=== PATIENT | female | born 1970 | race Caucasian/White ===

== ENCOUNTER 2023-03-06 11:05 | Outpatient (OUT) | payer MEDICAID, SELFPAY ==
--- NOTE | 2023-03-06 11:07 | MM_ITS ---
Patient Name: IKE JONES MR#: [id number] : 1970 Exam Date: 03/06/2023 Ordering Doctor: DR KAYE JARQUIN RADIOLOGY REPORT PROCEDURE: MM TOMOSYNTHESIS SCREENING BI COMPARISON: MG MAMM SCREEN 3D VONNIE CAD, 12/13/2021. MG MAMM SCREEN 3D VONNIE CAD, 11/23/2020. INDICATIONS: Screening Calculator Name NCI Breast Cancer Risk Assessment Tool 5 Year Breast Cancer Risk 1.40% Lifetime Breast Cancer Risk 11.50% Personal Breast Cancer No Personal Ovarian Cancer No Treatments None Family Cancers None LOCATION: [facility] BREAST COMPOSITION: Heterogeneously dense,which may obscure small masses. FINDINGS: DIAGNOSTIC CATEGORY 0--INCOMPLETE: NEED ADDITIONAL IMAGING EVALUATION. Scattered benign-appearing nodules are present. Scattered benign-appearing calcifications are present. Scattered benign-appearing left axillary lymph nodes are present. RIGHT BREAST: New partially circumscribed 2.6 x 2 cm mass lower inner quadrant, mid to posterior breast with associated microcalcifications. Spot imaging and ultrasound follow-up is required. New right axillary lymphadenopathy with an enlarged lymph node measuring 2.7 x 1.8 cm. LEFT BREAST: No significant suspicious finding. RECOMMENDATIONS: ADDITIONAL MAMMOGRAPHIC VIEWS REQUIRED: RIGHT BREAST - spot compression ULTRASOUND: RIGHT BREAST mass and enlarged axillary lymph node PLEASE NOTE: A NORMAL MAMMOGRAM DOES NOT EXCLUDE THE POSSIBILITY OF BREAST CANCER. A CLINICALLY SUSPICIOUS PALPABLE LUMP SHOULD BE BIOPSIED. Dictated by: Vaibhav Lopez MD on 03/06/2023 at 13:25 Approved by: Vaibhav Lopez MD on 03/06/2023 at 13:28
== END 2023-03-06 11:06 | disposition home or self-care (01) ==
LOC: MAMMO 11:05
PROVIDERS: PCP Nurse Practitioner Family; Visit Provider Nurse Practitioner Family
DX: Z12.31 Encounter for screening mammogram for malignant neoplasm of breast (principal); N63.14 Unspecified lump in the right breast, lower inner quadrant
CPT/HCPCS: 77063; 77067

== ENCOUNTER 2023-03-20 09:55 | Outpatient (OUT) | payer MEDICAID, SELFPAY ==
--- NOTE | 2023-03-20 | MM_ITS ---
Patient Name: IKE JONES MR#: [id number] : 1970 Exam Date: 03/20/2023 Ordering Doctor: EMELIA HANNA RADIOLOGY REPORT PROCEDURE: MM DIAGNOSTIC MAMMO UNILAT RT, 03/20/2023, 09:59 US BREAST RT LIMITED, 03/20/2023, 10:16 COMPARISON: MM TOMOSYNTHESIS SCREENING BI, 03/06/2023. INDICATIONS: Abnormal mammogram Calculator Name NCI Breast Cancer Risk Assessment Tool 5 Year Breast Cancer Risk 1.40% Lifetime Breast Cancer Risk 11.50% Personal Breast Cancer No Personal Ovarian Cancer No Treatments None Family Cancers None LOCATION: [facility] BREAST COMPOSITION: Heterogeneously dense,which may obscure small masses. FINDINGS: DIAGNOSTIC CATEGORY 5--HIGHLY SUGGESTIVE OF MALIGNANCY. HIGH PROBABILITY OF MALIGNANCY BASED ON THE FOLLOWING: Identified in the lower inner quadrant of the right breast is a persistent partially circumscribed 2.9 x 2.3 cm mass with pleomorphic calcifications. Identified by ultrasound is a corresponding 2.7 x 2.5 x 2.5 cm angular mass, round in shape with multiple calcifications. Malignancy is suspected. Ultrasound-guided core biopsy is recommended. Identified in the right axilla is enlarged 2.2 x 3.1 cm mass . Ultrasound demonstrates an atypical enlarged lymph node with a thickened cortex measuring 2.0 x 1.4 x 2.9 cm. RECOMMENDATIONS: ULTRASOUND-GUIDED CORE BIOPSY: RIGHT BREAST PLEASE NOTE: A NORMAL MAMMOGRAM DOES NOT EXCLUDE THE POSSIBILITY OF BREAST CANCER. A CLINICALLY SUSPICIOUS PALPABLE LUMP SHOULD BE BIOPSIED. Dictated by: Vaibhav Lopez MD on 03/23/2023 at 07:37 Approved by: Vaibhav Lopez MD on 03/23/2023 at 07:44
--- OUTSIDE RECORDS SUMMARY | 2023-03-20 10:00 | XMS_ITS | CCD ---
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 Name Role Phone SunshineUlisses Attending Unavailable Randy Calle Primary Care Unavailable Jesusita Gee Unavailable RANDY CALLE Primary Care Unavailable Reny, Hua Kraus Admitting Unavail able RenyHua martinez Attending Unavail able Reny, Hua Kraus Admitting Unavail able RANDY CALLE Primary Care Unavailable Reny, Hua Kraus Attending Unavail able RANDY CALLE Primary Care Unavailable Paco Giraldo Attending Unavailable RANDY CALLE Primary Care Unavailable Reny, Hua Kraus Admitting Unavail able RANDY CALLE Consulting Unavailable Reny, Hua Kraus Attending Unavail able Reny, Hua Kraus Admitting Unavail able RANDY CALLE Primary Care Unavailable Hiral Small Consulting Unavailable RenyHua Attending Unavail able RANDY CALLE Primary Care Unavailable Reny, Hua Kraus Admitting Unavail able Reny, Hua Kraus Attending Unavail able Reny, Hua Kraus Admitting Unavail able RANDY CALLE Primary Care Unavailable Reny, Hua Kraus Attending Unavail able KRYSTEN, DR ANNE Admitting Unavailable KRYSTEN, DR ANNE Attending Unavailable ALVA, DR RANDY Jaramillo Primary Care Unavailable KRYSTEN, DR ANNE Consulting Unavailable MILKA, DR KAYE Reynoso Admitting Unavailable MILKA, DR KAYE Reynoso Attending Unavailable ALVA, DR RANDY Jaramillo Primary Care Unavailable KRYSTEN, DR ANNE Consulting Unavailable HARTFORD, DR HIRAL Meza Consulting Unavailable MILKA, DR KAYE Reynoso Consulting Unavailable Jackson WILLETT Primary Care Physician [phone] RANDY CALLE Primary Care Physician [phone] Christopher Harrison Attending Unavailable Christopher Harrison Admitting Unavailable Reid Bauer Attending Unavailable Randy Calle Unavailable Unavailable Unavailable hCristy WRIGHT, Dr. Christopher Gtz Attending Unavailable Christy WRIGHT, Dr. Christopher Gtz Referring Unavailable Alva, Dr. Randy Meier [facility] Unava ilable Christy WRIGHT, Dr. Christopher Gtz Attending Unavailable Christy II, Dr. Christopher Gtz Referring [facility]available [facility] Randy [facility] Unava ilable Christy WRIGHT, Dr. Christopher Gtz Attending Unavailable Christy WRIGHT, Dr. Christopher Gtz Referring Unavailable Alva, Dr. Randy Meier [facility] Unava ilambar Michael, Ms. Brittani Rushing Attending Kristan Michael, Ms. Brittani Rushing Referring Kristan Calle, Dr. Randy Meier [facility] Unava ilBRITTANI Varela Attending Unavailable BRITTANI AVALOS Referring Unavailable Alva, Dr. Randy Meier Primary [facility] Unava ilable Allergies Allergy Classification Reported Allergen(s) Allergy Type Date of Onset Reaction(s) Facility (1 source) Meperidine Drug Allergy 9 [facility] Repository (9 sources) Meperidine; Translations: [meperidine] Drug Allergy anaphylaxis, Eruption of skin (disorder) [facility] [place] (1 source) Adhesive bandage; Translations: [Adhesive Bandage] Propensity to adverse reactions (disorder) [facility] Repository (3 sources) Meperidine; Translations: [Demerol] Drug Allergy 3 [facility] Repository (1 source) Adhesive agent Drug allergy (disorder) 5 [facility] Repository Medications Current Medications Medication Drug Class(es) Dates Sig (Normalized) Sig (Original) [id number] 200 actuat albuterol 0.09 mg/actuat metered dose inhaler (1 source) beta2-Adrenergic Agonist Start: 11-11-2021 take 2 puff(s) by inhalation every four hours as needed Albuterol Sulfate HFA 108 (90 Base) MCG/ACT 2 puffs as needed Inhalation every 4 hrs Oct, Active amoxicillin 875 mg / clavulanate 125 mg oral tablet (1 source) Penicillin-class Antibacterial Start: 11-11-2021 take 1 tablet by mouth every twelve hours Amoxicillin-Pot Clavulanate 875-125 MG 1 tablet Orally every 12 hrs for 7 days Oct, Active benzonatate 100 mg oral capsule (1 source) Non-narcotic Antitussive Start: 07-14-2022 End: 07-21-2022 take 1 capsule by mouth three times daily Tessalon 100 mg Cap 100 mg = 1 cap(s), Oral, TID, X 7 day(s), # 21 cap(s), Refills(s) 0, Pharmacy: [facility]/pharmacy #[id number], 180, cm, 07/14/22 14:05:00 EDT, Height/Length Dosing, 99.7, kg, 07/14/22 14:05:00 EDT, Weight Dosing Start Date: 07/14/22 Stop Date: 07/21/22 Status: Ordered carvedilol 25 mg oral tablet (3 sources) alpha-Adrenergic Bridgette, beta-Adrenergic Bridgette Start: 07-14-2022 carvedilol 25 mg Tab Refills(s) 0 Start Date: 07/14/22 Status: Ordered Coreg Active FeroSul 325 mg oral tablet (2 sources) Start: 07-14-2022 FeroSul 325 mg oral tablet Refills(s) 0 Start Date: 07/14/22 Status: Ordered hydroCHLOROthiazide 12.5 mg / lisinopril 20 mg oral tablet (2 sources) Thiazide Diuretic, Angiotensin Converting Enzyme Inhibitor Start: 07-14-2022 hydrochlorothiazide-l isinopril 12.5 mg-20 mg Tab Refill(s) 0 Start Date: 07/14/22 Status: Ordered Losartan (1 source) Angiotensin 2 Receptor Bridgette Cozaar Active methylPREDNISolone 4 mg oral tablet (1 source) Corticosteroid Start: 11-11-2021 methylPREDNISolone 4 MG as directed Orally Once a day for 6 days Oct, Active traZODone hydrochloride 50 mg oral tablet (9 sources) Serotonin Reuptake Inhibitor Start: 03-30-2020 take 1 mg by mouth twice daily traZODONE 50 mg Tab mg tab(s), Oral, BID Start Date: 03/30/20 Status: Ordered traZODone HCl Ac tive Completed/Discontinued Medications Medication Drug Class(es) Dates Sig (Normalized) Sig (Original) chlorthalidone 50 mg oral tablet (6 sources) Thiazide-like Diuretic Start: 07-21-2022 take 1 tablet by mouth once daily Chlorthalidone 50 MG Oral Tablet TAKE ONE TABLET BY MOUTH DAILY Quantity: 90 Refills: 3 Ordered: 22-Aug-2022 Christopher Harrison MD Start : 21-Jul-2022 Active dose increased Start: 07-21-2022 take 1 tablet by shane th once daily Chlorthalidone 25 MG Oral Tablet TAKE 1 TABLET Daily Quantity: 90 Refills: 3 Ordered: 21-Jul-2022 Christopher Harrison MD Start : 21-Jul-2022 Active cyclobenzaprine hydrochloride 10 mg oral tablet (2 sources) Muscle Relaxant take 1 tablet by mouth at bedtime as needed Cyclobenzaprine HCl - 10 MG Oral Tablet TAKE 1 TABLET AT BEDTIME NEEDED. Quantity: 0 Refills: 0 Ordered: 29-Sep-2022 DO Active lisinopril 20 mg oral tablet (6 sources) Angiotensin Converting Enzyme Inhibitor Start: 023 take 1 tablet by mouth once daily Lisinopril 20 MG Oral Tablet TAKE 1 TABLET DAILY. Quantity: 90 Refills: 3 Ordered: 21-Jul-2022 Christopher Harrison MD Start : 21-Jul-2022 Active 24 hr metoprolol succinate 100 mg extended release oral tablet (6 sources) beta-Adrenergic Bridgette Start: 023 take 1 tablet by mouth once daily Metoprolol Succinate ER 100 MG Oral Tablet Extended Release 24 Hour Take 1 tablet daily Quantity: 90 Refills: 3 Ordered: 21-Jul-2022 Christopher Harrison MD Start : 21-Jul-2022 Active microencapsulated potassium chloride 20 meq extended release oral tablet (6 sources) Start: 023 take 1 tablet by mouth once daily Klor-Con M20 20 MEQ Oral Tablet Extended Release Take 1 tablet daily Quantity: 90 Refills: 3 Ordered: 18-Aug-2022 Christopher Harrison MD Start : 18-Aug-2022 Active Problems Active Problems Problem Classification Problem Date Documented Date Episodic/Chronic Cardiac dysrhythmias (4 sources) Cardiac arrhythmia 03-30-2020 Chronic Essential hypertension (7 sources) Hypertensive disorder; Translations: [Unspecified essential hypertension] Onset: 10-14-2022 Chronic Fluid and electrolyte disorders (6 sources) Hypokalemia; Translations: [Hypopotassemia] Episodic Immunizations and screening for infectious disease (1 source) Encounter for screening for human papillomavirus (HPV); Translations: [ENC SCREENING HUMAN PAPILLOMAVIRUS] Onset: 12-29-2021 Episodic Other nutritional; endocrine; and metabolic disorders (1 source) Obese class I; Translations: [Body mass index (BMI) 30.0-30.9, adult] Onset: 07-14-2022 Chronic Other nutritional; endocrine; and metabolic disorders (9 sources) Obesity; Translations: [Obesity, unspecified] Onset: 07-14-2022 Chronic Other screening for suspected conditions (not mental disorders or infectious disease) (8 sources) Encounter for screening for malignant neoplasm of cervix; Translations: [Encounter for screening mammogram for malignant neoplasm of breast] Onset: 12-13-2021 Episodic Other skin disorders (2 sources) Epidermoid cyst of skin 03-30-2020 Episodic Other upper respiratory infections (1 source) Acute upper respiratory infection; Translations: [Acute upper respiratory infection, unspecified] Onset: 07-14-2022 Episodic Residual codes; unclassified (6 sources) Edema; Translations: [Edema] Episodic Residual codes; unclassified (1 source) Edema, unspecified; Translations: [Edema, unspecified] Onset: 10-14-2022 Episodic Unclassified (1 source) Contact with and (suspected) exposure to covid-19; Translations: [Contact with and (suspected) exposure to covid-19] Past or Other Problems Problem Classification Problem Date Documented Da te Episodic/Chronic Chronic obstructive pulmonary disease and bronchiectasis (1 source) Bronchitis, not specified as acute or chronic Onset: 11-11-2021 Resolved: 11-11-2021 Episodic Otitis media and related conditions (1 source) Otitis media, unspecified, bilateral Onset: 11-11-2021 Resolved: 11-11-2021 Episodic Unclassified (1 source) Contact with and (suspected) exposure to covid-19 Z20.822 Onset: 11-11-2021 Resolved: 11-11-2021 Unclassified (2 sources) Excision of lipoma 03-30-2020 Unclassified (6 sources) Never smoked tobacco; Translations: [Never a smoker] Results Test Name Value Interpretation Reference Range Facility CT Cardiac Scoringon 023 CT Cardiac Scoring Normal -[facility] DO Work Phone: Office Visit (Cardiology)on 09-29-2022 Follow-up visit Diagnoses/Problems Assessed Hypertension (401.9) (I10) Edema (782.3) (R60.9) Class 1 obesity with body mass index (BMI) of 31.0 to 31.9 in adult (278.00,V85.31) (E66.9,Z68.31) Orders Class 1 obesity with body mass index (BMI) of 31.0 to 31.9 in adult Healthy Weight Tips; Status:Complete; Done: [id number] Edema, Hypertension Basic Metabolic Panel; Status:Active; Requested for:[id number]; CT Cardiac Scoring; Status:Active; Requested for:[id number]; Patient taking Metformin or Derivatives? : No Radiologist to Determine Optimal Study : Y What are the patient's signs and symptoms? : JOSE Patient Instructions Please bring all medicines, vitamins, and herbal supplements with you when you come to the office. Prescriptions will not be filled unless you are compliant with your follow up appointments or have a follow up appointment scheduled as per instruction of your physician. Refills should be requested at the time of your visit. PLAN: Through informed decision making process incorporating patients unique circumstances, the following treatment plan will be initiated: 1. Prescription drug management of cardiovascular medication for efficacy, adherence to treatment, side effect assessment and polypharmacy. Current treatment clinically warranted and to continue without modifications. 2. Calcium Score 3. Chem6 4. Return for follow-up; in the interim, contact the office if new symptoms arise. Dr. Harrison 6 months Chief Complaint Blood pressure f/u : 'doing fine' IKE JONES is being seen for a 3 month follow-up of hypertension. Patient presents the office ambulatory with steady gait. Last evaluated in clinic Dr. Harrison June 2022. At that time she was initiated on chlorthalidone and Toprol (prior carvedilol and hydrochlorothiazide discontinued); repeat potassium 2.9 and K-Dur 20 milliequivalents added. At blood pressure follow-up remain with suboptimal control and chlorthalidone was increased to 50 mg daily. Patient presents to the office today overall she reports doing just fine . She does not follow her blood pressure at home. She denies any dizziness or lightheadedness. She remains aerobically active working out 30 minutes cardio and 30 minutes weight lifting, denies any type of exertional complaints. She feels she is becoming more conditioned with improvement in exercise capacity and functional tolerance. She has noted that her lower extremity edema is improving. She denies prior ischemic work-up. Low risk factor profile with treated hypertension, otherwise no hyperlipidemia, diabetes, non-smoker. She is adopted. Discussed availability of calcium score as an additional CAD risk factor predictor and she is in agreement to proceed. She is having difficult time swallowing Kater tablets. We will repeat Chem-6 to follow-up on hypokalemia. Consider adding low-dose Aldactone if warranted. History of Present Illness The patient presents for follow-up of essential hypertension. The patient states she has been doing well with her blood pressure control since the last visit. She has no comorbid illnesses. Symptoms: denies impaired vision, denies dyspnea, denies chest pain, denies intermittent leg claudication and denies lower extremity edema. Associated symptoms include no headache. Home monitoring: The patient is not checking blood pressure at home. Medications: the patient is adherent with her medication regimen. She denies medication side effects. Surgical History Problems History of Breast biopsy excisional Denied: History of Complete colonoscopy History of Hysterectomy Current Meds Medication NameInstruction Chlorthalidone 50 MG Oral TabletTAKE ONE TABLET BY MOUTH DAILY Cyclobenzaprine HCl - 10 MG Oral TabletTAKE 1 TABLET AT BEDTIME NEEDED. Klor-Con M20 20 MEQ Oral Tablet Extended ReleaseTake 1 tablet daily Lisinopril 20 MG Oral TabletTAKE 1 TABLET DAILY. Metoprolol Succinate ER 100 MG Oral Tablet Extended Release 24 HourTake 1 tablet daily traZODone HCl - 50 MG Oral TabletTAKE 1 TABLET AT BEDTIME. Patient did not bring medication list or bottles. Updated verbally with patient Allergies Medication Demerol TABS Swelling; Recorded By: Radha Norwood; 07/21/2022 8:10:36 AM Social History Problems Never a smoker No caffeine use No illicit drug use Social alcohol use (V49.89) (Z78.9) Review of Systems Constitutional: not feeling tired. Cardiovascular: no chest pain, no palpitations and no lower extremity edema. Respiratory: no shortness of breath during exertion, no orthopnea and no PND. Vitals Vital Signs Recorded: [id number] 02:29PM Heart Rate76, L Radial [id number], LUE, Sitting Okjkguwkp73, LUE, Sitting Height5 ft 11 in Jvgbhn289 lb BMI Hbdddjaudb48.52 kg/m2 BSA Calculated2.22 Tobacco Useb) No PHQ-2 #1. Over the last 2 weeks have you felt down, depressed or hopeless? (If yes, answer PHQ-9 below)No PHQ-2 #2. Over the last 2 weeks have you felt little inter (more content not included)... Normal [employer] Tobacco Screening.on 023 Adult depression screening assessment No -[facility] 250 DO Work Phone: Fall risk assessment c) Not medically indicated [facility] 250 DO Work Phone: Tobacco use status CP b) No -[facility] 250 DO Work Phone: Tobacco Screening.on 023 Tobacco use status CPHS b) No [facility] 250 DO Work Phone: BMPon 08-15-2022 Anion gap [Moles/Vol] 10 mmol/L Normal -16 [facility] Comment on above: Performed By: #### 2 [id number], [id number], [id number] #### [facility] [address] [place] [address] Calcium [Mass/Vol] 9.7 mg/dL Normal 8.9-11.1 [facility] Comment on above: Performed By: #### 2 [id number], [id number], [id number] #### [facility] [address] [place] [address] Chloride [Moles/Vol] 102 mmol/L Normal 101-111 [facility] Comment on above: Performed By: #### 2 [id number], [id number], [id number] #### [facility] [address] [place] [address] CO2 [Moles/Vol] 29 mmol/L Normal 21-31 [facility] Comment on above: Performed By: #### 2 [id number], [id number], [id number] #### [facility] [address] [place] [address] Creatinine [Mass/Vol] 0.7 mg/dL Normal 0.5-1.3 [facility] Comment on above: Performed By: #### 2 [id number], [id number], [id number] #### [facility] [address] [place] [address] Glucose [Mass/Vol] 92 mg/dL Normal 55-199 [facility] Comment on above: Result Comment: If t his glucose result represents a fasting glucose, interpretation should refer to the following reference range: 55-99 mg/dL Performed By: #### 2 [id number], [id number], [id number] #### [facility] [address] [place] [address] Potassium [Moles/Vol] 2.9 mmol/L Low 3.5-5.3 [facility] Comment on above: Performed By: #### 2 [id number], [id number], [id number] #### [facility] [address] [place] [address] Sodium [Moles/Vol] 138 mmol/L Normal 135-145 [facility] Comment on above: Performed By: #### 2 [id number], [id number], [id number] #### [facility] [address] [place] [address] Urea nitrogen [Mass/Vol] 15 mg/dL Normal 5-21 [facility] Comment on above: Performed By: #### 2 [id number], [id number], [id number] #### [facility] [address] [place] [address] Urea nitrogen/Creatinine [Mass ratio] 21 No Units High 10-20 [facility] Comment on above: Performed By: #### 2 [id number], [id number], [id number] #### [facility] [address] [place] [address] BNPon 08-15-2022 Int Ctr BNP Pass Normal [facility] Comment on above: Performed By: #### 2 [id number], [id number], [id number] #### [facility] [address] [place] [address] Natriuretic peptide B (Bld) [Mass/Vol] 23 pg/mL Normal 5-80 [facility] Comment on above: Performed By: #### 2 [id number], [id number], [id number] #### [facility] [address] [place] [address] CHEMISTRYOrdered By: SYSTEM SYSTEM on 08-15-2022 Anion gap [Moles/Vol] 10 mmol/L Normal 6 - 16 mEq/L [facility] Remisol Calcium [Mass/Vol] 9.7 mg/dL Normal 8.9 - 11. 1 mg/dL FT Remisol Chloride [Moles/Vol] 102 mmol/L Normal 101 - 111 mmol/L [facility] Remisol Creatinine [Mass/Vol] 0.7 mg/dL Normal 0.5 - 1.3 mg/dL [facility] Remisol GFR/1.73 sq M.predicted among non-blacks MDRD (S/P/Bld) [Vol rate/Area] 105 mL/min/1.73 m2 Normal >=59mL/min/1 .73 m2 [facility] Chem S Glucose [Mass/Vol] 92 mg/dL Normal 55 - 199 mg/dL [facility] Remisol Potassium [Moles/Vol] 2.9 mmol/L Low 3.5 - 5.3 mmol/L [facility] Remisol Sodium [Moles/Vol] 138 mmol/L Normal 135 - 145 mmol/L [facility] Remisol Urea nitrogen [Mass/Vol] 15 mg/dL Normal 5 - 21 mg/dL [facility] Remisol Urea nitrogen/Creatinine [Mass ratio] 21 mg/mg High 10 - 20 FT Remisol Consent for Treatmenton 07-31 Consent for Treatment [id number] 0CD:127 Normal [facility] Laboratory - Chemistry and C hemistry - challengeOrdered By: SYSTEM SYSTEM on 08-15-2022 CO2 [Moles/Vol] 29 mmol/L Normal 21-31 [facility] Niko yuliet Laboratory - Chemistry and C hemistry - challengeOrdered By: Jackson Bettencourt on 08-15-2022 Natriuretic peptide B (Bld) [Mass/Vol] 23 pg/mL Normal 5-80 [facility] HemeJamarS S No Panel Informationon 08-15 105 {mL/min/1.73_m2} Normal >=59 [facility] 250 DO Work Phone: Comment on above: Chronic kidney disea se could be indicated at eGFR's of less than 60 mL/min/1.73m2. Kidney failure is indicated at less than 15 mL/min/1.73m2. 10 {mEq/L} Normal 6-16 [facility] 250 DO Work Phone: 102 mmol/L Normal 101-111 [facility] 250 DO Work Phone: 2.9 mmol/L below low threshold 3.5-5.3 [facility] 250 DO Work Phone: 138 mmol/L Normal 135-145 [facility] 250 DO Work Phone: 9.7 mg/dL Normal 8.9-11.1 [facility] 250 DO Work Phone: 21 {No_Units} above high threshold 10-20 [facility] 250 DO Work Phone: 0.7 mg/dL Normal 0.5-1.3 [facility] 250 DO Work Phone: 15 mg/dL Normal 5-21 [facility] 250 DO Work Phone: 92 mg/dL Normal 55-199 [facility] 250 DO Work Phone: Comment on above: If this glucose resu lt represents a fasting glucose, interpretation should refer to the following reference range: 55-99 mg/dL Pass Normal [facility] 250 DO Work Phone: Physician Orderon 08-15-2022 Physician Order [id number] 0CD:127 Normal [facility] eGFRon 08-15-2022 GFR/1.73 sq M.predicted among non-blacks MDRD (S/P/Bld) [Vol rate/Area] 105 mL/min/1.73 m2 Normal >=59 [facility] Comment on above: Order Comment: Order added by Discern Expert. Result Comment: Treasury Director medina kidney disease could be indicated at eGFR's of less than 60 mL/min/1.73m2. Kidney failure is indicated at less than 15 mL/min/1.73m2. Performed By: #### 2 [id number], [id number], [id number] #### [facility] [address] [place] [address] Office Visit (Cardiology)on 07-21-2022 Follow-up visit Diagnoses/Problems Assessed Hypertension (401.9) (I10) Edema (782.3) (R60.9) Class 1 obesity with body mass index (BMI) of 30.0 to 30.9 in adult (278.00,V85.30) (E66.9,Z68.30) Never a smoker Orders Class 1 obesity with body mass index (BMI) of 30.0 to 30.9 in adult Healthy Weight Tips; Status:Complete - Retrospective Authorization; Done: 21Jul2022 Some eating tips that can help you lose weight.; Status:Complete - Retrospective Authorization; Done: 21Jul2022 Class 1 obesity with body mass index (BMI) of 30.0 to 30.9 in adult, Edema, Hypertension Basic Metabolic Panel; Status:Active - Retrospective Authorization; Requested for:04Aug2022; Brain Natriuretic Peptide BNP; Status:Active - Retrospective Authorization; Requested for:04Aug2022; Health Maintenance IO EKG Electrocardiogram- 12 Lead; Status:Complete; Done: 21Jul2022 Hypertension Start: Chlorthalidone 25 MG Oral Tablet; TAKE 1 TABLET Daily Start: Lisinopril 20 MG Oral Tablet; TAKE 1 TABLET DAILY Start: Metoprolol Succinate ER 100 MG Oral Tablet Extended Release 24 Hour; Take 1 tablet daily SocHx: Never a smoker Tobacco Use Screening; Status:Complete; Done: [id number] Tobacco Use Screening; Status:Complete; Done: [id number] Unlinked Stop: Coreg 25 MG Oral Tablet (Carvedilol) Stop: Lisinopril-hydroCHLORO thiazide 20-12.5 MG Oral Tablet Patient Instructions Please bring all medicines, vitamins, and herbal supplements with you when you come to the office. Prescriptions will not be filled unless you are compliant with your follow up appointments or have a follow up appointment scheduled as per instruction of your physician. Refills should be requested at the time of your visit. Blood Pressure Follow Up In 1 month Follow up in 3 months Chief Complaint IKE JONES is being seen for an initial evaluation of hypertension. History of Present Illness Patient is self-referred for management of essential hypertension. She is on polypharmacy and today has good control but she states that there is significant fluctuation in blood pressures and that more often than not she has high readings. She previously been on Toprol-XL was changed to carvedilol for unknown reasons. I offered to her that this agent is probably superior for blood pressure control and recommend going back to it. I also know she is on lisinopril which is an effective agent but the hydrochlorothiazide could be changed to a more effective thiazide diuretic such as chlorthalidone and I recommended this change as well. Because of the aforementioned changes made we will perform follow-up chemistries including a B natruretic peptide mainly because of her complaints of leg edema. I proposed a blood pressure check in about a month and office visit with me in about 3 months. We discussed in detail other cardiac signs and symptoms and she has no angina heart failure or arrhythmia symptomatology and because of all the above we believe she is otherwise well. I did advocate the merits of diet and weight loss and its favorable impact on hypertension. Surgical History Problems History of Breast biopsy excisional Denied: History of Complete colonoscopy History of Hysterectomy Current Meds Medication NameInstruction Coreg 25 MG Oral TabletTAKE 1 TABLET Twice daily Lisinopril-hydroCHLORO thiazide 20-12.5 MG Oral TabletTAKE 1 TABLET DAILY. traZODone HCl - 50 MG Oral TabletTAKE 1 TABLET AT BEDTIME. Allergies Medication Demerol TABS Swelling; Recorded By: Radha Norwood; 07/21/2022 8:10:36 AM Social History Problems Never a smoker No caffeine use No illicit drug use Social alcohol use (V49.89) (Z78.9) Review of Systems Constitutional: not feeling tired. Eyes: no eyesight problems. ENT: no hearing loss and no nosebleeds. Cardiovascular: no intermittent leg claudication and as noted in HPI. Respiratory: no chronic cough and no shortness of breath. Gastrointestinal: no change in bowel habits and no blood in stools. Genitourinary: no urinary frequency. Skin: no skin rashes. Neurological: no seizures and no frequent falls. Psychiatric: no depression and not suicidal. All other systems have been reviewed and are negative for complaint. Vitals Vital Signs Recorded: [id number] 08:15AMRecorded: [id number] 08:14AM Kubugltn950, RUE, Ojfnhhg221, LUE, Sitting Mjmvjfjxi00, RUE, Kznxniy50, LUE, Sitting Heart Rate59, Apical Height5 ft 11 in Thfrgr966 lb BMI Pazyygxwgu19.82 kg/m2 BSA Calculated2.2 Tobacco Useb) No PHQ-2 #1. Over the last 2 weeks have you felt down, depressed or hopeless? (If yes, answer PHQ-9 below)No PHQ-2 #2. Over the last 2 weeks have you felt little interest or pleasure in doing things? (If yes, answer PHQ-9 below)No Falls Screening (Age 18+)a) No falls within the last year EKG done in office today Physical Exam Constitutional: alert and in no acute distress. Eyes: no erythema, swelling or discharge from the eye . Neck: ne (more content not included)... Normal [employer] Tobacco Screening.on 023 Adult depression screening assessment No [facility] [facility] Work Phone: Fall risk assessment a) No falls within the last year [facility] 250 DO Work Phone: Tobacco use status CP b) No -[facility] 250 DO Work Phone: Family Medicine Office/Clini c Noteon 07-14-2022 Family Medicine Office/Clinic Note Chief Complaint EST migraine ,congestion cough, chest HPI Staff 51 year old female presents with migraine and body aches started with migraine nirav afternoon and then it was both head and chest History of Present Illness I have reviewed and verified the staff HPI to be accurate for this encounter. 51-year-old female presents here today with chief complaint of migraine and body aches. Patient states she had a migraine that started Thursday afternoon she has a history of chronic migraines that is not the worst headache of her life this is not a thunderclap headache. States it feels like her typical migraines. States some light sensitivity intermittent nausea no vomiting episodes. Denies any head injuries or trauma. She states then she developed some cold-like symptoms with cough and congestion. States the nasal congestion and cough is not helping with her headache. Denies a loss of taste or smell. Cough is dry nonproductive. She denies any recent sick contacts or recent travel denies any high fevers chills. Denies any COVID-19 exposure that she is aware of. States only medication allergies to Demerol. Review of Systems PHQ Score Initial Depression Screen Score: 0 Physical Exam Vitals & Measurements T: 37.4 ?C(Oral) HR: 76(Peripheral) BP: 120/86 SpO2: 98% HT: 71 in HT: 180 cm WT: 99.7 kg WT: 219.34 lb BMI: 30.77 General: Well developed, well nourished, in no acute distress Eyes: not assessed Ears: Bilateral tympanic membranes are within normal limits slight fluid behind bilateral TMs no erythema no bulging. External auditory canals within normal limits. Nose: mild nasal mucosa inflammation and edema Mouth: No tonsillar erythema or exudate. No signs of peritonsillar abscess. No trismus or drooling. Moist mucous membrane. Neck: no adenopathy Lungs: clear to auscultation throughout, no wheezing, no rales. No respiratory distress Cardio: regular rate and rhythm, no murmur Abdomen: not assessed Musculoskeletal: not assessed Extremity: not assessed Neurologic: not assessed Skin: No rashes, ulcerations, or suspicious lesions Mental Status: Alert and oriented x3. Normal mood and affect Assessment/Plan Offered patient COVID-19 testing which she declines. 1. Viral URI (J06.9: Acute upper respiratory infection, unspecified) Discussed exam and hx are consistent with viral illness. Advised of typical duration. Discussed antibiotics unfortunately do not treat viral illnesses, it will take time to run course- usually 7-14 days. Fluids/rest encouraged, PRN tylenol/ibuprofen for any pain. May use tessalon one eveyr 8 hours as needed for cough for symptomatic tx. this was sent to the pharmacy for you. Follow up with PCP if not improving over next 7-10 days or significantly worsening symptoms. Patient and/or parent verbalized understanding of tx plan. Ordered: benzonatate, 100 mg = 1 cap(s), Oral, TID, X 7 day(s), # 21 cap(s), Refills(s) 0, Pharmacy: [facility]/pharmacy #[id number], 180, cm, 07/14/22 14:05:00 EDT, Height/Length Dosing, 99.7, kg, 07/14/22 14:05:00 EDT, Weight Dosing 2. BMI 30.0-30.9,adult (Z68.30: Body mass index [BMI] 30.0-30.9, adult) The standard range for ages 18 and older is >=18.5 and < 25 kg/m2. Your BMI today was above this range, this falls in the overweight to obese category and there are medical benefits to weight loss. We can offer counselling, referral, and/or medical support in addressing this problem. Your BMI and weight management will be followed at subsequent visits. Ordered: Body Mass Index (BMI) documented 3008F 3. Obese (E66.9: Obesity, unspecified) discussed healthy diet and exercise with the pt. Follow-up With When Contact Information BRENNON JAMESON, BOBBY Sifuentes Additional Instructions: Patient Education BMI for Adults Upper Respiratory Infection, Adult Problem List/Past Medical History Ongoing Dysrhythmia, cardiac Epidermal cyst Historical Cardiac dysrhythmia Excision of lipoma Procedure/Surgical History Hysterectomy (03/02/2005), Lipoma of back. Medications carvedilol 25 mg Tab FeroSul 325 mg oral tablet hydrochlorothiazide-li sinopril 12.5 mg-20 mg Tab Tessalon 100 mg Cap, 100 mg= 1 cap(s), Oral, TID traZODONE 50 mg Tab, Oral, BID Allergies Demerol (Rash) Social History Alcohol - Denies Alcohol Use, 03/30/2020 Substance Abuse - Denies Substance Abuse, 03/30/2020 Tobacco Never (less than 100 in lifetime) Tobacco Use:. Never Smokeless Tobacco Use:., 07/14/2022 Family History Patient was adopted Immunizations Vaccine Date Status Comments SARS-CoV-2 (COVID-19) mRNA BNT-162b2 vax 12/06/2020 Recorded 2022-07-14: TPV50 SARS-CoV-2 (COVID-19) mRNA BNT-162b2 vax 11/15/2020 Recorded 2022-07-14: TPV50 influenza virus vaccine, inactivated 11/20/2019 Recorded influenza virus vaccine, inactivated 11/14/2019 Recorded influenza virus vaccine, inactivated 12/13/2018 Recorded influenza virus vaccine, inactivated 12/10/2017 Recorded diphtheria/pertussis, riri (more content not included)... Normal [facility] Comment on above: Result Comment: Elec tronically Signed By: Juancarlos CONTE, Reid Mcgregor\.br\Date and Time Signed: 07/14/22 14:20 EDT Patient Educationon 07-15-19 Patient Education Infectious Disease Upper Respiratory Infection, Adult An upper respiratory infection (URI) is a common viral infection of the nose, throat, and upper air passages that lead to the lungs. The most common type of URI is the common cold. URIs usually get better on their own, without medical treatment. What are the causes? A URI is caused by a virus. You may catch a virus by: ? Breathing in droplets from an infected person's cough or sneeze. ? Touching something that has been exposed to the virus (is contaminated) and then touching your mouth, nose, or eyes. What increases the risk? You are more likely to get a URI if: ? You are very young or very old. ? You have close contact with others, such as at work, school, or a health care facility. ? You smoke. ? You have long-term (chronic) heart or lung disease. ? You have a weakened disease-fighting system (immune system). ? You have nasal allergies or asthma. ? You are experiencing a lot of stress. ? You have poor nutrition. What are the signs or symptoms? A URI usually involves some of the following symptoms: ? Runny or stuffy (congested) nose. ? Cough. ? Sneezing. ? Sore throat. ? Headache. ? Fatigue. ? Fever. ? Loss of appetite. ? Pain in your forehead, behind your eyes, and over your cheekbones (sinus pain). ? Muscle aches. ? Redness or irritation of the eyes. ? Pressure in the ears or face. How is this diagnosed? This condition may be diagnosed based on your medical history and symptoms, and a physical exam. Your health care provider may use a swab to take a mucus sample from your nose (nasal swab). This sample can be tested to determine what virus is causing the illness. How is this treated? URIs usually get better on their own within 7?10 days. Medicines cannot cure URIs, but your health care provider may recommend certain medicines to help relieve symptoms, such as: ? Mpcv-buf-xvmrpxb cold medicines. ? Cough suppressants. Coughing is a type of defense against infection that helps to clear the respiratory system, so take these medicines only as recommended by your health care provider. ? Fever-reducing medicines. Follow these instructions at home: Activity ? Rest as needed. ? If you have a fever, stay home from work or school until your fever is gone or until your health care provider says your URI cannot spread to other people (is no longer contagious). Your health care provider may have you wear a face mask to prevent your infection from spreading. Relieving symptoms ? Gargle with a mixture of salt and water 3?4 times a day or as needed. To make salt water, completely dissolve ??1 tsp (3?6 g) of salt in 1 cup (237 mL) of warm water. ? Use a cool-mist humidifier to add moisture to the air. This can help you breathe more easily. Eating and drinking ? Drink enough fluid to keep your urine pale yellow. ? Eat soups and other clear broths. General instructions ? Take csym-kxh-wbhagoc and prescription medicines only as told by your health care provider. These include cold medicines, fever reducers, and cough suppressants. ? Do not use any products that contain nicotine or tobacco. These products include cigarettes, chewing tobacco, and vaping devices, such as e-cigarettes. If you need help quitting, ask your health care provider. ? Stay away from secondhand smoke. ? Stay up to date on all immunizations, including the yearly (annual) flu vaccine. ? Keep all follow-up visits. This is important. How to prevent the spread of infection to others URIs can be contagious. To prevent the infection from spreading: ? Wash your hands with soap and water for at least 20 seconds. If soap and water are not available, use hand manager erp. ? Avoid touching your mouth, face, eyes, or nose. ? Cough or sneeze into a tissue or your sleeve or elbow instead of into your hand or into the air. Contact a health care provider if: ? You are getting worse instead of better. ? You have a fever or chills. ? Your mucus is brown or red. ? You have yellow or brown discharge coming from your nose. ? You have pain in your face, especially when you bend forward. ? You have swollen neck glands. ? You have pain while swallowing. ? You have white areas in the back of your throat. Get help right away if: ? You have shortness of breath that gets worse. ? You have severe or persistent: ? Headache. ? Ear pain. ? Sinus pain. ? Chest pain. ? You have chronic lung disease along with any of the following: ? Making high-pitched whistling sounds when you breathe, most often when you breathe out (wheezing). ? Prolonged cough (more than 14 days). ? Coughing up blood. ? A change in your usual mucus. ? You have a stiff neck. ? You have changes in your: ? Vision. ? Hearing. ? Thinking. ? Mood. These symptoms may be an emergency. Get help (more content not included)... Normal [facility] PAP ACOG PANEL 2: 30 to 65on 01-03-2022 . . Normal [facility] Comment on above: Result Comment: Perf ormed at: WB Performed By: #### 4 [id number] #### [facility] [address] [address] [address] Daniel Mcgregor Age Gdln ACOG Testing 30-65 Normal [facility] Comment on above: Performed By: #### 4 [id number] #### [facility] [address] [place], [place] [address] Dr. Daniel Mcgregor DIAGNOSIS: Comment Normal [facility] Comment on above: Result Comment: NEGA TIVE FOR INTRAEPITHELIAL LESION OR MALIGNANCY. Performed at: WB Performed By: #### 4 [id number] #### [facility] [address] [address] [address] Daniel Mcgregor HPV Aptima Negative Normal Negative [facility] Comment on above: Result Comment: This nucleic acid amplification test detects fourteen high-risk HPV types (16,18,31,33,35,39,45,51,52,56,58,59,66,68) without differentiation. Performed at: =G Performed By: #### 4 [id number] #### [facility] [address] [address] [address] Daniel Mcgregor HPV Genotype Reflex Comment Normal [facility] Comment on above: Result Comment: Crit eria not met, HPV Genotype not performed. Performed at: WB Performed By: #### 4 [id number] #### [facility] [address] [place] [address] Dr. Daniel Mcgregor Methodology: Comment Normal [facility] Comment on above: Result Comment: This liquid based ThinPrep(R) pap test was screened with the use of an image guided system. Performed at: WB Performed By: #### 4 [id number] #### [facility] [address] [place] [address] Dr. Daniel Mcgregor Note: Comment Normal [facility] Comment on above: Result Comment: The Pap smear is a screening test designed to aid in the detection of premalignant and malignant conditions of the uterine cervix. It is not a diagnostic procedure and should not be used as the sole means of detecting cervical cancer. Both false-positive and false-negative reports do occur. . Performed at: WB Performed By: #### 4 [id number] #### [facility] [address] [address] [address] Daniel Mcgregor Performed by: Comment Normal [facility] Comment on above: Result Comment: Roxann Ambriz [employer] Sales Consultant (ASCP) Performed at: WB Performed By: #### 4 [id number] #### [facility] [address] [place] [address] Dr. Daniel Mcgregor Specimen adequacy: Comment Normal [facility] Comment on above: Result Comment: Sati sfactory for evaluation. No endocervical component is identified. Performed at: WB Performed By: #### 4 [id number] #### [facility] [address] [address] [address] Daniel Mcgregor MG MAMM SCREEN 3D VONNIE CADon 12-13-2021 MG MAMM SCREEN 3D VONNIE CAD Patient: IKE JONES Exam Date: 12/13/2021 : 1970 Gender:F Ordering : DR KAYE JARQUIN Admission #: [id number] Family : DR DAYANA BASHIR . Order #: [id number] CLICK HERE TO VIEW EXAM RADIOLOGY REPORT PROCEDURE: MAMMOGRAM SCREENING 3D BILATERAL CAD COMPARISON: MG MAMM SCREEN 3D VONNIE CAD, 11/23/2020. MG MAMM SCREEN VONNIE W CAD, 11/11/2019. INDICATIONS: Screening mammography Calculator Name NCI Breast Cancer Risk Assessment Tool 5 Year Breast Cancer Risk 1.40% Lifetime Breast Cancer Risk 11.70% Personal Breast Cancer No Personal Ovarian Cancer No Treatments None Family Cancers None LOCATION: [facility] BREAST COMPOSITION: Heterogeneously dense,which may obscure small masses. FINDINGS: DIAGNOSTIC CATEGORY 1--NEGATIVE. NO CHANGE FROM COMPARISON ASSESSMENT. Scattered benign-appearing calcifications are present. Scattered benign-appearing lymph nodes are present. RIGHT BREAST: No significant suspicious finding. Linear scar marker upper outer quadrant. Micro clip marker upper outer quadrant, mid breast. LEFT BREAST: No significant suspicious finding. RECOMMENDATIONS: ROUTINE MAMMOGRAM AND CLINICAL EVALUATION IN 12 MONTHS. PLEASE NOTE: A NORMAL MAMMOGRAM DOES NOT EXCLUDE THE POSSIBILITY OF BREAST CANCER. A CLINICALLY SUSPICIOUS PALPABLE LUMP SHOULD BE BIOPSIED. Dictated by: Hiral Lopez MD on 12/13/2021 at 08:37 Approved by: Hiral Lopez MD on 12/13/2021 at 08:39 Normal [facility] COVID Quick Testingon 2021 Result Negative [employer] Other BASIC METABOLIC PANELon 08-31 BUN/CREATININE RATIO NOT APPLICABLE Normal 6- [facility] Comment on above: Performed By: #### 5 530, 52737, 09144 #### [facility] [address], [address] [place] [id number] [address]Rd Mate: Hercalio Miller MD Calcium [Mass/Vol] 9.7 mg/dL Normal 8.6-10.4 [facility] Comment on above: Performed By: #### 5 616, , 39235 #### [facility] [place] [address] [address] Mate: Heraclio Miller MD Chloride [Moles/Vol] 103 mmol/L Normal 98-110 [facility] Comment on above: Performed By: #### 5 616, , #### [facility] [place] [address] [address] Mate: Heraclio Miller MD CO2 [Moles/Vol] 30 mmol/L Normal 20-32 [facility] Comment on above: Performed By: #### 5 616, , #### [facility] [place] [address] [address] Mate: Heraclio Miller MD Creatinine [Mass/Vol] 0.77 mg/dL Normal 0.50-1.03 [facility] Comment on above: Performed By: #### 5 616, , #### [facility] [place] [address] [address] Mate: Heraclio Miller MD GFR/1.73 sq M.predicted among non-blacks MDRD (S/P/Bld) [Vol rate/Area] 94 mL/min/{1.73_m2} Normal > OR = 60 [facility] Comment on above: Result Comment: The eGFR is based on the CKD-EPI 202 equation. To calculate the new eGFR from a previous Creatinine or Cystatin C result, go to https://www.kidney.org/professionals/ kdoqi/gfr%5Fcalculator Performed By: #### 5 616, 62497, 70922 #### [facility] [place] [address] [address] Mate: Heraclio Miller MD Glucose [Mass/Vol] 91 mg/dL Normal 65-99 [facility] Comment on above: Result Comment: Fasting reference interval Performed By: #### 5 106, 84387, 94247 #### [facility] of [address], [address] [place] [address] 3Rd Mate: Heraclio Miller MD Potassium [Moles/Vol] 3.4 mmol/L Low 3.5-5.3 [facility] Comment on above: Performed By: #### 5 616, , #### [facility] of [address], [address] [place] [address] [address]Rd Mate: Heraclio Miller MD Sodium [Moles/Vol] 140 mmol/L Normal 135-146 [facility] Comment on above: Performed By: #### 5 616, , #### [facility] of [place] [address] [address] Mate: Heraclio Miller MD Urea nitrogen [Mass/Vol] 11 mg/dL Normal 7-25 [facility] Comment on above: Performed By: #### 5 616, , #### [facility] [address], [address] [place] [address] [address]Rd Mate: Heraclio Miller MD IRON, TIBC AND FERRITIN [facility] 09-21-2021 % SATURATION 10 % (calc) Low 16-45 [facility] Comment on above: Order Comment: FASTI NG:YES FASTING: YES Performed By: #### 5 616, 70614, 13760 #### [facility] of [place] [address] [address] Mate: Heraclio Miller MD Ferritin [Mass/Vol] 11 ng/mL Low 16-232 [facility] Comment on above: Order Comment: FASTI NG:YES FASTING: YES Performed By: #### 5 616, 15544, 47097 #### [facility] of [place] [address] [address] Mate: Heraclio Miller MD IRON BINDING CAPACITY 542 mcg/dL (calc) High 250-450 [facility] Comment on above: Order Comment: FASTI NG:YES FASTING: YES Performed By: #### 5 616, 59899, 50330 #### [facility] [address], [address] [place] [address] [address]Rd Mate: Heraclio Miller MD IRON, TOTAL 54 mcg/dL Normal 45-160 [facility] Comment on above: Order Comment: FASTI NG:YES FASTING: YES Performed By: #### 5 616, 30488, 13791 #### [facility] [address], [address] [place] [address] [address]Rd Mate: Heraclio Miller MD TSH W/REFLEX TO FT4on 2021 TSH W/REFLEX TO FT4 3.86 mIU/L Normal [facility] Comment on above: Result Comment: Refe rence Range > or = 20 Years 0.40-4.50 Ranges First trimester 0.26-2.66 Second trimester 0.55-2.73 Third trimester 0.43-2.91 Performed By: #### 5 616, 28005, 26043 #### [facility] [address], [address] [place] [address] [address]Rd Mate: Heraclio Miller MD Consent Formson 09-09-2021 Consent Forms [id number]#[address] [place] [address] Coding Summaryon 09-03-2021 Coding Summary HTMLBase 64 BhdinpxqQQm7tKz+PGhlYW Q+NB8CKSBbS70etGVogA4M A6tBQN7TRPKJMPCAMT3JCJ 8muWA0EMjdQ4TnsiFp DehkfTQzKU22MXr0DFJ3pQ loCOykxW8rhPEdP6y2SmNb GS57pS40EJrgHMGyLaA8Pi ZpbjsgbWFy E9vvDoUwvUGjZpw+PHRhYm xlIHdpZHRoPScxMDAlJyBz xCcvZL0kOr3iTPUcDPIjmN xhcHNlOiBj g8lzPWGxSYinVY3dfKdcN0 UkkBF2MHEgf6l1Sg01aLW+ WSSrUVC0uOjwWSyre373Rl Ili7kwPGH6 mHHhXQmxUQV3B48uy3H1OJ YgOTFrYCL6eZY9tH7doPsk iqgrY3UrhDDmRcS7YNL9yI PduD2zqWod flkjqP9oGwf+J33UVY6YCK CKDC8IOuo5T7OaQzgcmRK+ XW34LEKmBD57uIDmcTHgv0 dicPz9FxSd EAAfVIU9oBtsNMgch0AeWN RjO56xnDQfy1H3XSGmwNck nDZgWeAjqTQ7rO0jKXmruv kss2dfhegq Nhaij3omnc14oP25C27aXG seYHKvUGT6VBNdSFFmzUfl gw6dhP8vCp4+PWflq0zyw5 mlzIf1UyQy MWEklrCajZtaWCL8h4IhLv 06J0KrcLkvb6CtZta6qx89 iOItg7Z3uLL0KUhiXZSmfY 7lDDjnZfJ9 ZWJyAtRhvL25oZZuMXtxFw 9snRvciHihBY3xGRLprjzv RMQidU1hTIOelHWqqJmvQZ 4wNTBpbjtm u414PeMnEID6BGRqtPBhJ8 SbmI3cDvJdRJLfKPNxC6Zl pVRhUHtcI661IVppPnG7YW VwcoIvQ9Mx SMImnQhzDjV2i0L4Eo2Em4 XsesusKED4GJnvXNA1AjB7 MlNrBlP0L2FuDpy3HRSkfE ysKW5aQ0Pp VHXxyqarzlnolXK8AMEoRY IddC69zKYiDLomOy5rs4I5 v407MBAvQHZbaT11Vx8hwR ogMTBwdCBU kK7tmfwko9knsndsCkOoCR TbKCp2WZe6BEEcrCnrVuWx VEA5JmF4ANG1uHMooN4ogI mrqgqemX1t Oyc+A65rpN6gTJO3MHR6oe djJHOxndLuJE60VJ88Y3Xr PjwvdGFibGU+PGRpdiBzdH slPV2tJpTo f9qyl7JqWKgxD6CiWEZsSO ldAmm3AWXsACN2wRO7aB2o MJXzGLvdy9S4vOJ3Y8Kohs Cvmk0pq8pb SUSuNRpjB01mdQZba6Q3GJ TyhAF0MWAvzKxdReTwuW79 Oyc+TNNdeSvmj6HdTwpyy4 crz0tehQf8 RoGfONFegxUkgFgiSFF8d7 WrUb51R94qJFyrCLAyONLt XSClCUIikMwtph2vhK2tFt 8+PGNvbCB3 bPS0vL1yTKZmSaQ6CObhS7 80HbMybPInJyzyz0sgq0he vAl6LyVwGQAxcbGusXyyQU X8d8AlBy12 U61pKMepXWYjZGOaBWEjUV RigBenze9zwP0xFj5+PC9j l5wsfe68dQ21lDW+PHRkIH K4qEuoDOio MHGcrN8iUMjjIdT5LFPcEp ZdzB79nXMdZQazYk7dtCqk kFvlBA5jDSMogdnxw298Gs Qsd0hsLRSj kVDgASetHBF2Q45xp5M1BG XaJNHcFBE8iOP1xM5etGoy bjogbGVmdDsgdmVydGljYW qeLNdtC572 IHRvcDsnPlBhdGllbnQgTm XyNAa7N5CrCxi1HBLrpApl LJ2lmEAfELozHi8agQlqdX wjNZ0kCGEy cxxub258PwSxs7tmOZQmuV KtQCboQSS0Z34cl7P0ZBRw GVXtBIC7fTP8iP2ulDqlft ogbGVmdDsg tnBnrCvgKBsdTMqlR908LI RvcDsnPkJpcnRoIERhdGU6 AM88TD20sFHim8V3cOV7H0 BhZGRpbmct uwhgjKL5AHShEKMtfN36Tr 4beKxoAw3dWQWrTIO9JTHw aUKfC6WnkD7bDxAoYLWkOD XwH4BohJJx POreL877PDzeOcD0XPQdxb LeK4MrRJGmuTpmItL8r2P4 Pl0XM3V0LK50VB40fDJlo9 R7sPD1W2Ob GPEocvurpayvyBY2CORtJQ JytC41Hm5aaXnwPn9iISAm CFT4GXPkbGZfM4FjvF3lNm AjMDAwMDAw G8HlvZKlJUgqH764CXwxXl S0NOZjadWvL4ZqJBEnmRbc WuY9i9T7Za8PUEx0HQ87HN 60eOMpr1N3 nJW0I1WwOQPjipofwgpsiA M2RPCbBSOqgP32Hn3kbLeb Bg2nYQAjDCN9SXVnjYFfN9 SayO5hStIz CFHbXVUwO1VpbTSbILglI2 58SGxdLbK7UTQwfdZmK3Be OFPkdFuzFhS7a1E7Oo2ITM NtVC86YNW8 dMJ8GK06HV81D2UrSjhpeB FibGU+PHRhYmxlIHdpZHRo STipKYJkYpDnzWlnCN7bVt 9yZGVyLWNv vTojuBAyGkMyy7wkXGLwLE heGV6jfMhtU4GokNS9NFHw g2s4Fe03A26bP6AwrVY+PG QckTS4eXP5 pY2oCnRyBeY0LXewA069Ko BtxXFkFkemq1kyx4jfoNn7 QjH7JEGkarIqtYzmKLW4a8 HtMd87U25x IHdpZHRoPSIxNSUiIHZhbG czdu5llM9dOh5+PGNvbCB3 yPJ9sW6vIbAaRsC4AVdiR8 49InRvcCIv Tjuxg7fjp3araPf0UfCqZZ AfjnPnnTfvOVF6d3LjOb54 I5QwuXhee2TzLkn0nf35iR Ewe7X3jXJ8 H2HzRSAtqbqugMJnzUdbAZ 6iFXJljmdmIXWkmY7wCMMw M1z3HaJtWlM5HExfX6Lkpm E3LTKztJOh KAwtYLX0T38sf3C2JHXpDY XdUEE4dIG9tG9rdDidqjeh bGVmdDsgdmVydGljYWwtYW vuO212NVYz zOnnVBAtxS2jRTZgsJVyoO edDJ0jQRWhhdlmBhlLUN1B TiwgRUxJWkFCRVRIIEFOTj wvdGQ+PHRk KAZ4bKwtEWmyQRXzkJ5rOZ YoV0s3GzCaKwK2RQluI0Rp EYJidhiiOe29qH0mMpUdTu V1LTxxU8Ta bkO6WZPhrUSoLXebKQX3V6 7wk3R0VRWzBEWzVJO9jKI6 sH8whItmmdngaYNafVvqbw VydGljYWwt YTuaR377WWKllTkvPuF9Kq AxEzR3PcW9Q5EpHvs1OPFr vVugWT3szTItDJnkYs2anT mkkTulNG8i ERXmmrekCMWokE6gCWHqcE UnfMtsSS7dVARxcrvao122 TeEyGVM3IHPcoVFyA4WfnA 9yOiAjMDAw KJUgL7JpiZSgWOpjY887BA qjMwD5IPNxjtThN2VhYTBl vNjyCtY1k4V6Qm60JLXLLG FyczwvdGQ+ GNAhOYT2vLpzREmjSLZanK 3zWCMsE2l2KsGrRnO6XUxo R6OrIGPfqhjbDo88fE3nPy AhDiO1YOyo O2SljoP5VTJcdPWmLTmoEJ J5R00ra5P9AXZbZYQzHYY6 xYM3xT4skXhgeoomhINvnW sgdmVydGlj GMmxHUjuO953FTHsdItyBh ZFTUFMRTwvdGQ+PHRkIHN0 rPbdDEqgBCPspO0sNOWrN2 h2FiKjAuK9 IOnlA6EwUCTqvenpEi44tR 9cAdCxElT8DVabO9RnbgO8 BZQkrGFuBOvdZSE5N89ie0 W9DNIyKXLh MKW0fAR8oX1zwMpoiyslzM VmdDsgdmVydGljYWwtYWxp Q135JRBvtVkrDhIgmSWLbG RhWTI4WL54 AK43L3HrOukvxELxlPH+PH RhYmxlIHdpZHRoPScxMDAl AsVogVrhDW3tXj6qMAOdAP NvbGxhcHNl SvNvf0onQJLyNPriBO8wnY ybE2QdpZO3RZSsx7b9Or78 Q09yC1JdnWA+JPAloVJ4jV F8sE8kAdVe PpB8YWhiJ846GyGohIAqLz unr2lro4gegLk1JwKpQPYx xxMcjDoxBIF5t6YmTj94I5 9sIHdpZHRo RIRsIXZaCEUrzLroxu9elN 9wIi8+QKYwdOB0hCR2fE1v GyBqLiI4NWrdX079YbPwcZ LsNgumR31r A4IxuEW+DLMzJjq7IRDdhJ fnMI6uxHHeQDvsMl9yOFE4 OqAwUyKkVJraI3WfQBGscg ctcmlnaHQ6 RTMcVIFasQ21Gm3qdGdyCz 6gXNBfQHQ0XIXqwROcZ1Hz cL4kEkFsIANmWIIuP7EhiS IrOQtzF001 DGasTeT3FSDenlAjZ7CdRH MqhShfCjH0d6W9Ya1KyViu tHIvWY8yXvTvVCc4O4XqPe n8IXQwbSfb KB7jzOLlQWxbLi7rgVtneZ ttIZ1gPABfxxrdr434PiTb j4cmZCCojWYrTNgcDYB6J3 7yc3R1XRSa WBKdPWE1bHZ7rO3nkDqdsm ogbGVmdDsgdmVydGljYWwt OImhU659HAOvvSorShENYw z3K0WjNos1 ZHLncNyxEU8buUWuCSogBa 1vrRawjKhdXH2fBXAlbowl h449XeTzu8wjFOUioHBjGL ufFUV8F37v h3Z0XPBvXWNqFHO0uZA9nK 1hbGlnbjogbGVmdDsgdmVy mSkuOXlhTYotJ343TPJrkG yoZd0FZom4 D9JcDlo9XHOseXvvOF5oyT JpMCegDn4ghPehoEozMD5g XHKolfqev075RxPyx3xtYU EwcHQgVGlt XPI5P40ry0G3BYSsYYYpKV D1hFL5dE0mqZahuscsgIJj dDsgdmVydGljYWwtYWxpZ2 46IHRvcDsn PlBheWVyOjwvdGQ+PC90cj 44E9PyGvcgRuq6UJZyXRT2 hKZ4hN4yLSYmGSnwi3R7oM L3L9SmzgWp ci1 (more content not included)... [facility] Coding Queryon 08-27-2021 Coding Query Documentation Requir ed Dr Oglesby, Please review your OP Note for this patient. It appears as though you didn't dictate the meniscectomy for the lateral compartment. You DID dictate for the medial area but in the 2nd paragraph, last sentence, it states: In the lateral compartment there was a small undersurface ear of the. Please complete the Op Note by addendum. Thanks! Maddi Serrano [Electronically Signed on: 08/30/2021 13:41 EDT] Hua Oglesby DO [Verified on: 08/30/2021 13:41 EDT] Hua Oglesby DO [Transcribed on: 08/27/2021 07:54 EDT] [facility] Consent Formson 08-27-2021 Consent Forms [id number]#[id number] [facility] Telemetry Stripson Telemetry Strips [id number]#[id number] [facility] Anesthesia Noteon 08-26-2021 Anesthesia Note Patient: IKE JONES Age: 50 years Sex: FEMALE : 1970 Associated Diagnoses: None Author: Christopher Cadet MD Postoperative Information Anesthetic utilized: General. Assessment Anesthetic outcome No anesthetic complications noted. Plan Transfer/ Discharge: Patient can be discharged from PACU when criteria met. Condition good. [Electronically Signed on: 08/26/2021 14:58 EDT] Christopher Cadet MD [Verified on: 08/26/2021 14:58 EDT] Christopher Cadet MD [facility] Anesthesia Note Patient: IKE JONES MIGUEL Age: 50 years Sex: FEMALE : 1970 Associated Diagnoses: None Author: Christopher Cadet MD Preoperative Information Anesthesia history: Family history. Patient history: No prior anesthesia problems. Review of Systems Constitutional: Negative. Cardiovascular: No Chest Pain. No SOB. Health Status Allergies: Allergic Reactions (All) Moderate Demerol- Facial swelling. Mild Adhesive Bandage- Rash. Current medications: Home Medications (5) Active carvedilol 12.5 mg oral tablet 12.5 mg = 1 tab(s), PO, BID cyclobenzaprine 10 mg oral tablet 10 mg = 1 tab(s), PRN, PO, HS hydroCHLOROthiazide 25 mg oral tablet 25 mg = 1 tab(s), PO, Daily Potassium Chloride (Pbj-Mkwl-Zxx 10) 10 mEq oral tablet, extended release 10 mEq = 1 tab(s), PO, Daily traZODone 50 mg oral tablet 50 mg = 1 tab(s), PO, Once a day (at bedtime) Problem list (past medical history): All Problems Cardiac dysrhythmia / SNOMED CT 7123853873 / Confirmed HTN (hypertension) / SNOMED CT 3648760088 / Confirmed Histories Family History: No family history items have been selected or recorded. Procedure history: Arthroscopy of knee ([id number]) on 01/21/2021 at 50 Years. Comments: 01/21/2021 8:41 Carolina Pickering RN right Abdominal hysterectomy ([id number]). Arthroscopy of knee ([id number]). Lipoma ([id number]). Comments: 01/04/2021 11:19 Milana Melton RN excision History of tonsillectomy (4979489665). ACL - Anterior cruciate ligament rupture ([id number]). Comments: 08/12/2021 13:15 Carolina Heller RN repair with spring Social History Electronic Cigarette/Vaping Assessment Electronic Cigarette Use: Never. Electronic Cigarette Use: Never. Alcohol Assessment Use: Current. Beer, 1-2 times per week Use: Current. Beer, 1-2 times per week Tobacco Assessment Never tobacco user Tobacco Use:. Never (less than 100 in lifetime) Tobacco Use:. Substance Abuse Assessment Substance use: Past. Substance use: Past. . Social & Psychosocial Habits Alcohol 01/04/2021 Alcohol Use: Current Type: Beer Frequency: 1-2 times per week 08/12/2021 Alcohol Use: Current Type: Beer Frequency: 1-2 times per week Substance Abuse 01/04/2021 Substance use: Past 08/12/2021 Substance use: Past Tobacco 01/04/2021 Smoking tobacco use: Never (less than 100 in l 08/12/2021 Smoking tobacco use: Never tobacco user Electronic Cigarette/Vaping 01/04/2021 Electronic Cigarette Use: Never 08/12/2021 Electronic Cigarette Use: Never . Physical Examination Pain assessment: Self-reports no pain. General: Alert and oriented. Airway: Mallampati classification: II (soft palate, fauces, uvula visible). Temporomandibular joint mobility: Good. Mouth: Teeth ( Within normal limits ). HENT: Normocephalic. Respiratory: Lungs are clear to auscultation. Cardiovascular: Regular rhythm. Neurologic: Alert, Oriented. Review / Management Laboratory Results Plan [place] [employer]#(ASA ) physical status classification: Class II. Anesthetic Preoperative Plan Anesthesia: General. . Anesthetic plan, risks, benefits, and alternatives discussed with the patient and/or family. Patient verbalized understanding. Informed consent was given. Anesthetic technique: General anesthesia, Patient presented with diastolic HTN; this was also noted on her PST chart. Had a lengthy discussion with her regarding this. 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 Patient has reported no changes and has noted her diastolics have been above 100 for months . We discussed treating her with some labetolol here with the hope of moving forward today with her surgery. We also discussed putting a better residential plan in place regarding her hypertension. Her and her both seemed to express understanding. . [Electronically Signed on: 08/26/2021 13:29 EDT] Christopher Cadet MD [Verified on: 08/26/2021 13:29 EDT] Christopher Cadet MD [facility] Coding Summaryon 08-26-2021 Coding Summary HTMLBase 64 LecexgbaFUr9zFp+PGhlYW Q+LR0LZTUkG32kvBDpfD9W F7pQGE1KFAFULXMYWI0TGV 4obHE2YNrnY4CukdOk FljkrEEmSB53YXr3JKT6nN pjIDqhmF0vkONaB3e7OfTy QF49gS05VXoiDSCpZgE4Zw ZpbjsgbWFy E2bwZfXrpSNxXul+PHRhYm xlIHdpZHRoPScxMDAlJyBz oUchEI9yTd7dSKFrMWCobI xhcHNlOiBj d8hlVKMgBAhbPI3rdNuoB5 LcrTN3JPBzd2o4Lh02iQS+ HPDeEQW3ePwrPFohx834Ne Zdm9sqHWN5 pCYdIGxaDDK3B62ud2A1DN ByUBZtKSR9cPU8lG6mcSqu hmeyT2MjzDAcMxF8GWJ0mZ RccY3hnVtf cmaddS2rFra+T63SHN7BMK XJTL5KUry0H2LbNsmxqGA+ LT21SSBpNS61oOBvxNEnl5 susYl9ShSa MTMnHGA0iNhlESwrm3HoTG UqG13jcPLvv8P7MZPnfQjl qRGgCxCpvHA9aG3bGPuuic nkm8eggghe Fyvae4uiqw73zA01F95aND jdOKBgEDR7RDJbRPTczVnu wm7loR6zEx9+NUcfk5ikv5 atcMq5MnCo RFXyrrCafCksWDA2j9RnMf 97O2DayCbvr3StRfj6bj50 dMOpy4M1vIL3ETzwYJFkfQ 5fVRjtFpP0 OWImWaJbkF94xRMwUDmjQe 0bvQhqpCfmSP4wFADdixhy DUGgkY3jHDOeqLDlqPtfBQ 4wNTBpbjtm s296ZeOaUZI1CPBvcKWfH9 VcwF8eFjTsXLFkHFUwA1Ew gVMlLTegZ780WJneLfB8AS MylrHiK9Tb OXWnkKjbDbK5z0M7Fo7Tj0 VcpxdmOZA9KUvoRPM8AkX2 EkLbMuL2H7XhQzz4JLAeuU nbFM4cZ8Cv ZZSksauphmvxnOK9LJTmGL YabV15qXIvGZqfZh5bg4I7 p723IZVvNGWcwA02Sd2tzH ogMTBwdCBU rE6dhcdju3ckwqosWoLeUT LgWHa2YTj7OFZbuGtdYaUp MWG8OsX6VCZ5qKOqsT6ixV toqhmjcM6t Oyc+F00wpB7jWBS6VPI5jq mkVACdeyAeJL04AA16P6Ng PjwvdGFibGU+PGRpdiBzdH chSY3zAjBl f9tup1QnWHytZ5FyZRAlMA lvUiv6JFTuPRD0yLP7oF4y NYPdGSmbw2Y6xWQ6R4Xbun Oekw3ro3lm AEPwDMzxX75unPStk4U5SK UlcYZ8IMOkkLgdXxPriJ77 Oyc+WIGluYisv1CbNayqo8 gzo0nicDp0 AeBkYOYehdRqfZtpXFH1f0 FhXd46P50wAJfaCHMxKYHu XLLaTZEyoHhxra0zwT8iQm 8+PGNvbCB3 aPM2mG2dFYOoEsJ1INbzG0 76VjSowKIuMgzwe5fap8dq bXe5IsDdMVOaisVpeAkhHS L4j0CvXp98 G94pPBwzDVUpPGSbUWWqRL YmlEnwtk4ziI9nGr3+PC9j b8wbqk57kO40eRM+PHRkIH I3iXwdUOce WNDjyG3bNSguVhJ2IWXkJi YpzE81lJWvANafKn0pbDrp qYqjTN6rEIMrtafvv669On Qvb3giQHCv cKVrADubVZJ1C47es6F2TS PzWKKjMQG9mVP4lE3nwUhg bjogbGVmdDsgdmVydGljYW dsTSpfJ575 IHRvcDsnPlBhdGllbnQgTm KnXWl7U6CuWsi3IQJqiLfz EY0jnWIfCNxwEr2gkHapnR fcVW0aOFLt bbwxy637TtOsy4znUFPxkY XlZBffXBK5M90ii9N5RCYe TTYvOKN8kFG5jP3lcZfjls ogbGVmdDsg gdPvwKrvGUooBIxgC568BA RvcDsnPkJpcnRoIERhdGU6 JH92ER46zUTlu3R1jUS5I5 BhZGRpbmct osvuxLH4WCVtJPDsgB62Na 8ivMsjDr3hZHTtBYJ9IMGg kLDsF8GvgJ9oEjSwUYHyKL KjW2ZtaUSa FUtaL901SRwpLqR3HLUvce QoJ6LbUQQssTiqEiO3b3O1 Nd7ZE4G3ZJ36LS84yIMnj5 R0qZF9U3Px LDKitwtvjpaxnPR7YVPnYV YwgJ31Fi9atElpIk3mHBTp GVO2HHTglJCyM6KjrM1jJi AjMDAwMDAw Z8VkdBYlPWcvA715APomYh A5XRDocaTkJ3CkLQMinGos EbK7x8E7Wz7FHXn3JQ20PH 42jBSra5I5 fLW4Q7XeKQVtzmyyimwruS V8JQDxUGWxcT60Wd0trSbf Nq9zRHZcKZE5CEDdyHMpH5 DojD9pNfAb RCKzPMHhY9GtwCFxLBtsR0 59BFxtDxF4GPAnxcMcY3Ib YZLnxBazVgJ4f5B0Sb1CLZ ZcNS57SGX0 aUA7HI68SQ79O9IhCsrzfQ FibGU+PHRhYmxlIHdpZHRo WUfrMMOqAoTgnPblGJ7pHi 9yZGVyLWNv bEqaaFBbXqWzi3vqBCGiAL vbUE4ggFuxV9RbnQF3XVCs y3q4Yt66E49hI9RxeOM+PG XsnFB6yZT0 gJ5eQnRgCeA2XLnrM081Ob OokYBqTgglo3meh1yqfTz6 TyB9LTBhmrGfhNptWFL7y4 ZfRp63K52k IHdpZHRoPSIxNSUiIHZhbG gqss8yqG5qBu0+PGNvbCB3 sNW3eN6uFlYnTlI5XYayA5 49InRvcCIv Igdhu7eqg4zmjWn2VyAkWJ NcdhUkrLkvJGF8x8EqNr08 F8BkvSlgw3EwMgn5zp46xJ Hgs3O1qMG3 J1MmMVThaphztLSkkIsxDY 5sHIXjeiacMUMgtR4yDCXy M1e0NsLjXvO9QWuvT1Gyxe T5GWVevMYt FYlgYSJ8U00ws7H3ULHgLQ PhVGH0iFG7cU2wnQfcndsh bGVmdDsgdmVydGljYWwtYW oqA782BFEe mVizVRIdxL8nJBKrdIYrkV eaYC6iEWLnggabIlyKAS8X TiwgRUxJWkFCRVRIIEFOTj wvdGQ+PHRk CQA0xBvmHJldYHJbgZ6eQE MbW7d6YtImCtW1RMjtY5Ds MXLtoqpaLq10oM6kUzAdMq I7UMcdW1Ca xcN5CBLylFNpJVnxXGM7A8 6no0L5DLIdAMVnRAZ1mZO3 hF0mvLandleluFQoyTiqxw VydGljYWwt YHljY388MJVteHmeJsW4Dq BiKeD1PyO8H1UoYcc6TSYa fDgrKT2ssPNqTTikSl5jhC jolLefWM5s IBAhzssbOKTnrG0gLXDtcZ HxwRswEK2oJLSzewgsr215 AfYhHCN3PDTtnVDqY8IsqU 9yOiAjMDAw TUZhJ6WtmGKsVHaiS420GX thXjJ0NKMiycLjZ7RtYLWt sZvfPzB7i9S1Mr97WYEBPY FyczwvdGQ+ JURmIEL5qAfaXGuzUWDdsT 3aPXSqH1l4VoFsNyF2YEva M3FeXFFbivhdNc09gR0lZc SnEuF4BHgb T1VxegN9VXUxiZYtPVrvHY U5Q11af0X4GJIiSTWuHTL8 nKW5yZ6otTechwmpcTWstI sgdmVydGlj PLlpISqjT225CTGugAldKy ZFTUFMRTwvdGQ+PHRkIHN0 nEnhLTmvWFIxjD2bLKDyW1 k3CuWbMxG9 GLdpK7UtGVRnhhmgHz21sB 8tLhZbZfN7COlzN7EvfcK5 NKKpjNPmGEshRVC1F86cl6 E9HEVkTAFk SJI2xVW5rV9idUrjfqxluC VmdDsgdmVydGljYWwtYWxp L451KLKqlGxnAh5HAR31FT 57F1ZoZtpu dGFibGU+PHRhYmxlIHdpZH BsXUapHJAjStThjDiwYH5y Tp1sAKAhHPFsaTwvcUIwQh Iee5woSQLz VFpqTY1teJjcW3GpbCB6WI Hwj0o8Wr39M96eD4GzyMH+ YFSsjWX8rRG1tO2xJbCbKq I2CTsmR540 CfLgdUTsRqrkg8hhm1xmtL c6RdLvVTSonnLunOgxBDL8 r2XaBo96B16gRGhfQMFcHA IyMCUiIHZh fQfbcg5nwF3nEz0+PGNvbC W3lCF5lM2hEeHlIkF0SDvg M473SbCvqTXtObpdQ05tI5 JvdXA+PHRy Uht7FPPeeYaoVY1alSImPB iyIg1pFWW2KuDlOrNhYJar U8IoQSPsnesoqtegoHL6HO BcNHXvlV46 Pb1bxOxoDv6yFIGbFHI1XH CkjCMbX6QzpX1zTeOkWDXu GQNxS4XvlUEbYFgsA262RF jaHzM2VDLu kkUeC8CbFQLpmEhmThK6j9 F3Gi5DfHjuoDNtCB3xKkFq JPi4Z0EoUod4QGRjnQxdQL 0ncGFkZGlu Pu7gnWhjhMcuMX1wFUEgwp zqm732VgKmp8cnRKBirMWb SHwmNSA8W34rd9U8PIByIO KyNOD5yMV6 mA9ciNsjnvnjhQQleAcpra PglQrjBNuaAAtzJ206ZBJb cHudEiYEOof0F4EzYng0QB NftUquNS1d nLZiIAysHs4ibUfwwJnlQU 9lBODzzeste236CuOez9ge AHRuvUBtOUngNDS1O52mf1 Q3PDSxZOAs QAH1pOX3dE8fjLqydafuuY VmdDsgdmVydGljYWwtYWxp Z601BIDdaSkpQl9YLcn8U9 UlOrj4XQJi xFpeCJ2dfLAlDOjsVa3oiP buzAblGF8vXXTdtldmt871 NcAeo8zlJYRrlCZsPWuaVZ N9H09my9Y8 PDCwSOOkXZH9nUR1oZ7nsK lnbjogbGVmdDsgdmVydGlj ACllCHjzO783VZXrcJdpBq BheWVyOjwv dGQ+SM96vo21O1MhPdnxTu s0ZYIdVME9tIM4gY1vFZYv OPejg4C7zZO3O5CpedZbtl 3mt6goJPHn ZTo (more content not included)... Normal [facility] Inpatient Patient Summaryon 08-26-2021 Inpatient Patient Summary [place] [id number] Patient Discharge Instructions Name: IKE JONES : 1970 Patient Address: [address] [place] [address] Primary Care Provider: Name: RANDY CALLE After you are discharged if you find you have any questions, please, call [phone] ext [phone] to speak to a nurse. Discharge Diagnosis: Internal derangement of left knee Prescription Information: If you have been given a prescription for narcotics, seek immediate medical attention if you have any difficulty breathing or any sudden status changes such as confusion and sleepiness. If you or anyone you know is experiencing suicidal thoughts, mental health, alcohol and/or drug addiction problems; contact the [facility] 22/09 Crisis Hotline -Text 4HQTL mb [phone]. If you received any narcotics, sedation, or any other medication that causes drowsiness for the next 24 hours, unless otherwise directed: ? Do not drive a car. ? Do not operate machinery such as power tools, lawn mowers, drills, sewing machines, or stoves ? Avoid alcoholic beverages and drugs for allergies, nerves, or sleep ? Do not make important personal or business decisions or sign any legal documents [facility] would like to thank you for allowing us to assist you with your healthcare needs. The following includes patient education materials and information regarding your injury/illness. IKE JONES has been given the following list of follow-up instructions, prescriptions, and patient education materials: Follow-up Instructions Medications During the course of your visit, your medication list was updated with the most current information. The details of those changes are reflected below: Medications to Continue That Have Not Changed Other Medications acetaminophen-hydrocod one (!-Vassar 5 mg-325 mg oral tablet) 1 tab(s) Oral Every 6 hours as needed as needed for pain. carvedilol (carvedilol 12.5 mg oral tablet) 1 tab(s) Oral 2 times a day. cyclobenzaprine (cyclobenzaprine 10 mg oral tablet) 1 tab(s) Oral At bedtime as needed for spasm. hydroCHLOROthiazide (hydroCHLOROthiazide 25 mg oral tablet) 1 tab(s) Oral every day. potassium chloride (Potassium Chloride (Agb-Cnmx-Ycp 10) 10 mEq oral tablet, extended release) 1 tab(s) Oral every day. traZODone (traZODone 50 mg oral tablet) 1 tab(s) Oral once a day (at bedtime). It is important to always keep an active list of medications available so that you can share with other providers and manage your medications appropriately. As an additional courtesy, we are also providing you with your final active medications list that you can keep with you. acetaminophen-hydrocod one (!-Vassar 5 mg-325 mg oral tablet) 1 tab(s) Oral Every 6 hours as needed as needed for pain., Home script Dr Oglesby 08-26-2021 carvedilol (carvedilol 12.5 mg oral tablet) 1 tab(s) Oral 2 times a day. cyclobenzaprine (cyclobenzaprine 10 mg oral tablet) 1 tab(s) Oral At bedtime as needed for spasm. hydroCHLOROthiazide (hydroCHLOROthiazide 25 mg oral tablet) 1 tab(s) Oral every day. potassium chloride (Potassium Chloride (Sbp-Erdx-Bld 10) 10 mEq oral tablet, extended release) 1 tab(s) Oral every day. traZODone (traZODone 50 mg oral tablet) 1 tab(s) Oral once a day (at bedtime). Take only the medications listed above. Contact your doctor prior to taking any medications not on this list. Diet & Activity Patient Activity Level: Patient Diet: Regular Patient Activity Restrictions: Comment: Patient education materials, if any, will display below POST OPERATIVE KNEE ARTHROSCOPY DISCHARGE INSTUCTIONS SURGEONS WRITTEN INSTRUCTIONS: Ice and elevate operative knee as needed to reduce pain and swelling for the next 48 hours Range of motion to the operative knee/ankle pumps 10 times/hour Bear weight to tolerance on operative leg Change your dressing in 24 hours, you may then shower. Rewrap the knee with riri wrap Take Aspirin 325mg 2x/day to prevent blood clots (DVT) Take pain medication as prescribed Follow up as scheduled WHAT YOU SHOULD KNOW AFTER YOUR OPERARTION: If you need pain pills, start before pain becomes intense. Pain pills are frequently less upsetting to your stomach if you take them with food such as crackers or bread. If you have excessive or persistent pain, swelling, bleeding, nausea, vomiting or any other problems, you should first call your surgeon for advice. If you are unable to contact your surgeon, seek help from the emergency room. FOR THE PREVENTION OF DVT AFTER LOWER EXTREMITY SURGERY What is a DVT? There is always the risk of DVT after lower extremity surgery. DVT, or deep vein thrombosis, is a blood clot in a major vein that may partially or completely block the flow of blood. The clot occurs in the legs or pelvis, in areas where blood flow is (more content not included)... Normal [facility] MAGR Intraoperative Recordon 08-26-2021 MAGR Intraoperative Record MAGR Intra-Op Record Summary Primary Physician: Hua Oglesby DO Finalized Date/Time: 08/26/21 15:08:30 Pt. Name: IKE JONES MIGUEL RosenO.B./Sex: 1970 FEMALE Med Rec #: [id number] Physician: Hua Oglesby DO Financial #: [id number] Pt. Type: D Room/Bed: / Admit/Disch: 08/26/21 11:01:00 - Institution: Case Times MAGR Entry 1 Patient In Room Time 08/26/21 14:02:00 Out Room Time 08/26/21 14:56:00 Anesthesia Start Time 08/26/21 14:02:00 Stop Time 08/26/21 14:56:00 Surgery Start Time 08/26/21 14:27:00 Stop Time 08/26/21 14:47:00 Last Modified By: Jeannine Eid RN 08/26/21 14:53:59 Case Attendance MAGR Entry 1 Entry 2 Entry 3 Case Attendee Hua Oglesby William MD Baumer, Jeannine Kraus DO Role Performed Surgeon - Primary Anesthesiologist of Otc Clerk Record Time In 08/26/21 14:02:00 08/26/21 14:02:00 08/26/21 14:02:00 Time Out 08/26/21 14:56:00 08/26/21 14:56:00 08/26/21 14:56:00 Procedure Arthroscopy Knee(Left) Arthroscopy Knee(Left) Arthroscopy Knee(Left) Last Modified By: Jeannine Eid RN, Erica RN Baumer, Erica RN 08/26/21 14:54:01 08/26/21 14:54:01 08/26/21 14:54:01 Entry 4 Entry 5 Entry 6 Case Attendee Dorothy Archer RN WORKDAY MANAGER, Laxmi Navarrete WORKDAY MANAGER, Shanique CSFA Role Performed Otc Clerk Branch Assistant Scrub Personnel Time In 08/26/21 14:02:00 08/26/21 14:02:00 08/26/21 14:02:00 Time Out 08/26/21 14:56:00 08/26/21 14:56:00 08/26/21 14:56:00 Procedure Arthroscopy Knee(Left) Arthroscopy Knee(Left) Arthroscopy Knee(Left) Last Modified By: Jeannine Eid RN, Erica RN Baumer, Erica RN 08/26/21 14:54:01 08/26/21 14:54:01 08/26/21 14:54:01 Surgical Procedures MAGR Pre-Care Text: A.20 Verifies operative procedure, surgical site, and laterality Im.150 Develops individualized plan of care Entry 1 Procedure Arthroscopy Knee Primary Procedure Yes Primary Surgeon Hua Oglesby Left Efra GALLEGOS Surgeon Comment LEFT KNEE ARTHROSCOPY, Start 08/26/21 14:27:00 MEDIAL AND LATERAL MENISCECTOMY Stop 08/26/21 14:47:00 Anesthesia Type General Surgical Service Orthopedics Wound Class Clean Technique Details Closure Technique Primary Entire procedure No was performed via laparoscope or robotic assistance Last Modified By: Jeannine Eid RN 08/26/21 14:51:16 Post-Care Text: O.730 The patient's care is consistent with the individualized perioperative plan of care General Case Data MAGR Pre-Care Text: A.350.1 Classifies surgical wound Entry 1 Case Information OR MAGR OR 01 Case Level Level 4 Wound Class Clean Specialty Orthopedics ASA Class 2 Diagnosis Preop Diagnosis INTERNAL DERRANGEMENT, Postop Same As Preop Yes LEFT KNEE Postop Diagnosis INTERNAL DERRANGEMENT, LEFT KNEE Blunt or No Is the procedure No penetrating injury considered occured prior to Emergent/Urgent? the start of the procedure: Last Modified By: Jeannine Eid RN 08/26/21 14:31:09 Post-Care Text: O.760 Patient receives consistent and comparable care regardless of the setting Time Out MAGR Entry 1 Time out date/time 08/26/21 14:26:00 All team members Yes have introduced themselves by name and role Surgeon, Yes Surgeon reviews Yes anesthesia, nurse critical or confirm patient, unexpected steps, site, procedure operative duration, anticipated blood loss Anesthesia team Yes Nursing team Yes reviews any reviews sterility patient-specific (including concerns indicator results) and equipment issues/concerns Antibiotic Antibiotic Yes Administration Time 14:00 prophylaxis given within the last 60 minutes Is essential N/A imaging displayed? Last Modified By: Jeannine Eid RN 08/26/21 14:32:27 Patient Positioning MAGR Pre-Care Text: A.280 Identifies baseline musculoskeletal status Im.40 Positions the patient Im.80 Applies safety devices Entry 1 Procedure Arthroscopy Knee(Left) Body Position Supine Left Arm Position Extended on padded arm Right Arm Position Extended on padded arm board board Left Leg Position Other/see comments Right Leg Position Other/see comments Feet Uncrossed? Yes Press Points Checked Yes Additional Operative leg in Positioning Device Safety Strap, Arm Information arthroscopic knee Boards, Leg King king with padded insert, non operative leg supported with a thick pad dangling at the end of the bed. Outcome Met (O.80) Yes Last Modified By: Jeannine Eid RN 08/26/21 14:32:41 Post-Care Text: E.290 Evaluates musculoskeletal status O.80 Patient is free from signs and symptoms of injury related to positioning Skin Prep MAGR Pre-Care Text: A.30 Verifies allergies Im.270 Performs skin preparation Im.270.1 Implements protective measures to prevent skin and tissue injury due to chemical sources Entry 1 Skin Prep Syntegrity Prep Agents (Im.270) Chlorhexidine Gluconate Prep By Jeannine Eid (more content not included)... [facility] MAGR PACU Recordon MAGR PACU Record MAGR PACU Record Summary Primary Physician: Hua Oglesby DO Finalized Date/Time: 08/26/21 15:37:09 Pt. Name: IKE JONES/Sex: 1970 FEMALE Med Rec #: [id number] Physician: Hua Oglesby DO Financial #: [id number] Pt. Type: D Room/Bed: / Admit/Disch: 08/26/21 11:01:00 - Institution: PACU Case Times MAGR Entry 1 In PACU I 08/26/21 14:56:00 Discharge from PACU 08/26/21 15:30:00 I Last Modified By: Elvira Navarro RN 08/26/21 15:37:04 Finalized By: Elvira Navarro RN Document Signatures Signed By: Elvira Navarro RN 08/26/21 15:37 [facility] MAGR Postoperative Recordon 08-26-2021 MAGR Postoperative Record MAGR Phase II Record Summary Primary Physician: Hua Oglesby DO Finalized Date/Time: 08/26/21 16:25:07 Pt. Name: IKE JONES/Sex: 1970 FEMALE Med Rec #: [id number] Physician: Hua Oglesby DO Financial #: [id number] Pt. Type: D Room/Bed: / Admit/Disch: 08/26/21 11:01:00 - Institution: Phase II Case Times MAGR Pre-Care Text: Patient is free from s/s of injury. Patient remains free from compromised physical state related to surgery or anesthesia. Patient comfort maintained. Patient/family verbalize understanding of discharge instructions. Entry 1 In PACU II 08/26/21 15:32:00 Discharge from PACU 08/26/21 16:20:00 II Last Modified By: Elvira Navarro RN 08/26/21 16:24:59 Post-Care Text: The patient remains free from s/s of injury. Patient's vital signs stable, circulation maintained, return to preop mental and physical status, opsite/dressing intact, minimal or absent nausea and vomiting, tolerates po intake. Patient verbalizes adequate pain control. Patient/family express understanding of discharge instructions. Finalized By: Elvira Navarro RN Document Signatures Signed By: Elvira Navarro RN 08/26/21 16:25 [facility] 08-26-[facility]21 [facility] Preoperative Record [facility] Pre-Op Record Summary Primary Physician: Hua Oglesby DO Finalized Date/Time: 08/26/21 15:18:23 Pt. Name: IKE JONES MIGUEL /Sex: 1970 FEMALE Med Rec #: [id number] Physician: Hua Oglesby DO Financial #: [id number] Pt. Type: D Room/Bed: / Admit/Disch: 08/26/21 11:01:00 - Institution: Pre-Op Case Times MAGR Pre-Care Text: Patient will be optimally prepared for surgery. Patient is free from s/s of injury. Provide information to patient/family related to plan of care. Verify patient allergies. Confirm identity and verify consent before the operative or invasive procedure. Entry 1 Patient Arrival Time 08/26/21 11:31:00 Preop Departure 08/26/21 14:00:00 Last Modified By: Elvira Navarro RN 08/26/21 15:18:20 Post-Care Text: Patient is prepared mentally and physically and is ready for surgery. The patient remains free from s/s of injury. Patient/family express understanding of plan of care and participate in decisions affecting his or her perioperrative plan of care. Allergies documented appropriately. Patient identifiers and consent correct. General Comments: Pt arrives per amb. Pt denies any CP, SOB, Hx of S./S of flu, or sleep apnea. Disch instructions reviewed with pt and incl anesth restrictions-verbalize d understanding. Finalized By: Elvira Navarro RN Document Signatures Signed By: Elvira Navarro RN 08/26/21 15:18 [facility] Operative Report - Surgeon/P aster 08-26-2021 Operative Report - Surgeon/Physician Preoperative diagnosis: Internal derangement left knee Postoperative diagnosis: Tear medial meniscus left knee, tear lateral meniscus left knee Procedure: Arthroscopic partial medial lateral meniscectomies left knee Surgeon: Max Oglesby D.O. Anesthesia: General Indications for surgery: Ongoing pain findings consistent with meniscus pathology and MRI findings consistent with the same Estimated blood loss: Scant Complications: No complications Findings: Complex tear of the posterior horn the medial meniscus. Small undersurface tear of the anterior horn of the lateral meniscus. 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 An inferior lateral portal was established to a pre-existing scar and then under direct visualization a medial portal was established. In the patellofemoral joint there was exposed bone on the undersurface the patella with arthritic changes the femoral trochlea had thinning of the articular cartilage. The medial compartment there was a complex tear of the posterior horn the medial meniscus there were erosive changes and areas of exposed bone on the medial femoral condyle utilizing meniscal biter and a resector a partial medial meniscectomy was performed taking unstable pieces of cartilage back to a stable base. In the notch the cruciate was intact there was a small osteophyte on the spine of the tibia which was fixed in place. In the lateral compartment there was a small undersurface tear of the. The articular cartilage was intact. I revisited each compartment the joint was irrigated and evacuated and the portals were closed with nylon suture. Sterile dressings were applied. [Electronically Signed on: 08/26/2021 14:45 EDT] Hua Oglesby DO [Verified on: 08/26/2021 14:45 EDT] Reny, Hua Efra DO Please note the addendum to the second Under procedure. Following the sentence in the lateral compartment there was a small undersurface tear of the this should continue as: lateral meniscus. Utilizing a meniscal biter and a resector the undersurface tear was resected and a partial lateral meniscectomy was performed. I interrogated the remaining portion of the lateral meniscus and there was no additional tears. [Electronically Signed on: 08/30/2021 13:39 EDT] Hua Oglesby DO [facility] Patient Handouton 08-26-2021 Patient Handout POST OPERATIVE KNEE ARTHROSCOPY DISCHARGE INSTUCTIONS SURGEONS WRITTEN INSTRUCTIONS: Ice and elevate operative knee as needed to reduce pain and swelling for the next 48 hours Range of motion to the operative knee/ankle pumps 10 times/hour Bear weight to tolerance on operative leg Change your dressing in 24 hours, you may then shower. Rewrap the knee with riri wrap Take Aspirin 325mg 2x/day to prevent blood clots (DVT) Take pain medication as prescribed Follow up as scheduled WHAT YOU SHOULD KNOW AFTER YOUR OPERARTION: If you need pain pills, start before pain becomes intense. Pain pills are frequently less upsetting to your stomach if you take them with food such as crackers or bread. If you have excessive or persistent pain, swelling, bleeding, nausea, vomiting or any other problems, you should first call your surgeon for advice. If you are unable to contact your surgeon, seek help from the emergency room. FOR THE PREVENTION OF DVT AFTER LOWER EXTREMITY SURGERY What is a DVT? There is always the risk of DVT after lower extremity surgery. DVT, or deep vein thrombosis, is a blood clot in a major vein that may partially or completely block the flow of blood. The clot occurs in the legs or pelvis, in areas where blood flow is slow, or in an injured blood vessel. DVT can be life-threatening should pieces of the clot break away and travel to the lungs. This is called pulmonary embolism What are the symptoms of DVT? The area affected by the blood clot may become swollen and painful, and possibly turn red as the normal flow of blood is blocked. You may also develop edema, which is the build up of fluid in the skin tissues surrounding the clot. If the clot is somewhere other than your leg, there may be no physical signs of DVT. If the clot breaks away and travels to your lungs, you may experience shortness of breath and chest pain. If this occurs you should call your doctor immediately or go to the emergency room. How can I prevent DVT? You should keep active. Moving the ankle and foot and bending the knee as tolerated when you are in bed and walking as tolerated. Take medication, especially the Aspirin, as prescribed by your doctor. What should I do if I think I have a DVT? You should call your doctor or go to the emergency room any time you have a sudden and unusual shortness of breath that is not related to exercise, exertion or anxiety. If you have swelling with redness and pain in your leg, you should call your doctor immediately. If there is concern then a test called ?Venous Doppler? can be done to rule of a DVT. [facility] Progress Note - Nurseon 08-01 Progress Note - Nurse Pre-op call done, instructed to arrive @ 1100 on 08-26-21, NPO after midnight, and need for ride to and from hospital-verbalized understanding. [Electronically Signed on: 08/23/2021 13:36 EDT] Carolina Painter RN [Verified on: 08/23/2021 13:36 EDT] Carolina Painter RN [facility] 2019 Novel Coronavirus (CoVI D-19), KYLE LCon 08-22-2021 SARS-CoV-2 (COVID-19) RNA KYLE+probe Ql (Unsp spec) Not detected Invalid Interpretation Code Not Detected [facility] Comment on above: Order Comment: [id number] [facility]# [phone] Result Comment: This nucleic acid amplification test was developed and its performance characteristics determined by [employer]. Nucleic acid amplification tests include RT- PCR and TMA. This test has not been FDA cleared or approved. This test has been authorized by FDA under an Emergency Use Authorization (EUA). This test is only authorized for the duration of time the declaration that circumstances exist justifying the authorization of the emergency use of in vitro diagnostic tests for detection of SARS-CoV-2 virus and/or diagnosis of COVID-19 infection under section 564(b)(1) of the Act, 21 U.S.C. 360bbb-3(b) (1), unless the authorization is terminated or revoked sooner. When diagnostic testing is negative, the possibility of a false negative result should be considered in the context of a patient's recent exposures and the presence of clinical signs and symptoms consistent with COVID-19. An individual without symptoms of COVID-19 and who is not shedding SARS-CoV-2 virus would expect to have a negative (not detected) result in this assay. Performed At: [address] [id number] José Manuel Chery PhD Ph:[phone] Performed By: #### 6 [id number] ####[facility] [place] [facility] (DEFAULT)[address] [place] [address] Coding Summary 08-15-2021 [facility] HzoifbfuKNs9zYo+PGhlYW Q+BH7AZAEwU80wtSVyoE8H M1tSUC6KZOAGHCPPJF5VQI 3lzVH9KZufW6ZgmcVd CduulQDgYN05WEc1YVJ6gM usHOelmC5iaDRdG5q0PpHi II75fA92JWmwKMAeBkH1Wk ZpbjsgbWFy T7kbIxAevPMcWtw+PHRhYm xlIHdpZHRoPScxMDAlJyBz uBgdNE6yKb3rGHFnVTTveC xhcHNlOiBj f9kmUUWvAKqzEK3mzNkbM1 QsoNM3KBLbf4w7Mm36oCS+ QWClXOJ1wJcdWWzlw705Qg Aqv6onVVT0 sEAuYOhpSMC4M96qj6P6WY TsTMUeRKI5kYM4gZ5utBpg vgxeU5NdrSEaAwP7JSK2qE AloT7xbRas nrqooN7oEmm+O49ADZ2CCK KZNY3OKln0P6WeBsahwKH+ DU66PSXyJH82fGXwnBGox9 ywqRv0AnPc XIDyRMD1tKuvEAatu8WlHA NwC43ouOMpr5Z0LQFijNiv qYScRnUgsGH7tD0bAHricy onl3fjheuf Ndsrd1gucp22rS68R23fAF smSZOgHCY3HUOdAWCwgSoy pp0dfV1zWm5+XBcoy2oze6 hynHh2EcJq SAEctcIizQstWJR2r0VmFq 91E3VmyLarh4AgYye3am34 bKAnu4Z9rNF2DZlyZUUveR 0sCJbcWrN8 FBSyJvOxpA17zXVeRCecDe 2puSeunLjgNJ9lEAUzuexb FCNnkQ9wYYInrIOgkLqhAD 4wNTBpbjtm z015DpQjXAF8WZTqaETrW7 GwnJ7lYyBwHGJoSQYoD7Ym dLLkOKvkV542OCoaZeT0ND QwcrBcQ0Em HXNckJvoZmX0w8Y2Zt8Nz0 JeouipLDK9NIeoJIC4BlH3 FbSlXuN3H1WhLeh1QKAwnZ olJO3kB6Sg CTCcqsbqhvoudHZ6KWQqPX ZdpZ35kEAuFHorDs5ij7Y8 i189QTCtOIBqsT39Jx9pvE ogMTBwdCBU iQ6zbthwu0rscxdzKpVhXI YhXWb2KKg7HUPjdNchTlYj NNL7ZhH1QMQ2uIGjgY3lqG yvadchgL8h Oyc+D76tbV1pZVC7VJN2ma fhXOXhbwGoNI66IY19O4Di PjwvdGFibGU+PGRpdiBzdH pjXD9dEuBg v2xuv8VzOIwgV7UgLTHkAJ qbIwz2XLSfEVB0kLP1uK5z VKIcXKptm5R4qKH2X8Gifw Oqsh5kw6gv VNVeHHvoN10tfOIge4Q5UA KiuTW1BSLjbPsbDvDuuF60 Oyc+JOEnyWfoq1XyOyxbp1 ccd7xgyIh4 RwMoUAWnacVheJkrMBD4m7 RkUb73E91mPWgqGPFmFUIl WOZwSFLseErcow2pnN7rNl 8+PGNvbCB3 uWX0eM6hGHMhFwN4KSzlG6 36JuSepDVmCliyn1xvv7ht zZy6OjNnONPzpbUprPlcKP O2g2TdMv41 S47zCXaeYFBeMTJjDKRsTK IsvAepgm4byO9bIu8+PC9j b2reva07rW74gKS+PHRkIH K8aQnzELqv TNVisN4uTRseEaX9RQPxYe QcbC48jCRxDEknMp5wnCgs aFscEM3oPGNgjhisp626Yp Tef6ktGKWh cBVmVWdmAXR0G83rz7P9IG UcOAKwRZW4sXQ3aQ1yzRut bjogbGVmdDsgdmVydGljYW kbYPnyI208 IHRvcDsnPlBhdGllbnQgTm CeGGz6O1VdEce4CTTyuCiw KS2bhQWxWFptNm5zpCzweX vbYX7oFLYu vjjcp103ItTyc5ahLCNvaD YdCSwqTWS9C79va0W1ZNDr YFCdVWN9aXG3pN7ieKilqy ogbGVmdDsg eyWovPfyEKwkOIjvE078FI RvcDsnPkJpcnRoIERhdGU6 BC36WN56pCAeo4K8xTV1U2 BhZGRpbmct nukiuLR7PPJxPIEcbM97Bj 2gdHxmCe1bDHEfUYX3JEXr bFNpP1QqkT5vCmGbQPHrKZ KeZ3TwdCNm YOljG323KNovBpO1IETvif QfN4SzELMtnQsvAeH8r3K7 Bu1WJ3O2IP68FR82tFOen8 T5xVZ3Y7Xv ENEglcyonvpeeVK9TMPyCU WfhL84Qk8smFotBt1wQYOv LSH6VPJtpWZuS3IlmY7iKw AjMDAwMDAw W1MuiCMyYItjF429ICnxYm K4WRTmkgKjT7BhGLQugWgp OlD8f8S6Qs0MNYw4AK31XD 10hYHld0B5 tVT0H6ZoKKNdfzyejqevfF D2YDVqSAAlgC80Wk4dzUmx Py2lZCJyGDF7JXTcqACsG0 YkwU2jTuFt NPRpIKChJ9JeuOLvXWxvK6 55JUptMoS1BVXwdhIoI8Hf YNOeqOsaZgX8h7A2Fc3FEO YbTB89RPM6 hVH6EV43ZC31E9QrMbwlwM FibGU+PHRhYmxlIHdpZHRo WRckPNYkCrSfpOvaBM9mOc 9yZGVyLWNv rHxlsCRkCkEfs9jcUXRvKO zsOJ8okHbqK4NuwII1BXYh s3v6Lj73U90nL3LttNU+PG JkaXN6wDS3 vN3jHnYeHcH9RGnrR892Zs GqkLGcJoxsu7ztz1ukpRd9 CnO1HZCepuLitYuxNFE9f2 FxJx86B55w IHdpZHRoPSIxNSUiIHZhbG hawp3deQ5cHa8+PGNvbCB3 tWT6sR8uBfGaTqA6NGrjJ3 49InRvcCIv Lnkji0gti1lylUt6XoWwAK CcdiHioAlcPHX3g2NbHf42 D8XgyLhsu5HyHey7fd23pX Rmb0E6eEL5 P2RhVFFpitziiKBxaLcqTU 7jLAMtstohYJMzvE7hGZSl O2n7VqUnPaF6AMzrG0Votf A7MXSidWHw HWnqPYR1J67xl5H4IHKeCX NkTTD2iMG0yH4ryBkklsop bGVmdDsgdmVydGljYWwtYW rnI564IIHz yNaqMTDukR7qVJSjjSHvsK khVB1fVBKaxumaHubLDQ3Y TiwgRUxJWkFCRVRIIEFOTj wvdGQ+PHRk STF6hIfbRWtbWGEroG0lYN TrV3m2WtNnCaZ2ISkaJ6Jd QSDnzaydMk69sG7rEfAoEl H7VZerB5Jj zfM4SUMmoPSiNDkoNHJ7Y2 3yq0H7UOQlLHTrNEM6qBV5 vJ8yiFbcwkpxcROpcYqnfv VydGljYWwt TYadW775TMGfwOlcFjX5Ph WrQiF3UvX0F0IyIup6SRDp wKggEF4mrNDbJAuqWh0abM anxGzhTA5d QTTjxvkaHGIxdM0vTHOigK LsmAerYN1rMNSfzootg347 LhLzMUK8EFIxkGGhQ0UrbQ 9yOiAjMDAw TACqL1ZhjMTaROtgE047JD pfOeP0EYYcaeWhH7JsCSPh xDvrErR2y0Q7Bl50NZRFWP FyczwvdGQ+ XIMiIOB3zNfyIZwfYRLqrK 9rIBRoW7k6UwHqOuR6WFcv G7ExNFHejurhFz30sT2hWd UdWjF9ZHad V6DpfgN9IIUgwDDcERtaZS B2U14tl7O5FXAfJBNzVMB2 oEK3rI7ueYzwcmjryJFlzH sgdmVydGlj MOtzMYuvJ480KMVeoWrbQh ZFTUFMRTwvdGQ+PHRkIHN0 oGytFJofOAOscM6lWCAjU5 x3TmRjCxE8 CYjcY2YhVDWbiylmNw11nH 6oXeZoVjV6FCecA5OczaA1 PXGovUVuWNrxSOG9K96ek3 V2KCTkDGUs JLU5cWR0jJ2gcSbcijwdcC VmdDsgdmVydGljYWwtYWxp E893NOLuiYgqMe6FLN51DO 83V2YgZxhc dGFibGU+PHRhYmxlIHdpZH NaXXefTWKyPuUaiSxkYG4w Od3hZJOeFQSxeIqvcJRfFc Obu1ljUEDm ILtsGF3maEfxN8ClpXX2SF Lln3e7Jg59C15iP1RvmAX+ ARBudOO2bUY9rS0uJlBmSf O4RYqmF219 HcQemAXeHjizq2koe4cpsA g9CqDlTLGmyqNmyZbyUUX0 x1UdEe55P33iDKkzIAQoEU IyMCUiIHZh fAweyx0ieB9cAh4+PGNvbC Y0kME5pM8iRuVpFgU3THmn P663YlQekGMiQdpeF09pX8 JvdXA+PHRy Xla9KQWasMwfQD3knHEnAO raSq9mSDW1EfJzUfEfBWup Q2VvBLYzptxigmgnkBC2UR NtKGEpbQ27 Uq2vvRblJa0oLCHyDJA9DQ PsfBTbV6KfgU2eIxSpIIVh XJHuF9SajGDpWHjyH290JM ekReE6NFIt mnHrG5SkWETtsChnApA2s0 E0Hn5SlPaobKTcEH9sFrGu NJp5V3DnTbc7QLVegOhbPA 0ncGFkZGlu Da0srBhfaPnvQE6sNOYqqs mtw757PvPkg5avZNMkgVEh GEexCZT0H37ks9O1RFDhYM BcTON0aMA7 gY6clYvtsorgtKRztFrmvm StjLeuIHqmIZoyQ338MERo bLahLxPMTkm2C0CaMoj5FQ WlwOanKX5l yWBzMEsuJz4qxJdvdHhfZH 4mAZGexqmeu338UqSgy2zr MCWfwXKmBXgtVAA3O33gp1 Z4PVDeFWMp EWJ7uZG1vQ0brPdmmvengX VmdDsgdmVydGljYWwtYWxp L166YSImyClvHs4KVog7R5 AsKxw2MGMb lLptSF1hzNTvUGziZa9dqV epuMmxLC3oWALbfqeeb624 LyFzv1raLKKeiTRgQXibAT D4G50lp0N2 AUJcUFHcOND7sNF0nA2ilJ lnbjogbGVmdDsgdmVydGlj RZqfNWcuB305FDVzoMzsXh BheWVyOjwv dGQ+RA93uo22O6LiXlhxWp n9ABHzIRU0sXD0oW7hDVUb WEfsp3R2hHG4T6ZcinBjrk 6pq5ghTHPm ZTo (more content not included)... Normal [facility] Inpatient Patient Summaryon 08-15-2021 Inpatient Patient Summary [place] [id number] Patient Discharge Instructions Name: IKE JONES : 1970 Patient Address: [address] [place] [address] Primary Care Provider: Name: RANDY CALLE After you are discharged if you find you have any questions, please, call [phone] ext [phone] to speak to a nurse. Discharge Diagnosis: Prescription Information: If you have been given a prescription for narcotics, seek immediate medical attention if you have any difficulty breathing or any sudden status changes such as confusion and sleepiness. If you or anyone you know is experiencing suicidal thoughts, mental health, alcohol and/or drug addiction problems; contact the [facility] 22/09 Crisis Hotline -Text 4HYMQ wt 916081. If you received any narcotics, sedation, or any other medication that causes drowsiness for the next 24 hours, unless otherwise directed: ? Do not drive a car. ? Do not operate machinery such as power tools, lawn mowers, drills, sewing machines, or stoves ? Avoid alcoholic beverages and drugs for allergies, nerves, or sleep ? Do not make important personal or business decisions or sign any legal documents [facility] would like to thank you for allowing us to assist you with your healthcare needs. The following includes patient education materials and information regarding your injury/illness. IKE JONES has been given the following list of follow-up instructions, prescriptions, and patient education materials: Follow-up Instructions With: Address: When: MYESHA VINSON [address] [place] [address], [place] [id number] Business (1) 09/03/2021 9:15 AM With: Address: When: RANDY CALLE [address] [place], [place] [address] [address] Business (1) Medications During the course of your visit, your medication list was updated with the most current information. The details of those changes are reflected below: Medications That Were Updated - Follow Below Instructions Other Medications Updated: potassium chloride (Potassium Chloride (Dwi-Ageh-Pmm 10) 10 mEq oral tablet, extended release) 1 tab(s) Oral every day. Medications to Continue That Have Not Changed Other Medications cyclobenzaprine (cyclobenzaprine 10 mg oral tablet) 1 tab(s) Oral At bedtime as needed for spasm. hydroCHLOROthiazide (hydroCHLOROthiazide 12.5 mg oral tablet) 1 tab(s) Oral every day. metoprolol (Metoprolol Succinate ER 100 mg oral tablet, extended release) 1 tab(s) Oral every day. traZODone (traZODone 50 mg oral tablet) 1 tab(s) Oral once a day (at bedtime). It is important to always keep an active list of medications available so that you can share with other providers and manage your medications appropriately. As an additional courtesy, we are also providing you with your final active medications list that you can keep with you. cyclobenzaprine (cyclobenzaprine 10 mg oral tablet) 1 tab(s) Oral At bedtime as needed for spasm. hydroCHLOROthiazide (hydroCHLOROthiazide 12.5 mg oral tablet) 1 tab(s) Oral every day. metoprolol (Metoprolol Succinate ER 100 mg oral tablet, extended release) 1 tab(s) Oral every day. potassium chloride (Potassium Chloride (Vsb-Bdwl-Vfu 10) 10 mEq oral tablet, extended release) 1 tab(s) Oral every day. traZODone (traZODone 50 mg oral tablet) 1 tab(s) Oral once a day (at bedtime). Take only the medications listed above. Contact your doctor prior to taking any medications not on this list. Diet & Activity Patient Activity Level: Patient Diet: Patient Activity Restrictions: Comment: Patient education materials, if any, will display below Viruses or Bacteria What?s got you sick? Antibiotics only treat bacterial infections. Viral illnesses cannot be treated with antibiotics. When an antibiotic is not prescribed, ask your healthcare professional for tips on how to relieve symptoms and feel better. Usual Cause Illness Viruses Bacteria Antibiotic Needed Cold/Runny Nose NO Bronchitis/Chest Cold (in otherwise healthy children and adults) NO Whooping Cough Yes Flu NO Strep Throat Yes Sore Throat (except strep) NO Fluid in the middle ear (otitis media with effusion) NO Urinary Tract Infection Yes Antibiotics Aren?t Always the Answer www.cdc.gov/getsmart GET SMART Know When Antibiotics Work U.S. Department of Health and Human Services Centers for Disease Control and Prevention October 2013 [facility] Patient Handouton 08-15-2021 Patient Handout [facility] Progress Note - Nurseon 07-31 Progress Note - Nurse Dr. Small reviews PAT information and testing results. Ok to proceed, no orders given. [Electronically Signed on: 08/14/2021 12:02 EDT] Dary Gallegos RN [Verified on: 08/14/2021 12:02 EDT] Dary Gallegos RN Normal [facility] .Auto Diff 1on 08-12-2021 Auto [place] % 8 % Normal 12 [facility] Comment on above: Performed By: #### 1 [id number], [id number] ####[facility] [place] [facility] (DEFAULT)[address] [place] [address] Baso Abs# 0.1 x10 Normal 0.0-0.2 [facility] Comment on above: Performed By: #### 1 [id number] ####[facility] [place] [facility] (DEFAULT)[address] [place] [address] Basophils/100 WBC (Bld) 0.9 % Normal 0.2-2.0 [facility] Comment on above: Performed By: #### 1 [id number] ####[facility] [place] [facility] (DEFAULT)[address] [place] [address] Eos Abs# 0.3 x10 Normal 0.0-0.4 [facility] Comment on above: Performed By: #### 1 [id number], [id number], [id number] ####[facility] [place] [facility] (DEFAULT)[address] [place] [address] Eosinophils/100 WBC (Bld) 3.9 % Normal 0.9-4.0 [facility] Comment on above: Performed By: #### 1 [id number], [id number] ####[facility] [place] [facility] (DEFAULT)[address] [place] [address] Lymph Abs# 2.6 x10 Normal 1.3-2.9 [facility] Comment on above: Performed By: #### 1 [id number], [id number], [id number] ####[facility] [place] [facility] (DEFAULT)[address] [place] [address] Lymphocytes/100 WBC (Bld) 30 % Normal 14-48 [facility] Comment on above: Performed By: #### 1 [id number], [id number], [id number] ####[facility] [place] [facility] (DEFAULT)[address] [place] [address] [place] Abs# 0.7 x10 Normal 0.0-0.8 [facility] Comment on above: Performed By: #### 1 [id number], [id number], [id number] ####[facility] [place] [facility] (DEFAULT)[address] [place] [address] Neut Abs# 5.0 x10 Normal 1.5-9.2 [facility] Comment on above: Performed By: #### 1 [id number], [id number], [id number] ####[facility] (DEFAULT)[address] [place] [address] Neutrophils/100 WBC (Bld) 58 % Normal 44-88 [facility] Comment on above: Performed By: #### 1 [id number], [id number], [id number] ####[facility] (DEFAULT)[address] [place] [address] Standardon 08-12-2021 eGFR Non AA >60 Invalid Interpretation Code [facility] Comment on above: Performed By: #### 1 [id number], [id number] ####[facility] (DEFAULT)[address] [place] [address] eGFR AA >60 Invalid Interpretation Code [facility] Comment on above: Result Comment: Treasury Director medina Kidney disease could be indicated at eGFRs of less than 60 ml/min/1.73m2. Kidney Failure is indicated at less than 15 ml/min/1.73m2 Performed By: #### 1 [id number], [id number], [id number] ####[facility] [place] [facility] (DEFAULT)[address] [place] [address] Anion gap [Moles/Vol] 14.0 mmol/L Normal 5.0-19.0 [facility] Comment on above: Performed By: #### 1 [id number], [id number], [id number] ####[facility] [place] [facility] (DEFAULT)[address] [place] [address] Calcium [Mass/Vol] 9.6 mg/dL Normal 8.9-10.3 [facility] Comment on above: Performed By: #### 1 [id number], [id number], [id number] ####[facility] [place] [facility] (DEFAULT)[address] [place] [address] Chloride [Moles/Vol] 102 mmol/L Normal 101-111 [facility] Comment on above: Performed By: #### 1 [id number], [id number], [id number] ####[facility] [place] [facility] (DEFAULT)[address] [place] [address] 49931 CO2 [Moles/Vol] 25 mmol/L Normal 21-32 [facility] Comment on above: Performed By: #### 1 [id number] ####[facility] [place] [facility] (DEFAULT)[address] [place] [address] 76250 Creatinine [Mass/Vol] 0.72 mg/dL Normal 0.60-1.30 [facility] Comment on above: Performed By: #### 1 [id number] ####[facility] [place] [facility] (DEFAULT)[address] [place] [address] 45519 Glucose [Mass/Vol] 100.0 mg/dL Normal 74.0-118.0 [facility] Comment on above: Performed By: #### 1 [id number], [id number] ####[facility] [place] [facility] (DEFAULT)[address] [place] [address] 04174 Osmolality 275 mOsm/L Invalid Interpretation Code [facility] Comment on above: Performed By: #### 1 [id number], [id number], [id number] ####[facility] [place] [facility] (DEFAULT)[address] [place] [address] 46183 Potassium [Moles/Vol] 3.4 mmol/L Low 3.6-5.1 [facility] Comment on above: Performed By: #### 1 [id number], [id number], [id number] ####[facility] [place] [facility] (DEFAULT)[address] [place] [address] 98773 Sodium [Moles/Vol] 138.0 mmol/L Normal 136.0-144.0 [facility] Comment on above: Performed By: #### 1 [id number], [id number], [id number] ####[facility] [place] [facility] (DEFAULT)62 [place] [address] Urea nitrogen [Mass/Vol] 10 mg/dL Normal 8-26 [facility] Comment on above: Performed By: #### 1 [id number], [id number] ####[facility] [place] [facility] (DEFAULT)[address] [place] [address] Urea nitrogen/Creatinine [Mass ratio] 14.0 mg/mg Normal 4.6-16.2 [facility] Comment on above: Performed By: #### 1 [id number], [id number], [id number] ####[facility] [place] [facility] (DEFAULT)[address] [place] [address] CBC w/ Auto Diffon 2 Erythrocyte distribution width (RBC) [Ratio] 14.6 % Normal 11.5-15.0 [facility] Comment on above: Order Comment: CBC C LOTTED. PATIENT CALLED BACK FOR RECOLLECT. Performed By: #### 1 [id number], [id number], [id number] ####[facility] [place] [facility] (DEFAULT)[address] [place] [address] Hematocrit (Bld) [Volume fraction] 35.0 % Normal 33.7-40.4 [facility] Comment on above: Order Comment: CBC C LOTTED. PATIENT CALLED BACK FOR RECOLLECT. Performed By: #### 1 [id number], [id number], [id number] ####[facility] [place] [facility] (DEFAULT)[address] [place] [address] Hemoglobin (Bld) [Mass/Vol] 11.0 g/dL Low 11.3-15.9 [facility] Comment on above: Order Comment: CBC C LOTTED. PATIENT CALLED BACK FOR RECOLLECT. Performed By: #### 1 [id number], [id number], [id number] ####[facility] [place] [facility] (DEFAULT)[address] [place] [address] Instr WBC 8.6 x10 Invalid Interpretation Code [facility] Comment on above: Order Comment: CBC C LOTTED. PATIENT CALLED BACK FOR RECOLLECT. Result Comment: CBC RECOLLECTED @ 08/12/2021 15:15:27 EDT BY MHDMITCHELL. GILMORE. Performed By: #### 1 [id number], [id number], [id number] ####[facility] [place] [facility] (DEFAULT)[address] [place] [address] Man Diff? Auto Normal [facility] Comment on above: Order Comment: CBC C LOTTED. PATIENT CALLED BACK FOR RECOLLECT. Performed By: #### 1 [id number], [id number], [id number] ####[facility] [place] (DEFAULT)[address] [place] [address] MCH (RBC) [Entitic mass] 25 pg Normal 24-34 [facility] Comment on above: Order Comment: CBC C LOTTED. PATIENT CALLED BACK FOR RECOLLECT. Performed By: #### 1 [id number], [id number], [id number] ####[facility] (DEFAULT)[address] [place] [address] MCHC (RBC) [Mass/Vol] 31 g/dL Normal 26-37 [facility] Comment on above: Order Comment: CBC C LOTTED. PATIENT CALLED BACK FOR RECOLLECT. Performed By: #### 1 [id number], [id number], [id number] ####[facility] [place] [facility] (DEFAULT)[address] [place] [address] MCV (RBC) [Entitic vol] 79 fL Low 81-100 [facility] Comment on above: Order Comment: CBC C LOTTED. PATIENT CALLED BACK FOR RECOLLECT. Performed By: #### 1 [id number], [id number], [id number] ####[facility] (DEFAULT)[address] [place] [address] Platelet 491 x10 High 138-427 [facility] Comment on above: Order Comment: CBC C LOTTED. PATIENT CALLED BACK FOR RECOLLECT. Performed By: #### 1 [id number], [id number], [id number] ####[facility] [place] [facility] (DEFAULT)[address] [place] [address] Platelet mean volume (Bld) [Entitic vol] 9.4 fL Normal 6.3-10.2 [facility] Comment on above: Order Comment: CBC C LOTTED. PATIENT CALLED BACK FOR RECOLLECT. Performed By: #### 1 [id number], [id number], [id number] ####[facility] [place] [facility] (DEFAULT)[address] [place] [address] RBC 4.41 x10 Normal 3.70-5.30 [facility] Comment on above: Order Comment: CBC C LOTTED. PATIENT CALLED BACK FOR RECOLLECT. Performed By: #### 1 [id number], [id number], [id number] ####[facility] [place] [facility] (DEFAULT)[address] [place] [address] WBC 8.6 x10 Normal 3.5-10.5 [facility] Comment on above: Order Comment: CBC C LOTTED. PATIENT CALLED BACK FOR RECOLLECT. Performed By: #### 1 [id number], [id number], [id number] ####[facility] [place] [facility] (DEFAULT)[address] [place] [address] MRI Knee w/o Lefton 07-27-19 MRI Knee w/o Left HISTORY: Posterior a nd lateral left knee pain for 2 to 3 months. Occasional medial pain. TECHNIQUE: Routine non-contrast MRI of the knee LEFT COMPARISON: None RESULT: MENISCI: Medial Meniscus: Complex tearing with radial tear involving the posterior horn and apparent other areas of horizontal tearing involving the posterior horn and body with a portion of the meniscus protruding into the medial inferior gutter. Lateral Meniscus: Horizontal tearing especially involving the body, without significant meniscal displacement. LIGAMENTS: ACL, PCL, MCL, LCL complex: Intact. CARTILAGE: Small to moderate areas of high-grade partial thickness to full-thickness chondral loss within the medial compartment. Large areas of full-thickness chondral loss involving the patellofemoral compartment. Small areas of mostly low-grade partial-thickness chondral loss/fissuring within the lateral compartment. Tricompartmental osteophytes. TENDONS: Distal quadriceps, patellar tendon, and popliteus tendon intact. BONES AND MARROW: No evidence of fracture or bone marrow replacing process. Subchondral edema about the medial compartment, either reactive to the meniscal tear or degenerative in etiology. MUSCLES: Muscle bulk and signal intensity are normal. JOINT FLUID AND SYNOVIUM: Moderate joint effusion. No synovitis. No Lopez's cyst. OTHER: Subcutaneous edema. IMPRESSION: Medial meniscal tear. Lateral meniscal tear. 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 Report reported and signed by Michael Pappas on 07/28/2021 1331 Normal [facility] [employer] BASIC METABOLIC PANELon 05-01 BUN/CREATININE RATIO NOT APPLICABLE Normal - [facility] Comment on above: Order Comment: FASTI NG:YES FASTING: YES Performed By: #### 1 [id number] #### [facility] [address], [address] [place] [address] 3Rd Mate: Heraclio Miller MD Calcium [Mass/Vol] 9.0 mg/dL Normal 8.6-10.4 [facility] Comment on above: Order Comment: FASTI NG:YES FASTING: YES Performed By: #### 1 0165 #### [facility] [address], [address] [place] [address] 3Rd Mate: Heraclio Miller MD Chloride [Moles/Vol] 106 mmol/L Normal 98-110 [facility] Comment on above: Order Comment: FASTI NG:YES FASTING: YES Performed By: #### 1 0165 #### [facility] [place] [address] [address] Mate: Heraclio Miller MD CO2 [Moles/Vol] 27 mmol/L Normal 20-32 [facility] Comment on above: Order Comment: FASTI NG:YES FASTING: YES Performed By: #### 1 0165 #### [facility] [place] [address] [address] Mate: Heraclio Miller MD Creatinine [Mass/Vol] 0.73 mg/dL Normal 0.50-1.05 [facility] Comment on above: Order Comment: FASTI NG:YES FASTING: YES Result Comment: For patients >49 years of age, the reference limit for Creatinine is approximately 13% higher for people identified as -German. Performed By: #### 1 0165 #### [facility] [place] [address] [address] Mate: Heraclio Miller MD eGFR NON-AFR. CROATIAN 96 mL/min/1.73m2 Normal > OR = 60 [facility] Comment on above: Order Comment: FASTI NG:YES FASTING: YES Performed By: #### 1 0165 #### [facility] [place] [address] [address] Mate: Heraclio Miller MD GFR/1.73 sq M.predicted among blacks MDRD (S/P/Bld) [Vol rate/Area] 111 mL/min/{1.73_m2} Normal > OR = 60 [facility] Comment on above: Order Comment: FASTI NG:YES FASTING: YES Performed By: #### 1 0165 #### [facility] [place] [address] [address] Mate: Heraclio Miller MD Glucose [Mass/Vol] 85 mg/dL Normal 65-99 [facility] Comment on above: Order Comment: FASTI NG:YES FASTING: YES Result Comment: Fasting reference interval Performed By: #### 1 0165 #### [facility] [place] [address] [address] Mate: Heraclio Miller MD Potassium [Moles/Vol] 3.7 mmol/L Normal 3.5-5.3 [facility] Comment on above: Order Comment: FASTI NG:YES FASTING: YES Performed By: #### 1 0165 #### [facility] [place] [address] [address] Mate: Heraclio Miller MD Sodium [Moles/Vol] 140 mmol/L Normal 135-146 [facility] Comment on above: Order Comment: FASTI NG:YES FASTING: YES Performed By: #### 1 0165 #### [facility] [place] [address] [address] Mate: Heraclio Miller MD Urea nitrogen [Mass/Vol] 12 mg/dL Normal 7-25 [facility] Comment on above: Order Comment: FASTI NG:YES FASTING: YES Performed By: #### 1 0165 #### [facility] [address], [address] [place] [id number] [address]Rd Mate: Heraclio Miller MD Coding Summaryon 01-28-2021 Coding Summary HTMLBase 64 MrvlvuvdTOz4nTd+PGhlYW Q+GK9ZQOYfG89svKWgvL3T M2bPTM6CJIUFIRXICH0ZSU 9ncJM8EYzcO1XndoOl LcffwRKaLU78JPu3RCA6eC cgJGpwxO1poGFdT0q0OvTx CB95kT82TZpmJXThCyU3Vg ZpbjsgbWFy S5agSfJyxOHgAjv+PHRhYm xlIHdpZHRoPScxMDAlJyBz mTnyOV6eUl3vUBNgONVwmJ xhcHNlOiBj x2xpLZOmVPyiQV9xbCkdU6 QxcBX1WJTyx6l8Xy21bLL+ BWVuBOH8xLplEUpmo953Az Eax4lbCMN4 lVYoZGfgMVW9O89wz7H2WF EcGQWeNTG0eLH8iJ4pcOsx pzabP2BviTOrJjT8SAO4qA LqnF3yzTji nikeaB9iCvn+Z22KUG1HJF IAZV0JCmu6K1EhNhuyaBW+ NJ18ANAxVD23gDDslXPwe5 ypvNf3OqLl NTQhHGQ1cIoyIIpsf8GcTO OkZ17xwGRex2M2AGMntPlp rLMlCnSwcOM9rU3kZGunbw kcw8uwgsve Hepgs3pjer65dE64Q59tJZ ylBLVkMUR2VUYtKVQseCjh vc7bbH6iCg7+TJdjv7rdp8 zevUr6OrGm VTThfoLolOiqIGF5r4VlCh 57H8UfvYdyr5SnIkx1to16 iEKoq2Q4wZO2CMmlCXIhrG 1zENfzAdT6 ZKQfIzPemK04oUZeBEngIf 2egGtefKvgPN1jEIVskhxj HSGjlQ9gTAHvtTLbmRrrTN 4wNTBpbjtm i978NkZuSTA8VVWyqKUgL4 PqpE6jGaPcVTBgMZPfL6Cr bVSvNPkmK258LDdhEcZ5JA JbmfLbS0Ns EYTisPmnHxC7q0V8Ql1Wq6 SvqywnGWX5LNaoCTWmCrZ8 MvIaJzI4J9QoDjz3GYXtdS nxCS3gH7Wo GJDxnnmitzaxjGU9GVYzFD LpiQ67sFSgLKaqRf6ow3Q5 u134QIFmDZFpxD32Xt9pfE ogMTBwdCBU dB0djfqkr5dqkxwhBrJoXK FhOMf7CAv3OXHvwItoUdMl CAD6NnM6GCK0pMCpwX3awO qcciftoE8q Oyc+T13wzQ8wXMH9ZGU9ij adHFEanyZmPZ76ZC15M6Qj PjwvdGFibGU+PGRpdiBzdH fzYP1gFxMj r3gfu1ErLCggK1LlNLJqIM daNpi3RMYnSPR8sBT3oQ3t VLBuXNngg0Q6tKU1O7Oqyt Tzjc7lq0oo JLGkRUdqE84ssBMbt4Y6GP ZfbPJ3DVWftLddXfKisQ28 Oyc+QPWmlFsbb0EbQfwrl7 mtp6vjfIn0 LtPpIKGtfbJonTolDUB2h2 DuZh60D33nVJtuFQOtKWXf DFYlHBWkrYdbzp8ufF7zSj 8+PGNvbCB3 eJD1eP3sSWBbBuK9LQulF5 01SlSeeFWxQksar1woc1xm pIk9OqAqIUFzvuZwtQsxUB J7f8ZxYy88 L73rOBzjRRLmCFJpXQGyFL FhoBzmnr2kvP0nIl3+PC9j v9otdf40pX82pCP+PHRkIH M8mEhfZEtl BMRfjO7aFYlrUtC6QJQlRn RqfN04sJGaWKvsMy7amZct iTcrLA6iRHOjeasfn901Pu Zgh5ccYFTm kZItMSgaJUX7X01wg9J2HS FeIORwFXH0tTJ2sE8juMxh bjogbGVmdDsgdmVydGljYW tfHFkxW457 IHRvcDsnPlBhdGllbnQgTm NnOJa1L7XiFxr6SDSnwSjk EZ6lhSPkNLtnGm2vhByhbW qvPY8vBIXu zlqoc366ZgHdh9ruZYCjzF QpISdqMGH2F75sr9E1CWDh EZTkAER2pKV7bL2gzEvkub ogbGVmdDsg gmXpiSclUVchSKybK205LL RvcDsnPkJpcnRoIERhdGU6 BW66NB64mQAkh1W8bLI1I4 BhZGRpbmct iovaxVH1HGWcLNXszW88Cj 4jxMokHj3qXGQwEKX1SJCo vHIuA4XhpO2wMrMzNEIcUX NzK6WycXAm UUxwZ566EUqzLfZ5PQRxxe LbJ7LrCYWioYgfVyH6s9X2 Th9NB6U5WY99QG98zUJvy8 G1ySM2L6Gw UPEgqacljzeumVS7UMOyPX FunD29Gs1ubStyYh3gHULs AMB9QSArwBZoD7KhtP3iLo AjMDAwMDAw Z9WqeCHrZBthD508EYdoLp T5ZUOixgGjW3XuUEPjgBuy UnX5c0W8Gk3BLPs0WT47BJ 67kBQrg4Z8 cBB4W7BeREDiwqbprplrqI W6TTKrXVTrzD48Ty6mkMyw Mf0iDPYjADK2WWOklMTsC2 YpwB0aYvJs EJWpEPXzV9LwcLIzADmgJ9 35PNzxSdP7MFRjbiVrT4Lv XNKjrOfwMaA4z8L0Fm5ASF UyQM45QCE3 hRX1CH80NA55M4FgAqmsvX FibGU+PHRhYmxlIHdpZHRo HJupFOGoSlGcwRjxRP3xAr 9yZGVyLWNv wMxzoRLoGeZaj7vnFANcGZ nuZY5snTvkS2EmyCX4XYUn a6f9Ne04E11zT0BjhBY+PG WmsZD1qXC5 yO7nZfUwBbQ4LJlqP600Qx XzmZUcUodia8kcs6rdkZg4 KnS7FVBesqFlsKggTOR4c1 ZePj35Y09g IHdpZHRoPSIxNSUiIHZhbG mfew6kgK1fFj4+PGNvbCB3 vKJ7dT7qLsHpVkV7TGwnE1 49InRvcCIv Iuxbz0vdj9zhlPe9AsEjLA CepmYriLroUAZ2r0ImMr74 N8PhsDjtm3UeBts3fj65vZ Uek0D4vNI4 S1LnRTEqfabovLCznUgiDW 4jIPZispfkKBUqzG9kYVEt O3v9DbSsLvY3BNutM7Cwow P8UJTomGUc KNoeQWX2R37yz4H8NPQdUO ZiFHP2zKZ9lH6vrFjkybgz bGVmdDsgdmVydGljYWwtYW hkG828KOAl mOsuFSNkiP1eRBPaxLZxmA fiPU9hPRAftfrtMxkNFU3S TiwgRUxJWkFCRVRIIEFOTj wvdGQ+PHRk AJZ7fAjzVFwaVGYaoW2lJU CkD9y3SjIuIaG7NOsiM9Wz QBQuqhrnHh27oR2rXuGcKp G3SNnxB0Al wdX5XIZwdCAbEFkhSDM1Q4 6ek9J8WTLjAIYaPHZ7vYT2 rN2doUrwmcykoRPlkBlrrx VydGljYWwt PQktS747CMUnjHmgNbT1Xz LpElJ0QzU8U6YmZlx1CMNl pPcnAE9dbNDkZBpqJd7veY pciDdkOF5p XNObkhgkXTEvdX6iBIApjM TqkXhvQJ2uWVNhptegd361 RfByCRG6EPFgmNGlG6YnxK 9yOiAjMDAw HPXoG0FgvGCnTRohB391XC unSqS5ISXfufOcK6RnOHMe iAsfWlN6t4G5Bp50ODHJVQ FyczwvdGQ+ XKZkVJQ8gTnsRUqbKMLmfR 2oDUMpG6y1RpOmDsF1RXbo W5RxLCGmfdefEd99eS2fBw EjSdZ4LCqz H9TfuzQ4ECIsvVOhQMtsIS D3U25js2Z5OWCqFQQbPII1 yZG2oA1vyZuqiezrmRZbvS sgdmVydGlj JTrxZPqpK852LMSztLtpXv ZFTUFMRTwvdGQ+PHRkIHN0 fAqrCQnmBDSapV5wNTUfS2 j2RdXnKfR7 EFkbV8CpVDQlmtukXw34vP 5eGjJyEdV7QYlrP8WjxcJ6 HGOoiYXfPLhpPUU4F12kb7 J2RFKyBQGv JST6jLE9jA1mtGwrddugzA VmdDsgdmVydGljYWwtYWxp B271QFDonZhkXxAxnALSvN CuCZT1YS54 FK62R2QgBqtnrQXccCZ+PH RhYmxlIHdpZHRoPScxMDAl CpOrdHhiMX4lNr7nNPTxHL NvbGxhcHNl MmWcu0phKXToTMorBR7loB baI1QhdTC5PSUoc7d5Sz03 W41xN1TtmUY+YKXweFT4eY P8pK3tCaWc TlW4SMxeG095FgFagMBpIw etk1jhm4lowFv6AkIpYUHo tdUwuJudCLC6k4PnWr10X4 9sIHdpZHRo GFZdSWEgIXDfpWhhdt0utF 9wIi8+DTFecOW4yAY9mH9l MjVdVrT5JUqmH848VeYbgZ NdQlbmO37e A5ZszDY+PIDnSjo4WXQtsC qmTD6qdYVkDGqdUo4lMTI3 QtTaShHkAQahS8JjWXNroh ctcmlnaHQ6 NAWqUXTthJ29Do6nkCgrRj 6nGWQmRQI9LFGodYPwA4Mj vA9mUxHfTDZzNLKkV0MwrB RdPSnyX763 RDppOqJ0TZZlavUzZ5ZhHF VvqEkzSbT8m6O4Gn2UpNwp wOYhZD5bPnEmHRb4R6XmOb c8SWFikQlh GP2zfHFhJQhxOw1zzVtgfU ehZL6oGAOblwhxd427RoAy x2qnLREdpSXdMVrgPRD1W6 8ko8N4ULTv SVFcAMV0aSG9tJ7xqNmfqn ogbGVmdDsgdmVydGljYWwt PTfhF030WFGxuTxdShWBSc e9I7TqEqc1 WEXwbJkhAR5drSFbNAabMf 8epBieoUuaUK1kIGMdogxc v822UaRxa7njJKFgjCRjCM vxJHK6I81l s6N6HGZpWRPvYMP2jOX7oB 1hbGlnbjogbGVmdDsgdmVy mMjjQUgtJMuxK272FPDljA lgVv4BFic3 P4XoAwy9IIKgaYheKR9nsG DsOMivPq2btFfcoQyaOY5i QWIeiwgdf160ZfFlo1hmTR EwcHQgVGlt FEH8I56zs5G0VZZrDQUwCL U1oWL1yK7wiZasjcghjIFf dDsgdmVydGljYWwtYWxpZ2 46IHRvcDsn PlBheWVyOjwvdGQ+PC90cj 83S9IaNawhVcs2VDZjBHD3 dSQ1pE6bTOMgHLltq0N2iR P4M6HpnvEk ci1 (more content not included)... [facility] Consent Formson 01-23-2021 Consent Forms [id number]#1.0 [facility] Recordon MAGR PACU Record MAGR PACU Record Summary Primary Physician: Hua Oglesby DO Finalized Date/Time: 01/23/21 13:00:07 Pt. Name: IKE JONES MIGUEL Garduno/Sex: 1970 FEMALE Med Rec #: [id number] Physician: Hua Oglesby DO Financial #: [id number] Pt. Type: D Room/Bed: / Admit/Disch: 01/21/21 06:05:01 - 01/21/21 10:08:00 Institution: PACU Case Times MAGR Entry 1 In PACU I 01/21/21 08:20:00 Discharge from PACU 01/21/21 09:04:00 I Last Modified By: Lisa Connell RN 01/23/21 13:00:04 Finalized By: Lisa Connell RN Document Signatures Signed By: Lisa Connell RN 01/23/21 13:00 [facility] Consent Formson 01-22-2021 Consent Forms [id number]#[id number] [facility] Dis[facility] Instructionson Discharge Instructions [id number]#1.[address] [place] [address] Telemetry Stripson Telemetry Strips [id number]#1.0 [facility]est[facility] 01-21-2021 Anesthesia Note Patient: IKE JONES Age: 50 years Sex: FEMALE : 1970 Associated Diagnoses: None Author: Gen Jean MD Postoperative Information Post Operative Note: Post Anesthesia Care Unit. Health Status Allergies: Allergic Reactions (All) Moderate Demerol- Facial swelling. Mild Adhesive Bandage- Rash. Physical Examination General: No acute distress. Respiratory: Respirations are non-labored. Review / Management Condition: Stable. Assessment Anesthetic outcome No anesthetic complications noted. Adequate pain relief. No Complaint of nausea and vomiting. Plan Transfer/ Discharge: Patient can be discharged from PACU when criteria met. Condition stable. [Electronically Signed on: 01/21/2021 08:25 EST] Gen Jean MD [Verified on: 01/21/2021 08:25 EST] Gen Jean MD [facility] Anesthesia Note Patient: IKE JONES Age: 50 years Sex: FEMALE : 1970 Associated Diagnoses: None Author: Gen Jean MD Preoperative Information Anesthesia history: Patient history: Nausea and vomiting with anesthesia, No difficult intubation, No malignant hyperthermia. Family history: No malignant hyperthermia. Review of Systems Respiratory: No shortness of breath, No apnea. Cardiovascular: No known FL, No chest pain. Gastrointestinal: No heartburn. Health Status Allergies: Allergic Reactions (All) Moderate Demerol- Facial swelling. Mild Adhesive Bandage- Rash. Current medications: Home Medications (4) Active cyclobenzaprine 10 mg oral tablet 10 mg = 1 tab(s), PRN, PO, HS hydroCHLOROthiazide 12.5 mg oral tablet 12.5 mg = 1 tab(s), PO, Daily Metoprolol Succinate ER 100 mg oral tablet, extended release 100 mg = 1 tab(s), PO, Daily traZODone 50 mg oral tablet 50 mg = 1 tab(s), PO, Once a day (at bedtime) Problem list (past medical history): All Problems HTN (hypertension) / SNOMED CT 2968345485 / Confirmed Histories Family History: No family history items have been selected or recorded. Procedure history: Abdominal hysterectomy (903843863). Arthroscopy of knee (654194214). Lipoma (771650223). Comments: 01/04/2021 11:19 OSKAR Becker RN, Milana dominguez Social History Electronic Cigarette/Vaping Assessment Electronic Cigarette Use: Never. Alcohol Assessment Use: Current. Beer, 1-2 times per week Tobacco Assessment Never (less than 100 in lifetime) Tobacco Use:. Substance Abuse Assessment Substance use: Past. . Physical Examination VS/Measurements Vital Signs (last 24 hrs) Last Charted Heart Rate Peripheral 74 bpm (JAN 21:) Resp Rate 16 br/min (JAN 21) SBP H 169 mmHg (JAN 21 06:46) DBP H 103 mmHg (JAN 21:46) General: Alert and oriented, No acute distress. Airway: Mallampati classification: II (soft palate, fauces, uvula visible). Respiratory: Respirations are non-labored. Cardiovascular: Normal rate. Review / Management Laboratory Results ECG interpretation: Within normal limits. Plan [place] [employer]#(ASA ) physical status classification: Class II. Anesthetic Preoperative Plan Anesthesia: General. . Anesthetic plan, risks, benefits, and alternatives discussed with the patient and/or family. Patient verbalized understanding. Family/Guardian present. Informed consent was given. Consent was signed by the patient. [Electronically Signed on: 01/21/2021 07:10 EST] Gen Jean MD [Verified on: 01/21/2021 07:10 EST] Gen Jean MD Normal [facility] Inpatient Patient Summaryon 01-21-2021 Inpatient Patient Summary [address] [address] Patient Discharge Instructions Name: NICJAMARLAKIAIKE ANN : 1970 Patient Address: [address] [place] [address] Primary Care Provider: Name: RANDY CALLE After you are discharged if you find you have any questions, please, call [phone] ext [phone] to speak to a nurse. Discharge Diagnosis: Internal derangement of right knee; Tear of meniscus of right knee Prescription Information: If you have been given a prescription for narcotics, seek immediate medical attention if you have any difficulty breathing or any sudden status changes such as confusion and sleepiness. If you or anyone you know is experiencing suicidal thoughts, mental health, alcohol and/or drug addiction problems; contact the [facility] 22/09 Crisis Hotline -Text 4HVRV rh 461614. If you received any narcotics, sedation, or any other medication that causes drowsiness for the next 24 hours, unless otherwise directed: ? Do not drive a car. ? Do not operate machinery such as power tools, lawn mowers, drills, sewing machines, or stoves ? Avoid alcoholic beverages and drugs for allergies, nerves, or sleep ? Do not make important personal or business decisions or sign any legal documents [facility] would like to thank you for allowing us to assist you with your healthcare needs. The following includes patient education materials and information regarding your injury/illness. IKE JONES has been given the following list of follow-up instructions, prescriptions, and patient education materials: Follow-up Instructions With: Address: When: MYESHA VINSON [address] [place] [address], [address] [place] [address] [employer] (1) 01/30/2021 11:00 AM With: Address: When: [place] [address] Business (1) Medications During the course of your visit, your medication list was updated with the most current information. The details of those changes are reflected below: Medications to Continue That Have Not Changed Other Medications cyclobenzaprine (cyclobenzaprine 10 mg oral tablet) 1 tab(s) Oral At bedtime as needed for spasm. hydroCHLOROthiazide (hydroCHLOROthiazide 12.5 mg oral tablet) 1 tab(s) Oral every day. metoprolol (Metoprolol Succinate ER 100 mg oral tablet, extended release) 1 tab(s) Oral every day. traZODone (traZODone 50 mg oral tablet) 1 tab(s) Oral once a day (at bedtime). It is important to always keep an active list of medications available so that you can share with other providers and manage your medications appropriately. As an additional courtesy, we are also providing you with your final active medications list that you can keep with you. cyclobenzaprine (cyclobenzaprine 10 mg oral tablet) 1 tab(s) Oral At bedtime as needed for spasm. hydroCHLOROthiazide (hydroCHLOROthiazide 12.5 mg oral tablet) 1 tab(s) Oral every day. metoprolol (Metoprolol Succinate ER 100 mg oral tablet, extended release) 1 tab(s) Oral every day. traZODone (traZODone 50 mg oral tablet) 1 tab(s) Oral once a day (at bedtime). Take only the medications listed above. Contact your doctor prior to taking any medications not on this list. Diet & Activity Patient Activity Level: Patient Diet: Regular Patient Activity Restrictions: Comment: Patient education materials, if any, will display below DR. FINK POST OPERATIVE KNEE ARTHROSCOPY INSTRUCTIONS SURGEONS WRITTEN INSTRUTCTIONS: -If you have been given a cryo cuff after surgery you should use it about 20 min/hour for the first 24 hours. After that it is optional. TIP: Many patients prefer to use it a little longer because it helps to reduce the pain. -You should take it easy for the first 3 days following surgery. You should be a ?couch potato? and get up to eat and go to the bathroom. After the first 3 days, you may gradually increase your activities as tolerated. -Change your dressing in 1 day. If the wounds are clean and dry you can cover them with a band-aid. -You may shower in 1 day. DO NOT submerge the wound under water as in a bathtub, swimming pool, or hot tub. -You may bear weight as tolerated. Using crutches or assisted devices are not required. -You should elevate your extremity -If you have any questions or concerns, please call the office at [phone] Viruses or Bacteria What?s got you sick? Antibiotics only treat bacterial infections. Viral illnesses cannot be treated with antibiotics. When an antibiotic is not prescribed, ask your healthcare professional for tips on how to relieve symptoms and feel better. Usual Cause Illness Viruses Bacteria Antibiotic Needed Cold/Runny Nose NO Bronchitis/Chest Cold (in otherwise healthy children and adults) NO Whooping Cough Yes Flu NO Strep Throat Yes Sore Throat (except strep) (more content not included)... Normal [facility]R Intraoperative [facility]ordon 01-21-2021 [facility] [place] Intraoperative Record MAGR Intra-Op Record Summary Primary Physician: Hua Oglesby DO Finalized Date/Time: 01/21/21 11:10:34 Pt. Name: ROBERT IKESD Garduno/Sex: 1970 FEMALE Med Rec #: [id number] Physician: Hua Oglesby DO Financial #: [id number] Pt. Type: D Room/Bed: / Admit/Disch: 01/21/21 06:05:01 - 01/21/21 10:08:00 Institution: Case Times MAGR Entry 1 Patient In Room Time 01/21/21 07:22:00 Out Room Time 01/21/21 08:17:00 Anesthesia Start Time 01/21/21 07:23:00 Stop Time 01/21/21 08:18:00 Surgery Start Time 01/21/21 07:50:00 Stop Time 01/21/21 08:12:00 Last Modified By: Dorothy Archer RN 01/21/21 08:21:08 Case Attendance MAGR Entry 1 Entry 2 Entry 3 Case Attendee RenyHua martinez Satya S MD Long, Barbara RN Andrew DO Role Performed Surgeon - Primary Anesthesiologist of Otc Clerk Record Time In 01/21/21 07:22:00 01/21/21 07:22:00 01/21/21 07:22:00 Time Out 01/21/21 08:17:00 01/21/21 08:17:00 01/21/21 08:17:00 Procedure Arthroscopy Knee(Right) Arthroscopy Knee(Right) Arthroscopy Knee(Right) Last Modified By: Dorothy Archer RN, Barbara RN Long, Barbara RN 01/21/21 08:21:11 01/21/21 08:21:11 01/21/21 08:21:11 Entry 4 Entry 5 Case Attendee Nemo Mendez CST, Regina CST Role Performed Scrub Personnel Branch Assistant Time In 01/21/21 07:22:00 01/21/21 07:22:00 Time Out 01/21/21 08:17:00 01/21/21 08:17:00 Procedure Arthroscopy Knee(Right) Arthroscopy Knee(Right) Last Modified By: Dorothy Archer RN, Barbara RN 01/21/21 08:21:11 01/21/21 08:21:11 Surgical Procedures MAGR Pre-Care Text: A.20 Verifies operative procedure, surgical site, and laterality Im.150 Develops individualized plan of care Entry 1 Procedure Arthroscopy Knee Primary Procedure Yes Primary Surgeon Hua Oglesby DO Surgeon Comment RIGHT KNEE ARTHROSCOPY Start 01/21/21 07:50:00 - LATERAL MENISECTOMY Stop 01/21/21 08:12:00 Anesthesia Type General Surgical Service Orthopedics Wound Class Clean Technique Details Closure Technique Primary Entire procedure No was performed via laparoscope or robotic assistance Last Modified By: Dorothy Archer RN 01/21/21 08:21:36 Post-Care Text: O.730 The patient's care is consistent with the individualized perioperative plan of care General Case Data MAGR Pre-Care Text: A.350.1 Classifies surgical wound Entry 1 Case Information OR MAGR OR 05 Case Level Level 4 Wound Class Clean Specialty Orthopedics ASA Class 2 Diagnosis Preop Diagnosis INTERNAL DERANGEMENT Postop Same As Preop Yes RIGHT KNEE Postop Diagnosis INTERNAL DERANGEMENT RIGHT KNEE Blunt or No Is the procedure No penetrating injury considered occured prior to Emergent/Urgent? the start of the procedure: Last Modified By: Dorothy Archer RN 01/21/21 07:54:11 Post-Care Text: O.760 Patient receives consistent and comparable care regardless of the setting Time Out MAGR Entry 1 Time out date/time 01/21/21 07:49:00 All team members Yes have introduced themselves by name and role Surgeon, Yes Surgeon reviews Yes anesthesia, nurse critical or confirm patient, unexpected steps, site, procedure operative duration, anticipated blood loss Anesthesia team Yes Nursing team Yes reviews any reviews sterility patient-specific (including concerns indicator results) and equipment issues/concerns Antibiotic Antibiotic Yes Administration Time 07:54 prophylaxis given within the last 60 minutes Is essential N/A imaging displayed? Last Modified By: Dorothy Archer RN 01/21/21 07:54:47 Patient Positioning MAGR Pre-Care Text: A.280 Identifies baseline musculoskeletal status Im.40 Positions the patient Im.80 Applies safety devices Entry 1 Procedure Arthroscopy Knee(Right) Body Position Supine Left Arm Position Extended on padded arm Right Arm Position Extended on padded arm board board Left Leg Position Dangling Right Leg Position Other/see comments Feet Uncrossed? Yes Press Points Checked Yes Positioning Device Pillow Outcome Met (O.80) Yes Last Modified By: Dorothy Archer RN 01/21/21 08:03:33 Post-Care Text: E.290 Evaluates musculoskeletal status O.80 Patient is free from signs and symptoms of injury related to positioning General Comments: RIGHT KNEE KING Skin Prep MAGR Pre-Care Text: A.30 Verifies allergies Im.270 Performs skin preparation Im.270.1 Implements protective measures to prevent skin and tissue injury due to chemical sources Entry 1 Skin Prep Syntegrity Prep Agents (Im.270) Chlorhexidine Gluconate Prep By Dorothy Archer RN and Alcohol Prep Area (Im.270) Knee and lower leg, Foot Prep Area Details Right Skin Prep Agent Dry Yes Without Pooling Hair Removal Syntegrity Hair Removal Methods No hair removal performed Outcome Met (O.100) Yes Last Modified By: Dorothy Archer RN 01/21/21 07:55:36 Post-Care T (more content not included)... [facility] Postoperative Record MAGR Phase II Record Summary Primary Physician: Hua Oglesby DO Finalized Date/Time: 01/21/21 10:17:55 Pt. Name: HARRIS JONESFOREST Garduno/Sex: 1970 FEMALE Med Rec #: [id number] Physician: Hua Oglesby DO Financial #: [id number] Pt. Type: D Room/Bed: / Admit/Disch: 01/21/21 06:05:01 - Institution: Phase II Case Times MAGR Pre-Care Text: Patient is free from s/s of injury. Patient remains free from compromised physical state related to surgery or anesthesia. Patient comfort maintained. Patient/family verbalize understanding of discharge instructions. Entry 1 In PACU II 01/21/21 09:05:00 Discharge from PACU 01/21/21 10:08:00 II Last Modified By: Marianna Gerber RN 01/21/21 10:17:49 Post-Care Text: The patient remains free from s/s of injury. Patient's vital signs stable, circulation maintained, return to preop mental and physical status, opsite/dressing intact, minimal or absent nausea and vomiting, tolerates po intake. Patient verbalizes adequate pain control. Patient/family express understanding of discharge instructions. Finalized By: Marianna Gerber RN Document Signatures Signed By: Marianna Gerber RN 01/21/21 10:17 [facility] Preoperative Record MAGR Pre-Op Record Summary Primary Physician: Hua Oglesby DO Finalized Date/Time: 01/21/21 08:40:07 Pt. Name: REZA JONESSD Garduno/Sex: 1970 FEMALE Med Rec #: [id number] Physician: Hua Oglesby DO Financial #: [id number] Pt. Type: D Room/Bed: / Admit/Disch: 01/21/21 06:05:01 - Institution: Pre-Op Case Times MAGR Pre-Care Text: Patient will be optimally prepared for surgery. Patient is free from s/s of injury. Provide information to patient/family related to plan of care. Verify patient allergies. Confirm identity and verify consent before the operative or invasive procedure. Entry 1 Patient Arrival Time 01/21/21 06:14:00 Preop Departure 01/21/21 07:20:00 Last Modified By: Carolina Painter RN 01/21/21 08:40:05 Post-Care Text: Patient is prepared mentally and physically and is ready for surgery. The patient remains free from s/s of injury. Patient/family express understanding of plan of care and participate in decisions affecting his or her perioperrative plan of care. Allergies documented appropriately. Patient identifiers and consent correct. General Comments: Denies chest pain, shortness of breath or illnessess. Denies pacemaker/defib. Denies sleep apnea. Reviewed with patient not to do anything for the next 24 hours that requires concentration Finalized By: Carolina Painter RN Document Signatures Signed By: Carolina Painter RN 01/21/21 08:40 Normal [facility] Operative Report - Surgeon/P aster 01-21-2021 Operative Report - Surgeon/Physician Preoperative diagnosis: Internal derangement right knee Postoperative diagnosis: Tear lateral meniscus right knee Procedure: Arthroscopic partial lateral meniscectomy right knee Surgeon: Max Oglesby D.O. Anesthesia: General Indications for surgery: Ongoing pain and discomfort right knee Estimated blood loss: Scant Complications: No complications Findings: Complex tear of the lateral meniscus. 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 In the medial compartment there was an area of chondromalacia articular irregularity which look like it had sealed over with some fibrocartilaginous scar. There was irregularities in the articular surface both medially and laterally. There was a previous anterior cruciate ligament reconstruction which was intact and grossly normal. Procedure summary: Patient was brought to the operative suite she was given general anesthetic. The knee was examined under anesthesia there was negative [place] negative drawer negative pivot shift the knee was stable. It was then placed in leg king sterilely prepped and draped in usual fashion a timeout was taken. An inferior lateral portal was established then an inferior medial. The patellofemoral joint there was slight irregularity of the articular surface some chondromalacia and some thinning there was some areas of exposed bone along the medial patella facet of the femoral trochlea. In the medial compartment there was areas of articular loss which appeared old has it appeared as though at one time there may been exposed bone that scarred over with fibrocartilaginous scar. The medial meniscus was grossly normal. In the notch the anterior cruciate ligament was intact and the posterior cruciate ligament was intact In the lateral compartment there was a complex tear of the lateral meniscus and there was erosive changes along the lateral femoral condyle utilizing a meniscal biter and a resector a partial lateral meniscectomy was performed. Each compartment was revisited the joint was irrigated and evacuated and the portals were closed with nylon suture. Sterile dressings were applied. [Electronically Signed on: 01/21/2021 10:16 EST] Hua Oglesby DO [Verified on: 01/21/2021 10:16 EST] Hua Oglesby DO [facility] Patient Handouton 01-21-[address] FINK POST OPERATIVE KNEE ARTHROSCOPY INSTRUCTIONS SURGEONS WRITTEN INSTRUTCTIONS: -If you have been given a cryo cuff after surgery you should use it about 20 min/hour for the first 24 hours. After that it is optional. TIP: Many patients prefer to use it a little longer because it helps to reduce the pain. -You should take it easy for the first 3 days following surgery. You should be a ?couch potato? and get up to eat and go to the bathroom. After the first 3 days, you may gradually increase your activities as tolerated. -Change your dressing in 1 day. If the wounds are clean and dry you can cover them with a band-aid. -You may shower in 1 day. DO NOT submerge the wound under water as in a bathtub, swimming pool, or hot tub. -You may bear weight as tolerated. Using crutches or assisted devices are not required. -You should elevate your extremity -If you have any questions or concerns, please call the office at [phone] [facility] COMPREHENSIVE METABOLIC PANE [place] 01-12-2021 Albumin [Mass/Vol] 4.3 g/dL Normal 3.6-5.1 [facility] Comment on above: Performed By: #### 7 600, [id number] #### [facility] of [address], [address] [place] [address] 3Rd Mate: Heraclio Miller MD Albumin/Globulin [Mass ratio] 1.8 {ratio} Normal 1.0-2.5 [facility] Comment on above: Performed By: #### 7 600, 78346 #### [facility] of [address], [address] [place] [address] 3Rd Mate: Heraclio Miller MD ALP [Catalytic activity/Vol] 60 U/L Normal 37-153 [facility] Comment on above: Performed By: #### 7 600, 98791 #### [facility] of [place] [address] [address] Mate: Heraclio Miller MD ALT [Catalytic activity/Vol] 17 U/L Normal 6-29 [facility] Comment on above: Performed By: #### 7 600, 96580 #### [facility] of [address], [address] [place] [address] 3Rd Mate: Heraclio Millre MD AST [Catalytic activity/Vol] 18 U/L Normal 10-35 [facility] Comment on above: Performed By: #### 7 600, 81959 #### [facility] of [place] [address] [address] Mate: Heraclio Miller MD Bilirubin [Mass/Vol] 1.1 mg/dL Normal 0.2-1.2 [facility] Comment on above: Performed By: #### 7 600, 02260 #### [facility] of [place] [address] [address] Mate: Heraclio Miller MD BUN/CREATININE RATIO NOT APPLICABLE Normal 6-22 [facility] Comment on above: Performed By: #### 7 600, 70302 #### [facility] of [address], [address] [place] [address] [address]Rd Mate: Heraclio Miller MD Calcium [Mass/Vol] 9.3 mg/dL Normal 8.6-10.4 [facility] Comment on above: Performed By: #### 7 600, 85012 #### [facility] [address], [address] [place] [address] 3Rd Mate: Heraclio Miller MD Chloride [Moles/Vol] 105 mmol/L Normal 98-110 [facility] Comment on above: Performed By: #### 7 600, 78019 #### [facility] of [address], [address] [place] [address] 3Rd Mate: Heraclio Miller MD CO2 [Moles/Vol] 28 mmol/L Normal 20-32 [facility] Comment on above: Performed By: #### 7 600, 09021 #### [facility] [place] [address] [address] Mate: Heraclio Miller MD Creatinine [Mass/Vol] 0.86 mg/dL Normal 0.50-1.05 [facility] Comment on above: Result Comment: For patients >49 years of age, the reference limit for Creatinine is approximately 13% higher for people identified as -German. Performed By: #### 7 600, 93277 #### [facility] [address], [address] [place] [address] [address]Rd Mate: Heraclio Miller MD eGFR NON-AFR. CROATIAN 79 mL/min/1.73m2 Normal > OR = 60 [facility] Comment on above: Performed By: #### 7 600, 40862 #### [facility] [address], [address] [place] [address] [address]Rd Mate: Heraclio Miller MD GFR/1.73 sq M.predicted among blacks MDRD (S/P/Bld) [Vol rate/Area] 91 mL/min/{1.73_m2} Normal > OR = 60 [facility] Comment on above: Performed By: #### 7 600, 81328 #### [facility] [address], [address] [place] [address] [address]Rd Mate: Heraclio Miller MD Globulin (S) [Mass/Vol] 2.4 g/dL Normal 1.9-3.7 [facility] Comment on above: Performed By: #### 7 600, 95092 #### [facility] [place] [address] [address] Mate: Heraclio Miller MD Glucose [Mass/Vol] 86 mg/dL Normal 65-139 [facility] Comment on above: Result Comment: Non-fasting reference interval Performed By: #### 7 600, 19903 #### [facility] [place] [address] [address] Mate: Heraclio Miller MD Potassium [Moles/Vol] 3.9 mmol/L Normal 3.5-5.3 [facility] Comment on above: Performed By: #### 7 600, 44450 #### [facility] [place] [address] [address] Mate: Heraclio Miller MD Protein [Mass/Vol] 6.7 g/dL Normal 6.1-8.1 [facility] Comment on above: Performed By: #### 7 600, 00572 #### [facility] [place] [address] [address] Mate: Heraclio Miller MD Sodium [Moles/Vol] 140 mmol/L Normal 135-146 [facility] Comment on above: Performed By: #### 7 600, 23000 #### [facility] [place] [address] [address] Mate: Heraclio Miller MD Urea nitrogen [Mass/Vol] 15 mg/dL Normal 7-25 [facility] Comment on above: Performed By: #### 7 600, 83134 #### [facility] [place] [address] [address] Mate: Heraclio Miller MD LIPID PANEL, [facility] 11 Cholesterol [Mass/Vol] 173 mg/dL Normal <200 [facility] Comment on above: Order Comment: FASTI NG:NO FASTING: NO Performed By: #### 7 600, 55285 #### [facility] [address], [address] [place] [address] [address]Rd Mate: Heraclio Miller MD Cholesterol in HDL [Mass/Vol] 69 mg/dL Normal > OR = 50 [facility] Comment on above: Order Comment: FASTI NG:NO FASTING: NO Performed By: #### 7 600, 00838 #### [facility] [address], [address] [place] [address] 3Rd Mate: Heraclio Miller MD Cholesterol in LDL [Mass/Vol] 89 mg/dL Normal [facility] Comment on above: Order Comment: FASTI NG:NO FASTING: NO Result Comment: Refe rence range: <100 Desirable range <100 mg/dL for primary prevention; <70 mg/dL for patients with CHD or diabetic patients with > or = 2 CHD risk factors. LDL-C is now calculated using the Estela calculation, which is a validated novel method providing better accuracy than the Friedewald equation in the estimation of LDL-C. Campos CAMARENA et al. MARQUISE. 2013;310(19): 1997-5884 (http://education.[employer].Cognia/faq/HRX157) Performed By: #### 7 600, 68524 #### [facility] [address], [address] [place] [address] 3Rd Mate: Heraclio Miller MD Cholesterol.total/C holesterol in HDL [Mass ratio] 2.5 {ratio} Normal <5.0 [facility] Comment on above: Order Comment: FASTI NG:NO FASTING: NO Performed By: #### 7 600, 82689 #### [facility] [address], [address] [place] [address] [address]Rd Mate: Heraclio Miller MD NON HDL CHOLESTEROL 104 mg/dL (calc) Normal <130 [facility] Comment on above: Order Comment: FASTI NG:NO FASTING: NO Result Comment: For patients with diabetes plus 1 major ASCVD risk factor, treating to a non-HDL-C goal of <100 mg/dL (LDL-C of <70 mg/dL) is considered a therapeutic option. Performed By: #### 7 600, 35978 #### [facility] [address], [address] [place] [address] [address]Rd Mate: Heraclio Miller MD Triglyceride [Mass/Vol] 68 mg/dL Normal <150 [facility] Comment on above: Order Comment: FASTI NG:NO FASTING: NO Performed By: #### 7 600, 06960 #### [facility] [address], [address] [place] [address] 3Rd Mate: Heraclio Miller MD Coding Summaryon 01-09-2021 Coding Summary HTMLBase 64 NzgrqrcsHUo1nZu+PGhlYW Q+UQ5BKFHcT58phAOlxM2V W7mEHS1AYIIZJOQEMC2QVI 3edTJ6JTgkT1BswhZe NsshkPUfIO15AHd6YVO4jZ juYEvigT0seNYkI1z8IrUt HN07bM62KXlyJKDnWnO0Do ZpbjsgbWFy O3ycIgIhlBRhLze+PHRhYm xlIHdpZHRoPScxMDAlJyBz vWkvXD2uSa6aCUJfURXsyP xhcHNlOiBj k9tsEYPsDQufJD1xzFokT9 RvmEQ4VZQdp9z1Va47yKW+ QPTnDLR2xFxiUBjba774Jl Deh3geLHW1 eLAtNEbzIRI8C63pv5C6HG TvYUSpCMM8eCG9qC8ydQjj hwecT5KxoUSkTcS7BDR3sF QnpP7ibBml wbtknB8sZxj+B14THU5DBZ IXFG9OBuz1E4OlYlahuYT+ SC77SGVkPC09iCWhoTOyz2 urnEu5WtTn TVBbPWU0tRpaXYnaf1XwPT TkW89nnWOxu5G2RPIlnJer vZKkRxFpxBB4nH1lPRjwfp bag7huhvda Zmbkm3niqz39cE22A83iST zcUCNiAMT5NPXcFXNklUpb zu7dwA1pIr5+LCfsw9uzu6 bunWu0TgIn COXcrmHtiMlhYCT9v8QnTw 53D6NasNkqz7CaFhz3sh91 nCBzw7T5vPG4ZXaxHNJgbG 4gCGesOpP0 WTToNdIdjY76aXEzMHwuHa 2wzVdkdZbdRP6tWBWwclrr XUCauP8lSRWllMNntTcuOK 4wNTBpbjtm g130ShZnZXK5QFPedTMsZ0 IvpS3aIeNbIMSjULDaP4Oq tHSqCDjsO956CVdvBhO3AG KrnlJkD6Wd JGOnyIheKeR6f8V0Hn6Iu9 EdvcltBBJ3WIxvNVAnMeKa NjFkCzN1V2YyErh9GXIhsA acLT6qQ7Ys DLDswukvobefdKJ0RISpKJ IbtB99wZNgJYjeNi6ma3J3 c359RCOzZPWzxB77Ui7tgD ogMTBwdCBU fK8izljug4czugzeDlBdQL SfJMh8CSv7CPDusQyhXtPl ULO4UyF7PJR7uJQsmU7ztW jdrqnqfQ2h Oyc+V16hxA2dRUK8XPS2ac wcBZJuflBvMD01WG09K4Fq PjwvdGFibGU+PGRpdiBzdH vuSK9fInDd w4ovj0XjGDcaP4AeADHtOY abXzv6WPPmWBJ5qNV6uM5r PZWjYOqem6L1jTQ9C1Kgoc Ighl9dj4lb RACeXGfzK38qhAUfl2S5XR LwjNA4YNXfoHpvBrCzhY95 Oyc+YSGdsIpsz9MpKccpr9 amv7bjmMc0 RgDmFRAapdTsqAfxURN7n3 WmGh43B97kUKpiFLMeULBm ZRZoHVZslJqufc2mxY7tDq 8+PGNvbCB3 dFN2hU6wXIZtYvZ6ACijP6 28WlRurKYtRnjwi0lma7vk fUf6SlHuYKUzvcKhbYttDW N6y0YyLc87 O27kESxfXYPrLAHzOKLqTL UmcFewwc7tlJ3rHh6+PC9j m7dkci10sV63fTG+PHRkIH N0nZwcORdf WXHkmM4mKWbqXaN0CZLzGy PewP23wKZwIObuNt1ixVkl jNhqWJ0hRLXyvcdlq066Vm Wyg3rgYXYl zBUtGKvjFLX1N38ql9L3SN LqNXPyKBA2aZT1uA5eqFrv bjogbGVmdDsgdmVydGljYW dvTZxzV019 IHRvcDsnPlBhdGllbnQgTm YlFTa3X1VkBsh9BPMviFam AX9liFUfVQphWt5xnExciQ sbTA3rJGZk mrati916XyMzg0kvITKjvN QhCGgsXAM2C13mh7U6LJUd AWHnZZH2mNC7oB5bsKzcwx ogbGVmdDsg imIbjQmwSZhhOHfuY244TD RvcDsnPkJpcnRoIERhdGU6 ZS06VT81sQHhg1J7jTS6R4 BhZGRpbmct zqeocQE7KXVaGZWbuH89Kz 9ksVvrIw6gABMnYUC2GGXp oHGxP7FagR7oZzBhWGZqVI QxV1FbkXTp EAlnX384PMmqWsN1EMBgxr AsY7BvVEQpyHkqJmS4h0S4 Gj4XF9N5YP09MQ32vVYwe6 H0rVA1U3Zp VHEuauhsjmtymUF6YVMgBX KjuW45Xw3qzUcfKn3aSLKk HGL9RRKmcGHgW9YiyF1wQu AjMDAwMDAw D0GmqXGhQEcdX844CUkgEs J7PZAabqNuE9WwXJMybFne BsU4w8M3Ci9NTMq8UY31UC 60xOHko1Q9 lNJ7Q6PuQJGxuvstefwkbR S4KGDhSHPfjH40Kn2roXil Gc5aIONzIQT7YNJreSMzW5 KwwL4tQeYm ITQlFLIwF9ZnsUKqUFzyG4 34PVetQiF5KOOmtpIxJ3Qk EDAxhHwuXzL0o0A4Up2JJG VfJZ69HXP3 jKC5HJ75TL65E9VlHqcgrM FibGU+PHRhYmxlIHdpZHRo YZazIVAxUdDgwEynTQ6kOh 9yZGVyLWNv iLncaZKwDhOxb9srSJUaYE sbJW5jdHprD0BjlOX8YHXw x3f7Fm76M27iI3ChgVH+PG NdrVJ0bAR9 xA3gFgXvJqS8JHsrY583Bk WdlTRcZklaz0qbb3beuCd0 DcN1UABgfmVuqQtrWON8h4 QePq34J04n IHdpZHRoPSIxNSUiIHZhbG ekzj5qrH3rAe8+PGNvbCB3 hDC3jI5qNpQxAkO3DSzvN7 49InRvcCIv Fmjkv3ztw5rmeJe8KxVaTI NrdwLroRztMUE8a7RdWe49 R9FndUowl6HcBdk1hy99sY Avb8F3sEO6 O0TrUHMaqtfydHVekArkBW 4iUODmyaxpSNCnfG7cMYRd W6k7CsTaRgJ9VWjnN6Dzub J5UBSfpONk DQhqMAW7Q13yp5E8SJDlMC PuHGU7aRR7jM3ryYiiigtg bGVmdDsgdmVydGljYWwtYW mjA741UDMz hOxbTOYtnE0rJFXglTZuhY ybVQ1lWUKwpbkpLdkQWG7E TiwgRUxJWkFCRVRIIEFOTj wvdGQ+PHRk KDI2mDiaOSxxTMAtjM8iQA VvT8e5DePtRaM0TSlaU3Nx VAVevooqWc51oU0mPlXoEr P9LGvwZ5Dv woU5RQHglSTqVXwvBJW8A5 8og4W7BNOzYEUsZVS7oYT9 aV9iaJzkkzpobRLhpDuhee VydGljYWwt NZyzN983UTNmmCjkQcB6Ae BfIzS5FwP3F5ZwNhb5CVQi uWcxSZ1yjLKmGEqtMt8lrY cylAcpYX0d CTEyrsteMQVeyH3hNRBhmG NcaRwtCH7eYYKiledas372 ChUiZKS7BUTvzBIqR3QhhJ 9yOiAjMDAw EKUjA3QggKOyUVwmO145TR yiAaX4FWDgyiGeM5KdHWPl lFqnMpF0u8C6Ku74NFOMGV FyczwvdGQ+ EDJsTGC5hZdeAJjnHWPsxL 8zNTRmR2v0BdAlSfS4EDil T6KyINXgbvtjRd57gI9bCl RgOuY4MTyg L3JeldL8OARmxSZuWLhjMB C2B78er5L9KKUoTNGaOUX6 hNF3dR3vrLsienjphEOvuV sgdmVydGlj GOrvZVaqB833ZJMkfVueTr ZFTUFMRTwvdGQ+PHRkIHN0 uLfvIVcfDRFfgW4kJXGdL9 v1QyWgHvE2 EHfsC9KbCFEmqdtwZw93lR 3sBqWgRbM4OUwkH7JoszQ9 FDPgxQOwFMkdUQD3Q41qy5 V7ZHNbMKPm UTE0gXY6qY8fmFnuqridxF VmdDsgdmVydGljYWwtYWxp B129FLYhaCvlOr1JVW45UO 78R3LxBakd dGFibGU+PHRhYmxlIHdpZH JmGJxeCDUaEzPtsThtBO2m Qv3sQFIoFXXkqKfmkBOkWp Gjv3pkUIRx SEpnSL2ukWnzS4EkpLP3XC Clu3c0Vg05H41eK2GpnRC+ POCpvCA8dLK9uL0eHtQgYf C1AIbnR008 IlWryLYpXrxbj6riv5ehmG e0TiDzFDFvisVvyRxmEOQ4 j6CeQd43G68oATjcOJPcPH IyMCUiIHZh rUsuha3flB3yVw1+PGNvbC J2hFK3zK7lUiWnTcM3DBqu D827IbWjjVDhMaekG30tT6 JvdXA+PHRy Hip0CPAhfKnkSS1woLNfRX lmPd1eVIY3EnScXiJkDZzr M5RbEROotciyxuvzqJH7VN MpWBNfyH89 Mq0fwFmeKi4dPJEgQIA6YF NysKMaW6YwjW2bEtIsZMYu ONVlW1XkwONsIKchF923PG chVnB6PHFt qcNlT8HiEFWgyYnhRgY7g9 Y1Hx2YfHlblYAcJY3tHcTq ZYo3L6KwQuf4SKTyhFgmTB 0ncGFkZGlu Nu4osVxgbAkfTR2dETRxhb uqh755ErYmk5opNTNliIVl AJeiRKW9X69ys4C7TJDlBC BiPYM8zCG5 eA5lrWgfdxrzrKNhwHqdmg EfqChgINwsMFdmR967LLKh gOpaGyAQIsk0C8ObEjr0CX EkbUvyTJ2f eEBoABgjGv9prMzwbLxsAH 7vURThfkiox760ZkNjg7pb BMDwoSTeEYlkTWM0Z37dt6 W3BLOoDQLt KUP1qLF1yU1ntFfhvblrkS VmdDsgdmVydGljYWwtYWxp O074XOBxiXatEo9YPqy1B4 GgZtz2RMQe yOfkKD0qlQGzQEeeMy8gdA vdaHtjSE5fWITnpeauk001 YnLjk0siTJRzyPEnXIlqVA B7U74rx2J8 ULRcKMFtPRO6kDV6bP9taU lnbjogbGVmdDsgdmVydGlj SNfaUYaiP621KSWvnWzuVt BheWVyOjwv dGQ+OU97wo91B7LhMdctLw f4PCIvHEW3vXZ7gS0mLETt VQaxh8Z1qMS2Y7BwggQztr 5ov7ptUILv ZTo (more content not included)... [facility] Consent Formson 01-08-2021 Consent Forms [id number] [facility] Progress Note - Nurseon Progress Note - Nurse PAT review for 01-21-2021 surgery reviewed per anesthesiologist, Dr. Gutierrez- no additional orders received. [Electronically Signed on: 01/07/2021 14:24 EST] Elvira Navarro RN [Verified on: 01/07/2021 14:24 EST] Elvira Navarro RN [facility] .Auto Diff 1on 01-04-2021 [place] % 8 % Normal 03-13 [facility] Comment on above: Performed By: #### 1 [id number], [id number] ####[facility] [place] [facility] (DEFAULT)[address] [place] [address] 64409 Baso Abs# 0.1 x10 Normal 0.0-0.2 [facility] Comment on above: Performed By: #### 1 [id number] ####[facility] [place] [facility] (DEFAULT)[address] [place] [address] 19405 Basophils/100 WBC (Bld) 1.2 % Normal 0.2-2.0 [facility] Comment on above: Performed By: #### 1 [id number], [id number] ####[facility] [place] [facility] (DEFAULT)[address] [place] [address] 68279 Eos Abs# 0.3 x10 Normal 0.0-0.4 [facility] Comment on above: Performed By: #### 1 [id number] ####[facility] [place] [facility] (DEFAULT)[address] [place] [address] 64644 Eosinophils/100 WBC (Bld) 3.6 % Normal 0.9-4.0 [facility] Comment on above: Performed By: #### 1 [id number] ####[facility] [place] [facility] (DEFAULT)[address] [place] [address] 85303 Lymph Abs# 2.6 x10 Normal 1.3-2.9 [facility] Comment on above: Performed By: #### 1 [id number] ####[facility] [place] [facility] (DEFAULT)[address] [place] [address] 27139 Lymphocytes/100 WBC (Bld) 34 % Normal 14-48 [facility] Comment on above: Performed By: #### 1 [id number], [id number], [id number] ####[facility] [place] [facility] (DEFAULT)[address] [place] [address]154 [place] Abs# 0.6 x10 Normal 0.0-0.8 [facility] Comment on above: Performed By: #### 1 [id number], [id number] ####[facility] [place] [facility] (DEFAULT)[address] [place] [address] 30985 Neut Abs# 3.9 x10 Normal 1.5-9.2 [facility] Comment on above: Performed By: #### 1 [id number], [id number], [id number] ####[facility] [place] [facility] (DEFAULT)[address] [place] [address] Neutrophils/100 WBC (Bld) 53 % Normal 44-88 [facility] Comment on above: Performed By: #### 1 [id number], [id number], [id number] ####[facility] [place] [facility] (DEFAULT)[address] [place] [address] Standardon 01-04-2021 eGFR Non AA >60 Invalid Interpretation Code [facility] Comment on above: Performed By: #### 1 [id number], [id number], [id number] ####[facility] [place] [facility] (DEFAULT)[address] [place] [address] eGFR AA >60 Invalid Interpretation Code [facility] Comment on above: Result Comment: Treasury Director medina Kidney disease could be indicated at eGFRs of less than 60 ml/min/1.73m2. Kidney Failure is indicated at less than 15 ml/min/1.73m2 Performed By: #### 1 [id number], [id number], [id number] ####[facility] [place] [facility] (DEFAULT)[address] [place] [address] 89508 Anion gap [Moles/Vol] 12.0 mmol/L Normal 5.0-19.0 [facility] Comment on above: Performed By: #### 1 [id number], [id number], [id number] ####[facility] [place] [facility] (DEFAULT)[address] [place] [address] 50263 Calcium [Mass/Vol] 9.5 mg/dL Normal 8.9-10.3 [facility] Comment on above: Performed By: #### 1 [id number], [id number], [id number] ####[facility] [place] [facility] (DEFAULT)[address] [place] [address] 29386 Chloride [Moles/Vol] 102 mmol/L Normal 101-111 [facility] Comment on above: Performed By: #### 1 [id number], [id number], [id number] ####[facility] [place] [facility] (DEFAULT)[address] [place] [address] 93351 CO2 [Moles/Vol] 27 mmol/L Normal 21-32 [facility] Comment on above: Performed By: #### 1 [id number], [id number], [id number] ####[facility] [place] [facility] (DEFAULT)[address] [place] [address] 50682 Creatinine [Mass/Vol] 0.77 mg/dL Normal 0.60-1.30 [facility] Comment on above: Performed By: #### 1 [id number], [id number], [id number] ####[facility] [place] [facility] (DEFAULT)[address] [place] [address] 99917 Glucose [Mass/Vol] 88.0 mg/dL Normal 74.0-118.0 [facility] Comment on above: Performed By: #### 1 [id number], [id number], [id number] ####[facility] [place] [facility] (DEFAULT)[address] [place] [address] 79579 Osmolality 275 mOsm/L Invalid Interpretation Code [facility] Comment on above: Performed By: #### 1 [id number], [id number], [id number] ####[facility] [place] [facility] (DEFAULT)[address] [place] [address] 53692 Potassium [Moles/Vol] 3.4 mmol/L Low 3.6-5.1 [facility] Comment on above: Performed By: #### 1 [id number], [id number], [id number] ####[facility] [place] [facility] (DEFAULT)[address] [place] [address] 87287 Sodium [Moles/Vol] 138.0 mmol/L Normal 136.0-144.0 [facility] Comment on above: Performed By: #### 1 [id number], [id number], [id number] ####[facility] [place] [facility] (DEFAULT)[address] [place] [address] 85070 Urea nitrogen [Mass/Vol] 13 mg/dL Normal 8-26 [facility] Comment on above: Performed By: #### 1 [id number], [id number], [id number] ####[facility] [place] [facility] (DEFAULT)[address] [place] [address] 53309 Urea nitrogen/Creatinine [Mass ratio] 17.0 mg/mg High 4.6-16.2 [facility] Comment on above: Performed By: #### 1 [id number], [id number], [id number] ####[facility] [place] [facility] (DEFAULT)[address] [place] [address] CBC w/ Auto Diffon 1 Erythrocyte distribution width (RBC) [Ratio] 13.7 % Normal 11.5-15.0 [facility] Comment on above: Performed By: #### 1 [id number], [id number], [id number] ####[facility] [place] [facility] (DEFAULT)[address] [place] [address] Hematocrit (Bld) [Volume fraction] 37.5 % Normal 33.7-40.4 [facility] Comment on above: Performed By: #### 1 [id number], [id number], [id number] ####[facility] [place] [facility] (DEFAULT)[address] [place] [address] Hemoglobin (Bld) [Mass/Vol] 11.7 g/dL Normal 11.3-15.9 [facility] Comment on above: Performed By: #### 1 [id number], [id number], [id number] ####[facility] [place] [facility] (DEFAULT)[address] [place] [address] Instr WBC 7.4 x10 Invalid Interpretation Code [facility] Comment on above: Performed By: #### 1 [id number], [id number], [id number] ####[facility] [place] [facility] (DEFAULT)[address] [place] [address] Man Diff? Auto Normal [facility] Comment on above: Performed By: #### 1 [id number], [id number], [id number] ####[facility] [place] [facility] (DEFAULT)[address] [place] [address] 20261 MCH (RBC) [Entitic mass] 26 pg Normal 24-34 [facility] Comment on above: Performed By: #### 1 [id number], [id number], [id number] ####[facility] [place] [facility] (DEFAULT)[address] [place] [address] 54036 MCHC (RBC) [Mass/Vol] 31 g/dL Normal 26-37 [facility] Comment on above: Performed By: #### 1 [id number], [id number], [id number] ####[facility] [place] [facility] (DEFAULT)[address] [place] [address] MCV (RBC) [Entitic vol] 84 fL Normal 81-100 [facility] Comment on above: Performed By: #### 1 [id number], [id number], [id number] ####[facility] [place] [facility] (DEFAULT)[address] [place] [address] 99655 Platelet 393 x10 Normal 138-427 [facility] Comment on above: Performed By: #### 1 [id number], [id number], [id number] ####[facility] [place] [facility] (DEFAULT)[address] [place] [address] Platelet mean volume (Bld) [Entitic vol] 9.7 fL Normal 6.3-10.2 [facility] Comment on above: Performed By: #### 1 [id number], [id number], [id number] ####[facility] [place] [facility] (DEFAULT)[address] [place] [address] RBC 4.48 x10 Normal 3.70-5.30 [facility] Comment on above: Performed By: #### 1 [id number], [id number], [id number] ####[facility] [place] [facility] (DEFAULT)[address] [place] [address] 86526 WBC 7.4 x10 Normal 3.5-10.5 [facility] Comment on above: Performed By: #### 1 [id number], [id number], [id number] ####[facility] [place] [facility] (DEFAULT)[address] [place] [address] CULTURE, URINE, ROUTINEon CULTURE, URINE, ROUTINE SEE NOTE Abnormal [facility] Comment on above: Result Comment: CULTURE, URINE, ROUTINE Micro Number: [id number] Test Status: Final Specimen Source: Not given Specimen Quality: Adequate Result: Greater than 100,000 CFU/mL of Escherichia coli E.coli INT JOSÉ MIGUEL AMOX/CLAVULANATE S 8 AMPICILLIN R >=32 AMP/SULBACTAM S 8 CEFAZOLIN NR <=4 2 CEFEPIME S <=1 CEFTRIAXONE S <=1 CIPROFLOXACIN S <=0.25 ERTAPENEM S <=0.5 GENTAMICIN S <=1 IMIPENEM S <=0.25 LEVOFLOXACIN S <=0.12 NITROFURANTOIN S <=16 PIP/TAZOBACTAM S <=4 TOBRAMYCIN S <=1 TRIMETHOPRIM/SULFA R >=320 S=Susceptible I=Intermediate R=Resistant * = Not Tested NR = Not Reported NN = See Therapy Comments THERAPY COMMENTS Note 1: For infections other than uncomplicated UTI caused by E. coli, K. pneumoniae or P. mirabilis: Cefazolin is resistant if JOSÉ MIGUEL > or = 8 mcg/mL. (Distinguishing susceptible versus intermediate for isolates with JOSÉ MIGUEL < or = 4 mcg/mL requires additional testing.) Note 2: For uncomplicated UTI caused by E. coli, K. pneumoniae or P. mirabilis: Cefazolin is susceptible if JOSÉ MIGUEL <32 mcg/mL and predicts susceptible to the oral agents cefaclor, cefdinir, cefpodoxime, cefprozil, cefuroxime, cephalexin and loracarbef. Performed By: #### 3 95 #### [address], [address] [place] [id number] [address] Mate: Heraclio Miller MD Vital Signs Date Time Vital Sign Value Performing Clinician Facility 09-29-2022 14:29-0400 Body height 180.34 cm Randy Jaramillo [employer] Phone: [facility] Work Phone: 09-29-2022 14:29-0400 Body mass index (BMI) [Ratio] 31.52 kg/m2 Randy Jaramillo [employer] Work Phone: [facility] Work Phone: 09-29-2022 14:29-0400 Body surface area Derived from formula 2.22 m2 Randy Jaramillo [employer] Work Phone: [facility] DO Work Phone: 09-29-2022 14:29-0400 Body weight 102.51 kg Randy G Furlong Work Phone: [facility] DO Work Phone: 09-29-2022 14:29-0400 Diastolic blood pressure 88 mm[Hg] Randy G Furlong Work Phone: [facility] DO Work Phone: 09-29-2022 14:29-0400 Heart rate 76 /min Randy G Furlong Work Phone: [facility] DO Work Phone: 09-29-2022 14:29-0400 Systolic blood pressure 138 mm[Hg] Randy G Furlong Work Phone: [facility] DO Work Phone: 09-12-2022 14:56-0400 Body height 180.34 cm Randy G Furlong Work Phone: [facility] DO Work Phone: 09-12-2022 14:56-0400 Body mass index (BMI) [Ratio] 30.96 kg/m2 Randy G Furlong Work Phone: [facility] DO Work Phone: 09-12-2022 14:56-0400 Body surface area Derived from formula 2.2 m2 Randy G Furlong Work Phone: [facility] DO Work Phone: 09-12-2022 14:56-0400 Body weight 100.7 kg Randy G Furlong Work Phone: [facility] DO Work Phone: 09-12-2022 14:56-0400 Diastolic blood pressure 88 mm[Hg] Randy G Furlong Work Phone: [facility] DO Work Phone: 09-12-2022 14:56-0400 Heart rate 78 /min Randy G Furlong Work Phone: [facility] DO Work Phone: 09-12-2022 14:56-0400 Systolic blood pressure 132 mm[Hg] Randy G Furlong Work Phone: [facility] DO Work Phone: 08-22-2022 09:47-0400 Diastolic blood pressure 100 mm[Hg] Randy G Furlong Work Phone: [facility] [employer] [facility] DO Work Phone: 08-22-2022 09:47-0400 Systolic blood pressure 142 mm[Hg] Randy G Furlong Work Phone: [facility] [facility] DO Work Phone: 08-22-2022 09:46-0400 Body height 180.34 cm Randy G Furlong Work Phone: [facility] [facility] DO Work Phone: 08-22-2022 09:46-0400 Body mass index (BMI) [Ratio] 30.68 kg/m2 Randy G Furlong Work Phone: [facility] [employer] [facility] 250 DO Work Phone: 08-22-2022 09:46-0400 Body surface area Derived from formula 2.2 m2 Randy G Furlong Work Phone: [facility] [employer] [facility] DO Work Phone: 08-22-2022 09:46-0400 Body weight 99.79 kg Randy G Furlong Work Phone: [facility] [facility] DO Work Phone: 08-22-2022 09:46-0400 Diastolic blood pressure 102 mm[Hg] Randy Jaramillo Furlong Work Phone: [facility] [employer] [facility] DO Work Phone: 08-22-2022 09:46-0400 Heart rate 74 /min Randy G Furlong Work Phone: [facility] [employer] [facility] DO Work Phone: 08-22-2022 09:46-0400 Systolic blood pressure 148 mm[Hg] Randy G Furlong Work Phone: [facility] [employer] [facility] DO Work Phone: 07-21-2022 08:15-0400 Diastolic blood pressure 88 mm[Hg] Randy G Furlong Work Phone: [facility] [employer] 250 DO Work Phone: 07-21-2022 08:15-0400 Systolic blood pressure 122 mm[Hg] Randy G Furlong Work Phone: [facility] [employer] 250 DO Work Phone: 07-21-2022 08:14-0400 Body height 180.34 cm Randy G Furlong Work Phone: [facility] [employer] 250 DO Work Phone: 07-21-2022 08:14-0400 Body mass index (BMI) [Ratio] 30.82 kg/m2 Randy G Furlong Work Phone: [facility] [employer] [facility] DO Work Phone: 07-21-2022 08:14-0400 Body surface area Derived from formula 2.2 m2 Randy G Furlong Work Phone: [facility] [employer] 250 DO Work Phone: 07-21-2022 08:14-0400 Body weight 100.25 kg Randy Jaramillo Furlong Work Phone: [facility] DO Work Phone: 07-21-2022 08:14-0400 Diastolic blood pressure 86 mm[Hg] Randy Jaramillo Furlong Work Phone: [facility] DO Work Phone: 07-21-2022 08:14-0400 Heart rate 59 /min Randy Jaramillo Furlong Work Phone: [facility] DO Work Phone: 07-21-2022 08:14-0400 Systolic blood pressure 132 mm[Hg] Randy Jaramillo Furlong Work Phone: [facility] DO Work Phone: 07-14-2022 14:02-0400 Body temperature 99.32 [degF] Reid Coatspsey [facility] 07-14-2022 14:02-0400 Diastolic blood pressure 86 mm[Hg] Reid Juancarlos [facility] 07-14-2022 14:02-0400 Heart rate 76 /min Reid Bauer [facility] 07-14-2022 14:02-0400 SaO2% (BldA) [Mass fraction] 98 % Reid Bauer [facility] 07-14-2022 14:02-0400 Systolic blood pressure 120 mm[Hg] Reid Bauer [facility] 11-11-2021 19:25-0400 Body height 180.34 cm Jesusita Gee Other [employer] Other 11-11-2021 19:25-0400 Body mass index (BMI) [Ratio] 28.59 kg/m2 Jesusita Gee Other [employer] Other 11-11-2021 19:25-0400 Body temperature 98.1 [degF] Jesusita Gee Other [employer] Other 11-11-2021 19:25-0400 Body weight 92.99 kg Jesusita Gee Other [employer] Other 11-11-2021 19:25-0400 Respiratory rate 18 /min Jesusita Gee Other [employer] Other 11-11-2021 19:25-0400 SaO2% (BldA) [Mass fraction] 96 % Jesusita Gee Other [employer] Other Encounters Encounter Date Encounter Type Care Provider Facility Start: 10-15-2022 Chart Update Randy Normanalanna ng Work Phone: [facility] DO Work Phone: Start: 10-14-2022 ambulatory BRITTANI RUSHING TOM [facility] ty:[id number] Start: 09-29-2022 Patient encounter procedure Randy Normanalannaterry Work Phone: [facility] DO Work Phone: Start: 09-29-2022 ambulatory Starr Brittani Matthewsdiandra Michael Facility: Start: 09-12-[address] [facility] Facility: Start: 09-12-2022 Office outpatient visit 5 minutes Randy Rafi Esteralannaterry Work Phone: [facility] [employer] [facility] DO Work Phone: Start: 08-22-[address] Christopher Harrison II Facility: Start: 08-22-2022 Office outpatient visit 5 minutes Randy Normanalannaterry Work Phone: [facility] DO Work Phone: Start: 08-18-2022 Chart Update Randy Normanalanna terry Work Phone: [facility] DO Work Phone: Start: 08-15-2022 End: 08-16-2022 ambulatory Christopher Harrison Facility:[facility] Start: 08-15-2022 End: 08-15-2022 Patient encounter procedure Christopher Harrison [facility] Start: 07-21-[address] Christopher Harrison II Facility: Start: 07-14-2022 End: 07-15-2022 ambulatory Reid Bauer Facility:[facility] Start: 07-14-2022 End: 07-14-2022 Patient encounter procedure Reid Bauer [facility] Start: 12-27-2021 End: 12-27-[address] DAYANA BASHIR Facility:[facility] Start: 12-13-2021 End: 12-14-[address] KAYE JARQUIN Facility: Start: 11-22-2021 End: 11-22-2021 ambulatory Hua Kraus Reny Facility:[facility] Start: 11-11-2021 End: 11-11-2021 ambulatory Jesusita Gee Other [employer] Other Start: 11-11-2021 Office outpatient visit 15 minutes Jesusita Gee [facility] Start: 08-26-2021 End: 08-28-2021 ambulatory Hua Oglesby Facility:[facility] Start: 08-22-2021 End: 08-22-2021 ambulatory RANDY CALLE Facility:[facility] Start: 08-13-2021 End: 08-13-2021 ambulatory RANDY CALLE Facility:[facility] Start: 01-21-2021 End: 01-21-2021 ambulatory RANDY CALLE Facility:[facility] Start: 01-04-2021 End: 01-05-2021 ambulatory RANDY CALLE Facility: [facility] Start: 03-26-2018 End: 03-26-2018 Patient encounter procedure Ulisses Gonsalez Facility:[facility] Procedures Date Procedure Procedure Detail Performing Clinician Start: 03-02-2005 Hysterectomy Reid mcfarland Excisional biopsy of breast Randy Calle Work Phone: Hysterectomy Randy jaramillo Work Phone: Lipoma of back (disorder) Reid Bauer NEGATED: Highlighted row has not occurred! Total colonoscopy Randy Calle Work Phone: Plan of Treatment Date Care Activity Detail Author Start: 04-08-2023 FUV, Provider: Christopher Harrison, Status: Pen, Time: 2:50 PM FUV, Provider: Christopher Harrison, Status: Pen, Time: 2:50 PM [facility] DO Work Phone: Start: 09-29-2022 FUV, Provider: Brittani Avalos, Status: Pen, Time: 2:30 PM FUV, Provider: Brittani Avalos, Status: Pen, Time: 2:30 PM [facility] DO Work Phone: Start: 09-18-2022 FUV, Provider: Christopher Harrison, Status: Pen, Time: 9:10 AM FUV, Provider: Christopher Harrison, Status: Pen, Time: 9:10 AM [facility] DO Work Phone: Start: 09-12-2022 BPCHECK, Provider: Bertha MURGUIA [employer]SULTANT 1,[id number], Status: Pen, Time: 9:00 AM WILMAN, Provider: ASHLEIGH MURGUIA [employer] SALES CONSULTANT 1,[id number], Status: Pen, Time: 9:00 AM [facility] 250 DO Work Phone: Start: 08-22-2022 WILMAN, Provider: Bertha MURGUIA [employer] SALES CONSULTANT 1,[id number], Status: Pen, Time: 9:00 AM WILMAN, Provider: ASHLEIGH MURGUIA [employer] SALES CONSULTANT 1,[id number], Status: Pen, Time: 9:00 AM [facility] 250 DO Work Phone: Immunizations Immunization Date Immunization Notes Care Provider Fa [facility] 12-06-2020 SARS-CoV-2 (COVID-19 ) mRNA BNT-162b2 vax Reid Bauer [facility] Comment on above: Result Comment: 2022: TPV50 11-15-2020 SARS-CoV-2 (COVID-19 ) mRNA BNT-162b2 vax Reid Bauer [facility] Comment on above: Result Comment: 2022: TPV50 11-20-2019 influenza virus vaccine, unspecified formulation Reid Bauer [facility] Suzanne 11-14-2019 influenza virus vaccine, unspecified formulation Reid Bauer [facility] 11-14-2019 influenza, seasonal, injectable Randy G Furlong Work Phone: [facility] 250 DO Work Phone: 12-13-2018 influenza virus vaccine, unspecified formulation Reid Bauer [facility] 12-13-2018 influenza, seasonal, injectable Randy G Furlong Work Phone: [place] [address] DO Work Phone: 12-10-2017 influenza virus vaccine, unspecified formulation Reid Bauer [facility] 12-10-2017 influenza, injectabl e, quadrivalent, contains preservative Randy G Furlong Work Phone: [place] [address] DO Work Phone: 07-07-2017 tetanus toxoid, redu popeye diphtheria toxoid, and acellular pertussis vaccine, adsorbed Reid Bauer [facility] 01-19-2017 influenza virus vaccine, unspecified formulation Reid Bauer [facility] 01-19-2017 influenza, injectabl e, quadrivalent, contains preservative Randy G Furlong Work Phone: [place] [address] DO Work Phone: 01-07-2016 influenza virus vaccine, unspecified formulation Reid Bauer [facility] 01-07-2016 influenza, injectabl e, quadrivalent, contains preservative Randy G Furlong Work Phone: [place] [address] DO Work Phone: 12-01-2015 influenza virus vaccine, unspecified formulation Randy G Furlong Work Phone: [place] [address] DO Work Phone: 12-01-2015 influenza, unspecifi ed formulation Reid Bauer [facility] 12-27-2014 influenza virus vaccine, unspecified formulation Reid Coatspsey [facility] 12-27-2014 influenza, injectabl e, quadrivalent, contains preservative Randy G Furlong Work Phone: [facility] DO Work Phone: 01-05-2014 influenza virus vaccine, unspecified formulation Reid Bauer [facility] 01-05-2014 influenza, injectabl e, quadrivalent, contains preservative Randy G Furlong [facility] Work Phone: 12-29-2012 influenza virus vaccine, unspecified formulation Reid Juancarlos [facility] 12-29-2012 influenza, seasonal, injectable Randy Normanlong [facility] Work Phone: 01-17-2009 novel [id number], preservative-free, injectable Randy Normanlong Work Phone: [facility] Work Phone: Payers Date Payer Category Payer Self-pay 2018 Unknown [id number] 1970 Unknown [id number] 2.16.84 0.1.576690.3.579.2. 1970 Unknown [id number] 2.16.84 0.1.523779.3.579.2. 1970 Unknown [id number] 2.16.84 0.1.096786.3.579.2. 1970 Unknown [id number] 2.16.84 0.1.240806.3.579.2. 1970 Unknown [id number] 2.16.84 0.1.163097.3.579.2. 1970 Unknown [id number] 2.16.84 0.1.013688.3.579.2. 1970 Unknown [id number] 2.16.84 0.1.252693.3.579.2.718 1970 Unknown [id number] 2.16.84 0.1.434266.3.579.2.593 1970 Unknown [id number] 2.16.84 0.1.270769.3.579.2.593 1970 Unknown [id number] 2.16.8 40.1.048352.3.579.2.727 1970 Unknown [id number] 2.16.8 40.1.388141.3.579.2.727 1970 Unknown [id number] 2.16. 840.1.202063.3.579.2.356 1970 Unknown [id number] 2.16. 840.1.633804.3.579.2.356 1970 Unknown [id number] 2.16. 840.1.302305.3.579.2.356 1970 Unknown [id number] 2.16. 840.1.326638.3.579.2.356 1970 Unknown [id number] 2.16.8 40.1.982939.3.579.2.1068 1959 Private Health Insurance [id number] 2.16.840.1.185211.19 Unknown [id number] 2.16.840. 1.193242.3.579.2.531 Unknown Unknown [id number] Social History Date Type Detail Facility Unknown if ever smoked [employer] [facility] [employer] Other Sex Assigned At [facility] Start: 07-14-2022 Tobacco smoking status Never s moked tobacco (finding) [facility] Tobacco smoking status Never [facility] Social alcohol use Social alcohol use - [facility] 250 DO Work Phone: Functional Status Date Assessment Result Facility 07-14-2022 Functional Status N/A [facility] Clinical Notes 11-19-2021 to 07-14-2022 Note Date & Type Note Facility 07-14-2022 Hospital Discharg e instructions Patient Education 07/14/2022 14:20:40 BMI for Adults BMI for Adults What is BMI? Body mass index (BMI) is a number that is calculated from a person's weight and height. BMI can help estimate how much of a person's weight is composed of fat. BMI does not measure body fat directly. Rather, it is an alternative to procedures that directly measure body fat, which can be difficult and expensive. BMI can help identify people who may be at higher risk for certain medical problems. What are BMI measurements used for? BMI is used as a screening tool to identify possible weight problems. It helps determine whether a person is obese, overweight, a healthy weight, or underweight. BMI is useful for: Identifying a weight problem that may be related to a medical condition or may increase the risk for medical problems. Promoting changes, such as changes in diet and exercise, to help reach a healthy weight. BMI screening can be repeated to see if these changes are working. How is BMI calculated? BMI involves measuring your weight in relation to your height. Both height and weight are measured, and the BMI is calculated from those numbers. This can be done either in [place] or metric measurements. Note that charts and online BMI calculators are available to help you find your BMI quickly and easily without having to do these calculations yourself. To calculate your BMI in [place] measurements: 1.Measure your weight in pounds (lb). 2.Multiply the number of pounds by 703. For example, for a person who weighs 180 lb, multiply that number by 703, which equals 126,540. 3.Measure your height in inches. Then multiply that number by itself to get a measurement called inches squared. For example, for a person who is 70 inches tall, the inches squared measurement is 70 inches x 70 inches, which equals 4,900 inches squared. 4.Divide the total from step 2 (number of lb x 703) by the total from step 3 (inches squared): 126,540 4,900 = 25.8. This is your BMI. To calculate your BMI in metric measurements: 1.Measure your weight in kilograms (kg). 2.Measure your height in meters (m). Then multiply that number by itself to get a measurement called meters squared. For example, for a person who is 1.75 m tall, the meters squared measurement is 1.75 m x 1.75 m, which is equal to 3.1 meters squared. 3.Divide the number of kilograms (your weight) by the meters squared number. In this example: 70 3.1 = 22.6. This is your BMI. What do the results mean? BMI charts are used to identify whether you are underweight, normal weight, overweight, or obese. The following guidelines will be used: Underweight: BMI less than 18.5. Normal weight: BMI between 18.5 and 24.9. Overweight: BMI between 25 and 29.9. Obese: BMI of 30 or above. Keep these notes in mind: Weight includes both fat and muscle, so someone with a muscular build, such as an athlete, may have a BMI that is higher than 24.9. In cases like these, BMI is not an accurate measure of body fat. To determine if excess body fat is the cause of a BMI of 25 or higher, further assessments may need to be done by a health care provider. BMI is usually interpreted in the same way for men and women. Where to find more information For more information about BMI, including tools to quickly calculate your BMI, go to these websites: Centers for Disease Control and Prevention: www.cdc.gov [employer]: www.heart.org National Heart, Lung, and Blood Tensed: www.nhlbi.nih.gov Summary Body mass index (BMI) is a number that is calculated from a person's weight and height. BMI may help estimate how much of a person's weight is composed of fat. BMI can help identify those who may be at higher risk for certain medical problems. BMI can be measured using Iraqi measurements or metric measurements. BMI charts are used to identify whether you are underweight, normal weight, overweight, or obese. This information is not intended to replace advice given to you by your health care provider. Make sure you discuss any questions you have with your health care provider. Document Revised: 11/09/2019 Document Reviewed: 09/16/2019 [employer] Patient Education 2022 [employer]. 07/14/2022 14:20:38 Upper Respiratory Infection, Adult Upper Respiratory Infection, Adult An upper respiratory infection (URI) is a common viral infection of the nose, throat, and upper air passages that lead to the lungs. The most common type of URI is the common cold. URIs usually get better on their own, without medical treatment. What are the causes? A URI is caused by a virus. You may catch a virus by: Breathing in droplets from an infected person's cough or sneeze. Touching something that has been exposed to the virus (is contaminated) and then touching your mouth, nose, or eyes. What increases the risk? You are more likely to get a URI if: You are very young or very old. You have close contact with others, such as at work, school, or a health care facility. You smoke. You have long-term (chronic) heart or lung disease. You have a weakened disease-fighting system (immune system). You have nasal allergies or asthma. You are experiencing a lot of stress. You have poor nutrition. What are the signs or symptoms? A URI usually involves some of the following symptoms: Runny or stuffy (congested) nose. Cough. Sneezing. Sore throat. Headache. Fatigue. Fever. Loss of appetite. Pain in your forehead, behind your eyes, and over your cheekbones (sinus pain). Muscle aches. Redness or irritation of the eyes. Pressure in the ears or face. How is this diagnosed? This condition may be diagnosed based on your medical history and symptoms, and a physical exam. Your health care provider may use a swab to take a mucus sample from your nose (nasal swab). This sample can be tested to determine what virus is causing the illness. How is this treated? URIs usually get better on their own within 7 10 days. Medicines cannot cure URIs, but your health care provider may recommend certain medicines to help relieve symptoms, such as: Gwaq-kzw-atcqkzc cold medicines. Cough suppressants. Coughing is a type of defense against infection that helps to clear the respiratory system, so take these medicines only as recommended by your health care provider. Fever-reducing medicines. Follow these instructions at home: Activity Rest as needed. If you have a fever, stay home from work or school until your fever is gone or until your health care provider says your URI cannot spread to other people (is no longer contagious). Your health care provider may have you wear a face mask to prevent your infection from spreading. Relieving symptoms Gargle with a mixture of salt and water 3 4 times a day or as needed. To make salt water, completely dissolve 1 tsp (3 6 g) of salt in 1 cup (237 mL) of warm water. Use a cool-mist humidifier to add moisture to the air. This can help you breathe more easily. Eating and drinking Drink enough fluid to keep your urine pale yellow. Eat soups and other clear broths. General instructions Take khke-fvv-nontngc and prescription medicines only as told by your health care provider. These include cold medicines, fever reducers, and cough suppressants. Do not use any products that contain nicotine or tobacco. These products include cigarettes, chewing tobacco, and vaping devices, such as e-cigarettes. If you need help quitting, ask your health care provider. Stay away from secondhand smoke. Stay up to date on all immunizations, including the yearly (annual) flu vaccine. Keep all follow-up visits. This is important. How to prevent the spread of infection to others URIs can be contagious. To prevent the infection from spreading: Wash your hands with soap and water for at least 20 seconds. If soap and water are not available, use hand manager erp. Avoid touching your mouth, face, eyes, or nose. Cough or sneeze into a tissue or your sleeve or elbow instead of into your hand or into the air. Contact a health care provider if: You are getting worse instead of better. You have a fever or chills. Your mucus is brown or red. You have yellow or brown discharge coming from your nose. You have pain in your face, especially when you bend forward. You have swollen neck glands. You have pain while swallowing. You have white areas in the back of your throat. Get help right away if: You have shortness of breath that gets worse. You have severe or persistent: ?Headache. ?Ear pain. ?Sinus pain. ?Chest pain. You have chronic lung disease along with any of the following: ?Making high-pitched whistling sounds when you breathe, most often when you breathe out (wheezing). ?Prolonged cough (more than 14 days). ?Coughing up blood. ?A change in your usual mucus. You have a stiff neck. You have changes in your: ?Vision. ?Hearing. ?Thinking. ?Mood. These symptoms may be an emergency. Get help right away. Call 911. Do not wait to see if the symptoms will go away. Do not drive yourself to the hospital. Summary An upper respiratory infection (URI) is a common infection of the nose, throat, and upper air passages that lead to the lungs. A URI is caused by a virus. URIs usually get better on their own within 7 10 days. Medicines cannot cure URIs, but your health care provider may recommend certain medicines to help relieve symptoms. This information is not intended to replace advice given to you by your health care provider. Make sure you discuss any questions you have with your health care provider. Document Revised: 09/18/2021 Document Reviewed: 09/18/2021 [employer] Patient Education 2022 [employer]. Follow Up Care 07/14/2022 13:35:56 With:BRENNON JAMESON, BOBBY Sifuentes Address:Unknown When: Unknown [facility] 11-12-2021 History general N arrative - Reported Type Medical History heart dysrythmia Medical History Night sweats Medical History Insomnia, unspecified type Medical History hypertension Surgical History hysterectomy dec 2003 Surgical History acl reconstruction right knee n ov 2004 Surgical History leg dec 2014 Hospitalization History see above [facility] Other [id number] Evaluation note* Encounter Date Diagnosis Assessment Notes Treatment Notes Treatment Clinical Notes Oct, Contact with and (suspected) exposure to covid-19 (ICD-10 - Z20.822) Today test was performed in office. Results are currently negative. That does not mean that you will not develop COVID or do not currently have a low viral count of COVID. The rapid test works best if symptoms have been over 72 hours and the results can vary if you are asymptomatic There is a higher chance of false negative results to occur if testing is performed too soon. It is recommended that even if results are negative and you have been exposed to someone that has COVID that you follow current CDC recommendations. These can be found at CDC.GOV. Follow up with primary care provider if symptoms persist or do not improve *VIRAL URI HANOUT GIVEN ON OTC TREATMENTS, FOLLOW UP AND WHEN TO SEEK EMERGENCY TREATMENT Oct, Bilateral acute otitis media (ICD-10 - H66.93) Ear infections are often a secondary infection caused from an URI, the flu or allergies. Take medication as directed. Complete all doses, even if you feel better. Tylenol or ibuprofen can help with pain. Warm pack to area for comfort helps as well. Follow up with primary care provider if no improvement of symptoms. 12 Oct, 2021 Bronchitis (ICD-10 - J40) Take medications as directed. Rest and increase fluid intake. Take meds with food to prevent stomach upset. Use inhaler as needed for coughing spells and SOB. It is better to use inhaler a few times a day over the next 2-3 days. Follow up with primary care provider if symptoms do not improve with treatment plan, although it may take a few weeks for the cough to go away [facility] Other 06-28-2022 Note [id number]06-28-2022 [id number] 08-26-[address] [facility] SURGERY Clinical Discharge Summary PERSON INFORMATION Name IKE JONES Age 50 Years 1970 Sex FEMALE Language Iraqi PCP RANDY CALLE Marital Status [facility] Service Ambulatory Surgery Acct# Arrival 08/26/2021 11:01:00 Visit Reason SURGERY- LEFT KNEE SCOPE Acuity LOS 003 04:51 Address: [address] [place] [address] Comment: PROVIDER INFORMATION VITALS INFORMATION Vital Sign Triage Latest Temp Oral Temp Temporal Temp Intravascular Temp Axillary Temp Rectal 02 Sat 100 % 97 % Respiratory Rate Peripheral Pulse Rate Apical Heart Rate Blood Pressure / 90 mmHg / 103 mmHg Comment: MEDICAL INFORMATION Allergy Info: Adhesive Bandage; Demerol Prescriptions Given: acetaminophen-hydrocodone (!-Vassar 5 mg-325 mg oral tablet) 1 tab(s) Oral Every 6 hours as needed as needed for pain., Home script Dr Oglesby 08-26-2021 carvedilol (carvedilol 12.5 mg oral tablet) 1 tab(s) Oral 2 times a day. cyclobenzaprine (cyclobenzaprine 10 mg oral tablet) 1 tab(s) Oral At bedtime as needed for spasm. hydroCHLOROthiazide (hydroCHLOROthiazide 25 mg oral tablet) 1 tab(s) Oral every day. potassium chloride (Potassium Chloride (Nuv-Eiko-Dzu 10) 10 mEq oral tablet, extended release) 1 tab(s) Oral every day. traZODone (traZODone 50 mg oral tablet) 1 tab(s) Oral once a day (at bedtime). Medication List: Medications to Continue That Have Not Changed Other Medications acetaminophen-hydrocodone (!-Vassar 5 mg-325 mg oral tablet) 1 tab(s) Oral Every 6 hours as needed as needed for pain. carvedilol (carvedilol 12.5 mg oral tablet) 1 tab(s) Oral 2 times a day. cyclobenzaprine (cyclobenzaprine 10 mg oral tablet) 1 tab(s) Oral At bedtime as needed for spasm. hydroCHLOROthiazide (hydroCHLOROthiazide 25 mg oral tablet) 1 tab(s) Oral every day. potassium chloride (Potassium Chloride (Nfp-Coul-Obl 10) 10 mEq oral tablet, extended release) 1 tab(s) Oral every day. traZODone (traZODone 50 mg oral tablet) 1 tab(s) Oral once a day (at bedtime). Medications to Continue That Have Not Changed Other Medications acetaminophen-hydrocodone (!-Vassar 5 mg-325 mg oral tablet) 1 tab(s) Oral Every 6 hours as needed as needed for pain. carvedilol (carvedilol 12.5 mg oral tablet) 1 tab(s) Oral 2 times a day. cyclobenzaprine (cyclobenzaprine 10 mg oral tablet) 1 tab(s) Oral At bedtime as needed for spasm. hydroCHLOROthiazide (hydroCHLOROthiazide 25 mg oral tablet) 1 tab(s) Oral every day. potassium chloride (Potassium Chloride (Yns-Qibb-Wiw 10) 10 mEq oral tablet, extended release) 1 tab(s) Oral every day. traZODone (traZODone 50 mg oral tablet) 1 tab(s) Oral once a day (at bedtime). Medications to Continue That Have Not Changed Other Medications acetaminophen-hydrocodone (!-Vassar 5 mg-325 mg oral tablet) 1 tab(s) Oral Every 6 hours as needed as needed for pain. carvedilol (carvedilol 12.5 mg oral tablet) 1 tab(s) Oral 2 times a day. cyclobenzaprine (cyclobenzaprine 10 mg oral tablet) 1 tab(s) Oral At bedtime as needed for spasm. hydroCHLOROthiazide (hydroCHLOROthiazide 25 mg oral tablet) 1 tab(s) Oral every day. potassium chloride (Potassium Chloride (Juy-Bnfw-Hfp 10) 10 mEq oral tablet, extended release) 1 tab(s) Oral every day. traZODone (traZODone 50 mg oral tablet) 1 tab(s) Oral once a day (at bedtime). Comment: Lab and Radiology Results Laboratory or Other Results This Visit (last charted value for your 08/26/2021 visit) No Laboratory or Other Results This Visit DIET & ACTIVITY Patient Activity Level: Patient Diet: Patient Activity Restrictions: DISCHARGE INFORMATION Discharge Disposition: Discharge Location: DEPART REASON INCOMPLETE INFORMATION PATIENT EDUCATION INFORMATION Instructions: [facility] Follow up: DIAGNOSIS Internal derangement of left knee Comment: PHYS DOC [facility]06-16-[address] [facility] SURGERY Clinical Discharge Summary PERSON INFORMATION Name IKE JONES Age 50 Years 1970 Sex FEMALE Language Iraqi PCP RANDY CALLE Marital Status [facility] Service Ambulatory Surgery Acct# Arrival Visit Reason SURGERY - LEFT KNEE SCOPE Acuity LOS 010 03:19 Address: [address] [place] [address] Comment: PROVIDER INFORMATION VITALS INFORMATION Vital Sign Triage Latest Temp Oral Temp Temporal Temp Intravascular Temp Axillary Temp Rectal 02 Sat 99 % 99 % Respiratory Rate Peripheral Pulse Rate Apical Heart Rate Blood Pressure / 111 mmHg / 107 mmHg Comment: MEDICAL INFORMATION Allergy Info: Adhesive Bandage; Demerol Prescriptions Given: cyclobenzaprine (cyclobenzaprine 10 mg oral tablet) 1 tab(s) Oral At bedtime as needed for spasm. hydroCHLOROthiazide (hydroCHLOROthiazide 12.5 mg oral tablet) 1 tab(s) Oral every day. metoprolol (Metoprolol Succinate ER 100 mg oral tablet, extended release) 1 tab(s) Oral every day. potassium chloride (Potassium Chloride (Dyy-Pbvj-Rrb 10) 10 mEq oral tablet, extended release) 1 tab(s) Oral every day. traZODone (traZODone 50 mg oral tablet) 1 tab(s) Oral once a day (at bedtime). Medication List: Medications That Were Updated - Follow Below Instructions Other Medications Updated: potassium chloride (Potassium Chloride (Equ-Qaem-Kbd 10) 10 mEq oral tablet, extended release) 1 tab(s) Oral every day. Medications to Continue That Have Not Changed Other Medications cyclobenzaprine (cyclobenzaprine 10 mg oral tablet) 1 tab(s) Oral At bedtime as needed for spasm. hydroCHLOROthiazide (hydroCHLOROthiazide 12.5 mg oral tablet) 1 tab(s) Oral every day. metoprolol (Metoprolol Succinate ER 100 mg oral tablet, extended release) 1 tab(s) Oral every day. traZODone (traZODone 50 mg oral tablet) 1 tab(s) Oral once a day (at bedtime). Medications That Were Updated - Follow Below Instructions Other Medications Updated: potassium chloride (Potassium Chloride (Lgx-Oauu-Yne 10) 10 mEq oral tablet, extended release) 1 tab(s) Oral every day. Medications to Continue That Have Not Changed Other Medications cyclobenzaprine (cyclobenzaprine 10 mg oral tablet) 1 tab(s) Oral At bedtime as needed for spasm. hydroCHLOROthiazide (hydroCHLOROthiazide 12.5 mg oral tablet) 1 tab(s) Oral every day. metoprolol (Metoprolol Succinate ER 100 mg oral tablet, extended release) 1 tab(s) Oral every day. traZODone (traZODone 50 mg oral tablet) 1 tab(s) Oral once a day (at bedtime). Medications That Were Updated - Follow Below Instructions Other Medications Updated: potassium chloride (Potassium Chloride (Nfo-Mqjh-Bop 10) 10 mEq oral tablet, extended release) 1 tab(s) Oral every day. Medications to Continue That Have Not Changed Other Medications cyclobenzaprine (cyclobenzaprine 10 mg oral tablet) 1 tab(s) Oral At bedtime as needed for spasm. hydroCHLOROthiazide (hydroCHLOROthiazide 12.5 mg oral tablet) 1 tab(s) Oral every day. metoprolol (Metoprolol Succinate ER 100 mg oral tablet, extended release) 1 tab(s) Oral every day. traZODone (traZODone 50 mg oral tablet) 1 tab(s) Oral once a day (at bedtime). Comment: Lab and Radiology Results Laboratory or Other Results This Visit (last charted value for your visit) No Laboratory or Other Results This Visit DIET & ACTIVITY Patient Activity Level: Patient Diet: Patient Activity Restrictions: DISCHARGE INFORMATION Discharge Disposition: Discharge Location: DEPART REASON INCOMPLETE INFORMATION PATIENT EDUCATION INFORMATION Instructions: Follow up: With: Address: When: MYESHA VINSON [address] [place] [address], [place] [address] Business (1) 09/03/2021 9:15 AM With: Address: When: RANDY CALLE [facility] [place] [address] Business (1) Type Location Start [facility] Lab Collection ([facility]) LAB 08/21/2021 4:00 PM 08/21/2021 4:10 PM Confirmed Surgery ([facility]) [facility] Main OR 08/26/2021 1:00 PM 08/26/2021 1:30 PM Confirmed DIAGNOSIS Comment: PHYS DOC [facility]11-24-2021 Note [id number]11-23-2021 [id number] 01-21-[address] [facility] SURGERY Clinical Discharge Summary PERSON INFORMATION Name IKE JONES Age 50 Years 1970 Sex FEMALE Language Iraqi PCP RANDY CALLE Marital Status Med Service Ambulatory Surgery Acct# Arrival 01/21/2021 06:05:01 Visit Reason SURGERY - RIGHT KNEE ARTHROSCOPY Acuity LOS 032 23:00 Address: [place] [address] Comment: PROVIDER INFORMATION VITALS INFORMATION Vital Sign Triage Latest Temp Oral Temp Temporal Temp Intravascular Temp Axillary Temp Rectal 02 Sat 98 % 99 % Respiratory Rate Peripheral Pulse Rate Apical Heart Rate Blood Pressure / 98 mmHg / 74 mmHg Comment: MEDICAL INFORMATION Allergy Info: Adhesive Bandage; Demerol Prescriptions Given: cyclobenzaprine (cyclobenzaprine 10 mg oral tablet) 1 tab(s) Oral At bedtime as needed for spasm. hydroCHLOROthiazide (hydroCHLOROthiazide 12.5 mg oral tablet) 1 tab(s) Oral every day. metoprolol (Metoprolol Succinate ER 100 mg oral tablet, extended release) 1 tab(s) Oral every day. traZODone (traZODone 50 mg oral tablet) 1 tab(s) Oral once a day (at bedtime). Medication List: Medications to Continue That Have Not Changed Other Medications cyclobenzaprine (cyclobenzaprine 10 mg oral tablet) 1 tab(s) Oral At bedtime as needed for spasm. hydroCHLOROthiazide (hydroCHLOROthiazide 12.5 mg oral tablet) 1 tab(s) Oral every day. metoprolol (Metoprolol Succinate ER 100 mg oral tablet, extended release) 1 tab(s) Oral every day. traZODone (traZODone 50 mg oral tablet) 1 tab(s) Oral once a day (at bedtime). Medications to Continue That Have Not Changed Other Medications cyclobenzaprine (cyclobenzaprine 10 mg oral tablet) 1 tab(s) Oral At bedtime as needed for spasm. hydroCHLOROthiazide (hydroCHLOROthiazide 12.5 mg oral tablet) 1 tab(s) Oral every day. metoprolol (Metoprolol Succinate ER 100 mg oral tablet, extended release) 1 tab(s) Oral every day. traZODone (traZODone 50 mg oral tablet) 1 tab(s) Oral once a day (at bedtime). Medications to Continue That Have Not Changed Other Medications cyclobenzaprine (cyclobenzaprine 10 mg oral tablet) 1 tab(s) Oral At bedtime as needed for spasm. hydroCHLOROthiazide (hydroCHLOROthiazide 12.5 mg oral tablet) 1 tab(s) Oral every day. metoprolol (Metoprolol Succinate ER 100 mg oral tablet, extended release) 1 tab(s) Oral every day. traZODone (traZODone 50 mg oral tablet) 1 tab(s) Oral once a day (at bedtime). Comment: Lab and Radiology Results Laboratory or Other Results This Visit (last charted value for your 01/21/2021 visit) No Laboratory or Other Results This Visit DIET & ACTIVITY Patient Activity Level: Patient Diet: Patient Activity Restrictions: DISCHARGE INFORMATION Discharge Disposition: Discharge Location: DEPART REASON INCOMPLETE INFORMATION PATIENT EDUCATION INFORMATION Instructions: Reny- Post Op Knee Arthroscopy ([facility]) Follow up: With: Address: When: MYESHA VINSON [address], [address] [place] [address] Business (1) 01/30/2021 11:00 AM With: Address: When: [place] [address] Business (1) DIAGNOSIS Internal derangement of right knee; Tear of meniscus of right knee Comment: AGUSTIN ROQUE [facility]11-19-2021 NoteSpoke to pt on phone regarding upcoming procedure. pt aware to be here at 6am, NPO after midnight, and need for ride after procedure. pt verbalizes understanding. [Electronically Signed on: 01/18/2021 11:03 EST] Jen Khoury RN [Verified on: 01/18/2021 11:03 EST] Jen [facility]houry [facility] No data available for this section [facility] History of Present illness Narrative* The patient presents for follow-up of essential hypertension. The patient states she has been doingwell with her blood pressure control since the last visit. She has no comorbid illnesses. * Symptoms: denies impaired vision, denies dyspnea, denies chest pain, denies intermittent leg claudication and denies lower extremity edema. Associated symptoms include no headache. * Home monitoring: The patient is not checking blood pressure at home. * Medications: the patient is adherent with her medication regimen. She denies medication side effects. [facility] [address] DO Work Phone: Hospital Discharge instructions No data available for this section [facility] No data available for this section [facility] Summary Purpose Family History No Family History Records FoundUnknown Family Member Name Dates Details No pertinent family history: Mother, Father(V49.89, Z78.9) Status:Active Unknown Family Member Name Dates Details No pertinent family history: Mother, Father(V49.89, Z78.9) Status:Active Unknown Family Member Name Dates Details No pertinent family history: Mother, Father(V49.89, Z78.9) Status:Active Unknown Family Member Name Dates Details No pertinent family history: Mother, Father(V49.89, Z78.9) Status:Active Unknown Family Member Name Dates Details No pertinent family history: Mother, Father(V49.89, Z78.9) Status:Active Unknown Family Member Name Dates Details No pertinent family history: Mother, Father(V49.89, Z78.9) Status:Active Advance Directives No Advanced Directives Records FoundNo Advanced Directives Records FoundNo Advanced Directives Records FoundNo Advanced Directives Records FoundNo Advanced Directives Records FoundNo Advanced Directives Records FoundNo Advanced Directives Records FoundNo Advanced Directives Records FoundNo Advanced Directives Records Found Chief Complaint * Patient in office for bp check due to hypertension/edema. Patient states edema has resolved. Tolerating the med changes well. Patient bp reviewed per r singler rn. * V.O per Dr. Christopher Harrison MD / R Amir RN increase chlorthalidone to 50mg daily and do BP check in 2 weeks. * Patient advised verbalized understanding rx sent * To Dr. Christopher Harrison MD * To Dr. Christopher Dominguez DO in suite * Patient in office for bp check due to hypertension/edema. Patient states edema has resolved. Tolerating the med changes well. Patient bp reviewed per r singler rn. * V.O per Dr. Christopher Harrison MD / R Amir RN increase chlorthalidone to 50mg daily and do BP check in 2 weeks. * Patient advised verbalized understanding rx sent * To Dr. Christopher Harrison MD * To Dr. Christopher Dominguez DO in suite Patient is here today for a blood pressure check ordered by Dr. Christopher Harrison MD due to hypertension. Dr. Chantal Bear MD in suite. Patient is here after 2 week follow up, patient was here for a blood pressure check on 08/22/[address] Christopher Harrison MD increased Chlorthalidone to 50mg once daily. Patient did take all medications this morning. Medication list was updated verbally with patient. She is overall feeling well, denies any cardiac complaints, but does complain of bilateral leg edema. Discussed with Grey Steele RN prior to discharge.* Blood pressure f/u : 'doing fine' * IKE JONES is being seen for a 3 month follow-up of hypertension. Additional Source Comments INFORMATION SOURCE (unrecogn ized section and content) DATE CREATED AUTHOR 04/06/2018 [facility] DATE CREATED AUTHOR AUTHOR'S ORGANIZ ATION 07/28/[address] [facility] Special[facility] DATE CREATED AUTHOR AUTHOR'S ORGANIZ ATION 09/22/2021 [facility] DATE CREATED AUTHOR AUTHOR'S ORGANIZ ATION 12/01/2021 [facility] DATE CREATED AUTHOR AUTHOR'S ORGANIZ ATION 01/04/2022 [facility] DATE CREATED AUTHOR AUTHOR'S ORGANIZ ATION 08/16/2022 [facility] DATE CREATED AUTHOR AUTHOR'S ORGANIZ ATION 09/30/2022 [facility] DATE CREATED AUTHOR AUTHOR'S ORGANIZ ATION 10/01/2022 [employer] DATE CREATED AUTHOR AUTHOR'S ORGANIZ ATION 10/17/2022 [facility] REASON FOR VISIT (unrecogniz ed section and content) OTTO CORAL, SORE THROAT, CO UGH, CONGESTION Patient Care team informatio n (unrecognized section and content) Personnel Name: Jackson WILLETT MD Address: Address: [facility] [place], [facility] [address] [address] Personnel Name: RANDY CALLE DO Address: Address: [address] [place] [address] FOR RECORDS PERTAINING TO PATIENTS WHO ARE OR HAVE BEEN ENROLLED IN A CHEMICAL DEPENDENCY/SUBSTANCEABUSE PROGRAM, SOME INFORMATION MAY BE OMITTED. This clinical summary was aggregated from multiple sources. Caution should be exercised in using it in the provision of clinical care. This summary normalizes information from multiple sources, and as a consequence, information in this document may materially change the coding, format and clinical context of patient data. In addition, data may be omitted in some cases. CLINICAL DECISIONS SHOULD BE BASED ON THE PRIMARY CLINICAL RECORDS. [facility] [employer] [facility]. provides no warranty or guarantee of the accuracy or completeness of information in this document.
== END 2023-03-20 09:56 | disposition home or self-care (01) ==
LOC: MAMMO 09:55
PROVIDERS: PCP Nurse Practitioner Family; Visit Provider Nurse Practitioner Family
DX: R92.8 Other abnormal and inconclusive findings on diagnostic imaging of breast (principal); N63.14 Unspecified lump in the right breast, lower inner quadrant
CPT/HCPCS: 76642; 77065

== ENCOUNTER 2023-03-26 07:28 | Day surgery (SDC) | payer MEDICAID, SELFPAY ==
--- OUTSIDE RECORDS SUMMARY | 2023-03-26 07:30 | XMS_ITS | CCD ---
Author Name Unknown Address [address] [place] [address] Organization [facility] Care Team Providers Care Wood Patternmaker Name Role Phone SunshineUlisses Attending Unavailable Randy Calle Primary Care Unavailable Jesusita Gee Unavailable RANDY CALLE Primary Care Unavailable Reny, Hua Kraus Admitting Unavail able Reny, Hua Kraus Attending Unavail able Reny, Hua Kraus Admitting Unavail able RANDY CALLE Primary Care Unavailable Reny, Hua Kraus Attending Unavail able RANDY CALLE Primary Care Unavailable Paco Giraldo Attending Unavailable RANDY CALLE Primary Care Unavailable [place], Hua Kraus Admitting Unavail able RANDY CALLE Consulting Unavailable Reny, Hua Kraus Attending Unavail able Reny, Hua Kraus Admitting Unavail able RANDY CALLE Primary Care Unavailable Hiral Small Consulting Unavailable Reny, Hua Kraus Attending Unavail able RANDY CALLE Primary Care Unavailable [place], Hua Kraus Admitting Unavail able Reny, Hua Kraus Attending Unavail able Reny, Hua Kraus Admitting Unavail able RANDY CALLE Primary Care Unavailable [place], Hua Kraus Attending Unavail able KRYSTEN, DR ANNE Admitting Unavailable KRYSTEN, DR ANNE Attending Unavailable ALVA, DR RANDY Jaramillo Primary Care Unavailable KRYSTEN, DR ANNE Consulting Unavailable MILKA, DR KAYE Reynoso Admitting Unavailable MILKA, DR KAYE Reynoso Attending Unavailable ALVA, DR RANDY Jaramillo Primary Care Unavailable KRYSTEN, DR ANNE Consulting Unavailable LONGBRANCH, DR HIRAL Meza Consulting Unavailable MILKA, DR KAYE Reynoso Consulting Unavailable Jackson WILLETT Primary Care Physician RANDY CALLE Primary Care Physician Christopher Harrison Attending Unavailable Christopher Harrison Admitting Unavailable Reid Bauer Attending Unavailable Randy Calle Unavailable Unavailable Unavailable Christy WRIGHT, Dr. Christopher Gtz Attending Unavailable Christy WRIGHT, Dr. Christopher Gtz Referring Unavailable Alva, Dr. Randy Meier Primary [facility] Unava ilable Christy II, Dr. Christopher Gtz Attending Unavailable Christy II, Dr. Christopher Gtz Referring Unavailable [facility], Dr. Randy Meier [facility] Unava ilable Christy WRIGHT, Dr. Christopher tGz Attending Unavailable Christy WIRGHT, Dr. Christopher Gtz Referring Unavailable Alva, Dr. Randy Meier [facility] Unava ilambar Michael, Ms. Brittani Cortes Attending Kristan Michael, Ms. Brittani Cortes Referring Yudelkavai darcy Calle, Dr. Randy Meier [facility] Unava ilable BRITTANI AVALOS Attending Unavailable BRITTANI AVALOS Referring Unavailable Alva, Dr. Randy Meier [facility] Unava ilable Allergies Allergy Classification Reported Allergen(s) Allergy Type Date of Onset Reaction(s) Facility (1 source) Meperidine Drug Allergy 9 [facility] Repository (10 sources) Meperidine; Translations: [meperidine] Drug Allergy anaphylaxis, Eruption of skin (disorder) [facility] (1 source) Adhesive bandage; Translations: [Adhesive Bandage] Propensity to adverse reactions (disorder) [facility] Repository (3 sources) Meperidine; Translations: [Demerol] Drug Allergy 3 [facility] Repository (1 source) Adhesive agent Drug allergy (disorder) 5 [facility] Repository Medications Current Medications Medication Drug Class(es) Dates Sig (Normalized) Sig (Original) [id number] 200 actuat albuterol 0.09 mg/actuat metered dose [...] day(s), # 21 cap(s), Refills(s) 0, Pharmacy: [facility]/pharmacy #[id number], 180, cm, 07/14/22 14:05:00 EDT, Height/Length Dosing, 99.7, kg, 07/14/22 14:05:00 EDT, Weight Dosing Start Date: 07/14/22 Stop Date: 07/21/22 Status: Ordered carvedilol 25 mg oral tablet (4 sources) alpha-Adrenergic Bridgette, beta-Adrenergic Bridgette Start: 07-14-2022 carvedilol 25 mg Tab Refills(s) 0 Start Date: 07/14/22 Status: Ordered Coreg Active FeroSul 325 mg oral tablet (3 sources) Start: 07-14-2022 FeroSul 325 mg oral tablet Refills(s) 0 Start Date: 07/14/22 Status: Ordered hydroCHLOROthiazide 12.5 mg / lisinopril 20 mg oral tablet (3 sources) Thiazide Diuretic, Angiotensin Converting Enzyme Inhibitor Start: 07-14-2022 hydrochlorothiazide-l isinopril 12.5 mg-20 mg Tab Refill(s) 0 Start Date: 07/14/22 Status: Ordered Losartan (1 source) Angiotensin 2 Receptor Bridgette Cozaar Active methylPREDNISolone 4 mg oral tablet (1 source) Corticosteroid Start: 11-11-2021 methylPREDNISolone 4 MG as directed Orally Once a day for 6 days Oct, Active traZODone hydrochloride 50 mg oral tablet (10 sources) Serotonin Reuptake Inhibitor Start: 03-30-2020 take [...] Problem Date Documented Date Episodic/Chronic Cardiac dysrhythmias (6 sources) Cardiac arrhythmia 03-30-2020 Chronic Essential hypertension [...] breast] Onset: 12-13-2021 Episodic Other skin disorders (3 sources) Epidermoid cyst of skin 03-30-2020 Episodic [...] covid-19 Z20.822 Onset: 11-11-2021 Resolved: 11-11-2021 Unclassified (3 sources) Excision of lipoma 03-30-2020 Unclassified (6 sources) Never smoked tobacco; Translations: [Never a smoker] Results Test Name Value Interpretation Reference Range Facility CHEMISTRYOrdered By: SYSTEM SYSTEM on 03-20-2023 Anion gap [Moles/Vol] 9 mmol/L Normal 6 - 16 mEq/L [facility] Chem Calcium [Mass/Vol] 9.4 mg/dL Normal 8.9 - 11. 1 mg/dL [facility] Chem Chloride [Moles/Vol] 103 mmol/L Normal 101 - 111 mmol/L [facility] Chem CO2 [Moles/Vol] 32 mmol/L High 21 - 31 mmol/L [facility] Chem Creatinine [Mass/Vol] 0.7 mg/dL Normal 0.5 - 1.3 mg/dL [facility] Chem eGFR 104 mL/min/1.73 m2 Normal >=59mL/mi n/1 .73 m2 [facility] Glucose [Mass/Vol] 88 mg/dL Normal 55 - 199 mg/dL [facility] Potassium [Moles/Vol] 2.8 mmol/L Invalid Interpretation Code 3.5 - 5.3 mmol/L [facility] Chem Sodium [Moles/Vol] 141 mmol/L Normal 135 - 145 mmol/L [facility] Chem Urea nitrogen [Mass/Vol] 18 mg/dL Normal 5 - 21 mg/dL [facility] Chem Urea nitrogen/Creatinine [Mass ratio] 26 mg/mg High 10 - [address] Cardiac Sc[address] 023 CT Cardiac Scoring Normal [facility] Work Phone: Office Visit (Cardiology)on 09-29-2022 Follow-up visit Diagnoses/Problems Assessed Hypertension (401.9) (I10) Edema (782.3) (R60.9) Class 1 obesity with body mass index (BMI) of 31.0 to 31.9 in adult (278.00,V85.31) (E66.9,Z68.31) Orders Class 1 obesity with body mass index (BMI) of 31.0 to 31.9 in adult Healthy Weight Tips; Status:Complete; Done: [id number] Edema, Hypertension Basic Metabolic Panel; Status:Active; Requested for:[id number]; CT Cardiac Scoring; Status:Active; Requested for:[id number]; Patient taking Metformin or Derivatives? : No [...] and no PND. Vitals Vital Signs Recorded: [id number] 02:29PM Heart Rate76, L Radial Mfrkxjya030, LUE, Sitting Cepxsllue04, LUE, Sitting Height5 ft 11 in Gvkfve114 lb BMI Tgcclzbzdv72.52 kg/m2 BSA Calculated2.22 Tobacco Useb) No PHQ-2 #1. Over the last 2 weeks have you felt down, depressed or hopeless? (If yes, answer PHQ-9 below)No PHQ-2 #2. Over the last 2 weeks have you felt little inter (more content not included)... Normal [facility] Tobacco Screening.on 023 Adult depression screening assessment No [facility] 250 DO Work Phone: Fall risk assessment c) Not medically indicated [facility] 250 DO Work Phone: Tobacco use status [facility] b) No -[facility] 250 DO Work Phone: Tobacco Screening.on 023 Tobacco use status [facility] b) No -[facility] 250 DO Work Phone: BMPon 08-15-2022 Anion gap [Moles/Vol] 10 mmol/L Normal 6-16 [facility] Comment on above: Performed By: #### 2 [id number], [id number], [id number] #### [facility] [address] [place] [address] Calcium [Mass/Vol] 9.7 mg/dL Normal 8.9-11.1 [facility] Comment on above: Performed By: #### 2 277974, [id number], [id number] #### [facility] [address] [place] [address] Chloride [Moles/Vol] 102 mmol/L Normal 101-111 [facility] Comment on above: Performed By: #### 2 656885, [id number], [id number] #### [facility] [address] [place] [address] CO2 [Moles/Vol] 29 mmol/L Normal 21-31 [facility] Comment on above: Performed By: #### 2 240134, [id number], [id number] #### [facility] [address] [place] [address] Creatinine [Mass/Vol] 0.7 mg/dL Normal 0.5-1.3 [facility] Comment on above: Performed By: #### 2 172548, [id number], [id number] #### [facility] [address] [place] [address] Glucose [Mass/Vol] 92 mg/dL Normal 55-199 [facility] Comment on above: Result Comment: If t his glucose result represents a fasting glucose, interpretation should refer to the following reference range: 55-99 mg/dL Performed By: #### 2 507511, [id number], [id number] #### [facility] [address] [place] [address] Potassium [Moles/Vol] 2.9 mmol/L Low 3.5-5.3 [facility] Comment on above: Performed By: #### 2 904256, [id number], [id number] #### [facility] [address] [place] [address] Sodium [Moles/Vol] 138 mmol/L Normal 135-145 [facility] Comment on above: Performed By: #### 2 699690, [id number], [id number] #### [facility] [address] [place] [id number] Urea nitrogen [Mass/Vol] 15 mg/dL Normal 5-21 [facility] Comment on above: Performed By: #### 2 343207, [id number], [id number] #### [facility] [address] [place] [address] Urea nitrogen/Creatinine [Mass ratio] 21 No Units High 10-20 [facility] Comment on above: Performed By: #### 2 670242, [id number], [id number] #### [facility] [address] [place] [address] BNPon 08-15-2022 Int Ctr BNP Pass Normal [facility] Comment on above: Performed By: #### 2 537132, [id number], [id number] #### [facility] [address] [place] [address] Natriuretic peptide B (Bld) [Mass/Vol] 23 pg/mL Normal 5-80 [facility] Comment on above: Performed By: #### 2 425899, [id number], [id number] #### [facility] [address] [place] [address] CHEMISTRYOrdered By: SYSTEM SYSTEM on 08-15-2022 Anion gap [Moles/Vol] 10 mmol/L Normal 6 - 16 mEq/L FT Remisol Calcium [Mass/Vol] 9.7 mg/dL Normal 8.9 - 11. 1 mg/dL FT Remisol Chloride [Moles/Vol] 102 mmol/L Normal 101 - 111 mmol/L [facility] Creatinine [Mass/Vol] 0.7 mg/dL Normal 0.5 - 1.3 mg/dL [facility] Remisol GFR/1.73 sq M.predicted among non-blacks MDRD (S/P/Bld) [Vol rate/Area] 105 mL/min/1.73 m2 Normal >=59mL/min/1 .73 m2 [facility] Chem S Glucose [Mass/Vol] 92 mg/dL Normal 55 - 199 mg/dL [facility] Remisol Potassium [Moles/Vol] 2.9 mmol/L Low 3.5 - 5.3 mmol/L [facility] Remisol Sodium [Moles/Vol] 138 mmol/L Normal 135 - 145 mmol/L [facility] Remisol Urea nitrogen [Mass/Vol] 15 mg/dL Normal 5 - 21 mg/dL [facility] Remisol Urea nitrogen/Creatinine [Mass ratio] 21 mg/mg High 10 - 20 [facility] Remisol Consent for Treatmenton 07-31 Consent for Treatment [id number] 0CD:127 Normal [facility] - Chemistry and C hemistry - challengeOrdered By: SYSTEM SYSTEM on 08-15-2022 CO2 [Moles/Vol] 29 mmol/L Normal 21-31 [facility]o yuliet [facility] - Chemistry and C hemistry - challengeOrdered By: Jackson Bettencourt on 08-15-2022 Natriuretic peptide B (Bld) [Mass/Vol] 23 pg/mL Normal 5-80 [facility] HemeManS S No Panel Informationon 08-15 105 {mL/min/1.73_m2} Normal >=59 -[facility] 250 DO Work Phone: Comment on above: Chronic kidney disea se could be indicated at eGFR's of less than 60 mL/min/1.73m2. Kidney failure is indicated at less than 15 mL/min/1.73m2. 10 {mEq/L} Normal 6-16 [facility] 250 DO Work Phone: 102 mmol/L Normal 101-111 [facility] 250 DO Work Phone: 2.9 mmol/L below low threshold 3.5-5.3 [facility] [employer] 250 DO Work Phone: 138 mmol/L Normal 135-145 [facility] Work Phone: 9.7 mg/dL Normal 8.9-11.1 [facility] ServicesCal[facility] SystemsO[facility] 250 DO Work Phone: 21 {No_Units} above high threshold 10-20 [facility] ServicesCal[facility] [place] [address] DO Work Phone: 0.7 mg/dL Normal 0.5-1.3 [facility] [employer] DO Work Phone: 15 mg/dL Normal 5-21 [facility] [employer] DO Work Phone: 92 mg/dL Normal 55-199 [facility] [employer] DO Work Phone: Comment on above: If this glucose resu lt represents a fasting glucose, interpretation should refer to the following reference range: 55-99 mg/dL Pass Normal [place] [address] DO Work Phone: Physician Orderon 08-15-2022 Physician Order [id number] 0CD:127 Normal [facility] eGFRon 08-15-2022 GFR/1.73 sq M.predicted among non-blacks MDRD (S/P/Bld) [Vol rate/Area] 105 mL/min/1.73 m2 Normal >=59 [facility] Comment on above: Order Comment: Order added by Discern Expert. Result Comment: Exhaust And Muffler Repairer medina kidney disease could be indicated at eGFR's of less than 60 mL/min/1.73m2. Kidney failure is indicated at less than 15 mL/min/1.73m2. Performed By: #### 2 732725, [id number], [id number] #### [facility] [address] [place] [address] Office Visit (Cardiology)on 07-21-2022 Follow-up visit Diagnoses/Problems [...] BNP; Status:Active - Retrospective Authorization; Requested for:04Aug2022; [employer] 2 Maintenance IO EKG Electrocardiogram- 12 Lead; Status:Complete; Done: 21Jul2022 Hypertension Start: Chlorthalidone 25 MG Oral Tablet; TAKE 1 TABLET Daily Start: Lisinopril 20 MG Oral Tablet; TAKE 1 TABLET DAILY Start: Metoprolol Succinate ER 100 MG Oral Tablet Extended Release 24 Hour; Take 1 tablet daily SocHx: Never a smoker Tobacco Use Screening; Status:Complete; Done: 21Jul2022 Tobacco Use Screening; Status:Complete; Done: 21Jul2022 Unlinked Stop: Coreg 25 MG Oral Tablet [...] negative for complaint. Vitals Vital Signs Recorded: 21Jul2022 08:15AMRecorded: 21Jul2022 08:14AM Nnmdarwd730, RUE, Zxdhnmy453, LUE, Sitting Mipqmcmse60, RUE, Akwyppu43, LUE, Sitting Heart Rate59, Apical Height5 ft 11 in Wjokoh959 lb BMI Mxlvwbslcp31.82 kg/m2 BSA Calculated2.2 Tobacco Useb) No PHQ-2 [...] Neck: ne (more content not included)... Normal [employer] Tobacco Screening.on 023 Adult depression screening assessment No [employer] 250 DO Work Phone: Fall risk assessment a) No falls within the last year [facility] 250 DO Work Phone: Tobacco use status CPHS b) No [employer] 250 DO Work Phone: Family Medicine Office/Clini c Noteon 07-14-2022 Family Medicine Office/Clinic Note Chief Complaint EST migraine ,congestion cough, chest HPI Staff 51 year old female presents with migraine and body aches started with migraine thursday afternoon and then it was both head [...] day(s), # 21 cap(s), Refills(s) 0, Pharmacy: [facility]/pharmacy #[id number], 180, cm, 07/14/22 14:05:00 EDT, Height/Length [...] diphtheria/pertussis, riri (more content not included)... Normal [facility] Comment on above: Result Comment: Elec tronically Signed By: Juancarlos CONTE, Reid Mcgregor\.br\Date and Time Signed: 07/14/22 14:20 EDT Patient Educationon 05-15-20 23 Patient Education Infectious Disease Upper Respiratory Infection, [...] to help relieve symptoms, such as: ? Opsd-uga-ebcsfhp cold medicines. ? Cough suppressants. Coughing is [...] other clear broths. General instructions ? Take euxf-myd-ebuaajc and prescription medicines only as told by [...] and water are not available, use hand x ray service engineer. ? Avoid touching your mouth, face, eyes, [...] Get help (more content not included)... Normal [facility] PAP ACOG PANEL 2: 30 to 65on 01-03-2022 . . Normal [facility] Comment on above: Result Comment: Perf ormed at: WB Performed By: #### 4 [id number] #### [facility] [address] [address] [address] Daniel Mcgregor Age Gdln ACOG Testing 30-65 Normal [facility] Comment on above: Performed By: #### 4 [id number] #### [facility] [address] [address] [address] Daniel Mcgregor DIAGNOSIS: Comment Normal [facility] Comment on above: Result Comment: NEGA TIVE FOR INTRAEPITHELIAL LESION OR MALIGNANCY. Performed at: WB Performed By: #### 4 [id number] #### [facility] [address] [address] [address] Daniel Mcgregor HPV Aptima Negative Normal Negative [facility] Comment on above: Result Comment: This nucleic acid amplification test detects fourteen high-risk HPV types (16,18,31,33,35,39,45,51,52,56,58,59,66,68) without differentiation. Performed at: =G Performed By: #### 4 [id number] #### [facility] [address] [address] [address] Daniel Mcgregor HPV Genotype Reflex Comment Normal [facility] Comment on above: Result Comment: Crit eria not met, HPV Genotype not performed. Performed at: WB Performed By: #### 4 [id number] #### [facility] [address] [address] [address] Daniel Mcgregor Methodology: Comment Normal [facility] Comment on above: Result Comment: This liquid based ThinPrep(R) pap test was screened with the use of an image guided system. Performed at: WB Performed By: #### 4 [id number] #### [facility] [address] [place] [address] Dr. Daniel Mcgregor Note: Comment Normal [facility] Comment on above: Result Comment: The Pap smear is a screening test designed to aid in the detection of premalignant and malignant conditions of the uterine cervix. It is not a diagnostic procedure and should not be used as the sole means of detecting cervical cancer. Both false-positive and false-negative reports do occur. . Performed at: WB Performed By: #### 4 [id number] #### [facility] [address] [place] [address] Dr. Daniel Mcgregor Performed by: Comment Normal [facility] Comment on above: Result Comment: Roxann Ambriz, Quality Assurance Representative (ASCP) Performed at: WB Performed By: #### 4 [id number] #### [facility] [address] [place] [address] Dr. Daniel Mcgregor Specimen adequacy: Comment Normal [facility] Comment on above: Result Comment: Sati sfactory for evaluation. No endocervical component is identified. Performed at: WB Performed By: #### 4 [id number] #### [facility] [address] [place] [address] Dr. Daniel Mcgregor MG MAMM SCREEN 3D VONNIE CADon 12-13-2021 MG MAMM SCREEN 3D VONNIE CAD Patient: IKE JONES Exam Date: 12/13/2021 : 1970 Gender:F Ordering : DR KAYE JARQUIN Admission #: [id number] Family : DR DAYANA BASHIR . Order #: [id number] CLICK HERE TO VIEW EXAM RADIOLOGY REPORT [...] Treatments None Family Cancers None LOCATION: [facility] BREAST COMPOSITION: Heterogeneously dense,which may obscure small [...] MD on 12/13/2021 at 08:39 Normal [facility] COVID Quick Testingon 2021 Result Negative Advestigo Other BASIC METABOLIC PANELon 08-31 BUN/CREATININE RATIO NOT APPLICABLE Normal 6-22 [facility] Comment on above: Performed By: #### 5 616, 43207, 03442 #### [facility] [address], [address] [place] [address] Head Of Partner Development: Heraclio Miller MD Calcium [Mass/Vol] 9.7 mg/dL Normal 8.6-10.4 [facility] Comment on above: Performed By: #### 5 616, 94816, 00591 #### [facility] [place] [address] Head Of Partner Development: Heraclio Miller MD Chloride [Moles/Vol] 103 mmol/L Normal 98-110 [facility] Comment on above: Performed By: #### 5 616, 23738, 07839 #### [facility] [place] [address] Head Of Partner Development: Heraclio Miller MD CO2 [Moles/Vol] 30 mmol/L Normal 20-32 [facility] Comment on above: Performed By: #### 5 616, 22776, 68774 #### [facility] [place] [id number] Head Of Partner Development: Heraclio Miller MD Creatinine [Mass/Vol] 0.77 mg/dL Normal 0.50-1.03 [facility] Comment on above: Performed By: #### 5 616, , 09000 #### [facility] [place] [address] Head Of Partner Development: Heraclio Miller MD GFR/1.73 sq M.predicted among non-blacks MDRD (S/P/Bld) [Vol rate/Area] 94 mL/min/{1.73_m2} Normal > OR = 60 [facility] Comment on above: Result Comment: The eGFR is based on the CKD-EPI 2020 equation. To calculate the new eGFR from a previous Creatinine or Cystatin C result, go to https://www.kidney.org/professionals/ kdoqi/gfr%5Fcalculator Performed By: #### 5 616, , #### [facility] [place] [address] Head Of Partner Development: Heraclio Miller MD Glucose [Mass/Vol] 91 mg/dL Normal 65-99 [facility] Comment on above: Result Comment: Fasting reference interval Performed By: #### 5 616, , 16128 #### [facility] [place] [address] Head Of Partner Development: Heraclio Miller MD Potassium [Moles/Vol] 3.4 mmol/L Low 3.5-5.3 [facility] Comment on above: Performed By: #### 5 616, , 03291 #### [facility] [place] [address] Head Of Partner Development: Heraclio Miller MD Sodium [Moles/Vol] 140 mmol/L Normal 135-146 [facility] Comment on above: Performed By: #### 5 616, , 33928 #### [facility] [place] [address] Head Of Partner Development: Heraclio Miller MD Urea nitrogen [Mass/Vol] 11 mg/dL Normal 7-25 [facility] Comment on above: Performed By: #### 5 616, , 59276 #### [facility] [address], [address] [place] [address] Head Of Partner Development: Heraclio Miller MD IRON, TIBC AND FERRITIN MARUE [place] 09-21-2021 % SATURATION 10 % (calc) Low 16-45 [facility] Comment on above: Order Comment: FASTI NG:YES FASTING: YES Performed By: #### 5 616, , #### [facility] [address], [address] [place] [address] Head Of Partner Development: Heraclio Miller MD Ferritin [Mass/Vol] 11 ng/mL Low 16-232 [facility] Comment on above: Order Comment: FASTI NG:YES FASTING: YES Performed By: #### 5 616, , #### [facility] [address], [address] [place] [address] Head Of Partner Development: Heraclio Miller MD IRON BINDING CAPACITY 542 mcg/dL (calc) High 250-450 [facility] Comment on above: Order Comment: FASTI NG:YES FASTING: YES Performed By: #### 5 616, , 59705 #### [facility] [address], [address] [place] [address] Head Of Partner Development: Heraclio Miller MD IRON, TOTAL 54 mcg/dL Normal 45-160 [facility] Comment on above: Order Comment: FASTI NG:YES FASTING: YES Performed By: #### 5 616, 36359, 32948 #### [facility] [address], [address] [place] [address] Head Of Partner Development: Heraclio Miller MD TSH W/REFLEX TO FT4on 2021 TSH W/REFLEX TO FT4 3.86 mIU/L Normal [facility] Comment on above: Result Comment: Refe rence Range > or = 20 Years 0.40-4.50 Ranges First trimester 0.26-2.66 Second trimester 0.55-2.73 Third trimester 0.43-2.91 Performed By: #### 5 616, 77685, 42153 #### [facility] [address], [address] [place] [id number] Head Of Partner Development: Heraclio Miller MD Consent Formson 09-09-2021 Consent Forms [id number] 0OTGTIFF [facility] Coding Summaryon 09-03-2021 Coding Summary [employer] 64 KvgtoaghQDi7rXv+PGhlYW Q+OT9PSTJeF40muXOzuO1P I0dEVB9JCDDIBCLVVS2BRY 5vwGT5GDzqZ0DljeTg QkqmgXHgCF02PCd1VZC2eH ajLByvwJ2odLNuK6n9DaTn FI51kN42VXddCYEtLqR0En ZpbjsgbWFy P9aiBrBymPGtUkv+PHRhYm xlIHdpZHRoPScxMDAlJyBz xVcvOK9dZu2rTUJhLNJsdA xhcHNlOiBj d4woEAJvTWzbRD9ctZdmM5 JgqLE5KGJws5b4No28iNX+ XVGrHFS0rOquAJyir315Fq Hip5qdTSI9 hQCoOWknJHC2G23zb1Q0HP RnXMDqHKY2zZW1uF4ezXgf mxekJ1CpmBGgHkM2QHQ7xW NxnR0ibBpl sqzxmO5jNcb+D42CCZ1JLX BXFT0UJgd9V7ZzLfkcdHR+ TB46KEHzNG38eJEuiHMqz9 qcpDr7WzGb LYQeXHR1pGzjBEvkx8MsET VmT66yaAHht9W4GRGgpFzn mHMwKoPzgFR7bR5gUMfzit ifd4bsxcut Nvvwc2pxxa63aY39M92zLP zoNFOoMKS6RPRuTNKvwKtb lv1naU5eYq3+SAiuf3xhg2 oaoGm4KmEj UPNjruHqcPprMPQ2l5MiDb 80A9CzzHngy7YsRbv3id02 tFKzp5E7cWP2ODcfKBRsmM 7lEJcpLpG7 HLVlLkOoeY40hMNiZYxqDi 6hvKkvdWwjQZ3pIDAyrlgg WLHkkA3fGLLbmTFghCfdPC 4wNTBpbjtm y709LaOrWQY7QCMnlFIdQ7 VquE0fAiLjDKDmQNErC2Cg iDKgKIccD232QMccSeW1ET KdoiGhM1Mo QLRxpFxfIjF4k9D5Hd7Az7 YxfjdbXAG4LHghCZD1QoM0 HoKyJqO6U6WqAve3XOGsgO hwWC5gH9Qb SMQduwymytycjYY6UTSsHL JxeM54tSXbTJtpLc1un1C5 i709CEQrOUVesA06Lv9eiJ ogMTBwdCBU jH1cncbyk5xggefiNmLaGV YsVQo8TWd0WEXrjPdiWqNb DMD4QuF5IGX8aPUfjI1tkG qmpmibnL1m Oyc+R22vuO3uXME4XCS4ou syZTDgdbUoKJ08JL35Y7Wb PjwvdGFibGU+PGRpdiBzdH fmSO7rWqXv w8anc7NfINraD5CaRVEpJS crGgf2IXJyMHH0kQD5xL4j PYKsYZpqd5U2jOT7M7Yznb Iqwa5tv7kx WPKoSQuyR24kqEQnn1U5WA MrzSB8EISkoRumEsZadH12 Oyc+LBQtvJdxr4FgZqqpe3 hlv6auxIz0 DcNjYRXvmhBhnLicFLS3s8 OlWw19K44oLLfxKKTxEPBt SKYlPQGnxSeepw6uyA6pYl 8+PGNvbCB3 qZQ5aB9kTHXzLwD1JYjfC6 83SvEuyHRrOmisf1vor6rw wYa1WyQeEQRauaLtrVevTH N8a1GeUz52 T07iEJhjBQTiPXBwSWSxHH RgjKnmuz1okY9wGp4+PC9j a5haxm81nR18aHP+PHRkIH L9lBfhJAya PBXptX8kYAdlToK2XEBmXa QirO22iXTzXQqjLb8dgEwx sKazSK9dECBstxhgj738Gj Enc3jqZQSb bUTeDTiaOVK6H65uw7G0FR AqLYAwMJD2iQZ8xX1yvPsh bjogbGVmdDsgdmVydGljYW vsXWxuS679 IHRvcDsnPlBhdGllbnQgTm JfBIc7R7UnSqx1WNCttBpa SO1prEFvQArtZg9lnFcdfM cjJY4wIBJg tcjzm129DsCzm2mkWVQvrY WhGUyoJBH4R52nj3N2EYXa RGYzPOZ8nFD6aU3bqBvizj ogbGVmdDsg nfDvvUyjWMwdVDrnM488NL RvcDsnPkJpcnRoIERhdGU6 LV47GK16mETur5L6bDJ2T0 BhZGRpbmct divktPO6INOuBVHjhU45Tc 0krZpnCy9mQCHfEYZ8MWUm bGEiF4KveI6aKoHzEKAaTX SzC7DtfDNa DBsxW289XSzmDfB8HWJbxp JmZ7PzXJFbbVfeMlW4e5P1 Vx8PI0H3ZV55DZ18sHGwb5 V0eZB9Q5Ou IWKpmhiyhxrpgTF5BNAoUJ LhfP70Xg2amNveOc1uHAKj HXD7NCBlnLOdT7SyoX4jSt AjMDAwMDAw T7IzjUKuVLmpO347VPesXb T7XSEfrgYjO5HqDRJjoMls MkY2f3R9Km4BWGd0PG68EP 59uILlw1C2 sZR8W9IiIJMkydrspjgxhI D7HEHtGFQffL44Ow3yjWat Wh3lNHZyUMG7XBNdoZEdI4 TwpB2aObTw LVOmEKDaP1PobCTbATisV8 47FVpzAkS1SXLihbCvT5Qs QYBmlWsfIjB5o1D8Tg1OZS ObWG82JXW7 kOX0LK08TZ80L6RnBiprgH FibGU+PHRhYmxlIHdpZHRo YOmeGUXpCnZkvKhmAP8jJk 9yZGVyLWNv wWzdrDTqSuElr7xpYKDhFU gqDS8voDpoT8LzwQV9UWGr s5m3Ak04A22rC1EdjUZ+PG PrcYP8tIL4 qU2cWoGlYeD1HKrvG167Cg IqtDMmEbjqb7viw5sofBc5 DcH7SNZeocEabSsnCAL0c3 KlRg96Q97m IHdpZHRoPSIxNSUiIHZhbG ofss3jyR4bIl6+PGNvbCB3 fYR0fL3vOxTkUhA9HMtfN8 49InRvcCIv Xxefs4bmj7mkcZv5TpSqZR YffiJlpQsaGIT0f5RlIb65 V4XjhRiow1YvUnb3gx49cX Dzh9O8dNU4 X7VlEWQlohubtDUmcBkyBB 0ySONnojwbWIQaqJ4gODTy E3a6CkHwHtY6KVvbO4Ptlr I4MCKbcBWp ZUuxZQU9B34rm2W4VTXiWS DoLNR5tQI3kE6ivDyoiluh bGVmdDsgdmVydGljYWwtYW vyM091QFAs zCbwGIGomA1jIXJamHAcyG xtBP9eTNAurqggIplKCK0Q TiwgRUxJWkFCRVRIIEFOTj wvdGQ+PHRk CVS6mCwmQFmpXRSryF3rHI MzV1a7GuUkAkP7LBrzX5Ei XAJjuihySe34cN1uIgVqUj R0PZacG1Uu uaK4GXZzrAKqFPniDHV3M5 7qv1T4IOUbXMOdNXZ8tWV0 mA4qrRwgplzytDCgaMxpno VydGljYWwt JXvmJ767IPSfpGxsEgO6Dm NhDrC7CtQ8G6FgKie4FHZp mLvoQG5pgRZtEZsqAj5klS jfuQioTG7q NFXiashhGFYjgN7kLPTuoQ YlpHtxUO0hTNMiyrfxs551 RfFfYVE9LXGnaBHiC4QkxR 9yOiAjMDAw AIVlN6MfwFWcSLjpV352NL huIvE5RQLnmqWtA3QlOIZl qYtvMgW3o0O5Mk73QPTBQB FyczwvdGQ+ PKItEQO0oAxlGRcbPHLfzY 7rKWEtI9m3AvQpCkX9JXzv T7BnVNLrcoccEn20uC7dQh XhHbT7SNkt U3DvceI1YYDovVRjRDskNN U8V78iv0T3SCNfFEAbXKO7 mBP5rW3smQkbuejjjTAnbU sgdmVydGlj MJdkLPskV003AXLghWyiMv ZFTUFMRTwvdGQ+PHRkIHN0 uTcpBJgnACGhaS9gDGUsP6 f5AjKcVhU4 PRllV9NdRMQvwzctWl53aO 3hKyEjLhI2WYvgM3AezeT5 ISFmwSLbOJdvTPQ5G78rq0 Y5MDRnTRSs QFD7xNE3nK7ahGsdnsainT VmdDsgdmVydGljYWwtYWxp C270XECclAeaXlKyxFJViW JjIZW4ML29 OE84R4MjLmfykAUunAT+PH RhYmxlIHdpZHRoPScxMDAl KzUyuLavLD1dJu5sJFKdVL NvbGxhcHNl DvHmy8klDQRgBBswCG4uhJ eaF2XisKE0MUJls8z0Og23 O93vJ7UjpCM+UVKlrAL2mA H2sJ2cXyWc MaP4XAkkC693RdUizVZdCh fwe8onv9vzvFf8QsEkBUAq jbJlcHtoOXS0w1AoRq92O0 9sIHdpZHRo UTIjVKGzHURbyHicji0dxO 9wIi8+YLFegML5xHV1sR5e VaGkWdQ2RUfqY191FhXgmW WaCsdeA54u P5LzwXH+WMRiTkg7KRCxhX utWQ2rrZKmUXczNp4wBRK3 UsCkFvAsRYpuA9SySTLpqe ctcmlnaHQ6 SELoPEFfuL23Ta4rbTjgSp 1wZOKcLKN0ZKRsiIAlE3Vr eM3yJgJsCWPbYZAfZ2IdwN SvLFttR422 LIfqFeO4DVMshtAlP0UrXS WsgPuqZzP9d4N6Td6TlQsq iYMuEU0xCmHdGWk9F8ZwHp u4EUFoyGbd KU7nuCPsAZuiBg2dvCadtS wpAR5iETOnobybr226BlLh t0njGNCkhYJcNDjwGPL2S3 4wc5I7DDFe FWWzCBD9kQE4uE3gxJadhn ogbGVmdDsgdmVydGljYWwt OEytN593LFZziDhlDfMQOe t1M8RyBeu7 YGDvhFnzFC5suMEgMSusRi 0hlIrlxVlvVK8fUFXfjdnv i352AgIun6keKIFoxHCyDM luRCZ2Y38i d0S2SOYhKJMvPCT4cVY9mF 1hbGlnbjogbGVmdDsgdmVy jGuhEJilOLnxQ737MGTdzJ fkGn4CGch6 L8WqGfw5FQUwaMpiED0fjL NnDQhfCm3wkBppoDjyJR9p RKLxtatpf526WtDeu3iiEZ EwcHQgVGlt CIB4F18pv0T0UVCbYJWjDV W8iLL8kK6paWdftdepyJJc dDsgdmVydGljYWwtYWxpZ2 46IHRvcDsn PlBheWVyOjwvdGQ+PC90cj 15Q1AjEgavLmn4NFFmJJS0 gHN0xO1ePTDeAGdno4R8iE J8N6MrrjXv ci1 (more content not included)... [facility] Coding Queryon 08-27-2021 Coding Query Documentation Requir [...] DO [Transcribed on: 08/27/2021 07:54 EDT] [facility] Consent Formson 08-27-2021 Consent Forms [id number] 0OTGTIFF [facility] Telemetry Stripson Telemetry Strips [id number] 0OTGTIFF [facility] Anesthesia Noteon 08-26-2021 Anesthesia Note Patient: IKE [...] on: 08/26/2021 14:58 EDT] Christopher Cadet MD [facility] Anesthesia Note Patient: IKE JONES Age: 50 [...] = 1 tab(s), PO, Daily Potassium Chloride (Inf-Zhqh-Ifm 10) 10 mEq oral tablet, extended release 10 mEq = 1 tab(s), PO, Daily traZODone 50 mg oral tablet 50 mg = 1 tab(s), PO, Once a day (at bedtime) Problem list (past medical history): All Problems Cardiac dysrhythmia / SNOMED CT [id number] / Confirmed HTN (hypertension) / SNOMED CT [id number] / Confirmed Histories Family History: No family history items have been selected or recorded. Procedure history: Arthroscopy of knee ([id number]) on 01/21/2021 at 50 Years. Comments: 01/21/2021 8:41 Carolina Pickering RN right Abdominal hysterectomy ([id number]). Arthroscopy of knee ([id number]). Lipoma ([id number]). Comments: 01/04/2021 11:19 OSKAR Becker RN, Milana A excision History of tonsillectomy (3727644085). ACL - Anterior cruciate ligament rupture (230867423). Comments: 08/12/2021 13:15 Carolina Heller RN repair with cadavor Social History Electronic Cigarette/Vaping Assessment Electronic Cigarette [...] Oriented. Review / Management Laboratory Results Plan [place] [employer]#(ASA ) physical status classification: Class II. Anesthetic Preoperative Plan Anesthesia: General. . Anesthetic plan, risks, benefits, and alternatives discussed with the patient and/or family. Patient verbalized understanding. Informed consent was given. Anesthetic technique: General anesthesia, Patient presented with diastolic HTN; this was also noted on her PST chart. Had a lengthy discussion with her regarding this. Her primary care ([facility]) recently changed her from Toprol to Coreg... Patient has reported no changes and has noted her diastolics have been above 100 for months . We discussed treating her with some labetolol here with the hope of moving forward today with her surgery. We also discussed putting a better long-term plan in place regarding her hypertension. Her and her both seemed to express understanding. . [Electronically Signed on: 08/26/2021 13:29 EDT] Christopher Cadet MD [Verified on: 08/26/2021 13:29 EDT] Christopher Cadet MD [facility] Coding Summaryon 08-26-2021 Coding Summary HTMLBase 64 MayiwfjlNSk6nLg+PGhlYW Q+CD5IDDLtE59orOBdpB9Y N0lGFX8TGSKVULOONT0JDR 7ncKB7TWarC4TmoxWb UvygaEJwYQ37XBs4UKB6iQ hkJNkrmH7yrZVnF6m1VtZm AK19lU57YGtvWZRyOlI8Si ZpbjsgbWFy J1keIgRzqNDmSpy+PHRhYm xlIHdpZHRoPScxMDAlJyBz wAglJO4lXa5uARVrANPhgM xhcHNlOiBj b7uxKAReQBmpJA3mvZddL3 QvgMA9ESDoz7p9Id02sUI+ KIXnPRB7bYjfMTxpl597Uk Hab4fvFHH9 lBXvJSslUEQ5G80te0G8IQ MhVYIhSEG1dKF4xN7npXcv fdtoB1CufIImThT0JPA6sP TolH0btDso iawcbT2mRin+Q32HJL1VWD FJTN8EIgo5Z8KqMuueeIY+ CZ61MCKwZE86nFUvhJMum0 kekHd3XyOt AFYsZWU0bMooUNdja3MsJJ RdX84ieGFps8C5LVJduOhk wQOnYsWkxOD5iZ8uSKdhqp oyp3iiubkz Wzncn6jidr59pM16C42oTD izSMSyGDG2ZHIuWMPanFwl uu5svB0wGd2+YTlbq9xrz0 pwvZn0MmUd EHKlfrRbjYtlMXC2g5IrTe 32R3QfpRlxm7PmQyv9ar54 kDLpw6D1tVP2CUzuPAFucM 3fYAevHnH1 IRSrGvLmxB79wWWkYSydQn 3jcYbwmCikUO1bWFAxljah QLRunJ8vUYNycRJxqTrjPC 4wNTBpbjtm k420GlCaEHH8NDAdmURtS0 AlaD1oJnVsORNgRBFzA6Bv iRUtKIozS377FDrmAwW6OJ MylgJoY0Da LPMtlIgoHeW5p6W2Qb0Fk6 BeffjxCQS7ULkzAYO3KiB5 AdMoZnI1L2KrElh7UUGraG biXI8nS9Jd MOOkoskbfaguaIS9AHGcIU UlwK72dTFfSKixVw1ba8Y5 q405SEKzJWAvnN04Wy2rdW ogMTBwdCBU oU1vbvpsv3hvbpmbBcUmVW TyMEw6LZk3LDWjtRjgTdUx PGF7CmU1KRA4iSUihR2olK qobtsilH2f Oyc+C90lyG8kNRM1AYK5tk tsFBTonoWfRW24OX38J5Nn PjwvdGFibGU+PGRpdiBzdH jlQZ5oSuUj d4ecj0GzZRxaA4QgPDDaQR mtBta0CJAfSLS5iFA8gQ4a UQNxLTtrw3U6aES5U2Tyxm Jhko8sv2zd HRSpSYyuS00ssRGil3I9OI SjzQQ5BFJspUoaOnZgyJ02 Oyc+DVLdmMsda5RzBqtvh4 oxw6bwsUf4 HgOhZNHsxqWliZkvKJF3f8 FrBv13Z32zLHghBWNhWXMn VKXpRVZzuGlnsa3omO4uEo 8+PGNvbCB3 yLI8uM7iXJVrXrG5VSkuW8 02LhZjfILpFhpds6gvn6jk oOd2HeYhEHRaguFruSguVZ Q3e0QqLy82 V13hFRseKCMoBXQvBOLkFT KpxXjypj5tdH5gKu3+PC9j p2hpeo92rM63bYT+PHRkIH D2xAjnJYwv QOWfgO2pJLffShX1RRVcQa FjdZ28rTIhTSalJq7xqIgq rAerZU3mVYKzneszk527Rj Jsw9kcNZCu aNIjHJdtQQW6T00zb1W7EO CpZRPgBJB7pIT2xS0glVub bjogbGVmdDsgdmVydGljYW bsQShyH243 IHRvcDsnPlBhdGllbnQgTm YkLZx8Z4NrKgv1MWQioInm AR8pzYIkPEmiOx0gpKkihL rfLR4kTHUk ystqh461VtDzw9aqHYRqxX RoOTlyTYB2F48on0Q9GQMn DJVuBAU4eEL5pS1xdMaooq ogbGVmdDsg qjDsgTklDHqnXAsxV572CT RvcDsnPkJpcnRoIERhdGU6 IP85DS51yVTnd6K1zSV2L8 BhZGRpbmct oqpczKH2OPMvDIMzuP41Vj 2iyPgaVy5jIICjZYO9OMDi yGYnV7TssK9oLtNsFVEkKU ZbT2AhvLVb KFviS066SXfjPcV9BDJjes HzM1ZwKQTwnCmsCvB4p7Q6 Hu4DQ5W7MK42LV52bKSfk8 D1pBJ6S6Vn NSNpwfravgnjeNI5CUXkWN TkfQ94Xo4toXmcIs8zBVMt IST2XTAskOIpV7FloL2fKz AjMDAwMDAw I2DwsVDeYNhkI091EIkqJg O5YEXthsJhL0OwHHMxzUld AbJ7j1Z5Ls0ZWVt3WK62BR 94cNItp7I0 hPT3N5XxBTTfllkcwwowsN F7GJCzZSTnkT77Fa9vlWxv Ca9yAEKlDIC2NLOjhAEvA7 PvsZ6zIyRt NCHkUWAqM7IxsFIcKHdaU9 80FFhgXvV5DDHolrOlJ1Ux HSIyhFxhQhD9b4Q5Sv7CWR PcUP67WEY4 gTP0KX21UM74E5ZbNdzcmQ FibGU+PHRhYmxlIHdpZHRo UCdrCZScXgFzkWdbQO6rQe 9yZGVyLWNv wQwnfHNuJgIhw3bxETNaQQ xuLW8rjMjhK8YsjLY3HFRm g2o1Ui67I47wM5RjgNS+PG InlFI0uBM6 dM5hAgPmKsE8NIdpU028Xp JncXSaQthxp7ptx8gutZx6 YsR0FNFokuVnaVgoGYL2p4 HsRx03I06l IHdpZHRoPSIxNSUiIHZhbG mpob3lfE0jUf3+PGNvbCB3 qPA1oD7xZeVpJaI1GQdvF0 49InRvcCIv Isuch3lgo9bbbNr3NoKzER EznjWecIivMUV7v2ZvTi88 R3VziBmlu5QpKvf2fz72sS Ojo8P0sRQ2 K9XnOIMsmfmmqZPdsNfbVC 8gVYQayxshEFUleU1kMIDg F2k3UjUhIuR1JJyeL8Bzwa Y7XTQnuSKz FMheVXN0Q80rk7W0NWQySK EvPFI2nML7hE8sxLpfigir bGVmdDsgdmVydGljYWwtYW vvO453YOTk zXroBXOaaS5rOYDwzNViiG zqNY5fHDAoiiirPysIZX6Q TiwgRUxJWkFCRVRIIEFOTj wvdGQ+PHRk LOM4nYutKQdbQPGhdM2wVJ MvK9i4KhXoNpA1JLtkJ9Ps SYStbdqaKr49zE9mVbSrHg K1YHsgR7Vb lwI3FDIlsZNdXWdgEJA8L2 8lt9B7FSFbDVLkVVJ8jJX2 zS2ipKehjqjdkYCpoXarlq VydGljYWwt NDbnO838MXIneCuaWeF1Ep KhPpI9EwC3K6ChEry3CTSg mQdhVN5wpARtNSaxCi8lmW snyNrbXJ1x IEWcfbcvAFLqyI1tLQEkmW RkjRewOA1qQMIsvztql125 GiHwPQL9OWTonJVzR2LyfU 9yOiAjMDAw XZHzF3ZncMMzBPwbB269EB dpRwM8DSNkcbHfR2FmAXNj hOxmFlY6q3J8Fw22FTYSVB FyczwvdGQ+ WJPcYOL4mMmjCPpnRQWdiO 9aCWOxU1d3KwGfWqJ0GQbw S5SoOROcigwjZz62nE8pUy PmHkE4QGhb C0UnulU5ZHVfjKJmWOosOT B2P84yq9K1OUZlWLRwNFJ0 oEN4sG8jxQdvfxdqgKNyhJ sgdmVydGlj EXmiQDplB830SBQmaLlyHn ZFTUFMRTwvdGQ+PHRkIHN0 qIjcFHtmDKYxtJ2iPXHbR5 o0XgSoFzT4 DSlvY3QyWQZzvxtsOy82bF 4qAuCyFvP3RSsoE0SvjvO2 NRSqfUEuANdhLIV9O30vk9 G1XQJeKOHf TDL5eBY6iO8wpAyimmbjtL VmdDsgdmVydGljYWwtYWxp P225KKPzjLcmYu0IFI04SY 13Y8BiAoih dGFibGU+PHRhYmxlIHdpZH NvBOwdPFDrXoHoeUzxEA2w Ak2lDBPoZEKpwPlgpMLzWu Kgj3dmQBMd QKhiRS0ioMjfE2GljPX5QE Jhn6y5Sv94U43tX7HchIE+ JPOpcSX5bIO2xZ2tGiZaSd R6IQfxT150 BiGlxTJfIfvyv1icr7aypE l3MgUeDLIwyeSrjSdxTEM1 s4UoQg74W98xMTprSNMxYY IyMCUiIHZh rYuaoh0jsM4jAk0+PGNvbC P8cFV7fD7mTzXpIvM7AWif B518BiLseMDbXortT14fK9 JvdXA+PHRy Arj5BIHeyAzoVA7riYVsNM tmIe1oHXS2YeXmJiYbNMlx L2MhUSFlprptlvgfvOA1PG VtGTZjkK55 Uy4mbIhySc5eFNBeOAR2EV IsvIKbP0UkqJ1jRwWnDIVg NALoW8PfoVNfWCgaY709TA yeIlD9ZQOp vnVqQ8ZbEYVvcMpkKgC6t4 F9Ib4VfInciIDfFI0bDlZa QWi8U5YmXwk5COTlhIdfHS 0ncGFkZGlu Lr8aaCbjtPxeHA0fYKDxzm uly818RcYnv1mdJRWkkLYi LIobZTW0C81oe6M6CNFuZH LaPPP5gSL6 hY3pfTqppysusYZydCkgkz WciCjbDOrzYUusO219XXFe uWiyDxHJKlg2V2IuWjb9PL WnmEndTG7w vLNhBAbvRi9nhAjemXgxIM 3iSDYxfcfoa760JhQnu5wa PXIaoSEwOFhuGJL5W38uj8 X9WSDwAFNw MKX7mKG7wC3tkVrilwsbiY VmdDsgdmVydGljYWwtYWxp A280TYMszXebFs3HXlh1N4 UpRrq2DYOx iPovMA0mlSFaRZsnQb4nbH ymsXapBG4uRAHlfvziv942 DnTja4mrRFOcbIBsFGdxLG E5H74un0L9 FVFyXHRsSSI6jXF9cN3gtH lnbjogbGVmdDsgdmVydGlj EJlyXXdaN271XNWfmTqcSh BheWVyOjwv dGQ+JH21hg35Y8YrZimzRc i8XGOsBRE6dCC9bC9dWWQa GKvlp0T6yQX8B3TvzmIicw 4oh1zsZKUq ZTo (more content not included)... Normal [facility] Inpatient Patient Summaryon 08-26-2021 Inpatient Patient Summary [place] [id number] Patient Discharge Instructions Name: LAKIA JONESROSS RIVERA : 1970 Patient Address: [address] [place] [address] Primary Care Provider: Name: RANDY CALLE After you are discharged if you find you have any questions, please, call [phone] ext [phone] to speak to a nurse. Discharge Diagnosis: Internal derangement of left knee Prescription Information: If you have been given a prescription for narcotics, seek immediate medical attention if you have any difficulty breathing or any sudden status changes such as confusion and sleepiness. If you or anyone you know is experiencing suicidal thoughts, mental health, alcohol and/or drug addiction problems; contact the [facility] 22/09 Crisis Hotline -Text 4HOPE to 678112. If you received any narcotics, sedation, or [...] business decisions or sign any legal documents [facility] would like to thank you for [...] Have Not Changed Other Medications acetaminophen-hydrocod one (!-[place] 5 mg-325 mg oral tablet) 1 tab(s) Oral Every 6 hours as needed as needed for pain. carvedilol (carvedilol 12.5 mg oral tablet) 1 tab(s) Oral 2 times a day. cyclobenzaprine (cyclobenzaprine 10 mg oral tablet) 1 tab(s) Oral At bedtime as needed for spasm. hydroCHLOROthiazide (hydroCHLOROthiazide 25 mg oral tablet) 1 tab(s) Oral every day. potassium chloride (Potassium Chloride (Baf-Jkly-Zld 10) 10 mEq oral tablet, extended release) [...] you can keep with you. acetaminophen-hydrocod one (!-[place] 5 mg-325 mg oral tablet) 1 tab(s) [...] Oral every day. potassium chloride (Potassium Chloride (Wcq-Xqdu-Zev 10) 10 mEq oral tablet, extended release) [...] flow is (more content not included)... Normal [facility] MAGR Intraoperative Recordon 08-26-2021 MAGR Intraoperative Record MAGR Intra-Op Record Summary Primary Physician: Hua Oglesby DO Finalized Date/Time: 08/26/21 15:08:30 Pt. Name: NICCHEN IKEROSS Garduno/Sex: 1970 FEMALE Med Rec #: [id number] Physician: Hua Oglesby DO Financial #: [id number] Pt. Type: D Room/Bed: / Admit/Disch: 08/26/21 [...] Case Attendee Hua Oglesby William MD Baumer, Erica RN Andrew DO Role Performed Surgeon - Primary Anesthesiologist of Processing Inspector Record Time In 08/26/21 14:02:00 08/26/21 14:02:00 08/26/21 14:02:00 Time Out 08/26/21 14:56:00 08/26/21 14:56:00 08/26/21 14:56:00 Procedure Arthroscopy Knee(Left) Arthroscopy Knee(Left) Arthroscopy Knee(Left) Last Modified By: Jeannine Eid RN, Erica RN Baumer, Erica RN 08/26/21 14:54:01 08/26/21 14:54:01 08/26/21 14:54:01 Entry 4 Entry 5 Entry 6 Case Attendee Dorothy Archer RN TRANSITION TEACHER, Laxmi Navarrete CST, Shanique BROWN Role Performed Processing Inspector Crystalizer Tender Scrub Personnel Time In 08/26/21 14:02:00 08/26/21 [...] Primary Surgeon Hua Oglesby DO Surgeon Comment LEFT KNEE ARTHROSCOPY, Start 08/26/21 [...] By Jeannine Eid (more content not included)... [facility] Record MAGR PACU Record Summary Primary Physician: Hua Oglesby DO Finalized Date/Time: 08/26/21 15:37:09 Pt. Name: IKE JONES/Sex: 1970 FEMALE Med Rec #: [id number] Physician: Hua Oglesby DO Financial #: [id number] Pt. Type: D Room/Bed: / Admit/Disch: 08/26/21 11:01:00 - Institution: PACU Case Times MAGR Entry 1 In PACU I 08/26/21 14:56:00 Discharge from PACU 08/26/21 15:30:00 I Last Modified By: Elvira Navarro RN 08/26/21 15:37:04 Finalized By: Elvira Navarro RN Document Signatures Signed By: Elvira Navarro RN 08/26/21 15:37 [facility] MAGR Postoperative Recordon 08-26-2021 MAGR Postoperative Record MAGR Phase II Record Summary Primary Physician: Hua Oglesby DO Finalized Date/Time: 08/26/21 16:25:07 Pt. Name: IKE JONES/Sex: 1970 FEMALE Med Rec #: [id number] Physician: Hua Oglesby DO Financial #: [id number] Pt. Type: D Room/Bed: / Admit/Disch: 08/26/21 [...] Signed By: Elvira Navarro RN 08/26/21 16:25 [facility] MAGR Preoperative Recordon 0 08-26-2021 MAGR Preoperative Record MAGR Pre-Op Record Summary Primary Physician: Hua Oglesby DO Finalized Date/Time: 08/26/21 15:18:23 Pt. Name: IKE JONES/Sex: 1970 FEMALE Med Rec #: [id number] Physician: Hua Oglesby DO Financial #: [id number] Pt. Type: D Room/Bed: / Admit/Disch: 08/26/21 [...] Signed By: Elvira Navarro RN 08/26/21 15:18 Normal [facility] Operative Report - Surgeon/P aster 08-26-2021 Operative [...] Oglesby DO [Verified on: 08/26/2021 14:45 EDT] Hua Oglesby DO Please note the addendum to the [...] on: 08/30/2021 13:39 EDT] Hua Oglesby DO [facility] Patient Handouton 08-26-2021 Patient Handout POST OPERATIVE [...] be done to rule of a DVT. Normal [facility] Progress Note - Nurseon 08-01 Progress Note - Nurse Pre-op call done, instructed to arrive @ 1100 on 08-26-21, NPO after midnight, and need for ride to and from hospital-verbalized understanding. [Electronically Signed on: 08/23/2021 13:36 EDT] Carolina Painter RN [Verified on: 08/23/2021 13:36 EDT] Carolina Painter RN [facility] 2019 Novel Coronavirus (CoVI D-19), KYLE LCon 08-22-2021 SARS-CoV-2 (COVID-19) RNA KYLE+probe Ql (Unsp spec) Not detected Invalid Interpretation Code Not Detected [facility] Comment on above: Order Comment: [id number] [facility]# [phone] Result Comment: This nucleic acid amplification test was developed and its performance characteristics determined by [employer]. Nucleic acid amplification tests include RT- PCR [...] detected) result in this assay. Performed At: [address] [id number] José Manuel Chery PhD Ph:[id number] Performed By: #### [id number] ####[place] [address] Coding Summaryon 08-15-2021 Coding Summary [employer]Base 64 OlvdnaeqEBt0vEb+PGhlYW Q+FF2XVJMyU02ciQCahO7V A3xHCE6BMVLONFAOID0ZNF 3haWA1UIixB5AjfxSo UoclxPWcJE19YZw3BYL7wG ldSBkoaA3wmYQaV9z8HjYu YT02nL01CYomWVTwKyO2Po ZpbjsgbWFy Z1kyViXaxUJdQpu+PHRhYm xlIHdpZHRoPScxMDAlJyBz dNukVC2nXn0mVPWjXGAedP xhcHNlOiBj k1scHJBbGBmxOL0xkVroJ4 SvgXL2BZIav0c6Og19dRF+ JEOzWZB1pRscPHwdj011Tc Jew4cpHZY8 qNIoSQmoQJE0L82ev8E8QJ FfWAIwNNX1oSI3uQ4gnMyt swnmX3DulSLyQgH1WJN6nW FgvC5grZut rnlozB5gLoc+J41UUA7ODJ PXRV2MZev7M2JnSpzqoCF+ JE05QRPjAI65dUObtMKhd1 nahVb5LmFw CASsGPJ4gPlyQJkvw7CnDP HgD08yrAVzt3H5VMZnjVft qBLmTpNhwKO4rB2dGMwkef ezk2wbqwnq Bnbgi9vymu96vX39S12tAL rtBIBqRKP3HHLkVBPbaTkt pa5omG7oNd6+CTksy0tlg5 ubuNc2GfXn JYDmxkCrpVikFTB9g0HsVs 09Q9XhbJoxk8DlKos1cq58 cVXuy0L5tJP6YInmARAaxE 3vVNdhCnC5 AZYbRfNkkV81qQIpKBtdKm 7ttOzrfCmbGC2sUTYydqdk RCMslI1iHFNveJNgaEfaSS 4wNTBpbjtm n684IlEwRKR0RRBaqJAnD8 WpbO3iZlDtQFRyPKUaM3Jz lGIaAHioC168YMvmUrP3KS DbenKsM1Uz HLXspRunIpJ5d0T4Yz2Ey9 OfrmfeDEM4TRmqFNF6BcH1 OmSsIqW6Y1WfZco3OEYynP kwTD3zT6Uk CBCztombeqqhsYR8AHZxMK SvgY83sRKyTIfwPu7qs0O0 q806SBLnMRCafL43Fo5hhE ogMTBwdCBU tH8dpbvqi9hoflbxFxUeWV ClWFb3BUc5PKIicOapXuMv YAZ1XrB3TAZ4bDTnoD8dgP trlnkadL3w Oyc+C34xkG9hPME7RMG8zt fgGKHfxiNgLE89CT04J8Kk PjwvdGFibGU+PGRpdiBzdH htBM9fJaPu g9crb2EgBRlfV2XjPMKcIV vbYbc0MBGhAIB4cHW3tM2o ZHFvWSqql3Q3qTZ2U2Srlk Uhom4zc1ln GWEtLLqyX23jfQLpd2I6RU GqsLC4DWNsaAlgPxHhqV51 Oyc+ISBtoRzmr7ChSnrah7 dhs7aptVq7 WqVmOUStloAgwPzxVVG4g8 HiPf36F28mFNowDVGtXNJx KDKoKCFjuZzrgh8ukH0bZz 8+PGNvbCB3 aTF5dL7zPCLvPsK6HEfjE2 57YxQfmTYgPmwsc2dar1mv rJz9JzHnKLWljlMerVmvLL S8k7GqBg61 K02cDFyhCJFpPLZrSHOkEH DefDgydu7rrY4oOr6+PC9j y7zoqd68qH17aED+PHRkIH R9pAetERkf QEWyuV7hWFwiVkC4FKBqMv AqqE10fZJqRZjpGv1uxHyy kSksZL2bHXDdcyoqd359Am Wzv6puGBEr pNBvJSotCJM3I63cv7D2CV FrTZNtOOS5iXI5mV1koPmf bjogbGVmdDsgdmVydGljYW ljUMxzD172 IHRvcDsnPlBhdGllbnQgTm IzVOt5A1IqGky4GRVvmYpn WS0vzPXoXLxtVy5ruKgnsH ruYH2aBXEs rridh307QpDtd8rsAFIhlT ScGTcwAMG5U20dx3E6ETIo SVZdHJQ1iOB8zV4qlQugfc ogbGVmdDsg crNdtYsjXJqnFXdgI072DD RvcDsnPkJpcnRoIERhdGU6 NY24VE03lHSdj1T3kDW5X2 BhZGRpbmct weuujFR4EQJyOVHmeA06Xl 7ynCmwAo8eFAReIOR7HQDz zMBsG4YjdR9mHuGePDNpHY ZkI4QxxBVl OUtpR613RZzhOuI4NGRgtp NsI3BbVXQzqHojIqY5d4A3 Ug4QD1I5AE88GF04lYVvp1 L7mEL4V4Lu DFHuldmzscypsWG9UYCyAC QmeN00Pp9nuWyiBg9sTXRq GKA6DFVefGCmJ9NvqB8lFv AjMDAwMDAw I0TrcNPkPEwzS460IDjdPm B6JDFkgvDvC5XjMHGabBpt AqI5t5T2Si8UJQx5ED43OR 49xRPeu7S8 bGL8S3UbPJBscpaatjeasJ D0KPQyEFHkiL90Xk1nxOjb Cq1oLJGmBIB9EQGjcXSnJ6 OgrA5oHlTm QLYsSYBnY8UhuVPjQEcxA2 46UEagDrR5DZWjykCfY4Sw TYUpaNnbIcV7j1A4Xh6ZXI NxWD38AGI3 pJC9XR53DK42W8LwSyndzQ FibGU+PHRhYmxlIHdpZHRo MDskBJTrUcFheReuYW5iAw 9yZGVyLWNv lSkhyCDvQaXmd3bvGULeMK cdXL2scPfbY4McuRQ0EWSa f2o2Yf01V65pK9IobZG+PG VjoAS3vJC4 vS6qIuQwWrQ4QKwlF401Rb ScvIIqBowor2rsn4jflPr5 QtK7SWAplpSnyFbgVGM2k6 PvUi66E49y IHdpZHRoPSIxNSUiIHZhbG zblx9pkW0vGp3+PGNvbCB3 eCE9cE5oNoHjAjW6UPxuI1 49InRvcCIv Tiyvx8lba3ghiZo7XqEgSN BhfwYtfMovSTC1d9EvMh52 O0NgwZubf1VvIdg0vb16tI Zkv2D7dQM2 T4LrIZHoeyazoOPcqMawNV 6zXMOxrgbqQNSwhM9iUFNt B1k3RbBtPiZ0KAtcU2Ncvy A2JXIdqKCd ODofVGX8G15ez8V9KWVwVA FsSFZ9cRH2mP9vfOzjxmip bGVmdDsgdmVydGljYWwtYW cxV493LRYr cWocJUUnsC9mGWLzySAcxP gxZQ0lULMulrqeOhyANF0Z TiwgRUxJWkFCRVRIIEFOTj wvdGQ+PHRk RDR0kVlePLgqLERpjP7qGS XeP8k1IeMaNxN2BSbwL0Uc LRWfhyjmYr03kU5tIaPdLb X3RNccB8Fv rqP3HBIikZUyPDqlESD6J5 0vw7A5TYDlAGUuBBJ9jWY0 vE8bhAkphklruQHlwLrtmc VydGljYWwt CDndI447AFSrnHbfGxS9Df SzQzM0FzL0Y1ZwLgx0IQHv zPsvJD1obAMrAAtyDf1ciT mfsSrxFY7p NJAscdfbIUNcbY4tLNUofO WybAyuXT1hGEEbknqcj895 DjKxMXP6ZBCjaYZkP8BewM 9yOiAjMDAw EOUzP7UneLMwJSlnX614YT cqBpK4TXPdfzRtU4FzLTCh qXptPwS1s0I4By93BUSJRO FyczwvdGQ+ OKTdPOQ7bKvmOSiuDVLejF 3jODItS5q9XsByKaF4KKnu Q6GaCVCwniulIh56wN1vYm LdKyC3SIjx F3AfyyF1CSYjcQYbXTmfJO W8Z00ge3M5IYLyYQJsZFY2 gXZ2uU6glIpihckrtLSsqY sgdmVydGlj BIxoBDdoM928GFGroNwfWe ZFTUFMRTwvdGQ+PHRkIHN0 yOreIZedYDAcuF3qZKLsN5 a2TaSvQlL6 UIbmI7BwZUDazjgiIp93pT 7dUsVzHcF8XAtsS7UpiuM4 VAYsnZCxAYdyULS9Q68pn0 E9NSHpSNJk VRP0sLA1sC5fjWdzlkpciN VmdDsgdmVydGljYWwtYWxp Q257MMBboVzgPc5MPE69YP 43I6HlBjmg dGFibGU+PHRhYmxlIHdpZH LcYXfcBWOuKfSpiVadTH7i Go0sQVKsHUPkuLsfoLFaJx Ohj8bhPHNo QRptDQ3qvTzmM2IvyRU2HC Byi3m0Fi41B28vB0FgwYR+ YLVktLW9hGC3sE6nVlNoIn X7JXfuF422 GqYvrPXiAxljw8jap5tzrN t8DiKqSCDegiIbbJsgFAY4 w4OsTt88D42nQBacHEWjZX IyMCUiIHZh aItksc6kkR4jMh4+PGNvbC J9vJL3mP3xIeWqDwW7FBrd V180UqLodQWfCowyD48sK0 JvdXA+PHRy Pge7QHCnoStpAK9jqWCnXP bsWk7gSVT3PeCiKbEwBXhl E9UhWEOqedycuesurXE0TC DeJJMfhK54 Cb9pvNfwGm3rDLYnPGR5JR AdzCWaP5GssL0cHePyIKSi RVFuI0HghVOmEMmlO748TG arZrZ6ZDRm qcGfY3SdAITxnJczTyT2n0 V4Ro7CoBbbhSJxMK6uQmXl NHo8R3LpUft2LCLysPudRT 0ncGFkZGlu Ar6cbObctIalAG7qACXstu qwp880PwFgg3coMMHdzJCm OJwxCFY7C37fl9E9LBReZS TyMLX7oKB0 oY8fpHyxbgrmeJUyiEjyvw RlcAomDUxrFSkbL695TYAa sIcdEeBJKaw8D0RcEhp4VU UmsMctZS0d wRYsJYbbKx3noFrqxLvoYQ 3yZSYyumnqj020KyTww4ur FDYqyHBmCDebLSR8M21rd4 X2GKZgURPs VJM9hEC7lI9uaHmpovfqfF VmdDsgdmVydGljYWwtYWxp G264TKVhcSmkMt3AVai3A7 MzSxk9BGKf nVgxXG3lzROzFLqkKz5otP ntzJivVX2oPJWsmctzy612 FrAnx8tdTKRacOCxAUgaST N6J67tm2K3 BVRwBVLlFPX1pXS3yE8xrV lnbjogbGVmdDsgdmVydGlj ZWrjHNppK616KBCudCmxXo BheWVyOjwv dGQ+ZU89tc78A1CeZgjuYo r3ZNVlUCP8bRJ0cD6qTPIc HGzro6L3iMC8K7RazvWiqv 0ci3tgFVJh ZTo (more content not included)... Normal [facility] Inpatient Patient Summaryon 08-15-2021 [place] [address] Patient Discharge Instructions Name: NICCHENIKE : 1970 Patient Address: [address] [place] [address] Primary Care Provider: Name: RANDY CALLE After you are discharged if you find you have any questions, please, call [phone] ext [phone] to speak to a nurse. Discharge Diagnosis: Prescription Information: If you have been given a prescription for narcotics, seek immediate medical attention if you have any difficulty breathing or any sudden status changes such as confusion and sleepiness. If you or anyone you know is experiencing suicidal thoughts, mental health, alcohol and/or drug addiction problems; contact the [facility] 22/09 Crisis Hotline -Text 4HLPT qn [phone]. If you received any narcotics, sedation, or [...] business decisions or sign any legal documents [facility] would like to thank you for allowing us to assist you with your healthcare needs. The following includes patient education materials and information regarding your injury/illness. IKE JONES has been given the following list of follow-up instructions, prescriptions, and patient education materials: Follow-up Instructions With: Address: When: MYESHA VINSON [address] [facility], [place] [address] Business (1) 09/03/2021 9:15 AM With: Address: When: [place] [address] Business (1) Medications During the course of your visit, your medication list was updated with the most current information. The details of those changes are reflected below: Medications That Were Updated - Follow Below Instructions Other Medications Updated: potassium chloride (Potassium Chloride (Bdt-Vewa-Cpt 10) 10 mEq oral tablet, extended release) [...] Oral every day. potassium chloride (Potassium Chloride (Dff-Vyjn-Sod 10) 10 mEq oral tablet, extended release) [...] for Disease Control and Prevention October 2013 [facility] Patient Handouton 08-15-2021 Patient Handout [facility] Progress Note - Nurseon 07-31 Progress Note - Nurse Dr. Small reviews PAT information and testing results. Ok to proceed, no orders given. [Electronically Signed on: 08/14/2021 12:02 EDT] Dary Gallegos RN [Verified on: 08/14/2021 12:02 EDT] Dary Gallegos RN [facility] .Auto Diff 08-12-2021 Auto [place] % 8 % Normal 03-13 [facility] Comment on above: Performed By: #### 1 [id number], [id number], [id number] ####[facility] (DEFAULT)[address] [place] [address] 63107 Baso Abs# 0.1 x10 Normal 0.0-0.2 [facility] Comment on above: Performed By: #### 1 [id number], [id number], [id number] ####[facility] (DEFAULT)[address] [place] [address] 15189 Basophils/100 WBC (Bld) 0.9 % Normal 0.2-2.0 [facility] Comment on above: Performed By: #### 1 [id number], [id number], [id number] ####[facility] (DEFAULT)[address] [place] [address] 93482 Eos Abs# 0.3 x10 Normal 0.0-0.4 [facility] Comment on above: Performed By: #### 1 [id number], [id number], [id number] ####[facility] (DEFAULT)[address] [place] [address] 64442 Eosinophils/100 WBC (Bld) 3.9 % Normal 0.9-4.0 [facility] Comment on above: Performed By: #### 1 [id number], [id number], [id number] ####[facility] (DEFAULT)[address] [place] [address] 94294 Lymph Abs# 2.6 x10 Normal 1.3-2.9 [facility] Comment on above: Performed By: #### 1 [id number], [id number], [id number] ####[facility] (DEFAULT)[address] [place] [address] 31679 Lymphocytes/100 WBC (Bld) 30 % Normal 14-48 [facility] Comment on above: Performed By: #### 1 [id number], [id number], [id number] ####[facility] (DEFAULT)[address] [place] [address] 14156 [place] Abs# 0.7 x10 Normal 0.0-0.8 [facility] Comment on above: Performed By: #### 1 [id number], [id number], [id number] ####[facility] (DEFAULT)[address] [place] [address] 76596 Neut Abs# 5.0 x10 Normal 1.5-9.2 [facility] Comment on above: Performed By: #### 1 [id number], [id number], [id number] ####[facility] (DEFAULT)[address] [place] [address] 50417 Neutrophils/100 WBC (Bld) 58 % Normal 44-88 [facility] Comment on above: Performed By: #### 1 [id number], [id number], [id number] ####[facility] (DEFAULT)[address] [place] [address] 70347 [facility] Standardon 08-12-2021 eGFR Non AA >60 Invalid Interpretation Code [facility] Comment on above: Performed By: #### 1 [id number], [id number], [id number] ####[facility] (DEFAULT)[address] [place] [address] 69594 eGFR AA >60 Invalid Interpretation Code [facility] Comment on above: Result Comment: [employer] Repairer medina Kidney disease could be indicated at eGFRs of less than 60 ml/min/1.73m2. Kidney Failure is indicated at less than 15 ml/min/1.73m2 Performed By: #### 1 [id number], [id number], [id number] ####[facility] (DEFAULT)[address] [place] [address] 44470 Anion gap [Moles/Vol] 14.0 mmol/L Normal 5.0-19.0 [facility] Comment on above: Performed By: #### 1 [id number], [id number], [id number] ####[facility] (DEFAULT)[address] [place] [address] 17735 Calcium [Mass/Vol] 9.6 mg/dL Normal 8.9-10.3 [facility] Comment on above: Performed By: #### 1 [id number], [id number], [id number] ####[facility] (DEFAULT)[address] [place] [address] 87148 Chloride [Moles/Vol] 102 mmol/L Normal 101-111 [facility] Comment on above: Performed By: #### 1 [id number], [id number], [id number] ####[facility] (DEFAULT)[address] [place] [address] 12824 CO2 [Moles/Vol] 25 mmol/L Normal 21-32 [facility] Comment on above: Performed By: #### 1 [id number], [id number], [id number] ####[facility] (DEFAULT)[address] [place] [address] 99906 Creatinine [Mass/Vol] 0.72 mg/dL Normal 0.60-1.30 [facility] Comment on above: Performed By: #### 1 [id number], [id number], [id number] ####[facility] (DEFAULT)[address] [place] [address] 47940 Glucose [Mass/Vol] 100.0 mg/dL Normal 74.0-118.0 [facility] Comment on above: Performed By: #### 1 [id number], [id number], [id number] ####[facility] (DEFAULT)[address] [place] [address] 01413 Osmolality 275 mOsm/L Invalid Interpretation Code [facility] Comment on above: Performed By: #### 1 [id number], [id number], [id number] ####[facility] (DEFAULT)[address] [place] [address] 11657 Potassium [Moles/Vol] 3.4 mmol/L Low 3.6-5.1 [facility] Comment on above: Performed By: #### 1 [id number], [id number], [id number] ####[facility] (DEFAULT)[address] [place] [address] 70010 Sodium [Moles/Vol] 138.0 mmol/L Normal 136.0-144.0 [facility] Comment on above: Performed By: #### 1 [id number], [id number], [id number] ####[facility] (DEFAULT)[address] [place] [address] 04612 Urea nitrogen [Mass/Vol] 10 mg/dL Normal 8-26 [facility] Comment on above: Performed By: #### 1 [id number], [id number], [id number] ####[facility] (DEFAULT)[address] [place] [address] 80209 Urea nitrogen/Creatinine [Mass ratio] 14.0 mg/mg Normal 4.6-16.2 [facility] Comment on above: Performed By: #### 1 [id number], [id number], [id number] ####[facility] (DEFAULT)[address] [place] [address] 91838 CBC w/ Auto Diffon Erythrocyte distribution width (RBC) [Ratio] 14.6 % Normal 11.5-15.0 [facility] Comment on above: Order Comment: CBC C LOTTED. PATIENT CALLED BACK FOR RECOLLECT. Performed By: #### 1 [id number], [id number], [id number] ####[facility] (DEFAULT)[address] [place] [address] Hematocrit (Bld) [Volume fraction] 35.0 % Normal 33.7-40.4 [facility] Comment on above: Order Comment: CBC C LOTTED. PATIENT CALLED BACK FOR RECOLLECT. Performed By: #### 1 [id number], [id number], [id number] ####[facility] (DEFAULT)[address] [place] [address] Hemoglobin (Bld) [Mass/Vol] 11.0 g/dL Low 11.3-15.9 [facility] Comment on above: Order Comment: CBC C LOTTED. PATIENT CALLED BACK FOR RECOLLECT. Performed By: #### 1 [id number], [id number], [id number] ####[facility] (DEFAULT)[address] [place] [address] Instr WBC 8.6 x10 Invalid Interpretation Code [facility] Comment on above: Order Comment: CBC C LOTTED. PATIENT CALLED BACK FOR RECOLLECT. Result Comment: CBC RECOLLECTED @ 08/12/2021 15:15:27 EDT BY ALS. Performed By: #### 1 [id number], [id number], [id number] ####[facility] (DEFAULT)[address] [place] [address] Man Diff? Auto Normal [facility] Comment on above: Order Comment: CBC C LOTTED. PATIENT CALLED BACK FOR RECOLLECT. Performed By: #### 1 [id number], [id number], [id number] ####[facility] (DEFAULT)[address] [place] [address] MCH (RBC) [Entitic mass] 25 pg Normal 24-34 [facility] Comment on above: Order Comment: CBC C LOTTED. PATIENT CALLED BACK FOR RECOLLECT. Performed By: #### 1 [id number], [id number], [id number] ####[facility] (DEFAULT)[address] [place] [address] MCHC (RBC) [Mass/Vol] 31 g/dL Normal 26-37 [facility] Comment on above: Order Comment: CBC C LOTTED. PATIENT CALLED BACK FOR RECOLLECT. Performed By: #### 1 [id number], [id number], [id number] ####[facility] (DEFAULT)[address] [place] [address] MCV (RBC) [Entitic vol] 79 fL Low 81-100 [facility] Comment on above: Order Comment: CBC C LOTTED. PATIENT CALLED BACK FOR RECOLLECT. Performed By: #### 1 [id number], [id number], [id number] ####[facility] (DEFAULT)[address] [place] [address] Platelet 491 x10 High 138-427 [facility] Comment on above: Order Comment: CBC C LOTTED. PATIENT CALLED BACK FOR RECOLLECT. Performed By: #### 1 [id number], [id number], [id number] ####[facility] (DEFAULT)[address] [place] [address] Platelet mean volume (Bld) [Entitic vol] 9.4 fL Normal 6.3-10.2 [facility] Comment on above: Order Comment: CBC C LOTTED. PATIENT CALLED BACK FOR RECOLLECT. Performed By: #### 1 [id number], [id number], [id number] ####[facility] (DEFAULT)[address] [place] [address] RBC 4.41 x10 Normal 3.70-5.30 [facility] Comment on above: Order Comment: CBC C LOTTED. PATIENT CALLED BACK FOR RECOLLECT. Performed By: #### 1 [id number], [id number], [id number] ####[facility] (DEFAULT)[address] [place] [address] WBC 8.6 x10 Normal 3.5-10.5 [facility] Comment on above: Order Comment: CBC C LOTTED. PATIENT CALLED BACK FOR RECOLLECT. Performed By: #### 1 [id number], [id number], [id number] ####[facility] ([facility])[address] [place] [address] MRI Knee w/o Lefton 07-27-19 MRI Knee [...] by Michael Pappas on 07/28/2021 1331 Normal [facility] [employer] BASIC METABOLIC PANELon 03-2 BUN/CREATININE RATIO NOT APPLICABLE Normal - [facility] Comment on above: Order Comment: FASTI NG:YES FASTING: YES Performed By: #### 1 [id number] #### [facility] [address], [address] [place] [id number] Head Of Partner Development: Heraclio Miller MD Calcium [Mass/Vol] 9.0 mg/dL Normal 8.6-10.4 [facility] Comment on above: Order Comment: FASTI NG:YES FASTING: YES Performed By: #### 1 [id number] #### [facility] [address], [address] [place] [address] Head Of Partner Development: Heraclio Miller MD Chloride [Moles/Vol] 106 mmol/L Normal 98-110 [facility] Comment on above: Order Comment: FASTI NG:YES FASTING: YES Performed By: #### 1 [id number] #### [facility] [address], [address] [place] [address] Head Of Partner Development: Heraclio Miller MD CO2 [Moles/Vol] 27 mmol/L Normal 20-32 [facility] Comment on above: Order Comment: FASTI NG:YES FASTING: YES Performed By: #### 1 [id number] #### [facility] [place] [address] Head Of Partner Development: Heraclio Miller MD Creatinine [Mass/Vol] 0.73 mg/dL Normal 0.50-1.05 [facility] Comment on above: Order Comment: FASTI NG:YES FASTING: YES Result Comment: For patients >49 years of age, the reference limit for Creatinine is approximately 13% higher for people identified as -[place]ian. Performed By: #### 1 [id number] #### [facility] [place] [address] Head Of Partner Development: Heraclio Miller MD eGFR NON-AFR. NEPALESE 96 mL/min/1.73m2 Normal > OR = 60 [facility] Comment on above: Order Comment: FASTI NG:YES FASTING: YES Performed By: #### 1 [id number] #### [facility] [address], [address] [place] [address] Head Of Partner Development: Heraclio Miller MD GFR/1.73 sq M.predicted among blacks MDRD (S/P/Bld) [Vol rate/Area] 111 mL/min/{1.73_m2} Normal > OR = 60 [facility] Comment on above: Order Comment: FASTI NG:YES FASTING: YES Performed By: #### 1 [id number] #### [facility] [address], [address] [place] [address] Head Of Partner Development: Heraclio Miller MD Glucose [Mass/Vol] 85 mg/dL Normal 65-99 [facility] Comment on above: Order Comment: FASTI NG:YES FASTING: YES Result Comment: Fasting reference interval Performed By: #### 1 [id number] #### [facility] [address], [address] [place] [address] Head Of Partner Development: Heraclio Miller MD Potassium [Moles/Vol] 3.7 mmol/L Normal 3.5-5.3 [facility] Comment on above: Order Comment: FASTI NG:YES FASTING: YES Performed By: #### 1 [id number] #### [facility] [address], [address] [place] [address] Head Of Partner Development: Heraclio Miller MD Sodium [Moles/Vol] 140 mmol/L Normal 135-146 [facility] Comment on above: Order Comment: FASTI NG:YES FASTING: YES Performed By: #### 1 [id number] #### [facility] [address], [address] [place] [address] Head Of Partner Development: Heraclio Millre MD Urea nitrogen [Mass/Vol] 12 mg/dL Normal 7-25 [facility] Comment on above: Order Comment: FASTI NG:YES FASTING: YES Performed By: #### 1 [id number] #### [facility] [place] [address] Head Of Partner Development: Heraclio Miller MD Coding Summaryon 01-28-2021 Coding Summary HTMLBase 64 IcmsjimcQBw5lVd+PGhlYW Q+SO6PVTClK18bnPXqfD1Z H9lJXZ1TFJFLPJFFNH3IZN 6iyNZ0OFlnF0BcpdSj XxyfcLSdIR16CBn1DOJ2fH mgIUqzfR0peWOxO0q1WgLa VX46vF04OAomNZLmYlG4Wg ZpbjsgbWFy G7esYfWwlDGfFub+PHRhYm xlIHdpZHRoPScxMDAlJyBz lLcvWH0wWq6lVOXaYFWnuZ xhcHNlOiBj z9tfEYNsKNokFE6bhAtuB9 CzaID8XYTjv0i7Xu88xEJ+ IKIaTLW5kTbwOHvgr156Is Lln4hlDDR2 iCZgGPnwQBU3E67sw4V0AS ScPAXqPFN4jMX9uL0gbSxf rnqcY8MekMJrAmL7XYD9gK GpsT8dlScr fmkzxT5hYqx+Y99QOT1RAD NALG1GXnj4Z1BkRwdiiNY+ ZC10DSGiCV95xZGquMMre4 vrhUa0NiOo GNLqFDV3yXekKOtjv1RhJT JoC13rbOUjz1J2CBVdnObt xZFiQfQcnYL9vH6zNUdctj vuq0ahiqhn Oqozg2oyxb45cG46A54yIJ jnPIUwLRL9OGKvADXxsMgn vs1msC5eDm6+BJorz6lcw9 ukgVp0EiOp QUAxvdZohHzcBFV4t1VlOe 39X6VwfLibb0BsXqs8ny28 mBDca8C7wMZ0SInmRQBjqW 0qSMynDbB7 VYCpKtWviG57kETzQKofRd 1coXbuiLsfGY3aBNCaoxyt EEOiqU5mWMKeyVKoxCtbHO 4wNTBpbjtm e444SdTtSWP2EKVtgLRlF8 BuqJ6sOwByTTHeMNElQ0Ie wQTiBFrfI645BTwyIaX5XW VgsuLaQ5Id ULDonQjrDzU3a5U8Rq1Pp9 CflrxdSVR3OUnuVOLwFbI8 WhSeGaE8O9VrWpv5TALswC egWJ4bD6Dx OGDtvpvisszmmCG0NFGyTM JpaJ44eACiJVilBm3ns7Q7 s892OYFzOBJydY88Tg1kdU ogMTBwdCBU tX7coausu4jslynhSkCpGD UaUKf3TMm8IBSftAkqNaZv DKW3PqZ8BVY6qLNbjI5fuO jpngrluS2x Oyc+D76fnQ6bNOU1SNM2lm naYDZnesFzIC66ZT24Z7Cw PjwvdGFibGU+PGRpdiBzdH owWE2yEmGb u5cpp0BgESntB5PdBWAaNB tySgo2VTPySQK9iOU8hT9s YITcUPcrr3V8hSW2U5Owgm Lsyw1id0xz YNQtWFqaB82kaFCda3E4II OfuJZ0EEBfyRbpBqDtpJ08 Oyc+AUKawXcva1BrKbiwr8 hrs7bjoXj4 GqUxJZXoijFjbDiqLVZ9z9 ZrPt97K68cBRytQYGxDVAw EVRtKBQcuWdhqh0kmX1oZi 8+PGNvbCB3 aJN3jY3xHPAhQlZ9MBclO3 42HsZcnFReWyssz1qxq8oq tGe2IaFiNZVoixNjlFxyUN A3a2TxRl74 L12nIGklVQAuMALvMLBoQR WahNafdn8wdQ3zSq4+PC9j c9qfja53eZ11jIQ+PHRkIH C1xIqiCQnk LPAwcV5jBYxxZvD7PYSwOx SdhO77xWNjSGmaRf2iwOcz nEbtQA5fRMZljjrjt739Ha Vws5jcJYWt kGPhIKbtBVL7E83yd8F7OL NqHTAxHMJ6eJT1wR1wbAmc bjogbGVmdDsgdmVydGljYW dtADvoM360 IHRvcDsnPlBhdGllbnQgTm AtOZi3K0ZsPfv1KPWslXch VA8ztGQzDCuwGb0abSwacB xnXJ9cLFLk wydaw365BkUjr3rtFSXlcR CnMBkpGIJ4C00zk1F9SSZi EFGpWUI5lNO2sM5ujUbchy ogbGVmdDsg kfQbaHikRZqeLGyzK493HJ RvcDsnPkJpcnRoIERhdGU6 XH48AE78sZObk3Y2gCH9K2 BhZGRpbmct vnnwhOA9XOZfIOTneT11Hn 8csFnxLi4oBDYfRZF6AYFk zGArH5OomP3bPgVjWMXnVV PvR8FtaQKb EZfyS651UYkxGeQ1XRGktf LmE6MvRWEfmXtoYpG8z0J4 Sr7NN1F5HZ54PQ55nHYkf2 H9sCP8X4Zt PYJwsyolzdjqhIS4VMKzWW HuqB95Ki1tlHgrGb0gYZKz ZFR8YWIpgBBuV8UlqV8hIj AjMDAwMDAw Y9TyaQMpWBxxX360GXgyXy W4XEEekdTpP3IhGPPfpEvx MhL8q7U3Te4UUYq1AJ44GK 20oJDbi0R8 pMF0B3YaCITfngbzbvvvyY E4XXIfABDpdB91Mo7pyVfj Fp1oRTBcJGV3WFGxdXNfC1 YnwB2yXsCl RNHzUHJoY0GesJTjNWwpM5 74SKdiOmT0NUPfheSoY4Sh VPJruYugTtN8k2M2Sy1FBN XaQZ59LCH5 qWT4WN43AI86O4JkYzwpsW FibGU+PHRhYmxlIHdpZHRo BIvfISEhOuEppRoaFS0lRw 9yZGVyLWNv hFqccAJeRyLek9fmWAIiTV doSU4ovOorM0BfgEP0DNRl u2d5Dy51K58nH3GsoHL+PG AtuLQ3nXZ2 lN4fGyGjCdD5PSbfA572Ni VwtTZnQuflv0ixj1vhgUo8 MpO4CTWbffErfYkwUJJ8g0 XvBo02Y27b IHdpZHRoPSIxNSUiIHZhbG pxzp6ynN4lHd0+PGNvbCB3 gDB5aH3uFjSjVeH4LWfsW7 49InRvcCIv Eivfc3nsg8hvuXh6MkGuCD PhbgXcdKagIVR1k5LqNz54 V9KhjWiot8DzPiv9qx42cZ Qmo1Z5jVQ7 L6ReXILiipmsrUSvbIlbOX 7cQPZkrinsBXYenF7wOTNk X5y9IwOvKjP0XSrpT3Teev T4VJKegWGm NQvcVQO5O05dl7U4IGQgFB KeIGN7yOB0sK1xnGgbbtuj bGVmdDsgdmVydGljYWwtYW gxH895RJPh fLriNTJmvH5pGJItqAVubB meLL2qFCJcvvwdHexPIF1A TiwgRUxJWkFCRVRIIEFOTj wvdGQ+PHRk JWZ7oYfqPDuzIHBlwA8eZF WxG1z6RcTdVkC1VNovB9Mg TOIwyzjoPc33cW0zPzGbYt R0ELoxU9Xk nqH8POIqkIUhPVjwKUV0P5 8ls9U4OZTcHFXoWFF5bVB3 rW6waXafyttafCBulOrcnf VydGljYWwt PDlcR423XRWfeKtkObI0Cw UpPuP5KfY4I0UeHvf9LHNv kPstYI4koNWmFJmgBs2lbO luoSiwDB0d BZGsgvejICAtqX0wNYTglV FhpFwrIA6bBKUwxjvgo432 JxHlAWS4XJZukLVeH2NnrH 9yOiAjMDAw USPbA1RnrRHpNVlwX268CE euKxF9HGEfyiQwD7WvFDOi hExcDbJ0t8R9Sb51OUPZKA FyczwvdGQ+ WNRxCEG4bRioZIylSBAbaL 3lYEAcV7a5AnIfBhL5RAmb V7YpJHEjfuddEk38fE8lDw KuWrG6UNjt E4JjngS2QAIlgIJyNDwhHS I7O44qo4I2CTNmBWKpFSU6 bRY5gS2xjUpygrahuDNosO sgdmVydGlj NWejYUzaK087PFQewGuoMs ZFTUFMRTwvdGQ+PHRkIHN0 eLnmFWxiWJJstQ9pPDMtJ4 p7DhNrBiU7 NIqqE0FvHFKappwsXo16qO 7vOgAtVrI9LPjnR4DvlcB2 XOWamGCkRUgxPEP7X84kq9 Q2AQRcVEIq OXQ8hZD8aP0prVhpazvpeQ VmdDsgdmVydGljYWwtYWxp V748YQUpuStuUpNxqSYGnW LyMPJ5RN98 YA97P8XkMvmilJBpzXE+PH RhYmxlIHdpZHRoPScxMDAl SeHexDqpYE4yWm3yAJWoKZ NvbGxhcHNl ByOku4rtPYJxNNawGQ8hcO vsJ9MpvNH5CZVof9w7Zf48 Q16fA3UfqEK+WPXtyMF7dU V9jM2yFdOr CdM0KIgnK145IiVlaAVcQw ans0xiu1qxeZk3SqKoQTDi gdEieQwlDNK2m1GyFr80E3 9sIHdpZHRo UBTcAPLzWAIbyXksfj7uoS 9wIi8+YIVkdYW7jFD6lQ5x JbOrLuE7CYzjI215CoDskO YvBuqmJ77c H1PgzAN+LGMzTcf0GWBvgS sfMO3pkVRsEZxiIv8dBIF1 BkLqSuEdLDxhK0YrBKPedn ctcmlnaHQ6 HNLfCJMjbF24Aj8gmEvlMu 0wJONaMJK0SSNxzORmU1Qm vM4kJdOvMRFlQMZcQ9QkqC HmUMtpP303 EUyaQcH9YBKlevXyX4AfAZ WdiOzmNyF2p4N6Ur0WbKya gPKsVG1qYhQjVQu2W2MeRg q9FXFllJhe QO7wcILaFAkdNu8qhXxcqY zcQE5mZKYammqyd541HsQn n2cgDVMdkVMpZRhoXBI8U1 6yh2A0SUEn UKXqQBU2sFR2cF1ieEluzv ogbGVmdDsgdmVydGljYWwt HTupQ752YBYsdXejSyRCKp j2A7CzNrg8 WNKeqGjbPK7hrBYxXNkaGj 4mfTcgpOwdNH0rJONzhygx n888DcMwk9ilAURymSByRE cjHGO6Q25t u1U0WZFiQJKnNXH4vGK1bQ 1hbGlnbjogbGVmdDsgdmVy iBxuGSpfXOehL571HOYtwK lzKm2DGis0 R0UiFox8TAFtuQacPY6sxP SnQXozJb4qyVamsPiuYN4t UVSpicaxo792MoHui4iuPU EwcHQgVGlt OQA8E93us5X3IFKhGVReZW M2zOH1qA2vkOzvnqsrwMKg dDsgdmVydGljYWwtYWxpZ2 46IHRvcDsn PlBheWVyOjwvdGQ+PC90cj 89S9YrQsgfXwi6PIOeNJT3 fOL9sG1dKAMaPPnod9B0aL B8I2WqnqXq ci1 (more content not included)... [facility] Consent Formson 01-23-2021 Consent Forms [id number]#1.0 [facility] PACU Record MAGR PACU Record Summary Primary Physician: Hua Oglesby DO Finalized Date/Time: 01/23/21 13:00:07 Pt. Name: IKE JONES /Sex: 1970 FEMALE Med Rec #: [id number] Physician: Hua Oglesby DO Financial #: [id number] Pt. Type: D Room/Bed: / Admit/Disch: 01/21/21 06:05:01 - 01/21/21 10:08:00 Institution: PACU Case Times MAGR Entry 1 In PACU I 01/21/21 08:20:00 Discharge from PACU 01/21/21 09:04:00 I Last Modified By: Lisa Connell RN 01/23/21 13:00:04 Finalized By: Lisa Connell RN Document Signatures Signed By: Lisa Connell RN 01/23/21 13:00 [facility] Consent Formson 01-22-2021 Consent Forms [id number]#1.0 [facility] Dis[facility] Instructions [id number]#1.[address] [place] [address] Telemetry Stripson Telemetry Strips [id number]#1.0 [facility]-21-2021 Anesthesia Note Patient: IKE [...] on: 01/21/2021 08:25 EST] Gen Jean MD [facility] Anesthesia Note Patient: IKE JONES Age: 50 years Sex: FEMALE : 1970 Associated Diagnoses: None Author: Gen Jean MD Preoperative Information Anesthesia history: Patient history: Nausea and vomiting with anesthesia, No difficult intubation, No malignant hyperthermia. Family history: No malignant hyperthermia. Review of Systems Respiratory: No shortness of breath, No apnea. Cardiovascular: No known VA, No chest pain. Gastrointestinal: No heartburn. Health [...] All Problems HTN (hypertension) / SNOMED CT [id number] / Confirmed Histories Family History: No family history items have been selected or recorded. Procedure history: Abdominal hysterectomy (219385331). Arthroscopy of knee (697055778). Lipoma ([id number]). Comments: 01/04/2021 11:19 OSKAR Becker RN, Milana dominguez Social History Electronic Cigarette/Vaping Assessment Electronic Cigarette Use: Never. Alcohol Assessment Use: Current. Beer, 1-2 times per week Tobacco Assessment Never (less than 100 in lifetime) Tobacco Use:. Substance Abuse Assessment Substance use: Past. . Physical Examination VS/Measurements Vital Signs (last 24 hrs) Last Charted Heart Rate Peripheral 74 bpm (JAN 21:25) Resp Rate 16 br/min (JAN 21:25) SBP H 169 mmHg (JAN 21:46) DBP H 103 mmHg (JAN 21:46) General: Alert and oriented, No acute distress. Airway: Mallampati classification: II (soft palate, fauces, uvula visible). Respiratory: Respirations are non-labored. Cardiovascular: Normal rate. Review / Management Laboratory Results ECG interpretation: Within normal limits. Plan [place] [employer]#(ASA ) physical status classification: Class II. Anesthetic Preoperative Plan Anesthesia: General. . Anesthetic plan, risks, benefits, and alternatives discussed with the patient and/or family. Patient verbalized understanding. Family/Guardian present. Informed consent was given. Consent was signed by the patient. [Electronically Signed on: 01/21/2021 07:10 EST] Gen Jean MD [Verified on: 01/21/2021 07:10 EST] Gen Jean MD Normal [facility] Inpatient Patient Summaryon 01-21-2021 Inpatient Patient Summary [place] [id number] Patient Discharge Instructions Name: IKE JONES MIGUEL : 1970 [facility] [place] [address] Primary Care Provider: Name: RANDY CALLE After you are discharged if you find you have any questions, please, call [phone] ext [phone] to speak to a nurse. Discharge Diagnosis: [...] alcohol and/or drug addiction problems; contact the [facility] 22/09 Crisis Hotline -Text 4HOFO to 756943. If you received any narcotics, sedation, or [...] business decisions or sign any legal documents [facility] would like to thank you for allowing us to assist you with your healthcare needs. The following includes patient education materials and information regarding your injury/illness. IKE JONES has been given the following list of follow-up instructions, prescriptions, and patient education materials: Follow-up Instructions With: Address: When: MYESHA VINSON [address] [place] [address], [address] [place] [address] Business (1) 01/30/2021 11:00 AM With: Address: When: [facility] [place] [address] [facility] (1) Medications During the course of your [...] or concerns, please call the office at [phone] Viruses or Bacteria What?s got you sick? [...] (except strep) (more content not included)... Normal [facility] MAGR Intraoperative Recordon 01-21-2021 MAGR Intraoperative Record MAGR Intra-Op Record Summary Primary Physician: Hua Oglesby DO Finalized Date/Time: 01/21/21 11:10:34 Pt. Name: IKE JONES /Sex: 1970 FEMALE Med Rec #: [id number] Physician: Hua Oglesby DO Financial #: [id number] Pt. Type: D Room/Bed: / Admit/Disch: 01/21/21 [...] 2 Entry 3 Case Attendee Hua Oglesby Satya S MD Long, Barbara RN Andrew DO Role Performed Surgeon - Primary Anesthesiologist of Processing Inspector Record Time In 01/21/21 07:22:00 01/21/21 07:22:00 01/21/21 07:22:00 Time Out 01/21/21 08:17:00 01/21/21 08:17:00 01/21/21 08:17:00 Procedure Arthroscopy Knee(Right) Arthroscopy Knee(Right) Arthroscopy Knee(Right) Last Modified By: Dorothy Archer RN, Barbara RN Long, Barbara RN 01/21/21 08:21:11 01/21/21 08:21:11 01/21/21 08:21:11 Entry 4 Entry 5 Case Attendee Nemo Mendez CST, Regina CST Role Performed Scrub Personnel Crystalizer Tender Time In 01/21/21 07:22:00 01/21/21 07:22:00 Time Out 01/21/21 08:17:00 01/21/21 08:17:00 Procedure Arthroscopy Knee(Right) Arthroscopy Knee(Right) Last Modified By: Dorothy Archer RN, Barbara RN 01/21/21 08:21:11 01/21/21 08:21:11 Surgical Procedures MAGR Pre-Care Text: A.20 Verifies operative procedure, surgical site, and laterality Im.150 Develops individualized plan of care Entry 1 Procedure Arthroscopy Knee Primary Procedure Yes Primary Surgeon Hua Oglesby Modifiers Right Efra DO Surgeon Comment RIGHT KNEE ARTHROSCOPY Start [...] Post-Care T (more content not included)... [facility]21 MAGR Postoperative Record MAGR Phase II Record Summary Primary Physician: Hua Oglesby DO Finalized Date/Time: 01/21/21 10:17:55 Pt. Name: IKE JONES MIGUEL [place]./Sex: 1970 FEMALE Med Rec #: [id number] Physician: Hua Oglesby DO Financial #: [id number] Pt. Type: D Room/Bed: / Admit/Disch: 01/21/21 [...] Signed By: Marianna Gerber RN 01/21/21 10:17 [facility] 03-23-2020 MAGR Preoperative Record MAGR Pre-Op Record Summary Primary Physician: Hua Oglesby DO Finalized Date/Time: 01/21/21 08:40:07 Pt. Name: IKE JONES MIGUEL [place]/Sex: 1970 FEMALE Med Rec #: [id number] Physician: Hua Oglesby DO Financial #: [id number] Pt. Type: D Room/Bed: / Admit/Disch: 01/21/21 [...] Signed By: Carolina Painter RN 01/21/21 08:40 [facility] Operative Report - Surgeon/P aster 11-22-2021 Operative Report - Surgeon/Physician Preoperative diagnosis: Internal [...] on: 01/21/2021 10:16 EST] Hua Oglesby DO Normal [facility] Patient Handouton 01-21-[address] FINK [...] or concerns, please call the office at [phone] [facility] COMPREHENSIVE METABOLIC PANE [place] 01-12-2021 Albumin [Mass/Vol] 4.3 g/dL Normal 3.6-5.1 [facility] Comment on above: Performed By: #### 7 600, 30599 #### [facility] [address], [address] [place], [place] [id number] Head Of Partner Development: Heraclio Miller MD Albumin/Globulin [Mass ratio] 1.8 {ratio} Normal 1.0-2.5 [facility] Comment on above: Performed By: #### 7 600, 39870 #### [facility] [address], [address] [place], [place] [id number] Head Of Partner Development: Heraclio Miller MD ALP [Catalytic activity/Vol] 60 U/L Normal 37-153 [facility] Comment on above: Performed By: #### 7 600, 54138 #### [facility] [address], [address] [place], [place] [id number] Head Of Partner Development: Heraclio Miller MD ALT [Catalytic activity/Vol] 17 U/L Normal 6-29 [facility] Comment on above: Performed By: #### 7 600, 82325 #### [facility] of [address], [address] [place] [address] Head Of Partner Development: Heraclio Miller MD AST [Catalytic activity/Vol] 18 U/L Normal 10-35 [facility] Comment on above: Performed By: #### 7 600, 13017 #### [facility] of [address], [address] [place] [address] Head Of Partner Development: Heraclio Miller MD Bilirubin [Mass/Vol] 1.1 mg/dL Normal 0.2-1.2 [facility] Comment on above: Performed By: #### 7 600, 30754 #### [facility] of [address], [address] [place] [address] Head Of Partner Development: Heraclio Miller MD BUN/CREATININE RATIO NOT APPLICABLE Normal 6-22 [facility] Comment on above: Performed By: #### 7 600, 93299 #### [facility] of [address], [address] [place] [address] Head Of Partner Development: Heraclio Miller MD Calcium [Mass/Vol] 9.3 mg/dL Normal 8.6-10.4 [facility] Comment on above: Performed By: #### 7 600, 28380 #### [facility] of [address], [address] [place] [address] Head Of Partner Development: Heraclio Miller MD Chloride [Moles/Vol] 105 mmol/L Normal 98-110 [facility] Comment on above: Performed By: #### 7 600, 62846 #### [facility] of [address], [address] [place] [address] Head Of Partner Development: Heraclio Miller MD CO2 [Moles/Vol] 28 mmol/L Normal 20-32 [facility] Comment on above: Performed By: #### 7 600, 86628 #### [facility] of [address], [address] [place] [address] Head Of Partner Development: Heraclio Miller MD Creatinine [Mass/Vol] 0.86 mg/dL Normal 0.50-1.05 [facility] Comment on above: Result Comment: For patients >49 years of age, the reference limit for Creatinine is approximately 13% higher for people identified as -E[place]ian. Performed By: #### 7 600, 73544 #### [facility] [place] [address] Head Of Partner Development: Heraclio Miller MD eGFR NON-AFR. NEPALESE 79 mL/min/1.73m2 Normal > OR = 60 [facility] Comment on above: Performed By: #### 7 600, 67169 #### [facility] [place] [address] Head Of Partner Development: Heraclio Miller MD GFR/1.73 sq M.predicted among blacks MDRD (S/P/Bld) [Vol rate/Area] 91 mL/min/{1.73_m2} Normal > OR = 60 [facility] Comment on above: Performed By: #### 7 600, 97705 #### [facility] [place] [address] Head Of Partner Development: Heraclio Miller MD Globulin (S) [Mass/Vol] 2.4 g/dL Normal 1.9-3.7 [facility] Comment on above: Performed By: #### 7 600, 73167 #### [facility] [place] [address] Head Of Partner Development: Heraclio Miller MD Glucose [Mass/Vol] 86 mg/dL Normal 65-139 [facility] Comment on above: Result Comment: Non-fasting reference interval Performed By: #### 7 600, 33103 #### [facility] [place] [address] Head Of Partner Development: Heraclio Miller MD Potassium [Moles/Vol] 3.9 mmol/L Normal 3.5-5.3 [facility] Comment on above: Performed By: #### 7 600, 29352 #### [facility] of [address], [address] [place] [address] Head Of Partner Development: Heraclio Miller MD Protein [Mass/Vol] 6.7 g/dL Normal 6.1-8.1 [facility] Comment on above: Performed By: #### 7 600, 30939 #### [facility] of [address], [address] [place] [address] Head Of Partner Development: Heraclio Miller MD Sodium [Moles/Vol] 140 mmol/L Normal 135-146 [facility] Comment on above: Performed By: #### 7 600, 24746 #### [facility] of [address], [address] [place] [address] Head Of Partner Development: Heraclio Miller MD Urea nitrogen [Mass/Vol] 15 mg/dL Normal 7-25 [facility] Comment on above: Performed By: #### 7 600, 13759 #### [facility] [address], [address] [place] [address] Head Of Partner Development: Heraclio Miller MD LIPID PANEL, [facility] 11-1 Cholesterol [Mass/Vol] 173 mg/dL Normal <200 [facility] Comment on above: Order Comment: FASTI NG:NO FASTING: NO Performed By: #### 7 600, 29206 #### [facility] of [place] [address] Head Of Partner Development: Heraclio Miller MD Cholesterol in HDL [Mass/Vol] 69 mg/dL Normal > OR = 50 [facility] Comment on above: Order Comment: FASTI NG:NO FASTING: NO Performed By: #### 7 600, 88938 #### [facility] of [address], [address] [place] [address] Head Of Partner Development: Heraclio Miller MD Cholesterol in LDL [Mass/Vol] [...] equation in the estimation of LDL-C. Campos SS et al. MARQUISE. 2013;310(19): 6514-1341 (http://education.RMI/faq/JCX396) Performed By: #### 7 600, 34951 #### [facility] [address], [address] [place] [address] Head Of Partner Development: Heraclio Miller MD Cholesterol.total/C holesterol in HDL [Mass ratio] 2.5 {ratio} Normal <5.0 [facility] Comment on above: Order Comment: FASTI NG:NO FASTING: NO Performed By: #### 7 600, 71387 #### [facility] [address], [address] [place] [address] Head Of Partner Development: Heraclio Miller MD NON HDL CHOLESTEROL 104 mg/dL (calc) Normal <130 [facility] Comment on above: Order Comment: FASTI NG:NO FASTING: NO Result Comment: For patients with diabetes plus 1 major ASCVD risk factor, treating to a non-HDL-C goal of <100 mg/dL (LDL-C of <70 mg/dL) is considered a therapeutic option. Performed By: #### 7 600, 51602 #### [facility] [address], [address] [place] [address] Head Of Partner Development: Heraclio Miller MD Triglyceride [Mass/Vol] 68 mg/dL Normal <150 [facility] Comment on above: Order Comment: FASTI NG:NO FASTING: NO Performed By: #### 7 600, 66845 #### [facility] [address], [address] [place] [address] Head Of Partner Development: Heraclio Miller MD Coding Summaryon 01-09-2021 Coding Summary HTMLBase 64 ZaxjrwqzNUu5mRo+PGhlYW Q+FD2NUJRpB08fuWHgjZ6N S0wDZG0VASLMSSJASV9OCA 7feTG8VAboS4JkslJz OeawsFIeXI83LDw8BUT7oB nyMVtchF4xzMFvJ6e3GxXc CV49fX59AWcvEPYuIoN4Pk ZpbjsgbWFy L7oeAvVxiYNrVjc+PHRhYm xlIHdpZHRoPScxMDAlJyBz hEjsHY5dVj3gGXVeMNGniT xhcHNlOiBj x0ldLBZfXCyyZI6fwHozE1 ItdYN7NVWxm4l5Ac67dFV+ QJCyPZM9dBgxWLfcz986Ka Rpe5zqKJJ9 pIRfILbkYJK7O56yg5E2FZ JoKOIuIFS5bYO9uW8ztPds vaukV7NdgMNfQpE8EIZ4iI RnpR9uiRiu fggmuC6fLqp+A06KBS0GSZ MTXS4IPsx9A2EwWasnqHS+ SW90MRItJR62xKHcqNEzg7 gmiWh3GyDs QJHbZJZ5nVjqCXxyd2McSK VkT36dtBLqx9S4TZViiTsv vBLrLtZxcSU0bY9mLPccuk sxp1oxdgsl Fdkwb7wmad65hW37Y21fQN ktZQHiVGT0JAAmTNXucWtx bk7biG2qSn2+PUtbu0gnd6 akzRr3GiEu LEMxtlKikBfzZFD6x5EkGf 80G4HfpSlvm7LzVyi7il20 bSOkp6V0eHF5LUagGXFmmL 3mCRklLxT6 PMWzDmLfxT20sATqRGimEy 9jxTgxfLssPS8jENXetfcl ZKYlpK7uGOJxzLJacPgkQH 4wNTBpbjtm y766CaDhWGP2TYRzaUYeL9 VnnX8mEeVlADOpWNGdO6Pi rZYlGKkjG391IJqrKlY3EB DtbpGdW9Wt IMOrrVkcWdI5i9Q3Gd4Xm8 RoyftoZAQ4GRmfBBZwUdCl UqTtHsE1H9IkRxq4DEJnkU ltEP1nP5Rd BOLbbuoxfwpwgQY4KTXbTL LxgM01hKYxZNueKi5eq8B4 h206VZQdGOKhyQ32Pn8huN ogMTBwdCBU zX6edxmjy9tpcuafWaKuIE ZdONs6ENs6WYVffChiViGu ACG1BiV5DDN3yDSgqV2czW gefqbfvU2n Oyc+U36blV1iDBM4QMB5qf fmBGClwfEjJZ99DF66U3Qr PjwvdGFibGU+PGRpdiBzdH neEB5nEhOp a1bhw3TaEYakT3JiLRXpND rzJzs2AFMiIXC6vYZ1xV1w CVVzYPvyu4L3gYY9Z0Vsio Wtgp9qz7sk NERkPMnyK31swSHrk7O2ZQ IxcUL4EGNbaTbgWgHkwA73 Oyc+KXBzwNaij4YeSzary1 twb4natFi4 AjNeVKXzyrIxoPfgYQM8d9 LtPq33B51fGOneXFDwPSOz MQBqLNGtcSbunj6faV5jYg 8+PGNvbCB3 vZU3iD4rXRPiKgC7RRphT9 89QuWfyYSpLtkin2ype7lg sDe4BfCeWKUdcpKdiDgqXW N4k9OmKj98 U61yCFlsVNTcUXHvFPPgYI AvcZoyge6wyP7jIb6+PC9j s2cukt69vA76uDX+PHRkIH X8sJeiUNus FGShiW6tNVbnAzK7GXHaQp UttZ89eZCwGAgfDl4rmCcc vKkaDK1gEZJpmbecq292Qj Ypc6suJMCo zXQwDTpdELP3B79rx8Q9AL GyRYWvSEB9zGQ6aW0vjNjh bjogbGVmdDsgdmVydGljYW plFSmrS485 IHRvcDsnPlBhdGllbnQgTm DbJVi1A6VjGrh5TCLihObq OB2enHFaSMnjSj3uwKzwnP qnKC5pCEJy lrfjv462EcSal3wzQRCotP HoBDfrVBL5Q90fz9R0JNAh SSUvNQJ1tRN7gW9mtWsfvu ogbGVmdDsg btYadIonNNobXUilP787GD RvcDsnPkJpcnRoIERhdGU6 DY89WC88vIOuy2R1yXU6R1 BhZGRpbmct gozyoJM8HGXyBOAusK85Sg 9esYmcTv3tVPHvDIY3IQCa qLMzB2MezZ8cYqIcMBUsZM QpU1BixTNg EEznC298MKeiBdO1XPYbaw ZqK6EfGCLzzMetVzS1w0H1 Wp6NP4O7EF99VA35iBIqy1 F8jII9K9Sx TVMuysoiazqqpVH8XYKmQO LqxV72Af0rrGwqOs2oKIPd WWC1OPYgrCCmO2LoeB6uKt AjMDAwMDAw U0LrqSPpGToyB088NQltQv W3FMSxhrKwQ8GfQJWlvQlg SaV8x4P8Oc6MJGw2ST00XL 99fJBlc1I3 yTJ0F1TnTNHvldguqxytmQ Z4YKEnDJQaeU71Yv6alVrp Tv8tTXIwUTN6VGZzvXUrB0 GbmJ0oHtLp AEJxHXXlP6TbtDWvUNfnU0 09VWvbVgB4FJXwunFhJ2Xu CVDhpAyvHbM6t5Z3Fb6DAC AgEH83WEZ2 zYS5QN30VD13M7SpXjzvuO FibGU+PHRhYmxlIHdpZHRo YVfuAVShIcQnoJmtJJ0yFq 9yZGVyLWNv iSmmvUSjUnMtu3qzQUSwCV qoUK7rxLepK4BjgYX0YQSi s9t7Nb06L74pX9MzpJF+PG WkvMB2iQC8 zG1fXqPhPqY7VYdiS703Zj LrlBItZgwov5vha6ksfVa2 EkQ2FQOqgfJhyHsqNWR8w9 BdGd23E35s IHdpZHRoPSIxNSUiIHZhbG czvt4jxX4cWp3+PGNvbCB3 sEL6kD3bEcQvSpR8GMghR8 49InRvcCIv Kxwpd4pvo9lpkKq9YkIpVC AzjfPrgNncONO5a9IeYq07 L4EteQdyp1MyVxt1fb22wP Ahz2Q7oZH5 D9OiHZMuohegxQCcjKjkER 5jMWNlbvpkCCQfuO3aKIKh K3y3BkSyCmB0EZkuX9Mwlq X6QXNtfMVl RDwyKRY8J61ud1K7UXXkEU AxRTD3kRU2sI6gqGicayzz bGVmdDsgdmVydGljYWwtYW ecO636XTTa rExdQAXojW6dSYZsqVDnuE paKD1rGSZqinuoRozMOC9W TiwgRUxJWkFCRVRIIEFOTj wvdGQ+PHRk DQA7lYvqCIqlWWHmyB8zMG QrV1c4UvKiIwR3ZAddC1Et TQTkpmotYl07xR5jFcXvCx M6NWfuK5Dz ncE9CPPowIMwGQklEAI5D1 5yg3O2DYJtZGVsEOY9oWK9 rT9jmNktdgexgBFjtBvasw VydGljYWwt AZxfZ106QZKzrPwkQaE7Ma HpDrP0AwX6Q4YeIgv8EKHf iInbEL1xfEMxVZfyPf5tqJ pttIpySN6r AEElrxzfTJUeyH0pGSQfxO LdpBdlKW1wPXBcyzhmt493 JcKmKFR6IXMvwIIoL2VxiT 9yOiAjMDAw HJPuB8VxlCIoAFigX766CD mnQlS6XBAfmvAcW4FiXBQf kSfyTxC7k9Q7Lz55BPYZKE FyczwvdGQ+ DMAuRNC6fIwzRCmwXYNwzL 5jHWQyN3j1FrStLdH0JVko B8TwLUArdzcpSj88fY8kRr KaGtM8UOvk Q7LtnkT3RLUezLQfTHclGC E0F75ei4O0HAYvDODiCCS1 eRZ4dE6knElwcqdnmLZnzO sgdmVydGlj QCjhDBltA463QEFvpCfoCo ZFTUFMRTwvdGQ+PHRkIHN0 mVohDUrbXKQikA6vUNZrO5 i6UkZgYqZ5 NFgnP0MkDXQwzjwbFe31dC 4lJoAqJsS7XGpxG2FzceW3 VMBwyRUcHDaiDOF8H47lx4 M2PQIlPGWu LGT5aQS2kY0nlHkplhafmK VmdDsgdmVydGljYWwtYWxp F938PGDzuJepJx0HVS30ZV 01V4TbPhtc dGFibGU+PHRhYmxlIHdpZH BiGPzzOXIrJnRekLpbNB1t Ck7wLPFoYHSrwYtfhAFiAh Igv0xfZMVn ZQmoOB3gaBqzN8YkdLU2FV Obu5i2Xj88F18dO5EpbUL+ YOXgrMK3dHC7qD0bQfGzKn K9WFnkC975 KeLwxLXuEcukf2bqz0iivH m5ZjJsJAPliaRmiGaaPUV3 t8PoAn89O43gJUgzWCDjPP IyMCUiIHZh wUyfzg4sfG9aVl6+PGNvbC Z9uSW5qF3xNzFcSpR5XPiy A710ZkMfiUCpGtyaQ97dQ5 JvdXA+PHRy Owr3VHQekHjdJR6pqJZoVS xwBc2vLKG9SaHsHkNaMSeo B5DyXMJpuujotuztfHQ4ON QeDSKdnS98 Df5dzCqhBd9tDBLzMCU2LG XjgRYdB9ZxwD1mLzByPUTw DFHqW1WcoKUqRSbuN464TP ofGbQ5YCYi huJuH8NuDFPcyScmCgV3c6 S4Kw5NxGwxcJIfUE4gGtNh UTe8N1KsXvl1CXRrlVebQY 0ncGFkZGlu Zt6usCzdkXctHT2iUNMvbu nys909QqYdy7npDPIjdKVo JMyxYQO8F07im5M1ZBWmWC IzPBU5dUA5 oS3vmDuupkgstMGgrHagck LzoAwzCZipAXqnB024HBLi aNbiMyYLQag3X1VvSxu2NY PhmLvzYE8v fDQzQImkNh4ytIjlsKrlIB 7qTXTttgvjt627EcLuu5rv RFKxfTAbSVyxYSW8H09fg4 Q6HBDcPBBs RDY8gTD5sL0luFyiubdbbZ VmdDsgdmVydGljYWwtYWxp I172XUObbAdhWa9ZKya7Y2 GlBek7NFDe qWssMN1tbPMxOHxaDj6kvK gfxJpmIX9iUIFnaxkdw715 JcLhd4hyPSNofQEqFTigSR G3L51ru7J3 IKMnDMWaDFQ9qJL5jT8cvF lnbjogbGVmdDsgdmVydGlj NVzmFWfuP490ZNMqgMmoCp BheWVyOjwv dGQ+JH75tj38M5BqZvgwUd a9VEErBXF0vFK3dX0sTJIh AJsxl4W0oVE2D5VzusUujg 0ht5wnEWGs ZTo (more content not included)... [facility] Consent Formson 01-08-2021 Consent Forms [id number]#[id number] [facility] Progress Note - Nurseon Progress Note - Nurse PAT review for 01-21-2021 surgery reviewed per anesthesiologist, Dr. Gutierrez- no additional orders received. [Electronically Signed on: 01/07/2021 14:24 EST] Elvira Navarro RN [Verified on: 01/07/2021 14:24 EST] Elvira Navarro RN [facility] .Auto Diff 1on 01-04-2021 Auto [place] % 8 % Normal -12 [facility] Comment on above: Performed By: #### 1 [id number], [id number], [id number] ####[facility] (DEFAULT)[address] [place] [address] Baso Abs# 0.1 x10 Normal 0.0-0.2 [facility] Comment on above: Performed By: #### 1 [id number], [id number], [id number] ####[facility] (DEFAULT)[address] [place] [address] Basophils/100 WBC (Bld) 1.2 % Normal 0.2-2.0 [facility] Comment on above: Performed By: #### 1 [id number], [id number], [id number] ####[facility] (DEFAULT)[address] [place] [address] Eos Abs# 0.3 x10 Normal 0.0-0.4 [facility] Comment on above: Performed By: #### 1 [id number], [id number], [id number] ####[facility] (DEFAULT)[address] [place] [address] Eosinophils/100 WBC (Bld) 3.6 % Normal 0.9-4.0 [facility] Comment on above: Performed By: #### 1 [id number], [id number], [id number] ####[facility] (DEFAULT)[address] [place] [address]347 Lymph Abs# 2.6 x10 Normal 1.3-2.9 [facility] Comment on above: Performed By: #### 1 [id number], [id number], [id number] ####[facility] (DEFAULT)[address] [place] [address] 11900 Lymphocytes/100 WBC (Bld) 34 % Normal 14-48 [facility] Comment on above: Performed By: #### 1 [id number], [id number], [id number] ####[facility] (DEFAULT)[address] [place] [address] [place] Abs# 0.6 x10 Normal 0.0-0.8 [facility] Comment on above: Performed By: #### 1 [id number], [id number], [id number] ####[facility] (DEFAULT)[address] [place] [address] 37315 Neut Abs# 3.9 x10 Normal 1.5-9.2 [facility] Comment on above: Performed By: #### 1 [id number], [id number], [id number] ####[facility] (DEFAULT)[address] [place] [address] 73733 Neutrophils/100 WBC (Bld) 53 % Normal 44-88 [facility] Comment on above: Performed By: #### 1 [id number], [id number], [id number] ####[facility] (DEFAULT)[address] [place] [address] 54714 BMP Standardon 01-04-2021 eGFR Non AA >60 Invalid Interpretation Code [facility] Comment on above: Performed By: #### 1 [id number], [id number], [id number] ####[facility] (DEFAULT)[address] [place] [address] 81222 eGFR AA >60 Invalid Interpretation Code [facility] Comment on above: Result Comment: [employer] Repairer medina Kidney disease could be indicated at eGFRs of less than 60 ml/min/1.73m2. Kidney Failure is indicated at less than 15 ml/min/1.73m2 Performed By: #### 1 [id number], [id number], [id number] ####[facility] (DEFAULT)[address] [place] [address] 56655 Anion gap [Moles/Vol] 12.0 mmol/L Normal 5.0-19.0 [facility] Comment on above: Performed By: #### 1 [id number], [id number], [id number] ####[facility] (DEFAULT)[address] [place] [address]7774 Calcium [Mass/Vol] 9.5 mg/dL Normal 8.9-10.3 [facility] Comment on above: Performed By: #### 1 [id number], [id number], [id number] ####[facility] (DEFAULT)[address] [place] [address]36 Chloride [Moles/Vol] 102 mmol/L Normal 101-111 [facility] Comment on above: Performed By: #### 1 [id number], [id number], [id number] ####[facility] (DEFAULT)[address] [place] [address] 58337 CO2 [Moles/Vol] 27 mmol/L Normal 21-32 [facility] Comment on above: Performed By: #### 1 [id number], [id number], [id number] ####[facility] (DEFAULT)[address] [place] [address] 78741 Creatinine [Mass/Vol] 0.77 mg/dL Normal 0.60-1.30 [facility] Comment on above: Performed By: #### 1 [id number], [id number], [id number] ####[facility] (DEFAULT)[address] [place] [address] 20271 Glucose [Mass/Vol] 88.0 mg/dL Normal 74.0-118.0 [facility] Comment on above: Performed By: #### 1 [id number], [id number], [id number] ####[facility] (DEFAULT)[address] [place] [address] Osmolality 275 mOsm/L Invalid Interpretation Code [facility] Comment on above: Performed By: #### 1 [id number], [id number], [id number] ####[facility] (DEFAULT)[address] [place] [address] Potassium [Moles/Vol] 3.4 mmol/L Low 3.6-5.1 [facility] Comment on above: Performed By: #### 1 [id number], [id number], [id number] ####[facility] (DEFAULT)[address] [place] [address] Sodium [Moles/Vol] 138.0 mmol/L Normal 136.0-144.0 [facility] Comment on above: Performed By: #### 1 [id number], [id number], [id number] ####[facility] (DEFAULT)[address] [place] [address] Urea nitrogen [Mass/Vol] 13 mg/dL Normal 8-26 [facility] Comment on above: Performed By: #### 1 [id number], [id number], [id number] ####[facility] (DEFAULT)[address] [place] [address] Urea nitrogen/Creatinine [Mass ratio] 17.0 mg/mg High 4.6-16.2 [facility] Comment on above: Performed By: #### 1 [id number], [id number], [id number] ####[facility] (DEFAULT)[address] [place] [address] CBC w/ Auto Diffon 1 Erythrocyte distribution width (RBC) [Ratio] 13.7 % Normal 11.5-15.0 [facility] Comment on above: Performed By: #### 1 [id number], [id number], [id number] ####[facility] (DEFAULT)[address] [place] [address] Hematocrit (Bld) [Volume fraction] 37.5 % Normal 33.7-40.4 [facility] Comment on above: Performed By: #### 1 [id number], [id number], [id number] ####[facility] (DEFAULT)[address] [place] [address] 72891 Hemoglobin (Bld) [Mass/Vol] 11.7 g/dL Normal 11.3-15.9 [facility] Comment on above: Performed By: #### 1 [id number], [id number], [id number] ####[facility] (DEFAULT)[address] [place] [address] 36236 Instr WBC 7.4 x10 Invalid Interpretation Code [facility] Comment on above: Performed By: #### 1 [id number], [id number], [id number] ####[facility] (DEFAULT)[address] [place] [address] 29512 Man Diff? Auto Normal [facility] Comment on above: Performed By: #### 1 [id number], [id number], [id number] ####[facility] (DEFAULT)[address] [place] [address] 19265 MCH (RBC) [Entitic mass] 26 pg Normal 24-34 [facility] Comment on above: Performed By: #### 1 [id number], [id number], [id number] ####[facility] (DEFAULT)[address] [place] [address] 75008 MCHC (RBC) [Mass/Vol] 31 g/dL Normal 26-37 [facility] Comment on above: Performed By: #### 1 [id number], [id number], [id number] ####[facility] (DEFAULT)[address] [place] [address] 40169 MCV (RBC) [Entitic vol] 84 fL Normal 81-100 [facility] Comment on above: Performed By: #### 1 [id number], [id number], [id number] ####[facility] (DEFAULT)[address] [place] [address] 76733 Platelet 393 x10 Normal 138-427 [facility] Comment on above: Performed By: #### 1 [id number], [id number], [id number] ####[facility] (DEFAULT)[address] [place] [address] 61305 Platelet mean volume (Bld) [Entitic vol] 9.7 fL Normal 6.3-10.2 [facility] Comment on above: Performed By: #### 1 [id number], [id number], [id number] ####[facility] (DEFAULT)[address] [place] [address] RBC 4.48 x10 Normal 3.70-5.30 [facility] Comment on above: Performed By: #### 1 [id number], [id number], [id number] ####[facility] (DEFAULT)[address] [place] [address] WBC 7.4 x10 Normal 3.5-10.5 [facility] Comment on above: Performed By: #### 1 [id number], [id number], [id number] ####[facility] (DEFAULT)[address] [place] [address] [id number] CULTURE, URINE, ROUTINEon CULTURE, URINE, ROUTINE SEE NOTE Abnormal [facility] Comment on above: Result Comment: CULTURE, URINE, ROUTINE Micro Number: [id number] Test Status: Final Specimen Source: Not given [...] loracarbef. Performed By: #### 3 95 #### [facility] [address], [address] [place] [address] Head Of Partner Development: Heraclio Miller MD Vital Signs Date Time Vital Sign Value Performing Clinician Facility 09-29-2022 14:29-0400 Body height 180.34 cm Randy Jaramillo Fliptop Work Phone: [facility] [employer] DO Work Phone: 09-29-2022 14:29-0400 Body mass index (BMI) [Ratio] 31.52 kg/m2 Randy Jaramillo [employer] Work Phone: [facility] [employer] DO Work Phone: 09-29-2022 14:29-0400 Body surface area Derived from formula 2.22 m2 Randy Jaramillo [employer] Work Phone: [facility] [employer] DO Work Phone: 09-29-2022 14:29-0400 Body weight 102.51 kg Randy Jaramillo [employer] Work Phone: [facility] [employer] DO Work Phone: 09-29-2022 14:29-0400 Diastolic blood pressure 88 mm[Hg] Randy Jaramillo F[employer] Work Phone: [facility] [employer] DO Work Phone: 09-29-2022 14:29-0400 Heart rate 76 /min Randy Jaramillo [employer] Work Phone: [facility] [employer] DO Work Phone: 09-29-2022 14:29-0400 Systolic blood pressure 138 mm[Hg] Randy Jaramillo Fliptop Work Phone: [facility] [employer] 250 DO Work Phone: 09-12-2022 14:56-0400 Body height 180.34 cm Randy Jaramillo Furlong Work Phone: [facility] 250 DO Work Phone: 09-12-2022 14:56-0400 Body mass index (BMI) [Ratio] 30.96 kg/m2 Randy G Furlong Work Phone: [facility] 250 DO Work Phone: 09-12-2022 14:56-0400 Body surface area Derived from formula 2.2 m2 Randy G Furlong Work Phone: [facility] 250 DO Work Phone: 09-12-2022 14:56-0400 Body weight 100.7 kg Randy G Furlong Work Phone: [facility] 250 DO Work Phone: 09-12-2022 14:56-0400 Diastolic blood pressure 88 mm[Hg] Randy G Furlong Work Phone: [facility] 250 DO Work Phone: 09-12-2022 14:56-0400 Heart rate 78 /min Randy G Furlong Work Phone: [facility] [employer]esar 250 DO Work Phone: 09-12-2022 14:56-0400 Systolic blood pressure 132 mm[Hg] Randy G Furlong Work Phone: [facility] 250 DO Work Phone: 08-22-2022 09:47-0400 Diastolic blood pressure 100 mm[Hg] Randy G Furlong Work Phone: [facility] 250 DO Work Phone: 08-22-2022 09:47-0400 Systolic blood pressure 142 mm[Hg] Randy G Furlong Work Phone: [facility] [employer]esar 250 DO Work Phone: 08-22-2022 09:46-0400 Body height 180.34 cm Randy G Furlong Work Phone: [facility] [employer]wen 250 DO Work Phone: 08-22-2022 09:46-0400 Body mass index (BMI) [Ratio] 30.68 kg/m2 Randy G Furlong Work Phone: [facility] [employer]esar 250 DO Work Phone: 08-22-2022 09:46-0400 Body surface area Derived from formula 2.2 m2 Randy G Furlong Work Phone: [facility] [employer]wen 250 DO Work Phone: 08-22-2022 09:46-0400 Body weight 99.79 kg Randy G Furlong Work Phone: [facility] [employer] 250 DO Work Phone: 08-22-2022 09:46-0400 Diastolic blood pressure 102 mm[Hg] Randy G Furlong Work Phone: [facility] [employer] 250 DO Work Phone: 08-22-2022 09:46-0400 Heart rate 74 /min Randy G Furlong Work Phone: [facility] [employer] 250 DO Work Phone: 08-22-2022 09:46-0400 Systolic blood pressure 148 mm[Hg] Randy G Furlong Work Phone: [facility] [employer] 250 DO Work Phone: 07-21-2022 08:15-0400 Diastolic blood pressure 88 mm[Hg] Randy G Furlong Work Phone: [facility] 250 DO Work Phone: 07-21-2022 08:15-0400 Systolic blood pressure 122 mm[Hg] Randy G Furlong Work Phone: [facility] 250 DO Work Phone: 07-21-2022 08:14-0400 Body height 180.34 cm Randy G Furlong Work Phone: [facility] 250 DO Work Phone: 07-21-2022 08:14-0400 Body mass index (BMI) [Ratio] 30.82 kg/m2 Randy G Furlong Work Phone: [facility] 250 DO Work Phone: 07-21-2022 08:14-0400 Body surface area Derived from formula 2.2 m2 Randy G Furlong Work Phone: [facility] [employer] 250 DO Work Phone: 07-21-2022 08:14-0400 Body weight 100.25 kg Randy G Furlong Work Phone: [facility] 250 DO Work Phone: 07-21-2022 08:14-0400 Diastolic blood pressure 86 mm[Hg] Randy G Furlong Work Phone: [facility] 250 DO Work Phone: 07-21-2022 08:14-0400 Heart rate 59 /min Randy G Furlong Work Phone: [facility] 250 DO Work Phone: 07-21-2022 08:14-0400 Systolic blood pressure 132 mm[Hg] Randy G Furlong Work Phone: [facility] 250 DO Work Phone: 07-14-2022 14:02-0400 Body temperature 99.32 [degF] Reid Bauer [facility] 07-14-2022 14:02-0400 Diastolic blood pressure 86 mm[Hg] Reid Bauer [facility] 07-14-2022 14:02-0400 Heart rate 76 /min Reid Bauer [facility] 07-14-2022 14:02-0400 SaO2% (BldA) [Mass fraction] 98 % Reid Bauer [facility] 07-14-2022 14:02-0400 Systolic blood pressure 120 mm[Hg] Reid Bauer [facility] 11-11-2021 19:25-0400 Body height 180.34 cm Jesusita Gee Other [facility] [employer] Other 11-11-2021 19:25-0400 Body mass index (BMI) [Ratio] 28.59 kg/m2 Jesusita Gee Other [facility] [employer] Other 11-11-2021 19:25-0400 Body temperature 98.1 [degF] Jesusita eGe Other [facility] Other 11-11-2021 19:25-0400 Body weight 92.99 kg Jesusita Gee Other [facility] Other 11-11-2021 19:25-0400 Respiratory rate 18 /min Jesusita Gee Other [facility] Other 11-11-2021 19:25-0400 SaO2% (BldA) [Mass fraction] 96 % Jesusita Marlen Other [facility] [employer] Other Encounters Encounter Date Encounter Type Care Provider Facility Start: 03-20-2023 End: 03-20-2023 Patient encounter procedure BRITTANI MICHAEL [facility] Start: 10-15-2022 Chart Update Randy Cantu ng Work Phone: [facility] 250 DO Work Phone: Start: 10-14-2022 ambulatory BRITTANI MICHAEL [facility] ty:[id number] Start: 09-29-2022 Patient encounter procedure Randy Calle Work Phone: [facility] 250 DO Work Phone: Start: 09-29-2022 ambulatory Ms. Brittani Michael Facility: Start: 09-12-[address] Christopher Harrison II Facility: Start: 09-12-2022 Office outpatient visit 5 minutes Randy Cantung Work Phone: [facility] 250 DO Work Phone: Start: 08-22-[address] Christopher Harrison II Facility: Start: 08-22-2022 Office outpatient visit 5 minutes Randy Calle Work Phone: [facility] 250 DO Work Phone: Start: 08-18-2022 Chart Update Rnady Cantu ng Work Phone: [facility] 250 DO Work Phone: Start: 08-15-2022 End: 08-16-2022 ambulatory Christopher Harrison [place] [place]: 08-15-2022 End: 08-15-2022 Patient encounter procedure Christopher Harrison [facility] Start: 07-21-[address] Christopher Harrison II Facility: Start: 07-14-2022 End: 07-15-2022 ambulatory Reid Bauer Facility:[facility] Start: 07-14-2022 End: 07-14-2022 Patient encounter procedure Reid Bauer [facility] Start: 12-27-2021 End: 12-27-[address] DAYANA BASHIR Facility:[facility] Start: 12-13-2021 End: 12-14-[address] KAYE JARQUIN Facility:[facility] Start: 11-22-2021 End: 11-22-2021 ambulatory Hua Kraus [place] Facility:[facility] Start: 11-11-2021 End: 11-11-2021 ambulatory Jesusita Gee Other [facility] Other Start: 11-11-2021 Office outpatient visit 15 minutes Jesusita Gee [facility] Start: 08-26-2021 End: 08-28-2021 ambulatory Hua Kraus [place] Facility:[facility] Start: 08-22-2021 End: 08-22-2021 ambulatory [facility] Facility:[facility] Start: 08-13-2021 End: 08-13-2021 ambulatory [facility] Facility:[facility] Start: 01-21-2021 End: 01-21-2021 ambulatory [facility] Facility:[facility] Start: 01-04-2021 End: 01-05-2021 ambulatory [facility] Facility:[facility] Start: 03-26-2018 End: 03-26-2018 Patient encounter procedure Ulisses Gonsalez Facility:[facility] Procedures Date Procedure Procedure Detail Performing Clinician [...] Christopher Harrison, Status: Pen, Time: 2:50 PM [facility] [employer] 250 DO Work Phone: Start: 09-29-2022 FUV, Provider: Brittani Avalos, Status: Pen, Time: 2:30 PM FUV, Provider: Brittani Aavlos, Status: Pen, Time: 2:30 PM [facility] [employer] 250 DO Work Phone: Start: 09-18-2022 FUV, Provider: Christopher Harrison, Status: Pen, Time: 9:10 AM FUV, Provider: Christopher Harrison, Status: Pen, Time: 9:10 AM [facility] [employer] 250 DO Work Phone: Start: 09-12-2022 WILMAN, Provider: Bertha MURGUIA FIRE CLAIMS ADJUSTER 1,[id number], Status: Pen, Time: 9:00 AM BPCHEJENN, Provider: ASHLEIGH MURGUIA FI[employer] CLAIMS ADJUSTER 1,[id number], Status: Pen, Time: 9:00 AM [facility] 250 DO Work Phone: Start: 08-22-2022 WILMAN, Provider: Bertha MURGUIA FIRE CLAIMS ADJUSTER 1,[id number], Status: Pen, Time: 9:00 AM BPLM, Provider: ASHLEIGH MURGUIA FIRE CLAIMS ADJUSTER 1,[id number], Status: Pen, Time: 9:00 AM [facility] 250 DO Work Phone: Immunizations Immunization Date Immunization Notes Care Provider Fa cility 12-06-2020 SARS-CoV-2 (COVID-19 ) mRNA BNT-162b2 vax Reid Bauer [facility] Comment on above: Result Comment: 2022: TPV50 11-15-2020 SARS-CoV-2 (COVID-19 ) mRNA BNT-162b2 vax Reid Bauer [facility] Comment on above: Result Comment: 2022: TPV50 11-20-2019 influenza virus vaccine, unspecified formulation Reid Bauer [facility] 11-14-2019 influenza virus vaccine, unspecified formulation Reid Bauer [facility] 11-14-2019 influenza, seasonal, injectable Randy G Furlong Work Phone: [place] [address] DO Work Phone: 12-13-2018 influenza virus vaccine, unspecified formulation Reid Bauer [facility] 12-13-2018 influenza, seasonal, injectable Randy G Furlong Work Phone: [place] [address] DO Work Phone: 12-10-2017 influenza virus vaccine, unspecified formulation Reid Bauer [facility] 12-10-2017 influenza, injectabl e, quadrivalent, contains preservative Randy G Furlong Work Phone: [place] [address] DO Work Phone: 07-07-2017 tetanus toxoid, redu popeye diphtheria toxoid, and acellular pertussis vaccine, adsorbed Reid Coatspsey [facility] 01-19-2017 influenza virus vaccine, unspecified formulation Reid Bauer [facility] 01-19-2017 influenza, injectabl e, quadrivalent, contains preservative Randy G Furlong Work Phone: [facility] [employer] DO Work Phone: 01-07-2016 influenza virus vaccine, unspecified formulation Reid Coatspsey [facility] 01-07-2016 influenza, injectabl e, quadrivalent, contains preservative Randy G Furlong Work Phone: [facility] [employer] DO Work Phone: 12-01-2015 influenza virus vaccine, unspecified formulation Randy G Furlong Work Phone: [facility] [employer] DO Work Phone: 12-01-2015 influenza, unspecifi ed formulation Reid Howardey [facility] 12-27-2014 influenza virus vaccine, unspecified formulation Reid Howardey [facility] 12-27-2014 influenza, injectabl e, quadrivalent, contains preservative Randy G Furlong Work Phone: [facility] [employer] DO Work Phone: 01-05-2014 influenza virus vaccine, unspecified formulation Reid Juancarlos [facility] 01-05-2014 influenza, injectabl e, quadrivalent, contains preservative Randy G Furlong Work Phone: [facility] [employer] DO Work Phone: 12-29-2012 influenza virus vaccine, unspecified formulation Reid Juancarlos [facility] 12-29-2012 influenza, seasonal, injectable Randy Calle Work Phone: [facility] 250 DO Work Phone: 01-17-2009 novel [id number], preservative-free, injectable Randy Cantung Work Phone: [facility] 250 DO Work Phone: Payers Date Payer Category Payer Self-pay 2018 Unknown [id number] 1970 Unknown [id number] 2.16.84 [id number] 1970 Unknown [id number] 2.16.84 0.1.688878.3.579.2.718 1970 Unknown [id number] 2.16.84 0.1.339135.3.579.2.718 1970 Unknown [id number] 2.16.84 0.1.666992.3.579.2.718 1970 Unknown [id number] 2.16.84 0.1.332470.3.579.2.718 1970 Unknown [id number] 2.16.84 0.1.192647.3.579.2.718 1970 Unknown [id number] 2.16.84 0.1.231204.3.579.2.718 1970 Unknown [id number] 2.16.84 0.1.178952.3.579.2.593 1970 Unknown [id number] 2.16.84 0.1.405931.3.579.2.593 1970 Unknown [id number] 2.16.8 40.1.506065.3.579.2.727 1970 Unknown [id number] 2.16.8 40.1.838055.3.579.2.727 1970 Unknown [id number] 2.16. 840.1.337349.3.579.2.356 1970 Unknown [id number] 2.16. 840.1.126805.3.579.2.356 1970 Unknown [id number] 2.16. 840.1.256764.3.579.2.356 1970 Unknown [id number] 2.16. 840.1.222513.3.579.2.356 1970 Unknown [id number] 2.16.8 40.1.344942.3.579.2.1068 1959 Private Health Insurance [id number] [id number] Unknown [id number] 2.16.840. 1.267750.3.579.2.531 Unknown Unknown [id number] Social History Date Type Detail Facility Unknown if ever smoked [facility] Other Sex Assigned At [facility] Start: 07-14-2022 Tobacco smoking status Never s moked tobacco (finding) [facility] Tobacco smoking status Never Fishe [facility] Social alcohol use Social alcohol use - [facility] 250 DO Work Phone: Functional Status Date Assessment Result Facility 07-14-2022 Functional Status N/A [facility] Clinical Notes 01-18-2021 to 07-14-2022 Note Date & Type Note [...] numbers. This can be done either in Cam[place]onian ([place] or metric measurements. Note that charts and online BMI calculators are available to help you find your BMI quickly and easily without having to do these calculations yourself. To calculate your BMI in [place]onian ([place] measurements: 1.Measure your weight in pounds [...] Centers for Disease Control and Prevention: www.cdc.gov [place] Heart Association: www.heart.org National Heart, Lung, and Blood [place]: www.nhlbi.nih.gov Summary Body mass index (BMI) is a number that is calculated from a person's weight and height. BMI may help estimate how much of a person's weight is composed of fat. BMI can help identify those who may be at higher risk for certain medical problems. BMI can be measured using Cameroonian measurements or metric measurements. BMI charts are used to identify whether you are underweight, normal weight, overweight, or obese. This information is not intended to replace advice given to you by your health care provider. Make sure you discuss any questions you have with your health care provider. Document Revised: 11/09/2019 Document Reviewed: 09/16/2019 [email or web address] Patient Education 2022 [employer]. 07/14/2022 14:20:38 Upper Respiratory Infection, Adult Upper [...] medicines to help relieve symptoms, such as: Fmip-tlh-runieei cold medicines. Cough suppressants. Coughing is a [...] and other clear broths. General instructions Take zuxn-jtz-cncxmax and prescription medicines only as told by [...] and water are not available, use hand x ray service engineer. Avoid touching your mouth, face, eyes, or [...] provider. Document Revised: 09/18/2021 Document Reviewed: 09/18/2021 [email or web address] Patient Education 2022 [employer]. Follow Up Care 07/14/2022 13:35:56 With:BRENNON JAMESON, BOBBY Sifuentes Address:Unknown When: Unknown [facility] 11-12-2021 History general N arrative - Reported Type Medical History heart dysrythmia Medical History Night sweats Medical History Insomnia, unspecified type Medical History hypertension Surgical History hysterectomy dec 2003 Surgical History acl reconstruction right knee n ov 2004 Surgical History leg dec 2014 Hospitalization History see above [facility] Other [id number] Evaluation note* Encounter Date Diagnosis Assessment Notes [...] care provider if no improvement of symptoms. Oct, Bronchitis (ICD-10 - J40) Take medications as [...] weeks for the cough to go away [facility] Other 06-28-2022 Note [id number]06-28-2022 [id number] 08-26-2021 [facility] SURGERY Clinical Discharge Summary PERSON INFORMATION Name IKE JONES Age 50 Years 1970 Sex FEMALE Language Cameroonian PCP RANDY CALLE Marital Status Med Service Ambulatory Surgery Acct# Arrival 08/26/2021 11:01:00 Visit Reason SURGERY- LEFT KNEE SCOPE Acuity LOS 003 04:51 Address: [address] [place] [address] Comment: PROVIDER INFORMATION VITALS INFORMATION Vital Sign Triage Latest Temp Oral Temp Temporal Temp Intravascular Temp Axillary Temp Rectal 02 Sat 100 % 97 % Respiratory Rate Peripheral Pulse Rate Apical Heart Rate Blood Pressure / 90 mmHg / 103 mmHg Comment: MEDICAL INFORMATION Allergy Info: Adhesive Bandage; Demerol Prescriptions Given: acetaminophen-hydrocodone (!-[place] 5 mg-325 mg oral tablet) 1 tab(s) [...] Oral every day. potassium chloride (Potassium Chloride (Thb-Dlda-Lsi 10) 10 mEq oral tablet, extended release) 1 tab(s) Oral every day. traZODone (traZODone 50 mg oral tablet) 1 tab(s) Oral once a day (at bedtime). Medication List: Medications to Continue That Have Not Changed Other Medications acetaminophen-hydrocodone (!-[place] 5 mg-325 mg oral tablet) 1 tab(s) Oral Every 6 hours as needed as needed for pain. carvedilol (carvedilol 12.5 mg oral tablet) 1 tab(s) Oral 2 times a day. cyclobenzaprine (cyclobenzaprine 10 mg oral tablet) 1 tab(s) Oral At bedtime as needed for spasm. hydroCHLOROthiazide (hydroCHLOROthiazide 25 mg oral tablet) 1 tab(s) Oral every day. potassium chloride (Potassium Chloride (Pvj-Vwsz-Nou 10) 10 mEq oral tablet, extended release) 1 tab(s) Oral every day. traZODone (traZODone 50 mg oral tablet) 1 tab(s) Oral once a day (at bedtime). Medications to Continue That Have Not Changed Other Medications acetaminophen-hydrocodone (!-[place] 5 mg-325 mg oral tablet) 1 tab(s) Oral Every 6 hours as needed as needed for pain. carvedilol (carvedilol 12.5 mg oral tablet) 1 tab(s) Oral 2 times a day. cyclobenzaprine (cyclobenzaprine 10 mg oral tablet) 1 tab(s) Oral At bedtime as needed for spasm. hydroCHLOROthiazide (hydroCHLOROthiazide 25 mg oral tablet) 1 tab(s) Oral every day. potassium chloride (Potassium Chloride (Efg-Lsgb-Ork 10) 10 mEq oral tablet, extended release) 1 tab(s) Oral every day. traZODone (traZODone 50 mg oral tablet) 1 tab(s) Oral once a day (at bedtime). Medications to Continue That Have Not Changed Other Medications acetaminophen-hydrocodone (!-[place] 5 mg-325 mg oral tablet) 1 tab(s) Oral Every 6 hours as needed as needed for pain. carvedilol (carvedilol 12.5 mg oral tablet) 1 tab(s) Oral 2 times a day. cyclobenzaprine (cyclobenzaprine 10 mg oral tablet) 1 tab(s) Oral At bedtime as needed for spasm. hydroCHLOROthiazide (hydroCHLOROthiazide 25 mg oral tablet) 1 tab(s) Oral every day. potassium chloride (Potassium Chloride (Miq-Rdhe-Ezd 10) 10 mEq oral tablet, extended release) [...] INFORMATION PATIENT EDUCATION INFORMATION Instructions: [facility] Follow up: DIAGNOSIS Internal derangement of left knee Comment: PHYS DOC [facility]06-16-2022 [facility] SURGERY Clinical Discharge Summary PERSON INFORMATION Name IKE JONES Age 50 Years 1970 Sex FEMALE Language Cameroonian PCP RANDY CALLE Marital Status Med Service Ambulatory Surgery Acct# Arrival Visit Reason SURGERY - LEFT KNEE SCOPE Acuity LOS 010 03:19 Address: [address] [place] [address] Comment: PROVIDER INFORMATION VITALS INFORMATION Vital Sign [...] Oral every day. potassium chloride (Potassium Chloride (Vfx-Dekt-Dux 10) 10 mEq oral tablet, extended release) 1 tab(s) Oral every day. traZODone (traZODone 50 mg oral tablet) 1 tab(s) Oral once a day (at bedtime). Medication List: Medications That Were Updated - Follow Below Instructions Other Medications Updated: potassium chloride (Potassium Chloride (Nng-Yrao-Ica 10) 10 mEq oral tablet, extended release) [...] Other Medications Updated: potassium chloride (Potassium Chloride (Rue-Xefh-Jru 10) 10 mEq oral tablet, extended release) [...] Other Medications Updated: potassium chloride (Potassium Chloride (Hya-Bpxv-Pgh 10) 10 mEq oral tablet, extended release) [...] Follow up: With: Address: When: MYESHA VINSON [address] [place] [address], [place] [id number] [facility] (1) 09/03/2021 9:15 AM With: Address: When: [place] [address] Business (1) Type Location Start Finish [facility] ([facility]) LAB 08/21/2021 4:00 PM 08/21/2021 4:10 PM Confirmed Surgery ([facility]) [facility] Main OR 08/26/2021 1:00 PM 08/26/2021 1:30 PM Confirmed DIAGNOSIS Comment: PHYS DOC [facility]11-24-2021 Note [id number]11-23-2021 [id number] 01-21-2021 [facility] SURGERY Clinical Discharge Summary PERSON INFORMATION Name IKE JONES Age 50 Years 1970 Sex FEMALE Language Cameroonian PCP RANDY CALLE Marital Status Med Service Ambulatory Surgery Acct# Arrival 01/21/2021 06:05:01 Visit Reason SURGERY - RIGHT KNEE ARTHROSCOPY Acuity LOS 032 23:00 Address: [address] [place] [id number] Comment: PROVIDER INFORMATION VITALS INFORMATION Vital Sign [...] Restrictions: DISCHARGE INFORMATION Discharge Disposition: Discharge Location: [facility] REASON INCOMPLETE INFORMATION PATIENT EDUCATION INFORMATION Instructions: Reny- [facility] Follow up: With: Address: When: MYESHA Lockhart [facility], [address] [place] [address] Business (1) 01/30/2021 11:00 AM With: Address: When: R[place] [address] Business (1) DIAGNOSIS Internal derangement of right knee; Tear of meniscus of right knee Comment: PHYS [facility]11-19-2021 NoteSpoke to pt on phone regarding upcoming procedure. pt aware to be here at 6am, NPO after midnight, and need for ride after procedure. pt verbalizes understanding. [Electronically Signed on: 01/18/2021 11:03 EST] Jen Khoury RN [Verified on: 01/18/2021 11:03 EST] Jen [facility] HospitalEvaluation + Plan note No data available for this section [facility] History of Present illness [...] medication regimen. She denies medication side effects. [place] [facility] Work Phone: Hospital Discharge instructions No data available for this section [facility] No data available for this section [facility] Summary Purpose Family History Unknown Family Member Name Dates Details No [...] V.O per Dr. Christopher Harrison MD / Angeles Muellerr RN increase chlorthalidone to 50mg daily and do BP check in 2 weeks. * Patient advised verbalized understanding rx sent * To Dr. Christopher Harrison MD * To Dr. Christopher Dominguez DO in suite * Patient in office for bp check due to hypertension/edema. Patient states edema has resolved. Tolerating the med changes well. Patient bp reviewed per r guillermor rn. * V.O per Dr. Christopher Harrison MD / Angeles Mathews RN increase chlorthalidone to 50mg daily and [...] section and content) DATE CREATED AUTHOR 04/06/2018 [facility] DATE CREATED AUTHOR AUTHOR'S ORGANIZ ATGABBY 07/28/2021 [facility] DATE CREATED AUTHOR AUTHOR'S ORGANIZ ATION 09/22/2021 [facility] DATE CREATED AUTHOR AUTHOR'S ORGANIZ ATION 12/01/2021 [facility] DATE CREATED AUTHOR AUTHOR'S ORGANIZ ATION 01/04/2022 [facility] DATE CREATED AUTHOR AUTHOR'S ORGANIZ ATION 08/16/2022 Anderson La[facility] DATE CREATED AUTHOR AUTHOR'S ORGANIZ ATION 09/30/2022 [facility] DATE CREATED AUTHOR AUTHOR'S ORGANIZ ATION 10/01/2022 [employer] DATE CREATED AUTHOR AUTHOR'S ORGANIZ ATION 10/17/2022 [facility] REASON FOR VISIT (unrecogniz ed section and content) OTTO CORAL, SORE THROAT, CO UGH, CONGESTION Patient Care team informatio n (unrecognized section and content) Personnel Name: Jackson WILLETT MD Address: Address: [address] [place] [address], [facility] [address] Personnel Name: RANDY CALLE DO Address: Address: [facility] E[address] Personnel Name: RANDY CALLE DO Address: Address: [facility] EILEEN AVALOS[address] FOR RECORDS PERTAINING TO PATIENTS WHO ARE [...] BE BASED ON THE PRIMARY CLINICAL RECORDS. [facility] [employer] provides no warranty or guarantee of the accuracy or completeness of information in this document.
--- NOTE | 2023-03-26 07:32 | US_ITS ---
[address] [address] Patient Name: IKE JONES MRN: [id number] date: 1970 Sex: F Assigned Patient Location: US Current Patient Location: US Accession/Order Number: [id number] Exam Date: 03/26/2023 08:20 Report Date: 03/26/2023 09:16 At the request of: EMELIA HANNA Procedure: US breast vac bx w/ clip RT EXAMINATION: US breast vac bx w/ clip RT HISTORY: Breast Mass, Abnormal Mammogram COMPARISON: No relevant comparison available. TECHNIQUE: After obtaining informed consent, an ultrasound-guided biopsy was performed in the usual sterile manner. FINDINGS: IMAGING: Ultrasound BIOPSY NEEDLE: 13-gauge vacuum-assisted core biopsy SPECIMEN TYPE, #, LOCATION: 5 samples, 3.2 cm heterogeneous right breast mass extending from the 2 to 4:00 position MEDICATION: 3 cc 1% buffered lidocaine without epinephrine superficial. 7 cc 1% buffered lidocaine with epinephrine deep COMPLICATIONS: None. LABORATORY: Pending pathology OTHER: Clip successfully placed within the targeted biopsy mass. US/US breast vac bx w/ clip RT IMPRESSION: Uneventful ultrasound guided biopsy. The patient was instructed to obtain follow up care and biopsy results from the referring physician. Electronically authenticated by: HIRAL CAVANAUGH Date: 03/26/2023 09:16
--- NOTE | 2023-03-26 07:32 | MM_ITS ---
Patient Name: IKE JONES MR#: [id number] : 1970 Exam Date: 03/26/2023 Ordering Doctor: EMELIA HANNA RADIOLOGY REPORT PROCEDURE: MM POST BIOPSY RT COMPARISON: MM DIAGNOSTIC MAMMO UNILAT RT, 03/20/2023. INDICATIONS: Breast Mass BREAST COMPOSITION: FINDINGS: BIOPSY MARKER: A metallic marker has been placed in the targeted mass within the lower inner quadrant of the right breast. BREAST FINDINGS: Postprocedural changes Dictated by: Vaibhav Lopez MD on 03/26/2023 at 11:35 Approved by: Vaibhav Lopez MD on 03/26/2023 at 11:35
[2023-03-26 07:40] VITALS: BP 127/90; PULSE 79; O2SAT 100
[2023-03-26] MEDS: LIDOCAINE HCL/EPINEPHRINE 10 ML, SODIUM BICARBONATE 1 MEQ INJ (08:35)
[2023-03-26] MEDS: LIDOCAINE HCL 10 ML, SODIUM BICARBONATE 1 MEQ INJ (08:40)
--- NOTE | 2023-03-26 09:48 | SUR.PREOP ---
03/23/23 Pt instucted on procedure, date, time, and prep. Enc pt to hold Motrin for 2 days prior to biopsy.
== END 2023-03-26 09:05 | disposition home or self-care (01) ==
LOC: US 07:28
PROVIDERS: Radiology Diagnostic Radiology; PCP Nurse Practitioner Family; Visit Provider Nurse Practitioner Family
DX: C50.811 Malignant neoplasm of overlapping sites of right female breast (principal); Z17.0 Estrogen receptor positive status [ER+]
CPT/HCPCS: 19083; 77065; 88305

== ENCOUNTER 2023-04-17 14:54 | Outpatient (OUT) | payer MEDICAID, SELFPAY ==
--- NOTE | 2023-04-17 14:57 | PE_ITS ---
[address] [address] Patient Name: IKE JONES MRN: [id number] date: 1970 Sex: F Assigned Patient Location: PETCT Current Patient Location: PETCT Accession/Order Number: [id number] Exam Date: 04/17/2023 15:55 Report Date: 04/20/2023 11:02 At the request of: AARTI NUNEZ Procedure: PET skull to mid thigh EXAM: NUCLEAR MEDICINE PET/CT HISTORY: Right breast carcinoma. COMPARISON: Ultrasound right breast 03/20/2023. METHOD: 13.38 mCi of F-18 FDG was administered intravenously. Blood sugar level at the time of the injection: 95. At 50 minutes from injection, PET images were obtained from the skull base through the midthigh levels in the axial plane. Reformatted images were performed in the sagittal and coronal planes. A low-dose, noncontrast CT scan was performed for attenuation correction and anatomical localization. A low dose, noncontrast and nondiagnostic CT scan was performed for attenuation correction and anatomic localization. Mediastinal blood pool SUV max 2.9 using the patient's body weight as the normalization method. FINDINGS: HEAD AND NECK: There are no metabolically active lymph nodes in the neck. There is a right maxillary sinus mucus retention cyst versus polyp. CHEST: The major airways are patent. There is no pericardial effusion. There is no evidence of abnormal metabolic uptake in the esophagus. There is a necrotic right breast mass measuring 3.4 x 2.6 cm with a maximum SUV of 16.6. There are other small foci of increased uptake seen in the subareolar right breast. There are multiple right axillary lymph nodes, the largest measuring 3.2 x 1.6 cm with a maximum SUV of 20.2. There are right subpectoral metabolically active subcentimeter lymph nodes. There is a right internal mammary metabolically active lymph node measuring 1.5 x 0.8 cm with a maximum SUV of 22.6. There is no evidence of abnormal metabolic uptake in the lung parenchyma. There are no pleural effusions. There is no pneumothorax. ABDOMEN AND PELVIS: There is no evidence of abnormal metabolic activity in the liver or adrenal glands. There is a metabolically active left groin lymph node measuring 7 x 4 mm with a maximum SUV of 6.8. There is no free fluid. There is physiologic uptake in the urinary system and bowel. There is a nonmetabolically active hyperdense lesion measuring 9 x 4 mm at the right vulva. There is a metabolically active left adnexal lesion measuring 2.9 x 1.5 cm with a maximum SUV of 7.3. MUSCULOSKELETAL: There is no evidence of abnormal metabolically active bony lesions. PET/PET skull to mid thigh IMPRESSION: 1. Necrotic metabolically active right breast mass measuring 3.4 x 2.6 cm. There are other foci of increased uptake in the subareolar right breast consistent with other foci of carcinoma until proven otherwise. Recommend MRI right breast. 2. Multiple right axillary and subpectoral metastatic lymph nodes. 3. Metastatic right internal mammary lymph node. 4. Nonspecific subcentimeter metabolically active left groin lymph node, favor reactive lymph node. 5. Findings suggestive of a calcified or hemorrhagic Bartholin gland cyst. 6. Metabolically active left adnexal lesion measuring 2.9 x 1.5 cm. Recommend ultrasound pelvis. Exclude elevated CA-125. Electronically authenticated by: SHILOH PRETTY Date: 04/20/2023 11:02
--- OUTSIDE RECORDS SUMMARY | 2023-04-17 15:10 | XMS_ITS | CCD ---
Author Name Unknown Address [address] [place] [address] Organization [facility] Care Team Providers Care Biomedical Engineering Director Name Role Phone Jesusita Gee Unavailable RANDY CALLE Primary Care Unavailable Reny, Hua Kraus Admitting Unavail able Hua Oglesby Attending Unavail able Reny, Hua Kruas Admitting Unavail able RANDY CALLE Primary Care Unavailable Reny, Hua Kraus Attending Unavail able RANDY CALLE Primary Care Unavailable Paco Giraldo Attending Unavailable RANDY CALLE Primary Care Unavailable Reny, Hua Kraus Admitting Unavail able RANDY CALLE Consulting Unavailable Armour, Hua Kraus Attending Unavail able Reny, Hua Kraus Admitting Unavail able RANDY CALLE Primary Care Unavailable Hiral Small Consulting Unavailable Reny, Hua Kraus Attending Unavail able RANDY CALLE Primary Care Unavailable Armour, Hua Kraus Admitting Unavail able Reny, Hua [...] Care Unavailable KRYSTEN, DR ANNE Consulting Unavailable PLEASANT HILL, DR HIRAL Meza Consulting Unavailable MILKA, DR KAYE Reynoso Consulting Unavailable Jackson WILLETT Primary Care Physician RANDY CALLE Primary Care Physician [phone] Randy Calle Unavailable Unavailable Unavailable Christy WRIGHT, Dr. Christopher Gtz Attending Unavailable McGuinn II, Dr. Christopher Gtz Referring Unavailable Furlong, Dr. Randy Meier [facility] Care Unava ilable Shakeeluinn II, Dr. Christopher Gtz Attending Unavailable Shakeeluinn II, Dr. Christopher Gtz Referring Unavailable Furlong, Dr. Randy Meier [facility] Care Unava ilable Shakeeluinn II, Dr. Christopher Gtz Attending Unavailable Shakeeluingalo II, Dr. Christopher Gtz Referring Unavailable Furlong, Dr. Randy Meier [facility] Care Unava ilable Alec, Ms. Brittani Cortes Attending Unaziggy taveras Michael, Ms. Brittani Cortes Referring Unavai lable Furlong, Dr. Randy Meier [facility] Care Unava ilable BRITTANI AVALOS Attending Unavailable BRITTANI AVALOS Referring Unavailable Furlong, Dr. Randy Meier [facility] Unava ilable Alva, DO Padilla Primary Care Provider Jacques, VOLUNTEER SERVICES DIRECTOR Amy Attending Provider EVAN THOMPSON Attending Unavailable Randy Calle MD Primary Care Provider Jacques, Amy Attending Unavailable Jacques, May Admitting Unavailable Randy Calle Primary Care Unavailable JACQUES, AMY L Referring Unavailable JACQUES, AMY L Primary Care Unavailable JACQUES, AMY L Referring Unavailable JACQUES, AMY L Primary Care Unavailable JACQUES, AMY L Referring Unavailable JACQUES, AMY L Primary Care Unavailable JACQUES, AMY L Referring Unavailable JACQUES, AMY L Primary Care Unavailable JACQUES, AMY L Referring Unavailable JACQUES, AMY L Primary Care Unavailable JACQUES, AMY L Referring Unavailable JACQUES, AMY L Primary Care Unavailable JACQUES, AMY L Referring Unavailable JACQUES, AMY L Primary Care Unavailable Christopher Harrison Attending Unavailable Christopher Harrison Admitting Unavailable Reid Bauer Attending Unavailable Jackson WILLETT Attending Unavailable Chantal Bear Admitting Unavailable Chantal Bear Attending Unavailable BRITTANI MICHAEL Attending Unavailable BRITTANI MICHAEL Admitting Unavailable CHRISTOPHER HARRISON Attending Unavailable RANDY CALLE Primary Care Unavailab le Allergies Allergy Classification Reported Allergen(s) Allergy Type Date of Onset Reaction(s) Facility (16 sources) Meperidine; Translations: [meperidine] Drug Allergy 9 anaphylaxis, Eruption of skin (disorder), Swelling, Unknown [facility] [place] (1 source) Adhesive bandage; Translations: [Adhesive Bandage] Propensity to adverse reactions (disorder) [facility] Repository (3 sources) Meperidine; Translations: [Demerol] Drug Allergy 3 [facility] Repository (3 sources) Adhesive agent; Translations: [ADHESIVE] Drug allergy (disorder) 5 [facility] Repository (2 sources) Meperidine Drug Allergy 3 Unknown [facility] Healthcare (2 sources) Wound Dressing Adhesive Drug Allergy 3 Unknown [facility] Healthcare (1 source) Meperidine Drug Allergy 2 [facility] Repository Medications Current Medications Medication Drug Class(es) Dates Sig (Normalized) Sig (Original) [id number] 200 actuat albuterol 0.09 mg/actuat metered dose [...] day(s), # 21 cap(s), Refills(s) 0, Pharmacy: [facility]/pharmacy #[id number], 180, cm, 07/14/22 14:05:00 EDT, Height/Length Dosing, 99.7, kg, 07/14/22 14:05:00 EDT, Weight Dosing Start Date: 07/14/22 Stop Date: 07/21/22 Status: Ordered carvedilol 25 mg oral tablet (7 sources) alpha-Adrenergic Bridgette, beta-Adrenergic Bridgette Start: 05-01-2022 carvedilol 25 mg Tab as directed, Refills(s) 0 Start Date: 07/14/22 Status: Ordered Coreg Active cefuroxime 250 mg oral tablet (1 source) Cephalosporin Antibacterial Start: 03-17-2018 Cefuroxime Axetil Active TABLET March 17, 2018 12:00am Chlorthalidone (10 sources) Thiazide-like Diuretic Start: 04-06-2023 chlorthalidone as directed, Refills(s) 0 Start Date: 04/06/23 Status: Ordered Start: 03-03-2023 take 1 tablet by haydee th in the morning chlorthalidone (Hygroton) 25 MG tablet Take 25 mg by mouth in the morning. 0 03/03/2023 Active Start: 07-21-2022 take 1 tablet by haydee th once daily Chlorthalidone 50 MG Oral Tablet TAKE ONE TABLET BY MOUTH DAILY Quantity: 90 Refills: 3 Ordered: 22-Aug-2022 Christopher Harrison MD Start : 21-Jul-2022 Active dose increased Start: 07-21-2022 take 1 tablet by haydee th once daily Chlorthalidone 25 MG Oral Tablet TAKE 1 TABLET Daily Quantity: 90 Refills: 3 Ordered: 21-Jul-2022 Christopher Harrison MD Start : 21-Jul-2022 Active citalopram 10 mg oral tablet (1 source) Serotonin Reuptake Inhibitor Start: 03-17-2018 Citalopram Active TABLET March 17, 2018 12:00am cyclobenzaprine (6 sources) Muscle Relaxant Start: 04-06-2023 cyclobenzaprin e as directed, Refills(s) 0 Start Date: 04/06/23 Status: Ordered take 1 tablet by haydee th three times daily as needed cyclobenzaprine (Flexeril) 10 MG tablet Take 10 mg by mouth 3 (three) times a day as needed 0 Active FeroSul 325 mg oral tablet (3 sources) Start: 07-14-2022 FeroSul 325 mg oral tablet Refills(s) 0 Start Date: 07/14/22 Status: Ordered fluticasone propionate 0.05 mg/actuat metered dose nasal spray (3 sources) Corticosteroid Start: 04-06-2023 Flonase 0.05 m g/inh [place] 1 spray(s), Nasal, BID, Refill(s) 0 Start Date: 04/06/23 Status: Ordered fluticasone (Austen nase) 50 MCG/ACT nasal spray 1 (one) time each day at the same time 0 Active hydroCHLOROthiazide 12.5 mg oral tablet (2 sources) Thiazide Diuretic hydroCHLOROthi azide (HYDRODiuril) 12.5 MG tablet 1 (one) time each day at the same time 0 Active hydroCHLOROthiazide 12.5 mg / lisinopril 20 mg oral tablet (8 sources) Thiazide Diuretic, Angiotensin Converting Enzyme Inhibitor Start: 06-18-19 hydrochlorothiazide-lisinop ril 12.5 mg-20 mg Tab Refill(s) 0, as directed Start Date: 07/14/22 Status: Ordered lisinopril-hydro CHLOROthiazide 20-25 MG tablet 1 (one) time each day at the same time 0 Active lisinopril 20 mg oral tablet (7 sources) Angiotensin Converting Enzyme Inhibitor Start: 04-10-2023 take 1 tablet by mouth once daily lisinopril 20 mg Tab 20 mg = 1 tab(s), Oral, Daily, Refills(s) 0 Start Date: 04/10/23 Status: Ordered Start: 07-21-2022 take 1 tablet by haydee th once daily Lisinopril 20 MG Oral Tablet TAKE 1 TABLET DAILY. Quantity: 90 Refills: 3 Ordered: 21-Jul-2022 Christopher Harrison MD Start : 21-Jul-2022 Active Losartan (1 source) Angiotensin 2 Receptor Bridgette Cozaar Active methylPREDNISolone 4 mg oral tablet (1 source) Corticosteroid Start: 11-12-19 methylPREDNISolone 4 MG as directed Orally Once a day for 6 days Oct, Active Metoprolol (11 sources) beta-Adrenergic Bridgette Start: 04-06-19 metoprolol as directed, Refills(s) 0 Start Date: 04/06/23 Status: Ordered Start: 07-21-2022 take 1 tablet by haydee th once daily Metoprolol Succinate ER 100 MG Oral Tablet Extended Release 24 Hour Take 1 tablet daily Quantity: 90 Refills: 3 Ordered: 21-Jul-2022 Christopher Harrison MD Start : 21-Jul-2022 Active Start: 03-17-2018 Metoprolol Suc cinate (Toprol Xl) 25 mg Tablet Extended Release 24 Hr Active March 17, 2018 12:00am take 1 tablet by haydee th every twenty-four hours in the morning metoprolol succinate XL (Toprol-XL) 100 MG 24 hr tablet Take 100 mg by mouth in the morning. 0 Active Spironolactone (4 sources) Aldosterone Antagonist Start: 04-06-2023 spirono lactone as directed, Refills(s) 0 Start Date: 04/06/23 Status: Ordered Start: 03-26-2023 End: 03-25-2024 take 1 tablet by mouth in the morning spironolactone (Aldactone) 25 MG tablet Take 25 mg by mouth in the morning. 0 03/26/2023 03/25/2024 Active traZODone hydrochloride 50 mg oral tablet (15 sources) Serotonin Reuptake Inhibitor Start: 03-17-2018 take 1 mg by mouth twice daily traZODONE 50 mg Tab mg tab(s), Oral, BID Start Date: 03/30/20 Status: Ordered traZODone HCl Ac tive Completed/Discontinued Medications Medication Drug Class(es) Dates Sig (Normalized) Sig (Original) potassium chloride 20 meq extended release oral tablet (9 sources) Start: 03-22-2023 take 1 tablet by mouth twice daily at bedtime Start: 08-18-2022 take 1 tablet by haydee once daily Klor-Con M20 20 MEQ Oral Tablet Extended Release Take 1 tablet daily Quantity: 90 Refills: 3 Ordered: 18-Aug-2022 Christopher Harrison MD Start : 18-Aug-2022 Active take [address] [facility] once daily potassium chloride CR (Klor-Con) 10 MEQ ER tablet TAKE 4 TABLETS (40 MEQ) BY MOUTH ONCE DAILY FOR 2 DAYS. DO NOT CRUSH, CHEW, OR SPLIT. 0 Active Problems Active Problems Problem Classification Problem Date Documented Date Episodic/Chronic Cancer of breast (4 sources) Infiltrating duct carcinoma of breast; Translations: [Malignant neoplasm of unspecified site of right female breast] Onset: 04-14-2023 04-02-2023 Chronic Cardiac dysrhythmias (10 sources) Cardiac arrhythmia 03-30-2020 Chronic Essential hypertension (11 sources) Hypertensive disorder; Translations: [Unspecified essential hypertension] Onset: 10-14-2022 04-06-2023 Chronic Fluid and electrolyte disorders (6 sources) Hypokalemia; Translations: [Hypopotassemia] Episodic Headache; including migraine (2 sources) Migraine 04-06-2023 Chronic Immunizations and screening for infectious disease (1 source) Encounter for screening for human papillomavirus (HPV); Translations: [ENC SCREENING HUMAN PAPILLOMAVIRUS] Onset: 12-29-2021 Episodic Other nutritional; endocrine; and metabolic disorders (1 source) Obese class I; Translations: [Body mass index (BMI) 30.0-30.9, adult] Onset: 07-14-2022 Chronic Other nutritional; endocrine; and metabolic disorders (10 sources) Obesity; Translations: [Obesity, unspecified] Onset: 07-14-2022 Chronic Other nutritional; endocrine; and metabolic disorders (1 source) Body mass index 30+ - obesity 04-10-2023 Chronic Other screening for suspected conditions (not mental disorders or infectious disease) (10 sources) Encounter for screening for malignant neoplasm of cervix; Translations: [Encounter for screening mammogram for malignant neoplasm of breast] Onset: 12-13-2021 Episodic Other skin disorders (5 sources) Epidermoid cyst of skin 03-30-2020 Episodic Other upper respiratory infections (1 source) Acute upper respiratory infection; Translations: [Acute upper respiratory infection, unspecified] Onset: 07-14-2022 Episodic Residual codes; unclassified (6 sources) Edema; Translations: [Edema] Episodic Residual codes; unclassified (1 source) Edema, unspecified; Translations: [Edema, unspecified] Onset: 10-14-2022 Episodic Residual codes; unclassified (1 source) Pain, unspecified; Translations: [Pain, unspecified] Onset: 04-10-2023 Episodic Unclassified (1 source) Contact with and [...] covid-19 Z20.822 Onset: 11-11-2021 Resolved: 11-11-2021 Unclassified (5 sources) Excision of lipoma 03-30-2020 Unclassified (6 sources) Never smoked tobacco; Translations: [Never a smoker] Results Test Name Value Interpretation Reference Range Facility Consent for Procedure/Surger yon 04-14-2023 Consent for Procedure/Surgery [id number] IFF Normal [facility] Ambulatory Visit Summaryon 0 04-10-2023 Ambulatory Visit Summary [facility] Eason :1970 Visit Date:04/10/2023 Ambulatory Visit Instructions Your Care Team Attending Physician - BRENNON JAMESON, Jackson Reynoso Primary Care Physician - RANDY CALLE DO This Is Your Medications List Contact prescribing physician if questions or concerns chlorthalidone cyclobenzaprine lisinopril (lisinopril 20 mg Tab) metoprolol spironolactone trazodone (traZODONE 50 mg Tab) Procedures Performed Abdominal hysterectomy, Biopsy of breast, Biopsy of breast, Core needle biopsy of breast using ultrasound (US) guidance, Cystoscopy, Lipoma of back, Meniscectomy, Repair of anterior cruciate ligament of knee joint, Tonsillectomy. Discharge Vitals Heart Rate (Peripheral) 72 Respiratory Rate 16 Blood Pressure 116/80 Height 180 cm Height 71 in Weight 100.4 kg Weight 220.88 lb BMI 30.99 Medications What How Much When Instructions Unchanged chlorthalidone as directed Contact prescribing physician if questions or concerns Unchanged cyclobenzaprine as directed Contact prescribing physician if questions or concerns Unchanged lisinopril (lisinopril 20 mg Tab) 1 Tablets By Mouth Every day Contact prescribing physician if questions or concerns Unchanged metoprolol as directed Contact prescribing physician if questions or concerns Unchanged spironolactone as directed Contact prescribing physician if questions or concerns Unchanged trazodone (traZODONE 50 mg Tab) By Mouth 2 times a day Contact prescribing physician if questions or concerns Medications and Immunizations Administered Not Given influenza virus vaccine, inactivated, Patient Refuses Allergies Demerol (Rash) Problems Ongoing - Any problem that you are currently receiving treatment for. BMI 30.0-30.9,adult Dysrhythmia, cardiac Epidermal cyst Hypertensive disorder Migraines Obesity Historical - Any problem that you are no longer receiving treatment for. Cardiac dysrhythmia Excision of lipoma Patient Survey You may receive a survey via text or e-mail asking about your office visit. Please share your experience with us by completing your survey. We appreciate your feedback and thank you for choosing us for your care. Normal [facility] Consultation Noteon 04-10-19 24 Consultation Note [id number] IFF Normal [facility] Lab Reportson 04-10-2023 Lab Reports [id number] IFF Normal [facility] Outside Mammographyon 2023 Outside Mammography [id number] IFF Normal [facility] Pathology Noteon 04-07-2023 Pathology Note [id number] IFF Normal [facility] RAD - Ultrasound Reporton RAD - Ultrasound Report [id number] IFF Normal [facility] BMPon 04-06-2023 Anion gap [Moles/Vol] 10 mmol/L Normal 6-16 [facility] Comment on above: Performed By: #### 2 [id number], [id number] ####[facility] [address] [place] [address] BUN/Creat Ratio 18 No Units Normal 10-20 [facility] Comment on above: Performed By: #### 2 [id number], [id number] ####[facility] [address] [place] [address] Calcium [Mass/Vol] 10.5 mg/dL Normal 8.9-11.1 [facility] Comment on above: Performed By: #### 2 [id number], [id number] ####[facility] [address] [place] [address] Chloride [Moles/Vol] 101 mmol/L Normal 101-111 [facility] Comment on above: Performed By: #### 2 [id number], [id number] ####[facility] [address] [place] [address] CO2 [Moles/Vol] 32 mmol/L High 21-31 [facility] Comment on above: Performed By: #### 2 [id number], [id number] ####[facility] [address] [place] [address] Creatinine [Mass/Vol] 1.0 mg/dL Normal 0.5-1.3 [facility] Comment on above: Performed By: #### 2 [id number], [id number] ####[facility] [address] [place] [address] Glucose [Mass/Vol] 90 mg/dL Normal 55-199 [facility] Comment on above: Performed By: #### 2 [id number], [id number] ####[facility] [address] [place] [address] Potassium [Moles/Vol] 3.4 mmol/L Low 3.5-5.3 [facility] Comment on above: Performed By: #### 2 460014, [id number] ####[facility] [address] [place] [address] Sodium [Moles/Vol] 140 mmol/L Normal 135-145 [facility] Comment on above: Performed By: #### 2 [id number], [id number] ####[facility] [address] [place] [address] Urea nitrogen [Mass/Vol] 18 mg/dL Normal 5-21 [facility] Comment on above: Performed By: #### 2 [id number], [id number] ####[facility] [address] [place] [address] CHEMISTRYOrdered By: SYSTEM SYSTEM on 04-06-2023 Anion gap [Moles/Vol] 10 mmol/L Normal 6 - 16 mEq/L Remisol Chem Calcium [Mass/Vol] 10.5 mg/dL Normal 8.9 - 11. 1 mg/dL [facility] Chloride [Moles/Vol] 101 mmol/L Normal 101 - 111 mmol/L [facility] CO2 [Moles/Vol] 32 mmol/L High 21 - 31 mmol/L [facility] Creatinine [Mass/Vol] 1.0 mg/dL Normal 0.5 - 1.3 mg/dL [facility] eGFR 68 mL/min/1.73 m2 Normal >=59mL/min /1 .73 m2 [facility] Glucose [Mass/Vol] 90 mg/dL Normal 55 - 199 mg/dL [facility] Potassium [Moles/Vol] 3.4 mmol/L Low 3.5 - 5.3 mmol/L [facility] Sodium [Moles/Vol] 140 mmol/L Normal 135 - 145 mmol/L [facility] Urea nitrogen [Mass/Vol] 18 mg/dL Normal 5 - 21 mg/dL [facility] Urea nitrogen/Creatinine [Mass ratio] 18 mg/mg Normal 10 - 20 [facility] Consent for Treatmenton Consent for Treatment [id number] IFF Normal [facility] Physician Orderon 04-06-2023 Physician Order [id number] TIFF Normal [facility] eGFRon 04-06-2023 eGFR 68 mL/min/1.73 m2 Normal >=59 [facility] Comment on above: Order Comment: Order added by Discern Expert. Performed By: #### 2 [id number], [id number] ####[facility] [address] [place] [address] [place] 03-26-2023 L Specimen: [id number] Received: 03/26/232 Status: EUGENIO Berrios Num: [id number] Spec Type: Surgical Subm Dr: Leidy Lopez Tissues: A BREAST CORE NO CALCS (RT BREAST MASS 4:00) Procedures: HE/2, Gross/Micro L4, CK5 6, E CADHERIN, ER, p63, NC Age/ Patient Sex Location Account Attending Physician Yasmin Jones 52/F [place] [id number] Amy Hanna, VOLUNTEER SERVICES DIRECTOR MACHINIST HELPER-C SPEC NUM: [id number] RECD: 03/26/23 STATUS: EUGENIO BERRIOS NUM: [id number] AMY: 03/26/23 DR: Leidy Lopez ENTERED: 03/26/[address]: Edwin Palacios SPEC TYPE: Surgical DEPT: JORGE ALBERTO ROSALES ORDERED: HE/2, Gross/Micro L4, CK5 6, E CADHERIN, ER, p63, NC ORDERED: HE/2, Gross/Micro L4, CK5 6, E CADHERIN, ER, p63, NC Supplemental Report Addendum 1 Entered: 04/02/237 Supplemental for findings of HER2 by immunohistochemistry from [facility]: -Negative, Score 0 Addendum Signed (signature on file) Elvis Mcgregor MD 04/02/23 4222 Pathological Diagnosis Right breast 4:00 mass, biopsy: Invasive Ductal Carcinoma Grade 3 (combined Score Of 8/9). Histologic Grade: Grade 3 Glandular/tubular Differentiation: 3 Nuclear Pleomorphism: 3 Mitotic Rate: 2 Overall Score: 8 Breast Hormone Profile Specimen: [id number] Received: 03/26/23 Status: EUGENIO Berrios Num: [id number] Spec Type: Surgical Subm Dr: Leidy Lopez Tissues: A BREAST CORE NO CALCS (RT BREAST MASS 4:00) Procedures: HE/2, Gross/Micro L4, CK5 6, E CADHERIN, ER, p63, NC Patient: Yasmin Jones [id number] (Continued) Specimen: [id number] Received: 03/26/23 (Continued) Pathological Diagnosis (Continued) Signed (signature on file) Lazarus Chiang MD 03/31/23 1747 Specimen: [id number] Received: 03/26/23 Status: EUGENIO Berrios Num: [id number] Spec Type: Surgical Subm Dr: Leidy Lopez Tissues: A BREAST CORE NO CALCS (RT BREAST MASS 4:00) Procedures: HE/2, Gross/Micro L4, CK5 6, E CADHERIN, ER, p63, NC Patient: Yasmin Jones [id number] (Continued) Specimen: [id number] Received: 03/26/23-1302 (Continued) Pathological Diagnosis (Continued) ER: Weakly Positive NC: Negative Her2: Pending Clinical Information Mass Gross Description Received in formalin labeled with the patient's name, date of and right breast 4:00 mass is a is a 2.2 x 0.9 x 0.2 cm aggregate of cores of fibrofatty breast tissue. Entirely submitted in one cassette labeled A1. Time of excision: 8:41 AM 03/26/2023, time in formalin: 8:43 AM 03/26/2023, time out of formalin: 11:30 PM 03/26/2023. Cold Ischemia and Fixation Time meets the requirements specified in the latest version of the ASCO/CAP guidelines: Yes. Cold Ischemic Time: 0.03 Formalin Fixation Time: 14 CPT Codes 36236 Specimen: [id number] Received: 03/26/23-1301 Status: EUGENIO Berrios Num: [id number] Spec Type: Surgical Subm Dr: Leidy Lopez Tissues: A BREAST CORE NO CALCS (RT BREAST MASS 4:00) Procedures: HE/2, Gross/Micro L4, CK5 6, E CADHERIN, ER, p63, NC Patient: Yasmin Jones [id number] (Continued) Signed (signature on file) Lazarus Chiang MD 03/31/[address] [facility] BMPon 03-20-2023 Anion gap [Moles/Vol] 9 mmol/L Normal 6-16 [facility] Comment on above: Performed By: #### 1 [id number], [id number] ####[facility] [address] [place] [address] BUN/Creat Ratio 26 No Units High 10-20 [facility] Comment on above: Performed By: #### 1 [id number], [id number] ####[facility] [address] [place] [address] Calcium [Mass/Vol] 9.4 mg/dL Normal 8.9-11.1 [facility] Comment on above: Performed By: #### 1 [id number], [id number] ####[facility] [address] [place] [address] Chloride [Moles/Vol] 103 mmol/L Normal 101-111 [facility] Comment on above: Performed By: #### 1 [id number], [id number] ####[facility] [address] [place] [facility] [address] CO2 [Moles/Vol] 32 mmol/L High 21-31 [facility] Comment on above: Performed By: #### 1 [id number], [id number] ####[facility] [address] [place] [address] Creatinine [Mass/Vol] 0.7 mg/dL Normal 0.5-1.3 [facility] Comment on above: Performed By: #### 1 [id number], [id number] ####[facility] [address] [place] [address] Glucose [Mass/Vol] 88 mg/dL Normal 55-199 [facility] Comment on above: Performed By: #### 1 [id number], [id number] ####[facility] [address] [place] [address] Potassium [Moles/Vol] 2.8 mmol/L Abnormal 3.5-5.3 [facility] Comment on above: Performed By: #### 1 [id number], [id number] ####[facility] [address] [facility] [place] [address] Sodium [Moles/Vol] 141 mmol/L Normal 135-145 [facility] Comment on above: Performed By: #### 1 [id number], [id number] ####[facility] [address] [place] [address] Urea nitrogen [Mass/Vol] 18 mg/dL Normal 5-21 [facility] Comment on above: Performed By: #### 1 [id number], [id number] ####[facility] [facility] [address] [place] [address] CHEMISTRYOrdered By: SYSTEM SYSTEM on 03-20-2023 Anion [...] mg/mg High 10 - 20 Remisol Chem Consent for Treatmenton 03-02 Consent for Treatment [id number] IFF Normal [facility] Physician Orderon 03-20-2023 Physician Order [id number]#1.00 TIFF Normal [facility] eGFRon 03-20-2023 eGFR 104 mL/min/1.73 m2 Normal >=59 [facility] Comment on above: Order Comment: Order added by Discern Expert. Performed By: #### 1 [id number], [id number] ####[facility] [address] [place] [address] [address] Cardiac Scoring Normal -[facility] 250 DO Work Phone: Office Visit (Cardiology)on 09-29-2022 Follow-up visit Diagnoses/Problems Assessed Hypertension (401.9) (I10) Edema (782.3) (R60.9) Class 1 obesity with body mass index (BMI) of 31.0 to 31.9 in adult (278.00,V85.31) (E66.9,Z68.31) Orders Class 1 obesity with body mass index (BMI) of 31.0 to 31.9 in adult Healthy Weight Tips; Status:Complete; Done: [id number] Edema, Hypertension Basic Metabolic Panel; Status:Active; Requested for:[id number]; CT Cardiac Scoring; Status:Active; Requested for:[id number]; Patient taking Metformin or Derivatives? : No [...] Complaint Blood pressure f/u : 'doing fine' YASMIN JONES is being seen for a 3 [...] and no PND. Vitals Vital Signs Recorded: 29Sep2022 02:29PM Heart Rate76, L Radial Wwisqolc325, LUE, Sitting Ktibdgztr75, LUE, Sitting Height5 ft 11 in Kcytwi437 lb BMI Kwqumaqgol22.52 kg/m2 BSA Calculated2.22 Tobacco Useb) No PHQ-2 #1. Over the last 2 weeks have you felt down, depressed or hopeless? (If yes, answer PHQ-9 below)No PHQ-2 #2. Over the last 2 weeks have you felt little inter (more content not included)... Normal [employer] Tobacco Screening.on 023 Adult depression screening assessment No [facility] 250 DO Work Phone: Fall risk assessment c) Not medically indicated [facility] [employer] 250 DO Work Phone: Tobacco use status [facility] b) No [facility] [employer] 250 DO Work Phone: Tobacco Screening.on 023 Tobacco use status [facility] b) No [facility] [employer] 250 DO Work Phone: BMPon 08-15-2022 Anion gap [Moles/Vol] 10 mmol/L Normal 6-16 [facility] Comment on above: Performed By: #### 2 [id number], [id number], [id number] ####[facility] [address] [place] [address] Calcium [Mass/Vol] 9.7 mg/dL Normal 8.9-11.1 [facility] Comment on above: Performed By: #### 2 351930, [id number], [id number] ####[facility] [address] [place] [address] Chloride [Moles/Vol] 102 mmol/L Normal 101-111 [facility] Comment on above: Performed By: #### 2 017956, [id number], [id number] ####[facility] [address] [place] [address] CO2 [Moles/Vol] 29 mmol/L Normal 21-31 [facility] Comment on above: Performed By: #### 2 098266, [id number], [id number] ####[facility] [address] [place] [address] Creatinine [Mass/Vol] 0.7 mg/dL Normal 0.5-1.3 [facility] Comment on above: Performed By: #### 2 557588, [id number], [id number] ####[facility] [address] [place] [address] Glucose [Mass/Vol] 92 mg/dL Normal 55-199 [facility] Comment on above: Result Comment: If t his glucose result represents a fasting glucose, interpretation should refer to the following reference range: 55-99 mg/dL Performed By: #### 2 898974, [id number], [id number] ####[facility] [address] [place] [address] Potassium [Moles/Vol] 2.9 mmol/L Low 3.5-5.3 [facility] Comment on above: Performed By: #### 2 858849, [id number], [id number] ####[facility] [address] [place] [address] Sodium [Moles/Vol] 138 mmol/L Normal 135-145 [facility] Comment on above: Performed By: #### 2 421521, [id number], 40570574 ####[facility] [address] [place] [address] Urea nitrogen [Mass/Vol] 15 mg/dL Normal 5-21 [facility] Comment on above: Performed By: #### 2 636759, [id number], [id number] ####[facility] [address] [place] [address] Urea nitrogen/Creatinine [Mass ratio] 21 No Units High 10-20 [facility] Comment on above: Performed By: #### 2 342571, [id number], [id number] ####[facility] [address] [place] [address] BNPon 08-15-2022 Int Ctr BNP Pass Normal [facility] Comment on above: Performed By: #### 2 129181, [id number], [id number] ####[facility] [address] [place] [address] Natriuretic peptide B (Bld) [Mass/Vol] 23 pg/mL Normal 5-80 [facility] Comment on above: Performed By: #### 2 692238, [id number], [id number] ####[facility] [address] [place] [address] CHEMISTRYOrdered By: SYSTEM SYSTEM on 08-15-2022 Anion gap [Moles/Vol] 10 mmol/L Normal 6 - 16 mEq/L [facility] Remisol Calcium [Mass/Vol] 9.7 mg/dL Normal 8.9 - 11. 1 mg/dL [facility] Remisol Chloride [Moles/Vol] 102 mmol/L Normal 101 - 111 mmol/L [facility] Remisol Creatinine [Mass/Vol] 0.7 mg/dL Normal 0.5 - 1.3 mg/dL [facility] Remisol GFR/1.73 sq M.predicted among non-blacks MDRD (S/P/Bld) [Vol rate/Area] 105 mL/min/1.73 m2 Normal >=59mL/min/1 .73 m2 [facility] Chem S Glucose [Mass/Vol] 92 mg/dL Normal 55 - 199 mg/dL [facility] Remisol Potassium [Moles/Vol] 2.9 mmol/L Low 3.5 - 5.3 mmol/L [facility] Remisol Sodium [Moles/Vol] 138 mmol/L Normal 135 - 145 mmol/L [facility] Remisol Urea nitrogen [Mass/Vol] 15 mg/dL Normal 5 - 21 mg/dL [facility] Remisol Urea nitrogen/Creatinine [Mass ratio] 21 mg/mg High 10 - 20 FT Remisol Consent for Treatmenton 07-31 Consent for Treatment [id number]#1.00C D:127 Normal [facility] Laboratory - Chemistry and C hemistry - challengeOrdered By: SYSTEM SYSTEM on 08-15-2022 CO2 [Moles/Vol] 29 mmol/L Normal 21-31 [facility] Laboratory - Chemistry and C hemistry - challengeOrdered By: Jackson Bettencourt on 08-15-2022 Natriuretic peptide B (Bld) [Mass/Vol] 23 pg/mL Normal 5-80 [facility] HemeManS S No Panel Informationon 08-15 105 {mL/min/1.73_m2} Normal >=59 [facility] 250 DO Work Phone: Comment on above: Chronic kidney disea se could be indicated at eGFR's of less than 60 mL/min/1.73m2. Kidney failure is indicated at less than 15 mL/min/1.73m2. 10 {mEq/L} Normal 6-16 [facility] 250 DO Work Phone: 102 mmol/L Normal 101-111 [facility] 250 DO Work Phone: 2.9 mmol/L below low threshold 3.5-5.3 [facility] 250 DO Work Phone: 138 mmol/L Normal 135-145 [facility] 250 DO Work Phone: 9.7 mg/dL Normal 8.9-11.1 [facility] 250 DO Work Phone: 21 {No_Units} above high threshold 10-20 [facility] 250 DO Work Phone: 0.7 mg/dL Normal 0.5-1.3 [facility] 250 DO Work Phone: 15 mg/dL Normal 5-21 [facility] 250 DO Work Phone: 92 mg/dL Normal 55-199 [facility] 250 DO Work Phone: Comment on above: If this glucose resu lt represents a fasting glucose, interpretation should refer to the following reference range: 55-99 mg/dL Pass Normal [facility] 250 DO Work Phone: Physician Orderon 08-15-2022 Physician Order [id number]#1.00C D:127 Normal [facility] eGFRon 08-15-2022 GFR/1.73 sq M.predicted among non-blacks MDRD (S/P/Bld) [Vol rate/Area] 105 mL/min/1.73 m2 Normal >=59 [facility] Comment on above: Order Comment: Order added by Discern Expert. Result Comment: Generator Operator medina kidney disease could be indicated at eGFR's of less than 60 mL/min/1.73m2. Kidney failure is indicated at less than 15 mL/min/1.73m2. Performed By: #### 2 [id number], [id number], [id number] ####[facility] [address] [place] [address] Office Visit (Cardiology)on 07-21-2022 Follow-up visit Diagnoses/Problems [...] a smoker Tobacco Use Screening; Status:Complete; Done: [id number] Tobacco Use Screening; Status:Complete; Done: [id number] Unlinked Stop: Coreg 25 MG Oral Tablet (Carvedilol) Stop: Lisinopril-hydroCHLOROt hiazide 20-12.5 MG Oral Tablet Patient Instructions Please [...] Follow up in 3 months Chief Complaint YASMIN JONES is being seen for an initial [...] MG Oral TabletTAKE 1 TABLET Twice daily Lisinopril-hydroCHLOROt hiazide 20-12.5 MG Oral TabletTAKE 1 TABLET DAILY. [...] Vital Signs Recorded: 21Jul2022 08:15AMRecorded: 21Jul2022 08:14AM Eomxxixc561, RUE, Hsnknzq312, LUE, Sitting Ylcgilegi58, RUE, Ejwfqfi27, LUE, Sitting Heart Rate59, Apical Height5 ft 11 in Xucojr861 lb BMI Oezkfmgguj54.82 kg/m2 BSA Calculated2.2 Tobacco Useb) No PHQ-2 [...] Neck: ne (more content not included)... Normal [employer] Tobacco Screening.on 023 Adult depression screening assessment No [facility] 250 DO Work Phone: Fall risk assessment a) No falls within the last year [facility] 250 DO Work Phone: Tobacco use status [facility] b) No [facility] 250 DO Work Phone: Family Medicine Office/Clini [...] day(s), # 21 cap(s), Refills(s) 0, Pharmacy: [facility]/pharmacy #[id number], 180, cm, 07/14/22 14:05:00 EDT, Height/Length [...] mg Tab FeroSul 325 mg oral tablet hydrochlorothiazide-lis inopril 12.5 mg-20 mg Tab Tessalon 100 mg [...] diphtheria/pertussis, riri (more content not included)... Normal [facility] Comment on above: Result Comment: Elec [...] to help relieve symptoms, such as: ? Pnbt-ege-ywucrpb cold medicines. ? Cough suppressants. Coughing is [...] other clear broths. General instructions ? Take brtk-eqc-kojkybz and prescription medicines only as told by [...] and water are not available, use hand lead cargoman. ? Avoid touching your mouth, face, eyes, [...] Get help (more content not included)... Normal [facility] PAP ACOG PANEL 2: 30 to 65on 01-03-2022 . . Normal [facility] Comment on above: Result Comment: Perf ormed at: WB Performed By: #### 4 [id number] #### [facility] [address] [address] [address] Daniel Mcgregor Age Gdln ACOG Testing 30-65 Normal [facility] Comment on above: Performed By: #### 4 [id number] #### [facility] [address] [address] [address] Daniel Mcgregor DIAGNOSIS: Comment [facility] Comment on above: Result Comment: NEGA TIVE FOR INTRAEPITHELIAL LESION OR MALIGNANCY. Performed at: WB Performed By: #### 4 [id number] #### [facility] [address] [place] [address] Dr. Daniel Mcgregor HPV Aptima Negative Normal Negative [facility] Comment on above: Result Comment: This nucleic acid amplification test detects fourteen high-risk HPV types (16,18,31,33,35,39,45,51,52,56,58,59,66,68) without differentiation. Performed at: =G Performed By: #### 4 [id number] #### [facility] [address] [address] [address] Daniel Mcgregor HPV Genotype Reflex Comment Normal [facility] Comment on above: Result Comment: Crit eria not met, HPV Genotype not performed. Performed at: WB Performed By: #### 4 [id number] #### [facility] [address] [place] [address] Dr. Daniel Mcgregor Methodology: Comment Normal [facility] Comment on above: Result Comment: This liquid based ThinPrep(R) pap test was screened with the use of an image guided system. Performed at: WB Performed By: #### 4 [id number] #### [facility] [address] [place] [address] Dr. Daniel Mcgregor Note: Comment Normal [facility] Comment on above: Result Comment: The Pap smear is a screening test designed to aid in the detection of premalignant and malignant conditions of the uterine cervix. It is not a diagnostic procedure and should not be used as the sole means of detecting cervical cancer. Both false-positive and false-negative reports do occur. . Performed at: WB Performed By: #### 4 [id number] #### [facility] [address] [place] [address] Dr. Daniel Mcgregor Performed by: Comment Normal [facility] Comment on above: Result Comment: Roxann Ambriz, Support Services Specialist (ASCP) Performed at: WB Performed By: #### 4 [id number] #### [facility] [address] [place] [address] Dr. Daniel Mcgregor Specimen adequacy: Comment Normal [facility] Comment on above: Result Comment: Sati sfactory for evaluation. No endocervical component is identified. Performed at: WB Performed By: #### 4 [id number] #### [facility] [id number] Daniel Mcgregor MG MAMM SCREEN 3D VONNIE CADon 12-13-2021 MG MAMM SCREEN 3D VONNIE CAD Patient: YASMIN JONES Exam Date: 12/13/2021 : 1970 Gender:F Ordering : DR KAYE JARQUIN Admission #: [id number] Family : DR DAYANA BASHIR . Order #: [id number] CLICK HERE TO VIEW EXAM RADIOLOGY REPORT [...] Treatments None Family Cancers None LOCATION: [facility] BREAST COMPOSITION: Heterogeneously dense,which may obscure [...] MD on 12/13/2021 at 08:39 Normal [facility] COVID Quick Testingon 2021 Result Negative Quofore Other BASIC METABOLIC PANELon - BUN/CREATININE RATIO NOT APPLICABLE Normal 6-22 [facility] Comment on above: Performed By: #### 5 328, 96024, 82516 #### [facility] [address], [address] [place] [address] Stave Cutting Supervisor: Heraclio Miller MD Calcium [Mass/Vol] 9.7 mg/dL Normal 8.6-10.4 [facility] Comment on above: Performed By: #### 5 616, , 15776 #### [facility] [address], [address] [place] [address] [employer] Supervisor: Heraclio Miller MD Chloride [Moles/Vol] 103 mmol/L Normal 98-110 [facility] Comment on above: Performed By: #### 5 616, , #### [facility] [address] [address] [employer] Supervisor: Heraclio Miller MD CO2 [Moles/Vol] 30 mmol/L Normal 20-32 [facility] Comment on above: Performed By: #### 5 616, , #### [facility] [address] [address] [employer] Supervisor: Heraclio Miller MD Creatinine [Mass/Vol] 0.77 mg/dL Normal 0.50-1.03 [facility] Comment on above: Performed By: #### 5 616, , 88930 #### [facility] [address] [address] [employer] Supervisor: Heraclio Miller MD GFR/1.73 sq M.predicted among non-blacks MDRD (S/P/Bld) [Vol rate/Area] 94 mL/min/{1.73_m2} Normal > OR = 60 [facility] Comment on above: Result Comment: The eGFR is based on the CKD-EPI 2020 equation. To calculate the new eGFR from a previous Creatinine or Cystatin C result, go to https://www.kidney.org/professionals/ kdoqi/gfr%5Fcalculator Performed By: #### 5 616, 21639, 20736 #### [facility] [address] [place] [address] [employer] Supervisor: Heraclio Miller MD Glucose [Mass/Vol] 91 mg/dL Normal 65-99 [facility] Comment on above: Result Comment: Fasting reference interval Performed By: #### 5 616, , #### [facility] [address], [address] [place] [address] [employer] Supervisor: Heraclio Miller MD Potassium [Moles/Vol] 3.4 mmol/L Low 3.5-5.3 [facility] Comment on above: Performed By: #### 5 616, , #### [facility] of [address], [address] [place] [address] [employer] Supervisor: Heraclio Miller MD Sodium [Moles/Vol] 140 mmol/L Normal 135-146 [facility] Comment on above: Performed By: #### 5 616, , #### [facility] [address], [address] [place] [address] [employer] Supervisor: Heraclio Miller MD Urea nitrogen [Mass/Vol] 11 mg/dL Normal 7-25 [facility] Comment on above: Performed By: #### 5 616, , #### [facility] [address] [place] [address] [employer] Supervisor: Heraclio Miller MD IRON, TIBC AND FERRITIN [facility] 09-21-2021 % SATURATION 10 % (calc) Low 16-45 [facility] Comment on above: Order Comment: FASTI NG:YES FASTING: YES Performed By: #### 5 616, , #### [facility] of [address], [address] [place] [address] [employer] Supervisor: Heraclio Miller MD Ferritin [Mass/Vol] 11 ng/mL Low 16-232 [facility] Comment on above: Order Comment: FASTI NG:YES FASTING: YES Performed By: #### 5 616, , 90671 #### [facility] of [address], [address] [place] [address] [employer] Supervisor: Heraclio Miller MD IRON BINDING CAPACITY 542 mcg/dL (calc) High 250-450 [facility] Comment on above: Order Comment: FASTI NG:YES FASTING: YES Performed By: #### 5 616, 93554, 79386 #### [facility] [address], [address] [place] [address] [employer] Supervisor: Heraclio Miller MD IRON, TOTAL 54 mcg/dL Normal 45-160 [facility] Comment on above: Order Comment: FASTI NG:YES FASTING: YES Performed By: #### 5 616, 04238, 23413 #### [facility] [address], [address] [place] [address] [employer] Supervisor: Heraclio Miller MD TSH W/REFLEX TO FT4on 2021 TSH W/REFLEX TO FT4 3.86 mIU/L Normal [facility] Comment on above: Result Comment: Refe rence Range > or = 20 Years 0.40-4.50 Ranges First trimester 0.26-2.66 Second trimester 0.55-2.73 Third trimester 0.43-2.91 Performed By: #### 5 616, 98026, 47830 #### [facility] [address], [address] [place] [address] [employer] Supervisor: Heraclio Miller MD Consent Formson 09-09-2021 Consent Forms [id number] TGTIFF [facility] Coding Summaryon 09-03-2021 Coding Summary HTMLBase 64 IdlrlgdgRHh4hWx+PGhlYWQ +JP1VYJNjL50ijOFbcI3DU0 yXEP5GDBBBYFBIZY8DKM5yz EH4NYlhZ3JpvdHc UxwcuXWaHW17KFz6UPD9zSj dQBhxlH9awTJkW7u5BpTiDP 01oT39OParYPGpUxP8JrBvr jsgbWFy S0unPsMaqYYoQzi+PHRhYmx lIHdpZHRoPScxMDAlJyBzdH vpGS7lGt7bSNMlMKXqmHcsg HNlOiBj m5haVOLiTGaaVT2smBmiX2B xsGC7EXJvl5x6Ug99uOD+PH MpHTY1nNpcNEsun889WxQhh 6bfLNS6 lQAwKIouZFT6T02mj9G3KSV yUETzHPY5xXY6gX8rxVrbts jpV4WngPRiIqR8ZHT4eKWnr Y7xxZrh xwskvO6sTjb+Q83NDV3JJUM BFL1XCaq9N9XwNajpdVW+PC 54NUUkIY04jMCoeKVxr7gsy Kf9QjSe BWBiYQV2pPwlXBvmk6MxZSB jZ25tbCWyg3C5AAPlyOgzxU PgXpRygEE2qI9hUNmswpgbn 2hvdzsn Vthrf1nzfl11jA80C60vSKi mCSJxJDI6XNKfUZMbhXfnaa 9orY3uWk4+EAvmd3vib0eqj Qt1TtPi FMXkviRmxRjrJDE0k6RnQs6 6Y9IyrErzg7HqLcd7tb10eM Ibo6E4wBU6RHmnPQApfF5sR WxlZnQ6 HUYzLyEbvX25oIJqTIqbTz5 xcPjcxTotCS7pQYErnhmiSA EmeL0jDELxbIQehXjpYF1fQ TBpbjtm q847XzVpDRY1AFUhwAZrJ7B ifN3rCjOhHIMlXKNpC6IbxJ HdKRchU899UBgvYfC8UXHjy rWnQ1Ma CHRhyOyfRyV6e5G2Lg1St8Q vwiysUOJ1GPicGQD5LoD1Xt VmVoR1M7OjMpf8CLKpjUrqH U6zG4Td GCRloatnissbqIH0KCZwOHC puM70uBRtMJvjLc8tq1K7s8 66GXXgJQLocW07Fx6nuWisL TBwdCBU aD9akyhhm3epzaowTxUaAAM lMOm6EAi0HNPokWmcOrKlIV K6OdY5UGW5uBAyxM2btOtgo lgbtI1l Oyc+H23ksI2xNED9YNU8acr zHWHhiqQhLD44PM00J5YnVm wvdGFibGU+PGRpdiBzdHlsZ A6hQkKh o5yrs2ElYSyyJ6UnYKLqNYl xQfd5VLOxUSF5tEB2xO0fFB FxMPcww8Z7yUB2C7BepaOcn y1le4cc TEXnKKwvH29ggLHtp2T4KEL xtCK3SMNvkSigFfDqmL74Sb c+RVSrfHdov1AlOhzuk8syu 9rycIl7 ZvObYSMmuqLvaMguYAT9z4X yFc38B28qFFznTOKmYGUhBQ ZwBDHzfUftod4fgH2pOe7+P GNvbCB3 cFM2eC9lIBWjJiR4VFthQ46 8XrUapMKqCykyb0sbt6pbaG g9CmYgOQRvdlSpiOzaXOP7i 8TjCu71 W81cVUkzGBAfSQQlKJNbXMM tsPnsbl8sqY9wTx0+PC9jb2 naff01bT65wEW+WOWcZLH2l WxlPSdw FCVduU1bPYvrGmR2LIKdUhK hoI88oUCyYFymHx2guJswaP mfHQ5gZKYyimbll026AvGae 2xkIDEw rZIsLWhzLIN7E54im5E4AZH qWEPzPET4fLO1jH1oyYrhfm ogbGVmdDsgdmVydGljYWwtY YlgV764 IHRvcDsnPlBhdGllbnQgTmF wEFv1D4CeYyo9ZMQboJesFH 6jpUXcFPkwOu9epQsriHceD D4eWYUa ygvxr879XxZlr5nbAOZstLV cWOwuIWR7G54ty2K9TBPmPU AlNHG8sQY4iK7dnUzwudeji GVmdDsg snJuhKxgUOcyDAukP043TFF ksQjcXuDbyjEpQIDawZL6IJ 35TZ11iGGmy3K9gLG3G3PvJ GRpbmct ukanuOU5BRLdTMUvgT75He1 hjSouUi9uHEXdRVM6BFFcuM WaE8AqvS8xImLeIPCrCDCfS 3RleHQt PItxC750TKudJyY5QPVzqvD oK6FyQLScvNseUcX4l1N6Xx 8LG2I9FB55TO08jETiv2M6u DF3N4Vj RZMgpztulcezuOO8KGKyVXV vtV11Yv8qdKfuMz3jPHBxUD G8LOSkmFTbS8CyvL9aLgWhP DAwMDAw A8LogAXgBYdjI461WOapYrD 3UXXdpeBpM4KsEBOzcVolDa C6v9B4Nb3UNSu1CB20ET68v QDkd0T7 oBZ9P7GgVRMygulxnxhjdZO 7GRLeFSDlqM73Eh5amEtmBh 8yTFJzRVN0UJVilQKyQ0Elz Z4rGbHx OGFpFOCiV3EolTGaFGbrT83 2PBtcHmH1SIVykfIzT2XyMO IahJyoTcN5y6G4Qz1MENSkO B89XOT2 uTP9IR02VZ71M0RtJfwegGR ibGU+PHRhYmxlIHdpZHRoPS rhPCAaXiDsmGjiTC4cEg4dM GVyLWNv wIciuGJmRrXrk4bfNXEaTOo cBD4dnUkwA2MriSN2YBWcz5 g9Ct10S56uR9UruHW+PGNvb VC9rWF5 aF0vJdFqEkR7XUshZ062ZzP chJXeLzmwv7xqg9vguFh8Nm G3SZXtsxYqkAbpLGI8i8UoQ t90G36i IHdpZHRoPSIxNSUiIHZhbGl vgo4mqI5mWx4+DXXplAQ4sL I9xJ3cZyBsShM4ABzsM665K nRvcCIv Jlqtf3lcb3fheEu7PyXbMUR dxhNgfDyiAEY0j5IoCm12S6 QmiBxvs9UeXlc7bc77hTAte 4Z9oHG2 L9HwIIJjndxgpFGbrUwyFT8 tVFFfwaveZVHsvN7rRMCrS6 b4ZlOtLkW2JYktV9DjytF7A DEwcHQg HXhqGRV7F12ag6A3BDUiDKP lBKK7jXN6nR8fqQjnuojgmP VmdDsgdmVydGljYWwtYWxpZ 246IHRv lTzdNHBloX7sETJjqZGgoEy pEU6eXWRgxasbKzdUXC2FHu wgRUxJWkFCRVRIIEFOTjwvd GQ+PHRk DYM0aEgfAIngPOIjpB1yJCS iQ1i6OqUeOlY8QAeqN5CzXV KgevahEv28fV6qIkImVkJ0W WjzL6Pj wyV3ONPheRCvJIvsQJE0N80 ld0Y9UQZsZDWaTAS4aWL5kY 1hbGlnbjogbGVmdDsgdmVyd GljYWwt RApdU271RVTioGwhEdD2EmA lSjT4XpE9C0FjExu3XHHbjU dqHX3olKWlQIkbNa0rkHrrk PriUA5q IBNwpneyRSFisK7mDSVgtOV clCqnON9jBVZgdrelx922Dj GbRDI3HMZvjADrR3ElqG0bE iAjMDAw XXIoQ1AgmFRtWBhpX415IEj fNnF1PUQibfUkM5WiRWFhlD cgClF7i1H1Gt02SKNZHSVua zwvdGQ+ KDXcNEU6fRjuUEntAIFraN5 kAMCyY7w1IlZwIbX3LItwF9 RjYRIqgmbsLc46qG4nEgNoO mX3CIgw M7DmhsO2TAIfyWXiDFbaECD 1D29di7I3ZOWyEMGkSSJ3wP X7yS5wuNlfyoucmNYxmSivu mVydGlj ZSkwQHufQ263IPUpuQgoCsC FTUFMRTwvdGQ+SFJbVDS0nZ aiJDzpPRBkuD0xZDVjR2l7I iAwLjA1 BDjlL9LmQTSbdgmhXx12uV3 hLwHcBvN0VUanJ9PsloK7BR OndYRaGSesSPX8J90jf3I9F CMwMDAw YOS0vYP7wC5giQwkuiodvWX mdDsgdmVydGljYWwtYWxpZ2 46IHRvcDsnPkRheSBTdXJnZ SZ0OX66 EB15B7VhOnnmtFDufIV+PHR hYmxlIHdpZHRoPScxMDAlJy MavEyhLH4aPw7pEVMdOSQkz GxhcHNl TtGmq1tkDNOdATimFS6tyNw yW4NqoXO9YLXsx9n5Ly02W3 0fF2XvlQN+AWVrxJL7zBZ6c B8kEtKl CuH0AXtgV269GuPagRIfHmx zm7jzc3nfxCp4YrJkHQNttf EipGvnQVT2n6OrTr69M28xO HdpZHRo FHNqLIJcIIFkbPjqwf1tnH4 wIi8+IGHluOA2kTD9aU6nAk QnBsB2DBitG222TjUbpGFwC gyqV96z D7TjlBS+WSLyRfq3CUUluDl fCJ0wjJJbPHddBe2yEQO9Ak WyAcPgPKbkO9ZmYCAvcrblp mlnaHQ6 INIgIFZfsW18Tt8ydHpyTd8 dUUNfVBR4GIBtpPMiY3IhxN 9mBdDpKOIrONKcP8QlbOQmK GgcG998 HKbaBcF7VDHrsjZgJ2YiOMK hnAgoTyC4b4N8Mq9SeIwclO LrEB8sNqYoPTd8F2QfVvc1E CBzdHls BQ4xtKCcQUfwQo8ehUtlmJp yXN2jMMApneipq054JmKbp7 bnVXEhwZAbEDmhRAE7D21gs 0C6MWTy EQUaKAW0pBO6lX8hdMgidok gbGVmdDsgdmVydGljYWwtYW rkB271OAIobWbvVaTYHij1J 6BeVpc8 PZUviRslVY4tgTVsFCeoLv2 ybHjfwJkgQY1uPRSeppzyj4 47AwSgm0orXQJqyYUxETwjR ID2Z32c l9L0UPJqUDShPHS9zQF9bE9 hbGlnbjogbGVmdDsgdmVydG itAZkoZXdrD328RIApqPelH r3RGqz7 Z0UnXyv2YYQavLawUB6joCQ eIQadHk5mjUadvMjnPD4uBR Afwfgwo558PbSfz8oqDBLwz HQgVGlt MSM8U84ol6X3XNMuKYZeTLS 7oCL4cZ3lhAtifhfllQZxjX nynaNlgXzqMVjrERiiD871J HRvcDsn PlBheWVyOjwvdGQ+ZK54ze1 0Q4BsMkfwEnu2XGXuHRT1vQ M8xW9mUVNmTTxcv5U7dDZ2P 2JvcmRl ci1 (more content not included)... [facility] Coding Queryon 08-27-2021 Coding Query Documentation [...] Signed on: 08/30/2021 13:41 EDT] Hua Oglesby [Verified on: 08/30/2021 13:41 EDT] RenyHua rosas DO [Transcribed on: 08/27/2021 07:54 EDT] [facility] Consent Formson 08-27-2021 Consent Forms [id number] [facility] Telemetry Stripson Telemetry Strips [id number]#1.00O [facility] Anesthesia Noteon 08-26-2021 Anesthesia Note Patient: YASMIN JONES Age: 50 years Sex: FEMALE : 1970 Associated Diagnoses: None Author: Christopher Cadet MD Postoperative Information Anesthetic utilized: General. Assessment Anesthetic outcome No anesthetic complications noted. Plan Transfer/ Discharge: Patient can be discharged from PACU when criteria met. Condition good. [Electronically Signed on: 08/26/2021 14:58 EDT] Christopher Cadet MD [Verified on: 08/26/2021 14:58 EDT] Christopher Cadet MD [facility] Anesthesia Note Patient: YASMIN JONES MIGUEL Age: 50 years Sex: FEMALE [...] = 1 tab(s), PO, Daily Potassium Chloride (Hlg-Nbji-Esy 10) 10 mEq oral tablet, extended release 10 mEq = 1 tab(s), PO, Daily traZODone 50 mg oral tablet 50 mg = 1 tab(s), PO, Once a day (at bedtime) Problem list (past medical history): All Problems Cardiac dysrhythmia / SNOMED CT 8516314543 / Confirmed HTN (hypertension) / SNOMED CT 7442427134 / Confirmed Histories Family History: No family history items have been selected or recorded. Procedure history: Arthroscopy of knee ([id number]) on 01/21/2021 at 50 Years. Comments: 01/21/2021 8:41 Carolina Pickering RN right Abdominal hysterectomy ([id number]). Arthroscopy of knee ([id number]). Lipoma ([id number]). Comments: 01/04/2021 11:19 Mliana Melton RN excision History of tonsillectomy (8784410331). ACL - Anterior cruciate ligament rupture (916491940). Comments: 08/12/2021 13:15 Carolina Heller RN repair [...] Oriented. Review / Management Laboratory Results Plan Citizen Of [place] Society of Anesthesiologists#(ASA) physical status classification: Class II. Anesthetic Preoperative Plan Anesthesia: General. . Anesthetic plan, risks, benefits, and alternatives discussed with the patient and/or family. Patient verbalized understanding. Informed consent was given. Anesthetic technique: General anesthesia, Patient presented with diastolic HTN; this was also noted on her PST chart. Had a lengthy discussion with her regarding this. 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 Patient has reported no changes and has noted her diastolics have been above 100 for months . We discussed treating her with some labetolol here with the hope of moving forward today with her surgery. We also discussed putting a better exterminator termite plan in place regarding her hypertension. Her and her both seemed to express understanding. . [Electronically Signed on: 08/26/2021 13:29 EDT] Christopher Cadet MD [Verified on: 08/26/2021 13:29 EDT] ChazChristopher nunez [facility] Coding Summaryon 08-26-2021 Coding Summary HTMLBase 64 IlbszadjTUv3vCo+PGhlYWQ +NP6UYMHaI54ldYEzmE4CY2 rQKL4OWWTUVXDUKQ5YHX7bh CS5GCutC0ImsmQl NbrdzQNhNX71ORp7ARL0pRy fFCumbQ4xsHGfB4j3BaIpWP 40lO23JWfkQGJuXsC8InRew jsgbWFy G7eqXzFokAKxLmk+PHRhYmx lIHdpZHRoPScxMDAlJyBzdH wwLB5lWo8wFKRpVEWieIskz HNlOiBj l7nnKKQyLWovZG1fpRsuH0Q viHS3YNXer8k7Ui84vEW+PH EnDSM4bKmmJTgkg825HrYnp 4zdDXX2 hKFgCSilDNJ8K20ts5D1IEZ eNUQcYXW0oCW3pC5djLgivm cwX0VxfNNzYbJ7PLA6yASbe G7onKyq dqymxH8qRpc+F84MVR2IEXW YUH3LXkq1Z2UcNwuboMF+PC 65GCHvKY21pDKfoMVvg7eds Wo1MlZi ULSgSWX3tKqrLDenm6XiCIZ gG47cpFDty2D8IZFdiMjanZ EzGeAsvTM4mF4lVXiluodxe 2hvdzsn Znkut4sqoj85eI24W81uCXd jQUFzWAH1LZBiDLMdwTqbzw 4kvJ3xEz3+WLmpr1tbd7maw Kv0PdQo EGYrqmAazXvcGKB7r1HyOn7 4X0CrfQkuj1NcLap4ph10oS Ieb6X0vIP0NJajVJNyvD3dE WxlZnQ6 DQJfZcWueC97qWZxRGboCi9 wsZsleOazVR8iCGCnfndzCA TadZ6pWVTgtZSyrCfdBO5dB TBpbjtm k180YxUxNMJ6RWAcrERsL6A huG0tPpElETJsWOMtE0MswI HfZEzaP656AKplMbF6MJOqh hAfX3Xy JXZvdCqbAxI5y4H4Wu3Vf8L xfhxwQPT5SGsvVPU6XpN1Dt DxPrI5I9QzBta0ZBNbvXzuT M6xH9Wu JQYbiyaqbfvnyYE1DCFkIIR kzU27fEBjRTssEp5wf3O9t6 81VSZjNVIgrV36Br1odCtaB TBwdCBU bM1cemejk7rkjngwJsGqUND xLEt0FPn6VDXopBreGxQoZV M5UuG4CXV6oQDsiQ8uxZnrd whxlD1e Oyc+J59tlY8bYXD7IFR8bwc dPVFnjgWrFX36KO82O5TvPv wvdGFibGU+PGRpdiBzdHlsZ I8kSaBk s6bgc2ZkKGiiD0UlQAXnSQq pKvm6QSLhDTI4rAS3sM7hIH TsDMapu7E1oWT2K1HzstZzj n2lp8dw YTDiLIqrH09owFAqm8E2UVT ytWU4MQRswFprYzFueW10Xv c+GWIjlHljj3BzYbsez5qoe 8cifOh7 WuXvAVIffpHbnWmhDHQ2i3S sOd52J66xHTpoPLOwMVNjHA BdJJVxfHxcba3jyS1sTy7+P GNvbCB3 qTN1iW1sQTWmVxX9MNlnL46 6WkDsfHXnYddbd7zla8ukoR d4UdTuVFNixkKnyNxxIAD1q 8TmEp82 A37oYOggRWHbBUKnENOvBRW rkJnzla6rgS4lMe1+PC9jb2 ampe25tU45yNW+BIPnAUV5t WxlPSdw ZZGkfC6lTDvwVcI8PFLjNdN ewJ64iNVmOZsmDr2mcElypV ugFT7cQNLnbybka046VjUym 2xkIDEw xMAqWCuqBHK2C70pl2K5HMX bJGEtPDC2xJI1fO4xzBmbrx ogbGVmdDsgdmVydGljYWwtY YyiO866 IHRvcDsnPlBhdGllbnQgTmF wNGg6L0WnXpo8OYGdxDygKK 2vdKHyPHktMc7ocLwmnBcaV J6vLVJe laeln580VsGea4oiAMEjoIX gJQhkABF2O66ls1I1WJXrOH KeYMC3wGN5hY4vmHtcntmzv GVmdDsg qiDfyLlpHXkxWOmzF206BIW chXesWsApghSoYYYvdBI1IQ 39PF12sWFdx2K7aBY7U9PcS GRpbmct mxqlrMM0KDDeXKOhgX10Eq9 ihHjeMv3zNMSiKQI9HQWsgG OwI1PtxF7rMjBgUYIuYPTsH 3RleHQt ZNunH489LKtfUfS5LIZxctC zM4UgFKYwrZsmDwB1m2Z6Eo 2UX5Q4CI99AS30aMYoo9V9b FR1F0Yd HSDgrbcgqmorgLN5BCYuMFC jzE04Ha5mtSoxOm8dZEOsNM I6MNRnoFZaO4NqgF1cDlEpB DAwMDAw O6BzeRQvELdcC050ERwmLuI 7YOBudbQvR1MqPVJtuHvoXp L3m5J8Ee7RMIi3GT15RM60g DBrw4V9 iJQ9E4YxNNBekpbneektxNB 1SSJrVLPaaP63Et0zfKjsNv 4lRNRmMFZ6VLBrxHNjU3Ahn Z4pKtDb PXOnUARsP2MooZDoICrhC92 3RPgrBfG1MXSpkrUiP0VnZV VmrSsjLfM2h4M7Ew8FNGZwZ I11WGE3 eBK5DE86UA77W0BaTklxpPJ ibGU+PHRhYmxlIHdpZHRoPS xfSTGbJiKufTvaXC2bXo3pF GVyLWNv gUrurKUlHqXjn8omUNBsIYf qIX8ojWafV9HrfBU0CNXbf6 l3Fg12J19bD6DmbJR+PGNvb TX0kSG8 xY9yEtXhQaF1PNasP669VfU ouXCoFaquh7qwv0oeyLs4Ek J3CVRkubDnuWhgZDJ3d3SeN i16L46u IHdpZHRoPSIxNSUiIHZhbGl woh2xqO0pZq8+OLUfyKP9dW C8fO4qXaUmPwL0HTxmO493Q nRvcCIv Ychtm0pbf8xjaJa0GuYyHLZ uzaGjsMvqOMJ5x9NmLh10D1 LhnLnfv4JuWgw3ji59pFUdu 5H2zAZ4 Y0CtXBJlthvwdTNjzUthZV8 oEAEehrnyPVOyrJ5zTOWbM0 t1OhXgAdB6ZJevT4PxwpI6W DEwcHQg CEqvTNC8B77jo9Y4YZTuEKK xSRL2pNY8dS8wqIddrapziF VmdDsgdmVydGljYWwtYWxpZ 246IHRv xGhyJSAbeL6zYZXnbPCxvSg fBA6vOIJstitwQnaZHJ3CPk wgRUxJWkFCRVRIIEFOTjwvd GQ+PHRk MAW3nEfnYGwrQSCrmE1hBYS iU6z9BeBaFzN5UEzvK7LaAY CrtpeyXt84oB3yRlApKbW2N ClvE2Ki peW2JFGhpLSdLIldPIN1L76 cr5X1KGFjGGWjHJD1qYY2nQ 1hbGlnbjogbGVmdDsgdmVyd GljYWwt QTltY265BQXhgVbdRtD8XwF oUoG6WzB5E9ZdMhu3KLFscN isNA9vbIVgRVzrYn3bzLyga GwhJU0t SSYdvzmmLCXmhC9mYGPjiNR tqBssAM9uBJAshyodq520Tp RuBLD1ZHDiaRNcQ4AucE6mI iAjMDAw HOBnZ7KgtVQfNQsdY833PHz tVeY1BQEalhExF7StYNJjcO idKdT3l6C5Jf22YPRDCJBcz zwvdGQ+ EKIpDSH6uJlyABgaANCyvL3 hRVCwC4c7RtXzPxP1KXavR9 ArYFDovefnLt03hI6gNjUbI uI6FDvz Q4UwcgH3NRUppBEsWGxcFLR 9R90lv7B8CQXzURRkUDP7lI G0uD8rkXjunttmuDUfpTpjm mVydGlj ECluTSqqG718XFUkzWshLzS FTUFMRTwvdGQ+EWWlWRF3uZ xoFUdfOKIllE5fARWqS4u8E iAwLjA1 QBveS1JiEMVauqsqHe13rC3 bDkRjBzH9VKcoF5JxbrR9SP EakGFiUEzqMOE5U33me2Q2W CMwMDAw HVU5cHZ2vN2vdRgenyasrXK mdDsgdmVydGljYWwtYWxpZ2 00KXSrvBcrHv2CRJ68UN05I 3RyPjwv dGFibGU+PHRhYmxlIHdpZHR sSNkoMNIdZsVjqAnhUF8kMa 9yZGVyLWNvbGxhcHNlOiBjb 2xsYXBz RVqdWJ3ugMhsW6QztCB5UYX zq4e3Ph22U38zZ7WudZK+PG FctXE8dZE9lU9uCrRtCaJ2L ByeX552 PqIdsUMgReaiy8tqw6intYx 5VkEoFAPxdzWhrIxhQJF1o1 CtVx65S89dRYlfABYnZTVgM CUiIHZh aAdllo2owM4mBw5+PGNvbCB 5iGI5eD6eAkNsCsU7TGwhL8 20McYktKVoOojhX80jF5Edj XA+PHRy Hnz6ZOOkrGriZA4klIIcUNw cSp6bOEE7RcQtVmMxRPtyB7 EwJHNtaajnrknhyYM5LFXeO DUwaW47 Kr0jvKciDi3vOFPgCHK0LTA scVCmR3MgnL5zYyAiUMGoWC VaL1EysOZbMHmiN218FPtjD oA2DMSb sqVqM4EvHTGtqVexMoX7d8C 4Jc4KbGrobFNjXN5mPyWcOK d3F4YzPqb2HBUtdOzsET0jr GFkZGlu Fi2koNxkqXouDV6tFDLqvfi rs539VtXon2yzYKLisARpEZ cmNVL3W69wp6O4XJBlQKMuF JL2xVA5 zX8dpRpjfjugqCPrwHistrS ucGotCJigBGegQ157AHRscB dbJdOARuj6F7AkFrq5PWBtj TuvIS9k fULlTXstAj7iiLokoXzmUE9 yFXJhahuom783RoHtp0yhOO LvlTMyCClpRNM7S46sr0M8H CMwMDAw KAM3wXY1mC5deVjlterbiJH mdDsgdmVydGljYWwtYWxpZ2 27IKWbaScrKe4EYoa1H9YyS ko1DNKi eUdiMD3pvJKeIKqrKj3ocNz nbKmpRZ2zFDWlixthp276Et Fqo7xiEGErcUDmFBfeAAO3M 73ya1G1 JJUfQGIcZNQ3oSX2fW5nkJx nbjogbGVmdDsgdmVydGljYW ptXWqfR037UFPwoChjZlToz WVyOjwv dGQ+TG11nn34C8DqDpzlLxb 1HKSqWPB9eEY7gG8tPSKuUA jdl1L4kFS7Q5JudiMqzl8uz 2xsYXBz ZTo (more content not included)... Normal [facility] Inpatient Patient Summaryon 08-26-2021 Inpatient Patient Summary [place] [id number] Patient Discharge Instructions Name: NICCHENYASMIN : 1970 Patient Address: [address] [place] [address] Primary Care Provider: Name: RANDY CALLE After you are discharged if you find you have any questions, please, call [phone] ext [phone] to speak to a nurse. Discharge Diagnosis: Internal derangement of left knee Prescription Information: If you have been given a prescription for narcotics, seek immediate medical attention if you have any difficulty breathing or any sudden status changes such as confusion and sleepiness. If you or anyone you know is experiencing suicidal thoughts, mental health, alcohol and/or drug addiction problems; contact the [facility] 22/09 Crisis Hotline -Text 4HYVO [place] [phone]. If you received any narcotics, sedation, or [...] business decisions or sign any legal documents [facility] would like to thank you for allowing us to assist you with your healthcare needs. The following includes patient education materials and information regarding your injury/illness. YASMIN JONES has been given the following list of follow-up instructions, prescriptions, and patient education materials: Follow-up Instructions Medications During the course of your visit, your medication list was updated with the most current information. The details of those changes are reflected below: Medications to Continue That Have Not Changed Other Medications acetaminophen-hydrocodo ne (!-De Berry 5 mg-325 mg oral tablet) 1 tab(s) Oral Every 6 hours as needed as needed for pain. carvedilol (carvedilol 12.5 mg oral tablet) 1 tab(s) Oral 2 times a day. cyclobenzaprine (cyclobenzaprine 10 mg oral tablet) 1 tab(s) Oral At bedtime as needed for spasm. hydroCHLOROthiazide (hydroCHLOROthiazide 25 mg oral tablet) 1 tab(s) Oral every day. potassium chloride (Potassium Chloride (Xox-Ichf-Sct 10) 10 mEq oral tablet, extended release) [...] list that you can keep with you. acetaminophen-hydrocodo ne (!-De Berry 5 mg-325 mg oral tablet) 1 tab(s) [...] Oral every day. potassium chloride (Potassium Chloride (Vcx-Whtz-Fiy 10) 10 mEq oral tablet, extended release) [...] flow is (more content not included)... Normal [facility] MAGR Intraoperative Recordon 08-26-2021 MAGR Intraoperative Record MAGR Intra-Op Record Summary Primary Physician: Hua Oglesby DO Finalized Date/Time: 08/26/21 15:08:30 Pt. Name: YAMSIN JONES MIGUEL [place]/Sex: 1970 FEMALE Med Rec #: [id number] Physician: Hua Oglesby DO Financial #: [id number] Pt. Type: D Room/Bed: / Admit/Disch: 08/26/21 [...] Role Performed Surgeon - Primary Anesthesiologist of Electrical Supervisor Record Time In 08/26/21 14:02:00 08/26/21 14:02:00 08/26/21 14:02:00 Time Out 08/26/21 14:56:00 08/26/21 14:56:00 08/26/21 14:56:00 Procedure Arthroscopy Knee(Left) Arthroscopy Knee(Left) Arthroscopy Knee(Left) Last Modified By: Jeannine Eid RN, Erica RN Baumer, Erica RN 08/26/21 14:54:01 08/26/21 14:54:01 08/26/21 14:54:01 Entry 4 Entry 5 Entry 6 Case Attendee Dorothy Archer RN DECK OFFICER, Laxmi Navarrete DECK OFFICER, Shanique CSFA Role Performed Electrical Supervisor Benefits Coordinator Scrub Personnel Time In 08/26/21 14:02:00 08/26/21 [...] By Jeannine Eid (more content not included)... [facility] MAGR PACU Recordon MAGR PACU Record MAGR PACU Record Summary Primary Physician: Hua Oglesby DO Finalized Date/Time: 08/26/21 15:37:09 Pt. Name: YASMIN JONES/Sex: 1970 FEMALE Med Rec #: [id number] Physician: Hua Oglesby DO Financial #: [id number] Pt. Type: D Room/Bed: / Admit/Disch: 08/26/21 11:01:00 - Institution: PACU Case Times MAGR Entry 1 In PACU I 08/26/21 14:56:00 Discharge from PACU 08/26/21 15:30:00 I Last Modified By: Elvira Navarro RN 08/26/21 15:37:04 Finalized By: Elvira Navarro RN Document Signatures Signed By: Elvira Navarro RN 08/26/21 15:37 [facility] MAGR Postoperative Recordon 08-26-2021 MAGR Postoperative Record MAGR Phase II Record Summary Primary Physician: Hua Oglesby DO Finalized Date/Time: 08/26/21 16:25:07 Pt. Name: YASMIN JONES/Sex: 1970 FEMALE Med Rec #: [id number] Physician: Hua Oglesby DO Financial #: [id number] Pt. Type: D Room/Bed: / Admit/Disch: 08/26/21 [...] Signed By: Elvira Navarro RN 08/26/21 [facility] MAGR Preoperative Record MAGR Pre-Op Record Summary Primary Physician: Hua Oglesby DO Finalized Date/Time: 08/26/21 15:18:23 Pt. Name: YASMIN JONES MIGUEL /Sex: 1970 FEMALE Med Rec #: [id number] Physician: Hua Oglesby DO Financial #: [id number] Pt. Type: D Room/Bed: / Admit/Disch: 08/26/21 [...] instructions reviewed with pt and incl anesth restrictions-verbalized understanding. Finalized By: Elvira Navarro RN Document Signatures Signed By: Elvira Navarro RN 08/26/21 15:18 [facility] Operative Report - Surgeon/P aster [...] on: 08/30/2021 13:39 EDT] Hua Oglesby DO [facility] Patient Handouton 08-26-2021 Patient Handout POST [...] be done to rule of a DVT. [facility] Progress Note - Nurseon 08-01 Progress Note - Nurse Pre-op call done, instructed to arrive @ 1100 on 08-26-21, NPO after midnight, and need for ride to and from hospital-verbalized understanding. [Electronically Signed on: 08/23/2021 13:36 EDT] Carolina Painter RN [Verified on: 08/23/2021 13:36 EDT] Carolina Painter RN [facility] 2018 Novel Coronavirus (CoVI D-19), KYLE LCon 08-22-2021 SARS-CoV-2 (COVID-19) RNA KYLE+probe Ql (Unsp spec) Not detected Invalid Interpretation Code Not Detected [facility] Comment on above: Order Comment: [id number] [facility]# [phone] Result Comment: This nucleic acid amplification test was developed and its performance characteristics determined by [employer]. Nucleic acid amplification tests include RT- PCR [...] detected) result in this assay. Performed At: [facility] [id number] José Manuel Chery PhD Ph:[phone] Performed By: #### 6 [id number] ####[facility])[address] [place] [address] Coding Summaryon 08-15-2021 Coding Summary HTMLBase 64 DqapgcmxQJn2qBt+PGhlYWQ +WU0KBIJwB94nsORjeD5LN0 gJJV0RYKBLJVSCFN8UIW9gf IQ7PYzhM5IphkEw QprevZIeSG82PSz2LIF5rEx uEQrezK1usFNiL4z9AnAlNK 63nQ03XSbuWWWiNmE3OeTef jsgbWFy W8diMuZszQCtHkl+PHRhYmx lIHdpZHRoPScxMDAlJyBzdH opEI7rOk6eEGFjJDJijKvqi HNlOiBj q3dvGRAvBMkhEP6byPlkD8D peGZ9YILph3u5Yb65xYK+PH YaQLB9zFmyPZlzr564QqVqn 6wpQPV7 sYAnNQolSCK3A14mp2N4NHH mXBQqVGG6cIK6lB9mlIgfpk zdX9NmcUEzOkZ5VQR7vSHhe T9piJsd yedkuB0nEiz+U76AMQ4URGF HWU5IGbp4B1TyWsnrmPO+PC 38EGHeDF52nAIjaQWnp6mpo Lg4GtNp XIQqTTJ9wKyhFOrlw5UsOQD iY96jeDFtz0F0ZPLxhDxqqP DpKdLhpTZ4oN1bJNdviwngq 2hvdzsn Emeer1peti74lS54Q10cNWm eALPrLGE3QYQaCDUdfArjww 4yzG6zDc0+NMdsp2bow0xlc Sh0RjNg EGCrazBkjKewVRI1f5SaBz2 9K2IfnQhyq1FuPat6db45nG Xcs7O3yYZ8BFicIHVmcC7uW WxlZnQ6 LANnOnJnbG41jVNvELezDi2 kyCbbeHpyRJ3dUKYwcgljYQ TjyZ0oCRNhdCNhlHkyWG5oB TBpbjtm a376NhEnNRI3FHDlmJAwI0B grS0sGkUkPCLoHTAbL7ZfeS BcYYrzG859GCbaXbJ9JGXel xBrZ4Vk HKWalAzsOwY1d0P2Bu5Pi2S wnmedSAO4NSvgZMP3CcQ9Zl BsZlU6N4DjLlp2KXDdnAlkT X6cB0Qu KYNepuzwcrxwsBX8CQVuFQF ocA83cJIwNBvyKc1cq9K3z5 68ZYYqNJUtuV03Ot2odWloB TBwdCBU wI0skrtoc6hpmrkpKzPxYLA bANw3PWg4IJFxcKzpDoOcMD V1UkQ0ACM4qUEltW4sfMavg wdncY6y Oyc+E77mrB6vMNM8UAM0hgp rNJDmjxUxLP55PM61C1NtNt wvdGFibGU+PGRpdiBzdHlsZ M9uNkPe r5nhc7GaZCpdB1RnPCIxZSv kKwh3UCWjUGK2wFO3jK0mYG BrFEiae5X1uSF8G5XssjTmu k0vo9py OTXwSLhcL03vtMLfy9O1LQS csVT6NKEqdMbvOkAorZ64Mz c+XMDbdWzjf2UhSgdni0xhz 7ircMr4 AcKqPRVcahYdrCfoZIT8x1S pRo54V05jAVwxONQtHJZeST ZvNGEmxVlpgm1yeJ5yXa7+P GNvbCB3 yJC3wJ2yPUMdLiF6IWopL32 4VoHmtBClXjghj0wgg9aavZ j6WyGnOOHmpfZltXluFMW0h 9IhUy20 S30uIWstQTPjEFQgGTOdGQI zpZpanz3csD0dQa0+PC9jb2 idxa23eU37rUL+ZMSjCDZ4u WxlPSdw FAVnkE3cRVucKhD5HDEtAvX cyM33eGMvZOrlFu0qlWpffS dxLL3sPUGjumyuy047NgDdy 2xkIDEw kSTbIRdnXKF8U47sa3N9IYY hGDFoXMN9gNV5dN2heIllea ogbGVmdDsgdmVydGljYWwtY HuxK884 IHRvcDsnPlBhdGllbnQgTmF gGHt4C6ClQel6YHPhfDuqWW 9ehUEfTRftXc8yxFohcUidU C0bHAIz agogd472RcCiw2miDFYxeBV bYEpgIAF1G42qx6Y8QCQqCN JhZSU4bKA4bD3moOoldgrzu GVmdDsg qqZmzIvbLNvtUZxmD254MTU loXglBaTzxhFyRQKegDF9YY 70RU67oYKxg6L2jJU6T0JvK GRpbmct vxtcxYS5ODQyIDTrzZ49Zi5 jlClaZg0pFPUsQOG2NRUwhY JqZ1JfdF9fSeJtWGZiDVEiL 3RleHQt HMiiK063NUqnHhS7TRVgyaJ yW8TlKUNrcEpyEeX8b4Q7Lc 8QJ3S5SK46EC85aGMdd6W8p GX2Q9Xa DGDmjcfrdeoqvNC7KLTfVYP gxK15Bi8syCvjJo9lTKQqBG P2RJYttVAqR1RxuD9pYkLnQ DAwMDAw M2TyqXKwSYtvH611DXiwSoP 7ZULdjvMaH0NtKYLmyGvtLj X4f9L8Nu7YBQy0BG49KQ51b LRwj9N7 zEZ1X5QoBYDpbqiotqfniAW 5ILBrQASjeP57Hu2unOngUy 0jZIIuHGB3DUCtfWGnU9Lza N0tBiHt XFNsMMLoU3UfmAFxRDpwL93 4QRmkZoZ0THAxqdVuI7WzIB KauZokPlG0h0V0Re4JHXDgN K65ODE4 fDB9KR67WH26M5KlNqdgdSC ibGU+PHRhYmxlIHdpZHRoPS ulSYTkOlQgpSrrZH2wKa0lF GVyLWNv yDyhoULuIhKdd0faXSSxKOm yLF3fnFzhV5UdyWM8NIPzl5 d3Pb87E53aE7BkyFF+PGNvb BR4cTI6 bH3aSgGfYsF0QOnlS518FaV ufUQnEozcd5ric4ireIe8Uv Y0OTLdybAcbPcpCPB5i0MxP e72O35q IHdpZHRoPSIxNSUiIHZhbGl kbf5pwR6dZe0+VPExeLO9xJ U5rD2hHsOhLkN5SRuvB442U nRvcCIv Onwsw0edq3sjrKc4FtXpNZW dmbMlnFygLYO4l1CeOq59H4 AkiZpoi6EiPsb4rs48oMHzf 4N0hVD6 U0OrRLDlxeiviSMjqHkuDY2 fQLXafbqmPPBnzV7mPRCaS9 k8PlXwWpV8XLuyF8VdkuG9O DEwcHQg ZAmdYKQ7H95vx7R8WWWoZNO rHIF9eFI0oE6fgUkzymdwgG VmdDsgdmVydGljYWwtYWxpZ 246IHRv fZcrMQWurK7fMIXowVCsgTt tXH5jVVNzeawrJlsFYF7LHa wgRUxJWkFCRVRIIEFOTjwvd GQ+PHRk IGV0cXrvWHyyJJHaeD4nHTV gT3o9GpWeYlR6HBoeE9NwTH JcjudnXe34xO6bLtTfKpY0D HqrX1Bf joS2EEZcuYCzWDsuFDK4I89 wd5G5NCIjCDJmSVZ4xRK7qS 1hbGlnbjogbGVmdDsgdmVyd GljYWwt MAtfQ115XEFseLyzTkQ8QsV gJrZ2WtH1B6ApAts9UWMivY qbVI7oqOAiWKobVc9chIiev TizRN8k AMPkocmbVTXkvI6rIIFsxJN dtWjdZA2hWDAypshtu737Jv ZeIJR1YNNrrAJfH6TtdR0oL iAjMDAw RKNkO1TucDXdWYotB487URs jGkD7BONtayQhP7KwGUQulX khHgX5y4Z4Qg06HFIWKXSaf zwvdGQ+ FBQxBRP6wPnfARpiNNPaqG1 dKOBoD3m1XwTeVrP3NFdhM2 JfXMCmbpwhDq21pC0mHcHcA cJ1WIcy H6GbdjA4HPSpbNPfEXnoSNK 3Q66wd9F6SWOhTSBdQYX3kO E2kI8mzFpqfmroiWPvnRnia mVydGlj NIqqORjvV932TVKvnMpaJpB FTUFMRTwvdGQ+DXZeLFH0dY tbBBjqLYCuiD5rIESwH1k1Q iAwLjA1 OHfcF1OfMRUiofstAn27aP0 lQePyZoK9OChqB6UvfqG5BM ImcAHvXLiqLXU0A44wb4X2Z CMwMDAw VQU9aSN7uU6bfRusdcwxiLO mdDsgdmVydGljYWwtYWxpZ2 74KUQtiVuvSx7JTB19RZ36H 3RyPjwv dGFibGU+PHRhYmxlIHdpZHR eLMyiCYOwGgQozZsbIV4qSy 9yZGVyLWNvbGxhcHNlOiBjb 2xsYXBz RPwjKU7ghOycF8HjjQC7SDX bh1f4Lx30B26yH4KnmRZ+PG MphIP5uMS8rC8dMwIsSuL4F ZfsV987 EvBbqMEgTatdw6chp3eroIu 7GuLnYSVaqoZmcOtkLSJ0s1 ElWy29G21yVQrfGWLvRNMxF CUiIHZh nTevxx4vvW3rHv6+PGNvbCB 6tWG7vZ1bGoBbIlW1GKpyM3 97HvPbuQWeVbkiE53iV4Tkf XA+PHRy Jsl6CWUavOpaOB3ruOArJWn gAy9wKTS5AlBhUyEbLJguC9 SwUNYhvzbrnmkycDC7UVTfY DUwaW47 Ez1ryQnwBn7bBYAcLFT7VHC vdNStC6BvrF3aQmRmZEFvKD KkU5FgcBKlVZmeV140TNanY pD4KKPx xhXeP4JuREZaoDmpFqQ0t4I 8Xk6EeJzlgHCjSL4zEoWjND j0Z9QfMqx0WUKppOaiRL3ab GFkZGlu Cg4zeNrehFkeQK6zYFOzknq qj105IqNwt8aaWFXyqYEiNO xqXHX2D98iy5R7XBZpBOAwO KI7aJF2 aW9fiOznsoywjKVchZcxqlM liSufSTtnKGubF424YVDnnW txIbAMKvn8R2BbKlt4RBPex RsbGO7o vDRgWNbdZl2kkFrfnOgsIW9 xNOLpcccam118QyXuj7jsDN FvsYCdACpqMXV2D43bv8T0G CMwMDAw GDE4oQS7dW3joRxcbknieRW mdDsgdmVydGljYWwtYWxpZ2 40WHBsuAxiFg6LBwr6S4OkS tv4HKCg qUtdWZ7asIPxAEypSr5oeHb tbNivUO3xBZViqdwrn079Kd Kxv3dgGAGaiGWeAKwgXZL6L 41zy4H8 WNJnRCEkHRA5rDU8iZ3qhRz nbjogbGVmdDsgdmVydGljYW cmEJecS502RSPexCvyEzSdo WVyOjwv dGQ+TC88bz15O5KjIjaoLoq 1MUEvDNF8iGP8fU8jNEYkUP uuc5K9fUA9O5ZytvPqts4vt 2xsYXBz ZTo (more content not included)... Normal [facility] Inpatient Patient Summaryon 08-15-2021 Inpatient Patient Summary [place] [id number] Patient Discharge Instructions Name: YASMIN JONES : 1970 Patient Address: [address] [place] [address] Primary Care Provider: Name: RANDY CALLE After you are discharged if you find you have any questions, please, call [phone] ext [phone] to speak to a nurse. Discharge Diagnosis: Prescription Information: If you have been given a prescription for narcotics, seek immediate medical attention if you have any difficulty breathing or any sudden status changes such as confusion and sleepiness. If you or anyone you know is experiencing suicidal thoughts, mental health, alcohol and/or drug addiction problems; contact the [facility] 22/09 Crisis Hotline -Text 4HUYZ ge [phone]. If you received any narcotics, sedation, or [...] business decisions or sign any legal documents [facility] would like to thank you for allowing us to assist you with your healthcare needs. The following includes patient education materials and information regarding your injury/illness. YASMIN JONES has been given the following list of follow-up instructions, prescriptions, and patient education materials: Follow-up Instructions With: Address: When: MYESHA VINSON [address] [place] [address], [place] [phone] Business (1) 09/03/2021 9:15 AM With: Address: When: RANDY CALLE [address] [place], [place] [address] [address] Business (1) Medications During the course of your visit, your medication list was updated with the most current information. The details of those changes are reflected below: Medications That Were Updated - Follow Below Instructions Other Medications Updated: potassium chloride (Potassium Chloride (Oas-Poeh-Iut 10) 10 mEq oral tablet, extended release) [...] Oral every day. potassium chloride (Potassium Chloride (Ceu-Itja-Ymm 10) 10 mEq oral tablet, extended release) [...] for Disease Control and Prevention October 2013 [facility] Patient Handouton 08-15-2021 Patient Handout [facility] Progress Note - Nurseon 07-31 Progress Note - Nurse Dr. Small reviews PAT information and testing results. Ok to proceed, no orders given. [Electronically Signed on: 08/14/2021 12:02 EDT] Dary Gallegos RN [Verified on: 08/14/2021 12:02 EDT] Dary Gallegos RN Normal [facility] .Auto Diff 1on 08-12-2021 Auto Grant % 8 % Normal 12 [facility] Comment on above: Performed By: #### 1 [id number] ####[facility] (DEFAULT)[address] [place] [address] Baso Abs# 0.1 x10 Normal 0.0-0.2 [facility] Comment on above: Performed By: #### 1 [id number] ####[facility] (DEFAULT)[address] [place] [address] Basophils/100 WBC (Bld) 0.9 % Normal 0.2-2.0 [facility] Comment on above: Performed By: #### 1 [id number] ####[facility] (DEFAULT)[address] [place] [address] Eos Abs# 0.3 x10 Normal 0.0-0.4 [facility] Comment on above: Performed By: #### 1 [id number] ####[facility] (DEFAULT)[address] [place] [address] Eosinophils/100 WBC (Bld) 3.9 % Normal 0.9-4.0 [facility] Comment on above: Performed By: #### 1 [id number] ####[facility] (DEFAULT)[address] [place] [address] Lymph Abs# 2.6 x10 Normal 1.3-2.9 [facility] Comment on above: Performed By: #### 1 [id number] ####[facility] (DEFAULT)[address] [place] [address] Lymphocytes/100 WBC (Bld) 30 % Normal 14-48 [facility] Comment on above: Performed By: #### 1 [id number] ####[facility] (DEFAULT)[address] [place] [address] Grant Abs# 0.7 x10 Normal 0.0-0.8 [facility] Comment on above: Performed By: #### 1 [id number] ####[facility] (DEFAULT)[address] [place] [address] Neut Abs# 5.0 x10 Normal 1.5-9.2 [facility] Comment on above: Performed By: #### 1 [id number] ####[facility] (DEFAULT)[address] [place] [address] Neutrophils/100 WBC (Bld) 58 % Normal 44-88 [facility] Comment on above: Performed By: #### 1 [id number], [id number], [id number] ####[facility] (DEFAULT)[address] [place] [address] Standardon 08-12-2021 eGFR Non AA >60 Invalid Interpretation Code [facility] Comment on above: Performed By: #### 1 [id number], [id number], [id number] ####[facility] (DEFAULT)[address] [place] [address] eGFR AA >60 Invalid Interpretation Code [facility] Comment on above: Result Comment: Generator Operator medina Kidney disease could be indicated at eGFRs of less than 60 ml/min/1.73m2. Kidney Failure is indicated at less than 15 ml/min/1.73m2 Performed By: #### 1 [id number], [id number], [id number] ####[facility] (DEFAULT)[address] [place] [address]14 Anion gap [Moles/Vol] 14.0 mmol/L Normal 5.0-19.0 [facility] Comment on above: Performed By: #### 1 [id number], [id number], [id number] ####[facility] (DEFAULT)[address] [place] [address] 61391 Calcium [Mass/Vol] 9.6 mg/dL Normal 8.9-10.3 [facility] Comment on above: Performed By: #### 1 [id number], [id number], [id number] ####[facility] (DEFAULT)[address] [place] [address]74 Chloride [Moles/Vol] 102 mmol/L Normal 101-111 [facility] Comment on above: Performed By: #### 1 [id number], [id number], [id number] ####[facility] (DEFAULT)[address] [place] [address] 11999 CO2 [Moles/Vol] 25 mmol/L Normal 21-32 [facility] Comment on above: Performed By: #### 1 [id number], [id number], [id number] ####[facility] (DEFAULT)[address] [place] [address] 11890 Creatinine [Mass/Vol] 0.72 mg/dL Normal 0.60-1.30 [facility] Comment on above: Performed By: #### 1 [id number], [id number], [id number] ####[facility] (DEFAULT)[address] [place] [address] 28567 Glucose [Mass/Vol] 100.0 mg/dL Normal 74.0-118.0 [facility] Comment on above: Performed By: #### 1 [id number], [id number], [id number] ####[facility] (DEFAULT)[address] [place] [address] 48157 Osmolality 275 mOsm/L Invalid Interpretation Code [facility] Comment on above: Performed By: #### 1 [id number], [id number], [id number] ####[facility] (DEFAULT)[address] [place] [address] 32814 Potassium [Moles/Vol] 3.4 mmol/L Low 3.6-5.1 [facility] Comment on above: Performed By: #### 1 [id number], [id number], [id number] ####[facility] (DEFAULT)[address] [place] [address] 25845 Sodium [Moles/Vol] 138.0 mmol/L Normal 136.0-144.0 [facility] Comment on above: Performed By: #### 1 [id number], [id number], [id number] ####[facility] (DEFAULT)[address] [place] [address] Urea nitrogen [Mass/Vol] 10 mg/dL Normal 8-26 [facility] Comment on above: Performed By: #### 1 [id number], [id number], [id number] ####[facility] (DEFAULT)[address] [place] [address] Urea nitrogen/Creatinine [Mass ratio] 14.0 mg/mg Normal 4.6-16.2 [facility] Comment on above: Performed By: #### 1 [id number], [id number], [id number] ####[facility] (DEFAULT)[address] [place] [address] CBC w/ Auto Diffon 2 Erythrocyte distribution width (RBC) [Ratio] 14.6 % Normal 11.5-15.0 [facility] Comment on above: Order Comment: CBC C LOTTED. PATIENT CALLED BACK FOR RECOLLECT. Performed By: #### 1 [id number], [id number], [id number] ####[facility] (DEFAULT)[address] [place] [address] Hematocrit (Bld) [Volume fraction] 35.0 % Normal 33.7-40.4 [facility] Comment on above: Order Comment: CBC C LOTTED. PATIENT CALLED BACK FOR RECOLLECT. Performed By: #### 1 [id number], 6241557, [id number] ####[facility] (DEFAULT)[address] [place] [address] 84072 Hemoglobin (Bld) [Mass/Vol] 11.0 g/dL Low 11.3-15.9 [facility] Comment on above: Order Comment: CBC C LOTTED. PATIENT CALLED BACK FOR RECOLLECT. Performed By: #### 1 [id number], [id number], [id number] ####[facility] (DEFAULT)[address] [place] [address] Instr WBC 8.6 x10 Invalid Interpretation Code [facility] Comment on above: Order Comment: CBC C LOTTED. PATIENT CALLED BACK FOR RECOLLECT. Result Comment: CBC RECOLLECTED @ 08/12/2021 15:15:27 EDT BY MHDMITCHELL. GILMORE. Performed By: #### 1 [id number], [id number], [id number] ####[facility] (DEFAULT)[address] [place] [address] Man Diff? Auto Normal [facility] Comment on above: Order Comment: CBC C LOTTED. PATIENT CALLED BACK FOR RECOLLECT. Performed By: #### 1 [id number], [id number], [id number] ####[facility] (DEFAULT)[address] [place] [address] MCH (RBC) [Entitic mass] 25 pg Normal 24-34 [facility] Comment on above: Order Comment: CBC C LOTTED. PATIENT CALLED BACK FOR RECOLLECT. Performed By: #### 1 [id number], [id number], [id number] ####[facility] (DEFAULT)[address] [place] [address] MCHC (RBC) [Mass/Vol] 31 g/dL Normal 26-37 [facility] Comment on above: Order Comment: CBC C LOTTED. PATIENT CALLED BACK FOR RECOLLECT. Performed By: #### 1 [id number], [id number], [id number] ####[facility] (DEFAULT)[address] [place] [address] 38571 MCV (RBC) [Entitic vol] 79 fL Low 81-100 [facility] Comment on above: Order Comment: CBC C LOTTED. PATIENT CALLED BACK FOR RECOLLECT. Performed By: #### 1 [id number], [id number], [id number] ####[facility] (DEFAULT)[address] [place] [address] Platelet 491 x10 High 138-427 [facility] Comment on above: Order Comment: CBC C LOTTED. PATIENT CALLED BACK FOR RECOLLECT. Performed By: #### 1 [id number], [id number], [id number] ####[facility] (DEFAULT)[address] [place] [address] Platelet mean volume (Bld) [Entitic vol] 9.4 fL Normal 6.3-10.2 [facility] Comment on above: Order Comment: CBC C LOTTED. PATIENT CALLED BACK FOR RECOLLECT. Performed By: #### 1 [id number], [id number], [id number] ####[facility] (DEFAULT)[address] [place] [address] 03181 RBC 4.41 x10 Normal 3.70-5.30 [facility] Comment on above: Order Comment: CBC C LOTTED. PATIENT CALLED BACK FOR RECOLLECT. Performed By: #### 1 [id number], [id number], [id number] ####[facility] (DEFAULT)[address] [place] [address] 44080 WBC 8.6 x10 Normal 3.5-10.5 [facility] Comment on above: Order Comment: CBC C LOTTED. PATIENT CALLED BACK FOR RECOLLECT. Performed By: #### 1 [id number], [id number], [id number] ####[facility] (DEFAULT)[address] [place] [address] 13614 MRI Knee w/o Lefton 07-27-19 MRI Knee [...] by Michael Pappas on 07/28/[address] [facility] Sweep Press Operator BASIC METABOLIC PANELon 05-01 BUN/CREATININE RATIO NOT APPLICABLE Normal - [facility] Comment on above: Order Comment: FASTI NG:YES FASTING: YES Performed By: #### 1 [id number] #### [facility] [address], [address] [place] [address] Stave Cutting Supervisor: Heraclio Miller MD Calcium [Mass/Vol] 9.0 mg/dL Normal 8.6-10.4 [facility] Comment on above: Order Comment: FASTI NG:YES FASTING: YES Performed By: #### 1 0165 #### [facility] [address], [address] [place] [address] [employer]ave Cutting Supervisor: Heraclio Miller MD Chloride [Moles/Vol] 106 mmol/L Normal 98-110 [facility] Comment on above: Order Comment: FASTI NG:YES FASTING: YES Performed By: #### 1 0165 #### [facility] [place] [address] [employer] Supervisor: Heraclio Miller MD CO2 [Moles/Vol] 27 mmol/L Normal 20-32 [facility] Comment on above: Order Comment: FASTI NG:YES FASTING: YES Performed By: #### 1 0165 #### [facility] [place] [address] [employer] Supervisor: Heraclio Miller MD Creatinine [Mass/Vol] 0.73 mg/dL Normal 0.50-1.05 [facility] Comment on above: Order Comment: FASTI NG:YES FASTING: YES Result Comment: For patients >49 years of age, the reference limit for Creatinine is approximately 13% higher for people identified as -Citizen Of [place]. Performed By: #### 1 0165 #### [facility] [place] [address] [employer] Supervisor: Heraclio Miller MD eGFR NON-AFR. BRITISH 96 mL/min/1.73m2 Normal > OR = 60 [facility] Comment on above: Order Comment: FASTI NG:YES FASTING: YES Performed By: #### 1 0165 #### [facility] [place] [address] [employer] Supervisor: Heraclio Miller MD GFR/1.73 sq M.predicted among blacks MDRD (S/P/Bld) [Vol rate/Area] 111 mL/min/{1.73_m2} Normal > OR = 60 [facility] Comment on above: Order Comment: FASTI NG:YES FASTING: YES Performed By: #### 1 0165 #### [facility] [place] [address] [employer] Supervisor: Heraclio Miller MD Glucose [Mass/Vol] 85 mg/dL Normal 65-99 [facility] Comment on above: Order Comment: FASTI NG:YES FASTING: YES Result Comment: Fasting reference interval Performed By: #### 1 0165 #### [facility] [place] [address] [employer] Supervisor: Heraclio Miller MD Potassium [Moles/Vol] 3.7 mmol/L Normal 3.5-5.3 [facility] Comment on above: Order Comment: FASTI NG:YES FASTING: YES Performed By: #### 1 0165 #### [facility] [place] [address] [employer] Supervisor: Heraclio Miller MD Sodium [Moles/Vol] 140 mmol/L Normal 135-146 [facility] Comment on above: Order Comment: FASTI NG:YES FASTING: YES Performed By: #### 1 0165 #### [facility] [place] [address] [employer] Supervisor: Heraclio Miller MD Urea nitrogen [Mass/Vol] 12 mg/dL Normal 7-25 [facility] Comment on above: Order Comment: FASTI NG:YES FASTING: YES Performed By: #### 1 0165 #### [facility] [address], [address] [place] [id number] [employer] Supervisor: Heraclio Miller MD Coding Summaryon 01-28-2021 Coding Summary HTMLBase 64 WwiuaauoOSw4iGo+PGhlYWQ +TL3SITLlA63snZMvmZ5SV5 xEIU1EVRMXAWWDSE0EIZ7lm LQ0KNuxQ1MfbzRf DcjhaEXpCB05NFt4MTK9bAk oXVwioM1rzCKuW3s7HgGjYE 96hJ35RHkbMBUbEzN4RvPdi jsgbWFy S1baCbSowOHoEgn+PHRhYmx lIHdpZHRoPScxMDAlJyBzdH jvZA1hIj6rBPDxMWNidRjlc HNlOiBj s8rwMDRfYUjlTL5cxNzyO7F rfKL7OSMnu7p5Jr96aCJ+PH AiJBJ8tFgdCWuwk190CtRtd 0egUTB9 lJCvSHyaHJV5S68yl4O1OVV iYYXrADS5lLG5eV4omWvrsr dmN0IifCFeKwW7MAQ0fAAyl F9vtVbz rhzfoR0nFqs+Q72GRR3RSOL SWJ7DOrx3W7FyWsbceIV+PC 05ADUsZN52sUWyuGUui0iht Yt4QiOr FNIeLTV9oUdnQQvkq3KcVEA dA97bkUXdc0I4GLCmmLhpuL ZkFiYgsNC0iG1qXLfrcmbqj 2hvdzsn Rzmkv5pipn18mV41R24aVYj kMPElGKZ9ZAGaLSMflLtnub 0npF6eNy7+YRpgo0ltr6fdt Kv8OvRb UNUpspMjkDnhCDX1n5QaUz2 7V1XheAmrw3HqFng5qg80nG Trs1L1aED4IZakXJQnkB3aT WxlZnQ6 EJUdVnOzvU62aZMeYSvdEm3 ezRvufJzeNC2kBPIxrbxvYO TvcS7cRUFvdSKosThnWV3cI TBpbjtm n583IrAuGUT9SSGihMYbJ0M mtY8lQeLdVGJuGWSaL5ImbA RxAHedR471WPwcWbV2NVIfk qXfV8Dh LIPtzBliNpQ8s9H6Dy6Ow3O irsitWEE2WHewDOQsIwT9Si DqRpV9H6PnWcn2HHWgaGmwZ W0oB6Yx JFSyvzqmmmvxdNL2DCTjJPS hxB83mRYyUJtkCa5wc1B0y1 06NVNsKZWkxY02Dy5xaBioN TBwdCBU tS4nspzqx3yipjwyIcCeQFK tWSn7EUs2MEWkyMrpNnZdDV B6XpC2WNS8nUAvtF0hgHzwv tiixS0s Oyc+G13zoB9fXML6JDS3yzl yGUXiawJpLE63PK91G5KzTi wvdGFibGU+PGRpdiBzdHlsZ E9mDqRt y4nwz2WjFMbxX2WzSSRwBPb kCkr4UIUxIYD5qDE2jO0yAM FjONdqz6M2uTC2G5OngaReh c6bs1na EMQmPNveY78weFHft9I8CYV tnCG7DIWflDdyWfSjfU19Nb c+XEEctJqip9EvEcves6wwn 1ybfYs2 BeVoOBGymmMhwDknQVH0f6R dMd95L67fABscXKChDEVdON TsYMVpiOjczd4ujY1sVx8+P GNvbCB3 kWQ2oC0lGTNyQiH2IYkbX02 6TnYyyFOdRdwvg0rbe0epdR k3FmHzYFMvveGjkBxtHMX6f 6RcPv98 B44nHRmjYIHtCFFmTYLbWOA ysMhrtc4azO9uIk9+PC9jb2 cube81zA38bIG+SEOmKLT9g WxlPSdw EHNfvE4tXJqmItW5CHBmWiT khW00dUAaDJguBx6wfNtrcU yaLQ8cDDScaxbbs178XoEgv 2xkIDEw aOXkCNxcBUX4A21in2B9YIF fFVNuTMM9aCX1rZ6ihQkhua ogbGVmdDsgdmVydGljYWwtY WrkC814 IHRvcDsnPlBhdGllbnQgTmF dQRe3C7SvCuw4ZNYoiPdaBK 8sfAIyQPnpOy0veKekeVwdQ E4uETJn odvjv482QnTve3fnHEZbrTH nUFbjGOB2S10xg9U0PLLdAZ RaSRW3eLS4rI2mmJoscebgu GVmdDsg uhWbtBcxQKwbLSlsF538KNA otIcqDcCvekIbDWMmvRA9JO 39TW18eDXny7P4kSC4K1ZoK GRpbmct ihprdMB8UWGaEOJkkR54Ev1 zhGeeBb2fKUAoPYA5YOZjnO VyQ5MzgL6tDzObOTUkVZUsN 3RleHQt EXetD228CPhtJqI3QSRyxoZ cW5HcMKCsiMajWzH1p8Z4Ee 8FV5F6UU90HW52sRTdp0C3d NQ7X1If YHJjxllqnslmoAU8YBHxDOV lhH55Sh7jwZjuQd1wQBOkLN C4NJRlzOVnQ7ZwgO6tJtJbS DAwMDAw J7KlrNFsKEmhY505RQygNzK 2GSMcdsQiW4BqCGPvkCreMl K4v8Q3Bg7OELe1XZ53ZX79f SYud4V3 kQB1D3OmEFPbxbcowxfzrRO 0OEOoGDZxmN84Ns0qxZxxEy 2bBYFiQII7EJReuNTyF7Bnd V9nIaQl XRWtOCAlC6GreVKhYCmxS25 5IPpmVbB5XULzbtDrR2RvCJ HtkVcyZbJ5o9N0Zz0ZQRNdJ V17EAB0 pNP0XJ54GE19R6IfPbziqSU ibGU+PHRhYmxlIHdpZHRoPS dxQZTaSzEjoNrxTX3mPs6iE GVyLWNv pRqefWSaYvSby8efIJXtPGk vFJ4jxZzuM8LbpDF2NNAfi6 r4Fp63J34bI4FdjFP+PGNvb HQ1pWE2 fG1jImAfBfQ4UPhqU767SgY knINpBioce4mcx9kltEn0Wi K0BPPpstJcpQvpVWO5a6AnM e59Y85g IHdpZHRoPSIxNSUiIHZhbGl aqq1szJ6kOq8+IDNepGG3bQ G8yY0tYpOpKoU3QJisK576X nRvcCIv Liocx5vmy6sciQy9AvBaRKD nnbLhvCtcTHG9c2MyGw46A8 IaiQkvi4HdFhh9vr23qLXhf 1B0mOP8 C6HkNYRqnwqapWGxmJmuPU1 lFJNvkmitBBZbhM9bGFFmN7 g2IqKhKzC7MCghQ4MfuuT7Z DEwcHQg SSqmBBR2A76zd5S4LZSjPQR vBJO0nQR9jY4xuAulotlrvH VmdDsgdmVydGljYWwtYWxpZ 246IHRv cIyuOSPdzN4mXATedMOyqTo wGE3iARFdteubRkaIFE8OPm wgRUxJWkFCRVRIIEFOTjwvd GQ+PHRk THE6iDjwFZzhCMVxiT8vUNC iF0q0LyVfRaG6DXmrC1NbFW SulcjcMt07nO8hHtXkRgU5H EtzR1Vb bvV3WUQeqFGkAQdxTJJ4W49 gq1O9BPLqGZOpPXV0oLQ3nD 1hbGlnbjogbGVmdDsgdmVyd GljYWwt NRoiY878FMCvqIsmTsG5NuB mOcL8OqU0T2JcCau7CEGqvV gcCE6zsYPcSSbaQz9dnRyif ShdFE4r KXPgkabaOXEvyI9bTHTalBR egTpbPI2cLEDftbuym905Zm KkIMM8HVOrlLMsW9DiuL6fN iAjMDAw EFXjF3JzmXYcURqgJ418TLn tPkJ9XUSasyNmZ9EaMMBcbD hzXkN3n7O1If65VMZWAPWmg zwvdGQ+ SZWiIWY4qYnxCRhzWYXluL2 aFFMzY3p2UoPjQvH5AQchY4 XoMNIgwykaGw58mK9xUrYrN fD6LMrt J6ShiyJ5OPOytVZkZUesPZN 8Z19io5W9ABJuOOWeWMO3jM X2kD0ykYsczswhfQFyeGafv mVydGlj UAouCVrjA343GBOmkXzeTdK FTUFMRTwvdGQ+FFViJMH9qG rtKQwiGOCdjE4mNEEsY2f8Q iAwLjA1 ETnlF3MuRGWiqwkxEf63pC8 jMjGzBuU6KIkaI3BczcE8AY MuiJLaUQkvTJV3Q08cr5L3I CMwMDAw AXT0zBW9wH3hrFmwtngldIF mdDsgdmVydGljYWwtYWxpZ2 46IHRvcDsnPkRheSBTdXJnZ BZ9GK24 PT08B2CaXgvidUEosIF+PHR hYmxlIHdpZHRoPScxMDAlJy CgiYirOX1iIh7jZFLrNUXxy GxhcHNl DdWty6kfMPPuKYteOC4hrGf kF9XxlPK9YZHqz8r3Ju41H7 7iS9CmeLS+JMXbaCA3aVI9y M6qFqJt JkC5JHjjT343ToFwnWWrIyd et6kho8tqpCc1RjUrBYBaco FbsZtdQDJ8t2GbRp24X61pP HdpZHRo NSFgUTRiQKPkvNzwus3jzE5 wIi8+BHLefPT3mXM8vM8eMh GnOuT7QQqtT955EiNsaGJhG xglU42n Y9GjrFV+CXRwYdd5OPGdrKw vUZ8ieJLpAIreLm7lYSS4Ox WvNvFuHVviF9TkPSNyyutmg mlnaHQ6 ZEUaKQAwzS34Qq9yhLcqGr0 fOLTvAEU8POHjoXPpF0QriM 4pPcLaPFXaPMIoK8MuhCDtJ BmfN470 GKrhDuP5EHIglwGvP2DzBNO xqUbjYpY3o9S2Ao6DfUpdbM MhTP9gYkIiFAi3T8OmLft7A CBzdHls WR2chJLaNLkxSa3ifMkqaZy kPL2fQFXlohndz023QuLda5 rtEMRbzHQzIWabDBT7B08bd 4H6ECUd UDLjIIE8dLI8bV7veSgfvoj gbGVmdDsgdmVydGljYWwtYW cqE607EUVvxEzwOuKOOjk5U 4SqRgk4 NNGjvFbvOA6jdLTwKBraUb9 pdAjuwGuzIT6yYFSrxpfav0 01XnJnb3xoLNGyuCWzAPubY XI8U95y v4U1XHXsTBVtAUS0vLO5fS7 hbGlnbjogbGVmdDsgdmVydG fkLAhsFSftQ449ZBOpxOonB h1PPzq3 Y7OmWbi8TFGyhUwqHD5lkAG gJMsiJh1ovRfomGrzXF6vSQ Pxzspig848NxEja5rpYWUsy HQgVGlt AIV0X02er8U7BVAsPILoAXT 2tYH4iA4cuCpxojfmeHBgiM oahgRluDchGPkiBRjuF711U HRvcDsn PlBheWVyOjwvdGQ+VP28td0 6D2CnMyylVzy6IYImQKA5uO U4bQ3eICSbMHmwz5R0nRC8C 2JvcmRl ci1 (more content not included)... [facility] Consent Formson 01-23-2021 Consent Forms [id number]#1.00O TGTIFF [facility] MAGR PACU Recordon MAGR PACU Record MAGR PACU Record Summary Primary Physician: Hua Oglesby DO Finalized Date/Time: 01/23/21 13:00:07 Pt. Name: ROBERT YASMINROSS [place]/Sex: 1970 FEMALE Med Rec #: [id number] Physician: Hua Oglesby DO Financial #: [id number] Pt. Type: D Room/Bed: / Admit/Disch: 01/21/21 06:05:01 - 01/21/21 10:08:00 Institution: PACU Case Times MAGR Entry 1 In PACU I 01/21/21 08:20:00 Discharge from PACU 01/21/21 09:04:00 I Last Modified By: Lisa Connell RN 01/23/21 13:00:04 Finalized By: Lisa Connell RN Document Signatures Signed By: Lsia Connell RN 01/23/21 13:00 [facility] Consent Formson 01-22-2021 Consent Forms [id number]#1.00O TGTIFF [facility] Discharge Instructionson Discharge Instructions [id number]#1.00O TGTIFF [facility] Telemetry Stripson Telemetry Strips [id number]#1.00O TGTIFF [facility] Anesthesia Noteon 01-21-2021 Anesthesia Note Patient: YASMIN JONES Age: 50 years Sex: FEMALE : [...] on: 01/21/2021 08:25 EST] Gen Jean MD [facility] Anesthesia Note Patient: YASMIN JONES Age: 50 years Sex: FEMALE : 1970 Associated Diagnoses: None Author: Gen Jean MD Preoperative Information Anesthesia history: Patient history: Nausea and vomiting with anesthesia, No difficult intubation, No malignant hyperthermia. Family history: No malignant hyperthermia. Review of Systems Respiratory: No shortness of breath, No apnea. Cardiovascular: No known [place], No chest pain. Gastrointestinal: No heartburn. Health [...] All Problems HTN (hypertension) / SNOMED CT [id number] / Confirmed Histories Family History: No family history items have been selected or recorded. Procedure history: Abdominal hysterectomy (668382822). Arthroscopy of knee ([id number]). Lipoma ([id number]). Comments: 01/04/2021 11:19 OSKAR Becker RN, Milana [...] (JAN 21:) Resp Rate 16 br/min (JAN 21:) SBP H 169 mmHg (JAN 21:46) DBP H 103 mmHg (JAN 21:) General: Alert and oriented, No acute distress. Airway: Mallampati classification: II (soft palate, fauces, uvula visible). Respiratory: Respirations are non-labored. Cardiovascular: Normal rate. Review / Management Laboratory Results ECG interpretation: Within normal limits. Plan Citizen Of [place] Society of Anesthesiologists#(ASA) physical status classification: Class II. Anesthetic Preoperative Plan Anesthesia: General. . Anesthetic plan, risks, benefits, and alternatives discussed with the patient and/or family. Patient verbalized understanding. Family/Guardian present. Informed consent was given. Consent was signed by the patient. [Electronically Signed on: 01/21/2021 07:10 EST] Gen Jean MD [Verified on: 01/21/2021 07:10 EST] Gen Jean MD Normal [facility] Inpatient Patient Summaryon 01-21-2021 Inpatient Patient Summary [address] [address] Patient Discharge Instructions Name: YASMIN JONES : 1970 Patient Address: [address] [facility] [address] Primary Care Provider: Name: RANDY CALLE After you are discharged if you find you have any questions, please, call [phone] ext [phone] to speak to a nurse. Discharge Diagnosis: [...] alcohol and/or drug addiction problems; contact the [facility] 22/09 Crisis Hotline -Text 4HNHK dj 684154. If you received any narcotics, sedation, or [...] business decisions or sign any legal documents [facility] would like to thank you for allowing us to assist you with your healthcare needs. The following includes patient education materials and information regarding your injury/illness. YASMIN JONES has been given the following list of follow-up instructions, prescriptions, and patient education materials: Follow-up Instructions With: Address: When: MYESHA VINSON [address] [place] [address], [address] [place] [address] Business (1) 01/30/2021 11:00 AM With: Address: When: [place] [address] Business (1) Medications During the course of [...] or concerns, please call the office at [phone] Viruses or Bacteria What?s got you sick? [...] (except strep) (more content not included)... Normal [facility] MAGR Intraoperative Recordon 01-21-2021 MAGR Intraoperative Record MAGR Intra-Op Record Summary Primary Physician: Hua Oglesby DO Finalized Date/Time: 01/21/21 11:10:34 Pt. Name: YASMIN JONES/Sex: 1970 FEMALE Med Rec #: [id number] Physician: Hua Oglesby DO Financial #: [id number] Pt. Type: D Room/Bed: / Admit/Disch: 01/21/21 [...] Role Performed Surgeon - Primary Anesthesiologist of Electrical Supervisor Record Time In 01/21/21 07:22:00 01/21/21 07:22:00 01/21/21 07:22:00 Time Out 01/21/21 08:17:00 01/21/21 08:17:00 01/21/21 08:17:00 Procedure Arthroscopy Knee(Right) Arthroscopy Knee(Right) Arthroscopy Knee(Right) Last Modified By: Dorothy Archer RN, Barbara RN Long, Barbara RN 01/21/21 08:21:11 01/21/21 08:21:11 01/21/21 08:21:11 Entry 4 Entry 5 Case Attendee Nemo Mendez CST, Regina CST Role Performed Scrub Personnel Benefits Coordinator Time In 01/21/21 07:22:00 01/21/21 07:22:00 Time [...] 07:55:36 Post-Care T (more content not included)... [facility] MAGR Postoperative Recordon 01-21-2021 MAGR Postoperative Record MAGR Phase II Record Summary Primary Physician: Hua Oglesby DO Finalized Date/Time: 01/21/21 10:17:55 Pt. Name: REZA JONESSD Garduno/Sex: 1970 FEMALE Med Rec #: [id number] Physician: Hua Oglesby DO Financial #: [id number] Pt. Type: D Room/Bed: / Admit/Disch: 01/21/21 [...] Signed By: Marianna Gerber RN 01/21/21 10:17 [facility] Preoperative Recordon 1 03-23-2020 [facility] Preoperative Record [facility] Pre-Op Record Summary Primary Physician: Hua Oglesby DO Finalized Date/Time: 01/21/21 08:40:07 Pt. Name: LAKIA JONESROSS Garduno/Sex: 1970 FEMALE Med Rec #: [id number] Physician: Hua Oglesby DO Financial #: [id number] Pt. Type: D Room/Bed: / Admit/Disch: 01/21/21 [...] By: Carolina Painter RN 01/21/21 08:40 Normal [facility] Operative Report - Surgeon/P aster 01-21-2021 [...] on: 01/21/2021 10:16 EST] Hua Oglesby DO [facility] Patient Handouton 01-21-2021 Patient Handout [...] or concerns, please call the office at [phone] [facility] COMPREHENSIVE METABOLIC PANE [place] 01-12-2021 Albumin [Mass/Vol] 4.3 g/dL Normal 3.6-5.1 [facility] Comment on above: Performed By: #### 7 600, [id number] #### [facility] of [place] [address] [employer] Supervisor: Heraclio Miller MD Albumin/Globulin [Mass ratio] 1.8 {ratio} Normal 1.0-2.5 [facility] Comment on above: Performed By: #### 7 600, [id number] #### [facility] of [address], [address] [place] [address] [employer] Supervisor: Heraclio Miller MD ALP [Catalytic activity/Vol] 60 U/L Normal 37-153 [facility] Comment on above: Performed By: #### 7 600, [id number] #### [facility] of [place] [address] [employer] [employer] Supervisor: Heraclio Miller MD ALT [Catalytic activity/Vol] 17 U/L Normal 6-29 [facility] Comment on above: Performed By: #### 7 600, [id number] #### [facility] of [place] [address] [employer] [employer] Supervisor: Heraclio Miller MD AST [Catalytic activity/Vol] 18 U/L Normal 10-35 [facility] Comment on above: Performed By: #### 7 600, [id number] #### [facility] of [place] [address] [employer] Supervisor: Heraclio Miller MD Bilirubin [Mass/Vol] 1.1 mg/dL Normal 0.2-1.2 [facility] Comment on above: Performed By: #### 7 600, [id number] #### [facility] of [place] [address] [employer] [employer] Supervisor: Heraclio Miller MD BUN/CREATININE RATIO NOT APPLICABLE Normal 6-22 [facility] Comment on above: Performed By: #### 7 600, [id number] #### [facility] of [address], [address] [place] [address] [employer] Supervisor: Heraclio Miller MD Calcium [Mass/Vol] 9.3 mg/dL Normal 8.6-10.4 [facility] Comment on above: Performed By: #### 7 600, [id number] #### [facility] [place] [address] [employer] Supervisor: Heraclio Miller MD Chloride [Moles/Vol] 105 mmol/L Normal 98-110 [facility] Comment on above: Performed By: #### 7 600, 76049 #### [facility] [place] [address] [employer] Supervisor: Heraclio Miller MD CO2 [Moles/Vol] 28 mmol/L Normal 20-32 [facility] Comment on above: Performed By: #### 7 600, 83521 #### [facility] [place] [address] [employer] Supervisor: Heraclio Miller MD Creatinine [Mass/Vol] 0.86 mg/dL Normal 0.50-1.05 [facility] Comment on above: Result Comment: For patients >49 years of age, the reference limit for Creatinine is approximately 13% higher for people identified as -Citizen Of [place]. Performed By: #### 7 600, 19951 #### [facility] [place] [address] [employer] Supervisor: Heraclio Miller MD eGFR NON-AFR. BRITISH 79 mL/min/1.73m2 Normal > OR = 60 [facility] Comment on above: Performed By: #### 7 600, 75923 #### [facility] [place] [address] [employer] Supervisor: Heraclio Miller MD GFR/1.73 sq M.predicted among blacks MDRD (S/P/Bld) [Vol rate/Area] 91 mL/min/{1.73_m2} Normal > OR = 60 [facility] Comment on above: Performed By: #### 7 600, 65400 #### [facility] [place] [address] [employer] Supervisor: Heraclio Miller MD Globulin (S) [Mass/Vol] 2.4 g/dL Normal 1.9-3.7 [facility] Comment on above: Performed By: #### 7 600, 57654 #### [facility] [place] [address] [employer] Supervisor: Heraclio Miller MD Glucose [Mass/Vol] 86 mg/dL Normal 65-139 [facility] Comment on above: Result Comment: Non-fasting reference interval Performed By: #### 7 600, 46571 #### [facility] [address], [address] [place] [address] [employer] Supervisor: Heraclio Miller MD Potassium [Moles/Vol] 3.9 mmol/L Normal 3.5-5.3 [facility] Comment on above: Performed By: #### 7 600, 43982 #### [facility] [place] [address] [employer] Supervisor: Heraclio Miller MD Protein [Mass/Vol] 6.7 g/dL Normal 6.1-8.1 [facility] Comment on above: Performed By: #### 7 600, 83807 #### [facility] [place] [address] [employer] Supervisor: Heraclio Miller MD Sodium [Moles/Vol] 140 mmol/L Normal 135-146 [facility] Comment on above: Performed By: #### 7 600, 72965 #### [facility] [place] [address] [employer] Supervisor: Heraclio Miller MD Urea nitrogen [Mass/Vol] 15 mg/dL Normal 7-25 [facility] Comment on above: Performed By: #### 7 600, 93067 #### [facility] [place] [address] [employer] Supervisor: Heraclio Miller MD LIPID PANEL, [facility] 11- Cholesterol [Mass/Vol] 173 mg/dL Normal <200 [facility] Comment on above: Order Comment: FASTI NG:NO FASTING: NO Performed By: #### 7 600, 81798 #### [facility] [address], [address] [place] [address] [employer] Supervisor: Heraclio Miller MD Cholesterol in HDL [Mass/Vol] 69 mg/dL Normal > OR = 50 [facility] Comment on above: Order Comment: FASTI NG:NO FASTING: NO Performed By: #### 7 600, 76259 #### [facility] [address], [address] [place] [address] [employer] Supervisor: Heraclio Miller MD Cholesterol in LDL [Mass/Vol] [...] LDL-C. Campos CAMARENA et al. MARQUISE. 2013;310(19): 5961-5457 (http://education.[employer]/faq/YJI409) Performed By: #### 7 600, 92418 #### [facility] [address], [address] [place] [address] [employer] Supervisor: Heraclio Miller MD Cholesterol.total/C holesterol in HDL [Mass ratio] 2.5 {ratio} Normal <5.0 [facility] Comment on above: Order Comment: FASTI NG:NO FASTING: NO Performed By: #### 7 600, 20876 #### [facility] [address], [address] [place] [address] [employer] Supervisor: Heraclio Miller MD NON HDL CHOLESTEROL 104 mg/dL (calc) Normal <130 [facility] Comment on above: Order Comment: FASTI NG:NO FASTING: NO Result Comment: For patients with diabetes plus 1 major ASCVD risk factor, treating to a non-HDL-C goal of <100 mg/dL (LDL-C of <70 mg/dL) is considered a therapeutic option. Performed By: #### 7 600, 97840 #### [facility] [address] [facility], [address] [place] [address] [employer] Supervisor: Heraclio Miller MD Triglyceride [Mass/Vol] 68 mg/dL Normal <150 [facility] Comment on above: Order Comment: FASTI NG:NO FASTING: NO Performed By: #### 7 600, 09844 #### [facility] [address], [address] [place] [address] [employer] Supervisor: Heraclio Miller MD Coding Summaryon 01-09-2021 Coding Summary HTMLBase 64 CseqooxfTIu6fSj+PGhlYWQ +BB7PKCOfT83prAGduK6ZD1 rZGB8UFUEBCJDKQT9RPX7yk KJ0ONeyI5AypzZs SjmzjONiUU98ECc1CXS2kHl aEZybwS1ojIFbO0f2YdPxCA 63tY10TOvdZUWtKhR5PdWmp jsgbWFy Y9omLlPglAGaWtx+PHRhYmx lIHdpZHRoPScxMDAlJyBzdH noNI7pCj2mUIBzLSSmoBati HNlOiBj m3vkLEUePTrdXU6diYqjH1S gcSZ4CTZvm2q0Lr38yHH+PH IkCAN8kFnrKBnoy132WsAia 0joXLG2 mKFnAZclUHI2C30yv9L8XSW tPWJdPBI6cYV3zK9twGhggw pbE4QboVPfAeY5GOR8sNHwp W5ktAyw xtaaeP4uIpm+N19GCH7ELYD TOC9NAzj1R1GfUmndwHE+PC 58GOZfZY82jSTssXWsa4sgw Ew9DdMa SQTeCPE7fWrdWOcdg4WhIMS iV30qvEPnz7W5KGDxtBwwvT JhXdAgvOJ6vV5wDMcggociy 2hvdzsn Hifmo0mlph76nX08C26jDRl bXAInPZA9WSNvUJOhbPvhia 4ruA5pBa2+RQuzu2tzw5vby Fh7VeQj FHKxiiSaxUrkLDM9m1GfUv0 0V2UedFrvt7OiYka7og54nI Kli0S1qRF3YJzvZGWljX7xO WxlZnQ6 OGOtWqHepH61kDStIUuyVl3 cgVstlHmiUW4uMYNhbhupDV ZtaA6sFSAkuDJrdUnuCW0uJ TBpbjtm b422QnGhTCE5YJSvrOHbY7V pjI5kIyFoVIKmGHFaA1WuxW QsWHnqC797IAjqZzV8HGXvv hWuT8Qa DRZkySomUzQ7z5F7Wx1Yx3A ozwnuVAZ9FBqqICOkMiUaZv ZaDeL2V3UhCmz5LMAsqDpcO Q4oS6Tj OXLiatrgpkosrVN7HWUyZHC okN35qZGvRQfaWa0au6R6v7 18TLAiEJSewQ93Vi8oiFkdG TBwdCBU wZ0vparbz4qhuynqYcRdXVO oQCp6PPy8OJFswAnlFxXpPX L4LoX1WAL2mKJkwS2wfIfzf nfmzJ9n Oyc+H63xaB8jJJC0HII4ahj qYVKgcpVpUO86UL72C6MxNe wvdGFibGU+PGRpdiBzdHlsZ Z7hErTo g7uaf0KxULvhW8WrLUSiVJl sAwb9NVMkJJQ9sKW1sN6xZY ZfQXqpe4X9gJW7O7OrdmZxv k4sc3wt KKTaVKrjH84hgEYws0G4BZI yiZV7LZXwvCohYdAyrA59Sy c+KKBgcFipc7PjWjnog8cee 9wtbZp2 OhAqFSRogsVrlRgoTZV2p0R nUv21L68bMSapUMXgVQUeRI OzBXSkwCcnyr3vaZ3iZu0+P GNvbCB3 mOF0wC4xLVPwQhI9WSdaQ86 5HrIbiLGlUfojn7rif6wbiM j8XcHwPBRxtiAbpZzxGMX4z 4DrRy69 O18eUPawTGZgYWAmDBTtRTF asUaglc5ieW7iVh9+PC9jb2 gcwa08iY73gIG+YCAeNGF3g WxlPSdw OMKehU5yEVosPkU5ICZyRaV xnH53wTEiRPeiDm4xsQyyhR cqGR1gGDAbiukyw581QpJyy 2xkIDEw mVIdJSphEJM5M54to7S8EGH tTJOgCJW1oNZ9wJ5hnVkzzj ogbGVmdDsgdmVydGljYWwtY RsqC857 IHRvcDsnPlBhdGllbnQgTmF uOJf9T6VcApf4BSYblLxiIC 1pvCQgAHreOj0ejSnmnDpqK R8sKNLi wipyn055PkPil7bdFHOiiFE aGAsyNHC5R29nm3P1FCDjNZ HqTPZ1mXN4aQ2fnQuxiemfa GVmdDsg lhXwnPmeCFuaIDzvP259IHL pmRctAhKnguCnCPCkhNX3CZ 70SM14wIUnk2V9xHD6N7DcL GRpbmct dhvngST9RGAfCYRqfK85Po6 quAdyGf0nMXGsQJZ0UIKtlT HqF1TkzD6dSyWyHJMuWGXpB 3RleHQt MUhdT482EKypHpJ3CKLxujM iY7EmZNGzoSqnOtI1y4V7Nq 1AS1R2JO50VJ48wJFdu0I3g OR7K6Po PSLttcayastlvLT5HLMqXUV geV94Mw6taLpaBa6wOVQsSD M8QEEggZZdD1CmyE5rJuKnL DAwMDAw Q7KpuMKuRCmdR031WWotNqV 5DDOjktKrX0LxGDRcoRfpOf B4g2C0Uc6VKOd1CY12WB74j HZdj8D8 wRR4O2LgQUEgzeveuwhxsYN 4EBTqOHCrhI91Wd7nqQsmDi 6nFYKrSQU6KWJpdRGcF8Dgd F7aYnVh VFFyEJLdA3RqpYSkKTanN57 4JDgwQvH4WKDgxbOkL5WlNJ NfyFvaUpF5l5Z7Kv6VUOLxS N52AYZ5 uYJ2KE92DU53D5YzPnfwxDJ ibGU+PHRhYmxlIHdpZHRoPS oiWZBiMjQspQpxJY8iZv5kI GVyLWNv yGtlkDMaMpDso4hjYVWlRMk iGS1cxMsjY6VpuAK3RKInq9 u9Ss79R52oI8VizUT+PGNvb SU5nWU7 pM6xXbPwAuF6GTriH307VlX thDCgAtpxh6whv6wgkYi2Yj C0EPOdwwLfeIwyZDJ6k2FhR s78U74v IHdpZHRoPSIxNSUiIHZhbGl hzc8rvN9wAt6+ZPNkeLS5aJ C0qJ8dBkOjInQ8AOllJ270W nRvcCIv Ytfeo9fcm3jqlGa1BlUdNDZ tqfNdtIusMBH4p8YpOt03K9 UukCxxs5DxLrb6vu96wUQps 6V5yGK7 L0IcCQAmrkhnaCWmdCmuSE2 kSQKikmbfQJKkxC9tXIKbG2 w5BkFxTwQ8KSlbD1NpteR2A DEwcHQg FKsaKIW5X87om8H5HFCxCGJ hWKM9vNM8vC1bhRznzabtmZ VmdDsgdmVydGljYWwtYWxpZ 246IHRv eUzfPQYcgP1hPXLdeBIriBt eIL2qQRJztujcLulEZB5GUv wgRUxJWkFCRVRIIEFOTjwvd GQ+PHRk FTI0vRwsITvkSIIeeA9xLDL xJ8t6JcTqHfZ5IQzyD3GwZZ ObsgxiSo68tZ7yOiYzFhB1X JrmF0Zu kuS2EJQevMYpKYlnBQY6G70 uq9B5ODHtKKLaGEA8mDT8mA 1hbGlnbjogbGVmdDsgdmVyd GljYWwt WQmzZ858SBDbxUyaEgG1StG vEvR5MxU8J9VaArz8ZBEneE azWB6frAFcOZrpTo6kvPoeo KdhBX0e VUHxrizyIHWmjC9iMFMqvER orQnlMD3jQEBwnvyuf464Xz AaKFF6HKCfbSAaD1EncD5pR iAjMDAw GOBvP1ZafNGaNHtxN941WId fMxZ2AFNdmfMqI1YfZIAxlH fsTcV2p0A8Id86JDGTCIUll zwvdGQ+ OVAtZRA2pZayTVhpTSJnoR6 sSCAmP0m3YoSzVjC6TLlnX7 OxAMZxaqnkFb72yE2hXlGxZ mH6THvu G3OoyoW5SNUbnJOwLMdyUSX 3T24tj2D0WUMyPOHyJNA0zE A3fC0myVflqobqwJOztAgel mVydGlj TUrhCKabF808UIJxcMfkUzV FTUFMRTwvdGQ+AXXnCSE5pV ipBFjkZIDcxO0jFPQeG5u0D iAwLjA1 SNrkQ3YeJUBtposdHh86tO5 wAsMrMvR0MKyiT7VqyoY0JM TwhIMrIOwjYAV8J67vb8P7M CMwMDAw DSU3zBM6gS4omOlvdarrpOZ mdDsgdmVydGljYWwtYWxpZ2 79WBYesUasRk3AHM98QF51H 3RyPjwv dGFibGU+PHRhYmxlIHdpZHR uOUgzJIVsYbNgtWrrSE1vDx 9yZGVyLWNvbGxhcHNlOiBjb 2xsYXBz LFhwXU9naUfrN5ZtrMW4TXE xt5b8Qo02P71yW7QcfIS+PG XscRQ4jZI0cP9hJgGzLtP1F JoyC463 FxMdjOOpUnhrf4ciu0isvZb 6SoNuMZVbjfWpiNjlKSX3i0 ZpJx07G34xVGlgGESfZQGuX CUiIHZh oJjtzg4srC6nTx5+PGNvbCB 3pPW4nV0lWdApBqH9KEftP7 28QdQydRPaVcljE51vV2Zeq XA+PHRy Hko1AZPsxGzgZB8rmWJxURq nMh1sRWQ6JnFpTdNhBEdbJ5 SkTXXvaepwfkldhZP0LNXnA DUwaW47 Yo9wwXmgOi6wFJHqQAC2CIY eeMFoP0MjiP6eWsWzKMQaDX EoH3SftSKhHBajO840LSnaV bH7YEOr hbFiI8HhRUSdqGysKfJ3b8R 1Si1VuNggxTAhDB5qDsXcSF z0G8XbRkc9EYNlxXvwLS8dh GFkZGlu Of7mcIzleMpdZP1uUNZwytg jg970TcSvw4ywPUJtdKSkYN xrFBC0V82ki3M6VVPiBBWsF YP5yYH8 sC8ohEptyqpphRReyQuhnfJ vnWeqBAsaTLzyD539OGVylI xjLiAFYyi4K5VyGqp4XVOga EsiQX8g hZYtVDdiIk8maIfcwGkiKD3 cNOYtwwkfk743FgPxx3beOR QffZQiWHboUDH7I56yz1U0L CMwMDAw LWP5bDB5qY4ayZrfxrintXX mdDsgdmVydGljYWwtYWxpZ2 46PYCxyDlqXw2DDvn4I7ZkH dr7MAWl eOgpOM8gmDJtJOtvHr0qnIw epPgbXG9lRVBmdztfx685Ae Nqe2suEJAarFZdIEjdIBT8O 37ya7U7 SOMnXVKrOFB2cYQ2tK9laUy nbjogbGVmdDsgdmVydGljYW akYLbsW698NVGlxAmrNwKko WVyOjwv dGQ+TN45nb45V6YaUmxoYcq 4RJSxXAX4hWB0uH7cILGyJI dqv4V7yDS6B5FuryAgqy6sg 2xsYXBz ZTo (more content not included)... [facility] Consent Formson 01-08-2021 Consent Forms [id number] TGTIFF [facility] Progress Note - Nurseon Progress Note - Nurse PAT review for 01-21-2021 surgery reviewed per anesthesiologist, Dr. Gutierrez- no additional orders received. [Electronically Signed on: 01/07/2021 14:24 EST] Elvira Navarro RN [Verified on: 01/07/2021 14:24 EST] Elvira Navarro RN [facility] .Auto Diff 1on 01-04-2021 Auto Grant % 8 % Normal 03-13 [facility] Comment on above: Performed By: #### 1 [id number], [id number], [id number] ####[facility] (DEFAULT)[address] [place] [address] Baso Abs# 0.1 x10 Normal 0.0-0.2 [facility] Comment on above: Performed By: #### 1 [id number], [id number], [id number] ####[facility] (DEFAULT)[address] [place] [address] Basophils/100 WBC (Bld) 1.2 % Normal 0.2-2.0 [facility] Comment on above: Performed By: #### 1 [id number], [id number], [id number] ####[facility] (DEFAULT)[address] [place] [address] Eos Abs# 0.3 x10 Normal 0.0-0.4 [facility] Comment on above: Performed By: #### 1 [id number], [id number], [id number] ####[facility] (DEFAULT)[address] [place] [address]38 Eosinophils/100 WBC (Bld) 3.6 % Normal 0.9-4.0 [facility] Comment on above: Performed By: #### 1 [id number], [id number], [id number] ####[facility] (DEFAULT)[address] [place] [address] 050[address] Lymph Abs# 2.6 x10 Normal 1.3-2.9 [facility] Comment on above: Performed By: #### 1 [id number], [id number], [id number] ####[facility] (DEFAULT)[address] [place] [address] 91581 Lymphocytes/100 WBC (Bld) 34 % Normal 14-48 [facility] Comment on above: Performed By: #### 1 [id number], [id number], [id number] ####[facility] (DEFAULT)[address] [place] [address]30 Grant Abs# 0.6 x10 Normal 0.0-0.8 [facility] Comment on above: Performed By: #### 1 [id number], [id number], [id number] ####[facility] (DEFAULT)[address] [place] [address] 66846 Neut Abs# 3.9 x10 Normal 1.5-9.2 [facility] Comment on above: Performed By: #### 1 [id number], [id number], [id number] ####[facility] (DEFAULT)[address] [place] [address] 51400 Neutrophils/100 WBC (Bld) 53 % Normal 44-88 [facility] Comment on above: Performed By: #### 1 [id number], [id number], [id number] ####[facility] (DEFAULT)[address] [place] [address] [facility] Standardon 01-04-2021 eGFR Non AA >60 Invalid Interpretation Code [facility] Comment on above: Performed By: #### 1 [id number], [id number], [id number] ####[facility] (DEFAULT)[address] [place] [address] 52917 eGFR AA >60 Invalid Interpretation Code [facility] Comment on above: Result Comment: Generator Operator medina Kidney disease could be indicated at eGFRs of less than 60 ml/min/1.73m2. Kidney Failure is indicated at less than 15 ml/min/1.73m2 Performed By: #### 1 [id number], [id number], [id number] ####[facility] (DEFAULT)[address] [place] [address]345 Anion gap [Moles/Vol] 12.0 mmol/L Normal 5.0-19.0 [facility] Comment on above: Performed By: #### 1 [id number], [id number], [id number] ####[facility] (DEFAULT)[address] [place] [address]28 Calcium [Mass/Vol] 9.5 mg/dL Normal 8.9-10.3 [facility] Comment on above: Performed By: #### 1 [id number], [id number], [id number] ####[facility] (DEFAULT)[address] [place] [address] 03644 Chloride [Moles/Vol] 102 mmol/L Normal 101-111 [facility] Comment on above: Performed By: #### 1 [id number], [id number], [id number] ####[facility] (DEFAULT)[address] [place] [address] 19914 CO2 [Moles/Vol] 27 mmol/L Normal 21-32 [facility] Comment on above: Performed By: #### 1 [id number], [id number], [id number] ####[facility] (DEFAULT)[address] [place] [address] 41627 Creatinine [Mass/Vol] 0.77 mg/dL Normal 0.60-1.30 [facility] Comment on above: Performed By: #### 1 [id number], [id number], [id number] ####[facility] (DEFAULT)[address] [place] [address] 05846 Glucose [Mass/Vol] 88.0 mg/dL Normal 74.0-118.0 [facility] Comment on above: Performed By: #### 1 [id number], [id number], [id number] ####[facility] (DEFAULT)[address] [place] [address] 04749 Osmolality 275 mOsm/L Invalid Interpretation Code [facility] Comment on above: Performed By: #### 1 [id number], [id number], [id number] ####[facility] (DEFAULT)[address] [place] [address] 30996 Potassium [Moles/Vol] 3.4 mmol/L Low 3.6-5.1 [facility] Comment on above: Performed By: #### 1 [id number], 8183739, [id number] ####[facility] (DEFAULT)[address] [place] [address] 02909 Sodium [Moles/Vol] 138.0 mmol/L Normal 136.0-144.0 [facility] Comment on above: Performed By: #### 1 [id number], 2521548, [id number] ####[facility] (DEFAULT)[address] [place] [address] 16441 Urea nitrogen [Mass/Vol] 13 mg/dL Normal 8-26 [facility] Comment on above: Performed By: #### 1 [id number], 8990818, [id number] ####[facility] (DEFAULT)[address] [place] [address] 13144 Urea nitrogen/Creatinine [Mass ratio] 17.0 mg/mg High 4.6-16.2 [facility] Comment on above: Performed By: #### 1 [id number], [id number], [id number] ####[facility] (DEFAULT)[address] [place] [address] CBC w/ Auto Diffon 1 Erythrocyte distribution width (RBC) [Ratio] 13.7 % Normal 11.5-15.0 [facility] Comment on above: Performed By: #### 1 [id number], 6223360, [id number] ####[facility] (DEFAULT)[address] [place] [address] Hematocrit (Bld) [Volume fraction] 37.5 % Normal 33.7-40.4 [facility] Comment on above: Performed By: #### 1 [id number], 0196264, [id number] ####[facility] (DEFAULT)[address] [place] [address] 39931 Hemoglobin (Bld) [Mass/Vol] 11.7 g/dL Normal 11.3-15.9 [facility] Comment on above: Performed By: #### 1 [id number], 7256616, [id number] ####[facility] (DEFAULT)[address] [place] [address] Instr WBC 7.4 x10 Invalid Interpretation Code [facility] Comment on above: Performed By: #### 1 [id number], 6732602, [id number] ####[facility] (DEFAULT)[address] [place] [address] Man Diff? Auto Normal [facility] Comment on above: Performed By: #### 1 [id number], [id number], [id number] ####[facility] (DEFAULT)[address] [place] [address] 08745 MCH (RBC) [Entitic mass] 26 pg Normal 24-34 [facility] Comment on above: Performed By: #### 1 [id number], [id number], [id number] ####[facility] (DEFAULT)[address] [place] [address] 03600 MCHC (RBC) [Mass/Vol] 31 g/dL Normal 26-37 [facility] Comment on above: Performed By: #### 1 [id number], 7841443, [id number] ####[facility] (DEFAULT)[address] [place] [address] MCV (RBC) [Entitic vol] 84 fL Normal 81-100 [facility] Comment on above: Performed By: #### 1 [id number], 1036704, [id number] ####[facility] (DEFAULT)[address] [place] [address] Platelet 393 x10 Normal 138-427 [facility] Comment on above: Performed By: #### 1 [id number], 7851731, [id number] ####[facility] (DEFAULT)[address] [place] [address] Platelet mean volume (Bld) [Entitic vol] 9.7 fL Normal 6.3-10.2 [facility] Comment on above: Performed By: #### 1 [id number], [id number], [id number] ####[facility] (DEFAULT)[address] [place] [address] RBC 4.48 x10 Normal 3.70-5.30 [facility] Comment on above: Performed By: #### 1 [id number], 4102916, [id number] ####[facility] (DEFAULT)[address] [place] [address] WBC 7.4 x10 Normal 3.5-10.5 [facility] Comment on above: Performed By: #### 1 [id number], 8209500, [id number] ####[facility] (DEFAULT)[address] [place] [address] CULTURE, URINE, ROUTINEon CULTURE, URINE, ROUTINE SEE NOTE Abnormal [facility] Comment on above: Result Comment: CULTURE, URINE, ROUTINE Micro Number: [id number] Test Status: Final Specimen Source: Not given [...] loracarbef. Performed By: #### 3 [id number] #### [facility] [address], [address] [place] [address] [employer] Supervisor: Heraclio Miller MD Vital Signs Date Time Vital Sign Value Performing Clinician Facility 04-10-2023 15:17-0500 Blood Pressure Location Jackson BRENNON [facility] 04-10-2023 15:17-0500 Diastolic blood pressure 80 mm[Hg] Jackson WILLETT [facility] 04-10-2023 15:17-0500 Heart rate 72 /min Jackson WILLETT [facility] 04-10-2023 15:17-0500 Respiratory rate 16 /min Jackson WILLETT [facility] 04-10-2023 15:17-0500 Systolic blood pressure 116 mm[Hg] Jackson WILLETT [facility] 04-02-2023 11:41-0500 Body mass index (BMI) [Ratio] 30.68 kg/m2 [facility] Jay DO Work Phone: [facility] 04-02-2023 11:41-0500 Body weight 99.79 kg Evan Jay DO Work Phone: [facility] 04-02-2023 11:41-0500 Diastolic blood pressure 72 mm[Hg] Evan Jay DO Work Phone: [facility] 04-02-2023 11:41-0500 Systolic blood pressure 124 mm[Hg] Evan Jay DO Work Phone: [facility] 09-29-2022 14:29-0400 Body height 180.34 cm Randy G Furlong Work Phone: [facility] DO Work Phone: 09-29-2022 14:29-0400 Body mass index (BMI) [Ratio] 31.52 kg/m2 Randy G Furlong Work Phone: [facility] DO Work Phone: 09-29-2022 14:29-0400 Body surface area Derived from formula 2.22 m2 Randy G Furlong Work Phone: [facility] DO Work Phone: 09-29-2022 14:29-0400 Body weight 102.51 kg Randy G Furlong Work Phone: [facility] DO Work Phone: 09-29-2022 14:29-0400 Diastolic blood pressure 88 mm[Hg] Randy G Furlong Work Phone: [facility] DO Work Phone: 09-29-2022 14:29-0400 Heart rate 76 /min Randy G Furlong Work Phone: [facility] DO Work Phone: 09-29-2022 14:29-0400 Systolic blood pressure 138 mm[Hg] Randy G Furlong Work Phone: [facility] DO Work Phone: 09-12-2022 14:56-0400 Body height 180.34 cm Randy G Furlong Work Phone: [facility] DO Work Phone: 09-12-2022 14:56-0400 Body mass index (BMI) [Ratio] 30.96 kg/m2 Randy G Furlong Work Phone: [facility] DO Work Phone: 09-12-2022 14:56-0400 Body surface area Derived from formula 2.2 m2 Randy G Furlong Work Phone: [facility] DO Work Phone: 09-12-2022 14:56-0400 Body weight 100.7 kg Randy G Furlong Work Phone: [facility] DO Work Phone: 09-12-2022 14:56-0400 Diastolic blood pressure 88 mm[Hg] Randy G Furlong Work Phone: [facility] DO Work Phone: 09-12-2022 14:56-0400 Heart rate 78 /min Randy G Furlong Work Phone: [facility] DO Work Phone: 09-12-2022 14:56-0400 Systolic blood pressure 132 mm[Hg] Randy G Furlong Work Phone: [facility] DO Work Phone: 08-22-2022 09:47-0400 Diastolic blood pressure 100 mm[Hg] Randy G Furlong Work Phone: [facility] DO Work Phone: 08-22-2022 09:47-0400 Systolic blood pressure 142 mm[Hg] Randy G Furlong Work Phone: [facility] DO Work Phone: 08-22-2022 09:46-0400 Body height 180.34 cm Randy G Furlong Work Phone: [facility] DO Work Phone: 08-22-2022 09:46-0400 Body mass index (BMI) [Ratio] 30.68 kg/m2 Randy G Furlong Work Phone: [facility] DO Work Phone: 08-22-2022 09:46-0400 Body surface area Derived from formula 2.2 m2 Randy G Furlong Work Phone: [facility] DO Work Phone: 08-22-2022 09:46-0400 Body weight 99.79 kg Randy G Furlong Work Phone: [facility] DO Work Phone: 08-22-2022 09:46-0400 Diastolic blood pressure 102 mm[Hg] Randy G Furlong Work Phone: [facility] DO Work Phone: 08-22-2022 09:46-0400 Heart rate 74 /min Randy G Furlong Work Phone: [facility] DO Work Phone: 08-22-2022 09:46-0400 Systolic blood pressure 148 mm[Hg] Randy G Furlong Work Phone: [facility] DO Work Phone: 07-21-2022 08:15-0400 Diastolic blood pressure 88 mm[Hg] Randy G Furlong Work Phone: [facility] DO Work Phone: 07-21-2022 08:15-0400 Systolic blood pressure 122 mm[Hg] Randy G Furlong Work Phone: [facility] DO Work Phone: 07-21-2022 08:14-0400 Body height 180.34 cm Randy G Furlong Work Phone: [facility] DO Work Phone: 07-21-2022 08:14-0400 Body mass index (BMI) [Ratio] 30.82 kg/m2 Randy G Furlong Work Phone: [facility] DO Work Phone: 07-21-2022 08:14-0400 Body surface area Derived from formula 2.2 m2 Randy G Furlong Work Phone: [facility] DO Work Phone: 07-21-2022 08:14-0400 Body weight 100.25 kg Randy G Furlong Work Phone: [facility] DO Work Phone: 07-21-2022 08:14-0400 Diastolic blood pressure 86 mm[Hg] Randy G Furlong Work Phone: [facility] 250 DO Work Phone: 07-21-2022 08:14-0400 Heart rate 59 /min Randy G Furlong Work Phone: [facility] 250 DO Work Phone: 07-21-2022 08:14-0400 Systolic blood pressure 132 mm[Hg] Randy Calle Work Phone: [facility] 250 DO Work Phone: 07-14-2022 14:02-0400 Body temperature 99.32 [degF] Reid Bauer [facility] 07-14-2022 14:02-0400 Diastolic blood pressure 86 mm[Hg] Reid Bauer [facility] 07-14-2022 14:02-0400 Heart rate 76 /min Reid Bauer [facility] 07-14-2022 14:02-0400 SaO2% (BldA) [Mass fraction] 98 % Reid Bauer [facility] 07-14-2022 14:02-0400 Systolic blood pressure 120 mm[Hg] Reid Bauer [facility] 11-11-2021 19:25-0400 Body height 180.34 cm Jesusita Gee Other [facility] Other 11-11-2021 19:25-0400 Body mass index (BMI) [Ratio] 28.59 kg/m2 Jesusita Gee Other [facility] Other 11-11-2021 19:25-0400 Body temperature 98.1 [degF] Jesusita Gee Other [facility] Other 11-11-2021 19:25-0400 Body weight 92.99 kg Jesusita Gee Other [facility] Other 11-11-2021 19:25-0400 Respiratory rate 18 /min Jesusita Gee Other [facility] Other 11-11-2021 19:25-0400 SaO2% (BldA) [Mass fraction] 96 % Jesusita Gee Other [facility] Other Encounters Encounter Date Encounter Type Care Provider Facility Start: 04-14-2023 End: 04-14-2023 ambulatory [facility] Start: 04-10-2023 End: 04-11-2023 ambulatory Jackson WILLETT Facility: [facility] Start: 04-10-2023 End: 04-10-2023 Patient encounter procedure Jackson WILLETT General Surgery Nill/Said [facility] Start: 04-10-2023 ambulatory AMY HANNA [facility] Start: 04-06-2023 End: 04-07-2023 ambulatory Parkerjanelle Amandaradha Facility[facility] Start: 04-06-2023 End: 04-06-2023 Patient encounter procedure Stughazala Bear [facility] Start: 04-02-2023 End: 04-02-2023 ambulatory EVAN JAY Not Available Start: 04-02-2023 End: 04-02-2023 Office outpatient visit 15 minutes Evan Jay DO Work Phone: [facility] Comment on above: Mammogram abnormal; Invasive ductal carcinoma of breast, right ([facility]/HCC) Start: 03-26-2023 End: 03-26-2023 ambulatory Amy Jacques Facility:[facility] Start: 03-26-2023 End: 03-26-2023 ambulatory DO Randy Calle Work Phone: [facility] Work Phone: Start: 03-26-2023 End: 03-26-2023 Departed Referred DO Randy Normanlong Work Phone: [facility] [place] [facility] Start: 03-20-2023 End: 03-21-2023 ambulatory BRITTANI MICHAEL Facility:[facility] Start: 03-20-2023 End: 03-20-2023 Patient encounter procedure BRITTANI MICHAEL [facility] Start: 10-15-2022 Chart Update Randy Cantu ng Work Phone: [facility] DO Work Phone: Start: 10-14-2022 [id number] Start: 09-29-2022 Patient encounter procedure Randy Calle Work Phone: [facility] DO Work Phone: Start: 09-29-2022 ambulatory Ms. Brittani Michael Facility: Start: 09-12-[address] Christopher Harrison II Facility: Start: 09-12-2022 Office outpatient visit 5 minutes Randy Cantung Work Phone: [facility] 250 DO Work Phone: Start: 08-22-[address] Christopher Harrison II Facility: Start: 08-22-2022 Office outpatient visit 5 minutes Randy Cantung Work Phone: [facility] 250 DO Work Phone: Start: 08-18-2022 Chart Update Randy Cantu ng Work Phone: [facility] 250 DO Work Phone: Start: 08-15-2022 End: 08-16-2022 ambulatory Christopher Harrison Facility:[facility] Start: 08-15-2022 End: 08-15-2022 Patient encounter procedure Christopher Harrison [facility] Start: 07-21-[address] Christopher Harrison II Facility: Start: 07-14-2022 End: 07-15-2022 ambulatory Reid [facility] Start: 07-14-2022 End: 07-14-2022 Patient encounter procedure Reid Bauer [facility] Start: 12-27-2021 End: 12-27-[address] DAYANA BASHIR Facility:[facility] Start: 12-13-2021 End: 12-14-[address] KAYE JARQUIN Facility:[facility] Start: 11-22-2021 End: 11-22-2021 ambulatory [facility] Facility:[facility] Start: 11-11-2021 End: 11-11-2021 ambulatory Jesusita Gee Other [place] [id number] Other Start: 11-11-2021 Office outpatient visit 15 minutes Jesusita Gee [facility] Start: 08-26-2021 End: 08-28-2021 ambulatory [facility] Facility:[facility] Start: 08-22-2021 End: 08-22-2021 ambulatory [facility] Facility:[facility] Start: 08-13-2021 End: 08-13-2021 ambulatory [facility] Facility:[facility] Start: 01-21-2021 End: 01-21-2021 ambulatory [facility] Facility:[facility] Start: 01-04-2021 End: 01-05-2021 ambulatory [facility] Facility: [facility] Procedures Date Procedure Procedure Detail Performing Clinician Start: 12-27-2021 Mammography Evan adrian DO Work Phone: Start: 03-02-2005 Hysterectomy Reid mcfarland Abdominal hysterectomy Moured Clarke Biopsy of breast Jackson Thomas Chondrectomy of semilunar cartilage of knee Moghazala Bear Core needle biopsy o f breast using ultrasound guidance Moghazala Bear Excisional biopsy of breast Randy Calle Work Phone: Hysterectomy Randy jaramillo Work Phone: Lipoma of back (disorder) Reid Bauer Repair of anterior cruciate ligament of knee joint Moghazala Bear Tonsillectomy Moghazala Watson lssi Transurethral cystoscopy Haydee shauna Bear NEGATED: Highlighted row has not occurred! Total colonoscopy Randy Calle Work Phone: Plan of Treatment Date Care Activity Detail Author Start: 06-06-2024 Screening for malign ant neoplasm of colon [facility] Start: 06-01-2023 End: 06-01-2023 Patient encounter procedure 06/01/2023 1:30 PM EDT Office Visit [facility] [address] [place] [address] Evan Thompson, DO [address] [place] [address] [facility] Start: 04-08-2023 FUV, Provider: Christopher Harrison, Status: Pen, Time: 2:50 PM FUV, Provider: Christopher Harrison, Status: Pen, Time: 2:50 PM -[facility] 250 DO Work Phone: Start: 12-27-2022 Screening for malign ant neoplasm of breast Mammogram [facility] Start: 10-31-2022 Influenza vaccination Influenza Vacc ine (#1) [facility] Start: 09-29-2022 FUV, Provider: Brittani Avalos, Status: Pen, Time: 2:30 PM FUV, Provider: Brittani Avalos, Status: Pen, Time: 2:30 PM [facility] 250 DO Work Phone: Start: 09-18-2022 FUV, Provider: Christopher Harrison, Status: Pen, Time: 9:10 AM FUV, Provider: Christopher Harrison, Status: Pen, Time: 9:10 AM [facility] 250 DO Work Phone: Start: 09-12-2022 BPCHEJENN, Provider: Galo MURGUIA CUTTING [employer] CREASING PRESS OPERATOR 1,[id number], Status: Pen, Time: 9:00 AM BPCHECK, Provider: ASHLEIGH MURGUIA [employer]TING [employer]ING PRESS OPERATOR 1,[id number], Status: Pen, Time: 9:00 AM [facility] DO Work Phone: Start: 08-22-2022 BPCHECK, Provider: Galo MURGUIA C[employer]TING [employer] CREASING PRESS OPERATOR 1,[id number], Status: Pen, Time: 9:00 AM BPCHE, Provider: ASHLEIGH MURGUIA [employer]TING [employer] CREASING PRESS OPERATOR 1,[id number], Status: Pen, Time: 9:00 AM [facility] 250 DO Work Phone: Start: 2000 Screening for malign ant neoplasm of cervix [facility] Start: 10-11-1991 Screening for malign ant neoplasm of cervix Pap Smear [facility] Start: 1970 Screening for malign ant neoplasm of colon [facility] Immunizations Immunization Date Immunization Notes Care Provider Brandi box 12-06-2020 SARS-CoV-2 (COVID-19 ) mRNA BNT-162b2 cyn Bauer [facility] Comment on above: Result Comment: 2022: TPV50 11-15-2020 SARS-CoV-2 (COVID-19 ) mRNA BNT-162b2 cyn Bauer [facility] Comment on above: Result Comment: 2022: TPV50 11-20-2019 influenza virus vaccine, unspecified formulation Reid Bauer [facility] [place] 11-14-2019 influenza virus vaccine, unspecified formulation Reid Bauer [facility] 11-14-2019 influenza, seasonal, injectable Randy G Furlong Work Phone: [facility] 250 DO Work Phone: 12-13-2018 influenza virus vaccine, unspecified formulation Reid Bauer [facility] 12-13-2018 influenza, seasonal, injectable Randy G Furlong Work Phone: [facility] 250 DO Work Phone: 12-10-2017 influenza virus vaccine, unspecified formulation Reid Bauer [facility] 12-10-2017 influenza, injectable, quadrivalent, contains preservative Randy G Furlong Work Phone: [facility] 250 DO Work Phone: 07-07-2017 tetanus toxoid, reduced diphtheria toxoid, and acellular pertussis vaccine, adsorbed Reid Bauer [facility] 01-19-2017 influenza virus vaccine, unspecified formulation Reid Coatspsey [facility] 01-19-2017 influenza, injectable, quadrivalent, contains preservative Randy G Furlong Work Phone: [facility] 250 DO Work Phone: 01-07-2016 influenza virus vaccine, unspecified formulation Reid Coatspsey [facility] 01-07-2016 influenza, injectable, quadrivalent, contains preservative Randy G Furlong Work Phone: [place] [address] DO Work Phone: 12-01-2015 influenza virus vaccine, unspecified formulation Randy G Furlong Work Phone: [place] [address] DO Work Phone: 12-01-2015 influenza, unspecified formulation Reid Bauer [facility] 12-27-2014 influenza virus vaccine, unspecified formulation Reid Coatspsey [facility] 12-27-2014 influenza, injectable, quadrivalent, contains preservative Randy G Furlong Work Phone: [place] [address] DO Work Phone: 01-05-2014 influenza virus vaccine, unspecified formulation Reid Coatspsey [facility] 01-05-2014 influenza, injectable, quadrivalent, contains preservative Randy G Furlong Work Phone: [place] [address] DO Work Phone: 12-29-2012 influenza virus vaccine, unspecified formulation Reid Coatspsey [facility] 12-29-2012 influenza, seasonal, injectable Randy G Furlong Work Phone: [place] [address] DO Work Phone: 01-17-2009 novel [id number], preservative-free, injectable Randy G Furlong Work Phone: [place] [address] DO Work Phone: NEGATED: Highlighted row has not occurred!04-10-2023 influenza virus vaccine, unspecified formulation Jackson BRENNON [facility] [place] Payers Date Payer Category Payer Self-pay [id number] 2023 Medicaid [id number] 2023 Medicaid MEDICAID [facility] [id number] 2023-Present [phone] [address] [place] [address] Medicaid [id number] 2016 Unknown [id number] 1970 Unknown [id number] 2.16.840.1.806138.3.579.2.7 18 1970 Unknown [id number] 2.16.840.1.675793.3.579.2.7 18 1970 Unknown [id number] 2.16.840.1.811118.3.579.2.7 18 1970 Unknown [id number] 2.16.840.1.499244.3.579.2.7 18 1970 Unknown [id number] 2.16.840.1.465242.3.579.2.7 18 1970 Unknown [id number] 2.16.840.1.076577.3.579.2.7 18 1970 Unknown [id number] 2.16.840.1.749861.3.579.2.7 18 1970 Unknown [id number] 2.16.840.1.869385.3.579.2.5 93 1970 Unknown [id number] 2.16.840.1.911031.3.579.2.5 93 1970 Unknown [id number] 2.16.840.1.689493.3.579.2.3 56 1970 Unknown [id number] 2.16.840.1.023120.3.579.2.3 56 1970 Unknown [id number] 2.16.840.1.438580.3.579.2.3 56 1970 Unknown [id number] 2.16.840.1.560944.3.579.2.3 56 1970 Unknown [id number] 2.16.840.1.018167.3.579.2.1 068 1970 Unknown [id number] 2.16.840.1.657093.3.579.2.1 259 1970 Unknown [id number] 2.16.840.1.580820.3.579.2.1 286 1970 Unknown [id number] 2.16.840.1.185218.3.579.2.1 286 1970 Unknown [id number] 2.16.840.1.832360.3.579.2.1 286 1970 Unknown [id number] 2.16.840.1.942483.3.579.2.1 286 1970 Unknown [id number] 2.16.840.1.850537.3.579.2.1 286 1970 Unknown [id number] 2.16.840.1.415530.3.579.2.1 286 1970 Unknown [id number] 2.16.840.1.390681.3.579.2.1 286 1970 Unknown [id number] 2.16.840.1.621751.3.579.2.7 27 1970 Unknown [id number] 2.16.840.1.360656.3.579.2.7 27 1970 Unknown [id number] 2.16.840.1.062048.3.579.2.7 27 1970 Unknown [id number] 2.16.840.1.796586.3.579.2.7 27 1970 Unknown [id number] 2.16.840.1.902797.3.579.2.7 27 1970 Unknown [id number] 2.16.840.1.386043.3.579.2.1 244 1959 Private Health Insurance [id number] 2.16.840.1.202915.19 Unknown Unknown [id number] Unknown [id number] 2.16.840.1.857174.3.579.2.5 31 Social History Date Type Detail Facility Unknown if ever smoked [facility] Other Start: 01-04-2023 Sex Assigned At F [facility] Start: 07-14-2022 End: 04-10-2023 Tobacco smoking status Never smoked tobacco (finding) [facility] Tobacco smoking status Never [facility] Start: 01-04-2023 Social alcohol use Social alcohol [facility] 250 DO Work Phone: Start: 1970 Sex Assigned At Female F [facility] Start: 04-02-2023 Alcohol intake Lifetime non-d mayra (finding) [facility] Start: 01-04-2023 Alcohol Comment Caffeine intak e: 1-2 cups per day [facility] Start: 1970 Sex Assigned At Not on file N S Healthcare Functional Status Date Assessment Result Facility 04-10-2023 Functional Status N/A [facility] jayla [place] 07-14-2022 Functional Status N/A [facility] Clinical Notes 01-18-2021 to 04-12-2023 Catie Walker LPN - 04/02/2023 11:30 AM EST Note Date & Type Note Facility 04-12-2023 Note Chief Complaint consultation for breast cancer/discuss port placement HPI Staff 52 year old male presents on consultation from Dr. Thompson for invasive ductal carcinoma right breast. Patient had consultation with Dr. Hope with planned start of chemotherapy 04/21; he request consultation for port placement. History of Present Illness 52 yo female with h/o htn, migraines, referred for port insertion due to right breast cancer, patient found to have 3 cm in lower inner quadrant with enlarged right axillary lymph node, tumor triple negative, seen by Oncology and to begin chemotherapy; breast MRI, PET scan and genetic testing pending; no previous port or central line; no clavicular fx or neck surgery; no XRT to chest wall. no asa or NSAID use; no tobacco use; fmhx unknown patient adopted. Review of Systems PHQ Score Initial Depression Screen Score: 0 SCORE ROS - Provider Constitutional: no fever, no sweats, no weight loss. Eyes: no glasses, no blurred vision, no visual loss. ENMT: no dentures, no hoarseness, no swallowing difficulties, no hearing loss, no ear infection(s), no nose bleeds. Cardiovascular: normal blood pressure, no chest pain, regular heartbeat, no heart murmur. Respiratory: no shortness of breath, no cough, no asthma, no wheezing. Gastrointestinal: no nausea, no vomiting, no diarrhea, no constipation, no blood in stool, no change in bowel habits, no abdominal pain, no hepatitis. Genitourinary: no kidney stones, no urine infection, no dysuria. Musculoskeletal: no pain, no weakness. Skin: no changing moles, no rash, no skin lumps. Neurologic: no seizures, no epilepsy, no headache. Psychiatric: no emotional or psychiatric problem. Heme/Lymph: no bleeding problems, no anemia, no blood clots, no transfusions. Allergy/Immunologic: no swollen lymph nodes/glands, no IV drug abuse. Other: Additional ROS info: Except as noted in the above Review of Systems and in the History of Present Illness, all other systems have been reviewed and are negative or noncontributory. Physical Exam Vitals & Measurements HR: 72(Peripheral) RR: 16 BP: 116/80 HT: 71 in HT: 180 cm WT: 100.4 kg WT: 220.88 lb BMI: 30.99 HEENT: normal conjunctiva, sclera clear, no scleral icterus, EOM intact, PERRLA, oral mucosa moist without lesions. Neck: trachea midline, no mass, symmetric, no thyromegaly or nodules, no adenopathy Respiratory: lungs CTA, respirations non labored. Cardiovascular: regular rate and rhythm, no murmur, no pedal edema or varicosities. Gastrointestinal: soft, non distended, no tenderness, no masses, no palpable hernias, diastasis recti no, no hepatosplenomegaly; normal bs Lymphatic: no cervical adenopathy, no supraclavicular adenopathy. Musculoskeletal: normal gait, digits and nails without infection, nodes, cyanosis, clubbing. Skin: no rashes, no lesions, no ulcers, no subcutaneous nodules, induration. Psychiatric/Neuro: oriented to time, place, person, judgement normal, affect appropriate for age, insight intact, no focal deficits. Tests: labs reviewed, x-rays reviewed, review of old records completed , Discussed surgical options, risks, and possible complications with patient. Assessment/Plan 1. Breast cancer of lower-inner quadrant of right female breast (C50.311: Malignant neoplasm of lower-inner quadrant of right female breast) plan left [id number] insertion under anesthesia, informed consent obtained. Ancef 2 gms IV prior to OR SCDs Follow-up No qualifying data available Problem List/Past Medical History Ongoing BMI 30.0-30.9,adult Breast cancer of lower-inner quadrant of right female breast Dysrhythmia, cardiac Epidermal cyst Hypertensive disorder Migraines Obesity Historical Cardiac dysrhythmia Excision of lipoma Procedure/Surgical History Abdominal hysterectomy, Biopsy of breast, Biopsy of breast, Core needle biopsy of breast using ultrasound (US) guidance, Cystoscopy, Lipoma of back, Meniscectomy, Repair of anterior cruciate ligament of knee joint, Tonsillectomy. Medications chlorthalidone cyclobenzaprine lisinopril 20 mg Tab, 20 mg= 1 tab(s), Oral, Daily metoprolol spironolactone traZODONE 50 mg Tab, Oral, BID Allergies Demerol (Rash) Social History Alcohol - Denies Alcohol Use, 03/30/2020 Substance Abuse - Denies Substance Abuse, 03/30/2020 Tobacco Never (less than 100 in lifetime) Tobacco Use:. Never Smokeless Tobacco Use:., 04/10/2023 Family History Patient was adopted Immunizations Vaccine Date Status Comments influenza virus vaccine, inactivated - Not Given Patient Refuses SARS-CoV-2 (COVID-19) mRNA BNT-162b2 vax 12/06/2020 Recorded 2022-07-14: TPV50 SARS-CoV-2 (COVID-19) mRNA BNT-162b2 vax 11/15/2020 Recorded 2022-07-14: TPV50 influenza virus vaccine, inactivated 11/20/2019 Recorded influenza virus vaccine, inactivated 11/14/2019 Recorded influenza virus vaccine, inactivated 12/13/2018 Recorded influenza virus vaccine, inactivate (more content not included)... [facility] Comment on above: Result Comment: Elec tronically Signed By: BRENNON JAMESON, Jackson Mays\Date and Time Signed: 04/12/23 19:14 EST 04-02-2023 History of Present illness Narrative Reason for Appointment: Patient ID: Yasmin Jones is a 52 y.o. female who presents for abnormal test results (Discuss the results of her abnormal mammogram results done @ [facility]) Patient presents today for Consult appointment. Current Medications: has a current medication list which includes the following prescription(s): carvedilol, chlorthalidone, lisinopril-hydrochlorothiazide, spironolactone, trazodone, cyclobenzaprine, fluticasone, hydrochlorothiazide, lisinopril-hydrochlorothiazide, metoprolol succinate xl, and potassium chloride cr. Medical History: Active Ambulatory Problems Diagnosis Date Noted No Active Ambulatory Problems Resolved Ambulatory Problems Diagnosis Date Noted No Resolved Ambulatory Problems Past Medical History: Diagnosis Date Cardiac dysrhythmia HTN (hypertension) (CMS/HCC) Hypokalemia Migraine headache (CMS/HCC) Family History Adopted: Yes Problem Relation Name Age of Onset Heart disease Father Social History Tobacco Use Smoking status: Never Smokeless tobacco: Not on file Substance Use Topics Alcohol use: Never Comment: Caffeine intake: 1-2 cups per day Drug use: Never Past Surgical History: Procedure Laterality Date ANTERIOR CRUCIATE LIGAMENT REPAIR Right 2006 Reny BREAST BIOPSY Right CYSTOSCOPY 2019 KNEE ARTHROSCOPY W/ MENISCECTOMY Right 01/21/2021 Partial lateral- Dr. Oglesby KNEE ARTHROSCOPY W/ PARTIAL MEDIAL MENISCECTOMY Left 08/26/2021 Dr. Oglesby LIPOMA RESECTION 2015 upper back TONSILLECTOMY TOTAL ABDOMINAL HYSTERECTOMY 2006 Allergies Allergen Reactions Meperidine Swelling and Unknown Meperidine Hcl Unknown Wound Dressing Adhesive Unknown Review of Systems: Review of Systems All other systems reviewed and are negative. Objective Physical Exam Constitutional: Appearance: Normal appearance. She is well-developed. Cardiovascular: Rate and Rhythm: Normal rate and regular rhythm. Pulmonary: Effort: Pulmonary effort is normal. Breath sounds: Normal breath sounds. Abdominal: General: Bowel sounds are normal. There is no distension. Palpations: Abdomen is soft. Tenderness: There is no abdominal tenderness. There is no guarding or rebound. Musculoskeletal: General: No swelling. Normal range of motion. Right lower leg: No edema. Left lower leg: No edema. Neurological: Mental Status: She is alert and oriented to person, place, and time. Skin: General: Skin is warm and dry. Psychiatric: Mood and Affect: Mood normal. Behavior: Behavior normal. Vitals and nursing note reviewed. Exam conducted with a feeder catcher present. Vitals: Estimated body mass index is 30.68 kg/m as calculated from the following: Height as of 12/27/21: 5' 11 . Weight as of this encounter: 220 lb. BP: 124/72 No LMP recorded. Patient has had a hysterectomy. Assessment/Plan Encounter Diagnosis Name Primary? Mammogram abnormal Patient and support person presented to office for follow up abnormal mammogram and breast biopsy that was ordered by PCP. Patient had diagnostic right breast mammogram done at [facility] on 03/20/23. Results were highly suggestive of malignancy and radiology recommended that patient obtain an ultrasound guided breast biopsy. Patient had ultrasound guided right breast biopsy obtained at [facility] on 03/26/23, biopsy was sent to pathology at [facility]. Reviewed results with patient and discussed plan of care. Patient to have referral to Oncology Dr. Hope and General Surgery Dr. Willett. PVU and will reach out to office with any concerns/questions. Patient to return to clinic in 8-10 weeks for Annual appointment. Documented by Catie Walker LPN on behalf of: Evan Thompson DO *Patient MyChart has not been completed, patient will be mailed letter with referral information.* 2:17pm Called patient and left detailed message that referrals were completed, but patients MyChart was still pending and notified patient that letter will be sent via [employer]PS and if patient does not hear from medical authorization specialist by the time she receives letter to contact Specialist to schedule. Advised patient on to call office with any questions. --Catie Johnson LPN documented in this encounter [facility] 07-14-2022 Hospital Discharge instructions Patient Education 07/14/2022 14:20:40 BMI for [...] numbers. This can be done either in [place] ([place] or metric measurements. Note that charts and online BMI calculators are available to help you find your BMI quickly and easily without having to do these calculations yourself. To calculate your BMI in [place] ([place] measurements: 1.Measure your weight in pounds [...] Centers for Disease Control and Prevention: www.cdc.gov [place] Heart Association: www.heart.org National Heart, Lung, and Blood [place]: www.nhlbi.nih.gov Summary Body mass index (BMI) is a number that is calculated from a person's weight and height. BMI may help estimate how much of a person's weight is composed of fat. BMI can help identify those who may be at higher risk for certain medical problems. BMI can be measured using [place] measurements or metric measurements. BMI charts are used to identify whether you are underweight, normal weight, overweight, or obese. This information is not intended to replace advice given to you by your health care provider. Make sure you discuss any questions you have with your health care provider. Document Revised: 11/09/2019 Document Reviewed: 09/16/2019 [facility] Patient Education 2022 [employer]. 07/14/2022 14:20:38 Upper Respiratory Infection, Adult Upper [...] medicines to help relieve symptoms, such as: Zbyj-ogw-dxgervh cold medicines. Cough suppressants. Coughing is a [...] and other clear broths. General instructions Take dkez-oti-xgdaodm and prescription medicines only as told by [...] and water are not available, use hand lead cargoman. Avoid touching your mouth, face, eyes, or [...] provider. Document Revised: 09/18/2021 Document Reviewed: 09/18/2021 [employer] Patient Education 2022 [employer]. Follow Up Care 07/14/2022 13:35:56 With:BRENNON JAMESON, BOBBY Sifuentes Address:Unknown When: Unknown [facility] 11-12-2021 History general N arrative - Reported Type Medical History heart dysrythmia Medical History Night sweats Medical History Insomnia, unspecified type Medical History hypertension Surgical History hysterectomy dec 2003 Surgical History acl reconstruction right knee n ov 2004 Surgical History leg dec 2014 Hospitalization History see above [facility] Other [id number] Evaluation note* Encounter Date Diagnosis Assessment Notes [...] weeks for the cough to go away [facility] 06-28-2022 Note [id number]#1.00[facility]06-28-2022 [id number]#1.00[facility] 08-26-2021 [facility] SURGERY Clinical Discharge Summary PERSON INFORMATION Name YASMIN JONES Age 50 Years 1970 Sex FEMALE Language [place] Islander PCP RANDY CALLE Marital Status Med Service Ambulatory Surgery Acct# Arrival 08/26/2021 11:01:00 Visit Reason SURGERY- LEFT KNEE SCOPE Acuity LOS 003 04:51 Address: Cris [facility] [address] Comment: PROVIDER INFORMATION VITALS INFORMATION Vital Sign Triage Latest Temp Oral Temp Temporal Temp Intravascular Temp Axillary Temp Rectal 02 Sat 100 % 97 % Respiratory Rate Peripheral Pulse Rate Apical Heart Rate Blood Pressure / 90 mmHg / 103 mmHg Comment: MEDICAL INFORMATION Allergy Info: Adhesive Bandage; Demerol Prescriptions Given: acetaminophen-hydrocodone (!-De Berry 5 mg-325 mg oral tablet) 1 tab(s) [...] Oral every day. potassium chloride (Potassium Chloride (Mht-Bjpu-Rtd 10) 10 mEq oral tablet, extended release) 1 tab(s) Oral every day. traZODone (traZODone 50 mg oral tablet) 1 tab(s) Oral once a day (at bedtime). Medication List: Medications to Continue That Have Not Changed Other Medications acetaminophen-hydrocodone (!-De Berry 5 mg-325 mg oral tablet) 1 tab(s) Oral Every 6 hours as needed as needed for pain. carvedilol (carvedilol 12.5 mg oral tablet) 1 tab(s) Oral 2 times a day. cyclobenzaprine (cyclobenzaprine 10 mg oral tablet) 1 tab(s) Oral At bedtime as needed for spasm. hydroCHLOROthiazide (hydroCHLOROthiazide 25 mg oral tablet) 1 tab(s) Oral every day. potassium chloride (Potassium Chloride (Yho-Rhnk-Vyv 10) 10 mEq oral tablet, extended release) 1 tab(s) Oral every day. traZODone (traZODone 50 mg oral tablet) 1 tab(s) Oral once a day (at bedtime). Medications to Continue That Have Not Changed Other Medications acetaminophen-hydrocodone (!-De Berry 5 mg-325 mg oral tablet) 1 tab(s) Oral Every 6 hours as needed as needed for pain. carvedilol (carvedilol 12.5 mg oral tablet) 1 tab(s) Oral 2 times a day. cyclobenzaprine (cyclobenzaprine 10 mg oral tablet) 1 tab(s) Oral At bedtime as needed for spasm. hydroCHLOROthiazide (hydroCHLOROthiazide 25 mg oral tablet) 1 tab(s) Oral every day. potassium chloride (Potassium Chloride (Bsh-Hwjn-Jlb 10) 10 mEq oral tablet, extended release) 1 tab(s) Oral every day. traZODone (traZODone 50 mg oral tablet) 1 tab(s) Oral once a day (at bedtime). Medications to Continue That Have Not Changed Other Medications acetaminophen-hydrocodone (!-De Berry 5 mg-325 mg oral tablet) 1 tab(s) Oral Every 6 hours as needed as needed for pain. carvedilol (carvedilol 12.5 mg oral tablet) 1 tab(s) Oral 2 times a day. cyclobenzaprine (cyclobenzaprine 10 mg oral tablet) 1 tab(s) Oral At bedtime as needed for spasm. hydroCHLOROthiazide (hydroCHLOROthiazide 25 mg oral tablet) 1 tab(s) Oral every day. potassium chloride (Potassium Chloride (Uwi-Hhyv-Mnp 10) 10 mEq oral tablet, extended release) [...] INFORMATION PATIENT EDUCATION INFORMATION Instructions: Knee Arthroscopy ([facility]) Follow up: DIAGNOSIS Internal derangement of left knee Comment: PHYS DOC [facility]06-16-2022 [facility] SURGERY Clinical Discharge Summary PERSON INFORMATION Name YASMIN JONES Age 50 Years 1970 Sex FEMALE Language [place]er PCP RANDY CALLE Marital Status [facility] Service Ambulatory Surgery Acct# Arrival Visit Reason SURGERY - LEFT KNEE SCOPE Acuity LOS 010 03:19 Address: [address] [place] [id number] Comment: PROVIDER INFORMATION VITALS INFORMATION Vital Sign [...] Oral every day. potassium chloride (Potassium Chloride (Fiu-Nktt-Ety 10) 10 mEq oral tablet, extended release) 1 tab(s) Oral every day. traZODone (traZODone 50 mg oral tablet) 1 tab(s) Oral once a day (at bedtime). Medication List: Medications That Were Updated - Follow Below Instructions Other Medications Updated: potassium chloride (Potassium Chloride (Thz-Popl-Ujl 10) 10 mEq oral tablet, extended release) [...] Other Medications Updated: potassium chloride (Potassium Chloride (Niv-Bebk-Bmu 10) 10 mEq oral tablet, extended release) [...] Other Medications Updated: potassium chloride (Potassium Chloride (Jnt-Bdtd-Oli 10) 10 mEq oral tablet, extended release) [...] Instructions: Follow up: With: Address: When: MYESHA ALISSON [address] [place] [address], [facility] [place] [address] Business (1) 09/03/2021 9:15 AM With: Address: When: RANDY CALLE [facility] [place], [place] [id number] Business (1) Type Location Start [facility] Lab Collection (MAGR) LAB 08/21/2021 4:00 PM 08/21/2021 4:10 PM Confirmed Surgery (MAGR) [facility] Main OR 08/26/2021 1:00 PM 08/26/2021 1:30 PM Confirmed DIAGNOSIS Comment: PHYS DOC [facility]11-24-2021 Note [id number]#[facility] [id number]#1.00[facility] 01-21-2021 [facility] SURGERY Clinical Discharge Summary PERSON INFORMATION Name YASMIN JONES Age 50 Years 1970 Sex FEMALE Language [place] Islander PCP RANDY CALLE Marital Status Med Service Ambulatory Surgery Acct# Arrival 01/21/2021 06:05:01 Visit Reason SURGERY - RIGHT KNEE ARTHROSCOPY Acuity LOS 032 23:00 Address: Cris [facility] [address] Comment: PROVIDER INFORMATION VITALS INFORMATION Vital Sign [...] INFORMATION Instructions: Reny- Post Op Knee Arthroscopy ([facility]) Follow up: With: Address: When: MYESHA VINSON [address], [address] [place] [address] Business (1) 01/30/2021 11:00 AM With: Address: When: [place] [address] Business (1) DIAGNOSIS Internal derangement of right knee; Tear of meniscus of right knee Comment: AGUSTIN ROQUE [facility]11-19-2021 NoteSpoke to pt on phone regarding upcoming procedure. pt aware to be here at 6am, NPO after midnight, and need for ride after procedure. pt verbalizes understanding. [Electronically Signed on: 01/18/2021 11:03 EST] Jen Khoury RN [Verified on: 01/18/2021 11:03 EST] [facility]hour[facility] No data available for this section [facility] Evaluation + Plan note Future Appointments Appointment Date:04/10/2023 03:20:00 PM Scheduled Provider:Jackson WILLETT MD Location:[facility] Appointment Type:[address] note[address] assessment information available [facility] Work Phone: Evaluation note* Diagnosis Mammogram abnormal Abnormal mammogram, unspecified Invasive ductal carcinoma of breast, right (CMS/HCC) documented in this encounter [facility] N[facility]ative* The patient presents [...] medication regimen. She denies medication side effects. [facility] 250 DO Work Phone: Hospital Discharge instructions No data available for this section [facility] No data available for this section [facility] Summary Purpose Family History No [...] Status:Active Advance Directives No Advanced Directives Records Found Advance Directive Response Recorded Date/ Time Advance Directives No December 10, 2017 10:40am Chief Complaint * Patient in office for bp check due to hypertension/edema. Patient states edema has resolved. Tolerating the med changes well. Patient bp reviewed per r guillermor rn. * V.O per Dr. Christopher Harrison MD / R Guillermor RN increase chlorthalidone to 50mg daily and do BP check in 2 weeks. * Patient advised verbalized understanding rx sent * To Dr. Christopher Harrison MD * To Dr. Christopher Dominguez DO in suite * Patient in office for bp check due to hypertension/edema. Patient states edema has resolved. Tolerating the med changes well. Patient bp reviewed per r benny rn. * V.O per Dr. Christopher Harrison [...] Blood pressure f/u : 'doing fine' * YASMIN JONES is being seen for a 3 month follow-up of hypertension. Additional Source Comments INFORMATION SOURCE (unrecogn ized section and content) DATE CREATED AUTHOR 07/28/2021 [facility] dical Specialist DATE CREATED AUTHOR AUTHOR'S ORGANIZ ATION 09/22/2021 [facility] DATE CREATED AUTHOR AUTHOR'S ORGANIZ ATION 12/01/2021 [facility] DATE CREATED AUTHOR AUTHOR'S ORGANIZ ATION 01/04/2022 [facility] DATE CREATED AUTHOR AUTHOR'S ORGANIZ ATION 09/30/2022 [facility] ical Center DATE CREATED AUTHOR AUTHOR'S ORGANIZ ATION 10/01/2022 [facility] DATE CREATED AUTHOR AUTHOR'S ORGANIZ ATION 10/17/2022 [facility] DATE CREATED AUTHOR AUTHOR'S ORGANIZ ATION 04/04/2023 [facility] dical Specialists EPIC DATE CREATED AUTHOR AUTHOR'S ORGANIZ ATION 04/10/[address] [facility] DATE CREATED AUTHOR AUTHOR'S ORGANIZ ATION 04/13/2023 [facility] DATE CREATED AUTHOR AUTHOR'S ORGANIZ ATION 04/15/2023 [facility] DATE CREATED AUTHOR AUTHOR'S ORGANIZ ATION 04/16/20[facility] REASON FOR VISIT (unrecogniz ed section and content) Reason Comments abnormal test results Discuss the result s of her abnormal mammogram results done @ [facility] Patient Care team informatio n (unrecognized section and content) Team Status: Active Member Role Status Dates Randy Calle DO Primary Care Provider Active Team Status: Inactive Member Role Status Dates Randy Calle DO Primary Care Provider Active Start: March 26, 2023 End: March 26, 2023 GUY Khan MACHINIST HELPER-C Attending Provider Active Start: March 26, 2023 End: March 26, 2023 Biomedical Engineering Director Relationship Specialty Start Date End Date Randy Calle MD [address] [facility], [facility] [place] [address] PCP - General Family Medicine 04/02/23 Goals (unrecognized section and content) Goals may be documented in a n alternate section FOR RECORDS PERTAINING TO PATIENTS WHO ARE [...] BE BASED ON THE PRIMARY CLINICAL RECORDS. [facility] [employer] ([employer]) [facility]. provides no warranty or guarantee of the accuracy or completeness of information in this document.
== END 2023-04-17 14:55 | disposition home or self-care (01) ==
LOC: PETCT 14:54
PROVIDERS: PCP Nurse Practitioner Family; Visit Provider Internal Medicine Hematology & Oncology
DX: C50.911 Malignant neoplasm of unspecified site of right female breast (principal)
CPT/HCPCS: 78815; A9552

== ENCOUNTER 2023-04-24 13:49 | Outpatient (OUT) | payer MEDICAID, SELFPAY ==
--- NOTE | 2023-04-24 13:55 | US_ITS ---
[address] [address] Patient Name: IKE JONES MRN: [id number] date: 1970 Sex: F Assigned Patient Location: Current Patient Location: Accession/Order Number: [id number] Exam Date: 04/24/2023 14:07 Report Date: 04/25/2023 06:41 At the request of: AARTI NUNEZ Procedure: US pelvis transvaginal EXAMINATION: US pelvis transvaginal HISTORY: Nausea R11.2, Malignant Neoplasm OF Right Breast C50.811 COMPARISON: PET CT 04/17/2023 TECHNIQUE: Transabdominal and/or transvaginal sonographic examination was performed as indicated by examination type. FINDINGS: UTERUS: Hysterectomy. RIGHT OVARY: Not seen. No suspicious adnexal findings. LEFT OVARY: Contains a 3.9 x 2.4 x 2.6 cm heterogeneous hypoechoic structure which appears to have internal blood flow. Duplex Doppler demonstrates normal waveform and flow; resistive index 0.7. Ovary size: 4.6 x 2.7 x 3.6 cm CUL-DE-SAC: Unremarkable. No significant free fluid. BLADDER: Unremarkable. OTHER: None. US/US pelvis transvaginal IMPRESSION: 1. Abnormal 3.9 cm mass within left ovary which also demonstrates abnormal radiotracer uptake on the recent PET CT study, concerning for neoplasm. Electronically authenticated by: PRECIOUS MAYBERRY Date: 04/25/2023 06:41
--- OUTSIDE RECORDS SUMMARY | 2023-04-24 14:10 | XMS_ITS | CCD ---
Author Name Unknown Address [address] [place] [address] Organization [facility] Care Team Providers Care Ship Boss Name Role Phone Jesusita Gee Unavailable RANDY CALLE Primary Care Unavailable Reny, Hua Kraus Admitting Unavail able Hua Oglesby Attending Unavail able Reny, Hua Kraus Admitting Unavail able RANDY CALLE Primary Care Unavailable Reny, Hua Kraus Attending Unavail able RANDY CALLE Primary Care Unavailable Paco Giraldo Attending Unavailable RANDY CALLE Primary Care Unavailable Reny, Hua Kraus Admitting Unavail able RANDY CALLE Consulting Unavailable Welch, Hua Kraus Attending Unavail able Reny, Hua Kraus Admitting Unavail able RANDY CALLE Primary Care Unavailable Hiral Small Consulting Unavailable Reny, Hua Kraus Attending Unavail able RANDY CALLE Primary Care Unavailable Welch, Hua Kraus Admitting Unavail able Reny, Hua [...] Care Unavailable KRYSTEN, DR ANNE Consulting Unavailable SHUTESBURY, DR HIRAL Meza Consulting Unavailable MILKA, DR KAYE Reynoso Consulting Unavailable Jackson WILLETT Primary Care Physician RANDY CALLE Primary Care Physician Randy Calle Unavailable Unavailable Unavailable Christy WRIGHT, Dr. Christopher Gtz Attending Unavailable McGuinn II, Dr. Christopher Gtz Referring Unavailable Furlong, Dr. Randy Meier [facility] Care Unava ilable Shakeeluinn II, Dr. Christopher Gtz Attending Unavailable Sahkeeluinn II, Dr. Christopher Gtz Referring Unavailable Furlong, Dr. Randy Meier [facility] Care Unava ilable Shakeeluinn II, Dr. Christopher Gtz Attending Unavailable Shakeeluingalo II, Dr. Christopher Gtz Referring Unavailable Furlong, Dr. Randy Meier [facility] Care Unava ilable Alec, Ms. Brittani Rushing Attending Unaziggy taveras Michael, Ms. Brittani Rushing Referring Unavai lable Furlong, Dr. Randy Meier [facility] Care Unava ilable BRITTANI AVALOS Attending Unavailable BRITTANI AVALOS Referring Unavailable Furlong, Dr. Randy Meier [facility] Unava ilable Alva, DO Padilla Primary Care Provider Jacques, ARCH SUPPORT TECHNICIAN Amy Attending Provider EVAN THOMPSON Attending Unavailable Randy Calle MD Primary Care Provider Jacques, Amy Attending Unavailable Jacques, Amy Admitting Unavailable Randy Calle Primary Care Unavailable [...] Primary Care Unavailable Christopher Harrison Attending Unavailable Chrsitopher Harrison Admitting Unavailable Reid Bauer Attending Unavailable Jackson WILLETT Attending Unavailable Chantal Bear Admitting Unavailable Chantal Bear Attending Unavailable BRITTANI MICHAEL Attending Unavailable BRITTANI MICHAEL Admitting Unavailable CHRISTOPHER HARRISON Attending Unavailable RANDY CALLE Primary Care Unavailab CHRISTY Max Referring Unavailable AMY HANNA Primary Care Unavailable Allergies Allergy Classification Reported Allergen(s) Allergy Type Date of Onset Reaction(s) Facility (17 sources) Meperidine; Translations: [meperidine] Drug Allergy 9 anaphylaxis, Eruption of skin (disorder), Swelling, Unknown [facility] [place] (1 source) Adhesive bandage; Translations: [Adhesive Bandage] Propensity to adverse reactions (disorder) [facility] Repository (3 sources) Meperidine; Translations: [Demerol] Drug Allergy 3 [facility] Repository (4 sources) Adhesive agent; Translations: [ADHESIVE] Drug allergy (disorder) 5 [facility] Repository (2 sources) Meperidine Drug Allergy 3 Unknown [facility] (2 sources) Wound Dressing Adhesive Drug Allergy 3 Unknown [facility] (1 source) Meperidine Drug Allergy 2 [facility] Repository Medications Current Medications Medication Drug Class(es) Dates Sig (Normalized) Sig (Original) [id number] 200 actuat albuterol 0.09 mg/actuat metered dose [...] day(s), # 21 cap(s), Refills(s) 0, Pharmacy: [facility]/pharmacy #[id number], 180, cm, 07/14/22 14:05:00 EDT, [...] Corticosteroid Start: 04-06-2023 Flonase 0.05 m g/inh [place] 1 spray(s), Nasal, BID, Refill(s) 0 Start [...] Start: 08-18-2022 take 1 tablet by haydee th once daily Klor-Con M20 20 MEQ Oral Tablet Extended Release Take 1 tablet daily Quantity: 90 Refills: 3 Ordered: 18-Aug-2022 Christopher Harrison MD Start : 18-Aug-2022 Active take 4 tablets by mo [facility] once daily potassium chloride CR (Klor-Con) 10 MEQ ER tablet TAKE 4 TABLETS (40 MEQ) BY MOUTH ONCE DAILY FOR 2 DAYS. DO NOT CRUSH, CHEW, OR SPLIT. 0 Active Problems Active Problems Problem Classification Problem Date Documented Date Episodic/Chronic Cancer of breast (5 sources) Infiltrating duct carcinoma of breast; Translations: [Malignant neoplasm of unspecified site of right female breast] Onset: 04-10-2023 04-02-2023 Chronic Cardiac dysrhythmias (10 sources) Cardiac [...] for Procedure/Surger yon 04-14-2023 Consent for Procedure/Surgery [id number]#1.00T IFF Normal [facility] Ambulatory Visit Summaryon 0 04-10-2023 Ambulatory Visit Summary YASMIN JONES :1970 Visit Date:04/10/2023 Ambulatory Visit Instructions Your Care Team Attending Physician - Jackson WILLETT MD Primary Care Physician - RANDY CALLE DO [...] for choosing us for your care. Normal [facility] Consultation Noteon 04-10-19 24 Consultation Note [id number]#1.00T IFF Normal [facility] Lab Reportson 04-10-2023 Lab Reports [id number]#1.00T IFF Normal [facility] Surgical Pathologyon 024 Surgical Pathology Normal [facility] Comment on above: Result Comment: [facility] [address] [place] [address] Surgical Pathology Consultation Patient Name:YASMIN JONES ADOB:1970 (Age: 52)Gender:FTaken:4Reported:4Physician(s):Christy He MD ([phone])Copy To: Rec. #:[id number]: #[id number] Final Pathologic Diagnosis Right breast, 4:00 mass , core needle biopsy ([facility], [place], [place]; [id number], 03/26/2023): - INVASIVE MAMMARY CARCINOMA, DUCTAL TYPE with areas of necrosis. - Greatest length of invasive carcinoma: 11 mm - Histologic grade: Tanner histologic score: 8/9 - Glandular (acinar)/tubular differentiation: 3 - Nuclear pleomorphism: 3 - Mitotic rate: 2 - In-situ component: Not definitively identified. - Lymph-vascular invasion: Not definitively identified. - Microcalcifications: Present. COMMENT: E-cadherin immunostain is strongly and diffusely positive, supporting the above diagnosis of ductal carcinoma. Control is satisfactory. Breast biomarkers are performed and show ER: Positive (12-15% of nuclear staining, weak staining); WY: Negative; HER2: Negative (0% of cells with uniform intense complete membrane staining). Internal controls for the biomarkers are present and stain as expected. Intradepartmental consultation has been completed on this case by a second pathologist who concurs with the above diagnosis. Report Electronically Signed Out eak/04/21/2023Chayo Wu MD Interpretation performed [place] [address], License number: [id number]. Clinical History Invasive ductal carcinoma. Gross Description Received are 10 prepared slides and 1 block labeled [id number] from [facility], that are accompanied by the contributing pathologist???s report that bears this patient???s name and the accession number as it appears on the slides. EAK Specimen(s) Received Consult case from [facility], 10 slides and 1 block labeled [id number] Fee Codes(s): 1; 64086 Outside Mammographyon 2023 Outside Mammography [id number]#1.00T IFF Normal [facility] Pathology Noteon 04-07-2023 Pathology Note [id number]#1.00T IFF Normal [facility] RAD - Ultrasound Reporton RAD - Ultrasound Report [id number]#1.00T IFF Normal [facility] BMPon 04-06-2023 Anion gap [Moles/Vol] 10 mmol/L Normal 6-16 [facility] Comment on above: Performed By: #### 2 [id number], [id number] ####[facility] [address] [place] [address] BUN/Creat Ratio 18 No Units Normal 10-20 [facility] Comment on above: Performed By: #### 2 148229, [id number] ####[facility] [address] [place] [address] Calcium [Mass/Vol] 10.5 mg/dL Normal 8.9-11.1 [facility] Comment on above: Performed By: #### 2 356600, [id number] ####[facility] [address] [facility] [place] [address] Chloride [Moles/Vol] 101 mmol/L Normal 101-111 [facility] Comment on above: Performed By: #### 2 199714, [id number] ####[facility] [address] [facility] [place] [address] CO2 [Moles/Vol] 32 mmol/L High 21-31 [facility] Comment on above: Performed By: #### 2 265972, [id number] ####[facility] [address] [facility] [place] [address] Creatinine [Mass/Vol] 1.0 mg/dL Normal 0.5-1.3 [facility] Comment on above: Performed By: #### 2 734617, 15253838 ####[facility] [address] [facility] [place] [address] Glucose [Mass/Vol] 90 mg/dL Normal 55-199 [facility] Comment on above: Performed By: #### 2 358977, [id number] ####[facility] [address] [place] [address] Potassium [Moles/Vol] 3.4 mmol/L Low 3.5-5.3 [facility] Comment on above: Performed By: #### 2 619246, 05041604 ####[facility] [address] [place] [address] Sodium [Moles/Vol] 140 mmol/L Normal 135-145 [facility] Comment on above: Performed By: #### 2 041183, [id number] ####[facility] [address] [place] [address] Urea nitrogen [Mass/Vol] 18 mg/dL Normal 5-21 [facility] Comment on above: Performed By: #### 2 846781, 19202403 ####[facility] [address] [place] [address] CHEMISTRYOrdered By: SYSTEM SYSTEM on 04-06-2023 Anion [...] Chem Consent for Treatmenton Consent for Treatment [id number]#1.00T IFF Normal [facility] Physician Orderon 04-06-2023 Physician Order [id number]#1.00 TIFF Normal [facility] eGFRon 04-06-2023 eGFR 68 mL/min/1.73 m2 Normal >=59 [facility] Comment on above: Order Comment: Order added by Discern Expert. Performed By: #### 2 416831, [id number] ####[facility] [address] [address] [place] 03-26-2023 L Specimen: [id number] Received: 03/26/23 Status: EUGENIO Berrios Num: [id number] Spec Type: Surgical Subm Dr: Leidy Lopez Tissues: A BREAST CORE NO CALCS (RT BREAST MASS 4:00) Procedures: HE/2, Gross/Micro L4, CK5 6, E CADHERIN, ER, p63, WY Age/ Patient Sex Location Account Attending Physician Yasmin Jones 52/F LABELL [id number] GUY Khan ETHNOARCHAEOLOGIST-C SPEC NUM: [id number] RECD: 03/26/23 STATUS: EUGENIO BERRIOS NUM: [id number] AMY: 03/26/23 DR: Leidy Lopez ENTERED: 03/26/[address]: Edwin Benitez SPEC TYPE: Surgical DEPT: JORGE ALBERTO ROSALES ORDERED: HE/2, Gross/Micro L4, CK5 6, E CADHERIN, ER, p63, WY ORDERED: HE/2, Gross/Micro L4, CK5 6, E CADHERIN, ER, p63, WY Supplemental Report Addendum 1 Entered: 04/02/239 Supplemental for findings of HER2 by immunohistochemistry from [facility]: -Negative, Score 0 Addendum Signed (signature on file) Elvis Mcgregor MD 04/02/23 4605 Pathological Diagnosis Right breast 4:00 mass, biopsy: Invasive Ductal Carcinoma Grade 3 (combined Score Of 8/9). Histologic Grade: Grade 3 Glandular/tubular Differentiation: 3 Nuclear Pleomorphism: 3 Mitotic Rate: 2 Overall Score: 8 Breast Hormone Profile Specimen: [id number] Received: 03/26/23 Status: EUGENIO Berrios Num: [id number] Spec Type: Surgical Subm Dr: Leidy Lopez Tissues: A BREAST CORE NO CALCS (RT BREAST MASS 4:00) Procedures: HE/2, Gross/Micro L4, CK5 6, E CADHERIN, ER, p63, WY Patient: Yasmin Jones [id number] (Continued) Specimen: [id number] Received: 03/26/23 (Continued) Pathological Diagnosis (Continued) Signed (signature on file) Lazarus Chiang MD 03/31/23 1747 Specimen: [id number] Received: 03/26/23 Status: EUGENIO Berrios Num: [id number] Spec Type: Surgical Subm Dr: Leidy Lopez Tissues: A BREAST CORE NO CALCS (RT BREAST MASS 4:00) Procedures: HE/2, Gross/Micro L4, CK5 6, E CADHERIN, ER, p63, WY Patient: Yasmin Jones [id number] (Continued) Specimen: [id number] Received: 03/26/23 (Continued) Pathological Diagnosis (Continued) ER: Weakly Positive WY: Negative Her2: Pending Clinical Information Mass Gross [...] 0.03 Formalin Fixation Time: 14 CPT Codes 98655 Specimen: [id number] Received: 03/26/23-2859 Status: EUGENIO Berrios Num: [id number] Spec Type: Surgical Subm Dr: Leidy Lopez Tissues: A BREAST CORE NO CALCS (RT BREAST MASS 4:00) Procedures: HE/2, Gross/Micro L4, CK5 6, E CADHERIN, ER, p63, WY Patient: Yasmin Jones [id number] (Continued) Signed (signature on file) Lazarus Chiang MD 03/31/23 0604 [facility] BMPon 03-20-2023 Anion gap [Moles/Vol] 9 mmol/L Normal 6-16 [facility] Comment on above: Performed By: #### 1 [id number], [id number] ####[facility] [address] [place] [address] BUN/Creat Ratio 26 No Units High 10-20 [facility] Comment on above: Performed By: #### 1 0670504, 5766744 ####[facility] [address] [place] [address] Calcium [Mass/Vol] 9.4 mg/dL Normal 8.9-11.1 [facility] Comment on above: Performed By: #### 1 2506205, 8304281 ####[facility] [address] [place] [address] Chloride [Moles/Vol] 103 mmol/L Normal 101-111 [facility] Comment on above: Performed By: #### 1 6998527, 1377296 ####[facility] [address] [place] [address] CO2 [Moles/Vol] 32 mmol/L High 21-31 [facility] Comment on above: Performed By: #### 1 8601830, 1046221 ####[facility] [address] [place] [address] Creatinine [Mass/Vol] 0.7 mg/dL Normal 0.5-1.3 [facility] Comment on above: Performed By: #### 1 2627558, 9187463 ####[facility] [address] [place] [address] Glucose [Mass/Vol] 88 mg/dL Normal 55-199 [facility] Comment on above: Performed By: #### 1 9838496, 9094745 ####[facility] [address] [place] [address] Potassium [Moles/Vol] 2.8 mmol/L Abnormal 3.5-5.3 [facility] Comment on above: Performed By: #### 1 6593137, 4848025 ####[facility] [address] [place] [address] Sodium [Moles/Vol] 141 mmol/L Normal 135-145 [facility] Comment on above: Performed By: #### 1 0287396, 8810508 ####[facility] [address] [place] [address] Urea nitrogen [Mass/Vol] 18 mg/dL Normal 5-21 [facility] Comment on above: Performed By: #### 1 0044466, 4072570 ####[facility] [address] [place] [address] CHEMISTRYOrdered By: SYSTEM SYSTEM on 03-20-2023 Anion [...] Consent for Treatmenton 03-02 Consent for Treatment [id number]#1.00T IFF Normal [facility] Physician Orderon 03-20-2023 Physician Order [id number]#1.00 TIFF Normal [facility] eGFRon 03-20-2023 eGFR 104 mL/min/1.73 m2 Normal >=59 [facility] Comment on above: Order Comment: Order added by Discern Expert. Performed By: #### 1 3032518, 6937558 ####[facility] [address] [place] [address] [address] Cardiac Scoring Normal -[facility] 250 DO Work Phone: Office Visit (Cardiology)on 09-29-2022 Follow-up visit Diagnoses/Problems Assessed Hypertension (401.9) (I10) Edema (782.3) (R60.9) Class 1 obesity with body mass index (BMI) of 31.0 to 31.9 in adult (278.00,V85.31) (E66.9,Z68.31) Orders Class 1 obesity with body mass index (BMI) of 31.0 to 31.9 in adult Healthy Weight Tips; Status:Complete; Done: 37Jqk0183 Edema, Hypertension Basic Metabolic Panel; Status:Active; Requested for:74Xwj0101; CT Cardiac Scoring; Status:Active; Requested for:15Fox3806; Patient taking Metformin or Derivatives? : No [...] and no PND. Vitals Vital Signs Recorded: 78Xfx5000 02:29PM Heart Rate76, L Radial Kyrqcjfp337, LUE, Sitting Lalsfwpby49, LUE, Sitting Height5 ft 11 in Zwzppl235 lb BMI Jygbjgufnm32.52 kg/m2 BSA Calculated2.22 Tobacco Useb) No PHQ-2 #1. Over the last 2 weeks have you felt down, depressed or hopeless? (If yes, answer PHQ-9 below)No PHQ-2 #2. Over the last 2 weeks have you felt little inter (more content not included)... Normal [employer] Tobacco Screening.on 023 Adult depression screening assessment No [facility] 250 DO Work Phone: Fall risk assessment c) Not medically indicated [facility] 250 DO Work Phone: Tobacco use status [facility] b) No [facility] 250 DO Work Phone: Tobacco Screening.on 023 Tobacco use status [facility] b) No [facility] 250 DO Work Phone: BMPon 08-15-2022 Anion gap [Moles/Vol] 10 mmol/L Normal - [facility] Comment on above: Performed By: #### 2 487534, 75978391, 67982396 ####[facility] [address] [place] [address] Calcium [Mass/Vol] 9.7 mg/dL Normal 8.9-11.1 [facility] Comment on above: Performed By: #### 2 578607, 82708643, 31764364 ####[facility] [address] [place] [address] Chloride [Moles/Vol] 102 mmol/L Normal 101-111 [facility] Comment on above: Performed By: #### 2 884916, 78157199, 34515953 ####[facility] [address] [place] [address] CO2 [Moles/Vol] 29 mmol/L Normal 21-31 [facility] Comment on above: Performed By: #### 2 533347, 57799882, 36428612 ####[facility] [address] [place] [address] Creatinine [Mass/Vol] 0.7 mg/dL Normal 0.5-1.3 [facility] Comment on above: Performed By: #### 2 323588, 15746954, 12193538 ####[facility] [address] [place] [address] Glucose [Mass/Vol] 92 mg/dL Normal 55-199 [facility] Comment on above: Result Comment: If t his glucose result represents a fasting glucose, interpretation should refer to the following reference range: 55-99 mg/dL Performed By: #### 2 191663, 07088698, 33692443 ####[facility] [address] [place] [address] Potassium [Moles/Vol] 2.9 mmol/L Low 3.5-5.3 [facility] Comment on above: Performed By: #### 2 566620, 22626538, 17693517 ####[facility] [address] [place] [address] Sodium [Moles/Vol] 138 mmol/L Normal 135-145 [facility] Comment on above: Performed By: #### 2 012170, 04207776, 16095180 ####[facility] [address] [place] [address] Urea nitrogen [Mass/Vol] 15 mg/dL Normal 5-21 [facility] Comment on above: Performed By: #### 2 487798, 45867596, 61836292 ####[facility] [address] [place] [address] Urea nitrogen/Creatinine [Mass ratio] 21 No Units High 10- [facility] Comment on above: Performed By: #### 2 781854, 45329645, 39789522 ####[facility] [address] [place] [address] BNPon 08-15-2022 Int Ctr BNP Pass Normal [facility] Comment on above: Performed By: #### 2 699354, 53029155, 84678531 ####[facility] [address] [place] [address] Natriuretic peptide B (Bld) [Mass/Vol] 23 pg/mL Normal 5-80 [facility] Comment on above: Performed By: #### 2 489454, 54826050, 78120477 ####[facility] [address] [place] [address] CHEMISTRYOrdered By: SYSTEM SYSTEM on 08-15-2022 Anion gap [Moles/Vol] 10 mmol/L Normal 6 - 16 mEq/L [facility] Remisol Calcium [Mass/Vol] 9.7 mg/dL Normal 8.9 - 11. 1 mg/dL [facility] Remisol Chloride [Moles/Vol] 102 mmol/L Normal 101 - 111 mmol/L [facility] Remisol Creatinine [Mass/Vol] 0.7 mg/dL Normal 0.5 - 1.3 mg/dL [facility] Remisol GFR/1.73 sq M.predicted among non-blacks MDRD (S/P/Bld) [Vol rate/Area] 105 mL/min/1.73 m2 Normal >=59mL/min/1 .73 m2 [facility] Chem S Glucose [Mass/Vol] 92 mg/dL Normal 55 - 199 mg/dL [facility] Potassium [Moles/Vol] 2.9 mmol/L Low 3.5 - 5.3 mmol/L [facility] Sodium [Moles/Vol] 138 mmol/L Normal 135 - 145 mmol/L [facility] Urea nitrogen [Mass/Vol] 15 mg/dL Normal 5 - 21 mg/dL [facility] Remisol Urea nitrogen/Creatinine [Mass ratio] 21 mg/mg High 10 - 20 [facility] Remisol Consent for Treatmenton 07-31 Consent for Treatment [id number]#1.00C D:[address] [facility] Laboratory - Chemistry and C hemistry - challengeOrdered By: SYSTEM SYSTEM on 08-15-2022 CO2 [Moles/Vol] 29 mmol/L Normal 21-31 [facility] Niko [facility]uliet Laboratory - Chemistry and C hemistry - challengeOrdered By: Jackson Bettencourt on 08-15-2022 Natriuretic peptide B (Bld) [Mass/Vol] 23 pg/mL Normal 5-80 [facility] HemeManS S No Panel Informationon 08-15 105 {mL/min/1.73_m2} Normal >=59 [facility] 250 DO Work Phone: Comment on above: Chronic kidney disea se could be indicated at eGFR's of less than 60 mL/min/1.73m2. Kidney failure is indicated at less than 15 mL/min/1.73m2. 10 {mEq/L} Normal 6-16 [facility] 250 DO Work Phone: 102 mmol/L Normal 101-111 [facility] 250 DO Work Phone: 2.9 mmol/L below low threshold 3.5-5.3 [facility] 250 DO Work Phone: 138 mmol/L Normal 135-145 [facility] 250 DO Work Phone: 9.7 mg/dL Normal 8.9-11.1 [facility] 250 DO Work Phone: 21 {No_Units} above high threshold 10-20 [facility] 250 DO Work Phone: 0.7 mg/dL Normal 0.5-1.3 [facility] 250 DO Work Phone: 15 mg/dL Normal 5-21 [facility] 250 DO Work Phone: 92 mg/dL Normal 55-199 [facility] 250 DO Work Phone: Comment on above: If this glucose resu lt represents a fasting glucose, interpretation should refer to the following reference range: 55-99 mg/dL Pass Normal [facility] 250 DO Work Phone: Physician Orderon 08-15-2022 Physician Order [id number]#1.00C D:127 Normal [facility] eGFRon 08-15-2022 GFR/1.73 sq M.predicted among non-blacks MDRD (S/P/Bld) [Vol rate/Area] 105 mL/min/1.73 m2 Normal >=59 [facility] Comment on above: Order Comment: Order added by Discern Expert. Result Comment: Medical Billing Assistant [facility] kidney disease could be indicated at eGFR's of less than 60 mL/min/1.73m2. Kidney failure is indicated at less than 15 mL/min/1.73m2. Performed By: #### 2 054666, [id number], [id number] ####[facility] [address] [place] [address] Office Visit (Cardiology)on 07-21-2022 Follow-up visit Diagnoses/Problems [...] Peptide BNP; Status:Active - Retrospective Authorization; Requested for:[id number]; [facility] EKG Electrocardiogram- 12 Lead; Status:Complete; Done: [id number] Hypertension Start: Chlorthalidone 25 MG Oral Tablet; TAKE 1 TABLET Daily Start: Lisinopril 20 MG Oral Tablet; TAKE 1 TABLET DAILY Start: Metoprolol Succinate ER 100 MG Oral Tablet Extended Release 24 Hour; Take 1 tablet daily SocHx: Never a smoker Tobacco Use Screening; Status:Complete; Done: 56Gmn8337 Tobacco Use Screening; Status:Complete; Done: 21Jul2022 Unlinked [...] negative for complaint. Vitals Vital Signs Recorded: 27Kev5601 08:15AMRecorded: 03Mme5129 08:14AM Ybqfahre203, RUE, Kiiatjd092, LUE, Sitting Qqkxaijyy46, RUE, Mnrdrux83, LUE, Sitting Heart Rate59, Apical Height5 ft 11 in Gmjrek079 lb BMI Vqbzulokop33.82 kg/m2 BSA Calculated2.2 Tobacco Useb) No PHQ-2 [...] Neck: ne (more content not included)... Normal [employer] Tobacco Screening.on 023 Adult depression screening assessment No [employer] 250 DO Work Phone: Fall risk assessment a) No falls within the last year [facility] 250 DO Work Phone: Tobacco use status [facility] b) No -[facility] 250 DO Work Phone: Family Medicine Office/Clini [...] day(s), # 21 cap(s), Refills(s) 0, Pharmacy: [facility]/pharmacy #[id number], 180, cm, 07/14/22 14:05:00 EDT, [...] diphtheria/pertussis, riri (more content not included)... Normal [facility] Comment on above: Result Comment: Elec [...] to help relieve symptoms, such as: ? Chqh-jeo-pitvppe cold medicines. ? Cough suppressants. Coughing is [...] other clear broths. General instructions ? Take ucxz-bpt-slbvkzj and prescription medicines only as told by [...] and water are not available, use hand program/music director. ? Avoid touching your mouth, face, eyes, [...] Get help (more content not included)... Normal [facility] PAP ACOG PANEL 2: 30 to 65on 01-03-2022 . . Normal [facility] Comment on above: Result Comment: Perf ormed at: WB Performed By: #### 4 [id number] #### [facility] [address] [place] [address] Dr. Daniel Mcgregor Age Gdln ACOG Testing 30-65 Normal [facility] Comment on above: Performed By: #### 4 [id number] #### [facility] [address] [place] [address] Dr. Daniel Mcgregor DIAGNOSIS: Comment Normal [facility] Comment on above: Result Comment: NEGA TIVE FOR INTRAEPITHELIAL LESION OR MALIGNANCY. Performed at: WB Performed By: #### 4 [id number] #### [facility] [address] [address] [address] Daniel Mcgregor HPV Aptima Negative Normal Negative [facility] Comment on above: Result Comment: This nucleic acid amplification test detects fourteen high-risk HPV types (16,18,31,33,35,39,45,51,52,56,58,59,66,68) without differentiation. Performed at: =G Performed By: #### 4 [id number] #### [facility] [address] [place] [address] Dr. Daniel Mcgregor HPV Genotype Reflex Comment Normal [place] Comment on above: Result Comment: Crit eria not met, HPV Genotype not performed. Performed at: WB Performed By: #### 4 [id number] #### [facility] [address] [place] [address] Dr. Daniel Mcgregor Methodology: Comment [facility] Comment on above: Result Comment: This liquid based ThinPrep(R) pap test was screened with the use of an image guided system. Performed at: WB Performed By: #### 4 [id number] #### [facility] [address] [place] [address] Dr. Daniel Mcgregor Note: Comment Normal [facility] Comment on above: Result Comment: The Pap smear is a screening test designed to aid in the detection of premalignant and malignant conditions of the uterine cervix. It is not a diagnostic procedure and should not be used as the sole means of detecting cervical cancer. Both false-positive and false-negative reports do occur. . Performed at: WB Performed By: #### 4 [id number] #### [facility] [address] [place] [address] Dr. Daniel Mcgregor Performed by: Comment Normal [facility] Comment on above: Result Comment: Roxann ica LuKacs, Export Specialist (ASCP) Performed at: WB Performed By: #### 4 [id number] #### [facility] [address] [place], [place] [address] Dr. Daniel Mcgregor Specimen adequacy: Comment Normal [facility] Comment on above: Result Comment: Sati sfactory for evaluation. No endocervical component is identified. Performed at: WB Performed By: #### 4 [id number] #### [facility] [address] [place], [place] [address] Dr. Daniel Mcgregor MG MAMM SCREEN 3D VONNIE CADon 12-13-2021 MG MAMM SCREEN 3D VONNIE CAD Patient: YASMIN JONES Exam Date: 12/13/2021 : 1970 Gender:F Ordering : DR KAYE JARQUIN Admission #: [id number] Family : DR DAYANA BASHIR . Order #: [id number] CLICK HERE TO VIEW EXAM RADIOLOGY REPORT [...] Treatments None Family Cancers None LOCATION: [facility] BREAST COMPOSITION: Heterogeneously dense,which may obscure small [...] MD on 12/13/2021 at 08:39 Normal [facility] [employer] Quick Testingon 2021 Result Negative [employer] Other BASIC METABOLIC PANELon 07-2 BUN/CREATININE RATIO NOT APPLICABLE Normal 6-22 [facility] Comment on above: Performed By: #### 5 616, 06258, 71213 #### [facility] [place] [address] International Account Representative: Heraclio Miller MD Calcium [Mass/Vol] 9.7 mg/dL Normal 8.6-10.4 [facility] Comment on above: Performed By: #### 5 616, , #### [facility] [address], [address] [place] [address] International Account Representative: Heraclio Miller MD Chloride [Moles/Vol] 103 mmol/L Normal 98-110 [facility] Comment on above: Performed By: #### 5 616, , #### [facility] [place] [address] International Account Representative: Heraclio Miller MD CO2 [Moles/Vol] 30 mmol/L Normal 20-32 [facility] Comment on above: Performed By: #### 5 616, , #### [facility] [place] [address] International Account Representative: Heraclio Miller MD Creatinine [Mass/Vol] 0.77 mg/dL Normal 0.50-1.03 [facility] Comment on above: Performed By: #### 5 616, 70533, 66322 #### [facility] [place] [address] International Account Representative: Heraclio Miller MD GFR/1.73 sq M.predicted among non-blacks MDRD (S/P/Bld) [Vol rate/Area] 94 mL/min/{1.73_m2} Normal > OR = 60 [facility] Comment on above: Result Comment: The eGFR is based on the CKD-EPI 202 equation. To calculate the new eGFR from a previous Creatinine or Cystatin C result, go to https://www.kidney.org/professionals/ kdoqi/gfr%5Fcalculator Performed By: #### 5 616, 75256, #### [facility] [address], [address] [place] [address] International Account Representative: Heraclio Miller MD Glucose [Mass/Vol] 91 mg/dL Normal 65-99 [facility] Comment on above: Result Comment: Fasting reference interval Performed By: #### 5 616, , #### [facility] [address], [address] [place] [address] International Account Representative: Heraclio Miller MD Potassium [Moles/Vol] 3.4 mmol/L Low 3.5-5.3 [facility] Comment on above: Performed By: #### 5 616, , #### [facility] [place] [address] International Account Representative: Heraclio Miller MD Sodium [Moles/Vol] 140 mmol/L Normal 135-146 [facility] Comment on above: Performed By: #### 5 616, , #### [facility] [place] [address] International Account Representative: Heraclio Miller MD Urea nitrogen [Mass/Vol] 11 mg/dL Normal 7-25 [facility] Comment on above: Performed By: #### 5 616, , 37586 #### [facility] [place] [address] International Account Representative: Heraclio Miller MD IRON, TIBC AND FERRITIN [facility] 09-21-2021 % SATURATION 10 % (calc) Low 16-45 [facility] Comment on above: Order Comment: FASTI NG:YES FASTING: YES Performed By: #### 5 616, , 42892 #### [facility] [place] [address] International Account Representative: Heraclio Miller MD Ferritin [Mass/Vol] 11 ng/mL Low 16-232 [facility] Comment on above: Order Comment: FASTI NG:YES FASTING: YES Performed By: #### 5 616, 28071, 81318 #### [facility] [address], [address] [place] [address] International Account Representative: Heraclio Miller MD IRON BINDING CAPACITY 542 mcg/dL (calc) High 250-450 [facility] Comment on above: Order Comment: FASTI NG:YES FASTING: YES Performed By: #### 5 616, 91145, 43443 #### [facility] [address], [address] [place] [address] International Account Representative: Heraclio Miller MD IRON, TOTAL 54 mcg/dL Normal 45-160 [facility] Comment on above: Order Comment: FASTI NG:YES FASTING: YES Performed By: #### 5 616, 43102, 84735 #### [facility] [address], [address] [place] [address] International Account Representative: Heraclio Miller MD TSH W/REFLEX TO FT4on 2021 TSH W/REFLEX TO FT4 3.86 mIU/L Normal [facility] Comment on above: Result Comment: Refe rence Range > or = 20 Years 0.40-4.50 Ranges First trimester 0.26-2.66 Second trimester 0.55-2.73 Third trimester 0.43-2.91 Performed By: #### 5 616, 36082, 93182 #### [facility] [place] [address] International Account Representative: Heraclio Miller MD Consent Formson 09-09-2021 Consent Forms [id number] [facility] Coding Summaryon 09-03-2021 Coding Summary HTMLBase 64 AclahmynHJq7vKg+PGhlYWQ +UA2XGHClM34bwGYcvW7JV0 gWUB4PMVUBXRFYVY5VHG1tn VZ1QEiuQ8VgzuYp AhcvcBUkVM48HCi4EKP3iHv kXAyonU3wiUQpI1i0UpVwUI 63qN39NSdvVOCqXoJ6NvPtb jsgbWFy L1vxYeMnmGMrMdu+PHRhYmx lIHdpZHRoPScxMDAlJyBzdH ygGI9gJz5zLFOoGARblKqai HNlOiBj i0rvFPJtHSxwBJ6ktRkqB6B xjVN9OFKxt8u7Eg63jAP+PH MuMAG6fCrbOZrfm170ZuNgl 7nxIDM8 lCPbTMthQUQ2K12ro1B2QVR fFAHoTYZ2gXJ1mE9tqQreoa ooP3PjrTKjGfN1RCK3wPGif H2suVdn brebjB7uRlz+I67TOJ2MPOU AIN8HQhn7K1DjFaxfhMX+PC 22PRTsFV92bGZyvYGkf3frp Ud7JcJt ZEMxBCV7tAftVVtyb8JnNRA nQ92reOGsa6Y8FEQncBdzxT LoPnKrkAY6mS0eTFxtdxnnv 2hvdzsn Irrbr3aqbx06gD27P99bXKq oLBFeBHJ7BISjVGJvmKgnsb 0cvY1iZj6+DEcdy7xjz6ufg Sh5DiQi GQOdjcAqrYlkDHI4s1EwSq9 7G0BqqZhba8UbAsg8cf42vF Isn1S2lMG6AMqoWVBobY7oQ WxlZnQ6 STUcBxRgzB14kKIlSNovXe2 tcNsugOozNC2lEKAaqygxSD WyvW2kWFGsiRIgvEdbQW6lA TBpbjtm r389RyUgRYS2MIFqwJCcD7R iuB3kRzWoNXPnOVJkT7QkeG MhEGhfB178YRqvRmM9JUCvj yXyH8Kx INJyxGfyDxK8i0F1Mj9Fi0D weyjwXKB9GUumNAP1WgJ7Pn DcObC6R3DoHus3MMTatBtmH P6zB0Jr LEUhyyxuqynsuVI3NPLjKON dsA15hYUqXIpmBd3lr2E0t1 31SAExGKYhcG87Bw7dtOlmP TBwdCBU zR9znpbbg6esteqgNpLzJIA vHCf3AKy5DKSbfGgrAiQaOY O4FmE7WDN4sZGoiQ7orRcpb ndsmS7k Oyc+G00dfF5lXBZ3NFA0cqt oNMInurJhDV65FH49E6VcBc wvdGFibGU+PGRpdiBzdHlsZ I9dLrPj n9iot5SyXAahY7SsXEKlOEy oNwi4SJDkRVS5qXK0hF2nXT RnKBeyq8J9fYM1N8FyvjIjy j8fq8mj ZVCzZIueP85xtKTmd7K5FHF vuLN4JDBayFxuYiPziZ86Dy c+XOEfiRbdq3QcKrlyt6tql 5gmuOj5 KnSuPLVlfkGqeJqzVMY9d1G jLy69J30yLAwjNECoIJYaMT LaVYGsyKzmcf5qbR1wRf7+P GNvbCB3 lMA3rH1iCECqMlY9YTpgV23 0QjVflIXrCuriz3cll0vjxH j4OdDvTUWucjZnmKrwZVT1k 9YrTw90 S94vEQrdWFYeGHDhLZJwXYJ kvRfgmz2kgP8jVu9+PC9jb2 vdqg83sJ21jVZ+WLCpTZY9x WxlPSdw KDEkkZ3nGBaiAuO8BNPdEzS huV02bLLrPYddVx3kgTjtiC sdDA3kRDZkvkptq158DzUoo 2xkIDEw sRXwQFgvMNV9Q06lz4L4YQK vZVIvYDP4sSL3qN8qjMruyc ogbGVmdDsgdmVydGljYWwtY DnqC512 IHRvcDsnPlBhdGllbnQgTmF mQDz0Y4HtRza0IWZolSqbRW 9flCZgCWinRj4mfMwkuWhxA C9kFCUa vitij391IiKcy9iuZCYqgON iHJpwJZU7S39bi9H6ZRGiJB RbFEM6wVD3sJ4unQwhioevv GVmdDsg lnUsmCpgWOtxCUlhC419IXV vgJweMhMnevIiMBAcbQW6VQ 25JD46bGPsq2Y3dMS9K1JyE GRpbmct ekeqeQU2JQOsISQryZ63Wc9 spRzrEq0mKGRxKQY6ZOXfqV PgG3CkaL7bQiPzBHAcSPHwM 3RleHQt YElaS210IPcmFkI8IEZnkdU tK7ZvWZDfgFxfBsC1q0P4Jw 4ER6H8IR80ZE89oVMkq3D8m EF7W0Mm DUDkkghtvnvkoOZ0DZGbHXC djY18Mx3chDddTz8aHBHfQS X5TLSwyVCvO4ZeuZ3wZuCvG DAwMDAw K1EioRWzBVkeW807UOuwDpY 2OISykcBiC4AxUXLldWnmLt A9y1S6Ix4ECNe1RK46YY61a TMel9X4 xAB0L9CzZZCdgxuboqfdlYF 1UDTqCCByaH48Vb3usZhaXu 7jBFHtCHW1NERndCEuO2Toy K8pEgWy BGIqTQJvD0VcjGJaDSraY47 3HNmcNpC7MQVjqaZhP9QySS BzgUtiNeR4c0N2Xh9BXYKqI M82HPG9 xGF1OR12DZ40M3ShLxgxmNN ibGU+PHRhYmxlIHdpZHRoPS hlBJTsLhRxzSumPL9yIj1uN GVyLWNv hPeqbMViIsSlq4ulFSBiHGb hCI6ioLzwR0MavSN8IQUwp2 v8Mg24D89cH6AvmSQ+PGNvb ZM7jLF7 zO6wOqPkWjP6ZXgaH755ToQ txKAfTcrbn2wyd9dccIn7Xl U9NWTshdLutLrcGXV3k5VlI a99L15j IHdpZHRoPSIxNSUiIHZhbGl syg2cfW4nEs9+AXEesKE0qM Q0pV4bJcPeDmF3AXhkO498S nRvcCIv Bppso9ajs0ovnWx1RjOkNLF zanVyaHhlMSE5u4GxFl94R9 IorIipj1PiFju2cg94sVDgv 7Z1mHP7 X9XwUDSbsvmfwRBuoCqaCK8 pVACsvzkqYMWtmS4wOHPqO7 s4XtKkFsO6PQerK5LsukJ8M DEwcHQg DTciXMN4E55xs4J7OKSnWEY sETX5zFN5iP5hpIluqbigtG VmdDsgdmVydGljYWwtYWxpZ 246IHRv hGclZNHxmR3aWGUzwKBpgSf aZG0iKVKyhjvbYgvNTY0SXx wgRUxJWkFCRVRIIEFOTjwvd GQ+PHRk BUW3aNuoZRxzHIXhtT5mDPZ aL3t3ViWjLiS8EEjoJ2NgGE WbpeayAi35wE6rRhAzJoJ9L QbuK9Vx omL6JRGpdABnRYrqCVL9M39 or0Q7ZBDhAMQkJLN4kAR2xA 1hbGlnbjogbGVmdDsgdmVyd GljYWwt RXafA688SGLvuKsaDrA3ZjN jUnC1NpH6O4LvWai4FLDovB giCP7jxEOwXDcbTu7scGfyv VjjGL8q BKOdohfzLUJsjK6xLOFqqXO mzGycKZ7fTUFicocpb780Hg QoBHG7XYGlkGTaR4CljW2oO iAjMDAw BHCkD2XzmSZmNJzsG430ZJl oOmE8LTHtxqJoT4WlIQGlhH zyPrQ3x8K4Ls07UZDTLAQwm zwvdGQ+ VDXnXET7mDmeTDraGQZszH0 vKDFdE8z0TkNmLsQ9KVbhB7 TgEBBqobwgCs32uV1iJqWvJ aB5HYdz V1AxocU5CXOozZOzODutFGG 3A85ah9R3VXQcQZNmQGX1jM A5tM2nhRflciimdIYnnOsga mVydGlj MZasFGrsM218TEBfrWxqJhW FTUFMRTwvdGQ+GKEqUED0eW zmSJziQDPxeB5gPDPvF5j5M iAwLjA1 YQclK1VaFWVuelsvJj26rL5 hQpBeTuD2BIsbB0QojdG6DB UlfWGwMKkkENS2Y89vo3D3K CMwMDAw VEX1mXO1yQ4ijEinozigiNR mdDsgdmVydGljYWwtYWxpZ2 46IHRvcDsnPkRheSBTdXJnZ ZX3RU95 SC73P7LuWinjnSXgpHI+PHR hYmxlIHdpZHRoPScxMDAlJy NloPvpGU4bDm9oCWYtLDZcy GxhcHNl GdEkw6zbPSQcZYmpPI8dbPm mA6HjjJQ5SLWup8k4Ga22W0 9aC0ZzjTA+ZFEanBR1aKR6g J9cKsVs VyD1NSamK610RiJwnVMwPoe fk5res8owcRm9BdJmIRUgec YsmLluLRI4f1GbRs12T27dW HdpZHRo MXGuTZIlINWirQepam0jtY0 wIi8+CDIwpPQ8tFI8tN4rVd KfXmE0HHyyV503CtMoqCDyJ swnP33b T3RitIW+TFTjTmz8MPYrdAj wLQ6gmBQaPIvpAw9bEOZ6Lv DaYqKeMRbsX0YaTYOkittbs mlnaHQ6 GDFqNLSwkN66Oe6baYwjOg9 zBARzYLF9QZKhsAXtD9ZqnO 6gNlCqZWXjXAPhE3ZtyGBpZ VjlV422 HPhuLbG7NYOwagNrK3PwPGS nfTpnOzY9z0Q3Oz0PnHnhvD PnZW4kRhWmALp0F0ZgBth1E CBzdHls JM8ooRKzDTmwCk5wfVeonWv yQK0dNTWwepdeu434JxQje5 alCFHefZZvMFihKVR9X85yy 4E3IZUs GKQcDBQ3aMU2pZ6amRlctie gbGVmdDsgdmVydGljYWwtYW cmP706OKRcoXsdRqZVSoh3S 3KoHfa9 DPOxhGpuJK0jyEHwKEorXd1 rgNockTdwKR6dNEBqimegg5 75KjYri5hnSLIctGRqUFllR XG5K58c i6A5LKUuAXRvIBU7yVA1tL4 hbGlnbjogbGVmdDsgdmVydG phMBhwSSylL440ZBIgkYciV f7PLiq5 E2PuKex9NNDfuQtyQL2xgAN yWWavCe5laZxlsYydRQ4vVQ Nhcioes839EzJep6uqYVOed HQgVGlt ZVB9Q81zb7I1MJCjTIZvYFT 8nRY2vH6ufBebfiqouEQyfI kbmuYmnQplNZhaTWwdC036B HRvcDsn PlBheWVyOjwvdGQ+BA03ic1 0T3AhBzzpYgs3NWUsCIH0xP I7iK7bTSXnCLzhk3T8eGB8A 2JvcmRl ci1 (more content not included)... [facility] Coding Queryon 08-27-2021 Coding Query Documentation [...] Oglesby DO [Transcribed on: 08/27/2021 07:54 EDT] [facility] Consent Formson 08-27-2021 Consent Forms [id number]#[id number] [facility] Telemetry Stripson Telemetry Strips [id number] [facility] Anesthesia Noteon 08-26-2021 Anesthesia Note Patient: YASMIN [...] on: 08/26/2021 14:58 EDT] Christopher Cadet MD [facility] Anesthesia Note Patient: YASMIN JONES Age: [...] = 1 tab(s), PO, Daily Potassium Chloride (Ntr-Ecjq-Ram 10) 10 mEq oral tablet, extended release 10 mEq = 1 tab(s), PO, Daily traZODone 50 mg oral tablet 50 mg = 1 tab(s), PO, Once a day (at bedtime) Problem list (past medical history): All Problems Cardiac dysrhythmia / SNOMED CT 1977809210 / Confirmed HTN (hypertension) / SNOMED CT 3175905893 / Confirmed Histories Family History: No family history items have been selected or recorded. Procedure history: Arthroscopy of knee (270323368) on 01/21/2021 at 50 Years. Comments: 01/21/2021 8:41 Carolina Pickering RN right Abdominal hysterectomy ([id number]). Arthroscopy of knee ([id number]). Lipoma ([id number]). Comments: 01/04/2021 11:19 Milana Melton RN excision History of tonsillectomy (6637134310). ACL - Anterior cruciate ligament rupture ([id number]). Comments: 08/12/2021 13:15 Carolina Heller RN repair with caddiamondor Social History Electronic Cigarette/Vaping Assessment Electronic Cigarette [...] Oriented. Review / Management Laboratory Results Plan [place] [employer]#(ASA) physical status classification: Class II. Anesthetic Preoperative Plan Anesthesia: General. . Anesthetic plan, risks, benefits, and alternatives discussed with the patient and/or family. Patient verbalized understanding. Informed consent was given. Anesthetic technique: General anesthesia, Patient presented with diastolic HTN; this was also noted on her PST chart. Had a lengthy discussion with her regarding this. Her primary care (ETHNOARCHAEOLOGIST) recently changed her from Toprol to Coreg... Patient has reported no changes and has noted her diastolics have been above 100 for months . We discussed treating her with some labetolol here with the hope of moving forward today with her surgery. We also discussed putting a better jail plan in place regarding her hypertension. Her and her both seemed to express understanding. . [Electronically Signed on: 08/26/2021 13:29 EDT] Christopher Cadet MD [Verified on: 08/26/2021 13:29 EDT] Christopher Cadet MD [facility] Coding Summaryon 08-26-2021 Coding Summary HTMLBase 64 ZkwylqlzUJi0bAi+PGhlYWQ +MP0LCQHuY27iiZVivW3NJ2 yMDL6OHQXIGYLIGV0GWA2la CW5UMjbZ8HpxrDo McpnjJBuHO66JJw0KWN3dUh mJNzdkJ8zyCZdG2d5NdFzUX 17dT24VSagLYBbNaB1BxHho jsgbWFy W6piLaNdqBKaEsl+PHRhYmx lIHdpZHRoPScxMDAlJyBzdH cdQE5yKy2dCUFqQRHwqEqrp HNlOiBj h6ktLRWdDIduHI6ymZvbJ2Q unJI4UDLdy4k4Zp77jVQ+PH NcWJH6xMxiCXjso007DuHas 1ipLGN1 mDUhUIpvFDU6W28kl2I2XAW iSRGxBFN5vOE7fR4dmEjhym otJ8QowJHyFgS4MOS6xSJpc K0wwFkh pqthoF3fGdg+M82UGJ9DUAS GHI8IAvc5K8TzBabyeDD+PC 54GMEbQZ84tTIebDMfc2gfb Xs6IeXd JRSgPRP2qMxzOVovo3YvNZI pR45gsRToj2E1XCZgnWlbzS GcNfGxqYX0lM8pONmvupeua 2hvdzsn Ctzvm4kkuy14zU50K67nOSe nZUGrIVG0IMOvVXEjrPsmpo 1umT5xHl8+IFuzw1bqd7iva En5JaWv FVVqsmPttPjxCVL4a7DeUl2 0E1PqtIquf6HlLmd6ct48pK Rcl1Z7cCU3SWvqJDUnmN4qH WxlZnQ6 OVLuOnGukN73sOQuCAwqHn0 usHpjeLmnQP9wTSTajrnpCE JjuB1bZLTyrEQnrPwuKB6lI TBpbjtm j425QsZxXVJ6NEWgyEJtG3R wmM5yBkEqFXGdHNZbN8JziF CcVLjmP803FRwxKtT1HVXwk hPwD7Wg BEKenDojTjH6n3I9Ko7Up5N xmauxHYO2CVzkGJM6HbC9Ec ZtNtM8S7NqNoh8VHFceSnqR F0xC9Og GQZcxwaqtrtezMM0RLOhMEF fmQ21qVHkFXxbAj9ss8Z3l6 42HYUhSXTueN28Tn0uoPoyJ TBwdCBU cY3vxdrca2cgcvxwZlZyGJH nEEl8NXk5YOZlkNbpKlLlOU Z1SxI3RZM1aJScyG4rdKems gchiY3w Oyc+Y12fwQ7rGDA5MRG2wtg vECPswkCqLS28US55P7KsVv wvdGFibGU+PGRpdiBzdHlsZ V0xByXs r0etw4HrHIcrD0LxFRBoIBt hJzs1YWVpYAR3gOA9aI5oMA EvNOisd7B2yXI5T5LfpqFqx y2as3ah CUTsPEhvN15mzPRcu9E7YIM bdSQ5DYDnpQhjTaJjgO34Lo c+ILAqaQdvx5GaWshqu2jvb 6pxiVx3 HhEeVWLucjFpoRfdEOL6j4S uBb48I82cBRmiKLGfKIFpBV EfIGZzgMxnrb3vcQ3bQz9+P GNvbCB3 hHW1oF1vCTWwGwQ7PTqgS33 2HaWiiGHeQdfxo5fmi5edqG d9LnNpFRXnvhPbzCtqAIU7k 1VdSb22 U90mDLctTIRjMUPhGRIcNZP tlPmvzc9qfQ3yOl4+PC9jb2 uost73uG14rLC+HAGpXNO2h WxlPSdw JCEwbC9bBHhuVaC9CPCjEsI mwY24wALpYJubOo4ahEqfeZ vaCK2gRALfuroeo485VhKjb 2xkIDEw eQAzGIyjAKU4M01df5G5PBV sCATuDED5cVY8mV0yoZysdq ogbGVmdDsgdmVydGljYWwtY YqoL031 IHRvcDsnPlBhdGllbnQgTmF bOZe5F5FzJmg4FRSnqBjxJO 8bdYYnIXajQz2hjCnnoJvnN O3eNVYy citmc745SaYhs5taUUYeoNZ jVMrlTJR2D80bz2P7XNHtZR IjHPG2yNV1eM4nrLmxzgpyh GVmdDsg utJvqIqwSTnhKAmiU954FFH jkMhvInJvfwTyPWCulTB3DY 30HK79eMFkc0U3pKX0G1NwZ GRpbmct tsiusYI1MWIvWVFwtE47Xc0 nnGxiBk5hFIWoQHP4UAIdgF CmO8DvrP0wLqKuMXPlBLIfD 3RleHQt UTweS797WZihXhN5AOMurlQ yR2KjYYVdbMigCgM5u4E1Bp 4NG4X9IQ61GH44rMUch8M1d QJ2N0Bh OJNvovzgirdwfLB8KVNnMXR brR12Cw4ewXqvVo8yHORnLO W9YXEueBKpQ6YliV8nBjSzJ DAwMDAw J0NpyIYjYLdyR036QNzhXbF 6CUOysvElY2UhNMLsaOjkWg K0i0L0Wp0RLTn0FN44ZI15a KFzq0V6 nMD7Y2VsRRYvfyuuztnpjZE 5UVKwIISegO75Lc1hqDhoJl 7nXXArGJB5OWHsuGOgS6Snd V4nTcZe NMMkKSRxD0NpyZFxLTxrI65 8ORwrVrX7YDQwttQuZ8FxHJ JikLspXuV7e4K5Xl7LXDLjW T20PHQ8 aXI2RZ00YW75O8HcDtqldPI ibGU+PHRhYmxlIHdpZHRoPS wzLAVsIbPcwYkvSL0gEv4kX GVyLWNv iSwykAGgOvXgl2eaNDYwGIo xEW7wzHtiA1FtqQX9DMLgq2 r2Xl74D69fU8ZijIF+PGNvb VI6aYI9 zG8lGfFhLpA1QOvaQ982IkY mqMRzFzfiq0neu9lzsSa0Lx P2PMYkahFblSjlQCR1m8MmZ f26A14v IHdpZHRoPSIxNSUiIHZhbGl meq9ybD4zBv2+KVTczCK7sC J4oG5gIaXnBzJ9CJfoU916M nRvcCIv Tmcoc6uzt0uqoRl8FjDvIRC tyqXzwIoxRTT9h0JfWr35G0 HkcFxpn6TwRzf2ym40cUEts 8N0kBI7 L9ZmCIBkvgafkFYarOduNU1 hATXwotsjRFSknE6fMFEgU8 q2FdVpGvI7GLvnG5FseiX9G DEwcHQg UAtoXWM6C73rh2Z4GHVdUZK bCBS3gSM1uI8qmDkcviitbC VmdDsgdmVydGljYWwtYWxpZ 246IHRv cYbkTLHipE3nEVFkaMEvsRz dYB5nIELgdwhiZyyAOZ9PMi wgRUxJWkFCRVRIIEFOTjwvd GQ+PHRk EQG7xMrbYNlaEEFdkG4gPWL cH1a2LqVjHjY6CEwsV3LtGW SaeylqGn15eL3xTjJlCkA6W PqcK1Ud qvV6VYJekIZiOAmqYMU1L53 qc0S6CZFcEFIqHLB8mTE7dY 1hbGlnbjogbGVmdDsgdmVyd GljYWwt FIbeM032VZQimOmxSaD4PoG jDuT0RbW0J9KrHbp0HDRmmB xmVZ7aiHMcVKlbQo9pqHdbr TqnAF3l UFPnfhuhPQIubX0qCDFiaZY yeSqjGI6hCTNkqvexa580Ki NySVW0TPVgzCEgF8IezT6sI iAjMDAw HMUzE6IhnLPvJTvzU807MRo zImW0GBUiifFmB2JxBBOnzA uqTjX3a9B5Bt89UZNEZKHnl zwvdGQ+ KFYwISA0hHtnYGmpLFRnkR6 lZLRnP7p0FsNtOyP9CGtjY3 SnJHGtijzoIj48qS9ySjSrD cK2WAwo U0DmvzC5ICPxpAEgXMydBRJ 9D84yt7W1TWEtEHVkVXC4vE E2sB5gjOhraxalwVMlaVrso mVydGlj XCscRWjuU235AOVihCkaEsM FTUFMRTwvdGQ+XBBoNEA6oH jhFBmeVWZltX8hHLWmS1k8S iAwLjA1 HFpxL3RtQAMmrmkcBp44iC2 wDyCoExI3HWglW7KavfM8DM EhqNMaMWraIVW5W33de9P1S CMwMDAw JQF6bCN7nF2miTlidnlzhFR mdDsgdmVydGljYWwtYWxpZ2 30UXTfyUmzTf0QFH67WF54K 3RyPjwv dGFibGU+PHRhYmxlIHdpZHR jBKfhCPHtBfIngYchYO3lRt 9yZGVyLWNvbGxhcHNlOiBjb 2xsYXBz RNlkEP6phMnoN4FajQF8SYU ga0k2Eq61I78dH9LjpGU+PG PgnLR3jJO1pD3yDbHxAzJ0X VuoG919 EzXzwZEcFvnoi2syz5plvNe 8FoAeFXNcopCvoNjqGNZ1t6 ZdAm50W73lUKfmMHZdTPAvP CUiIHZh xPlmhb7cpG2hCq4+PGNvbCB 9jEN4lG0qFcAqHtO8NMeqH0 22GpBhhYGaQwfcV07qT4Xvn XA+PHRy Pcv4MFXhlWmtED8bjEPwTWc vQo8bGYA0XuJcLcOiMCjeX9 KpPNWhqyxomcwwkRV6TKEsB DUwaW47 Ah6qeZvjMq9lTLWzRSK5WXQ wnTEaW9NrhW8zEiZdTCRxML IyV7ImkFXdAHnbY293VUafU kW6BNWj cqRmK3ZxRAAyyUyuJeJ2d6K 0Tt9CnUfkpNTzFR8vOmTrBV f4D0JjDlx8IKHwdQygJS1cq GFkZGlu Xy9kjNsaaOwxBF6aKSRnipw fc747NbRou7pkHCVreNTwGO dqZQH8V52ms0N9FTVwWAHbW OG0tJW7 mE0usLftpofawCRxhWemwrG jmPbsPCoiTHlrE513ZCVtvY giIkJYUnb6O8HjHik3TWOxd YfyPO5u yKBqDTqmOl0byOhalJioJN4 mCGClfungp794CnGcl5bnQF UsmIVjZPdqHHC1V10wz7P6W CMwMDAw CHR5cKW1vE0vuNytvkyytJX mdDsgdmVydGljYWwtYWxpZ2 73OOAgyWykDz6UCea0O2MhL it1ONWu rCgxCE7wjSBmHPclMc0haFq apGkkXG9aNLBqglwjh470Sq Aps0yqAPAycWPlCAbjOQR7N 86fo0A1 HCOoLOEcYBH1vCX4sP3kbXk nbjogbGVmdDsgdmVydGljYW hzZLgjM390ORRgjBpzSyCjs WVyOjwv dGQ+CS00mu38G9KkFkqaLui 4PMWiWKR6eRR2rR4pPTEiKY ulj9O1xMM7K5AotpEvrl3mc 2xsYXBz ZTo (more content not included)... Normal [facility] Inpatient Patient Summaryon 08-26-2021 Inpatient Patient Summary [place] [id number] Patient Discharge Instructions Name: YASMIN JONES MIGUEL : 1970 Patient Address: [address] [place] [address] Primary Care Provider: Name: RANDY CALLE After you are discharged if you find you have any questions, please, call [phone] ext [phone] to speak to a nurse. Discharge Diagnosis: Internal derangement of left knee Prescription Information: If you have been given a prescription for narcotics, seek immediate medical attention if you have any difficulty breathing or any sudden status changes such as confusion and sleepiness. If you or anyone you know is experiencing suicidal thoughts, mental health, alcohol and/or drug addiction problems; contact the [facility] 22/09 Crisis Hotline -Text [id number] bz 395324. If you received any narcotics, sedation, or [...] business decisions or sign any legal documents [facility] would like to thank you for allowing [...] Have Not Changed Other Medications acetaminophen-hydrocodo ne (!-Congress 5 mg-325 mg oral tablet) 1 tab(s) Oral Every 6 hours as needed as needed for pain. carvedilol (carvedilol 12.5 mg oral tablet) 1 tab(s) Oral 2 times a day. cyclobenzaprine (cyclobenzaprine 10 mg oral tablet) 1 tab(s) Oral At bedtime as needed for spasm. hydroCHLOROthiazide (hydroCHLOROthiazide 25 mg oral tablet) 1 tab(s) Oral every day. potassium chloride (Potassium Chloride (Blz-Kexp-Wup 10) 10 mEq oral tablet, extended release) [...] you can keep with you. acetaminophen-hydrocodo ne (!-Congress 5 mg-325 mg oral tablet) 1 tab(s) [...] Oral every day. potassium chloride (Potassium Chloride (Rkx-Fvwz-Sev 10) 10 mEq oral tablet, extended release) [...] flow is (more content not included)... Normal [facility] MAGR Intraoperative Recordon 08-26-2021 MAGR Intraoperative Record MAGR Intra-Op Record Summary Primary Physician: Hua Oglesby DO Finalized Date/Time: 08/26/21 15:08:30 Pt. Name: NICRUTHYYASMIN/Sex: 1970 FEMALE Med Rec #: [id number] Physician: Hua Oglesby DO Financial #: [id number] Pt. Type: D Room/Bed: / Admit/Disch: 08/26/21 [...] Role Performed Surgeon - Primary Anesthesiologist of Programmer Operator [employer]ical Control Record Time In 08/26/21 14:02:00 08/26/21 14:02:00 08/26/21 14:02:00 Time Out 08/26/21 14:56:00 08/26/21 14:56:00 08/26/21 14:56:00 Procedure Arthroscopy Knee(Left) Arthroscopy Knee(Left) Arthroscopy Knee(Left) Last Modified By: Jeannine Eid RN, Erica RN Baumer, Erica RN 08/26/21 14:54:01 08/26/21 14:54:01 08/26/21 14:54:01 Entry 4 Entry 5 Entry 6 Case Attendee Dorothy Archer RN CONTROLS DESIGNER, Laxmi Navarrete CONTROLS DESIGNER, Shanique CSFYumi Role Performed Programmer Operator Numerical Control Wheel Polisher Scrub Personnel Time In 08/26/21 14:02:00 08/26/21 [...] By Jeannine Eid (more content not included)... [facility] MAGR PACU Recordon MAGR PACU Record MAGR PACU Record Summary Primary Physician: Hua Oglesby DO Finalized Date/Time: 08/26/21 15:37:09 Pt. Name: YASMIN JONES/Sex: 1970 FEMALE Med Rec #: [id number] Physician: Hua Oglesby DO Financial #: [id number] Pt. Type: D Room/Bed: / Admit/Disch: 08/26/21 11:01:00 - Institution: PACU Case Times MAGR Entry 1 In PACU I 08/26/21 14:56:00 Discharge from PACU 08/26/21 15:30:00 I Last Modified By: Elvira Navarro RN 08/26/21 15:37:04 Finalized By: Elvira Navarro RN Document Signatures Signed By: Elvira Navarro RN 08/26/21 15:37 [facility] MAGR Postoperative Recordon 08-26-2021 MAGR Postoperative Record MAGR Phase II Record Summary Primary Physician: Hua Oglesby DO Finalized Date/Time: 08/26/21 16:25:07 Pt. Name: YASMIN JONES/Sex: 1970 FEMALE Med Rec #: [id number] Physician: Hua Oglesby DO Financial #: [id number] Pt. Type: D Room/Bed: / Admit/Disch: 08/26/21 [...] Signed By: Elvira Navarro RN 08/26/21 16:25 Normal [facility] Preoperative Recordon 0 08-26-2021 [facility] [place] MAGR Pre-Op Record Summary Primary Physician: Hua Oglesby DO Finalized Date/Time: 08/26/21 15:18:23 Pt. Name: YASMIN JONES MIGUEL RosenO.B./Sex: 1970 FEMALE Med Rec #: [id number] Physician: Hua Oglesby DO Financial #: [id number] Pt. Type: D Room/Bed: / Admit/Disch: 08/26/21 [...] By: Elvira Navarro RN 08/26/21 15:18 Normal [facility] Operative Report - Surgeon/P aster [...] on: 08/30/2021 13:39 EDT] Hua Oglesby DO [facility] Patient Handouton 08-26-2021 Patient Handout POST [...] be done to rule of a DVT. [facility] Progress Note - Nurseon 08-01 Progress Note - Nurse Pre-op call done, instructed to arrive @ 1100 on 08-26-21, NPO after midnight, and need for ride to and from hospital-verbalized understanding. [Electronically Signed on: 08/23/2021 13:36 EDT] Carolina Painter RN [Verified on: 08/23/2021 13:36 EDT] Carolina Painter RN [facility] 2018 Novel Coronavirus (CoVI D-19), KYLE LCon 08-22-2021 SARS-CoV-2 (COVID-19) RNA KYLE+probe Ql (Unsp spec) Not detected Invalid Interpretation Code Not Detected [facility] Comment on above: Order Comment: [id number] [facility]# [phone] Result Comment: This nucleic acid amplification test was developed and its performance characteristics determined by [employer]. Nucleic acid amplification tests include RT- PCR [...] detected) result in this assay. Performed At: [address] [id number] José Manuel Chery PhD Ph:[phone] Performed By: #### 6 [id number] ####[facility] ([facility])[address] [place] [address] Coding Summary 08-15-[address] [facility] LtkgedmyKKn2sIa+PGhlYWQ +BB6RWPQoT72iaVSgwS1RX6 tNFL1KLFJQGPLDFP2KZV1nd ZN7IVjuU1QvqtCj NmxqdYWcGU72KDw5BEC6iQl eQWnpfC0wmDJpO6x6McZjAJ 18jE10JTszYUNaQoV1LyWyi jsgbWFy J6egJmSdrDBpOtm+PHRhYmx lIHdpZHRoPScxMDAlJyBzdH bgEA6dZf2rVDUzNRMwfZalz HNlOiBj e1cbWDIiUSnjZB9oiDslS8T jpDF1MNNco0q6Ig69lLG+PH XzKXG0zWlvYYrfo164BsGqk 5qqJZP8 pLHqFKexZXZ4W47cm7O5CFU mHORrJMB3cEX8dP5qkXdnrw fbX0ZteBOlXnX5GYI4eUPaw E7qqBbs gscukU1eIco+A31YEZ7FPER ZGW5PAzb8H5GyRpbqvKW+PC 94MICwIQ82xANxlFSub0zov Qy8PbCx WRVsNFQ1rObqYBlzw9RkQMX pO70gbBHwp5I5RIRebJwckE OiBnHsjGJ1oB7vNTuagvltd 2hvdzsn Xnprl6effa96mV91F71pOMr xGBYyCNI6LBZrDGRgaHftid 2ebC7dCo8+NCnip2kqr5kxl Gb0RjYo PLGeiaDleYnmIUE1z9BgXc3 5C1TgmDeuj9QwCet0qd38uT Vbt9G6lUP0SOhqSSKuwC4mC WxlZnQ6 CWFbDeCcgG48hLPzWHhkTj8 ykLrwfCovHM0wZBHbbvakMA ZmxB1mHLXkuODvkHgfWU0nG TBpbjtm l710KpVxIHM7OGHmzVRaM0R niM5vJnGhWTSsSASpR1AwhH ZbHFcuN431BUtqFwF8KCSkr qJbY8By QQIhuRewKnI3u5B8Dj2Eu4Q jrkaxMKS5RBhfOYM9WeQ4Au PgPrK3K1CwLxb4ISZauZjkI O7pV2Iz RZArenxtagajtNX9VYJvXBG ruZ84sPLeQXciUt3zv9S4p6 86BHBrRNPldO84Ni7jpRryL TBwdCBU cU5zvugah5mtyznmZvBsSJY pVOk1YNa0TAHhpZdfLmQjHZ I9EpN8NZN8sMIlzF0mjSquu atgjK5w Oyc+R93hvR3fNBG6PWR1dwh bXBWyjuBsDR49SM92W3MmIc wvdGFibGU+PGRpdiBzdHlsZ I4dUvDb s6jyz6IqPBxjH1YeEFYoOLt bXag1AXSkABO3xUI6yV1lVW TsJCeci4Z6rOY2Y8HrazSvr v5yz8fq YISmOEygB38fmRLkb2A5RLR thAT7VNDndFhnIhQxoT45Gm c+CKPnmDfee2YfSzhcg4dcz 2imbIb8 BsKrUQSpdhFuxZpmWUN2d9X gJe75U76pEIblKOMaHHZrGT IqFKMclAgibf4bgC5uUt6+P GNvbCB3 aIX7sP4vFMFiOxP2VBgdG67 5FhOqsENhFipfz7mdj2lumT i1SoMrYGFwenSoiMhrZBU2j 1ShHi21 O18jYTaiGDEoKQIcKFUvJHM pcCzigd6alQ1rHn0+PC9jb2 qrqp67sS60rMY+FJVjXJY6f WxlPSdw EJLmtM0sVFsdRmO0NOVzSnW dgG11mFUdPPmaGo7dkFrbzY ejYQ1tXRCaeebnk862KyKez 2xkIDEw nKVmNWlaSUN9H14zq4I6SNR fELUpZLI1uIW6qS3crPijkp ogbGVmdDsgdmVydGljYWwtY MakC509 IHRvcDsnPlBhdGllbnQgTmF jKLp9D0GnJxa5BOYxwIihQO 5pjLTkQGovIv7guJkkhUvqB L3oRPIf xfsci787MqCid3gkMHFqcGL rHAnyUZX7W96qn8V5EYTnVI FmJNM5tOQ0vP0rdVuhsangv GVmdDsg qlNdxQmsEXebYWspI587LWW rlYyeGdVrwiIjHZOdxDP2CI 08EN46qVFea2Y8fIU2X8RbY GRpbmct qntprHF5XOAgVFBdcV06Bg9 gfMqjRg8oDWWgCRS8TFGheD CbA1WikX7pQrCyJMHgHAAfO 3RleHQt WAdlC384WAilNvL5QQUwaiB cB7MoNGJtsRfyFvD2k5J8Qz 5AH2Y2FA31XN69xLXsm0S9f JI3E8Cu SXDreocsehzpwCX2TSZsSAR wmT49Xy3bbCptMh4dFOQcJZ J1XHPdtDRsI7UjpU6hCxByB DAwMDAw V7NppVVsASenS778BLjbJyX 0VWHqsdByG2BxEQDyhAsyLk R4c8W2Qa5CUMy0VV53XP19c YZyu0T5 lXS5A2RgKBCbjfrkdohdzRT 8ADTsSPMxtB16El4wmBjzBm 1dIVHwISG9MTZdsIQcL1Uij K8hFhBq LYWvYKLwM7QilTNxZJhwV06 7HOjsEwB1DXOvxoOiE2ThON JxvHvqLuT9r0K3Lu2TABDdI G70ZXO8 iWD6GB92MF31T9SsMusswFU ibGU+PHRhYmxlIHdpZHRoPS ocCKLcLtVrlCupBG2hVf6gE GVyLWNv fWmbfXFsOyQsg8yyPMYqWBe iVE4bqEkaO3KvvGJ7SWEst2 k9Bw36Y60zN2RkoFM+PGNvb EJ6pJH0 zN4dMrSxUuE2KBlgG053RtD kqDTpJbgik4lnf4cbwRv7Ne J1PVLjobSitLjrORC8x6DgZ z05M06x IHdpZHRoPSIxNSUiIHZhbGl szj0mfD1mQd9+WLKefBQ8qC M8wZ0iFmEuJyZ1GBgyQ613X nRvcCIv Lexrd3eoh8zxwHf4BcHcCMF tdgVfqFgxIOI9g6IdLm38M8 KetXjkq0EmJpe4bp61rOFtm 5A1fGV2 Y1KbYJRyiirfmBNfpVkkSO7 kETXkdcmlXMKpyW5kMNScK5 a5SzOkAcP7ESroS2OvuxQ4C DEwcHQg HIzmKMA8N86ap3C9SAOrFUA pBTL7zHV9yA9rvAyhjylgoY VmdDsgdmVydGljYWwtYWxpZ 246IHRv yWwsUBDzwX4rSJSgiFMvcJb qRA4rXYNqxzvxKgkCGD3JIw wgRUxJWkFCRVRIIEFOTjwvd GQ+PHRk NEJ1bIbpDMkuGNCgtR4cCST wX7c7WfPaZcR7DHbpB0IbJN XgtqgtEd42sO0mHrCrIbC4G XayZ3Sb mdO5BIUxpWBdXNxsDIR6J48 vh7P6QDBlATFvHOZ1qMZ1mT 1hbGlnbjogbGVmdDsgdmVyd GljYWwt ICckK567NJBobZvxYjB9ZsJ aTzY1AzZ2D6ZoZzh0XXAsqB bfGV5yaSBpEPesXg1vuVuso NonDK2x PPEsyduhQRRrzC4lOXClnXV hbJdnTE3yRGPbotfkd636Wq RpOGU4YQElzBLdC8BiuC1gT iAjMDAw UHLuU1ZizPNfUAglN452FRh qZmZ2TOVodlDhI4UrVKIfrC xsHyT4v1K0Ne85SCVHWDGzy zwvdGQ+ XLFyDHV3nZzuJEnfZTUrnL6 lUIAhU7p9UjZrAzM3JPkxC9 DjSXPbuijlGq71gC6sGaCcL uU3QOnw L0HvtsM8TFUwrMQmRBsuGZP 3X88sk9E9GKJmWFGfMYC2tI Y4aB7sbBnnaisrmEPhcEqql mVydGlj DOtjLDhpV593NCZrdGctMzR FTUFMRTwvdGQ+QBBbZQQ0rG pwDVwcCNTygV0pAYRjV2p5Q iAwLjA1 LZjgZ6LiBMPxdvxsJo65uN6 yZiQjQsN0ZUowP2XhybX5EM OxuFVaFAbrCWG2H95pv1O0B CMwMDAw XDZ4iZI0kM0rvJiyefborCJ mdDsgdmVydGljYWwtYWxpZ2 52VLJgoSbcGg4EZN04WJ74U 3RyPjwv dGFibGU+PHRhYmxlIHdpZHR cVLdmDOYgMqEywJzfWV4bOv 9yZGVyLWNvbGxhcHNlOiBjb 2xsYXBz QNvnEG8krOhfY7UefFR1CYD cf4e0Tf22K56bQ1PesYB+PG JnzOP2qHY8nK0pToXhOdX7D KkeM727 QxKnwZJaVclkk9yse7phzPv 2PaCzJYNjsyKyiMqfTZS8o1 XtQv17O50zZDxmYPEjFTYxO CUiIHZh mQkytl2hzL3gJs8+PGNvbCB 9nLC1lY3sXlLsOnY6FNyeJ4 16ImYkdLNiRoqeW83cF9Ssb XA+PHRy Ayk7MQCwkJhdKR2csJCmNUx zBw1uKJW8KjBjMsGcXHpnZ2 ZrMRDsfdmjvmvtlHK7BORdL DUwaW47 Ou5hgEmnDb9zTDYkFPY5UQG wzKOkI4FazS7dEnTiMNEnUH OlR2TdwAYhMFowZ946IFgeP pF3JUIb abEeO5IwBJDnrSqmJfO9w8R 3Tn2TdHztwQGgNZ8xAwReER y7O0ArOrm9XLUdxJrzIE0kr GFkZGlu Ky3cwNwroVicSC8yAHHlnaz mw356FpPbg5ejXXMuvHSuDQ tyDJW8F68sk1F9GPNyUAZsR RR0qRP9 qV3fmFetbxhedNUatMontjY lpTvkGUnaFHnjY567NUWuuZ nlSiIVBif5V8GvXph5VQFlf RrqJX9t jGPbWMsdEp9yfCnvmKmoJP0 oKBVpsngzo961BpVbg1apYR OykGZlDTazEGE3Y42ad0W0G CMwMDAw BGH3hCA6jR2qeNkespkesLX mdDsgdmVydGljYWwtYWxpZ2 09ATDraIrnJi0XZdi0L5IbJ lq3ELYp fCgzXB7ghEQeWFrdKu6jvBq tiPumAZ6lYVMykbvcd709Bi Rko2kfYRThyKRuEElwPVM8Y 69jg4M3 LAUkUTNkTME9kCZ2uZ8vsRv nbjogbGVmdDsgdmVydGljYW pbEUjfG827XDBetLkiShIdj WVyOjwv dGQ+EX40vy55Y9AfBvesCxr 1MVMeIZK1bQM5oC1wPYBjQB jyw6U4yQO9U5UajpDzom8gb 2xsYXBz ZTo (more content not included)... Normal [facility] Inpatient Patient Summaryon 08-15-2021 Inpatient Patient Summary [address] [address] Patient Discharge Instructions Name: LAKIA JONESROSS RIVERA : 1970 Patient Address: [address] [place] [address] Primary Care Provider: Name: RANDY CALLE After you are discharged if you find you have any questions, please, call [phone] to speak to a nurse. Discharge Diagnosis: Prescription Information: If you have been given a prescription for narcotics, seek immediate medical attention if you have any difficulty breathing or any sudden status changes such as confusion and sleepiness. If you or anyone you know is experiencing suicidal thoughts, mental health, alcohol and/or drug addiction problems; contact the [facility] 22/09 Crisis Hotline -Text 4HEWY to 243881. If you received any narcotics, sedation, or [...] business decisions or sign any legal documents [facility] would like to thank you for allowing us to assist you with your healthcare needs. The following includes patient education materials and information regarding your injury/illness. YASMIN JONES has been given the following list of follow-up instructions, prescriptions, and patient education materials: Follow-up Instructions With: Address: When: MYESHA VINSON [address] [place] [address], [place], [place] [id number] Business (1) 09/03/2021 9:15 AM With: Address: When: RANDY CALLE [address] [place], [place] [address] [address] [facility] (1) Medications During the course of your visit, your medication list was updated with the most current information. The details of those changes are reflected below: Medications That Were Updated - Follow Below Instructions Other Medications Updated: potassium chloride (Potassium Chloride (Hci-Odgp-Ruw 10) 10 mEq oral tablet, extended release) [...] Oral every day. potassium chloride (Potassium Chloride (Tsm-Oekv-Upv 10) 10 mEq oral tablet, extended release) [...] for Disease Control and Prevention October 2013 [facility] Patient Handouton 08-15-2021 Patient Handout [facility] Progress Note - Nurseon 07-31 Progress Note - Nurse Dr. Small reviews PAT information and testing results. Ok to proceed, no orders given. [Electronically Signed on: 08/14/2021 12:02 EDT] Dary Gallegos RN [Verified on: 08/14/2021 12:02 EDT] Dary Gallegos RN Normal [facility] .Auto Diff 1on 08-12-2021 Auto [place] % 8 % Normal 12 [facility] Comment on above: Performed By: #### 1 [id number], [id number], [id number] ####[facility] (DEFAULT)[address] [place] [address] Baso Abs# 0.1 x10 Normal 0.0-0.2 [facility] Comment on above: Performed By: #### 1 [id number], [id number], [id number] ####[facility] (DEFAULT)[address] [place] [address] Basophils/100 WBC (Bld) 0.9 % Normal 0.2-2.0 [facility] Comment on above: Performed By: #### 1 [id number], [id number], [id number] ####[facility] (DEFAULT)[address] [place] [address] Eos Abs# 0.3 x10 Normal 0.0-0.4 [facility] Comment on above: Performed By: #### 1 [id number], [id number], [id number] ####[facility] (DEFAULT)[address] [place] [address] Eosinophils/100 WBC (Bld) 3.9 % Normal 0.9-4.0 [facility] Comment on above: Performed By: #### 1 [id number], [id number], [id number] ####[facility] (DEFAULT)[address] [place] [address] Lymph Abs# 2.6 x10 Normal 1.3-2.9 [facility] Comment on above: Performed By: #### 1 [id number], [id number], [id number] ####[facility] (DEFAULT)[address] [place] [address] Lymphocytes/100 WBC (Bld) 30 % Normal 14-48 [facility] Comment on above: Performed By: #### 1 [id number], [id number], [id number] ####[facility] (DEFAULT)[address] [place] [address] Woodruff Abs# 0.7 x10 Normal 0.0-0.8 [facility] Comment on above: Performed By: #### 1 [id number], [id number], [id number] ####[facility] (DEFAULT)[address] [place] [address] Neut Abs# 5.0 x10 Normal 1.5-9.2 [facility] Comment on above: Performed By: #### 1 [id number], [id number], [id number] ####[facility] (DEFAULT)[address] [place] [address] Neutrophils/100 WBC (Bld) 58 % Normal 44-88 [facility] Comment on above: Performed By: #### 1 [id number], [id number], [id number] ####[facility] (DEFAULT)[address] [place] [address] Standardon 08-12-2021 eGFR Non AA >60 Invalid Interpretation Code [facility] Comment on above: Performed By: #### 1 [id number], [id number], [id number] ####[facility] (DEFAULT)[address] [place] [address] eGFR AA >60 Invalid Interpretation Code [facility] Comment on above: Result Comment: Medical Billing Assistant medina Kidney disease could be indicated at eGFRs of less than 60 ml/min/1.73m2. Kidney Failure is indicated at less than 15 ml/min/1.73m2 Performed By: #### 1 [id number], [id number], [id number] ####[facility] (DEFAULT)[address] [place] [address] Anion gap [Moles/Vol] 14.0 mmol/L Normal 5.0-19.0 [facility] Comment on above: Performed By: #### 1 [id number], [id number], [id number] ####[facility] (DEFAULT)[address] [place] [address] Calcium [Mass/Vol] 9.6 mg/dL Normal 8.9-10.3 [facility] Comment on above: Performed By: #### 1 [id number], [id number], [id number] ####[facility] (DEFAULT)[address] [place] [address] Chloride [Moles/Vol] 102 mmol/L Normal 101-111 [facility] Comment on above: Performed By: #### 1 [id number], [id number], [id number] ####[facility] (DEFAULT)[address] [place] [address] CO2 [Moles/Vol] 25 mmol/L Normal 21-32 [facility] Comment on above: Performed By: #### 1 [id number], [id number], [id number] ####[facility] (DEFAULT)[address] [place] [address] Creatinine [Mass/Vol] 0.72 mg/dL Normal 0.60-1.30 [facility] Comment on above: Performed By: #### 1 [id number], [id number], [id number] ####[facility] (DEFAULT)[address] [place] [address] Glucose [Mass/Vol] 100.0 mg/dL Normal 74.0-118.[address] [facility] Comment on above: Performed By: #### 1 [id number], [id number], [id number] ####[facility] (DEFAULT)[address] [place] [address] Osmolality 275 mOsm/L Invalid Interpretation Code [facility] Comment on above: Performed By: #### 1 [id number], [id number], [id number] ####[facility] (DEFAULT)[address] [place] [address] Potassium [Moles/Vol] 3.4 mmol/L Low 3.6-5.1 [facility] Comment on above: Performed By: #### 1 [id number], [id number], [id number] ####[facility] (DEFAULT)[address] [place] [address] Sodium [Moles/Vol] 138.0 mmol/L Normal 136.0-144.0 [facility] Comment on above: Performed By: #### 1 [id number], [id number], [id number] ####[facility] (DEFAULT)[address] [place] [address] Urea nitrogen [Mass/Vol] 10 mg/dL Normal 8-26 [facility] Comment on above: Performed By: #### 1 [id number], [id number], [id number] ####[facility] (DEFAULT)[address] [place] [address] Urea nitrogen/Creatinine [Mass ratio] 14.0 mg/mg Normal 4.6-16.2 [facility] Comment on above: Performed By: #### 1 [id number], [id number], [id number] ####[facility] (DEFAULT)[address] [place] [address] CBC w/ Auto Diffon 2 Erythrocyte distribution width (RBC) [Ratio] 14.6 % Normal 11.5-15.0 [facility] Comment on above: Order Comment: CBC C LOTTED. PATIENT CALLED BACK FOR RECOLLECT. Performed By: #### 1 [id number], [id number], [id number] ####[facility] (DEFAULT)[address] [place] [address] Hematocrit (Bld) [Volume fraction] 35.0 % Normal 33.7-40.4 [facility] Comment on above: Order Comment: CBC C LOTTED. PATIENT CALLED BACK FOR RECOLLECT. Performed By: #### 1 [id number], [id number], [id number] ####[facility] (DEFAULT)[address] [place] [address] Hemoglobin (Bld) [Mass/Vol] 11.0 g/dL Low 11.3-15.9 [facility] Comment on above: Order Comment: CBC C LOTTED. PATIENT CALLED BACK FOR RECOLLECT. Performed By: #### 1 [id number], [id number], [id number] ####[facility] (DEFAULT)[address] [place] [address] Instr WBC 8.6 x10 Invalid Interpretation Code [facility] Comment on above: Order Comment: CBC C LOTTED. PATIENT CALLED BACK FOR RECOLLECT. Result Comment: CBC RECOLLECTED @ 08/12/2021 15:15:27 EDT BY ALS. Performed By: #### 1 [id number], [id number], [id number] ####[facility] (DEFAULT)[address] [place] [address] Man Diff? Auto Normal [facility] Comment on above: Order Comment: CBC C LOTTED. PATIENT CALLED BACK FOR RECOLLECT. Performed By: #### 1 [id number], [id number], [id number] ####[facility] (DEFAULT)[address] [place] [address] MCH (RBC) [Entitic mass] 25 pg Normal 24-34 [facility] Comment on above: Order Comment: CBC C LOTTED. PATIENT CALLED BACK FOR RECOLLECT. Performed By: #### 1 [id number], [id number], [id number] ####[facility] (DEFAULT)[address] [place] [address] MCHC (RBC) [Mass/Vol] 31 g/dL Normal 26-37 [facility] Comment on above: Order Comment: CBC C LOTTED. PATIENT CALLED BACK FOR RECOLLECT. Performed By: #### 1 [id number], [id number], [id number] ####[facility] (DEFAULT)[address] [place] [address] MCV (RBC) [Entitic vol] 79 fL Low 81-100 [facility] Comment on above: Order Comment: CBC C LOTTED. PATIENT CALLED BACK FOR RECOLLECT. Performed By: #### 1 [id number], [id number], [id number] ####[facility] (DEFAULT)[address] [place] [address] Platelet 491 x10 High 138-427 [facility] Comment on above: Order Comment: CBC C LOTTED. PATIENT CALLED BACK FOR RECOLLECT. Performed By: #### 1 [id number], [id number], [id number] ####[facility] (DEFAULT)[address] [place] [address] Platelet mean volume (Bld) [Entitic vol] 9.4 fL Normal 6.3-10.2 [facility] Comment on above: Order Comment: CBC C LOTTED. PATIENT CALLED BACK FOR RECOLLECT. Performed By: #### 1 [id number], [id number], [id number] ####[facility] (DEFAULT)[address] [place] [address] RBC 4.41 x10 Normal 3.70-5.30 [facility] Comment on above: Order Comment: CBC C LOTTED. PATIENT CALLED BACK FOR RECOLLECT. Performed By: #### 1 [id number] ####[facility] (DEFAULT)[address] [place] [address] WBC 8.6 x10 Normal 3.5-10.5 [facility] Comment on above: Order Comment: CBC C LOTTED. PATIENT CALLED BACK FOR RECOLLECT. Performed By: #### 1 [id number] ####[facility] (DEFAULT)[address] [place] [address] MRI Knee w/o Lefton 07-27-19 MRI Knee [...] Michael Pappas on 07/28/2021 1331 Normal [facility] [employer] BASIC METABOLIC PANELon 05-01 BUN/CREATININE RATIO NOT APPLICABLE Normal - [facility] Comment on above: Order Comment: FASTI NG:YES FASTING: YES Performed By: #### 1 [id number] #### [facility] [address], [address] [place] [address] International Account Representative: Heraclio Miller MD Calcium [Mass/Vol] 9.0 mg/dL Normal 8.6-10.4 [facility] Comment on above: Order Comment: FASTI NG:YES FASTING: YES Performed By: #### 1 [id number] #### [facility] [place] [id number] International Account Representative: Heraclio Miller MD Chloride [Moles/Vol] 106 mmol/L Normal 98-110 [facility] Comment on above: Order Comment: FASTI NG:YES FASTING: YES Performed By: #### 1 [id number] #### [facility] [place] [id number] International Account Representative: Heraclio Miller MD CO2 [Moles/Vol] 27 mmol/L Normal 20-32 [facility] Comment on above: Order Comment: FASTI NG:YES FASTING: YES Performed By: #### 1 [id number] #### [facility] [place] [id number] International Account Representative: Heraclio Miller MD Creatinine [Mass/Vol] 0.73 mg/dL Normal 0.50-1.05 [facility] Comment on above: Order Comment: FASTI NG:YES FASTING: YES Result Comment: For patients >49 years of age, the reference limit for Creatinine is approximately 13% higher for people identified as -Emirati. Performed By: #### 1 [id number] #### [facility] [address], [address] [place] [address] International Account Representative: Heraclio Miller MD eGFR NON-AFR. CROATIAN 96 mL/min/1.73m2 Normal > OR = 60 [facility] Comment on above: Order Comment: FASTI NG:YES FASTING: YES Performed By: #### 1 [id number] #### [facility] [address], [address] [place] [address] International Account Representative: Heraclio Miller MD GFR/1.73 sq M.predicted among blacks MDRD (S/P/Bld) [Vol rate/Area] 111 mL/min/{1.73_m2} Normal > OR = 60 [facility] Comment on above: Order Comment: FASTI NG:YES FASTING: YES Performed By: #### 1 [id number] #### [facility] [address], [address] [place] [address] International Account Representative: Heraclio Miller MD Glucose [Mass/Vol] 85 mg/dL Normal 65-99 [facility] Comment on above: Order Comment: FASTI NG:YES FASTING: YES Result Comment: Fasting reference interval Performed By: #### 1 [id number] #### [facility] [address], [address] [place] [address] International Account Representative: Heraclio Miller MD Potassium [Moles/Vol] 3.7 mmol/L Normal 3.5-5.3 [facility] Comment on above: Order Comment: FASTI NG:YES FASTING: YES Performed By: #### 1 [id number] #### [facility] [address], [address] [place] [address] International Account Representative: Heraclio Miller MD Sodium [Moles/Vol] 140 mmol/L Normal 135-146 [facility] Comment on above: Order Comment: FASTI NG:YES FASTING: YES Performed By: #### 1 [id number] #### [facility] [address], [address] [place] [address] International Account Representative: Heraclio Miller MD Urea nitrogen [Mass/Vol] 12 mg/dL Normal 7-25 [facility] Comment on above: Order Comment: FASTI NG:YES FASTING: YES Performed By: #### 1 [id number] #### [facility] [address], [address] [place] [id number] International Account Representative: Heraclio Miller MD Coding Summaryon 01-28-2021 Coding Summary [employer] 64 KegdknqbNOm8hGx+PGhlYWQ +[id number] TknnoRExPT28YBu1WQT4lPm gZMujoD6ahUMiO2u2OjLlNC 08kR53HLylCUUwPxA1ThOpt jsgbWFy G8aqNxCzyOIeJmi+PHRhYmx lIHdpZHRoPScxMDAlJyBzdH idCB4iDe5dJLVsHQHboYlqq HNlOiBj o6adNNEiLVkwAZ4kuSfiX9J xjWH9CFCjg0z6Pi37sPJ+PH TmBOC2tEflHMwfd184UhDon 6kiOXF5 hPMeMJrrHVC6M36io9H7TIF uHSBrGIM5cHG8yT7icVyavd ugX6CsmBCePrA5RME6rMUql J7tjQwp csmuhG6vCri+Z93FEP6AVDM IYH7ZMmq7N5HlGiljhPT+PC 18SDZuKW08zNVdoUBzp8owz Rl6RlFk TTToLIS6xIwuDVepe7OrTKR bI53diLZuv8E8NHHzhBtwyK ZuUoKwrKE0bM9eWXgyzdhbi 2hvdzsn Bbdgx3tmdh71oZ19C35qAYf tORZiYIB8LDJnVRHivKvdsq 3adB1aVs0+HXtwk2dus1kwy Sz3SqXn HFIpqvKpwPsjHXV8q0WfQs3 1N5MlcCrni6CcUns1jk09eE Ptk0B3wKC4OSlyTFLgzH8wP WxlZnQ6 EJCuJjGibN21wLCwAZroYt8 koIqnrHmcAT6cIQNpeoobBU SpoE8tZUKayZPqaNqjZD0vE TBpbjtm p931WpPoAWY2KWPirIFhG7K ixQ1eXdEpEKSxNJNyA6VgdH EhQOwuB551YAnsXqS9FLQqo rUbR7Ck MAGemUpsDnR0y1I8Cx3Oi7F xaksgKIM9MUzvIAFlEuS9Tk DlDeE6T4XsLgq3LGElmAfeH V5zI7Lv FQClloebwvbkqSD9RWJnMMV nfU98qIDrSRtvBl0pv9W6e7 58LZZvGUWixF92Ct9iwIdtK TBwdCBU mY0flrhow2zcsnduXuHkWIL eWYz1YYg2JGGgtRvvHvSrJM I7MkR9EYW2lIInyD8toJqrw pprmW2i Oyc+P46zeO8sPXG8XZN1iws cNWIumdByAP14GX83W9GjDc wvdGFibGU+PGRpdiBzdHlsZ K3dBtAw u5cnn0QiPMscQ0SnNJPkOSy nKvb1DYDwAFE0tZS8kY3tHG PuPLuvk2D2rGS1J2AqgjUdd p0jj3hb HWXkCQojU15tcOObi0O0GWM dnUM3HAZadHkqKhPklO43Ek c+BKXjzVtnq6ZdAejgm1xsx 7ilpFl2 BiOcJUVbltFapQatIJC1i4U bQy44Q39jMOstXGLhXQVpUQ MrCFTuzRtwkr5fjT5eVc6+P GNvbCB3 mDS9vQ7aWTChCuW7GWjtU48 5HoViwWGaPuhgj4kkm7ooqQ h5HsOiVVMdyaEijPsrXQX8m 5GvQe85 N72yXUejUSAdDGRnLXDxVAH sfTodea0scX0uIz6+PC9jb2 jefy73nB31mGF+RAYmXIV3x WxlPSdw TCHrpM0kZTdgHvY9UEJiJhM fuZ23pXRwCXynOx5jvDcbnX bxUP8iAGPqrzhfq483TfPpb 2xkIDEw lAJnCOwfKLB7Z50pb1L3WJX sUEHmSPJ8bXF4zH9ytBejks ogbGVmdDsgdmVydGljYWwtY DuwN832 IHRvcDsnPlBhdGllbnQgTmF eYEu6P0IxWyo3XIPjgDhlNT 1hdXOeHGjzPh4nwWxrbLgsP A4gKGKf sogaw600YdUkm5isCSZedRF qDKiiRAQ1T82to5O8YOWxJS FeFJA3dBA0zI1ugAnftunsy GVmdDsg daEbdHyqNYygPJdwY381LKM xnHwySoAsvfVqWPVfnBR3FL 56WN08kPXij9E4kMZ4S5PeU GRpbmct bpgpsVP5ZEMvNGIqlI14Ou8 vhXzfWi3lDRJvSUR2LXDqoZ JlH7HzdH6tCkIaQFIwGGGtA 3RleHQt SZofQ947XKadHpX4IUAungZ kN4QvOZBfqXeiVhZ0n7L6Uv 8MG0D0IZ65UW02pSWzl7P2v IE5M5Fh LGIrqpkzyavrtLY8ITAxIZT ylH88Ne9mjBqcXj4cJBViAI T4KOLsoQLyD4MgeC1oUgMsY DAwMDAw A9BpvCSkLYouQ815XXsqKwE 2VWXvwhLrO2IvJUDpxGcrGz Q7n2C2Re5VELp7YM56JV52k AOco0N8 bRA2O2QzEHWqxennnszfbIJ 8QGGrLIMprV94Qx0azFnrNm 1xGEVbOVJ7IXKqjQXwH1Urv P8dGtHi RHKrNKQlR3VprGOaPAzhN05 0FSkfGbD5BJUgvcMjR8UdCW NmuEroMkP9w0N6To1GOFNmY J44DIG9 qBQ3EZ62XB58U1FaCmvxsTI ibGU+PHRhYmxlIHdpZHRoPS adBHLxFpXewDtzEE2aQx5uW GVyLWNv eAkptIXiBaAkg0woPBCfISz hFK9fgVfpT9MemSO1XJWsg1 o9Ro02D43iI1ZagPE+PGNvb YB9tHK2 jB6vQeNgIqF4HMwnE863BvS oyRLaBodyf5yok8pzrAy4Io U9MLIoheFikYwwPKN3q7LsK m15F10g IHdpZHRoPSIxNSUiIHZhbGl qtl8loB4xPl9+IAVczCX5qK T8gB2yRyUcSpI3RLubX393F nRvcCIv Rdxoc3bwv3guxQq0OlHlJGP mmoSegOigBFT5e5WyLt73B0 KswCzqn0EhCag8jx53xFWen 6B7xIB1 R4LnYZYfijyuuBOjeUfmHE1 fDJOrdarmGLJehI9hVJEnD6 j2NiUyFgJ3XFyyL8KemuB2C DEwcHQg GQmyWGL7A43nm4D0BUHgHNG jZNC6cJW3dL2reNcpuxhoiL VmdDsgdmVydGljYWwtYWxpZ 246IHRv hPzhFQKpwV0bMQXydVBbkSg gAA0tYLNyqvtkOohRJY0DNy wgRUxJWkFCRVRIIEFOTjwvd GQ+PHRk FSD3cLuaUCkpEODybC0sCKR wL4q1ZaUzLuV4XBumL7IeNS FtnyyuVm25tI4sHkNoBbR9J OjaK3Pw gkL5REDfbFWvQHjmZES7G96 hl4T3KDTgVNPcBXQ6nOO7wV 1hbGlnbjogbGVmdDsgdmVyd GljYWwt GXefR587GKSdaIcaWoR3OuR vEqJ3HjM6R6SqRdj9KPVehJ waFE5peVHcTZlnRv2toJlzn EpoIX3f HNEdgqqdLPScnS1pLKYvpLU lnPjjIP8eLPQjcjqug807Am MoDJY8JGXsrSHwD0ZnrW6vY iAjMDAw XQCnM4NwlTJlOOyvQ093UBx zZzL6QWGzlsNxZ5QlVHWqcY vcRxV8n1N9Jg90BVMJTMXgy zwvdGQ+ EPXoYGO3aIioDLkkOKRgrA3 gXFQmZ0y0BfAtHkM7MXuyG9 OkGKQcjkpmPa76fX1dWqTsE mD0SVqm S6NrxwL2XRXnrBGzMNxoVZH 6G18rq3K3MESlXXJmQGU4tZ U2xO8oiTwmjzvtlXSnpDhvd mVydGlj OFnpMOasK476JYWizYkwFsH FTUFMRTwvdGQ+OEUlWVK0lJ xjZSdcDNRufK2yFIStK1g2P iAwLjA1 WHejB5JdMTNriuucEk70qN8 qImRjBdN6IDstB3SwseH4YU TgfCDgLRitARX8F55ft6N0W CMwMDAw GUU8jUV3uT1vvKiglveuyZA mdDsgdmVydGljYWwtYWxpZ2 46IHRvcDsnPkRheSBTdXJnZ WD5ER63 XG61A9UiAavxuFAnzMM+PHR hYmxlIHdpZHRoPScxMDAlJy QmoJikHT2mTj6nCADuVBGtx GxhcHNl PqXfx6nyMABzMMmlFT7irUy eF3YfcGA1AFNoh7v4Hd35D3 2rW5AuxBC+ASMpcZF5hCQ7i Y5wYsJk IdP3RCscV037ChHctKGmDac bo2zho7ibvBs4JdWpAJFnzm SqtPsiGAA3r9XwFb13C88tC HdpZHRo YSBbFYHmZXZfwCnuhh9hrF0 wIi8+QGWoqWF2xFI8bN3iSn IzOkC0MEeqB389RmYzbIJbO jyiS96k B2WdlFB+EVSmJyy0ORYfjWd hRR9duOQmRByeJn8bPEV9El DeOwAqFUvgC1JyXTPnbtygz mlnaHQ6 NNOpWMQbzZ70Pw2qtUxfRq0 eUIWuMDT7VOUwmZVgQ0GltG 0fVmHxVBQrFQDkV6VhgUSuG VrqS175 ARifXxX6XLPhxcAkS6ZvKMP wlWjgHfY9m4O2Iz9HhLmroB JqKK5jOeHiZWo1X5DgRzp1P CBzdHls IC5acNPsRPodZl8hqXcqgEt sDG1wRAYxhlohc064MqElj4 ikLRHbcZUvBQsoMZJ4U79zh 6R1TCUe WHEbFKE3jJD5eJ0tgSiicny gbGVmdDsgdmVydGljYWwtYW paZ030SLNenIlbZdQEOim7I 1CqRsm6 TBZicVegEC4hfNPdWYdnMx4 lcYgmrNbzMQ7wDVUaawfmf1 27SlTxx7ilXSXugTVbXWyjI NC7T00f w5O8KRJzVFGiWZO2jSI7rN5 hbGlnbjogbGVmdDsgdmVydG fyNUhxOTtyG898NPVzoRuoU t8SQwz9 W6GwWuq3IIYktAzxFB8gsAM tRPqxHz8ezQvesBytFV6rVS Qnfmenk034QiUbg2owZPGjd HQgVGlt KPD6G13iz3G7CSCbPMIeRNP 1aKY1uP0mjDjnuetqwJOxdF setdAieQgkHFujYYdiL010D HRvcDsn PlBheWVyOjwvdGQ+XP76em1 2V6YiYueuLcq2NMAaXNY3bD U4sG1gIBAyFYzai7W0fPK3W 2JvcmRl ci1 (more content not included)... [facility] Consent Formson 01-23-2021 Consent Forms [id number]#1.00O TGTIFF [facility] MAGR PACU Recordon MAGR PACU Record MAGR PACU Record Summary Primary Physician: Hua Oglesby DO Finalized Date/Time: 01/23/21 13:00:07 Pt. Name: YASMIN JONES MIGUEL Garduno/Sex: 1970 FEMALE Med Rec #: [id number] Physician: Hua Oglesby DO Financial #: [id number] Pt. Type: D Room/Bed: / Admit/Disch: 01/21/21 06:05:01 - 01/21/21 10:08:00 Institution: PACU Case Times MAGR Entry 1 In PACU I 01/21/21 08:20:00 Discharge from PACU 01/21/21 09:04:00 I Last Modified By: Lisa Connell RN 01/23/21 13:00:04 Finalized By: Lisa Connell RN Document Signatures Signed By: Lisa Connell RN 01/23/21 13:00 [facility] Consent Formson 01-22-2021 Consent Forms [id number]#1.00O [facility] Discharge Instructionson Discharge Instructions [id number]#1.00O [facility] Telemetry Stripson Telemetry Strips [id number]#1.00O [facility] Anesthesia Noteon 01-21-2021 Anesthesia Note Patient: YASMIN [...] on: 01/21/2021 08:25 EST] Gen Jean MD [facility] Anesthesia Note Patient: YASMIN JONES Age: 50 years Sex: FEMALE : 1970 Associated Diagnoses: None Author: Gen Jean MD Preoperative Information Anesthesia history: Patient history: Nausea and vomiting with anesthesia, No difficult intubation, No malignant hyperthermia. Family history: No malignant hyperthermia. Review of Systems Respiratory: No shortness of breath, No apnea. Cardiovascular: No known AK, No chest pain. Gastrointestinal: No heartburn. Health [...] All Problems HTN (hypertension) / SNOMED CT 0156454963 / Confirmed Histories Family History: No family history items have been selected or recorded. Procedure history: Abdominal hysterectomy ([id number]). Arthroscopy of knee ([id number]). Lipoma (830599483). Comments: 01/04/2021 11:19 OSKAR Becker RN, Milana dominguez Social History Electronic Cigarette/Vaping Assessment Electronic Cigarette Use: Never. Alcohol Assessment Use: Current. Beer, 1-2 times per week Tobacco Assessment Never (less than 100 in lifetime) Tobacco Use:. Substance Abuse Assessment Substance use: Past. . Physical Examination VS/Measurements Vital Signs (last 24 hrs) Last Charted Heart Rate Peripheral 74 bpm (JAN 21 06:25) Resp Rate 16 br/min (JAN 21:25) SBP H 169 mmHg (JAN 21 06:46) DBP H 103 mmHg (JAN 21 06:46) General: Alert and oriented, No acute distress. Airway: Mallampati classification: II (soft palate, fauces, uvula visible). Respiratory: Respirations are non-labored. Cardiovascular: Normal rate. Review / Management Laboratory Results ECG interpretation: Within normal limits. Plan [place] [employer]esthesi[employer]#(ASA) physical status classification: Class II. Anesthetic Preoperative Plan Anesthesia: General. . Anesthetic plan, risks, benefits, and alternatives discussed with the patient and/or family. Patient verbalized understanding. Family/Guardian present. Informed consent was given. Consent was signed by the patient. [Electronically Signed on: 01/21/2021 07:10 EST] Gen Jean MD [Verified on: 01/21/2021 07:10 EST] Gen Jean MD Normal [facility] Inpatient Patient Summaryon 01-21-2021 [place] [address] Patient Discharge Instructions Name: YASMIN JONES : 1970 Patient Address: [address] [place] [id number] Primary Care Provider: Name: RANDY CALLE After you are discharged if you find you have any questions, please, call [phone] ext [phone] to speak to a nurse. Discharge Diagnosis: [...] alcohol and/or drug addiction problems; contact the [facility] 22/09 Crisis Hotline -Text 4HDUV yp 465731. If you received any narcotics, sedation, or [...] business decisions or sign any legal documents [facility] would like to thank you for allowing us to assist you with your healthcare needs. The following includes patient education materials and information regarding your injury/illness. YASMIN JONES has been given the following list of follow-up instructions, prescriptions, and patient education materials: Follow-up Instructions With: Address: When: [address], [address] [place] [address] Business (1) 01/30/2021 11:00 AM With: Address: When: [place] [address] Business (1) Medications During the course of [...] or concerns, please call the office at [phone] Viruses or Bacteria What?s got you sick? [...] (except strep) (more content not included)... Normal [facility] MAGR Intraoperative Recordon 01-21-2021 [facility] [place] [facility] Intra-Op Record Summary Primary Physician: Hua Oglesby DO Finalized Date/Time: 01/21/21 11:10:34 Pt. Name: YASMIN JONES/Sex: 1970 FEMALE Med Rec #: [id number] Physician: Hua Oglesby DO Financial #: [id number] Pt. Type: D Room/Bed: / Admit/Disch: 01/21/21 06:05:01 - 01/21/21 10:08:00 Institution: Case Times [facility] Entry 1 Patient In Room Time 01/21/21 [...] Role Performed Surgeon - Primary Anesthesiologist of Programmer Operator Numerical Control Record Time In 01/21/21 07:22:00 01/21/21 07:22:00 01/21/21 07:22:00 Time Out 01/21/21 08:17:00 01/21/21 08:17:00 01/21/21 08:17:00 Procedure Arthroscopy Knee(Right) Arthroscopy Knee(Right) Arthroscopy Knee(Right) Last Modified By: Dorothy Archer RN, Barbara RN Long, Barbara RN 01/21/21 08:21:11 01/21/21 08:21:11 01/21/21 08:21:11 Entry 4 Entry 5 Case Attendee Nemo Mendez CST, Regina CST Role Performed Scrub Personnel Wheel Polisher Time In 01/21/21 07:22:00 01/21/21 07:22:00 Time [...] 07:55:36 Post-Care T (more content not included)... [facility]R Postoperative Record MAGR Phase II Record Summary Primary Physician: Hua Oglesby DO Finalized Date/Time: 01/21/21 10:17:55 Pt. Name: YASMIN JONES/Sex: 1970 FEMALE Med Rec #: [id number] Physician: Hua Oglesby DO Financial #: [id number] Pt. Type: D Room/Bed: / Admit/Disch: 01/21/21 [...] Signed By: Marianna Gerber RN 01/21/21 10:17 [facility] 03-23-2020 MAGR Preoperative Record MAGR Pre-Op Record Summary Primary Physician: Hua Oglesby DO Finalized Date/Time: 01/21/21 08:40:07 Pt. Name: YASMIN JONES/Sex: 1970 FEMALE Med Rec #: [id number] Physician: Hua Oglesby DO Financial #: [id number] Pt. Type: D Room/Bed: / Admit/Disch: 01/21/21 [...] By: Carolina Painter RN 01/21/21 08:40 Normal [facility] Operative Report - Surgeon/P aster 01-21-2021 Operative Report - Surgeon/Physician Preoperative diagnosis: Internal derangement right knee Postoperative diagnosis: Tear lateral meniscus right knee Procedure: Arthroscopic partial lateral meniscectomy right knee Surgeon: Mxa Oglesby D.O. Anesthesia: General Indications for surgery: [...] on: 01/21/2021 10:16 EST] Hua Oglesby DO [facility] Patient Handouton 01-21-[address] [...] or concerns, please call the office at [phone] Normal [facility] [place] 01-12-2021 Albumin [Mass/Vol] 4.3 g/dL Normal 3.6-5.1 [facility] Comment on above: Performed By: #### 7 600, [id number] #### [facility] of [address], [address] [place] [address] International Account Representative: Heraclio Miller MD Albumin/Globulin [Mass ratio] 1.8 {ratio} Normal 1.0-2.5 [facility] Comment on above: Performed By: #### 7 600, 46567 #### [facility] of [address], [address] [place] [address] International Account Representative: Heraclio Miller MD ALP [Catalytic activity/Vol] 60 U/L Normal 37-153 [facility] Comment on above: Performed By: #### 7 600, 40361 #### [facility] of [address], [address] [place] [address] International Account Representative: Heraclio Miller MD ALT [Catalytic activity/Vol] 17 U/L Normal 6-29 [facility] Comment on above: Performed By: #### 7 600, 53589 #### [facility] of [address], [address] [place] [address] International Account Representative: Heraclio Miller MD AST [Catalytic activity/Vol] 18 U/L Normal 10-35 [facility] Comment on above: Performed By: #### 7 600, 14280 #### [facility] of [address], [address] [place] [address] International Account Representative: Heraclio Miller MD Bilirubin [Mass/Vol] 1.1 mg/dL Normal 0.2-1.2 [facility] Comment on above: Performed By: #### 7 600, 56385 #### [facility] of [address], [address] [place] [address] International Account Representative: Heraclio Miller MD BUN/CREATININE RATIO NOT APPLICABLE Normal 6-22 [facility] Comment on above: Performed By: #### 7 600, 50045 #### [facility] [place] [address] International Account Representative: Heraclio Miller MD Calcium [Mass/Vol] 9.3 mg/dL Normal 8.6-10.4 [facility] Comment on above: Performed By: #### 7 600, 45485 #### [facility] [place] [address] International Account Representative: Heraclio Miller MD Chloride [Moles/Vol] 105 mmol/L Normal 98-110 [facility] Comment on above: Performed By: #### 7 600, 24941 #### [facility] [place] [address] International Account Representative: Heraclio Miller MD CO2 [Moles/Vol] 28 mmol/L Normal 20-32 [facility] Comment on above: Performed By: #### 7 600, 25419 #### [facility] [place] [address] International Account Representative: Heraclio Miller MD Creatinine [Mass/Vol] 0.86 mg/dL Normal 0.50-1.05 [facility] Comment on above: Result Comment: For patients >49 years of age, the reference limit for Creatinine is approximately 13% higher for people identified as -[place]. Performed By: #### 7 600, 80270 #### [facility] [place] [address] International Account Representative: Heraclio Miller MD eGFR NON-AFR. CROATIAN 79 mL/min/1.73m2 Normal > OR = 60 [facility] Comment on above: Performed By: #### 7 600, 84382 #### [facility] [place] [address] International Account Representative: Heraclio Miller MD GFR/1.73 sq M.predicted among blacks MDRD (S/P/Bld) [Vol rate/Area] 91 mL/min/{1.73_m2} Normal > OR = 60 [facility] Comment on above: Performed By: #### 7 600, 86177 #### [facility] of [address], [address] [place] [address] International Account Representative: Heraclio Miller MD Globulin (S) [Mass/Vol] 2.4 g/dL Normal 1.9-3.7 [facility] Comment on above: Performed By: #### 7 600, 88734 #### [facility] of [address], [address] [place] [address] International Account Representative: Heraclio Miller MD Glucose [Mass/Vol] 86 mg/dL Normal 65-139 [facility] Comment on above: Result Comment: Non-fasting reference interval Performed By: #### 7 600, 09522 #### [facility] of [address], [address] [place] [address] International Account Representative: Heraclio Miller MD Potassium [Moles/Vol] 3.9 mmol/L Normal 3.5-5.3 [facility] Comment on above: Performed By: #### 7 600, 12285 #### [facility] of [address], [address] [place] [address] International Account Representative: Heraclio Miller MD Protein [Mass/Vol] 6.7 g/dL Normal 6.1-8.1 [facility] Comment on above: Performed By: #### 7 600, 05953 #### [facility] of [address], [address] [place] [address] International Account Representative: Heraclio Miller MD Sodium [Moles/Vol] 140 mmol/L Normal 135-146 [facility] Comment on above: Performed By: #### 7 600, 40528 #### [facility] of [address], [address] [place] [address] International Account Representative: Heraclio Miller MD Urea nitrogen [Mass/Vol] 15 mg/dL Normal 7-25 [facility] Comment on above: Performed By: #### 7 600, 80597 #### [facility] of [address], [address] [place] [address] International Account Representative: Heraclio Miller MD LIPID PANEL, [facility] 11-1 Cholesterol [Mass/Vol] 173 mg/dL Normal <200 [facility] Comment on above: Order Comment: FASTI NG:NO FASTING: NO Performed By: #### 7 600, 35770 #### [facility] [address], [address] [place] [address] International Account Representative: Heraclio Miller MD Cholesterol in HDL [Mass/Vol] 69 mg/dL Normal > OR = 50 [facility] Comment on above: Order Comment: FASTI NG:NO FASTING: NO Performed By: #### 7 600, 19920 #### [facility] [address], [address] [place] [address] International Account Representative: Heraclio Miller MD Cholesterol in LDL [Mass/Vol] [...] LDL-C. Campos SS et al. MARQUISE. 2013;310(19): 8150-2626 (http://education.[employer].[facility]/faq/SXQ333) Performed By: #### 7 600, 43464 #### [facility] [address], [address] [place] [address] International Account Representative: Heraclio Miller MD Cholesterol.total/C holesterol in HDL [Mass ratio] 2.5 {ratio} Normal <5.0 [facility] Comment on above: Order Comment: FASTI NG:NO FASTING: NO Performed By: #### 7 600, 36771 #### [facility] [address], [address] [place] [address] International Account Representative: Heraclio Miller MD NON HDL CHOLESTEROL 104 mg/dL (calc) Normal <130 [facility] Comment on above: Order Comment: FASTI NG:NO FASTING: NO Result Comment: For patients with diabetes plus 1 major ASCVD risk factor, treating to a non-HDL-C goal of <100 mg/dL (LDL-C of <70 mg/dL) is considered a therapeutic option. Performed By: #### 7 600, 68551 #### [facility] [address] [facility], [address] International Account Representative: Heraclio Miller MD Triglyceride [Mass/Vol] 68 mg/dL Normal <150 [facility] Comment on above: Order Comment: FASTI NG:NO FASTING: NO Performed By: #### 7 600, 58726 #### [facility] [address] [facility], [address] International Account Representative: Heraclio Miller MD Coding Summaryon 01-09-2021 Coding Summary [employer]Base 64 RlfsnzhhFBe0lXu+PGhlYWQ +LI9YKNQzH61cxUKubB4IV7 lBLL0DXOCOWIKDEW2GIP3ud SU5XBzyM8NhcdFp UytdcAWvNC20KEl9PRM9oFj aMEzexO5nbZAbJ6b0YfNgJH 68zM95EOcvECEpWqQ8JgNcg jsgbWFy K9hdJlHqzTNePjw+PHRhYmx lIHdpZHRoPScxMDAlJyBzdH adSF7zFs7rMBSgHUVapMdzp HNlOiBj i6jkIZVcUKffCH0kvJkaX5B qsUY2NMOsb3x8Jn51jFH+PH EuTDS6xSfbTVafx473DdYgq 6oqBFH7 bOIhXRqpGSV9Q81nf4N1IKU sBHGsLCM7oGB4hW8vpZqggs irP2GjnVVaCuP8KBI5sKGwx I0twYhj abnlaF8rUbi+B48YJU3OTWD AFT9FPwd5S8EnBnunfKK+PC 14KJIgSY76vFBapTWrt2xks Eh6NrKx WFQeFFL0pJbgVAbkj4RoFUU bN70qwFAsn6H7HCQetJbzbS VsLbJkzRR0cS9eBZyvpaqxy 2hvdzsn Mmebf7ogpt13oZ67P37pWGq lNUCoWQH0IDYjGUEosWxuop 1efH7oIi3+XOzjt7ujd5lbz Me2DeQx EYAzwkAcmWyqHZO3a1PjDz6 8K3ThrHdsf4ApWof0mk61dR Dko5L3zOJ5QKitMCVdjD1iY WxlZnQ6 GNWtAnCuoM37eEAvVFrfZz0 vbHoekIsiQV8pRRHpooiqSG WvqF9jJAKzjMJuqXpgYV0sP TBpbjtm a767CvVtBJK5HJVwsIAaS1Q zgG5yIfNsPLQxXREkR9WrlY VjMWqaM257JGfxMeM1JBFpb hSvS8If VEAoxDurZsH4h2H4Ob5Dv2C jdynbKWV4KExrQISxZeXtCj FdEpG7C7UySmt3GBWhsRqwE T6wM6Jm PPJagunkttnzwUA9HRBtLET oeC41uVRvZFqpEt0dr7C3p2 96KIOuYVHrzJ69Td2pcPzoE TBwdCBU zH1rxthmn8jxdqpmKqFjVSJ cKLs6EOa4HZQvcJfsHrDyAX T3FnV0ILP6pRZupY8voJiuo hornK7i Oyc+J11xuQ1uZEO4AGE6pqx eFTWblnQzKZ83EO48H8SqKx wvdGFibGU+PGRpdiBzdHlsZ D9pYbRl j8zbi8OtAFgfU4KlAKLtZPm xCpn3NYKuDMI4jUB6sJ8dZJ KxYHzkm8K0oPB0L8YetqDzv d7bg8iy OIGeUXlaK96rmTEky0G3RXN auPA5XKKebJogFyOseO72Ad c+NIFxeOkob6VnBodzi8gws 7oemHg7 CyKzSXBuguUbgBzsKEL1r1H mXw61G59uCBwvMEJbUOPfYB OaTGJvaEpajq7utJ9lBj4+P GNvbCB3 oRY5gX0zOBInGxH0FDkcQ80 8HaFjtWDuNmxgc8jkw1sofO o2TjZrCKGdqcOjxRhwIAB2z 9TiOp20 Q12iQJvkWAKlQZImQUQqGOZ juSbica2fxM3rJt9+PC9jb2 lksp69cJ35jMF+PBYlVCQ3i WxlPSdw SGUxmE1pEIhzVmR1JDJtCdQ pyM83dPGlQAdkCt7txYfjmN vjFA0gURCjvblcs430YpEgr 2xkIDEw oZRtGUckCQK4T57ho3K7TLO qYYReZKW3wGH5mJ2mdRuwmk ogbGVmdDsgdmVydGljYWwtY WnlY220 IHRvcDsnPlBhdGllbnQgTmF uJIe2O4PhYct7UFMygQbnKZ 9qhABkNYjcOb1ciSjogEfeE H6rZVGe wsphx436OaPlc1ftDRUlzNA cJBvpTZW5Y78ew4U2CISgTJ VeZEQ4zKV1tF3sbWicfcpia GVmdDsg xhRwmRklHOgbYJsuQ084ONF wlBcwRfKmxpCkXGYeeDR0CF 66WD60eWFst7X5mQG8J6UmY GRpbmct cmspdRT9HMXeCQVugQ41Th6 ycVovHd8gUIXzFWI7DFKqjV TgL1PbyY6dPcDqMCKiEJTlW 3RleHQt WFofO680LIdhOsJ1EMXfuvG uM6HmHQRlzHbjCuM5x3B8Dh 6BV2V1CA30NG15qYHvb8Q4l KH2E7Up GZZszollnirsjEB1WAWxKQV lvN46Rq2vmDohEp8yBBRnSD M0KJRiiTOpH8PpxT1fRjUyL DAwMDAw K1JmxPItXQsvU595VPliRqD 7KCJsfkEqL3OlOIPnlIbyEw L2c1W9Yd8PUSx2KL50UC08u LXhg0U0 bJL5F5KqQXHugwbqfxskaJX 8SELuLUDdyK98Ow2vfNnoKq 1fLUEbFHK3BJSlzGWbT1Jik C9uLsQh FNXlDWBcE5ZgzJLoLDqbM20 8WMzvGaG4NHXmlzHzM9WoXL QffSpuXnQ5c3Q9Qw7UWKFkT E24JAG3 wGT5JJ19QP65R9HpPjtuzCB ibGU+PHRhYmxlIHdpZHRoPS kwVGVkHcCzoNxlPL2dAr8jY GVyLWNv lFbxaQVaUgNnh7xpQSXyOHo gXM7agLcaZ7KnaTI3HUYwg8 r7Gr05I38oO5NwwUT+PGNvb AE5wKC0 wW6xEbJsNiI9XSitA115AbX tjSGaPfagy2nga0ikoGy3Ik Z7TQDwueVzxFylMDG1m6WnM j45R71z IHdpZHRoPSIxNSUiIHZhbGl qvn6knV5vWm6+YHCidHZ5sB N5fW0aGtIpHjU9KVycT628L nRvcCIv Ubchh5esu4xznGu8MoKtTDJ ezfKuzWjqGZQ9a7CtGj29M0 UjlEavp3MvCrz2iw64qJUuv 9M3lEE1 G1JmHEIhzvnknTYerYpvBP6 sITJrmjipTAJkzK8wHKVkM6 y9YjLaTnF2ZKivV6AnpuH7M DEwcHQg DLupZTJ6C62sk3Z6CKZsQYE xCQO8mLD4kZ3zfZcdvrcvoT VmdDsgdmVydGljYWwtYWxpZ 246IHRv jUssYLExgC3hGQCgkVJwmSz rAO6sITSlsrhiMvsHTF2WSh wgRUxJWkFCRVRIIEFOTjwvd GQ+PHRk RUL5sXcnFQzgOUMumQ1eGLL jS7y1LfIxInM6JMtdR7ZxFY SakgphBp31dE6wPeVoChX0Y KeaE4Vp xaA2RXZlvKSzJHhkFEV5T46 gt4O3NQDvFWFdNLC6dGJ3jB 1hbGlnbjogbGVmdDsgdmVyd GljYWwt DJflX079ZXQixSbyWnR3CdH yNsB8KoD9A0DtTgn9BGGrjI ieVP5efROzIDkmBr7fqOari PheKU6w WZMewcfzWQTkeH0oXTAgwRC ioYyqJI8lKLEozguie448Et IoNYH8OEJofSLwU7ZrkU7kN iAjMDAw IRIkZ7KcjDDjSDigC079SOc pNkC5VTFlgkZyH7NqCVXfmB eePsT4d5E7Cv38QDVVUWQgt zwvdGQ+ PMBnCBS6xBrqUNhgPODgxD0 aCRYeD3y3QyGsFqD4RMdlU5 MlSHUaaimhHo75wY5hSaYsU fX1YGdo D0BdotY8MSLlfVZeGBpvICH 0C38am4M4QWYsCUWvCLA5hP G6nS5fjCopptrydDEouXwii mVydGlj MNfxAWoiK572GHRfwQthEwM FTUFMRTwvdGQ+MOSyLLK9oO baKWmsAFEzgI5fZASuB9r9W iAwLjA1 SJwpU3WaIFLvqynmTt44zT2 xFoCgJsA2NEjaV4NlspK0KL AcjLJfDEeqZYF2V94ot3S0C CMwMDAw TFY0yPR3xR1mrWvgmblxrNO mdDsgdmVydGljYWwtYWxpZ2 57ACBmfQwiXz5SXX33LA03L 3RyPjwv dGFibGU+PHRhYmxlIHdpZHR vZUtfLCPjFkBpfZukCS7wTh 9yZGVyLWNvbGxhcHNlOiBjb 2xsYXBz PHvkGP1fkDffK4UgqKB7LCC tk8g7Vd44B72dL2EdqBB+PG HvnUH7qUL6sA3dBuIqYoO9B NurN896 YjFsxUKuLhbzi6ueb3phnOz 0KpGpLTAiwiZllLikUYF8n8 TgCm23W34hSAdcWLTbSQBfJ CUiIHZh rTcjho3glS7zEy6+PGNvbCB 4kEE5gI0eGkRcZbI3KUwoQ4 70QzLntDPmLmjfY37nN9Wax XA+PHRy Cot4HXYwgDvrYQ2opGYvNOg bGo9gOBP0OfOcAyLcJBckP0 MsQYBcfatbzjqbnGY0OLTlO DUwaW47 Dy8ajGajDr7fPYTePCA4AGE ilUHbJ7HuqV5qKzRpPAZhLG CtD9JmvOLqGPfqV715VXpeQ nR7IXTw tsDeH9RjPHSdjSjzByT1r5Y 8Az8LmSiucWCwWD0xImKeTE d9K8OwNly3GKAyxQbkWC5hh GFkZGlu Ag8smGaxaSwtYR7kCCZenop ce128RtYwc9snFBMniILwYP ivXNU9K01fr3Q1ADUiHOVvS CY3eDB5 bL1qqTovfskbjWTzrJalljU ybIkhBYaeBXpyK425CTTcrL ojVxNNUon8L0SbEnt5DCLsm UlsFY0d jIXnMZjxFm2hyFjzoQerDV7 bRFPbsgxyw082NhMqc4siVN CpvEQoSFrzHJY0Z51aj9I4R CMwMDAw LYW3iWN9fP7bgVgwfetaiUH mdDsgdmVydGljYWwtYWxpZ2 92THHacMqyMr4KVxc8B4EeL [id number] [id number] [id number] Apy3xfDMWvkDIsNZsxZYF3P 21ab7F5 FPBaOKPlREW6cMI8iN4fqFs nbjogbGVmdDsgdmVydGljYW txRWleL578LOXpgHutIpBvz WVyOjwv dGQ+IR17ch70S1KuRtdxVim 6TYZqAIB5yTX4kL8ePQObIE dyu1I0kHZ1C2AszzIpgg7cb 2xsYXBz ZTo (more content not included)... [facility] Consent Formson 01-08-2021 Consent Forms [id number] TGTIFF [facility] Progress Note - Nurseon Progress Note - Nurse PAT review for 01-21-2021 surgery reviewed per anesthesiologist, Dr. Gutierrez- no additional orders received. [Electronically Signed on: 01/07/2021 14:24 EST] Elvira Navarro RN [Verified on: 01/07/2021 14:24 EST] Elvira Navarro RN [facility] .Auto Diff 1on 01-04-2021 Auto Woodruff % 8 % Normal 03-13 [facility] Comment on above: Performed By: #### 1 [id number], [id number], [id number] ####[facility] (DEFAULT)[address] [place] [address] Baso Abs# 0.1 x10 Normal 0.0-0.2 [facility] Comment on above: Performed By: #### 1 [id number], [id number], [id number] ####[facility] (DEFAULT)[address] [place] [address] 03156 Basophils/100 WBC (Bld) 1.2 % Normal 0.2-2.0 [facility] Comment on above: Performed By: #### 1 [id number], [id number], [id number] ####[facility] (DEFAULT)[address] [place] [address] 01881 Eos Abs# 0.3 x10 Normal 0.0-0.4 [facility] Comment on above: Performed By: #### 1 [id number], [id number], [id number] ####[facility] (DEFAULT)[address] [place] [address] 26101 Eosinophils/100 WBC (Bld) 3.6 % Normal 0.9-4.0 [facility] Comment on above: Performed By: #### 1 [id number], [id number], [id number] ####[facility] (DEFAULT)[address] [place] [address] 25861 Lymph Abs# 2.6 x10 Normal 1.3-2.9 [facility] Comment on above: Performed By: #### 1 [id number], [id number], [id number] ####[facility] (DEFAULT)[address] [place] [address] 09917 Lymphocytes/100 WBC (Bld) 34 % Normal 14-48 [facility] Comment on above: Performed By: #### 1 [id number], [id number], [id number] ####[facility] (DEFAULT)[address] [place] [address] 42423 Woodruff Abs# 0.6 x10 Normal 0.0-0.8 [facility] Comment on above: Performed By: #### 1 [id number], [id number], [id number] ####[facility] (DEFAULT)[address] [place] [address] 88174 Neut Abs# 3.9 x10 Normal 1.5-9.2 [facility] Comment on above: Performed By: #### 1 [id number], [id number], [id number] ####[facility] (DEFAULT)[address] [place] [address] 76626 Neutrophils/100 WBC (Bld) 53 % Normal 44-88 [facility] Comment on above: Performed By: #### 1 [id number], [id number], [id number] ####[facility] (DEFAULT)[address] [place] [id number] Standardon 01-04-2021 eGFR Non AA >60 Invalid Interpretation Code [facility] Comment on above: Performed By: #### 1 [id number], [id number], [id number] ####[facility] (DEFAULT)[address] [place] [address] eGFR AA >60 Invalid Interpretation Code [facility] Comment on above: Result Comment: Medical Billing Assistant emdina Kidney disease could be indicated at eGFRs of less than 60 ml/min/1.73m2. Kidney Failure is indicated at less than 15 ml/min/1.73m2 Performed By: #### 1 [id number], [id number], [id number] ####[facility] (DEFAULT)[address] [place] [address] 95637 Anion gap [Moles/Vol] 12.0 mmol/L Normal 5.0-19.0 [facility] Comment on above: Performed By: #### 1 [id number], [id number], [id number] ####[facility] (DEFAULT)[address] [place] [address] 99260 Calcium [Mass/Vol] 9.5 mg/dL Normal 8.9-10.3 [facility] Comment on above: Performed By: #### 1 [id number], [id number], [id number] ####[facility] (DEFAULT)[address] [place] [address] 72692 Chloride [Moles/Vol] 102 mmol/L Normal 101-111 [facility] Comment on above: Performed By: #### 1 [id number], [id number], [id number] ####[facility] (DEFAULT)[address] [place] [address] 84263 CO2 [Moles/Vol] 27 mmol/L Normal 21-32 [facility] Comment on above: Performed By: #### 1 [id number], [id number], [id number] ####[facility] (DEFAULT)[address] [place] [address] 27877 Creatinine [Mass/Vol] 0.77 mg/dL Normal 0.60-1.30 [facility] Comment on above: Performed By: #### 1 [id number], [id number], [id number] ####[facility] (DEFAULT)[address] [place] [address] 18783 Glucose [Mass/Vol] 88.0 mg/dL Normal 74.0-118.0 [facility] Comment on above: Performed By: #### 1 [id number], [id number], [id number] ####[facility] (DEFAULT)[address] [place] [address] 85644 Osmolality 275 mOsm/L Invalid Interpretation Code [facility] Comment on above: Performed By: #### 1 [id number], [id number], [id number] ####[facility] (DEFAULT)[address] [place] [address] 91950 Potassium [Moles/Vol] 3.4 mmol/L Low 3.6-5.1 [facility] Comment on above: Performed By: #### 1 [id number], [id number], [id number] ####[facility] (DEFAULT)[address] [place] [address] 75230 Sodium [Moles/Vol] 138.0 mmol/L Normal 136.0-144.0 [facility] Comment on above: Performed By: #### 1 [id number], [id number], [id number] ####[facility] (DEFAULT)[address] [place] [address] 12666 Urea nitrogen [Mass/Vol] 13 mg/dL Normal 8-26 [facility] Comment on above: Performed By: #### 1 [id number], [id number], [id number] ####[facility] (DEFAULT)[address] [place] [address] Urea nitrogen/Creatinine [Mass ratio] 17.0 mg/mg High 4.6-16.2 [facility] Comment on above: Performed By: #### 1 [id number], [id number], [id number] ####[facility] (DEFAULT)[address] [place] [address] CBC w/ Auto Diffon 1 Erythrocyte distribution width (RBC) [Ratio] 13.7 % Normal 11.5-15.0 [facility] Comment on above: Performed By: #### 1 [id number], [id number], [id number] ####[facility] (DEFAULT)[address] [place] [address] Hematocrit (Bld) [Volume fraction] 37.5 % Normal 33.7-40.4 [facility] Comment on above: Performed By: #### 1 [id number], [id number], [id number] ####[facility] (DEFAULT)[address] [place] [address] Hemoglobin (Bld) [Mass/Vol] 11.7 g/dL Normal 11.3-15.9 [facility] Comment on above: Performed By: #### 1 [id number], [id number], [id number] ####[facility] (DEFAULT)[address] [place] [address] Instr WBC 7.4 x10 Invalid Interpretation Code [facility] Comment on above: Performed By: #### 1 [id number], [id number], [id number] ####[facility] (DEFAULT)[address] [place] [address] 42505 Man Diff? Auto Normal [facility] Comment on above: Performed By: #### 1 [id number], [id number], [id number] ####[facility] (DEFAULT)[address] [place] [address] 15509 MCH (RBC) [Entitic mass] 26 pg Normal 24-34 [facility] Comment on above: Performed By: #### 1 [id number], [id number], [id number] ####[facility] (DEFAULT)[address] [place] [address] MCHC (RBC) [Mass/Vol] 31 g/dL Normal 26-37 [facility] Comment on above: Performed By: #### 1 [id number], [id number], [id number] ####[facility] (DEFAULT)[address] [place] [address] MCV (RBC) [Entitic vol] 84 fL Normal 81-100 [facility] Comment on above: Performed By: #### 1 [id number], [id number], [id number] ####[facility] (DEFAULT)[address] [place] [address] Platelet 393 x10 Normal 138-427 [facility] Comment on above: Performed By: #### 1 [id number], [id number], [id number] ####[facility] (DEFAULT)[address] [place] [address] Platelet mean volume (Bld) [Entitic vol] 9.7 fL Normal 6.3-10.2 [facility] Comment on above: Performed By: #### 1 [id number], [id number], [id number] ####[facility] (DEFAULT)[address] [place] [address] RBC 4.48 x10 Normal 3.70-5.30 [facility] Comment on above: Performed By: #### 1 [id number], [id number], [id number] ####[facility] (DEFAULT)[address] [place] [address] WBC 7.4 x10 Normal 3.5-10.5 [facility] Comment on above: Performed By: #### 1 [id number], [id number], [id number] ####[facility] (DEFAULT)[address] [place] [address] CULTURE, URINE, ROUTINEon CULTURE, URINE, ROUTINE SEE NOTE Abnormal [facility] Comment on above: Result Comment: CULTURE, URINE, ROUTINE Micro Number: [id number] Test Status: Final Specimen Source: Not given [...] Performed By: #### 3 95 #### [facility] [address], [address] [place] [id number] International Account Representative: Heraclio Miller MD Vital Signs Date Time Vital Sign Value Performing Clinician Facility 04-10-2023 15:17-0500 Blood Pressure Location Jackson WILLETT [facility] 04-10-2023 15:17-0500 Diastolic blood pressure 80 mm[Hg] Jackson WILLETT [facility] 04-10-2023 15:17-0500 Heart rate 72 /min Jackson WILLETT [facility] 04-10-2023 15:17-0500 Respiratory rate 16 /min Jackson WILLETT [facility] 04-10-2023 15:17-0500 Systolic blood pressure 116 mm[Hg] Jackson RODRIGUEZL [facility] [place] 04-02-2023 11:41-0500 Body mass index (BMI) [Ratio] 30.68 kg/m2 Evan Jay DO Work Phone: [facility] 04-02-2023 11:41-0500 Body weight 99.79 kg Evan Jay DO Work Phone: [facility] 04-02-2023 11:41-0500 Diastolic blood pressure 72 mm[Hg] Evan Jay DO Work Phone: [facility] 04-02-2023 11:41-0500 Systolic blood pressure 124 mm[Hg] Evan Jay DO Work Phone: [facility] 09-29-2022 14:29-0400 Body height 180.34 cm Randy G Furlong Work Phone: [facility] [place] [facility] DO Work Phone: 09-29-2022 14:29-0400 Body mass index (BMI) [Ratio] 31.52 kg/m2 Randy G Furlong Work Phone: [facility] [facility] DO Work Phone: 09-29-2022 14:29-0400 Body surface area Derived from formula 2.22 m2 Randy G Furlong Work Phone: [facility] DO Work Phone: 09-29-2022 14:29-0400 Body weight 102.51 kg Randy G Furlong Work Phone: [facility] [facility] DO Work Phone: 09-29-2022 14:29-0400 Diastolic blood pressure 88 mm[Hg] Randy G Furlong Work Phone: [facility] 250 DO Work Phone: 09-29-2022 14:29-0400 Heart rate 76 /min Randy G Furlong Work Phone: [facility] [facility] DO Work Phone: 09-29-2022 14:29-0400 Systolic blood pressure 138 mm[Hg] Randy G Furlong Work Phone: [facility] 250 DO Work Phone: 09-12-2022 14:56-0400 Body height 180.34 cm Randy G Furlong Work Phone: [facility] DO Work Phone: 09-12-2022 14:56-0400 Body mass index (BMI) [Ratio] 30.96 kg/m2 Randy G Furlong Work Phone: [facility] DO Work Phone: 09-12-2022 14:56-0400 Body surface area Derived from formula 2.2 m2 Randy G Furlong Work Phone: [facility] DO Work Phone: 09-12-2022 14:56-0400 Body weight 100.7 kg Randy G Furlong Work Phone: [facility] DO Work Phone: 09-12-2022 14:56-0400 Diastolic blood pressure 88 mm[Hg] Randy G Furlong Work Phone: [facility] [facility] DO Work Phone: 09-12-2022 14:56-0400 Heart rate 78 /min Randy G Furlong Work Phone: [facility] [facility] DO Work Phone: 09-12-2022 14:56-0400 Systolic blood pressure 132 mm[Hg] Randy G Furlong Work Phone: [facility] [facility] DO Work Phone: 08-22-2022 09:47-0400 Diastolic blood pressure 100 mm[Hg] Randy G Furlong Work Phone: [facility] [facility] DO Work Phone: 08-22-2022 09:47-0400 Systolic blood pressure 142 mm[Hg] Randy G Furlong Work Phone: [facility] 250 DO Work Phone: 08-22-2022 09:46-0400 Body height 180.34 cm Randy G Furlong Work Phone: [facility] [place] [facility] DO Work Phone: 08-22-2022 09:46-0400 Body mass index (BMI) [Ratio] 30.68 kg/m2 Randy G Furlong Work Phone: [facility] DO Work Phone: 08-22-2022 09:46-0400 Body surface area Derived from formula 2.2 m2 Randy G Furlong Work Phone: [facility] [facility] DO Work Phone: 08-22-2022 09:46-0400 Body weight 99.79 kg Randy G Furlong Work Phone: [facility] DO Work Phone: 08-22-2022 09:46-0400 Diastolic blood pressure 102 mm[Hg] Randy G Furlong Work Phone: [facility] [facility] DO Work Phone: 08-22-2022 09:46-0400 Heart rate 74 /min Randy G Furlong Work Phone: [facility] [place] [facility] DO Work Phone: 08-22-2022 09:46-0400 Systolic blood pressure 148 mm[Hg] Randy G Furlong Work Phone: [facility] [place] [facility] DO Work Phone: 07-21-2022 08:15-0400 Diastolic blood pressure 88 mm[Hg] Randy G Furlong Work Phone: [facility] DO Work Phone: 07-21-2022 08:15-0400 Systolic blood pressure 122 mm[Hg] Randy G Furlong Work Phone: [facility] [place] 250 DO Work Phone: 07-21-2022 08:14-0400 Body height 180.34 cm Randy G Furlong Work Phone: [facility] DO Work Phone: 07-21-2022 08:14-0400 Body mass index (BMI) [Ratio] 30.82 kg/m2 Randy G Furlong Work Phone: [facility] [place] 250 DO Work Phone: 07-21-2022 08:14-0400 Body surface area Derived from formula 2.2 m2 Randy G Furlong Work Phone: [facility] DO Work Phone: 07-21-2022 08:14-0400 Body weight 100.25 kg Randy G Furlong Work Phone: [facility] [facility] DO Work Phone: 07-21-2022 08:14-0400 Diastolic blood pressure 86 mm[Hg] Randy G Furlong Work Phone: [facility] DO Work Phone: 07-21-2022 08:14-0400 Heart rate 59 /min Randy Normanlong Work Phone: [facility] DO Work Phone: 07-21-2022 08:14-0400 Systolic blood pressure 132 mm[Hg] Randy Normanlong Work Phone: [facility] [facility] DO Work Phone: 07-14-2022 14:02-0400 Body temperature 99.32 [degF] Reid Bauer [facility] 07-14-2022 14:02-0400 Diastolic blood pressure 86 mm[Hg] Reid Bauer [facility] 07-14-2022 14:02-0400 Heart rate 76 /min Reid Bauer [facility] 07-14-2022 14:02-0400 SaO2% (BldA) [Mass fraction] 98 % Reid Bauer [facility] 07-14-2022 14:02-0400 Systolic blood pressure 120 mm[Hg] Reid Bauer [facility] 11-11-2021 19:25-0400 Body height 180.34 cm Jesusita Gee Other [employer] [facility] [employer] Other 11-11-2021 19:25-0400 Body mass index (BMI) [Ratio] 28.59 kg/m2 Jesusita Gee Other [employer] Other 11-11-2021 19:25-0400 Body temperature 98.1 [degF] Jesusita Gee Other [employer] Other 11-11-2021 19:25-0400 Body weight 92.99 kg Jesusita Gee Other [employer] Other 11-11-2021 19:25-0400 Respiratory rate 18 /min Jesusita Gee Other [employer] Other 11-11-2021 19:25-0400 SaO2% (BldA) [Mass fraction] 96 % Jesusita Gee Other [employer] Other Encounters Encounter Date Encounter Type Care Provider Facility Start: 04-14-2023 End: 04-14-2023 ambulatory [facility] Start: 04-10-2023 End: 04-11-2023 ambulatory Jackson WILLETT Facility: [facility] Start: 04-10-2023 End: 04-10-2023 Patient encounter procedure Jackson WILLETT [facility] [place] Start: 04-10-2023 End: 04-11-2023 ambulatory [facility] Start: 04-10-2023 ambulatory AMY William [facility] Start: 04-06-2023 End: 04-07-2023 ambulatory Chantal Bear Facility:[facility] Start: 04-06-2023 End: 04-06-2023 Patient encounter procedure Chanatl Bear [facility] Start: 04-02-2023 End: 04-02-2023 ambulatory EVAN JAY Not Available Start: 04-02-2023 End: 04-02-2023 Office outpatient visit 15 minutes Evan Jay DO Work Phone: [facility] Comment on above: Mammogram abnormal; Invasive ductal carcinoma of breast, right (CMS/HCC) Start: 03-26-2023 End: 03-26-2023 ambulatory Amy Hanna Facility:[facility] Start: 03-26-2023 End: 03-26-2023 ambulatory DO Randy Furlong Work Phone: [facility] Work Phone: Start: 03-26-2023 End: 03-26-2023 Departed Referred DO Randy Furlong Work Phone: [facility] [place] [facility] Start: 03-20-2023 End: 03-21-2023 ambulatory BRITTANI Driscoll RUSHINGGrey MICHAEL Facility:[facility] Start: 03-20-2023 End: 03-20-2023 Patient encounter procedure BRITTANI MICHAEL [facility] Start: 10-15-2022 Chart Update Randy Normanlo ng Work Phone: [facility] DO Work Phone: Start: 10-14-2022 ambulatory BRITTANI MICHAEL Facili ty:[id number] Start: 09-29-2022 Patient encounter procedure Randy Normanlong Work Phone: [facility] DO Work Phone: Start: 09-29-2022 ambulatory Ms. Brittani Gonzalez Sebastian Michael Facility: Start: 09-12-[address] Christopher Harrison II Facility: Start: 09-12-2022 Office outpatient visit 5 minutes Randy Jaramillo Furlong Work Phone: [facility] [place] [facility] DO Work Phone: Start: 08-22-[address] Christopher Harrison II Facility: Start: 08-22-2022 Office outpatient visit 5 minutes Randy G Furlong Work Phone: [facility] DO Work Phone: Start: 08-18-2022 Chart Update Randy Jaramillo Esteralanna ng Work Phone: [facility] DO Work Phone: Start: 08-15-2022 End: 08-16-2022 ambulatory Christopher Harrison Facility:[facility] Start: 08-15-2022 End: 08-15-2022 Patient encounter procedure Christopher Harrison [facility] Start: 07-21-[address] Christopher Harrison II Facility:[id number] Start: 07-14-2022 End: 07-15-2022 ambulatory Reid Bauer Facility:[facility] Start: 07-14-2022 End: 07-14-2022 Patient encounter procedure Reid Bauer [facility] Start: 12-27-2021 End: 12-27-[address] DAYANA BASHIR Facility:[facility] Start: 12-13-2021 End: 12-14-[address] KAYE JARQUIN Facility: Start: 11-22-2021 End: 11-22-2021 ambulatory Hua Kraus Welch Facility:[facility] Start: 11-11-2021 End: 11-11-2021 ambulatory Jesusita Gee Other [facility] [employer] Other Start: 11-11-2021 Office outpatient visit 15 minutes Jesusita Gee [facility] Start: 08-26-2021 End: 08-28-2021 ambulatory Hua Kraus Reny Facility:[facility] Start: 08-22-2021 End: 08-22-2021 ambulatory RANDY Rafi MONTROSE Facility:[facility] Start: 08-13-2021 End: 08-13-2021 ambulatory RANDY Jaramillo MONTROSE Facility:[facility] Start: 01-21-2021 End: 01-21-2021 ambulatory RANDY CALLE Facility:[facility] Start: 01-04-2021 End: 01-05-2021 ambulatory RANDY CALLE Facility: [facility] Procedures Date Procedure Procedure Detail Performing Clinician Start: 12-27-2021 Mammography Evan adrian DO Work Phone: Start: 03-02-2005 Hysterectomy Reid mcfarland Abdominal hysterectomy Mourh didi Traboulssi Biopsy of breast Jackson Thomas Chondrectomy of semilunar cartilage of knee Moghazala Traboulssi Core needle biopsy o f breast using ultrasound guidance Mourjanelle Hammi Excisional biopsy of breast Randy Calle Work Phone: Hysterectomy Randy jaramillo Work Phone: Lipoma of back (disorder) Reid Bauer Repair of anterior cruciate ligament of knee joint Mourjanelle Traboulghassani [facility]il[facility] Watson lssi Transurethral cystoscopy Haydeesobeida Bear NEGATED: Highlighted row has not occurred! Total colonoscopy Randy Calle Work Phone: Plan of Treatment Date Care Activity Detail Author Start: 06-06-2024 Screening for malign ant neoplasm of colon [facility] Start: 06-01-2023 End: 06-01-2023 Patient encounter procedure 06/01/2023 1:30 PM EDT Office Visit [facility] [address] [place] [id number] Evan Thompson DO [address] [place] [address] [facility] Start: 02-07-2024 FUV, Provider: Christopher Harrison, Status: Pen, Time: 2:50 PM FUV, Provider: Christopher Harrison, Status: Pen, Time: 2:50 PM -[facility] [facility] DO Work Phone: Start: 12-27-2022 Screening for malign ant neoplasm of breast Mammogram [facility] Start: 10-31-2022 Influenza vaccination Influenza Vacc ine (#1) [facility] Start: 09-29-2022 FUV, Provider: Brittani Avalos, Status: Pen, Time: 2:30 PM FUV, Provider: Brittani Avalos, Status: Pen, Time: 2:30 PM [facility] [place] [facility] DO Work Phone: Start: 09-18-2022 FUV, Provider: Christopher Harrison, Status: Pen, Time: 9:10 AM FUV, Provider: Christopher Harrison, Status: Pen, Time: 9:10 AM [facility] [place] [facility] DO Work Phone: Start: 09-12-2022 BPLM, Provider: Galo MURGUIA SPECIAL PROCEDURES TECHNOLOGIST 1,[id number], Status: Pen, Time: 9:00 AM BPCHECK, Provider: ASHLEIGH MURGUIA SPECIAL PROCEDURES TECHNOLOGIST 1,[id number], Status: Pen, Time: 9:00 AM [facility] DO Work Phone: Start: 08-22-2022 WILMAN, Provider: Galo MURGUIA SPECIAL PROCEDURES TECHNOLOGIST 1,[id number], Status: Pen, Time: 9:00 AM BPCHEJENN, Provider: ASHLEIGH MURGUIA SPECIAL PROCEDURES TECHNOLOGIST 1,[id number], Status: Pen, Time: 9:00 AM [facility] DO Work Phone: Start: 2000 Screening for malign ant neoplasm of cervix [facility] Start: 10-11-1991 Screening for malign ant neoplasm of cervix Pap Smear [facility] Start: 1970 Screening for malign ant neoplasm of colon [facility] Immunizations Immunization Date Immunization Notes Care Provider Fa cility 12-06-2020 SARS-CoV-2 (COVID-19 ) mRNA BNT-162b2 vax Reid Coatspsey [facility] Comment on above: Result Comment: 2022: TPV50 11-15-2020 SARS-CoV-2 (COVID-19 ) mRNA BNT-162b2 v[address] [facility] Comment on above: Result Comment: 2022: TPV50 11-20-2019 influenza virus vaccine, unspecified formulation Reid Coatspsey [facility] [place] 11-14-2019 influenza virus vaccine, unspecified formulation Reid Coastpsey [facility] 11-14-2019 influenza, seasonal, injectable Randy G Furlong Work Phone: [facility] [employer] DO Work Phone: 12-13-2018 influenza virus vaccine, unspecified formulation Reid Coatspsey [facility] 12-13-2018 influenza, seasonal, injectable Randy G Furlong Work Phone: [facility] [employer] DO Work Phone: 12-10-2017 influenza virus vaccine, unspecified formulation Reid Coatspsey [facility] 12-10-2017 influenza, injectable, quadrivalent, contains preservative Randy G Furlong Work Phone: [facility] [employer] DO Work Phone: 07-07-2017 tetanus toxoid, reduced diphtheria toxoid, and acellular pertussis vaccine, adsorbed Reid Juancarlos [facility] 01-19-2017 influenza virus vaccine, unspecified formulation Reid Juancarlos [facility] 01-19-2017 influenza, injectable, quadrivalent, contains preservative Randy G Furlong Work Phone: [facility] 250 DO Work Phone: 01-07-2016 influenza virus vaccine, unspecified formulation Reid Coatspsey [facility] 01-07-2016 influenza, injectable, quadrivalent, contains preservative Randy G Furlong Work Phone: [facility] 250 DO Work Phone: 12-01-2015 influenza virus vaccine, unspecified formulation Randy G Furlong Work Phone: [facility] [employer] DO Work Phone: 12-01-2015 influenza, unspecified formulation Reid Coatspsey [facility] 12-27-2014 influenza virus vaccine, unspecified formulation Reid Coatspsey [facility] 12-27-2014 influenza, injectable, quadrivalent, contains preservative Randy G Furlong Work Phone: [place] [address] DO Work Phone: 01-05-2014 influenza virus vaccine, unspecified formulation Reid Coatspsey [facility] 01-05-2014 influenza, injectable, quadrivalent, contains preservative Randy G Furlong Work Phone: [facility] 250 DO Work Phone: 12-29-2012 influenza virus vaccine, unspecified formulation Reid Juancarlos [facility] 12-29-2012 influenza, seasonal, injectable Randy G Furlong Work Phone: [facility] 250 DO Work Phone: 01-17-2009 novel [id number], preservative-free, injectable Randy Calle Work Phone: [facility] 250 DO Work Phone: NEGATED: Highlighted row has not occurred!04-10-2023 influenza virus vaccine, unspecified formulation Jackson RODRIGUEZWilliam [facility] [place] Payers Date Payer Category Payer Self-pay [id number] 2023 Medicaid [id number] 2023 Medicaid [facility]ICAID [facility] [id number] 2023-Present [phone] [address] [place] [address] Medicaid [id number] 2016 Unknown [id number] 1970 Unknown [id number] 2.16.840.1.382727.3.579.2.7 18 1970 Unknown [id number] 2.16.840.1.810326.3.579.2.7 18 1970 Unknown [id number] 2.16.840.1.632849.3.579.2.7 18 1970 Unknown [id number] 2.16.840.1.066150.3.579.2.7 18 1970 Unknown [id number] 2.16.840.1.518832.3.579.2.7 18 1970 Unknown [id number] 2.16.840.1.518743.3.579.2.7 18 1970 Unknown [id number] 2.16.840.1.626732.3.579.2.7 18 1970 Unknown [id number] 2.16.840.1.260842.3.579.2.5 93 1970 Unknown [id number] 2.16.840.1.903468.3.579.2.5 93 1970 Unknown [id number] 2.16.840.1.275476.3.579.2.3 56 1970 Unknown [id number] 2.16.840.1.978367.3.579.2.3 56 1970 Unknown [id number] 2.16.840.1.497610.3.579.2.3 56 1970 Unknown [id number] 2.16.840.1.495546.3.579.2.3 56 1970 Unknown [id number] 2.16.840.1.083057.3.579.2.1 068 1970 Unknown [id number] 2.16.840.1.101872.3.579.2.1 259 1970 Unknown [id number] 2.16.840.1.133495.3.579.2.1 286 1970 Unknown [id number] 2.16.840.1.685652.3.579.2.1 286 1970 Unknown [id number] 2.16.840.1.429315.3.579.2.1 286 1970 Unknown [id number] 2.16.840.1.447681.3.579.2.1 286 1970 Unknown [id number] 2.16.840.1.991079.3.579.2.1 286 1970 Unknown [id number] 2.16.840.1.596939.3.579.2.1 286 1970 Unknown [id number] 2.16.840.1.516309.3.579.2.1 286 1970 Unknown [id number] 2.16.840.1.604411.3.579.2.7 27 1970 Unknown [id number] 2.16.840.1.956848.3.579.2.7 27 1970 Unknown [id number] 2.16.840.1.806884.3.579.2.7 27 1970 Unknown [id number] 2.16.840.1.553844.3.579.2.7 27 1970 Unknown [id number] 2.16.840.1.327067.3.579.2.7 27 1970 Unknown [id number] 2.16.840.1.124398.3.579.2.1 244 1970 Unknown [id number] 2.16.840.1.271929.3.579.2.1 286 1959 Private Health Insurance [id number] 2.16.840.1.311491.19 Unknown Unknown [id number] Unknown [id number] 2.16.840.1.471740.3.579.2.5 31 Social History Date Type Detail Facility Unknown if ever smoked [employer] Other Start: 01-04-2023 Sex Assigned At F [facility] Start: 07-14-2022 End: 04-10-2023 Tobacco smoking status Never smoked tobacco (finding) [facility] Tobacco smoking status Never [facility] Start: 01-04-2023 Social alcohol use Social alcohol us e -[facility] 250 DO Work Phone: Start: 1970 Sex Assigned At Female F [facility] Start: 04-02-2023 Alcohol intake Lifetime non-d mayra (finding) [facility] Start: 01-04-2023 Alcohol Comment Caffeine intak e: 1-2 cups per day [facility] Start: 1970 Sex Assigned At Not on file [facility] Functional Status Date Assessment Result Facility 04-10-2023 Functional Status N/A [facility] [place] 07-14-2022 Functional Status N/A [facility] Clinical Notes 01-18-2021 to 04-12-2023 Catie Walker, COST CLERK - 04/02/2023 11:30 AM EST Note Date [...] quadrant of right female breast) plan left qcjuun-h-ufsv insertion under anesthesia, informed consent obtained. Ancef [...] virus vaccine, inactivate (more content not included)... [facility] Comment on above: Result Comment: Elec tronically Signed By: BRENNON JAMESON, Jackson Mays\Date and Time Signed: 04/12/23 19:14 EST 04-02-2023 History of Present illness Narrative Reason for Appointment: Patient ID: Yasmin Eason Widruthy is a 52 y.o. female who presents for abnormal test results (Discuss the results of her abnormal mammogram results done @ [facility]) Patient presents today for Consult appointment. [...] dysrhythmia HTN (hypertension) (CMS/HCC) Hypokalemia Migraine headache (CMS/FORMERLY [facility]) Family History Adopted: Yes Problem Relation Name [...] nursing note reviewed. Exam conducted with a lithographing machine operator present. Vitals: Estimated body mass index is [...] diagnostic right breast mammogram done at [facility] on 03/20/23. Results were highly suggestive of malignancy and radiology recommended that patient obtain an ultrasound guided breast biopsy. Patient had ultrasound guided right breast biopsy obtained at [facility] on 03/26/23, biopsy was sent to pathology at [facility]. Reviewed results with patient and discussed plan [...] and if patient does not hear from start up specialist by the time she receives letter to contact Specialist to schedule. Advised patient on VM to call office with any questions. --Catie Johnson LPN documented in this encounter [facility] 07-14-2022 Hospital Discharge instructions Patient Education 07/14/2022 [...] numbers. This can be done either in [place]ian (U.S.) or metric measurements. Note that charts and online BMI calculators are available to help you find your BMI quickly and easily without having to do these calculations yourself. To calculate your BMI in [place]ian ([place] measurements: 1.Measure your weight in pounds [...] Centers for Disease Control and Prevention: www.cdc.gov [place] Heart Association: www.heart.org National Heart, Lung, and Blood [place]: www.nhlbi.nih.gov Summary Body mass index (BMI) is a number that is calculated from a person's weight and height. BMI may help estimate how much of a person's weight is composed of fat. BMI can help identify those who may be at higher risk for certain medical problems. BMI can be measured using Bahamian measurements or metric measurements. BMI charts are used to identify whether you are underweight, normal weight, overweight, or obese. This information is not intended to replace advice given to you by your health care provider. Make sure you discuss any questions you have with your health care provider. Document Revised: 11/09/2019 Document Reviewed: 09/16/2019 [employer] Patient Education 2022 [employer] ([place] 07/14/2022 14:20:38 Upper Respiratory Infection, Adult Upper [...] medicines to help relieve symptoms, such as: Iejy-pwl-oulcbhe cold medicines. Cough suppressants. Coughing is a [...] and other clear broths. General instructions Take xvjz-rlz-mgaopwb and prescription medicines only as told by [...] and water are not available, use hand program/music director. Avoid touching your mouth, face, eyes, or [...] provider. Document Revised: 09/18/2021 Document Reviewed: 09/18/2021 [employer] Patient Education 2022 [employer] ([employer]). Follow Up Care 07/14/2022 13:35:56 With:BRENNON JAMESON, BOBBY Sifuentes Address:Unknown When: Unknown [facility] 11-12-2021 History general N arrative - Reported Type Medical History heart dysrythmia Medical History Night sweats Medical History Insomnia, unspecified type Medical History hypertension Surgical History hysterectomy dec 2003 Surgical History acl reconstruction right knee n ov 2004 Surgical History leg dec 2014 Hospitalization History see above [employer] Other 09-12-2022 Evaluation note* Encounter Date Diagnosis Assessment Notes [...] weeks for the cough to go away [employer] Other [id number] Note [id number]06-28-2022 [id number]#1.00[facility] 08-26-2021 [facility] SURGERY Clinical Discharge Summary PERSON INFORMATION Name YASMIN JONES Age 50 Years 1970 Sex FEMALE Language Bahamian PCP RANDY CALLE Marital Status Med Service Ambulatory Surgery Acct# Arrival 08/26/2021 11:01:00 Visit Reason SURGERY- LEFT KNEE SCOPE Acuity LOS 003 04:51 Address: [facility] [id number] Comment: PROVIDER INFORMATION VITALS INFORMATION Vital Sign Triage Latest Temp Oral Temp Temporal Temp Intravascular Temp Axillary Temp Rectal 02 Sat 100 % 97 % Respiratory Rate Peripheral Pulse Rate Apical Heart Rate Blood Pressure / 90 mmHg / 103 mmHg Comment: MEDICAL INFORMATION Allergy Info: Adhesive Bandage; Demerol Prescriptions Given: acetaminophen-hydrocodone (!-Congress 5 mg-325 mg oral tablet) 1 tab(s) [...] Oral every day. potassium chloride (Potassium Chloride (Uxp-Ijqo-Pqv 10) 10 mEq oral tablet, extended release) 1 tab(s) Oral every day. traZODone (traZODone 50 mg oral tablet) 1 tab(s) Oral once a day (at bedtime). Medication List: Medications to Continue That Have Not Changed Other Medications acetaminophen-hydrocodone (!-Congress 5 mg-325 mg oral tablet) 1 tab(s) Oral Every 6 hours as needed as needed for pain. carvedilol (carvedilol 12.5 mg oral tablet) 1 tab(s) Oral 2 times a day. cyclobenzaprine (cyclobenzaprine 10 mg oral tablet) 1 tab(s) Oral At bedtime as needed for spasm. hydroCHLOROthiazide (hydroCHLOROthiazide 25 mg oral tablet) 1 tab(s) Oral every day. potassium chloride (Potassium Chloride (Jvu-Mapp-Qrm 10) 10 mEq oral tablet, extended release) 1 tab(s) Oral every day. traZODone (traZODone 50 mg oral tablet) 1 tab(s) Oral once a day (at bedtime). Medications to Continue That Have Not Changed Other Medications acetaminophen-hydrocodone (!-Congress 5 mg-325 mg oral tablet) 1 tab(s) Oral Every 6 hours as needed as needed for pain. carvedilol (carvedilol 12.5 mg oral tablet) 1 tab(s) Oral 2 times a day. cyclobenzaprine (cyclobenzaprine 10 mg oral tablet) 1 tab(s) Oral At bedtime as needed for spasm. hydroCHLOROthiazide (hydroCHLOROthiazide 25 mg oral tablet) 1 tab(s) Oral every day. potassium chloride (Potassium Chloride (Fxr-Pazc-Lxo 10) 10 mEq oral tablet, extended release) 1 tab(s) Oral every day. traZODone (traZODone 50 mg oral tablet) 1 tab(s) Oral once a day (at bedtime). Medications to Continue That Have Not Changed Other Medications acetaminophen-hydrocodone (!-Congress 5 mg-325 mg oral tablet) 1 tab(s) Oral Every 6 hours as needed as needed for pain. carvedilol (carvedilol 12.5 mg oral tablet) 1 tab(s) Oral 2 times a day. cyclobenzaprine (cyclobenzaprine 10 mg oral tablet) 1 tab(s) Oral At bedtime as needed for spasm. hydroCHLOROthiazide (hydroCHLOROthiazide 25 mg oral tablet) 1 tab(s) Oral every day. potassium chloride (Potassium Chloride (Jhz-Nvxq-Zks 10) 10 mEq oral tablet, extended release) [...] Restrictions: DISCHARGE INFORMATION Discharge Disposition: Discharge Location: [facility] REASON INCOMPLETE INFORMATION PATIENT EDUCATION INFORMATION Instructions: [facility] Follow up: DIAGNOSIS Internal derangement of left knee Comment: PHYS DOC [facility]06-16-2022 [facility] SURGERY Clinical Discharge Summary PERSON INFORMATION Name YASMIN JONES Age 50 Years 1970 Sex FEMALE Language Bahamian PCP RANDY CALLE Marital Status Med Service Ambulatory Surgery Acct# Arrival Visit Reason SURGERY - LEFT KNEE SCOPE Acuity LOS 010 03:19 Address: [address] [place] [address] Comment: PROVIDER INFORMATION VITALS INFORMATION Vital Sign [...] Oral every day. potassium chloride (Potassium Chloride (Gcb-Okya-Cap 10) 10 mEq oral tablet, extended release) 1 tab(s) Oral every day. traZODone (traZODone 50 mg oral tablet) 1 tab(s) Oral once a day (at bedtime). Medication List: Medications That Were Updated - Follow Below Instructions Other Medications Updated: potassium chloride (Potassium Chloride (Tjl-Rkmd-Exq 10) 10 mEq oral tablet, extended release) [...] Other Medications Updated: potassium chloride (Potassium Chloride (Sha-Mkgh-Wfx 10) 10 mEq oral tablet, extended release) [...] Other Medications Updated: potassium chloride (Potassium Chloride (Cdm-Yjnu-Qir 10) 10 mEq oral tablet, extended release) [...] Restrictions: DISCHARGE INFORMATION Discharge Disposition: Discharge Location: [facility] REASON INCOMPLETE INFORMATION PATIENT EDUCATION INFORMATION Instructions: Follow up: With: Address: When: MYESHA VINSON [address] [place], [place] [id number] Business (1) 09/03/2021 9:15 AM With: Address: When: RANDY NORMANMAGALYS [address] [place], [place] [address]herson [place] [id number] [facility] (1) Type Location Start [facility] Lab Collection ([facility]) LAB 08/21/2021 4:00 PM 08/21/2021 4:10 PM Confirmed Surgery ([facility]) [facility] Main OR 08/26/2021 1:00 PM 08/26/2021 1:30 PM Confirmed DIAGNOSIS Comment: PHYS DOC [facility]11-24-2021 Note [id number]11-23-2021 [id number] 01-21-2021 [facility] SURGERY Clinical Discharge Summary PERSON INFORMATION Name YASMIN JONES Age 50 Years 1970 Sex FEMALE Language Bahamian PCP RANDY CALLE Marital Status [facility] Service Ambulatory Surgery Acct# Arrival 01/21/2021 06:05:01 Visit Reason SURGERY - RIGHT KNEE ARTHROSCOPY Acuity LOS 032 23:00 Address: [place] [address] Comment: PROVIDER INFORMATION VITALS INFORMATION Vital Sign [...] INFORMATION Instructions: Reny- Post Op Knee Arthroscopy (JIA) Follow up: With: Address: When: MYESHA VINSON [address] [place] [address], [address] [place] [address] Business (1) 01/30/2021 11:00 AM With: Address: When: RANDY NORMANMAGALYS [facility] [place] [address] [place] [address] Business (1) DIAGNOSIS Internal derangement of right knee; Tear of meniscus of right knee Comment: AGUSTIN ROQUE [facility]11-19-2021 NoteSpoke to pt on phone regarding upcoming procedure. pt aware to be here at 6am, NPO after midnight, and need for ride after procedure. pt verbalizes understanding. [Electronically Signed on: 01/18/2021 11:03 EST] Jen Khoury RN [Verified on: 01/18/2021 11:03 EST] [facility] No data available for this section [facility] Evaluation + Plan note Future Appointments Appointment Date:04/10/2023 03:20:00 PM Scheduled Provider:Jackson WILLETT MD Location:[facility] Appointment Type: Established [facility] assessment information available [facility] Work Phone: Evaluation note* Diagnosis Mammogram abnormal [...] medication regimen. She denies medication side effects. [facility] 250 DO Work Phone: Hospital Discharge instructions No data available for this section [facility] No data available for this section [facility] Summary Purpose Family History [...] section and content) DATE CREATED AUTHOR 07/28/2021 [facility] dical Specialist DATE CREATED AUTHOR AUTHOR'S ORGANIZ ATION 09/22/2021 [facility] DATE CREATED AUTHOR AUTHOR'S ORGANIZ ATION 12/01/2021 [facility] DATE CREATED AUTHOR AUTHOR'S ORGANIZ ATION 01/04/2022 [facility] DATE CREATED AUTHOR AUTHOR'S ORGANIZ ATION 09/30/2022 [facility] DATE CREATED AUTHOR AUTHOR'S ORGANIZ ATION 10/01/2022 [employer] DATE CREATED AUTHOR AUTHOR'S ORGANIZ ATION 10/17/2022 [facility] DATE CREATED AUTHOR AUTHOR'S ORGANIZ ATION 04/04/2023 [facility] dical Specialists EPIC DATE CREATED AUTHOR AUTHOR'S ORGANIZ ATION 04/10/2023 [facility] DATE CREATED AUTHOR AUTHOR'S ORGANIZ ATION 04/13/2023 [facility] DATE CREATED AUTHOR AUTHOR'S ORGANIZ ATION 04/15/2023 [place] [facility] DATE CREATED AUTHOR AUTHOR'S ORGANIZ ATION 04/16/2023 [facility] DATE CREATED AUTHOR AUTHOR'S ORGANIZ ATION 04/21/2023 [facility] REASON FOR VISIT (unrecogniz ed section and content) Reason Comments abnormal test results Discuss the result s of her abnormal mammogram results done @ [facility] Patient Care team informatio n (unrecognized section and content) Team Status: Active Member Role Status Dates Randy Calle DO Primary Care Provider Active Team Status: Inactive Member Role Status Dates Randy Calle DO Primary Care Provider Active Start: March 26, 2023 End: March 26, 2023 GUY Khan ETHNOARCHAEOLOGIST-C Attending Provider Active Start: March 26, 2023 End: March 26, 2023 Ship Boss Relationship Specialty Start Date End Date Randy Calle MD [address] [facility] [place] [address] PCP - General Family Medicine 04/02/23 Goals [...] BE BASED ON THE PRIMARY CLINICAL RECORDS. [facility] [employer] [facility]. provides no warranty or guarantee of the accuracy or completeness of information in this document.
== END 2023-04-24 13:50 | disposition home or self-care (01) ==
LOC: US 13:49
PROVIDERS: PCP Nurse Practitioner Family; Visit Provider Internal Medicine Hematology & Oncology
DX: C50.811 Malignant neoplasm of overlapping sites of right female breast (principal); Z15.09 Genetic susceptibility to other malignant neoplasm; C77.9 Secondary and unspecified malignant neoplasm of lymph node, unspecified; R11.2 Nausea with vomiting, unspecified; Z51.12 Encounter for antineoplastic immunotherapy; Z51.11 Encounter for antineoplastic chemotherapy; D70.1 Agranulocytosis secondary to cancer chemotherapy; Z79.899 Other long term (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 therapy
CPT/HCPCS: 76830

== ENCOUNTER 2023-04-28 07:29 | Outpatient (RCR) | payer MEDICAID, SELFPAY ==
[2023-04-08 13:14] LABS: Basophils Absolute Auto 0.1 10^3/uL (0.0-0.1); Basophils Percent Auto 1.2 % (0.2-2.0); Eosinophils Absolute Auto 0.3 10^3/uL (0.0-0.7); Eosinophils Percent Auto 2.7 % (0.9-7.0); Hematocrit 40.9 % (36.0-48.0); Hemoglobin 14.1 g/dL (12.0-16.0); Immature Granulocytes Abs Auto 0.03 10^3/uL (0.00-0.03); Immature Granulocytes Pct Auto 0.3 % (0.0-0.5); Lymphocytes Percent Auto 32.5 % (20.5-60.0); Mean Corpuscular HGB Conc 34.5 g/dL (29.9-35.2); Mean Corpuscular Hemoglobin 30.7 pg (26.7-34.0); Mean Corpuscular Volume 88.9 fL (81.0-99.0); Mean Platelet Volume 10.3 fL (9.5-13.5); Monocytes Absolute Auto 0.7 10^3/uL (0.3-0.8); Monocytes Percent Auto 7.2 % (1.7-12.0); Neutrophils Absolute Auto 5.1 10^3/uL (1.4-6.5); Neutrophils Percent Auto 56.1 % (43.0-75.0); Platelet Count 433 10^3/uL (150-450); White Blood Count 9.1 10^3/uL (4.0-11.0)
[2023-04-08 14:44] LABS: Free T4 0.96 ng/dL (0.76-1.46)
[2023-04-08 14:50] LABS: Alanine Aminotransferase 28 U/L (14-59); Albumin Globulin Ratio 1.1; Alkaline Phosphatase 70 U/L (46-116); Aspartate Amino Transferase 21 U/L (15-37); BUN Creatinine Ratio 21.1; Bilirubin Total 0.8 mg/dL (0.2-1.0); Calcium 9.4 mg/dL (8.5-10.1); Carbon Dioxide 30.3 mmol/L (21.0-32.0); Chloride 100 mmol/L (98-107); Estimated GFR (African America >60 (>=60); Estimated GFR (Non-African Ame >60 (>=60); Globulin 3.7 g/dL; Glucose 93 mg/dL (74-106); Magnesium 1.8 mg/dL (1.8-2.4); Potassium 3.3 mmol/L (3.5-5.1); Sodium 140 mmol/L (136-145); Thyroid Stimulating Hormone 5.079 uIU/mL (0.358-3.740); Total Protein 7.7 g/dL (6.4-8.2)
[2023-04-09 09:09] LABS: HBsAg Screen Negative (Negative); Hep B Core Ab, Tot Negative (Negative); Hep B Surface Ab Reactive (.)
[2023-04-21 08:35] LABS: Basophils Absolute Auto 0.1 10^3/uL (0.0-0.1); Eosinophils Absolute Auto 0.3 10^3/uL (0.0-0.7); Eosinophils Percent Auto 3.2 % (0.9-7.0); Hematocrit 36.6 % (36.0-48.0); Hemoglobin 12.7 g/dL (12.0-16.0); Immature Granulocytes Abs Auto 0.02 10^3/uL (0.00-0.03); Immature Granulocytes Pct Auto 0.2 % (0.0-0.5); Lymphocytes Absolute Auto 2.7 10^3/uL (1.2-3.8); Lymphocytes Percent Auto 33.5 % (20.5-60.0); Mean Corpuscular HGB Conc 34.7 g/dL (29.9-35.2); Mean Corpuscular Hemoglobin 30.5 pg (26.7-34.0); Mean Corpuscular Volume 87.8 fL (81.0-99.0); Mean Platelet Volume 9.4 fL (9.5-13.5); Monocytes Absolute Auto 0.4 10^3/uL (0.3-0.8); Monocytes Percent Auto 4.6 % (1.7-12.0); Neutrophils Absolute Auto 4.6 10^3/uL (1.4-6.5); Neutrophils Percent Auto 57.5 % (43.0-75.0); Platelet Count 354 10^3/uL (150-450); Red Blood Count 4.17 10^6/uL (4.20-5.40); Red Cell Distribution Width 11.8 % (11.0-15.0)
[2023-04-21 08:52] LABS: Alanine Aminotransferase 23 U/L (14-59); Albumin Globulin Ratio 1.1; Albumin Level 3.6 g/dL (3.4-5.0); Alkaline Phosphatase 75 U/L (46-116); Aspartate Amino Transferase 17 U/L (15-37); BUN Creatinine Ratio 19.6; Bilirubin Total 0.6 mg/dL (0.2-1.0); Calcium 9.2 mg/dL (8.5-10.1); Carbon Dioxide 29.4 mmol/L (21.0-32.0); Chloride 101 mmol/L (98-107); Estimated GFR (African America >60 (>=60); Estimated GFR (Non-African Ame 57 (>=60); Globulin 3.4 g/dL; Glucose 134 mg/dL (74-106); Potassium 3.4 mmol/L (3.5-5.1); Sodium 140 mmol/L (136-145)
[2023-04-21 08:57] LABS: Magnesium 1.4 mg/dL (1.8-2.4); Thyroid Stimulating Hormone 3.931 uIU/mL (0.358-3.740)
[2023-04-21 09:46] VITALS: BP 118/65; PULSE 89; RESP 16; TEMP 36.1; O2SAT 97
--- NOTE | 2023-04-21 09:54 | PC.NURSE ---
0908: Pt. to [facility] amb. accompanied by jovan. Seated in recliner. Labs drawn per this RN when pt. in Dr. Gregory office. Awaiting results. VSS. Pt. given blanket, pillow and water. 0930: Pt. and patient's gemmae educated on how to flush picc line daily. Both relay understanding. Picc line intact to right upper arm and without s&s of infection. Flushes easily with good blood return.
[2023-04-21] MEDS: DIPHENHYDRAMINE HCL IV (09:59)
[2023-04-21] MEDS: DEXAMETHASONE SODIUM PHOSPHATE IV (09:59)
[2023-04-21] MEDS: [UNRECOGNIZED DRUG - OTHER] IV (09:59)
[2023-04-21] MEDS: PALONOSETRON HCL 0.25 MG/5 ML VIAL IV (10:00)
[2023-04-21] MEDS: FAMOTIDINE 20 MG TABLET PO (10:00)
--- NOTE | 2023-04-21 10:29 | PC.NURSE ---
0959: Pre-meds initiated at this time. See MAR. Pt.without c/o or needs. 1015: Up to bathroom to void.
[2023-04-21] MEDS: SODIUM CHLORIDE 0.9% IV ×3 (10:50→13:06)
[2023-04-21] MEDS: APREPITANT IV (10:50)
[2023-04-21] MEDS: PEMBROLIZUMAB 200 MG in 0.9 % SODIUM CHLORIDE 100 ML 216 MG IV (11:34)
--- NOTE | 2023-04-21 11:42 | PC.NURSE ---
1134: IV Keytruda initiated at this time. Lunch tray provided. Denies needs.
[2023-04-21] MEDS: PACLITAXEL IV (12:12)
[2023-04-21 12:44] VITALS: BP 118/70; PULSE 86; RESP 14; TEMP 37.1; O2SAT 95
--- NOTE | 2023-04-21 12:45 | PC.NURSE ---
Pt. drowsy, resting off and on with eyes closed. VSS. Denies c/o at this time. Fiancee at chair side.
[2023-04-21] MEDS: CARBOPLATIN IV (13:06)
--- NOTE | 2023-04-21 13:14 | PC.NURSE ---
1310 taxol infused, patient tolerataed without any problems. Carbo initiated over 30 mins/
[2023-04-21 14:13] VITALS: BP 136/78; PULSE 81; RESP 16; TEMP 36.6; O2SAT 98
--- NOTE | 2023-04-21 14:20 | PC.NURSE ---
1340: IV Carboplatin completed at this time. VSS. Tolerated all infusions without s&s of adverse reactions. PICC line flushed with saline and chg cap applied. Reminded pt. of potential delayed reactions, and to seek medical attention if needed. Pt. relays understanding. Up to bathroom to void. 1400: Pt. d/c'd amb. to home with jovan.
[2023-04-22 08:11] LABS: Estradiol 21.8 pg/mL (.); FSH 41.7 mIU/mL (.)
--- NOTE | 2023-04-28 11:29 | PC.NURSE ---
1100 Arrival ambulatory with significant other. Alert oriented. PICC intact rt upper arm intact. site sl reddened around catheter. excellent blood return. Flushes well. Labs drawn and sent to lab.
[2023-04-28 11:33] LABS: Basophils Absolute Auto 0.1 10^3/uL (0.0-0.1); Basophils Percent Auto 1.1 % (0.2-2.0); Eosinophils Absolute Auto 0.4 10^3/uL (0.0-0.7); Eosinophils Percent Auto 6.8 % (0.9-7.0); Hematocrit 34.4 % (36.0-48.0); Immature Granulocytes Abs Auto 0.03 10^3/uL (0.00-0.03); Immature Granulocytes Pct Auto 0.5 % (0.0-0.5); Lymphocytes Absolute Auto 1.7 10^3/uL (1.2-3.8); Lymphocytes Percent Auto 28.3 % (20.5-60.0); Mean Corpuscular HGB Conc 34.9 g/dL (29.9-35.2); Mean Corpuscular Hemoglobin 30.7 pg (26.7-34.0); Mean Platelet Volume 10.3 fL (9.5-13.5); Monocytes Absolute Auto 0.3 10^3/uL (0.3-0.8); Monocytes Percent Auto 4.4 % (1.7-12.0); Neutrophils Absolute Auto 3.6 10^3/uL (1.4-6.5); Neutrophils Percent Auto 58.9 % (43.0-75.0); Platelet Count 311 10^3/uL (150-450); Red Blood Count 3.91 10^6/uL (4.20-5.40); Red Cell Distribution Width 11.9 % (11.0-15.0); White Blood Count 6.1 10^3/uL (4.0-11.0)
[2023-04-28 11:49] LABS: Alanine Aminotransferase 30 U/L (14-59); Albumin Level 3.4 g/dL (3.4-5.0); Alkaline Phosphatase 68 U/L (46-116); Anion Gap 11.1; Aspartate Amino Transferase 20 U/L (15-37); BUN Creatinine Ratio 22.9; Bilirubin Total 0.7 mg/dL (0.2-1.0); Calcium 8.6 mg/dL (8.5-10.1); Carbon Dioxide 30.2 mmol/L (21.0-32.0); Chloride 102 mmol/L (98-107); Estimated GFR (African America >60 (>=60); Estimated GFR (Non-African Ame 53 (>=60); Globulin 3.3 g/dL; Glucose 94 mg/dL (74-106); Potassium 3.3 mmol/L (3.5-5.1); Sodium 140 mmol/L (136-145); Total Protein 6.7 g/dL (6.4-8.2)
[2023-04-28 11:57] LABS: Magnesium 1.6 mg/dL (1.8-2.4); Thyroid Stimulating Hormone 3.871 uIU/mL (0.358-3.740)
--- NOTE | 2023-04-28 12:16 | PC.NURSE ---
1210 returned to chair from office visit with Dr. Hope,
[2023-04-28 12:17] VITALS: BP 111/70; PULSE 77; RESP 18; TEMP 36.4; O2SAT 93
[2023-04-28] MEDS: POTASSIUM CHLORIDE 20 MEQ in 0.9 % SODIUM CHLORIDE 250 ML 130 MEQ IV (12:35)
[2023-04-28] MEDS: FAMOTIDINE 20 MG TABLET PO (12:48)
--- NOTE | 2023-04-28 13:56 | PC.NURSE ---
1300 eats meal, significant other at bedside
--- NOTE | 2023-04-28 14:11 | PC.NURSE ---
1400 Laying back in recliner, eyes shut, respirations with ease.
[2023-04-28] MEDS: [UNRECOGNIZED DRUG - OTHER] IV (14:25)
[2023-04-28] MEDS: DIPHENHYDRAMINE HCL IV (14:25)
[2023-04-28] MEDS: DEXAMETHASONE SODIUM PHOSPHATE IV (14:25)
[2023-04-28] MEDS: SODIUM CHLORIDE 0.9% IV (14:50)
[2023-04-28] MEDS: PACLITAXEL IV (14:50)
[2023-04-28 15:45] VITALS: BP 145/80; PULSE 77; RESP 18; TEMP 36.3; O2SAT 93
--- NOTE | 2023-04-28 16:02 | PC.NURSE ---
1550 Infusion completed, PIcc flushed with 20ml of ns followed by heparin lock solution. released ambulatory
[2023-04-29 04:07] LABS: Cancer Antigen (CA) 125 11.1 U/mL (0.0-38.1)
== END 2023-04-30 23:59 | disposition home or self-care (01) ==
LOC: INF 07:29
PROVIDERS: PCP Nurse Practitioner Family; Visit Provider Internal Medicine Hematology & Oncology
DX: Z51.11 Encounter for antineoplastic chemotherapy (principal); C50.811 Malignant neoplasm of overlapping sites of right female breast; C77.9 Secondary and unspecified malignant neoplasm of lymph node, unspecified; Z15.09 Genetic susceptibility to other malignant neoplasm; R11.2 Nausea with vomiting, unspecified; D70.1 Agranulocytosis secondary to cancer chemotherapy; Z79.899 Other long term (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 therapy; Z90.710 Acquired absence of both cervix and uterus; I10 Essential (primary) hypertension
CPT/HCPCS: 36415; 36569; 36592; 80053; 82670; 83001; 83002; 83735; 84439; 84443; 85025; 86300; 86304; 86704; 86706; 87340; 96366; 96367; 96375; 96413; 96417; 99211; C1887; G0463; J0185; J1100; J2469; J3480; J9045; J9267; J9271

== ENCOUNTER 2023-05-08 08:52 | Outpatient (OUT) | payer OTHER, SELFPAY ==
--- NOTE | 2023-05-08 08:55 | ECG_ITS ---
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
--- OUTSIDE RECORDS SUMMARY | 2023-05-08 09:01 | XMS_ITS | CCD ---
Author Name Unknown Address [address] [place] [address] [facility] Care Team Providers Care Chimney Mechanic Name Role Phone Jesusita Gee Unavailable RANDY CALLE Primary Care Unavailable Reny, Hua Kraus Admitting Unavail able Hua Oglesby Attending Unavail able Reny, Hua Kraus Admitting Unavail able RANDY ACLLE Primary Care Unavailable [place], Hua Kraus Attending Unavail able RANDY CALLE Primary Care Unavailable Paco Giraldo Attending Unavailable RNADY CALLE Primary Care Unavailable Reny, Hua Kraus Admitting Unavail able RANDY CALLE Consulting Unavailable [place], Hua Kraus Attending Unavail able Reny, Hua Kraus Admitting Unavail able RANDY CALLE Primary Care Unavailable Hiral Small Consulting Unavailable Reny, Hua Kraus Attending Unavail able RANDY CALLE Primary Care Unavailable [place], Hua Kraus Admitting Unavail able Reny, Hua Kraus Attending Unavail able [place], Hua Kraus Admitting Unavail able RANDY CALLE Primary Care Unavailable Reny, Hua Kraus Attending Unavail able KRYSTEN, DR ANNE Admitting Unavailable KRYSTEN, DR ANNE Attending Unavailable ALVA, DR RANDY Jaramillo Primary Care Unavailable KRYSTEN, DR ANNE Consulting Unavailable MILKA, DR KAYE Reynoso Admitting Unavailable MILKA, DR KAYE Reynoso Attending Unavailable ALVA, DR RANDY Jaramillo Primary Care Unavailable KRYSTEN, DR ANNE Consulting Unavailable [place], DR HIRAL Meza Consulting Unavailable MILKA, DR KAYE [place] Consulting Unavailable Jackson WILLETT Primary Care Physician RANDY CALLE Primary Care Physician Randy Calle Unavailable Unavailable Unavailable Christy WRIGHT, Dr. Christopher Gtz Attending Unavailable McGuinn II, Dr. Christopher Gtz Referring Unavailable Furlong, Dr. Randy Meier [facility] Care Unava ilable Shakeeluinn II, Dr. Christopher Gtz Attending Unavailable Shakeeluinn II, Dr. Christopher Gtz Referring Unavailable Furlong, Dr. Randy Meier [facility] Care Unava ilable Shakeeluinn II, Dr. Christopher Gtz Attending Unavailable Shakeeluinn II, Dr. Christopher Gtz Referring Unavailable Furlong, Dr. Randy Meier [facility] Care Unava ilable Alec, Ms. Brittani Rushing Attending Unaziggy taveras Michael, Ms. Brittani Rushing Referring Unavai lable Furlong, Dr. Randy Meier [facility] Care Unava ilable BRITTANI AVALOS Attending Unavailable BRITTANI AVALOS Referring Unavailable Furlong, Dr. Randy Meier [facility] Unava ilable Alva, DO Padilla Primary Care Provider Jacques, OFFSET LABEL REWINDER Emelia Attending Provider EVAN THOMPSON Attending Unavailable Randy Calle MD Primary Care Provider [phone] Jacques, Emelia Attending Unavailable Jacques, Emelia Admitting Unavailable Randy Calle Primary Care Unavailable JACQUES, EMELIA L Referring Unavailable JACQUES, EMELIA L Primary Care Unavailable JACQUES, EMELIA L Referring Unavailable JACQUES, EMELIA L Primary Care Unavailable JACQUES, EMELIA L Referring Unavailable JACQUES, EMELIA L Primary Care Unavailable JACQUES, EMELIA L Referring Unavailable JACQUES, EMELIA L Primary Care Unavailable JACQUES, EMELIA L Referring Unavailable JACQUES, EMELIA L Primary Care Unavailable JACQUES, EMELIA L Referring Unavailable JACQUES, EMELIA L Primary Care Unavailable JACQUES, EMELIA L Referring Unavailable JACQUES, EMELIA L Primary Care Unavailable CHRISTOPHER H[place]ISON Attending Unavailable RANDY CALLE Primary Care Unavailab le HE, CHRISTY Referring Unavailable JACQUES, EMELIA L Primary Care Unavailable Christopher [place] Attending Unavailable Christopher [place] Admitting Unavailable Reid Bauer Attending Unavailable [place] WILLETT Attending Unavailable BRITTANI MICHAEL Attending Unavailable BRITTANI MICHAEL Admitting Unavailable Chantal Bear Admitting Unavailable Chantal Bear Attending Unavailable Allergies Allergy Classification Reported Allergen(s) Allergy Type Date of Onset Reaction(s) Facility (17 sources) Meperidine; Translations: [meperidine] Drug Allergy 9 anaphylaxis, Eruption of skin (disorder), Swelling, Unknown [facility] (1 source) Adhesive bandage; Translations: [Adhesive Bandage] Propensity to adverse reactions (disorder) [facility] Repository (3 sources) Meperidine; Translations: [Demerol] Drug Allergy [address] [facility] Repository (4 sources) Adhesive agent; Translations: [ADHESIVE] Drug allergy (disorder) 5 [facility] Repository (2 sources) Meperidine Drug Allergy 3 Unknown [facility] Healthcare (2 sources) Wound Dressing Adhesive Drug Allergy 3 Unknown [facility] (1 source) Meperidine Drug Allergy 2 [facility] Repository Medications Current Medications Medication Drug Class(es) Dates Sig (Normalized) Sig (Original) [id number] 200 actuat albuterol 0.09 mg/actuat metered dose [...] day(s), # 21 cap(s), Refills(s) 0, Pharmacy: [facility]/pharmacy #[id number], 180, cm, 07/14/22 14:05:00 EDT, [...] Corticosteroid Start: 04-06-2023 Flonase 0.05 m g/inh [place] 1 spray(s), Nasal, BID, Refill(s) 0 Start [...] 18-Aug-2022 Active take 4 tablets by mo [facility] once daily potassium chloride CR [...] Test Name Value Interpretation Reference Range Facility Insurance Correspondenceon 0 05-04-2023 Insurance Correspondence [id number]#1.00T IFF Normal [facility] Consent for Procedure/Surger yon 04-14-2023 Consent for Procedure/Surgery [id number]#1.00T IFF Normal [facility] Ambulatory Visit Summaryon 0 04-10-2023 Ambulatory Visit Summary YASMIN JNOES :1970 Visit Date:04/10/2023 Ambulatory Visit Instructions Your [...] for choosing us for your care. Normal [facility] Consultation Noteon 04-10-19 24 Consultation Note [id number]#1.00T IFF Normal [facility] Lab Reportson 04-10-2023 Lab Reports [id number]#1.00T IFF Normal [facility] Surgical Pathologyon 024 Surgical Pathology Normal [facility] Comment on above: Result Comment: [facility] [address] [place] [address] Surgical Pathology Consultation Patient Name:YASMIN JONES ADOB:1970 (Age: 52)Gender:FTaken:4Reported:4Physician(s):Christy He MD ([phone])Copy To: Rec. #:[id number]: #[id number] Final Pathologic Diagnosis Right breast, 4:00 mass , core needle biopsy ([place], [place]; [id number], 03/26/2023): - INVASIVE MAMMARY CARCINOMA, DUCTAL TYPE with areas of necrosis. - Greatest length of invasive carcinoma: 11 mm - Histologic grade: [place] histologic score: 8/9 - Glandular (acinar)/tubular differentiation: 3 - Nuclear pleomorphism: 3 - Mitotic rate: 2 - In-situ component: Not definitively identified. - Lymph-vascular invasion: Not definitively identified. - Microcalcifications: Present. COMMENT: E-cadherin immunostain is strongly and diffusely positive, supporting the above diagnosis of ductal carcinoma. Control is satisfactory. Breast biomarkers are performed and show ER: Positive (12-15% of nuclear staining, weak staining); MS: Negative; HER2: Negative (0% of cells with uniform intense complete membrane staining). Internal controls for the biomarkers are present and stain as expected. Intradepartmental consultation has been completed on this case by a second pathologist who concurs with the above diagnosis. Report Electronically Signed Out eak/04/21/2023Chayo Wu MD Interpretation [place] [address], License number: [id number]. Clinical History Invasive ductal carcinoma. Gross Description Received are 10 prepared slides and 1 block labeled [id number] from [facility], that are accompanied by the contributing pathologist???s report that bears this patient???s name and the accession number as it appears on the slides. EAK Specimen(s) Received Consult case from [facility], 10 slides and 1 block labeled [id number] Fee Codes(s): 1; 51999 Outside Mammographyon 2023 Outside Mammography [id number]#1.00T IFF Normal [facility] Pathology Noteon 04-07-2023 Pathology Note [id number]#1.00T IFF Normal [facility] RAD - Ultrasound Reporton RAD - Ultrasound Report [id number]#1.00T IFF Normal [facility] BMPon 02-05-2024 Anion gap [Moles/Vol] 10 mmol/L Normal 6-16 [facility] Comment on above: Performed By: #### 2 987005, [id number] ####[facility] [address] [place] [address] BUN/Creat Ratio 18 No Units Normal 10-20 [facility] Comment on above: Performed By: #### 2 792810, [id number] ####[facility] [address] [place] [address] Calcium [Mass/Vol] 10.5 mg/dL Normal 8.9-11.1 [facility] Comment on above: Performed By: #### 2 411961, 50539609 ####[address] [place] [address] Chloride [Moles/Vol] 101 mmol/L Normal 101-111 [facility] Comment on above: Performed By: #### 2 656118, [id number] ####[facility] [address] [place] [address] CO2 [Moles/Vol] 32 mmol/L High 21-31 [facility] Comment on above: Performed By: #### 2 498536, 93390473 ####[facility] [address] [place] [address] Creatinine [Mass/Vol] 1.0 mg/dL Normal 0.5-1.3 [facility] Comment on above: Performed By: #### 2 413484, 61772488 ####[facility] [address] [place] [address] Glucose [Mass/Vol] 90 mg/dL Normal 55-199 [facility] Comment on above: Performed By: #### 2 626180, 93734242 ####[facility] [address] [place] [address] Potassium [Moles/Vol] 3.4 mmol/L Low 3.5-5.3 [facility] Comment on above: Performed By: #### 2 675776, 05925699 ####[facility] [address] [place] [address] Sodium [Moles/Vol] 140 mmol/L Normal 135-145 [facility] Comment on above: Performed By: #### 2 298541, 63559097 ####[facility] [address] [place] [address] Urea nitrogen [Mass/Vol] 18 mg/dL Normal 5-21 [facility] Comment on above: Performed By: #### 2 239787, 46078919 ####[facility] [address] [place] [address] CHEMISTRYOrdered By: SYSTEM SYSTEM on 04-06-2023 Anion [...] Chem Consent for Treatmenton Consent for Treatment [id number]#1.00T IFF Normal [facility] Physician Orderon 04-06-2023 Physician Order [id number]#1.00 TIFF Normal [facility] eGFRon 04-06-2023 eGFR 68 mL/min/1.73 m2 Normal >=59 [facility] Comment on above: Order Comment: Order added by Discern Expert. Performed By: #### 2 846836, [id number] ####[facility] [address] KIMBERLY [place] [address] [place] 03-26-2023 L Specimen: [id number] Received: 03/26/23 Status: EUGENIO Yash Num: [id number] Spec Type: Surgical Subm Dr: Leidy Lopez Tissues: A BREAST CORE NO CALCS (RT BREAST MASS 4:00) Procedures: HE/2, Gross/Micro L4, CK5 6, E CADHERIN, ER, p63, MS Age/ Patient Sex Location Account Attending Physician Theresa Joneszakaren Eason 52/F LABELL [id number] Emelia Collier, OFFSET LABEL REWINDER TIP PUNCHER-C SPEC NUM: [id number] RECD: 03/26/23 STATUS: EUGENIO YASH NUM: [id number] AMY: 03/26/23- DR: Leidy Lopez ENTERED: 03/26/23 [facility] DR: Suzanne,Lab SPEC TYPE: Surgical DEPT: JORGE ALBERTO ROSALES ORDERED: HE/2, Gross/Micro L4, CK5 6, E CADHERIN, ER, p63, MS ORDERED: HE/2, Gross/Micro L4, CK5 6, E CADHERIN, ER, p63, MS Supplemental Report Addendum 1 Entered: 04/02/23 Supplemental for findings of HER2 by immunohistochemistry from [employer]: -Negative, Score 0 Addendum Signed (signature on file) Elvis Mcgregor MD 04/02/23 9786 Pathological Diagnosis Right breast 4:00 mass, biopsy: Invasive Ductal Carcinoma Grade 3 (combined Score Of 8/9). Histologic Grade: Grade 3 Glandular/tubular Differentiation: 3 Nuclear Pleomorphism: 3 Mitotic Rate: 2 Overall Score: 8 Breast Hormone Profile Specimen: [id number] Received: 03/26/23 Status: EUGENIO Lentz Num: [id number] Spec Type: Surgical Subm Dr: Leidy Lopez Tissues: A BREAST CORE NO CALCS (RT BREAST MASS 4:00) Procedures: HE/2, Gross/Micro L4, CK5 6, E CADHERIN, ER, p63, MS Patient: Yasmin Jones [id number] (Continued) Specimen: [id number] Received: 03/26/23 (Continued) Pathological Diagnosis (Continued) Signed (signature on file) Lazarus Chiang MD 03/31/23 1747 Specimen: [id number] Received: 03/26/23 Status: EUGENIO Lentz Num: [id number] Spec Type: Surgical Subm Dr: Leidy Lopez Tissues: A BREAST CORE NO CALCS (RT BREAST MASS 4:00) Procedures: HE/2, Gross/Micro L4, CK5 6, E CADHERIN, ER, p63, MS Patient: Yasmin Jones [id number] (Continued) Specimen: [id number] Received: 03/26/23 (Continued) Pathological Diagnosis (Continued) ER: Weakly Positive MS: Negative Her2: Pending Clinical Information Mass Gross [...] Cold Ischemic Time: 0.03 Formalin Fixation Time: 14.78 CPT Codes 93684 Specimen: [id number] Received: 03/26/23 Status: EUGENIO Lentz Num: [id number] Spec Type: Surgical Subm Dr: Leidy Lopez Tissues: A BREAST CORE NO CALCS (RT BREAST MASS 4:00) Procedures: HE/2, Gross/Micro L4, CK5 6, E CADHERIN, ER, p63, MS Patient: Yasmin Jones [id number] (Continued) Signed (signature on file) Lazarus Chiang MD 03/31/23 1747 [facility] BMPon 03-20-2023 Anion gap [Moles/Vol] 9 mmol/L Normal 6-16 [facility] Comment on above: Performed By: #### 1 7153601, 2483498 ####[facility] [address] [place] [address] BUN/Creat Ratio 26 No Units High 10-20 [facility] Comment on above: Performed By: #### 1 6208787, 3152155 ####[facility] [address] [place] [address] Calcium [Mass/Vol] 9.4 mg/dL Normal 8.9-11.1 [facility] Comment on above: Performed By: #### 1 3276291, 1391314 ####[facility] [address] [place] [address] Chloride [Moles/Vol] 103 mmol/L Normal 101-111 [facility] Comment on above: Performed By: #### 1 5555332, 6654599 ####[facility] [address] [place] [address] CO2 [Moles/Vol] 32 mmol/L High 21-31 [facility] Comment on above: Performed By: #### 1 0137992, 8912411 ####[facility] [address] [place] [address] Creatinine [Mass/Vol] 0.7 mg/dL Normal 0.5-1.3 [facility] Comment on above: Performed By: #### 1 2297355, 3381816 ####[facility] [address] [place] [address] Glucose [Mass/Vol] 88 mg/dL Normal 55-199 [facility] Comment on above: Performed By: #### 1 4836521, 5733586 ####[facility] [address] [place] [address] Potassium [Moles/Vol] 2.8 mmol/L Abnormal 3.5-5.3 [facility] Comment on above: Performed By: #### 1 7165320, 0886042 ####[facility] [address] [place] [address] Sodium [Moles/Vol] 141 mmol/L Normal 135-145 [facility] Comment on above: Performed By: #### 1 5596217, 5125533 ####[facility] [address] [place] [address] Urea nitrogen [Mass/Vol] 18 mg/dL Normal 5-21 [facility] Comment on above: Performed By: #### 1 2368272, 9347138 ####[facility] [address] [place] [address] CHEMISTRYOrdered By: SYSTEM SYSTEM on 03-20-2023 Anion [...] Consent for Treatmenton 03-02 Consent for Treatment [id number]#1.00T IFF Normal [facility] Physician Orderon 03-20-2023 Physician Order [id number]#1.00 TIFF Normal [facility] eGFRon 03-20-2023 eGFR 104 mL/min/1.73 m2 Normal >=59 [facility] Comment on above: Order Comment: Order added by Discern Expert. Performed By: #### 1 5988333, 6459801 ####[facility] [address] [place] [address] [address] Cardiac Scoring Normal -Nor [facility] 250 DO Work Phone: Office Visit (Cardiology)on 09-29-2022 Follow-up visit Diagnoses/Problems Assessed Hypertension (401.9) (I10) Edema (782.3) (R60.9) Class 1 obesity with body mass index (BMI) of 31.0 to 31.9 in adult (278.00,V85.31) (E66.9,Z68.31) Orders Class 1 obesity with body mass index (BMI) of 31.0 to 31.9 in adult Healthy Weight Tips; Status:Complete; Done: [id number] Edema, Hypertension Basic Metabolic Panel; Status:Active; Requested for:21Xqn1798; CT Cardiac Scoring; Status:Active; Requested for:57Wze5913; Patient taking Metformin or Derivatives? : No [...] and no PND. Vitals Vital Signs Recorded: 41Hes9385 02:29PM Heart Rate76, L Radial Vmkqiiny897, LUE, Sitting Wusnkpebj84, LUE, Sitting Height5 ft 11 in Dgfmgz446 lb BMI Hvlvhiuwmm68.52 kg/m2 BSA Calculated2.22 Tobacco Useb) No PHQ-2 #1. Over the last 2 weeks have you felt down, depressed or hopeless? (If yes, answer PHQ-9 below)No PHQ-2 #2. Over the last 2 weeks have you felt little inter (more content not included)... Normal Sold Tobacco Screening.on 023 Adult depression screening assessment No [facility] 250 DO Work Phone: Fall risk assessment c) Not medically indicated [facility] 250 DO Work Phone: Tobacco use status [facility] b) No [facility] 250 DO Work Phone: Tobacco Screening.on 023 Tobacco use status CP b) No [facility] 250 DO Work Phone: BMPon 08-15-2022 Anion gap [Moles/Vol] 10 mmol/L Normal - [facility] Comment on above: Performed By: #### 2 097385, 96054922, 70937110 ####[facility] [address] [place] [address] Calcium [Mass/Vol] 9.7 mg/dL Normal 8.9-11.1 [facility] Comment on above: Performed By: #### 2 778905, 99306497, 52854196 ####[facility] [address] [place] [address] Chloride [Moles/Vol] 102 mmol/L Normal 101-111 [facility] Comment on above: Performed By: #### 2 448273, 64646989, 18567079 ####[facility] [address] [place] [address] CO2 [Moles/Vol] 29 mmol/L Normal 21-31 [facility] Comment on above: Performed By: #### 2 573076, 47720397, 38162817 ####[facility] [address] [place] [address] Creatinine [Mass/Vol] 0.7 mg/dL Normal 0.5-1.3 [facility] Comment on above: Performed By: #### 2 419124, 64853676, 50714756 ####[facility] [address] [place] [address] Glucose [Mass/Vol] 92 mg/dL Normal 55-199 [facility] Comment on above: Result Comment: If t his glucose result represents a fasting glucose, interpretation should refer to the following reference range: 55-99 mg/dL Performed By: #### 2 672239, 87525929, 78853288 ####[facility] [address] [place] [address] Potassium [Moles/Vol] 2.9 mmol/L Low 3.5-5.3 [facility] Comment on above: Performed By: #### 2 108373, 13820773, 54030123 ####[facility] [address] [place] [address] Sodium [Moles/Vol] 138 mmol/L Normal 135-145 [facility] Comment on above: Performed By: #### 2 690180, 38157348, 21642180 ####[facility] [address] [place] [address] Urea nitrogen [Mass/Vol] 15 mg/dL Normal 5-21 [facility] Comment on above: Performed By: #### 2 442245, 64348917, 33634803 ####[facility] [address] [place] [address] Urea nitrogen/Creatinine [Mass ratio] 21 No Units High 10-20 [facility] Comment on above: Performed By: #### 2 247446, 49273262, 76302610 ####[facility] [address] [place] [address] BNPon 08-15-2022 Int Ctr BNP Pass Normal [facility] Comment on above: Performed By: #### 2 428633, 25068715, 27454077 ####[facility] [address] [place] [address] Natriuretic peptide B (Bld) [Mass/Vol] 23 pg/mL Normal 5-80 [facility] Comment on above: Performed By: #### 2 407529, 03490183, 59470701 ####[facility] [address] [place] [address] CHEMISTRYOrdered By: SYSTEM SYSTEM on 08-15-2022 Anion gap [Moles/Vol] 10 mmol/L Normal 6 - 16 mEq/L [facility] Remisol Calcium [Mass/Vol] 9.7 mg/dL Normal 8.9 - 11. 1 mg/dL [facility] Remisol Chloride [Moles/Vol] 102 mmol/L Normal 101 - 111 mmol/L [facility] Remisol Creatinine [Mass/Vol] 0.7 mg/dL Normal 0.5 - 1.3 mg/dL [facility] Remisol GFR/1.73 sq M.predicted among non-blacks MDRD (S/P/Bld) [Vol rate/Area] 105 mL/min/1.73 m2 Normal >=59mL/min/1 .73 m2 [facility] Chem S Glucose [Mass/Vol] 92 mg/dL Normal 55 - 199 mg/dL [facility] Remisol Potassium [Moles/Vol] 2.9 mmol/L Low 3.5 - 5.3 mmol/L [facility] Remisol Sodium [Moles/Vol] 138 mmol/L Normal 135 - 145 mmol/L [facility] Remisol Urea nitrogen [Mass/Vol] 15 mg/dL Normal 5 - 21 mg/dL [facility] Remisol Urea nitrogen/Creatinine [Mass ratio] 21 mg/mg High 10 - 20 [facility] Remisol Consent for Treatmenton 07-31 Consent for Treatment [id number]#1.00C D:127 Normal [facility] Laboratory - Chemistry and C hemistry - challengeOrdered By: SYSTEM SYSTEM on 08-15-2022 CO2 [Moles/Vol] 29 mmol/L Normal 21-31 [facility] Niko yuliet Laboratory - Chemistry and C hemistry - challengeOrdered By: Jackson Bettencourt on 08-15-2022 Natriuretic peptide B (Bld) [Mass/Vol] 23 pg/mL Normal 5-80 [facility] HemeManS S No Panel Informationon 08-15 105 {mL/min/1.73_m2} Normal >=59 [facility] 250 DO Work Phone: Comment on above: Chronic kidney disea se could be indicated at eGFR's of less than 60 mL/min/1.73m2. Kidney failure is indicated at less than 15 mL/min/1.73m2. 10 {mEq/L} Normal 6-16 [facility] 250 DO Work Phone: 102 mmol/L Normal 101-111 [facility] 250 DO Work Phone: 2.9 mmol/L below low threshold 3.5-5.3 [facility] 250 DO Work Phone: 138 mmol/L Normal 135-145 [facility] 250 DO Work Phone: 9.7 mg/dL Normal 8.9-11.1 [facility] 250 DO Work Phone: 21 {No_Units} above high threshold 10-20 [facility] 250 DO Work Phone: 0.7 mg/dL Normal 0.5-1.3 [facility] [employer] 250 DO Work Phone: 15 mg/dL Normal 5-21 [facility] Work Phone: 92 mg/dL Normal 55-199 [facility] Work Phone: Comment on above: If this glucose resu lt represents a fasting glucose, interpretation should refer to the following reference range: 55-99 mg/dL Pass Normal [facility] Amadix DO Work Phone: Physician Orderon 08-15-2022 Physician Order [id number]#1.00C D:127 Normal [facility] eGFRon 08-15-2022 GFR/1.73 sq M.predicted among non-blacks MDRD (S/P/Bld) [Vol rate/Area] 105 mL/min/1.73 m2 Normal >=59 [facility] Comment on above: Order Comment: Order added by Discern Expert. Result Comment: [employer] [place] kidney disease could be indicated at eGFR's of less than 60 mL/min/1.73m2. Kidney failure is indicated at less than 15 mL/min/1.73m2. Performed By: #### 2 359643, 85382316, [id number] ####[facility] [address] [place] [address] Office Visit (Cardiology)on 07-21-2022 Follow-up visit Diagnoses/Problems [...] lose weight.; Status:Complete - Retrospective Authorization; Done: [id number] Class 1 obesity with body mass index (BMI) of 30.0 to 30.9 in adult, Edema, Hypertension Basic Metabolic Panel; Status:Active - Retrospective Authorization; Requested for:[id number]; Brain Natriuretic Peptide BNP; Status:Active - Retrospective Authorization; Requested for:[id number]; [facility] Maintenance IO EKG Electrocardiogram- 12 Lead; Status:Complete; [...] negative for complaint. Vitals Vital Signs Recorded: [id number] 08:15AMRecorded: 79Hpq2012 08:14AM Nwtepbhr829, RUE, Pnojlax896, LUE, Sitting Vxjwnllar91, RUE, Tlurdfw86, LUE, Sitting Heart Rate59, Apical Height5 ft 11 in Lzzncv619 lb BMI Frqxxrzykp61.82 kg/m2 BSA Calculated2.2 Tobacco Useb) No PHQ-2 [...] Neck: ne (more content not included)... [facility] Tobacco Screening.on 023 Adult depression screening assessment No [facility] 250 DO Work Phone: Fall risk assessment a) No falls within the last year [facility] Neto Fam DO Work Phone: Tobacco use status CPHS b) No [facility] Neto Fam DO Work Phone: Family Medicine Office/Clini c [...] day(s), # 21 cap(s), Refills(s) 0, Pharmacy: [facility]/pharmacy #[id number], 180, cm, 07/14/22 14:05:00 EDT, [...] diphtheria/pertussis, riri (more content not included)... Normal [facility] Comment on above: Result Comment: Elec tronically [...] to help relieve symptoms, such as: ? Tbnt-zjq-oydtkcn cold medicines. ? Cough suppressants. Coughing is [...] other clear broths. General instructions ? Take qakr-pri-xgpojam and prescription medicines only as told by [...] and water are not available, use hand laboratory tech. ? Avoid touching your mouth, face, eyes, [...] Get help (more content not included)... Normal [facility] PAP ACOG PANEL 2: 30 to 65on 01-03-2022 . . Normal [facility] Comment on above: Result Comment: Perf ormed at: WB Performed By: #### 4 [id number] #### [facility] [address] [address] [address] Daniel Mcgregor Age Gdln ACOG Testing 30-65 Normal [facility] Comment on above: Performed By: #### 4 [id number] #### [facility] [address] [address] [address] Daniel Mcgregor DIAGNOSIS: Comment Normal [facility] Comment on above: Result Comment: NEGA TIVE FOR INTRAEPITHELIAL LESION OR MALIGNANCY. Performed at: WB Performed By: #### 4 [id number] #### [facility] [address] [address] [address] Daniel Mcgregor HPV Aptima Negative Normal Negative [facility] Comment on above: Result Comment: This nucleic acid amplification test detects fourteen high-risk HPV types (16,18,31,33,35,39,45,51,52,56,58,59,66,68) without differentiation. Performed at: =G Performed By: #### 4 [id number] #### [facility] [address] [address] [address] Daniel Mcgregor HPV Genotype Reflex Comment Normal [facility] Comment on above: Result Comment: Crit eria not met, HPV Genotype not performed. Performed at: WB Performed By: #### 4 [id number] #### [facility] [address] [place] [address] Dr. Daniel Mcgregor Methodology: Comment Normal [facility] Comment on above: Result Comment: This liquid based ThinPrep(R) pap test was screened with the use of an image guided system. Performed at: WB Performed By: #### 4 [id number] #### [facility] [address] [place] [address] Dr. Daniel Mcgregor Note: Comment Normal [facility] Comment on above: Result Comment: The Pap smear is a screening test designed to aid in the detection of premalignant and malignant conditions of the uterine cervix. It is not a diagnostic procedure and should not be used as the sole means of detecting cervical cancer. Both false-positive and false-negative reports do occur. . Performed at: WB Performed By: #### 4 [id number] #### [facility] [address] [address] [address] Daniel Mcgregor Performed by: Comment Normal [facility] Comment on above: Result Comment: Roxann Ambriz, Radiology Receptionist (ASCP) Performed at: WB Performed By: #### 4 [id number] #### [facility] [address] [address] [address] Daniel Mcgregor Specimen adequacy: Comment Normal [facility] Comment on above: Result Comment: Sati sfactory for evaluation. No endocervical component is identified. Performed at: WB Performed By: #### 4 [id number] #### [facility] [address] [address] [address] Daniel Mcgregor MG MAMM SCREEN 3D VONNIE CADon 12-13-2021 MG MAMM SCREEN 3D VONNIE CAD Patient: YASMIN JONES Exam Date: 12/13/2021 : 1970 Gender:F Ordering : DR KAYE JARQUIN Admission #: [id number] Family : DR DAYANA BASHIR . Order #: [id number] CLICK HERE TO VIEW EXAM RADIOLOGY REPORT [...] Treatments None Family Cancers None LOCATION: [facility] BREAST COMPOSITION: Heterogeneously dense,which may obscure [...] MD on 12/13/2021 at 08:39 Normal [facility] COVID Quick Testingon 2021 Result Negative [employer] Other BASIC METABOLIC PANELon - BUN/CREATININE RATIO NOT APPLICABLE Normal 6-22 [facility] Comment on above: Performed By: #### 5 616, 49571, 23736 #### [facility] [address], [address] [place] [address] Ship Laborer: Heraclio Miller MD Calcium [Mass/Vol] 9.7 mg/dL Normal 8.6-10.4 [facility] Comment on above: Performed By: #### 5 616, 52421, 76346 #### [facility] [address], [address] [place] [address] Ship Laborer: Heraclio Miller MD Chloride [Moles/Vol] 103 mmol/L Normal 98-110 [facility] Comment on above: Performed By: #### 5 616, 97050, 65764 #### [facility] [address], [address] [place] [address] Ship Laborer: Heraclio Miller MD CO2 [Moles/Vol] 30 mmol/L Normal 20-32 [facility] Comment on above: Performed By: #### 5 616, 23007, 99853 #### [facility] [address], [address] [place] [address] Ship Laborer: Heraclio Miller MD Creatinine [Mass/Vol] 0.77 mg/dL Normal 0.50-1.03 [facility] Comment on above: Performed By: #### 5 616, 27416, 53591 #### [facility] [address] [address] Ship Laborer: Heraclio Miller MD GFR/1.73 sq M.predicted among non-blacks MDRD (S/P/Bld) [Vol rate/Area] 94 mL/min/{1.73_m2} Normal > OR = 60 [facility] Comment on above: Result Comment: The eGFR is based on the CKD-EPI 2020 equation. To calculate the new eGFR from a previous Creatinine or Cystatin C result, go to https://www.kidney.org/professionals/ kdoqi/gfr%5Fcalculator Performed By: #### 5 616, 02590, #### [facility] [address], [address] [place] [address] Ship Laborer: Heraclio Miller MD Glucose [Mass/Vol] 91 mg/dL Normal 65-99 [facility] Comment on above: Result Comment: Fasting reference interval Performed By: #### 5 616, 32490, #### [facility] [address] [address] Ship Laborer: Heraclio Miller MD Potassium [Moles/Vol] 3.4 mmol/L Low 3.5-5.3 [facility] Comment on above: Performed By: #### 5 616, , #### [facility] [address], [address] [place] [address] Ship Laborer: Heraclio Miller MD Sodium [Moles/Vol] 140 mmol/L Normal 135-146 [facility] Comment on above: Performed By: #### 5 616, 24166, #### [facility] [address] [address] Ship Laborer: Heraclio Miller MD Urea nitrogen [Mass/Vol] 11 mg/dL Normal 7-25 [facility] Comment on above: Performed By: #### 5 616, 17451, 13213 #### [facility] [address] [address] Ship Laborer: Heraclio Miller MD IRON, TIBC AND FERRITIN HANNAH [place] 09-21-2021 % SATURATION 10 % (calc) Low 16-45 [facility] Comment on above: Order Comment: FASTI NG:YES FASTING: YES Performed By: #### 5 616, 90807, 42080 #### [facility] [address], [address] [place] [address] Ship Laborer: Heraclio Miller MD Ferritin [Mass/Vol] 11 ng/mL Low 16-232 [facility] Comment on above: Order Comment: FASTI NG:YES FASTING: YES Performed By: #### 5 616, 09634, 72661 #### [facility] [address], [address] [place] [address] Ship Laborer: Heraclio Miller MD IRON BINDING CAPACITY 542 mcg/dL (calc) High 250-450 [facility] Comment on above: Order Comment: FASTI NG:YES FASTING: YES Performed By: #### 5 616, 76473, 26653 #### [facility] [address], [address] [place] [address] Ship Laborer: Heraclio Miller MD IRON, TOTAL 54 mcg/dL Normal 45-160 [facility] Comment on above: Order Comment: FASTI NG:YES FASTING: YES Performed By: #### 5 616, 67717, 82919 #### [facility] [address], [address] [place] [address] Ship Laborer: Heraclio Miller MD TSH W/REFLEX TO FT4on 2021 TSH W/REFLEX TO FT4 3.86 mIU/L Normal [facility] Comment on above: Result Comment: Refe rence Range > or = 20 Years 0.40-4.50 Ranges First trimester 0.26-2.66 Second trimester 0.55-2.73 Third trimester 0.43-2.91 Performed By: #### 5 616, 17010, 37370 #### [facility] [address] [address] Ship Laborer: Heraclio Miller MD Consent Formson 09-09-2021 Consent Forms [id number] [facility] Coding Summaryon 09-03-2021 Coding Summary HTMLBase 64 EwsabbbcJIp9jVj+PGhlYWQ +HO8BJKFwX19tkIZumM2ZH8 lMRZ9JDNMBELWMLV1REI8kw LE5WWkcL9BbkdQy NxbwhESkDY11CLw6CTJ9nBb vOEmeyC8diSCuA7a9RxJrOQ 60gY49GGgnHVXcSbS9SnVte jsgbWFy C5piPnDggLSyXzm+PHRhYmx lIHdpZHRoPScxMDAlJyBzdH whRW0wTv2wSWOwXDVjgQetn HNlOiBj m6xaVCPcRKxrKT1uiYerG3F wjNI7JHIfo3b3Vw46wKN+PH JjDZM8oMoeSUhvs757MyQmq 6zuTPY4 lGEfEMjgPZI6Q52ks5I2WOK aQAQcNHM3eQW7eO9nyBxvvl pbV6GszCMqRfK4RZQ2iJBjb P6pyWjn qvwnrA5nGnv+W35ZIA3JPKC FPL0FXln8N9ZrHzqwqKD+PC 39CCKbQV03bIFlaSRlj0ufc Pa6YuKi ABTrUHL7tJkvOBoms2TvQQY gS27exPLmu3Y1CXOgtOksyQ JfTcRlkJJ2lV2qSFnbovohs 2hvdzsn Nfdjk6xfwf66mI46B37cSHw wGHGvLXU3BGZuNIFrwDjhsg 5kcK8oIc1+ENlpm9yyk6oqx Sg1XzRh WHOplfLodMmmHJK6v7EuVi8 6X1MqoHven1RxZfj9gs50rF Swh0H0gBQ3NYdqMMNjhA3rI WxlZnQ6 GLOgExMavE40qUOyBXvgSm1 tlJrkrUmvNZ7xECAlvuhtPC UqtS5nRSZvtREnxTbiLZ9gR TBpbjtm z238VmYeJEM1LFDpzMVyC2T pfA8dRzHrAAQrDEXaT3PmrS TaSBkdX185USbxHwV5ZJIkt nKdI5Jn NIKkiOitPsS3h5K0Hp4Di6Y jxzdsZGD6UKkaUPR1HeJ4Yz ApUrS8K8AhIxw7APZwbJchQ A0bZ4Uj ZWAmgssskicmhWM8WIIuIDX fcD81iUOaYGdpCo0wq7X5h3 00NOJiSQViuJ27Or9jbDvcK TBwdCBU hD7xbufhe2rooqicJwWpIBJ vMOq1HFi6GRWfsCzgWzBlRT T8ByN8ZMT2oTTjwK3ogEaro fymkX8u Oyc+R07xfW2yYHX2KMM2kjv xFKVwvyYoXV19QZ62B5BnQm wvdGFibGU+PGRpdiBzdHlsZ U6xGlEd e4qyg0VfBVxgF5AxGVQzNUl gWyu6CSIfFCS5wTJ0xH0fLZ LvHEztl4D1uJO1K7PeisAhl y3ce2xc BNNxJJleU86msKNlz4E6OMD teLE6OKTugOpyMuEklE53Hl c+AUVkvApsk4HyKzzaq2nhy 1hraEo3 SzUmMGFfbeVrxFtfRYQ5b7B vWg06B68pMOkhOEMcVCGeNJ LnTNFlnEncdr6bnB1uOp8+P GNvbCB3 tST6wG5iVMLhKzR5OKjkL06 1DgPivJMcPmbko2phm1bzyS w3WqHaVNJytdWgsKhnALS1s 6JlRk20 P49pWVzmKAJeCXEaICVqDYV pvAmzdm2ueF4jIv8+PC9jb2 ugwj09lH92hLR+UCCyJGZ2z WxlPSdw UWPtaW8oRRitNcE2XMNwTcZ tuK24tKWzVRkvNi6ztOobmZ vkEP3nAEHvieuct350PxAyb 2xkIDEw dMFbWDkyXSR0Y55pg1P5OHW jZWQtOUM3kGI4uX0jsYtpdm ogbGVmdDsgdmVydGljYWwtY LjyM705 IHRvcDsnPlBhdGllbnQgTmF qNEd5C7UjQpn0UGVlbCgkLX 0qrMTjVBfxYj4rjUlkpOkeP I7dSEIk ozfgy938UiJuy9afOFPcoFX mJNqwBMM0J65cc6Z9SVLhWA SbPYA8zKT1lW5loVncicczg GVmdDsg emKrtGjrCGwpZBvjQ127GMX fwVkjKiJiftMbRKJsjNG6IN 24YP18xDRef8L2ePP5U9TjI GRpbmct cobflHZ1DJPgVSMxqT34Id4 qkXzmTx5bWGXdNPL4IQBakV GtW6QxdA3pYpCsPCFhNCXkH 3RleHQt LCpdG544UJcxWxP6RTJikbA wW0XcICEzxDvlVjU2v4B9Yg 6PU9O4FL33JO35kPAgv9C0d IM7U9Zi ABCugiotqeryvVN8ZZRlDZW unW22Mk1bpVpyGq4wUMGwWG T0XYZakFWwO9WhbD1aMkTwN DAwMDAw O6GvoVTqUIazK753LNoeWjC 0FDNtgpEcE5ZxYARxfEciVw W6a9D8Ak5CQMj9AJ33IC87u BEpm1T2 kRY0Z2FiTLMronrjqrrglKX 7MCVuUJXxlK48Tg2ctFrcUc 6sWCHwARI8OLSqdOIsV7Ubr M0aJuCc NXCuRPEwP9IxcWOuEMmcM62 8LRbuNaM1EERilsLpL5CqBO MyhLajExI5u0W0Nj1MVKVpM K36FOT6 kYB3XE11QQ13Q7SvHqomuYN ibGU+PHRhYmxlIHdpZHRoPS xmNQQdHePynAkiKA7sRs1uJ GVyLWNv eKcmgXGjJoJst8qfVMVcTMa cUX8njAzaX0EafGS8BJLgm2 j2Vq71M73mQ2BqsHZ+PGNvb WH9xVQ6 nU5dVcNiSzQ0QIvqB444AeK vcEVcNxnva5imz1qiyHa7Vr G1YVDfkyUhhXzvTGZ3k0RtS q29E80n IHdpZHRoPSIxNSUiIHZhbGl mbx6hyN6uZa9+CVJsxZR2bR J3xX4hDoPpWhV1LRjiZ534I nRvcCIv Qdrqe7ili7cxgUz7OkOvTUW stoFmcQdnJXU0v4GbNx59N8 ZfyQmjb5ZxCfy7fl22aPGrq 5A2mCW2 U2CwOPAporpsiBCknZeeVC6 cNDIienviTSEqrQ6eQJHbU1 t2BhKdSjN2QTvhA6ZazdY3Q DEwcHQg ZDtpGHW5D51zv3C2NXOrHEK jEUH2hBL1xM6faCxiczjioF VmdDsgdmVydGljYWwtYWxpZ 246IHRv qFzqBUOzmS6dOEExiDOmbWv oUI1vEFIqypmjUwlYSD7CJa wgRUxJWkFCRVRIIEFOTjwvd GQ+PHRk HYY2pVeiRHdpUFNmnI5rHYG tV9y8BxAsSxP1PYdeW0DoDD GjfdruZk45jQ1nXqWaCmO7O SqpZ4La byH0WJLjmJYpELcaAJD3B22 cc7G1JXMiYOGdEIC6lVB4pE 1hbGlnbjogbGVmdDsgdmVyd GljYWwt PIjwZ390NCHnqGnuNnR1PvT sDaM5FiO2I4JkPjs5BTWocB okKM4bcUFdLBbmKt4pxHxkh YqrKS2p XXIlmnxcHBRybY5dPRAoaAM evXtkKZ0iWMBfbwejf043Vb DoHSZ1AZXoxOAlW8UxoS0sH iAjMDAw PAMpC6IpyICoAFqwT067RIr fJaM0KLMuooKgM6UoXTWpgD etCaK8o2Q0Mw64AEJWRRMtl zwvdGQ+ NARaBGN4aHtpOOiuJSTpbF8 oASCfD3f8TgNyGnF7YGksF7 TyVPYwgkfsGn78xE0vPzPkD dD9AArg Y7NcqkG7HFXwsGEeKYnnJBL 3J79zu1R8TWBcIGIvZIJ8rJ L3aZ0oaNwuchmiwLDmbVmnz mVydGlj HQtkNOdeS112KLDblJruInN FTUFMRTwvdGQ+HQAcMKK7mP mzJBzdLXYjrT0wMPIxK1t8W iAwLjA1 EEnxP9NxOARwsgzmZk68dI7 yAuUdMjE6YAqrJ3QybdJ9SL JqmOUgYXhkXRQ1M83nh4L5D CMwMDAw DOE8oEA7qU3nrJaaiimnkUC mdDsgdmVydGljYWwtYWxpZ2 46IHRvcDsnPkRheSBTdXJnZ ZA1AH91 YQ08Y3MoAmjkkOWedXU+PHR hYmxlIHdpZHRoPScxMDAlJy XyjJguMY7yPn6rRFYiBDYnk GxhcHNl ZsYll3fcPVTvZVxpJS0liBd dD2IwzJG5JMTxb8d1Nu87Q2 3xA0UyiDC+OICmyCS4bMP3c Y2pToPs YaK5ZVjhX664MhKxaVMsQax lu2erf1smuJu6NeGmPMKqza MevOtsNBJ6p5VjLv66F53jV HdpZHRo LEQeSYEtPVFbfNytyq4vrT7 wIi8+RWWlqCP1fYB1uQ8yQg OdCsH2CQcmO218RcDujVQnE qqjY54c U4CeyMP+FPQsSvp6IRNgoIe mCI8ypHSmMEcxJc6dPTV7Tm UaZcDgWNjjW8IvOEZnuncpc mlnaHQ6 XYLzCAZotR61Ao8jcDniZi7 aOHTmOAG6VKUerCErG7RnpN 6xEyDfRLWsSLYeP9LdlWMsA YicI339 MJwyEoT0XJXajaQoR6DfFOR bxZjgGvK0y1H8Or6KjTppcI VdQZ9nQuRwGVk6W1QbHmg5W CBzdHls AO0gdEBxMKuzMm4arTdzkBa tLC7rDMNmvphpl247AyWux9 cvAQPcxLOoVEmmHZJ5Y98xu 5B7PJDm HVBwCLF0ePG6dR8jkLaburn gbGVmdDsgdmVydGljYWwtYW gyJ963VPCiqGihMpOALgc8O 8OmMpi0 FUKdaQoqLX7fcLJwLPjdYy2 mhVyjtXsmNE8pXSXdiophk6 78ZuJuv2mtTBZnkYVjQMdlD HX1F05y d4T8XWWqYPQwHWH3dPD6kH0 hbGlnbjogbGVmdDsgdmVydG znZYnfLFaoR722AYEpbFsgE o9WOpr9 F6YmEco6UDDfyLdkMZ6vbFJ xZAedDa0ocUwcvDbxDO6bBY Ghacszp579KbGbj3xwXPNfd HQgVGlt SYF0Y41fk3Q0GZFsZDWpHOO 6fZH4tR7zzJlfvthdeQBckS kokhXimZnbPLviEYfrE262M HRvcDsn PlBheWVyOjwvdGQ+KT39mu0 9K8VjRcogCya9MTWaCAP1vV E9bM8nZJNmMMbex2Q2lVC5T 2JvcmRl ci1 (more content not included)... [facility] Coding Queryon 08-27-2021 Coding Query Documentation Requir [...] Oglesby DO [Transcribed on: 08/27/2021 07:54 EDT] [facility] Consent Formson 08-27-2021 Consent Forms [id number]#[id number] [facility] Telemetry Stripson Telemetry Strips [id number] [facility] Anesthesia Noteon 08-26-2021 Anesthesia Note Patient: YASMIN [...] on: 08/26/2021 14:58 EDT] Christopher Cadet MD [facility] Anesthesia Note Patient: YASMIN JONES Age: 50 [...] = 1 tab(s), PO, Daily Potassium Chloride (Obn-Uzff-Ats 10) 10 mEq oral tablet, extended release 10 mEq = 1 tab(s), PO, Daily traZODone 50 mg oral tablet 50 mg = 1 tab(s), PO, Once a day (at bedtime) Problem list (past medical history): All Problems Cardiac dysrhythmia / SNOMED CT 1530813600 / Confirmed HTN (hypertension) / SNOMED CT [id number] / Confirmed Histories Family History: No family history items have been selected or recorded. Procedure history: Arthroscopy of knee ([id number]) on 01/21/2021 at 50 Years. Comments: 01/21/2021 8:41 Carolina Pickering RN right Abdominal hysterectomy ([id number]). Arthroscopy of knee (082818147). Lipoma ([id number]). Comments: 01/04/2021 11:19 OSKAR - Eugenio RENAE, Milana Eason excision History of tonsillectomy ([id number]). ACL - Anterior cruciate ligament rupture (733743085). Comments: 08/12/2021 13:15 Carolina Heller RN repair [...] Oriented. Review / Management Laboratory Results Plan [place] [employer]#(ASA) physical status classification: Class II. Anesthetic Preoperative Plan Anesthesia: General. . Anesthetic plan, risks, benefits, and alternatives discussed with the patient and/or family. Patient verbalized understanding. Informed consent was given. Anesthetic technique: General anesthesia, Patient presented with diastolic HTN; this was also noted on her PST chart. Had a lengthy discussion with her regarding this. Her primary care ([facility]) recently changed her from Toprol to Coreg... Patient has reported no changes and has noted her diastolics have been above 100 for months . We discussed treating her with some labetolol here with the hope of moving forward today with her surgery. We also discussed putting a better nursing home plan in place regarding her hypertension. Her and her both seemed to express understanding. . [Electronically Signed on: 08/26/2021 13:29 EDT] FullChristopher nunez MD [Verified on: 08/26/2021 13:29 EDT] FullamChristopher [facility] Coding Summaryon 08-26-2021 Coding Summary HTMLBase 64 KgzwhnjiPJy9bAw+PGhlYWQ +CZ3YBXIyE62pfCOxjN1KU5 aVLP5ATGWJAASNOC8RVY2eo TX0LZzaR5MmrvGr TpjlbLLcPF81LTh3PEW0tSo aYSsqmO5anHLlY4d4FsGxYW 16tY32FLjeTPLmMyL5GwYed jsgbWFy S8saYvBlcEXwXhk+PHRhYmx lIHdpZHRoPScxMDAlJyBzdH acGP5mBl3kCTNnZLOodYcye HNlOiBj a1ubESCjEXqkIS4ylJkqZ5C gbGV3TTKxo1s8Pt95qXE+PH DiXNF5mUkxLDppt288LjWxl 1xxPRU5 aCZlVZbyKRG1D73yy1C4PRE yVPGzELO1hVT6qW1sbGdjnr miG9KwoIWlBrD0XHL5uGAgd P7urWob apkheJ1fSpu+A43BHE0LDPD GKA8SAdj5M9XzSicfsFL+PC 72YRVdOW81rDBelFVyt0grg Jm3NkQg LVCwTIV7yVqyXGzrv6IcMOG dI60biFRmo8N8HDOuiMblkK RjMlWygGM1nN4hFWtvcztsu 2hvdzsn Tdenz8vdpb10nJ80I91aQMf nJLDtMHN1AGHyIMEebLpgpr 8gbI6zHj1+HHrot7kar0kqp Qm4KcLg ZSCqsbOdcMjjIRC7w0WqFa7 5H3ArwYuet5KhGqz2gp02iT Cut8S3rYQ4SBqdKMSrtE2uI WxlZnQ6 CGVeAcOxeM27pKYvPApoLq2 mpVjkmSxkSP6pMTKqatpfWO XqrR3tADMkqQUnfXlcQW3cE TBpbjtm m063MiDhVBZ4ISOouJHzH0M abL3nFtVqRXMnAACzM2OoqC PwTHnhV281LYjyQmD6FYTjn bBzZ4Cs WYIzwMtoHeC3g9E1Eo2Av4O jgcdhGDD9PUukMEM2TcI6Qp NeLiY9V8TmNzq5VVYdzFdyZ T7gN8Tf AIMumymlhpmqvRG4HLPkLYK txW52rHCvBLaqYd7fk2O1j0 83QAYhDOGwiK94Fq0lhMvgL TBwdCBU yS9dqnqne5omlheuXfIlQXS pOSl1KFj1EXEelUetOcRlYR F3DfF7ZIU1yDUurS0ziRyas apmhH5m Oyc+P87uyP3iASL3UBO3rht dKBXoayEaTB83KS43H7UwQo wvdGFibGU+PGRpdiBzdHlsZ M4lZzCg w9bay7RqTXxiG5MeIBJrLUa nHnh3HOZsAFG7kQA0hN9xKN CpEJrqf3C5wQB7R4PkuaYwy f9wh9rz GZCaXUfgN87tkTXbm1F1ARD ryOG1JZHmxAkuYzOjvT38Ct c+MGHixSwgr5HzMtiuf0loo 7rozLj5 AsHzCBIyduIdgHfsCHB0p9K fDg03O17xWXdiVXOoAUZzED JfVAZusLodvd7xxA2xQw5+P GNvbCB3 cVM5lJ4fOEEuAlA8WOiqO30 9TyEqaHYaLxmuf3tfl9zybH q7UcGsVIKldcJkvHitFZT6h 2UcZc45 N20bFIzvLFZrYEBfYPLaFOD jvYqpfe5idZ5gAb8+PC9jb2 bnao73bG80aMH+RMSaNYJ5f WxlPSdw MZAznR7yUYdnIvU5TDJxToX frR20pCOoYJltKf6huHbxeH whZN6lLSZgcvpep739UcYfs 2xkIDEw nGPxPHbnIFB4O78ot6J7TKO iXGOeQQH2yBC4fY9pfIsect ogbGVmdDsgdmVydGljYWwtY HatE979 IHRvcDsnPlBhdGllbnQgTmF aDVw1Y9UjQej0VHVwqBndPH 9vvGRpXLnyWw5byYqxwZucW L7vDYVh pzdws100VvZwy0mlLTIkvCD eSIfgNSS8B69zx1C6SNWySZ HuYVT0tTL7wT5mcAdcsigsm GVmdDsg gsTjrIamSIsmGSjbI588OXR apPdjVpNiylLpWFTtuNW3UO 61PT10aGPca5K5dIU3Y7YnZ GRpbmct lhybqKW8BSShTANfzC93No3 rsTcfTk2mDDBbEVU7EWDrhI XlA7EhvC5pLfNkVVWgSEAtK 3RleHQt XZtzN910YTqrOzV7TMEsneL cE2XmKFNkmPatOeU6d2L2Wk 6ZJ9O2NV97IF25fZCyi2N5h TE4Q9Ni KPErftqivhlcgWL8KEDgCNG axP90Cq9ujIobSi1jARQaPH E8VLDncQOaV5SsvP2rGqXfM DAwMDAw I6RlbJOnYOzhV543UEppEiM 4CRFbxeUxL7OlLNMetGnzWf K5w5A1Wx5QNUv4FO88DJ52h IPwl1S3 nXV5Z2JuSWRnbldexrazaFI 6SWTmGBUmcO97Rx5ecNotSy 4iGMThUYE2HSNgzPMqW4Gyt O6eDyUv VEKbVZXoR7RxaYNhJZiyG10 3WAzoUeU8TMRcsnYfG8NqVM VwqRplVnG4i7B0Iv2DKEWgS Y46GYF0 kUE5RX26CP63I6SzTldztIP ibGU+PHRhYmxlIHdpZHRoPS lcWZTnTlIrpPfkRZ3jVd4wR GVyLWNv lJsziWNzEsAac2bzUDQrZXe lXX3emOicF6BgbCJ8TPSdj5 x7Vq73K43jV2BsdBB+PGNvb IR9fWT0 tQ1gJwKqWiK7RRujU874JiT adATxQsrqr0ley6rpsHl8Ut M3JATdexKyaOjpBRO5o9HhR m68N47f IHdpZHRoPSIxNSUiIHZhbGl yhl3rvD7pWt4+XWWdqPZ8fA P2nK6wBaKvHbA3ZDtrT709V nRvcCIv Yvsbf7yth7addUk8MrOaPJK pbcTflMhzIBQ1f0KvQd75E4 CnhQscp3VuSrw5wp35jBZhp 0D6gZQ5 B1CjRFFqapvbxCSygQryZN1 yFNEmyetwBLCrhP6bTNCsQ5 u4DeXjMhE5XGzuI0GxkeN2H DEwcHQg BXzgAMB6S48yy2N0ZIRyPPW zPUR1rZG8yB2ijVvgqmeiqD VmdDsgdmVydGljYWwtYWxpZ 246IHRv iFocFKBouA3iPSCtsIAjbBn qPE3yTQBtkozrRwtJFX1DMv wgRUxJWkFCRVRIIEFOTjwvd GQ+PHRk EOY8mThcDBgiSFRsxT0hQGB yA7f7EyGsQiR9DYxsF8JjDE JrdrhnVw33mC0eGtOeJcT2F AohL7Qf mmX3RVYanOFvAIslYEG6A70 wu0G4DKIgZRDnQBK0cWL7uL 1hbGlnbjogbGVmdDsgdmVyd GljYWwt TOqeX436APXxzTdpAtB4NoH gEeC5MkS6B2JlEly3TPJqkY kcKV5aaRMrHTugSv8akIumz HxoJE3m SVUjwtuzBTYspB4nVDOdxZU mdZxuNF6sTOWaytbbu319Ce JkHIX6ICTwtKLrT3VonN1iE iAjMDAw KFPcH7VofZPzQQfqC643LKl qUyC8QXZtpoNpB7AiMLKnuB pxQqO3t9I4Cn36JZCWIJXzs zwvdGQ+ POSjYZR1jIdaJZjaLKJasD9 qXDRbM2n4ElLcDpR7XTnnQ2 HqJOLeydibZy46zH0zRjBxH mD0MLgd U8KebmO2ODJcsHAsBRxrQMJ 4B94sq4E6ZPVnGFChLUF5mR T9kL3jzUoslvxbmKBvgWvpc mVydGlj LZttFFpsA099LFPhnVcoVcF FTUFMRTwvdGQ+HVWmCUQ2mT drDWcjEQZbaU4xKFEuJ0x3M iAwLjA1 SVgdK3XkNWCyymoaCb07kV9 qYrZjDvB6IDprJ9AimmS0AD ElbLZuPHtvDOK0F14ly5P4A CMwMDAw DKR7fYX7oS2hmYuylqdnsVT mdDsgdmVydGljYWwtYWxpZ2 13EMFbvSmnSa8EIY84ZT92R 3RyPjwv dGFibGU+PHRhYmxlIHdpZHR fKUfcSXQlVpTeaOtnRR1fDe 9yZGVyLWNvbGxhcHNlOiBjb 2xsYXBz TEwcDP9muFweU7RujUX0IBI hh8f1Ui56G04iF6FayFM+PG NvbYP5lZR8eH9lVzHjQqA4E XlmS567 EqZbiPZrExofv9njf0ngrVr 1VlXhGASfvbNtsQvgCCR6c7 IjWy79Z60hJVpkSUXoDYJjW CUiIHZh rKqjwy7kcG6lUg3+PGNvbCB 4kTV3cH6fSgTeEfY5IPjoV5 79HiOjnQYvKkmtB63sQ2Rux XA+PHRy Rwt3HSIrlRvxVQ8jzYXhVWi lOc8oOIY3KjZgLxDiFHnjV0 GfCMQephsqpqwfjXS7QHCdY DUwaW47 As6kcAueLd7wLFRgMYG6AQO fvSBcM3QrsO8qArBkHWSoSK AeD3PgiKOqUYntL920XSphO hJ2DIUe mpUcG7OmLSVgkWanUsZ7q5R 6Sf4LvOhcnIXnGP1sHkMaQW y3X5UfVft4NSNcxJpsUS7fs GFkZGlu Wc2wkSphtOpyIW1wZUGrbgf yd153QjRvi3hbBOIwcTYnZI phQVZ9V06os8L2PGFgESNhI YF1kNN7 kM2yiIdsctixyWQtyScqqmD jqCegSOxpDGzeW620CGRljS xnSvORKcc6M8UoFvu2BLKnf NsiNU4b uFTiEZuyTk6caNuugZxkMO5 iYMArnebon901NfJmp4spOY EbeFQwYWgrATD0G17jq0C7S CMwMDAw NTV0bOD9oG6gfOlkyzieyHH mdDsgdmVydGljYWwtYWxpZ2 01KUVruMwqHq0FTxu6K6EoY df0JPJr aSsvYL1jlYEgFYcjSo5drUk ghRoyTO9lCZPwkynnp028Ol Yna7axOMDuiCNcADdiITW3C 40qe8R1 YXGwMKDnGRQ5nXM5cX1uaDg nbjogbGVmdDsgdmVydGljYW ghMZelW667VZGfcZjhSxRhr WVyOjwv dGQ+UG67bs39D2QwIjzpAcw 1QNNxDGN5uXV0dM2tINNrUU xjz0M9oAI3C7YdnbYfmm7ww 2xsYXBz ZTo (more content not included)... Normal [facility] Inpatient Patient Summaryon 08-26-2021 [place] [address] Patient Discharge Instructions Name: YASMIN JONES : 1970 Patient Address: [address] [place] [address] Primary Care Provider: Name: RANDY CALLE After you are discharged if you find you have any questions, please, call [phone] ext [phone] to speak to a nurse. Discharge Diagnosis: Internal derangement of left knee Prescription Information: If you have been given a prescription for narcotics, seek immediate medical attention if you have any difficulty breathing or any sudden status changes such as confusion and sleepiness. If you or anyone you know is experiencing suicidal thoughts, mental health, alcohol and/or drug addiction problems; contact the [facility] 22/09 Crisis Hotline -Text 4HOPE to 343015. If you received any narcotics, sedation, or [...] business decisions or sign any legal documents [facility] would like to thank you for [...] Have Not Changed Other Medications acetaminophen-hydrocodo ne (!-Nemacolin 5 mg-325 mg oral tablet) 1 tab(s) Oral Every 6 hours as needed as needed for pain. carvedilol (carvedilol 12.5 mg oral tablet) 1 tab(s) Oral 2 times a day. cyclobenzaprine (cyclobenzaprine 10 mg oral tablet) 1 tab(s) Oral At bedtime as needed for spasm. hydroCHLOROthiazide (hydroCHLOROthiazide 25 mg oral tablet) 1 tab(s) Oral every day. potassium chloride (Potassium Chloride (Hfa-Uoso-Ubu 10) 10 mEq oral tablet, extended release) [...] you can keep with you. acetaminophen-hydrocodo ne (!-Nemacolin 5 mg-325 mg oral tablet) 1 tab(s) [...] Oral every day. potassium chloride (Potassium Chloride (Kqj-Xlfm-Knr 10) 10 mEq oral tablet, extended release) [...] flow is (more content not included)... Normal [facility] MAGR Intraoperative Recordon 08-26-2021 MAGR Intraoperative Record MAGR Intra-Op Record Summary Primary Physician: Hua Oglesby DO Finalized Date/Time: 08/26/21 15:08:30 Pt. Name: YASMIN JONES/Sex: 1970 FEMALE Med Rec #: [id number] Physician: Hua Oglesby DO Financial #: [id number] Pt. Type: D Room/Bed: / Admit/Disch: 08/26/21 [...] Role Performed Surgeon - Primary Anesthesiologist of Knockdown Man Record Time In 08/26/21 14:02:00 08/26/21 14:02:00 08/26/21 14:02:00 Time Out 08/26/21 14:56:00 08/26/21 14:56:00 08/26/21 14:56:00 Procedure Arthroscopy Knee(Left) Arthroscopy Knee(Left) Arthroscopy Knee(Left) Last Modified By: Jeannine Eid RN, Erica RN Baumer, Erica RN 08/26/21 14:54:01 08/26/21 14:54:01 08/26/21 14:54:01 Entry 4 Entry 5 Entry 6 Case Attendee Dorothy Archer RN RETAIL SOLAR ADVISOR, Laxmi Navarrete RETAIL SOLAR ADVISOR, Shanique BROWN Role Performed Knockdown Man Program Lead Scrub Personnel Time In 08/26/21 14:02:00 08/26/21 [...] Primary Procedure Yes Primary Surgeon Hua Oglesby Efra DO Surgeon Comment LEFT KNEE ARTHROSCOPY, Start [...] By Jeannine Eid (more content not included)... [facility] MAGR PACU Recordon MAGR PACU Record MAGR PACU Record Summary Primary Physician: Hua Oglesby DO Finalized Date/Time: 08/26/21 15:37:09 Pt. Name: YASMIN JONES/Sex: 1970 FEMALE Med Rec #: [id number] Physician: Hua Oglesby DO Financial #: [id number] Pt. Type: D Room/Bed: / Admit/Disch: 08/26/21 11:01:00 - Institution: PACU Case Times MAGR Entry 1 In PACU I 08/26/21 14:56:00 Discharge from PACU 08/26/21 15:30:00 I Last Modified By: Elvira Navarro RN 08/26/21 15:37:04 Finalized By: Elvira Navarro RN Document Signatures Signed By: Elvira Navarro RN 08/26/21 15:37 [facility] MAGR Postoperative Recordon 08-26-2021 MAGR Postoperative Record MAGR Phase II Record Summary Primary Physician: Hua Oglesby DO Finalized Date/Time: 08/26/21 16:25:07 Pt. Name: YASMIN JONES/Sex: 1970 FEMALE Med Rec #: [id number] Physician: Hua Oglesby DO Financial #: [id number] Pt. Type: D Room/Bed: / Admit/Disch: 08/26/21 [...] Signed By: Elvira Navarro RN 08/26/21 16:25 [facility] MAGR Pre-Op Record Summary Primary Physician: Hua Oglesby DO Finalized Date/Time: 08/26/21 15:18:23 Pt. Name: YASMIN JONES MIGUEL Edmonds/Sex: 1970 FEMALE Med Rec #: [id number] Physician: Hua Oglesby DO Financial #: [id number] Pt. Type: D Room/Bed: / Admit/Disch: 08/26/21 [...] By: Elvira Navarro RN 08/26/21 15:[address] [facility] Operative Report - Surgeon/P aster 08-26-2021 [...] on: 08/30/2021 13:39 EDT] Hua Oglesby DO [facility] Patient Handouton 08-26-2021 Patient Handout POST OPERATIVE [...] be done to rule of a DVT. [facility] Progress Note - Nurseon 08-01 Progress Note - Nurse Pre-op call done, instructed to arrive @ 1100 on 08-26-21, NPO after midnight, and need for ride to and from hospital-verbalized understanding. [Electronically Signed on: 08/23/2021 13:36 EDT] Carolina Painter RN [Verified on: 08/23/2021 13:36 EDT] Carolina Painter RN [facility] 2019 Novel Coronavirus (CoVI D-19), KYLE LCon 08-22-2021 SARS-CoV-2 (COVID-19) RNA KYLE+probe Ql (Unsp spec) Not detected Invalid Interpretation Code Not Detected [facility] Comment on above: Order Comment: [id number] [facility]# [phone] Result Comment: This nucleic acid amplification test was developed and its performance characteristics determined by [employer]. Nucleic acid amplification tests include RT- PCR [...] detected) result in this assay. Performed At: [address] [id number] José Manuel Chery PhD Ph:[phone] Performed By: #### 6 [id number] ####[facility] (DEFAULT)[address] [place] [address] Coding Summaryon 08-15-2021 Coding Summary HTMLBase 64 SmxgzlpkRDo9cLr+PGhlYWQ +CQ6QDOCoH61rrVAmzQ1OQ2 mGRN8LUUIZGFFWZF7DEL9cf YM4MCemD6ElhxOx AiyuaZYvJQ30XPz8JBI3dVc eYUbnoF3eaPJbS2f6JuAnPI 41dX43OMvrPJGsDbE6LrTdr jsgbWFy V7pyHpYinQTwDzq+PHRhYmx lIHdpZHRoPScxMDAlJyBzdH xkQP9mRs7aQMNjSTYuzNbgf HNlOiBj d6xoYVXrFFbfJV2olSugF7V zvGL2QYZhe3n1Lk62vLL+PH IhFIE7hPvqWXvwp536FjYyt 9syOXK9 dBGxTRunYML6N11tb9C8NRH lVXYqIIL0zPA7sQ6ooFjtct vjO5BflQTuVnT9SRX3bIVtl X4dtLtm uzpadN2iUph+U20TJB1XVYV LLX5NZko0N6WjEezgcXX+PC 81QGXgFG89gAWajUGrc9fey Ci7GyOf HHSmOBB2bKwpGRxgx0OcYUY lW11vkLYoo8J1EACvlQkmzJ QkXuQqcYH6pC2dEEbdfkuye 2hvdzsn Zsurg0fiwl81oE07E47pOYm sPHOiREZ6LXJzBIOqkVmmof 5waV1kOv1+ICgrt5kxl2ais Sp8DgMg MOPzrhNovVnfLWF0p3HoAi2 3E4WhhIfwl1IwGxu4el70tM Def1L4qLF6GYmjPJXwwG9zZ WxlZnQ6 YXIaVzHrtL53dNPaWYhoOj6 apOpmaLvzMU0kETZmzihsFX IpxS1qLUNzeCFseOknIR2lB TBpbjtm y831GdHxIDA5YVGtuLNlA3M clR3eGiSlVAAzKIHfF8McpS QbMIkwO433HFleAdX3BZHik gVxT7Bq NQJfvJrhZkK9g5Z6Ae8Nl0T gljxiDJB9KZxwJTV0UnS7Ws LbYcK5S0FdVes3WGCwkIraX T9fC3Uf YWAonefkqrikkMV9DYOqUAP liB12aEKmUVedBm2zt2C3j9 88QFBeIRSskA30Vn0dpPxaW TBwdCBU uQ7npvkbo7newcymUuWaBLI bRTx1CIf5JAYakOrrHyHdVP O7IvA3RDH8tTSaxU4jdNtin llesP1n Oyc+A57cpC2mCJG9HDV0ftq yZWEppuGbPZ34CO73C5KwGj wvdGFibGU+PGRpdiBzdHlsZ K5sRaSi q1zof1FoFWqyY5FcGMBoPUr oIlv3JRAhKMD0tMJ0uQ6rRR QiBZgza7M1sAJ4R1HhyqNib l6bb4ml QDXcLKxmH60ssNWxc0A3VSO nsFU9AZZqyRdmFjNjuQ99Tx c+NVDwdDweo3BhXdfij5jbt 3aceKd6 XrYuJZXlzaEzhOpeAYM1d2Y iIg96K14lYYwtFQQqPWRuRF GoTYUqgNzjce9izY3gAn9+P GNvbCB3 nEL8lH0cDRUwAdM4GIkfT31 7CmHakVLvAeyfw8fxi3selB n9SrFnAUFjweKnuBnmASR9g 1HcTy32 W00lUEdeECEdYZLfBTLzILT nwWdnxc8vvX3pIp4+PC9jb2 qgjq96tC75yGL+PSSzSGC9l WxlPSdw WZMsoL9jGGejEoY3NQKiOhM auS70cPJbVDonGl7ltDejxW agXZ2rCJLnraaxk847CyBqd 2xkIDEw kWXqIBadRCV5I86va8A9LEJ zIIZjIXX3bSU0xX6umYygwi ogbGVmdDsgdmVydGljYWwtY KqlU752 IHRvcDsnPlBhdGllbnQgTmF xZPk6T8QsLsg4XSYmmTxyBZ 5nvWKuHRlxGk2hkRcvpJhjF X8gKEBh lkbno397SoQxw0wfKTXwiIZ mNNsfFNZ7X20pz2I7DUHtMS KwZEO5eRZ4rD3caOvuuuuaf GVmdDsg poXubVdtVHjuQJdsK872EVL kaOdeGxRvkcOdSPEomXK9HC 42UV30wPOpb4Q5cBE6G3LlK GRpbmct ctprdMD0TZFqZMOvrH98Mf1 ceCjtZb1xNDIbBSI7VBYcfW ZdI6KokX9mXbZxSPStDBElU 3RleHQt MZryP889EAarGqA2TVMvnrL sK9NjYRJcfLvxKmP3v7Z8Ax 3OW0E1DZ76DT49oGBtk0X8x RF8A1In EJFnsktsagksnJB7FVGaZCO rfJ23Sn3fdNhcEo6xUAOvDD N1DTJfcBSfA2ZzeZ9kFbFjA DAwMDAw U4BgeUPfQVqdX179BOifQzK 1DAPcurRkY5VcMQWexCfrOd R6j6X9Ye6BVOy8LW47FO72e YEfi4R8 cQX7O3UmPQLxdzumexxzkYW 0ORSzBZPwcB09Bb9lmYanKj 2zTMYtJHD6YWZuhLHvO4Jxm S1iHmTw KMFyFKOmU1YnqQToVZjlN70 3TVhjCqE1BJTeefXlK5LqCG XfjThzOdY2c4T5Ak8QNEKuD B39KBX1 xHN4WO71HY72G0HfXqvpaVW ibGU+PHRhYmxlIHdpZHRoPS ozPHThJjVhaLkbBM3kCw8rE GVyLWNv rQygqLDzKaKqm9jdGMSqBBj zUF9uvFunI1LuxDA6ESXmf7 o2Pk73X35oZ3XujCV+PGNvb OR3oEA3 fG8lNeKvKqN9UNghF284NjJ ewPDpWnawm7ewb8izzXz3Av L8ZOZapaVvwCszXZN5b4XvD o28I32n IHdpZHRoPSIxNSUiIHZhbGl zka0psA1nRt6+WPEwoSP1kR Y3tZ4oZiBhYvJ3HSyfQ884C nRvcCIv Negrb9fge8ndcOz9SxOwAOP wfxZlkBmtVKT4n4AaDs34H8 JmvHwem7ZdMjz7ye94mUEko 2B3pMI9 E6TxUMZwppsmuCKxbRdmPZ8 zWFLrppmoSLTaxL2aPGIeT9 y1LrXlZrC9QJqsN9SztoX2K DEwcHQg HXvgFJJ4R94fs8J0EMDwMVW uIVF1fQW9mA6ckJsbsioxgV VmdDsgdmVydGljYWwtYWxpZ 246IHRv nKvxVBKctW2vEPLsnAPqzMp yHP1jJAGmmorqQjgKCF8CAp wgRUxJWkFCRVRIIEFOTjwvd GQ+PHRk RFK2oCprIPoeNCLvkL8vFXY tN2u1BxSzOkG2JYsuQ1JvMP HxxaorEs12oA3rUeWhBaY0I VfoA0Vu vlZ2WHBmvMGbCQdoXMH2Z31 ud2K9CSMmJQKlGDZ8fEH8aJ 1hbGlnbjogbGVmdDsgdmVyd GljYWwt NLwtX370LPGetAoxPpE9AcH cHmH2CdB1S7PfQvm3TYSypO dkSW1htCQhHBreLy2zvFxbx PhvWT2c UMHgtitxAVEymY4aCOQlvXD gxZcjQW0nLWQlhbjjh317Uw JkXVL6OYOrfNRnD7JxoE9iR iAjMDAw XIMqM8HlgARiFRayL904QQu eViK2WZRaieBvS7MrULDceB acHeR2u9V0Qg80RJRMXZSei zwvdGQ+ WDGpPWV5bMpqZDxpBOIwnP0 jNQVbP1p7MyDeYdH2LOtvS8 QdHOMaxdfyVx37xL9lEjZhR qP7QLgr U3IzboG4KYJavDWcVKofAUX 7T70ul4R1AALlYTKpRFX6cR S0xZ4maNxqxyhgrVYqfHyda mVydGlj KJdnHBjqE049WIPgyOekDiK FTUFMRTwvdGQ+DMSdAMP6nW ezLCnkRIYbkG1wJBUrB6u8Y iAwLjA1 FBrhI8DtATCoicxtYy48qE9 yTeXhLeB7WFfqA0XtmuW5FE JctRUpRJetUYO6S28ft7N8R CMwMDAw YYV0kPP2tB5qiRxhmzqxuZL mdDsgdmVydGljYWwtYWxpZ2 19GKKngUycRs3EVT83ZI67V 3RyPjwv dGFibGU+PHRhYmxlIHdpZHR sMOqiJIXfGxRniYjaNQ7wWq 9yZGVyLWNvbGxhcHNlOiBjb 2xsYXBz ORsxKZ1uvQteE6FqpUF8HQH yi9y6Ys55H11tP0AkiBJ+PG ZckEX2zFE4mO2uPoCnUcB8S OkoF304 YzOxnNDeDhxwr7mhf5wdaLt 3IsUuIYEmjsSwcDynLIJ8g0 RkVo13K38nXVbwJOHzXKRxH CUiIHZh cOamwa7stQ6xHg9+PGNvbCB 8oYI9jU4fOaCfZbO7EPcrN8 55GaVxtKXyFcpcX95pM8Wpd XA+PHRy Ior7OWPcrFoyLB7vmGKrNFy nZh9lDGH4FpZwBwBxLUolD9 XvUPBnakzveyeefGX6ZUPyZ DUwaW47 Wb5cvZdyKg5zMQBoWOW2YGD udJHlM1QpxW6lBsSjJMTlAU KcF8DvoBCmKKmuQ165CLniV wZ5CTAb snYtI7MrRDDmoDxxNvQ1f7J 4Za2NtNzumNYrZO4bUlGrMY w9C7DqWke6IZXtbLmqGN4kk GFkZGlu Sk8qjPvwePbmTF3rRWIlqbz ka302TjPnr4rgMKOmiNEpCZ ynCUJ1Q31hu4A4TOWiCRTfB HJ8eHG1 dH7zeHmoakkpnZVwaKfbbfS ldVhjMLtxGGloY462VURshF fdSsOFYdi9D8IgCyo5TVMuf HohWR6s yDCxYWvoOg2dkOenbBfnKM4 xWXGnoatcl765OoLjd8mjHH GtbDEhZLmhTSD2C73vx4T8Z CMwMDAw PHI1dKF0pV4iqDaedqhgwLN mdDsgdmVydGljYWwtYWxpZ2 49MTMqzDqxXl5FAso1O2HoE of3GEAx xZsjIF7jeHLgSLasZq6hiOc hgHqfNG4dGFPygdxvv243Jo Twr1wtASKkfQAlBOewYHB2G 35fr0Q6 BLBlOAUjPCU1mHK0vM6ihKa nbjogbGVmdDsgdmVydGljYW hoIEheQ450QZDeiYwrOgLad WVyOjwv dGQ+LR90yv90B7NwYdzaUev 7VWZrQLX2cPZ3tQ2lFWRdEB rhw6O9nBV8C2MlocKhkf4oe 2xsYXBz ZTo (more content not included)... Normal [facility] Inpatient Patient Summary 08-15-2021 Inpatient Patient Summary [address] [id number] Patient Discharge Instructions Name: YASMIN JONES : 1970 Patient Address: [address] [place], [place] [address]Michaelle [facility] [address] Primary Care Provider: Name: KELVIN CALLENIS After you are discharged if you find you have any questions, please, call [phone] ext [phone] to speak to a nurse. Discharge Diagnosis: Prescription Information: If you have been given a prescription for narcotics, seek immediate medical attention if you have any difficulty breathing or any sudden status changes such as confusion and sleepiness. If you or anyone you know is experiencing suicidal thoughts, mental health, alcohol and/or drug addiction problems; contact the [facility] 22/09 Crisis Hotline -Text 4HCQR dm 122937. If you received any narcotics, sedation, or [...] business decisions or sign any legal documents [facility] would like to thank you for allowing us to assist you with your healthcare needs. The following includes patient education materials and information regarding your injury/illness. YASMIN JONES has been given the following list of follow-up instructions, prescriptions, and patient education materials: Follow-up Instructions With: Address: When: MYESHA VINSON [address] [place] [address], [place] [address] Business (1) 09/03/2021 9:15 AM With: Address: When: [place] [address] Business (1) Medications During the course of your visit, your medication list was updated with the most current information. The details of those changes are reflected below: Medications That Were Updated - Follow Below Instructions Other Medications Updated: potassium chloride (Potassium Chloride (Osd-Lhmc-Jai 10) 10 mEq oral tablet, extended release) [...] Oral every day. potassium chloride (Potassium Chloride (Fgg-Tktk-Brj 10) 10 mEq oral tablet, extended release) [...] for Disease Control and Prevention October 2013 [facility] Patient Handouton 08-15-2021 Patient Handout [facility] Progress Note - Nurseon 07-31 Progress Note - Nurse Dr. Small reviews PAT information and testing results. Ok to proceed, no orders given. [Electronically Signed on: 08/14/2021 12:02 EDT] Dary Gallegos RN [Verified on: 08/14/2021 12:02 EDT] Dary Gallegos RN [facility] .Auto Diff 108-12-2021 Auto Newberry % 8 % Normal 03-[address] [facility] Comment on above: Performed By: #### 1 [id number], [id number] ####[facility] (DEFAULT)[address] [place] [address] Baso Abs# 0.1 x10 Normal 0.0-0.[address] [facility] Comment on above: Performed By: #### 1 [id number], [id number], [id number] ####[facility] (DEFAULT)[address] [place] [address] Basophils/100 WBC (Bld) 0.9 % Normal 0.2-2.[address] [facility] Comment on above: Performed By: #### 1 [id number], [id number], [id number] ####[facility] (DEFAULT)[address] [place] [address] Eos Abs# 0.3 x10 Normal 0.0-0.[address] [facility] Comment on above: Performed By: #### 1 [id number], [id number], [id number] ####[facility] (DEFAULT)[address] [place] [address] Eosinophils/100 WBC (Bld) 3.9 % Normal 0.9-4.[address] [facility] Comment on above: Performed By: #### 1 [id number], [id number], [id number] ####[facility] (DEFAULT)[address] [place] [address] Lymph Abs# 2.6 x10 Normal 1.3-2.[address] [facility] Comment on above: Performed By: #### 1 [id number], [id number], [id number] ####[facility] (DEFAULT)[address] [place] [address] Lymphocytes/100 WBC (Bld) 30 % Normal 14-[address] [facility] Comment on above: Performed By: #### 1 [id number], [id number], [id number] ####[facility] (DEFAULT)[address] [place] [address] Newberry Abs# 0.7 x10 Normal 0.0-0.[address] [facility] Comment on above: Performed By: #### 1 [id number], [id number], [id number] ####[facility] (DEFAULT)[address] [place] [address] Neut Abs# 5.0 x10 Normal 1.5-9.[address] [facility] Comment on above: Performed By: #### 1 [id number], [id number], [id number] ####[facility] (DEFAULT)[address] [place] [address] Neutrophils/100 WBC (Bld) 58 % Normal 44-[address] [facility] Comment on above: Performed By: #### 1 [id number], [id number], [id number] ####[facility] (DEFAULT)[address] [place] [address] BMP Standardon 08-12-2021 eGFR Non AA >60 Invalid Interpretation Code [facility] Comment on above: Performed By: #### 1 [id number], [id number], [id number] ####[facility] (DEFAULT)[address] [place] [address] eGFR AA >60 Invalid Interpretation Code [facility] Comment on above: Result Comment: [employer] Kidney disease could be indicated at eGFRs of less than 60 ml/min/1.73m2. Kidney Failure is indicated at less than 15 ml/min/1.73m2 Performed By: #### 1 [id number], [id number], [id number] ####[facility] (DEFAULT)[address] [place] [address] Anion gap [Moles/Vol] 14.0 mmol/L Normal 5.0-19.[address] [facility] Comment on above: Performed By: #### 1 [id number], [id number], [id number] ####[facility] (DEFAULT)[address] [place] [address] Calcium [Mass/Vol] 9.6 mg/dL Normal 8.9-10.3 [facility] Comment on above: Performed By: #### 1 [id number], [id number], [id number] ####[facility] (DEFAULT)[address] [place] [address] Chloride [Moles/Vol] 102 mmol/L Normal 101-[address] [facility] Comment on above: Performed By: #### 1 [id number], [id number], [id number] ####[facility] (DEFAULT)[address] [place] [address] 25801 CO2 [Moles/Vol] 25 mmol/L Normal 21-[address] [facility] Comment on above: Performed By: #### 1 [id number], [id number], [id number] ####[facility] (DEFAULT)[address] [place] [address] Creatinine [Mass/Vol] 0.72 mg/dL Normal 0.60-1.[address] [facility] Comment on above: Performed By: #### 1 [id number], [id number], [id number] ####[facility] (DEFAULT)[address] [place] [address] Glucose [Mass/Vol] 100.0 mg/dL Normal 74.0-118.0 [facility] Comment on above: Performed By: #### 1 [id number], [id number], [id number] ####[facility] (DEFAULT)[address] [place] [address] Osmolality 275 mOsm/L Invalid Interpretation Code [facility] Comment on above: Performed By: #### 1 [id number], [id number], [id number] ####[facility] (DEFAULT)[address] [place] [address] Potassium [Moles/Vol] 3.4 mmol/L Low 3.6-5.[address] [facility] Comment on above: Performed By: #### 1 [id number], [id number], [id number] ####[facility] (DEFAULT)[address] [place] [address] Sodium [Moles/Vol] 138.0 mmol/L Normal 136.0-144.0 [facility] Comment on above: Performed By: #### 1 [id number], [id number], [id number] ####[facility] (DEFAULT)[address] [place] [address] Urea nitrogen [Mass/Vol] 10 mg/dL Normal 8-[address] [facility] Comment on above: Performed By: #### 1 [id number], [id number], [id number] ####[facility] (DEFAULT)[address] [place] [address] Urea nitrogen/Creatinine [Mass ratio] 14.0 mg/mg Normal 4.6-16.[address] [facility] Comment on above: Performed By: #### 1 [id number], 8757441, [id number] ####[facility] (DEFAULT)[address] [place] [address] CBC w/ Auto Diffon 2 Erythrocyte distribution width (RBC) [Ratio] 14.6 % Normal 11.5-15.[address] [facility] Comment on above: Order Comment: CBC C LOTTED. PATIENT CALLED BACK FOR RECOLLECT. Performed By: #### 1 [id number], [id number], [id number] ####[facility] (DEFAULT)[address] [place] [address] Hematocrit (Bld) [Volume fraction] 35.0 % Normal 33.7-40.[address] [facility] Comment on above: Order Comment: CBC C LOTTED. PATIENT CALLED BACK FOR RECOLLECT. Performed By: #### 1 [id number], [id number], [id number] ####[facility] (DEFAULT)[address] [place] [address] Hemoglobin (Bld) [Mass/Vol] 11.0 g/dL Low 11.3-15.[address] [facility] Comment on above: Order Comment: CBC C LOTTED. PATIENT CALLED BACK FOR RECOLLECT. Performed By: #### 1 [id number], [id number], [id number] ####[facility] (DEFAULT)[address] [place] [address] Instr WBC 8.6 x10 Invalid Interpretation Code [facility] Comment on above: Order Comment: CBC C LOTTED. PATIENT CALLED BACK FOR RECOLLECT. Result Comment: CBC RECOLLECTED @ 08/12/2021 15:15:27 EDT BY MHDMITCHELL. GILMORE. Performed By: #### 1 [id number], [id number], [id number] ####[facility] (DEFAULT)[address] [place] [address] Man Diff? Auto Normal [facility] Comment on above: Order Comment: CBC C LOTTED. PATIENT CALLED BACK FOR RECOLLECT. Performed By: #### 1 [id number], [id number], [id number] ####[facility] (DEFAULT)[address] [place] [address] MCH (RBC) [Entitic mass] 25 pg Normal 24-[address] [facility] Comment on above: Order Comment: CBC C LOTTED. PATIENT CALLED BACK FOR RECOLLECT. Performed By: #### 1 [id number], [id number], [id number] ####[facility] (DEFAULT)[address] [place] [address] MCHC (RBC) [Mass/Vol] 31 g/dL Normal 26-[address] [facility] Comment on above: Order Comment: CBC C LOTTED. PATIENT CALLED BACK FOR RECOLLECT. Performed By: #### 1 [id number], [id number], [id number] ####[facility] (DEFAULT)[address] [place] [address] MCV (RBC) [Entitic vol] 79 fL Low 81-[address] [facility] Comment on above: Order Comment: CBC C LOTTED. PATIENT CALLED BACK FOR RECOLLECT. Performed By: #### 1 [id number], [id number], [id number] ####[facility] (DEFAULT)[address] [place] [address] [id number] Platelet 491 x10 High 138-[address] [facility] Comment on above: Order Comment: CBC C LOTTED. PATIENT CALLED BACK FOR RECOLLECT. Performed By: #### 1 [id number], [id number], [id number] ####[facility] (DEFAULT)[address] [place] [address]1560 Platelet mean volume (Bld) [Entitic vol] 9.4 fL Normal 6.3-10.[address] [facility] Comment on above: Order Comment: CBC C LOTTED. PATIENT CALLED BACK FOR RECOLLECT. Performed By: #### 1 [id number], [id number], [id number] ####[facility] (DEFAULT)[address] [place] [address] [id number] RBC 4.41 x10 Normal 3.70-5.[address] [facility] Comment on above: Order Comment: CBC C LOTTED. PATIENT CALLED BACK FOR RECOLLECT. Performed By: #### 1 [id number], [id number], [id number] ####[facility] (DEFAULT)[address] [place] [address]11 WBC 8.6 x10 Normal 3.5-10.[address] [facility] Comment on above: Order Comment: CBC C LOTTED. PATIENT CALLED BACK FOR RECOLLECT. Performed By: #### 1 [id number], [id number], [id number] ####[facility] (DEFAULT)[address] [place] [address] MRI Knee w/o Lefton 07-27-19 MRI Knee [...] by Michael Pappas on 07/28/2021 1331 Normal [facility] [place] [facility] BASIC METABOLIC PANELon - BUN/CREATININE RATIO NOT APPLICABLE Normal - [facility] Comment on above: Order Comment: FASTI NG:YES FASTING: YES Performed By: #### 1 [id number] #### [facility] [address], [address] [place] [address] Ship Laborer: Hreaclio Miller MD Calcium [Mass/Vol] 9.0 mg/dL Normal 8.6-10.4 [facility] Comment on above: Order Comment: FASTI NG:YES FASTING: YES Performed By: #### 1 [id number] #### [facility] [address], [address] [place] [address] Ship Laborer: Heraclio Miller MD Chloride [Moles/Vol] 106 mmol/L Normal 98-110 [facility] Comment on above: Order Comment: FASTI NG:YES FASTING: YES Performed By: #### 1 [id number] #### [facility] [address], [address] [place] [address] Ship Laborer: Heraclio Miller MD CO2 [Moles/Vol] 27 mmol/L Normal 20-32 [facility] Comment on above: Order Comment: FASTI NG:YES FASTING: YES Performed By: #### 1 [id number] #### [facility] [place] [address] [place] [address] Ship Laborer: Heraclio Miller MD Creatinine [Mass/Vol] 0.73 mg/dL Normal 0.50-1.05 [facility] Comment on above: Order Comment: FASTI NG:YES FASTING: YES Result Comment: For patients >49 years of age, the reference limit for Creatinine is approximately 13% higher for people identified as -Guyanese. Performed By: #### 1 [id number] #### [facility] [place] [address] Ship Laborer: Heraclio Miller MD eGFR NON-AFR. UZBEK 96 mL/min/1.73m2 Normal > OR = 60 [facility] Comment on above: Order Comment: FASTI NG:YES FASTING: YES Performed By: #### 1 [id number] #### [facility] [place] [address] Ship Laborer: Heraclio Miller MD GFR/1.73 sq M.predicted among blacks MDRD (S/P/Bld) [Vol rate/Area] 111 mL/min/{1.73_m2} Normal > OR = 60 [facility] Comment on above: Order Comment: FASTI NG:YES FASTING: YES Performed By: #### 1 [id number] #### [facility] [place] [address] Ship Laborer: Heraclio Miller MD Glucose [Mass/Vol] 85 mg/dL Normal 65-99 [facility] Comment on above: Order Comment: FASTI NG:YES FASTING: YES Result Comment: Fasting reference interval Performed By: #### 1 [id number] #### [facility] [place] [address] Ship Laborer: Heraclio Miller MD Potassium [Moles/Vol] 3.7 mmol/L Normal 3.5-5.3 [facility] Comment on above: Order Comment: FASTI NG:YES FASTING: YES Performed By: #### 1 [id number] #### [facility] [place] [address] Ship Laborer: Heraclio Miller MD Sodium [Moles/Vol] 140 mmol/L Normal 135-146 [facility] Comment on above: Order Comment: FASTI NG:YES FASTING: YES Performed By: #### 1 [id number] #### [facility] [address] [place] [address], [address] [place] [id number] Ship Laborer: Heraclio Miller MD Urea nitrogen [Mass/Vol] 12 mg/dL Normal 7-25 [facility] Comment on above: Order Comment: FASTI NG:YES FASTING: YES Performed By: #### 1 [id number] #### [facility] [address] [facility], [address] [place] [id number] Ship Laborer: Heraclio Miller MD Coding Summaryon 01-28-2021 Coding Summary [employer] [id number] uOPxasH3ydWNaI9h0XqBiIE 63vN06UKdsZKJxVvZ2JtZjq jsgbWFy P5ffQkFpuEOyMiz+PHRhYmx lIHdpZHRoPScxMDAlJyBzdH ilXW2uPx0xEYPwZFIatNrtl HNlOiBj g8bhHGEdQVgyAZ0usXcvG3R sgZP3EVYux4h7De90oDT+PH HwDGQ6uNfvXAnuw040RsUuj 1vzKJT0 nZEcFDemMEC1L08qc2S0EOB hPRYtJDV4uZN9xK2thYhglb tlX4CedMJyJsV3SSM0vUBbp P4oiXbi sumoeK0gNlt+X35QZV2FSCJ YSX8DAhm6G4OwYmhbbCR+PC 67BYQzVG38lJPgqLGby9jzp Sj0JiHz QZCoVYN8fQwtNUnzn1WhBHU pV47eaDOhm8O5FZMhoEhvbT CnMaWviCF2aH9xQLgnksfsb 2hvdzsn Ivutm0waqs57yW64P70pIQn kPNUrQBG6VXErVYXlwQikuz 7zoZ4vLy5+BJmij0zqd5inj Yj0TvPs UFJqlwLlhKqcPEN1m3JcVi9 2H1AgwTcmc8QlVlu6dz63aA Dev2M1lFL5PLadMFXooI6yC WxlZnQ6 EWJyNkZebY60uESpXWgyRe1 wxUznlOuuXV2yKEEiiftiLD ZzaG2uADVuwBBooOmzWQ4cH TBpbjtm h305IyCqDJV7QVXpqYSeE0V krO5uCtFgCVYpKWEpI2VfqN IrBRjiQ949YLksDjT6CTKvn lYaO4Nn ACRufQcuSrA4w0O3Ky9Ud0Q ajvgpCSW6TClxYNKcXiR9Lm RvNiW7S5MiVdx6RCNtbPvqG I6aP3Ih KZKnlhsqunlbtMC7HELwVRY glP86fNHuSXhoPu2vl1L5s5 99OKLbHZAiwC94Wl1wgCizE TBwdCBU mT5pxsbof5tasibsFzAhNZP zXFv2CQg3XFRcuZbuFiEySG F1BbU8ZKI0qJSdyT8ryCuwo zvcbO9u Oyc+N84uyG1bNXO3QWD4jfv tSMCjtcEtFC39WX16N1FrBb wvdGFibGU+PGRpdiBzdHlsZ V8gQuIy h4djv5XoROneP5OkATLiEYp gMpp2OHFvDFA2zPN1kQ0lNH UkGDhvp8C3mXT7E3PdlyCgt z5od3rn JJXoWDmyR56gkTJqf5E9SPX wxLZ3YTGvoReyXwXvfO29Hb c+ZRPdeUowr7DhTwafo1buh 3higFd0 ZzRxHJGolvLflXaqOTW5f8V tRq13S21yOAbvYRUgPHUnZK CiEZZkwVumbd4akE5vHt6+P GNvbCB3 aZA7dH3xEZIkHqZ3PUlxR73 9UyVowMDzYiazx6ayc7vtxX v5CzJmHHCbjbNicPekTJG1z 1KsZo16 V18pSAsiZBRxJKXkLJJvDCU uwByhyd5sjJ9jAr4+PC9jb2 tnyb19oU96gNY+QHYwURC7i WxlPSdw YRMprI2pDJufWrJ1IYVjNlY mfM69wJKxECadJn7jxMyeiQ dpXU8uJDQdzdyog717VtZsv 2xkIDEw tKMtCFmhOJQ9Z01cx8U1DWR xWHTuSHY2uDF0xI7xuHbbeo ogbGVmdDsgdmVydGljYWwtY CajM290 IHRvcDsnPlBhdGllbnQgTmF rIYm8E7SaBnv6FETsbHuoEO 4kmGTqUHysTp2ziRqsiJgxS C0gWNJt mmrnu628DlKwx9rrHKVsbVS fDXtgSRE2V25ux2K3CKLiZF RkETN5nUE7qM4fzTgrucolt GVmdDsg ukYdjYclYOrjPCgtZ149RGN nqAeuThDidcEoARVvxFK6UG 87DT63hRTmz8J8uRP2P9DlO GRpbmct bamfwQM7ZWKgCEEmdN00Vl5 noNoiSh3uZSScBIV6PPKufG CsH7QugJ3zZkQbWBGoEDAvA 3RleHQt UAerK512ZYqdHxP8DWNekfQ lC7EwLAYwjUtfOqA0r5K8Bm 9XP8F5ET12OJ63qGGfl3D5b QC2E2An TBMzttstmcccuGG2DASuDSW tkJ45Vn2ysNrwCx5hLXKoFN W6JWJdbUGlV7JkjD7vDrQdH DAwMDAw Z9UjxCHnPLryR490EJdnCpG 0EWTsbjPxX1StFEUjhTscTu K7t1E3Kw4VGNb6ZW99FR37s EZzc5J4 uZJ0I9JuAERegqhtonvsqEV 9IVMdMQNwtP42Os9efRtpBn 2nRGLnBZN4TPZrpGCsE4Qar Y0pLtIj IGMtGMKxG4UijMLkCCahR26 8BGosYnH1QHWxtuGkT0TuYQ CbcYatPuK9k2K6Ua2JDLQdJ R06PNT2 pWE9VJ13ZJ63K3TjYlkpmDD ibGU+PHRhYmxlIHdpZHRoPS umXTMtJiRmuWqqZN0bMk2rC GVyLWNv mYuljGQeGkMqd6lcNVSmBEb tTC0jtWapG4KwlBB7OECqy0 j9Ed24W26tY3VdzFQ+PGNvb GW5tRG9 jP6eJuKbRpI8EKmiY836WtH fcGNtXxdca5wye7mxcHq8Zg B0MYOukjPpdKpjQIR9g7HuQ f82X69o IHdpZHRoPSIxNSUiIHZhbGl zel6erZ1oAf9+FPEzvWK9uN J3dI7sFyMkNqO7FQtyK087Q nRvcCIv Zivoj6nfx2pejTc3LhEtCTM eraZuuWivMNV6q3ZqJg59M4 BexCegj4LeSiv8az26dEHan 7I3rCZ4 W9ZhQUYhtuauqLGpcQrxRD7 tMXIpzixaOXOnsP5fVITnF5 m9NcIwIjA5OYtcA1ZirlG9L DEwcHQg AApmUMY8J30ka3K4WBMpHJV kAUY7nKO2fB1ujNreeedgsI VmdDsgdmVydGljYWwtYWxpZ 246IHRv uUkqOLZfcH4lDGJvmGFuqGt fZC4zWDHzctqyXqfATF0VFd wgRUxJWkFCRVRIIEFOTjwvd GQ+PHRk NTE4mZxeHJiaELFibL2sJOG mP0x0LxNeQhR6XSexY6NlCA BfvkznTg78jR6eFiKsJmO5B IgkK4Sb xrS0SMZlxOZvCVrzSAG8M37 er1L9YAEaHKUkEVI5wJA3wP 1hbGlnbjogbGVmdDsgdmVyd GljYWwt QPmxV216RBWxnJoyEeO7UiQ pDjF3UsN5E2CuXfn7UBXngX xmXM6geKQnDGthSs8tsYild MnvTD8h WSUilypcILFmnK9iAYXdgGM vfPklTA1bXOXkvfzdt668Pm EzDRQ9TJTrsCEnJ3MwkW5oD iAjMDAw HREtR7GznEMeDGoqJ018RBt nTbF4QLAlxrBaB3HvVYUjmA lqBmQ6n3G9Gt79ZIMQVBAbc zwvdGQ+ STOzNOO4bDqePXqwYNVjrK6 sHKHiV0r3DcPaPoB1AEaaZ3 DtEMLygkxnZa85rI5lIuZrQ qW8XGbd I4LuykS0GQGhiSChNLdaXHV 7W49qk8S6ZUEbJUWhTKP4zF O0yL3uvPyteuzcrSCoyCldh mVydGlj GYsxTFwaY030YZXevIxvNkS FTUFMRTwvdGQ+NJRqYXC9zH szRCrhPJKygI5dQZKaU0o2T iAwLjA1 YXlvZ2SuSSEmqizhQk76nG4 gBrLyFmQ2BAcoM9UnlwJ7DV LokBDzYFkqQVV3U11ba5L1W CMwMDAw KWK4kLL5kX5kjDfnuvjhrNT mdDsgdmVydGljYWwtYWxpZ2 46IHRvcDsnPkRheSBTdXJnZ DT6HU97 UW52S3RsJqprzUMkpJS+PHR hYmxlIHdpZHRoPScxMDAlJy QoiJpjNC3aDd2cVKKpIQVdn GxhcHNl TrTdx6tmVKSpSOsqKH9wlAu lU5EjdNL3SMAke1a9Pl70K9 3jE2MvaLK+IKDpxYJ8rHQ7a C5sCnNk NiC8XFbhY542RtFfzHNpUil yv7mmt3zdyRy2UdEtSXJtxi MngAauHQU2b7IlVw86V10pC HdpZHRo UKJwZRCpOPGgnJmjiz4fxY7 wIi8+SSUnvZU3zSR2nD9yVk EmPfA7UIikX891LfGtaUDnS daaG48h J1WboJU+BWCpNzg8JABfvEh dZH1ypLQqIYpgBy7jMOB1Kh HaRlJhUCjnA7VrBBFjmusiu mlnaHQ6 HEPvXSEetU42Ns9ywSbqQi5 aLDOxCAK3EIPsoNJnN6IzrC 4iZbTeLSOtMVCtF7DslRUuO OwbW401 KCsxIaM0XZRjvjBpE1FwCTN eqRlxGlV6n8X9Qw2BvVhhpB SmHO0zCsLaIJd6E3YcIqv0V CBzdHls UH5tpQEuCWzxGx8ooUfvbJa yLV9kXPMsggyzl644OaPri0 dmNZFmtZUxLPkcDGE3P74sd 2F8PRGe TTYiXLS2lBM8bQ4kqXoxhdq gbGVmdDsgdmVydGljYWwtYW oxW602WIIexGqwTmGXUdv7N 1JhJlr4 YWKepMwpYS3diEVoSSyhTg6 ojXvlnLfxDA8sVWCzbogrv3 86YiRqa9shDNColZOsSOnmC SB4N10i j2M2HVBiTCPyFNU1hXI6tO6 hbGlnbjogbGVmdDsgdmVydG bySPlcHClaS658BKWrzHvzE c7JXwy5 F3MlWgk9RRTnjMfzGA8jlII dQAdcNe2szDoewMfmLG4uXE Xyruzxt013JoJuz4iePFWmw HQgVGlt RPD1H18uc7J8WFEtZHMsUPC 2jWO4sI1weXoiwhrlhUMfiA ipteSskDxxFIsyRSziJ578H HRvcDsn PlBheWVyOjwvdGQ+SV35gg1 6S3UzCeroSdl5UKKtTOJ3hS U6jJ7fXDPtBSfsa8E9yPP3Q 2JvcmRl ci1 (more content not included)... [facility] Consent Formson 01-23-2021 Consent Forms [id number]#1.00O [facility] PAC[facility] Record [facility] PAC[facility] Record Summary Primary Physician: Hua Oglesby DO Finalized Date/Time: 01/23/21 13:00:07 Pt. Name: YASMIN JONES/Sex: 1970 FEMALE Med Rec #: [id number] Physician: Hua Oglesby DO Financial #: [id number] Pt. Type: D Room/Bed: / Admit/Disch: 01/21/21 06:05:01 - 01/21/21 10:08:00 Institution: PACU Case Times MAGR Entry 1 In PACU I 01/21/21 08:20:00 Discharge from PACU 01/21/21 09:04:00 I Last Modified By: Lisa Connell RN 01/23/21 13:00:04 Finalized By: Lisa Connell RN Document Signatures Signed By: Lisa Connell RN 01/23/21 13:00 [facility] Consent Formson 01-22-2021 Consent Forms [id number]#1.00O [facility] Discharge Instructionson Discharge Instructions [id number]#1.00O [facility] Telemetry Stripson Telemetry Strips [id number]#1.00O [facility] Anesthesia Noteon 01-21-2021 Anesthesia Note Patient: YASMIN [...] on: 01/21/2021 08:25 EST] Gen Jean MD [facility] Anesthesia Note Patient: YASMIN JONES Age: 50 years Sex: FEMALE : 1970 Associated Diagnoses: None Author: Gen Jean MD Preoperative Information Anesthesia history: Patient history: Nausea and vomiting with anesthesia, No difficult intubation, No malignant hyperthermia. Family history: No malignant hyperthermia. Review of Systems Respiratory: No shortness of breath, No apnea. Cardiovascular: No known SC, No chest pain. Gastrointestinal: No heartburn. Health [...] All Problems HTN (hypertension) / SNOMED CT 3200818568 / Confirmed Histories Family History: No family history items have been selected or recorded. Procedure history: Abdominal hysterectomy (444306331). Arthroscopy of knee (238945791). Lipoma ([id number]). Comments: 01/04/2021 11:19 OSKAR Becker RN, Milana [...] (JAN 21:25) Resp Rate 16 br/min (JAN 21:) SBP H 169 mmHg (JAN 21 06:46) DBP H 103 mmHg (JAN 21 06:46) General: Alert and oriented, No acute distress. Airway: Mallampati classification: II (soft palate, fauces, uvula visible). Respiratory: Respirations are non-labored. Cardiovascular: Normal rate. Review / Management Laboratory Results ECG interpretation: Within normal limits. Plan [place] [employer]hesi[employer]#(ASA) physical status classification: Class II. Anesthetic Preoperative Plan Anesthesia: General. . Anesthetic plan, risks, benefits, and alternatives discussed with the patient and/or family. Patient verbalized understanding. Family/Guardian present. Informed consent was given. Consent was signed by the patient. [Electronically Signed on: 01/21/2021 07:10 EST] Gen Jean MD [Verified on: 01/21/2021 07:10 EST] Gen Jean MD Normal [facility] Inpatient Patient Summaryon 01-21-2021 [place] [address] Patient Discharge Instructions Name: YASMIN JONES : 1970 Patient Address: [address] [place] [address] Primary Care Provider: Name: RANDY CALLE After you are discharged if you find you have any questions, please, call [phone] ext [phone] to speak to a nurse. Discharge Diagnosis: [...] problems; contact the [facility] 22/09 Crisis Hotline -Text 4HSUN ap 587495. If you received any narcotics, sedation, or [...] business decisions or sign any legal documents [facility] would like to thank you for allowing us to assist you with your healthcare needs. The following includes patient education materials and information regarding your injury/illness. YASMIN JONES has been given the following list of follow-up instructions, prescriptions, and patient education materials: Follow-up Instructions With: Address: When: MYESHA VINSON [address], [address] [place] [address] Business (1) 01/30/2021 11:00 AM With: Address: When: RANDY NORMANMAGALYS [place] [address] Business (1) Medications During the course of [...] or concerns, please call the office at [phone] Viruses or Bacteria What?s got you sick? [...] (except strep) (more content not included)... Normal [facility] MAGR Intraoperative Recordon 01-21-2021 MAGR Intraoperative Record MAGR Intra-Op Record Summary Primary Physician: Hua Oglesby DO Finalized Date/Time: 01/21/21 11:10:34 Pt. Name: YASMIN JONES/Sex: 1970 FEMALE Med Rec #: [id number] Physician: Hua Oglesby DO Financial #: [id number] Pt. Type: D Room/Bed: / Admit/Disch: 01/21/21 [...] Role Performed Surgeon - Primary Anesthesiologist of Knockdown Man Record Time In 01/21/21 07:22:00 01/21/21 07:22:00 01/21/21 07:22:00 Time Out 01/21/21 08:17:00 01/21/21 08:17:00 01/21/21 08:17:00 Procedure Arthroscopy Knee(Right) Arthroscopy Knee(Right) Arthroscopy Knee(Right) Last Modified By: Dorothy Archer RN, Barbara RN Long, Barbara RN 01/21/21 08:21:11 01/21/21 08:21:11 01/21/21 08:21:11 Entry 4 Entry 5 Case Attendee Nemo Mendez RETAIL [employer]AR ADVISOR Kathy Moreno CST Role Performed Scrub Personnel Program Lead Time In 01/21/21 07:22:00 01/21/21 07:22:00 Time Out 01/21/21 08:17:00 01/21/21 08:17:00 Procedure Arthroscopy Knee(Right) Arthroscopy Knee(Right) Last Modified By: Dorothy Archer RN, Barbara RN 01/21/21 08:21:11 01/21/21 08:21:11 Surgical Procedures MAGR Pre-Care Text: A.20 Verifies operative procedure, surgical site, and laterality Im.150 Develops individualized plan of care Entry 1 Procedure Arthroscopy Knee Primary Procedure Yes Primary Surgeon Hua Oglesby Right Efra GALLEGOS Surgeon Comment RIGHT KNEE ARTHROSCOPY Start 01/21/21 [...] 07:55:36 Post-Care T (more content not included)... [facility] MAGR Postoperative Recordon 01-21-2021 MAGR Postoperative Record MAGR Phase II Record Summary Primary Physician: Hua Oglesby DO Finalized Date/Time: 01/21/21 10:17:55 Pt. Name: YASMIN JONES D.O.B./Sex: 1970 FEMALE Med Rec #: [id number] Physician: Hua Oglesby DO Financial #: [id number] Pt. Type: D Room/Bed: / Admit/Disch: 01/21/21 [...] Signed By: Marianna Gerber RN 01/21/21 10:17 [facility] MAGR Preoperative Recordon 1 03-23-2020 MAGR Preoperative Record MAGR Pre-Op Record Summary Primary Physician: Hua Oglesby DO Finalized Date/Time: 01/21/21 08:40:07 Pt. Name: YASMIN JONES/Sex: 1970 FEMALE Med Rec #: [id number] Physician: Hua Oglesby DO Financial #: [id number] Pt. Type: D Room/Bed: / Admit/Disch: 01/21/21 [...] By: Carolina Painter RN 01/21/21 08:[address] [facility] Operative Report - Surgeon/P aster 01-21-2021 Operative Report - Surgeon/Physician Preoperative diagnosis: Internal derangement right knee Postoperative diagnosis: Tear lateral meniscus right knee Procedure: Arthroscopic partial lateral meniscectomy right knee Surgeon: Max Oglesby, DKati Anesthesia: General Indications for surgery: Ongoing pain [...] on: 01/21/2021 10:16 EST] Hua Oglesby DO [facility] Patient Handouton 01-21-[address] FINK [...] or concerns, please call the office at [phone] Normal [facility]ABOLIC [facility] 01-12-2021 Albumin [Mass/Vol] 4.3 g/dL Normal 3.6-5.1 [facility] Comment on above: Performed By: #### 7 600, [id number] #### [facility] [place] [address] Ship Laborer: Heraclio Miller MD Albumin/Globulin [Mass ratio] 1.8 {ratio} Normal 1.0-2.5 [facility] Comment on above: Performed By: #### 7 600, 99710 #### [facility] [place] [address] Ship Laborer: Heraclio Miller MD ALP [Catalytic activity/Vol] 60 U/L Normal 37-153 [facility] Comment on above: Performed By: #### 7 600, 05922 #### [facility] [place] [address] Ship Laborer: Heraclio Miller MD ALT [Catalytic activity/Vol] 17 U/L Normal 6-29 [facility] Comment on above: Performed By: #### 7 600, 24373 #### [facility] [place] [address] Ship Laborer: Heraclio Miller MD AST [Catalytic activity/Vol] 18 U/L Normal 10-35 [facility] Comment on above: Performed By: #### 7 600, 36130 #### [facility] [place] [address] Ship Laborer: Heraclio Miller MD Bilirubin [Mass/Vol] 1.1 mg/dL Normal 0.2-1.2 [facility] Comment on above: Performed By: #### 7 600, 29150 #### [facility] of [address], [address] [place] [address] Ship Laborer: Heraclio Miller MD BUN/CREATININE RATIO NOT APPLICABLE Normal 6-22 [facility] Comment on above: Performed By: #### 7 600, 03386 #### [facility] of [address], [address] [place] [address] Ship Laborer: Heraclio Miller MD Calcium [Mass/Vol] 9.3 mg/dL Normal 8.6-10.4 [facility] Comment on above: Performed By: #### 7 600, 00414 #### [facility] of [address], [address] [place] [address] Ship Laborer: Heraclio Miller MD Chloride [Moles/Vol] 105 mmol/L Normal 98-110 [facility] Comment on above: Performed By: #### 7 600, 73944 #### [facility] of [address], [address] [place] [address] Ship Laborer: Heraclio Miller MD CO2 [Moles/Vol] 28 mmol/L Normal 20-32 [facility] Comment on above: Performed By: #### 7 600, 38301 #### [facility] [address], [address] [place] [address] Ship Laborer: Heraclio Miller MD Creatinine [Mass/Vol] 0.86 mg/dL Normal 0.50-1.05 [facility] Comment on above: Result Comment: For patients >49 years of age, the reference limit for Creatinine is approximately 13% higher for people identified as -Guyanese. Performed By: #### 7 600, 04469 #### [facility] of [address], [address] [place] [address] Ship Laborer: Heraclio Miller MD eGFR NON-AFR. UZBEK 79 mL/min/1.73m2 Normal > OR = 60 [facility] Comment on above: Performed By: #### 7 600, 46520 #### [facility] [address], [address] [place] [address] Ship Laborer: Heraclio Miller MD GFR/1.73 sq M.predicted among blacks MDRD (S/P/Bld) [Vol rate/Area] 91 mL/min/{1.73_m2} Normal > OR = 60 [facility] Comment on above: Performed By: #### 7 600, 21771 #### [facility] [place] [address] Ship Laborer: Heraclio Miller MD Globulin (S) [Mass/Vol] 2.4 g/dL Normal 1.9-3.7 [facility] Comment on above: Performed By: #### 7 600, 26835 #### [facility] [place] [address] Ship Laborer: Heraclio Miller MD Glucose [Mass/Vol] 86 mg/dL Normal 65-139 [facility] Comment on above: Result Comment: Non-fasting reference interval Performed By: #### 7 600, 87640 #### [facility] [place] [address] Ship Laborer: Heraclio Miller MD Potassium [Moles/Vol] 3.9 mmol/L Normal 3.5-5.3 [facility] Comment on above: Performed By: #### 7 600, 73401 #### [facility] [place] [address] Ship Laborer: Heraclio Miller MD Protein [Mass/Vol] 6.7 g/dL Normal 6.1-8.1 [facility] Comment on above: Performed By: #### 7 600, 23716 #### [facility] [place] [address] Ship Laborer: Heraclio Miller MD Sodium [Moles/Vol] 140 mmol/L Normal 135-146 [facility] Comment on above: Performed By: #### 7 600, 10496 #### [facility] [place] [address] Ship Laborer: Heraclio Miller MD Urea nitrogen [Mass/Vol] 15 mg/dL Normal 7-25 [facility] Comment on above: Performed By: #### 7 600, 80264 #### [facility] [address], [address] [place] [address] Ship Laborer: Heraclio Millre MD LIPID PANEL, [facility] 11- Cholesterol [Mass/Vol] 173 mg/dL Normal <200 [facility] Comment on above: Order Comment: FASTI NG:NO FASTING: NO Performed By: #### 7 600, 39424 #### [facility] [address], [address] [place] [address] Ship Laborer: Heraclio Miller MD Cholesterol in HDL [Mass/Vol] 69 mg/dL Normal > OR = 50 [facility] Comment on above: Order Comment: FASTI NG:NO FASTING: NO Performed By: #### 7 600, 33667 #### [facility] [address], [address] [place] [address] Ship Laborer: Heraclio Miller MD Cholesterol in LDL [Mass/Vol] [...] LDL-C. Campos CAMARENA et al. MARQUISE. 2013;310(19): 3915-6810 (http://education.EnergySavvy.com.PsyQic/faq/MTR729) Performed By: #### 7 600, 25149 #### [facility] [address], [address] [place] [address] Ship Laborer: Heraclio Miller MD Cholesterol.total/C holesterol in HDL [Mass ratio] 2.5 {ratio} Normal <5.0 [facility] Comment on above: Order Comment: FASTI NG:NO FASTING: NO Performed By: #### 7 600, 10804 #### [facility] [address], [address] [place] [address] Ship Laborer: Heraclio Miller MD NON HDL CHOLESTEROL 104 mg/dL (calc) Normal <130 [facility] Comment on above: Order Comment: FASTI NG:NO FASTING: NO Result Comment: For patients with diabetes plus 1 major ASCVD risk factor, treating to a non-HDL-C goal of <100 mg/dL (LDL-C of <70 mg/dL) is considered a therapeutic option. Performed By: #### 7 600, 80816 #### [facility] [address], [address] [place] [address] Ship Laborer: Heraclio Miller MD Triglyceride [Mass/Vol] 68 mg/dL Normal <150 [facility] Comment on above: Order Comment: FASTI NG:NO FASTING: NO Performed By: #### 7 600, 47203 #### [facility] [address], [address] [place] [address] Ship Laborer: Heraclio Miller MD Coding Summary 01-09-2021 Coding Summary HTMLBase 64 LzvqbjnoJYd6gNx+PGhlYWQ +YI2EBPMrU71qhPMziT4TA9 yACU7LLLAQKUQPEU1CKX1gr PB5LIceS1EltcUo IxmmuURuUI40GBp7ZRX4qSx iEAhqbH9yyKKdO8s6BfJxHT 61aQ31ZFqnPJEhNzD9ZcQwd jsgbWFy M0mlWjQawRVvJwv+PHRhYmx lIHdpZHRoPScxMDAlJyBzdH vuNC8aGz6sAOCfEDFfcIvjl HNlOiBj y6cnKJHeEMyqPJ9jlDwxF7A njOD1HBSsu2h9Nk32iLD+PH InZBD2wRjwKWntr038IsHvd 1msHLB3 bVEiIYzrAMC6H73kh4E1WAL wLAEaFAX2kAU1sN3bgZdxbx ndC2WztWWoBaM4VKU6iQFbb J4viRso ltiwrD3mZwu+X00ICX6UQIW DAL1UNxf1I5RbYexmaCJ+PC 91BYGwFV91zJPkyAFav1fho Wp5OzBy AZKdLQE0zQqwONpnk5KzHWA oM35fwHCka8A1YEIpeQmhmY FrAiSxnOM3yL7sHKounhxsw 2hvdzsn Nzxna0yonp10dZ26D83qCVt zBFPeVTI3BMIrXDToeDajto 7bhR4sKo9+JPcak8qan8qee Be5AvTz DNQiyxOqcBpzZCX5x0JdGx3 6L2FziYygk2AzXcg7gz49jR Xeu6U1mWE4MSbjGXRrbF4xO WxlZnQ6 PWJoMxHnoA40yUPaEKrmPl7 hkDayiYkhCZ9xTXNzigalZM ZknD8kOXYhtLDypDhqUW4uF TBpbjtm p242EiUzNHQ0MREouZJeW0M pnQ5oKrDsPJZpCQEvS4SqmO BzYHusO097GBgiNtG2BTWae mFgZ2Ld WGNqmEjaQpY4z3V1Ns7Dm3H peshlTYQ5ATocGWToGbPjOw ZnNeN4R8XkTuo0YOYjiRrkB Q5wX2Al NMAlxjplvwlaiWO7JERlJBC fbE55qXHlTXqkSe3nu9X9v6 14YBHyTRMwtK92Ax4odDjtY TBwdCBU xE8ofatqj3xhscrsWrCkEGN cGMr4WSi7ZUFfkFtpIgWuRP O8MzJ5NSO8oFAsmU5dzPaqu dznyL2w Oyc+M26qyZ1nBJT5VRP1aiv sCTYmqoZkED74PR39I7OiMq wvdGFibGU+PGRpdiBzdHlsZ U2mVqTw n4cdz8ShKCnjW1ObUHPrQLn vOrd1ZVWdIOI7jRO1sC3xWT NbHGfse5E2tOH1O8InzmGax l2dr3cg PQJkZTbqY36jrWFci6V9NKR hzVF2HSKeqPsxKmNueR92Lb c+HREbzQzuk7DrOupmt4uyv 3wctRd6 JfIsZQFzjyDzfOodDIT6j9O nZv15V41pQBhoRNKbDGPiXL SmPWTawNrnwd2gaH2yMg1+P GNvbCB3 pCS9rD8yOFZlGqC0PVxsK20 7AoZstHJxDglsy5ats4mnvK f0TgPrMLCfhuBruDwqABE7o 8QjVh74 W03vGKehGNPzCUGmYBQrPTG bvDlioz6jjS3fNf7+PC9jb2 vrwx95aV18wRH+MTSsWOV5b WxlPSdw KTMtdP6uDSdpMzU9ZJIcOuW ctI81fUZnFNmfKr5dzLygzN ftSO7nGCQsftdbz535RwGpj 2xkIDEw tXHxTYdzRGJ3Q45zn1X6XKK wKPGxJLM8wWG8oU1dbLonqt ogbGVmdDsgdmVydGljYWwtY MoyR601 IHRvcDsnPlBhdGllbnQgTmF iXPh0S2JnDdr7CIEvlZarCP 9aoYIoXAhsKr6gcViwfEpeT F1mBSYb klrpd642VyHbk0qkGUMiqCQ mWDrpNYD8U36tw8W4RSJkSK NrCKS0tWF3kV4vaOoilncex GVmdDsg upGbvMmzUWrfWGgnV931MYR jyWgsBcXiihLvEHAvfUE9BP 00MW75lHPkm7H6oIJ7B8CcF GRpbmct ytwcuZC9MZKlCFVolB00Wz4 giMtgSh1iWUKvGDY5OCDucN TmN8LhyO3yMjVvCYAxLSRqQ 3RleHQt VXbrO904HAauDbC5GTNnxjF wK4MtIITqpIprUpY1r3Z1Uu 1US6B1BH54IP23bSCtn6B2y MB1M1Pv GOMevizgrrdthIM5ENFjLOW agR65Fi7mfJfnRv2tWCQsUK E4HAWolXYjI8ItjW8hGgNnK DAwMDAw Z9BbnUFwJXhfE021ONbbVqH 0WPOwafBoX2NmOLEdnPlvHp P4y8T4Lt3CSVe2PI54LL62y UKul8W2 aYN4K1AuJPEtqxpljtmnuIU 9HTQpOJJdfO34Jy4ssTptXl 0dPKDfOGM0DFQesDLzL7Ymb Y9qGbWq ALAiRCGxS6BpkICjUTftY48 0WMfiSxG6NFXdpuQdD7QmWS YvgDdkTkG4q6L6Vz1JZMQaA S55QTP2 nOH0TR09NU51M3UyChazjEN ibGU+PHRhYmxlIHdpZHRoPS xyKAJoNxEjgGzrWV3yYm3cA GVyLWNv wJfjgCTvQbSaq5pxZENcXIy xBS7uhUodL6PxnVA0ODBpr5 o8Py75V62zJ8BxvUG+PGNvb ZN9fUZ5 kZ8tTnMgGrA5AIxjM590SbJ tzHXxPxslg0fuj0tnbNn2Hf L6ZGStydKktDabQYY9x3RcO l92S39f IHdpZHRoPSIxNSUiIHZhbGl eeq7mlB1rNu5+LRCzqIZ6iX R3xU7cLfUiAeK5RYlqT418E nRvcCIv Avxxt3cjk6wtnUi7TrMqSND juqFzqVijPQD4r4FqCq54Y5 DbvMfxw5RcBol3gu95hFHgx 9A3aYS3 A0RuNKEkcfwqfPYjaZwtLB7 gWFYpfohzRPHorS6kAUSdC5 z3ZvKmSnF0BDteD3DittF9S DEwcHQg ZLbkLGC2X36gg4I0AXPhZEV eQIU3zGL6qG1adPbjnhyhhV VmdDsgdmVydGljYWwtYWxpZ 246IHRv cZonBKPvxC6xRRRwkZJmgHb tGL9sSYRhgkcdHehSOI8XGv wgRUxJWkFCRVRIIEFOTjwvd GQ+PHRk PKN7lXfpGVnkLVQepP8rCUP jX6k2ZdIlXqT4IEsxU0KxTR YitqwmFv32yP8iPhTeQbN3Z HlbG4My taV5TVGjeRTrSLhyFCQ7E70 tv2C1AZTbTRSfXFB9rGD5bG 1hbGlnbjogbGVmdDsgdmVyd GljYWwt CJcgI271IUAjqHyoXfG0WhA aJnX7HyT0M2NwPjw8VPQwrZ vkIE7gqDFxGEakSs3xqZocb GurCU7r IWHzuygoGNBpxZ5gXLKmhNG eeDawCY4sJYEcbmdwo625Nf CcYDF3JWCfqUBhT9OzeF2zP iAjMDAw QFEzK4VolPGcPNheJ098ZFw iIbT0BVVaueVyV8ChXQUelP nqYoO0t1U6Uv27YHBCWJOfn zwvdGQ+ ZKTxAZG5oUxtDJrjQFGpfG7 mODDjK2d7JpVkYwD2FYncC6 BfWXVjjdbhRn11tJ2uBaHlP iF4ROus K9NhlmV6WBSwiDHwBEiiUMX 6H49hp7F0MIFiJZYnKXU6mI T8oN0vmGqrajmmyCWxtYwab mVydGlj BLlqMIpiU334GSPjcNfuMeG FTUFMRTwvdGQ+TPTiYPO1gQ qmTPspFIPqzG2iNKZdE1l3T iAwLjA1 NVclO2LpOMSgoovqMy05bJ8 mCaKhQfP1WYvnW8FiczV9UY QoyAFuHKmgROS4G34kx3R5Z CMwMDAw VEY0bSY4jW7hmCmgtzlrzHU mdDsgdmVydGljYWwtYWxpZ2 45JZUzcSoxGj7YAJ02PK25W 3RyPjwv dGFibGU+PHRhYmxlIHdpZHR nSTnqGDOlRrDssNpyYI6lTj 9yZGVyLWNvbGxhcHNlOiBjb 2xsYXBz WEnpTX0ymNeyS3TecHX9LXF sp0u9Ei98E48rT7YnfWN+PG JcuHK1dMJ9uP4lXcByLkS2Q OvvS197 OtEiwUQrYeevm2cmj9pimAa 0OnEyPMGxusVlhIddGJO9m1 HqLz46O78uKVlqOWIsMQShS CUiIHZh jIezot1exU5mBk5+PGNvbCB 6lJH1lT1xIoQzPyR2UKilR9 34AyZxiQTuJduqP92cV0Ftp XA+PHRy Gvd4VSQzxUsxEB9lnUKaZNe pAw7iMSZ6EvRiFsZzZLflX6 XgWBCokkkjjmssbIN3GRJjQ DUwaW47 Ke3crWgfJq3zGYPbMKA7PJS ejKFgY6QzaV2fGbYaRHJtXC ZdJ9LydFFnSOhiZ306IJhtI bD2VENf rkRdF5VmUBSpoInmJoB3w4V 1Sd4ZkMtohNXpNW9lZaUxDO z7K5RmBmg8VKMzvGbdFT2qi GFkZGlu Jk3oxUhxbDmoPL0bGYKwhmk sq367KcXun2ijGFHpgFXiVF xfEMY4Y80aj7T5NVRlBDRhP IV3vKA5 yB1lpCcuauufqPJmrNdhhtV wpYcfTZjbQXbhO991HQGreP nsTcNWGzc3P4OaKqn6OAVaz TvuCI4o zRWmTKufXh4ioWyhyNslZV6 nVCScolvgn171OvIse1geRO TejXRnABxlEIF0K92es1L8Q CMwMDAw GNX2qYD2fV9dfKsomqnmtJY mdDsgdmVydGljYWwtYWxpZ2 34NTGksJbxIj4IWjo3D6FoI ab4HBVq xMtbKI1auCHeXBhlAw6zgVw pnBrgWA2fHSJlfimon095Ex Hwp7gpESYpaBEaTIqmPDW8G 07et3J0 WDHwQZGgUNN3pLI0yV0jnEo nbjogbGVmdDsgdmVydGljYW jtYJcvZ854GFGrgKweKoGxn WVyOjwv dGQ+BX53kc04A4FsVleeTxf 7NBXqTIU4aYP4gO4yOIGfKD ewh0P9rET0O9QvjkQvpq5lv 2xsYXBz ZTo (more content not included)... [facility] Consent Formson 01-08-2021 Consent Forms [id number] [facility] Progress Note - Nurseon Progress Note - Nurse PAT review for 01-21-2021 surgery reviewed per anesthesiologist, Dr. Gutierrez- no additional orders received. [Electronically Signed on: 01/07/2021 14:24 EST] Elvira Navarro RN [Verified on: 01/07/2021 14:24 EST] Elvira Navarro RN Normal [facility] .Auto Diff 101-04-2021 Auto [place] % 8 % Normal 1-[address] [facility] Comment on above: Performed By: #### 1 [id number], [id number], [id number] ####[facility] (DEFAULT)[address] [place] [address] Baso Abs# 0.1 x10 Normal 0.0-0.[address] [facility] Comment on above: Performed By: #### 1 [id number], [id number], [id number] ####[facility] (DEFAULT)[address] [place] [address] Basophils/100 WBC (Bld) 1.2 % Normal 0.2-2.[address] [facility] Comment on above: Performed By: #### 1 [id number], [id number], [id number] ####[facility] (DEFAULT)[address] [place] [address] Eos Abs# 0.3 x10 Normal 0.0-0.[address] [facility] Comment on above: Performed By: #### 1 [id number], [id number], [id number] ####[facility] (DEFAULT)[address] [place] [address] 07163 Eosinophils/100 WBC (Bld) 3.6 % Normal 0.9-4.[address] [facility] Comment on above: Performed By: #### 1 [id number], [id number], [id number] ####[facility] (DEFAULT)[address] [place] [address] Lymph Abs# 2.6 x10 Normal 1.3-2.[address] [facility] Comment on above: Performed By: #### 1 [id number], [id number], [id number] ####[facility] (DEFAULT)[address] [place] [address] 40295 Lymphocytes/100 WBC (Bld) 34 % Normal 14-[address] [facility] Comment on above: Performed By: #### 1 [id number], [id number], [id number] ####[facility] (DEFAULT)[address] [place] [address] Newberry Abs# 0.6 x10 Normal 0.0-0.[address] [facility] Comment on above: Performed By: #### 1 [id number], [id number], [id number] ####[facility] (DEFAULT)[address] [place] [address] 83718 Neut Abs# 3.9 x10 Normal 1.5-9.[address] [facility] Comment on above: Performed By: #### 1 [id number], [id number], [id number] ####[facility] (DEFAULT)[address] [place] [address] Neutrophils/100 WBC (Bld) 53 % Normal 44-[address] [facility] Comment on above: Performed By: #### 1 [id number], [id number], [id number] ####[facility] (DEFAULT)[address] [place] [address] Standardon 01-04-2021 eGFR Non AA >60 Invalid Interpretation Code [facility] Comment on above: Performed By: #### 1 [id number], [id number], [id number] ####[facility] (DEFAULT)[address] [place] [address] eGFR AA >60 Invalid Interpretation Code [facility] Comment on above: Result Comment: [employer] [place] Kidney disease could be indicated at eGFRs of less than 60 ml/min/1.73m2. Kidney Failure is indicated at less than 15 ml/min/1.73m2 Performed By: #### 1 [id number], [id number], [id number] ####[facility] (DEFAULT)[address] [place] [address] 18153 Anion gap [Moles/Vol] 12.0 mmol/L Normal 5.0-19.[address] [facility] Comment on above: Performed By: #### 1 [id number], [id number], [id number] ####[facility] (DEFAULT)[address] [place] [address] 83162 Calcium [Mass/Vol] 9.5 mg/dL Normal 8.9-10.3 [facility] Comment on above: Performed By: #### 1 [id number], [id number], [id number] ####[facility] (DEFAULT)[address] [place] [address] 81020 Chloride [Moles/Vol] 102 mmol/L Normal 101-[address] [facility] Comment on above: Performed By: #### 1 [id number], [id number], [id number] ####[facility] (DEFAULT)[address] [place] [address] 26664 CO2 [Moles/Vol] 27 mmol/L Normal 21-[address] [facility] Comment on above: Performed By: #### 1 [id number], [id number], [id number] ####[facility] (DEFAULT)[address] [place] [address] 93083 Creatinine [Mass/Vol] 0.77 mg/dL Normal 0.60-1.[address] [facility] Comment on above: Performed By: #### 1 [id number], [id number], [id number] ####[facility] (DEFAULT)[address] [place] [address] 52143 Glucose [Mass/Vol] 88.0 mg/dL Normal 74.0-118.0 [facility] Comment on above: Performed By: #### 1 [id number], [id number], [id number] ####[facility] (DEFAULT)[address] [place] [address] 42353 Osmolality 275 mOsm/L Invalid Interpretation Code [facility] Comment on above: Performed By: #### 1 [id number], [id number], [id number] ####[facility] (DEFAULT)[address] [place] [address] 98642 Potassium [Moles/Vol] 3.4 mmol/L Low 3.6-5.[address] [facility] Comment on above: Performed By: #### 1 [id number], [id number], [id number] ####[facility] (DEFAULT)[address] [place] [address] 75119 Sodium [Moles/Vol] 138.0 mmol/L Normal 136.0-144.0 [facility] Comment on above: Performed By: #### 1 [id number], [id number], [id number] ####[facility] (DEFAULT)[address] [place] [address] 18260 Urea nitrogen [Mass/Vol] 13 mg/dL Normal 8-[address] [facility] Comment on above: Performed By: #### 1 [id number], [id number], [id number] ####[facility] (DEFAULT)[address] [place] [address] Urea nitrogen/Creatinine [Mass ratio] 17.0 mg/mg High 4.6-16.[address] [facility] Comment on above: Performed By: #### 1 [id number], [id number], [id number] ####[facility] (DEFAULT)[address] [place] [address] CBC w/ Auto Diffon Erythrocyte distribution width (RBC) [Ratio] 13.7 % Normal 11.5-15.[address] [facility] Comment on above: Performed By: #### 1 [id number], [id number], [id number] ####[facility] (DEFAULT)[address] [place] [address] Hematocrit (Bld) [Volume fraction] 37.5 % Normal 33.7-40.[address] [facility] Comment on above: Performed By: #### 1 [id number], [id number], [id number] ####[facility] (DEFAULT)[address] [place] [address] Hemoglobin (Bld) [Mass/Vol] 11.7 g/dL Normal 11.3-15.[address] [facility] Comment on above: Performed By: #### 1 [id number], [id number], [id number] ####[facility] (DEFAULT)[address] [place] [address] 08495 Instr WBC 7.4 x10 Invalid Interpretation Code [facility] Comment on above: Performed By: #### 1 [id number], [id number], [id number] ####[facility] (DEFAULT)[address] [place] [address] 66981 Man Diff? Auto Normal [facility] Comment on above: Performed By: #### 1 [id number], [id number], [id number] ####[facility] (DEFAULT)[address] [place] [address] 29132 MCH (RBC) [Entitic mass] 26 pg Normal 24-[address] [facility] Comment on above: Performed By: #### 1 [id number], [id number], [id number] ####[facility] (DEFAULT)[address] [place] [address] 26699 MCHC (RBC) [Mass/Vol] 31 g/dL Normal 26-[address] [facility] Comment on above: Performed By: #### 1 [id number], [id number], [id number] ####[facility] (DEFAULT)[address] [place] [address] 94899 MCV (RBC) [Entitic vol] 84 fL Normal 81-[address] [facility] Comment on above: Performed By: #### 1 [id number], [id number], [id number] ####[facility] (DEFAULT)[address] [place] [address] 77499 Platelet 393 x10 Normal 138-[address] [facility] Comment on above: Performed By: #### 1 [id number], [id number], [id number] ####[facility] (DEFAULT)[address] [place] [address] 78712 Platelet mean volume (Bld) [Entitic vol] 9.7 fL Normal 6.3-10.[address] [facility] Comment on above: Performed By: #### 1 [id number], [id number], [id number] ####[facility] (DEFAULT)[address] [place] [address] 02005 RBC 4.48 x10 Normal 3.70-5.[address] [facility] Comment on above: Performed By: #### 1 [id number], [id number], [id number] ####[facility] (DEFAULT)[address] [place] [address] 70966 WBC 7.4 x10 Normal 3.5-10.[address] [facility] Comment on above: Performed By: #### 1 [id number], [id number], [id number] ####[facility] (DEFAULT)[address] [place] [address] 52081 CULTURE, URINE, ROUTINEon 08 -28-2021 CULTURE, URINE, ROUTINE SEE NOTE Abnormal [facility] Comment on above: Result Comment: CULTURE, URINE, ROUTINE Micro Number: [id number] Test Status: Final Specimen Source: Not given [...] Performed By: #### 3 95 #### [facility] [address], [address] [place] [id number] Ship Laborer: Heraclio Miller MD Vital Signs Date Time Vital Sign Value Performing Clinician Facility 04-10-2023 15:17-0500 Blood Pressure Location Jackson WILLETT [facility] 04-10-2023 15:17-0500 Diastolic blood pressure 80 mm[Hg] Jackson WILLETT [facility] 04-10-2023 15:17-0500 Heart rate 72 /min Jackson WILLETT [facility] 04-10-2023 15:17-0500 Respiratory rate 16 /min Jackson WILLETT [facility] [place] 04-10-2023 15:17-0500 Systolic blood pressure 116 mm[Hg] Jackson WILLETT [facility] [place] 04-02-2023 11:41-0500 Body mass index (BMI) [Ratio] 30.68 kg/m2 Evan Jay DO Work Phone: [facility] 04-02-2023 11:41-0500 Body weight 99.79 kg Evan Jay DO Work Phone: [facility] 04-02-2023 11:41-0500 Diastolic blood pressure 72 mm[Hg] Evan Jay DO Work Phone: [facility] 04-02-2023 11:41-0500 Systolic blood pressure 124 mm[Hg] Evan Jay DO Work Phone: [facility] 09-29-2022 14:29-0400 Body height 180.34 cm Randy G Furlong Work Phone: [facility] [employer] DO Work Phone: 09-29-2022 14:29-0400 Body mass index (BMI) [Ratio] 31.52 kg/m2 Randy G Furlong Work Phone: [facility] [employer] DO Work Phone: 09-29-2022 14:29-0400 Body surface area Derived from formula 2.22 m2 Randy G Furlong Work Phone: [facility] DO Work Phone: 09-29-2022 14:29-0400 Body weight 102.51 kg Randy G Furlong Work Phone: [facility] [employer] DO Work Phone: 09-29-2022 14:29-0400 Diastolic blood pressure 88 mm[Hg] Randy G Furlong Work Phone: [facility] DO Work Phone: 09-29-2022 14:29-0400 Heart rate 76 /min Randy G Furlong Work Phone: [facility] DO Work Phone: 09-29-2022 14:29-0400 Systolic blood pressure 138 mm[Hg] Randy G Furlong Work Phone: [facility] DO Work Phone: 09-12-2022 14:56-0400 Body height 180.34 cm Randy G Furlong Work Phone: [facility] DO Work Phone: 09-12-2022 14:56-0400 Body mass index (BMI) [Ratio] 30.96 kg/m2 Randy G Furlong Work Phone: [facility] DO Work Phone: 09-12-2022 14:56-0400 Body surface area Derived from formula 2.2 m2 Randy G Furlong Work Phone: [facility] DO Work Phone: 09-12-2022 14:56-0400 Body weight 100.7 kg Randy G Furlong Work Phone: [facility] DO Work Phone: 09-12-2022 14:56-0400 Diastolic blood pressure 88 mm[Hg] Randy G Furlong Work Phone: [facility] DO Work Phone: 09-12-2022 14:56-0400 Heart rate 78 /min Randy G Furlong Work Phone: [facility] [employer] DO Work Phone: 09-12-2022 14:56-0400 Systolic blood pressure 132 mm[Hg] Randy Jaramillo Furlong Work Phone: [facility] [employer] DO Work Phone: 08-22-2022 09:47-0400 Diastolic blood pressure 100 mm[Hg] Randy G Furlong Work Phone: [facility] [employer] DO Work Phone: 08-22-2022 09:47-0400 Systolic blood pressure 142 mm[Hg] Randy G Furlong Work Phone: [facility] [employer] DO Work Phone: 08-22-2022 09:46-0400 Body height 180.34 cm Randy Rafi Furlong Work Phone: [facility] [employer] DO Work Phone: 08-22-2022 09:46-0400 Body mass index (BMI) [Ratio] 30.68 kg/m2 Randy G Furlong Work Phone: [facility] [employer] DO Work Phone: 08-22-2022 09:46-0400 Body surface area Derived from formula 2.2 m2 Randy G Furlong Work Phone: [facility] [employer] DO Work Phone: 08-22-2022 09:46-0400 Body weight 99.79 kg Randy G Furlong Work Phone: [facility] [employer] DO Work Phone: 08-22-2022 09:46-0400 Diastolic blood pressure 102 mm[Hg] Randy G Furlong Work Phone: [facility] DO Work Phone: 08-22-2022 09:46-0400 Heart rate 74 /min Randy G Furlong Work Phone: [facility] DO Work Phone: 08-22-2022 09:46-0400 Systolic blood pressure 148 mm[Hg] Randy G Furlong Work Phone: [facility] DO Work Phone: 07-21-2022 08:15-0400 Diastolic blood pressure 88 mm[Hg] Randy G Furlong Work Phone: [facility] DO Work Phone: 07-21-2022 08:15-0400 Systolic blood pressure 122 mm[Hg] Randy G Furlong Work Phone: [facility] DO Work Phone: 07-21-2022 08:14-0400 Body height 180.34 cm Randy G Furlong Work Phone: [facility] [employer] DO Work Phone: 07-21-2022 08:14-0400 Body mass index (BMI) [Ratio] 30.82 kg/m2 Randy G Furlong Work Phone: [facility] DO Work Phone: 07-21-2022 08:14-0400 Body surface area Derived from formula 2.2 m2 Randy G Furlong Work Phone: [facility] DO Work Phone: 07-21-2022 08:14-0400 Body weight 100.25 kg Randy G Furlong Work Phone: [facility] DO Work Phone: 07-21-2022 08:14-0400 Diastolic blood pressure 86 mm[Hg] Randy Jaramillo Furlong Work Phone: [facility] DO Work Phone: 07-21-2022 08:14-0400 Heart rate 59 /min Randy Jaramillo Furlong Work Phone: [facility] DO Work Phone: 07-21-2022 08:14-0400 Systolic blood pressure 132 mm[Hg] Randy Normanlong Work Phone: [facility] DO Work Phone: 07-14-2022 14:02-0400 Body temperature 99.32 [degF] Reid Bauer [facility] 07-14-2022 14:02-0400 Diastolic blood pressure 86 mm[Hg] Reid Coatspsey [facility] 07-14-2022 14:02-0400 Heart rate 76 /min Reid Bauer [facility] 07-14-2022 14:02-0400 SaO2% (BldA) [Mass fraction] 98 % Reid Bauer [facility] 07-14-2022 14:02-0400 Systolic blood pressure 120 mm[Hg] Reid Bauer [facility] 11-11-2021 19:25-0400 Body height 180.34 cm Jesusita Gee Other [facility] [employer] Other 11-11-2021 19:25-0400 Body mass index (BMI) [Ratio] 28.59 kg/m2 Jesusita Gee Other [employer] [facility] [employer] Other 11-11-2021 19:25-0400 Body temperature 98.1 [degF] Jesusita Gee Other [employer] Other 11-11-2021 19:25-0400 Body weight 92.99 kg Jesusita Gee Other [employer] Other 11-11-2021 19:25-0400 Respiratory rate 18 /min Jesusita Gee Other [employer] Other 11-11-2021 19:25-0400 SaO2% (BldA) [Mass fraction] 96 % Jesusita Gee Other [employer] Other Encounters Encounter Date Encounter Type Care Provider Facility Start: 04-14-2023 End: 04-14-2023 ambulatory [facility] Start: 04-10-2023 End: 04-11-2023 ambulatory Jackson WILLETT Facility: [facility] Start: 04-10-2023 End: 04-10-2023 Patient encounter procedure Jackson WILLETT [facility] [place] Start: 04-10-2023 End: 04-11-2023 ambulatory CHRISTY HE [facility] Start: 04-10-2023 ambulatory EMELIA Thomas JACQUES [facility] Start: 04-06-2023 End: 04-07-2023 ambulatory Chantal Bear Facility:[facility] Start: 04-06-2023 End: 04-06-2023 Patient encounter procedure Chantal Bear [facility] Start: 04-02-2023 End: 04-02-2023 ambulatory EVAN THOMPSON Not Available Start: 04-02-2023 End: 04-02-2023 Office outpatient visit 15 minutes Evan Jay DO Work Phone: [facility] Comment on above: Mammogram abnormal; Invasive ductal carcinoma of breast, right ([facility]) Start: 03-26-2023 End: 03-26-2023 ambulatory Emelia Collier Facility:[facility] Start: 03-26-2023 End: 03-26-2023 ambulatory DO Randy Furlong Work Phone: [facility] Work Phone: Start: 03-26-2023 End: 03-26-2023 Departed Referred DO Randy Furlong Work Phone: [facility] Start: 03-20-2023 End: 03-21-2023 ambulatory BRITTANI MICHAEL Facility:[facility] Start: 03-20-2023 End: 03-20-2023 Patient encounter procedure BRITTANI Driscoll [facility]rey MICHA[facility] Start: 10-15-2022 Chart Update Randy Cantu ng Work Phone: [facility] DO Work Phone: Start: 10-14-2022 ambulatory BRITTANI MICHAEL Facili ty:[id number] Start: 09-29-2022 Patient encounter procedure Randy Calle Work Phone: [facility] DO Work Phone: Start: 09-29-2022 ambulatory Ms. Brittani Michael Facility: Start: 09-12-[address] Christopher Harrison II Facility: Start: 09-12-2022 Office outpatient visit 5 minutes Randy Cantung Work Phone: [facility] DO Work Phone: Start: 08-22-[address] Christopher Harrison II Facility: Start: 08-22-2022 Office outpatient visit 5 minutes Randy Normanalannaterry Work Phone: [facility] DO Work Phone: Start: 08-18-2022 Chart Update Randy Cantu ng Work Phone: [facility] DO Work Phone: Start: 08-15-2022 End: 08-16-2022 ambulatory Christopher Harrison Facility:[facility] Start: 08-15-2022 End: 08-15-2022 Patient encounter procedure [facility] Start: 07-21-[address] [id number] Start: 07-14-2022 End: 07-15-2022 ambulatory Reid Bauer Facility:[facility] Start: 07-14-2022 End: 07-14-2022 Patient encounter procedure Reid Bauer [facility] Start: 12-27-2021 End: 12-27-[address] DAYANA BASHIR Facility: Start: 12-13-2021 End: 12-14-[address] KAYE JARQUIN Facility: Start: 11-22-2021 End: 11-22-2021 ambulatory Hua Kraus [place] Facility:[facility] Start: 11-11-2021 End: 11-11-2021 ambulatory Jesusita Gee Other [facility] [employer] Other Start: 11-11-2021 Office outpatient visit 15 minutes Jesusita Gee [facility] Start: 08-26-2021 End: 08-28-2021 ambulatory Hua Kraus [place] Facility:[facility] Start: 08-22-2021 End: 08-22-2021 ambulatory RANDY CALLE Facility:[facility] Start: 08-13-2021 End: 08-13-2021 ambulatory RANDY CALLE Facility:[facility] Start: 01-21-2021 End: 01-21-2021 ambulatory RANDY CALLE Facility:[facility] Start: 01-04-2021 End: 01-05-2021 ambulatory RANDY CALLE Facility: [facility] Procedures Date Procedure Procedure Detail Performing Clinician Start: 12-27-2021 Mammography Evan adrian DO Work Phone: Start: 03-02-2005 Hysterectomy Reid mcfarland Abdominal hysterectomy Mour Valeriooulghassani Biopsy of breast Jackson RODRIGUEZ L Chondrectomy of semilunar cartilage of knee Moghazala [employer] Core needle biopsy o f breast using ultrasound guidance MojoniDigitalTownsharad VaxInnatekemCloud[employer] Technologiesjenna Excisional biopsy of breast Randy Calle Work Phone: Hysterectomy Randy jaramillo Work Phone: Lipoma of back (disorder) Reid Bauer Repair of anterior cruciate ligament of knee joint Mourjanelle Traboulssi Tonsillectomy MourDigitalTownsharad Watson lssi Transurethral cystoscopy Haydee shauna [employer]en NEGATED: Highlighted row has not occurred! Total colonoscopy Randy Calle Work Phone: Plan of Treatment Date Care Activity Detail Author Start: 06-06-2024 [facility] Start: 06-01-2023 End: 06-01-2023 Patient encounter procedure 06/01/2023 1:30 PM EDT Office Visit [facility] [address] [place] [address] Evan Thompson DO [address] [place] [address] [facility] Start: 04-08-2023 FUV, Provider: Christopher Harrison, Status: Pen, Time: 2:50 PM FUV, Provider: Christopher Harrison, Status: Pen, Time: 2:50 PM [facility] DO Work Phone: Start: 12-27-2022 Screening for malign ant neoplasm of breast Mammogram [facility] Start: 10-31-2022 Influenza vaccination Influenza Vacc ine (#1) [facility] Start: 09-29-2022 FUV, Provider: Brittani Avalos, Status: Pen, Time: 2:30 PM FUV, Provider: Brittani Avalos, Status: Pen, Time: 2:30 PM [facility] DO Work Phone: Start: 09-18-2022 FUV, Provider: Christopher Harrison, Status: Pen, Time: 9:10 AM FUV, Provider: Christopher Harrison, Status: Pen, Time: 9:10 AM [facility] DO Work Phone: Start: 09-12-2022 BPLM, Provider: Galo MURGUIA HOME SERVICE TECHNICIAN 1,[id number], Status: Pen, Time: 9:00 AM BPLM, Provider: ASHLEIGH MURGUIA HOME SERVICE TECHNICIAN 1,[id number], Status: Pen, Time: 9:00 AM [facility] DO Work Phone: Start: 08-22-2022 BPLM, Provider: Galo MURGUIA HOME SERVICE TECHNICIAN 1,[id number], Status: Pen, Time: 9:00 AM BPCHECK, Provider: ASHLEIGH MURGUIA HOME SERVICE TECHNICIAN 1,[id number], Status: Pen, Time: 9:00 AM [facility] DO Work Phone: Start: 2000 Screening for malign ant neoplasm of cervix [facility] Start: 10-11-1991 Screening for malign ant neoplasm of cervix Pap Smear [facility] Start: 1970 Screening for malign ant neoplasm of colon [facility] Immunizations Immunization Date Immunization Notes Care Provider Brandi box 12-06-2020 SARS-CoV-2 (COVID-19 ) mRNA BNT-162b2 vax Reid Bauer [facility] Comment on above: Result Comment: 2022: TPV50 11-15-2020 SARS-CoV-2 (COVID-19 ) mRNA BNT-162b2 vax Reid Bauer [facility] Comment on above: Result Comment: 2022: TPV50 11-20-2019 influenza virus vaccine, unspecified formulation Reid Coatspsey [facility] 11-14-2019 influenza virus vaccine, unspecified formulation Reid Coatspsey [facility] 11-14-2019 influenza, seasonal, injectable Randy G Furlong Work Phone: [facility] Amadix DO Work Phone: 12-13-2018 influenza virus vaccine, unspecified formulation Reid Bauer [facility] 12-13-2018 influenza, seasonal, injectable [facility] Work Phone: 12-10-2017 influenza virus vaccine, unspecified formulation Reid Bauer [facility] 12-10-2017 influenza, injectable, quadrivalent, contains preservative Randy G Fur[facility] Work Phone: 07-07-2017 tetanus toxoid, reduced diphtheria toxoid, and acellular pertussis vaccine, adsorbed Reid Bauer [facility] 01-19-2017 influenza virus vaccine, unspecified formulation Reid Bauer [facility] 01-19-2017 influenza, injectable, quadrivalent, contains preservative Randy G Furlong Work Phone: [place] [address] DO Work Phone: 01-07-2016 influenza virus vaccine, unspecified formulation Reid Bauer [facility] 01-07-2016 influenza, injectable, quadrivalent, contains preservative Randy G Furlong Work Phone: [place] [address] DO Work Phone: 12-01-2015 influenza virus vaccine, unspecified formulation Randy G Furlong Work Phone: [place] [address] DO Work Phone: 12-01-2015 influenza, unspecified formulation Reid Bauer [facility] 12-27-2014 influenza virus vaccine, unspecified formulation Reid Bauer [facility] 12-27-2014 influenza, injectable, quadrivalent, contains preservative Randy G Furlong Work Phone: [place] [address] DO Work Phone: 01-05-2014 influenza virus vaccine, unspecified formulation Reid Coatspsey [facility] 01-05-2014 influenza, injectable, quadrivalent, contains preservative Randy G Furlong Work Phone: [place] [address] DO Work Phone: 12-29-2012 influenza virus vaccine, unspecified formulation Reid Juancarlos [facility] 12-29-2012 influenza, seasonal, injectable Randy Calle Work Phone: [facility] 250 DO Work Phone: 01-17-2009 novel [id number], preservative-free, injectable Randy Calle [facility] Work Phone: NEGATED: Highlighted row has not occurred!04-10-2023 influenza virus vaccine, unspecified formulation Jackson WILLETT [facility] Payers Date Payer Category Payer Self-pay [id number] 2023 Medicaid [id number] 2023 Medicaid MEDICAID [facility] [id number] 2023-Present [phone] [address] [place] [address] Medicaid [id number] 2016 Unknown [id number] 1970 Unknown [id number] 2.16.840.1.719950.3.579.2.7 18 1970 Unknown [id number] 2.16.840.1.290982.3.579.2.7 18 1970 Unknown [id number] 2.16.840.1.313982.3.579.2.7 18 1970 Unknown [id number] 2.16.840.1.993168.3.579.2.7 18 1970 Unknown [id number] 2.16.840.1.739868.3.579.2.7 18 1970 Unknown [id number] 2.16.840.1.179884.3.579.2.7 18 1970 Unknown [id number] 2.16.840.1.953951.3.579.2.7 18 1970 Unknown [id number] 2.16.840.1.747730.3.579.2.5 93 1970 Unknown [id number] 2.16.840.1.708141.3.579.2.5 93 1970 Unknown [id number] 2.16.840.1.906136.3.579.2.3 56 1970 Unknown [id number] 2.16.840.1.338693.3.579.2.3 56 1970 Unknown [id number] 2.16.840.1.431962.3.579.2.3 56 1970 Unknown [id number] 2.16.840.1.114362.3.579.2.3 56 1970 Unknown [id number] 2.16.840.1.170882.3.579.2.1 068 1970 Unknown [id number] 2.16.840.1.089372.3.579.2.1 259 1970 Unknown [id number] 2.16.840.1.891563.3.579.2.1 286 1970 Unknown [id number] 2.16.840.1.051250.3.579.2.1 286 1970 Unknown [id number] 2.16.840.1.452456.3.579.2.1 286 1970 Unknown [id number] 2.16.840.1.702524.3.579.2.1 286 1970 Unknown [id number] 2.16.840.1.744333.3.579.2.1 286 1970 Unknown [id number] 2.16.840.1.013427.3.579.2.1 286 1970 Unknown [id number] 2.16.840.1.562073.3.579.2.1 286 1970 Unknown [id number] 2.16.840.1.191089.3.579.2.1 244 1970 Unknown [id number] 2.16.840.1.677407.3.579.2.1 286 1970 Unknown [id number] 2.16.840.1.822363.3.579.2.7 27 1970 Unknown [id number] 2.16.840.1.382093.3.579.2.7 27 1970 Unknown [id number] 2.16.840.1.096776.3.579.2.7 27 1970 Unknown [id number] 2.16.840.1.584005.3.579.2.7 27 1970 Unknown [id number] 2.16.840.1.162046.3.579.2.7 27 1959 Private Health Insurance [id number] 2.16.840.1.752642.19 Unknown Unknown [id number] Unknown [id number] 2.16.840.1.269891.3.579.2.5 31 Social History Date Type Detail Facility Unknown if ever smoked [facility] Start: 01-04-2023 Sex Assigned At [facility] Start: 07-14-2022 End: 04-10-2023 Tobacco smoking status Never smoked tobacco (finding) [facility] Tobacco smoking status Never [facility] Start: 01-04-2023 Social alcohol use Social alcohol us e -[facility] 250 DO Work Phone: Start: 1970 Sex Assigned At Female F [facility] Start: 04-02-2023 Alcohol intake Lifetime non-d mayra (finding) [facility] Start: 01-04-2023 Alcohol Comment Caffeine intak e: 1-2 cups per day [facility] Start: 1970 Sex Assigned At Not on file [facility] Functional Status Date Assessment Result Facility 04-10-2023 Functional Status N/A [facility] 07-14-2022 Functional Status N/A [facility] Clinical Notes 01-18-2021 to 04-12-2023 Catie Walker, ODD PIECE CHECKER - 04/02/2023 11:30 AM EST Note Date [...] quadrant of right female breast) plan left jgmsbs-s-noiq insertion under anesthesia, informed consent obtained. Ancef [...] virus vaccine, inactivate (more content not included)... [facility] Comment on above: Result Comment: Elec tronically Signed By: BRENNON JAMESON, Jackson Mays\Date and Time Signed: 04/12/23 19:14 EST 04-02-2023 History of Present illness Narrative Reason for Appointment: Patient ID: Yasmin Eason Widman is a 52 y.o. female who presents for abnormal test results (Discuss the results of her abnormal mammogram results done @ [facility]) Patient presents today for Consult appointment. [...] nursing note reviewed. Exam conducted with a wrist hemmer present. Vitals: Estimated body mass index is [...] diagnostic right breast mammogram done at [facility] on 03/20/23. Results were highly suggestive of malignancy and radiology recommended that patient obtain an ultrasound guided breast biopsy. Patient had ultrasound guided right breast biopsy obtained at [facility] on 03/26/23, biopsy was sent to pathology at [facility]. Reviewed results with patient and discussed [...] and if patient does not hear from gas specialist by the time she receives letter to contact Specialist to schedule. Advised patient on VM to call office with any questions. --Catie Johnson LPN documented in this encounter [facility] 07-14-2022 Hospital Discharge instructions Patient Education 07/14/2022 [...] numbers. This can be done either in [place] ([place] or metric measurements. Note that charts and online BMI calculators are available to help you find your BMI quickly and easily without having to do these calculations yourself. To calculate your BMI in [place] ([place] measurements: 1.Measure your weight in pounds [...] Centers for Disease Control and Prevention: www.cdc.gov [place] Heart Association: www.heart.org National Heart, Lung, and Blood [place]: www.nhlbi.nih.gov Summary Body mass index (BMI) is a number that is calculated from a person's weight and height. BMI may help estimate how much of a person's weight is composed of fat. BMI can help identify those who may be at higher risk for certain medical problems. BMI can be measured using Tongan measurements or metric measurements. BMI charts are used to identify whether you are underweight, normal weight, overweight, or obese. This information is not intended to replace advice given to you by your health care provider. Make sure you discuss any questions you have with your health care provider. Document Revised: 11/09/2019 Document Reviewed: 09/16/2019 [employer] Patient Education 2022 [employer]. 07/14/2022 14:20:38 Upper Respiratory Infection, Adult Upper [...] medicines to help relieve symptoms, such as: Rcml-ame-jceplrp cold medicines. Cough suppressants. Coughing is a [...] and other clear broths. General instructions Take ojru-rdx-brgvdox and prescription medicines only as told by [...] and water are not available, use hand laboratory tech. Avoid touching your mouth, face, eyes, or [...] provider. Document Revised: 09/18/2021 Document Reviewed: 09/18/2021 [employer] Patient Education 2022 [employer]. Follow Up Care 07/14/2022 13:35:56 With:BRENNON JAMESON, BOBBY Sifuentes Address:Unknown When: Unknown [facility] 11-12-2021 History general N arrative - Reported Type Medical History heart dysrythmia Medical History Night sweats Medical History Insomnia, unspecified type Medical History hypertension Surgical History hysterectomy dec 2003 Surgical History acl reconstruction right knee n ov 2004 Surgical History leg dec 2014 Hospitalization History see above [facility] 09-12-2022 Evaluation note* Encounter Date Diagnosis [...] weeks for the cough to go away [facility] 06-28-2022 Note [id number]#1.00[facility]06-28-2022 [id number]#1.00[facility] 08-26-2021 [facility] SURGERY Clinical Discharge Summary PERSON INFORMATION Name YASMIN JONES Age 50 Years 1970 Sex FEMALE Language Tongan PCP RANDY CLALE Marital Status Med Service Ambulatory Surgery Acct# Arrival 08/26/2021 11:01:00 Visit Reason SURGERY- LEFT KNEE SCOPE Acuity LOS 003 04:51 Address: [address] [facility] [address] Comment: PROVIDER INFORMATION VITALS INFORMATION Vital Sign Triage Latest Temp Oral Temp Temporal Temp Intravascular Temp Axillary Temp Rectal 02 Sat 100 % 97 % Respiratory Rate Peripheral Pulse Rate Apical Heart Rate Blood Pressure / 90 mmHg / 103 mmHg Comment: MEDICAL INFORMATION Allergy Info: Adhesive Bandage; Demerol Prescriptions Given: acetaminophen-hydrocodone (!-Nemacolin 5 mg-325 mg oral tablet) 1 tab(s) [...] Oral every day. potassium chloride (Potassium Chloride (Lpd-Lzrh-Hif 10) 10 mEq oral tablet, extended release) 1 tab(s) Oral every day. traZODone (traZODone 50 mg oral tablet) 1 tab(s) Oral once a day (at bedtime). Medication List: Medications to Continue That Have Not Changed Other Medications acetaminophen-hydrocodone (!-Nemacolin 5 mg-325 mg oral tablet) 1 tab(s) Oral Every 6 hours as needed as needed for pain. carvedilol (carvedilol 12.5 mg oral tablet) 1 tab(s) Oral 2 times a day. cyclobenzaprine (cyclobenzaprine 10 mg oral tablet) 1 tab(s) Oral At bedtime as needed for spasm. hydroCHLOROthiazide (hydroCHLOROthiazide 25 mg oral tablet) 1 tab(s) Oral every day. potassium chloride (Potassium Chloride (Dzu-Dzlj-Nvi 10) 10 mEq oral tablet, extended release) 1 tab(s) Oral every day. traZODone (traZODone 50 mg oral tablet) 1 tab(s) Oral once a day (at bedtime). Medications to Continue That Have Not Changed Other Medications acetaminophen-hydrocodone (!-Nemacolin 5 mg-325 mg oral tablet) 1 tab(s) Oral Every 6 hours as needed as needed for pain. carvedilol (carvedilol 12.5 mg oral tablet) 1 tab(s) Oral 2 times a day. cyclobenzaprine (cyclobenzaprine 10 mg oral tablet) 1 tab(s) Oral At bedtime as needed for spasm. hydroCHLOROthiazide (hydroCHLOROthiazide 25 mg oral tablet) 1 tab(s) Oral every day. potassium chloride (Potassium Chloride (Gpk-Sxop-Gee 10) 10 mEq oral tablet, extended release) 1 tab(s) Oral every day. traZODone (traZODone 50 mg oral tablet) 1 tab(s) Oral once a day (at bedtime). Medications to Continue That Have Not Changed Other Medications acetaminophen-hydrocodone (!-Nemacolin 5 mg-325 mg oral tablet) 1 tab(s) Oral Every 6 hours as needed as needed for pain. carvedilol (carvedilol 12.5 mg oral tablet) 1 tab(s) Oral 2 times a day. cyclobenzaprine (cyclobenzaprine 10 mg oral tablet) 1 tab(s) Oral At bedtime as needed for spasm. hydroCHLOROthiazide (hydroCHLOROthiazide 25 mg oral tablet) 1 tab(s) Oral every day. potassium chloride (Potassium Chloride (Zut-Ombl-Zkq 10) 10 mEq oral tablet, extended release) [...] INFORMATION PATIENT EDUCATION INFORMATION Instructions: [facility] Follow up: DIAGNOSIS Internal derangement of left knee Comment: PHYS DOC [facility]06-16-2022 [facility] SURGERY Clinical Discharge Summary PERSON INFORMATION Name YASMIN JONES Age 50 Years 1970 Sex FEMALE Language Tongan PCP RANDY CALLE Marital Status [facility] Ambulatory Surgery Acct# Arrival Visit Reason SURGERY - LEFT KNEE SCOPE Acuity LOS 010 03:19 Address: [address] [facility] [address] Comment: PROVIDER INFORMATION VITALS INFORMATION Vital Sign [...] Oral every day. potassium chloride (Potassium Chloride (Rtw-Vilf-Zdd 10) 10 mEq oral tablet, extended release) 1 tab(s) Oral every day. traZODone (traZODone 50 mg oral tablet) 1 tab(s) Oral once a day (at bedtime). Medication List: Medications That Were Updated - Follow Below Instructions Other Medications Updated: potassium chloride (Potassium Chloride (Fdu-Ochl-Sym 10) 10 mEq oral tablet, extended release) [...] Other Medications Updated: potassium chloride (Potassium Chloride (Ndn-Egcy-Jiw 10) 10 mEq oral tablet, extended release) [...] Other Medications Updated: potassium chloride (Potassium Chloride (Hkn-Hgjm-Gmf 10) 10 mEq oral tablet, extended release) [...] Follow up: With: Address: When: MYESHA ALISSON [address] [place], [place] [address] Business (1) 09/03/2021 9:15 AM With: Address: When: RANDY NORMANMAGALYS [address] [place], [place] [address]her[place] [id number] Business (1) Type Location Start [facility] Lab Collection ([facility]) LAB 08/21/2021 4:00 PM 08/21/2021 4:10 PM Confirmed Surgery ([facility]) [facility] Main OR 08/26/2021 1:00 PM 08/26/2021 1:30 PM Confirmed DIAGNOSIS Comment: AGUSTIN [facility]11-24-2021 Note [id number] [id number]#[facility] SURGERY Clinical Discharge Summary PERSON INFORMATION Name YASMIN JONES Age 50 Years 1970 Sex FEMALE Language Tongan PCP RANDY CALLE Marital Status Med Service Ambulatory Surgery Acct# Arrival 01/21/2021 06:05:01 Visit Reason SURGERY - RIGHT KNEE ARTHROSCOPY Acuity LOS 032 23:00 Address: [address] [facility] [address] Comment: PROVIDER INFORMATION VITALS INFORMATION Vital Sign [...] INFORMATION Instructions: Reny- Post Op [facility]nee [facility] Follow up: With: Address: When: MYESHA VINSON [address] [place] [address], [address] [place] [address] Business (1) 01/30/2021 11:00 AM With: Address: When: [place] [address] Business (1) DIAGNOSIS Internal derangement of right knee; Tear of meniscus of right knee Comment: AGUSTIN ROQUE [facility]11-19-2021 NoteSpoke to pt on phone regarding upcoming procedure. pt aware to be here at 6am, NPO after midnight, and need for ride after procedure. pt verbalizes understanding. [Electronically Signed on: 01/18/2021 11:03 EST] Jen Khoury RN [Verified on: 01/18/2021 11:03 EST] Jen Khoury [facility] + [facility] note No data available for this section [facility] Evaluation + Plan note Future Appointments Appointment Date:04/10/2023 03:20:00 PM Scheduled Provider:Jackson WILLETT MD Location:[facility] App[facility] Type[facility] noteNo assessment information available [facility] Work Phone: Evaluation note* Diagnosis Mammogram abnormal [...] medication regimen. She denies medication side effects. [facility] 250 DO Work Phone: Hospital Discharge instructions No data available for this section [facility] note No data available for this section [facility] Summary Purpose Family History [...] per Dr. Christopher Harrison MD / R Singler RN increase chlorthalidone to 50mg daily and [...] per Dr. Christopher Harrison MD / R Singler RN increase chlorthalidone to 50mg daily and [...] pressure f/u : 'doing fine' * YASMIN OJNES is being seen for a 3 month follow-up of hypertension. Additional Source Comments INFORMATION SOURCE (unrecogn ized section and content) DATE CREATED AUTHOR 07/28/2021 [facility] d[facility] Specialist DATE CREATED AUTHOR AUTHOR'S ORGANIZ ATION 09/22/2021 [facility] DATE CREATED AUTHOR AUTHOR'S ORGANIZ ATION 12/01/2021 [facility] DATE CREATED AUTHOR AUTHOR'S ORGANIZ ATION 01/04/2022 [facility] DATE CREATED AUTHOR AUTHOR'S ORGANIZ ATION 09/30/2022 [facility] DATE CREATED AUTHOR AUTHOR'S ORGANIZ ATION 10/01/2022 [facility] DATE CREATED AUTHOR AUTHOR'S ORGANIZ ATION 10/17/2022 [facility] DATE CREATED AUTHOR AUTHOR'S ORGANIZ ATION 04/04/2023 [facility] dical Specialists EPIC DATE CREATED AUTHOR AUTHOR'S ORGANIZ ATION 04/10/2023 [facility] DATE CREATED AUTHOR AUTHOR'S ORGANIZ ATION 04/13/2023 [facility] DATE CREATED AUTHOR AUTHOR'S ORGANIZ ATION 04/16/2023 [facility] DATE CREATED AUTHOR AUTHOR'S ORGANIZ ATION 04/21/2023 [facility] DATE CREATED AUTHOR AUTHOR'S ORGANIZ ATION 05/04/2023 [facility] REASON FOR VISIT (unrecogniz ed section and content) Reason Comments abnormal test results Discuss the result s of her abnormal mammogram results done @ [facility] Patient Care team informatio n (unrecognized section and content) Team Status: Active Member Role Status Dates Randy Calle DO Primary Care Provider Active Team Status: Inactive Member Role Status Dates Randy Calle DO Primary Care Provider Active Start: March 26, 2023 End: March 26, 2023 GUY Khan TIP PUNCHER-C Attending Provider Active Start: March 26, 2023 End: March 26, 2023 Chimney Mechanic Relationship Specialty Start Date End Date Randy Calle MD [address] [facility] [place] [address] PCP - General Family Medicine 04/02/23 Goals [...] BE BASED ON THE PRIMARY CLINICAL RECORDS. [facility]. provides no warranty or guarantee of the accuracy or completeness of information in this document.
--- NOTE | 2023-05-08 09:32 | P.GSHP_ITS ---
History of Present Illness History of Present Illness Chief complaint: breast cancer Narrative: Patient presents for preadmission testing. The patient was diagnosed with breast cancer this year and has been undergoing chemotherapy and is scheduled for a port placement. Review of Systems ROS Narrative REVIEW OF SYSTEMS: Negative except as stated in HPI, ten or more systems reviewed. Constitutional: No fever , chills, weakness ENT: No sore throat or epistaxis Cardiovascular: No edema, chest pain, palpitations, or activity intolerance Respiratory: No shortness of breath, cough, or wheezing Musculoskeletal: No joint pain or swelling Gastrointestinal: No abdominal pain, constipation, diarrhea, or vomiting Genitourinary: No dysuria or hematuria Neurological: No numbness, tingling, weakness, or headache Psychiatric: No mood changes PFSH PFS Medical History (Updated 05/08/23 @ 09:29 by Lenore Coyle NP) Anemia ?D64.9 - Anemia, unspecified (ICD-10) COVID-19 ?U07.1 - COVID-19 (ICD-10) Exercise-induced asthma ?J45.990 - Exercise induced bronchospasm (ICD-10) PICC (peripherally inserted central catheter) in place (04/20/23) ?Z45.2 - Encounter for adjustment and management of vascular access device (ICD-10) Postoperative nausea and vomiting ?R11.2 - Nausea with vomiting, unspecified (ICD-10) ?Z98.890 - Other specified postprocedural states (ICD-10) Invasive ductal carcinoma of breast ?C50.919 - Malignant neoplasm of unspecified site of unspecified female breast (ICD-10) Arthritis ?M19.90 - Unspecified osteoarthritis, unspecified site (ICD-10) HTN (hypertension) ?I10 - Essential (primary) hypertension (ICD-10) Migraines ?G43.909 - Migraine, unspecified, not intractable, without status migrainosus (ICD-10) Surgical History (Updated 05/08/23 @ 09:12 by Lenore Coyle NP) History of tonsillectomy ?Z90.89 - Acquired absence of other organs (ICD-10) H/O ultrasound guided needle biopsy ?Z98.890 - Other specified postprocedural states (ICD-10) S/P breast lumpectomy ?Z98.890 - Other specified postprocedural states (ICD-10) H/O exploratory laparotomy ?Z98.890 - Other specified postprocedural states (ICD-10) H/O: hysterectomy ?Z90.710 - Acquired absence of both cervix and uterus (ICD-10) H/O arthroscopy of left knee ?Z98.890 - Other specified postprocedural states (ICD-10) S/P right knee arthroscopy ?Z98.890 - Other specified postprocedural states (ICD-10) H/O excision of mass ?Z98.890 - Other specified postprocedural states (ICD-10) Family History (Updated 05/08/23 @ 09:24 by Lenore Coyle NP) Other Family history not known due to adoption Social History (Updated 05/08/23 @ 09:07 by Lenore Coyle NP) Within the past year, how often did you have a drink containing alcohol: monthly or less Smoking status: Never smoker Non-prescribed substance use: denies use 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 Highest level of school completed/degree received: Associate degree: academic program Meds Home Medications and Allergies Home Medications Medication Instructions Recorded Confirmed Type chlorthalidone 25 mg tablet 50 mg PO DAILY 03/23/23 05/08/23 History cyclobenzaprine 10 mg tablet 10 mg PO BEDTIME 03/23/23 05/08/23 History ibuprofen 600 mg tablet 600 mg PO DAILY 03/23/23 05/08/23 History lisinopril 20 mg tablet 20 mg PO DAILY 03/23/23 05/08/23 History metoprolol tartrate 100 mg tablet 100 mg PO DAILY 03/23/23 05/08/23 History trazodone 50 mg tablet 50 mg PO DAILY 03/23/23 05/08/23 History spironolactone 25 mg tablet 25 mg PO DAILY 05/08/23 05/08/23 History Allergies Allergy/AdvReac Type Severity Reaction Status Date / Time adhesive tape Allergy Rash Verified 03/26/23 09:32 meperidine [From Demerol] Allergy Swelling Verified 04/02/23 16:20 of Lip/Tongue/Throat Exam Narrative Exam Narrative: Constitutional: Awake, alert, comfortable, well-appearing, nontoxic, int eractive, vital signs as charted Head: Normocephalic, atraumatic Neck: Supple, normal appearance, normal range of motion, no meningeal signs, no lymphadenopathy Respiratory: No respiratory distress, breath sounds clear Cardiovascular: Regular rate and rhythm, strong and regular heart tones Abdomen: Nontender, normal bowel sounds, soft, no CVA tenderness Musculoskeletal: Normal gait, no swelling or edema, PICC line intact right upper extremity Skin: No rashes or induration, no lesions, only visible skin inspected Neuro: No neurological deficits, normal sensation Psychiatric: Oriented ?3, normal affect Assessment and Plan Assessment and Plan (1) Invasive ductal carcinoma of breast: Plan Ynqxvc-v-Wsqx insertion under anesthesia scheduled with Dr. Betancourt 05/13/2023.
== END 2023-05-08 08:53 | disposition home or self-care (01) ==
LOC: PST 08:54
PROVIDERS: PCP Nurse Practitioner Family; Visit Provider Surgery
DX: Z01.810 Encounter for preprocedural cardiovascular examination (principal); Z01.818 Encounter for other preprocedural examination; C50.919 Malignant neoplasm of unspecified site of unspecified female breast
CPT/HCPCS: 93005; G0463

== ENCOUNTER 2023-05-13 09:17 | Day surgery (SDC) | payer OTHER, SELFPAY ==
[2023-04-20 13:40] VITALS: BP 108/65; PULSE 83; RESP 16; TEMP 36.5; O2SAT 98
--- NOTE | 2023-04-20 13:43 | PC.NURSE ---
1140: Pt. to [facility] amb. for scheduled PICC line placement. VSS. Denies c/o or questions regarding procedure. Awaits rep. from [employer]. 1200: [employer] nurse arrives. Consent form obtained. PICC line insertion initiated. 1235: PICC line insertion to right upper arm completed without difficulty. Site wrapped with ATTILA bandage for protection due to pt. going to work post procedure. Pt. tolerated all without c/o. 1240: Pt. d/c'd amb. to work.
--- NOTE | 2023-04-20 16:37 | PC.NURSE ---
1545: Pt. returns to [facility] amb. for chemo teaching. Patient educated in depth on chemotherapy regimen and medications. Consent forms reviewed and questions addressed, consent obtained. Given education packet on management of constipation, diarrhea, mouth sores and blood count monitoring. Pt. given opportunity to discuss concerns and fears. Reassurance and comfort provided. Pt. relays understanding. 1635: Pt. d/c'd amb. to home.
[2023-05-08 09:22] VITALS: BP 125/84; PULSE 84; RESP 16; TEMP 36.2; O2SAT 97; BMI 31.1
[2023-05-13] VITALS (10 sets, daily range): BP systolic 114–132; BP diastolic 54–77; PULSE 74–80; RESP 10–20; TEMP 36.1–36.2; O2SAT 95–99; BMI 31.4
--- NOTE | 2023-05-13 | OP_ITS ---
OPERATION DATE: 05/13/2023 PREOPERATIVE DIAGNOSIS: Right breast cancer, need for secure central venous access for chemotherapy. POSTOPERATIVE DIAGNOSIS: Right breast cancer, need for secure central venous access for chemotherapy. PROCEDURE: Left subclavian Infusaport insertion. SURGEON: Jackson Betancourt M.D. ANESTHESIA: General with laryngeal mask airway. ESTIMATED BLOOD LOSS: Less than 10 mL. INDICATIONS AND CONSENT: Patient is a 52-year-old female, recently diagnosed with right breast cancer, requires neoadjuvant chemotherapy. Indications, risks, benefits, alternatives of proceeding with Infusaport insertion were explained extensively to the patient, including risks of bleeding, infection, blood clot, pulmonary embolus, anesthetic complications, need for further surgery or port removal. All of her questions were answered. Informed consent was obtained. PROCEDURE: Patient brought to the operating room, placed in the supine position. General anesthesia was induced. She was prepped and draped in the usual sterile fashion. A sterile Seldinger technique was used to gain access to the left subclavian vein. There was good venous return on the first stick. The wire was then passed easily into the right heart, where it was confirmed with fluoroscopy. A small stab incision was then made over the wire with a #11 blade. The dilator was passed through the wire, followed by the dilator and peel away sheath. Good position was confirmed with fluoroscopy. The dilator and wire were removed. The preflushed catheter was then inserted through the peel away sheath, and the peel away sheath was removed. Catheter was then adjusted so it was in good position in the distal SVC at the level of the . Incision was then made just below and medial to the insertion site for the port. It was carried down through subcutaneous tissue using sharp dissection as well as electrocautery. A pocket was created above the pectoralis fascia. The catheter was then tunneled to this port site. The preflushed port was then attached to the catheter. It aspirated blood easily. It was then flushed with heparinized saline and flushed. It was checked was again. The catheter was noted to be in good position without kinking or twisting along its course. The port was then secured to the pectoralis fascia using interrupted 2- 0 Prolene sutures. Incisions were then closed in layers with 3-0 Monocryl subcutaneous sutures and 4-0 Monocryl subcuticular sutures, as well as skin glue. A sterile pressure dressing was applied. Sponge and needle counts were correct x3 per nursing personnel. Patient tolerated procedure well, was sent to recovery room in good condition, where a portable chest x-ray is pending at the time of this dictation. CC: Leti Peoples M.D. MTDD
--- NOTE | 2023-05-13 09:24 | XR_ITS ---
The [address] [address] Patient Name: IKE JONES MRN: [id number] date: 1970 Sex: F Assigned Patient Location: [facility] Access[facility]Order Number: [id number] Exam Date: 05/13/2023 09:30 Report Date: 05/13/2023 09:55 At the request of: SANDRITA WILLETT Procedure: XR chest 1V EXAMINATION: XR chest 1V HISTORY: LINE VERIFICATION COMPARISON: No relevant comparison available. TECHNIQUE: AP portable FINDINGS: LUNGS: No significant pulmonary parenchymal abnormalities. VASCULATURE: No increased pulmonary vasculature. PLEURA: No pneumothorax, effusion, or pleural thickening. CARDIAC: No cardiomegaly or cardiac silhouette abnormality. MEDIASTINUM: No visible mass or adenopathy. BONES: No fracture or visible bone lesion. Levocurvature OTHER: Right PICC catheter tip extends to the mid superior vena cava XR/XR chest 1V IMPRESSION: PICC catheter tip likely in the mid superior vena cava, normal position Electronically authenticated by: HIRAL CAVANAUGH Date: 05/13/2023 09:55
[2023-05-13] MEDS: LACTATED RINGER'S SOLUTION 1,000 ML 50 ML IV (09:47)
[2023-05-13] MEDS: CEFAZOLIN SODIUM/DEXTROSE,ISO 2 GM/50 ML PIGGYBACK IV (11:33)
[2023-05-13] MEDS: BUPIVACAINE HCL 0.5% PF 50 MG/10 ML VIAL INJ (12:19)
[2023-05-13] MEDS: HEPARIN SODIUM (PORCINE) PF LOCK FLUSH 500 UNIT/5 ML SYRINGE INJ ×3 (12:19→12:21)
--- NOTE | 2023-05-13 12:34 | FL_ITS ---
[address] [address] Patient Name: IKE JONES MRN: [id number] date: 1970 Sex: F Assigned Patient Location: SURGOUT Current Patient Location: [facility] Accession/Order Number: [id number] Exam Date: 05/13/2023 11:55 Report Date: 05/14/2023 13:24 At the request of: SANDRITA WILLETT Procedure: FL fluoroscopy <1hr NON-READ EXAM: FL fluoroscopy <1hr NON-READ HISTORY: TECHNIQUE: FINDINGS: Please see Operative Report. Electronically authenticated by: RADIOLOGIST NO Date: 05/14/2023 13:24
--- NOTE | 2023-05-13 12:50 | XR_ITS ---
The [address] [address] Patient Name: IKE JONES MRN: [id number] date: 1970 Sex: F Assigned Patient Location: [facility]OUT [facility] Accession/Order Number: [id number] Exam Date: 05/13/2023 13:00 Report Date: 05/13/2023 13:39 At the request of: SANDRITA WILLETT Procedure: XR chest 1V EXAM: XR chest 1V CLINICAL INDICATION: s/p port placement TECHNIQUE: Portable frontal semi-erect view of the chest. COMPARISON: 05/13/2023 FINDINGS: Lines and tubes: Stable right PICC. Interval left chest wall MediPort placement with tip projecting over the cavoatrial junction. Lungs: No convincing focal infiltrates. No pleural effusion or pneumothorax. Heart: Cardiac and mediastinal contours are unremarkable. No overt pulmonary vascular congestion. Osseous structures: No acute abnormalities. XR/XR chest 1V IMPRESSION: No acute cardiopulmonary process. Electronically authenticated by: EVELIN DALE Date: 05/13/2023 13:39
== END 2023-05-13 13:52 | disposition home or self-care (01) ==
PROVIDERS: PCP Nurse Practitioner Family; Visit Provider Surgery
PROC: (CPT 532; principal; 2023-05-13 10:20)
DX: C50.311 Malignant neoplasm of lower-inner quadrant of right female breast (principal); Z86.16 Personal history of COVID-19; I10 Essential (primary) hypertension; M19.90 Unspecified osteoarthritis, unspecified site; Z90.710 Acquired absence of both cervix and uterus; Z79.60 Long term (current) use of unspecified immunomodulators and immunosuppressants
CPT/HCPCS: 36561; 71045; 76000; C1778; J1094; J2704

== ENCOUNTER 2023-05-15 08:01 | Outpatient (OUT) | payer OTHER, SELFPAY ==
--- NOTE | 2023-05-15 08:00 | CA_ITS ---
Patient Name: IKE JONES MR#: [id number] : 1970 Exam Date: 05/15/2023 Ordering Doctor: AARTI NUNEZ ECHOCARDIOGRAM REPORT PROCEDURE: CA ECHO DOPPLER COMPLETE INDICATIONS: Cardiotoxic chemotherapy, malignant neoplasm right breast and lymph node, hypertension COMPARISON: None. DESCRIPTION: COMPLETE ECHOCARDIOGRAM Real-time transthoracic echocardiography with 2D, M-mode, spectral and color flow Doppler performed. QUALITY: Technical quality was good. 71 , 220#, BSA 2.20 m2, BP 124/86 LEFT VENTRICLE: Normal chamber size. Mild concentric left ventricular hypertrophy. LV EF: Global left ventricular systolic function is normal; visually estimated ejection fraction is 55-60%. Unable to assess regional wall motion abnormalities. DIASTOLIC: Diastolic function is indeterminate. ATRIAL SEPTUM: Visually appears intact. LEFT ATRIUM: Mild dilatation. RIGHT ATRIUM: Mild dilatation. RIGHT VENTRICLE: Normal chamber size. Normal right ventricular systolic function. TRICUSPID VALVE: Normal mobility and thickness. No stenosis with trivial regurgitation. Doppler studies reveal mildly (35-45) elevated right sided pressures. RVSP 36 mmHg MITRAL VALVE: Normal mobility and thickness. No evidence of mitral valve stenosis. There is no mitral annular calcification. Trivial mitral regurgitation. AORTIC VALVE: Normal trileaflet appearance. No visible sclerosis. Normal leaflet mobility. No evidence of aortic valve stenosis. No aortic regurgitation. AORTIC ROOT: Normal diameter and appearance. PULMONIC VALVE: Normal thickness and mobility. No stenosis. Trivial regurgitation. PERICARDIUM: No evidence of pericardial effusion. STRAIN: GSL (4CH) -13%, GSL (2CH) -14.2%, GSL (APLAX) -13.6%, Globa strain (average) -13.6%. No prior studies to compare. CONCLUSION: 1. Global left ventricular systolic function is normal; visually estimated ejection fraction is 55 to 60% 2. Normal right ventricular size and systolic function 3. Diastolic function is indeterminate 4. Biatrial enlargement 5. Mildly elevated right ventricular systolic pressure; RVSP 26 mmHg 6. No significant valvular abnormalities Adult Echocardiography Procedure Report Left Ventricle LVEDD (3.7 - 5.6 cm): 4.33 cm LVESD (2.2 - 4.0 cm): 3.09 cm LVIVS thickness (0.6 - 1.2 cm): 1.09 cm LVPW thickness (0.5 - 1.0 cm): 1.05 cm e': 0.09 m/s E - e': 6.67 LVOT Max Gradient: 3.38 mm[Hg] LVOT Area (cm2): 0.92 m/s Peak Velocity (LVOT): 0.92 m/s Mean Velocity (LVOT): 0.62 m/s LVOT Diameter 2.38 cm Left Atrium Left Atrium Systolic Dimension: 3.49 cm Mitral Valve MV E to A Ratio: 0.98 Mitral Valve A-Wave Peak Velocity: 0.61 m/s Mitral Valve E-Wave Peak Velocity: 0.60 m/s Right Ventricle Aorta AO Root Diam: 3.30 cm Aortic Valve AoV Area (Peak Stefan): 4.12 cm2, 4.12 cm2 AoV Area (VTI): 4.37 cm2, 4.37 cm2 Peak Velocity(Antegrade Flow): 0.99 m/s Peak Gradient(Antegrade Flow): 3.90 mm[Hg] Mean Velocity(Antegrade Flow): 0.73 m/s Mean Gradient(Antegrade Flow): 2.33 mm[Hg] Velocity Time Integral: 19.97 cm Tricuspid Valve Peak Velocity (Regurgitant Flow): 2.31 m/s Pulmonic Valve Peak Velocity: 0.80 m/s Peak Gradient: 2.38 mm[Hg], 2.78 mm[Hg] Right Atrium Dictated by: Caron Harper M.D. on 05/15/2023 at 16:25 Approved by: Caron Harper M.D. on 05/15/2023 at 16:33
--- OUTSIDE RECORDS SUMMARY | 2023-05-15 08:04 | XMS_ITS | CCD ---
Author Name Unknown Address [address] [address] [place] [id number] Organization [facility] Care Team Providers Care Quail Farmer Name Role Phone Amy Carrillo Primary Care Provider Allergies Allergy Classification Reported Allergen(s) Allergy Type Date of Onset Reaction(s) Facility (8 sources) Adhesive agent Propensity to adverse reactions to drug 11-27-2021 [facility] [employer] Work Phone: (8 sources) Meperidine Drug Allergy 04-13-2021 [facility] Medications Current Medications Medication Drug Class(es) Dates Sig (Normalized) Sig (Original) albuterol 0.83 mg/ml inhalation solution (8 sources) beta2-Adrenergic Agonist Start: 3 take 3 mL by inhalation every six hours as needed for wheezing albuterol (PROVENTIL,VENTOLIN ) 2.5 mg /3 mL (0.083 %) nebulizer solution Indications: Mild intermittent asthma without complication Inhale 3 mL (2.5 mg total) by nebulization every 6 (six) hours as needed for wheezing. 75 mL 1 03/07/2022 Active carvedilol 25 mg oral tablet (8 sources) alpha-Adrenergic Bridgette, beta-Adrenergic Bridgette Start: 3 take 1 tablet by mouth at bedtime carvediloL (COREG) 25 mg tablet Take 1 tablet (25 mg total) by mouth in the morning and at bedtime. 180 tablet 1 05/01/2022 Active cyclobenzaprine hydrochloride 10 mg oral tablet (9 sources) Muscle Relaxant Start: 3 End: 4 take 1 tablet by mouth once daily in the evening cyclobenzaprine (FLEXERIL) 10 mg tablet TAKE ONE TABLET BY MOUTH ONCE DAILY IN THE EVENING 30 tablet 11 04/28/2023 Active ferrous sulfate 325 mg oral tablet (8 sources) Start: 3 take 1 tablet by mouth in the morning ferrous sulfate 325 (65 FE) mg tablet Take 1 tablet (325 mg total) by mouth in the morning. 90 tablet 2 03/07/2022 Active fluticasone propionate 0.05 mg/actuat metered dose nasal spray (8 sources) Corticosteroid take 1 spray(s) nasal route once daily fluticasone propionate (FLONASE) 50 mcg/actuation nasal spray 1 spray in each nostril Nasally Once a day 0 Active hydroCHLOROthiazide 12.5 mg / lisinopril 20 mg oral tablet (8 sources) Thiazide Diuretic, Angiotensin Converting Enzyme Inhibitor Start: 2 take 1 tablet by mouth every twenty-four hours lisinopril-hydroCHL OROthiazide (PRINZIDE,ZESTORETI C) 20-12.5 mg per tablet Take 1 tablet by mouth daily. 90 tablet 1 11/27/2021 Active microencapsulated potassium chloride 20 meq extended release oral tablet (10 sources) Start: 4 End: 4 take 1 tablet by mouth in the morning potassium chloride (KLOR-CON M 20) 20 MEQ CR tablet Take 1 tablet (20 mEq total) by mouth in the morning and 1 tablet (20 mEq total) before bedtime. Do all this for 7 days. 14 tablet 0 03/23/2023 03/30/2023 Active potassium chlori de (K-TAB,KLOR-CON) 10 MEQ CR tablet Take 1 tablet (10 mEq total) by mouth in the morning. 0 Active predniSONE 5 mg oral tablet (1 source) take 1 tablet by mouth in the morning predniSONE (DELTASONE) 5 mg tablet Take 1 tablet (5 mg total) by mouth in the morning. 0 Active traZODone hydrochloride 50 mg oral tablet (9 sources) Serotonin Reuptake Inhibitor Start: 3 End: 4 take 1 tablet by mouth once daily traZODone (DESYREL) 50 mg tablet TAKE ONE TABLET BY MOUTH ONCE DAILY AT NIGHT 90 tablet 1 03/04/2023 Active Problems Active Problems Problem Classification Problem Date Documented Da te Episodic/Chronic Asthma (8 sources) Exercise-induced asthma; Translations: [Exercise induced bronchospasm] Onset: 03-07-2022 03-07-2022 Chronic Cancer of breast (2 sources) Malignant neoplasm of lower-inner quadrant of female breast; Translations: [Malignant neoplasm of lower-inner quadrant of right female breast] Onset: 04-09-2023 04-09-2023 Chronic Cardiac dysrhythmias (8 sources) Cardiac arrhythmia; Translations: [Cardiac arrhythmia, unspecified] Onset: 11-27-2021 11-27-2021 Chronic Cataract (8 sources) Secondary cataract of right eye; Translations: [Unspecified secondary cataract] Onset: 01-31-2022 01-31-2022 Chronic Essential hypertension (8 sources) Hypertensive disorder; Translations: [Essential (primary) hypertension] Onset: 12-23-2019 11-27-2021 Chronic Hypertension with complications and secondary hypertension (8 sources) 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; Translations: [Hypertensive chronic kidney disease with stage 1 through stage 4 chronic kidney disease, or unspecified chronic kidney disease] Onset: 05-24-2021 11-27-2021 Chronic Joint disorders and dislocations; trauma-related (8 sources) Derangement of right knee; Translations: [Unspecified internal derangement of right knee] Onset: 11-27-2021 11-27-2021 Chronic Nonmalignant breast conditions (1 source) Lump in lower inner quadrant of right breast; Translations: [Unspecified lump in the right breast, lower inner quadrant] 03-23-2023 Episodic Osteoarthritis (16 sources) Arthritis of left knee; Translations: [Unilateral primary osteoarthritis, left knee] Onset: 11-27-2021 11-27-2021 Chronic Other screening for suspected conditions (not mental disorders or infectious disease) (1 source) Mammography abnormal; Translations: [Other abnormal and inconclusive findings on diagnostic imaging of breast] 03-10-2023 Episodic Past or Other Problems Problem Classification Problem Date Documented Da te Episodic/Chronic Cardiac dysrhythmias (8 sources) Palpitations; Translations: [Palpitations] Onset: 11-27-2021 11-27-2021 Episodic Deficiency and other anemia (8 sources) Iron deficiency anemia; Translations: [Iron deficiency anemia, unspecified] Onset: 03-07-2022 03-07-2022 Episodic Fluid and electrolyte disorders (9 sources) Chronic hypokalemia; Translations: [Hypokalemia] Onset: 12-23-2019 11-27-2021 Episodic Mood disorders (8 sources) Mood disorders Onset: 03-07-2022 03-07-2022 Other skin disorders (8 sources) Epidermoid cyst of skin; Translations: [Epidermal cyst] Onset: 11-27-2021 11-27-2021 Episodic Sprains and strains (8 sources) Complete tear, knee, anterior cruciate ligament; Translations: [Sprain of anterior cruciate ligament of unspecified knee, initial encounter] Onset: 04-30-2006 11-27-2021 Episodic Urinary tract infections (8 sources) Recurrent urinary tract infection; Translations: [Urinary tract infection, site not specified] Onset: 01-31-2022 01-31-2022 Episodic Results Test Name Value Interpretation Reference Range Facil ity MG Breast duct - right Views W contrast intra ductOrdered By: Ana Ibrahim on 03-10-2023 Radiology Study observation (narrative) [facility] MG Breast duct - right Views W contrast intra ductOrdered By: Ana Ibrahim on 03-06-2023 [facility] Encounters Encounter Date Encounter Type Care Provider Facility Start: 04-28-2023 Refill Lynda Manuel VARNISH BLENDER-SENIOR LEAD JAVA DEVELOPER Work Phone: [facility] Start: 04-17-2023 Telephone encounter Amy babcock VARNISH BLENDER-CLOUD CONSULTANT Work Phone: [facility] Start: 04-02-2023 Orders Only Amy Collier VARNISH BLENDER-CLOUD CONSULTANT Work Phone: [facility] Start: 03-24-2023 Telephone encounter Amy hernández VARNISH BLENDER-CLOUD CONSULTANT Work Phone: [facility] Start: 03-23-2023 Orders Only Amy Collier VARNISH BLENDER-CLOUD CONSULTANT [facility] Phone[facility] Comment on above: Mass of lower inner quadrant of right breast (Primary Dx) Hypokalemia (Primary Dx) Start: 03-10-2023 Orders Only Amy Collier VARNISH BLENDER-CLOUD CONSULTANT Work Phone: [facility] Comment on above: Abnormal mammogram o f right breast (Primary Dx) Start: 03-03-2023 Refill Amy Collier VARNISH BLENDER-CLOUD CONSULTANT Work Phone: [facility] Procedures Date Procedure Procedure Detail Performing Clinician Start: 03-07-2022 Adult depression screening assessment Amy Collier [facility] Work Phone: Plan of Treatment Date Care Activity Detail Author Start: 07-08-2027 DTaP,Tdap and Td Vac cines (2 - Td or Tdap) DTaP,Tdap and Td Vaccines (2 - Td or Tdap) [facility] Start: 04-28-2024 Adult BMI Screening Adult BMI Screen ing [facility] Start: 04-28-2024 Tobacco Screening Tobacco Screening [facility] Start: 07-30-2023 End: 07-30-2023 Patient encounter procedure 07/30/2023 3:00 PM EDT Office Visit [facility] [address] [facility] [address] [facility] [place] [address] Christy He MD [address] [place] [phone] [facility] Start: 05-14-2023 End: 05-14-2023 Patient encounter procedure 05/14/2023 2:10 PM EDT Office Visit [facility] [address] [facility] [address] [facility] [address] [place] [address] [place] [phone] [facility] Start: 04-24-2023 Subsequent hospital visit by physician 04/24/2023 9:30 AM EST Hospital Encounter [facility] Be[facility]ano [place] [facility] [address] [place] [address] [facility] Wallace Bejarano [place] - MRI Start: 03-30-2023 End: 03-23-2024 Basic metabolic 2000 panel - Serum or Plasma Basic Metabolic Panel Lab Routine Hypokalemia Expected: 03/30/2023 (Approximate), Expires: 03/23/2024 [facility] Comment on above: Expected: 03/30/2023 (Approximate), Expires: 03/23/2024 Start: 03-10-2023 End: 03-10-2024 US Breast - right limited Ultrasound breast limited right Imaging Routine Abnormal mammogram of right breast Expected: 03/10/2023, Expires: 03/10/2024 [facility] Work Phone: Comment on above: Expected: 03/10/2023 , Expires: 03/10/2024 Start: 03-07-2023 Adult BMI Screening Adult BMI Screen ing [facility] Start: 03-07-2023 Depression Screening Depression Scre ening [facility] Start: 03-07-2023 Tobacco Screening Tobacco Screening [facility] Start: 10-31-2022 COVID-19 Vaccine ( season) COVID-19 Vaccine ( season) [facility] Start: 10-31-2022 Influenza vaccination Influenza Vacc ine [facility] Start: 2020 Administration of varicella zoster vaccine Zoster (Shingles) Vaccine (1 of 2) [facility] Start: 1989 Administration of varicella zoster vaccine Zoster (Shingles) Vaccine (1 of 2) [facility] Start: 1988 Adult BMI Follow Up Plan Adult BMI Follow Up Plan [facility] End: 03-23-2024 Magnesium [Mass/volume] in Serum or Plasma Magnesium Lab Routine Hypokalemia 1 Occurrences starting 03/23/2023 until 03/23/2024 [facility] Work Phone: Comment on above: 1 Occurrences starti ng 03/23/2023 until 03/23/2024 Immunizations Immunization Date Immunization Notes Care Provider Fa cility 12-06-2020 Covid-19, Mrna, Lnp- s, Pf, 30 Mcg/0.3 Ml Dose, Winston-sucrose Amy Amira VARNISH BLENDER-CLOUD CONSULTANT Work Phone: [facility] 12-06-2020 COVID-19, mRNA, LNP- S, PF, 30mcg/0.3mL Dose Amy Amira VARNISH BLENDER-CLOUD CONSULTANT Work Phone: [facility] 12-06-2020 SARS-COV-2 (COVID-19 ) Vaccine, Unspecified Amy Amira VARNISH BLENDER-CLOUD CONSULTANT Work Phone: [facility] 11-20-2019 influenza virus vaccine, unspecified formulation Amy Amira VARNISH BLENDER-CLOUD CONSULTANT Work Phone: [facility] 11-14-2019 influenza, seasonal, injectable Amy Amira VARNISH BLENDER-CLOUD CONSULTANT Work Phone: [facility] 12-13-2018 influenza, seasonal, injectable Amy Amira VARNISH BLENDER-CLOUD CONSULTANT Work Phone: [facility] 12-10-2017 influenza, injectabl e, quadrivalent, contains preservative Amy Amira VARNISH BLENDER-CLOUD CONSULTANT Work Phone: [facility] 07-07-2017 tetanus toxoid, redu popeye diphtheria toxoid, and acellular pertussis vaccine, adsorbed Amy Amira VARNISH BLENDER-CLOUD CONSULTANT Work Phone: [facility] 01-19-2017 influenza, injectabl e, quadrivalent, contains preservative Amy Amira VARNISH BLENDER-CLOUD CONSULTANT Work Phone: [facility] 01-07-2016 influenza, injectabl e, quadrivalent, contains preservative Amy Amira VARNISH BLENDER-CLOUD CONSULTANT Work Phone: [facility] 12-01-2015 influenza virus vaccine, unspecified formulation Amy Amira VARNISH BLENDER-CLOUD CONSULTANT Work Phone: [facility] 12-27-2014 influenza, injectabl e, quadrivalent, contains preservative Amy Amira VARNISH BLENDER-CLOUD CONSULTANT Work Phone: [facility] 12-06-2014 influenza, seasonal, injectable Amy Amira VARNISH BLENDER-CLOUD CONSULTANT Work Phone: [facility] 01-05-2014 influenza, injectabl e, quadrivalent, contains preservative Amy Amira VARNISH BLENDER-CLOUD CONSULTANT Work Phone: [facility] 12-29-2012 influenza, seasonal, injectable Amy Amira VARNISH BLENDER-CLOUD CONSULTANT Work Phone: [facility] 01-17-2009 novel [id number], preservative-free, injectable Amy Amira VARNISH BLENDER-CLOUD CONSULTANT Work Phone: [facility] Payers Date Payer Category Payer Private Health Insurance BARBARA CHAVARRIA [id number] 2019-Present [phone] [address] [place] [address] [id number] Social History Date Type Detail Facility Start: 04-13-2021 End: 04-28-2023 Tobacco smoking status NHIS Never smoked tobacco [facility] Start: 04-13-2021 End: 04-28-2023 Tobacco use and exposure Smokeless tobacco non-user [facility] Start: 03-07-2022 End: 04-28-2023 Alcohol intake Current drinker of alcohol (finding) [facility] Start: 02-27-2022 End: 03-07-2022 History of Social function [facility] Start: 02-27-2022 End: 03-07-2022 Social connection and isolation panel [facility] Do you belong to any clubs or organizations such as hoahaoism groups, unions, fraternal or athletic groups, or school groups? Yes [facility] Are you now , , , , never or living with a partner? [facility] How often to you hav e a drink containing alcohol? 2-3 time sa week [facility] How many standard dr inks containing alcohol do you have on a typical day? 1 or 2 [facility] How often do you hav e 6 or more drinks on 1 occasion? Less than monthly [facility] How hard is it for y ou to pay for the very basics like food, housing, medical care, and heating Not hard at all [facility] Do you feel stress - tense, restless, nervous, or anxious, or unable to sleep at night because your mind is troubled all the time - these days [OSQ] To some extent [facility] Start: 02-27-2022 Education 21 [facility] Start: 1970 Sex Assigned At Not on file [facility] Clinical Notes 03-23-2023 to 04-17-2023 Telephone Encounter - Ana Ibrahim - 04/17/2023 10:51 AM ESTTelephone Encounter - Anaalfredo Ibrahim - 04/17/2023 10:51 AM ESTTelephone Encounter - [facility] Patrice - 04/17/2023 10:51 AM EST Note Date & Type Note Facility 04-17-2023 Miscellaneous Notes Formattin g of this note might be different from the original. ----- Message from Randy Lu DO sent at 04/08/2023 11:46 AM EST ----- Regarding: Wellness appointment Patient had a low potassium. She is overdue for a wellness exam. We can recheck it then. She usually sees FREEZING ROOM WORKER ----- Message ----- From: Ana Ibrahim Sent: 04/07/2023 8:53 AM EST To: Randy Lu DO ATTEMPTED CONTACT TWICE SENDING LETTER documented in this encounter [facility] 04-17-2023 Telephone encount er Note ----- Message from Randy Lu DO sent at 04/08/2023 11:46 AM EST ----- Regarding: Wellness appointment Patient had a low potassium. She is overdue for a wellness exam. We can recheck it then. 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 Patient was already aware of results from her patient portal and Dr. Crain has set her up with Oncology in [place]. She has not yet made appt with breast surgeon. Her oncology appointment is coming up this Thursday. AMEENA Garcia 04/02/23 1703 documented in this encounter [facility] 03-24-2023 Miscellaneous Notes Formattin g of this note might be different from the original. Does she need another US? I sent you the one she had sone at [facility] She should just proceed for the US guided biopsy scheduled at [facility] - they got her in for the I believe. Further imaging will depend on results. documented in this encounter [facility] 03-24-2023 Telephone encount er Note Does she need another US? I sent you the one she had sone at [facility]24[facility]23 Telephone encount er Note She should just proceed for the US guided biopsy scheduled at [facility] - they got her in for the I believe. Further imaging will depend on results. [facility] 03-23-2023 History of Presen t illness Narrative Attempted to call pt - her potassium is very low - I sent her in potassium 20meq twice per day X 1 week. We may need to stop her HCTZ. I also want her to get her magnesium drawn today or tomorrow I sent this to the hospital lab. And then after her treatment with the twice a day potassium in 1 week I want to get her repeat BMP to see what her potassium is. AMEENA Garcia 03/23/23 1445 documented in this encounter [facility] 03-23-2023 History of Presen t illness Narrative Spoke to patient over phone regarding results of ultrasound of right breast that was highly suspicious for malignancy with lymph node enlargement as well. Patient was referred to [facility] for ultrasound-guided biopsy or Dr. He breast surgery in [place] to see which facility can get her in the soonest for the biopsy but she agrees to care then with Dr. He. AMEENA Garcia 03/23/23 0954 documented in this encounter [facility] Evaluation note Diagnosis Abnormal mammogram of right breast- Primary documented in this encounter [facility]* Diagnosis Mass of lower inner quadrant of right breast- Primary [facility] Diagnosis Hypokalemia- Primary Hypopotassemia documented in this encounter [facility]ructions[facility] on filedocumented in this encounter [facility] filedocumented in this encounter [facility] SystemInstructionsNot on filedocumented in this encounter [facility]Not on filedocumented in this encounter [facility] SystemReason for referral (narrative)* Consultation (Routine) - Pending Review Specialty Diagnoses / Procedures Referred By Contac t Referred To Contact Diagnoses Mass of lower inner quadrant of right breast Amy Collier APRN-CNP [address] [place] [address] [address] Referral ID Status Reason Start Date Expiration Date V isits Requested Visits Authorized [id number] Pending Review 03/23/2023 03/22/2024 1 1 * Consultation (Routine) - Pending Review Specialty Diagnoses / Procedures Referred By Jose olmedo Referred To Contact Breast Surgery Diagnoses Mass of lower inner quadrant of right breast Amy Collier APRN-CNP [address] [place] [address] Christy He MD [address] [place] [phone] Referral ID Status Reason Start Date Expiration Date V isits Requested Visits Authorized [id number] Pending Review 03/23/2023 03/22/2024 1 1 [facility] Additional Source Comments Reason for Visit (unrecogniz ed section and content) Reason Comments Med Refill Care Teams (unrecognized sec tion and content) Quail Farmer Relationship Specialty Start Date End Date Amy Collier APRN-CNP [address] [place] [address] PCP - General 11/28/16 Quail Farmer Relationship Specialty Start Date End Date Amy Collier APRN-CNP [address] [place] [address] PCP General 11/28/16 Quail Farmer Relationship Specialty Start Date End Date Amy Collier APRN-CLOUD CONSULTANT [address] [place] [address] [facility] 11/28/16 Quail Farmer Relationship Specialty Start Date End Date Amy Collier, VARNISH BLENDER-CLOUD CONSULTANT [address] [place] [address] [facility] 11/28/16 Quail Farmer Relationship Specialty Start Date End Date Amy Collier APRN-CLOUD CONSULTANT [address] [place] [address] [facility] 11/28/16 Quail Farmer Relationship Specialty Start Date End Date Amy Collier, VARNISH BLENDER-CLOUD CONSULTANT [address] [place] [address] [facility] 11/28/16 FOR RECORDS PERTAINING TO PATIENTS WHO ARE [...] BE BASED ON THE PRIMARY CLINICAL RECORDS. [facility]. provides no warranty or guarantee of the accuracy or completeness of information in this document.
== END 2023-05-15 08:02 | disposition home or self-care (01) ==
LOC: CARD 08:02
PROVIDERS: PCP Nurse Practitioner Family; Visit Provider Internal Medicine Hematology & Oncology
DX: C50.911 Malignant neoplasm of unspecified site of right female breast (principal); Z15.09 Genetic susceptibility to other malignant neoplasm; C77.9 Secondary and unspecified malignant neoplasm of lymph node, unspecified; R11.2 Nausea with vomiting, unspecified; D70.1 Agranulocytosis secondary to cancer chemotherapy; Z79.899 Other long term (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 therapy
CPT/HCPCS: 80053; 83735; 84443; 93306; 93356

== ENCOUNTER 2023-05-26 07:26 | Outpatient (RCR) | payer OTHER, SELFPAY ==
[2023-05-05 08:48] LABS: Basophils Absolute Auto 0.1 10^3/uL (0.0-0.1); Basophils Percent Auto 2.5 % (0.2-2.0); Eosinophils Absolute Auto 0.3 10^3/uL (0.0-0.7); Eosinophils Percent Auto 5.9 % (0.9-7.0); Hematocrit 32.8 % (36.0-48.0); Hemoglobin 11.5 g/dL (12.0-16.0); Immature Granulocytes Abs Auto 0.05 10^3/uL (0.00-0.03); Immature Granulocytes Pct Auto 1.1 % (0.0-0.5); Lymphocytes Absolute Auto 2.3 10^3/uL (1.2-3.8); Lymphocytes Percent Auto 50.7 % (20.5-60.0); Mean Corpuscular HGB Conc 35.1 g/dL (29.9-35.2); Mean Corpuscular Hemoglobin 30.4 pg (26.7-34.0); Mean Corpuscular Volume 86.8 fL (81.0-99.0); Mean Platelet Volume 9.3 fL (9.5-13.5); Monocytes Absolute Auto 0.4 10^3/uL (0.3-0.8); Monocytes Percent Auto 8.8 % (1.7-12.0); Neutrophils Absolute Auto 1.4 10^3/uL (1.4-6.5); Platelet Count 280 10^3/uL (150-450); Red Blood Count 3.78 10^6/uL (4.20-5.40); Red Cell Distribution Width 11.9 % (11.0-15.0); White Blood Count 4.4 10^3/uL (4.0-11.0)
[2023-05-05 09:03] LABS: Magnesium 1.4 mg/dL (1.8-2.4)
[2023-05-05] MEDS: DIPHENHYDRAMINE HCL IV (09:27)
[2023-05-05] MEDS: [UNRECOGNIZED DRUG - OTHER] IV (09:27)
[2023-05-05] MEDS: DEXAMETHASONE SODIUM PHOSPHATE IV (09:27)
[2023-05-05] MEDS: FAMOTIDINE 20 MG TABLET PO (09:27)
[2023-05-05] MEDS: 0.9 % SODIUM CHLORIDE 250 ML 10 ML IV (09:28)
[2023-05-05] MEDS: MAGNESIUM SULFATE IN WATER 2 GM/50 ML PREMIX IV (09:51)
[2023-05-05 09:57] VITALS: BP 130/84; PULSE 106; RESP 16; TEMP 36.3; O2SAT 92
[2023-05-05] MEDS: PACLITAXEL IV (10:17)
[2023-05-05] MEDS: SODIUM CHLORIDE 0.9% IV (10:17)
--- NOTE | 2023-05-05 11:06 | PC.NURSE ---
0910: Pt. to [facility] amb. accompanied by sig. other. Seated in recliner. PICC line to right upper arm intact and without s&s of infection or infiltration. Flushes easily with good blood return. Blood drawn earlier from PICC line for ordered labs. VSS. IV NS initiated at this time. 926: Labs reviewed. OK to proceed with treatment. IV Decadron and Benadryl initiated at this time IVPB. See 949: Pre-med infusion completed. IV Magnesium initiated as ordered. 1017: IV Paclitaxel initiated per regimen. Pt. eating breakfast. Denies c/o pain, n/v or dyspnea.
--- NOTE | 2023-05-05 11:18 | PC.NURSE ---
1117: Paclitaxel completed at this time without s&s of adverse reaction.
[2023-05-05] MEDS: LEUPROLIDE ACETATE 22.5 MG IM (11:20)
--- NOTE | 2023-05-05 11:28 | PC.NURSE ---
1120: Medicated with Lupron as ordered, IM to right deltoid. No bleeding to site. Bandaid applied prophylactically. Pt. tolerated with min. c/o. Up to bathroom to void.
[2023-05-05 11:39] VITALS: BP 147/78; PULSE 96; RESP 16; TEMP 36.6; O2SAT 95
--- NOTE | 2023-05-05 11:41 | PC.NURSE ---
1138: Pt. without c/o. VSS. PICC line to F after flushed with saline. D/c'd amb. to home with jovan.
[2023-05-12 09:24] LABS: Basophils Absolute Auto 0.1 10^3/uL (0.0-0.1); Basophils Percent Auto 1.3 % (0.2-2.0); Eosinophils Absolute Auto 0.3 10^3/uL (0.0-0.7); Eosinophils Percent Auto 4.9 % (0.9-7.0); Hematocrit 30.3 % (36.0-48.0); Hemoglobin 10.9 g/dL (12.0-16.0); Immature Granulocytes Abs Auto 0.05 10^3/uL (0.00-0.03); Immature Granulocytes Pct Auto 0.9 % (0.0-0.5); Lymphocytes Absolute Auto 2.3 10^3/uL (1.2-3.8); Lymphocytes Percent Auto 41.2 % (20.5-60.0); Mean Corpuscular Hemoglobin 31.3 pg (26.7-34.0); Mean Corpuscular Volume 87.1 fL (81.0-99.0); Mean Platelet Volume 9.2 fL (9.5-13.5); Monocytes Absolute Auto 0.2 10^3/uL (0.3-0.8); Monocytes Percent Auto 3.1 % (1.7-12.0); Neutrophils Absolute Auto 2.7 10^3/uL (1.4-6.5); Neutrophils Percent Auto 48.6 % (43.0-75.0); Platelet Count 279 10^3/uL (150-450); Red Blood Count 3.48 10^6/uL (4.20-5.40); Red Cell Distribution Width 12.1 % (11.0-15.0); White Blood Count 5.5 10^3/uL (4.0-11.0)
[2023-05-12 09:49] LABS: Alanine Aminotransferase 55 U/L (14-59); Albumin Globulin Ratio 0.9; Albumin Level 3.3 g/dL (3.4-5.0); Alkaline Phosphatase 69 U/L (46-116); Anion Gap 9.8; Aspartate Amino Transferase 34 U/L (15-37); BUN Creatinine Ratio 19.6; Bilirubin Total 0.6 mg/dL (0.2-1.0); Calcium 9.2 mg/dL (8.5-10.1); Carbon Dioxide 30.3 mmol/L (21.0-32.0); Chloride 103 mmol/L (98-107); Estimated GFR (African America >60 (>=60); Estimated GFR (Non-African Ame >60 (>=60); Globulin 3.5 g/dL; Glucose 120 mg/dL (74-106); Magnesium 1.4 mg/dL (1.8-2.4); Potassium 3.1 mmol/L (3.5-5.1); Sodium 140 mmol/L (136-145); TSH W/ REFLEX FT4 3.625 uIU/mL (0.358-3.740); Total Protein 6.8 g/dL (6.4-8.2)
[2023-05-12] MEDS: POTASSIUM CHLORIDE 20 MEQ in 0.9 % SODIUM CHLORIDE 250 ML 130 MEQ IV (10:28)
[2023-05-12] MEDS: FAMOTIDINE 20 MG TABLET PO (10:51)
[2023-05-12] MEDS: DIPHENHYDRAMINE HCL IV (10:52)
[2023-05-12] MEDS: [UNRECOGNIZED DRUG - OTHER] IV (10:52)
[2023-05-12] MEDS: DEXAMETHASONE SODIUM PHOSPHATE IV (10:52)
[2023-05-12] MEDS: PALONOSETRON HCL 0.25 MG/5 ML VIAL IV (10:59)
[2023-05-12] MEDS: 0.9 % SODIUM CHLORIDE 250 ML 20 ML IV (11:06)
[2023-05-12] MEDS: FOSAPREPITANT DIMEGLUMINE IV (11:21)
[2023-05-12] MEDS: SODIUM CHLORIDE 0.9% IV ×3 (11:21→13:22)
[2023-05-12 11:33] VITALS: BP 128/72; PULSE 102; RESP 16; TEMP 36.5; O2SAT 97
[2023-05-12] MEDS: PEMBROLIZUMAB 200 MG in 0.9 % SODIUM CHLORIDE 100 ML 216 MG IV (11:47)
[2023-05-12] MEDS: PACLITAXEL IV (12:17)
[2023-05-12] MEDS: MAGNESIUM SULFATE IN WATER 2 GM/50 ML PREMIX IV (12:45)
[2023-05-12] MEDS: CARBOPLATIN IV (13:22)
[2023-05-12 14:18] VITALS: BP 132/68; PULSE 99; RESP 16; TEMP 36.9; O2SAT 97
--- NOTE | 2023-05-12 14:20 | PC.NURSE ---
0959: Pt. to [facility] amb. accompanied by friends. Seated in recliner. PICC line in place to right upper arm and without s&s of infiltration.Flushes easily with good blood return on aspiration. VSS. IV NS infusing at KVO. 1018: Labs reviewed, Dr. Hope aware of results. New orders received. 1028: IV Potassium infusion initiated at this time as ordered. 1051: Pre-infusion meds given and IVPB pre-med initiated at this time. See MAR. Pt. given blanket and pillow and water. Declines food at this time. Friend at chairside. 1147: Keytruda 200mg iv initiated at this time. Pt. without c/o. Lunch tray ordered. 1217: IV Paclitaxel started as ordered. Lunch tray provided. Denies c/o. 1220:Keytruda completed. Pt. without c/o. 1245: Magnesium initiated. Ate 100% of lunch tray without c/o n/v. 1322: Carboplatin infusing at this time. Pt. cont. to deny s&s of adverse reaction. Using sterile technique, PICC line dressing changed. Site without redness, edema or drainage. Pt. tolerated well. 1405: Infusions completed at this time without adverse reactions. VSS. PICC line flushed with new cap applied. Pt. d/c'd amb. to home with friend.
--- NOTE | 2023-05-15 09:11 | PC.NURSE ---
0850: Pt. to [facility] amb. for PICC line removal. Port placed 05/13/2023. PICC line to right upper arm d/c'd with cath tip intact. Length of line 42.5cm. Site without s&s of infection. Pt. tolerated without c/o. Pressure held to site x5 minutes. Covered with sterile 4x4 and large opsite dressing. 0900: Pt. d/c'd amb. to home.
[2023-05-19 08:52] VITALS: BP 130/78; PULSE 105; RESP 16; TEMP 36.7; O2SAT 97
[2023-05-19 09:00] LABS: Basophils Absolute Auto 0.1 10^3/uL (0.0-0.1); Basophils Percent Auto 1.5 % (0.2-2.0); Eosinophils Absolute Auto 0.1 10^3/uL (0.0-0.7); Eosinophils Percent Auto 2.3 % (0.9-7.0); Hematocrit 31.3 % (36.0-48.0); Hemoglobin 10.7 g/dL (12.0-16.0); Immature Granulocytes Abs Auto 0.01 10^3/uL (0.00-0.03); Immature Granulocytes Pct Auto 0.2 % (0.0-0.5); Lymphocytes Absolute Auto 3.3 10^3/uL (1.2-3.8); Lymphocytes Percent Auto 67.8 % (20.5-60.0); Mean Corpuscular HGB Conc 34.2 g/dL (29.9-35.2); Mean Corpuscular Hemoglobin 30.6 pg (26.7-34.0); Mean Corpuscular Volume 89.4 fL (81.0-99.0); Mean Platelet Volume 9.4 fL (9.5-13.5); Monocytes Absolute Auto 0.2 10^3/uL (0.3-0.8); Monocytes Percent Auto 4.4 % (1.7-12.0); Neutrophils Absolute Auto 1.1 10^3/uL (1.4-6.5); Neutrophils Percent Auto 23.8 % (43.0-75.0); Platelet Count 272 10^3/uL (150-450); Red Cell Distribution Width 12.6 % (11.0-15.0); White Blood Count 4.8 10^3/uL (4.0-11.0)
[2023-05-19 09:23] LABS: Alanine Aminotransferase 42 U/L (14-59); Albumin Globulin Ratio 1.1; Albumin Level 3.6 g/dL (3.4-5.0); Alkaline Phosphatase 72 U/L (46-116); Anion Gap 14.8; Aspartate Amino Transferase 20 U/L (15-37); BUN Creatinine Ratio 17.8; Bilirubin Total 0.8 mg/dL (0.2-1.0); Calcium 9.3 mg/dL (8.5-10.1); Carbon Dioxide 28.4 mmol/L (21.0-32.0); Chloride 100 mmol/L (98-107); Estimated GFR (African America >60 (>=60); Estimated GFR (Non-African Ame 58 (>=60); Globulin 3.2 g/dL; Glucose 91 mg/dL (74-106); Potassium 3.2 mmol/L (3.5-5.1); Sodium 140 mmol/L (136-145); Total Protein 6.8 g/dL (6.4-8.2)
[2023-05-19 09:31] LABS: Magnesium 1.6 mg/dL (1.8-2.4); Thyroid Stimulating Hormone 6.839 uIU/mL (0.358-3.740)
[2023-05-19] MEDS: 0.9 % SODIUM CHLORIDE 250 ML 20 ML IV (09:35)
[2023-05-19] MEDS: FAMOTIDINE 20 MG TABLET PO (09:38)
[2023-05-19] MEDS: DIPHENHYDRAMINE HCL IV (09:38)
[2023-05-19] MEDS: [UNRECOGNIZED DRUG - OTHER] IV (09:38)
[2023-05-19] MEDS: DEXAMETHASONE SODIUM PHOSPHATE IV (09:38)
[2023-05-19] MEDS: PACLITAXEL IV (10:15)
[2023-05-19] MEDS: SODIUM CHLORIDE 0.9% IV (10:15)
[2023-05-19] MEDS: POTASSIUM CHLORIDE 20 MEQ in 0.9 % SODIUM CHLORIDE 250 ML 130 MEQ IV (10:17)
--- NOTE | 2023-05-19 10:27 | PC.NURSE ---
09:00 Patient is in infusion area, we reviewed her labs. 09:38: Premeds started, pepcid, benadryl and dexamethsone. A meal tray was ordered. 10:02: premeds completed. 10:15 Taxol started with potassium. She is tolerating this well.
[2023-05-19] MEDS: MAGNESIUM SULFATE IN WATER 2 GM/50 ML PREMIX IV (11:25)
[2023-05-19] MEDS: HEPARIN SODIUM (PORCINE) PF LOCK FLUSH 500 UNIT/5 ML SYRINGE IV (12:24)
--- NOTE | 2023-05-19 12:30 | PC.NURSE ---
12:18 Patient has completed infusions, she denies any issues. Her port was flushed with heparin and discontinued, she was discharged home ambulatory.
[2023-05-26 09:07] VITALS: BP 144/88; PULSE 112; RESP 16; TEMP 36.3; O2SAT 94
[2023-05-26 09:32] LABS: Basophils Absolute Auto 0.1 10^3/uL (0.0-0.1); Basophils Percent Auto 1.4 % (0.2-2.0); Eosinophils Absolute Auto 0.1 10^3/uL (0.0-0.7); Eosinophils Percent Auto 1.1 % (0.9-7.0); Hematocrit 28.6 % (36.0-48.0); Hemoglobin 9.9 g/dL (12.0-16.0); Immature Granulocytes Abs Auto 0.16 10^3/uL (0.00-0.03); Immature Granulocytes Pct Auto 3.7 % (0.0-0.5); Lymphocytes Absolute Auto 2.4 10^3/uL (1.2-3.8); Lymphocytes Percent Auto 55.2 % (20.5-60.0); Mean Corpuscular HGB Conc 34.6 g/dL (29.9-35.2); Mean Corpuscular Volume 89.7 fL (81.0-99.0); Monocytes Absolute Auto 0.5 10^3/uL (0.3-0.8); Monocytes Percent Auto 10.8 % (1.7-12.0); Neutrophils Absolute Auto 1.2 10^3/uL (1.4-6.5); Neutrophils Percent Auto 27.8 % (43.0-75.0); Platelet Count 278 10^3/uL (150-450); Red Blood Count 3.19 10^6/uL (4.20-5.40); Red Cell Distribution Width 13.6 % (11.0-15.0); White Blood Count 4.4 10^3/uL (4.0-11.0)
[2023-05-26 10:17] LABS: Alanine Aminotransferase 37 U/L (14-59); Albumin Globulin Ratio 1.1; Albumin Level 3.4 g/dL (3.4-5.0); Alkaline Phosphatase 71 U/L (46-116); Anion Gap 12.3; Aspartate Amino Transferase 22 U/L (15-37); BUN Creatinine Ratio 16.5; Bilirubin Total 0.6 mg/dL (0.2-1.0); Chloride 103 mmol/L (98-107); Estimated GFR (African America >60 (>=60); Estimated GFR (Non-African Ame >60 (>=60); Globulin 3.1 g/dL; Glucose 97 mg/dL (74-106); Magnesium 1.7 mg/dL (1.8-2.4); Potassium 3.3 mmol/L (3.5-5.1); Sodium 140 mmol/L (136-145); TSH W/ REFLEX FT4 3.517 uIU/mL (0.358-3.740); Total Protein 6.5 g/dL (6.4-8.2)
[2023-05-26] MEDS: [UNRECOGNIZED DRUG - OTHER] IV (10:18)
[2023-05-26] MEDS: DIPHENHYDRAMINE HCL IV (10:18)
[2023-05-26] MEDS: FAMOTIDINE 20 MG TABLET PO (10:18)
[2023-05-26] MEDS: DEXAMETHASONE SODIUM PHOSPHATE IV (10:18)
[2023-05-26] MEDS: 0.9 % SODIUM CHLORIDE 250 ML 30 ML IV (10:27)
[2023-05-26] MEDS: SODIUM CHLORIDE 0.9% IV (10:47)
[2023-05-26] MEDS: PACLITAXEL IV (10:47)
--- NOTE | 2023-05-26 10:59 | PC.NURSE ---
0850: Using sterile technique, left ant. chest port accessed using #19 gauge Dawson needle. Flushes easliy with good blood return. Blood obtained for ordered labs. Pt. to Dr. Gregory office for appointment. 0945: Pt. to [facility] amb. accompanied by jovan from Dr. Gregory office. Seated in recliner. VSS. IV N.S. initiated at [facility] Awaiting lab results. 1018: Labs WNL to proceed with treatment. Pre-meds given at this time. Breakfast tray provided. 1047: IV Paclitaxel initiated at this time after double check with Kamilla, RN. 1111: Pt. Tolerating infusion without s&s of adverse reaction. Relays comfort.
[2023-05-26] MEDS: POTASSIUM CHLORIDE 20 MEQ in 0.9 % SODIUM CHLORIDE 250 ML 130 MEQ IV (11:22)
--- NOTE | 2023-05-26 11:42 | PC.NURSE ---
1142: Pt. without c/o. Denies needs. Port site without edema or s&s of extravasation.
[2023-05-26] MEDS: MAGNESIUM SULFATE IN WATER 2 GM/50 ML PREMIX IV (11:50)
--- NOTE | 2023-05-26 13:13 | PC.NURSE ---
1200: Paclitaxel infusion completed without s&s of adverse reaction. Pt. denies needs or c/o. Fiancee at chairside.
[2023-05-26] MEDS: HEPARIN SODIUM (PORCINE) PF LOCK FLUSH 500 UNIT/5 ML SYRINGE IV (13:40)
[2023-05-26 14:04] VITALS: BP 136/78; PULSE 78; RESP 16; TEMP 36.6; O2SAT 98
--- NOTE | 2023-05-26 14:08 | PC.NURSE ---
1230: Pt. dozing off and on. IV Magnesium and Potassium cont. infusing. 1335: Pt. therapy completed at this time. VSS. Port flushed with Heparin and saline. Port de-accessed, trace bleeding to site. Covered with sterile 2x2 dressing. 1340: Pt. d/c'd amb. to home with jovan.
== END 2023-05-31 23:59 | disposition home or self-care (01) ==
LOC: INF 07:26
PROVIDERS: PCP Nurse Practitioner Family; Visit Provider Internal Medicine Hematology & Oncology
DX: Z51.11 Encounter for antineoplastic chemotherapy (principal); C50.311 Malignant neoplasm of lower-inner quadrant of right female breast; C77.9 Secondary and unspecified malignant neoplasm of lymph node, unspecified; R11.2 Nausea with vomiting, unspecified; D70.1 Agranulocytosis secondary to cancer chemotherapy; Z79.899 Other long term (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 therapy; Z90.710 Acquired absence of both cervix and uterus; I10 Essential (primary) hypertension; Z79.818 Long term (current) use of other agents affecting estrogen receptors and estrogen levels; Z17.0 Estrogen receptor positive status [ER+]
CPT/HCPCS: 36591; 36592; 80053; 83735; 84443; 85025; 93306; 93356; 96366; 96367; 96368; 96372; 96375; 96413; 96415; 96417; G0463; J1100; J1453; J1954; J2469; J3480; J9045; J9267; J9271

== ENCOUNTER 2023-06-01 21:11 | Outpatient (REF) | payer OTHER, SELFPAY ==
--- OUTSIDE RECORDS SUMMARY | 2023-06-01 21:15 | XMS_ITS | CCD ---
Author Organization [facility] Care Team Providers Care Youth Accommodation Support Worker Name Role Phone Amy Carrillo Primary Care Provider Allergies Allergy Classification Reported Allergen(s) Allergy Type Date of Onset Reaction(s) Facility (8 sources) Adhesive agent Propensity to adverse reactions to drug 11-27-2021 [facility] Work Phone: (8 sources) Meperidine Drug Allergy 04-13-2021 [facility] Medications Current Medications Medication Drug Class(es) Dates [...] Ibrahim on 03-10-2023 Radiology Study observation (narrative) [facility] Breast duct - right Views W contrast intra ductOrdered By: Ana Ibrahim on 03-06-2023 [facility] Encounters Encounter Date Encounter Type Care Provider Facility Start: 04-28-2023 Refill Lynda Manuel LATHE WINDER-C DEVELOPER Work Phone: [facility] Start: 04-17-2023 Telephone encounter Amy hernández LATHE WINDER-DOOR MAKER Work Phone: [facility] Start: 04-02-2023 Orders Only Amy Collier LATHE WINDER-DOOR MAKER Work Phone: [facility] Start: 03-24-2023 Telephone encounter Amy hernández LATHE WINDER-DOOR MAKER Work Phone: [facility] Start: 03-23-2023 Orders Only Amy Collier LATHE WINDER-DOOR MAKER Work Phone: [facility] Comment on above: Mass of lower inner quadrant of right breast (Primary Dx) Hypokalemia (Primary Dx) Start: 03-10-2023 Orders Only Amy Collier LATHE WINDER-DOOR MAKER Work Phone: [facility] Comment on above: Abnormal mammogram o f right breast (Primary Dx) Start: 03-03-2023 Refill Amy L Amira RICHTER-DOOR MAKER Work Phone: [facility] Procedures Date Procedure Procedure Detail Performing Clinician Start: 03-07-2022 Adult depression screening assessment Amy Amira RICHTER-DOOR MAKER Work Phone: Plan of Treatment Date Care Activity Detail Author Start: 07-08-2027 DTaP,Tdap and Td Vac cines (2 - Td or Tdap) DTaP,Tdap and Td Vaccines (2 - Td or Tdap) [facility] Start: 04-28-2024 Adult BMI Screening Adult BMI Screen ing [facility] Start: 04-28-2024 Tobacco Screening Tobacco Screening [facility] Start: 07-30-2023 End: 07-30-2023 Patient encounter procedure 07/30/2023 3:00 PM EDT Office Visit [facility] [address] [facility] [address] [place] [id number] Christy He MD [address] [place] [phone] [facility] Start: 05-14-2023 End: 05-14-2023 Patient encounter procedure 05/14/2023 2:10 PM EDT Office Visit [facility] [address] [facility] [address] [place] [address] [place] [address] [place] [address] [address] [place] [address] [facility] Start: 04-24-2023 Subsequent hospital visit by physician 04/24/2023 9:30 AM EST Hospital Encounter [facility] [place] [facility] [address] [place] [id number] [facility] [place] [facility] Start: 03-30-2023 End: 03-23-2024 Basic metabolic 2000 panel - Serum or Plasma Basic Metabolic Panel Lab Routine Hypokalemia Expected: 03/30/2023 (Approximate), Expires: 03/23/2024 [facility] Comment on above: Expected: 03/30/2023 (Approximate), Expires: 03/23/2024 Start: 03-10-2023 End: 03-10-2024 US Breast - right limited Ultrasound breast limited right Imaging Routine Abnormal mammogram of right breast Expected: 03/10/2023, Expires: 03/10/2024 [facility] Work Phone: Comment on above: Expected: 03/10/2023 , Expires: 03/10/2024 Start: 03-07-2023 Adult BMI Screening Adult BMI Screen ing [facility] Start: 03-07-2023 Depression Screening Depression Scre ening [facility] Start: 03-07-2023 Tobacco Screening Tobacco Screening [facility] Start: 10-31-2022 COVID-19 Vaccine ( season) COVID-19 Vaccine ( season) [facility] Start: 10-31-2022 Influenza vaccination Influenza Vacc ine [facility] Start: 2020 Administration of varicella zoster vaccine Zoster (Shingles) Vaccine (1 of 2) [facility] Start: 1989 Administration of varicella zoster vaccine Zoster (Shingles) Vaccine (1 of 2) [facility] Start: 1988 Adult BMI Follow Up Plan Adult BMI Follow Up Plan [facility] End: 03-23-2024 Magnesium [Mass/volume] in Serum or Plasma Magnesium Lab Routine Hypokalemia 1 Occurrences starting 03/23/2023 until 03/23/2024 [facility] Work Phone: Comment on above: 1 Occurrences starti ng 03/23/2023 until 03/23/2024 Immunizations Immunization Date Immunization Notes Care Provider Brandi box 12-06-2020 Covid-19, Mrna, Lnp- s, Pf, 30 Mcg/0.3 Ml Dose, Winston-sucrose Amy Collier LATHE WINDER-DOOR MAKER Work Phone: [facility] 12-06-2020 COVID-19, mRNA, LNP- S, PF, 30mcg/0.3mL Dose Amy Amira LATHE WINDER-DOOR MAKER Work Phone: [facility] 12-06-2020 SARS-COV-2 (COVID-19 ) Vaccine, Unspecified Amy Amira LATHE WINDER-DOOR MAKER Work Phone: [facility] 11-20-2019 influenza virus vaccine, unspecified formulation Amy Amira LATHE WINDER-DOOR MAKER Work Phone: [facility] 11-14-2019 influenza, seasonal, injectable Amy Amira LATHE WINDER-DOOR MAKER Work Phone: [facility] 12-13-2018 influenza, seasonal, injectable Amy Amira LATHE WINDER-DOOR MAKER Work Phone: [facility] 12-10-2017 influenza, injectabl e, quadrivalent, contains preservative Amy Amira LATHE WINDER-DOOR MAKER Work Phone: [facility] 07-07-2017 tetanus toxoid, redu popeye diphtheria toxoid, and acellular pertussis vaccine, adsorbed Amy Amira LATHE WINDER-DOOR MAKER Work Phone: [facility] 01-19-2017 influenza, injectabl e, quadrivalent, contains preservative Amy Amira LATHE WINDER-DOOR MAKER Work Phone: [facility] 01-07-2016 influenza, injectabl e, quadrivalent, contains preservative Amy Amira LATHE WINDER-DOOR MAKER Work Phone: [facility] 12-01-2015 influenza virus vaccine, unspecified formulation Amy Amira LATHE WINDER-DOOR MAKER Work Phone: [facility] 12-27-2014 influenza, injectabl e, quadrivalent, contains preservative Amy Amira LATHE WINDER-DOOR MAKER Work Phone: [facility] 12-06-2014 influenza, seasonal, injectable Amy Amira LATHE WINDER-DOOR MAKER Work Phone: [facility] 01-05-2014 influenza, injectabl e, quadrivalent, contains preservative Amy Collier LATHE WINDER-[facility] Work Phone: [facility] 12-29-2012 influenza, seasonal, injectable Amy Amira LATHE WINDER-DOOR MAKER Work Phone: [facility] 01-17-2009 novel [id number], preservative-free, injectable Amy Amira LATHE WINDER-[facility] Work Phone: [facility] Payers Date Payer Category Payer Private Health Insurance BARBARA CHAVARRIA [id number] 2019-Present [phone] [address] [place] [address] [id number] Social History Date Type Detail Facility Start: 04-13-2021 End: 04-28-2023 Tobacco smoking status NHIS Never smoked tobacco [facility] Start: 04-13-2021 End: 04-28-2023 Tobacco use and exposure Smokeless tobacco non-user [facility] Start: 03-07-2022 End: 04-28-2023 Alcohol intake Current drinker of alcohol (finding) [facility] Start: 02-27-2022 End: 03-07-2022 History of Social function [facility] Start: 02-27-2022 End: 03-07-2022 Social connection and isolation panel [facility] Do you belong to any clubs or organizations such as jew groups, unions, fraternal or athletic groups, or school groups? Yes [facility] Are you now , , , , never or living with a partner? [facility] How often to you hav e a drink containing alcohol? 2-3 time sa week [facility] How many standard dr inks containing alcohol do you have on a typical day? 1 or 2 [facility] How often do you hav e 6 or more drinks on 1 occasion? Less than monthly [facility] How hard is it for y ou to pay for the very basics like food, housing, medical care, and heating Not hard at all [facility] Do you feel stress - tense, restless, nervous, or anxious, or unable to sleep at night because your mind is troubled all the time - these days [OSQ] To some extent [facility] Start: 02-27-2022 Education 21 [facility] Start: 1970 Sex Assigned At Not on file P [facility] Clinical Notes 03-23-2023 to 04-17-2023 Telephone Encounter - Ana Ibrahim - 04/17/2023 10:51 AM ESTTelephone Encounter - Anaalfredo Ibrahim - 04/17/2023 10:51 AM ESTTelephone Encounter - Anaalfredo Ibrahim - 04/17/2023 10:51 AM EST Note Date & Type Note Facility 04-17-2023 Miscellaneous Notes Formattin g of this note might be different from the original. ----- Message from Randy Lu DO sent at 04/08/2023 11:46 AM EST ----- Regarding: Wellness appointment Patient had a low potassium. She is overdue for a wellness exam. We can recheck it then. She usually sees SUPPLY COORDINATOR ----- Message ----- From: Ana Ibrahim Sent: 04/07/2023 8:53 AM EST To: Randy Lu DO ATTEMPTED CONTACT TWICE SENDING LETTER documented in this encounter [facility] 04-17-2023 Telephone encount er Note ----- Message from Randy Lu DO sent at 04/08/2023 11:46 AM EST ----- Regarding: Wellness appointment Patient had a low potassium. She is overdue for a wellness exam. We can recheck it then. 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 Patient was already aware of results from her patient portal and Dr. Crain has set her up with Oncology in [place]. She has not yet made appt with breast surgeon. Her oncology appointment is coming up this Thursday. AMEENA Garcia 04/02/231702 documented in this encounter [facility] 03-24-2023 Miscellaneous Notes Formattin g of this note might be different from the original. Does she need another US? I sent you the one she had sone at [facility] She should just proceed for the US guided biopsy scheduled at [facility] - they got her in for the I believe. Further imaging will depend on results. documented in this encounter [facility] 03-24-2023 Telephone encount er Note Does she need another US? I sent you the one she had sone at [facility] 03-24-2023 Telephone encount er Note She should just proceed for the US guided biopsy scheduled at [facility] - they got her in for the I believe. Further imaging will depend on results. [facility] 03-23-2023 History of Presen t illness Narrative [...] Garcia 03/23/23 1445 documented in this encounter [facility] 03-23-2023 History of Presen t illness Narrative Spoke to patient over phone regarding results of ultrasound of right breast that was highly suspicious for malignancy with lymph node enlargement as well. Patient was referred to [facility] for ultrasound-guided biopsy or Dr. He breast surgery in [place] to see which facility can get her in the soonest for the biopsy but she agrees to care then with Dr. He. AMEENA Garcia 03/23/23 0954 documented in this encounter [facility] Evaluation note Diagnosis Abnormal mammogram of right breast- Primary [facility] Diagnosis Mass of lower inner quadrant of right breast- Primary [facility] Diagnosis Hypokalemia- Primary Hypopotassemia documented in this [facility]ructionsNot on filedocumented in this encounter [facility] SystemInstructionsNot on filedocumented in this encounter [facility] SystemInstructionsNot on filedocumented in this encounter [facility] SystemInstructionsNot on filedocumented in this encounter [facility] CenterReason for referral (narrative)* Consultation (Routine) - Pending Review Specialty Diagnoses / Procedures Referred By Contac t Referred To Contact Diagnoses Mass of lower inner quadrant of right breast Amira AMEENA Hager [address] [place] [address] [address] Referral ID Status Reason Start Date Expiration Date V isits Requested Visits Authorized [id number] Pending Review 03/23/2023 03/22/2024 1 1 * Consultation (Routine) - Pending Review Specialty Diagnoses / Procedures Referred By Jose olmedo Referred To Contact Breast Surgery Diagnoses Mass of lower inner quadrant of right breast Amy Collier APRN-CNP [address] [place] [address] Christy He MD [address] [place] [phone] Referral ID Status Reason Start Date Expiration Date V isits Requested Visits Authorized [id number] Pending Review 03/23/2023 03/22/2024 1 1 [facility] Additional Source Comments Reason for Visit (unrecogniz ed section and content) Reason Comments Med Refill Care Teams (unrecognized sec tion and content) Youth Accommodation Support Worker Relationship Specialty Start Date End Date Amy Collier APRN-CNP [address] [place] [address] PCP - General 11/28/16 Youth Accommodation Support Worker Relationship Specialty Start Date End Date Amy Collier APRN-CNP [address] [place] [address] PCP - General 11/28/16 Youth Accommodation Support Worker Relationship Specialty Start Date End Date Amy Collier APRNDOOR MAKER [address] [place] [address] PCP - General 11/28/16 Youth Accommodation Support Worker Relationship Specialty Start Date End Date [facility] [address] [place] [address] PCP General 11/28/16 Youth Accommodation Support Worker Relationship Specialty Start Date End Date Amy Collier APRNDOOR MAKER [address] [place] [address] [facility] 11/28/16 Youth Accommodation Support Worker Relationship Specialty Start Date End Date Amy Collier APRNDOOR MAKER [address] [place] [address] [facility] 11/28/16 FOR RECORDS PERTAINING TO PATIENTS [...] BE BASED ON THE PRIMARY CLINICAL RECORDS. [facility] [employer] [facility]. provides no warranty or guarantee of the accuracy or completeness of information in this document.
[2023-06-05 17:09] LABS: Age Gdln ACOG Testing Note (.); HPV Aptima Negative (Negative); IGP, Aptima HPV, rfx 16/18,45 Note (.)
== END 2023-06-01 21:12 | disposition home or self-care (01) ==
LOC: LAB 21:11
PROVIDERS: PCP Nurse Practitioner Family; Visit Provider Obstetrics & Gynecology
DX: Z01.419 Encounter for gynecological examination (general) (routine) without abnormal findings (principal)
CPT/HCPCS: 87624; G0145

== ENCOUNTER 2023-06-30 07:30 | Outpatient (RCR) | payer OTHER, SELFPAY ==
[2023-06-02 08:25] VITALS: BP 135/78; PULSE 91; TEMP 36.1; O2SAT 98
--- NOTE | 2023-06-02 08:31 | PC.NURSE ---
0800: Pt. to [facility] amb. accompanied by jovan. Weight obtained. Seated in recliner. VSS. Using sterile technique , left ant. chest port accessed using 20 gauge Dawson needle. Flushes easily with good blood return. Blood obtained and sent to lab. Pt. tolerated with minimal c/o pain. 0816: Dr. Hope in to see pt.
[2023-06-02 08:42] LABS: Basophils Absolute Auto 0.1 10^3/uL (0.0-0.1); Basophils Percent Auto 1.5 % (0.2-2.0); Eosinophils Absolute Auto 0.1 10^3/uL (0.0-0.7); Eosinophils Percent Auto 1.9 % (0.9-7.0); Hematocrit 28.5 % (36.0-48.0); Hemoglobin 9.9 g/dL (12.0-16.0); Immature Granulocytes Abs Auto 0.04 10^3/uL (0.00-0.03); Immature Granulocytes Pct Auto 0.8 % (0.0-0.5); Lymphocytes Absolute Auto 2.5 10^3/uL (1.2-3.8); Lymphocytes Percent Auto 52.1 % (20.5-60.0); Mean Corpuscular HGB Conc 34.7 g/dL (29.9-35.2); Mean Corpuscular Hemoglobin 31.2 pg (26.7-34.0); Mean Corpuscular Volume 89.9 fL (81.0-99.0); Mean Platelet Volume 9.2 fL (9.5-13.5); Monocytes Absolute Auto 0.3 10^3/uL (0.3-0.8); Monocytes Percent Auto 6.3 % (1.7-12.0); Neutrophils Absolute Auto 1.8 10^3/uL (1.4-6.5); Neutrophils Percent Auto 37.4 % (43.0-75.0); Platelet Count 192 10^3/uL (150-450); Red Blood Count 3.17 10^6/uL (4.20-5.40); Red Cell Distribution Width 14.3 % (11.0-15.0); White Blood Count 4.7 10^3/uL (4.0-11.0)
[2023-06-02 09:00] LABS: Alanine Aminotransferase 36 U/L (14-59); Albumin Globulin Ratio 1.1; Albumin Level 3.5 g/dL (3.4-5.0); Alkaline Phosphatase 80 U/L (46-116); Anion Gap 14.4; Aspartate Amino Transferase 20 U/L (15-37); BUN Creatinine Ratio 16.1; Bilirubin Total 0.5 mg/dL (0.2-1.0); Calcium 9.2 mg/dL (8.5-10.1); Carbon Dioxide 27.6 mmol/L (21.0-32.0); Chloride 101 mmol/L (98-107); Estimated GFR (African America >60 (>=60); Estimated GFR (Non-African Ame >60 (>=60); Globulin 3.3 g/dL; Glucose 110 mg/dL (74-106); Magnesium 1.6 mg/dL (1.8-2.4); Sodium 140 mmol/L (136-145); Thyroid Stimulating Hormone 3.229 uIU/mL (0.358-3.740); Total Protein 6.8 g/dL (6.4-8.2)
--- NOTE | 2023-06-02 09:26 | PC.NURSE ---
0915: Labs reviewed with Katharine Phan to proceed with treatment. Pt. aware. Labs reviewed with pt. Questions addressed. Breakfast tray provided.
[2023-06-02] MEDS: PALONOSETRON HCL 0.25 MG/5 ML VIAL IV (09:53)
[2023-06-02] MEDS: FAMOTIDINE 20 MG TABLET PO (09:53)
[2023-06-02] MEDS: POTASSIUM CHLORIDE 20 MEQ in 0.9 % SODIUM CHLORIDE 250 ML 130 MEQ IV (09:57)
[2023-06-02] MEDS: SODIUM CHLORIDE 0.9% IV ×3 (10:09→12:40)
[2023-06-02] MEDS: FOSAPREPITANT DIMEGLUMINE IV (10:09)
[2023-06-02] MEDS: DEXAMETHASONE SODIUM PHOSPHATE IV (10:09)
[2023-06-02] MEDS: DIPHENHYDRAMINE HCL IV (10:09)
[2023-06-02] MEDS: [UNRECOGNIZED DRUG - OTHER] IV (10:09)
--- NOTE | 2023-06-02 10:26 | PC.NURSE ---
0953: Pre-meds and potassium infusion initiated at this time. Pt. without c/o or needs. Fitorreye at chair side.
[2023-06-02] MEDS: PEMBROLIZUMAB 200 MG in 0.9 % SODIUM CHLORIDE 100 ML 216 MG IV (11:08)
[2023-06-02] MEDS: PACLITAXEL IV (11:39)
[2023-06-02] MEDS: MAGNESIUM SULFATE IN WATER 2 GM/50 ML PREMIX IV (12:06)
[2023-06-02] MEDS: CARBOPLATIN IV (12:40)
[2023-06-02] MEDS: HEPARIN SODIUM (PORCINE) PF LOCK FLUSH 500 UNIT/5 ML SYRINGE IV (13:30)
--- NOTE | 2023-06-02 13:45 | PC.NURSE ---
1108: IV Keytruda initiated at this time. Resting quietly with eyes closed. Appears to be without s&s of distress. 1140: Keytruda completed without adverse reaction. Paclitaxel infusion initiated at this time. Pt. drinking and eating snacks. VSS. 1240: Paclitaxel completed at this time. No c/o. Resumes napping. Denies needs. Carboplatin initiated. 1330: Carboplatin completed without s&s of adverse reaction. VSS. Port flushed with saline and Heparin. Port de-accessed. No bleeding. Covered with sterile 2x2 prophylactically. Pt. tolerated with no c/o. 1240: Pt. without c/o or needs. Up to bathroom to void. D/c'd amb. to home with jovan.
[2023-06-09 08:10] VITALS: BP 141/79; TEMP 36.3; O2SAT 98
[2023-06-09 08:17] VITALS: BP 119/68; PULSE 90; TEMP 36.3; O2SAT 98
[2023-06-09 08:42] LABS: Basophils Percent Auto 0.8 % (0.2-2.0); Eosinophils Percent Auto 0.5 % (0.9-7.0); Hematocrit 24.5 % (36.0-48.0); Hemoglobin 8.5 g/dL (12.0-16.0); Immature Granulocytes Abs Auto 0.02 10^3/uL (0.00-0.03); Immature Granulocytes Pct Auto 0.5 % (0.0-0.5); Lymphocytes Absolute Auto 2.5 10^3/uL (1.2-3.8); Lymphocytes Percent Auto 64.9 % (20.5-60.0); Mean Corpuscular HGB Conc 34.7 g/dL (29.9-35.2); Mean Corpuscular Hemoglobin 31.8 pg (26.7-34.0); Mean Corpuscular Volume 91.8 fL (81.0-99.0); Mean Platelet Volume 9.8 fL (9.5-13.5); Monocytes Absolute Auto 0.2 10^3/uL (0.3-0.8); Monocytes Percent Auto 4.4 % (1.7-12.0); Neutrophils Absolute Auto 1.1 10^3/uL (1.4-6.5); Neutrophils Percent Auto 28.9 % (43.0-75.0); Platelet Count 280 10^3/uL (150-450); Red Blood Count 2.67 10^6/uL (4.20-5.40); Red Cell Distribution Width 14.8 % (11.0-15.0); White Blood Count 3.9 10^3/uL (4.0-11.0)
[2023-06-09 08:58] LABS: Alanine Aminotransferase 34 U/L (14-59); Albumin Globulin Ratio 1.1; Albumin Level 3.4 g/dL (3.4-5.0); Alkaline Phosphatase 69 U/L (46-116); Aspartate Amino Transferase 22 U/L (15-37); BUN Creatinine Ratio 22.6; Bilirubin Total 0.6 mg/dL (0.2-1.0); Calcium 9.2 mg/dL (8.5-10.1); Carbon Dioxide 27.1 mmol/L (21.0-32.0); Chloride 100 mmol/L (98-107); Estimated GFR (African America >60 (>=60); Estimated GFR (Non-African Ame 54 (>=60); Globulin 3.2 g/dL; Glucose 114 mg/dL (74-106); Potassium 3.1 mmol/L (3.5-5.1); Sodium 140 mmol/L (136-145); Total Protein 6.6 g/dL (6.4-8.2)
[2023-06-09 09:06] LABS: Magnesium 1.6 mg/dL (1.8-2.4); Thyroid Stimulating Hormone 4.847 uIU/mL (0.358-3.740)
[2023-06-09] MEDS: ACETAMINOPHEN 325 MG TABLET 650 MG PO (10:07)
[2023-06-09] MEDS: DIPHENHYDRAMINE HCL 25 MG CAPSULE PO (10:07)
[2023-06-09] MEDS: 0.9 % SODIUM CHLORIDE 250 ML 10 ML IV (10:09)
[2023-06-09 10:25] VITALS: BP 141/79; PULSE 89; TEMP 36.3; O2SAT 98
[2023-06-09 11:08] VITALS: BP 111/68; PULSE 74; TEMP 36.3; O2SAT 100
--- NOTE | 2023-06-09 11:43 | PC.NURSE ---
0810: Pt. to [facility] amb. accompanied by jovan. Weight obtained. Seated in recliner. VSS. Using sterile technique, left ant. chest port accessed using 20 gauge Dawson needle from port pack. Flushes easily with good blood return. Covered with sterile opsite. Pt. tolerated with minimal c/o. Ordered blood work obtained and sent to lab. 0835: Dr. Hope in to see patient at chairside. Resulted labs provided. 0855: Chemo treatment held today due to low ANC. Pt. tearful. Reassurance and comfort provided. Notified pt. need for blood transfusion. Blood consent obtained.
--- NOTE | 2023-06-09 11:50 | PC.NURSE ---
1007: Pre-meds provided. See 1052: 1 unit PRBC initiated at this time. VSS.
--- NOTE | 2023-06-09 11:52 | PC.NURSE ---
1108: Tolerating blood transfusion without c/o. Denies needs. VSS
[2023-06-09 11:58] VITALS: BP 106/69; PULSE 78; TEMP 36.2; O2SAT 98
--- NOTE | 2023-06-09 12:13 | PC.NURSE ---
1213: Blood transfusion completed at this time without s&s of adverse reaction. VSS.
[2023-06-09] MEDS: MAGNESIUM SULFATE IN WATER 2 GM/50 ML PREMIX IV (12:25)
[2023-06-09] MEDS: POTASSIUM CHLORIDE 20 MEQ in 0.9 % SODIUM CHLORIDE 250 ML 130 MEQ IV (12:25)
--- NOTE | 2023-06-09 12:33 | PC.NURSE ---
1225: IV magnesium and potassium infusions initiated at this time. Pt. relays comfort. Denies needs.
--- NOTE | 2023-06-09 13:38 | PC.NURSE ---
1338: Pt. without c/o. IV magnesium completed. Ana Cristina remains at chairside.
[2023-06-09] MEDS: HEPARIN SODIUM (PORCINE) PF LOCK FLUSH 500 UNIT/5 ML SYRINGE IV (14:30)
[2023-06-09 14:38] VITALS: BP 106/68; PULSE 72; TEMP 36.6; O2SAT 98
--- NOTE | 2023-06-09 14:41 | PC.NURSE ---
1430: IV magnesium complete. Port flushed with saline and Heparin. Trace bleeding, Sterile 2x2 applied over site. VSS. Pt. denies c/o. Up to bathroom. 1435: Pt. d/c'd amb to home with jovan.
[2023-06-16 08:30] VITALS: BP 120/71; PULSE 74; TEMP 36.4; O2SAT 100
[2023-06-16] MEDS: 0.9 % SODIUM CHLORIDE 250 ML 30 ML IV (08:40)
[2023-06-16 09:01] LABS: Hematocrit 26.6 % (36.0-48.0); Hemoglobin 9.2 g/dL (12.0-16.0); Mean Corpuscular HGB Conc 34.6 g/dL (29.9-35.2); Mean Corpuscular Hemoglobin 32.1 pg (26.7-34.0); Mean Corpuscular Volume 92.7 fL (81.0-99.0); Mean Platelet Volume 8.7 fL (9.5-13.5); Platelet Count 250 10^3/uL (150-450); Red Blood Count 2.87 10^6/uL (4.20-5.40); White Blood Count 2.8 10^3/uL (4.0-11.0)
--- NOTE | 2023-06-16 09:16 | PC.NURSE ---
0830: Pt. to [facility] amb. accomanied by jovan. Weight obtained. Seated in recliner. VSS. Using sterile technique, left ant. chest port accessed using #20 gauge Dawson needle. Flushes easily with good blood return. Blood obtained and sent to lab. IV N.S. initiated at [facility].
[2023-06-16 09:28] LABS: Alanine Aminotransferase 33 U/L (14-59); Albumin Level 3.3 g/dL (3.4-5.0); Alkaline Phosphatase 67 U/L (46-116); Anion Gap 12.2; Aspartate Amino Transferase 21 U/L (15-37); BUN Creatinine Ratio 15.2; Bilirubin Total 0.7 mg/dL (0.2-1.0); Calcium 9.5 mg/dL (8.5-10.1); Carbon Dioxide 29.2 mmol/L (21.0-32.0); Chloride 103 mmol/L (98-107); Estimated GFR (African America >60 (>=60); Estimated GFR (Non-African Ame 59 (>=60); Globulin 3.2 g/dL; Glucose 93 mg/dL (74-106); Potassium 3.4 mmol/L (3.5-5.1); Sodium 141 mmol/L (136-145); Total Protein 6.5 g/dL (6.4-8.2)
[2023-06-16 09:32] LABS: Magnesium 1.6 mg/dL (1.8-2.4); Thyroid Stimulating Hormone 3.002 uIU/mL (0.358-3.740)
[2023-06-16 09:35] LABS: Atypical Lymphocytes Abs Man 0.05; Eosinophils Absolute Manual 0.05 10^3/uL (0.00-0.70); Lymphocytes Absolute Manual 1.54 10^3/uL (1.20-3.80); Monocytes Absolute Manual 0.44 10^3/uL (0.30-0.80); Segmented Neut Absolute Manual 0.67 10^3/uL (1.4-6.5)
[2023-06-16 09:36] LABS: Anisocytosis 1+; Hypochromasia 1+
--- NOTE | 2023-06-16 09:50 | PC.NURSE ---
0940: Labs reviewed with Dr. Hope. Awaiting further instruction regarding treatment.
[2023-06-16] MEDS: HEPARIN SODIUM (PORCINE) PF LOCK FLUSH 500 UNIT/5 ML SYRINGE IV (10:23)
[2023-06-16 10:34] LABS: Percent Iron Saturation 38.9 %
[2023-06-17] MEDS: FILGRASTIM-SNDZ 480 MCG/0.8 ML SYRINGE SUBQ (15:17)
[2023-06-17 15:33] VITALS: BP 148/72; PULSE 83; TEMP 36.4; O2SAT 98
--- NOTE | 2023-06-17 15:34 | PC.NURSE ---
1505: Pt. to [facility] amb. for ordered injection. VSS. Medicated with Zarxio SQ to RUE, see MAR. No bleeding to injection site. Pt. tolerated without c/o. 1525: Pt. without c/o. D/c'd amb. to home.
[2023-06-18] MEDS: FILGRASTIM-SNDZ 480 MCG/0.8 ML SYRINGE SUBQ (13:46)
[2023-06-18 14:54] VITALS: BP 123/74; PULSE 74; TEMP 36.4; O2SAT 96
--- NOTE | 2023-06-18 14:55 | PC.NURSE ---
1340 Arrival ambulatory to chair 1, here for injection. 1348 received injection as documented. 1350 released ambulatory
[2023-06-19] MEDS: FILGRASTIM-SNDZ 480 MCG/0.8 ML SYRINGE SUBQ (13:03)
[2023-06-23 08:36] VITALS: BP 132/83; PULSE 101; TEMP 36.6; O2SAT 98
[2023-06-23 08:40] VITALS: BP 132/88; PULSE 101; TEMP 36.4; O2SAT 98
[2023-06-23 08:59] LABS: Hematocrit 25.8 % (36.0-48.0); Hemoglobin 9.1 g/dL (12.0-16.0); Mean Corpuscular HGB Conc 35.3 g/dL (29.9-35.2); Mean Corpuscular Hemoglobin 32.9 pg (26.7-34.0); Mean Corpuscular Volume 93.1 fL (81.0-99.0); Mean Platelet Volume 9.1 fL (9.5-13.5); Platelet Count 77 10^3/uL (150-450); Red Blood Count 2.77 10^6/uL (4.20-5.40); Red Cell Distribution Width 17.8 % (11.0-15.0); White Blood Count 5.9 10^3/uL (4.0-11.0)
[2023-06-23 09:25] LABS: Alanine Aminotransferase 39 U/L (14-59); Albumin Globulin Ratio 1.1; Albumin Level 3.4 g/dL (3.4-5.0); Alkaline Phosphatase 91 U/L (46-116); Anion Gap 14.1; Aspartate Amino Transferase 35 U/L (15-37); BUN Creatinine Ratio 15.8; Bilirubin Total 1.2 mg/dL (0.2-1.0); Calcium 9.2 mg/dL (8.5-10.1); Carbon Dioxide 27.8 mmol/L (21.0-32.0); Chloride 102 mmol/L (98-107); Estimated GFR (African America >60 (>=60); Estimated GFR (Non-African Ame >60 (>=60); Globulin 3.2 g/dL; Glucose 127 mg/dL (74-106); Magnesium 1.7 mg/dL (1.8-2.4); Sodium 141 mmol/L (136-145); TSH W/ REFLEX FT4 3.464 uIU/mL (0.358-3.740); Total Protein 6.6 g/dL (6.4-8.2)
[2023-06-23 09:27] LABS: Potassium 2.9 mmol/L (3.5-5.1)
[2023-06-23 09:30] LABS: Band Neutrophils Absolute 0.2 10^3/uL (0.0-0.3); Segmented Neut Absolute Manual 2.59 10^3/uL (1.4-6.5)
[2023-06-23 09:31] LABS: Basophils Abs Manual 0.05 10^3/uL (0.00-0.10); Lymphocytes Absolute Manual 2.41 10^3/uL (1.20-3.80); Monocytes Absolute Manual 0.59 10^3/uL (0.30-0.80)
[2023-06-23] MEDS: POTASSIUM CHLORIDE 20 MEQ in 0.9 % SODIUM CHLORIDE 250 ML 130 MEQ IV (09:57)
[2023-06-23] MEDS: 0.9 % SODIUM CHLORIDE 250 ML 30 ML IV (09:57)
[2023-06-23] MEDS: DIPHENHYDRAMINE HCL IV (10:21)
[2023-06-23] MEDS: FAMOTIDINE 20 MG TABLET PO (10:21)
[2023-06-23] MEDS: [UNRECOGNIZED DRUG - OTHER] IV (10:21)
[2023-06-23] MEDS: DEXAMETHASONE SODIUM PHOSPHATE IV (10:21)
[2023-06-23] MEDS: MAGNESIUM SULFATE IV (10:53)
[2023-06-23] MEDS: SODIUM CHLORIDE 0.9% IV ×2 (10:53→11:26)
[2023-06-23] MEDS: PACLITAXEL IV (11:26)
[2023-06-23] MEDS: EPOETIN ALFA-EPBX 10,000 UNIT/ML VIAL 40000 UNIT SUBQ (12:48)
[2023-06-23 12:49] VITALS: BP 138/64; PULSE 78; TEMP 36.6; O2SAT 98
--- NOTE | 2023-06-23 14:18 | PC.NURSE ---
0840: Pt. to [facility] amb. Weight obtained. Seated in recliner. VSS. Using sterile technique, left ant. chest port accessed using 20 gauge Dawson needle. Flushes easily, able to aspirate blood easily when patient reclined and takes deep breath in and out. Labs obtained. Covered with opsite dressing from port kit. Pt. tolerated with minimal c/o discomfort. Given warm blanket and pillow. Declines ordering breakfast. Drinking ice water. Friend arrives and remains at bedside. 0910: Dr. Hope in to see pt. as scheduled 0940: Labs reviewed with Dr. Hope, O.K. to proceed with treatment. New orders given. 0957: IV KCL initiated as ordered. Pt. denies needs or c/o. 1021: IV Decadron and Benadryl initiated as ordered. See APR. 1053: Magnesium 2G ivpb initiated at this time. Cont. to drink water. Denies further needs. 1126: Paclitaxel infusion initiated. Pt. denies c/o or needs. 1131: Magnesium completed. Pt. without s&s of adverse reaction. 1155: Pt. resting quietly with eyes closed. Resps even and unlabored. 1230: Paclitaxel infused without s&s of adverse reaction. Pt. denies c/o pain, n/v or dyspnea. Port-a-cath flushed with saline and Heparin. Port de-accessed, covered with sterile 2x2. Pt. tolerated well. 1248: Medicated with Retacrit 4000 units sq x's 2 injection sites. No bleeding to sites. Pt. tolerated with min. c/o. 1249: Pt. without c/o. VSS. D/c'd amb. to home.
[2023-06-30 09:10] LABS: Basophils Percent Auto 0.6 % (0.2-2.0); Eosinophils Absolute Auto 0.1 10^3/uL (0.0-0.7); Eosinophils Percent Auto 1.5 % (0.9-7.0); Hemoglobin 7.6 g/dL (12.0-16.0); Immature Granulocytes Abs Auto 0.07 10^3/uL (0.00-0.03); Lymphocytes Absolute Auto 2.6 10^3/uL (1.2-3.8); Mean Corpuscular HGB Conc 35.3 g/dL (29.9-35.2); Mean Corpuscular Hemoglobin 33.2 pg (26.7-34.0); Mean Corpuscular Volume 93.9 fL (81.0-99.0); Mean Platelet Volume 10.6 fL (9.5-13.5); Monocytes Absolute Auto 0.4 10^3/uL (0.3-0.8); Monocytes Percent Auto 5.4 % (1.7-12.0); Neutrophils Absolute Auto 3.5 10^3/uL (1.4-6.5); Neutrophils Percent Auto 52.5 % (43.0-75.0); Platelet Count 128 10^3/uL (150-450); Red Blood Count 2.29 10^6/uL (4.20-5.40); Red Cell Distribution Width 17.6 % (11.0-15.0); White Blood Count 6.7 10^3/uL (4.0-11.0)
[2023-06-30 09:14] LABS: Hematocrit 21.5 % (36.0-48.0)
[2023-06-30 09:38] LABS: Alanine Aminotransferase 27 U/L (14-59); Albumin Globulin Ratio 1.1; Albumin Level 3.4 g/dL (3.4-5.0); Alkaline Phosphatase 78 U/L (46-116); Anion Gap 12.1; Aspartate Amino Transferase 18 U/L (15-37); BUN Creatinine Ratio 20.8; Bilirubin Total 0.9 mg/dL (0.2-1.0); Calcium 9.1 mg/dL (8.5-10.1); Carbon Dioxide 28.9 mmol/L (21.0-32.0); Chloride 101 mmol/L (98-107); Estimated GFR (African America >60 (>=60); Estimated GFR (Non-African Ame 58 (>=60); Globulin 3.1 g/dL; Glucose 97 mg/dL (74-106); Magnesium 1.5 mg/dL (1.8-2.4); Sodium 139 mmol/L (136-145); Thyroid Stimulating Hormone 4.919 uIU/mL (0.358-3.740); Total Protein 6.5 g/dL (6.4-8.2)
[2023-06-30] MEDS: EPOETIN ALFA 20,000 UNIT/2 ML VIAL 40000 UNIT SUBQ (10:14)
[2023-06-30] MEDS: SODIUM CHLORIDE 0.9% IV ×2 (10:28→12:10)
[2023-06-30] MEDS: MAGNESIUM SULFATE IV (10:28)
[2023-06-30] MEDS: POTASSIUM CHLORIDE 20 MEQ in 0.9 % SODIUM CHLORIDE 250 ML 130 MEQ IV (10:30)
[2023-06-30 10:32] LABS: Bilirubin Urine NEGATIVE (NEGATIVE); Blood Urine LARGE (NEGATIVE); Clarity Urine CLOUDY (CLEAR); Color Urine LT. YELLOW (YELLOW); Glucose Urine UA NEGATIVE (NEGATIVE); Ketones Urine NEGATIVE (NEGATIVE); Leukocyte Esterase Urine MODERATE (NEGATIVE); Nitrite Urine POSITIVE (NEGATIVE); Protein Urine 100 mg/dL (NEG/TRACE); Specific Gravity Urine 1.015 (1.005-1.025); Urobilinogen Urine 0.2 EU/dL (0.2-1.0); pH Urine 7.5 (5.0-9.0)
[2023-06-30] MEDS: DEXAMETHASONE SODIUM PHOSPHATE IV (11:44)
[2023-06-30] MEDS: [UNRECOGNIZED DRUG - OTHER] IV (11:44)
[2023-06-30] MEDS: DIPHENHYDRAMINE HCL IV (11:44)
[2023-06-30] MEDS: FAMOTIDINE 20 MG TABLET PO (11:51)
[2023-06-30 12:00] VITALS: BP 119/73; PULSE 86; TEMP 36.2; O2SAT 95
--- NOTE | 2023-06-30 12:09 | PC.NURSE ---
0845 Arrival amb. to chair 4 see documentation.
[2023-06-30] MEDS: PACLITAXEL IV (12:10)
[2023-06-30 13:18] VITALS: BP 122/78; PULSE 76; TEMP 36.6; O2SAT 100
[2023-06-30] MEDS: HEPARIN SODIUM (PORCINE) PF LOCK FLUSH 500 UNIT/5 ML SYRINGE IV (13:20)
--- NOTE | 2023-06-30 14:33 | PC.NURSE ---
1000: Pt. rests in chair. Denies needs or c/o. 1210: IV Taxol initiated at this time. Resting off and on with eyes closed.
--- NOTE | 2023-06-30 14:40 | PC.NURSE ---
1310: Chemo infusion completed without s&s of adverse reaction. Port flushed with saline and Heparin. Port de-accessed, trace bleeding to site. Bandaid applied. Pt. tolerated without c/o Up to bathroom to void. 1318: Pt. d/c'd amb. to home with jovan.
== END 2023-06-30 23:59 | disposition home or self-care (01) ==
LOC: INF 07:30
PROVIDERS: PCP Nurse Practitioner Family; Visit Provider Internal Medicine Hematology & Oncology
DX: Z51.11 Encounter for antineoplastic chemotherapy (principal); C50.311 Malignant neoplasm of lower-inner quadrant of right female breast; Z79.899 Other long term (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 therapy; D70.1 Agranulocytosis secondary to cancer chemotherapy; C77.9 Secondary and unspecified malignant neoplasm of lymph node, unspecified; Z79.818 Long term (current) use of other agents affecting estrogen receptors and estrogen levels; D64.81 Anemia due to antineoplastic chemotherapy; C77.3 Secondary and unspecified malignant neoplasm of axilla and upper limb lymph nodes; R11.2 Nausea with vomiting, unspecified; Z15.09 Genetic susceptibility to other malignant neoplasm; Z90.710 Acquired absence of both cervix and uterus; I10 Essential (primary) hypertension; J45.909 Unspecified asthma, uncomplicated; Z17.0 Estrogen receptor positive status [ER+]; G62.9 Polyneuropathy, unspecified; E87.6 Hypokalemia
CPT/HCPCS: 36430; 36591; 80053; 81003; 82728; 83540; 83550; 83735; 84443; 85007; 85025; 85027; 86850; 86900; 86901; 87086; 87150; 87186; 96365; 96366; 96367; 96368; 96372; 96375; 96413; 96415; 96417; J0885; G0463; J1100; J1453; J2469; J3480; J9045; J9267; J9271; P9016; Q5101; Q5106

== ENCOUNTER 2023-07-10 09:20 | Outpatient (OUT) | payer OTHER, SELFPAY ==
--- NOTE | 2023-07-10 09:24 | US_ITS ---
Patient Name: IKE JONES MR#: [id number] : 1970 Exam Date: 07/10/2023 Ordering Doctor: Jessica Hope RADIOLOGY REPORT PROCEDURE: US BREAST RT COMPLETE COMPARISON: US BREAST VAC BX W/ CLIP RT, 03/26/2023. US BREAST RT LIMITED, 03/20/2023. INDICATIONS: Malignant neoplasm of lower-inner quadrant right breast TECHNIQUE: Breast ultrasound was performed, with evaluation focusing only on specific areas of concern. FINDINGS: DIAGNOSTIC CATEGORY 6--KNOWN BIOPSY PROVEN MALIGNANCY: RIGHT BREAST Identified in the right breast is a 2.1 x 2.1 x 2.8 cm heterogeneous angular hypoechogenic mass. This has previously been biopsied and determined to be malignant. This lesion is slightly smaller in size compared to previous exam RECOMMENDATIONS: CLINICAL EVALUATION. PLEASE NOTE: A NORMAL ULTRASOUND EXAMINATION DOES NOT EXCLUDE THE POSSIBILITY OF BREAST CANCER. A CLINICALLY SUSPICIOUS PALPABLE LUMP SHOULD BE BIOPSIED. Dictated by: Vaibhav Lopez MD on 07/13/2023 at 08:36 Approved by: Vaibhav Lopez MD on 07/13/2023 at 08:54
== END 2023-07-10 09:21 | disposition home or self-care (01) ==
LOC: US 09:20
PROVIDERS: PCP Nurse Practitioner Family; Visit Provider Internal Medicine Hematology & Oncology
DX: C50.311 Malignant neoplasm of lower-inner quadrant of right female breast (principal); Z79.899 Other long term (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 therapy; D70.1 Agranulocytosis secondary to cancer chemotherapy; R11.2 Nausea with vomiting, unspecified; C77.9 Secondary and unspecified malignant neoplasm of lymph node, unspecified; Z15.09 Genetic susceptibility to other malignant neoplasm; Z79.818 Long term (current) use of other agents affecting estrogen receptors and estrogen levels; D64.81 Anemia due to antineoplastic chemotherapy; C77.3 Secondary and unspecified malignant neoplasm of axilla and upper limb lymph nodes; Z51.12 Encounter for antineoplastic immunotherapy
CPT/HCPCS: 76641

== ENCOUNTER 2023-07-28 07:33 | Outpatient (RCR) | payer OTHER, SELFPAY ==
[2023-07-07 08:16] VITALS: BP 107/69; PULSE 90; TEMP 36.3; O2SAT 95
[2023-07-07 08:41] LABS: Basophils Percent Auto 0.6 % (0.2-2.0); Eosinophils Absolute Auto 0.1 10^3/uL (0.0-0.7); Eosinophils Percent Auto 1.5 % (0.9-7.0); Immature Granulocytes Abs Auto 0.09 10^3/uL (0.00-0.03); Immature Granulocytes Pct Auto 1.9 % (0.0-0.5); Lymphocytes Absolute Auto 2.9 10^3/uL (1.2-3.8); Lymphocytes Percent Auto 63.5 % (20.5-60.0); Mean Corpuscular HGB Conc 34.9 g/dL (29.9-35.2); Mean Corpuscular Hemoglobin 34.3 pg (26.7-34.0); Mean Corpuscular Volume 98.3 fL (81.0-99.0); Mean Platelet Volume 9.7 fL (9.5-13.5); Monocytes Absolute Auto 0.3 10^3/uL (0.3-0.8); Monocytes Percent Auto 5.8 % (1.7-12.0); Neutrophils Absolute Auto 1.2 10^3/uL (1.4-6.5); Neutrophils Percent Auto 26.7 % (43.0-75.0); Platelet Count 434 10^3/uL (150-450); Red Blood Count 2.33 10^6/uL (4.20-5.40); Red Cell Distribution Width 19.5 % (11.0-15.0); White Blood Count 4.6 10^3/uL (4.0-11.0)
[2023-07-07 08:44] LABS: Hematocrit 22.9 % (36.0-48.0)
[2023-07-07 08:57] LABS: Alanine Aminotransferase 31 U/L (14-59); Albumin Globulin Ratio 1.1; Albumin Level 3.5 g/dL (3.4-5.0); Alkaline Phosphatase 71 U/L (46-116); Anion Gap 12.6; Aspartate Amino Transferase 17 U/L (15-37); BUN Creatinine Ratio 17.3; Bilirubin Total 0.8 mg/dL (0.2-1.0); Calcium 9.6 mg/dL (8.5-10.1); Carbon Dioxide 26.9 mmol/L (21.0-32.0); Chloride 103 mmol/L (98-107); Estimated GFR (African America 42 (>=60); Estimated GFR (Non-African Ame 35 (>=60); Globulin 3.1 g/dL; Glucose 93 mg/dL (74-106); Potassium 3.5 mmol/L (3.5-5.1); Sodium 139 mmol/L (136-145); Total Protein 6.6 g/dL (6.4-8.2)
[2023-07-07 09:07] LABS: Magnesium 1.4 mg/dL (1.8-2.4); TSH W/ REFLEX FT4 3.366 uIU/mL (0.358-3.740)
--- NOTE | 2023-07-07 09:10 | PC.NURSE ---
0816: Pt. to [facility] amb. for chemo. Weight obtained. Seated in recliner. VSS. Using sterile technique, left ant. chest port accessed using 20 Dawson needle. Flushes easily and able to aspirate blood easily. Blood obtained for ordered labs. Pt. tolerated without c/o. Fiancee at bedside. 0840: Dr Hope to chairside and reviews labs with patient.
[2023-07-07 09:11] VITALS: BP 107/65; PULSE 90; TEMP 36.3; O2SAT 95
[2023-07-07] MEDS: PALONOSETRON HCL 0.25 MG/5 ML VIAL IV (09:30)
[2023-07-07] MEDS: FAMOTIDINE 20 MG TABLET PO (09:30)
[2023-07-07] MEDS: EPOETIN ALFA-EPBX 20,000 UNIT/ML VIAL 40000 UNIT SUBQ (09:39)
[2023-07-07] MEDS: DIPHENHYDRAMINE HCL IV (09:40)
[2023-07-07] MEDS: [UNRECOGNIZED DRUG - OTHER] IV (09:40)
[2023-07-07] MEDS: DEXAMETHASONE SODIUM PHOSPHATE IV (09:40)
[2023-07-07] MEDS: PEMBROLIZUMAB 200 MG in 0.9 % SODIUM CHLORIDE 100 ML 216 MG IV (09:43)
[2023-07-07] MEDS: MAGNESIUM SULFATE 2 GM in 0.9 % SODIUM CHLORIDE 100 ML IV (10:18)
[2023-07-07] MEDS: 0.9 % SODIUM CHLORIDE 250 ML 10 ML IV (10:22)
[2023-07-07] MEDS: PACLITAXEL IV (10:46)
[2023-07-07] MEDS: SODIUM CHLORIDE 0.9% IV ×2 (10:46→11:45)
--- NOTE | 2023-07-07 11:33 | PC.NURSE ---
0930: Pre-meds initiated at this time. Eating breakfast. Denies needs or c/o. 0943: IV Ketruda initiated as ordered. Port site maintained. 1046: Paclitaxel infusing at this time. Pt. drowsy, sleeping off and on. Appears to be without s&s of distress or discomfort.
[2023-07-07] MEDS: CARBOPLATIN IV (11:45)
[2023-07-07 11:46] VITALS: BP 93/56; PULSE 89; TEMP 37.1; O2SAT 93
[2023-07-07 12:30] VITALS: BP 100/66; PULSE 85; TEMP 36.8; O2SAT 94
[2023-07-07] MEDS: HEPARIN SODIUM (PORCINE) PF LOCK FLUSH 500 UNIT/5 ML SYRINGE IV (12:30)
--- NOTE | 2023-07-07 12:40 | PC.NURSE ---
1146: Paclitaxel completed at this time. VSS. Pt. denies needs or c/o. Carboplatin initiated at this time.
--- NOTE | 2023-07-07 12:44 | PC.NURSE ---
1230: Treatment completed without s&s of adverse reaction. VSS. Port flushed with saline and Heparin, port de-accessed. No bleeding to site. Covered with cotton ball and secured.
--- NOTE | 2023-07-07 12:46 | PC.NURSE ---
1233: Pt. d/c'd amb. to home with jovan. Tolerated all without c/o.
[2023-07-08] MEDS: FILGRASTIM-SNDZ 480 MCG/0.8 ML SYRINGE SUBQ (11:50)
--- NOTE | 2023-07-08 12:03 | PC.NURSE ---
1148: Pt. to [facility] amb. per self. Pt. to recliner chair. Using sterile technique, left ant. chest port accessed. See documentation. Flushes easily. Blood aspirates after re-positioning. Blood obtained for ordered CBC. Port flushed with saline, port de-accessed. No bleeding. Covered with dressing prophylactically. Pt tolerated without c/o. Medicated with Zarxio 480mcg sq to right arm as ordered. No bleeding to site. Pt. tolerated with no c/o. U/A obtained. 1200: Pt. d/c'd amb. back to work.
[2023-07-08 12:16] LABS: Basophils Percent Auto 0.5 % (0.2-2.0); Hemoglobin 7.7 g/dL (12.0-16.0); Immature Granulocytes Abs Auto 0.11 10^3/uL (0.00-0.03); Immature Granulocytes Pct Auto 2.9 % (0.0-0.5); Lymphocytes Absolute Auto 0.7 10^3/uL (1.2-3.8); Lymphocytes Percent Auto 17.3 % (20.5-60.0); Mean Corpuscular HGB Conc 34.1 g/dL (29.9-35.2); Mean Corpuscular Hemoglobin 34.1 pg (26.7-34.0); Monocytes Absolute Auto 0.3 10^3/uL (0.3-0.8); Monocytes Percent Auto 8.2 % (1.7-12.0); Neutrophils Absolute Auto 2.7 10^3/uL (1.4-6.5); Neutrophils Percent Auto 71.1 % (43.0-75.0); Platelet Count 493 10^3/uL (150-450); Red Blood Count 2.26 10^6/uL (4.20-5.40); Red Cell Distribution Width 19.9 % (11.0-15.0); White Blood Count 3.8 10^3/uL (4.0-11.0)
[2023-07-08 12:22] LABS: Hematocrit 22.6 % (36.0-48.0)
[2023-07-08 13:30] LABS: Bilirubin Urine NEGATIVE (NEGATIVE); Blood Urine NEGATIVE (NEGATIVE); Clarity Urine CLEAR (CLEAR); Color Urine YELLOW (YELLOW); Glucose Urine UA NEGATIVE (NEGATIVE); Ketones Urine NEGATIVE (NEGATIVE); Leukocyte Esterase Urine NEGATIVE (NEGATIVE); Nitrite Urine NEGATIVE (NEGATIVE); Protein Urine TRACE mg/dL (NEG/TRACE); Specific Gravity Urine >=1.030 (1.005-1.025); Urobilinogen Urine 0.2 EU/dL (0.2-1.0); pH Urine 5.5 (5.0-9.0)
[2023-07-09] MEDS: FILGRASTIM-SNDZ 480 MCG/0.8 ML SYRINGE SUBQ (11:48)
[2023-07-09] MEDS: HEPARIN SODIUM (PORCINE) PF LOCK FLUSH 500 UNIT/5 ML SYRINGE IV (11:59)
--- NOTE | 2023-07-09 12:00 | PC.NURSE ---
1145 Arrrival ambulatory to chair 1. alert oriented. states she is fatigued today. left chest port accessed using sterile technique, #20 ga lemus needle utilized, able to get good blood return when reclined in recliner, 10 ml waste, lab be and sent to lab, port flushed with 20 ml of ns followed by heplock flush. deaccessed port, tolerated well. 1150 SQ injection as ordered in rt upper arm, tolerated well 1200 Released ambulatory
[2023-07-09 12:02] LABS: Hemoglobin 7.8 g/dL (12.0-16.0); Mean Corpuscular HGB Conc 33.5 g/dL (29.9-35.2); Mean Corpuscular Hemoglobin 34.1 pg (26.7-34.0); Mean Corpuscular Volume 101.7 fL (81.0-99.0); Mean Platelet Volume 9.6 fL (9.5-13.5); Platelet Count 413 10^3/uL (150-450); Red Blood Count 2.29 10^6/uL (4.20-5.40); Red Cell Distribution Width 20.2 % (11.0-15.0); White Blood Count 5.8 10^3/uL (4.0-11.0)
[2023-07-09 12:06] LABS: Hematocrit 23.3 % (36.0-48.0)
[2023-07-09 12:26] LABS: Band Neutrophils Absolute 0.1 10^3/uL (0.0-0.3); Lymphocytes Absolute Manual 0.75 10^3/uL (1.20-3.80); Monocytes Absolute Manual 0.23 10^3/uL (0.30-0.80); Segmented Neut Absolute Manual 4.69 10^3/uL (1.4-6.5)
[2023-07-09 12:27] LABS: Anisocytosis 2+
[2023-07-09 12:28] LABS: Macrocytosis 1+
[2023-07-10 10:00] VITALS: BP 145/95; PULSE 100; TEMP 36.6; O2SAT 100
[2023-07-10 10:44] LABS: Hemoglobin 8.1 g/dL (12.0-16.0); Mean Corpuscular HGB Conc 33.8 g/dL (29.9-35.2); Mean Corpuscular Hemoglobin 34.3 pg (26.7-34.0); Mean Corpuscular Volume 101.7 fL (81.0-99.0); Mean Platelet Volume 9.8 fL (9.5-13.5); Platelet Count 428 10^3/uL (150-450); Red Blood Count 2.36 10^6/uL (4.20-5.40); Red Cell Distribution Width 20.2 % (11.0-15.0); White Blood Count 6.6 10^3/uL (4.0-11.0)
--- NOTE | 2023-07-10 10:54 | PC.NURSE ---
1000: Pt. to [facility] for daily injection. Seated in recliner. VSS. Lab draw done peripherally per this RN, pt. tolerated without c/o. Medicated with Zarxio SQ to left upper arm. No bleeding to site. Denies c/o discomfort with injection. 1013: Pt. d/c'd amb. to home.
[2023-07-10] MEDS: FILGRASTIM-SNDZ 480 MCG/0.8 ML SYRINGE SUBQ (10:57)
[2023-07-10 11:11] LABS: Alanine Aminotransferase 30 U/L (14-59); Albumin Globulin Ratio 1.2; Albumin Level 3.8 g/dL (3.4-5.0); Alkaline Phosphatase 68 U/L (46-116); Anion Gap 13.7; Aspartate Amino Transferase 18 U/L (15-37); BUN Creatinine Ratio 27.5; Bilirubin Total 1.4 mg/dL (0.2-1.0); Calcium 9.2 mg/dL (8.5-10.1); Carbon Dioxide 26.6 mmol/L (21.0-32.0); Chloride 104 mmol/L (98-107); Estimated GFR (African America >60 (>=60); Estimated GFR (Non-African Ame >60 (>=60); Globulin 3.1 g/dL; Glucose 97 mg/dL (74-106); Potassium 3.3 mmol/L (3.5-5.1); Sodium 141 mmol/L (136-145); Total Protein 6.9 g/dL (6.4-8.2)
[2023-07-10 11:17] LABS: Band Neutrophils Absolute 0.4 10^3/uL (0.0-0.3); Lymphocytes Absolute Manual 1.91 10^3/uL (1.20-3.80); Monocytes Absolute Manual 0.13 10^3/uL (0.30-0.80); Segmented Neut Absolute Manual 4.15 10^3/uL (1.4-6.5)
[2023-07-10 11:23] LABS: Anisocytosis 1+
[2023-07-10 11:25] LABS: Macrocytosis 1+
[2023-07-13] MEDS: FILGRASTIM-SNDZ 480 MCG/0.8 ML SYRINGE SUBQ (12:00)
[2023-07-13 12:11] LABS: Hemoglobin 7.4 g/dL (12.0-16.0); Mean Corpuscular HGB Conc 34.4 g/dL (29.9-35.2); Mean Corpuscular Hemoglobin 35.2 pg (26.7-34.0); Mean Corpuscular Volume 102.4 fL (81.0-99.0); Mean Platelet Volume 9.5 fL (9.5-13.5); Platelet Count 353 10^3/uL (150-450); White Blood Count 7.1 10^3/uL (4.0-11.0)
[2023-07-13 12:13] LABS: Hematocrit 21.5 % (36.0-48.0)
[2023-07-13 12:21] LABS: Anisocytosis 1+; Band Neutrophils Absolute 0.4 10^3/uL (0.0-0.3); Basophils Abs Manual 0.07 10^3/uL (0.00-0.10); Eosinophils Absolute Manual 0.14 10^3/uL (0.00-0.70); Lymphocytes Absolute Manual 2.41 10^3/uL (1.20-3.80); Macrocytosis 1+; Metamyelocytes Absolute Manual 0.14; Monocytes Absolute Manual 0.71 10^3/uL (0.30-0.80); Segmented Neut Absolute Manual 3.26 10^3/uL (1.4-6.5)
[2023-07-13 12:29] LABS: Alanine Aminotransferase 28 U/L (14-59); Albumin Globulin Ratio 1.4; Albumin Level 3.6 g/dL (3.4-5.0); Alkaline Phosphatase 70 U/L (46-116); Anion Gap 12.2; Aspartate Amino Transferase 18 U/L (15-37); BUN Creatinine Ratio 22.9; Bilirubin Direct 0.1 mg/dL (0.0-0.2); Bilirubin Total 0.5 mg/dL (0.2-1.0); Calcium 8.9 mg/dL (8.5-10.1); Carbon Dioxide 25.8 mmol/L (21.0-32.0); Chloride 105 mmol/L (98-107); Estimated GFR (African America >60 (>=60); Estimated GFR (Non-African Ame >60 (>=60); Globulin 2.5 g/dL; Glucose 98 mg/dL (74-106); Sodium 139 mmol/L (136-145); Total Protein 6.1 g/dL (6.4-8.2)
[2023-07-13 12:42] VITALS: BP 104/70; PULSE 86; TEMP 36.6; O2SAT 86
--- NOTE | 2023-07-13 12:46 | PC.NURSE ---
1130 Arrival ambulatory. Attempted port draw from left chest port, after much manipulation and flushing able to get a sluggish blood return. flushed with normal saline and hep lock. 1150 labs drawn peripherally. and sent to lab. Injection SQ as ordered rt upper arm. 1200 Released ambulatory.
[2023-07-14] VITALS (7 sets, daily range): BP systolic 106–122; BP diastolic 68–78; PULSE 77–97; TEMP 36.6–37.1; O2SAT 95–97
[2023-07-14 08:49] LABS: Hemoglobin 7.3 g/dL (12.0-16.0); Mean Corpuscular HGB Conc 33.5 g/dL (29.9-35.2); Mean Corpuscular Hemoglobin 35.1 pg (26.7-34.0); Mean Corpuscular Volume 104.8 fL (81.0-99.0); Mean Platelet Volume 9.3 fL (9.5-13.5); Platelet Count 338 10^3/uL (150-450); Red Blood Count 2.08 10^6/uL (4.20-5.40); Red Cell Distribution Width 20.5 % (11.0-15.0); White Blood Count 21.1 10^3/uL (4.0-11.0)
[2023-07-14 08:52] LABS: Hematocrit 21.8 % (36.0-48.0)
[2023-07-14] MEDS: ACETAMINOPHEN 325 MG TABLET 650 MG PO (08:55)
[2023-07-14] MEDS: DIPHENHYDRAMINE HCL 25 MG CAPSULE PO (09:00)
[2023-07-14 09:03] LABS: Alanine Aminotransferase 28 U/L (14-59); Albumin Globulin Ratio 1.1; Albumin Level 3.2 g/dL (3.4-5.0); Alkaline Phosphatase 77 U/L (46-116); Anion Gap 11.9; Aspartate Amino Transferase 22 U/L (15-37); BUN Creatinine Ratio 21.7; Bilirubin Direct 0.1 mg/dL (0.0-0.2); Bilirubin Total 0.6 mg/dL (0.2-1.0); Calcium 9.2 mg/dL (8.5-10.1); Carbon Dioxide 28.9 mmol/L (21.0-32.0); Chloride 106 mmol/L (98-107); Estimated GFR (African America >60 (>=60); Estimated GFR (Non-African Ame >60 (>=60); Globulin 2.9 g/dL; Glucose 85 mg/dL (74-106); Potassium 3.8 mmol/L (3.5-5.1); Sodium 143 mmol/L (136-145); Total Protein 6.1 g/dL (6.4-8.2)
[2023-07-14] MEDS: 0.9 % SODIUM CHLORIDE 250 ML 30 ML IV ×2 (09:05→10:38)
--- NOTE | 2023-07-14 09:12 | PC.NURSE ---
0830: Pt. to [facility] amb. accompanied by jovan. Weight obtained. Seated in recliner. Relays dyspnea with exertion. VSS. Using sterile technique, left ant. chest port accessed usint 20 gauge Dawson needle. Flushes easily. Able to aspirate blood easily after flushing several time with saline. Blood obtained for ordered labs. Pt. tolerated with minimal c/o pain. Informed pt. of current Hgb and need for PRBC transfusion. Pt. relays understanding. Pt to exam room for Dr. Hope's scheduled appt. 0851: 1 unit PRBC initiated at this time. 0906: Tolerating blood without c/o. VSS.
[2023-07-14 09:13] LABS: Band Neutrophils Absolute 1.5 10^3/uL (0.0-0.3); Monocytes Absolute Manual 1.89 10^3/uL (0.30-0.80); Segmented Neut Absolute Manual 12.44 10^3/uL (1.4-6.5)
[2023-07-14 09:14] LABS: Atypical Lymphocytes Abs Man 1.05; Basophils Abs Manual 0.21 10^3/uL (0.00-0.10); Lymphocytes Absolute Manual 3.58 10^3/uL (1.20-3.80)
[2023-07-14 09:15] LABS: Myelocytes Absolute Manual 0.42
[2023-07-14 09:16] LABS: Poikilocytosis 1+
[2023-07-14 09:17] LABS: Anisocytosis 1+; Tear Drop Cells 1+
--- NOTE | 2023-07-14 10:05 | PC.NURSE ---
0955: Cont. to tolerate PRBC infusion without s&s of adverse reaction. Breakfast tray ordered.
[2023-07-14] MEDS: EPOETIN ALFA-EPBX 20,000 UNIT/ML VIAL 40000 UNIT SUBQ (10:20)
[2023-07-14] MEDS: FAMOTIDINE 20 MG TABLET PO (10:20)
[2023-07-14] MEDS: DEXAMETHASONE SODIUM PHOSPHATE IV (10:35)
[2023-07-14] MEDS: [UNRECOGNIZED DRUG - OTHER] IV (10:35)
[2023-07-14] MEDS: DIPHENHYDRAMINE HCL IV (10:35)
[2023-07-14] MEDS: PACLITAXEL IV (10:58)
[2023-07-14] MEDS: SODIUM CHLORIDE 0.9% IV (10:58)
--- NOTE | 2023-07-14 11:18 | PC.NURSE ---
1031: PRBC infusion completed at this time without adverse reaction. Pt. denies c/o. Pre-chemo meds initiated at this time, see 1057: Pre-meds completed. IV Paclitaxel initiate as ordered. Pt. attempts to sleep. Ana Cristina at chairside.
--- NOTE | 2023-07-14 11:33 | PC.NURSE ---
Resting quietly with eyes closed. Resps even and unlabored. Appears to be without s&s of distress or discomfort.
[2023-07-14] MEDS: HEPARIN SODIUM (PORCINE) PF LOCK FLUSH 500 UNIT/5 ML SYRINGE IV (12:00)
--- NOTE | 2023-07-14 12:12 | PC.NURSE ---
1200: IV Paclitaxel completed at this time without s&s of adverse reaction. VSS. Port flushed with saline and Heparin. Port de-accessed, trace bleeding. Covered with sterile 2x2 dressing. Pt. tolerated without c/o. 1208: Pt. d/c'd amb. to home with jovan.
[2023-07-21 08:15] VITALS: BP 136/83; PULSE 94; TEMP 36.6; O2SAT 97
[2023-07-21 08:24] VITALS: BP 136/83; PULSE 94; TEMP 36.6; O2SAT 97
[2023-07-21 08:40] LABS: Basophils Absolute Auto 0.1 10^3/uL (0.0-0.1); Basophils Percent Auto 1.4 % (0.2-2.0); Eosinophils Percent Auto 0.3 % (0.9-7.0); Hematocrit 24.6 % (36.0-48.0); Hemoglobin 8.3 g/dL (12.0-16.0); Immature Granulocytes Abs Auto 0.04 10^3/uL (0.00-0.03); Immature Granulocytes Pct Auto 1.1 % (0.0-0.5); Lymphocytes Absolute Auto 1.9 10^3/uL (1.2-3.8); Mean Corpuscular HGB Conc 33.7 g/dL (29.9-35.2); Mean Corpuscular Hemoglobin 34.2 pg (26.7-34.0); Mean Corpuscular Volume 101.2 fL (81.0-99.0); Monocytes Absolute Auto 0.4 10^3/uL (0.3-0.8); Monocytes Percent Auto 9.6 % (1.7-12.0); Neutrophils Absolute Auto 1.3 10^3/uL (1.4-6.5); Neutrophils Percent Auto 36.6 % (43.0-75.0); Platelet Count 170 10^3/uL (150-450); Red Blood Count 2.43 10^6/uL (4.20-5.40); Red Cell Distribution Width 20.5 % (11.0-15.0); White Blood Count 3.7 10^3/uL (4.0-11.0)
[2023-07-21 08:54] LABS: Alanine Aminotransferase 36 U/L (14-59); Albumin Globulin Ratio 1.1; Albumin Level 3.4 g/dL (3.4-5.0); Alkaline Phosphatase 72 U/L (46-116); Anion Gap 12.2; Aspartate Amino Transferase 20 U/L (15-37); BUN Creatinine Ratio 18.3; Bilirubin Total 0.8 mg/dL (0.2-1.0); Calcium 9.4 mg/dL (8.5-10.1); Carbon Dioxide 28.3 mmol/L (21.0-32.0); Chloride 103 mmol/L (98-107); Estimated GFR (African America >60 (>=60); Estimated GFR (Non-African Ame >60 (>=60); Globulin 3.1 g/dL; Glucose 95 mg/dL (74-106); Potassium 3.5 mmol/L (3.5-5.1); Sodium 140 mmol/L (136-145); Total Protein 6.5 g/dL (6.4-8.2)
--- NOTE | 2023-07-21 08:56 | PC.NURSE ---
0815: Pt. to [facility] amb. accompanied by jovan. Wt. obtained. Seated in recliner. VSS. Using sterile technique, left ant. chest port accessed per. this RN. Flushes easily with good blood return. Blood obtained for ordered labs. Dawson needle covered with large opsite dressing. Pt. tolerated all without c/o. 0840: Dr. Hope in to see pt. at chairside for scheduled office visit.
--- NOTE | 2023-07-21 09:26 | PC.NURSE ---
0900: Breakfast tray provided.
[2023-07-21] MEDS: 0.9 % SODIUM CHLORIDE 250 ML 30 ML IV (09:30)
[2023-07-21 09:53] VITALS: BP 136/83
[2023-07-21] MEDS: FAMOTIDINE 20 MG TABLET PO (09:53)
[2023-07-21] MEDS: BUMETANIDE 1 MG/4 ML VIAL 0.5 MG IVP (09:53)
[2023-07-21] MEDS: [UNRECOGNIZED DRUG - OTHER] IV (09:54)
[2023-07-21] MEDS: DIPHENHYDRAMINE HCL IV (09:54)
[2023-07-21] MEDS: DEXAMETHASONE SODIUM PHOSPHATE IV (09:54)
[2023-07-21] MEDS: EPOETIN ALFA-EPBX 20,000 UNIT/ML VIAL 40000 UNIT SUBQ (09:54)
[2023-07-21] MEDS: PACLITAXEL IV (10:22)
[2023-07-21] MEDS: SODIUM CHLORIDE 0.9% IV (10:22)
--- NOTE | 2023-07-21 10:54 | PC.NURSE ---
0953: Labs WNL to administer chemo. Pre-meds initiated at this time. See documentation. IV Bumex 0.5mg administered as ordered x's 1. 1022: IV Paclitaxel initiated at this time. Ice packs applied to bilat. hands and feet for neuropathy symptoms. 1048: Up to bathroom. Voids 500cc clear, yellow urine. Returns to chair. Ice pack re-applied. Denies needs or c/o.
--- NOTE | 2023-07-21 11:11 | PC.NURSE ---
1111: Pt. resting quietly with eyes closed. Resps. even and unlabored. IV Taxol cont. infusing. Fiancee at bedside.
[2023-07-21 11:30] VITALS: BP 118/66; PULSE 82; TEMP 36.6; O2SAT 95
[2023-07-21] MEDS: HEPARIN SODIUM (PORCINE) PF LOCK FLUSH 500 UNIT/5 ML SYRINGE IV (11:30)
--- NOTE | 2023-07-21 12:00 | PC.NURSE ---
1130: IV Taxol infused without s&s of adverse reaction. VSS. Port flushed with saline and Heparin. Port de-accessed, covered with sterile dressing. Up to bathroom to void. 1138: Voided 550cc clear yellow urine. 1145: D/c'd amb to home with carlos.
--- NOTE | 2023-07-21 12:06 | PC.NURSE ---
Pt. d/c'd amb. to home with jovan.
--- NOTE | 2023-07-21 12:07 | PC.NURSE ---
1040: Pt. given chemo education on next cycle of chemotherapy. Questions addressed. Pt. relays understanding.
[2023-07-28 08:10] VITALS: BP 116/72; PULSE 91; TEMP 36.6; O2SAT 96
[2023-07-28 08:37] LABS: Hematocrit 25.8 % (36.0-48.0); Hemoglobin 8.8 g/dL (12.0-16.0); Mean Corpuscular HGB Conc 34.1 g/dL (29.9-35.2); Mean Corpuscular Hemoglobin 34.9 pg (26.7-34.0); Mean Corpuscular Volume 102.4 fL (81.0-99.0); Mean Platelet Volume 9.7 fL (9.5-13.5); Platelet Count 179 10^3/uL (150-450); Red Blood Count 2.52 10^6/uL (4.20-5.40); Red Cell Distribution Width 20.1 % (11.0-15.0)
[2023-07-28 08:53] LABS: Alanine Aminotransferase 29 U/L (14-59); Albumin Globulin Ratio 1.2; Albumin Level 3.5 g/dL (3.4-5.0); Alkaline Phosphatase 80 U/L (46-116); Anion Gap 11.2; Aspartate Amino Transferase 23 U/L (15-37); BUN Creatinine Ratio 16.8; Bilirubin Total 0.8 mg/dL (0.2-1.0); Calcium 9.1 mg/dL (8.5-10.1); Chloride 103 mmol/L (98-107); Estimated GFR (African America >60 (>=60); Estimated GFR (Non-African Ame 58 (>=60); Glucose 97 mg/dL (74-106); Potassium 3.2 mmol/L (3.5-5.1); Sodium 140 mmol/L (136-145); Total Protein 6.5 g/dL (6.4-8.2)
[2023-07-28 09:01] LABS: Thyroid Stimulating Hormone 4.283 uIU/mL (0.358-3.740)
--- NOTE | 2023-07-28 09:03 | PC.NURSE ---
0810: Pt. to [facility] amb. accompanied by jovan. Weight obtained. Seated in recliner. VSS. Notable edema to bilat. lower ext. Using sterile technique, left ant. chest port accessed easily, see documentation. Blood obtained for ordered labs. Dr. Hope in to see pt. for scheduled appt.
[2023-07-28 09:14] LABS: Segmented Neut Absolute Manual 1.72 10^3/uL (1.4-6.5)
[2023-07-28 09:15] LABS: Anisocytosis 2+; Basophils Abs Manual 0.12 10^3/uL (0.00-0.10); Eosinophils Absolute Manual 0.08 10^3/uL (0.00-0.70); Lymphocytes Absolute Manual 1.92 10^3/uL (1.20-3.80); Monocytes Absolute Manual 0.12 10^3/uL (0.30-0.80)
[2023-07-28 09:28] LABS: Magnesium 1.4 mg/dL (1.8-2.4)
[2023-07-28] MEDS: PALONOSETRON HCL 0.25 MG/5 ML VIAL IV (10:03)
[2023-07-28] MEDS: DEXAMETHASONE SODIUM PHOSPHATE 8 MG in 0.9 % SODIUM CHLORIDE 100 ML 302.399999999999977 MG IV (10:04)
[2023-07-28] MEDS: EPOETIN ALFA-EPBX 20,000 UNIT/ML VIAL 40000 UNIT SUBQ (10:12)
[2023-07-28] MEDS: 0.9 % SODIUM CHLORIDE 250 ML 30 ML IV (10:16)
[2023-07-28] MEDS: POTASSIUM CHLORIDE 20 MEQ in 0.9 % SODIUM CHLORIDE 250 ML 130 MEQ IV (10:35)
[2023-07-28] MEDS: PEMBROLIZUMAB 200 MG in 0.9 % SODIUM CHLORIDE 100 ML 216 MG IV (11:22)
[2023-07-28] MEDS: LEUPROLIDE ACETATE 22.5 MG IM (12:17)
[2023-07-28] MEDS: SODIUM CHLORIDE 0.9% IV (12:20)
[2023-07-28] MEDS: CYCLOPHOSPHAMIDE IV (12:20)
[2023-07-28] MEDS: MAGNESIUM SULFATE IN WATER 2 GM/50 ML PREMIX IV (13:14)
[2023-07-28] MEDS: BUMETANIDE 1 MG/4 ML VIAL 0.5 MG IVP (13:16)
[2023-07-28 13:20] VITALS: BP 101/66; PULSE 87; TEMP 36.7; O2SAT 96
[2023-07-28 14:20] VITALS: BP 118/64; PULSE 85; TEMP 36.7; O2SAT 98
[2023-07-28] MEDS: HEPARIN SODIUM (PORCINE) PF LOCK FLUSH 500 UNIT/5 ML SYRINGE IV (14:20)
[2023-07-28] MEDS: PEGFILGRASTIM 6 MG/0.6 ML SQ (14:20)
--- NOTE | 2023-07-28 14:43 | PC.NURSE ---
0910: Lab results reviewed, Dr. Hope notified. New orders given. Copy of labs given to patient, values explained. Pt. relays understanding. 1003: Pre-meds initiated at this time. Breakfast tray ordered for pt.
--- NOTE | 2023-07-28 14:48 | PC.NURSE ---
1122: IV Keytruda initiated. Pt. without c/o or needs. Fiancee at bedside. 1220: Cyclophosphamide initiated as ordered. Pt. without c/o. Lunch tray ordered. Pt. up to bathroom to void. 1245: Tolerating infusion without s&s of adverse reaction. Denies c/o. 1320: Cytoxan completed at this time without s&s of adverse reaction. VSS.
--- NOTE | 2023-07-28 15:02 | PC.NURSE ---
1348: Doxorubicin 132mg ivp administered slowly at this time. Given over 10mins and blood return checked every 5ML. IV saline infusing wide open at time of administration.Pt. tolerated without c/o. 1405: Pt. up to bathroom to void. Relays pink tinged urine observed. Denies c/o burning. 1420: Port de-accessed after flushed with saline and Heparin flush. Trace bleeding. Covered with sterile 2x2. Pt. tolerated without c/o. Neulasta injector applied to left upper lateral portion of arm. Instructions given on when to remove device. Information booklet provided on Neulasta. Pt. relays understanding. Pt. instructed to call office with any concerns or c/o, brayan. fever>100.4 F. Pt. relays understanding. D/c'd amb. to home with jovan.
== END 2023-07-31 23:59 | disposition home or self-care (01) ==
LOC: INF 07:33
PROVIDERS: PCP Nurse Practitioner Family; Visit Provider Internal Medicine Hematology & Oncology
DX: Z51.11 Encounter for antineoplastic chemotherapy (principal); C50.311 Malignant neoplasm of lower-inner quadrant of right female breast; Z79.899 Other long term (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 therapy; D70.1 Agranulocytosis secondary to cancer chemotherapy; R11.2 Nausea with vomiting, unspecified; C77.9 Secondary and unspecified malignant neoplasm of lymph node, unspecified; Z15.09 Genetic susceptibility to other malignant neoplasm; Z79.818 Long term (current) use of other agents affecting estrogen receptors and estrogen levels; D64.81 Anemia due to antineoplastic chemotherapy; C77.3 Secondary and unspecified malignant neoplasm of axilla and upper limb lymph nodes; Z90.710 Acquired absence of both cervix and uterus; I10 Essential (primary) hypertension; T45.1X5A Adverse effect of antineoplastic and immunosuppressive drugs, initial encounter; G62.9 Polyneuropathy, unspecified
CPT/HCPCS: 36415; 36430; 36591; 76641; 80053; 81003; 82248; 83735; 84443; 85007; 85025; 85027; 86850; 86900; 86901; 96361; 96367; 96368; 96372; 96375; 96411; 96413; 96415; 96417; 99211; G0463; J1100; J1200; J1453; J1642; J1954; J2469; J2506; J3475; J3480; J9000; J9045; J9073; J9267; J9271; P9016; Q5101; Q5106

== ENCOUNTER 2023-08-25 07:38 | Outpatient (RCR) | payer OTHER, SELFPAY ==
[2023-08-04 11:10] VITALS: BP 109/72; PULSE 104; TEMP 37.2; O2SAT 98
[2023-08-04 11:44] LABS: Mean Corpuscular HGB Conc 34.2 g/dL (29.9-35.2); Mean Corpuscular Hemoglobin 35.4 pg (26.7-34.0); Mean Corpuscular Volume 103.5 fL (81.0-99.0); Mean Platelet Volume 9.7 fL (9.5-13.5); Platelet Count 106 10^3/uL (150-450); Red Blood Count 2.26 10^6/uL (4.20-5.40); Red Cell Distribution Width 17.3 % (11.0-15.0); White Blood Count 1.8 10^3/uL (4.0-11.0)
[2023-08-04 11:48] LABS: Hematocrit 23.4 % (36.0-48.0)
[2023-08-04 12:00] LABS: Alanine Aminotransferase 17 U/L (14-59); Albumin Globulin Ratio 1.2; Albumin Level 3.6 g/dL (3.4-5.0); Alkaline Phosphatase 62 U/L (46-116); Anion Gap 13.2; Aspartate Amino Transferase 9 U/L (15-37); BUN Creatinine Ratio 29.2; Bilirubin Total 0.7 mg/dL (0.2-1.0); Carbon Dioxide 29.8 mmol/L (21.0-32.0); Chloride 103 mmol/L (98-107); Estimated GFR (African America >60 (>=60); Estimated GFR (Non-African Ame >60 (>=60); Globulin 2.9 g/dL; Glucose 109 mg/dL (74-106); Sodium 143 mmol/L (136-145); Total Protein 6.5 g/dL (6.4-8.2)
[2023-08-04] MEDS: EPOETIN ALFA-EPBX 20,000 UNIT/ML VIAL 40000 UNIT SUBQ (12:20)
--- NOTE | 2023-08-04 12:32 | PC.NURSE ---
1110: Pt. to [facility] amb. for blood draw. Using sterile technique, left ant. chest port accessed. Flushes easily with good blood return. Blood obtained for ordered labs.
--- NOTE | 2023-08-04 12:35 | PC.NURSE ---
1145: Lab results reviewed with Dr. Hope. New order placed. Pt. notified. 1220: Medicated with Retacrit 40,000 units sq to ruq abdomen. No bleeding to site. Pt. tolerated without c/o. 1225: Pt. d/c'd amb. to home.
[2023-08-04 13:15] LABS: Basophils Abs Manual 0.03 10^3/uL (0.00-0.10); Eosinophils Absolute Manual 0.05 10^3/uL (0.00-0.70); Lymphocytes Absolute Manual 1.56 10^3/uL (1.20-3.80); Monocytes Absolute Manual 0.03 10^3/uL (0.30-0.80)
[2023-08-11 11:45] VITALS: BP 144/69; PULSE 106; TEMP 36.6; O2SAT 98
[2023-08-11 12:05] LABS: Hematocrit 25.2 % (36.0-48.0); Hemoglobin 8.3 g/dL (12.0-16.0); Mean Corpuscular HGB Conc 32.9 g/dL (29.9-35.2); Mean Corpuscular Hemoglobin 35.8 pg (26.7-34.0); Mean Corpuscular Volume 108.6 fL (81.0-99.0); Mean Platelet Volume 10.1 fL (9.5-13.5); Platelet Count 294 10^3/uL (150-450); Red Blood Count 2.32 10^6/uL (4.20-5.40); Red Cell Distribution Width 18.6 % (11.0-15.0); White Blood Count 14.6 10^3/uL (4.0-11.0)
[2023-08-11 12:33] LABS: Free T4 0.95 ng/dL (0.76-1.46)
[2023-08-11 12:34] LABS: Alanine Aminotransferase 24 U/L (14-59); Albumin Globulin Ratio 1.1; Albumin Level 3.4 g/dL (3.4-5.0); Alkaline Phosphatase 85 U/L (46-116); Anion Gap 14.2; Aspartate Amino Transferase 21 U/L (15-37); BUN Creatinine Ratio 9.1; Bilirubin Total 0.4 mg/dL (0.2-1.0); Calcium 8.7 mg/dL (8.5-10.1); Carbon Dioxide 26.9 mmol/L (21.0-32.0); Chloride 103 mmol/L (98-107); Estimated GFR (African America >60 (>=60); Estimated GFR (Non-African Ame >60 (>=60); Glucose 119 mg/dL (74-106); Potassium 3.1 mmol/L (3.5-5.1); Sodium 141 mmol/L (136-145); Thyroid Stimulating Hormone 2.456 uIU/mL (0.358-3.740); Total Protein 6.4 g/dL (6.4-8.2)
[2023-08-11] MEDS: EPOETIN ALFA-EPBX 20,000 UNIT/ML VIAL 40000 UNIT SUBQ (12:39)
[2023-08-11 12:47] LABS: Segmented Neut Absolute Manual 9.92 10^3/uL (1.4-6.5)
[2023-08-11 12:48] LABS: Band Neutrophils Absolute 0.6 10^3/uL (0.0-0.3); Lymphocytes Absolute Manual 3.06 10^3/uL (1.20-3.80); Monocytes Absolute Manual 0.73 10^3/uL (0.30-0.80)
[2023-08-11 12:49] LABS: Myelocytes Absolute Manual 0.29; Nucleated Red Blood Cells 4
[2023-08-11 12:50] LABS: Poikilocytosis 2+; Tear Drop Cells 2+
[2023-08-11 12:51] LABS: Acanthocytes 1+
--- NOTE | 2023-08-11 13:42 | PC.NURSE ---
1145: Pt. to [facility] amb. Weight obtained. Seated in recliner. VSS. Using sterile technique, left ant. chest port accessed easily per this RN. See documentation. Blood obtained for ordered labs. Pt. orders lunch. Given Starry soda. Denies needs or c/o. 1239: Pt. medicated with injection as ordered to right upper arm. See documentation. No bleeding to site. Pt. tolerated without c/o. Port flushed with saline and Heparin. Port de-accessed. No bleeding noted. Covered with sterile 2x2. 1243: D/c'd amb. to home.
[2023-08-18 08:15] VITALS: BP 136/82; PULSE 91; TEMP 36.7; O2SAT 98
[2023-08-18 08:47] VITALS: BP 136/82; PULSE 91; TEMP 36.7; O2SAT 98
[2023-08-18 09:11] LABS: Basophils Absolute Auto 0.1 10^3/uL (0.0-0.1); Eosinophils Percent Auto 0.6 % (0.9-7.0); Hematocrit 27.5 % (36.0-48.0); Hemoglobin 8.9 g/dL (12.0-16.0); Immature Granulocytes Abs Auto 0.08 10^3/uL (0.00-0.03); Immature Granulocytes Pct Auto 1.2 % (0.0-0.5); Lymphocytes Absolute Auto 1.6 10^3/uL (1.2-3.8); Mean Corpuscular HGB Conc 32.4 g/dL (29.9-35.2); Mean Corpuscular Hemoglobin 34.8 pg (26.7-34.0); Mean Platelet Volume 9.4 fL (9.5-13.5); Monocytes Absolute Auto 0.8 10^3/uL (0.3-0.8); Monocytes Percent Auto 12.2 % (1.7-12.0); Neutrophils Absolute Auto 4.2 10^3/uL (1.4-6.5); Platelet Count 521 10^3/uL (150-450); Red Blood Count 2.56 10^6/uL (4.20-5.40); Red Cell Distribution Width 17.4 % (11.0-15.0); White Blood Count 6.8 10^3/uL (4.0-11.0)
[2023-08-18] MEDS: BUMETANIDE 1 MG/4 ML VIAL IVP (09:14)
[2023-08-18 09:31] LABS: Alanine Aminotransferase 37 U/L (14-59); Albumin Level 3.2 g/dL (3.4-5.0); Alkaline Phosphatase 77 U/L (46-116); Anion Gap 13.8; Aspartate Amino Transferase 23 U/L (15-37); BUN Creatinine Ratio 15.7; Bilirubin Total 0.4 mg/dL (0.2-1.0); Calcium 9.7 mg/dL (8.5-10.1); Carbon Dioxide 28.5 mmol/L (21.0-32.0); Chloride 103 mmol/L (98-107); Estimated GFR (African America >60 (>=60); Estimated GFR (Non-African Ame 57 (>=60); Globulin 3.1 g/dL; Glucose 125 mg/dL (74-106); Magnesium 1.4 mg/dL (1.8-2.4); Percent Iron Saturation 17.2 %; Potassium 3.3 mmol/L (3.5-5.1); Sodium 142 mmol/L (136-145); Thyroid Stimulating Hormone 3.856 uIU/mL (0.358-3.740); Total Protein 6.3 g/dL (6.4-8.2)
--- NOTE | 2023-08-18 09:39 | PC.NURSE ---
0815: Pt. to [facility] amb. accompanied by jovan.Weight obtained. Seated in recliner. VSS. +2-3 pitting edema noted to bilat. lower extremities. See onco documentation for further assessment. Breakfast tray ordered. 0840: Using sterile technique, left ant. chest port accessed at this time. Pt. tolerated with minimal c/o. See documentation. Blood obtained for ordered labs. 0914: Bumex 1mg ivp administered as ordered.
[2023-08-18 09:50] LABS: Mean Corpuscular Volume 107.4 fL (81.0-99.0)
[2023-08-18] MEDS: MAGNESIUM SULFATE IN WATER 2 GM/50 ML PREMIX IV (10:19)
[2023-08-18] MEDS: PALONOSETRON HCL 0.25 MG/5 ML VIAL IVP (10:40)
[2023-08-18] MEDS: EPOETIN ALFA-EPBX 20,000 UNIT/ML VIAL 40000 UNIT SUBQ (10:41)
[2023-08-18] MEDS: POTASSIUM CHLORIDE 20 MEQ in 0.9 % SODIUM CHLORIDE 250 ML 130 MEQ IV (10:50)
[2023-08-18] MEDS: DEXAMETHASONE SODIUM PHOSPHATE 8 MG in 0.9 % SODIUM CHLORIDE 100 ML 302.399999999999977 MG IV (11:40)
[2023-08-18] MEDS: PEMBROLIZUMAB 200 MG in 0.9 % SODIUM CHLORIDE 100 ML 216 MG IV (12:10)
[2023-08-18] MEDS: DOXORUBICIN HCL 132 MG IVP (12:45)
[2023-08-18] MEDS: CYCLOPHOSPHAMIDE IV (12:59)
[2023-08-18] MEDS: SODIUM CHLORIDE 0.9% IV (12:59)
[2023-08-18] MEDS: PEGFILGRASTIM 6 MG/0.6 ML SQ (14:22)
[2023-08-18 14:30] VITALS: BP 124/74; PULSE 16; TEMP 36.9; O2SAT 99
--- NOTE | 2023-08-18 14:34 | PC.NURSE ---
1040: Pre-meds initiated at this time, see documentation. Patient ate 100% of breakfast without c/o n/v. Up to bathroom to void. 1215: Keytruda initiated at this time. Resting quietly with eyes closed. 1245: Pt. medicated with Doxorubicin IVP slow over 10minutes. Blood return checked after every 5ML pushed. Pt. tolerated with no c/o. IV line flushed with saline.
--- NOTE | 2023-08-18 14:44 | PC.NURSE ---
1259: Cyclophosphamide started at this time as ordered. Pt. denies needs or c/o. VSS.
--- NOTE | 2023-08-18 14:46 | PC.NURSE ---
1422: Neulasta Onpro applied to left arm. Pt. given instruction when to remove appliance, relays understanding. Pt. to bathroom to void. 1430: Port flushed with saline and Heparin flush, port de-accessed. No bleeding to site, sterile 2x2 dressing applied prophylactically. Pt. tolerated all without c/o. Pt. d/c'd amb. to home with jovan.
[2023-08-20] MEDS: PEGFILGRASTIM 6 MG/0.6 ML SQ (16:03)
--- NOTE | 2023-08-20 16:08 | PC.NURSE ---
1555: Pt's OnPro fell off of arm 08/18/23. Drug rep. notified and received approval for new device at no cost to patient. Pt arrived accompanied by jovan. OnPro applied to left arm after site cleansed with alcohol and skin prep. Secured with 4x4 tegaderm x's 2. 1605: Pt. d/c'd amb. to home with jovan.
[2023-08-25 12:01] VITALS: BP 104/68; PULSE 86; TEMP 37.1; O2SAT 96
[2023-08-25 12:04] LABS: Hemoglobin 8.9 g/dL (12.0-16.0); Mean Corpuscular Hemoglobin 34.8 pg (26.7-34.0); Mean Corpuscular Volume 105.5 fL (81.0-99.0); Mean Platelet Volume 9.5 fL (9.5-13.5); Platelet Count 279 10^3/uL (150-450); Red Blood Count 2.56 10^6/uL (4.20-5.40); White Blood Count 3.8 10^3/uL (4.0-11.0)
[2023-08-25] MEDS: EPOETIN ALFA-EPBX 20,000 UNIT/ML VIAL 40000 UNIT SUBQ (12:30)
[2023-08-25] MEDS: HEPARIN SODIUM (PORCINE) PF LOCK FLUSH 500 UNIT/5 ML SYRINGE IV (12:30)
--- NOTE | 2023-08-25 12:44 | PC.NURSE ---
1230 Injection as ordered rt upper abdomen. tolerated well. Released ambulatory
[2023-08-25 13:18] LABS: Basophils Abs Manual 0.03 10^3/uL (0.00-0.10); Lymphocytes Absolute Manual 0.83 10^3/uL (1.20-3.80); Metamyelocytes Absolute Manual 0.03; Monocytes Absolute Manual 0.07 10^3/uL (0.30-0.80); Myelocytes Absolute Manual 0.03; Segmented Neut Absolute Manual 2.77 10^3/uL (1.4-6.5)
[2023-08-25 13:19] LABS: Ovalocytes 1+; Poikilocytosis 1+; Tear Drop Cells 1+
== END 2023-08-30 23:59 | disposition home or self-care (01) ==
LOC: INF 07:38
PROVIDERS: PCP Nurse Practitioner Family; Visit Provider Internal Medicine Hematology & Oncology
DX: Z51.11 Encounter for antineoplastic chemotherapy (principal); C50.311 Malignant neoplasm of lower-inner quadrant of right female breast; Z79.899 Other long term (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 therapy; D70.1 Agranulocytosis secondary to cancer chemotherapy; R11.2 Nausea with vomiting, unspecified; Z79.818 Long term (current) use of other agents affecting estrogen receptors and estrogen levels; D64.81 Anemia due to antineoplastic chemotherapy; C77.3 Secondary and unspecified malignant neoplasm of axilla and upper limb lymph nodes
CPT/HCPCS: 36591; 80053; 82728; 83540; 83550; 83735; 83880; 84439; 84443; 85007; 85025; 85027; 86850; 86900; 86901; 96367; 96368; 96372; 96375; 96377; 96411; 96413; 96415; G0463; J1100; J1453; J1642; J2469; J2506; J3475; J3480; J9000; J9073; J9271; Q5106

== ENCOUNTER 2023-09-11 11:12 | Outpatient (OUT) | payer OTHER, SELFPAY ==
--- NOTE | 2023-09-11 11:00 | CA_ITS ---
Patient Name: IKE JONES MR#: [id number] : 1970 Exam Date: 09/11/2023 Ordering Doctor: AARTI NUNEZ ECHOCARDIOGRAM REPORT PROCEDURE: CA ECHO DOPPLER COMPLETE INDICATIONS: Cardiotoxic chemotherapy, breast cancer COMPARISON: None. DESCRIPTION: COMPLETE ECHOCARDIOGRAM Real-time transthoracic echocardiography with 2D, M-mode, spectral and color flow Doppler performed. QUALITY: Technical quality was good. LEFT VENTRICLE: Normal chamber size. Mild concentric left ventricular hypertrophy. Normal systolic function. LV EF: Normal left ventricular ejection fraction, (55-60%). DIASTOLIC: Diastolic function is indeterminate. ATRIAL SEPTUM: Visually appears intact. LEFT ATRIUM: Normal chamber size. RIGHT ATRIUM: Normal chamber size. RIGHT VENTRICLE: Normal chamber size. Normal right ventricular systolic function. TRICUSPID VALVE: Normal mobility and thickness. No stenosis with trivial regurgitation. Doppler studies reveal moderately (45-60) elevated right sided pressures. RVSP 50 mmHg (echo 05/15/2023 was 36 mmHg) MITRAL VALVE: Normal mobility and thickness. No evidence of mitral valve stenosis. There is no mitral annular calcification. Trivial mitral regurgitation. AORTIC VALVE: Normal trileaflet appearance. No visible sclerosis. Normal leaflet mobility. No evidence of aortic valve stenosis. No aortic regurgitation. AORTIC ROOT: Normal diameter and appearance. Ascending aorta is normal in size. PULMONIC VALVE: Normal thickness and mobility. No stenosis. No regurgitation. PERICARDIUM: No evidence of pericardial effusion. IVC: IVC is normal in size, does not fully collapse. PLEURA: CONCLUSION: 1. Mild concentric left ventricular hypertrophy with normal systolic function. LVEF is estimated at 55 to 60%. 2. Normal right ventricular size and systolic function. 3. No significant valvular dysfunction. 4. Moderately elevated right-sided pressures. RVSP is 50 mmHg. 5. No pericardial effusion. Adult Echocardiography Procedure Report Left Ventricle LVEDD (3.7 - 5.6 cm): 4.61 cm LVESD (2.2 - 4.0 cm): 3.32 cm LVIVS thickness (0.6 - 1.2 cm): 1.18 cm LVPW thickness (0.5 - 1.0 cm): 1.11 cm E - e': 13.67 LVOT Max Gradient: 6.28 mm[Hg] LVOT Area (cm2): 1.25 m/s Peak Velocity (LVOT): 1.25 m/s Mean Velocity (LVOT): 0.77 m/s LVOT Diameter 2.27 cm Left Atrium LA Volume Index (2D A2C): 33.68 ml/m2 Left Atrium Systolic Dimension: 3.90 cm Mitral Valve MV E to A Ratio: 1.14, 1.12 Right Ventricle Aorta AO Root Diam: 3.15 cm Ascending Ao Diam: 2.98 cm Aortic Valve AoV Area (Peak Stefan): 2.88 cm2, 2.88 cm2 AoV Area (VTI): 2.79 cm2, 2.79 cm2 Peak Velocity(Antegrade Flow): 1.76 m/s Peak Gradient(Antegrade Flow): 12.32 mm[Hg] Mean Velocity(Antegrade Flow): 1.22 m/s Mean Gradient(Antegrade Flow): 6.73 mm[Hg] Velocity Time Integral: 32.14 cm Tricuspid Valve Peak Velocity (Regurgitant Flow): 3.24 m/s Pulmonic Valve Mean Gradient: 3.15 mm[Hg] Mean Velocity: 0.81 m/s Peak Velocity: 1.26 m/s, 1.31 m/s Peak Gradient: 6.86 mm[Hg], 6.31 mm[Hg] Right Atrium Right Atrium Systolic Pressure: 43.90 ml, 43.90 ml Dictated by: Clint Villanueva M.D. on 09/11/2023 at 13:09 Approved by: Clint Villanueva M.D. on 09/11/2023 at 13:13
== END 2023-09-11 11:13 | disposition home or self-care (01) ==
LOC: CARD 11:12
PROVIDERS: PCP Nurse Practitioner Family; Visit Provider Internal Medicine Hematology & Oncology
DX: C50.311 Malignant neoplasm of lower-inner quadrant of right female breast (principal); Z79.899 Other long term (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 therapy; D70.1 Agranulocytosis secondary to cancer chemotherapy; Z79.60 Long term (current) use of unspecified immunomodulators and immunosuppressants; R11.2 Nausea with vomiting, unspecified; Z79.818 Long term (current) use of other agents affecting estrogen receptors and estrogen levels; D64.81 Anemia due to antineoplastic chemotherapy; C77.3 Secondary and unspecified malignant neoplasm of axilla and upper limb lymph nodes
CPT/HCPCS: 93306; 93356

== ENCOUNTER 2023-09-18 10:02 | Outpatient (OUT) | payer OTHER, SELFPAY ==
--- NOTE | 2023-09-16 09:06 | V.VEINS.HP ---
Vital Signs 09/16/23 09:08 Weight 103 kg Varicose Veins Patient is a 52 year old female in this day as a referral from cardiology Dr. Villanueva. Patient c/o I, Leonidas Tapia MD personally performed the services described in this documentation, as scribed by Ashwin Gerber RN in my presence and it is both accurate and complete. I, Ashwin Gerber RN, am scribing for, and in the presence of, Dr. Leonidas Tapia and in the presence of the patient. [facility] Medical History (Updated 09/16/23 @ 09:34 by Ashwin Gerber) Pain due to varicose veins of both lower extremities ?I83.813 - Varicose veins of bilateral lower extremities with pain (ICD-10) Anemia ?D64.9 - Anemia, unspecified (ICD-10) COVID-19 ?U07.1 - COVID-19 (ICD-10) Exercise-induced asthma ?J45.990 - Exercise induced bronchospasm (ICD-10) PICC (peripherally inserted central catheter) in place (04/20/23) ?Z45.2 - Encounter for adjustment and management of vascular access device (ICD-10) Postoperative nausea and vomiting ?R11.2 - Nausea with vomiting, unspecified (ICD-10) ?Z98.890 - Other specified postprocedural states (ICD-10) Invasive ductal carcinoma of breast ?C50.919 - Malignant neoplasm of unspecified site of unspecified female breast (ICD-10) Arthritis ?M19.90 - Unspecified osteoarthritis, unspecified site (ICD-10) HTN (hypertension) ?I10 - Essential (primary) hypertension (ICD-10) Migraines ?G43.909 - Migraine, unspecified, not intractable, without status migrainosus (ICD-10) Surgical History (Updated 05/08/23 @ 09:12 by Lenore Coyle NP) History of tonsillectomy ?Z90.89 - Acquired absence of other organs (ICD-10) H/O ultrasound guided needle biopsy ?Z98.890 - Other specified postprocedural states (ICD-10) S/P breast lumpectomy ?Z98.890 - Other specified postprocedural states (ICD-10) H/O exploratory laparotomy ?Z98.890 - Other specified postprocedural states (ICD-10) H/O: hysterectomy ?Z90.710 - Acquired absence of both cervix and uterus (ICD-10) H/O arthroscopy of left knee ?Z98.890 - Other specified postprocedural states (ICD-10) S/P right knee arthroscopy ?Z98.890 - Other specified postprocedural states (ICD-10) H/O excision of mass ?Z98.890 - Other specified postprocedural states (ICD-10) Family History (Updated 05/08/23 @ 09:24 by Lenore Coyle NP) Other Family history not known due to adoption Social History (Updated 05/08/23 @ 09:07 by Lenore Coyle NP) Within the past year, how often did you have a drink containing alcohol: monthly or less Smoking status: Never smoker Non-prescribed substance use: denies use 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 Highest level of school completed/degree received: Associate degree: academic program Meds Home Medications and Allergies Home Medications ?Medication ?Instructions ?Recorded ?Confirmed ?Type chlorthalidone 25 mg tablet 50 mg PO DAILY 03/23/23 07/09/23 History cyclobenzaprine 10 mg tablet 10 mg PO BEDTIME 03/23/23 07/09/23 History lisinopril 20 mg tablet 20 mg PO DAILY 03/23/23 07/09/23 History trazodone 50 mg tablet 50 mg PO .QHS 03/23/23 07/09/23 History spironolactone 25 mg tablet 25 mg PO DAILY 05/08/23 07/09/23 History metoprolol succinate 100 mg 100 mg PO DAILY 05/19/23 07/09/23 History tablet,extended release 24 hr Allergies Allergy/AdvReac Type Severity Reaction Status Date / Time adhesive tape Allergy Rash Verified 03/26/23 09:32 meperidine [From Demerol] Allergy Swelling Verified 04/02/23 16:20 of Lip/Tongue/Throat Assessment and Plan Assessment and Plan (1) Pain due to varicose veins of both lower extremities: Plan Dr. Tapia examines patient and reviews results of bilateral leg reflux u/s. Patient and Dr. Tapia create plan of care. Bilateral leg reflux u/s reveals
--- NOTE | 2023-09-18 07:46 | VEINCLINIC_ITS ---
Vital Signs 09/16/23 09:08 09/18/23 11:04 Height 5 ft 11 in Weight 103 kg Varicose Veins Patient in this day for comprehensive consult for bilateral painful varicose veins. She was referred by Dr. Villanueva for BLE edema. She is on 3 water pills and legs remains swollen. Patient has worn compression stockings for 1 year. She reports swelling is worse on the right. She is active daily. Leonidas Landon MD personally performed the services described in this documentation, as scribed by Jessica Dash RN in my presence and it is both accurate and complete. Jessica Landon RN, am scribing for, and in the presence of, Dr. Leonidas Tapia and in the presence of the patient. thigh: bilateral, knee: bilateral, calf: bilateral, ankle: bilateral and woodruff: bilateral aching and tender 3 Worsened in recent months: Yes standing and sitting analgesics, elevating extremities and compression stockings Reports fatigue, heaviness, edema and leg edema History of lower extremity trauma: No Superficial thrombophlebitis: No Family history of varicose veins: yes Has patient had previous lower extremity venous surgery: No Patient has previously received the following treatment(s) for lower extremity varicose veins: Reports none Does patient have a history of : yes Does patient intend to have future pregnancies: no Has patient had lower extremity venous scan with relux testing: Yes Support hose used: Yes Problems walking or doing physical activity: Yes How does it affect you: level of activity decreased due to pain and swelling Do you walk much: Yes Do you stand much: Yes Review of Systems ROS Narrative Leonidas Landon MD personally performed the services described in this documentation, as scribed by Jessica Dash RN in my presence and it is both accurate and complete. Jessica Landon RN, am scribing for, and in the presence of, Dr. Leonidas Tapia and in the presence of the patient. Status of ROS 10 or more systems reviewed and unremark able except as noted in history and below Cardiovascular Reports: edema and swelling of feet/ankles Musculoskeletal Reports: extremity pain, extremity swelling, joint pain, joint swelling, muscle cramps and muscle weakness Integumentary/Breast Reports: rash and skin tenderness PFSH [facility] Medical History (Updated 09/16/23 @ 09:34 by Ashwin Gerber) Pain due to varicose veins of both lower extremities ?I83.813 - Varicose veins of bilateral lower extremities with pain (ICD-10) Anemia ?D64.9 - Anemia, unspecified (ICD-10) COVID-19 ?U07.1 - COVID-19 (ICD-10) Exercise-induced asthma ?J45.990 - Exercise induced bronchospasm (ICD-10) PICC (peripherally inserted central catheter) in place (04/20/23) ?Z45.2 - Encounter for adjustment and management of vascular access device (ICD-10) Postoperative nausea and vomiting ?R11.2 - Nausea with vomiting, unspecified (ICD-10) ?Z98.890 - Other specified postprocedural states (ICD-10) Invasive ductal carcinoma of breast ?C50.919 - Malignant neoplasm of unspecified site of unspecified female breast (ICD-10) Arthritis ?M19.90 - Unspecified osteoarthritis, unspecified site (ICD-10) HTN (hypertension) ?I10 - Essential (primary) hypertension (ICD-10) Migraines ?G43.909 - Migraine, unspecified, not intractable, without status migrainosus (ICD-10) Surgical History (Updated 05/08/23 @ 09:12 by Lenore Coyle NP) History of tonsillectomy ?Z90.89 - Acquired absence of other organs (ICD-10) H/O ultrasound guided needle biopsy ?Z98.890 - Other specified postprocedural states (ICD-10) S/P breast lumpectomy ?Z98.890 - Other specified postprocedural states (ICD-10) H/O exploratory laparotomy ?Z98.890 - Other specified postprocedural states (ICD-10) H/O: hysterectomy ?Z90.710 - Acquired absence of both cervix and uterus (ICD-10) H/O arthroscopy of left knee ?Z98.890 - Other specified postprocedural states (ICD-10) S/P right knee arthroscopy ?Z98.890 - Other specified postprocedural states (ICD-10) H/O excision of mass ?Z98.890 - Other specified postprocedural states (ICD-10) Family History (Updated 09/18/23 @ 10:26 by Jessica Dash RN) Mother Pain due to varicose veins of both lower extremities Other Family history not known due to adoption Social History (Updated 05/08/23 @ 09:07 by Lenore Coyle NP) Within the past year, how often did you have a drink containing alcohol: monthly or less Smoking status: Never smoker Non-prescribed substance use: denies use 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 Highest level of school completed/degree received: Associate degree: academic program Meds Home Medications and Allergies Home Medications ?Medication ?Instructions ?Recorded ?Confirmed ?Type chlorthalidone 25 mg tablet 50 mg PO DAILY 03/23/23 07/09/23 History cyclobenzaprine 10 mg tablet 10 mg PO BEDTIME 03/23/23 07/09/23 History lisinopril 20 mg tablet 20 mg PO DAILY 03/23/23 07/09/23 History trazodone 50 mg tablet 50 mg PO .QHS 03/23/23 07/09/23 History spironolactone 25 mg tablet 25 mg PO DAILY 05/08/23 07/09/23 History metoprolol succinate 100 mg 100 mg PO DAILY 05/19/23 07/09/23 History tablet,extended release 24 hr Allergies Allergy/AdvReac Type Severity Reaction Status Date / Time adhesive tape Allergy Rash Verified 03/26/23 09:32 meperidine [From Demerol] Allergy Swelling Verified 04/02/23 16:20 of Lip/Tongue/Throat Exam Narrative Exam Narrative: Leonidas Landon MD personally performed the services described in this documentation, as scribed by Jessica Dash RN in my presence and it is both accurate and complete. IJessica RN, am scribing for, and in the presence of, Dr. Leonidas Tapia and in the presence of the patient. Constitutional Documenting provider has reviewed patient's vital signs: yes Common normals: oriented x3 Nutritional appearance: overweight Lymph Lymphatic: no lymphedema noted Cardio Peripheral pulses: posterior tibial pulses present and dorsalis pedis pulses present Extremity General: edema and other findings Right lower extremity: lower leg Right lower leg: inspection and palpation Left lower extremity: lower leg Left lower leg: inspection and palpation Neuro Common normals: oriented x3 Assessment and Plan Assessment and Plan Plan Explained vein anatomy and physiology of patient. Explained the development of varicose veins to patient.? Explained varicose vein treatments to patient, including laser ablation, microfoam chemical ablation (Varithena), injection sclerotherapy and microphlebectomy.? Explained potential risks and benefits of varicose vein treatments.? Patient verbalizes understanding and wants to pursue varicose vein treatment.? Dr. Tapia examines patient and reviews results of bilateral leg reflux u/s.? Patient and Dr. Tapia creates a plan of care.? Patient also agrees to purchase bilateral thigh high compression stockings and wear them as educated.? Patient also educated on exercise and rest elevation of bilateral legs. ILeonidas MD personally performed the services described in this documentation, as scribed by Jessica Dash RN in my presence and it is both accurate and complete. I, Jessica Dash RN, am scribing for, and in the presence of, Dr. Leonidas Tapia and in the presence of the patient.
--- NOTE | 2023-09-18 07:59 | P.DS_ITS ---
Discharge Plan Discharge Disposition: Home, Self-Care Outpatient Diagnostics: VC Endovenous Ablation 1VeinLT (Routine) Timeframe: 3 Months Facility: [facility] - Location: [facility] Ordered By: Leonidas Tapia Follow Up Appointments: Follow up November 2023 Plan of Treatment: Oncologist is going to call patient to manage DVT. Patient to have double mastectomy October 2023. Will start precert for insurance November 2023. Patient Instructions: Varicose Veins (GEN), Endovenous Ablation (GEN) Print Language: Pashto Discharge Date/Time: 09/18/23 11:45
--- NOTE | 2023-09-18 10:07 | VEIN_ITS ---
Patient Name: IKE JONES MR#: [id number] : 1970 Exam Date: 09/18/2023 Ordering Doctor: DR VIVIAN BAZAN M.D. RADIOLOGY REPORT PROCEDURE: VC EXT VENOUS REFLUX VONNIE LMTD COMPARISON: None. INDICATIONS: Edema R60.0 TECHNIQUE: Duplex imaging of the lower extremity to assess the deep and superficial venous system for the presence of deep or superficial venous incompetence and to document the location and severity of disease. The study includes evaluation of the great saphenous vein (GSV), anterior accessory saphenous vein (AASV) and small saphenous vein (SSV). Patient scanned in reverse Trendelenburg and standing. FINDINGS: RIGHT LOWER EXTREMITY: Saphenofemoral Junction Reflux: Yes 8.9mm 1.1 sec GSV: Diam (mm) Reflux/ Time (sec) Proximal Thigh 6.9 Yes 1.2 Mid Thigh 6.4 Yes 1.0 Distal Thigh 8.4 Yes 3.4 Prox Calf 5.9 Yes 0.4 Mid Calf 5.5 Yes 0.8 Saphenopopliteal Junction Reflux: 2.6mm Yes 1.9 SSV: Proximal Calf 3.9 No Mid Calf 3.2 No AASV: Proximal Thigh 4.0 Yes 2.0 Mid Thigh 2.7 Yes 0.6 Distal Thigh Thrombi: No acute or chronic thrombus. Compressibility: Normal. Flow: Mild deep venous reflux. Preforator: Distal medial lower leg 2.9 mm with 2.1s reflux. Tech Note: Hypoechoic area medial popliteal fossa measures 3.0 x 3.8 x 1.1 cm. Incompetent varicose vein proximal medial lower leg measures 4.4 mm with 0.5s reflux. LEFT LOWER EXTREMITY: Saphenofemoral Junction Reflux: Yes 11.2 mm 3.0 sec GSV: Diam (mm) Reflux/Time (sec) Proximal Thigh 7.6 Yes 0.8 Mid Thigh 5.9 Yes 0.4 Distal Thigh 6.7 Yes 1.2 Prox Calf 6.3 Yes 2.3 Mid Calf 5.4 Yes 0.7 Saphenopopliteal Junction Relux: 5.8 mm Yes 4.2 SSV: Proximal Calf 5.8 Yes 4.2 Mid Calf 6.1 Yes 0.9 AASV: Proximal Thigh 5.6 Yes 1.5 Mid Thigh 3.9 Yes 0.5 Distal Thigh Thrombi: Thrombus noted in mid peroneal vein and one PTV from prox to distal lower leg. Compressibility: Non-compressible and partially compressible segments of PTV and peroneal vein. Flow: Severe deep venous reflux in CFV, DFV, and femoral vein. Boom Master: Mid medial lower leg with partial thrombus measures 5.1 mm with 3.6s reflux. Tech Note: Incompetent varicose vein proximal medial lower leg measures 5.6 mm with 1.1s reflux. CONCLUSION: 1. Abnormally dilated and incompetent bilateral great saphenous veins, left small saphenous vein, and left anterior accessory saphenous vein. 2. Abnormally dilated incompetent branch saphenous varicosities bilaterally. 3. Short segment of deep vein thrombus within mid peroneal vein extending into 1 of the distal posterior tibial veins. Dictated by: Leonidas Tapia M.D. on 09/18/2023 at 11:36 Approved by: Leonidas Tapia M.D. on 09/18/2023 at 11:55
--- NOTE | 2023-09-18 10:07 | VEIN_ITS ---
Patient Name: IKE JONES MR#: [id number] : 1970 Exam Date: 09/18/2023 Ordering Doctor: DR VIVIAN BAZAN M.D. RADIOLOGY REPORT PROCEDURE: VC [facility] - OFFICE VISIT INITIAL COMPARISON: None. PROGRESS NOTES: [age] year old female who presents with a 3 year history of bilateral lower extremity heaviness and swelling. The patient's leg symptoms are symmetric bilaterally. There has been a progression of symptoms over time. This increases with prolonged leg dependency. The patient describes an improvement with rest, elevation, exercise. The patient denies any signs and symptoms to suggest arterial ischemia. The patient describes a family history : Unknown. The patient has drinking and smoking history of occasional alcohol consumption; no tobacco use. Patient has a past medical history significant for breast cancer, hypertension and is currently undergoing chemotherapy and preparing for heart surgery. The patient denies a history of deep venous thrombus or pulmonary embolus. See separate history and physical for medication list. No prior treatment for varicose or spider veins. Current use of compression stockings. After review of nurse notes, history and physical exam I discussed at length the pathophysiology of venous hypertension and possible treatments, therapies and strategies available. We discussed at length the importance of elevating the lower extremities above the level of the heart, increased physical activity and compression stocking use. Ultrasound venous reflux study performed today was discussed at length with the patient. The report demonstrates abnormally dilated and incompetent right great saphenous vein, left great saphenous, small saphenous, and anterior accessory saphenous veins, bilateral branch saphenous varicosities. PHYSICAL EXAM: The right leg demonstrates a few varicosities, scattered spider veins, no ulceration, moderate edema at time of evaluation but patient describes significantly worse edema, no skin discoloration. The left leg demonstrates a few varicosities, scattered spider veins, no ulceration, moderate francisca at time of evaluation but patient describes significantly worse edema a, no skin discoloration. Both thighs, legs and feet were symmetrically warm to the touch. Good posterior tibial and dorsalis pedis pulses were present bilaterally. VEIN/VC Facility EST Comprehensive IMPRESSION: 1. Bilateral lower extremity venous insufficiency 2. Bilateral lower extremity varicose veins 3. Moderate or greater bilateral lower extremity subcutaneous edema 4. No flow significant arterial disease 5. CEAP: C3, EP, , SC PLAN: 1. Continued use of compression stockings 2. Elevated legs and increased physical activity symptomatic relief 3. Endovenous laser ablation of left great saphenous, right great saphenous, left small saphenous, and left anterior accessory saphenous veins. 4. Microfoam chemical ablation of incompetent branch saphenous varicosities bilaterally. 5. Sclerotherapy bilaterally. Nurse notes, history and physical were reviewed and confirmed, see attached forms. The nurse was present throughout the physical exam and consultation Dictated by: Leonidas Tapia M.D. on 09/18/2023 at 11:55 Approved by: Leonidas Tapia M.D. on 09/18/2023 at 12:45
--- OUTSIDE RECORDS SUMMARY | 2023-09-18 10:21 | XMS_ITS | CCD ---
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 Name Role Phone Jesusita Gee Unavailable RANDY CALLE Primary Care Unavailable Reny, Hua Kraus Admitting Unavail able Reny, Hua Kraus Attending Unavail able Hua Oglesby Admitting Unavail able RANDY CALLE Primary Care Unavailable Reny, Hau Kraus Attending Unavail able RANDY CALLE Primary Care Unavailable Paco Giraldo Attending Unavailable RANDY CALLE Primary Care Unavailable Reny, Hua Kraus Admitting Unavail able RANDY CALLE Consulting Unavailable Reny, Hua Kraus Attending Unavail able Reny, Hua Kraus Admitting Unavail able RANDY CALLE Primary Care Unavailable Hiral Small Consulting Unavailable Reny, Hua Kraus Attending Unavail able RANDY CALLE Primary Care Unavailable [place], Hua Kraus Admitting Unavail able Reny, Hua Kraus Attending Unavail able Hua Oglesby Admitting Unavail able RANDY CALLE Primary Care Unavailable Reny, Hua Kraus Attending Unavail able KRYSTEN, DR ANNE Admitting Unavailable KRYSTEN, DR ANNE Attending Unavailable ALVA, DR RANDY Jaramillo Primary Care Unavailable KRYSTEN, DR ANNE Consulting Unavailable MILKA, DR KAYE Reynoso Admitting Unavailable MILKA, DR KAYE Reynoso Attending Unavailable ALVA, DR RANDY Jaramillo Primary Care Unavailable KRYSTEN, DR ANNE Consulting Unavailable PANORA, DR HIRAL Meza Consulting Unavailable MILKA, DR KAYE Reynoso Consulting Unavailable Jackson WILLETT Primary Care Physician [phone] RANDY CALLE Primary Care Physician Randy Calle Unavailable Unavailable Unavailable Christy II, Dr. Christopher Gtz Attending Unavailable McGuinn II, Dr. Christopher Gtz Referring Unavailable Furlong, Dr. Randy Meier Primary Care Unava ilable McGuinn II, Dr. Christopher Gtz Attending Unavailable McGuinn II, Dr. Christopher Gtz Referring Unavailable Furlong, Dr. Randy Meier [facility] Care Unava ilable Shakeeluinn II, Dr. Christopher Gtz Attending Unavailable McGuinn II, Dr. Christopher Gtz Referring Unavailable Furlong, Dr. Randy Meier [facility] Care Unava ilambar Michael, Ms. Brittani Cortes Attending Kristan Michael, Ms. Brittani Cortes Referring Unavai lable Furlong, Dr. Randy Meier Primary Care Unava ilBRITTANI Varela Attending Unavailable BRITTANI AVALOS Referring Unavailable Furlong, Dr. Randy Meier [facility] Yudelkava ilable [place], DO Padilla Primary Care Provider Jacques, CROP OR GRAIN FARMER Amy Attending Provider [phone] Randy Calle MD Primary Care Provider [phone] JACQUES, AMY L Referring Unavailable JACQUES, AMY L Primary Care Unavailable JACQUES, AMY L Referring Unavailable JACQUES, AMY L Primary Care Unavailable JACQUES, AMY L Referring Unavailable JACQEUS, AMY L Primary Care Unavailable JACQUES, AMY L Referring Unavailable JACQUES, AMY L Primary Care Unavailable JACQUES, AMY L Referring Unavailable JACQUES, AMY L Primary Care Unavailable JACQUES, AMY L Referring Unavailable JACQUES, AMY L Primary Care Unavailable JACQUES, AMY L Referring Unavailable JACQUES, AMY L Primary Care Unavailable Jacques PROMOTIONS DIRECTOR-BED OPERATOR, Amy L Primary Care Provider Jacques, Amy Admitting Unavailable Jacques, Amy Attending Unavailable Randy Calle Primary Care Unavailable EVAN THOMPSON Attending Unavailable EVAN THOMPSON Attending Unavailable Reid Bauer Attending Unavailable Jackson WILLETT Attending Unavailable Jackson WILLETT Attending Unavailable Jackson WILLETT Attending Unavailable BRITTANI MICHAEL Admitting Unavailable BRITTANI MICHAEL Attending Unavailable Chantal Bear Admitting Unavailable Chantal Bear Attending Unavailable Christopher Harrison Attending Unavailable Christopher Harrison Admitting Unavailable CHRISTOPHER HARRISON Attending Unavailable RANDY CALLE Primary Care Unavailab le HE, CHRISTY A Attending Unavailable JACQUES, AMY L Referring Unavailable JACQUES, AMY L Primary Care Unavailable HAJA LOPEZ Attending Unavail able JACQUES, AMY L Referring Unavailable JACQUES, AMY L Primary Care Unavailable HE, CHRISTY A Attending Unavailable JACQUES, AMY L Referring Unavailable JACQUES, AMY L Primary Care Unavailable VIVIAN BAZAN Attending Unavailable HE, CHRISTY A Referring Unavailable JACQUES, AMY L Primary Care Unavailable HE, CHRISTY A Referring Unavailable JACQUES, AMY L Primary Care Unavailable HE, CHRISTY A Referring Unavailable JACQUES, AMY L Primary Care Unavailable NAYELI PETERSON Referring Unavailable JACQUES, AMY L Primary Care Unavailable HE, CHRISTY A Referring Unavailable JACQUES, AMY L Primary Care Unavailable ENRIQUE, JESSICA Referring Unavailable JACQUES, AMY L Primary Care Unavailable Allergies Allergy Classification Reported Allergen(s) Allergy Type Date of Onset Reaction(s) Facility (20 sources) Meperidine; Translations: [meperidine] Drug Allergy 9 anaphylaxis, Eruption of skin (disorder), Swelling, Unknown [facility] (1 source) Adhesive bandage; Translations: [Adhesive Bandage] Propensity to adverse reactions (disorder) [facility] Repository (3 sources) Meperidine; Translations: [Demerol] Drug Allergy 3 [facility] Repository (5 sources) Adhesive agent; Translations: [ADHESIVE] Drug allergy (disorder) 5 [facility] Repository (2 sources) Meperidine Drug Allergy 3 Unknown [facility] Healthcare (2 sources) Wound Dressing Adhesive Drug Allergy 3 Unknown [facility] Healthcare (5 sources) Adhesive agent Propensity to adverse reactions to drug 2 [facility] [employer] Work Phone: (1 source) Meperidine Drug Allergy [address] [facility] Repository Medications Current Medications Medication Drug Class(es) Dates Sig (Normalized) Sig (Original) albuterol 0.83 mg/ml inhalation solution (6 sources) beta2-Adrenergic Agonist Start: 03-07-2022 take 3 mL by inhalation every six hours as needed for wheezing albuterol (PROVENTIL,VENTOLIN ) 2.5 mg /3 mL (0.083 %) nebulizer solution Indications: Mild intermittent asthma without complication Inhale 3 mL (2.5 mg total) by nebulization every 6 (six) hours as needed for wheezing. 75 mL 1 03/07/2022 Active Start: 11-11-2021 take 2 puff(s) by in halation every four hours as needed Albuterol Sulfate [...] day(s), # 21 cap(s), Refills(s) 0, Pharmacy: [facility]/pharmacy #[id number], 180, cm, 07/14/22 14:05:00 EDT, Height/Length Dosing, 99.7, kg, 07/14/22 14:05:00 EDT, Weight Dosing Start Date: 07/14/22 Stop Date: 07/21/22 Status: Ordered carvedilol 25 mg oral tablet (12 sources) alpha-Adrenergic Bridgette, beta-Adrenergic Bridgette Start: 05-01-2022 take 1 tablet by mouth at bedtime carvediloL (COREG) 25 mg tablet Take 1 tablet (25 mg total) by mouth in the morning and at bedtime. 180 tablet 1 05/01/2022 Active Coreg Active cefuroxime 250 mg oral tablet (1 source) Cephalosporin Antibacterial Start: 03-17-2018 Cefuroxime Axetil Active TABLET March 17, 2018 12:00am Chlorthalidone (11 sources) Thiazide-like Diuretic Start: 04-06-2023 chlorthalidone as [...] Active TABLET March 17, 2018 12:00am cyclobenzaprine (12 sources) Muscle Relaxant Start: 04-06-2023 cyclobenzaprin e as directed, Refills(s) 0 Start Date: 04/06/23 Status: Ordered Start: 12-01-2022 End: 04-28-2023 take 1 tablet by mouth once daily in the evening cyclobenzaprine (FLEXERIL) 10 mg tablet TAKE ONE TABLET BY MOUTH ONCE DAILY IN THE EVENING 30 tablet 11 04/28/2023 Active take 1 tablet by haydee th three times daily as needed cyclobenzaprine (Flexeril) 10 MG tablet Take 10 mg by mouth 3 (three) times a day as needed 0 Active FeroSul 325 mg oral tablet (3 sources) Start: 07-14-2022 FeroSul 325 mg oral tablet Refills(s) 0 Start Date: 07/14/22 Status: Ordered ferrous sulfate 325 mg oral tablet (5 sources) Start: 03-07-2022 take 1 tablet by mouth in the morning ferrous sulfate 325 (65 FE) mg tablet Take 1 tablet (325 mg total) by mouth in the morning. 90 tablet 2 03/07/2022 Active fluticasone propionate 0.05 mg/actuat metered dose nasal spray (8 sources) Corticosteroid Start: 04-06-2023 Flonase 0.05 mg/inh [place] 1 spray(s), Nasal, BID, Refill(s) 0 Start Date: 04/06/23 Status: Ordered take 1 spray(s) nasal route once daily fluticasone propionate (FLONASE) 50 mcg/actuation nasal spray 1 spray in each nostril Nasally Once a day 0 Active fluticasone (Austen nase) 50 MCG/ACT nasal spray 1 (one) time each day at the same time 0 Active hydroCHLOROthiazide 12.5 mg oral tablet (2 sources) Thiazide Diuretic hydroCHLOROthi azide (HYDRODiuril) 12.5 MG tablet 1 (one) time each day at the same time 0 Active hydroCHLOROthiazide 12.5 mg / lisinopril 20 mg oral tablet (13 sources) Thiazide Diuretic, Angiotensin Converting Enzyme Inhibitor Start: 06-18-19 hydrochlorothiazide-lisinop ril 12.5 mg-20 mg Tab Refill(s) 0, as directed Start Date: 07/14/22 Status: Ordered Start: 11-27-2021 take 1 tablet by haydee th every twenty-four hours lisinopril-hydroCHLOROthiazide (PRINZIDE,ZESTORETIC) 20-12.5 mg per tablet Take 1 tablet by mouth daily. 90 tablet 1 11/27/2021 Active lisinopril-hydro CHLOROthiazide 20-25 MG tablet 1 (one) time each day at the same time 0 Active lisinopril 20 mg oral tablet (8 sources) Angiotensin Converting Enzyme Inhibitor Start: 04-10-2023 [...] day for 6 days Oct, Active Metoprolol (12 sources) beta-Adrenergic Bridgette Start: 04-06-19 metoprolol as [...] 0 Active predniSONE 5 mg oral tablet (5 sources) take 1 tablet by mouth in the morning predniSONE (DELTASONE) 5 mg tablet Take 1 tablet (5 mg total) by mouth in the morning. 0 Active Spironolactone (5 sources) Aldosterone Antagonist Start: 04-06-19 spironolactone as directed, Refills(s) 0 Start Date: 04/06/23 Status: Ordered Start: 03-26-2023 End: 03-25-2024 take 1 tablet by mouth in the morning spironolactone (Aldactone) 25 MG tablet Take 25 mg by mouth in the morning. 0 03/26/2023 03/25/2024 Active traZODone hydrochloride 50 mg oral tablet (20 sources) Serotonin Reuptake Inhibitor Start: 03-04-2023 take 1 tablet by mouth once daily traZODone (DESYREL) 50 mg tablet TAKE ONE TABLET BY MOUTH ONCE DAILY AT NIGHT 90 tablet 1 03/04/2023 Active Start: 03-17-2018 take 1 mg by mouth twice daily traZODONE 50 mg Tab mg tab(s), Oral, BID Start Date: 03/30/20 Status: Ordered traZODone HCl Ac tive Completed/Discontinued Medications Medication Drug Class(es) Dates Sig (Normalized) Sig (Original) potassium chloride 20 meq extended release oral tablet (14 sources) Start: 03-22-2023 take 1 tablet by mouth twice daily at bedtime Start: 08-18-2022 take 1 tablet by haydee th once daily Klor-Con M20 20 MEQ Oral Tablet Extended Release Take 1 tablet daily Quantity: 90 Refills: 3 Ordered: 18-Aug-2022 Christopher Harrison MD Start : 18-Aug-2022 Active potassium chlori de (K-TAB,KLOR-CON) 10 MEQ CR tablet Take 1 tablet (10 mEq total) by mouth in the morning. 0 Active take 4 tablets by mo uth once daily potassium chloride CR (Klor-Con) 10 MEQ ER tablet TAKE 4 TABLETS (40 MEQ) BY MOUTH ONCE DAILY FOR 2 DAYS. DO NOT CRUSH, CHEW, OR SPLIT. 0 Active Problems Active Problems Problem Classification Problem Date Documented Date Episodic/Chronic Asthma (5 sources) Exercise-induced asthma; Translations: [Exercise induced bronchospasm] Onset: 03-07-2022 03-07-2022 Chronic Cancer of breast (15 sources) Infiltrating duct carcinoma of breast; Translations: [Malignant neoplasm of unspecified site of right female breast] Onset: 04-09-2023 04-02-2023 Chronic Cardiac dysrhythmias (17 sources) Cardiac arrhythmia; Translations: [Cardiac arrhythmia, unspecified] Onset: 11-27-2021 03-30-2020 Chronic Cataract (5 sources) Secondary cataract of right eye; Translations: [Unspecified secondary cataract] Onset: 01-31-2022 01-31-2022 Chronic Essential hypertension (19 sources) Hypertensive disorder; Translations: [Unspecified essential hypertension] Onset: 12-23-2019 04-06-2023 Chronic Headache; including migraine (3 sources) Migraine 04-06-2023 Chronic Hypertension with complications and secondary hypertension (5 sources) 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; Translations: [Hypertensive chronic kidney disease with stage 1 through stage 4 chronic kidney disease, or unspecified chronic kidney disease] Onset: 05-24-2021 11-27-2021 Chronic Immunizations and screening for infectious disease (1 source) Encounter for screening for human papillomavirus (HPV); Translations: [ENC SCREENING HUMAN PAPILLOMAVIRUS] Onset: 12-29-2021 Episodic Joint disorders and dislocations; trauma-related (5 sources) Derangement of right knee; Translations: [Unspecified internal derangement of right knee] Onset: 11-27-2021 11-27-2021 Chronic Osteoarthritis (10 sources) Arthritis of left knee; Translations: [Unilateral primary osteoarthritis, left knee] Onset: 11-27-2021 11-27-2021 Chronic Other circulatory disease (1 source) H/O: artificial organ/tissue; Translations: [Presence of other vascular implants and grafts] Onset: 06-04-2023 Chronic Other nutritional; endocrine; and metabolic disorders (1 source) Obese class I; Translations: [Body mass index (BMI) 30.0-30.9, adult] Onset: 07-14-2022 Chronic Other nutritional; endocrine; and metabolic disorders (11 sources) Obesity; Translations: [Obesity, unspecified] Onset: 07-14-2022 Chronic Other nutritional; endocrine; and metabolic disorders (2 sources) Body mass index 30+ - obesity 04-10-2023 Chronic Other skin disorders (11 sources) Epidermoid cyst of skin; Translations: [Epidermal cyst] Onset: 11-27-2021 03-30-2020 Episodic Other upper respiratory infections (1 source) Acute upper respiratory infection; Translations: [Acute upper respiratory infection, unspecified] Onset: 07-14-2022 Episodic Residual codes; unclassified (6 sources) Edema; Translations: [Edema] Episodic Residual codes; unclassified (1 source) Edema, unspecified; Translations: [Edema, unspecified] Onset: 10-14-2022 Episodic Residual codes; unclassified (1 source) Pain, unspecified; Translations: [Pain, unspecified] Onset: 04-10-2023 Episodic Residual codes; unclassified (1 source) Device in situ 06-04-2023 Episodic Residual codes; unclassified (2 sources) Localized edema; Translations: [Localized edema] Onset: 08-31-2023 Episodic Unclassified (1 source) Contact with and (suspected) exposure to covid-19; Translations: [Contact with and (suspected) exposure to covid-19] Unclassified (1 source) Consult Onset: 04-28-2023 Past or Other Problems Problem Classification Problem Date Documented Date Episodic/Chronic Cardiac dysrhythmias (5 sources) Palpitations; Translations: [Palpitations] Onset: 11-27-2021 11-27-2021 Episodic Chronic obstructive pulmonary disease and bronchiectasis (1 source) Bronchitis, not specified as acute or chronic Onset: 11-11-2021 Resolved: 11-11-2021 Episodic Deficiency and other anemia (5 sources) Iron deficiency anemia; Translations: [Iron deficiency anemia, unspecified] Onset: 03-07-2022 03-07-2022 Episodic Fluid and electrolyte disorders (11 sources) Hypokalemia; Translations: [Hypopotassemia] Onset: 12-23-2019 11-27-2021 Episodic Mood disorders (5 sources) Mood disorders Onset: 03-07-2022 03-07-2022 Nonmalignant breast conditions (2 sources) Lump in lower inner quadrant of right breast; Translations: [Unspecified lump in the right breast, lower inner quadrant] Onset: 04-28-2023 04-28-2023 Episodic Other screening for suspected conditions (not mental disorders or infectious disease) (11 sources) Encounter for screening for malignant neoplasm of cervix; Translations: [Encounter for screening mammogram for malignant neoplasm of breast] Onset: 12-13-2021 Episodic Otitis media and related conditions (1 source) Otitis media, unspecified, bilateral Onset: 11-11-2021 Resolved: 11-11-2021 Episodic Residual codes; unclassified (2 sources) Estrogen receptor positive status [ER+]; Translations: [Estrogen receptor positive status (ER+)] Onset: 04-09-2023 Episodic Residual codes; unclassified (1 source) Other specified postprocedural states; Translations: [Other specified postprocedural states] Onset: 05-08-2023 Episodic Sprains and strains (5 sources) Complete tear, knee, anterior cruciate ligament; Translations: [Sprain of anterior cruciate ligament of unspecified knee, initial encounter] Onset: 04-30-2006 11-27-2021 Episodic Unclassified (1 source) Contact with and (suspected) exposure to covid-19 Z20.822 Onset: 11-11-2021 Resolved: 11-11-2021 Unclassified (6 sources) Excision of lipoma 03-30-2020 Unclassified (6 sources) Never smoked tobacco; Translations: [Never a smoker] Urinary tract infections (5 sources) Recurrent urinary tract infection; Translations: [Urinary tract infection, site not specified] Onset: 01-31-2022 01-31-2022 Episodic Results Test Name Value Interpretation Reference Range Facility MR BREAST BILAT W WO CONT W CADon 09-04-2023 MR BREAST BILAT W WO CONT W CAD MR BREAST BILAT W WO CONT W CAD EXAM: MR BREAST BILAT W WO CONT W CAD, 09/04/2023 12:41 PM INDICATION: Known breast malignancy, postchemotherapy evaluation, assess response to treatment. COMPARISON: MR breast 05/08/2023 right axillary ultrasound 05/08/2023 TECHNIQUE: Breast images obtained utilizing a 1.5T MRI with dedicated breast coil. Three-dimensional, high resolution fat suppressed T1 weighted images were obtained prior to, immediately following, and after sequential delays relative to intravenous gadolinium contrast administration. Precontrast STIR and non-fat suppressed T1 axial images were also obtained. 3D image and subtraction processing were performed using [employer] software. The images were interpreted using image subtraction, reregistration, multiplanar reconstruction, 2D and 3D acquisition and subtracted MIP, BASSEM, Time Activity curves and color mapping. CONTRAST VOLUME: 10 mL Gadavist FINDINGS: There is minimal background enhancement bilaterally. Heterogeneous fibroglandular tissue. Left breast: There is no suspicious enhancing mass or area of non-mass enhancement. Port is present in the upper inner quadrant. Right breast: Extensive multifocal disease is again seen in the right breast with innumerable heterogeneously enhancing masses with central nonenhancement. This extends to the nipple with retraction as before and there is no chest wall involvement. The largest mass at site of biopsy-proven malignancy measures 22 x 24 x 25 mm (AP x TV x CC) , previously 34 x 34 x 37. The area of tumor burden is difficult to measure but overall seems slightly decreased in extent in bulk measuring 69 x 59 x 87 mm (AP x TV x CC) previously 76 x 76 x 80 mm. Lymph nodes: The metastatic right axillary node measures 19 x 14 x 18 mm, previously 32 x 25 x 28 mm The enlarged right internal mammary node has decrease in size measuring 10 x 9 x 14 mm, previously 24 x 16 x 16 mm. No left axillary lymphadenopathy. IMPRESSION: Decreasing tumor burden in the right breast as well as decreased size of right axillary and internal mammary lymph nodes compatible with partial response to treatment. No new areas of disease identified. BI-RADS: BI-RADS 6 - Known Biopsy-Proven Malignancy Recommendation: Follow up with referring physician Continued appropriate surgical and oncologic management is recommended. Finalized by Tawny Kern MD on 09/04/2023 1:55 PM 6 F/U REFER DR [facility] Office Visiton 08-31-2023 Follow-up visit [id number] Yasmin Jones 1970 F Date Provider Department Center 08/31/2023 367-VIVIAN BAZAN CARD [facility] Family History Adopted: Yes Problem Relation Age of Onset Heart attack Father Family Status - Relation Status Age at Father Level of Service:85542 MA OFFICE/OUTPATIENT NEW MODERATE MDM 45 MINUTES Normal [facility] Ambulatory Visit Summaryon 0 06-04-2023 Ambulatory Visit Summary YASMIN JONES :1970 Visit Date:06/04/2023 Ambulatory Visit Instructions Your Care Team Attending Physician - BRENNON JAMESON, Jackson Reynoso Primary Care Physician - RANDY CALLE DO This Is Your Medications List chlorthalidone cyclobenzaprine lisinopril (lisinopril 20 mg Tab) metoprolol spironolactone trazodone (traZODONE 50 mg Tab) Procedures Performed Abdominal hysterectomy, Biopsy of breast, Biopsy of breast, Core needle biopsy of breast using ultrasound (US) guidance, Cystoscopy, Insertion of implantable venous access port, Lipoma of back, Meniscectomy, Repair of anterior cruciate ligament of knee joint, Tonsillectomy. Medications What How Much When Instructions Unchanged chlorthalidone as directed Unchanged cyclobenzaprine as directed Unchanged lisinopril (lisinopril 20 mg Tab) 1 Tablets By Mouth Every day Unchanged metoprolol as directed Unchanged spironolactone as directed Unchanged trazodone (traZODONE 50 mg Tab) By Mouth 2 times a day Allergies Demerol (Rash) Problems Ongoing - Any problem that you are currently receiving treatment for. BMI 30.0-30.9,adult Breast cancer of lower-inner quadrant [...] you for choosing us for your care. Rizwan Anderson [facility] General Surgery Office/Clini c Noteon 06-04-2023 General Surgery Office/Clinic Note Chief Complaint post operative follow up HPI Staff 22 day post operative follow up post port insertion. Denies discomfort. no use of pain medication. Denies bleeding or drainage. Port has been accessed three times without incident. History of Present Illness s/p left subclavian [id number] insertion 3 weeks ago; doing well, mild soreness, no drainage, port working well, no fevers. Review of Systems ROS - Provider Constitutional: no fever, no [...] and are negative or noncontributory. Physical Exam skin: incision without erythema or drainage, no ecchymosis or seroma. Assessment/Plan 1. Port-A-Cath in place (Z95.828: Presence of other vascular implants and grafts) doing well, call with problems/questions. Follow-up No qualifying data available Problem List/Past Medical History Ongoing BMI 30.0-30.9,adult Breast cancer of lower-inner quadrant of right female breast Dysrhythmia, cardiac Epidermal cyst Hypertensive disorder Migraines Obesity Port-A-Cath in place Historical Cardiac dysrhythmia Excision of lipoma Procedure/Surgical History Abdominal hysterectomy, Biopsy of breast, Biopsy of breast, Core needle biopsy of breast using ultrasound (US) guidance, Cystoscopy, Insertion of implantable venous access port, Lipoma of back, Meniscectomy, Repair of anterior [...] lifetime) Tobacco Use:. Never Smokeless Tobacco Use:., 06/04/2023 Family History Patient was adopted Family history is negative Immunizations Vaccine Date Status Comments influenza virus vaccine, inactivated - Not Given Patient Refuses SARS-CoV-2 (COVID-19) mRNA BNT-162b2 vax 12/06/2020 Recorded 2022-07-14: TPV50 SARS-CoV-2 (COVID-19) mRNA BNT-162b2 vax 11/15/2020 Recorded 2022-07-14: TPV50 influenza virus vaccine, inactivated 11/20/2019 Recorded influenza virus vaccine, inactivated 11/14/2019 Recorded influenza virus vaccine, inactivated 12/13/2018 Recorded influenza virus vaccine, inactivated 12/10/2017 Recorded diphtheria/pertussis, acel/tetanus adult 07/07/2017 Recorded influenza virus vaccine, inactivated 01/19/2017 Recorded influenza virus vaccine, inactivated 01/07/2016 Recorded influenza, unspecified formulation 12/01/2015 Recorded influenza virus vaccine, inactivated 12/27/2014 Recorded influenza virus vaccine, inactivated 01/05/2014 Recorded influenza virus vaccine, inactivated 12/29/[address] [facility] Comment on above: Result Comment: Elec tronically Signed By: BRENNON JAMESON, Jackson Mays\Date and Time Signed: 06/04/23 09:37 EDT Operative Reporton Operative Report [id number]#1.00T IFF Normal [facility] RAD - MISCon 05-14-2023 RAD - MIS [id number]#1.00T IFF Normal [facility] RAD - MIS [id number] IFF Normal [facility] RAD MIS [id number]#1.00T IFF Normal [facility] ECG 12-[place] 05-11-2023 ECG 12-Lead [id number]#1.00T IFF Normal [facility] MR Breast - bilateral WO and W contrast Ashwin 05-08-2023 MR BREAST BILAT W WO CONT W CAD BREAST MRI OF BOTH BREASTS- WITH CAD: 05/08/2023 CLINICAL: Preoperative Staging, Right breast cancer abnormal right axillary, internal mammary and subpectoral lymph nodes on recent PET /CT (done at [facility]) PET report also described other foci of increased uptake in the subareolar right breast consistent with other foci of carcinoma images are NOT available for comparison and no size of these foci of uptake was provided. Comparison is made to exams dated: 03/06/2023 mammogram, 03/20/2023 mammogram, 03/20/2023 ultrasound, 03/26/2023 ultrasound biopsy, 03/20/2023 ultrasound biopsy, and 03/26/2023 mammogram - [facility]. CONTRAST VOLUME ADMINISTERED: 10 mL Gadavist intravenously. CONTRAST DISCARDED: 0 mL Gadavist TECHNICAL: All images are generated with the [employer]'s 1.5T MRI employing 8 channel dedicated breast coils (1mm slice thickness with a .2mm gap). This machine employs a specialized trasmit-receive coil. Three-dimensional, high resolution fat suppressed T1 weighted images were obtained prior to, immediately following, and after a delay relative to gadolinium contrast administration. A precontrast T2 weighted image was also acquired. 3D image and subtraction processing was performed using [employer] software. The images were interpreted using image subtraction, reregistration, multiplanar reconstruction, 2D and 3D acquisition and subtracted MIP, BASSEM, Time Activity curves and color mapping. FINDINGS: There are innumerable enhancing masses in the right breast suggesting extensive, multifocal malignancy. The largest of these and the target of recent biopsy is a mass located in the 3 o'clock right breast measuring 3.4 x 3.4 x 3.7 cm. Some central non-enhancement suggests tumor necrosis. Overall the tumors extend over an area measuring 7.6 cm AP x 7.6 cm width x 8 cm CC. Tumor extends to the nipple where there is some nipple retraction. Tumor extends posteriorly to within 1.5 cm of the chest wall. There is also diffuse skin thickening and edema of the right breast. There is a large right axillary node measuring 3.2 x 2.5 x 2.8 cm which is likely metastatic. There are 4-5 additional smaller lymph node with loss of fatty hilum suggesting additional metastatic involvement. There is also an enlarged lymph node along the superior aspect of the right intramammary chain. This node measures 2.4 x 1.6 x 1.6 cm. There are no enhancing or suspicious lesions in the left breast and no significant left axillary or internal mammary lymphadenopathy. IMPRESSION: KNOWN BIOPSY PROVEN MALIGNANCY 1. Extensive right breast malignancy as described above. 2. Several abnormal right axillary lymph node. Same day biopsy will be done (and reported separately) of the largest right axillary node. 3. Abnormal right internal mammary lymph node. 4. The left breast appears normal. Rosemary Gasca M.D. tm/:05/08/2023 14:09:27 MRI BI-RADS: 6: Known Biopsy Proven Malignancy SECTRAPACS Rosemary Gasca MD - 05/11/2023 MR BREAST BILAT W WO CONT W CAD BREAST MRI OF BOTH BREASTS- WITH CAD: 05/08/2023 CLINICAL: Preoperative Staging, Right breast cancer abnormal right axillary, internal mammary and subpectoral lymph nodes on recent PET /CT (done at [facility]) PET report also described other foci of increased uptake in the subareolar right breast consistent with other foci of carcinoma images are NOT available for comparison and no size of these foci of uptake was provided. Comparison is made to exams dated: 03/06/2023 mammogram, 03/20/2023 mammogram, 03/20/2023 ultrasound, 03/26/2023 ultrasound biopsy, 03/20/2023 ultrasound biopsy, and 03/26/2023 mammogram - [facility]. CONTRAST VOLUME ADMINISTERED: 10 mL Gadavist intravenously. CONTRAST DISCARDED: 0 mL Gadavist TECHNICAL: All images are generated with the [employer]'s 1.5T MRI employing 8 channel dedicated breast coils (1mm slice thickness with a .2mm gap). This machine employs a specialized trasmit-receive coil. Three-dimensional, high resolution fat suppressed T1 weighted images were obtained prior to, immediately following, and after a delay relative to gadolinium contrast administration. A precontrast T2 weighted image was also acquired. 3D image and subtraction processing was performed using [employer] software. The images were interpreted using image subtraction, reregistration, multiplanar reconstruction, 2D and 3D acquisition and subtracted MIP, BASSEM, Time Activity curves and color mapping. FINDINGS: There are innumerable enhancing masses in the right breast suggesting extensive, multifocal malignancy. The largest of these and the target of recent biopsy is a mass located in the 3 o'clock right breast measuring 3.4 x 3.4 x 3.7 cm. Some central non-enhancement suggests tumor necrosis. Overall the tumors extend over an area measuring 7.6 cm AP x 7.6 cm width x 8 cm CC. Tumor extends to the nipple where there is some nipple retraction. Tumor extends posteriorly to within 1.5 cm of the chest wall. There is also diffuse skin thickening and edema of the right breast. There is a large right axillary node measuring 3.2 x 2.5 x 2.8 cm which is likely metastatic. There are 4-5 additional smaller lymph node with loss of fatty hilum suggesting additional metastatic involvement. There is also an enlarged lymph node along the superior aspect of the right intramammary chain. This node measures 2.4 x 1.6 x 1.6 cm. There are no enhancing or suspicious lesions in the left breast and no significant left axillary or internal mammary lymphadenopathy. IMPRESSION: KNOWN BIOPSY PROVEN MALIGNANCY 1. Extensive right breast malignancy as described above. 2. Several abnormal right axillary lymph node. Same day biopsy will be done (and reported separately) of the largest right axillary node. 3. Abnormal right internal mammary lymph node. 4. The left breast appears normal. Rosemary Gasca M.D. tm/:05/08/2023 14:09:27 MRI BI-RADS: 6: Known Biopsy Proven Malignancy [facility] (narrative) Pie Digital MR Breast - bilateral WO and W contrast IVOrdered By: Rosemary Gasca on 05-08-2023 [facility] or [facility] Work Phone: Surgical Pathologyon [address] [facility] Comment on above: Result Comment: [facility] [address] [place] [address] Surgical Pathology Consultation ADDENDUM MA Patient Name:YASMIN JONES:1970 (Age: 52)Gender:FTaken:05/08/2023eported:05/11/2023hysician(s):Christy He MD ([phone])Copy To:MD Jessica MosquedalaAccession #:[id number]. Rec. #:[id number]: #[id number] Final Pathologic Diagnosis Right axilla lymph node, ultrasound-guided needle core biopsy: METASTATIC MAMMARY CARCINOMA. Note: ER, MA and HER2 studies are pending Report Electronically Signed Out ssi/05/11/2023Suerika Marquez M.D. Addendum (PHS) Date Reported: 05/12/2023 BREAST BIOMARKER REPORTING TEMPLATE Estrogen Receptor (ER) Positive (percentage of cells with nuclear positivity: 20%); Average intensity of staining: Weak to moderate Progesterone Receptor (PgR) Negative Internal control cells absent HER2 (by immunohistochemistry) Negative (Score 1+) Cold ischemia and fixation times meet the requirements specified in the latest version of the ASCO/CAP guidelines: Yes All external controls reacted appropriately. Methods - Block: A Fixative: Formalin (Formalin-fixed, paraffin embedded tissue) Estrogen Receptor: Food and Drug Administration (FDA) cleared (test/vendor): Confirm/ [place], Primary Antibody: SP1 Progesterone Receptor: FDA cleared (test/vendor): Confirm/ [place], Primary Antibody: 1E2 HER2: FDA approved (test/vendor): Pathway/ [place], Primary Antibody: 4B5 Detection System (ER, PgR and/or HER2): [place] ultraView [place] DAB Detection Kit (indirect biotin-free detection) Scoring Criteria Estrogen Receptor and Progesterone Receptor: Positive (ER only) - 10% or more tumor cells are immunoreactive Low positive (ER only) - 1-10% of tumor cells are immunoreactive Positive (PgR) - 1% or more tumor cells are immunoreactive Negative - less than 1% of tumor cells are immunoreactive HER2 by immunohistochemistry: Negative (Score 0) - No staining observed or membrane staining that is incomplete and is faint/barely perceptible and within in <10% of tumor cells Negative (Score 1+) - Incomplete membrane staining that is, faint/barely perceptible and in >10% of tumor cells Equivocal (score 2+) - Weak to moderate complete membrane staining in >10% of tumor cells or unusual staining patterns (including circumferential membrane staining that is intense but within <10% of tumor cells) Positive (Score 3+) - Circumferential membrane staining that is complete, intense, and in >10% of tumor cells References 1. Micaela SOTO, Humberto ELDRIDGE, Shorty Valdez, et al. Estrogen and Progesterone receptor Testing in Breast Cancer; [place] Society of Clinical Oncology/College of [place] Pathologists Guideline Update. Arch Pathol Lab Med. doi:10.5858/arpa.2905-6143-CH. 2. Bacilio SIEGEL, Humberto TAVARES, Micaela SOTO, et al. Human Epidermal Growth Factor Receptor 2 Testing in Breast Cancer; [place] Society of Clinical Oncology/College of [place] Pathologist Clinical Practice Guideline Focused Update. Arch Pathol Lab Med. doi: 10.5858/arpa.7988-3027-ZG. Electronically Signed Out Abhilash Marquez M.D. Interpretation performed at [facility], [address] [place] [address], License number: [id number]. Clinical History Description: Right axilla tissue. Biopsy procedure: ultrasound; Target: lymph node; Laterality: right axilla; Location: right axilla; BI-RAD: 5; Suspect: lymph node mets. Gross Description Received in formalin labeled WIDMAN, right axilla tissue are 5 pale buckley to yellow-mahmood fibrofatty needle core biopsy segments, ranging from 1 cm to 2.2 cm. The cores are submitted in cassettes A-B. Fixation Time: Tissue removed from patient: 1322 Time specimen placed in formalin: 1326 Cold ischemic time: 4 minutes Total fixation time: 31 hours (2,ns,[id number], m6) . /05/08/2023EAK Specimen(s) Received Right axilla Fee Codes(s): 1; 99636, 89104-ZD, 95803-FH, 39168 Insurance Correspondenceon 0 05-04-2023 Insurance Correspondence [id number]#1.00T IFF Normal [facility] Consent for Procedure/Surger yon 04-14-2023 Consent for Procedure/Surgery [id number]#1.00T IFF Normal [facility] Ambulatory Visit Summaryon 0 04-10-2023 Ambulatory Visit [...] for choosing us for your care. Normal [facility] Consultation Noteon 04-10-19 24 Consultation Note [id number]#1.00T IFF Normal [facility] Lab Reportson 04-10-2023 Lab Reports [id number]#1.00T IFF Normal [facility] Surgical Pathologyon [address] [facility] Comment on above: Result Comment: [facility] [address] [place] [address] Surgical Pathology Consultation Patient Name:YASMIN JONES ADOB:1970 (Age: 52)Gender:FTaken:4Reported:4Physician(s):Christy He MD ([phone])Copy To: Rec. #:[id number]: #[id number] Final Pathologic Diagnosis Right breast, 4:00 mass , core needle biopsy ([place], [place]; [id number], 03/26/2023): - INVASIVE MAMMARY CARCINOMA, [...] Positive (12-15% of nuclear staining, weak staining); MA: Negative; HER2: Negative (0% of cells with uniform intense complete membrane staining). Internal controls for the biomarkers are present and stain as expected. Intradepartmental consultation has been completed on this case by a second pathologist who concurs with the above diagnosis. Report Electronically Signed Out eak/04/21/2023Chayo Wu MD Interpretation performed at [facility], [address] [place] [address], License number: [id number]. Clinical History Invasive ductal carcinoma. Gross Description Received are 10 prepared slides and 1 block labeled [id number] [facility], that are accompanied by the contributing pathologist???s report that bears this patient???s name and the accession number as it appears on the slides. EAK Specimen(s) Received Consult case from [facility], 10 slides and 1 block labeled [id number] Fee Codes(s): 1; 16879 Outside Mammographyon 2023 Outside Mammography [id number]#1.00T IFF Normal [facility] Pathology Noteon 04-07-2023 Pathology Note [id number]#1.00T IFF Normal [facility] RAD - Ultrasound Reporton RAD - Ultrasound Report [id number]#1.00T IFF Normal [facility] BMPon 04-06-2023 Anion gap [Moles/Vol] 10 mmol/L Normal 6-16 [facility] Comment on above: Performed By: #### 2 880839, [id number] ####[facility] [address] [place] [address] BUN/Creat Ratio 18 No Units Normal 10-20 [facility] Comment on above: Performed By: #### 2 404703, [id number] ####[facility] [address] [address] Calcium [Mass/Vol] 10.5 mg/dL Normal 8.9-11.1 [facility] Comment on above: Performed By: #### 2 357528, [id number] ####[facility] [address] [place] [address] Chloride [Moles/Vol] 101 mmol/L Normal 101-111 [facility] Comment on above: Performed By: #### 2 575722, [id number] ####[facility] [address] [place] [address] CO2 [Moles/Vol] 32 mmol/L High 21-31 [facility] Comment on above: Performed By: #### 2 023974, [id number] ####[facility] [address] [place] [facility] [place] [address] Creatinine [Mass/Vol] 1.0 mg/dL Normal 0.5-1.3 [facility] Comment on above: Performed By: #### 2 005618, [id number] ####[facility] [address] [place] [facility] [place] [address] Glucose [Mass/Vol] 90 mg/dL Normal 55-199 [facility] Comment on above: Performed By: #### 2 594482, [id number] ####[facility] [address] [place] [place] [address] Potassium [Moles/Vol] 3.4 mmol/L Low 3.5-5.3 [facility] Comment on above: Performed By: #### 2 696566, 61269614 ####[facility] [address] [place] [address] Sodium [Moles/Vol] 140 mmol/L Normal 135-145 [facility] Comment on above: Performed By: #### 2 030812, [id number] ####[facility] [address] [place] [address] Urea nitrogen [Mass/Vol] 18 mg/dL Normal 5-21 [facility] Comment on above: Performed By: #### 2 397760, [id number] ####[facility] [address] [place] [address] CHEMISTRYOrdered By: SYSTEM SYSTEM on 04-06-2023 Anion [...] Chem Consent for Treatmenton Consent for Treatment [id number]#1.00T IFF Normal [facility] Physician Orderon 04-06-2023 Physician Order [id number]#1.[address] [facility] eGFRon 04-06-2023 eGFR 68 mL/min/1.73 m2 Normal >=59 [facility] Comment on above: Order Comment: Order added by Discern Expert. Performed By: #### 2 947738, [id number] ####[facility] [address] [address] [place] 03-26-2023 L Specimen: [id number] Received: 03/26/23 Status: EUGENIO Berrios Num: [id number] Spec Type: Surgical Subm Dr: Leidy Lopez Tissues: A BREAST CORE NO CALCS (RT BREAST MASS 4:00) Procedures: HE/2, Gross/Micro L4, CK5 6, E CADHERIN, ER, p63, MA Age/ Patient Sex Location Account Attending Physician Alma DeliaYasmin A 52/F LABELL [id number] GUY Khan HE[facility] INFORMATION SPECIALIST-C SPEC NUM: [id number] RECD: 03/26/23 STATUS: EUGENIO BERRIOS NUM: [id number] AMY: 03/26/23 DR: Leidy Lopez ENTERED: 03/26/23 [facility] DR: Edwin Palacios SPEC TYPE: Surgical DEPT: JORGE ALBERTO ROSALES ORDERED: HE/2, Gross/Micro L4, CK5 6, E CADHERIN, ER, p63, MA ORDERED: HE/2, Gross/Micro L4, CK5 6, E CADHERIN, ER, p63, MA Supplemental Report Addendum 1 Entered: 04/02/239 Supplemental for findings of HER2 by immunohistochemistry from [employer]: -Negative, Score 0 Addendum Signed (signature on file) Elvis Mcgregor MD 04/02/23 2039 Pathological Diagnosis Right breast 4:00 mass, biopsy: Invasive Ductal Carcinoma Grade 3 (combined Score Of 8/9). Histologic Grade: Grade 3 Glandular/tubular Differentiation: 3 Nuclear Pleomorphism: 3 Mitotic Rate: 2 Overall Score: 8 Breast Hormone Profile Specimen: [id number] Received: 03/26/23 Status: EUGENIO Berrios Num: [id number] Spec Type: Surgical Subm Dr: Leidy Lopez Tissues: A BREAST CORE NO CALCS (RT BREAST MASS 4:00) Procedures: HE/2, Gross/Micro L4, CK5 6, E CADHERIN, ER, p63, MA Patient: Yasmin Jones [id number] (Continued) Specimen: [id number] Received: 03/26/23 (Continued) Pathological Diagnosis (Continued) Signed (signature on file) Lazarus Chiang MD 03/31/23 1747 Specimen: [id number] Received: 03/26/23 Status: EUGENIO Berrios Num: [id number] Spec Type: Surgical Subm Dr: Leidy Lopez Tissues: A BREAST CORE NO CALCS (RT BREAST MASS 4:00) Procedures: HE/2, Gross/Micro L4, CK5 6, E CADHERIN, ER, p63, MA Patient: Yasmin Jones [id number] (Continued) Specimen: [id number] Received: 03/26/23 (Continued) Pathological Diagnosis (Continued) ER: Weakly Positive MA: Negative Her2: Pending Clinical Information Mass Gross [...] 0.03 Formalin Fixation Time: 14.78 CPT Codes 62480 Specimen: [id number] Received: 03/26/23 Status: EUGENIO Berrios Num: [id number] Spec Type: Surgical Subm Dr: Leidy Lopez Tissues: A BREAST CORE NO CALCS (RT BREAST MASS 4:00) Procedures: HE/2, Gross/Micro L4, CK5 6, E CADHERIN, ER, p63, MA Patient: Yasmin Jones [id number] (Continued) Signed (signature on file) Lazarus Chiang MD 03/31/[address] [facility] BMPon 03-20-2023 Anion gap [Moles/Vol] 9 mmol/L Normal 6-16 [facility] Comment on above: Performed By: #### 1 5472530, 5128852 ####[facility] [address] [place] [address] BUN/Creat Ratio 26 No Units High 10-20 [facility] Comment on above: Performed By: #### 1 0156426, 6948304 ####[facility] [address] [place] [address] Calcium [Mass/Vol] 9.4 mg/dL Normal 8.9-11.1 [facility] Comment on above: Performed By: #### 1 2503711, 4941542 ####[facility] [address]Nun[facility] [address] Chloride [Moles/Vol] 103 mmol/L Normal 101-111 [facility] Comment on above: Performed By: #### 1 6152778, 6112501 ####[facility] [address]Nun[facility] [address] CO2 [Moles/Vol] 32 mmol/L High 21-31 [facility] Comment on above: Performed By: #### 1 6939250, 6920402 ####[facility] [address] [place] [address] Creatinine [Mass/Vol] 0.7 mg/dL Normal 0.5-1.3 [facility] Comment on above: Performed By: #### 1 0446541, 1272921 ####[facility] [address] [place] [address] Glucose [Mass/Vol] 88 mg/dL Normal 55-199 [facility] Comment on above: Performed By: #### 1 1501888, 4848337 ####[facility] [address] [place] [address] Potassium [Moles/Vol] 2.8 mmol/L Abnormal 3.5-5.3 [facility] Comment on above: Performed By: #### 1 0988827, 7292958 ####[facility] [address] [place] [address] Sodium [Moles/Vol] 141 mmol/L Normal 135-145 [facility] Comment on above: Performed By: #### 1 4884288, 3033213 ####[facility] [address] [place] [address] Urea nitrogen [Mass/Vol] 18 mg/dL Normal 5-21 [facility] Comment on above: Performed By: #### 1 5597674, 5843284 ####[facility] [address] [place] [address] CHEMISTRYOrdered By: SYSTEM SYSTEM on 03-20-2023 Anion [...] Consent for Treatmenton 03-02 Consent for Treatment [id number]#1.00T IFF Normal [facility] Physician Orderon 03-20-2023 Physician Order [id number]#1.[address] [facility] eGFRon 03-20-2023 eGFR 104 mL/min/1.73 m2 Normal >=59 [facility] Comment on above: Order Comment: Order added by Discern Expert. Performed By: #### 1 [id number], 6456554 ####[facility] [address] [place] [address] CT [address] Cardiac Scoring Normal -[facility] 250 DO Work Phone: Office Visit (Cardiology)on 09-29-2022 Follow-up visit Diagnoses/Problems Assessed Hypertension (401.9) (I10) Edema (782.3) (R60.9) Class 1 obesity with body mass index (BMI) of 31.0 to 31.9 in adult (278.00,V85.31) (E66.9,Z68.31) Orders Class 1 obesity with body mass index (BMI) of 31.0 to 31.9 in adult Healthy Weight Tips; Status:Complete; Done: [id number] Edema, Hypertension Basic Metabolic Panel; Status:Active; Requested for:87Voc5890; CT Cardiac Scoring; Status:Active; Requested for:93Bqh0072; Patient taking Metformin or Derivatives? : No [...] Recorded: 29Sep2022 02:29PM Heart Rate76, L Radial Ohrezebu677, LUE, Sitting Jpcoytmaj92, LUE, Sitting Height5 ft 11 in Mxysnm720 lb BMI Khqjlwrfiw38.52 kg/m2 BSA Calculated2.22 Tobacco Useb) No PHQ-2 #1. Over the last 2 weeks have you felt down, depressed or hopeless? (If yes, answer PHQ-9 below)No PHQ-2 #2. Over the last 2 weeks have you felt little inter (more content not included)... Normal [facility] Tobacco Screening.on 023 Adult depression screening assessment No [facility] 250 DO Work Phone: Fall risk assessment c) Not medically indicated [facility] 250 DO Work Phone: Tobacco use status CP b) No [facility] 250 DO Work Phone: Tobacco Screening.on 023 Tobacco use status [facility]PH[facility] b) No [facility] 250 DO Work Phone: BMPon 08-15-2022 Anion gap [Moles/Vol] 10 mmol/L Normal -16 [facility] Comment on above: Performed By: #### 2 157328, [id number], [id number] ####[facility] [address] [place] [address] Calcium [Mass/Vol] 9.7 mg/dL Normal 8.9-11.1 [facility] Comment on above: Performed By: #### 2 341550, [id number], [id number] ####[facility] [address] [place] [address] Chloride [Moles/Vol] 102 mmol/L Normal 101-111 [facility] Comment on above: Performed By: #### 2 [id number], [id number], [id number] ####[facility] [address] [place] [address] CO2 [Moles/Vol] 29 mmol/L Normal 21-31 [facility] Comment on above: Performed By: #### 2 098290, [id number], [id number] ####[facility] [address] [place] [address] Creatinine [Mass/Vol] 0.7 mg/dL Normal 0.5-1.3 [facility] Comment on above: Performed By: #### 2 606539, [id number], [id number] ####[facility] [address] [place] [address] Glucose [Mass/Vol] 92 mg/dL Normal 55-199 [facility] Comment on above: Result Comment: If t his glucose result represents a fasting glucose, interpretation should refer to the following reference range: 55-99 mg/dL Performed By: #### 2 [id number], [id number], [id number] ####[facility] [address] [place] [address] Potassium [Moles/Vol] 2.9 mmol/L Low 3.5-5.3 [facility] Comment on above: Performed By: #### 2 030615, [id number], [id number] ####[facility] [address] [place] [address] Sodium [Moles/Vol] 138 mmol/L Normal 135-145 [facility] Comment on above: Performed By: #### 2 032893, [id number], [id number] ####[facility] [address] [place] [address] Urea nitrogen [Mass/Vol] 15 mg/dL Normal 5-21 [facility] Comment on above: Performed By: #### 2 831122, [id number], [id number] ####[facility] [address] [place] [address] Urea nitrogen/Creatinine [Mass ratio] 21 No Units High 10-20 [facility] Comment on above: Performed By: #### 2 178780, [id number], [id number] ####[facility] [address] [place] [address] BNPon 08-15-2022 Int Ctr BNP Pass Normal [facility] Comment on above: Performed By: #### 2 943692, [id number], [id number] ####[facility] [address] [place] [address] Natriuretic peptide B (Bld) [Mass/Vol] 23 pg/mL Normal 5-80 [facility] Comment on above: Performed By: #### 2 358738, [id number], [id number] ####[facility] [address] [place] [address] CHEMISTRYOrdered By: SYSTEM SYSTEM on 08-15-2022 Anion gap [Moles/Vol] 10 mmol/L Normal 6 - 16 mEq/L [facility] Remisol Calcium [Mass/Vol] 9.7 mg/dL Normal 8.9 - 11. 1 mg/dL [facility] Remisol Chloride [Moles/Vol] 102 mmol/L Normal 101 - 111 mmol/L [facility] Remisol Creatinine [Mass/Vol] 0.7 mg/dL Normal 0.5 - 1.3 mg/dL [facility] Remisol GFR/1.73 sq M.predicted among non-blacks MDRD (S/P/Bld) [Vol rate/Area] 105 mL/min/1.73 m2 Normal >=59mL/min/1 .73 m2 [facility] Chem S Glucose [Mass/Vol] 92 mg/dL Normal 55 - 199 mg/dL FT Remisol Potassium [Moles/Vol] 2.9 mmol/L Low 3.5 - 5.3 mmol/L [facility] Remisol Sodium [Moles/Vol] 138 mmol/L Normal 135 - 145 mmol/L [facility] Remisol Urea nitrogen [Mass/Vol] 15 mg/dL Normal 5 - 21 mg/dL [facility] Remisol Urea nitrogen/Creatinine [Mass ratio] 21 mg/mg High 10 - 20 [facility] Remisol Consent for Treatmenton 07-31 Consent for Treatment [id number]#1.00C D:[address] [facility] Laboratory - Chemistry and C hemistry - challengeOrdered By: SYSTEM SYSTEM on 08-15-2022 CO2 [Moles/Vol] 29 mmol/L Normal 21-31 [facility] Niko yuliet Laboratory - Chemistry and C hemistry - challengeOrdered By: Jackson Bettencourt on 08-15-2022 Natriuretic peptide B (Bld) [Mass/Vol] 23 pg/mL Normal 5-80 [facility] HemeManS S No Panel Informationon 08-15 105 {mL/min/1.73_m2} Normal >=59 [facility] [address] DO Work Phone: Comment on above: Chronic kidney disea se could be indicated at eGFR's of less than 60 mL/min/1.73m2. Kidney failure is indicated at less than 15 mL/min/1.73m2. 10 {mEq/L} Normal 6-16 [facility] [address] DO Work Phone: 102 mmol/L Normal 101-111 [facility] 250 DO Work Phone: 2.9 mmol/L below low threshold 3.5-5.3 [facility] [address] DO Work Phone: 138 mmol/L Normal 135-145 [facility] 250 DO Work Phone: 9.7 mg/dL Normal 8.9-11.1 [facility] 250 DO Work Phone: 21 {No_Units} above high threshold 10-20 [facility] 250 DO Work Phone: 0.7 mg/dL Normal 0.5-1.3 [facility] 250 DO Work Phone: 15 mg/dL Normal 5-21 [facility] 250 DO Work Phone: 92 mg/dL Normal 55-199 [facility] 250 DO Work Phone: Comment on above: If this glucose resu lt represents a fasting glucose, interpretation should refer to the following reference range: 55-99 mg/dL Pass Normal [facility] 250 DO Work Phone: Physician Orderon 08-15-2022 Physician Order [id number]#1.00C D:[address] [facility] eGFRon 08-15-2022 GFR/1.73 sq M.predicted among non-blacks MDRD (S/P/Bld) [Vol rate/Area] 105 mL/min/1.73 m2 Normal >=59 [facility] Comment on above: Order Comment: Order added by Discern Expert. Result Comment: Metal Lather medina kidney disease could be indicated at eGFR's of less than 60 mL/min/1.73m2. Kidney failure is indicated at less than 15 mL/min/1.73m2. Performed By: #### 2 [id number], [id number], [id number] ####[facility] [address] [place] [address] Office Visit (Cardiology)on 07-21-2022 Follow-up visit Diagnoses/Problems [...] lose weight.; Status:Complete - Retrospective Authorization; Done: [id number] Class 1 obesity with body mass index (BMI) of 30.0 to 30.9 in adult, Edema, Hypertension Basic Metabolic Panel; Status:Active - Retrospective Authorization; Requested for:[id number]; Brain Natriuretic Peptide BNP; Status:Active - Retrospective Authorization; Requested for:[id number]; [facility] Maintenance IO EKG Electrocardiogram- 12 Lead; [...] negative for complaint. Vitals Vital Signs Recorded: [id number] 08:15AMRecorded: 07Vyb9096 08:14AM Tzdsyijj893, RUE, Mfeupwk179, LUE, Sitting Lxewvxjzz40, RUE, Vlmtlon64, LUE, Sitting Heart Rate59, Apical Height5 ft 11 in Hknmqc205 lb BMI Mipgavaffb41.82 kg/m2 BSA Calculated2.2 Tobacco Useb) No PHQ-2 [...] Screening.on 023 Adult depression screening assessment No [facility] [address] DO Work Phone: Fall risk assessment a) No falls within the last year [facility] [address] DO Work Phone: Tobacco use status CPHS b) No -[facility] 250 DO Work Phone: Family Medicine Office/Clini [...] day(s), # 21 cap(s), Refills(s) 0, Pharmacy: [facility]/pharmacy #[id number], 180, cm, 07/14/22 14:05:00 EDT, [...] diphtheria/pertussis, riri (more content not included)... Normal [facility] Comment on above: Result Comment: Elec tronically [...] to help relieve symptoms, such as: ? Svkm-hxl-ywteygj cold medicines. ? Cough suppressants. Coughing is [...] other clear broths. General instructions ? Take hkxl-tzi-fzizqaj and prescription medicines only as told by [...] and water are not available, use hand timber management specialist. ? Avoid touching your mouth, face, eyes, [...] Get help (more content not included)... Normal [facility] PAP ACOG PANEL 2: 30 to 65on 01-03-2022 . . Normal [facility] Comment on above: Result Comment: Perf ormed at: WB Performed By: #### 4 [id number] #### [facility] [address] [address] [address] Daniel Mcgregor Age Gdln ACOG Testing 30-65 Normal [facility] Comment on above: Performed By: #### 4 [id number] #### [facility] [address] [place] [address] Dr. Daniel Mcgregor DIAGNOSIS: Comment Normal [facility] Comment on above: Result Comment: NEGA TIVE FOR INTRAEPITHELIAL LESION OR MALIGNANCY. Performed at: WB Performed By: #### 4 [id number] #### [facility] [address] [place] [address] Dr. Daniel Mcgregor HPV Aptima Negative Normal Negative [facility] Comment on above: Result Comment: This nucleic acid amplification test detects fourteen high-risk HPV types (16,18,31,33,35,39,45,51,52,56,58,59,66,68) without differentiation. Performed at: =G Performed By: #### 4 [id number] #### [facility] [address] [place] [address] Dr. Daniel Mcgregor HPV Genotype Reflex Comment Normal [facility] Comment on above: Result Comment: Crit eria not met, HPV Genotype not performed. Performed at: WB Performed By: #### 4 [id number] #### [facility] [address] [place] [address] Dr. Daniel Mcgregor Methodology: Comment Normal [facility] Comment on above: Result Comment: This liquid based ThinPrep(R) pap test was screened with the use of an image guided system. Performed at: WB Performed By: #### 4 [id number] #### [facility] [address] [place] [address] Dr. Daniel Mcgregor Note: Comment Normal [facility] Comment on above: Result Comment: The Pap smear is a screening test designed to aid in the detection of premalignant and malignant conditions of the uterine cervix. It is not a diagnostic procedure and should not be used as the sole means of detecting cervical cancer. Both false-positive and false-negative reports do occur. . Performed at: WB Performed By: #### 4 [id number] #### [facility] [address] [place] [address] Dr. Daniel Mcgregor Performed by: Comment Normal [facility] Comment on above: Result Comment: Roxann Ambriz, Manager Warehouse (ASCP) Performed at: WB Performed By: #### 4 [id number] #### [facility] [address] [address] [address] Daniel Mcgregor Specimen adequacy: Comment Normal [facility] Comment on above: Result Comment: Sati sfactory for evaluation. No endocervical component is identified. Performed at: WB Performed By: #### 4 [id number] #### [facility] [address] [address] [address] Daniel Mcgregor MG MAMM SCREEN 3D VONNIE CADon 12-13-2021 MG MAMM SCREEN 3D VONNIE CAD Patient: YASMIN JONES Exam Date: 12/13/2021 : 1970 Gender:F Ordering : DR KAYE JARQUIN Admission #: [id number] Family : DR DAYANA BASHIR . Order #: [id number] CLICK HERE TO VIEW EXAM RADIOLOGY REPORT [...] Treatments None Family Cancers None LOCATION: [facility] BREAST COMPOSITION: Heterogeneously dense,which may obscure [...] Lopez MD on 12/13/2021 at 08:39 Normal [facility] COVID Quick Testingon 2021 Result Negative Likely[employer] Other BASIC METABOLIC PANELon 08-31 BUN/CREATININE RATIO NOT APPLICABLE Normal 6-22 [facility] Comment on above: Performed By: #### 5 616, 20254, 37900 #### [facility] of [address], [address] [place] [address] Hat Forming Machine Feeder: Heraclio Miller MD Calcium [Mass/Vol] 9.7 mg/dL Normal 8.6-10.4 [facility] Comment on above: Performed By: #### 5 616, , #### [facility] [place] [address] Hat Forming Machine Feeder: Heraclio Miller MD Chloride [Moles/Vol] 103 mmol/L Normal 98-110 [facility] Comment on above: Performed By: #### 5 616, , #### [facility] of [address], [address] [place] [address] Hat Forming Machine Feeder: Heraclio Miller MD CO2 [Moles/Vol] 30 mmol/L Normal 20-32 [facility] Comment on above: Performed By: #### 5 616, 83840, 54306 #### [facility] [place] [address] Hat Forming Machine Feeder: Heraclio Miller MD Creatinine [Mass/Vol] 0.77 mg/dL Normal 0.50-1.03 [facility] Comment on above: Performed By: #### 5 616, 16936, 25857 #### [facility] of [place] [address] Hat Forming Machine Feeder: Heraclio Miller MD GFR/1.73 sq M.predicted among non-blacks MDRD (S/P/Bld) [Vol rate/Area] 94 mL/min/{1.73_m2} Normal > OR = 60 [facility] Comment on above: Result Comment: The eGFR is based on the CKD-EPI 2020 equation. To calculate the new eGFR from a previous Creatinine or Cystatin C result, go to https://www.kidney.org/professionals/ kdoqi/gfr%5Fcalculator Performed By: #### 5 616, 84470, #### [facility] [place] [address] Hat Forming Machine Feeder: Heraclio Miller MD Glucose [Mass/Vol] 91 mg/dL Normal 65-99 [facility] Comment on above: Result Comment: Fasting reference interval Performed By: #### 5 616, 22457, #### [facility] [address], [address] [place] [address] Hat Forming Machine Feeder: Heraclio Miller MD Potassium [Moles/Vol] 3.4 mmol/L Low 3.5-5.3 [facility] Comment on above: Performed By: #### 5 616, 81013, #### [facility] [place] [address] Hat Forming Machine Feeder: Heraclio Miller MD Sodium [Moles/Vol] 140 mmol/L Normal 135-146 [facility] Comment on above: Performed By: #### 5 616, , #### [facility] [place] [address] Hat Forming Machine Feeder: Heraclio Miller MD Urea nitrogen [Mass/Vol] 11 mg/dL Normal 7-25 [facility] Comment on above: Performed By: #### 5 616, 70235, #### [facility] [place] [address] Hat Forming Machine Feeder: Heraclio Miller MD IRON, TIBC AND FERRITIN MARUE [facility] ([place], [place]) 09-21-2021 % SATURATION 10 % (calc) Low 16-45 [facility] Comment on above: Order Comment: FASTI NG:YES FASTING: YES Performed By: #### 5 616, 72787, 04446 #### [facility] of [place] [address] Hat Forming Machine Feeder: Heraclio Miller MD Ferritin [Mass/Vol] 11 ng/mL Low 16-232 [facility] Comment on above: Order Comment: FASTI NG:YES FASTING: YES Performed By: #### 5 616, 97805, 24659 #### [facility] [address], [address] [place] [address] Hat Forming Machine Feeder: Heraclio Miller MD IRON BINDING CAPACITY 542 mcg/dL (calc) High 250-450 [facility] Comment on above: Order Comment: FASTI NG:YES FASTING: YES Performed By: #### 5 616, 04286, 40075 #### [facility] [address], [address] [place] [address] Hat Forming Machine Feeder: Heraclio Miller MD IRON, TOTAL 54 mcg/dL Normal 45-160 [facility] Comment on above: Order Comment: FASTI NG:YES FASTING: YES Performed By: #### 5 616, 60014, 60733 #### [facility] [address], [address] [place] [address] Hat Forming Machine Feeder: Heraclio Miller MD TSH W/REFLEX TO FT4on 2021 TSH W/REFLEX TO FT4 3.86 mIU/L Normal [facility] Comment on above: Result Comment: Refe rence Range > or = 20 Years 0.40-4.50 Ranges First trimester 0.26-2.66 Second trimester 0.55-2.73 Third trimester 0.43-2.91 Performed By: #### 5 616, 47083, 98678 #### [facility] [address], [address] [place] [address] Hat Forming Machine Feeder: Heraclio Miller MD Consent Formson 09-09-2021 Consent Forms [id number]#1.00O [facility] Coding Summaryon 09-03-2021 Coding Summary HTMLBase 64 GiwmtftjEYy2uPm+PGhlYWQ +QY4ZEQQyH04hqUWqnD2SI0 pZZP1HAHROGYAQSZ0OVX3kw VD2VMveV4WwidDe ZyxefGIsSD92TGt7TQV1cOe cDYbvaL3tcOElU6b1FhAiPB 37yU38AAvbNYHiVqT9MlEny jsgbWFy Q4ssGxLyjBCpCwa+PHRhYmx lIHdpZHRoPScxMDAlJyBzdH zjTL9eEv6qEUXyOBCobJayq HNlOiBj f8jxADYsXSsjUL0spAphT5T stFX7FQRgv6f8Yg28hLB+PH PpSFG0oQnhSVibm914LlPdq 5moZCE8 rZKsXYpiTWP8S68bq8E4MUZ xMXMfVCW2bZS7fL1kgDjxur bhP8TaeYCbYkV3BSX6pSNof V0hgMfi kckyhG9fKfp+L95CPI2THZP PSG5HJli3Y3ApAtzgrTJ+PC 29ZBBmIJ83yTXrfOJlx7gxi Ut5RlMh SRQdKGH1yPdhSHlnb1FjRMB uZ72oyMHty7J1BYEhzIctdS YmOkPzdWT3hR6dWEkayvbnb 2hvdzsn Nxgca1imtm96oU40H79aIJe dIDUwTKP6GFIdRIKybBqcja 2jxG4lQz3+VEhwo6dqd6kza Eg1RhQt GMRoxbCirMegYLO4v5ZvDc9 0E1PxpKozp1KoSeg9vk56rJ Zqy4D0kOM3ZIplWGTxxG1rW WxlZnQ6 YALpPzHtiB39jJJtXHteWs0 tqTehkAboBJ0dZDCbhlzzGB TraS6iROKbkWLpkOoiGR1gY TBpbjtm i770CyHgBHI5AKQxlRBzQ5V moH9pImWuOQSdVXAcU8UlfU TxZEhpW037RIsuGhH9MOAhx jUqU6Ka XOZydDmfDsI4d5E5Ds1Ut0A edibtKXM6SWdgTBQ1JuT3Fm ScMfJ6D6BnYiy8YKZekZieR X2pH2Uz TYYcgukftbdexPT4UBWoEAJ amX62fLEyVWecGb8nc5R3u4 65ZXBnNZPssG97Ju5voCbsV TBwdCBU eI0kngezn2nnpukkTkNxULL bHWg3MSr8WHJluFhwQlEqMV N8NlD5PMK6jFWtpV0pfXpfe mekvP9h Oyc+N95kbX2mCVA9PSA4ghk kIFQtpqGmAP76XT24A5AdSt wvdGFibGU+PGRpdiBzdHlsZ Z8aKoSc n5cho4CmSUlnO6UfKEJwTXg kNus7BRPwKNA4nPD2bP8fUA WzYHlnd3K0qKR0C1LptbGss x4xh4aa ZXSrUTvtC22osTWba6K1ADA cmMG5KQPbbWdmRlUesV82Xq c+SPBvzWysa8JyDmbqr1vwc 6jsdLp3 RvWwOUEfrjRleUdrPOP3y9W dNi48D02rVSxoDGBzQLSbJZ GeXSEptMzdzs7gbL7xTk5+P GNvbCB3 nCP4rC2zVLKeUzL3LOlmZ07 5OgQggSKcUgkwg3afy1dumA k0WkJaPMWtceWjzZxpCFY4t 6XvSh21 Z68zTUhuJCLcSTCdBINeIPX avKiszc2pvX5fZs4+PC9jb2 rfci52kT32kGR+UXIwRNY0h WxlPSdw PUYbpQ7uYFwbDxD8TIIzHyJ dyL64qEUvZKnzPk8xnZaitY odSR7eWJMknhlau892OoUtg 2xkIDEw wKZnKKxuWKQ8B48zk6Z7MZZ pAAAhCNQ6cLS4xC6pxMdoor ogbGVmdDsgdmVydGljYWwtY YzeQ789 IHRvcDsnPlBhdGllbnQgTmF pZGg6I9MbTek0MCSxvHjaMI 2odIHlXJxtLp3inEeczZpxU F9aKHAu nrcva060WwLid8rsKUZnjPF iHZwgCQV1A91yd5C0YAJeQM QwEKW1sMC7jA3tfYjwpnatj GVmdDsg blJpbXjhRDgcWNaiD500XXC vqZhzUlEemvWpBRSgaEJ4CO 14IX93oUNbq1J7eYK5F5FhF GRpbmct aaulaID3ZKAzPQSauL14Po1 ywIzrVl9eTNEnNAK3ZUYgqR ZoK1YzrO8mDsOcNXBfOHVuS 3RleHQt KJccH439XVhsExE4QKOfrnD mX7DhSBStgDtzQkB9k3H2Nu 3KR2U7DM04JV87bOHkl8X3x KT6S7Uu BHGtgbhuaaxazIF7LSJiIEK chP53Sv9czFqlIo1vDEVaFQ L5JLZqkRYgY9EmlZ8bMxYfJ DAwMDAw M3DkuMToRLqaP290UMcaBaH 5WTDrhvReA2IpYXSeoFodBq Z8u2A5Ll1QLKi6SF13FS48l UPps6T9 sRD0B9KsMDHzqjoghpwpvQM 2LZEtXMPlqK79Kz6boIseUr 2nFRWsNII5HXJzoPYbE9Lqq O8qEcMz YVAmRQMvP5KmxAQvCApjH90 0LZrcUqF1BZQeooOhU1HpCU WynIygTcW4d0L8Iq1PGITeI O99FSE9 iFO1OV97BG16H1EbDemgmQY ibGU+PHRhYmxlIHdpZHRoPS eiNLDnVmRudPmnSF8aOz4lH GVyLWNv kCahkSNuWnDjl5pySHJfNJv fFS4ktGmpC8ZaaSX8IYOwz5 r5Bg21L36zG8AifHI+PGNvb ZP4qKW0 rW1zInKmBtF9UMmeT166HrV rlNZmRuqwb2gjr4dlkBa0De P4FBTrexEuaXajPTH7g4MaR k52L36l IHdpZHRoPSIxNSUiIHZhbGl ceu4taJ9mDj4+NKRpgWH6sL K4yL4nLqLlSxU4SUoxA028B nRvcCIv Ixlxd0zsl6pjsYx8IyHqGJI prxHipLitMRW5v0YhAs91M1 UldDogh9VbDxz6ui17jSEei 0W3qBU5 L5HwLAWsnzqohSCajQhyFI1 vDIObaqywBSVpcR6zVOObV4 x6BwApEeT3ZDyvI7DdyfV9Y DEwcHQg QWocUUO3E11vp8D8CWMkEPP gSZC8bFQ2lP3vdDalwbmxpN VmdDsgdmVydGljYWwtYWxpZ 246IHRv mNjlEBKcdH7vXPUhlLYcgHg eGG8vONMsdkhkXavFTN8IXq wgRUxJWkFCRVRIIEFOTjwvd GQ+PHRk APZ9kLsfGNxaPRVyhD1ySID bL6e5ElWkQtH2ZRtqU1SnIM JrxcclYr66wX9iLvKvBqH8Q MlmQ8Nl enW0LRLiaCAjDCraHEU6X92 jr1X2OFRuSBKgIYE7hJQ6eL 1hbGlnbjogbGVmdDsgdmVyd GljYWwt QOqzG335ZTRntMbgFyN7WzK aRcW8YeX9R5RlAkv5ZKDugJ suGQ9maFWfMXddBe0tjDuej PnhDI0v IMAqkzgkNRRqoU5wMFTklTF efKxxTF5pSRLcoundm391On LpBSX6OKLodJLdB1EumI4uD iAjMDAw YQNuG5GwvDUmNGecA749CXn zPiG0RXRzvrErK5BiPYRmiJ eqEuT4d0N2Jh46VXMZLRLpg zwvdGQ+ NYMfVAR0sOwoZMakQDQujW0 vGXBkG5z3HkPnCzE7ZBroG2 RfCIOqppbyJw68sG1aBhLwH fK2AOvd Z3OjktZ9LESufSJkACtrIWJ 1D88sl6L6XAGoRMUyDQZ2jN Z6wD6blUygpkzybIOumIsre mVydGlj VVouXQcjU635FMRlqAxjLcO FTUFMRTwvdGQ+QDYnHKJ1lE arUSwdNZSfvP5eZGZkK4q7W iAwLjA1 UMxyH6OwPTGnyvqxCt24uC1 yOzLhPmJ8SLbjC5DzrpO1PE BedEBdHSjwEND6N57hr2X0G CMwMDAw XVW1fLC8eW9nlNxystjumKQ mdDsgdmVydGljYWwtYWxpZ2 46IHRvcDsnPkRheSBTdXJnZ JH9UZ65 UI55F3McDjdraNTblKS+PHR hYmxlIHdpZHRoPScxMDAlJy FrjZpjYY3fAx2bRIJcEBNnv GxhcHNl AhIit0zuQMHcJZtpJM4brRf iC8JijMA4NGWgn1y5Zo20O2 8mR5ScoGG+VEAvwIB2nBP0o S8dPvSn BuQ7XNmiI764TaQroLUwVfz jm2yze2eshYc7MhZaKKNrsb QteDmoWBJ8h9UtRp93S93wX HdpZHRo ZHHnEQZhDQMkiJcqqf0gyH1 wIi8+WPNwkKI6pUG7oD1wXq PnWzA0GKkpR620KoVayUYkJ hkcY53r I1ZvdWS+HTAmNgw5NSDggCf gVA7jkQMrJMwcIl8wFMG7Uw NuTfPoBTlrP7XsEKIfjscgz mlnaHQ6 YSOwQVCbqI84Kn7ygDxlTo4 hJPIzQPH3LJVngIHjR0SeiQ 7bPvMnXRJcDGGvZ0JhoQCeT RveQ207 SDmeMqM9TYAqizYxP4UnBWF suHrmCdY8j6L2Wq2AcKutkK UbHQ3kZrJqZMk8F3UfCmk5C CBzdHls FJ0fmYWpDAfdJt9kiKqblIg pRC1tTGSccvrrd686MxLyc0 zyIPWohVSoIDzwWWC8F38ny 0O7AMCm HRUgCMS3eJY6wQ6tyKgjyhu gbGVmdDsgdmVydGljYWwtYW ykV858CSTgzKylXdDUKgf0L 7EmYut2 VBQgvFmjBC9jvFClHAjcDt8 tvKtloDicBN6iAVKstnrgj2 96SwOjx0vzEVTndQMxZPurB PL6M38j z0W9DGXpWLVgBRS6oJJ5hF6 hbGlnbjogbGVmdDsgdmVydG vrVRslAHumT746SXAirEixN i0NYdo0 W7IkLgu9BDTxgLleSL1icBF xRCutRa6suAjghCceBB4dUY Vduultd048WySbk5gdRPKjb HQgVGlt YRZ3L70zl4N2DNNuIEQaACS 1dRE9xP8sjQtyhnyxiTEdpO mgtpLejRquQYsiPIzaF194E HRvcDsn PlBheWVyOjwvdGQ+UI14jz2 5W3NbAubaQkl5UGCwMYO3jC C4uL2rJBPkIQrgi0W8dVB0O 2JvcmRl ci1 (more content not included)... [facility] Coding Queryon 08-27-2021 Coding Query [...] the Op Note by addendum. Thanks! Maddi Montenegror [Electronically Signed on: 08/30/2021 13:41 EDT] Hua Oglesby DO [Verified on: 08/30/2021 13:41 EDT] Hua Oglesby DO [Transcribed on: 08/27/2021 07:54 EDT] [facility] Consent Formson 08-27-2021 Consent Forms [id number]#1.00O [facility] Telemetry Stripson Telemetry Strips [id number]#1.00O [facility] Anesthesia Noteon 08-26-2021 Anesthesia Note Patient: [...] on: 08/26/2021 14:58 EDT] Christopher Cadet MD [facility] Anesthesia Note Patient: YASMIN JONES Age: 50 [...] = 1 tab(s), PO, Daily Potassium Chloride (Kfb-Pwxe-Jok 10) 10 mEq oral tablet, extended release 10 mEq = 1 tab(s), PO, Daily traZODone 50 mg oral tablet 50 mg = 1 tab(s), PO, Once a day (at bedtime) Problem list (past medical history): All Problems Cardiac dysrhythmia / SNOMED CT 3774914792 / Confirmed HTN (hypertension) / SNOMED CT 6450151323 / Confirmed Histories Family History: No family history items have been selected or recorded. Procedure history: Arthroscopy of knee (604011833) on 01/21/2021 at 50 Years. Comments: 01/21/2021 8:41 Carolina Pickering RN right Abdominal hysterectomy (127744688). Arthroscopy of knee (057720868). Lipoma (674716924). Comments: 01/04/2021 11:19 Milana Melton RN excision History of tonsillectomy (5439335184). ACL - Anterior cruciate ligament rupture (858965073). Comments: 08/12/2021 13:15 Carolina Heller RN repair [...] Oriented. Review / Management Laboratory Results Plan [place] [employer]#(ASA) physical status classification: Class II. Anesthetic Preoperative Plan Anesthesia: General. . Anesthetic plan, risks, benefits, and alternatives discussed with the patient and/or family. Patient verbalized understanding. Informed consent was given. Anesthetic technique: General anesthesia, Patient presented with diastolic HTN; this was also noted on her PST chart. Had a lengthy discussion with her regarding this. Her primary care ([facility]) recently changed her from Toprol to Coreg... Patient has reported no changes and has noted her diastolics have been above 100 for months . We discussed treating her with some labetolol here with the hope of moving forward today with her surgery. We also discussed putting a better buttermaker continuous churn plan in place regarding her hypertension. Her and her both seemed to express understanding. . [Electronically Signed on: 08/26/2021 13:29 EDT] Fullam, Christopher MD [Verified on: 08/26/2021 13:29 EDT] Fullam, Christopher MD [facility] Coding Summaryon 08-26-2021 Coding Summary HTMLBase 64 UqdaefjzCSb1pDn+PGhlYWQ +BT8REIZhU72hdLVhpY0YG3 iRSR4FBRNHEGKDOD1JLD8qb TP3VSbtQ3ChpqMr NuqnmPEcQX17HLv7NNM4pLi gLBtptE8ouAHxS0w4CjAxYI 69zA13JZxsGKTtYdH6KlZoi jsgbWFy G7ztJkEytUYoGjc+PHRhYmx lIHdpZHRoPScxMDAlJyBzdH tqRW7nKg5vYOGrVNWnyGiia HNlOiBj v5bqLICaHMfyDC3ocUgtP1T mzPR2QGVop6l8Pl25dPU+PH ZyCTR0cWjmAHbfk830HvHmv 7qcRFY3 jNZgDYmvJDX3J90ht1P2QJV fXEFtMHI3rDP0yR7ahFidsm fzN3LwqKKcJbX1EQB2oSCml U1vbUtd ruchsH4sHaf+O31ACF2ZEWA RNT7YUbx6G8ZzFywmeNP+PC 50YKTnLI99mGZbgZCan5zfm Lq6ZuJl JQCdJOQ5kFvjRWehl4UeYGR uD89bvOBah0R0TESmmByolN LgCiTcgZM4zJ4uHYbomtomh 2hvdzsn Aykoj0jeuu47yT79N51fHOs rEXXwTGB5TCKaVWVxgJpquw 6zsC0oBq4+REyol8chq0zbk Mi0PdLu XVOfydVynDvqUZC2u0IiMm4 2B7NpyLvnn0OyAty3yb10fW Hfu1V1yHM7CVgcVHWvaS7eI WxlZnQ6 NQQiHtQvvN81qYKoDMdlAp9 szMabgVtvZI7yEFUvswryUX AhiA7hIYJiqNBocBeuBT4rC TBpbjtm y482LeKqGPF4YUSsrJNrT6G wdA6hQbVaMWOeXLPvL8BynN TjINrlD640DQypTcA0EYZhw cFwU1Gh MMZlqVmsKuA5y7J4En8Ii7X ralbwZWF8FRveNZT9EhN6Vs AkMfP2I0DtGhf7WMXxlFbqA R6cJ7Iq ILHipxoepdmwsAB4IEFcVJD uqI70bVXlBIrqYp7xb6W9s1 44RKVzEYFrsY19Xv6pvCtaV TBwdCBU oP6qlcmcj5vaxfhxYrHgSNW mTMd9CWe1LUAnxZhcZzTrAF E1KrU7DZS0pNMnvU9xyDjcq ctvcY3m Oyc+B78yuT9nLTQ8ZYJ8qwd nNNPxxgPqVH70AY69J8GnQb wvdGFibGU+PGRpdiBzdHlsZ G6bVbIf c9zlh9AdLAdvC7GcDHDsDKg hCtr4JFVdWJC6eRS7sG9gIS UbOLcdb3G3oQK9X5VqiaCdw i4yx8qy PGSfDNhpK60mbLWbc0R5CPT daFU3CDWrbRvtKoMplL68Yy c+ZVKmtRswb6GdRrjep3xqg 2rdiVx2 FiTxPCUubiTbfIhyDPJ0a6M xKo94C01eUZsxDPChLTYvTY CeSTVrmXeqeh5ajQ0mUw5+P GNvbCB3 uND2yT2aCMShKkH1CHyhU21 8HnVfkOYvVvroq7lbr2mniB n4XtWoRXPzncAypJcxXDG3z 1XuDq02 U03wRFqwDSGrCOQbNTDdYQY agJtmdm1tqP0uPn3+PC9jb2 yath32wD68kWA+KJQyYCT7v WxlPSdw XXRptT0dJTisEoN8MSZjKjV vjM52oJDqNPogQu0fyWzflJ bpHU5aTWKmqdibr629OqWrt 2xkIDEw bLGvAUytFXF4E15ln6F4IIX zAPGzYBI3tQN2bQ5nmUsfli ogbGVmdDsgdmVydGljYWwtY BccG039 IHRvcDsnPlBhdGllbnQgTmF jXMz7G8LfVxn9QPOrtFiwYW 0kiCClNBbbAb8kkKpciYlkX K0iBNIa tdrqz219IxHyf3mlLRNhnJJ dIPrsXIV1Q84id1D0DXKkKG BdTDK5hCK0kV8ktAkxixlla GVmdDsg chGztUwrCMrjHRmkX307AJK fwYlfKiEzkxNsYSFwiTG5NQ 88QN99yXNoo9T9qBR7S5GgR GRpbmct xydygLR1NFKbFGZrrR07Zr2 mwXhgDt1uQWSjBKL3AZNibC EtF9SxpE0cDbJuGXVdWOQeV 3RleHQt ZEvyT296THyvQiQ1GNYewrK hI3SkPRLrcLfjIpT7y2E6Fx 3YD6K6PW49HH99wFPgk6I5p ZL6H2Km XIKoognoodchrZY7TLZgCAZ ioE00Bv0kfQitXf1sAGWsOI E1YBZxdNUcE9WdyL9wSjPwD DAwMDAw N3AdqDRrPSoxR787PJlsPaT 6GCXijmTeU2GjRXPowZxdZi V6k0S8Ua1KEFw1UB68BI47l FZyp1V2 oHR9X4XcFGNungwxndnubNE 0XPNvYOGrsX12Fi0woKkzOd 4cVYHiBKX1SVHlnQHoN1Byh T2rSvYv ENYsDWIhD2FvfIYpQCxvZ98 2GLylPbT1IJGgooNhE8VmPZ TydZtvRcC4c3Z2Tb2WSKSjG A43BPG6 iWY6YV46XD14U8EeZwdieQZ ibGU+PHRhYmxlIHdpZHRoPS azHJHyMzWdaCfuLN6fSd0rW GVyLWNv cJluvJGwQcSxu9tzCAOqIYc kOU9axLoxF8MbqYH1KGIke1 g0Qp81C00zM3CkhDV+PGNvb XN2iRQ3 pH5vSsHkHnW1BChfO618EfG kjDYaYfruf5btg9pxkMq0Yl A2FRPzztGfiSxcPPZ9b3XtE e83N34a IHdpZHRoPSIxNSUiIHZhbGl qja5jhM2jDh7+AUUtuVK6nZ Q3bB1wLdErYrQ5ZSatA359C nRvcCIv Shawy6pds5njwYm7BrUnBLO lqiMnxCqoMDU5j2GxDp11U7 MgzNygr4FvNkn1yn58eSXcc 2E5oDH5 Z3VsGEIuskhipOCjiEdsGH9 iAWNmgzhgNQPnjV9gDPNrB6 p4ZeWyKqA1AZenH4NbgyZ1S DEwcHQg GKaqMER8H97eh0O6UEOfPXF hKSX6qQU0zE0hnTjckvsezM VmdDsgdmVydGljYWwtYWxpZ 246IHRv wMrsGYApnQ0oCNYyhWIgxAq sED4iAZJgmgcbMoxEQN4ZKk wgRUxJWkFCRVRIIEFOTjwvd GQ+PHRk ZVJ2rGyiZDopEWTngJ7pCLA xZ3q8YoZcCdO0YItwF3VcMB PwbzkyGw84dG8yPbNiWeF5H SsnH0Ae saR3XOEdsNBeDZvhHML6U40 xn5T9ODUpRQZkSPK8gKB8fE 1hbGlnbjogbGVmdDsgdmVyd GljYWwt WFhaD898KIKtgYtoUvZ2YfZ kInI0XpZ9E5QiAht8VOSehU mcOS3wmSWtROgqHl2leVtxh YctVR8v EQCpbdpbZDVbvO9eFBKftSP anCmvCO2pRVTkjigjv175Bm ExWML2AFTmvHNmR1TyoA4wI iAjMDAw GOAmM6TyzAPpEInjJ309HUd fIkJ0IZWcxdQbM1NlNGDgmJ ewTkM0o5P9Bx26TJMADKHjq zwvdGQ+ LTJcVPO2hEgrARbxARErlW7 vFLFeU4i4NjEePwI4AWviN1 TnIHBgpwsrPi77cX9aDkDbE iI1HCoj B5NpaqL5RSUjpKTtJTlkAEN 5L64le3Y4ZTXkCLNxYCO6cL F3wN1ntPbwqgrrsBSfnZufc mVydGlj PGgvBOdmE268QCUtpEmdOmH FTUFMRTwvdGQ+ZOHsLNC4gR kgPVlzEDBliX0nTTFlZ3w3E iAwLjA1 AYfnA5LkBGFbxsbyDw41qL9 qZwEiPsJ5LKavQ9TpnmX0LZ JewEPqLHpqKSX2G37mu7L6V CMwMDAw FUG9bYA4eN1ukKbdqcnswLP mdDsgdmVydGljYWwtYWxpZ2 69ICOmqPruVe1EOE39AH65Q 3RyPjwv dGFibGU+PHRhYmxlIHdpZHR tXCjjCRCgTrMrnCkuTU3xBm 9yZGVyLWNvbGxhcHNlOiBjb 2xsYXBz EXfqJZ7wxEgnK9RjvBZ2KEY ue8x8Lh29S18lZ5XpcDT+PG JkiXM4gKL6gJ0wOdZfXnC5Q ZxpA828 QcNhmDUuWhvcj9vvs9tzkKi 4GmQxRAMvtjCnwDspUDT6s4 XxDx84G20hKPltYWHrJBYtP CUiIHZh lOoiuz1ncV1yOq9+PGNvbCB 9wMT7vZ1cKzLpSlA1BTupF1 49LaTzhRXhPasdW47gV8Caf XA+PHRy Hko9TGLcmHmfAK8eeFReVIr dFj4wPDR1TlZfHzLcIMzkQ3 NuEZPmjlfbfaimkUG1HOUrK DUwaW47 Ul2knUyqFq7zZPOoYLT3MZH akXIyA6QrwC2wXuMgTWFzWV ZvL5CssIYaABeaY622YIyxF yB4VYBu eiYqU8HjBALhvFaeLlI3d6W 2Ft2PzJosxELgEX4kXxVhXJ a7U9XwLly4OXHaxSrtBG8km GFkZGlu Ps5wfVpjzJgpNC3wCADbclo vr215ClNlh1tvYPXgvBQyZN hmYQN4H08ph7Z6KOTmVAXrQ PM4qQD6 wX2atYvckpikoXPayPmhooX zgQtrSWaxAUsyL599SUDfqQ fySeWJMie2J7DsHnx5KGFqc QojHW7w jTCcWSueXy0sdNimrZxzND5 iPRByzufap499BbCnj9kcDH UtuYCwWSypMLF6X07pz1C7T CMwMDAw ZHE7yMY0wH6ikDpujriopEK mdDsgdmVydGljYWwtYWxpZ2 34TOOafEtuNd5GEer5G8OzF ja0MPJn cKgqBV8qrCQfJPbeNt5kxIk eaUdcSP0kYPCtanvag467Hr Xvb4phQNPapVScJOrvEOG4G 88ok3R8 ZJXlXXTlMEI9mOL8uH8viKd nbjogbGVmdDsgdmVydGljYW rtJTupV289WVDksWkqIgEnu WVyOjwv dGQ+XS13wf14Z7PeLmleMqr 4MWErHKW7uDV5uT8qAZEkLL nxd9R5fCU9T6KthsCgnx8rl 2xsYXBz ZTo (more content not included)... Normal [facility] Inpatient Patient Summaryon 08-26-2021 [place]patient [place] [address] Patient Discharge Instructions Name: NICRUTHYYASMIN : 1970 Patient Address: [address] [place] [address] Primary Care Provider: Name: RANDY CALLE After you are discharged if you find you have any questions, please, call [phone] ext [phone] to speak to a nurse. Discharge Diagnosis: Internal derangement of left knee Prescription Information: If you have been given a prescription for narcotics, seek immediate medical attention if you have any difficulty breathing or any sudden status changes such as confusion and sleepiness. If you or anyone you know is experiencing suicidal thoughts, mental health, alcohol and/or drug addiction problems; contact the [facility] 22/09 Crisis Hotline -Text 4HPKY td 236565. If you received any narcotics, sedation, or [...] business decisions or sign any legal documents [facility] would like to thank you [...] Have Not Changed Other Medications acetaminophen-hydrocodo ne (!-Kendleton 5 mg-325 mg oral tablet) 1 tab(s) Oral Every 6 hours as needed as needed for pain. carvedilol (carvedilol 12.5 mg oral tablet) 1 tab(s) Oral 2 times a day. cyclobenzaprine (cyclobenzaprine 10 mg oral tablet) 1 tab(s) Oral At bedtime as needed for spasm. hydroCHLOROthiazide (hydroCHLOROthiazide 25 mg oral tablet) 1 tab(s) Oral every day. potassium chloride (Potassium Chloride (Men-Jwhs-Mut 10) 10 mEq oral tablet, extended release) [...] you can keep with you. acetaminophen-hydrocodo ne (!-Kendleton 5 mg-325 mg oral tablet) 1 tab(s) [...] Oral every day. potassium chloride (Potassium Chloride (Xrz-Rbuq-Nqq 10) 10 mEq oral tablet, extended release) [...] flow is (more content not included)... Normal [facility] MAGR Intraoperative Recordon 08-26-2021 [facility] Intraoperative Record MAGR Intra-Op Record Summary Primary Physician: Hua Oglesby DO Finalized Date/Time: 08/26/21 15:08:30 Pt. Name: YASMIN JONES/Sex: 1970 FEMALE Med Rec #: [id number] Physician: Hua Oglesby DO Financial #: [id number] Pt. Type: D Room/Bed: / Admit/Disch: 08/26/21 [...] Role Performed Surgeon - Primary Anesthesiologist of Diesel Locomotive Crane Operator Record Time In 08/26/21 14:02:00 08/26/21 14:02:00 08/26/21 14:02:00 Time Out 08/26/21 14:56:00 08/26/21 14:56:00 08/26/21 14:56:00 Procedure Arthroscopy Knee(Left) Arthroscopy Knee(Left) Arthroscopy Knee(Left) Last Modified By: Jeannine Eid RN, Erica RN Baumer, Erica RN 08/26/21 14:54:01 08/26/21 14:54:01 08/26/21 14:54:01 Entry 4 Entry 5 Entry 6 Case Attendee Dorothy Archer RN CORRUGATOR HELPER, Laxmi Navarrete CORRUGATOR HELPER, Shanique BROWN Role Performed Diesel Locomotive Crane Operator Vamp Liner Scrub Personnel Time In 08/26/21 14:02:00 08/26/21 [...] Procedure Yes Primary Surgeon Hua Oglesby Modifiers Left Efra GALLEGOS Surgeon Comment LEFT KNEE [...] By Jeannine Eid (more content not included)... [facility] MAGR PACU Recordon MAGR PACU Record MAGR PACU Record Summary Primary Physician: Hua Oglesby DO Finalized Date/Time: 08/26/21 15:37:09 Pt. Name: YASMIN JONES/Sex: 1970 FEMALE Med Rec #: [id number] Physician: Hua Oglesby DO Financial #: [id number] Pt. Type: D Room/Bed: / Admit/Disch: 08/26/21 11:01:00 - Institution: PACU Case Times MAGR Entry 1 In PACU I 08/26/21 14:56:00 Discharge from PACU 08/26/21 15:30:00 I Last Modified By: Elvira Navarro RN 08/26/21 15:37:04 Finalized By: Elvira Navarro RN Document Signatures Signed By: Elvira Navarro RN 08/26/21 15:37 [facility] MAGR Postoperative Recordon 08-26-2021 MAGR Postoperative Record MAGR Phase II Record Summary Primary Physician: Hua Oglesby DO Finalized Date/Time: 08/26/21 16:25:07 Pt. Name: YASMIN JONES/Sex: 1970 FEMALE Med Rec #: [id number] Physician: Hua Oglesby DO Financial #: [id number] Pt. Type: D Room/Bed: / Admit/Disch: 08/26/21 [...] Signed By: Elvira Navarro RN 08/26/21 16:25 [facility] Preoperative Recordon 0 08-26-2021 [facility] Preoperative Record MAGR Pre-Op Record Summary Primary Physician: Hua Oglesby DO Finalized Date/Time: 08/26/21 15:18:23 Pt. Name: YASMIN JONES MIGUEL RosenO.B./Sex: 1970 FEMALE Med Rec #: [id number] Physician: Hua Oglesby DO Financial #: [id number] Pt. Type: D Room/Bed: / Admit/Disch: 08/26/21 [...] By: Elvira Navarro RN 08/26/21 15:18 Normal [facility] Operative Report - Surgeon/P aster [...] on: 08/30/2021 13:39 EDT] Hua Oglesby DO [facility] Patient Handouton 08-26-2021 Patient Handout [...] be done to rule of a DVT. [facility] Progress Note - Nurseon 08-01 Progress Note - Nurse Pre-op call done, instructed to arrive @ 1100 on 08-26-21, NPO after midnight, and need for ride to and from hospital-verbalized understanding. [Electronically Signed on: 08/23/2021 13:36 EDT] Carolina Painter RN [Verified on: 08/23/2021 13:36 EDT] Carolina Painter RN [facility] 2019 Novel Coronavirus (CoVI D-19), KYLE Garcia 08-22-2021 SARS-CoV-2 (COVID-19) RNA KYLE+probe Ql (Unsp spec) Not detected Invalid Interpretation Code Not Detected [facility] Comment on above: Order Comment: [id number] [facility]# [phone] Result Comment: This nucleic acid amplification test was developed and its performance characteristics determined by [employer]. Nucleic acid amplification tests include RT- PCR [...] detected) result in this assay. Performed At: [address] [id number] José Manuel Chery PhD Ph:[phone] Performed By: #### [id number] ####[facility] (DEFAULT)[address] [place] [address] Coding Summary 08-15-2021 Coding Summary [facility] XkrmqozpOPo6tHr+PGhlYWQ +HT8NOMJnO74egPIivN4KK5 qEZO5VYUFTDXZDYE9RUR5jl LZ6QXmvT2CzggVy SrtgyUYnTW29XCc5YHP6mIx nIGeijJ8xoJZgE1s2RbZpJN 97yK24VBqpYMObOyN3LqTyi jsgbWFy Y7ttQdHvqQRaGjf+PHRhYmx lIHdpZHRoPScxMDAlJyBzdH cnSD7gPt2hFQTkMNPwoMzod HNlOiBj b4fuJYBtZVjtXJ6puYseN0R pgBB4VCNqf3v2Hd03hKD+PH XeAYB7uAsoBStqj516CcApz 5wuMFB2 sUJnMEkkXMQ6C03eh5I9WAS pOXLkYHA7rKK4uG7ycNhbcj guW7OfuXWwBqV2ITG7uSYfp J7zmXee ygzubO5zMfl+F35NOG8DSYC LEZ3ACgv1N4YeOsdjdGG+PC 47DZKpDV64yBXbbBFhy0sfl Gx5CeEz OTAaBQE5wYbfTSjdd9ScHVD bE76kbKCfw4U2RXRbxJamsY PwYuVbuLR7hG3oIVeczohps 2hvdzsn Ufzpq8mrel06hC66V73jKXw wCGAzAEM9HUXwLVRsbRvtmt 9wrX5lQa1+DKjku2ebv4umv Ci6IwFt BOBqgpKyyIxqVWN2k7ZoRd7 7A9JakSers5BoWuj9mb52bF Qzl3F3kYL8QDssUWPmqY3lF WxlZnQ6 XFIcRgMjhV99yPQmJArrBw9 dwFlxbSavAG0dZFVzajnuZG YinI4cZTVbtNYrsIygUI6eR TBpbjtm y314RnCqTET3TNDunQKwZ5Q dvV4dIiGqIHMsRMHxE5DctU MkJXfxC537YPywKsN1UUZks xAjA5Zd ZNDhsBlqBxP8f3D9Ne6Ay1V vveiqMXO6RZlcAZR8OzN6Ks HdAlY2P1NuBqa7PJQfiIrpT P6oX4Ej VEZhcbslpacgaNE6CZQfFDL bcG87nIDrFLexMo7gb0I8k3 31SIRtEGOxtJ16Wg2faRxkD TBwdCBU iX4dhegzu5zgjfkvXsUvJXH cWLu7UXi5UPMkbRquIbOkTG F7JmD5MJC9vDFtmR2qaEfqt coohZ6c Oyc+C68dpH7oIMA2TVB4yzx lCSVyavQfYR10KA62S6RyHd wvdGFibGU+PGRpdiBzdHlsZ K3vUcUz p5lmu3KbYWlpN7YwPAErCQf fEoj7KLVyWAY6kSH2mT5kDA HfNYbpo3B7mRW8J4FlpeKuk m3dq1dl BAVxOUidC63asUFlk0V7KXJ nzLB0TLIzfBoqEjJrkH98Zk c+VMQpfNpqk9NrRjfat4jpq 9asxRg1 ZrWdFXSaolCxvAhyOAX7q4W yOz77W16gIDiaIHGcBJOsDP WbPVPhwBjmjy3yfE4bLy0+P GNvbCB3 lDH8lU7xOXHiAjI5ZPsuL80 5MrLnrZByFbggq6zyo0ufgT r0PmUmDPDmbeJciLhuGAV2a 9VbRt69 J80kUYnyZLLhWFKnKMGkENC asBuhez6jaK3vZf7+PC9jb2 sqlp23xE17mGR+YNLbDRS1i WxlPSdw GMQhuB6wWOfwXuE7YFKeSvA hlM25wXReNMkbBo5wbRmugQ iqRE5pZTOvtwjds428QgIex 2xkIDEw eJYhJQtxNQU7J17dt6A6ICQ xQYKzMIK3xXN6hX3puGorar ogbGVmdDsgdmVydGljYWwtY EcjZ587 IHRvcDsnPlBhdGllbnQgTmF dMMe5E6RwDsl2PSCytUqcBF 4rmXKjWWyfXk7bgMzxxIafF I6mTHMe hncmz180MuEod4mxKEKhtNS vZYhcAZA8E36nq4Y5OHNbXF UkOSE7zPO3hG6suWmwuitqy GVmdDsg uuGrtUmrGBtwWYiqV221VOC zuHamZoGmwiWrMZJpzSM2CV 02WO82wMWcj9F3vWM7L1QoK GRpbmct yxnlzCR0BQLvZACvaM55Hm0 tdWevEh5oKZIsZOU0ESRibS AnT1IkwD2yQxAeBXShFPQkS 3RleHQt NUsnU051EJkuFcN9IUWgydD lB1NpRFMolMkzMzY7q8F3Ax 0WS0E0TW30CK33pOMdm6O9s WJ3M1Jg CRJslrftqrwjfDR1PXLoFZC clQ77Sv1lmCheIa4wEFPjIA V1OKVtfCYwU6WgsH5yAzNsQ DAwMDAw E6IjvUEhAXfgE649UTfvCoC 8ONPwewQmC5UyWPWdiGtqAr Z6g1H7Bo5HOQw8SD32PC00p KKqp6M0 cBN0H5MoYGOcqzewewsodYV 1RRRkMHJlxC68Sf2lfOaeGs 1bFRDmZSS6FXHrzGSwH5Vlb H8pLxEg MRNoRRSrC8DwcEDmWTwoJ79 1ZFfcGlS3MJAvoxMoB3DiYY YjuMioWrH9x9Q1Qr4FBCVaI X88HCN3 zHE3FC39GE59S7BtGjecqTF ibGU+PHRhYmxlIHdpZHRoPS tnCHCuPwUsgOrqYJ4eEb4pW GVyLWNv qXfoeTAhNbMzr5zxSNKfPJx bCN9neFanV9NnpJH4LEEqi6 x6Ai77L16oH1PpaQY+PGNvb ZM6aQA4 lW3hUfVwWhG4KFnbO962AvZ pnQAyExgoi3oit4tqwMe8Qu F5HWVnasPcoMmgLOS7x4ImI i87V86n IHdpZHRoPSIxNSUiIHZhbGl bks6taF0bWn9+CPLfnOR9tR Y4xF5iAzNePjL4YJxgM798S nRvcCIv Jedlz3cmv7fpjIx7RuVlTGP wutHjwPduDBR3i8MgZs88A6 UjgOjuq0UvPbl6gw54wVMvv 0M4zQF3 E5LbSWRuldbtdOYbuNviRD2 yZVDmbbkfOUTcpI3pSCHtY8 z7PrGhYqE1ZAkjB7KdasK7Z DEwcHQg VPisGHP5H42zb9L9DJKiSYR gIVZ1aVO3fZ8agMoklpcxqG VmdDsgdmVydGljYWwtYWxpZ 246IHRv qWwkHZZcpY7xIJJgvAFvmMp gAJ6tHLKjqyjlUkjEPO3MAb wgRUxJWkFCRVRIIEFOTjwvd GQ+PHRk HUF5bPqmOBjoNOCvxT7uDOB uB6x2ZyJhNbN1PFgeM1BbGN QdoxbtYg22uS2lLtVuIjJ5J BbeV1Mm yyG9IJWgsQTfWFukIBN9T54 oh1L5VQKlEXVxTTN6zOC5bF 1hbGlnbjogbGVmdDsgdmVyd GljYWwt NZimY876BTHkoGmwZhF1XhZ kUjP0VtA6G7OoQpn7VMTucB ksMJ7itXVjJFskBv9utVghn MfdCB1p ASDatdzxNTXclD7xOBTijJY nbQemQR9xLYDieuuyl873Gf YwYBE0WAJutJDyO2NjeL5dY iAjMDAw CTTlA1QvqQHmLDxvO942DXv rCiH1BUKgxrEmP5NxYLBigH ylWeG5u8C1Xb76ODJZYMEoc zwvdGQ+ IFDsWKH5aCcdQHzuXLJypH1 gGTLdH2z3OpWsZiP9SEkxH9 LqWWDlpadyMr85hI9jCsCaT pP4JBsv C4AhswR7BNJrkPSqRAxzYRV 3A72yr7F0GHGoKFXrBGX0tM R1bU2deIblgbbsvXEzjTwrc mVydGlj ZRyuNGtnW779NUGceIbqIjQ FTUFMRTwvdGQ+CGDpOHV7rL dkJFidAFQtwD4xJJWuQ5v8Z iAwLjA1 HNswN4KpKHOvqmhsEq40nT1 cNnJdPiR4YFprS3LjobO5JK VrsCXrFEpzWEW2W05nr8J3X CMwMDAw CZE5xNK7fP1pdXfruxfeiHB mdDsgdmVydGljYWwtYWxpZ2 39MXNwnUmfBx2LFF86MR48Z 3RyPjwv dGFibGU+PHRhYmxlIHdpZHR kALilHPWiAqQqyEzcUK4fZm 9yZGVyLWNvbGxhcHNlOiBjb 2xsYXBz NIirWF0qrVaqP9TmbQC8ZXS ky4p5Cd02A74bW6TegKJ+PG FyjCE2eHW9gL1sZcUwCsR7K NvmZ410 YxYyzFVdEncfw8nez7qjfAe 6XyUjGGAgzdEovZznWMX3l1 YoIr26M32wSRwdICBaSUDtZ CUiIHZh vFcdvx7vhF9hOc7+PGNvbCB 3rFI6rJ2cOcXmYvK6YVowC7 41EnPebEQmLbgiA01mR6Bkz XA+PHRy Aff4PEOqmVvtMU1wwWHnPSg jSf6yTTF3UtUaDwXhIMuoV2 WgTZEfjzfuvmrrlOY9TMCvN DUwaW47 Bw9izWvqGo1yTKSoTKU9RQS buBFeY3VcxC8eEdUxJEMhAI PcG8CwdMLqSYfhV846EUttN oV2FGOg jdUgD5AsSPMkpOjqQxJ4x6B 6Ar7KhUqktHKcOY1fQzDbAZ q2H4LmXaw3VVPmdHhcKG5ny GFkZGlu Vh8eeZfnvFsaOT7xZQViwcb js490KuQjn8urVEZouNMzMV klFBP4E25oz8R8KELmSDUrT SY7gRN5 dY7xpCafqzfdkQAvlAqjizU daTklVBumDHbbI655TRJroB bxWyTROup9E2CxXhq2SFEim AjbWW3m uIAuIPacTq7qxVwthOftGB5 jLXTmechux734OjOjp1apTW RonAHkEPanELI1U60vo7O4Y CMwMDAw OAN8pAO7pJ2lcJzgzyijbJV mdDsgdmVydGljYWwtYWxpZ2 60PHSzrAbfKx7UHkd0T1NmS nc6TFHt jWgeRW6soGAiVUhgDq3mhVp qoBjcIE5tDBChlzlay046Ng Xyi3xrSCFtiEOhCKmpXST2B 20ed7X8 WJExGVDeAGN9iQJ2wY6hnTg nbjogbGVmdDsgdmVydGljYW cdSDhwS035NIVvzVkbMiQjb WVyOjwv dGQ+VQ89iu12O3DgDhvhZun 1OYUiLOF7hDK8bS1aNVSoUG ksm6I3mMC0S0UjucCxxf6ds 2xsYXBz ZTo (more content not included)... Normal [facility] Inpatient Patient Summaryon 08-15-2021 Inpatient Patient Summary [address] [address] Patient Discharge Instructions Name: YASMIN JONES : 1970 Patient Address: [place] [facility] [facility] [address] Primary Care Provider: Name: RANDY CALLE After you are discharged if you find you have any questions, please, call [phone] ext [phone] to speak to a nurse. Discharge Diagnosis: Prescription Information: If you have been given a prescription for narcotics, seek immediate medical attention if you have any difficulty breathing or any sudden status changes such as confusion and sleepiness. If you or anyone you know is experiencing suicidal thoughts, mental health, alcohol and/or drug addiction problems; contact the [facility] 22/09 Crisis Hotline -Text 4HXBL to 367812. If you received any narcotics, sedation, or [...] business decisions or sign any legal documents [facility] would like to thank you for allowing us to assist you with your healthcare needs. The following includes patient education materials and information regarding your injury/illness. YASMIN JONES has been given the following list of follow-up instructions, prescriptions, and patient education materials: Follow-up Instructions With: Address: When: MYESHA VINSON [address] [place] [address], [place] [address] Business (1) 09/03/2021 9:15 AM With: Address: When: RANDY [place] [address] Business (1) Medications During the course of your visit, your medication list was updated with the most current information. The details of those changes are reflected below: Medications That Were Updated - Follow Below Instructions Other Medications Updated: potassium chloride (Potassium Chloride (Hhi-Sxgn-Wee 10) 10 mEq oral tablet, extended release) [...] Oral every day. potassium chloride (Potassium Chloride (Jyc-Kvfn-Zio 10) 10 mEq oral tablet, extended release) [...] for Disease Control and Prevention October 2013 [facility] Patient Handouton 08-15-2021 Patient Handout [facility] Progress Note - Nurseon 06- Progress Note - Nurse Dr. Small reviews PAT information and testing results. Ok to proceed, no orders given. [Electronically Signed on: 08/14/2021 12:02 EDT] Dary Gallegos RN [Verified on: 08/14/2021 12:02 EDT] Dary Gallegos RN Normal [facility] .Auto Diff 1on 08-12-2021 Auto King % 8 % Normal 03-13 [facility] Comment on above: Performed By: #### 1 [id number], [id number], [id number] ####[facility] (DEFAULT)[address] [place] [address] Baso Abs# 0.1 x10 Normal 0.0-0.2 [facility] Comment on above: Performed By: #### 1 [id number], [id number], [id number] ####[facility] (DEFAULT)[address] [place] [address] Basophils/100 WBC (Bld) 0.9 % Normal 0.2-2.0 [facility] Comment on above: Performed By: #### 1 [id number], [id number], [id number] ####[facility] (DEFAULT)[address] [place] [address] Eos Abs# 0.3 x10 Normal 0.0-0.4 [facility] Comment on above: Performed By: #### 1 [id number], [id number], [id number] ####[facility] (DEFAULT)[address] [place] [address] Eosinophils/100 WBC (Bld) 3.9 % Normal 0.9-4.0 [facility] Comment on above: Performed By: #### 1 [id number], [id number], [id number] ####[facility] (DEFAULT)[address] [place] [address] Lymph Abs# 2.6 x10 Normal 1.3-2.9 [facility] Comment on above: Performed By: #### 1 [id number], [id number], [id number] ####[facility] (DEFAULT)[address] [place] [address] Lymphocytes/100 WBC (Bld) 30 % Normal 14-48 [facility] Comment on above: Performed By: #### 1 [id number], [id number], [id number] ####[facility] (DEFAULT)[address] [place] [address] King Abs# 0.7 x10 Normal 0.0-0.8 [facility] Comment on above: Performed By: #### 1 [id number], [id number], [id number] ####[facility] (DEFAULT)[address] [place] [address] Neut Abs# 5.0 x10 Normal 1.5-9.2 [facility] Comment on above: Performed By: #### 1 [id number], [id number], [id number] ####[facility] (DEFAULT)[address] [place] [address] Neutrophils/100 WBC (Bld) 58 % Normal 44-88 [facility] Comment on above: Performed By: #### 1 [id number], [id number], [id number] ####[facility] (DEFAULT)[address] [place] [address] Standardon 08-12-2021 eGFR Non AA >60 Invalid Interpretation Code [facility] Comment on above: Performed By: #### 1 [id number], [id number], [id number] ####[facility] (DEFAULT)[address] [place] [address] eGFR AA >60 Invalid Interpretation Code [facility] Comment on above: Result Comment: Metal Lather medina Kidney disease could be indicated at eGFRs of less than 60 ml/min/1.73m2. Kidney Failure is indicated at less than 15 ml/min/1.73m2 Performed By: #### 1 [id number], [id number], [id number] ####[facility] (DEFAULT)[address] [place] [address] Anion gap [Moles/Vol] 14.0 mmol/L Normal 5.0-19.0 [facility] Comment on above: Performed By: #### 1 [id number], [id number], [id number] ####[facility] (DEFAULT)[address] [place] [address] Calcium [Mass/Vol] 9.6 mg/dL Normal 8.9-10.3 [facility] Comment on above: Performed By: #### 1 [id number], [id number], [id number] ####[facility] (DEFAULT)[address] [place] [address] Chloride [Moles/Vol] 102 mmol/L Normal 101-111 [facility] Comment on above: Performed By: #### 1 [id number], [id number], [id number] ####[facility] (DEFAULT)[address] [place] [address] CO2 [Moles/Vol] 25 mmol/L Normal 21-32 [facility] Comment on above: Performed By: #### 1 [id number], [id number], [id number] ####[facility] (DEFAULT)[address] [place] [address] Creatinine [Mass/Vol] 0.72 mg/dL Normal 0.60-1.30 [facility] Comment on above: Performed By: #### 1 [id number], [id number], [id number] ####[facility] (DEFAULT)[address] [place] [address] Glucose [Mass/Vol] 100.0 mg/dL Normal 74.0-118.0 [facility] Comment on above: Performed By: #### 1 [id number], [id number], [id number] ####[facility] (DEFAULT)[address] [place] [address] Osmolality 275 mOsm/L Invalid Interpretation Code [facility] Comment on above: Performed By: #### 1 [id number], [id number], [id number] ####[facility] (DEFAULT)[address] [place] [address] Potassium [Moles/Vol] 3.4 mmol/L Low 3.6-5.1 [facility] Comment on above: Performed By: #### 1 [id number], [id number], [id number] ####[facility] (DEFAULT)[address] [place] [address] Sodium [Moles/Vol] 138.0 mmol/L Normal 136.0-144.0 [facility] Comment on above: Performed By: #### 1 [id number], [id number], [id number] ####[facility] (DEFAULT)[address] [place] [address] Urea nitrogen [Mass/Vol] 10 mg/dL Normal 8-26 [facility] Comment on above: Performed By: #### 1 [id number], [id number], [id number] ####[facility] (DEFAULT)[address] [place] [address] Urea nitrogen/Creatinine [Mass ratio] 14.0 mg/mg Normal 4.6-16.2 [facility] Comment on above: Performed By: #### 1 [id number], [id number], [id number] ####[facility] (DEFAULT)[address] [place] [address] CBC w/ Auto Diffon 2 Erythrocyte distribution width (RBC) [Ratio] 14.6 % Normal 11.5-15.0 [facility] Comment on above: Order Comment: CBC C LOTTED. PATIENT CALLED BACK FOR RECOLLECT. Performed By: #### 1 [id number], [id number], [id number] ####[facility] (DEFAULT)[address] [place] [address] Hematocrit (Bld) [Volume fraction] 35.0 % Normal 33.7-40.4 [facility] [facility] Comment on above: Order Comment: CBC C LOTTED. PATIENT CALLED BACK FOR RECOLLECT. Performed By: #### 1 [id number], [id number] ####[facility] (DEFAULT)[address] [place] [address] Hemoglobin (Bld) [Mass/Vol] 11.0 g/dL Low 11.3-15.9 [facility] Comment on above: Order Comment: CBC C LOTTED. PATIENT CALLED BACK FOR RECOLLECT. Performed By: #### 1 [id number], [id number], [id number] ####[facility] (DEFAULT)[address] [place] [address] Instr WBC 8.6 x10 Invalid Interpretation Code [facility] Comment on above: Order Comment: CBC C LOTTED. PATIENT CALLED BACK FOR RECOLLECT. Result Comment: CBC RECOLLECTED @ 08/12/2021 15:15:27 EDT BY MHDMITCHELL. GILMORE. Performed By: #### 1 [id number], [id number], [id number] ####[facility] (DEFAULT)[address] [place] [address] Man Diff? Auto Normal [facility] Comment on above: Order Comment: CBC C LOTTED. PATIENT CALLED BACK FOR RECOLLECT. Performed By: #### 1 [id number], [id number], [id number] ####[facility] (DEFAULT)[address] [place] [address] MCH (RBC) [Entitic mass] 25 pg Normal 24-34 [facility] Comment on above: Order Comment: CBC C LOTTED. PATIENT CALLED BACK FOR RECOLLECT. Performed By: #### 1 [id number], [id number], [id number] ####[facility] (DEFAULT)[address] [place] [address] MCHC (RBC) [Mass/Vol] 31 g/dL Normal 26-37 [facility] Comment on above: Order Comment: CBC C LOTTED. PATIENT CALLED BACK FOR RECOLLECT. Performed By: #### 1 [id number], [id number], [id number] ####[facility] (DEFAULT)[address] [place] [address] MCV (RBC) [Entitic vol] 79 fL Low 81-100 [facility] Comment on above: Order Comment: CBC C LOTTED. PATIENT CALLED BACK FOR RECOLLECT. Performed By: #### 1 [id number], [id number], [id number] ####[facility] (DEFAULT)[address] [place] [address] Platelet 491 x10 High 138-427 [facility] Comment on above: Order Comment: CBC C LOTTED. PATIENT CALLED BACK FOR RECOLLECT. Performed By: #### 1 [id number], [id number], [id number] ####[facility] (DEFAULT)[address] [place] [address] Platelet mean volume (Bld) [Entitic vol] 9.4 fL Normal 6.3-10.2 [facility] Comment on above: Order Comment: CBC C LOTTED. PATIENT CALLED BACK FOR RECOLLECT. Performed By: #### 1 [id number], [id number], [id number] ####[facility] (DEFAULT)[address] [place] [address] RBC 4.41 x10 Normal 3.70-5.30 [facility] Comment on above: Order Comment: CBC C LOTTED. PATIENT CALLED BACK FOR RECOLLECT. Performed By: #### 1 [id number], [id number], [id number] ####[facility] (DEFAULT)[address] [place] [address] WBC 8.6 x10 Normal 3.5-10.5 [facility] Comment on above: Order Comment: CBC C LOTTED. PATIENT CALLED BACK FOR RECOLLECT. Performed By: #### 1 [id number], [id number], [id number] ####[facility] (DEFAULT)[address] [place] [id number] MRI Knee w/o Lefton 07-27-19 MRI Knee [...] by Michael Pappas on 07/28/2021 1331 Normal [facility] BASIC METABOLIC PANELon 05-01 BUN/CREATININE RATIO NOT APPLICABLE Normal - [facility] Comment on above: Order Comment: FASTI NG:YES FASTING: YES Performed By: #### 1 [id number] #### [facility] [address], [address] [place] [address] [employer] Forming Machine Feeder: Heraclio Miller MD Calcium [Mass/Vol] 9.0 mg/dL Normal 8.6-10.4 [facility] Comment on above: Order Comment: FASTI NG:YES FASTING: YES Performed By: #### 1 0165 #### [facility] [place] [address] Hat Forming Machine Feeder: Heraclio Miller MD Chloride [Moles/Vol] 106 mmol/L Normal 98-110 [facility] Comment on above: Order Comment: FASTI NG:YES FASTING: YES Performed By: #### 1 0165 #### [facility] [address], [address] [place] [address] Hat Forming Machine Feeder: Heraclio Miller MD CO2 [Moles/Vol] 27 mmol/L Normal 20-32 [facility] Comment on above: Order Comment: FASTI NG:YES FASTING: YES Performed By: #### 1 0165 #### [facility] [address], [address] [place] [address] Hat Forming Machine Feeder: Heraclio Miller MD Creatinine [Mass/Vol] 0.73 mg/dL Normal 0.50-1.05 [facility] Comment on above: Order Comment: FASTI NG:YES FASTING: YES Result Comment: For patients >49 years of age, the reference limit for Creatinine is approximately 13% higher for people identified as -Peruvian. Performed By: #### 1 0165 #### [facility] [place] [address] Hat Forming Machine Feeder: Heraclio Miller MD eGFR NON-AFR. PRYDEINIG 96 mL/min/1.73m2 Normal > OR = 60 [facility] Comment on above: Order Comment: FASTI NG:YES FASTING: YES Performed By: #### 1 0165 #### [facility] [place] [address] Hat Forming Machine Feeder: Heraclio Miller MD GFR/1.73 sq M.predicted among blacks MDRD (S/P/Bld) [Vol rate/Area] 111 mL/min/{1.73_m2} Normal > OR = 60 [facility] Comment on above: Order Comment: FASTI NG:YES FASTING: YES Performed By: #### 1 0165 #### [facility] [place] [address] Hat Forming Machine Feeder: Heraclio Miller MD Glucose [Mass/Vol] 85 mg/dL Normal 65-99 [facility] Comment on above: Order Comment: FASTI NG:YES FASTING: YES Result Comment: Fasting reference interval Performed By: #### 1 0165 #### [facility] [place] [address] Hat Forming Machine Feeder: Heraclio Miller MD Potassium [Moles/Vol] 3.7 mmol/L Normal 3.5-5.3 [facility] Comment on above: Order Comment: FASTI NG:YES FASTING: YES Performed By: #### 1 0165 #### [facility] [place] [address] Hat Forming Machine Feeder: Heraclio Miller MD Sodium [Moles/Vol] 140 mmol/L Normal 135-146 [facility] Comment on above: Order Comment: FASTI NG:YES FASTING: YES Performed By: #### 1 0165 #### [facility] [address], [address] [place] [address] Hat Forming Machine Feeder: Heraclio Miller MD Urea nitrogen [Mass/Vol] 12 mg/dL Normal 7-25 [facility] Comment on above: Order Comment: FASTI NG:YES FASTING: YES Performed By: #### 1 0165 #### [facility] [address], [address] [place] [address] Hat Forming Machine Feeder: Heraclio Miller MD Coding Summaryon 01-28-2021 Coding Summary HTMLBase 64 BvrhwcpgQAf0nMy+PGhlYWQ +NR2NAIHqK45fsENccS1JL4 gISY9FKKZUQSNAGY1LMO5uu KS0BRzjX9TyqnCq OyyclAUhBB52OBv6IME6yZo kHJlqhM0opWKfV3d9TeDbGA 36jW14QGmnODWpCbJ9UjGna jsgbWFy Y8wxLhMpxCWrHpf+PHRhYmx lIHdpZHRoPScxMDAlJyBzdH ckLW4dIy2rLGOyMRSbdMnqv HNlOiBj v5saLUBtWZxdEE8uqCewL1D nnHP1CSJpn4a0Rj71zQF+PH HwTRE1oRipAXmmd000PbLww 1xmOYP3 rXDwFCdbTQH4Q20qd8T7GXH rZJQgJMH4oKB8fI1zrTpneh ezO6MvxQJfRpS5GAR4kBIel S1nsLhz rmrunK6kEze+P92XKY3DQVK AOP5JIoe3Z8EwEgsssSF+PC 05LWSyJG28mYDstDYol3xfg Mn2UaRh BZNlRAY3fAtiETayw6AiFOV uT63zyEWjc9M7HPEnxUvzbC RwSeCgsLK9iN7gDEpkrzafn 2hvdzsn Ukivw7ewlv86tW24L35wHXe mPSGpMRO1RTBiAARmiAefvo 6abJ9oEb4+GIuud5fvs9hib Zp4JzGm MFMmmzHuxBuzZDQ8b5KiTp4 9A2QyrEayq6HtBpl9as92kY Rlb9M2iPH2XOkjFJQiuC6iN WxlZnQ6 BZYoUhXrqS39xEQuTOpbXb3 ulTjtzXecJO2kEXFqxprzHW DbtI6oHJQnvIAibJglOE3zW TBpbjtm c125TsKzGIV0AYXfcCKlU2V mrI7gHuKzRQDjPPOfL2TlxN MzQQolP474OJjjGbM0CCBsm rLsS2Up XETaiJfoIrE7r1Y4If2Rj5F ozvazBAL6LUtpSQMjRsV2Ey MnWtY2I1YcRgj6CZZcuGlcS G0cH9Es HAEerhxtqniimCZ7OQHhDVP xcD24jMTrHQcxPs2ex2C7p8 16HZXlAXOwzH81Bu3lkTfrD TBwdCBU vP9scxelg4dobduvWkEtEXB jDJo4AXf9UPCtjYtqTzHeAT S2TfL6PZZ5nIBkyR4qjEroz fcoeM8h Oyc+Z49qqD2nYXP5YAO6tet yMEFmugHtBX54KZ50G4JoBy wvdGFibGU+PGRpdiBzdHlsZ F0oAtPp t9buj2KwHYexH8EoPDLdYLy pSvy0YNEkWPY1rAA9gZ6uIW BfINssc0X7xRO6H9ZsyuZxs q4to0ye KKToEWsbT86isFBsq0I8QPX uiCZ1AHHeaCckNrKmbK83Hi c+TYPblKrpl4KdZurnk3zut 6jmxUr8 DuMwUJLmlzUkjFcxDVE6j8H oOh32P41mVAecYLViGSFdXB DdVOPhkSgrpr6jgC4cXd2+P GNvbCB3 xJY7yJ5dAOUgLhV5KPqqR23 3WiVxiOGvZgbrv2fpz9hpmD i9BpLbTGHefiYxdIsyFHE3h 7KwAd96 C56lTRqzBSYvUORrUBUdNNS gaRswbh7noB2wLa2+PC9jb2 njsq13zK97wRN+HTBnWXS5o WxlPSdw RWIxxK6zQLgdVyQ7ILWwGxD azF72eREzIVufAg1ynDftoQ nrHS8pKHTrgvljr215EbCee 2xkIDEw qOGyTIrrXVW7R03xw8W4KQB oASXvLSM9gZD2pU7zeJywxm ogbGVmdDsgdmVydGljYWwtY DvcD893 IHRvcDsnPlBhdGllbnQgTmF hCXs3V9CeUkx3BKJauFgtLV 4fsRBkGNftDc7vuWkvnIadT W9sKXDd vpgag155PqGyu2fnBHIrbSR cVBntQYF6E50po4L0WQSuWS GjXTC3eJO4oO3aaPahesbhn GVmdDsg pcFraBymVIicFZopF531JIS qiQbiEcLyieWaDKEilXP1IW 54OA67qRBet3R5bBT8G4JxJ GRpbmct ksfgyVS5OIMaYPTppW75Ml1 doUalPu6uDBRgQLT3GUKxkZ NfQ7BqyU1gNlPeMICkTEOkU 3RleHQt OHwjG312KHctGmX4BPDweaB pC9GiMLFtjDsxRuE3z1N5Pw 5JB4S6QZ49FP02xYAln9P0i PX8O6Ex MQQcqkeszjlcsYJ7TKNrUNQ amW27Wv8gvFuqQi3wTJAiAJ M3ATXydFTfL7MyjU4jQiIoO DAwMDAw H8MgpBLwBRfpT584CJekKwL 1URPeiuBvO9IzWEWuxMafVa M8x4M0Xz3NUYn1FF16WA13g HUfs1D5 sBJ4X6GsZOMuoaszevcczXO 7BJUgWAQadE50Cx5bnSqnDa 0pEZOcXKD8UOSefCCfD9Prp O5oVhVf CGCbZSApQ2GjdRCxKWqgM24 9HEfmBxM3ECAegdPzB9InOV VspDjdYiM1a5T1Kz5TNZRwT M20POS1 eBF9LR92HP83T9EsSnwvbTD ibGU+PHRhYmxlIHdpZHRoPS rmFKTzXpSsbCzqXQ1bQm2rX GVyLWNv nEhnwYSjYmAqf3wpDXWhOTp eUJ6vhRvqO0YobMN0QKMan2 b8Uo98X62pR1AftNZ+PGNvb ZV4lWU3 zK2yJeMfUtT0OQfdQ041NaA mrUYeIsrdl6cmi0bjuKf1Wu C8OPCloaPmaVzfEYG6s0CwV l07T62b IHdpZHRoPSIxNSUiIHZhbGl kdf7afT3yKk8+BKNzvTD7iL V1jU8yEnSoKiZ5HFykE958Z nRvcCIv Alcfx2zgg0rbqLy5QbVhQST wlcEtdIsyVRV1m7YxFb88S6 BclNdej5VaWag6os14fQQko 9F2gHX8 R9LeWIMtvvpxlREgyIulBR8 gZCHioiowHKMhxC5vJQMuE4 w3MrYnEcA5PYiqJ2CwnjL6Y DEwcHQg KEuhBDP7Z47rd9S5ICMhVUV xTJL6cAA0nG0mbMijhlzvmP VmdDsgdmVydGljYWwtYWxpZ 246IHRv mYxoYPYsiB4nXCAmsCKnsMc rBG5aXNMgrujwVdaNPU7RRp wgRUxJWkFCRVRIIEFOTjwvd GQ+PHRk ZMT3mEtlTXoeJXJyuZ6nLJP pZ9e9QcHnTbU0XLbtP9OkDV TxrqycBd11gG5hYlNvGrO0I DbrO6Mh foW4TOBkuWAuWBjiIFR4H85 qi0Y5QIHlOZQwFBH3jBX1fA 1hbGlnbjogbGVmdDsgdmVyd GljYWwt JPbdL330JWJdoOazRjY2UwE iPqE2NwH7W6OeFch1BWRnqO ueVE7itSEeTFobBu2scXbbp JstSC8o GEFvazskNLEddZ6fZLSrpXX rlAqlIF7zLFNesbpif808Wv SoDPM6ATAmzTQzF1LlvH8cF iAjMDAw LDEmF9ZviLKwWNqfP380ZLk xMqP0TDQgiyKbN9FeCNYuhU xaYqW8s7H2Ky55UNEILABwu zwvdGQ+ RULeZUB9bLmtXEypVKOfhD6 nLKAnQ5g9IaEsDjY8QBnnT1 XoLLRlbdqtCx46cB2sOjOvU lT6GZdm E2CizlR4FMYcjOLhAHnyWDN 2O38jy0D5VFWoXYOpWIJ2sI Q8eI8dxXpzftsfqQLbrAdlc mVydGlj ZXghFVcoL057ZCJdhRggKwN FTUFMRTwvdGQ+XTOlJXB5tB ouJVieZNOpcR8hEXXvV2n8E iAwLjA1 EVubK4LcECPvfuecPt84eV3 jWwGgCjK3EXnrW2KqzxN5RK BmpUOlUFdrUIH1E32pc0N4U CMwMDAw EZV3pBU2vG9tvIanbutzbMF mdDsgdmVydGljYWwtYWxpZ2 46IHRvcDsnPkRheSBTdXJnZ OW8SW41 PO48Y7CmGlvceYMzrSU+PHR hYmxlIHdpZHRoPScxMDAlJy KxuXioUE7gUc7aGJOqQRAvs GxhcHNl GhQtl6dyWOGjBTpcZP9xsTp gL9GcjRO6LNSxg9k2Dp38C2 1qQ3NgiVL+TLArpQY9fGG8h G1pCmAa AuX9ACctQ302GfYmbYRsPrx es3btz3wusNq3XiUeDFAvzo AicPkjVWT2b4SaIc72N08eL HdpZHRo PBNdFSMzTBTqaGulww2chX4 wIi8+TIOaqIQ7wVS4eW7uCv FgNdR8LRsjU290VnIedQMyW mweV83k H5KinRF+OKIwXdo1NNHhdZv xBX6lsMLuBKukGe7jSUS0Mx AiYlVlVPsyU0EoDMRxxiscg mlnaHQ6 KVFtWSMqkB52Nl3hgFrzAg1 vBJBhHJS4ZSTtgJBbZ9CzuY 7wKmGqPGMsSNMbT9CsnQHkH EdgM448 XLvjDhK7BCAptyQdS4MxPRX jsOqxBwR5b0Q8Ct0LrHwztW IjFC0bFcEvNXx3X8XsPaw0D CBzdHls WY1gwAEmWSwgAf9xuGwfzNm zWE6kMDFfegbyr281CoBxl7 vrDLJkrEIfXDgvZWC0B30xv 5R2TGFd TWQvGMA5qBN3oE6zpQqaoif gbGVmdDsgdmVydGljYWwtYW izN915WXZjvHclSnWXYwd1N 4EcZje7 RNWtkJyyAD9ggQFxFOrwFt8 arQgaxHbfJC2nDLFdyjxwp1 86ZzFsl1buFRPewVTsRMytS JW4Q39i a4K4XQJhQMEhUYK6bRE9eR2 hbGlnbjogbGVmdDsgdmVydG awDBsyJTtwP631VMDfzAldK p1YCtw2 B3PmAue0SKSpjBvbUQ5tkXT iGTyoNn6znKyccThoBN0eJA Krzlqma191RuOff0miJGVwu HQgVGlt SZR1N87rz2G8VTPtWRSwQOQ 0iZT4tW4vhKdergqbrUOamV lbhaPinEauPFilNPjfU136B HRvcDsn PlBheWVyOjwvdGQ+PV02kg4 2W1RtSgdyAkf5DXOtTSK0eJ A7hF9hKNNrQGxxz3P1mAK1P 2JvcmRl ci1 (more content not included)... [facility] Consent Formson 01-23-2021 Consent Forms [id number]#1.00O TGTIFF [facility] MAGR PACU Recordon MAGR PACU Record MAGR PACU Record Summary Primary Physician: Hua Oglesby DO Finalized Date/Time: 01/23/21 13:00:07 Pt. Name: YASMIN JONES MIGUEL RosenO.B./Sex: 1970 FEMALE Med Rec #: [id number] Physician: Hua Oglesby DO Financial #: [id number] Pt. Type: D Room/Bed: / Admit/Disch: 01/21/21 06:05:01 - 01/21/21 10:08:00 Institution: PACU Case Times MAGR Entry 1 In PACU I 01/21/21 08:20:00 Discharge from PACU 01/21/21 09:04:00 I Last Modified By: Lisa Connell RN 01/23/21 13:00:04 Finalized By: Lisa Connell RN Document Signatures Signed By: Lisa Connell RN 01/23/21 13:00 [facility] Consent Formson 01-22-2021 Consent Forms [id number]#1.00O [facility] Discharge Instructionson Discharge Instructions [id number]#1.00O [facility] Telemetry Stripson Telemetry Strips [id number]#1.00O [facility] Anesthesia Noteon 01-21-2021 Anesthesia Note Patient: [...] on: 01/21/2021 08:25 EST] Gen Jean MD [facility] Anesthesia Note Patient: YASMIN JONES Age: 50 years Sex: FEMALE : 1970 Associated Diagnoses: None Author: Gen Jean MD Preoperative Information Anesthesia history: Patient history: Nausea and vomiting with anesthesia, No difficult intubation, No malignant hyperthermia. Family history: No malignant hyperthermia. Review of Systems Respiratory: No shortness of breath, No apnea. Cardiovascular: No known DE, No chest pain. Gastrointestinal: No heartburn. Health [...] All Problems HTN (hypertension) / SNOMED CT 8265221806 / Confirmed Histories Family History: No family history items have been selected or recorded. Procedure history: Abdominal hysterectomy (114670745). Arthroscopy of knee (897873898). Lipoma ([id number]). Comments: 01/04/2021 11:19 OSKAR Becker RN, Milana [...] Results ECG interpretation: Within normal limits. Plan [place] [employer] Anesthesiologists#(ASA) physical status classification: Class II. Anesthetic Preoperative Plan Anesthesia: General. . Anesthetic plan, risks, benefits, and alternatives discussed with the patient and/or family. Patient verbalized understanding. Family/Guardian present. Informed consent was given. Consent was signed by the patient. [Electronically Signed on: 01/21/2021 07:10 EST] Gen Jean MD [Verified on: 01/21/2021 07:10 EST] Gen Jean MD Normal [facility] Inpatient Patient Summaryon 01-21-2021 Inpatient [place] [address] Patient Discharge Instructions Name: YASMIN JONES : 1970 Patient Address: [address] [place] [address] Primary Care Provider: Name: RANDY CALLE After you are discharged if you find you have any questions, please, call [phone] ext [phone] to speak to a nurse. Discharge Diagnosis: [...] alcohol and/or drug addiction problems; contact the [facility] 22/09 Crisis Hotline -Text 4HIEI jg 606421. If you received any narcotics, sedation, or [...] business decisions or sign any legal documents [facility] would like to thank you for allowing us to assist you with your healthcare needs. The following includes patient education materials and information regarding your injury/illness. YASMIN JONES has been given the following list of follow-up instructions, prescriptions, and patient education materials: Follow-up Instructions With: Address: When: [address], [address] [place] [address] Business (1) 01/30/2021 11:00 AM With: Address: When: [place] [address] Business (1) Medications During the course of [...] or concerns, please call the office at [phone] Viruses or Bacteria What?s got you sick? [...] (except strep) (more content not included)... [facility] Intraoperative Record MAGR Intra-Op Record Summary Primary Physician: Hua Oglesby DO Finalized Date/Time: 01/21/21 11:10:34 Pt. Name: YASMIN JONES/Sex: 1970 FEMALE Med Rec #: [id number] Physician: Hua Oglesby DO Financial #: [id number] Pt. Type: D Room/Bed: / Admit/Disch: 01/21/21 06:05:01 - 01/21/21 10:08:00 Institution: Case Times [facility] Entry 1 Patient In Room Time 01/21/21 [...] Role Performed Surgeon - Primary Anesthesiologist of [employer]el [employer] Crane Operator Record Time In 01/21/21 07:22:00 01/21/21 07:22:00 01/21/21 07:22:00 Time Out 01/21/21 08:17:00 01/21/21 08:17:00 01/21/21 08:17:00 Procedure Arthroscopy Knee(Right) Arthroscopy Knee(Right) Arthroscopy Knee(Right) Last Modified By: Dorothy Archer RN, Barbara RN Long, Barbara RN 01/21/21 08:21:11 01/21/21 08:21:11 01/21/21 08:21:11 Entry 4 Entry 5 Case Attendee Nemo Mendez CST, Regina CST Role Performed Scrub Personnel Vamp Liner Time In 01/21/21 07:22:00 01/21/21 07:22:00 Time [...] 07:55:36 Post-Care T (more content not included)... [facility]-21-[facility] MAGR Postoperative Record MAGR Phase II Record Summary Primary Physician: Hua Oglesby DO Finalized Date/Time: 01/21/21 10:17:55 Pt. Name: YASMIN JONES/Sex: 1970 FEMALE Med Rec #: [id number] Physician: Hua Oglesby DO Financial #: [id number] Pt. Type: D Room/Bed: / Admit/Disch: 01/21/21 [...] Signed By: Marianna Gerber RN 01/21/21 10:17 [facility] 1 03-23-2020 MAGR Preoperative Record MAGR Pre-Op Record Summary Primary Physician: Hua Oglesby DO Finalized Date/Time: 01/21/21 08:40:07 Pt. Name: YASMIN JONES/Sex: 1970 FEMALE Med Rec #: [id number] Physician: Hua Oglesby DO Financial #: [id number] Pt. Type: D Room/Bed: / Admit/Disch: 01/21/21 [...] By: Carolina Painter RN 01/21/21 08:40 Normal [facility] Operative Report - Surgeon/P aster [...] on: 01/21/2021 10:16 EST] Hua Oglesby DO [facility] Patient Handouton 01-21-2021 Patient Handout [...] or concerns, please call the office at [phone] Normal [facility] METABOLIC PANE [facility] ([place], [place]) 01-12-2021 Albumin [Mass/Vol] 4.3 g/dL Normal 3.6-5.1 [facility] Comment on above: Performed By: #### 7 600, [id number] #### [facility] of [address], [address] [place] [address] Hat Forming Machine Feeder: Heraclio Miller MD Albumin/Globulin [Mass ratio] 1.8 {ratio} Normal 1.0-2.5 [facility] Comment on above: Performed By: #### 7 600, [id number] #### [facility] of [address], [address] [place] [address] Hat Forming Machine Feeder: Heraclio Miller MD ALP [Catalytic activity/Vol] 60 U/L Normal 37-153 [facility] Comment on above: Performed By: #### 7 600, [id number] #### [facility] of [address], [address] [place] [address] Hat Forming Machine Feeder: Heraclio Miller MD ALT [Catalytic activity/Vol] 17 U/L Normal 6-29 [facility] Comment on above: Performed By: #### 7 600, [id number] #### [facility] of [address], [address] [place] [address] Hat Forming Machine Feeder: Heraclio Miller MD AST [Catalytic activity/Vol] 18 U/L Normal 10-35 [facility] Comment on above: Performed By: #### 7 600, [id number] #### [facility] of [address], [address] [place] [address] Hat Forming Machine Feeder: Heraclio Miller MD Bilirubin [Mass/Vol] 1.1 mg/dL Normal 0.2-1.2 [facility] Comment on above: Performed By: #### 7 600, [id number] #### [facility] [address], [address] [place] [address] Hat Forming Machine Feeder: Heraclio Miller MD BUN/CREATININE RATIO NOT APPLICABLE Normal 6-22 [facility] Comment on above: Performed By: #### 7 600, [id number] #### [facility] [place] [address] Hat Forming Machine Feeder: Heraclio Miller MD Calcium [Mass/Vol] 9.3 mg/dL Normal 8.6-10.4 [facility] Comment on above: Performed By: #### 7 600, 61229 #### [facility] [place] [address] Hat Forming Machine Feeder: Heraclio Miller MD Chloride [Moles/Vol] 105 mmol/L Normal 98-110 [facility] Comment on above: Performed By: #### 7 600, [id number] #### [facility] [place] [address] Hat Forming Machine Feeder: Heraclio Miller MD CO2 [Moles/Vol] 28 mmol/L Normal 20-32 [facility] Comment on above: Performed By: #### 7 600, 91641 #### [facility] [place] [address] Hat Forming Machine Feeder: Heraclio Miller MD Creatinine [Mass/Vol] 0.86 mg/dL Normal 0.50-1.05 [facility] Comment on above: Result Comment: For patients >49 years of age, the reference limit for Creatinine is approximately 13% higher for people identified as -Peruvian. Performed By: #### 7 600, [id number] #### [facility] [place] [address] [employer] Machine Feeder: Heraclio Miller MD eGFR NON-AFR. PRYDEINIG 79 mL/min/1.73m2 Normal > OR = 60 [facility] Comment on above: Performed By: #### 7 600, [id number] #### [facility] [place] [address] [employer] Machine Feeder: Heraclio Miller MD GFR/1.73 sq M.predicted among blacks MDRD (S/P/Bld) [Vol rate/Area] 91 mL/min/{1.73_m2} Normal > OR = 60 [facility] Comment on above: Performed By: #### 7 600, [id number] #### [facility] [place] [address] [employer] Machine Feeder: Heraclio Miller MD Globulin (S) [Mass/Vol] 2.4 g/dL Normal 1.9-3.7 [facility] Comment on above: Performed By: #### 7 600, [id number] #### [facility] [place] [address] [employer] Machine Feeder: Heraclio Miller MD Glucose [Mass/Vol] 86 mg/dL Normal 65-139 [facility] Comment on above: Result Comment: Non-fasting reference interval Performed By: #### 7 600, [id number] #### [facility] [place] [address] [employer] Machine Feeder: Heraclio Miller MD Potassium [Moles/Vol] 3.9 mmol/L Normal 3.5-5.3 [facility] Comment on above: Performed By: #### 7 600, [id number] #### [facility] [place] [address] [employer] Machine Feeder: Heraclio Miller MD Protein [Mass/Vol] 6.7 g/dL Normal 6.1-8.1 [facility] Comment on above: Performed By: #### 7 600, [id number] #### [facility] [place] [address] [employer] Machine Feeder: Heraclio Miller MD Sodium [Moles/Vol] 140 mmol/L Normal 135-146 [facility] Comment on above: Performed By: #### 7 600, [id number] #### [facility] [place] [address] [employer] Machine Feeder: Heraclio Miller MD Urea nitrogen [Mass/Vol] 15 mg/dL Normal 7-25 [facility] Comment on above: Performed By: #### 7 600, [id number] #### [facility] [address] [place] [address] [employer] Machine Feeder: Heraclio Miller MD LIPID PANEL, [facility] [place] 12-31 Cholesterol [Mass/Vol] 173 mg/dL Normal <200 [facility] Comment on above: Order Comment: FASTI NG:NO FASTING: NO Performed By: #### 7 600, [id number] #### [facility] [address], [address] [place] [address] [employer] Machine Feeder: Heraclio Miller MD Cholesterol in HDL [Mass/Vol] 69 mg/dL Normal > OR = 50 [facility] Comment on above: Order Comment: FASTI NG:NO FASTING: NO Performed By: #### 7 600, [id number] #### [facility] [address], [address] [place] [address] [employer] Machine Feeder: Heraclio Miller MD Cholesterol in LDL [Mass/Vol] 89 mg/dL Normal [facility] Comment on above: Order Comment: FASTI NG:NO FASTING: NO Result Comment: Refe rence range: <100 Desirable range <100 mg/dL for primary prevention; <70 mg/dL for patients with CHD or diabetic patients with > or = 2 CHD risk factors. LDL-C is now calculated using the Campos-Joseph calculation, which is a validated novel method providing better accuracy than the Friedewald equation in the estimation of LDL-C. Campos CAMARENA et al. MARQUISE. 2013;310(19): 9318-7570 (http://[email or web address]/faq/CVF205) Performed By: #### 7 600, [id number] #### [facility] [address], [address] [place] [address] [employer] Machine Feeder: Heraclio Miller MD Cholesterol.total/C holesterol in HDL [Mass ratio] 2.5 {ratio} Normal <5.0 [facility] Comment on above: Order Comment: FASTI NG:NO FASTING: NO Performed By: #### 7 600, [id number] #### [facility] [address], [address] [place] [address] [employer] Machine Feeder: Heraclio Miller MD NON HDL CHOLESTEROL 104 mg/dL (calc) Normal <130 [facility] Comment on above: Order Comment: FASTI NG:NO FASTING: NO Result Comment: For patients with diabetes plus 1 major ASCVD risk factor, treating to a non-HDL-C goal of <100 mg/dL (LDL-C of <70 mg/dL) is considered a therapeutic option. Performed By: #### 7 600, [id number] #### [facility] [address], [address] [place] [address] [employer] Feeder: Heraclio Miller MD Triglyceride [Mass/Vol] 68 mg/dL Normal <150 [facility] Comment on above: Order Comment: FASTI NG:NO FASTING: NO Performed By: #### 7 600, [id number] #### [facility] [address], [address] [place] [address] [employer]ing Machine Feeder: Heraclio Miller MD Coding Summaryon 01-09-2021 Coding Summary HTMLBase 64 WqxhuwjaTPj9sAm+PGhlYWQ +CL7NIMIhV27hhOOrfK9ZO7 hIGO3IQQPYTXZBLT8DHF8vs SP7RTstK8PmurPb WtxptBGmZH17WEp1NJT4jOh hEJrsdT2bpVXmK5z1WvCdXJ 87nU72IVmaCDBbSeQ4PuCde jsgbWFy J8hfFxMrbVPvCnl+PHRhYmx lIHdpZHRoPScxMDAlJyBzdH atGZ5aGc8zUNUkDTNsyYpni HNlOiBj c7oxGXMfFKbdYJ1yyDpqX8R rzSZ6SUErw4m8Nz28mEH+PH YvOZO2qOtjIRqnv365YzSsz 3oeCFT9 zQYlEDgqGRV9R84nk6Z2EOE bFFRnFGI2vOJ1zT0soGcdle pjT4EoxWQlOtQ7ZCK2wYGzo Y6dpTzt stqfnH1mItx+N73OVN4SBIZ UIY7LHvs1E7TpPpgvzGM+PC 83AZPiNC79eSReiCInc6zfz Qm5DwQg TMPxYXV1eXxjUWwza8NlFYK mW66xeDTct9U9URZeyZsilT NyMdCnaRJ4fN2xGKxgepkvo 2hvdzsn Kklwx7sbpk09cP10K58rHCf zOSLoMAC7EFDoEAEhnJjxdo 3nlN6xMs8+KWstl1iub5hnz Zj4YvYg SRApplNwkCclYPZ3j6ObSq8 0W1WxoUewd3KwXre7tv05bG Eok7H9uLA0VThgEEGqzU4xP WxlZnQ6 APOrCjBknO27bLYhBXipIk1 xoKfqyXnvBU5zPFJwwobxDY XmdD3tWCBhzCNbzRxuIZ4fE TBpbjtm r790KdLdPTV8SKEmiTVsQ0Z etF0tSbNlHPVsAYBnS4RkcG CbRFyjK356XDpyIjB4DTGyf yFlE5Fg RZEakTyoTrS3x2J8Zt1Km5R zzwxbULB4SFzzBYUkFmXxLs WmSgU5Y7VtVmz3CFLstYesV V3nG9Fn ITJpjnogzfemxJM6XZWpMKK gqG71dJHzFYlhBq1it4T8w4 53PEWuNGKjtI82Jm4dnYgzE TBwdCBU xN5rokkyf8qnovjbDsNmUTS rQIy1ECn7JGDtnHelVyJxEF D7UtQ6WEY2gPHpuP4bdWfgi kdgvC1v Oyc+U57itK1rMNQ5USD4ysx kYWKvvaOiFA45KD85F4IdWo wvdGFibGU+PGRpdiBzdHlsZ O6oXtOb h6yol2IjJEerD5OkRJYbHFj hFat7OZGdMZL0mPC6bO9cVU CcURfvs5K0uJF0Q6ZrqeHsr k8zo1dn LMSrIMjoV66aqCTqz2Y3DAZ mrYO0DLXccYpwGbAmiN85Ck c+CHAjvTrvl5UfVyceh3qtz 9pniGb0 KyBxCWRugqGllUumJOR8h7R oMr11D52vCHttLJWkGLPaXR AdGKGwaBkmiy5pqY5oNr6+P GNvbCB3 aXH4vM6lYDKyTiN8JLojW31 3JmGpbTHvIztma9aab4ddkK r6RgQpUCYjgbXraMukKQT1e 7NfNa21 D07xXUpjCUUhSWFmSDTnEVA kvHagsl6ziR9uNp7+PC9jb2 yeuc16iU87hPH+KJKhXXO8l WxlPSdw QDZzmQ9cYJooTvD0REMuQhB phF92rYWxQQliWj0jcZscsH mnZT9wDYDhpcgvt488OzXbz 2xkIDEw yZFfNBgrWOT2T47og3P3XIG yZQUdFXX0gVB8gY0fxGzuvm ogbGVmdDsgdmVydGljYWwtY PqoT972 IHRvcDsnPlBhdGllbnQgTmF aRLj2H8XdGzi2KFNtnPyyMT 6epMZlFZnpZz8gvHzstReoT N3eKQPn rmxtl284OuBiv9zqTEVskBF tJBttXVK2P59ga0Q5MBQeCZ AvPLA0uOS5qD8chBbbejgsw GVmdDsg lyCgoEksDRrmTFbpM346WXU ifSdfIlTwluQkQRYelWV8ET 99FJ08vAFws7I3rNL1D6ItA GRpbmct xbwhjZS6GMWdANNuoT48Rx6 xuJumPt0wKCQlISS2FLNifV CyH7EgeV2wKfSwMBQeKFXqK 3RleHQt XFlgP688JLxvImD7XCWomcQ gD0FvLLXweWkuUaU5j1Y8Eh 2ES1J1RX13VX50wEQml3C4j IW4W0Kp XCNtdmwuutbhcWR0PQYjUFW vxN73Jf8akTluVz2kXTXhVC X8TPMxxAXfH6XxeG5rTrBpA DAwMDAw J8SgqIUxPQirS835PNsyNiI 2IEMwadUgF1MfKMQttXzdDz X6d3X7Nm2ZIEs4PG94KF19f BUcd7M5 vBE2K3UgYJHmpbrggbezdWB 7XWDhJBTziC13Ax5lzPryJq 4vZOOeFHR1EIWrpUGbO1Qve N6qNtAl QJGlLYYnR6UtuPJnMRjeD70 3VSknOqF1LWUwrwDlS6QbOB OxqFwyRzJ4h7I8Kw4HLFOrB P34RGD3 fBE8DK79OF27I5QaKuukeCL ibGU+PHRhYmxlIHdpZHRoPS dmTIYhTrSxaNtdMX8kPc5sE GVyLWNv cFguuQBzMdKet6pyMOCgTLc qNU1cnLluY9JooXR1IRRte7 v0Kp05O71uL4WubCN+PGNvb KU1sYG7 mG7dStFuEiC1YNbuM016IvZ fjZJvOtfku1sfg1jfqSr3Qu A0HYCpguMmmDtzMWS6d2RrR l73S46s IHdpZHRoPSIxNSUiIHZhbGl szb8hvZ7hPj4+QMSfhYA9jJ W6iW1jLvNcYvG7BXthY383Y nRvcCIv Naabu5aaa9allYp3ZcQwGOC sroJnpUeeBYI0e9KoPj68H9 LsbCagx9QxYya2zk71vJTpq 8Q9tJF3 J1IrTEOtrluniBNyyAskUK7 zWTOwrpjjCYPhxA0zMSOpE4 j1TqNbHdA0IGsnM2UtihY1N DEwcHQg MJdqEZW6N81ee9S3YYRlYRI xQNQ3yFX9yP6wvRvwcvjawL VmdDsgdmVydGljYWwtYWxpZ 246IHRv aBifUNCgnD5sNRUxkQSrmLl cCV8rXNJaoiwbGccHHR0ITs wgRUxJWkFCRVRIIEFOTjwvd GQ+PHRk VTB9hFzrYWtuRKYptL2cOHJ tV5q5TrNeIlB6HFpoU6ByOT NzwamfGx67fI4dGrYnFeE2M GpcM4Gi uoI7ELHezUBgZDntTTC9F64 jt9I4QHGpONGxGNV2bRD0yJ 1hbGlnbjogbGVmdDsgdmVyd GljYWwt YCvbJ902VCUfaZssJiC2GmU fXgL7FmW6D2QnSwv3GYDxbY hrYN8fiDMvXRnoBy6moKnmu YjxYE3u WXQffqvaCNFosH1bJFIjcBF rsTbeDF7tJXZitofpj153Ge NvOET4ZPSvkIVtM3UmsD7sG iAjMDAw JFKgQ1RutBXoJGmvX742COp hTpZ7QJNcipHeP2LoHFRrdP naKtI5p4I4Nq74QIRSNVWor zwvdGQ+ BVMaYSA7xMvaJYxdMGYlzH8 cKICuF6f1CmBgVtU7TFwuB7 NxVNBcfgehXj38tB4oYiIbT nM6VIdn F5DqnyT8TZKyxAYsKZikCWY 6U51jx7Y9INOwENGrEZZ0aO T4wB7keWwgdlagbGFjqCuxk mVydGlj GRqqMSnmJ543CGItbByhOuJ FTUFMRTwvdGQ+YMRtVXT1iA bfOHbpMSEsjD7nTCUaP6s7F iAwLjA1 QFogT6EpUKRngfvcTt17mA8 eDdOsQrZ8ROuxG2CdngD6LK NhkHSiFZxxGWR9G69ax5M1C CMwMDAw IZC3nID8nP4esBlbshmdePZ mdDsgdmVydGljYWwtYWxpZ2 34XBEwoFzkRe6CYO77RJ41A 3RyPjwv dGFibGU+PHRhYmxlIHdpZHR fAAunEAEdNjUgdOpnVR8uVa 9yZGVyLWNvbGxhcHNlOiBjb 2xsYXBz YEvyCO2riXuhR2PblBW4ZRE cl3f0Bw65O04xK1OsxHC+PG TbcKK9fXZ6pX5jIsPzXnN1G CkdW793 SsEmlGMpOfbyw1hie1isoJu 5MhLbEKNdxdQbhSqwFEM8x2 BfCz44N24cLUexSDGnWLFjW CUiIHZh eQhgsa7qgX9hYc2+PGNvbCB 5wZP9qZ2wUsKeLiE6OCkpN8 60QfEkwKLdZnmnR78dG4Gbi XA+PHRy Say3BUVnuYxyHS2gyUXvZPk aYt9yIGU9UjWyHhPaYHiaM1 RpTRPmukelauhkaLW1JBKxI DUwaW47 Mf1tkKhcMq4gBVJaFYP0GNB fuREjC7SsjP3oMhZuEKJePP LvV6RshEYgESavV757BZsuZ uK5JWDn azXbK6LcWWFdjJhbInE1r8T 0Oa8FdPebqRTiVJ5eLuAbZL f1T4KaRmv7GKSpvMjjLE0cj GFkZGlu Qh1kmJbnpEdaVG0dVMGjtbv iv498RpSiw1niWFAwdAIoNI ziODM0J32ul2U9VGAyPUGeZ EU9sMW6 qY4euMpvbrproMOsxImpmhK ywRmeWTweKFibF150CBUheI adTbBPVqe4T4DaCdo6YAEdf IgfFX4x dCWjOEdyRu4aeQrowOcvIL9 yQBRyqinnq970CbPzo8mhKM CnsYUmIMpsICD1B65lp9X5H CMwMDAw GQE9lLQ8dZ0imUqstfuyfJW mdDsgdmVydGljYWwtYWxpZ2 81GAGgqCpmYu2MUqg9P4PdQ uj5AXBk lSpbTK6qrTZbNCyfRu5asAc bzMhvDB1wLOIjicncu329Cs Jwc8pwHBRpgJThMLhvKLU0O 49ok5C3 KYFiEMEsYEF0lEL0kF5rnLl nbjogbGVmdDsgdmVydGljYW vhODtvK501RKTidDtmBcMmm WVyOjwv dGQ+WF31dt84Y0AsRuelRmn 2BBDlWZG7gNU1pD5rOVIcRH ztx2N7dWQ8E7UvmmVpsl5po 2xsYXBz ZTo (more content not included)... [facility] Consent Formson 01-08-2021 Consent Forms [id number] TGTIFF [facility] Progress Note - Nurseon Progress Note - Nurse PAT review for 01-21-2021 surgery reviewed per anesthesiologist, Dr. Gutierrez- no additional orders received. [Electronically Signed on: 01/07/2021 14:24 EST] Elvira Navarro RN [Verified on: 01/07/2021 14:24 EST] Elvira Navarro RN [facility] .Auto Diff 1on 01-04-2021 Auto King % 8 % Normal 1-12 [facility] Comment on above: Performed By: #### 1 [id number], [id number], [id number] ####[facility] (DEFAULT)[address] [place] [address] Baso Abs# 0.1 x10 Normal 0.0-0.2 [facility] Comment on above: Performed By: #### 1 [id number], [id number], [id number] ####[facility] (DEFAULT)[address] [place] [address] 73951 Basophils/100 WBC (Bld) 1.2 % Normal 0.2-2.0 [facility] Comment on above: Performed By: #### 1 [id number], [id number], [id number] ####[facility] (DEFAULT)[address] [place] [address] 84652 Eos Abs# 0.3 x10 Normal 0.0-0.4 [facility] Comment on above: Performed By: #### 1 [id number], [id number], [id number] ####[facility] (DEFAULT)[address] [place] [address] 77617 Eosinophils/100 WBC (Bld) 3.6 % Normal 0.9-4.0 [facility] Comment on above: Performed By: #### 1 [id number], [id number], [id number] ####[facility] (DEFAULT)[address] [place] [address] 18279 Lymph Abs# 2.6 x10 Normal 1.3-2.9 [facility] Comment on above: Performed By: #### 1 [id number], [id number], [id number] ####[facility] (DEFAULT)[address] [place] [address] 88438 Lymphocytes/100 WBC (Bld) 34 % Normal 14-48 [facility] Comment on above: Performed By: #### 1 [id number], [id number], [id number] ####[facility] (DEFAULT)[address] [place] [address]01 King Abs# 0.6 x10 Normal 0.0-0.8 [facility] Comment on above: Performed By: #### 1 [id number], [id number], [id number] ####[facility] (DEFAULT)[address] [place] [address] 55076 Neut Abs# 3.9 x10 Normal 1.5-9.2 [facility] Comment on above: Performed By: #### 1 [id number], [id number], [id number] ####[facility] (DEFAULT)[address] [place] [address] Neutrophils/100 WBC (Bld) 53 % Normal 44-88 [facility] Comment on above: Performed By: #### 1 [id number], [id number], [id number] ####[facility] (DEFAULT)[address] [place] [address] BMP Standardon 01-04-2021 eGFR Non AA >60 Invalid Interpretation Code [facility] Comment on above: Performed By: #### 1 [id number], [id number], [id number] ####[facility] (DEFAULT)[address] [place] [address] eGFR AA >60 Invalid Interpretation Code [facility] Comment on above: Result Comment: [employer] [place] Kidney disease could be indicated at eGFRs of less than 60 ml/min/1.73m2. Kidney Failure is indicated at less than 15 ml/min/1.73m2 Performed By: #### 1 [id number], [id number], [id number] ####[facility] (DEFAULT)[address] [place] [address] 76717 Anion gap [Moles/Vol] 12.0 mmol/L Normal 5.0-19.0 [facility] Comment on above: Performed By: #### 1 [id number], [id number], [id number] ####[facility] (DEFAULT)[address] [place] [address] 86814 Calcium [Mass/Vol] 9.5 mg/dL Normal 8.9-10.3 [facility] Comment on above: Performed By: #### 1 [id number], [id number], [id number] ####[facility] (DEFAULT)[address] [place] [address] 26001 Chloride [Moles/Vol] 102 mmol/L Normal 101-111 [facility] Comment on above: Performed By: #### 1 [id number], [id number], [id number] ####[facility] (DEFAULT)[address] [place] [address] 49160 CO2 [Moles/Vol] 27 mmol/L Normal 21-32 [facility] Comment on above: Performed By: #### 1 [id number], [id number], [id number] ####[facility] (DEFAULT)[address] [place] [address] 81858 Creatinine [Mass/Vol] 0.77 mg/dL Normal 0.60-1.30 [facility] Comment on above: Performed By: #### 1 [id number], [id number], [id number] ####[facility] (DEFAULT)[address] [place] [address] 61917 Glucose [Mass/Vol] 88.0 mg/dL Normal 74.0-118.0 [facility] Comment on above: Performed By: #### 1 [id number], [id number], [id number] ####[facility] (DEFAULT)[address] [place] [address] 73308 Osmolality 275 mOsm/L Invalid Interpretation Code [facility] Comment on above: Performed By: #### 1 [id number], [id number], [id number] ####[facility] (DEFAULT)[address] [place] [address] 48677 Potassium [Moles/Vol] 3.4 mmol/L Low 3.6-5.1 [facility] Comment on above: Performed By: #### 1 [id number], [id number], [id number] ####[facility] (DEFAULT)[address] [place] [address] 96466 Sodium [Moles/Vol] 138.0 mmol/L Normal 136.0-144.0 [facility] Comment on above: Performed By: #### 1 [id number], [id number], [id number] ####[facility] (DEFAULT)[address] [place] [address] 71322 Urea nitrogen [Mass/Vol] 13 mg/dL Normal 8-26 [facility] Comment on above: Performed By: #### 1 [id number], [id number], [id number] ####[facility] (DEFAULT)[address] [place] [address] Urea nitrogen/Creatinine [Mass ratio] 17.0 mg/mg High 4.6-16.2 [facility] Comment on above: Performed By: #### 1 [id number], [id number], [id number] ####[facility] (DEFAULT)[address] [place] [address] CBC w/ Auto Diffon Erythrocyte distribution width (RBC) [Ratio] 13.7 % Normal 11.5-15.0 [facility] Comment on above: Performed By: #### 1 [id number], [id number], [id number] ####[facility] (DEFAULT)[address] [place] [address] Hematocrit (Bld) [Volume fraction] 37.5 % Normal 33.7-40.4 [facility] Comment on above: Performed By: #### 1 [id number], 7650072, [id number] ####[facility] (DEFAULT)[address] [place] [address] Hemoglobin (Bld) [Mass/Vol] 11.7 g/dL Normal 11.3-15.9 [facility] Comment on above: Performed By: #### 1 [id number], [id number], [id number] ####[facility] (DEFAULT)[address] [place] [address] Instr WBC 7.4 x10 Invalid Interpretation Code [facility] Comment on above: Performed By: #### 1 [id number], [id number], [id number] ####[facility] (DEFAULT)[address] [place] [address] Man Diff? Auto Normal [facility] Comment on above: Performed By: #### 1 [id number], [id number], [id number] ####[facility] (DEFAULT)[address] [place] [address] MCH (RBC) [Entitic mass] 26 pg Normal 24-34 [facility] Comment on above: Performed By: #### 1 [id number], [id number], [id number] ####[facility] (DEFAULT)[address] [place] [address] MCHC (RBC) [Mass/Vol] 31 g/dL Normal 26-37 [facility] Comment on above: Performed By: #### 1 [id number], [id number], [id number] ####[facility] (DEFAULT)[address] [place] [address] MCV (RBC) [Entitic vol] 84 fL Normal 81-100 [facility] Comment on above: Performed By: #### 1 [id number], [id number], [id number] ####[facility] (DEFAULT)[address] [place] [address] Platelet 393 x10 Normal 138-427 [facility] Comment on above: Performed By: #### 1 [id number], [id number], [id number] ####[facility] (DEFAULT)[address] [place] [address] Platelet mean volume (Bld) [Entitic vol] 9.7 fL Normal 6.3-10.2 [facility] Comment on above: Performed By: #### 1 [id number], [id number], [id number] ####[facility] (DEFAULT)[address] [place] [address] RBC 4.48 x10 Normal 3.70-5.30 [facility] Comment on above: Performed By: #### 1 [id number], [id number], [id number] ####[facility] (DEFAULT)[address] [place] [address] WBC 7.4 x10 Normal 3.5-10.5 [facility] Comment on above: Performed By: #### 1 [id number], [id number], [id number] ####[facility] (DEFAULT)[address] [place] [address] CULTURE, URINE, ROUTINEon CULTURE, URINE, ROUTINE SEE NOTE Abnormal [facility] Comment on above: Result Comment: CULTURE, URINE, ROUTINE Micro Number: [id number] Test Status: Final Specimen Source: Not given [...] loracarbef. Performed By: #### 3 95 #### [address], [address] [place] [id number] Hat Forming Machine Feeder: Heraclio Miller MD Vital Signs Date Time Vital Sign Value Performing Clinician Facility 04-28-2023 08:07-0500 Body height 180.3 cm Christy He MD Work Phone: [facility] 04-28-2023 08:07-0500 Body mass index (BMI) [Ratio] 30.42 kg/m2 Christy He MD Work Phone: [facility] 04-28-2023 08:07-0500 Body weight 98.88 kg Christy He MD Work Phone: [facility] 04-28-2023 08:07-0500 Diastolic blood pressure 80 mm[Hg] Christy He MD Work Phone: [facility] 04-28-2023 08:07-0500 Heart rate 74 /min Christy He MD Work Phone: [facility] 04-28-2023 08:07-0500 Respiratory rate 16 /min Christy He MD Work Phone: [facility] 04-28-2023 08:07-0500 Systolic blood pressure 120 mm[Hg] Christy He MD Work Phone: [facility] 04-10-2023 15:17-0500 Blood Pressure Location [facility] 04-10-2023 15:17-0500 Diastolic blood pressure 80 mm[Hg] [facility] 04-10-2023 15:17-0500 Heart rate 72 /min [facility] 04-10-2023 15:17-0500 Respiratory rate 16 /min [facility] 04-10-2023 15:17-0500 Systolic blood pressure 116 mm[Hg] [facility] 04-02-2023 11:41-0500 Body mass index (BMI) [Ratio] 30.68 kg/m2 Evan Jay DO Work Phone: [facility] 04-02-2023 11:41-0500 Body weight 99.79 kg Evan Jay DO Work Phone: [facility] 04-02-2023 11:41-0500 Diastolic blood pressure 72 mm[Hg] Evan Jay DO Work Phone: [facility] 04-02-2023 11:41-0500 Systolic blood pressure 124 mm[Hg] Evan Jay DO Work Phone: [facility] 09-29-2022 14:29-0400 Body height 180.34 cm Randy G Furlong Work Phone[facility] DO Work Phone: 09-29-2022 14:29-0400 Body mass index (BMI) [Ratio] 31.52 kg/m2 Randy G Furlong Work Phone: [facility] DO Work Phone: 09-29-2022 14:29-0400 Body surface area Derived from formula 2.22 m2 Randy G Furlong Work Phone: [facility] DO Work Phone: 09-29-2022 14:29-0400 Body weight 102.51 kg Randy G Furlong Work Phone: [facility] DO Work Phone: 09-29-2022 14:29-0400 Diastolic blood pressure 88 mm[Hg] Randy G Furlong Work Phone: [facility] DO Work Phone: 09-29-2022 14:29-0400 Heart rate 76 /min Randy G Furlong Work Phone: [facility] DO Work Phone: 09-29-2022 14:29-0400 Systolic blood pressure 138 mm[Hg] Randy G Furlong Work Phone: [facility] DO Work Phone: 09-12-2022 14:56-0400 Body height 180.34 cm Randy G Furlong Work Phone: [facility] DO Work Phone: 09-12-2022 14:56-0400 Body mass index (BMI) [Ratio] 30.96 kg/m2 Randy G Furlong Work Phone: [facility] DO Work Phone: 09-12-2022 14:56-0400 Body surface area Derived from formula 2.2 m2 Randy G Furlong Work Phone: [facility] DO Work Phone: 09-12-2022 14:56-0400 Body weight 100.7 kg Randy G Furlong Work Phone: [facility] DO Work Phone: 09-12-2022 14:56-0400 Diastolic blood pressure 88 mm[Hg] Randy G Furlong Work Phone: [facility] DO Work Phone: 09-12-2022 14:56-0400 Heart rate 78 /min Randy G Furlong Work Phone: [facility] DO Work Phone: 09-12-2022 14:56-0400 Systolic blood pressure 132 mm[Hg] Randy G Furlong Work Phone: [facility] DO Work Phone: 08-22-2022 09:47-0400 Diastolic blood pressure 100 mm[Hg] Randy G Furlong Work Phone: [facility] DO Work Phone: 08-22-2022 09:47-0400 Systolic blood pressure 142 mm[Hg] Randy G Furlong Work Phone: [facility] 250 DO Work Phone: 08-22-2022 09:46-0400 Body height 180.34 cm Randy G Furlong Work Phone: [facility] 250 DO Work Phone: 08-22-2022 09:46-0400 Body mass index (BMI) [Ratio] 30.68 kg/m2 Randy G Furlong Work Phone: [facility] 250 DO Work Phone: 08-22-2022 09:46-0400 Body surface area Derived from formula 2.2 m2 Randy Jaramillo Furlong Work Phone: [facility] 250 DO Work Phone: 08-22-2022 09:46-0400 Body weight 99.79 kg Randy Jaramillo Furlong Work Phone: [facility] 250 DO Work Phone: 08-22-2022 09:46-0400 Diastolic blood pressure 102 mm[Hg] Randy Jaramillo Furlong Work Phone: [facility] 250 DO Work Phone: 08-22-2022 09:46-0400 Heart rate 74 /min Randy Normanlong Work Phone: [facility] 250 DO Work Phone: 08-22-2022 09:46-0400 Systolic blood pressure 148 mm[Hg] Randy G Furlong Work Phone: [facility] 250 DO Work Phone: 07-21-2022 08:15-0400 Diastolic blood pressure 88 mm[Hg] Randy G Furlong Work Phone: [facility] 250 DO Work Phone: 07-21-2022 08:15-0400 Systolic blood pressure 122 mm[Hg] Randy G Furlong Work Phone: [facility] 250 DO Work Phone: 07-21-2022 08:14-0400 Body height 180.34 cm Randy Normanlong Work Phone: [facility] 250 DO Work Phone: 07-21-2022 08:14-0400 Body mass index (BMI) [Ratio] 30.82 kg/m2 Randy Jaramillo Furlong Work Phone: [facility] 250 DO Work Phone: 07-21-2022 08:14-0400 Body surface area Derived from formula 2.2 m2 Randy Normanlong Work Phone: [facility] 250 DO Work Phone: 07-21-2022 08:14-0400 Body weight 100.25 kg Randy Normanlong Work Phone: [facility] 250 DO Work Phone: 07-21-2022 08:14-0400 Diastolic blood pressure 86 mm[Hg] Randy Normanlong Work Phone: [facility] 250 DO Work Phone: 07-21-2022 08:14-0400 Heart rate 59 /min Randy Normanlong Work Phone: [facility] 250 DO Work Phone: 07-21-2022 08:14-0400 Systolic blood pressure 132 mm[Hg] Randy G Furlong Work Phone: [facility] 250 DO Work Phone: 07-14-2022 14:02-0400 Body temperature 99.32 [degF] Reid Bauer [facility] 07-14-2022 14:02-0400 Diastolic blood pressure 86 mm[Hg] Reid Bauer [facility] 07-14-2022 14:02-0400 Heart rate 76 /min Reid Bauer [facility] 07-14-2022 14:02-0400 SaO2% (BldA) [Mass fraction] 98 % Reid Bauer [facility] 07-14-2022 14:02-0400 Systolic blood pressure 120 mm[Hg] Reid Bauer [facility] 11-11-2021 19:25-0400 Body height 180.34 cm Jesusita Marlen Other [email or web address] Other 11-11-2021 19:25-0400 Body mass index (BMI) [Ratio] 28.59 kg/m2 Jesusita Gee Other [facility] Other 11-11-2021 19:25-0400 Body temperature 98.1 [degF] Jesusita Marlen Other [facility] Other 11-11-2021 19:25-0400 Body weight 92.99 kg Jesusita Marlen Other [facility] Other 11-11-2021 19:25-0400 Respiratory rate 18 /min Jesusita Gee Other [facility] Other 11-11-2021 19:25-0400 SaO2% (BldA) [Mass fraction] 96 % Jesusita Gee Other [facility] Other Encounters Encounter Date Encounter Type Care Provider Facility Start: 09-04-2023 End: 09-04-2023 ambulatory CHRISTY Eason [facility] Start: 08-31-2023 End: 08-31-2023 ambulatory [facility] Start: 08-20-2023 End: 08-20-2023 ambulatory HAJA LOPEZ [facility] [place] Start: 07-30-2023 End: 07-30-2023 ambulatory CHRISTY Yumi [facility] Start: 06-04-2023 End: 06-05-2023 ambulatory Jackson Reynoso BRENNON Facility:[facility] Start: 06-04-2023 End: 06-04-2023 Patient encounter procedure Jackson WILLETT [facility] [place] Start: 06-01-2023 End: 06-01-2023 ambulatory EVAN THOMPSON Not Available Start: 05-26-2023 ambulatory Reid Bauer Facility: [facility] Start: 05-21-2023 Admission to [facility] Yue eTllez [employer] DIRECTOR-BED OPERATOR Work Phone: [facility] Start: 05-21-2023 ambulatory Yue William huggins [employer] DIRECTOR-BED OPERATOR Work Phone: [facility] Start: 05-14-2023 Telephone encounter Niurka Stockton RN [facility] Start: 05-13-2023 End: 05-14-2023 ambulatory Jackson WILLETT Facility:[facility] Start: 05-12-2023 Telephone encounter Yasmin Irvin RN [facility] Start: 05-08-2023 Documentation procedure Niurka dorman [facility] [facility] Start: 05-08-2023 End: 05-08-2023 ambulatory NAYELI PETERSON [facility] Start: 05-08-2023 End: 05-08-2023 ambulatory CHRISTY A HE [facility] Start: 05-08-2023 End: 05-08-2023 ambulatory [facility] Start: 04-28-2023 End: 04-28-2023 ambulatory [facility] Start: 04-28-2023 End: 04-28-2023 Office outpatient new 60 minutes Christy He MD Work Phone: [facility] Comment on above: Malignant neoplasm o f lower-inner quadrant of right breast of female, estrogen receptor positive (CMS-HCC) (Primary Dx); Mass of lower inner quadrant of right breast Start: 04-24-2023 End: 04-24-2023 ambulatory [facility] Start: 04-14-2023 End: 04-14-2023 ambulatory [facility] Start: 04-10-2023 End: 04-11-2023 ambulatory Jackson WILLETT Facility: [facility] Start: 04-10-2023 End: 04-10-2023 Patient encounter procedure Jackson WILLETT General Surgery [facility] Start: 04-10-2023 End: 04-10-2023 ambulatory [facility] Start: 04-10-2023 ambulatory [facility] Start: 04-06-2023 End: 04-07-2023 ambulatory Chantal Bear Facility:[facility] Start: 04-06-2023 End: 04-06-2023 Patient encounter procedure Chantal Bear [facility] Start: 04-02-2023 End: 04-02-2023 ambulatory EVAN THOMPSON Not Available Start: 04-02-2023 End: 04-02-2023 Office outpatient visit 15 minutes Evan Thompson DO Work Phone: [facility] Comment on above: Mammogram abnormal; Invasive ductal carcinoma of breast, right (CMS/HCC) Start: 03-26-2023 End: 03-26-2023 ambulatory [facility] Facility:[facility] Start: 03-26-2023 End: 03-26-2023 ambulatory DO Randy Furlong Work Phone: [facility] Work Phone: Start: 03-26-2023 End: 03-26-2023 Departed Referred DO Randy Furlong Work Phone: [facility] Start: 03-20-2023 End: 03-21-2023 ambulatory BRITTANI MICHAEL Facility:[facility] Start: 03-20-2023 End: 03-20-2023 Patient encounter procedure BRITTANI MICHAEL [facility] Start: 10-15-2022 Chart Update Randy Cantu ng Work Phone[facility] DO Work Phone: Start: 10-14-2022 ambulatory BRITTANI MICHAEL Facili ty:[id number] Start: 09-29-2022 Patient encounter procedure Randy Jaramillo Furlong Work Phone: [facility] DO Work Phone: Start: 09-29-2022 ambulatory Ms. Brittani Michael Facility: Start: 09-12-[address] Christopher Harrison II Facility: Start: 09-12-2022 Office outpatient vi sit 5 minutes Randy G Furlong Work Phone: [facility] DO Work Phone: Start: 08-22-[address] Christopher Harrison II Facility: Start: 08-22-2022 Office outpatient vi sit 5 minutes Randy G Furlong Work Phone: [facility] DO Work Phone: Start: 08-18-2022 Chart Update Randy G Furlo ng Work Phone: [facility] DO Work Phone: Start: 08-15-2022 End: 08-16-2022 ambulatory Christopher Harrison Facility:[facility] Start: 08-15-2022 End: 08-15-2022 Patient encounter procedure Christopher Harrison [facility] Start: 07-21-[address] Christopher draper [facility] Facility: Start: 07-14-2022 End: 07-15-2022 ambulatory Reid Bauer Facility:[facility] Start: 07-14-2022 End: 07-14-2022 Patient encounter procedure Reid Bauer [facility] Start: 12-27-2021 End: 12-27-[address] DAYANA BASHIR Facility: Start: 12-13-2021 End: 12-14-[address] KAYE JARQUIN Facility: Start: 11-22-2021 End: 11-22-2021 ambulatory Hua Kraus [place] Facility:[facility] Start: 11-11-2021 End: 11-11-2021 ambulatory Jesusita Gee Other [facility] [employer] Other Start: 11-11-2021 Office outpatient vi sit 15 minutes Jesusita Gee [facility] Start: 08-26-2021 End: 08-28-2021 ambulatory Hua Kraus Reny Facility:[facility] Start: 08-22-2021 End: 08-22-2021 ambulatory RANDY Jaramillo MISSION Facility:[facility] Start: 08-13-2021 End: 08-13-2021 [facility] Start: 01-21-2021 End: 01-21-2021 ambulatory [facility] Facility:[facility] Start: 01-04-2021 End: 01-05-2021 ambulatory ARNDY CALLE Facility: [facility] Procedures Date Procedure Procedure Detail Performing Clinician Start: 07-30-2023 Follow-up visit Follow-up CHRISTY Eason HE Start: 03-07-2022 Adult depression screening assessment Niurka Stockton RN Start: 12-27-2021 Mammography Evan Mora o DO Work Phone: Start: 03-02-2005 Hysterectomy Reid mcfarland Abdominal hysterectomy Mour Clarke Biopsy of breast Jackson RODRIGUEZ L Chondrectomy of semilunar cartilage of knee Moghazala Bear Core needle biopsy o f breast using ultrasound guidance Moghazala Bear Excisional biopsy of breast Randy Calle Work Phone: Hysterectomy Randy jaramillo Work Phone: Insertion of implant able venous access port Jackson WILLETT Lipoma of back (disorder) Reid Bauer Repair of anterior cruciate ligament of knee joint Moghazala Bear Tonsillectomy Mojanelle Watson lssi Transurethral cystoscopy Haydee shauna Bear NEGATED: Highlighted row has not occurred! Total colonoscopy Randy Calle Work Phone: Plan of Treatment Date Care Activity Detail Author Start: 07-08-2027 DTaP,Tdap and Td Vaccines (2 - Td or Tdap) DTaP,Tdap and Td Vaccines (2 - Td or Tdap) [facility] or [facility] Start: 06-06-2024 Screening for malignant neoplasm of colon [facility] Start: 05-05-2024 Adult BMI Screening Adult BMI Screening [facility] Start: 02-27-2025 Tobacco Screening Tobacco Screening [facility] Start: 07-30-2023 End: 07-30-2023 Patient encounter procedure 07/30/2023 3:00 PM EDT Office Visit [facility] [address] [place] [id number] Christy He MD [id number] [facility] [address] [place] [address] [facility] Start: 06-01-2023 End: 06-01-2023 Patient encounter procedure 06/01/2023 1:30 PM EDT Office Visit [facility] [address] [place] [address] Evan Thompson, DO [address] [place] [address] [facility] Start: 04-08-2023 FUV, Provider: Christopher Harrison, Status: Pen, Time: 2:50 PM FUV, Provider: Christopher Harrison, Status: Pen, Time: 2:50 PM [facility] 250 DO Work Phone: Start: 03-07-2023 Depression Screening Depression Screening [facility] Start: 12-27-2022 Screening for malignant neoplasm of breast Mammogram [facility] Start: 10-31-2022 COVID-19 Vaccine ( season) COVID-19 Vaccine ( season) [facility] Start: 10-31-2022 Influenza vaccination [facility] Start: 09-29-2022 FUV, Provider: Brittani Avalos, Status: Pen, Time: 2:30 PM FUV, Provider: Brittani Avalos, Status: Pen, Time: 2:30 PM [facility] 250 DO Work Phone: Start: 09-18-2022 FUV, Provider: Christopher Harrison, Status: Pen, Time: 9:10 AM FUV, Provider: Christopher Harrison, Status: Pen, Time: 9:10 AM [facility] DO Work Phone: Start: 09-12-2022 WILMAN, Provider: ASHLEIGH MURGUIA BATTERY TESTER 1,[id number], Status: Pen, Time: 9:00 AM BPLM, Provider: ASHLEIGH MURGUIA BATTERY TESTER 1,[id number], Status: Pen, Time: 9:00 AM [facility] 250 DO Work Phone: Start: 08-22-2022 BPLM, Provider: ASHLEIGH MURGUIA BATTERY TESTER 1,[id number], Status: Pen, Time: 9:00 AM BPJOSE, Provider: ASHLEIGH MURGUIA BATTERY TESTER 1,[id number], Status: Pen, Time: 9:00 AM [facility] 250 DO Work Phone: Start: 2000 Screening for malignant neoplasm of cervix [facility] Start: 10-11-1991 Screening for malignant neoplasm of cervix Pap Smear [facility] Start: 1989 Administration of varicella zoster vaccine Zoster (Shingles) Vaccine (1 of 2) [facility] Start: 1988 Adult BMI Follow Up Plan Adult BMI Follow Up Plan [facility] Start: 1970 Screening for malignant neoplasm of colon [facility] Immunizations Immunization Date Immunization Notes Care Provider Fa cili 12-06-2020 Covid-19, Mrna, Lnp-s, Pf, 30 Mcg/0.3 Ml Dose, Winston-sucrose Niurka Stockton RN [facility] 12-06-2020 SARS-CoV-2 (COVID-19 ) mRNA BNT-162b2 ycn Bauer [facility] Comment on above: Result Comment: 2022: [id number] 12-06-2020 SARS-COV-2 (COVID-19 ) Vaccine, Unspecified Niurka Stockton RN [facility] 11-15-2020 SARS-CoV-2 (COVID-19 ) mRNA BNT-162b2 cyn Bauer [facility] Comment on above: Result Comment: 2022: [id number] 11-20-2019 influenza virus vaccine, unspecified formulation Reid Bauer [facility] 11-14-2019 influenza virus vaccine, unspecified formulation Reid Bauer [facility] 11-14-2019 influenza, seasonal, injectable Randy G Furlong Work Phone: [facility] 250 DO Work Phone: 12-13-2018 influenza virus vaccine, unspecified formulation Reid Bauer [facility] 12-13-2018 influenza, seasonal, injectable Randy G Furlong Work Phone: [facility] 250 DO Work Phone: 12-10-2017 influenza virus vaccine, unspecified formulation Reid Bauer [facility] 12-10-2017 influenza, injectable, quadrivalent, contains preservative Randy G Furlong Work Phone: [facility] 250 DO Work Phone: 07-07-2017 tetanus toxoid, reduced diphtheria toxoid, and acellular pertussis vaccine, adsorbed Reid Bauer [facility] 01-19-2017 influenza virus vaccine, unspecified formulation Reid Coatspsey [facility] 01-19-2017 influenza, injectable, quadrivalent, contains preservative Randy G Furlong Work Phone: [facility] 250 DO Work Phone: 01-07-2016 influenza virus vaccine, unspecified formulation Reid Coatspsey [facility] 01-07-2016 influenza, injectable, quadrivalent, contains preservative Randy G Furlong Work Phone: [place] [address] DO Work Phone: 12-01-2015 influenza virus vaccine, unspecified formulation Randy G Furlong Work Phone: [facility] 250 DO Work Phone: 12-01-2015 influenza, unspecified formulation Reid Coatspsey [facility] 12-27-2014 influenza virus vaccine, unspecified formulation Reid Coatspsey [facility] 12-27-2014 influenza, injectable, quadrivalent, contains preservative Randy G Furlong Work Phone: [place] [address] DO Work Phone: 12-06-2014 influenza, seasonal, injectable Niurka Stockton [facility] 01-05-2014 influenza virus vaccine, unspecified formulation Reid Coatspsey [facility] 01-05-2014 influenza, injectable, quadrivalent, contains preservative Randy G Furlong Work Phone: [place] [address] DO Work Phone: 12-29-2012 influenza virus vaccine, unspecified formulation Reid Coatspsey [facility] 12-29-2012 influenza, seasonal, injectable Randy G Furlong Work Phone: [facility] 250 DO Work Phone: 01-17-2009 novel [id number], preservative-free, injectable Randy G Furlong Work Phone: [facility] 250 DO Work Phone: NEGATED: Highlighted row has not occurred!04-10-2023 influenza virus vaccine, unspecified formulation Jackson RODRIGUEZWilliam [facility] [place] Payers Date Payer Category Payer Private Health Insurance [facility] [id number] 2023-Present [phone] [address] [place] [address] [id number] 2023 Self-pay [id number] 2023 Medicaid [id number] 2023 Medicaid [id number] 2016 Unknown [id number] 1970 Unknown [id number] 2.16.840.1.056428.3.579. 2. 1970 Unknown [id number] 2.16.840.1.852125.3.579. 2. 1970 Unknown [id number] 2.16.840.1.790092.3.579. 2. 1970 Unknown [id number] 2.16.840.1.397967.3.579. 2. 1970 Unknown [id number] 2.16.840.1.922217.3.579. 2. 1970 Unknown [id number] 2.16.840.1.483095.3.579. 2. 1970 Unknown [id number] 2.16.840.1.821960.3.579. 2. 1970 Unknown [id number] 2.16.840.1.687367.3.579. 2.593 1970 Unknown [id number] 2.16.840.1.902880.3.579. 2.593 1970 Unknown [id number] 2.16.840.1.572603.3.579. 2.356 1970 Unknown [id number] 2.16.840.1.843677.3.579. 2.356 1970 Unknown [id number] 2.16.840.1.511169.3.579. 2.356 1970 Unknown [id number] 2.16.840.1.619863.3.579. 2.356 1970 Unknown [id number] 2.16.840.1.162900.3.579. 2.1068 1970 Unknown [id number] 2.16.840.1.971411.3.579. 2.1286 1970 Unknown [id number] 2.16.840.1.886240.3.579. 2.128 1970 Unknown [id number] 2.16.840.1.344756.3.579. 2.128 1970 Unknown [id number] 2.16.840.1.297870.3.579. 2.1286 1970 Unknown [id number] 2.16.840.1.703157.3.579. 2.1286 1970 Unknown [id number] 2.16.840.1.660054.3.579. 2.1286 1970 Unknown [id number] 2.16.840.1.089283.3.579. 2.1286 1970 Unknown [id number] 2.16.840.1.128208.3.579. 2.1259 1970 Unknown [id number] 2.16.840.1.037932.3.579. 2.1259 1970 Unknown [id number] 2.16.840.1.220823.3.579. 2.727 1970 Unknown [id number] 2.16.840.1.072924.3.579. 2. 1970 Unknown [id number] 2.16.840.1.217828.3.579. 2. 1970 Unknown [id number] 2.16.840.1.646372.3.579. 2. 1970 Unknown [id number] 2.16.840.1.495721.3.579. 2. 1970 Unknown [id number] 2.16.840.1.342898.3.579. 2. 1970 Unknown [id number] 2.16.840.1.914171.3.579. 2. 1970 Unknown [id number] 2.840.1.460122.3.579. 2.1243 1970 Unknown [id number] 2.16840.1.818276.3.579. 2.1285 1970 Unknown [id number] 2.16.840.1.462052.3.579. 2.1285 1970 Unknown [id number] 2.16.840.1.194507.3.579. 2.1285 1970 Unknown [id number] 2.16840.1.691251.3.579. 2.1285 1970 Unknown [id number] 2.16.840.1.258326.3.579. 2.1285 1970 Unknown [id number] 2.16840.1.725252.3.579. 2.1285 1970 Unknown [id number] 2.16.840.1.529892.3.579. 2.1285 1970 Unknown [id number] 2.16840.1.198450.3.579. 2.1285 1970 Unknown [id number] 2.16.840.1.468336.3.579. 2.1286 1959 Private Health Insurance [id number] 2.16.840.1.072270.19 Unknown Unknown [id number] Unknown [id number] 2.16.840.1.812847.3.579. 2.531 Social History Date Type Detail Facility Unknown if ever smoked [employer] Other Start: 02-27-2022 End: 01-04-2023 Sex Assigned At [facility] Start: 07-14-2022 End: 06-04-2023 Tobacco smoking status Never smoked tobacco (finding) [facility] Tobacco smoking status Never [facility] Start: 02-27-2022 End: 01-04-2023 Social alcohol use Social alcohol use [facility] Start: 1970 Sex Assigned At Female [facility] Start: 04-02-2023 Alcohol intake Lifetime non-drinker (finding) [facility] Start: 01-04-2023 Alcohol Comment Caffeine intake: 1-2 cups per day [facility] Start: 1970 Sex Assigned At Not on file [facility] Start: 04-28-2023 Tobacco use and exposure Smokeless tobacco non-user [facility] Start: 04-28-2023 Alcohol intake Current drinker of alcohol (finding) [facility] Do you belong to any clubs or organizations such as restorationist groups, unions, fraternal or athletic groups, or school groups? Yes [facility] Are you now , , , , never or living with a partner? [facility] How often to you hav e a drink containing alcohol? 2-3 time sa week [facility] How many standard dr inks containing alcohol do you have on a typical day? 1 or 2 [facility] How often do you hav e 6 or more drinks on 1 occasion? Less than monthly [facility] Do you feel stress - tense, restless, nervous, or anxious, or unable to sleep at night because your mind is troubled all the time - these days [OSQ] To some extent [facility] Start: 02-27-2022 Education [employer] Functional Status Date Assessment Result Facility 04-10-2023 Functional Status N/A [facility] shukri [place] 07-14-2022 Functional Status N/A [facility] Clinical Notes 01-18-2021 to 08-31-2023 Tumor Conference Note - Yue Tellez APRN-ESPERANZA - 05/21/2023 11:59 PM EDTTumor Conference Note - Yue Tellez APRN-ESPERANZA - 05/21/2023 11:59 PM Fidelina He MD - 04/28/2023 8:00 AM EST Note Date & Type Note Facility 08-31-2023 Note DC Cardiology - [facility] Subjective Yasmin Jones is a 52 y.o. year old female patient being seen to establish care. Ref from Dr. Hope for LE edema, despite being on 3 diuretics. She is currently undergoing chemotherapy for breast cancer. She saw [facility] Cardiology in Apr and they ordered baseline echo to be completed prior to chemotherapy. She is scheduled for another echo in 2 weeks. She has previously seen [facility] cardiology in [place] for hypertension. She denies chest pain, SOB, palpitations, and lightheadedness/syncope. Patient Active Problem List Diagnosis Arthritis of left knee Asthma, exercise induced Breast cancer (CMS/HCC) Cardiac arrhythmia Chronic hypokalemia Complete tear, knee, anterior cruciate ligament Complex ovarian cyst Epidermoid cyst of skin Essential (primary) hypertension Hypertensive kidney disease, stage II Internal derangement of right knee Invasive ductal carcinoma of breast, right (CMS/HCC) Iron deficiency anemia Malignant neoplasm of lower-inner quadrant of right breast of female, estrogen receptor positive (CMS/HCC) Palpitations Primary osteoarthritis Recurrent UTI Secondary cataract of right eye Well woman exam with routine gynecological exam Family History Adopted: Yes Problem Relation Name Age of Onset Heart attack Father Social History Tobacco Use Smoking status: Never Smokeless tobacco: Never Substance Use Topics Alcohol use: Not Currently HPI Yasmin is seen as a new patient due to lower extremity edema and hypertension. She is a 52-year-old woman with history of hypertension currently maintained on lisinopril 20 mg daily, metoprolol succinate 100 mg once daily, in addition to chlorthalidone, furosemide and spironolactone. Her blood pressure recently became controlled and is actually low today. One of her main complaints is bilateral lower extremity swelling that has been present for rather long time but has been getting worse after she started chemotherapy for breast cancer in April 2023. She underwent an echocardiogram in May 2023 that showed normal ventricular function and mildly elevated right-sided pressures with an RVSP of 36. There were no valvular abnormalities. Other than the lower extremity edema, she denies chest pain, shortness of breath palpitations and other cardiac symptoms. She is currently not dizzy or lightheaded. Review of Systems Cardiovascular: Positive for leg swelling. Negative for chest pain, dyspnea on exertion, irregular heartbeat, orthopnea, palpitations and syncope. Respiratory: Negative for cough and shortness of breath. Musculoskeletal: Negative for arthritis, falls and neck pain. Gastrointestinal: Negative for diarrhea and dysphagia. Neurological: Negative for light-headedness and loss of balance. Objective Visit Vitals BP 98/74 (BP Location: Left arm, Patient Position: Sitting) Pulse 83 Ht 1.803 m (5' 11 ) Wt 104 kg (230 lb) SpO2 96% BMI 32.08 kg/m??? Smoking Status Never BSA 2.28 m??? Physical Exam Constitutional: Appearance: She is well-developed. She is obese. She is not ill-appearing. HENT: Head: Normocephalic and atraumatic. Nose: Nose normal. Eyes: General: No scleral icterus. Pupils: Pupils are equal, round, and reactive to light. Neck: Thyroid: No thyromegaly. Vascular: No JVD. Cardiovascular: Rate and Rhythm: Normal rate and regular rhythm. Pulses: Radial pulses are 2+ on the right side and 2+ on the left side. Heart sounds: Normal heart sounds. No murmur heard. No friction rub. No gallop. Comments: Lymphedema Pulmonary: Effort: Pulmonary effort is normal. No respiratory distress. Breath sounds: Normal breath sounds. No wheezing or rales. Chest: Chest wall: No tenderness. Abdominal: General: Bowel sounds are normal. There is no distension. Palpations: Abdomen is soft. Tenderness: There is no abdominal tenderness. Musculoskeletal: General: No swelling. Cervical back: Neck supple. Right lower le+ Pitting Edema present. Left lower le+ Pitting Edema present. Skin: General: Skin is warm and dry. Neurological: General: No focal deficit present. Mental Status: She is alert and oriented to person, place, and time. Psychiatric: Mood and Affect: Mood normal. Behavior: Behavior is cooperative. Judgment: Judgment normal. Allergies Allergies Allergen Reactions Meperidine Swelling, Unknown and Other Medications Current Outpatient Medications: aspirin 325 mg tablet, Take 325 mg by mouth in the morning., Disp: , Rfl: chlorthalidone (Hygroton) 25 mg tablet, Take 25 mg by mouth in the morning., Disp: , Rfl: cyclobenzaprine (Flexeril) 10 mg tablet, TAKE ONE TABLET BY MOUTH ONCE DAILY IN THE EVENING, Disp: , Rfl: DULoxetine (Cymbalta) [address] capsule, Take 30 mg by mouth in the morning. Do not crush or chew., Disp: , Rfl: furosemide (Lasix) 20 mg tablet, Take 20 mg (more content not included)... [facility] 05-21-2023 Miscellaneous Notes Images from the original note were not included. [facility]id[facility] Note Patient Name: Yasmin Jones : 1970 Conference Type:Breast Conference Date: 05/21/23 Patient's Care Team: Patient Care Team: Amy Collier APRN-BED OPERATOR as PCP - General Jessica Hope MD as Consulting Physician (Internal Medicine) Evan Thompson DO as Referring Physician (Obstetrics and Gynecology) Physicians in attendance: Dr. Melton - moderator Site/Laterality/Histology: 03/26/2023 U/S guided, right breast 4 o'clock, core biopsy ([facility]: re-read TT): 11mm, invasive ductal carcinoma with areas of necrosis grade 3 score=8. LVI negative. ER 12-15% MA- HER2/Yohan by IHC negative 0. Patient Presentation: patient palpated lump - - > abnormality seen on imaging; right axillary lymphadenopathy on CBE Cancer Staging Malignant neoplasm of lower-inner quadrant of right breast of female, estrogen receptor positive (CMS-HCC) Staging form: Breast, AJCC 8th Edition - Clinical: Stage IIIC (cT2, cN3, cM0, G3, ER+, MA-, HER2-) - Signed by Christy He MD on 05/21/[address]: [address] He 04/28/23; treating as TNBC - neoadjuvant chemotherapy Based on the information discussed during the conference, the following should be considered: Additional Work-up: []CT Scan [x]PET - done [x]MRI - done []Chest X-ray []Tumor Marker: []Bone Scan []KUB []US []Mammogram []HPV []Endoscopy []EBUS []EUS []Pathology []Other: Trials Available: Potentially, pending further information ?S2010 For trial specifics or questions regarding trials, Please call Clinical Research at [phone] National Guidelines discussed (NCCN, AUA, NCI, etc): Yes Consults to consider: [] Surgery [] Plastics [x] Hem/Onc Dr. Hope [x] Rad/Onc Referral placed [] Physical RX [] Oncofertilty [] Physical Therapy/Rehab []Psychosocial Services [] Nutrition [x] Genetics - referral placed [] Palliative Care [x] Other: BSO anticipated as soon as therapy completed Physician Moderator: Date: 05/21/23 This summary of the conference discussion is based on information available during conference presentation Questions can be directed to the Cancer Registry: [phone] documented in this encounter [employer] 05-21-2023 Progress note Formatting of t his note is different from the original. Images from the original note were not included. Multidisciplinary Cancer Conference Center Note Patient Name: Yasmin Jones : 1970 Conference Type:Breast Conference Date: 05/21/23 Patient's Care Team: Patient Care Team: AMEENA Garcia as PCP - General Jessica Hope MD as Consulting Physician (Internal Medicine) Evan Thompson DO as Referring Physician (Obstetrics and Gynecology) Physicians in attendance: Dr. Melton - moderator Site/Laterality/Histology: 03/26/2023 U/S guided, right breast 4 o'clock, core biopsy ([facility]: re-read TTH): 11mm, invasive ductal carcinoma with areas of necrosis grade 3 score=8. LVI negative. ER 12-15% MA- HER2/Yohan by IHC negative 0. Patient Presentation: patient palpated lump - - > abnormality seen on imaging; right axillary lymphadenopathy on CBE Cancer Staging Malignant neoplasm of lower-inner quadrant of right breast of female, estrogen receptor positive (CMS-HCC) Staging form: Breast, AJCC 8th Edition - Clinical: Stage IIIC (cT2, cN3, cM0, G3, ER+, MA-, HER2-) - Signed by Christy He MD on 05/21/2023 Recommendations: Consult with Dr. He 04/28/23; treating as TNBC - neoadjuvant chemotherapy Based on the information discussed during the conference, the following should be considered: Additional Work-up: []CT Scan [x]PET - done [x]MRI - done []Chest X-ray []Tumor Marker: []Bone Scan []KUB []US []Mammogram []HPV []Endoscopy []EBUS []EUS []Pathology []Other: Trials Available: Potentially, pending further information ?S2010 For trial specifics or questions regarding trials, Please call Clinical Research at [phone] National Guidelines discussed (NCCN, AUA, NCI, etc): Yes Consults to consider: [] Surgery [] Plastics [x] Hem/Onc Dr. Hope [x] Rad/Onc Referral placed [] Physical RX [] Oncofertilty [] Physical Therapy/Rehab []Psychosocial Services [] Nutrition [x] Genetics - referral placed [] Palliative Care [x] Other: BSO anticipated as soon as therapy completed Physician Moderator: Date: 05/21/23 This summary of the conference discussion is based on information available during conference presentation Questions can be directed to the Cancer Registry: [phone] [employer] Work Phone: 05-14-2023 Miscellaneous Notes Summary: Post-biopsy assessment Call placed to patient to check status following recent axilla biopsy. Patient reports lots of bruising and some tenderness with pressure @ biopsy site. Patient is aware of biopsy results. She was encouraged to contact the Breast Center if she develops any new problems at biopsy site. Voices understanding. Support offered. documented in this encounter [facility] 05-14-2023 Telephone encounter Note Summary: Post-biopsy assessment Call placed to patient to check status following recent axilla biopsy. Patient reports lots of bruising and some tenderness with pressure @ biopsy site. Patient is aware of biopsy results. She was encouraged to contact the Breast Center if she develops any new problems at biopsy site. Voices understanding. Support offered. [facility] 05-12-2023 Miscellaneous Notes Notified Emiliana He office faxing over reports. documented in this encounter [facility] 05-12-2023 Telephone encounter Note Notified Emiliana He office faxing over reports. [facility] 05-08-2023 History of Presen t illness Narrative Summary: Post-biopsy Discharge Instructions 13:50 Met with patient following pre-op MRI and Rt. axilla biopsy to review post-biopsy care instructions. Reviewed written instructions and answered related questions. Gifted with a basket of Care, reviewing its contents and suggestions for its use; patient will complete permission slip @ home. Encouraged to call if any concerns related to biopsy site/breast should occur. Provided contact numbers and office hours. Written copy of care instructions provided to patient. Voices understanding of all information reviewed. documented in this encounter [facility] 04-28-2023 History of Presen t illness Narrative Images from the original note were not included. 04/28/23 DIAGNOSIS: Yasmin Jones is a 52 y.o. female who presents to the Breast Surgery Clinic for evaluation and recommendations regarding her recently diagnosed right breast cancer, IDC grade 3, ER weakly +, MA -, Her 2 Negative (IHC score 0). HISTORY OF PRESENT ILLNESS : Yasmin Jones is a 52 y.o. female who self-palpated a mass in her right breast sometime in early March,. Mammogram was ordered for investigation and performed on 03/07/2023. There was a new partially circumscribed 2.6 x 2 cm mass at the lower inner quadrant, mid to posterior breast with associated microcalcifications. New right axillary lymphadenopathy with an enlarged lymph node measuring 2.7 x 1.8 cm, BI-RADS 0. Right diagnostic mammogram and right breast ultrasound was performed on 03/20/23 which showed there is a persistent partially circumscribed 2.9 x 2.3 cm mass with pleomorphic calcifications. Ultrasound shows corresponding 2.7 x 2.5 x 2.5 angular mass, round in shape with multiple calcifications. Malignancy is suspected. Ultrasound guided biopsy was recommended, BI-RADS 5. Right breast ultrasound guided biopsy was performed on 03/26/23, pathology revealed Invasive mammary carcinoma. Patient met with Medical Oncology on 04/07/2023 to discuss neoadjuvant chemotherapy. She met with Dr. Hope on 04/10/2023, at which time systemic staging with PET was ordered, as well as MRI of the breast. PET scan was scheduled for 04/17/2023. Neoadjuvant chemotherapy was recommended based on keynote 522. Multi gene genetic testing was ordered at that time as well. Patient presents for evaluation and discussion of surgical management options for her newly diagnosed breast findings. She denies weight loss, bone pain, vision changes, headaches, and abdominal pain. History of multiple prior right breast excisional biopsies. GYNECOLOGICAL HISTORY & RISK ASSESSMENT: First day of last menstrual period (if still having periods): No LMP recorded. Patient has had a hysterectomy. Age at which you started menses (periods): 12-13 yrs Have you ever used hormonal control (patch, pill, shot, implant, IUD)? Yes What is your current control method, if applicable? N/A Have you ever been and, if so, how many times? 2 How many children do you have? 1 How old were you at your first delivery? 20-24 yrs Did you breastfeed? No Have you had a hysterectomy? Yes Do you have your ovaries? Yes Age at start of menopause: N/A Have you ever used hormone replacement therapy? No Using currently? N/A How many breast biopsies have you had, including this one, if applicable? 2 Have you had breast surgery before? Right Date/side/reason: lumpectomy 1989 Have you or any family members had genetic testing? Yes Do you have Ashkenazi Pentecostal ancestry? No HEALTH HISTORY: The patient's past medical history, medications, and allergies have been reviewed in [facility]. PAST MEDICAL HISTORY: Past Medical History: Diagnosis Date Hypertension Knee pain PAST SURGICAL HISTORY: Past Surgical History: Procedure Laterality Date ARTHROSCOPIC REPAIR ACL Right 2006 ARTHROSCOPIC REPAIR ACL Left 08/26/2021 BREAST BIOPSY HYSTERECTOMY MENISCECTOMY TUMOR REMOVAL back-benign MEDICATIONS: Current Outpatient Medications: albuterol (PROVENTIL,VENTOLIN) 2.5 mg /3 mL (0.083 %) nebulizer solution, Inhale 3 mL (2.5 mg total) by nebulization every 6 (six) hours as needed for wheezing., Disp: 75 mL, Rfl: 1 carvediloL (COREG) 25 mg tablet, Take 1 tablet (25 mg total) by mouth in the morning and at bedtime., Disp: 180 tablet, Rfl: 1 ferrous sulfate 325 (65 FE) mg tablet, Take 1 tablet (325 mg total) by mouth in the morning., Disp: 90 tablet, Rfl: 2 fluticasone propionate (FLONASE) 50 mcg/actuation nasal spray, 1 spray in each nostril Nasally Once a day, Disp: , Rfl: lisinopril-hydroCHLOROthiazide (PRINZIDE,ZESTORETIC) 20-12.5 mg per tablet, Take 1 tablet by mouth daily., Disp: 90 tablet, Rfl: 1 potassium chloride (K-TAB,KLOR-CON) 10 MEQ CR tablet, Take 1 tablet (10 mEq total) by mouth in the morning., Disp: , Rfl: predniSONE (DELTASONE) 5 mg tablet, Take 1 tablet (5 mg total) by mouth in the morning., Disp: , Rfl: traZODone (DESYREL) 50 mg tablet, TAKE ONE TABLET BY MOUTH ONCE DAILY AT NIGHT, Disp: 90 tablet, Rfl: 1 cyclobenzaprine (FLEXERIL) 10 mg tablet, TAKE ONE TABLET BY MOUTH ONCE DAILY IN THE EVENING, Disp: 30 tablet, Rfl: 11 ALLERGIES: Allergies Allergen Reactions Meperidine Adhesive Rash FAMILY HISTORY No family history on file. SOCIAL HISTORY Social History Tobacco Use Smoking status: Never Smokeless tobacco: Never Substance Use Topics Alcohol use: Yes Drug use: Never REVIEW OF SYSTEMS: A review of systems was performed. Pertinent patient information is noted below: Review of Systems Constitutional: Negative for chills, fatigue, fever and unexpected weight change. HENT: Negative for congestion, hearing loss, postnasal drip, sinus pressure and sore throat. Eyes: Negative for pain and discharge. Respiratory: Negative for cough, shortness of breath and wheezing. Cardiovascular: Negative for chest pain and palpitations. Gastrointestinal: Negative for abdominal pain, constipation, diarrhea, nausea and vomiting. Genitourinary: Negative for dysuria, frequency, menstrual problem, pelvic pain, vaginal discharge and vaginal pain. Musculoskeletal: Negative for back pain and myalgias. Skin: Negative for rash and wound. Neurological: Negative for dizziness, weakness and headaches. Psychiatric/Behavioral: Negative for confusion. The patient is not nervous/anxious. Breasts: breast lump PHYSICAL EXAMINATION PHYSICAL EXAM: Vitals: BP 120/80 (BP Site: Left Arm, BP Postition: Sitting, BP CUFF SIZE: M (9-13 inches)) Pulse 74 Resp 16 Ht 180.3 cm (5' 10.98 ) Wt 98.9 kg (218 lb) BMI 30.42 kg/m Weight: Weight: 98.9 kg (218 lb) General Appearance: Yasmin is a well-appearing female who is in no acute distress. Head: Normocephalic, without obvious abnormality, atraumatic Neck: There is no appreciable lymphadenopathy in the cervical, supraclavicular, and infraclavicular lymph node basins. Breast: Examined in upright and supine position. Right breast: Slightly distorted lower pole contour with inverted nipple and large mass occupying majority of the lower pole, normal nipple projection, no nipple discharge, no skin lesions, no surgical scars Right axilla: Firm mobile palpable lymphadenopathy Left breast: normal contour, no masses, normal nipple projection, no nipple discharge, no skin lesions, no surgical scars Left axilla: no palpable lymphadenopathy Pulmonary: Respirations unlabored Cardiac: Regular rate Abdomen: Abdomen is soft without significant tenderness, masses, organomegaly or guarding. Extremities: Extremities normal, atraumatic, no cyanosis or edema Psychologic: Appropriate affect RADIOGRAPHIC IMAGING BREAST IMAGING reviewed and discussed with the patient: PATHOLOGY The following pathology reports were reviewed and discussed with the patient: ASSESSMENT AND PLAN: Encounter Diagnoses Name Primary? Malignant neoplasm of lower-inner quadrant of right breast of female, estrogen receptor positive (CMS-HCC) Yes Mass of lower inner quadrant of right breast DIAGNOSIS: Yasmin Jones is a 52 y.o. female with grade 3 right breast invasive carcinoma, ER weakly positive/MA negative, Her-2 negative. Cancer Staging No matching staging information was found for the patient. PLAN OF CARE: 1. Surgery. In the terms of the surgical management of her breast cancer, we discussed both mastectomy and breast conservation surgery--lumpectomy coupled with whole breast radiation. She was advised that the 10-year survival is equivalent between these two treatments arms, although the local recurrence rate is higher in the lumpectomy group. We discussed at length the rates of local recurrence between these two treatments. We very briefly discussed surgery at this time, she has not a candidate for primary surgery given her tumor histology and biology. She will be starting neoadjuvant chemotherapy under the care of Dr. Hope based on the keynote 522 trial. 2. Axillary Staging. She has an abnormal right axillary lymph node on clinical exam today. She is scheduled for both PET and breast MRI. I suspect that both of those will corroborate the axillary findings. She will require a core needle biopsy of the abnormal right axillary lymph node to demonstrate metastatic disease. If this lymph node biopsy is positive, and if she does not have a high burden of axillary disease on imaging, she may be a candidate for targeted axillary dissection with dual-tracer sentinel lymph node biopsies, frozen section, possible axillary lymph node dissection at the time of her definitive surgery. If frozen section demonstrates pathologic complete response in the axilla, she may be able to avoid full axillary lymph node dissection. I will place a referral to our reconstructive surgeon at her next visit to discuss lymphovenous bypass should she need ALND. If ALND is necessary, the risk and benefits of the procedure, including but not limited to, lymphedema, paresthesias, and decreased range of motion at the shoulder, were explained to the patient at length in clinic today. She voiced understanding and wants to proceed. 3. Systemic Chemotherapy. Neoadjuvant chemotherapy per Dr. Hope. 4. Radiation. The necessity of adjuvant radiation therapy was also discussed with the patient today. In the setting of mastectomy, surgical pathology including lymph node positivity, tumor size, and margins are used to guide recommendations for adjuvant therapy. In the setting of breast conservation therapy, radiation is an integral component of treatment. She will be evaluated by our radiation oncologists for further discussion. Radiation therapy would be completed after any systemic chemotherapy recommendations are established and completed, if deemed necessary. Given her presumed lymph node positivity I will place referral to Radiation Oncology today. 5. Endocrine Therapy. Receptors will be repeated post NACT. Endocrine tx based on final pathology, at the discretion of Dr. Hope. 6. Genetics. Genetic testing was explained and consultation was offered. Referral has been placed. 7. Pre-operative work up: referral to Pre-Anesthesia Testing clinic will be placed when appropriate. 8. Clinical Trial Eligibility: TBD. A comprehensive consultation was completed, which included counseling and coordination of care with the patient as well as describing her diagnosis and management of her breast cancer. Breast radiographic imaging and pathology were reviewed at length. The various surgical options, pros and cons of each and expected outcomes were explained at length. She was informed of the general risks of surgery, including, but not limited to, bleeding, infection, myocardial infection, , prolonged intubation, risk for deep venous thrombosis or pulmonary embolism. The patient understands the risks; any and all questions were answered to her satisfaction. Based on this discussion in clinic with the patient, the following plan has been made: PET Genetics MRI ordered and expedited Need right ax biopsy Referral placed to [facility] rad onc RV 3 months, PRS referral at that time for possible LYMPHA She voiced understanding of her treatment plan and was encouraged to contact the Breast Care Clinic with any questions or concerns. Total time spent was 80 minutes: Preparing to see the patient (e.g., review of tests) Obtaining and/or reviewing separately obtained history Performing a medically appropriate examination and/or evaluation Counseling and educating the patient/family/caregiver Ordering medications, tests, or procedures Referring and communicating with other health manager primary care (not separately reported) Documenting clinical information in the electronic or other health record Independently interpreting results (not separately reported) and communicating results to the patient/family/caregiver Please note that portions of this note were generated using voice recognition [employer] dictation software. Although every effort was made to ensure the accuracy of this automated room inspector, some errors in room inspector may have occurred. Christy He MD [facility] Breast Surgery [phone] documented in this encounter [facility] 04-12-2023 Note Chief Complaint consultation for breast [...] quadrant of right female breast) plan left icvpav-[id number] insertion under anesthesia, informed consent obtained. Ancef [...] virus vaccine, inactivate (more content not included)... [facility] Comment on above: Result Comment: Elec tronically Signed By: BRENNON JAMESON, Jackson Solis.kevin\Date and Time Signed: 04/12/23 19:14 EST 04-02-2023 History of Presen t illness Narrative Reason for Appointment: Patient ID: Yasmin Eason Widruthy is a 52 y.o. female who presents for abnormal test results (Discuss the results of her abnormal mammogram results done @ [facility]) Patient presents today for Consult appointment. Current [...] History: Diagnosis Date Cardiac dysrhythmia HTN (hypertension) ([facility]/HCC) Hypokalemia Migraine headache (CMS/HCC) Family History Adopted: [...] nursing note reviewed. Exam conducted with a medical appointment clerk present. Vitals: Estimated body mass index is [...] diagnostic right breast mammogram done at [facility] on 03/20/23. Results were highly suggestive of malignancy and radiology recommended that patient obtain an ultrasound guided breast biopsy. Patient had ultrasound guided right breast biopsy obtained at [facility] on 03/26/23, biopsy was sent to pathology at [facility]. Reviewed results with patient and discussed plan of care. Patient to have referral to Oncology Dr. Hope and General Surgery Dr. Willett. U and will reach out to office with [...] and if patient does not hear from human resources support specialist by the time she receives letter to contact Specialist to schedule. Advised patient on VM to call office with any questions. --Catie Johnson LPN documented in this encounter [facility] 07-14-2022 Hospital Discharg e instructions Patient Education [...] numbers. This can be done either in [place]ian ([place] or metric measurements. Note that charts and online BMI calculators are available to help you find your BMI quickly and easily without having to do these calculations yourself. To calculate your BMI in [place]ian ([place] measurements: 1.Measure your weight in pounds [...] Centers for Disease Control and Prevention: www.cdc.gov [place] Heart Association: www.heart.org National Heart, Lung, and Blood [place]: www.nhlbi.nih.gov Summary Body mass index (BMI) is a number that is calculated from a person's weight and height. BMI may help estimate how much of a person's weight is composed of fat. BMI can help identify those who may be at higher risk for certain medical problems. BMI can be measured using Cambodian measurements or metric measurements. BMI charts are used to identify whether you are underweight, normal weight, overweight, or obese. This information is not intended to replace advice given to you by your health care provider. Make sure you discuss any questions you have with your health care provider. Document Revised: 11/09/2019 Document Reviewed: 09/16/2019 [employer] Patient Education 2022 [email or web address]. 07/14/2022 14:20:38 Upper Respiratory Infection, Adult Upper [...] medicines to help relieve symptoms, such as: Ejno-pcc-gazbdzl cold medicines. Cough suppressants. Coughing is a [...] and other clear broths. General instructions Take jycg-pwa-bcfgyqt and prescription medicines only as told by [...] and water are not available, use hand timber management specialist. Avoid touching your mouth, face, eyes, or [...] provider. Document Revised: 09/18/2021 Document Reviewed: 09/18/2021 [employer] Patient Education 2022 [email or web address]. Follow Up Care 07/14/2022 13:35:56 With:BRENNON JAMESON, BOBBY Sifuentes Address:Unknown When: Unknown [facility] 11-12-2021 History general N arrative - Reported Type Medical History heart dysrythmia Medical History Night sweats Medical History Insomnia, unspecified type Medical History hypertension Surgical History hysterectomy dec 2003 Surgical History acl reconstruction right knee n ov 2004 Surgical History leg dec 2014 Hospitalization History see above [employer] Other [id number] Evaluation note* Encounter Date Diagnosis Assessment Notes [...] weeks for the cough to go away [email or web address] Other 06-28-2022 Note [id number]#1.00[facility]06-28-2022 [id number]#1.00[facility] 08-26-2021 [facility] SURGERY Clinical Discharge Summary PERSON INFORMATION Name YASMIN JONES Age 50 Years 1970 Sex FEMALE Language Cambodian PCP RANDY CALLE Marital Status Med Service Ambulatory Surgery Acct# Arrival 08/26/2021 11:01:00 Visit Reason SURGERY- LEFT KNEE SCOPE Acuity LOS 003 04:51 Address: [address] [facility] [id number] Comment: PROVIDER INFORMATION VITALS INFORMATION Vital Sign Triage Latest Temp Oral Temp Temporal Temp Intravascular Temp Axillary Temp Rectal 02 Sat 100 % 97 % Respiratory Rate Peripheral Pulse Rate Apical Heart Rate Blood Pressure / 90 mmHg / 103 mmHg Comment: MEDICAL INFORMATION Allergy Info: Adhesive Bandage; Demerol Prescriptions Given: acetaminophen-hydrocodone (!-Kendleton 5 mg-325 mg oral tablet) 1 tab(s) [...] Oral every day. potassium chloride (Potassium Chloride (Qgd-Ofkd-Pey 10) 10 mEq oral tablet, extended release) 1 tab(s) Oral every day. traZODone (traZODone 50 mg oral tablet) 1 tab(s) Oral once a day (at bedtime). Medication List: Medications to Continue That Have Not Changed Other Medications acetaminophen-hydrocodone (!-Kendleton 5 mg-325 mg oral tablet) 1 tab(s) Oral Every 6 hours as needed as needed for pain. carvedilol (carvedilol 12.5 mg oral tablet) 1 tab(s) Oral 2 times a day. cyclobenzaprine (cyclobenzaprine 10 mg oral tablet) 1 tab(s) Oral At bedtime as needed for spasm. hydroCHLOROthiazide (hydroCHLOROthiazide 25 mg oral tablet) 1 tab(s) Oral every day. potassium chloride (Potassium Chloride (Tyy-Hmvl-Oam 10) 10 mEq oral tablet, extended release) 1 tab(s) Oral every day. traZODone (traZODone 50 mg oral tablet) 1 tab(s) Oral once a day (at bedtime). Medications to Continue That Have Not Changed Other Medications acetaminophen-hydrocodone (!-Kendleton 5 mg-325 mg oral tablet) 1 tab(s) Oral Every 6 hours as needed as needed for pain. carvedilol (carvedilol 12.5 mg oral tablet) 1 tab(s) Oral 2 times a day. cyclobenzaprine (cyclobenzaprine 10 mg oral tablet) 1 tab(s) Oral At bedtime as needed for spasm. hydroCHLOROthiazide (hydroCHLOROthiazide 25 mg oral tablet) 1 tab(s) Oral every day. potassium chloride (Potassium Chloride (Svt-Hfxd-Qvz 10) 10 mEq oral tablet, extended release) 1 tab(s) Oral every day. traZODone (traZODone 50 mg oral tablet) 1 tab(s) Oral once a day (at bedtime). Medications to Continue That Have Not Changed Other Medications acetaminophen-hydrocodone (!-Kendleton 5 mg-325 mg oral tablet) 1 tab(s) Oral Every 6 hours as needed as needed for pain. carvedilol (carvedilol 12.5 mg oral tablet) 1 tab(s) Oral 2 times a day. cyclobenzaprine (cyclobenzaprine 10 mg oral tablet) 1 tab(s) Oral At bedtime as needed for spasm. hydroCHLOROthiazide (hydroCHLOROthiazide 25 mg oral tablet) 1 tab(s) Oral every day. potassium chloride (Potassium Chloride (Otr-Zvok-Cke 10) 10 mEq oral tablet, extended release) [...] Restrictions: DISCHARGE INFORMATION Discharge Disposition: Discharge Location: [facility] REASON INCOMPLETE INFORMATION PATIENT EDUCATION INFORMATION Inst[facility] Follow up: DIAGNOSIS Internal derangement of left knee Comment: PHYS DOC [facility]06-16-2022 [facility] SURGERY Clinical Discharge Summary PERSON INFORMATION Name YASMIN JONES Age 50 Years 1970 Sex FEMALE Language Cambodian PCP RANDY CALLE Marital Status Med Service Ambulatory Surgery Acct# Arrival Visit Reason SURGERY - LEFT KNEE SCOPE Acuity LOS 010 03:19 Address: [address] [facility] [id number] Comment: PROVIDER INFORMATION VITALS INFORMATION Vital Sign [...] Oral every day. potassium chloride (Potassium Chloride (Oso-Akok-Zdy 10) 10 mEq oral tablet, extended release) 1 tab(s) Oral every day. traZODone (traZODone 50 mg oral tablet) 1 tab(s) Oral once a day (at bedtime). Medication List: Medications That Were Updated - Follow Below Instructions Other Medications Updated: potassium chloride (Potassium Chloride (Eno-Ostl-Dsb 10) 10 mEq oral tablet, extended release) [...] Other Medications Updated: potassium chloride (Potassium Chloride (Srh-Mjda-Lze 10) 10 mEq oral tablet, extended release) [...] Other Medications Updated: potassium chloride (Potassium Chloride (Smi-Geho-Aoa 10) 10 mEq oral tablet, extended release) [...] Restrictions: DISCHARGE INFORMATION Discharge Disposition: Discharge Location: [facility] REASON INCOMPLETE INFORMATION PATIENT EDUCATION INFORMATION Instructions: Follow up: With: Address: When: MYESHA ALISSON [address] [place], [place] [id number] Business (1) 09/03/2021 9:15 AM With: Address: When: [place] [address] Business (1) Type Location Start [facility] Lab Collection ([facility]) LAB 08/21/2021 4:00 PM 08/21/2021 4:10 PM Confirmed Surgery ([facility]) [facility] Main OR 08/26/2021 1:00 PM 08/26/2021 1:30 PM Confirmed DIAGNOSIS Comment: AGUSTIN [facility]11-24-2021 Note [id number] [id number] SUR[facility] Clinical Discharge Summary PERSON INFORMATION Name YASMIN JONES Age 50 Years 1970 Sex FEMALE Language Cambodian PCP RANDY CALLE Marital Status Med Service Ambulatory Surgery Acct# Arrival 01/21/2021 06:05:01 Visit Reason SURGERY - RIGHT KNEE ARTHROSCOPY Acuity LOS 032 23:00 Address: [address] [facility] [id number] Comment: PROVIDER INFORMATION VITALS INFORMATION Vital Sign [...] Restrictions: DISCHARGE INFORMATION Discharge Disposition: Discharge Location: [facility] REASON INCOMPLETE INFORMATION PATIENT EDUCATION INFORMATION Instructions: Reny- [facility] Follow up: With: Address: When: MYESHA VINSON [address] [place] [address], [address] [place] [address] Business (1) 01/30/2021 11:00 AM With: Address: When: [place] [address] Business (1) DIAGNOSIS Internal derangement of right knee; Tear of meniscus of right knee Comment: PHYS [facility]11-19-2021 NoteSpoke to pt on phone regarding upcoming procedure. pt aware to be here at 6am, NPO after midnight, and need for ride after procedure. pt verbalizes understanding. [Electronically Signed on: 01/18/2021 11:03 EST] Jen Khoury RN [Verified on: 01/18/2021 11:03 EST] Jen [facility]houry [facility] Plan note No data available for this section [facility] Evaluation + Plan note Future Appointments Appointment Date:04/10/2023 03:20:00 PM Scheduled Provider:Jackson WILLETT MD Location:[facility] Appointment Type:[facility] [address] [facility] noteNo assessment information available [facility] Work Phone: Evaluation note* Diagnosis Mammogram abnormal Abnormal mammogram, unspecified Invasive ductal carcinoma of breast, right (CMS/HCC) documented in this encounter [facility] HealthcareEvaluation note* Diagnosis Malignant neoplasm of lower-inner quadrant of right breast of female, estrogen receptor positive (CMS-HCC)- Primary Mass of lower inner quadrant of right breast Malignant neoplasm of lower-inner quadrant of right breast of female, estrogen receptor positive (CMS-HCC) documented [facility] N[facility]* The patient presents [...] medication regimen. She denies medication side effects. [facility] [address] DO Work Phone: Hospital Discharge instructions No data available for this section [facility] CenterInstructionsNot on filedocumented in this encounter [facility] Fall SystemInstructionsNot on filedocumented in this encounter [facility] Jump or Fall SystemProgress note No data available for this section [facility] Reason for referral (narrative)* Consultation (Routine) - Pending Review Specialty Diagnoses / Procedures Referred By Jose t Referred To Contact Radiation Oncology Diagnoses Malignant neoplasm of lower-inner quadrant of right breast of female, estrogen receptor positive (CMS-HCC) Christy He MD [address] [facility] [place] [address] Dany Diop MD [address] [place] [address] Referral ID Status Reason Start Date Expiration Date Visits Requested Visits Authorized [id number] Pending Review Specialty Services Required 04/28/2023 04/27/2024 1 1 * Diagnostic Imaging (Emergency) - Pending Review Specialty Diagnoses / Procedures Referred By Jose olmedo Referred To Contact Radiology Diagnoses Malignant neoplasm of lower-inner quadrant of right breast of female, estrogen receptor positive (CMS-HCC) Procedures MR bilateral breast with and without contrast with CAD Christy He MD [address] [facility] [facility] [address] [place] [address] Referral ID Status Reason Start Date Expiration Date V isits Requested Visits Authorized [id number] Pending Review 04/28/2023 04/27/2024 1 1 [facility] Purpose Family History No Family History [...] section and content) DATE CREATED AUTHOR 07/28/2021 [facility] dical Specialist DATE CREATED AUTHOR AUTHOR'S ORGANIZ ATION 09/22/2021 [facility] DATE CREATED AUTHOR AUTHOR'S ORGANIZ ATION 12/01/2021 [facility] DATE CREATED AUTHOR AUTHOR'S ORGANIZ ATION 01/04/2022 [facility] DATE CREATED AUTHOR AUTHOR'S ORGANIZ ATION 09/30/2022 [facility] DATE CREATED AUTHOR AUTHOR'S ORGANIZ ATION 10/01/2022 [facility] DATE CREATED AUTHOR AUTHOR'S ORGANIZ ATION 10/17/2022 [facility] DATE CREATED AUTHOR AUTHOR'S ORGANIZ ATION 04/13/2023 [facility] DATE CREATED AUTHOR AUTHOR'S ORGANIZ ATION 05/16/2023 [facility] DATE CREATED AUTHOR AUTHOR'S ORGANIZ ATION 06/02/2023 [facility] dical Specialists EPIC DATE CREATED AUTHOR AUTHOR'S ORGANIZ ATION 06/05/2023 [facility] DATE CREATED AUTHOR AUTHOR'S ORGANIZ ATION 08/14/2023 [facility] DATE CREATED AUTHOR AUTHOR'S ORGANIZ ATION 08/22/2023 [facility] DATE CREATED AUTHOR AUTHOR'S ORGANIZ ATION 09/01/2023 [facility] DATE CREATED AUTHOR AUTHOR'S ORGANIZ ATION 09/05/2023 [facility] REASON FOR VISIT (unrecogniz ed section and content) Reason Comments abnormal test results Discuss the result s of her abnormal mammogram results done @ [facility] Reason Comments Consult Newly dx Specialty Diagnoses / Procedures Referred By Jose olmedo Referred To Contact Breast Surgery Diagnoses Mass of lower inner quadrant of right breast Amy Collier, PROMOTIONS DIRECTOR-BED OPERATOR [address] [place] [address] Christy He MD [address] [place] [id number] Referral ID Status Reason Start Date Expiration Date V isits Requested Visits Authorized [id number] Pending Review 03/23/2023 03/22/2024 1 1 Patient Care team informatio n (unrecognized section and content) Team Status: Active Member Role Status Dates Randy Calle DO Primary Care Provider Active Team Status: Inactive Member Role Status Dates Randy Calle DO Primary Care Provider Active Start: March 26, 2023 End: March 26, 2023 GUY Khan HEALTH INFORMATION SPECIALIST-C Attending Provider Active Start: March 26, 2023 End: March 26, 2023 Plant Breeder Relationship Specialty Start Date End Date Randy Calle MD [address] [place] [address] PCP General Family Medicine 04/02/23 Plant Breeder Relationship Specialty Start Date End Date Amy Collier William, PROMOTIONS DIRECTORBOSTON HOME FOR INCURABLES [address] [place] [address] [facility] General 11/28/16 Plant Breeder Relationship Specialty Start Date End Date JacquesKevinAmy L, PROMOTIONS DIRECTOR-[facility] [address] [place] [address] [facility] 11/28/16 Plant Breeder Relationship Specialty Start Date End Date Kevin Colliermayte Thomas, PROMOTIONS DIRECTORBOSTON [facility] FOR INCURABLES [address] [place] [address] [facility] 11/28/16 Goals (unrecognized section and content) Goals may [...] BE BASED ON THE PRIMARY CLINICAL RECORDS. [facility] [employer] [facility]. provides no warranty or guarantee of the accuracy or completeness of information in this document.
== END 2023-09-18 11:45 | disposition home or self-care (01) ==
PROVIDERS: PCP Nurse Practitioner Family; Visit Provider Internal Medicine Interventional Cardiology
DX: R60.0 Localized edema (principal); I83.893 Varicose veins of bilateral lower extremities with other complications
CPT/HCPCS: 93970; G0463

== ENCOUNTER 2023-09-29 07:18 | Outpatient (RCR) | payer OTHER, SELFPAY ==
[2023-09-01 12:32] LABS: Hematocrit 26.6 % (36.0-48.0); Hemoglobin 9.1 g/dL (12.0-16.0); Mean Corpuscular HGB Conc 34.2 g/dL (29.9-35.2); Mean Corpuscular Hemoglobin 35.1 pg (26.7-34.0); Mean Corpuscular Volume 102.7 fL (81.0-99.0); Mean Platelet Volume 10.7 fL (9.5-13.5); Platelet Count 108 10^3/uL (150-450); Red Blood Count 2.59 10^6/uL (4.20-5.40); Red Cell Distribution Width 16.7 % (11.0-15.0)
[2023-09-01 12:59] LABS: Anisocytosis 1+; Band Neutrophils Absolute 0.5 10^3/uL (0.0-0.3); Basophils Abs Manual 0.13 10^3/uL (0.00-0.10); Hypochromasia 1+; Lymphocytes Absolute Manual 2.21 10^3/uL (1.20-3.80); Monocytes Absolute Manual 0.78 10^3/uL (0.30-0.80); Segmented Neut Absolute Manual 9.36 10^3/uL (1.4-6.5); Tear Drop Cells 1+
[2023-09-01] MEDS: EPOETIN ALFA-EPBX 20,000 UNIT/ML VIAL 40000 UNIT SUBQ (13:05)
--- NOTE | 2023-09-01 13:10 | PC.NURSE ---
3487 eating lunch, patient complains of sore throat, coming on past day or 2, will notify dr leonard
[2023-09-08 08:15] VITALS: BP 122/80; PULSE 85; TEMP 36.5; O2SAT 97
[2023-09-08 08:30] LABS: Basophils Absolute Auto 0.1 10^3/uL (0.0-0.1); Basophils Percent Auto 1.4 % (0.2-2.0); Eosinophils Absolute Auto 0.1 10^3/uL (0.0-0.7); Hematocrit 28.5 % (36.0-48.0); Hemoglobin 9.7 g/dL (12.0-16.0); Immature Granulocytes Abs Auto 0.07 10^3/uL (0.00-0.03); Immature Granulocytes Pct Auto 1.4 % (0.0-0.5); Lymphocytes Percent Auto 18.5 % (20.5-60.0); Mean Corpuscular Hemoglobin 34.8 pg (26.7-34.0); Mean Corpuscular Volume 102.2 fL (81.0-99.0); Mean Platelet Volume 9.5 fL (9.5-13.5); Monocytes Absolute Auto 0.7 10^3/uL (0.3-0.8); Monocytes Percent Auto 12.5 % (1.7-12.0); Neutrophils Absolute Auto 3.4 10^3/uL (1.4-6.5); Neutrophils Percent Auto 65.2 % (43.0-75.0); Platelet Count 246 10^3/uL (150-450); Red Blood Count 2.79 10^6/uL (4.20-5.40); Red Cell Distribution Width 15.8 % (11.0-15.0); White Blood Count 5.2 10^3/uL (4.0-11.0)
--- NOTE | 2023-09-08 08:37 | PC.NURSE ---
0815: Pt. to [facility] amb. accompanied by jovan. Weight obtained. Seated in recliner. VSS. Using sterile technique, left ant. chest port accessed per this RN. Flushes easily with good blood return. Blood obtained for ordered labs. Pt tolerated with minimal c/o. Dawson needle secured with Opsite. 0825: Dr. Hope to chairside for scheduled appointment.
[2023-09-08 08:51] LABS: Alanine Aminotransferase 34 U/L (14-59); Albumin Globulin Ratio 1.2; Albumin Level 3.4 g/dL (3.4-5.0); Alkaline Phosphatase 79 U/L (46-116); Anion Gap 13.1; Aspartate Amino Transferase 24 U/L (15-37); BUN Creatinine Ratio 13.3; Bilirubin Total 0.6 mg/dL (0.2-1.0); Calcium 8.8 mg/dL (8.5-10.1); Carbon Dioxide 29.9 mmol/L (21.0-32.0); Chloride 104 mmol/L (98-107); Estimated GFR (African America >60 (>=60); Estimated GFR (Non-African Ame >60 (>=60); Globulin 2.9 g/dL; Glucose 123 mg/dL (74-106); Magnesium 1.8 mg/dL (1.8-2.4); Sodium 144 mmol/L (136-145); Thyroid Stimulating Hormone 3.762 uIU/mL (0.358-3.740); Total Protein 6.3 g/dL (6.4-8.2)
[2023-09-08] MEDS: 0.9 % SODIUM CHLORIDE 250 ML 10 ML IV (09:14)
[2023-09-08] MEDS: BUMETANIDE 1 MG/4 ML VIAL IVP (09:14)
--- NOTE | 2023-09-08 09:41 | PC.NURSE ---
0914: Medicated with Bumex 1mg ivp as ordered. Breakfast tray provided.
[2023-09-08] MEDS: PALONOSETRON HCL 0.25 MG/5 ML VIAL IV (09:58)
[2023-09-08] MEDS: EPOETIN ALFA-EPBX 20,000 UNIT/ML VIAL 40000 UNIT SUBQ (09:58)
[2023-09-08] MEDS: DEXAMETHASONE SODIUM PHOSPHATE 8 MG in 0.9 % SODIUM CHLORIDE 100 ML 302.4 MG IV (10:07)
[2023-09-08] MEDS: POTASSIUM CHLORIDE 20 MEQ in 0.9 % SODIUM CHLORIDE 250 ML 130 MEQ IV (10:13)
--- NOTE | 2023-09-08 11:09 | PC.NURSE ---
0958: Pre-meds. initiated at this time. Pt. without c/o or needs. Up to bathroom to void.
--- NOTE | 2023-09-08 11:15 | PC.NURSE ---
1013: IV KCL 20meq initiated at this time as ordered. 1100: Pt. resting quietly with eyes closed. Resps even and non-labored. Appears to be without s&s of distress.
[2023-09-08] MEDS: PEMBROLIZUMAB 200 MG in 0.9 % SODIUM CHLORIDE 100 ML 216 MG IV (12:02)
--- NOTE | 2023-09-08 12:09 | PC.NURSE ---
1202: IV Keytruda initiated at this time. Pt. cont. to rest quietly with eyes closed. Port site clear without evidence of infiltration. Fiancee at chair side.
[2023-09-08] MEDS: DOXORUBICIN HCL 132 MG IVP (12:33)
[2023-09-08 12:45] VITALS: BP 134/88; PULSE 69; TEMP 36.4; O2SAT 100
[2023-09-08] MEDS: SODIUM CHLORIDE 0.9% IV (12:49)
[2023-09-08] MEDS: CYCLOPHOSPHAMIDE IV (12:49)
--- NOTE | 2023-09-08 13:38 | PC.NURSE ---
1245: Pt. tolerating treatment without c/o n/v, dyspnea or pain. VSS.
--- NOTE | 2023-09-08 13:42 | PC.NURSE ---
1338: Pt. relays slight nausea and stated taking home med. of Compazine, 10mg, po. Instructed pt. to notify this RN if nausea gets worse. Pt. relays understanding.
[2023-09-08 14:00] VITALS: BP 136/84; PULSE 65; TEMP 36.4; O2SAT 95
[2023-09-08] MEDS: PEGFILGRASTIM 6 MG/0.6 ML SQ (14:10)
[2023-09-08] MEDS: HEPARIN SODIUM (PORCINE) PF LOCK FLUSH 500 UNIT/5 ML SYRINGE IV (14:15)
--- NOTE | 2023-09-08 14:29 | PC.NURSE ---
1355: Pt. relays complete relief in nausea. Drinking Starry soda without c/o.
--- NOTE | 2023-09-08 14:32 | PC.NURSE ---
1400: Cyclophosphamide completed at this time without s&s of adverse reaction. Pt. tolerated all chemo infusions without c/o or evidence of adverse reaction. 1410: Neulasta injector applied to left upper arm after cleansing with alcohol and skin prep. Covered with large tegaderms x's 2. Pt. tolerated without c/o. Instruction given as to when device may be removed, pt. relays understanding. 1415: Port flushed with saline and Heparin flush. Port de-accessed. No bleeding to site. Covered with cotton ball prophylactically. 1418: Pt. d/c'd amb. to home with boyfriend.
[2023-09-15 11:45] VITALS: BP 121/74; PULSE 80; TEMP 36.8; O2SAT 96
[2023-09-15 12:12] LABS: Hematocrit 27.6 % (36.0-48.0); Hemoglobin 9.3 g/dL (12.0-16.0); Mean Corpuscular HGB Conc 33.7 g/dL (29.9-35.2); Mean Corpuscular Hemoglobin 33.9 pg (26.7-34.0); Mean Corpuscular Volume 100.7 fL (81.0-99.0); Mean Platelet Volume 9.8 fL (9.5-13.5); Platelet Count 124 10^3/uL (150-450); Red Blood Count 2.74 10^6/uL (4.20-5.40); Red Cell Distribution Width 15.1 % (11.0-15.0); White Blood Count 2.2 10^3/uL (4.0-11.0)
[2023-09-15 12:28] LABS: Anion Gap 11.4; BUN Creatinine Ratio 20.5; Carbon Dioxide 29.7 mmol/L (21.0-32.0); Chloride 102 mmol/L (98-107); Estimated GFR (African America >60 (>=60); Estimated GFR (Non-African Ame >60 (>=60); Glucose 97 mg/dL (74-106); Potassium 3.1 mmol/L (3.5-5.1); Sodium 140 mmol/L (136-145)
[2023-09-15] MEDS: EPOETIN ALFA-EPBX 20,000 UNIT/ML VIAL 40000 UNIT SUBQ (12:40)
[2023-09-15 12:47] LABS: Basophils Abs Manual 0.06 10^3/uL (0.00-0.10); Eosinophils Absolute Manual 0.04 10^3/uL (0.00-0.70); Lymphocytes Absolute Manual 0.79 10^3/uL (1.20-3.80); Monocytes Absolute Manual 0.06 10^3/uL (0.30-0.80); Segmented Neut Absolute Manual 1.23 10^3/uL (1.4-6.5)
[2023-09-15 12:48] LABS: Anisocytosis 1+; Macrocytosis 1+
--- NOTE | 2023-09-15 12:57 | PC.NURSE ---
1145: Pt. to [facility] for injection and lab draw. Weight obtained. Seated in recliner. VSS. Using sterile technique, left ant. chest port accessed per. this RN without difficulty. See documentation. Flushes easily and able to draw blood easily. Blood obtained for ordered labs. Pt. tolerated with min. c/o discomfort. Awaiting lab results before injection given. Pt. given lunch and water. Denies needs.
--- NOTE | 2023-09-15 13:28 | PC.NURSE ---
1240: Labs resulted. Hgb. 9.3. Medicated with Retacrit SQ as ordered to abd. See documentation. No bleeding to site. Pt. tolerated without c/o. Port a cath flushed with saline and Heparin flush, port de-accessed. No bleeding to site, 2x2 drsg. placed prophylactically. Pt. tolerated all without c/o. 1246: Pt. d/c'd amb. to home.
[2023-09-22 12:22] LABS: Hematocrit 27.3 % (36.0-48.0); Hemoglobin 9.2 g/dL (12.0-16.0); Mean Corpuscular HGB Conc 33.7 g/dL (29.9-35.2); Mean Corpuscular Hemoglobin 34.3 pg (26.7-34.0); Mean Corpuscular Volume 101.9 fL (81.0-99.0); Mean Platelet Volume 11.1 fL (9.5-13.5); Platelet Count 158 10^3/uL (150-450); Red Blood Count 2.68 10^6/uL (4.20-5.40); Red Cell Distribution Width 16.2 % (11.0-15.0); White Blood Count 8.1 10^3/uL (4.0-11.0)
[2023-09-22 12:45] LABS: Alanine Aminotransferase 24 U/L (14-59); Albumin Globulin Ratio 1.3; Albumin Level 3.6 g/dL (3.4-5.0); Alkaline Phosphatase 85 U/L (46-116); Aspartate Amino Transferase 15 U/L (15-37); BUN Creatinine Ratio 9.5; Bilirubin Total 0.6 mg/dL (0.2-1.0); Calcium 8.9 mg/dL (8.5-10.1); Chloride 101 mmol/L (98-107); Estimated GFR (African America >60 (>=60); Estimated GFR (Non-African Ame >60 (>=60); Globulin 2.8 g/dL; Glucose 90 mg/dL (74-106); Sodium 139 mmol/L (136-145); Total Protein 6.4 g/dL (6.4-8.2)
[2023-09-22 13:10] LABS: Band Neutrophils Absolute 0.2 10^3/uL (0.0-0.3); Basophils Abs Manual 0.08 10^3/uL (0.00-0.10); Eosinophils Absolute Manual 0.08 10^3/uL (0.00-0.70); Lymphocytes Absolute Manual 0.89 10^3/uL (1.20-3.80); Monocytes Absolute Manual 0.72 10^3/uL (0.30-0.80); Segmented Neut Absolute Manual 6.07 10^3/uL (1.4-6.5)
[2023-09-22 13:11] LABS: Anisocytosis 1+
[2023-09-25 08:15] VITALS: BP 124/83; PULSE 86; TEMP 36.4; O2SAT 96
[2023-09-25] MEDS: POTASSIUM CHLORIDE 20 MEQ in 0.9 % SODIUM CHLORIDE 250 ML 130 MEQ IV (08:26)
--- NOTE | 2023-09-25 08:51 | PC.NURSE ---
0815: Pt. to [facility] amb. for potassium infusion. Seated in recliner. VSS. Using sterile technique, left ant. chest port accessed without difficulty. See documentation. Port flushes easily and able to aspirate blood easily. Pt. tolerated with minimal c/o. IV potassium initiated at this time. Menu provided. Denies needs. 0825: Breakfast tray ordered.
[2023-09-25] MEDS: HEPARIN SODIUM (PORCINE) PF LOCK FLUSH 500 UNIT/5 ML SYRINGE IV (10:24)
--- NOTE | 2023-09-25 10:30 | PC.NURSE ---
0845: Pt. tolerating potassium without c/o. Denies needs.
--- NOTE | 2023-09-25 10:32 | PC.NURSE ---
1024: Potassium infusion completed without s&s of adverse reaction. Port flushed with saline and Heparin, port de-accessed. Covered with cotton ball for trace bleeding. Pt. tolerated without c/o. 1026: Pt. d/c'd amb. to home.
[2023-09-29 09:36] VITALS: BP 148/78; PULSE 95; TEMP 36.6; O2SAT 96
[2023-09-29 10:11] LABS: Basophils Absolute Auto 0.1 10^3/uL (0.0-0.1); Basophils Percent Auto 1.3 % (0.2-2.0); Eosinophils Absolute Auto 0.1 10^3/uL (0.0-0.7); Eosinophils Percent Auto 2.1 % (0.9-7.0); Hematocrit 28.7 % (36.0-48.0); Hemoglobin 9.7 g/dL (12.0-16.0); Immature Granulocytes Abs Auto 0.02 10^3/uL (0.00-0.03); Immature Granulocytes Pct Auto 0.5 % (0.0-0.5); Lymphocytes Absolute Auto 0.7 10^3/uL (1.2-3.8); Lymphocytes Percent Auto 18.9 % (20.5-60.0); Mean Corpuscular HGB Conc 33.8 g/dL (29.9-35.2); Mean Corpuscular Hemoglobin 33.9 pg (26.7-34.0); Mean Corpuscular Volume 100.3 fL (81.0-99.0); Mean Platelet Volume 9.5 fL (9.5-13.5); Monocytes Absolute Auto 0.7 10^3/uL (0.3-0.8); Monocytes Percent Auto 18.1 % (1.7-12.0); Neutrophils Absolute Auto 2.3 10^3/uL (1.4-6.5); Neutrophils Percent Auto 59.1 % (43.0-75.0); Platelet Count 251 10^3/uL (150-450); Red Blood Count 2.86 10^6/uL (4.20-5.40); Red Cell Distribution Width 14.9 % (11.0-15.0); White Blood Count 3.9 10^3/uL (4.0-11.0)
--- NOTE | 2023-09-29 10:19 | PC.NURSE ---
0936:[facility] by jovan. Weight obtained. Seated in recliner. VSS. Using sterile technique, left ant. chest port accessed without difficulty, see documentation. Able to aspirate blood easily for lab draw. Pt. tolerated with minimal c/o discomfort. N.S initiated at O. 1000: Dr. Hope to chairside for office visit.
[2023-09-29 10:26] LABS: Alanine Aminotransferase 35 U/L (14-59); Albumin Globulin Ratio 1.2; Albumin Level 3.5 g/dL (3.4-5.0); Alkaline Phosphatase 75 U/L (46-116); Anion Gap 9.8; Aspartate Amino Transferase 23 U/L (15-37); BUN Creatinine Ratio 18.8; Bilirubin Total 0.8 mg/dL (0.2-1.0); Calcium 9.2 mg/dL (8.5-10.1); Carbon Dioxide 28.4 mmol/L (21.0-32.0); Chloride 103 mmol/L (98-107); Estimated GFR (African America >60 (>=60); Estimated GFR (Non-African Ame >60 (>=60); Globulin 2.8 g/dL; Glucose 114 mg/dL (74-106); Potassium 3.2 mmol/L (3.5-5.1); Sodium 138 mmol/L (136-145); Total Protein 6.3 g/dL (6.4-8.2)
[2023-09-29] MEDS: 0.9 % SODIUM CHLORIDE 250 ML 10 ML IV (11:08)
[2023-09-29] MEDS: PALONOSETRON HCL 0.25 MG/5 ML VIAL IV (11:08)
[2023-09-29] MEDS: DEXAMETHASONE SODIUM PHOSPHATE 8 MG in 0.9 % SODIUM CHLORIDE 100 ML 302.4 MG IV (11:15)
[2023-09-29] MEDS: BUMETANIDE 1 MG/4 ML VIAL IVP (11:37)
[2023-09-29] MEDS: POTASSIUM CHLORIDE 20 MEQ in 0.9 % SODIUM CHLORIDE 250 ML 130 MEQ IV (11:44)
[2023-09-29] MEDS: PEMBROLIZUMAB 200 MG in 0.9 % SODIUM CHLORIDE 100 ML 216 MG IV (12:07)
[2023-09-29] MEDS: DOXORUBICIN HCL 132 MG IVP (12:37)
[2023-09-29 12:47] VITALS: BP 120/77; PULSE 96; TEMP 36.4; O2SAT 96
[2023-09-29] MEDS: SODIUM CHLORIDE 0.9% IV (12:58)
[2023-09-29] MEDS: CYCLOPHOSPHAMIDE IV (12:58)
--- NOTE | 2023-09-29 13:07 | PC.NURSE ---
1020: Breakfast tray provided. Denies needs. 1108: Pre-chemo meds initiated at this time. 1137: Medicated with Bumex 1mg ivp as ordered. Pt. without c/o. 1144: IV KCL 20meq initiated at this time foe K+ 3.2. 1207: Keytruda initiated as ordered. Pt. up to bathroom to void, gait steady. 1237: Keytruda completed without s&s of adverse reaction. IV Doxorubicin administered slow IVP checking blood return every 5cc. Pt. chewing ice during administration. Tolerates without adverse reaction VSS. 1258: Pt. up to bathroom to void. Denies c/o or needs. Cyclophosphamide infusing at this time. Lunch tray offered, pt. declines. Given warm blanket. Attempts to sleep.
--- NOTE | 2023-09-29 13:57 | PC.NURSE ---
1357: Tolerating infusion without c/o. Lunch provided. Ana Cristina at chairside.
[2023-09-29] MEDS: PEGFILGRASTIM 6 MG/0.6 ML SQ (14:19)
[2023-09-29] MEDS: HEPARIN SODIUM (PORCINE) PF LOCK FLUSH 500 UNIT/5 ML SYRINGE IV (14:20)
[2023-09-29 14:28] VITALS: BP 128/72; PULSE 78; TEMP 36.6; O2SAT 97
--- NOTE | 2023-09-29 14:33 | PC.NURSE ---
1405: Infusion completed without s&s of adverse reaction. VSS. 1419: Neulasta Onpro device applied to left upper arm after site cleansed with alcohol and skin prep. Coban dressing wrapped around arm and device to secure in place. Pt. tolerated all without c/o or adverse reaction. 1428: Port flushed with saline and heparin flush, port de-accessed. Trace bleeding to site. Covered with cotton, secured with tape. Pt. d/c'd amb to home with jovan.
== END 2023-09-30 23:59 | disposition home or self-care (01) ==
LOC: HEMC 07:18
PROVIDERS: PCP Nurse Practitioner Family; Visit Provider Internal Medicine Hematology & Oncology
DX: Z51.11 Encounter for antineoplastic chemotherapy (principal); C50.311 Malignant neoplasm of lower-inner quadrant of right female breast; D70.1 Agranulocytosis secondary to cancer chemotherapy; Z79.818 Long term (current) use of other agents affecting estrogen receptors and estrogen levels; Z79.899 Other long term (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 therapy; D64.81 Anemia due to antineoplastic chemotherapy; C77.3 Secondary and unspecified malignant neoplasm of axilla and upper limb lymph nodes; Z90.710 Acquired absence of both cervix and uterus; I10 Essential (primary) hypertension
CPT/HCPCS: 36415; 36591; 80048; 80053; 83735; 84443; 85007; 85025; 85027; 86300; 96365; 96366; 96367; 96368; 96372; 96375; 96377; 96411; 96413; 96417; G0463; J1100; J1453; J1642; J2469; J2506; J3480; J9000; J9073; J9271; Q5106

== ENCOUNTER 2023-10-26 08:30 | Outpatient (RCR) | payer OTHER, SELFPAY ==
[2023-10-13 08:37] LABS: Mean Corpuscular HGB Conc 35.2 g/dL (29.9-35.2); Mean Corpuscular Volume 96.6 fL (81.0-99.0); Mean Platelet Volume 10.3 fL (9.5-13.5); Platelet Count 104 10^3/uL (150-450); Red Blood Count 2.35 10^6/uL (4.20-5.40); Red Cell Distribution Width 14.1 % (11.0-15.0); White Blood Count 4.4 10^3/uL (4.0-11.0)
--- NOTE | 2023-10-13 08:43 | PC.NURSE ---
0828: Using sterile technique, left ant. chest port accessed per this RN without difficulty. Flushes easily, able to aspirate blood easily. Blood specimen obtained and sent to lab. Port remains accessed until M.D. visit completed with Dr. Hope. Pt. tolerated without c/o.
[2023-10-13 08:44] LABS: Hematocrit 22.7 % (36.0-48.0)
[2023-10-13 08:57] LABS: Alanine Aminotransferase 24 U/L (14-59); Albumin Globulin Ratio 1.3; Albumin Level 3.4 g/dL (3.4-5.0); Alkaline Phosphatase 74 U/L (46-116); Anion Gap 9.6; Aspartate Amino Transferase 14 U/L (15-37); BUN Creatinine Ratio 11.8; Bilirubin Total 0.5 mg/dL (0.2-1.0); Calcium 9.1 mg/dL (8.5-10.1); Carbon Dioxide 31.2 mmol/L (21.0-32.0); Chloride 103 mmol/L (98-107); Estimated GFR (African America >60 (>=60); Estimated GFR (Non-African Ame >60 (>=60); Globulin 2.6 g/dL; Glucose 129 mg/dL (74-106); Sodium 141 mmol/L (136-145)
[2023-10-13 09:00] LABS: Potassium 2.8 mmol/L (3.5-5.1)
[2023-10-13 09:08] LABS: Anisocytosis 2+; Lymphocytes Absolute Manual 0.92 10^3/uL (1.20-3.80); Monocytes Absolute Manual 0.44 10^3/uL (0.30-0.80); Polychromasia 1+; Segmented Neut Absolute Manual 3.03 10^3/uL (1.4-6.5)
[2023-10-16 08:05] VITALS: BP 128/79; PULSE 89; TEMP 36.7; O2SAT 95
[2023-10-16] MEDS: POTASSIUM CHLORIDE 20 MEQ in 0.9 % SODIUM CHLORIDE 250 ML 130 MEQ IV (08:09)
--- NOTE | 2023-10-16 08:38 | PC.NURSE ---
0805: Pt. to [facility] amb. accompanied by jovan. Seated in recliner. VSS. Using sterile technique, left ant. chest port accessed without difficulty. Flushes easily and able to aspirate blood easily. Pt. tolerates with min. c/o discomfort. IV KCL initiated at this time. Pt. declines food, given water and warm blanket. 0840: Tolerating KCL infusion without c/o. Denies needs.
--- NOTE | 2023-10-16 09:49 | PC.NURSE ---
0946: IV KCL infusion completed without s&s of adverse reaction. Port remains accessed due to pre-admission testing to be done today. Port flushed with saline and to SLF. Line clamped, green cap applied. Pt. tolerated with no c/o. D/c'd amb. to home with jovan.
[2023-10-23 09:35] VITALS: BP 127/75; PULSE 92; TEMP 36.9; O2SAT 99
[2023-10-23] MEDS: POTASSIUM CHLORIDE 20 MEQ in 0.9 % SODIUM CHLORIDE 250 ML 130 MEQ IV (09:53)
[2023-10-26 15:20] LABS: Basophils Absolute Auto 0.1 10^3/uL (0.0-0.1); Basophils Percent Auto 1.4 % (0.2-2.0); Eosinophils Absolute Auto 0.2 10^3/uL (0.0-0.7); Eosinophils Percent Auto 4.1 % (0.9-7.0); Hematocrit 25.9 % (36.0-48.0); Immature Granulocytes Abs Auto 0.02 10^3/uL (0.00-0.03); Immature Granulocytes Pct Auto 0.4 % (0.0-0.5); Lymphocytes Absolute Auto 1.1 10^3/uL (1.2-3.8); Lymphocytes Percent Auto 19.6 % (20.5-60.0); Mean Corpuscular HGB Conc 34.7 g/dL (29.9-35.2); Mean Corpuscular Volume 97.7 fL (81.0-99.0); Mean Platelet Volume 9.1 fL (9.5-13.5); Monocytes Absolute Auto 0.8 10^3/uL (0.3-0.8); Monocytes Percent Auto 14.7 % (1.7-12.0); Neutrophils Absolute Auto 3.3 10^3/uL (1.4-6.5); Neutrophils Percent Auto 59.8 % (43.0-75.0); Platelet Count 310 10^3/uL (150-450); Red Blood Count 2.65 10^6/uL (4.20-5.40); Red Cell Distribution Width 14.4 % (11.0-15.0); White Blood Count 5.6 10^3/uL (4.0-11.0)
[2023-10-26 15:36] LABS: Alanine Aminotransferase 45 U/L (14-59); Albumin Globulin Ratio 1.3; Albumin Level 3.8 g/dL (3.4-5.0); Alkaline Phosphatase 75 U/L (46-116); Anion Gap 12.9; Aspartate Amino Transferase 34 U/L (15-37); BUN Creatinine Ratio 15.4; Carbon Dioxide 29.1 mmol/L (21.0-32.0); Chloride 99 mmol/L (98-107); Estimated GFR (African America >60 (>=60); Estimated GFR (Non-African Ame 55 (>=60); Glucose 85 mg/dL (74-106); Magnesium 1.5 mg/dL (1.8-2.4); Sodium 138 mmol/L (136-145); Total Protein 6.8 g/dL (6.4-8.2)
== END 2023-10-31 23:59 | disposition home or self-care (01) ==
LOC: HEMC 08:30
PROVIDERS: PCP Nurse Practitioner Family; Visit Provider Internal Medicine Hematology & Oncology
DX: C50.311 Malignant neoplasm of lower-inner quadrant of right female breast (principal); Z79.899 Other long term (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 therapy; D70.1 Agranulocytosis secondary to cancer chemotherapy; R11.2 Nausea with vomiting, unspecified; C77.9 Secondary and unspecified malignant neoplasm of lymph node, unspecified; Z15.09 Genetic susceptibility to other malignant neoplasm; Z79.818 Long term (current) use of other agents affecting estrogen receptors and estrogen levels; D64.81 Anemia due to antineoplastic chemotherapy; C77.3 Secondary and unspecified malignant neoplasm of axilla and upper limb lymph nodes; Z90.710 Acquired absence of both cervix and uterus; Z17.0 Estrogen receptor positive status [ER+]; I10 Essential (primary) hypertension
CPT/HCPCS: 36430; 36591; 78815; 80053; 83735; 85007; 85025; 85027; 96365; 96366; A9552; G0463; J3480

== ENCOUNTER 2023-10-26 15:13 | Outpatient (OUT) | payer OTHER, SELFPAY | END 2023-10-26 15:14 | disposition home or self-care (01) | LOC: PETCT 15:13 | PROVIDERS: PCP Nurse Practitioner Family; Visit Provider Internal Medicine Hematology & Oncology | DX: C50.311 Malignant neoplasm of lower-inner quadrant of right female breast (principal); Z79.899 Other long term (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 therapy; D70.1 Agranulocytosis secondary to cancer chemotherapy; R11.2 Nausea with vomiting, unspecified; C77.9 Secondary and unspecified malignant neoplasm of lymph node, unspecified; Z15.09 Genetic susceptibility to other malignant neoplasm; Z79.818 Long term (current) use of other agents affecting estrogen receptors and estrogen levels; D64.81 Anemia due to antineoplastic chemotherapy; C77.3 Secondary and unspecified malignant neoplasm of axilla and upper limb lymph nodes | CPT/HCPCS: 78815; A9552 ==

== ENCOUNTER 2023-11-12 07:51 | Outpatient (RCR) | payer OTHER, SELFPAY ==
[2023-11-12 13:30] LABS: Basophils Absolute Auto 0.1 10^3/uL (0.0-0.1); Basophils Percent Auto 0.7 % (0.2-2.0); Eosinophils Absolute Auto 1.2 10^3/uL (0.0-0.7); Eosinophils Percent Auto 16.8 % (0.9-7.0); Hemoglobin 9.2 g/dL (12.0-16.0); Immature Granulocytes Abs Auto 0.03 10^3/uL (0.00-0.03); Immature Granulocytes Pct Auto 0.4 % (0.0-0.5); Lymphocytes Absolute Auto 1.1 10^3/uL (1.2-3.8); Lymphocytes Percent Auto 14.9 % (20.5-60.0); Mean Corpuscular HGB Conc 34.1 g/dL (29.9-35.2); Mean Corpuscular Hemoglobin 32.6 pg (26.7-34.0); Mean Corpuscular Volume 95.7 fL (81.0-99.0); Monocytes Absolute Auto 0.4 10^3/uL (0.3-0.8); Monocytes Percent Auto 5.3 % (1.7-12.0); Neutrophils Absolute Auto 4.6 10^3/uL (1.4-6.5); Neutrophils Percent Auto 61.9 % (43.0-75.0); Platelet Count 301 10^3/uL (150-450); Red Blood Count 2.82 10^6/uL (4.20-5.40); Red Cell Distribution Width 12.5 % (11.0-15.0); White Blood Count 7.3 10^3/uL (4.0-11.0)
[2023-11-12 13:48] LABS: Alanine Aminotransferase 25 U/L (14-59); Albumin Level 3.2 g/dL (3.4-5.0); Alkaline Phosphatase 78 U/L (46-116); Anion Gap 6.2; Aspartate Amino Transferase 22 U/L (15-37); BUN Creatinine Ratio 16.8; Bilirubin Total 0.6 mg/dL (0.2-1.0); Calcium 9.2 mg/dL (8.5-10.1); Carbon Dioxide 32.9 mmol/L (21.0-32.0); Chloride 103 mmol/L (98-107); Estimated GFR (African America >60 (>=60); Estimated GFR (Non-African Ame >60 (>=60); Globulin 3.2 g/dL; Glucose 112 mg/dL (74-106); Magnesium 1.5 mg/dL (1.8-2.4); Potassium 3.1 mmol/L (3.5-5.1); Sodium 139 mmol/L (136-145); Total Protein 6.4 g/dL (6.4-8.2)
== END 2023-11-30 23:59 | disposition home or self-care (01) ==
LOC: HEMC 07:51
PROVIDERS: PCP Nurse Practitioner Family; Visit Provider Internal Medicine Hematology & Oncology
DX: C50.311 Malignant neoplasm of lower-inner quadrant of right female breast (principal); Z79.899 Other long term (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 therapy; D70.1 Agranulocytosis secondary to cancer chemotherapy; R11.2 Nausea with vomiting, unspecified; Z79.818 Long term (current) use of other agents affecting estrogen receptors and estrogen levels; D64.81 Anemia due to antineoplastic chemotherapy; C77.3 Secondary and unspecified malignant neoplasm of axilla and upper limb lymph nodes
CPT/HCPCS: 80053; 83735; 85025; 86300

== ENCOUNTER 2023-12-09 07:33 | Outpatient (RCR) | payer OTHER, SELFPAY ==
[2023-12-02 08:33] VITALS: BP 122/84; PULSE 95; TEMP 36.3; O2SAT 96
[2023-12-02 09:08] LABS: Platelet Count 293 10^3/uL (150-450); White Blood Count 7.8 10^3/uL (4.0-11.0)
--- NOTE | 2023-12-02 09:09 | PC.NURSE ---
Addendum entered by John Gerber 12/02/23 09:16: Port-a-cath. to left chest, not right. Site without s&s of infection or infiltration. Original Note: 0833: Pt. to [facility] amb. for blood draw from port-a-cath. Right chest port already accessed. Flushes easily with good blood return. Blood obtained for ordered labs without difficulty. Flushed with saline. VSS. Pt. without c/o or needs. 0846: Pt. d/c'd amb to home.
[2023-12-02 10:27] LABS: Alanine Aminotransferase 20 U/L (14-59); Albumin Globulin Ratio 1.2; Albumin Level 3.3 g/dL (3.4-5.0); Alkaline Phosphatase 87 U/L (46-116); Aspartate Amino Transferase 18 U/L (15-37); Bilirubin Direct 0.1 mg/dL (0.0-0.2); Bilirubin Total 0.7 mg/dL (0.2-1.0); Estimated GFR (African America 24 (>=60 mL/min/1.73m^2); Estimated GFR (Non-African Ame 20 (>=60 mL/min/1.73m^2); Globulin 2.8 g/dL; Total Protein 6.1 g/dL (6.4-8.2)
[2023-12-02 11:06] LABS: Vancomycin Trough 33.5 ug/mL (5.0-20.0)
[2023-12-10 11:54] LABS: Platelet Count 225 10^3/uL (150-450); White Blood Count 14.1 10^3/uL (4.0-11.0)
[2023-12-10 12:07] LABS: Alanine Aminotransferase 42 U/L (14-59); Albumin Globulin Ratio 0.8; Albumin Level 2.8 g/dL (3.4-5.0); Alkaline Phosphatase 99 U/L (46-116); Aspartate Amino Transferase 27 U/L (15-37); Bilirubin Direct 0.1 mg/dL (0.0-0.2); Bilirubin Total 0.4 mg/dL (0.2-1.0); Estimated GFR (African America 44 (>=60 mL/min/1.73m^2); Estimated GFR (Non-African Ame 36 (>=60 mL/min/1.73m^2); Globulin 3.4 g/dL; Total Protein 6.2 g/dL (6.4-8.2)
[2023-12-17 11:42] LABS: Platelet Count 280 10^3/uL (150-450); White Blood Count 5.4 10^3/uL (4.0-11.0)
[2023-12-17 12:10] LABS: Alanine Aminotransferase 36 U/L (14-59); Albumin Globulin Ratio 0.9; Alkaline Phosphatase 88 U/L (46-116); Aspartate Amino Transferase 25 U/L (15-37); Bilirubin Direct 0.2 mg/dL (0.0-0.2); Bilirubin Total 1.1 mg/dL (0.2-1.0); Estimated GFR (African America 55 (>=60 mL/min/1.73m^2); Estimated GFR (Non-African Ame 45 (>=60 mL/min/1.73m^2); Globulin 3.4 g/dL; Total Protein 6.4 g/dL (6.4-8.2)
[2023-12-24 12:26] LABS: Platelet Count 163 10^3/uL (150-450); White Blood Count 4.3 10^3/uL (4.0-11.0)
[2023-12-24 12:32] LABS: Alanine Aminotransferase 33 U/L (14-59); Albumin Level 3.4 g/dL (3.4-5.0); Alkaline Phosphatase 94 U/L (46-116); Aspartate Amino Transferase 26 U/L (15-37); Bilirubin Direct 0.2 mg/dL (0.0-0.2); Bilirubin Total 1.2 mg/dL (0.2-1.0); Estimated GFR (African America 57 (>=60 mL/min/1.73m^2); Estimated GFR (Non-African Ame 47 (>=60 mL/min/1.73m^2); Globulin 3.4 g/dL; Total Protein 6.8 g/dL (6.4-8.2)
[2023-12-31 13:39] LABS: Platelet Count 164 10^3/uL (150-450); White Blood Count 5.6 10^3/uL (4.0-11.0)
[2023-12-31 13:55] LABS: Alanine Aminotransferase 31 U/L (14-59); Albumin Globulin Ratio 1.1; Albumin Level 3.3 g/dL (3.4-5.0); Alkaline Phosphatase 92 U/L (46-116); Aspartate Amino Transferase 24 U/L (15-37); Bilirubin Direct 0.2 mg/dL (0.0-0.2); Bilirubin Total 0.8 mg/dL (0.2-1.0); Estimated GFR (African America >60 (>=60 mL/min/1.73m^2); Estimated GFR (Non-African Ame >60 (>=60 mL/min/1.73m^2); Globulin 3.1 g/dL; Total Protein 6.4 g/dL (6.4-8.2)
== END 2023-12-31 23:59 | disposition home or self-care (01) ==
LOC: HEMC 07:33
PROVIDERS: PCP Nurse Practitioner Family
DX: C50.311 Malignant neoplasm of lower-inner quadrant of right female breast (principal); N61.0 Mastitis without abscess; Z90.710 Acquired absence of both cervix and uterus; Z17.0 Estrogen receptor positive status [ER+]; Z79.899 Other long term (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 therapy; R11.2 Nausea with vomiting, unspecified; D70.1 Agranulocytosis secondary to cancer chemotherapy; D64.81 Anemia due to antineoplastic chemotherapy; C77.3 Secondary and unspecified malignant neoplasm of axilla and upper limb lymph nodes; I10 Essential (primary) hypertension; Z90.13 Acquired absence of bilateral breasts and nipples
CPT/HCPCS: 36415; 36591; 80076; 80202; 82565; 85048; 85049; G0463

== ENCOUNTER 2024-01-05 14:01 | Outpatient (RCR) | payer OTHER, SELFPAY ==
[2024-01-05 10:17] LABS: Platelet Count 168 10^3/uL (150-450); White Blood Count 2.6 10^3/uL (4.0-11.0)
[2024-01-05 11:12] LABS: Alanine Aminotransferase 50 U/L (14-59); Albumin Globulin Ratio 1.1; Albumin Level 3.4 g/dL (3.4-5.0); Alkaline Phosphatase 83 U/L (46-116); Aspartate Amino Transferase 36 U/L (15-37); Bilirubin Direct 0.2 mg/dL (0.0-0.2); Estimated GFR (African America >60 (>=60 mL/min/1.73m^2); Estimated GFR (Non-African Ame 53 (>=60 mL/min/1.73m^2); Globulin 3.2 g/dL; Total Protein 6.6 g/dL (6.4-8.2)
[2024-01-14 17:01] LABS: Platelet Count 181 10^3/uL (150-450); White Blood Count 3.8 10^3/uL (4.0-11.0)
[2024-01-14 17:19] LABS: Alanine Aminotransferase 126 U/L (14-59); Albumin Globulin Ratio 1.2; Albumin Level 3.6 g/dL (3.4-5.0); Alkaline Phosphatase 91 U/L (46-116); Aspartate Amino Transferase 84 U/L (15-37); Bilirubin Direct 0.2 mg/dL (0.0-0.2); Bilirubin Total 0.8 mg/dL (0.2-1.0); Estimated GFR (African America >60 (>=60 mL/min/1.73m^2); Estimated GFR (Non-African Ame 51 (>=60 mL/min/1.73m^2); Total Protein 6.6 g/dL (6.4-8.2)
[2024-01-21 13:46] LABS: Alanine Aminotransferase 126 U/L (14-59); Albumin Globulin Ratio 1.2; Albumin Level 3.5 g/dL (3.4-5.0); Alkaline Phosphatase 96 U/L (46-116); Aspartate Amino Transferase 76 U/L (15-37); Bilirubin Direct 0.2 mg/dL (0.0-0.2); Bilirubin Total 0.9 mg/dL (0.2-1.0); Globulin 2.8 g/dL; Total Protein 6.3 g/dL (6.4-8.2)
[2024-01-27 12:18] LABS: Platelet Count 145 10^3/uL (150-450); White Blood Count 2.9 10^3/uL (4.0-11.0)
[2024-01-27 12:38] LABS: Alanine Aminotransferase 105 U/L (14-59); Albumin Globulin Ratio 1.3; Albumin Level 3.6 g/dL (3.4-5.0); Alkaline Phosphatase 91 U/L (46-116); Aspartate Amino Transferase 58 U/L (15-37); Bilirubin Direct 0.2 mg/dL (0.0-0.2); Bilirubin Total 1.3 mg/dL (0.2-1.0); Estimated GFR (African America >60 (>=60 mL/min/1.73m^2); Estimated GFR (Non-African Ame >60 (>=60 mL/min/1.73m^2); Globulin 2.8 g/dL; Total Protein 6.4 g/dL (6.4-8.2)
== END 2024-01-27 12:52 | disposition home or self-care (01) ==
LOC: INF 14:01
PROVIDERS: PCP Nurse Practitioner Family
DX: N61.0 Mastitis without abscess (principal); C50.311 Malignant neoplasm of lower-inner quadrant of right female breast; Z79.899 Other long term (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 therapy; Z51.81 Encounter for therapeutic drug level monitoring
CPT/HCPCS: 36415; 36591; 80053; 80076; 82565; 85025; 85048; 85049; 93005; 96372; G0463; J1954

== ENCOUNTER 2024-01-15 15:52 | Outpatient (OUT) | payer OTHER, SELFPAY ==
[2024-01-15 16:14] LABS: Basophils Percent Auto 0.6 % (0.2-2.0); Eosinophils Absolute Auto 0.3 10^3/uL (0.0-0.7); Eosinophils Percent Auto 9.1 % (0.9-7.0); Hematocrit 27.4 % (36.0-48.0); Hemoglobin 9.3 g/dL (12.0-16.0); Immature Granulocytes Abs Auto 0.01 10^3/uL (0.00-0.03); Immature Granulocytes Pct Auto 0.3 % (0.0-0.5); Lymphocytes Absolute Auto 0.9 10^3/uL (1.2-3.8); Lymphocytes Percent Auto 25.1 % (20.5-60.0); Mean Corpuscular HGB Conc 33.9 g/dL (29.9-35.2); Mean Corpuscular Hemoglobin 30.7 pg (26.7-34.0); Mean Corpuscular Volume 90.4 fL (81.0-99.0); Mean Platelet Volume 8.9 fL (9.5-13.5); Monocytes Absolute Auto 0.6 10^3/uL (0.3-0.8); Neutrophils Absolute Auto 1.6 10^3/uL (1.4-6.5); Neutrophils Percent Auto 46.9 % (43.0-75.0); Platelet Count 167 10^3/uL (150-450); Red Blood Count 3.03 10^6/uL (4.20-5.40); Red Cell Distribution Width 17.5 % (11.0-15.0); White Blood Count 3.5 10^3/uL (4.0-11.0)
--- NOTE | 2024-01-15 16:24 | PC.NURSE ---
1600 Called to lab to draw from Port. Patient port is currently accessed. flushed with ns, excellent blood return. withdrew and wasted 10 ml. labs drawn, port flushed with 20 ml of ns, port left accessed due to patient taking IV antibiotics at home. tolerated procedure well. released ambulatory
[2024-01-15 16:49] LABS: Magnesium 1.8 mg/dL (1.8-2.4)
== END 2024-01-15 15:53 | disposition home or self-care (01) ==
LOC: LAB 15:53
PROVIDERS: PCP Nurse Practitioner Family
DX: Z51.81 Encounter for therapeutic drug level monitoring (principal)
CPT/HCPCS: 36591; 83735; 85025

== ENCOUNTER 2024-01-27 07:40 | Outpatient (RCR) | payer OTHER, SELFPAY ==
--- NOTE | 2024-01-05 16:14 | PC.NURSE ---
1000: Pt. to Dr. Gregory office for MD visit. Left ant. chest port already accessed due to receiving IV antibiotics at home. Site without s&s of infection or infiltration. Flushes easily with good blood return. Labs obtained. Port flushed with saline. Pt. tolerated without c/o.
--- NOTE | 2024-01-07 12:18 | PC.NURSE ---
1200: Pt. to [facility] amb. for Dawson needle change to port a cath. Seated in recliner. Existing Dawson needle in place, flushed with saline, and de-accessed. Site without s&s of infection or infiltration. Using sterile technique, left ant. chest port re-accessed using 20G Dawson 3/4 . Flushes easily with good blood return. New sterile dressing applied and secured over Dawson needle. Flushed with saline only due to antibiotic therapy performed at home BID per. patient. Pt. tolerated all without c/o. 1210: D/c'd amb. to home.
[2024-01-14 16:04] VITALS: BP 136/84; PULSE 95; TEMP 36.5; O2SAT 98
[2024-01-14] MEDS: LEUPROLIDE ACETATE 22.5 MG IM (16:19)
--- NOTE | 2024-01-14 16:36 | PC.NURSE ---
Pt here for lab draw, lemus needle change and Lutrate injection. All complete without incident. Pt d/c'd stable.
[2024-01-21 13:27] LABS: Eosinophils Absolute Auto 0.3 10^3/uL (0.0-0.7); Eosinophils Percent Auto 8.5 % (0.9-7.0); Hematocrit 27.7 % (36.0-48.0); Hemoglobin 9.4 g/dL (12.0-16.0); Immature Granulocytes Abs Auto 0.01 10^3/uL (0.00-0.03); Immature Granulocytes Pct Auto 0.3 % (0.0-0.5); Lymphocytes Absolute Auto 0.7 10^3/uL (1.2-3.8); Lymphocytes Percent Auto 22.5 % (20.5-60.0); Mean Corpuscular HGB Conc 33.9 g/dL (29.9-35.2); Mean Corpuscular Hemoglobin 30.6 pg (26.7-34.0); Mean Corpuscular Volume 90.2 fL (81.0-99.0); Mean Platelet Volume 9.1 fL (9.5-13.5); Monocytes Absolute Auto 0.5 10^3/uL (0.3-0.8); Monocytes Percent Auto 14.7 % (1.7-12.0); Neutrophils Absolute Auto 1.6 10^3/uL (1.4-6.5); Platelet Count 176 10^3/uL (150-450); Red Blood Count 3.07 10^6/uL (4.20-5.40); Red Cell Distribution Width 17.4 % (11.0-15.0); White Blood Count 3.1 10^3/uL (4.0-11.0)
[2024-01-21 13:46] LABS: Alanine Aminotransferase 122 U/L (14-59); Albumin Globulin Ratio 1.3; Albumin Level 3.5 g/dL (3.4-5.0); Alkaline Phosphatase 96 U/L (46-116); Anion Gap 17.4; Aspartate Amino Transferase 76 U/L (15-37); BUN Creatinine Ratio 13.2; Bilirubin Total 0.9 mg/dL (0.2-1.0); Calcium 9.3 mg/dL (8.5-10.1); Carbon Dioxide 24.8 mmol/L (21.0-32.0); Chloride 105 mmol/L (98-107); Estimated GFR (African America >60 (>=60 mL/min/1.73m^2); Estimated GFR (Non-African Ame >60 (>=60 mL/min/1.73m^2); Globulin 2.7 g/dL; Glucose 110 mg/dL (74-106); Potassium 3.2 mmol/L (3.5-5.1); Sodium 144 mmol/L (136-145); Total Protein 6.2 g/dL (6.4-8.2)
--- NOTE | 2024-01-21 13:52 | PC.NURSE ---
1220: Pt. to [facility] amb. for blood draw and Dawson needle change. Seated in recliner. Blood drawn from left ant. chest port for ordered labs. Port flushed with saline and de-accessed. Using sterile technique, port accessed with new sterile Dawson needle. Flushed easily and able to aspirate blood easily. Secured with Opsite dressing. Pt. tolerated without c/o. Flushed with saline only per. pt. request. 1235: Pt. d/c'd amb. to home.
--- NOTE | 2024-01-27 12:16 | PC.NURSE ---
Pt here for port draw and lemus needle /drsg change. Tolerated w/o incident. Pt d/c'd stable.
== END 2024-01-27 12:51 | disposition home or self-care (01) ==
LOC: HEMC 07:40
PROVIDERS: PCP Nurse Practitioner Family; Visit Provider Internal Medicine Hematology & Oncology
DX: C50.311 Malignant neoplasm of lower-inner quadrant of right female breast (principal); Z79.899 Other long term (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 therapy; D70.1 Agranulocytosis secondary to cancer chemotherapy; R11.2 Nausea with vomiting, unspecified; C77.9 Secondary and unspecified malignant neoplasm of lymph node, unspecified; Z79.818 Long term (current) use of other agents affecting estrogen receptors and estrogen levels; D64.81 Anemia due to antineoplastic chemotherapy; C77.3 Secondary and unspecified malignant neoplasm of axilla and upper limb lymph nodes; Z90.710 Acquired absence of both cervix and uterus; Z90.13 Acquired absence of bilateral breasts and nipples; Z17.0 Estrogen receptor positive status [ER+]; I10 Essential (primary) hypertension
CPT/HCPCS: 36415; 36591; 36592; 80053; 80076; 82565; 85025; 85048; 85049; 96372; G0463; J1954

== ENCOUNTER 2024-01-27 12:07 | Outpatient (OUT) | payer OTHER, SELFPAY ==
--- NOTE | 2024-01-27 12:30 | ECG_ITS ---
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
== END 2024-01-27 12:08 | disposition home or self-care (01) ==
LOC: CARD 12:07
PROVIDERS: PCP Nurse Practitioner Family
DX: Z79.899 Other long term (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 therapy (principal); Z51.81 Encounter for therapeutic drug level monitoring
CPT/HCPCS: 93005

== ENCOUNTER 2024-02-04 07:42 | Outpatient (RCR) | payer OTHER, SELFPAY ==
--- OUTSIDE RECORDS SUMMARY | 2024-02-04 07:47 | XMS_ITS | CCD ---
Author Organization [facility] Care Team Providers Care Shoe Handler Name Role Phone Jesusita Gee Unavailable RANDY CALLE Primary Care Unavailable Reny, Hua Kraus Admitting Unavail able Reny, Hua Kraus Attending Unavail able Hua Oglesby Admitting Unavail able RANDY CALLE Primary Care Unavailable Buhler, Hua Kraus Attending Unavail able RANDY CALLE Primary Care Unavailable Paco Giraldo Attending Unavailable RANDY CALLE Primary Care Unavailable Buhler, Hua Kraus Admitting Unavail able RANDY CALLE Consulting Unavailable Buhler, Hua Kraus Attending Unavail able Reny, Hua Kraus Admitting Unavail able RANDY CALLE Primary Care Unavailable Hiral Small Consulting Unavailable Reny, Hua Kraus Attending Unavail able RANDY CALLE Primary Care Unavailable Buhler, Hua Kraus Admitting Unavail able Reny, Hua Kraus Attending Unavail able Buhler, Hua Kraus Admitting Unavail able RANDY CALLE Primary Care Unavailable Buhler, Hua Kraus Attending Unavail able KRYSTEN, DR ANNE Admitting Unavailable KRYSTEN, DR ANNE Attending Unavailable ALVA, DR RANDY Mckee Primary Care Unavailable KRYSTEN, DR ANNE Consulting Unavailable MILKA, DR KAYE Reynoso Admitting Unavailable MILKA, DR KAYE Reynoso Attending Unavailable ALVA, DR RANDY Mckee Primary Care Unavailable KRYSTEN, DR ANNE Consulting Unavailable OXFORD, DR HIRAL Meza Consulting Unavailable MILKA, DR KAYE Reynoso Consulting Unavailable Sandrita WILLETT Primary Care Physician [phone] RANDY CALLE Primary Care Physician Randy Calle Unavailable Unavailable Unavailable Christy WRIGHT, Dr. Shanon Gtz Attending Unavailable McGuinn II, Dr. Shanon Gtz Referring Unavailable Furlong, Dr. Randy Meier Primary Care Unava ilable McGuinn II, Dr. Shanon Gtz Attending Unavailable McGuinn II, Dr. Shanon Gtz Referring Unavailable Furlong, Dr. Randy Meier Primary Care Unava ilable Shakeeluinn II, Dr. hSanon Gtz Attending Unavailable McGuinn II, Dr. Shanon Gtz Referring Unavailable Furlong, Dr. Randy Meier [facility] Care Unava ilable Alec, Starr Cortes Attending Unavajenna Michael, Ms. Brittani Cortes Referring Unavai lable Furlong, Dr. Randy Meier [facility] Care Unava ilable BRITTANI AVALOS Attending Unavailable KRISTAN MICHAEL, BRITTANI Referring Unavailable Furlong, Dr. Randy Meier Primary Care Unava ilable Furloterry, DO Padilla Primary Care Provider Jacques, OPHTHALMIC TECH Richie Attending Provider [phone] Randy Calle MD Primary Care Provider [phone] JACQUES, RICHIE L Referring Unavailable JACQUES, RICHIE L Primary Care Unavailable JACQUES, RICHIE L Referring Unavailable JACQUES, RICHIE L Primary Care Unavailable JACQUES, RICHIE L Referring Unavailable JACQUES, RICHIE L Primary Care Unavailable JACQUES, RICHIE L Referring Unavailable JACQUES, RICHIE L Primary Care Unavailable JACQUES, RICHIE L Referring Unavailable JACQUES, RICHIE L Primary Care Unavailable JACQUES, RICHIE L Referring Unavailable JACQUES, RICHIE L Primary Care Unavailable JACQUES, RICHIE L Referring Unavailable JACQUES, RICHIE L Primary Care Unavailable Jacques FLUOROSCOPE OPERATOR-GARMENT STEAMER, Richie L Primary Care Provider SHANON HARRISON Attending Unavailable RANDY CALLE Primary Care Unavailab le FurloDO Randy stewart Primary Care Provider MD Quincy Colbert Attending Provider MD Aarti Hope Referring Provider [phone] Jacques FLUOROSCOPE OPERATOR-GARMENT STEAMER, Richie L Primary Care Provider EsteralannaDO terry Randy Primary Care Provider MD Quincy Colbert Attending Provider MD Aarti Hope Referring Provider HECHRISTY Attending Unavailable JACQUES, RICHIE L Referring Unavailable JACQUES, RICHIE L Primary Care Unavailable SUGJHON Mckee Attending Unavail able JACQUES, RCIHIE L Referring Unavailable JACQUES, RICHIE L Primary Care Unavailable CUEVASMARISELA Attending Unavailable JACQUES, RICHIE L Referring Unavailable JACQUES, RICHIE L Primary Care Unavailable CUEVASMARISELA A Attending Unavailable JACQUES, RICHIE L Referring Unavailable JACQUES, RICHIE L Primary Care Unavailable CUEVASMARISELA Attending Unavailable JACQUES, RICHIE L Referring Unavailable JACQUES, RICHIE L Primary Care Unavailable CUEVASMARISELA Attending Unavailable JACQUES, RICHIE L Referring Unavailable JACQUES, RICHIE L Primary Care Unavailable JHON ROSADO Attending Unavail able JACQUES, RICHIE L Referring Unavailable JACQUES, RICHIE L Primary Care Unavailable MARGARITAGJHON Attending Unavail able JACQUES, RICHIE L Referring Unavailable JACQUES, RICHIE L Primary Care Unavailable CUEVASMARISELA A Attending Unavailable JACQUES, RICHIE L Referring Unavailable JACQUES, RICHIE L Primary Care Unavailable ROMPSUZETTE H Attending Unavailable JACQUES, RICHIE L Referring Unavailable JACQUES, RICHIE L Primary Care Unavailable CUEVASMARISELA CARLSON Attending Unavailable JACQUES, RICHIE L Referring Unavailable JACQUES, RICHIE L Primary Care Unavailable CUEVAS MARISELA A Attending Unavailable JACQUES, RICHIE L Referring Unavailable JACQUES, RICHIE L Primary Care Unavailable HE, CHRISTY Eason Attending Unavailable JACQUES, RICHIE L Referring Unavailable JACQUES, RICHIE L Primary Care Unavailable BRITTANI MICHAEL Admitting Unavailable BRITTANI MICHAEL Attending Unavailable Rusty Horton Attending Unavailable Sandrita WILLETT Attending Unavailable NILLSandrita Attending Unavailable Sandrita WILLETT Attending Unavailable Chnatal Bear Admitting Unavailable Chantal Bear Attending Unavailable HE, CHRISTY A Referring Unavailable JACQUES, RICHIE L Primary Care Unavailable HE, CHRISTY A Referring Unavailable JACQUES, RICHIE L Primary Care Unavailable JOHN PETERSON Referring Unavailable JACQUES, RICHIE L Primary Care Unavailable HE, CHRISTY A Referring Unavailable JACQUES, RICHIE L Primary Care Unavailable HE, CHRISTY A Referring Unavailable JACQUES, RICHIE L Primary Care Unavailable HE, CHRISTY A Referring Unavailable JACQUES, RICHIE L Primary Care Unavailable Althea Miller Referring Unavailable JACQUES, RICHIE L Primary Care Unavailable HE, CHRISTY A Admitting Unavailable HE, CHRISTY A Attending Unavailable JACQUES, RICHIE L Primary Care Unavailable HARIS OSBORN Attending Unavailable JACQUES, RICHIE L Primary Care Unavailable HE, CHRISTY A Attending Unavailable HE, CHRISTY A Referring Unavailable JACQUES, RICHIE L Primary Care Unavailable HE, CHRISTY A Attending Unavailable HE, CHRISTY A Referring Unavailable JACQUES, [facility] Primary Care Unavailable MARISELA CUEVAS Referring Unavailable JACQUES, [facility] Primary Care Unavailable HE, CHRISTY A Referring Unavailable JACQUES, RICHIE L Primary Care Unavailable ENRIQUE, AARTI Referring Unavailable JACQUES, RICHIE L Primary Care Unavailable JHON ROSADO Admitting Unavail able SUGJHON Mckee Attending Unavail able SUGJHON Mckee Referring Unavail able JACQUES, RICHIE L Primary Care Unavailable MANSOOR, CARLENE U Consulting Unavailable STANLEY MCDERMOTT Attending Unavailable JACQUES, RICHIE L Primary Care Unavailable JACQUES, RICHIE L Primary Care Unavailable KAYLEIGH ADAMES Attending Unavailabl e MANSOOR, CARLENE U Consulting Unavailable NIMO MEZA Admitting Unavailab EPIFANIO Crawford Consulting Unavailable SHANON JOE Consulting Unavailable EPIFANIO HENRY Attending Unavailable EPIFANIO HENRY Referring Unavailable JACQUES, RICHIE L Primary Care Unavailable LILIANE VALLE Referring Unavailable JACQUES, RICHIE L Primary Care Unavailable EVAN THOMPSON Attending Unavailable EVAN THOMPSON Attending Unavailable GEORGIANA JUSTICE Attending Unavailable YVES SOLIS Attending Unavailable YVES SOLIS Attending Unavailable YVES SOLIS Attending Unavailable Randy Calle Primary Care Unavailable Jacques, Richie Attending Unavailable Jacques, Richie Admitting Unavailable Randy Calle Primary Care Unavailable Aarti Hope Referring Unavailable Quincy Colbert Attending Unavailable Quincy Colbert Admitting Unavailable CLINT VILLANUEVA Attending Unavailable CLINT VILLANUEVA Admitting Unavailable HERMAN LUI Attending Unavailable SCOTT RODRIGUEZ Attending Unavailable SANDRITA AGOSTO Attending Unavailable CLINT VILLANUVEA Attending Unavailable RESEARCH, GENERIC Attending Unavailable Allergies Allergy Classification Reported Allergen(s) Allergy Type Date of Onset Reaction(s) Facility (20 sources) Meperidine; Translations: [meperidine] Drug Allergy 9 anaphylaxis, Eruption of skin (disorder), Swelling, Unknown, Facial Swelling [facility] [place] (1 source) Adhesive bandage; Translations: [Adhesive Bandage] Propensity to adverse reactions (disorder) [facility] Repository (3 sources) Meperidine; Translations: [Demerol] Drug Allergy 3 [facility] Repository (5 sources) Adhesive agent; Translations: [ADHESIVE] Drug allergy (disorder) 5 [facility] Repository (11 sources) Meperidine Drug Allergy 3 Unknown [facility] (11 sources) Wound Dressing Adhesive Drug Allergy 3 Unknown, Rash [facility] (20 sources) Adhesive agent Propensity to adverse reactions to drug 2 [facility] Work Phone: (20 sources) DAPTOmycin; Translations: [daptomycin] Drug Allergy 4 Flushing, Flushing (disorder) [facility] (16 sources) tigecycline; Translations: [tigecycline] Drug Allergy 4 Vomitus (substance) [facility] Work Phone: (20 sources) Doxycycline; Translations: [doxycycline] Drug Allergy 4 Rash [facility] (10 sources) Adhesive Tape-Silicones; Translations: [ADHESIVE TAPE-SILICONES] Propensity to adverse reactions to drug 4 Itching [facility] (6 sources) Daptomycin Propensity to adverse reactions 4 Other [facility] (6 sources) Tetracycline Drug Allergy 4 [facility] (6 sources) tigecycline Drug Allergy 4 Hives [facility] (6 sources) Vancomycin Drug Allergy 4 [facility] (1 source) Meperidine Drug Allergy 2 [facility] Repository Medications Current Medications Medication Drug Class(es) Dates Sig (Normalized) Sig (Original) acetaminophen 325 mg / HYDROcodone bitartrate 5 mg oral tablet (9 sources) Opioid Agonist Start: 05-13-2023 HYDROcodone-acetami nophen ([place]) 5-325 MG tablet TAKE ONE TABLET BY MOUTH EVERY 6 HOURS NEEDED FOR PAIN SCALE 4 TO 6 05/13/2023 Active amoxicillin 875 mg / clavulanate 125 mg oral tablet (1 source) Penicillin-class Antibacterial Start: 11-11-2021 take 1 tablet by mouth every twelve hours Amoxicillin-Pot Clavulanate 875-125 MG 1 tablet Orally every 12 hrs for 7 days Oct, Active apixaban 5 mg oral tablet (20 sources) Factor Xa Inhibitor Start: 09-18-2023 End: 12-09-2023 take 1 tablet by mouth in the morning, then take 1 tablet by mouth at bedtime ELIQUIS 5 mg tablet Indications: deep venous thrombosis Take 1 tablet (5 mg total) by mouth in the morning and 1 tablet (5 mg total) before bedtime. Indications: blood clot in a deep vein of the extremities. 09/18/2023 Active benzonatate 100 mg oral capsule (1 source) Non-narcotic Antitussive Start: 07-14-2022 End: 07-21-2022 take 1 capsule by mouth three times daily Tessalon 100 mg Cap 100 mg = 1 cap(s), Oral, TID, X 7 day(s), # 21 cap(s), Refills(s) 0, Pharmacy: [facility]/pharmacy #[id number], 180, cm, 07/14/22 14:05:00 EDT, Height/Length Dosing, 99.7, kg, 07/14/22 14:05:00 EDT, Weight Dosing Start Date: 07/14/22 Stop Date: 07/21/22 Status: Ordered capecitabine 500 mg oral tablet (19 sources) Nucleoside Metabolic Inhibitor Start: 10-13-2023 capecitabine (XELODA) 500 mg chemo tablet Take by mouth after surgery 10/13/2023 Active cefuroxime 250 mg oral tablet (4 sources) Cephalosporin Antibacterial Start: 03-17-2018 Cefuroxime Axetil Active TABLET March 17, 2018 1:00am Chlorthalidone (20 sources) Thiazide-like Diuretic Start: 04-06-2023 chlorthalidone as directed, Refills(s) 0 Start Date: 04/06/23 Status: Ordered Start: 03-03-2023 take 1 tablet by haydee th in the morning chlorthalidone (Hygroton) 25 MG tablet Take 25 mg by mouth in the morning. 03/03/2023 Active Start: 03-03-2023 take 0.5 tablet by m outh once daily chlorthalidone (HYGROTON) 25 mg tablet Take 0.5 tablets (12.5 mg total) by mouth daily. 03/03/2023 Active Start: 07-21-2022 take 1 tablet by haydee th once daily Chlorthalidone 50 MG Oral Tablet TAKE ONE TABLET BY MOUTH DAILY Quantity: 90 Refills: 3 Ordered: 22-Aug-2022 Shanon Harrison MD Start : 21-Jul-2022 Active dose increased Start: 07-21-2022 take 1 tablet by haydee th once daily Chlorthalidone 25 MG Oral Tablet TAKE 1 TABLET Daily Quantity: 90 Refills: 3 Ordered: 21-Jul-2022 Shanon Harrison MD Start : 21-Jul-2022 Active ciprofloxacin 500 mg oral tablet (10 sources) Quinolone Antimicrobial Start: 12-09-2023 End: 12-16-2023 take 1 tablet by mouth once ciprofloxacin HCl (CIPRO) 500 mg tablet Take 1 tablet (500 mg total) by mouth every 12 (twelve) hours for 7 days. 14 tablet 12/09/2023 12/16/2023 Active Start: 12-07-2023 End: 12-09-2023 take 1 tablet by mouth every twelve hours 500 mg, oral, Every 12 hours scheduled, First dose (after last modification) on Thu12/07/23 at 2100, Food-Drug Interaction Education Required May alter blood glucose or insulin requirements Administer at least 2 hours before or 6 hours after antacids, or products containing zinc, calcium, or iron Enteral Feeding Instructions: Hold tube feedings for ONE hour before and TWO hours after administration Do NOT give suspension through feeding tube Do NOT give any any oral dose form (tablet, suspension) through j-tube, Specific Use Criteria: Other, Specify: SSTI, Fluoroquinolones contain FDA Black Box warnings. Due to safety concerns, avoid use in acute bacterial sinusitis, acute bacterial exacerbation of chronic bronchitis, or acute uncomplicated cystitis if possible. Use alternative treatment if available. I acknowledge the Black Box warnings of fluoroquinolones. Start: 12-03-2023 End: 12-07-2023 take 1 tablet by mouth every twenty-four hours 500 mg, oral, Every 24 hours scheduled, First dose on Sintia 12/03/23 at 1200, Food-Drug Interaction Education Required May alter blood glucose or insulin requirements Administer at least 2 hours before or 6 hours after antacids, or products containing zinc, calcium, or iron Enteral Feeding Instructions: Hold tube feedings for ONE hour before and TWO hours after administration Do NOT give suspension through feeding tube Do NOT give any any oral dose form (tablet, suspension) through j-tube, Specific Use Criteria: SSTI (diabetic foot infection), Fluoroquinolones contain FDA Black Box warnings. Due to safety concerns, avoid use in acute bacterial sinusitis, acute bacterial exacerbation of chronic bronchitis, or acute uncomplicated cystitis if possible. Use alternative treatment if available. I acknowledge the Black Box warnings of fluoroquinolones. citalopram 10 mg oral tablet (4 sources) Serotonin Reuptake Inhibitor Start: 03-17-2018 Citalopram Active TABLET March 17, 2018 1:00am clarithromycin 500 mg oral tablet (11 sources) Macrolide Antimicrobial Start: 12-09-2023 End: 01-15-2024 take 1 tablet by mouth once clarithromycin (BIAXIN) 500 mg tablet Take 1 tablet (500 mg total) by mouth every 12 (twelve) hours for 37 days. 74 tablet 12/09/2023 01/15/2024 Active Start: 12-03-2023 End: 12-09-2023 take 500 mg by mouth every twelve hours 500 mg, oral, Every 12 hours scheduled, First dose on Sintia 12/03/23 at 1200, Indication: Nontuberculous mycobacterial infection (camp manager drug) cyclobenzaprine hydrochloride 10 mg oral tablet (20 sources) Muscle Relaxant Start: 04-06-2023 cyclobenzaprin e as directed, Refills(s) 0 Start Date: 04/06/23 Status: Ordered Start: 12-01-2022 End: 12-09-2023 take 1 tablet by mouth once daily in the evening cyclobenzaprine (FLEXERIL) 10 mg tablet TAKE ONE TABLET BY MOUTH ONCE DAILY IN THE EVENING 30 tablet 11 04/28/2023 Active take 1 tablet by haydee th three times daily as needed cyclobenzaprine (Flexeril) 10 MG tablet Take 10 mg by mouth 3 (three) times a day as needed Active dexamethasone 1 mg oral tablet (20 sources) Corticosteroid Start: 04-21-2023 End: 12-09-2023 dexAMETHasone (Decadron) 1 MG tablet TAKE ONE TABLET BY MOUTH TWICE A DAY ON DAYS 3-6 AFTER CHEMOTHERAPY FOR FATIGUE 04/21/2023 Active DULoxetine 30 mg delayed release oral capsule (19 sources) Serotonin and Norepinephrine Reuptake Inhibitor take 1 capsule by mouth once daily at bedtime DULoxetine (CYMBALTA) 30 mg capsule Take 1 capsule (30 mg total) by mouth once daily at bedtime. Active FeroSul 325 mg oral tablet (3 sources) Start: 07-14-2022 FeroSul 325 mg oral tablet Refills(s) 0 Start Date: 07/14/22 Status: Ordered ferrous sulfate 325 mg oral tablet (20 sources) Start: 03-07-2022 End: 12-09-2023 take 1 tablet by mouth in the morning FeroSul 325 (65 Fe) MG tablet TAKE 1 TABLET (325 MG TOTAL) BY MOUTH IN THE MORNING. 06/04/2022 Active fluticasone propionate 0.05 mg/actuat metered dose nasal spray (20 sources) Corticosteroid Start: 04-06-2023 Flonase 0.05 mg/inh [place] 1 spray(s), Nasal, BID, Refill(s) 0 Start Date: 04/06/23 Status: Ordered fluticasone (Austen nase) 50 MCG/ACT nasal spray 1 (one) time each day at the same time Active take 1 spray(s) nasal route once daily fluticasone propionate (FLONASE) 50 mcg/actuation nasal spray 1 spray in each nostril Nasally Once a day Active gabapentin 300 mg oral capsule (20 sources) Anti-epileptic Agent Start: 05-02-2023 End: 12-09-2023 take 1 capsule by mouth twice daily gabapentin (Neurontin) 300 MG capsule TAKE ONE CAPSULE BY MOUTH TWICE A DAY FOR HOT FLASHES 05/02/2023 Active hydroCHLOROthiazide 12.5 mg oral tablet (11 sources) Thiazide Diuretic hydroCHLOROthi azide (HYDRODiuril) 12.5 MG tablet 1 (one) time each day at the same time Active hydroCHLOROthiazide 12.5 mg / lisinopril 20 mg oral tablet (20 sources) Thiazide Diuretic, Angiotensin Converting Enzyme Inhibitor Start: 06-17-2022 take 1 tablet by mouth in the morning lisinopril-hydroCHLORO thiazide 20-12.5 MG tablet Take 1 tablet by mouth in the morning. 06/17/2022 Active Start: 11-27-2021 take 1 tablet by haydee th every twenty-four hours lisinopril-hydroCHLOROthiazide (PRINZIDE,ZESTORETIC) 20-12.5 mg per tablet Take 1 tablet by mouth daily. 90 tablet 1 11/27/2021 Active lisinopril-hydro CHLOROthiazide 20-25 MG tablet 1 (one) time each day at the same time Active imipenem-cilastatin 500 mg in sodium chloride 0.9 % 100 mL IVPB MINI-BAG Plus (10 sources) Start: 12-09-2023 End: 01-15-2024 take 500 mg intravenously every twelve hours imipenem-cilastatin 500 mg in sodium chloride 0.9 % 100 mL IVPB MINI-BAG Plus Infuse 500 mg into a venous catheter every 12 (twelve) hours for 37 days. WBC, platelets, creatinine, LFTs weekly while on antibiotics. 1 each 12/09/2023 01/15/2024 Start: 12-09-2023 End: 01-15-2024 take 500 mg intravenously every twelve hours imipenem-cilastatin 500 mg in sodium chloride 0.9 % 100 mL IVPB MINI-BAG Plus Infuse 500 mg into a venous catheter every 12 (twelve) hours for 37 days. WBC, platelets, creatinine, LFTs weekly while on antibiotics. 1 each 12/09/2023 01/15/2024 Active lidocaine 25 mg/ml / prilocaine 25 mg/ml topical cream (20 sources) Antiarrhythmic, Amide Local Anesthetic Start: 05-12-2023 lidocaine-prilocaine (Emla) 2.5-2.5 % cream APPLY QUARTER SIZE AMOUNT TO AREA OF MEDIPORT, 30 MINS BEFORE CHEMO BLOOD DRAW 05/12/2023 Active Start: 05-12-2023 lidocaine-pril ocaine (EMLA) cream Apply 1 Application topically as needed for pain. 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 Do all this for 13 days. 26 tablet 12/17/2023 12/30/2023 Active lisinopril 20 mg oral tablet (20 sources) Angiotensin Converting Enzyme Inhibitor Start: 04-10-2023 take 1 tablet by mouth once daily lisinopril 20 MG tablet Take 20 mg by mouth Daily 04/28/2023 Active Start: 07-21-2022 take 1 tablet by haydee once daily Lisinopril 20 MG Oral Tablet TAKE 1 TABLET DAILY. Quantity: 90 Refills: 3 Ordered: 21-Jul-2022 Shanon Harrison MD Start : 21-Jul-2022 Active Losartan (1 source) Angiotensin 2 Receptor Bridgette Cozaar Active mometasone furoate 1 mg/ml topical cream (1 source) Corticosteroid Start: 2023 Mometasone Active 1 APPLIC TOPICAL Daily December 29, 2023 12:00am Apply to radiation site, once a day, AFTER radiation treatment. predniSONE 5 mg oral tablet (20 sources) End: 2023 take 1 tablet by mouth in the morning predniSONE (Deltasone) 5 MG tablet Take 5 mg by mouth in the morning. Active prochlorperazine 10 mg oral tablet (9 sources) Phenothiazine Start: 2023 take 1 tablet by mouth three times daily as needed for nausea prochlorperazine (Compazine) 10 MG tablet TAKE ONE TABLET BY MOUTH THREE TIMES A DAY NEEDED FOR NAUSEA 04/21/2023 Active Spironolactone (20 sources) Aldosterone Antagonist Start: 2023 spironolactone as directed, Refills(s) 0 Start Date: 04/06/23 Status: Ordered Start: 03-26-2023 End: 03-25-2024 take 1 tablet by mouth in the morning spironolactone (Aldactone) 25 MG tablet Take 25 mg by mouth in the morning. 03/26/2023 03/25/2024 Active traZODone hydrochloride 50 mg oral tablet (20 sources) Serotonin Reuptake Inhibitor Start: 03-17-2018 End: 12-09-2023 take 1 tablet by mouth at bedtime traZODone (Desyrel) 50 MG tablet Take 50 mg by mouth at bedtime 03/04/2023 Active Start: 03-17-2018 Trazodone Acti ve TABLET March 17, 2018 1:00am traZODone HCl Ac tive vitamin b12 1 mg oral tablet (12 sources) Vitamin B12 Start: 12-06-2023 End: 12-09-2023 take 1 tablet by mouth in the morning cyanocobalamin 1000 MCG tablet Take 1 tablet (1,000 mcg total) by mouth in the morning. 90 tablet 3 12/10/2023 Active Start: 12-05-2023 End: 12-05-2023 inject 1000 ug by intramuscular injection once 1,000 mcg, intramuscular, Once, On 12/05/23 at 1000, For 1 dose Completed/Discontinued Medications Medication Drug Class(es) Dates Sig (Normalized) Sig (Original) acetaminophen 500 mg oral tablet (20 sources) Start: 12-02-2023 End: 12-09-2023 take 1 tablet by mouth every six hours as needed for pain and fever 500 mg, oral, Every 6 hours PRN, mild pain - pain scale 1-3, temperature greater than 38 C, Starting on Thu12/09/23 at 0939, [Warning: Total Acetaminophen not to exceed more than 4 grams (4000 mg) in 24 hours] Start: 10-29-2023 take 2 tablets by mo [facility] every eight hours as needed for pain acetaminophen (TYLENOL EXTRA STRENGTH) 500 mg tablet Take 2 tablets (1,000 mg total) by mouth every 8 (eight) hours as needed for pain. 10/29/2023 Active acetaminophen 250 mg / aspirin 250 mg / caffeine 65 mg oral tablet (1 source) Platelet Aggregation Inhibitor, Nonsteroidal Anti-inflammatory Drug, Central Nervous System Stimulant, Methylxanthine Start: 12-03-2023 End: 12-09-2023 take 2 tablets by mouth every six hours as needed for headache 2 tablet, oral, Every 6 hours PRN, headaches, Starting on Sintia 12/03/23 at 1225 albuterol 0.83 mg/ml inhalation solution (20 sources) beta2-Adrenergic Agonist Start: 12-03-2023 End: 12-09-2023 take 2.5 mg by inhalation every six hours as needed for wheezing and dyspnea Start: 03-07-2022 take 3 mL by inhalat ion every six hours as needed for wheezing albuterol (PROVENTIL,VENTOLIN) 2.5 mg /3 mL (0.083 [...] needed Inhalation every 4 hrs Oct, Active calcium chloride 0.0014 meq/ml / potassium chloride 0.004 meq/ml / sodium chloride 0.103 meq/ml / sodium lactate 0.028 meq/ml injectable solution (2 sources) Start: 12-03-2023 End: 12-08-2023 take 100 mL intravenously every hour 100 mL/hr, intravenous, Continuous, Starting on 12/07/23 at 1215, For 24 hours 100 ml calcium gluconate 20 mg/ml injection (1 source) Start: 12-03-2023 End: 12-09-2023 take 4-4.3 mg intravenously every hour as needed 2,000 mg, intravenous, at 50 mL/hr, Administer over 2 Hours, As needed, ionized calcium 4 to 4.3 mg/dL, Starting on Sintia 12/03/23 at 1405, IV Administration of calcium via a central or deep vein preferred. Avoid administration in small hand veins VESICANT (RED) calcium gluconate 3,000 mg in sodium chloride 0.9 % 100 mL IVPB (1 source) Start: 12-03-2023 End: 12-09-2023 take 3.5-3.9 mg intravenously every hour as needed 3,000 mg, intravenous, at 43.3 mL/hr, Administer over 3 Hours, As needed, ionized calcium 3.5 to 3.9 mg/dL, Starting on Sintia 12/03/23 at 1405, IV Administration of calcium via a central or deep vein preferred. Avoid administration in small hand veins VESICANT (RED) calcium gluconate 4,000 mg in sodium chloride 0.9 % 250 mL IVPB (1 source) Start: 12-03-2023 End: 12-09-2023 take 3.4 mg intravenously every hour as needed 4,000 mg, intravenous, at 72.5 mL/hr, Administer over 4 Hours, As needed, ionized calcium 3.4 mg/dL or less, Starting on Sintia 12/03/23 at 1405, IV administration of calcium via a central or deep vein is preferred. Avoid administration in small hand veins. VESICANT (RED) carvedilol 25 mg oral tablet (17 sources) alpha-Adrener gic Bridgette, beta-Adrenerg ic Bridgette Start: 05-01-2022 End: 01-25-2024 take 1 tablet by mouth in the morning carvedilol (Coreg) 25 MG tablet Take 25 mg by mouth in the morning and 25 mg in the evening. 05/01/2022 01/25/2024 Discontinued (Therapy completed) Coreg Active diazePAM 5 mg oral tablet (11 sources) Benzodiazepine Start: 11-11-2023 End: 12-09-2023 take 1 tablet by mouth every six hours as needed for muscle spasms diazePAM (VALIUM) 5 mg tablet Indications: Encounter for postoperative care , S/P breast reconstruction, bilateral , Malignant neoplasm of lower-inner quadrant of right breast of female, estrogen receptor positive (CMS-HCC) , Acquired absence of breast, bilateral Take 1 tablet (5 mg total) by mouth every 6 (six) hours as needed for muscle spasms. 18 tablet 11/11/2023 12/09/2023 Discontinued (Stop Taking at Discharge) diphenhydrAMINE (1 source) Histamine-1 Receptor Antagonist Start: 12-07-2023 End: 12-09-2023 take 25 mg intravenously every six hours as needed 25 mg, intravenous, Every 6 hours PRN, itching, Starting on 12/07/23 at 0911, Look-alike/sound-a like medication - verify indication for use. docusate sodium 50 mg / sennosides, care home 8.6 mg oral tablet (1 source) Start: 12-02-2023 End: 12-09-2023 take 1 tablet by mouth every twelve hours as needed for constipation 1 tablet, oral, Every 12 hours PRN, constipation, Starting on Thu12/02/23 at 2313 doxycycline hyclate 100 mg oral capsule (1 source) Tetracycline-class Drug Start: 12-09-2023 End: 12-09-2023 100 mg, oral, 2 times daily, First dose on Thu12/09/23 at 0900, May give with meals to decrease GI upset. Administer with at least 8 ounces of water and have patient sit up for at least 30 minutes after taking to reduce the risk of esophageal irritation and ulceration., Indication: Skin and soft tissue infection 0.4 ml enoxaparin sodium 100 mg/ml prefilled syringe (1 source) Low Molecular Weight Heparin Start: 10-19-2023 End: 11-30-2023 inject 0.4 mL by subcutaneous injection in the morning enoxaparin (LOVENOX) 40 mg/0.4 mL syringe Inject 0.4 mL (40 mg total) under the skin in the morning. 10/19/2023 11/30/2023 Discontinued (Stop Taking at Discharge) ertapenem 1,000 mg in sodium chloride 0.9 % 50 mL IVPB MINI-BAG Plus (10 sources) Start: 11-29-2023 End: 12-09-2023 take 1000 mg intravenously every twenty-four hours ertapenem 1,000 mg in sodium chloride 0.9 % 50 mL IVPB MINI-BAG Plus Infuse 1,000 mg into a venous catheter daily for 10 days. 1 each 11/29/2023 12/09/2023 Discontinued (Stop Taking at Discharge) Start: 11-29-2023 End: 12-09-2023 take 1000 mg intravenously every twenty-four hours ertapenem 1,000 mg in sodium chloride 0.9 % 50 mL IVPB MINI-BAG Plus Infuse 1,000 mg into a venous catheter daily for 10 days. 1 each 11/29/2023 12/09/2023 Suspended Start: 11-29-2023 End: 12-09-2023 take 1000 mg intravenously every twenty-four hours ertapenem 1,000 mg in sodium chloride 0.9 % 50 mL IVPB MINI-BAG Plus Infuse 1,000 mg into a venous catheter daily for 10 days. 1 each 11/29/2023 12/09/2023 Active furosemide 20 mg oral tablet (11 sources) Loop Diuretic Start: 08-12-2023 End: 08-11-2024 take 1 tablet by mouth once daily furosemide (LASIX) 20 mg tablet Take 1 tablet (20 mg total) by mouth daily. 08/12/2023 12/09/2023 Discontinued (Stop Taking at Discharge) 50 ml glucose 500 mg/ml prefilled syringe (2 sources) Start: 12-02-2023 End: 12-09-2023 25 mL, intravenous, As needed, low blood sugar, blood glucose less than 70 mg/dL and unconscious or NPO with IV access, Starting on 12/02/23 at 2314, Push over 1-3 minutes STAT. If conscious and not NPO, immediately follow with meal tray or high protein (7 grams) snack if tray not available. If NPO, initiate 5% dextrose in water at 100 mL/hr and contact prescriber for additional orders. If blood glucose is not greater than 70 mg/dL after initial treatment, repeat treatment. VESICANT (RED) Warning: HYPERTONIC solution. Start: 12-02-2023 End: 12-09-2023 15 g, oral, As needed, low b lood sugar, blood glucose less than 70 mg/dL, Starting on 12/02/23 at 2314, If patient conscious and taking PO. If blood glucose is not greater than 70 mg/dL after initial treatment, repeat treatment. 1 ml hydrALAZINE hydrochloride 20 mg/ml injection (1 source) Arteriolar Vasodilator Start: 12-03-2023 End: 12-09-2023 take 10 mg intravenously every four hours as needed 10 mg, intravenous, Every 4 hours PRN, high blood pressure, Systolic blood pressure more than 150, Starting on Sintia 12/03/23 at 1410, Look-alike/sound-alike medication - verify indication for use. Administer IV doses as a slow IV push; maximum rate: 5 mg/minute. hydrocortisone 25 mg/ml topical lotion (1 source) Corticosteroid Start: 12-08-2023 End: 12-09-2023 1 Application, topical, 2 times daily, First dose on Thu12/08/23 at 1145, Apply to arm and leg rash prn itching imipenem-cilastat in (PRIMAXIN) 500 mg in sodium chloride 0.9 % 100 mL IVPB-MBP (1 source) Start: 12-05-2023 End: 12-09-2023 take 500 mg intravenously every twelve hours 500 mg, intravenous, at 200 mL/hr, Administer over 30 Minutes, Every 12 hours, First dose on 12/05/23 at 1730, ADD-VANTAGE/MBP- Discard 24 hours after activating; dissolve drug prior to administration, Pathogen: Other, Specify: request of ID, Indication: Other, Authorizing Service: ID Consult has been placed, I acknowledge that an appropriate consult is REQUIRED to use this drug at [facility], [facility] and [facility] per [facility]-approved policy # MM 1.15: Yes iron sucrose (VENOFER) 200 mg in sodium chloride 0.9 % 100 mL IVPB (1 source) Start: 12-05-2023 End: 12-07-2023 200 mg, intravenous, at 440 mL/hr, Administer over 15 Minutes, Daily, First dose on 12/05/23 at 1000, For 3 doses, Monitor patient for hypersensitivity reactions for at least 30 minutes after the infusion. AVOID the use of H1 antihistamines, such as diphenhydramine, as this may worsen hypersensitivity reactions. Have resuscitation equipment and medications available. labetalol hydrochloride 5 mg/ml injectable solution (1 source) beta-Adrenergic Bridgette Start: 12-03-2023 End: 12-09-2023 take 10 mg intravenously every four hours as needed 10 mg, intravenous, Every 4 hours PRN, high blood pressure, Systolic blood pressure more than 160 hold for heart rate less than 60. Use hydralazine 1st, Starting on Thu12/03/23 at 1410, Look-alike/sound-alike medication - verify indication for use. magnesium oxide 400 mg oral tablet (20 sources) Start: 12-05-2023 End: 12-09-2023 take 400 mg by mouth twice daily 400 mg, oral, 2 times daily, First dose on 12/05/23 at 2100 100 ml magnesium sulfate 40 mg/ml injection (4 sources) Start: 12-06-2023 End: 12-09-2023 4,000 mg, intravenous, at 25 mL/hr, Administer over 240 Minutes, Once, On 12/06/23 at 1000, For 1 dose, For magnesium of 1.5 from this morning Start: 12-03-2023 End: 12-09-2023 2,000 mg, intravenous, at 25 mL/hr, Administer over 120 Minutes, As needed, Magnesium level 1.7 to 1.9 mg/dL, or Ionized Magnesium level 0.45 to 0.5 mmol/L., Starting on 12/06/23 at 0946, Recheck magnesium level 4 hours after infusion complete. With each magnesium result continue the replacement orders as needed. methylPREDNISolone 125 mg injection (3 sources) Corticosteroid Start: 12-09-2023 End: 12-09-2023 60 mg, intravenous, Once, On 12/09/23 at 1145, For 1 dose, May alter blood glucose or insulin requirements. Look-alike/sound-alike medication - verify indication for use. Start: 12-08-2023 End: 12-08-2023 125 mg, intravenous, Once, O n 12/08/23 at 0930, For 1 dose, May alter blood glucose or insulin requirements. Look-alike/sound-alike medication - verify indication for use. Start: 11-11-2021 methylPREDNISo lone 4 MG as directed Orally Once a day for 6 days Oct, Active 24 hr metoprolol succinate 100 mg extended release oral tablet (20 sources) beta-Adrenergic Bridgette Start: 12-05-2023 End: 12-09-2023 100 mg, oral, 2 times daily, First dose (after last modification) on 12/05/23 at 2100, Hold for systolic blood pressure less than 110 or heart rate less than 60 Look-alike/sound-alike medication - verify indication for use. Do not crush or chew. Start: 12-03-2023 End: 12-05-2023 100 mg, oral, Daily, First d ose on Sintia 12/03/23 at 0900, Hold for systolic blood pressure less than 110 or heart rate less than 60 Look-alike/sound-alike medication - verify indication for use. Do not crush or chew. Start: 09-09-2023 take 1 tablet by haydee th every twenty-four hours in the morning metoprolol succinate XL (TOPROL XL) 100 mg 24 hr tablet Take 1 tablet (100 mg total) by mouth in the morning. 09/09/2023 Active Start: 04-06-2023 metoprolol as directed, Refills(s) 0 Start Date: 04/06/23 Status: Ordered Start: 07-21-2022 take 1 tablet by haydee th once daily Metoprolol Succinate ER 100 MG Oral Tablet Extended Release 24 Hour Take 1 tablet daily Quantity: 90 Refills: 3 Ordered: 21-Jul-2022 Shanon Harrison MD Start : 21-Jul-2022 Active Start: 03-17-2018 Metoprolol Suc cinate (Toprol Xl) 25 mg Tablet Extended Release 24 Hr Active March 17, 2018 1:00am 1 ml morphine sulfate 2 mg/ml prefilled syringe (1 source) Opioid Agonist Start: 12-03-2023 End: 12-03-2023 2 mg, intravenous, Once, On Sintia 12/03/23 at 0630, For 1 dose, Look-alike/sound-alike medication - verify indication for use. 2 ml ondansetron 2 mg/ml injection (1 source) Serotonin-3 Receptor Antagonist Start: 12-02-2023 End: 12-09-2023 take 4 mg intravenously every four hours as needed for nausea and vomiting 4 mg, intravenous, Every 4 hours PRN, nausea, vomiting, Starting on Thu12/02/23 at 2313, Administer over 2-5 minutes. oxyCODONE hydrochloride 5 mg oral tablet (9 sources) Opioid Agonist Start: 11-28-2023 End: 12-09-2023 take 1 tablet by mouth every four hours as needed for pain oxyCODONE (ROXICODONE) 5 mg immediate release tablet Indications: Cellulitis of left breast , S/P breast reconstruction, bilateral Take 1 tablet (5 mg total) by mouth every 4 (four) hours as needed for pain for up to 5 days. Max Daily Amount: 30 mg 12 tablet 11/28/2023 12/09/2023 Discontinued (Stop Taking at Discharge) microencapsulated potassium chloride 20 meq extended release oral tablet (20 sources) Start: 12-06-2023 End: 12-09-2023 20 mEq, oral, Daily, First dose on Thu12/06/23 at 0900, Hold for potassium more than 4.5 Do not crush or chew. Start: 12-03-2023 End: 12-09-2023 potassium chloride (KLOR-CON M 20) CR tablet 20-60 mEq Start: 12-03-2023 End: 12-03-2023 20-40 mEq, oral, As needed, potassium supplementation, Starting on Sintia 12/03/23 at 0602, Progress to oral potassium replacement when patient tolerating oral intake. If dose administered, recheck potassium level 4 hours after last dose. For potassium level 3.4 to 3.8 mmol/L and GFR less than 30 mL/min or dialysis=20 mEq. For potassium level 3.1 to 3.3 mmol/L and GFR less than 30 mL/min or dialysis=30 mEq. For potassium level 3 mmol/L or less and GFR less than 30 mL/min or dialysis=40 mEq. Do not crush or chew. Start: 08-05-2023 take 1 dose by mouth in the morning KLOR-CON 20 mEq packet Take 1 packet (20 mEq total) by mouth in the morning. 08/05/2023 Active Start: 03-22-2023 take 1 tablet by [facility] twice daily at bedtime Start: 08-18-2022 take 1 tablet by [facility] once daily Klor-Con M20 20 MEQ Oral Tablet Extended Release Take 1 tablet daily Quantity: 90 Refills: 3 Ordered: 18-Aug-2022 Shanon Harrison MD Start : 18-Aug-2022 Active take 4 tablets by mo [facility] once daily potassium chloride CR (Klor-Con) 10 MEQ ER tablet TAKE 4 TABLETS (40 MEQ) BY MOUTH ONCE DAILY FOR 2 DAYS. DO NOT CRUSH, CHEW, OR SPLIT. Active potassium chlori de (K-TAB,KLOR-CON) 10 MEQ CR tablet Take 1 tablet (10 mEq total) by mouth in the morning. 0 Active 1000 ml sodium chloride 9 mg/ml injection (4 sources) Start: 12-02-2023 End: 12-09-2023 3 mL, intravenous, Every 12 hours scheduled, First dose on Thu12/02/23 at 2320 Start: 12-02-2023 End: 12-03-2023 take 100 mL intravenously every hour 100 mL/hr, intravenous, Continuous, Starting on Thu12/02/23 at 2320 Start: 12-02-2023 End: 12-09-2023 3 mL, intravenous, As needed , line care, before and after each intermittent use, Starting on Thu12/02/23 at 2313 Start: 12-02-2023 End: 12-02-2023 1,000 mL, intravenous, at 4, 000 mL/hr, Administer over 15 Minutes, Once, On Thu12/02/23 at 2220, For 1 dose sodium phosphate 20 mmol in sodium chloride 0.9 % 250 mL IVPB (1 source) Start: 12-03-2023 End: 12-09-2023 sodium phosphate 20 mmol in sodium chloride 0.9 % 250 mL IVPB vancomycin 1,500 mg in sodium chloride 0.9 % 500 mL IVPB (10 sources) Start: 11-29-2023 End: 12-09-2023 take 1500 mg intravenously every twelve hours vancomycin 1,500 mg in sodium chloride 0.9 % 500 mL IVPB Infuse 1,500 mg into a venous catheter every 12 (twelve) hours for 10 days. 1 each 11/29/2023 12/09/2023 Discontinued (Stop Taking at Discharge) Start: 11-29-2023 End: 12-09-2023 take 1500 mg intravenously every twelve hours vancomycin 1,500 mg in sodium chloride 0.9 % 500 mL IVPB Infuse 1,500 mg into a venous catheter every 12 (twelve) hours for 10 days. 1 each 11/29/2023 12/09/2023 Suspended Start: 11-29-2023 End: 12-09-2023 take 1500 mg intravenously every twelve hours vancomycin 1,500 mg in sodium chloride 0.9 % 500 mL IVPB Infuse 1,500 mg into a venous catheter every 12 (twelve) hours for 10 days. 1 each 11/29/2023 12/09/2023 Active Problems Active Problems Problem Classification Problem Date Documented Date Episodic/Chronic Acute and unspecified renal failure (19 sources) Acute renal failure syndrome; Translations: [Acute kidney failure, unspecified] Onset: 12-02-2023 12-02-2023 Episodic Asthma (20 sources) Exercise-induced asthma; Translations: [Exercise induced bronchospasm] Onset: 03-07-2022 03-07-2022 Chronic Bacterial infection; unspecified site (4 sources) Mycobacteriosis; Translations: [Mycobacterial infection, unspecified] Onset: 12-30-2023 12-03-2023 Episodic Cancer of breast (20 sources) Infiltrating duct carcinoma of breast; Translations: [Malignant neoplasm of unspecified site of right female breast] Onset: 04-09-2023 04-02-2023 Chronic Cardiac dysrhythmias (20 sources) Cardiac arrhythmia; Translations: [Cardiac arrhythmia, unspecified] Onset: 11-27-2021 03-30-2020 Chronic Cataract (20 sources) Secondary cataract of right eye; Translations: [Unspecified secondary cataract] Onset: 01-31-2022 01-31-2022 Chronic Complication of device; implant or graft (2 sources) Infection of breast implant; Translations: [Infection and inflammatory reaction due to other internal prosthetic devices, implants and grafts, subsequent encounter] 12-14-2023 Episodic Complications of surgical procedures or medical care (18 sources) Deep incisional surgical site infection; Translations: [Infection following a procedure, deep incisional surgical site, initial encounter] Onset: 12-04-2023 12-04-2023 Episodic E Codes: Adverse effects of medical drugs (2 sources) Doxycycline adverse reaction; Translations: [Adverse effect of tetracyclines, initial encounter] 01-25-2024 Episodic Essential hypertension (20 sources) Hypertensive disorder; Translations: [Unspecified essential hypertension] Onset: 12-23-2019 04-06-2023 Chronic Headache; including migraine (4 sources) Migraine 04-06-2023 Chronic Hypertension with complications and secondary hypertension (20 sources) 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; Translations: [Hypertensive chronic kidney disease with stage 1 through stage 4 chronic kidney disease, or unspecified chronic kidney disease] Onset: 05-24-2021 11-27-2021 Chronic Immunizations and screening for infectious disease (1 source) Encounter for screening for human papillomavirus (HPV); Translations: [ENC SCREENING HUMAN PAPILLOMAVIRUS] Onset: 12-29-2021 Episodic Joint disorders and dislocations; trauma-related (20 sources) Derangement of right knee; Translations: [Unspecified internal derangement of right knee] Onset: 11-27-2021 11-27-2021 Chronic Nonmalignant breast conditions (20 sources) Lump in lower inner quadrant of right breast; Translations: [Unspecified lump in the right breast, lower inner quadrant] Onset: 04-28-2023 04-28-2023 Episodic Osteoarthritis (20 sources) Arthritis of left knee; Translations: [Unilateral primary osteoarthritis, left knee] Onset: 11-27-2021 11-27-2021 Chronic Other aftercare (3 sources) Postoperative visit; Translations: [Encounter for other specified surgical aftercare] 12-14-2023 Episodic Other aftercare (2 sources) Encounter for other specified surgical aftercare; Translations: [Encounter for other specified surgical aftercare] Onset: 11-04-2023 Episodic Other aftercare (2 sources) Encounter for therapeutic drug level monitoring; Translations: [Encounter for therapeutic drug level monitoring] Onset: 01-15-2024 Episodic Other circulatory disease (1 source) H/O: artificial organ/tissue; Translations: [Presence of other vascular implants and grafts] Onset: 06-04-2023 Chronic Other eye disorders (1 source) Vitreous degeneration; Translations: [Vitreous degeneration, unspecified eye] Onset: 12-28-2023 Chronic Other eye disorders (9 sources) Hemorrhage of right vitreous body; Translations: [Vitreous hemorrhage, right eye] Onset: 12-30-2023 12-30-2023 Chronic Other injuries and conditions due to external causes (2 sources) Anaphylaxis; Translations: [Anaphylactic shock, unspecified, subsequent encounter] 02-01-2024 Episodic Other nutritional; endocrine; and metabolic disorders (1 source) Obese class I; Translations: [Body mass index (BMI) 30.0-30.9, adult] Onset: 07-14-2022 Chronic Other nutritional; endocrine; and metabolic disorders (12 sources) Obesity; Translations: [Obesity, unspecified] Onset: 07-14-2022 Chronic Other nutritional; endocrine; and metabolic disorders (3 sources) Body mass index 30+ - obesity 04-10-2023 Chronic Other screening for suspected conditions (not mental disorders or infectious disease) (12 sources) Encounter for screening for malignant neoplasm of cervix; Translations: [Encounter for screening mammogram for malignant neoplasm of breast] Onset: 12-13-2021 Episodic Other upper respiratory infections (1 source) Acute upper respiratory infection; Translations: [Acute upper respiratory infection, unspecified] Onset: 07-14-2022 Episodic Residual codes; unclassified (6 sources) Edema; Translations: [Edema] Episodic Residual codes; unclassified (1 source) Pain, unspecified; Translations: [Pain, unspecified] Onset: 04-10-2023 Episodic Residual codes; unclassified (2 sources) Device in situ 06-04-2023 Episodic Residual codes; unclassified (20 sources) History of breast reconstruction; Translations: [Other specified postprocedural states] Onset: 10-28-2023 10-28-2023 Episodic Residual codes; unclassified (3 sources) Bilateral acquired absence of breast; Translations: [Acquired absence of bilateral breasts and nipples] 12-14-2023 Episodic Residual codes; unclassified (2 sources) Acquired absence of bilateral breasts and nipples; Translations: [Acquired absence of bilateral breasts and nipples] Onset: 11-04-2023 Episodic Retinal detachments; defects; vascular occlusion; and retinopathy (9 sources) Retinal tear of right eye; Translations: [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, right eye] Onset: 12-30-2023 12-30-2023 Episodic Skin and subcutaneous tissue infections (3 sources) Cutaneous infectious disease due to Mycobacteria; Translations: [Cutaneous mycobacterial infection] Onset: 12-02-2023 12-08-2023 Episodic Unclassified (1 source) Contact with and (suspected) exposure to covid-19; Translations: [Contact with and (suspected) exposure to covid-19] Unclassified (1 source) Post-op Onset: 12-02-2023 Unclassified (1 source) Consult Onset: 04-28-2023 Unclassified (1 source) Post-op Problem Onset: 12-02-2023 Unclassified (1 source) INVASIVE CARCINOMA RIGHT Onset: 10-28-2023 Past or Other Problems Problem Classification Problem Date Documented Date Episodic/Chronic Cardiac dysrhythmias (20 sources) Palpitations; Translations: [Palpitations] Onset: 11-27-2021 11-27-2021 Episodic Chronic obstructive pulmonary disease and bronchiectasis (1 source) Bronchitis, not specified as acute or chronic Onset: 11-11-2021 Resolved: 11-11-2021 Episodic Deficiency and other anemia (20 sources) Iron deficiency anemia; Translations: [Iron deficiency anemia, unspecified] Onset: 03-07-2022 03-07-2022 Episodic Fluid and electrolyte disorders (20 sources) Hypokalemia; Translations: [Hypopotassemia] Onset: 12-23-2019 11-27-2021 Episodic Mood disorders (20 sources) Mood disorders Onset: 03-07-2022 03-07-2022 Other skin disorders (20 sources) Epidermoid cyst of skin; Translations: [Epidermal cyst] Onset: 11-27-2021 03-30-2020 Episodic Otitis media and related conditions (1 source) Otitis media, unspecified, bilateral Onset: 11-11-2021 Resolved: 11-11-2021 Episodic Ovarian cyst (9 sources) Complex ovarian cyst; Translations: [Other ovarian cyst, unspecified side] Onset: 05-26-2023 05-26-2023 Episodic Residual codes; unclassified (3 sources) Edema, unspecified; Translations: [Edema, unspecified] Onset: 10-14-2022 Episodic Residual codes; unclassified (2 sources) Estrogen receptor positive status [ER+]; Translations: [Estrogen receptor positive status (ER+)] Onset: 04-09-2023 Episodic Residual codes; unclassified (2 sources) Other specified postprocedural states; Translations: [Other specified postprocedural states] Onset: 10-28-2023 Episodic Residual codes; unclassified (2 sources) Localized edema; Translations: [Localized edema] Onset: 08-31-2023 Episodic Sprains and strains (20 sources) Complete tear, knee, anterior cruciate ligament; Translations: [Sprain of anterior cruciate ligament of unspecified knee, initial encounter] Onset: 04-30-2006 11-27-2021 Episodic Unclassified (1 source) Contact with and (suspected) exposure to covid-19 Z20.822 Onset: 11-11-2021 Resolved: 11-11-2021 Unclassified (7 sources) Excision of lipoma 03-30-2020 Unclassified (6 sources) Never smoked tobacco; Translations: [Never a smoker] Urinary tract infections (20 sources) Recurrent urinary tract infection; Translations: [Urinary tract infection, site not specified] Onset: 01-31-2022 01-31-2022 Episodic Results Test Name Value Interpretation Reference Range Facility 36on 02-03-2024 36 Spoke to her Thursday, given that she is on tedizolid and imipenem the amoxicillin unlikely to be helpful. Not uncommon to have strep colonization in adults, if she is still having pharyngeal pain and discomfort it may be viral. [facility] 36on 02-02-2024 36 Patient states that amoxicillin is not working & strep is getting worse. She is asking is you would call her in a stronger antibiotic/please advise Patient is scheduled 02/15 at 4:00 pm. Calling [facility] for weekly labs. Patient was informed with the imipenem & tedizolid should take care of any strep that patient would have, it could also be viral but would not know without seeing patient./per Dr. Lui Left patient a voice mail X 1./lss [facility] Telephoneon 02-02-2024 Telephone [phone] Ike Jones Yumi 1970 F Date Provider Department Center 02/02/2024 GINO HUMPHREY [facility] Anthony Heal Family History Adopted: Yes Problem Relation Age of Onset Heart attack Father Family Status - Relation Status Age at Father [facility] 36on 02-01-2024 36 Patient called stating that over the weekend she tested positive for strep and was prescribed Amoxicillin. [facility] 3601-26-2024 36 RN called to request most recent labs be faxed to [facility]. Fax number confirmed [facility] 36on 01-25-2024 36 I called they will call me back [facility] 36 Dr Solis called and wanted to talk regarding pt as soon as possible. Office - [phone] Cell- [phone] [facility] Office Visiton 01-15-2024 Follow-up visit [id number] Ike Jones 1970 Date Provider Department Center 01/15/2024 HER[facility] VITAL [facility] Anthony Heal Family History Adopted: Yes Problem Relation Age of Onset Heart attack Father Family Status - Relation Status Age at Father Level of Service:56239 ME OFFICE/OUTPATIENT ESTABLISHED MOD MDM 30 MIN [facility] 36on 01-12-2024 36 Patients specialty pharmacy is not able to order the tedizolid (Sivextro) do the the shortage of the medication. I will call our [facility] to see if we can get it in. Rx was called in to the [facility] they are able to fill the prescription. [facility] 36on 01-08-2024 36 Patient called stating that her IV antibiotics will be completed on 01/14 and that you were possibly going to do another IV antibiotic route. I saw you ordered Tedizolid and was going to fax that to her [facility]. Did you want any other IV antibiotics? Please Advise [facility] Orders Onlyon 01-04-2024 Orders Only [id number] Ike Jones 1970 F Date Provider Department Center 01/04/2024 [facility] Anthony Heal Family History Adopted: Yes Problem Relation Age of Onset Heart attack Father Family Status - Relation Status Age at Father [facility] Orders Onlyon 01-01-2024 Orders Only [id number] Ike Jones Yumi 1970 F Date Provider Department Center 01/01/2024 [facility] Anthony Heal Family History Adopted: Yes Problem Relation Age of Onset Heart attack Father Family Status - Relation Status Age at Father [facility] 37on 12-30-2023 37 Keep taking current antibiotics for now. 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 We will reach out to your Oncologist about when to restart radiation therapy. We don't anticipate deferring it at this time. Follow-up in about 1 month [facility] Follow-Upon 12-30-2023 Follow-Up [id number] Ike Jones Yumi 1970 F Date Provider Department Center 12/30/2023 [id number] LANTIGUA [facility] Anthony Heal Family History Adopted: Yes Problem Relation Age of Onset Heart attack Father Family Status - Relation Status Age at Father Level of Service:83620 ME OFFICE/OUTPATIENT ESTABLISHED MOD MDM 30 MIN () Reason for Visit and Comments: Invasive ductal carcinoma [Other] [facility] ED Clinical Summaryon 2023 ED Clinical Summary ED Clinical Summary [address] [address] ED Clinical Summary Person Information Name: IKE JONES[place] Age: 53 Years : 1970 Sex: Female Language: Central African PCP: RANDY CALLE DO Marital Status: Phone: [phone] Visit Id: Visit Reason: Eye problem; NO VISION IN RIGHT EYE Speciality: Acuity: 3 Enc Type: Emergency Med Service: Emergency Arrival: 12/28/2023 20:23:14 Discharge: 12/28/2023 21:34:33 LOS: 000 01:11 Checkin: 12/28/2023 20:23:14 Checkout: 12/28/2023 21:34:33 Dispo Type: Home (Routine DC) EVENTS: Event Name Event Status Request Date/Time Start Date/Time Complete Date/Time Arrive Complete 12/28/2023 20:23:14 12/28/2023 20:23:14 12/28/2023 20:23:14 Document Home Meds Request 12/28/2023 20:23:14 Triage Complete 12/28/2023 20:23:14 12/28/2023 20:33:44 12/28/2023 20:33:44 Registration Complete 12/28/2023 20:29:47 12/28/2023 20:29:47 12/28/2023 20:29:47 Reg Complete Request 12/28/2023 20:29:47 Reg Bed Request Complete 12/28/2023 20:29:47 12/28/2023 20:29:47 12/28/2023 20:29:47 Bed Assign Complete 12/28/2023 20:34:04 12/28/2023 20:34:04 12/28/2023 20:34:04 Dr Exam Complete 12/28/2023 20:34:04 12/28/2023 20:35:54 12/28/2023 20:35:54 RN Exam Complete 12/28/2023 20:34:04 12/28/2023 20:50:04 12/28/2023 20:50:04 Registration Request 12/28/2023 20:35:54 Dr Exam Complete 12/28/2023 20:40:05 12/28/2023 20:40:05 12/28/2023 20:40:05 Discharge Complete 12/28/2023 21:28:15 12/28/2023 21:34:41 12/28/2023 21:34:41 Transfer Complete 12/28/2023 21:34:41 12/28/2023 21:34:41 12/28/2023 21:34:41 ADDRESS: [facility] [address] [place] [phone] PHYS DOC NOTES: MEDICAL INFORMATION: Prescriptions Given: Medications to Continue with No Changes Other Medications chlorthalidone as directed. cyclobenzaprine as directed. lisinopril (lisinopril 20 mg Tab) 1 Tablets By Mouth every day. metoprolol as directed. spironolactone as directed. trazodone (traZODONE 50 mg Tab) By Mouth 2 times a day. PATIENT EDUCATION INFORMATION: Instructions: Vitreous Detachment Follow up: With: Address: When: Georgiana Justice [facility] 3, [address] [facility], [facility] [address] [place] [address] Business (1) In 1 day 12/29/2023 Comments: Please call first in the morning for same-day appointment With: Address: When: RANDY CALLE [address], [place] [phone] Business (1) In 3 days DIAGNOSIS: Posterior vitreous detachment Normal [facility] ED Note-Physicianon 12-28-19 24 ED Note-Physician ED Note-Physician Basic Information Time Seen: Rusty Horton DO 12/28/2023 20:35 Chief Complaint PT arrives to ed with c/o not being able to see out of right eye. Pt currently is being treated for cancer and being treated with multiple antibiotics. History of Present Illness HPI: Patient is a 53-year-old female with past medical history of breast cancer, migraines, hypertension who presents the ED for right eye vision changes. Patient states that yesterday night this for started with a lot of flashes and then progressed to a large amount of floaters. She states that this intensified and now today she is feeling like there is a slight hazing of the vision in her right eye. She states this is throughout all clark of vision in the right eye. She denies any focal areas of loss of vision. She denies any pain in the head or eye. She has never had anything like this in the past. ROS: Pertinent review of systems conducted and is negative except as noted above. Physical exam: General: nontoxic appearing and in no distress Eyes: Extraocular movements intact. No visual field deficits. Pupils equal and reactive. No gross abnormality of the retina on exam. Neuro: awake and alert. Cranial nerves II through XII are intact. Gross motor and sensation to all 4 extremities intact. Neck: supple, trachea midline Card: Heart regular rate and rhythm no murmur Resp: Lungs clear to auscultation no wheeze or rhonchi Physical Exam Vitals & Measurements T: 36.8 ???C(Tympanic) HR: 95(Peripheral) RR: 16 BP: 154/86 SpO2: 97% HT: 180.34 cm WT: 98.4 kg BMI: 30.26 Medical Decision Making MEDICAL DECISION MAKING Number and Complexity of Problems Differential Diagnosis: [] [facility] Data External documents reviewed: N/A My EKG interpretation: Noted in chart if applicable My CT interpretation: N/A My X-ray interpretation: Noted in chart if applicable My Ultrasound interpretation: N/A Decision rules/scores evaluated: N/A Discussed with: N/A Treatment and Disposition ED Course: Patient is well-appearing in no distress. No focal logical deficits. I do not suspect stroke at this time. She describes what I believed to be a posterior vitreous detachment. She has no focal deficits in her visual clark that I feel are concerning for acute retinal detachment. She has no pain and I do not suspect glaucoma or ocular artery occlusion. I discussed the likely diagnosis of vitreous detachment with the patient at bedside. We will give her ophthalmology and have her call first thing in the morning for appointment tomorrow for follow-up. Patient was discharged stable condition. Shared decision making: As above Code status: N/A Assessment/Plan Posterior vitreous detachment (H43.819: Vitreous degeneration, unspecified eye) Disposition Plan Discharge Prescription List Prescriptions No active prescription medications Follow-up With When Contact Information Georgiana Justice In 1 day 12/29/2023 EDT [facility] 3 [address] [facility] [address] [place] [address]- Business (1) Additional Instructions: Please call first in the morning for same-day appointment RANDY CALLE In 3 days [address] [place] [address] Business (1) Additional Instructions: Patient Education Vitreous Detachment Problem List/Past Medical History Ongoing BMI 30.0-30.9,adult Breast cancer of lower-inner quadrant of right female breast Dysrhythmia, cardiac Epidermal cyst Hypertensive disorder Migraines Obesity Port-A-Cath in place Historical Acute kidney injury Breast cancer Cardiac dysrhythmia Excision of lipoma Hypertension Procedure/Surgical History Abdominal hysterectomy, Biopsy of breast, Biopsy of breast, Core needle biopsy of breast using ultrasound (US) guidance, Cystoscopy, Insertion of implantable venous access port, Lipoma of back, Mastectomy, Meniscectomy, Repair of anterior cruciate ligament of knee joint, Tonsillectomy. Medications Inpatient No active inpatient medications Home chlorthalidone cyclobenzaprine lisinopril 20 mg Tab, 20 mg= 1 tab(s), Oral, Daily metoprolol spironolactone traZODONE 50 mg Tab, Oral, BID Allergies DAPTOmycin (Flushing) Demerol (Rash) doxycycline (Rash) tigecycline (Vomit, Rash) Social History Alcohol - Denies Alcohol Use, 03/30/2020 Substance Abuse - Denies Substance Abuse, 03/30/2020 Tobacco Never (less than 100 in lifetime) Tobacco Use:. Never Smokeless Tobacco Use:., 06/04/2023 Family History Patient was adopted Family history is negative Lab Results No qualifying data available. Diagnostic Results No qualifying data available. Normal [facility] Comment on above: Result Comment: Elec tronically Signed By: Rusty Horton DO\.br\Date and Time Signed: 12/28/23 21:30 EDT ED Patient Summaryon 024 ED Patient Summary ED Patient Summary [address] [address] Patient Discharge Instructions Person Information Name: IKE JONES Age: 53 Years Arrival Date: 12/28/2023 20:23:14 Discharge Diagnosis: Posterior vitreous detachment Primary Care Physician: RANDY CALLE DO Provider Information Primary Provider: Rusty Horton DO Advanced Analytical Data Scientist:None The exam and treatment you received in the Emergency Department were for an urgent problem and are not intended as complete care. It is important that you follow up with a doctor, nurse practitioner, or physician???s unit assistant for ongoing care. If your symptoms become worse or you do not improve as expected and you are unable to reach your usual health care provider, you should return to the Emergency Department. We are available 24 hours a day. IKE JONES has been given the following list of patient education materials, prescriptions and follow-up instructions: Follow-up Instructions: With: Address: When: Georgiana Justice [facility] 3, [address] [facility] [address] [place] [address] Business (1) In 1 day 12/29/2023 Comments: Please call first in the morning for same-day appointment With: Address: When: RANDY CALLE [address], [place] [phone] Business (1) In 3 days In the event that this physician does not participate in your insurance network, please consult with your insurance company to find a nearby participating provider. Patient Education Materials: Vitreous Detachment A MESSAGE TO ALL PATIENTS REGARDING OPIOIDS PRESCRIPTION OPIOIDS: WHAT YOU NEED TO KNOW Prescription opioids can be used to help relieve [id number] pain and are often prescribed following a surgery or injury, or for certain health conditions. These medications can be an important part of the treatment but also come with serious risks. It is important to work with your healthcare provider to make sure you are getting the safest, most effective care. WHAT ARE THE RISKS AND SIDE EFFECTS OF OPIOID USE? Prescription opioids carry serious risks of addiction and overdose, especially with prolonged use. An opioid overdose, often marked by slowed breathing, can cause sudden . The use of prescription opioids can have a number of side effects as well, even when taken as directed: ??? Tolerance???meaning you might need to take more of the medication for the same pain relief ??? Physical dependence???meaning you have symptoms of withdrawal when a medication is stopped ??? Increased sensitivity to pain ??? Constipation ??? Nausea, vomiting, and dry mouth ??? Sleepiness and dizziness ??? Confusion ??? Depression ??? Low levels of testosterone that can result in lower sex drive, energy, and strength ??? Itching and sweating RISKS ARE GREATER WITH: ??? History of drug misuse, substance use disorder, or overdose ??? Mental health conditions (such as depression or anxiety) ??? Sleep apnea ??? Older age (65 years and older) ??? Avoid alcohol while taking prescription opioids. Also, unless specifically advised by your health care provider, medications to avoid include: ??? Benzodiazepines (such as Xanax or Valium) ??? Muscle relaxants (such as Soma or Flexeril) ??? Hypnotics (such as Ambien or Lunesta) ??? Other prescription opioids KNOW YOUR OPTIONS Talk to your health care provider about ways to manage your pain that don???t involve prescription opioids. Some of these options may actually work better and have fewer risks and side effects. Options may include: ??? Pain relievers such as acetaminophen, ibuprofen, and naproxen ??? Some medication that are also used for depression or seizures ??? Physical therapy and exercise ??? Cognitive behavioral therapy, a psychological, goal-directed approach, in which patients learn how to modify physical, behavioral, and emotional triggers of pain and stress. IF YOU ARE PRESCRIBED OPIOIDS FOR PAIN: ??? Never take opioids in greater amounts or more often than prescribed. ??? Follow up with your primary health care provider. o Work together to create a plan on how to manage your pain. o Talk about ways to help manage your pain that don???t involve prescription opioids. o Talk about any and all concerns and side effects. ??? Help prevent misuse and abuse o Never sell or share prescription opioids. o Never use another person???s prescription opioids. ??? Store prescription opioids in a secure place and out of reach of others (this may include visitors, children, friends, and family). ??? Safely dispose of unused prescription opioids: Find your community drug take-back program or your pharmacy mail-back program, or flush them down the toilet, following guidance from the Food and Drug Administration (www.fda.gov (more content not included)... Normal [facility] Office Visiton 12-11-2023 Follow-up visit [id number] Ike Jones 1970 F Date Provider Department Center 12/11/2023 NicoletteSURENDRASANDRITA [facility] Anthony Heal Family History Adopted: Yes Problem Relation Age of Onset Heart attack Father Family Status - Relation Status Age at Father Level of Service:65909 ME OFFICE/OUTPATIENT NEW HIGH MDM 60 MINUTES Normal [facility] CBC AND AUTO DIFFon 12-09-19 24 ABSOLUTE BASOPHIL 0.0 X10E9/L Normal 0.0-0.2 [facility] Comment on above: Performed By: #### B MP, CBC #### [facility] ([id number]) [address] [place] [address] #### 6793-4 #### [facility] ([id number]) [address] [place] [address] ABSOLUTE NEUTROPHIL 3.6 X10E9/L Normal 1.5-6.6 [facility] Comment on above: Performed By: #### B MP, CBC #### [facility] ([id number]) [address] [place] [address] #### 6793-4 #### [facility] ([id number]) [address] [place] [address] Basophils/100 WBC (Bld) 0.2 % Normal P [facility] Comment on above: Performed By: #### B MP, CBC #### [facility] ([id number]) [address] [place] [address] #### 6793-4 #### [facility] ([id number]) [address] [place] [address] Eosinophils (Bld) [#/Vol] 0.0 10*3/uL Normal 0.0-0.4 [facility] Comment on above: Performed By: #### B MP, CBC #### [facility] ([id number]) [address] [place] [address] #### 6793-4 #### [facility] ([id number]) [address] [place] [address] Eosinophils/100 WBC (Bld) 0.0 % Normal [facility] Comment on above: Performed By: #### B MP, CBC #### [facility] ([id number]) [address] [place] [address] #### 6793-4 #### [facility] ([id number]) [address] [place] [address] Erythrocyte distribution width (RBC) [Ratio] 14.6 % Normal 11.5-15.0 [facility] Comment on above: Performed By: #### B MP, CBC #### [facility] ([id number]) [address] [place] [address] #### 6793-4 #### [facility] ([id number]) [address] [place] [address] Hematocrit (Bld) [Volume fraction] 22.0 % Low 35-47 [facility] Comment on above: Performed By: #### B MP, CBC #### [facility] ([id number]) [address] [place] [address] #### 6793-4 #### [facility] ([id number]) [address] [place] [address] Hemoglobin (Bld) [Mass/Vol] 7.4 g/dL Low 11.7-15.5 [facility] Comment on above: Performed By: #### B MP, CBC #### [facility] ([id number]) [address] [place] [address] #### 6793-4 #### [facility] ([id number]) [address] [place] [address] Lymphocytes (Bld) [#/Vol] 0.5 10*3/uL Low 1.0-3.5 [facility] Comment on above: Performed By: #### B MP, CBC #### [facility] ([id number]) [address] [place] [address] #### 6793-4 #### [facility] ([id number]) [address] [place] [address] Lymphocytes/100 WBC (Bld) 12.0 % Normal [facility] Comment on above: Performed By: #### Willis MP, CBC #### [facility] ([id number]) [address] [place] [address] #### 6793-4 #### [facility] ([id number]) [address] [place] [address] MCH (RBC) [Entitic mass] 29.9 pg Normal 27-34 [facility] Comment on above: Performed By: #### B MP, CBC #### [facility] ([id number]) [address] [place] [address] #### 6793-4 #### [facility] ([id number]) [address] [place] [address] MCHC (RBC) [Mass/Vol] 33.8 g/dL Normal 32-36 [facility] Comment on above: Performed By: #### B MP, CBC #### [facility] ([id number]) [address] [place] [address] #### 6793-4 #### [facility] ([id number]) [address] [place] [address] MCV (RBC) [Entitic vol] 89 fL Normal 80-[address] [facility] Comment on above: Performed By: #### B MP, CBC #### [facility] ([id number]) [address] [place] [address] #### 6793-4 #### [facility] ([id number]) [address] [facility], [address] [place] [address] Monocytes (Bld) [#/Vol] 0.2 10*3/uL Normal 0-0.9 [facility] Comment on above: Performed By: #### B MP, CBC #### [facility] ([id number]) [address] [place] [address] #### 6793-4 #### [facility] ([id number]) [address] [place] [address] Monocytes/100 WBC (Bld) 4.6 % Normal [facility] Comment on above: Performed By: #### B MP, CBC #### [facility] ([id number]) [address] [place] [address] #### 6793-4 #### [facility] ([id number]) [address] [place] [address], [address] [place] [address] Neutrophils/100 WBC (Bld) 83.2 % Normal [facility] Comment on above: Performed By: #### B MP, CBC #### [facility] ([id number]) [address] [place] [address] #### 6793-4 #### [facility] ([id number]) [address] [place] [address] Platelet mean volume (Bld) [Entitic vol] 7.6 fL Normal 7-12 [facility] Comment on above: Performed By: #### B MP, CBC #### [facility] ([id number]) [address] [place] [address] #### 6793-4 #### [facility] ([id number]) [address] [place] [address], [facility] [address] [place] [address] Platelets (Bld) [#/Vol] 153 10*3/uL Normal 150-450 [facility] Comment on above: Performed By: #### B MP, CBC #### [facility] ([id number]) [address] [place] [address] #### 6793-4 #### [facility] ([id number]) [address] [address] RBC COUNT 2.48 X10E12/L Low 3.80-5.20 [facility] Comment on above: Performed By: #### B MP, CBC #### [facility] ([id number]) [address] [place] [address] #### 6793-4 #### [facility] ([id number]) [address] [address] WBC (Bld) [#/Vol] 4.3 10*3/uL Normal 4.0-11.0 [facility] Comment on above: Performed By: #### Willis MP, CBC #### [facility] ([id number]) [address] [place] [address] #### 6793-4 #### [facility] ([id number]) [address] [address] CBC auto differentialon 10-0 -2023 Basophils (Bld) [#/Vol] 0.0 10*3/uL [facility] Basophils/100 WBC (Bld) 0.2 % P [facility] Eosinophils (Bld) [#/Vol] 0.0 10*3/uL [facility] Eosinophils/100 WBC (Bld) 0.0 % [facility] Erythrocyte distribution width (RBC) [Ratio] 14.6 % 11.5 - 15.0 % [facility] Hematocrit (Bld) [Volume fraction] 22.0 % Low 35 - 47 % [facility] Hemoglobin (Bld) [Mass/Vol] 7.4 g/dL Low 11.7 - 15.5 g/dL [facility] Interpretation and review of laboratory results Abnormal [facility] Lymphocytes (Bld) [#/Vol] 0.5 10*3/uL Low [facility] Lymphocytes/100 WBC (Bld) 12.0 % [facility] MCH (RBC) [Entitic mass] 29.9 pg 27 - 34 pg [facility] MCHC (RBC) [Mass/Vol] 33.8 g/dL 32 - 3 6 g/dL [facility] MCV (RBC) [Entitic vol] 89 fL 80 - 100 fL [facility] Monocytes (Bld) [#/Vol] 0.2 10*3/uL [facility] Monocytes/100 WBC (Bld) 4.6 % P [facility] Neutrophils (Bld) [#/Vol] 3.6 10*3/uL [facility] Neutrophils/100 WBC (Bld) 83.2 % [facility] Platelet mean volume (Bld) [Entitic vol] 7.6 fL 7 - 12 fL [facility] Platelets (Bld) [#/Vol] 153 10*3/uL [facility] RBC (Bld) [#/Vol] 2.48 10*6/uL Low [facility] WBC corrected for nucl RBC Auto (Bld) [#/Vol] 4.3 [facility] COMPREHENSIVE METABOLIC PANE [place] 12-09-2023 Albumin [Mass/Vol] 3.2 g/dL Normal 3.2-5.3 [facility] Comment on above: Performed By: #### B MP, CBC #### [facility] ([id number]) [address] [place] [address] #### 6793-4 #### [facility] ([id number]) [address] [place] [address], [address] [place] [address] ALP [Catalytic activity/Vol] 66 U/L Normal 39-130 [facility] Comment on above: Performed By: #### B MP, CBC #### [facility] ([id number]) [address] [place] [address] 91030 #### 6793-4 #### [facility] ([id number]) [address], [address] [place] [address] ALT [Catalytic activity/Vol] 30 U/L Normal 0-31 [facility] Comment on above: Performed By: #### B ADARSH, CBC #### [facility] ([id number]) [address] [place] [address] 77132 #### 6793-4 #### [facility] ([id number]) [address], [address] [place] [address] Anion gap [Moles/Vol] 7 mmol/L Normal 5-15 [facility] Comment on above: Performed By: #### Willis ALTAMIRANO, CBC #### [facility] ([id number]) [address] [place] [address] 47079 #### 6793-4 #### [facility] ([id number]) [address] [facility] [facility] [place] [address] AST [Catalytic activity/Vol] 39 U/L Normal 0-41 [facility] Comment on above: Performed By: #### Willis ALTAMIRANO, CBC #### [facility] ([id number]) [address] [place] [address] 53400 #### 6793-4 #### [facility] ([id number]) [address], [address] [place] [address] Bilirubin [Mass/Vol] 0.6 mg/dL Normal 0.3-1.2 [facility] Comment on above: Performed By: #### Willis ALTAMIRANO, CBC #### [facility] ([id number]) [address] [place] [address] 77345 #### 6793-4 #### [facility] ([id number]) [address], [address] [place] [address] Calcium [Mass/Vol] 8.7 mg/dL Normal 8.5-10.5 [facility] Comment on above: Performed By: #### B MP, CBC #### [facility] ([id number]) [address] [place] [address] 72392 #### 6793-4 #### [facility] ([id number]) [address], [address] [place] [address] Chloride [Moles/Vol] 106 mmol/L Normal 98-109 [facility] Comment on above: Performed By: #### B MP, CBC #### [facility] ([id number]) [address] [place] [address] 75591 #### 6793-4 #### [facility] ([id number]) [address] [place] [address] CO2 [Moles/Vol] 26 mmol/L Normal 22-32 [facility] Comment on above: Performed By: #### B MP, CBC #### [facility] ([id number]) [address] [place] [address] 18339 #### 6793-4 #### [facility] ([id number]) [address] [place] [address] Creatinine [Mass/Vol] 1.50 mg/dL High 0.40-1.00 [facility] Comment on above: Result Comment: METH OD TRACEABLE TO IDMS STANDARD Performed By: #### B MP, CBC #### [facility] ([id number]) [address] [place] [address] 28453 #### 6793-4 #### [facility] ([id number]) [address] [facility] [facility] [address] [place] [address] GFR/1.73 sq M.predicted among non-blacks MDRD (S/P/Bld) [Vol rate/Area] 41 mL/min/{1.73_m2} Low >59 [facility] Comment on above: Result Comment: Reported eGFR is based on the CKD-EPI 2020 equation that does not use a race coefficient. Performed By: #### B MP, CBC #### [facility] ([id number]) [address] [place] [address] 47597 #### 6793-4 #### [facility] ([id number]) [address] [place] [address] Glucose [Mass/Vol] 160 mg/dL High 65-99 [facility] Comment on above: Performed By: #### B MP, CBC #### [facility] ([id number]) [address] [place] [address] 19555 #### 6793-4 #### [facility] ([id number]) [address], [address] [place] [address] Potassium [Moles/Vol] 3.8 mmol/L Normal 3.5-5.0 [facility] Comment on above: Performed By: #### Willis MP, CBC #### [facility] ([id number]) [address] [place] [address] 78112 #### 6793-4 #### [facility] ([id number]) [address], [address] [place] [address] Protein [Mass/Vol] 5.9 g/dL Low 6.0-8.0 [facility] Comment on above: Performed By: #### Willis MP, CBC #### [facility] ([id number]) [address] [place] [address] 82798 #### 6793-4 #### [facility] ([id number]) [address], [address] [place] [address] Sodium [Moles/Vol] 139 mmol/L Normal 134-146 [facility] Comment on above: Performed By: #### Willis MP, CBC #### [facility] ([id number]) [address] [place] [address] 73411 #### 6793-4 #### [facility] ([id number]) [address] [address] [place] [address] Urea nitrogen [Mass/Vol] 23 mg/dL Normal 5-23 [facility] Comment on above: Performed By: #### B MP, CBC #### [facility] ([id number]) [address] [id number] #### 6793-4 #### [facility] ([id number]) [address] [place] [address] Comprehensive metabolic pane [place] 12-09-2023 Albumin [Mass/Vol] 3.2 g/dL 3.2 - 5.3 g/dL [facility] ALP [Catalytic activity/Vol] 66 U/L 39 - 130 U/L [facility] ALT No additional P-5'-P [Catalytic activity/Vol] 30 U/L 0 - 31 U/L [facility] Anion gap [Moles/Vol] 7 mmol/L 5 - 15 mmol/L [facility] AST [Catalytic activity/Vol] 39 U/L 0 - 41 U/L [facility] Bilirubin [Mass/Vol] 0.6 mg/dL 0.3 - 1 .2 mg/dL [facility] Calcium [Mass/Vol] 8.7 mg/dL 8.5 - 10. 5 mg/dL [facility] Chloride [Moles/Vol] 106 mmol/L 98 - 10 9 mmol/L [facility] CO2 [Moles/Vol] 26 mmol/L 22 - 32 mmol/L [facility] Creatinine [Mass/Vol] 1.50 mg/dL High 0.40 - 1.00 mg/dL [facility] Comment on above: METHOD TRACEABLE TO IDUT STANDARD eGFR (CKD-EPI)non-race dependent 41 Low - PINF [facility] Comment on above: Reported eGFR is based on the CKD-EPI 2020 equation that does not use a race coefficient. Glucose [Mass/Vol] 160 mg/dL High 65 - 99 mg/dL [facility] Interpretation and review of laboratory results Abnormal [facility] Potassium [Moles/Vol] 3.8 mmol/L 3.5 - 5.0 mmol/L [facility] Protein [Mass/Vol] 5.9 g/dL Low 6.0 - 8.0 g/dL [facility] Sodium [Moles/Vol] 139 mmol/L 134 - 146 mmol/L [facility] Urea nitrogen [Mass/Vol] 23 mg/dL 5 - 23 mg/dL [facility] MAGNESIUMon 12-09-2023 Magnesium [Mass/Vol] 1.8 mg/dL Normal 1.8-2.6 [facility] Comment on above: Performed By: #### B MP, CBC #### [facility] ([id number]) [address] [place] [address] #### 6793-4 #### [facility] ([id number]) [address] [address], [address] [place] [address] Magnesiumon 12-09-2023 Magnesium [Mass/Vol] 1.8 mg/dL 1.8 - 2 .6 mg/dL [facility] No Panel Informationon 12-08 [facility] PHOSPHORUSon 12-09-2023 Phosphate [Mass/Vol] 3.7 mg/dL Normal 2.4-4.9 [facility] Comment on above: Performed By: #### B MP, CBC #### [facility] ([id number]) [address] [place] [address] #### 6793-4 #### [facility] ([id number]) [address] [place] [address] Phosphoruson 12-09-2023 Phosphate [Mass/Vol] 3.7 mg/dL 2.4 - 4 .9 mg/dL [facility] Bacteria identified Aer cx N om (Bld)on 12-08-2023 Service comment (Unsp spec) [Interp] SUBOPTIMAL VOLUME OF BLOOD COLLECTED, RESULTS MAY BE AFFECTED. [facility] Service comment (Unsp spec) [Interp] NO GROWTH 5 DAYS [facility] Service comment (Unsp spec) [Interp] SUBOPTIMAL VOLUME OF BLOOD COLLECTED, RESULTS MAY BE AFFECTED. [facility] Service comment (Unsp spec) [Interp] NO GROWTH 5 DAYS [facility] CBC AND AUTO DIFFon 12-08-19 24 ABSOLUTE BASOPHIL 0.0 X10E9/L Normal 0.0-0.2 [facility] Comment on above: Performed By: #### B MP, CBC #### [facility] ([id number]) [address] [place] [address] 60887 #### 6793-4 #### [facility] ([id number]) [address], [address] [place] [address] Basophils/100 WBC (Bld) 1.0 % Normal [facility] Comment on above: Performed By: #### B MP, CBC #### [facility] ([id number]) [address] [place] [address] 78665 #### 6793-4 #### [facility] ([id number]) [address], [address] [place] [address] Eosinophils (Bld) [#/Vol] 0.2 10*3/uL Normal 0.0-0.4 [facility] Comment on above: Performed By: #### B MP, CBC #### [facility] ([id number]) [address] [place] [address] 05719 #### 6793-4 #### [facility] ([id number]) [address], [address] [place] [address] Eosinophils/100 WBC (Bld) 7.0 % Normal [facility] Comment on above: Performed By: #### B MP, CBC #### [facility] ([id number]) [address] [place] [address] 04638 #### 6793-4 #### [facility] ([id number]) [address], [address] [place] [address] Erythrocyte distribution width (RBC) [Ratio] 14.4 % Normal 11.5-15.0 [facility] Comment on above: Performed By: #### B MP, CBC #### [facility] ([id number]) [address] [place] [address] 57322 #### 6793-4 #### [facility] ([id number]) [address], [address] [place] [address] Hematocrit (Bld) [Volume fraction] 23.1 % Low 35-47 [facility] Comment on above: Performed By: #### B MP, CBC #### [facility] ([id number]) [address] [place] [address] 79570 #### 6793-4 #### [facility] ([id number]) [address], [address] [place] [address] Hemoglobin (Bld) [Mass/Vol] 8.1 g/dL Low 11.7-15.5 [facility] Comment on above: Performed By: #### B MP, CBC #### [facility] ([id number]) [address] [place] [address] 97086 #### 6793-4 #### [facility] ([id number]) [address], [address] [place] [address] Lymphocytes (Bld) [#/Vol] 0.4 10*3/uL Low 1.0-3.5 [facility] Comment on above: Performed By: #### B MP, CBC #### [facility] ([id number]) [address] [place] [address] 55002 #### 6793-4 #### [facility] ([id number]) [address], [address] [place] [address] Lymphocytes/100 WBC (Bld) 14.0 % Normal [facility] Comment on above: Performed By: #### B MP, CBC #### [facility] ([id number]) [address] [place] [address] 87358 #### 6793-4 #### [facility] ([id number]) [address], [address] [place] [address] MCH (RBC) [Entitic mass] 31.1 pg Normal 27-34 [facility] Comment on above: Performed By: #### Willis MP, CBC #### [facility] ([id number]) [address] [place] [address] #### 6793-4 #### [facility] ([id number]) [address], [address] [place] [address] MCHC (RBC) [Mass/Vol] 35.1 g/dL Normal 32-36 [facility] Comment on above: Performed By: #### Willis ALTAMIRANO, CBC #### [facility] ([id number]) [address] [place] [address] #### 6793-4 #### [facility] ([id number]) [address], [address] [place] [address] MCV (RBC) [Entitic vol] 89 fL Normal 80-[address] [facility] Comment on above: Performed By: #### Willis MP, CBC #### [facility] ([id number]) [address] [place] [address] 91203 #### 6793-4 #### [facility] ([id number]) [address], [address] [place] [address] Monocytes (Bld) [#/Vol] 0.3 10*3/uL Normal 0-0.9 [facility] Comment on above: Performed By: #### Willis MP, CBC #### [facility] ([id number]) [address] [place] [address] 51498 #### 6793-4 #### [facility] ([id number]) [address], [address] [place] [address] Monocytes/100 WBC (Bld) 9.0 % Normal P [facility] Comment on above: Performed By: #### B MP, CBC #### [facility] ([id number]) [address] [place] [address] 83283 #### 6793-4 #### [facility] ([id number]) [address], [address] [place] [address] Neutrophils (Bld) [#/Vol] 2.0 10*3/uL Normal 1.5-6.6 [facility] Comment on above: Performed By: #### B MP, CBC #### [facility] ([id number]) [address] [place] [address] 38937 #### 6793-4 #### [facility] ([id number]) [address], [address] [address] Platelet mean volume (Bld) [Entitic vol] 7.5 fL Normal 7-12 [facility] Comment on above: Performed By: #### B MP, CBC #### [facility] ([id number]) [address] [place] [address] 17842 #### 6793-4 #### [facility] ([id number]) [address] [address] Platelets (Bld) [#/Vol] 147 10*3/uL Low 150-450 [facility] Comment on above: Performed By: #### B MP, CBC #### [facility] ([id number]) [address] [place] [address] 14931 #### 6793-4 #### [facility] ([id number]) [address], [address] [address] RBC COUNT 2.61 X10E12/L Low 3.80-5.20 [facility] Comment on above: Performed By: #### B MP, CBC #### [facility] ([id number]) [address] [place] [address] 81546 #### 6793-4 #### [facility] ([id number]) [address] [place] [address] RBC morphology finding Nom (Bld) REVIEWED Normal [facility] Comment on above: Performed By: #### B MP, CBC #### [facility] ([id number]) [address] [place] [address] 19928 #### 6793-4 #### [facility] ([id number]) [address] [facility] [facility] [address] [place] [address] SEG NEUTROPHIL 69.0 % Normal [facility] Comment on above: Performed By: #### B MP, CBC #### [facility] ([id number]) [address] [place] [address] 89733 #### 6793-4 #### [facility] ([id number]) [address] [facility] [address] [place] [address] WBC (Bld) [#/Vol] 2.9 10*3/uL Low 4.0-11.0 [facility] Comment on above: Performed By: #### B MP, CBC #### [facility] ([id number]) [address] [place] [address] 84240 #### 6793-4 #### [facility] ([id number]) [address], [address] [place] [address] CBC auto differentialon 10-0 8-2023 Basophils (Bld) [#/Vol] 0.0 10*3/uL [facility] Basophils/100 WBC (Bld) 1.0 % [facility] Eosinophils (Bld) [#/Vol] 0.2 10*3/uL [facility] Eosinophils/100 WBC (Bld) 7.0 % [facility] Erythrocyte distribution width (RBC) [Ratio] 14.4 % 11.5 - 15.0 % [facility] Hematocrit (Bld) [Volume fraction] 23.1 % Low 35 - 47 % [facility] Hemoglobin (Bld) [Mass/Vol] 8.1 g/dL Low 11.7 - 15.5 g/dL [facility] Interpretation and review of laboratory results Abnormal [facility] Lymphocytes (Bld) [#/Vol] 0.4 10*3/uL Low [facility] Lymphocytes/100 WBC (Bld) 14.0 % [facility] MCH (RBC) [Entitic mass] 31.1 pg 27 - 34 pg [facility] MCHC (RBC) [Mass/Vol] 35.1 g/dL 32 - 3 6 g/dL [facility] MCV (RBC) [Entitic vol] 89 fL 80 - 100 fL [facility] Monocytes (Bld) [#/Vol] 0.3 10*3/uL [facility] Monocytes/100 WBC (Bld) 9.0 % P [facility] Neutrophils (Bld) [#/Vol] 2.0 10*3/uL [facility] Platelet mean volume (Bld) [Entitic vol] 7.5 fL 7 - 12 fL [facility] Platelets (Bld) [#/Vol] 147 10*3/uL Low [facility] Polymorphonuclear cells/100 WBC (Bld) REVIEWED [facility] RBC (Bld) [#/Vol] 2.61 10*6/uL Low [facility] Segmented neutrophils/100 WBC (Bld) 69.0 % [facility] WBC corrected for nucl RBC Auto (Bld) [#/Vol] 2.9 Low [facility] COMPREHENSIVE METABOLIC PANE [place] 12-08-2023 Albumin [Mass/Vol] 3.2 g/dL Normal 3.2-5.3 [facility] Comment on above: Performed By: #### B MP, CBC #### [facility] ([id number]) [address] [place] [address] #### 6793-4 #### [facility] ([id number]) [address] [place] [address], [address] [place] [address] ALP [Catalytic activity/Vol] 64 U/L Normal 39-130 [facility] Comment on above: Performed By: #### Willis MP, CBC #### [facility] ([id number]) [address] [place] [address] 09793 #### 6793-4 #### [facility] ([id number]) [address], [address] [place] [address] ALT [Catalytic activity/Vol] 18 U/L Normal 0-31 [facility] Comment on above: Performed By: #### Willis MP, CBC #### [facility] ([id number]) [address] [place] [address] 60412 #### 6793-4 #### [facility] ([id number]) [address], [address] [place] [address] Anion gap [Moles/Vol] 8 mmol/L Normal 5-15 [facility] Comment on above: Performed By: #### Willis MP, CBC #### [facility] ([id number]) [address] [place] [address] 02312 #### 6793-4 #### [facility] ([id number]) [address], [address] [place] [address] AST [Catalytic activity/Vol] 28 U/L Normal 0-41 [facility] Comment on above: Performed By: #### Willis MP, CBC #### [facility] ([id number]) [address] [place] [address] 49132 #### 6793-4 #### [facility] ([id number]) [address], [address] [place] [address] Bilirubin [Mass/Vol] 0.6 mg/dL Normal 0.3-1.2 [facility] Comment on above: Performed By: #### Willis MP, CBC #### [facility] ([id number]) [address] [place] [address] 59271 #### 6793-4 #### [facility] ([id number]) [address], [address] [place] [address] Calcium [Mass/Vol] 8.7 mg/dL Normal 8.5-10.5 [facility] Comment on above: Performed By: #### Willis ALTAMIRANO, CBC #### [facility] ([id number]) [address] [place] [address] 70071 #### 6793-4 #### [facility] ([id number]) [address], [address] [place] [address] Chloride [Moles/Vol] 101 mmol/L Normal 98-109 [facility] Comment on above: Performed By: #### Willis ALTAMIRANO, CBC #### [facility] ([id number]) [address] [place] [address] 33048 #### 6793-4 #### [facility] ([id number]) [address], [address] [place] [address] CO2 [Moles/Vol] 27 mmol/L Normal 22-32 [facility] Comment on above: Performed By: #### Willis MP, CBC #### [facility] ([id number]) [address] [place] [address] 66176 #### 6793-4 #### [facility] ([id number]) [address] [address] [place] [address] Creatinine [Mass/Vol] 1.89 mg/dL High 0.40-1.00 [facility] Comment on above: Result Comment: METH OD TRACEABLE TO IDMS STANDARD Performed By: #### B ADARSH, CBC #### [facility] ([id number]) [address] [place] [address] 49459 #### 6793-4 #### [facility] ([id number]) [address], [address] [place] [address] GFR/1.73 sq M.predicted among non-blacks MDRD (S/P/Bld) [Vol rate/Area] 31 mL/min/{1.73_m2} Low >59 [facility] Comment on above: Result Comment: Reported eGFR is based on the CKD-EPI 2020 equation that does not use a race coefficient. Performed By: #### B ADARSH, CBC #### [facility] ([id number]) [address] [place] [address] 60022 #### 6793-4 #### [facility] ([id number]) [address], [address] [place] [address] Glucose [Mass/Vol] 99 mg/dL Normal 65-99 [facility] Comment on above: Performed By: #### Willis ALTAMIRANO, CBC #### [facility] ([id number]) [address] [place] [address] 95206 #### 6793-4 #### [facility] ([id number]) [address], [address] [place] [address] Potassium [Moles/Vol] 3.2 mmol/L Low 3.5-5.0 [facility] Comment on above: Performed By: #### Willis ALTAMIRANO, CBC #### [facility] ([id number]) [address] [place] [address] 73276 #### 6793-4 #### [facility] ([id number]) [address] [place] [address] Protein [Mass/Vol] 5.6 g/dL Low 6.0-8.0 [facility] Comment on above: Performed By: #### B ADARSH, CBC #### [facility] ([id number]) [address] [place] [address] 92440 #### 6793-4 #### [facility] ([id number]) [address] [place] [address] Sodium [Moles/Vol] 136 mmol/L Normal 134-146 [facility] Comment on above: Performed By: #### B MP, CBC #### [facility] ([id number]) [address] [place] [address] #### 6793-4 #### [facility] ([id number]) [address], [address] [place] [address] Urea nitrogen [Mass/Vol] 24 mg/dL High 5-23 [facility] Comment on above: Performed By: #### B MP, CBC #### [facility] ([id number]) [address] [place] [address] #### 6793-4 #### [facility] ([id number]) [address] [place] [address] Comprehensive metabolic pane rome 12-08-2023 Albumin [Mass/Vol] 3.2 g/dL 3.2 - 5.3 g/dL [facility] ALP [Catalytic activity/Vol] 64 U/L 39 - 130 U/L [facility] ALT No additional P-5'-P [Catalytic activity/Vol] 18 U/L 0 - 31 U/L [facility] Anion gap [Moles/Vol] 8 mmol/L 5 - 15 mmol/L [facility] AST [Catalytic activity/Vol] 28 U/L 0 - 41 U/L [facility] Bilirubin [Mass/Vol] 0.6 mg/dL 0.3 - 1 .2 mg/dL [facility] Calcium [Mass/Vol] 8.7 mg/dL 8.5 - 10. 5 mg/dL [facility] Chloride [Moles/Vol] 101 mmol/L 98 - 10 9 mmol/L [facility] CO2 [Moles/Vol] 27 mmol/L 22 - 32 mmol/L [facility] Creatinine [Mass/Vol] 1.89 mg/dL High 0.40 - 1.00 mg/dL [facility] Comment on above: METHOD TRACEABLE TO IDUT STANDARD eGFR (CKD-EPI)non-race dependent 31 Low - PINF [facility] Comment on above: Reported eGFR is based on the CKD-EPI 2020 equation that does not use a race coefficient. Glucose [Mass/Vol] 99 mg/dL 65 - 99 mg/dL [facility] Potassium [Moles/Vol] 3.2 mmol/L Low 3.5 - 5.0 mmol/L [facility] Protein [Mass/Vol] 5.6 g/dL Low 6.0 - 8.0 g/dL [facility] Sodium [Moles/Vol] 136 mmol/L 134 - 146 mmol/L [facility] Urea nitrogen [Mass/Vol] 24 mg/dL High 5 - 23 mg/dL [facility] MAGNESIUMon 12-08-2023 Magnesium [Mass/Vol] 2.5 mg/dL Normal 1.8-2.6 [facility] Comment on above: Performed By: #### B MP, CBC #### [facility] ([id number]) [address] [place] [address] #### [id number] #### [facility] ([id number]) [address] [facility], [address] [address] Magnesium [Mass/Vol] 1.5 mg/dL Low 1.8-2.6 [facility] Comment on above: Performed By: #### B MP, CBC #### [facility] ([id number]) [address] [place] [address] #### [id number] #### [facility] ([id number]) [address] [facility], [address] [address] Magnesiumon 12-08-2023 Magnesium [Mass/Vol] 2.5 mg/dL 1.8 - 2 .6 mg/dL [facility] Magnesium [Mass/Vol] 1.5 mg/dL Low 1.8 - 2 .6 mg/dL [facility] No Panel Informationon 12-07 [facility] Interpretation and review of laboratory results Abnormal [facility] PHOSPHORUSon 12-08-2023 Phosphate [Mass/Vol] 4.1 mg/dL Normal 2.4-4.9 [facility] Comment on above: Performed By: #### B MP, CBC #### [facility] ([id number]) [address] [place] [address] 18759 #### 6793-4 #### [facility] ([id number]) [address] [facility], [address] [place] [address] POTASSIUMon 12-08-2023 Potassium [Moles/Vol] 3.8 mmol/L Normal 3.5-5.0 [facility] Comment on above: Performed By: #### B MP, CBC #### [facility] ([id number]) [address] [place] [address] 95147 #### 6793-4 #### [facility] ([id number]) [address] [facility], [address] [place] [address] Potassium [Moles/Vol] 3.3 mmol/L Low 3.5-5.0 [facility] Comment on above: Performed By: #### B MP, CBC #### [facility] ([id number]) [address] [place] [address] 44544 #### 6793-4 #### [facility] ([id number]) [address] [facility], [address] [address] Phosphoruson 12-08-2023 Phosphate [Mass/Vol] 4.1 mg/dL 2.4 - 4 .9 mg/dL [facility] Potassiumon 12-08-2023 Potassium [Moles/Vol] 3.8 mmol/L 3.5 - 5.0 mmol/L [facility] Potassium [Moles/Vol] 3.3 mmol/L Low 3.5 - 5.0 mmol/L [facility] Potassium [Moles/Vol]on [facility] Interpretation and review of laboratory results Abnormal [facility] CBC AND AUTO DIFFon 12-07-19 24 ABSOLUTE BASOPHIL 0.0 X10E9/L Normal 0.0-0.2 [facility] Comment on above: Performed By: #### B MP, CBC #### [facility] ([id number]) [address] [place] [address] 38228 #### 6793-4 #### [facility] ([id number]) [address], [address] [place] [address] ABSOLUTE NEUTROPHIL 1.6 X10E9/L Normal 1.5-6.6 [facility] Comment on above: Performed By: #### B MP, CBC #### [facility] ([id number]) [address] [place] [address] 91413 #### 6793-4 #### [facility] ([id number]) [address] [facility], [address] [place] [address] Basophils/100 WBC (Bld) 0.7 % Normal [facility] Comment on above: Performed By: #### B MP, CBC #### [facility] ([id number]) [address] [place] [address] 60770 #### 6793-4 #### [facility] ([id number]) [address] [facility], [address] [place] [address] Eosinophils (Bld) [#/Vol] 0.2 10*3/uL Normal 0.0-0.4 [facility] Comment on above: Performed By: #### B MP, CBC #### [facility] ([id number]) [address] [place] [address] 57448 #### 6793-4 #### [facility] ([id number]) [address] [facility], [address] [place] [address] Eosinophils/100 WBC (Bld) 7.0 % Normal [facility] Comment on above: Performed By: #### B MP, CBC #### [facility] ([id number]) [address] [place] [address] 59609 #### 6793-4 #### [facility] ([id number]) [address], [address] [place] [address] Erythrocyte distribution width (RBC) [Ratio] 14.2 % Normal 11.5-15.0 [facility] Comment on above: Performed By: #### B MP, CBC #### [facility] ([id number]) [address] [place] [address] 75019 #### 6793-4 #### [facility] ([id number]) [address], [address] [place] [address] Hematocrit (Bld) [Volume fraction] 22.3 % Low 35-47 [facility] Comment on above: Performed By: #### B MP, CBC #### [facility] ([id number]) [address] [place] [address] 70546 #### 6793-4 #### [facility] ([id number]) [address] [address] [place] [address] Hemoglobin (Bld) [Mass/Vol] 7.8 g/dL Low 11.7-15.5 [facility] Comment on above: Performed By: #### B MP, CBC #### [facility] ([id number]) [address] [place] [address] 89226 #### 6793-4 #### [facility] ([id number]) [address] [address] [place] [address] Lymphocytes (Bld) [#/Vol] 0.5 10*3/uL Low 1.0-3.5 [facility] Comment on above: Performed By: #### B MP, CBC #### [facility] ([id number]) [address] [place] [address] 96440 #### 6793-4 #### [facility] ([id number]) [address] [address] [place] [address] Lymphocytes/100 WBC (Bld) 19.6 % Normal [facility] Comment on above: Performed By: #### B MP, CBC #### [facility] ([id number]) [address] [place] [address] 51626 #### 6793-4 #### [facility] ([id number]) [address] [facility], [address] [place] [address] MCH (RBC) [Entitic mass] 30.9 pg Normal 27-34 [facility] Comment on above: Performed By: #### Willis MP, CBC #### [facility] ([id number]) [address] [place] [address] 25481 #### 6793-4 #### [facility] ([id number]) [address] [place] [address], [address] [place] [address] MCHC (RBC) [Mass/Vol] 34.9 g/dL Normal 32-36 [facility] Comment on above: Performed By: #### Willis MP, CBC #### [facility] ([id number]) [address] [place], [place] [address] #### 6793-4 #### [facility] ([id number]) [address] [facility], [address] [place] [address] MCV (RBC) [Entitic vol] 88 fL Normal 80-[address] [facility] Comment on above: Performed By: #### Willis MP, CBC #### [facility] ([id number]) [address] [place] [address] 79708 #### 6793-4 #### [facility] ([id number]) [address] [place] [address], [address] [place] [address] Monocytes (Bld) [#/Vol] 0.3 10*3/uL Normal 0-0.9 [facility] Comment on above: Performed By: #### B MP, CBC #### [facility] ([id number]) [address] [place] [address] 76343 #### 6793-4 #### [facility] ([id number]) [address], [address] [place] [address] Monocytes/100 WBC (Bld) 12.5 % Normal P [facility] Comment on above: Performed By: #### B MP, CBC #### [facility] ([id number]) [address] [place] [address] 57953 #### 6793-4 #### [facility] ([id number]) [address], [address] [place] [address] Neutrophils/100 WBC (Bld) 60.2 % Normal [facility] Comment on above: Performed By: #### B MP, CBC #### [facility] ([id number]) [address] [place] [address] 30796 #### 6793-4 #### [facility] ([id number]) [address] [address] [place] [address] Platelet mean volume (Bld) [Entitic vol] 6.9 fL Low 7-12 [facility] Comment on above: Performed By: #### B MP, CBC #### [facility] ([id number]) [address] [place] [address] 11077 #### 6793-4 #### [facility] ([id number]) [address] [address] [place] [address] Platelets (Bld) [#/Vol] 150 10*3/uL Normal 150-450 [facility] Comment on above: Performed By: #### B MP, CBC #### [facility] ([id number]) [address] [place] [address] 31787 #### 6793-4 #### [facility] ([id number]) [address] [address] [place] [address] RBC COUNT 2.52 X10E12/L Low 3.80-5.20 [facility] Comment on above: Performed By: #### B MP, CBC #### [facility] ([id number]) [address] [place] [address] #### 6793-4 #### [facility] ([id number]) [address] [place] [address], [address] [place] [address] WBC (Bld) [#/Vol] 2.7 10*3/uL Low 4.0-11.0 [facility] Comment on above: Performed By: #### Willis MP, CBC #### [facility] ([id number]) [address] [place] [address] 54020 #### 6793-4 #### [facility] ([id number]) [address] [place] [address], [address] [place] [address] CBC auto differentialon 100 Basophils (Bld) [#/Vol] 0.0 10*3/uL [facility] Basophils/100 WBC (Bld) 0.7 % [facility] Eosinophils (Bld) [#/Vol] 0.2 10*3/uL [facility] Eosinophils/100 WBC (Bld) 7.0 % [facility] Erythrocyte distribution width (RBC) [Ratio] 14.2 % 11.5 - 15.0 % [facility] Hematocrit (Bld) [Volume fraction] 22.3 % Low 35 - 47 % [facility] Hemoglobin (Bld) [Mass/Vol] 7.8 g/dL Low 11.7 - 15.5 g/dL [facility] Interpretation and review of laboratory results Abnormal [facility] Lymphocytes (Bld) [#/Vol] 0.5 10*3/uL Low [facility] Lymphocytes/100 WBC (Bld) 19.6 % [facility] MCH (RBC) [Entitic mass] 30.9 pg 27 - 34 pg [facility] MCHC (RBC) [Mass/Vol] 34.9 g/dL 32 - 3 6 g/dL [facility] MCV (RBC) [Entitic vol] 88 fL 80 - 100 fL [facility] Monocytes (Bld) [#/Vol] 0.3 10*3/uL [facility] Monocytes/100 WBC (Bld) 12.5 % P [facility] Neutrophils (Bld) [#/Vol] 1.6 10*3/uL [facility] Neutrophils/100 WBC (Bld) 60.2 % [facility] Platelet mean volume (Bld) [Entitic vol] 6.9 fL Low 7 - 12 fL [facility] Platelets (Bld) [#/Vol] 150 10*3/uL [facility] RBC (Bld) [#/Vol] 2.52 10*6/uL Low [facility] WBC corrected for nucl RBC Auto (Bld) [#/Vol] 2.7 Low [facility] COMPREHENSIVE METABOLIC PANE [place] 12-07-2023 Albumin [Mass/Vol] 3.1 g/dL Low 3.2-5.3 [facility] Comment on above: Performed By: #### B ADARSH, CBC #### [facility] ([id number]) [address] [place] [address] 30102 #### 6793-4 #### [facility] ([id number]) [address], [address] [place] [address] ALP [Catalytic activity/Vol] 56 U/L Normal 39-130 [facility] Comment on above: Performed By: #### B MP, CBC #### [facility] ([id number]) [address] [place] [address] 63546 #### 6793-4 #### [facility] ([id number]) [address], [address] [place] [address] ALT [Catalytic activity/Vol] 13 U/L Normal 0-31 [facility] Comment on above: Performed By: #### B MP, CBC #### [facility] ([id number]) [address] [place] [address] 60603 #### 6793-4 #### [facility] ([id number]) [address], [address] [place] [address] Anion gap [Moles/Vol] 8 mmol/L Normal 5-15 [facility] Comment on above: Performed By: #### B MP, CBC #### [facility] ([id number]) [address] [place] [address] 27432 #### 6793-4 #### [facility] ([id number]) [address], [address] [place] [address] AST [Catalytic activity/Vol] 22 U/L Normal 0-41 [facility] Comment on above: Performed By: #### B MP, CBC #### [facility] ([id number]) [address] [place] [address] 53346 #### 6793-4 #### [facility] ([id number]) [address], [address] [place] [address] Bilirubin [Mass/Vol] 0.5 mg/dL Normal 0.3-1.2 [facility] Comment on above: Performed By: #### Willis MP, CBC #### [facility] ([id number]) [address] [place] [address] 98354 #### 6793-4 #### [facility] ([id number]) [address], [address] [place] [address] Calcium [Mass/Vol] 8.8 mg/dL Normal 8.5-10.5 [facility] Comment on above: Performed By: #### Willis MP, CBC #### [facility] ([id number]) [address] [place] [address] 22369 #### 6793-4 #### [facility] ([id number]) [address], [address] [place] [address] Chloride [Moles/Vol] 102 mmol/L Normal 98-109 [facility] Comment on above: Performed By: #### Willis MP, CBC #### [facility] ([id number]) [address] [place] [address] 37478 #### 6793-4 #### [facility] ([id number]) [address] [facility] [place] [address] CO2 [Moles/Vol] 28 mmol/L Normal 22-32 [facility] Comment on above: Performed By: #### Willis ALTAMIRANO, CBC #### [facility] ([id number]) [address] [place] [address] 99498 #### 6793-4 #### [facility] ([id number]) [address] [facility], [address] [place] [address] Creatinine [Mass/Vol] 2.07 mg/dL High 0.40-1.00 [facility] Comment on above: Result Comment: METH OD TRACEABLE TO IDMS STANDARD Performed By: #### Willis ALTAMIRANO CBC #### [facility] ([id number]) [address] [place] [address] 38397 #### 6793-4 #### [facility] ([id number]) [address] [facility], [address] [place] [address] GFR/1.73 sq M.predicted among non-blacks MDRD (S/P/Bld) [Vol rate/Area] 28 mL/min/{1.73_m2} Low >59 [facility] Comment on above: Result Comment: Reported eGFR is based on the CKD-EPI 2020 equation that does not use a race coefficient. Performed By: #### Willis ALTAMIRANO, CBC #### [facility] ([id number]) [address] [place] [address] 06031 #### 6793-4 #### [facility] ([id number]) [address] [facility], [address] [place] [address] Glucose [Mass/Vol] 99 mg/dL Normal 65-99 [facility] Comment on above: Performed By: #### Willis ALTAMIRANO, CBC #### [facility] ([id number]) [address] [place] [address] 25687 #### 6793-4 #### [facility] ([id number]) [address], [address] [place] [address] Potassium [Moles/Vol] 3.3 mmol/L Low 3.5-5.0 [facility] Comment on above: Performed By: #### Willis MP, CBC #### [facility] ([id number]) [address] [place] [address] 80234 #### 6793-4 #### [facility] ([id number]) [address], [address] [place] [address] Protein [Mass/Vol] 5.6 g/dL Low 6.0-8.0 [facility] Comment on above: Performed By: #### Willis ALTAMIRANO, CBC #### [facility] ([id number]) [address] [place] [address] 77925 #### 6793-4 #### [facility] ([id number]) [address], [address] [place] [address] Sodium [Moles/Vol] 138 mmol/L Normal 134-146 [facility] Comment on above: Performed By: #### Willis MP, CBC #### [facility] ([id number]) [address] [place] [address] 52429 #### 6793-4 #### [facility] ([id number]) [address], [address] [place] [address] Urea nitrogen [Mass/Vol] 27 mg/dL High 5-23 [facility] Comment on above: Performed By: #### Willis MP, CBC #### [facility] ([id number]) [address] [place] [address] 19308 #### 6793-4 #### [facility] ([id number]) [address], [address] [place] [address] Comprehensive metabolic pane rome 12-07-2023 Albumin [Mass/Vol] 3.1 g/dL Low 3.2 - 5.3 g/dL [facility] ALP [Catalytic activity/Vol] 56 U/L 39 - 130 U/L [facility] ALT No additional P-5'-P [Catalytic activity/Vol] 13 U/L 0 - 31 U/L [facility] Anion gap [Moles/Vol] 8 mmol/L 5 - 15 mmol/L [facility] AST [Catalytic activity/Vol] 22 U/L 0 - 41 U/L [facility] Bilirubin [Mass/Vol] 0.5 mg/dL 0.3 - 1 .2 mg/dL [facility] Calcium [Mass/Vol] 8.8 mg/dL 8.5 - 10. 5 mg/dL [facility] Chloride [Moles/Vol] 102 mmol/L 98 - 10 9 mmol/L [facility] CO2 [Moles/Vol] 28 mmol/L 22 - 32 mmol/L [facility] Creatinine [Mass/Vol] 2.07 mg/dL High 0.40 - 1.00 mg/dL [facility] Comment on above: METHOD TRACEABLE TO [facility] STANDARD eGFR (CKD-EPI)non-race dependent 28 Low - PINF [facility] Comment on above: Reported eGFR is based on the CKD-EPI 2020 equation that does not use a race coefficient. Glucose [Mass/Vol] 99 mg/dL 65 - 99 mg/dL [facility] Potassium [Moles/Vol] 3.3 mmol/L Low 3.5 - 5.0 mmol/L [facility] Protein [Mass/Vol] 5.6 g/dL Low 6.0 - 8.0 g/dL [facility] Sodium [Moles/Vol] 138 mmol/L 134 - 146 mmol/L [facility] Urea nitrogen [Mass/Vol] 27 mg/dL High 5 - 23 mg/dL [facility] MAGNESIUMon 12-07-2023 Magnesium [Mass/Vol] 2.0 mg/dL Normal 1.8-2.6 [facility] Comment on above: Performed By: #### B MP, CBC #### [facility] ([id number]) [address] [place] [address] #### 6793-4 #### [facility] ([id number]) [address], [address] [place] [address] Magnesiumon 12-07-2023 Magnesium [Mass/Vol] 2.0 mg/dL 1.8 - 2 .6 mg/dL [facility] No Panel Informationon 12-06 Interpretation and review of laboratory results Abnormal [facility] PHOSPHORUSon 12-07-2023 Phosphate [Mass/Vol] 5.4 mg/dL High 2.4-4.9 [facility] Comment on above: Performed By: #### B MP, CBC #### [facility] ([id number]) [address] [place] [address] #### 6793-4 #### [facility] ([id number]) [address] [facility], [address] [place] [address]609 Phosphoruson 12-07-2023 Phosphate [Mass/Vol] 5.4 mg/dL High 2.4 - 4 .9 mg/dL [facility] CBC AND AUTO DIFFon 12-06-19 ABSOLUTE BASOPHIL 0.0 X10E9/L Normal 0.0-0.2 [facility] Comment on above: Performed By: #### B MP, CBC #### [facility] ([id number]) [address] [place] [address] 19483 #### 6793-4 #### [facility] ([id number]) [address], [address] [place] [address] 79645 ABSOLUTE NEUTROPHIL 1.9 X10E9/L Normal 1.5-6.6 [facility] Comment on above: Performed By: #### B MP, CBC #### [facility] ([id number]) [address] [place] [address] 02918 #### 6793-4 #### [facility] ([id number]) [address] [facility] [place] [address] Basophils/100 WBC (Bld) 0.5 % Normal [facility] Comment on above: Performed By: #### B MP, CBC #### [facility] ([id number]) [address] [place] [address] 15564 #### 6793-4 #### [facility] ([id number]) [address], [address] [place] [address] Eosinophils (Bld) [#/Vol] 0.2 10*3/uL Normal 0.0-0.4 [facility] Comment on above: Performed By: #### B MP, CBC #### [facility] ([id number]) [address] [place] [address] 32295 #### 6793-4 #### [facility] ([id number]) [address] [facility] [place] [address] Eosinophils/100 WBC (Bld) 7.7 % Normal [facility] Comment on above: Performed By: #### B MP, CBC #### [facility] ([id number]) [address] [place] [address] 73040 #### 6793-4 #### [facility] ([id number]) [address], [address] [place] [address] Erythrocyte distribution width (RBC) [Ratio] 14.1 % Normal 11.5-15.0 [facility] Comment on above: Performed By: #### B MP, CBC #### [facility] ([id number]) [address] [place] [address] 60944 #### 6793-4 #### [facility] ([id number]) [address], [address] [place] [address] Hematocrit (Bld) [Volume fraction] 23.0 % Low 35-47 [facility] Comment on above: Performed By: #### B MP, CBC #### [facility] ([id number]) [address] [place] [address] 14034 #### 6793-4 #### [facility] ([id number]) [address], [address] [place] [address] Hemoglobin (Bld) [Mass/Vol] 7.8 g/dL Low 11.7-15.5 [facility] Comment on above: Performed By: #### B MP, CBC #### [facility] ([id number]) [address] [place] [address] 77991 #### 6793-4 #### [facility] ([id number]) [address], [address] [place] [address] Lymphocytes (Bld) [#/Vol] 0.4 10*3/uL Low 1.0-3.5 [facility] Comment on above: Performed By: #### Willis MP, CBC #### [facility] ([id number]) [address] [place] [address] #### 6793-4 #### [facility] ([id number]) [address], [address] [place] [address] Lymphocytes/100 WBC (Bld) 13.8 % Normal [facility] Comment on above: Performed By: #### B MP, CBC #### [facility] ([id number]) [address] [place] [address] 73357 #### 6793-4 #### [facility] ([id number]) [address] [place] [address] MCH (RBC) [Entitic mass] 30.3 pg Normal 27-34 [facility] Comment on above: Performed By: #### B MP, CBC #### [facility] ([id number]) [address] [place] [address] 00735 #### 6793-4 #### [facility] ([id number]) [address], [address] [place] [address] MCHC (RBC) [Mass/Vol] 34.0 g/dL Normal 32-36 [facility] Comment on above: Performed By: #### B MP, CBC #### [facility] ([id number]) [address] [place] [address] 87247 #### 6793-4 #### [facility] ([id number]) [address] [place] [address] MCV (RBC) [Entitic vol] 89 fL Normal 80-[address] [facility] Comment on above: Performed By: #### B MP, CBC #### [facility] ([id number]) [address] [place] [address] 84789 #### 6793-4 #### [facility] ([id number]) [address] [place] [address] Monocytes (Bld) [#/Vol] 0.4 10*3/uL Normal 0-0.9 [facility] Comment on above: Performed By: #### B MP, CBC #### [facility] ([id number]) [address] [place] [address] 56157 #### 6793-4 #### [facility] ([id number]) [address] [place] [address] Monocytes/100 WBC (Bld) 14.0 % Normal P [facility] Comment on above: Performed By: #### B MP, CBC #### [facility] ([id number]) [address] [place] [address] 93331 #### 6793-4 #### [facility] ([id number]) [address], [address] [place] [address] Neutrophils/100 WBC (Bld) 64.0 % Normal [facility] Comment on above: Performed By: #### B MP, CBC #### [facility] ([id number]) [address] [place] [address] #### 6793-4 #### [facility] ([id number]) [address], [address] [place] [address] Platelet mean volume (Bld) [Entitic vol] 6.7 fL Low 7-12 [facility] Comment on above: Performed By: #### B MP, CBC #### [facility] ([id number]) [address] [place] [address] #### 6793-4 #### [facility] ([id number]) [address], [address] [place] [address] Platelets (Bld) [#/Vol] 172 10*3/uL Normal 150-450 [facility] Comment on above: Performed By: #### B MP, CBC #### [facility] ([id number]) [address] [place] [address] #### 6793-4 #### [facility] ([id number]) [address], [address] [place] [address] RBC COUNT 2.58 X10E12/L Low 3.80-5.20 [facility] Comment on above: Performed By: #### B MP, CBC #### [facility] ([id number]) [address] [place] [address] #### 6793-4 #### [facility] ([id number]) [address] [place] [address] WBC (Bld) [#/Vol] 3.0 10*3/uL Low 4.0-11.0 [facility] Comment on above: Performed By: #### B MP, CBC #### [facility] ([id number]) [address] [place] [address] #### 6793-4 #### [facility] ([id number]) [address] [place] [address] CBC auto differentialon 10-0 Basophils (Bld) [#/Vol] 0.0 10*3/uL [facility] Basophils/100 WBC (Bld) 0.5 % [facility] Eosinophils (Bld) [#/Vol] 0.2 10*3/uL [facility] Eosinophils/100 WBC (Bld) 7.7 % [facility] Erythrocyte distribution width (RBC) [Ratio] 14.1 % 11.5 - 15.0 % [facility] Hematocrit (Bld) [Volume fraction] 23.0 % Low 35 - 47 % [facility] Hemoglobin (Bld) [Mass/Vol] 7.8 g/dL Low 11.7 - 15.5 g/dL [facility] Interpretation and review of laboratory results Abnormal [facility] Lymphocytes (Bld) [#/Vol] 0.4 10*3/uL Low [facility] Lymphocytes/100 WBC (Bld) 13.8 % [facility] MCH (RBC) [Entitic mass] 30.3 pg 27 - 34 pg [facility] MCHC (RBC) [Mass/Vol] 34.0 g/dL 32 - 3 6 g/dL [facility] MCV (RBC) [Entitic vol] 89 fL 80 - 100 fL [facility] Monocytes (Bld) [#/Vol] 0.4 10*3/uL [facility] Monocytes/100 WBC (Bld) 14.0 % [facility] Neutrophils (Bld) [#/Vol] 1.9 10*3/uL [facility] Neutrophils/100 WBC (Bld) 64.0 % [facility] Platelet mean volume (Bld) [Entitic vol] 6.7 fL Low 7 - 12 fL [facility] Platelets (Bld) [#/Vol] 172 10*3/uL [facility] RBC (Bld) [#/Vol] 2.58 10*6/uL Low [facility] WBC corrected for nucl RBC Auto (Bld) [#/Vol] 3.0 Low [facility] COMPREHENSIVE METABOLIC PANE [place] 12-06-2023 Albumin [Mass/Vol] 3.3 g/dL Normal 3.2-5.3 [facility] Comment on above: Performed By: #### Willis ALTAMIRANO, CBC #### [facility] ([id number]) [address] [place] [address] 60281 #### 6793-4 #### [facility] ([id number]) [address], [address] [place] [address] ALP [Catalytic activity/Vol] 55 U/L Normal 39-130 [facility] Comment on above: Performed By: #### Willis MP, CBC #### [facility] ([id number]) [address] [place] [address] 09144 #### 6793-4 #### [facility] ([id number]) [address], [address] [place] [address] ALT [Catalytic activity/Vol] 9 U/L Normal 0-31 [facility] Comment on above: Performed By: #### Willis ALTAMIRANO, CBC #### [facility] ([id number]) [address] [place] [address] 43856 #### 6793-4 #### [facility] ([id number]) [address], [address] [place] [address] Anion gap [Moles/Vol] 9 mmol/L Normal 5-15 [facility] Comment on above: Performed By: #### Willis ALTAMIRANO, CBC #### [facility] ([id number]) [address] [place] [address] 93550 #### 6793-4 #### [facility] ([id number]) [address], [address] [place] [address] AST [Catalytic activity/Vol] 16 U/L Normal 0-41 [facility] Comment on above: Performed By: #### Willis MP, CBC #### [facility] ([id number]) [address] [place] [address] 59334 #### 6793-4 #### [facility] ([id number]) [address], [address] [place] [address] Bilirubin [Mass/Vol] 0.5 mg/dL Normal 0.3-1.2 [facility] Comment on above: Performed By: #### B MP, CBC #### [facility] ([id number]) [address] [place] [address] 12438 #### 6793-4 #### [facility] ([id number]) [address], [address] [place] [address] Calcium [Mass/Vol] 9.0 mg/dL Normal 8.5-10.5 [facility] Comment on above: Performed By: #### B MP, CBC #### [facility] ([id number]) [address] [place] [address] 02667 #### 6793-4 #### [facility] ([id number]) [address], [address] [place] [address] Chloride [Moles/Vol] 102 mmol/L Normal 98-109 [facility] Comment on above: Performed By: #### Willis MP, CBC #### [facility] ([id number]) [address] [place] [address] 16582 #### 6793-4 #### [facility] ([id number]) [address] [place] [address] CO2 [Moles/Vol] 26 mmol/L Normal 22-32 [facility] Comment on above: Performed By: #### Willis MP, CBC #### [facility] ([id number]) [address] [place] [address] 99578 #### 6793-4 #### [facility] ([id number]) [address] [place] [address] Creatinine [Mass/Vol] 2.34 mg/dL High 0.40-1.00 [facility] Comment on above: Result Comment: METH OD TRACEABLE TO IDMS STANDARD Performed By: #### B ADARSH, CBC #### [facility] ([id number]) [address] [place] [address] 78461 #### 6793-4 #### [facility] ([id number]) [address], [facility] [address] [place] [address] GFR/1.73 sq M.predicted among non-blacks MDRD (S/P/Bld) [Vol rate/Area] 24 mL/min/{1.73_m2} Low >59 [facility] Comment on above: Result Comment: Reported eGFR is based on the CKD-EPI 2020 equation that does not use a race coefficient. Performed By: #### B ADARSH, CBC #### [facility] ([id number]) [address] [place] [address] 60833 #### 6793-4 #### [facility] ([id number]) [address], [address] [place] [address] Glucose [Mass/Vol] 100 mg/dL High 65-99 [facility] Comment on above: Performed By: #### Willis ALTAMIRANO, CBC #### [facility] ([id number]) [address] [place] [address] 36501 #### 6793-4 #### [facility] ([id number]) [address], [facility] [address] [place] [address] Potassium [Moles/Vol] 3.5 mmol/L Normal 3.5-5.0 [facility] Comment on above: Performed By: #### Willis ALTAMIRANO, CBC #### [facility] ([id number]) [address] [place] [address] 25003 #### 6793-4 #### [facility] ([id number]) [address], [address] [place] [address] Protein [Mass/Vol] 5.8 g/dL Low 6.0-8.0 [facility] Comment on above: Performed By: #### Willis ALTAMIRANO, CBC #### [facility] ([id number]) [address] [place] [address] 46203 #### 6793-4 #### [facility] ([id number]) [address] [place] [address] Sodium [Moles/Vol] 137 mmol/L Normal 134-146 [facility] Comment on above: Performed By: #### B MP, CBC #### [facility] ([id number]) [address] [place] [address] 93675 #### 6793-4 #### [facility] ([id number]) [address] [facility], [address] [place] [address] Urea nitrogen [Mass/Vol] 21 mg/dL Normal 5-23 [facility] Comment on above: Performed By: #### B MP, CBC #### [facility] ([id number]) [address] [place] [address] 18617 #### 6793-4 #### [facility] ([id number]) [address] [facility], [address] [place] [address] Comprehensive metabolic pane [place] 12-06-2023 Albumin [Mass/Vol] 3.3 g/dL 3.2 - 5.3 g/dL [facility] ALP [Catalytic activity/Vol] 55 U/L 39 - 130 U/L [facility] ALT No additional P-5'-P [Catalytic activity/Vol] 9 U/L 0 - 31 U/L [facility] Anion gap [Moles/Vol] 9 mmol/L 5 - 15 mmol/L [facility] AST [Catalytic activity/Vol] 16 U/L 0 - 41 U/L [facility] Bilirubin [Mass/Vol] 0.5 mg/dL 0.3 - 1 .2 mg/dL [facility] Calcium [Mass/Vol] 9.0 mg/dL 8.5 - 10. 5 mg/dL [facility] Chloride [Moles/Vol] 102 mmol/L 98 - 10 9 mmol/L [facility] CO2 [Moles/Vol] 26 mmol/L 22 - 32 mmol/L [facility] Creatinine [Mass/Vol] 2.34 mg/dL High 0.40 - 1.00 mg/dL [facility] Comment on above: METHOD TRACEABLE TO [facility] STANDARD eGFR (CKD-EPI)non-race dependent 24 Low - PINF [facility] Comment on above: Reported eGFR is based on the CKD-EPI 2020 equation that does not use a race coefficient. Glucose [Mass/Vol] 100 mg/dL High 65 - 99 mg/dL [facility] Potassium [Moles/Vol] 3.5 mmol/L 3.5 - 5.0 mmol/L [facility] Protein [Mass/Vol] 5.8 g/dL Low 6.0 - 8.0 g/dL [facility] Sodium [Moles/Vol] 137 mmol/L 134 - 146 mmol/L [facility] Urea nitrogen [Mass/Vol] 21 mg/dL 5 - 23 mg/dL [facility] MAGNESIUMon 12-06-2023 Magnesium [Mass/Vol] 2.3 mg/dL Normal 1.8-2.6 [facility] Comment on above: Performed By: #### B MP, CBC #### [facility] ([id number]) [address] [place] [address] #### 6793-4 #### [facility] ([id number]) [address], [address] [place] [address] Magnesium [Mass/Vol] 1.5 mg/dL Low 1.8-2.6 [facility] Comment on above: Performed By: #### B MP, CBC #### [facility] ([id number]) [address] [place] [address] #### 6793-4 #### [facility] ([id number]) [address] [place] [address] Magnesiumon 12-06-2023 Magnesium [Mass/Vol] 2.3 mg/dL 1.8 - 2 .6 mg/dL [facility] Magnesium [Mass/Vol] 1.5 mg/dL Low 1.8 - 2 .6 mg/dL [facility] Magnesium [Mass/Vol]on 12-05 [facility] No Panel Informationon 12-05 Interpretation and review of laboratory results Abnormal [facility] PHOSPHORUSon 12-06-2023 Phosphate [Mass/Vol] 5.0 mg/dL High 2.4-4.9 [facility] Comment on above: Performed By: #### B MP, CBC #### [facility] ([id number]) [address] [place] [address] 80494 #### 6793-4 #### [facility] ([id number]) [address], [address] [place] [address] Phosphoruson 12-06-2023 Phosphate [Mass/Vol] 5.0 mg/dL High 2.4 - 4 .9 mg/dL [facility] URINALYSISon 12-06-2023 Bilirubin Ql (U) Negative Normal NEG [facility] Comment on above: Performed By: #### B MP, CBC #### [facility] ([id number]) [address] [place] [address] 37942 #### 6793-4 #### [facility] ([id number]) [address], [address] [place] [address] BLOOD/HGB Negative Normal NEG [facility] Comment on above: Performed By: #### B MP, CBC #### [facility] ([id number]) [address] [place] [address] 25365 #### 6793-4 #### [facility] ([id number]) [address], [address] [place] [address] Color (U) YELLOW Normal YELLOW [facility] Comment on above: Performed By: #### B MP, CBC #### [facility] ([id number]) [address] [place] [address] 29442 #### 6793-4 #### [facility] ([id number]) [address], [address] [place] [address] Glucose Ql (U) Negative Normal NEG [facility] Comment on above: Performed By: #### B MP, CBC #### [facility] ([id number]) [address] [place] [address] 30204 #### 6793-4 #### [facility] ([id number]) [address], [address] [place] [address] Ketones Ql (U) Negative Normal NEG [facility] Comment on above: Performed By: #### Willis MP, CBC #### [facility] ([id number]) [address] [place] [address] 66152 #### 6793-4 #### [facility] ([id number]) [address], [address] [place] [address] Leukocyte esterase Test strip Ql (U) Trace Abnormal NEG [facility] Comment on above: Performed By: #### Willis MP, CBC #### [facility] ([id number]) [address] [place] [address] 11242 #### 6793-4 #### [facility] ([id number]) [address], [address] [place] [address] Nitrite Ql (U) Negative Normal NEG [facility] Comment on above: Performed By: #### Willis MP, CBC #### [facility] ([id number]) [address] [place] [address] 34168 #### 6793-4 #### [facility] ([id number]) [address], [address] [place] [address] pH (U) 6.5 [pH] Normal 5.0-8.5 [facility] Comment on above: Performed By: #### Willis MP, CBC #### [facility] ([id number]) [address] [place] [address] 87347 #### 6793-4 #### [facility] ([id number]) [address], [address] [place] [address] Protein Ql (U) Negative Normal NEG [facility] Comment on above: Performed By: #### Willis ALTAMIRANO, CBC #### [facility] ([id number]) [address] [place] [address] 96405 #### 6793-4 #### [facility] ([id number]) [address], [address] [place] [address] R.B.CELLS 1 /hpf Normal 0-5 [facility] Comment on above: Performed By: #### Willis ALTAMIRANO, CBC #### [facility] ([id number]) [address] [place] [address] 27517 #### 6793-4 #### [facility] ([id number]) [address], [address] [place] [address] Specific gravity (U) [Rel density] 1.010 Normal 1.003-1.03 5 [facility] Comment on above: Performed By: #### Willis LATAMIRANO, CBC #### [facility] ([id number]) [address] [place] [address] 65712 #### 6793-4 #### [facility] ([id number]) [address], [address] [place] [address] SQUAMOUS EPITHELIUM 1 /hpf Normal 0-5 [facility] Comment on above: Performed By: #### Willis ALTAMIRANO, CBC #### [facility] ([id number]) [address] [place] [address] 14466 #### 6793-4 #### [facility] ([id number]) [address], [address] [place] [address] TRANSITIONAL EPITH 1 /hpf High 0 [facility] Comment on above: Performed By: #### Willis ALTAMIRANO, CBC #### [facility] ([id number]) [address] [place] [address] #### 6793-4 #### [facility] ([id number]) [address] [place] [address] TURBIDITY CLEAR Normal CLEAR [facility] Comment on above: Performed By: #### B MP, CBC #### [facility] ([id number]) [address] [place] [address] #### 6793-4 #### [facility] ([id number]) [address] [place] [address] Urobilinogen Qn (U) 0.2 {[place]sley'U}/dL Normal <1.1 [facility] Comment on above: Performed By: #### B MP, CBC #### [facility] ([id number]) [address] [place] [address] #### 6793-4 #### [facility] ([id number]) [address] [place] [address] W.B.CELLS 3 /hpf Normal 0-5 [facility] Comment on above: Performed By: #### B MP, CBC #### [facility] ([id number]) [address] [place] [address] 45364 #### 6793-4 #### [facility] ([id number]) [address] [address] Urinalysison 12-06-2023 Bilirubin Ql (U) Negative Negative^N egative [facility] Color (U) YELLOW YELLOW^YEL LOW [facility] Epithelial cells Auto (Urine sed) [#/Area] 1 [facility] Epithelial cells.non-squamous LM.LPF (Urine sed) [#/Area] 1 High 0 /hpf [facility] Glucose (U) [Mass/Vol] Negative Negat hallie^N egative mg/dL [facility] Hemoglobin Auto test strip Ql (U) Negative Negative^N egative [facility] Interpretation and review of laboratory results Abnormal [facility] Ketones (U) [Mass/Vol] Negative Negat hallie^N egative mg/dL [facility] Leukocyte esterase Auto test strip Ql (U) Trace Abnormal Negative^N egative [facility] Nitrite Auto test strip Ql (U) Negative Negative^N egative [facility] pH (U) 6.5 [pH] 5.0 - 8.5 [facility] Protein (U) [Mass/Vol] Negative Negat ahllie^N egative mg/dL [facility] RBC Auto (Urine sed) [#/Area] 1 [facility] Specific gravity Refractometry automated (U) [Rel density] 1.010 1.003 - 1.035 [facility] Turbidity Ql (U) CLEAR CLEAR^TWIN R [facility] Urobilinogen Qn (U) 0.2 NINF [facility] WBC Auto (Urine sed) [#/Area] 3 [facility] BLOOD CULTUREon 12-05-2023 Bacteria identified Aer cx Nom (Bld) CULTURE RESULTS NO GROWTH 5 DAYS Normal [facility] Bacteria identified Aer cx Nom (Bld) CULTURE RESULTS NO GROWTH 5 DAYS Normal [facility] CBC AND AUTO DIFFon 12-05-19 24 ABSOLUTE BASOPHIL 0.0 X10E9/L Normal 0.0-0.2 [facility] Comment on above: Performed By: #### C HILLARY MYERS, 2776-03 ####[facility] ([id number])[address] [place] [address] ABSOLUTE NEUTROPHIL 2.6 X10E9/L Normal 1.5-6.6 [facility] Comment on above: Performed By: #### C HILLARY MYERS, 2776-03 ####[facility] ([id number])[address] [place] [address] Basophils/100 WBC (Bld) 0.7 % Normal P [facility] Comment on above: Performed By: #### C BCA, CMP, , 2776-03 ####[facility] ([id number])[address] [facility] [place] [address] Eosinophils (Bld) [#/Vol] 0.3 10*3/uL Normal 0.0-0.4 [facility] Comment on above: Performed By: #### C BCA, CMP, , 2776-03 ####[facility] ([id number])[address] [place] [address] Eosinophils/100 WBC (Bld) 8.8 % Normal [facility] Comment on above: Performed By: #### C BCA, CMP, , 2776-03 ####[facility] ([id number])[address] [place] [address] Erythrocyte distribution width (RBC) [Ratio] 13.8 % Normal 11.5-15.0 [facility] Comment on above: Performed By: #### C BCA, CMP, , 2776-03 ####[facility] ([id number])[address] [place] [address] Hematocrit (Bld) [Volume fraction] 22.2 % Low 35-47 [facility] Comment on above: Performed By: #### C BCA, CMP, , 2776-03 ####[facility] ([id number])[address] [place] [address] Hemoglobin (Bld) [Mass/Vol] 7.6 g/dL Low 11.7-15.5 [facility] Comment on above: Performed By: #### C BCA, CMP, , 2776-03 ####[facility] ([id number])[address] [place] [address] Lymphocytes (Bld) [#/Vol] 0.5 10*3/uL Low 1.0-3.5 [facility] Comment on above: Performed By: #### C BCA, CMP, , 2776-03 ####[facility] ([id number])[address] [place] [address] Lymphocytes/100 WBC (Bld) 11.8 % Normal [facility] Comment on above: Performed By: #### C BCA, CMP, , 2776-03 ####[facility] ([id number])[address] [place] [address] MCH (RBC) [Entitic mass] 30.5 pg Normal 27-34 [facility] Comment on above: Performed By: #### C BCA, CMP, , 2776-03 ####[facility] ([id number])[address] [place] [address] MCHC (RBC) [Mass/Vol] 34.4 g/dL Normal 32-36 [facility] Comment on above: Performed By: #### C BCA, CMP, , 2776-03 ####[facility] ([id number])[address] [place] [address] MCV (RBC) [Entitic vol] 89 fL Normal 80-100 [facility] Comment on above: Performed By: #### C BCA, CMP, , 2776-03 ####[facility] ([id number])[address] [place] [address] Monocytes (Bld) [#/Vol] 0.5 10*3/uL Normal 0-0.9 [facility] Comment on above: Performed By: #### C BCA, CMP, , 2776-03 ####[facility] ([id number])[address] [place] [address] Monocytes/100 WBC (Bld) 11.8 % Normal [facility] Comment on above: Performed By: #### C BCA, CMP, , 2776-03 ####[facility] ([id number])[address] [place] [address] Neutrophils/100 WBC (Bld) 66.9 % Normal [facility] Comment on above: Performed By: #### C BCA, CMP, , 2776-03 ####[facility] ([id number])[address] [facility] [place] [address] Platelet mean volume (Bld) [Entitic vol] 6.4 fL Low 7-12 [facility] Comment on above: Performed By: #### C BCA, CMP, , 2776-03 ####[facility] ([id number])[address] [facility] [place] [address] Platelets (Bld) [#/Vol] 195 10*3/uL Normal 150-450 [facility] Comment on above: Performed By: #### C LUCIA, CMP, , 2776-03 ####[facility] ([id number])[address] [facility] [place] [address] RBC COUNT 2.50 X10E12/L Low 3.80-5.20 [facility] Comment on above: Performed By: #### Jamal MYERS, CMP, , 2776-03 ####[facility] ([id number])[address] [facility] [place] [address] WBC (Bld) [#/Vol] 3.9 10*3/uL Low 4.0-11.0 [facility] Comment on above: Performed By: #### Jamal MYERS, CMP, , 2776-03 ####[facility] ([id number])[address] [facility] [facility] [place] [address] CBC auto differentialon 10-0 -2023 Basophils (Bld) [#/Vol] 0.0 10*3/uL [facility] Basophils/100 WBC (Bld) 0.7 % [facility] Eosinophils (Bld) [#/Vol] 0.3 10*3/uL [facility] Eosinophils/100 WBC (Bld) 8.8 % [facility] Erythrocyte distribution width (RBC) [Ratio] 13.8 % 11.5 - 15.0 % [facility] Hematocrit (Bld) [Volume fraction] 22.2 % Low 35 - 47 % [facility] Hemoglobin (Bld) [Mass/Vol] 7.6 g/dL Low 11.7 - 15.5 g/dL [facility] Interpretation and review of laboratory results Abnormal [facility] Lymphocytes (Bld) [#/Vol] 0.5 10*3/uL Low [facility] Lymphocytes/100 WBC (Bld) 11.8 % [facility] MCH (RBC) [Entitic mass] 30.5 pg 27 - 34 pg [facility] MCHC (RBC) [Mass/Vol] 34.4 g/dL 32 - 3 6 g/dL [facility] MCV (RBC) [Entitic vol] 89 fL 80 - 100 fL [facility] Monocytes (Bld) [#/Vol] 0.5 10*3/uL [facility] Monocytes/100 WBC (Bld) 11.8 % P [facility] Neutrophils (Bld) [#/Vol] 2.6 10*3/uL [facility] Neutrophils/100 WBC (Bld) 66.9 % [facility] Platelet mean volume (Bld) [Entitic vol] 6.4 fL Low 7 - 12 fL [facility] Platelets (Bld) [#/Vol] 195 10*3/uL [facility] RBC (Bld) [#/Vol] 2.50 10*6/uL Low [facility] WBC corrected for nucl RBC Auto (Bld) [#/Vol] 3.9 Low [facility] COMPREHENSIVE METABOLIC PANE [place] 12-05-2023 Albumin [Mass/Vol] 3.2 g/dL Normal 3.2-5.3 [facility] Comment on above: Performed By: #### C BCA, CMP, 76860-1, 2777-1 ####[facility] ([id number])5[address] [facility] [place] [address] ALP [Catalytic activity/Vol] 58 U/L Normal 39-130 [facility] Comment on above: Performed By: #### C BCA, CMP, 57460-7, 2777-1 ####[facility] ([id number])[address] [place] [address] ALT [Catalytic activity/Vol] 9 U/L Normal 0-31 [facility] Comment on above: Performed By: #### C BCA, CMP, , 2776-03 ####[facility] ([id number])[address] [place] [address] Anion gap [Moles/Vol] 8 mmol/L Normal 5-15 [facility] Comment on above: Performed By: #### C BCA, CMP, , 2776-03 ####[facility] ([id number])[address] [place] [address] AST [Catalytic activity/Vol] 15 U/L Normal 0-41 [facility] Comment on above: Performed By: #### C BCA, CMP, , 2776-03 ####[facility] ([id number])[address] [place] [address] Bilirubin [Mass/Vol] 0.4 mg/dL Normal 0.3-1.2 [facility] Comment on above: Performed By: #### C BCA, CMP, , 2776-03 ####[facility] ([id number])[address] [place] [address] Calcium [Mass/Vol] 9.4 mg/dL Normal 8.5-10.5 [facility] Comment on above: Performed By: #### C BCA, CMP, , 2776-03 ####[facility] ([id number])[address] [place] [address] Chloride [Moles/Vol] 105 mmol/L Normal 98-109 [facility] Comment on above: Performed By: #### C BCA, CMP, 2776-03 ####ST. [facility] ([id number])[address] [place] [address] CO2 [Moles/Vol] 26 mmol/L Normal 22-32 [facility] Comment on above: Performed By: #### C BCA, CMP, 2776-03 ####[facility] ([id number])5200 [facility] [place] [address] Creatinine [Mass/Vol] 2.61 mg/dL High 0.40-1.00 [facility] Comment on above: Result Comment: METH OD TRACEABLE TO IDMS STANDARD Performed By: #### C BCA, CMP, 2776-03 ####[facility] ([id number])5200 [facility] [place] [address] GFR/1.73 sq M.predicted among non-blacks MDRD (S/P/Bld) [Vol rate/Area] 21 mL/min/{1.73_m2} Low >59 [facility] Comment on above: Result Comment: Reported eGFR is based on the CKD-EPI 2020 equation that does not use a race coefficient. Performed By: #### C BCA, CMP, 2776-03 ####[facility] ([id number])5200 [facility] [place] [address] Glucose [Mass/Vol] 95 mg/dL Normal 65-99 [facility] Comment on above: Performed By: #### C BCA, [facility] [place], 2776-03 ####[facility] ([id number])5200 [facility] [place] [address] Potassium [Moles/Vol] 3.6 mmol/L Normal 3.5-5.0 [facility] Comment on above: Performed By: #### C BCA, CMP, 2776-03 ####[facility] ([id number])5200 [facility] [place] [address] Protein [Mass/Vol] 5.6 g/dL Low 6.0-8.0 [facility] Comment on above: Performed By: #### C BCA, CMP, 2776-03 ####[facility] ([id number])5200 [facility] [place] [address] Sodium [Moles/Vol] 139 mmol/L Normal 134-146 [facility] Comment on above: Performed By: #### C BCA, CMP, 62932-0, 277-1 ####[facility] ([id number])5200 [facility] [place] [address] Urea nitrogen [Mass/Vol] 19 mg/dL Normal 5-23 [facility] Comment on above: Performed By: #### C BCA, CMP, 30201-8, 2777-1 ####[facility] ([id number])5200 [facility] [place] [address] Cobalamin (Vitamin B12) [Mas s/Vol]on 12-05-2023 [facility] Comprehensive metabolic pane rome 12-05-2023 Albumin [Mass/Vol] 3.2 g/dL 3.2 - 5.3 g/dL [facility] ALP [Catalytic activity/Vol] 58 U/L 39 - 130 U/L [facility] ALT No additional P-5'-P [Catalytic activity/Vol] 9 U/L 0 - 31 U/L [facility] Anion gap [Moles/Vol] 8 mmol/L 5 - 15 mmol/L [facility] AST [Catalytic activity/Vol] 15 U/L 0 - 41 U/L [facility] Bilirubin [Mass/Vol] 0.4 mg/dL 0.3 - 1 .2 mg/dL [facility] Calcium [Mass/Vol] 9.4 mg/dL 8.5 - 10. 5 mg/dL [facility] Chloride [Moles/Vol] 105 mmol/L 98 - 10 9 mmol/L [facility] CO2 [Moles/Vol] 26 mmol/L 22 - 32 mmol/L [facility] Creatinine [Mass/Vol] 2.61 mg/dL High 0.40 - 1.00 mg/dL [facility] Comment on above: METHOD TRACEABLE TO IDUT STANDARD eGFR (CKD-EPI)non-race dependent 21 Low - PINF [facility] Comment on above: Reported eGFR is based on the CKD-EPI 2020 equation that does not use a race coefficient. Glucose [Mass/Vol] 95 mg/dL 65 - 99 mg/dL [facility] Potassium [Moles/Vol] 3.6 mmol/L 3.5 - 5.0 mmol/L [facility] Protein [Mass/Vol] 5.6 g/dL Low 6.0 - 8.0 g/dL [facility] Sodium [Moles/Vol] 139 mmol/L 134 - 146 mmol/L [facility] Urea nitrogen [Mass/Vol] 19 mg/dL 5 - 23 mg/dL [facility] Folateon 12-05-2023 Folate [Mass/Vol] 9.7 ng/mL 5.8 - PINF ng/mL [facility] Comment on above: NEW REFERENCE RANGE Folate [Mass/Vol]on 12-05-19 [facility] Iron and TIBCon 12-05-2023 Interpretation and review of laboratory results Abnormal [facility] Iron [Mass/Vol] ug/dL Low 50 - 170 ug/dL [facility] Iron binding capacity [Mass/Vol] 272 ug/dL 250 - 425 ug/dL [facility] Iron saturation [Mass fraction] Low [facility] MAGNESIUMon 12-05-2023 Magnesium [Mass/Vol] 1.8 mg/dL Normal 1.8-2.6 [facility] Comment on above: Performed By: #### B MP, CBC #### [facility] ([id number]) [address] [place] [address] #### 6793-4 #### [facility] ([id number]) [address] [place] [address] Magnesium [Mass/Vol] 1.5 mg/dL Low 1.8-2.6 [facility] Comment on above: Performed By: #### C BCA, CMP, 11065-1, 9237-1 ####[facility] ([id number])[address] [place] [address] Magnesiumon 12-05-2023 Magnesium [Mass/Vol] 1.8 mg/dL 1.8 - 2 .6 mg/dL [facility] Magnesium [Mass/Vol] 1.5 mg/dL Low 1.8 - 2 .6 mg/dL [facility] No Panel Informationon 12-04 [facility] Interpretation and review of laboratory results Abnormal [facility] PHOSPHORUSon 12-05-2023 Phosphate [Mass/Vol] 4.1 mg/dL Normal 2.4-4.9 [facility] Comment on above: Performed By: #### B MP, CBC #### [facility] ([id number]) [address] [place] [address] #### 6793-4 #### [facility] ([id number]) [address] [place] [address], [address] [place] [address] POTASSIUMon 12-05-2023 Potassium [Moles/Vol] 3.6 mmol/L Normal 3.5-5.0 [facility] Comment on above: Performed By: #### B MP, CBC #### [facility] ([id number]) [address] [place] [address] #### 6793-4 #### [facility] ([id number]) [address] [place] [address], [address] [place] [address] Phosphoruson 12-05-2023 Phosphate [Mass/Vol] 4.1 mg/dL 2.4 - 4 .9 mg/dL [facility] Potassiumon 12-05-2023 Potassium [Moles/Vol] 3.6 mmol/L 3.5 - 5.0 mmol/L [facility] RESP PATHOGENS/RHEL-VxG-1al 12-05-2023 Respiratory pathogens DNA and RNA panel KYLE+non-probe (Nph) SPECIMEN SOURCE NASO PHARYNX ADENOVIRUS Not detected (qualifier value) CORONAVIRUS 229E Not detected (qualifier value) CORONAVIRUS HKU1 Not detected (qualifier value) CORONAVIRUS NL63 Not detected (qualifier value) CORONAVIRUS OC43 Not detected (qualifier value) HUMAN METAPNEUVIRUS Not detected (qualifier value) RHINO/ENTEROVIRUS Not detected (qualifier value) INFLUENZA A Not detected (qualifier value) INFLUENZA B Not detected (qualifier value) PARAINFLUENZA 1 Not detected (qualifier value) PARAINFLUENZA 2 Not detected (qualifier value) PARAINFLUENZA 3 Not detected (qualifier value) PARAINFLUENZA 4 Not detected (qualifier value) RESP SYNCYTIAL VIRUS Not detected (qualifier value) BORD PARAPERTUSSIS Not detected (qualifier value) BORDETELLA PERTUSSIS Not detected (qualifier value) CHLAM.PNEUMONIAE Not detected (qualifier value) MYCO. PNEUMONIAE Not detected (qualifier value) SARS CoV 2 Not detected (qualifier value) NOTE The BioFire Respiratory Panel 2.1 (RP2.1) is a multiplexed nucleic acid test intended for the simultaneous qualitative detection and differentiation of nucleic acid from multiple viral and bacterial respiratory organisms, including nucleic acid from Severe Acute Respiratory Syndrome Coronavirus 2 (SARS-CoV-2), in nasopharyngeal swabs obtained from individuals suspected of COVID-19 by their healthcare provider. Testing is limited to laboratories certified under the Clinical Laboratory Improvement Amendments of 1988 (CLIA), to perform high complexity or moderate complexity tests. SARS-CoV-2 RNA and nucleic acids from the other respiratory viral and bacterial organisms identified by this test are generally detectable in nasopharyngeal swabs during the acute phase of infection. The detection and identification of specific viral and bacterial nucleic acids from individuals exhibiting signs and/or symptoms of respiratory infection is indicative of the presence of the identified microorganism and aids in the diagnosis of respiratory infection if used in conjunction with other clinical and epidemiological information. Positive results are indicative of the presence of the identified organism, but do not rule out co-infection with other pathogens. The agent(s) detected by the BioFire RP2.1 may not be the definite cause of disease and clinical correlation with patient history and other diagnostic information is necessary to determine patient infection status. Negative results in the setting of a respiratory illness may be due to infection with pathogens not detected by this test, or lower respiratory tract infection that may not be detected by a nasopharyngeal specimen. Negative results do not preclude SARS-CoV-2 infection and should not be used as the sole basis for patient management decisions. Negative CARMELLA-CoV-2 results must be combined with clinical observations, patient history and epidemiological information. Negative results for other organisms identified by the test may require additional laboratory testing when evaluating a patient with possible respiratory tract infection. Normal [facility] Comment on above: Performed By: #### B MP, CBC #### [facility] ([id number]) [address] [place] [address] #### 6793-4 #### [facility] ([id number]) [address] [place] [address], [address] [place] [address] Respiratory pathogens DNA an d RNA panel KYLE+non-probe (Nph)on 12-05-2023 Adenovirus DNA KYLE+non-probe Ql (Nph) Not detected Not Detected^N ot Detected [facility] B. parapertussis [id number] DNA KYLE+non-probe Ql (Nph) Not detected Not Detected^N ot Detected [facility] B. pertussis toxin promoter region KYLE+non-probe Ql (Nph) Not detected Not Detected^N ot Detected [facility] C. pneumoniae DNA KYLE+non-probe Ql (Nph) Not detected Not Detected^N ot Detected [facility] FLUAV RNA KYLE+non-probe Ql (Nph) Not detected Not Detected^N ot Detected [facility] FLUBV RNA KYLE+non-probe Ql (Nph) Not detected Not Detected^N ot Detected [facility] HCoV 229E RNA KYLE+non-probe Ql (Nph) Not detected Not Detected^N ot Detected [facility] HCoV HKU1 RNA KYLE+non-probe Ql (Nph) Not detected Not Detected^N ot Detected [facility] HCoV NL63 RNA KYLE+non-probe Ql (Nph) Not detected Not Detected^N ot Detected [facility] HCoV OC43 RNA KYLE+non-probe Ql (Nph) Not detected Not Detected^N ot Detected [facility] hMPV RNA KYLE+non-probe Ql (Nph) Not detected Not Detected^N ot Detected [facility] M. pneumoniae DNA KYLE+non-probe Ql (Nph) Not detected Not Detected^N ot Detected [facility] Parainfluenza virus 1 RNA KYLE+non-probe Ql (Nph) Not detected Not Detected^N ot Detected [facility] Parainfluenza virus 2 RNA KYLE+non-probe Ql (Nph) Not detected Not Detected^N ot Detected [facility] Parainfluenza virus 3 RNA KYLE+non-probe Ql (Nph) Not detected Not Detected^N ot Detected [facility] Parainfluenza virus 4 RNA KYLE+non-probe Ql (Nph) Not detected Not Detected^N ot Detected [facility] Rhinovirus+Enterovirus RNA KYLE+non-probe Ql (Nph) Not detected Not Detected^N ot Detected [facility] RSV RNA KYLE+non-probe Ql (Nph) Not detected Not Detected^N ot Detected [facility] SARS-CoV-2 (COVID-19) RNA KYLE+probe Ql (Resp) Not detected Not Detected^N ot Detected [facility] Comment on above: NOTE The [employer] GolfFire Respiratory Panel 2.1 (RP2.1) is a multiplexed nucleic acid test intended for the simultaneous qualitative detection and differentiation of nucleic acid from multiple viral and bacterial respiratory organisms, including nucleic acid from Severe Acute Respiratory Syndrome Coronavirus 2 (SARS-CoV-2), in nasopharyngeal swabs obtained from individuals suspected of COVID-19 by their healthcare provider. Testing is limited to laboratories certified under the Clinical Laboratory Improvement Amendments of 1988 (CLIA), to perform high complexity or moderate complexity tests. SARS-CoV-2 RNA and nucleic acids from the other respiratory viral and bacterial organisms identified by this test are generally detectable in nasopharyngeal swabs during the acute phase of infection. The detection and identification of specific viral and bacterial nucleic acids from individuals exhibiting signs and/or symptoms of respiratory infection is indicative of the presence of the identified microorganism and aids in the diagnosis of respiratory infection if used in conjunction with other clinical and epidemiological information. Positive results are indicative of the presence of the identified organism, but do not rule out co-infection with other pathogens. The agent(s) detected by the BioFire RP2.1 may not be the definite cause of disease and clinical correlation with patient history and other diagnostic information is necessary to determine patient infection status. Negative results in the setting of a respiratory illness may be due to infection with pathogens not detected by this test, or lower respiratory tract infection that may not be detected by a nasopharyngeal specimen. Negative results do not preclude SARS-CoV-2 infection and should not be used as the sole basis for patient management decisions. Negative CARMELLA-CoV-2 results must be combined with clinical observations, patient history and epidemiological information. Negative results for other organisms identified by the test may require additional laboratory testing when evaluating a patient with possible respiratory tract infection. Specimen source Nom (Body fld) NASO PHARYNX [facility] Vitamin B12on 12-05-2023 Cobalamin (Vitamin B12) [Mass/Vol] 185 pg/mL 180 - 914 pg/mL [facility] XR CHEST 1 VWon 12-05-2023 XR CHEST 1 VW XR CHEST 1 VW Clinical history: Fever Views: 1 Comparison: None Findings/Impression: 1. Heart size stable. No focal infiltrate or volume loss. No pneumothorax. 2. Scoliosis. 3. No pneumothorax nor large effusion. 4. In summary findings most consistent with mild vascular congestion.. Finalized by Brice Sanders MD on 12/05/2023 12:16 PM Normal [facility] XR Chest Single viewon 12-04 Clinical history: Fever Views: 1 Comparison: None Findings/Impression: 1. Heart size stable. No focal infiltrate or volume loss. No pneumothorax. 2. Scoliosis. 3. No pneumothorax nor large effusion. 4. In summary findings most consistent with mild vascular congestion.. Finalized by Brice Sanders MD on 12/05/2023 12:16 PM SECTRABrice Goins MD - 12/05/2023 Clinical history: Fever Views: 1 Comparison: None Findings/Impression: 1. Heart size stable. No focal infiltrate or volume loss. No pneumothorax. 2. Scoliosis. 3. No pneumothorax nor large effusion. 4. In summary findings most consistent with mild vascular congestion.. Finalized by Brice Sanders MD on 12/05/2023 12:16 PM [facility] Radiology Study observation (narrative) [facility] XR Chest Single viewOrdered By: Brice Sanders on 12-05-2023 [facility] Work Phone: Bacteria identified Cx Nom ( U)on 12-04-2023 Service comment (Unsp spec) [Interp] NO GROWTH AT <1000 CFU/mL [facility] CBC AND AUTO DIFFon 12-04-19 24 ABSOLUTE BASOPHIL 0.0 X10E9/L Normal 0.0-0.2 [facility] Comment on above: Performed By: #### 2 823-3 #### [facility] ([id number]) [address] [place] [address] ABSOLUTE NEUTROPHIL 3.1 X10E9/L Normal 1.5-6.6 [facility] Comment on above: Performed By: #### 2 823-3 #### [facility] ([id number]) [address] [facility] [place] [address] Basophils/100 WBC (Bld) 0.3 % Normal [facility] Comment on above: Performed By: #### 2 823-3 #### [facility] ([id number]) [address] [place] [address] Eosinophils (Bld) [#/Vol] 0.4 10*3/uL Normal 0.0-0.4 [facility] Comment on above: Performed By: #### 2 823-3 #### [facility] ([id number]) [address] [place] [address] Eosinophils/100 WBC (Bld) 8.5 % Normal [facility] Comment on above: Performed By: #### 2 823-3 #### [facility] ([id number]) [address] [facility] [place] [address] Erythrocyte distribution width (RBC) [Ratio] 14.0 % Normal 11.5-15.0 [facility] Comment on above: Performed By: #### 2 823-3 #### [facility] ([id number]) [address] [place] [address] Hematocrit (Bld) [Volume fraction] 21.2 % Low 35-47 [facility] Comment on above: Performed By: #### 2 823-3 #### [facility] ([id number]) [address] [facility] [place] [address] Hemoglobin (Bld) [Mass/Vol] 7.3 g/dL Low 11.7-15.5 [facility] Comment on above: Performed By: #### 2 823-3 #### [facility] ([id number]) [address] [place] [address] Lymphocytes (Bld) [#/Vol] 0.4 10*3/uL Low 1.0-3.5 [facility] Comment on above: Performed By: #### 2 823-3 #### [facility] ([id number]) [address] [place] [address] Lymphocytes/100 WBC (Bld) 10.0 % Normal [facility] Comment on above: Performed By: #### 2 823-3 #### [facility] ([id number]) [address] [place] [address] MCH (RBC) [Entitic mass] 30.7 pg Normal 27-34 [facility] Comment on above: Performed By: #### 2 823-3 #### [facility] ([id number]) [address] [place] [address] MCHC (RBC) [Mass/Vol] 34.3 g/dL Normal 32-36 [facility] Comment on above: Performed By: #### 2 823-3 #### [facility] ([id number]) [address] [place] [address] MCV (RBC) [Entitic vol] 90 fL Normal 80-100 [facility] Comment on above: Performed By: #### 2 823-3 #### [facility] ([id number]) [address] [place] [address] Monocytes (Bld) [#/Vol] 0.5 10*3/uL Normal 0-0.9 [facility] Comment on above: Performed By: #### 2 823-3 #### [facility] ([id number]) [address] [place] [address] Monocytes/100 WBC (Bld) 10.6 % Normal [facility] Comment on above: Performed By: #### 2 823-3 #### [facility] ([id number]) [address] [place] [address] Neutrophils/100 WBC (Bld) 70.6 % Normal [facility] Comment on above: Performed By: #### 2 823-3 #### [facility] ([id number]) [address] [place] [address] Platelet mean volume (Bld) [Entitic vol] 6.4 fL Low 7-12 [facility] Comment on above: Performed By: #### 2 823-3 #### [facility] ([id number]) [address] [place] [address] Platelets (Bld) [#/Vol] 201 10*3/uL Normal 150-450 [facility] Comment on above: Performed By: #### 2 823-3 #### [facility] ([id number]) [address] [place] [address] RBC COUNT 2.37 X10E12/L Low 3.80-5.20 [facility] Comment on above: Performed By: #### 2 823-3 #### [facility] ([id number]) [address] [place] [address] WBC (Bld) [#/Vol] 4.3 10*3/uL Normal 4.0-11.0 [facility] Comment on above: Performed By: #### 2 823-3 #### [facility] ([id number]) [address] [place] [address] CBC auto differentialon 10-0 Basophils (Bld) [#/Vol] 0.0 10*3/uL [facility] Basophils/100 WBC (Bld) 0.3 % [facility] Eosinophils (Bld) [#/Vol] 0.4 10*3/uL [facility] Eosinophils/100 WBC (Bld) 8.5 % [facility] Erythrocyte distribution width (RBC) [Ratio] 14.0 % 11.5 - 15.0 % [facility] Hematocrit (Bld) [Volume fraction] 21.2 % Low 35 - 47 % [facility] Hemoglobin (Bld) [Mass/Vol] 7.3 g/dL Low 11.7 - 15.5 g/dL [facility] Interpretation and review of laboratory results Abnormal [facility] Lymphocytes (Bld) [#/Vol] 0.4 10*3/uL Low [facility] Lymphocytes/100 WBC (Bld) 10.0 % [facility] MCH (RBC) [Entitic mass] 30.7 pg 27 - 34 pg [facility] MCHC (RBC) [Mass/Vol] 34.3 g/dL 32 - 3 6 g/dL [facility] MCV (RBC) [Entitic vol] 90 fL 80 - 100 fL [facility] Monocytes (Bld) [#/Vol] 0.5 10*3/uL [facility] Monocytes/100 WBC (Bld) 10.6 % [facility] Neutrophils (Bld) [#/Vol] 3.1 10*3/uL [facility] Neutrophils/100 WBC (Bld) 70.6 % [facility] Platelet mean volume (Bld) [Entitic vol] 6.4 fL Low 7 - 12 fL [facility] Platelets (Bld) [#/Vol] 201 10*3/uL [facility] RBC (Bld) [#/Vol] 2.37 10*6/uL Low [facility] WBC corrected for nucl RBC Auto (Bld) [#/Vol] 4.3 [facility] COMPREHENSIVE METABOLIC PANE [place] 12-04-2023 Albumin [Mass/Vol] 3.2 g/dL Normal 3.2-5.3 [facility] Comment on above: Performed By: #### 2 823-3 #### [facility] ([id number]) [address] [place] [address] ALP [Catalytic activity/Vol] 56 U/L Normal 39-130 [facility] Comment on above: Performed By: #### 2 823-3 #### [facility] ([id number]) [address] [place] [address] ALT [Catalytic activity/Vol] 9 U/L Normal 0-31 [facility] Comment on above: Performed By: #### 2 823-3 #### [facility] ([id number]) [address] [facility] [place] [address] Anion gap [Moles/Vol] 6 mmol/L Normal 5-15 [facility] Comment on above: Performed By: #### 2 823-3 #### [facility] ([id number]) [address] [facility] [place] [address] AST [Catalytic activity/Vol] 15 U/L Normal 0-41 [facility] Comment on above: Performed By: #### 2 823-3 #### [facility] ([id number]) [address] [place] [address] Bilirubin [Mass/Vol] 0.5 mg/dL Normal 0.3-1.2 [facility] Comment on above: Performed By: #### 2 823-3 #### [facility] ([id number]) [address] [place] [address] Calcium [Mass/Vol] 9.2 mg/dL Normal 8.5-10.5 [facility] Comment on above: Performed By: #### 2 823-3 #### [facility] ([id number]) [address] [place] [address] Chloride [Moles/Vol] 107 mmol/L Normal 98-109 [facility] Comment on above: Performed By: #### 2 823-3 #### [facility] ([id number]) [address] [place] [address] CO2 [Moles/Vol] 25 mmol/L Normal 22-32 [facility] Comment on above: Performed By: #### 2 823-3 #### [facility] ([id number]) [address] [place] [address] Creatinine [Mass/Vol] 2.81 mg/dL High 0.40-1.00 [facility] Comment on above: Result Comment: METH OD TRACEABLE TO IDMS STANDARD Performed By: #### 2 823-3 #### [facility] ([id number]) [address] [place] [address] GFR/1.73 sq M.predicted among non-blacks MDRD (S/P/Bld) [Vol rate/Area] 19 mL/min/{1.73_m2} Low >59 [facility] Comment on above: Result Comment: Reported eGFR is based on the CKD-EPI 2020 equation that does not use a race coefficient. Performed By: #### 2 823-3 #### [facility] ([id number]) [address] [place] [address] Glucose [Mass/Vol] 91 mg/dL Normal 65-99 [facility] Comment on above: Performed By: #### 2 823-3 #### [facility] ([id number]) [address] [place] [address] Potassium [Moles/Vol] 3.4 mmol/L Low 3.5-5.0 [facility] Comment on above: Performed By: #### 2 823-3 #### [facility] ([id number]) [address] [place] [address] Protein [Mass/Vol] 5.4 g/dL Low 6.0-8.0 [facility] Comment on above: Performed By: #### 2 823-3 #### [facility] ([id number]) [address] [place] [address] Sodium [Moles/Vol] 138 mmol/L Normal 134-146 [facility] Comment on above: Performed By: #### 2 823-3 #### [facility] ([id number]) [address] [place] [address] Urea nitrogen [Mass/Vol] 24 mg/dL High 5-23 [facility] Comment on above: Performed By: #### 2 823-3 #### [facility] ([id number]) [address] [place] [address] Calcium.ionized (Bld) [Mass/ Vol]on 12-04-2023 [facility] IONIZED CALCIUM 5.0 mg/dL Normal 4.5-5.3 [facility] Comment on above: Performed By: #### 2 823-3 #### [facility] ([id number]) [address] [place] [address] Comprehensive metabolic pane rome 12-04-2023 Albumin [Mass/Vol] 3.2 g/dL 3.2 - 5.3 g/dL [facility] ALP [Catalytic activity/Vol] 56 U/L 39 - 130 U/L [facility] ALT No additional P-5'-P [Catalytic activity/Vol] 9 U/L 0 - 31 U/L [facility] Anion gap [Moles/Vol] 6 mmol/L 5 - 15 mmol/L [facility] AST [Catalytic activity/Vol] 15 U/L 0 - 41 U/L [facility] Bilirubin [Mass/Vol] 0.5 mg/dL 0.3 - 1 .2 mg/dL [facility] Calcium [Mass/Vol] 9.2 mg/dL 8.5 - 10. 5 mg/dL [facility] Chloride [Moles/Vol] 107 mmol/L 98 - 10 9 mmol/L [facility] CO2 [Moles/Vol] 25 mmol/L 22 - 32 mmol/L [facility] Creatinine [Mass/Vol] 2.81 mg/dL High 0.40 - 1.00 mg/dL [facility] Comment on above: METHOD TRACEABLE TO [facility] STANDARD eGFR (CKD-EPI)non-race dependent 19 Low - PINF [facility] Comment on above: Reported eGFR is based on the CKD-EPI 2020 equation that does not use a race coefficient. Glucose [Mass/Vol] 91 mg/dL 65 - 99 mg/dL [facility] Interpretation and review of laboratory results Abnormal [facility] Potassium [Moles/Vol] 3.4 mmol/L Low 3.5 - 5.0 mmol/L [facility] Protein [Mass/Vol] 5.4 g/dL Low 6.0 - 8.0 g/dL [facility] Sodium [Moles/Vol] 138 mmol/L 134 - 146 mmol/L [facility] Urea nitrogen [Mass/Vol] 24 mg/dL High 5 - 23 mg/dL [facility] Folate [Mass/Vol]on 12-04-19 24 FOLIC ACID 9.7 ng/mL Normal >5.8 [facility] Comment on above: Result Comment: NEW REFERENCE RANGE Performed By: #### 2 823-3 ####[facility] ([id number])[address] [place] [address]#### 2284-8, 9, FEPR ####[facility] ([id number])[address], [place] [address] IRON PROFILEon 12-04-2023 Iron [Mass/Vol] ug/dL Low 50-170 [facility] Comment on above: Performed By: #### 2 823-3 ####[facility] ([id number])[address] [place] [address]#### 2284-8, 2131-11, FEPR ####[facility] ([id number])[address], [place] [address] IRON BINDING 272 ug/dL Normal 250-425 [facility] Comment on above: Performed By: #### 2 823-3 ####[facility] ([id number])[address] [place] [address]#### 2284-8, 2131-11, FEPR ####[facility] ([id number])[address], [address] [place] [address] IRON SATURATION <4 Low 15-50 [facility] Comment on above: Performed By: #### 2 823-3 ####[facility] ([id number])[address] [place] [address]#### 2284-8, 2131-11, FEPR ####[facility] ([id number])[address], [place] [address] Ionized calciumon 12-04-2023 Calcium.ionized (Bld) [Mass/Vol] 5.0 mg/dL 4.5 - 5.3 mg/dL [facility] MAGNESIUMon 12-04-2023 Magnesium [Mass/Vol] 1.9 mg/dL Normal 1.8-2.6 [facility] Comment on above: Performed By: #### 2 823-3 #### [facility] ([id number]) [address] [place] [address] Magnesiumon 12-04-2023 Magnesium [Mass/Vol] 1.9 mg/dL 1.8 - 2 .6 mg/dL [facility] No Panel Informationon 12-03 [facility] PHOSPHORUSon 12-04-2023 Phosphate [Mass/Vol] 3.9 mg/dL Normal 2.4-4.9 [facility] Comment on above: Performed By: #### 2 823-3 #### [facility] ([id number]) [address] [place] [address] POTASSIUMon 12-04-2023 Potassium [Moles/Vol] 3.7 mmol/L Normal 3.5-5.0 [facility] Comment on above: Performed By: #### 2 823-3 ####[facility] ([id number])[facility] [place] [address]#### 2284-8, 2132-9, FEPR ####[facility] ([id number])[address] [facility], [address], [place] [address] Phosphoruson 12-04-2023 Phosphate [Mass/Vol] 3.9 mg/dL 2.4 - 4 .9 mg/dL [facility] Potassiumon 12-04-2023 Potassium [Moles/Vol] 3.7 mmol/L 3.5 - 5.0 mmol/L [facility] Potassium [Moles/Vol]on [facility] Protein electrophoresis, ser umon 12-04-2023 Albumin [Mass/Vol] 3.1 g/dL Low 3.4 - 5.3 g/dL [facility] Alpha 1 globulin Elph [Mass/Vol] 0.4 g/dL 0.1 - 0.4 g/dL [facility] Alpha 2 globulin Elph [Mass/Vol] 0.7 g/dL 0.4 - 1.1 g/dL [facility] Beta globulin Elph [Mass/Vol] 0.7 g/dL 0.5 - 1.2 g/dL [facility] Gamma globulin Elph [Mass/Vol] 0.6 g/dL 0.5 - 1.6 g/dL [facility] Interpretation and review of laboratory results Abnormal [facility] Pathologist interpretation (Bld) [Interp] Unremarkable protein distribution, no monoclonal bands. [facility] Protein [Mass/Vol] 5.4 g/dL Low 6.0 - 8.0 g/dL [facility] US RETROPERITONEAL COMPLETEo n 12-04-2023 US RETROPERITONEAL COMPLETE US RETROPERITONEAL COMPLETE ULTRASOUND RETROPERITONEUM INDICATION: Acute renal injury. COMPARISON: None available. FINDINGS: Ultrasound evaluation of the kidneys and bladder was performed. Right kidney: 11.4 cm in maximal length. No collecting system dilatation, calculi, or contour deforming mass lesion. Left kidney: 14.7 cm in maximal length. No collecting system dilatation, calculi, or contour deforming mass lesion. Bladder: Unremarkable fluid filled bladder. Ureteral jets not seen. IMPRESSION: 1. No acute abnormality. No stone or collecting system dilatation. Finalized by Jesus Jack MD on 12/04/2023 9:23 AM Normal [facility] US Retroperitoneumon 024 ULTRASOUND RETROPERITONEUM INDICATION: Acute renal injury. COMPARISON: None available. FINDINGS: Ultrasound evaluation of the kidneys and bladder was performed. Right kidney: 11.4 cm in maximal length. No collecting system dilatation, calculi, or contour deforming mass lesion. Left kidney: 14.7 cm in maximal length. No collecting system dilatation, calculi, or contour deforming mass lesion. Bladder: Unremarkable fluid filled bladder. Ureteral jets not seen. IMPRESSION: 1. No acute abnormality. No stone or collecting system dilatation. Finalized by Jesus Jack MD on 12/04/2023 9:23 AM [facility] Jesus Jack MD - 12/04/2023 ULTRASOUND RETROPERITONEUM INDICATION: Acute renal injury. COMPARISON: None available. FINDINGS: Ultrasound evaluation of the kidneys and bladder was performed. Right kidney: 11.4 cm in maximal length. No collecting system dilatation, calculi, or contour deforming mass lesion. Left kidney: 14.7 cm in maximal length. No collecting system dilatation, calculi, or contour deforming mass lesion. Bladder: Unremarkable fluid filled bladder. Ureteral jets not seen. IMPRESSION: 1. No acute abnormality. No stone or collecting system dilatation. Finalized by Jesus Jack MD on 12/04/2023 9:23 AM [email or web address] Radiology Study observation (narrative) [employer] US RetroperitoneumOrdered By : Jesus Jack on 12-04-2023 [email or web address] Work Phone: VITAMIN B12on 12-04-2023 Cobalamin (Vitamin B12) [Mass/Vol] 185 pg/mL Normal 180-914 [facility] Comment on above: Performed By: #### 2 823-3 ####[facility] ([id number])[address] [place] [address]#### 2284-8, 2132-9, FEPR ####[facility] ([id number])[address] [facility], [address], [place] [address] JUSTIN Screen w/ Reflexon 12-02 Nuclear Ab IA Ql (S) Negative Negativ e^N egative [facility] Comment on above: Testing performed using multiplex flow immunoassay. Eleven different antigens associated with systemic autoimmune diseases (dsDNA,Sm,Sm/MDM SR,MDM SR,Chromatin, SSA,SSB,Alice-1,Scl70,Ribo P,Centromere B) are included in this screening test. APTTon 12-03-2023 aPTT Coag (PPP) [Time] 35 s Pr [facility] Auto Diff (add on use only)o n 12-03-2023 Basophils (Bld) [#/Vol] 0.0 10*3/uL [email or web address] Basophils/100 WBC (Bld) 0.4 % [facility] [employer] Eosinophils (Bld) [#/Vol] 0.3 10*3/uL [facility] Eosinophils/100 WBC (Bld) 6.0 % [facility] Lymphocytes (Bld) [#/Vol] 0.6 10*3/uL Low [facility] Lymphocytes/100 WBC (Bld) 10.9 % [facility] Monocytes (Bld) [#/Vol] 0.5 10*3/uL [facility] Monocytes/100 WBC (Bld) 9.4 % [facility] Neutrophils (Bld) [#/Vol] 4.2 10*3/uL [facility] Neutrophils/100 WBC (Bld) 73.3 % [facility] CBC without diffon Erythrocyte distribution width (RBC) [Ratio] 14.2 % 11.5 - 15.0 % [facility] Hematocrit (Bld) [Volume fraction] 22.9 % Low 35 - 47 % [facility] Hemoglobin (Bld) [Mass/Vol] 8.0 g/dL Low 11.7 - 15.5 g/dL [facility] MCH (RBC) [Entitic mass] 31.3 pg 27 - 34 pg [facility] MCHC (RBC) [Mass/Vol] 34.9 g/dL 32 - 3 6 g/dL [facility] MCV (RBC) [Entitic vol] 90 fL 80 - 100 fL [facility] Platelet mean volume (Bld) [Entitic vol] 6.5 fL Low 7 - 12 fL [facility] Platelets (Bld) [#/Vol] 233 10*3/uL [facility] RBC (Bld) [#/Vol] 2.55 10*6/uL Low [facility] WBC corrected for nucl RBC Auto (Bld) [#/Vol] 5.8 [facility] CK Totalon 12-03-2023 CK [Catalytic activity/Vol] 52 U/L 24 - 170 U/L [facility] CK [Catalytic activity/Vol]o n 12-03-2023 [facility] CPK 52 U/L Normal 24-170 [facility] Comment on above: Performed By: #### 2 157-6 ####[facility] ([id number])[address] [place] [address]#### C34, SPE, 54773-3, 05416-0, 6969-0, 6968-2 ####[facility] ([id number])[address] [facility] [address] [place] [address] COMPLEMENT PROFILEon 024 COMPLEMENT C3 158 mg/dL Normal 86-184 [facility] Comment on above: Performed By: #### 2 157-6 ####[facility] ([id number])[address] [place] [address]#### C34, SPE, 49779-0, 10220-8, 6969-0, 6968-2 ####[facility] ([id number])[address] [facility], [address] [place] [address] COMPLEMENT C4 38 mg/dL Normal 16-47 [facility] Comment on above: Performed By: #### 2 157-6 ####[facility] ([id number])[address] [place] [address]#### C34, SPE, 49738-9, 07817-9, 6969-0, 6968-2 ####[facility] ([id number])[address] [facility], [address] [place] [address] COMPLETE BLOOD COUNTon 12-02 Erythrocyte distribution width (RBC) [Ratio] 14.2 % Normal 11.5-15.0 [facility] Comment on above: Performed By: #### C BC, DIFFA, CMP, , 96516-1 ####[facility] ([id number])[address] [place] [address] Hematocrit (Bld) [Volume fraction] 22.9 % Low 35-47 [facility] Comment on above: Performed By: #### C BC, DIFFA, CMP, , 07210-6 ####[facility] ([id number])[address] [place] [address] Hemoglobin (Bld) [Mass/Vol] 8.0 g/dL Low 11.7-15.5 [facility] Comment on above: Performed By: #### C BC, DIFFA, CMP, , ####[facility] ([id number])[address] [place] [address] MCH (RBC) [Entitic mass] 31.3 pg Normal 27-34 [facility] Comment on above: Performed By: #### C BC, DIFFA, CMP, , ####[facility] ([id number])[address] [place] [address] MCHC (RBC) [Mass/Vol] 34.9 g/dL Normal 32-36 [facility] Comment on above: Performed By: #### C BC, DIFFA, CMP, , ####[facility] ([id number])[address] [facility] [place] [address] MCV (RBC) [Entitic vol] 90 fL Normal 80-100 [facility] Comment on above: Performed By: #### C BC, DIFFA, CMP, , ####[facility] ([id number])[address] [place] [address] Platelet mean volume (Bld) [Entitic vol] 6.5 fL Low 7-12 [facility] Comment on above: Performed By: #### C BC, DIFFA, CMP, , ####[facility] ([id number])[address] [place] [address] Platelets (Bld) [#/Vol] 233 10*3/uL Normal 150-450 [facility] Comment on above: Performed By: #### C BC, DIFFA, CMP, , ####[facility] ([id number])[address] [place] [address] RBC COUNT 2.55 X10E12/L Low 3.80-5.20 [facility] Comment on above: Performed By: #### C BC, DIFFA, CMP, ####[facility] ([id number])[address] [place] [address] WBC (Bld) [#/Vol] 5.8 10*3/uL Normal 4.0-11.0 [facility] Comment on above: Performed By: #### C BC, DIFFA, CMP, ####[facility] ([id number])[address] [place] [address] COMPREHENSIVE METABOLIC PANE [place] 12-03-2023 Albumin [Mass/Vol] 3.3 g/dL Normal 3.2-5.3 [facility] Comment on above: Performed By: #### C BC, DIFFA, CMP, ####[facility] ([id number])[address] [place] [address] ALP [Catalytic activity/Vol] 60 U/L Normal 39-130 [facility] Comment on above: Performed By: #### C BC, DIFFA, CMP, ####[facility] ([id number])[address] [place] [address] ALT [Catalytic activity/Vol] 10 U/L Normal 0-31 [facility] Comment on above: Performed By: #### C BC, DIFFA, CMP, ####[facility] ([id number])[address] [place] [address] Anion gap [Moles/Vol] 8 mmol/L Normal 5-15 [facility] Comment on above: Performed By: #### C BC, DIFFA, CMP, ####[facility] ([id number])[address] [place] [address] AST [Catalytic activity/Vol] 19 U/L Normal 0-41 [facility] Comment on above: Performed By: #### C BC, DIFFA, CMP, ####[facility] ([id number])[address] [place] [address] Bilirubin [Mass/Vol] 0.6 mg/dL Normal 0.3-1.2 [facility] Comment on above: Performed By: #### C BC, DIFFA, CMP, ####[facility] ([id number])[address] [facility] [address] Calcium [Mass/Vol] 9.2 mg/dL Normal 8.5-10.5 [facility] Comment on above: Performed By: #### C BC, DIFFA, CMP, ####[facility] ([id number])[address] [facility] [place] [address] Chloride [Moles/Vol] 104 mmol/L Normal 98-109 [facility] Comment on above: Performed By: #### C BC, DIFFA, CMP, ####[facility] ([id number])[address] [facility] [place] [address] CO2 [Moles/Vol] 25 mmol/L Normal 22-32 [facility] Comment on above: Performed By: #### C BC, DIFFA, CMP, ####[facility] ([id number])[address] [facility] [place] [address] Creatinine [Mass/Vol] 2.49 mg/dL High 0.40-1.00 [facility] Comment on above: Result Comment: METH OD TRACEABLE TO IDMS STANDARD Performed By: #### C BC, DIFFA, CMP, ####[facility] ([id number])[address] [facility] [place] [address] GFR/1.73 sq M.predicted among non-blacks MDRD (S/P/Bld) [Vol rate/Area] 23 mL/min/{1.73_m2} Low >59 [facility] Comment on above: Result Comment: Reported eGFR is based on the CKD-EPI 2020 equation that does not use a race coefficient. Performed By: #### C BC, DIFFA, CMP, ####[facility] ([id number])[address] [place] [address] Glucose [Mass/Vol] 103 mg/dL High 65-99 [facility] Comment on above: Performed By: #### C BC, DIFFA, CMP, ####[facility] ([id number])[address] [place] [address] Potassium [Moles/Vol] 3.1 mmol/L Low 3.5-5.0 [facility] Comment on above: Performed By: #### C BC, DIFFA, CMP, ####[facility] ([id number])[address] [place] [address] Protein [Mass/Vol] 5.5 g/dL Low 6.0-8.0 [facility] Comment on above: Performed By: #### C BC, DIFFA, CMP, ####[facility] ([id number])[address] [place] [address] Sodium [Moles/Vol] 137 mmol/L Normal 134-146 [facility] Comment on above: Performed By: #### C BC, DIFFA, CMP, ####[facility] ([id number])[address] [place] [address] Urea nitrogen [Mass/Vol] 25 mg/dL High 5-23 [facility] Comment on above: Performed By: #### C BC, DIFFA, CMP, ####[facility] ([id number])[address] [facility] [place] [address] Complement profile (C3 AND C 4)on 12-03-2023 Complement C3 [Mass/Vol] 158 mg/dL 86 - 184 mg/dL [facility] Complement C4 [Mass/Vol] 38 mg/dL 16 - 47 mg/dL [facility] Comprehensive metabolic pane rome 12-03-2023 Albumin [Mass/Vol] 3.3 g/dL 3.2 - 5.3 g/dL [facility] ALP [Catalytic activity/Vol] 60 U/L 39 - 130 U/L [facility] ALT No additional P-5'-P [Catalytic activity/Vol] 10 U/L 0 - 31 U/L [facility] Anion gap [Moles/Vol] 8 mmol/L 5 - 15 mmol/L [facility] AST [Catalytic activity/Vol] 19 U/L 0 - 41 U/L [facility] Bilirubin [Mass/Vol] 0.6 mg/dL 0.3 - 1 .2 mg/dL [facility] Calcium [Mass/Vol] 9.2 mg/dL 8.5 - 10. 5 mg/dL [facility] Chloride [Moles/Vol] 104 mmol/L 98 - 10 9 mmol/L [facility] CO2 [Moles/Vol] 25 mmol/L 22 - 32 mmol/L [facility] Creatinine [Mass/Vol] 2.49 mg/dL High 0.40 - 1.00 mg/dL [facility] Comment on above: METHOD TRACEABLE TO [facility] STANDARD eGFR (CKD-EPI)non-race dependent 23 Low - PINF [facility] Comment on above: Reported eGFR is based on the CKD-EPI 2020 equation that does not use a race coefficient. Glucose [Mass/Vol] 103 mg/dL High 65 - 99 mg/dL [facility] Potassium [Moles/Vol] 3.1 mmol/L Low 3.5 - 5.0 mmol/L [facility] Protein [Mass/Vol] 5.5 g/dL Low 6.0 - 8.0 g/dL [facility] Sodium [Moles/Vol] 137 mmol/L 134 - 146 mmol/L [facility] Urea nitrogen [Mass/Vol] 25 mg/dL High 5 - 23 mg/dL [facility] DIFFERENTIALon 12-03-2023 ABSOLUTE BASOPHIL 0.0 X10E9/L Normal 0.0-0.2 [facility] Comment on above: Performed By: #### C BC, DIFFA, CMP, , ####[facility] ([id number])[address] [facility] [place] [address] ABSOLUTE NEUTROPHIL 4.2 X10E9/L Normal 1.5-6.6 [facility] Comment on above: Performed By: #### C BC, DIFFA, CMP, , ####[facility] ([id number])[address] [facility] [place] [address] Basophils/100 WBC (Bld) 0.4 % Normal [facility] Comment on above: Performed By: #### C BC, DIFFA, CMP, , ####[facility] ([id number])[address] [facility] [place] [address] Eosinophils (Bld) [#/Vol] 0.3 10*3/uL Normal 0.0-0.4 [facility] Comment on above: Performed By: #### C BC, DIFFA, CMP, , ####[facility] ([id number])[address] [place] [address] Eosinophils/100 WBC (Bld) 6.0 % Normal [facility] Comment on above: Performed By: #### C BC, DIFFA, CMP, ####[facility] ([id number])[address] [facility] [place] [address] Lymphocytes (Bld) [#/Vol] 0.6 10*3/uL Low 1.0-3.5 [facility] Comment on above: Performed By: #### C BC, DIFFA, CMP, , ####[facility] ([id number])[address] [facility] [place] [address] Lymphocytes/100 WBC (Bld) 10.9 % Normal [facility] Comment on above: Performed By: #### C BC, DIFFA, CMP, , ####[facility] ([id number])[address] [facility] [place] [address] Monocytes (Bld) [#/Vol] 0.5 10*3/uL Normal 0-0.9 [facility] Comment on above: Performed By: #### C BC, DIFFA, CMP, , ####[facility] ([id number])[address] [facility] [place] [address] Monocytes/100 WBC (Bld) 9.4 % Normal [facility] Comment on above: Performed By: #### C BC, DIFFA, CMP, , ####[facility] ([id number])[address] [facility] [place] [address] Neutrophils/100 WBC (Bld) 73.3 % Normal [facility] Comment on above: Performed By: #### C BC, DIFFA, CMP, , ####[facility] ([id number])[address] [facility] [place] [address] ECG 12 leadon 12-03-2023 TRACEMASTERVUE [facility] Glomerular basement membrane IgG ABon 12-03-2023 Glomerular basement membrane IgG Qn (S) NINF [facility] Glomerular basement membrane IgG Qn (S)on 12-03-2023 GBM IgG Ab <0.2 Normal <1.0 [facility] Comment on above: Performed By: #### 2 157-6 ####[facility] ([id number])[address] [facility] [place] [address]#### C34, SPE, 11092-3, 06554-5, 6969-0, 6968-2 ####[facility] ([id number])[address] [facility], [address] [place] [address] MAGNESIUMon 12-03-2023 Magnesium [Mass/Vol] 2.2 mg/dL Normal 1.8-2.6 [facility] Comment on above: Performed By: #### 2 823-3, ####[facility] ([id number])[address] [place] [address] Magnesium [Mass/Vol] 1.5 mg/dL Low 1.8-2.6 [facility] Comment on above: Performed By: #### C BC, DIFFA, CMP, , 95001-4 ####[facility] ([id number])[address] [place] [address] Magnesiumon 12-03-2023 Magnesium [Mass/Vol] 2.2 mg/dL 1.8 - 2 .6 mg/dL [facility] Magnesium [Mass/Vol] 1.5 mg/dL Low 1.8 - 2 .6 mg/dL [facility] Myeloperoxidase ABon 024 Myeloperoxidase Ab Qn (S) NINF [facility] Myeloperoxidase Ab Qn (S)on 12-03-2023 Myeloperoxidase Ab <0.2 Normal <1.0 [facility] Comment on above: Performed By: #### 2 157-6 ####[facility] ([id number])5200 [place] [address]#### C34, SPE, 29532-1, 36257-4, 6969-0, 6968-2 ####[facility] ([id number])2130 [facility] [address] [place] [address] No Panel Informationon 12-02 [facility] Interpretation and review of laboratory results Abnormal [facility] Interpretation and review of laboratory results Abnormal [facility] Nuclear Ab IA Ql (S)on 12-02 [facility] JUSTIN Screen w/reflex Negative Normal NEG [facility] Comment on above: Result Comment: Testing performed using multiplex flow immunoassay. Eleven different antigens associated with systemic autoimmune diseases (dsDNA,Sm,Sm/MDM SR,MDM SR,Chromatin, SSA,SSB,Alice-1,Scl70,Ribo P,Centromere B) are included in this screening test. Performed By: #### 2 157-6 ####[facility] ([id number])[address] [place] [address]#### C34, SPE, 61183-5, 83139-8, 6969-0, 6968-2 ####[facility] ([id number])[address] [facility], [address] [place] [address] POTASSIUMon 12-03-2023 Potassium [Moles/Vol] 3.6 mmol/L Normal 3.5-5.0 [facility] Comment on above: Performed By: #### 2 823-3, 44915-7 ####[facility] ([id number])[address] [place] [address] PROTEIN CREAT RATIOon 2023 RANDOM URINE PROTEIN 130 mg/L High <120 [facility] Comment on above: Performed By: #### 2 823-3 #### [facility] ([id number]) [facility] [place] [address] U/PRO/PROFESSOR OF HISTORY RATIO CALC 0.30 High <0.2 [facility] Comment on above: Result Comment: Neph rotic Syndrome is associated with ratios >3.5 Performed By: #### 2 823-3 #### [facility] ([id number]) [address] [place] [address] URINE CREATININE,RDM 43.64 mg/dL Normal [facility] Comment on above: Performed By: #### 2 823-3 #### [facility] ([id number]) [address] [place] [address] Potassiumon 12-03-2023 Potassium [Moles/Vol] 3.6 mmol/L 3.5 - 5.0 mmol/L [facility] Protein creat ratioon 10-03- 2024 Creatinine (U) [Mass/Vol] 43.64 mg/dL [facility] Interpretation and review of laboratory results Abnormal [facility] Protein (U) [Mass/Vol] 130 mg/L High NINF - 120 mg/L [facility] Protein/Creatinine (U) [Ratio] 0.30 High [facility] - 0.2 [facility] Comment on above: Nephrotic Syndrome i s associated with ratios >3.5 Proteinase 3 AB PR3on 2023 Proteinase 3 Ab Qn (S) NINF [facility] Proteinase 3 Ab Qn (S)on Proteinase 3 IgG Ab <0.2 Normal <1.0 [facility] Comment on above: Performed By: #### 2 157-6 ####[facility] ([id number])[address] [place] [address]#### C34, SPE, 30378-9, 07563-5, 6969-0, 6968-2 ####[facility] ([id number])[address] [facility], [address] [place] [address] SERUM PROTEIN ELECTROPHORESI Son 12-03-2023 Albumin [Mass/Vol] 3.1 g/dL Low 3.4-5.3 [facility] Comment on above: Performed By: #### 2 157-6 ####[facility] ([id number])[address] [place] [address]#### C34, SPE, 96588-9, 22946-4, 6969-0, 6968-2 ####[facility] ([id number])[address] [facility] [address] [place] [address] ALPHA 1 GLOBULIN 0.4 g/dL Normal 0.1-0.4 [facility] Comment on above: Performed By: #### 2 157-6 ####[facility] ([id number])[address] [place] [address]#### C34, SPE, 67777-3, 14375-9, 6969-0, 6968-2 ####[facility] ([id number])[address], [address], [place] [address] ALPHA 2 GLOBULIN 0.7 g/dL Normal 0.4-1.1 [facility] Comment on above: Performed By: #### 2 157-6 ####[facility] ([id number])[address] [place] [address]#### C34, SPE, 62287-6, 89307-7, 6969-0, 6968-2 ####[facility] ([id number])[address], [address] [place] [address] BETA GLOBULIN 0.7 g/dL Normal 0.5-1.2 [facility] Comment on above: Performed By: #### 2 157-6 ####[facility] ([id number])[address] [place] [address]#### C34, SPE, 27467-6, 05208-2, 6969-0, 6968-2 ####[facility] ([id number])[address], [address] [place] [address] GAMMA GLOBULIN 0.6 g/dL Normal 0.5-1.6 [facility] Comment on above: Performed By: #### 2 157-6 ####[facility] ([id number])[address] [place] [address]#### C34, SPE, 80838-4, 09850-3, 6969-0, 6968-2 ####[facility] ([id number])[address], [address] [place] [address] PROT. ELECTROPHORESIS INTERP Unremarkable protein distribution, no monoclonal bands. Normal [facility] Comment on above: Performed By: #### 2 157-6 ####[facility] ([id number])[address] [place] [address]#### C34, SPE, 40943-9, 46048-0, 6969-0, 6968-2 ####[facility] ([id number])[address], [address], [place] [address] Protein [Mass/Vol] 5.4 g/dL Low 6.0-8.0 [facility] Comment on above: Performed By: #### 2 157-6 ####[facility] ([id number])[address] [place] [address]#### C34, SPE, 45121-1, 55295-5, 6969-0, 6968-2 ####[facility] ([id number])[address], [place] [address] Sodium, urine, randomon Sodium (U) [Moles/Vol] 43 mmol/L Pr [facility] Sodium (U) [Moles/Vol] 53 mmol/L Pr [facility] URINALYSISon 12-03-2023 Bilirubin Ql (U) Negative Normal NEG [facility] Comment on above: Performed By: #### 2 823-3 #### [facility] ([id number]) [address] [place] [address] BLOOD/HGB Negative Normal NEG [facility] Comment on above: Performed By: #### 2 823-3 #### [facility] ([id number]) [address] [place] [address] Color (U) YELLOW Normal YELLOW [facility] Comment on above: Performed By: #### 2 823-3 #### [facility] ([id number]) [address] [place] [address] Glucose Ql (U) Negative Normal NEG [facility] Comment on above: Performed By: #### 2 823-3 #### [facility] ([id number]) [address] [place] [address] Ketones Ql (U) Negative Normal NEG [facility] Comment on above: Performed By: #### 2 823-3 #### [facility] ([id number]) [address] [facility] [place] [address] Leukocyte esterase Test strip Ql (U) Negative Normal NEG [facility] Comment on above: Performed By: #### 2 823-3 #### [facility] ([id number]) [address] [facility] [place] [address] Nitrite Ql (U) Negative Normal NEG [facility] Comment on above: Performed By: #### 2 823-3 #### [facility] ([id number]) [address] [facility] [place] [address] pH (U) 6.0 [pH] Normal 5.0-8.5 [facility] Comment on above: Performed By: #### 2 823-3 #### [facility] ([id number]) [address] [facility] [place] [address] Protein Ql (U) Negative Normal NEG [facility] Comment on above: Performed By: #### 2 823-3 #### [facility] ([id number]) [address] [facility] [place] [address] Specific gravity (U) [Rel density] 1.010 Normal 1.003-1.03 5 [facility] Comment on above: Performed By: #### 2 823-3 #### [facility] ([id number]) [address] [place] [address] TURBIDITY CLEAR Normal CLEAR [facility] Comment on above: Performed By: #### 2 823-3 #### [facility] ([id number]) [address] [facility] [place] [address] Urobilinogen Qn (U) 0.2 {Ansley'U}/dL Normal <1.1 [facility] Comment on above: Performed By: #### 2 823-3 #### [facility] ([id number]) [address] [place] [address] URINE SODIUM,RANDOMon 2023 Sodium (U) [Moles/Vol] 43 mmol/L Normal Pr [facility] Comment on above: Performed By: #### 2 823-3 #### [facility] ([id number]) [address] [place] [address] Urinalysison 12-03-2023 Bilirubin Ql (U) Negative Negative^N egative [facility] Color (U) YELLOW YELLOW^YEL LOW [facility] Glucose (U) [Mass/Vol] Negative Negat hallie^N egative mg/dL [facility] Hemoglobin Auto test strip Ql (U) Negative Negative^N egative [facility] Ketones (U) [Mass/Vol] Negative Negat hallie^N egative mg/dL [facility] Leukocyte esterase Auto test strip Ql (U) Negative Negative^N egative [facility] Nitrite Auto test strip Ql (U) Negative Negative^N egative [facility] pH (U) 6.0 [pH] 5.0 - 8.5 [facility] Protein (U) [Mass/Vol] Negative Negat hallie^N egative mg/dL [facility] Specific gravity Refractometry automated (U) [Rel density] 1.010 1.003 - 1.035 [facility] Turbidity Ql (U) CLEAR CLEAR^TWIN R [facility] Urobilinogen Qn (U) 0.2 NINF [facility] Bilirubin Ql (U) Negative Negative^N egative [facility] Color (U) YELLOW YELLOW^YEL LOW [facility] Epithelial cells Auto (Urine sed) [#/Area] 4 [facility] Glucose (U) [Mass/Vol] Negative Negat hallie^N egative mg/dL [facility] Hemoglobin Auto test strip Ql (U) Negative Negative^N egative [facility] Interpretation and review of laboratory results Abnormal [facility] Ketones (U) [Mass/Vol] Negative Negat hallie^N egative mg/dL [facility] Leukocyte esterase Auto test strip Ql (U) SMALL Abnormal Negative^N egative [facility] Nitrite Auto test strip Ql (U) Negative Negative^N egative [facility] pH (U) 6.0 [pH] 5.0 - 8.5 [facility] Protein (U) [Mass/Vol] Negative Negat hallie^N egative mg/dL [facility] RBC Auto (Urine sed) [#/Area] 0 [facility] Specific gravity Refractometry automated (U) [Rel density] 1.010 1.003 - 1.035 [facility] Turbidity Ql (U) CLEAR CLEAR^TWIN R [facility] Urobilinogen Qn (U) 0.2 NINF [facility] WBC Auto (Urine sed) [#/Area] 7 High [facility] Urine Creatinine,randomon Creatinine (U) [Mass/Vol] 56.74 mg/dL [facility] Vancomycin [Mass/Vol]on VANCOMYCIN 34.7 ug/mL Normal 5.0-40.0 [facility] Comment on above: Result Comment: Peak 30-40 ug/mL Trough 5-20 ug/ml Performed By: #### C BC, DIFFA, CMP, 29052-3, 15155-3 ####[facility] ([id number])[address] [place] [address] Vancomycin, randomon 024 Vancomycin [Mass/Vol] 34.7 ug/mL 5.0 - 40.0 ug/mL [facility] Comment on above: Peak 30-40 ug/mL Trough 5-20 ug/ml aPTT Coag (PPP) [Time]on [facility] BLOOD CULTUREon 12-02-2023 Bacteria identified Aer cx Nom (Bld) SPECIMEN NOTES SUBOPTIMAL VOLUME OF BLOOD COLLECTED, RESULTS MAY BE AFFECTED. CULTURE RESULTS NO GROWTH 5 DAYS Normal [facility] Comment on above: Performed By: #### 2 823-3 #### [facility] ([id number]) [address] [place] [address] Bacteria identified Aer cx Nom (Bld) SPECIMEN NOTES SUBOPTIMAL VOLUME OF BLOOD COLLECTED, RESULTS MAY BE AFFECTED. CULTURE RESULTS NO GROWTH 5 DAYS Normal [facility] Comment on above: Performed By: #### 2 823-3 #### [facility] ([id number]) [address] [place] [address] CBC AND AUTO DIFFon 12-02-19 24 ABSOLUTE BASOPHIL 0.0 X10E9/L Normal 0.0-0.2 [facility] Comment on above: Performed By: #### C BCA, 26054-8, CMP, 80502-9 ####[facility] ([id number])[address] [place] [address] ABSOLUTE NEUTROPHIL 6.3 X10E9/L Normal 1.5-6.6 [facility] Comment on above: Performed By: #### C BCA, 87497-5, CMP, 38328-0 ####[facility] ([id number])[address] [place] [address] Basophils/100 WBC (Bld) 0.3 % Normal [facility] Comment on above: Performed By: #### C BCA, 83643-2, CMP, 70175-5 ####[facility] ([id number])[address] [place] [address] Eosinophils (Bld) [#/Vol] 0.4 10*3/uL Normal 0.0-0.4 [facility] Comment on above: Performed By: #### C BCA, 66727-6, CMP, 87620-9 ####[facility] ([id number])[address] [place] [address] Eosinophils/100 WBC (Bld) 5.1 % Normal [facility] Comment on above: Performed By: #### C BCA, 42452-0, CMP, 65742-1 ####[facility] ([id number])[address] [place] [address] Erythrocyte distribution width (RBC) [Ratio] 14.2 % Normal 11.5-15.0 [facility] Comment on above: Performed By: #### C LUCIA, 21719-8, CMP, 53544-8 ####[facility] ([id number])[address] [place] [address] Hematocrit (Bld) [Volume fraction] 26.0 % Low 35-47 [facility] Comment on above: Performed By: #### C BCA, 76992-5, CMP, 77415-3 ####[facility] ([id number])[address] [facility] [place] [address] Hemoglobin (Bld) [Mass/Vol] 9.1 g/dL Low 11.7-15.5 [facility] Comment on above: Performed By: #### Jamal MYERS, 92663-7, CMP, 35171-5 ####[facility] ([id number])[address] [facility] [place] [address] Lymphocytes (Bld) [#/Vol] 0.5 10*3/uL Low 1.0-3.5 [facility] Comment on above: Performed By: #### Jamal MYERS, 44844-4, CMP, 09547-8 ####[facility] ([id number])[address] [facility] [place] [address] Lymphocytes/100 WBC (Bld) 6.7 % Normal [facility] Comment on above: Performed By: #### C BCA, 23314-1, CMP, 11226-5 ####[facility] ([id number])[address] [facility] [place] [address] MCH (RBC) [Entitic mass] 31.6 pg Normal 27-34 [facility] Comment on above: Performed By: #### C BCA, 53383-0, CMP, 39836-1 ####[facility] ([id number])[address] [place] [address] MCHC (RBC) [Mass/Vol] 35.1 g/dL Normal 32-36 [facility] Comment on above: Performed By: #### C LUCIA, 22932-2, CMP, 06248-8 ####[facility] ([id number])[address] [place] [address] MCV (RBC) [Entitic vol] 90 fL Normal 80-100 [facility] Comment on above: Performed By: #### C LUCIA, 13888-6, CMP, 72055-9 ####[facility] ([id number])[address] [facility] [place] [address] Monocytes (Bld) [#/Vol] 0.6 10*3/uL Normal 0-0.9 [facility] Comment on above: Performed By: #### C LUCIA, 11327-9, CMP, 85350-7 ####[facility] ([id number])[address] [facility] [place] [address] Monocytes/100 WBC (Bld) 7.5 % Normal [facility] Comment on above: Performed By: #### Jamal MYERS, 57020-8, CMP, 33188-3 ####[facility] ([id number])[address] [facility] [place] [address] Neutrophils/100 WBC (Bld) 80.4 % Normal [facility] Comment on above: Performed By: #### Jamal MYERS, 74897-8, CMP, 06688-2 ####[facility] ([id number])[address] [facility] [place] [address] Platelet mean volume (Bld) [Entitic vol] 6.7 fL Low 7-12 [facility] Comment on above: Performed By: #### Jamal BCA, 32679-6, CMP, 09310-9 ####[facility] ([id number])[address] [place] [address] Platelets (Bld) [#/Vol] 279 10*3/uL Normal 150-450 [facility] Comment on above: Performed By: #### C BCA, 95937-3, CMP, 84190-2 ####[facility] ([id number])[address] [place] [address] RBC COUNT 2.89 X10E12/L Low 3.80-5.20 [facility] Comment on above: Performed By: #### C BCA, 23391-8, [facility], 57757-6 ####[facility] ([id number])[address] [place] [address] WBC (Bld) [#/Vol] 7.8 10*3/uL Normal 4.0-11.0 [facility] Comment on above: Performed By: #### C BCA, 10654-6, [facility], 73700-5 ####[facility] ([id number])[address] [place] [address] CBC auto differentialon 10-0 Basophils (Bld) [#/Vol] 0.0 10*3/uL [facility] Basophils/100 WBC (Bld) 0.3 % [facility] Eosinophils (Bld) [#/Vol] 0.4 10*3/uL [facility] Eosinophils/100 WBC (Bld) 5.1 % [facility] Erythrocyte distribution width (RBC) [Ratio] 14.2 % 11.5 - 15.0 % [facility] Hematocrit (Bld) [Volume fraction] 26.0 % Low 35 - 47 % [facility] Hemoglobin (Bld) [Mass/Vol] 9.1 g/dL Low 11.7 - 15.5 g/dL [facility] Interpretation and review of laboratory results Abnormal [facility] Lymphocytes (Bld) [#/Vol] 0.5 10*3/uL Low [facility] Lymphocytes/100 WBC (Bld) 6.7 % [facility] MCH (RBC) [Entitic mass] 31.6 pg 27 - 34 pg [facility] MCHC (RBC) [Mass/Vol] 35.1 g/dL 32 - 3 6 g/dL [facility] MCV (RBC) [Entitic vol] 90 fL 80 - 100 fL [facility] Monocytes (Bld) [#/Vol] 0.6 10*3/uL [facility] Monocytes/100 WBC (Bld) 7.5 % [facility] Neutrophils (Bld) [#/Vol] 6.3 10*3/uL [facility] Neutrophils/100 WBC (Bld) 80.4 % [facility] Platelet mean volume (Bld) [Entitic vol] 6.7 fL Low 7 - 12 fL [facility] Platelets (Bld) [#/Vol] 279 10*3/uL [facility] RBC (Bld) [#/Vol] 2.89 10*6/uL Low [facility] WBC corrected for nucl RBC Auto (Bld) [#/Vol] 7.8 [facility] COMPREHENSIVE METABOLIC PANE [place] 12-02-2023 Albumin [Mass/Vol] 3.8 g/dL Normal 3.2-5.3 [facility] Comment on above: Performed By: #### C BCA, 89308-8, CMP, 99138-6 ####[facility] ([id number])[address] [place] [address] ALP [Catalytic activity/Vol] 69 U/L Normal 39-130 [facility] Comment on above: Performed By: #### C BCA, 65901-6, CMP, 96728-2 ####[facility] ([id number])[address] [place] [address] ALT [Catalytic activity/Vol] 12 U/L Normal 0-31 [facility] Comment on above: Performed By: #### C BCA, 51230-5, CMP, 68300-5 ####[facility] ([id number])[address] [place] [address] Anion gap [Moles/Vol] 9 mmol/L Normal 5-15 [facility] Comment on above: Performed By: #### C BCA, 02737-4, CMP, 58229-3 ####[facility] ([id number])[address] [place] [address] AST [Catalytic activity/Vol] 24 U/L Normal 0-41 [facility] Comment on above: Performed By: #### C BCA, 63724-6, CMP, 74532-7 ####[facility] ([id number])[address] [place] [address] Bilirubin [Mass/Vol] 0.6 mg/dL Normal 0.3-1.2 [facility] Comment on above: Performed By: #### C BCA, 01213-1, CMP, 62590-6 ####[facility] ([id number])[address] [facility] [place] [address] Calcium [Mass/Vol] 9.8 mg/dL Normal 8.5-10.5 [facility] Comment on above: Performed By: #### C BCA, 87551-6, CMP, 85442-0 ####[facility] ([id number])[address] [facility] [place] [address] Chloride [Moles/Vol] 99 mmol/L Normal 98-109 [facility] Comment on above: Performed By: #### C BCA, 79011-6, CMP, 37808-9 ####[facility] ([id number])[address] [facility] [place] [address] CO2 [Moles/Vol] 25 mmol/L Normal 22-32 [facility] Comment on above: Performed By: #### C BCA, 14466-2, CMP, 91147-6 ####[facility] ([id number])[address] [facility] [place] [address] Creatinine [Mass/Vol] 2.52 mg/dL High 0.40-1.00 [facility] Comment on above: Result Comment: METH OD TRACEABLE TO IDMS STANDARD Performed By: #### C BCA, 54955-5, CMP, 53148-0 ####[facility] ([id number])[address] [facility] [place] [address] GFR/1.73 sq M.predicted among non-blacks MDRD (S/P/Bld) [Vol rate/Area] 22 mL/min/{1.73_m2} Low >59 [facility] Comment on above: Result Comment: Reported eGFR is based on the CKD-EPI 2020 equation that does not use a race coefficient. Performed By: #### C BCA, 26707-0, CMP, 95592-3 ####[facility] ([id number])[address] [place] [address] Glucose [Mass/Vol] 106 mg/dL High 65-99 [facility] Comment on above: Performed By: #### C BCA, 67838-7, CMP, 92118-9 ####[facility] ([id number])[address] [place] [place] [address] Potassium [Moles/Vol] 3.2 mmol/L Low 3.5-5.0 [facility] Comment on above: Performed By: #### C BCA, 29216-3, CMP, 52418-9 ####[facility] ([id number])[address] [place] [address] Protein [Mass/Vol] 6.4 g/dL Normal 6.0-8.0 [facility] Comment on above: Performed By: #### C BCA, 28599-3, CMP, 06911-8 ####[facility] ([id number])[address] [place] [address] Sodium [Moles/Vol] 133 mmol/L Low 134-146 [facility] Comment on above: Performed By: #### C BCA, 82587-3, CMP, 65741-6 ####[facility] ([id number])[address] [facility] [place] [address] Urea nitrogen [Mass/Vol] 27 mg/dL High 5-23 [facility] Comment on above: Performed By: #### C BCA, 01135-7, CMP, 79584-7 ####[facility] ([id number])[address] [place] [address] Comprehensive metabolic pane rome 12-02-2023 Albumin [Mass/Vol] 3.8 g/dL 3.2 - 5.3 g/dL [facility] ALP [Catalytic activity/Vol] 69 U/L 39 - 130 U/L [facility] ALT No additional P-5'-P [Catalytic activity/Vol] 12 U/L 0 - 31 U/L [facility] Anion gap [Moles/Vol] 9 mmol/L 5 - 15 mmol/L [facility] AST [Catalytic activity/Vol] 24 U/L 0 - 41 U/L [facility] Bilirubin [Mass/Vol] 0.6 mg/dL 0.3 - 1 .2 mg/dL [facility] Calcium [Mass/Vol] 9.8 mg/dL 8.5 - 10. 5 mg/dL [facility] Chloride [Moles/Vol] 99 mmol/L 98 - 10 9 mmol/L [facility] CO2 [Moles/Vol] 25 mmol/L 22 - 32 mmol/L [facility] Creatinine [Mass/Vol] 2.52 mg/dL High 0.40 - 1.00 mg/dL [facility] Comment on above: METHOD TRACEABLE TO [facility] STANDARD eGFR (CKD-EPI)non-race dependent 22 Low - PINF [facility] Comment on above: Reported eGFR is based on the CKD-EPI 2020 equation that does not use a race coefficient. Glucose [Mass/Vol] 106 mg/dL High 65 - 99 mg/dL [facility] Interpretation and review of laboratory results Abnormal [facility] Potassium [Moles/Vol] 3.2 mmol/L Low 3.5 - 5.0 mmol/L [facility] Protein [Mass/Vol] 6.4 g/dL 6.0 - 8.0 g/dL [facility] Sodium [Moles/Vol] 133 mmol/L Low 134 - 146 mmol/L [facility] Urea nitrogen [Mass/Vol] 27 mg/dL High 5 - 23 mg/dL [facility] Creatinine (U) [Mass/Vol]on 12-02-2023 URINE CREATININE,RDM 56.74 mg/dL Normal [facility] Comment on above: Performed By: #### Karolyn Eason, 2161-8, 2955-3 ####[facility] ([id number])[address] [place] [address] Lactate (P tayla) [Moles/Vol]o n 12-02-2023 [facility] LACTATE W/REFLEX 0.7 mmol/L Normal 0.4-2.0 [facility] Comment on above: Result Comment: Result did not trigger repeat Lactate, re-order if needed. Performed By: #### C BCA, 33563-8, CMP, 43382-1 ####[facility] ([id number])5200 [facility] [place] [address] Lactate w/ Reflexon 12-02-19 24 Lactate (P tayla) [Moles/Vol] 0.7 mmol/L 0.4 - 2.0 mmol/L [facility] Comment on above: Result did not trigger repeat Lactate, re-order if needed. URINALYSISon 12-02-2023 Bilirubin Ql (U) Negative Normal NEG [facility] Comment on above: Performed By: #### Karolyn Eason, 2160-09, 2954-3 ####[facility] ([id number])5200 [facility] [place] [address] BLOOD/HGB Negative Normal NEG [facility] Comment on above: Performed By: #### Karolyn Eason, 2160-09, 3 ####[facility] ([id number])5200 [facility] [place] [place] [address] Color (U) YELLOW Normal YELLOW [facility] Comment on above: Performed By: #### U Yumi, 2160-09, 2954-3 ####[facility] ([id number])5200 [facility] [place] [place] [address] Glucose Ql (U) Negative Normal NEG [facility] Comment on above: Performed By: #### U A, 2160-09, 2954-3 ####[facility] ([id number])5200 [facility] [place] [place] [address] Ketones Ql (U) Negative Normal NEG [facility] Comment on above: Performed By: #### U A, 2160-09, 2954-3 ####[facility] ([id number])5200 [place] [address] Leukocyte esterase Test strip Ql (U) SMALL Abnormal NEG [facility] Comment on above: Performed By: #### U Yumi, 2160-09, 3 ####[facility] ([id number])5200 [place] [address] Nitrite Ql (U) Negative Normal NEG [facility] Comment on above: Performed By: #### U Yumi, 2160-09, 3 ####[facility] ([id number])5200 [place] [address] pH (U) 6.0 [pH] Normal 5.0-8.5 [facility] Comment on above: Performed By: #### Karolyn Eason, 2160-09, 2954-04 ####[facility] ([id number])5200 [place] [address] Protein Ql (U) Negative Normal NEG [facility] Comment on above: Performed By: #### Karolyn Eason, 2160-09, 3 ####[facility] ([id number])5200 [place] [address] R.B.CELLS 0 /hpf Normal 0-5 [facility] Comment on above: Performed By: #### U Yumi, 2160-09, 3 ####[facility] ([id number])5200 [place] [address] Specific gravity (U) [Rel density] 1.010 Normal 1.003-1.03 5 [facility] Comment on above: Performed By: #### U Yumi, 2160-09, 3 ####[facility] ([id number])5200 [facility] [place] [place] [address] SQUAMOUS EPITHELIUM 4 /hpf Normal 0-5 [facility] Comment on above: Performed By: #### U A, 2160-09, 2954-3 ####[facility] ([id number])5200 [place] [address] TURBIDITY CLEAR Normal CLEAR [facility] Comment on above: Performed By: #### U A, 2160-09, 2954-3 ####[facility] ([id number])5200 [place] [address] Urobilinogen Qn (U) 0.2 {Ansley'U}/dL Normal <1.1 [facility] Comment on above: Performed By: #### U Yumi, 2160-09, 2954-3 ####[facility] ([id number])5200 [place] [address] W.B.CELLS 7 /hpf High 0-5 [facility] Comment on above: Performed By: #### U Yumi, 2160-09, 3 ####[facility] ([id number])5200 [place] [address] URINE CULTUREon 12-02-2023 Bacteria identified Cx Nom (U) CULTURE RESULTS NO GROWTH AT <1000 CFU/mL Normal [facility] Comment on above: Performed By: #### 6 30-4 ####[facility] ([id number])[address] [place] [address], [address] [place] [address] URINE SODIUM,RANDOMon 2023 Sodium (U) [Moles/Vol] 53 mmol/L Normal Pr [facility] Comment on above: Performed By: #### U A, 2160-09, 2954-3 ####[facility] ([id number])5200 [place] [address] aPTT Coag (PPP) [Time]on aPTT Coag (Bld) [Time] 35 s Normal 26-37 Pr [facility] Comment on above: Performed By: #### C BCA, 41656-0, CMP, 77638-5 ####[facility] ([id number])5200 [place] [address] BASIC METABOLIC PANLon 11-29 Anion gap [Moles/Vol] 8 mmol/L Normal 5-15 [facility] Comment on above: Performed By: #### C BCA, BMP ####[facility] ([id number])5200 [facility] [place] [address] Calcium [Mass/Vol] 9.6 mg/dL Normal 8.5-10.5 [facility] Comment on above: Performed By: #### C BCA, BMP ####[facility] ([id number])5200 [facility] [place] [place] [address] Chloride [Moles/Vol] 105 mmol/L Normal 98-109 [facility] Comment on above: Performed By: #### C BCA, BMP ####[facility] ([id number])5200 [facility] [place] [address] CO2 [Moles/Vol] 29 mmol/L Normal 22-32 [facility] Comment on above: Performed By: #### C BCA, BMP ####[facility] ([id number])5200 [facility] [place] [place] [address] Creatinine [Mass/Vol] 0.62 mg/dL Normal 0.40-1.00 [facility] Comment on above: Result Comment: METH OD TRACEABLE TO IDMS STANDARD Performed By: #### C BCA, BMP ####[facility] ([id number])5200 [facility] [place] [address] eGFR (CKD-EPI) NON-RACE DEPENDENT >90 Normal >59 [facility] Comment on above: Result Comment: Reported eGFR is based on the CKD-EPI 1 equation that does not use a race coefficient. Performed By: #### C BCA, BMP ####[facility] ([id number])5200 [facility] [address] Glucose [Mass/Vol] 84 mg/dL Normal 65-99 [facility] Comment on above: Performed By: #### C BCA, BMP ####[facility] ([id number])5200 [facility] [place] [address] Potassium [Moles/Vol] 3.3 mmol/L Low 3.5-5.0 [facility] Comment on above: Performed By: #### C BCA, BMP ####[facility] ([id number])5200 [facility] [place] [address] Sodium [Moles/Vol] 142 mmol/L Normal 134-146 [facility] Comment on above: Performed By: #### C BCA, BMP ####[facility] ([id number])5200 [facility] [place] [place] [address] Urea nitrogen [Mass/Vol] 9 mg/dL Normal 5-23 [facility] Comment on above: Performed By: #### C BCA, BMP ####[facility] ([id number])5200 [facility] [place] [place] [address] CBC AND AUTO DIFFon 11-30-19 24 ABSOLUTE BASOPHIL 0.1 X10E9/L Normal 0.0-0.2 [facility] Comment on above: Performed By: #### C BCA, BMP ####[facility] ([id number])5200 [facility] [place] [place] [address] ABSOLUTE NEUTROPHIL 4.2 X10E9/L Normal 1.5-6.6 [facility] Comment on above: Performed By: #### C BCA, BMP ####[facility] ([id number])5200 [facility] [place] [address] Basophils/100 WBC (Bld) 0.8 % Normal [facility] Comment on above: Performed By: #### C BCA, BMP ####[facility] ([id number])5200 [facility] [place] [address] Eosinophils (Bld) [#/Vol] 0.4 10*3/uL Normal 0.0-0.4 [facility] Comment on above: Performed By: #### C BCA, BMP ####[facility] ([id number])5200 [facility] [place] [address] Eosinophils/100 WBC (Bld) 6.4 % Normal [facility] Comment on above: Performed By: #### C BCA, BMP ####[facility] ([id number])5200 [facility] [place] [address] Erythrocyte distribution width (RBC) [Ratio] 13.9 % Normal 11.5-15.0 [facility] Comment on above: Performed By: #### C BCA, BMP ####[facility] ([id number])5200 [facility] [place] [address] Hematocrit (Bld) [Volume fraction] 25.2 % Low 35-47 [facility] Comment on above: Performed By: #### C BCA, BMP ####[facility] ([id number])5200 [facility] [place] [address] Hemoglobin (Bld) [Mass/Vol] 8.8 g/dL Low 11.7-15.5 [facility] Comment on above: Performed By: #### C BCA, BMP ####[facility] ([id number])5200 [facility] [place] [place] [address] Lymphocytes (Bld) [#/Vol] 1.2 10*3/uL Normal 1.0-3.5 [facility] Comment on above: Performed By: #### C BCA, BMP ####[facility] ([id number])5200 [facility] [place] [address] Lymphocytes/100 WBC (Bld) 19.2 % Normal [facility] Comment on above: Performed By: #### C BCA, BMP ####[facility] ([id number])5200 [facility] [place] [address] MCH (RBC) [Entitic mass] 31.6 pg Normal 27-34 [facility] Comment on above: Performed By: #### C BCA, BMP ####[facility] ([id number])5200 [facility] [place] [address] MCHC (RBC) [Mass/Vol] 35.0 g/dL Normal 32-36 [facility] Comment on above: Performed By: #### C BCA, BMP ####[facility] ([id number])5200 [facility] [place] [address] MCV (RBC) [Entitic vol] 90 fL Normal 80-100 [facility] Comment on above: Performed By: #### C BCA, BMP ####[facility] ([id number])5200 [place] [address] Monocytes (Bld) [#/Vol] 0.5 10*3/uL Normal 0-0.9 [facility] Comment on above: Performed By: #### C LUCIA, BMP ####[facility] ([id number])5200 [facility] [place] [address] Monocytes/100 WBC (Bld) 8.4 % Normal [facility] Comment on above: Performed By: #### C LUCIA, BMP ####[facility] ([id number])5200 [facility] [place] [address] Neutrophils/100 WBC (Bld) 65.2 % Normal [facility] Comment on above: Performed By: #### C LUCIA, BMP ####[facility] ([id number])5200 [facility] [place] [address] Platelet mean volume (Bld) [Entitic vol] 6.8 fL Low 7-12 [facility] Comment on above: Performed By: #### C LUCIA, BMP ####[facility] ([id number])5200 [facility] [place] [address] Platelets (Bld) [#/Vol] 294 10*3/uL Normal 150-450 [facility] Comment on above: Performed By: #### C BCA, BMP ####[facility] ([id number])5200 [facility] [place] [address] RBC COUNT 2.80 X10E12/L Low 3.80-5.20 [facility] Comment on above: Performed By: #### C BCA, BMP ####[facility] ([id number])5200 [place] [address] WBC (Bld) [#/Vol] 6.5 10*3/uL Normal 4.0-11.0 [facility] Comment on above: Performed By: #### C BCA, BMP ####[facility] ([id number])5200 [place] [address] CK [Catalytic activity/Vol]o n 11-28-2023 CPK 45 U/L Normal 24-170 [facility] Comment on above: Performed By: #### 2 157-6 ####[facility] ([id number])5200 [place] [address] AFB CULTURE(CONCENTRATED)on 11-27-2023 Mycobacterium sp identified Org specific cx Nom (Unsp spec) SPECIMEN NOTES SPECIMEN A AFB SMEAR NO ACID FAST BACILLI (CONCENTRATED SMEAR) 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 Normal [facility] Comment on above: Performed By: #### 5 43-9 ####[facility] ([id number])2130 [facility] [address] [place] [address] ANAEROBE CULTUREon 4 Bacteria identified Anaer cx Nom (Unsp spec) SPECIMEN NOTES SPECIMEN A CULTURE RESULTS NO GROWTH 5 DAYS Normal [facility] Comment on above: Performed By: #### 6 35-3 ####[facility] ([id number])2130 [facility], [address] [place] [address] ASPIRATE CULTUREon 4 Bacteria identified Aer cx Nom (Asp) SPECIMEN NOTES SPECIMEN A GRAM STAIN >25 WHITE BLOOD CELLS/LPF 0 SQUAMOUS EPITHELIAL CELLS/LPF NO ORGANISMS SEEN CULTURE 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 Normal [facility] Comment on above: Performed By: #### 5 97-5 ####[facility] ([id number])[address] [address] BASIC METABOLIC PANLon 11-26 Anion gap [Moles/Vol] 5 mmol/L Normal 5-15 [facility] Comment on above: Performed By: #### C BC, DIFFA, BMP ####[facility] ([id number])5200 [facility] [place] [address] Calcium [Mass/Vol] 9.5 mg/dL Normal 8.5-10.5 [facility] Comment on above: Performed By: #### C SHAY BROWN, BMP ####[facility] ([id number])5200 [facility] [place] [address] Chloride [Moles/Vol] 105 mmol/L Normal 98-109 [facility] Comment on above: Performed By: #### C SHAY BROWN, BMP ####[facility] ([id number])5200 [facility] [place] [place] [address] CO2 [Moles/Vol] 30 mmol/L Normal 22-32 [facility] Comment on above: Performed By: #### C SHAY BROWN, BMP ####[facility] ([id number])5200 [facility] [place] [place] [address] Creatinine [Mass/Vol] 0.71 mg/dL Normal 0.40-1.00 [facility] Comment on above: Result Comment: METH OD TRACEABLE TO IDMS STANDARD Performed By: #### C SHAY BROWN BMP ####[facility] ([id number])5200 [facility] [place] [address] eGFR (CKD-EPI) NON-RACE DEPENDENT >90 Normal >59 [facility] Comment on above: Result Comment: Reported eGFR is based on the CKD-EPI 2020 equation that does not use a race coefficient. Performed By: #### C SHAY BROWN, BMP ####[facility] ([id number])5200 [facility] [place] [address] Glucose [Mass/Vol] 101 mg/dL High 65-99 [facility] Comment on above: Performed By: #### C SHAY BROWN, BMP ####[facility] ([id number])5200 [facility] [place] [address] Potassium [Moles/Vol] 3.8 mmol/L Normal 3.5-5.0 [facility] Comment on above: Performed By: #### C SHAY BROWN, BMP ####[facility] ([id number])5200 [facility] [place] [place] [address] Sodium [Moles/Vol] 140 mmol/L Normal 134-146 [facility] Comment on above: Performed By: #### C BC, DIFFA, BMP ####[facility] ([id number])5200 [facility] [place] [place] [address] Urea nitrogen [Mass/Vol] 16 mg/dL Normal 5-23 [facility] Comment on above: Performed By: #### C BC, DIFFA, BMP ####[facility] ([id number])5200 [facility] [place] [place] [address] COMPLETE BLOOD COUNTon 11-26 Erythrocyte distribution width (RBC) [Ratio] 13.6 % Normal 11.5-15.0 [facility] Comment on above: Performed By: #### C BC, DIFFA, BMP ####[facility] ([id number])5200 [facility] [place] [place] [address] Hematocrit (Bld) [Volume fraction] 24.9 % Low 35-47 [facility] Comment on above: Performed By: #### C BC, DIFFA, BMP ####[facility] ([id number])5200 [facility] [place] [address] Hemoglobin (Bld) [Mass/Vol] 8.7 g/dL Low 11.7-15.5 [facility] Comment on above: Performed By: #### C BC, DIFFA, BMP ####[facility] ([id number])5200 [facility] [place] [address] MCH (RBC) [Entitic mass] 31.5 pg Normal 27-34 [facility] Comment on above: Performed By: #### C BC, DIFFA, BMP ####[facility] ([id number])5200 [facility] [place] [address] MCHC (RBC) [Mass/Vol] 34.7 g/dL Normal 32-36 [facility] Comment on above: Performed By: #### C BC, DIFFA, BMP ####[facility] ([id number])5200 [facility] [place] [address] MCV (RBC) [Entitic vol] 91 fL Normal 80-100 [facility] Comment on above: Performed By: #### C BC, DIFFA, BMP ####[facility] ([id number])5200 [facility] [place] [address] Platelet mean volume (Bld) [Entitic vol] 6.6 fL Low 7-12 [facility] Comment on above: Performed By: #### C BC, DIFFA, BMP ####[facility] ([id number])5200 [facility] [place] [place] [address] Platelets (Bld) [#/Vol] 267 10*3/uL Normal 150-450 [facility] Comment on above: Performed By: #### C BC, DIFFA, BMP ####[facility] ([id number])5200 [facility] [place] [place] [address] RBC COUNT 2.75 X10E12/L Low 3.80-5.20 [facility] Comment on above: Performed By: #### C BC, DIFFA, BMP ####[facility] ([id number])5200 [facility] [place] [address] WBC (Bld) [#/Vol] 6.2 10*3/uL Normal 4.0-11.0 [facility] Comment on above: Performed By: #### C BC, DIFFA, BMP ####[facility] ([id number])5200 [facility] [place] [address] DIFFERENTIALon 11-27-2023 ABSOLUTE BASOPHIL 0.0 X10E9/L Normal 0.0-0.2 [facility] Comment on above: Performed By: #### C BC, DIFFA, BMP ####[facility] ([id number])5200 [facility] [place] [address] ABSOLUTE NEUTROPHIL 3.9 X10E9/L Normal 1.5-6.6 [facility] Comment on above: Performed By: #### C BC, DIFFA, BMP ####[facility] ([id number])5200 [facility] [address] Basophils/100 WBC (Bld) 0.5 % Normal [facility] Comment on above: Performed By: #### C BC, DIFFA, BMP ####[facility] ([id number])5200 [place] [address] Eosinophils (Bld) [#/Vol] 0.6 10*3/uL High 0.0-0.4 [facility] Comment on above: Performed By: #### C BC, DIFFA, BMP ####[facility] ([id number])5200 [place] [address] Eosinophils/100 WBC (Bld) 9.2 % Normal [facility] Comment on above: Performed By: #### C BC, DIFFA, BMP ####[facility] ([id number])5200 [facility] [place] [address] Lymphocytes (Bld) [#/Vol] 1.1 10*3/uL Normal 1.0-3.5 [facility] Comment on above: Performed By: #### C BC, DIFFA, BMP ####[facility] ([id number])5200 [facility] [place] [address] Lymphocytes/100 WBC (Bld) 17.3 % Normal [facility] Comment on above: Performed By: #### C BC, DIFFA, BMP ####[facility] ([id number])5200 [place] [address] Monocytes (Bld) [#/Vol] 0.6 10*3/uL Normal 0-0.9 [facility] Comment on above: Performed By: #### C BC, DIFFA, BMP ####[facility] ([id number])5200 [place] [address] Monocytes/100 WBC (Bld) 9.7 % Normal [facility] Comment on above: Performed By: #### C BC, DIFFA, BMP ####[facility] ([id number])5200 [place] [address] Neutrophils/100 WBC (Bld) 63.3 % Normal [facility] Comment on above: Performed By: #### C BC, DIFFA, BMP ####[facility] ([id number])5200 [place] [address] FUNGAL CULTUREon 11-27-2023 Fungus identified Cx Nom (Unsp spec) SPECIMEN NOTES SPECIMEN A FUNGAL SMEAR NO FUNGAL ELEMENTS SEEN ON DIRECT SMEAR CULTURE RESULTS NO FUNGUS ISOLATED AFTER 4 WEEKS Normal [facility] Comment on above: Performed By: #### 5 80-1 ####[facility] ([id number])2130 [facility] [address], [place] [address] MRSA PCR NASALon 11-27-2023 MRSA DNA KYLE+probe Ql (Unsp spec) Negative Normal NEG [facility] Comment on above: Performed By: #### 3 5492-8 ####[facility] ([id number])[address], [place] [address] SEND OUT TESTon 11-27-2023 SENT TO [facility] Comment on above: Result Comment: [id number] SPECIMEN LJ SLANT FROM LEFT BREAST ASPIRATE SPECIMEN A Normal [facility] TEST NAME: [facility] APPR O SUSCEPTIBILITY Normal [facility] TEST RESULT See separate report. View in OnBase or in EPIC. Normal [facility] BASIC METABOLIC PANLon 11-25 Anion gap [Moles/Vol] 8 mmol/L Normal 5-15 [facility] Comment on above: Performed By: #### 3 2133-1, 1987-, 49462-7, BMP ####[facility] ([id number])5200 [place] [address]#### 92602-2 ####[facility] ([id number])2130 [facility], [address], [place] [address] Calcium [Mass/Vol] 9.5 mg/dL Normal 8.5-10.5 [facility] Comment on above: Performed By: #### 3 2132-03, 1987-07, 32172-4, BMP ####[facility] ([id number])5200 [place] [address]#### 86510-5 ####[facility] ([id number])2129 [facility], [address] [place] [address] Chloride [Moles/Vol] 102 mmol/L Normal 98-109 [facility] Comment on above: Performed By: #### 3 2132-03, 1987-07, 89564-5, BMP ####[facility] ([id number])520 [place] [address]#### 01980-9 ####[facility] ([id number])2129 [facility] [address] [place] [address] CO2 [Moles/Vol] 29 mmol/L Normal 22-32 [facility] Comment on above: Performed By: #### 3 2132-03, 1987-07, 86342-4, BMP ####[facility] ([id number])5200 [place] [address]#### 99236-7 ####[facility] ([id number])2129 [facility] [address] [address] Creatinine [Mass/Vol] 0.81 mg/dL Normal 0.40-1.00 [facility] Comment on above: Result Comment: METH OD TRACEABLE TO IDMS STANDARD Performed By: #### 3 2132-03, 1987-07, 10905-5, BMP ####[facility] ([id number])5[address] [place] [address]#### [id number] ####[facility] ([id number])[address] [address] GFR/1.73 sq M.predicted among non-blacks MDRD (S/P/Bld) [Vol rate/Area] 87 mL/min/{1.73_m2} Normal >59 [facility] Comment on above: Result Comment: Reported eGFR is based on the CKD-EPI 2020 equation that does not use a race coefficient. Performed By: #### 3 2132-03, 1987-07, 04655-6, BMP ####[facility] ([id number])520 [place] [address]#### [id number] ####[facility] ([id number])[address] [address] Glucose [Mass/Vol] 97 mg/dL Normal 65-99 [facility] Comment on above: Performed By: #### 3 2132-03, 1987-07, 76215-3, BMP ####[facility] ([id number])5199 [place] [address]#### [id number] ####[facility] ([id number])[address] [address] Potassium [Moles/Vol] 3.0 mmol/L Low 3.5-5.0 [facility] Comment on above: Performed By: #### 3 2132-03, 1987-07, 94014-2, BMP ####[facility] ([id number])5199 [place] [address]#### 94253-4 ####[facility] ([id number])[address] [address] Sodium [Moles/Vol] 139 mmol/L Normal 134-146 [facility] Comment on above: Performed By: #### 3 2132-03, 1987-07, 54314-0, BMP ####[facility] ([id number])5[address] [place] [address]#### [id number] ####[facility] ([id number])2130 [facility] [address] [place] [address] Urea nitrogen [Mass/Vol] 19 mg/dL Normal 5-23 [facility] Comment on above: Performed By: #### 3 2132-03, 1987-07, 51359-9, BMP ####[facility] ([id number])5200 [place] [address]#### 86554-0 ####[facility] ([id number])[address] [address] BLOOD CULTUREon 11-26-2023 Bacteria identified Aer cx Nom (Bld) CULTURE RESULTS NO GROWTH 5 DAYS Normal [facility] CRP [Mass/Vol]on 11-26-2023 C REACTIVE PROTEIN 2.6 mg/dL High 0.000-0.7 4 4 [facility] Comment on above: Performed By: #### 3 2132-03, 1987-07, 20978-5, BMP ####[facility] ([id number])[facility] [place] [address]#### 02229-6 ####[facility] ([id number])[address] [facility] [address] [place] [address] ESR Photometric method (Bld) [Velocity]on 11-26-2023 ESR, ERYTHROCYTE SEDIMENTATION RATE 30 mm/h Normal 0-30 [facility] Comment on above: Performed By: #### 3 2132-03, 1987-07, 43995-1, BMP ####[facility] ([id number])5200 [place] [address]#### 96799-9 ####[facility] ([id number])[address], [address] [place] [address] Lactate (P tayla) [Moles/Vol]o n 11-26-2023 LACTATE W/REFLEX 0.7 mmol/L Normal 0.4-2.0 [facility] Comment on above: Result Comment: Result did not trigger repeat Lactate, re-order if needed. Performed By: #### 3 2132-03, 1987-07, 48553-0, BMP ####[facility] ([id number])5200 [place] [address]#### 36847-3 ####[facility] ([id number])[address], [address] [place] [address] Procalcitonin IA [Mass/Vol]o n 11-26-2023 PROCALCITONIN <0.05 Normal <0.05 [facility] Comment on above: Result Comment: NOTE <0.50 ng/mL - Low risk of severe sepsis and/or septic shock. <2.00 ng/mL - Recommend retesting within 6-24 hours. >2.00 ng/mL - High risk of sepsis and/or septic shock. Performed By: #### 3 2132-03, 1987-07, 50124-5, BMP ####[facility] ([id number])5200 [place] [address]#### 12942-5 ####[facility] ([id number])[address], [address] [address] ASPIRATE CULTUREon 4 Bacteria identified Aer cx Nom (Asp) GRAM STAIN >25 WHITE BLOOD CELLS/LPF 0 SQUAMOUS EPITHELIAL CELLS/LPF NO ORGANISMS SEEN CULTURE RESULTS FEW Mycobacterium Abscessus REPORT UPDATED GROWTH OBSERVED AT 3RD DAY FOR SUSCEPTIBILITY, SEE PREVIOUS REPORT. Normal [facility] Comment on above: Performed By: #### 5 97-5 ####[facility] ([id number])[address], [address] [place] [address] BASIC METABOLIC PANLon 10-28 Anion gap [Moles/Vol] 8 mmol/L Normal 5-15 [facility] Comment on above: Performed By: #### B MP, CBC #### [facility] ([id number]) [address] [place] [address] #### 6793-4 #### [facility] ([id number]) [address], [address] [place] [address] Calcium [Mass/Vol] 8.5 mg/dL Normal 8.5-10.5 [facility] Comment on above: Performed By: #### B MP, CBC #### [facility] ([id number]) [address] [place] [address] #### 6793-4 #### [facility] ([id number]) [address], [address] [place] [address] Chloride [Moles/Vol] 105 mmol/L Normal 98-109 [facility] Comment on above: Performed By: #### B ADARSH, CBC #### [facility] ([id number]) [address] [place] [address] #### 6793-4 #### [facility] ([id number]) [address], [address] [place] [address] CO2 [Moles/Vol] 27 mmol/L Normal 22-32 [facility] Comment on above: Performed By: #### Willis MP, CBC #### [facility] ([id number]) [address] [place] [address] #### 6793-4 #### [facility] ([id number]) [address], [address] [place] [address] Creatinine [Mass/Vol] 0.91 mg/dL Normal 0.40-1.00 [facility] Comment on above: Result Comment: METH OD TRACEABLE TO IDMS STANDARD Performed By: #### B MP, CBC #### [facility] ([id number]) [address] [place] [address] #### 6793-4 #### [facility] ([id number]) [address] [address] [place] [address] GFR/1.73 sq M.predicted among non-blacks MDRD (S/P/Bld) [Vol rate/Area] 75 mL/min/{1.73_m2} Normal >59 [facility] Comment on above: Result Comment: Reported eGFR is based on the CKD-EPI 2020 equation that does not use a race coefficient. Performed By: #### B ADARSH, CBC #### [facility] ([id number]) [address] [place] [address] #### 6793-4 #### [facility] ([id number]) [address] [address] Glucose [Mass/Vol] 128 mg/dL High 65-99 [facility] Comment on above: Performed By: #### Willis ALTAMIRANO, CBC #### [facility] ([id number]) [address] [place] [address] #### 6793-4 #### [facility] ([id number]) [address] [address] [place] [address] Potassium [Moles/Vol] 3.2 mmol/L Low 3.5-5.0 [facility] Comment on above: Performed By: #### Willis ALTAMIRANO, CBC #### [facility] ([id number]) [address] [place] [address] #### 6793-4 #### [facility] ([id number]) [address] [address] Sodium [Moles/Vol] 140 mmol/L Normal 134-146 [facility] Comment on above: Performed By: #### Willis ALTAMIRANO, CBC #### [facility] ([id number]) [address] [place] [address] #### 6793-4 #### [facility] ([id number]) [address] [address] [place] [address] Urea nitrogen [Mass/Vol] 22 mg/dL Normal 5-23 [facility] Comment on above: Performed By: #### B MP, CBC #### [facility] ([id number]) [address] [place] [address] #### 6793-4 #### [facility] ([id number]) [address], [address] [place] [address] COMPLETE BLOOD COUNTon 10-28 Erythrocyte distribution width (RBC) [Ratio] 15.0 % Normal 11.5-15.0 [facility] Comment on above: Performed By: #### B MP, CBC #### [facility] ([id number]) [address] [place] [address] #### 6793-4 #### [facility] ([id number]) [address], [address] [place] [address] Hematocrit (Bld) [Volume fraction] 21.9 % Low 35-47 [facility] Comment on above: Performed By: #### B MP, CBC #### [facility] ([id number]) [address] [place] [address] #### 6793-4 #### [facility] ([id number]) [address], [address] [place] [address] Hemoglobin (Bld) [Mass/Vol] 7.7 g/dL Low 11.7-15.5 [facility] Comment on above: Performed By: #### B MP, CBC #### [facility] ([id number]) [address] [place] [address] #### 6793-4 #### [facility] ([id number]) [address], [address] [place] [address] MCH (RBC) [Entitic mass] 34.2 pg High 27-34 [facility] Comment on above: Performed By: #### B MP, CBC #### [facility] ([id number]) [address] [place] [address] #### 6793-4 #### [facility] ([id number]) [address], [address] [place] [address] MCHC (RBC) [Mass/Vol] 35.0 g/dL Normal 32-36 [facility] Comment on above: Performed By: #### Willis MP, CBC #### [facility] ([id number]) [address] [place] [address] #### 6793-4 #### [facility] ([id number]) [address], [address] [place] [address] MCV (RBC) [Entitic vol] 98 fL Normal 80-[address] [facility] Comment on above: Performed By: #### Willis MP, CBC #### [facility] ([id number]) [address] [place] [address] #### 6793-4 #### [facility] ([id number]) [address], [address] [place] [address] Platelet mean volume (Bld) [Entitic vol] 7.5 fL Normal 7-12 [facility] Comment on above: Performed By: #### B MP, CBC #### [facility] ([id number]) [address] [place] [address] #### 6793-4 #### [facility] ([id number]) [address], [address] [place] [address] Platelets (Bld) [#/Vol] 220 10*3/uL Normal 150-450 [facility] Comment on above: Performed By: #### B MP, CBC #### [facility] ([id number]) [address] [place] [address] #### 6793-4 #### [facility] ([id number]) [address], [address] [place] [address] RBC COUNT 2.24 X10E12/L Low 3.80-5.20 [facility] Comment on above: Performed By: #### B MP, CBC #### [facility] ([id number]) [address] [place] [address] #### 6793-4 #### [facility] ([id number]) [address], [address] [place] [address] WBC (Bld) [#/Vol] 9.0 10*3/uL Normal 4.0-11.0 [facility] Comment on above: Performed By: #### B MP, CBC #### [facility] ([id number]) [address] [place] [address] #### 6793-4 #### [facility] ([id number]) [address], [address] [place] [address] Prealbumin IA [Mass/Vol]on 0 10-29-2023 Prealbumin [Mass/Vol] 19 mg/dL Normal 18-45 [facility] Comment on above: Performed By: #### B MP, CBC #### [facility] ([id number]) [address] [place] [address] #### 6793-4 #### [facility] ([id number]) [address], [address] [place] [address] MAMM SPECIMEN FILMS RTon MAMM SPECIMEN FILMS RT MAMM SPECIMEN MISSAEL MS RT IKE JONES 1970 [id number] MAMM SPECIMEN FILMS RT, 10/28/2023 7:53 AM CLINICAL INDICATIONS: Faxitron, intraoperative specimen radiograph COMPARISON: 09/04/2023 FINDINGS: Digital radiograph of the specimen submitted and interpreted on a dedicated mammography workstation. IMPRESSION: Submitted radiograph demonstrates the Hydromark T5 clip and Magseed within the excised tissue. Finalized by Rosemary Gasca MD on 10/28/2023 1:58 PM Normal [facility] POTASSIUMon 10-28-2023 Potassium [Moles/Vol] 4.0 mmol/L Normal 3.5-5.0 [facility] Comment on above: Result Comment: SPEC IMEN HEMOLYZED, RESULTS INCREASED MARKEDLY HEMOLYZED Performed By: #### 2 823-3 #### [facility] ([id number]) [address] [place] [address] Surgical Pathologyon 024 Surgical Pathology Normal [facility] Comment on above: Result Comment: [facility] [address] [place] [address] Surgical Pathology Consultation Patient Name:IKE JONES:1970 (Age: 53)Gender:FTaken:4Reported:4Physician(s):Roxann He MD ([phone])Copy To:Jhon Rosado, [facility]:[id number]. Rec. #:[id number]: #[id number] Final Pathologic Diagnosis 1. Left breast, mastectomy: Breast with diffuse fibrocytic changes and minute focus of atypical ductal hyperplasia (ADH) Neoplasm is not identified Comment: Atypical ductal hyperplasia (ADH) is far from surgical margins 2. Right breast mastectomy: INVASIVE DUCTAL CARCINOMA, Grade 2 (1.8 x 1.2 cm)(ypT1c(m)) Multiple foci of invasive neoplasm (ranging from 3mm- 5mm) Extensive ductal carcinoma in situ (DCIS), high grade All margins are negative (>2 cm away) Lymphovascular invasion is present Additional incidental fibroadenomas and areas of fibroadenomatous hyperplasia Comment: The tumor is microscopically measured due to therapeutic response. The gross measurement includes surrounding areas of dense fibrosis, likely tumor that had complete response. Repeat biomarker testing is performed and reported below. 3. Right breast, mastectomy additional margin 11:00, excision: Negative for neoplasm (6 mm thickness) 4. Right breast, mastectomy additional margin 12:00, excision: Negative for neoplasm (6 mm thickness) 5. Right breast, mastectomy additional margin 1:00, excision: Negative for neoplasm (8 mm thickness) 6. Right axillary contents, excision: Six of twelve lymph nodes with macrometastatic malignancy (15mm) (6/12)(pN2a) Extracapsular extension is present One lymph node with individual tumor cells Comment: Immunostains were performed with adequate controls. Results show the following:CAM 5.2 highlights the metastatic malignancy. CANCER CASE SUMMARY SPECIMEN:Breast Procedure: Mastectomy Specimen laterality: Right TUMOR: Histologic type: Ductal Histologic grade: Glandular (acinar)/tubular differentiation: 3 Nuclear pleomorphism: 3 Mitotic rate: 1 Overall grade: 2 Tumor size: Greatest dimension: 1.8 cm Ductal carcinoma in situ (DCIS): Present, High grade Positive for extensive intraductal component (EIC). Tumor extent: Localized to breast parenchyma Lymphatic and/or vascular invasion: Present Treatment effect in the breast: Present, definite response Treatment effect in the lymph nodes: Present MARGINS: Margins status for invasive carcinoma: Negative, all greater than 1cm Margins status for DCIS: Negative REGIONAL LYMPH NODES: Regional lymph node status: Number of lymph nodes with macrometastases (greater than 2 mm): 6 Number of lymph nodes with micrometastases (greater than 0.2 mm to 2 mm and/or greater than 200 cells): 0 Size of largest bibi metastatic deposit: Exact size 15 mm Extranodal extension: Present Total number of lymph nodes examined: 12 Number of sentinel nodes examined: 0 DISTANT METASTASIS: Unknown pTNM CLASSIFICATION (pTNM, AJCC 8th Edition) Modified classification: y pT category: pT1c T suffix:m pN category: pN2a N suffix: N/A SPECIAL STUDIES: Breast biomarker testing repeated in house, see below BREAST BIOMARKER REPORTING TEMPLATE Estrogen Receptor (ER) Positive (percentage of cells with nuclear positivity: 75%); Average intensity of staining: DIm-Moderate Progesterone Receptor (PgR) Negative Internal control cells present and stain as expected HER2 (by immunohistochemistry) Negative (Score 1+) Cold ischemia and fixation times meet the requirements specified in the latest version of the ASCO/CAP guidelines: Yes All external controls reacted appropriately. Comment Methods - Block: 2A Fixative: Formalin (Formalin-fixed, paraffin embedded tissue) Estrogen Receptor: Food and Drug Administration (FDA) cleared (test/vendor): Confirm/ Mcgrew, Primary Antibody: SP1 Progesterone Receptor: FDA cleared (test/vendor): Confirm/ Mcgrew, Primary Antibody: 1E2 HER2: FDA approved (test/vendor): Pathway/ Mcgrew, Primary Antibody: 4B5 Detection System (ER, PgR and/or HER2): Mcgrew ultraView [place] DAB Detection Kit (indirect biotin-free detection) Scoring [...] (score 2+) - Weak to moderate complete (more content not included)... HPon 10-27-2023 HP History Of Present Illness Tia A Widman is a 53 y.o. female presenting for right heart catheterization. She was recently evaluated in cardiology clinic due to lower extremity edema. She has prior history of hypertension. A follow-up echocardiogram on 09/11/2023 showed significantly elevated right-sided pressures. She has a history of breast cancer and is undergoing chemotherapy. She will be undergoing bilateral mastectomy tomorrow. Past Medical History She has a past medical history of Cancer (CMS/HCC) and Hypertension. Surgical History She has a past surgical history that includes Anterior cruciate ligament repair and Hysterectomy. Social History She reports that she has never smoked. She has never used smokeless tobacco. She reports that she does not currently use alcohol. No history on file for drug use. Allergies Meperidine Medications Medications Prior to Admission Medication Sig Dispense Refill Last Dose chlorthalidone (Hygroton) 25 mg tablet Take 25 mg by mouth in the morning. 10/27/2023 cyclobenzaprine (Flexeril) 10 mg tablet TAKE ONE TABLET BY MOUTH ONCE DAILY IN THE EVENING 10/27/2023 DULoxetine (Cymbalta) [address] capsule Take 30 mg by mouth in the morning. Do not crush or chew. 10/27/2023 furosemide (Lasix) 20 mg tablet Take 20 mg by mouth in the morning. 10/27/2023 lisinopril 20 mg tablet Take 20 mg by mouth in the morning. 10/27/2023 magnesium oxide (Mag-Ox) 400 mg tablet 400 mg in the morning. 10/27/2023 metoprolol succinate XL (Toprol-XL) 100 mg 24 hr tablet Take 100 mg by mouth in the morning. 10/27/2023 potassium chloride CR (Klor-Con) 10 mEq ER tablet Take 20 mEq by mouth in the morning. 10/27/2023 spironolactone (Aldactone) 25 mg tablet Take 25 mg by mouth in the morning. 10/27/2023 traZODone (Desyrel) 50 mg tablet TAKE ONE TABLET BY MOUTH ONCE DAILY AT NIGHT 10/26/2023 aspirin 325 mg tablet Take 325 mg by mouth in the morning. Not Taking gabapentin (Neurontin) 300 mg capsule TAKE ONE CAPSULE BY MOUTH TWICE A DAY FOR HOT FLASHES Not Taking Review of Systems Cardiovascular: Positive for leg swelling. Negative for chest pain, dyspnea on exertion, irregular heartbeat, orthopnea, palpitations and syncope. Respiratory: Negative for cough and shortness of breath. Musculoskeletal: Negative for arthritis, falls and neck pain. Gastrointestinal: Negative for diarrhea and dysphagia. Neurological: Negative for light-headedness and loss of balance. Physical Exam Constitutional: Appearance: She is well-developed. [...] Behavior: Behavior is cooperative. Judgment: Judgment normal. Last Recorded Vitals Blood pressure (!) 113/99, pulse 82, resp. rate 16, SpO2 98 %. Relevant Results Echocardiogram 09/11/2023: CONCLUSION: 1. Mild concentric left ventricular hypertrophy with normal systolic function. LVEF is estimated at 55 to 60%. 2. Normal right ventricular size and systolic function. 3. No significant valvular dysfunction. 4. Moderately elevated right-sided pressures. RVSP is 50 mmHg. 5. No pericardial effusion. Assessment/Plan Principal Problem: Pulmonary hypertension (CMS/HCC) Active Problems: Edema We will proceed with right heart catheterization for assessment of filling and pulmonary pressures given the findings on echocardiography and lower extremity edema. [facility] NURSNOTEon 10-27-2023 NURSNOTE RN educated pt on d/ c instructions. RN encouraged pt to voice any questions or concerns. Pt verbalizes no questions or concerns at this time. Pt walked off of unit with all of belongings. [facility] 36on 10-23-2023 36 Per Raj in the cance r infusion center at [facility], this patient is scheduled for double mastectomy on 10/27. She wants to know if the RHC is that urgent or can it wait until after her surgery? Also, I'm assuming someone may be asking for clearance for this. Are you able to clear her or not until the heart cath? Please advise. [facility] MAMM POST BX DIAG UNI RTon 0 10-16-2023 MAMM POST BX DIAG UNI RT MAMM POST BX DI AG UNI RT IKE JONES 1970 [id number], [id number] EXAM: MAMM POST BX DIAG UNI RT, US LOC BRST US GUID INIT RT, 10/16/2023 2:17 PM CLINICAL INDICATIONS: Right breast malignancy, axillary Magseed placement prior to surgical excision COMPARISON: Right axillary biopsy 05/08/2023 PERFORMING PHYSICIAN: Althea Miller MD PROCEDURE: The risks, benefits, and alternatives of the procedure were explained in detail to the patient and both verbal and written informed consent were obtained. A timeout was performed verifying the correct patient, site and procedure. The patient was placed in a supine position on the US table. Preliminary sonographic evaluation confirmed the presence of the previously placed biopsy clip within the abnormal lymph node. The skin was prepped and draped in usual sterile fashion. Local anesthesia was obtained using 4 mL 1% lidocaine solution. Under ultrasound guidance, a magnetic seed was deployed adjacent to the hydromark biopsy clip. The patient tolerated the procedure well. There were no immediate complications. Post procedure mammogram: A 2D LM mammogram of the right breast was obtained for evaluation of Magseed placement. Images interpreted on a dedicated mammography workstation. The Magseed is located immediately adjacent to the biopsy clip. IMPRESSION: 1. Technically successful ultrasound-guided Magseed placement prior to surgical excision. 2. Post-procedural mammogram for Magseed placement. BIRADS:Post Magseed Finalized by Althea Miller MD on 10/16/2023 2:32 PM 2000 [facility] US LOC BRST US GUID INIT RTo n 10-16-2023 US LOC BRST US GUID INIT RT US LOC BRST US GUID INIT RT IKE JONES 1970 [id number], [id number] EXAM: MAMM POST BX DIAG UNI RT, US LOC BRST US GUID INIT RT, 10/16/2023 2:17 PM CLINICAL INDICATIONS: Right breast malignancy, axillary Magseed placement prior to surgical excision COMPARISON: Right axillary biopsy 05/08/2023 PERFORMING PHYSICIAN: Althea Miller MD PROCEDURE: The risks, benefits, and alternatives of the procedure were explained in detail to the patient and both verbal and written informed consent were obtained. A timeout was performed verifying the correct patient, site and procedure. The patient was placed in a supine position on the US table. Preliminary sonographic evaluation confirmed the presence of the previously placed biopsy clip within the abnormal lymph node. The skin was prepped and draped in usual sterile fashion. Local anesthesia was obtained using 4 mL 1% lidocaine solution. Under ultrasound guidance, a magnetic seed was deployed adjacent to the hydromark biopsy clip. The patient tolerated the procedure well. There were no immediate complications. Post procedure mammogram: A 2D LM mammogram of the right breast was obtained for evaluation of Magseed placement. Images interpreted on a dedicated mammography workstation. The Magseed is located immediately adjacent to the biopsy clip. IMPRESSION: 1. Technically successful ultrasound-guided Magseed placement prior to surgical excision. 2. Post-procedural mammogram for Magseed placement. BIRADS:Post Magseed Finalized by Althea Miller MD on 10/16/2023 2:32 PM 2000 Normal [facility] Orders Onlyon 10-08-2023 Orders Only [id number] Ike Jones 1970 F Date Provider Department Center 10/08/2023 Lillian-LEIGH CUELLO CAMERON Pineda Family History Adopted: Yes Problem Relation Age of Onset Heart attack Father Family Status - Relation Status Age at Father Normal [facility] MR BREAST BILAT W WO CONT W [...] image and subtraction processing were performed using Bens[employer] software. The images were interpreted using image [...] 1:55 PM 6 F/U REFER DR [place] [facility] Office Visiton 08-31-2023 Follow-up visit [id number] Ike Jones 1970 F Date Provider Department [facility] Family History Adopted: Yes Problem Relation Age of Onset Heart attack Father Family Status - Relation Status Age at Father Level of Service:70545 ME OFFICE/OUTPATIENT NEW MODERATE MDM 45 MINUTES Normal [facility] Ambulatory Visit Summaryon 0 06-04-2023 Ambulatory Visit Summary IKE JONES :1970 Visit Date:06/04/2023 Ambulatory Visit Instructions Your Care Team Attending Physician - BRENNON JAMESON, Sandrita Reynoso Primary Care Physician - RANDY CALLE [...] for choosing us for your care. Normal [facility] General Surgery Office/Clini c Noteon 06-04-2023 General Surgery Office/Clinic Note Chief Complaint post operative follow up HPI Staff 22 day post operative follow up post port insertion. Denies discomfort. no use of pain medication. Denies bleeding or drainage. Port has been accessed three times without incident. History of Present Illness s/p left subclavian ihngbs-u-clom insertion 3 weeks ago; doing well, mild [...] influenza virus vaccine, inactivated 12/29/2012 Recorded Normal [facility] Comment on above: Result Comment: Elec tronically Signed By: BRENNON JAMESON, Sandrita Mays\Date and Time Signed: 06/04/23 09:37 EDT Operative Reporton Operative Report [id number] .00TIFF Normal [facility] RAD - MISCon 05-14-2023 RAD - MISC [id number] .00TIFF Normal [facility] RAD - MISC [id number] .00TIFF Normal [facility] RAD - MISC [id number]#1 .00TIFF Normal [facility] ECG 12-Leadon 05-11-2023 ECG 12-Lead [id number] .00TIFF Normal [facility] MR Breast - bilateral WO and W contrast Ashwin 05-08-2023 MR BREAST BILAT W WO CONT W CAD BREAST MRI OF BOTH BREASTS- WITH CAD: 05/08/2023 CLINICAL: Preoperative Staging, Right breast cancer abnormal right axillary, internal mammary and subpectoral lymph nodes on recent PET /CT (done at [facility]) PET report also described other foci of increased uptake in the subareolar right breast consistent with other foci of carcinoma images are NOT available for comparison and no size of these foci of uptake was provided. Comparison is made to exams dated: 03/06/2023 mammogram, 03/20/2023 mammogram, 03/20/2023 ultrasound, 03/26/2023 ultrasound biopsy, 03/20/2023 ultrasound biopsy, and 03/26/2023 mammogram - [facility]. CONTRAST VOLUME ADMINISTERED: 10 mL Gadavist intravenously. CONTRAST DISCARDED: 0 mL Gadavist TECHNICAL: All images are generated with the [facility]'s 1.5T MRI employing 8 channel dedicated breast coils (1mm slice thickness with a .2mm gap). This machine employs a specialized trasmit-receive coil. Three-dimensional, high resolution fat suppressed T1 weighted images were obtained prior to, immediately following, and after a delay relative to gadolinium contrast administration. A precontrast T2 weighted image was also acquired. 3D image and subtraction processing was performed using [employer] software. The images were interpreted using image [...] MRI BI-RADS: 6: Known Biopsy Proven Malignancy SECTRARosemary Baker, MD - 05/11/2023 MR BREAST BILAT W WO CONT W CAD BREAST MRI OF BOTH BREASTS- WITH CAD: 05/08/2023 CLINICAL: Preoperative Staging, Right breast cancer abnormal right axillary, internal mammary and subpectoral lymph nodes on recent PET /CT (done at [facility]) PET report also described other foci of increased uptake in the subareolar right breast consistent with other foci of carcinoma images are NOT available for comparison and no size of these foci of uptake was provided. Comparison is made to exams dated: 03/06/2023 mammogram, 03/20/2023 mammogram, 03/20/2023 ultrasound, 03/26/2023 ultrasound biopsy, 03/20/2023 ultrasound biopsy, and 03/26/2023 mammogram - [facility]. CONTRAST VOLUME ADMINISTERED: 10 mL Gadavist intravenously. CONTRAST DISCARDED: 0 mL Gadavist TECHNICAL: All images are generated with the [employer]'s 1.5T MRI employing 8 channel dedicated breast coils (1mm slice thickness with a .2mm gap). This machine employs a specialized trasmit-receive coil. Three-dimensional, high resolution fat suppressed T1 weighted images were obtained prior to, immediately following, and after a delay relative to gadolinium contrast administration. A precontrast T2 weighted image was also acquired. 3D image and subtraction processing was performed using [employer] software. The images were interpreted using image [...] MRI BI-RADS: 6: Known Biopsy Proven Malignancy [email or web address] Radiology Study observation (narrative) [employer] MR Breast - bilateral WO and W contrast IVOrdered By: Rosemary Gasca on 05-08-2023 [email or web address] Work Phone: Surgical Pathologyon 024 Surgical Pathology Normal [facility] Comment on above: Result Comment: [facility] [address] [place] [address] Surgical Pathology Consultation ADDENDUM ME Patient Name:IKE JONES:1970 (Age: 52)Gender:FTaken:05/08/2023eported:05/11/2023hysician(s):Mesha He MD ([phone])Copy To:MD Aarti MosquedalaAccession #:[id number]. Rec. #:[id number]: #[id number] Final Pathologic Diagnosis Right axilla lymph node, ultrasound-guided needle core biopsy: METASTATIC MAMMARY CARCINOMA. Note: ER, ME and HER2 studies are pending Report Electronically Signed Out ssi/05/11/2023Abhilash Marquez M.D. Addendum ([facility]) Date Reported: 05/12/2023 BREAST BIOMARKER REPORTING TEMPLATE [...] and Drug Administration (FDA) cleared (test/vendor): Confirm/ Mcgrew, Primary Antibody: SP1 Progesterone Receptor: FDA cleared (test/vendor): Confirm/ Mcgrew, Primary Antibody: 1E2 HER2: FDA approved (test/vendor): Pathway/ Mcgrew, Primary Antibody: 4B5 Detection System (ER, PgR and/or HER2): Mcgrew ultraView [place] DAB Detection Kit (indirect biotin-free detection) Scoring [...] tumor cells References 1. Micaela SOTO, Humberto ME, Shorty M, et al. Estrogen and Progesterone receptor Testing in Breast Cancer; [place] Society of Clinical Oncology/College of [place] Pathologists Guideline Update. Arch Pathol Lab Med. doi:10.5858/arpa.3266-5851-DL. 2. Bacilio SIEGEL, Humberto ANUSHA, Micaela KH, et al. Human Epidermal Growth Factor Receptor 2 Testing in Breast Cancer; [place] Society of Clinical Oncology/College of [place] Pathologist Clinical Practice Guideline Focused Update. Arch Pathol Lab Med. doi: 10.5858/arpa.1103-7231-SV. Electronically Signed Out Abhilash Marquez M.D. Interpretation performed at [facility], [address] [place] [address], License number: [id number]. Clinical History Description: Right axilla tissue. Biopsy procedure: ultrasound; Target: lymph node; Laterality: right axilla; Location: right axilla; BI-RAD: 5; Suspect: lymph node mets. Gross Description Received in formalin labeled ROBERT, right axilla tissue are 5 pale dash to yellow-mahmood fibrofatty needle core biopsy segments, ranging from 1 cm to 2.2 cm. The cores are submitted in cassettes A-B. Fixation Time: Tissue removed from patient: 1322 Time specimen placed in formalin: 1326 Cold ischemic time: 4 minutes Total fixation time: 31 hours (2,ns,Y14-06090, m6) . /05/08/2023EAK Specimen(s) Received Right axilla Fee Codes(s): 1; 86080, 18722-HV, 60419-GJ, 35741 Insurance Correspondenceon 0 05-04-2023 Insurance Correspondence [id number]#1 .00TIFF Normal [facility] Consent for Procedure/Surger yon 04-14-2023 Consent for Procedure/Surgery [id number]#1 .00TIFF Normal [facility] Ambulatory Visit Summaryon 0 04-10-2023 Ambulatory Visit Summary IKE JONES :1970 Visit Date:04/10/2023 Ambulatory Visit Instructions Your Care Team Attending Physician - BRENNON JAMESON, Sandrita Reynoso Primary Care Physician - RANDY CALLE [...] for choosing us for your care. Normal [facility] Consultation Noteon 04-10-19 24 Consultation Note [id number]#1 .00TIFF Normal [facility] Lab Reportson 04-10-2023 Lab Reports [id number]#1 .00TIFF Normal [facility] Surgical Pathologyon 024 Surgical Pathology [facility] Comment on above: Result Comment: [facility] [address] [place] [address] Surgical Pathology Consultation Patient Name:IKE OJNES ADOB:1970 (Age: 52)Gender:FTaken:4Reported:04/21/2023hysician(s):Mesha He MD ([phone])Copy To: Rec. #:[id number]: #[id number] Final Pathologic Diagnosis Right breast, 4:00 mass , core needle biopsy ([facility], [place], [place]; [id number], 03/26/2023): - INVASIVE MAMMARY CARCINOMA, DUCTAL TYPE with areas of necrosis. - Greatest length of invasive carcinoma: 11 mm - Histologic grade: Huntington histologic score: 8/9 - Glandular (acinar)/tubular differentiation: 3 - Nuclear pleomorphism: 3 - Mitotic rate: 2 - In-situ component: Not definitively identified. - Lymph-vascular invasion: Not definitively identified. - Microcalcifications: Present. COMMENT: E-cadherin immunostain is strongly and diffusely positive, supporting the above diagnosis of ductal carcinoma. Control is satisfactory. Breast biomarkers are performed and show ER: Positive (12-15% of nuclear staining, weak staining); ME: Negative; HER2: Negative (0% of cells with uniform intense complete membrane staining). Internal controls for the biomarkers are present and stain as expected. Intradepartmental consultation has been completed on this case by a second pathologist who concurs with the above diagnosis. Report Electronically Signed Out eak/04/21/2023Chayo Wu MD Interpretation performed at [facility], [address] [place] [address], License number: [id number]. Clinical History Invasive ductal carcinoma. Gross Description Received are 10 prepared slides and 1 block labeled [id number] from [facility], that are accompanied by the contributing pathologist???s report that bears this patient???s name and the accession number as it appears on the slides. EAK Specimen(s) Received Consult case from [facility], 10 slides and 1 block labeled [id number] Fee Codes(s): 1; 55470 Outside Mammographyon 2023 Outside Mammography [id number]#1 .00TIFF Normal [facility] Pathology Noteon 04-07-2023 Pathology Note [id number]#1 .00TIFF Normal [facility] RAD - Ultrasound Reporton RAD - Ultrasound Report [id number]#1 .00TIFF Normal [facility] BMPon 04-06-2023 Anion gap [Moles/Vol] 10 mmol/L Normal 6-16 [facility] Comment on above: Performed By: #### 2 [id number], [id number] ####[facility] [address] [place] [address] BUN/Creat Ratio 18 No Units Normal 10-20 [facility] Comment on above: Performed By: #### 2 211167, [id number] ####[facility] [address] [place] [address] Calcium [Mass/Vol] 10.5 mg/dL Normal 8.9-11.1 [facility] Comment on above: Performed By: #### 2 679154, [id number] ####[facility] [address] [place] [address] Chloride [Moles/Vol] 101 mmol/L Normal 101-111 [facility] Comment on above: Performed By: #### 2 321591, [id number] ####[facility] [address] [place] [address] CO2 [Moles/Vol] 32 mmol/L High 21-31 [facility] Comment on above: Performed By: #### 2 996165, [id number] ####[facility] [address] [place] [address] Creatinine [Mass/Vol] 1.0 mg/dL Normal 0.5-1.3 [facility] Comment on above: Performed By: #### 2 336639, [id number] ####[facility] [address] [place] [address] Glucose [Mass/Vol] 90 mg/dL Normal 55-199 [facility] Comment on above: Performed By: #### 2 900616, [id number] ####[facility] [address] [place] [address] Potassium [Moles/Vol] 3.4 mmol/L Low 3.5-5.3 [facility] Comment on above: Performed By: #### 2 866803, [id number] ####[facility] [address] [place] [address] Sodium [Moles/Vol] 140 mmol/L Normal 135-145 [facility] Comment on above: Performed By: #### 2 668595, [id number] ####[facility] [address] [place] [address] Urea nitrogen [Mass/Vol] 18 mg/dL Normal 5-21 [facility] Comment on above: Performed By: #### 2 987516, [id number] ####[facility] [address] [place] [address] CHEMISTRYOrdered By: SYSTEM SYSTEM on 04-06-2023 Anion gap [Moles/Vol] 10 mmol/L Normal 6 - 16 mEq/L Remisol Chem Calcium [Mass/Vol] 10.5 mg/dL Normal 8.9 - 11. 1 mg/dL Remisol Chem Chloride [Moles/Vol] 101 mmol/L Normal 101 - 1 11 mmol/L Remisol Chem CO2 [Moles/Vol] 32 mmol/L High 21 - 31 mmol/L Remisol Chem Creatinine [Mass/Vol] 1.0 mg/dL Normal 0.5 - 1.3 mg/dL Remisol Chem eGFR 68 mL/min/1.73 m2 Normal >=59mL/min /1.73 m2 Remisol Chem Glucose [Mass/Vol] 90 mg/dL [...] Chem Consent for Treatmenton Consent for Treatment [id number]#1 .00TIFF Normal [facility] Physician Orderon 04-06-2023 Physician Order [id number]# 1.00TIFF Normal [facility] eGFRon 04-06-2023 eGFR 68 mL/min/1.73 m2 Normal >=59 [facility] Comment on above: Order Comment: Order added by Discern Expert. Performed By: #### 2 [id number], [id number] ####[facility] [address] [place] [place] [address] [facility] 03-26-2023 L Specimen: [id number] Received: 03/26/23 Status: SOUMagui Lentz Num: [id number] Spec Type: Surgical Subm Dr: Leidy Lopez Tissues: A BREAST CORE NO CALCS (RT BREAST MASS 4:00) Procedures: HE/2, Gross/Micro L4, CK5 6, E CADHERIN, ER, p63, ME Age/ Patient Sex Location Account Attending Physician Ike Jones 52/F LABEL [id number] GUY Khan [employer] SPEC NUM: [id number] RECD: 03/26/23 STATUS: SOUMagui REQ NUM: [id number] AMY: 03/26/23 DR: Leidy Lopez ENTERED: 03/26/23 [facility] DR: Suzanne,Lab SPEC TYPE: Surgical DEPT: JORGE ALBERTO ROSALES ORDERED: HE/2, Gross/Micro L4, CK5 6, E CADHERIN, ER, p63, ME ORDERED: HE/2, Gross/Micro L4, CK5 6, E CADHERIN, ER, p63, ME Supplemental Report Addendum 1 Entered: 04/02/23-6018 Supplemental for findings of HER2 by immunohistochemistry from [employer]: -Negative, Score 0 Addendum Signed (signature on file) Elvis Mcgregor MD 04/02/23 1349 -------- Pathological Diagnosis Right breast 4:00 mass, biopsy: Invasive Ductal Carcinoma Grade 3 (combined Score Of 8/9). Histologic Grade: Grade 3 Glandular/tubular Differentiation: 3 Nuclear Pleomorphism: 3 Mitotic Rate: 2 Overall Score: 8 Breast Hormone Profile -------- Specimen: [id number] Received: 03/26/23-5221 Status: EUGENIO Lentz Num: [id number] Spec Type: Surgical Subm Dr: Leidy Lopez Tissues: A BREAST CORE NO CALCS (RT BREAST MASS 4:00) Procedures: HE/2, Gross/Micro L4, CK5 6, E CADHERIN, ER, p63, ME -------- Patient: Ike Jones [id number] (Continued) -------- Specimen: [id number] Received: 03/26/23 (Continued) Pathological Diagnosis (Continued) Signed (signature on file) Lazarus Chiang MD 03/31/23 1747 -------- Specimen: [id number] Received: 03/26/23 Status: EUGENIO Tor Num: [id number] Spec Type: Surgical Subm Dr: Leidy Lopez Tissues: A BREAST CORE NO CALCS (RT BREAST MASS 4:00) Procedures: HE/2, Gross/Micro L4, CK5 6, E CADHERIN, ER, p63, ME -------- Patient: Ike Jones [id number] (Continued) -------- Specimen: [id number] Received: 03/26/23 (Continued) Pathological Diagnosis (Continued) ER: Weakly Positive ME: Negative Her2: Pending Clinical Information Mass Gross [...] 0.03 Formalin Fixation Time: 14.78 CPT Codes 68531 -------- -------- Specimen: [id number] Received: 03/26/23 Status: EUGENIO Lentz Num: [id number] Spec Type: Surgical Subm Dr: Leidy Lopez Tissues: A BREAST CORE NO CALCS (RT BREAST MASS 4:00) Procedures: HE/2, Gross/Micro L4, CK5 6, E CADHERIN, ER, p63, ME -------- Patient: Ike Jones [id number] (Continued) -------- Signed (signature on file) Lazarus Chiang MD 03/31/23 1747 Normal [facility]2023 Anion gap [Moles/Vol] 9 mmol/L Normal 6-16 [facility] Comment on above: Performed By: #### 2 148442, [id number] ####[facility] [address] [place] [address] BUN/Creat Ratio 26 No Units High 10-20 [facility] Comment on above: Performed By: #### 2 009696, [id number] ####[facility] [address] [place] [address] Calcium [Mass/Vol] 9.4 mg/dL Normal 8.9-11.1 [facility] Comment on above: Performed By: #### 2 564271, [id number] ####[facility] [address] [place] [address] Chloride [Moles/Vol] 103 mmol/L Normal 101-111 [facility] Comment on above: Performed By: #### 2 361606, [id number] ####[facility] [address] [place] [address] CO2 [Moles/Vol] 32 mmol/L High 21-31 [facility] Comment on above: Performed By: #### 2 098250, [id number] ####[facility] [address] [place] [address] Creatinine [Mass/Vol] 0.7 mg/dL Normal 0.5-1.3 [facility] Comment on above: Performed By: #### 2 668492, [id number] ####[facility] [address] [place] [address] Glucose [Mass/Vol] 88 mg/dL Normal 55-199 [facility] Comment on above: Performed By: #### 2 574648, [id number] ####[facility] [address] [place] [address] Potassium [Moles/Vol] 2.8 mmol/L Abnormal 3.5-5.3 [facility] Comment on above: Performed By: #### 2 370883, [id number] ####[facility] [address] [place] [address] Sodium [Moles/Vol] 141 mmol/L Normal 135-145 [facility] Comment on above: Performed By: #### 2 650114, [id number] ####[facility] [address] [place] [address] Urea nitrogen [Mass/Vol] 18 mg/dL Normal 5-21 [facility] Comment on above: Performed By: #### 2 283609, [id number] ####[facility] [address] [place] [address] CHEMISTRYOrdered By: SYSTEM SYSTEM on 03-20-2023 Anion gap [Moles/Vol] 9 mmol/L Normal 6 - 16 mEq/L Remisol Chem Calcium [Mass/Vol] 9.4 mg/dL Normal 8.9 - 11. 1 mg/dL Remisol Chem Chloride [Moles/Vol] 103 mmol/L Normal 101 - 1 11 mmol/L Remisol Chem CO2 [Moles/Vol] 32 mmol/L High 21 - 31 mmol/L Remisol Chem Creatinine [Mass/Vol] 0.7 mg/dL Normal 0.5 - 1.3 mg/dL Remisol Chem eGFR 104 mL/min/1.73 m2 Normal >=59mL/mi n /1.73 m2 Remisol Chem Glucose [Mass/Vol] 88 mg/dL [...] Consent for Treatmenton 03-02 Consent for Treatment [id number]#1 .00TIFF Normal [facility] Physician Orderon 03-20-2023 Physician Order [id number]# 1.00TIFF Normal [facility] eGFRon 03-20-2023 eGFR 104 mL/min/1.73 m2 Normal >=59 [facility] Comment on above: Order Comment: Order added by Discern Expert. Performed By: #### 2 776302, [id number] ####[facility] [address] [place] [address] [address] Cardiac Scoring Normal -[facility] 250 DO Work Phone: Office Visit (Cardiology)on 09-29-2022 Follow-up visit Diagnoses/Problems Assessed Hypertension (401.9) (I10) Edema (782.3) (R60.9) Class 1 obesity with body mass index (BMI) of 31.0 to 31.9 in adult (278.00,V85.31) (E66.9,Z68.31) Orders Class 1 obesity with body mass index (BMI) of 31.0 to 31.9 in adult Healthy Weight Tips; Status:Complete; Done: [id number] Edema, Hypertension Basic Metabolic Panel; Status:Active; Requested for:16Rgm3522; CT Cardiac Scoring; Status:Active; Requested for:79Qej3869; Patient taking Metformin or Derivatives? : No [...] Allergies Medication Demerol TABS Swelling; Recorded By: Shena Norwood; 07/21/2022 8:10:36 AM Social History Problems Never a smoker No caffeine use No illicit drug use Social alcohol use (V49.89) (Z78.9) Review of Systems Constitutional: not feeling tired. Cardiovascular: no chest pain, no palpitations and no lower extremity edema. Respiratory: no shortness of breath during exertion, no orthopnea and no PND. Vitals Vital Signs Recorded: 49Tpe6716 02:29PM Heart Rate76, L Radial Igbkprcr163, LUE, Sitting Ycjolnbyu94, LUE, Sitting Height5 ft 11 in Rfnnxv294 lb BMI Easaguolvv47.52 kg/m2 BSA Calculated2.22 Tobacco Useb) No PHQ-2 #1. Over the last 2 weeks have you felt down, depressed or hopeless? (If yes, answer PHQ-9 below)No PHQ-2 #2. Over the last 2 weeks have you felt little inter (more content not included)... Normal [employer] Tobacco Screening.on 023 Adult depression screening assessment No [facility] 250 DO Work Phone: Fall risk assessment c) Not medically indicated [facility] 250 DO Work Phone: Tobacco use status [facility] b) No [facility] 250 DO Work Phone: Tobacco Screening.on [address] [facility] b) No [facility] 250 DO Work Phone: CHEMISTRYOrdered By: SYSTEM SYSTEM on 08-15-2022 Anion gap [Moles/Vol] 10 mmol/L Normal 6 - 16 mEq/L FT Remisol Calcium [Mass/Vol] 9.7 mg/dL Normal 8.9 - 11. 1 mg/dL FT Remisol Chloride [Moles/Vol] 102 mmol/L Normal 101 - 1 11 mmol/L FT Remisol Creatinine [Mass/Vol] 0.7 mg/dL Normal 0.5 - 1.3 mg/dL [facility] Remisol GFR/1.73 sq M.predicted among non-blacks MDRD (S/P/Bld) [Vol rate/Area] 105 mL/min/1.73 m2 Normal >=59mL/min /1.73 m2 [facility] Chem S Glucose [Mass/Vol] 92 mg/dL Normal 55 - 199 mg/dL FT Remisol Potassium [Moles/Vol] 2.9 mmol/L Low 3.5 - 5.3 mmol/L [facility] Remisol Sodium [Moles/Vol] 138 mmol/L Normal 135 - 145 mmol/L FT Remisol Urea nitrogen [Mass/Vol] 15 mg/dL Normal 5 - 21 mg/dL [facility] Remisol Urea nitrogen/Creatinine [Mass ratio] 21 mg/mg High 10 - 20 FT Remisol Laboratory - Chemistry and C hemistry - challengeOrdered By: SYSTEM SYSTEM on 08-15-2022 CO2 [Moles/Vol] 29 mmol/L Normal 21-31 [facility] Niko yuliet Laboratory - Chemistry and C hemistry - challengeOrdered By: Sandrita Bettencourt on 08-15-2022 Natriuretic peptide B (Bld) [Mass/Vol] 23 pg/mL Normal 5-80 [facility] HemeManSS No Panel Informationon 08-15 105 {mL/min/1.73_m2} Normal >=59 [facility] [employer] 250 DO Work Phone: Comment on above: Chronic kidney disea se could be indicated at eGFR's of less than 60 mL/min/1.73m2. Kidney failure is indicated at less than 15 mL/min/1.73m2. 10 {mEq/L} Normal 6-16 [facility] 250 DO Work Phone: 102 mmol/L Normal 101-111 [facility] [employer] 250 DO Work Phone: 2.9 mmol/L below low threshold 3.5-5.3 [facility] [employer] 250 DO Work Phone: 138 mmol/L Normal 135-145 [facility] [employer] 250 DO Work Phone: 9.7 mg/dL Normal 8.9-11.1 [facility] [employer] DO Work Phone: 21 {No_Units} above high threshold 10-20 [facility] [employer] 250 DO Work Phone: 0.7 mg/dL Normal 0.5-1.3 [facility] [employer] 250 DO Work Phone: 15 mg/dL Normal 5-21 [facility] [employer] 250 DO Work Phone: 92 mg/dL Normal 55-199 [facility] [employer] DO Work Phone: Comment on above: If this glucose resu lt represents a fasting glucose, interpretation should refer to the following reference range: 55-99 mg/dL Pass Normal [facility] [employer] DO Work Phone: Office Visit (Cardiology)on 07-21-2022 Follow-up visit Diagnoses/Problems [...] Coreg 25 MG Oral Tablet (Carvedilol) Stop: Lisinopril-hydroCHLOR Othiazide 20-12.5 MG Oral Tablet Patient Instructions Please [...] MG Oral TabletTAKE 1 TABLET Twice daily Lisinopril-hydroCHLOR Othiazide 20-12.5 MG Oral TabletTAKE 1 TABLET DAILY. traZODone HCl - 50 MG Oral TabletTAKE 1 TABLET AT BEDTIME. Allergies Medication Demerol TABS Swelling; Recorded By: Shena Norwood; 07/21/2022 8:10:36 AM Social History Problems [...] negative for complaint. Vitals Vital Signs Recorded: [id number] 08:15AMRecorded: 13Wqk4735 08:14AM Schezbem836, RUE, Zvzpzmq447, LUE, Sitting Tbaqtrtof71, RUE, Xaskkuv38, LUE, Sitting Heart Rate59, Apical Height5 ft 11 in Qrcgot572 lb BMI Ypiuhbypzj62.82 kg/m2 BSA Calculated2.2 Tobacco Useb) No PHQ-2 [...] Screening.on 023 Adult depression screening assessment No [facility] 250 DO Work Phone: Fall risk assessment a) No falls within the last year [facility] 250 DO Work Phone: Tobacco use status CPHS b) No M [facility] 250 DO Work Phone: PAP ACOG PANEL 2: 30 to 65on 01-03-2022 . . Normal [facility] Comment on above: Result Comment: Perf ormed at: WB Performed By: #### 4 [id number] #### [facility] [address] [address] [address] Daniel Mcgregor Age Gdln ACOG Testing - Normal [facility] Comment on above: Performed By: #### 4 [id number] #### [facility] [address] [address] [address] Daniel Mcgregor DIAGNOSIS: Comment Normal [facility] Comment on above: Result Comment: NEGA TIVE FOR INTRAEPITHELIAL LESION OR MALIGNANCY. Performed at: WB Performed By: #### 4 [id number] #### [facility] [address] [address] [address] Daniel Mcgregor HPV Aptima Negative Normal Negative [facility] Comment on above: Result Comment: This nucleic acid amplification test detects fourteen high-risk HPV types (16,18,31,33,35,39,45,51,52,56,58,59,66,68) without differentiation. Performed at: =G Performed By: #### 4 [id number] #### [facility] [address] [address] [address] Daniel Mcgregor HPV Genotype Reflex Comment Normal [facility] Comment on above: Result Comment: Crit eria not met, HPV Genotype not performed. Performed at: WB Performed By: #### 4 [id number] #### [facility] [address] [place] [address] Dr. Daniel Mcgregor Methodology: Comment Normal [facility] Comment on above: Result Comment: This liquid based ThinPrep(R) pap test was screened with the use of an image guided system. Performed at: WB Performed By: #### 4 [id number] #### [facility] [address] [place] [address] Dr. Daniel Mcgregor Note: Comment Normal [facility] Comment on above: Result Comment: The Pap smear is a screening test designed to aid in the detection of premalignant and malignant conditions of the uterine cervix. It is not a diagnostic procedure and should not be used as the sole means of detecting cervical cancer. Both false-positive and false-negative reports do occur. . Performed at: WB Performed By: #### 4 [id number] #### [facility] [address] [place] [address] Dr. Daniel Mcgregor Performed by: Comment Normal [facility] Comment on above: Result Comment: Roxann Ambriz, Chain Maker Loom Control (ASCP) Performed at: WB Performed By: #### 4 [id number] #### [facility] [address] [place] [address] Dr. Daniel Mcgregor Specimen adequacy: Comment Normal [facility] Comment on above: Result Comment: Sati sfactory for evaluation. No endocervical component is identified. Performed at: WB Performed By: #### 4 [id number] #### [facility] [address] [place] [address] Dr. Daniel Mcgregor MG MAMM SCREEN 3D VONNIE CADon 12-13-2021 MG MAMM SCREEN 3D VONNIE CAD Patient: IKE JONES Exam Date: 12/13/2021 : 1970 Gender:F Ordering : DR KAYE JARQUIN Admission #: [id number] Family : DR DAYANA BASHIR . Order #: [id number] CLICK HERE TO VIEW EXAM RADIOLOGY REPORT [...] Treatments None Family Cancers None LOCATION: [facility] BREAST COMPOSITION: Heterogeneously dense,which may obscure small [...] MD on 12/13/2021 at 08:39 Normal [facility] COVID Quick Testingon 2021 Result Negative [facility] Other BASIC METABOLIC PANELon 08-31 BUN/CREATININE RATIO NOT APPLICABLE Normal 6-22 [facility] Comment on above: Performed By: #### 5 996, 64795, 49846 #### [facility] [address] [address] Carpenter Assistant: Heraclio Miller MD Calcium [Mass/Vol] 9.7 mg/dL Normal 8.6-10.4 [facility] Comment on above: Performed By: #### 5 746, 21745, 98329 #### [facility] [address] [address] Carpenter Assistant: Heraclio Miller MD Chloride [Moles/Vol] 103 mmol/L Normal 98-110 [facility] Comment on above: Performed By: #### 5 796, 24345, 04310 #### [facility] [address] [address] Carpenter Assistant: Heraclio Miller MD CO2 [Moles/Vol] 30 mmol/L Normal 20-32 [facility] Comment on above: Performed By: #### 5 616, 46465, 33284 #### [facility] [address], [address] [place], [place] [id number] Carpenter Assistant: Heraclio Miller MD Creatinine [Mass/Vol] 0.77 mg/dL Normal 0.50-1.[address] [facility] Comment on above: Performed By: #### 5 616, 82366, 14398 #### [facility] [address], [address] [place] [address] Carpenter Assistant: Heraclio Miller MD GFR/1.73 sq M.predicted among non-blacks MDRD (S/P/Bld) [Vol rate/Area] 94 mL/min/{1.73_m2} Normal > OR = 60 [facility] Comment on above: Result Comment: The eGFR is based on the CKD-EPI 2020 equation. To calculate the new eGFR from a previous Creatinine or Cystatin C result, go to https://www.kidney.org/professionals/ kdoqi/gfr%5Fcalculator Performed By: #### 5 616, , #### [facility] [address], [address] [place] [address] Carpenter Assistant: Heraclio Miller MD Glucose [Mass/Vol] 91 mg/dL Normal 65-99 [facility] Comment on above: Result Comment: Fasting reference interval Performed By: #### 5 616, 12269, 00399 #### [facility] [address] [place] [address] Carpenter Assistant: Heraclio Miller MD Potassium [Moles/Vol] 3.4 mmol/L Low 3.5-5.[address] [facility] Comment on above: Performed By: #### 5 616, 98376, 22970 #### [facility] [address] [address] Carpenter Assistant: Heraclio Miller MD Sodium [Moles/Vol] 140 mmol/L Normal 135-146 [facility] Comment on above: Performed By: #### 5 616, 23798, 85287 #### [facility] [address], [address] [place] [address] Carpenter Assistant: Heraclio Miller MD Urea nitrogen [Mass/Vol] 11 mg/dL Normal 7-25 [facility] Comment on above: Performed By: #### 5 616, 73495, 87917 #### [facility] [address] [place] [address] Carpenter Assistant: Heraclio Miller MD IRON, TIBC AND FERRITIN PANE [place] 09-21-2021 % SATURATION 10 % (calc) Low 16-45 [facility] Comment on above: Order Comment: FASTI NG:YES FASTING: YES Performed By: #### 5 616, 87254, 17958 #### [facility] [address] [place] [address] Carpenter Assistant: Heraclio Miller MD Ferritin [Mass/Vol] 11 ng/mL Low 16-232 [facility] Comment on above: Order Comment: FASTI NG:YES FASTING: YES Performed By: #### 5 616, 23416, 60547 #### [facility] [address] [place] [address] Carpenter Assistant: Heraclio Miller MD IRON BINDING CAPACITY 542 mcg/dL (calc) High 250-450 [facility] Comment on above: Order Comment: FASTI NG:YES FASTING: YES Performed By: #### 5 616, 69247, 66415 #### [facility] [address] [address] Carpenter Assistant: Heraclio Miller MD IRON, TOTAL 54 mcg/dL Normal 45-160 [facility] Comment on above: Order Comment: FASTI NG:YES FASTING: YES Performed By: #### 5 616, 28397, 94895 #### [facility] [address] [place] [address] Carpenter Assistant: Heraclio Miller MD TSH W/REFLEX TO FT4on 2021 TSH W/REFLEX TO FT4 3.86 mIU/L Normal [facility] Comment on above: Result Comment: Refe rence Range > or = 20 Years 0.40-4.50 Ranges First trimester 0.26-2.66 Second trimester 0.55-2.73 Third trimester 0.43-2.91 Performed By: #### 5 616, 26025, 10181 #### [facility] [address] [facility], [address] [place] [address] Carpenter Assistant: Heraclio Miller MD Consent Formson 09-09-2021 Consent Forms [id number] [facility] Coding Summaryon 09-03-2021 Coding Summary HTMLBase 64 OywuafgoASw3gFq+PGhlY WQ+BK0VJORmL72jbHEitT 0AJ0sPCV1PMJXWCFDZRJ4 ECE5mkQV2LHlvY5PapaHc SnunqFTlJW47FZr1JFG3q XabLOnjdU3bkQUyR4h5Zx BkVO66iK97MNnyBGMyUlC 3LjZpbjsgbWFy F5eyOoIkvPYmLok+PHRhY mxlIHdpZHRoPScxMDAlJy PizVceNY6aUj8vDFTeXBT vbGxhcHNlOiBj b4ytZPAeKAirUR9poHjpI 4CdqLK0MWTec8o4Hf95aP I+VXZiWSZ4pUgjBScvm29 4LqZcc2qyYPG0 jVQxJMzcTRF5Q01pi7Q6L PYoSSQxSPF4uQD7aJ6zqL lyselqH2IdqTVqSmM9EQJ 4fJRgtG9woVpy rzzoaY5jYxr+V26MDH2KB UAQPC7WKpk7S3PwQkmyqB I+AR10LDOwDR84sDZgfDB jv9sgvMh7NwPu QIQlFUT9tEwpRGgqj0GkJ VCwC03plFNoq2K2ZXStmQ xcxVElKtIcaDS1hT7nXUx tqlffe8avqjsz Xbhmx5usjw89fR45V47hP TixJWWoXSG5CQGhMGVknH dfmw3hhN9pDo0+PEtqb3l cr4kggJq4NvGn EWQrtrVmvDwdPUB6m2ThL r91S5GvnHdzp0AgVwu1vv 01tZCmu1H0sLN5BQnvHGJ thN7uCNymLiP8 TZSpEqBjgC24fQIsJMxnU x1cjSumoXgzUL6uLMDhmp ixUWDfbK4wDYOkmXNzpLw fSQ6mTHLeigui p142EjPiZTE2UEWjyFOtB 2RggM6qAiLdMGVfCLOhA2 XxaHIfCXbnF400IAfoGoX 0XECfmbInN5Nv LTEngYdqWeD4n7N6Ru7Rl 4EnreyuKVS1HRftGJV7Oa I9QxKwAsB3M1NiNum6LQZ wkYqfCT9rO6My PNZfqordcnirpUP8PHDvA LGznV75oVUuDVbuYe3rb5 R0k362GVWqAOKizT96La7 udDogMTBwdCBU wD7rgsaqx2bkjgrhKjYfS AScSPp6DBw5YZBlrBriNn TbEUS8EfA5VUT9eVUkcI0 rzWjmvkdhgZ6d Oyc+K22pqD4vCDQ2QZN6z uesOAIbxyLcUB21RX72Q0 RyPjwvdGFibGU+PGRpdiB flXvjAK1pBdJk e1sro8BbHKurO2HhJSDeQ DjxPam4BDIrMDA0fQN9aQ 1hFFHvUDyac2B7jSK9X6J lkgHuge4de4vi IMUjAXdvW04fcCEfb4O9G EMkiAX6COVkuQmkIjJbrR 93Oyc+IHJbkNdhw0VcOsw bn0avd3pnnWj1 NgQeMMNjvqDikEloPWS2x 1EoYc16M38oMVybEZYrWE RnAPMjVSUveBlhcx3wwE1 wIi8+PGNvbCB3 cXP1oX6dYLKbUvY0EWczN 919ZnIabUOhCxnbl0jqq8 obpTo7PjKwQBUepoEdaFh hZUR3h7PbBu89 H15eMAmtXHMnYDVfZFKlT PLslHxejg8zjT1zSy2+PC 6yx3gktp57cX22sKI+PHR mEVD2sYdkNRpu SXIbbW6xNGhcWvY3OAGgX pOztI33qNLuZQybYq2clC tsgIksUO5lLGDehwgxr51 1PyQeh6rwKVOr wHTiWRphRJQ5T23rq2C5W QRsRFTiLJE1dXF8jS0nsR lnbjogbGVmdDsgdmVydGl qDTflWPsgM789 IHRvcDsnPlBhdGllbnQgT nGtKQs3E5NnMsn4POXejZ xnDY6oxVDpEEldTa4xyJy uxAhiLS9jUHFf yyyfp108YfSmu4stUUWxs PLyYPjvHXO5Z58ov4V2FN UvAGRrYBZ0xIJ9jH8pkAn nbjogbGVmdDsg myJrhQbfLPgrBWjjR551E HRvcDsnPkJpcnRoIERhdG X6YT50YV43pIVcg8D3cJS 4O1LzZDTgivjn zulroEA1PNChPKMqoK85F x7sfAfiQi2lVLFdIJD9YY RswQBzP0FioU2zAkKhUHM xOCIlL6HanKYc ODagD118PQqbSfB9HZVya hQvK8ScFXVksMafOqF4k7 S6Jy0CK5Z7UP80JS23mGW dq6W5iLQ3W7Em IOTznkejnmizeCQ1KIWkZ UVwlW97Hd9nzHcvOr1kHW IyEAT7WUJqyUYcA6AlqG7 yOiAjMDAwMDAw G9DvrMHqJUnhD881ZNycT dC3SXWuamLgE4MvNHMfrO baOkX7i6X1De1WKBj6WO2 6TG63oUHsx0F7 sCU9A2UmHODfxvtvbxetd KG0UETrXZVpfO70Co0vyY czOy2jZOVkTXQ1ZXBzsXR yE4NnwA1oYiWd ZFLlISHqG0UmeHWwXZibK 858GYczKfK6KLRqwfMmX2 HqMHIsuBprVwU6f3T9Hs9 EKAJvWX29WTR4 xCC6KD85LZ20M7EqSsgsn GFibGU+PHRhYmxlIHdpZH RoPScxMDAlJyBzdHlsZT0 aFp1bTNZgHBBy iAuhdXEtWnHci3xeSZUgX TezIJ3qdLyeT2BdsOJ0AO Qzt4r4Iv27N70vC3TsjWH +FTLjkCG1wTJ0 nG3pUhNuPdG5RXipO230G yDdoJJnRcmhi6ihs8clgK u3BlP1PWVpgsMhyLspAWB 5r4PgPk56Q31k IHdpZHRoPSIxNSUiIHZhb Plsio9xyI1gFb4+PGNvbC O6bWO3fD7bJkMjRcB9SKi fY277OnRcbHLd Dbqfk3tdf4ogsSz6CoChV JXljzImtZhsQCP0t8FpSj 12U3LnqVjcc6PuCgq9af9 7xPYpq7R3dWE6 T3MtLJMbngwfbISrdWczC H5kHXSufsqcJJZwnL8gGF XrF4w4NgOfTaD9HPsrN6Z urrB1DPIijHFc AItdWNO3N39wv9Z7KHWtL ORdPHE0aNJ0aR0joEwbsb ogbGVmdDsgdmVydGljYWw sZLdtN238CMQt oMvrCSAefH3gPKLnvNMop NvkWM9rPQGxugjzPhfCYJ 1BTiwgRUxJWkFCRVRIIEF OTjwvdGQ+PHRk IID9vEhsGMilNCEcrO0mK RKlF0o6FjRbNtK5COukJ0 IvYEUgxgjxOq54pM7tNiY wMjD0HYylW5Mi qtD8SEWamLKpVSeqAUU8L 65qq1W8HYSvUSHuVNK2mJ M1mH2mrBuknrhdfCGaqVr gdmVydGljYWwt AHhtX594VAZpaUqzKvF9O jAiOfO0WyD2U6ZaArs1FJ AkeDpyIP8njXXhZZaxRx2 nuZdadOkeJE6a WCMazlwcSPDtqM5xTCQcv SRmwGttLO9uLTAmwcffj2 70FgLmKZD4FFAmfOTtT7L deF2eRrZjKMMq CJXkN2HwbVPhPKazC926T CqiMtW4STAghyAvC9ZeQR AxmAbsWzW3o6E4Cp47VEO ZZWFyczwvdGQ+ VWDiFNO7wKvzRQddSRNyl U0dGOItI0t2VzVqDeU2ED ldQ1JsDTVsiszcVk67eZ8 pNvMiIyK9ATzq E9NecdA5PCRrzBVdPTshC VX3J01tx9E6XQVjXNSuYV Q1pYN9pH5arVbgxzgkvTA mdDsgdmVydGlj TVuxGHnuN698RVShwDvaY kZFTUFMRTwvdGQ+PHRkIH S1pBjyBWuzLAObnT3xKAE xI4h3WyFwYiU3 SMqrO5AjMKDorniiOj15z V5qIpZyAyF5YEnhO7Ymzi J0SQUhiDDvQEdrVNF0T64 ep5Z5LRAnCJSv SYU2xRA3fZ3vaZvhjnyxg GVmdDsgdmVydGljYWwtYW fcX780IJHgwZsnMcOysJB RcGTrFAF2BB66 JF04T1TxAkmsxIIpbLO+P HRhYmxlIHdpZHRoPScxMD TeDsVdaZzqYY2iSy7zMJF yLWNvbGxhcHNl WlZlt0iqVJSjUTlaMJ6vz MueL7ZdbUD8WQLnc4q6Ik 04Z34yE5FcoFY+PGNvbCB 5qYI7lJ0uKiMw HrV4QNemV515RfAaaADeH lvtv6dxd4bpnKz0ZkNbUP SkqvZjmDqwVKI3p4IfYj4 5M09dNAyoWRAl AUXwBBVvNZBjlXlzrt7vt G9wIi8+UEWcuYR2xUK6gE 7iFyNbOfN9XWwiP597ThD bnVUiCrqsG68u V2FvlVE+QSKxVlb0KJNoj NzvTG1bbZHpDCpaLa0nQL Z0ByPlYxPkDJykC7UcREM pbmctcmlnaHQ6 ZXAgJDKowF15Ov6zhRlsJ s8dOSOwDBW2WXWqiPWxR0 PfcA8tTiXqBLCdMWQiY5U eiPXzIAokT948 OQriAjN1FJGpwtBsY4NgW SNlsVaxCqN3f6C3Tf5UiI cotRNbGM6oEkGuYNk1C0Q hZht7FGYqpPww UB3hbUXsUAidHm8zpCitr IdoUB2iGPIbxqptt051Mx Nub0rpAXWnmNNbUUmtDBV 7R67nz4I2MSKj NJRtYFV6mBR2uB7pqFpnm jogbGVmdDsgdmVydGljYW otQRgqX131IEMjjDqkXqS ZVrw7V7BhIcy3 GBCrxAplBJ9siBWeOQqrY z7ahXtaxRocDL8xCLLxgw uki863NhEdl8imMNXksAJ yGLnxTHQ8O31h d6U1IPGpBFKrZHS4lPY2e D5exRvgiuljaJKbhPovnu KtnQsfAIqvLXtwG219DHF myZpoBt7AYxh5 H5KuGms9VGSnrLzjWA7mi MCmARqfNp4ftJuehTuzJK 8tNXAjnlxso539SoYfl7y kIDEwcHQgVGlt UBX1J12lz3Q6TGClUOQtB UZ2aQE9jH5qpSdnqxivqF VmdDsgdmVydGljYWwtYWx jF961JTYbdLae PlBheWVyOjwvdGQ+PC90c z88P3AdVaiwCim6ASRbAP Z7nOF7wX0lRCFxHAobj0E 2kYA7O4XpqvQm ci1 (more content not included)... [facility] Coding Queryon 08-27-2021 Coding Query Documentation Required Dr Oglesby, Please review your OP Note [...] [facility] Consent Formson 08-27-2021 Consent Forms [id number] [facility] Telemetry Stripson 2 Telemetry Strips [id number] [facility] Anesthesia Noteon 08-26-2021 Anesthesia Note Patient: IKE JONES Age: 50 years Sex: FEMALE : 1970 Associated Diagnoses: None Author: Shanon Cadet MD Postoperative Information Anesthetic utilized: General. Assessment Anesthetic outcome No anesthetic complications noted. Plan Transfer/ Discharge: Patient can be discharged from PACU when criteria met. Condition good. [Electronically Signed on: 08/26/2021 14:58 EDT] Shanon Cadet MD [Verified on: 08/26/2021 14:58 EDT] Shanon Cadet MD [facility] Anesthesia Note Patient: IKE JONES Age: 50 years Sex: FEMALE : 1970 Associated Diagnoses: None Author: Shanon Cadet MD Preoperative Information Anesthesia history: Family [...] = 1 tab(s), PO, Daily Potassium Chloride (Acw-Nfvu-Pzo 10) 10 mEq oral tablet, extended release 10 mEq = 1 tab(s), PO, Daily traZODone 50 mg oral tablet 50 mg = 1 tab(s), PO, Once a day (at bedtime) Problem list (past medical history): All Problems Cardiac dysrhythmia / SNOMED CT 0022766870 / Confirmed HTN (hypertension) / SNOMED CT 0179710353 / Confirmed Histories Family History: No family history items have been selected or recorded. Procedure history: Arthroscopy of knee ([id number]) on 01/21/2021 at 50 Years. Comments: 01/21/2021 8:41 Gino Pickering RN right Abdominal hysterectomy ([id number]). Arthroscopy of knee ([id number]). Lipoma ([id number]). Comments: 01/04/2021 11:19 OSKAR Becker RN, Milana Eason excision History of tonsillectomy (8408070688). ACL - Anterior cruciate ligament rupture (478146589). Comments: 08/12/2021 13:15 Gino Heller RN repair with cadavor Social History [...] Oriented. Review / Management Laboratory Results Plan [place] [employer]#( A) physical status classification: Class II. Anesthetic Preoperative Plan Anesthesia: General. . Anesthetic plan, risks, benefits, and alternatives discussed with the patient and/or family. Patient verbalized understanding. Informed consent was given. Anesthetic technique: General anesthesia, Patient presented with diastolic HTN; this was also noted on her PST chart. Had a lengthy discussion with her regarding this. Her primary care ([facility] [employer] [facility]) recently changed her from Toprol to Coreg... Patient has reported no changes and has noted her diastolics have been above 100 for months . We discussed treating her with some labetolol here with the hope of moving forward today with her surgery. We also discussed putting a better skilled nursing plan in place regarding her hypertension. Her and her both seemed to express understanding. . [Electronically Signed on: 08/26/2021 13:29 EDT] Shanon Cadet MD [Verified on: 08/26/2021 13:29 EDT] Shanon Cadet MD [facility] Coding Summaryon 08-26-2021 Coding Summary HTMLBase 64 BefhycujFBr5nTb+PGhlY WQ+RS9MAYKhR10tkIWesC 4ED3nBXV0FLJIPIKQFKB1 HBV8ybSL4IJeoK3OhhvJy DksfpCPxEO80JQg8XLH1q CicKXdspY0pqLHbQ6i8Un CnRA18wQ49EKnlXSSgXwJ 3LjZpbjsgbWFy B3isGiBabTNzVpr+PHRhY mxlIHdpZHRoPScxMDAlJy AafLcsSZ2gWb4fOUClRWH vbGxhcHNlOiBj z2odMRMfKYysQE7jiUtlZ 1ZuiSZ3ZDJpa8g2Tg24cW I+GAQjTUQ1wVuvWTffz74 4KwWkz1sjFNY6 fRBhRVapMMR9I16lo1Z1R RQxWGFeIAF1hKO2qV0gkV rsvxjmE5SzzWRqVkZ7KQO 3mJExkV8kxNsz steybU8oDei+Z37AYH7XU RHADP4EUuf9M7LyQbppkX I+MR18MYLjEX58iIZvpMJ wt3yexJs6PqNy TSKuKZK1nSraWFvjr3BgK EPgE01klHVgf5N7IHIuoH nqkRTyKaFwrPQ1pA7yZUk sggbgp5osutla Jradf0nssx27hY34M41wH UknZTLdLZC2ETGjSICawI hnre5jlK6bUy5+VMoaj1s xi2mybXa5WiJg IBAmjjIjxNjvIGS3h2NoW q35W0DvbSmaz2PnRke6am 14kXQbm9S6zXC3EEkzJJP cdZ6hNYffXsE1 GBJyIxMpcX35nUBjGWdmA k5smGpfuAriGR2rSLHchw mpOOHrvT5dHXRfrXTktSy xFG3pCPIitvfe s662JtUnYBU8HXLxsVBbJ 8TuxK8wIhCcGATfWAPoX6 DdiBBjGFxyO012OIitOuZ 7BEGnyfMiY7Nj EDGwwNczSmF9d7X3Yg9Jl 8AqlsiaGIR3JRioCFP1Xp E6QvJiXeD3M4OjHoj3PFN bjQwpHT0tU8Qo PXMzsjltyqgblNF8PKJpE ARfcA69eIMkPOkbAf9bu5 M6z452EXVqKPRfzG39Uj9 udDogMTBwdCBU kG2jeolrb4ulnpqzWkBaP MGrHLj9XZl8CGYuxVrnQw HdFJB3HvM1GXQ5jCWjuK7 uzJuphrtalV7j Oyc+H17deK4fHJX4DES0b uhlWFEgdtXhVD34NL49C6 RyPjwvdGFibGU+PGRpdiB fgEyeCR5vRzUu n6nsf4QsKZeiO9TmXSGdC IdpCqd6PKAlTWS6kTN7tZ 1kEPJbSLrxu6L6vEH5I9V mzeBuzc8ki9fz KPSgOOmvH93txDMrs4Y3P SFedLN4OJJykCikYyUudS 93Oyc+KALzaHtuo9AtFhx rd1fjl4kixLd5 KdGzGTJwwrQjbIriIMB4o 2YtYd82U73eSHnkMOPbCR GmAEVoPPBsaZimaq7baT7 wIi8+PGNvbCB3 aML2pY6gQKMnSoR5DErqO 574RrIqrRVxUhmax4lzd6 mtjEg9QrWvAZAjmbCmaZe fWHS6t0ZpZm73 P72qFZovMEFvYQZoEADjG EJznDjrff9ocU0kPt9+PC 2au4yhye01gQ32mHM+PHR iVZM4lMgtUTft FXRneG6bLNzaKtQ4NOQlF oNloS84aHFgNSgdBm2mlP gjeIgyQX4uQKPaxmwcm08 5WaQvx8jqRTNa oWOyFEibUSE4G04ol3Y4D IQzPPNhJKG4oPC9eQ2moD lnbjogbGVmdDsgdmVydGl aYUzaONncP857 IHRvcDsnPlBhdGllbnQgT iRkPAk9Y1DnYky5KMCefR ncWC9jpDOyBUktXv0ljPj uvMouIE0wRRVa xeloc005DqAgy9uzOISqz SJlONdcABX1Y24co7S8LD VnDWSzHVB3kVT4fM9roYv nbjogbGVmdDsg qnIcmMljTGqgXAryK538S HRvcDsnPkJpcnRoIERhdG F7PB63AF61nINsx2D4hGQ 8T0SkCRKqlbsa hejlpJS0JCWgZLOefT05I c5kxRqmAw8gNCFlUSI9TX SyaSMlA6KoeZ3nKxLgWPD eWKCbE2PytEHc LElqI686GFjoEjO6BZKdg gPpN6EdWXEkrJfxQuR5y2 M0Ot4CT2J3PM67YV99gQM in2I1qRL2L1Mk HEEwgyelsvocjNP5REOwU LOwyN91Zv9umNzeSm2uGK JeMGJ7EKIhrMMvH5HksI8 yOiAjMDAwMDAw S8GceMXmXGtcV575YBwgB pH7UETewaGvK3VdVTKzeF ghJfI8p9Q8Zr4MNXy7GV5 6CV26mQVqi9H1 nIL8U3WvQGUbgqwxfmuqx OW6GXIjLZGffJ08Xs5lrD kdLm3dIZEhMUY2RNRsePU nY7BvkO6qYbIm MUNdIBKeF6MboCLlKPjyT 496CMyfGqL5TJOvetPnE1 YkUKFuuJayHmU1m1C1Wg2 GKMPjKU82OCU0 aCV5OR22ZI33Y7WyRbcls GFibGU+PHRhYmxlIHdpZH RoPScxMDAlJyBzdHlsZT0 nVc7yDCNyPZCg nKrrsANaUgUth8oqPEQmT RfyXP4nyMrnI9JvkRR8DA Lqk9b4Jx43J67kB9PgkZE +UETeeQV3mTT8 cX7iTcZhJgR4URwbT288R dSnmKVvGuimm1zby3lolF a1BpF1JIFwbbKhvIbyZWK 7c6KbWa99W97y IHdpZHRoPSIxNSUiIHZhb Euxnq9idL4kVa1+PGNvbC K1mMB4bV2lWnVeNtI2BLe fV085ZuDvfQUk Nkayx9aia1npuYy1HcZjW BXrltCnpCbbUIA9j6FeZk 43A3YwhEdef4QmIdo7hp0 2uUMpm9W8gFG2 T6GqSJWoebsoeBUxmJujA C1nTXFbdyozRTFlrK8nPJ BpT7m4XjJrHbA1NOcrA3U cioB9REAupVQw WBerEYW7A82et4P0DOHnL BXtLDR2fFV4qD5jaPpjrg ogbGVmdDsgdmVydGljYWw nHOwgR868XGMp eRaoXZCneF3wWBAhnVXtr TuyYI3bVTYfcyhtXbrMAI 1BTiwgRUxJWkFCRVRIIEF OTjwvdGQ+PHRk MHC5fBwnOVqbAEMyrM2kQ DFnT9z9QcBgDoG4LNdjF9 CuHVUqzgleZe98dL5mBeS yNeS5EQfcR9Pc amH1LGUyrTSmYSsoEKU5V 68ec0X4TBYvVLSbTVA1hV K6gP2nkKedejqbzVQuvIu gdmVydGljYWwt WZxzW318VNUkoPfiMhA9V aFqHdY6EeT0N9GmVqi3HY WnqBonQZ1zcZQgSCzeMn0 vuYvdzZvcGT0g HSDdqlffZFRjrL5xAAZfi LJcwUdoTR0tVLQezcjhz9 26AwTkGIE0UDBijDGuI8A oyT5aQxIwLSVh GCQyP2TscQJhMJfxQ825L QvgZgU6UMDzneZjL7DcRP LqyEpnOtU5h5G9Fg10KQL ZZWFyczwvdGQ+ DTDxUKI2gZieAVvbCRUqp W5cDFGzT8x2SnSdTnB8GU ybS9VoSEUjotnnIj51hH0 nXwQeBfK1QRhh O1RbzsU2KJMouDZuJVybI KA0T29eb6X7AYZzKOMzMV B5nLM4iH3qkXhfhsvyhWX mdDsgdmVydGlj OHcjWPviQ296YUEaiSyzS kZFTUFMRTwvdGQ+PHRkIH T6sShaRVedMBOffQ8jZXH cG8f1RoNsBfZ8 EEjmN2EwDGGxqcmyFu97l L3wIpLtAuR4YWvgO4Wepn P4BZQjgWNtVUogKTW9T93 gm2R8VNUcRYZg URN1kZL0eK2xhCdutjswl GVmdDsgdmVydGljYWwtYW rkJ903SNIysLpkHf9OVF2 5ZW97F1PlTnag dGFibGU+PHRhYmxlIHdpZ HRoPScxMDAlJyBzdHlsZT 0fJi2dXOTsNKTidGexqVX tGhUsf5uhCCRc ULitXF4cvZccF3JvySN2B WKny4l4Vj50I71iG0GojY A+DXUmsOW0lYT0mN4cAwF uJgS2VCmsP216 SeUhoZNgExjlt6owh7wbl Ff1GuGyAJTdkwZdbOguEV Y4u5FfHy84X33nAEtiZYX oPSIyMCUiIHZh tAvjfz2vnC5vTv4+PGNvb EW1oUN2wD5zNqXmIcF1DG glT780ZePjyFNxRiwlT88 aV8VfbQZ+PHRy Fzu2CZWbpPdpLM6skXDdM AwaKe1eFML7RmBjFdTlUI lbB1WuWBKmtdphaisznNA 0CGDfWXIhiZ60 Yq3gwDwkJk9cBKJiZSY6C BMrzIIxJ3LtsP4iKoKyFT CvNQPrL1LlpXWyRWknT94 8ZAepTdL2AUCe xfGsF8MiAWQqgKatXdF7v 2E6Id6AhSvwvPCdIL7fZj EsPHa8N2PyJxr5GQSfiOm rCC1pkSXtFRtb Ac8ppXloyKrmSH8xRTNeg tclk444KvBlm3jjRBEkxH ZmLWbdGIK1O52we4H4PKD wHMRdZOM2gVM5 uG5yaTdasdhjdOGxuExjf oYzhTrqENljHDqpQ887CW MsoJdiOtAXUim1N6RuByf 7SBSryDywJX5j fCRfRTecFm1wnRrkkXwqT U9zBLWhyzvfq999QxHlv4 dhBHEcyVRqMRpdRWS1X17 yi0P2FWRxJSFf KBG6zTC3jN2soKmcjxzmo GVmdDsgdmVydGljYWwtYW vpY667MZKejRxgYz9WLhl 3Q7XqCpj1UHFh vEwaZL4ayMCjUKwbBa4wy MvzaUciVZ3tCDZtqbqtt7 50BqFav7viZNRasSPgMCn oDJE5U22qi1B8 EMSxWDIaOKN2sAX1rB3qo GlnbjogbGVmdDsgdmVydG hxPNwfIUwrA135BIUhqBm nPlBheWVyOjwv dGQ+DW13ck03A9MfObqxD qr7KLBhNUP5vAR5hG5fHJ LjPVkpg3K3tIM4W7QeiiB ifx1kh5hyNILo ZTo (more content not included)... Normal [facility] Inpatient Patient Summaryon 08-26-2021 Inpatient Patient Summary [address] [address] Patient Discharge Instructions Name: LAKIA JONESROSS RIVERA : 1970 Patient Address: [address] [place] [address] Primary Care Provider: Name: RANDY CALLE After you are discharged if you find you have any questions, please, call [phone] ext [phone] to speak to a nurse. [...] alcohol and/or drug addiction problems; contact the [facility] 22/09 Crisis Hotline -Text 4HCPM to 941784. If you received any narcotics, sedation, or [...] or sign any legal documents [facility] would like to thank you for [...] Continue That Have Not Changed Other Medications acetaminophen-hydroco done (!-Union 5 mg-325 mg oral tablet) 1 tab(s) Oral Every 6 hours as needed as needed for pain. carvedilol (carvedilol 12.5 mg oral tablet) 1 tab(s) Oral 2 times a day. cyclobenzaprine (cyclobenzaprine 10 mg oral tablet) 1 tab(s) Oral At bedtime as needed for spasm. hydroCHLOROthiazide (hydroCHLOROthiazide 25 mg oral tablet) 1 tab(s) Oral every day. potassium chloride (Potassium Chloride (Xir-Phzr-Pju 10) 10 mEq oral tablet, extended release) [...] list that you can keep with you. acetaminophen-hydroco done (!-Union 5 mg-325 mg oral tablet) 1 tab(s) [...] Oral every day. potassium chloride (Potassium Chloride (Ned-Ezhk-Crd 10) 10 mEq oral tablet, extended release) [...] (more content not included)... Normal [facility] MAGR Intraoperative Recordon 08-26-2021 MAGR Intraoperative Record MAGR Intra-Op Record Summary Primary Physician: Hua Oglesby DO Finalized Date/Time: 08/26/21 15:08:30 Pt. Name: REZA JONESSD Garduno/Sex: 1970 FEMALE Med Rec #: [id number] Physician: Hua Oglesby DO Financial #: [id number] Pt. Type: D Room/Bed: / Admit/Disch: 08/26/21 [...] Role Performed Surgeon - Primary Anesthesiologist of Hotel Front Desk Clerk Record Time In 08/26/21 14:02:00 08/26/21 14:02:00 08/26/21 14:02:00 Time Out 08/26/21 14:56:00 08/26/21 14:56:00 08/26/21 14:56:00 Procedure Arthroscopy Knee(Left) Arthroscopy Knee(Left) Arthroscopy Knee(Left) Last Modified By: Jeannine Eid RN, Erica RN Baumer, Erica RN 08/26/21 14:54:01 08/26/21 14:54:01 08/26/21 14:54:01 Entry 4 Entry 5 Entry 6 Case Attendee Dorothy Archer RN, CST, Shanique Brown CST, CST Role Performed Hotel Front Desk Clerk Print Machine Operator Scrub Personnel Time In 08/26/21 14:02:00 08/26/21 [...] By Jeannine Eid (more content not included)... [facility] MAGR PACU Record Summary Primary Physician: Hua Oglesby DO Finalized Date/Time: 08/26/21 15:37:09 Pt. Name: IKE JONES/Sex: 1970 FEMALE Med Rec #: [id number] Physician: Hua Oglesby DO Financial #: [id number] Pt. Type: D Room/Bed: / Admit/Disch: 08/26/21 11:01:00 - Institution: PACU Case Times MAGR Entry 1 In PACU I 08/26/21 14:56:00 Discharge from PACU 08/26/21 15:30:00 I Last Modified By: Elvira Navarro RN 08/26/21 15:37:04 Finalized By: Elvira Navarro RN Document Signatures Signed By: Elvira Navarro RN 08/26/21 15:37 [facility] MAGR Postoperative Recordon 08-26-2021 MAGR Postoperative Record MAGR Phase II Record Summary Primary Physician: Hua Oglesby DO Finalized Date/Time: 08/26/21 16:25:07 Pt. Name: IKE JONES D.O.B./Sex: 1970 FEMALE Med Rec #: [id number] Physician: Hua Oglesby DO Financial #: [id number] Pt. Type: D Room/Bed: / Admit/Disch: 08/26/21 [...] Signed By: Elvira Navarro RN 08/26/21 16:25 [facility] MAGR Preoperative Recordon 0 08-26-2021 MAGR Preoperative Record MAGR Pre-Op Rec ord Summary Primary Physician: Hua Oglesby DO Finalized Date/Time: 08/26/21 15:18:23 Pt. Name: IKE JONES/Sex: 1970 FEMALE Med Rec #: [id number] Physician: Hua Oglesby DO Financial #: [id number] Pt. Type: D Room/Bed: / Admit/Disch: 08/26/21 [...] instructions reviewed with pt and incl anesth restrictions-verbaliz ed understanding. Finalized By: Elvira Navarro RN Document Signatures Signed By: Elvira Navarro RN 08/26/21 15:18 Normal [facility] Operative Report - Surgeon/P aster 08-26-2021 [...] on: 08/30/2021 13:39 EDT] Hua Oglesby DO [facility] Patient Handouton 08-26-2021 Patient Handout POST [...] done to rule of a DVT. Normal [facility] Progress Note - Nurseon 08-01 Progress Note - Nurse Pre-op call done, instructed to arrive @ 1100 on 08-26-21, NPO after midnight, and need for ride to and from hospital-verbalized understanding. [Electronically Signed on: 08/23/2021 13:36 EDT] Gino Painter RN [Verified on: 08/23/2021 13:36 EDT] Gino Painter RN [facility] 2018 Novel Coronavirus (CoVI D-19), KYLE LCon 08-22-2021 SARS-CoV-2 (COVID-19) RNA KYLE+probe Ql (Unsp spec) Not detected Invalid Interpretation Code Not Detected [facility] Comment on above: Order Comment: [id number] [facility]# [phone] Result Comment: This nucleic acid amplification test was developed and its performance characteristics determined by [employer]. Nucleic acid amplification tests include RT- PCR [...] result in this assay. Performed At: [address] [id number] José Manuel Chery PhD Ph:[phone] Performed By: #### 6 [id number] ####[place] [address] Coding Summaryon 08-15-2021 Coding Summary [employer] 64 UjfrbrlpILv9cCq+PGhlY WQ+LO1OVOQjM75mwLZzzK 0NT4dOQY4OWZUWLXPJPO4 TAH9bzQJ7YJksX6PansDr CicstJVfHM81VEh6UCQ6v YfvBCdltI6bsOBbQ4q4Vi YwRK21hA82NEzcNDSiTnO 3LjZpbjsgbWFy X2czKwDxyKAkAkf+PHRhY mxlIHdpZHRoPScxMDAlJy BgpTcsLA8uOh1nHRQgBUI vbGxhcHNlOiBj w7rdYKOpFJmwCE9tgSjnF 9TaoTA0SXQlt5q2Nk41dZ I+SDSvMZF4fSvkFEguk59 8SkKpx8pmMYG2 vPMzJJwuZAM1A73qo8X4G AEsWSErFXR2wGA6kN4irS itzuckB0MmmJIjUaJ8GBB 0aCOwfC5bcMat givwoG7aAhz+K18UGF3OK JSCDS3RBye9E1CnSohorT I+FB69WLJxZQ22wJItvRZ tw1ttlVp8TbJd ZTEzSMR7sQneJNtzo0GcJ GFxX72gnATpo2V3HCLnlD qrnJFaJzOxiSG9cV3uLVi ccdfyw5hgfcfs Vucwe4itez69iZ42S83mT JboQDNuQQL4DRQyJKDyvK snak5waA6hMc2+NJtpd8f yn5zxmLo3QpWx IPYcrdDoxAkbQMT0r9IiR y27X7QraLqzr2NtJha3cr 41rMHli0J0hCP3OHfzLOE brV8iUZrvGmH9 PCZfTxKibS00fJJlIPtqZ w6csNnffKfnQT5tKNKjqe aaHZZkxP7mWYUfjRNbcLv aET0zYYHekelv s254QuWuXAT3QTPlmBTfK 7JobE9pFaVmGWJiRLHiX9 AjuZYuIFvhX492AWyqEeP 6AGElxnUdI0Bt HPQkvJzpAoW7p2L4Uf7Bx 8CceaxrVBM0LJgtLQG1Ue X3ZfYqIwN2Q3SpIvl1FPP rmLuwZP0zG8Iy MIEugeafmlvfaMI7ZVWsF RQqyR38cJJiEErkVj8bg5 Q4x395SGLbIFBplP38Or7 udDogMTBwdCBU hE1evalgg8uqaukrZpKmD OIxBRl9UDh1FDEriAtxYw HfPQP5OpT7QIX1kMOniZ5 wuDqpbtokzK9m Oyc+I77pxV4hYBC4IYQ7j ohlFUWvdpUtBW36DI19T1 RyPjwvdGFibGU+PGRpdiB zfQqsNW5aSaZb o6obz3NkPGhfC3BeBSVwE EynDwy1OSRlRHO1wBI7sZ 8nHWFuBPfsb1L7dOE7I5J bhfCsih0fe9vp UFOeNTrjV03eyFWhw4A9F FMraES5KFAiwBbtHqWjoZ 93Oyc+LEIsyVmqv9KkCwn aj4ltc9binAi3 DjTxKVZhkkDbcOlfOZP3x 5XdOa16I96xYLnbALVqGJ EkNSKoZJAfhBsezd5liO6 wIi8+PGNvbCB3 dEX0rH1mJFZxGbM5QVxuS 417UuSxlWXtNutdj9lgp0 mwtWt7LyRbLEWktsYafEx iJVX5w3LuPu73 S66lZCpxILGjEQUwHIHbQ NCisScfro1ucY5zKq0+PC 5vo6aemc89xV74zPH+PHR uZYK4iVfyGPke HHNxnZ8zQVybTcB0LGTiB aWzbG77vLLsQDchKg5jyH puhPscFC6aEPYcmnwjp32 3CjRvj9gjZQIs qVGeLNxmKUV1D71td7L3X CRzQNVyZBH6gFJ9sS6iuW lnbjogbGVmdDsgdmVydGl mTBpsRYqsF878 IHRvcDsnPlBhdGllbnQgT yLuWMi0O8HuDyf0KPAtmP gcVE6vaISqIMedRn1yaCk emMyzKQ3vFPZs nqjup495CdKmy5aoMIFfd JUbPHcoNXR7P95gu5H9HB ZpLQGbJBO2jTI9cA3elPv nbjogbGVmdDsg akTrlVvsQWneGGazK980O HRvcDsnPkJpcnRoIERhdG Y3LE54NA28hSMvy4K1xDD 4V6QhRDHxdvfg enbukHF1OGUiPNLvhN78W q4rzMqeZw1lFWZkCAX8NL XcnVDoW8ZgwH7bDfEsKYL yVCNrH1LsoTHp VEzdO102UUocXnS0MWJjk dZcA0PwFGZfbRfuFdZ4g9 B3Vs4FS3I8LU35KH12aVI fd9U6mAR9T8Ll WFTxcciizwlrmUV4WEZpZ ARobE24Xq3zpTgjSi3dWA JuRJW9HNTkhXKaH7RrsD9 yOiAjMDAwMDAw R9XpbCToJXgxW897BRvoF xR7VVLojsQpI8XiWPUowT tbCjK2i3C4Xd5VCQq9JL0 5HJ63eWTcu4R3 pQR9W8KzGXJggqbmlzuih JV3HWBsGTPkjC37Xn6oyS wvTg4uZXHmRQH6VYHokBG pQ6PwqH5aRlTn WCQtETWiS8RcrITcKBhuW 445SMasXvA2ZFQvnjMrX8 KjRHGqkPiwZgD3z7V5Xv0 WZNGlTN78BKQ7 pDM2DX65XT21Z9UjTcmjf GFibGU+PHRhYmxlIHdpZH RoPScxMDAlJyBzdHlsZT0 mXz5mXPVbQAZz cEhxbZEoUaAgv9xxOJPoZ PxzGZ5osYtmC9HlcLW3GJ Dkj1a0Nm73L23bG1WemOK +DCDggUI7gKL2 kP3vYyUvNbC8CZbeC060Q gQedGVeLnihv1egi6rbpB f0PbG2LRVuifIvbHwcTCZ 8c3TbBo79B95l IHdpZHRoPSIxNSUiIHZhb Hkjfg1cnC1kRa5+PGNvbC I7sBF0iG5wCqGzNrC9PWc iM352PfMszWGi Puxqu0rcn5mhvOc0EyIeO MDmsmKyfTflXBV6p0TrBr 70G6NbeOpdp2XrPvq3fg9 4wATpw2R1jGA7 D9JaICWjqgtwmTLanNahS G3wPYPluurwVODirY3cOT QdU3x8OuSnUhD9BAygU8G azjY0XCLnyFIc VJqjLBD8K65ob2L7JMNkK NEqLLD4oND8lM4hhVtfmz ogbGVmdDsgdmVydGljYWw vJMbyN987XVMp oMizMRVmjF3iONAsjJKdx GoeIO1dNISatltlZqlFYJ 1BTiwgRUxJWkFCRVRIIEF OTjwvdGQ+PHRk GAC7oGvzFOxuWJEwiL3hN WWyS3q8IeAxWvX3THguS6 KoNRIlgirzCd09eX1rZuF hWnS9XEcvP8Xc biY0PBDqeNUcYAvtXYO7V 34zd4Y8PUJzXWNmGWT6xX V4pZ5avOiukbcqxJAlnKv gdmVydGljYWwt CUskS611GOWonRhnSvM5L pDbCaU7XzU3Q4ZtNnq8DV QpmKazKR8stFZvFYctDt9 pwBqqjMfeIU3z HJZwrnjnZIRnzX7vPVJvi KRnzNnbNM2fFEXamegvq9 54JkLeVHG1GZLzmVTkB0M slH8tFzIxYRNb PQOtG0AftHDeFOdnW652X SmyOiB7TLAkjpUxH1OmFB ByxFsvKqZ8c9A8Za27IBK ZZWFyczwvdGQ+ RNDaYPF1sVlaSZtiSSQwz U9sKUYzO9p5AeVzQqC4RM ucA8QuQETsfpjfYl98iH7 lTzOsAsY8VGpx P5YsdhG6QZCmcHXdFHioW JE6B42wc6T8LRWuXSRhCM I6tPD3rS4rcFljuolsjYL mdDsgdmVydGlj MZtjNVbzO499NLBytJbrJ kZFTUFMRTwvdGQ+PHRkIH C9cTeqLIkpQWRjhP9aZCD fB9z9CtSdTwR8 LHxyX2EcGHCwxarkMv61t A6rYtCdNiP4CKxvH2Fcyy P2IOWneFMaXPvqRZY9M78 fh1Q4WGYqAPHr UYZ0oCX7lF1jjXtihbsjy GVmdDsgdmVydGljYWwtYW feY994MJIztQddJf0GCH0 0EE95P5MdMkph dGFibGU+PHRhYmxlIHdpZ HRoPScxMDAlJyBzdHlsZT 0rIt4xQCYvXVJukXfqnFJ jNoScz5ubYXAo DCzlJZ8alKyuI8KfyHC5O VZwg4n8Gh09Y75vT5WqzR A+NFCgcXV5uBS6yH6iWwT hKgS3ISvyL494 YbUhuJIpMkmks1twe6dgm Np6MtMsYJQzlyXroOmxUI N3e4QePu39Y31fXFebWMK oPSIyMCUiIHZh aLphwu7mcH0aNh1+PGNvb IK3yJN1iK2tLrSsGgB4JM fjL826CmMswGSzUsxeA39 fG2XtfDD+PHRy Heh9USZwqRrfFK7zzUSqH QwpAk7rHUC2DrCcJoEkWY riP6JeQDEwhspkoprlzNI 9FJLcSDVviY73 Ka3glUiqZn4aRFTnGDP4B VLenJEqP5BasJ1dErMfIL HnNIOxX2PcaVMuFOvdL79 4BNxuHhZ8OVVx ajWrZ9YjWVRdkThuSeG4r 4W9Ck5HuVaxlYEeWL1nFp BfLCq4Q6FzNlv4ZZSodWe pUO9hbWLbHLrx Ve6txLwwfLpoIQ2xLBGpn pxoo764ZkSvo1yzZJXcdS UePJeoHFE1X72is2Y0DAZ jRMLnLSW1tFD6 jY9drTewhvvrbAXfeQbjc vDlyAyzMMjrHNkxZ935BS GluWczIdFLMbz5I6MiCgy 0OCEriXeqXT7n tTEkRGnxNz8dcSzcpExsJ B0gFCDqnixcp817TbAxb5 udFXNwpMYvLDwbORQ3Q91 wo8M6IDLiVIVn JBB7lJA3sJ4kbRdfznogx GVmdDsgdmVydGljYWwtYW ptQ357RROzqRalLn7MZcu 5P4PlMkg5OHJr hYjhYM8lhGKgOAzuMu0sf EpbqXalEN0lPRZygwadj2 99QxGzz7qbIPLpxGHbYKe bCCI7U49hp8T7 QLQmJQUfBAQ0lDI7kR1im GlnbjogbGVmdDsgdmVydG yvTRhpXNjrX037ASZxvGi nPlBheWVyOjwv dGQ+HS01cu82W0WlSnomV da5IVCsUFW3hFK3eT7sIT GuIOpcz3M7pSF9U8NiiiK foi8qt7ciRCBj ZTo (more content not included)... Normal [facility] Inpatient Patient Summaryon 08-15-2021 [place] [address] Patient Discharge Instructions Name: NICCHENIKE : 1970 Patient Address: [address] [place] [address] Primary Care Provider: Name: RANDY CALLE After you are discharged if you find you have any questions, please, call [phone] ext [phone] to speak to a nurse. Discharge Diagnosis: Prescription Information: If you have been given a prescription for narcotics, seek immediate medical attention if you have any difficulty breathing or any sudden status changes such as confusion and sleepiness. If you or anyone you know is experiencing suicidal thoughts, mental health, alcohol and/or drug addiction problems; contact the [facility] 22/09 Crisis Hotline -Text 4HPDU oe 807228. If you received any narcotics, sedation, or [...] or sign any legal documents [facility] would like to thank you for allowing us to assist you with your healthcare needs. The following includes patient education materials and information regarding your injury/illness. IKE JONES has been given the following list of follow-up instructions, prescriptions, and patient education materials: Follow-up Instructions With: Address: When: MYESHA VINSON [address] [facility], [place] [address] Business (1) 09/03/2021 9:15 AM With: Address: When: [place] [address] Business (1) Medications During the course of your visit, your medication list was updated with the most current information. The details of those changes are reflected below: Medications That Were Updated - Follow Below Instructions Other Medications Updated: potassium chloride (Potassium Chloride (Bhh-Vrhb-Aud 10) 10 mEq oral tablet, extended release) [...] Oral every day. potassium chloride (Potassium Chloride (Ptc-Jezv-Gfd 10) 10 mEq oral tablet, extended release) [...] for Disease Control and Prevention October 2013 [facility] Patient Handouton 08-15-2021 Patient Handout [facility] Progress Note - Nurseon 07-31 Progress Note - Nurse Dr. Small review s PAT information and testing results. Ok to proceed, no orders given. [Electronically Signed on: 08/14/2021 12:02 EDT] Dary Gallegos RN [Verified on: 08/14/2021 12:02 EDT] Dary Gallegos RN [facility] .Auto Diff 08-12-2021 Auto Dawes % 8 % Normal 03-13 [facility] Comment on above: Performed By: #### 1 [id number], [id number], [id number] ####[facility] (DEFAULT)[address] [place] [address] Baso Abs# 0.1 x10 Normal 0.0-0.2 [facility] Comment on above: Performed By: #### 1 [id number], [id number], [id number] ####[facility] (DEFAULT)[address] [place] [address] Basophils/100 WBC (Bld) 0.9 % Normal 0.2-2.0 [facility] Comment on above: Performed By: #### 1 [id number], [id number], [id number] ####[facility] (DEFAULT)[address] [place] [address] Eos Abs# 0.3 x10 Normal 0.0-0.4 [facility] Comment on above: Performed By: #### 1 [id number], [id number], [id number] ####[facility] (DEFAULT)[address] [place] [address] Eosinophils/100 WBC (Bld) 3.9 % Normal 0.9-4.0 [facility] Comment on above: Performed By: #### 1 [id number], [id number], [id number] ####[facility] (DEFAULT)[address] [place] [address] Lymph Abs# 2.6 x10 Normal 1.3-2.9 [facility] Comment on above: Performed By: #### 1 [id number], [id number], [id number] ####[facility] (DEFAULT)[address] [place] [address] 91199 Lymphocytes/100 WBC (Bld) 30 % Normal 14-48 [facility] Comment on above: Performed By: #### 1 [id number], [id number], [id number] ####[facility] (DEFAULT)[address] [place] [address] Dawes Abs# 0.7 x10 Normal 0.0-0.8 [facility] Comment on above: Performed By: #### 1 [id number], [id number], [id number] ####[facility] (DEFAULT)[address] [place] [address] 81068 Neut Abs# 5.0 x10 Normal 1.5-9.2 [facility] Comment on above: Performed By: #### 1 [id number], [id number], [id number] ####[facility] (DEFAULT)[address] [place] [address] 96787 Neutrophils/100 WBC (Bld) 58 % Normal 44-88 [facility] Comment on above: Performed By: #### 1 [id number], [id number], [id number] ####[facility] (DEFAULT)[address] [place] [address] 40555 BMP Standardon 08-12-2021 eGFR Non AA >60 Invalid Interpretation Code [facility] Comment on above: Performed By: #### 1 [id number], [id number], [id number] ####[facility] (DEFAULT)[address] [place] [address] 98409 eGFR AA >60 Invalid Interpretation Code [facility] Comment on above: Result Comment: Yard [employer] medina Kidney disease could be indicated at eGFRs of less than 60 ml/min/1.73m2. Kidney Failure is indicated at less than 15 ml/min/1.73m2 Performed By: #### 1 [id number], [id number], [id number] ####[facility] (DEFAULT)[address] [place] [address]3539 Anion gap [Moles/Vol] 14.0 mmol/L Normal 5.0-19.0 [facility] Comment on above: Performed By: #### 1 [id number], [id number], [id number] ####[facility] (DEFAULT)[address] [place] [address] 71017 Calcium [Mass/Vol] 9.6 mg/dL Normal 8.9-10.3 [facility] Comment on above: Performed By: #### 1 [id number], 8598295, [id number] ####[facility] (DEFAULT)[address] [place] [address]347 Chloride [Moles/Vol] 102 mmol/L Normal 101-111 [facility] Comment on above: Performed By: #### 1 [id number], 7749541, [id number] ####[facility] (DEFAULT)[address] [place] [address] 96706 CO2 [Moles/Vol] 25 mmol/L Normal 21-32 [facility] Comment on above: Performed By: #### 1 [id number], [id number], [id number] ####[facility] (DEFAULT)[address] [place] [address] 10232 Creatinine [Mass/Vol] 0.72 mg/dL Normal 0.60-1.30 [facility] Comment on above: Performed By: #### 1 [id number], 7044375, 79458072 ####[facility] (DEFAULT)[address] [place] [address] 78976 Glucose [Mass/Vol] 100.0 mg/dL Normal 74.0-118.0 [facility] Comment on above: Performed By: #### 1 [id number], 3938447, 96576706 ####[facility] (DEFAULT)[address] [place] [address] 12334 Osmolality 275 mOsm/L Invalid Interpretation Code [facility] Comment on above: Performed By: #### 1 [id number], 8385536, 79173871 ####[facility] (DEFAULT)[address] [place] [address] 58873 Potassium [Moles/Vol] 3.4 mmol/L Low 3.6-5.1 [facility] Comment on above: Performed By: #### 1 [id number], 8001940, [id number] ####[facility] (DEFAULT)[address] [place] [address] 03929 Sodium [Moles/Vol] 138.0 mmol/L Normal 136.0-144 . 0 [facility] Comment on above: Performed By: #### 1 [id number], [id number], 89221875 ####[facility] (DEFAULT)[address] [place] [address] 76773 Urea nitrogen [Mass/Vol] 10 mg/dL Normal 8-26 [facility] Comment on above: Performed By: #### 1 [id number], 2582716, 16087543 ####[facility] (DEFAULT)[address] [place] [address] 47998 Urea nitrogen/Creatinine [Mass ratio] 14.0 mg/mg Normal 4.6-16.2 [facility] Comment on above: Performed By: #### 1 [id number], 5628672, 71007318 ####[facility] (DEFAULT)[address] [place] [address] 08943 CBC w/ Auto Diffon Erythrocyte distribution width (RBC) [Ratio] 14.6 % Normal 11.5-15.0 [facility] Comment on above: Order Comment: CBC C LOTTED. PATIENT CALLED BACK FOR RECOLLECT. Performed By: #### 1 [id number], [id number], [id number] ####[facility] (DEFAULT)[address] [place] [address] Hematocrit (Bld) [Volume fraction] 35.0 % Normal 33.7-40.4 [facility] Comment on above: Order Comment: CBC C LOTTED. PATIENT CALLED BACK FOR RECOLLECT. Performed By: #### 1 [id number], 1106921, [id number] ####[facility] (DEFAULT)[address] [place] [address] Hemoglobin (Bld) [Mass/Vol] 11.0 g/dL Low 11.3-15.9 [facility] Comment on above: Order Comment: CBC C LOTTED. PATIENT CALLED BACK FOR RECOLLECT. Performed By: #### 1 [id number], 0030104, [id number] ####[facility] (DEFAULT)[address] [place] [address] Instr WBC 8.6 x10 Invalid Interpretation Code [facility] Comment on above: Order Comment: CBC C LOTTED. PATIENT CALLED BACK FOR RECOLLECT. Result Comment: CBC RECOLLECTED @ 08/12/2021 15:15:27 EDT BY ALS. Performed By: #### 1 [id number], [id number], [id number] ####[facility] (DEFAULT)[address] [place] [address] Man Diff? Auto Normal [facility] Comment on above: Order Comment: CBC C LOTTED. PATIENT CALLED BACK FOR RECOLLECT. Performed By: #### 1 [id number], 2163661, [id number] ####[facility] (DEFAULT)[address] [place] [address] MCH (RBC) [Entitic mass] 25 pg Normal 24-34 [facility] Comment on above: Order Comment: CBC C LOTTED. PATIENT CALLED BACK FOR RECOLLECT. Performed By: #### 1 [id number], 4268466, 39655304 ####[facility] (DEFAULT)[address] [place] [address] 95038 MCHC (RBC) [Mass/Vol] 31 g/dL Normal 26-37 [facility] Comment on above: Order Comment: CBC C LOTTED. PATIENT CALLED BACK FOR RECOLLECT. Performed By: #### 1 [id number], [id number], [id number] ####[facility] (DEFAULT)[address] [place] [address] MCV (RBC) [Entitic vol] 79 fL Low 81-100 [facility] Comment on above: Order Comment: CBC C LOTTED. PATIENT CALLED BACK FOR RECOLLECT. Performed By: #### 1 [id number], 2986251, [id number] ####[facility] (DEFAULT)[address] [place] [address] Platelet 491 x10 High 138-427 [facility] Comment on above: Order Comment: CBC C LOTTED. PATIENT CALLED BACK FOR RECOLLECT. Performed By: #### 1 [id number], 8477908, [id number] ####[facility] (DEFAULT)[address] [place] [address] Platelet mean volume (Bld) [Entitic vol] 9.4 fL Normal 6.3-10.2 [facility] Comment on above: Order Comment: CBC C LOTTED. PATIENT CALLED BACK FOR RECOLLECT. Performed By: #### 1 [id number], [id number], [id number] ####[facility] (DEFAULT)[address] [place] [address] RBC 4.41 x10 Normal 3.70-5.30 [facility] Comment on above: Order Comment: CBC C LOTTED. PATIENT CALLED BACK FOR RECOLLECT. Performed By: #### 1 [id number], [id number], [id number] ####[facility] (DEFAULT)[address] [place] [address] WBC 8.6 x10 Normal 3.5-10.5 [facility] Comment on above: Order Comment: CBC C LOTTED. PATIENT CALLED BACK FOR RECOLLECT. 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 METABOLIC PANELon 03- BUN/CREATININE RATIO NOT APPLICABLE Normal - [facility] Comment on above: Order Comment: FASTI NG:YES FASTING: YES Performed By: #### 1 [id number] #### [facility] [address], [address] [place] [id number] Carpenter Assistant: Heraclio Miller MD Calcium [Mass/Vol] 9.0 mg/dL Normal 8.6-10.4 [facility] Comment on above: Order Comment: FASTI NG:YES FASTING: YES Performed By: #### 1 [id number] #### [facility] [address], [address] [place] [address] Carpenter Assistant: Heraclio Miller MD Chloride [Moles/Vol] 106 mmol/L Normal 98-110 [facility] Comment on above: Order Comment: FASTI NG:YES FASTING: YES Performed By: #### 1 [id number] #### [facility] [address], [address] [place] [address] Carpenter Assistant: Heraclio Miller MD CO2 [Moles/Vol] 27 mmol/L Normal 20-32 [facility] Comment on above: Order Comment: FASTI NG:YES FASTING: YES Performed By: #### 1 [id number] #### [facility] [place] [id number] Carpenter Assistant: Heraclio Miller MD Creatinine [Mass/Vol] 0.73 mg/dL Normal 0.50-1.05 [facility] Comment on above: Order Comment: FASTI NG:YES FASTING: YES Result Comment: For patients >49 years of age, the reference limit for Creatinine is approximately 13% higher for people identified as -[place]isian. Performed By: #### 1 [id number] #### [facility] [place] [id number] Carpenter Assistant: Heraclio Miller MD eGFR NON-AFR. THAI 96 mL/min/1.73m2 Normal > OR = 60 [facility] Comment on above: Order Comment: FASTI NG:YES FASTING: YES Performed By: #### 1 [id number] #### [facility] [place] [address] Carpenter Assistant: Heraclio Miller MD GFR/1.73 sq M.predicted among blacks MDRD (S/P/Bld) [Vol rate/Area] 111 mL/min/{1.73_m2} Normal > OR = 60 [facility] Comment on above: Order Comment: FASTI NG:YES FASTING: YES Performed By: #### 1 [id number] #### [facility] [address], [address] [place] [address] Carpenter Assistant: Heraclio Miller MD Glucose [Mass/Vol] 85 mg/dL Normal 65-99 [facility] Comment on above: Order Comment: FASTI NG:YES FASTING: YES Result Comment: Fasting reference interval Performed By: #### 1 [id number] #### [facility] [address], [address] [place] [address] Carpenter Assistant: Heraclio Miller MD Potassium [Moles/Vol] 3.7 mmol/L Normal 3.5-5.3 [facility] Comment on above: Order Comment: FASTI NG:YES FASTING: YES Performed By: #### 1 [id number] #### [facility] [address], [address] [place] [address] Carpenter Assistant: Heraclio Miller MD Sodium [Moles/Vol] 140 mmol/L Normal 135-146 [facility] Comment on above: Order Comment: FASTI NG:YES FASTING: YES Performed By: #### 1 [id number] #### [facility] [address], [address] [place] [address] Carpenter Assistant: Heraclio Miller MD Urea nitrogen [Mass/Vol] 12 mg/dL Normal 7-25 [facility] Comment on above: Order Comment: FASTI NG:YES FASTING: YES Performed By: #### 1 [id number] #### [facility] [place] [id number] Carpenter Assistant: Heraclio Miller MD Coding Summaryon 01-28-2021 Coding Summary [employer] 64 ZunwscedIWk6mGd+PGhlY WQ+US3GYTOrT13ccBXmpM 3HX5qOEH2HQODFSVSVDR9 ZMV5nbDQ7PSnpW1GuzcRp ProlkKTkZC20ALd8ZML9a LsjGWsprL1hlPHxA9k9Tl PnHD19qV99XUyzSVZiMfU 3LjZpbjsgbWFy F0jnFxNdhLDcUyc+PHRhY mxlIHdpZHRoPScxMDAlJy YbrBhtZR2gUw0lUUKzCTM vbGxhcHNlOiBj d5shVIGbHWrpYP3kmQipM 6LlzWG0WDZdd0s0Ht24gN I+IULoPOZ4eOxmRWczq37 8SmYze6dlXGK0 lXJkZQuvBTO0P80af7R6V PKhBXMfBIT4vXN3yL5iaR ojjdquN1YnyMIyNkV3ONR 3dCWyuV8nkDtg zjlqpX9dJqd+K72XUO2IP SIEMM5WRss8S1IxQpkfvM I+EM51XGBeUL97pVIdnSI vz3oypNb6IcNt QKMxUJJ1bGrhSCnrl1VnA VPwX96prHSlz4L3IXUbiN wdxGFvNwOmoPT0dR3nKKk sewjrf3jugscy Eooki5uyuk13jV22C74rK CwqWNRaSCJ2YUQrASNgnB mabj3sfE2uYl1+SSyor7r nt0lqaTi5TtAg BLUghkHkkObgKCM2l5KeJ q22U4XxdEcnd4CdDra2my 80xGLqq5R3gJG9TNgqSRN xlR7mGAhcTiL9 TIJpPcGmqQ51pNOzJHuvB d6fkZjtzUcbGM2wDREhrd puPBVpyF0cMVBttUDkiOv hDK5rCPRsqzcm t499WvUlAME5EFEodUHnG 6IjxO7oRhAdTAYoNQDgD8 FmyHTpHWooF345VNryTiI 3MMHgkdXxY1Ty YLRwcSmvJyU6n1R1Xj8Gh 7ZzauffOWV5TNdcZUJhNc Y2PlPiMnV8H0ReEad3COS rgZktLO9uP9Tn HUDlhixrhylziHU5QTIwP FIzoP37nTWuVOvyXo7ar5 S4c404DJPbOLVoxN73Df5 udDogMTBwdCBU mW6yithua2igmqksJyYmX DZbBPc4PIg7KCKrdQrvCb JgCVF7XiM9THP9hRIaqX3 jqBatlutkvV7t Oyc+T51kbQ9yUHL1JKV5e uluPHVxjrGsKW18MK79T5 RyPjwvdGFibGU+PGRpdiB xgOdiZA6hEwMt t6yho5LnPFnzK5XeSHLqX HwzLcs9ZGJuREC6lZB2cT 2uLRRuMStqp2L5hUQ2O8Y msgOuqg0ag5zh DYAxUYzjW80nvXAjj0M3O TObxPP0KXUcwZpbVnMxpR 93Oyc+ULFhzUjdc0ZgFjq zb4cko9erzFm4 NyPlMFOkwoTkbRtsBZV2z 3OdDu71Y12pYIqtRYJbGN XkUOOhERUnlMxqwc3wsL0 wIi8+PGNvbCB3 mLY8tU2zWRWcEdC5MPhcP 067WjJhwXYkArkum4wun1 stqUw7WxHrJRHzpkLcaEm vWVY9h7WvWy62 X36jBOiwJRBjEGJdXJIqB DGdjAnsni8xvR6vUm1+PC 1fg8jtxt44qJ49qES+PHR wIWX7cOnySIfu YFQgpD1gCWweYdY2BPNxV cVpiI62dDWoNGjkVl9hbC ccxImgMH1lZMOzdcchz50 0HuAsv5daPLRn bMKeBIebDKU9O40gl8M6T VIhBQSrRUG3sDJ1kX0aeA lnbjogbGVmdDsgdmVydGl eTMndTLswU179 IHRvcDsnPlBhdGllbnQgT gCkEIx3R3EzTfp9XXGcaH gvZF3stPSnSAgjVy9ezOn beDwjQS8oIEXu dfinw179IvBas3acQVKlf QFhFUrfQKR0P37ap5R1XC KdQQEdUGT7dOZ4nJ3pbDb nbjogbGVmdDsg dvPhhLjdIHifNMgpB995H HRvcDsnPkJpcnRoIERhdG G9BW57KE24sHYxn8C2uLN 4F3ZhPXLdlisn uonnrYE8SDSlKECfvY94C i4ljVdqYl4pYDTkBTO9OY YamHXhO5HevB5kXlFsRFY xCMKjK2VfyFWc HZxcO079ZWarVpL9LXJqj cSpP4VxJZOvtMreYnT0e5 Y5Sz9DQ1J7AS94DB52mVX fo7Q4pRC3X5Hd MUMlmhhvkfshiBJ6YXQkC DWrcT38Dd1ycOogVu0sJP BvTBB4ETXhqFPeC0NowL2 yOiAjMDAwMDAw L5NvpCJpDZbxN432AXeaZ sN7MTVwvlTnX9OrQUJglD tkZbW1p4V2Xe3SMZj8JP5 6AM87lATni2N1 dZL6H2YmSNLkuxsicgdvi RR7ODEcVPXlrJ73Yt1hdH xyTk1nROEiBJZ2IOWftRC xV7AhwG3tEzEy TMAhJAZiT7LacQMwXWgbZ 002XPlvWjO8JOYalqYoE1 MzQHPnjEnlPzP2t8G5Mw4 NJKRmOX48MWY5 zIV6FU01UR65V9GeFujcj GFibGU+PHRhYmxlIHdpZH RoPScxMDAlJyBzdHlsZT0 fLc7mPULwAHYt yXuroKRhKpLlk5mvFEWdC RvkMQ2urZwwG9BbrAB1GO Iow3v8Ab50E35vP9OyeMK +MEGicXD2cKE8 kW8tBgAsAmD4ZWwvB062C xYwjGOwDrrgq8iiu3odlO u0MzC4UTHqmkLokYwdFSU 5k8TvOd79Q61s IHdpZHRoPSIxNSUiIHZhb Ljlle6nxU9uTg0+PGNvbC C1vSI9xN3bGeHvUjU4QRp wB126GzLphZHh Qicym8dka6ynqDg8DgZcJ AEgnkBvqYkbAZL5y1PuIs 05C3EmyPzuj1StXyk2qv5 9zYSoh0U1kHH3 P9BeUSMnupjosSPwsHbiI A9ySLTjiluzDTQjhT7iNO McA9r0AxRlNoL2ACtpO4P ntfP4KEZqpHIj TRtmNOT9W96mj1I5OIKqD SToQFW6hTO0yG4joDjpjv ogbGVmdDsgdmVydGljYWw uYXulR823DRAo iBgmMZGouW2qMUXhoFEsz VckXM1mHZSahiinLdiUZR 1BTiwgRUxJWkFCRVRIIEF OTjwvdGQ+PHRk WIS0zDhsPZiyQIAokC5gX DFrB9r8LsReHuD0ZRhcB9 MhKRUoystfEm93gZ6mXhY rDlS7CQuyX5Dn iyT7QJRxiKIrWMjmYKN3B 69xw5W2AEZcHGUaXTF7qJ F7xD3cgGmsnujhkQZsbMy gdmVydGljYWwt NAzdJ482XLYtnKzpSeG6J qPrQyO9EtW5W1FsLrv7JP ZybGftAH7imPMaWThwQe7 zlYdcnQpcYV4z PBBjwifnWDTbrV0oQGSxs GPhiYyfCB2rKBTikhzou9 32MlRwACV8MNFmhEZgP0I txW0sEwJhQIKi XUZcU8BkvULgRIupB822N GuoUeF7YCOcoiOpO0QxKL ZucVhvGvG3h8R8Dg68KDQ ZZWFyczwvdGQ+ ZGYmYGM3iWzuHWwaIMRjj R9bGVJpH8o8YyBnXnN8OR xyW5PiKKErvxpiUc69bB8 dNlBuPoG1ZYvp U3GzhpQ9FQHckQGdMLglV US0U07ie1E7LOFyLGKeLZ Z5sOG1nM1huNhhhqqbjPS mdDsgdmVydGlj QWvmFNayI198DABsuRczI kZFTUFMRTwvdGQ+PHRkIH I6zJvjFMrtGWKauY7lUNB dX3q6LaGdMdF2 LDrtO6TlULHmpvbaUo15l G4xSfNeNyM4ZIxzO7Eqzy K3OGAfmSZbTHbbUQL6P35 ld1Z9UWVmOFIz GYI2xEF6zO9tyOdfplvyl GVmdDsgdmVydGljYWwtYW pjQ874YKBqjYfaDvTjqHO DeHJnZCD3PU14 VQ70D8EcWzuqdPPliNR+P HRhYmxlIHdpZHRoPScxMD ZlIbWmcTlfXY3iSc0cAHK yLWNvbGxhcHNl ZaBvb6jsRUFbDFigDN6sx WcgO8LebAS0HSLup9j6Qq 53H26oI5IzgHQ+PGNvbCB 9zJF2kS2iXqKo OeU2KFvlG158YvDkhWUkX vkye7yhf2lvhHt1JrUzRP GelzJjdUtnQYA2r8JvUh0 1D16gRYqkTENb WOQmKDUfVVBjaQnonn0rf G9wIi8+TVYmtPP5qEL9fR 4gLqRnAeL0DIclA317FqA vaOKgUrazP59r E4IyoFS+YRZkDet2GUMru AvbGI7ojSBbQIuvVt7gCT A3TdCoCgAdNZbcV9XbBTK pbmctcmlnaHQ6 XZNzCBFavN41Xu5siWqhY w0jEKEwGCL2QFGtnNDxF7 HqfJ0xCfYaAXLfSIYoL1S ncGHtWFjwH765 CXorKpO4FGBlyuTyN1SkZ WRylJjoSrM0e0M2Vx9IzD umqJHjEB7tHsPwHYz5K5T gEop3LVVutMpr SQ0dnVHkCWvpBa2akWjjg HwiGQ4rJWMbxneln072Cd Hbw2htZWWqjECuWVesUFC 8L30dw0S1EUZn OYRfKMC1xVP7pX2ztZfqn jogbGVmdDsgdmVydGljYW crMLkoP473SWZptHgfXkZ WBum0L0UfDdy1 DOHteRwwWC3luDKwWQdgZ u0jaDikoIamWP2rYBFkju wus894EkNwe4hzNLOxgQN mOJovOBI5W82p q8G8SNDxJSXaJYR6xJD7y B5bnCidiyhxcJFcpWzjgn XxcXkyBWyjKAimY129JYW nwVktNw3UQjd0 K2NfFsb3EGInwCdmNU0pg DVaJJjwYu5oqWelgFrdZK 9xYYXkcbotq668YiJrl4n kIDEwcHQgVGlt CRN6W80hz2H0ZCXiGPPnC LH3tQM7qB8wkIbwdwfgpE VmdDsgdmVydGljYWwtYWx rK665BMPpuDqy PlBheWVyOjwvdGQ+PC90c g96C2AoZfwaLhr9RJKlNG D8yQW5fI1hTLAtQWzsv3M 6hPV9F4CuazRr ci1 (more content not included)... [facility] Consent Formson 01-23-2021 Consent Forms [id number]#[address] [facility] PACU Record [facility] PACU Record Summary Primary Physician: Hua Oglesby DO Finalized Date/Time: 01/23/21 13:00:07 Pt. Name: IKE JONES LEIGH Edmonds/Sex: 1970 FEMALE Med Rec #: [id number] Physician: Hua Oglesby DO Financial #: [id number] Pt. Type: D Room/Bed: / Admit/Disch: 01/21/21 06:05:01 - 01/21/21 10:08:00 Institution: PACU Case Times MAGR Entry 1 In PACU I 01/21/21 08:20:00 Discharge from PACU 01/21/21 09:04:00 I Last Modified By: Lisa Connell RN 01/23/21 13:00:04 Finalized By: Lisa Connell RN Document Signatures Signed By: Lisa Connell RN 01/23/21 13:00 [facility] Consent Formson 01-22-2021 Consent Forms [id number]#1 [facility] Dis[facility] Instructions [id number]#1 [facility] Tele[facility] Strips [id number]#1 [facility] Anest[facility] Note[facility] 01-21-2021 Anesthesia Note Patient: [...] on: 01/21/2021 08:25 EST] Gen Jean MD [facility] Anesthesia Note Patient: IKE JONES Age: 50 years Sex: FEMALE : 1970 Associated Diagnoses: None Author: Gen Jean MD Preoperative Information Anesthesia history: Patient history: Nausea and vomiting with anesthesia, No difficult intubation, No malignant hyperthermia. Family history: No malignant hyperthermia. Review of Systems Respiratory: No shortness of breath, No apnea. Cardiovascular: No known [place], No chest pain. Gastrointestinal: No heartburn. Health [...] All Problems HTN (hypertension) / SNOMED CT 2623599530 / Confirmed Histories Family History: No family history items have been selected or recorded. Procedure history: Abdominal hysterectomy (393878234). Arthroscopy of knee (544608827). Lipoma ([id number]). Comments: 01/04/2021 11:19 OSKAR Becker RN, Milana [...] (JAN 21:46) DBP H 103 mmHg (JAN 21 06:46) General: Alert and oriented, No acute distress. Airway: Mallampati classification: II (soft palate, fauces, uvula visible). Respiratory: Respirations are non-labored. Cardiovascular: Normal rate. Review / Management Laboratory Results ECG interpretation: Within normal limits. Plan [place] [employer]#( A) physical status classification: Class II. Anesthetic Preoperative Plan Anesthesia: General. . Anesthetic plan, risks, benefits, and alternatives discussed with the patient and/or family. Patient verbalized understanding. Family/Guardian present. Informed consent was given. Consent was signed by the patient. [Electronically Signed on: 01/21/2021 07:10 EST] Gen Jean MD [Verified on: 01/21/2021 07:10 EST] Gen Jean MD [facility] Inpatient Patient Summaryon 01-21-2021 [place] [address] Patient Discharge Instructions Name: IKE JONES : 1970 Patient Address: [address] [place] [address] Primary Care Provider: Name: RANDY CALLE After you are discharged if you find you have any questions, please, call [phone] ext [phone] to speak to a nurse. Discharge Diagnosis: [...] alcohol and/or drug addiction problems; contact the [facility] 22/09 Crisis Hotline -Text 4HBLF fk [phone]. If you received any narcotics, sedation, or [...] or sign any legal documents [facility] would like to thank you for allowing us to assist you with your healthcare needs. The following includes patient education materials and information regarding your injury/illness. IKE JONES has been given the following list of follow-up instructions, prescriptions, and patient education materials: Follow-up Instructions With: Address: When: MYESHA VINSON [address] [place] [address], [address] [place] [id number] Business (1) 01/30/2021 11:00 AM With: Address: When: RANDY CALLE [facility] [place] [address] Business (1) Medications During the course of [...] or concerns, please call the office at [phone] Viruses or Bacteria What?s got you sick? [...] (except strep) (more content not included)... Normal [facility] MAGR Intraoperative Recordon 01-21-2021 MAGR Intraoperative Record MAGR Intra-Op Record Summary Primary Physician: Hua Oglesby DO Finalized Date/Time: 01/21/21 11:10:34 Pt. Name: IKE JONES LEIGH Garduno/Sex: 1970 FEMALE Med Rec #: [id number] Physician: Hua Oglesby DO Financial #: [id number] Pt. Type: D Room/Bed: / Admit/Disch: 01/21/21 [...] Role Performed Surgeon - Primary Anesthesiologist of Hotel Front Desk Clerk Record Time In 01/21/21 07:22:00 01/21/21 07:22:00 01/21/21 07:22:00 Time Out 01/21/21 08:17:00 01/21/21 08:17:00 01/21/21 08:17:00 Procedure Arthroscopy Knee(Right) Arthroscopy Knee(Right) Arthroscopy Knee(Right) Last Modified By: Dorothy Archer RN, Barbara RN Long, Barbara RN 01/21/21 08:21:11 01/21/21 08:21:11 01/21/21 08:21:11 Entry 4 Entry 5 Case Attendee Nemo Mendez CST, Regina CST Role Performed Scrub Personnel Print Machine Operator Time In 01/21/21 07:22:00 01/21/21 07:22:00 Time Out 01/21/21 08:17:00 01/21/21 08:17:00 Procedure Arthroscopy Knee(Right) Arthroscopy Knee(Right) Last Modified By: Dorothy Archer RN, Barbara RN 01/21/21 08:21:11 01/21/21 08:21:11 Surgical Procedures MAGR Pre-Care Text: A.20 Verifies operative procedure, surgical site, and laterality Im.150 Develops individualized plan of care Entry 1 Procedure Arthroscopy Knee Primary Procedure Yes Primary Surgeon Hua Oglesby Right Efra DO Surgeon Comment RIGHT KNEE [...] Post-Care T (more content not included)... Normal [facility] MAGR Postoperative Recordon 01-21-2021 MAGR Postoperative Record MAGR Phase II Record Summary Primary Physician: Hua Oglesby DO Finalized Date/Time: 01/21/21 10:17:55 Pt. Name: IKE JONES LEIGH RosenO.B./Sex: 1970 FEMALE Med Rec #: [id number] Physician: Hua Oglesby DO Financial #: [id number] Pt. Type: D Room/Bed: / Admit/Disch: 01/21/21 [...] Signed By: Marianna Gerber RN 01/21/21 10:17 [facility] 1 03-23-2020 MAGR Preoperative Record MAGR Pre-Op Rec ord Summary Primary Physician: Hua Oglesby DO Finalized Date/Time: 01/21/21 08:40:07 Pt. Name: IKE JONES LEIGH /Sex: 1970 FEMALE Med Rec #: [id number] Physician: Hua Oglesby DO Financial #: [id number] Pt. Type: D Room/Bed: / Admit/Disch: 01/21/21 [...] Preop Departure 01/21/21 07:20:00 Last Modified By: Gino Painter RN 01/21/21 08:40:05 Post-Care Text: Patient [...] 24 hours that requires concentration Finalized By: Gino Painter RN Document Signatures Signed By: Gino Painter RN 01/21/21 08:40 [facility] Operative Report - Surgeon/P aster 01-21-2021 [...] on: 01/21/2021 10:16 EST] Hua Oglesby DO [facility] Patient Handouton 01-21-[address] [...] or concerns, please call the office at [phone] [facility] COMPREHENSIVE METABOLIC PANE [facility] 01-12-2021 Albumin [Mass/Vol] 4.3 g/dL Normal 3.6-5.1 [facility] Comment on above: Performed By: #### 7 600, [id number] #### [facility] [address], [address] [place], [place] [id number] Carpenter Assistant: Heraclio Miller MD Albumin/Globulin [Mass ratio] 1.8 {ratio} Normal 1.0-2.5 [facility] Comment on above: Performed By: #### 7 600, 04839 #### [facility] [address], [address] [place], [place] [id number] Carpenter Assistant: Heraclio Miller MD ALP [Catalytic activity/Vol] 60 U/L Normal 37-153 [facility] Comment on above: Performed By: #### 7 600, [id number] #### [facility] [address], [address] [place] [phone] Carpenter Assistant: Heraclio Miller MD ALT [Catalytic activity/Vol] 17 U/L Normal 6-29 [facility] Comment on above: Performed By: #### 7 600, 97899 #### [facility] of [address], [address] [place] [address] Carpenter Assistant: Heraclio Miller MD AST [Catalytic activity/Vol] 18 U/L Normal 10-35 [facility] Comment on above: Performed By: #### 7 600, 53217 #### [facility] of [address], [address] [place] [address] Carpenter Assistant: Heraclio Miller MD Bilirubin [Mass/Vol] 1.1 mg/dL Normal 0.2-1.2 [facility] Comment on above: Performed By: #### 7 600, 93744 #### [facility] of [place] [address] Carpenter Assistant: Heraclio Miller MD BUN/CREATININE RATIO NOT APPLICABLE Normal 6-22 [facility] Comment on above: Performed By: #### 7 600, 16776 #### [facility] of [address], [address] [place] [address] Carpenter Assistant: Heraclio Miller MD Calcium [Mass/Vol] 9.3 mg/dL Normal 8.6-10.4 [facility] Comment on above: Performed By: #### 7 600, 35079 #### [facility] of [address], [address] [place] [address] Carpenter Assistant: Heraclio Miller MD Chloride [Moles/Vol] 105 mmol/L Normal 98-110 [facility] Comment on above: Performed By: #### 7 600, 97762 #### [facility] of [address], [address] [place] [address] Carpenter Assistant: Heraclio Miller MD CO2 [Moles/Vol] 28 mmol/L Normal 20-32 [facility] Comment on above: Performed By: #### 7 600, 57190 #### [facility] of [address], [address] [place] [address] Carpenter Assistant: Heraclio Miller MD Creatinine [Mass/Vol] 0.86 mg/dL Normal 0.50-1.[address] [facility] Comment on above: Result Comment: For patients >49 years of age, the reference limit for Creatinine is approximately 13% higher for people identified as -[place]. Performed By: #### 7 600, 66039 #### [facility] [address], [address] [place] [address] Carpenter Assistant: Heraclio Miller MD eGFR NON-AFR. THAI 79 mL/min/1.73m2 Normal > OR = 60 [facility] Comment on above: Performed By: #### 7 600, 86940 #### [facility] [address], [address] [place] [address] Carpenter Assistant: Heraclio Miller MD GFR/1.73 sq M.predicted among blacks MDRD (S/P/Bld) [Vol rate/Area] 91 mL/min/{1.73_m2} Normal > OR = 60 [facility] Comment on above: Performed By: #### 7 600, 18155 #### [facility] [address], [address] [place] [address] Carpenter Assistant: Heraclio Miller MD Globulin (S) [Mass/Vol] 2.4 g/dL Normal 1.9-3.7 [facility] Comment on above: Performed By: #### 7 600, 36552 #### [facility] [address], [address] [place] [address] Carpenter Assistant: Heraclio Miller MD Glucose [Mass/Vol] 86 mg/dL Normal 65-139 [facility] Comment on above: Result Comment: Non-fasting reference interval Performed By: #### 7 600, 06668 #### [facility] [address], [address] [place] [address] Carpenter Assistant: Heraclio Miller MD Potassium [Moles/Vol] 3.9 mmol/L Normal 3.5-5.[address] [facility] Comment on above: Performed By: #### 7 600, 19446 #### [facility] [address], [address] [place] [address] Carpenter Assistant: Heraclio Miller MD Protein [Mass/Vol] 6.7 g/dL Normal 6.1-8.1 [facility] Comment on above: Performed By: #### 7 600, 71766 #### [facility] of [address], [address] [place] [address] Carpenter Assistant: Heraclio Miller MD Sodium [Moles/Vol] 140 mmol/L Normal 135-146 [facility] Comment on above: Performed By: #### 7 600, 64915 #### [facility] of [place] [address] Carpenter Assistant: Heraclio Miller MD Urea nitrogen [Mass/Vol] 15 mg/dL Normal 7-25 [facility] Comment on above: Performed By: #### 7 600, 89612 #### [facility] [place] [address] Carpenter Assistant: Heraclio Miller MD LIPID PANEL, [place] [address] Cholesterol [Mass/Vol] 173 mg/dL Normal <200 [facility] Comment on above: Order Comment: FASTI NG:NO FASTING: NO Performed By: #### 7 600, 55853 #### [facility] of [place] [address] Carpenter Assistant: Heraclio Miller MD Cholesterol in HDL [Mass/Vol] 69 mg/dL Normal > OR = 50 [facility] Comment on above: Order Comment: FASTI NG:NO FASTING: NO Performed By: #### 7 600, 68392 #### [facility] of [place] [address] Carpenter Assistant: Heraclio Miller MD Cholesterol in LDL [Mass/Vol] 89 mg/dL Normal [facility] Comment on above: Order Comment: FASTI NG:NO FASTING: NO Result Comment: Refe rence range: <100 Desirable range <100 mg/dL for primary prevention; <70 mg/dL for patients with CHD or diabetic patients with > or = 2 CHD risk factors. LDL-C is now calculated using the Campos-Ruiz calculation, which is a validated novel method providing better accuracy than the Friedewald equation in the estimation of LDL-C. Campos SS et al. MARQUISE. 2013;310(19): 4659-8804 (http://education.MeFeedia.Goodwall/faq/ZNV126) Performed By: #### 7 600, 37706 #### [facility] [address], [address] [place] [address] Carpenter Assistant: Heraclio Miller MD Cholesterol.total/Choles terol in HDL [Mass ratio] 2.5 {ratio} Normal <5.0 [facility] Comment on above: Order Comment: FASTI NG:NO FASTING: NO Performed By: #### 7 600, 91771 #### [facility] [address], [address] [place] [address] Carpenter Assistant: Heraclio Miller MD NON HDL CHOLESTEROL 104 mg/dL (calc) Normal <130 [facility] Comment on above: Order Comment: FASTI NG:NO FASTING: NO Result Comment: For patients with diabetes plus 1 major ASCVD risk factor, treating to a non-HDL-C goal of <100 mg/dL (LDL-C of <70 mg/dL) is considered a therapeutic option. Performed By: #### 7 600, 44912 #### [facility] [place] [address] Carpenter Assistant: Heraclio Miller MD Triglyceride [Mass/Vol] 68 mg/dL Normal <150 [facility] Comment on above: Order Comment: FASTI NG:NO FASTING: NO Performed By: #### 7 600, 25902 #### [facility] [address], [address] [place] [address] Carpenter Assistant: Heraclio Miller MD Coding Summaryon 01-09-2021 Coding Summary HTMLBase 64 HklkbtumCVv4rAv+PGhlY WQ+PQ5WYGYpY53bsCYbbY 5BN4nCBY8IVTNQWZVWPP6 IHN4fkMO3AKvnN1RlbgAw VtvntPUtTN81ORr3PGH7b NixIYcuaK0qwVPnB2n9Zg JzFU65qA53UCyeSIOyKkS 3LjZpbjsgbWFy G7vsAyHmuGVdNpn+PHRhY mxlIHdpZHRoPScxMDAlJy QrhYleNB5wKt8wCPJsNTM vbGxhcHNlOiBj o9cvHINwITxcZN5ejIsvD 4VfvVM9YFEmq7c1Nz77dW I+XWAdPKM1bJbcNGxbr01 2NqHaf8feWMX6 fERrBMavBZM8H92qw3F1N IKfFNZgSYH5jZN6cL4hoI eiwrouL3XcvXYqNhG5WWZ 3vDIiiP1ltZmt ohzxkE7nXzs+B43HII7PX KGZIN8YIiv2D0MoFxnssT I+AD36UGPpOH22kCDhhOM rc6agjRi4NeKr IATnQTF2pEvpUNcub4JiJ IGnO65iyKBcf1D5FEFovO mnlZNqCkLygCH4bL2yOMl htavyv1qhtxqe Pxkey5uoif34sO92H60wS JfnWVVnZNT1PULyKVDemK macy6saX1aYy5+RJcdd0c cg8krjRp3KsMm HMHslmMtcHjmROB4v5UkF k07G8BpeVytl5RjQgl9mt 80uSQap9H1wQN7ASbeMPQ zpM4lDOuvLpZ7 GWXyOaYfsN81lITwHZnfH j2swZavhXgxBU6qMYUdmg htQXSypE7fVRHvxEXbxIp sIW9zZXBydast u626QjRsNCB1UZNeoOCdM 8PpgY3lEtNtEPIpZGIaE7 AixOIjBSztT167EKwiXzF 4PSOplwZvY3Ys CFKkaRohEiC4s9L9Fn2Uw 1ZvcxsfPEE2PHajBBDpHu ZvLeBpXjB8D5HgYht5TAV avZghSD8jO8Gm DOYtlqukzhhfeBF0ERRqD ZOseY41wZMzKTyeEb6ay7 G1y423ZQKkZFRezE16Rn4 udDogMTBwdCBU lW6veyoku7amwcggWqKdX IJzRXw5NEi4QCJimYeePq DaYAE7StJ4OJM7nPZagJ8 phWoxzajgwT4d Oyc+Y27gwQ3wZHL2FZM1m chyETLjrtMvBY25XW48T4 RyPjwvdGFibGU+PGRpdiB mkBusDK9sExNp i2fkf0OqKSupA1NpYNBlR QncQlo1GLUsGYH9wNE5dO 7dKGLnVWxcw3C2dUW8K9C qenZyzf8av9ir FTLcTGoaM46bgGXwv2Q8A MLmrVQ9TVGraRkuBmBtmG 93Oyc+UIFtbLawd4SlTfi wt0xgj0ukgPd9 LmWtBSTyfiHdsXwbIRN1g 5OeUv03C58bJItnQJGeDR ArHQScLKUmyAfrix8doT3 wIi8+PGNvbCB3 zUQ4cV1lIUNiHxU3PYiyA 579UwLwuVAzXovjp3mzs5 zzjOp6OlCyCBVmpkSrcVt sLSV7k5YjNv55 Z82wXIhyXUWmANTrUPMzH RJliGmjry2jkE3cIc0+PC 9ux7iiny09lL33qHT+PHR mTCI3hRyxINhj OINnvT0oHXakPaP7MCTkF eLjfR16cGRpTQirVw9smS vgeOgoHQ9ePSBefiila33 5ApPhp3ovIHOl qDByQEslOGD5H47yj2G1L GNpHRNqNEK9tTM6pK9jpP lnbjogbGVmdDsgdmVydGl mHSrsLCdeX883 IHRvcDsnPlBhdGllbnQgT kIhRTg5G1ZtIje7TYEppM qpNU8neKOpILylIq6swTd fqXmbIY5iYFFn apqrf358HwTwo6ejPGVlq QPlGEbdFVH2L56jc9G4LU TzXZKgQCI2nOW1eL8tjCg nbjogbGVmdDsg hgDkvXklYTbuFNkxR115D HRvcDsnPkJpcnRoIERhdG F0TS64HM81aMDsn9G4sXR 0O0HoNOQnnwog fdscjTX6YBTyGZFptZ90X i5spWzjUo9dTIBsDRF3KZ UcdMPgU8ZaaW9yQcJjNIB oUNLiX4MbyMCb KFfjK238UUijBwL5LYIas cPpB7NuKGFwbIkkRjY8n3 U2Hk6EP3P7LE81JO58zPI kt4L7dCQ0T8Gt CSHptgvktoqfwQH5RCQxT OMjsX58Tg7piSdiMl8oFW OaHCK0MOLhqCCeY2HygI3 yOiAjMDAwMDAw V2OagJFxHPrgF995VPglU eF3TFNvukLmI0HfOPHnmK smRnM0e6W1Oy5LXEf2UG7 2WP09vHFgj5V8 aKJ8F3IqYZJraigfjffhi GO3FDGlLZPhnV68Bi1duW biXi1lNDOrHYS2EHBybDO hY1WanK9zAiXl APXjCIHxH7CcqIMaYJyzQ 277KBggFtD6FTFwsfBpY8 HaFSJmyGoaVyN5r1E7Tx1 RZVEvMZ34BNP0 eQY4SM41ZE30J1CqBzstk GFibGU+PHRhYmxlIHdpZH RoPScxMDAlJyBzdHlsZT0 uIv2bSCNdMFTj xJgqjLKyCtKig3woGKTiK CjgEM2liUkmJ2OtrAH4CT Mxh3x8Eq88I56fS1CdpVT +QIRzjCP1dSF8 lM3qQsQxFxS7PBxqY341I oGpkPGfMbsrp4xet2kjyZ q2SwD6LBHtgjRwzKlcQKY 1i9NjMo37M06r IHdpZHRoPSIxNSUiIHZhb Qlawh8wnY3gSo6+PGNvbC W8xAK9rO4qJeHwCzN5QKy lS706QzPooFUt Vcegh0bzv6jxxWj1EcLzB XUkekSskPoqYNL4h7TpEk 12X4ZagRicy8MvIga0ze1 8nLBio5K9iWQ5 M3HuSPEocdzcyKGwuKbsT H4bZOWwzpysUBGqtC9qTI IpT1m1DqRtZmL2UZyyR6R jggU6BAAvlFFk WGixGZE1P61lx6D1ONHkO DHqZHF5wTW6rC9owRwbre ogbGVmdDsgdmVydGljYWw lCCeiR023UDXe tBteSTRylR4kLFIviGCua EieVD8sSEQfsfzhSqiGAG 1BTiwgRUxJWkFCRVRIIEF OTjwvdGQ+PHRk GKS0cBnkBIckLSCozO7eF ZKbC4v9SnMrMkI1JXfoK1 FaNTInuuhtBt95oS4gPtD nRpA3UGnnA3Uj riT9YOXbsEMvSTolUKT1A 91uq6X3BTXmOOBoJFW6iZ Y4sB5vpBorpgkbpIPfjCo gdmVydGljYWwt VAqoT172DSAtnBkfChE3D iGiEgG9DpA3P6OaClh4OB EamOzkJX5wdWUiDOygPh0 utHljiBjoCG0k GGIjlajyCSMytG0uAEFcv UOdyEajGP6cTGIvdhrdt7 01RaZuCJQ3AYVmpQPoL3Z epL8xByMwXORd HXXaP7KexHReNLvwU399P LkaEoY9DTVhulIpI3NzCI UlqXduMbQ3z7C8Ma23TLI ZZWFyczwvdGQ+ SOSsIRV5xAhzHUbqFYAuw E2uXYIrL5d6VwJpSsJ6JN kkI4PiTUAvflfyYu22iF5 iXtCdQdL1VTim X9EsvsW7LEYocMXsEMedW ID7Q68nx4G7NVOxGQYiUF U3fKG0hL5zsImnugsnePS mdDsgdmVydGlj NXhkXKwqF079IHMfpHhfZ kZFTUFMRTwvdGQ+PHRkIH G9kAhcEPyxSTXwzE6bZYJ nK9y7XjJlCwQ0 BFhcW8JlACRbhdfaNn73e H0oOfByWqW2FMagK8Isim M0WAOjfTPoRKwhXKH5W71 sb3W7ZOZuCORe IZT8uRE9rQ0raYcwdftck GVmdDsgdmVydGljYWwtYW zxU075NAXgtGajVz1BYX9 7KM01U1OgCatq dGFibGU+PHRhYmxlIHdpZ HRoPScxMDAlJyBzdHlsZT 8tOy5eWEAlYAIwcFupmKN dXbZvg8btEVXt FBpxYU8rcEcaU2XusFS4W BXln0n7Pi21R29tK4ZhnN A+VZCgtDM6nTV4oA4sRgL dFqW3LJskX006 UbAneZWiJfjum3obw3xfp Sd0IvVtVWJiyuGywSchRS H8o2IlBa83K98dRPraEXF oPSIyMCUiIHZh tHzlib3ujA7sCf9+PGNvb FQ3cKS5iQ6gDdGnAcU3EO igL336WpOttMHoMiisY74 oG2KcyOX+PHRy Glb3MFAcrTnaDQ2jrFIvZ SoyZk8jAWH0FnYuCfOgID afH3UqBWYvcfeysmdgsCO 1JRYqERBllA21 Ox5yzGydIc3kFIUqMVI3P MKlwEHyD5PpbP9pBmGmBQ TcZRSvD3PrvOUlUBivO98 9FCjdPjY8NLYi ynPmL8CnRJKdjPluUsU4s 4Z6Jd0ZvJdsuPOcSN4cDw SwJAj6F4GbFjw1QNBicWm mSR6ueRDiZOph Ty1ayEmcnPgcFN0mELQdr absf781PtOyo0epDWGorZ YiSIjmSLD0G05vw3N2KWD kDHIhLYK2zIK4 aG7ruQoksvrmbGHynGoag hDtjOjhEDizWFykT801LV YueZwhNmQOGee0O8XrVft 5AWKcyNaqEX6y sETuMIajAy4vaWzltOrtL T6dFWWzkvszi252UjQtf2 tgNUNzvLTrSDzcIWY9Q27 ct9R4HISqIRAe EXY5uXT7zZ4xmAmwoeqod GVmdDsgdmVydGljYWwtYW edV572MMMolAugVb2ORoe 6U3NaXfo7TQTw sEooZK3csWVbRXoxSg5us OxtsFsnKJ7jFWBogdwmv0 89WfErd5dhQIVkrUZnQPc jLQD8X43tq0M0 RDPsBCTmIAL7jSX9tX2de GlnbjogbGVmdDsgdmVydG pjRQedOMwcT663JZLnsUn nPlBheWVyOjwv dGQ+KL82mq56D4ZrCdryR hh0SAKmEYX2zYC8eJ3eNF OeSGaav9H5iVE1A6SpuiR xeb7vq8lgRRRx ZTo (more content not included)... [facility] Consent Formson 01-08-2021 Consent Forms [id number] [facility] Progress Note - Nurseon Progress Note - Nurse PAT review for 01-21-2021 surgery reviewed per anesthesiologist, Dr. Gutierrez- no additional orders received. [Electronically Signed on: 01/07/2021 14:24 EST] Elvira Navarro RN [Verified on: 01/07/2021 14:24 EST] Elvira Navarro RN [facility] .Auto Diff 1on 01-04-2021 Auto Dawes % 8 % Normal 12 [facility] Comment on above: Performed By: #### 1 [id number] ####[facility] (DEFAULT)[address] [place] [address] [id number] Baso Abs# 0.1 x10 Normal 0.0-0.2 [facility] Comment on above: Performed By: #### 1 [id number] ####[facility] (DEFAULT)[address] [place] [address] [id number] Basophils/100 WBC (Bld) 1.2 % Normal 0.2-2.0 [facility] Comment on above: Performed By: #### 1 [id number] ####[facility] (DEFAULT)[address] [place] [address] [id number] Eos Abs# 0.3 x10 Normal 0.0-0.4 [facility] Comment on above: Performed By: #### 1 [id number] ####[facility] (DEFAULT)[address] [place] [address] 42629 Eosinophils/100 WBC (Bld) 3.6 % Normal 0.9-4.0 [facility] Comment on above: Performed By: #### 1 [id number] ####[facility] (DEFAULT)[address] [place] [address] [id number] Lymph Abs# 2.6 x10 Normal 1.3-2.9 [facility] Comment on above: Performed By: #### 1 [id number] ####[facility] (DEFAULT)[address] [place] [address] [address] Lymphocytes/100 WBC (Bld) 34 % Normal 14-48 [facility] Comment on above: Performed By: #### 1 [id number], [id number], [id number] ####[facility] (DEFAULT)[address] [place] [address] Dawes Abs# 0.6 x10 Normal 0.0-0.8 [facility] Comment on above: Performed By: #### 1 [id number], [id number], [id number] ####[facility] (DEFAULT)[address] [place] [address] 31832 Neut Abs# 3.9 x10 Normal 1.5-9.2 [facility] Comment on above: Performed By: #### 1 [id number], [id number], [id number] ####[facility] (DEFAULT)[address] [place] [address] 57582 Neutrophils/100 WBC (Bld) 53 % Normal 44-88 [facility] Comment on above: Performed By: #### 1 [id number], [id number], [id number] ####[facility] (DEFAULT)[address] [place] [address] Standardon 01-04-2021 eGFR Non AA >60 Invalid Interpretation Code [facility] Comment on above: Performed By: #### 1 [id number], [id number] ####[facility] (DEFAULT)[address] [place] [address] eGFR AA >60 Invalid Interpretation Code [facility] Comment on above: Result Comment: Yard Caller medina Kidney disease could be indicated at eGFRs of less than 60 ml/min/1.73m2. Kidney Failure is indicated at less than 15 ml/min/1.73m2 Performed By: #### 1 [id number], [id number] ####[facility] (DEFAULT)[address] [place] [address]506 Anion gap [Moles/Vol] 12.0 mmol/L Normal 5.0-19.0 [facility] Comment on above: Performed By: #### 1 [id number], [id number], [id number] ####[facility] (DEFAULT)[address] [place] [address] 62577 Calcium [Mass/Vol] 9.5 mg/dL Normal 8.9-10.3 [facility] Comment on above: Performed By: #### 1 [id number], [id number], [id number] ####[facility] (DEFAULT)[address] [place] [address] 19891 Chloride [Moles/Vol] 102 mmol/L Normal 101-111 [facility] Comment on above: Performed By: #### 1 [id number], [id number] ####[facility] (DEFAULT)[address] [place] [address] 62357 CO2 [Moles/Vol] 27 mmol/L Normal 21-32 [facility] Comment on above: Performed By: #### 1 [id number], [id number] ####[facility] (DEFAULT)[address] [place] [address] 83322 Creatinine [Mass/Vol] 0.77 mg/dL Normal 0.60-1.30 [facility] Comment on above: Performed By: #### 1 [id number], [id number], [id number] ####[facility] (DEFAULT)[address] [place] [address] 02482 Glucose [Mass/Vol] 88.0 mg/dL Normal 74.0-118.0 [facility] Comment on above: Performed By: #### 1 [id number], [id number], [id number] ####[facility] (DEFAULT)[address] [place] [address] 52944 Osmolality 275 mOsm/L Invalid Interpretation Code [facility] Comment on above: Performed By: #### 1 [id number], [id number], [id number] ####[facility] (DEFAULT)[address] [place] [address] Potassium [Moles/Vol] 3.4 mmol/L Low 3.6-5.1 [facility] Comment on above: Performed By: #### 1 [id number], [id number], [id number] ####[facility] (DEFAULT)[address] [place] [address] Sodium [Moles/Vol] 138.0 mmol/L Normal 136.0-144 . 0 [facility] Comment on above: Performed By: #### 1 [id number], [id number], [id number] ####[facility] (DEFAULT)[address] [place] [address] Urea nitrogen [Mass/Vol] 13 mg/dL Normal 8-26 [facility] Comment on above: Performed By: #### 1 [id number], [id number], [id number] ####[facility] (DEFAULT)[address] [place] [address] Urea nitrogen/Creatinine [Mass ratio] 17.0 mg/mg High 4.6-16.2 [facility] Comment on above: Performed By: #### 1 [id number], [id number], [id number] ####[facility] (DEFAULT)[address] [place] [address] CBC w/ Auto Diffon Erythrocyte distribution width (RBC) [Ratio] 13.7 % Normal 11.5-15.0 [facility] Comment on above: Performed By: #### 1 [id number], [id number], [id number] ####[facility] (DEFAULT)[address] [place] [address] Hematocrit (Bld) [Volume fraction] 37.5 % Normal 33.7-40.4 [facility] Comment on above: Performed By: #### 1 [id number], [id number], [id number] ####[facility] (DEFAULT)[address] [place] [address] Hemoglobin (Bld) [Mass/Vol] 11.7 g/dL Normal 11.3-15.9 [facility] Comment on above: Performed By: #### 1 [id number], [id number], [id number] ####[facility] (DEFAULT)[address] [place] [address] 01757 Instr WBC 7.4 x10 Invalid Interpretation Code [facility] Comment on above: Performed By: #### 1 [id number], [id number], [id number] ####[facility] (DEFAULT)[address] [place] [address] 53761 Man Diff? Auto Normal [facility] Comment on above: Performed By: #### 1 [id number], [id number], [id number] ####[facility] (DEFAULT)[address] [place] [address] 52883 MCH (RBC) [Entitic mass] 26 pg Normal 24-34 [facility] Comment on above: Performed By: #### 1 [id number], [id number], [id number] ####[facility] (DEFAULT)[address] [place] [address] 35714 MCHC (RBC) [Mass/Vol] 31 g/dL Normal 26-37 [facility] Comment on above: Performed By: #### 1 [id number], [id number], [id number] ####[facility] (DEFAULT)[address] [place] [address] 28466 MCV (RBC) [Entitic vol] 84 fL Normal 81-100 [facility] Comment on above: Performed By: #### 1 [id number], [id number], [id number] ####[facility] (DEFAULT)[address] [place] [address] 92897 Platelet 393 x10 Normal 138-427 [facility] Comment on above: Performed By: #### 1 [id number], [id number], [id number] ####[facility] (DEFAULT)[address] [place] [address] 04661 Platelet mean volume (Bld) [Entitic vol] 9.7 fL Normal 6.3-10.2 [facility] Comment on above: Performed By: #### 1 [id number], [id number], [id number] ####[facility] (DEFAULT)[address] [place] [address] RBC 4.48 x10 Normal 3.70-5.30 [facility] Comment on above: Performed By: #### 1 [id number], [id number], [id number] ####[facility] (DEFAULT)[address] [place] [address] WBC 7.4 x10 Normal 3.5-10.5 [facility] Comment on above: Performed By: #### 1 [id number], [id number], [id number] ####[facility] (DEFAULT)[address] [place] [address] CULTURE, URINE, ROUTINEon CULTURE, URINE, ROUTINE SEE NOTE Abnormal [facility] Comment on above: Result Comment: CULTURE, URINE, ROUTINE Micro Number: [id number] Test Status: Final Specimen Source: Not given [...] loracarbef. Performed By: #### 3 95 #### [facility] [address] [facility], [address] [place] [address] Carpenter Assistant: Heraclio Miller MD Vital Signs Date Time Vital Sign Value Performing Clinician Facility 01-25-2024 10:07-0500 Body height 180.3 cm Yves Solis MD Work Phone: [facility] 01-25-2024 10:07-0500 Body mass index (BMI) [Ratio] 29.29 kg/m2 Yves Solis MD Work Phone: [facility] 01-25-2024 10:07-0500 Body weight 95.25 kg Yves Solis MD Work Phone: [facility] 12-29-2023 08:49-0400 Diastolic blood pressure 86 mm[Hg] Shereen Smallwood PA-C Work Phone: [facility] 12-29-2023 08:49-0400 Heart rate 111 /min Shereen Smallwood PA-C Work Phone: [facility] 12-29-2023 08:49-0400 Respiratory rate 14 /min Shereen Smallwood PA-C Work Phone: [facility] 12-29-2023 08:49-0400 Systolic blood pressure 143 mm[Hg] Shereen Smallwood PA-C Work Phone: [facility] 12-28-2023 21:30-0400 Diastolic blood pressure 95 mm[Hg] Rusty Clifford [facility] 12-28-2023 21:30-0400 Heart rate 85 /min Rusty Clifford [facility] 12-28-2023 21:30-0400 Mean blood pressure 114 mm[Hg] Rusty Clifford [facility] 12-28-2023 21:30-0400 Respiratory rate 16 /min Rusty Clifford [facility] 12-28-2023 21:30-0400 SaO2% (BldA) [Mass fraction] 94 % Rusty Clifford [facility] 12-28-2023 21:30-0400 Systolic blood pressure 153 mm[Hg] Rusty Clifford [facility] 12-28-2023 21:00-0400 Diastolic blood pressure 96 mm[Hg] Rusty Clifford [facility] 12-28-2023 21:00-0400 Heart rate 89 /min Rusty Clifford [facility] 12-28-2023 21:00-0400 Mean blood pressure 119 mm[Hg] Rusty Clifford [facility] 12-28-2023 21:00-0400 SaO2% (BldA) [Mass fraction] 96 % Rusty Clifford [facility] 12-28-2023 21:00-0400 Systolic blood pressure 164 mm[Hg] Rusty Clifford [facility] 12-28-2023 20:27-0400 Body temperature 98.24 [degF] Rusty Clifford [facility] 12-28-2023 20:27-0400 Diastolic blood pressure 86 mm[Hg] Rusty Clifford [facility] 12-28-2023 20:27-0400 Heart rate 95 /min Rusty Clifford [facility] 12-28-2023 20:27-0400 Respiratory rate 16 /min Rusty Cilfford [facility] 12-28-2023 20:27-0400 SaO2% (BldA) [Mass fraction] 97 % Rusty Clifford [facility] 12-28-2023 20:27-0400 Systolic blood pressure 154 mm[Hg] Rusty Clifford [facility] 12-21-2023 13:57-0400 Diastolic blood pressure 84 mm[Hg] Marisela Cuevas FLUOROSCOPE OPERATOR-GARMENT STEAMER Work Phone: [facility] 12-21-2023 13:57-0400 Heart rate 96 /min Marisela Cuevas FLUOROSCOPE OPERATOR-GARMENT STEAMER Work Phone: [facility] 12-21-2023 13:57-0400 Respiratory rate 14 /min Marisela Cuevas FLUOROSCOPE OPERATOR-GARMENT STEAMER Work Phone: [facility] 12-21-2023 13:57-0400 Systolic blood pressure 141 mm[Hg] Marisela Cuevas FLUOROSCOPE OPERATOR-GARMENT STEAMER Work Phone: [facility] 12-14-2023 14:14-0400 Body height 180.3 cm Suzette Romp PA Work Phone: [facility] 12-14-2023 14:14-0400 Body mass index (BMI) [Ratio] 29.15 kg/m2 Suzette Romp PA Work Phone: [facility] 12-14-2023 14:14-0400 Body weight 94.8 kg Suz[facility] Romp PA [facility] 12-14-2023 14:14-0400 Diastolic blood pressure 87 mm[Hg] Suzette Romp PA Work Phone: [facility] 12-14-2023 14:14-0400 Heart rate 86 /min Suzette Romp PA Work Phone: [facility] 12-14-2023 14:14-0400 Respiratory rate 18 /min Suzette Romp PA Work Phone: [facility] 12-14-2023 14:14-0400 Systolic blood pressure 142 mm[Hg] Suzette DUFFY Work Phone: [facility] 12-09-2023 11:55-0400 Body temperature 97.5 [degF] Amy Jack MD Work Phone: [facility] 12-09-2023 11:55-0400 Diastolic blood pressure 70 mm[Hg] Amy Jack MD Work Phone: [facility] 12-09-2023 11:55-0400 Heart rate 75 /min Amy Jack MD Work Phone: [facility] 12-09-2023 11:55-0400 SaO2% (BldA) [Mass fraction] 99 % Amy Jack MD Work Phone: [facility] 12-09-2023 11:55-0400 Systolic blood pressure 125 mm[Hg] Amy Jack MD Work Phone: [facility] 12-09-2023 09:14-0400 Respiratory rate 18 /min Amy Jack MD Work Phone: [facility] 12-05-2023 05:53-0400 Body mass index (BMI) [Ratio] 30.29 kg/m2 Amy Jack MD Work Phone: [facility] 12-05-2023 05:53-0400 Body weight 98.5 kg Amy Jack MD Work Phone: [facility] 12-03-2023 00:06-0400 Body height 180.3 cm Amy Jack MD Work Phone: [facility] 12-02-2023 10:21-0400 Body height 180.3 cm Jhon Rosado MD Work Phone: [facility] 12-02-2023 10:21-0400 Body mass index (BMI) [Ratio] 29.29 kg/m2 Jhon Rosado MD [facility] 12-02-2023 10:21-0400 Body temperature 97.39 [degF] Jhon Rosado MD Work Phone: [facility] 12-02-2023 10:21-0400 Body weight 95.2 kg Jhon Rosado MD Work Phone: [facility] 12-02-2023 10:21-0400 Diastolic blood pressure 88 mm[Hg] Jhon Rosado MD Work Phone: [facility] 12-02-2023 10:21-0400 Heart rate 84 /min Jhon Rosado MD Work Phone: [facility] 12-02-2023 10:21-0400 Respiratory rate 14 /min Jhon Rosado MD Work Phone: [facility] 12-02-2023 10:21-0400 Systolic blood pressure 142 mm[Hg] Jhon Rosado MD Work Phone: [facility] 11-26-2023 11:54-0400 Diastolic blood pressure 82 mm[Hg] Jhon Rosado MD Work Phone: [facility] 11-26-2023 11:54-0400 Heart rate 93 /min Jhon Rosado MD Work Phone: [facility] 11-26-2023 11:54-0400 Respiratory rate 14 /min Jhon Rosado MD Work Phone: [facility] 11-26-2023 11:54-0400 Systolic blood pressure 141 mm[Hg] Jhon Rosado MD Work Phone: [facility] 10-01-2023 13:03-0400 Body height 180.34 cm DO Padilla Esterzach Work Phone: [facility] 10-01-2023 13:03-0400 Body mass index (BMI) [Ratio] 31.6 kg/m2 DO Randy Furlong Work Phone: [facility] 10-01-2023 13:03-0400 Body weight 102.96 kg DO Randy Furlong Work Phone: [facility] 10-01-2023 13:03-0400 Diastolic blood pressure 62 mm[Hg] DO Randy Furlong Work Phone: [facility] 10-01-2023 13:03-0400 Heart rate 80 /min DO Randy Furlong Work Phone: [facility] 10-01-2023 13:03-0400 Respiratory rate 18 /min DO Randy Furlong Work Phone: [facility] 10-01-2023 13:03-0400 SaO2% (BldA) [Mass fraction] 100 % DO Randy Furlong Work Phone: [facility] 10-01-2023 13:03-0400 Systolic blood pressure 113 mm[Hg] DO Randy Furlong Work Phone: [facility] 04-28-2023 08:07-0500 Body height 180.3 cm Christy He MD Work Phone: [facility] 04-28-2023 08:07-0500 Body mass index (BMI) [Ratio] 30.42 kg/m2 Christy He MD Work Phone: [facility] 04-28-2023 08:07-0500 Body weight 98.88 kg Christy He MD Work Phone: [facility] 04-28-2023 08:07-0500 Diastolic blood pressure 80 mm[Hg] Christy He MD Work Phone: [facility] 04-28-2023 08:07-0500 Heart rate 74 /min Christy He MD Work Phone: [facility] 04-28-2023 08:07-0500 Respiratory rate 16 /min Christy He MD Work Phone: [facility] 04-28-2023 08:07-0500 Systolic blood pressure 120 mm[Hg] Christy He MD Work Phone: [facility] 04-10-2023 15:17-0500 Blood Pressure Location Sandrita NILL [facility] [place] 04-10-2023 15:17-0500 Diastolic blood pressure 80 mm[Hg] Sandrita NILL [facility] [place] 04-10-2023 15:17-0500 Heart rate 72 /min Sandrita NILL [facility] [place] 04-10-2023 15:17-0500 Respiratory rate 16 /min Sandrita NILL [facility] [place] 04-10-2023 15:17-0500 Systolic blood pressure 116 mm[Hg] Sandrita NILL [facility] 04-02-2023 11:41-0500 Body mass index (BMI) [Ratio] 30.68 kg/m2 Evan Jay DO Work Phone: [facility] 04-02-2023 11:41-0500 Body weight 99.79 kg Evan Jay DO Work Phone: [facility] 04-02-2023 11:41-0500 Diastolic blood pressure 72 mm[Hg] Evan Jay DO Work Phone: [facility] 04-02-2023 11:41-0500 Systolic blood pressure 124 mm[Hg] Evan Jay DO Work Phone: [facility] 09-29-2022 14:29-0400 Body height 180.34 cm Randy Normanlong Work Phone: [facility] 250 DO Work Phone: 09-29-2022 14:29-0400 Body mass index (BMI) [Ratio] 31.52 kg/m2 Randy G Furlong Work Phone: [facility] 250 DO Work Phone: 09-29-2022 14:29-0400 Body surface area Derived from formula 2.22 m2 Randy Ella Furlong Work Phone: [facility] 250 DO Work Phone: 09-29-2022 14:29-0400 Body weight 102.51 kg Randy Ella Furlong Work Phone: [facility] 250 DO Work Phone: 09-29-2022 14:29-0400 Diastolic blood pressure 88 mm[Hg] Randy Mckee Furlong Work Phone: [facility] 250 DO Work Phone: 09-29-2022 14:29-0400 Heart rate 76 /min Randy Ella Furlong Work Phone: [facility] 250 DO Work Phone: 09-29-2022 14:29-0400 Systolic blood pressure 138 mm[Hg] Randy G Furlong Work Phone: [facility] 250 DO Work Phone: 09-12-2022 14:56-0400 Body height 180.34 cm Randy G Furlong Work Phone: [facility] 250 DO Work Phone: 09-12-2022 14:56-0400 Body mass index (BMI) [Ratio] 30.96 kg/m2 Randy G Furlong Work Phone: [facility] 250 DO Work Phone: 09-12-2022 14:56-0400 Body surface area Derived from formula 2.2 m2 Randy G Furlong Work Phone: [facility] 250 DO Work Phone: 09-12-2022 14:56-0400 Body weight 100.7 kg Randy G Furlong Work Phone: [facility] 250 DO Work Phone: 09-12-2022 14:56-0400 Diastolic blood pressure 88 mm[Hg] Randy G Furlong Work Phone: [facility] 250 DO Work Phone: 09-12-2022 14:56-0400 Heart rate 78 /min Randy G Furlong Work Phone: [facility] 250 DO Work Phone: 09-12-2022 14:56-0400 Systolic blood pressure 132 mm[Hg] Randy G Furlong Work Phone: [facility] 250 DO Work Phone: 08-22-2022 09:47-0400 Diastolic blood pressure 100 mm[Hg] Randy G Furlong Work Phone: [facility] 250 DO Work Phone: 08-22-2022 09:47-0400 Systolic blood pressure 142 mm[Hg] Randy G Furlong Work Phone: [facility] 250 DO Work Phone: 08-22-2022 09:46-0400 Body height 180.34 cm Randy G Furlong Work Phone: [facility] 250 DO Work Phone: 08-22-2022 09:46-0400 Body mass index (BMI) [Ratio] 30.68 kg/m2 Randy G Furlong Work Phone: [facility] 250 DO Work Phone: 08-22-2022 09:46-0400 Body surface area Derived from formula 2.2 m2 Randy G Furlong Work Phone: [facility] 250 DO Work Phone: 08-22-2022 09:46-0400 Body weight 99.79 kg Randy G Furlong Work Phone: [facility] 250 DO Work Phone: 08-22-2022 09:46-0400 Diastolic blood pressure 102 mm[Hg] Randy G Furlong Work Phone: [facility] 250 DO Work Phone: 08-22-2022 09:46-0400 Heart rate 74 /min Randy G Furlong Work Phone: [facility] 250 DO Work Phone: 08-22-2022 09:46-0400 Systolic blood pressure 148 mm[Hg] Randy G Furlong Work Phone: [facility] 250 DO Work Phone: 07-21-2022 08:15-0400 Diastolic blood pressure 88 mm[Hg] Randy G Furlong Work Phone: [facility] DO Work Phone: 07-21-2022 08:15-0400 Systolic blood pressure 122 mm[Hg] Randy G Furlong Work Phone: [facility] 250 DO Work Phone: 07-21-2022 08:14-0400 Body height 180.34 cm Randy G Furlong Work Phone: [facility] 250 DO Work Phone: 07-21-2022 08:14-0400 Body mass index (BMI) [Ratio] 30.82 kg/m2 Randy Normanlong Work Phone: [facility] 250 DO Work Phone: 07-21-2022 08:14-0400 Body surface area Derived from formula 2.2 m2 Randy Normanlong Work Phone: [facility] 250 DO Work Phone: 07-21-2022 08:14-0400 Body weight 100.25 kg Randy Cantung Work Phone: [facility] 250 DO Work Phone: 07-21-2022 08:14-0400 Diastolic blood pressure 86 mm[Hg] Randy Normanlong Work Phone: [facility] DO Work Phone: 07-21-2022 08:14-0400 Heart rate 59 /min Randy Normanlong Work Phone: [facility] DO Work Phone: 07-21-2022 08:14-0400 Systolic blood pressure 132 mm[Hg] Randy Normanlong Work Phone: [facility] DO Work Phone: 07-14-2022 14:02-0400 Body temperature 99.32 [degF] Reid Bauer [facility] 07-14-2022 14:02-0400 Diastolic blood pressure 86 mm[Hg] Reid Bauer [facility] 07-14-2022 14:02-0400 Heart rate 76 /min Reid Bauer [facility] 07-14-2022 14:02-0400 SaO2% (BldA) [Mass fraction] 98 % Reid Bauer [facility] 07-14-2022 14:02-0400 Systolic blood pressure 120 mm[Hg] Reid Bauer [facility] 11-11-2021 19:25-0400 Body height 180.34 cm Jesusita Gee Other [facility] Other 11-11-2021 19:25-0400 Body mass index (BMI) [Ratio] 28.59 kg/m2 Jesusita Chirinosault Other [facility] Other 11-11-2021 19:25-0400 Body temperature 98.1 [degF] Jesusita Chirinosault Other [facility] Other 11-11-2021 19:25-0400 Body weight 92.99 kg Jesusita Gee Other [facility] Other 11-11-2021 19:25-0400 Respiratory rate 18 /min Jesusita Chirinosault Other [facility] Other 11-11-2021 19:25-0400 SaO2% (BldA) [Mass fraction] 96 % Jesusita Chirinosault Other [facility] Other Encounters Encounter Date Encounter Type Care Provider Facility Start: 02-02-2024 ambulatory Randy Calle Facility :[facility] Start: 02-01-2024 End: 02-01-2024 ambulatory YVES SOLIS Not Available Start: 02-01-2024 End: 02-01-2024 Bamboo flowsheet Yves Solis MD Work Phone: [facility] Start: 02-01-2024 End: 02-01-2024 Bamboo flowsекатерина Solis MD Work Phone: [facility] Start: 01-27-2024 End: 01-27-2024 Bamboo flowsекатерина Solis MD Work Phone: [facility] Start: 01-27-2024 End: 01-27-2024 Bamboo flowsекатерина Solis MD Work Phone: [facility] Start: 01-27-2024 End: 01-27-2024 ambulatory YVES SOLIS Not Available Start: 01-26-2024 End: 01-27-2024 Patient encounter procedure Yves Solis MD Work Phone: [facility] Comment on above: Anaphylaxis, subsequ ent encounter (Primary Dx) Start: 01-25-2024 End: 01-25-2024 Millerboo anjel Solis MD Work Phone: [facility] Start: 01-25-2024 End: 01-25-2024 Bamboo anjel Solis MD Work Phone: [facility] Start: 01-25-2024 End: 01-25-2024 Office outpatient new 60 minutes Yves Solis MD Work Phone: [facility] Comment on above: Adverse effect of do xycycline, initial encounter (Primary Dx) Start: 01-25-2024 End: 01-25-2024 ambulatory YVES SOLIS Not Available Start: 01-15-2024 End: 01-15-2024 ambulatory GENERIC RESEARCH [facility] Start: 01-15-2024 End: 01-15-2024 ambulatory [facility] Start: 12-30-2023 End: 12-30-2023 Bamboo flowsекатерина Justice DO Work Phone: [facility] Start: 12-30-2023 End: 12-30-2023 Bamboo flowsheet Georgiana Justice DO Work Phone: [facility] Start: 12-30-2023 End: 12-30-2023 ambulatory GE[facility]NA JUSTICE Not Available Start: 12-30-2023 End: 12-30-2023 Office outpatient new 45 minutes Georgiana Justice DO Work Phone: [facility] Comment on above: Retinal tear of righ t eye (Primary Dx); Vitreous hemorrhage of right eye (CMS/HCC) Start: 12-30-2023 End: 12-30-2023 ambulatory SCOTT [facility] Start: 12-29-2023 Registered Recurring DO Randy Furlong Work Phone: [facility] Work Phone: Start: 12-29-2023 End: 12-29-2023 ambulatory DO Randylinnea Normanlong Work Phone: [facility] Work Phone: Start: 12-29-2023 End: 12-29-2023 Patient encounter procedure DO Randylinnea Normanlong [facility] Work Phone: Start: 12-29-2023 End: 12-29-2023 ambulatory MARISELA A [facility] Start: 12-29-2023 End: 12-29-2023 Postop follow up visit related to original px Shereen Smallwood PA-C Work Phone: [facility] Comment on above: Infection of deep in cisional surgical site after procedure, subsequent encounter (Primary Dx); Malignant neoplasm of lower-inner quadrant of right breast of female, estrogen receptor positive (CMS-HCC) Start: 12-28-2023 End: 12-28-2023 Emergency department patient visit Rusty Horton [facility] Start: 12-21-2023 End: 12-21-2023 ambulatory MARISELA Yumi [facility] Start: 12-21-2023 End: 12-21-2023 Postop follow up visit related to original monalisa Cuevas FLUOROSCOPE OPERATOR-GARMENT STEAMER Work Phone: [facility] Comment on above: Encounter for postop erative care (Primary Dx); Acquired absence of breast, bilateral; S/P breast reconstruction, bilateral Start: 12-16-2023 End: 12-16-2023 Telephone encounter Deborah Wills CMA [facility] Start: 12-14-2023 End: 12-14-2023 Postop follow up visit related to original px Marisela Cuevas FLUOROSCOPE OPERATOR-GARMENT STEAMER Work Phone: [facility] Comment on above: Encounter for postop erative care (Primary Dx); Acquired absence of breast, bilateral; S/P breast reconstruction, bilateral; Infection of breast implant, subsequent encounter Malignant neoplasm o f lower-inner quadrant of right breast of female, estrogen receptor positive (CMS-HCC) (Primary Dx) Start: 12-14-2023 End: 12-14-2023 [facility] Start: 12-11-2023 End: 12-14-2023 Telephone encounter Mela Berrios RN [facility] Internal Medicine - Family Medicine Comment on above: Transition Of Care Start: 12-11-2023 End: 12-11-2023 ambulatory [facility] Start: 12-09-2023 End: 12-09-2023 Telephone encounter Nabila Mora CMA [facility] Start: 12-08-2023 End: 12-08-2023 Orders Only Gino Munguia FLUOROSCOPE OPERATOR-GARMENT STEAMER Work Phone: [facility] Comment on above: Acid fast bacillus ( Primary Dx); 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 Start: 12-05-2023 End: 12-09-2023 Evaluation and management of inpatient LILIANE Courtney VALLE [facility] Start: 12-04-2023 End: 12-09-2023 Evaluation and management of inpatient EPIFANIO HENRY [facility] Start: 12-03-2023 End: 12-03-2023 Orders Only Gino Munguia FLUOROSCOPE OPERATOR-GARMENT STEAMER Work Phone: [facility] Comment on above: Acid fast bacillus ( Primary Dx) Start: 12-02-2023 End: 12-09-2023 Evaluation and management of inpatient Kayleigh Adames DO Work Phone: [facility] - 7 Oncology/Stroke Comment on above: MIRNA (acute kidney in jury) ([facility]-HCC) (Primary Dx); Infection of deep incisional surgical site after procedure, initial encounter; 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; Infection of deep incisional surgical site after procedure, subsequent encounter Start: 12-02-2023 End: 12-02-2023 Documentation procedure Shanice Shook FLUOROSCOPE OPERATOR-GARMENT STEAMER Work Phone: [facility] Start: 12-02-2023 End: 12-02-2023 Telephone encounter Elisa Vallejo RN [facility] Internal Medicine - Family Medicine Comment on above: Transition Of Care Fever Start: 12-02-2023 End: 12-02-2023 ambulatory JHON ROSADO [facility] Start: 12-02-2023 End: 12-02-2023 Postop follow up visit related to original px Jhon Rosado MD Work Phone: [facility] Comment on above: Encounter for postop erative care (Primary Dx); Acquired absence of breast, bilateral; S/P breast reconstruction, bilateral; Infection of breast implant, subsequent encounter Start: 12-01-2023 End: 12-01-2023 ambulatory DO [employer] Work Phone: [facility] Work Phone: Start: 12-01-2023 End: 12-01-2023 Patient encounter procedure DO [employer] Work Phone: [facility] Work Phone: Start: 11-30-2023 End: 11-30-2023 [facility] Start: 11-26-2023 End: 11-30-2023 ambulatory JHON ROSADO [facility] Start: 11-26-2023 End: 11-26-2023 Postop follow up visit related to original px Jhon Rosado MD Work Phone: [facility] Comment on above: Cellulitis of left b reast (Primary Dx); S/P breast reconstruction, bilateral Start: 11-26-2023 End: 11-26-2023 ambulatory JHON ROSADO [facility] Start: 11-25-2023 End: 11-25-2023 [facility] Start: 11-25-2023 End: 11-25-2023 [facility] Start: 11-18-2023 End: 11-18-2023 [facility] Start: 11-11-2023 End: 11-11-2023 [facility] Start: 11-04-2023 End: 11-04-2023 [facility] Start: 10-30-2023 End: 10-30-2023 [facility] Start: 10-28-2023 End: 10-30-2023 Evaluation and management of inpatient CHRISTY A HE [facility] Start: 10-28-2023 End: 10-29-2023 ambulatory [facility] Start: 10-28-2023 End: 10-30-2023 Evaluation and management of inpatient CHRISTY A HE [facility] Start: 10-27-2023 End: 10-27-2023 ambulatory [facility] Start: 10-16-2023 End: 10-16-2023 ambulatory Althea Miller [facility] Start: 10-16-2023 End: 10-16-2023 ambulatory CHRISTY A [facility] Start: 10-01-2023 End: 10-01-2023 ambulatory DO Randylinnea Normanlong Work Phone: [facility] Work Phone: Start: 10-01-2023 End: 10-01-2023 Patient encounter procedure DO Randylinnea Normanlong Work Phone: [facility] Work Phone: Start: 10-01-2023 Registered Recurring DO Randylinnea Normanlong Work Phone: [facility] Acute Work Phone: Start: 09-04-2023 End: 09-04-2023 ambulatory [facility] Start: 08-31-2023 End: 08-31-2023 ambulatory [facility] Start: 08-20-2023 End: 08-20-2023 ambulatory JHON CHEEMA [facility] Start: 07-30-2023 End: 07-30-2023 ambulatory [facility] Start: 06-04-2023 End: 06-04-2023 ambulatory Sandrita WILLETT Facility:[facility] Start: 06-04-2023 End: 06-04-2023 Patient encounter procedure Sandrita WILLETT [facility] General [facility] [place] Start: 06-01-2023 End: 06-01-2023 ambulatory EVAN THOMPSON Not Available Start: 05-26-2023 Patient encounter procedure Georgiana Justice DO Work Phone: [facility] Start: 05-26-2023 ambulatory BRITTANI MICHAEL Facility:[facility] Start: 05-21-2023 Admission to [facility] Yue Tellez FLUOROSCOPE OPERATOR-[facility] Work Phone: [facility] Start: 05-21-2023 ambulatory Yue Rossi lman FLUOROSCOPE OPERATOR-GARMENT STEAMER Work Phone: [facility] Start: 05-14-2023 Telephone encounter Niurka Stockton RN [facility] [place] [facility] Start: 05-13-2023 End: 05-13-2023 ambulatory Sandrita R NILL Facility:[facility] Start: 05-12-2023 Telephone encounter [facility]ke [facility]vin [facility] [place] [facility] Start: 05-08-2023 Documentation procedure Niurka dorman [facility] [place] [facility] Start: 05-08-2023 End: 05-08-2023 ambulatory JOHN [facility] Start: 05-08-2023 End: 05-08-2023 ambulatory [facility] Start: 05-08-2023 End: 05-08-2023 ambulatory [facility] Start: 04-28-2023 End: 04-28-2023 ambulatory [facility] Start: 04-28-2023 End: 04-28-2023 Office outpatient new 60 minutes Christy He MD Work Phone: [facility] Comment on above: Malignant neoplasm o f lower-inner quadrant of right breast of female, estrogen receptor positive ([facility]-HCC) (Primary Dx); Mass of lower inner quadrant of right breast Start: 04-24-2023 End: 04-24-2023 ambulatory [facility] Start: 04-14-2023 End: 04-14-2023 ambulatory [facility] Start: 04-10-2023 End: 04-10-2023 ambulatory Sandrita R NILL Facility:[facility] Start: 04-10-2023 End: 04-10-2023 Patient encounter procedure Sandrita WILLETT General Surgery N[facility]/Said Suzanne Start: 04-10-2023 End: 04-10-2023 ambulatory CHRISTY HE [facility] Start: 04-10-2023 ambulatory RICHIE HANNA [facility] Start: 04-06-2023 End: 04-06-2023 ambulatory Chantal Bear Facility[facility] Start: 04-06-2023 End: 04-06-2023 Patient encounter procedure Chantal Bear [facility] Start: 04-02-2023 End: 04-02-2023 ambulatory EVAN MORAO Not Available Start: 04-02-2023 End: 04-02-2023 Office outpatient visit 15 minutes Evan Morao DO Work Phone: [facility] Comment on above: Mammogram abnormal; Invasive ductal carcinoma of breast, right ([facility]/HCC) Start: 03-26-2023 End: 03-26-2023 ambulatory DO Randy Calle Work Phone: [facility] Work Phone: Start: 03-26-2023 End: 03-26-2023 Departed Referred DO Randy Calle Work Phone: [facility] Path [facility] Start: 03-20-2023 End: 03-20-2023 ambulatory BRITTANI MICHAEL Facility[facility] Start: 03-20-2023 End: 03-20-2023 Patient encounter procedure BRITTANI MICHAEL [facility] Start: 10-15-2022 Chart Update Randy stewart Work Phone: [facility] 250 DO Work Phone: Start: 10-14-2022 ambulatory BRITTANI MICHAEL Facili ty:[id number] Start: 09-29-2022 Patient encounter procedure [facility]: [facility] Work Phone: Start: 09-29-2022 ambulatory Ms. Brittani Michael Facility: Start: 09-12-[address] Shanon Harrison II Facility: Start: 09-12-2022 Office outpatient vi sit 5 minutes Randy Cantung Work Phone: [facility] 250 DO Work Phone: Start: 08-22-[address] Shanon Harrison II Facility: Start: 08-22-2022 Office outpatient vi sit 5 minutes Randy Normanlong Work Phone: [facility] 250 DO Work Phone: Start: 08-18-2022 Chart Update Randy Cantu ng Work Phone: [facility] 250 DO Work Phone: Start: 08-15-2022 End: 08-15-2022 Patient encounter procedure Shanon Harrison [facility] Start: 07-21-[address] Shanon Harrison II Facility: Start: 07-14-2022 End: 07-14-2022 Patient encounter procedure Reid Bauer [facility] Start: 12-27-2021 End: 12-27-[address] DAYANA BASHIR Facility:[facility] Start: 12-13-2021 End: 12-14-[address] KAYE JARQUIN Facility:[facility] Start: 11-22-2021 End: 11-22-2021 ambulatory Hua Oglesby Facility:[facility] Start: 11-11-2021 End: 11-11-2021 ambulatory Jesusita Gee Other [place] [employer] Other Start: 11-11-2021 Office outpatient vi sit 15 minutes Jesusita Gee [facility] Start: 08-26-2021 End: 08-28-2021 ambulatory Hua Kraus Buhler Facility:[facility] Start: 08-22-2021 End: 08-22-2021 ambulatory [facility] Facility:[facility] Start: 08-13-2021 End: 08-13-2021 ambulatory [facility] Facility:[facility] Start: 01-21-2021 End: 01-21-2021 ambulatory [facility] Facility:[facility] Start: 01-04-2021 End: 01-05-2021 ambulatory [facility] Facility: [facility] Procedures Date Procedure Procedure Detail Performing Clinician Start: 12-09-2023 Comprehensive metabo lic panel Chris DUFFY-C Work Phone: Start: 12-08-2023 Potassium serum plasma/whole blood Amy Jack MD Work Phone: Start: 12-08-2023 Assay of magnesium Amy dennison MD Work Phone: Start: 12-08-2023 Comprehensive metabo lic panel Chris DUFFY-C Work Phone: Start: 12-07-2023 Comprehensive metabo lic panel Chris DUFFY-C Work Phone: Start: 12-06-2023 Assay of magnesium Oliv ia Courtney Valle FLUOROSCOPE OPERATOR-GARMENT STEAMER Work Phone: Start: 12-06-2023 Urnls dip stick/tabl et rgnt auto w/o microscopy Liliane Courtney Valle FLUOROSCOPE OPERATOR-GARMENT STEAMER Work Phone: Start: 12-06-2023 Comprehensive metabo lic panel Chris DUFFY-C Work Phone: Start: 12-05-2023 Assay of magnesium Oliv ia Courtney Valle FLUOROSCOPE OPERATOR-GARMENT STEAMER Work Phone: Start: 12-05-2023 Radiologic exam ches t single view Liliane Valle FLUOROSCOPE OPERATOR-GARMENT STEAMER Work Phone: Start: 12-05-2023 RESP PATHOGENS PANEL/SARS-COV-2 Liliane Vadlez Niranjan FLUOROSCOPE OPERATOR-GARMENT STEAMER Work Phone: Start: 12-05-2023 End: 12-05-2023 Culture bacterial blood aerobic w/id isolates Carlene Noguera MD Work Phone: Start: 12-05-2023 Comprehensive metabo lic panel Chris BURRISC Work Phone: Start: 12-04-2023 Cyanocobalamin vitam in b-12 Elayne Chow MD Work Phone: Start: 12-04-2023 Us retroperitoneal r eal time w/image complete Epifanio Henry MD Work Phone: Start: 12-04-2023 Comprehensive metabo lic panel Chris BURRISC Work Phone: Start: 12-03-2023 Assay of urine sodium R shena Henry MD Work Phone: Start: 12-03-2023 Urnls dip stick/tabl et rgnt auto w/o microscopy Epifanio Henry MD Work Phone: Start: 12-03-2023 Antinuclear antibodi es justin Epifanio Henry MD Work Phone: Start: 12-03-2023 Creatine kinase total R shena Henry MD Work Phone: Start: 12-03-2023 Assay of magnesium Radha irwin Courtney Niranjan FLUOROSCOPE OPERATOR-GARMENT STEAMER Work Phone: Start: 12-03-2023 Ecg routine ecg w/le ast 12 lds trcg only w/o i&r Carlene Noguera MD Work Phone: Start: 12-03-2023 Comprehensive metabo lic panel Chris BURRISC Work Phone: Start: 12-03-2023 DIFFERENTIAL ADD ON USE ONLY Chris BURRISC Work Phone: Start: 12-03-2023 Drug screen quantita tive vancomycin Chris Mcmullen PA-C Work Phone: Start: 12-02-2023 End: 12-02-2023 Culture bacterial quanttative colony count urine Kayleigh Edmonds Odilia DO Work Phone: Start: 12-02-2023 Urnls dip stick/tabl et rgnt auto w/o microscopy Kayleigh Edmonds Odilia DO Work Phone: Start: 12-02-2023 End: 12-02-2023 Comprehensive metabolic panel Kayleigh Edmonds Odilia DO Work Phone: Start: 10-16-2023 Mammography Georgiana bangura DO Work Phone: Start: 07-30-2023 Follow-up visit Follow-up CHRISTY HE Start: 03-07-2022 Adult depression screening assessment Niurka Stockton RN Start: 12-27-2021 Mammography Evan Fazi o DO Work Phone: Start: 12-27-2021 Microscopic observat ion [Identifier] in Cervix by Cyto stain Georgiana Justice DO Work Phone: Start: 03-02-2005 Hysterectomy Reid mcfarland Abdominal hysterectomy [facility] Man[employer] Biopsy of breast Sandrita Thomas Chondrectomy of semi lunar cartilage of knee [facility] [employer] Core needle biopsy o f breast using ultrasound guidance [facility] [employer] Excision of breast Rusty Delilah mcgowan Excisional biopsy of breast Randy Normanalannaterry Work Phone: Hysterectomy Randy Normanrome ella Work Phone: Insertion of implant able venous access port Sandrita WILLETT Lipoma of back (disorder) Cleve Bauer Repair of anterior cruciate ligament of knee joint Moghazala Bear Tonsillectomy Moghazala Watson lssi Transurethral cystoscopy Haydeekarolyn Bear NEGATED: Highlighted row has not occurred! Total colonoscopy Randy Calle Work Phone: Plan of Treatment Date Care Activity Detail Author Start: 07-08-2027 DTaP,Tdap and Td Vaccines (2 - Td or Tdap) DTaP,Tdap and Td Vaccines (2 - Td or Tdap) [facility] Start: 12-27-2026 Screening for malignant neoplasm of cervix [facility] Start: 12-13-2024 Adult BMI Screening [facility] Start: 12-13-2024 Tobacco Screening [facility] Start: 12-04-2024 Adult BMI Screening Adult BMI Screening [facility] Start: 12-02-2024 Adult BMI Screening Adult BMI Screening [facility] Start: 12-01-2024 Adult BMI Screening Adult BMI Screening [facility] Start: 12-01-2024 Tobacco Screening Tobacco Screening [facility] Start: 10-15-2024 Screening for malignant neoplasm of breast Mammogram [facility] Start: 06-06-2024 Screening for malignant neoplasm of colon [facility] Start: 06-01-2024 End: 06-01-2024 Patient encounter procedure 06/01/2024 11:00 AM EDT Office Visit [facility] [address] [place] [address] Evan Thompson DO [address] [place], [place] [id number] [facility] Start: 05-05-2024 Adult BMI Screening Adult BMI Screening [facility] Start: 04-28-2024 Tobacco Screening Tobacco Screening [facility] Start: 03-15-2024 End: 03-15-2024 Patient encounter procedure [facility] Start: 02-15-2024 End: 02-15-2024 Patient encounter procedure 02/15/2024 3:30 PM EST Consult [facility] [address] [place] [address] Evan Thompson DO [address] [facility] [address] [place] [address] [facility] Start: 01-25-2024 End: 01-25-2024 Patient encounter procedure 01/25/2024 10:00 AM EST Office Visit [facility] [address] [place] [phone] Yves Solis MD [address] [facility] [address] [place] [address] Arrived [facility] Comment on above: Arrived Start: 12-21-2023 End: 12-21-2023 Patient encounter procedure 12/21/2023 1:30 PM EDT Office Visit [facility] [address] [facility] [address] [place] [address] Marisela Cuevas, FLUOROSCOPE OPERATOR-GARMENT STEAMER [address] [place] [address] [facility] Start: 12-15-2023 End: 12-15-2023 Patient encounter procedure 12/15/2023 10:30 AM EDT Office Visit [facility] [address] [place] [address] Marisela Cuevas, FLUOROSCOPE OPERATOR-GARMENT STEAMER [address] [place] [address] [facility] Start: 12-14-2023 End: 12-14-2023 Patient encounter procedure 12/14/2023 2:00 PM EDT Office Visit [facility] [address] [facility] [address] [place] [phone] Suzette Mason PA [address] [facility] [place] [address] [facility] Start: 12-08-2023 End: 12-08-2023 Patient encounter procedure [facility] Start: 12-01-2023 Patient referral [facility] Work Phone: Start: 11-01-2023 COVID-19 Vaccine ( season) COVID-19 Vaccine ( season) [facility] Start: 11-01-2023 COVID-19 Vaccine ( season) COVID-19 Vaccine ( season) [facility] Start: 11-01-2023 Influenza vaccination [facility] Start: 07-30-2023 End: 07-30-2023 Patient encounter procedure 07/30/2023 3:00 PM EDT Office Visit [facility] [address] [facility] [address] [place] [address] Christy He MD [address] [facility], [facility] [address] [place] [phone] [facility] Start: 06-01-2023 End: 06-01-2023 Patient encounter procedure 06/01/2023 1:30 PM EDT Office Visit [facility] [address] [facility] [place] [address] Evan Thompson DO [address] [place], [place] [id number] [facility] Start: 04-08-2023 FUV, Provider: Shanon Harrison, Status: Pen, Time: 2:50 PM FUV, Provider: Shanon Harrison, Status: Pen, Time: 2:50 PM [facility] 250 DO Work Phone: Start: 03-07-2023 Depression Screening Depression Screening [facility] Start: 12-27-2022 Screening for malignant neoplasm of breast Mammogram [facility] Start: 10-31-2022 COVID-19 Vaccine ( season) COVID-19 Vaccine () [facility] Start: 10-31-2022 Influenza vaccination [facility] Start: 09-29-2022 FUV, Provider: Brittani Avalos, Status: Pen, Time: 2:30 PM FUV, Provider: Brittani Avalos, Status: Pen, Time: 2:30 PM [facility] 250 DO Work Phone: Start: 09-18-2022 FUV, Provider: Shanon Harrison, Status: Pen, Time: 9:10 AM FUV, Provider: Shanon Harrison, Status: Pen, Time: 9:10 AM [facility] 250 DO Work Phone: Start: 09-12-2022 BPLM, Provider: ASHLEIGH MURGUIA RECORDS ASSISTANT 1,[id number], Status: Pen, Time: 9:00 AM BPLM, Provider: ASHLEIGH MURGUIA RECORDS ASSISTANT 1,[id number], Status: Pen, Time: 9:00 AM [facility] 250 DO Work Phone: Start: 08-22-2022 BPLM, Provider: ASHLEIGH MURGUIA RECORDS ASSISTANT 1,[id number], Status: Pen, Time: 9:00 AM BPCHEJENN, Provider: ASHLEIGH MURGUIA RECORDS ASSISTANT 1,[id number], Status: Pen, Time: 9:00 AM [facility] 250 DO Work Phone: Start: 2000 Screening for malignant neoplasm of cervix [facility] Start: 10-11-1991 Screening for malignant neoplasm of cervix Pap Smear [facility] Start: 1989 Administration of varicella zoster vaccine Zoster (Shingles) Vaccine (1 of 2) [email or web address] Start: 1988 Adult BMI Follow Up Plan Adult BMI Follow [facility] Plan [facility] Start: 1970 Screening for malignant neoplasm of colon [facility] Bacteria identified in Blood by Aerobe culture [employer] Work Phone: End: 12-08-2024 CBC W Auto Differential panel - Blood CBC auto differential Lab Routine Infection of deep incisional surgical site after procedure, initial encounter Infection of deep incisional surgical site after procedure, subsequent encounter weekly for 4 Occurrences starting 12/09/2023 until 12/08/2024 [employer] Work Phone: Comment on above: weekly for 4 Occurrences starting 2023 until 12/08/2024 End: 12-08-2024 Comprehensive metabolic 2000 panel - Serum or Plasma Comprehensive metabolic panel Lab Routine Infection of deep incisional surgical site after procedure, initial encounter Infection of deep incisional surgical site after procedure, subsequent encounter weekly for 4 Occurrences starting 12/09/2023 until 12/08/2024 [facility] Comment on above: weekly for 4 Occurrences starting 2023 until 12/08/2024 Computed tomography for radiotherapy planning [facility] CT with contrast for radiotherapy planning [facility] Patient referral [facility] Work Phone: Immunizations Immunization Date Immunization Notes Care Provider Fa cility 12-06-2020 Covid-19, Mrna, Lnp-s, Pf, 30 Mcg/0.3 Ml Dose, Winston-sucrose Niurka Stockton RN [facility] 12-06-2020 SARS-CoV-2 (COVID-19 ) mRNA BNT-162b2 cyn Bauer [facility] Comment on above: Result Comment: 2022: [id number] 12-06-2020 SARS-COV-2 (COVID-19 ) Vaccine, Unspecified Niurka Stockton RN [email or web address] 11-15-2020 SARS-CoV-2 (COVID-19 ) mRNA BNT-162b2 vax Reid Bauer [facility] Comment on above: Result Comment: 2022: [id number] 11-20-2019 influenza virus vaccine, unspecified formulation Reid Bauer [facility] [place] 11-14-2019 influenza virus vaccine, unspecified formulation Reid Bauer [facility] 11-14-2019 influenza, seasonal, injectable Randy G Furlong Work Phone: [facility] 250 DO Work Phone: 12-13-2018 influenza virus vaccine, unspecified formulation Reid Bauer [facility] 12-13-2018 influenza, seasonal, injectable Randy G Furlong Work Phone: [facility] 250 DO Work Phone: 12-10-2017 influenza virus vaccine, unspecified formulation Reid Bauer [facility] 12-10-2017 influenza, injectable, quadrivalent, contains preservative Randy G Furlong Work Phone: [facility] 250 DO Work Phone: 07-07-2017 tetanus toxoid, reduced diphtheria toxoid, and acellular pertussis vaccine, adsorbed Reid Bauer [facility] 01-19-2017 influenza virus vaccine, unspecified formulation Reid Bauer [facility] 01-19-2017 influenza, injectable, quadrivalent, contains preservative Randy G Furlong Work Phone: [facility] 250 DO Work Phone: 01-07-2016 influenza virus vaccine, unspecified formulation Reid Bauer [facility] 01-07-2016 influenza, injectable, quadrivalent, contains preservative Randy G Furlong Work Phone: [place] [address] DO Work Phone: 12-01-2015 influenza virus vaccine, unspecified formulation Randy G Furlong Work Phone: [facility] 250 DO Work Phone: 12-01-2015 influenza, unspecified formulation Reid Bauer [facility] 12-27-2014 influenza virus vaccine, unspecified formulation Reid Bauer [facility] 12-27-2014 influenza, injectable, quadrivalent, contains preservative Randy G Furlong Work Phone: [place] [address] DO Work Phone: 12-06-2014 influenza, seasonal, injectable Niurka Stockton RN [facility] 01-05-2014 influenza virus vaccine, unspecified formulation Reid Bauer [facility] 01-05-2014 influenza, injectable, quadrivalent, contains preservative Randy G Furlong Work Phone: [place] [address] DO Work Phone: 12-29-2012 influenza virus vaccine, unspecified formulation Reid Bauer [facility] 12-29-2012 influenza, seasonal, injectable Randy G Furlong Work Phone: [place] [address] DO Work Phone: 01-17-2009 novel [id number], preservative-free, injectable Ranyd G Furlong Work Phone: [facility] 250 DO Work Phone: NEGATED: Highlighted row has not occurred!04-10-2023 influenza virus vaccine, unspecified formulation Sandrita WILLETT [facility] [place] Payers Date Payer Category Payer Medicaid HMO [facility] MEDICA[facility] [id number] 2023 Private Health Insurance [id number] 2023 Self-pay [id number] 2023 Medicaid [id number] 2023 Medicaid [id number] 2016 Unknown [id number] 1970 Unknown [id number] 2.16.840.1.596614.3.579. 2. 1970 Unknown [id number] 2.16.840.1.847727.3.579. 2. 1970 Unknown [id number] 2.16.840.1.235510.3.579. 2. 1970 Unknown [id number] 2.16.840.1.563795.3.579. 2.718 1970 Unknown [id number] 2.16.840.1.661140.3.579. 2.718 1970 Unknown [id number] 2.16.840.1.319308.3.579. 2. 1970 Unknown [id number] 2.16.840.1.218788.3.579. 2.71 1970 Unknown [id number] 2.16.840.1.474494.3.579. 2.593 1970 Unknown [id number] 2.16.840.1.125964.3.579. 2.593 1970 Unknown [id number] 2.16840.1.606039.3.579. 2.356 1970 Unknown [id number] 2.16840.1.739204.3.579. 2.356 1970 Unknown [id number] 2.16840.1.714538.3.579. 2.356 1970 Unknown [id number] 2.16840.1.620841.3.579. 2.356 1970 Unknown [id number] 2.16840.1.289292.3.579. 2.1068 1970 Unknown [id number] 2.16840.1.100019.3.579. 2.128 1970 Unknown [id number] 2.16840.1.076760.3.579. 2.1285 1970 Unknown [id number] 2.16840.1.248763.3.579. 2.128 1970 Unknown [id number] 2.16840.1.511060.3.579. 2.1285 1970 Unknown [id number] 2.16.840.1.110027.3.579. 2.1286 1970 Unknown [id number] 2.16840.1.149549.3.579. 2.1286 1971 Unknown [id number] 2.16.840.1.151701.3.579. 2.1285 1970 Unknown [id number] 2.16.840.1.517983.3.579. 2.1244 1970 Unknown [id number] 2.16.840.1.151387.3.579. 2.1285 1970 Unknown [id number] 2.16.840.1.509974.3.579. 2.1285 1970 Unknown [id number] 2..840.1.055147.3.579. 2.1285 1970 Unknown [id number] 2.840.1.271912.3.579. 2.1285 1970 Unknown [id number] 2.840.1.636187.3.579. 2.1285 1970 Unknown [id number] 2.840.1.825866.3.579. 2.1285 1970 Unknown [id number] 2.840.1.123830.3.579. 2.1285 1970 Unknown [id number] 2.840.1.701839.3.579. 2.1285 1970 Unknown [id number] 2.840.1.607980.3.579. 2.1285 1970 Unknown [id number] 2.840.1.113589.3.579. 2.1285 1970 Unknown [id number] 2.840.1.020524.3.579. 2.1285 1970 Unknown [id number] 2.16840.1.727372.3.579. 2.1285 1970 Unknown [id number] 2.16840.1.807298.3.579. 2.1285 1970 Unknown [id number] 2.16.840.1.098618.3.579. 2.727 1970 Unknown [id number] 2.16.840.1.797909.3.579. 2. 1970 Unknown [id number] 2.16.840.1.602032.3.579. 2. 1970 Unknown [id number] 2.16.840.1.732528.3.579. 2. 1970 Unknown [id number] 2.16.840.1.317568.3.579. 2. 1970 Unknown [id number] 2.16.840.1.282562.3.579. 2. 1970 Unknown [id number] 2.16.840.1.598575.3.579. 2.1285 1970 Unknown [id number] 2.16.840.1.937503.3.579. 2.1285 1970 Unknown [id number] 2.16.840.1.434332.3.579. 2.1285 1970 Unknown [id number] 2.16.840.1.634235.3.579. 2.1285 1970 Unknown [id number] 2.16.840.1.991877.3.579. 2.1285 1970 Unknown [id number] 2.16.840.1.042998.3.579. 2.1285 1970 Unknown [id number] 2.16.840.1.811303.3.579. 2.1285 1970 Unknown [id number] 2.16.840.1.915269.3.579. 2.1285 1970 Unknown [id number] 2.16.840.1.018325.3.579. 2.1285 1970 Unknown [id number] 2.16.840.1.595287.3.579. 2.1285 1970 Unknown [id number] 2.16.840.1.721203.3.579. 2.1285 1970 Unknown [id number] 2.16.840.1.968283.3.579. 2.1285 1970 Unknown [id number] 2.16.840.1.266475.3.579. 2.1285 1970 Unknown [id number] 2.16.840.1.546548.3.579. 2.1285 1970 Unknown [id number] 2.16.840.1.330542.3.579. 2.1285 1970 Unknown [id number] 2.16.840.1.457534.3.579. 2.1285 1970 Unknown [id number] 2.16.840.1.912404.3.579. 2.1285 1970 Unknown [id number] 2.16840.1.582639.3.579. 2.1285 1970 Unknown [id number] 2.16.840.1.294821.3.579. 2.1285 1970 Unknown [id number] 2.16.840.1.229085.3.579. 2.1285 1970 Unknown [id number] 2.16.840.1.422683.3.579. 2.1285 1970 Unknown [id number] 2.16.840.1.545195.3.579. 2.1258 1970 Unknown [id number] 2.16.840.1.992172.3.579. 2.1258 1970 Unknown [id number] 2.16.840.1.673683.3.579. 2.1258 1970 Unknown [id number] 2.16.840.1.460385.3.579. 2.1258 1970 Unknown [id number] 2.16.840.1.540007.3.579. 2.1259 1970 Unknown [id number] 2.16.840.1.131369.3.579. 2.1259 1959 Private Health Insurance [id number] 2.16.840.1.712270.19 Unknown Unknown [id number] Unknown Insurance No Card [id number] Unknown [id number] 04.17.840.1.826488.3.579. 2.531 Unknown [id number] 2.16.840.1.330797.3.579. 2.531 Social History Date Type Detail Facility Unknown if ever smoked [facility] Other Start: 01-04-2023 End: 01-27-2024 Sex Assigned At [facility] Start: 07-14-2022 End: 01-25-2024 Tobacco smoking status Never smoked tobacco (finding) [facility] Tobacco smoking status Never [facility] Start: 01-04-2023 End: 01-27-2024 Social alcohol use Social alcohol use [facility] Start: 1970 Sex Assigned At Female [facility] Start: 04-02-2023 End: 02-01-2024 Alcohol intake Lifetime non-drinker (finding) [facility] Start: 01-04-2023 Alcohol Comment Caffeine intake: 1-2 cups per day [facility] Start: 1970 Sex Assigned At Not on file [facility] Start: 04-28-2023 End: 01-25-2024 Tobacco use and exposure Smokeless [facility] Start: 04-28-2023 End: 12-02-2023 Alcohol intake Current drinker of alcohol (finding) [facility] Do you belong to any clubs or organizations such as congregation groups, unions, fraternal or athletic groups, or school groups? Yes [facility] Are you now , , , , never or living with a partner? [facility] How often to you hav e a drink containing alcohol? 2-3 time sa week [facility] How many standard dr inks containing alcohol do you have on a typical day? 1 or 2 [facility] How often do you hav e 6 or more drinks on 1 occasion? Less than monthly [facility] Do you feel stress - tense, restless, nervous, or anxious, or unable to sleep at night because your mind is troubled all the time - these days [OSQ] To some extent [facility] Start: 02-27-2022 Education 21 [facility] Stat [facility] Has the [employer]His Place, or [employer] threatened to shut off services in your home in past 12Mo No [facility] Stat [facility] Start: 10-16-2023 Alcohol Comment Socially [facility] Stat [facility] Start: 10-05-2014 Sex Female (finding) [facility] Medical Equipment Procedure Code Equipment Code Equipment Origin al Text Equipment Identifier Dates [employer] Tiss [id number] Brst 480-575cc Txtr Intgr Port Allox2 - [id number] - [id number] Start: 10-28-2023 [employer] Tiss [id number] Brst 480-575cc Txtr Intgr Port Allox2 - [id number] - [id number] Start: 10-28-2023 Functional Status Date Assessment Result Facility 12-28-2023 Functional Status N/A [facility] 04-10-2023 Functional Status N/A [facility] 07-14-2022 Functional Status N/A [facility] Clinical Notes 01-18-2021 to 01-26-2024 Yves Solis MD - 01/26/2024 11:20 AM Zeeshan Solis MD - 01/25/2024 10:00 AM Maryjo Justice DO - 12/30/2023 1:15 PM Kishan Smallwood PA-C - 12/29/2023 8:30 AM EDT Note Date & Type Note Facility 01-26-2024 History of Present illness Narrative Patient's radiation oncologist contacted me on my personal cell phone and we discussed her situation at length regarding whether doing a desensitization to omadacycline would interfere with her radiation treatments which apparently she is getting every day. I suggested to the radiation oncologist that perhaps she could get her radiotherapy at 8:30 a.m. in the morning and then be admitted directly for desensitization and then be done in time for her next treatment but the radiation oncologist and I agreed that she will speak with the patient's infectious disease doctor regarding whether it would be acceptable to delay her desensitization for 2 weeks until her current regimen of radiation therapy is complete. Time of call 8 minutes. documented in this encounter [facility] 01-25-2024 History of Present illness Narrative Ike Jones is a very pleasant 53 y.o. year old female who comes to the office today with the chief complaint of antibiotics allergy. Referred by Dr. 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 Doxycycline - caused a rash for her. She got this IV while she was in the hospital and got a rash head to toe but without desquamation or mucous membrane lesions. She got Benadryl abdomen IV steroid and got better. She was also on several other antibiotics at this time. Her rash started within 30 minutes of using doxycycline. She had no symptoms of anaphylaxis with this episode. Apparentyl she does not need doxycycline for her infection. She is on imipenum currently and is tolerating it well. She has clofazamine at home on a compassionate use basis. She has concerns about the side effects but no known risk for allergy to this medication. It is known to cause QT prolongation. She is on tedizolid currently orally and tolerating it well. Vancomycin - caused renal failure. EXAM The patient appears comfortable in the office today. Lungs are clear to auscultation bilaterally. The oral mucosa is pink and healthy without any lesions or ulcers. The palate elevates in the midline. The nasal mucosa is pink and healthy. There is no epistaxis mucopus or nasal polyposis noted. The nasal septum is approximately in the midline. The skin is clear of any lesions, excoriations, or erythema. IMPRESSION: doxycycline IgE mediated allergy - I spoke with the patient's infectious disease physician and apparently she will need treatment with a 3rd drug called Omadacycline which is a derivative of tetracycline and doxycycline. Since she has had an immediate type reaction from doxycycline we discussed the risks and benefits of desensitization including the need for hospital admission and the risk of severe even potentially life-threatening reaction and she agrees to proceed with this option preferably as an inpatient in the ICU at [facility]. I will call the hospitalist at [facility] tomorrow about direct admission to the ICU for this procedure in the next several days. I explained to the patient the need to stop her toprol 36 hours before her procedure. She is on this for Trigeminy and HTN. I asked her to communicate with her inductor tester whether she can stop this medication briefly for 36 hours prior to her procedure. Time of Visit 70 minutes including review of prior records and communicating with her referring infectious disease physician on the phone and contact the patient after hours to discuss the final plan. 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 Consent signed and reviewed with Laxmi Cardenas [facility], patient and myself. Everyday, Thursday-Thursday for 20 days Radiation therapy. Recommendations: Continue on PO Tedizolid 200mg once daily Continue clofazamine 100mg once daily Will meet with allergy and immunology to discuss tetracycline allergy and possible desensitization Discontinue clarithromycin Continue imipenem has been extend by 4 weeks Will need monitoring labs and EKG Follow Up: 01/25 televisit Subjective History of Present Illness: Doing well, currently on Tedizolid, imipenem and clarithromycin. Will have her discontinue clarithromycin, continue imipenem and Tedizolid. Plan to proceed with Radiation therapy. IRB approval for Clofazamine has been obtained. From previous note Mycobacterium abscessum Skin and Soft Tissue Infection: Suspect ocean water exposure in August as the initial trigger followed by breast tortilla maker placement. Source control was achieved with tortilla maker removal in October. The skin appears healthy over the breasts; however, her mycobacterium will still need to be treated for 4-6 months. Treating this infection will be complicated given that it is either resistant/intermediate to multiple antibiotics or she has allergies to antibiotics such as tigecycline/doxycycline. 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 Based on review of susceptibility reports, imipenem is an effective medication (despite intermediate labeling), and clarithromycin is susceptible in the short-term. IV Amikacin and oral clofazimine are also potential options although the former will require careful monitoring and oral clofazimine will be complicated to obtain. Right Invasive Ductal Carcinoma of the Breast: Stage IIIc, 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 ER negative (weakly positive) ME negative HER2 negative. Was previously on chemotherapy with carboplatin, paclitaxel, and keytruda September 28 as well as double mastectomy October 2023. Of note, she still reports a lymph node in her R axillae and she is scheduled for radiation therapy on the right breast next week. She has already had this delayed for a month and her oncologist strongly prefers not to defer radiation therapy any longer. - We will reach out to the Oncologist about her radiation. We do not anticipate any further delays for her radiation therapy at this time. Review of Systems: Negative except those noted in current and interim history Objective Physical Examination : BP 128/64 Pulse 96 Temp 36.5 ???C (97.7 ???F) (Oral) Wt 93 kg (205 lb) SpO2 97% BMI 28.59 kg/m??? Temperature Range: Temp: 36.5 ???C (97.7 ???F) @FLOWSTAT(6:24)@ General Appearance: Awake, alert, and in no apparent distress Cardiovascular: Regular rate and rhythm without murmurs, rubs, or gallops. Abdomen: Soft, non-tender, normal bowel sounds; no bruits, organomegaly or masses. Extremities: No cyanosis, clubbing, edema, or effusions. Neurologic: Alert and oriented x 3, gait normal., reflexes normal and symmetric, strength and sensation grossly normal Skin: No rash or lesions. No pallor Laboratory data: I have independently reviewed the following labs: No lab exists for component: RBCCOUNT;3 No lab exists for component: SODIUM No lab exists for component: PROCALCITON Imaging Studies: NO new imaging Cultures: None Medications: Current Outpatient Medications: aspirin 325 mg tablet, Take 325 mg by mouth in the morning., Disp: , Rfl: cyclobenzaprine (Flexeril) 10 mg tablet, 5 mg if needed in the morning, at noon, and at bedtime. Prn, Disp: , Rfl: DULoxetine (Cymbalta) [address] capsule, Take 30 mg by mouth in the morning. Do not crush or chew., Disp: , Rfl: gabapentin (Neurontin) 300 mg capsule, TAKE ONE CAPSULE BY MOUTH TWICE A DAY FOR HOT FLASHES, Disp: , Rfl: imipenem-cilastatin 500 mg in sodium chloride 0.9 % 100 mL IVPB, Infuse 500 mg into a venous catheter every 12 (twelve) hours., Disp: , Rfl: magnesium oxide (Mag-Ox) 400 mg tablet, 400 mg in the morning., Disp: , Rfl: metoprolol succinate XL (Toprol-XL) 100 mg 24 hr tablet, Take 100 mg by mouth in the morning., Disp: , Rfl: potassium chloride CR (Klor-Con) 10 mEq ER tablet, Take 20 mEq by mouth in the morning., Disp: , Rfl: tedizolid (Sivextro) 200 mg tablet, Take 1 tablet (200 mg) by mouth in the morning., Disp: 30 tablet, Rfl: 3 traZODone (Desyrel) 50 mg tablet, TAKE ONE TABLET BY MOUTH ONCE DAILY AT NIGHT, Disp: , Rfl: T (more content not included)... [facility] 12-30-2023 History of Present illness Narrative Images from the original note were not included. Assessment/Plan Diagnoses and all orders for this visit: Retinal tear of right eye Vitreous hemorrhage of right eye (CMS/HCC) - Retinal tear with partial detachment at 12 O'clock. Advised sleeping upright to assist in clearing the VH for better visualization tomorrow. (Although this may cause detachment to propagate.) Avoid strenuous activity and blood thinners. (She was told to continue her Eliquis.) Refer to [facility]. documented in this encounter [facility] 12-30-2023 Note Attestation signed by Herman Lui DO at 12/31/2023 11:07 PM I performed a history and physical examination of the patient Ike Jones, I independently reviewed the laboratory work and imaging as well as other studies mentioned in the above note; I have seen the patient along with and discussed the management with the Infectious Diseases fellow, Scott Rodriguez, DO I have reviewed the above note, I agree with the findings and plan of care with the following additions and corrections: Agree with above complicated with right breast malignancy s/p bilateral mastectomy with tissue tortilla maker placed in 10/28/2023. [place] water exposure was approximately a month prior making the port on the left side the possible portal of entry. Tissue tortilla maker has been taken out, the left chest port remains and may need removed as well. Susceptibility has returned she has an inducible ERM 41 and macrolide resistance, increased resistance to cefoxitin. Amikacin is still susceptible as is tigecycline, but noted to have an adverse reaction. Needs at least 3 active drugs for 4-6 months for appropriate therapy. Potential options include tedizolid, clofazimine and continued imipenem. We can renally dose amikacin as well. Challenge will be finding a regimen and limiting side effects. Will need to discuss with Rad onc as well as her oncologist. Have sent e-consult [facility]. Started IRB process for Clofazimine approval Will inquire about tedizolid availability. At this time will continue linezolid, clarithromycin and imipenem. Thank you for allowing us to participate in the care of this patient. . Subjective Patient ID: Tia Jones is a 53 y.o. female who presents for Invasive ductal carcinoma. The patient is here for a follow-up for her left Mycobacterium abscessum abscess. She has a stage IIIc, 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 ER negative (weakly positive) ME negative HER2 negative. She received neoadjuvant chemotherapy with carboplatin and paclitaxel and Keytruda on September 28. Of note, she went to the ocean shortly after September 28 and believes that she might have gotten water splashed from the ocean on her port. She underwent double mastectomy in October 2023 at which point the spacer was placed. She had a tissue tortilla maker on her left breast that was removed in October because of the mycobacterial infection. At the time, the breast became erythematous with the tortilla maker in place. Culture grew Mycobacterium abscessum. The tortilla maker was removed November 25 and it was washed out at the same time. Since then, she has not had any redness, swelling, tenderness of the skin following the removal and washout. Her skin has been functionally normal for all intents and purposes. She denies any fever, chills, chest pain, SOB, nausea, vomiting, diarrhea, headache, dizziness, or any other symptoms. She is planning on having radiation therapy next and would like to be cleared for that if at all possible. It will be focused only on the right breast. She has already been pushed out a month later than intended. She is going to Radiology at [facility] in [place]. She is currently on oral clarithromycin 500 mg BID and imipenim-cilastatin 500 mg IV BID. She was previously on 10 days of Zyvox but finished that course. She has a posterior vitreal detachment that she is going to see ophthalmology today. The susceptibilities for her Mycobacterium abscessum are as follows: Past Medical History: Past Medical History: Diagnosis Date Cancer (CMS/HCC) Hypertension Patient Active Problem List Diagnosis Arthritis of [...] Well woman exam with routine gynecological exam Edema Pulmonary hypertension (CMS/HCC) S/P breast reconstruction, bilateral Mycobacterium abscessus infection Past Surgical History: Past Surgical History: Procedure Laterality Date ANTERIOR CRUCIATE LIGAMENT REPAIR HYSTERECTOMY Medications: Current Outpatient Medications on File Prior to Visit Medication Sig Dispense Refill aspirin 325 mg tablet Take 325 mg by mouth in the morning. c (more content not included)... [facility] 12-29-2023 History of Present illness Narrative [facility] [address] Office Jhon Rosado MD, PhD Marisela Cuevas, FLUOROSCOPE OPERATOR-GARMENT STEAMER INÉS King, FLUOROSCOPE OPERATOR-GARMENT STEAMER Plastic Surgery Progress Note Reason for visit : Postoperative visit History of present illness: Ike Jones 53 y.o. is here today for a follow up. Patient underwent bilateral skin sparing mastectomies and right axillary node dissection (Dr. He) with immediate bilateral breast reconstruction with placement of tissue expanders and right prophylactic lymphovenous bypass on 10/29/23. Patient unfortunately developed an infection of her left tissue tortilla maker and went underwent I&D of left breast was removal of tissue tortilla maker 11/27/2023. She presents to the office today for tissue tortilla maker filled. She reports that she meets with radiation oncology next week for possible simulation. She is doing well however she does wish to be proximally a D cup and feels that she is a high see at present. Her breast is tight and she is uncertain whether she can accommodate more volume. Procedure note : Tissue tortilla maker fill port, was identified using magnet. This area was cleansed with alcohol, and Betadine. Then using a 25 gauge needle, approximately 75ml normal saline was injected into right tissue tortilla maker(s). Patient tolerated well. Adequate hemostasis was achieved, and a sterile bandage was applied. TOTAL FILL VOLUME: 575mL Review of Systems Negative for fevers, chills. Denies surgical site concerns. All other symptoms negative except as noted in HPI. Physical Examination: Vitals: 12/29/23 0849 BP: 143/86 Pulse: 111 Resp: 14 There is no height or weight on file to calculate BMI. GENERAL: no acute distress, well developed, well nourished. LYMPHATIC: no upper extremity lymphedema; extremities warm, well perfused. NEUROLOGIC: alert and oriented to time, place and person. PSYCH: judgement and insight good, mood/affect full range. Focused examination : Bilateral incisions are well healed. Patient does have some wrinkling of the skin around the right breast to where we felt it was appropriate to proceed with filling however, she is likely close to her maximum volume. Impression: 1. Infection of deep incisional surgical site after procedure, subsequent encounter 2. Malignant neoplasm of lower-inner quadrant of right breast of female, estrogen receptor positive ([facility]) Recommendations: Patient tolerated the MAGO fill. We discussed that because her desire is to eventually undergo bilateral DIEPp breast reconstruction, we should be sufficient with her right breast volume. She will see Radiation Oncology next week. We advise following up with our office at the completion of radiation. We did discuss that we typically will wait 6 months post radiation prior to breast reconstruction. If in the interim, the patient has any issues or concerns, she was instructed to reach out to our office. SHEREEN SMALLWOOD PA-C Please note that portions of this note were generated using voice recognition M*Modal dictation software. Although every effort was made to ensure the accuracy of this automated advertising representative, some errors in advertising representative may have occurred. Shereen Smallwood PA-C 12/29/23 1346 documented in this encounter [email or web address] 12-28-2023 Hospital Discharge instructions Patient Education 12/28/2023 21:28:42 Vitreous Detachment Vitreous Detachment Vitreous detachment is part of the normal aging process in the eyes. Vitreous is the jelly-like fluid that makes up most of the inside of the eyeballs. It helps the eyeballs keep a round shape. The vitreous is attached to the back layer of the eye (retina) with a series of fibers. As you age, the vitreous gradually shrinks. Tension increases between the fibers and the retina. Eventually, the fibers can break free from the retina, causing vitreous detachment. What are the causes? Aging is the main cause of vitreous detachment. Everyone's vitreous naturally shrinks with age. What increases the risk? You are more likely to have vitreous detachment if: You are at least 50 years old. You have or have had inflammation of the eye. You have or have had an eye injury. You have had eye surgery. You have or have had a hemorrhage in your eye. You are very nearsighted (myopia). You have diabetes. What are the signs or symptoms? Many times there are no symptoms of this condition. If symptoms do occur, the most common is floaters. Floaters occur as the vitreous begins to shrink. They may: Appear as tiny dots, webs, or threads in your vision. Seem to disappear when you look at them directly. Continue moving after your eye stops moving. Appear more often as your condition gets worse. Other symptoms include: Flashes of light (photopsia) in your peripheral vision that may look like lightning streaks. Decreased vision or a dark curtain or shadow moving across your field of vision. This is rare. How is this diagnosed? This condition may be diagnosed based on: Your signs and symptoms. An exam by a health care provider who specializes in conditions and diseases of the eye (truck technician). The exam may include: ?Putting eye drops in your eye to make the pupil wider (dilated). The pupil is the opening in the center of the eye. ?Checking the back of your eye with a microscope. This exam is the best way to determine the type and extent of damage to your eye. How is this treated? Many times treatment is not needed for this condition. For many, a vitreous detachment causes no symptoms or vision loss. Floaters usually become less noticeable over time. Retinal detachment is a possible complication of this condition. Retinal detachment is when the retina separates from the eyeball. This requires treatment to prevent vision loss. Treatment may include surgery. Follow these instructions at home: Keep all follow-up visits. This is important. Contact a health care provider if: You have more floaters than usual. You cannot see well because of your floaters. You develop any new symptoms. Get help right away if: You develop signs of retinal detachment. These include: ?A sudden increase in the number of floaters you see. ?An increase in the number of flashes of light you see in your peripheral vision. ?Developing a curtain that blocks part of your vision. ?Developing severely decreased vision. These symptoms may be an emergency. Get help right away. Call 911. Do not wait to see if the symptoms will go away. Do not drive yourself to the hospital. Summary Vitreous detachment is part of the normal aging process in the eyes. Vitreous is the jelly-like substance inside the eyeballs. As you age, the vitreous shrinks, and the fibers that attach the vitreous to the retina can break free, causing vitreous detachment. In most cases, vitreous detachment does not cause symptoms and does not require treatment. The most common symptom that can occur is seeing floaters that appear as tiny dots, webs, or threads in your vision. Vitreous detachment can sometimes cause the retina to separate from the eyeball (retinal detachment). Signs include a sudden increase in the number of floaters you see and an increase in the number of flashes of light you see in your peripheral vision. You may also develop a curtain that blocks part of your vision. Retinal detachment must be treated right away to prevent vision loss. This information is not intended to replace advice given to you by your health care provider. Make sure you discuss any questions you have with your health care provider. Document Revised: 09/04/2021 Document Reviewed: 09/04/2021 [employer] Patient Education 2023 A V.E.T.S.c.a.r.e.. Follow Up Care 12/28/2023 20:24:16 With:Georgiana Justice Address: [address] [address]- Business (1) When:12/29/2023 21:28:05 Comments:Please call first in the morning for same-day appointment With:RANDY CALLE Address: [address] [place] [address] Business (1) When:Within 3 Day(s) [facility] 12-28-2023 Note ED Patient Education Note Ophthalmology Vitreous Detachment Vitreous detachment is part of the normal aging process in the eyes. Vitreous is the jelly-like fluid that makes up most of the inside of the eyeballs. It helps the eyeballs keep a round shape. The vitreous is attached to the back layer of the eye (retina) with a series of fibers. As you age, the vitreous gradually shrinks. Tension increases between the fibers and the retina. Eventually, the fibers can break free from the retina, causing vitreous detachment. What are the causes? Aging is the main cause of vitreous detachment. Everyone's vitreous naturally shrinks with age. What increases the risk? You are more likely to have vitreous detachment if: ??? You are at least 50 years old. ??? You have or have had inflammation of the eye. ??? You have or have had an eye injury. ??? You have had eye surgery. ??? You have or have had a hemorrhage in your eye. ??? You are very nearsighted (myopia). ??? You have diabetes. What are the signs or symptoms? Many times there are no symptoms of this condition. If symptoms do occur, the most common is floaters. Floaters occur as the vitreous begins to shrink. They may: ??? Appear as tiny dots, webs, or threads in your vision. ??? Seem to disappear when you look at them directly. ??? Continue moving after your eye stops moving. ??? Appear more often as your condition gets worse. Other symptoms include: ??? Flashes of light (photopsia) in your peripheral vision that may look like lightning streaks. ??? Decreased vision or a dark curtain or shadow moving across your field of vision. This is rare. How is this diagnosed? This condition may be diagnosed based on: ??? Your signs and symptoms. ??? An exam by a health care provider who specializes in conditions and diseases of the eye (truck technician). The exam may include: ? Putting eye drops in your eye to make the pupil wider (dilated). The pupil is the opening in the center of the eye. ? Checking the back of your eye with a microscope. This exam is the best way to determine the type and extent of damage to your eye. How is this treated? Many times treatment is not needed for this condition. For many, a vitreous detachment causes no symptoms or vision loss. Floaters usually become less noticeable over time. Retinal detachment is a possible complication of this condition. Retinal detachment is when the retina separates from the eyeball. This requires treatment to prevent vision loss. Treatment may include surgery. Follow these instructions at home: ??? Keep all follow-up visits. This is important. Contact a health care provider if: ??? You have more floaters than usual. ??? You cannot see well because of your floaters. ??? You develop any new symptoms. Get help right away if: ??? You develop signs of retinal detachment. These include: ? A sudden increase in the number of floaters you see. ? An increase in the number of flashes of light you see in your peripheral vision. ? Developing a curtain that blocks part of your vision. ? Developing severely decreased vision. These symptoms may be an emergency. Get help right away. Call 911. ??? Do not wait to see if the symptoms will go away. ??? Do not drive yourself to the hospital. Summary ??? Vitreous detachment is part of the normal aging process in the eyes. ??? Vitreous is the jelly-like substance inside the eyeballs. As you age, the vitreous shrinks, and the fibers that attach the vitreous to the retina can break free, causing vitreous detachment. ??? In most cases, vitreous detachment does not cause symptoms and does not require treatment. The most common symptom that can occur is seeing floaters that appear as tiny dots, webs, or threads in your vision. ??? Vitreous detachment can sometimes cause the retina to separate from the eyeball (retinal detachment). Signs include a sudden increase in the number of floaters you see and an increase in the number of flashes of light you see in your peripheral vision. You may also develop a curtain that blocks part of your vision. Retinal detachment must be treated right away to prevent vision loss. This information is not intended to replace advice given to you by your health care provider. Make sure you discuss any questions you have with your health care provider. Document Revised: 09/04/2021 Document Reviewed: 09/04/2021 [employer] Patient Education ? 2023 A V.E.T.S.c.a.r.e.. [facility] 12-28-2023 Evaluation + Plan note Extrac tena from: Title:ED Note Author:Rusty Horton DO. 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 10-21-2024 History of Present illness Narrative* AMEENA Kennedy - 12/21/2023 1:30 PM EDT [facility] [address] Office Jhon Rosado MD, PhD Marisela Cuevas, ROBER-ESPERANZA Smallwood PA-C Plastic Surgery Progress Note Reason for visit : Routine post operative appointment. History of present illness: Ike Jones is a 53 y.o. female who presents for postoperativevisit. Patient underwent bilateral skin sparing mastectomies and right axillary node dissection (Dr. He) with immediate bilateral breast reconstruction with placement of tissue expanders and right prophylactic lymphovenous bypass on 10/29/23. Patient unfortunately developed an infection of her left tissue tortilla maker and went underwent I&D of left breast was removal of tissue tortilla maker 11/27/2023. Shepresents to the office today for tissue tortilla maker filled. She reports that she meets with radiation oncology next week for possible simulation. She is unsure if she is happy with the size of her breast. She reports she would like to be approximately D cup. The patient is doing well postoperatively. The patient denies fever, chills, redness or drainage from surgical wound(s). Pathology is pending. Review of Systems: Denies surgical site concerns. All other symptoms negative except as noted in HPI. Physical Examination: Vitals: 12/21/23 1357 BP: 141/84 Pulse: 96 Resp: 14 There is no height or weight on file to calculate BMI. GENERAL: no acute distress, well developed, well nourished. LYMPHATIC: no upper extremity lymphedema NEUROLOGIC: alert and oriented to time, place and person. PSYCH: judgement and insight good, mood/affect full range. Focused examination : Right breast incision clean, dry and intact. Skin laxity present. No erythemaor necrosis noted. No fluid collections palpated. Nipple- areolar complexes surgically absent. No open wounds or active drainage. No signs of infection. Impression: 1. Encounter for postoperative care 2. Acquired absence of breast, bilateral 3. S/P breast reconstruction, bilateral Recommendations: Patient is doing well postoperatively. Tissue tortilla maker filled performed in office today. Discussed with patient she can use [id number] acetaminophen or ibuprofen for Any discomfort after tissue tortilla maker filled. Continue with supportive bra. Okay to start increasing activitiesas tolerated. Discussed with patient that we would like to have her fully expanded before she performs radiation simulation as when she is stimulated we would not be able to Fill this breast. She will follow up next week with our office for TE fill. She was advised to call the office any questions or concerns in the interim. - AMEENA Rand 12/21/23 3:00 PM Please note that portions of this note were generated using voice recognition [employer]OMi dictation software. Although every effort was made to ensure the accuracy of this automated advertising representative, some errors in advertising representative may have occurred. AMEENA Kennedy 12/21/23 1500 documented in this [facility]10-16-2024 Miscellaneous Notes* Telephone Encounter - Deborah Wills CMA - 12/16/2023 11:25 AM EDT Patient will call us back to schedule a hospital follow up documented in this [facility]10-16-2024 Telephone encounter Note* Telephone Encounter - Deborah Wills CMA - 12/16/2023 11:25 AM EDT Patient will call us back to schedule a hospital follow up [facility]10-14-2024 History of Present illness Narrative* AMEENA Kennedy - 12/14/2023 3:30 PM EDT [facility] [address] Office Jhon Rosado MD, PhD Marisela Cuevas, FLUOROSCOPE OPERATOR-GARMENT STEAMER Shereen Smallwood PA-C Plastic Surgery Progress Note Reason for visit : Routine post operative appointment. History of present illness: Ike Jones 53 y.o. is here today for a follow up after bilateral skin sparing mastectomies and right axillary node dissection (Dr. He) with immediate bilateral breast reconstruction with placement of tissue expanders and right prophylactic lymphovenous bypass on 10/29/23. Patient unfortunately developed an infection of her left tissue tortilla maker and went underwent I&D of left breast was removal of tissue tortilla maker 11/27/2023. Patient did have positive cultures. She continues to follow with Infectious Disease. She presents to office today for right breast tissue tortilla maker filled. She states overall she is doing well. She will likely have to be on IV antibiotics for 6 months to 1 year. She is unsure of radiation start date. She is overall feeling better since her hospitalization. Review of Systems: Negative for fevers, chills. Denies surgical site concerns. All other symptoms negative except as noted in HPI. Physical Examination: There were no vitals filed for this visit. There is no height or weight on file to calculate BMI. General exam: Alert and oriented x 3, comfortable, non-toxic. S1, S2. Nonlabored breathing. Abdomen soft/non-tender/non-distended. Extremities warm, well perfused. Negative Gretchen's sign. Focused examination : Bilateral breast incisions clean, dry and intact. No erythema or necrosis present. No ballotable fluid collections are palpated. No masses noted. Bilateral nipple-areolar complexes are surgically absent. Right breast tissue tortilla maker in place. Procedure note : Tissue tortilla maker fill port, was identified using magnet. This area was cleansed with alcohol, and Betadine. Then using a 25 gauge needle, approximately 200ml normal saline was injected into right tissue tortilla maker(s). Patient tolerated well. Adequate hemostasis was achieved, and a sterile bandage was applied. TOTAL FILL VOLUME: 300ML Impression: 1. Encounter for postoperative care 2. Acquired absence of breast, bilateral 3. S/P breast reconstruction, bilateral 4. Infection of breast implant, subsequent encounter Recommendations: TE fill performed in office today. Patient tolerated well. Information given to patient about breast prosthesis for her left breast. We discussed with patient that we would like to continue to expand her right breast tissue tortilla maker until she is at a size she is happy with. We would like this to be completed prior to starting radiation therapy. She does have an appointment scheduled to meet with Radiation Oncology at the end of the month. Continue with IV antibiotics per Infectious disease's recommendations. Continue to refrain from any heavy lifting, pushing or pulling. Follow up next week for tissue tortilla maker filled. She was advised to call the office any questions orconcerns in the interim. - AMEENA Rand 12/14/23 3:57 PM Please note that portions of this note were generated using voice recognition [employer] dictation software. Although every effort was made to ensure the accuracy of this automated advertising representative, some errors in advertising representative may have occurred. AMEENA Kennedy 12/14/23 1557 documented in this encounterOhioHealth Southeastern Medical CenterBridge [employer] [facility] [id number] History of Present illness Narrative* TATI Gordon - 12/14/2023 2:00 PM EDT POSTOPERATIVE VISIT DIAGNOSIS: Right IDC grade 3, ER 75, ME-, [id number] (IHC score 1+), 1.8 cm, 6/12 nodes+ STAGE: ypT1c N2a DATE OF DIAGNOSIS: 04/10/2023 OPERATION PERFORMED: Right skin sparing mastectomy, right axillary lymph node dissection, left risk-reducing skin sparing mastectomy, right lymphovenous bypass and bilateral tissue expanders (10/29/2023); s/p I&D left breast w removal of tissue tortilla maker d/t infection (11/27/2023). GENETIC TESTING: No mutations MED ONC: Dr. Luis Hope RAD ONC: Referred PLASTICS: Dr. Jhon Rosdao PATHOLOGY: The following pathology was reviewed and discussed with the patient. [facility] [address] [place] [address] Surgical Pathology Consultation Patient Name:IKE JONES:1970 (Age: 53)Gender:FTaken:4Reported:4Physician(s):Christy He MD ([phone])Copy To:Jhon Rosado, [facility] #:[id number]. Rec. #:[id number]: #[id number] Final Pathologic Diagnosis 1. Left breast, mastectomy: Breast with diffuse fibrocytic changes and minute focus of atypical ductal hyperplasia (ADH) Neoplasm is not identified Comment: Atypical ductal hyperplasia (ADH) is far from surgical margins 2. Right breast mastectomy: INVASIVE DUCTAL CARCINOMA, Grade 2 (1.8 x 1.2 cm)(ypT1c(m)) Multiple foci of invasive neoplasm (ranging from 3mm- 5mm) Extensive ductal carcinoma in situ (DCIS), high grade All margins are negative (>2 cm away) Lymphovascular invasion is present Additional incidental fibroadenomas and areas of fibroadenomatous hyperplasia Comment: The tumor is microscopically measured due to therapeutic response. The gross measurement includes surrounding areas of dense fibrosis, likely tumor that had complete response. Repeat biomarker testing is performed and reported below. 3. Right breast, mastectomy additional margin 11:00, excision: Negative for neoplasm (6 mm thickness) 4. Right breast, mastectomy additional margin 12:00, excision: Negative for neoplasm (6 mm thickness) 5. Right breast, mastectomy additional margin 1:00, excision: Negative for neoplasm (8 mm thickness) 6. Right axillary contents, excision: Six of twelve lymph nodes with macrometastatic malignancy (15mm) (6/12)(pN2a) Extracapsular extension is present One lymph node with individual tumor cells Comment: Immunostains were performed with adequate controls. Results show the following:CAM 5.2 highlights the metastatic malignancy. CANCER CASE SUMMARY SPECIMEN:Breast Procedure: Mastectomy Specimen laterality: Right TUMOR: Histologic type: Ductal Histologic grade: Glandular (acinar)/tubular differentiation: 3 Nuclear pleomorphism: 3 Mitotic rate: 1 Overall grade: 2 Tumor size: Greatest dimension: 1.8 cm Ductal carcinoma in situ (DCIS): Present, High grade Positive for extensive intraductal component (EIC). Tumor extent: Localized to breast parenchyma Lymphatic and/or vascular invasion: Present Treatment effect in the breast: Present, definite response Treatment effect in the lymph nodes: Present MARGINS: Margins status for invasive carcinoma: Negative, all greater than 1cm Margins status for DCIS: Negative REGIONAL LYMPH NODES: Regional lymph node status: Number of lymph nodes with macrometastases (greater than 2 mm): 6 Number of lymph nodes with micrometastases (greater than 0.2 mm to 2 mm and/or greater than 200 cells): 0 Size of largest bibi metastatic deposit: Exact size 15 mm Extranodal extension: Present Total number of lymph nodes examined: 12 Number of sentinel nodes examined: 0 DISTANT METASTASIS: Unknown pTNM CLASSIFICATION (pTNM, AJCC 8th Edition) Modified classification: y pT category: pT1c T suffix:m pN category: pN2a N suffix: N/A SPECIAL STUDIES: Breast biomarker testing repeated in house, see below BREAST BIOMARKER REPORTING TEMPLATE Estrogen Receptor (ER) Positive (percentage of cells with nuclear positivity: 75%); Average intensity of staining: DIm-Moderate Progesterone Receptor (PgR) Negative Internal control cells present and stain as expected HER2 (by immunohistochemistry) Negative (Score 1+) Cold ischemia and fixation times meet the requirements specified in the latest version of the ASCO/CAP guidelines: Yes All external controls reacted appropriately. HISTORY: Ike Jones is a 53 y.o. female who presents today for a post- op visit. She states she is doing well since her hospitalization. She will be on IV antibiotics under the care of infectious disease for 6 months to 1 year. She does report some continued bruising and tenderness to the upper portion of her left breast but denies drainage. BP 142/87 Pulse 86 Resp 18 Ht 180.3 cm (5' 11 ) Wt 94.8 kg (209 lb) BMI 29.15 kg/m PHYSICAL EXAM: Examination shows the bilateral mastectomy incision are clean, dry, and healing well. No evidence of infection, hematoma, or seroma. Right TE in place. ROS: Denies fever or chills. IMPRESSION: -Right IDC grade 3, ER 75, ME-, [id number] (IHC score 1+); s/p right skin sparing mastectomy, right axillary lymph node dissection, left risk-reducing skin sparing mastectomy, right lymphovenous bypass and bilateral tissue expanders (10/29/2023); 1.8 cm, 6/12 nodes+; s/p I&D left breast w removal of tissue tortilla maker d/t infection (11/27/2023 PLAN: Discussed pathology report and patient given copy of report. Discussed usual healing and recovery. Given ALND, will refer to lymphedema clinic. F/U with medical and radiation oncology as scheduled. Discussed follow up intervals. We will see her back in 3 months for a clinical breast exam. The patient was encouraged to call back with any questions or concerns prior to her next visit. Francisca Mason PA-C [facility] Breast Surgery [phone] (phone) TATI Gordon 12/16/23 [id number] documented in this encounterUpper [facility] NoteSubjective Patient ID: Tia Eason Widchen is a 53 y.o. female. 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 The tissue tortilla maker was removed on 26 November. A specific question would be when is she able to receive radiation therapy as part of her breast cancer treatment. 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 ER negative (weakly positive) ME negative HER2 negative. She received neoadjuvant chemotherapy with carboplatin and paclitaxel and Keytruda. She underwent double mastectomy in October 2023. Had a follow-up visit on 24 November, she had fluid aspiration from her left breast. This was smear positive for acid-fast bacilli; subsequent cultures grew Mycobacterium abscessus. The tissue tortilla maker was removed on 26 November. She appears to have been started on vancomycin and ertapenem at that time. Subsequently, she developed nausea, vomiting, fever and was admitted to hospital. She was found to have elevated serum creatinine of approximately 2.5 up from her baseline of 0.8. She was admitted from 01 December through 08 December. Blood cultures and respiratory PCR were negative at that time. During that hospitalization, she was started on ciprofloxacin, clarithromycin and twice daily imipenem for treatment of Mycobacterium abscessus. She says that during that hospitalization, she developed a rash when she was treated with tigecycline and doxycycline. Currently, she denies any fever, chills, night sweats, pain in her breasts, pain in her chest, shortness of breath; she denies nausea, vomiting, diarrhea. She denies any drainage from her breast incisions. She is receiving home antibiotic therapy. She was referred to [facility] infectious disease with a planned visit in mid December; we accommodated an earlier visit. She says that she takes trazodone intermittently for sleep. She does not take it regularly. She last took it last night. 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 Review of Systems Constitutional: Negative for chills, fatigue and fever. Respiratory: Negative for cough and shortness of breath. Cardiovascular: Negative for chest pain and leg swelling. Gastrointestinal: Negative for abdominal pain, diarrhea, nausea and vomiting. Genitourinary: Negative for difficulty urinating, dysuria, hematuria and urgency. Skin: Negative for rash. Hematological: Negative for adenopathy. Objective Physical Exam Vitals reviewed. Exam conducted with a director regulatory compliance present. Constitutional: Appearance: Normal appearance. HENT: Head: Normocephalic. Mouth/Throat: Mouth: Mucous membranes are moist. Pharynx: No oropharyngeal exudate or posterior oropharyngeal erythema. Eyes: General: No scleral icterus. Cardiovascular: Rate and Rhythm: Normal rate and regular rhythm. Heart sounds: No murmur heard. Comments: Chest port Pulmonary: Effort: Pulmonary effort is normal. Breath sounds: Normal breath sounds. Chest: Comments: Chest: incisions closes; no rubor, no calor, no dolor, no tumor, no drainage. Truck Engine Assembler present No nipples Abdominal: General: Abdomen is flat. Bowel sounds are normal. Palpations: Abdomen is soft. Tenderness: There is no right CVA tenderness or left CVA tenderness. Musculoskeletal: Right lower leg: No edema. Left lower leg: No edema. Lymphadenopathy: Cervical: No cervical adenopathy. Skin: Capillary Refill: Capillary refill takes less than 2 seconds. Findings: No rash. Neurological: General: No focal deficit present. Mental Status: She is alert and oriented to person, place, and time. Psychiatric: Mood and Affect: Mood normal. Laboratory: 27 Nov 2023 left breast aspirate- M. Abscessus; sent to [facility] on 04 Dec 2023 for susceptiblity. 1. Invasive ductal carcinoma of breast, right (CMS/HCC) We will work to determine when it is safe for her to receive radiation therapy. We will aim to determine this within the next week. 2. MIRNA (acute kidney injury) (CMS/HCC) Cr is 1.5; Cr Cl approx 48. Renal dose medications. 3. 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 Cultures were positive from 24 November. Breast tortilla maker was removed on 26 November. She appears to have been started on agents active against Mycobacterium abscessus on 04 December. She has specimens that have been sent to [facility] on the first week of November susceptibilities are pending. She has no signs or symptoms of systemic infection and her chest demonstrates no drainage or fluctuance. Assessment/Plan 53 y.o. female We will continue (more content not included)...[facility]10-11-2024 Miscellaneous Notes* Telephone Encounter - Ana Ibrahim - 12/11/2023 10:24 AM EDT Needs TCM before 12/21 * Telephone Encounter - Ana Ibrahim - 12/11/2023 10:24 AM EDT Mailbox full * Telephone Encounter - Ana Ibrahim - 12/11/2023 10:24 AM EDT he has upcoming appts with at least 3 specialties that is a lot with what she is going through. If she needs anything from me let me know- she could do telehealth too. - richie * Telephone Encounter - Ana Ibrahim - 12/11/2023 10:24 AM EDT Mailbox full documented in this encounterUpper [facility]10-11-2024 Telephone encounter Note* Telephone Encounter - Ana Ibrahim - 12/11/2023 10:24 AM EDT Needs TCM before 12/21 [facility]10[facility] Telephone encounter Note* Telephone Encounter - [facility] Patrice - 12/11/2023 10:24 AM EDT Mailbox full [facility]10-[facility] Telephone encounter Note* Telephone Encounter - Anaalfredo Ibrahim - 12/11/2023 10:24 AM EDT he has upcoming appts with at least 3 specialties that is a lot with what she is going through. If she needs anything from me let me know- she could do telehealth too. - richie [facility]10-11-2024 Telephone encounter Note* Telephone Encounter - Anaalfredo Ibrahim - 12/11/2023 10:24 AM EDT Mailbox full [facility]10-[facility] Miscellaneous Notes* Telephone Encounter - Mela Berrios RN - 12/11/2023 9:15 AM EDT Transition of Care (*required) *Additional Questions/Concerns Requiring PCP Follow-Up: For TCM, patient would need appt on/before 12/22/23 This documentation is being used for Transition of Care purposes: Yes Goal: Patient will demonstrate a safe transition from hospital to home Diagnosis on Discharge: Postop infection of left breast tissue tortilla maker-culture with mycobacterium abscessus New rash Acute kidney injury History of breast cancer S/p bilateral mastectomies S/p bilateral breast reconstruction October 28, 2023 Discharge Specialty: Hem/Onc, Infectious Disease, and Nephrology *Name of Discharging Facility: [facility] Date of Facility Discharge: Admitted; 12/02/23 Discharged: 12/09/23 Date of Interactive Contact and Name of Vertical Lathe Operator: 12/11/23 Patient: Ike Jones *Medication Review Completed: Yes START taking: ciprofloxacin HCl (CIPRO) clarithromycin (BIAXIN) cyanocobalamin imipenem-cilastatin 500 mg in sodium chloride 0.9 % 100 mL IVPB MINI-BAG Plus linezolid (ZYVOX) STOP taking: dexAMETHasone 1 mg tablet (DECADRON) diazePAM 5 mg tablet (VALIUM) ertapenem 1,000 mg in sodium chloride 0.9 % 50 mL IVPB MINI-BAG Plus ferrous sulfate 325 (65 FE) mg tablet furosemide 20 mg tablet (LASIX) gabapentin 300 mg capsule (NEURONTIN) oxyCODONE 5 mg immediate release tablet (ROXICODONE) predniSONE 5 mg tablet (DELTASONE) spironolactone 25 mg tablet (ALDACTONE) vancomycin 1,500 mg in sodium chloride 0.9 % 500 mL IVPB Medication Reconciliation Questions/Concerns: *Follow Up Appointments with Providers: Primary: AMEENA DIAZ Specialty: ID ([facility]): 12/11/23 Specialty: Surgical Oncology (TATI Mason): 12/14/23 Specialty: Nephrology (Morton): TBD Review of Pending Lab/Diagnostic Tests and Plan for Completion: Weekly CBC, CMP Orders confirmed in EPIC Results to ID Assessment and Support of Treatment Regimen Adherence and Medication Management: Lives with , independent with ADLs, medications, transportation Incision CDI Denies pain Denies fever, chills Rash has resolved L sided chest port working without difficulty Patient infusing IV antibiotic independently Denies N/V, chest pain, SOB or any new symptoms Education Provided by ACN to Support Self-Management, Independent Living and ADLs: Discharge instructions reviewed Communication with Home Health Agencies and Other Services Utilized/Needed by the Patient: [facility] infusion services * Telephone Encounter - Ana Ibrahim - 12/11/2023 9:15 AM EDT Called patient mailbox full [place]Taylor [place] [id number] Telephone encounter Note* Telephone Encounter - Mela Berrios RN - 12/11/2023 9:15 AM EDT Transition of Care (*required) *Additional Questions/Concerns Requiring PCP Follow-Up: For TCM, patient would need appt on/before 12/22/23 This documentation is being used for Transition of Care purposes: Yes Goal: Patient will demonstrate a safe transition from hospital to home Diagnosis on Discharge: Postop infection of left breast tissue tortilla maker-culture with mycobacterium abscessus New rash Acute kidney injury History of breast cancer S/p bilateral mastectomies S/p bilateral breast reconstruction October 28, 2023 Discharge Specialty: Hem/Onc, Infectious Disease, and Nephrology *Name of Discharging Facility: [facility] Date of Facility Discharge: Admitted; 12/02/23 Discharged: 12/09/23 Date of Interactive Contact and Name of Vertical Lathe Operator: 12/11/23 Patient: Ike Jones *Medication Review Completed: Yes START taking: ciprofloxacin HCl (CIPRO) clarithromycin (BIAXIN) cyanocobalamin imipenem-cilastatin 500 mg in sodium chloride 0.9 % 100 mL IVPB MINI-BAG Plus linezolid (ZYVOX) STOP taking: dexAMETHasone 1 mg tablet (DECADRON) diazePAM 5 mg tablet (VALIUM) ertapenem 1,000 mg in sodium chloride 0.9 % 50 mL IVPB MINI-BAG Plus ferrous sulfate 325 (65 FE) mg tablet furosemide 20 mg tablet (LASIX) gabapentin 300 mg capsule (NEURONTIN) oxyCODONE 5 mg immediate release tablet (ROXICODONE) predniSONE 5 mg tablet (DELTASONE) spironolactone 25 mg tablet (ALDACTONE) vancomycin 1,500 mg in sodium chloride 0.9 % 500 mL IVPB Medication Reconciliation Questions/Concerns: *Follow Up Appointments with Providers: Primary: RICHIE HANNA APRN-ESPERANZA Specialty: ID ([facility]): 12/11/23 Specialty: Surgical Oncology (TATI Mason): 12/14/23 Specialty: Nephrology (Pra[facility]en): TBD Review of Pending Lab/Diagnostic Tests and Plan for Completion: Weekly CBC, CMP Orders confirmed in EPIC Results to ID Assessment and Support of Treatment Regimen Adherence and Medication Management: Lives with , independent with ADLs, medications, transportation Incision CDI Denies pain Denies fever, chills Rash has resolved L sided chest port working without difficulty Patient infusing IV antibiotic independently Denies N/V, chest pain, SOB or any new symptoms Education Provided by ACN to Support Self-Management, Independent Living and ADLs: Discharge instructions reviewed Communication with Home Health Agencies and Other Services Utilized/Needed by the Patient: [facility] infusion services [id number] Telephone encounter Note* Telephone Encounter - Ana Ibrahim - 12/11/2023 9:15 AM EDT [facility] patient [id number] History of Present illness Narrative* Og Morton MD - 12/09/2023 3:54 PM EDT Images from the original note were not included. NEPHROLOGY PROGRESS NOTE Assessment 1. Acute kidney injury attributed to acute tubular necrosis in the setting of sepsis, renal function improving with creatinine down to 1.5 mg/dL today. 2. Left breast cellulitis following surgery on triple antimicrobial agents per Infectious disease service recommendation 3. Hypertension: Adequately controlled 4. Allergic reaction possibly to tigecycline improving after steroids and discontinuation of the offending agent. 5. Volume status: Her p.o. intake has improved, discontinue IV fluids Plan 1. I have no objection to patient being discharged. 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 Subjective/Interval history No events Problem List Acute kidney injury which could related to Acute Tubular Necrosis secondary to sepsis versus vancomycin nephrotoxicity versus volume depletion secondary to poor p.o. intake in the setting of ongoing intake of chlorthalidone, Lasix, lisinopril and spironolactone. From December of 2023 Renal ultrasound revealed right kidney of 11.4 cm left of 14.7 cm with no evidence of hydronephrosis, CPK was 52, serum protein electrophoresis was negative monoclonal bands, JUSTIN anti MPO anti PR3 and anti-GBM were negative, C3 was 158 and C4 was 38, urine dipstick was negative for blood or protein, fractional excretion of sodium was 1.8% and random urine protein to creatinine ratio was 0.3 grams/gram. Left breast cellulitis with infected seroma status post removal of left breast tortilla maker on November 27, 2023 Hypertension Edema Depression/anxiety DVT Right-sided breast cancer status post bilateral mastectomy with a lymph node dissection with subsequent bilateral breast reconstruction on October 28, 2023 MediPort placement Bilateral knee arthroscopy Tonsillectomy and adenoidectomy Physical Exam Admission Weight: Weight: 94.3 kg (208 lb) I/O last 3 completed shifts: In: 3506.5 [P.O.:1400; I.V.:1810; IV Piggyback:296.5] Out: 900 [Urine:900] Weight change: Wt Readings from Last 3 Encounters: 12/05/23 98.5 kg (217 lb 2.5 oz) 12/02/23 95.2 kg (209 lb 14.1 oz) 11/28/23 95.2 kg (209 lb 14.1 oz) Vitals: Vitals: 12/08/23 2348 12/09/23 0344 12/09/23 0914 12/09/23 1155 BP: 124/65 138/83 125/70 Pulse: 72 78 80 75 Resp: 18 18 18 Temp: 36.4 C (97.6 F) 36.8 C (98.3 F) 36.7 C (98.1 F) 36.4 C (97.5 F) TempSrc: Oral Oral Oral Oral SpO2: 95% 97% 98% 99% Weight: Height: General: Alert, oriented x 3 and in no obvious distress Psychiatric: Has a normal mood and affect. HEENT: Head normocephalic. Eyes: Conjunctivae and EOM are normal. Pupils are equal, round and reactive to light. Cardiovascular: Normal rate, regular rhythm and normal heart sounds. No JVD. Pulmonary/Chest: Air entry bilaterally equal. No wheezes or rales. Abdominal: Soft, bowel sounds are normal and there was no tenderness rebound or guarding. Musculoskeletal: Normal range of motion. No tenderness. Neurological: No obvious deficits. Skin: Blanching drug rash noted Extremities: No significant peripheral edema Meds: Current Meds: apixaban, 5 mg, oral, BID ciprofloxacin HCl, 500 mg, oral, Q12H RADHA clarithromycin, 500 mg, oral, Q12H RADHA cyanocobalamin, 1,000 mcg, oral, Daily hydrocortisone, 1 Application, topical, BID imipenem-cilastatin, 500 mg, intravenous, Q12H magnesium oxide, 400 mg, oral, BID metoprolol succinate XL, 100 mg, oral, BID potassium chloride, 20 mEq, oral, Daily sodium chloride, 3 mL, intravenous, Q12H RADHA Continuous Infusions: Laboratory Studies Results from last 7 days Lab Units 12/09/23 0511 12/08/23204412/08/23 1303 12/08/23 0514 12/07/23 0450 SODIUM mmol/L 139 -- -- 136 138 POTASSIUM mmol/L 3.8 3.8 3.3* 3.2* 3.3* CHLORIDE mmol/L 106 -- -- 101 102 CO2 mmol/L 26 -- -- 27 28 BUN mg/dL 23 -- -- 24* 27* CREATININE mg/dL 1.50* -- -- 1.89* 2.07* CALCIUM mg/dL 8.7 -- -- 8.7 8.8 PHOSPHORUS mg/dL 3.7 -- -- 4.1 5.4* MAGNESIUM mg/dL 1.8 -- 2.5 1.5* 2.0 Results from last 7 days Lab Units 12/09/23 0512/08/2314 12/07/23 0450 WBC X10E9/L 4.3 2.9* 2.7* HEMOGLOBIN g/dL 7.4* 8.1* 7.8* HEMATOCRIT % 22.0* 23.1* 22.3* PLATELETS X10E9/L 153 147* 150 Results from last 7 days Lab Units 12/09/23 0512/08/23 1303 12/08/23 0514 MAGNESIUM mg/dL 1.8 2.5 1.5* Lab Results Component Value Date CALCIUM 8.7 12/09/2023 Lab Results Component Value Date IRON <10 (L) 12/04/2023 TIBC 272 12/04/2023 FERRITIN 8 (L) 01/31/2022 Please contact me at [phone] (Office) or [phone] (Answering service) with any questions. Please feel free to contact me through [employer] Secure chat during the daytime hours, if no response after 5 minutes then call the answering service. Og Morton MD [facility] This note was created with the assistance of a speech-recognition program. Although the intention is to generate a document that actually reflects the content of the visit, no guarantees can be provided that every mistake has been identified and corrected by editing. 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 New rash Acute kidney injury History of breast cancer S/p bilateral mastectomies S/p bilateral breast reconstruction October 28, 2023 History of DVT-on Eliquis Presence of Port-A-Cath Recommendations: Breast surgical cultures with Mycobacterium abscessus Repeat blood cultures preliminarily with no growth at 3 days Continue Cipro and clarithromycin Continue imipenem Gave dose of doxycycline this morning and patient developed flushing of face and rash on chest-discontinued Plan is for ciprofloxacin for 2 week course of treatment until December 15 and then Zyvox from December 16 to December 29, clarithromycin until January 14 tentatively, and imipenem until January 14 tentatively Ambulatory referral placed for [facility] ID Dr. Lui for termite technician management -has appointment January 13 WBC, platelets, creatinine, LFTs weekly while on antibiotics Prescription for imipenem provided to data recovery planner Follow-up CBC renal function WBC 4.3, creatinine 1.50 Follow temperatures-no fevers since December 06 Supportive care FOLLOW UP/chief complaints Breast surgical site infection Interval History: Patient is sitting up in bed. at bedside. Did develop flushing on face, and rash to chest after taking doxycycline. Denies any itching. No vomiting or diarrhea. Remains afebrile. On antibiotics. Discussed plan of care and follow-up with patient at bedside ROS: Negative except as above Review of Systems Social History: Social History Socioeconomic History Marital status: Spouse name: Not on file Number of children: Not on file Years of education: Not on file Highest education level: Some college, no degree Occupational History Not on file Tobacco Use Smoking status: Never Smokeless tobacco: Never Vaping Use Vaping status: Never Used Substance and Sexual Activity Alcohol use: Yes Comment: Socially Drug use: Never Sexual activity: Not on file Other Topics Concern Not on file Social History Narrative Not on file Social Determinants of Health Financial Resource Strain: Low Risk (02/27/2022) Overall Financial Resource Strain (CARDIA) Difficulty of Paying Living Expenses: Not hard at all Food Insecurity: No Food Insecurity (12/03/2023) Hunger Screening Food Insecurity - Worry: Never True Food Insecurity - Inability: Never True Transportation Needs: No Transportation Needs (12/03/2023) PRAPARE - Transportation Lack of Transportation (Medical): No Lack of Transportation (Non-Medical): No Physical Activity: Sufficiently Active (02/27/2022) Exercise Vital Sign Days of Exercise per Week: 3 days Minutes of Exercise per Session: 60 min Stress: Stress Concern Present (02/27/2022) [place] Citizen [place] [employer] Occupational [employer] - Occupational Stress Questionnaire Feeling of Stress : To some extent Social Connections: Socially Integrated (02/27/2022) Social Connection and Isolation Panel [NHANES] Frequency of Communication with Friends and Family: Twice a week Frequency of Social Gatherings with Friends and Family: Three times a week Attends Gnosticist Services: More than 4 times per year Active Member of Clubs or Organizations: Yes Attends Club or Organization Meetings: 1 to 4 times per year Marital Status: Interpersonal Safety: Not At Risk (12/03/2023) Humiliation, Afraid, Rape, and Kick questionnaire Fear of Current or Ex-Partner: No Emotionally Abused: No Physically Abused: No Sexually Abused: No Housing Instability: Low Risk (12/03/2023) Housing Instability Housing Instability: No Family History: Family History Adopted: Yes Physical Examination : Vitals: 12/08/23 2348 12/09/23 0344 12/09/23 0914 12/09/23 1155 BP: 124/65 138/83 125/70 Pulse: 72 78 80 75 Resp: 18 18 18 Temp: 36.4 C (97.6 F) 36.8 C (98.3 F) 36.7 C (98.1 F) 36.4 C (97.5 F) TempSrc: Oral Oral Oral Oral SpO2: 95% 97% 98% 99% Weight: Height: Temperature Range: Temp: 36.4 C (97.5 F) Temp Av.6 C (97.9 F) Min: 36.4 C (97.5 F) Max: 36.8 C(98.3 F) Physical Exam CONSTITUTIONAL: awake, alert, cooperative, no apparent distress, LUNGS: No increased work of breathing, no crackles or wheezing CARDIOVASCULAR: regular rate and rhythm ABDOMEN: normal bowel sounds, soft, non-distended, non-tender MUSCULOSKELETAL:both upper and lower extremities with no redness, warmth, or swelling SKIN: Facial flushing, chest rash NEUROLOGIC: Awake, alert, oriented to name, place and time. Follow commands. Cranial nerves grosslyintact Laboratory data: I have independently reviewed the following labs: Results from last 7 days Lab Units 12/09/2351012/08/23 0514 12/07/23 0450 WBC X10E9/L 4.3 2.9* 2.7* HEMOGLOBIN g/dL 7.4* 8.1* 7.8* HEMATOCRIT % 22.0* 23.1* 22.3* PLATELETS X10E9/L 153 147* 150 Results from last 7 days Lab Units 12/09/23 0511 12/08/23 2045 12/08/23 1303 12/08/23 0514 12/07/23 0450 POTASSIUM mmol/L 3.8 3.8 3.3* 3.2* 3.3* CHLORIDE mmol/L 106 -- -- 101 102 CO2 mmol/L 26 -- -- 27 28 BUN mg/dL 23 -- -- 24* 27* CREATININE mg/dL 1.50* -- -- 1.89* 2.07* EGFR (CKD-EPI)NON-RACE DEPENDENT ml/min/1.73sq.m 41* -- -- 31* 28* CALCIUM mg/dL 8.7 -- -- 8.7 8.8 MAGNESIUM mg/dL 1.8 -- 2.5 1.5* 2.0 Results from last 7 days Lab Units 12/09/23 0512/08/23 0514 12/07/23 0450 ALK PHOS U/L 66 64 56 ALT U/L 30 18 13 AST U/L 39 28 22 Lab Results Component Value Date CRP 2.6 (H) 11/26/2023 Lab Results Component Value Date SEDRATE 30 11/26/2023 Cultures: Microbiology Results Procedure Component Value Units Date/Time Resp Pathogens Panel/SARS CoV-2 [[id number]] Collected: 12/05/23 1158 Specimen: Nasopharynx Updated: 12/05/23 1635 Specimen Source NASO PHARYNX Adenovirus Detection by PCR Not Detected Coronavirus 229e Not Detected Coronavirus hku1 Not Detected Coronavirus nl63 Not Detected Coronavirus oc43 Not Detected Human metapneumovirus Not Detected Rhinovirus/enterovirus Not Detected Influenza A Not Detected Influenza B Not Detected Parainfluenza 1 Not Detected Parainfluenza 2 Not Detected Parainfluenza 3 Not Detected Parainfluenza 4 Not Detected Respiratory syncytial virus Not Detected Bordetella parapertussis Not Detected Bordetella pertussis Not Detected Chlamydophila pneumophilia Not Detected Mycoplasma pneumoniae Not Detected SARS COV 2 Not Detected Blood culture #2 [[id number]] Collected: 12/05/23 1040 Specimen: Blood Updated: 12/08/23 1508 Culture NO GROWTH 3 DAYS Blood culture #1 [[id number]] Collected: 12/05/23 1031 Specimen: Blood Updated: 12/08/23 1507 Culture NO GROWTH 3 DAYS Urine culture [[id number]] Collected: 12/02/23 2305 Specimen: Urine, Clean Catch Midstream Updated: 12/04/23 0709 Culture NO GROWTH AT <1000 CFU/mL Blood culture [[id number]] Collected: 12/02/23 2231 Specimen: Blood, Line Draw Updated: 12/08/23 0817 Specimen Notes SUBOPTIMAL VOLUME OF BLOOD COLLECTED, RESULTS MAY BE AFFECTED. Culture NO GROWTH 5 DAYS Blood culture [[id number]] Collected: 12/02/23 2213 Specimen: Blood, Line Draw Updated: 12/08/23812 Specimen Notes SUBOPTIMAL VOLUME OF BLOOD COLLECTED, RESULTS MAY BE AFFECTED. Culture NO GROWTH 5 DAYS Imaging Studies: No results found. Medications: apixaban, 5 mg, oral, BID ciprofloxacin HCl, 500 mg, oral, Q12H RADHA clarithromycin, 500 mg, oral, Q12H RADHA cyanocobalamin, 1,000 mcg, oral, Daily hydrocortisone, 1 Application, topical, BID imipenem-cilastatin, 500 mg, intravenous, Q12H magnesium oxide, 400 mg, oral, BID metoprolol succinate XL, 100 mg, oral, BID potassium chloride, 20 mEq, oral, Daily sodium chloride, 3 mL, intravenous, Q12H [facility] Thank you for allowing us to participate in the care of this patient. Please call with questions. Gino Munguia APRN, GARMENT STEAMER [phone] This note was completed using a voice advertising representative system. Every effort was made to ensure accuracy. However, inadvertent computerized advertising representative errors may be present. Gino Munguia APRN-GARMENT STEAMER 12/09/23 9346 ICarlene MD, personally performed lsbs-di-htwd diagnostic evaluation on this patient I reviewed and performed all the ross component of the patient visit I reviewed CELINA history, exam and MDM - Carlene Noguera MD 12/09/23 2:08 PM * Amy Jack MD - 12/08/2023 5:15 PM EDT Images from the original note were not included. [facility] PHYSICIANS [facility] INTERNAL MEDICINE [facility] - ONCOLOGY/STROKE [address] [place] [address] Hospital Medicine Progress Note Patient: Ike Jones Date of : 1970 Room: [facility] PCP: MEGHNA DIAZGARMENT STEAMER Admission date: 12/02/2023 9:55 PM Encounter date: 12/08/23 Hospital Day: 7 SUBJECTIVE Chief complaints: Chief Complaint Patient presents with Post-op Problem Patient states she had an infected L breast implant and was started on abx on Nov 25. Patient states that on Thursday the implant was removed and Wednesday 11/29 she was discharged from the hospital. Patient states she has been doing her own abx infusions at home through her port since then and saw Dr. Rosado today. Patient states she started having a low grade fever and chills and was sent by [facility] No fever overnight patient's rash improved after receiving steroids otherwise denies chest pain or shortness for breath, overall she feels she is doing better. OBJECTIVE BP 121/75 Pulse 83 Temp 36.6 C (97.9 F) (Oral) Resp 18 Ht 180.3 cm (5' 11 ) Wt 98.5 kg (217 lb 2.5 oz) SpO2 99% BMI 30.29 kg/m Temp: [36.6 C (97.9 F)-37.6 C (99.7 F)] 36.6 C (97.9 F) Pulse: [79-89] 83 Resp: [14-18] 18 BP: (120-142)/(72-91) 121/75 SpO2: [95 %-100 %] 99 % O2 Device: None (Room air) Intake/Output Summary (Last 24 hours) at 12/08/2023 1715 Last data filed at 12/08/2023 1600 Gross per 24 hour Intake 3950.46 ml Output 1250 ml Net 2700.46 ml Physical Exam Vitals reviewed. Constitutional: General: She is not in acute distress. Appearance: Normal appearance. She is well-developed. HENT: Head: Normocephalic and atraumatic. Right Ear: External ear normal. Left Ear: External ear normal. Nose: Nose normal. Right Sinus: No maxillary sinus tenderness or frontal sinus tenderness. Left Sinus: No maxillary sinus tenderness or frontal sinus tenderness. Mouth/Throat: Lips: [place]. Mouth: Mucous membranes are moist. Pharynx: Oropharynx is clear. Eyes: General: No scleral icterus. Extraocular Movements: Extraocular movements intact. Pupils: Pupils are equal, round, and reactive to light. Neck: Vascular: No carotid bruit or JVD. Cardiovascular: Rate and Rhythm: Normal rate and regular rhythm. Pulses: Radial pulses are 2+ on the right side and 2+ on the left side. Heart sounds: Normal heart sounds, S1 normal and S2 normal. No murmur heard. No friction rub. No gallop. Pulmonary: Effort: Pulmonary effort is normal. Breath sounds: Normal breath sounds. No decreased breath sounds, wheezing, rhonchi or rales. Abdominal: General: Bowel sounds are normal. Palpations: Abdomen is soft. Tenderness: There is no abdominal tenderness. Musculoskeletal: Right lower leg: No edema. Left lower leg: No edema. Skin: General: Skin is warm and dry. Capillary Refill: Capillary refill takes less than 2 seconds. Findings: Erythema, rash and wound present. Comments: Surgical site examined, appears clean and dry. Mild erythema noted Neurological: General: No focal deficit present. Mental Status: She is alert and oriented to person, place, and time. Psychiatric: Attention and Perception: Attention normal. Mood and Affect: Mood and affect normal. Behavior: Behavior normal. Behavior is cooperative. Medications Scheduled: apixaban, 5 mg, oral, BID ciprofloxacin HCl, 500 mg, oral, Q12H RADHA clarithromycin, 500 mg, oral, Q12H RADHA cyanocobalamin, 1,000 mcg, oral, Daily hydrocortisone, 1 Application, topical, BID imipenem-cilastatin, 500 mg, intravenous, Q12H magnesium oxide, 400 mg, oral, BID metoprolol succinate XL, 100 mg, oral, BID potassium chloride, 20 mEq, oral, Daily sodium chloride, 3 mL, intravenous, Q12H RADHA Infusions: As Needed: acetaminophen albuterol xuvffze-jkrscyncnogxs-gjtqykpe calcium gluconate calcium gluconate calcium gluconate cyclobenzaprine dextrose dextrose 50 % in water (D50W) diphenhydrAMINE hydrALAZINE labetaloL magnesium sulfate magnesium sulfate ondansetron oxyCODONE potassium chloride OR potassium chloride sennosides-docusate sodium sodium phosphate IV OR sodium phosphate IV - central line OR sod phos di, mono-K phos mono sodium chloride traZODone Allergies: Meperidine, Daptomycin, Tigecycline, and Adhesive Code Status: Full Code Labs Recent Results (from the past 24 hour(s)) Comprehensive metabolic panel Collection Time: 12/08/23 5:14 AM Result Value Ref Range Sodium 136 134 - 146 mmol/L Potassium, Bld 3.2 (L) 3.5 - 5.0 mmol/L Chloride 101 98 - 109 mmol/L CO2 27 22 - 32 mmol/L Anion gap 8 5 - 15 mmol/L BUN 24 (H) 5 - 23 mg/dL Creatinine 1.89 (H) 0.40 - 1.00 mg/dL Glucose 99 65 - 99 mg/dL Calcium 8.7 8.5 - 10.5 mg/dL Total Protein 5.6 (L) 6.0 - 8.0 g/dL Albumin 3.2 3.2 - 5.3 g/dL Alkaline Phosphatase 64 39 - 130 U/L AST 28 0 - 41 U/L ALT 18 0 - 31 U/L Total bilirubin 0.6 0.3 - 1.2 mg/dL eGFR (CKD-EPI)non-race dependent 31 (L) >59 ml/min/1.73sq.m Magnesium Collection Time: 12/08/23 5:14 AM Result Value Ref Range Magnesium 1.5 (L) 1.8 - 2.6 mg/dL CBC auto differential Collection Time: 12/08/23 5:14 AM Result Value Ref Range White Blood Cells 2.9 (L) 4.0 - 11.0 X10E9/L RBC count 2.61 (L) 3.80 - 5.20 X10E12/L Hemoglobin 8.1 (L) 11.7 - 15.5 g/dL Hematocrit 23.1 (L) 35 - 47 % MCV 89 80 - 100 fL MCH 31.1 27 - 34 pg MCHC 35.1 32 - 36 g/dL RDW 14.4 11.5 - 15.0 % Platelets 147 (L) 150 - 450 X10E9/L MPV 7.5 7 - 12 fL Seg neutrophil 69.0 % Lymphocyte 14.0 % Monocytes 9.0 % Eosinophil 7.0 % Basophil 1.0 % Neutrophils Absolute (M) 2.0 1.5 - 6.6 X10E9/L Lymphocytes Absolute 0.4 (L) 1.0 - 3.5 X10E9/L Monocytes Absolute 0.3 0 - 0.9 X10E9/L Eosinophils Absolute 0.2 0.0 - 0.4 X10E9/L Basophils Absolute 0.0 0.0 - 0.2 X10E9/L RBC Morphology REVIEWED Phosphorus Collection Time: 12/08/23 5:14 AM Result Value Ref Range Phosphorus 4.1 2.4 - 4.9 mg/dL Magnesium Collection Time: 12/08/23 1:03 PM Result Value Ref Range Magnesium 2.5 1.8 - 2.6 mg/dL Potassium Collection Time: 12/08/23 1:03 PM Result Value Ref Range Potassium, Bld 3.3 (L) 3.5 - 5.0 mmol/L Radiology No results found. HOSPITAL PROBLEM LIST Principal Problem: MIRNA (acute kidney injury) ([facility]) Active Problems: Hypertension Malignant neoplasm of lower-inner quadrant of right breast of female, estrogen receptor positive ([facility]) Cellulitis of left breast Infection of deep incisional surgical site after procedure ASSESSMENT & PLAN # allergic skin reaction, likely drugs induced, improved # Acute kidney injury, ATN, multifactorial in the setting of decreased p.o. intake, infection, and nephrotoxic pharmacological agents # Post-operative infection of left breast implant, culture growing mycobacterium abscessus # History of DVT # Right breast cancer, s/p bilateral mastectomy # HTN # Normocytic normochromic anemia # b12 deficeincy -nephrology following, dc IV fluids, check BMP 1 week and follow up with Nephrology -infectious disease and plastic surgery following, referral sent to [facility] ID -continue cipro and clarithromycin, imipenem -benadryl PRN -follow cultures -Continue eliquis -Hold lisinopril, lasix and spironolactone until MIRNA improves -replace B12 -replace and monitor electrolytes per protocol and scale Amy Jack MD * Gino Munguia APRN-GARMENT STEAMER - 12/08/2023 5:13 PM EDT [facility] - Daily Progress Note Ike Jones Admission date/time 12/02/2023 9:55 PM Today's Date and Time: 12/08/2023, 5:14 PM Impression : 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 Lui for termite technician management If patient remains afebrile, we will plan for 1 month course of antibiotics and follow-up with Dr. Lui for continued treatment Follow-up CBC renal function WBC 2.9, creatinine 1.89 Follow-up temperature -afebrile since 12/06 at midnight Supportive care FOLLOW UP/chief complaints Breast surgical site infection Interval History: Patient is sitting up in bed. States feels better today. No vomiting or diarrhea. Rash has improved. Afebrile overnight. On antibiotics. Discussed plan of care with patient ROS: Negative except as above Review of Systems Social History: Social History Socioeconomic History Marital status: Spouse name: Not on file Number of children: Not on file Years of education: Not on file Highest education level: Some college, no degree Occupational History Not on file Tobacco Use Smoking status: Never Smokeless tobacco: Never Vaping Use Vaping status: Never Used Substance and Sexual Activity Alcohol use: Yes Comment: Socially Drug use: Never Sexual activity: Not on file Other Topics Concern Not on file Social History Narrative Not on file Social Determinants of Health Financial Resource Strain: Low Risk (02/27/2022) Overall Financial Resource Strain (CARDIA) Difficulty of Paying Living Expenses: Not hard at all Food Insecurity: No Food Insecurity (12/03/2023) Hunger Screening Food Insecurity - Worry: Never True Food Insecurity - Inability: Never True Transportation Needs: No Transportation Needs (12/03/2023) PRAPARE - Transportation Lack of Transportation (Medical): No Lack of Transportation (Non-Medical): No Physical Activity: Sufficiently Active (02/27/2022) Exercise Vital Sign Days of Exercise per Week: 3 days Minutes of Exercise per Session: 60 min Stress: Stress Concern Present (02/27/2022) [place] Citizen [place] [employer] Occupational Health - Occupational Stress Questionnaire Feeling of Stress : To some extent Social Connections: Socially Integrated (02/27/2022) Social Connection and Isolation Panel [NHANES] Frequency of Communication with Friends and Family: Twice a week Frequency of Social Gatherings with Friends and Family: Three times a week Attends Gnosticist Services: More than 4 times per year Active Member of Clubs or Organizations: Yes Attends Club or Organization Meetings: 1 to 4 times per year Marital Status: Interpersonal Safety: Not At Risk (12/03/2023) Humiliation, Afraid, Rape, and Kick questionnaire Fear of Current or Ex-Partner: No Emotionally Abused: No Physically Abused: No Sexually Abused: No Housing Instability: Low Risk (12/03/2023) Housing Instability Housing Instability: No Family History: Family History Adopted: Yes Physical Examination : Vitals: 12/08/23 0353 12/08/23 0920 12/08/23 1141 12/08/23 1621 BP: 130/76 133/80 (!) 120/91 121/75 Pulse: 79 85 86 83 Resp: 18 14 18 18 Temp: 36.9 C (98.5 F) 37.1 C (98.7 F) 36.7 C (98.1 F) 36.6 C (97.9 F) TempSrc: Oral Oral Oral Oral SpO2: 98% 100% 95% 99% Weight: Height: Temperature Range: Temp: 36.6 C (97.9 F) Temp Av C (98.6 F) Min: 36.6 C (97.9 F) Max: 37.6 C (99.7 F) Physical Exam CONSTITUTIONAL: awake, alert, cooperative, no apparent distress, LUNGS: No increased work of breathing, no crackles or wheezing CARDIOVASCULAR: regular rate and rhythm ABDOMEN: normal bowel sounds, soft, non-distended, non-tender MUSCULOSKELETAL:both upper and lower extremities with no redness, warmth, or swelling SKIN: Improving rash to arms, legs, and chest NEUROLOGIC: Awake, alert, oriented to name, place and time. Follow commands. Cranial nerves grosslyintact Laboratory data: I have independently reviewed the following labs: Results from last 7 days Lab Units 12/08/23 0514 12/07/23 04512/06/23 0435 WBC X10E9/L 2.9* 2.7* 3.0* HEMOGLOBIN g/dL 8.1* 7.8* 7.8* HEMATOCRIT % 23.1* 22.3* 23.0* PLATELETS X10E9/L 147* 150 172 Results from last 7 days Lab Units 12/08/23 1303 12/08/23 0514 12/07/23 0450 12/06/23 2110 12/06/23 0435 POTASSIUM mmol/L 3.3* 3.2* 3.3* -- 3.5 CHLORIDE mmol/L -- 101 102 -- 102 CO2 mmol/L -- 27 28 -- 26 BUN mg/dL -- 24* 27* -- 21 CREATININE mg/dL -- 1.89* 2.07* -- 2.34* EGFR (CKD-EPI)NON-RACE DEPENDENT ml/min/1.73sq.m -- 31* 28* -- 24* CALCIUM mg/dL -- 8.7 8.8 -- 9.0 MAGNESIUM mg/dL 2.5 1.5* 2.0 < > 1.5* < > = values in this interval not displayed. Results from last 7 days Lab Units 12/08/23 0514 12/07/23 0450 12/06/23 0435 ALK PHOS U/L 64 56 55 ALT U/L 18 13 9 AST U/L 28 22 16 Lab Results Component Value Date CRP 2.6 (H) 11/26/2023 Lab Results Component Value Date SEDRATE 30 11/26/2023 Cultures: Microbiology Results Procedure Component Value Units Date/Time Resp Pathogens Panel/SARS CoV-2 [[id number]] Collected: 12/05/23 1158 Specimen: Nasopharynx Updated: 12/05/23 1635 Specimen Source NASO PHARYNX Adenovirus Detection by PCR Not Detected Coronavirus 229e Not Detected Coronavirus hku1 Not Detected Coronavirus nl63 Not Detected Coronavirus oc43 Not Detected Human metapneumovirus Not Detected Rhinovirus/enterovirus Not Detected Influenza A Not Detected Influenza B Not Detected Parainfluenza 1 Not Detected Parainfluenza 2 Not Detected Parainfluenza 3 Not Detected Parainfluenza 4 Not Detected Respiratory syncytial virus Not Detected Bordetella parapertussis Not Detected Bordetella pertussis Not Detected Chlamydophila pneumophilia Not Detected Mycoplasma pneumoniae Not Detected SARS COV 2 Not Detected Blood culture #2 [[id number]] Collected: 12/05/23 1040 Specimen: Blood Updated: 12/08/23 1508 Culture NO GROWTH 3 DAYS Blood culture #1 [[id number]] Collected: 12/05/23 1031 Specimen: Blood Updated: 12/08/23 1507 Culture NO GROWTH 3 DAYS Urine culture [[id number]] Collected: 12/02/23 2305 Specimen: Urine, Clean Catch Midstream Updated: 12/04/23 0709 Culture NO GROWTH AT <1000 CFU/mL Blood culture [[id number]] Collected: 12/02/23 2231 Specimen: Blood, Line Draw Updated: 12/08/23 0817 Specimen Notes SUBOPTIMAL VOLUME OF BLOOD COLLECTED, RESULTS MAY BE AFFECTED. Culture NO GROWTH 5 DAYS Blood culture [[id number]] Collected: 12/02/232212 Specimen: Blood, Line Draw Updated: 12/08/23812 Specimen Notes SUBOPTIMAL VOLUME OF BLOOD COLLECTED, RESULTS MAY BE AFFECTED. Culture NO GROWTH 5 DAYS Imaging Studies: No results found. Medications: apixaban, 5 mg, oral, BID ciprofloxacin HCl, 500 mg, oral, Q12H RADHA clarithromycin, 500 mg, oral, Q12H RADHA cyanocobalamin, 1,000 mcg, oral, Daily hydrocortisone, 1 Application, topical, BID imipenem-cilastatin, 500 mg, intravenous, Q12H magnesium oxide, 400 mg, oral, BID metoprolol succinate XL, 100 mg, oral, BID potassium chloride, 20 mEq, oral, Daily sodium chloride, 3 mL, intravenous, Q12H RADHA Thank you for allowing us to participate in the care of this patient. Please call with questions. Gino Munguia APRN, CNP [phone] This note was completed using a voice advertising representative system. Every effort was made to ensure accuracy. However, inadvertent computerized advertising representative errors may be present. AMEENA Vallejo 12/08/23 1719 * Shereen Smallwood PA-C - 12/08/2023 3:46 PM EDT [facility] [address] [place] [address] Office Jhon Rosado MD, PhD Marisela Cuevas APRN-ESPERANZA Smallwood PA-C Plastic Surgery Inpatient Progress Note Subjective: No acute events overnight. Patient was afebrile overnight. T-max was 37.2 . She states she feels much better today. She did have itching following the Tygacil yesterday but is feeling much better. She did recently receive prednisone. Objective: Patient is awake, alert and oriented she is sitting up supine in hospital bed. Pain appears well controlled at rest. Vitals: 12/08/23 1141 BP: (!) 120/91 Pulse: 86 Resp: 18 Temp: 36.7 C (98.1 F) SpO2: 95% Urine output - 4450 General: No acute distress, well appearing, nontoxic in appearance HEENT: Normocephalic, atraumatic, CN 2-12 grossly intact, V1-V3 grossly intact, EOMI Chest: Regular rate and rhythm Breasts: Right breast incision is well healed. Left breast incision also healing well. No drainage,no erythema, no calor, no current clinical concerns for infection. Extremities: Warm and well perfused, neurovascularly intact, SCDs on and running. Rash is still present but improving. Laboratory: Lab Results Component Value Date WBC 2.9 (L) 12/08/2023 HGB 8.1 (L) 12/08/2023 HCT 23.1 (L) 12/08/2023 MCV 89 12/08/2023 PLT 147 (L) 12/08/2023 Lab Results Component Value Date GLU 99 12/08/2023 CALCIUM 8.7 12/08/2023 K 3.3 (L) 12/08/2023 CO2 27 12/08/2023 BUN 24 (H) 12/08/2023 CREATININE 1.89 (H) 12/08/2023 Microbiology Results Procedure Component Value Units Date/Time Resp Pathogens Panel/SARS CoV-2 [[id number]] Collected: 12/05/23 1158 Specimen: Nasopharynx Updated: 12/05/23 1635 Specimen Source NASO PHARYNX Adenovirus Detection by PCR Not Detected Coronavirus 229e Not Detected Coronavirus hku1 Not Detected Coronavirus nl63 Not Detected Coronavirus oc43 Not Detected Human metapneumovirus Not Detected Rhinovirus/enterovirus Not Detected Influenza A Not Detected Influenza B Not Detected Parainfluenza 1 Not Detected Parainfluenza 2 Not Detected Parainfluenza 3 Not Detected Parainfluenza 4 Not Detected Respiratory syncytial virus Not Detected Bordetella parapertussis Not Detected Bordetella pertussis Not Detected Chlamydophila pneumophilia Not Detected Mycoplasma pneumoniae Not Detected SARS COV 2 Not Detected Blood culture #2 [[id number]] Collected: 12/05/23 1040 Specimen: Blood Updated: 12/08/23 1508 Culture NO GROWTH 3 DAYS Blood culture #1 [[id number]] Collected: 12/05/23 1031 Specimen: Blood Updated: 12/08/23 1507 Culture NO GROWTH 3 DAYS Urine culture [[id number]] Collected: 12/02/23 2305 Specimen: Urine, Clean Catch Midstream Updated: 12/04/23 0709 Culture NO GROWTH AT <1000 CFU/mL Blood culture [[id number]] Collected: 12/02/23 2231 Specimen: Blood, Line Draw Updated: 12/08/23 0817 Specimen Notes SUBOPTIMAL VOLUME OF BLOOD COLLECTED, RESULTS MAY BE AFFECTED. Culture NO GROWTH 5 DAYS Blood culture [[id number]] Collected: 12/02/23 2213 Specimen: Blood, Line Draw Updated: 12/08/23 0813 Specimen Notes SUBOPTIMAL VOLUME OF BLOOD COLLECTED, RESULTS MAY BE AFFECTED. Culture NO GROWTH 5 DAYS Assessment: Ike Jones is a 53 y.o. female Post-Operative Day: 11 s/p removal of left breast tissue tortilla maker with I&D. 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 She was counseled regarding my impressions, instructions for management and the importance of compliance with treatment. INÉS PAYNE MD, PhD [facility] Shereen Smallwood PA-C 12/08/23 1556 * Og Morton MD - 12/08/2023 2:47 PM EDT Images from the original note were not included. NEPHROLOGY PROGRESS NOTE Assessment 1. Acute kidney injury attributed to acute tubular necrosis in the setting of sepsis, renal function improving with creatinine down to 1.9 mg/dL today. 2. Left breast cellulitis following surgery on triple antimicrobial agents per Infectious disease service recommendation 3. Hypertension: Adequately controlled 4. Allergic reaction possibly to tigecycline improving after steroids and discontinuation of the offending agent. 5. Volume status: Her p.o. intake has improved, discontinue IV fluids Plan 1. Discontinue IV fluids 2. I have no objection to patient being discharged. 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 Subjective/Interval history She feels much better. She wants to go home. Problem List Acute kidney injury which could related to Acute Tubular Necrosis secondary to sepsis versus vancomycin nephrotoxicity versus volume depletion secondary to poor p.o. intake in the setting of ongoing intake of chlorthalidone, Lasix, lisinopril and spironolactone. From December of 2023 Renal ultrasound revealed right kidney of 11.4 cm left of 14.7 cm with no evidence of hydronephrosis, CPK was 52, serum protein electrophoresis was negative monoclonal bands, JUSTIN anti MPO anti PR3 and anti-GBM were negative, C3 was 158 and C4 was 38, urine dipstick was negative for blood or protein, fractional excretion of sodium was 1.8% and random urine protein to creatinine ratio was 0.3 grams/gram. Left breast cellulitis with infected seroma status post removal of left breast tortilla maker on November 27, 2023 Hypertension Edema Depression/anxiety DVT Right-sided breast cancer status post bilateral mastectomy with a lymph node dissection with subsequent bilateral breast reconstruction on October 28, 2023 MediPort placement Bilateral knee arthroscopy Tonsillectomy and adenoidectomy Physical Exam Admission Weight: Weight: 94.3 kg (208 lb) I/O last 3 completed shifts: In: 4725.5 [P.O.:3614; I.V.:748.8; IV Piggyback:362.6] Out: 4450 [Urine:4450] Weight change: Wt Readings from Last 3 Encounters: 12/05/23 98.5 kg (217 lb 2.5 oz) 12/02/23 95.2 kg (209 lb 14.1 oz) 11/28/23 95.2 kg (209 lb 14.1 oz) Vitals: Vitals: 12/07/23 2350 12/08/23 0353 12/08/23 0920 12/08/23 1141 BP: 133/72 130/76 133/80 (!) 120/91 Pulse: 89 79 85 86 Resp: 16 18 14 18 Temp: 37.6 C (99.7 F) 36.9 C (98.5 F) 37.1 C (98.7 F) 36.7 C (98.1 F) TempSrc: Oral Oral Oral Oral SpO2: 98% 98% 100% 95% Weight: Height: General: Alert, oriented x 3 and in no obvious distress Psychiatric: Has a normal mood and affect. HEENT: Head normocephalic. Eyes: Conjunctivae and EOM are normal. Pupils are equal, round and reactive to light. Cardiovascular: Normal rate, regular rhythm and normal heart sounds. No JVD. Pulmonary/Chest: Air entry bilaterally equal. No wheezes or rales. Abdominal: Soft, bowel sounds are normal and there was no tenderness rebound or guarding. Musculoskeletal: Normal range of motion. No tenderness. Neurological: No obvious deficits. Skin: Blanching drug rash noted Extremities: No significant peripheral edema Meds: Current Meds: apixaban, 5 mg, oral, BID ciprofloxacin HCl, 500 mg, oral, Q12H RADHA clarithromycin, 500 mg, oral, Q12H RADHA cyanocobalamin, 1,000 mcg, oral, Daily hydrocortisone, 1 Application, topical, BID imipenem-cilastatin, 500 mg, intravenous, Q12H magnesium oxide, 400 mg, oral, BID metoprolol succinate XL, 100 mg, oral, BID potassium chloride, 20 mEq, oral, Daily sodium chloride, 3 mL, intravenous, Q12H RADHA Continuous Infusions: lactated ringer's, 100 mL/hr, Last Rate: 100 mL/hr (12/08/2318) Laboratory Studies Results from last 7 days Lab Units 12/08/23 1303 12/08/23 0514 12/07/23 0450 12/06/23 2110 12/06/23 0435 SODIUM mmol/L -- 136 138 -- 137 POTASSIUM mmol/L 3.3* 3.2* 3.3* -- 3.5 CHLORIDE mmol/L -- 101 102 -- 102 CO2 mmol/L -- 27 28 -- 26 BUN mg/dL -- 24* 27* -- 21 CREATININE mg/dL -- 1.89* 2.07* -- 2.34* CALCIUM mg/dL -- 8.7 8.8 -- 9.0 PHOSPHORUS mg/dL -- 4.1 5.4* -- 5.0* MAGNESIUM mg/dL 2.5 1.5* 2.0 < > 1.5* < > = values in this interval not displayed. Results from last 7 days Lab Units 12/08/23 0514 12/07/23 0450 12/06/23 0435 WBC X10E9/L 2.9* 2.7* 3.0* HEMOGLOBIN g/dL 8.1* 7.8* 7.8* HEMATOCRIT % 23.1* 22.3* 23.0* PLATELETS X10E9/L 147* 150 172 Results from last 7 days Lab Units 12/08/23 1303 12/08/23 0514 12/07/23 0450 MAGNESIUM mg/dL 2.5 1.5* 2.0 Lab Results Component Value Date CALCIUM 8.7 12/08/2023 Lab Results Component Value Date IRON <10 (L) 12/04/2023 TIBC 272 12/04/2023 FERRITIN 8 (L) 01/31/2022 Please contact me at [phone] (Office) or [phone] (Answering service) with any questions. Please feel free to contact me through [email or web address] Secure chat during the daytime hours, if no response after 5 minutes then call the answering service. Og Morton MD [facility] This note was created with the assistance of a speech-recognition program. Although the intention is to generate a document that actually reflects the content of the visit, no guarantees can be provided that every mistake has been identified and corrected by editing. * Amy Jack MD - 12/07/2023 7:02 PM EDT Images from the original note were not included. [facility] - 7 ONCOLOGY/STROKE [address] [place] [address] Hospital Medicine Progress Note Patient: Ike Jones Date of : 1970 Room: [facility] PCP: AMEENA DIAZ Admission date: 12/02/2023 9:55 PM Encounter date: 12/07/23 Hospital Day: 6 SUBJECTIVE Chief complaints: Chief Complaint Patient presents with Post-op Problem Patient states she had an infected L breast implant and was started on abx on Nov 25. Patient states that on Thursday the implant was removed and Wednesday 11/29 she was discharged from the hospital. Patient states she has been doing her own abx infusions at home through her port since then and saw Dr. Rosado today. Patient states she started having a low grade fever and chills and was sent by infectious disease tonight At midnight showed a temperature of 102.6 , currently she does not have any fever, denies chest pain or shortness of breath. Patient developed acute diffuse itchy rash, received benadryl. OBJECTIVE BP 142/76 Pulse 89 Temp 36.8 C (98.3 F) (Oral) Resp 18 Ht 180.3 cm (5' 11 ) Wt 98.5 kg (217 lb 2.5 oz) SpO2 98% BMI 30.29 kg/m Temp: [36.7 C (98.1 F)-39.2 C (102.6 F)] 36.8 C (98.3 F) Pulse: [76-90] 89 Resp: [15-25] 18 BP: (118-144)/(76-100) 142/76 SpO2: [95 %-98 %] 98 % O2 Device: None (Room air) Intake/Output Summary (Last 24 hours) at 12/07/2023 1902 Last data filed at 12/07/2023 1823 Gross per 24 hour Intake 4225.46 ml Output 3550 ml Net 675.46 ml Physical Exam Vitals reviewed. Constitutional: General: She is not in acute distress. Appearance: Normal appearance. She is well-developed. HENT: Head: Normocephalic and atraumatic. Right Ear: External ear normal. Left Ear: External ear normal. Nose: Nose normal. Right Sinus: No maxillary sinus tenderness or frontal sinus tenderness. Left Sinus: No maxillary sinus tenderness or frontal sinus tenderness. Mouth/Throat: Lips: [place]. Mouth: Mucous membranes are moist. Pharynx: Oropharynx is clear. Eyes: General: No scleral icterus. Extraocular Movements: Extraocular movements intact. Pupils: Pupils are equal, round, and reactive to light. Neck: Vascular: No carotid bruit or JVD. Cardiovascular: Rate and Rhythm: Normal rate and regular rhythm. Pulses: Radial pulses are 2+ on the right side and 2+ on the left side. Heart sounds: Normal heart sounds, S1 normal and S2 normal. No murmur heard. No friction rub. No gallop. Pulmonary: Effort: Pulmonary effort is normal. Breath sounds: Normal breath sounds. No decreased breath sounds, wheezing, rhonchi or rales. Abdominal: General: Bowel sounds are normal. Palpations: Abdomen is soft. Tenderness: There is no abdominal tenderness. Musculoskeletal: Right lower leg: No edema. Left lower leg: No edema. Skin: General: Skin is warm and dry. Capillary Refill: Capillary refill takes less than 2 seconds. Findings: Erythema and wound present. No rash. Comments: Surgical site examined, appears clean and dry. Mild erythema noted Neurological: General: No focal deficit present. Mental Status: She is alert and oriented to person, place, and time. Psychiatric: Attention and Perception: Attention normal. Mood and Affect: Mood and affect normal. Behavior: Behavior normal. Behavior is cooperative. Medications Scheduled: apixaban, 5 mg, oral, BID ciprofloxacin HCl, 500 mg, oral, Q12H RADHA clarithromycin, 500 mg, oral, Q12H RDAHA cyanocobalamin, 1,000 mcg, oral, Daily imipenem-cilastatin, 500 mg, intravenous, Q12H magnesium oxide, 400 mg, oral, BID metoprolol succinate XL, 100 mg, oral, BID potassium chloride, 20 mEq, oral, Daily sodium chloride, 3 mL, intravenous, Q12H RADHA Infusions: lactated ringer's, 100 mL/hr As Needed: acetaminophen albuterol [id number]-[id number] calcium gluconate calcium gluconate calcium gluconate cyclobenzaprine dextrose dextrose 50 % in water (D50W) diphenhydrAMINE hydrALAZINE labetaloL magnesium sulfate magnesium sulfate ondansetron oxyCODONE potassium chloride OR potassium chloride sennosides-docusate sodium sodium phosphate IV OR sodium phosphate IV - central line OR sod phos di, mono-K phos mono sodium chloride traZODone Allergies: Meperidine, Daptomycin, Tigecycline, and Adhesive Code Status: Full Code Labs Recent Results (from the past 24 hour(s)) Magnesium Collection Time: 12/06/23 9:10 PM Result Value Ref Range Magnesium 2.3 1.8 - 2.6 mg/dL Comprehensive metabolic panel Collection Time: 12/07/23 4:50 AM Result Value Ref Range Sodium 138 134 - 146 mmol/L Potassium, Bld 3.3 (L) 3.5 - 5.0 mmol/L Chloride 102 98 - 109 mmol/L CO2 28 22 - 32 mmol/L Anion gap 8 5 - 15 mmol/L BUN 27 (H) 5 - 23 mg/dL Creatinine 2.07 (H) 0.40 - 1.00 mg/dL Glucose 99 65 - 99 mg/dL Calcium 8.8 8.5 - 10.5 mg/dL Total Protein 5.6 (L) 6.0 - 8.0 g/dL Albumin 3.1 (L) 3.2 - 5.3 g/dL Alkaline Phosphatase 56 39 - 130 U/L AST 22 0 - 41 U/L ALT 13 0 - 31 U/L Total bilirubin 0.5 0.3 - 1.2 mg/dL eGFR (CKD-EPI)non-race dependent 28 (L) >59 ml/min/1.73sq.m Magnesium Collection Time: 12/07/23 4:50 AM Result Value Ref Range Magnesium 2.0 1.8 - 2.6 mg/dL CBC auto differential Collection Time: 12/07/23 4:50 AM Result Value Ref Range White Blood Cells 2.7 (L) 4.0 - 11.0 X10E9/L RBC count 2.52 (L) 3.80 - 5.20 X10E12/L Hemoglobin 7.8 (L) 11.7 - 15.5 g/dL Hematocrit 22.3 (L) 35 - 47 % MCV 88 80 - 100 fL MCH 30.9 27 - 34 pg MCHC 34.9 32 - 36 g/dL RDW 14.2 11.5 - 15.0 % Platelets 150 150 - 450 X10E9/L MPV 6.9 (L) 7 - 12 fL % neutrophils 60.2 % % lymphocytes 19.6 % % monocytes 12.5 % % eosinophils 7.0 % % Basophils 0.7 % Neutrophils Absolute (A) 1.6 1.5 - 6.6 X10E9/L Lymphocytes Absolute 0.5 (L) 1.0 - 3.5 X10E9/L Monocytes Absolute 0.3 0 - 0.9 X10E9/L Eosinophils Absolute 0.2 0.0 - 0.4 X10E9/L Basophils Absolute 0.0 0.0 - 0.2 X10E9/L Phosphorus Collection Time: 12/07/23 4:50 AM Result Value Ref Range Phosphorus 5.4 (H) 2.4 - 4.9 mg/dL Radiology No results found. HOSPITAL PROBLEM LIST Principal Problem: MIRNA (acute kidney injury) ([facility]) Active Problems: Hypertension Malignant neoplasm of lower-inner quadrant of right breast of female, estrogen receptor positive ([facility]) Cellulitis of left breast Infection of deep incisional surgical site after procedure ASSESSMENT & PLAN # allergic skin reaction, likely drugs induced # Acute kidney injury, ATN, multifactorial in the setting of decreased p.o. intake, infection, and nephrotoxic pharmacological agents # Post-operative infection of left breast implant, culture growing mycobacterium abscessus # History of DVT # Right breast cancer, s/p bilateral mastectomy # HTN # Normocytic normochromic anemia # b12 deficeincy -nephrology following, continue IV fluids -infectious disease and plastic surgery following -continue cipro and clarithromycin, imipenem, dc tigecycline due to rash -benadryl PRN -follow cultures -Continue eliquis -Hold lisinopril, lasix and spironolactone until MIRNA improves -replace B12 -replace and monitor electrolytes per protocol and scale Amy Jack MD * Og Morton MD - 12/07/2023 5:26 PM EDT Images from the original note were not included. NEPHROLOGY PROGRESS NOTE Assessment 1. Acute kidney injury attributed to acute tubular necrosis in the setting of sepsis, renal function improving with creatinine down to 2.1 mg/dL today. 2. Left breast cellulitis following surgery on triple antimicrobial agents per Infectious disease service recommendation 3. Hypertension: Adequately controlled 4. Allergic reaction 5. Volume status: Continue maintenance IV fluids Plan 1. Continue maintenance IV fluids 2. We will need to figure out what set off the allergic reaction Subjective/Interval history She appears to have developed a drug rash. Problem List Acute kidney injury which could related to Acute Tubular Necrosis secondary to sepsis versus vancomycin nephrotoxicity versus volume depletion secondary to poor p.o. intake in the setting of ongoing intake of chlorthalidone, Lasix, lisinopril and spironolactone. From December of 2023 Renal ultrasound revealed right kidney of 11.4 cm left of 14.7 cm with no evidence of hydronephrosis, CPK was 52, serum protein electrophoresis was negative monoclonal bands, JUSTIN anti MPO anti PR3 and anti-GBM were negative, C3 was 158 and C4 was 38, urine dipstick was negative for blood or protein, fractional excretion of sodium was 1.8% and random urine protein to creatinine ratio was 0.3 grams/gram. Left breast cellulitis with infected seroma status post removal of left breast tortilla maker on November 27, 2023 Hypertension Edema Depression/anxiety DVT Right-sided breast cancer status post bilateral mastectomy with a lymph node dissection with subsequent bilateral breast reconstruction on October 28, 2023 MediPort placement Bilateral knee arthroscopy Tonsillectomy and adenoidectomy Physical Exam Admission Weight: Weight: 94.3 kg (208 lb) I/O last 3 completed shifts: In: 7221.2 [P.O.:2500; I.V.:4057.3; IV Piggyback:663.9] Out: 1100 [Urine:1100] Weight change: Wt Readings from Last 3 Encounters: 12/05/23 98.5 kg (217 lb 2.5 oz) 12/02/23 95.2 kg (209 lb 14.1 oz) 11/28/23 95.2 kg (209 lb 14.1 oz) Vitals: Vitals: 12/07/23 0742 12/07/23 1240 12/07/23 1243 12/07/23 1721 BP: 129/79 138/78 142/76 Pulse: 80 89 Resp: 25 19 18 Temp: 36.9 C (98.4 F) 36.9 C (98.4 F) 36.8 C (98.3 F) TempSrc: Oral Oral Oral SpO2: 98% 95% 98% Weight: Height: General: Alert, oriented x 3 and in no obvious distress Psychiatric: Has a normal mood and affect. HEENT: Head normocephalic. Eyes: Conjunctivae and EOM are normal. Pupils are equal, round and reactive to light. Cardiovascular: Normal rate, regular rhythm and normal heart sounds. No JVD. Pulmonary/Chest: Air entry bilaterally equal. No wheezes or rales. Abdominal: Soft, bowel sounds are normal and there was no tenderness rebound or guarding. Musculoskeletal: Normal range of motion. No tenderness. Neurological: No obvious deficits. Skin: Blanching drug rash noted Extremities: No significant peripheral edema Meds: Current Meds: apixaban, 5 mg, oral, BID ciprofloxacin HCl, 500 mg, oral, Q12H RADHA clarithromycin, 500 mg, oral, Q12H RADHA cyanocobalamin, 1,000 mcg, oral, Daily imipenem-cilastatin, 500 mg, intravenous, Q12H magnesium oxide, 400 mg, oral, BID metoprolol succinate XL, 100 mg, oral, BID potassium chloride, 20 mEq, oral, Daily sodium chloride, 3 mL, intravenous, Q12H RADHA Continuous Infusions: lactated ringer's, 100 mL/hr Laboratory Studies Results from last 7 days Lab Units 12/07/2344912/06/23 2110 12/06/23 0435 12/05/23 1320 12/05/23 0545 SODIUM mmol/L 138 -- 137 -- 139 POTASSIUM mmol/L 3.3* -- 3.5 3.6 3.6 CHLORIDE mmol/L 102 -- 102 -- 105 CO2 mmol/L 28 -- 26 -- 26 BUN mg/dL 27* -- 21 -- 19 CREATININE mg/dL 2.07* -- 2.34* -- 2.61* CALCIUM mg/dL 8.8 -- 9.0 -- 9.4 PHOSPHORUS mg/dL 5.4* -- 5.0* -- 4.1 MAGNESIUM mg/dL 2.0 2.3 1.5* 1.8 1.5* Results from last 7 days Lab Units 12/07/2344912/06/23 0435 12/05/23 0545 WBC X10E9/L 2.7* 3.0* 3.9* HEMOGLOBIN g/dL 7.8* 7.8* 7.6* HEMATOCRIT % 22.3* 23.0* 22.2* PLATELETS X10E9/L 150 172 195 Results from last 7 days Lab Units 12/07/23 0450 12/06/23 2110 12/06/23 0435 MAGNESIUM mg/dL 2.0 2.3 1.5* Lab Results Component Value Date CALCIUM 8.8 12/07/2023 Lab Results Component Value Date IRON <10 (L) 12/04/2023 TIBC 272 12/04/2023 FERRITIN 8 (L) 01/31/2022 Please contact me at [phone] (Office) or [phone] (Answering service) with any questions. Please feel free to contact me through [email or web address] Secure chat during the daytime hours, if no response after 5 minutes then call the answering service. Og Morton MD [facility] This note was created with the assistance of a speech-recognition program. Although the intention is to generate a document that actually reflects the content of the visit, no guarantees can be provided that every mistake has been identified and corrected by editing. 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 New rash Acute kidney injury History of breast cancer S/p bilateral mastectomies S/p bilateral breast reconstruction October 28, 2023 History of DVT-on Eliquis Presence of [place] Recommendations: Breast surgical cultures with Mycobacterium abscessus Repeat blood cultures with no growth at 1 day Continue Cipro and clarithromycin Continue imipenem Patient developed rash after tigecycline infusion-discontinued today Follow-up CBC renal function WBC 2.7, creatinine 2.07 Follow-up temperature -still having fevers with T-max 102.6 overnight Supportive care FOLLOW UP/chief complaints Breast surgical site infection Interval History: Patient continues to have fevers. Developed rash on arms, legs, and chest after tigecycline infusion. Also having nausea this morning with 1 episode of emesis. Breathing is stable. Patient tearful-support given. On antibiotics. ROS: Negative except as above Review of Systems Social History: Social History Socioeconomic History Marital status: Spouse name: Not on file Number of children: Not on file Years of education: Not on file Highest education level: Some college, no degree Occupational History Not on file Tobacco Use Smoking status: Never Smokeless tobacco: Never Vaping Use Vaping status: Never Used Substance and Sexual Activity Alcohol use: Yes Comment: Socially Drug use: Never Sexual activity: Not on file Other Topics Concern Not on file Social History Narrative Not on file Social Determinants of Health Financial Resource Strain: Low Risk (02/27/2022) Overall Financial Resource Strain (CARDIA) Difficulty of Paying Living Expenses: Not hard at all Food Insecurity: No Food Insecurity (12/03/2023) Hunger Screening Food Insecurity - Worry: Never True Food Insecurity - Inability: Never True Transportation Needs: No Transportation Needs (12/03/2023) PRAPARE - Transportation Lack of Transportation (Medical): No Lack of Transportation (Non-Medical): No Physical Activity: Sufficiently Active (02/27/2022) Exercise Vital Sign Days of Exercise per Week: 3 days Minutes of Exercise per Session: 60 min Stress: Stress Concern Present (02/27/2022) [place] Citizen [place] [employer] Occupational Health - Occupational Stress Questionnaire Feeling of Stress : To some extent Social Connections: Socially Integrated (02/27/2022) Social Connection and Isolation Panel [NHANES] Frequency of Communication with Friends and Family: Twice a week Frequency of Social Gatherings with Friends and Family: Three times a week Attends Gnosticist Services: More than 4 times per year Active Member of Clubs or Organizations: Yes Attends Club or Organization Meetings: 1 to 4 times per year Marital Status: Interpersonal Safety: Not At Risk (12/03/2023) Humiliation, Afraid, Rape, and Kick questionnaire Fear of Current or Ex-Partner: No Emotionally Abused: No Physically Abused: No Sexually Abused: No Housing Instability: Low Risk (12/03/2023) Housing Instability Housing Instability: No Family History: Family History Adopted: Yes Physical Examination : Vitals: 12/07/23 0008 12/07/23 0137 12/07/23 0448 12/07/23 0742 BP: (!) 123/100 118/78 129/79 Pulse: 90 76 80 Resp: 15 19 25 Temp: (!) 39.2 C (102.6 F) 36.7 C (98.1 F) 36.8 C (98.3 F) 36.9 C (98.4 F) TempSrc: Oral Oral Oral Oral SpO2: 97% 95% 98% Weight: Height: Temperature Range: Temp: 36.9 C (98.4 F) Temp Av.2 C (98.9 F) Min: 36.7 C (98.1 F) Max: 39.2 C(102.6 F) Physical Exam CONSTITUTIONAL: awake, alert, cooperative, no apparent distress, LUNGS: No increased work of breathing, no crackles or wheezing CARDIOVASCULAR: regular rate and rhythm ABDOMEN: normal bowel sounds, soft, non-distended, non-tender MUSCULOSKELETAL:both upper and lower extremities with no redness, warmth, or swelling SKIN: New rash to arms, legs, and chest NEUROLOGIC: Awake, alert, oriented to name, place and time. Follow commands. Cranial nerves grosslyintact Laboratory data: I have independently reviewed the following labs: Results from last 7 days Lab Units 12/07/23 0450 12/06/23 0435 12/05/23 0545 WBC X10E9/L 2.7* 3.0* 3.9* HEMOGLOBIN g/dL 7.8* 7.8* 7.6* HEMATOCRIT % 22.3* 23.0* 22.2* PLATELETS X10E9/L 150 172 195 Results from last 7 days Lab Units 12/07/23 0450 12/06/23 2110 12/06/23 0435 12/05/23 1320 12/05/23 0545 POTASSIUM mmol/L 3.3* -- 3.5 3.6 3.6 CHLORIDE mmol/L 102 -- 102 -- 105 CO2 mmol/L 28 -- 26 -- 26 BUN mg/dL 27* -- 21 -- 19 CREATININE mg/dL 2.07* -- 2.34* -- 2.61* EGFR (CKD-EPI)NON-RACE DEPENDENT ml/min/1.73sq.m 28* -- 24* -- 21* CALCIUM mg/dL 8.8 -- 9.0 -- 9.4 MAGNESIUM mg/dL 2.0 2.3 1.5* 1.8 1.5* Results from last 7 days Lab Units 12/07/23 0450 12/06/23 0435 12/05/23 0545 ALK PHOS U/L 56 55 58 ALT U/L 13 9 9 AST U/L 22 16 15 Lab Results Component Value Date CRP 2.6 (H) 11/26/2023 Lab Results Component Value Date SEDRATE 30 11/26/2023 Cultures: Microbiology Results Procedure Component Value Units Date/Time Resp Pathogens Panel/SARS CoV-2 [[id number]] Collected: 12/05/23 1158 Specimen: Nasopharynx Updated: 12/05/23 1635 Specimen Source NASO PHARYNX Adenovirus Detection by PCR Not Detected Coronavirus 229e Not Detected Coronavirus hku1 Not Detected Coronavirus nl63 Not Detected Coronavirus oc43 Not Detected Human metapneumovirus Not Detected Rhinovirus/enterovirus Not Detected Influenza A Not Detected Influenza B Not Detected Parainfluenza 1 Not Detected Parainfluenza 2 Not Detected Parainfluenza 3 Not Detected Parainfluenza 4 Not Detected Respiratory syncytial virus Not Detected Bordetella parapertussis Not Detected Bordetella pertussis Not Detected Chlamydophila pneumophilia Not Detected Mycoplasma pneumoniae Not Detected SARS COV 2 Not Detected Blood culture #2 [[id number]] Collected: 12/05/23 1040 Specimen: Blood Updated: 12/06/23 1508 Culture NO GROWTH 1 DAY Blood culture #1 [[id number]] Collected: 12/05/23 1031 Specimen: Blood Updated: 12/06/23 1507 Culture NO GROWTH 1 DAY Urine culture [[id number]] Collected: 12/02/23 2305 Specimen: Urine, Clean Catch Midstream Updated: 12/04/23 0709 Culture NO GROWTH AT <1000 CFU/mL Blood culture [[id number]] Collected: 12/02/23 2231 Specimen: Blood, Line Draw Updated: 12/07/23 0815 Specimen Notes SUBOPTIMAL VOLUME OF BLOOD COLLECTED, RESULTS MAY BE AFFECTED. Culture NO GROWTH 4 DAYS Blood culture [[id number]] Collected: 12/02/23 2213 Specimen: Blood, Line Draw Updated: 12/07/23 0815 Specimen Notes SUBOPTIMAL VOLUME OF BLOOD COLLECTED, RESULTS MAY BE AFFECTED. Culture NO GROWTH 4 DAYS Imaging Studies: X-ray chest 1 view Result Date: 12/05/2023 Clinical history: Fever Views: 1 Comparison: None Findings/Impression: 1. Heart size stable. No focal infiltrate or volume loss. No pneumothorax. 2. Scoliosis. 3. No pneumothorax nor large effusion. 4. In summary findings most consistent with mild vascular congestion.. Finalized by Brice Sanders MD on 12/05/2023 12:16 PM Medications: apixaban, 5 mg, oral, BID ciprofloxacin HCl, 500 mg, oral, Q12H RADHA clarithromycin, 500 mg, oral, Q12H RADHA cyanocobalamin, 1,000 mcg, oral, Daily imipenem-cilastatin, 500 mg, intravenous, Q12H magnesium oxide, 400 mg, oral, BID metoprolol succinate XL, 100 mg, oral, BID potassium chloride, 20 mEq, oral, Daily sodium chloride, 3 mL, intravenous, Q12H RADHA Thank you for allowing us to participate in the care of this patient. Please call with questions. Gino Munguia APRN, [facility] [phone] This note was completed using a voice advertising representative system. Every effort was made to ensure accuracy. However, inadvertent computerized advertising representative errors may be present. Gino Munguia APRN-[facility] 12/07/23 1113 I, Carlene Noguera MD, personally performed [id number] diagnostic evaluation on this patient I reviewed and performed all the ross component of the patient visit I reviewed CEILNA history, exam and MDM - Carlene Noguera MD 12/07/23 12:53 PM * Nikki Rand RPH - 12/07/2023 9:28 AM EDT [facility] Department of Pharmacy Pharmacist to Physician Communication The dose of ciprofloxacin for SSTI has been changed to 500 mg every 12 hours per the [facility] approved renal dosing guidelines, based on an estimated creatinine clearance is 35.1 mL/min (A) (by C-G formula based on SCr of 2.07 mg/dL (H)). Thank you, Nikki Rand RPH * Shereen Smallwood PA-C - 12/07/2023 8:13 AM EDT Images from the original note were not included. [facility] Plastic & Reconstructive Surgery [facility] [address] [place] [address] Office Jhon Rosado MD, PhD Marisela Cuevas, FLUOROSCOPE OPERATOR-GARMENT STEAMER Shereen Smallwood PA-C Plastic Surgery Inpatient Progress Note Subjective: Pt doing well however expresses her desire to go home. She has not heard anything from [facility] in regards to consultation for her M. Abscessus infection. She specifically denies any areas of pain, erythema. She does state that she feels prickly this morning. Tygacil is currently running Objective: Pt is sitting up in bed. Pain appears controlled at present. Vitals: 12/07/23 0742 BP: 129/79 Pulse: 80 Resp: 25 Temp: 36.9 C (98.4 F) SpO2: 98% Fever: 102.7 at 0008 General: No acute distress, well appearing, nontoxic in appearance HEENT: Normocephalic, atraumatic, CN 2-12 grossly intact, V1-V3 grossly intact, EOMI Chest: Regular rate and rhythm Breasts: right breast incision is healed. Left breast incision is near healed. There is no erythema, no calor, no concerns for infection at present. Extremities: Pt with fine rash of chest, arms, thighs. Laboratory: Lab Results Component Value Date WBC 2.7 (L) 12/07/2023 HGB 7.8 (L) 12/07/2023 HCT 22.3 (L) 12/07/2023 MCV 88 12/07/2023 PLT 150 12/07/2023 Lab Results Component Value Date GLU 99 12/07/2023 CALCIUM 8.8 12/07/2023 K 3.3 (L) 12/07/2023 CO2 28 12/07/2023 BUN 27 (H) 12/07/2023 CREATININE 2.07 (H) 12/07/2023 Microbiology Results Procedure Component Value Units Date/Time Resp Pathogens Panel/SARS CoV-2 [[id number]] Collected: 12/05/23 1158 Specimen: Nasopharynx Updated: 12/05/23 1635 Specimen Source NASO PHARYNX Adenovirus Detection by PCR Not Detected Coronavirus 229e Not Detected Coronavirus hku1 Not Detected Coronavirus nl63 Not Detected Coronavirus oc43 Not Detected Human metapneumovirus Not Detected Rhinovirus/enterovirus Not Detected Influenza A Not Detected Influenza B Not Detected Parainfluenza 1 Not Detected Parainfluenza 2 Not Detected Parainfluenza 3 Not Detected Parainfluenza 4 Not Detected Respiratory syncytial virus Not Detected Bordetella parapertussis Not Detected Bordetella pertussis Not Detected Chlamydophila pneumophilia Not Detected Mycoplasma pneumoniae Not Detected SARS COV 2 Not Detected Blood culture #2 [[id number]] Collected: 12/05/23 1040 Specimen: Blood Updated: 12/07/23 1508 Culture NO GROWTH 2 DAYS Blood culture #1 [[id number]] Collected: 12/05/23 1031 Specimen: Blood Updated: 12/07/23 1507 Culture NO GROWTH 2 DAYS Urine culture [[id number]] Collected: 12/02/23 2305 Specimen: Urine, Clean Catch Midstream Updated: 12/04/23 0709 Culture NO GROWTH AT <1000 CFU/mL Blood culture [[id number]] Collected: 12/02/23 2231 Specimen: Blood, Line Draw Updated: 12/08/23 0817 Specimen Notes SUBOPTIMAL VOLUME OF BLOOD COLLECTED, RESULTS MAY BE AFFECTED. Culture NO GROWTH 5 DAYS Blood culture [[id number]] Collected: 12/02/23 2213 Specimen: Blood, Line Draw Updated: 12/08/23 0813 Specimen Notes SUBOPTIMAL VOLUME OF BLOOD COLLECTED, RESULTS MAY BE AFFECTED. Culture NO GROWTH 5 DAYS Assessment: Ike Jones is a 53 y.o. female s/p I&D left breast with removal of TE. Plan: - Pain well controlled with Tylenol, oxycodone, Toradol, - Tolerating a regular diet (no caffeine, chocolate or nicotine) - Optimize nutrition with protein supplementation at every meal - Continue subcutaneous Lovenox and SCDs for DVT prophylaxis - Continue IV cefazolin (x3 doses) for surgical prophylaxis - Aspirin (325 mg) daily for 30 days - Tygacil stopped secondary to rash -Dispo planning arrangement for follow up for M. Abscessus - Colace/Senna/MiraLAX for bowel regimen All questions were answered to her satisfaction. She was counseled regarding my impressions, instructions for management and the importance of compliance with treatment. INÉS PAYNE MD, PhD [facility] Plastic & Reconstructive Surgery ' Shereen Smallwood PA-C 12/08/23 1124 * Elayne Chow MD - 12/06/2023 10:03 AM EDT Images from the original note were not included. [facility] PHYSICIANS [facility] INTERNAL MEDICINE [facility] [place] [address] ONCOLOGY/STROKE [address] [place] [id number] Hospital Medicine Progress Note Patient: Ike Jones Date of : 1970 Room: [facility] PCP: AMEENA DIAZ Admission date: 12/02/2023 9:55 PM Encounter date: 12/06/23 Hospital Day: 5 SUBJECTIVE Chief complaints: Chief Complaint Patient presents with Post-op Problem Patient states she had an infected L breast implant and was started on abx on Nov 25. Patient states that on Thursday the implant was removed and Wednesday 11/29 she was discharged from the hospital. Patient states she has been doing her own abx infusions at home through her port since then and saw Dr. Rosado today. Patient states she started having a low grade fever and chills and was sent by infectious disease [facility] Interval History: Status: improved. No overnight events or new complaints. Low grade fever max temperature 100.8 CXR negative for acute process, showed mild vascular congestion Review of Systems Constitutional: Positive for fever. Negative for activity change, appetite change, chills, fatigue and unexpected weight change. HENT: Negative for trouble swallowing. Respiratory: Negative for cough, shortness of breath and wheezing. Negative for sputum production. Cardiovascular: Negative for chest pain, palpitations and leg swelling. Gastrointestinal: Negative for abdominal pain, blood in stool, constipation, diarrhea, nausea and vomiting. Negative for melena. Genitourinary: Negative for difficulty urinating. Skin: Positive for wound. Negative for color change and rash. Neurological: Negative for dizziness, seizures, speech difficulty, weakness and headaches. Psychiatric/Behavioral: Negative for sleep disturbance. OBJECTIVE BP 129/80 Pulse 80 Temp 36.7 C (98 F) (Oral) Resp 16 Ht 180.3 cm (5' 11 ) Wt 98.5 kg (217lb 2.5 oz) SpO2 98% BMI 30.29 kg/m Temp: [36.7 C (98 F)-38.2 C (100.8 F)] 36.7 C (98 F) Pulse: [77-96] 80 Resp: [16-24] 16 BP: (124-144)/(78-99) 129/80 SpO2: [92 %-98 %] 98 % O2 Device: None (Room air) Intake/Output Summary (Last 24 hours) at 12/06/2023 1003 Last data filed at 12/06/2023 0922 Gross per 24 hour Intake 561.35 ml Output 600 ml Net -38.65 ml Physical Exam Vitals reviewed. Constitutional: General: She is not in acute distress. Appearance: Normal appearance. She is well-developed. HENT: Head: Normocephalic and atraumatic. Right Ear: External ear normal. Left Ear: External ear normal. Nose: Nose normal. Right Sinus: No maxillary sinus tenderness or frontal sinus tenderness. Left Sinus: No maxillary sinus tenderness or frontal sinus tenderness. Mouth/Throat: Lips: [place]. Mouth: Mucous membranes are moist. Pharynx: Oropharynx is clear. Eyes: General: No scleral icterus. Extraocular Movements: Extraocular movements intact. Pupils: Pupils are equal, round, and reactive to light. Neck: Vascular: No carotid bruit or JVD. Cardiovascular: Rate and Rhythm: Normal rate and regular rhythm. Pulses: Radial pulses are 2+ on the right side and 2+ on the left side. Heart sounds: Normal heart sounds, S1 normal and S2 normal. No murmur heard. No friction rub. No gallop. Pulmonary: Effort: Pulmonary effort is normal. Breath sounds: Normal breath sounds. No decreased breath sounds, wheezing, rhonchi or rales. Abdominal: General: Bowel sounds are normal. Palpations: Abdomen is soft. Tenderness: There is no abdominal tenderness. Musculoskeletal: Right lower leg: No edema. Left lower leg: No edema. Skin: General: Skin is warm and dry. Capillary Refill: Capillary refill takes less than 2 seconds. Findings: Erythema and wound present. No rash. Comments: Surgical site examined, appears clean and dry. Mild erythema noted Neurological: General: No focal deficit present. Mental Status: She is alert and oriented to person, place, and time. Psychiatric: Attention and Perception: Attention normal. Mood and Affect: Mood and affect normal. Behavior: Behavior normal. Behavior is cooperative. Medications Scheduled: apixaban, 5 mg, oral, BID ciprofloxacin HCl, 500 mg, oral, Q24H RADHA clarithromycin, 500 mg, oral, Q12H RADHA cyanocobalamin, 1,000 mcg, oral, Daily imipenem-cilastatin, 500 mg, intravenous, Q12H iron sucrose, 200 mg, intravenous, Daily magnesium oxide, 400 mg, oral, BID magnesium sulfate, 4,000 mg, intravenous, Once metoprolol succinate XL, 100 mg, oral, BID potassium chloride, 20 mEq, oral, Daily sodium chloride, 3 mL, intravenous, Q12H RADHA [COMPLETED] tigecycline (TYGACIL) IV, 100 mg, intravenous, Once FOLLOWED BY tigecycline (TYGACIL) IV, 50 mg, intravenous, Q12H Infusions: lactated ringer's, 100 mL/hr, Last Rate: 100 mL/hr (12/05/23 0641) As Needed: acetaminophen albuterol jdrbxgq-[id number]-mxviprzn calcium gluconate calcium gluconate calcium gluconate cyclobenzaprine dextrose dextrose 50 % in water (D50W) hydrALAZINE labetaloL magnesium sulfate magnesium sulfate ondansetron oxyCODONE potassium chloride OR potassium chloride sennosides-docusate sodium sodium phosphate IV OR sodium phosphate IV - central line OR sod phos di, mono-K phos mono sodium chloride traZODone Allergies: Meperidine, Daptomycin, and Adhesive Code Status: Full Code Labs Recent Results (from the past 24 hour(s)) Blood culture #1 Collection Time: 12/05/23 10:31 AM Specimen: Blood Result Value Ref Range Culture NO GROWTH <24 HRS Blood culture #2 Collection Time: 12/05/23 10:40 AM Specimen: Blood Result Value Ref Range Culture NO GROWTH <24 HRS Resp Pathogens Panel/SARS CoV-2 Collection Time: 12/05/23 11:58 AM Result Value Ref Range Specimen Source NASO PHARYNX Adenovirus Detection by PCR Not Detected Not Detected^Not Detected Coronavirus 229e Not Detected Not Detected^Not Detected Coronavirus hku1 Not Detected Not Detected^Not Detected Coronavirus nl63 Not Detected Not Detected^Not Detected Coronavirus oc43 Not Detected Not Detected^Not Detected Human metapneumovirus Not Detected Not Detected^Not Detected Rhinovirus/enterovirus Not Detected Not Detected^Not Detected Influenza A Not Detected Not Detected^Not Detected Influenza B Not Detected Not Detected^Not Detected Parainfluenza 1 Not Detected Not Detected^Not Detected Parainfluenza 2 Not Detected Not Detected^Not Detected Parainfluenza 3 Not Detected Not Detected^Not Detected Parainfluenza 4 Not Detected Not Detected^Not Detected Respiratory syncytial virus Not Detected Not Detected^Not Detected Bordetella parapertussis Not Detected Not Detected^Not Detected Bordetella pertussis Not Detected Not Detected^Not Detected Chlamydophila pneumophilia Not Detected Not Detected^Not Detected Mycoplasma pneumoniae Not Detected Not Detected^Not Detected SARS COV 2 Not Detected Not Detected^Not Detected Potassium Collection Time: 12/05/23 1:20 PM Result Value Ref Range Potassium, Bld 3.6 3.5 - 5.0 mmol/L Magnesium Collection Time: 12/05/23 1:20 PM Result Value Ref Range Magnesium 1.8 1.8 - 2.6 mg/dL Comprehensive metabolic panel Collection Time: 12/06/23 4:35 AM Result Value Ref Range Sodium 137 134 - 146 mmol/L Potassium, Bld 3.5 3.5 - 5.0 mmol/L Chloride 102 98 - 109 mmol/L CO2 26 22 - 32 mmol/L Anion gap 9 5 - 15 mmol/L BUN 21 5 - 23 mg/dL Creatinine 2.34 (H) 0.40 - 1.00 mg/dL Glucose 100 (H) 65 - 99 mg/dL Calcium 9.0 8.5 - 10.5 mg/dL Total Protein 5.8 (L) 6.0 - 8.0 g/dL Albumin 3.3 3.2 - 5.3 g/dL Alkaline Phosphatase 55 39 - 130 U/L AST 16 0 - 41 U/L ALT 9 0 - 31 U/L Total bilirubin 0.5 0.3 - 1.2 mg/dL eGFR (CKD-EPI)non-race dependent 24 (L) >59 ml/min/1.73sq.m Magnesium Collection Time: 12/06/23 4:35 AM Result Value Ref Range Magnesium 1.5 (L) 1.8 - 2.6 mg/dL CBC auto differential Collection Time: 12/06/23 4:35 AM Result Value Ref Range White Blood Cells 3.0 (L) 4.0 - 11.0 X10E9/L RBC count 2.58 (L) 3.80 - 5.20 X10E12/L Hemoglobin 7.8 (L) 11.7 - 15.5 g/dL Hematocrit 23.0 (L) 35 - 47 % MCV 89 80 - 100 fL MCH 30.3 27 - 34 pg MCHC 34.0 32 - 36 g/dL RDW 14.1 11.5 - 15.0 % Platelets 172 150 - 450 X10E9/L MPV 6.7 (L) 7 - 12 fL % neutrophils 64.0 % % lymphocytes 13.8 % % monocytes 14.0 % % eosinophils 7.7 % % Basophils 0.5 % Neutrophils Absolute (A) 1.9 1.5 - 6.6 X10E9/L Lymphocytes Absolute 0.4 (L) 1.0 - 3.5 X10E9/L Monocytes Absolute 0.4 0 - 0.9 X10E9/L Eosinophils Absolute 0.2 0.0 - 0.4 X10E9/L Basophils Absolute 0.0 0.0 - 0.2 X10E9/L Phosphorus Collection Time: 12/06/23 4:35 AM Result Value Ref Range Phosphorus 5.0 (H) 2.4 - 4.9 mg/dL Radiology X-ray chest 1 view Result Date: 12/05/2023 Clinical history: Fever Views: 1 Comparison: None Findings/Impression: 1. Heart size stable. No focal infiltrate or volume loss. No pneumothorax. 2. Scoliosis. 3. No pneumothorax nor large effusion. 4. In summary findings most consistent with mild vascular congestion.. Finalized by Brice Sanders MD on 12/05/2023 12:16 PM HOSPITAL PROBLEM LIST Principal Problem: MIRNA (acute kidney injury) ([facility]) Active Problems: Hypertension Malignant neoplasm of lower-inner quadrant of right breast of female, estrogen receptor positive (CMS-HCC) Cellulitis of left breast Infection of deep incisional surgical site after procedure ASSESSMENT & PLAN Acute kidney injury, multifactorial in the setting of decreased p.o. intake, infection, and nephrotoxic pharmacological agents -nephrology following -renal ultrasound: Negative -continue IV fluids Post-operative infection of left breast implant Culture growing mycobacterium abscessus Fevers -infectious disease and plastic surgery following -started on tigecycline & Primaxin; continue Cipro and Biaxin - per ID -follow cultures Right breast cancer, s/p bilateral mastectomy Followed by Dr. Hope, will consult if any needs while inpatient History of DVT Continue eliquis HTN Blood pressure is elevated this morning, Toprol increased Hold lisinopril, lasix and spironolactone until MIRNA improves -continuous telemetry Normocytic normochromic anemia Iron-deficiency anemia -Borderline vitamin B12 give 1 x dose IM then oral daily supplements -HGB stable at 7.8, iron saturation 4% -IV Venofer Hypokalemia Hypomagnesemia -replace and monitor electrolytes per protocol and scale Liliane Valle APRN-GARMENT STEAMER 12/06/23 1436 Physician Attestation I personally performed a face to face diagnostic evaluation on this patient on 12/06/23 I have repeated the ross portions of the history, review of systems,physical exam, reviewed relevantlaboratory findings and imaging reports/films. I agree with the CELINA findings and the plan . Elayne Chow MD * Epifanio Henry MD - 12/06/2023 9:45 AM EDT Images from the original note were not included. Nephrology Daily Progress Note INTERVAL HISTORY: Denies any nausea or vomiting. Reports improved p.o. intake. She did have breakfast this morning. Denies any shortness breath. Denies any chest pain. Denies any edema. Denies any dizziness. She continues to have intermittent fevers. VITAL SIGNS TREND: Vitals: 12/05/23 2310 12/06/23 0427 12/06/23 0602 12/06/23 0855 BP: 132/82 144/79 129/80 Pulse: 77 89 80 Resp: 22 21 16 Temp: 37.4 C (99.3 F) (!) 38.2 C (100.8 F) 37.4 C (99.4 F) 36.7 C (98 F) TempSrc: Oral Oral Oral Oral SpO2: 98% 98% 98% Weight: Height: INTAKE/OUTPUT: Intake/Output Summary (Last 24 hours) at 12/06/2023 0945 Last data filed at 12/06/2023 0922 Gross per 24 hour Intake 561.35 ml Output 600 ml Net -38.65 ml I/O this shift: In: 561.4 [P.O.:300; IV Piggyback:261.4] Out: - WEIGHT: Last 3 Weight Readings 12/03/23 0006 12/04/23 0544 12/05/23 0553 Weight: 97.3 kg (214 lb 8.1 oz) 96.9 kg (213 lb 10 oz) 98.5 kg (217 lb 2.5 oz) PHYSICAL EXAM: Blood pressure 129/80, pulse 80, temperature 36.7 C (98 F), temperature source Oral, resp. rate 16,height 180.3 cm (5' 11 ), weight 98.5 kg (217 lb 2.5 oz), SpO2 98%. Temp: [36.7 C (98 F)-38.2 C (100.8 F)] 36.7 C (98 F) Pulse: [77-96] 80 Resp: [16-24] 16 BP: (124-144)/(78-99) 129/80 SpO2: [92 %-98 %] 98 % O2 Device: None (Room air) General appearance: alert in no apparent distress. HEENT: no JVD, no lymphadenopathy. Heart exam: normal S1-S2 Lungs: clear to auscultation bilaterally Abdomen: soft, no tenderness, no guarding, positive bowel sounds Extremities: no edema Vascular: adequate pulses and no carotid bruits. Musculoskeletal: no joint tenderness or swelling. LABORATORY EVALUATION: Results from last 7 days Lab Units 12/06/23 0435 12/05/23 1320 12/05/23 0545 12/04/23 1656 12/04/23 0305 12/03/23 1220 12/03/23 0350 12/02/23 2213 12/02/23 2213 SODIUM mmol/L 137 -- 139 -- 138 -- 137 -- 133* POTASSIUM mmol/L 3.5 3.6 3.6 3.7 3.4* 3.6 3.1* -- 3.2* CHLORIDE mmol/L 102 -- 105 -- 107 -- 104 -- 99 CO2 mmol/L 26 -- 26 -- 25 -- 25 -- 25 ANION GAP mmol/L 9 -- 8 -- 6 -- 8 -- 9 BUN mg/dL -- -- 24* -- 25* -- 27* CREATININE mg/dL 2.34* -- 2.61* -- 2.81* -- 2.49* -- 2.52* CALCIUM mg/dL 9.0 -- 9.4 -- 9.2 -- 9.2 -- 9.8 MAGNESIUM mg/dL 1.5* 1.8 1.5* -- 1.9 2.2 1.5* < > -- PHOSPHORUS mg/dL 5.0* -- 4.1 -- 3.9 -- -- -- -- CALCIUM, IONIZED mg/dL -- -- -- -- 5.0 -- -- -- -- < > = values in this interval not displayed. Results from last 7 days Lab Units 12/06/23 0435 12/05/23 0545 12/04/23 0305 12/03/23 1737 12/03/23 1628 12/03/23 0350 12/02/23 2305 12/02/23 2213 TOTAL PROTEIN g/dL 5.8* 5.6* 5.4* -- 5.4* 5.5* -- 6.4 ALBUMIN g/dL 3.3 3.2 3.2 -- 3.1* 3.3 -- 3.8 AST U/L 16 15 15 -- -- 19 -- 24 ALT U/L 9 9 9 -- -- 10 -- 12 TOTAL BILIRUBIN mg/dL 0.5 0.4 0.5 -- -- 0.6 -- 0.6 BILIRUBIN, URINE -- -- -- Negative -- -- < > -- ALK PHOS U/L 55 58 56 -- -- 60 -- 69 < > = values in this interval not displayed. Results from last 7 days Lab Units 12/06/2343412/05/23 0545 12/04/23 0305 12/03/23 0350 12/02/23 2213 WBC X10E9/L 3.0* 3.9* 4.3 5.8 7.8 HEMOGLOBIN g/dL 7.8* 7.6* 7.3* 8.0* 9.1* HEMATOCRIT % 23.0* 22.2* 21.2* 22.9* 26.0* PLATELETS X10E9/L 172 195 201 233 279 Lab Results Component Value Date IRON <10 (L) 12/04/2023 TIBC 272 12/04/2023 FERRITIN 8 (L) 01/31/2022 IRONSAT <4 (L) 12/04/2023 Results from last 7 days Lab Units 12/06/235 12/05/23 0545 12/04/23 0305 12/03/23 0350 12/02/23 2213 GLUCOSE mg/dL 100* 95 91 103* 106* Results from last 7 days Lab Units 12/03/23 1628 CK TOTAL U/L 52 CURRENT MEDICATIONS: apixaban, 5 mg, oral, BID ciprofloxacin HCl, 500 mg, oral, Q24H RADHA clarithromycin, 500 mg, oral, Q12H RADHA cyanocobalamin, 1,000 mcg, oral, Daily imipenem-cilastatin, 500 mg, intravenous, Q12H iron sucrose, 200 mg, intravenous, Daily magnesium oxide, 400 mg, oral, BID metoprolol succinate XL, 100 mg, oral, BID potassium chloride, 20 mEq, oral, Daily sodium chloride, 3 mL, intravenous, Q12H RADHA [COMPLETED] tigecycline (TYGACIL) IV, 100 mg, intravenous, Once FOLLOWED BY tigecycline (TYGACIL) IV, 50 mg, intravenous, Q12H PROBLEM LIST: Acute kidney injury which could related to Acute Tubular Necrosis secondary to sepsis versus vancomycin nephrotoxicity versus volume depletion secondary to poor p.o. intake in the setting of ongoing intake of chlorthalidone, Lasix, lisinopril and spironolactone. From December of 2023 Renal ultrasound revealed right kidney of 11.4 cm left of 14.7 cm with no evidence of hydronephrosis, CPK was 52, serum protein electrophoresis was negative monoclonal bands, JUSTIN anti MPO anti PR3 and anti-GBM were negative, C3 was 158 and C4 was 38, urine dipstick was negative for blood or protein, fractional excretion of sodium was 1.8% and random urine protein to creatinine ratio was 0.3 grams/gram. Left breast cellulitis with infected seroma status post removal of left breast tortilla maker on November 27, 2023 Hypertension Edema Depression/anxiety DVT Right-sided breast cancer status post bilateral mastectomy with a lymph node dissection with subsequent bilateral breast reconstruction on October 28, 2023 MediPort placement Bilateral knee arthroscopy Tonsillectomy and adenoidectomy IMPRESSION: 1. Acute kidney injury which is likely related to Acute Tubular Necrosis in the setting of sepsis versus volume depletion secondary to decreased p.o. intake in the setting of ongoing intake of chlorthalidone, Lasix, lisinopril as well as spironolactone as well as possibly vancomycin nephrotoxicity.Creatinine is up overnight. Urine output is adequate 2. Hypertension: With elevated blood pressure yesterday for which Toprol XL was increased. Blood pressure seems to have improved this morning. On IV hydralazine and IV labetalol p.r.n. for elevated blood pressure 3. Left breast and chest wall cellulitis: On Cipro and clarithromycin per Infectious Disease 4. Hypokalemia: On lactated Ringer's. Continue to follow potassium and replace per sliding scale asneeded 5. Hypomagnesemia: Continue to follow magnesium and replace per sliding scale as needed 6. Intermittent fevers: Management per Infectious Disease. PLAN: 1. Continue IV fluids for now. 2. Reassess blood pressure in a.m. 3. Continue to follow electrolytes and replace per sliding scale as needed 4. Continue magnesium oxide. 5. Continue potassium chloride 6. Reassess need for IV fluids in a.m. Will need Lasix p.r.n. for edema post discharge as well as scheduled potassium and magnesium given her chronic hypokalemia and hypomagnesemia which is likely related to secondary to chemotherapy. renal tubular defect Epifanio Henry M.D. For questions please call: Answering Service at [phone] Or Office at [phone] This note was created with the assistance of a speech-recognition program. Although the intention is to generate a document that actually reflects the content of the visit, no guarantees can be provided that every mistake has been identified and corrected by editing. * Carlene Noguera MD - 12/05/2023 7:10 PM EDT [facility] - Daily Progress Note Ike Jones Admission date/time 12/02/2023 9:55 PM Today's Date and Time: 12/05/2023, 7:10 PM Impression : Postop infection of left breast tissue tortilla maker-culture growing acid-fast bacilli Acute kidney injury History of breast cancer S/p bilateral mastectomies S/p bilateral breast reconstruction October 28, 2023 History of DVT-on Eliquis Presence of Port-A-Cath Recommendations: Breast surgical cx Mycobacterium abscesses Repeat blood cultures Start imipenem and tigecycline Continue Cipro and clarithromycin Follow-up CBC renal function Follow-up temperature Supportive care FOLLOW UP/chief complaints Breast surgical site infection Interval History: Intermittent fever No cough shortness of breath, no vomiting, no new rash On antibiotic ROS: Negative except as above Social History: Social History Socioeconomic History Marital status: Spouse name: Not on file Number of children: Not on file Years of education: Not on file Highest education level: Some college, no degree Occupational History Not on file Tobacco Use Smoking status: Never Smokeless tobacco: Never Vaping Use Vaping status: Never Used Substance and Sexual Activity Alcohol use: Yes Comment: Socially Drug use: Never Sexual activity: Not on file Other Topics Concern Not on file Social History Narrative Not on file Social Determinants of Health Financial Resource Strain: Low Risk (02/27/2022) Overall Financial Resource Strain (CARDIA) Difficulty of Paying Living Expenses: Not hard at all Food Insecurity: No Food Insecurity (12/03/2023) Hunger Screening Food Insecurity - Worry: Never True Food Insecurity - Inability: Never True Transportation Needs: No Transportation Needs (12/03/2023) PRAPARE - Transportation Lack of Transportation (Medical): No Lack of Transportation (Non-Medical): No Physical Activity: Sufficiently Active (02/27/2022) Exercise Vital Sign Days of Exercise per Week: 3 days Minutes of Exercise per Session: 60 min Stress: Stress Concern Present (02/27/2022) [place] Citizen [place] [employer] Occup[employer] - Occupational Stress Questionnaire Feeling of Stress : To some extent Social Connections: Socially Integrated (02/27/2022) Social Connection and Isolation Panel [NHANES] Frequency of Communication with Friends and Family: Twice a week Frequency of Social Gatherings with Friends and Family: Three times a week Attends Gnosticist Services: More than 4 times per year Active Member of Clubs or Organizations: Yes Attends Club or Organization Meetings: 1 to 4 times per year Marital Status: Interpersonal Safety: Not At Risk (12/03/2023) Humiliation, Afraid, Rape, and Kick questionnaire Fear of Current or Ex-Partner: No Emotionally Abused: No Physically Abused: No Sexually Abused: No Housing Instability: Low Risk (12/03/2023) Housing Instability Housing Instability: No Family History: Family History Adopted: Yes Physical Examination : Vitals: 12/05/23 0857 12/05/23 1015 12/05/23 1155 12/05/23 1557 BP: (!) 150/91 142/84 (!) 124/99 144/78 Pulse: 85 81 84 96 Resp: 18 Temp: 37 C (98.6 F) 37.5 C (99.5 F) 37.6 C (99.6 F) TempSrc: Oral Oral Oral SpO2: 96% 97% 92% Weight: Height: Temperature Range: Temp: 37.6 C (99.6 F) Temp Av.6 C (99.6 F) Min: 37 C (98.6 F) Max: 39.2 C (102.5 F) With nurse General Appearance: Awake, alert, and in no apparent distress Breast surgical site with a erythema Pulmonary/Chest: No accessory muscle use Abdomen: soft, Nondistended Extremities: No cyanosis, clubbing, edema, or effusions. Skin:no unusual rash Laboratory data: I have independently reviewed the following labs: Results from last 7 days Lab Units 12/05/23 0545 12/04/23 0305 12/03/23 0350 WBC X10E9/L 3.9* 4.3 5.8 HEMOGLOBIN g/dL 7.6* 7.3* 8.0* HEMATOCRIT % 22.2* 21.2* 22.9* PLATELETS X10E9/L 195 201 233 Results from last 7 days Lab Units 12/05/23 1320 12/05/23 0545 12/04/23 1656 12/04/23 0305 12/03/23 1220 12/03/23 0350 POTASSIUM mmol/L 3.6 3.6 3.7 3.4* < > 3.1* CHLORIDE mmol/L -- 105 -- 107 -- 104 CO2 mmol/L -- 26 -- 25 -- 25 BUN mg/dL -- 19 -- 24* -- 25* CREATININE mg/dL -- 2.61* -- 2.81* -- 2.49* EGFR (CKD-EPI)NON-RACE DEPENDENT ml/min/1.73sq.m -- 21* -- 19* -- 23* CALCIUM mg/dL -- 9.4 -- 9.2 -- 9.2 MAGNESIUM mg/dL 1.8 1.5* -- 1.9 < > 1.5* < > = values in this interval not displayed. Results from last 7 days Lab Units 12/05/23 0545 12/04/23 0305 12/03/23 0350 ALK PHOS U/L 58 56 60 ALT U/L 9 9 10 AST U/L 15 15 19 Lab Results Component Value Date CRP 2.6 (H) 11/26/2023 Lab Results Component Value Date SEDRATE 30 11/26/2023 Cultures: Microbiology Results Procedure Component Value Units Date/Time Resp Pathogens Panel/SARS CoV-2 [[id number]] Collected: 12/05/23 1158 Specimen: Nasopharynx Updated: 12/05/23 1635 Specimen Source NASO PHARYNX Adenovirus Detection by PCR Not Detected Coronavirus 229e Not Detected Coronavirus hku1 Not Detected Coronavirus nl63 Not Detected Coronavirus oc43 Not Detected Human metapneumovirus Not Detected Rhinovirus/enterovirus Not Detected Influenza A Not Detected Influenza B Not Detected Parainfluenza 1 Not Detected Parainfluenza 2 Not Detected Parainfluenza 3 Not Detected Parainfluenza 4 Not Detected Respiratory syncytial virus Not Detected Bordetella parapertussis Not Detected Bordetella pertussis Not Detected Chlamydophila pneumophilia Not Detected Mycoplasma pneumoniae Not Detected SARS COV 2 Not Detected Blood culture #2 [[id number]] Resulted: 12/05/23 1041 Specimen: Blood, Peripheral Draw Updated: 12/05/23 1041 Blood culture #1 [[id number]] Resulted: 12/05/23 1032 Specimen: Blood, Peripheral Draw Updated: 12/05/23 1032 Urine culture [[id number]] Collected: 12/02/23 2305 Specimen: Urine, Clean Catch Midstream Updated: 12/04/23 0709 Culture NO GROWTH AT <1000 CFU/mL Blood culture [[id number]] Collected: 12/02/23 2231 Specimen: Blood, Line Draw Updated: 12/05/23 0815 Specimen Notes SUBOPTIMAL VOLUME OF BLOOD COLLECTED, RESULTS MAY BE AFFECTED. Culture NO GROWTH 2 DAYS Blood culture [[id number]] Collected: 12/02/23 2213 Specimen: Blood, Line Draw Updated: 12/05/23814 Specimen Notes SUBOPTIMAL VOLUME OF BLOOD COLLECTED, RESULTS MAY BE AFFECTED. Culture NO GROWTH 2 DAYS Imaging Studies: X-ray chest 1 view Result Date: 12/05/2023 Clinical history: Fever Views: 1 Comparison: None Findings/Impression: 1. Heart size stable. No focal infiltrate or volume loss. No pneumothorax. 2. Scoliosis. 3. No pneumothorax nor large effusion. 4. In summary findings most consistent with mild vascular congestion.. Finalized by Brice Sanders MD on 12/05/2023 12:16 PM Ultrasound retroperitoneal complete Result Date: 12/04/2023 ULTRASOUND RETROPERITONEUM INDICATION: Acute renal injury. COMPARISON: None available. FINDINGS: Ultrasound evaluation of the kidneys and bladder was performed. Right kidney: 11.4 cm in maximal length. No collecting system dilatation, calculi, or contour deforming mass lesion. Left kidney: 14.7 cm in maximal length. No collecting system dilatation, calculi, or contour deforming mass lesion. Bladder: Unremarkable fluid filled bladder. Ureteral jets not seen. IMPRESSION: 1. No acute abnormality. No stone or collecting system dilatation. Finalized by Jesus Jack MD on 12/04/2023 9:23 AM Medications: apixaban, 5 mg, oral, BID ciprofloxacin HCl, 500 mg, oral, Q24H RADHA clarithromycin, 500 mg, oral, Q12H RADHA [START ON 12/06/2023] cyanocobalamin, 1,000 mcg, oral, Daily imipenem-cilastatin, 500 mg, intravenous, Q12H iron sucrose, 200 mg, intravenous, Daily magnesium oxide, 400 mg, oral, BID metoprolol succinate XL, 100 mg, oral, BID [START ON 12/06/2023] potassium chloride, 20 mEq, oral, Daily sodium chloride, 3 mL, intravenous, Q12H RADHA [COMPLETED] tigecycline (TYGACIL) IV, 100 mg, intravenous, Once FOLLOWED BY [START ON 12/06/2023] tigecycline (TYGACIL) IV, 50 mg, intravenous, Q12H Thank you for allowing us to participate in the care of this patient. Please call with questions. Carlene Noguera MD [employer] messagin This note was completed using a voice advertising representative system. Every effort was made to ensure accuracy. However, inadvertent computerized advertising representative errors may be present. * Dorothy Morales, [facility] - 12/05/2023 6:53 PM EDT Pharmacy Consult Reason for consult: Pharmacy to Dose imipenem and tigecycline History of Present illness: Ike Jones is a 53 y.o. female who has been consulted for dosing imipenem and tigecycline for mycobacterial infection. Allergies: Meperidine, Daptomycin, and Adhesive Current medication regimen: Current Facility-Administered Medications Medication Dose Route Frequency Provider Last Rate Last Admin acetaminophen (TYLENOL EXTRA STRENGTH) tablet 500 mg 500 mg oral Q6H PRN Chris Mcmullen PA-C 500 mg at 12/05/23 0558 albuterol (PROVENTIL,VENTOLIN) nebulizer solution 2.5 mg 2.5 mg nebulization Q6H PRN Chris Mcmullen PA-C apixaban (ELIQUIS) tablet 5 mg 5 mg oral BID Chris Mcmullen PA-C 5 mg at 12/05/23 0904 phoicmo-ffuxptbvavosr-cdswhgoc (EXCEDRIN MIGRAINE) 250-250-65 mg per tablet 2 tablet 2 tablet oral Q6H PRN Liliane Valle APRN-GARMENT STEAMER 2 tablet at 12/04/23 0809 calcium gluconate 3,000 mg in sodium chloride 0.9 % 100 mL IVPB 3,000 mg intravenous PRN Epifanio Henry MD calcium gluconate 4,000 mg in sodium chloride 0.9 % 250 mL IVPB 4,000 mg intravenous PRN Epifanio Henry MD calcium gluconate IVPB 2000 mg/100 mL (20 mg/mL premix) 2,000 mg intravenous PRN Epifanio Henry MD ciprofloxacin HCl (CIPRO) tablet 500 mg 500 mg oral Q24H RADHA Noguera MD 500 mg at 12/05/23 0904 clarithromycin (BIAXIN) tablet 500 mg 500 mg oral Q12H [facility] Carlene Noguera MD 500 mg at 12/05/23 0904 [START ON 12/06/2023] cyanocobalamin tablet 1,000 mcg 1,000 mcg oral Daily Liliane Valle FLUOROSCOPE OPERATOR-ESPERANZA cyclobenzaprine (FLEXERIL) tablet 10 mg 10 mg oral Nightly PRN Chris Mcmullen PA-C 10 mg at 12/04/23 2355 dextrose (GLUTOSE) 40 % gel 15 g 15 g oral PRN Chris Mcmullen PA-C dextrose 50 % in water (D50W) 50% solution 25 mL 25 mL intravenous PRN Chris Mcmullen PA-C hydrALAZINE (APRESOLINE) injection 10 mg 10 mg intravenous Q4H PRN Epifanio Henry MD 10 mg at 12/05/23 0558 imipenem-cilastatin (PRIMAXIN) 500 mg in sodium chloride 0.9 % 100 mL IVPB-MBP 500 mg intravenous Q12H Carlene Noguera MD iron sucrose (VENOFER) 200 mg in sodium chloride 0.9 % 100 mL IVPB 200 mg intravenous Daily Liliane Valle APRN-ESPERANZA Stopped at 12/05/23 1248 labetaloL (NORMODYNE,TRANDATE) injection 10 mg 10 mg intravenous Q4H PRN Epifanio Henry MD lactated ringers infusion 100 mL/hr intravenous Continuous Epifanio Henry MD 100 mL/hr at 12/05/23 0641 100 mL/hr at 12/05/23 0641 magnesium oxide (MAGOX) tablet 400 mg 400 mg oral BID Epifanio Henry MD magnesium sulfate IVPB 2000 mg/50 mL in iso-osmotic water (40 mg/mL premix) 2,000 mg intravenous PRN Chris Mcmullen PA-C Stopped at 12/05/23 0842 metoprolol succinate XL (TOPROL XL) 24 hr tablet 100 mg 100 mg oral BID Epifanio Henry MD ondansetron (PF) (ZOFRAN) injection 4 mg 4 mg intravenous Q4H PRN Chris Mcmullen PA-C 4 mg at 12/03/23 0625 oxyCODONE (ROXICODONE) immediate release tablet 5 mg 5 mg oral Q4H PRN Chris Mcmullen PA-C potassium chloride (KLOR-CON M 20) CR tablet 20-60 mEq 20-60 mEq oral PRN Epifanio Henry MD 20 mEq at 12/05/23 0904 Or potassium chloride (KAYCIEL) 20 mEq/15 mL solution 20-60 mEq 20-60 mEq oral PRN Epifanio Henry MD [START ON 12/06/2023] potassium chloride (KLOR-CON M 20) CR tablet 20 mEq 20 mEq oral Daily Epifanio Henry MD sennosides-docusate sodium (SENOKOT-S) 8.6-50 mg 1 tablet 1 tablet oral Q12H PRN Chris Mcmullen PA-C sodium phosphate 20 mmol in sodium chloride 0.9 % 250 mL IVPB 20 mmol intravenous PRN Epifanio Henry MD Or sodium phosphate 20 mmol in sodium chloride 0.9 % 100 mL IVPB 20 mmol intravenous PRN Epifanio Henry MD Or sod phos di, mono-K phos mono (K-PHOS NEUTRAL) 250 mg tablet 2 tablet 2 tablet oral PRN Epifanio Henry MD sodium chloride 0.9 % flush 3 mL 3 mL intravenous PRN Chris Mcmullen PA-C 3 mL at 12/03/23 0637 sodium chloride 0.9 % flush 3 mL 3 mL intravenous Q12H RADHA Chris Mcmullen PA-C 3 mL at 12/05/23 0900 tigecycline (TYGACIL) 100 mg in sodium chloride 0.9 % 100 mL IVPB 100 mg intravenous Once Carlene Noguera MD 220 mL/hr at 12/05/23 1836 100 mg at 12/05/23 1836 Followed by [START ON 12/06/2023] tigecycline (TYGACIL) 50 mg in sodium chloride 0.9 % 50 mL IVPB 50 mg intravenous Q12H Carlene Noguera MD traZODone (DESYREL) tablet 50 mg 50 mg oral Nightly PRN Chris Mcmullen PA-C Impression: Estimated Creatinine Clearance: 27.9 mL/min (A) (by C-G formula based on SCr of 2.61 mg/dL (H)). Suggestion: Begin tigecycline 100mg IV as loading dose followed by 50mg IV q12h thereafter and imipenem 500mg IV q12h. Thank you for this consult. Pharmacy dosing service will continue to follow and adjust therapy as needed. Submitted by: Dorothy Morales RPH * Elayne Chow MD - 12/05/2023 1:30 PM EDT Images from the original note were not included. [facility]YSIC[facility] INTERNAL MEDICINE [facility] - 7 ONCOLOGY/STROKE [address] [facility] [id number] Hospital Medicine Progress Note Patient: Ike Jones Date of : 1970 Room: [facility] PCP: AMEENA DIAZ Admission date: 12/02/2023 9:55 PM Encounter date: 12/05/23 Hospital Day: 4 SUBJECTIVE Chief complaints: Chief Complaint Patient presents with Post-op Problem Patient states she had an infected L breast implant and was started on abx on Nov 25. Patient states that on Thursday the implant was removed and Wednesday 11/29 she was discharged from the hospital. Patient states she has been doing her own abx infusions at home through her port since then and saw Dr. Rosado today. Patient states she started having a low grade fever and chills and was sent by infectious disease tonight Interval History: Status: improved. No overnight events or new complaints. Febrile overnight max temperature 102.5 Patient endorses new cough-denies any sputum production. Obtain chest x-ray, & respiratory pathogen panel. Repeat blood cultures have already been ordered. Leukopenia noted Creatinine remains elevated. Review of Systems Constitutional: Positive for fever. Negative for activity change, appetite change, chills, fatigue and unexpected weight change. HENT: Negative for trouble swallowing. Respiratory: Negative for cough, shortness of breath and wheezing. Negative for sputum production. Cardiovascular: Negative for chest pain, palpitations and leg swelling. Gastrointestinal: Negative for abdominal pain, blood in stool, constipation, diarrhea, nausea and vomiting. Negative for melena. Genitourinary: Negative for difficulty urinating. Skin: Positive for wound. Negative for color change and rash. Neurological: Negative for dizziness, seizures, speech difficulty, weakness and headaches. Psychiatric/Behavioral: Negative for sleep disturbance. OBJECTIVE BP (!) 124/99 Pulse 84 Temp 37.5 C (99.5 F) (Oral) Resp 23 Ht 180.3 cm (5' 11 ) Wt 98.5 kg (217 lb 2.5 oz) SpO2 97% BMI 30.29 kg/m Temp: [36.8 C (98.2 F)-39.2 C (102.5 F)] 37.5 C (99.5 F) Pulse: [77-93] 84 Resp: [18-24] 23 BP: (123-163)/(70-99) 124/99 SpO2: [96 %-100 %] 97 % O2 Device: None (Room air) Intake/Output Summary (Last 24 hours) at 12/05/2023 1330 Last data filed at 12/05/2023 0908 Gross per 24 hour Intake 1000 ml Output 1550 ml Net -550 ml Physical Exam Vitals reviewed. Constitutional: General: She is not in acute distress. Appearance: Normal appearance. She is well-developed. HENT: Head: Normocephalic and atraumatic. Right Ear: External ear normal. Left Ear: External ear normal. Nose: Nose normal. Right Sinus: No maxillary sinus tenderness or frontal sinus tenderness. Left Sinus: No maxillary sinus tenderness or frontal sinus tenderness. Mouth/Throat: Lips: [place]. Mouth: Mucous membranes are moist. Pharynx: Oropharynx is clear. Eyes: General: No scleral icterus. Extraocular Movements: Extraocular movements intact. Pupils: Pupils are equal, round, and reactive to light. Neck: Vascular: No carotid bruit or JVD. Cardiovascular: Rate and Rhythm: Normal rate and regular rhythm. Pulses: Radial pulses are 2+ on the right side and 2+ on the left side. Heart sounds: Normal heart sounds, S1 normal and S2 normal. No murmur heard. No friction rub. No gallop. Pulmonary: Effort: Pulmonary effort is normal. Breath sounds: Normal breath sounds. No decreased breath sounds, wheezing, rhonchi or rales. Abdominal: General: Bowel sounds are normal. Palpations: Abdomen is soft. Tenderness: There is no abdominal tenderness. Musculoskeletal: Right lower leg: No edema. Left lower leg: No edema. Skin: General: Skin is warm and dry. Capillary Refill: Capillary refill takes less than 2 seconds. Findings: Erythema and wound present. No rash. Comments: Surgical site examined, appears clean and dry. Mild erythema noted Neurological: General: No focal deficit present. Mental Status: She is alert and oriented to person, place, and time. Psychiatric: Attention and Perception: Attention normal. Mood and Affect: Mood and affect normal. Behavior: Behavior normal. Behavior is cooperative. Medications Scheduled: apixaban, 5 mg, oral, BID ciprofloxacin HCl, 500 mg, oral, Q24H RADHA clarithromycin, 500 mg, oral, Q12H RADHA [START ON 12/06/2023] cyanocobalamin, 1,000 mcg, oral, Daily iron sucrose, 200 mg, intravenous, Daily magnesium oxide, 400 mg, oral, BID metoprolol succinate XL, 100 mg, oral, BID [START ON 12/06/2023] potassium chloride, 20 mEq, oral, Daily sodium chloride, 3 mL, intravenous, Q12H RADHA Infusions: lactated ringer's, 100 mL/hr, Last Rate: 100 mL/hr (12/05/23 0641) As Needed: acetaminophen albuterol obgjpju-jtibnisddxefa-raeapzvy calcium gluconate calcium gluconate calcium gluconate cyclobenzaprine dextrose dextrose 50 % in water (D50W) hydrALAZINE labetaloL magnesium sulfate ondansetron oxyCODONE potassium chloride OR potassium chloride sennosides-docusate sodium sodium phosphate IV OR sodium phosphate IV - central line OR sod phos di, mono-K phos mono sodium chloride traZODone Allergies: Meperidine, Daptomycin, and Adhesive Code Status: Full Code Labs Recent Results (from the past 24 hour(s)) Potassium Collection Time: 12/04/23 4:56 PM Result Value Ref Range Potassium, Bld 3.7 3.5 - 5.0 mmol/L Vitamin B12 Collection Time: 12/04/23 4:56 PM Result Value Ref Range Vitamin B-12 185 180 - 914 pg/mL Iron and TIBC Collection Time: 12/04/23 4:56 PM Result Value Ref Range Iron <10 (L) 50 - 170 ug/dL Tibc-calc only do not order 272 250 - 425 ug/dL Iron Saturation <4 (L) 15 - 50 % SATURATION Folate Collection Time: 12/04/23 4:56 PM Result Value Ref Range Folate 9.7 >5.8 ng/mL Comprehensive metabolic panel Collection Time: 12/05/23 5:45 AM Result Value Ref Range Sodium 139 134 - 146 mmol/L Potassium, Bld 3.6 3.5 - 5.0 mmol/L Chloride 105 98 - 109 mmol/L CO2 26 22 - 32 mmol/L Anion gap 8 5 - 15 mmol/L BUN 19 5 - 23 mg/dL Creatinine 2.61 (H) 0.40 - 1.00 mg/dL Glucose 95 65 - 99 mg/dL Calcium 9.4 8.5 - 10.5 mg/dL Total Protein 5.6 (L) 6.0 - 8.0 g/dL Albumin 3.2 3.2 - 5.3 g/dL Alkaline Phosphatase 58 39 - 130 U/L AST 15 0 - 41 U/L ALT 9 0 - 31 U/L Total bilirubin 0.4 0.3 - 1.2 mg/dL eGFR (CKD-EPI)non-race dependent 21 (L) >59 ml/min/1.73sq.m Magnesium Collection Time: 12/05/23 5:45 AM Result Value Ref Range Magnesium 1.5 (L) 1.8 - 2.6 mg/dL CBC auto differential Collection Time: 12/05/23 5:45 AM Result Value Ref Range White Blood Cells 3.9 (L) 4.0 - 11.0 X10E9/L RBC count 2.50 (L) 3.80 - 5.20 X10E12/L Hemoglobin 7.6 (L) 11.7 - 15.5 g/dL Hematocrit 22.2 (L) 35 - 47 % MCV 89 80 - 100 fL MCH 30.5 27 - 34 pg MCHC 34.4 32 - 36 g/dL RDW 13.8 11.5 - 15.0 % Platelets 195 150 - 450 X10E9/L MPV 6.4 (L) 7 - 12 fL % neutrophils 66.9 % % lymphocytes 11.8 % % monocytes 11.8 % % eosinophils 8.8 % % Basophils 0.7 % Neutrophils Absolute (A) 2.6 1.5 - 6.6 X10E9/L Lymphocytes Absolute 0.5 (L) 1.0 - 3.5 X10E9/L Monocytes Absolute 0.5 0 - 0.9 X10E9/L Eosinophils Absolute 0.3 0.0 - 0.4 X10E9/L Basophils Absolute 0.0 0.0 - 0.2 X10E9/L Phosphorus Collection Time: 12/05/23 5:45 AM Result Value Ref Range Phosphorus 4.1 2.4 - 4.9 mg/dL Radiology X-ray chest 1 view Result Date: 12/05/2023 Clinical history: Fever Views: 1 Comparison: None Findings/Impression: 1. Heart size stable. No focal infiltrate or volume loss. No pneumothorax. 2. Scoliosis. 3. No pneumothorax nor large effusion. 4. In summary findings most consistent with mild vascular congestion.. Finalized by Brice Sanders MD on 12/05/2023 12:16 PM HOSPITAL PROBLEM LIST Principal Problem: MIRNA (acute kidney injury) ([facility]) Active Problems: Hypertension Malignant neoplasm of lower-inner quadrant of right breast of female, estrogen receptor positive ([facility]) Cellulitis of left breast Infection of deep incisional surgical site after procedure ASSESSMENT & PLAN Acute kidney injury, multifactorial in the setting of decreased p.o. intake, infection, and nephrotoxic pharmacological agents -nephrology following -renal ultrasound: Negative -continue IV fluids Post-operative infection of left breast implant Culture growing mycobacterium abscessus -infectious disease and plastic surgery following -continue Cipro and Biaxin -follow cultures Right breast cancer, s/p bilateral mastectomy Followed by Dr. Hope, will consult if any needs while inpatient History of DVT Continue eliquis HTN Blood pressure is elevated this morning, Toprol increased Hold lisinopril, lasix and spironolactone until MIRNA improves -continuous telemetry Normocytic normochromic anemia Iron-deficiency anemia -Borderline vitamin B12 give 1 x dose IM then oral daily supplements -HGB stable at 7.6, iron saturation 4% -IV Venofer Hypokalemia Hypomagnesemia -replace and monitor electrolytes per protocol and scale New fever ovenright: check u/a, CXR, bloo dcx. Abx changes made per ID. Liliane Valle, FLUOROSCOPE OPERATOR-GARMENT STEAMER 12/05/23 1527 Physician Attestation I personally performed a face to face diagnostic evaluation on this patient on 12/05/23 I have repeated the ross portions of the history, review of systems,physical exam, reviewed relevantlaboratory findings and imaging reports/films. I agree with the CELINA findings and the plan . Elayne Chow MD * Epifanio Henry MD - 12/05/2023 9:34 AM EDT Images from the original note were not included. Nephrology Daily Progress Note INTERVAL HISTORY: Denies any shortness breath. Denies any chest pain. Denies any nausea or vomiting. VITAL SIGNS TREND: Vitals: 12/04/23 2355 12/05/23 0553 12/05/23 0644 12/05/23 0857 BP: (!) 138/92 (!) 163/92 (!) 156/92 (!) 150/91 Pulse: 77 85 85 Resp: 19 19 Temp: 37.1 C (98.7 F) 37.2 C (98.9 F) 37 C (98.6 F) TempSrc: Oral Oral Oral SpO2: 97% 96% 96% Weight: 98.5 kg (217 lb 2.5 oz) Height: INTAKE/OUTPUT: Intake/Output Summary (Last 24 hours) at 12/05/2023 0934 Last data filed at 12/05/2023 0908 Gross per 24 hour Intake 1600 ml Output 2600 ml Net -1000 ml I/O this shift: In: - Out: 600 [Urine:600] WEIGHT: Last 3 Weight Readings 12/03/23 0006 12/04/23 0544 12/05/23 0553 Weight: 97.3 kg (214 lb 8.1 oz) 96.9 kg (213 lb 10 oz) 98.5 kg (217 lb 2.5 oz) PHYSICAL EXAM: Blood pressure (!) 150/91, pulse 85, temperature 37 C (98.6 F), temperature source Oral, resp. rate19, height 180.3 cm (5' 11 ), weight 98.5 kg (217 lb 2.5 oz), SpO2 96%. Temp: [36.4 C (97.5 F)-39.2 C (102.5 F)] 37 C (98.6 F) Pulse: [75-93] 85 Resp: [18-23] 19 BP: (123-163)/(70-93) 150/91 SpO2: [96 %-100 %] 96 % O2 Device: None (Room air) General appearance: alert in no apparent distress. HEENT: no JVD, no lymphadenopathy. Heart exam: normal S1-S2 Lungs: clear to auscultation bilaterally Abdomen: soft, no tenderness, no guarding, positive bowel sounds Extremities: no edema Vascular: adequate pulses and no carotid bruits. Musculoskeletal: no joint tenderness or swelling. LABORATORY EVALUATION: Results from last 7 days Lab Units 12/05/23 0545 12/04/23 1656 12/04/23 0305 12/03/23 1220 12/03/23 0350 12/02/23 2213 11/30/23 0930 SODIUM mmol/L 139 -- 138 -- 137 133* 142 POTASSIUM mmol/L 3.6 3.7 3.4* 3.6 3.1* 3.2* 3.3* CHLORIDE mmol/L 105 -- 107 -- 104 99 105 CO2 mmol/L 26 -- 25 -- 25 25 29 ANION GAP mmol/L 8 -- 6 -- 8 9 8 BUN mg/dL 19 -- 24* -- 25* 27* 9 CREATININE mg/dL 2.61* -- 2.81* -- 2.49* 2.52* 0.62 CALCIUM mg/dL 9.4 -- 9.2 -- 9.2 9.8 9.6 MAGNESIUM mg/dL 1.5* -- 1.9 2.2 1.5* -- -- PHOSPHORUS mg/dL 4.1 -- 3.9 -- -- -- -- CALCIUM, IONIZED mg/dL -- -- 5.0 -- -- -- -- Results from last 7 days Lab Units 12/05/2354412/04/2330412/03/23 1737 12/03/23 1628 12/03/2334912/02/23 23012/02/23 221 TOTAL PROTEIN g/dL 5.6* 5.4* -- 5.4* 5.5* -- 6.4 ALBUMIN g/dL 3.2 3.2 -- 3.1* 3.3 -- 3.8 AST U/L 15 15 -- -- 19 -- 24 ALT U/L 9 9 -- -- 10 -- 12 TOTAL BILIRUBIN mg/dL 0.4 0.5 -- -- 0.6 -- 0.6 BILIRUBIN, URINE -- -- Negative -- -- Negative -- ALK PHOS U/L 58 56 -- -- 60 -- 69 Results from last 7 days Lab Units 12/05/23 0512/04/2330412/03/2334912/02/23221211/30/23 0930 WBC X10E9/L 3.9* 4.3 5.8 7.8 6.5 HEMOGLOBIN g/dL 7.6* 7.3* 8.0* 9.1* 8.8* HEMATOCRIT % 22.2* 21.2* 22.9* 26.0* 25.2* PLATELETS X10E9/L 195 201 233 279 294 Lab Results Component Value Date IRON <10 (L) 12/04/2023 TIBC 272 12/04/2023 FERRITIN 8 (L) 01/31/2022 IRONSAT <4 (L) 12/04/2023 Results from last 7 days Lab Units 12/05/2354412/04/2330412/03/2334912/02/23221211/30/23 0930 GLUCOSE mg/dL 95 91 103* 106* 84 Results from last 7 days Lab Units 12/03/23 1628 11/28/23 1551 CK TOTAL U/L 52 45 CURRENT MEDICATIONS: apixaban, 5 mg, oral, BID ciprofloxacin HCl, 500 mg, oral, Q24H RADHA clarithromycin, 500 mg, oral, Q12H RADHA metoprolol succinate XL, 100 mg, oral, Daily sodium chloride, 3 mL, intravenous, Q12H RADHA PROBLEM LIST: Acute kidney injury which could related to Acute Tubular Necrosis secondary to sepsis versus vancomycin nephrotoxicity versus volume depletion secondary to poor p.o. intake in the setting of ongoing intake of chlorthalidone, Lasix, lisinopril and spironolactone. From December of 2023 Renal ultrasound revealed right kidney of 11.4 cm left of 14.7 cm with no evidence of hydronephrosis, CPK was 52, serum protein electrophoresis was negative monoclonal bands, JUSTIN anti MPO anti PR3 and anti-GBM were negative, C3 was 158 and C4 was 38, urine dipstick was negative for blood or protein, fractional excretion of sodium was 1.8% and random urine protein to creatinine ratio was 0.3 grams/gram. Left breast cellulitis with infected seroma status post removal of left breast tortilla maker on November 27, 2023 Hypertension Edema Depression/anxiety DVT Right-sided breast cancer status post bilateral mastectomy with a lymph node dissection with subsequent bilateral breast reconstruction on October 28, 2023 MediPort placement Bilateral knee arthroscopy Tonsillectomy and adenoidectomy IMPRESSION: 1. Acute kidney injury which is likely related to Acute Tubular Necrosis in the setting of sepsis versus volume depletion secondary to decreased p.o. intake in the setting of ongoing intake of chlorthalidone, Lasix, lisinopril as well as spironolactone as well as possibly vancomycin nephrotoxicity.Creatinine is up overnight. Urine output is adequate 2. Hypertension: With elevated blood pressure on Toprol XL. On IV hydralazine and IV labetalol p.r.n. for elevated blood pressure. 3. Left breast and chest wall cellulitis: On Cipro and clarithromycin per Infectious Disease 4. Hypokalemia: On lactated Ringer's. Continue to follow potassium and replace per sliding scale asneeded 5. Hypomagnesemia: Continue to follow magnesium and replace per sliding scale as needed PLAN: 1. Continue IV fluids. 2. Increase Toprol XL for better BP control 3. Continue to follow electrolytes and replace per sliding scale as needed 4. Add magnesium oxide. 5. Add potassium chloride 6. Reassess blood pressure in a.m. 7. Reassess need for IV fluids in a.m. Epifanio Henry M.D. For questions please call: Answering Service at [phone] Or Office at [phone] This note was created with the assistance of a speech-recognition program. Although the intention is to generate a document that actually reflects the content of the visit, no guarantees can be provided that every mistake has been identified and corrected by editing. * Elayne Chow MD - 12/04/2023 3:39 PM EDT Images from the original note were not included. [facility] - ONCOLOGY/STROKE [address] [place] [id number] Hospital Medicine Progress Note Patient: Ike Jones Date of : 1970 Room: [facility] PCP: AMEENA DIAZ Admission date: 12/02/2023 9:55 PM Encounter date: 12/04/23 Hospital Day: 3 SUBJECTIVE Chief complaints: Chief Complaint Patient presents with Post-op Problem Patient states she had an infected L breast implant and was started on abx on Nov 25. Patient states that on Thursday the implant was removed and Wednesday 11/29 she was discharged from the hospital. Patient states she has been doing her own abx infusions at home through her port since then and saw Dr. Rosado today. Patient states she started having a low grade fever and chills and was sent by infectious disease tonight Interval History: Status: improved. No overnight events or new complaints. Low-grade fever overnight 99.9 Creatinine slightly increased from yesterday Review of Systems Constitutional: Positive for fever. Negative for activity change, appetite change, chills, fatigue and unexpected weight change. HENT: Negative for trouble swallowing. Respiratory: Negative for cough, shortness of breath and wheezing. Negative for sputum production. Cardiovascular: Negative for chest pain, palpitations and leg swelling. Gastrointestinal: Negative for abdominal pain, blood in stool, constipation, diarrhea, nausea and vomiting. Negative for melena. Genitourinary: Negative for difficulty urinating. Skin: Positive for wound. Negative for color change and rash. Neurological: Negative for dizziness, seizures, speech difficulty, weakness and headaches. Psychiatric/Behavioral: Negative for sleep disturbance. OBJECTIVE BP 134/84 Pulse 75 Temp 36.4 C (97.5 F) (Oral) Resp 19 Ht 180.3 cm (5' 11 ) Wt 96.9 kg (213 lb 10 oz) SpO2 97% BMI 29.79 kg/m Temp: [36.4 C (97.5 F)-37.7 C (99.9 F)] 36.4 C (97.5 F) Pulse: [75-90] 75 Resp: [14-20] 19 BP: (133-151)/(74-94) 134/84 SpO2: [96 %-99 %] 97 % O2 Device: None (Room air) Intake/Output Summary (Last 24 hours) at 12/04/2023 1539 Last data filed at 12/04/2023 1216 Gross per 24 hour Intake 3832.34 ml Output 3150 ml Net 682.34 ml Physical Exam Vitals reviewed. Constitutional: General: She is not in acute distress. Appearance: Normal appearance. She is well-developed. HENT: Head: Normocephalic and atraumatic. Right Ear: External ear normal. Left Ear: External ear normal. Nose: Nose normal. Right Sinus: No maxillary sinus tenderness or frontal sinus tenderness. Left Sinus: No maxillary sinus tenderness or frontal sinus tenderness. Mouth/Throat: Lips: [place]. Mouth: Mucous membranes are moist. Pharynx: Oropharynx is clear. Eyes: General: No scleral icterus. Extraocular Movements: Extraocular movements intact. Pupils: Pupils are equal, round, and reactive to light. Neck: Vascular: No carotid bruit or JVD. Cardiovascular: Rate and Rhythm: Normal rate and regular rhythm. Pulses: Radial pulses are 2+ on the right side and 2+ on the left side. Heart sounds: Normal heart sounds, S1 normal and S2 normal. No murmur heard. No friction rub. No gallop. Pulmonary: Effort: Pulmonary effort is normal. Breath sounds: Normal breath sounds. No decreased breath sounds, wheezing, rhonchi or rales. Abdominal: General: Bowel sounds are normal. Palpations: Abdomen is soft. Tenderness: There is no abdominal tenderness. Musculoskeletal: Right lower leg: No edema. Left lower leg: No edema. Skin: General: Skin is warm and dry. Capillary Refill: Capillary refill takes less than 2 seconds. Findings: Erythema and wound present. No rash. Comments: Surgical site examined, appears clean and dry. Mild erythema noted Neurological: General: No focal deficit present. Mental Status: She is alert and oriented to person, place, and time. Psychiatric: Attention and Perception: Attention normal. Mood and Affect: Mood and affect normal. Behavior: Behavior normal. Behavior is cooperative. Medications Scheduled: apixaban, 5 mg, oral, BID ciprofloxacin HCl, 500 mg, oral, Q24H RADHA clarithromycin, 500 mg, oral, Q12H RADHA metoprolol succinate XL, 100 mg, oral, Daily sodium chloride, 3 mL, intravenous, Q12H RADHA Infusions: lactated ringer's, 100 mL/hr, Last Rate: 100 mL/hr (12/04/23 1212) As Needed: acetaminophen albuterol webipdu-zwwhwokhzbtfa-derircvz calcium gluconate calcium gluconate calcium gluconate cyclobenzaprine dextrose dextrose 50 % in water (D50W) hydrALAZINE labetaloL magnesium sulfate ondansetron oxyCODONE potassium chloride OR potassium chloride sennosides-docusate sodium sodium phosphate IV OR sodium phosphate IV - central line OR sod phos di, mono-K phos mono sodium chloride traZODone Allergies: Meperidine, Daptomycin, and Adhesive Code Status: Full Code Labs Recent Results (from the past 24 hour(s)) JUSTIN Screen w/ Reflex Collection Time: 12/03/23 4:28 PM Result Value Ref Range Justin screen Negative Negative^Negative Complement profile (C3 AND C4) Collection Time: 12/03/23 4:28 PM Result Value Ref Range C3 Complement 158 86 - 184 mg/dL C4 Complement 38 16 - 47 mg/dL Myeloperoxidase AB Collection Time: 12/03/23 4:28 PM Result Value Ref Range Myeloperoxidase AB <0.2 <1.0 AI Proteinase 3 AB PR3 Collection Time: 12/03/23 4:28 PM Result Value Ref Range Proteinase 3 IgG AB <0.2 <1.0 AI Glomerular basement membrane IgG AB Collection Time: 12/03/23 4:28 PM Result Value Ref Range Glomerular basement membrane IgG AB <0.2 <1.0 AI CK Total Collection Time: 12/03/23 4:28 PM Result Value Ref Range Total CK 52 24 - 170 U/L Protein electrophoresis, serum Collection Time: 12/03/23 4:28 PM Result Value Ref Range Total Protein 5.4 (L) 6.0 - 8.0 g/dL Albumin 3.1 (L) 3.4 - 5.3 g/dL Alpha 1 0.4 0.1 - 0.4 g/dL Alpha 2 0.7 0.4 - 1.1 g/dL Beta 0.7 0.5 - 1.2 g/dL Gamma Globulin 0.6 0.5 - 1.6 g/dL Prot. electrophoresis interp Unremarkable protein distribution, no monoclonal bands. Urinalysis Collection Time: 12/03/23 5:37 PM Result Value Ref Range Color YELLOW YELLOW^YELLOW Turbidity CLEAR CLEAR^CLEAR Specific gravity 1.010 1.003 - 1.035 Nitrite Negative Negative^Negative Ph urine 6.0 5.0 - 8.5 Leukocyte esterase Negative Negative^Negative Protein Negative Negative^Negative mg/dL Glucose, Ur Negative Negative^Negative mg/dL Ketones urine Negative Negative^Negative mg/dL Urobilinogen 0.2 <1.1 eu/dL Bilirubin, urine Negative Negative^Negative Hemoglobin Negative Negative^Negative Protein creat ratio Collection Time: 12/03/23 5:37 PM Result Value Ref Range Urine creatinine 43.64 mg/dL Protein Urine Random 130 (H) <120 mg/L U/Pro/Church History Professor Ratio Calc 0.30 (H) <0.2 Sodium, urine, random Collection Time: 12/03/23 5:37 PM Result Value Ref Range Sodium Urine Random 43 mmol/L Comprehensive metabolic panel Collection Time: 12/04/23 3:05 AM Result Value Ref Range Sodium 138 134 - 146 mmol/L Potassium, Bld 3.4 (L) 3.5 - 5.0 mmol/L Chloride 107 98 - 109 mmol/L CO2 25 22 - 32 mmol/L Anion gap 6 5 - 15 mmol/L BUN 24 (H) 5 - 23 mg/dL Creatinine 2.81 (H) 0.40 - 1.00 mg/dL Glucose 91 65 - 99 mg/dL Calcium 9.2 8.5 - 10.5 mg/dL Total Protein 5.4 (L) 6.0 - 8.0 g/dL Albumin 3.2 3.2 - 5.3 g/dL Alkaline Phosphatase 56 39 - 130 U/L AST 15 0 - 41 U/L ALT 9 0 - 31 U/L Total bilirubin 0.5 0.3 - 1.2 mg/dL eGFR (CKD-EPI)non-race dependent 19 (L) >59 ml/min/1.73sq.m Magnesium Collection Time: 12/04/23 3:05 AM Result Value Ref Range Magnesium 1.9 1.8 - 2.6 mg/dL CBC auto differential Collection Time: 12/04/23 3:05 AM Result Value Ref Range White Blood Cells 4.3 4.0 - 11.0 X10E9/L RBC count 2.37 (L) 3.80 - 5.20 X10E12/L Hemoglobin 7.3 (L) 11.7 - 15.5 g/dL Hematocrit 21.2 (L) 35 - 47 % MCV 90 80 - 100 fL MCH 30.7 27 - 34 pg MCHC 34.3 32 - 36 g/dL RDW 14.0 11.5 - 15.0 % Platelets 201 150 - 450 X10E9/L MPV 6.4 (L) 7 - 12 fL % neutrophils 70.6 % % lymphocytes 10.0 % % monocytes 10.6 % % eosinophils 8.5 % % Basophils 0.3 % Neutrophils Absolute (A) 3.1 1.5 - 6.6 X10E9/L Lymphocytes Absolute 0.4 (L) 1.0 - 3.5 X10E9/L Monocytes Absolute 0.5 0 - 0.9 X10E9/L Eosinophils Absolute 0.4 0.0 - 0.4 X10E9/L Basophils Absolute 0.0 0.0 - 0.2 X10E9/L Phosphorus Collection Time: 12/04/23 3:05 AM Result Value Ref Range Phosphorus 3.9 2.4 - 4.9 mg/dL Ionized calcium Collection Time: 12/04/23 3:05 AM Result Value Ref Range Calcium, ionized 5.0 4.5 - 5.3 mg/dL Radiology Ultrasound retroperitoneal complete Result Date: 12/04/2023 ULTRASOUND RETROPERITONEUM INDICATION: Acute renal injury. COMPARISON: None available. FINDINGS: Ultrasound evaluation of the kidneys and bladder was performed. Right kidney: 11.4 cm in maximal length. No collecting system dilatation, calculi, or contour deforming mass lesion. Left kidney: 14.7 cm in maximal length. No collecting system dilatation, calculi, or contour deforming mass lesion. Bladder: Unremarkable fluid filled bladder. Ureteral jets not seen. IMPRESSION: 1. No acute abnormality. No stone or collecting system dilatation. Finalized by Jesus Jack MD on 12/04/2023 9:23 AM HOSPITAL PROBLEM LIST Principal Problem: MIRNA (acute kidney injury) ([facility]) Active Problems: Hypertension Malignant neoplasm of lower-inner quadrant of right breast of female, estrogen receptor positive ([facility]) Cellulitis of left breast Infection of deep incisional surgical site after procedure ASSESSMENT & PLAN Acute kidney injury, multifactorial in the setting of decreased p.o. intake, infection, and nephrotoxic pharmacological agents -nephrology following -renal ultrasound: Negative -continue IV fluids Post-operative infection of left breast implant Culture growing mycobacterium abscessus -infectious disease and plastic surgery following -continue Cipro and Biaxin -follow cultures Right breast cancer, s/p bilateral mastectomy Followed by Dr. Hope, will consult if any needs while inpatient History of DVT Continue eliquis, reports she has been resumed on this post surgery and is doing well with no bleeding HTN Normotensive, heart rate well-controlled and appears euvolemic. Hold lisinopril, lasix and spironolactone until MIRNA improves -continuous telemetry Normocytic normochromic anemia -HGB stable at 7.3, which is the low side of her normal -check iron, B12 and folate Physician Attestation I personally performed a face to face diagnostic evaluation on this patient on 12/04/23 I have repeated the ross portions of the history, review of systems,physical exam, reviewed relevantlaboratory findings and imaging reports/films. I agree with the CELINA findings and the plan . MD Liliane Madrid, FLUOROSCOPE OPERATOR-GARMENT STEAMER 12/04/23 1744 * Carlene Noguera MD - 12/04/2023 11:27 AM EDT Images from the original note were not included. [facility] - Daily Progress Note Ike Jones Admission date/time 12/02/2023 9:55 PM Today's Date and Time: 12/04/2023, 11:27 AM Impression : Postop infection of left breast tissue tortilla maker-culture growing acid-fast bacilli Acute kidney injury History of breast cancer S/p bilateral mastectomies S/p bilateral breast reconstruction October 28, 2023 History of DVT-on Eliquis Presence of Port-A-Cath Recommendations: Awaiting cultures Continue Cipro and clarithromycin EKG management as per Internal medicine team Follow-up CBC renal function Follow-up temperature Supportive care FOLLOW UP/chief complaints Left breast surgical site infection Interval History: redness in the left breast surgical site overnight but it is better now. Had a temperature 99.9 . No cough shortness of breath. No vomiting Making urine On antibiotic ROS: Negative except as above Social History: Social History Socioeconomic History Marital status: Spouse name: Not on file Number of children: Not on file Years of education: Not on file Highest education level: Some college, no degree Occupational History Not on file Tobacco Use Smoking status: Never Smokeless tobacco: Never Vaping Use Vaping status: Never Used Substance and Sexual Activity Alcohol use: Yes Comment: Socially Drug use: Never Sexual activity: Not on file Other Topics Concern Not on file Social History Narrative Not on file Social Determinants of Health Financial Resource Strain: Low Risk (02/27/2022) Overall Financial Resource Strain (CARDIA) Difficulty of Paying Living Expenses: Not hard at all Food Insecurity: No Food Insecurity (12/03/2023) Hunger Screening Food Insecurity - Worry: Never True Food Insecurity - Inability: Never True Transportation Needs: No Transportation Needs (12/03/2023) PRAPARE - Transportation Lack of Transportation (Medical): No Lack of Transportation (Non-Medical): No Physical Activity: Sufficiently Active (02/27/2022) Exercise Vital Sign Days of Exercise per Week: 3 days Minutes of Exercise per Session: 60 min Stress: Stress Concern Present (02/27/2022) [place] Citizen [place] [employer] Occupational Health - Occupational Stress Questionnaire Feeling of Stress : To some extent Social Connections: Socially Integrated (02/27/2022) Social Connection and Isolation Panel [NHANES] Frequency of Communication with Friends and Family: Twice a week Frequency of Social Gatherings with Friends and Family: Three times a week Attends Gnosticist Services: More than 4 times per year Active Member of Clubs or Organizations: Yes Attends Club or Organization Meetings: 1 to 4 times per year Marital Status: Interpersonal Safety: Not At Risk (12/03/2023) Humiliation, Afraid, Rape, and Kick questionnaire Fear of Current or Ex-Partner: No Emotionally Abused: No Physically Abused: No Sexually Abused: No Housing Instability: Low Risk (12/03/2023) Housing Instability Housing Instability: No Family History: Family History Adopted: Yes Physical Examination : Vitals: 12/04/23 0309 12/04/23 0544 12/04/23 0805 12/04/23 1112 BP: 136/74 133/83 134/84 Pulse: 90 78 75 Resp: 20 19 Temp: 37.7 C (99.9 F) 37.1 C (98.7 F) 36.9 C (98.5 F) 36.4 C (97.5 F) TempSrc: Oral Oral Oral Oral SpO2: 99% 97% 97% Weight: 96.9 kg (213 lb 10 oz) Height: Temperature Range: Temp: 36.4 C (97.5 F) Temp Av C (98.6 F) Min: 36.4 C (97.5 F) Max: 37.7 C (99.9 F) With nurse General Appearance: Awake, alert, and in no apparent distress Pulmonary/Chest: No accessory muscle use Abdomen: soft, nondistended Extremities: No cyanosis, clubbing, edema, or effusions. Skin:no unusual rash Breast surgical site with some erythema and warmth Laboratory data: I have independently reviewed the following labs: Results from last 7 days Lab Units 12/04/23 0305 12/03/23 0350 12/02/23 2213 WBC X10E9/L 4.3 5.8 7.8 HEMOGLOBIN g/dL 7.3* 8.0* 9.1* HEMATOCRIT % 21.2* 22.9* 26.0* PLATELETS X10E9/L 201 233 279 Results from last 7 days Lab Units 12/04/23 0305 12/03/23 1220 12/03/23 0350 12/02/232212 POTASSIUM mmol/L 3.4* 3.6 3.1* 3.2* CHLORIDE mmol/L 107 -- 104 99 CO2 mmol/L 25 -- 25 25 BUN mg/dL 24* -- 25* 27* CREATININE mg/dL 2.81* -- 2.49* 2.52* EGFR (CKD-EPI)NON-RACE DEPENDENT ml/min/1.73sq.m 19* -- 23* 22* CALCIUM mg/dL 9.2 -- 9.2 9.8 MAGNESIUM mg/dL 1.9 2.2 1.5* -- Results from last 7 days Lab Units 12/04/23 0305 12/03/23 0350 12/02/232212 ALK PHOS U/L 56 60 69 ALT U/L 9 10 12 AST U/L 15 19 24 Lab Results Component Value Date CRP 2.6 (H) 11/26/2023 Lab Results Component Value Date SEDRATE 30 11/26/2023 Cultures: Microbiology Results Procedure Component Value Units Date/Time Urine culture [[id number]] Collected: 12/02/23 2305 Specimen: Urine, Clean Catch Midstream Updated: 12/04/23 0709 Culture NO GROWTH AT <1000 CFU/mL Blood culture [[id number]] Collected: 12/02/23 2231 Specimen: Blood, Line Draw Updated: 12/04/23 0815 Specimen Notes SUBOPTIMAL VOLUME OF BLOOD COLLECTED, RESULTS MAY BE AFFECTED. Culture NO GROWTH 1 DAY Blood culture [[id number]] Collected: 12/02/23 221 Specimen: Blood, Line Draw Updated: 12/04/23 0815 Specimen Notes SUBOPTIMAL VOLUME OF BLOOD COLLECTED, RESULTS MAY BE AFFECTED. Culture NO GROWTH 1 DAY Anaerobic culture [[id number]] Collected: 11/27/23 1548 Specimen: Body Fluid from Breast, Left Updated: 12/02/23 0851 Specimen Notes SPECIMEN A Culture NO GROWTH 5 DAYS Fungal culture includes fungal smear [[id number]] Collected: 11/27/23 1548 Specimen: Body Fluid from Breast, Left Updated: 11/28/23 0702 Specimen Notes SPECIMEN A Fungal smear -- NO FUNGAL ELEMENTS SEEN ON DIRECT SMEAR Culture PENDING AFB culture concentrated includes AFB smear [[id number]] (Abnormal) Collected: 11/27/23 1548 Specimen: Body Fluid from Breast, Left Updated: 12/01/23 1056 Specimen Notes SPECIMEN A AFB Smear NO ACID FAST BACILLI (CONCENTRATED SMEAR) Culture ACID FAST BACILLI ISOLATED Aspirate culture includes gram stain [[id number]] (Abnormal) Collected: 11/27/23 1548 Specimen: Aspirate Atr Updated: 12/01/23 1544 Specimen Notes SPECIMEN A Gram Stain Result >25 WHITE BLOOD CELLS/LPF 0 SQUAMOUS EPITHELIAL CELLS/LPF NO ORGANISMS SEEN Culture MODERATE ACID FAST BACILLI ISOLATED REPORT UPDATED GROWTH OBSERVED AT 48 HOURS Imaging Studies: Ultrasound retroperitoneal complete Result Date: 12/04/2023 ULTRASOUND RETROPERITONEUM INDICATION: Acute renal injury. COMPARISON: None available. FINDINGS: Ultrasound evaluation of the kidneys and bladder was performed. Right kidney: 11.4 cm in maximal length. No collecting system dilatation, calculi, or contour deforming mass lesion. Left kidney: 14.7 cm in maximal length. No collecting system dilatation, calculi, or contour deforming mass lesion. Bladder: Unremarkable fluid filled bladder. Ureteral jets not seen. IMPRESSION: 1. No acute abnormality. No stone or collecting system dilatation. Finalized by Jesus Jack MD on 12/04/2023 9:23 AM Medications: apixaban, 5 mg, oral, BID ciprofloxacin HCl, 500 mg, oral, Q24H RADHA clarithromycin, 500 mg, oral, Q12H RADHA metoprolol succinate XL, 100 mg, oral, Daily sodium chloride, 3 mL, intravenous, Q12H RADHA Thank you for allowing us to participate in the care of this patient. Please call with questions. Carlene Noguera MD [employer] messagin This note was completed using a voice advertising representative system. Every effort was made to ensure accuracy. However, inadvertent computerized advertising representative errors may be present. * DAVID Tinajero - 12/04/2023 11:05 AM EDT NUTRITION ADULT INITIAL EVALUATION NUTRITION ASSESSMENT: Reason to be seen: Database trigger for decreased PO intake. Patient History: Admit Diagnosis: Patient Active Problem List Diagnosis Arthritis of left knee Cardiac arrhythmia Chronic hypokalemia Complete tear, knee, anterior cruciate ligament Epidermoid cyst of skin Hypertension Hypertensive kidney disease, stage II Internal derangement of right knee Palpitations Primary osteoarthritis Secondary cataract of right eye Recurrent UTI Asthma, exercise induced Iron deficiency anemia Malignant neoplasm of lower-inner quadrant of right breast of female, estrogen receptor positive ([facility]) S/P breast reconstruction, bilateral Cellulitis of left breast MIRNA (acute kidney injury) ([facility]) Past Medical History: Past Medical History: Diagnosis Date Breast cancer ([facility]) 2023 mammary carcinoma Deep vein thrombosis ([facility]) 09/18/2023 Left calf Hypertension Knee pain PONV (postoperative nausea and vomiting) Port-A-Cath in place 05/13/2023 Visual impairment Glasses Past Surgical History: Past Surgical History: Procedure Laterality Date ARTHROSCOPIC REPAIR ACL Right 2006 ARTHROSCOPIC REPAIR ACL Left 08/26/2021 BREAST BIOPSY Right 2023 mammary carcinoma EXCISION LYMPH NODE AXILLARY DISSECTION Right 10/28/2023 Performed by Christy He MD at [facility] HYSTERECTOMY IMMEDIATE BREAST RECONSTRUCTION WITH TISSUE SMELTER CHARGER PLACEMENT Bilateral 10/28/2023 Performed by Jhon Rosado MD at [facility] INCISION DRAINAGE BREAST Left 11/27/2023 Performed by Jhon Rosado MD at [facility] MAGNETIC SEED LOCALIZATION EXCISION/BIOPSY MASS BREAST (MAG SEED LOCALIZED TARGETED DISSECTION FOR RETRIEVAL OF PREVIOUSLY CLIPPED LYMPH NODE) Right 10/28/2023 Performed by Christy He MD at [facility] MASTECTOMY BREAST SIMPLE RISK REDUCING SKIN SPARING Left 10/28/2023 Performed by Christy He MD at [facility] MASTECTOMY BREAST SIMPLE SKIN SPARING Right 10/28/2023 Performed by Christy He MD at [facility] MENISCECTOMY Bilateral 2022 PORTACATH PLACEMENT Left left chest REMOVAL SMELTER CHARGER TISSUE BREAST Left 11/27/2023 Performed by Jhon Rosado MD at [facility] RIGHT AXILLARY PROPHYLACTIC BYPASS LYMPHOVENOUS Right 10/28/2023 Performed by Jhon Rosado MD at [facility] TONSILLECTOMY AND ADENOIDECTOMY Age 3 TUMOR REMOVAL back-benign Social/ Cognitive/ Economic: Lives in a 1 story house with significant other. Brief Clinical Summary: This 53 y.o. female who presents with nausea, low grade temperature of 100.9 and feeling generally unwell. Patient has been undergoing IV antibiotics with vancomycin and ertapenem at home due to a post-operative infection of the left breast. PMH: HTN, breast implant removed 11/26 with D/C home 11/29. Biochemical Data, Medical Tests, and Procedures: --- Labs: Results from last 3 days Lab Units 12/04/23 03012/03/23 1628 12/03/23 1220 12/03/23 0350 12/02/23 2213 SODIUM mmol/L 138 -- -- 137 133* POTASSIUM mmol/L 3.4* -- 3.6 3.1* 3.2* CHLORIDE mmol/L 107 -- -- 104 99 CO2 mmol/L 25 -- -- 25 25 BUN mg/dL 24* -- -- 25* 27* CREATININE mg/dL 2.81* -- -- 2.49* 2.52* CALCIUM mg/dL 9.2 -- -- 9.2 9.8 ALBUMIN g/dL 3.2 3.1* -- 3.3 3.8 ALK PHOS U/L 56 -- -- 60 69 ALT U/L 9 -- -- 10 12 AST U/L 15 -- -- 19 24 Results from last 7 days Lab Units 12/04/23 0305 12/03/23 0350 12/02/23 2213 11/30/23 0930 GLUCOSE mg/dL 91 103* 106* 84 Results from last 3 days Lab Units 12/04/2330412/03/23 0350 12/02/23 2213 WBC X10E9/L 4.3 5.8 7.8 HEMOGLOBIN g/dL 7.3* 8.0* 9.1* HEMATOCRIT % 21.2* 22.9* 26.0* PLATELETS X10E9/L 201 233 279 MCV fL 90 90 90 Results from last 3 days Lab Units 12/04/23 03012/03/23 1220 12/03/23 0350 MAGNESIUM mg/dL 1.9 2.2 1.5* Results from last 3 days Lab Units 12/04/23304 PHOSPHORUS mg/dL 3.9 CALCIUM, IONIZED mg/dL 5.0 Results from last 3 days Lab Units 12/04/23 03012/03/23 1737 12/03/23 035 TOTAL BILIRUBIN mg/dL 0.5 -- 0.6 BILIRUBIN, URINE -- Negative -- Lab Results Component Value Date HGBA1C 5.4 01/31/2022 Lab Results Component Value Date IRON 43 (L) 01/31/2022 TIBC 519 (H) 01/31/2022 FERRITIN 8 (L) 01/31/2022 Lab Results Component Value Date IRONSAT 8 (L) 01/31/2022 Lab Results Component Value Date CHOL 178 01/31/2022 Lab Results Component Value Date CHDL 2.9 01/31/2022 Lab Results Component Value Date HDL 62 01/31/2022 Lab Results Component Value Date LDLCALC 100 01/31/2022 Lab Results Component Value Date TRIG 80 01/31/2022 Lab Results Component Value Date VERYLOWLIP 16 01/31/2022 No results found for: [id number] No results found for: FOLATE No results found for: VITD25 Comments (labs): Low: H/H, RBC, K+, GFR High: BUN/Cr Medications/ Parenteral: Eliquis, ATB, Medications Prior to Admission Medication Sig Dispense Refill Last Dose acetaminophen (TYLENOL EXTRA STRENGTH) 500 mg tablet Take 2 tablets (1,000 mg total) by mouth every8 (eight) hours as needed for pain. 12/02/2023 albuterol (PROVENTIL,VENTOLIN) 2.5 mg /3 mL (0.083 %) nebulizer solution Inhale 3 mL (2.5 mg total)by nebulization every 6 (six) hours as needed for wheezing. 75 mL 1 Other - as prescribed chlorthalidone (HYGROTON) 25 mg tablet Take 0.5 tablets (12.5 mg total) by mouth daily. 12/02/2023 cyclobenzaprine (FLEXERIL) 10 mg tablet TAKE ONE TABLET BY MOUTH ONCE DAILY IN THE EVENING 30 tablet 11 12/02/2023 DULoxetine (CYMBALTA) 30 mg capsule Take 1 capsule (30 mg total) by mouth once daily at bedtime. 12/02/2023 ELIQUIS 5 mg tablet Take 1 tablet (5 mg total) by mouth in the morning and 1 tablet (5 mg total) before bedtime. Indications: blood clot in a deep vein of the extremities. 12/02/2023 ertapenem 1,000 mg in sodium chloride 0.9 % 50 mL IVPB MINI-BAG Plus Infuse 1,000 mg into a venous catheter daily for 10 days. 1 each 0 12/02/2023 fluticasone propionate (FLONASE) 50 mcg/actuation nasal spray Other - as prescribed furosemide (LASIX) 20 mg tablet Take 1 tablet (20 mg total) by mouth daily. 12/02/2023 KLOR-CON 20 mEq packet Take 1 packet (20 mEq total) by mouth in the morning. Past Week lidocaine-prilocaine (EMLA) cream Apply 1 Application topically as needed for pain. Past Week lisinopriL (PRINIVIL,ZESTRIL) 20 mg tablet Take 1 tablet (20 mg total) by mouth in the morning. 12/02/2023 magnesium oxide 400 mg magnesium tablet Take 400 mg by mouth in the morning. 12/02/2023 metoprolol succinate XL (TOPROL XL) 100 mg 24 hr tablet Take 1 tablet (100 mg total) by mouth in the morning. 12/02/2023 [] oxyCODONE (ROXICODONE) 5 mg immediate release tablet Take 1 tablet (5 mg total) by mouth every 4 (four) hours as needed for pain for up to 5 days. Max Daily Amount: 30 mg 12 tablet 0 Past Week spironolactone (ALDACTONE) 25 mg tablet Take 1 tablet (25 mg total) by mouth in the morning. 12/02/2023 traZODone (DESYREL) 50 mg tablet TAKE ONE TABLET BY MOUTH ONCE DAILY AT NIGHT 90 tablet 1 12/02/2023 vancomycin 1,500 mg in sodium chloride 0.9 % 500 mL IVPB Infuse 1,500 mg into a venous catheter every 12 (twelve) hours for 10 days. 1 each 0 12/02/2023 capecitabine (XELODA) 500 mg chemo tablet Take by mouth after surgery (Patient not taking: Reportedon 10/16/2023) More than a month dexAMETHasone (DECADRON) 1 mg tablet TAKE ONE TABLET BY MOUTH TWICE A DAY ON DAYS 3-6 AFTER CHEMOTHERAPY FOR FATIGUE (Patient not taking: Reported on 10/16/2023) More than a month diazePAM (VALIUM) 5 mg tablet Take 1 tablet (5 mg total) by mouth every 6 (six) hours as needed formuscle spasms. (Patient not taking: Reported on 12/03/2023) 18 tablet 0 More than a month ferrous sulfate 325 (65 FE) mg tablet Take 1 tablet (325 mg total) by mouth in the morning. (Patient not taking: Reported on 07/30/2023) 90 tablet 2 More than a month gabapentin (NEURONTIN) 300 mg capsule TAKE ONE CAPSULE BY MOUTH TWICE A DAY FOR HOT FLASHES (Patient not taking: Reported on 10/28/2023) More than a month predniSONE (DELTASONE) 5 mg tablet Take 1 tablet (5 mg total) by mouth in the morning. (Patient nottaking: Reported on 10/16/2023) More than a month Current Facility-Administered Medications Medication Dose Route Frequency Provider Last Rate Last Admin acetaminophen (TYLENOL EXTRA STRENGTH) tablet 500 mg 500 mg oral Q6H PRN Chris Mcmullen PA-C 500 mg at 12/04/23 0313 albuterol (PROVENTIL,VENTOLIN) nebulizer solution 2.5 mg 2.5 mg nebulization Q6H PRN Chris Mcmullen PA-C apixaban (ELIQUIS) tablet 5 mg 5 mg oral BID Chris Mcmullen PA-C 5 mg at 12/04/23 0809 tvdkvse-coiobtqarhrcr-dunnyugb (EXCEDRIN MIGRAINE) 250-250-65 mg per tablet 2 tablet 2 tablet oral Q6H PRN Liliane Valle APRN-GARMENT STEAMER 2 tablet at 12/04/23 0809 calcium gluconate 3,000 mg in sodium chloride 0.9 % 100 mL IVPB 3,000 mg intravenous PRN Epifanio Henry MD calcium gluconate 4,000 mg in sodium chloride 0.9 % 250 mL IVPB 4,000 mg intravenous PRN Epifanio Henry MD calcium gluconate IVPB 2000 mg/100 mL (20 mg/mL premix) 2,000 mg intravenous PRN Epifanio Henry MD ciprofloxacin HCl (CIPRO) tablet 500 mg 500 mg oral Q24H RADHA Noguera MD 500 mg at 12/04/23 0809 clarithromycin (BIAXIN) tablet 500 mg 500 mg oral Q12H RADHA Noguera MD 500 mg at 12/04/23 0809 cyclobenzaprine (FLEXERIL) tablet 10 mg 10 mg oral Nightly PRN Chris Mcmullen PA-C 10 mg at 12/03/23 2326 dextrose (GLUTOSE) 40 % gel 15 g 15 g oral PRN Chris Mcmullen PA-C dextrose 50 % in water (D50W) 50% solution 25 mL 25 mL intravenous PRN Chris Mcmullen PA-C hydrALAZINE (APRESOLINE) injection 10 mg 10 mg intravenous Q4H PRN Epifanio Henry MD labetaloL (NORMODYNE,TRANDATE) injection 10 mg 10 mg intravenous Q4H PRN Epifanio Henry MD lactated ringers infusion 100 mL/hr intravenous Continuous Epifanio Henry MD 100 mL/hr at 12/04/23 0300 100 mL/hr at 12/04/23 0300 magnesium sulfate IVPB 2000 mg/50 mL in iso-osmotic water (40 mg/mL premix) 2,000 mg intravenous PRN Chris Mcmullen PA-C Stopped at 12/03/23 0817 metoprolol succinate XL (TOPROL XL) 24 hr tablet 100 mg 100 mg oral Daily Epifanio Henry MD 100 mg at 12/04/23 0809 ondansetron (PF) (ZOFRAN) injection 4 mg 4 mg intravenous Q4H PRN Chris Mcmullen PA-C 4 mg at 12/03/23 0625 oxyCODONE (ROXICODONE) immediate release tablet 5 mg 5 mg oral Q4H PRN Chris Mcmullen PA-C potassium chloride (KLOR-CON M 20) CR tablet 20-60 mEq 20-60 mEq oral PRN Epifanio Henry MD 20 mEq at 12/04/23 0544 Or potassium chloride (KAYCIEL) 20 mEq/15 mL solution 20-60 mEq 20-60 mEq oral PRN Epifanio Henry MD sennosides-docusate sodium (SENOKOT-S) 8.6-50 mg 1 tablet 1 tablet oral Q12H PRN Chris Mcmullen PA-C sodium phosphate 20 mmol in sodium chloride 0.9 % 250 mL IVPB 20 mmol intravenous PRN Epifanio Henry MD Or sodium phosphate 20 mmol in sodium chloride 0.9 % 100 mL IVPB 20 mmol intravenous PRN Epifanio Henry MD Or sod phos di, mono-K phos mono (K-PHOS NEUTRAL) 250 mg tablet 2 tablet 2 tablet oral PRN Epifanio Henry MD sodium chloride 0.9 % flush 3 mL 3 mL intravenous PRN Chris Mcmullen PA-C 3 mL at 12/03/23 0637 sodium chloride 0.9 % flush 3 mL 3 mL intravenous Q12H RADHA Chris Mcmullen PA-C 3 mL at 12/04/23 0810 traZODone (DESYREL) tablet 50 mg 50 mg oral Nightly PRN Chris Mcmullen PA-C Nutrition Focused Physical Findings 12/03 Renal ultrasound is scheduled for today. No BM noted since admission - PRN bowel meds noted. Skin (per nursing flow sheets): Skin Color: [place]; Pale (12/04/23804) Skin Temp: Warm; Dry (12/04/23804) Skin Integrity: Intact (12/02/232334) Wound (per nursing flow sheets): Wound 11/27/23 Incision Breast Left-Site Assessment: Clean; Dry; Intact (12/04/23804) Wound 10/28/23 Incision Breast Right-Site Assessment: Clean; Dry; Intact (12/03/231925) Gastrointestinal (per nursing flow sheets): Abdomen Assessment: Soft; Rounded; Nondistended (12/04/23804) RUQ Bowel Sounds: Present (12/04/23804) LUQ Bowel Sounds: Present (12/04/23804) RLQ Bowel Sounds: Present (12/04/23804) LLQ Bowel Sounds: Present (12/04/23804) GI Symptoms: Loss of appetite (12/04/23804) Relieved by: Antiemetic (12/03/23 0636) Edema (per nursing flow sheets): RLE Edema: +1 (12/04/23804) LLE Edema: +1 (12/04/23804) Intake/ Output Last 24 hrs: Intake/Output Summary (Last 24 hours) at 12/04/2023 1106 Last data filed at 12/04/2023 0957 Gross per 24 hour Intake 3832.34 ml Output 2650 ml Net 1182.34 ml Food/Nutrition Related History: Diet History: Patient states that she has had a poor po intake x 1 week. States she had some N/V this past Thursday & , but is feeling okay now. Her stomach became upset today after eating FF and drinking a milk shake. She says that she usually eats 2 meals a day with a snack. Not to fond of breakfast. Does drink protein shakes on occasion. Allergies: Allergies Allergen Reactions Meperidine Facial Swelling Daptomycin Flushing Adhesive Rash Diet/ Nutrition Order Review: Dietary Orders (From admission, onward) Start Ordered 12/02/232314 Adult diet Regular Texture; Cardiac Diet effective now Question Answer Comment Diet Type: Regular Texture Other Modifiers: Cardiac 12/02/23 2316 Diet Intakes: Nothing recorded in Flowsheets. Nursing reporting poor PO intake Oral Supplemental Intake/ Acceptance: None Noted. Anthropometrics: Ht Readings from Last 1 Encounters: 12/03/23 180.3 cm (5' 11 ) Wt Readings from Last 20 Encounters: 12/04/23 96.9 kg (213 lb 10 oz) 12/02/23 95.2 kg (209 lb 14.1 oz) 11/28/23 95.2 kg (209 lb 14.1 oz) 10/28/23 100.4 kg (221 lb 5.5 oz) 10/16/23 102.6 kg (226 lb 3.1 oz) 09/04/23 95.7 kg (211 lb) 08/20/23 105.3 kg (232 lb 3.2 oz) 07/30/23 104.9 kg (231 lb 3.2 oz) 05/06/23 98.9 kg (218 lb) 04/28/23 98.9 kg (218 lb) 04/20/23 99.3 kg (219 lb) 03/07/22 99.4 kg (219 lb 1.6 oz) 01/31/22 99.8 kg (220 lb 1.6 oz) 11/27/21 97 kg (213 lb 12.8 oz) 04/13/21 96.2 kg (212 lb) Last 3 Weight Readings 12/02/23 2142 12/03/23 0006 12/04/23 0544 Weight: 94.3 kg (208 lb) 97.3 kg (214 lb 8.1 oz) 96.9 kg (213 lb 10 oz) Admit Weight: 97.3 kg (Standing Scale, 12/02) Usual Body Weight: see above [place] Body Weight: 70.4 kg Percent [place] Body Weight: 138% Weight Changes: Weight fluctuations noted. With weight loss of 18 lbs x 5 months, 8% Body Mass Index: Body mass index is 29.79 kg/m . BMI Category: Pre-obese (25.00- 29.99) Comparative Standards: Estimated Energy Needs: 3862-1519 kcals daily. Method and weight used: 25-30 kcal/kg IBW Estimated Protein Needs: 84-141 grams daily. Method and weight used: 1.2-2 g protein/kg IBW Estimated Fluid Needs: 3820-5860 ml daily. Method weight used: 25-30 ml/kg IBW Comments: general needs for BMI Malnutrition Status: Malnutrition Present: No NUTRITION DIAGNOSIS: Intake Diagnosis: Inadequate energy intake (NI 1.2) related to N/V in the context of post-operativeinfection as evidenced by decreased appetite x 1 week with weight loss of 8% over 5 month time period.. NUTRITION INTERVENTIONS: Meals & snacks: Provided diet as ordered. Encourage PO intake Supplements (medical food, vitamin or mineral): Ensure clear BID - This will provide 240 kcal &8g protein per serving Coordination of nutrition care: spoke with patient and her significant other. GOAL(S): Tolerates oral diet NUTRITION MONITORING AND EVALUATION: weights, PO intake, lab trends, supplement acceptance, plan ofcare. Jessenia Key RD,LD Clinical Dietitian Office: [phone] * Epifanio Henry MD - 12/04/2023 9:41 AM EDT Images from the original note were not included. Nephrology Daily Progress Note INTERVAL HISTORY: Denies any shortness breath denies any chest pain. Denies abdominal pain. Nausea and vomiting have improved. VITAL SIGNS TREND: Vitals: 12/03/23 2324 12/04/23 0309 12/04/23 0544 12/04/23 0805 BP: 151/80 136/74 133/83 Pulse: 85 90 78 Resp: 14 20 19 Temp: 37.4 C (99.3 F) 37.7 C (99.9 F) 37.1 C (98.7 F) 36.9 C (98.5 F) TempSrc: Oral Oral Oral Oral SpO2: 99% 99% 97% Weight: 96.9 kg (213 lb 10 oz) Height: INTAKE/OUTPUT: Intake/Output Summary (Last 24 hours) at 12/04/2023 0941 Last data filed at 12/04/2023 0544 Gross per 24 hour Intake 3232.34 ml Output 2100 ml Net 1132.34 ml No intake/output data recorded. WEIGHT: Last 3 Weight Readings 12/02/23 2142 12/03/23 0006 12/04/23 0544 Weight: 94.3 kg (208 lb) 97.3 kg (214 lb 8.1 oz) 96.9 kg (213 lb 10 oz) PHYSICAL EXAM: Blood pressure 133/83, pulse 78, temperature 36.9 C (98.5 F), temperature source Oral, resp. rate 19, height 180.3 cm (5' 11 ), weight 96.9 kg (213 lb 10 oz), SpO2 97%. Temp: [36.7 C (98.1 F)-37.7 C (99.9 F)] 36.9 C (98.5 F) Pulse: [75-90] 78 Resp: [14-20] 19 BP: (133-151)/(74-94) 133/83 SpO2: [96 %-99 %] 97 % O2 Device: None (Room air) General appearance: alert in no apparent distress. HEENT: no JVD, no lymphadenopathy. Heart exam: normal S1-S2 Lungs: clear to auscultation bilaterally Abdomen: soft, no tenderness, no guarding, positive bowel sounds Extremities: no edema Vascular: adequate pulses and no carotid bruits. Musculoskeletal: no joint tenderness or swelling. LABORATORY EVALUATION: Results from last 7 days Lab Units 12/04/23 0305 12/03/23 1220 12/03/23 0350 12/02/23 2213 11/30/23 0930 SODIUM mmol/L 138 -- 137 133* 142 POTASSIUM mmol/L 3.4* 3.6 3.1* 3.2* 3.3* CHLORIDE mmol/L 107 -- 104 99 105 CO2 mmol/L 25 -- 25 25 29 ANION GAP mmol/L 6 -- 8 9 8 BUN mg/dL 24* -- 25* 27* 9 CREATININE mg/dL 2.81* -- 2.49* 2.52* 0.62 CALCIUM mg/dL 9.2 -- 9.2 9.8 9.6 MAGNESIUM mg/dL 1.9 2.2 1.5* -- -- PHOSPHORUS mg/dL 3.9 -- -- -- -- CALCIUM, IONIZED mg/dL 5.0 -- -- -- -- Results from last 7 days Lab Units 12/04/23 03012/03/23 1737 12/03/23 1628 12/03/23 0350 12/02/23 2305 12/02/232212 TOTAL PROTEIN g/dL 5.4* -- 5.4* 5.5* -- 6.4 ALBUMIN g/dL 3.2 -- PENDING 3.3 -- 3.8 AST U/L 15 -- -- 19 -- 24 ALT U/L 9 -- -- 10 -- 12 TOTAL BILIRUBIN mg/dL 0.5 -- -- 0.6 -- 0.6 BILIRUBIN, URINE -- Negative -- -- Negative -- ALK PHOS U/L 56 -- -- 60 -- 69 Results from last 7 days Lab Units 12/04/2330412/03/2334912/02/23221211/30/23 0930 WBC X10E9/L 4.3 5.8 7.8 6.5 HEMOGLOBIN g/dL 7.3* 8.0* 9.1* 8.8* HEMATOCRIT % 21.2* 22.9* 26.0* 25.2* PLATELETS X10E9/L 201 233 279 294 Lab Results Component Value Date IRON 43 (L) 01/31/2022 TIBC 519 (H) 01/31/2022 FERRITIN 8 (L) 01/31/2022 IRONSAT 8 (L) 01/31/2022 Results from last 7 days Lab Units 12/04/2330412/03/23 0350 12/02/23221211/30/23 0930 GLUCOSE mg/dL 91 103* 106* 84 Results from last 7 days Lab Units 12/03/23162711/28/23 1551 CK TOTAL U/L 52 45 CURRENT MEDICATIONS: apixaban, 5 mg, oral, BID ciprofloxacin HCl, 500 mg, oral, Q24H RADHA clarithromycin, 500 mg, oral, Q12H RADHA metoprolol succinate XL, 100 mg, oral, Daily sodium chloride, 3 mL, intravenous, Q12H [facility] PROBLEM LIST: Acute kidney injury which could related to Acute Tubular Necrosis secondary to sepsis versus vancomycin nephrotoxicity versus volume depletion secondary to poor p.o. intake in the setting of ongoing intake of chlorthalidone, Lasix, lisinopril and spironolactone. From December of 2023 Renal ultrasound revealed right kidney of 11.4 cm left of 14.7 cm with no evidence of hydronephrosis, CPK was 52, serum protein electrophoresis is pending, JUSTIN anti MPO anti PR3 and anti-GBM were negative, C3 was 158 and C4 was 38, urine dipstick was negative for blood or protein, fractional excretion of sodium was 1.8% and random urine protein to creatinine ratio was 0.3 grams/gram. Left breast cellulitis with infected seroma status post removal of left breast tortilla maker on November 27, 2023 Hypertension Edema Depression/anxiety DVT Right-sided breast cancer status post bilateral mastectomy with a lymph node dissection with subsequent bilateral breast reconstruction on October 28, 2023 MediPort placement Bilateral knee arthroscopy Tonsillectomy and adenoidectomy IMPRESSION: 1. Acute kidney injury which is likely related to Acute Tubular Necrosis in the setting of sepsis versus volume depletion secondary to decreased p.o. intake in the setting of ongoing intake of chlorthalidone, Lasix, lisinopril as well as spironolactone as well as possibly vancomycin nephrotoxicity.Creatinine is up overnight. Urine output is adequate 2. Hypertension: With acceptable but suboptimal blood pressure on Toprol XL only. On IV hydralazinep.r.n.. 3. Left breast and chest wall cellulitis: On Cipro and clarithromycin per Infectious Disease 4. Hypokalemia: On lactated Ringer's. Continue to follow potassium and replace per sliding scale asneeded 5. Hypomagnesemia: Continue to follow magnesium and replace per sliding scale as needed PLAN: 1. Continue IV fluids. 2. Reassess blood pressure in a.m. 3. Reassess renal function in a.m. 4. Continue to follow electrolytes and replace per sliding scale as needed Discussed with her nurse in person Epifanio Henry M.D. For questions please call: Answering Service at [phone] Or Office at [phone] This note was created with the assistance of a speech-recognition program. Although the intention is to generate a document that actually reflects the content of the visit, no guarantees can be provided that every mistake has been identified and corrected by editing. * Shereen Smallwood PA-C - 12/04/2023 8:59 AM EDT Images from the original note were not included. [facility] Plastic & Reconstructive Surgery [facility] [address] [place] [address] Office Jhon Rosado MD, PhD Marisela Cuevas, FLUOROSCOPE OPERATOR-GARMENT STEAMER Shereen Smallwood PA-C Plastic Surgery Inpatient Progress Note Subjective: Patient is doing well this morning. She states that she was concerned however because yesterday when she went to get in the shower, her left breast be somewhat red. She denies any increased tenderness however. Objective: Patient is awake, alert and oriented. She is in no acute distress at present. Vitals: 12/04/23 0805 BP: 133/83 Pulse: 78 Resp: 19 Temp: 36.9 C (98.5 F) SpO2: 97% General: No acute distress, well appearing, nontoxic in appearance HEENT: Normocephalic, atraumatic, CN 2-12 grossly intact, V1-V3 grossly intact, EOMI Chest: Regular rate and rhythm Breasts: No erythema, no calor appreciated within the left breast today. No palpable fluid collection. No concerns for infection at present. Right breast is healed. Bandage removed from previous leftJP site. This is also dry without active drainage, no concerns for infection. Abdomen: Soft, nontender, nondistended, low transverse incision is healing appropriately with no open wounds or signs of acute infection, umbilicus is viable, abdomen is flat with no hematoma or other fluid collection, bilateral abdominal drains are secure with thin serosanguinous fluid in each grenade Extremities: Warm and well perfused, neurovascularly intact, SCDs on and running Laboratory: Lab Results Component Value Date WBC 4.3 12/04/2023 HGB 7.3 (L) 12/04/2023 HCT 21.2 (L) 12/04/2023 MCV 90 12/04/2023 PLT 201 12/04/2023 Lab Results Component Value Date GLU 91 12/04/2023 CALCIUM 9.2 12/04/2023 K 3.4 (L) 12/04/2023 CO2 25 12/04/2023 BUN 24 (H) 12/04/2023 CREATININE 2.81 (H) 12/04/2023 Microbiology Results Procedure Component Value Units Date/Time Urine culture [[id number]] Collected: 12/02/23 2305 Specimen: Urine, Clean Catch Midstream Updated: 12/04/23 0709 Culture NO GROWTH AT <1000 CFU/mL Blood culture [[id number]] Collected: 12/02/23 223 Specimen: Blood, Line Draw Updated: 12/04/23 0815 Specimen Notes SUBOPTIMAL VOLUME OF BLOOD COLLECTED, RESULTS MAY BE AFFECTED. Culture NO GROWTH 1 DAY Blood culture [[id number]] Collected: 12/02/23 2213 Specimen: Blood, Line Draw Updated: 12/04/23 0815 Specimen Notes SUBOPTIMAL VOLUME OF BLOOD COLLECTED, RESULTS MAY BE AFFECTED. Culture NO GROWTH 1 DAY Anaerobic culture [[id number]] Collected: 11/27/23 1548 Specimen: Body Fluid from Breast, Left Updated: 12/02/23 0851 Specimen Notes SPECIMEN A Culture NO GROWTH 5 DAYS Fungal culture includes fungal smear [[id number]] Collected: 11/27/23 1548 Specimen: Body Fluid from Breast, Left Updated: 11/28/23 0702 Specimen Notes SPECIMEN A Fungal smear -- NO FUNGAL ELEMENTS SEEN ON DIRECT SMEAR Culture PENDING AFB culture concentrated includes AFB smear [[id number]] (Abnormal) Collected: 11/27/23 1548 Specimen: Body Fluid from Breast, Left Updated: 12/01/23 1056 Specimen Notes SPECIMEN A AFB Smear NO ACID FAST BACILLI (CONCENTRATED SMEAR) Culture ACID FAST BACILLI ISOLATED Aspirate culture includes gram stain [[id number]] (Abnormal) Collected: 11/27/23 1548 Specimen: Aspirate Atr Updated: 12/01/23 1544 Specimen Notes SPECIMEN A Gram Stain Result >25 WHITE BLOOD CELLS/LPF 0 SQUAMOUS EPITHELIAL CELLS/LPF NO ORGANISMS SEEN Culture MODERATE ACID FAST BACILLI ISOLATED REPORT UPDATED GROWTH OBSERVED AT 48 HOURS Assessment: Ike Jones is a 53 y.o. female one week: Status post I&D left breast cellulitis with removal of tissue tortilla maker Plan: - Pain well controlled with Tylenol, oxycodone, Toradol, -nephrology following for MIRNA secondary to vancomycin versus sepsis versus volume depletion. Creatinine slightly worse today however discussed with patient this is not typically an instant reversal. Renal ultrasound is scheduled for today. Several labs ordered by nephrology. -previous EKG yesterday was concerning for ST-elevation however this was felt to be due to motion artifact, this was repeated and normal. - previous cultures positive for moderate acid-fast bacilli. Patient was initially referred to [facility] however this is out of network for her insurance, referrals were sent to [facility], [facility] and [facility]. [facility] is out of network, however [facility] could not get her in until December or January. Currently waiting to hear back from [facility]. - patient transitioned to oral clindamycin and Cipro for antibiotic coverage and MIRNA secondary to vancomycin. All questions were answered to her satisfaction. She was counseled regarding my impressions, instructions for management and the importance of compliance with treatment. INÉS PAYNE MD, PhD [facility] Plastic & Reconstructive Surgery Shereen Smallwood PA-C 12/04/23 0906 * Shereen Smallwood PA-C - 12/03/2023 8:58 AM EDT Images from the original note were not included. [facility] Plastic & Reconstructive Surgery [facility] [address] [facility] [address] [place] [id number] Office Jhon Rosado MD, PhD Marisela Cuevas APRN-ESPERANZA Smallwood PA-C Plastic Surgery Inpatient Progress Note Subjective: Patient admitted yesterday for nausea vomiting, creatinine is 2.49. Patient is thought to be in AKIsecondary to vancomycin. Objective: Patient is awake, alert and oriented. She is in no acute distress at present. She denies any pain in her left breast. Vitals: 12/03/23 0700 BP: 135/91 Pulse: 97 Resp: 24 Temp: 37. C (98.6 F) SpO2: 97% General: No acute distress, well appearing, nontoxic in appearance HEENT: Normocephalic, atraumatic, CN 2-12 grossly intact, V1-V3 grossly intact, EOMI Chest: Regular rate and rhythm Breasts: bilateral breast incisions are healing well. No erythema, no calor. Breasts are soft on palpation. No active signs of infection Laboratory: Lab Results Component Value Date WBC 5.8 12/03/2023 HGB 8.0 (L) 12/03/2023 HCT 22.9 (L) 12/03/2023 MCV 90 12/03/2023 PLT 233 12/03/2023 Lab Results Component Value Date GLU 103 (H) 12/03/2023 CALCIUM 9.2 12/03/2023 K 3.1 (L) 12/03/2023 CO2 25 12/03/2023 BUN 25 (H) 12/03/2023 CREATININE 2.49 (H) 12/03/2023 Microbiology Results Procedure Component Value Units Date/Time Urine culture [[id number]] Collected: 12/02/23 2341 Specimen: Urine Updated: 12/03/23 0829 Blood culture [[id number]] Collected: 12/02/232235 Specimen: Blood, Peripheral Draw Updated: 12/02/232235 Blood culture [[id number]] Collected: 12/02/232235 Specimen: Blood, Peripheral Draw Updated: 12/02/232235 Anaerobic culture [[id number]] Collected: 11/27/23 1548 Specimen: Body Fluid from Breast, Left Updated: 12/02/23 0851 Specimen Notes SPECIMEN A Culture NO GROWTH 5 DAYS Fungal culture includes fungal smear [[id number]] Collected: 11/27/23 1548 Specimen: Body Fluid from Breast, Left Updated: 11/28/23 0702 Specimen Notes SPECIMEN A Fungal smear -- NO FUNGAL ELEMENTS SEEN ON DIRECT SMEAR Culture PENDING AFB culture concentrated includes AFB smear [[id number]] (Abnormal) Collected: 11/27/23 1548 Specimen: Body Fluid from Breast, Left Updated: 12/01/23 1056 Specimen Notes SPECIMEN A AFB Smear NO ACID FAST BACILLI (CONCENTRATED SMEAR) Culture ACID FAST BACILLI ISOLATED Aspirate culture includes gram stain [[id number]] (Abnormal) Collected: 11/27/23 1548 Specimen: Aspirate Atr Updated: 12/01/23 1544 Specimen Notes SPECIMEN A Gram Stain Result >25 WHITE BLOOD CELLS/LPF 0 SQUAMOUS EPITHELIAL CELLS/LPF NO ORGANISMS SEEN Culture MODERATE ACID FAST BACILLI ISOLATED REPORT UPDATED GROWTH OBSERVED AT 48 HOURS Mrsa Pcr nasal swab [[id number]] Collected: 11/27/23 0020 Specimen: Nasal Updated: 11/27/23 0957 Mrsa PCR Negative Blood culture [[id number]] Collected: 11/26/23 1715 Specimen: Blood Updated: 12/01/232007 Culture NO GROWTH 5 DAYS Assessment: Ike Jones is a 53 y.o. female Post-Operative Day: 8 - s/p irrigation and debridement with removal of left breast tissue tortilla maker Plan: - discussed with patient that from a plastic surgery standpoint, she appears to be healing appropriately. - patient with positive id from her office aspirate as well as intraoperative cultures. Infectious Disease was reaching out for referral to [facility]. Patient lives in [place], wondering if [facility] would be an option. - infectious disease we will continue to follow does not feel that this is tuberculosis related as this is a fast growing culture. -antibiotic regimen changed. Vancomycin discontinued, patient transition to oral Cipro and clarithromycin. - we will continue to follow along closely All questions were answered to her satisfaction. She was counseled regarding my impressions, instructions for management and the importance of compliance with treatment. INÉS PAYNE MD, PhD [facility] Shereen Smallwood PA-C 12/04/23 0858 * Nathaniel Narvaez RP - 12/02/2023 11:19 PM EDT Pharmacy was consulted to dose vancomycin for patient in the emergency department. From previous notes patient has been on vancomycin and had an elevated trough of 33 the morning of 12/01 and the infectious disease provider indicated patient should hold vancomycin until another level can be drawn on 12/02. Patient also has an elevated serum creatinine from baseline (0.62 on 11/29 to 2.52 on 12/01). Per our consult to dose vancomycin I ordered another vancomycin level which got discontinued. Will sign off on pharmacy to dose vancomycin consult, if patient is admitted and it is determined patient still needs therapy despite the elevated serum creatinine please re-consult. documented in this [facility]10-09-2024 Miscellaneous Notes* Telephone Encounter - Nabila Mora CMA - 12/09/2023 3:43 PM EDT IKE JONES (Ross: [id number]) [facility] [employer] has not yet replied to your PA request. You may close this dialog, return to your dashboard, and perform other tasks. To check for an update later, open this request again from your dashboard. If [employer] has not replied to your request within 24 hours please contact [email or web address] at (TTY ) PA form to be scanned into chart. [facility] encounter Note* Telephone Encounter - Nabila Mora CMA - 12/09/2023 3:43 PM EDT IKE JONES (Ross: [id number]) [employer] has not yet replied to your PA request. You may close this dialog, return to your dashboard, and perform other tasks. To check for an update later, open this request again from your dashboard. If [employer] has not replied to your request within 24 hours please contact [email or web address] at (TTY ) PA form to be scanned into chart. [facility]10-[facility] Plan of care note* Plan of Care - Kahlil Gregorio RN - 12/09/2023 3:21 PM EDT Patient remains free of falls and injuries. Patient also continues to deny any pain. [facility]10-09-2024 Miscellaneous Notes* Plan of Care - Kahlil Gregorio RN - 12/09/2023 3:21 PM EDT Patient remains free of falls and injuries. Patient also continues to deny any pain. * Plan of Care - Aliza Benito RN - 12/09/2023 4:18 AM EDT Problem: Low Risk Fall Score Description: Pickens Fall Score of 0 - 24 or indicated by [facility] Assessment Goal: Patient should be free from fall Description: Interventions: 1. [place] to environment 2. Hourly rounds addressing the 4 P's (Pain, Positioning, Possessions, Potty) 3. Clear area of hazards (spills, clutter, electrical cords, unnecessary equipment) 4. Place equipment (bed & TV controls, call light, phone, urinal) within reach 5. Encourage patient to wear glasses and hearing aides as appropriate 6. Maintain bed in lowest position 7. Lock wheels on bed/wheelchair 8. Provide adequate lighting, including night light 9. Assess need for additional bedding, food/fluids, pain med's prior to sleep/routinely 10. Provide gripper slippers or personal non-skid footwear 11. Teach patient and patient sales and merchandising representative to maintain environment for safety and engage in all aspects of fall prevention program Outcome: Progressing Note: Evaluation of progress towards goal: Pt remains free from falls. Will continue to provide a safe environment. Problem: Pain Goal: Patient goal is pain score less than 4, able to rest, and participant in treatment plan as appropriate Description: INTERVENTIONS: 1. Encourage patient or legal sales and merchandising representative to report early pain and ask for pain medicine when needed 2. Assess pain using appropriate pain scale and include the scale used when documenting 3. Administer analgesics based on type and severity of pain and evaluate response within appropriate time frame 4. Implement non-pharmacological measures as appropriate and evaluate response 5. Consider cultural and social influences on pain and pain management 6. Notify LIP if interventions ineffective or patient reports new pain 7. Monitor vital signs including pulse ox, end-tidal CO2 based on pain intervention 8. Reassess pain per policy 9. Teach patient or legal sales and merchandising representative interventions for comforting Outcome: Progressing Note: Evaluation of progress towards goal: patient denies pain at this time Problem: Safety Goal: Patient will be injury free during hospitalization Description: INTERVENTIONS: 1. Assess patient's risk for falls and implement fall prevention plan of care per policy 2. Provide and maintain a safe environment 3. Proper use of double Identifiers 4. Medication administration using the 5 rights 5. Hand hygiene 6. Specimens are labeled at the bedside 7. Instruct patient/ patient sales and merchandising representative about use of safety devices 8. Include patient/ patient sales and merchandising representative in decisions related to safety Outcome: Progressing Note: Evaluation of progress towards goal: pt has been free from injury during this shift Problem: Infection Goal: Absence of infection during hospitalization Description: Interventions: 1. Assess and monitor for signs and symptoms of infection 2. Monitor lab/diagnostic results 3. Monitor all insertion sites i.e., indwelling lines, tubes and drains 4. Monitor endotracheal (as able) and nasal secretions for changes in amount and color 5. Administer medications as ordered 6. Instruct and encourage patient and family to use good hand hygiene technique 7. Identify and instruct patient/patient sales and merchandising representative in use of appropriate isolation precautionsfor identified infection/symptoms 8. Provide and discuss with patient/patient sales and merchandising representative on educational MDRO sheet 9. Encourage and monitor nutritional status daily and consult surveyor geophysical prospecting if indicated 10. Implement neutropenic guidelines as needed 11. Review exposure to history of communicable disease and recent travel history on admission 12. Encourage annual influenza vaccine 13. Encourage pneumonia vaccine Outcome: Progressing Note: Evaluation of progress towards goal: pt remains afebrile, currently on antibiotics Problem: Knowledge Deficit Goal: Patient/patient sales and merchandising representative demonstrates understanding of disease process, treatment plan,medications, and discharge instructions Description: INTERVENTIONS 1. Complete learning assessment and assess knowledge base 2. Provide teaching at level of understanding 3. Provide teaching via preferred learning method(s) Outcome: Progressing Note: Evaluation of progress towards goal: patient understands plan of care Problem: Discharge Planning Goal: Discharge to post-acute care, other facility, or home with appropriate resources Description: Patient's goal is: home INTERVENTIONS 1. Conduct assessment to determine patient/family and health care team treatment goals, and need for post-acute services based on payer coverage, community resources, and patient preferences, and barriers to discharge 2. Coordinate with Social work, Care Navigation, and Utilization Review to arrange appropriate level of services according to patient's needs based on patient preference and payer coverage in collaboration with the physician and health care team 3. Address psychosocial, clinical, and financial barriers to discharge as identified in assessment in conjunction with the patient/family and health care team 4. Consult appropriate ancillary services (i.e.. PT/OT/ST, etc) as needed 5. Communicate with and update the patient/family, physician, and health care team regarding progress on the discharge plan 6. Identify discharge learning needs (meds, wound care, etc). 7. Arrange for needed discharge transportation as appropriate Outcome: Progressing Note: Evaluation of progress towards goal: patient will be discharged home when medically stable Problem: Inadequate Airway Clearance Goal: Patient will maintain patent airway Description: INTERVENTIONS 1. Assess and monitor breath sounds, cough and sputum (if present) 2. Monitor respiratory rate and oxygen saturation 3. Collaborate with respiratory therapy to administer medication, oxygen, and suitable airway clearance techniques as ordered 4. Position patient for maximum ventilatory efficiency; elevate head of bed at least 30 degrees if appropriate 5. Provide adequate fluid intake to liquify secretions if appropriate 6. Suction secretions as indicated to maintain patent airway 7. Instruct patient to turn, cough, and deep breathe; encourage incentive spirometer if indicated Outcome: Progressing Note: Evaluation of progress towards goal: patient maintained patent airway during shift Problem: Inadequate Breathing Pattern Goal: Patient will achieve/maintain normal respiratory rate/effort Description: Patient's goal is: INTERVENTIONS 1. Assess and monitor respiratory rate, effort, breathing pattern, and oxygenation 2. Monitor patient for restlessness, anxiety, air hunger 3. Assess physical activity tolerance 4. Assess tobacco history; ask, advise, and refer as appropriate 5. Collaborate with interdisciplinary team and initiate plans/interventions as needed Outcome: Progressing Note: Evaluation of progress towards goal: pt respiratory rate is 16 Problem: Anxiety Goal: Anxiety is at manageable level Description: Patient's goal is: INTERVENTIONS 1. Assess and monitor patient's anxiety level 2. Monitor for signs and symptoms of anxiety both physical and emotional (heart palpitations, chestpain, shortness of breath, headaches, nausea, feeling jumpy, restlessness, irritable, apprehensive) 3. Reorient/orient patient to unit/surroundings 4. Explain treatment plan 5. Explain tests/procedures prior to initiation 6. Encourage participation in care 7. Encourage verbalization of concerns/fears 8. Assess coping mechanisms 9. Assist in developing anxiety-reducing skills 10. Administer complimentary therapies 11. Manage patient's environment 12. Limit or eliminate stimulants such as caffeine and nicotine 13. Collaborate with ancillary departments 14. Include patient/patient sales and merchandising representative in decisions related to anxiety Outcome: Progressing Note: Evaluation of progress towards goal: patient anxiety has been managed during shift Problem: Inadequate Coping Goal: Demonstrates and verbalizes ability to cope effectively Description: Patient's goal is: INTERVENTIONS 1. Patient is able to verbalize feelings related to emotional state 2. Encourage verbalization of feelings, perceptions, fears, stressors, loss of loved ones 3. Encourage verbalization of problems out of their control 4. Encourage participation in care and self management 5. Inform patient of all treatment/care prior to providing care 6. Collaborate with pastoral/spiritual care, high school social studies tutor, mental health counselor as needed. 7. Instruct patient on diversional activities such as physical activity, distraction, and deep breathing exercises to assist with coping 8. Involve patient's sales and merchandising representative in care Outcome: Progressing Note: Evaluation of progress towards goal: Patient is cooperative and social. Support and encouragement provided. Patient discusses issues openly with staff and identifies stressors, develops goals and coping skills. Problem: Metabolic/Fluid and Electrolytes - Adult Goal: Electrolytes maintained within normal limits Description: INTERVENTIONS 1. Monitor for signs and symptoms of hypovolemia (tachycardia, rapid breathing, decreased urine output, postural hypotension, sunken fontanel) 2. Monitor for signs and symptoms of hypervolemia (strong rapid pulse, rapid breathing, crackles heard in lung clark, edema, decreased urine output, sudden weight gain, distended neck veins in olderchildren, enlarged liver and spleen) 1. Monitor intake and output 2. Monitor pt's weight 1. Monitor labs and assess patient for signs and symptoms of electrolyte imbalances 2. Administer electrolyte replacement as ordered 3. Monitor response to electrolyte replacements, including repeat lab results as appropriate 4. Fluid restriction or hydration as ordered 5. Instruct patient/ legal sales and merchandising representative on nutrition/diet; fluid/hydration restrictions as appropriate Outcome: Progressing Note: Evaluation of progress towards goal: electrolytes are continuing to be monitored and replacedper protocol * Plan of Care - Claudia Masterson LADIES UNDERWEAR OPERATOR - 12/08/2023 3:27 PM EDT Problem: Low Risk Fall Score Description: Pickens Fall Score of 0 - 24 or indicated by [facility] Assessment Goal: Patient should be free from fall Description: Interventions: 1. [place] to environment 2. Hourly rounds addressing the 4 P's (Pain, Positioning, Possessions, Potty) 3. Clear area of hazards (spills, clutter, electrical cords, unnecessary equipment) 4. Place equipment (bed & TV controls, call light, phone, urinal) within reach 5. Encourage patient to wear glasses and hearing aides as appropriate 6. Maintain bed in lowest position 7. Lock wheels on bed/wheelchair 8. Provide adequate lighting, including night light 9. Assess need for additional bedding, food/fluids, pain med's prior to sleep/routinely 10. Provide gripper slippers or personal non-skid footwear 11. Teach patient and patient sales and merchandising representative to maintain environment for safety and engage in all aspects of fall prevention program Outcome: Progressing Note: Evaluation of progress towards goal: pt remains free from falls at this time. Problem: Pain Goal: Patient goal is pain score less than 4, able to rest, and participant in treatment plan as appropriate Description: INTERVENTIONS: 1. Encourage patient or legal sales and merchandising representative to report early pain and ask for pain medicine when needed 2. Assess pain using appropriate pain scale and include the scale used when documenting 3. Administer analgesics based on type and severity of pain and evaluate response within appropriate time frame 4. Implement non-pharmacological measures as appropriate and evaluate response 5. Consider cultural and social influences on pain and pain management 6. Notify LIP if interventions ineffective or patient reports new pain 7. Monitor vital signs including pulse ox, end-tidal CO2 based on pain intervention 8. Reassess pain per policy 9. Teach patient or legal sales and merchandising representative interventions for comforting Outcome: Progressing Note: Evaluation of progress towards goal: pt denies pain at this time. Problem: Safety Goal: Patient will be injury free during hospitalization Description: INTERVENTIONS: 1. Assess patient's risk for falls and implement fall prevention plan of care per policy 2. Provide and maintain a safe environment 3. Proper use of double Identifiers 4. Medication administration using the 5 rights 5. Hand hygiene 6. Specimens are labeled at the bedside 7. Instruct patient/ patient sales and merchandising representative about use of safety devices 8. Include patient/ patient sales and merchandising representative in decisions related to safety Outcome: Progressing Note: Evaluation of progress towards goal: pt remains free from injury at this time. Problem: Infection Goal: Absence of infection during hospitalization Description: Interventions: 1. Assess and monitor for signs and symptoms of infection 2. Monitor lab/diagnostic results 3. Monitor all insertion sites i.e., indwelling lines, tubes and drains 4. Monitor endotracheal (as able) and nasal secretions for changes in amount and color 5. Administer medications as ordered 6. Instruct and encourage patient and family to use good hand hygiene technique 7. Identify and instruct patient/patient sales and merchandising representative in use of appropriate isolation precautionsfor identified infection/symptoms 8. Provide and discuss with patient/patient sales and merchandising representative on educational MDRO sheet 9. Encourage and monitor nutritional status daily and consult surveyor geophysical prospecting if indicated 10. Implement neutropenic guidelines as needed 11. Review exposure to history of communicable disease and recent travel history on admission 12. Encourage annual influenza vaccine 13. Encourage pneumonia vaccine Outcome: Progressing Note: Evaluation of progress towards goal: pt remains afebrile at this time. Problem: Knowledge Deficit Goal: Patient/patient sales and merchandising representative demonstrates understanding of disease process, treatment plan,medications, and discharge instructions Description: INTERVENTIONS 1. Complete learning assessment and assess knowledge base 2. Provide teaching at level of understanding 3. Provide teaching via preferred learning method(s) Outcome: Progressing Note: Evaluation of progress towards goal: daily plan of care discussed with pt and all questions answered at this time. Problem: Discharge Planning Goal: Discharge to post-acute care, other facility, or home with appropriate resources Description: Patient's goal is: home INTERVENTIONS 1. Conduct assessment to determine patient/family and health care team treatment goals, and need for post-acute services based on payer coverage, community resources, and patient preferences, and barriers to discharge 2. Coordinate with Social work, Care Navigation, and Utilization Review to arrange appropriate level of services according to patient's needs based on patient preference and payer coverage in collaboration with the physician and health care team 3. Address psychosocial, clinical, and financial barriers to discharge as identified in assessment in conjunction with the patient/family and health care team 4. Consult appropriate ancillary services (i.e.. PT/OT/ST, etc) as needed 5. Communicate with and update the patient/family, physician, and health care team regarding progress on the discharge plan 6. Identify discharge learning needs (meds, wound care, etc). 7. Arrange for needed discharge transportation as appropriate Outcome: Progressing Note: Evaluation of progress towards goal: discharge planning in progress. Problem: Inadequate Airway Clearance Goal: Patient will maintain patent airway Description: INTERVENTIONS 1. Assess and monitor breath sounds, cough and sputum (if present) 2. Monitor respiratory rate and oxygen saturation 3. Collaborate with respiratory therapy to administer medication, oxygen, and suitable airway clearance techniques as ordered 4. Position patient for maximum ventilatory efficiency; elevate head of bed at least 30 degrees if appropriate 5. Provide adequate fluid intake to liquify secretions if appropriate 6. Suction secretions as indicated to maintain patent airway 7. Instruct patient to turn, cough, and deep breathe; encourage incentive spirometer if indicated Outcome: Progressing Note: Evaluation of progress towards goal: pt denies difficulty breathing at this time. Problem: Inadequate Breathing Pattern Goal: Patient will achieve/maintain normal respiratory rate/effort Description: Patient's goal is: INTERVENTIONS 1. Assess and monitor respiratory rate, effort, breathing pattern, and oxygenation 2. Monitor patient for restlessness, anxiety, air hunger 3. Assess physical activity tolerance 4. Assess tobacco history; ask, advise, and refer as appropriate 5. Collaborate with interdisciplinary team and initiate plans/interventions as needed Outcome: Progressing Note: Evaluation of progress towards goal: no s/s of sob at this time. Problem: Anxiety Goal: Anxiety is at manageable level Description: Patient's goal is: INTERVENTIONS 1. Assess and monitor patient's anxiety level 2. Monitor for signs and symptoms of anxiety both physical and emotional (heart palpitations, chestpain, shortness of breath, headaches, nausea, feeling jumpy, restlessness, irritable, apprehensive) 3. Reorient/orient patient to unit/surroundings 4. Explain treatment plan 5. Explain tests/procedures prior to initiation 6. Encourage participation in care 7. Encourage verbalization of concerns/fears 8. Assess coping mechanisms 9. Assist in developing anxiety-reducing skills 10. Administer complimentary therapies 11. Manage patient's environment 12. Limit or eliminate stimulants such as caffeine and nicotine 13. Collaborate with ancillary departments 14. Include patient/patient sales and merchandising representative in decisions related to anxiety Outcome: Progressing Note: Evaluation of progress towards goal: pt anxiety at this time. Problem: Inadequate Coping Goal: Demonstrates and verbalizes ability to cope effectively Description: Patient's goal is: INTERVENTIONS 1. Patient is able to verbalize feelings related to emotional state 2. Encourage verbalization of feelings, perceptions, fears, stressors, loss of loved ones 3. Encourage verbalization of problems out of their control 4. Encourage participation in care and self management 5. Inform patient of all treatment/care prior to providing care 6. Collaborate with pastoral/spiritual care, high school social studies tutor, mental health counselor as needed. 7. Instruct patient on diversional activities such as physical activity, distraction, and deep breathing exercises to assist with coping 8. Involve patient's sales and merchandising representative in care Outcome: Progressing Note: Evaluation of progress towards goal: pt continues to be tearful at this time. Problem: Metabolic/Fluid and Electrolytes - Adult Goal: Electrolytes maintained within normal limits Description: INTERVENTIONS 1. Monitor for signs and symptoms of hypovolemia (tachycardia, rapid breathing, decreased urine output, postural hypotension, sunken fontanel) 2. Monitor for signs and symptoms of hypervolemia (strong rapid pulse, rapid breathing, crackles heard in lung clark, edema, decreased urine output, sudden weight gain, distended neck veins in olderchildren, enlarged liver and spleen) 1. Monitor intake and output 2. Monitor pt's weight 1. Monitor labs and assess patient for signs and symptoms of electrolyte imbalances 2. Administer electrolyte replacement as ordered 3. Monitor response to electrolyte replacements, including repeat lab results as appropriate 4. Fluid restriction or hydration as ordered 5. Instruct patient/ legal sales and merchandising representative on nutrition/diet; fluid/hydration restrictions as appropriate Outcome: Progressing Note: Evaluation of progress towards goal: electrolytes replaced within normal limits at this time. * Discharge Planning Note - Mariah Gonsalez RN - 12/08/2023 3:23 PM EDT DISCHARGE PLANNING NOTE Patient discussed in DTRs. Barrier to discharge is ID plan. 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 Task sent to [facility] to get appointment set up. Plan is for patient to be discharged on Primaxin IV - [facility]. - MARIAH GONSALEZ RN 12/08/23 3:26 PM Primaxin IV is 100% covered. Script and prior auth sent to [facility]. Medication will be delivered to the patient's home between 5-9pm. Spoke with Skye at [facility] and they have the standing order for weekly labs and weekly dressing change. Patient updated and agreeable with plan to discharge home this afternoon. Patient has appointment set for 01/14/[address] Herman Lui. - MARIAH GONSALEZ RN 12/09/23 2:19 PM CRF sent to [facility]. - MARIAH GONSALEZ RN 12/09/23 3:04 PM * Plan of Care - Aliza Benito RN - 12/08/2023 3:32 AM EDT Problem: Low Risk Fall Score Description: Pickens Fall Score of 0 - 24 or indicated by [facility] Assessment Goal: Patient should be free from fall Description: Interventions: 1. Arimo to environment 2. Hourly rounds addressing the 4 P's (Pain, Positioning, Possessions, Potty) 3. Clear area of hazards (spills, clutter, electrical cords, unnecessary equipment) 4. Place equipment (bed & TV controls, call light, phone, urinal) within reach 5. Encourage patient to wear glasses and hearing aides as appropriate 6. Maintain bed in lowest position 7. Lock wheels on bed/wheelchair 8. Provide adequate lighting, including night light 9. Assess need for additional bedding, food/fluids, pain med's prior to sleep/routinely 10. Provide gripper slippers or personal non-skid footwear 11. Teach patient and patient sales and merchandising representative to maintain environment for safety and engage in all aspects of fall prevention program Outcome: Progressing Note: Evaluation of progress towards goal: Pt remains free from falls. Will continue to provide a safe environment. Problem: Pain Goal: Patient goal is pain score less than 4, able to rest, and participant in treatment plan as appropriate Description: INTERVENTIONS: 1. Encourage patient or legal sales and merchandising representative to report early pain and ask for pain medicine when needed 2. Assess pain using appropriate pain scale and include the scale used when documenting 3. Administer analgesics based on type and severity of pain and evaluate response within appropriate time frame 4. Implement non-pharmacological measures as appropriate and evaluate response 5. Consider cultural and social influences on pain and pain management 6. Notify LIP if interventions ineffective or patient reports new pain 7. Monitor vital signs including pulse ox, end-tidal CO2 based on pain intervention 8. Reassess pain per policy 9. Teach patient or legal sales and merchandising representative interventions for comforting Outcome: Progressing Note: Evaluation of progress towards goal: patient denies pain at this time Problem: Safety Goal: Patient will be injury free during hospitalization Description: INTERVENTIONS: 1. Assess patient's risk for falls and implement fall prevention plan of care per policy 2. Provide and maintain a safe environment 3. Proper use of double Identifiers 4. Medication administration using the 5 rights 5. Hand hygiene 6. Specimens are labeled at the bedside 7. Instruct patient/ patient sales and merchandising representative about use of safety devices 8. Include patient/ patient sales and merchandising representative in decisions related to safety Outcome: Progressing Note: Evaluation of progress towards goal: pt has been free from injury during this shift Problem: Infection Goal: Absence of infection during hospitalization Description: Interventions: 1. Assess and monitor for signs and symptoms of infection 2. Monitor lab/diagnostic results 3. Monitor all insertion sites i.e., indwelling lines, tubes and drains 4. Monitor endotracheal (as able) and nasal secretions for changes in amount and color 5. Administer medications as ordered 6. Instruct and encourage patient and family to use good hand hygiene technique 7. Identify and instruct patient/patient sales and merchandising representative in use of appropriate isolation precautionsfor identified infection/symptoms 8. Provide and discuss with patient/patient sales and merchandising representative on educational MDRO sheet 9. Encourage and monitor nutritional status daily and consult surveyor geophysical prospecting if indicated 10. Implement neutropenic guidelines as needed 11. Review exposure to history of communicable disease and recent travel history on admission 12. Encourage annual influenza vaccine 13. Encourage pneumonia vaccine Outcome: Progressing Note: Evaluation of progress towards goal: pt remains afebrile at this time, antibiotics are administered as ordered Problem: Knowledge Deficit Goal: Patient/patient sales and merchandising representative demonstrates understanding of disease process, treatment plan,medications, and discharge instructions Description: INTERVENTIONS 1. Complete learning assessment and assess knowledge base 2. Provide teaching at level of understanding 3. Provide teaching via preferred learning method(s) Outcome: Progressing Note: Evaluation of progress towards goal: patient understands plan of care Problem: Discharge Planning Goal: Discharge to post-acute care, other facility, or home with appropriate resources Description: Patient's goal is: home INTERVENTIONS 1. Conduct assessment to determine patient/family and health care team treatment goals, and need for post-acute services based on payer coverage, community resources, and patient preferences, and barriers to discharge 2. Coordinate with Social work, Care Navigation, and Utilization Review to arrange appropriate level of services according to patient's needs based on patient preference and payer coverage in collaboration with the physician and health care team 3. Address psychosocial, clinical, and financial barriers to discharge as identified in assessment in conjunction with the patient/family and health care team 4. Consult appropriate ancillary services (i.e.. PT/OT/ST, etc) as needed 5. Communicate with and update the patient/family, physician, and health care team regarding progress on the discharge plan 6. Identify discharge learning needs (meds, wound care, etc). 7. Arrange for needed discharge transportation as appropriate Outcome: Progressing Note: Evaluation of progress towards goal: discharge plans are ongoing Problem: Inadequate Airway Clearance Goal: Patient will maintain patent airway Description: INTERVENTIONS 1. Assess and monitor breath sounds, cough and sputum (if present) 2. Monitor respiratory rate and oxygen saturation 3. Collaborate with respiratory therapy to administer medication, oxygen, and suitable airway clearance techniques as ordered 4. Position patient for maximum ventilatory efficiency; elevate head of bed at least 30 degrees if appropriate 5. Provide adequate fluid intake to liquify secretions if appropriate 6. Suction secretions as indicated to maintain patent airway 7. Instruct patient to turn, cough, and deep breathe; encourage incentive spirometer if indicated Outcome: Progressing Note: Evaluation of progress towards goal: patient maintained patent airway during shift, respiratory rate and spo2 remain within limits Problem: Inadequate Breathing Pattern Goal: Patient will achieve/maintain normal respiratory rate/effort Description: Patient's goal is: INTERVENTIONS 1. Assess and monitor respiratory rate, effort, breathing pattern, and oxygenation 2. Monitor patient for restlessness, anxiety, air hunger 3. Assess physical activity tolerance 4. Assess tobacco history; ask, advise, and refer as appropriate 5. Collaborate with interdisciplinary team and initiate plans/interventions as needed Outcome: Progressing Note: Evaluation of progress towards goal: patient maintain normal respiratory rate during shift Problem: Anxiety Goal: Anxiety is at manageable level Description: Patient's goal is: INTERVENTIONS 1. Assess and monitor patient's anxiety level 2. Monitor for signs and symptoms of anxiety both physical and emotional (heart palpitations, chestpain, shortness of breath, headaches, nausea, feeling jumpy, restlessness, irritable, apprehensive) 3. Reorient/orient patient to unit/surroundings 4. Explain treatment plan 5. Explain tests/procedures prior to initiation 6. Encourage participation in care 7. Encourage verbalization of concerns/fears 8. Assess coping mechanisms 9. Assist in developing anxiety-reducing skills 10. Administer complimentary therapies 11. Manage patient's environment 12. Limit or eliminate stimulants such as caffeine and nicotine 13. Collaborate with ancillary departments 14. Include patient/patient sales and merchandising representative in decisions related to anxiety Outcome: Progressing Note: Evaluation of progress towards goal: patient anxiety has been managed during shift Problem: Inadequate Coping Goal: Demonstrates and verbalizes ability to cope effectively Description: Patient's goal is: INTERVENTIONS 1. Patient is able to verbalize feelings related to emotional state 2. Encourage verbalization of feelings, perceptions, fears, stressors, loss of loved ones 3. Encourage verbalization of problems out of their control 4. Encourage participation in care and self management 5. Inform patient of all treatment/care prior to providing care 6. Collaborate with pastoral/spiritual care, high school social studies tutor, mental health counselor as needed. 7. Instruct patient on diversional activities such as physical activity, distraction, and deep breathing exercises to assist with coping 8. Involve patient's sales and merchandising representative in care Outcome: Progressing Note: Evaluation of progress towards goal: patient axel effectively during shift Problem: Metabolic/Fluid and Electrolytes - Adult Goal: Electrolytes maintained within normal limits Description: INTERVENTIONS 1. Monitor for signs and symptoms of hypovolemia (tachycardia, rapid breathing, decreased urine output, postural hypotension, sunken fontanel) 2. Monitor for signs and symptoms of hypervolemia (strong rapid pulse, rapid breathing, crackles heard in lung clark, edema, decreased urine output, sudden weight gain, distended neck veins in olderchildren, enlarged liver and spleen) 1. Monitor intake and output 2. Monitor pt's weight 1. Monitor labs and assess patient for signs and symptoms of electrolyte imbalances 2. Administer electrolyte replacement as ordered 3. Monitor response to electrolyte replacements, including repeat lab results as appropriate 4. Fluid restriction or hydration as ordered 5. Instruct patient/ legal sales and merchandising representative on nutrition/diet; fluid/hydration restrictions as appropriate Outcome: Progressing Note: Evaluation of progress towards goal: electrolytes are monitored and replaced per orders * Discharge Planning Note - Mariah Gonsalez RN - 12/07/2023 12:05 PM EDT DISCHARGE PLANNING NOTE Case discussed in daily transition rounds and chart reviewed by CN. Barriers to discharge include having fevers, elevated creatinine. Met with patient at bedside and plan remains - home at discharge. Discharge Plan remains: home with possible IV antibiotics. CN will continue to follow and is available should any further needs arise. - MARIAH GONSALEZ RN 12/07/23 12:06 PM * Plan of Care - Alisha Richardson RN - 12/07/2023 10:30 AM EDT Problem: Pain Goal: Patient goal is pain score less than 4, able to rest, and participant in treatment plan as appropriate Description: INTERVENTIONS: 1. Encourage patient or legal sales and merchandising representative to report early pain and ask for pain medicine when needed 2. Assess pain using appropriate pain scale and include the scale used when documenting 3. Administer analgesics based on type and severity of pain and evaluate response within appropriate time frame 4. Implement non-pharmacological measures as appropriate and evaluate response 5. Consider cultural and social influences on pain and pain management 6. Notify LIP if interventions ineffective or patient reports new pain 7. Monitor vital signs including pulse ox, end-tidal CO2 based on pain intervention 8. Reassess pain per policy 9. Teach patient or legal sales and merchandising representative interventions for comforting Outcome: Progressing Note: Evaluation of progress towards goal: pt denies pain. Problem: Safety Goal: Patient will be injury free during hospitalization Description: INTERVENTIONS: 1. Assess patient's risk for falls and implement fall prevention plan of care per policy 2. Provide and maintain a safe environment 3. Proper use of double Identifiers 4. Medication administration using the 5 rights 5. Hand hygiene 6. Specimens are labeled at the bedside 7. Instruct patient/ patient sales and merchandising representative about use of safety devices 8. Include patient/ patient sales and merchandising representative in decisions related to safety Outcome: Progressing Note: Evaluation of progress towards goal: pt free from falls and injury. Pt IND in room Problem: Infection Goal: Absence of infection during hospitalization Description: Interventions: 1. Assess and monitor for signs and symptoms of infection 2. Monitor lab/diagnostic results 3. Monitor all insertion sites i.e., indwelling lines, tubes and drains 4. Monitor endotracheal (as able) and nasal secretions for changes in amount and color 5. Administer medications as ordered 6. Instruct and encourage patient and family to use good hand hygiene technique 7. Identify and instruct patient/patient sales and merchandising representative in use of appropriate isolation precautionsfor identified infection/symptoms 8. Provide and discuss with patient/patient sales and merchandising representative on educational MDRO sheet 9. Encourage and monitor nutritional status daily and consult surveyor geophysical prospecting if indicated 10. Implement neutropenic guidelines as needed 11. Review exposure to history of communicable disease and recent travel history on admission 12. Encourage annual influenza vaccine 13. Encourage pneumonia vaccine Outcome: Progressing Note: Evaluation of progress towards goal: pt afebrile. WBC 2.7 Problem: Knowledge Deficit Goal: Patient/patient sales and merchandising representative demonstrates understanding of disease process, treatment plan,medications, and discharge instructions Description: INTERVENTIONS 1. Complete learning assessment and assess knowledge base 2. Provide teaching at level of understanding 3. Provide teaching via preferred learning method(s) Outcome: Progressing Note: Evaluation of progress towards goal: pt A/ox4. Updated with plan of care. No questions at this time Problem: Discharge Planning Goal: Discharge to post-acute care, other facility, or home with appropriate resources Description: Patient's goal is: home INTERVENTIONS 1. Conduct assessment to determine patient/family and health care team treatment goals, and need for post-acute services based on payer coverage, community resources, and patient preferences, and barriers to discharge 2. Coordinate with Social work, Care Navigation, and Utilization Review to arrange appropriate level of services according to patient's needs based on patient preference and payer coverage in collaboration with the physician and health care team 3. Address psychosocial, clinical, and financial barriers to discharge as identified in assessment in conjunction with the patient/family and health care team 4. Consult appropriate ancillary services (i.e.. PT/OT/ST, etc) as needed 5. Communicate with and update the patient/family, physician, and health care team regarding progress on the discharge plan 6. Identify discharge learning needs (meds, wound care, etc). 7. Arrange for needed discharge transportation as appropriate Outcome: Progressing Note: Evaluation of progress towards goal: d/c plans pending * Plan of Care - Aliza Benito RN - 12/07/2023 5:19 AM EDT Problem: Low Risk Fall Score Description: Pickens Fall Score of 0 - 24 or indicated by [facility] Assessment Goal: Patient should be free from fall Description: Interventions: 1. [place] to environment 2. Hourly rounds addressing the 4 P's (Pain, Positioning, Possessions, Potty) 3. Clear area of hazards (spills, clutter, electrical cords, unnecessary equipment) 4. Place equipment (bed & TV controls, call light, phone, urinal) within reach 5. Encourage patient to wear glasses and hearing aides as appropriate 6. Maintain bed in lowest position 7. Lock wheels on bed/wheelchair 8. Provide adequate lighting, including night light 9. Assess need for additional bedding, food/fluids, pain med's prior to sleep/routinely 10. Provide gripper slippers or personal non-skid footwear 11. Teach patient and patient sales and merchandising representative to maintain environment for safety and engage in all aspects of fall prevention program Outcome: Progressing Note: Evaluation of progress towards goal: Pt remains free from falls. Will continue to provide a safe environment. Problem: Pain Goal: Patient goal is pain score less than 4, able to rest, and participant in treatment plan as appropriate Description: INTERVENTIONS: 1. Encourage patient or legal sales and merchandising representative to report early pain and ask for pain medicine when needed 2. Assess pain using appropriate pain scale and include the scale used when documenting 3. Administer analgesics based on type and severity of pain and evaluate response within appropriate time frame 4. Implement non-pharmacological measures as appropriate and evaluate response 5. Consider cultural and social influences on pain and pain management 6. Notify LIP if interventions ineffective or patient reports new pain 7. Monitor vital signs including pulse ox, end-tidal CO2 based on pain intervention 8. Reassess pain per policy 9. Teach patient or legal sales and merchandising representative interventions for comforting Outcome: Progressing Note: Evaluation of progress towards goal: patient denies pain at this time Problem: Safety Goal: Patient will be injury free during hospitalization Description: INTERVENTIONS: 1. Assess patient's risk for falls and implement fall prevention plan of care per policy 2. Provide and maintain a safe environment 3. Proper use of double Identifiers 4. Medication administration using the 5 rights 5. Hand hygiene 6. Specimens are labeled at the bedside 7. Instruct patient/ patient sales and merchandising representative about use of safety devices 8. Include patient/ patient sales and merchandising representative in decisions related to safety Outcome: Progressing Note: Evaluation of progress towards goal: pt has been free from injury during this shift Problem: Infection Goal: Absence of infection during hospitalization Description: Interventions: 1. Assess and monitor for signs and symptoms of infection 2. Monitor lab/diagnostic results 3. Monitor all insertion sites i.e., indwelling lines, tubes and drains 4. Monitor endotracheal (as able) and nasal secretions for changes in amount and color 5. Administer medications as ordered 6. Instruct and encourage patient and family to use good hand hygiene technique 7. Identify and instruct patient/patient sales and merchandising representative in use of appropriate isolation precautionsfor identified infection/symptoms 8. Provide and discuss with patient/patient sales and merchandising representative on educational MDRO sheet 9. Encourage and monitor nutritional status daily and consult surveyor geophysical prospecting if indicated 10. Implement neutropenic guidelines as needed 11. Review exposure to history of communicable disease and recent travel history on admission 12. Encourage annual influenza vaccine 13. Encourage pneumonia vaccine Outcome: Progressing Note: Evaluation of progress towards goal: patient remains on antibiotics at this time, monitoring for s/s of infection Problem: Knowledge Deficit Goal: Patient/patient sales and merchandising representative demonstrates understanding of disease process, treatment plan,medications, and discharge instructions Description: INTERVENTIONS 1. Complete learning assessment and assess knowledge base 2. Provide teaching at level of understanding 3. Provide teaching via preferred learning method(s) Outcome: Progressing Note: Evaluation of progress towards goal: patient understands plan of care Problem: Discharge Planning Goal: Discharge to post-acute care, other facility, or home with appropriate resources Description: Patient's goal is: home INTERVENTIONS 1. Conduct assessment to determine patient/family and health care team treatment goals, and need for post-acute services based on payer coverage, community resources, and patient preferences, and barriers to discharge 2. Coordinate with Social work, Care Navigation, and Utilization Review to arrange appropriate level of services according to patient's needs based on patient preference and payer coverage in collaboration with the physician and health care team 3. Address psychosocial, clinical, and financial barriers to discharge as identified in assessment in conjunction with the patient/family and health care team 4. Consult appropriate ancillary services (i.e.. PT/OT/ST, etc) as needed 5. Communicate with and update the patient/family, physician, and health care team regarding progress on the discharge plan 6. Identify discharge learning needs (meds, wound care, etc). 7. Arrange for needed discharge transportation as appropriate Outcome: Progressing Note: Evaluation of progress towards goal: discharge plans are ongoing Problem: Inadequate Airway Clearance Goal: Patient will maintain patent airway Description: INTERVENTIONS 1. Assess and monitor breath sounds, cough and sputum (if present) 2. Monitor respiratory rate and oxygen saturation 3. Collaborate with respiratory therapy to administer medication, oxygen, and suitable airway clearance techniques as ordered 4. Position patient for maximum ventilatory efficiency; elevate head of bed at least 30 degrees if appropriate 5. Provide adequate fluid intake to liquify secretions if appropriate 6. Suction secretions as indicated to maintain patent airway 7. Instruct patient to turn, cough, and deep breathe; encourage incentive spirometer if indicated Outcome: Progressing Note: Evaluation of progress towards goal: patient maintain normal respiratory rate during shift Problem: Inadequate Breathing Pattern Goal: Patient will achieve/maintain normal respiratory rate/effort Description: Patient's goal is: INTERVENTIONS 1. Assess and monitor respiratory rate, effort, breathing pattern, and oxygenation 2. Monitor patient for restlessness, anxiety, air hunger 3. Assess physical activity tolerance 4. Assess tobacco history; ask, advise, and refer as appropriate 5. Collaborate with interdisciplinary team and initiate plans/interventions as needed Outcome: Progressing Note: Evaluation of progress towards goal: patient demonstrates effective ventilation during shift Problem: Anxiety Goal: Anxiety is at manageable level Description: Patient's goal is: INTERVENTIONS 1. Assess and monitor patient's anxiety level 2. Monitor for signs and symptoms of anxiety both physical and emotional (heart palpitations, chestpain, shortness of breath, headaches, nausea, feeling jumpy, restlessness, irritable, apprehensive) 3. Reorient/orient patient to unit/surroundings 4. Explain treatment plan 5. Explain tests/procedures prior to initiation 6. Encourage participation in care 7. Encourage verbalization of concerns/fears 8. Assess coping mechanisms 9. Assist in developing anxiety-reducing skills 10. Administer complimentary therapies 11. Manage patient's environment 12. Limit or eliminate stimulants such as caffeine and nicotine 13. Collaborate with ancillary departments 14. Include patient/patient sales and merchandising representative in decisions related to anxiety Outcome: Progressing Note: Evaluation of progress towards goal: patient anxiety has been managed during shift Problem: Inadequate Coping Goal: Demonstrates and verbalizes ability to cope effectively Description: Patient's goal is: INTERVENTIONS 1. Patient is able to verbalize feelings related to emotional state 2. Encourage verbalization of feelings, perceptions, fears, stressors, loss of loved ones 3. Encourage verbalization of problems out of their control 4. Encourage participation in care and self management 5. Inform patient of all treatment/care prior to providing care 6. Collaborate with pastoral/spiritual care, high school social studies tutor, mental health counselor as needed. 7. Instruct patient on diversional activities such as physical activity, distraction, and deep breathing exercises to assist with coping 8. Involve patient's sales and merchandising representative in care Outcome: Progressing Note: Evaluation of progress towards goal: patient axel effectively during shift Problem: Metabolic/Fluid and Electrolytes - Adult Goal: Electrolytes maintained within normal limits Description: INTERVENTIONS 1. Monitor for signs and symptoms of hypovolemia (tachycardia, rapid breathing, decreased urine output, postural hypotension, sunken fontanel) 2. Monitor for signs and symptoms of hypervolemia (strong rapid pulse, rapid breathing, crackles heard in lung clark, edema, decreased urine output, sudden weight gain, distended neck veins in olderchildren, enlarged liver and spleen) 1. Monitor intake and output 2. Monitor pt's weight 1. Monitor labs and assess patient for signs and symptoms of electrolyte imbalances 2. Administer electrolyte replacement as ordered 3. Monitor response to electrolyte replacements, including repeat lab results as appropriate 4. Fluid restriction or hydration as ordered 5. Instruct patient/ legal sales and merchandising representative on nutrition/diet; fluid/hydration restrictions as appropriate Outcome: Progressing Note: Evaluation of progress towards goal: electrolytes are within range at this time * Plan of Care - Alisha Richardson RN - 12/06/2023 9:51 AM EDT Problem: Pain Goal: Patient goal is pain score less than 4, able to rest, and participant in treatment plan as appropriate Description: INTERVENTIONS: 1. Encourage patient or legal sales and merchandising representative to report early pain and ask for pain medicine when needed 2. Assess pain using appropriate pain scale and include the scale used when documenting 3. Administer analgesics based on type and severity of pain and evaluate response within appropriate time frame 4. Implement non-pharmacological measures as appropriate and evaluate response 5. Consider cultural and social influences on pain and pain management 6. Notify LIP if interventions ineffective or patient reports new pain 7. Monitor vital signs including pulse ox, end-tidal CO2 based on pain intervention 8. Reassess pain per policy 9. Teach patient or legal sales and merchandising representative interventions for comforting Outcome: Progressing Note: Evaluation of progress towards goal: pt denies pain. 0/10 Problem: Safety Goal: Patient will be injury free during hospitalization Description: INTERVENTIONS: 1. Assess patient's risk for falls and implement fall prevention plan of care per policy 2. Provide and maintain a safe environment 3. Proper use of double Identifiers 4. Medication administration using the 5 rights 5. Hand hygiene 6. Specimens are labeled at the bedside 7. Instruct patient/ patient sales and merchandising representative about use of safety devices 8. Include patient/ patient sales and merchandising representative in decisions related to safety Outcome: Progressing Note: Evaluation of progress towards goal: pt free from falls and injury. at bedside. Pt IND in room Problem: Infection Goal: Absence of infection during hospitalization Description: Interventions: 1. Assess and monitor for signs and symptoms of infection 2. Monitor lab/diagnostic results 3. Monitor all insertion sites i.e., indwelling lines, tubes and drains 4. Monitor endotracheal (as able) and nasal secretions for changes in amount and color 5. Administer medications as ordered 6. Instruct and encourage patient and family to use good hand hygiene technique 7. Identify and instruct patient/patient sales and merchandising representative in use of appropriate isolation precautionsfor identified infection/symptoms 8. Provide and discuss with patient/patient sales and merchandising representative on educational MDRO sheet 9. Encourage and monitor nutritional status daily and consult surveyor geophysical prospecting if indicated 10. Implement neutropenic guidelines as needed 11. Review exposure to history of communicable disease and recent travel history on admission 12. Encourage annual influenza vaccine 13. Encourage pneumonia vaccine Outcome: Progressing Note: Evaluation of progress towards goal: pt afebrile this AM. WBC 3.0 Positive Wound culture [facility] Problem: Knowledge Deficit Goal: Patient/patient sales and merchandising representative demonstrates understanding of disease process, treatment plan,medications, and discharge instructions Description: INTERVENTIONS 1. Complete learning assessment and assess knowledge base 2. Provide teaching at level of understanding 3. Provide teaching via preferred learning method(s) Outcome: Progressing Note: Evaluation of progress towards goal: pt A/ox4. Updated with todays plan of care. Verbalized understanding. No questions at this time Problem: Discharge Planning Goal: Discharge to post-acute care, other facility, or home with appropriate resources Description: Patient's goal is: home INTERVENTIONS 1. Conduct assessment to determine patient/family and health care team treatment goals, and need for post-acute services based on payer coverage, community resources, and patient preferences, and barriers to discharge 2. Coordinate with Social work, Care Navigation, and Utilization Review to arrange appropriate level of services according to patient's needs based on patient preference and payer coverage in collaboration with the physician and health care team 3. Address psychosocial, clinical, and financial barriers to discharge as identified in assessment in conjunction with the patient/family and health care team 4. Consult appropriate ancillary services (i.e.. PT/OT/ST, etc) as needed 5. Communicate with and update the patient/family, physician, and health care team regarding progress on the discharge plan 6. Identify discharge learning needs (meds, wound care, etc). 7. Arrange for needed discharge transportation as appropriate Outcome: Progressing Note: Evaluation of progress towards goal: awaiting referral for [facility] * Plan of Care - Skye Mary RN - 12/06/2023 1:56 AM EDT Problem: Low Risk Fall Score Description: Pickens Fall Score of 0 - 24 or indicated by [facility] Assessment Goal: Patient should be free from fall Description: Interventions: 1. [place] to environment 2. Hourly rounds addressing the 4 P's (Pain, Positioning, Possessions, Potty) 3. Clear area of hazards (spills, clutter, electrical cords, unnecessary equipment) 4. Place equipment (bed & TV controls, call light, phone, urinal) within reach 5. Encourage patient to wear glasses and hearing aides as appropriate 6. Maintain bed in lowest position 7. Lock wheels on bed/wheelchair 8. Provide adequate lighting, including night light 9. Assess need for additional bedding, food/fluids, pain med's prior to sleep/routinely 10. Provide gripper slippers or personal non-skid footwear 11. Teach patient and patient sales and merchandising representative to maintain environment for safety and engage in all aspects of fall prevention program Outcome: Progressing Note: Evaluation of progress towards goal: pt remains free from falls. Pt independent in room. Problem: Pain Goal: Patient goal is pain score less than 4, able to rest, and participant in treatment plan as appropriate Description: INTERVENTIONS: 1. Encourage patient or legal sales and merchandising representative to report early pain and ask for pain medicine when needed 2. Assess pain using appropriate pain scale and include the scale used when documenting 3. Administer analgesics based on type and severity of pain and evaluate response within appropriate time frame 4. Implement non-pharmacological measures as appropriate and evaluate response 5. Consider cultural and social influences on pain and pain management 6. Notify LIP if interventions ineffective or patient reports new pain 7. Monitor vital signs including pulse ox, end-tidal CO2 based on pain intervention 8. Reassess pain per policy 9. Teach patient or legal sales and merchandising representative interventions for comforting Outcome: Progressing Note: Evaluation of progress towards goal: pt denies any pain or discomfort. Problem: Safety Goal: Patient will be injury free during hospitalization Description: INTERVENTIONS: 1. Assess patient's risk for falls and implement fall prevention plan of care per policy 2. Provide and maintain a safe environment 3. Proper use of double Identifiers 4. Medication administration using the 5 rights 5. Hand hygiene 6. Specimens are labeled at the bedside 7. Instruct patient/ patient sales and merchandising representative about use of safety devices 8. Include patient/ patient sales and merchandising representative in decisions related to safety Outcome: Progressing Note: Evaluation of progress towards goal: pt remains free from injury. Problem: Infection Goal: Absence of infection during hospitalization Description: Interventions: 1. Assess and monitor for signs and symptoms of infection 2. Monitor lab/diagnostic results 3. Monitor all insertion sites i.e., indwelling lines, tubes and drains 4. Monitor endotracheal (as able) and nasal secretions for changes in amount and color 5. Administer medications as ordered 6. Instruct and encourage patient and family to use good hand hygiene technique 7. Identify and instruct patient/patient sales and merchandising representative in use of appropriate isolation precautionsfor identified infection/symptoms 8. Provide and discuss with patient/patient sales and merchandising representative on educational MDRO sheet 9. Encourage and monitor nutritional status daily and consult surveyor geophysical prospecting if indicated 10. Implement neutropenic guidelines as needed 11. Review exposure to history of communicable disease and recent travel history on admission 12. Encourage annual influenza vaccine 13. Encourage pneumonia vaccine Outcome: Progressing Note: Evaluation of progress towards goal: pt continues with intermittent fevers. Prn meds available. Problem: Knowledge Deficit Goal: Patient/patient sales and merchandising representative demonstrates understanding of disease process, treatment plan,medications, and discharge instructions Description: INTERVENTIONS 1. Complete learning assessment and assess knowledge base 2. Provide teaching at level of understanding 3. Provide teaching via preferred learning method(s) Outcome: Progressing Note: Evaluation of progress towards goal: pt verbalizes understanding of treatment and plan of care. All questions answered. Problem: Discharge Planning Goal: Discharge to post-acute care, other facility, or home with appropriate resources Description: Patient's goal is: home INTERVENTIONS 1. Conduct assessment to determine patient/family and health care team treatment goals, and need for post-acute services based on payer coverage, community resources, and patient preferences, and barriers to discharge 2. Coordinate with Social work, Care Navigation, and Utilization Review to arrange appropriate level of services according to patient's needs based on patient preference and payer coverage in collaboration with the physician and health care team 3. Address psychosocial, clinical, and financial barriers to discharge as identified in assessment in conjunction with the patient/family and health care team 4. Consult appropriate ancillary services (i.e.. PT/OT/ST, etc) as needed 5. Communicate with and update the patient/family, physician, and health care team regarding progress on the discharge plan 6. Identify discharge learning needs (meds, wound care, etc). 7. Arrange for needed discharge transportation as appropriate Outcome: Progressing Note: Evaluation of progress towards goal: discharge plan ongoing. Problem: Metabolic/Fluid and Electrolytes - Adult Goal: Electrolytes maintained within normal limits Description: INTERVENTIONS 1. Monitor for signs and symptoms of hypovolemia (tachycardia, rapid breathing, decreased urine output, postural hypotension, sunken fontanel) 2. Monitor for signs and symptoms of hypervolemia (strong rapid pulse, rapid breathing, crackles heard in lung clark, edema, decreased urine output, sudden weight gain, distended neck veins in olderchildren, enlarged liver and spleen) 1. Monitor intake and output 2. Monitor pt's weight 1. Monitor labs and assess patient for signs and symptoms of electrolyte imbalances 2. Administer electrolyte replacement as ordered 3. Monitor response to electrolyte replacements, including repeat lab results as appropriate 4. Fluid restriction or hydration as ordered 5. Instruct patient/ legal sales and merchandising representative on nutrition/diet; fluid/hydration restrictions as appropriate Outcome: Progressing Note: Evaluation of progress towards goal: monitoring pt's labs and electrolytes. Replacing when needed. * Plan of Care - Claudia Masterson LPN - 12/05/2023 1:17 PM EDT Problem: Low Risk Fall Score Description: Pickens Fall Score of 0 - 24 or indicated by [facility] Assessment Goal: Patient should be free from fall Description: Interventions: 1. [place] to environment 2. Hourly rounds addressing the 4 P's (Pain, Positioning, Possessions, Potty) 3. Clear area of hazards (spills, clutter, electrical cords, unnecessary equipment) 4. Place equipment (bed & TV controls, call light, phone, urinal) within reach 5. Encourage patient to wear glasses and hearing aides as appropriate 6. Maintain bed in lowest position 7. Lock wheels on bed/wheelchair 8. Provide adequate lighting, including night light 9. Assess need for additional bedding, food/fluids, pain med's prior to sleep/routinely 10. Provide gripper slippers or personal non-skid footwear 11. Teach patient and patient sales and merchandising representative to maintain environment for safety and engage in all aspects of fall prevention program Outcome: Progressing Note: Evaluation of progress towards goal: pt free from falls at this time. Problem: Pain Goal: Patient goal is pain score less than 4, able to rest, and participant in treatment plan as appropriate Description: INTERVENTIONS: 1. Encourage patient or legal sales and merchandising representative to report early pain and ask for pain medicine when needed 2. Assess pain using appropriate pain scale and include the scale used when documenting 3. Administer analgesics based on type and severity of pain and evaluate response within appropriate time frame 4. Implement non-pharmacological measures as appropriate and evaluate response 5. Consider cultural and social influences on pain and pain management 6. Notify LIP if interventions ineffective or patient reports new pain 7. Monitor vital signs including pulse ox, end-tidal CO2 based on pain intervention 8. Reassess pain per policy 9. Teach patient or legal sales and merchandising representative interventions for comforting Outcome: Progressing Note: Evaluation of progress towards goal: pt denies pain at this time. Problem: Safety Goal: Patient will be injury free during hospitalization Description: INTERVENTIONS: 1. Assess patient's risk for falls and implement fall prevention plan of care per policy 2. Provide and maintain a safe environment 3. Proper use of double Identifiers 4. Medication administration using the 5 rights 5. Hand hygiene 6. Specimens are labeled at the bedside 7. Instruct patient/ patient sales and merchandising representative about use of safety devices 8. Include patient/ patient sales and merchandising representative in decisions related to safety Outcome: Progressing Note: Evaluation of progress towards goal: pt remains free from injury at this time. Problem: Infection Goal: Absence of infection during hospitalization Description: Interventions: 1. Assess and monitor for signs and symptoms of infection 2. Monitor lab/diagnostic results 3. Monitor all insertion sites i.e., indwelling lines, tubes and drains 4. Monitor endotracheal (as able) and nasal secretions for changes in amount and color 5. Administer medications as ordered 6. Instruct and encourage patient and family to use good hand hygiene technique 7. Identify and instruct patient/patient sales and merchandising representative in use of appropriate isolation precautionsfor identified infection/symptoms 8. Provide and discuss with patient/patient sales and merchandising representative on educational MDRO sheet 9. Encourage and monitor nutritional status daily and consult surveyor geophysical prospecting if indicated 10. Implement neutropenic guidelines as needed 11. Review exposure to history of communicable disease and recent travel history on admission 12. Encourage annual influenza vaccine 13. Encourage pneumonia vaccine Outcome: Progressing Note: Evaluation of progress towards goal: pt continues to have intermittent fevers at this time. Problem: Knowledge Deficit Goal: Patient/patient sales and merchandising representative demonstrates understanding of disease process, treatment plan,medications, and discharge instructions Description: INTERVENTIONS 1. Complete learning assessment and assess knowledge base 2. Provide teaching at level of understanding 3. Provide teaching via preferred learning method(s) Outcome: Progressing Note: Evaluation of progress towards goal: Daily plan of care discussed with pt and all questions answered at this time. Problem: Discharge Planning Goal: Discharge to post-acute care, other facility, or home with appropriate resources Description: Patient's goal is: home INTERVENTIONS 1. Conduct assessment to determine patient/family and health care team treatment goals, and need for post-acute services based on payer coverage, community resources, and patient preferences, and barriers to discharge 2. Coordinate with Social work, Care Navigation, and Utilization Review to arrange appropriate level of services according to patient's needs based on patient preference and payer coverage in collaboration with the physician and health care team 3. Address psychosocial, clinical, and financial barriers to discharge as identified in assessment in conjunction with the patient/family and health care team 4. Consult appropriate ancillary services (i.e.. PT/OT/ST, etc) as needed 5. Communicate with and update the patient/family, physician, and health care team regarding progress on the discharge plan 6. Identify discharge learning needs (meds, wound care, etc). 7. Arrange for needed discharge transportation as appropriate Outcome: Progressing Note: Evaluation of progress towards goal: discharge planning in progress. Problem: Inadequate Airway Clearance Goal: Patient will maintain patent airway Description: INTERVENTIONS 1. Assess and monitor breath sounds, cough and sputum (if present) 2. Monitor respiratory rate and oxygen saturation 3. Collaborate with respiratory therapy to administer medication, oxygen, and suitable airway clearance techniques as ordered 4. Position patient for maximum ventilatory efficiency; elevate head of bed at least 30 degrees if appropriate 5. Provide adequate fluid intake to liquify secretions if appropriate 6. Suction secretions as indicated to maintain patent airway 7. Instruct patient to turn, cough, and deep breathe; encourage incentive spirometer if indicated Outcome: Progressing Note: Evaluation of progress towards goal: no sob at this time. Problem: Inadequate Breathing Pattern Goal: Patient will achieve/maintain normal respiratory rate/effort Description: Patient's goal is: INTERVENTIONS 1. Assess and monitor respiratory rate, effort, breathing pattern, and oxygenation 2. Monitor patient for restlessness, anxiety, air hunger 3. Assess physical activity tolerance 4. Assess tobacco history; ask, advise, and refer as appropriate 5. Collaborate with interdisciplinary team and initiate plans/interventions as needed Outcome: Progressing Note: Evaluation of progress towards goal: pt is having no difficulties breathing. Problem: Anxiety Goal: Anxiety is at manageable level Description: Patient's goal is: INTERVENTIONS 1. Assess and monitor patient's anxiety level 2. Monitor for signs and symptoms of anxiety both physical and emotional (heart palpitations, chestpain, shortness of breath, headaches, nausea, feeling jumpy, restlessness, irritable, apprehensive) 3. Reorient/orient patient to unit/surroundings 4. Explain treatment plan 5. Explain tests/procedures prior to initiation 6. Encourage participation in care 7. Encourage verbalization of concerns/fears 8. Assess coping mechanisms 9. Assist in developing anxiety-reducing skills 10. Administer complimentary therapies 11. Manage patient's environment 12. Limit or eliminate stimulants such as caffeine and nicotine 13. Collaborate with ancillary departments 14. Include patient/patient sales and merchandising representative in decisions related to anxiety Outcome: Progressing Note: Evaluation of progress towards goal: pt has no anxiety at this time. Problem: Inadequate Coping Goal: Demonstrates and verbalizes ability to cope effectively Description: Patient's goal is: INTERVENTIONS 1. Patient is able to verbalize feelings related to emotional state 2. Encourage verbalization of feelings, perceptions, fears, stressors, loss of loved ones 3. Encourage verbalization of problems out of their control 4. Encourage participation in care and self management 5. Inform patient of all treatment/care prior to providing care 6. Collaborate with pastoral/spiritual care, high school social studies tutor, mental health counselor as needed. 7. Instruct patient on diversional activities such as physical activity, distraction, and deep breathing exercises to assist with coping 8. Involve patient's sales and merchandising representative in care Outcome: Progressing Note: Evaluation of progress towards goal: pt having no complaints at this time. Problem: Metabolic/Fluid and Electrolytes - Adult Goal: Electrolytes maintained within normal limits Description: INTERVENTIONS 1. Monitor for signs and symptoms of hypovolemia (tachycardia, rapid breathing, decreased urine output, postural hypotension, sunken fontanel) 2. Monitor for signs and symptoms of hypervolemia (strong rapid pulse, rapid breathing, crackles heard in lung clark, edema, decreased urine output, sudden weight gain, distended neck veins in olderchildren, enlarged liver and spleen) 1. Monitor intake and output 2. Monitor pt's weight 1. Monitor labs and assess patient for signs and symptoms of electrolyte imbalances 2. Administer electrolyte replacement as ordered 3. Monitor response to electrolyte replacements, including repeat lab results as appropriate 4. Fluid restriction or hydration as ordered 5. Instruct patient/ legal sales and merchandising representative on nutrition/diet; fluid/hydration restrictions as appropriate Outcome: Progressing Note: Evaluation of progress towards goal: electrolytes replaced per scale at this time. * Plan of Care - Skye Mary RN - 12/05/2023 2:02 AM EDT Problem: Low Risk Fall Score Description: Pickens Fall Score of 0 - 24 or indicated by [facility] Assessment Goal: Patient should be free from fall Description: Interventions: 1. [place] to environment 2. Hourly rounds addressing the 4 P's (Pain, Positioning, Possessions, Potty) 3. Clear area of hazards (spills, clutter, electrical cords, unnecessary equipment) 4. Place equipment (bed & TV controls, call light, phone, urinal) within reach 5. Encourage patient to wear glasses and hearing aides as appropriate 6. Maintain bed in lowest position 7. Lock wheels on bed/wheelchair 8. Provide adequate lighting, including night light 9. Assess need for additional bedding, food/fluids, pain med's prior to sleep/routinely 10. Provide gripper slippers or personal non-skid footwear 11. Teach patient and patient sales and merchandising representative to maintain environment for safety and engage in all aspects of fall prevention program Outcome: Progressing Note: Evaluation of progress towards goal: pt remains free from falls. Pt independent in room. Problem: Pain Goal: Patient goal is pain score less than 4, able to rest, and participant in treatment plan as appropriate Description: INTERVENTIONS: 1. Encourage patient or legal sales and merchandising representative to report early pain and ask for pain medicine when needed 2. Assess pain using appropriate pain scale and include the scale used when documenting 3. Administer analgesics based on type and severity of pain and evaluate response within appropriate time frame 4. Implement non-pharmacological measures as appropriate and evaluate response 5. Consider cultural and social influences on pain and pain management 6. Notify LIP if interventions ineffective or patient reports new pain 7. Monitor vital signs including pulse ox, end-tidal CO2 based on pain intervention 8. Reassess pain per policy 9. Teach patient or legal sales and merchandising representative interventions for comforting Outcome: Progressing Note: Evaluation of progress towards goal: pt denies any pain or discomfort. Problem: Safety Goal: Patient will be injury free during hospitalization Description: INTERVENTIONS: 1. Assess patient's risk for falls and implement fall prevention plan of care per policy 2. Provide and maintain a safe environment 3. Proper use of double Identifiers 4. Medication administration using the 5 rights 5. Hand hygiene 6. Specimens are labeled at the bedside 7. Instruct patient/ patient sales and merchandising representative about use of safety devices 8. Include patient/ patient sales and merchandising representative in decisions related to safety Outcome: Progressing Note: Evaluation of progress towards goal: pt remains free from injury. Problem: Infection Goal: Absence of infection during hospitalization Description: Interventions: 1. Assess and monitor for signs and symptoms of infection 2. Monitor lab/diagnostic results 3. Monitor all insertion sites i.e., indwelling lines, tubes and drains 4. Monitor endotracheal (as able) and nasal secretions for changes in amount and color 5. Administer medications as ordered 6. Instruct and encourage patient and family to use good hand hygiene technique 7. Identify and instruct patient/patient sales and merchandising representative in use of appropriate isolation precautionsfor identified infection/symptoms 8. Provide and discuss with patient/patient sales and merchandising representative on educational MDRO sheet 9. Encourage and monitor nutritional status daily and consult surveyor geophysical prospecting if indicated 10. Implement neutropenic guidelines as needed 11. Review exposure to history of communicable disease and recent travel history on admission 12. Encourage annual influenza vaccine 13. Encourage pneumonia vaccine Outcome: Progressing Note: Evaluation of progress towards goal: monitoring pt for s/s of infection. Hand hygiene performed. Problem: Knowledge Deficit Goal: Patient/patient sales and merchandising representative demonstrates understanding of disease process, treatment plan,medications, and discharge instructions Description: INTERVENTIONS 1. Complete learning assessment and assess knowledge base 2. Provide teaching at level of understanding 3. Provide teaching via preferred learning method(s) Outcome: Progressing Note: Evaluation of progress towards goal: pt verbalizes understanding of treatment and plan of care. All questions answered. Problem: Discharge Planning Goal: Discharge to post-acute care, other facility, or home with appropriate resources Description: Patient's goal is: home INTERVENTIONS 1. Conduct assessment to determine patient/family and health care team treatment goals, and need for post-acute services based on payer coverage, community resources, and patient preferences, and barriers to discharge 2. Coordinate with Social work, Care Navigation, and Utilization Review to arrange appropriate level of services according to patient's needs based on patient preference and payer coverage in collaboration with the physician and health care team 3. Address psychosocial, clinical, and financial barriers to discharge as identified in assessment in conjunction with the patient/family and health care team 4. Consult appropriate ancillary services (i.e.. PT/OT/ST, etc) as needed 5. Communicate with and update the patient/family, physician, and health care team regarding progress on the discharge plan 6. Identify discharge learning needs (meds, wound care, etc). 7. Arrange for needed discharge transportation as appropriate Outcome: Progressing Note: Evaluation of progress towards goal: discharge plan ongoing. Plan remains home. Problem: Inadequate Breathing Pattern Goal: Patient will achieve/maintain normal respiratory rate/effort Description: Patient's goal is: INTERVENTIONS 1. Assess and monitor respiratory rate, effort, breathing pattern, and oxygenation 2. Monitor patient for restlessness, anxiety, air hunger 3. Assess physical activity tolerance 4. Assess tobacco history; ask, advise, and refer as appropriate 5. Collaborate with interdisciplinary team and initiate plans/interventions as needed Outcome: Progressing Note: Evaluation of progress towards goal: pt remains on room air. Pt denies any shortness of breath. Problem: Anxiety Goal: Anxiety is at manageable level Description: Patient's goal is: INTERVENTIONS 1. Assess and monitor patient's anxiety level 2. Monitor for signs and symptoms of anxiety both physical and emotional (heart palpitations, chestpain, shortness of breath, headaches, nausea, feeling jumpy, restlessness, irritable, apprehensive) 3. Reorient/orient patient to unit/surroundings 4. Explain treatment plan 5. Explain tests/procedures prior to initiation 6. Encourage participation in care 7. Encourage verbalization of concerns/fears 8. Assess coping mechanisms 9. Assist in developing anxiety-reducing skills 10. Administer complimentary therapies 11. Manage patient's environment 12. Limit or eliminate stimulants such as caffeine and nicotine 13. Collaborate with ancillary departments 14. Include patient/patient sales and merchandising representative in decisions related to anxiety Outcome: Progressing Note: Evaluation of progress towards goal: pt denies any anxiety. Problem: Inadequate Coping Goal: Demonstrates and verbalizes ability to cope effectively Description: Patient's goal is: INTERVENTIONS 1. Patient is able to verbalize feelings related to emotional state 2. Encourage verbalization of feelings, perceptions, fears, stressors, loss of loved ones 3. Encourage verbalization of problems out of their control 4. Encourage participation in care and self management 5. Inform patient of all treatment/care prior to providing care 6. Collaborate with pastoral/spiritual care, high school social studies tutor, mental health counselor as needed. 7. Instruct patient on diversional activities such as physical activity, distraction, and deep breathing exercises to assist with coping 8. Involve patient's sales and merchandising representative in care Outcome: Progressing Note: Evaluation of progress towards goal: pt able to cope effectively. Problem: Metabolic/Fluid and Electrolytes - Adult Goal: Electrolytes maintained within normal limits Description: INTERVENTIONS 1. Monitor for signs and symptoms of hypovolemia (tachycardia, rapid breathing, decreased urine output, postural hypotension, sunken fontanel) 2. Monitor for signs and symptoms of hypervolemia (strong rapid pulse, rapid breathing, crackles heard in lung clark, edema, decreased urine output, sudden weight gain, distended neck veins in olderchildren, enlarged liver and spleen) 1. Monitor intake and output 2. Monitor pt's weight 1. Monitor labs and assess patient for signs and symptoms of electrolyte imbalances 2. Administer electrolyte replacement as ordered 3. Monitor response to electrolyte replacements, including repeat lab results as appropriate 4. Fluid restriction or hydration as ordered 5. Instruct patient/ legal sales and merchandising representative on nutrition/diet; fluid/hydration restrictions as appropriate Outcome: Progressing Note: Evaluation of progress towards goal: monitoring pt's labs and electrolytes. Replacing when needed. * Plan of Care - Claudia Masterson, [employer] OPERATOR - 12/04/2023 3:30 PM EDT Problem: Low Risk Fall Score Description: Pickens Fall Score of 0 - 24 or indicated by [facility] Assessment Goal: Patient should be free from fall Description: Interventions: 1. [place] to environment 2. Hourly rounds addressing the 4 P's (Pain, Positioning, Possessions, Potty) 3. Clear area of hazards (spills, clutter, electrical cords, unnecessary equipment) 4. Place equipment (bed & TV controls, call light, phone, urinal) within reach 5. Encourage patient to wear glasses and hearing aides as appropriate 6. Maintain bed in lowest position 7. Lock wheels on bed/wheelchair 8. Provide adequate lighting, including night light 9. Assess need for additional bedding, food/fluids, pain med's prior to sleep/routinely 10. Provide gripper slippers or personal non-skid footwear 11. Teach patient and patient sales and merchandising representative to maintain environment for safety and engage in all aspects of fall prevention program Outcome: Progressing Note: Evaluation of progress towards goal: fall precautions in place no falls at this time. Problem: Pain Goal: Patient goal is pain score less than 4, able to rest, and participant in treatment plan as appropriate Description: INTERVENTIONS: 1. Encourage patient or legal sales and merchandising representative to report early pain and ask for pain medicine when needed 2. Assess pain using appropriate pain scale and include the scale used when documenting 3. Administer analgesics based on type and severity of pain and evaluate response within appropriate time frame 4. Implement non-pharmacological measures as appropriate and evaluate response 5. Consider cultural and social influences on pain and pain management 6. Notify LIP if interventions ineffective or patient reports new pain 7. Monitor vital signs including pulse ox, end-tidal CO2 based on pain intervention 8. Reassess pain per policy 9. Teach patient or legal sales and merchandising representative interventions for comforting Outcome: Progressing Note: Evaluation of progress towards goal: pt denies pain at this time. Problem: Safety Goal: Patient will be injury free during hospitalization Description: INTERVENTIONS: 1. Assess patient's risk for falls and implement fall prevention plan of care per policy 2. Provide and maintain a safe environment 3. Proper use of double Identifiers 4. Medication administration using the 5 rights 5. Hand hygiene 6. Specimens are labeled at the bedside 7. Instruct patient/ patient sales and merchandising representative about use of safety devices 8. Include patient/ patient sales and merchandising representative in decisions related to safety Outcome: Progressing Note: Evaluation of progress towards goal: pt remains free from injury at this time. Problem: Infection Goal: Absence of infection during hospitalization Description: Interventions: 1. Assess and monitor for signs and symptoms of infection 2. Monitor lab/diagnostic results 3. Monitor all insertion sites i.e., indwelling lines, tubes and drains 4. Monitor endotracheal (as able) and nasal secretions for changes in amount and color 5. Administer medications as ordered 6. Instruct and encourage patient and family to use good hand hygiene technique 7. Identify and instruct patient/patient sales and merchandising representative in use of appropriate isolation precautionsfor identified infection/symptoms 8. Provide and discuss with patient/patient sales and merchandising representative on educational MDRO sheet 9. Encourage and monitor nutritional status daily and consult surveyor geophysical prospecting if indicated 10. Implement neutropenic guidelines as needed 11. Review exposure to history of communicable disease and recent travel history on admission 12. Encourage annual influenza vaccine 13. Encourage pneumonia vaccine Outcome: Progressing Note: Evaluation of progress towards goal: pt remains afebrile at this time. Problem: Knowledge Deficit Goal: Patient/patient sales and merchandising representative demonstrates understanding of disease process, treatment plan,medications, and discharge instructions Description: INTERVENTIONS 1. Complete learning assessment and assess knowledge base 2. Provide teaching at level of understanding 3. Provide teaching via preferred learning method(s) Outcome: Progressing Note: Evaluation of progress towards goal: daily plan of care discussed with pt and all questions answered at this time. Problem: Discharge Planning Goal: Discharge to post-acute care, other facility, or home with appropriate resources Description: Patient's goal is: home INTERVENTIONS 1. Conduct assessment to determine patient/family and health care team treatment goals, and need for post-acute services based on payer coverage, community resources, and patient preferences, and barriers to discharge 2. Coordinate with Social work, Care Navigation, and Utilization Review to arrange appropriate level of services according to patient's needs based on patient preference and payer coverage in collaboration with the physician and health care team 3. Address psychosocial, clinical, and financial barriers to discharge as identified in assessment in conjunction with the patient/family and health care team 4. Consult appropriate ancillary services (i.e.. PT/OT/ST, etc) as needed 5. Communicate with and update the patient/family, physician, and health care team regarding progress on the discharge plan 6. Identify discharge learning needs (meds, wound care, etc). 7. Arrange for needed discharge transportation as appropriate Outcome: Progressing Note: Evaluation of progress towards goal: discharge planning in progress. Problem: Inadequate Airway Clearance Goal: Patient will maintain patent airway Description: INTERVENTIONS 1. Assess and monitor breath sounds, cough and sputum (if present) 2. Monitor respiratory rate and oxygen saturation 3. Collaborate with respiratory therapy to administer medication, oxygen, and suitable airway clearance techniques as ordered 4. Position patient for maximum ventilatory efficiency; elevate head of bed at least 30 degrees if appropriate 5. Provide adequate fluid intake to liquify secretions if appropriate 6. Suction secretions as indicated to maintain patent airway 7. Instruct patient to turn, cough, and deep breathe; encourage incentive spirometer if indicated Outcome: Progressing Note: Evaluation of progress towards goal: no difficulties breathing at this time. Problem: Inadequate Breathing Pattern Goal: Patient will achieve/maintain normal respiratory rate/effort Description: Patient's goal is: INTERVENTIONS 1. Assess and monitor respiratory rate, effort, breathing pattern, and oxygenation 2. Monitor patient for restlessness, anxiety, air hunger 3. Assess physical activity tolerance 4. Assess tobacco history; ask, advise, and refer as appropriate 5. Collaborate with interdisciplinary team and initiate plans/interventions as needed Outcome: Progressing Note: Evaluation of progress towards goal: no sob at this time. Problem: Anxiety Goal: Anxiety is at manageable level Description: Patient's goal is: INTERVENTIONS 1. Assess and monitor patient's anxiety level 2. Monitor for signs and symptoms of anxiety both physical and emotional (heart palpitations, chestpain, shortness of breath, headaches, nausea, feeling jumpy, restlessness, irritable, apprehensive) 3. Reorient/orient patient to unit/surroundings 4. Explain treatment plan 5. Explain tests/procedures prior to initiation 6. Encourage participation in care 7. Encourage verbalization of concerns/fears 8. Assess coping mechanisms 9. Assist in developing anxiety-reducing skills 10. Administer complimentary therapies 11. Manage patient's environment 12. Limit or eliminate stimulants such as caffeine and nicotine 13. Collaborate with ancillary departments 14. Include patient/patient sales and merchandising representative in decisions related to anxiety Outcome: Progressing Note: Evaluation of progress towards goal: pt denies anxiety at this time. Problem: Inadequate Coping Goal: Demonstrates and verbalizes ability to cope effectively Description: Patient's goal is: INTERVENTIONS 1. Patient is able to verbalize feelings related to emotional state 2. Encourage verbalization of feelings, perceptions, fears, stressors, loss of loved ones 3. Encourage verbalization of problems out of their control 4. Encourage participation in care and self management 5. Inform patient of all treatment/care prior to providing care 6. Collaborate with pastoral/spiritual care, high school social studies tutor, mental health counselor as needed. 7. Instruct patient on diversional activities such as physical activity, distraction, and deep breathing exercises to assist with coping 8. Involve patient's sales and merchandising representative in care Outcome: Progressing Note: Evaluation of progress towards goal: no needs at this time. Problem: Metabolic/Fluid and Electrolytes - Adult Goal: Electrolytes maintained within normal limits Description: INTERVENTIONS 1. Monitor for signs and symptoms of hypovolemia (tachycardia, rapid breathing, decreased urine output, postural hypotension, sunken fontanel) 2. Monitor for signs and symptoms of hypervolemia (strong rapid pulse, rapid breathing, crackles heard in lung clark, edema, decreased urine output, sudden weight gain, distended neck veins in olderchildren, enlarged liver and spleen) 1. Monitor intake and output 2. Monitor pt's weight 1. Monitor labs and assess patient for signs and symptoms of electrolyte imbalances 2. Administer electrolyte replacement as ordered 3. Monitor response to electrolyte replacements, including repeat lab results as appropriate 4. Fluid restriction or hydration as ordered 5. Instruct patient/ legal sales and merchandising representative on nutrition/diet; fluid/hydration restrictions as appropriate Outcome: Progressing Note: Evaluation of progress towards goal: electrolytes within normal limits at this time. * Discharge Planning Note - Mariah Gonsalez RN - 12/04/2023 1:07 PM EDT DISCHARGE PLANNING NOTE Case discussed in daily transition rounds and chart reviewed by CN. Barriers to discharge include elevated creatinine, awaiting cultures. Patient currently being treated with oral antibiotics. Met with patient at bedside and updated on plan of care. Discharge Plan remains: home. CN will continue to follow and is available should any further needs arise. - MARIAH GONSALEZ RN 12/04/23 1:08 PM * Plan of Care - Skye Mary RN - 12/04/2023 12:43 AM EDT Problem: Low Risk Fall Score Description: Pick[place] Fall Score of 0 - 24 or indicated by [facility] Assessment Goal: Patient should be free from fall Description: Interventions: 1. [place] to environment 2. Hourly rounds addressing the 4 P's (Pain, Positioning, Possessions, Potty) 3. Clear area of hazards (spills, clutter, electrical cords, unnecessary equipment) 4. Place equipment (bed & TV controls, call light, phone, urinal) within reach 5. Encourage patient to wear glasses and hearing aides as appropriate 6. Maintain bed in lowest position 7. Lock wheels on bed/wheelchair 8. Provide adequate lighting, including night light 9. Assess need for additional bedding, food/fluids, pain med's prior to sleep/routinely 10. Provide gripper slippers or personal non-skid footwear 11. Teach patient and patient sales and merchandising representative to maintain environment for safety and engage in all aspects of fall prevention program Outcome: Progressing Note: Evaluation of progress towards goal: pt remains free from falls. Pt independent in room. Problem: Pain Goal: Patient goal is pain score less than 4, able to rest, and participant in treatment plan as appropriate Description: INTERVENTIONS: 1. Encourage patient or legal sales and merchandising representative to report early pain and ask for pain medicine when needed 2. Assess pain using appropriate pain scale and include the scale used when documenting 3. Administer analgesics based on type and severity of pain and evaluate response within appropriate time frame 4. Implement non-pharmacological measures as appropriate and evaluate response 5. Consider cultural and social influences on pain and pain management 6. Notify LIP if interventions ineffective or patient reports new pain 7. Monitor vital signs including pulse ox, end-tidal CO2 based on pain intervention 8. Reassess pain per policy 9. Teach patient or legal sales and merchandising representative interventions for comforting Outcome: Progressing Note: Evaluation of progress towards goal: pt denies any pain or discomfort. Problem: Safety Goal: Patient will be injury free during hospitalization Description: INTERVENTIONS: 1. Assess patient's risk for falls and implement fall prevention plan of care per policy 2. Provide and maintain a safe environment 3. Proper use of double Identifiers 4. Medication administration using the 5 rights 5. Hand hygiene 6. Specimens are labeled at the bedside 7. Instruct patient/ patient sales and merchandising representative about use of safety devices 8. Include patient/ patient sales and merchandising representative in decisions related to safety Outcome: Progressing Note: Evaluation of progress towards goal: pt remains free from injury. Problem: Infection Goal: Absence of infection during hospitalization Description: Interventions: 1. Assess and monitor for signs and symptoms of infection 2. Monitor lab/diagnostic results 3. Monitor all insertion sites i.e., indwelling lines, tubes and drains 4. Monitor endotracheal (as able) and nasal secretions for changes in amount and color 5. Administer medications as ordered 6. Instruct and encourage patient and family to use good hand hygiene technique 7. Identify and instruct patient/patient sales and merchandising representative in use of appropriate isolation precautionsfor identified infection/symptoms 8. Provide and discuss with patient/patient sales and merchandising representative on educational MDRO sheet 9. Encourage and monitor nutritional status daily and consult surveyor geophysical prospecting if indicated 10. Implement neutropenic guidelines as needed 11. Review exposure to history of communicable disease and recent travel history on admission 12. Encourage annual influenza vaccine 13. Encourage pneumonia vaccine Outcome: Progressing Note: Evaluation of progress towards goal: pt remains afebrile. Hand hygiene performed. Problem: Knowledge Deficit Goal: Patient/patient sales and merchandising representative demonstrates understanding of disease process, treatment plan,medications, and discharge instructions Description: INTERVENTIONS 1. Complete learning assessment and assess knowledge base 2. Provide teaching at level of understanding 3. Provide teaching via preferred learning method(s) Outcome: Progressing Note: Evaluation of progress towards goal: pt verbalizes understanding of treatment and plan of care. All questions answered. Problem: Discharge Planning Goal: Discharge to post-acute care, other facility, or home with appropriate resources Description: Patient's goal is: home INTERVENTIONS 1. Conduct assessment to determine patient/family and health care team treatment goals, and need for post-acute services based on payer coverage, community resources, and patient preferences, and barriers to discharge 2. Coordinate with Social work, Care Navigation, and Utilization Review to arrange appropriate level of services according to patient's needs based on patient preference and payer coverage in collaboration with the physician and health care team 3. Address psychosocial, clinical, and financial barriers to discharge as identified in assessment in conjunction with the patient/family and health care team 4. Consult appropriate ancillary services (i.e.. PT/OT/ST, etc) as needed 5. Communicate with and update the patient/family, physician, and health care team regarding progress on the discharge plan 6. Identify discharge learning needs (meds, wound care, etc). 7. Arrange for needed discharge transportation as appropriate Outcome: Progressing Note: Evaluation of progress towards goal: discharge plan ongoing. Problem: Metabolic/Fluid and Electrolytes - Adult Goal: Electrolytes maintained within normal limits Description: INTERVENTIONS 1. Monitor for signs and symptoms of hypovolemia (tachycardia, rapid breathing, decreased urine output, postural hypotension, sunken fontanel) 2. Monitor for signs and symptoms of hypervolemia (strong rapid pulse, rapid breathing, crackles heard in lung clark, edema, decreased urine output, sudden weight gain, distended neck veins in olderchildren, enlarged liver and spleen) 1. Monitor intake and output 2. Monitor pt's weight 1. Monitor labs and assess patient for signs and symptoms of electrolyte imbalances 2. Administer electrolyte replacement as ordered 3. Monitor response to electrolyte replacements, including repeat lab results as appropriate 4. Fluid restriction or hydration as ordered 5. Instruct patient/ legal sales and merchandising representative on nutrition/diet; fluid/hydration restrictions as appropriate Outcome: Progressing Note: Evaluation of progress towards goal: monitoring pt's labs and electrolytes. Replacing when needed. * Plan of Care - Claudia MastersonSHARAD - 12/03/2023 5:13 PM EDT Problem: Low Risk Fall Score Description: Pickens Fall Score of 0 - 24 or indicated by [facility] Assessment Goal: Patient should be free from fall Description: Interventions: 1. [place] to environment 2. Hourly rounds addressing the 4 P's (Pain, Positioning, Possessions, Potty) 3. Clear area of hazards (spills, clutter, electrical cords, unnecessary equipment) 4. Place equipment (bed & TV controls, call light, phone, urinal) within reach 5. Encourage patient to wear glasses and hearing aides as appropriate 6. Maintain bed in lowest position 7. Lock wheels on bed/wheelchair 8. Provide adequate lighting, including night light 9. Assess need for additional bedding, food/fluids, pain med's prior to sleep/routinely 10. Provide gripper slippers or personal non-skid footwear 11. Teach patient and patient sales and merchandising representative to maintain environment for safety and engage in all aspects of fall prevention program Outcome: Progressing Note: Evaluation of progress towards goal: fall precautions in place, pt remains free from falls atthis time. Problem: Pain Goal: Patient goal is pain score less than 4, able to rest, and participant in treatment plan as appropriate Description: INTERVENTIONS: 1. Encourage patient or legal sales and merchandising representative to report early pain and ask for pain medicine when needed 2. Assess pain using appropriate pain scale and include the scale used when documenting 3. Administer analgesics based on type and severity of pain and evaluate response within appropriate time frame 4. Implement non-pharmacological measures as appropriate and evaluate response 5. Consider cultural and social influences on pain and pain management 6. Notify LIP if interventions ineffective or patient reports new pain 7. Monitor vital signs including pulse ox, end-tidal CO2 based on pain intervention 8. Reassess pain per policy 9. Teach patient or legal sales and merchandising representative interventions for comforting Outcome: Progressing Note: Evaluation of progress towards goal: pt continues to have a headache, improved with prn medications. Problem: Safety Goal: Patient will be injury free during hospitalization Description: INTERVENTIONS: 1. Assess patient's risk for falls and implement fall prevention plan of care per policy 2. Provide and maintain a safe environment 3. Proper use of double Identifiers 4. Medication administration using the 5 rights 5. Hand hygiene 6. Specimens are labeled at the bedside 7. Instruct patient/ patient sales and merchandising representative about use of safety devices 8. Include patient/ patient sales and merchandising representative in decisions related to safety Outcome: Progressing Note: Evaluation of progress towards goal: pt remains free from injury at this time. Problem: Infection Goal: Absence of infection during hospitalization Description: Interventions: 1. Assess and monitor for signs and symptoms of infection 2. Monitor lab/diagnostic results 3. Monitor all insertion sites i.e., indwelling lines, tubes and drains 4. Monitor endotracheal (as able) and nasal secretions for changes in amount and color 5. Administer medications as ordered 6. Instruct and encourage patient and family to use good hand hygiene technique 7. Identify and instruct patient/patient sales and merchandising representative in use of appropriate isolation precautionsfor identified infection/symptoms 8. Provide and discuss with patient/patient sales and merchandising representative on educational MDRO sheet 9. Encourage and monitor nutritional status daily and consult surveyor geophysical prospecting if indicated 10. Implement neutropenic guidelines as needed 11. Review exposure to history of communicable disease and recent travel history on admission 12. Encourage annual influenza vaccine 13. Encourage pneumonia vaccine Outcome: Progressing Note: Evaluation of progress towards goal: pt remains afebrile at this time. Problem: Knowledge Deficit Goal: Patient/patient sales and merchandising representative demonstrates understanding of disease process, treatment plan,medications, and discharge instructions Description: INTERVENTIONS 1. Complete learning assessment and assess knowledge base 2. Provide teaching at level of understanding 3. Provide teaching via preferred learning method(s) Outcome: Progressing Note: Evaluation of progress towards goal: daily plan of care discussed with pt and all questions answered at this time. Problem: Discharge Planning Goal: Discharge to post-acute care, other facility, or home with appropriate resources Description: Patient's goal is: home INTERVENTIONS 1. Conduct assessment to determine patient/family and health care team treatment goals, and need for post-acute services based on payer coverage, community resources, and patient preferences, and barriers to discharge 2. Coordinate with Social work, Care Navigation, and Utilization Review to arrange appropriate level of services according to patient's needs based on patient preference and payer coverage in collaboration with the physician and health care team 3. Address psychosocial, clinical, and financial barriers to discharge as identified in assessment in conjunction with the patient/family and health care team 4. Consult appropriate ancillary services (i.e.. PT/OT/ST, etc) as needed 5. Communicate with and update the patient/family, physician, and health care team regarding progress on the discharge plan 6. Identify discharge learning needs (meds, wound care, etc). 7. Arrange for needed discharge transportation as appropriate Outcome: Progressing Note: Evaluation of progress towards goal: discharge planning in progress. Problem: Inadequate Airway Clearance Goal: Patient will maintain patent airway Description: INTERVENTIONS 1. Assess and monitor breath sounds, cough and sputum (if present) 2. Monitor respiratory rate and oxygen saturation 3. Collaborate with respiratory therapy to administer medication, oxygen, and suitable airway clearance techniques as ordered 4. Position patient for maximum ventilatory efficiency; elevate head of bed at least 30 degrees if appropriate 5. Provide adequate fluid intake to liquify secretions if appropriate 6. Suction secretions as indicated to maintain patent airway 7. Instruct patient to turn, cough, and deep breathe; encourage incentive spirometer if indicated Outcome: Progressing Note: Evaluation of progress towards goal: no issues breathing at this time. Problem: Inadequate Breathing Pattern Goal: Patient will achieve/maintain normal respiratory rate/effort Description: Patient's goal is: INTERVENTIONS 1. Assess and monitor respiratory rate, effort, breathing pattern, and oxygenation 2. Monitor patient for restlessness, anxiety, air hunger 3. Assess physical activity tolerance 4. Assess tobacco history; ask, advise, and refer as appropriate 5. Collaborate with interdisciplinary team and initiate plans/interventions as needed Outcome: Progressing Note: Evaluation of progress towards goal: no sob at this time. Problem: Anxiety Goal: Anxiety is at manageable level Description: Patient's goal is: INTERVENTIONS 1. Assess and monitor patient's anxiety level 2. Monitor for signs and symptoms of anxiety both physical and emotional (heart palpitations, chestpain, shortness of breath, headaches, nausea, feeling jumpy, restlessness, irritable, apprehensive) 3. Reorient/orient patient to unit/surroundings 4. Explain treatment plan 5. Explain tests/procedures prior to initiation 6. Encourage participation in care 7. Encourage verbalization of concerns/fears 8. Assess coping mechanisms 9. Assist in developing anxiety-reducing skills 10. Administer complimentary therapies 11. Manage patient's environment 12. Limit or eliminate stimulants such as caffeine and nicotine 13. Collaborate with ancillary departments 14. Include patient/patient sales and merchandising representative in decisions related to anxiety Outcome: Progressing Note: Evaluation of progress towards goal: pt denies anxiety at this time. Problem: Inadequate Coping Goal: Demonstrates and verbalizes ability to cope effectively Description: Patient's goal is: INTERVENTIONS 1. Patient is able to verbalize feelings related to emotional state 2. Encourage verbalization of feelings, perceptions, fears, stressors, loss of loved ones 3. Encourage verbalization of problems out of their control 4. Encourage participation in care and self management 5. Inform patient of all treatment/care prior to providing care 6. Collaborate with pastoral/spiritual care, high school social studies tutor, mental health counselor as needed. 7. Instruct patient on diversional activities such as physical activity, distraction, and deep breathing exercises to assist with coping 8. Involve patient's sales and merchandising representative in care Outcome: Progressing Note: Evaluation of progress towards goal: pt denies needs at this time. Problem: Metabolic/Fluid and Electrolytes - Adult Goal: Electrolytes maintained within normal limits Description: INTERVENTIONS 1. Monitor for signs and symptoms of hypovolemia (tachycardia, rapid breathing, decreased urine output, postural hypotension, sunken fontanel) 2. Monitor for signs and symptoms of hypervolemia (strong rapid pulse, rapid breathing, crackles heard in lung clark, edema, decreased urine output, sudden weight gain, distended neck veins in olderchildren, enlarged liver and spleen) 1. Monitor intake and output 2. Monitor pt's weight 1. Monitor labs and assess patient for signs and symptoms of electrolyte imbalances 2. Administer electrolyte replacement as ordered 3. Monitor response to electrolyte replacements, including repeat lab results as appropriate 4. Fluid restriction or hydration as ordered 5. Instruct patient/ legal sales and merchandising representative on nutrition/diet; fluid/hydration restrictions as appropriate Outcome: Progressing Note: Evaluation of progress towards goal: electrolytes continue to need replacement at this time. * Discharge Planning Note - Heike Anderson - 12/03/2023 9:59 AM EDT DISCHARGE PLANNING NOTE [place] [facility] [facility] - (P# ; F# ) * Discharge Planning Note - Mariah Gonsalez RN - 12/03/2023 9:16 AM EDT DISCHARGE PLANNING NOTE Technical Report Writer met with patient and at bedside, introduced self, and explained role. Patient educated on safe discharge plan. Pt admitted 12/02/2023 with MIRNA (acute kidney injury) (CMS-HCC) [N17.9] per chart review. Patient lives with in a one story home with 2 steps to get into home. Patient states that her mom lives with her, her mom is receiving home care and becoming more independent. Patient is independent, drives and is employed. Medical equipment patient used prior to admission includes: none. Patient was receiving IV antibiotics - Vanco/Ertapenum at home thru [facility] with [facility] drawing labs three days a week and weekly port dressing changes. Patient denies need for transportation/ food/ prescription medication assistance resources. PCP: RICHIE HANNA APRN-GARMENT STEAMER Pharmacy:[facility] in [place] PCP and pharmacy confirmed with patient. CN offered to assist with follow up appointment arrangements, patient declined need. Current discharge plan is: home with IV antibiotics Task sent to [facility] to send referral to [facility]. Will continue to follow as plan of care develops. CN discussed benefits and importance of medication compliance and follow ups. - MARIAH GONSALEZ RN 12/03/23 9:16 AM * Plan of Care - Shanice Hogan RN - 12/03/2023 1:08 AM EDT Problem: Low Risk Fall Score Description: Pickens Fall Score of 0 - 24 or indicated by [facility] Assessment Goal: Patient should be free from fall Description: Interventions: 1. [place] to environment 2. Hourly rounds addressing the 4 P's (Pain, Positioning, Possessions, Potty) 3. Clear area of hazards (spills, clutter, electrical cords, unnecessary equipment) 4. Place equipment (bed & TV controls, call light, phone, urinal) within reach 5. Encourage patient to wear glasses and hearing aides as appropriate 6. Maintain bed in lowest position 7. Lock wheels on bed/wheelchair 8. Provide adequate lighting, including night light 9. Assess need for additional bedding, food/fluids, pain med's prior to sleep/routinely 10. Provide gripper slippers or personal non-skid footwear 11. Teach patient and patient sales and merchandising representative to maintain environment for safety and engage in all aspects of fall prevention program Outcome: Progressing Note: Evaluation of progress towards goal: Patient remains free from falls and injuries. Patient's 5 P's addressed. Patient bed is in a locked position. Patient has call light for assistance. Will continue to monitor. Problem: Pain Goal: Patient goal is pain score less than 4, able to rest, and participant in treatment plan as appropriate Description: INTERVENTIONS: 1. Encourage patient or legal sales and merchandising representative to report early pain and ask for pain medicine when needed 2. Assess pain using appropriate pain scale and include the scale used when documenting 3. Administer analgesics based on type and severity of pain and evaluate response within appropriate time frame 4. Implement non-pharmacological measures as appropriate and evaluate response 5. Consider cultural and social influences on pain and pain management 6. Notify LIP if interventions ineffective or patient reports new pain 7. Monitor vital signs including pulse ox, end-tidal CO2 based on pain intervention 8. Reassess pain per policy 9. Teach patient or legal sales and merchandising representative interventions for comforting Outcome: Progressing Note: Evaluation of progress towards goal: Patient's pain is assessed and documented with appropriate pain scale. Patient's pain is relieved with PRN medications. Will continue to assess and monitor per hospital policy. Problem: Safety Goal: Patient will be injury free during hospitalization Description: INTERVENTIONS: 1. Assess patient's risk for falls and implement fall prevention plan of care per policy 2. Provide and maintain a safe environment 3. Proper use of double Identifiers 4. Medication administration using the 5 rights 5. Hand hygiene 6. Specimens are labeled at the bedside 7. Instruct patient/ patient sales and merchandising representative about use of safety devices 8. Include patient/ patient sales and merchandising representative in decisions related to safety Outcome: Progressing Note: Evaluation of progress towards goal: Pt remains free from falls and injury, medicated using 5rights, hand hygiene in and out of room, specimens labeled at bedside Problem: Infection Goal: Absence of infection during hospitalization Description: Interventions: 1. Assess and monitor for signs and symptoms of infection 2. Monitor lab/diagnostic results 3. Monitor all insertion sites i.e., indwelling lines, tubes and drains 4. Monitor endotracheal (as able) and nasal secretions for changes in amount and color 5. Administer medications as ordered 6. Instruct and encourage patient and family to use good hand hygiene technique 7. Identify and instruct patient/patient sales and merchandising representative in use of appropriate isolation precautionsfor identified infection/symptoms 8. Provide and discuss with patient/patient sales and merchandising representative on educational MDRO sheet 9. Encourage and monitor nutritional status daily and consult surveyor geophysical prospecting if indicated 10. Implement neutropenic guidelines as needed 11. Review exposure to history of communicable disease and recent travel history on admission 12. Encourage annual influenza vaccine 13. Encourage pneumonia vaccine Outcome: Progressing Note: Evaluation of progress towards goal: Afebrile, labs and VS monitored Problem: Knowledge Deficit Goal: Patient/patient sales and merchandising representative demonstrates understanding of disease process, treatment plan,medications, and discharge instructions Description: INTERVENTIONS 1. Complete learning assessment and assess knowledge base 2. Provide teaching at level of understanding 3. Provide teaching via preferred learning method(s) Outcome: Progressing Note: Evaluation of progress towards goal: Patient updated & verbalizes understanding of POC along with medication education. Will continue to update patient. Patient is encouraged to voice concerns or ask questions regarding care. Problem: Discharge Planning Goal: Discharge to post-acute care, other facility, or home with appropriate resources Description: Patient's goal is: INTERVENTIONS 1. Conduct assessment to determine patient/family and health care team treatment goals, and need for post-acute services based on payer coverage, community resources, and patient preferences, and barriers to discharge 2. Coordinate with Social work, Care Navigation, and Utilization Review to arrange appropriate level of services according to patient's needs based on patient preference and payer coverage in collaboration with the physician and health care team 3. Address psychosocial, clinical, and financial barriers to discharge as identified in assessment in conjunction with the patient/family and health care team 4. Consult appropriate ancillary services (i.e.. PT/OT/ST, etc) as needed 5. Communicate with and update the patient/family, physician, and health care team regarding progress on the discharge plan 6. Identify discharge learning needs (meds, wound care, etc). 7. Arrange for needed discharge transportation as appropriate Outcome: Progressing Note: Evaluation of progress towards goal: An interdisciplinary approach is being utilized.Patient will better understand their condition. F/U appointments will be scheduled. Problem: Inadequate Airway Clearance Goal: Patient will maintain patent airway Description: INTERVENTIONS 1. Assess and monitor breath sounds, cough and sputum (if present) 2. Monitor respiratory rate and oxygen saturation 3. Collaborate with respiratory therapy to administer medication, oxygen, and suitable airway clearance techniques as ordered 4. Position patient for maximum ventilatory efficiency; elevate head of bed at least 30 degrees if appropriate 5. Provide adequate fluid intake to liquify secretions if appropriate 6. Suction secretions as indicated to maintain patent airway 7. Instruct patient to turn, cough, and deep breathe; encourage incentive spirometer if indicated Outcome: Progressing Note: Evaluation of progress towards goal: Patient is encouraged to use incentive spirometer 10x per hour while awake. Patient will maintain open airways as evidenced by the absence of abnormal breathe sounds, a respiratory rate within the normal range, a regular and adequate depth of respirations.And the ability to effectively cough up secretions and deep breaths.The patient will maintain oxygen saturation within normal range during rest and activity as measured by the pulse oximetry. Problem: Inadequate Breathing Pattern Goal: Patient will achieve/maintain normal respiratory rate/effort Description: Patient's goal is: INTERVENTIONS 1. Assess and monitor respiratory rate, effort, breathing pattern, and oxygenation 2. Monitor patient for restlessness, anxiety, air hunger 3. Assess physical activity tolerance 4. Assess tobacco history; ask, advise, and refer as appropriate 5. Collaborate with interdisciplinary team and initiate plans/interventions as needed Outcome: Progressing Note: Evaluation of progress towards goal: Patient is encouraged to use incentive spirometer 10x per hour while awake. Patient will maintain open airways as evidenced by the absence of abnormal breathe sounds, a respiratory rate within the normal range, a regular and adequate depth of respirations.And the ability to effectively cough up secretions and deep breaths.The patient will maintain oxygen saturation within normal range during rest and activity as measured by the pulse oximetry. Problem: Anxiety Goal: Anxiety is at manageable level Description: Patient's goal is: INTERVENTIONS 1. Assess and monitor patient's anxiety level 2. Monitor for signs and symptoms of anxiety both physical and emotional (heart palpitations, chestpain, shortness of breath, headaches, nausea, feeling jumpy, restlessness, irritable, apprehensive) 3. Reorient/orient patient to unit/surroundings 4. Explain treatment plan 5. Explain tests/procedures prior to initiation 6. Encourage participation in care 7. Encourage verbalization of concerns/fears 8. Assess coping mechanisms 9. Assist in developing anxiety-reducing skills 10. Administer complimentary therapies 11. Manage patient's environment 12. Limit or eliminate stimulants such as caffeine and nicotine 13. Collaborate with ancillary departments 14. Include patient/patient sales and merchandising representative in decisions related to anxiety Outcome: Progressing Note: Evaluation of progress towards goal: Patient is offered emotional support, PRN medications asneeded, and continued to be assessed. Problem: Inadequate Coping Goal: Demonstrates and verbalizes ability to cope effectively Description: Patient's goal is: INTERVENTIONS 1. Patient is able to verbalize feelings related to emotional state 2. Encourage verbalization of feelings, perceptions, fears, stressors, loss of loved ones 3. Encourage verbalization of problems out of their control 4. Encourage participation in care and self management 5. Inform patient of all treatment/care prior to providing care 6. Collaborate with pastoral/spiritual care, high school social studies tutor, mental health counselor as needed. 7. Instruct patient on diversional activities such as physical activity, distraction, and deep breathing exercises to assist with coping 8. Involve patient's sales and merchandising representative in care Outcome: Progressing Note: Evaluation of progress towards goal: Patient is cooperative and social. Support and encouragement provided. Patient discusses issues openly with staff and identifies stressors, develops goals and coping skills. Problem: Metabolic/Fluid and Electrolytes - Adult Goal: Electrolytes maintained within normal limits Description: INTERVENTIONS 1. Monitor for signs and symptoms of hypovolemia (tachycardia, rapid breathing, decreased urine output, postural hypotension, sunken fontanel) 2. Monitor for signs and symptoms of hypervolemia (strong rapid pulse, rapid breathing, crackles heard in lung clark, edema, decreased urine output, sudden weight gain, distended neck veins in olderchildren, enlarged liver and spleen) 1. Monitor intake and output 2. Monitor pt's weight 1. Monitor labs and assess patient for signs and symptoms of electrolyte imbalances 2. Administer electrolyte replacement as ordered 3. Monitor response to electrolyte replacements, including repeat lab results as appropriate 4. Fluid restriction or hydration as ordered 5. Instruct patient/ legal sales and merchandising representative on nutrition/diet; fluid/hydration restrictions as appropriate Outcome: Progressing Note: Evaluation of progress towards goal: Display of normal lab values. Electrolytes are replaced as needed. documented in this encounterUniversity Of Vermont Medical CenterTAKO10-09-2024 Hospital course Narrative* Amy Jack MD - 12/09/2023 2:48 PM EDT Images from the original note were not included. [facility] PHYSICIANS [facility] INTERNAL MEDICINE [facility] - ONCOLOGY/STROKE [address] [facility] [id number] Hospital Medicine Discharge Summary Patient: Ike Jones Date of : 1970 Room: [facility] Encounter date: 12/09/23 DATE OF ADMISSION: 12/02/2023 DATE OF DISCHARGE:12/09/2023 DISCHARGE DIAGNOSES # Acute kidney injury, ATN, multifactorial in the setting of decreased p.o. 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 take ciprofloxacin for 2 week course of treatment until December 15 and then Zyvox from December 16 to December 29, clarithromycin until January 14 tentatively, and imipenem until January 14tentatively Ambulatory referral placed for [facility] ID Dr. Lui for termite technician management -has appointment January 13 Check labs WBC, platelets, creatinine, LFTs weekly while on antibiotics. follow up with primary inductor tester Dr. Clint Villanueva. follow-up with nephrology in 1 month. HOSPITAL COURSE SUMMARY Ike Jones is a 53 y.o. female who presents with nausea, low grade temperature of 100.9 and feeling generally unwell. Patient has been undergoing IV antibiotics with vancomycin and ertapenem at home due to a post-operative infection of the left breast. Patient went to have labs drawn on 12/02/2023 for monitoring and was found with a significant jump in her creatinine to 2.56, previously 0.62. Labs were obtained in ED, CBC stable. Creatinine 2.52, potassium 3.2, sodium 133. 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 Patient is treated with ciprofloxacin, clarithromycin, imipenem and tigecycline in patient. Patient developed rash to tigecycline/ doxycycline, both medication discontinue, her rash improved after receiving Benadryl and steroids. After discussion with Infectious Disease, patient will be discharged home on ciprofloxacinfor 2 week course of treatment until December 15 and then Zyvox from December 16 to December 29,clarithromycin until January 14 tentatively, and imipenem until January 14 tentatively. She will follow up with [facility] ID Dr. Lui on 01/13/ Patient's kidney function improved after discontinue vancomycin and optimization of volume status, on discharge her creatinine is 1.5, she will repeat CMP and follow up with Nephrology outpatient. Code Status: Full Code Physical Exam Constitutional: General: She is not in acute distress. Appearance: Normal appearance. She is well-developed. HENT: Head: Normocephalic and atraumatic. Eyes: General: No scleral icterus. Extraocular Movements: Extraocular movements intact. Pupils: Pupils are equal, round, and reactive to light. Neck: Vascular: No carotid bruit or JVD. Cardiovascular: Rate and Rhythm: Normal rate and regular rhythm. Heart sounds: Normal heart sounds, S1 normal and S2 normal. No murmur heard. No friction rub. No gallop. Pulmonary: Effort: Pulmonary effort is normal. Breath sounds: Normal breath sounds. No decreased breath sounds, wheezing, rhonchi or rales. Abdominal: General: Bowel sounds are normal. Palpations: Abdomen is soft. Tenderness: There is no abdominal tenderness. Musculoskeletal: Trace edema Skin: General: Skin is warm and dry. Capillary Refill: Capillary refill takes less than 2 seconds. Findings: Erythema, rash and wound present. Comments: Surgical site examined, appears clean and dry. Mild erythema noted Neurological: General: No focal deficit present. Mental Status: She is alert and oriented to person, place, and time. Psychiatric: Attention and Perception: Attention normal. Mood and Affect: Mood and affect normal. Behavior: Behavior normal. Behavior is cooperative. Labs Recent Results (from the past 48 hour(s)) Comprehensive metabolic panel Collection Time: 12/08/23 5:14 AM Result Value Ref Range Sodium 136 134 - 146 mmol/L Potassium, Bld 3.2 (L) 3.5 - 5.0 mmol/L Chloride 101 98 - 109 mmol/L CO2 27 22 - 32 mmol/L Anion gap 8 5 - 15 mmol/L BUN 24 (H) 5 - 23 mg/dL Creatinine 1.89 (H) 0.40 - 1.00 mg/dL Glucose 99 65 - 99 mg/dL Calcium 8.7 8.5 - 10.5 mg/dL Total Protein 5.6 (L) 6.0 - 8.0 g/dL Albumin 3.2 3.2 - 5.3 g/dL Alkaline Phosphatase 64 39 - 130 U/L AST 28 0 - 41 U/L ALT 18 0 - 31 U/L Total bilirubin 0.6 0.3 - 1.2 mg/dL eGFR (CKD-EPI)non-race dependent 31 (L) >59 ml/min/1.73sq.m Magnesium Collection Time: 12/08/23 5:14 AM Result Value Ref Range Magnesium 1.5 (L) 1.8 - 2.6 mg/dL CBC auto differential Collection Time: 12/08/23 5:14 AM Result Value Ref Range White Blood Cells 2.9 (L) 4.0 - 11.0 X10E9/L RBC count 2.61 (L) 3.80 - 5.20 X10E12/L Hemoglobin 8.1 (L) 11.7 - 15.5 g/dL Hematocrit 23.1 (L) 35 - 47 % MCV 89 80 - 100 fL MCH 31.1 27 - 34 pg MCHC 35.1 32 - 36 g/dL RDW 14.4 11.5 - 15.0 % Platelets 147 (L) 150 - 450 X10E9/L MPV 7.5 7 - 12 fL Seg neutrophil 69.0 % Lymphocyte 14.0 % Monocytes 9.0 % Eosinophil 7.0 % Basophil 1.0 % Neutrophils Absolute (M) 2.0 1.5 - 6.6 X10E9/L Lymphocytes Absolute 0.4 (L) 1.0 - 3.5 X10E9/L Monocytes Absolute 0.3 0 - 0.9 X10E9/L Eosinophils Absolute 0.2 0.0 - 0.4 X10E9/L Basophils Absolute 0.0 0.0 - 0.2 X10E9/L RBC Morphology REVIEWED Phosphorus Collection Time: 12/08/23 5:14 AM Result Value Ref Range Phosphorus 4.1 2.4 - 4.9 mg/dL Magnesium Collection Time: 12/08/23 1:03 PM Result Value Ref Range Magnesium 2.5 1.8 - 2.6 mg/dL Potassium Collection Time: 12/08/23 1:03 PM Result Value Ref Range Potassium, Bld 3.3 (L) 3.5 - 5.0 mmol/L Potassium Collection Time: 12/08/23 8:45 PM Result Value Ref Range Potassium, Bld 3.8 3.5 - 5.0 mmol/L Comprehensive metabolic panel Collection Time: 12/09/23 5:11 AM Result Value Ref Range Sodium 139 134 - 146 mmol/L Potassium, Bld 3.8 3.5 - 5.0 mmol/L Chloride 106 98 - 109 mmol/L CO2 26 22 - 32 mmol/L Anion gap 7 5 - 15 mmol/L BUN 23 5 - 23 mg/dL Creatinine 1.50 (H) 0.40 - 1.00 mg/dL Glucose 160 (H) 65 - 99 mg/dL Calcium 8.7 8.5 - 10.5 mg/dL Total Protein 5.9 (L) 6.0 - 8.0 g/dL Albumin 3.2 3.2 - 5.3 g/dL Alkaline Phosphatase 66 39 - 130 U/L AST 39 0 - 41 U/L ALT 30 0 - 31 U/L Total bilirubin 0.6 0.3 - 1.2 mg/dL eGFR (CKD-EPI)non-race dependent 41 (L) >59 ml/min/1.73sq.m Magnesium Collection Time: 12/09/23 5:11 AM Result Value Ref Range Magnesium 1.8 1.8 - 2.6 mg/dL CBC auto differential Collection Time: 12/09/23 5:11 AM Result Value Ref Range White Blood Cells 4.3 4.0 - 11.0 X10E9/L RBC count 2.48 (L) 3.80 - 5.20 X10E12/L Hemoglobin 7.4 (L) 11.7 - 15.5 g/dL Hematocrit 22.0 (L) 35 - 47 % MCV 89 80 - 100 fL MCH 29.9 27 - 34 pg MCHC 33.8 32 - 36 g/dL RDW 14.6 11.5 - 15.0 % Platelets 153 150 - 450 X10E9/L MPV 7.6 7 - 12 fL % neutrophils 83.2 % % lymphocytes 12.0 % % monocytes 4.6 % % eosinophils 0.0 % % Basophils 0.2 % Neutrophils Absolute (A) 3.6 1.5 - 6.6 X10E9/L Lymphocytes Absolute 0.5 (L) 1.0 - 3.5 X10E9/L Monocytes Absolute 0.2 0 - 0.9 X10E9/L Eosinophils Absolute 0.0 0.0 - 0.4 X10E9/L Basophils Absolute 0.0 0.0 - 0.2 X10E9/L Phosphorus Collection Time: 12/09/23 5:11 AM Result Value Ref Range Phosphorus 3.7 2.4 - 4.9 mg/dL Radiology X-ray chest 1 view Result Date: 12/05/2023 Narrative: Clinical history: Fever Views: 1 Comparison: None Findings/Impression: 1. Heart size stable. No focal infiltrate or volume loss. No pneumothorax. 2. Scoliosis. 3. No pneumothorax nor largeeffusion. 4. In summary findings most consistent with mild vascular congestion.. Finalized by Brice Sanders MD on 12/05/2023 12:16 PM Ultrasound retroperitoneal complete Result Date: 12/04/2023 Narrative: ULTRASOUND RETROPERITONEUM INDICATION: Acute renal injury. COMPARISON: None available. FINDINGS: Ultrasound evaluation of the kidneys and bladder was performed. Right kidney: 11.4 cm in maximal length. No collecting system dilatation, calculi, or contour deforming mass lesion. Left kidney: 14.7 cm in maximal length. No collecting system dilatation, calculi, or contour deforming mass lesion. Bladder: Unremarkable fluid filled bladder. Ureteral jets not seen. IMPRESSION: 1. No acute abnormality. No stone or collecting system dilatation. Finalized by Jesus Jack MD on 12/04/2023 9:23 AM Discharge Medications: Medication List START taking these medications Instructions Last Dose Given Next Dose Due ciprofloxacin HCl 500 mg tablet Commonly known as: CIPRO Take 1 tablet (500 mg total) by mouth every 12 (twelve) hours for 7 days. clarithromycin 500 mg tablet Commonly known as: BIAXIN Take 1 tablet (500 mg total) by mouth every 12 (twelve) hours for 37 days. cyanocobalamin 1000 MCG tablet Start taking on: December 10, 2023 Take 1 tablet (1,000 mcg total) by mouth in the morning. imipenem-cilastatin 500 mg in sodium chloride 0.9 % 100 mL IVPB MINI-BAG Plus Infuse 500 mg into a venous catheter every 12 (twelve) hours for 37 days. WBC, platelets, creatinine, LFTs weekly while on antibiotics. linezolid 600 mg tablet Commonly known as: ZYVOX Start taking on: December 17, 2023 Take 1 tablet (600 mg total) by mouth in the morning and 1 tablet (600 mg total) before bedtime. Doall this for 13 days. CONTINUE taking these medications Instructions Last Dose Given Next Dose Due acetaminophen 500 mg tablet Commonly known as: TYLENOL EXTRA STRENGTH Take 2 tablets (1,000 mg total) by mouth every 8 (eight) hours as needed for pain. albuterol 2.5 mg /3 mL (0.083 %) nebulizer solution Commonly known as: PROVENTIL,VENTOLIN Inhale 3 mL (2.5 mg total) by nebulization every 6 (six) hours as needed for wheezing. chlorthalidone 25 mg tablet Commonly known as: HYGROTON Take 0.5 tablets (12.5 mg total) by mouth daily. cyclobenzaprine 10 mg tablet Commonly known as: FLEXERIL TAKE ONE TABLET BY MOUTH ONCE DAILY IN THE EVENING DULoxetine 30 mg capsule Commonly known as: CYMBALTA Take 1 capsule (30 mg total) by mouth once daily at bedtime. ELIQUIS 5 mg tablet Generic drug: apixaban Take 1 tablet (5 mg total) by mouth in the morning and 1 tablet (5 mg total) before bedtime. Indications: blood clot in a deep vein of the extremities. fluticasone propionate 50 mcg/actuation nasal spray Commonly known as: FLONASE KLOR-CON 20 mEq packet Generic drug: potassium chloride Take 1 packet (20 mEq total) by mouth in the morning. lidocaine-prilocaine cream Commonly known as: EMLA Apply 1 Application topically as needed for pain. lisinopriL 20 mg tablet Commonly known as: PRINIVIL,ZESTRIL Take 1 tablet (20 mg total) by mouth in the morning. magnesium oxide 400 mg magnesium tablet Take 400 mg by mouth in the morning. metoprolol succinate XL 100 mg 24 hr tablet Commonly known as: TOPROL XL Take 1 tablet (100 mg total) by mouth in the morning. traZODone 50 mg tablet Commonly known as: DESYREL TAKE ONE TABLET BY MOUTH ONCE DAILY AT NIGHT STOP taking these medications dexAMETHasone 1 mg tablet Commonly known as: DECADRON diazePAM 5 mg tablet Commonly known as: VALIUM ertapenem 1,000 mg in sodium chloride 0.9 % 50 mL IVPB MINI-BAG Plus ferrous sulfate 325 (65 FE) mg tablet furosemide 20 mg tablet Commonly known as: LASIX gabapentin 300 mg capsule Commonly known as: NEURONTIN oxyCODONE 5 mg immediate release tablet Commonly known as: ROXICODONE predniSONE 5 mg tablet Commonly known as: DELTASONE spironolactone 25 mg tablet Commonly known as: ALDACTONE vancomycin 1,500 mg in sodium chloride 0.9 % 500 mL IVPB ASK your doctor about these medications Instructions Last Dose Given Next Dose Due capecitabine 500 mg chemo tablet Commonly known as: XELODA Take by mouth after surgery Where to Get Your Medications [facility] [facility] [address] [facility] [address] [facility] [address], [facility] [address] ciprofloxacin HCl 500 mg tablet clarithromycin 500 mg tablet cyanocobalamin 1000 MCG tablet linezolid 600 mg tablet You can get these medications from any pharmacy Bring a paper prescription for each of these medications imipenem-cilastatin 500 mg in sodium chloride 0.9 % 100 mL IVPB MINI-BAG Plus >30 minutes were spent on discharging this patient. Amy Jack MD 12/09/2023 2:48 PM [facility] Internal Medicine 7AM-7PM (all facilities): EpicChat or page through Teabox. 7PM-7AM ([facility], [facility] Psychiatry and Inpatient Rehab): EpicChat or page, [phone]. 7PM-7AM ([place], [place], [place], [place] and [facility] Rehab): EpicChat or page through Teabox. documented in this encounterUpper Valley Medical Center10-09-[facility]24 Hospital Discharge instructions* Discharge Instructions* Amy Jack MD - 12/09/2023 2:42 PM EDT take ciprofloxacin for 2 week course of treatment until December 15 and then Zyvox from December 16 to December 29, clarithromycin until January 14 tentatively, and imipenem until January 14tentatively Ambulatory referral placed for [facility] ID Dr. Lui for skilled nursing management -has appointment January 13 Check labs WBC, platelets, creatinine, LFTs weekly while on antibiotics. follow up with primary inductor tester Dr. Clint Villanueva. follow-up with nephrology in 1 month. Please view all pages of this sheet to ensure you are receiving all your discharge instructions. Some important information from nursing and the hospital is also attached. Please present to the hospital if you have any new chest pain, shortness of breath, fever, chills, headache, palpitations, change in bowel or urinary habits, nausea/vomiting, abdominal pain, swellingin hands or feet, or if you have any other complaints. * Appointments* Heike [place] - 12/09/2023 10:36 AM EDT YOUR SCHEDULED APPOINTMENTS Please make note of this in your schedule as to not miss or call to reschedule. Thank you! HERMAN LUI DO [phone] [facility] [address] [facility] Infectious Disease [facility] [place] [phone] Go on 01/14/2024 at 2 PM Pt. should bring the following to appointment; Discharge paperwork Picture ID, Insurance card, co-pay, and all current medications in their bottles. Please provide a 24 hour notice for cancellation. Failure to do so will result in the practice declining to see pt. in the future. If you have insurance copay you must bring with you to the appointment. Please arrive about 15 minutes prior to appointment for check-in/registration. For NEW PATIENT APPOINTMENTS, please arrive 30 minutes early to complete new patient paperwork. For NEW patients, MD will not prescribe skilled nursing pain medication. * Attachments The following attachments cannot be sent through Care Everywhere. * Acute kidney injury ([place]) * How to Prevent Surgical Site Infections ([place]) documented in this encounterOhioHealth Southeastern Medical CenterBridge [employer]iconductor [facility] [id number] Plan of care note * Plan of Care - Aliza Benito RN - 12/09/2023 4:18 AM EDT Problem: Low Risk Fall Score Description: [place] Fall Score of 0 - 24 or indicated by [facility] Assessment Goal: Patient should be free from fall Description: Interventions: 1. [place] to environment 2. Hourly rounds addressing the 4 P's (Pain, Positioning, Possessions, Potty) 3. Clear area of hazards (spills, clutter, electrical cords, unnecessary equipment) 4. Place equipment (bed & TV controls, call light, phone, urinal) within reach 5. Encourage patient to wear glasses and hearing aides as appropriate 6. Maintain bed in lowest position 7. Lock wheels on bed/wheelchair 8. Provide adequate lighting, including night light 9. Assess need for additional bedding, food/fluids, pain med's prior to sleep/routinely 10. Provide gripper slippers or personal non-skid footwear 11. Teach patient and patient sales and merchandising representative to maintain environment for safety and engage in all aspects of fall prevention program Outcome: Progressing Note: Evaluation of progress towards goal: Pt remains free from falls. Will continue to provide a safe environment. Problem: Pain Goal: Patient goal is pain score less than 4, able to rest, and participant in treatment plan as appropriate Description: INTERVENTIONS: 1. Encourage patient or legal sales and merchandising representative to report early pain and ask for pain medicine when needed 2. Assess pain using appropriate pain scale and include the scale used when documenting 3. Administer analgesics based on type and severity of pain and evaluate response within appropriate time frame 4. Implement non-pharmacological measures as appropriate and evaluate response 5. Consider cultural and social influences on pain and pain management 6. Notify LIP if interventions ineffective or patient reports new pain 7. Monitor vital signs including pulse ox, end-tidal CO2 based on pain intervention 8. Reassess pain per policy 9. Teach patient or legal sales and merchandising representative interventions for comforting Outcome: Progressing Note: Evaluation of progress towards goal: patient denies pain at this time Problem: Safety Goal: Patient will be injury free during hospitalization Description: INTERVENTIONS: 1. Assess patient's risk for falls and implement fall prevention plan of care per policy 2. Provide and maintain a safe environment 3. Proper use of double Identifiers 4. Medication administration using the 5 rights 5. Hand hygiene 6. Specimens are labeled at the bedside 7. Instruct patient/ patient sales and merchandising representative about use of safety devices 8. Include patient/ patient sales and merchandising representative in decisions related to safety Outcome: Progressing Note: Evaluation of progress towards goal: pt has been free from injury during this shift Problem: Infection Goal: Absence of infection during hospitalization Description: Interventions: 1. Assess and monitor for signs and symptoms of infection 2. Monitor lab/diagnostic results 3. Monitor all insertion sites i.e., indwelling lines, tubes and drains 4. Monitor endotracheal (as able) and nasal secretions for changes in amount and color 5. Administer medications as ordered 6. Instruct and encourage patient and family to use good hand hygiene technique 7. Identify and instruct patient/patient sales and merchandising representative in use of appropriate isolation precautionsfor identified infection/symptoms 8. Provide and discuss with patient/patient sales and merchandising representative on educational MDRO sheet 9. Encourage and monitor nutritional status daily and consult surveyor geophysical prospecting if indicated 10. Implement neutropenic guidelines as needed 11. Review exposure to history of communicable disease and recent travel history on admission 12. Encourage annual influenza vaccine 13. Encourage pneumonia vaccine Outcome: Progressing Note: Evaluation of progress towards goal: pt remains afebrile, currently on antibiotics Problem: Knowledge Deficit Goal: Patient/patient sales and merchandising representative demonstrates understanding of disease process, treatment plan,medications, and discharge instructions Description: INTERVENTIONS 1. Complete learning assessment and assess knowledge base 2. Provide teaching at level of understanding 3. Provide teaching via preferred learning method(s) Outcome: Progressing Note: Evaluation of progress towards goal: patient understands plan of care Problem: Discharge Planning Goal: Discharge to post-acute care, other facility, or home with appropriate resources Description: Patient's goal is: home INTERVENTIONS 1. Conduct assessment to determine patient/family and health care team treatment goals, and need for post-acute services based on payer coverage, community resources, and patient preferences, and barriers to discharge 2. Coordinate with Social work, Care Navigation, and Utilization Review to arrange appropriate level of services according to patient's needs based on patient preference and payer coverage in collaboration with the physician and health care team 3. Address psychosocial, clinical, and financial barriers to discharge as identified in assessment in conjunction with the patient/family and health care team 4. Consult appropriate ancillary services (i.e.. PT/OT/ST, etc) as needed 5. Communicate with and update the patient/family, physician, and health care team regarding progress on the discharge plan 6. Identify discharge learning needs (meds, wound care, etc). 7. Arrange for needed discharge transportation as appropriate Outcome: Progressing Note: Evaluation of progress towards goal: patient will be discharged home when medically stable Problem: Inadequate Airway Clearance Goal: Patient will maintain patent airway Description: INTERVENTIONS 1. Assess and monitor breath sounds, cough and sputum (if present) 2. Monitor respiratory rate and oxygen saturation 3. Collaborate with respiratory therapy to administer medication, oxygen, and suitable airway clearance techniques as ordered 4. Position patient for maximum ventilatory efficiency; elevate head of bed at least 30 degrees if appropriate 5. Provide adequate fluid intake to liquify secretions if appropriate 6. Suction secretions as indicated to maintain patent airway 7. Instruct patient to turn, cough, and deep breathe; encourage incentive spirometer if indicated Outcome: Progressing Note: Evaluation of progress towards goal: patient maintained patent airway during shift Problem: Inadequate Breathing Pattern Goal: Patient will achieve/maintain normal respiratory rate/effort Description: Patient's goal is: INTERVENTIONS 1. Assess and monitor respiratory rate, effort, breathing pattern, and oxygenation 2. Monitor patient for restlessness, anxiety, air hunger 3. Assess physical activity tolerance 4. Assess tobacco history; ask, advise, and refer as appropriate 5. Collaborate with interdisciplinary team and initiate plans/interventions as needed Outcome: Progressing Note: Evaluation of progress towards goal: pt respiratory rate is 16 Problem: Anxiety Goal: Anxiety is at manageable level Description: Patient's goal is: INTERVENTIONS 1. Assess and monitor patient's anxiety level 2. Monitor for signs and symptoms of anxiety both physical and emotional (heart palpitations, chestpain, shortness of breath, headaches, nausea, feeling jumpy, restlessness, irritable, apprehensive) 3. Reorient/orient patient to unit/surroundings 4. Explain treatment plan 5. Explain tests/procedures prior to initiation 6. Encourage participation in care 7. Encourage verbalization of concerns/fears 8. Assess coping mechanisms 9. Assist in developing anxiety-reducing skills 10. Administer complimentary therapies 11. Manage patient's environment 12. Limit or eliminate stimulants such as caffeine and nicotine 13. Collaborate with ancillary departments 14. Include patient/patient sales and merchandising representative in decisions related to anxiety Outcome: Progressing Note: Evaluation of progress towards goal: patient anxiety has been managed during shift Problem: Inadequate Coping Goal: Demonstrates and verbalizes ability to cope effectively Description: Patient's goal is: INTERVENTIONS 1. Patient is able to verbalize feelings related to emotional state 2. Encourage verbalization of feelings, perceptions, fears, stressors, loss of loved ones 3. Encourage verbalization of problems out of their control 4. Encourage participation in care and self management 5. Inform patient of all treatment/care prior to providing care 6. Collaborate with pastoral/spiritual care, high school social studies tutor, mental health counselor as needed. 7. Instruct patient on diversional activities such as physical activity, distraction, and deep breathing exercises to assist with coping 8. Involve patient's sales and merchandising representative in care Outcome: Progressing Note: Evaluation of progress towards goal: Patient is cooperative and social. Support and encouragement provided. Patient discusses issues openly with staff and identifies stressors, develops goals and coping skills. Problem: Metabolic/Fluid and Electrolytes - Adult Goal: Electrolytes maintained within normal limits Description: INTERVENTIONS 1. Monitor for signs and symptoms of hypovolemia (tachycardia, rapid breathing, decreased urine output, postural hypotension, sunken fontanel) 2. Monitor for signs and symptoms of hypervolemia (strong rapid pulse, rapid breathing, crackles heard in lung clark, edema, decreased urine output, sudden weight gain, distended neck veins in olderchildren, enlarged liver and spleen) 1. Monitor intake and output 2. Monitor pt's weight 1. Monitor labs and assess patient for signs and symptoms of electrolyte imbalances 2. Administer electrolyte replacement as ordered 3. Monitor response to electrolyte replacements, including repeat lab results as appropriate 4. Fluid restriction or hydration as ordered 5. Instruct patient/ legal sales and merchandising representative on nutrition/diet; fluid/hydration restrictions as appropriate Outcome: Progressing Note: Evaluation of progress towards goal: electrolytes are continuing to be monitored and replacedper protocol [employer] [id number] Plan of care note* Plan of Care - Claudia Masterson LPN - 12/08/2023 3:27 PM EDT Problem: Low Risk Fall Score Description: Pickens Fall Score of 0 - 24 or indicated by [facility] Assessment Goal: Patient should be free from fall Description: Interventions: 1. [place] to environment 2. Hourly rounds addressing the 4 P's (Pain, Positioning, Possessions, Potty) 3. Clear area of hazards (spills, clutter, electrical cords, unnecessary equipment) 4. Place equipment (bed & TV controls, call light, phone, urinal) within reach 5. Encourage patient to wear glasses and hearing aides as appropriate 6. Maintain bed in lowest position 7. Lock wheels on bed/wheelchair 8. Provide adequate lighting, including night light 9. Assess need for additional bedding, food/fluids, pain med's prior to sleep/routinely 10. Provide gripper slippers or personal non-skid footwear 11. Teach patient and patient sales and merchandising representative to maintain environment for safety and engage in all aspects of fall prevention program Outcome: Progressing Note: Evaluation of progress towards goal: pt remains free from falls at this time. Problem: Pain Goal: Patient goal is pain score less than 4, able to rest, and participant in treatment plan as appropriate Description: INTERVENTIONS: 1. Encourage patient or legal sales and merchandising representative to report early pain and ask for pain medicine when needed 2. Assess pain using appropriate pain scale and include the scale used when documenting 3. Administer analgesics based on type and severity of pain and evaluate response within appropriate time frame 4. Implement non-pharmacological measures as appropriate and evaluate response 5. Consider cultural and social influences on pain and pain management 6. Notify LIP if interventions ineffective or patient reports new pain 7. Monitor vital signs including pulse ox, end-tidal CO2 based on pain intervention 8. Reassess pain per policy 9. Teach patient or legal sales and merchandising representative interventions for comforting Outcome: Progressing Note: Evaluation of progress towards goal: pt denies pain at this time. Problem: Safety Goal: Patient will be injury free during hospitalization Description: INTERVENTIONS: 1. Assess patient's risk for falls and implement fall prevention plan of care per policy 2. Provide and maintain a safe environment 3. Proper use of double Identifiers 4. Medication administration using the 5 rights 5. Hand hygiene 6. Specimens are labeled at the bedside 7. Instruct patient/ patient sales and merchandising representative about use of safety devices 8. Include patient/ patient sales and merchandising representative in decisions related to safety Outcome: Progressing Note: Evaluation of progress towards goal: pt remains free from injury at this time. Problem: Infection Goal: Absence of infection during hospitalization Description: Interventions: 1. Assess and monitor for signs and symptoms of infection 2. Monitor lab/diagnostic results 3. Monitor all insertion sites i.e., indwelling lines, tubes and drains 4. Monitor endotracheal (as able) and nasal secretions for changes in amount and color 5. Administer medications as ordered 6. Instruct and encourage patient and family to use good hand hygiene technique 7. Identify and instruct patient/patient sales and merchandising representative in use of appropriate isolation precautionsfor identified infection/symptoms 8. Provide and discuss with patient/patient sales and merchandising representative on educational MDRO sheet 9. Encourage and monitor nutritional status daily and consult surveyor geophysical prospecting if indicated 10. Implement neutropenic guidelines as needed 11. Review exposure to history of communicable disease and recent travel history on admission 12. Encourage annual influenza vaccine 13. Encourage pneumonia vaccine Outcome: Progressing Note: Evaluation of progress towards goal: pt remains afebrile at this time. Problem: Knowledge Deficit Goal: Patient/patient sales and merchandising representative demonstrates understanding of disease process, treatment plan,medications, and discharge instructions Description: INTERVENTIONS 1. Complete learning assessment and assess knowledge base 2. Provide teaching at level of understanding 3. Provide teaching via preferred learning method(s) Outcome: Progressing Note: Evaluation of progress towards goal: daily plan of care discussed with pt and all questions answered at this time. Problem: Discharge Planning Goal: Discharge to post-acute care, other facility, or home with appropriate resources Description: Patient's goal is: home INTERVENTIONS 1. Conduct assessment to determine patient/family and health care team treatment goals, and need for post-acute services based on payer coverage, community resources, and patient preferences, and barriers to discharge 2. Coordinate with Social work, Care Navigation, and Utilization Review to arrange appropriate level of services according to patient's needs based on patient preference and payer coverage in collaboration with the physician and health care team 3. Address psychosocial, clinical, and financial barriers to discharge as identified in assessment in conjunction with the patient/family and health care team 4. Consult appropriate ancillary services (i.e.. PT/OT/ST, etc) as needed 5. Communicate with and update the patient/family, physician, and health care team regarding progress on the discharge plan 6. Identify discharge learning needs (meds, wound care, etc). 7. Arrange for needed discharge transportation as appropriate Outcome: Progressing Note: Evaluation of progress towards goal: discharge planning in progress. Problem: Inadequate Airway Clearance Goal: Patient will maintain patent airway Description: INTERVENTIONS 1. Assess and monitor breath sounds, cough and sputum (if present) 2. Monitor respiratory rate and oxygen saturation 3. Collaborate with respiratory therapy to administer medication, oxygen, and suitable airway clearance techniques as ordered 4. Position patient for maximum ventilatory efficiency; elevate head of bed at least 30 degrees if appropriate 5. Provide adequate fluid intake to liquify secretions if appropriate 6. Suction secretions as indicated to maintain patent airway 7. Instruct patient to turn, cough, and deep breathe; encourage incentive spirometer if indicated Outcome: Progressing Note: Evaluation of progress towards goal: pt denies difficulty breathing at this time. Problem: Inadequate Breathing Pattern Goal: Patient will achieve/maintain normal respiratory rate/effort Description: Patient's goal is: INTERVENTIONS 1. Assess and monitor respiratory rate, effort, breathing pattern, and oxygenation 2. Monitor patient for restlessness, anxiety, air hunger 3. Assess physical activity tolerance 4. Assess tobacco history; ask, advise, and refer as appropriate 5. Collaborate with interdisciplinary team and initiate plans/interventions as needed Outcome: Progressing Note: Evaluation of progress towards goal: no s/s of sob at this time. Problem: Anxiety Goal: Anxiety is at manageable level Description: Patient's goal is: INTERVENTIONS 1. Assess and monitor patient's anxiety level 2. Monitor for signs and symptoms of anxiety both physical and emotional (heart palpitations, chestpain, shortness of breath, headaches, nausea, feeling jumpy, restlessness, irritable, apprehensive) 3. Reorient/orient patient to unit/surroundings 4. Explain treatment plan 5. Explain tests/procedures prior to initiation 6. Encourage participation in care 7. Encourage verbalization of concerns/fears 8. Assess coping mechanisms 9. Assist in developing anxiety-reducing skills 10. Administer complimentary therapies 11. Manage patient's environment 12. Limit or eliminate stimulants such as caffeine and nicotine 13. Collaborate with ancillary departments 14. Include patient/patient sales and merchandising representative in decisions related to anxiety Outcome: Progressing Note: Evaluation of progress towards goal: pt anxiety at this time. Problem: Inadequate Coping Goal: Demonstrates and verbalizes ability to cope effectively Description: Patient's goal is: INTERVENTIONS 1. Patient is able to verbalize feelings related to emotional state 2. Encourage verbalization of feelings, perceptions, fears, stressors, loss of loved ones 3. Encourage verbalization of problems out of their control 4. Encourage participation in care and self management 5. Inform patient of all treatment/care prior to providing care 6. Collaborate with pastoral/spiritual care, high school social studies tutor, mental health counselor as needed. 7. Instruct patient on diversional activities such as physical activity, distraction, and deep breathing exercises to assist with coping 8. Involve patient's sales and merchandising representative in care Outcome: Progressing Note: Evaluation of progress towards goal: pt continues to be tearful at this time. Problem: Metabolic/Fluid and Electrolytes - Adult Goal: Electrolytes maintained within normal limits Description: INTERVENTIONS 1. Monitor for signs and symptoms of hypovolemia (tachycardia, rapid breathing, decreased urine output, postural hypotension, sunken fontanel) 2. Monitor for signs and symptoms of hypervolemia (strong rapid pulse, rapid breathing, crackles heard in lung clark, edema, decreased urine output, sudden weight gain, distended neck veins in olderchildren, enlarged liver and spleen) 1. Monitor intake and output 2. Monitor pt's weight 1. Monitor labs and assess patient for signs and symptoms of electrolyte imbalances 2. Administer electrolyte replacement as ordered 3. Monitor response to electrolyte replacements, including repeat lab results as appropriate 4. Fluid restriction or hydration as ordered 5. Instruct patient/ legal sales and merchandising representative on nutrition/diet; fluid/hydration restrictions as appropriate Outcome: Progressing Note: Evaluation of progress towards goal: electrolytes replaced within normal limits at this time. [id number] Progress note* Discharge Planning Note - Mariah Gonsalez RN - 12/08/2023 3:23 PM EDT DISCHARGE PLANNING NOTE Patient discussed in DTRs. Barrier to discharge is ID plan. 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 Task sent to [facility] to get appointment set up. Plan is for patient to be discharged on Primaxin IV - sent [facility] [employer] [place]. - MARIAH GONSALEZ RN 12/08/23 3:26 PM Primaxin IV is 100% covered. Script and prior auth sent to [facility]. Medication will be delivered to the patient's home between 5-9pm. Spoke with Skye at [facility] and they have the standing order for weekly labs and weekly dressing change. Patient updated and agreeable with plan to discharge home this afternoon. Patient has appointment set for 01/14/[address] Herman Lui. - MARIAH GONSALEZ RN 12/09/23 2:19 PM CRF sent to [employer]. 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 [place] to environment 2. Hourly rounds addressing the 4 P's (Pain, Positioning, Possessions, Potty) 3. Clear area of hazards (spills, clutter, electrical cords, unnecessary equipment) 4. Place equipment (bed & TV controls, call light, phone, urinal) within reach 5. Encourage patient to wear glasses and hearing aides as appropriate 6. Maintain bed in lowest position 7. Lock wheels on bed/wheelchair 8. Provide adequate lighting, including night light 9. Assess need for additional bedding, food/fluids, pain med's prior to sleep/routinely 10. Provide gripper slippers or personal non-skid footwear 11. Teach patient and patient sales and merchandising representative to maintain environment for safety and engage in all aspects of fall prevention program Outcome: Progressing Note: Evaluation of progress towards goal: Pt remains free from falls. Will continue to provide a safe environment. Problem: Pain Goal: Patient goal is pain score less than 4, able to rest, and participant in treatment plan as appropriate Description: INTERVENTIONS: 1. Encourage patient or legal sales and merchandising representative to report early pain and ask for pain medicine when needed 2. Assess pain using appropriate pain scale and include the scale used when documenting 3. Administer analgesics based on type and severity of pain and evaluate response within appropriate time frame 4. Implement non-pharmacological measures as appropriate and evaluate response 5. Consider cultural and social influences on pain and pain management 6. Notify LIP if interventions ineffective or patient reports new pain 7. Monitor vital signs including pulse ox, end-tidal CO2 based on pain intervention 8. Reassess pain per policy 9. Teach patient or legal sales and merchandising representative interventions for comforting Outcome: Progressing Note: Evaluation of progress towards goal: patient denies pain at this time Problem: Safety Goal: Patient will be injury free during hospitalization Description: INTERVENTIONS: 1. Assess patient's risk for falls and implement fall prevention plan of care per policy 2. Provide and maintain a safe environment 3. Proper use of double Identifiers 4. Medication administration using the 5 rights 5. Hand hygiene 6. Specimens are labeled at the bedside 7. Instruct patient/ patient sales and merchandising representative about use of safety devices 8. Include patient/ patient sales and merchandising representative in decisions related to safety Outcome: Progressing Note: Evaluation of progress towards goal: pt has been free from injury during this shift Problem: Infection Goal: Absence of infection during hospitalization Description: Interventions: 1. Assess and monitor for signs and symptoms of infection 2. Monitor lab/diagnostic results 3. Monitor all insertion sites i.e., indwelling lines, tubes and drains 4. Monitor endotracheal (as able) and nasal secretions for changes in amount and color 5. Administer medications as ordered 6. Instruct and encourage patient and family to use good hand hygiene technique 7. Identify and instruct patient/patient sales and merchandising representative in use of appropriate isolation precautionsfor identified infection/symptoms 8. Provide and discuss with patient/patient sales and merchandising representative on educational MDRO sheet 9. Encourage and monitor nutritional status daily and consult surveyor geophysical prospecting if indicated 10. Implement neutropenic guidelines as needed 11. Review exposure to history of communicable disease and recent travel history on admission 12. Encourage annual influenza vaccine 13. Encourage pneumonia vaccine Outcome: Progressing Note: Evaluation of progress towards goal: pt remains afebrile at this time, antibiotics are administered as ordered Problem: Knowledge Deficit Goal: Patient/patient sales and merchandising representative demonstrates understanding of disease process, treatment plan,medications, and discharge instructions Description: INTERVENTIONS 1. Complete learning assessment and assess knowledge base 2. Provide teaching at level of understanding 3. Provide teaching via preferred learning method(s) Outcome: Progressing Note: Evaluation of progress towards goal: patient understands plan of care Problem: Discharge Planning Goal: Discharge to post-acute care, other facility, or home with appropriate resources Description: Patient's goal is: home INTERVENTIONS 1. Conduct assessment to determine patient/family and health care team treatment goals, and need for post-acute services based on payer coverage, community resources, and patient preferences, and barriers to discharge 2. Coordinate with Social work, Care Navigation, and Utilization Review to arrange appropriate level of services according to patient's needs based on patient preference and payer coverage in collaboration with the physician and health care team 3. Address psychosocial, clinical, and financial barriers to discharge as identified in assessment in conjunction with the patient/family and health care team 4. Consult appropriate ancillary services (i.e.. PT/OT/ST, etc) as needed 5. Communicate with and update the patient/family, physician, and health care team regarding progress on the discharge plan 6. Identify discharge learning needs (meds, wound care, etc). 7. Arrange for needed discharge transportation as appropriate Outcome: Progressing Note: Evaluation of progress towards goal: discharge plans are ongoing Problem: Inadequate Airway Clearance Goal: Patient will maintain patent airway Description: INTERVENTIONS 1. Assess and monitor breath sounds, cough and sputum (if present) 2. Monitor respiratory rate and oxygen saturation 3. Collaborate with respiratory therapy to administer medication, oxygen, and suitable airway clearance techniques as ordered 4. Position patient for maximum ventilatory efficiency; elevate head of bed at least 30 degrees if appropriate 5. Provide adequate fluid intake to liquify secretions if appropriate 6. Suction secretions as indicated to maintain patent airway 7. Instruct patient to turn, cough, and deep breathe; encourage incentive spirometer if indicated Outcome: Progressing Note: Evaluation of progress towards goal: patient maintained patent airway during shift, respiratory rate and spo2 remain within limits Problem: Inadequate Breathing Pattern Goal: Patient will achieve/maintain normal respiratory rate/effort Description: Patient's goal is: INTERVENTIONS 1. Assess and monitor respiratory rate, effort, breathing pattern, and oxygenation 2. Monitor patient for restlessness, anxiety, air hunger 3. Assess physical activity tolerance 4. Assess tobacco history; ask, advise, and refer as appropriate 5. Collaborate with interdisciplinary team and initiate plans/interventions as needed Outcome: Progressing Note: Evaluation of progress towards goal: patient maintain normal respiratory rate during shift Problem: Anxiety Goal: Anxiety is at manageable level Description: Patient's goal is: INTERVENTIONS 1. Assess and monitor patient's anxiety level 2. Monitor for signs and symptoms of anxiety both physical and emotional (heart palpitations, chestpain, shortness of breath, headaches, nausea, feeling jumpy, restlessness, irritable, apprehensive) 3. Reorient/orient patient to unit/surroundings 4. Explain treatment plan 5. Explain tests/procedures prior to initiation 6. Encourage participation in care 7. Encourage verbalization of concerns/fears 8. Assess coping mechanisms 9. Assist in developing anxiety-reducing skills 10. Administer complimentary therapies 11. Manage patient's environment 12. Limit or eliminate stimulants such as caffeine and nicotine 13. Collaborate with ancillary departments 14. Include patient/patient sales and merchandising representative in decisions related to anxiety Outcome: Progressing Note: Evaluation of progress towards goal: patient anxiety has been managed during shift Problem: Inadequate Coping Goal: Demonstrates and verbalizes ability to cope effectively Description: Patient's goal is: INTERVENTIONS 1. Patient is able to verbalize feelings related to emotional state 2. Encourage verbalization of feelings, perceptions, fears, stressors, loss of loved ones 3. Encourage verbalization of problems out of their control 4. Encourage participation in care and self management 5. Inform patient of all treatment/care prior to providing care 6. Collaborate with pastoral/spiritual care, high school social studies tutor, mental health counselor as needed. 7. Instruct patient on diversional activities such as physical activity, distraction, and deep breathing exercises to assist with coping 8. Involve patient's sales and merchandising representative in care Outcome: Progressing Note: Evaluation of progress towards goal: patient axel effectively during shift Problem: Metabolic/Fluid and Electrolytes - Adult Goal: Electrolytes maintained within normal limits Description: INTERVENTIONS 1. Monitor for signs and symptoms of hypovolemia (tachycardia, rapid breathing, decreased urine output, postural hypotension, sunken fontanel) 2. Monitor for signs and symptoms of hypervolemia (strong rapid pulse, rapid breathing, crackles heard in lung clark, edema, decreased urine output, sudden weight gain, distended neck veins in olderchildren, enlarged liver and spleen) 1. Monitor intake and output 2. Monitor pt's weight 1. Monitor labs and assess patient for signs and symptoms of electrolyte imbalances 2. Administer electrolyte replacement as ordered 3. Monitor response to electrolyte replacements, including repeat lab results as appropriate 4. Fluid restriction or hydration as ordered 5. Instruct patient/ legal sales and merchandising representative on nutrition/diet; fluid/hydration restrictions as appropriate Outcome: Progressing Note: Evaluation of progress towards goal: electrolytes are monitored and replaced per orders [facility]10-07-2024 Progress note* Discharge Planning Note - Mariah Gonsalez RN - 12/07/2023 12:05 PM EDT DISCHARGE PLANNING NOTE Case discussed in daily transition rounds and chart reviewed by CN. Barriers to discharge include having fevers, elevated creatinine. Met with patient at bedside and plan remains - home at discharge. Discharge Plan remains: home with possible IV antibiotics. CN will continue to follow and is available should any further needs arise. - MARIAH GONSALEZ RN 12/07/23 12:06 PM [facility] Stat [id number] Plan of care note* Plan of Care - Alisha Richardson RN - 12/07/2023 10:30 AM EDT Problem: Pain Goal: Patient goal is pain score less than 4, able to rest, and participant in treatment plan as appropriate Description: INTERVENTIONS: 1. Encourage patient or legal sales and merchandising representative to report early pain and ask for pain medicine when needed 2. Assess pain using appropriate pain scale and include the scale used when documenting 3. Administer analgesics based on type and severity of pain and evaluate response within appropriate time frame 4. Implement non-pharmacological measures as appropriate and evaluate response 5. Consider cultural and social influences on pain and pain management 6. Notify LIP if interventions ineffective or patient reports new pain 7. Monitor vital signs including pulse ox, end-tidal CO2 based on pain intervention 8. Reassess pain per policy 9. Teach patient or legal sales and merchandising representative interventions for comforting Outcome: Progressing Note: Evaluation of progress towards goal: pt denies pain. Problem: Safety Goal: Patient will be injury free during hospitalization Description: INTERVENTIONS: 1. Assess patient's risk for falls and implement fall prevention plan of care per policy 2. Provide and maintain a safe environment 3. Proper use of double Identifiers 4. Medication administration using the 5 rights 5. Hand hygiene 6. Specimens are labeled at the bedside 7. Instruct patient/ patient sales and merchandising representative about use of safety devices 8. Include patient/ patient sales and merchandising representative in decisions related to safety Outcome: Progressing Note: Evaluation of progress towards goal: pt free from falls and injury. Pt IND in room Problem: Infection Goal: Absence of infection during hospitalization Description: Interventions: 1. Assess and monitor for signs and symptoms of infection 2. Monitor lab/diagnostic results 3. Monitor all insertion sites i.e., indwelling lines, tubes and drains 4. Monitor endotracheal (as able) and nasal secretions for changes in amount and color 5. Administer medications as ordered 6. Instruct and encourage patient and family to use good hand hygiene technique 7. Identify and instruct patient/patient sales and merchandising representative in use of appropriate isolation precautionsfor identified infection/symptoms 8. Provide and discuss with patient/patient sales and merchandising representative on educational MDRO sheet 9. Encourage and monitor nutritional status daily and consult surveyor geophysical prospecting if indicated 10. Implement neutropenic guidelines as needed 11. Review exposure to history of communicable disease and recent travel history on admission 12. Encourage annual influenza vaccine 13. Encourage pneumonia vaccine Outcome: Progressing Note: Evaluation of progress towards goal: pt afebrile. WBC 2.7 Problem: Knowledge Deficit Goal: Patient/patient sales and merchandising representative demonstrates understanding of disease process, treatment plan,medications, and discharge instructions Description: INTERVENTIONS 1. Complete learning assessment and assess knowledge base 2. Provide teaching at level of understanding 3. Provide teaching via preferred learning method(s) Outcome: Progressing Note: Evaluation of progress towards goal: pt A/ox4. Updated with plan of care. No questions at this time Problem: Discharge Planning Goal: Discharge to post-acute care, other facility, or home with appropriate resources Description: Patient's goal is: home INTERVENTIONS 1. Conduct assessment to determine patient/family and health care team treatment goals, and need for post-acute services based on payer coverage, community resources, and patient preferences, and barriers to discharge 2. Coordinate with Social work, Care Navigation, and Utilization Review to arrange appropriate level of services according to patient's needs based on patient preference and payer coverage in collaboration with the physician and health care team 3. Address psychosocial, clinical, and financial barriers to discharge as identified in assessment in conjunction with the patient/family and health care team 4. Consult appropriate ancillary services (i.e.. PT/OT/ST, etc) as needed 5. Communicate with and update the patient/family, physician, and health care team regarding progress on the discharge plan 6. Identify discharge learning needs (meds, wound care, etc). 7. Arrange for needed discharge transportation as appropriate Outcome: Progressing Note: Evaluation of progress towards goal: d/c plans pending [facility]10-07-2024 Plan of care note* Plan of Care - Aliza Benito RN - 12/07/2023 5:19 AM EDT Problem: Low Risk Fall Score Description: Pickens Fall Score of 0 - 24 or indicated by [facility] Assessment Goal: Patient should be free from fall Description: Interventions: 1. [place] to environment 2. Hourly rounds addressing the 4 P's (Pain, Positioning, Possessions, Potty) 3. Clear area of hazards (spills, clutter, electrical cords, unnecessary equipment) 4. Place equipment (bed & TV controls, call light, phone, urinal) within reach 5. Encourage patient to wear glasses and hearing aides as appropriate 6. Maintain bed in lowest position 7. Lock wheels on bed/wheelchair 8. Provide adequate lighting, including night light 9. Assess need for additional bedding, food/fluids, pain med's prior to sleep/routinely 10. Provide gripper slippers or personal non-skid footwear 11. Teach patient and patient sales and merchandising representative to maintain environment for safety and engage in all aspects of fall prevention program Outcome: Progressing Note: Evaluation of progress towards goal: Pt remains free from falls. Will continue to provide a safe environment. Problem: Pain Goal: Patient goal is pain score less than 4, able to rest, and participant in treatment plan as appropriate Description: INTERVENTIONS: 1. Encourage patient or legal sales and merchandising representative to report early pain and ask for pain medicine when needed 2. Assess pain using appropriate pain scale and include the scale used when documenting 3. Administer analgesics based on type and severity of pain and evaluate response within appropriate time frame 4. Implement non-pharmacological measures as appropriate and evaluate response 5. Consider cultural and social influences on pain and pain management 6. Notify LIP if interventions ineffective or patient reports new pain 7. Monitor vital signs including pulse ox, end-tidal CO2 based on pain intervention 8. Reassess pain per policy 9. Teach patient or legal sales and merchandising representative interventions for comforting Outcome: Progressing Note: Evaluation of progress towards goal: patient denies pain at this time Problem: Safety Goal: Patient will be injury free during hospitalization Description: INTERVENTIONS: 1. Assess patient's risk for falls and implement fall prevention plan of care per policy 2. Provide and maintain a safe environment 3. Proper use of double Identifiers 4. Medication administration using the 5 rights 5. Hand hygiene 6. Specimens are labeled at the bedside 7. Instruct patient/ patient sales and merchandising representative about use of safety devices 8. Include patient/ patient sales and merchandising representative in decisions related to safety Outcome: Progressing Note: Evaluation of progress towards goal: pt has been free from injury during this shift Problem: Infection Goal: Absence of infection during hospitalization Description: Interventions: 1. Assess and monitor for signs and symptoms of infection 2. Monitor lab/diagnostic results 3. Monitor all insertion sites i.e., indwelling lines, tubes and drains 4. Monitor endotracheal (as able) and nasal secretions for changes in amount and color 5. Administer medications as ordered 6. Instruct and encourage patient and family to use good hand hygiene technique 7. Identify and instruct patient/patient sales and merchandising representative in use of appropriate isolation precautionsfor identified infection/symptoms 8. Provide and discuss with patient/patient sales and merchandising representative on educational MDRO sheet 9. Encourage and monitor nutritional status daily and consult surveyor geophysical prospecting if indicated 10. Implement neutropenic guidelines as needed 11. Review exposure to history of communicable disease and recent travel history on admission 12. Encourage annual influenza vaccine 13. Encourage pneumonia vaccine Outcome: Progressing Note: Evaluation of progress towards goal: patient remains on antibiotics at this time, monitoring for s/s of infection Problem: Knowledge Deficit Goal: Patient/patient sales and merchandising representative demonstrates understanding of disease process, treatment plan,medications, and discharge instructions Description: INTERVENTIONS 1. Complete learning assessment and assess knowledge base 2. Provide teaching at level of understanding 3. Provide teaching via preferred learning method(s) Outcome: Progressing Note: Evaluation of progress towards goal: patient understands plan of care Problem: Discharge Planning Goal: Discharge to post-acute care, other facility, or home with appropriate resources Description: Patient's goal is: home INTERVENTIONS 1. Conduct assessment to determine patient/family and health care team treatment goals, and need for post-acute services based on payer coverage, community resources, and patient preferences, and barriers to discharge 2. Coordinate with Social work, Care Navigation, and Utilization Review to arrange appropriate level of services according to patient's needs based on patient preference and payer coverage in collaboration with the physician and health care team 3. Address psychosocial, clinical, and financial barriers to discharge as identified in assessment in conjunction with the patient/family and health care team 4. Consult appropriate ancillary services (i.e.. PT/OT/ST, etc) as needed 5. Communicate with and update the patient/family, physician, and health care team regarding progress on the discharge plan 6. Identify discharge learning needs (meds, wound care, etc). 7. Arrange for needed discharge transportation as appropriate Outcome: Progressing Note: Evaluation of progress towards goal: discharge plans are ongoing Problem: Inadequate Airway Clearance Goal: Patient will maintain patent airway Description: INTERVENTIONS 1. Assess and monitor breath sounds, cough and sputum (if present) 2. Monitor respiratory rate and oxygen saturation 3. Collaborate with respiratory therapy to administer medication, oxygen, and suitable airway clearance techniques as ordered 4. Position patient for maximum ventilatory efficiency; elevate head of bed at least 30 degrees if appropriate 5. Provide adequate fluid intake to liquify secretions if appropriate 6. Suction secretions as indicated to maintain patent airway 7. Instruct patient to turn, cough, and deep breathe; encourage incentive spirometer if indicated Outcome: Progressing Note: Evaluation of progress towards goal: patient maintain normal respiratory rate during shift Problem: Inadequate Breathing Pattern Goal: Patient will achieve/maintain normal respiratory rate/effort Description: Patient's goal is: INTERVENTIONS 1. Assess and monitor respiratory rate, effort, breathing pattern, and oxygenation 2. Monitor patient for restlessness, anxiety, air hunger 3. Assess physical activity tolerance 4. Assess tobacco history; ask, advise, and refer as appropriate 5. Collaborate with interdisciplinary team and initiate plans/interventions as needed Outcome: Progressing Note: Evaluation of progress towards goal: patient demonstrates effective ventilation during shift Problem: Anxiety Goal: Anxiety is at manageable level Description: Patient's goal is: INTERVENTIONS 1. Assess and monitor patient's anxiety level 2. Monitor for signs and symptoms of anxiety both physical and emotional (heart palpitations, chestpain, shortness of breath, headaches, nausea, feeling jumpy, restlessness, irritable, apprehensive) 3. Reorient/orient patient to unit/surroundings 4. Explain treatment plan 5. Explain tests/procedures prior to initiation 6. Encourage participation in care 7. Encourage verbalization of concerns/fears 8. Assess coping mechanisms 9. Assist in developing anxiety-reducing skills 10. Administer complimentary therapies 11. Manage patient's environment 12. Limit or eliminate stimulants such as caffeine and nicotine 13. Collaborate with ancillary departments 14. Include patient/patient sales and merchandising representative in decisions related to anxiety Outcome: Progressing Note: Evaluation of progress towards goal: patient anxiety has been managed during shift Problem: Inadequate Coping Goal: Demonstrates and verbalizes ability to cope effectively Description: Patient's goal is: INTERVENTIONS 1. Patient is able to verbalize feelings related to emotional state 2. Encourage verbalization of feelings, perceptions, fears, stressors, loss of loved ones 3. Encourage verbalization of problems out of their control 4. Encourage participation in care and self management 5. Inform patient of all treatment/care prior to providing care 6. Collaborate with pastoral/spiritual care, high school social studies tutor, mental health counselor as needed. 7. Instruct patient on diversional activities such as physical activity, distraction, and deep breathing exercises to assist with coping 8. Involve patient's sales and merchandising representative in care Outcome: Progressing Note: Evaluation of progress towards goal: patient axel effectively during shift Problem: Metabolic/Fluid and Electrolytes - Adult Goal: Electrolytes maintained within normal limits Description: INTERVENTIONS 1. Monitor for signs and symptoms of hypovolemia (tachycardia, rapid breathing, decreased urine output, postural hypotension, sunken fontanel) 2. Monitor for signs and symptoms of hypervolemia (strong rapid pulse, rapid breathing, crackles heard in lung clark, edema, decreased urine output, sudden weight gain, distended neck veins in olderchildren, enlarged liver and spleen) 1. Monitor intake and output 2. Monitor pt's weight 1. Monitor labs and assess patient for signs and symptoms of electrolyte imbalances 2. Administer electrolyte replacement as ordered 3. Monitor response to electrolyte replacements, including repeat lab results as appropriate 4. Fluid restriction or hydration as ordered 5. Instruct patient/ legal sales and merchandising representative on nutrition/diet; fluid/hydration restrictions as appropriate Outcome: Progressing Note: Evaluation of progress towards goal: electrolytes are within range at this time [facility]10-06-2024 Plan of care note* Plan of Care - Alisha Richardson RN - 12/06/2023 9:51 AM EDT Problem: Pain Goal: Patient goal is pain score less than 4, able to rest, and participant in treatment plan as appropriate Description: INTERVENTIONS: 1. Encourage patient or legal sales and merchandising representative to report early pain and ask for pain medicine when needed 2. Assess pain using appropriate pain scale and include the scale used when documenting 3. Administer analgesics based on type and severity of pain and evaluate response within appropriate time frame 4. Implement non-pharmacological measures as appropriate and evaluate response 5. Consider cultural and social influences on pain and pain management 6. Notify LIP if interventions ineffective or patient reports new pain 7. Monitor vital signs including pulse ox, end-tidal CO2 based on pain intervention 8. Reassess pain per policy 9. Teach patient or legal sales and merchandising representative interventions for comforting Outcome: Progressing Note: Evaluation of progress towards goal: pt denies pain. 010 Problem: Safety Goal: Patient will be injury free during hospitalization Description: INTERVENTIONS: 1. Assess patient's risk for falls and implement fall prevention plan of care per policy 2. Provide and maintain a safe environment 3. Proper use of double Identifiers 4. Medication administration using the 5 rights 5. Hand hygiene 6. Specimens are labeled at the bedside 7. Instruct patient/ patient sales and merchandising representative about use of safety devices 8. Include patient/ patient sales and merchandising representative in decisions related to safety Outcome: Progressing Note: Evaluation of progress towards goal: pt free from falls and injury. at bedside. Pt IND in room Problem: Infection Goal: Absence of infection during hospitalization Description: Interventions: 1. Assess and monitor for signs and symptoms of infection 2. Monitor lab/diagnostic results 3. Monitor all insertion sites i.e., indwelling lines, tubes and drains 4. Monitor endotracheal (as able) and nasal secretions for changes in amount and color 5. Administer medications as ordered 6. Instruct and encourage patient and family to use good hand hygiene technique 7. Identify and instruct patient/patient sales and merchandising representative in use of appropriate isolation precautionsfor identified infection/symptoms 8. Provide and discuss with patient/patient sales and merchandising representative on educational MDRO sheet 9. Encourage and monitor nutritional status daily and consult surveyor geophysical prospecting if indicated 10. Implement neutropenic guidelines as needed 11. Review exposure to history of communicable disease and recent travel history on admission 12. Encourage annual influenza vaccine 13. Encourage pneumonia vaccine Outcome: Progressing Note: Evaluation of progress towards goal: pt afebrile this AM. WBC 3.0 Positive Wound culture [facility] Problem: Knowledge Deficit Goal: Patient/patient sales and merchandising representative demonstrates understanding of disease process, treatment plan,medications, and discharge instructions Description: INTERVENTIONS 1. Complete learning assessment and assess knowledge base 2. Provide teaching at level of understanding 3. Provide teaching via preferred learning method(s) Outcome: Progressing Note: Evaluation of progress towards goal: pt A/ox4. Updated with todays plan of care. Verbalized understanding. No questions at this time Problem: Discharge Planning Goal: Discharge to post-acute care, other facility, or home with appropriate resources Description: Patient's goal is: home INTERVENTIONS 1. Conduct assessment to determine patient/family and health care team treatment goals, and need for post-acute services based on payer coverage, community resources, and patient preferences, and barriers to discharge 2. Coordinate with Social work, Care Navigation, and Utilization Review to arrange appropriate level of services according to patient's needs based on patient preference and payer coverage in collaboration with the physician and health care team 3. Address psychosocial, clinical, and financial barriers to discharge as identified in assessment in conjunction with the patient/family and health care team 4. Consult appropriate ancillary services (i.e.. PT/OT/ST, etc) as needed 5. Communicate with and update the patient/family, physician, and health care team regarding progress on the discharge plan 6. Identify discharge learning needs (meds, wound care, etc). 7. Arrange for needed discharge transportation as appropriate Outcome: Progressing Note: Evaluation of progress towards goal: awaiting referral for [facility]10-06-2024 Plan of care note* Plan of Care - Skye Mary RN - 12/06/2023 1:56 AM EDT Problem: Low Risk Fall Score Description: Pickens Fall Score of 0 - 24 or indicated by [facility] Assessment Goal: Patient should be free from fall Description: Interventions: 1. [place] to environment 2. Hourly rounds addressing the 4 P's (Pain, Positioning, Possessions, Potty) 3. Clear area of hazards (spills, clutter, electrical cords, unnecessary equipment) 4. Place equipment (bed & TV controls, call light, phone, urinal) within reach 5. Encourage patient to wear glasses and hearing aides as appropriate 6. Maintain bed in lowest position 7. Lock wheels on bed/wheelchair 8. Provide adequate lighting, including night light 9. Assess need for additional bedding, food/fluids, pain med's prior to sleep/routinely 10. Provide gripper slippers or personal non-skid footwear 11. Teach patient and patient sales and merchandising representative to maintain environment for safety and engage in all aspects of fall prevention program Outcome: Progressing Note: Evaluation of progress towards goal: pt remains free from falls. Pt independent in room. Problem: Pain Goal: Patient goal is pain score less than 4, able to rest, and participant in treatment plan as appropriate Description: INTERVENTIONS: 1. Encourage patient or legal sales and merchandising representative to report early pain and ask for pain medicine when needed 2. Assess pain using appropriate pain scale and include the scale used when documenting 3. Administer analgesics based on type and severity of pain and evaluate response within appropriate time frame 4. Implement non-pharmacological measures as appropriate and evaluate response 5. Consider cultural and social influences on pain and pain management 6. Notify LIP if interventions ineffective or patient reports new pain 7. Monitor vital signs including pulse ox, end-tidal CO2 based on pain intervention 8. Reassess pain per policy 9. Teach patient or legal sales and merchandising representative interventions for comforting Outcome: Progressing Note: Evaluation of progress towards goal: pt denies any pain or discomfort. Problem: Safety Goal: Patient will be injury free during hospitalization Description: INTERVENTIONS: 1. Assess patient's risk for falls and implement fall prevention plan of care per policy 2. Provide and maintain a safe environment 3. Proper use of double Identifiers 4. Medication administration using the 5 rights 5. Hand hygiene 6. Specimens are labeled at the bedside 7. Instruct patient/ patient sales and merchandising representative about use of safety devices 8. Include patient/ patient sales and merchandising representative in decisions related to safety Outcome: Progressing Note: Evaluation of progress towards goal: pt remains free from injury. Problem: Infection Goal: Absence of infection during hospitalization Description: Interventions: 1. Assess and monitor for signs and symptoms of infection 2. Monitor lab/diagnostic results 3. Monitor all insertion sites i.e., indwelling lines, tubes and drains 4. Monitor endotracheal (as able) and nasal secretions for changes in amount and color 5. Administer medications as ordered 6. Instruct and encourage patient and family to use good hand hygiene technique 7. Identify and instruct patient/patient sales and merchandising representative in use of appropriate isolation precautionsfor identified infection/symptoms 8. Provide and discuss with patient/patient sales and merchandising representative on educational MDRO sheet 9. Encourage and monitor nutritional status daily and consult surveyor geophysical prospecting if indicated 10. Implement neutropenic guidelines as needed 11. Review exposure to history of communicable disease and recent travel history on admission 12. Encourage annual influenza vaccine 13. Encourage pneumonia vaccine Outcome: Progressing Note: Evaluation of progress towards goal: pt continues with intermittent fevers. Prn meds available. Problem: Knowledge Deficit Goal: Patient/patient sales and merchandising representative demonstrates understanding of disease process, treatment plan,medications, and discharge instructions Description: INTERVENTIONS 1. Complete learning assessment and assess knowledge base 2. Provide teaching at level of understanding 3. Provide teaching via preferred learning method(s) Outcome: Progressing Note: Evaluation of progress towards goal: pt verbalizes understanding of treatment and plan of care. All questions answered. Problem: Discharge Planning Goal: Discharge to post-acute care, other facility, or home with appropriate resources Description: Patient's goal is: home INTERVENTIONS 1. Conduct assessment to determine patient/family and health care team treatment goals, and need for post-acute services based on payer coverage, community resources, and patient preferences, and barriers to discharge 2. Coordinate with Social work, Care Navigation, and Utilization Review to arrange appropriate level of services according to patient's needs based on patient preference and payer coverage in collaboration with the physician and health care team 3. Address psychosocial, clinical, and financial barriers to discharge as identified in assessment in conjunction with the patient/family and health care team 4. Consult appropriate ancillary services (i.e.. PT/OT/ST, etc) as needed 5. Communicate with and update the patient/family, physician, and health care team regarding progress on the discharge plan 6. Identify discharge learning needs (meds, wound care, etc). 7. Arrange for needed discharge transportation as appropriate Outcome: Progressing Note: Evaluation of progress towards goal: discharge plan ongoing. Problem: Metabolic/Fluid and Electrolytes - Adult Goal: Electrolytes maintained within normal limits Description: INTERVENTIONS 1. Monitor for signs and symptoms of hypovolemia (tachycardia, rapid breathing, decreased urine output, postural hypotension, sunken fontanel) 2. Monitor for signs and symptoms of hypervolemia (strong rapid pulse, rapid breathing, crackles heard in lung clark, edema, decreased urine output, sudden weight gain, distended neck veins in olderchildren, enlarged liver and spleen) 1. Monitor intake and output 2. Monitor pt's weight 1. Monitor labs and assess patient for signs and symptoms of electrolyte imbalances 2. Administer electrolyte replacement as ordered 3. Monitor response to electrolyte replacements, including repeat lab results as appropriate 4. Fluid restriction or hydration as ordered 5. Instruct patient/ legal sales and merchandising representative on nutrition/diet; fluid/hydration restrictions as appropriate Outcome: Progressing Note: Evaluation of progress towards goal: monitoring pt's labs and electrolytes. Replacing when needed. [facility]10-05-2024 Plan of care note* Plan of Care - Claudia Masterson LPN - 12/05/2023 1:17 PM EDT Problem: Low Risk Fall Score Description: Pickens Fall Score of 0 - 24 or indicated by [facility] Assessment Goal: Patient should be free from fall Description: Interventions: 1. [place] to environment 2. Hourly rounds addressing the 4 P's (Pain, Positioning, Possessions, Potty) 3. Clear area of hazards (spills, clutter, electrical cords, unnecessary equipment) 4. Place equipment (bed & TV controls, call light, phone, urinal) within reach 5. Encourage patient to wear glasses and hearing aides as appropriate 6. Maintain bed in lowest position 7. Lock wheels on bed/wheelchair 8. Provide adequate lighting, including night light 9. Assess need for additional bedding, food/fluids, pain med's prior to sleep/routinely 10. Provide gripper slippers or personal non-skid footwear 11. Teach patient and patient sales and merchandising representative to maintain environment for safety and engage in all aspects of fall prevention program Outcome: Progressing Note: Evaluation of progress towards goal: pt free from falls at this time. Problem: Pain Goal: Patient goal is pain score less than 4, able to rest, and participant in treatment plan as appropriate Description: INTERVENTIONS: 1. Encourage patient or legal sales and merchandising representative to report early pain and ask for pain medicine when needed 2. Assess pain using appropriate pain scale and include the scale used when documenting 3. Administer analgesics based on type and severity of pain and evaluate response within appropriate time frame 4. Implement non-pharmacological measures as appropriate and evaluate response 5. Consider cultural and social influences on pain and pain management 6. Notify LIP if interventions ineffective or patient reports new pain 7. Monitor vital signs including pulse ox, end-tidal CO2 based on pain intervention 8. Reassess pain per policy 9. Teach patient or legal sales and merchandising representative interventions for comforting Outcome: Progressing Note: Evaluation of progress towards goal: pt denies pain at this time. Problem: Safety Goal: Patient will be injury free during hospitalization Description: INTERVENTIONS: 1. Assess patient's risk for falls and implement fall prevention plan of care per policy 2. Provide and maintain a safe environment 3. Proper use of double Identifiers 4. Medication administration using the 5 rights 5. Hand hygiene 6. Specimens are labeled at the bedside 7. Instruct patient/ patient sales and merchandising representative about use of safety devices 8. Include patient/ patient sales and merchandising representative in decisions related to safety Outcome: Progressing Note: Evaluation of progress towards goal: pt remains free from injury at this time. Problem: Infection Goal: Absence of infection during hospitalization Description: Interventions: 1. Assess and monitor for signs and symptoms of infection 2. Monitor lab/diagnostic results 3. Monitor all insertion sites i.e., indwelling lines, tubes and drains 4. Monitor endotracheal (as able) and nasal secretions for changes in amount and color 5. Administer medications as ordered 6. Instruct and encourage patient and family to use good hand hygiene technique 7. Identify and instruct patient/patient sales and merchandising representative in use of appropriate isolation precautionsfor identified infection/symptoms 8. Provide and discuss with patient/patient sales and merchandising representative on educational MDRO sheet 9. Encourage and monitor nutritional status daily and consult surveyor geophysical prospecting if indicated 10. Implement neutropenic guidelines as needed 11. Review exposure to history of communicable disease and recent travel history on admission 12. Encourage annual influenza vaccine 13. Encourage pneumonia vaccine Outcome: Progressing Note: Evaluation of progress towards goal: pt continues to have intermittent fevers at this time. Problem: Knowledge Deficit Goal: Patient/patient sales and merchandising representative demonstrates understanding of disease process, treatment plan,medications, and discharge instructions Description: INTERVENTIONS 1. Complete learning assessment and assess knowledge base 2. Provide teaching at level of understanding 3. Provide teaching via preferred learning method(s) Outcome: Progressing Note: Evaluation of progress towards goal: Daily plan of care discussed with pt and all questions answered at this time. Problem: Discharge Planning Goal: Discharge to post-acute care, other facility, or home with appropriate resources Description: Patient's goal is: home INTERVENTIONS 1. Conduct assessment to determine patient/family and health care team treatment goals, and need for post-acute services based on payer coverage, community resources, and patient preferences, and barriers to discharge 2. Coordinate with Social work, Care Navigation, and Utilization Review to arrange appropriate level of services according to patient's needs based on patient preference and payer coverage in collaboration with the physician and health care team 3. Address psychosocial, clinical, and financial barriers to discharge as identified in assessment in conjunction with the patient/family and health care team 4. Consult appropriate ancillary services (i.e.. PT/OT/ST, etc) as needed 5. Communicate with and update the patient/family, physician, and health care team regarding progress on the discharge plan 6. Identify discharge learning needs (meds, wound care, etc). 7. Arrange for needed discharge transportation as appropriate Outcome: Progressing Note: Evaluation of progress towards goal: discharge planning in progress. Problem: Inadequate Airway Clearance Goal: Patient will maintain patent airway Description: INTERVENTIONS 1. Assess and monitor breath sounds, cough and sputum (if present) 2. Monitor respiratory rate and oxygen saturation 3. Collaborate with respiratory therapy to administer medication, oxygen, and suitable airway clearance techniques as ordered 4. Position patient for maximum ventilatory efficiency; elevate head of bed at least 30 degrees if appropriate 5. Provide adequate fluid intake to liquify secretions if appropriate 6. Suction secretions as indicated to maintain patent airway 7. Instruct patient to turn, cough, and deep breathe; encourage incentive spirometer if indicated Outcome: Progressing Note: Evaluation of progress towards goal: no sob at this time. Problem: Inadequate Breathing Pattern Goal: Patient will achieve/maintain normal respiratory rate/effort Description: Patient's goal is: INTERVENTIONS 1. Assess and monitor respiratory rate, effort, breathing pattern, and oxygenation 2. Monitor patient for restlessness, anxiety, air hunger 3. Assess physical activity tolerance 4. Assess tobacco history; ask, advise, and refer as appropriate 5. Collaborate with interdisciplinary team and initiate plans/interventions as needed Outcome: Progressing Note: Evaluation of progress towards goal: pt is having no difficulties breathing. Problem: Anxiety Goal: Anxiety is at manageable level Description: Patient's goal is: INTERVENTIONS 1. Assess and monitor patient's anxiety level 2. Monitor for signs and symptoms of anxiety both physical and emotional (heart palpitations, chestpain, shortness of breath, headaches, nausea, feeling jumpy, restlessness, irritable, apprehensive) 3. Reorient/orient patient to unit/surroundings 4. Explain treatment plan 5. Explain tests/procedures prior to initiation 6. Encourage participation in care 7. Encourage verbalization of concerns/fears 8. Assess coping mechanisms 9. Assist in developing anxiety-reducing skills 10. Administer complimentary therapies 11. Manage patient's environment 12. Limit or eliminate stimulants such as caffeine and nicotine 13. Collaborate with ancillary departments 14. Include patient/patient sales and merchandising representative in decisions related to anxiety Outcome: Progressing Note: Evaluation of progress towards goal: pt has no anxiety at this time. Problem: Inadequate Coping Goal: Demonstrates and verbalizes ability to cope effectively Description: Patient's goal is: INTERVENTIONS 1. Patient is able to verbalize feelings related to emotional state 2. Encourage verbalization of feelings, perceptions, fears, stressors, loss of loved ones 3. Encourage verbalization of problems out of their control 4. Encourage participation in care and self management 5. Inform patient of all treatment/care prior to providing care 6. Collaborate with pastoral/spiritual care, high school social studies tutor, mental health counselor as needed. 7. Instruct patient on diversional activities such as physical activity, distraction, and deep breathing exercises to assist with coping 8. Involve patient's sales and merchandising representative in care Outcome: Progressing Note: Evaluation of progress towards goal: pt having no complaints at this time. Problem: Metabolic/Fluid and Electrolytes - Adult Goal: Electrolytes maintained within normal limits Description: INTERVENTIONS 1. Monitor for signs and symptoms of hypovolemia (tachycardia, rapid breathing, decreased urine output, postural hypotension, sunken fontanel) 2. Monitor for signs and symptoms of hypervolemia (strong rapid pulse, rapid breathing, crackles heard in lung clark, edema, decreased urine output, sudden weight gain, distended neck veins in olderchildren, enlarged liver and spleen) 1. Monitor intake and output 2. Monitor pt's weight 1. Monitor labs and assess patient for signs and symptoms of electrolyte imbalances 2. Administer electrolyte replacement as ordered 3. Monitor response to electrolyte replacements, including repeat lab results as appropriate 4. Fluid restriction or hydration as ordered 5. Instruct patient/ legal sales and merchandising representative on nutrition/diet; fluid/hydration restrictions as appropriate Outcome: Progressing Note: Evaluation of progress towards goal: electrolytes replaced per scale at this time. [facility]10-05-2024 Plan of care note* Plan of Care - Skye Mary RN - 12/05/2023 2:02 AM EDT Problem: Low Risk Fall Score Description: Pickens Fall Score of 0 - 24 or indicated by [facility] Assessment Goal: Patient should be free from fall Description: Interventions: 1. [place] to environment 2. Hourly rounds addressing the 4 P's (Pain, Positioning, Possessions, Potty) 3. Clear area of hazards (spills, clutter, electrical cords, unnecessary equipment) 4. Place equipment (bed & TV controls, call light, phone, urinal) within reach 5. Encourage patient to wear glasses and hearing aides as appropriate 6. Maintain bed in lowest position 7. Lock wheels on bed/wheelchair 8. Provide adequate lighting, including night light 9. Assess need for additional bedding, food/fluids, pain med's prior to sleep/routinely 10. Provide gripper slippers or personal non-skid footwear 11. Teach patient and patient sales and merchandising representative to maintain environment for safety and engage in all aspects of fall prevention program Outcome: Progressing Note: Evaluation of progress towards goal: pt remains free from falls. Pt independent in room. Problem: Pain Goal: Patient goal is pain score less than 4, able to rest, and participant in treatment plan as appropriate Description: INTERVENTIONS: 1. Encourage patient or legal sales and merchandising representative to report early pain and ask for pain medicine when needed 2. Assess pain using appropriate pain scale and include the scale used when documenting 3. Administer analgesics based on type and severity of pain and evaluate response within appropriate time frame 4. Implement non-pharmacological measures as appropriate and evaluate response 5. Consider cultural and social influences on pain and pain management 6. Notify LIP if interventions ineffective or patient reports new pain 7. Monitor vital signs including pulse ox, end-tidal CO2 based on pain intervention 8. Reassess pain per policy 9. Teach patient or legal sales and merchandising representative interventions for comforting Outcome: Progressing Note: Evaluation of progress towards goal: pt denies any pain or discomfort. Problem: Safety Goal: Patient will be injury free during hospitalization Description: INTERVENTIONS: 1. Assess patient's risk for falls and implement fall prevention plan of care per policy 2. Provide and maintain a safe environment 3. Proper use of double Identifiers 4. Medication administration using the 5 rights 5. Hand hygiene 6. Specimens are labeled at the bedside 7. Instruct patient/ patient sales and merchandising representative about use of safety devices 8. Include patient/ patient sales and merchandising representative in decisions related to safety Outcome: Progressing Note: Evaluation of progress towards goal: pt remains free from injury. Problem: Infection Goal: Absence of infection during hospitalization Description: Interventions: 1. Assess and monitor for signs and symptoms of infection 2. Monitor lab/diagnostic results 3. Monitor all insertion sites i.e., indwelling lines, tubes and drains 4. Monitor endotracheal (as able) and nasal secretions for changes in amount and color 5. Administer medications as ordered 6. Instruct and encourage patient and family to use good hand hygiene technique 7. Identify and instruct patient/patient sales and merchandising representative in use of appropriate isolation precautionsfor identified infection/symptoms 8. Provide and discuss with patient/patient sales and merchandising representative on educational MDRO sheet 9. Encourage and monitor nutritional status daily and consult surveyor geophysical prospecting if indicated 10. Implement neutropenic guidelines as needed 11. Review exposure to history of communicable disease and recent travel history on admission 12. Encourage annual influenza vaccine 13. Encourage pneumonia vaccine Outcome: Progressing Note: Evaluation of progress towards goal: monitoring pt for s/s of infection. Hand hygiene performed. Problem: Knowledge Deficit Goal: Patient/patient sales and merchandising representative demonstrates understanding of disease process, treatment plan,medications, and discharge instructions Description: INTERVENTIONS 1. Complete learning assessment and assess knowledge base 2. Provide teaching at level of understanding 3. Provide teaching via preferred learning method(s) Outcome: Progressing Note: Evaluation of progress towards goal: pt verbalizes understanding of treatment and plan of care. All questions answered. Problem: Discharge Planning Goal: Discharge to post-acute care, other facility, or home with appropriate resources Description: Patient's goal is: home INTERVENTIONS 1. Conduct assessment to determine patient/family and health care team treatment goals, and need for post-acute services based on payer coverage, community resources, and patient preferences, and barriers to discharge 2. Coordinate with Social work, Care Navigation, and Utilization Review to arrange appropriate level of services according to patient's needs based on patient preference and payer coverage in collaboration with the physician and health care team 3. Address psychosocial, clinical, and financial barriers to discharge as identified in assessment in conjunction with the patient/family and health care team 4. Consult appropriate ancillary services (i.e.. PT/OT/ST, etc) as needed 5. Communicate with and update the patient/family, physician, and health care team regarding progress on the discharge plan 6. Identify discharge learning needs (meds, wound care, etc). 7. Arrange for needed discharge transportation as appropriate Outcome: Progressing Note: Evaluation of progress towards goal: discharge plan ongoing. Plan remains home. Problem: Inadequate Breathing Pattern Goal: Patient will achieve/maintain normal respiratory rate/effort Description: Patient's goal is: INTERVENTIONS 1. Assess and monitor respiratory rate, effort, breathing pattern, and oxygenation 2. Monitor patient for restlessness, anxiety, air hunger 3. Assess physical activity tolerance 4. Assess tobacco history; ask, advise, and refer as appropriate 5. Collaborate with interdisciplinary team and initiate plans/interventions as needed Outcome: Progressing Note: Evaluation of progress towards goal: pt remains on room air. Pt denies any shortness of breath. Problem: Anxiety Goal: Anxiety is at manageable level Description: Patient's goal is: INTERVENTIONS 1. Assess and monitor patient's anxiety level 2. Monitor for signs and symptoms of anxiety both physical and emotional (heart palpitations, chestpain, shortness of breath, headaches, nausea, feeling jumpy, restlessness, irritable, apprehensive) 3. Reorient/orient patient to unit/surroundings 4. Explain treatment plan 5. Explain tests/procedures prior to initiation 6. Encourage participation in care 7. Encourage verbalization of concerns/fears 8. Assess coping mechanisms 9. Assist in developing anxiety-reducing skills 10. Administer complimentary therapies 11. Manage patient's environment 12. Limit or eliminate stimulants such as caffeine and nicotine 13. Collaborate with ancillary departments 14. Include patient/patient sales and merchandising representative in decisions related to anxiety Outcome: Progressing Note: Evaluation of progress towards goal: pt denies any anxiety. Problem: Inadequate Coping Goal: Demonstrates and verbalizes ability to cope effectively Description: Patient's goal is: INTERVENTIONS 1. Patient is able to verbalize feelings related to emotional state 2. Encourage verbalization of feelings, perceptions, fears, stressors, loss of loved ones 3. Encourage verbalization of problems out of their control 4. Encourage participation in care and self management 5. Inform patient of all treatment/care prior to providing care 6. Collaborate with pastoral/spiritual care, high school social studies tutor, mental health counselor as needed. 7. Instruct patient on diversional activities such as physical activity, distraction, and deep breathing exercises to assist with coping 8. Involve patient's sales and merchandising representative in care Outcome: Progressing Note: Evaluation of progress towards goal: pt able to cope effectively. Problem: Metabolic/Fluid and Electrolytes - Adult Goal: Electrolytes maintained within normal limits Description: INTERVENTIONS 1. Monitor for signs and symptoms of hypovolemia (tachycardia, rapid breathing, decreased urine output, postural hypotension, sunken fontanel) 2. Monitor for signs and symptoms of hypervolemia (strong rapid pulse, rapid breathing, crackles heard in lung clark, edema, decreased urine output, sudden weight gain, distended neck veins in olderchildren, enlarged liver and spleen) 1. Monitor intake and output 2. Monitor pt's weight 1. Monitor labs and assess patient for signs and symptoms of electrolyte imbalances 2. Administer electrolyte replacement as ordered 3. Monitor response to electrolyte replacements, including repeat lab results as appropriate 4. Fluid restriction or hydration as ordered 5. Instruct patient/ legal sales and merchandising representative on nutrition/diet; fluid/hydration restrictions as appropriate Outcome: Progressing Note: Evaluation of progress towards goal: monitoring pt's labs and electrolytes. Replacing when needed. [email or web address] Plan of care note* Plan of Care - Claudia Masterson LPN - 12/04/2023 3:30 PM EDT Problem: Low Risk Fall Score Description: Pickens Fall Score of 0 - 24 or indicated by [facility] Assessment Goal: Patient should be free from fall Description: Interventions: 1. [place] to environment 2. Hourly rounds addressing the 4 P's (Pain, Positioning, Possessions, Potty) 3. Clear area of hazards (spills, clutter, electrical cords, unnecessary equipment) 4. Place equipment (bed & TV controls, call light, phone, urinal) within reach 5. Encourage patient to wear glasses and hearing aides as appropriate 6. Maintain bed in lowest position 7. Lock wheels on bed/wheelchair 8. Provide adequate lighting, including night light 9. Assess need for additional bedding, food/fluids, pain med's prior to sleep/routinely 10. Provide gripper slippers or personal non-skid footwear 11. Teach patient and patient sales and merchandising representative to maintain environment for safety and engage in all aspects of fall prevention program Outcome: Progressing Note: Evaluation of progress towards goal: fall precautions in place no falls at this time. Problem: Pain Goal: Patient goal is pain score less than 4, able to rest, and participant in treatment plan as appropriate Description: INTERVENTIONS: 1. Encourage patient or legal sales and merchandising representative to report early pain and ask for pain medicine when needed 2. Assess pain using appropriate pain scale and include the scale used when documenting 3. Administer analgesics based on type and severity of pain and evaluate response within appropriate time frame 4. Implement non-pharmacological measures as appropriate and evaluate response 5. Consider cultural and social influences on pain and pain management 6. Notify LIP if interventions ineffective or patient reports new pain 7. Monitor vital signs including pulse ox, end-tidal CO2 based on pain intervention 8. Reassess pain per policy 9. Teach patient or legal sales and merchandising representative interventions for comforting Outcome: Progressing Note: Evaluation of progress towards goal: pt denies pain at this time. Problem: Safety Goal: Patient will be injury free during hospitalization Description: INTERVENTIONS: 1. Assess patient's risk for falls and implement fall prevention plan of care per policy 2. Provide and maintain a safe environment 3. Proper use of double Identifiers 4. Medication administration using the 5 rights 5. Hand hygiene 6. Specimens are labeled at the bedside 7. Instruct patient/ patient sales and merchandising representative about use of safety devices 8. Include patient/ patient sales and merchandising representative in decisions related to safety Outcome: Progressing Note: Evaluation of progress towards goal: pt remains free from injury at this time. Problem: Infection Goal: Absence of infection during hospitalization Description: Interventions: 1. Assess and monitor for signs and symptoms of infection 2. Monitor lab/diagnostic results 3. Monitor all insertion sites i.e., indwelling lines, tubes and drains 4. Monitor endotracheal (as able) and nasal secretions for changes in amount and color 5. Administer medications as ordered 6. Instruct and encourage patient and family to use good hand hygiene technique 7. Identify and instruct patient/patient sales and merchandising representative in use of appropriate isolation precautionsfor identified infection/symptoms 8. Provide and discuss with patient/patient sales and merchandising representative on educational MDRO sheet 9. Encourage and monitor nutritional status daily and consult surveyor geophysical prospecting if indicated 10. Implement neutropenic guidelines as needed 11. Review exposure to history of communicable disease and recent travel history on admission 12. Encourage annual influenza vaccine 13. Encourage pneumonia vaccine Outcome: Progressing Note: Evaluation of progress towards goal: pt remains afebrile at this time. Problem: Knowledge Deficit Goal: Patient/patient sales and merchandising representative demonstrates understanding of disease process, treatment plan,medications, and discharge instructions Description: INTERVENTIONS 1. Complete learning assessment and assess knowledge base 2. Provide teaching at level of understanding 3. Provide teaching via preferred learning method(s) Outcome: Progressing Note: Evaluation of progress towards goal: daily plan of care discussed with pt and all questions answered at this time. Problem: Discharge Planning Goal: Discharge to post-acute care, other facility, or home with appropriate resources Description: Patient's goal is: home INTERVENTIONS 1. Conduct assessment to determine patient/family and health care team treatment goals, and need for post-acute services based on payer coverage, community resources, and patient preferences, and barriers to discharge 2. Coordinate with Social work, Care Navigation, and Utilization Review to arrange appropriate level of services according to patient's needs based on patient preference and payer coverage in collaboration with the physician and health care team 3. Address psychosocial, clinical, and financial barriers to discharge as identified in assessment in conjunction with the patient/family and health care team 4. Consult appropriate ancillary services (i.e.. PT/OT/ST, etc) as needed 5. Communicate with and update the patient/family, physician, and health care team regarding progress on the discharge plan 6. Identify discharge learning needs (meds, wound care, etc). 7. Arrange for needed discharge transportation as appropriate Outcome: Progressing Note: Evaluation of progress towards goal: discharge planning in progress. Problem: Inadequate Airway Clearance Goal: Patient will maintain patent airway Description: INTERVENTIONS 1. Assess and monitor breath sounds, cough and sputum (if present) 2. Monitor respiratory rate and oxygen saturation 3. Collaborate with respiratory therapy to administer medication, oxygen, and suitable airway clearance techniques as ordered 4. Position patient for maximum ventilatory efficiency; elevate head of bed at least 30 degrees if appropriate 5. Provide adequate fluid intake to liquify secretions if appropriate 6. Suction secretions as indicated to maintain patent airway 7. Instruct patient to turn, cough, and deep breathe; encourage incentive spirometer if indicated Outcome: Progressing Note: Evaluation of progress towards goal: no difficulties breathing at this time. Problem: Inadequate Breathing Pattern Goal: Patient will achieve/maintain normal respiratory rate/effort Description: Patient's goal is: INTERVENTIONS 1. Assess and monitor respiratory rate, effort, breathing pattern, and oxygenation 2. Monitor patient for restlessness, anxiety, air hunger 3. Assess physical activity tolerance 4. Assess tobacco history; ask, advise, and refer as appropriate 5. Collaborate with interdisciplinary team and initiate plans/interventions as needed Outcome: Progressing Note: Evaluation of progress towards goal: no sob at this time. Problem: Anxiety Goal: Anxiety is at manageable level Description: Patient's goal is: INTERVENTIONS 1. Assess and monitor patient's anxiety level 2. Monitor for signs and symptoms of anxiety both physical and emotional (heart palpitations, chestpain, shortness of breath, headaches, nausea, feeling jumpy, restlessness, irritable, apprehensive) 3. Reorient/orient patient to unit/surroundings 4. Explain treatment plan 5. Explain tests/procedures prior to initiation 6. Encourage participation in care 7. Encourage verbalization of concerns/fears 8. Assess coping mechanisms 9. Assist in developing anxiety-reducing skills 10. Administer complimentary therapies 11. Manage patient's environment 12. Limit or eliminate stimulants such as caffeine and nicotine 13. Collaborate with ancillary departments 14. Include patient/patient sales and merchandising representative in decisions related to anxiety Outcome: Progressing Note: Evaluation of progress towards goal: pt denies anxiety at this time. Problem: Inadequate Coping Goal: Demonstrates and verbalizes ability to cope effectively Description: Patient's goal is: INTERVENTIONS 1. Patient is able to verbalize feelings related to emotional state 2. Encourage verbalization of feelings, perceptions, fears, stressors, loss of loved ones 3. Encourage verbalization of problems out of their control 4. Encourage participation in care and self management 5. Inform patient of all treatment/care prior to providing care 6. Collaborate with pastoral/spiritual care, high school social studies tutor, mental health counselor as needed. 7. Instruct patient on diversional activities such as physical activity, distraction, and deep breathing exercises to assist with coping 8. Involve patient's sales and merchandising representative in care Outcome: Progressing Note: Evaluation of progress towards goal: no needs at this time. Problem: Metabolic/Fluid and Electrolytes - Adult Goal: Electrolytes maintained within normal limits Description: INTERVENTIONS 1. Monitor for signs and symptoms of hypovolemia (tachycardia, rapid breathing, decreased urine output, postural hypotension, sunken fontanel) 2. Monitor for signs and symptoms of hypervolemia (strong rapid pulse, rapid breathing, crackles heard in lung clark, edema, decreased urine output, sudden weight gain, distended neck veins in olderchildren, enlarged liver and spleen) 1. Monitor intake and output 2. Monitor pt's weight 1. Monitor labs and assess patient for signs and symptoms of electrolyte imbalances 2. Administer electrolyte replacement as ordered 3. Monitor response to electrolyte replacements, including repeat lab results as appropriate 4. Fluid restriction or hydration as ordered 5. Instruct patient/ legal sales and merchandising representative on nutrition/diet; fluid/hydration restrictions as appropriate Outcome: Progressing Note: Evaluation of progress towards goal: electrolytes within normal limits at this time. [facility]10-04-2024 Progress note* Discharge Planning Note - Mariah Gonsalez RN - 12/04/2023 1:07 PM EDT DISCHARGE PLANNING NOTE Case discussed in daily transition rounds and chart reviewed by CN. Barriers to discharge include elevated creatinine, awaiting cultures. Patient currently being treated with oral antibiotics. Met with patient at bedside and updated on plan of care. Discharge Plan remains: home. CN will continue to follow and is available should any further needs arise. - MARIAH GONSALEZ RN 12/04/23 1:08 PM [facility]10-04-2024 Plan of care note* Plan of Care - Skye Mary RN - 12/04/2023 12:43 AM EDT Problem: Low Risk Fall Score Description: Pickens Fall Score of 0 - 24 or indicated by [facility] Assessment Goal: Patient should be free from fall Description: Interventions: 1. [place] to environment 2. Hourly rounds addressing the 4 P's (Pain, Positioning, Possessions, Potty) 3. Clear area of hazards (spills, clutter, electrical cords, unnecessary equipment) 4. Place equipment (bed & TV controls, call light, phone, urinal) within reach 5. Encourage patient to wear glasses and hearing aides as appropriate 6. Maintain bed in lowest position 7. Lock wheels on bed/wheelchair 8. Provide adequate lighting, including night light 9. Assess need for additional bedding, food/fluids, pain med's prior to sleep/routinely 10. Provide gripper slippers or personal non-skid footwear 11. Teach patient and patient sales and merchandising representative to maintain environment for safety and engage in all aspects of fall prevention program Outcome: Progressing Note: Evaluation of progress towards goal: pt remains free from falls. Pt independent in room. Problem: Pain Goal: Patient goal is pain score less than 4, able to rest, and participant in treatment plan as appropriate Description: INTERVENTIONS: 1. Encourage patient or legal sales and merchandising representative to report early pain and ask for pain medicine when needed 2. Assess pain using appropriate pain scale and include the scale used when documenting 3. Administer analgesics based on type and severity of pain and evaluate response within appropriate time frame 4. Implement non-pharmacological measures as appropriate and evaluate response 5. Consider cultural and social influences on pain and pain management 6. Notify LIP if interventions ineffective or patient reports new pain 7. Monitor vital signs including pulse ox, end-tidal CO2 based on pain intervention 8. Reassess pain per policy 9. Teach patient or legal sales and merchandising representative interventions for comforting Outcome: Progressing Note: Evaluation of progress towards goal: pt denies any pain or discomfort. Problem: Safety Goal: Patient will be injury free during hospitalization Description: INTERVENTIONS: 1. Assess patient's risk for falls and implement fall prevention plan of care per policy 2. Provide and maintain a safe environment 3. Proper use of double Identifiers 4. Medication administration using the 5 rights 5. Hand hygiene 6. Specimens are labeled at the bedside 7. Instruct patient/ patient sales and merchandising representative about use of safety devices 8. Include patient/ patient sales and merchandising representative in decisions related to safety Outcome: Progressing Note: Evaluation of progress towards goal: pt remains free from injury. Problem: Infection Goal: Absence of infection during hospitalization Description: Interventions: 1. Assess and monitor for signs and symptoms of infection 2. Monitor lab/diagnostic results 3. Monitor all insertion sites i.e., indwelling lines, tubes and drains 4. Monitor endotracheal (as able) and nasal secretions for changes in amount and color 5. Administer medications as ordered 6. Instruct and encourage patient and family to use good hand hygiene technique 7. Identify and instruct patient/patient sales and merchandising representative in use of appropriate isolation precautionsfor identified infection/symptoms 8. Provide and discuss with patient/patient sales and merchandising representative on educational MDRO sheet 9. Encourage and monitor nutritional status daily and consult surveyor geophysical prospecting if indicated 10. Implement neutropenic guidelines as needed 11. Review exposure to history of communicable disease and recent travel history on admission 12. Encourage annual influenza vaccine 13. Encourage pneumonia vaccine Outcome: Progressing Note: Evaluation of progress towards goal: pt remains afebrile. Hand hygiene performed. Problem: Knowledge Deficit Goal: Patient/patient sales and merchandising representative demonstrates understanding of disease process, treatment plan,medications, and discharge instructions Description: INTERVENTIONS 1. Complete learning assessment and assess knowledge base 2. Provide teaching at level of understanding 3. Provide teaching via preferred learning method(s) Outcome: Progressing Note: Evaluation of progress towards goal: pt verbalizes understanding of treatment and plan of care. All questions answered. Problem: Discharge Planning Goal: Discharge to post-acute care, other facility, or home with appropriate resources Description: Patient's goal is: home INTERVENTIONS 1. Conduct assessment to determine patient/family and health care team treatment goals, and need for post-acute services based on payer coverage, community resources, and patient preferences, and barriers to discharge 2. Coordinate with Social work, Care Navigation, and Utilization Review to arrange appropriate level of services according to patient's needs based on patient preference and payer coverage in collaboration with the physician and health care team 3. Address psychosocial, clinical, and financial barriers to discharge as identified in assessment in conjunction with the patient/family and health care team 4. Consult appropriate ancillary services (i.e.. PT/OT/ST, etc) as needed 5. Communicate with and update the patient/family, physician, and health care team regarding progress on the discharge plan 6. Identify discharge learning needs (meds, wound care, etc). 7. Arrange for needed discharge transportation as appropriate Outcome: Progressing Note: Evaluation of progress towards goal: discharge plan ongoing. Problem: Metabolic/Fluid and Electrolytes - Adult Goal: Electrolytes maintained within normal limits Description: INTERVENTIONS 1. Monitor for signs and symptoms of hypovolemia (tachycardia, rapid breathing, decreased urine output, postural hypotension, sunken fontanel) 2. Monitor for signs and symptoms of hypervolemia (strong rapid pulse, rapid breathing, crackles heard in lung clark, edema, decreased urine output, sudden weight gain, distended neck veins in olderchildren, enlarged liver and spleen) 1. Monitor intake and output 2. Monitor pt's weight 1. Monitor labs and assess patient for signs and symptoms of electrolyte imbalances 2. Administer electrolyte replacement as ordered 3. Monitor response to electrolyte replacements, including repeat lab results as appropriate 4. Fluid restriction or hydration as ordered 5. Instruct patient/ legal sales and merchandising representative on nutrition/diet; fluid/hydration restrictions as appropriate Outcome: Progressing Note: Evaluation of progress towards goal: monitoring pt's labs and electrolytes. Replacing when needed. [facility] Stat [id number] Plan of care note* Plan of Care - Claudia Masterson LPN - 12/03/2023 5:13 PM EDT Problem: Low Risk Fall Score Description: Pickens Fall Score of 0 - 24 or indicated by [facility] Assessment Goal: Patient should be free from fall Description: Interventions: 1. [place] to environment 2. Hourly rounds addressing the 4 P's (Pain, Positioning, Possessions, Potty) 3. Clear area of hazards (spills, clutter, electrical cords, unnecessary equipment) 4. Place equipment (bed & TV controls, call light, phone, urinal) within reach 5. Encourage patient to wear glasses and hearing aides as appropriate 6. Maintain bed in lowest position 7. Lock wheels on bed/wheelchair 8. Provide adequate lighting, including night light 9. Assess need for additional bedding, food/fluids, pain med's prior to sleep/routinely 10. Provide gripper slippers or personal non-skid footwear 11. Teach patient and patient sales and merchandising representative to maintain environment for safety and engage in all aspects of fall prevention program Outcome: Progressing Note: Evaluation of progress towards goal: fall precautions in place, pt remains free from falls atthis time. Problem: Pain Goal: Patient goal is pain score less than 4, able to rest, and participant in treatment plan as appropriate Description: INTERVENTIONS: 1. Encourage patient or legal sales and merchandising representative to report early pain and ask for pain medicine when needed 2. Assess pain using appropriate pain scale and include the scale used when documenting 3. Administer analgesics based on type and severity of pain and evaluate response within appropriate time frame 4. Implement non-pharmacological measures as appropriate and evaluate response 5. Consider cultural and social influences on pain and pain management 6. Notify LIP if interventions ineffective or patient reports new pain 7. Monitor vital signs including pulse ox, end-tidal CO2 based on pain intervention 8. Reassess pain per policy 9. Teach patient or legal sales and merchandising representative interventions for comforting Outcome: Progressing Note: Evaluation of progress towards goal: pt continues to have a headache, improved with prn medications. Problem: Safety Goal: Patient will be injury free during hospitalization Description: INTERVENTIONS: 1. Assess patient's risk for falls and implement fall prevention plan of care per policy 2. Provide and maintain a safe environment 3. Proper use of double Identifiers 4. Medication administration using the 5 rights 5. Hand hygiene 6. Specimens are labeled at the bedside 7. Instruct patient/ patient sales and merchandising representative about use of safety devices 8. Include patient/ patient sales and merchandising representative in decisions related to safety Outcome: Progressing Note: Evaluation of progress towards goal: pt remains free from injury at this time. Problem: Infection Goal: Absence of infection during hospitalization Description: Interventions: 1. Assess and monitor for signs and symptoms of infection 2. Monitor lab/diagnostic results 3. Monitor all insertion sites i.e., indwelling lines, tubes and drains 4. Monitor endotracheal (as able) and nasal secretions for changes in amount and color 5. Administer medications as ordered 6. Instruct and encourage patient and family to use good hand hygiene technique 7. Identify and instruct patient/patient sales and merchandising representative in use of appropriate isolation precautionsfor identified infection/symptoms 8. Provide and discuss with patient/patient sales and merchandising representative on educational MDRO sheet 9. Encourage and monitor nutritional status daily and consult surveyor geophysical prospecting if indicated 10. Implement neutropenic guidelines as needed 11. Review exposure to history of communicable disease and recent travel history on admission 12. Encourage annual influenza vaccine 13. Encourage pneumonia vaccine Outcome: Progressing Note: Evaluation of progress towards goal: pt remains afebrile at this time. Problem: Knowledge Deficit Goal: Patient/patient sales and merchandising representative demonstrates understanding of disease process, treatment plan,medications, and discharge instructions Description: INTERVENTIONS 1. Complete learning assessment and assess knowledge base 2. Provide teaching at level of understanding 3. Provide teaching via preferred learning method(s) Outcome: Progressing Note: Evaluation of progress towards goal: daily plan of care discussed with pt and all questions answered at this time. Problem: Discharge Planning Goal: Discharge to post-acute care, other facility, or home with appropriate resources Description: Patient's goal is: home INTERVENTIONS 1. Conduct assessment to determine patient/family and health care team treatment goals, and need for post-acute services based on payer coverage, community resources, and patient preferences, and barriers to discharge 2. Coordinate with Social work, Care Navigation, and Utilization Review to arrange appropriate level of services according to patient's needs based on patient preference and payer coverage in collaboration with the physician and health care team 3. Address psychosocial, clinical, and financial barriers to discharge as identified in assessment in conjunction with the patient/family and health care team 4. Consult appropriate ancillary services (i.e.. PT/OT/ST, etc) as needed 5. Communicate with and update the patient/family, physician, and health care team regarding progress on the discharge plan 6. Identify discharge learning needs (meds, wound care, etc). 7. Arrange for needed discharge transportation as appropriate Outcome: Progressing Note: Evaluation of progress towards goal: discharge planning in progress. Problem: Inadequate Airway Clearance Goal: Patient will maintain patent airway Description: INTERVENTIONS 1. Assess and monitor breath sounds, cough and sputum (if present) 2. Monitor respiratory rate and oxygen saturation 3. Collaborate with respiratory therapy to administer medication, oxygen, and suitable airway clearance techniques as ordered 4. Position patient for maximum ventilatory efficiency; elevate head of bed at least 30 degrees if appropriate 5. Provide adequate fluid intake to liquify secretions if appropriate 6. Suction secretions as indicated to maintain patent airway 7. Instruct patient to turn, cough, and deep breathe; encourage incentive spirometer if indicated Outcome: Progressing Note: Evaluation of progress towards goal: no issues breathing at this time. Problem: Inadequate Breathing Pattern Goal: Patient will achieve/maintain normal respiratory rate/effort Description: Patient's goal is: INTERVENTIONS 1. Assess and monitor respiratory rate, effort, breathing pattern, and oxygenation 2. Monitor patient for restlessness, anxiety, air hunger 3. Assess physical activity tolerance 4. Assess tobacco history; ask, advise, and refer as appropriate 5. Collaborate with interdisciplinary team and initiate plans/interventions as needed Outcome: Progressing Note: Evaluation of progress towards goal: no sob at this time. Problem: Anxiety Goal: Anxiety is at manageable level Description: Patient's goal is: INTERVENTIONS 1. Assess and monitor patient's anxiety level 2. Monitor for signs and symptoms of anxiety both physical and emotional (heart palpitations, chestpain, shortness of breath, headaches, nausea, feeling jumpy, restlessness, irritable, apprehensive) 3. Reorient/orient patient to unit/surroundings 4. Explain treatment plan 5. Explain tests/procedures prior to initiation 6. Encourage participation in care 7. Encourage verbalization of concerns/fears 8. Assess coping mechanisms 9. Assist in developing anxiety-reducing skills 10. Administer complimentary therapies 11. Manage patient's environment 12. Limit or eliminate stimulants such as caffeine and nicotine 13. Collaborate with ancillary departments 14. Include patient/patient sales and merchandising representative in decisions related to anxiety Outcome: Progressing Note: Evaluation of progress towards goal: pt denies anxiety at this time. Problem: Inadequate Coping Goal: Demonstrates and verbalizes ability to cope effectively Description: Patient's goal is: INTERVENTIONS 1. Patient is able to verbalize feelings related to emotional state 2. Encourage verbalization of feelings, perceptions, fears, stressors, loss of loved ones 3. Encourage verbalization of problems out of their control 4. Encourage participation in care and self management 5. Inform patient of all treatment/care prior to providing care 6. Collaborate with pastoral/spiritual care, high school social studies tutor, mental health counselor as needed. 7. Instruct patient on diversional activities such as physical activity, distraction, and deep breathing exercises to assist with coping 8. Involve patient's sales and merchandising representative in care Outcome: Progressing Note: Evaluation of progress towards goal: pt denies needs at this time. Problem: Metabolic/Fluid and Electrolytes - Adult Goal: Electrolytes maintained within normal limits Description: INTERVENTIONS 1. Monitor for signs and symptoms of hypovolemia (tachycardia, rapid breathing, decreased urine output, postural hypotension, sunken fontanel) 2. Monitor for signs and symptoms of hypervolemia (strong rapid pulse, rapid breathing, crackles heard in lung clark, edema, decreased urine output, sudden weight gain, distended neck veins in olderchildren, enlarged liver and spleen) 1. Monitor intake and output 2. Monitor pt's weight 1. Monitor labs and assess patient for signs and symptoms of electrolyte imbalances 2. Administer electrolyte replacement as ordered 3. Monitor response to electrolyte replacements, including repeat lab results as appropriate 4. Fluid restriction or hydration as ordered 5. Instruct patient/ legal sales and merchandising representative on nutrition/diet; fluid/hydration restrictions as appropriate Outcome: Progressing Note: Evaluation of progress towards goal: electrolytes continue to need replacement at this time. [facility]10-03-2024 History of Present illness Narrative* AMEENA Vallejo - 12/03/2023 4:23 PM EDT Patient's insurance not accepted over [facility]. Referral sent to [facility] who reportedly cannotsee her until Dec/Jan. Spoke with patient who requested a referral be sent to [facility]. AMEENA Vallejo 12/03/23 1629 [facility] Consult note* Shanon Joe MD - 12/03/2023 4:08 PM EDTAssociated Order(s): IP CONSULT TO CARDIOLOGY Reason for consult: Abnormal ECG History of present illness: The patient is a 53-year-old woman. She was admitted to [facility] December 03, 2023. She reports having fevers and feeling unwell. She has been undergoing treatmentfor breast cellulitis. She denies any chest discomfort or dyspnea. She has no palpitations. She normally follows with Dr. Clint Villanueva of [facility] Allergies: Meperidine, daptomycin, adhesive Medications: Apixaban 5 mg twice daily, ciprofloxacin 500 mg orally daily, clarithromycin, metoprolol succinate 100 mg daily Past medical history: Significant for breast cancer, prior deep venous thrombosis, hypertension, lymphedema Physical examination Vitals: Blood pressure 130/79, heart rate 76 Cardiovascular: S1, S2. Regular. Respiratory: Vesicular breath sound Abdomen: Soft Labs: White blood cell count 5.8, hemoglobin 8.0, platelet count [id number]. Sodium 137, potassium 3.1,chloride 104, bicarb 25, BUN 25, creatinine 2.49. Notably creatinine on November 30, 2023 was 0.62. 12 lead electrocardiogram reveals sinus rhythm with a nonspecific ST abnormality. Notably significant artifact limits interpretation. A right heart catheterization performed on October 27, 2023 revealed normal filling pressures, with a mean pulmonary artery pressure 13 mm Hg and a cardiac index of 3.6 l/min/m2. An echocardiogram performed on September 11, 2023 revealed an ejection fraction of 55-60%. No significant valvular disease was noted. Right ventricular systolic pressure was estimated to be 50 mm Hg. On October 14, 2022 she underwent a coronary artery calcium score. Her calcium score was 0. Impression 1. Hypertension. Blood pressure is controlled 2. No other significant cardiac abnormalities noted. Patient has had an extensive cardiac workup recently Recommendations 1. No additional cardiac testing is needed during this hospital stay. Cardiology will sign off. Please call with further questions. Following hospital discharge the patient will follow up with her primary inductor tester Dr. Clint Villanueva. [email or web address] Work Phone: [phone]) 643-238710-03-2024 Consult note* Shanon Joe MD - 12/03/2023 4:08 PM EDTAssociated Order(s): IP CONSULT TO CARDIOLOGY Reason for consult: Abnormal ECG History of present illness: The patient is a 53-year-old woman. [facility] She reports having fevers and feeling unwell. She has been undergoing treatmentfor breast cellulitis. She denies any chest discomfort or dyspnea. She has no palpitations. She normally follows with Dr. Clint Villanueva of [facility] Allergies: Meperidine, daptomycin, adhesive Medications: Apixaban 5 mg twice daily, ciprofloxacin 500 mg orally daily, clarithromycin, metoprolol succinate 100 mg daily Past medical history: Significant for breast cancer, prior deep venous thrombosis, hypertension, lymphedema Physical examination Vitals: Blood pressure 130/79, heart rate 76 Cardiovascular: S1, S2. Regular. Respiratory: Vesicular breath sound Abdomen: Soft Labs: White blood cell count 5.8, hemoglobin 8.0, platelet count [id number]. Sodium 137, potassium 3.1,chloride 104, bicarb 25, BUN 25, creatinine 2.49. Notably creatinine on November 30, 2023 was 0.62. 12 lead electrocardiogram reveals sinus rhythm with a nonspecific ST abnormality. Notably significant artifact limits interpretation. A right heart catheterization performed on October 27, 2023 revealed normal filling pressures, with a mean pulmonary artery pressure 13 mm Hg and a cardiac index of 3.6 l/min/m2. An echocardiogram performed on September 11, 2023 revealed an ejection fraction of 55-60%. No significant valvular disease was noted. Right ventricular systolic pressure was estimated to be 50 mm Hg. On October 14, 2022 she underwent a coronary artery calcium score. Her calcium score was 0. Impression 1. Hypertension. Blood pressure is controlled 2. No other significant cardiac abnormalities noted. Patient has had an extensive cardiac workup recently Recommendations 1. No additional cardiac testing is needed during this hospital stay. Cardiology will sign off. Please call with further questions. Following hospital discharge the patient will follow up with her primary inductor tester Dr. Clint Villanueva. * Carlene Noguera MD - 12/03/2023 2:03 PM EDTAssociated Order(s): IP CONSULT TO INFECTIOUS DISEASES Images from the original note were not included. [facility] - Initial Consult Note Ike Jones Admit date/time 12/02/2023 9:55 PM Today's Date and Time: 12/03/2023, 2:03 PM Impression: Left breast cellulitis Postop infection of left breast tissue tortilla maker-culture growing acid-fast bacilli Acute kidney injury History of breast cancer S/p bilateral mastectomies S/p bilateral breast reconstruction October 28, 2023 History of DVT-on Eliquis Presence of Port-A-Cath Recommendations Blood cultures in process Urine culture in process Nephrology consulted for acute kidney injury Consult cardiology for EKG finding Aspirate cultures(left breast) from 11/27/2023 Preliminarily with acid-fast bacilli Vancomycin and Invanz discontinued Start ciprofloxacin and clarithromycin for acid-fast bacilli coverage QTC 413 Follow CBC and renal function WBC 5.8, creatinine 2.49 Follow temperatures Supportive care Ambulatory ref[facility] to Infectious [facility] at [facility], [facility] acid-fast bacilli. Patient was notified by [facility] that she can not use her insurance over [facility] line. We will send referral per patient request to [facility]. Reason for consultation: Infection on IV antibiotics, established patient Chief complaint Postop problem History of Present Illness: Ike Jones is a 53 y.o.-year-old female who was initially admitted on 12/02/2023. Patient presents to hospital with complaints fever, chills, and vomiting. Patient was recently admitted and discharged from [facility] after removal of infected tissue tortilla maker. She was discharged home on Vancomycin and Ertapenem to continue tentatively until December 08. Patient was seen at [facility] for lab draw. Last night, we were notified that creatinine was 2.56 and vanco trough 33. Patient also complaining nausea, fever, and chills and was advised to go to ER. Left breast cultures from previous admission are preliminarily growing acid-fast bacilli. Referralshave been made to [facility], and [facility] for management/treatment. Per patient, [facility] notified her today and stated they cannot accept her insurance. [facility] cannot see her until December or January. Will place referral to [facility] per patient request. Patient states she feels better today with no further nausea or vomiting.. WBC stable. Denies any cough or shortness of breath. Pain is stable I have personally reviewed the past medical history, past surgical history, medications, social history, and family history, and I have updated the database accordingly. Past Medical History: Past Medical History: Diagnosis Date Breast cancer ([facility]) 2023 mammary carcinoma Deep vein thrombosis ([facility]) 09/18/2023 Left calf Hypertension Knee pain PONV (postoperative nausea and vomiting) Port-A-Cath in place 05/13/2023 Visual impairment Glasses Past Surgical History: Past Surgical History: Procedure Laterality Date ARTHROSCOPIC REPAIR ACL Right 2006 ARTHROSCOPIC REPAIR ACL Left 08/26/2021 BREAST BIOPSY Right 2023 mammary carcinoma EXCISION LYMPH NODE AXILLARY DISSECTION Right 10/28/2023 Performed by Christy He MD at [facility] SURGERY HYSTERECTOMY IMMEDIATE BREAST RECONSTRUCTION WITH TISSUE SMELTER CHARGER PLACEMENT Bilateral 10/28/2023 Performed by Jhon Rosado MD at [facility] INCISION DRAINAGE BREAST Left 11/27/2023 Performed by Jhon Rosado MD at [facility] MAGNETIC SEED LOCALIZATION EXCISION/BIOPSY MASS BREAST (MAG SEED LOCALIZED TARGETED DISSECTION FOR RETRIEVAL OF PREVIOUSLY CLIPPED LYMPH NODE) Right 10/28/2023 Performed by Christy He MD at [facility] MASTECTOMY BREAST SIMPLE RISK REDUCING SKIN SPARING Left 10/28/2023 Performed by Christy He MD at [facility] MASTECTOMY BREAST SIMPLE SKIN SPARING Right 10/28/2023 Performed by Christy He MD at [facility] MENISCECTOMY Bilateral 2022 PORTACATH PLACEMENT Left left chest REMOVAL SMELTER CHARGER TISSUE BREAST Left 11/27/2023 Performed by Jhon Rosado MD at [facility] RIGHT AXILLARY PROPHYLACTIC BYPASS LYMPHOVENOUS Right 10/28/2023 Performed by Jhon Rosado MD at [facility] TONSILLECTOMY AND ADENOIDECTOMY Age 3 TUMOR REMOVAL back-benign Medications: apixaban, 5 mg, oral, BID ciprofloxacin HCl, 500 mg, oral, Q24H RADHA clarithromycin, 500 mg, oral, Q12H RADHA metoprolol succinate XL, 100 mg, oral, Daily sodium chloride, 3 mL, intravenous, Q12H RADHA Social History: Social History Socioeconomic History Marital status: Spouse name: Not on file Number of children: Not on file Years of education: Not on file Highest education level: Some college, no degree Occupational History Not on file Tobacco Use Smoking status: Never Smokeless tobacco: Never Vaping Use Vaping status: Never Used Substance and Sexual Activity Alcohol use: Yes Comment: Socially Drug use: Never Sexual activity: Not on file Other Topics Concern Not on file Social History Narrative Not on file Social Determinants of Health Financial Resource Strain: Low Risk (02/27/2022) Overall Financial Resource Strain (CARDIA) Difficulty of Paying Living Expenses: Not hard at all Food Insecurity: No Food Insecurity (12/03/2023) Hunger Screening Food Insecurity - Worry: Never True Food Insecurity - Inability: Never True Transportation Needs: No Transportation Needs (12/03/2023) PRAPARE - Transportation Lack of Transportation (Medical): No Lack of Transportation (Non-Medical): No Physical Activity: Sufficiently Active (02/27/2022) Exercise Vital Sign Days of Exercise per Week: 3 days Minutes of Exercise per Session: 60 min Stress: Stress Concern Present (02/27/2022) [place] Citizen [place] [employer] Occupational Health - Occupational Stress Questionnaire Feeling of Stress : To some extent Social Connections: Socially Integrated (02/27/2022) Social Connection and Isolation Panel [NHANES] Frequency of Communication with Friends and Family: Twice a week Frequency of Social Gatherings with Friends and Family: Three times a week Attends Gnosticist Services: More than 4 times per year Active Member of Clubs or Organizations: Yes Attends Club or Organization Meetings: 1 to 4 times per year Marital Status: Interpersonal Safety: Not At Risk (12/03/2023) Humiliation, Afraid, Rape, and Kick questionnaire Fear of Current or Ex-Partner: No Emotionally Abused: No Physically Abused: No Sexually Abused: No Housing Instability: Low Risk (12/03/2023) Housing Instability Housing Instability: No Family History: Family History Adopted: Yes Allergies: Meperidine, Daptomycin, and Adhesive Review of Systems: Review of Systems Constitutional: Positive for fever, chills and appetite change. HENT: Negative. Eyes: Negative. Respiratory: Negative. Cardiovascular: Negative. Gastrointestinal: Positive for nausea and vomiting. Endocrine: Negative. Genitourinary: Negative. Musculoskeletal: Negative. Skin: Negative. Allergic/Immunologic: Negative. Neurological: Negative. Hematological: Negative. Physical Examination : BP 139/79 Pulse 76 Temp 36.7 C (98.1 F) (Oral) Resp 19 Ht 180.3 cm (5' 11 ) Wt 97.3 kg (214 lb 8.1 oz) SpO2 98% BMI 29.92 kg/m Temperature Range: Temp: 36.7 C (98.1 F) Temp Av.9 C (98.5 F) Min: 36.7 C (98.1 F) Max: 37.3 C (99.1 F) Physical Exam Constitutional She is oriented to person, place, and time. She appears well- developed and well-nourished. No distress. HENT Head Normocephalic and atraumatic. Ears Right Ear: External ear normal. Left Ear: External ear normal. Nose Nose normal. Mouth/Throat Throat: Oropharynx: oropharynx clear and moist Eyes: Conjunctivae and EOM are normal. Pupils are equal, round, and reactive to light. Neck Normal range of motion. Neck supple. Cardiovascular: Normal rate and regular rhythm. Pulses: intact distal pulses Heart Sounds: normal heart sounds. Pulmonary/Chest: Effort normal and breath sounds normal. Lines/drains present? yes Abdominal: Bowel sounds are normal. She exhibits no distension. Soft. Musculoskeletal: General: No tenderness or edema. Normal range of motion. Cervical back: Normal range of motion and neck supple. Lymph System normal. Neurological She is alert and oriented to person, place, and time. She has normal reflexes. Skin: Skin is warm and dry. No rash noted. Psychiatric: She has a normal mood and affect. Medical Decision Making: I have independently reviewed/ordered the following labs: CBC with Differential: Results from last 7 days Lab Units 12/03/23 0350 12/02/23221211/30/23 0930 WBC X10E9/L 5.8 7.8 6.5 HEMOGLOBIN g/dL 8.0* 9.1* 8.8* HEMATOCRIT % 22.9* 26.0* 25.2* PLATELETS X10E9/L 233 279 294 BMP: Results from last 7 days Lab Units 12/03/23 1220 12/03/23 0350 12/02/23221211/30/23 0930 POTASSIUM mmol/L 3.6 3.1* 3.2* 3.3* CHLORIDE mmol/L -- 104 99 105 CO2 mmol/L -- 25 25 29 BUN mg/dL -- 25* 27* 9 CREATININE mg/dL -- 2.49* 2.52* 0.62 EGFR (CKD-EPI)NON-RACE DEPENDENT ml/min/1.73sq.m -- 23* 22* >90 CALCIUM mg/dL -- 9.2 9.8 9.6 MAGNESIUM mg/dL 2.2 1.5* -- -- LFTs: Results from last 7 days Lab Units 12/03/23 0350 12/02/232212 ALK PHOS U/L 60 69 ALT U/L 10 12 AST U/L 19 24 Vanco: Inflam markers: Lab Results Component Value Date CRP 2.6 (H) 11/26/2023 Lab Results Component Value Date SEDRATE 30 11/26/2023 Cultures: Microbiology Results Procedure Component Value Units Date/Time Urine culture [[id number]] Collected: 12/02/23 2341 Specimen: Urine Updated: 12/03/23 0829 Blood culture [[id number]] Collected: 12/02/232235 Specimen: Blood, Peripheral Draw Updated: 12/02/232235 Blood culture [[id number]] Collected: 12/02/232235 Specimen: Blood, Peripheral Draw Updated: 12/02/232235 Anaerobic culture [[id number]] Collected: 11/27/23 154 Specimen: Body Fluid from Breast, Left Updated: 12/02/23 0851 Specimen Notes SPECIMEN A Culture NO GROWTH 5 DAYS Fungal culture includes fungal smear [[id number]] Collected: 11/27/23 1548 Specimen: Body Fluid from Breast, Left Updated: 11/28/23 0702 Specimen Notes SPECIMEN A Fungal smear -- NO FUNGAL ELEMENTS SEEN ON DIRECT SMEAR Culture PENDING AFB culture concentrated includes AFB smear [[id number]] (Abnormal) Collected: 11/27/23 1548 Specimen: Body Fluid from Breast, Left Updated: 12/01/23 1056 Specimen Notes SPECIMEN A AFB Smear NO ACID FAST BACILLI (CONCENTRATED SMEAR) Culture ACID FAST BACILLI ISOLATED Aspirate culture includes gram stain [[id number]] (Abnormal) Collected: 11/27/23 1548 Specimen: Aspirate Atr Updated: 12/01/23 1544 Specimen Notes SPECIMEN A Gram Stain Result >25 WHITE BLOOD CELLS/LPF 0 SQUAMOUS EPITHELIAL CELLS/LPF NO ORGANISMS SEEN Culture MODERATE ACID FAST BACILLI ISOLATED REPORT UPDATED GROWTH OBSERVED AT 48 HOURS Mrsa Pcr nasal swab [[id number]] Collected: 11/27/23 0020 Specimen: Nasal Updated: 11/27/23 0957 Mrsa PCR Negative Blood culture [[id number]] Collected: 11/26/23 1715 Specimen: Blood Updated: 12/01/232007 Culture NO GROWTH 5 DAYS Imaging Studies: No results found. Gino Munguia APRN, GARMENT STEAMER [phone] Thank you for allowing us to participate in the care of this patient. Please call with questions. Gino Munguia APRN-[facility] 12/03/23 1419 Carlene Landon MD, personally performed [id number] diagnostic evaluation on this patient I reviewed and performed all the ross component of the patient visit I reviewed CELINA history, exam and MDM - Carlene Noguera MD 12/03/23 3:19 PM * Epifanio Henry MD - 12/03/2023 12:13 PM EDTAssociated Order(s): Consult Nephrology Images from the original note were not included. Consult Nephrology Consult performed by: Epifanio Henry MD Consult ordered by: Chris Mcmullen PA-C NEPHROLOGY CONSULT NOTE Date of Admission: 12/02/2023 9:55 PM Reason for Consult: Acute kidney injury Referring Provider: Chris Mcmullen PA-C PCP: AMEENA DIAZ Chief Complaint: Fevers History of Present Illness: Ike Jones is a 53 y.o. female who presented with the above chief complaint. The patient was recently discharged from the hospital after removal of breast tortilla maker secondary to infection. She was discharged on IV vancomycin and IV imipenem. She has started to have fevers overnight. She presented to emergency room. She was found to have acute kidney injury with a creatinine of 2.5 compared to his 0.6 from November 29. Creatinine from today is about 2.5. We were consulted for evaluation of the acute kidney injury in the setting of the above. The patient denies any history recurrent UTIs or kidney stones. She is adopted and she will she does not know if she does have a genetic risk factor for kidney disease or dialysis. Denies any pain orburning on urination difficulty passing urine. Denies any frequent intake of NSAIDs. Denies any other recent illnesses, surgeries or procedures except for the removal of the breast tortilla maker and the IV antibiotics for the infection. Past Medical and Surgical History: Acute kidney injury which could related to Acute Tubular Necrosis secondary to sepsis versus vancomycin nephrotoxicity versus volume depletion secondary to poor p.o. intake in the setting of ongoing intake of chlorthalidone, Lasix, lisinopril and spironolactone. From December of 2023 Renal ultrasound, CPK, serum protein electrophoresis, JUSTIN, anti MPO, PR3, anti-GBM, C3, C4, urine dipstick and urine protein to creatinine ratio as well as fractional excretion of sodium are pending. Left breast cellulitis with infected seroma status post removal of left breast tortilla maker on November 27, 2023 Hypertension Edema Depression/anxiety DVT Right-sided breast cancer status post bilateral mastectomy with a lymph node dissection with subsequent bilateral breast reconstruction on October 28, 2023 MediPort placement Bilateral knee arthroscopy Tonsillectomy and adenoidectomy Allergies: Allergies Allergen Reactions Meperidine Facial Swelling Daptomycin Flushing Adhesive Rash Home Meds: Medications Prior to Admission Medication Sig Dispense Refill Last Dose acetaminophen (TYLENOL EXTRA STRENGTH) 500 mg tablet Take 2 tablets (1,000 mg total) by mouth every8 (eight) hours as needed for pain. 12/02/2023 albuterol (PROVENTIL,VENTOLIN) 2.5 mg /3 mL (0.083 %) nebulizer solution Inhale 3 mL (2.5 mg total)by nebulization every 6 (six) hours as needed for wheezing. 75 mL 1 Other - as prescribed chlorthalidone (HYGROTON) 25 mg tablet Take 0.5 tablets (12.5 mg total) by mouth daily. 12/02/2023 cyclobenzaprine (FLEXERIL) 10 mg tablet TAKE ONE TABLET BY MOUTH ONCE DAILY IN THE EVENING 30 tablet 11 12/02/2023 DULoxetine (CYMBALTA) 30 mg capsule Take 1 capsule (30 mg total) by mouth once daily at bedtime. 12/02/2023 ELIQUIS 5 mg tablet Take 1 tablet (5 mg total) by mouth in the morning and 1 tablet (5 mg total) before bedtime. Indications: blood clot in a deep vein of the extremities. 12/02/2023 ertapenem 1,000 mg in sodium chloride 0.9 % 50 mL IVPB MINI-BAG Plus Infuse 1,000 mg into a venous catheter daily for 10 days. 1 each 0 12/02/2023 fluticasone propionate (FLONASE) 50 mcg/actuation nasal spray Other - as prescribed furosemide (LASIX) 20 mg tablet Take 1 tablet (20 mg total) by mouth daily. 12/02/2023 KLOR-CON 20 mEq packet Take 1 packet (20 mEq total) by mouth in the morning. Past Week lidocaine-prilocaine (EMLA) cream Apply 1 Application topically as needed for pain. Past Week lisinopriL (PRINIVIL,ZESTRIL) 20 mg tablet Take 1 tablet (20 mg total) by mouth in the morning. 12/02/2023 magnesium oxide 400 mg magnesium tablet Take 400 mg by mouth in the morning. 12/02/2023 metoprolol succinate XL (TOPROL XL) 100 mg 24 hr tablet Take 1 tablet (100 mg total) by mouth in the morning. 12/02/2023 oxyCODONE (ROXICODONE) 5 mg immediate release tablet Take 1 tablet (5 mg total) by mouth every 4 (four) hours as needed for pain for up to 5 days. Max Daily Amount: 30 mg 12 tablet 0 Past Week spironolactone (ALDACTONE) 25 mg tablet Take 1 tablet (25 mg total) by mouth in the morning. 12/02/2023 traZODone (DESYREL) 50 mg tablet TAKE ONE TABLET BY MOUTH ONCE DAILY AT NIGHT 90 tablet 1 12/02/2023 vancomycin 1,500 mg in sodium chloride 0.9 % 500 mL IVPB Infuse 1,500 mg into a venous catheter every 12 (twelve) hours for 10 days. 1 each 0 12/02/2023 capecitabine (XELODA) 500 mg chemo tablet Take by mouth after surgery (Patient not taking: Reportedon 10/16/2023) More than a month dexAMETHasone (DECADRON) 1 mg tablet TAKE ONE TABLET BY MOUTH TWICE A DAY ON DAYS 3-6 AFTER CHEMOTHERAPY FOR FATIGUE (Patient not taking: Reported on 10/16/2023) More than a month diazePAM (VALIUM) 5 mg tablet Take 1 tablet (5 mg total) by mouth every 6 (six) hours as needed formuscle spasms. (Patient not taking: Reported on 12/03/2023) 18 tablet 0 More than a month ferrous sulfate 325 (65 FE) mg tablet Take 1 tablet (325 mg total) by mouth in the morning. (Patient not taking: Reported on 07/30/2023) 90 tablet 2 More than a month gabapentin (NEURONTIN) 300 mg capsule TAKE ONE CAPSULE BY MOUTH TWICE A DAY FOR HOT FLASHES (Patient not taking: Reported on 10/28/2023) More than a month predniSONE (DELTASONE) 5 mg tablet Take 1 tablet (5 mg total) by mouth in the morning. (Patient nottaking: Reported on 10/16/2023) More than a month Current medications: apixaban, 5 mg, oral, BID ciprofloxacin HCl, 500 mg, oral, Q24H RADHA clarithromycin, 500 mg, oral, Q12H RADHA metoprolol succinate XL, 100 mg, oral, Daily sodium chloride, 3 mL, intravenous, Q12H RADHA Social History: Social History Socioeconomic History Marital status: Spouse name: Not on file Number of children: Not on file Years of education: Not on file Highest education level: Some college, no degree Occupational History Not on file Tobacco Use Smoking status: Never Smokeless tobacco: Never Vaping Use Vaping status: Never Used Substance and Sexual Activity Alcohol use: Yes Comment: Socially Drug use: Never Sexual activity: Not on file Other Topics Concern Not on file Social History Narrative Not on file Social Determinants of Health Financial Resource Strain: Low Risk (02/27/2022) Overall Financial Resource Strain (CARDIA) Difficulty of Paying Living Expenses: Not hard at all Food Insecurity: No Food Insecurity (12/03/2023) Hunger Screening Food Insecurity - Worry: Never True Food Insecurity - Inability: Never True Transportation Needs: No Transportation Needs (12/03/2023) PRAPARE - Transportation Lack of Transportation (Medical): No Lack of Transportation (Non-Medical): No Physical Activity: Sufficiently Active (02/27/2022) Exercise Vital Sign Days of Exercise per Week: 3 days Minutes of Exercise per Session: 60 min Stress: Stress Concern Present (02/27/2022) [place] Citizen [employer] - Occupational Stress Questionnaire Feeling of Stress : To some extent Social Connections: Socially Integrated (02/27/2022) Social Connection and Isolation Panel [NHANES] Frequency of Communication with Friends and Family: Twice a week Frequency of Social Gatherings with Friends and Family: Three times a week Attends Gnosticist Services: More than 4 times per year Active Member of Clubs or Organizations: Yes Attends Club or Organization Meetings: 1 to 4 times per year Marital Status: Interpersonal Safety: Not At Risk (12/03/2023) Humiliation, Afraid, Rape, and Kick questionnaire Fear of Current or Ex-Partner: No Emotionally Abused: No Physically Abused: No Sexually Abused: No Housing Instability: Low Risk (12/03/2023) Housing Instability Housing Instability: No Family History: Family History Adopted: Yes Review of Systems: She did have fevers and chills prior to presentation Denies any earaches, runny nose or sore throat. Denies any cough, sputum production or shortness of breath. Denies any chest pain or palpitation. Denies any nausea, vomiting, abdominal pain, diarrhea or constipation. Denies any pain or burning on urination or difficulty passing urine. Denies any edema. Denies any new skin rashes, lesions or ulcers. Denies any new joint aches or swelling. Denies any focal weakness or paresthesia or tremors. Denies any easy bruising Physical Exam Vitals: 12/03/23 0006 12/03/23 0354 12/03/23 0623 12/03/23 0802 BP: 150/86 136/87 (!) 135/91 Pulse: 87 94 107 97 Resp: 17 18 15 24 Temp: 36.8 C (98.2 F) 36.9 C (98.5 F) 37 C (98.6 F) TempSrc: Oral Oral Oral SpO2: 97% 96% 96% 96% Weight: 97.3 kg (214 lb 8.1 oz) Height: 180.3 cm (5' 11 ) INTAKE/OUTPUT:No intake or output data in the 24 hours ending 12/03/23 1213 No intake/output data recorded. Vital Signs: Blood pressure (!) 135/91, pulse 97, temperature 37 C (98.6 F), temperature source Oral, resp. rate 24, height 180.3 cm (5' 11 ), weight 97.3 kg (214 lb 8.1 oz), SpO2 96%. Respiratory Source: O2 Device: None (Room air) Admission Weight: Weight: 94.3 kg (208 lb) General appearance: alert in no apparent distress. Psychiatric: Oriented to place, time and person HEENT: atraumatic, supple, moist oral mucosa, no JVD Cardiovascular: normal S1-S2 Respiratory: No respiratory distress with no use of accessory muscles. Clear to auscultation bilaterally with no wheezes or crackles Abdomen: soft, no tenderness, no guarding, positive bowel sounds and no hepato or splenomegaly Cardiovascular: no edema Vascular: adequate pulses and no carotid bruits. Musculoskeletal: no joint swelling or tenderness. Neurologic: No focal deficit in upper or lower extremities Lymphatic: no cervical or axillary lymphadenopathy. Laboratory Workup: Results from last 7 days Lab Units 12/03/23 0350 12/02/23 2213 11/30/23 0930 11/27/23 0545 11/26/23 1715 SODIUM mmol/L 137 133* 142 140 139 POTASSIUM mmol/L 3.1* 3.2* 3.3* 3.8 3.0* CHLORIDE mmol/L 104 99 105 105 102 CO2 mmol/L 25 25 29 30 29 ANION GAP mmol/L 8 9 8 5 8 BUN mg/dL 25* 27* 9 16 19 CREATININE mg/dL 2.49* 2.52* 0.62 0.71 0.81 CALCIUM mg/dL 9.2 9.8 9.6 9.5 9.5 MAGNESIUM mg/dL 1.5* -- -- -- -- Results from last 7 days Lab Units 12/03/23 0350 12/02/23 2305 12/02/23 221 TOTAL PROTEIN g/dL 5.5* -- 6.4 ALBUMIN g/dL 3.3 -- 3.8 AST U/L -- 24 ALT U/L 10 -- 12 TOTAL BILIRUBIN mg/dL 0.6 -- 0.6 BILIRUBIN, URINE -- Negative -- ALK PHOS U/L 60 -- 69 Results from last 7 days Lab Units 12/03/23 0350 12/02/23221211/30/23 0930 11/27/23 0545 WBC X10E9/L 5.8 7.8 6.5 6.2 HEMOGLOBIN g/dL 8.0* 9.1* 8.8* 8.7* HEMATOCRIT % 22.9* 26.0* 25.2* 24.9* PLATELETS X10E9/L 233 279 294 267 Lab Results Component Value Date IRON 43 (L) 01/31/2022 TIBC 519 (H) 01/31/2022 FERRITIN 8 (L) 01/31/2022 IRONSAT 8 (L) 01/31/2022 Results from last 7 days Lab Units 12/03/23 0350 12/02/23221211/30/23 0930 11/27/23 0545 11/26/23 1715 GLUCOSE mg/dL 103* 106* 84 101* 97 Results from last 7 days Lab Units 11/28/23 1551 CK TOTAL U/L 45 Urine Lab Results Component Value Date COLOR YELLOW 12/02/2023 TURBIDITY CLEAR 12/02/2023 SPECIFICGRA 1.010 12/02/2023 NITRITE Negative 12/02/2023 PHURINE 6.0 12/02/2023 LEUKOCYTE SMALL (A) 12/02/2023 PROTEIN Negative 12/02/2023 KETONES Negative 12/02/2023 UROBILINOGEN 0.2 12/02/2023 BLOODHGB Negative 12/02/2023 Lab Results Component Value Date URINECREATI 56.74 12/02/2023 Immunology Profile Lab Results Component Value Date SEDRATE 30 11/26/2023 CRP 2.6 (H) 11/26/2023 No results found for: HAV , HEPAIGM , HEPBIGM , HEPBCAB , HBEAG , HEPCAB Imaging: None Impression and Plan: Acute kidney injury which is likely related to Acute Tubular Necrosis in the setting of sepsis, vancomycin nephrotoxicity and decreased p.o. intake with ongoing intake of lisinopril, hydrochlorothiazide, Lasix and Aldactone. Offending medications have been discontinued. IV fluids have been ordered.Renal ultrasound serologies and urine studies have been ordered. Advise avoiding nephrotoxins and hypotension. Further recommendations will made accordingly. Left breast infection with removal of infected seroma. Antibiotics per Infectious Disease Hypokalemia and hypomagnesemia likely related to diuresis: Status post replacement per sliding scale. Continue to follow electrolytes and replace per sliding scale as needed. Left breast implant with postoperative infection. Id has been consulted. Hypertension: Elevated blood pressure. IV hydralazine and IV labetalol p.r.n. were ordered. Reassess blood pressure in a.m.. Thank you for your consultation and allowing us to participate in the care of Ike Jones and please do not hesitate to call us with any questions at: Office: [phone] Office Answering Service: [phone] Epifanio Henry M.D. This note was created with the assistance of a speech-recognition program. Although the intention is to generate a document that actually reflects the content of the visit, no guarantees can be provided that every mistake has been identified and corrected by editing. [facility] Consult [facility]* Carlene Noguera MD - 12/03/2023 2:03 PM EDTAssociated Order(s): IP CONSULT TO INFECTIOUS DISEASES Images from the original note were not included. [facility] - Initial Consult Note Ike Jones Admit date/time 12/02/2023 9:55 PM Today's Date and Time: 12/03/2023, 2:03 PM Impression: Left breast cellulitis Postop infection of left breast tissue tortilla maker-culture growing acid-fast bacilli Acute kidney injury History of breast cancer S/p bilateral mastectomies S/p bilateral breast reconstruction October 28, 2023 History of DVT-on Eliquis Presence of Port-A-Cath Recommendations Blood cultures in process Urine culture in process Nephrology consulted for acute kidney injury Consult cardiology for EKG finding Aspirate cultures(left breast) from 11/27/2023 Preliminarily with acid-fast bacilli Vancomycin and Invanz discontinued Start ciprofloxacin and clarithromycin for acid-fast bacilli coverage QTC 413 Follow CBC and renal function WBC 5.8, creatinine 2.49 Follow temperatures Supportive care Ambulatory referrals to Infectious Disease at [facility], [facility], [facility] have been placed for F/U acid-fast bacilli. Patient was notified by [facility] that she can not use her insurance over [facility]. We will send referral per patient request to [facility]. Reason for consultation: Infection on IV antibiotics, established patient Chief complaint Postop problem History of Present Illness: Ike Jones is a 53 y.o.-year-old female who was initially admitted on 12/02/2023. Patient presents to hospital with complaints fever, chills, and vomiting. Patient was recently admitted and discharged from [facility] after removal of infected tissue tortilla maker. She was discharged home on Vancomycin and Ertapenem to continue tentatively until December 08. [facility] Last night, we were notified that creatinine was 2.56 and vanco trough 33. Patient also complaining nausea, fever, and chills and was advised to go to ER. Left breast cultures from previous admission are preliminarily growing acid-fast bacilli. [facility], and [facility] for management/treatment. Per patient, [facility] notified her today and stated they cannot accept her insurance. [facility] cannot see her until December or January. Will place referral to [facility] per patient request. Patient states she feels better today with no further nausea or vomiting.. WBC stable. Denies any cough or shortness of breath. Pain is stable I have personally reviewed the past medical history, past surgical history, medications, social history, and family history, and I have updated the database accordingly. Past Medical History: Past Medical History: Diagnosis Date Breast cancer ([facility]) 2023 mammary carcinoma Deep vein thrombosis ([facility]) 09/18/2023 Left calf Hypertension Knee pain PONV (postoperative nausea and vomiting) Port-A-Cath in place 05/13/2023 Visual impairment Glasses Past Surgical History: Past Surgical History: Procedure Laterality Date ARTHROSCOPIC REPAIR ACL Right 2006 ARTHROSCOPIC REPAIR ACL Left 08/26/2021 BREAST BIOPSY Right 2023 mammary carcinoma EXCISION LYMPH NODE AXILLARY DISSECTION Right 10/28/2023 Performed by Christy He MD at [facility] HYSTERECTOMY IMMEDIATE BREAST RECONSTRUCTION WITH TISSUE SMELTER CHARGER PLACEMENT Bilateral 10/28/2023 Performed by Jhon Rosado MD at [facility] INCISION DRAINAGE BREAST Left 11/27/2023 Performed by Jhon Rosado MD at [facility] MAGNETIC SEED LOCALIZATION EXCISION/BIOPSY MASS BREAST (MAG SEED LOCALIZED TARGETED DISSECTION FOR RETRIEVAL OF PREVIOUSLY CLIPPED LYMPH NODE) Right 10/28/2023 Performed by Christy He MD at [facility] MASTECTOMY BREAST SIMPLE RISK REDUCING SKIN SPARING Left 10/28/2023 Performed by Christy He MD at [facility] MASTECTOMY BREAST SIMPLE SKIN SPARING Right 10/28/2023 Performed by Christy He MD at [facility] MENISCECTOMY Bilateral 2022 PORTACATH PLACEMENT Left left chest REMOVAL SMELTER CHARGER TISSUE BREAST Left 11/27/2023 Performed by Jhon Rosado MD at [facility] RIGHT AXILLARY PROPHYLACTIC BYPASS LYMPHOVENOUS Right 10/28/2023 Performed by Jhon Rosado MD at [facility] TONSILLECTOMY AND ADENOIDECTOMY Age 3 TUMOR REMOVAL back-benign Medications: apixaban, 5 mg, oral, BID ciprofloxacin HCl, 500 mg, oral, Q24H RADHA clarithromycin, 500 mg, oral, Q12H RADHA metoprolol succinate XL, 100 mg, oral, Daily sodium chloride, 3 mL, intravenous, Q12H RADHA Social History: Social History Socioeconomic History Marital status: Spouse name: Not on file Number of children: Not on file Years of education: Not on file Highest education level: Some college, no degree Occupational History Not on file Tobacco Use Smoking status: Never Smokeless tobacco: Never Vaping Use Vaping status: Never Used Substance and Sexual Activity Alcohol use: Yes Comment: Socially Drug use: Never Sexual activity: Not on file Other Topics Concern Not on file Social History Narrative Not on file Social Determinants of Health Financial Resource Strain: Low Risk (02/27/2022) Overall Financial Resource Strain (CARDIA) Difficulty of Paying Living Expenses: Not hard at all Food Insecurity: No Food Insecurity (12/03/2023) Hunger Screening Food Insecurity - Worry: Never True Food Insecurity - Inability: Never True Transportation Needs: No Transportation Needs (12/03/2023) PRAPARE - Transportation Lack of Transportation (Medical): No Lack of Transportation (Non-Medical): No Physical Activity: Sufficiently Active (02/27/2022) Exercise Vital Sign Days of Exercise per Week: 3 days Minutes of Exercise per Session: 60 min Stress: Stress Concern Present (02/27/2022) [place] Citizen [employer] - Occupational Stress Questionnaire Feeling of Stress : To some extent Social Connections: Socially Integrated (02/27/2022) Social Connection and Isolation Panel [NHANES] Frequency of Communication with Friends and Family: Twice a week Frequency of Social Gatherings with Friends and Family: Three times a week Attends Gnosticist Services: More than 4 times per year Active Member of Clubs or Organizations: Yes Attends Club or Organization Meetings: 1 to 4 times per year Marital Status: Interpersonal Safety: Not At Risk (12/03/2023) Humiliation, Afraid, Rape, and Kick questionnaire Fear of Current or Ex-Partner: No Emotionally Abused: No Physically Abused: No Sexually Abused: No Housing Instability: Low Risk (12/03/2023) Housing Instability Housing Instability: No Family History: Family History Adopted: Yes Allergies: Meperidine, Daptomycin, and Adhesive Review of Systems: Review of Systems Constitutional: Positive for fever, chills and appetite change. HENT: Negative. Eyes: Negative. Respiratory: Negative. Cardiovascular: Negative. Gastrointestinal: Positive for nausea and vomiting. Endocrine: Negative. Genitourinary: Negative. Musculoskeletal: Negative. Skin: Negative. Allergic/Immunologic: Negative. Neurological: Negative. Hematological: Negative. Physical Examination : BP 139/79 Pulse 76 Temp 36.7 C (98.1 F) (Oral) Resp 19 Ht 180.3 cm (5' 11 ) Wt 97.3 kg (214 lb 8.1 oz) SpO2 98% BMI 29.92 kg/m Temperature Range: Temp: 36.7 C (98.1 F) Temp Av.9 C (98.5 F) Min: 36.7 C (98.1 F) Max: 37.3 C(99.1 F) Physical Exam Constitutional She is oriented to person, place, and time. She appears well- developed and well-nourished. No distress. HENT Head Normocephalic and atraumatic. Ears Right Ear: External ear normal. Left Ear: External ear normal. Nose Nose normal. Mouth/Throat Throat: Oropharynx: oropharynx clear and moist Eyes: Conjunctivae and EOM are normal. Pupils are equal, round, and reactive to light. Neck Normal range of motion. Neck supple. Cardiovascular: Normal rate and regular rhythm. Pulses: intact distal pulses Heart Sounds: normal heart sounds. Pulmonary/Chest: Effort normal and breath sounds normal. Lines/drains present? yes Abdominal: Bowel sounds are normal. She exhibits no distension. Soft. Musculoskeletal: General: No tenderness or edema. Normal range of motion. Cervical back: Normal range of motion and neck supple. Lymph System normal. Neurological She is alert and oriented to person, place, and time. She has normal reflexes. Skin: Skin is warm and dry. No rash noted. Psychiatric: She has a normal mood and affect. Medical Decision Making: I have independently reviewed/ordered the following labs: CBC with Differential: Results from last 7 days Lab Units 12/03/23 0350 12/02/23221211/30/23 0930 WBC X10E9/L 5.8 7.8 6.5 HEMOGLOBIN g/dL 8.0* 9.1* 8.8* HEMATOCRIT % 22.9* 26.0* 25.2* PLATELETS X10E9/L 233 279 294 BMP: Results from last 7 days Lab Units 12/03/23 1220 12/03/23 0350 12/02/23221211/30/23 0930 POTASSIUM mmol/L 3.6 3.1* 3.2* 3.3* CHLORIDE mmol/L -- 104 99 105 CO2 mmol/L -- 25 25 29 BUN mg/dL -- 25* 27* 9 CREATININE mg/dL -- 2.49* 2.52* 0.62 EGFR (CKD-EPI)NON-RACE DEPENDENT ml/min/1.73sq.m -- 23* 22* >90 CALCIUM mg/dL -- 9.2 9.8 9.6 MAGNESIUM mg/dL 2.2 1.5* -- -- LFTs: Results from last 7 days Lab Units 12/03/23 0350 12/02/23 2213 ALK PHOS U/L 60 69 ALT U/L 10 12 AST U/L 19 24 Vanco: Inflam markers: Lab Results Component Value Date CRP 2.6 (H) 11/26/2023 Lab Results Component Value Date SEDRATE 30 11/26/2023 Cultures: Microbiology Results Procedure Component Value Units Date/Time Urine culture [[id number]] Collected: 12/02/23 2341 Specimen: Urine Updated: 12/03/23 0829 Blood culture [[id number]] Collected: 12/02/232235 Specimen: Blood, Peripheral Draw Updated: 12/02/232235 Blood culture [[id number]] Collected: 12/02/232235 Specimen: Blood, Peripheral Draw Updated: 12/02/232235 Anaerobic culture [[id number]] Collected: 11/27/23 1548 Specimen: Body Fluid from Breast, Left Updated: 12/02/23 0851 Specimen Notes SPECIMEN A Culture NO GROWTH 5 DAYS Fungal culture includes fungal smear [[id number]] Collected: 11/27/23 1548 Specimen: Body Fluid from Breast, Left Updated: 11/28/23 0702 Specimen Notes SPECIMEN A Fungal smear -- NO FUNGAL ELEMENTS SEEN ON DIRECT SMEAR Culture PENDING AFB culture concentrated includes AFB smear [[id number]] (Abnormal) Collected: 11/27/23 1548 Specimen: Body Fluid from Breast, Left Updated: 12/01/23 1056 Specimen Notes SPECIMEN A AFB Smear NO ACID FAST BACILLI (CONCENTRATED SMEAR) Culture ACID FAST BACILLI ISOLATED Aspirate culture includes gram stain [[id number]] (Abnormal) Collected: 11/27/23 154 Specimen: Aspirate Atr Updated: 12/01/23 1544 Specimen Notes SPECIMEN A Gram Stain Result >25 WHITE BLOOD CELLS/LPF 0 SQUAMOUS EPITHELIAL CELLS/LPF NO ORGANISMS SEEN Culture MODERATE ACID FAST BACILLI ISOLATED REPORT UPDATED GROWTH OBSERVED AT 48 HOURS Mrsa Pcr nasal swab [[id number]] Collected: 11/27/23 0020 Specimen: Nasal Updated: 11/27/23 0957 Mrsa PCR Negative Blood culture [[id number]] Collected: 11/26/23 1715 Specimen: Blood Updated: 12/01/232007 Culture NO GROWTH 5 DAYS Imaging Studies: No results found. Gino Munguia APRN, [facility] [phone] Thank you for allowing us to participate in the care of this patient. Please call with questions. Gino Munguia APRN-[facility] 12/03/23 1419 ICarlene MD, personally performed [id number] diagnostic evaluation on this patient I reviewed and performed all the ross component of the patient visit I reviewed CELINA history, exam and MDM - Carlene Noguera MD 12/03/23 3:19 PM [facility]10[facility] Consult note* Epifanio Henry MD - 12/03/2023 12:13 PM EDTAssociated Order(s): Consult Nephrology Images from the original note were not included. Consult Nephrology Consult performed by: Epifanio Henry MD Consult ordered by: Chris Mcmullen PA-C NEPHROLOGY CONSULT NOTE Date of Admission: 12/02/2023 9:55 PM Reason for Consult: Acute kidney injury Referring Provider: Chris Mcmullen PA-C PCP: AMEENA DIAZ Chief Complaint: Fevers History of Present Illness: Ike Jones is a 53 y.o. female who presented with the above chief complaint. The patient was recently discharged from the hospital after removal of breast tortilla maker secondary to infection. She was discharged on IV vancomycin and IV imipenem. She has started to have fevers overnight. She presented to emergency room. She was found to have acute kidney injury with a creatinine of 2.5 compared to his 0.6 from November 29. Creatinine from today is about 2.5. We were consulted for evaluation of the acute kidney injury in the setting of the above. The patient denies any history recurrent UTIs or kidney stones. She is adopted and she will she does not know if she does have a genetic risk factor for kidney disease or dialysis. Denies any pain orburning on urination difficulty passing urine. Denies any frequent intake of NSAIDs. Denies any other recent illnesses, surgeries or procedures except for the removal of the breast tortilla maker and the IV antibiotics for the infection. Past Medical and Surgical History: Acute kidney injury which could related to Acute Tubular Necrosis secondary to sepsis versus vancomycin nephrotoxicity versus volume depletion secondary to poor p.o. intake in the setting of ongoing intake of chlorthalidone, Lasix, lisinopril and spironolactone. From December of 2023 Renal ultrasound, CPK, serum protein electrophoresis, JUSTIN, anti MPO, PR3, anti-GBM, C3, C4, urine dipstick and urine protein to creatinine ratio as well as fractional excretion of sodium are pending. Left breast cellulitis with infected seroma status post removal of left breast tortilla maker on November 27, 2023 Hypertension Edema Depression/anxiety DVT Right-sided breast cancer status post bilateral mastectomy with a lymph node dissection with subsequent bilateral breast reconstruction on October 28, 2023 MediPort placement Bilateral knee arthroscopy Tonsillectomy and adenoidectomy Allergies: Allergies Allergen Reactions Meperidine Facial Swelling Daptomycin Flushing Adhesive Rash Home Meds: Medications Prior to Admission Medication Sig Dispense Refill Last Dose acetaminophen (TYLENOL EXTRA STRENGTH) 500 mg tablet Take 2 tablets (1,000 mg total) by mouth every8 (eight) hours as needed for pain. 12/02/2023 albuterol (PROVENTIL,VENTOLIN) 2.5 mg /3 mL (0.083 %) nebulizer solution Inhale 3 mL (2.5 mg total)by nebulization every 6 (six) hours as needed for wheezing. 75 mL 1 Other - as prescribed chlorthalidone (HYGROTON) 25 mg tablet Take 0.5 tablets (12.5 mg total) by mouth daily. 12/02/2023 cyclobenzaprine (FLEXERIL) 10 mg tablet TAKE ONE TABLET BY MOUTH ONCE DAILY IN THE EVENING 30 tablet 11 12/02/2023 DULoxetine (CYMBALTA) 30 mg capsule Take 1 capsule (30 mg total) by mouth once daily at bedtime. 12/02/2023 ELIQUIS 5 mg tablet Take 1 tablet (5 mg total) by mouth in the morning and 1 tablet (5 mg total) before bedtime. Indications: blood clot in a deep vein of the extremities. 12/02/2023 ertapenem 1,000 mg in sodium chloride 0.9 % 50 mL IVPB MINI-BAG Plus Infuse 1,000 mg into a venous catheter daily for 10 days. 1 each 0 12/02/2023 fluticasone propionate (FLONASE) 50 mcg/actuation nasal spray Other - as prescribed furosemide (LASIX) 20 mg tablet Take 1 tablet (20 mg total) by mouth daily. 12/02/2023 KLOR-CON 20 mEq packet Take 1 packet (20 mEq total) by mouth in the morning. Past Week lidocaine-prilocaine (EMLA) cream Apply 1 Application topically as needed for pain. Past Week lisinopriL (PRINIVIL,ZESTRIL) 20 mg tablet Take 1 tablet (20 mg total) by mouth in the morning. 12/02/2023 magnesium oxide 400 mg magnesium tablet Take 400 mg by mouth in the morning. 12/02/2023 metoprolol succinate XL (TOPROL XL) 100 mg 24 hr tablet Take 1 tablet (100 mg total) by mouth in the morning. 12/02/2023 oxyCODONE (ROXICODONE) 5 mg immediate release tablet Take 1 tablet (5 mg total) by mouth every 4 (four) hours as needed for pain for up to 5 days. Max Daily Amount: 30 mg 12 tablet 0 Past Week spironolactone (ALDACTONE) 25 mg tablet Take 1 tablet (25 mg total) by mouth in the morning. 12/02/2023 traZODone (DESYREL) 50 mg tablet TAKE ONE TABLET BY MOUTH ONCE DAILY AT NIGHT 90 tablet 1 12/02/2023 vancomycin 1,500 mg in sodium chloride 0.9 % 500 mL IVPB Infuse 1,500 mg into a venous catheter every 12 (twelve) hours for 10 days. 1 each 0 12/02/2023 capecitabine (XELODA) 500 mg chemo tablet Take by mouth after surgery (Patient not taking: Reportedon 10/16/2023) More than a month dexAMETHasone (DECADRON) 1 mg tablet TAKE ONE TABLET BY MOUTH TWICE A DAY ON DAYS 3-6 AFTER CHEMOTHERAPY FOR FATIGUE (Patient not taking: Reported on 10/16/2023) More than a month diazePAM (VALIUM) 5 mg tablet Take 1 tablet (5 mg total) by mouth every 6 (six) hours as needed formuscle spasms. (Patient not taking: Reported on 12/03/2023) 18 tablet 0 More than a month ferrous sulfate 325 (65 FE) mg tablet Take 1 tablet (325 mg total) by mouth in the morning. (Patient not taking: Reported on 07/30/2023) 90 tablet 2 More than a month gabapentin (NEURONTIN) 300 mg capsule TAKE ONE CAPSULE BY MOUTH TWICE A DAY FOR HOT FLASHES (Patient not taking: Reported on 10/28/2023) More than a month predniSONE (DELTASONE) 5 mg tablet Take 1 tablet (5 mg total) by mouth in the morning. (Patient nottaking: Reported on 10/16/2023) More than a month Current medications: apixaban, 5 mg, oral, BID ciprofloxacin HCl, 500 mg, oral, Q24H RADHA clarithromycin, 500 mg, oral, Q12H RADHA metoprolol succinate XL, 100 mg, oral, Daily sodium chloride, 3 mL, intravenous, Q12H RADHA Social History: Social History Socioeconomic History Marital status: Spouse name: Not on file Number of children: Not on file Years of education: Not on file Highest education level: Some college, no degree Occupational History Not on file Tobacco Use Smoking status: Never Smokeless tobacco: Never Vaping Use Vaping status: Never Used Substance and Sexual Activity Alcohol use: Yes Comment: Socially Drug use: Never Sexual activity: Not on file Other Topics Concern Not on file Social History Narrative Not on file Social Determinants of Health Financial Resource Strain: Low Risk (02/27/2022) Overall Financial Resource Strain (CARDIA) Difficulty of Paying Living Expenses: Not hard at all Food Insecurity: No Food Insecurity (12/03/2023) Hunger Screening Food Insecurity - Worry: Never True Food Insecurity - Inability: Never True Transportation Needs: No Transportation Needs (12/03/2023) PRAPARE - Transportation Lack of Transportation (Medical): No Lack of Transportation (Non-Medical): No Physical Activity: Sufficiently Active (02/27/2022) Exercise Vital Sign Days of Exercise per Week: 3 days Minutes of Exercise per Session: 60 min Stress: Stress Concern Present (02/27/2022) [place] Citizen [place] [employer] Occupational Health - Occupational Stress Questionnaire Feeling of Stress : To some extent Social Connections: Socially Integrated (02/27/2022) Social Connection and Isolation Panel [NHANES] Frequency of Communication with Friends and Family: Twice a week Frequency of Social Gatherings with Friends and Family: Three times a week Attends Gnosticist Services: More than 4 times per year Active Member of Clubs or Organizations: Yes Attends Club or Organization Meetings: 1 to 4 times per year Marital Status: Interpersonal Safety: Not At Risk (12/03/2023) Humiliation, Afraid, Rape, and Kick questionnaire Fear of Current or Ex-Partner: No Emotionally Abused: No Physically Abused: No Sexually Abused: No Housing Instability: Low Risk (12/03/2023) Housing Instability Housing Instability: No Family History: Family History Adopted: Yes Review of Systems: She did have fevers and chills prior to presentation Denies any earaches, runny nose or sore throat. Denies any cough, sputum production or shortness of breath. Denies any chest pain or palpitation. Denies any nausea, vomiting, abdominal pain, diarrhea or constipation. Denies any pain or burning on urination or difficulty passing urine. Denies any edema. Denies any new skin rashes, lesions or ulcers. Denies any new joint aches or swelling. Denies any focal weakness or paresthesia or tremors. Denies any easy bruising Physical Exam Vitals: 12/03/23 0006 12/03/23 0354 12/03/23 0623 12/03/23 0802 BP: 150/86 136/87 (!) 135/91 Pulse: 87 94 107 97 Resp: 24 Temp: 36.8 C (98.2 F) 36.9 C (98.5 F) 37 C (98.6 F) TempSrc: Oral Oral Oral SpO2: 97% 96% 96% 96% Weight: 97.3 kg (214 lb 8.1 oz) Height: 180.3 cm (5' 11 ) INTAKE/OUTPUT:No intake or output data in the 24 hours ending 12/03/23 1213 No intake/output data recorded. Vital Signs: Blood pressure (!) 135/91, pulse 97, temperature 37 C (98.6 F), temperature source Oral, resp. rate 24, height 180.3 cm (5' 11 ), weight 97.3 kg (214 lb 8.1 oz), SpO2 96%. Respiratory Source: O2 Device: None (Room air) Admission Weight: Weight: 94.3 kg (208 lb) General appearance: alert in no apparent distress. Psychiatric: Oriented to place, time and person HEENT: atraumatic, supple, moist oral mucosa, no JVD Cardiovascular: normal S1-S2 Respiratory: No respiratory distress with no use of accessory muscles. Clear to auscultation bilaterally with no wheezes or crackles Abdomen: soft, no tenderness, no guarding, positive bowel sounds and no hepato or splenomegaly Cardiovascular: no edema Vascular: adequate pulses and no carotid bruits. Musculoskeletal: no joint swelling or tenderness. Neurologic: No focal deficit in upper or lower extremities Lymphatic: no cervical or axillary lymphadenopathy. Laboratory Workup: Results from last 7 days Lab Units 12/03/2334912/02/23221211/30/2392911/27/23 0545 11/26/23 1715 SODIUM mmol/L 137 133* 142 140 139 POTASSIUM mmol/L 3.1* 3.2* 3.3* 3.8 3.0* CHLORIDE mmol/L 104 99 105 105 102 CO2 mmol/L 25 25 29 30 29 ANION GAP mmol/L 8 9 8 5 8 BUN mg/dL 25* 27* 9 16 19 CREATININE mg/dL 2.49* 2.52* 0.62 0.71 0.81 CALCIUM mg/dL 9.2 9.8 9.6 9.5 9.5 MAGNESIUM mg/dL 1.5* -- -- -- -- Results from last 7 days Lab Units 12/03/23 03512/02/23 23012/02/232212 TOTAL PROTEIN g/dL 5.5* -- 6.4 ALBUMIN g/dL 3.3 -- 3.8 AST U/L -- 24 ALT U/L 10 -- 12 TOTAL BILIRUBIN mg/dL 0.6 -- 0.6 BILIRUBIN, URINE -- Negative -- ALK PHOS U/L 60 -- 69 Results from last 7 days Lab Units 12/03/23 03512/02/23221211/30/2392911/27/23 0545 WBC X10E9/L 5.8 7.8 6.5 6.2 HEMOGLOBIN g/dL 8.0* 9.1* 8.8* 8.7* HEMATOCRIT % 22.9* 26.0* 25.2* 24.9* PLATELETS X10E9/L 233 279 294 267 Lab Results Component Value Date IRON 43 (L) 01/31/2022 TIBC 519 (H) 01/31/2022 FERRITIN 8 (L) 01/31/2022 IRONSAT 8 (L) 01/31/2022 Results from last 7 days Lab Units 12/03/23 0350 12/02/23 2213 11/30/23 0930 11/27/23 0545 11/26/23 1715 GLUCOSE mg/dL 103* 106* 84 101* 97 Results from last 7 days Lab Units 11/28/23 1551 CK TOTAL U/L 45 Urine Lab Results Component Value Date COLOR YELLOW 12/02/2023 TURBIDITY CLEAR 12/02/2023 SPECIFICGRA 1.010 12/02/2023 NITRITE Negative 12/02/2023 PHURINE 6.0 12/02/2023 LEUKOCYTE SMALL (A) 12/02/2023 PROTEIN Negative 12/02/2023 KETONES Negative 12/02/2023 UROBILINOGEN 0.2 12/02/2023 BLOODHGB Negative 12/02/2023 Lab Results Component Value Date URINECREATI 56.74 12/02/2023 Immunology Profile Lab Results Component Value Date SEDRATE 30 11/26/2023 CRP 2.6 (H) 11/26/2023 No results found for: HAV , HEPAIGM , HEPBIGM , HEPBCAB , HBEAG , HEPCAB Imaging: None Impression and Plan: Acute kidney injury which is likely related to Acute Tubular Necrosis in the setting of sepsis, vancomycin nephrotoxicity and decreased p.o. intake with ongoing intake of lisinopril, hydrochlorothiazide, Lasix and Aldactone. Offending medications have been discontinued. IV fluids have been ordered.Renal ultrasound serologies and urine studies have been ordered. Advise avoiding nephrotoxins and hypotension. Further recommendations will made accordingly. Left breast infection with removal of infected seroma. Antibiotics per Infectious Disease Hypokalemia and hypomagnesemia likely related to diuresis: Status post replacement per sliding scale. Continue to follow electrolytes and replace per sliding scale as needed. Left breast implant with postoperative infection. Id has been consulted. Hypertension: Elevated blood pressure. IV hydralazine and IV labetalol p.r.n. were ordered. Reassess blood pressure in a.m.. Thank you for your consultation and allowing us to participate in the care of Ike Jones and please do not hesitate to call us with any questions at: Office: [phone] Office Answering Service: [phone] Epifanio Henry M.D. This note was created with the assistance of a speech-recognition program. Although the intention is to generate a document that actually reflects the content of the visit, no guarantees can be provided that every mistake has been identified and corrected by editing. [email or web address] Progress note* Discharge Planning Note - Heike Anderson - 12/03/2023 9:59 AM EDT DISCHARGE PLANNING NOTE Referral to [facility] [employer] [facility] [employer]- [place], [place] [facility] - (P# ; F# ) [email or web address] Progress note* Discharge Planning Note - Mariah Gonsalez RN - 12/03/2023 9:16 AM EDT DISCHARGE PLANNING NOTE Technical Report Writer met with patient and at bedside, introduced self, and explained role. Patient educated on safe discharge plan. Pt admitted 12/02/2023 with MIRNA (acute kidney injury) (CMS-HCC) [N17.9] per chart review. Patient lives with in a one story home with 2 steps to get into home. Patient states that her mom lives with her, her mom is receiving home care and becoming more independent. Patient is independent, drives and is employed. Medical equipment patient used prior to admission includes: none. Patient was receiving IV antibiotics - Vanco/Ertapenum at home thru [facility] with [facility] drawing labs three days a week and weekly port dressing changes. Patient denies need for transportation/ food/ prescription medication assistance resources. PCP: RICHIE HANNA APRN-GARMENT STEAMER Pharmacy:[facility] in [place] PCP and pharmacy confirmed with patient. CN offered to assist with follow up appointment arrangements, patient declined need. Current discharge plan is: home with IV antibiotics Task sent to [facility] to send referral to [facility]. Will continue to follow as plan of care develops. CN discussed benefits and importance of medication compliance and follow ups. - MARIAH GONSALEZ RN 12/03/23 9:16 AM [email or web address] Plan of care note* Plan of Care - Shanice Hogan RN - 12/03/2023 1:08 AM EDT Problem: Low Risk Fall Score Description: [place] Fall Score of 0 - 24 or indicated by [facility] Assessment Goal: Patient should be free from fall Description: Interventions: 1. [place] to environment 2. Hourly rounds addressing the 4 P's (Pain, Positioning, Possessions, Potty) 3. Clear area of hazards (spills, clutter, electrical cords, unnecessary equipment) 4. Place equipment (bed & TV controls, call light, phone, urinal) within reach 5. Encourage patient to wear glasses and hearing aides as appropriate 6. Maintain bed in lowest position 7. Lock wheels on bed/wheelchair 8. Provide adequate lighting, including night light 9. Assess need for additional bedding, food/fluids, pain med's prior to sleep/routinely 10. Provide gripper slippers or personal non-skid footwear 11. Teach patient and patient sales and merchandising representative to maintain environment for safety and engage in all aspects of fall prevention program Outcome: Progressing Note: Evaluation of progress towards goal: Patient remains free from falls and injuries. Patient's 5 P's addressed. Patient bed is in a locked position. Patient has call light for assistance. Will continue to monitor. Problem: Pain Goal: Patient goal is pain score less than 4, able to rest, and participant in treatment plan as appropriate Description: INTERVENTIONS: 1. Encourage patient or legal sales and merchandising representative to report early pain and ask for pain medicine when needed 2. Assess pain using appropriate pain scale and include the scale used when documenting 3. Administer analgesics based on type and severity of pain and evaluate response within appropriate time frame 4. Implement non-pharmacological measures as appropriate and evaluate response 5. Consider cultural and social influences on pain and pain management 6. Notify LIP if interventions ineffective or patient reports new pain 7. Monitor vital signs including pulse ox, end-tidal CO2 based on pain intervention 8. Reassess pain per policy 9. Teach patient or legal sales and merchandising representative interventions for comforting Outcome: Progressing Note: Evaluation of progress towards goal: Patient's pain is assessed and documented with appropriate pain scale. Patient's pain is relieved with PRN medications. Will continue to assess and monitor per hospital policy. Problem: Safety Goal: Patient will be injury free during hospitalization Description: INTERVENTIONS: 1. Assess patient's risk for falls and implement fall prevention plan of care per policy 2. Provide and maintain a safe environment 3. Proper use of double Identifiers 4. Medication administration using the 5 rights 5. Hand hygiene 6. Specimens are labeled at the bedside 7. Instruct patient/ patient sales and merchandising representative about use of safety devices 8. Include patient/ patient sales and merchandising representative in decisions related to safety Outcome: Progressing Note: Evaluation of progress towards goal: Pt remains free from falls and injury, medicated using 5rights, hand hygiene in and out of room, specimens labeled at bedside Problem: Infection Goal: Absence of infection during hospitalization Description: Interventions: 1. Assess and monitor for signs and symptoms of infection 2. Monitor lab/diagnostic results 3. Monitor all insertion sites i.e., indwelling lines, tubes and drains 4. Monitor endotracheal (as able) and nasal secretions for changes in amount and color 5. Administer medications as ordered 6. Instruct and encourage patient and family to use good hand hygiene technique 7. Identify and instruct patient/patient sales and merchandising representative in use of appropriate isolation precautionsfor identified infection/symptoms 8. Provide and discuss with patient/patient sales and merchandising representative on educational MDRO sheet 9. Encourage and monitor nutritional status daily and consult surveyor geophysical prospecting if indicated 10. Implement neutropenic guidelines as needed 11. Review exposure to history of communicable disease and recent travel history on admission 12. Encourage annual influenza vaccine 13. Encourage pneumonia vaccine Outcome: Progressing Note: Evaluation of progress towards goal: Afebrile, labs and VS monitored Problem: Knowledge Deficit Goal: Patient/patient sales and merchandising representative demonstrates understanding of disease process, treatment plan,medications, and discharge instructions Description: INTERVENTIONS 1. Complete learning assessment and assess knowledge base 2. Provide teaching at level of understanding 3. Provide teaching via preferred learning method(s) Outcome: Progressing Note: Evaluation of progress towards goal: Patient updated & verbalizes understanding of POC along with medication education. Will continue to update patient. Patient is encouraged to voice concerns or ask questions regarding care. Problem: Discharge Planning Goal: Discharge to post-acute care, other facility, or home with appropriate resources Description: Patient's goal is: INTERVENTIONS 1. Conduct assessment to determine patient/family and health care team treatment goals, and need for post-acute services based on payer coverage, community resources, and patient preferences, and barriers to discharge 2. Coordinate with Social work, Care Navigation, and Utilization Review to arrange appropriate level of services according to patient's needs based on patient preference and payer coverage in collaboration with the physician and health care team 3. Address psychosocial, clinical, and financial barriers to discharge as identified in assessment in conjunction with the patient/family and health care team 4. Consult appropriate ancillary services (i.e.. PT/OT/ST, etc) as needed 5. Communicate with and update the patient/family, physician, and health care team regarding progress on the discharge plan 6. Identify discharge learning needs (meds, wound care, etc). 7. Arrange for needed discharge transportation as appropriate Outcome: Progressing Note: Evaluation of progress towards goal: An interdisciplinary approach is being utilized.Patient will better understand their condition. F/U appointments will be scheduled. Problem: Inadequate Airway Clearance Goal: Patient will maintain patent airway Description: INTERVENTIONS 1. Assess and monitor breath sounds, cough and sputum (if present) 2. Monitor respiratory rate and oxygen saturation 3. Collaborate with respiratory therapy to administer medication, oxygen, and suitable airway clearance techniques as ordered 4. Position patient for maximum ventilatory efficiency; elevate head of bed at least 30 degrees if appropriate 5. Provide adequate fluid intake to liquify secretions if appropriate 6. Suction secretions as indicated to maintain patent airway 7. Instruct patient to turn, cough, and deep breathe; encourage incentive spirometer if indicated Outcome: Progressing Note: Evaluation of progress towards goal: Patient is encouraged to use incentive spirometer 10x per hour while awake. Patient will maintain open airways as evidenced by the absence of abnormal breathe sounds, a respiratory rate within the normal range, a regular and adequate depth of respirations.And the ability to effectively cough up secretions and deep breaths.The patient will maintain oxygen saturation within normal range during rest and activity as measured by the pulse oximetry. Problem: Inadequate Breathing Pattern Goal: Patient will achieve/maintain normal respiratory rate/effort Description: Patient's goal is: INTERVENTIONS 1. Assess and monitor respiratory rate, effort, breathing pattern, and oxygenation 2. Monitor patient for restlessness, anxiety, air hunger 3. Assess physical activity tolerance 4. Assess tobacco history; ask, advise, and refer as appropriate 5. Collaborate with interdisciplinary team and initiate plans/interventions as needed Outcome: Progressing Note: Evaluation of progress towards goal: Patient is encouraged to use incentive spirometer 10x per hour while awake. Patient will maintain open airways as evidenced by the absence of abnormal breathe sounds, a respiratory rate within the normal range, a regular and adequate depth of respirations.And the ability to effectively cough up secretions and deep breaths.The patient will maintain oxygen saturation within normal range during rest and activity as measured by the pulse oximetry. Problem: Anxiety Goal: Anxiety is at manageable level Description: Patient's goal is: INTERVENTIONS 1. Assess and monitor patient's anxiety level 2. Monitor for signs and symptoms of anxiety both physical and emotional (heart palpitations, chestpain, shortness of breath, headaches, nausea, feeling jumpy, restlessness, irritable, apprehensive) 3. Reorient/orient patient to unit/surroundings 4. Explain treatment plan 5. Explain tests/procedures prior to initiation 6. Encourage participation in care 7. Encourage verbalization of concerns/fears 8. Assess coping mechanisms 9. Assist in developing anxiety-reducing skills 10. Administer complimentary therapies 11. Manage patient's environment 12. Limit or eliminate stimulants such as caffeine and nicotine 13. Collaborate with ancillary departments 14. Include patient/patient sales and merchandising representative in decisions related to anxiety Outcome: Progressing Note: Evaluation of progress towards goal: Patient is offered emotional support, PRN medications asneeded, and continued to be assessed. Problem: Inadequate Coping Goal: Demonstrates and verbalizes ability to cope effectively Description: Patient's goal is: INTERVENTIONS 1. Patient is able to verbalize feelings related to emotional state 2. Encourage verbalization of feelings, perceptions, fears, stressors, loss of loved ones 3. Encourage verbalization of problems out of their control 4. Encourage participation in care and self management 5. Inform patient of all treatment/care prior to providing care 6. Collaborate with pastoral/spiritual care, high school social studies tutor, mental health counselor as needed. 7. Instruct patient on diversional activities such as physical activity, distraction, and deep breathing exercises to assist with coping 8. Involve patient's sales and merchandising representative in care Outcome: Progressing Note: Evaluation of progress towards goal: Patient is cooperative and social. Support and encouragement provided. Patient discusses issues openly with staff and identifies stressors, develops goals and coping skills. Problem: Metabolic/Fluid and Electrolytes - Adult Goal: Electrolytes maintained within normal limits Description: INTERVENTIONS 1. Monitor for signs and symptoms of hypovolemia (tachycardia, rapid breathing, decreased urine output, postural hypotension, sunken fontanel) 2. Monitor for signs and symptoms of hypervolemia (strong rapid pulse, rapid breathing, crackles heard in lung clark, edema, decreased urine output, sudden weight gain, distended neck veins in olderchildren, enlarged liver and spleen) 1. Monitor intake and output 2. Monitor pt's weight 1. Monitor labs and assess patient for signs and symptoms of electrolyte imbalances 2. Administer electrolyte replacement as ordered 3. Monitor response to electrolyte replacements, including repeat lab results as appropriate 4. Fluid restriction or hydration as ordered 5. Instruct patient/ legal sales and merchandising representative on nutrition/diet; fluid/hydration restrictions as appropriate Outcome: Progressing Note: Evaluation of progress towards goal: Display of normal lab values. Electrolytes are replaced as needed. [facility]10-03-2024 History and physical note* Elayne Chow MD - 12/03/2023 12:25 AM EDT Images from the original note were not included. [facility] INTERNAL MEDICINE [facility] -EMERGENCY DEPT [address] [place] [address] Hospital Medicine History & Physical Patient: Ike Jones Date of : 1970 Room: ED PCP: AMEENA DIAZ Admission date: 12/02/2023 9:55 PM Encounter date: 12/02/23 Hospital Day: 1 SUBJECTIVE Ike Jones is a 53 y.o. female who presents with nausea, low grade temperature of 100.9 and feeling generally unwell. Patient has been undergoing IV antibiotics with vancomycin and ertapenem at home due to a post-operative infection of the left breast. Patient went to have labs drawn on 12/02/2023 for monitoring and was found with a significant jump in her creatinine to 2.56, previously 0.62. Her vancomycin trough was 33. Patient's next vancomycin dose was given before results were reported. Her infectious disease provider received results and recommended holding both antibiotics. She called the after hours line for Dr. Noguera with her symptoms of nausea, vomiting and low grade temper ature, and their service recommended patient report to the ED. Labs were obtained in ED, CBC stable. Creatinine 2.52, potassium 3.2, sodium 133. Blood cultures and urine culture obtained. Patient received 1L NS and admission was requested. Patient did see Dr. Rosado, plastic surgery, earlier today and reports he is happy with her progress / surgical site. Chief Complaint Patient presents with Post-op Problem Patient states she had an infected L breast implant and was started on abx on Nov 25. Patient states that on Thursday the implant was removed and Wednesday 11/29 she was discharged from the hospital. Patient states she has been doing her own abx infusions at home through her port since then and saw Dr. Rosado today. Patient states she started having a low grade fever and chills and was sent by infectious disease tonight Allergies: Meperidine, Daptomycin, and Adhesive Prior to Admission medications Medication Sig Start Date End Date Taking? Authorizing Provider acetaminophen (TYLENOL EXTRA STRENGTH) 500 mg tablet Take 2 tablets (1,000 mg total) by mouth every8 (eight) hours as needed for pain. 10/29/23 Shereen Smallwood PA-C albuterol (PROVENTIL,VENTOLIN) 2.5 mg /3 mL (0.083 %) nebulizer solution Inhale 3 mL (2.5 mg total)by nebulization every 6 (six) hours as needed for wheezing. Patient not taking: Reported on 10/28/2023 03/07/22 Richie Hanna APRN-GARMENT STEAMER capecitabine (XELODA) 500 mg chemo tablet Take by mouth after surgery Patient not taking: Reported on 10/16/2023 10/13/23 Not In System Ref Prov chlorthalidone (HYGROTON) 25 mg tablet Take 0.5 tablets (12.5 mg total) by mouth daily. 03/03/23 Not In System Ref Prov cyclobenzaprine (FLEXERIL) 10 mg tablet TAKE ONE TABLET BY MOUTH ONCE DAILY IN THE EVENING 04/28/23 Kaye Jarquin, FLUOROSCOPE OPERATOR-OPHTHALMIC TECH dexAMETHasone (DECADRON) 1 mg tablet TAKE ONE TABLET BY MOUTH TWICE A DAY ON DAYS 3-6 AFTER CHEMOTHERAPY FOR FATIGUE Patient not taking: Reported on 10/16/2023 04/21/23 Not In System Ref Prov diazePAM (VALIUM) 5 mg tablet Take 1 tablet (5 mg total) by mouth every 6 (six) hours as needed formuscle spasms. 11/11/23 Marisela Cuevas, FLUOROSCOPE OPERATOR-GARMENT STEAMER DULoxetine (CYMBALTA) 30 mg capsule Take 1 capsule (30 mg total) by mouth once daily at bedtime. Not In System Ref Prov ELIQUIS 5 mg tablet Take 1 tablet (5 mg total) by mouth in the morning and 1 tablet (5 mg total) before bedtime. Indications: blood clot in a deep vein of the extremities. 09/18/23 Not In System Ref Prov ertapenem 1,000 mg in sodium chloride 0.9 % 50 mL IVPB MINI-BAG Plus Infuse 1,000 mg into a venous catheter daily for 10 days. 11/29/23 12/09/23 Leelee Lieberman, FLUOROSCOPE OPERATOR-GARMENT STEAMER ferrous sulfate 325 (65 FE) mg tablet Take 1 tablet (325 mg total) by mouth in the morning. Patient not taking: Reported on 07/30/2023 03/07/22 Richie Hanna, FLUOROSCOPE OPERATOR-GARMENT STEAMER fluticasone propionate (FLONASE) 50 mcg/actuation nasal spray 1 spray in each nostril Nasally Once a day Patient not taking: Reported on 10/28/2023 Not In System Ref Prov furosemide (LASIX) 20 mg tablet Take 1 tablet (20 mg total) by mouth daily. 08/12/23 08/11/24 Not In System Ref Prov gabapentin (NEURONTIN) 300 mg capsule TAKE ONE CAPSULE BY MOUTH TWICE A DAY FOR HOT FLASHES Patient not taking: Reported on 10/28/2023 05/02/23 Not In System Ref Prov KLOR-CON 20 mEq packet Take 1 packet (20 mEq total) by mouth in the morning. 08/05/23 Not In System Ref Prov lidocaine-prilocaine (EMLA) cream Apply 1 Application topically as needed for pain. 05/12/23 Not In System Ref Prov lisinopriL (PRINIVIL,ZESTRIL) 20 mg tablet Take 1 tablet (20 mg total) by mouth in the morning. 04/10/23 Not In System Ref Prov magnesium oxide 400 mg magnesium tablet Take 400 mg by mouth in the morning. Not In System Ref Prov metoprolol succinate XL (TOPROL XL) 100 mg 24 hr tablet Take 1 tablet (100 mg total) by mouth in the morning. 09/09/23 Not In System Ref Prov oxyCODONE (ROXICODONE) 5 mg immediate release tablet Take 1 tablet (5 mg total) by mouth every 4 (four) hours as needed for pain for up to 5 days. Max Daily Amount: 30 mg 11/28/23 12/03/23 Jhon Rosado MD predniSONE (DELTASONE) 5 mg tablet Take 1 tablet (5 mg total) by mouth in the morning. Patient not taking: Reported on 10/16/2023 Not In System Ref Prov spironolactone (ALDACTONE) 25 mg tablet Take 1 tablet (25 mg total) by mouth in the morning. Not InSystem Ref Prov traZODone (DESYREL) 50 mg tablet TAKE ONE TABLET BY MOUTH ONCE DAILY AT NIGHT 09/15/23 AMEENA Diaz vancomycin 1,500 mg in sodium chloride 0.9 % 500 mL IVPB Infuse 1,500 mg into a venous catheter every 12 (twelve) hours for 10 days. 11/29/23 12/09/23 AMEENA Gomez Past Medical History: Patient has a past medical history of Breast cancer ([facility]) (2023), Deep vein thrombosis ([facility]) (09/18/2023), Hypertension, Knee pain, PONV (postoperative nausea and vomiting), Port-A-Cath in place (05/13/2023), and Visual impairment. Past Surgical History: Patient has a past surgical history that includes Meniscectomy (Bilateral, 2022); Hysterectomy; Arthroscopic repair ACL (Right, 2006); Breast biopsy (Right, 2023); Tumor removal; Arthroscopic repair ACL (Left, 08/26/2021); Portacath placement (Left); Tonsillectomy and adenoidectomy; Mastectomy (Right, 10/28/2023); Axillary node dissection (Right, 10/28/2023); Breast mass excision (Right, 10/28/2023); Mastectomy (Left, 10/28/2023); Tissue tortilla maker placement (Bilateral, 10/28/2023); Lymph node dissection (Right, 10/28/2023); Tissue tortilla maker removal (Left, 11/27/2023); and Incision and drainage of wound (Left, 11/27/2023). Family History: Patient's family history is not on file. She was adopted. Social History: Patient reports that she has never smoked. She has never used smokeless tobacco. She reports current alcohol use. She reports that she does not use drugs. Review of Systems Constitutional: Low grade temperature. HENT: Negative for congestion, dental problem, hearing loss, rhinorrhea, sore throat, trouble swallowing and voice change. Eyes: Negative for visual disturbance. Respiratory: Negative for cough, sputum production, shortness of breath and wheezing. Cardiovascular: Negative for chest pain, palpitations and leg swelling. Gastrointestinal: Positive for nausea and vomiting. Genitourinary: Negative for difficulty urinating, dysuria, enuresis, frequency and hematuria. Musculoskeletal: Negative for arthralgias, joint swelling and myalgias. Skin: Negative for color change, rash and wound. Neurological: Negative for dizziness, seizures, syncope, speech difficulty, weakness, numbness and headaches. OBJECTIVE BP 157/78 Pulse 86 Temp 37.3 C (99.1 F) (Oral) Resp 21 Ht 180.3 cm (5' 11 ) Wt 94.3 kg (208 lb) SpO2 95% BMI 29.01 kg/m Temp: [36.3 C (97.4 F)-37.3 C (99.1 F)] 37.3 C (99.1 F) Heart Rate: [84-97] 86 Resp: [14-21] 21 BP: (142-168)/(78-99) 157/78 SpO2: [95 %] 95 % O2 Device: None (Room air) No intake or output data in the 24 hours ending 12/02/23 0944 Physical Exam Constitutional: General: Not in acute distress. Appearance: Normal appearance and is well-developed. HENT: Head: Normocephalic and atraumatic. Right Ear: External ear normal. Left Ear: External ear normal. Nose: Nose normal. Mouth/Throat: Lips: [place]. Eyes: General: No scleral icterus. Extraocular Movements: Extraocular movements intact. Pupils: Pupils are equal, round, and reactive to light. Cardiovascular: Rate and Rhythm: Normal rate and regular rhythm. Heart sounds: Normal heart sounds, S1 normal and S2 normal. No murmur heard. No friction rub. No gallop. Pulmonary: Effort: Pulmonary effort is normal. Breath sounds: Normal breath sounds. No decreased breath sounds, wheezing, rhonchi or rales. Abdominal: General: Bowel sounds are normal. Palpations: Abdomen is soft. Tenderness: There is no abdominal tenderness. Musculoskeletal: Right lower leg: No edema. Left lower leg: No edema. Skin: General: Skin is warm and dry. Findings: Surgical site examined, appears clean and dry. Neurological: General: No focal deficit present. Mental Status: Alert and oriented to person, place, and time. Psychiatric: Attention and Perception: Attention normal. Mood and Affect: Mood and affect normal. Behavior: Behavior normal. Behavior is cooperative. Medications Scheduled: sodium chloride, 3 mL, intravenous, Q12H RADHA Infusions: sodium chloride 0.9 %, 100 mL/hr As Needed: acetaminophen dextrose dextrose 50 % in water (D50W) ondansetron sennosides-docusate sodium sodium chloride Allergies: Meperidine, Daptomycin, and Adhesive Labs Recent Results (from the past 24 hour(s)) CBC auto differential Collection Time: 12/02/23 10:13 PM Result Value Ref Range White Blood Cells 7.8 4.0 - 11.0 X10E9/L RBC count 2.89 (L) 3.80 - 5.20 X10E12/L Hemoglobin 9.1 (L) 11.7 - 15.5 g/dL Hematocrit 26.0 (L) 35 - 47 % MCV 90 80 - 100 fL MCH 31.6 27 - 34 pg MCHC 35.1 32 - 36 g/dL RDW 14.2 11.5 - 15.0 % Platelets 279 150 - 450 X10E9/L MPV 6.7 (L) 7 - 12 fL % neutrophils 80.4 % % lymphocytes 6.7 % % monocytes 7.5 % % eosinophils 5.1 % % Basophils 0.3 % Neutrophils Absolute (A) 6.3 1.5 - 6.6 X10E9/L Lymphocytes Absolute 0.5 (L) 1.0 - 3.5 X10E9/L Monocytes Absolute 0.6 0 - 0.9 X10E9/L Eosinophils Absolute 0.4 0.0 - 0.4 X10E9/L Basophils Absolute 0.0 0.0 - 0.2 X10E9/L Comprehensive metabolic panel Collection Time: 12/02/23 10:13 PM Result Value Ref Range Sodium 133 (L) 134 - 146 mmol/L Potassium, Bld 3.2 (L) 3.5 - 5.0 mmol/L Chloride 99 98 - 109 mmol/L CO2 25 22 - 32 mmol/L Anion gap 9 5 - 15 mmol/L BUN 27 (H) 5 - 23 mg/dL Creatinine 2.52 (H) 0.40 - 1.00 mg/dL Glucose 106 (H) 65 - 99 mg/dL Calcium 9.8 8.5 - 10.5 mg/dL Total Protein 6.4 6.0 - 8.0 g/dL Albumin 3.8 3.2 - 5.3 g/dL Alkaline Phosphatase 69 39 - 130 U/L AST 24 0 - 41 U/L ALT 12 0 - 31 U/L Total bilirubin 0.6 0.3 - 1.2 mg/dL eGFR (CKD-EPI)non-race dependent 22 (L) >59 ml/min/1.73sq.m Lactate w/ Reflex Collection Time: 12/02/23 10:13 PM Result Value Ref Range Lactate w/ Reflex 0.7 0.4 - 2.0 mmol/L Radiology No results found. HOSPITAL PROBLEM LIST Principal Problem: MIRNA (acute kidney injury) ([facility]) ASSESSMENT & PLAN Acute kidney injury, possibly related to vancomycin use Received 1L NS in ED, continue IVF at 100/hr Consult nephrology for additional recommendations Repeat labs in AM to trend Patient still making urine, denies any changes in amount Post-operative infection of left breast implant Culture growing acid-fast bacilli Implant has been removed and patient has been receiving IV vancomycin and ertapenem per ID Hold antibiotics tonight as recommended by Leelee Lieberman this AM Consult ID for recommendations on when to resume Rechecking random vanco level, creatinine, WBC, platelets, creatinine and LFTs in a.m. per their recommendation Plastic surgeon is Dr. Rosado, will consult if any needs while inpatient Right breast cancer, s/p bilateral mastectomy Followed by Dr. Hope, will consult if any needs while inpatient History of DVT Continue eliquis, reports she has been resumed on this post surgery and is doing well with no bleeding HTN Hold lisinopril, lasix and spironolactone until MIRNA improves Insomnia Continue home medications Admission orders placed and home medications reconciled. DVT/VTE prophylaxis: SCD and pharmacologic prophylaxis, DOAC, continue home dose. DC planning: home pending clinical course. CHRIS MCMULLEN PA-C 12/03/2023 12:26 AM [facility] Internal Medicine 7AM-7PM (all facilities): [employer] or page through [employer]. 7PM-7AM ([facility], [facility]): [employer] or anil, [phone]. 7PM-7AM ([place], [place], [place], [place] and [facility] Rehab): [email or web address] or page through [employer]. Chris Mcmullen PA-C 12/03/23 0025 Chris Mcmullen PA-C 12/03/23 0026 Physician Attestation I personally performed a face to face diagnostic evaluation on this patient on 12/03/23 I have repeated the ross portions of the history, review of systems,physical exam, reviewed relevantlaboratory findings and imaging reports/films. I agree with the CELINA findings and the plan . Patient reports improved symptoms this afternoon. On antibiotics per ID, hold medications as above,continue hydration. Appreciate ID and Nephrology input. Elayne Chow MD [email or web address] History and physical note* Elayne Chow MD - 12/03/2023 12:25 AM EDT Images from the original note were not included. [facility] -EMERGENCY DEPT [address] [place] [id number] Hospital Medicine History & Physical Patient: Ike Jones Date of : 1970 Room: ED PCP: RICHIE HANNA APRN-GARMENT STEAMER Admission date: 12/02/2023 9:55 PM Encounter date: 12/02/23 Hospital Day: 1 SUBJECTIVE Ike Jones is a 53 y.o. female who presents with nausea, low grade temperature of 100.9 and feeling generally unwell. Patient has been undergoing IV antibiotics with vancomycin and ertapenem at home due to a post-operative infection of the left breast. Patient went to have labs drawn on 12/02/2023 for monitoring and was found with a significant jump in her creatinine to 2.56, previously 0.62. Her vancomycin trough was 33. Patient's next vancomycin dose was given before results were reported. Her infectious disease provider received results and recommended holding both antibiotics. She called the after hours line for Dr. Noguera with her symptoms of nausea, vomiting and low grade temper ature, and their service recommended patient report to the ED. Labs were obtained in ED, CBC stable. Creatinine 2.52, potassium 3.2, sodium 133. Blood cultures and urine culture obtained. Patient received 1L NS and admission was requested. Patient did see Dr. Rosado, plastic surgery, earlier today and reports he is happy with her progress / surgical site. Chief Complaint Patient presents with Post-op Problem Patient states she had an infected L breast implant and was started on abx on Nov 25. Patient states that on Thursday the implant was removed and Wednesday 11/29 she was discharged from the hospital. Patient states she has been doing her own abx infusions at home through her port since then and saw Dr. Rosado today. Patient states she started having a low grade fever and chills and was sent by infectious disease tonight Allergies: Meperidine, Daptomycin, and Adhesive Prior to Admission medications Medication Sig Start Date End Date Taking? Authorizing Provider acetaminophen (TYLENOL EXTRA STRENGTH) 500 mg tablet Take 2 tablets (1,000 mg total) by mouth every8 (eight) hours as needed for pain. 10/29/23 Shereen Smallwood PA-C albuterol (PROVENTIL,VENTOLIN) 2.5 mg /3 mL (0.083 %) nebulizer solution Inhale 3 mL (2.5 mg total)by nebulization every 6 (six) hours as needed for wheezing. Patient not taking: Reported on 10/28/2023 03/07/22 Richie Hanna APRN-GARMENT STEAMER capecitabine (XELODA) 500 mg chemo tablet Take by mouth after surgery Patient not taking: Reported on 10/16/2023 10/13/23 Not In System Ref Prov chlorthalidone (HYGROTON) 25 mg tablet Take 0.5 tablets (12.5 mg total) by mouth daily. 03/03/23 Not In System Ref Prov cyclobenzaprine (FLEXERIL) 10 mg tablet TAKE ONE TABLET BY MOUTH ONCE DAILY IN THE EVENING 04/28/23 Kaye Jarquin APRN-OPHTHALMIC TECH dexAMETHasone (DECADRON) 1 mg tablet TAKE ONE TABLET BY MOUTH TWICE A DAY ON DAYS 3-6 AFTER CHEMOTHERAPY FOR FATIGUE Patient not taking: Reported on 10/16/2023 04/21/23 Not In System Ref Prov diazePAM (VALIUM) 5 mg tablet Take 1 tablet (5 mg total) by mouth every 6 (six) hours as needed formuscle spasms. 11/11/23 Marisela Cuevas APRN-GARMENT STEAMER DULoxetine (CYMBALTA) 30 mg capsule Take 1 capsule (30 mg total) by mouth once daily at bedtime. Not In System Ref Prov ELIQUIS 5 mg tablet Take 1 tablet (5 mg total) by mouth in the morning and 1 tablet (5 mg total) before bedtime. Indications: blood clot in a deep vein of the extremities. 09/18/23 Not In System Ref Prov ertapenem 1,000 mg in sodium chloride 0.9 % 50 mL IVPB MINI-BAG Plus Infuse 1,000 mg into a venous catheter daily for 10 days. 11/29/23 12/09/23 Leelee Lieberman APRN-GARMENT STEAMER ferrous sulfate 325 (65 FE) mg tablet Take 1 tablet (325 mg total) by mouth in the morning. Patient not taking: Reported on 07/30/2023 03/07/22 AMEENA Diaz fluticasone propionate (FLONASE) 50 mcg/actuation nasal spray 1 spray in each nostril Nasally Once a day Patient not taking: Reported on 10/28/2023 Not In System Ref Prov furosemide (LASIX) 20 mg tablet Take 1 tablet (20 mg total) by mouth daily. 08/12/23 08/11/24 Not In System Ref Prov gabapentin (NEURONTIN) 300 mg capsule TAKE ONE CAPSULE BY MOUTH TWICE A DAY FOR HOT FLASHES Patient not taking: Reported on 10/28/2023 05/02/23 Not In System Ref Prov KLOR-CON 20 mEq packet Take 1 packet (20 mEq total) by mouth in the morning. 08/05/23 Not In System Ref Prov lidocaine-prilocaine (EMLA) cream Apply 1 Application topically as needed for pain. 05/12/23 Not In System Ref Prov lisinopriL (PRINIVIL,ZESTRIL) 20 mg tablet Take 1 tablet (20 mg total) by mouth in the morning. 04/10/23 Not In System Ref Prov magnesium oxide 400 mg magnesium tablet Take 400 mg by mouth in the morning. Not In System Ref Prov metoprolol succinate XL (TOPROL XL) 100 mg 24 hr tablet Take 1 tablet (100 mg total) by mouth in the morning. 09/09/23 Not In System Ref Prov oxyCODONE (ROXICODONE) 5 mg immediate release tablet Take 1 tablet (5 mg total) by mouth every 4 (four) hours as needed for pain for up to 5 days. Max Daily Amount: 30 mg 11/28/23 12/03/23 Jhon Rosado MD predniSONE (DELTASONE) 5 mg tablet Take 1 tablet (5 mg total) by mouth in the morning. Patient not taking: Reported on 10/16/2023 Not In System Ref Prov spironolactone (ALDACTONE) 25 mg tablet Take 1 tablet (25 mg total) by mouth in the morning. Not InSystem Ref Prov traZODone (DESYREL) 50 mg tablet TAKE ONE TABLET BY MOUTH ONCE DAILY AT NIGHT 09/15/23 AMEENA Diaz vancomycin 1,500 mg in sodium chloride 0.9 % 500 mL IVPB Infuse 1,500 mg into a venous catheter every 12 (twelve) hours for 10 days. 11/29/23 12/09/23 Leelee Lieberman, FLUOROSCOPE OPERATOR-GARMENT STEAMER Past Medical History: Patient has a past medical history of Breast cancer ([facility]) (2023), Deep vein thrombosis ([facility]) (09/18/2023), Hypertension, Knee pain, PONV (postoperative nausea and vomiting), Port-A-Cath in place (05/13/2023), and Visual impairment. Past Surgical History: Patient has a past surgical history that includes Meniscectomy (Bilateral, 2022); Hysterectomy; Arthroscopic repair ACL (Right, 2006); Breast biopsy (Right, 2023); Tumor removal; Arthroscopic repair ACL (Left, 08/26/2021); Portacath placement (Left); Tonsillectomy and adenoidectomy; Mastectomy (Right, 10/28/2023); Axillary node dissection (Right, 10/28/2023); Breast mass excision (Right, 10/28/2023); Mastectomy (Left, 10/28/2023); Tissue tortilla maker placement (Bilateral, 10/28/2023); Lymph node dissection (Right, 10/28/2023); Tissue tortilla maker removal (Left, 11/27/2023); and Incision and drainage of wound (Left, 11/27/2023). Family History: Patient's family history is not on file. She was adopted. Social History: Patient reports that she has never smoked. She has never used smokeless tobacco. She reports current alcohol use. She reports that she does not use drugs. Review of Systems Constitutional: Low grade temperature. HENT: Negative for congestion, dental problem, hearing loss, rhinorrhea, sore throat, trouble swallowing and voice change. Eyes: Negative for visual disturbance. Respiratory: Negative for cough, sputum production, shortness of breath and wheezing. Cardiovascular: Negative for chest pain, palpitations and leg swelling. Gastrointestinal: Positive for nausea and vomiting. Genitourinary: Negative for difficulty urinating, dysuria, enuresis, frequency and hematuria. Musculoskeletal: Negative for arthralgias, joint swelling and myalgias. Skin: Negative for color change, rash and wound. Neurological: Negative for dizziness, seizures, syncope, speech difficulty, weakness, numbness and headaches. OBJECTIVE BP 157/78 Pulse 86 Temp 37.3 C (99.1 F) (Oral) Resp 21 Ht 180.3 cm (5' 11 ) Wt 94.3 kg (208 lb) SpO2 95% BMI 29.01 kg/m Temp: [36.3 C (97.4 F)-37.3 C (99.1 F)] 37.3 C (99.1 F) Heart Rate: [84-97] 86 Resp: [14-21] 21 BP: (142-168)/(78-99) 157/78 SpO2: [95 %] 95 % O2 Device: None (Room air) No intake or output data in the 24 hours ending 12/02/23 2342 Physical Exam Constitutional: General: Not in acute distress. Appearance: Normal appearance and is well-developed. HENT: Head: Normocephalic and atraumatic. Right Ear: External ear normal. Left Ear: External ear normal. Nose: Nose normal. Mouth/Throat: Lips: [place]. Eyes: General: No scleral icterus. Extraocular Movements: Extraocular movements intact. Pupils: Pupils are equal, round, and reactive to light. Cardiovascular: Rate and Rhythm: Normal rate and regular rhythm. Heart sounds: Normal heart sounds, S1 normal and S2 normal. No murmur heard. No friction rub. No gallop. Pulmonary: Effort: Pulmonary effort is normal. Breath sounds: Normal breath sounds. No decreased breath sounds, wheezing, rhonchi or rales. Abdominal: General: Bowel sounds are normal. Palpations: Abdomen is soft. Tenderness: There is no abdominal tenderness. Musculoskeletal: Right lower leg: No edema. Left lower leg: No edema. Skin: General: Skin is warm and dry. Findings: Surgical site examined, appears clean and dry. Neurological: General: No focal deficit present. Mental Status: Alert and oriented to person, place, and time. Psychiatric: Attention and Perception: Attention normal. Mood and Affect: Mood and affect normal. Behavior: Behavior normal. Behavior is cooperative. Medications Scheduled: sodium chloride, 3 mL, intravenous, Q12H RADHA Infusions: sodium chloride 0.9 %, 100 mL/hr As Needed: acetaminophen dextrose dextrose 50 % in water (D50W) ondansetron sennosides-docusate sodium sodium chloride Allergies: Meperidine, Daptomycin, and Adhesive Labs Recent Results (from the past 24 hour(s)) CBC auto differential Collection Time: 12/02/23 10:13 PM Result Value Ref Range White Blood Cells 7.8 4.0 - 11.0 X10E9/L RBC count 2.89 (L) 3.80 - 5.20 X10E12/L Hemoglobin 9.1 (L) 11.7 - 15.5 g/dL Hematocrit 26.0 (L) 35 - 47 % MCV 90 80 - 100 fL MCH 31.6 27 - 34 pg MCHC 35.1 32 - 36 g/dL RDW 14.2 11.5 - 15.0 % Platelets 279 150 - 450 X10E9/L MPV 6.7 (L) 7 - 12 fL % neutrophils 80.4 % % lymphocytes 6.7 % % monocytes 7.5 % % eosinophils 5.1 % % Basophils 0.3 % Neutrophils Absolute (A) 6.3 1.5 - 6.6 X10E9/L Lymphocytes Absolute 0.5 (L) 1.0 - 3.5 X10E9/L Monocytes Absolute 0.6 0 - 0.9 X10E9/L Eosinophils Absolute 0.4 0.0 - 0.4 X10E9/L Basophils Absolute 0.0 0.0 - 0.2 X10E9/L Comprehensive metabolic panel Collection Time: 12/02/23 10:13 PM Result Value Ref Range Sodium 133 (L) 134 - 146 mmol/L Potassium, Bld 3.2 (L) 3.5 - 5.0 mmol/L Chloride 99 98 - 109 mmol/L CO2 25 22 - 32 mmol/L Anion gap 9 5 - 15 mmol/L BUN 27 (H) 5 - 23 mg/dL Creatinine 2.52 (H) 0.40 - 1.00 mg/dL Glucose 106 (H) 65 - 99 mg/dL Calcium 9.8 8.5 - 10.5 mg/dL Total Protein 6.4 6.0 - 8.0 g/dL Albumin 3.8 3.2 - 5.3 g/dL Alkaline Phosphatase 69 39 - 130 U/L AST 24 0 - 41 U/L ALT 12 0 - 31 U/L Total bilirubin 0.6 0.3 - 1.2 mg/dL eGFR (CKD-EPI)non-race dependent 22 (L) >59 ml/min/1.73sq.m Lactate w/ Reflex Collection Time: 12/02/23 10:13 PM Result Value Ref Range Lactate w/ Reflex 0.7 0.4 - 2.0 mmol/L Radiology No results found. HOSPITAL PROBLEM LIST Principal Problem: MIRNA (acute kidney injury) ([facility]) ASSESSMENT & PLAN Acute kidney injury, possibly related to vancomycin use Received 1L NS in ED, continue IVF at 100/hr Consult nephrology for additional recommendations Repeat labs in AM to trend Patient still making urine, denies any changes in amount Post-operative infection of left breast implant Culture growing acid-fast bacilli Implant has been removed and patient has been receiving IV vancomycin and ertapenem per ID Hold antibiotics tonight as recommended by Leelee Lieberman this AM Consult ID for recommendations on when to resume Rechecking random vanco level, creatinine, WBC, platelets, creatinine and LFTs in a.m. per their recommendation Plastic surgeon is Dr. Rosado, will consult if any needs while inpatient Right breast cancer, s/p bilateral mastectomy Followed by Dr. Hope, will consult if any needs while inpatient History of DVT Continue lainey, reports she has been resumed on this post surgery and is doing well with no bleeding HTN Hold lisinopril, lasix and spironolactone until MIRNA improves Insomnia Continue home medications Admission orders placed and home medications reconciled. DVT/VTE prophylaxis: SCD and pharmacologic prophylaxis, DOAC, continue home dose. DC planning: home pending clinical course. CHRIS MCMULLEN PA-C 12/03/2023 12:26 AM [facility] Internal Medicine 7AM-7PM (all facilities): Hubert or anil through [employer]. 7PM-7AM ([facility], [facility]): Hubert or anil, [phone]. 7PM-7AM ([place], [place], [place], [place] and [facility] Rehab): Hubert or anil through [employer]. Chris Mcmullen PA-C 12/03/23 0025 Chris Mcmullen PA-C 12/03/23 0026 Physician Attestation I personally performed a face to face diagnostic evaluation on this patient on 12/03/23 I have repeated the ross portions of the history, review of systems,physical exam, reviewed relevantlaboratory findings and imaging reports/films. I agree with the CELINA findings and the plan . Patient reports improved symptoms this afternoon. On antibiotics per ID, hold medications as above,continue hydration. Appreciate ID and Nephrology input. Elayne Chow MD documented in [facility] Physician Emergency department Note* Kayleigh Adames, - 12/02/2023 10:13 PM EDT Images from the original note were not included. History Chief Complaint Patient presents with Post-op Problem Patient states she had an infected L breast implant and was started on abx on Nov 25. Patient states that on Thursday the implant was removed and Wednesday 11/29 she was discharged from the hospital. Patient states she has been doing her own abx infusions at home through her port since then and saw Dr. Rosado today. Patient states she started having a low grade fever and chills and [facility] Inital Evaluation by Dr. Adames at 10:13 PM. Pt is a 53 y.o. female that presents to the ED for post-op problem. Pt reports that she was at the hospital earlier and after going home she felt very nauseous and after attempting to drink a proteinshake she vomited. Pt also has a risen creatinine that she reports for the visit today. Pt is able to drink water. 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 by: Patient spanish interpreter/translator used?: No Problem List Items Addressed This Visit None Past Medical History: Diagnosis Date Breast cancer ([facility]) 2023 mammary carcinoma Deep vein thrombosis ([facility]) 09/18/2023 Left calf Hypertension Knee pain PONV (postoperative nausea and vomiting) Port-A-Cath in place 05/13/2023 Visual impairment Glasses Past Surgical History: Procedure Laterality Date ARTHROSCOPIC REPAIR ACL Right 2006 ARTHROSCOPIC REPAIR ACL Left 08/26/2021 BREAST BIOPSY Right 2023 mammary carcinoma EXCISION LYMPH NODE AXILLARY DISSECTION Right 10/28/2023 Performed by Christy He MD at [facility] HYSTERECTOMY IMMEDIATE BREAST RECONSTRUCTION WITH TISSUE SMELTER CHARGER PLACEMENT Bilateral 10/28/2023 Performed by Jhon Rosado MD at [facility] INCISION DRAINAGE BREAST Left 11/27/2023 Performed by Jhon Rosado MD at [facility] MAGNETIC SEED LOCALIZATION EXCISION/BIOPSY MASS BREAST (MAG SEED LOCALIZED TARGETED DISSECTION FOR RETRIEVAL OF PREVIOUSLY CLIPPED LYMPH NODE) Right 10/28/2023 Performed by Christy He MD at [facility] MASTECTOMY BREAST SIMPLE RISK REDUCING SKIN SPARING Left 10/28/2023 Performed by Christy He MD at [facility] MASTECTOMY BREAST SIMPLE SKIN SPARING Right 10/28/2023 Performed by Christy eH MD at [facility] MENISCECTOMY Bilateral 2022 PORTACATH PLACEMENT Left left chest REMOVAL SMELTER CHARGER TISSUE BREAST Left 11/27/2023 Performed by Jhon Rosado MD at [facility] RIGHT AXILLARY PROPHYLACTIC BYPASS LYMPHOVENOUS Right 10/28/2023 Performed by Jhon Rosado MD at [facility] TONSILLECTOMY AND ADENOIDECTOMY Age 3 TUMOR REMOVAL back-benign Travel Screening Question Response Have you been in contact with someone who was sick? No / Unsure Do you have any of the following new or worsening symptoms? None of these Have you traveled internationally or domestically in the last month? No Travel History Travel since 11/02/23 No documented travel since 11/02/23 Family History Adopted: Yes Social History Substance and Sexual Activity Drug Use Never Social History Tobacco Use Smoking status: Never Smokeless tobacco: Never Vaping Use Vaping status: Never Used Substance Use Topics Alcohol use: Yes Comment: Socially Drug use: Never Review of Systems Gastrointestinal: Positive for nausea and vomiting. All other systems are reviewed and are negative except as noted. Physical Exam ED Triage Vitals [12/02/232141] Temp Heart Rate Resp BP SpO2 37.3 C (99.1 F) 97 20 (!) 149/99 95 % Temp Source Heart Rate Source Patient Position BP Location FiO2 (%) Oral Pulse Ox Sitting Right arm -- Vitals: 12/02/232 BP: (!) 149/99 Temp: 37.3 C (99.1 F) TempSrc: Oral Pulse: 97 Resp: 20 SpO2: 95% Height: 180.3 cm (5' 11 ) Weight: 94.3 kg (208 lb) Physical Exam Vitals and nursing note reviewed. Constitutional: Appearance: She is not ill-appearing. HENT: Head: Normocephalic and atraumatic. Right Ear: External ear normal. Left Ear: External ear normal. Eyes: General: No scleral icterus. Conjunctiva/sclera: Conjunctivae normal. Neck: Trachea: Trachea and phonation normal. No tracheal deviation. Cardiovascular: Rate and Rhythm: Normal rate. Pulmonary: Effort: No tachypnea or respiratory distress. Musculoskeletal: General: No deformity or signs of injury. Right lower leg: No edema. Left lower leg: No edema. Skin: General: Skin is warm and dry. Findings: No rash. Comments: Surgical incision clean dry intact Neurological: Mental Status: She is alert. GCS: GCS eye subscore is 4. GCS verbal subscore is 5. GCS motor subscore is 6. Psychiatric: Speech: Speech normal. Behavior: Behavior is cooperative. 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 Adames. Chart Reviewed. Date: (12/01). Type of Note: plastic surgeon notes. Notable for: about surgery Chief Complaint: post-op problem Differential Diagnosis includes but is not limited to: MIRNA vs infection Plan of Care: Urine culture, Urinalysis, Sodium urine random, blood culture, CMP, CBC, Lactate w/ Reflex, urine creatinine, Rdm Labs notable for: kidney function elevated 2.52 rest normal On re-evaluation, patient is resting comfortably. Results were discussed. Based on the diagnostic results and physical exam, pt requires admission Amount and/or Complexity of Data Reviewed Labs: ordered. RESULTS Labs: Labs Reviewed CBC WITH AUTO DIFFERENTIAL - Abnormal; Notable for the following components: Result Value RBC count 2.89 (*) Hemoglobin 9.1 (*) Hematocrit 26.0 (*) MPV 6.7 (*) Lymphocytes Absolute 0.5 (*) All other components within normal limits COMPREHENSIVE METABOLIC PANEL - Abnormal; Notable for the following components: Sodium 133 (*) Potassium, Bld 3.2 (*) BUN 27 (*) Creatinine 2.52 (*) Glucose 106 (*) eGFR (CKD-EPI)non-race dependent 22 (*) All other components within normal limits BLOOD CULTURE BLOOD CULTURE URINE CULTURE LACTATE W/ REFLEX SODIUM, URINE, RANDOM URINE CREATININE,RANDOM URINALYSIS VANCOMYCIN, RANDOM Radiology: No results found. NURSING NOTES AND VITALS REVIEWED The nursing notes within the ED encounter and vital signs as below have been reviewed. BP 157/78 Pulse 86 Temp 37.3 C (99.1 F) (Oral) Resp 21 Ht 180.3 cm (5' 11 ) Wt 94.3 kg (208 lb) SpO2 95% BMI 29.01 kg/m PROGRESS NOTES The plan of care has been discussed with patient including today s results, in addition to providing specific details regarding counseling pertaining to the diagnosis and prognosis. All questions were answered at this time and they are agreeable with the plan ADDITIONAL PROVIDER NOTES At this time the patient has objective evidence of an acute process requiring hospitalization or inpatient management. Medications sodium chloride 0.9 % bolus (1,000 mL intravenous New Bag 12/02/23 8313) Medication List None Diagnosis: 1. MIRNA (acute kidney injury) ([facility]) Disposition: Patient's disposition: Admit Patient's condition is stable. Critical Care time: Provider Statement By electronically signing this emergency patient record, the Emergency Physician/WATCH AND CLOCK REPAIRER/PA-C attests that all entries made into the electronic medical record by annamarie Pak prior to the Physician/WATCH AND CLOCK REPAIRER/PA-C signature reflect an accurate accounting of the evaluation and care rendered by that [facility] Phys[facility]/WATCH AND CLOCK REPAIRER/PA-C. The Emergency Physician/WATCH AND CLOCK REPAIRER/PA-C assumes full responsibility for those entries. The Emergency Physician/WATCH AND CLOCK REPAIRER/PA-C also attests that any patient testing or treatment that was instituted by nursing staff in accordance to Emergency Department Preemptive Guidelines have been reviewed and unless so stated elsewhere in this patient chart, the Physician/WATCH AND CLOCK REPAIRER/PA-C agrees with the testing and care provided. Provider Statement: By electronically signing this emergency patient record, the Emergency Physician/WATCH AND CLOCK REPAIRER/PA-C attests that all entries made into the electronic medical record by the scribe prior to the Physician/WATCH AND CLOCK REPAIRER/PA-C signature reflect an accurate accounting of the evaluation and care rendered by that Emergency Physic milagro/WATCH AND CLOCK REPAIRER/PA-C. The Emergency Physician/WATCH AND CLOCK REPAIRER/PA-C assumes full responsibility for those entries. Jeff Becker 12/02/23 2221 Jeff Becker 12/02/23 2305 Kayleigh Adames DO 12/05/23 2354 [facility] Emergency department Note* Kayleigh Adames DO - 12/02/2023 10:13 PM EDT Images from the original note were not included. History Chief Complaint Patient presents with Post-op Problem Patient states she had an infected L breast implant and was started on abx on Nov 25. Patient states that on Thursday the implant was removed and Wednesday 11/29 she was discharged from the hospital. Patient states she has been doing her own abx infusions at home through her port since then and saw Dr. Rosado today. Patient states she started having a low grade fever and chills and [facility] Inital Evaluation by Dr. Adames at 10:13 PM. Pt is a 53 y.o. female that presents to the ED for post-op problem. Pt reports that she was at the hospital earlier and after going home she felt very nauseous and after attempting to drink a proteinshake she vomited. Pt also has a risen creatinine that she reports for the visit today. Pt is able to drink water. 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 by: Patient spanish interpreter/translator used?: No Problem List Items Addressed This Visit None Past Medical History: Diagnosis Date Breast cancer ([facility]) 2023 mammary carcinoma Deep vein thrombosis (CMS-HCC) 09/18/2023 Left calf Hypertension Knee pain PONV (postoperative nausea and vomiting) Port-A-Cath in place 05/13/2023 Visual impairment Glasses Past Surgical History: Procedure Laterality Date ARTHROSCOPIC REPAIR ACL Right 2006 ARTHROSCOPIC REPAIR ACL Left 08/26/2021 BREAST BIOPSY Right 2023 mammary carcinoma EXCISION LYMPH NODE AXILLARY DISSECTION Right 10/28/2023 Performed by Christy eH MD at [facility] HYSTERECTOMY IMMEDIATE BREAST RECONSTRUCTION WITH TISSUE SMELTER CHARGER PLACEMENT Bilateral 10/28/2023 Performed by Jhon Rosado MD at [facility] INCISION DRAINAGE BREAST Left 11/27/2023 Performed by Jhon Rosado MD at [facility] MAGNETIC SEED LOCALIZATION EXCISION/BIOPSY MASS BREAST (MAG SEED LOCALIZED TARGETED DISSECTION FOR RETRIEVAL OF PREVIOUSLY CLIPPED LYMPH NODE) Right 10/28/2023 Performed by Christy He MD at [facility] MASTECTOMY BREAST SIMPLE RISK REDUCING SKIN SPARING Left 10/28/2023 Performed by Christy He MD at [facility] MASTECTOMY BREAST SIMPLE SKIN SPARING Right 10/28/2023 Performed by Christy He MD at [facility] MENISCECTOMY Bilateral 2022 PORTACATH PLACEMENT Left left chest REMOVAL SMELTER CHARGER TISSUE BREAST Left 11/27/2023 Performed by Jhon Rosado MD at [facility] RIGHT AXILLARY PROPHYLACTIC BYPASS LYMPHOVENOUS Right 10/28/2023 Performed by Jhon Rosado MD at [facility] TONSILLECTOMY AND ADENOIDECTOMY Age 3 TUMOR REMOVAL back-benign Travel Screening Question Response Have you been in contact with someone who was sick? No / Unsure Do you have any of the following new or worsening symptoms? None of these Have you traveled internationally or domestically in the last month? No Travel History Travel since 11/02/23 No documented travel since 11/02/23 Family History Adopted: Yes Social History Substance and Sexual Activity Drug Use Never Social History Tobacco Use Smoking status: Never Smokeless tobacco: Never Vaping Use Vaping status: Never Used Substance Use Topics Alcohol use: Yes Comment: Socially Drug use: Never Review of Systems Gastrointestinal: Positive for nausea and vomiting. All other systems are reviewed and are negative except as noted. Physical Exam ED Triage Vitals [12/02/232] Temp Heart Rate Resp BP SpO2 37.3 C (99.1 F) 97 20 (!) 149/99 95 % Temp Source Heart Rate Source Patient Position BP Location FiO2 (%) Oral Pulse Ox Sitting Right arm -- Vitals: 12/02/23 2142 BP: (!) 149/99 Temp: 37.3 C (99.1 F) TempSrc: Oral Pulse: 97 Resp: 20 SpO2: 95% Height: 180.3 cm (5' 11 ) Weight: 94.3 kg (208 lb) Physical Exam Vitals and nursing note reviewed. Constitutional: Appearance: She is not ill-appearing. HENT: Head: Normocephalic and atraumatic. Right Ear: External ear normal. Left Ear: External ear normal. Eyes: General: No scleral icterus. Conjunctiva/sclera: Conjunctivae normal. Neck: Trachea: Trachea and phonation normal. No tracheal deviation. Cardiovascular: Rate and Rhythm: Normal rate. Pulmonary: Effort: No tachypnea or respiratory distress. Musculoskeletal: General: No deformity or signs of injury. Right lower leg: No edema. Left lower leg: No edema. Skin: General: Skin is warm and dry. Findings: No rash. Comments: Surgical incision clean dry intact Neurological: Mental Status: She is alert. GCS: GCS eye subscore is 4. GCS verbal subscore is 5. GCS motor subscore is 6. Psychiatric: Speech: Speech normal. Behavior: Behavior is cooperative. 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 Adames. Chart Reviewed. Date: (12/01). Type of Note: plastic surgeon notes. Notable for: about surgery Chief Complaint: post-op problem Differential Diagnosis includes but is not limited to: MIRNA vs infection Plan of Care: Urine culture, Urinalysis, Sodium urine random, blood culture, CMP, CBC, Lactate w/ Reflex, urine creatinine, Rdm Labs notable for: kidney function elevated 2.52 rest normal On re-evaluation, patient is resting comfortably. Results were discussed. Based on the diagnostic results and physical exam, pt requires admission Amount and/or Complexity of Data Reviewed Labs: ordered. RESULTS Labs: Labs Reviewed CBC WITH AUTO DIFFERENTIAL - Abnormal; Notable for the following components: Result Value RBC count 2.89 (*) Hemoglobin 9.1 (*) Hematocrit 26.0 (*) MPV 6.7 (*) Lymphocytes Absolute 0.5 (*) All other components within normal limits COMPREHENSIVE METABOLIC PANEL - Abnormal; Notable for the following components: Sodium 133 (*) Potassium, Bld 3.2 (*) BUN 27 (*) Creatinine 2.52 (*) Glucose 106 (*) eGFR (CKD-EPI)non-race dependent 22 (*) All other components within normal limits BLOOD CULTURE BLOOD CULTURE URINE CULTURE LACTATE W/ REFLEX SODIUM, URINE, RANDOM URINE CREATININE,RANDOM URINALYSIS VANCOMYCIN, RANDOM Radiology: No results found. NURSING NOTES AND VITALS REVIEWED The nursing notes within the ED encounter and vital signs as below have been reviewed. BP 157/78 Pulse 86 Temp 37.3 C (99.1 F) (Oral) Resp 21 Ht 180.3 cm (5' 11 ) Wt 94.3 kg (208 lb) SpO2 95% BMI 29.01 kg/m PROGRESS NOTES The plan of care has been discussed with patient including today s results, in addition to providing specific details regarding counseling pertaining to the diagnosis and prognosis. All questions were answered at this time and they are agreeable with the plan ADDITIONAL PROVIDER NOTES At this time the patient has objective evidence of an acute process requiring hospitalization or inpatient management. Medications sodium chloride 0.9 % bolus (1,000 mL intravenous New Bag 12/02/232236) Medication List None Diagnosis: 1. MIRNA (acute kidney injury) ([facility]) Disposition: Patient's disposition: Admit Patient's condition is stable. Critical Care time: Provider Statement By electronically signing this emergency patient record, the Emergency Physician/WATCH AND CLOCK REPAIRER/PA-C attests that all entries made into the electronic medical record by annamarie Pak prior to the Physician/WATCH AND CLOCK REPAIRER/PA-C signature reflect an accurate accounting of the evaluation and care rendered by that [facility] Physician/WATCH AND CLOCK REPAIRER/PA-C. The Emergency Physician/WATCH AND CLOCK REPAIRER/PA-C assumes full responsibility for those entries. The Emergency Physician/WATCH AND CLOCK REPAIRER/PA-C also attests that any patient testing or treatment that was instituted by nursing staff in accordance to Emergency Department Preemptive Guidelines have been reviewed and unless so stated elsewhere in this patient chart, the Physician/WATCH AND CLOCK REPAIRER/PA-C agrees with the testing and care provided. Provider Statement: By electronically signing this emergency patient record, the Emergency Physician/WATCH AND CLOCK REPAIRER/PA-C attests that all entries made into the electronic medical record by the scribe prior to the Physician/WATCH AND CLOCK REPAIRER/PA-C signature reflect an accurate accounting of the evaluation and care rendered by that Emergency Physic milagro/WATCH AND CLOCK REPAIRER/PA-C. The Emergency Physician/WATCH AND CLOCK REPAIRER/PA-C assumes full responsibility for those entries. Jeff Becker 12/02/23 2221 Jeff Becker 12/02/23 2305 Kayleigh Adames DO 12/05/23 7899 documented in [facility] encounter[facility] History of Present illness Narrative* AMEENA Vallejo - 12/02/2023 9:25 PM EDT 1300: spoke with Purvi RN from [facility] who received call from [facility] RN to report Vanco level of 33. She stated that infusion center RN then infused patient's vancomycin. Reportedly, patient had brought her vanco dose with her when she went to infusion center to get labs drawn and asked RN at [facility] to cable hooker her vanco while she was there. Purvi stated she called [facility] to speak with pharmacist regarding vanco trough and that the patient received vanco dose. I called RN at infusion center (John) and provided clinic fax number to send lab results. AMEENA Vallejo 12/02/232132 documented in this encounterUpper Valley [facility] Center10-02-2024 History of Present illness Narrative* Shanice Shook, AMEENA - 12/02/2023 7:30 PM EDT Patient calls after hours service at this time to report nausea, vomiting, and fever at home. Overall states that she is not feeling well Of note, my partner Leelee addressed her lab work earlier in the day and patient was instructed to HOLD her antibiotics secondary to elevated creat with planned re draw tomorrow. However, patient calls after hours now reported the above symptoms Patient is currently undergoing Rx with Vanco and Invanz for left breast cellulitis and left breastinfected seroma Status post left breast I and D with removal of tissue tortilla maker 11/27/2023 I have directed patient to the ER at this time for evaluation . Patient states she will report to [facility] ER Once she [facility] to [facility] we would like the following: Consideration for admission Check Blood Cultures Check Creat Please contact our service for further direction ([facility], Dr Carlene Noguera) AMEENA Salazar 12/02/231940 documented in this encounterUpper Valley Medical Center10-02-2024 Miscellaneous Notes* Telephone Encounter - Kendra Lewis - 12/02/2023 7:20 PM EDT Contract: 174 RE Chills, Nausea, Fever 100.9 * Telephone Encounter - Kendra Lewis - 12/02/2023 7:20 PM EDT Secure chat sent to Shanice Shook CNP documented in this encounterUpper Valley [facility] Center10-02-2024 Telephone encounter Note* Telephone Encounter - Kendra Lewis - 12/02/2023 7:20 PM EDT Contract: 174 RE Chills, Nausea, Fever 100.9 [facility] Telephone encounter Note* Telephone Encounter - Kendra Lewis - 12/02/2023 7:20 PM EDT Secure chat sent to Shanice Shook CNP [facility] History of Present illness Narrative* AMEENA Gomez - 12/02/2023 7:06 PM EDT Pt with increase to creatinine to 2.56 from this morning December 02 2023, previous level 0.62 fromSept2023 Vanco trough 33 from this morning December 02, 2023 at 8:30 a.m., I have confirmed level was drawn atthe correct time as last dose was administered at 2029 yesterday. Patient currently undergoing antibiotic course of treatment with ertapenem as well as vancomycin Both medications on hold Rechecking random vanco level, creatinine, WBC, platelets, creatinine and LFTs in a.m. Discussed with bio script pharmacist Zohra from [facility]. AMEENA Gomez 12/02/23 191 documented in this encounterUpper Valley Medical Center10-02-2024 History of Present illness Narrative* Jhon Rosado MD - 12/02/2023 10:00 AM EDT [facility] [address] Office Jhon Rosado MD, PhD Marisela Cuevas, AMEENA Smallwood PA-C Plastic Surgery Progress Note Reason for visit : 1 week postoperative appointment. History of present illness: Ike Jones 53 y.o. is here today for a follow up after I&D of left breast with removal of left breast tissue tortilla maker on 11/27/2023. She presents to the office today for routine follow-up. She states that she is doing well. She is tolerating IV antibiotics.She reports drain outputs have been less than 30 mls a day for 3 days. Review of systems: Negative for fever or chills. Denies surgical site concerns. Physical Examination: Vitals: 12/02/23 1021 BP: 142/88 Pulse: 84 Resp: 14 Temp: 36.3 C (97.4 F) Body mass index is 29.29 kg/m . General exam: Alert and oriented x 3, comfortable, non-toxic. S1, S2. Nonlabored breathing. Abdomen soft/non-tender/non-distended. Extremities warm, well perfused. Negative Gretchen's sign. Focused examination : left breast incision is clean, dry, and intact. No erythema or necrosis noted. No fluid collections palpated. Nipple areolar complex is surgically absent. ARTEMIO drain is in place, draining serosanguinous fluid. Left upper chest port is accessed. Impression: 1. Encounter for postoperative care 2. Acquired absence of breast, bilateral 3. S/P breast reconstruction, bilateral 4. Infection of breast implant, subsequent encounter Recommendations: Patient is doing well postoperatively. Discussed with patient that she did positive aspiration cultures for acid-fast bacilli. She does remain on IV antibiotics per Infectious Disease. We are still awaiting final results of the fluid aspiration. Her ARTEMIO drain was removed in office today. Patient tolerated well. Tubing was intact. Discussed with patient keeping area covered for 2 days, then okay to leave open to air. Follow up next week for tissue tortilla maker filled. She was advised to call the office any questions orconcerns in the interim. - Marisela Cuevas APRN-GARMENT STEAMER 12/02/23 11:55 AM I, JHON ROSADO MD, PHD personally performed the face to face evaluation on this patient. I discussed with the patient and confirmed the accuracy and completeness of the aforementioned history,and I personally performed the clinical examination of the patient. I have established and discussed the course of treatment with the patient. Jhon Rosado MD, PhD [facility] Total time spent was 15 minutes: Preparing to see the patient (e.g., review of tests) Obtaining and/or reviewing separately obtained history Performing a medically appropriate examination and/or evaluation Counseling and educating the patient/family/caregiver Ordering medications, tests, or procedures Referring and communicating with other health laboratory animal care veterinarian (not separately reported) Documenting clinical information in the electronic or other health record Independently interpreting results (not separately reported) and communicating results to the patient/family/caregiver Care coordination (not separately reported) Please note that portions of this note were generated using voice recognition M*Modal dictation software. Although every effort was made to ensure the accuracy of this automated advertising representative, some errors in advertising representative may have occurred. documented in this encounterOhioHealth Southeastern Medical CenterExhibia10-02-2024 Miscellaneous Notes* Telephone Encounter - Elisa Vallejo RN - 12/02/2023 10:00 AM EDT Transition of Care (*required) *Additional Questions/Concerns Requiring PCP Follow-Up: -Patient does not have DENNY appointment scheduled This documentation is being used for Transition of Care purposes: Yes Goal: Patient will demonstrate a safe transition from hospital to home Diagnosis on Discharge: Cellulitis of left breast left breast I and D with removal of tissue tortilla maker 11/27/2023 Discharge Specialty: Infectious Disease *Name of Discharging Facility: [facility] Date of Facility Discharge: Admission 11/26/23 Discharge 11/30/23 Date of Interactive Contact and Name of Vertical Lathe Operator: 12/02/23 1011 am Spoke to patient. She was at Dr. Barbosa office. Patient was agreeable for telegraphic typewriter operator to call back in the afternoon 12/02/23 1:12 pm Spoke to patient *Medication Review Completed: No START taking: ertapenem 1,000 mg in sodium chloride 0.9 % 50 mL IVPB MINI-BAG Plus oxyCODONE (ROXICODONE) vancomycin 1,500 mg in sodium chloride 0.9 % 500 mL IVPB STOP taking: enoxaparin 40 mg/0.4 mL syringe (LOVENOX) ASK how to take: albuterol 2.5 mg /3 mL (0.083 %) nebulizer solution (PROVENTIL,VENTOLIN) capecitabine 500 mg chemo tablet (XELODA) dexAMETHasone 1 mg tablet (DECADRON) ferrous sulfate 325 (65 FE) mg tablet fluticasone propionate 50 mcg/actuation nasal spray (FLONASE) gabapentin 300 mg capsule (NEURONTIN) predniSONE 5 mg tablet (DELTASONE) Medication Reconciliation Questions/Concerns: -Reviewed discharge changes to medications -Declines medications review -Patient picked up medications and started taking as prescribed -Denies questions or concerns *Follow Up Appointments with Providers: Primary: RICHIE HANNA APRN-GARMENT STEAMER Specialty: Infectious Disease 12/08/23 Specialty: Specialty: Review of Pending Lab/Diagnostic Tests and Plan for Completion: Creatinine includes GFR, serum 3 times a week Liver Panel 3 times a week Platelet count 3 times a week Vancomycin, trough 3 times a week WBC 3 times a week Assessment and Support of Treatment Regimen Adherence and Medication Management: -Patient doing good. Patient had a follow up appointment today with Dr. Barbosa. ARTEMIO drain was removed. Patient was instructed to keep it covered for 2 days. Patient denies pain. 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 She states this is not new. Denies Chest pain and SOB. Patient is going to [facility] three days a week for dressing change and lab work. Patients next appointment is on 12/04/23. Patient is receiving IV antibiotics at home. Denies new or worsening symptoms -Denies questions or concerns Education Provided by ACN to Support Self-Management, Independent Living and ADLs: -Reviewed discharge instructions -call the office for questions, concerns, new, worsening or recurring S/S -Call 911 or go to ED for urgent issues such as chest pain or sudden dyspnea -Verbalizes understanding of above Communication with Home Health Agencies and Other Services Utilized/Needed by the Patient: NA documented in this encounterUniversity Of Vermont Medical CenterHotelscan [id number] Telephone encounter Note* Telephone Encounter - Elisa Vallejo RN - 12/02/2023 10:00 AM EDT Transition of Care (*required) *Additional Questions/Concerns Requiring PCP Follow-Up: -Patient does not have DENNY appointment scheduled This documentation is being used for Transition of Care purposes: Yes Goal: Patient will demonstrate a safe transition from hospital to home Diagnosis on Discharge: Cellulitis of left breast left breast I and D with removal of tissue tortilla maker 11/27/2023 Discharge Specialty: Infectious Disease *Name of Discharging Facility: [facility] Date of Facility Discharge: Admission 11/26/23 Discharge 11/30/23 Date of Interactive Contact and Name of Vertical Lathe Operator: 12/02/23 1011 am Spoke to patient. She was at Dr. Barbosa office. Patient was agreeable for telegraphic typewriter operator to call back in the afternoon 12/02/23 1:12 pm Spoke to patient *Medication Review Completed: No START taking: ertapenem 1,000 mg in sodium chloride 0.9 % 50 mL IVPB MINI-BAG Plus oxyCODONE (ROXICODONE) vancomycin 1,500 mg in sodium chloride 0.9 % 500 mL IVPB STOP taking: enoxaparin 40 mg/0.4 mL syringe (LOVENOX) ASK how to take: albuterol 2.5 mg /3 mL (0.083 %) nebulizer solution (PROVENTIL,VENTOLIN) capecitabine 500 mg chemo tablet (XELODA) dexAMETHasone 1 mg tablet (DECADRON) ferrous sulfate 325 (65 FE) mg tablet fluticasone propionate 50 mcg/actuation nasal spray (FLONASE) gabapentin 300 mg capsule (NEURONTIN) predniSONE 5 mg tablet (DELTASONE) Medication Reconciliation Questions/Concerns: -Reviewed discharge changes to medications -Declines medications review -Patient picked up medications and started taking as prescribed -Denies questions or concerns *Follow Up Appointments with Providers: Primary: RICHIE HANNA APRN-ESPERANZA Specialty: Infectious Disease 12/08/23 Specialty: Specialty: Review of Pending Lab/Diagnostic Tests and Plan for Completion: Creatinine includes GFR, serum 3 times a week Liver Panel 3 times a week Platelet count 3 times a week Vancomycin, trough 3 times a week WBC 3 times a week Assessment and Support of Treatment Regimen Adherence and Medication Management: -Patient doing good. Patient had a follow up appointment today with Dr. Barbosa. ARTEMIO drain was removed. Patient was instructed to keep it covered for 2 days. Patient denies pain. 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 She states this is not new. Denies Chest pain and SOB. Patient is going to [facility] three days a week for dressing change and lab work. Patients next appointment is on 12/04/23. Patient is receiving IV antibiotics at home. Denies new or worsening symptoms -Denies questions or concerns Education Provided by ACN to Support Self-Management, Independent Living and ADLs: -Reviewed discharge instructions -call the office for questions, concerns, new, worsening or recurring S/S -Call 911 or go to ED for urgent issues such as chest pain or sudden dyspnea -Verbalizes understanding of above Communication with Home Health Agencies and Other Services Utilized/Needed by the Patient: NA [facility]09-26-2024 History of Present illness Narrative* Jhon Rosado MD - 11/26/2023 11:45 AM EDT [facility] Re[facility] [address] Office Jhon Rosado MD, PhD Marisela Cuevas APRN-GARMENT STEAMER Shereen Smallwood PA-C Plastic Surgery Progress Note Reason for visit : wound check. History of present illness: Ike Jones 53 y.o. is here today for a follow up after bilateral skin sparing mastectomies and right axillary node dissection (Dr. He) with immediate bilateral breast reconstruction with placement of tissue expanders and right prophylactic lymphovenous bypass on 10/29/23. She presents to the office today for evaluation of her left breast. She was seen in the office yesterday and was noted to have left breast seroma and slight redness to her left breast. This was discussed with Dr. Rosado who wanted to evaluate the patient in the office today. She does report that she feels her breast is slightly more red and warm compared to yesterday. Review of systems: Negative for fever or chills. Physical Examination: Vitals: 11/26/23 1154 BP: 141/82 Pulse: 93 Resp: 14 There is no height or weight on file to calculate BMI. General exam: Alert and oriented x 3, comfortable, non-toxic. S1, S2. Nonlabored breathing. Abdomen soft/non-tender/non-distended. Extremities warm, well perfused. Negative Gretchen's sign. Focused examination : left breast incision is clean and dry. She does have a small 1 cm x 1cm woundpresent to t point of her left breast. Left breast with erythema and induration present. No purulent drainage. Impression: Left breast cellulitis and possible infected seroma in the setting tissue tortilla maker reconstruction Recommendations: discussed with patient that given the appearance of her breast we would like to becautious and admit her to the hospital for IV antibiotics. Discussed that we have a suspicion for infection. We discussed that we would like to proceed with removal of her tissue tortilla maker tomorrow and place a drain. We discussed since she does need post operative radiation that we would not want toplace a new tissue tortilla maker. Direct admission has been started. Please note that portions of this note were generated using voice recognition M*Modal dictation software. Although every effort was made to ensure the accuracy of this automated advertising representative, some errors in advertising representative may have occurred. IJHON MD, PHD personally performed the face to face evaluation on this patient. I discussed with the patient and confirmed the accuracy and completeness of the aforementioned history,and I personally performed the clinical examination of the patient. I have established and discussed the course of treatment with the patient. Jhon Rosado MD, PhD [facility] Total time spent was 25 minutes: Preparing to see the patient (e.g., review of tests) Obtaining and/or reviewing separately obtained history Performing a medically appropriate examination and/or evaluation Counseling and educating the patient/family/caregiver Ordering medications, tests, or procedures Referring and communicating with other health laboratory animal care veterinarian (not separately reported) Documenting clinical information in the electronic or other health record Independently interpreting results (not separately reported) and communicating results to the patient/family/caregiver Care coordination (not separately reported) documented in this encounterUniversity Of Vermont Medical CenterTAKO08-27-2024 NotePatient: Tia Jones Procedure Information Date/Time: 10/27/23729 Procedure: Right heart cath (Right) - pc approved Location: [facility] SAP BI ARCHITECT 2 BIPLANE / [facility] (Cath) Providers: Clint Villanueva MD Clinical information reviewed: Allergies Meds OB Status Physical Exam Airway Mallampati: II TM distance: >3 FB Neck ROM: full Cardiovascular Rhythm: regular Rate: normal (-) murmur Dental Pulmonary (-) decreased breath sounds, wheezes, rales Abdominal Abdomen: soft Bowel sounds: normal Anesthesia Plan ASA 3 Anesthetic plan and risks discussed with patient. Use of blood products discussed with patient who consented to blood products. Plan discussed with attending and fellow. Additional Equipment RequestsSum[facility]08-06-2024 Note MD Terri Canales MA Are they doing a procedure for her?? Did she have the echocardiogram on 09/10? She will need a follow up lower extremity venous duplex in 6 weeks since they reported a peroneal DVT on the current study, in order to rule out progression. I just uploaded the echo into multimedia manager. It didn't come to us because Dr. Hope ordered it.[facility]07-01-2024 NoteUT Cardiology - [facility] Subjective Ike Jones is a 52 y.o. year old female patient being seen to [facility] care. Ref from Dr. Hope for LE edema, despite being on 3 diuretics. She is currently undergoing chemotherapy for breast cancer. She saw [facility] Cardiology in Apr and they ordered baseline echo to be completed prior to chemotherapy. She is scheduled for another echo in 2 weeks. She has previously seen [facility] cardiology in [place] for hypertension. She denies chest pain, SOB, [...] Use Topics Alcohol use: Not Currently HPI Ike is seen as a new patient due [...] Take 20 mg (more content not included)... [facility]03-21-2024 Miscellaneous Notes* Tumor Conference Note - Yue AMEENA Lora - 05/21/2023 11:59 PM EDT Images from the original note were not included. Multidisciplinary Cancer Conference Center Note Patient Name: Ike Jones : 1970 Conference Type:Breast Conference Date: 05/21/23 Patient's Care Team: Patient Care Team: AMEENA Diaz as PCP - General Aarti Hope MD as Consulting Physician (Internal Medicine) Evan Thompson DO as Referring Physician (Obstetrics and Gynecology) Physicians in attendance: Dr. Melton - moderator Site/Laterality/Histology: 03/26/2023 U/S guided, right breast 4 o'clock, core biopsy ([facility]: re-read TTH): 11mm, invasive ductal carcinoma with areas of necrosis grade 3 score=8. LVI negative. ER12-15% ME- HER2/Yohan by IHC negative 0. Patient Presentation: patient palpated lump - - > abnormality seen on imaging; right axillary lymphadenopathy on CBE Cancer Staging Malignant neoplasm of lower-inner quadrant of right breast of female, estrogen receptor positive (CMS-HCC) Staging form: Breast, AJCC 8th Edition - Clinical: Stage IIIC (cT2, cN3, cM0, G3, ER+, ME-, HER2-) - Signed by Christy He MD [...] regarding trials, Please call Clinical Research at [phone] National Guidelines discussed (NCCN, AUA, NCI, etc): [...] can be directed to the Cancer Registry: [phone] documented in this encounterUpper Valley Medical Center03-21-2024 Progress note* Tumor Conference Note - AMEENA Cowart - 05/21/2023 11:59 PM EDT Images from the original note were not included. Multidisciplinary Cancer Conference Center Note Patient Name: Ike Jones : 1970 Conference Type:Breast Conference Date: 05/21/23 Patient's Care Team: Patient Care Team: AMEENA Diaz as PCP - General Aarti Hope MD as Consulting Physician (Internal Medicine) Evan Thompson DO as Referring Physician (Obstetrics and Gynecology) Physicians in attendance: Dr. Melton - moderator Site/Laterality/Histology: 03/26/2023 U/S guided, right breast 4 o'clock, core biopsy ([facility]: re-read TT): 11mm, invasive ductal carcinoma with areas of necrosis grade 3 score=8. LVI negative. ER12-15% ME- HER2/Yohan by IHC negative 0. Patient Presentation: patient palpated lump - - > abnormality seen on imaging; right axillary lymphadenopathy on CBE Cancer Staging Malignant neoplasm of lower-inner quadrant of right breast of female, estrogen receptor positive ([facility]-HCC) Staging form: Breast, AJCC 8th Edition - Clinical: Stage IIIC (cT2, cN3, cM0, G3, ER+, ME-, HER2-) - Signed by Christy He MD [...] regarding trials, Please call Clinical Research at [phone] National Guidelines discussed (NCCN, AUA, NCI, etc): [...] can be directed to the Cancer Registry: [phone] [email or web address] Work Phone: [phone] Miscellaneous Notes* Telephone Encounter - Niurka Stockton RN - 05/14/2023 3:26 PM EDTSummary: Post-biopsy assessment Call placed to patient to check status following recent axilla biopsy. Patient reports lots of bruising and some tenderness with pressure @ biopsy site. Patient is aware of biopsy results. She was encouraged to contact the Breast Center if she develops any new problems at biopsy site. Voices understanding. Support offered. documented in this encounterUniversity Of Vermont Medical CenterTAKO03-14-2024 Telephone encounter Note* Telephone Encounter - Niurka Stockton RN - 05/14/2023 3:26 PM EDTSummary: Post-biopsy assessment Call placed to patient to check status following recent axilla biopsy. Patient reports lots of bruising and some tenderness with pressure @ biopsy site. Patient is aware of biopsy results. She was encouraged to contact the Breast Center if she develops any new problems at biopsy site. Voices understanding. Support offered. [facility]03-12-2024 Miscellaneous Notes* Telephone Encounter - Ike Irvin RN - 05/12/2023 7:51 AM EDT Notified Emiliana at Dr He office faxing over reports. documented in this encounterUpper Valley Medical Center03-12-2024 Telephone encounter Note* Telephone Encounter - Ike Irvin RN - 05/12/2023 7:51 AM EDT Notified Emiliana at Dr He office faxing over reports. [facility]03-08-2024 History of Present illness Narrative* Niurka Stockton RN - 05/08/2023 2:06 PM ESTSummary: Post-biopsy Discharge Instructions 13:50 Met with patient following pre-op MRI and Rt. axilla biopsy to review post-biopsy care instructions. Reviewed written instructions and answered related questions. Gifted with a basket of Care, reviewing its contents and suggestions for its use; patient will complete permission slip @ home. Enc ouraged to call if any concerns related to biopsy site/breast should occur. Provided contact numbers and office hours. Written copy of care instructions provided to patient. Voices understanding of all information reviewed. documented in this encounterUpper Valley Medical Center02-27-2024 History of Present illness Narrative* Christy He MD - 04/28/2023 8:00 AM EST Images from the original note were not included. 04/28/23 DIAGNOSIS: Ike Jones is a 52 y.o. female who presents to the Breast Surgery Clinic for evaluation and recommendations regarding her recently diagnosed right breast cancer, IDC grade 3, ER weakly +, ME -, Her 2 Negative (IHC score 0). HISTORY OF PRESENT ILLNESS : Ike Jones is a 52 y.o. female who self-palpated a mass in her right breast sometime in early March,. Mammogram was ordered for investigation and performed on 03/07/2023. There was anew partially circumscribed 2.6 x 2 cm mass [...] genetic testing? Yes Do you have Ashkenazi Faith ancestry? No HEALTH HISTORY: The patient's past medical history, medications, and allergies have been reviewed in [facility]. PAST MEDICAL HISTORY: Past Medical History: Diagnosis [...] mg total) by mouth in the morning., Disp:90 tablet, Rfl: 2 fluticasone propionate (FLONASE) 50 mcg/actuation nasal spray, 1 spray in each nostril Nasally Oncea day, Disp: , Rfl: lisinopril-hydroCHLOROthiazide (PRINZIDE,ZESTORETIC) 20-12.5 [...] BP Postition: Sitting, BP CUFF SIZE: M (9- 13 inches)) Pulse74 Resp 16 Ht 180.3 cm (5' 10.98 ) Wt 98.9 kg (218 lb) BMI 30.42 kg/m Weight: Weight: 98.9 kg (218 lb) General Appearance: Ike is a well-appearing female who is in no acute distress. Head: Normocephalic, without obvious abnormality, atraumatic Neck: There is no appreciable lymphadenopathy in the cervical, supraclavicular, and infraclavicularlymph node basins. Breast: Examined in upright and [...] lower inner quadrant of right breast DIAGNOSIS: Ike Jones is a 52 y.o. female with grade 3 right breast invasive carcinoma, ER weakly positive/ME negative, Her-2 negative. Cancer Staging No matching staging information was found for the patient. PLAN OF CARE: 1. Surgery. In the terms of the surgical management of her breast cancer, we discussed both mastectomy and breast conservation surgery--lumpectomy coupled with whole breast radiation. She was advisedthat the 10-year survival is equivalent between these [...] exam today. She is scheduled for both PETand breast MRI. I suspect that both of [...] radiation is an integral component of treatment. Gracywill be evaluated by our radiation oncologists for [...] which included counseling and coordination of care withthe patient as well as describing her diagnosis and management of her breast cancer. Breast radiographic imaging and pathology were reviewed at length. The various surgical options, pros and cons of each and expected outcomes were explained at length.She was informed of the general risks of [...] Need right ax biopsy Referral placed to [facility] rad onc RV 3 months, PRS referral at that time for possible LYMPHA She voiced understanding of her treatment plan and was encouraged to contact the [facility] Clinicwith any questions or concerns. Total time spent was 80 minutes: Preparing to see the patient (e.g., review of tests) Obtaining and/or reviewing separately obtained history Performing a medically appropriate examination and/or evaluation Counseling and educating the patient/family/caregiver Ordering medications, tests, or procedures Referring and communicating with other health laboratory animal care veterinarian (not separately reported) Documenting clinical information in the electronic or other health record Independently interpreting results (not separately reported) and communicating results to the patient/family/caregiver Please note that portions of this note were generated using voice recognition M*Modal dictation software. Although every effort was made to ensure the accuracy of this automated advertising representative, some errors in advertising representative may have occurred. Christy He MD [facility] Breast Surgery [phone] documented in this encounterUpper Valley Medical Center02-11-2024 NoteChief Complaint consultation for breast cancer/discuss port placement [...] swallowing difficulties, no hearing loss, no ear infection(s),no nose bleeds. Cardiovascular: normal blood pressure, no [...] quadrant of right female breast) plan left [id number] insertion under anesthesia, informed consent obtained. Ancef [...] of back, Meniscectomy, Repair of anterior cruciate ligamentof knee joint, Tonsillectomy. Medications chlorthalidone cyclobenzaprine lisinopril [...] influenza virus vaccine, inactivate (more content not included)...[facility] - YoungstownComment on above:Result Comment: Electronically Signed By: BRENNON JAMESON, Sandrita Mays\Date and Time Signed: 04/12/23 19:14 [id number] History of Present illness Narrative* Catie Walker LPN - 04/02/2023 11:30 AM EST Reason for Appointment: Patient ID: Ike Eason Widchen is a 52 y.o. female who presents for abnormal test results (Discuss the results of her abnormal mammogram results done @ [facility]) Patient presents today for Consult appointment. Current Medications: has a current medication list which includes the following prescription(s): carvedilol, chlorthalidone, lisinopril-hydrochlorothiazide, spironolactone, trazodone, cyclobenzaprine, fluticasone, hydrochlorothiazide, lisinopril- hydrochlorothiazide, metoprolol succinate xl, and potassium chloride cr. [...] nursing note reviewed. Exam conducted with a director regulatory compliance present. Vitals: Estimated body mass index is [...] diagnostic right breast mammogram done at [facility] on 03/20/23. Results were highly suggestive of malignancy and radiology recommended that patient obtain an ultrasound guided breast biopsy. Patient had ultrasound guided right breast biopsy obtained at [facility] on 03/26/23, biopsy was sent to pathology at [facility]. Reviewed results with patient and discussed plan of care. Patient to have referral to Oncology Dr. Hope and General Surgery Dr. Willett. [facility] and will reach out to office with [...] if patient does not hear from medical coding specialist by the time she receives letter to contact Specialist to schedule. Advised patient on VM to call office with any questions. --Catie Johnson LPN documented in this encounterFreeman Neosho [id number] Hospital Discharge instructions Patient Education 07/14/2022 14:20:40 BMI for Adults BMI for Adults What is BMI? Body mass index (BMI) is a number that is calculated from a person's weight and height. BMI can help estimate how much of a person's weight is composed of fat. BMI does not measure body fat directly.Rather, it is an alternative to procedures that [...] your height. Both height and weight are measured,and the BMI is calculated from those numbers. This can be done either in [place] or metric measurements. Note that charts and online BMI calculators are available to help you find your BMI quickly and easily without having to do these calculations yourself. To calculate your BMI in [place] measurements: 1.Measure your weight in pounds [...] inches squared measurement is 70 inches x 70inches, which equals 4,900 inches squared. 4.Divide the [...] muscular build, such as an athlete, may havea BMI that is higher than 24.9. In cases like these, BMI is not an accurate measure of body fat. To determine if excess body fat is the cause of a BMI of 25 or higher, further assessments may needto be done by a health care provider. BMI is usually interpreted in the same way for men and women. Where to find more information For more information about BMI, including tools to quickly calculate your BMI, go to these websites: Centers for Disease Control and Prevention: www.cdc.gov [place] Heart Association: www.heart.org National Heart, Lung, and Blood [place]: www.nhlbi.nih.gov Summary Body mass index (BMI) is a number that is calculated from a person's weight and height. BMI may help estimate how much of a person's weight is composed of fat. BMI can help identify thosewho may be at higher risk for certain medical problems. BMI can be measured using [place] measurements or metric measurements. BMI charts are used to identify whether you are underweight, normal weight, overweight, or obese. This information is not intended to replace advice given to you by your health care provider. Make sure you discuss any questions you have with your health care provider. Document Revised: 11/09/2019 Document Reviewed: 09/16/2019 [employer] Patient Education 2022 A V.E.T.S.c.a.r.e.. 07/14/2022 14:20:38 Upper Respiratory Infection, Adult Upper Respiratory Infection, Adult An upper respiratory infection (URI) is a common viral infection of the nose, throat, and upper airpassages that lead to the lungs. The most [...] medicines to help relieve symptoms, such as: Duis-nku-mbhpyni cold medicines. Cough suppressants. Coughing is a [...] and other clear broths. General instructions Take vpvx-rdd-wczmfct and prescription medicines only as told by your health care provider. These include cold medicines, fever reducers, and cough suppressants. Do not use any products that contain nicotine or tobacco. These products include cigarettes, chewing tobacco, and vaping devices, such as e-cigarettes. If you need help quitting, ask your health careprovider. Stay away from secondhand smoke. Stay up [...] and water are not available, use hand sys dir. Avoid touching your mouth, face, eyes, or [...] provider. Document Revised: 09/18/2021 Document Reviewed: 09/18/2021 [employer] Patient Education 2022 A V.E.T.S.c.a.r.e.. Follow Up Care 07/14/2022 13:35:56 With:BRENNON JAMESON, BOBBY Sifuentes Address:Unknown When: Unknown [facility] 09-13-2022 History general Narrative - Reported* Type Description Date Medical History heart dysrythmia Medical History Night sweats Medical History Insomnia, unspecified type Medical History hypertension Surgical History hysterectomy dec 2003 Surgical History acl reconstruction right knee n ov 2004 Surgical History leg dec 2014 Hospitalization History see above [facility] Other 09-12-2022 Evaluation note* Encounter Date Diagnosis [...] weeks for the cough to go away [facility] Other 06-28-2022 Note [id number]06-28-2022 [id number] 08-26-2021 [facility] SURGERY Clinical Discharge Summary PERSON INFORMATION Name IKE JONES Age 50 Years 1970 Sex FEMALE Language Central African PCP RANDY CALLE Marital Status Med Service Ambulatory Surgery Acct# Arrival 08/26/2021 11:01:00 Visit Reason SURGERY- LEFT KNEE SCOPE Acuity LOS 003 04:51 Address: [place] [address] Comment: PROVIDER INFORMATION VITALS INFORMATION Vital Sign Triage Latest Temp Oral Temp Temporal Temp Intravascular Temp Axillary Temp Rectal 02 Sat 100 % 97 % Respiratory Rate Peripheral Pulse Rate Apical Heart Rate Blood Pressure / 90 mmHg / 103 mmHg Comment: MEDICAL INFORMATION Allergy Info: Adhesive Bandage; Demerol Prescriptions Given: acetaminophen-hydrocodone (!-Union 5 mg-325 mg oral tablet) 1 tab(s) [...] Oral every day. potassium chloride (Potassium Chloride (Vnl-Vhho-Foo 10) 10 mEq oral tablet, extended release) 1 tab(s) Oral every day. traZODone (traZODone 50 mg oral tablet) 1 tab(s) Oral once a day (at bedtime). Medication List: Medications to Continue That Have Not Changed Other Medications acetaminophen-hydrocodone (!-Union 5 mg-325 mg oral tablet) 1 tab(s) Oral Every 6 hours as needed as needed for pain. carvedilol (carvedilol 12.5 mg oral tablet) 1 tab(s) Oral 2 times a day. cyclobenzaprine (cyclobenzaprine 10 mg oral tablet) 1 tab(s) Oral At bedtime as needed for spasm. hydroCHLOROthiazide (hydroCHLOROthiazide 25 mg oral tablet) 1 tab(s) Oral every day. potassium chloride (Potassium Chloride (Syi-Kkul-Hup 10) 10 mEq oral tablet, extended release) 1 tab(s) Oral every day. traZODone (traZODone 50 mg oral tablet) 1 tab(s) Oral once a day (at bedtime). Medications to Continue That Have Not Changed Other Medications acetaminophen-hydrocodone (!-Union 5 mg-325 mg oral tablet) 1 tab(s) Oral Every 6 hours as needed as needed for pain. carvedilol (carvedilol 12.5 mg oral tablet) 1 tab(s) Oral 2 times a day. cyclobenzaprine (cyclobenzaprine 10 mg oral tablet) 1 tab(s) Oral At bedtime as needed for spasm. hydroCHLOROthiazide (hydroCHLOROthiazide 25 mg oral tablet) 1 tab(s) Oral every day. potassium chloride (Potassium Chloride (Ckw-Llox-Dhj 10) 10 mEq oral tablet, extended release) 1 tab(s) Oral every day. traZODone (traZODone 50 mg oral tablet) 1 tab(s) Oral once a day (at bedtime). Medications to Continue That Have Not Changed Other Medications acetaminophen-hydrocodone (!-Union 5 mg-325 mg oral tablet) 1 tab(s) Oral Every 6 hours as needed as needed for pain. carvedilol (carvedilol 12.5 mg oral tablet) 1 tab(s) Oral 2 times a day. cyclobenzaprine (cyclobenzaprine 10 mg oral tablet) 1 tab(s) Oral At bedtime as needed for spasm. hydroCHLOROthiazide (hydroCHLOROthiazide 25 mg oral tablet) 1 tab(s) Oral every day. potassium chloride (Potassium Chloride (Whu-Sdrk-Ayp 10) 10 mEq oral tablet, extended release) [...] PATIENT EDUCATION INFORMATION Instructions: [facility] Follow up: DIAGNOSIS Internal derangement of left knee Comment: PHYS DOC [facility]06-16-2022 [facility] SURGERY Clinical Discharge Summary PERSON INFORMATION Name IKE JONES Age 50 Years 1970 Sex FEMALE Language Central African PCP RANDY CALLE Marital Status Med Service Ambulatory Surgery Acct# Arrival Visit Reason SURGERY - LEFT KNEE SCOPE Acuity LOS 010 03:19 Address: [address] [facility] [address] Comment: PROVIDER INFORMATION VITALS INFORMATION Vital Sign [...] Oral every day. potassium chloride (Potassium Chloride (Nsp-Fmzj-Mnz 10) 10 mEq oral tablet, extended release) 1 tab(s) Oral every day. traZODone (traZODone 50 mg oral tablet) 1 tab(s) Oral once a day (at bedtime). Medication List: Medications That Were Updated - Follow Below Instructions Other Medications Updated: potassium chloride (Potassium Chloride (Xbq-Jkqc-Yqy 10) 10 mEq oral tablet, extended release) [...] Other Medications Updated: potassium chloride (Potassium Chloride (Fkc-Cpks-Crz 10) 10 mEq oral tablet, extended release) [...] Other Medications Updated: potassium chloride (Potassium Chloride (Eog-Cdep-Hif 10) 10 mEq oral tablet, extended release) [...] Follow up: With: Address: When: MYESHA ALISSON [address] [place], [place] [id number] Business (1) 09/03/2021 9:15 AM With: Address: When: RANDY ALVA [place]era [place] [address] Business (1) Type Location Start [facility] Lab Collection ([facility]) LAB 08/21/2021 4:00 PM 08/21/2021 4:10 PM Confirmed Surgery ([facility]) [facility] Main OR 08/26/2021 1:00 PM 08/26/2021 1:30 PM Confirmed DIAGNOSIS Comment: AGUSTIN [facility]11-24-2021 Note [id number]11-23-2021 [id number] 01-21-2021 [facility] SURGERY Clinical Discharge Summary PERSON INFORMATION Name IKE JONES Age 50 Years 1970 Sex FEMALE Language Central African PCP RANDY CALLE Marital Status [facility] Service Ambulatory Surgery Acct# Arrival 01/21/2021 06:05:01 Visit Reason SURGERY - RIGHT KNEE ARTHROSCOPY Acuity LOS 032 23:00 Address: [address] [place] [id number] Comment: PROVIDER INFORMATION VITALS INFORMATION Vital Sign [...] Instructions: Reny- Post [facility] Follow up: With: Address: When: MYESHA VINSON [address] [place] [address], [facility] [address] [place] [address] Business (1) 01/30/2021 11:00 AM With: Address: When: RANDY ALVA [place] [address] Business (1) DIAGNOSIS Internal derangement of right knee; Tear of meniscus of right knee Comment: PHYS [facility]11-19-2021 NoteSpoke to pt on phone regarding upcoming procedure. pt aware to be here at 6am, NPO after midnight, and need for ride after procedure. pt verbalizes understanding. [Electronically Signed on: 01/18/2021 11:03 EST] Jen Khoury RN [Verified on: 01/18/2021 11:03 EST] Jen Khoury RNOhio[facility] HospitalEvaluation + Plan note No data available for this section [facility] Evaluation + Plan note Future Appointments Appointment Date:04/10/2023 03:20:00 PM Scheduled Provider:Sandrita WILLETT MD Location:[facility] Appointment Type: Established [address] [facility] assessment information available [facility] Work Phone: Evaluation note* Diagnosis Mammogram abnormal Abnormal mammogram, unspecified Invasive ductal carcinoma of breast, right (CMS/HCC) documented in this encounter [facility]Evaluation [facility]* Diagnosis Malignant neoplasm of lower-inner quadrant of right breast of female, estrogen receptor positive (CMS-HCC)- Primary Mass of lower inner quadrant of right breast Malignant neoplasm of lower-inner quadrant of right breast of female, estrogen receptor positive (CMS-HCC) documented in this encounter [facility]* Diagnosis Onset Date Resolution Status Breast cancer, right acute [facility] Work Phone: evaluation note* Diagnosis Onset Date Resolution Status Breast cancer, right acute Breast cancer, right acute [facility] Work Phone: evaluation note* Diagnosis 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 documented in this encounter [facility]* Diagnosis 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 [facility] Diagnosis MIRNA (acute kidney injury) (CMS-HCC)- Primary MIRNA (acute kidney injury) (CMS-HCC) Infection of deep incisional surgical site after procedure, initial encounter 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 Infection of deep incisional surgical site after procedure, subsequent encounter Malignant neoplasm of lower-inner quadrant of right breast of female, estrogen receptor positive (CMS-HCC) Hypertension Unspecified essential hypertension Cellulitis of left breast Infection of deep incisional surgical site after procedure [facility]* Diagnosis Encounter for postoperative care- Primary Acquired absence of breast, bilateral S/P breast reconstruction, bilateral Infection of breast implant, subsequent encounter [facility]* Diagnosis Malignant neoplasm of lower-inner quadrant of right breast of female, estrogen receptor positive (CMS-HCC)- Primary [facility]* Diagnosis Encounter for postoperative care- Primary Acquired absence of breast, bilateral S/P breast reconstruction, bilateral [facility]* Diagnosis Onset Date Resolution Status Breast cancer, right acute Breast cancer, right acute Breast cancer, right acute [facility] Work Phone: Evaluation note* Diagnosis Infection of deep incisional surgical site after procedure, subsequent encounter- Primary Malignant neoplasm of lower-inner quadrant of right breast of female, estrogen receptor positive (CMS-HCC) documented [facility]* Diagnosis Retinal tear of right eye- Primary Vitreous hemorrhage of right eye (CMS/HCC) Vitreous hemorrhage [facility] Diagnosis Cellulitis of left breast- Primary S/P breast reconstruction, bilateral documented in this encounter [facility]* Diagnosis Encounter for postoperative care- Primary Acquired absence of breast, bilateral S/P breast reconstruction, bilateral Infection of breast implant, subsequent encounter documented in this encounter [facility]* Diagnosis Adverse effect of doxycycline, initial encounter- Primary [facility]* Diagnosis Anaphylaxis, subsequent encounter- Primary documented in this encounter [facility] HealthcareHistory [facility] [...] medication regimen. She denies medication side effects. [facility] [address] DO Work Phone: Hospital Discharge instructions No data available for this section [facility] instructionsAmbulatory Orders* RISE Order Location: None Selected [facility] Work Phone: InstructionsNot on filedocumented in this encounter [facility]Not on filedocumented in this encounter [facility] System[facility]ructionsNot on filedocumented in this encounter [facility] SystemInstructionsNot on filedocumented in this encounter [facility]InstructionsNot on filedocumented in this encounter [facility] SystemInstructionsNot on filedocumented in this encounter [facility]Not on filedocumented in this encounter [facility]InstructionsNot on filedocumented in this encounter [facility] SystemInstructionsNot on filedocumented in this encounter [facility] SystemInstructionsNot on filedocumented in this encounter [facility] SystemInstructionsNot on filedocumented in this encounter [facility] SystemInstructionsNot on filedocumented in this encounter [facility] No data available for this section [facility] Progress note Author Quincy Colbert [facility] December 29, 2023 11:28am Note Date/Time December 29, 2023 1 1:28am [facility] [place] [address] Cancer Center Note Signed Patient: Ike Jones MR#: [id number] : 1970 Acct:[id number] Age/Sex: 53 / F Type: REG AMB Date of Service: 12/29/23 Copies to: MD Randy Mistry,DO~ Assessment & Plan (1) Breast cancer, right: Plan: CT simulation to follow-plan for postmastectomy radiation 42.5 Dash in 16 fractions with a 10 Dash 4 fraction boost to the right IMN's Involved on PET Assessment: 52-year-old female with clinical stage IIIc, 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 ER negative (weakly positive) ME negative HER2 negative. She received neoadjuvant chemotherapy with carboplatin and paclitaxel and Keytruda. She is status post bilateral mastectomy with final pathology in the right breast ypT1c (m) N2a with a 1.8 cm residual invasive ductal carcinoma grade 2 with multiple foci of invasive neoplasm ranging from 3 to 5 mm with treatment effect. High-grade DCIS. All margins were clearly negative. LVSI. Axillary lymph node dissection showed 6 of 12 lymph nodes positive with the largest deposit 1.5 cm with extranodal extension present. Patient returns to clinic today and has significantly improved range of motion in the right upper extremity. She is planned for 42.5 Dash in 16 fractions to the right chest wall and regional lymphatics including the internal mammary lymphnodes. We will plan on a 10 Dash 4 fraction boost to the grossly involved IMN'son her PET scan. She will continue on her antibiotics under the care of infectious disease. Medications: New mometasone 0.1% Apply to radiation site, once a day, AFTER radiation treatment. 1 applic topical DAILY 45 grams 0RF C50.911 - Malignant neoplasm of unspecified site of right female breast History of Present Illness HPI 53-year-old female who palpated a lump in the right breast March 2023. Oncologic history: March 07, 2023 mammogram showed a 2.6 cm mass in the lower inner quadrant of the right breast with associated microcalcification. Right axillary lymphadenopathy with an enlarged lymph node measuring 2.7 cm. March 20, 2023 right diagnostic mammogram and ultrasound showed a persistent partially circumscribed 2.9 cm mass with pleomorphic calcifications. Ultrasoundshowed a corresponding 2.7 cm annular mass round in shape with multiple calcifications. March 26 2023 ultrasound-guided right breast biopsy at 4:00 invasive ductal carcinoma with areas of necrosis, grade 3. LVSI negative. ER 12 to 15% ME negative HER2 negative by IHC. 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 ER weakly positive ME negative HER2 negative. April 17, 2023 PET showed uptake in the right breast as well as the right axillary and subpectoral lymph nodes and right internal mammary lymph nodes. The groin lymph node and the left ovary avidity were felt to be inflammatory. April 21, 2023 patient was initiated on carboplatin Taxol and Keytruda for triple negative breast cancer May 08, 2023 MRI of the breast showed innumerable masses in the right breast with extension to the nipple. There is a large right axillary node measuring 3.2 cm. Enlarged lymph node in the superior aspect of the right internal intramammary chain measuring 2.4 cm. May 12, 2023 patient's case was presented at the [facility] tumor board. Recommendations were for PET staging and referral to medical and radiation oncology as well as genetics. September 04, 2023 patient underwent a post chemo MRI showing decreasing tumor burden in the right breast as well as decreased size of right axillary and internal mammary lymph nodes compatible with a partial response to treatment. There wereno new areas of disease identified. The radiologist notes that while the tumor burden is difficult to measure it overall seems slightly decreased measuring 6.9cm x 8.7 cm previously 7.6 x 8 cm. The metastatic right axillary node measures 1.9 cm previously 3.2 cm. The enlarged right internal mammary node has decreased to 1.4 cm previously 1.6 cm. No left axillary lymphadenopathy. She stated her genetic testing was negative. October 28, 2023 patient underwent bilateral skin sparing mastectomies with prepectoral tissue tortilla maker placement. Left breast shows diffuse fibrocystic change and a minute focus of atypical ductal hyperplasia. No neoplasm identified. Right breast shows invasive ductal carcinoma grade 2, 1.8 cm in size ypT1c (m) Multiple foci of invasive neoplasm ranging from 3 to 5 mm. 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 All margins were negative over 2 cm away. LVSI present. The tumor was microscopically measured due to therapeutic response. Axillary lymph node dissection showed 6 out of 12 lymph nodes positive PN2A with extracapsular extension present. 1 lymph node with individual tumor cells. Largest deposit was 1.5 cm. Postoperatively her course has been complicated by left breast cellulitis with an infected seroma. Left tissue tortilla maker removed. She has been on ertapenem and vancomycin which is scheduled to continue through December 08 with the possibility of an extension for an additional 2 weeks. She has only been recently discharged from the hospital. She returns to clinic today and states she is improved. She did not go to PT but notes improvement in her range of motion after doing exercises while she was in the hospital receiving antibiotics. Patient recently saw her plastic surgeon and tissue tortilla maker on right has been filled. Intake Intake Visit Reasons: Follow Up Prior to CT-SIM Allergies meperidine Allergy (Unknown, Unverified 11/11/21 18:32) Unknown Reaction, anaphylaxis [facility] Medical History Medical History (Updated 09/30/23 @ 12:09 by Quincy Colbert MD) Breast cancer, right Social History Social History Smoking status: Never smoker Within the past year, how often did you have a drink containing alcohol: monthly or less Within the past year, how many standard drinks containing alcohol did you have on a typical day: 1 or 2 Within the past year, how often did you have six or more drinks on one occasion: never AUDIT-C Alcohol total score: 1 AUDIT-C Alcohol score interpretation: A score less than 3 is consistent with normal alcohol consumption. Physical Exam EXAM Physical exam: KPS 90 General: Alert and oriented, no acute distress. HEENT: Normocephalic, extraocular movements intact Chest: Normal work of breathing on room air Breast: Exam now shows left tissue tortilla maker surgically absent. Port has been accessed for IV antibiotics. Right tissue tortilla maker quite full exam shows skin to be tense with surgical incisions well-healed MSK: Demonstrates good range of motion of the right shoulder with external rotation. Results - [facility] (Rad [facility]c) LAB RESULTS No Data to Display Dictated By: Quincy Colbert MD DD/ 27 Signed By: <Electronically signed by Quincy Colbert MD> 12/29/231127 [facility] Work Phone: Reason for referral (narrative)* Consultation (Routine) - Pending Review Specialty Diagnoses / Procedures Referred By Contac t Referred To Contact Radiation Oncology Diagnoses Malignant neoplasm of lower-inner quadrant of right breast of female, estrogen receptor positive ([facility]) Christy He MD [address] [place] [phone] Dany Diop MD [address] [place] [address] Referral ID Status Reason Start Date Expiration Date Visits Requested Visits Authorized [id number] Pending Review Specialty Services Required 04/28/2023 04/27/2024 1 1 * Diagnostic Imaging (Emergency) - Pending Review Specialty Diagnoses / Procedures Referred By Contac t Referred To Contact Radiology Diagnoses Malignant neoplasm of lower-inner quadrant of right breast of female, estrogen receptor positive ([facility]) Procedures MR bilateral breast with and without contrast with CAD Christy He MD [address] [facility] [address] [place] [address] Referral ID Status Reason Start Date Expiration Date V isits Requested Visits Authorized [id number] Pending Review 04/28/2023 04/27/2024 1 1 [facility] Consultation (Urgent) - Pending Review Specialty Diagnoses / Procedures Referred By Contac t Referred To Contact Infectious Disease Diagnoses Acid fast bacillus Gino Munguia APRN-GARMENT STEAMER [address] [facility] [address] [address] Mathew Serrato, DO [address] 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 [address] [address] Herman Lui, DO [address] [place] [address] Referral ID Status Reason Start Date Expiration Date Visits Requested Visits Authorized [id number] Pending Review Specialty Services Required 12/08/2023 12/07/2024 1 1 T [facility] Summary Purpose Family History No Family History [...] Advance Directives No Advanced Directives Records Found Date Activated Date Inactivated Comments 12/02/2023 11:16 PM 12/09/2023 6:06 PM Date Activated Date Inactivated Comments 10/29/2023 6:33 AM 10/29/2023 2:40 PM Advance Directive Response Recorded Date/ Time Advance Directives No December 10, 2017 10:40am Advance Directive Response Recorded Date/ Time Advance Directives No December 10, 2017 11:40am Date Activated Date Inactivated Comments 10/29/2023 6:33 AM 10/29/2023 2:40 PM Date Activated Date Inactivated Comments 12/02/2023 11:16 PM Date Activated Date Inactivated Comments 12/02/2023 11:16 PM 12/09/2023 6:06 PM Date Activated Date Inactivated Comments 10/29/2023 6:33 AM 10/29/2023 2:40 PM Chief Complaint * Patient in office for bp check due to hypertension/edema. Patient states edema has resolved. Tolerating the med changes well. Patient bp reviewed per radha zapata rn. * V.O per Dr. Shanon Harrison MD / Radha Zapata RN increase chlorthalidone to 50mg daily and do BP check in 2 weeks. * Patient advised verbalized understanding rx sent * To Dr. Shanon Harrison MD * To Dr. Shanon Dominguez DO in suite * Patient in office for bp check due to hypertension/edema. Patient states edema has resolved. Tolerating the med changes well. Patient bp reviewed per r benny rn. * V.O per Dr. Shanon Harrison MD / Radha Zapata RN increase chlorthalidone to 50mg daily and do BP check in 2 weeks. * Patient advised verbalized understanding rx sent * To Dr. Shanon Harrison MD * To Dr. Shanon Dominguez DO in suite Patient is here today for a blood pressure check ordered by Dr. Shanon Harrison MD due to hypertension. Dr. Chantal Bear MD in suite. Patient is here after 2 week follow up, patient was here for a blood pressure check on 08/22/[address] Shanon Harrison MD increased Chlorthalidone to 50mg once [...] for a 3 month follow-up of hypertension. Chief Complaint and Reason for Visit Chief Complaint NEW Breast Cancer Follow Up, Review Final Path Follow Up Prior to CT-SIM Right Breast Cancer Reason for Visit Breast cancer, right Breast cancer, right Breast cancer, right Chief Complaint Breast cancer NEW Breast Cancer Follow Up, Review Final Path Reason for Visit Breast cancer, right Breast cancer, right Chief Complaint Breast cancer NEW Breast Cancer Reason for Visit Breast cancer, right Reason for Referral Specialty Diagnoses / Procedures Referred By Contac t Referred To Contact Procedures Discharge Follow-Up Amy Jack MD [address] [facility] [address] [place] [address] Referral ID Status Reason Start Date Expiration Date V isits Requested Visits Authorized [id number] Pending Review 12/09/2023 12/08/2024 1 1 Referral ID Status Reason Start Date Expiration Date V isits Requested Visits Authorized [id number] Pending Review 12/09/2023 12/08/2024 1 1 Specialty Diagnoses / Procedures Referred By Contac t Referred To Contact Diagnoses Infection of deep incisional surgical site after procedure, initial encounter Infection of deep incisional surgical site after procedure, subsequent encounter Procedures Follow-up with primary care provider Amy Jack MD [address], [facility] [address] [place] [address] Referral ID Status Reason Start Date Expiration Date V isits Requested Visits Authorized [id number] Pending Review 12/09/2023 12/08/2024 1 1 Specialty Diagnoses / Procedures Referred By Contac t Referred To Contact Procedures Adult diet Amy Jack MD [address], [facility] [address] [place] [address] Referral ID Status Reason Start Date Expiration Date V isits Requested Visits Authorized [id number] Pending Review 12/09/2023 12/08/2024 1 1 Additional Source Comments INFORMATION SOURCE (unrecogn ized section and content) DATE CREATED AUTHOR 07/28/2021 [facility] dical Specialist DATE CREATED AUTHOR AUTHOR'S ORGANIZ ATION 09/22/2021 [facility] DATE CREATED AUTHOR AUTHOR'S ORGANIZ ATION 12/01/2021 [facility] DATE CREATED AUTHOR AUTHOR'S ORGANIZ ATION 01/04/2022 [facility] DATE CREATED AUTHOR AUTHOR'S ORGANIZ ATION 09/30/2022 [facility] DATE CREATED AUTHOR AUTHOR'S ORGANIZ ATION 10/01/2022 [facility] DATE CREATED AUTHOR AUTHOR'S ORGANIZ ATION 10/17/2022 [facility] DATE CREATED AUTHOR AUTHOR'S ORGANIZ ATION 04/13/2023 [facility] DATE CREATED AUTHOR AUTHOR'S ORGANIZ ATION 08/14/2023 [facility] DATE CREATED AUTHOR AUTHOR'S ORGANIZ ATION 12/30/2023 [facility] DATE CREATED AUTHOR AUTHOR'S ORGANIZ ATION 01/01/2024 [facility] DATE CREATED AUTHOR AUTHOR'S ORGANIZ ATION 01/29/2024 [facility] DATE CREATED AUTHOR AUTHOR'S ORGANIZ ATION 02/03/2024 [facility] dical Specialists [facility] DATE CREATED AUTHOR AUTHOR'S ORGANIZ ATION 02/03/2024 [facility] DATE CREATED AUTHOR AUTHOR'S ORGANIZ ATION 02/04/[address] [facility] REASON FOR VISIT (unrecogniz ed section and content) Reason Comments abnormal test results Discuss the result s of her abnormal mammogram results done @ [facility] Reason Comments Consult Newly dx Specialty Diagnoses / Procedures Referred By Jose olmedo Referred To Contact Breast Surgery Diagnoses Mass of lower inner quadrant of right breast Richie Hanna, FLUOROSCOPE OPERATOR-GARMENT STEAMER [address] [place] [address] Christy He MD [address] [address] Referral ID Status Reason Start Date Expiration Date V isits Requested Visits Authorized [id number] Pending Review 03/23/2023 03/22/2024 1 1 Reason Onset Date Comments Transition Of Care 12/02/2023 Reason Onset Date Comments Fever 12/02/2023 Reason Comments Post-op Problem Patient states she h ad an infected L breast implant and was started on abx on Nov 25. Patient states that on Thursday the implant was removed and Wednesday 11/29 she was discharged from the hospital. Patient states she has been doing her own abx infusions at home through her port since then and saw Dr. Rosado today. Patient states she started having a low grade fever and chills and was sent by infectious disease tonight Specialty Diagnoses / Procedures Referred By Jose olmedo Referred To Contact Diagnoses MIRNA (acute kidney injury) ([facility]) Nimo Meza MD [address] [place] [address] Referral ID Status Reason Start Date Expiration Date Visits Re quested Visits Authorized [id number] 1 1 Reason Onset Date Comments Transition Of Care 12/11/2023 Reason Comments Post-op Reason Comments Spots and/or Floaters Flashes, Light Reason Comments Post-op Reason Comments new patient Pt states she is all ergic to several antibiotics. Patient Care team informatio n (unrecognized section and content) Team Status: Active Member Role Status Dates Randy Calle DO Primary Care Provider Active Team Status: Inactive Member Role Status Dates Randy Calle DO Primary Care Provider Active Start: October 01, 2023 End: October 01, 2023 Quincy Colbert MD Attending Provider Active Start: October 01, 2023 End: October 01, 2023 Aarti Hope MD Referring Provider Active St art: October 01, 2023 End: October 01, 2023 Team Status: Inactive Member Role Status Dates Randy Calle DO Primary Care Provider Active Start: December 01, 2023 End: December 01, 2023 Quincy Colbert MD Attending Provider Active Start: December 01, 2023 End: December 01, 2023 Team Status: Inactive Member Role Status Dates Randy Calle DO Primary Care Provider Active Start: December 29, 2023 End: December 29, 2023 Quincy Colbert MD Attending Provider Active Start: December 29, 2023 End: December 29, 2023 Team Status: Active Member Role Status Dates Randy Calle DO Primary Care Provider Active Start: December 29, 2023 Quincy Colbert MD Attending Provider Active Start: December 29, 2023 Aarti Hope MD Referring Provider Active St art: December 29, 2023 Team Status: Active Member Role Status Dates Randy Calle DO Primary Care Provider Active Start: October 01, 2023 Quincy Colbert MD Attending Provider Active Start: October 01, 2023 Aarti Hope MD Referring Provider Active St art: October 01, 2023 Team Status: Inactive Member Role Status Dates Randy Calle DO Primary Care Provider Active Start: March 26, 2023 End: March 26, 2023 GUY Khan WATCH AND CLOCK REPAIRER-C Attending Provider Active Start: March 26, 2023 End: March 26, 2023 Shoe Handler Relationship Specialty Start Date End Date Randy Calle MD [address] [facility] [place] [address] PCP - General Family Medicine 04/02/23 Shoe Handler Relationship Specialty Start Date End Date Richie Hanna [facility] [address] [place] [address] PCP - General 11/28/16 Shoe Handler Relationship Specialty Start Date End Date Richie Hanna [facility] [address] [place] [address] PCP - General 11/28/16 Shoe Handler Relationship Specialty Start Date End Date Richie Hanna [facility] [address] [place] [address] PCP - General 11/28/16 Shoe Handler Relationship Specialty Start Date End Date Jacques Richie William [facility] [address] [place] [address] PCP - General 11/28/16 Shoe Handler Relationship Specialty Start Date End Date Richie Hanna FLUOROSCOPE OPERATOR-GARMENT STEAMER [address] [place] [address] PCP - General 11/28/16 Shoe Handler Relationship Specialty Start Date End Date Richie Hanna FLUOROSCOPE OPERATOR-GARMENT STEAMER [address] [place] [address] PCP - General 11/28/16 Shoe Handler Relationship Specialty Start Date End Date JacquesKevinRichie William FLUOROSCOPE OPERATOR-GARMENT STEAMER [address] [place] [address] PCP - General 11/28/16 Shoe Handler Relationship Specialty Start Date End Date Richie Hanna FLUOROSCOPE OPERATOR-GARMENT STEAMER [address] [place] [address] PCP - General 11/28/16 Shoe Handler Relationship Specialty Start Date End Date Richie Hanna FLUOROSCOPE OPERATOR-GARMENT STEAMER [address] [place] [address] PCP - General 11/28/16 Shoe Handler Relationship Specialty Start Date End Date Richie Hanna FLUOROSCOPE OPERATOR-GARMENT STEAMER [address] [place] [address] PCP - General 11/28/16 Shoe Handler Relationship Specialty Start Date End Date Richie Hanna FLUOROSCOPE OPERATOR-GARMENT STEAMER [address] [place] [address] PCP - General 11/28/16 Shoe Handler Relationship Specialty Start Date End Date Richie Hanna FLUOROSCOPE OPERATOR-GARMENT STEAMER [address] [place] [address] PCP - General 11/28/16 Shoe Handler Relationship Specialty Start Date End Date Richie Hanna FLUOROSCOPE OPERATOR-GARMENT STEAMER [address] [place] [address] PCP - General 11/28/16 Shoe Handler Relationship Specialty Start Date End Date Richie Hanna FLUOROSCOPE OPERATOR-GARMENT STEAMER [address] [place] [address] PCP - General 11/28/16 Shoe Handler Relationship Specialty Start Date End Date Richie Hanna FLUOROSCOPE OPERATOR-GARMENT STEAMER [address] [place] [address] PCP - General 11/28/16 Shoe Handler Relationship Specialty Start Date End Date Randy Calle MD [address] [place] [address] PCP - General Family Medicine 04/02/23 Shoe Handler Relationship Specialty Start Date End Date Randy Calle MD [address] [place] [address] PCP - General Family Medicine 04/02/23 Shoe Handler Relationship Specialty Start Date End Date Richie Hanna APRN-[facility] [address] [place] [address] PCP - General 11/28/16 Shoe Handler Relationship Specialty Start Date End Date Randy Calle MD [address] [place] [address] PCP - General Family Medicine 04/02/23 Shoe Handler Relationship Specialty Start Date End Date Randy Calle MD [address] [place] [address] PCP - General Family Medicine 04/02/23 Shoe Handler Relationship Specialty Start Date End Date Randy Calle MD [address] [place] [address] PCP - General Family Medicine 04/02/23 Shoe Handler Relationship Specialty Start Date End Date Randy Calle MD [address] [place] [address] PCP - General Family Medicine 04/02/23 Goals (unrecognized section and content) Goals may be documented in a n alternate section Scheduled Active and Recently Administ ered Medications (unrecognized section and content) Medication Order 12/07/2023 12/08/2023 12/09/2023 apixaban (ELIQUIS) tablet 5 mg 5 mg, oral, 2 times daily, First dose on Thu12/03/23 at 0045, Indication: Acute VTE Treatment, Indications: deep venous thrombosis 0741 (Given - Provider: Alisha Richardson RN)2139 (Given - Provider: Aliza Benito, OC) 09 (Given - Provider: Claudia Masterson LPN)2054 (Given - Provider: Aliza Benito RN) 0917 (Given - Provider: Kahlil Gregorio RN) ciprofloxacin HCl (CIPRO) tablet 500 mg (CANCELED) 500 mg, oral, Every 24 hours scheduled, First dose on Thu12/03/23 at 1200, Food-Drug Interaction Education Required May alter blood glucose or insulin requirements Administer at least 2 hours before or 6 hours after antacids, or products containing zinc, calcium, or iron Enteral Feeding Instructions: Hold tube feedings for ONE hour before and TWO hours after administration Do NOT give suspension through feeding tube Do NOT give any any oral dose form (tablet, suspension) through j-tube, Specific Use Criteria: SSTI (diabetic foot infection), Fluoroquinolones contain FDA Black Box warnings. Due to safety concerns, avoid use in acute bacterial sinusitis, acute bacterial exacerbation of chronic bronchitis, or acute uncomplicated cystitis if possible. Use alternative treatment if available. I acknowledge the Black Box warnings of fluoroquinolones. 0743 (Given - Provider: Alisha Richardson RN) ciprofloxacin HCl (CIPRO) tablet 500 mg 500 mg, oral, Every 12 hours scheduled, First dose (after last modification) on Thu12/07/23 at 2100, Food-Drug Interaction Education Required May alter blood glucose or insulin requirements Administer at least 2 hours before or 6 hours after antacids, or products containing zinc, calcium, or iron Enteral Feeding Instructions: Hold tube feedings for ONE hour before and TWO hours after administration Do NOT give suspension through feeding tube Do NOT give any any oral dose form (tablet, suspension) through j-tube, Specific Use Criteria: Other, Specify: SSTI, Fluoroquinolones contain FDA Black Box warnings. Due to safety concerns, avoid use in acute bacterial sinusitis, acute bacterial exacerbation of chronic bronchitis, or acute uncomplicated cystitis if possible. Use alternative treatment if available. I acknowledge the Black Box warnings of fluoroquinolones. 2138 (Given - Provider: Aliza Benito RN) 927 (Given - Provider: Claudia Masterson LPN)2054 (Given - Provider: Aliza Benito RN) 917 (Given - Provider: Kahlil Gregorio RN) clarithromycin (BIAXIN) tablet 500 mg 500 mg, oral, Every 12 hours scheduled, First dose on Thu12/03/23 at 1200, Indication: Nontuberculous mycobacterial infection (camp manager drug) 0743 (Given - Provider: Alisha Richardson RN)2138 (Given - Provider: Aliza Benito RN) 927 (Given - Provider: Claudia Masterson LPN)2054 (Given - Provider: Aliza Benito RN) 917 (Given - Provider: Kahlil Gregorio RN) cyanocobalamin tablet 1,000 mcg 1,000 mcg, oral, Daily, First dose on Thu12/06/23 at 0900 0742 (Given - Provider: Alisha Richardson RN) 09 (Given - Provider: Claudia Masterson LPN) 09 (Given - Provider: Kahlil Gregorio RN) doxycycline (VIBRAMYCIN) capsule 100 mg (CANCELED) 100 mg, oral, 2 times daily, First dose on Thu12/09/23 at 0900, May give with meals to decrease GI upset. Administer with at least 8 ounces of water and have patient sit up for at least 30 minutes after taking to reduce the risk of esophageal irritation and ulceration., Indication: Skin and soft tissue infection 916 (Given - Provider: Kahlil Gregorio RN) hydrocortisone (HYTONE) 2.5 % lotion 1 Application 1 Application, topical, 2 times daily, First dose on Thu12/08/23 at 1145, Apply to arm and leg rash prn itching 1145 (Self-administered - Provider: Claudia Masterson LPN)2055 (Given - Provider: Aliza Benito RN) 0900 (Given - Provider: Kahlil Gregorio, OC) imipenem-cilastatin (PRIMAXIN) 500 mg in sodium chloride 0.9 % 100 mL IVPB-MBP 500 mg, intravenous, at 200 mL/hr, Administer over 30 Minutes, Every 12 hours, First dose on 12/05/23 at 1730, ADD-VANTAGE/MBP- Discard 24 hours after activating; dissolve drug prior to administration, Pathogen: Other, Specify: request of ID, Indication: Other, Authorizing Service: ID Consult has been placed, I acknowledge that an appropriate consult is REQUIRED to use this drug at [facility], [facility] and [facility] per [facility]-approved policy # MM 1.15: Yes 1004 (New Bag - Provider: Alisha Richardson RN)1034 (Stop Bag - Provider: Alisha Richardson RN)2149 (New Bag - Provider: Aliza Benito RN)2219 (Stop Bag - Provider: Aliza Benito RN) 1136 (New Bag - Provider: Claudia Masterson LPN - Comment: waiting for pharmacy to send)1206 (Stop Bag - Provider: Claudia Masterson LPN)2311 (New Bag - Provider: Aliza Benito RN)2341 (Stop Bag - Provider: Aliza Benito RN) 1124 (New Bag - Provider: Kahlil Gregorio RN)1154 (Stop Bag - Provider: Kahlil Gregorio RN) iron sucrose (VENOFER) 200 mg in sodium chloride 0.9 % 100 mL IVPB (COMPLETED) 200 mg, intravenous, at 440 mL/hr, Administer over 15 Minutes, Daily, First dose on 12/05/23 at 1000, For 3 doses, Monitor patient for hypersensitivity reactions for at least 30 minutes after the infusion. AVOID the use of H1 antihistamines, such as diphenhydramine, as this may worsen hypersensitivity reactions. Have resuscitation equipment and medications available. 0900 (New Bag - Provider: Alisha Richardson RN)0915 (Stop Bag - Provider: Alisha Richardson RN) magnesium oxide (MAGOX) tablet 400 mg 400 mg, oral, 2 times daily, First dose on 12/05/23 at 2100 0741 (Given - Provider: Alisha Richardson RN)2138 (Given - Provider: Aliza Benito RN) 927 (Given - Provider: Claudia Masterson LPN)2054 (Given - Provider: lAiza Benito RN) 916 (Given - Provider: Kahlil Gregorio, OC) methylPREDNISolone sod suc(PF) (Solu-MEDROL) injection 125 mg (COMPLETED) 125 mg, intravenous, Once, On Thu12/08/23 at 0930, For 1 dose, May alter blood glucose or insulin requirements. Look-alike/sound-alike medication - verify indication for use. 0937 (Given - Provider: Purvi Vera RN) methylPREDNISolone sod suc(PF) (Solu-MEDROL) injection 60 mg (COMPLETED) 60 mg, intravenous, Once, On Thu12/09/23 at 1145, For 1 dose, May alter blood glucose or insulin requirements. Look-alike/sound-alike medication - verify indication for use. 1148 (Given - Provider: Kahlil Gregorio RN) metoprolol succinate XL (TOPROL XL) 24 hr tablet 100 mg 100 mg, oral, 2 times daily, First dose (after last modification) on Thu12/05/23 at 2100, Hold for systolic blood pressure less than 110 or heart rate less than 60 Look-alike/sound-alike medication - verify indication for use. Do not crush or chew. 0742 (Given - Provider: Alisha Richardson RN)2138 (Given - Provider: Aliza Benito RN) 927 (Given - Provider: Claudia Masterson LPN)2054 (Given - Provider: Aliza Benito RN) 09 (Given - Provider: Kahlil Gregorio, OC) potassium chloride (KLOR-CON M 20) CR tablet 20 mEq 20 mEq, oral, Daily, First dose on Thu12/06/23 at 0900, Hold for potassium more than 4.5 Do not crush or chew. 0738 (Given - Provider: Alisha Richardson RN) 09 (Given - Provider: Claudia Masterson LPN) 09 (Given - Provider: Kahlil Gregorio RN) sodium chloride 0.9 % flush 3 mL 3 mL, intravenous, Every 12 hours scheduled, First dose on Thu12/02/23 at 2320 0744 (Given - Provider: Alisha Richardson RN)2308 (Given - Provider: Aliza Benito RN) 0928 (Given - Provider: Claudia Masterson LPN)2057 (Given - Provider: Aliza Benito RN) 0900 (Given - Provider: Kahlil Gregorio RN) tigecycline (TYGACIL) 50 mg in sodium chloride 0.9 % 50 mL IVPB (CANCELED)(Linked Group 1) 50 mg, intravenous, at 110 mL/hr, Administer over 30 Minutes, Every 12 hours, First dose on Thu12/06/23 at 0630, Pathogen: MDR infection with confirmed susceptibility, Approved Indication: Other, Authorizing Service: ID consult has been placed, I acknowledge that an appropriate consult is REQUIRED to use this drug at [facility], [facility] and [facility] per [facility]-approved policy # MM 1.15: Yes, 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 0736 (New Bag - Provider: Alisha Richardson RN - Comment: was waiting on pharmacy)0806 (Stop Bag - Provider: Alisha Richardson RN) Continuous Medication Order 12/07/2023 12/08/2023 12/09/2023 lactated ringers infusion (CANCELED) 100 mL/hr, intravenous, Continuous, Starting on Sintia 12/03/23 at 1415 0145 (New Bag - Provider: Aliza Benito RN)0450 (Paused - Provider: Alisha Richardson RN)0452 (Restarted - Provider: Alisha Richardson RN)0736 (Paused - Provider: Alisha Richardson RN)0807 (Restarted - Provider: Alisha Richardson RN)0910 (Paused - Provider: Alisha Richardson RN)0925 (Restarted - Provider: Alisha Richardson RN)1002 (Stop Bag - Provider: Alisha Richardson RN) lactated ringers infusion (CANCELED) 100 mL/hr, intravenous, Continuous, Starting on 12/07/23 at 1215, For 24 hours 1215 (Canceled Entry - Provider: Alisha Richardson RN - Comment: Fluids already running. Order changed to q24 hr ordering)2006 (New Bag - Provider: Aliza Benito RN) 0341 (Paused - Provider: Claudia Masterson LPN)0345 (Paused - Provider: Claudia Masterson LADIES UNDERWEAR OPERATOR)0345 (Restarted - Provider: Claudia Montañonger LADIES UNDERWEAR OPERATOR)0403 (Paused - Provider: Claudia Masterson, LADIES UNDERWEAR OPERATOR)0407 (Restarted - Provider: Claudia Masterson, LADIES UNDERWEAR OPERATOR)0506 (Paused - Provider: Claudia Montañonger, LADIES UNDERWEAR OPERATOR)0512 (Restarted - Provider: Claudia Montañonger, LADIES UNDERWEAR OPERATOR)0605 (Stop Bag - Provider: Claudia Masterson LADIES UNDERWEAR OPERATOR)0618 (New Bag - Provider: Aliza Benito RN)1138 (Paused - Provider: Claudia Masterson LPN)1208 (Restarted - Provider: Claudia Montañonger, LADIES UNDERWEAR OPERATOR)1304 (Paused - Provider: Claudia Montañonger, LADIES UNDERWEAR OPERATOR)1306 (Restarted - Provider: Claudia Montañonglashawn LADIES UNDERWEAR OPERATOR)1400 (Stop Bag - Provider: Claudia Montañonger, LADIES UNDERWEAR OPERATOR)1523 (Rate/Dose Verify - Provider: Claudia Masterson LPN) PRN Medication Order 12/07/2023 12/08/2023 12/09/2023 acetaminophen (TYLENOL EXTRA STRENGTH) tablet 500 mg (CANCELED) 500 mg, oral, Every 6 hours PRN, mild pain - pain scale 1-3, headaches, temperature greater than 38 C, Starting on Thu12/02/23 at 2313, [Warning: Total Acetaminophen not to exceed more than 4 grams (4000 mg) in 24 hours] 0002 (Given - Provider: Aliza Benito RN) acetaminophen (TYLENOL EXTRA STRENGTH) tablet 500 mg 500 mg, oral, Every 6 hours PRN, mild pain - pain scale 1-3, temperature greater than 38 C, Starting on Thu12/09/23 at 0939, [Warning: Total Acetaminophen not to exceed more than 4 grams (4000 mg) in 24 hours] albuterol (PROVENTIL,VENTOLIN) nebulizer solution 2.5 mg 2.5 mg, nebulization, Every 6 hours PRN, wheezing, shortness of breath, Starting on [place] 12/03/23 at 0038, Implement INPATIENT/ED Bronchodilator Clinical Practice Guidelines? Yes, Document: \[email or web address]\epi c\EPIC_Reference\Orders\ Respiratory Care Guidelines\CPG Bronchodilator 2020.pdf ilforav-wgfyyhxvktvoc-ch ffeine (EXCEDRIN MIGRAINE) 250-250-65 mg per tablet 2 tablet 2 tablet, oral, Every 6 hours PRN, headaches, Starting on [place] 12/03/23 at 1225 0927 (Given - Provider: Claudia Masterson LPN) calcium gluconate 3,000 mg in sodium chloride 0.9 % 100 mL IVPB 3,000 mg, intravenous, at 43.3 mL/hr, Administer over 3 Hours, As needed, ionized calcium 3.5 to 3.9 mg/dL, Starting on [place] 12/03/23 at 1405, IV Administration of calcium via a central or deep vein preferred. Avoid administration in small hand veins VESICANT (RED) calcium gluconate 4,000 mg in sodium chloride 0.9 % 250 mL IVPB 4,000 mg, intravenous, at 72.5 mL/hr, Administer over 4 Hours, As needed, ionized calcium 3.4 mg/dL or less, Starting on [place] 12/03/23 at 1405, IV administration of calcium via a central or deep vein is preferred. Avoid administration in small hand veins. VESICANT (RED) calcium gluconate IVPB 2000 mg/100 mL (20 mg/mL premix) 2,000 mg, intravenous, at 50 mL/hr, Administer over 2 Hours, As needed, ionized calcium 4 to 4.3 mg/dL, Starting on [place] 12/03/23 at 1405, IV Administration of calcium via a central or deep vein preferred. Avoid administration in small hand veins VESICANT (RED) cyclobenzaprine (FLEXERIL) tablet 10 mg 10 mg, oral, Nightly PRN, muscle spasms, Starting on [place] 12/03/23 at 0039 dextrose (GLUTOSE) 40 % gel 15 g 15 g, oral, As needed, low blood sugar, blood glucose less than 70 mg/dL, Starting on Thu12/02/23 at 2314, If patient conscious and taking PO. If blood glucose is not greater than 70 mg/dL after initial treatment, repeat treatment. dextrose 50 % in water (D50W) 50% solution 25 mL 25 mL, intravenous, As needed, low blood sugar, blood glucose less than 70 mg/dL and unconscious or NPO with IV access, Starting on Thu12/02/23 at 2314, Push over 1-3 minutes STAT. If conscious and not NPO, immediately follow with meal tray or high protein (7 grams) snack if tray not available. If NPO, initiate 5% dextrose in water at 100 mL/hr and contact prescriber for additional orders. If blood glucose is not greater than 70 mg/dL after initial treatment, repeat treatment. VESICANT (RED) Warning: HYPERTONIC solution. diphenhydrAMINE (BENADRYL) injection 25 mg 25 mg, intravenous, Every 6 hours PRN, itching, Starting on Thu12/07/23 at 0911, Look-alike/sound-alike medication - verify indication for use. 1007 (Given - Provider: Alisha Richardson RN)1705 (Given - Provider: Alisha Richardson RN)2304 (Given - Provider: Aliza Benito RN) 0509 (Given - Provider: Aliza Benito RN) hydrALAZINE (APRESOLINE) injection 10 mg 10 mg, intravenous, Every 4 hours PRN, high blood pressure, Systolic blood pressure more than 150, Starting on [place] 12/03/23 at 1410, Look-alike/sound-alike medication - verify indication for use. Administer IV doses as a slow IV push; maximum rate: 5 mg/minute. labetaloL (NORMODYNE,TRANDATE) injection 10 mg 10 mg, intravenous, Every 4 hours PRN, high blood pressure, Systolic blood pressure more than 160 hold for heart rate less than 60. Use hydralazine 1st, Starting on [place] 12/03/23 at 1410, Look-alike/sound-alike medication - verify indication for use. magnesium sulfate IVPB 2000 mg/50 mL in iso-osmotic water (40 mg/mL premix) 2,000 mg, intravenous, at 25 mL/hr, Administer over 120 Minutes, As needed, Magnesium level 1.7 to 1.9 mg/dL, or Ionized Magnesium level 0.45 to 0.5 mmol/L., Starting on Thu12/06/23 at 0946, Recheck magnesium level 4 hours after infusion complete. With each magnesium result continue the replacement orders as needed. 0928 (New Bag - Provider: Kahlil Gregorio RN)1128 (Stop Bag - Provider: Kahlil Gregorio RN) magnesium sulfate IVPB 4000 mg/100 mL in iso-osmotic water (40 mg/mL premix) 4,000 mg, intravenous, at 25 mL/hr, Administer over 240 Minutes, As needed, Magnesium level 1.6 mg/dL or less, or Ionized Magnesium level 0.44 mmol/L or less, Starting on Thu12/06/23 at 0946, Recheck magnesium level 4 hours after infusion complete. With each magnesium result continue the replacement orders as needed. 0619 (New Bag - Provider: Aliza Benito RN)1012 (Stop Bag - Provider: Claudia Masterson LPN)1012 (Stop Bag - Provider: Claudia Masterson LPN)1019 (Stop Bag - Provider: Claudia Masterson LPN) ondansetron (PF) (ZOFRAN) injection 4 mg 4 mg, intravenous, Every 4 hours PRN, nausea, vomiting, Starting on Thu12/02/23 at 2313, Administer over 2-5 minutes. oxyCODONE (ROXICODONE) immediate release tablet 5 mg 5 mg, oral, Every 4 hours PRN, moderate pain - pain scale 4-6, severe pain - pain scale 7-10, Starting on Thu12/03/23 at 0041, Look-alike/sound-alike medication - verify indication for use. Immediate release. potassium chloride (KAYCIEL) 20 mEq/15 mL solution 20-60 mEq(Linked Group 2) 20-60 mEq, oral, As needed, potassium supplementation, Starting on Thu12/03/23 at 1414, Progress to oral potassium replacement when patient tolerating oral intake. If dose administered, recheck potassium level 4 hours after last dose. For potassium level 3.4 to 3.7 mmol/L =20 mEq. For potassium level 3.1 to 3.3 mmol/L =40 mEq. For potassium level 3 mmol/L or less =60 mEq. Must dilute before use - Mix in 3-8 ounces of water or juice before administration When administering in feeding tube, flush before and after per policy and monitor potassium levels 0737 (See Alternative - Provider: Alisha Richardson RN) 0617 (See Alternative - Provider: Aliza Benito RN)1523 (Given - Provider: Claudia Masterson LPN) potassium chloride (KLOR-CON M 20) CR tablet 20-60 mEq(Linked Group 2) 20-60 mEq, oral, As needed, potassium supplementation, Starting on [place] 12/03/23 at 1414, Progress to oral potassium replacement when patient tolerating oral intake. If dose administered, recheck potassium level 4 hours after last dose. For potassium level 3.4 to 3.7 mmol/L =20 mEq. For potassium level 3.1 to 3.3 mmol/L =40 mEq. For potassium level 3 mmol/L or less =60 mEq. Do not crush or chew. 0737 (Given - Provider: Alisha Richardson RN) 0654 (Given - Provider: Aliza Benito RN)0540 (See Alternative - Provider: Claudia Masterson LPN) sennosides-docusate sodium (SENOKOT-S) 8.6-50 mg 1 tablet 1 tablet, oral, Every 12 hours PRN, constipation, Starting on Thu12/02/23 at 2313 sod phos di, mono-K phos mono (K-PHOS NEUTRAL) 250 mg tablet 2 tablet(Linked Group 3) 2 tablet, oral, As needed, for phosphorus level 2.3 mg/dL or less. Do not administer if potassium is more than 4.5, Starting on [place] 12/03/23 at 1406, If dose administered, recheck phosphorus level 4 hours after last dose. Look-alike/sound-alike medication - verify indication for use. Give with a full glass of water. sodium chloride 0.9 % flush 3 mL 3 mL, intravenous, As needed, line care, before and after each intermittent use, Starting on Thu12/02/23 at 2313 sodium phosphate 20 mmol in sodium chloride 0.9 % 100 mL IVPB(Linked Group 3) 20 mmol, intravenous, at 26.7 mL/hr, Administer over 4 Hours, As needed, for phosphorus level 2.3 mg/dL or less., Starting on [place] 12/03/23 at 1406, Administer over 4 hours via dedicated line (central line). If administered, recheck phosphorus level 4 hours after infusion complete. Infuse using central line access. sodium phosphate 20 mmol in sodium chloride 0.9 % 250 mL IVPB(Linked Group 3) 20 mmol, intravenous, at 42.8 mL/hr, Administer over 6 Hours, As needed, for phosphorus level 2.3 mg/dL or less, Starting on [place] 12/03/23 at 1406, Administer over 6 hours via dedicated line (peripheral line). If administered, recheck phosphorus level 4 hours after infusion complete. traZODone (DESYREL) tablet 50 mg 50 mg, oral, Nightly PRN, sleep, Starting on [place] 12/03/23 at 0041, Look-alike/sound-alike medication - verify indication for use. 2308 (Given - Provider: Aliza Benito RN) Linked Groups Order Group 1: tigecycline (TYGACIL) 100 mg in sodium chloride 0.9 % 100 mL IVPB (COMPLETED) 100 mg, intravenous, at 220 mL/hr, Administer over 30 Minutes, Once, On 12/05/23 at 1730, For 1 dose, Pathogen: MDR infection with confirmed susceptibility, Approved Indication: Other, Authorizing Service: ID consult has been placed, I acknowledge that an appropriate consult is REQUIRED to use this drug at [facility], [facility] and [facility] per [facility]-approved policy # MM 1.15: Yes, Specify: 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 Followed by tigecycline (TYGACIL) 50 mg in sodium chloride 0.9 % 50 mL IVPB (CANCELED)Jump to med 50 mg, intravenous, at 110 mL/hr, Administer over 30 Minutes, Every 12 hours, First dose on [place] 12/06/23 at 0630, Pathogen: MDR infection with confirmed susceptibility, Approved Indication: Other, Authorizing Service: ID consult has been placed, I acknowledge that an appropriate consult is REQUIRED to use this drug at [facility], [facility] and [facility] per [facility]-approved policy # MM 1.15: Yes, 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 If dose administered, recheck potassium level 4 hours after last dose. For potassium level 3.4 to 3.7 mmol/L =20 mEq. For potassium level 3.1 to 3.3 mmol/L =40 mEq. For potassium level 3 mmol/L or less =60 mEq. Do not crush or chew. Or potassium chloride (KAYCIEL) 20 mEq/15 mL solution 20-60 mEqJump to med 20-60 mEq, oral, As needed, potassium supplementation, Starting on [place] 12/03/23 at 1414, Progress to oral potassium replacement when patient tolerating oral intake. If dose administered, recheck potassium level 4 hours after last dose. For potassium level 3.4 to 3.7 mmol/L =20 mEq. For potassium level 3.1 to 3.3 mmol/L =40 mEq. For potassium level 3 mmol/L or less =60 mEq. Must dilute before use - Mix in 3-8 ounces of water or juice before administration When administering in feeding tube, flush before and after per policy and monitor potassium levels Group 3: sodium phosphate 20 mmol in sodium chloride 0.9 % 250 mL IVPBJump to med 20 mmol, intravenous, at 42.8 mL/hr, Administer over 6 Hours, As needed, for phosphorus level 2.3 mg/dL or less, Starting on [place] 12/03/23 at 1406, Administer over 6 hours via dedicated line (peripheral line). If administered, recheck phosphorus level 4 hours after infusion complete. Or sodium phosphate 20 mmol in sodium chloride 0.9 % 100 mL IVPBJump to med 20 mmol, intravenous, at 26.7 mL/hr, Administer over 4 Hours, As needed, for phosphorus level 2.3 mg/dL or less., Starting on [place] 12/03/23 at 1406, Administer over 4 hours via dedicated line (central line). If administered, recheck phosphorus level 4 hours after infusion complete. Infuse using central line access. Or sod phos di, mono-K phos mono (K-PHOS NEUTRAL) 250 mg tablet 2 tabletJump to med 2 tablet, oral, As needed, for phosphorus level 2.3 mg/dL or less. Do not administer if potassium is more than 4.5, Starting on [facility] 12/03/23 at 1406, If dose administered, recheck phosphorus level 4 hours after last dose. Look-alike/sound-alike medication - verify indication for use. Give with a full glass of water. FOR RECORDS PERTAINING TO PATIENTS WHO ARE [...] BE BASED ON THE PRIMARY CLINICAL RECORDS. [employer] provides no warranty or guarantee of the accuracy or completeness of information in this document.
[2024-02-05 10:14] LABS: Alanine Aminotransferase 78 U/L (14-59); Albumin Globulin Ratio 1.3; Albumin Level 3.4 g/dL (3.4-5.0); Alkaline Phosphatase 74 U/L (46-116); Anion Gap 11.3; Aspartate Amino Transferase 42 U/L (15-37); BUN Creatinine Ratio 15.6; Bilirubin Direct 0.3 mg/dL (0.0-0.2); Bilirubin Total 1.6 mg/dL (0.2-1.0); Calcium 9.1 mg/dL (8.5-10.1); Carbon Dioxide 30.5 mmol/L (21.0-32.0); Chloride 107 mmol/L (98-107); Erythrocyte Sedimentation Rate <1 mm/hr (<=30); Estimated GFR (African America >60 (>=60 mL/min/1.73m^2); Estimated GFR (Non-African Ame >60 (>=60 mL/min/1.73m^2); Globulin 2.7 g/dL; Glucose 99 mg/dL (74-106); Sodium 146 mmol/L (136-145); Total Protein 6.1 g/dL (6.4-8.2)
[2024-02-05 10:18] LABS: Basophils Percent Auto 1.2 % (0.2-2.0); Eosinophils Absolute Auto 0.2 10^3/uL (0.0-0.7); Eosinophils Percent Auto 7.1 % (0.9-7.0); Hematocrit 24.6 % (36.0-48.0); Hemoglobin 8.5 g/dL (12.0-16.0); Immature Granulocytes Abs Auto 0.01 10^3/uL (0.00-0.03); Immature Granulocytes Pct Auto 0.4 % (0.0-0.5); Lymphocytes Absolute Auto 0.5 10^3/uL (1.2-3.8); Lymphocytes Percent Auto 21.3 % (20.5-60.0); Mean Corpuscular HGB Conc 34.6 g/dL (29.9-35.2); Mean Corpuscular Hemoglobin 29.9 pg (26.7-34.0); Mean Corpuscular Volume 86.6 fL (81.0-99.0); Mean Platelet Volume 9.5 fL (9.5-13.5); Monocytes Absolute Auto 0.3 10^3/uL (0.3-0.8); Neutrophils Absolute Auto 1.5 10^3/uL (1.4-6.5); Platelet Count 125 10^3/uL (150-450); Potassium 2.8 mmol/L (3.5-5.1); Red Blood Count 2.84 10^6/uL (4.20-5.40); Red Cell Distribution Width 16.6 % (11.0-15.0); White Blood Count 2.5 10^3/uL (4.0-11.0)
[2024-02-05 10:21] LABS: C Reactive Protein <0.50 mg/dL (<=0.50); TSH W/ REFLEX FT4 2.328 uIU/mL (0.358-3.740)
[2024-02-05] MEDS: POTASSIUM CHLORIDE 20 MEQ in 0.9 % SODIUM CHLORIDE 250 ML 130 MEQ IV (15:02)
[2024-02-05 15:12] VITALS: PULSE 80; TEMP 36.6; O2SAT 98
[2024-02-09 11:40] LABS: Basophils Percent Auto 0.7 % (0.2-2.0); Eosinophils Absolute Auto 0.2 10^3/uL (0.0-0.7); Eosinophils Percent Auto 5.2 % (0.9-7.0); Hemoglobin 7.8 g/dL (12.0-16.0); Immature Granulocytes Abs Auto 0.02 10^3/uL (0.00-0.03); Immature Granulocytes Pct Auto 0.7 % (0.0-0.5); Lymphocytes Absolute Auto 0.6 10^3/uL (1.2-3.8); Mean Corpuscular HGB Conc 34.5 g/dL (29.9-35.2); Mean Corpuscular Volume 86.9 fL (81.0-99.0); Mean Platelet Volume 9.5 fL (9.5-13.5); Monocytes Absolute Auto 0.4 10^3/uL (0.3-0.8); Monocytes Percent Auto 13.8 % (1.7-12.0); Neutrophils Absolute Auto 1.9 10^3/uL (1.4-6.5); Neutrophils Percent Auto 60.6 % (43.0-75.0); Platelet Count 137 10^3/uL (150-450); Red Cell Distribution Width 16.6 % (11.0-15.0); White Blood Count 3.1 10^3/uL (4.0-11.0)
[2024-02-09 11:45] LABS: Hematocrit 22.6 % (36.0-48.0)
[2024-02-09 11:53] LABS: Alanine Aminotransferase 56 U/L (14-59); Albumin Globulin Ratio 1.3; Albumin Level 3.4 g/dL (3.4-5.0); Alkaline Phosphatase 74 U/L (46-116); Anion Gap 11.4; Aspartate Amino Transferase 30 U/L (15-37); BUN Creatinine Ratio 17.9; Bilirubin Total 1.4 mg/dL (0.2-1.0); Calcium 8.9 mg/dL (8.5-10.1); Carbon Dioxide 27.9 mmol/L (21.0-32.0); Chloride 104 mmol/L (98-107); Estimated GFR (African America >60 (>=60 mL/min/1.73m^2); Estimated GFR (Non-African Ame >60 (>=60 mL/min/1.73m^2); Globulin 2.7 g/dL; Glucose 115 mg/dL (74-106); Potassium 3.3 mmol/L (3.5-5.1); Sodium 140 mmol/L (136-145); Total Protein 6.1 g/dL (6.4-8.2)
[2024-02-09 12:01] LABS: TSH W/ REFLEX FT4 2.132 uIU/mL (0.358-3.740)
[2024-02-09] MEDS: ACETAMINOPHEN 325 MG TABLET 650 MG PO (16:15)
[2024-02-09 16:23] VITALS: BP 145/91; PULSE 101; TEMP 36.6; O2SAT 97
[2024-02-09] MEDS: 0.9 % SODIUM CHLORIDE 250 ML 10 ML IV (16:27)
--- NOTE | 2024-02-09 16:41 | PC.NURSE ---
1615: [facility]. Seated in recliner. Port flushes easily with good blood return. Medicated with Tylenol 650mg po as ordered. Denies c/o at this. 1627: 1 unit PRBC initiated at this time. 1642: VSS. Denies c/o. Drinking water.
[2024-02-09 16:42] VITALS: BP 130/78; PULSE 81; TEMP 36.6; O2SAT 98
--- NOTE | 2024-02-09 17:27 | PC.NURSE ---
1710: Pt. tolerating infusion without s&s of adverse reaction. Denies needs or c/o. Drinking water. Declines food when offered.
[2024-02-09 17:42] VITALS: BP 155/80; PULSE 68; TEMP 36.6; O2SAT 98
[2024-02-09 17:52] VITALS: BP 151/81; PULSE 72; TEMP 36.8; O2SAT 97
--- NOTE | 2024-02-09 17:54 | PC.NURSE ---
1752: PRBC transfusion completed without s&s of adverse reaction. Port flushed with saline. Port remains accessed for home antibiotic therapy. Pt. tolerated without c/o. D/c'd amb. to home.
[2024-02-19 10:30] VITALS: BP 140/85; PULSE 87; TEMP 36.9; O2SAT 97
[2024-02-19 10:59] LABS: Basophils Percent Auto 0.8 % (0.2-2.0); Eosinophils Absolute Auto 0.3 10^3/uL (0.0-0.7); Eosinophils Percent Auto 6.9 % (0.9-7.0); Hemoglobin 7.8 g/dL (12.0-16.0); Immature Granulocytes Abs Auto 0.03 10^3/uL (0.00-0.03); Immature Granulocytes Pct Auto 0.8 % (0.0-0.5); Lymphocytes Absolute Auto 0.5 10^3/uL (1.2-3.8); Lymphocytes Percent Auto 13.3 % (20.5-60.0); Mean Corpuscular HGB Conc 33.6 g/dL (29.9-35.2); Mean Corpuscular Hemoglobin 29.7 pg (26.7-34.0); Mean Corpuscular Volume 88.2 fL (81.0-99.0); Mean Platelet Volume 9.7 fL (9.5-13.5); Monocytes Absolute Auto 0.6 10^3/uL (0.3-0.8); Monocytes Percent Auto 15.5 % (1.7-12.0); Neutrophils Absolute Auto 2.4 10^3/uL (1.4-6.5); Neutrophils Percent Auto 62.7 % (43.0-75.0); Platelet Count 161 10^3/uL (150-450); Red Blood Count 2.63 10^6/uL (4.20-5.40); Red Cell Distribution Width 16.2 % (11.0-15.0); White Blood Count 3.8 10^3/uL (4.0-11.0)
[2024-02-19 11:01] LABS: Hematocrit 23.2 % (36.0-48.0)
[2024-02-19] MEDS: PEMBROLIZUMAB 200 MG in 0.9 % SODIUM CHLORIDE 100 ML 216 MG IV (11:08)
[2024-02-19 11:19] LABS: Alanine Aminotransferase 36 U/L (14-59); Albumin Globulin Ratio 1.3; Albumin Level 3.3 g/dL (3.4-5.0); Alkaline Phosphatase 70 U/L (46-116); Anion Gap 9.6; Aspartate Amino Transferase 22 U/L (15-37); BUN Creatinine Ratio 14.5; Bilirubin Direct 0.2 mg/dL (0.0-0.2); Bilirubin Total 1.1 mg/dL (0.2-1.0); Calcium 8.7 mg/dL (8.5-10.1); Carbon Dioxide 26.8 mmol/L (21.0-32.0); Chloride 109 mmol/L (98-107); Estimated GFR (African America >60 (>=60 mL/min/1.73m^2); Estimated GFR (Non-African Ame >60 (>=60 mL/min/1.73m^2); Globulin 2.6 g/dL; Glucose 92 mg/dL (74-106); Potassium 3.4 mmol/L (3.5-5.1); Sodium 142 mmol/L (136-145); TSH W/ REFLEX FT4 1.691 uIU/mL (0.358-3.740); Total Protein 5.9 g/dL (6.4-8.2)
--- NOTE | 2024-02-19 12:04 | PC.NURSE ---
1030: Pt. to [facility] for scheduled infusion. Seated in recliner. Left ant. chest port already accessed due to home IV antibiotic therapy. Flushes easily with good blood return. Blood obtained for ordered labs. Using sterile technique, left ant. chest port Dawson needle and dressing changed. Pt's upper ant. chest wall extremely red and few scattered blisters noted from recent radiation therapy. Pt. c/o pain with touch only. Using Silvadene cream for treatment. Pt. tolerated all without c/o. 1101: Dr. Hope notified of current Hgb. 7.8, no new orders given at this time. Pt. asymptomatic. Encouraged pt. to inform infusion services if onset of syncope, weakness, dyspnea, etc. Pt. relays understanding. 1108: Keytruda infusion initiated at this time. Pt. denies needs. 1140: Keytruda completed without s&s of adverse reaction. VSS. 1150: Port flushed with saline. Pt. d/c'd amb. to home.
[2024-02-29] MEDS: HEPARIN SODIUM (PORCINE) PF LOCK FLUSH 500 UNIT/5 ML SYRINGE IV (13:45)
--- NOTE | 2024-02-29 13:59 | PC.NURSE ---
1345: Pt. to [facility] amb. for c/o port tubing bleeding . Upon assessment, Dawson needle intact and unclamped without anti-reflux cap in place. Blood clot noted to end of tube. Dawson needle d/c'd. Using sterile technique, left ant. chest port cleaned and re-accessed using 20 gauge 1 Dawson needle. Flushes easily with good blood return. Weekly labs obtained. Port flushed with saline and Heparin. Anti-reflux clave connector applied with sterile green cap applied at end of clave connector. Opsite dressing applied. Pt. tolerated without c/o. 1359: Pt. d/c'd amb. to home.
[2024-02-29 14:59] LABS: Alanine Aminotransferase 33 U/L (14-59); Albumin Globulin Ratio 1.4; Albumin Level 3.6 g/dL (3.4-5.0); Alkaline Phosphatase 72 U/L (46-116); Anion Gap 12.7; Aspartate Amino Transferase 20 U/L (15-37); BUN Creatinine Ratio 19.3; Bilirubin Direct 0.2 mg/dL (0.0-0.2); Bilirubin Total 0.8 mg/dL (0.2-1.0); Calcium 9.4 mg/dL (8.5-10.1); Carbon Dioxide 28.6 mmol/L (21.0-32.0); Chloride 104 mmol/L (98-107); Estimated GFR (African America >60 (>=60 mL/min/1.73m^2); Estimated GFR (Non-African Ame >60 (>=60 mL/min/1.73m^2); Globulin 2.6 g/dL; Glucose 87 mg/dL (74-106); Potassium 3.3 mmol/L (3.5-5.1); Sodium 142 mmol/L (136-145); Total Protein 6.2 g/dL (6.4-8.2)
== END 2024-03-01 23:59 | disposition home or self-care (01) ==
LOC: HEMC 07:42
PROVIDERS: PCP Nurse Practitioner Family; Visit Provider Internal Medicine Hematology & Oncology
DX: Z51.11 Encounter for antineoplastic chemotherapy (principal); C50.311 Malignant neoplasm of lower-inner quadrant of right female breast; D70.1 Agranulocytosis secondary to cancer chemotherapy; Z79.899 Other long term (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 therapy; C77.3 Secondary and unspecified malignant neoplasm of axilla and upper limb lymph nodes; D64.81 Anemia due to antineoplastic chemotherapy; Z79.818 Long term (current) use of other agents affecting estrogen receptors and estrogen levels; R11.2 Nausea with vomiting, unspecified; Z90.13 Acquired absence of bilateral breasts and nipples; Z90.710 Acquired absence of both cervix and uterus; I10 Essential (primary) hypertension
CPT/HCPCS: 36415; 36430; 36591; 80053; 82248; 84443; 85025; 85652; 86140; 86850; 86900; 86901; 86923; 96365; 96413; 96523; G0463; J1642; J3480; J9271; P9016

== ENCOUNTER 2024-03-23 09:29 | Outpatient (OUT) | payer OTHER, SELFPAY | END 2024-03-23 09:30 | disposition home or self-care (01) | PROVIDERS: PCP Nurse Practitioner Family; Visit Provider Obstetrics & Gynecology | DX: Z01.818 Encounter for other preprocedural examination (principal); Z85.3 Personal history of malignant neoplasm of breast ==

== ENCOUNTER 2024-04-01 07:34 | Outpatient (RCR) | payer OTHER, SELFPAY ==
[2024-03-04 14:18] LABS: Basophils Percent Auto 0.6 % (0.2-2.0); Eosinophils Absolute Auto 0.2 10^3/uL (0.0-0.7); Eosinophils Percent Auto 5.1 % (0.9-7.0); Hematocrit 28.3 % (36.0-48.0); Hemoglobin 9.5 g/dL (12.0-16.0); Immature Granulocytes Abs Auto 0.01 10^3/uL (0.00-0.03); Immature Granulocytes Pct Auto 0.2 % (0.0-0.5); Lymphocytes Absolute Auto 0.7 10^3/uL (1.2-3.8); Lymphocytes Percent Auto 14.3 % (20.5-60.0); Mean Corpuscular HGB Conc 33.6 g/dL (29.9-35.2); Mean Corpuscular Hemoglobin 30.9 pg (26.7-34.0); Mean Corpuscular Volume 92.2 fL (81.0-99.0); Mean Platelet Volume 9.3 fL (9.5-13.5); Monocytes Absolute Auto 0.5 10^3/uL (0.3-0.8); Monocytes Percent Auto 10.9 % (1.7-12.0); Neutrophils Absolute Auto 3.2 10^3/uL (1.4-6.5); Neutrophils Percent Auto 68.9 % (43.0-75.0); Platelet Count 193 10^3/uL (150-450); Red Blood Count 3.07 10^6/uL (4.20-5.40); Red Cell Distribution Width 17.9 % (11.0-15.0); White Blood Count 4.7 10^3/uL (4.0-11.0)
[2024-03-11 09:33] VITALS: BP 149/88; PULSE 92; TEMP 36.5; O2SAT 98
[2024-03-11 10:21] LABS: Hematocrit 26.8 % (36.0-48.0); Hemoglobin 9.1 g/dL (12.0-16.0); Mean Corpuscular Hemoglobin 31.3 pg (26.7-34.0); Mean Corpuscular Volume 92.1 fL (81.0-99.0); Mean Platelet Volume 9.7 fL (9.5-13.5); Platelet Count 181 10^3/uL (150-450); Red Blood Count 2.91 10^6/uL (4.20-5.40); Red Cell Distribution Width 17.2 % (11.0-15.0); White Blood Count 4.1 10^3/uL (4.0-11.0)
[2024-03-11] MEDS: PEMBROLIZUMAB 200 MG in 0.9 % SODIUM CHLORIDE 100 ML 216 MG IV (10:30)
[2024-03-11 10:56] LABS: Alanine Aminotransferase 27 U/L (14-59); Albumin Globulin Ratio 1.4; Albumin Level 3.5 g/dL (3.4-5.0); Alkaline Phosphatase 73 U/L (46-116); Anion Gap 16.4; Aspartate Amino Transferase 16 U/L (15-37); BUN Creatinine Ratio 12.2; Bilirubin Direct 0.2 mg/dL (0.0-0.2); Calcium 8.8 mg/dL (8.5-10.1); Carbon Dioxide 27.1 mmol/L (21.0-32.0); Chloride 106 mmol/L (98-107); Estimated GFR (African America >60 (>=60 mL/min/1.73m^2); Estimated GFR (Non-African Ame >60 (>=60 mL/min/1.73m^2); Globulin 2.5 g/dL; Glucose 95 mg/dL (74-106); Potassium 3.5 mmol/L (3.5-5.1); Sodium 146 mmol/L (136-145); Thyroid Stimulating Hormone 3.729 uIU/mL (0.358-3.740)
[2024-03-11 11:26] LABS: Bilirubin Total 0.9 mg/dL (0.2-1.0)
[2024-03-11 11:45] LABS: Lymphocytes Absolute Manual 0.82 10^3/uL (1.20-3.80); Segmented Neut Absolute Manual 2.62 10^3/uL (1.4-6.5)
[2024-03-11 11:46] LABS: Eosinophils Absolute Manual 0.32 10^3/uL (0.00-0.70); Monocytes Absolute Manual 0.32 10^3/uL (0.30-0.80)
[2024-03-15 11:45] LABS: Basophils Percent Auto 0.7 % (0.2-2.0); Eosinophils Absolute Auto 0.3 10^3/uL (0.0-0.7); Eosinophils Percent Auto 6.1 % (0.9-7.0); Hematocrit 27.1 % (36.0-48.0); Hemoglobin 9.1 g/dL (12.0-16.0); Immature Granulocytes Abs Auto 0.01 10^3/uL (0.00-0.03); Immature Granulocytes Pct Auto 0.2 % (0.0-0.5); Lymphocytes Absolute Auto 0.7 10^3/uL (1.2-3.8); Lymphocytes Percent Auto 15.8 % (20.5-60.0); Mean Corpuscular HGB Conc 33.6 g/dL (29.9-35.2); Mean Corpuscular Hemoglobin 30.6 pg (26.7-34.0); Mean Corpuscular Volume 91.2 fL (81.0-99.0); Mean Platelet Volume 9.6 fL (9.5-13.5); Monocytes Absolute Auto 0.4 10^3/uL (0.3-0.8); Monocytes Percent Auto 9.7 % (1.7-12.0); Neutrophils Percent Auto 67.5 % (43.0-75.0); Platelet Count 199 10^3/uL (150-450); Red Blood Count 2.97 10^6/uL (4.20-5.40); Red Cell Distribution Width 17.3 % (11.0-15.0); White Blood Count 4.4 10^3/uL (4.0-11.0)
[2024-03-15 11:58] LABS: Alanine Aminotransferase 30 U/L (14-59); Albumin Globulin Ratio 1.5; Albumin Level 3.8 g/dL (3.4-5.0); Alkaline Phosphatase 73 U/L (46-116); Anion Gap 13.8; Aspartate Amino Transferase 18 U/L (15-37); BUN Creatinine Ratio 16.2; Bilirubin Direct 0.2 mg/dL (0.0-0.2); Bilirubin Total 1.1 mg/dL (0.2-1.0); Calcium 9.2 mg/dL (8.5-10.1); Chloride 105 mmol/L (98-107); Estimated GFR (African America >60 (>=60 mL/min/1.73m^2); Estimated GFR (Non-African Ame 59 (>=60 mL/min/1.73m^2); Globulin 2.6 g/dL; Glucose 87 mg/dL (74-106); Potassium 3.8 mmol/L (3.5-5.1); Sodium 140 mmol/L (136-145); Total Protein 6.4 g/dL (6.4-8.2)
[2024-03-18 12:59] LABS: Basophils Percent Auto 0.7 % (0.2-2.0); Eosinophils Absolute Auto 0.3 10^3/uL (0.0-0.7); Eosinophils Percent Auto 6.8 % (0.9-7.0); Hematocrit 25.1 % (36.0-48.0); Hemoglobin 8.3 g/dL (12.0-16.0); Immature Granulocytes Abs Auto 0.02 10^3/uL (0.00-0.03); Immature Granulocytes Pct Auto 0.5 % (0.0-0.5); Lymphocytes Absolute Auto 0.7 10^3/uL (1.2-3.8); Mean Corpuscular HGB Conc 33.1 g/dL (29.9-35.2); Mean Corpuscular Hemoglobin 30.2 pg (26.7-34.0); Mean Corpuscular Volume 91.3 fL (81.0-99.0); Mean Platelet Volume 9.6 fL (9.5-13.5); Monocytes Absolute Auto 0.5 10^3/uL (0.3-0.8); Monocytes Percent Auto 12.1 % (1.7-12.0); Neutrophils Absolute Auto 2.6 10^3/uL (1.4-6.5); Neutrophils Percent Auto 62.9 % (43.0-75.0); Platelet Count 181 10^3/uL (150-450); Red Blood Count 2.75 10^6/uL (4.20-5.40); Red Cell Distribution Width 17.4 % (11.0-15.0); White Blood Count 4.1 10^3/uL (4.0-11.0)
[2024-03-18 13:03] VITALS: BP 131/82; PULSE 83; TEMP 36.4; O2SAT 98
[2024-03-18 13:14] LABS: Alanine Aminotransferase 30 U/L (14-59); Albumin Globulin Ratio 1.4; Albumin Level 3.5 g/dL (3.4-5.0); Alkaline Phosphatase 71 U/L (46-116); Anion Gap 11.7; Aspartate Amino Transferase 21 U/L (15-37); Bilirubin Direct 0.2 mg/dL (0.0-0.2); Carbon Dioxide 27.7 mmol/L (21.0-32.0); Chloride 109 mmol/L (98-107); Estimated GFR (African America >60 (>=60 mL/min/1.73m^2); Estimated GFR (Non-African Ame >60 (>=60 mL/min/1.73m^2); Globulin 2.5 g/dL; Glucose 98 mg/dL (74-106); Potassium 3.4 mmol/L (3.5-5.1); Sodium 145 mmol/L (136-145)
[2024-03-23 09:05] VITALS: BP 134/81; PULSE 85; TEMP 36.4; O2SAT 98
[2024-03-23] MEDS: HEPARIN SODIUM (PORCINE) PF LOCK FLUSH 500 UNIT/5 ML SYRINGE IV (09:25)
[2024-03-23 09:40] LABS: Basophils Percent Auto 0.3 % (0.2-2.0); Eosinophils Absolute Auto 0.1 10^3/uL (0.0-0.7); Eosinophils Percent Auto 1.5 % (0.9-7.0); Hematocrit 26.7 % (36.0-48.0); Hemoglobin 8.9 g/dL (12.0-16.0); Immature Granulocytes Abs Auto 0.02 10^3/uL (0.00-0.03); Immature Granulocytes Pct Auto 0.3 % (0.0-0.5); Lymphocytes Absolute Auto 0.8 10^3/uL (1.2-3.8); Lymphocytes Percent Auto 12.6 % (20.5-60.0); Mean Corpuscular HGB Conc 33.3 g/dL (29.9-35.2); Mean Corpuscular Hemoglobin 30.6 pg (26.7-34.0); Mean Corpuscular Volume 91.8 fL (81.0-99.0); Monocytes Absolute Auto 0.6 10^3/uL (0.3-0.8); Monocytes Percent Auto 9.4 % (1.7-12.0); Neutrophils Absolute Auto 4.5 10^3/uL (1.4-6.5); Neutrophils Percent Auto 75.9 % (43.0-75.0); Platelet Count 191 10^3/uL (150-450); Red Blood Count 2.91 10^6/uL (4.20-5.40)
[2024-03-23 09:52] LABS: Alanine Aminotransferase 25 U/L (14-59); Albumin Globulin Ratio 1.4; Albumin Level 3.6 g/dL (3.4-5.0); Alkaline Phosphatase 65 U/L (46-116); Anion Gap 15.3; Aspartate Amino Transferase 13 U/L (15-37); BUN Creatinine Ratio 16.1; Bilirubin Direct 0.2 mg/dL (0.0-0.2); Bilirubin Total 1.1 mg/dL (0.2-1.0); Calcium 9.1 mg/dL (8.5-10.1); Chloride 105 mmol/L (98-107); Estimated GFR (African America >60 (>=60 mL/min/1.73m^2); Estimated GFR (Non-African Ame >60 (>=60 mL/min/1.73m^2); Globulin 2.6 g/dL; Glucose 87 mg/dL (74-106); Potassium 3.3 mmol/L (3.5-5.1); Sodium 143 mmol/L (136-145); Total Protein 6.2 g/dL (6.4-8.2)
[2024-04-01 10:02] VITALS: BP 141/94; PULSE 94; TEMP 36.6; O2SAT 96
[2024-04-01 10:15] LABS: Hemoglobin 7.8 g/dL (12.0-16.0); Mean Corpuscular HGB Conc 32.9 g/dL (29.9-35.2); Mean Corpuscular Volume 91.2 fL (81.0-99.0); Mean Platelet Volume 9.6 fL (9.5-13.5); Platelet Count 248 10^3/uL (150-450); Red Cell Distribution Width 17.8 % (11.0-15.0); White Blood Count 5.5 10^3/uL (4.0-11.0)
[2024-04-01 10:24] LABS: Hematocrit 23.7 % (36.0-48.0)
[2024-04-01 10:39] LABS: Lymphocytes Absolute Manual 0.38 10^3/uL (1.20-3.80); Segmented Neut Absolute Manual 4.18 10^3/uL (1.4-6.5)
[2024-04-01 10:40] LABS: Anisocytosis 2+; Basophils Abs Manual 0.05 10^3/uL (0.00-0.10); Eosinophils Absolute Manual 0.16 10^3/uL (0.00-0.70); Hypochromasia 2+; Monocytes Absolute Manual 0.71 10^3/uL (0.30-0.80)
[2024-04-01 10:42] LABS: Ovalocytes 1+; Target Cells 1+
[2024-04-01 10:43] LABS: Alanine Aminotransferase 18 U/L (14-59); Albumin Level 2.9 g/dL (3.4-5.0); Alkaline Phosphatase 71 U/L (46-116); Anion Gap 11.9; Aspartate Amino Transferase 16 U/L (15-37); Bilirubin Direct 0.2 mg/dL (0.0-0.2); Bilirubin Total 0.8 mg/dL (0.2-1.0); Calcium 8.7 mg/dL (8.5-10.1); Carbon Dioxide 27.4 mmol/L (21.0-32.0); Chloride 107 mmol/L (98-107); Estimated GFR (African America >60 (>=60 mL/min/1.73m^2); Estimated GFR (Non-African Ame >60 (>=60 mL/min/1.73m^2); Globulin 2.9 g/dL; Glucose 94 mg/dL (74-106); Potassium 3.3 mmol/L (3.5-5.1); Sodium 143 mmol/L (136-145); Thyroid Stimulating Hormone 1.427 uIU/mL (0.358-3.740); Total Protein 5.8 g/dL (6.4-8.2)
[2024-04-01] MEDS: PEMBROLIZUMAB 200 MG in 0.9 % SODIUM CHLORIDE 100 ML 216 MG IV (11:04)
--- NOTE | 2024-04-01 12:03 | PC.NURSE ---
1135 keytruda infused, port flushed. Dr. Hope notified of hg, orders received for 1 unit of PRBC. eb t/s/crossmatch with lab present. port flushed with ns. patient to return at 230 for prbc's
[2024-04-01] MEDS: ACETAMINOPHEN 325 MG TABLET 650 MG PO (14:42)
[2024-04-01] MEDS: DIPHENHYDRAMINE HCL 25 MG CAPSULE PO (14:43)
[2024-04-01 14:48] VITALS: BP 143/84; PULSE 100; TEMP 36.7; O2SAT 96
[2024-04-01 15:05] VITALS: BP 148/80; PULSE 82; TEMP 36.8; O2SAT 96
--- NOTE | 2024-04-01 15:08 | PC.NURSE ---
1505 Tolerating prbc's without difficulty, rate increased to 250 ml hr.
== END 2024-04-01 23:59 | disposition home or self-care (01) ==
LOC: HEMC 07:34
PROVIDERS: PCP Nurse Practitioner Family; Visit Provider Internal Medicine Hematology & Oncology
DX: Z51.12 Encounter for antineoplastic immunotherapy (principal); C50.311 Malignant neoplasm of lower-inner quadrant of right female breast; D70.1 Agranulocytosis secondary to cancer chemotherapy; R11.2 Nausea with vomiting, unspecified; Z79.818 Long term (current) use of other agents affecting estrogen receptors and estrogen levels; D64.81 Anemia due to antineoplastic chemotherapy; C77.3 Secondary and unspecified malignant neoplasm of axilla and upper limb lymph nodes; Z90.710 Acquired absence of both cervix and uterus; Z90.13 Acquired absence of bilateral breasts and nipples; Z17.0 Estrogen receptor positive status [ER+]; I10 Essential (primary) hypertension; Z17.22 Progesterone receptor negative status
CPT/HCPCS: 36415; 36430; 36591; 80053; 82248; 84443; 85007; 85025; 85027; 86850; 86900; 86901; 86923; 96413; G0463; J1642; J9271; P9016

== ENCOUNTER 2024-04-07 06:50 | Day surgery (SDC) | payer OTHER, SELFPAY ==
[2024-03-23 09:58] VITALS: BP 143/79; PULSE 86; TEMP 36.3; O2SAT 100; BMI 28.7
[2024-04-07] VITALS (10 sets, daily range): BP systolic 132–149; BP diastolic 77–93; PULSE 65–94; TEMP 36.2–36.4; O2SAT 91–98; BMI 27.3
--- OUTSIDE RECORDS SUMMARY | 2024-04-07 06:55 | XMS_ITS | CCD ---
Author Organization [facility] Care Team Providers Care Apple Picker Name Role Phone Jesusita Gee Unavailable RANDY CALLE Primary Care Unavailable Reny, Hua Kraus Admitting Unavail able Reny, Hua Kraus Attending Unavail able Hua Oglesby Admitting Unavail able RANDY CALLE Primary Care Unavailable [place], Hua Kraus Attending Unavail able RANDY CALLE Primary Care Unavailable Paco Giraldo Attending Unavailable RANDY CALLE Primary Care Unavailable [place], Hua Kraus Admitting Unavail able RANDY CALLE Consulting Unavailable [place], Hua Kraus Attending Unavail able Reny, Hua Kraus Admitting Unavail able RANDY CALLE Primary Care Unavailable Hiral Small Consulting Unavailable Reny, Hua Kraus Attending Unavail able RANDY CALLE Primary Care Unavailable [place], Hua Kraus Admitting Unavail able Reny, Hua Kraus Attending Unavail able [place], Hua Kraus Admitting Unavail able RANDY CALLE Primary Care Unavailable [place], Hua Kraus Attending Unavail able KRYSTEN, DR ANNE Admitting Unavailable KRYSTEN, DR ANNE Attending Unavailable ALVA, DR RANDY Jaramillo Primary Care Unavailable KRYSTEN, DR ANNE Consulting Unavailable MILKA, DR KAYE Garcia Admitting Unavailable MILKA, DR KAYE Garcia Attending Unavailable ALVA, DR RANDY Jaramillo Primary Care Unavailable KRYSTEN, DR ANNE Consulting Unavailable COLUMBIA, DR HIRAL Meza Consulting Unavailable MILKA, DR KAYE Garcia Consulting Unavailable Sandrita WILLETT Primary Care Physician RANDY CALLE Primary Care Physician [phone] Randy Calle Unavailable Unavailable Unavailable Christy II, Dr. Shanon Gtz Attending Unavailable McGuinn II, Dr. Shanon Gtz Referring Unavailable Furlong, Dr. Randy Meier Primary Care Unava ilable McGuinn II, Dr. Shanon Gtz Attending Unavailable McGuinn II, Dr. Shanon Gtz Referring Unavailable Furlong, Dr. Randy Meier Primary Care Unava ilable Shakeeluinn II, Dr. Shanon Gtz Attending Unavailable McGuinn II, Dr. Shanon Gtz Referring Unavailable Furlong, Dr. Randy Meier [facility] Care Unava ilable Alec, Ms. Brittani Cortes Attending Unavai darcy Santos, Ms. Brittani Cortes Referring Unavai lable Furlong, Dr. Randy Meier Primary Care Unava ilable BRITTANI AVALOS Attending Unavailable KRISTAN SANTOS, BRITTANI Referring Unavailable Furlong, Dr. Randy Meier Primary Care Yudelkava ilable Furloterry, DO Padilla Primary Care Provider Jacques, COMMUNITY OUTREACH DIRECTOR Richie Attending Provider Randy Calle MD Primary Care Provider JACQUES, RICHIE L Referring Unavailable JACQUES, RICHIE [...] JACQUES, RICHIE L Primary Care Unavailable Jacques LINE DRIVER-YOGHURT MAKER, Richie William Primary Care Provider DO Randy Calle Primary Care Provider MD Quincy Colbert Attending Provider MD Aarti Hope Referring Provider [phone] Jacques LINE DRIVER-ESPERANZA Richie L Primary Care Provider Rafaelloterry, DO Padilla Primary Care Provider MD Quincy Colbert Attending Provider MD Aarti Hope Referring Provider [phone] Sandrita WILLETT Attending Unavailable NILWilliam, Sandrita Garcia Attending Unavailable Ulisses GONSALEZ Attending Unavailable BRENNON, Sandrita Garcia Attending Unavailable Chantal Bear Attending Unavailable Chantal Bear Admitting Unavailable BRITTANI SANTOS Admitting Unavailable BRITTANI SANTOS Attending Unavailable Rusty Horton Attending Unavailable SHANON TYLER Attending Unavailable RAFAELLOTERRY, RANDY ARASH Primary Care Unavailab le Alva GALLEGOS, Randy Primary Care Provider [phone] Quincy Colbert MD Attending Provider Aarti Hope MD Referring Provider EVAN THOMPSON Attending Unavailable EVAN THOMPSON Attending Unavailable GEORGIANA JUSTICE Attending Unavailable RAMBASEYVES Driscoll Attending Unavailable RAMBASEYVES Driscoll Attending Unavailable RAMBASEYVES Driscoll Attending Unavailable EVAN THOMPSON Attending Unavailable EVAN THOMPSON Attending Unavailable [facility] Primary Care Unavailable Jacques, Richie Admitting Unavailable Jacques, Richie Attending Unavailable Aarti Hope Referring Unavailable Furlong, Randy Primary Care Unavailable Quincy Colbert Admitting Unavailable Quincy Colbert Attending Unavailable HE, CHRISTY A Referring Unavailable JACQUES, RICHIE L Primary Care Unavailable WOLBOLDT, BRE Referring Unavailable JACQUES, RICHIE L Primary Care Unavailable KARINA OSBORNAR Attending Unavailable JACQUES, RICHIE L Primary Care Unavailable HE, CHRISTY A Attending Unavailable HE, CHRISTY A Referring Unavailable JACQUES, RICHIE L Primary Care Unavailable HE, CHRISTY A Attending Unavailable HE, CHRISTY A Referring Unavailable JACQUES, RICHIE L Primary Care Unavailable STANLEY MCDERMOTT Attending Unavailable JACQUES, RICHIE L Primary Care Unavailable JHON ROSADO Admitting Unavail able JHON ROSADO Attending Unavail able JACQUES, RICHIE L Primary Care Unavailable JORDAN CORREA Attending Unavailable JACQUES, RICHIE L Primary Care Unavailable JOHN MILLER Referring Unavailable JACQUES, RICHIE L Primary Care Unavailable HE, CHRISTY A Referring Unavailable JACQUES, RICHIE L Primary Care Unavailable HE, CHRISTY A Referring Unavailable JACQUES, RICHIE L Primary Care Unavailable RENO KENYON Attending Unavailable JACQUES, RICHIE L Primary Care Unavailable JHON ROSADO Admitting Unavail able JHON ROSADO Attending Unavail able JACQUES, RICHIE L Primary Care Unavailable JACQUES, RICHIE L Referring Unavailable JACQUES, RICHIE L Primary Care Unavailable LILIANE VALLE Referring Unavailable JACQUES, RICHIE L Primary Care Unavailable EPIFANIO HENRY Attending Unavailable EPIFANIO HENRY Referring Unavailable JACQUES, RICHIE L Primary Care Unavailable JACQUES, RICHIE L Primary Care Unavailable KAYLEIGH ADAMES Attending Unavailabl e CARLENE NOGUERA Consulting Unavailable NIMO MEZA Admitting Unavailab EPIFANIO Crawford Consulting Unavailable SHANON JOE Consulting Unavailable JHON ROSADO Admitting Unavail able JHON ROSADO Attending Unavail able JHON ROSADO Referring Unavail able JACQUES, RICHIE L Primary Care Unavailable MANSOOR, CARLENE U Consulting Unavailable JAYY, AARTI Referring Unavailable JACQUES, RICHIE L Primary Care Unavailable HE, CHRISTY A Referring Unavailable JACQUES, RICHIE L Primary Care Unavailable MARISELA CUEVAS Referring Unavailable JACQUES, RICHIE L Primary Care Unavailable HE, CHRISTY A Admitting Unavailable HE, CHRISTY A Attending Unavailable JACQUES, RICHIE L Primary Care Unavailable HE, CHRISTY A Referring Unavailable JACQUES, RICHIE L Primary Care Unavailable HE, CHRISTY A Referring Unavailable JACQUES, RICHIE L Primary Care Unavailable JHON ROSADO Attending Unavail able JACQUES, RICHIE L Referring Unavailable JACQUES, RICHIE L Primary Care Unavailable MARISELA CUEVAS Attending Unavailable JACQUES, RICHIE L Referring Unavailable JACQUES, RICHIE L Primary Care Unavailable JHON ROSADO Attending Unavail able JACQUES, RICHIE L Referring Unavailable JACQUES, RICHIE L Primary Care Unavailable HE, CHRISTY A Attending Unavailable JACQUES, RICHIE L Referring [...] Unavailable JACQUES, RICHIE L Primary Care Unavailable CUEVASLASHAWNIN A Attending Unavailable JACQUES, RICHIE L Referring Unavailable JACQUES, RICHIE L Primary Care Unavailable CUEVASMARISELA A Attending Unavailable JACQUES, RICHIE L Referring Unavailable JACQUES, RICHIE L Primary Care Unavailable HE, CHRISTY A Attending Unavailable JACQUES, RICHIE L Referring Unavailable JACQUES, RICHIE L Primary Care Unavailable CUEVASLASHAWNIN A Attending Unavailable JACQUES, RICHIE L Referring Unavailable JACQUES, RICHIE L Primary Care Unavailable SUZETTE MASON Attending Unavailable JACQUES, RICHIE L Referring Unavailable JACQUES, RICHIE L Primary Care Unavailable CUEVASMARISELA CARLSON Attending Unavailable JACQUES, RICHIE L Referring Unavailable JACQUES, RICHIE L Primary Care Unavailable JHON ROSADO Attending Unavail able JACQUES, RICHIE L Referring Unavailable JACQUES, RICHIE L Primary Care Unavailable JHON ROSADO Attending Unavail able JACQUES, RICHIE L Referring Unavailable JACQUES, RICHIE L Primary Care Unavailable CLINT BAZAN Admitting Unavailable CLINT BAZAN Attending Unavailable HERMAN LUI Attending Unavailable SCOTT RODRIGUEZ Attending Unavailable ANUSHA, BRANDEE Attending Unavailable ANUSHA, GENERIC Attending Unavailable CLINT BAZAN Attending Unavailable SANDRITA AGOSTO Attending Unavailable JOSSY MOODY Attending Unavailable HERMAN LUI Attending Unavailable Allergies Allergy Classification Reported Allergen(s) Allergy Type Date of Onset Reaction(s) Facility (20 sources) Meperidine; Translations: [meperidine] Drug Allergy 9 anaphylaxis, Eruption of skin (disorder), Swelling, Unknown, Facial Swelling [facility] [place] (1 source) Adhesive bandage; Translations: [Adhesive Bandage] Propensity to adverse reactions (disorder) [facility] Repository (3 sources) Meperidine; Translations: [Demerol] Drug Allergy 3 [facility] Repository (5 sources) Adhesive agent; Translations: [ADHESIVE] Drug allergy (disorder) 5 [facility] Repository (16 sources) Meperidine Drug Allergy [address] [facility] (16 sources) Wound Dressing Adhesive Drug Allergy 3 Unknown, Rash, Itching [facility] (20 sources) Adhesive agent Propensity to adverse reactions to drug 2 Rash [facility] Work Phone: (20 sources) DAPTOmycin; Translations: [daptomycin] Drug Allergy 4 Flushing, Flushing (disorder) [facility] (20 sources) tigecycline; Translations: [tigecycline] Drug Allergy 4 Vomitus (substance) [facility] Work Phone: (20 sources) Doxycycline; Translations: [doxycycline] Drug Allergy 4 Rash [facility] (19 sources) Adhesive Tape-Silicones; Translations: [ADHESIVE TAPE-SILICONES] Propensity to adverse reactions to drug 4 Itching [facility] (11 sources) Daptomycin Propensity to adverse reactions [address] [facility] (12 sources) Tetracycline; Translations: [tetracycline] Drug Allergy 4 [facility] (11 sources) tigecycline Drug Allergy 4 Hives [facility] (16 sources) Vancomycin; Translations: [VANCOMYCIN] Drug Allergy 4 Other (See Comments) [facility] (1 source) DAPTOmycin Drug Allergy 4 [facility] Repository (1 source) Doxycycline Drug Allergy 4 [facility] (1 source) Meperidine Drug Allergy 4 [facility] Rep[facility] (1 source) tigecycline Drug Allergy 4 [facility] Rep[facility] (1 source) Vancomycin Drug Allergy 4 [facility] Repository Medications Current Medications Medication Drug Class(es) Dates Sig (Normalized) Sig (Original) acetaminophen 325 mg / HYDROcodone bitartrate 5 mg oral tablet (14 sources) Opioid Agonist Start: 05-13-2023 HYDROcodone-acetami nophen ([place]) 5-325 MG tablet TAKE ONE TABLET BY MOUTH EVERY 6 HOURS NEEDED FOR PAIN SCALE 4 TO 6 05/13/2023 Active amikacin in sodium chloride 0.9 % 100 mL IVPB (2 sources) take 750 mg intravenously three times weekly amikacin in sodium chloride 0.9 % 100 mL IVPB Infuse into a venous catheter 3 (three) times a week. 750 mg- hasn't started yet Active amoxicillin 875 mg / clavulanate 125 mg oral tablet (1 source) Penicillin-class Antibacterial Start: 11-11-2021 take 1 tablet by mouth every twelve hours Amoxicillin-Pot Clavulanate 875-125 MG 1 tablet Orally every 12 hrs for 7 days Oct, Active anastrozole 1 mg oral tablet (6 sources) Aromatase Inhibitor Start: 01-08-2024 take 1 tablet by mouth once daily anastrozole (ARIMIDEX) 1 mg chemo tablet Take 1 tablet by mouth daily Breast cancer 01/08/2024 Active apixaban 5 mg oral tablet (20 [...] day(s), # 21 cap(s), Refills(s) 0, Pharmacy: [facility]/pharmacy #[id number], 180, cm, 07/14/22 14:05:00 EDT, Height/Length Dosing, 99.7, kg, 07/14/22 14:05:00 EDT, Weight Dosing Start Date: 07/14/22 Stop Date: 07/21/22 Status: Ordered Chlorthalidone (20 sources) Thiazide-like Diuretic Start: 04-06-2023 chlorthalidone as directed, Refills(s) 0 Start Date: 04/06/23 Status: Ordered Start: 03-03-2023 End: 03-18-2024 take 0.5 tablet by mouth once daily chlorthalidone (HYGROTON) 25 mg tablet Take 0.5 tablets (12.5 mg total) by mouth daily. 03/03/2023 03/18/2024 Discontinued (Therapy completed) Start: 03-03-2023 take 1 tablet by haydee th in the morning chlorthalidone (Hygroton) 25 MG tablet Take 25 mg by mouth in the morning. 03/03/2023 Active Start: 07-21-2022 take 1 tablet by haydee th once daily Chlorthalidone 50 MG Oral Tablet TAKE ONE TABLET BY MOUTH DAILY Quantity: 90 Refills: 3 Ordered: 22-Aug-2022 Shanon Tyler MD Start : 21-Jul-2022 Active dose increased Start: 07-21-2022 take 1 tablet by haydee th once daily Chlorthalidone 25 MG Oral Tablet TAKE 1 TABLET Daily Quantity: 90 Refills: 3 Ordered: 21-Jul-2022 Shanon Tyler MD Start : 21-Jul-2022 Active cilastatin 500 mg / imipenem 500 mg injection (1 source) Penem Antibacterial, Renal Dehydropeptidase Inhibitor Start: 03-29-2024 imipenem-cilastatin (PRIMAXIN) 500 mg injection 03/29/2024 Active ciprofloxacin 500 mg oral tablet (10 [...] scheduled, First dose (after last modification) on 12/07/23 at 2100, Food-Drug Interaction Education Required May [...] acknowledge the Black Box warnings of fluoroquinolones. 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 Capsule for mycobacterial infection Active cyclobenzaprine hydrochloride 10 mg oral tablet (20 sources) Muscle Relaxant Start: 04-06-19 cyclobenzaprine as directed, Refills(s) 0 Start Date: 04/06/23 [...] 3-6 AFTER CHEMOTHERAPY FOR FATIGUE 04/21/2023 Active ertapenem 1000 mg injection (1 source) Penem Antibacterial Start: 02-11-2024 take 1 g intravenously twice daily Ertapenem 1 gram recon soln Active 1 GM IV Twice daily February 11, 2024 12:00am FeroSul 325 mg oral tablet (3 sources) [...] nasal spray (20 sources) Corticosteroid Start: 04-06-2023 End: 03-18-2024 Flonase 0.05 mg/inh [place] 1 spray(s), Nasal, BID, Refill(s) 0 Start [...] 05/02/2023 Active hydroCHLOROthiazide 12.5 mg oral tablet (16 sources) Thiazide Diuretic hydroCHLOROthi azide (HYDRODiuril) 12.5 [...] Antiarrhythmic, Amide Local Anesthetic Start: 05-12-2023 lidocaine-prilocaine (EMLA) cream Apply 1 Application topically as needed for pain. 05/12/2023 Active Start: 05-12-2023 lidocaine-pril ocaine (Emla) 2.5-2.5 % cream APPLY QUARTER SIZE AMOUNT TO AREA OF MEDIPORT, 30 MINS BEFORE CHEMO BLOOD DRAW 05/12/2023 Active linezolid 600 mg oral tablet [...] 13 days. 26 tablet 12/17/2023 12/30/2023 Active Losartan (1 source) Angiotensin 2 Receptor Bridgette Cozaar Active Magic Mouthwash W/Lidocaine 240 Ml Bottle 240 mL bottle (1 source) Start: 02-03-2024 take 10 mL by mouth four times daily Magic Mouthwash W/Lidocaine 240 Ml Bottle 240 mL bottle Active 10 ML PO Four times daily 240 February 03, 2024 12:00am Take 10ml by mouth, four times daily, SWISH AND SWALLOW. magnesium oxide 400 mg oral tablet (20 sources) Start: 02-11-2024 take 1 tablet by mouth once daily Magnesium Oxide (Magox) 400 mg (241.3 mg magnesium) tablet Active 400 MG PO Daily February 11, 2024 12:00am Start: 12-05-2023 End: 12-09-2023 take 400 mg by mouth twice daily 400 mg, oral, 2 times daily, First dose on 12/05/23 at 2100 mecobalamin (1 source) Start: 02-11-2024 mecobalamin (v itamin B12) Active PO February 11, 2024 12:00am 24 hr metoprolol succinate 25 mg extended release oral tablet (20 sources) beta-Adrenergic Bridgette Start: 02-11-2024 Metoprolol Succinate (Toprol Xl) 25 mg tablet extended release 24 hr Active 100 MG PO Daily February 11, 2024 2:26pm Start: 12-05-2023 End: 12-09-2023 100 mg, oral, [...] (TOPROL XL) 100 mg 24 hr tablet Indications: hypertension Take 1 tablet (100 mg total) by mouth in the morning. Indications: high blood pressure. 09/09/2023 Active Start: 04-06-2023 metoprolol as directed, Refills(s) 0 Start Date: 04/06/23 Status: Ordered Start: 07-21-2022 take 1 tablet by haydee th once daily Metoprolol Succinate ER 100 MG Oral Tablet Extended Release 24 Hour Take 1 tablet daily Quantity: 90 Refills: 3 Ordered: 21-Jul-2022 Shanon Tyler MD Start : 21-Jul-2022 Active Start: 03-17-2018 End: 02-11-2024 Metoprolol Succinate (Toprol Xl) 25 mg Tablet Extended Release 24 Hr Discontinued March 17, 2018 12:00am February 11, 2024 2:31pm mometasone furoate 1 mg/ml topical cream (2 sources) Corticosteroid Start: 12-29-2023 Mometasone 0.1 % cream Active 1 APPLIC TOPICAL Daily 45 December 28, 2023 11:00pm Apply to radiation site, once a day, AFTER radiation treatment. potassium chloride 10 meq extended release oral tablet (20 sources) Start: 02-11-2024 Potassium Chlo ride 10 mEq tablet extended release Active 40 MEQ PO February 11, 2024 12:00am Start: 12-06-2023 End: 12-09-2023 20 mEq, oral, Daily, First d ose on 12/06/23 at 0900, Hold for potassium more than 4.5 Do not crush or chew. Start: 12-03-2023 End: 12-09-2023 potassium chloride (KLOR-CON M 20) CR tablet 20-60 mEq Start: 12-03-2023 End: 12-03-2023 20-40 mEq, oral, As needed, potassium supplementation, Starting on [facility] 12/03/23 at 0602, Progress to oral potassium [...] not crush or chew. Start: 08-05-2023 take 20 mEq by mouth in the morning potassium chloride (KLOR-CON ORAL) Indications: hypokalemia Take 20 mEq by mouth in the morning and 20 mEq before bedtime. Indications: low amount of potassium in the blood. 08/05/2023 Active Start: 08-05-2023 take 1 dose by mouth in the morning KLOR-CON 20 mEq packet Take 1 packet (20 mEq total) by mouth in the morning. 08/05/2023 Active Start: 03-22-2023 take 1 tablet by haydee twice daily at bedtime Start: 08-18-2022 take 1 tablet by [facility] once daily Klor-Con M20 20 MEQ Oral Tablet Extended Release Take 1 tablet daily Quantity: 90 Refills: 3 Ordered: 18-Aug-2022 Shanon Tyler MD Start : 18-Aug-2022 Active potassium chlori de (K-TAB,KLOR-CON) 10 MEQ CR tablet Take 1 tablet (10 mEq total) by mouth in the morning. 0 Active predniSONE 5 mg oral tablet (20 sources) End: 12-09-2023 take 1 tablet by mouth in the morning predniSONE (Deltasone) 5 MG tablet Take 5 mg by mouth in the morning. Active prochlorperazine 10 mg oral tablet (14 sources) Phenothiazine Start: 04-21-2023 take 1 tablet by mouth three times daily as needed for nausea prochlorperazine (Compazine) 10 MG tablet TAKE ONE TABLET BY MOUTH THREE TIMES A DAY NEEDED FOR NAUSEA 04/21/2023 Active pyridoxine (1 source) Start: 02-11-2024 pyridoxine (vitamin B6) Active PO February 11, 2024 12:00am silver sulfADIAZINE 10 mg/ml topical cream (1 source) Sulfonamide Antibacterial Start: 02-10-2024 Silver Sulfadiazine (Silvadene) 1 % cream Active 1 APPLIC TOPICAL Twice daily 50 February 10, 2024 12:00am Apply to open areas on radiation site, twice a day until healed. Spironolactone (20 sources) Aldosterone Antagonist Start: 04-06-2023 spironolactone as directed, Refills(s) 0 Start Date: 04/06/23 Status: Ordered Start: 03-26-2023 End: 03-25-2024 take 1 tablet by mouth in the morning spironolactone (Aldactone) 25 MG tablet Take 25 mg by mouth in the morning. 03/26/2023 03/25/2024 Active tedizolid phosphate 200 mg oral tablet (3 sources) Oxazolidinone Antibacterial Start: 03-16-2024 End: 07-14-2024 take 1 tablet by mouth in the morning tedizolid (SIVEXTRO) 200 mg tablet tablet Take 1 tablet (200 mg total) by mouth in the morning. 03/16/2024 07/14/2024 Active Start: 02-11-2024 Tedizolid (Siv extro) 200 mg tablet Active 200 MG PO February 11, 2024 12:00am vitamin b12 1 mg oral tablet (20 sources) Vitamin B12 Start: 12-06-2023 End: 12-09-2023 take 1 tablet by mouth in the morning cyanocobalamin 1000 MCG tablet Take 1 tablet (1,000 mcg total) by mouth in the morning. 90 tablet 3 12/10/2023 Active Start: 12-05-2023 End: 12-05-2023 inject 1000 ug by intramuscular injection once 1,000 mcg, intramuscular, Once, On 12/05/23 at 1000, For 1 dose vitamin b6 50 mg oral tablet (1 source) Start: 03-28-2024 take 1 tablet by mouth in the morning pyridoxine, vitamin B6, (B-6) 50 mg tablet TAKE 1 TABLET (50 MG) BY MOUTH IN THE MORNING. 03/28/2024 Active Completed/Discontinued Medications Medication Drug Class(es) Dates Sig [...] Start: 10-29-2023 take 2 tablets by mo uth every eight hours as needed for pain [...] administration in small hand veins. VESICANT (RED) capecitabine 500 mg oral tablet (20 sources) Nucleoside Metabolic Inhibitor Start: 10-13-2023 End: 03-18-2024 capecitabine (XELODA) 500 mg chemo tablet Take by mouth after surgery 10/13/2023 03/18/2024 Discontinued (Therapy completed) carvedilol 25 mg oral tablet (17 sources) alpha-Adrenergi c Bridgette, beta-Adrenergic Bridgette Start: 05-01-2022 End: 01-25-2024 take 1 tablet by mouth in the morning carvedilol (Coreg) 25 MG tablet Take 25 mg by mouth in the morning and 25 mg in the evening. 05/01/2022 01/25/2024 Discontinued (Therapy completed) Coreg Active cefuroxime 250 mg oral tablet (5 sources) Cephalosporin Antibacterial Start: 03-17-2018 End: 02-11-2024 Cefuroxime Axetil 250 mg Tablet Discontinued TABLET March 17, 2018 12:00am February 11, 2024 2:30pm Start: 03-17-2018 Cefuroxime Axe til Active TABLET March 17, 2018 1:00am citalopram 10 mg oral tablet (5 sources) Serotonin Reuptake Inhibitor Start: 03-17-2018 End: 02-11-2024 Citalopram 10 mg Tablet Discontinued TABLET March 17, 2018 12:00am February 11, 2024 2:30pm Start: 03-17-2018 Citalopram Act hallie TABLET March 17, 2018 1:00am diazePAM 5 mg oral tablet (11 sources) [...] PRN, itching, Starting on Thu12/07/23 at 0911, Look-alike/sound-a like medication - verify indication for use. docusate sodium 50 mg / sennosides, long term 8.6 mg oral tablet (1 source) Start: [...] ulceration., Indication: Skin and soft tissue infection DULoxetine 30 mg delayed release oral capsule (20 sources) Serotonin and Norepinephrine Reuptake Inhibitor End: 03-18-2024 take 1 capsule by mouth once daily at bedtime DULoxetine (CYMBALTA) 30 mg capsule Take 1 capsule (30 mg total) by mouth once daily at bedtime. 03/18/2024 Discontinued (Therapy completed) 0.4 ml enoxaparin sodium 100 mg/ml prefilled [...] pressure more than 150, Starting on [place] 10/3/24 at 1410, Look-alike/sound-alike medication - verify indication [...] is REQUIRED to use this drug at [facility], [facility] and [facility] per [facility]-approved policy # MM 1.15: Yes iron sucrose [...] Look-alike/sound-alike medication - verify indication for use. lisinopril 20 mg oral tablet (20 sources) Angiotensin Converting Enzyme Inhibitor Start: 04-10-2023 End: 03-18-2024 take 1 tablet by mouth in the morning lisinopriL (PRINIVIL,ZESTRIL) 20 mg tablet Take 1 tablet (20 mg total) by mouth in the morning. 04/10/2023 03/18/2024 Discontinued (Therapy completed) Start: 07-21-2022 take 1 tablet by haydee th once daily Lisinopril 20 MG Oral Tablet TAKE 1 TABLET DAILY. Quantity: 90 Refills: 3 Ordered: 21-Jul-2022 Shanon Tyler MD Start : 21-Jul-2022 Active 100 ml magnesium sulfate 40 mg/ml injection [...] End: 12-09-2023 60 mg, intravenous, Once, On Thu12/09/23 at [...] a day for 6 days Oct, Active 1 ml morphine sulfate 2 mg/ml prefilled [...] 11/28/2023 12/09/2023 Discontinued (Stop Taking at Discharge) 1000 ml sodium chloride 9 mg/ml injection [...] sodium chloride 0.9 % 250 mL IVPB traZODone hydrochloride 50 mg oral tablet (20 sources) Serotonin Reuptake Inhibitor Start: 03-17-2018 End: 03-18-2024 take 1 tablet by mouth once daily traZODone (DESYREL) 50 mg tablet TAKE ONE TABLET BY MOUTH ONCE DAILY AT NIGHT 90 tablet 1 09/15/2023 03/18/2024 Discontinued (Therapy completed) Start: 03-17-2018 Trazodone Acti ve TABLET March 17, 2018 1:00am traZODone HCl Ac tive vancomycin 1,500 mg in sodium chloride 0.9 [...] Problem Classification Problem Date Documented Date Episodic/Chronic Administrative/social admission (1 source) Patient encounter status; Translations: [Other specified counseling] 02-15-2024 Episodic Asthma (20 sources) Exercise-induced asthma; Translations: [Exercise induced bronchospasm] Onset: 03-07-2022 03-07-2022 Chronic Cancer of breast (20 sources) Infiltrating duct carcinoma of breast; Translations: [Malignant neoplasm of unspecified site of right female breast] Onset: 04-09-2023 04-02-2023 Chronic Cancer of breast (1 source) History of malignant neoplasm of breast; Translations: [Personal history of malignant neoplasm of breast] 03-10-2024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 able to fill the prescription. [facility] 36on 01-08-2024 36 Patient called stating that her IV antibiotics will be completed on 01/14 and that you were possibly going to do another IV antibiotic route. I saw you ordered Tedizolid and was going to fax that to her [facility]. Did you want any other IV antibiotics? Please Advise [facility] Orders Onlyon 01-04-2024 Orders Only [id number] Ike Flannery 1970 Date Provider Department Center 01/04/2024 [facility] Anthony Heal Family History Adopted: Yes Problem Relation Age of Onset Heart attack Father Family Status - Relation Status Age at Father Normal [facility] Orders Onlyon 01-01-2024 Orders Only [id number] Ike Flannery 1970 F Date Provider Department Center 01/01/2024 [facility] Anthony Heal Family History Adopted: Yes Problem Relation Age of Onset Heart attack Father Family Status - Relation Status Age at Father Normal [facility] 37on 12-30-2023 37 Keep taking current antibiotics for now. 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 We will reach out to your Oncologist about when to restart radiation therapy. We don't anticipate deferring it at this time. Follow-up in about 1 month [facility] Follow-Upon 12-30-2023 Follow-Up [id number] Ike Flannery 1970 F Date Provider Department Center 12/30/2023 [facility] Anthony Heal Family History Adopted: Yes Problem Relation Age of Onset Heart attack Father Family Status - Relation Status Age at Father Level of Service:60248 AR OFFICE/OUTPATIENT ESTABLISHED MOD MDM 30 MIN () Reason for Visit and Comments: Invasive ductal carcinoma [Other] [facility] ED Clinical Summaryon 2023 ED Clinical Summary ED Clinical Summary [place] [id number] ED Clinical Summary Person Information Name: IKE FLANNERY Joanna/[facility] Age: 53 Years : 1970 Sex: Female Language: Spanish PCP: RANDY CALLE DO Marital Status: Phone: [phone] Visit Id: Visit Reason: Eye problem; NO [...] 12/28/2023 21:34:41 12/28/2023 21:34:41 12/28/2023 21:34:41 ADDRESS: [address] [place] [address] [id number] PHYS DOC NOTES: MEDICAL INFORMATION: Prescriptions Given: Medications to Continue with No Changes Other Medications chlorthalidone as directed. cyclobenzaprine as directed. lisinopril (lisinopril 20 mg Tab) 1 Tablets By Mouth every day. metoprolol as directed. spironolactone as directed. trazodone (traZODONE 50 mg Tab) By Mouth 2 times a day. PATIENT EDUCATION INFORMATION: Instructions: Vitreous Detachment Follow up: With: Address: When: Georgiana Justice [facility] [address] [place] [address] Business (1) In 1 day 12/29/2023 Comments: Please call first in the morning for same-day appointment With: Address: When: RANDY CALLE [address] [place], [place] [phone] Business (1) In 3 days DIAGNOSIS: Posterior vitreous detachment Normal [facility] ED Note-Physicianon 12-28-19 ED Note-Physician ED Note-Physician Basic Information Time [...] and Complexity of Problems Differential Diagnosis: [] [facility] Data External documents reviewed: N/A [...] Georgiana Justice In 1 day 12/29/2023 EDT [facility] [address] [facility], [facility] [address] [place] [address]- Business (1) Additional Instructions: Please call first in the morning for same-day appointment RANDY CALLE In 3 days [address] [place] [address] Business (1) Additional Instructions: Patient [...] Diagnostic Results No qualifying data available. Normal [facility] Comment on above: Result Comment: Elec tronically Signed By: Rusty Horton DO\.br\Date and Time Signed: 12/28/23 21:30 EDT ED Patient Summaryon 024 ED Patient Summary ED Patient Summary [place] [id number] Patient Discharge Instructions Person Information Name: IKE FLANNERY Age: 53 Years Arrival Date: 12/28/2023 20:23:14 Discharge Diagnosis: Posterior vitreous detachment Primary Care Physician: RANDY CALLE DO Provider Information Primary Provider: Rusty Horton DO Advanced Executive Personal Assistant:None The exam and treatment you received in the Emergency Department were for an urgent problem and are not intended as complete care. It is important that you follow up with a doctor, nurse practitioner, or physician???s document control assistant for ongoing care. If your symptoms become worse or you do not improve as expected and you are unable to reach your usual health care provider, you should return to the Emergency Department. We are available 24 hours a day. IKE FLANNERY has been given the following list of patient education materials, prescriptions and follow-up instructions: Follow-up Instructions: With: Address: When: Georg[place] Justice [facility] [address], [address] [place] [address] Business (1) In 1 day 12/29/2023 Comments: Please call first in the morning for same-day appointment With: Address: When: RANDY HALLMAGALYS [address] [place], [place] [phone] Business (1) In 3 days In the event that this physician does not participate in your insurance network, please consult with your insurance company to find a nearby participating provider. Patient Education Materials: Vitreous Detachment A MESSAGE TO ALL PATIENTS REGARDING OPIOIDS PRESCRIPTION OPIOIDS: WHAT YOU NEED TO KNOW Prescription opioids can be used to help relieve ykwqffea-ho-mwvsuj pain and are often prescribed following a [...] Administration (www.fda.gov (more content not included)... Normal [facility] Office Visiton 12-11-2023 Follow-up visit [id number] Ike Flannery 1970 F Date Provider Department Center 12/11/2023 SANDRITA HOFF [facility] Anthony Heal Family History Adopted: Yes Problem Relation Age of Onset Heart attack Father Family Status - Relation Status Age at Father Level of Service:04956 AR OFFICE/OUTPATIENT NEW HIGH MDM 60 MINUTES Normal [facility] CBC AND AUTO DIFFon 12-09-19 24 ABSOLUTE BASOPHIL 0.0 X10E9/L Normal 0.0-0.2 [facility] Comment on above: Performed By: #### B MP, CBC #### [facility] ([id number]) [address] [place] [address] #### 6793-4 #### [facility] ([id number]) [address], [address] [place] [address] ABSOLUTE NEUTROPHIL 3.6 X10E9/L Normal 1.5-6.6 [facility] Comment on above: Performed By: #### B MP, CBC #### [facility] ([id number]) [address] [place] [address] #### 6793-4 #### [facility] ([id number]) [address], [address] [place] [address] Basophils/100 WBC (Bld) 0.2 % Normal [facility] Comment on above: Performed By: #### B MP, CBC #### [facility] ([id number]) [address] [place] [address] #### 6793-4 #### [facility] ([id number]) [address] [address] [place] [address] Eosinophils (Bld) [#/Vol] 0.0 10*3/uL Normal 0.0-0.4 [facility] Comment on above: Performed By: #### B MP, CBC #### [facility] ([id number]) [address] [place] [address] #### 6793-4 #### [facility] ([id number]) [address], [address] [place] [address] Eosinophils/100 WBC (Bld) 0.0 % Normal [facility] Comment on above: Performed By: #### B MP, CBC #### [facility] ([id number]) [address] [place] [address] #### 6793-4 #### [facility] ([id number]) [address] [address] [place] [address] Erythrocyte distribution width (RBC) [Ratio] 14.6 % Normal 11.5-15.0 [facility] Comment on above: Performed By: #### B MP, CBC #### [facility] ([id number]) [address] [place] [address]3059 #### 6793-4 #### [facility] ([id number]) [address], [address] [place] [address] Hematocrit (Bld) [Volume fraction] 22.0 % Low 35-47 [facility] Comment on above: Performed By: #### B MP, CBC #### [facility] ([id number]) [address] [place] [address] 689[address] #### 6793-4 #### [facility] ([id number]) [address], [address] [place] [address] Hemoglobin (Bld) [Mass/Vol] 7.4 g/dL Low 11.7-15.5 [facility] Comment on above: Performed By: #### B MP, CBC #### [facility] ([id number]) [address] [place] [address] 96185 #### 6793-4 #### [facility] ([id number]) [address], [address] [place] [address] Lymphocytes (Bld) [#/Vol] 0.5 10*3/uL Low 1.0-3.5 [facility] Comment on above: Performed By: #### B MP, CBC #### [facility] ([id number]) [address] [place] [address] 23433 #### 6793-4 #### [facility] ([id number]) [address], [address] [place] [address] Lymphocytes/100 WBC (Bld) 12.0 % Normal [facility] Comment on above: Performed By: #### B MP, CBC #### [facility] ([id number]) [address] [place] [address] #### 6793-4 #### [facility] ([id number]) [address], [address] [place] [address] MCH (RBC) [Entitic mass] 29.9 pg Normal 27-34 [facility] Comment on above: Performed By: #### Willis MP, CBC #### [facility] ([id number]) [address] [place] [address] #### 6793-4 #### [facility] ([id number]) [address], [address] [place] [address] MCHC (RBC) [Mass/Vol] 33.8 g/dL Normal 32-36 [facility] Comment on above: Performed By: #### Willis ALTAMIRANO, CBC #### [facility] ([id number]) [address] [place], [place] [address] #### 6793-4 #### [facility] ([id number]) [address], [address] [place] [address] MCV (RBC) [Entitic vol] 89 fL Normal 80-100 [facility] Comment on above: Performed By: #### Willis MP, CBC #### [facility] ([id number]) [address] [place] [address] 08320 #### 6793-4 #### [facility] ([id number]) [address], [address] [place] [address] Monocytes (Bld) [#/Vol] 0.2 10*3/uL Normal 0-0.9 [facility] Comment on above: Performed By: #### Willis MP, CBC #### [facility] ([id number]) [address] [place] [address] 59348 #### 6793-4 #### [facility] ([id number]) [address], [address] [place] [address] Monocytes/100 WBC (Bld) 4.6 % Normal [facility] Comment on above: Performed By: #### B MP, CBC #### [facility] ([id number]) [address] [place] [address]2851 #### 6793-4 #### [facility] ([id number]) [address], [facility] [address] [place] [address] Neutrophils/100 WBC (Bld) 83.2 % Normal [facility] Comment on above: Performed By: #### B MP, CBC #### [facility] ([id number]) [address] [place] [address] #### 6793-4 #### [facility] ([id number]) [address], [facility] [address] [place] [address] Platelet mean volume (Bld) [Entitic vol] 7.6 fL Normal 7-12 [facility] Comment on above: Performed By: #### B MP, CBC #### [facility] ([id number]) [address] [place] [address] #### 6793-4 #### [facility] ([id number]) [address], [facility] [address] [place] [address] Platelets (Bld) [#/Vol] 153 10*3/uL Normal 150-450 [facility] Comment on above: Performed By: #### B MP, CBC #### [facility] ([id number]) [address] [place] [address]40 #### 6793-4 #### [facility] ([id number]) [address] [address] [place] [address] RBC COUNT 2.48 X10E12/L Low 3.80-5.20 [facility] Comment on above: Performed By: #### B MP, CBC #### [facility] ([id number]) [address] [place] [address] #### 6793-4 #### [facility] ([id number]) [address] [place] [address], [address] [place] [address] WBC (Bld) [#/Vol] 4.3 10*3/uL Normal 4.0-11.0 [facility] Comment on above: Performed By: #### Willis MP, CBC #### [facility] ([id number]) [address] [place] [address]4532 #### 6793-4 #### [facility] ([id number]) [address] [place] [address], [address] [place] [address] CBC auto differentialon 10-0 Basophils (Bld) [#/Vol] 0.0 10*3/uL [facility] Basophils/100 WBC (Bld) 0.2 % [facility] Eosinophils (Bld) [#/Vol] 0.0 10*3/uL [facility] Eosinophils/100 WBC (Bld) 0.0 % [facility] Erythrocyte distribution width (RBC) [Ratio] 14.6 % 11.5 - 15.0 % [facility] Hematocrit (Bld) [Volume fraction] 22.0 % Low 35 - 47 % [facility] Hemoglobin (Bld) [Mass/Vol] 7.4 g/dL Low 11.7 - 15.5 g/dL [facility] Interpretation and review of laboratory results Abnormal [facility] Lymphocytes (Bld) [#/Vol] 0.5 10*3/uL Low [facility] Lymphocytes/100 WBC (Bld) 12.0 % [facility] MCH (RBC) [Entitic mass] 29.9 pg 27 - 34 pg [facility] MCHC (RBC) [Mass/Vol] 33.8 g/dL 32 - 3 6 g/dL [facility] MCV (RBC) [Entitic vol] 89 fL 80 - 100 fL [facility] Monocytes (Bld) [#/Vol] 0.2 10*3/uL [facility] Monocytes/100 WBC (Bld) 4.6 % P [facility] Neutrophils (Bld) [#/Vol] 3.6 10*3/uL [facility] Neutrophils/100 WBC (Bld) 83.2 % [facility] Platelet mean volume (Bld) [Entitic vol] 7.6 fL 7 - 12 fL [facility] Platelets (Bld) [#/Vol] 153 10*3/uL [facility] RBC (Bld) [#/Vol] 2.48 10*6/uL Low [facility] WBC corrected for nucl RBC Auto (Bld) [#/Vol] 4.3 [facility] COMPREHENSIVE METABOLIC PANE [place] 12-09-2023 Albumin [Mass/Vol] 3.2 g/dL Normal 3.2-5.3 [facility] Comment on above: Performed By: #### B ADARSH, CBC #### [facility] ([id number]) [address] [place] [address]3093 #### 6793-4 #### [facility] ([id number]) [address], [address] [place] [address] ALP [Catalytic activity/Vol] 66 U/L Normal 39-130 [facility] Comment on above: Performed By: #### Willis MP, CBC #### [facility] ([id number]) [address] [place] [address] 88782 #### 6793-4 #### [facility] ([id number]) [address], [address] [place] [address] ALT [Catalytic activity/Vol] 30 U/L Normal 0-31 [facility] Comment on above: Performed By: #### B MP, CBC #### [facility] ([id number]) [address] [place] [address] 52851 #### 6793-4 #### [facility] ([id number]) [address], [address] [place] [address] Anion gap [Moles/Vol] 7 mmol/L Normal 5-15 [facility] Comment on above: Performed By: #### B MP, CBC #### [facility] ([id number]) [address] [place] [address] 03902 #### 6793-4 #### [facility] ([id number]) [address], [address] [place] [address] AST [Catalytic activity/Vol] 39 U/L Normal 0-41 [facility] Comment on above: Performed By: #### Willis MP, CBC #### [facility] ([id number]) [address] [place] [address] 45744 #### 6793-4 #### [facility] ([id number]) [address] [facility], [address] [place] [address] Bilirubin [Mass/Vol] 0.6 mg/dL Normal 0.3-1.2 [facility] Comment on above: Performed By: #### Willis MP, CBC #### [facility] ([id number]) [address] [place] [address] 19298 #### 6793-4 #### [facility] ([id number]) [address] [facility], [address] [place] [address] Calcium [Mass/Vol] 8.7 mg/dL Normal 8.5-10.5 [facility] Comment on above: Performed By: #### Willis MP, CBC #### [facility] ([id number]) [address] [place] [address]4036 #### 6793-4 #### [facility] ([id number]) [address], [address] [place] [address] Chloride [Moles/Vol] 106 mmol/L Normal 98-109 [facility] Comment on above: Performed By: #### Willis MP, CBC #### [facility] ([id number]) [address] [place] [address]26 #### 6793-4 #### [facility] ([id number]) [address] [facility], [address] [place] [address] CO2 [Moles/Vol] 26 mmol/L Normal 22-32 [facility] Comment on above: Performed By: #### B ADARSH, CBC #### [facility] ([id number]) [address] [place] [address]124 #### 6793-4 #### [facility] ([id number]) [address] [place] [address], [address] [place] [address] Creatinine [Mass/Vol] 1.50 mg/dL High 0.40-1.00 [facility] Comment on above: Result Comment: METH OD TRACEABLE TO IDMS STANDARD Performed By: #### B ADARSH, CBC #### [facility] ([id number]) [address] [place] [address] 85445 #### 6793-4 #### [facility] ([id number]) [address] [place] [address] GFR/1.73 sq M.predicted among non-blacks MDRD (S/P/Bld) [Vol rate/Area] 41 mL/min/{1.73_m2} Low >59 [facility] Comment on above: Result Comment: Reported eGFR is based on the CKD-EPI 2020 equation that does not use a race coefficient. Performed By: #### B ADARSH, CBC #### [facility] ([id number]) [address] [place] [address]241 #### 6793-4 #### [facility] ([id number]) [address] [place] [address] [address] [place] [address] Glucose [Mass/Vol] 160 mg/dL High 65-99 [facility] Comment on above: Performed By: #### B ADARSH, CBC #### [facility] ([id number]) [address] [place] [address] 62284 #### 6793-4 #### [facility] ([id number]) [address], [address] [place] [address] Potassium [Moles/Vol] 3.8 mmol/L Normal 3.5-5.0 [facility] Comment on above: Performed By: #### Willis MP, CBC #### [facility] ([id number]) [address] [place] [address] 59142 #### 6793-4 #### [facility] ([id number]) [address], [address] [place] [address] Protein [Mass/Vol] 5.9 g/dL Low 6.0-8.0 [facility] Comment on above: Performed By: #### Willis MP, CBC #### [facility] ([id number]) [address] [place] [address] 11885 #### 6793-4 #### [facility] ([id number]) [address], [address] [place] [address] Sodium [Moles/Vol] 139 mmol/L Normal 134-146 [facility] Comment on above: Performed By: #### Willis MP, CBC #### [facility] ([id number]) [address] [place] [address] 65255 #### 6793-4 #### [facility] ([id number]) [address], [address] [place] [address] Urea nitrogen [Mass/Vol] 23 mg/dL Normal 5-23 [facility] Comment on above: Performed By: #### Willis MP, CBC #### [facility] ([id number]) [address] [place] [address] 17426 #### 6793-4 #### [facility] ([id number]) [address], [address] [place] [address] Comprehensive metabolic pane rome 12-09-2023 Albumin [Mass/Vol] 3.2 g/dL 3.2 - 5.3 g/dL [facility] ALP [Catalytic activity/Vol] 66 U/L 39 - 130 U/L [facility] ALT No additional P-5'-P [Catalytic activity/Vol] 30 U/L 0 - 31 U/L [facility] Anion gap [Moles/Vol] 7 mmol/L 5 - 15 mmol/L [facility] AST [Catalytic activity/Vol] 39 U/L 0 - 41 U/L [facility] Bilirubin [Mass/Vol] 0.6 mg/dL 0.3 - 1 .2 mg/dL [facility] Calcium [Mass/Vol] 8.7 mg/dL 8.5 - 10. 5 mg/dL [facility] Chloride [Moles/Vol] 106 mmol/L 98 - 10 9 mmol/L [facility] CO2 [Moles/Vol] 26 mmol/L 22 - 32 mmol/L [facility] Creatinine [Mass/Vol] 1.50 mg/dL High 0.40 - 1.00 mg/dL [facility] Comment on above: METHOD TRACEABLE TO [facility] STANDARD eGFR (CKD-EPI)non-race dependent 41 Low - PINF [facility] Comment on above: Reported eGFR is based on the CKD-EPI 2020 equation that does not use a race coefficient. Glucose [Mass/Vol] 160 mg/dL High 65 - 99 mg/dL [facility] Interpretation and review of laboratory results Abnormal [facility] Potassium [Moles/Vol] 3.8 mmol/L 3.5 - 5.0 mmol/L [facility] Protein [Mass/Vol] 5.9 g/dL Low 6.0 - 8.0 g/dL [facility] Sodium [Moles/Vol] 139 mmol/L 134 - 146 mmol/L [facility] Urea nitrogen [Mass/Vol] 23 mg/dL 5 - 23 mg/dL [facility] MAGNESIUMon 12-09-2023 Magnesium [Mass/Vol] 1.8 mg/dL Normal 1.8-2.6 [facility] Comment on above: Performed By: #### B MP, CBC #### [facility] ([id number]) [address] [place] [address] #### 6793-4 #### [facility] ([id number]) [address], [address] [place] [address] Magnesiumon 12-09-2023 Magnesium [Mass/Vol] 1.8 mg/dL 1.8 - 2 .6 mg/dL [facility] No Panel Informationon 12-08 [facility] PHOSPHORUSon 12-09-2023 Phosphate [Mass/Vol] 3.7 mg/dL Normal 2.4-4.9 [facility] Comment on above: Performed By: #### B MP, CBC #### [facility] ([id number]) [address] [place] [address] #### 6793-4 #### [facility] ([id number]) [address], [address] [place] [address] Phosphoruson 12-09-2023 Phosphate [Mass/Vol] 3.7 mg/dL 2.4 - 4 .9 mg/dL [facility] Bacteria identified Aer cx N om (Bld)on 12-08-2023 Service comment (Unsp spec) [Interp] SUBOPTIMAL VOLUME OF BLOOD COLLECTED, RESULTS MAY BE AFFECTED. [facility] Service comment (Unsp spec) [Interp] NO GROWTH 5 DAYS [facility] Service comment (Unsp spec) [Interp] SUBOPTIMAL VOLUME OF BLOOD COLLECTED, RESULTS MAY BE AFFECTED. [facility] Service comment (Unsp spec) [Interp] NO GROWTH 5 DAYS [facility] CBC AND AUTO DIFFon 12-08-19 24 ABSOLUTE BASOPHIL 0.0 X10E9/L Normal 0.0-0.2 [facility] Comment on above: Performed By: #### B MP, CBC #### [facility] ([id number]) [address] [place] [address] 92235 #### 6793-4 #### [facility] ([id number]) [address], [address] [place] [address] Basophils/100 WBC (Bld) 1.0 % Normal [facility] Comment on above: Performed By: #### B MP, CBC #### [facility] ([id number]) [address] [place] [address] 90408 #### 6793-4 #### [facility] ([id number]) [address], [address] [place] [address] Eosinophils (Bld) [#/Vol] 0.2 10*3/uL Normal 0.0-0.4 [facility] Comment on above: Performed By: #### B MP, CBC #### [facility] ([id number]) [address] [place] [address] 06204 #### 6793-4 #### [facility] ([id number]) [address], [address] [place] [address] Eosinophils/100 WBC (Bld) 7.0 % Normal [facility] Comment on above: Performed By: #### B MP, CBC #### [facility] ([id number]) [address] [place] [address] 01448 #### 6793-4 #### [facility] ([id number]) [address], [address] [place] [address] Erythrocyte distribution width (RBC) [Ratio] 14.4 % Normal 11.5-15.0 [facility] Comment on above: Performed By: #### B MP, CBC #### [facility] ([id number]) [address] [place] [address] 82285 #### 6793-4 #### [facility] ([id number]) [address], [address] [place] [address] Hematocrit (Bld) [Volume fraction] 23.1 % Low 35-47 [facility] Comment on above: Performed By: #### B MP, CBC #### [facility] ([id number]) [address] [place] [address] 29439 #### 6793-4 #### [facility] ([id number]) [address], [address] [place] [address] Hemoglobin (Bld) [Mass/Vol] 8.1 g/dL Low 11.7-15.5 [facility] Comment on above: Performed By: #### Willis MP, CBC #### [facility] ([id number]) [address] [place] [address] 41320 #### 6793-4 #### [facility] ([id number]) [address], [address] [place] [address] Lymphocytes (Bld) [#/Vol] 0.4 10*3/uL Low 1.0-3.5 [facility] Comment on above: Performed By: #### Willis MP, CBC #### [facility] ([id number]) [address] [place] [address] #### 6793-4 #### [facility] ([id number]) [address], [address] [place] [address] Lymphocytes/100 WBC (Bld) 14.0 % Normal [facility] Comment on above: Performed By: #### Willis MP, CBC #### [facility] ([id number]) [address] [place] [address] 79758 #### 6793-4 #### [facility] ([id number]) [address], [address] [place] [address] MCH (RBC) [Entitic mass] 31.1 pg Normal 27-34 [facility] Comment on above: Performed By: #### B MP, CBC #### [facility] ([id number]) [address] [place] [address] 11888 #### 6793-4 #### [facility] ([id number]) [address], [address] [place] [address] MCHC (RBC) [Mass/Vol] 35.1 g/dL Normal 32-36 [facility] Comment on above: Performed By: #### B MP, CBC #### [facility] ([id number]) [address] [place] [address] 14845 #### 6793-4 #### [facility] ([id number]) [address], [address] [place] [address] MCV (RBC) [Entitic vol] 89 fL Normal 80-100 [facility] Comment on above: Performed By: #### B MP, CBC #### [facility] ([id number]) [address] [place] [address] 62372 #### 6793-4 #### [facility] ([id number]) [address], [address] [place] [address] Monocytes (Bld) [#/Vol] 0.3 10*3/uL Normal 0-0.9 [facility] Comment on above: Performed By: #### B MP, CBC #### [facility] ([id number]) [address] [place] [address] 45[address] #### 6793-4 #### [facility] ([id number]) [address], [address] [place] [address] Monocytes/100 WBC (Bld) 9.0 % Normal [facility] Comment on above: Performed By: #### B MP, CBC #### [facility] ([id number]) [address] [place] [address] 37458 #### 6793-4 #### [facility] ([id number]) [address] [address] [place] [address] Neutrophils (Bld) [#/Vol] 2.0 10*3/uL Normal 1.5-6.6 [facility] Comment on above: Performed By: #### B MP, CBC #### [facility] ([id number]) [address] [place] [address] 16399 #### 6793-4 #### [facility] ([id number]) [address], [address] [place] [address] Platelet mean volume (Bld) [Entitic vol] 7.5 fL Normal 7-12 [facility] Comment on above: Performed By: #### B MP, CBC #### [facility] ([id number]) [address] [place] [address] 20936 #### 6793-4 #### [facility] ([id number]) [address], [address] [place] [address] Platelets (Bld) [#/Vol] 147 10*3/uL Low 150-450 [facility] Comment on above: Performed By: #### B MP, CBC #### [facility] ([id number]) [address] [place] [address] 41706 #### 6793-4 #### [facility] ([id number]) [address], [address] [place] [address] RBC COUNT 2.61 X10E12/L Low 3.80-5.20 [facility] Comment on above: Performed By: #### B MP, CBC #### [facility] ([id number]) [address] [place] [address] 61811 #### 6793-4 #### [facility] ([id number]) [address], [address] [place] [address] RBC morphology finding Nom (Bld) REVIEWED Normal [facility] Comment on above: Performed By: #### B MP, CBC #### [facility] ([id number]) [address] [place] [address] 07726 #### 6793-4 #### [facility] ([id number]) [address], [address] [place] [address] SEG NEUTROPHIL 69.0 % Normal [facility] Comment on above: Performed By: #### B MP, CBC #### [facility] ([id number]) [address] [place] [address] 40599 #### 6793-4 #### [facility] ([id number]) [address] [place] [address], [address] [place] [address] WBC (Bld) [#/Vol] 2.9 10*3/uL Low 4.0-11.0 [facility] Comment on above: Performed By: #### B MP, CBC #### [facility] ([id number]) [address] [place] [address] 91648 #### 6793-4 #### [facility] ([id number]) [address] [place] [address], [address] [place] [address] CBC auto differentialon 10-0 Basophils (Bld) [#/Vol] 0.0 10*3/uL [facility] Basophils/100 WBC (Bld) 1.0 % [facility] Eosinophils (Bld) [#/Vol] 0.2 10*3/uL [facility] Eosinophils/100 WBC (Bld) 7.0 % [facility] Erythrocyte distribution width (RBC) [Ratio] 14.4 % 11.5 - 15.0 % [facility] Hematocrit (Bld) [Volume fraction] 23.1 % Low 35 - 47 % [facility] Hemoglobin (Bld) [Mass/Vol] 8.1 g/dL Low 11.7 - 15.5 g/dL [facility] Interpretation and review of laboratory results Abnormal [facility] Lymphocytes (Bld) [#/Vol] 0.4 10*3/uL Low [facility] Lymphocytes/100 WBC (Bld) 14.0 % [facility] MCH (RBC) [Entitic mass] 31.1 pg 27 - 34 pg [facility] MCHC (RBC) [Mass/Vol] 35.1 g/dL 32 - 3 6 g/dL [facility] MCV (RBC) [Entitic vol] 89 fL 80 - 100 fL [facility] Monocytes (Bld) [#/Vol] 0.3 10*3/uL [facility] Monocytes/100 WBC (Bld) 9.0 % [facility] Neutrophils (Bld) [#/Vol] 2.0 10*3/uL [facility] Platelet mean volume (Bld) [Entitic vol] 7.5 fL 7 - 12 fL [facility] Platelets (Bld) [#/Vol] 147 10*3/uL Low [facility] Polymorphonuclear cells/100 WBC (Bld) REVIEWED [facility] RBC (Bld) [#/Vol] 2.61 10*6/uL Low [facility] Segmented neutrophils/100 WBC (Bld) 69.0 % [facility] WBC corrected for nucl RBC Auto (Bld) [#/Vol] 2.9 Low [facility] COMPREHENSIVE METABOLIC PANE [place] 12-08-2023 Albumin [Mass/Vol] 3.2 g/dL Normal 3.2-5.3 [facility] Comment on above: Performed By: #### B MP, CBC #### [facility] ([id number]) [address] [place] [address] 59918 #### 6793-4 #### [facility] ([id number]) [address], [address] [place] [address] ALP [Catalytic activity/Vol] 64 U/L Normal 39-130 [facility] Comment on above: Performed By: #### B MP, CBC #### [facility] ([id number]) [address] [place] [address] 25588 #### 6793-4 #### [facility] ([id number]) [address], [address] [place] [address] ALT [Catalytic activity/Vol] 18 U/L Normal 0-31 [facility] Comment on above: Performed By: #### B MP, CBC #### [facility] ([id number]) [address] [place] [address] 63166 #### 6793-4 #### [facility] ([id number]) [address], [address] [place] [address] Anion gap [Moles/Vol] 8 mmol/L Normal 5-15 [facility] Comment on above: Performed By: #### B MP, CBC #### [facility] ([id number]) [address] [place] [address] 49471 #### 6793-4 #### [facility] ([id number]) [address], [address] [place] [address] AST [Catalytic activity/Vol] 28 U/L Normal 0-41 [facility] Comment on above: Performed By: #### B MP, CBC #### [facility] ([id number]) [address] [place] [address] 49000 #### 6793-4 #### [facility] ([id number]) [address], [address] [place] [address] Bilirubin [Mass/Vol] 0.6 mg/dL Normal 0.3-1.2 [facility] Comment on above: Performed By: #### B MP, CBC #### [facility] ([id number]) [address] [place] [address] 50971 #### 6793-4 #### [facility] ([id number]) [address], [address] [place] [address] Calcium [Mass/Vol] 8.7 mg/dL Normal 8.5-10.5 [facility] Comment on above: Performed By: #### B MP, CBC #### [facility] ([id number]) [address] [place] [address] 13996 #### 6793-4 #### [facility] ([id number]) [address], [address] [place] [address] Chloride [Moles/Vol] 101 mmol/L Normal 98-109 [facility] Comment on above: Performed By: #### B MP, CBC #### [facility] ([id number]) [address] [place] [address] 91524 #### 6793-4 #### [facility] ([id number]) [address], [address] [place] [address] CO2 [Moles/Vol] 27 mmol/L Normal 22-32 [facility] Comment on above: Performed By: #### B MP, CBC #### [facility] ([id number]) [address] [place] [address] 31381 #### 6793-4 #### [facility] ([id number]) [address], [address] [place] [address] Creatinine [Mass/Vol] 1.89 mg/dL High 0.40-1.00 [facility] Comment on above: Result Comment: METH OD TRACEABLE TO IDMS STANDARD Performed By: #### B ADARSH, CBC #### [facility] ([id number]) [address] [place] [address] 66884 #### 6793-4 #### [facility] ([id number]) [address], [address] [place] [address] GFR/1.73 sq M.predicted among non-blacks MDRD (S/P/Bld) [Vol rate/Area] 31 mL/min/{1.73_m2} Low >59 [facility] Comment on above: Result Comment: Reported eGFR is based on the CKD-EPI 2020 equation that does not use a race coefficient. Performed By: #### B MP, CBC #### [facility] ([id number]) [address] [place] [address] 01109 #### 6793-4 #### [facility] ([id number]) [address], [address] [place] [address] Glucose [Mass/Vol] 99 mg/dL Normal 65-99 [facility] Comment on above: Performed By: #### B MP, CBC #### [facility] ([id number]) [address] [place] [address] 04419 #### 6793-4 #### [facility] ([id number]) [address], [address] [place] [address] Potassium [Moles/Vol] 3.2 mmol/L Low 3.5-5.0 [facility] Comment on above: Performed By: #### Willis MP, CBC #### [facility] ([id number]) [address] [place] [address] 62012 #### 6793-4 #### [facility] ([id number]) [address], [address] [place] [address] Protein [Mass/Vol] 5.6 g/dL Low 6.0-8.0 [facility] Comment on above: Performed By: #### B MP, CBC #### [facility] ([id number]) [address] [place] [address] 81693 #### 6793-4 #### [facility] ([id number]) [address], [address] [place] [address] Sodium [Moles/Vol] 136 mmol/L Normal 134-146 [facility] Comment on above: Performed By: #### Willis MP, CBC #### [facility] ([id number]) [address] [place] [address] 88489 #### 6793-4 #### [facility] ([id number]) [address], [address] [place] [address] Urea nitrogen [Mass/Vol] 24 mg/dL High 5-23 [facility] Comment on above: Performed By: #### B MP, CBC #### [facility] ([id number]) [address] [place] [address] 12015 #### 6793-4 #### [facility] ([id number]) [address] [facility], [address] [place] [address] Comprehensive metabolic pane rome 12-08-2023 Albumin [Mass/Vol] 3.2 g/dL 3.2 - 5.3 g/dL [facility] ALP [Catalytic activity/Vol] 64 U/L 39 - 130 U/L [facility] ALT No additional P-5'-P [Catalytic activity/Vol] 18 U/L 0 - 31 U/L [facility] Anion gap [Moles/Vol] 8 mmol/L 5 - 15 mmol/L [facility] AST [Catalytic activity/Vol] 28 U/L 0 - 41 U/L [facility] Bilirubin [Mass/Vol] 0.6 mg/dL 0.3 - 1 .2 mg/dL [facility] Calcium [Mass/Vol] 8.7 mg/dL 8.5 - 10. 5 mg/dL [facility] Chloride [Moles/Vol] 101 mmol/L 98 - 10 9 mmol/L [facility] CO2 [Moles/Vol] 27 mmol/L 22 - 32 mmol/L [facility] Creatinine [Mass/Vol] 1.89 mg/dL High 0.40 - 1.00 mg/dL [facility] Comment on above: METHOD TRACEABLE TO [facility] STANDARD eGFR (CKD-EPI)non-race dependent 31 Low - PINF [facility] Comment on above: Reported eGFR is based on the CKD-EPI 2020 equation that does not use a race coefficient. Glucose [Mass/Vol] 99 mg/dL 65 - 99 mg/dL [facility] Potassium [Moles/Vol] 3.2 mmol/L Low 3.5 - 5.0 mmol/L [facility] Protein [Mass/Vol] 5.6 g/dL Low 6.0 - 8.0 g/dL [facility] Sodium [Moles/Vol] 136 mmol/L 134 - 146 mmol/L [facility] Urea nitrogen [Mass/Vol] 24 mg/dL High 5 - 23 mg/dL [facility] MAGNESIUMon 12-08-2023 Magnesium [Mass/Vol] 2.5 mg/dL Normal 1.8-2.6 [facility] Comment on above: Performed By: #### B MP, CBC #### [facility] ([id number]) [address] [place] [address] 61836 #### 6793-4 #### [facility] ([id number]) [address], [address] [place] [address] Magnesium [Mass/Vol] 1.5 mg/dL Low 1.8-2.6 [facility] Comment on above: Performed By: #### B MP, CBC #### [facility] ([id number]) [address] [place] [address] 18685 #### 6793-4 #### [facility] ([id number]) [address], [address] [place] [address] Magnesiumon 12-08-2023 Magnesium [Mass/Vol] 2.5 mg/dL 1.8 - 2 .6 mg/dL [facility] Magnesium [Mass/Vol] 1.5 mg/dL Low 1.8 - 2 .6 mg/dL [facility] No Panel Informationon 12-07 [facility] Interpretation and review of laboratory results Abnormal [facility] PHOSPHORUSon 12-08-2023 Phosphate [Mass/Vol] 4.1 mg/dL Normal 2.4-4.9 [facility] Comment on above: Performed By: #### B MP, CBC #### [facility] ([id number]) [address] [place] [address] 56619 #### 6793-4 #### [facility] ([id number]) [address], [address] [place] [address] POTASSIUMon 12-08-2023 Potassium [Moles/Vol] 3.8 mmol/L Normal 3.5-5.0 [facility] Comment on above: Performed By: #### B MP, CBC #### [facility] ([id number]) [address] [place] [address] 53815 #### 6793-4 #### [facility] ([id number]) [address], [address] [place] [address] Potassium [Moles/Vol] 3.3 mmol/L Low 3.5-5.0 [facility] Comment on above: Performed By: #### B MP, CBC #### [facility] ([id number]) [address] [place] [address] 47570 #### 6793-4 #### [facility] ([id number]) [address] [address] [address], [address] [address] Phosphoruson 12-08-2023 Phosphate [Mass/Vol] 4.1 mg/dL 2.4 - 4 .9 mg/dL [facility] Potassiumon 12-08-2023 Potassium [Moles/Vol] 3.8 mmol/L 3.5 - 5.0 mmol/L [facility] Potassium [Moles/Vol] 3.3 mmol/L Low 3.5 - 5.0 mmol/L [facility] Potassium [Moles/Vol]on [facility] Interpretation and review of laboratory results Abnormal [facility] CBC AND AUTO DIFFon 12-07-19 24 ABSOLUTE BASOPHIL 0.0 X10E9/L Normal 0.0-0.2 [facility] Comment on above: Performed By: #### B MP, CBC #### [facility] ([id number]) [address] [place] [address] 22145 #### 6793-4 #### [facility] ([id number]) [address] [address] ABSOLUTE NEUTROPHIL 1.6 X10E9/L Normal 1.5-6.6 [facility] Comment on above: Performed By: #### B MP, CBC #### [facility] ([id number]) [address] [place] [address] 74602 #### 6793-4 #### [facility] ([id number]) [address] [facility], [address] [address] Basophils/100 WBC (Bld) 0.7 % Normal [facility] Comment on above: Performed By: #### B MP, CBC #### [facility] ([id number]) [address] [place] [address] 94562 #### 6793-4 #### [facility] ([id number]) [address], [address] [place] [address] Eosinophils (Bld) [#/Vol] 0.2 10*3/uL Normal 0.0-0.4 [facility] Comment on above: Performed By: #### B MP, CBC #### [facility] ([id number]) [address] [place] [address] 13815 #### 6793-4 #### [facility] ([id number]) [address], [address] [place] [address] Eosinophils/100 WBC (Bld) 7.0 % Normal [facility] Comment on above: Performed By: #### B MP, CBC #### [facility] ([id number]) [address] [place] [address] 22648 #### 6793-4 #### [facility] ([id number]) [address] [place] [address] Erythrocyte distribution width (RBC) [Ratio] 14.2 % Normal 11.5-15.0 [facility] Comment on above: Performed By: #### B MP, CBC #### [facility] ([id number]) [address] [place] [address] 23146 #### 6793-4 #### [facility] ([id number]) [address] [place] [address] Hematocrit (Bld) [Volume fraction] 22.3 % Low 35-47 [facility] Comment on above: Performed By: #### B MP, CBC #### [facility] ([id number]) [address] [place] [address] 72575 #### 6793-4 #### [facility] ([id number]) [address] [address] [place] [address] Hemoglobin (Bld) [Mass/Vol] 7.8 g/dL Low 11.7-15.5 [facility] Comment on above: Performed By: #### B MP, CBC #### [facility] ([id number]) [address] [place] [address] 89902 #### 6793-4 #### [facility] ([id number]) [address] [address] Lymphocytes (Bld) [#/Vol] 0.5 10*3/uL Low 1.0-3.5 [facility] Comment on above: Performed By: #### B MP, CBC #### [facility] ([id number]) [address] [place] [address] 52822 #### 6793-4 #### [facility] ([id number]) [address] [address] Lymphocytes/100 WBC (Bld) 19.6 % Normal [facility] Comment on above: Performed By: #### B MP, CBC #### [facility] ([id number]) [address] [place] [address] #### 6793-4 #### [facility] ([id number]) [address] [address] MCH (RBC) [Entitic mass] 30.9 pg Normal 27-34 [facility] Comment on above: Performed By: #### B MP, CBC #### [facility] ([id number]) [address] [place] [address] #### [id number] #### [facility] ([id number]) [address] [address] [place] [address] MCHC (RBC) [Mass/Vol] 34.9 g/dL Normal 32-36 [facility] Comment on above: Performed By: #### B MP, CBC #### [facility] ([id number]) [address] [place] [address] #### [id number] #### [facility] ([id number]) [address] [place] [address] MCV (RBC) [Entitic vol] 88 fL Normal 80-100 [facility] Comment on above: Performed By: #### B MP, CBC #### [facility] ([id number]) [address] [place] [address] 36116 #### 6793-4 #### [facility] ([id number]) [address], [address] [place] [address] Monocytes (Bld) [#/Vol] 0.3 10*3/uL Normal 0-0.9 [facility] Comment on above: Performed By: #### B MP, CBC #### [facility] ([id number]) [address] [place] [address] 02341 #### 6793-4 #### [facility] ([id number]) [address], [address] [place] [address] Monocytes/100 WBC (Bld) 12.5 % Normal [facility] Comment on above: Performed By: #### B MP, CBC #### [facility] ([id number]) [address] [place] [address] 77027 #### 6793-4 #### [facility] ([id number]) [address], [address] [place] [address] Neutrophils/100 WBC (Bld) 60.2 % Normal [facility] Comment on above: Performed By: #### B MP, CBC #### [facility] ([id number]) [address] [place] [address] 68646 #### 6793-4 #### [facility] ([id number]) [address], [address] [place] [address] Platelet mean volume (Bld) [Entitic vol] 6.9 fL Low 7-12 [facility] Comment on above: Performed By: #### B MP, CBC #### [facility] ([id number]) [address] [place], [place] [address] #### 6793-4 #### [facility] ([id number]) [address], [address] [place] [address] Platelets (Bld) [#/Vol] 150 10*3/uL Normal 150-450 [facility] Comment on above: Performed By: #### B MP, CBC #### [facility] ([id number]) [address] [place] [address] #### 6793-4 #### [facility] ([id number]) [address] [address] [place] [address] RBC COUNT 2.52 X10E12/L Low 3.80-5.20 [facility] Comment on above: Performed By: #### B MP, CBC #### [facility] ([id number]) [address] [place] [address] 64698 #### 6793-4 #### [facility] ([id number]) [address] [address] WBC (Bld) [#/Vol] 2.7 10*3/uL Low 4.0-11.0 [facility] Comment on above: Performed By: #### B MP, CBC #### [facility] ([id number]) [address] [place] [address] 18034 #### 6793-4 #### [facility] ([id number]) [address] [address] [place] [address] CBC auto differentialon 10-0 7-2024 Basophils (Bld) [#/Vol] 0.0 10*3/uL [facility] Basophils/100 WBC (Bld) 0.7 % P [facility] Eosinophils (Bld) [#/Vol] 0.2 10*3/uL [facility] Eosinophils/100 WBC (Bld) 7.0 % [facility] Erythrocyte distribution width (RBC) [Ratio] 14.2 % 11.5 - 15.0 % [facility] Hematocrit (Bld) [Volume fraction] 22.3 % Low 35 - 47 % [facility] Hemoglobin (Bld) [Mass/Vol] 7.8 g/dL Low 11.7 - 15.5 g/dL [facility] Interpretation and review of laboratory results Abnormal [facility] Lymphocytes (Bld) [#/Vol] 0.5 10*3/uL Low [facility] Lymphocytes/100 WBC (Bld) 19.6 % [facility] MCH (RBC) [Entitic mass] 30.9 pg 27 - 34 pg [facility] MCHC (RBC) [Mass/Vol] 34.9 g/dL 32 - 3 6 g/dL [facility] MCV (RBC) [Entitic vol] 88 fL 80 - 100 fL [facility] Monocytes (Bld) [#/Vol] 0.3 10*3/uL [facility] Monocytes/100 WBC (Bld) 12.5 % P [facility] Neutrophils (Bld) [#/Vol] 1.6 10*3/uL [facility] Neutrophils/100 WBC (Bld) 60.2 % [facility] Platelet mean volume (Bld) [Entitic vol] 6.9 fL Low 7 - 12 fL [facility] Platelets (Bld) [#/Vol] 150 10*3/uL [facility] RBC (Bld) [#/Vol] 2.52 10*6/uL Low [facility] WBC corrected for nucl RBC Auto (Bld) [#/Vol] 2.7 Low [facility] COMPREHENSIVE METABOLIC PANE [place] 12-07-2023 Albumin [Mass/Vol] 3.1 g/dL Low 3.2-5.3 [facility] Comment on above: Performed By: #### Willis MP, CBC #### [facility] ([id number]) [address] [place] [address] 21364 #### 6793-4 #### [facility] ([id number]) [address], [address] [place] [address] ALP [Catalytic activity/Vol] 56 U/L Normal 39-130 [facility] Comment on above: Performed By: #### Willis MP, CBC #### [facility] ([id number]) [address] [place] [address] 24587 #### 6793-4 #### [facility] ([id number]) [address], [address] [place] [address] ALT [Catalytic activity/Vol] 13 U/L Normal 0-31 [facility] Comment on above: Performed By: #### Willis ALTAMIRANO, CBC #### [facility] ([id number]) [address] [place] [address] 63107 #### 6793-4 #### [facility] ([id number]) [address], [address] [place] [address] Anion gap [Moles/Vol] 8 mmol/L Normal 5-15 [facility] Comment on above: Performed By: #### Willis ALTAMIRANO, CBC #### [facility] ([id number]) [address] [place] [address] 44357 #### 6793-4 #### [facility] ([id number]) [address], [address] [place] [address] AST [Catalytic activity/Vol] 22 U/L Normal 0-41 [facility] Comment on above: Performed By: #### Willis MP, CBC #### [facility] ([id number]) [address] [place] [address] 61271 #### 6793-4 #### [facility] ([id number]) [address], [address] [place] [address] Bilirubin [Mass/Vol] 0.5 mg/dL Normal 0.3-1.2 [facility] Comment on above: Performed By: #### Willis MP, CBC #### [facility] ([id number]) [address] [place] [address] 92761 #### 6793-4 #### [facility] ([id number]) [address], [address] [place] [address] Calcium [Mass/Vol] 8.8 mg/dL Normal 8.5-10.5 [facility] Comment on above: Performed By: #### Willis MP, CBC #### [facility] ([id number]) [address] [place] [address] 99626 #### 6793-4 #### [facility] ([id number]) [address], [address] [place] [address] Chloride [Moles/Vol] 102 mmol/L Normal 98-109 [facility] Comment on above: Performed By: #### Willis MP, CBC #### [facility] ([id number]) [address] [place] [address] 14470 #### 6793-4 #### [facility] ([id number]) [address], [address] [place] [address] CO2 [Moles/Vol] 28 mmol/L Normal 22-32 [facility] Comment on above: Performed By: #### B MP, CBC #### [facility] ([id number]) [address] [place] [address] 11886 #### 6793-4 #### [facility] ([id number]) [address], [address] [place] [address] Creatinine [Mass/Vol] 2.07 mg/dL High 0.40-1.00 [facility] Comment on above: Result Comment: METH OD TRACEABLE TO IDMS STANDARD Performed By: #### B ADARSH, CBC #### [facility] ([id number]) [address] [place] [address] 02240 #### 6793-4 #### [facility] ([id number]) [address], [address] [place] [address] GFR/1.73 sq M.predicted among non-blacks MDRD (S/P/Bld) [Vol rate/Area] 28 mL/min/{1.73_m2} Low >59 [facility] Comment on above: Result Comment: Reported eGFR is based on the CKD-EPI 2020 equation that does not use a race coefficient. Performed By: #### B ADARSH, CBC #### [facility] ([id number]) [address] [place] [address] 10696 #### 6793-4 #### [facility] ([id number]) [address], [address] [place] [address] Glucose [Mass/Vol] 99 mg/dL Normal 65-99 [facility] Comment on above: Performed By: #### Willis ALTAMIRANO, CBC #### [facility] ([id number]) [address] [place] [address] 85024 #### 6793-4 #### [facility] ([id number]) [address], [address] [place] [address] Potassium [Moles/Vol] 3.3 mmol/L Low 3.5-5.0 [facility] Comment on above: Performed By: #### Willis ALTAMIRANO, CBC #### [facility] ([id number]) [address] [place] [address] 94686 #### 6793-4 #### [facility] ([id number]) [address], [address] [place] [address] Protein [Mass/Vol] 5.6 g/dL Low 6.0-8.0 [facility] Comment on above: Performed By: #### B ADARSH, CBC #### [facility] ([id number]) [address] [place] [address] 65181 #### 6793-4 #### [facility] ([id number]) [address], [address] [place] [address] Sodium [Moles/Vol] 138 mmol/L Normal 134-146 [facility] Comment on above: Performed By: #### B MP, CBC #### [facility] ([id number]) [address] [place] [address] #### 6793-4 #### [facility] ([id number]) [address] [facility], [address] [place] [address] Urea nitrogen [Mass/Vol] 27 mg/dL High 5-23 [facility] Comment on above: Performed By: #### B MP, CBC #### [facility] ([id number]) [address] [place] [address] 83399 #### 6793-4 #### [facility] ([id number]) [address] [facility], [address] [place] [address] Comprehensive metabolic pane rome 12-07-2023 Albumin [Mass/Vol] 3.1 g/dL Low 3.2 - 5.3 g/dL [facility] ALP [Catalytic activity/Vol] 56 U/L 39 - 130 U/L [facility] ALT No additional P-5'-P [Catalytic activity/Vol] 13 U/L 0 - 31 U/L [facility] Anion gap [Moles/Vol] 8 mmol/L 5 - 15 mmol/L [facility] AST [Catalytic activity/Vol] 22 U/L 0 - 41 U/L [facility] Bilirubin [Mass/Vol] 0.5 mg/dL 0.3 - 1 .2 mg/dL [facility] Calcium [Mass/Vol] 8.8 mg/dL 8.5 - 10. 5 mg/dL [facility] Chloride [Moles/Vol] 102 mmol/L 98 - 10 9 mmol/L [facility] CO2 [Moles/Vol] 28 mmol/L 22 - 32 mmol/L [facility] Creatinine [Mass/Vol] 2.07 mg/dL High 0.40 - 1.00 mg/dL [facility] Comment on above: METHOD TRACEABLE TO [facility] STANDARD eGFR (CKD-EPI)non-race dependent 28 Low - PINF [facility] Comment on above: Reported eGFR is based on the CKD-EPI 2020 equation that does not use a race coefficient. Glucose [Mass/Vol] 99 mg/dL 65 - 99 mg/dL [facility] Potassium [Moles/Vol] 3.3 mmol/L Low 3.5 - 5.0 mmol/L [facility] Protein [Mass/Vol] 5.6 g/dL Low 6.0 - 8.0 g/dL [facility] Sodium [Moles/Vol] 138 mmol/L 134 - 146 mmol/L [facility] Urea nitrogen [Mass/Vol] 27 mg/dL High 5 - 23 mg/dL [facility] MAGNESIUMon 12-07-2023 Magnesium [Mass/Vol] 2.0 mg/dL Normal 1.8-2.6 [facility] Comment on above: Performed By: #### B ADARSH, CBC #### [facility] ([id number]) [address] [place] [address] #### 6793-4 #### [facility] ([id number]) [address] [place] [address], [address] [place] [address] Magnesiumon 12-07-2023 Magnesium [Mass/Vol] 2.0 mg/dL 1.8 - 2 .6 mg/dL [facility] No Panel Informationon 12-06 Interpretation and review of laboratory results Abnormal [facility] PHOSPHORUSon 12-07-2023 Phosphate [Mass/Vol] 5.4 mg/dL High 2.4-4.9 [facility] Comment on above: Performed By: #### B MP, CBC #### [facility] ([id number]) [address] [place] [address] #### 6793-4 #### [facility] ([id number]) [address], [address] [place] [address] Phosphoruson 12-07-2023 Phosphate [Mass/Vol] 5.4 mg/dL High 2.4 - 4 .9 mg/dL [facility] CBC AND AUTO DIFFon 12-06-19 ABSOLUTE BASOPHIL 0.0 X10E9/L Normal 0.0-0.2 [facility] Comment on above: Performed By: #### B MP, CBC #### [facility] ([id number]) [address] [place] [address] 16281 #### 6793-4 #### [facility] ([id number]) [address] [facility], [address] [place] [address] ABSOLUTE NEUTROPHIL 1.9 X10E9/L Normal 1.5-6.6 [facility] Comment on above: Performed By: #### B MP, CBC #### [facility] ([id number]) [address] [place] [address] 50280 #### 6793-4 #### [facility] ([id number]) [address] [place] [address], [address] [place] [address] Basophils/100 WBC (Bld) 0.5 % Normal [facility] Comment on above: Performed By: #### B MP, CBC #### [facility] ([id number]) [address] [place] [address] 18539 #### 6793-4 #### [facility] ([id number]) [address] [facility], [address] [place] [address] Eosinophils (Bld) [#/Vol] 0.2 10*3/uL Normal 0.0-0.4 [facility] Comment on above: Performed By: #### B MP, CBC #### [facility] ([id number]) [address] [place] [address] 64718 #### 6793-4 #### [facility] ([id number]) [address] [place] [address] Eosinophils/100 WBC (Bld) 7.7 % Normal [facility] Comment on above: Performed By: #### B MP, CBC #### [facility] ([id number]) [address] [place] [address] 49102 #### 6793-4 #### [facility] ([id number]) [address] [place] [address] Erythrocyte distribution width (RBC) [Ratio] 14.1 % Normal 11.5-15.0 [facility] Comment on above: Performed By: #### B MP, CBC #### [facility] ([id number]) [address] [place] [address] 89160 #### 6793-4 #### [facility] ([id number]) [address], [address] [place] [address] Hematocrit (Bld) [Volume fraction] 23.0 % Low 35-47 [facility] Comment on above: Performed By: #### B MP, CBC #### [facility] ([id number]) [address] [place] [address] 74138 #### 6793-4 #### [facility] ([id number]) [address], [address] [place] [address] Hemoglobin (Bld) [Mass/Vol] 7.8 g/dL Low 11.7-15.5 [facility] Comment on above: Performed By: #### B MP, CBC #### [facility] ([id number]) [address] [place] [address] 73704 #### 6793-4 #### [facility] ([id number]) [address], [address] [place] [address] Lymphocytes (Bld) [#/Vol] 0.4 10*3/uL Low 1.0-3.5 [facility] Comment on above: Performed By: #### B MP, CBC #### [facility] ([id number]) [address] [place] [address] 34918 #### 6793-4 #### [facility] ([id number]) [address], [address] [place] [address] Lymphocytes/100 WBC (Bld) 13.8 % Normal [facility] Comment on above: Performed By: #### B MP, CBC #### [facility] ([id number]) [address] [place] [address] 91465 #### 6793-4 #### [facility] ([id number]) [address], [address] [place] [address] MCH (RBC) [Entitic mass] 30.3 pg Normal 27-34 [facility] Comment on above: Performed By: #### B MP, CBC #### [facility] ([id number]) [address] [place] [address] 37758 #### 6793-4 #### [facility] ([id number]) [address], [address] [place] [address] MCHC (RBC) [Mass/Vol] 34.0 g/dL Normal 32-36 [facility] Comment on above: Performed By: #### B MP, CBC #### [facility] ([id number]) [address] [place] [address] 88182 #### 6793-4 #### [facility] ([id number]) [address], [address] [place] [address] MCV (RBC) [Entitic vol] 89 fL Normal 80-100 [facility] Comment on above: Performed By: #### B MP, CBC #### [facility] ([id number]) [address] [place] [address] 66788 #### 6793-4 #### [facility] ([id number]) [address], [address] [place] [address] Monocytes (Bld) [#/Vol] 0.4 10*3/uL Normal 0-0.9 [facility] Comment on above: Performed By: #### B MP, CBC #### [facility] ([id number]) [address] [place] [address] 58482 #### 6793-4 #### [facility] ([id number]) [address], [address] [place] [address] Monocytes/100 WBC (Bld) 14.0 % Normal [facility] Comment on above: Performed By: #### B MP, CBC #### [facility] ([id number]) [address] [place] [address] 09344 #### 6793-4 #### [facility] ([id number]) [address] [place] [address] Neutrophils/100 WBC (Bld) 64.0 % Normal [facility] Comment on above: Performed By: #### B MP, CBC #### [facility] ([id number]) [address] [place] [address] 97610 #### 6793-4 #### [facility] ([id number]) [address], [address] [place] [address] Platelet mean volume (Bld) [Entitic vol] 6.7 fL Low 7-12 [facility] Comment on above: Performed By: #### B MP, CBC #### [facility] ([id number]) [address] [place] [address] 03665 #### 6793-4 #### [facility] ([id number]) [address], [address] [place] [address] Platelets (Bld) [#/Vol] 172 10*3/uL Normal 150-450 [facility] Comment on above: Performed By: #### B MP, CBC #### [facility] ([id number]) [address] [place] [address] 58267 #### 6793-4 #### [facility] ([id number]) [address] [place] [address], [address] [place] [address] RBC COUNT 2.58 X10E12/L Low 3.80-5.20 [facility] Comment on above: Performed By: #### B MP, CBC #### [facility] ([id number]) [address] [place] [address] 53232 #### 6793-4 #### [facility] ([id number]) [address] [place] [address], [address] [address] WBC (Bld) [#/Vol] 3.0 10*3/uL Low 4.0-11.0 [facility] Comment on above: Performed By: #### B MP, CBC #### [facility] ([id number]) [address] [place] [address] 95787 #### 6793-4 #### [facility] ([id number]) [address] [place] [address], [address] [address] CBC auto differentialon 10-0 Basophils (Bld) [#/Vol] 0.0 10*3/uL [facility] Basophils/100 WBC (Bld) 0.5 % [facility] Eosinophils (Bld) [#/Vol] 0.2 10*3/uL [facility] Eosinophils/100 WBC (Bld) 7.7 % [facility] Erythrocyte distribution width (RBC) [Ratio] 14.1 % 11.5 - 15.0 % [facility] Hematocrit (Bld) [Volume fraction] 23.0 % Low 35 - 47 % [facility] Hemoglobin (Bld) [Mass/Vol] 7.8 g/dL Low 11.7 - 15.5 g/dL [facility] Interpretation and review of laboratory results Abnormal [facility] Lymphocytes (Bld) [#/Vol] 0.4 10*3/uL Low [facility] Lymphocytes/100 WBC (Bld) 13.8 % [facility] MCH (RBC) [Entitic mass] 30.3 pg 27 - 34 pg [facility] MCHC (RBC) [Mass/Vol] 34.0 g/dL 32 - 3 6 g/dL [facility] MCV (RBC) [Entitic vol] 89 fL 80 - 100 fL [facility] Monocytes (Bld) [#/Vol] 0.4 10*3/uL [facility] Monocytes/100 WBC (Bld) 14.0 % [facility] Neutrophils (Bld) [#/Vol] 1.9 10*3/uL [facility] Neutrophils/100 WBC (Bld) 64.0 % [facility] Platelet mean volume (Bld) [Entitic vol] 6.7 fL Low 7 - 12 fL [facility] Platelets (Bld) [#/Vol] 172 10*3/uL [facility] RBC (Bld) [#/Vol] 2.58 10*6/uL Low [facility] WBC corrected for nucl RBC Auto (Bld) [#/Vol] 3.0 Low [facility] COMPREHENSIVE METABOLIC PANE [place] 12-06-2023 Albumin [Mass/Vol] 3.3 g/dL Normal 3.2-5.3 [facility] Comment on above: Performed By: #### B MP, CBC #### [facility] ([id number]) [address] [place] [address] #### 6793-4 #### [facility] ([id number]) [address] [facility] [place] [address] ALP [Catalytic activity/Vol] 55 U/L Normal 39-130 [facility] Comment on above: Performed By: #### B MP, CBC #### [facility] ([id number]) [address] [place] [address] 90844 #### 6793-4 #### [facility] ([id number]) [address] [place] [address] ALT [Catalytic activity/Vol] 9 U/L Normal 0-31 [facility] Comment on above: Performed By: #### B MP, CBC #### [facility] ([id number]) [address] [place] [address] #### 6793-4 #### [facility] ([id number]) [address], [address] [place] [address] Anion gap [Moles/Vol] 9 mmol/L Normal 5-15 [facility] Comment on above: Performed By: #### B MP, CBC #### [facility] ([id number]) [address] [place] [address] 07791 #### 6793-4 #### [facility] ([id number]) [address], [address] [place] [address] AST [Catalytic activity/Vol] 16 U/L Normal 0-41 [facility] Comment on above: Performed By: #### B MP, CBC #### [facility] ([id number]) [address] [place] [address] 81057 #### 6793-4 #### [facility] ([id number]) [address] [place] [address] Bilirubin [Mass/Vol] 0.5 mg/dL Normal 0.3-1.2 [facility] Comment on above: Performed By: #### B MP, CBC #### [facility] ([id number]) [address] [place] [address] 91935 #### 6793-4 #### [facility] ([id number]) [address] [place] [address] Calcium [Mass/Vol] 9.0 mg/dL Normal 8.5-10.5 [facility] Comment on above: Performed By: #### Willis MP, CBC #### [facility] ([id number]) [address] [place] [address] 28094 #### [id number] #### [facility] ([id number]) [address], [address] [place] [address] Chloride [Moles/Vol] 102 mmol/L Normal 98-109 [facility] Comment on above: Performed By: #### B ADARSH, CBC #### [facility] ([id number]) [address] [place] [id number] #### [id number] #### [facility] ([id number]) [address], [address] [place] [address] CO2 [Moles/Vol] 26 mmol/L Normal 22-32 [facility] Comment on above: Performed By: #### B ADARSH, CBC #### [facility] ([id number]) [address] [place] [id number] #### 6793-4 #### [facility] ([id number]) [address], [address] [place] [address] Creatinine [Mass/Vol] 2.34 mg/dL High 0.40-1.00 [facility] Comment on above: Result Comment: METH OD TRACEABLE TO IDMS STANDARD Performed By: #### B ADARSH, CBC #### [facility] ([id number]) [address] [place] [address] [id number] #### [id number] #### [facility] ([id number]) [address], [address] [place] [address] GFR/1.73 sq M.predicted among non-blacks MDRD (S/P/Bld) [Vol rate/Area] 24 mL/min/{1.73_m2} Low >59 [facility] Comment on above: Result Comment: Reported eGFR is based on the CKD-EPI 2020 equation that does not use a race coefficient. Performed By: #### B ADARSH, CBC #### [facility] ([id number]) [address] [place] [address] 28056 #### 6793-4 #### [facility] ([id number]) [address], [address] [place] [address] Glucose [Mass/Vol] 100 mg/dL High 65-99 [facility] Comment on above: Performed By: #### Willis MP, CBC #### [facility] ([id number]) [address] [place] [address] #### 6793-4 #### [facility] ([id number]) [address] [place] [address] Potassium [Moles/Vol] 3.5 mmol/L Normal 3.5-5.0 [facility] Comment on above: Performed By: #### Willis ALTAMIRANO, CBC #### [facility] ([id number]) [address] [place] [address] #### 6793-4 #### [facility] ([id number]) [address], [address] [place] [address] Protein [Mass/Vol] 5.8 g/dL Low 6.0-8.0 [facility] Comment on above: Performed By: #### Willis MP, CBC #### [facility] ([id number]) [address] [place] [address] #### 6793-4 #### [facility] ([id number]) [address], [address] [place] [address] Sodium [Moles/Vol] 137 mmol/L Normal 134-146 [facility] Comment on above: Performed By: #### Willis MP, CBC #### [facility] ([id number]) [address] [place] [address] #### 6793-4 #### [facility] ([id number]) [address], [address] [place] [address] Urea nitrogen [Mass/Vol] 21 mg/dL Normal 5-23 [facility] Comment on above: Performed By: #### B MP, CBC #### [facility] ([id number]) [address] [place] [address] #### 6793-4 #### [facility] ([id number]) [address], [address] [place] [address] Comprehensive metabolic pane rome 12-06-2023 Albumin [Mass/Vol] 3.3 g/dL 3.2 - 5.3 g/dL [facility] ALP [Catalytic activity/Vol] 55 U/L 39 - 130 U/L [facility] ALT No additional P-5'-P [Catalytic activity/Vol] 9 U/L 0 - 31 U/L [facility] Anion gap [Moles/Vol] 9 mmol/L 5 - 15 mmol/L [facility] AST [Catalytic activity/Vol] 16 U/L 0 - 41 U/L [facility] Bilirubin [Mass/Vol] 0.5 mg/dL 0.3 - 1 .2 mg/dL [facility] Calcium [Mass/Vol] 9.0 mg/dL 8.5 - 10. 5 mg/dL [facility] Chloride [Moles/Vol] 102 mmol/L 98 - 10 9 mmol/L [facility] CO2 [Moles/Vol] 26 mmol/L 22 - 32 mmol/L [facility] Creatinine [Mass/Vol] 2.34 mg/dL High 0.40 - 1.00 mg/dL [facility] Comment on above: METHOD TRACEABLE TO IDRI STANDARD eGFR (CKD-EPI)non-race dependent 24 Low - PINF [facility] Comment on above: Reported eGFR is based on the CKD-EPI 2020 equation that does not use a race coefficient. Glucose [Mass/Vol] 100 mg/dL High 65 - 99 mg/dL [facility] Potassium [Moles/Vol] 3.5 mmol/L 3.5 - 5.0 mmol/L [facility] Protein [Mass/Vol] 5.8 g/dL Low 6.0 - 8.0 g/dL [facility] Sodium [Moles/Vol] 137 mmol/L 134 - 146 mmol/L [facility] Urea nitrogen [Mass/Vol] 21 mg/dL 5 - 23 mg/dL [facility] MAGNESIUMon 12-06-2023 Magnesium [Mass/Vol] 2.3 mg/dL Normal 1.8-2.6 [facility] Comment on above: Performed By: #### B MP, CBC #### [facility] ([id number]) [address] [place] [address] #### 6793-4 #### [facility] ([id number]) [address], [address] [place] [address] Magnesium [Mass/Vol] 1.5 mg/dL Low 1.8-2.6 [facility] Comment on above: Performed By: #### B MP, CBC #### [facility] ([id number]) [address] [place] [address] #### 6793-4 #### [facility] ([id number]) [address], [address] [place] [address] Magnesiumon 12-06-2023 Magnesium [Mass/Vol] 2.3 mg/dL 1.8 - 2 .6 mg/dL [facility] Magnesium [Mass/Vol] 1.5 mg/dL Low 1.8 - 2 .6 mg/dL [facility] Magnesium [Mass/Vol]on 12-05 [facility] No Panel Informationon 12-05 Interpretation and review of laboratory results Abnormal [facility] PHOSPHORUSon 12-06-2023 Phosphate [Mass/Vol] 5.0 mg/dL High 2.4-4.9 [facility] Comment on above: Performed By: #### B MP, CBC #### [facility] ([id number]) [address] [place] [address]85 #### 6793-4 #### [facility] ([id number]) [address] [address] [address], [address] [place] [address] Phosphoruson 12-06-2023 Phosphate [Mass/Vol] 5.0 mg/dL High 2.4 - 4 .9 mg/dL [facility] URINALYSISon 12-06-2023 Bilirubin Ql (U) Negative Normal NEG [facility] Comment on above: Performed By: #### B MP, CBC #### [facility] ([id number]) [address] [place] [address] #### 6793-4 #### [facility] ([id number]) [address] [place] [address] BLOOD/HGB Negative Normal NEG [facility] Comment on above: Performed By: #### Willis MP, CBC #### [facility] ([id number]) [address] [place] [address] #### 6793-4 #### [facility] ([id number]) [address], [address] [place] [address] Color (U) YELLOW Normal YELLOW [facility] Comment on above: Performed By: #### Willis MP, CBC #### [facility] ([id number]) [address] [place] [address] 918[address] #### 6793-4 #### [facility] ([id number]) [address], [address] [place] [address] Glucose Ql (U) Negative Normal NEG [facility] Comment on above: Performed By: #### Willis MP, CBC #### [facility] ([id number]) [address] [place] [address] #### 6793-4 #### [facility] ([id number]) [address], [address] [place] [address] Ketones Ql (U) Negative Normal NEG [facility] Comment on above: Performed By: #### Willis MP, CBC #### [facility] ([id number]) [address] [place] [address] #### 6793-4 #### [facility] ([id number]) [address], [address] [place] [address] Leukocyte esterase Test strip Ql (U) Trace Abnormal NEG [facility] Comment on above: Performed By: #### Willis MP, CBC #### [facility] ([id number]) [address] [place] [address] #### 6793-4 #### [facility] ([id number]) [address] [place] [address] Nitrite Ql (U) Negative Normal NEG [facility] Comment on above: Performed By: #### Willis MP, CBC #### [facility] ([id number]) [address] [place] [address] #### 6793-4 #### [facility] ([id number]) [address], [address] [place] [address] pH (U) 6.5 [pH] Normal 5.0-8.5 [facility] Comment on above: Performed By: #### Willis MP, CBC #### [facility] ([id number]) [address] [place] [address] #### 6793-4 #### [facility] ([id number]) [address], [address] [place] [address] Protein Ql (U) Negative Normal NEG [facility] Comment on above: Performed By: #### Willis MP, CBC #### [facility] ([id number]) [address] [place] [address] 79199 #### 6793-4 #### [facility] ([id number]) [address], [address] [place] [address] R.B.CELLS 1 /hpf Normal 0-5 [facility] Comment on above: Performed By: #### Willis MP, CBC #### [facility] ([id number]) [address] [place] [address] 98074 #### 6793-4 #### [facility] ([id number]) [address], [address] [place] [address] Specific gravity (U) [Rel density] 1.010 Normal 1.003-1.03 5 [facility] Comment on above: Performed By: #### Willis MP, CBC #### [facility] ([id number]) [address] [place] [address] 16007 #### 6793-4 #### [facility] ([id number]) [address], [address] [place] [address] SQUAMOUS EPITHELIUM 1 /hpf Normal 0-5 [facility] Comment on above: Performed By: #### Willis ALTAMIRANO, CBC #### [facility] ([id number]) [address] [place] [address] 49554 #### 6793-4 #### [facility] ([id number]) [address] [place] [address] TRANSITIONAL EPITH 1 /hpf High 0 [facility] Comment on above: Performed By: #### Willis MP, CBC #### [facility] ([id number]) [address] [place] [address] 17139 #### 6793-4 #### [facility] ([id number]) [address], [address] [place] [address] TURBIDITY CLEAR Normal CLEAR [facility] Comment on above: Performed By: #### Willis MP, CBC #### [facility] ([id number]) [address] [place] [address] 28362 #### 6793-4 #### [facility] ([id number]) [address], [address] [place] [address] Urobilinogen Qn (U) 0.2 {Ansley'U}/dL Normal <1.1 [facility] Comment on above: Performed By: #### B MP, CBC #### [facility] ([id number]) [address] [place] [address] #### 6793-4 #### [facility] ([id number]) [address], [address] [place] [address] W.B.CELLS 3 /hpf Normal 0-5 [facility] Comment on above: Performed By: #### B MP, CBC #### [facility] ([id number]) [address] [place] [address] #### 6793-4 #### [facility] ([id number]) [address] [address], [address] [place] [address] Urinalysison 12-06-2023 Bilirubin Ql (U) Negative Negative^N egative [facility] Color (U) YELLOW YELLOW^YEL LOW [facility] Epithelial cells Auto (Urine sed) [#/Area] 1 [facility] Epithelial cells.non-squamous LM.LPF (Urine sed) [#/Area] 1 High 0 /hpf [facility] Glucose (U) [Mass/Vol] Negative Negat hallie^N egative mg/dL [facility] Hemoglobin Auto test strip Ql (U) Negative Negative^N egative [facility] Interpretation and review of laboratory results Abnormal [facility] Ketones (U) [Mass/Vol] Negative Negat hallie^N egative mg/dL [facility] Leukocyte esterase Auto test strip Ql (U) Trace Abnormal Negative^N egative [facility] Nitrite Auto test strip Ql (U) Negative Negative^N egative [facility] pH (U) 6.5 [pH] 5.0 - 8.5 [facility] Protein (U) [Mass/Vol] Negative Negat hallie^N egative mg/dL [facility] RBC Auto (Urine sed) [#/Area] 1 [facility] Specific gravity Refractometry automated (U) [Rel density] 1.010 1.003 - 1.035 [facility] Turbidity Ql (U) CLEAR CLEAR^TWIN R [facility] Urobilinogen Qn (U) 0.2 NINF [facility] WBC Auto (Urine sed) [#/Area] 3 [facility] BLOOD CULTUREon 12-05-2023 Bacteria identified Aer cx Nom (Bld) CULTURE RESULTS NO GROWTH 5 DAYS Normal [facility] Bacteria identified Aer cx Nom (Bld) CULTURE RESULTS NO GROWTH 5 DAYS Normal [facility] CBC AND AUTO DIFFon 12-05-19 ABSOLUTE BASOPHIL 0.0 X10E9/L Normal 0.0-0.2 [facility] Comment on above: Performed By: #### C LUCIA [facility], , 2776-03 ####[facility] ([id number])[address] [place] [address] ABSOLUTE NEUTROPHIL 2.6 X10E9/L Normal 1.5-6.6 [facility] Comment on above: Performed By: #### C LUCIA, [facility], , 2776-03 ####[facility] ([id number])[address] [place] [address] Basophils/100 WBC (Bld) 0.7 % Normal [facility] Comment on above: Performed By: #### C BCA, [facility], , 2776-03 ####[facility] ([id number])[address] [place] [address] Eosinophils (Bld) [#/Vol] 0.3 10*3/uL Normal 0.0-0.4 [facility] Comment on above: Performed By: #### C BCA, CMP, , 2776-03 ####[facility] ([id number])[address] [place] [address] Eosinophils/100 WBC (Bld) 8.8 % Normal [facility] Comment on above: Performed By: #### C BCA, CMP, , 2776-03 ####[facility] ([id number])[address] [place] [address] Erythrocyte distribution width (RBC) [Ratio] 13.8 % Normal 11.5-15.0 [facility] Comment on above: Performed By: #### C LUCIA [facility], , 2776-03 ####[facility] ([id number])[address] [place] [address] Hematocrit (Bld) [Volume fraction] 22.2 % Low 35-47 [facility] Comment on above: Performed By: #### C LUCIA, [facility], , 2776-03 ####[facility] ([id number])[address] [facility] [place] [address] Hemoglobin (Bld) [Mass/Vol] 7.6 g/dL Low 11.7-15.5 [facility] Comment on above: Performed By: #### Jamal MYERS [facility], , 2776-03 ####[facility] ([id number])[address] [facility] [place] [address] Lymphocytes (Bld) [#/Vol] 0.5 10*3/uL Low 1.0-3.5 [facility] Comment on above: Performed By: #### C LUCIA [facility], , 2776-03 ####[facility] ([id number])[address] [place] [address] Lymphocytes/100 WBC (Bld) 11.8 % Normal [facility] Comment on above: Performed By: #### C LUCIA [facility], , 2776-03 ####[facility] ([id number])[address] [facility] [place] [address] MCH (RBC) [Entitic mass] 30.5 pg Normal 27-34 [facility] Comment on above: Performed By: #### C LUCIA, CMP, , 2776-03 ####[facility] ([id number])[address] [place] [address] MCHC (RBC) [Mass/Vol] 34.4 g/dL Normal 32-36 [facility] Comment on above: Performed By: #### C BCA, CMP, , 2776-03 ####[facility] ([id number])[address] [place] [address] MCV (RBC) [Entitic vol] 89 fL Normal 80-100 [facility] Comment on above: Performed By: #### C BCA, CMP, , 2776-03 ####[facility] ([id number])[address] [facility] [place] [address] Monocytes (Bld) [#/Vol] 0.5 10*3/uL Normal 0-0.9 [facility] Comment on above: Performed By: #### C BCA, CMP, , 2776-03 ####[facility] ([id number])[address] [facility] [place] [address] Monocytes/100 WBC (Bld) 11.8 % Normal [facility] Comment on above: Performed By: #### C BCA, CMP, , 2776-03 ####[facility] ([id number])[address] [facility] [place] [address] Neutrophils/100 WBC (Bld) 66.9 % Normal [facility] Comment on above: Performed By: #### C BCA, CMP, , 2776-03 ####[facility] ([id number])[address] [place] [address] Platelet mean volume (Bld) [Entitic vol] 6.4 fL Low 7-12 [facility] Comment on above: Performed By: #### C BCA, CMP, , 2776-03 ####[facility] ([id number])[address] [place] [address] Platelets (Bld) [#/Vol] 195 10*3/uL Normal 150-450 [facility] Comment on above: Performed By: #### C BCA, CMP, , 2776-03 ####[facility] ([id number])[address] [place] [address] RBC COUNT 2.50 X10E12/L Low 3.80-5.20 [facility] Comment on above: Performed By: #### C BCA, [facility], [address]-1, 277-1 ####[facility] ([id number])[address] [place] [address] WBC (Bld) [#/Vol] 3.9 10*3/uL Low 4.0-11.0 [facility] Comment on above: Performed By: #### C BCA, [facility], , 277-1 ####[facility] ([id number])[address] [place] [address] CBC auto differentialon Basophils (Bld) [#/Vol] 0.0 10*3/uL [facility] Basophils/100 WBC (Bld) 0.7 % [facility] Eosinophils (Bld) [#/Vol] 0.3 10*3/uL [facility] Eosinophils/100 WBC (Bld) 8.8 % [facility] Erythrocyte distribution width (RBC) [Ratio] 13.8 % 11.5 - 15.0 % [facility] Hematocrit (Bld) [Volume fraction] 22.2 % Low 35 - 47 % [facility] Hemoglobin (Bld) [Mass/Vol] 7.6 g/dL Low 11.7 - 15.5 g/dL [facility] Interpretation and review of laboratory results Abnormal [facility] Lymphocytes (Bld) [#/Vol] 0.5 10*3/uL Low [facility] Lymphocytes/100 WBC (Bld) 11.8 % [facility] MCH (RBC) [Entitic mass] 30.5 pg 27 - 34 pg [facility] MCHC (RBC) [Mass/Vol] 34.4 g/dL 32 - 3 6 g/dL [facility] MCV (RBC) [Entitic vol] 89 fL 80 - 100 fL [facility] Monocytes (Bld) [#/Vol] 0.5 10*3/uL [facility] Monocytes/100 WBC (Bld) 11.8 % [facility] Neutrophils (Bld) [#/Vol] 2.6 10*3/uL [facility] Neutrophils/100 WBC (Bld) 66.9 % [facility] Platelet mean volume (Bld) [Entitic vol] 6.4 fL Low 7 - 12 fL [facility] Platelets (Bld) [#/Vol] 195 10*3/uL [facility] RBC (Bld) [#/Vol] 2.50 10*6/uL Low [facility] WBC corrected for nucl RBC Auto (Bld) [#/Vol] 3.9 Low [facility] COMPREHENSIVE METABOLIC PANE [place] 12-05-2023 Albumin [Mass/Vol] 3.2 g/dL Normal 3.2-5.3 [facility] Comment on above: Performed By: #### C BCA, CMP, 2776-03 ####[facility] ([id number])[address] [place] [address] ALP [Catalytic activity/Vol] 58 U/L Normal 39-130 [facility] Comment on above: Performed By: #### C BCA, CMP, , 2776-03 ####[facility] ([id number])[address] [place] [address] ALT [Catalytic activity/Vol] 9 U/L Normal 0-31 [facility] Comment on above: Performed By: #### C BCA, CMP, , 2776-03 ####[facility] ([id number])[address] [place] [address] Anion gap [Moles/Vol] 8 mmol/L Normal 5-15 [facility] Comment on above: Performed By: #### C BCA, CMP, , 2776-03 ####[facility] ([id number])[address] [place] [address] AST [Catalytic activity/Vol] 15 U/L Normal 0-41 [facility] Comment on above: Performed By: #### C BCA, CMP, 2776-03 ####[facility] ([id number])[address] [place] [address] Bilirubin [Mass/Vol] 0.4 mg/dL Normal 0.3-1.2 [facility] Comment on above: Performed By: #### C BCA, CMP, , 2776-03 ####[facility] ([id number])[address] [facility] [place] [address] Calcium [Mass/Vol] 9.4 mg/dL Normal 8.5-10.5 [facility] Comment on above: Performed By: #### C BCA, CMP, , 2776-03 ####[facility] ([id number])[address] [facility] [place] [address] Chloride [Moles/Vol] 105 mmol/L Normal 98-109 [facility] Comment on above: Performed By: #### C BCA, CMP, , 2776-03 ####[facility] ([id number])[address] [facility] [place] [address] CO2 [Moles/Vol] 26 mmol/L Normal 22-32 [facility] Comment on above: Performed By: #### C BCA, CMP, 2776-03 ####[facility] ([id number])[address] [facility] [place] [address] Creatinine [Mass/Vol] 2.61 mg/dL High 0.40-1.00 [facility] Comment on above: Result Comment: METH OD TRACEABLE TO IDMS STANDARD Performed By: #### C BCA, CMP, 2776-03 ####[facility] ([id number])[address] [facility] [place] [address] GFR/1.73 sq M.predicted among non-blacks MDRD (S/P/Bld) [Vol rate/Area] 21 mL/min/{1.73_m2} Low >59 [facility] Comment on above: Result Comment: Reported eGFR is based on the CKD-EPI 2020 equation that does not use a race coefficient. Performed By: #### C BCA, CMP, , 2776-03 ####[facility] ([id number])[address] [place] [address] Glucose [Mass/Vol] 95 mg/dL Normal 65-99 [facility] Comment on above: Performed By: #### C BCA, CMP, , 2776-03 ####[facility] ([id number])[address] [place] [address] Potassium [Moles/Vol] 3.6 mmol/L Normal 3.5-5.0 [facility] Comment on above: Performed By: #### C BCA, CMP, , 2776-03 ####[facility] ([id number])[address] [place] [address] Protein [Mass/Vol] 5.6 g/dL Low 6.0-8.0 [facility] Comment on above: Performed By: #### C BCA, CMP, , 2776-03 ####[facility] ([id number])[address] [place] [address] Sodium [Moles/Vol] 139 mmol/L Normal 134-146 [facility] Comment on above: Performed By: #### C BCA, CMP, , 2776-03 ####[facility] ([id number])[address] [place] [address] Urea nitrogen [Mass/Vol] 19 mg/dL Normal 5-23 [facility] Comment on above: Performed By: #### C BCA, CMP, , 2776-03 ####[facility] ([id number])[address] [place] [address] Cobalamin (Vitamin B12) [Mas s/Vol]on 12-05-2023 [facility] Comprehensive metabolic pane rome 12-05-2023 Albumin [Mass/Vol] 3.2 g/dL 3.2 - 5.3 g/dL [facility] ALP [Catalytic activity/Vol] 58 U/L 39 - 130 U/L [facility] ALT No additional P-5'-P [Catalytic activity/Vol] 9 U/L 0 - 31 U/L [facility] Anion gap [Moles/Vol] 8 mmol/L 5 - 15 mmol/L [facility] AST [Catalytic activity/Vol] 15 U/L 0 - 41 U/L [facility] Bilirubin [Mass/Vol] 0.4 mg/dL 0.3 - 1 .2 mg/dL [facility] Calcium [Mass/Vol] 9.4 mg/dL 8.5 - 10. 5 mg/dL [facility] Chloride [Moles/Vol] 105 mmol/L 98 - 10 9 mmol/L [facility] CO2 [Moles/Vol] 26 mmol/L 22 - 32 mmol/L [facility] Creatinine [Mass/Vol] 2.61 mg/dL High 0.40 - 1.00 mg/dL [facility] Comment on above: METHOD TRACEABLE TO [facility] STANDARD eGFR (CKD-EPI)non-race dependent 21 Low - PINF [facility] Comment on above: Reported eGFR is based on the CKD-EPI 2020 equation that does not use a race coefficient. Glucose [Mass/Vol] 95 mg/dL 65 - 99 mg/dL [facility] Potassium [Moles/Vol] 3.6 mmol/L 3.5 - 5.0 mmol/L [facility] Protein [Mass/Vol] 5.6 g/dL Low 6.0 - 8.0 g/dL [facility] Sodium [Moles/Vol] 139 mmol/L 134 - 146 mmol/L [facility] Urea nitrogen [Mass/Vol] 19 mg/dL 5 - 23 mg/dL [facility] Folateon 12-05-2023 Folate [Mass/Vol] 9.7 ng/mL 5.8 - PINF ng/mL [facility] Comment on above: NEW REFERENCE RANGE Folate [Mass/Vol]on 12-05-19 [facility] Iron and TIBCon 12-05-2023 Interpretation and review of laboratory results Abnormal [facility] Iron [Mass/Vol] ug/dL Low 50 - 170 ug/dL [facility] Iron binding capacity [Mass/Vol] 272 ug/dL 250 - 425 ug/dL [facility] Iron saturation [Mass fraction] Low [facility] MAGNESIUMon 12-05-2023 Magnesium [Mass/Vol] 1.8 mg/dL Normal 1.8-2.6 [facility] Comment on above: Performed By: #### B MP, CBC #### [facility] ([id number]) [address] [place] [address] #### [id number] #### [facility] ([id number]) [address] [facility], [address] [place] [address] Magnesium [Mass/Vol] 1.5 mg/dL Low 1.8-2.6 [facility] Comment on above: Performed By: #### C BCA, CMP, 09649-6, 2777-1 ####[facility] ([id number])[address] [place] [address] Magnesiumon 12-05-2023 Magnesium [Mass/Vol] 1.8 mg/dL 1.8 - 2 .6 mg/dL [facility] Magnesium [Mass/Vol] 1.5 mg/dL Low 1.8 - 2 .6 mg/dL [facility] No Panel Informationon 12-04 [facility] Interpretation and review of laboratory results Abnormal [facility] PHOSPHORUSon 12-05-2023 Phosphate [Mass/Vol] 4.1 mg/dL Normal 2.4-4.9 [facility] Comment on above: Performed By: #### B MP, CBC #### [facility] ([id number]) [address] [place] [address] #### [id number] #### [facility] ([id number]) [address] [facility], [address] [place] [address] POTASSIUMon 12-05-2023 Potassium [Moles/Vol] 3.6 mmol/L Normal 3.5-5.0 [facility] Comment on above: Performed By: #### B MP, CBC #### [facility] ([id number]) [address] [place] [id number] #### [id number] #### [facility] ([id number]) [address] [facility], [address] [place] [address] Phosphoruson 12-05-2023 Phosphate [Mass/Vol] 4.1 mg/dL 2.4 - 4 .9 mg/dL [facility] Potassiumon 12-05-2023 Potassium [Moles/Vol] 3.6 mmol/L 3.5 - 5.0 mmol/L [facility] RESP PATHOGENS/[id number]-[id number] 12-05-2023 Respiratory pathogens DNA and RNA panel [...] other pathogens. The agent(s) detected by the [employer] RP2.1 may not be the definite cause [...] patient with possible respiratory tract infection. Normal [facility] Comment on above: Performed By: #### B MP, CBC #### [facility] ([id number]) [address] [place] [address] #### [id number] #### [facility] ([id number]) [address] [place] [address] [address] [place] [address] Respiratory pathogens DNA an d RNA panel KYLE+non-probe (Nph)on 12-05-2023 Adenovirus DNA KYLE+non-probe Ql (Nph) Not detected Not Detected^N ot Detected [facility] B. parapertussis [id number] DNA KYLE+non-probe Ql (Nph) Not detected Not Detected^N ot Detected [facility] B. pertussis toxin promoter region KYLE+non-probe Ql (Nph) Not detected Not Detected^N ot Detected [facility] C. pneumoniae DNA KYLE+non-probe Ql (Nph) Not detected Not Detected^N ot Detected [facility] FLUAV RNA KYLE+non-probe Ql (Nph) Not detected Not Detected^N ot Detected [facility] FLUBV RNA KYLE+non-probe Ql (Nph) Not detected Not Detected^N ot Detected [facility] HCoV 229E RNA KYLE+non-probe Ql (Nph) Not detected Not Detected^N ot Detected [facility] HCoV HKU1 RNA KYLE+non-probe Ql (Nph) Not detected Not Detected^N ot Detected [facility] HCoV NL63 RNA KYLE+non-probe Ql (Nph) Not detected Not Detected^N ot Detected [facility] HCoV OC43 RNA KYLE+non-probe Ql (Nph) Not detected Not Detected^N ot Detected [facility] hMPV RNA KYLE+non-probe Ql (Nph) Not detected Not Detected^N ot Detected [facility] M. pneumoniae DNA KYLE+non-probe Ql (Nph) Not detected Not Detected^N ot Detected [facility] Parainfluenza virus 1 RNA KYLE+non-probe Ql (Nph) Not detected Not Detected^N ot Detected [facility] Parainfluenza virus 2 RNA KYLE+non-probe Ql (Nph) Not detected Not Detected^N ot Detected [facility] Parainfluenza virus 3 RNA KYLE+non-probe Ql (Nph) Not detected Not Detected^N ot Detected [facility] Parainfluenza virus 4 RNA KYLE+non-probe Ql (Nph) Not detected Not Detected^N ot Detected [facility] Rhinovirus+Enterovirus RNA KYLE+non-probe Ql (Nph) Not detected Not Detected^N ot Detected [facility] RSV RNA KYLE+non-probe Ql (Nph) Not detected Not Detected^N ot Detected [facility] SARS-CoV-2 (COVID-19) RNA KYLE+probe Ql (Resp) Not detected Not Detected^N ot Detected [facility] Comment on above: NOTE The [employer] Respiratory Panel 2.1 (RP2.1) [...] other pathogens. The agent(s) detected by the [employer] RP2.1 may not be the definite cause [...] Specimen source Nom (Body fld) NASO PHARYNX [facility] Vitamin B12on 12-05-2023 Cobalamin (Vitamin B12) [Mass/Vol] 185 pg/mL 180 - 914 pg/mL [facility] XR CHEST 1 VWon 12-05-2023 XR CHEST 1 VW XR CHEST 1 VW Clinical history: Fever Views: 1 Comparison: None Findings/Impression: 1. Heart size stable. No focal infiltrate or volume loss. No pneumothorax. 2. Scoliosis. 3. No pneumothorax nor large effusion. 4. In summary findings most consistent with mild vascular congestion.. Finalized by Brice Sanders MD on 12/05/2023 12:16 PM Normal [facility] XR Chest Single viewon 12-04 Clinical [...] Brice Sanders MD on 12/05/2023 12:16 PM [facility] Reviews & [facility] Radiology Study observation (narrative) [facility]i XR Chest Single viewOrdered By: Brice Sanders on 12-05-2023 [facility] Work Phone: Bacteria identified Cx Nom ( U)on 12-04-2023 Service comment (Unsp spec) [Interp] NO GROWTH AT <1000 CFU/mL [facility] CBC AND AUTO DIFFon 12-04-19 24 ABSOLUTE BASOPHIL 0.0 X10E9/L Normal 0.0-0.2 [facility] Comment on above: Performed By: #### 2 823-3 #### [facility] ([id number]) [address] [place] [address] ABSOLUTE NEUTROPHIL 3.1 X10E9/L Normal 1.5-6.6 [facility] Comment on above: Performed By: #### 2 823-3 #### [facility] ([id number]) [address] [place] [address] Basophils/100 WBC (Bld) 0.3 % Normal [facility] Comment on above: Performed By: #### 2 823-3 #### [facility] ([id number]) [address] [place] [address] Eosinophils (Bld) [#/Vol] 0.4 10*3/uL Normal 0.0-0.4 [facility] Comment on above: Performed By: #### 2 823-3 #### [facility] ([id number]) [address] [place] [address] Eosinophils/100 WBC (Bld) 8.5 % Normal [facility] Comment on above: Performed By: #### 2 823-3 #### [facility] ([id number]) [address] [place] [address] Erythrocyte distribution width (RBC) [Ratio] 14.0 % Normal 11.5-15.0 [facility] Comment on above: Performed By: #### 2 823-3 #### [facility] ([id number]) [address] [place] [address] Hematocrit (Bld) [Volume fraction] 21.2 % Low 35-47 [facility] Comment on above: Performed By: #### 2 823-3 #### [facility] ([id number]) [address] [place] [address] Hemoglobin (Bld) [Mass/Vol] 7.3 g/dL Low 11.7-15.5 [facility] Comment on above: Performed By: #### 2 823-3 #### [facility] ([id number]) [address] [place] [address] Lymphocytes (Bld) [#/Vol] 0.4 10*3/uL Low 1.0-3.5 [facility] Comment on above: Performed By: #### 2 823-3 #### [facility] ([id number]) [address] [place] [address] Lymphocytes/100 WBC (Bld) 10.0 % Normal [facility] Comment on above: Performed By: #### 2 823-3 #### [facility] ([id number]) [address] [place] [address] MCH (RBC) [Entitic mass] 30.7 pg Normal 27-34 [facility] Comment on above: Performed By: #### 2 823-3 #### [facility] ([id number]) [address] [place], [place] [address] [address] MCHC (RBC) [Mass/Vol] 34.3 g/dL Normal 32-36 [facility] Comment on above: Performed By: #### 2 823-3 #### [facility] ([id number]) [address] [place] [address] MCV (RBC) [Entitic vol] 90 fL Normal 80-100 [facility] Comment on above: Performed By: #### 2 823-3 #### [facility] ([id number]) [address] [place] [address] Monocytes (Bld) [#/Vol] 0.5 10*3/uL Normal 0-0.9 [facility] Comment on above: Performed By: #### 2 823-3 #### [facility] ([id number]) [address] [place] [address] Monocytes/100 WBC (Bld) 10.6 % Normal [facility] Comment on above: Performed By: #### 2 823-3 #### [facility] ([id number]) [address] [place] [address] Neutrophils/100 WBC (Bld) 70.6 % Normal [facility] Comment on above: Performed By: #### 2 823-3 #### [facility] ([id number]) [address] [place] [address] Platelet mean volume (Bld) [Entitic vol] 6.4 fL Low 7-12 [facility] Comment on above: Performed By: #### 2 823-3 #### [facility] ([id number]) [address] [place] [address] Platelets (Bld) [#/Vol] 201 10*3/uL Normal 150-450 [facility] Comment on above: Performed By: #### 2 823-3 #### [facility] ([id number]) [address] [place] [address] RBC COUNT 2.37 X10E12/L Low 3.80-5.20 [facility] Comment on above: Performed By: #### 2 823-3 #### [facility] ([id number]) [address] [place] [address] WBC (Bld) [#/Vol] 4.3 10*3/uL Normal 4.0-11.0 [facility] Comment on above: Performed By: #### 2 823-3 #### [facility] ([id number]) [facility] [place] [address] CBC auto differentialon Basophils (Bld) [#/Vol] 0.0 10*3/uL [facility] Basophils/100 WBC (Bld) 0.3 % [facility] Eosinophils (Bld) [#/Vol] 0.4 10*3/uL [facility] Eosinophils/100 WBC (Bld) 8.5 % [facility] Erythrocyte distribution width (RBC) [Ratio] 14.0 % 11.5 - 15.0 % [facility] Hematocrit (Bld) [Volume fraction] 21.2 % Low 35 - 47 % [facility] Hemoglobin (Bld) [Mass/Vol] 7.3 g/dL Low 11.7 - 15.5 g/dL [facility] Interpretation and review of laboratory results Abnormal [facility] Lymphocytes (Bld) [#/Vol] 0.4 10*3/uL Low [facility] Lymphocytes/100 WBC (Bld) 10.0 % [facility] MCH (RBC) [Entitic mass] 30.7 pg 27 - 34 pg [facility] MCHC (RBC) [Mass/Vol] 34.3 g/dL 32 - 3 6 g/dL [facility] MCV (RBC) [Entitic vol] 90 fL 80 - 100 fL [facility] Monocytes (Bld) [#/Vol] 0.5 10*3/uL [facility] Monocytes/100 WBC (Bld) 10.6 % [facility] Neutrophils (Bld) [#/Vol] 3.1 10*3/uL [facility] Neutrophils/100 WBC (Bld) 70.6 % [facility] Platelet mean volume (Bld) [Entitic vol] 6.4 fL Low 7 - 12 fL [facility] Platelets (Bld) [#/Vol] 201 10*3/uL [facility] RBC (Bld) [#/Vol] 2.37 10*6/uL Low [facility] WBC corrected for nucl RBC Auto (Bld) [#/Vol] 4.3 [facility] COMPREHENSIVE METABOLIC PANE [place] 12-04-2023 Albumin [Mass/Vol] 3.2 g/dL Normal 3.2-5.3 [facility] Comment on above: Performed By: #### 2 823-3 #### [facility] ([id number]) [address] [place] [address] ALP [Catalytic activity/Vol] 56 U/L Normal 39-130 [facility] Comment on above: Performed By: #### 2 823-3 #### [facility] ([id number]) [address] [place] [address] ALT [Catalytic activity/Vol] 9 U/L Normal 0-31 [facility] Comment on above: Performed By: #### 2 823-3 #### [facility] ([id number]) [address] [place] [address] Anion gap [Moles/Vol] 6 mmol/L Normal 5-15 [facility] Comment on above: Performed By: #### 2 823-3 #### [facility] ([id number]) [address] [place] [address] AST [Catalytic activity/Vol] 15 U/L Normal 0-41 [facility] Comment on above: Performed By: #### 2 823-3 #### [facility] ([id number]) [address] [place] [address] Bilirubin [Mass/Vol] 0.5 mg/dL Normal 0.3-1.2 [facility] Comment on above: Performed By: #### 2 823-3 #### [facility] ([id number]) [address] [place] [address] Calcium [Mass/Vol] 9.2 mg/dL Normal 8.5-10.5 [facility] Comment on above: Performed By: #### 2 823-3 #### [facility] ([id number]) [address] [place] [address] Chloride [Moles/Vol] 107 mmol/L Normal 98-109 [facility] Comment on above: Performed By: #### 2 823-3 #### [facility] ([id number]) [address] [facility] [address] CO2 [Moles/Vol] 25 mmol/L Normal 22-32 [facility] Comment on above: Performed By: #### 2 823-3 #### [facility] ([id number]) [address] [facility] [address] Creatinine [Mass/Vol] 2.81 mg/dL High 0.40-1.00 [facility] Comment on above: Result Comment: METH OD TRACEABLE TO IDMS STANDARD Performed By: #### 2 823-3 #### [facility] ([id number]) [address] [place] [address] GFR/1.73 sq M.predicted among non-blacks MDRD (S/P/Bld) [Vol rate/Area] 19 mL/min/{1.73_m2} Low >59 [facility] Comment on above: Result Comment: Reported eGFR is based on the CKD-EPI 1 equation that does not use a race coefficient. Performed By: #### 2 823-3 #### [facility] ([id number]) [address] [place] [address] Glucose [Mass/Vol] 91 mg/dL Normal 65-99 [facility] Comment on above: Performed By: #### 2 823-3 #### [facility] ([id number]) [address] [place] [address] Potassium [Moles/Vol] 3.4 mmol/L Low 3.5-5.0 [facility] Comment on above: Performed By: #### 2 823-3 #### [facility] ([id number]) [address] [place] [address] Protein [Mass/Vol] 5.4 g/dL Low 6.0-8.0 [facility] Comment on above: Performed By: #### 2 823-3 #### [facility] ([id number]) [address] [place] [address] Sodium [Moles/Vol] 138 mmol/L Normal 134-146 [facility] Comment on above: Performed By: #### 2 823-3 #### [facility] ([id number]) [address] [place] [address] Urea nitrogen [Mass/Vol] 24 mg/dL High 5-23 [facility] Comment on above: Performed By: #### 2 823-3 #### [facility] ([id number]) [address] [place] [address] Calcium.ionized (Bld) [Mass/ Vol]on 12-04-2023 [facility] IONIZED CALCIUM 5.0 mg/dL Normal 4.5-5.3 [facility] Comment on above: Performed By: #### 2 823-3 #### [facility] ([id number]) [address] [place] [address] Comprehensive metabolic pane rome 12-04-2023 Albumin [Mass/Vol] 3.2 g/dL 3.2 - 5.3 g/dL [facility] ALP [Catalytic activity/Vol] 56 U/L 39 - 130 U/L [facility] ALT No additional P-5'-P [Catalytic activity/Vol] 9 U/L 0 - 31 U/L [facility] Anion gap [Moles/Vol] 6 mmol/L 5 - 15 mmol/L [facility] AST [Catalytic activity/Vol] 15 U/L 0 - 41 U/L [facility] Bilirubin [Mass/Vol] 0.5 mg/dL 0.3 - 1 .2 mg/dL [facility] Calcium [Mass/Vol] 9.2 mg/dL 8.5 - 10. 5 mg/dL [facility] Chloride [Moles/Vol] 107 mmol/L 98 - 10 9 mmol/L [facility] CO2 [Moles/Vol] 25 mmol/L 22 - 32 mmol/L [facility] Creatinine [Mass/Vol] 2.81 mg/dL High 0.40 - 1.00 mg/dL [facility] Comment on above: METHOD TRACEABLE TO [facility] STANDARD eGFR (CKD-EPI)non-race dependent 19 Low - PINF [facility] Comment on above: Reported eGFR is based on the CKD-EPI 2020 equation that does not use a race coefficient. Glucose [Mass/Vol] 91 mg/dL 65 - 99 mg/dL [facility] Interpretation and review of laboratory results Abnormal [facility] Potassium [Moles/Vol] 3.4 mmol/L Low 3.5 - 5.0 mmol/L [facility] Protein [Mass/Vol] 5.4 g/dL Low 6.0 - 8.0 g/dL [facility] Sodium [Moles/Vol] 138 mmol/L 134 - 146 mmol/L [facility] Urea nitrogen [Mass/Vol] 24 mg/dL High 5 - 23 mg/dL [facility] Folate [Mass/Vol]on 12-04-19 24 FOLIC ACID 9.7 ng/mL Normal >5.8 [facility] Comment on above: Result Comment: NEW REFERENCE RANGE Performed By: #### 2 823-3 ####[facility] ([id number])[address] [place] [address]#### 2284-8, 2131-9, FEPR ####[facility] ([id number])[address] [facility], [address], [place] [address] IRON PROFILEon 12-04-2023 Iron [Mass/Vol] ug/dL Low 50-170 [facility] Comment on above: Performed By: #### 2 823-3 ####[facility] ([id number])[address] [place] [address]#### 2284-8, 9, FEPR ####[facility] ([id number])[address] [facility], [address] [place] [address] IRON BINDING 272 ug/dL Normal 250-425 [facility] Comment on above: Performed By: #### 2 823-3 ####[facility] ([id number])[address] [place] [address]#### 2284-8, 2131-11, FEPR ####[facility] ([id number])[address] [facility], [address] [place] [address] IRON SATURATION <4 Low 15-50 [facility] Comment on above: Performed By: #### 2 823-3 ####[facility] ([id number])[address] [place] [address]#### 2284-8, 2131-11, FEPR ####[facility] ([id number])[address] [facility], [address] [address] Ionized calciumon 12-04-2023 Calcium.ionized (Bld) [Mass/Vol] 5.0 mg/dL 4.5 - 5.3 mg/dL [facility] MAGNESIUMon 12-04-2023 Magnesium [Mass/Vol] 1.9 mg/dL Normal 1.8-2.6 [facility] Comment on above: Performed By: #### 2 823-3 #### [facility] ([id number]) [address] [place] [address] Magnesiumon 12-04-2023 Magnesium [Mass/Vol] 1.9 mg/dL 1.8 - 2 .6 mg/dL [facility] No Panel Informationon 12-03 [facility] PHOSPHORUSon 12-04-2023 Phosphate [Mass/Vol] 3.9 mg/dL Normal 2.4-4.9 [facility] Comment on above: Performed By: #### 2 823-3 #### [facility] ([id number]) [address] [place] [address] POTASSIUMon 12-04-2023 Potassium [Moles/Vol] 3.7 mmol/L Normal 3.5-5.0 [facility] Comment on above: Performed By: #### 2 823-3 ####[facility] ([id number])[address] [place] [address]#### 2284-8, 9, FEPR ####[facility] ([id number])[address] [facility], [address], [place] [address] Phosphoruson 12-04-2023 Phosphate [Mass/Vol] 3.9 mg/dL 2.4 - 4 .9 mg/dL [facility] Potassiumon 12-04-2023 Potassium [Moles/Vol] 3.7 mmol/L 3.5 - 5.0 mmol/L [facility] Potassium [Moles/Vol]on [facility] Protein electrophoresis, ser umon 12-04-2023 Albumin [Mass/Vol] 3.1 g/dL Low 3.4 - 5.3 g/dL [facility] Alpha 1 globulin Elph [Mass/Vol] 0.4 g/dL 0.1 - 0.4 g/dL [facility] Alpha 2 globulin Elph [Mass/Vol] 0.7 g/dL 0.4 - 1.1 g/dL [facility] Beta globulin Elph [Mass/Vol] 0.7 g/dL 0.5 - 1.2 g/dL [facility] Gamma globulin Elph [Mass/Vol] 0.6 g/dL 0.5 - 1.6 g/dL [facility] Interpretation and review of laboratory results Abnormal [facility] Pathologist interpretation (Bld) [Interp] Unremarkable protein distribution, no monoclonal bands. [facility] Protein [Mass/Vol] 5.4 g/dL Low 6.0 - 8.0 g/dL [facility] US RETROPERITONEAL COMPLETEo n 12-04-2023 US RETROPERITONEAL [...] Jack MD on 12/04/2023 9:23 AM Normal [facility] US Retroperitoneumon ULTRASOUND RETROPERITONEUM INDICATION: Acute renal injury. COMPARISON: [...] Jesus Jack MD on 12/04/2023 9:23 AM [facility] Jesus Jack MD - 12/04/2023 ULTRASOUND RETROPERITONEUM [...] Jesus Jack MD on 12/04/2023 9:23 AM [facility] Radiology Study observation (narrative) [facility] US RetroperitoneumOrdered By : Jesus Jack on 12-04-2023 [employer] Work Phone: VITAMIN B12on 12-04-2023 Cobalamin (Vitamin B12) [Mass/Vol] 185 pg/mL Normal 180-914 [facility] Comment on above: Performed By: #### 2 823-3 ####[facility] ([id number])[address] [place] [address]#### 2284-8, 2132-9, FEPR ####[facility] ([id number])[address] [facility], [address], [place] [address] JUSTIN Screen w/ Reflexon 12-02 Nuclear Ab IA Ql (S) Negative Negativ e^N egative [facility] Comment on above: Testing performed using multiplex flow immunoassay. Eleven different antigens associated with systemic autoimmune diseases (dsDNA,Sm,Sm/PASTRY COOK HELPER,PASTRY COOK HELPER,Chromatin, SSA,SSB,Alice-1,Scl70,Ribo P,Centromere B) are included in this screening test. APTTon 12-03-2023 aPTT Coag (PPP) [Time] 35 s Pr [facility] Auto Diff (add on use only)o n 12-03-2023 Basophils (Bld) [#/Vol] 0.0 10*3/uL [facility] Basophils/100 WBC (Bld) 0.4 % P [facility] Eosinophils (Bld) [#/Vol] 0.3 10*3/uL [facility] Eosinophils/100 WBC (Bld) 6.0 % [facility] Lymphocytes (Bld) [#/Vol] 0.6 10*3/uL Low [facility] Lymphocytes/100 WBC (Bld) 10.9 % [facility] Monocytes (Bld) [#/Vol] 0.5 10*3/uL [facility] Monocytes/100 WBC (Bld) 9.4 % P [facility] Neutrophils (Bld) [#/Vol] 4.2 10*3/uL [facility] Neutrophils/100 WBC (Bld) 73.3 % [facility] CBC without diffon Erythrocyte distribution width (RBC) [Ratio] 14.2 % 11.5 - 15.0 % [facility] Hematocrit (Bld) [Volume fraction] 22.9 % Low 35 - 47 % [facility] Hemoglobin (Bld) [Mass/Vol] 8.0 g/dL Low 11.7 - 15.5 g/dL [facility] MCH (RBC) [Entitic mass] 31.3 pg 27 - 34 pg [facility] MCHC (RBC) [Mass/Vol] 34.9 g/dL 32 - 3 6 g/dL [facility] MCV (RBC) [Entitic vol] 90 fL 80 - 100 fL [facility] Platelet mean volume (Bld) [Entitic vol] 6.5 fL Low 7 - 12 fL [facility] Platelets (Bld) [#/Vol] 233 10*3/uL [facility] RBC (Bld) [#/Vol] 2.55 10*6/uL Low [facility] WBC corrected for nucl RBC Auto (Bld) [#/Vol] 5.8 [facility] CK Totalon 12-03-2023 CK [Catalytic activity/Vol] 52 U/L 24 - 170 U/L [facility] CK [Catalytic activity/Vol]o n 12-03-2023 [facility] CPK 52 U/L Normal 24-170 [facility] Comment on above: Performed By: #### 2 157-6 ####[facility] ([id number])[facility] [place] [address]#### C34, SPE, [id number], 29642-9, 6969-0, 6968-2 ####[facility] ([id number])[address] [facility], [address] [place] [address] COMPLEMENT PROFILEon 024 COMPLEMENT C3 158 mg/dL Normal 86-184 [facility] Comment on above: Performed By: #### 2 157-6 ####[facility] ([id number])5200 [place] [address]#### C34, SPE, [id number], 58550-6, 6969-0, 6968-2 ####[facility] ([id number])[address] [facility], [address] [address] COMPLEMENT C4 38 mg/dL Normal 16-47 [facility] Comment on above: Performed By: #### 2 157-6 ####[facility] ([id number])[address] [place] [address]#### C34, SPE, [id number], 49248-6, 6969-0, 6968-2 ####[facility] ([id number])[address] [facility], [address] [address] COMPLETE BLOOD COUNTon 12-02 Erythrocyte distribution width (RBC) [Ratio] 14.2 % Normal 11.5-15.0 [facility] Comment on above: Performed By: #### C BC, DIFFA, CMP, , ####[facility] ([id number])[address] [place] [address] Hematocrit (Bld) [Volume fraction] 22.9 % Low 35-47 [facility] Comment on above: Performed By: #### C BC, DIFFA, CMP, , ####[facility] ([id number])[address] [place] [address] Hemoglobin (Bld) [Mass/Vol] 8.0 g/dL Low 11.7-15.5 [facility] Comment on above: Performed By: #### C BC, DIFFA, CMP, , ####[facility] ([id number])[address] [place] [address] MCH (RBC) [Entitic mass] 31.3 pg Normal 27-34 [facility] Comment on above: Performed By: #### C BC, DIFFA, CMP, ####[facility] ([id number])[address] [place] [address] MCHC (RBC) [Mass/Vol] 34.9 g/dL Normal 32-36 [facility] Comment on above: Performed By: #### C BC, DIFFA, CMP, , ####[facility] ([id number])[address] [place] [address] MCV (RBC) [Entitic vol] 90 fL Normal 80-100 [facility] Comment on above: Performed By: #### C BC, DIFFA, CMP, , ####[facility] ([id number])5[address] [facility] [place] [address] Platelet mean volume (Bld) [Entitic vol] 6.5 fL Low 7-12 [facility] Comment on above: Performed By: #### C BC, DIFFA, CMP, , ####[facility] ([id number])5[address] [facility] [place] [address] Platelets (Bld) [#/Vol] 233 10*3/uL Normal 150-450 [facility] Comment on above: Performed By: #### C BC, DIFFA, CMP, ####[facility] ([id number])5[address] [facility] [place] [address] RBC COUNT 2.55 X10E12/L Low 3.80-5.20 [facility] Comment on above: Performed By: #### C BC, DIFFA, CMP, ####[facility] ([id number])[address] [facility] [place] [address] WBC (Bld) [#/Vol] 5.8 10*3/uL Normal 4.0-11.0 [facility] Comment on above: Performed By: #### C BC, DIFFA, CMP, , ####[facility] ([id number])[address] [place] [address] COMPREHENSIVE METABOLIC PANE [place] 12-03-2023 Albumin [Mass/Vol] 3.3 g/dL Normal 3.2-5.3 [facility] Comment on above: Performed By: #### C BC, DIFFA, CMP, ####[facility] ([id number])[address] [place] [address] ALP [Catalytic activity/Vol] 60 U/L Normal 39-130 [facility] Comment on above: Performed By: #### C BC, DIFFA, CMP, ####[facility] ([id number])[address] [place] [address] ALT [Catalytic activity/Vol] 10 U/L Normal 0-31 [facility] Comment on above: Performed By: #### C BC, DIFFA, CMP, ####[facility] ([id number])[address] [place] [address] Anion gap [Moles/Vol] 8 mmol/L Normal 5-15 [facility] Comment on above: Performed By: #### C BC, DIFFA, CMP, ####[facility] ([id number])[address] [place] [address] AST [Catalytic activity/Vol] 19 U/L Normal 0-41 [facility] Comment on above: Performed By: #### C BC, DIFFA, CMP, ####[facility] ([id number])[address] [place] [address] Bilirubin [Mass/Vol] 0.6 mg/dL Normal 0.3-1.2 [facility] Comment on above: Performed By: #### C BC, DIFFA, CMP, ####[facility] ([id number])[address] [place] [address] Calcium [Mass/Vol] 9.2 mg/dL Normal 8.5-10.5 [facility] Comment on above: Performed By: #### C BC, DIFFA, CMP, , ####[facility] ([id number])[address] [place] [address] Chloride [Moles/Vol] 104 mmol/L Normal 98-109 [facility] Comment on above: Performed By: #### C BC, DIFFA, CMP, , ####[facility] ([id number])[address] [place] [address] CO2 [Moles/Vol] 25 mmol/L Normal 22-32 [facility] Comment on above: Performed By: #### C BC, DIFFA, CMP, , ####[facility] ([id number])5[address] [facility] [place] [address] Creatinine [Mass/Vol] 2.49 mg/dL High 0.40-1.00 [facility] Comment on above: Result Comment: METH OD TRACEABLE TO IDMS STANDARD Performed By: #### C BC, DIFFA, CMP, , ####[facility] ([id number])5[address] [facility] [place] [address] GFR/1.73 sq M.predicted among non-blacks MDRD (S/P/Bld) [Vol rate/Area] 23 mL/min/{1.73_m2} Low >59 [facility] Comment on above: Result Comment: Reported eGFR is based on the CKD-EPI 2020 equation that does not use a race coefficient. Performed By: #### C BC, DIFFA, CMP, , ####[facility] ([id number])[address] [facility] [place] [address] Glucose [Mass/Vol] 103 mg/dL High 65-99 [facility] Comment on above: Performed By: #### C BC, DIFFA, CMP, , ####[facility] ([id number])5[address] [facility] [place] [address] Potassium [Moles/Vol] 3.1 mmol/L Low 3.5-5.0 [facility] Comment on above: Performed By: #### C BC, DIFFA, CMP, ####[facility] ([id number])[address] [place] [address] Protein [Mass/Vol] 5.5 g/dL Low 6.0-8.0 [facility] Comment on above: Performed By: #### C BC, DIFFA, CMP, , ####[facility] ([id number])5[address] [facility] [place] [address] Sodium [Moles/Vol] 137 mmol/L Normal 134-146 [facility] Comment on above: Performed By: #### C BC, DIFFA, CMP, ####[facility] ([id number])5[address] [facility] [place] [address] Urea nitrogen [Mass/Vol] 25 mg/dL High 5-23 [facility] Comment on above: Performed By: #### C BC, DIFFA, CMP, ####[facility] ([id number])5[address] [facility] [place] [address] Complement profile (C3 AND C 4)on 12-03-2023 Complement C3 [Mass/Vol] 158 mg/dL 86 - 184 mg/dL [facility] Complement C4 [Mass/Vol] 38 mg/dL 16 - 47 mg/dL [facility] Comprehensive metabolic pane rome 12-03-2023 Albumin [Mass/Vol] 3.3 g/dL 3.2 - 5.3 g/dL [facility] ALP [Catalytic activity/Vol] 60 U/L 39 - 130 U/L [facility] ALT No additional P-5'-P [Catalytic activity/Vol] 10 U/L 0 - 31 U/L [facility] Anion gap [Moles/Vol] 8 mmol/L 5 - 15 mmol/L [facility] AST [Catalytic activity/Vol] 19 U/L 0 - 41 U/L [facility] Bilirubin [Mass/Vol] 0.6 mg/dL 0.3 - 1 .2 mg/dL [facility] Calcium [Mass/Vol] 9.2 mg/dL 8.5 - 10. 5 mg/dL [facility] Chloride [Moles/Vol] 104 mmol/L 98 - 10 9 mmol/L [facility] CO2 [Moles/Vol] 25 mmol/L 22 - 32 mmol/L [facility] Creatinine [Mass/Vol] 2.49 mg/dL High 0.40 - 1.00 mg/dL [facility] Comment on above: METHOD TRACEABLE TO [facility] STANDARD eGFR (CKD-EPI)non-race dependent 23 Low - PINF [facility] Comment on above: Reported eGFR is based on the CKD-EPI 2020 equation that does not use a race coefficient. Glucose [Mass/Vol] 103 mg/dL High 65 - 99 mg/dL [facility] Potassium [Moles/Vol] 3.1 mmol/L Low 3.5 - 5.0 mmol/L [facility] Protein [Mass/Vol] 5.5 g/dL Low 6.0 - 8.0 g/dL [facility] Sodium [Moles/Vol] 137 mmol/L 134 - 146 mmol/L [facility] Urea nitrogen [Mass/Vol] 25 mg/dL High 5 - 23 mg/dL [facility] DIFFERENTIALon 12-03-2023 ABSOLUTE BASOPHIL 0.0 X10E9/L Normal 0.0-0.2 [facility] Comment on above: Performed By: #### C BC, DIFFA, [facility], ####[facility] ([id number])5200 [place] [address] ABSOLUTE NEUTROPHIL 4.2 X10E9/L Normal 1.5-6.6 [facility] Comment on above: Performed By: #### C BC, DIFFA, CMP, ####[facility] ([id number])5200 [place] [address] Basophils/100 WBC (Bld) 0.4 % Normal [facility] Comment on above: Performed By: #### C BC, DIFFA, CMP, ####[facility] ([id number])5[address] [facility] [place] [address] Eosinophils (Bld) [#/Vol] 0.3 10*3/uL Normal 0.0-0.4 [facility] Comment on above: Performed By: #### C BC, DIFFA, CMP, , ####[facility] ([id number])[address] [facility] [place] [address] Eosinophils/100 WBC (Bld) 6.0 % Normal [facility] Comment on above: Performed By: #### C BC, DIFFA, CMP, ####[facility] ([id number])[address] [facility] [place] [address] Lymphocytes (Bld) [#/Vol] 0.6 10*3/uL Low 1.0-3.5 [facility] Comment on above: Performed By: #### C BC, DIFFA, CMP, ####[facility] ([id number])5[address] [facility] [place] [address] Lymphocytes/100 WBC (Bld) 10.9 % Normal [facility] Comment on above: Performed By: #### C BC, DIFFA, CMP, ####[facility] ([id number])[address] [facility] [address] Monocytes (Bld) [#/Vol] 0.5 10*3/uL Normal 0-0.9 [facility] Comment on above: Performed By: #### C BC, DIFFA, CMP, ####[facility] ([id number])5[address] [facility] [place] [address] Monocytes/100 WBC (Bld) 9.4 % Normal [facility] Comment on above: Performed By: #### C BC, DIFFA, CMP, , ####[facility] ([id number])[address] [facility] [place] [address] Neutrophils/100 WBC (Bld) 73.3 % Normal [facility] Comment on above: Performed By: #### C BC, DIFFA, CMP, , ####[facility] ([id number])5[address] [facility] [place] [place] [address] ECG 12 leadon 12-03-2023 TRACEMASTERVUE [facility] Glomerular basement membrane IgG ABon 12-03-2023 Glomerular basement membrane IgG Qn (S) NINF [facility] Glomerular basement membrane IgG Qn (S)on 12-03-2023 GBM IgG Ab <0.2 Normal <1.0 [facility] Comment on above: Performed By: #### 2 157-6 ####[facility] ([id number])5[address] [place] [address]#### C34, SPE, [id number], 69819-6, 6969-0, 6968-2 ####[facility] ([id number])[address] [facility], [address], [place] [address] MAGNESIUMon 12-03-2023 Magnesium [Mass/Vol] 2.2 mg/dL Normal 1.8-2.6 [facility] Comment on above: Performed By: #### 2 823-3, ####[facility] ([id number])5[address] [place] [address] Magnesium [Mass/Vol] 1.5 mg/dL Low 1.8-2.6 [facility] Comment on above: Performed By: #### C BC, DIFFA, CMP, , ####[facility] ([id number])[address] [facility] [place] [address] Magnesiumon 12-03-2023 Magnesium [Mass/Vol] 2.2 mg/dL 1.8 - 2 .6 mg/dL [facility] Magnesium [Mass/Vol] 1.5 mg/dL Low 1.8 - 2 .6 mg/dL [facility] Myeloperoxidase ABon 024 Myeloperoxidase Ab Qn (S) NINF [facility] Myeloperoxidase Ab Qn (S)on 12-03-2023 Myeloperoxidase Ab <0.2 Normal <1.0 [facility] Comment on above: Performed By: #### 2 157-6 ####[facility] ([id number])5[address] [place] [address]#### C34, SPE, [id number], 65109-7, 6969-0, 6968-2 ####[facility] ([id number])[address] [facility], [address], [place] [address] No Panel Informationon 12-02 [facility] Interpretation and review of laboratory results Abnormal [facility] Interpretation and review of laboratory results Abnormal [facility] Nuclear Ab IA Ql (S)on 12-02 [facility] JUSTIN Screen w/reflex Negative Normal NEG [facility] Comment on above: Result Comment: Testing performed using multiplex flow immunoassay. Eleven different antigens associated with systemic autoimmune diseases (dsDNA,Sm,Sm/PASTRY COOK HELPER,PASTRY COOK HELPER,Chromatin, SSA,SSB,Alice-1,Scl70,Ribo P,Centromere B) are included in this screening test. Performed By: #### 2 157-6 ####[facility] ([id number])5200 [place] [address]#### C34, SPE, [id number], 28963-8, 6969-0, 6968-2 ####[facility] ([id number])[address] [facility], [address] [address] POTASSIUMon 12-03-2023 Potassium [Moles/Vol] 3.6 mmol/L Normal 3.5-5.0 [facility] Comment on above: Performed By: #### 2 823-3, 93005-2 ####[facility] ([id number])5[address] [place] [address] PROTEIN CREAT RATIOon 2023 RANDOM URINE PROTEIN 130 mg/L High <120 [facility] Comment on above: Performed By: #### 2 823-3 #### [facility] ([id number]) [address] [place] [address] U/PRO/REGIONAL PLANNER RATIO CALC 0.30 High <0.2 [facility] Comment on above: Result Comment: Neph rotic Syndrome is associated with ratios >3.5 Performed By: #### 2 823-3 #### [facility] ([id number]) [address] [place] [address] URINE CREATININE,RDM 43.64 mg/dL Normal [facility] Comment on above: Performed By: #### 2 823-3 #### [facility] ([id number]) [facility] [place] [address] Potassiumon 12-03-2023 Potassium [Moles/Vol] 3.6 mmol/L 3.5 - 5.0 mmol/L [facility] Protein creat ratioon 2023 Creatinine (U) [Mass/Vol] 43.64 mg/dL [facility] Interpretation and review of laboratory results Abnormal [facility] Protein (U) [Mass/Vol] 130 mg/L High NINF - 120 mg/L [facility] Protein/Creatinine (U) [Ratio] 0.30 High [facility].2 [facility] Comment on above: Nephrotic Syndrome i s associated with ratios >3.5 Proteinase 3 AB PR3on 2023 Proteinase 3 Ab Qn (S) NINF [facility] Proteinase 3 Ab Qn (S)on Proteinase 3 IgG Ab <0.2 Normal <1.0 [facility] Comment on above: Performed By: #### 2 157-6 ####[facility] ([id number])[address] [place] [address]#### C34, SPE, 13468-1, 84779-3, 6969-0, 6968-2 ####[facility] ([id number])[address], [address] [place] [address] SERUM PROTEIN ELECTROPHORESI Son 12-03-2023 Albumin [Mass/Vol] 3.1 g/dL Low 3.4-5.3 [facility] Comment on above: Performed By: #### 2 157-6 ####[facility] ([id number])[address] [place] [address]#### C34, SPE, 30841-1, 46224-7, 6969-0, 6968-2 ####[facility] ([id number])[address], [address] [place] [address] ALPHA 1 GLOBULIN 0.4 g/dL Normal 0.1-0.4 [facility] Comment on above: Performed By: #### 2 157-6 ####[facility] ([id number])[address] [place] [address]#### C34, SPE, 62168-9, 22353-3, 6969-0, 6968-2 ####[facility] ([id number])[address], [address] [place] [address] ALPHA 2 GLOBULIN 0.7 g/dL Normal 0.4-1.1 [facility] Comment on above: Performed By: #### 2 157-6 ####[facility] ([id number])5[address] [place] [address]#### C34, SPE, 58589-1, 63339-6, 6969-0, 6968-2 ####[facility] ([id number])[address], [address], [place] [address] BETA GLOBULIN 0.7 g/dL Normal 0.5-1.2 [facility] Comment on above: Performed By: #### 2 157-6 ####[facility] ([id number])[address] [place] [address]#### C34, SPE, 45189-5, 36431-0, 6969-0, 6968-2 ####[facility] ([id number])[address], [address] [place] [address] GAMMA GLOBULIN 0.6 g/dL Normal 0.5-1.6 [facility] Comment on above: Performed By: #### 2 157-6 ####[facility] ([id number])[address] [place] [address]#### C34, SPE, 50897-8, 13575-7, 6969-0, 6968-2 ####[facility] ([id number])[address], [address] [place] [address] PROT. ELECTROPHORESIS INTERP Unremarkable protein distribution, no monoclonal bands. Normal [facility] Comment on above: Performed By: #### 2 157-6 ####[facility] ([id number])[address] [place] [address]#### C34, SPE, 40398-9, 00764-1, 6969-0, 6968-2 ####[facility] ([id number])[address], [address] [place] [address] Protein [Mass/Vol] 5.4 g/dL Low 6.0-8.0 [facility] Comment on above: Performed By: #### 2 157-6 ####[facility] ([id number])[address] [place] [address]#### C34, SPE, 94139-1, 63748-7, 6969-0, 6968-2 ####[facility] ([id number])[address], [address] [place] [address] Sodium, urine, randomon 10-0 3-2024 Sodium (U) [Moles/Vol] 43 mmol/L [facility] Sodium (U) [Moles/Vol] 53 mmol/L [facility] URINALYSISon 12-03-2023 Bilirubin Ql (U) Negative Normal NEG [facility] Comment on above: Performed By: #### 2 823-3 #### [facility] ([id number]) [address] [place] [address] BLOOD/HGB Negative Normal NEG [facility] Comment on above: Performed By: #### 2 823-3 #### [facility] ([id number]) [address] [place] [address] Color (U) YELLOW Normal YELLOW [facility] Comment on above: Performed By: #### 2 823-3 #### [facility] ([id number]) [address] [place] [address] Glucose Ql (U) Negative Normal NEG [facility] Comment on above: Performed By: #### 2 823-3 #### [facility] ([id number]) [address] [place] [address] Ketones Ql (U) Negative Normal NEG [facility] Comment on above: Performed By: #### 2 823-3 #### [facility] ([id number]) [address] [place] [address] Leukocyte esterase Test strip Ql (U) Negative Normal NEG [facility] Comment on above: Performed By: #### 2 823-3 #### [facility] ([id number]) [address] [place] [address] Nitrite Ql (U) Negative Normal NEG [facility] Comment on above: Performed By: #### 2 823-3 #### [facility] ([id number]) [address] [place] [address] pH (U) 6.0 [pH] Normal 5.0-8.5 [facility] Comment on above: Performed By: #### 2 823-3 #### [facility] ([id number]) [address] [place] [address] Protein Ql (U) Negative Normal NEG [facility] Comment on above: Performed By: #### 2 823-3 #### [facility] ([id number]) [address] [place] [address] Specific gravity (U) [Rel density] 1.010 Normal 1.003-1.03 5 [facility] Comment on above: Performed By: #### 2 823-3 #### [facility] ([id number]) [address] [place] [address] TURBIDITY CLEAR Normal CLEAR [facility] Comment on above: Performed By: #### 2 823-3 #### [facility] ([id number]) [address] [place] [address] Urobilinogen Qn (U) 0.2 {[place]'U}/dL Normal <1.1 [facility] Comment on above: Performed By: #### 2 823-3 #### [facility] ([id number]) [address] [place] [address] URINE SODIUM,RANDOMon 2023 Sodium (U) [Moles/Vol] 43 mmol/L Normal Pr [facility] Comment on above: Performed By: #### 2 823-3 #### [facility] ([id number]) [address] [place] [address] Urinalysison 12-03-2023 Bilirubin Ql (U) Negative Negative^N egative [facility] Color (U) YELLOW YELLOW^YEL LOW [facility] Glucose (U) [Mass/Vol] Negative Negat hallie^N egative mg/dL [facility] Hemoglobin Auto test strip Ql (U) Negative Negative^N egative [facility] Ketones (U) [Mass/Vol] Negative Negat hallie^N egative mg/dL [facility] Leukocyte esterase Auto test strip Ql (U) Negative Negative^N egative [facility] Nitrite Auto test strip Ql (U) Negative Negative^N egative [facility] pH (U) 6.0 [pH] 5.0 - 8.5 [facility] Protein (U) [Mass/Vol] Negative Negat hallie^N egative mg/dL [facility] Specific gravity Refractometry automated (U) [Rel density] 1.010 1.003 - 1.035 [facility] Turbidity Ql (U) CLEAR CLEAR^TWIN R [facility] Urobilinogen Qn (U) 0.2 NINF [facility] Bilirubin Ql (U) Negative Negative^N egative [facility] Color (U) YELLOW YELLOW^YEL LOW [facility] Epithelial cells Auto (Urine sed) [#/Area] 4 [facility] Glucose (U) [Mass/Vol] Negative Negat hallie^N egative mg/dL [facility] Hemoglobin Auto test strip Ql (U) Negative Negative^N egative [facility] Interpretation and review of laboratory results Abnormal [facility] Ketones (U) [Mass/Vol] Negative Negat hallie^N egative mg/dL [facility] Leukocyte esterase Auto test strip Ql (U) SMALL Abnormal Negative^N egative [facility] Nitrite Auto test strip Ql (U) Negative Negative^N egative [facility] pH (U) 6.0 [pH] 5.0 - 8.5 [facility] Protein (U) [Mass/Vol] Negative Negat hallie^N egative mg/dL [facility] RBC Auto (Urine sed) [#/Area] 0 [facility] Specific gravity Refractometry automated (U) [Rel density] 1.010 1.003 - 1.035 [facility] Turbidity Ql (U) CLEAR CLEAR^TWIN R [facility] Urobilinogen Qn (U) 0.2 NINF [facility] WBC Auto (Urine sed) [#/Area] 7 High [facility] Urine Creatinine,randomon Creatinine (U) [Mass/Vol] 56.74 mg/dL [facility] Vancomycin [Mass/Vol]on VANCOMYCIN 34.7 ug/mL Normal 5.0-40.0 [facility] Comment on above: Result Comment: Peak 30-40 ug/mL Trough 5-20 ug/ml Performed By: #### C BC, DIFFA, CMP, 46681-7, 77252-5 ####[facility] ([id number])5[address] [place] [address] Vancomycin, randomon 024 Vancomycin [Mass/Vol] 34.7 ug/mL 5.0 - 40.0 ug/mL [facility] Comment on above: Peak 30-40 ug/mL Trough 5-20 ug/ml aPTT Coag (PPP) [Time]on [facility] BLOOD CULTUREon 12-02-2023 Bacteria identified Aer cx Nom (Bld) SPECIMEN NOTES SUBOPTIMAL VOLUME OF BLOOD COLLECTED, RESULTS MAY BE AFFECTED. CULTURE RESULTS NO GROWTH 5 DAYS Normal [facility] Comment on above: Performed By: #### 2 823-3 #### [facility] ([id number]) [facility] [place] [address] Bacteria identified Aer cx Nom (Bld) SPECIMEN NOTES SUBOPTIMAL VOLUME OF BLOOD COLLECTED, RESULTS MAY BE AFFECTED. CULTURE RESULTS NO GROWTH 5 DAYS Normal [facility] Comment on above: Performed By: #### 2 823-3 #### [facility] ([id number]) [facility] [place] [address] CBC AND AUTO DIFFon 12-02-19 24 ABSOLUTE BASOPHIL 0.0 X10E9/L Normal 0.0-0.2 [facility] Comment on above: Performed By: #### C BCA, 11561-0, CMP, 23972-9 ####[facility] ([id number])[address] [place] [address] ABSOLUTE NEUTROPHIL 6.3 X10E9/L Normal 1.5-6.6 [facility] Comment on above: Performed By: #### C BCA, 91666-7, CMP, 22084-5 ####[facility] ([id number])[address] [place] [address] Basophils/100 WBC (Bld) 0.3 % Normal [facility] Comment on above: Performed By: #### C BCA, 85075-4, CMP, 65638-9 ####[facility] ([id number])[address] [facility] [place] [address] Eosinophils (Bld) [#/Vol] 0.4 10*3/uL Normal 0.0-0.4 [facility] Comment on above: Performed By: #### C BCA, 85930-5, CMP, 93283-9 ####[facility] ([id number])[address] [facility] [place] [address] Eosinophils/100 WBC (Bld) 5.1 % Normal [facility] Comment on above: Performed By: #### C BCA, 99775-2, CMP, 56623-3 ####[facility] ([id number])[address] [facility] [place] [address] Erythrocyte distribution width (RBC) [Ratio] 14.2 % Normal 11.5-15.0 [facility] Comment on above: Performed By: #### C BCA, 58277-5, CMP, 78997-7 ####[facility] ([id number])[address] [facility] [place] [address] Hematocrit (Bld) [Volume fraction] 26.0 % Low 35-47 [facility] Comment on above: Performed By: #### C BCA, 56173-6, CMP, 85026-7 ####[facility] ([id number])[address] [facility] [place] [address] Hemoglobin (Bld) [Mass/Vol] 9.1 g/dL Low 11.7-15.5 [facility] Comment on above: Performed By: #### C LUCIA, 14364-8, CMP, 56261-1 ####[facility] ([id number])[address] [facility] [place] [address] Lymphocytes (Bld) [#/Vol] 0.5 10*3/uL Low 1.0-3.5 [facility] Comment on above: Performed By: #### C BCA, 82824-0, CMP, 54383-2 ####[facility] ([id number])[address] [facility] [place] [address] Lymphocytes/100 WBC (Bld) 6.7 % Normal [facility] Comment on above: Performed By: #### C LUCIA, 04650-2, CMP, 04549-8 ####[facility] ([id number])[address] [place] [address] MCH (RBC) [Entitic mass] 31.6 pg Normal 27-34 [facility] Comment on above: Performed By: #### C LUCIA, 60390-6, CMP, 04945-6 ####[facility] ([id number])[address] [facility] [place] [address] MCHC (RBC) [Mass/Vol] 35.1 g/dL Normal 32-36 [facility] Comment on above: Performed By: #### C LUCIA, 13176-1, CMP, 59634-9 ####[facility] ([id number])[address] [place] [address] MCV (RBC) [Entitic vol] 90 fL Normal 80-100 [facility] Comment on above: Performed By: #### C BCA, 68847-8, CMP, 19413-5 ####[facility] ([id number])[address] [facility] [place] [address] Monocytes (Bld) [#/Vol] 0.6 10*3/uL Normal 0-0.9 [facility] Comment on above: Performed By: #### C BCA, 02634-1, CMP, 36486-2 ####[facility] ([id number])[address] [place] [place] [address] Monocytes/100 WBC (Bld) 7.5 % Normal [facility] Comment on above: Performed By: #### C BCA, 55269-9, CMP, 77158-8 ####[facility] ([id number])[address] [facility] [place] [address] Neutrophils/100 WBC (Bld) 80.4 % Normal [facility] Comment on above: Performed By: #### C BCA, 16207-8, CMP, 44978-4 ####[facility] ([id number])[address] [facility] [place] [address] Platelet mean volume (Bld) [Entitic vol] 6.7 fL Low 7-12 [facility] Comment on above: Performed By: #### C BCA, 73982-1, CMP, 12046-9 ####[facility] ([id number])[address] [facility] [place] [address] Platelets (Bld) [#/Vol] 279 10*3/uL Normal 150-450 [facility] Comment on above: Performed By: #### C BCA, 81667-2, CMP, 84771-2 ####[facility] ([id number])[address] [facility] [place] [address] RBC COUNT 2.89 X10E12/L Low 3.80-5.20 [facility] Comment on above: Performed By: #### C BCA, 18959-6, CMP, 15830-1 ####[facility] ([id number])[address] [facility] [place] [address] WBC (Bld) [#/Vol] 7.8 10*3/uL Normal 4.0-11.0 [facility] Comment on above: Performed By: #### C BCA, 21279-5, CMP, 46609-0 ####[facility] ([id number])[address] [place] [address] CBC auto differentialon Basophils (Bld) [#/Vol] 0.0 10*3/uL [facility] Basophils/100 WBC (Bld) 0.3 % [facility] Eosinophils (Bld) [#/Vol] 0.4 10*3/uL [facility] Eosinophils/100 WBC (Bld) 5.1 % [facility] Erythrocyte distribution width (RBC) [Ratio] 14.2 % 11.5 - 15.0 % [facility] Hematocrit (Bld) [Volume fraction] 26.0 % Low 35 - 47 % [facility] Hemoglobin (Bld) [Mass/Vol] 9.1 g/dL Low 11.7 - 15.5 g/dL [facility] Interpretation and review of laboratory results Abnormal [facility] Lymphocytes (Bld) [#/Vol] 0.5 10*3/uL Low [facility] Lymphocytes/100 WBC (Bld) 6.7 % [facility] MCH (RBC) [Entitic mass] 31.6 pg 27 - 34 pg [facility] MCHC (RBC) [Mass/Vol] 35.1 g/dL 32 - 3 6 g/dL [facility] MCV (RBC) [Entitic vol] 90 fL 80 - 100 fL [facility] Monocytes (Bld) [#/Vol] 0.6 10*3/uL [facility] Monocytes/100 WBC (Bld) 7.5 % [facility] Neutrophils (Bld) [#/Vol] 6.3 10*3/uL [facility] Neutrophils/100 WBC (Bld) 80.4 % [facility] Platelet mean volume (Bld) [Entitic vol] 6.7 fL Low 7 - 12 fL [facility] Platelets (Bld) [#/Vol] 279 10*3/uL [facility] RBC (Bld) [#/Vol] 2.89 10*6/uL Low [facility] WBC corrected for nucl RBC Auto (Bld) [#/Vol] 7.8 [facility] COMPREHENSIVE METABOLIC PANE [place] 12-02-2023 Albumin [Mass/Vol] 3.8 g/dL Normal 3.2-5.3 [facility] Comment on above: Performed By: #### C BCA, 35437-5, CMP, 71247-8 ####[facility] ([id number])[address] [place] [address] ALP [Catalytic activity/Vol] 69 U/L Normal 39-130 [facility] Comment on above: Performed By: #### C BCA, 13758-2, CMP, 30836-5 ####[facility] ([id number])[address] [place] [address] ALT [Catalytic activity/Vol] 12 U/L Normal 0-31 [facility] Comment on above: Performed By: #### C BCA, 83451-2, CMP, 36049-7 ####[facility] ([id number])[address] [place] [address] Anion gap [Moles/Vol] 9 mmol/L Normal 5-15 [facility] Comment on above: Performed By: #### C BCA, 18219-8, CMP, 56303-4 ####[facility] ([id number])[address] [place] [address] AST [Catalytic activity/Vol] 24 U/L Normal 0-41 [facility] Comment on above: Performed By: #### C BCA, 46541-8, CMP, 18904-1 ####[facility] ([id number])[address] [place] [address] Bilirubin [Mass/Vol] 0.6 mg/dL Normal 0.3-1.2 [facility] Comment on above: Performed By: #### C BCA, 39508-4, CMP, 92656-9 ####[facility] ([id number])[address] [place] [address] Calcium [Mass/Vol] 9.8 mg/dL Normal 8.5-10.5 [facility] Comment on above: Performed By: #### C BCA, 40458-4, CMP, 07940-7 ####[facility] ([id number])[address] [place] [address] Chloride [Moles/Vol] 99 mmol/L Normal 98-109 [facility] Comment on above: Performed By: #### C BCA, 01815-0, CMP, 25781-1 ####[facility] ([id number])[address] [place] [address] CO2 [Moles/Vol] 25 mmol/L Normal 22-32 [facility] Comment on above: Performed By: #### C BCA, 24918-0, [facility], 36248-4 ####[facility] ([id number])[address] [facility] [place] [address] Creatinine [Mass/Vol] 2.52 mg/dL High 0.40-1.00 [facility] Comment on above: Result Comment: METH OD TRACEABLE TO IDMS STANDARD Performed By: #### C BCA, 92761-7, [facility], 38733-5 ####[facility] ([id number])[address] [facility] [place] [address] GFR/1.73 sq M.predicted among non-blacks MDRD (S/P/Bld) [Vol rate/Area] 22 mL/min/{1.73_m2} Low >59 [facility] Comment on above: Result Comment: Reported eGFR is based on the CKD-EPI 2020 equation that does not use a race coefficient. Performed By: #### C BCA, 73527-4, [facility], 48143-1 ####[facility] ([id number])[address] [facility] [place] [address] Glucose [Mass/Vol] 106 mg/dL High 65-99 [facility] Comment on above: Performed By: #### C BCA, 42347-6, [facility], 10599-8 ####[facility] ([id number])[address] [facility] [address] Potassium [Moles/Vol] 3.2 mmol/L Low 3.5-5.0 [facility] Comment on above: Performed By: #### C BCA, 29092-2, CMP, 94228-1 ####[facility] ([id number])[address] [place] [address] Protein [Mass/Vol] 6.4 g/dL Normal 6.0-8.0 [facility] Comment on above: Performed By: #### C BCA, 73407-8, CMP, 74671-0 ####[facility] ([id number])[address] [facility] [place] [address] Sodium [Moles/Vol] 133 mmol/L Low 134-146 [facility] Comment on above: Performed By: #### C BCA, 68973-0, CMP, 27830-6 ####[facility] ([id number])[address] [facility] [place] [address] Urea nitrogen [Mass/Vol] 27 mg/dL High 5-23 [facility] Comment on above: Performed By: #### C BCA, 83126-8, CMP, 68145-9 ####[facility] ([id number])[address] [facility] [place] [address] Comprehensive metabolic pane rome 12-02-2023 Albumin [Mass/Vol] 3.8 g/dL 3.2 - 5.3 g/dL [facility] ALP [Catalytic activity/Vol] 69 U/L 39 - 130 U/L [facility] ALT No additional P-5'-P [Catalytic activity/Vol] 12 U/L 0 - 31 U/L [facility] Anion gap [Moles/Vol] 9 mmol/L 5 - 15 mmol/L [facility] AST [Catalytic activity/Vol] 24 U/L 0 - 41 U/L [facility] Bilirubin [Mass/Vol] 0.6 mg/dL 0.3 - 1 .2 mg/dL [facility] Calcium [Mass/Vol] 9.8 mg/dL 8.5 - 10. 5 mg/dL [facility] Chloride [Moles/Vol] 99 mmol/L 98 - 10 9 mmol/L [facility] CO2 [Moles/Vol] 25 mmol/L 22 - 32 mmol/L [facility] Creatinine [Mass/Vol] 2.52 mg/dL High 0.40 - 1.00 mg/dL [facility] Comment on above: METHOD TRACEABLE TO [facility] STANDARD eGFR (CKD-EPI)non-race dependent 22 Low - PINF [facility] Comment on above: Reported eGFR is based on the CKD-EPI 2020 equation that does not use a race coefficient. Glucose [Mass/Vol] 106 mg/dL High 65 - 99 mg/dL [facility] Interpretation and review of laboratory results Abnormal [facility] Potassium [Moles/Vol] 3.2 mmol/L Low 3.5 - 5.0 mmol/L [facility] Protein [Mass/Vol] 6.4 g/dL 6.0 - 8.0 g/dL [facility] Sodium [Moles/Vol] 133 mmol/L Low 134 - 146 mmol/L [facility] Urea nitrogen [Mass/Vol] 27 mg/dL High 5 - 23 mg/dL [facility] Creatinine (U) [Mass/Vol]on 12-02-2023 URINE CREATININE,RDM 56.74 mg/dL Normal [facility] Comment on above: Performed By: #### U A, 2161-8, 2955-3 ####[facility] ([id number])[address] [place] [address] Lactate (P tayla) [Moles/Vol]o n 12-02-2023 [facility] LACTATE W/REFLEX 0.7 mmol/L Normal 0.4-2.0 [facility] Comment on above: Result Comment: Result did not trigger repeat Lactate, re-order if needed. Performed By: #### C BCA, 32184-6, CMP, 58023-6 ####[facility] ([id number])[address] [place] [address] Lactate w/ Reflexon 12-02-19 24 Lactate (P tayla) [Moles/Vol] 0.7 mmol/L 0.4 - 2.0 mmol/L [facility] Comment on above: Result did not trigger repeat Lactate, re-order if needed. URINALYSISon 12-02-2023 Bilirubin Ql (U) Negative Normal NEG [facility] Comment on above: Performed By: #### Karolyn Eason, 2160-09, 2954-04 ####[facility] ([id number])[address] [place] [address] BLOOD/HGB Negative Normal NEG [facility] Comment on above: Performed By: #### Karolyn Eason, 2160-09, 2954-04 ####[facility] ([id number])[address] [place] [address] Color (U) YELLOW Normal YELLOW [facility] Comment on above: Performed By: #### Karolyn Eason, 2160-09, 2954-04 ####[facility] ([id number])[address] [place] [address] Glucose Ql (U) Negative Normal NEG [facility] Comment on above: Performed By: #### Karolyn Eason, 2160-09, 2954-04 ####[facility] ([id number])[address] [place] [address] Ketones Ql (U) Negative Normal NEG [facility] Comment on above: Performed By: #### Karolyn Eason, 2160-09, 2954-04 ####[facility] ([id number])[address] [place] [address] Leukocyte esterase Test strip Ql (U) SMALL Abnormal NEG [facility] Comment on above: Performed By: #### Karolyn Eason, 2160-09, 2954-04 ####[facility] ([id number])[address] [place] [address] Nitrite Ql (U) Negative Normal NEG [facility] Comment on above: Performed By: #### Karolyn Eason, 2160-09, 2954-04 ####[facility] ([id number])[address] [place] [address] pH (U) 6.0 [pH] Normal 5.0-8.5 [facility] Comment on above: Performed By: #### Karolyn Eason, 2160-09, 2954-04 ####[facility] ([id number])[address] [place] [address] Protein Ql (U) Negative Normal NEG [facility] Comment on above: Performed By: #### U Yumi, 2160-09, 2954-04 ####[facility] ([id number])[address] [place] [address] R.B.CELLS 0 /hpf Normal 0-5 [facility] Comment on above: Performed By: #### Karolyn Eason, 2160-09, 2954-04 ####[facility] ([id number])5[address] [place] [address] Specific gravity (U) [Rel density] 1.010 Normal 1.003-1.03 5 [facility] Comment on above: Performed By: #### Karolyn Eason, 2160-09, 2954-04 ####[facility] ([id number])[address] [place] [address] SQUAMOUS EPITHELIUM 4 /hpf Normal 0-5 [facility] Comment on above: Performed By: #### Karolyn Eason, 2160-09, 2954-04 ####[facility] ([id number])[address] [place] [address] TURBIDITY CLEAR Normal CLEAR [facility] Comment on above: Performed By: #### Karolyn Eason, 2160-09, 2954-04 ####[facility] ([id number])[address] [place] [address] Urobilinogen Qn (U) 0.2 {[place]'U}/dL Normal <1.1 [facility] Comment on above: Performed By: #### Karolyn Eason, 2160-09, 2954-04 ####[facility] ([id number])[address] [place] [address] W.B.CELLS 7 /hpf High 0-5 [facility] Comment on above: Performed By: #### Karolyn Eason, 2160-09, 2955-3 ####[facility] ([id number])[address] [facility] [place] [address] URINE CULTUREon 12-02-2023 Bacteria identified Cx Nom (U) CULTURE RESULTS NO GROWTH AT <1000 CFU/mL Normal [facility] Comment on above: Performed By: #### 6 30-4 ####[facility] ([id number])[address] [facility], [address], [place] [address] URINE SODIUM,RANDOMon 2023 Sodium (U) [Moles/Vol] 53 mmol/L Normal Pr [facility] Comment on above: Performed By: #### U A, 2161-8, 2955-3 ####[facility] ([id number])[address] [facility] [place] [address] aPTT Coag (PPP) [Time]on aPTT Coag (Bld) [Time] 35 s Normal 26-37 [facility] Comment on above: Performed By: #### C BCA, 94223-7, CMP, 10659-6 ####[facility] ([id number])[address] [facility] [place] [address] BASIC METABOLIC PANLon 11-29 Anion gap [Moles/Vol] 8 mmol/L Normal 5-15 [facility] Comment on above: Performed By: #### C BCA, BMP ####[facility] ([id number])[address] [facility] [place] [address] Calcium [Mass/Vol] 9.6 mg/dL Normal 8.5-10.5 [facility] Comment on above: Performed By: #### C BCA, BMP ####[facility] ([id number])[address] [facility] [place] [address] Chloride [Moles/Vol] 105 mmol/L Normal 98-109 [facility] Comment on above: Performed By: #### C BCA, BMP ####[facility] ([id number])5[address] [facility] [place] [address] CO2 [Moles/Vol] 29 mmol/L Normal 22-32 [facility] Comment on above: Performed By: #### C BCA, BMP ####[facility] ([id number])[address] [facility] [place] [address] Creatinine [Mass/Vol] 0.62 mg/dL Normal 0.40-1.00 [facility] Comment on above: Result Comment: METH OD TRACEABLE TO IDMS STANDARD Performed By: #### C BCA, BMP ####[facility] ([id number])[address] [facility] [place] [address] eGFR (CKD-EPI) NON-RACE DEPENDENT >90 Normal >59 [facility] Comment on above: Result Comment: Reported eGFR is based on the CKD-EPI 2020 equation that does not use a race coefficient. Performed By: #### C BCA, BMP ####[facility] ([id number])5200 [place] [address] Glucose [Mass/Vol] 84 mg/dL Normal 65-99 [facility] Comment on above: Performed By: #### C BCA, BMP ####[facility] ([id number])5200 [facility] [place] [address] Potassium [Moles/Vol] 3.3 mmol/L Low 3.5-5.0 [facility] Comment on above: Performed By: #### C BCA, BMP ####[facility] ([id number])5200 [place] [address] Sodium [Moles/Vol] 142 mmol/L Normal 134-146 [facility] Comment on above: Performed By: #### C BCA, BMP ####[facility] ([id number])5200 [place] [address] Urea nitrogen [Mass/Vol] 9 mg/dL Normal 5-23 [facility] Comment on above: Performed By: #### C BCA, BMP ####[facility] ([id number])5200 [facility] [place] [address] CBC AND AUTO DIFFon 11-30-19 24 ABSOLUTE BASOPHIL 0.1 X10E9/L Normal 0.0-0.2 [facility] Comment on above: Performed By: #### C BCA, BMP ####[facility] ([id number])[address] [place] [address] ABSOLUTE NEUTROPHIL 4.2 X10E9/L Normal 1.5-6.6 [facility] Comment on above: Performed By: #### C BCA, BMP ####[facility] ([id number])[address] [place] [address] Basophils/100 WBC (Bld) 0.8 % Normal [facility] Comment on above: Performed By: #### C LUCIA, BMP ####[facility] ([id number])[address] [place] [address] Eosinophils (Bld) [#/Vol] 0.4 10*3/uL Normal 0.0-0.4 [facility] Comment on above: Performed By: #### C BCA, BMP ####[facility] ([id number])[address] [place] [address] Eosinophils/100 WBC (Bld) 6.4 % Normal [facility] Comment on above: Performed By: #### C BCA, BMP ####[facility] ([id number])[address] [place] [address] Erythrocyte distribution width (RBC) [Ratio] 13.9 % Normal 11.5-15.0 [facility] Comment on above: Performed By: #### C BCA, BMP ####[facility] ([id number])[address] [place] [address] Hematocrit (Bld) [Volume fraction] 25.2 % Low 35-47 [facility] Comment on above: Performed By: #### C BCA, BMP ####[facility] ([id number])[address] [place] [address] Hemoglobin (Bld) [Mass/Vol] 8.8 g/dL Low 11.7-15.5 [facility] Comment on above: Performed By: #### C BCA, BMP ####[facility] ([id number])[address] [facility] [place] [address] Lymphocytes (Bld) [#/Vol] 1.2 10*3/uL Normal 1.0-3.5 [facility] Comment on above: Performed By: #### C BCA, BMP ####[facility] ([id number])[address] [facility] [place] [address] Lymphocytes/100 WBC (Bld) 19.2 % Normal [facility] Comment on above: Performed By: #### C BCA, BMP ####[facility] ([id number])[address] [facility] [place] [address] MCH (RBC) [Entitic mass] 31.6 pg Normal 27-34 [facility] Comment on above: Performed By: #### C BCA, BMP ####[facility] ([id number])[address] [facility] [place] [address] MCHC (RBC) [Mass/Vol] 35.0 g/dL Normal 32-36 [facility] Comment on above: Performed By: #### C BCA, BMP ####[facility] ([id number])[address] [facility] [place] [address] MCV (RBC) [Entitic vol] 90 fL Normal 80-100 [facility] Comment on above: Performed By: #### C BCA, BMP ####[facility] ([id number])[address] [facility] [place] [address] Monocytes (Bld) [#/Vol] 0.5 10*3/uL Normal 0-0.9 [facility] Comment on above: Performed By: #### C BCA, BMP ####[facility] ([id number])[address] [facility] [place] [address] Monocytes/100 WBC (Bld) 8.4 % Normal [facility] Comment on above: Performed By: #### C BCA, BMP ####[facility] ([id number])[address] [place] [address] Neutrophils/100 WBC (Bld) 65.2 % Normal [facility] Comment on above: Performed By: #### C LUCIA, BMP ####[facility] ([id number])[address] [place] [address] Platelet mean volume (Bld) [Entitic vol] 6.8 fL Low 7-12 [facility] Comment on above: Performed By: #### C LUCIA, BMP ####[facility] ([id number])[address] [facility] [place] [address] Platelets (Bld) [#/Vol] 294 10*3/uL Normal 150-450 [facility] Comment on above: Performed By: #### C LUCIA, BMP ####[facility] ([id number])[address] [facility] [place] [address] RBC COUNT 2.80 X10E12/L Low 3.80-5.20 [facility] Comment on above: Performed By: #### C LUCIA, BMP ####[facility] ([id number])[address] [facility] [place] [address] WBC (Bld) [#/Vol] 6.5 10*3/uL Normal 4.0-11.0 [facility] Comment on above: Performed By: #### C LUCIA, BMP ####[facility] ([id number])[address] [facility] [place] [address] CK [Catalytic activity/Vol]o n 11-28-2023 CPK 45 U/L Normal 24-170 [facility] Comment on above: Performed By: #### 2 157-6 ####[facility] ([id number])[address] [facility] [place] [place] [address] AFB CULTURE(CONCENTRATED)on 11-27-2023 Mycobacterium sp identified Org specific cx Nom (Unsp spec) SPECIMEN NOTES SPECIMEN A AFB SMEAR NO ACID FAST BACILLI (CONCENTRATED SMEAR) 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 Normal [facility] Comment on above: Performed By: #### 5 43-9 ####[facility] ([id number])[address] [address] ANAEROBE CULTUREon 4 Bacteria identified Anaer cx Nom (Unsp spec) SPECIMEN NOTES SPECIMEN A CULTURE RESULTS NO GROWTH 5 DAYS Normal [facility] Comment on above: Performed By: #### 6 35-3 ####[facility] ([id number])[address], [address] [address] ASPIRATE CULTUREon 4 Bacteria identified Aer cx Nom (Asp) SPECIMEN NOTES SPECIMEN A GRAM STAIN >25 WHITE BLOOD CELLS/LPF 0 SQUAMOUS EPITHELIAL CELLS/LPF NO ORGANISMS SEEN CULTURE 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 Normal [facility] Comment on above: Performed By: #### 5 97-5 ####[facility] ([id number])[address], [address] [address] BASIC METABOLIC PANLon 11-26 Anion gap [Moles/Vol] 5 mmol/L Normal 5-15 [facility] Comment on above: Performed By: #### C SHAY BROWN BMP ####[facility] ([id number])[address] [place] [address] Calcium [Mass/Vol] 9.5 mg/dL Normal 8.5-10.5 [facility] Comment on above: Performed By: #### C SHAY BROWN, BMP ####[facility] ([id number])[address] [place] [address] Chloride [Moles/Vol] 105 mmol/L Normal 98-109 [facility] Comment on above: Performed By: #### C SHAY BROWN, BMP ####[facility] ([id number])[address] [place] [address] CO2 [Moles/Vol] 30 mmol/L Normal 22-32 [facility] Comment on above: Performed By: #### C KEVIN DIFFA, BMP ####[facility] ([id number])[address] [place] [address] Creatinine [Mass/Vol] 0.71 mg/dL Normal 0.40-1.00 [facility] Comment on above: Result Comment: METH OD TRACEABLE TO IDMS STANDARD Performed By: #### C KEVIN DIFFA, BMP ####[facility] ([id number])[address] [place] [address] eGFR (CKD-EPI) NON-RACE DEPENDENT >90 Normal >59 [facility] Comment on above: Result Comment: Reported eGFR is based on the CKD-EPI 2020 equation that does not use a race coefficient. Performed By: #### C KEVIN DIFFA, BMP ####[facility] ([id number])[address] [place] [address] Glucose [Mass/Vol] 101 mg/dL High 65-99 [facility] Comment on above: Performed By: #### C KEVIN DIFFA, BMP ####[facility] ([id number])[address] [place] [address] Potassium [Moles/Vol] 3.8 mmol/L Normal 3.5-5.0 [facility] Comment on above: Performed By: #### C KEVIN DIFFA, BMP ####[facility] ([id number])[address] [place] [address] Sodium [Moles/Vol] 140 mmol/L Normal 134-146 [facility] Comment on above: Performed By: #### C KEVIN DIFFA, BMP ####[facility] ([id number])[address] [place] [address] Urea nitrogen [Mass/Vol] 16 mg/dL Normal 5-23 [facility] Comment on above: Performed By: #### C BC DIFFA, BMP ####[facility] ([id number])[address] [place] [address] COMPLETE BLOOD COUNTon 11-26 Erythrocyte distribution width (RBC) [Ratio] 13.6 % Normal 11.5-15.0 [facility] Comment on above: Performed By: #### C BC, DIFFA, BMP ####[facility] ([id number])[address] [facility] [place] [address] Hematocrit (Bld) [Volume fraction] 24.9 % Low 35-47 [facility] Comment on above: Performed By: #### C BC, DIFFA, BMP ####[facility] ([id number])[address] [place] [address] Hemoglobin (Bld) [Mass/Vol] 8.7 g/dL Low 11.7-15.5 [facility] Comment on above: Performed By: #### C BC, DIFFA, BMP ####[facility] ([id number])[address] [place] [address] MCH (RBC) [Entitic mass] 31.5 pg Normal 27-34 [facility] Comment on above: Performed By: #### C BC, DIFFA, BMP ####[facility] ([id number])[address] [place] [address] MCHC (RBC) [Mass/Vol] 34.7 g/dL Normal 32-36 [facility] Comment on above: Performed By: #### C BC, DIFFA, BMP ####[facility] ([id number])[address] [place] [address] MCV (RBC) [Entitic vol] 91 fL Normal 80-100 [facility] Comment on above: Performed By: #### C BC, DIFFA, BMP ####[facility] ([id number])[address] [facility] [place] [address] Platelet mean volume (Bld) [Entitic vol] 6.6 fL Low 7-12 [facility] Comment on above: Performed By: #### C BC, DIFFA, BMP ####[facility] ([id number])[address] [facility] [place] [address] Platelets (Bld) [#/Vol] 267 10*3/uL Normal 150-450 [facility] Comment on above: Performed By: #### C BC, DIFFA, BMP ####[facility] ([id number])[address] [place] [address] RBC COUNT 2.75 X10E12/L Low 3.80-5.20 [facility] Comment on above: Performed By: #### C BC, DIFFA, BMP ####[facility] ([id number])[address] [place] [address] WBC (Bld) [#/Vol] 6.2 10*3/uL Normal 4.0-11.0 [facility] Comment on above: Performed By: #### C BC, DIFFA, BMP ####[facility] ([id number])[address] [place] [address] DIFFERENTIALon 11-27-2023 ABSOLUTE BASOPHIL 0.0 X10E9/L Normal 0.0-0.2 [facility] Comment on above: Performed By: #### C BC, DIFFA, BMP ####[facility] ([id number])[address] [place] [address] ABSOLUTE NEUTROPHIL 3.9 X10E9/L Normal 1.5-6.6 [facility] Comment on above: Performed By: #### C BC, DIFFA, BMP ####[facility] ([id number])[address] [place] [address] Basophils/100 WBC (Bld) 0.5 % Normal [facility] Comment on above: Performed By: #### C BC, DIFFA, BMP ####[facility] ([id number])[address] [place] [address] Eosinophils (Bld) [#/Vol] 0.6 10*3/uL High 0.0-0.4 [facility] Comment on above: Performed By: #### C BC, DIFFA, BMP ####[facility] ([id number])[address] [place] [address] Eosinophils/100 WBC (Bld) 9.2 % Normal [facility] Comment on above: Performed By: #### C BC, DIFFA, BMP ####[facility] ([id number])[address] [facility] [place] [address] Lymphocytes (Bld) [#/Vol] 1.1 10*3/uL Normal 1.0-3.5 [facility] Comment on above: Performed By: #### C BC, DIFFA, BMP ####[facility] ([id number])[address] [facility] [place] [address] Lymphocytes/100 WBC (Bld) 17.3 % Normal [facility] Comment on above: Performed By: #### C BC, DIFFA, BMP ####[facility] ([id number])[address] [facility] [address] Monocytes (Bld) [#/Vol] 0.6 10*3/uL Normal 0-0.9 [facility] Comment on above: Performed By: #### C BC, DIFFA, BMP ####[facility] ([id number])[address] [facility] [place] [address] Monocytes/100 WBC (Bld) 9.7 % Normal [facility] Comment on above: Performed By: #### C BC, DIFFA, BMP ####[facility] ([id number])[address] [facility] [place] [address] Neutrophils/100 WBC (Bld) 63.3 % Normal [facility] Comment on above: Performed By: #### C BC, DIFFA, BMP ####[facility] ([id number])[address] [facility] [place] [address] FUNGAL CULTUREon 11-27-2023 Fungus identified Cx Nom (Unsp spec) SPECIMEN NOTES SPECIMEN A FUNGAL SMEAR NO FUNGAL ELEMENTS SEEN ON DIRECT SMEAR CULTURE RESULTS NO FUNGUS ISOLATED AFTER 4 WEEKS Normal [facility] Comment on above: Performed By: #### 5 80-1 ####[facility] ([id number])[address], [place] [address] MRSA PCR NASALon 11-27-2023 MRSA DNA KYLE+probe Ql (Unsp spec) Negative Normal NEG [facility] Comment on above: Performed By: #### 3 5492-8 ####[facility] ([id number])[address], [address], [place] [address] SEND OUT TESTon 11-27-2023 SENT TO [facility] Comment on above: Result Comment: [id number] SPECIMEN LJ SLANT FROM LEFT BREAST ASPIRATE SPECIMEN A Normal [facility] TEST NAME: [facility] APPR O SUSCEPTIBILITY Normal [facility] TEST RESULT See separate report. View in OnBase or in EPIC. Normal [facility] BASIC METABOLIC PANLon 11-25 Anion gap [Moles/Vol] 8 mmol/L Normal 5-15 [facility] Comment on above: Performed By: #### 3 2132-03, 1987-07, 28989-3, BMP ####[facility] ([id number])[address] [place] [address]#### 87108-5 ####[facility] ([id number])[address], [address] [place] [address] Calcium [Mass/Vol] 9.5 mg/dL Normal 8.5-10.5 [facility] Comment on above: Performed By: #### 3 2132-03, 1987-07, 76635-1, BMP ####[facility] ([id number])[address] [place] [address]#### 42098-6 ####[facility] ([id number])[address], [address], [place] [address] Chloride [Moles/Vol] 102 mmol/L Normal 98-109 [facility] Comment on above: Performed By: #### 3 2132-03, 1987-07, 37048-8, BMP ####[facility] ([id number])[address] [place] [address]#### 56181-1 ####[facility] ([id number])[address], [address] [place] [address] CO2 [Moles/Vol] 29 mmol/L Normal 22-32 [facility] Comment on above: Performed By: #### 3 2132-03, 1987-07, , BMP ####[facility] ([id number])[address] [place] [address]#### 92575-9 ####[facility] ([id number])[address] [address] Creatinine [Mass/Vol] 0.81 mg/dL Normal 0.40-1.00 [facility] Comment on above: Result Comment: METH OD TRACEABLE TO IDMS STANDARD Performed By: #### 3 2132-03, 1987-07, 40674-1, BMP ####[facility] ([id number])[address] [place] [address]#### 95392-0 ####[facility] ([id number])[address] [address] GFR/1.73 sq M.predicted among non-blacks MDRD (S/P/Bld) [Vol rate/Area] 87 mL/min/{1.73_m2} Normal >59 [facility] Comment on above: Result Comment: Reported eGFR is based on the CKD-EPI 2020 equation that does not use a race coefficient. Performed By: #### 3 2132-03, 1987-07, , BMP ####[facility] ([id number])[address] [place] [address]#### 93109-1 ####[facility] ([id number])[address] [address] Glucose [Mass/Vol] 97 mg/dL Normal 65-99 [facility] Comment on above: Performed By: #### 3 2132-03, 1987-07, 90362-7, BMP ####[facility] ([id number])[address] [place] [address]#### 80445-4 ####[facility] ([id number])[address], [address], [place] [address] Potassium [Moles/Vol] 3.0 mmol/L Low 3.5-5.0 [facility] Comment on above: Performed By: #### 3 2132-03, 1987-07, 69636-2, BMP ####[facility] ([id number])[address] [place] [address]#### 38119-1 ####[facility] ([id number])[address], [address], [place] [address] Sodium [Moles/Vol] 139 mmol/L Normal 134-146 [facility] Comment on above: Performed By: #### 3 2132-03, 1987-07, 82694-4, BMP ####[facility] ([id number])[address] [place] [address]#### 70971-1 ####[facility] ([id number])[address], [address] [place] [address] Urea nitrogen [Mass/Vol] 19 mg/dL Normal 5-23 [facility] Comment on above: Performed By: #### 3 2132-03, 1987-07, 35930-1, BMP ####[facility] ([id number])[address] [place] [address]#### 73214-8 ####[facility] ([id number])[address], [address], [place] [address] BLOOD CULTUREon 09-26-2024 Bacteria identified Aer cx Nom (Bld) CULTURE RESULTS NO GROWTH 5 DAYS Normal [facility] CRP [Mass/Vol]on 11-26-2023 C REACTIVE PROTEIN 2.6 mg/dL High 0.000-0.7 4 4 [facility] Comment on above: Performed By: #### 3 2132-03, 1987-07, , BMP ####[facility] ([id number])[address] [place] [address]#### 26514-6 ####[facility] ([id number])[address] [facility], [address] [place] [address] ESR Photometric method (Bld) [Velocity]on 11-26-2023 ESR, ERYTHROCYTE SEDIMENTATION RATE 30 mm/h Normal 0-30 [facility] Comment on above: Performed By: #### 3 2132-03, 1987-07, , BMP ####[facility] ([id number])[address] [place] [address]#### 70149-7 ####[facility] ([id number])[address] [facility], [address] [address] Lactate (P tayla) [Moles/Vol]o n 11-26-2023 LACTATE W/REFLEX 0.7 mmol/L Normal 0.4-2.0 [facility] Comment on above: Result Comment: Result did not trigger repeat Lactate, re-order if needed. Performed By: #### 3 2132-03, 1987-07, , BMP ####[facility] ([id number])0 [place] [address]#### 00870-5 ####[facility] ([id number])[address] [facility], [address] [address] Procalcitonin IA [Mass/Vol]o n 11-26-2023 PROCALCITONIN <0.05 Normal <0.05 [facility] Comment on above: Result Comment: NOTE <0.50 ng/mL - Low risk of severe sepsis and/or septic shock. <2.00 ng/mL - Recommend retesting within 6-24 hours. >2.00 ng/mL - High risk of sepsis and/or septic shock. Performed By: #### 3 3-1, 1987-5, 72137-0, BMP ####[facility] ([id number])[address] [place] [address]#### 61147-0 ####[facility] ([id number])[address] [place] [address] ASPIRATE CULTUREon 4 Bacteria identified Aer cx Nom (Asp) GRAM STAIN >25 WHITE BLOOD CELLS/LPF 0 SQUAMOUS EPITHELIAL CELLS/LPF NO ORGANISMS SEEN CULTURE RESULTS FEW Mycobacterium Abscessus REPORT UPDATED GROWTH OBSERVED AT 3RD DAY FOR SUSCEPTIBILITY, SEE PREVIOUS REPORT. Normal [facility] Comment on above: Performed By: #### 5 97-5 ####[facility] ([id number])[address] [place] [address] BASIC METABOLIC PANLon 10-28 Anion gap [Moles/Vol] 8 mmol/L Normal 5-15 [facility] Comment on above: Performed By: #### B MP, CBC #### [facility] ([id number]) [address] [place] [address] #### 6793-4 #### [facility] ([id number]) [address] [place] [address] Calcium [Mass/Vol] 8.5 mg/dL Normal 8.5-10.5 [facility] Comment on above: Performed By: #### B MP, CBC #### [facility] ([id number]) [address] [place] [address] #### 6793-4 #### [facility] ([id number]) [address] [place] [address] Chloride [Moles/Vol] 105 mmol/L Normal 98-109 [facility] Comment on above: Performed By: #### B MP, CBC #### [facility] ([id number]) [facility] [place] [address] #### 6793-4 #### [facility] ([id number]) [address], [address] [place] [address] CO2 [Moles/Vol] 27 mmol/L Normal 22-32 [facility] Comment on above: Performed By: #### B MP, CBC #### [facility] ([id number]) [address] [place] [address] #### 6793-4 #### [facility] ([id number]) [address], [address] [place] [address] Creatinine [Mass/Vol] 0.91 mg/dL Normal 0.40-1.00 [facility] Comment on above: Result Comment: METH OD TRACEABLE TO IDMS STANDARD Performed By: #### B MP, CBC #### [facility] ([id number]) [address] [place] [address] #### 6793-4 #### [facility] ([id number]) [address], [address] [place] [address] GFR/1.73 sq M.predicted among non-blacks MDRD (S/P/Bld) [Vol rate/Area] 75 mL/min/{1.73_m2} Normal >59 [facility] Comment on above: Result Comment: Reported eGFR is based on the CKD-EPI 2020 equation that does not use a race coefficient. Performed By: #### B MP, CBC #### [facility] ([id number]) [address] [place] [address] #### 6793-4 #### [facility] ([id number]) [address], [address] [place] [address] Glucose [Mass/Vol] 128 mg/dL High 65-99 [facility] Comment on above: Performed By: #### B MP, CBC #### [facility] ([id number]) [address] [place] [id number] #### 6793-4 #### [facility] ([id number]) [address], [address] [place] [address] Potassium [Moles/Vol] 3.2 mmol/L Low 3.5-5.0 [facility] Comment on above: Performed By: #### B MP, CBC #### [facility] ([id number]) [address] [place] [id number] #### 6793-4 #### [facility] ([id number]) [address], [address] [place] [address] Sodium [Moles/Vol] 140 mmol/L Normal 134-146 [facility] Comment on above: Performed By: #### B MP, CBC #### [facility] ([id number]) [address] [place] [address] #### 6793-4 #### [facility] ([id number]) [address], [address] [place] [address] Urea nitrogen [Mass/Vol] 22 mg/dL Normal 5-23 [facility] Comment on above: Performed By: #### B MP, CBC #### [facility] ([id number]) [address] [place] [id number] #### 6793-4 #### [facility] ([id number]) [address], [address] [place] [address] COMPLETE BLOOD COUNTon 10-28 Erythrocyte distribution width (RBC) [Ratio] 15.0 % Normal 11.5-15.0 [facility] Comment on above: Performed By: #### B MP, CBC #### [facility] [facility] ([id number]) [address] [place] [address] #### 6793-4 #### [facility] ([id number]) [address], [address] [place] [address] Hematocrit (Bld) [Volume fraction] 21.9 % Low 35-47 [facility] Comment on above: Performed By: #### Willis MP, CBC #### [facility] ([id number]) [address] [place] [address] #### 6793-4 #### [facility] ([id number]) [address] [place] [address] Hemoglobin (Bld) [Mass/Vol] 7.7 g/dL Low 11.7-15.5 [facility] Comment on above: Performed By: #### Willis MP, CBC #### [facility] ([id number]) [address] [place] [address] #### 6793-4 #### [facility] ([id number]) [address] [place] [address] MCH (RBC) [Entitic mass] 34.2 pg High 27-34 [facility] Comment on above: Performed By: #### Willis MP, CBC #### [facility] ([id number]) [address] [place] [address] #### 6793-4 #### [facility] ([id number]) [address] [place] [address] MCHC (RBC) [Mass/Vol] 35.0 g/dL Normal 32-36 [facility] Comment on above: Performed By: #### Willis MP, CBC #### [facility] ([id number]) [address] [place] [address] #### 6793-4 #### [facility] ([id number]) [address], [address] [place] [address] MCV (RBC) [Entitic vol] 98 fL Normal 80-100 [facility] Comment on above: Performed By: #### B MP, CBC #### [facility] ([id number]) [address] [place] [address] #### 6793-4 #### [facility] ([id number]) [address], [address] [place] [address] Platelet mean volume (Bld) [Entitic vol] 7.5 fL Normal 7-12 [facility] Comment on above: Performed By: #### B MP, CBC #### [facility] ([id number]) [address] [place] [address] #### 6793-4 #### [facility] ([id number]) [address], [address] [place] [address] Platelets (Bld) [#/Vol] 220 10*3/uL Normal 150-450 [facility] Comment on above: Performed By: #### B MP, CBC #### [facility] ([id number]) [address] [place] [address] #### 6793-4 #### [facility] ([id number]) [address], [address] [place] [address] RBC COUNT 2.24 X10E12/L Low 3.80-5.20 [facility] Comment on above: Performed By: #### B MP, CBC #### [facility] ([id number]) [address] [place] [address] #### 6793-4 #### [facility] ([id number]) [address], [address] [place] [address] WBC (Bld) [#/Vol] 9.0 10*3/uL Normal 4.0-11.0 [facility] Comment on above: Performed By: #### B MP, CBC #### [facility] ([id number]) [address] [place] [address] [place] [address] #### 6793-4 #### [facility] ([id number]) [address] [place] [address], [address] [place] [address] Prealbumin IA [Mass/Vol]on 0 10-29-2023 Prealbumin [Mass/Vol] 19 mg/dL Normal 18-45 [facility] Comment on above: Performed By: #### B MP, CBC #### [facility] ([id number]) [address] [place] [address] #### 6793-4 #### [facility] ([id number]) [address] [place] [address], [address] [place] [address] MAMM SPECIMEN FILMS RTon MAMM SPECIMEN FILMS RT MAMM SPECIMEN MISSAEL MS RT IKE FLANNERY 1970 [id number] MAMM SPECIMEN FILMS RT, 10/28/2023 7:53 AM CLINICAL INDICATIONS: Faxitron, intraoperative specimen radiograph COMPARISON: 09/04/2023 FINDINGS: Digital radiograph of the specimen submitted and interpreted on a dedicated mammography workstation. IMPRESSION: Submitted radiograph demonstrates the Hydromark T5 clip and Magseed within the excised tissue. Finalized by Rosemary Gasca MD on 10/28/2023 1:58 PM Normal [facility] POTASSIUMon 10-28-2023 Potassium [Moles/Vol] 4.0 mmol/L Normal 3.5-5.0 [facility] Comment on above: Result Comment: SPEC IMEN HEMOLYZED, RESULTS INCREASED MARKEDLY HEMOLYZED Performed By: #### 2 823-3 #### [facility] ([id number]) [address] [place] [address] Surgical Pathologyon 024 Surgical Pathology Normal [facility] Comment on above: Result Comment: [facility] [address] [place] [address] Surgical Pathology Consultation Patient Name:IKE FLANNERY:1970 (Age: 53)Gender:FTaken:4Reported:4Physician(s):Roxann He MD ([phone])Copy To:Jhon B. Sugg, [facility] Centeression #:[id number]. Rec. #:[id number]: #[id number] Final Pathologic Diagnosis 1. Left breast, mastectomy: [...] and Drug Administration (FDA) cleared (test/vendor): Confirm/ Mcdonald, Primary Antibody: SP1 Progesterone Receptor: FDA cleared (test/vendor): Confirm/ Mcdonald, Primary Antibody: 1E2 HER2: FDA approved (test/vendor): Pathway/ Mcdonald, Primary Antibody: 4B5 Detection System (ER, PgR and/or HER2): Mcdonald ultraView [place] DAB Detection Kit (indirect biotin-free detection) Scoring [...] complete (more content not included)... HPon 10-27-2023 History Of Present Illness Tia A Widman [...] findings on echocardiography and lower extremity edema. Normal [facility] NURSNOTEon 10-27-2023 GUY RN educated pt on d/ c instructions. RN encouraged pt to voice any questions or concerns. Pt verbalizes no questions or concerns at this time. Pt walked off of unit with all of belongings. Normal [facility] 36on 10-23-2023 36 Per Raj in the cance r infusion center at [facility], this patient is scheduled for double mastectomy on 10/27. She wants to know if the RHC is that urgent or can it wait until after her surgery? Also, I'm assuming someone may be asking for clearance for this. Are you able to clear her or not until the heart cath? Please advise. Normal [facility] MAMM POST BX DIAG UNI RTon 0 10-16-2023 MAMM POST BX DIAG UNI RT MAMM POST BX DI AG UNI RT IKE FLANNERY 1970 [id number], [id number] EXAM: MAMM POST BX DIAG UNI RT, US LOC BRST US GUID INIT RT, 10/16/2023 2:17 PM CLINICAL INDICATIONS: Right breast malignancy, axillary Magseed placement prior to surgical excision COMPARISON: Right axillary biopsy 05/08/2023 PERFORMING PHYSICIAN: Bre Sanchez MD PROCEDURE: The risks, benefits, and alternatives [...] for Magseed placement. BIRADS:Post Magseed Finalized by Bre Sanchez MD on 10/16/2023 2:32 PM 2000 Normal [facility] US LOC BRST US GUID INIT RTo n 10-16-2023 US LOC BRST US GUID INIT RT US LOC BRST US GUID INIT RT IKE FLANNERY 1970 [id number], [id number] EXAM: MAMM POST BX DIAG UNI RT, US LOC BRST US GUID INIT RT, 10/16/2023 2:17 PM CLINICAL INDICATIONS: Right breast malignancy, axillary Magseed placement prior to surgical excision COMPARISON: Right axillary biopsy 05/08/2023 PERFORMING PHYSICIAN: Bre Sanchez MD PROCEDURE: The risks, benefits, and alternatives [...] for Magseed placement. BIRADS:Post Magseed Finalized by Bre Sanchez MD on 10/16/2023 2:32 PM 2000 Normal [facility] Orders Onlyon 10-08-2023 Orders Only [id number] Ike Flannery 1970 F Date Provider Department Center 10/08/2023 89[facility] Family History Adopted: Yes Problem Relation Age of Onset Heart attack Father Family Status - Relation Status Age at Father Normal [facility] MR BREAST BILAT W WO CONT W [...] image and subtraction processing were performed using zintin software. The images were interpreted using image [...] 1:55 PM 6 F/U REFER DR Astorga [facility] Office Visiton 08-31-2023 Follow-up visit [id number] Ike Flannery 1970 F Date Provider Department Center 08/31/2023 Will-[facility]UC[facility] Family History Adopted: Yes Problem Relation Age of Onset Heart attack Father Family Status - Relation Status Age at Father Level of Service:18459 AR OFFICE/OUTPATIENT NEW MODERATE MDM 45 MINUTES Normal [facility] Ambulatory Visit Summaryon 0 06-04-2023 Ambulatory Visit Summary IKE FLANNERY :1970 Visit Date:06/04/2023 Ambulatory Visit Instructions Your Care Team Attending Physician - BRENNON JAMESON, Sandrita Garcia Primary Care Physician - RANDY CALLE DO [...] choosing us for your care. Rizwan [facility] General Surgery Office/Clini c Noteon 06-04-2023 General Surgery Office/Clinic Note Chief Complaint post operative follow up HPI Staff 22 day post operative follow up post port insertion. Denies discomfort. no use of pain medication. Denies bleeding or drainage. Port has been accessed three times without incident. History of Present Illness s/p left subclavian xfymxn-r-jner insertion 3 weeks ago; doing well, mild [...] influenza virus vaccine, inactivated 12/29/2012 Recorded Normal [facility] Comment on above: Result Comment: Elec tronically Signed By: BRENNON JAMESON, Sandrita Mays\Date and Time Signed: 06/04/23 09:37 EDT Cytology Cervical or vaginal smear or scraping studyon 06-01-2023 [facility] Operative Reporton 4 Operative Report [id number]#1 .00TIFF Normal [facility] RAD - MISCon 05-14-2023 RAD - MISC [id number]#1 .00TIFF Normal [facility] RAD - MISC [id number]#1 .00TIFF Normal [facility] RAD - MISC [id number]#1 .00TIFF Normal [facility] ECG 12-Leadon 05-11-2023 ECG 12-Lead [id number]#1 .00TIFF Normal [facility] MR Breast - bilateral WO and W contrast Ashwin 05-08-2023 MR BREAST BILAT W WO CONT W CAD BREAST MRI OF BOTH BREASTS- WITH CAD: 05/08/2023 CLINICAL: Preoperative Staging, Right breast cancer abnormal right axillary, internal mammary and subpectoral lymph nodes on recent PET /CT (done at [facility]) PET report also described other foci of increased uptake in the subareolar right breast consistent with other foci of carcinoma images are NOT available for comparison and no size of these foci of uptake was provided. Comparison is made to exams dated: 03/06/2023 mammogram, 03/20/2023 mammogram, 03/20/2023 ultrasound, 03/26/2023 ultrasound biopsy, 03/20/2023 ultrasound biopsy, and 03/26/2023 mammogram - [facility]. CONTRAST VOLUME ADMINISTERED: 10 mL Gadavist intravenously. CONTRAST DISCARDED: 0 mL Gadavist TECHNICAL: All images are generated with the 3Scan's 1.5T MRI employing 8 channel dedicated breast coils (1mm slice thickness with a .2mm gap). This machine employs a specialized trasmit-receive coil. Three-dimensional, high resolution fat suppressed T1 weighted images were obtained prior to, immediately following, and after a delay relative to gadolinium contrast administration. A precontrast T2 weighted image was also acquired. 3D image and subtraction processing was performed using zintin software. The images were interpreted using image [...] nodes on recent PET /CT (done at [facility]) PET report also described other foci of increased uptake in the subareolar right breast consistent with other foci of carcinoma images are NOT available for comparison and no size of these foci of uptake was provided. Comparison is made to exams dated: 03/06/2023 mammogram, 03/20/2023 mammogram, 03/20/2023 ultrasound, 03/26/2023 ultrasound biopsy, 03/20/2023 ultrasound biopsy, and 03/26/2023 mammogram - [facility]. CONTRAST VOLUME ADMINISTERED: 10 mL Gadavist intravenously. CONTRAST DISCARDED: 0 mL Gadavist TECHNICAL: All images are generated with the NeGoBuY's 1.5T MRI employing 8 channel dedicated breast coils (1mm slice thickness with a .2mm gap). This machine employs a specialized trasmit-receive coil. Three-dimensional, high resolution fat suppressed T1 weighted images were obtained prior to, immediately following, and after a delay relative to gadolinium contrast administration. A precontrast T2 weighted image was also acquired. 3D image and subtraction processing was performed using zintin software. The images were interpreted using image [...] MRI BI-RADS: 6: Known Biopsy Proven Malignancy [facility] Radiology Study observation (narrative) [facility] MR Breast - bilateral WO and W contrast IVOrdered By: Rosemary Gasca on 05-08-2023 [facility] Work Phone: Surgical Pathologyon 024 Surgical Pathology Normal [facility] Comment on above: Result Comment: [facility] [address] [place] [address] Surgical Pathology Consultation ADDENDUM AR Patient Name:IKE FLANNERY:1970 (Age: 52)Gender:FTaken:05/08/2023eported:05/11/2023hysician(s):Mesha He MD ([phone])Copy To:John Miller MD [facility] HospitalwlaAccession #:[id number]. Rec. #:[id number]: #[id number] Final Pathologic Diagnosis Right axilla lymph node, ultrasound-guided needle core biopsy: METASTATIC MAMMARY CARCINOMA. Note: ER, AR and HER2 studies are pending Report Electronically [...] and Drug Administration (FDA) cleared (test/vendor): Confirm/ Mcdonald, Primary Antibody: SP1 Progesterone Receptor: FDA cleared (test/vendor): Confirm/ Mcdonald, Primary Antibody: 1E2 HER2: FDA approved (test/vendor): Pathway/ Mcdonald, Primary Antibody: 4B5 Detection System (ER, PgR and/or HER2): Mcdonald ultraView [place] DAB Detection Kit (indirect biotin-free detection) Scoring [...] and Progesterone receptor Testing in Breast Cancer; [place] Society of Clinical Oncology/College of [place] Pathologists Guideline Update. Arch Pathol Lab Med. doi:10.5858/arpa.6681-2500-SB. 2. Bacilio SIEGEL, Humberto TAVARES, Micaela SOTO, et al. Human Epidermal Growth Factor Receptor 2 Testing in Breast Cancer; [place] Society of Clinical Oncology/College of [place] Pathologist Clinical Practice Guideline Focused Update. Arch Pathol Lab Med. doi: 10.5858/arpa.8938-4273-VV. Electronically Signed Out Abhilash Marquez M.D. Interpretation performed at [facility], [address] [place] [address], License number: [id number]. Clinical History Description: Right axilla tissue. Biopsy procedure: ultrasound; Target: lymph node; Laterality: right axilla; Location: right axilla; BI-RAD: 5; Suspect: lymph node mets. Gross Description Received in formalin labeled ROBERT right axilla tissue are 5 pale buckley to yellow-mahmood fibrofatty needle core biopsy segments, ranging from 1 cm to 2.2 cm. The cores are submitted in cassettes A-B. Fixation Time: Tissue removed from patient: 1322 Time specimen placed in formalin: 1326 Cold ischemic time: 4 minutes Total fixation time: 31 hours (2,ns,W96-30552, m6) . /05/08/2023EAK Specimen(s) Received Right axilla Fee Codes(s): 1; 37418, 98208-RP, 76889-XK, 53687 Insurance Correspondenceon 0 05-04-2023 Insurance Correspondence [id number]#1 .00TIFF [facility] Consent for Procedure/Surger yon 04-14-2023 Consent for Procedure/Surgery [id number]#1 .00TIFF [facility] Ambulatory Visit Summaryon 0 04-10-2023 Ambulatory Visit Summary IKE FLANNERY :1970 Visit Date:04/10/2023 Ambulatory Visit Instructions Your Care Team Attending Physician - BRENNON JAMESON, Sandrita Garcia Primary Care Physician - RANDY CALLE DO [...] for choosing us for your care. Normal [facility] Consultation Noteon 04-10-19 24 Consultation Note [id number]#1 .00TIFF Normal [facility] Lab Reportson 04-10-2023 Lab Reports [id number]#1 .00TIFF Normal [facility] Surgical Pathologyon 024 Surgical Pathology Normal [facility] Comment on above: Result Comment: [facility] [address] [place] [address] Surgical Pathology Consultation Patient Name:IKE FLANNERY ADOB:1970 (Age: 52)Gender:FTaken:4Reported:04/21/2023hysician(s):Mesha He MD ([phone])Copy To: Rec. #:[id number]: #[id number] Final Pathologic Diagnosis Right breast, 4:00 mass , core needle biopsy ([place], [place]; [id number], 03/26/2023): - INVASIVE MAMMARY CARCINOMA, [...] Positive (12-15% of nuclear staining, weak staining); AR: Negative; HER2: Negative (0% of cells with uniform intense complete membrane staining). Internal controls for the biomarkers are present and stain as expected. Intradepartmental consultation has been completed on this case by a second pathologist who concurs with the above diagnosis. Report Electronically Signed Out eak/04/21/2023Chayo Wu MD Interpretation [place] [address], License number: [id number]. Clinical History Invasive ductal carcinoma. Gross Description Received are 10 prepared slides and 1 block labeled [id number] from [facility], that are accompanied by the contributing pathologist???s report that bears this patient???s name and the accession number as it appears on the slides. EAK Specimen(s) Received Consult case from [facility], 10 slides and 1 block labeled [id number] Fee Codes(s): 1; 21199 Outside Mammographyon 2023 Outside Mammography [id number]#1 .00TIFF Normal [facility] Pathology Noteon 04-07-2023 Pathology Note [id number]#1 .00TIFF Normal [facility] RAD - Ultrasound Reporton RAD - Ultrasound Report [id number]#1 .00TIFF Normal [facility] BMPon 04-06-2023 Anion gap [Moles/Vol] 10 mmol/L Normal 6-16 Fis her [facility] Comment on above: Performed By: #### 2 606168, [id number] ####[facility] [address] [place] [address] BUN/Creat Ratio 18 No Units Normal 10-20 [facility] Comment on above: Performed By: #### 2 525231, [id number] ####[facility] [address] [place] [address] Calcium [Mass/Vol] 10.5 mg/dL Normal 8.9-11.1 [facility] Comment on above: Performed By: #### 2 023110, [id number] ####[facility] [address] [place] [address] Chloride [Moles/Vol] 101 mmol/L Normal 101-111 [facility] Comment on above: Performed By: #### 2 215659, [id number] ####[facility] [address] [place] [address] CO2 [Moles/Vol] 32 mmol/L High 21-31 [facility] Comment on above: Performed By: #### 2 682544, [id number] ####[facility] [address] [place] [address] Creatinine [Mass/Vol] 1.0 mg/dL Normal 0.5-1.3 [facility] Comment on above: Performed By: #### 2 083503, [id number] ####[facility] [address] [place] [address] Glucose [Mass/Vol] 90 mg/dL Normal 55-199 [facility] Comment on above: Performed By: #### 2 268784, [id number] ####[facility] [address] [place] [address] Potassium [Moles/Vol] 3.4 mmol/L Low 3.5-5.3 [facility] Comment on above: Performed By: #### 2 123717, [id number] ####[facility] [address] [place] [address] Sodium [Moles/Vol] 140 mmol/L Normal 135-145 [facility] Comment on above: Performed By: #### 2 482530, [id number] ####[facility] [address] [place] [address] Urea nitrogen [Mass/Vol] 18 mg/dL Normal 5-21 [facility] Comment on above: Performed By: #### 2 032100, [id number] ####[facility] [address] [place] [address] CHEMISTRYOrdered By: SYSTEM SYSTEM on 04-06-2023 Anion [...] for Treatmenton Consent for Treatment [id number]#1 .00TIFF Normal [facility] Physician Orderon 04-06-2023 Physician Order [id number]# 1.00TIFF Normal [facility] eGFRon 04-06-2023 eGFR 68 mL/min/1.73 m2 Normal >=59 [facility] Comment on above: Order Comment: Order added by Discern Expert. Performed By: #### 2 799325, [id number] ####[facility] [address] [place] [address] [place] 03-26-2023 L Specimen: [id number] Received: 03/26/23 Status: JENNMagui Lentz Num: [id number] Spec Type: Surgical Subm Dr: Leidy Lopez Tissues: A BREAST CORE NO CALCS (RT BREAST MASS 4:00) Procedures: HE/2, Gross/Micro L4, CK5 6, E CADHERIN, ER, p63, AR Age/ Patient Sex Location Account Attending Physician Ike Flannery 52/F [place] [id number] Richie Hanna, COMMUNITY OUTREACH DIRECTOR ADVERTISING SALES CONSULTANT-C SPEC NUM: [id number] RECD: 03/26/23 STATUS: EUGENIO LENTZ NUM: [id number] AMY: 03/26/23 DR: Leidy Lopez ENTERED: 03/26/[address] [facility] [address]: Suzanne,Edwin SPEC TYPE: Surgical DEPT: DEBORA ROSALES ORDERED: HE/2, Gross/Micro L4, CK5 6, E CADHERIN, ER, p63, AR ORDERED: HE/2, Gross/Micro L4, CK5 6, E CADHERIN, ER, p63, AR Supplemental Report Addendum 1 Entered: 04/02/233 Supplemental for findings of HER2 by immunohistochemistry from [employer]: -Negative, Score 0 Addendum Signed (signature on file) Elvis Mcgregor MD 04/02/23 1349 -------- Pathological Diagnosis Right breast 4:00 mass, biopsy: Invasive Ductal Carcinoma Grade 3 (combined Score Of 8/9). Histologic Grade: Grade 3 Glandular/tubular Differentiation: 3 Nuclear Pleomorphism: 3 Mitotic Rate: 2 Overall Score: 8 Breast Hormone Profile -------- Specimen: [id number] Received: 03/26/23 Status: EUGENIO De Santiagoradha Num: [id number] Spec Type: Surgical Subm Dr: Leidy Lopez Tissues: A BREAST CORE NO CALCS (RT BREAST MASS 4:00) Procedures: HE/2, Gross/Micro L4, CK5 6, E CADHERIN, ER, p63, AR -------- Patient: Ike Flannery [id number] (Continued) -------- Specimen: [id number] Received: 03/26/23 (Continued) Pathological Diagnosis (Continued) Signed (signature on file) Lazarus Chiang MD 03/31/23 1747 -------- Specimen: [id number] Received: 03/26/23 Status: EUGENIO Lentz Num: [id number] Spec Type: Surgical Subm Dr: Leidy Lopez Tissues: A BREAST CORE NO CALCS (RT BREAST MASS 4:00) Procedures: HE/2, Gross/Micro L4, CK5 6, E CADHERIN, ER, p63, AR -------- Patient: Ike Flannery [id number] (Continued) -------- Specimen: [id number] Received: 03/26/23 (Continued) Pathological Diagnosis (Continued) ER: Weakly Positive AR: Negative Her2: Pending Clinical Information Mass Gross [...] 0.03 Formalin Fixation Time: 14.78 CPT Codes 34335 -------- -------- Specimen: [id number] Received: 03/26/23 Status: EUGENIO Lentz Num: [id number] Spec Type: Surgical Subm Dr: Leidy Lopez Tissues: A BREAST CORE NO CALCS (RT BREAST MASS 4:00) Procedures: HE/2, Gross/Micro L4, CK5 6, E CADHERIN, ER, p63, AR -------- Patient: Ike Flannery [id number] (Continued) -------- Signed (signature on file) Lazarus Chiang MD 03/31/23 1747 Normal [facility] BMPon 03-20-2023 Anion gap [Moles/Vol] 9 mmol/L Normal 6-16 [facility] Comment on above: Performed By: #### 1 8403559, [id number] ####[facility] [address] [place] [address] BUN/Creat Ratio 26 No Units High 10-20 [facility] Comment on above: Performed By: #### 1 1039400, [id number] ####[facility] [address] [place] [address] Calcium [Mass/Vol] 9.4 mg/dL Normal 8.9-11.1 [facility] Comment on above: Performed By: #### 1 6324535, [id number] ####[facility] [address] [place] [address] Chloride [Moles/Vol] 103 mmol/L Normal 101-111 [facility] [facility] Comment on above: Performed By: #### 1 [id number], [id number] ####[facility] [address] [place] [address] CO2 [Moles/Vol] 32 mmol/L High 21-31 [facility] Comment on above: Performed By: #### 1 [id number], [id number] ####[facility] [address] [place] [address] Creatinine [Mass/Vol] 0.7 mg/dL Normal 0.5-1.3 [facility] Comment on above: Performed By: #### 1 [id number], [id number] ####[facility] [address] [place] [address] Glucose [Mass/Vol] 88 mg/dL Normal 55-199 [facility] Comment on above: Performed By: #### 1 [id number], [id number] ####[facility] [address] [place] [address] Potassium [Moles/Vol] 2.8 mmol/L Abnormal 3.5-5.3 [facility] Comment on above: Performed By: #### 1 [id number], [id number] ####[facility] [address] [place] [address] Sodium [Moles/Vol] 141 mmol/L Normal 135-145 [facility] Comment on above: Performed By: #### 1 [id number], [id number] ####[facility] [address] [place] [address] Urea nitrogen [Mass/Vol] 18 mg/dL Normal 5-21 [facility] Comment on above: Performed By: #### 1 [id number], [id number] ####[facility] [address] [place] [address] CHEMISTRYOrdered By: SYSTEM SYSTEM on 03-20-2023 Anion [...] Consent for Treatmenton 03-02 Consent for Treatment [id number]#1 .00TIFF Normal [facility] Physician Orderon 03-20-2023 Physician Order [id number]# 1.00TIFF Normal [facility] eGFRon 03-20-2023 eGFR 104 mL/min/1.73 m2 Normal >=59 [facility] Comment on above: Order Comment: Order added by Discern Expert. Performed By: #### 1 [id number], [id number] ####[facility] [address] [place] [address] [address] Cardiac Scoring Normal -[facility] 250 DO Work Phone: Office Visit (Cardiology)on 09-29-2022 Follow-up visit Diagnoses/Problems Assessed Hypertension (401.9) (I10) Edema (782.3) (R60.9) Class 1 obesity with body mass index (BMI) of 31.0 to 31.9 in adult (278.00,V85.31) (E66.9,Z68.31) Orders Class 1 obesity with body mass index (BMI) of 31.0 to 31.9 in adult Healthy Weight Tips; Status:Complete; Done: 34Bit7790 Edema, Hypertension Basic Metabolic Panel; Status:Active; Requested for:25Unv4780; CT Cardiac Scoring; Status:Active; Requested for:94Sep0880; Patient taking Metformin or Derivatives? : No [...] the office if new symptoms arise. Dr. Tyler 6 months Chief Complaint Blood pressure f/u : 'doing fine' IKE FLANNERY is being seen for a 3 month follow-up of hypertension. Patient presents the office ambulatory with steady gait. Last evaluated in clinic Dr. Tyler June 2022. At that time she was [...] and no PND. Vitals Vital Signs Recorded: 21Tcr3185 02:29PM Heart Rate76, L Radial Mldeizkv558, LUE, Sitting Apyqfojzw98, LUE, Sitting Height5 ft 11 in Nqqfdp691 lb BMI Oavbzmkgjg07.52 kg/m2 BSA Calculated2.22 Tobacco Useb) No PHQ-2 #1. Over the last 2 weeks have you felt down, depressed or hopeless? (If yes, answer PHQ-9 below)No PHQ-2 #2. Over the last 2 weeks have you felt little inter (more content not included)... Normal [facility] Tobacco Screening.on 023 Adult depression screening assessment No [facility] 250 DO Work Phone: Fall risk assessment c) Not medically indicated [facility] 250 DO Work Phone: Tobacco use status CP b) No [facility] 250 DO Work Phone: Tobacco Screening.on 023 Tobacco use status CPHS b) No [facility] [employer] 250 DO Work Phone: CHEMISTRYOrdered By: SYSTEM SYSTEM on 08-15-2022 Anion gap [Moles/Vol] 10 mmol/L Normal 6 - 16 mEq/L [facility] Calcium [Mass/Vol] 9.7 mg/dL Normal 8.9 - 11. 1 mg/dL [facility] Chloride [Moles/Vol] 102 mmol/L Normal 101 - 1 11 mmol/L [facility] Creatinine [Mass/Vol] 0.7 mg/dL Normal 0.5 - 1.3 mg/dL [facility] Remisol GFR/1.73 sq M.predicted among non-blacks MDRD (S/P/Bld) [Vol rate/Area] 105 mL/min/1.73 m2 Normal >=59mL/min /1.73 m2 [facility] Chem S Glucose [Mass/Vol] 92 mg/dL Normal 55 - 199 mg/dL [facility]isol Potassium [Moles/Vol] 2.9 mmol/L Low 3.5 - 5.3 mmol/L [facility]isol Sodium [Moles/Vol] 138 mmol/L Normal 135 - 145 mmol/L [facility]isol Urea nitrogen [Mass/Vol] 15 mg/dL Normal 5 - 21 mg/dL [facility] Remisol Urea nitrogen/Creatinine [Mass ratio] 21 mg/mg High 10 - 20 [facility] Remisol Laboratory - Chemistry and C hemistry - challengeOrdered By: SYSTEM SYSTEM on 08-15-2022 CO2 [Moles/Vol] 29 mmol/L Normal 21-31 [facility] Niko yuliet Laboratory - Chemistry and C hemistry - challengeOrdered By: Sandrita Bettencourt on 08-15-2022 Natriuretic peptide B (Bld) [Mass/Vol] 23 pg/mL Normal 5-80 [facility] HemeManSS No Panel Informationon 08-15 105 {mL/min/1.73_m2} Normal >=59 [facility] 250 DO Work Phone: Comment on above: Chronic kidney disea se could be indicated at eGFR's of less than 60 mL/min/1.73m2. Kidney failure is indicated at less than 15 mL/min/1.73m2. 10 {mEq/L} Normal 6-16 [facility] 250 DO Work Phone: 102 mmol/L Normal 101-111 [facility] 250 DO Work Phone: 2.9 mmol/L below low threshold 3.5-5.3 [facility] 250 DO Work Phone: 138 mmol/L Normal 135-145 [facility] 250 DO Work Phone: 9.7 mg/dL Normal 8.9-11.1 [facility] DO Work Phone: 21 {No_Units} above high threshold 10-20 [facility] DO Work Phone: 0.7 mg/dL Normal 0.5-1.3 [facility] DO Work Phone: 15 mg/dL Normal 5-21 [facility] DO Work Phone: 92 mg/dL Normal 55-199 [facility] DO Work Phone: Comment on above: If this glucose resu lt represents a fasting glucose, interpretation should refer to the following reference range: 55-99 mg/dL Pass Normal [facility] DO Work Phone: Office Visit (Cardiology)on 07-21-2022 [...] a smoker Tobacco Use Screening; Status:Complete; Done: 75Mak3517 Tobacco Use Screening; Status:Complete; Done: 50Mdv5710 Unlinked Stop: Coreg 25 MG Oral Tablet [...] up in 3 months Chief Complaint IKE FLANNERY is being seen for an initial evaluation [...] Vital Signs Recorded: 21Jul2022 08:15AMRecorded: 21Jul2022 08:14AM Aisqvbbz502, RUE, Rostgel115, LUE, Sitting Woiqlzgnr69, RUE, Jveatvv77, LUE, Sitting Heart Rate59, Apical Height5 ft 11 in Hovvnx792 lb BMI Bslxvnxcnu11.82 kg/m2 BSA Calculated2.2 Tobacco Useb) No PHQ-2 [...] Neck: ne (more content not included)... Normal [facility] Tobacco Screening.on 023 Adult depression screening assessment No [facility] 250 DO Work Phone: Fall risk assessment a) No falls within the last year [facility] 250 DO Work Phone: Tobacco use status CPHS b) No [facility] 250 DO Work Phone: PAP ACOG PANEL 2: 30 to 65on 01-03-2022 . . Normal [facility] Comment on above: Result Comment: Perf ormed at: WB Performed By: #### 4 [id number] #### [facility] [address] [place] [address] Dr. Daniel Mcgregor Age Gdln ACOG Testing 30-65 [facility] Comment on above: Performed By: #### 4 [id number] #### [facility] [address] [place] [address] Dr. Daniel Mcgregor DIAGNOSIS: Comment Normal [facility] Comment on above: Result Comment: NEGA TIVE FOR INTRAEPITHELIAL LESION OR MALIGNANCY. Performed at: WB Performed By: #### 4 [id number] #### [facility] [address] [place] [address] Dr. Daniel Mcgregor HPV Aptima Negative Normal Negative [facility] Comment on above: Result Comment: This nucleic acid amplification test detects fourteen high-risk HPV types (16,18,31,33,35,39,45,51,52,56,58,59,66,68) without differentiation. Performed at: =G Performed By: #### 4 [id number] #### [facility] [address] [place] [address] Dr. Daniel Mcgregor HPV Genotype Reflex Comment Normal [facility] Comment on above: Result Comment: Crit eria not met, HPV Genotype not performed. Performed at: WB Performed By: #### 4 [id number] #### [facility] [address] [place] [address] Dr. Daniel Mcgregor Methodology: Comment Normal [facility] Comment on above: Result Comment: This liquid based ThinPrep(R) pap test was screened with the use of an image guided system. Performed at: WB Performed By: #### 4 [id number] #### [facility] [address] [place] [address] Dr. Daniel Mcgregor Note: Comment Normal [facility] Comment on above: Result Comment: The Pap smear is a screening test designed to aid in the detection of premalignant and malignant conditions of the uterine cervix. It is not a diagnostic procedure and should not be used as the sole means of detecting cervical cancer. Both false-positive and false-negative reports do occur. . Performed at: WB Performed By: #### 4 [id number] #### [facility] [address] [address] [address] Daniel Mcgregor Performed by: Comment Normal [facility] Comment on above: Result Comment: Roxann Ambriz, Field Recorder (ASCP) Performed at: WB Performed By: #### 4 [id number] #### [facility] [address] [address] [address] Daniel Mcgregor Specimen adequacy: Comment Normal [facility] Comment on above: Result Comment: Sati sfactory for evaluation. No endocervical component is identified. Performed at: WB Performed By: #### 4 [id number] #### [facility] [address] [address] [address] Daniel Mcgregor MG MAMM SCREEN 3D VONNIE CADon 12-13-2021 MG MAMM SCREEN 3D VONNIE CAD Patient: IKE FLANNERY Exam Date: 12/13/2021 : 1970 Gender:F Ordering : DR KAYE MANUEL Admission #: [id number] Family : DR DAYANA BASHIR . Order #: [id number] CLICK HERE TO VIEW EXAM RADIOLOGY REPORT [...] Treatments None Family Cancers None LOCATION: [facility] BREAST COMPOSITION: Heterogeneously dense,which may obscure [...] MD on 12/13/2021 at 08:39 Normal [facility] COVID Quick Testingon 2021 Result Negative [email or web address] Other BASIC METABOLIC PANELon - BUN/CREATININE RATIO NOT APPLICABLE Normal 6-22 [facility] Comment on above: Performed By: #### 5 616, 59517, 33188 #### [facility] of [address], [address] [place] [address] Piped Buttonhole Machine Operator: Heraclio Miller MD Calcium [Mass/Vol] 9.7 mg/dL Normal 8.6-10.4 [facility] Comment on above: Performed By: #### 5 616, 41902, 44011 #### [facility] [place] [address] [employer] Machine Operator: Heraclio Miller MD Chloride [Moles/Vol] 103 mmol/L Normal 98-110 [facility] Comment on above: Performed By: #### 5 616, 73801, 09947 #### [facility] [address], [address] [place] [address] [employer]ed Buttonhole Machine Operator: Heraclio Miller MD CO2 [Moles/Vol] 30 mmol/L Normal 20-32 [facility] Comment on above: Performed By: #### 5 616, 34666, 65009 #### [facility] [place] [address] [employer] Machine Operator: Heraclio Miller MD Creatinine [Mass/Vol] 0.77 mg/dL Normal 0.50-1.[address] [facility] Comment on above: Performed By: #### 5 616, 77748, 52912 #### [facility] of [place] [address] [employer] Machine Operator: Heraclio Miller MD GFR/1.73 sq M.predicted among non-blacks MDRD (S/P/Bld) [Vol rate/Area] 94 mL/min/{1.73_m2} Normal > OR = 60 [facility] Comment on above: Result Comment: The eGFR is based on the CKD-EPI 2021 equation. To calculate the new eGFR from a previous Creatinine or Cystatin C result, go to https://www.kidney.org/professionals/ kdoqi/gfr%5Fcalculator Performed By: #### 5 616, 68925, 41598 #### [facility] [address], [address] [place] [address] [employer] Button[employer] Machine Operator: Heraclio Miller MD Glucose [Mass/Vol] 91 mg/dL Normal 65-99 [facility] Comment on above: Result Comment: Fasting reference interval Performed By: #### 5 616, 68068, #### [facility] [place] [address] [employer] Machine Operator: Heraclio Miller MD Potassium [Moles/Vol] 3.4 mmol/L Low 3.5-5.[address] [facility] Comment on above: Performed By: #### 5 616, , #### [facility] [address], [address] [place] [address] P[employer]ed Buttonhole Machine Operator: Heraclio Millre MD Sodium [Moles/Vol] 140 mmol/L Normal 135-146 [facility] Comment on above: Performed By: #### 5 616, , 83828 #### [facility] [place] [address] [employer] Machine Operator: Heraclio Miller MD Urea nitrogen [Mass/Vol] 11 mg/dL Normal 7-25 [facility] Comment on above: Performed By: #### 5 616, 69868, 92394 #### [facility] [address], [address] [place] [address] Piped Buttonhole Machine Operator: Heraclio Miller MD IRON, TIBC AND FERRITIN PANE [place] 09-21-2021 % SATURATION 10 % (calc) Low 16-45 [facility] Comment on above: Order Comment: FASTI NG:YES FASTING: YES Performed By: #### 5 616, 13775, #### [facility] [address], [address] [place] [address] Piped Buttonhole Machine Operator: Heraclio Miller MD Ferritin [Mass/Vol] 11 ng/mL Low 16-232 [facility] Comment on above: Order Comment: FASTI NG:YES FASTING: YES Performed By: #### 5 616, 62188, 81442 #### [facility] [address], [address] [place] [address] Piped Buttonhole Machine Operator: Heraclio Miller MD IRON BINDING CAPACITY 542 mcg/dL (calc) High 250-450 [facility] Comment on above: Order Comment: FASTI NG:YES FASTING: YES Performed By: #### 5 616, 24218, 50156 #### [facility] [place] [address] P[employer]ed Button[employer] Machine Operator: Heraclio Miller MD IRON, TOTAL 54 mcg/dL Normal 45-160 [facility] Comment on above: Order Comment: FASTI NG:YES FASTING: YES Performed By: #### 5 616, 66860, 93156 #### [facility] [address], [address] [place] [address] Piped Buttonhole Machine Operator: Heraclio Miller MD TSH W/REFLEX TO FT4on 2021 TSH W/REFLEX TO FT4 3.86 mIU/L Normal [facility] Comment on above: Result Comment: Refe rence Range > or = 20 Years 0.40-4.50 Ranges First trimester 0.26-2.66 Second trimester 0.55-2.73 Third trimester 0.43-2.91 Performed By: #### 5 616, 85891, 75636 #### [facility] [place] [address] P[employer] Button[employer] Machine Operator: Heraclio Miller MD Consent Formson 09-09-2021 Consent Forms [id number]#1 .00OTGTIFF [facility] Coding Summaryon 09-03-2021 Coding Summary HTMLBase 64 AnsqqrhzWJs0cHs+PGhlY WQ+KM3WMEHuM82idPBofG 0YY4qHRG6TQNJSOBHPQY5 RGS3azMT0RLwzV2AdneUy EcappMHyAE32SLv6VJM5p ZfuFAbabV1fyQPxY3l0Sy QxDL15bA77ONdxZCXtYvO 3LjZpbjsgbWFy V2apGhTapCNkPfq+PHRhY mxlIHdpZHRoPScxMDAlJy UayLlyGP2rBh6nRKUyXUY vbGxhcHNlOiBj b0uxJGGdRQpqXT4duVzqA 6BfgYL1HQOji1k9Gz54tT I+DLPrSBZ0yXlnYQeyt55 9ElBwy0weRKK6 iCRuMEniTJK1J88wi3L3R ZJhOLNsJKN7eNV2lH0twV zkoqcgH8SoxTMnLwF8EDU 9nODzlV7qdYzh evfrqB7rCbh+C73DTI8JG SXPRV5BSiz0F6RaCnxevY I+AP33ISXnND96uXBjjFO hn9nujBb6PnHl MDGnNCT0vUeeDAzwa2BlJ ICnW82csNDak6V3OETawA iysKWcNaLzkCK2rS1oJQq blehwe8rnddms Fumxt8rvmb68cA21F25wI BgbFOSsQDK2XGYwFMGnzV datz4zdK2nLc7+IAtzt5b li7rzcYq4QfDj MQUgebLjmVkdQYN3z4SpX e83P9LubFfug5TtFdv6nq 59eLHmf2M2xOY3RGbrLGE znY5fWRntCcX3 LBJwFhLwaQ35bCFtQXgmM c4maFpfnMdwPR9pQPNovz izAAPiaM6oBNYijBNkmVy xRL7rMNLvecmt e844AyNuETE6EQVpcZJsM 4OltP1pBpFqYVCzDGLhJ6 QmrJMmZVkwV909XOgkCcX 9KTGcnbDtF8Ev XRCuyEbxTvJ5r9Y4Lx1Kl 9PhvcycHSM8QXqyCUO8Kf N2IdEtVfO7J5YmVlo3KVP jfDwhAC9xK5Xh YPFescfswyeobME4CMFnD TFwkE39oHUzTThkMb1nn5 F1k567LEVpVNJrgJ10Wb3 udDogMTBwdCBU xQ3girkps6lzmtizPjAmM NDjKJu2WPx7DVQsxGbyVr TbKFO6CeU6YJQ5nHFvmD9 owAvyxuoniB3r Oyc+D97woP3wJYU7ISG6l anvFLJczwKxNK62BT12A5 RyPjwvdGFibGU+PGRpdiB tmOtiAB7jHzDy t9wrh3BiOWnjO7ClIIFtM FhaOdy3VZUtJXL6wSI2oI 1dKDHgKKrwn7N5hHZ2U5B ameHkqt7xo8pt BCJsQTthG72eoZZfb6P4A PThiGN6SZSxbGvkDvZbaN 93Oyc+BKLwuBrma1SzFvc dc7byi2iuaAj9 TxKnVDXlyoZfoRhnMSQ1o 2DsRy68M58eGGhyYOApBH BhCFCvXRDmfHmhia2fvK2 wIi8+PGNvbCB3 gEH3jP8kVBLeRhZ2GRjxQ 188CvKjqFQiSpkkg8ppr8 lxoUv3RcXaFEUcalWrdCj kVKN7z3DpQz89 I25aVPnhQESpNYVlHQEoT QMrkYaovd1hjG7dSr1+PC 1dc8cwts35gR42kAY+PHR uQQK0mWulEPdq REUecX9gNTdtCkA5FYQgF bTrrO73wKNhIYlmZv6ueA thlCrxSQ6cBYIskevqf60 7CuHjo1zcRTUh oFBhVRbvUHC2K45pq1F4L PMjSEPdDHO6uIT5pA8lrA lnbjogbGVmdDsgdmVydGl lIPoxRMajI279 IHRvcDsnPlBhdGllbnQgT zKzWKr5T5GfCiq1LSVtpI kmMG4gxHDnPNwzIk0zqGa wdEnyHR4qWWTe kyajk147OsBkg2nfDNKus NJsCZqlQQP1Y73wd8H5JL YsZXRmRFA5kFE3uL4bwQx nbjogbGVmdDsg qeAwhNkwQCouSHtxW421H HRvcDsnPkJpcnRoIERhdG I6RH45YD32pXRbw3C6lIN 6U1WfMTGvrsha wnwxeUK5UPMbCEBzdN53T y7aqWijEq2qKCYlRAC5AH TfiXQuM5IrjA8rGsPlSIE mAKVeX2CqhFYt VCuiP768NNxwEhT0ADZmj oFvK6ElVGOhfYcsUiN9n3 I4Pw1SG2G4DR10WV75jPQ xx6F3dBM4K5Nz ZRPtkrmsbhrcrCB9QGJrN HLnsL82Mi9gtIqyXu5nRH FpHFN0NNJqbLQqV6FpiZ1 yOiAjMDAwMDAw T6IwgIHfKByiI658DTqnW uO9NTLbvbNiS9LhEOZhuU dnHqV4j2G1Hl1ZPUw4YX4 8LK03zLMjj0N0 wUQ7V4AkWVEedtubrzisy RH7KJSdCVVibO08Oq8ctW mqAq5xYCErIDJ2PQFfmUW iU2LcvW0iKcPg NYQbCAFaU0YxjFDxVVqwL 239OAxuFxR8MSVubkFwZ9 JrQXXteYjoQmR9x4O4Pw2 MTKScWF55TYK8 aGC9YI88FQ01L6FqUerrw GFibGU+PHRhYmxlIHdpZH RoPScxMDAlJyBzdHlsZT0 rEy1xDXQnSDFy zLmzmNVmEeYnn8maIAAoE NqyEF2ycRjhU7FemOK3UQ Vnb9n7Er52G02iY4WmuHY +RFMkzSU6wKV0 jL8jGzGkJnM0DCmhH392P tRlfEOnNgeyd7zhe5yxrO u8VcV1JPWsaeNdxAeiSXU 8c8EfIy63S60r IHdpZHRoPSIxNSUiIHZhb Tjmfp0krL0hQh8+PGNvbC G6gYY4gZ0tTaVhMbJ7VHq gT628XaXtlJUk Fvsvl9uib6giwTu9DmMyO GFaneJmmUnaFNE6k8WdEx 22B4OrlUbsg7ZtPsg1xz6 1qOCxd5G0hRT1 Q9CeLJNhmjdjoIUlbYoeA N0uXGKgtoudOTUafL6hRD QvS4u4YxYmUhR2UMecD3T yumB7FXHqoFVu PThnVSC4N17my0A1JPRnN XBbIPY9yDL2gY8aoSowgr ogbGVmdDsgdmVydGljYWw rHOaiF327JWEa kSmaVETopI0vRMWgbBLly ItlKR0wMEYkbcgbQliHVQ 1BTiwgRUxJWkFCRVRIIEF OTjwvdGQ+PHRk DSP6mHavUStpYBSpoR6dR FZhF0n5NhGbDlY9BXjrP4 FhNABjhyttZi83uM7fFnN kZqW6DUalT2Fo rdF4YADkuBElFKplSAT4N 02ik3G3TBKbIHBhSHO1tX S1jP4orNbgijunaJAmxDa gdmVydGljYWwt GWmdR387IGXhzQzvQoX4T oRmBjH7MhI2Z9QtIlq2CF AanEyjMC8htRZjAGgnFm7 jlZfkxKltGW9j EDHxuynnDRGvvI2kGCFfw ASpfHadCR3eBDFkgodnm8 53ElBfXUQ0ZGNgfZQiL1Q izP6iAuAeJKFz VDFqF7XnoQItMDhtX975G CdrAuC6GQSvpbOpZ1MdDG MqhQjkGkL6w8E3Pd08UET ZZWFyczwvdGQ+ YCBpRZT5rVriDSeiGEAjq A7cUTSpX7k9SiWhSpV2NS hsY9KmDNMdbhuzIq46qF8 hCqMhLvB4SMte Z6ExzwU6EOSpdJHtWHphX HL0S19tw8E9MRPyGAPmAZ N6zWX0aO2qtKqeuwuhuJB mdDsgdmVydGlj YJpzPRwqT830EXVerDbiV kZFTUFMRTwvdGQ+PHRkIH Q4tNggPCqcDTSnsH5eEDL kL0g2LgJyBlY3 CKvqF8LjZNEzoycdBf37s P3cInEuLcN0ARklK4Gkzh U7VTTquXReGOjfBOY2Q98 if1F3KQLjPCHb OXK4wOJ7tJ6pkSzgcgdeh GVmdDsgdmVydGljYWwtYW tzT095MRTsfOqcZlDbsQV YbAIvSLB5NW49 IA97O1IvAjsjtKNuxAA+P HRhYmxlIHdpZHRoPScxMD PkWnQstIavHH3iTb3uKED yLWNvbGxhcHNl XsMdr7owBQYiNQbdYY6fa KjkZ3OpvPS0RMJfr2f9Nf 28N90tU0RywRK+PGNvbCB 9oSG2qU7nTvXh SbU4EFzkZ888JxAreNKxM ecjb9cgu3uuwMh9QyQzIC LeitCekGbzCXR4x3OcIs1 4F79aUDpdNWDm CBItDKXmESGdrSdqgb1ie G9wIi8+CJTduHQ4cZX9hJ 7iEwVlQiI7ABhxX696MqT guUTaJnydM86u R9KdpPP+CHSaJis2JAIbo WqfKW6jyUBhBIriJi0vWB X5LqNlWzBrKNlbA8YbQXA pbmctcmlnaHQ6 EUDkKWRfiT10Fz9ckOcuJ o3eYKFpFQR9OLTwqVCtO3 PjoP5fWbBiKALlIYMsA2F hySEqFGeiC060 IJvzCaX4DJGyunXvC8GtN HRrwYonVjX4j5X9Qa5QqC oqiOPzBS1tQeJnBTp8A4P wCdn5FRDzzIst KV1cpGXvSTneWt7pdBduq CtiTI2zIIUfeuzqf475Fn Oif9dlLJMcaITsYOszAZN 9H90ki4F6OGWz FXJjEDO7hIF6zI4ahTvld jogbGVmdDsgdmVydGljYW ehSKdiB242FXAgmOowElF VLoy8X3IuTmx7 XKBtcPhtYF4uwRWzAMhwG v4lmHuyhJdiRO0rSHFcmg ewc208WgOro3oaJCAnkMX fVKiaAAK3Y86n b6K8SOHeUYCrXWD5rIS0m W4eaZjkjazjdHJqvNeice SzdRdzHFufLQqdI523MMQ ddFuzOe2HAbe0 A2YdNzy5AWRthIrwZB7me MMwUIyrEo5duCqqcVwbIT 7tPFIzvudel349IxVvg5f kIDEwcHQgVGlt VDZ8Z84yf1B6PMLiLRNjJ ML2oKK2tB5pvBkxgaibnL VmdDsgdmVydGljYWwtYWx sO601VHJhoPxl PlBheWVyOjwvdGQ+PC90c x04K1VrHrvoCay1PUYlSC V7wTZ8eV9sREIwCPdhe3M 4qUC5P5WimjPy ci1 (more content not included)... [facility] Coding Queryon 08-27-2021 Coding Query Documentation [...] Oglesby DO [Transcribed on: 08/27/2021 07:54 EDT] [facility] Consent Formson 08-27-2021 Consent Forms [id number] .[id number] [facility] Telemetry Stripson Telemetry Strips [id number] .00OTGTIFF [facility] Anesthesia Noteon 08-26-2021 Anesthesia Note Patient: IKE FLANNERY Age: 50 years Sex: FEMALE : 1970 Associated Diagnoses: None Author: Shanon Cadet MD Postoperative Information Anesthetic utilized: General. Assessment Anesthetic outcome No anesthetic complications noted. Plan Transfer/ Discharge: Patient can be discharged from PACU when criteria met. Condition good. [Electronically Signed on: 08/26/2021 14:58 EDT] Shanon Cadet MD [Verified on: 08/26/2021 14:58 EDT] Shanon Cadet MD [facility] Anesthesia Note Patient: IKE FLANNERY Age: 50 years Sex: FEMALE : 1970 [...] = 1 tab(s), PO, Daily Potassium Chloride (Emy-Vgpk-Art 10) 10 mEq oral tablet, extended release 10 mEq = 1 tab(s), PO, Daily traZODone 50 mg oral tablet 50 mg = 1 tab(s), PO, Once a day (at bedtime) Problem list (past medical history): All Problems Cardiac dysrhythmia / SNOMED CT 0253954245 / Confirmed HTN (hypertension) / SNOMED CT 2344284614 / Confirmed Histories Family History: No family history items have been selected or recorded. Procedure history: Arthroscopy of knee (482493534) on 01/21/2021 at 50 Years. Comments: 01/21/2021 8:41 Gino Pickering RN right Abdominal hysterectomy (586192642). Arthroscopy of knee (907768787). Lipoma (442817100). Comments: 01/04/2021 11:19 OSKAR - Milana Becker RN excision History of tonsillectomy (3138403999). ACL - Anterior cruciate ligament rupture (081627131). Comments: 08/12/2021 13:15 Gino Heller RN repair with spring Social History [...] Oriented. Review / Management Laboratory Results Plan [employer]#( A) physical status classification: Class II. Anesthetic Preoperative Plan Anesthesia: General. . Anesthetic plan, risks, benefits, and alternatives discussed with the patient and/or family. Patient verbalized understanding. Informed consent was given. Anesthetic technique: General anesthesia, Patient presented with diastolic HTN; this was also noted on her PST chart. Had a lengthy discussion with her regarding this. Her primary care ([employer]) recently changed her from Toprol to Coreg... Patient has reported no changes and has noted her diastolics have been above 100 for months . We discussed treating her with some labetolol here with the hope of moving forward today with her surgery. We also discussed putting a better longwall headgate operator plan in place regarding her hypertension. Her and her both seemed to express understanding. . [Electronically Signed on: 08/26/2021 13:29 EDT] Shanon Cadet MD [Verified on: 08/26/2021 13:29 EDT] FullShanon nunez MD [facility] Coding Summaryon 08-26-2021 Coding Summary HTMLBase 64 JminbxgrQEa9xUs+PGhlY WQ+DH8GUWAxY68tlYQwuX 4KC4cFYX0BEDGLXPOHFV1 ZEU9auDS1PSrpE9YztzWc HwctmHOdJO73OCy5KUJ8l YghMJqlmY3ydLUnB4q7Wm UuJG37dE50YNjcGFTgDvG 3LjZpbjsgbWFy B3wvWzLyiSSgUkz+PHRhY mxlIHdpZHRoPScxMDAlJy BmeFysCN7tHo6wFVRrOGL vbGxhcHNlOiBj p5uuSDEwWEwaEB0reHhfZ 8SmhTP5GZCrt3f8Zi54rL I+EEFzYFP3cKppZEkog10 5HbRvv2hhAGA3 iQZgJSvgWIC0L33lj3Y5D NGpVQAhTOF4cCN0eI6rgA gygvotX5GgtVYoVgC8VFF 8aDYzbV2hrSkb vltpkT0yBco+Y03FDY2KE RSUML1EZia6O4ArUcjamZ I+LC77PMLtWK30kFFktGS en3tzmWt1ZhOm PXDuBWF2nNppGVtfg0UqW TKhR19ddVSdp6M5CYAgwP hkoXMjVzVenXP5zS6wKGv tlaeor4ezfxuu Jbcdo8quyh11eP95H41yN VseCCVkJAR5QVNmTYKmlX kyst7iyU7gGx2+SIihk4p hm0xrqAr0JmQh ZHFhzlVzkMjsCBW4u3VmS s62T3YmvMujq4EhIjb6vt 11qERbz9H1qST1QIhyXDR icN4yZDsbYoN8 EBUuUnLegL81vVPwIIyaV n7xcLrwuNudQE5nHAWxru piISAbsK8kYOYqbJVoyMh aPJ8nMIHvuxaf i323ZeZjOMZ5JVDnoTFiS 9DewN6mRyGmPCAqTYWaP4 WxgJAdSKeqH778FMipYvE 1VKKsbrYsM2Tm WHZooEfuZrJ4n5V2Uw4Pq 5XevvkcHIN8CJeuJPT6Hd B8RoZbOtQ1A9DjKrm4NAC ggLxhJO1cR1Ug IVQjbiurdmctaYN3OLOxB PCyvY54hMUaUYjaKy5sy2 M2u828ADHuIVKovS48Cp1 udDogMTBwdCBU pN1fivdui2rixdxeWzThH SXzTEi9MDz1ORYpfHqyYy JgYUC2JsI6QYP3iWXpeH0 leRxqyhwxzD0c Oyc+X98lmA1xBCO8KFW7r ibnDYZxalPhQG26JE92C9 RyPjwvdGFibGU+PGRpdiB wgTqdEW4yRvKo h9lrc8FiQKobT4QiYDGfT YauJre6GMRkSMR0tBM7fJ 6aPKMvAPcsj7Z6tZA0N3V rcjGueg7of2oq HZOlYSvbG45acQKcr9W8T JAwmZW7BPAmjMbpAjTkzH 93Oyc+MICkhEzqf7GhUyp hd8vur7gzhHm2 OrGvBLVrisNcoRpnCNK7h 6JkLm10M62aMGzhVXMaDS NkYNJrXANbuXamuq6ppD8 wIi8+PGNvbCB3 wVE8nA7iZPYqShX7SEruX 294BrRhyGDxUkicn1hlu0 scrRd8CaHbMJIxunRwkUv aSHS3u1ZpWc63 O90kCXrrVPQzNACwMWQmA QApbNrwpg2knD6kXg6+PC 5uu6opcj69uX66fZB+PHR pVGG5dDykUNed WWExmE4hULjwXtG4QZPrE yCjqU97wPWvANjkVx8ehB fepAqgOH7cCJCljuhuy63 7LqQex3rrRRNc pZGrCMdlWCW1P00qy4I8X PBdLKJsZZG3qJK7iG1eyK lnbjogbGVmdDsgdmVydGl sUEnuFGzaX231 IHRvcDsnPlBhdGllbnQgT oUaZIr5A4HyQhi7QXHbxW zgVL6qgRSoFXkqJu6byUj ffRxwNY0yYPNw brbsh254SnNcx8ktAVDyq XNnYOmgWES4K01vd3F3RV HeHWHqUSW6nMY6cJ4fqEo nbjogbGVmdDsg kuHzwLscHLleQQjiY941X HRvcDsnPkJpcnRoIERhdG O4JC10PV78tYZfu7U6uRS 1D8PxPALzewfg pywwdUQ2HNUqCIQhcU70X r4flAhmQb9iEWOcLLU3YH BpdDEuB8IluV3dLjIvQVZ eTLAjO9YdrQUi HSpfQ444UFqcLcN4KTIsf gLzC5WsZRSaqMbuYpP7w0 B5Vi9WZ9J4QK54TJ79fQP bp1Q4uLL6K1Cm RVEsdztnrfeghUS5MTYxK FLlyW56Xj8piUwjAm2mTN BpJXV6USSzdEKnA3UntF5 yOiAjMDAwMDAw O6MlkDLqFJeoB232JDbwQ aZ9UTNzxzUkW1FnQDXnuX cmDeS0e4Q3On7WMGn3UK3 9NH22bENmk0B5 mYB3D2VzOGQrnuolxhont FP6JTTxIBKxxT84Ua3djM gtVw2eXKKsXCS5BGKhjAM uN9XmtO1kFaKb PXKxSMHlK6TchLJmQTvfC 885PSdnZkE1MJJbyjYxM6 BoUXCcaZkzTqP0l8O0Ge7 VDNYsKD66QBR5 aJC1DT94AN69A3ErFlnvj GFibGU+PHRhYmxlIHdpZH RoPScxMDAlJyBzdHlsZT0 zSb7mHOOsZLZh pCerfSNdHrTum3jsFSDnC RkkYD9tdFihA9AfjIU7NN Tcm4v5Ag06N52rG9IufUO +TWPwoEU4uND3 gR3mEeHxAvK2JXpaE297L mMdoNUvHlvyn4tba0rebA d2TgS9BORgduRwjPazWKE 0g9TcMy76K40s IHdpZHRoPSIxNSUiIHZhb Pbpqu9nmX3mBq9+PGNvbC Z6cQE5iR0vKbUgKbN5DQr dE456RvCcdWWm Bizex7mit1jbqCo1WbOhK MLusiLelFtqRGI8u8OvAp 39P5WbfFhoy8DqOkh4pf2 3qNAmz5O7jQM0 V0FyRXExzrchxGByiBjkU C2oXXZvvbeuVYNogW3yMP BqL3n2MdZwAlN4TKwqG0A pyyM3WDLtlLOv ZBemHGE8N78lo7Y4HNErG MGuURY7jSB6pH4emZjkvn ogbGVmdDsgdmVydGljYWw oZVmdO144GXHy tRqaOILxoK8vFHIirZGxn SmsER7vHHIpjxqtZeyDLS 1BTiwgRUxJWkFCRVRIIEF OTjwvdGQ+PHRk XIM3iBoaIKhbUMOjbF4hE HUrN9q1DxYjFbP9WUbxJ1 AxHPEbskkkYu84yP1yCmC aZdI4XYvnA3Sd vxA6DMUbzKUvHPtjEMW0J 67bk6D5NLGaYLHbFBO2qD N7qW4ckFrrxjuatYLgrHh gdmVydGljYWwt FCctK852WZTqvCbgIeI8T mUzPqI4FnA3N7IyBmi6FU WklDxzFO9xyVQrNNhdCx2 jpFkabHgwYO3a XJRgkvkpCNPpiQ4dGDNwy THpoWphDD8gVIRzrfhlr5 38SeSlTYJ7OEEqcYKzB5P coQ7mXjSlYLSa HVKsS3MiaTJbCLqyD729F LhnZiK7JHLfboZfP6MwTW DkuAkmHdN9p9J3Zt49ELZ ZZWFyczwvdGQ+ XYKjXKR7cCmeXOaeGOSxy T4aRNGhX1l9OhCjExH9XM cnB3OvJSWrfstfLh37cP2 lLcTfMiP9GZhs L6VzfdX0MPJzeFNfKZgvK EI0O94pk9X6MPVkCPCcSV S8aEO6tN5ikGupitidzLW mdDsgdmVydGlj EYraGEmdJ556CHLqgDtuF kZFTUFMRTwvdGQ+PHRkIH F3cXrxGFbyEMVeqU6vXGG qR7y4SzLjEbD4 YHocS7ZhCLLdmnycAy68a A9nMtTiKuZ3FDgjJ8Bvdz I0EIIuvYRdFKdiCNA1J56 mb7E6NDIfEBKk APN2xQY5cS7idXlumtthl GVmdDsgdmVydGljYWwtYW gkO238OYVfcFdsBz7RED2 6KD02R5AgBwjn dGFibGU+PHRhYmxlIHdpZ HRoPScxMDAlJyBzdHlsZT 8jVr7sBXQgQELmoUserML kOkBtf6ajNNXk SKcnDL1oyUtkL6IggJV1I CTxm5k8Cg42R03tR2TedK A+ERYbtQU5rRH6iJ3jBdH nLcP9SMvgU737 JhBuhIOxIehqr0wky9urh Fk6WpOuCRZremYqyOmuAP H3a3HsAi32O84kCXqlGWG oPSIyMCUiIHZh dHusch0cnD9wHl6+PGNvb DM6fBH7pM6rFhMwHnH8BK hqT335KxNitLGdPqccE69 bO0JbiGA+PHRy Cuc3SKPnpQwsLY7otJOoM ZnqMa5tYXX8JfGyMlAuWK zwY9WmWKQtzepsebrfvTU 2CXUeBDKhnM35 Xy9qhYshQd4eZJXpGDD4G SMprJLbJ9KrbO4gTgNbHK GuCPIxQ7ZzxLMiKQadM36 1EWfoOdW7XKGg ihMgZ3MeYXHeaGfsAtY5n 5W2Kc3BgNjheXOvTG4sFb JwJAz1F0ChWnw2GHFvqZf zDX6fhZUvCZwi Ej9feOauwIdpRV6bIIIqz dkye713EaDke7rdCTDvaA NlZHfzAVL7B25sn7Q0JDT tNFHfERC5uTD5 zE7tdPfuavquzXHbyHaua eMibPiiTPwkNKhfX335ZT LwuYocTyHQVod1G5HjRfs 9XAYhyGgiUZ0w eVAoTEwhLz9ccWigkRyfS T7yAKFwwmxqq490HaXmr6 tpKKFwgSIxWYauCPU4T76 iv9R8GLJkMEYt PEL8sBT0wV2tiBuyqulrb GVmdDsgdmVydGljYWwtYW ijK351OWRlrKlmCd4SSrg 6T3UtVqh0NQVj vCmfWA9xcUAmDTrzGs6oo AnigPlbDB9sHMIrmibsf7 72DcLuj2fhIQCzcLNnUDq iVHX8T85xz5U2 LPZzNPTiTWL6wKD5oO6kk GlnbjogbGVmdDsgdmVydG csFKrlRItxC236TXQtcRc nPlBheWVyOjwv dGQ+IY57sw47N7KnGebtX dh1HZXgIMO6wIS4mZ5yXR TmDHeqa0Q7mNN2U8UhhqX zeb7lf0acOMMb ZTo (more content not included)... Normal [facility] Inpatient Patient Summaryon 08-26-2021 [place] [id number] Patient Discharge Instructions Name: IKE FLANNERY : 1970 Patient Address: [address] [place] [address] Primary Care Provider: Name: RANDY CALLE After you are discharged if you find you have any questions, please, call [phone] ext [phone] to speak to a nurse. Discharge Diagnosis: Internal derangement of left knee Prescription Information: If you have been given a prescription for narcotics, seek immediate medical attention if you have any difficulty breathing or any sudden status changes such as confusion and sleepiness. If you or anyone you know is experiencing suicidal thoughts, mental health, alcohol and/or drug addiction problems; contact the [facility] 22/09 Crisis Hotline -Text 4HOPE lk 894413. If you received any narcotics, sedation, or [...] business decisions or sign any legal documents [facility] would like to thank you for allowing us to assist you with your healthcare needs. The following includes patient education materials and information regarding your injury/illness. IKE FLANNERY has been given the following list of follow-up instructions, prescriptions, and patient education materials: Follow-up Instructions Medications During the course of your visit, your medication list was updated with the most current information. The details of those changes are reflected below: Medications to Continue That Have Not Changed Other Medications acetaminophen-hydroco done (!-[place] 5 mg-325 mg oral tablet) 1 tab(s) Oral Every 6 hours as needed as needed for pain. carvedilol (carvedilol 12.5 mg oral tablet) 1 tab(s) Oral 2 times a day. cyclobenzaprine (cyclobenzaprine 10 mg oral tablet) 1 tab(s) Oral At bedtime as needed for spasm. hydroCHLOROthiazide (hydroCHLOROthiazide 25 mg oral tablet) 1 tab(s) Oral every day. potassium chloride (Potassium Chloride (Prs-Csjs-Noz 10) 10 mEq oral tablet, extended release) [...] you can keep with you. acetaminophen-hydroco done (!-[place] 5 mg-325 mg oral tablet) 1 tab(s) [...] Oral every day. potassium chloride (Potassium Chloride (Uay-Jhxu-Iqd 10) 10 mEq oral tablet, extended release) [...] flow is (more content not included)... Normal [facility] MAGR Intraoperative Recordon 08-26-2021 MAGR Intraoperative Record MAGR Intra-Op Record Summary Primary Physician: Hua Oglesby DO Finalized Date/Time: 08/26/21 15:08:30 Pt. Name: IKE FLANNERY/Sex: 1970 FEMALE Med Rec #: [id number] Physician: Hua Oglesby DO Financial #: [id number] Pt. Type: D Room/Bed: / Admit/Disch: 08/26/21 [...] Role Performed Surgeon - Primary Anesthesiologist of Psychologist Social Record Time In 08/26/21 14:02:00 08/26/21 14:02:00 08/26/21 14:02:00 Time Out 08/26/21 14:56:00 08/26/21 14:56:00 08/26/21 14:56:00 Procedure Arthroscopy Knee(Left) Arthroscopy Knee(Left) Arthroscopy Knee(Left) Last Modified By: Jeannine Eid RN, Erica RN Baumer, Erica RN 08/26/21 14:54:01 08/26/21 14:54:01 08/26/21 14:54:01 Entry 4 Entry 5 Entry 6 Case Attendee Dorothy Archer RN REEL WORKER, Avi Navarrete REEL WORKER, Shanique BROWN Role Performed Psychologist Social Mail List Processor Scrub Personnel Time In 08/26/21 14:02:00 08/26/21 [...] Strap, Arm Information arthroscopic knee Boards, Leg Sorensen sorensen with padded insert, non operative leg supported [...] By Jeannine Eid (more content not included)... [facility] MAGR PACU Recordon MAGR PACU Record MAGR PACU Record Summary Primary Physician: Hua Oglesby DO Finalized Date/Time: 08/26/21 15:37:09 Pt. Name: IKE FLANNERY/Sex: 1970 FEMALE Med Rec #: [id number] Physician: Hua Oglesby DO Financial #: [id number] Pt. Type: D Room/Bed: / Admit/Disch: 08/26/21 11:01:00 - Institution: PACU Case Times MAGR Entry 1 In PACU I 08/26/21 14:56:00 Discharge from PACU 08/26/21 15:30:00 I Last Modified By: Elvira Navarro RN 08/26/21 15:37:04 Finalized By: Elvira Navarro RN Document Signatures Signed By: Elvira Navarro RN 08/26/21 15:37 [facility] MAGR Postoperative Recordon 08-26-2021 MAGR Postoperative Record MAGR Phase II Record Summary Primary Physician: Hua Oglesby DO Finalized Date/Time: 08/26/21 16:25:07 Pt. Name: IKE FLANNERY/Sex: 1970 FEMALE Med Rec #: [id number] Physician: Hua Oglesby DO Financial #: [id number] Pt. Type: D Room/Bed: / Admit/Disch: 08/26/21 [...] Signed By: Elvira Navarro RN 08/26/21 [facility] [place] [facility] Pre-Op Rec ord Summary Primary Physician: Hua Oglesby DO Finalized Date/Time: 08/26/21 15:18:23 Pt. Name: IKE FLANNERY MIGUEL RosenO.B./Sex: 1970 FEMALE Med Rec #: [id number] Physician: Hua Oglesby DO Financial #: [id number] Pt. Type: D Room/Bed: / Admit/Disch: 08/26/21 [...] By: Elvira Navarro RN 08/26/21 15:18 Normal [facility] Operative Report - Surgeon/P aster 08-26-2021 [...] instability the leg was placed in leg sorensen and prepped and draped in usual fashion [...] on: 08/30/2021 13:39 EDT] Hua Oglesby DO [facility] Patient Handouton 08-26-2021 Patient Handout POST [...] be done to rule of a DVT. [facility] Progress Note - Nurseon 08-01 Progress Note - Nurse Pre-op call done, instructed to arrive @ 1100 on 08-26-21, NPO after midnight, and need for ride to and from hospital-verbalized understanding. [Electronically Signed on: 08/23/2021 13:36 EDT] Gino Painter RN [Verified on: 08/23/2021 13:36 EDT] Gino Painter RN [facility] 2019 Novel Coronavirus (CoVI D-19), KYLE LCon 08-22-2021 SARS-CoV-2 (COVID-19) RNA KYLE+probe Ql (Unsp spec) Not detected Invalid Interpretation Code Not Detected [facility] Comment on above: Order Comment: [address] [facility]# [phone] Result Comment: This nucleic acid amplification test was developed and its performance characteristics determined by [employer]. Nucleic acid amplification tests include RT- PCR [...] detected) result in this assay. Performed At: [address] [id number] José Manuel Chery PhD Ph:[phone] Performed By: #### 6 [id number] ####[facility] (DEFAULT)[address] [place] [address] Coding Summaryon 08-15-2021 Coding Summary HTMLBase 64 IesyoiijSCh6sXw+PGhlY WQ+WD5LDCWnG05djSIvbP 5NN8cCUZ5ARNBORCATVR1 TWK8ymIM7YIbwH2PgvaHa LqhtcMZzVE40KWj0LIU1n VpgMDwyzX9xfNKgQ7f5Hx GrRB25lJ43HOdaFYRhAcW 3LjZpbjsgbWFy T9ivOqVcrXQeYzu+PHRhY mxlIHdpZHRoPScxMDAlJy CpxHlxRP9oDu1vGHJuVDS vbGxhcHNlOiBj m0lsVUBpKBikCV2ctIpeW 4FhfBP2WPSve8d2Pi76qV I+JBVqVFR8lZueSVxtu37 0XpLgt5diMQY2 hVDxIXnnXBM3S87si3J4U CMzGXMfGAE6cPR0cY0ufY hwqciuY7NwiNMgPhO8ODA 9aDZhhK1tuCpg nymbmI7lTfu+D12RDS5OB MGOQE7QRgz9P8CkIciwaB I+CK94YOMsRJ86vJXfkTU zn8jifVe1RoQn WVHoATV0qMbyCMtak9FeC WDhF77inJAox9R6UDGsdE xipWSoZxDvzMQ9uB9lTWm lqltmi5ugpbvd Chdef7jzho14hW21L14qN YyfJJSrJHN8GLBoNRZsuW cvsq0peQ4lPe1+REadq5q rt1mgcSu7GxSg MZZiqxThaTpqVFM7x4OuH p89M0WsvNbkv1HyWfs5gy 93tAMzd1V6mRQ8PHtdUUN rmY7tTVeiUeG2 URLdGhBvzC61qRNsOXfaI z3abMvgmKweNT8kCDIcnq vcHZMyaM9yFTCljMBrqCr eML5yPQHunihe t420NaPcQHA3TKXfySPyK 3AcmG4iNkXhYCMuJVAtB4 TefUOdYMusM160UMwdAjY 1WDUyapZxU0Qk HFHknPxvNqP6w0T8Yc8Hw 3CszipiPTN8PHmjPDV4Yd N0CyMbJcO3Q8AvRju2OQC rnHozDC6hS3Lq LNVaulboagsucJV8TJToR CKgxD60uQWcUYzrZk6xs0 O7k768OKNhTUHrfX77Tj3 udDogMTBwdCBU pF4zfjtbw9rmgezxQuEwZ PMvCUu5ECa9IPRjfSrjLh GsYLQ9VvP5BQH5xQNcyQ5 asMzuzzkobC6v Oyc+L31blE5aSEX9IKN1n fznAJDtwnKuZO86AW26M0 RyPjwvdGFibGU+PGRpdiB cgClzYJ4gLzBq m9for4YuRZiqY2MkKMWuU PknHfg8LMSeZFO7eAK1tH 0vLASnURpxo2W3gNL8B0F awfUbau1qb9tb BJCwMOuzF04ddIJyy9K2G NAfkMR2CJUkmGxpWhUbgI 93Oyc+FPCrcMyij7FlWkk wt7ack7sluTo3 HuNsFDKlgdJwdXrrCMC8g 5MiNt09S69jTZwiVQUeQX KoRIDqHWPxrZawzt2uhH6 wIi8+PGNvbCB3 jWR9bU3rRPBmIhB7IVmfX 804OpYnaFJaJogzm8lka3 oboLb0QdOiEBCuviWslEt vLXB0q7QxLt03 C06bZFkzXPEgEYIbCEAuP REgvTarfv1otI3wGz1+PC 8ta6kiie25gU07zSZ+PHR yBDN9qZsdFRql MURaqD2zCCgnMfS4RXGrL dVzzQ53wUSfJNipXn7whO bnuOguEY7oJJZmegsrs93 1IhFaq1lwABQd pCYpZIvnYBH7Q73zc8U4N POiHZUpWYP1jFX8pV7jhB lnbjogbGVmdDsgdmVydGl cYFjgUXmrL362 IHRvcDsnPlBhdGllbnQgT mYqCDj7P2VyMff5TUHszV ymNL0cyAOgOKtgTc7ifEk mxCqdIN1cAUZw cbzdq154HvQnj9vuSHRuw KUgWYnyRAI2O20ke3U9TH DnRXHwQUU2jRL7cJ5gnBu nbjogbGVmdDsg jdPqrOndKSflNApvA589U HRvcDsnPkJpcnRoIERhdG D3HV40YC32xCKjw9Q5dDI 5G0IhXCDgyqzs iktaoDV6DVDbIYEjsV68L x5vcLscDn5pADVdGMJ0RS McqGDrJ2CxrG4yIaCpIFM qRDIeG7HtzPZw VHjaP564VAjcBwD8GUEdh kBoG0MdUSEbuNovGnZ5e8 M1Qt2BI0I7XQ07BL04kPA yp6B0pFE1Q8Sd JZXscsdsqdntbDH0LRIyQ KVonV83Fe7elEhsUu4xVM NgRPJ7BZEvrSXnW3CiuH4 yOiAjMDAwMDAw B0BexUKyOJkrS541DBlfM qD4ZGHjmiXsB2PeSSRpzY fgQcA6i3W7Ua4SUOc7BI1 3JN01hIMst9C9 oKN1F2YbYEYyahfhiddke OH1QQOrQZYuxN26Uk7qtF eiPn1fGMCkAJQ7QZAreOU zM2HbcO8sIpJa QTSvZMGvB1GpxBKwPPgsO 757VWjrXxS2FPBryzAmI1 JfXBZedMdiIvS5p3S9Uy4 UDXQxUH99SMR7 lVY7GT27FD00A2WrVbezn GFibGU+PHRhYmxlIHdpZH RoPScxMDAlJyBzdHlsZT0 pSh9zFUShEOVv iXouySSaRcWhr3qhHGQbK EgmPD2ooTlhB7MzwBC9NK Swl9f7Ns54O00iF1XrnES +CBTgcZR0tEI6 xS9cJeRsTaG9VPsaU163I wVmyKVoPfjab7esf3iyeR b4IfQ5AYKujaFelShvACI 5k5OtQv33V86x IHdpZHRoPSIxNSUiIHZhb Mjygo9iaE8zJz3+PGNvbC B9nZR3rP7lFwZcJnF6AZw fY479LvGdsMSw Jrxhn5bcq1gdcFo7VxPdS EVumxNmyLkgAXY3y7JtCf 30D5PueVoyz9VeFhr4gt4 3pIUvw6C8oXW6 B8YePUVzzclxbLMwzIzrO V3xITFwwmfqOZVqdB9eDU OvE8e3CmHxNuP6MYcpK2I jefP9EKBpcHZg YOmcSQH7H32jw8I0SRBiB YQmHGK9kOZ4bS7bgJuhky ogbGVmdDsgdmVydGljYWw pAVftK771ZWAd hEsdZGCiaE5hGGNwnROaa LsjDY9vNUJtfolcLfoZLA 1BTiwgRUxJWkFCRVRIIEF OTjwvdGQ+PHRk UDK6bFglNMntQJQnjE9cD XYnA3s8AvHqCeO4GFbaL0 DgJFDkuhfgQm67aW0xIwP eMfJ4XLbcP2Em nfX7YCWjiLSzBMnfSLY6P 58bj3A8DOGjEPVsQBQ7bX C8uN8kzRhujzsjdYMnlFa gdmVydGljYWwt OFiuI280EYGcvMjmCuQ0E sMcFqE2DmE2I1ZrMfa1FW DpmQfiJC2eiIIhRCnrUy1 unIfxnLpkTA3h VPDzszbdKQJsiK6dESRbq TVbeBauJH3eMRUluewtd8 90FoEvDAD6OZCrsINfG3M afT6eSiTrIEAt JDCzV8XjzPLjHWsuW829A MrtFgV5ZOJrbyTgG4FlBH QktZxzRzY9d1A0Xm58VYD ZZWFyczwvdGQ+ WPPsLTJ9oDsqFZdiGEIox C8gVGFsJ1c1ZuXoNtV5ZV pdN8EnJBVfhaxuAu56xT1 uIpXaVdG1DKhz H6HofwO4DSGfoSIePMcjH SU2N32nl2S1YJKaQORcKK D6dOK2dG4ciMergakwfHP mdDsgdmVydGlj CDsxILolJ344OJZhdQfjN kZFTUFMRTwvdGQ+PHRkIH X6cJvjRNhbPEAtuY7zLRC aA8e9WuKbQzB1 PVcoG2LwMIYdmavrZl05k B4oGyPuLwM2DFxaV4Xirx L4SXBqxAWiWTxeIJL1S70 ja5P2WDNdBNJx LDF1kYE0pB6ptCgolzesd GVmdDsgdmVydGljYWwtYW jyP475DLDtxUziGy1LNY9 9BR34U9JpQaoa dGFibGU+PHRhYmxlIHdpZ HRoPScxMDAlJyBzdHlsZT 7wJd6jSQXfRGKlySvhwQJ eNkQky7lmERDi BSewCH4ugLqyG3EayEP4W LPcs5b0Sw98H32vX3LlhB A+PFUbmQG3eYH9mM2zJgR lFvH0VNquF331 OxCqgCXuQgmpb3sjw0eqg Yl7HmIuUKVhrqWqsJufHS S0q0BoXr23I53vUPwmERJ oPSIyMCUiIHZh jJqmng0osX9yJd2+PGNvb AW6xCV3hM5bHsHvXeP4NM uuO575WgUbzCYvBlysT80 bK5IwdTU+PHRy Ria4OXZshXoiJR8alBSoA QrdHd5iBXI2CeQdNoKqHW msC3LjOJFypphgwnuwhLU 2UHBlYNDjeQ81 Mz9sjYwfZo9kLYFuXGL0H WZqkPVzE7CphT5dGmNsFE YqVFMlC6YmkUDzJJlsJ75 5LQmnOiA6ZGZg wvKyK2EnLGMntYonRgU3e 2P4Hh7FdBifoDHuBF5bGm XmRTh5X4OcHoq7CNGxvVc tCC5aaCMvJJwy Iz7pmTxusYsgRT4oYIImj fwxt086DhOxy6diJYUgyH SmETomBXH3C87np6E0QGI bLEZoBZT0xEW4 rA6rfVvbrhzyjLYjjEupr bJqhSakWLqsXTloC127MO WogMnaSoBAQvl1V6DvOgj 5OCZsbHtgLH4i pXTeQUkcSn4jmIzcqOjzN A4dQUYdgustu972OcEkb7 mhLFGmoQEfVHvlCAD7T90 fe3I1UZPhZHXm UNR7fIO2yT8pqPstzrckl GVmdDsgdmVydGljYWwtYW kuX782OCRduCwtHq5AJvh 7J6DxKbx7SAVa yXmjBM1avOPyFDgkKn4pl MefcQypLV1rRPOdiujii2 23BlLwn4saAHSfdLWwTHg jPXA7Q33yv2R9 SJToZDFkSEQ0mYD4uO5gs GlnbjogbGVmdDsgdmVydG nwXGpwSHuzA443FTLhjOo nPlBheWVyOjwv dGQ+WR33uz44V5DoDrnlT mz2CJZeZAV7dWE8wH2hMN BpNVrmj7S6mYO8S5MtbyP okq2dm4mmTTWh ZTo (more content not included)... Normal [facility] Inpatient Patient Summaryon 08-15-2021 Inpatient Patient Summary [address] [id number] Patient Discharge Instructions Name: IKE FLANNERY : 1970 Patient Address: [place] [facility] [address] Primary Care Provider: Name: RANDY CALLE After you are discharged if you find you have any questions, please, call [phone] ext [phone] to speak to a nurse. Discharge Diagnosis: Prescription Information: If you have been given a prescription for narcotics, seek immediate medical attention if you have any difficulty breathing or any sudden status changes such as confusion and sleepiness. If you or anyone you know is experiencing suicidal thoughts, mental health, alcohol and/or drug addiction problems; contact the [facility] 22/09 Crisis Hotline -Text 4HJBL to 360998. If you received any narcotics, sedation, or [...] business decisions or sign any legal documents [facility] would like to thank you for allowing us to assist you with your healthcare needs. The following includes patient education materials and information regarding your injury/illness. NICCHEN IKEFOREST RIVERA has been given the following list of follow-up instructions, prescriptions, and patient education materials: Follow-up Instructions With: Address: When: MYESHA VINSON [address] [place] [address], [place] [address] Business (1) 09/03/2021 9:15 AM With: Address: When: RANDY HALLMAGALYS [facility] [place] [address] Business (1) Medications During the course of your visit, your medication list was updated with the most current information. The details of those changes are reflected below: Medications That Were Updated - Follow Below Instructions Other Medications Updated: potassium chloride (Potassium Chloride (Grs-Gxlk-Vnm 10) 10 mEq oral tablet, extended release) [...] Oral every day. potassium chloride (Potassium Chloride (Xil-Jxkl-Yax 10) 10 mEq oral tablet, extended release) [...] for Disease Control and Prevention October 2013 [facility] Patient Handouton 08-15-2021 Patient Handout Normal [facility] Progress Note - Nurseon 07-31 Progress Note - Nurse Dr. Small review s PAT information and testing results. Ok to proceed, no orders given. [Electronically Signed on: 08/14/2021 12:02 EDT] Dary Gallegos RN [Verified on: 08/14/2021 12:02 EDT] Dary Gallegos RN [facility] .Auto Diff 1on 08-12-2021 Auto [place] % 8 % Normal 12 [facility] Comment on above: Performed By: #### 1 [id number], [id number] ####[facility] (DEFAULT)[address] [place] [address] Baso Abs# 0.1 x10 Normal 0.0-0.2 [facility] Comment on above: Performed By: #### 1 [id number], [id number], [id number] ####[facility] (DEFAULT)[address] [place] [address]95[address] Basophils/100 WBC (Bld) 0.9 % Normal 0.2-2.0 [facility] Comment on above: Performed By: #### 1 [id number], [id number], [id number] ####[facility] (DEFAULT)[address] [place] [address] Eos Abs# 0.3 x10 Normal 0.0-0.4 [facility] Comment on above: Performed By: #### 1 [id number], [id number], [id number] ####[facility] (DEFAULT)[address] [place] [address] 25753 Eosinophils/100 WBC (Bld) 3.9 % Normal 0.9-4.0 [facility] Comment on above: Performed By: #### 1 [id number], [id number], [id number] ####[facility] (DEFAULT)[address] [place] [address] Lymph Abs# 2.6 x10 Normal 1.3-2.9 [facility] Comment on above: Performed By: #### 1 [id number], [id number], [id number] ####[facility] (DEFAULT)[address] [place] [address] Lymphocytes/100 WBC (Bld) 30 % Normal 14-48 [facility] Comment on above: Performed By: #### 1 [id number], [id number], [id number] ####[facility] (DEFAULT)[address] [place] [address] [place] Abs# 0.7 x10 Normal 0.0-0.8 [facility] Comment on above: Performed By: #### 1 [id number], [id number], [id number] ####[facility] (DEFAULT)[address] [place] [address] Neut Abs# 5.0 x10 Normal 1.5-9.2 [facility] Comment on above: Performed By: #### 1 [id number], [id number], [id number] ####[facility] (DEFAULT)[address] [place] [address] Neutrophils/100 WBC (Bld) 58 % Normal 44-88 [facility] Comment on above: Performed By: #### 1 [id number], [id number], [id number] ####[facility] (DEFAULT)[address] [place] [address] Standardon 08-12-2021 eGFR Non AA >60 Invalid Interpretation Code [facility] Comment on above: Performed By: #### 1 [id number], [id number], [id number] ####[facility] (DEFAULT)[address] [place] [address] eGFR AA >60 Invalid Interpretation Code [facility] Comment on above: Result Comment: Last Trimmer medina Kidney disease could be indicated at eGFRs of less than 60 ml/min/1.73m2. Kidney Failure is indicated at less than 15 ml/min/1.73m2 Performed By: #### 1 [id number], [id number], [id number] ####[facility] (DEFAULT)[address] [place] [address] Anion gap [Moles/Vol] 14.0 mmol/L Normal 5.0-19.0 [facility] Comment on above: Performed By: #### 1 [id number], [id number], [id number] ####[facility] (DEFAULT)[address] [place] [address]7071 Calcium [Mass/Vol] 9.6 mg/dL Normal 8.9-10.3 [facility] Comment on above: Performed By: #### 1 [id number], [id number], [id number] ####[facility] (DEFAULT)[address] [place] [address] 07710 Chloride [Moles/Vol] 102 mmol/L Normal 101-111 [facility] Comment on above: Performed By: #### 1 [id number], [id number], [id number] ####[facility] (DEFAULT)[address] [place] [address] 71185 CO2 [Moles/Vol] 25 mmol/L Normal 21-32 [facility] Comment on above: Performed By: #### 1 [id number], [id number], [id number] ####[facility] (DEFAULT)[address] [place] [address] 26071 Creatinine [Mass/Vol] 0.72 mg/dL Normal 0.60-1.30 [facility] Comment on above: Performed By: #### 1 [id number], [id number], [id number] ####[facility] (DEFAULT)[address] [place] [address] 82356 Glucose [Mass/Vol] 100.0 mg/dL Normal 74.0-118.0 [facility] Comment on above: Performed By: #### 1 [id number], [id number], [id number] ####[facility] (DEFAULT)[address] [place] [address] 64622 Osmolality 275 mOsm/L Invalid Interpretation Code [facility] Comment on above: Performed By: #### 1 [id number], [id number], [id number] ####[facility] (DEFAULT)[address] [place] [address] Potassium [Moles/Vol] 3.4 mmol/L Low 3.6-5.1 [facility] Comment on above: Performed By: #### 1 [id number], [id number], [id number] ####[facility] (DEFAULT)[address] [place] [address] Sodium [Moles/Vol] 138.0 mmol/L Normal 136.0-144 . 0 [facility] Comment on above: Performed By: #### 1 [id number], [id number], [id number] ####[facility] (DEFAULT)[address] [place] [address] Urea nitrogen [Mass/Vol] 10 mg/dL Normal 8-26 [facility] Comment on above: Performed By: #### 1 [id number], [id number], [id number] ####[facility] [facility] (DEFAULT)[address] [place] [address] Urea nitrogen/Creatinine [Mass ratio] 14.0 mg/mg Normal 4.6-16.2 [facility] Comment on above: Performed By: #### 1 [id number], [id number], [id number] ####[facility] (DEFAULT)[address] [place] [address] CBC w/ Auto Diffon 2 Erythrocyte distribution width (RBC) [Ratio] 14.6 % Normal 11.5-15.0 [facility] Comment on above: Order Comment: CBC C LOTTED. PATIENT CALLED BACK FOR RECOLLECT. Performed By: #### 1 [id number], [id number], [id number] ####[facility] (DEFAULT)[address] [place] [address] Hematocrit (Bld) [Volume fraction] 35.0 % Normal 33.7-40.4 [facility] Comment on above: Order Comment: CBC C LOTTED. PATIENT CALLED BACK FOR RECOLLECT. Performed By: #### 1 [id number], [id number], [id number] ####[facility] (DEFAULT)[address] [place] [address] Hemoglobin (Bld) [Mass/Vol] 11.0 g/dL Low 11.3-15.9 [facility] Comment on above: Order Comment: CBC C LOTTED. PATIENT CALLED BACK FOR RECOLLECT. Performed By: #### 1 [id number], [id number], [id number] ####[facility] (DEFAULT)[address] [place] [address] Instr WBC 8.6 x10 Invalid Interpretation Code [facility] Comment on above: Order Comment: CBC C LOTTED. PATIENT CALLED BACK FOR RECOLLECT. Result Comment: CBC RECOLLECTED @ 08/12/2021 15:15:27 EDT BY MHDMITCHELL. GILMORE. Performed By: #### 1 [id number], [id number], [id number] ####[facility] (DEFAULT)[address] [place] [address] Man Diff? Auto Normal [facility] Comment on above: Order Comment: CBC C LOTTED. PATIENT CALLED BACK FOR RECOLLECT. Performed By: #### 1 [id number], [id number], [id number] ####[facility] (DEFAULT)[address] [place] [address] MCH (RBC) [Entitic mass] 25 pg Normal 24-34 [facility] Comment on above: Order Comment: CBC C LOTTED. PATIENT CALLED BACK FOR RECOLLECT. Performed By: #### 1 [id number], [id number], [id number] ####[facility] (DEFAULT)[address] [place] [address] MCHC (RBC) [Mass/Vol] 31 g/dL Normal 26-37 [facility] Comment on above: Order Comment: CBC C LOTTED. PATIENT CALLED BACK FOR RECOLLECT. Performed By: #### 1 [id number], [id number], [id number] ####[facility] (DEFAULT)[address] [place] [address] MCV (RBC) [Entitic vol] 79 fL Low 81-100 [facility] Comment on above: Order Comment: CBC C LOTTED. PATIENT CALLED BACK FOR RECOLLECT. Performed By: #### 1 [id number], [id number], [id number] ####[facility] (DEFAULT)[address] [place] [address] Platelet 491 x10 High 138-427 [facility] Comment on above: Order Comment: CBC C LOTTED. PATIENT CALLED BACK FOR RECOLLECT. Performed By: #### 1 [id number], [id number], [id number] ####[facility] (DEFAULT)[address] [place] [address] Platelet mean volume (Bld) [Entitic vol] 9.4 fL Normal 6.3-10.2 [facility] Comment on above: Order Comment: CBC C LOTTED. PATIENT CALLED BACK FOR RECOLLECT. Performed By: #### 1 [id number], [id number], [id number] ####[facility] (DEFAULT)[address] [place] [address] 00963 RBC 4.41 x10 Normal 3.70-5.30 [facility] Comment on above: Order Comment: CBC C LOTTED. PATIENT CALLED BACK FOR RECOLLECT. Performed By: #### 1 [id number], [id number], [id number] ####[facility] (DEFAULT)[address] [place] [address] 89986 WBC 8.6 x10 Normal 3.5-10.5 [facility] Comment on above: Order Comment: CBC C LOTTED. PATIENT CALLED BACK FOR RECOLLECT. Performed By: #### 1 [id number], [id number], [id number] ####[facility] (DEFAULT)[address] [place] [address]1905 MRI Knee w/o Lefton 07-27-19 MRI Knee [...] by Michael Pappas on 07/28/2021 1331 Normal [facility] Career Development Director BASIC METABOLIC PANELon - BUN/CREATININE RATIO NOT APPLICABLE Normal 6- [facility] Comment on above: Order Comment: FASTI NG:YES FASTING: YES Performed By: #### 1 0165 #### [facility] [address], [address] [place] [address] Piped Buttonhole Machine Operator: Heraclio Miller MD Calcium [Mass/Vol] 9.0 mg/dL Normal 8.6-10.4 [facility] Comment on above: Order Comment: FASTI NG:YES FASTING: YES Performed By: #### 1 0165 #### [facility] [address], [address] [place], [place] [id number] [employer] Buttonhole Machine Operator: Heraclio Miller MD Chloride [Moles/Vol] 106 mmol/L Normal 98-110 [facility] Comment on above: Order Comment: FASTI NG:YES FASTING: YES Performed By: #### 1 0165 #### [facility] [address], [address] [place] [address] Piped Buttonhole Machine Operator: Heraclio Miller MD CO2 [Moles/Vol] 27 mmol/L Normal 20-32 [facility] Comment on above: Order Comment: FASTI NG:YES FASTING: YES Performed By: #### 1 0165 #### [facility] [address], [address] [place] [address] Piped Buttonhole Machine Operator: Heraclio Miller MD Creatinine [Mass/Vol] 0.73 mg/dL Normal 0.50-1.05 [employer] Comment on above: Order Comment: FASTI NG:YES FASTING: YES Result Comment: For patients >49 years of age, the reference limit for Creatinine is approximately 13% higher for people identified as -J[place]ican. Performed By: #### 1 0165 #### [facility] [place] [address] Piped Buttonhole Machine Operator: Heraclio Miller MD eGFR NON-AFR. ZIMBABWEAN 96 mL/min/1.73m2 Normal > OR = 60 [facility] Comment on above: Order Comment: FASTI NG:YES FASTING: YES Performed By: #### 1 0165 #### [facility] [place] [address] Piped Buttonhole Machine Operator: Heraclio Miller MD GFR/1.73 sq M.predicted among blacks MDRD (S/P/Bld) [Vol rate/Area] 111 mL/min/{1.73_m2} Normal > OR = 60 [facility] Comment on above: Order Comment: FASTI NG:YES FASTING: YES Performed By: #### 1 0165 #### [facility] [place] [address] Piped Buttonhole Machine Operator: Heraclio Miller MD Glucose [Mass/Vol] 85 mg/dL Normal 65-99 [facility] Comment on above: Order Comment: FASTI NG:YES FASTING: YES Result Comment: Fasting reference interval Performed By: #### 1 0165 #### [facility] [place] [address] Piped Buttonhole Machine Operator: Heraclio Miller MD Potassium [Moles/Vol] 3.7 mmol/L Normal 3.5-5.3 [employer] Comment on above: Order Comment: FASTI NG:YES FASTING: YES Performed By: #### 1 0165 #### [facility] [place] [address] Piped Buttonhole Machine Operator: Heraclio Miller MD Sodium [Moles/Vol] 140 mmol/L Normal 135-146 [facility] Comment on above: Order Comment: FASTI NG:YES FASTING: YES Performed By: #### 1 0165 #### [facility] [address], [address] Piped Buttonhole Machine Operator: Heraclio Miller MD Urea nitrogen [Mass/Vol] 12 mg/dL Normal 7-25 [facility] Comment on above: Order Comment: FASTI NG:YES FASTING: YES Performed By: #### 1 0165 #### [facility] [address], [address] Piped Buttonhole Machine Operator: Heraclio Miller MD Coding Summaryon 01-28-2021 Coding Summary [employer]Base 64 MfgqywynLGm2vNr+PGhlY WQ+FT2VGUQxI69kpIFbqV 4SA6yLVH9ZOVJMJLVJEJ8 EUH1vkQD7CZmrQ6KqmnYz InigoRFqBK79QRz6KIM7e EkaCFqioV0ujUDnV5h5Vk UmUX00qN55BCqyWMYyTzO 3LjZpbjsgbWFy W9iwWtPiaVQaRgs+PHRhY mxlIHdpZHRoPScxMDAlJy ZqfJktKD0cSi5sFSFvUDZ vbGxhcHNlOiBj r4ieBULlYEzhVN4vjUypI 9GwgRG1AVMzl5g6Yo17qV I+BDBhLYF8mKxoQXsvk17 9VdJub0woBUD2 cEMyEAbqKFN8T63be0X8R BAhUMSwEQW3lLE2xQ6ogZ pjtrldR2VppJUxZbO3UBQ 8fQAaxT0hjHak hirzaC7bIqg+C63XVN3PY UMAUL5FTkg8P1LhHmsrwT I+IJ04LFOiRF59zXRiwTI zb0pblQo1HvHp NTDxUTC7ySctSWnrl9AdH BQiT61jjBSws6H4VRLacL jwaNZiEsTbnQP2cO0mHXg ssubil7qrtean Aymyl3ckod64iQ33V29oE ZsnSUMeCMZ7VQLxISSnvB pvhm5nzN0eGa1+WLtaw4w fy2mioLs2KtPs HCTovcHwkSiwOPJ8s0KuU h12O0FirSemt5NdNue0jl 47uNZmf0Z6tBB1NDtwMSL orJ3mUHhlVeG4 YWStLoRerQ53uBWgNKomT p0nuUcbeIexSC1lIFTexe smAYLczM5jDKBelFEhnWi hNF1eZNSfsfwf i001TdHgPLK5LBUfyNDeJ 2OeaY9qZgDcTUDxWIWsT2 MqtPErCZodS091ORggSsB 1AZGajrNyS2Sx IIXbxYqaJiD4c5H0Fg8Pp 6YgfjmcIZC1TGugYXAdKe M9AsNaTqN6T3QfHoh3CIT weFpcOQ7yP7Vr YHRhswzkpokunUG7MJHhE UFbyQ76mXDrIDxcLt6nd3 M1k040VHFtWOJeyF17Be0 udDogMTBwdCBU uU9xgsfwk2oiacwcZrIpK NMnLFt7RWs0USTqsJlvGt KjXFA1HoX9WVK3fARxzV6 xsZiyagiebD4s Oyc+T08quK1xKMT3HKU0g kgkMQOmxjYjZH25DQ75E9 RyPjwvdGFibGU+PGRpdiB gcEimND0wEpFe c9cvc2VoERnfA3QsYQRkW LzqKuz7BXMzDVG1sMI5dZ 8pSWEiLFdit2A9tNM9K9G dqnNoja2sr0al QUFoIWqfG04gqPOsh2Y9U BVqtZK7GUAgiTvaAuNbtA 93Oyc+DQSiqLrbi4DjSrn am6oko2zoxBu3 QtBvCBWdxhNndNyyWSN4p 6GmXr63T40cTBpsSACdRV UrUFVkVVAzrXtlia4nvB8 wIi8+PGNvbCB3 jFV7hM6mZNDwSuE1PElqN 350GmRiuVHcLeyvx5ksm9 oskGb4QkNhQDHuaeEpwWw wBJT7p8GtMy16 Z71dQFxbLPAaHEVbBNDiG ADowMofwh5ugT9zJy2+PC 9nc5pbts42oZ56uFA+PHR vRON5pIdxCDou IKZboS6oWXfcPsS7ALQaA hZlqD40qGSrLFwpSk7fmH ygmImhLE7jKNGeyetvw61 2XzMmo0ubOETr gGUjMQbhJNJ8L18hp8J3O HDcFKJdUGJ6qPL9zR8iyJ lnbjogbGVmdDsgdmVydGl fIAtcPXsnR827 IHRvcDsnPlBhdGllbnQgT pBfTKu5F9HsArc7VFYrrF muCD7ejFMyQPpnLq7iwRe eoOcqSA1fRIHf xopjx185IhKdm8lhMIOpc YYhQEtdMTZ7V35ez3G3DT VmQRNiDMB1kWM6sW3yxCp nbjogbGVmdDsg yjCaqGqpJYssJGwnQ995N HRvcDsnPkJpcnRoIERhdG Y9CU32XK25uHUmv5V8jZD 6O6PoBKYuzsrq bpujjQZ0HWAaRDDmmG10S b5gcJvcOy9pRUXcLMQ1NN CaeRFhZ5NgiO6oYxAnRRU tHVLpY6HniZPk HSwcI372MZpkHxT1XVZtn rHqW3OyULOkmJfgUjZ7z6 F8Fd5RH0M7GS74MP82uAY ep6N8rBT7B7Fu AHTiukstnmimmDJ7MXJgB PPqwD54Gh7cmComFe0eEF WxCVY8BEMlsQPeS7SraG7 yOiAjMDAwMDAw S5JgxMEpKNbrT992CMhoK hJ5ZULqgrUlG2WyRIZxxN hyPjI0g4P5Qu3XBKr0RT0 9JD76zZSjy5V1 nJW0Q0ZhBRHdtaudlgxej MH6YRQeQBKfyD24Ba9kwJ xiVc7xTDOdGNA3WKWzqTE lF5UeeX8nJiPe SQOnUHQrF2QubEReVNksD 403RRfsYdA1AYTlqmWnE4 BsZUMekBncQdU5f9W6Cx7 QETNrLR80ZZA3 gOL9OM64GQ99J0GnVocuw GFibGU+PHRhYmxlIHdpZH RoPScxMDAlJyBzdHlsZT0 zDu2sMXOhNOCa iYqfdBUnTgNjr0rcNJCdU VsaTY9nrYzzQ8IbcIX1OL Xjg8o0Pf94C23eJ9BmoOL +XUVmjLV7rIO5 cB0eDsOsUeS3IRimZ702Z hTrtKGxVigui3uax8lexQ k0DfG8DJHlmeRoyZqkVLS 2t2TnEd33Z29j IHdpZHRoPSIxNSUiIHZhb Skpqp2jiS5lAm1+PGNvbC U4tBP0rV4eWdJlTpB3ATa rI599EtGkwTGn Gyxhr7llp5foiMm0RrLxD SUldvWywXkaPNI0w1NySy 15G7NwqSydi3SkIcn7zf9 0yXSwd3L7wXZ1 H6TqVQTbeqnqgJBwvCiqQ P4yJXJjtwrfVAZyiE9zMB HhR3g3VoOaQqR2IHidV3G bylY1RLFikIIs NJuqBNN3G64kp3E7VLNlX PTwETK7yPV3uH0awSaesg ogbGVmdDsgdmVydGljYWw zKCffQ125IGKn vFxmPLXbpK3sLIJauKMfq IsmCG1rQPPalpsyXqhDQS 1BTiwgRUxJWkFCRVRIIEF OTjwvdGQ+PHRk XSS6jXhkJPdvBKTayR7oS THhX8t4GqZiDqV2NVxdW8 HhMBKgtsyiWb81mA4tTqQ jQkT3IYmtG6Io ruT6NKHfsMXeZCdlMIV0P 61uh6H6LLMxGBHmMAH4bK V5pB6ieAujaekehUMnsUq gdmVydGljYWwt GKidG827OVPzcGmqIiA0Z rBdJiO5FzQ8E9IfZdn5OM DiyMyeKC2mlASqOYalDt9 rgMmceTnxCH7b MYLnrtznRKUojA6lWDFvn AHjdVncQV0kHICtiyudj9 39PbPeBOS1CRNedHUhL5F phK0pZtHuDBKx OAMwL3KadVZgIKxiH998Q YcwFdI9HXMuwrReZ0EiCP UszHycInT2l4W7Cv45WXZ ZZWFyczwvdGQ+ RYVsJTE2qMdbAJqnINBat E5oDMWnF9n7TbEkPgU3JZ gyF6FcEAPcytvaVd43iL5 oOyGqHeO5IMjy H9AqxjD9SIVzpVBtDEkoE MQ4G91ln8S5JDRsETIpQO W0dWN0tG1gaMusvgyzaOZ mdDsgdmVydGlj GXfrBWtjI303WQSpvIxwD kZFTUFMRTwvdGQ+PHRkIH A2rKboXMfqTQAasG2xPWG pK6t4EqKkNfI2 SIwzO0MnWHOezrxeRe67d M8zNyKrNuA6LOszM0Lfcn C5DXFqdQDsRTilRJP0J50 yl6E5XAVrZYEs IZA9hQK1qX5jiIunmavoe GVmdDsgdmVydGljYWwtYW njB344YJCgdEifTfWohHQ EpFTjQSA2EI65 JX35R8MzBaxyjNGuoNJ+P HRhYmxlIHdpZHRoPScxMD MtTnFsjBrmNZ4mRy4wDYC yLWNvbGxhcHNl HdEek3joGKQgTFkhCV9oz XhgS5YcgTA5GCBgw9e0Zo 76H77rU8DlxHP+PGNvbCB 9gSK7dX8nRkUo ZhL3GHzvD726IuNsrQRsC rkoi0wpi4lmqIe8EmKaUB SgrnVgvUknRTB2j9DrRi4 5N15iDCizICRi ZCBoCOQbDCGupPlrru1ja G9wIi8+IQExfLV5bFK4lH 9aSoOsOnJ9CDafW487FuK nfHVnMisxK15z C0ItcYP+SQIlWtm1OHApm CkmIU2mwNYyASxwJt5pCQ P1NtRfHxIjXTyuA0MtMWQ pbmctcmlnaHQ6 QKOqWCVqwD56Lx6iiAhxY o1fHYJnTOZ9SNTcuJToM7 FkeJ1xArPsJRHdPOKsB6J yrUKbDByeX306 XYzdZsW6AQKrlsAeO0CiJ KRhrHkhXuC0x8Q5Fw0ZrY kghBDuMH3vHhGvJTs4X7H sQxh2DSFzbMhk AF6ikSGeIYsfTd8oiLhjl TcrXM2oGZTvtqbsi061Gb Avq2jzMNIpwBEvXFwzKYO 4Y27iv9D3DIEm XCLaRHU3iBQ2vF4vuTdce jogbGVmdDsgdmVydGljYW sjPJmdE189UDMvzPttSaN RKox8T1BoHrg8 BAIsbXsfGS7isZNzUOvmG h0miBbdwInjNN8oOJMuei cry290AqTgx5dpNSZuiAH yXYiiYIJ4D25e k5O0ZCEnCFIgFLI8wZO8u J3ndNbaomdrvPIbdGngzs FtvIbnBAcoKUptD258TWY ihQqgAt5BObg8 I7CzJri1GAKqmAkrXL6ep UWbWVedTm3rvJfbeBshSQ 6mGGMynbgov263TpYcp1f kIDEwcHQgVGlt APE6P21hu6I7ZXCmEHNyO IB1oVY4gH0jwZunkkrjcU VmdDsgdmVydGljYWwtYWx fM018ZHPwgZux PlBheWVyOjwvdGQ+PC90c h51E9CyRzjcQjk7OYIbZA Z1bEP9rM8lTUPkQYsjb1G 5lCZ2I6RihfGo ci1 (more content not included)... [facility] Consent Formson 01-23-2021 Consent Forms [id number] .00[facility] [facility] [place] [place] Record Summary Primary Physician: Hua Oglesby DO Finalized Date/Time: 01/23/21 13:00:07 Pt. Name: IKE FLANNERY/Sex: 1970 FEMALE Med Rec #: [id number] Physician: Hua Oglesby DO Financial #: [id number] Pt. Type: D Room/Bed: / Admit/Disch: 01/21/21 06:05:01 - 01/21/21 10:08:00 Institution: PACU Case Times MAGR Entry 1 In PACU I 01/21/21 08:20:00 Discharge from PACU 01/21/21 09:04:00 I Last Modified By: Lisa Connell RN 01/23/21 13:00:04 Finalized By: Lisa Connell RN Document Signatures Signed By: Lisa Connell RN 01/23/21 13:00 [facility] Consent Formson 01-22-2021 Consent Forms [id number] .[facility] Discharge Instructions [id number] .[facility] Telemetry Stripson Telemetry Strips [id number] [facility] 01-21-2021 Anesthesia Note Patient: IKE FLANNERY Age: 50 years Sex: FEMALE : 1970 [...] on: 01/21/2021 08:25 EST] Gen Jean MD [facility] Anesthesia Note Patient: IKE FLANNERY Age: 50 years Sex: FEMALE : 1970 Associated Diagnoses: None Author: Gen Jean MD Preoperative Information Anesthesia history: Patient history: Nausea and vomiting with anesthesia, No difficult intubation, No malignant hyperthermia. Family history: No malignant hyperthermia. Review of Systems Respiratory: No shortness of breath, No apnea. Cardiovascular: No known GA, No chest pain. Gastrointestinal: No heartburn. Health [...] All Problems HTN (hypertension) / SNOMED CT 2162856899 / Confirmed Histories Family History: No family history items have been selected or recorded. Procedure history: Abdominal hysterectomy (420997709). Arthroscopy of knee ([id number]). Lipoma ([id number]). Comments: 01/04/2021 11:19 OSKAR Becker RN, Milana [...] Results ECG interpretation: Within normal limits. Plan [place] [employer]#( A) physical status classification: Class II. Anesthetic Preoperative Plan Anesthesia: General. . Anesthetic plan, risks, benefits, and alternatives discussed with the patient and/or family. Patient verbalized understanding. Family/Guardian present. Informed consent was given. Consent was signed by the patient. [Electronically Signed on: 01/21/2021 07:10 EST] Gen Jean MD [Verified on: 01/21/2021 07:10 EST] Gen Jean MD Normal [facility] Inpatient Patient Summaryon 01-21-2021 [place] [id number] Patient Discharge Instructions Name: IKE FLANNERY : 1970 Patient Address: [address] [place] [address] Primary Care Provider: Name: RANDY CALLE After you are discharged if you find you have any questions, please, call [phone] ext [phone] to speak to a nurse. Discharge Diagnosis: [...] problems; contact the [facility] 22/09 Crisis Hotline -Text 4HZIR dt [id number]. If you received any narcotics, sedation, or [...] business decisions or sign any legal documents [facility] would like to thank you for allowing us to assist you with your healthcare needs. The following includes patient education materials and information regarding your injury/illness. IKE FLANNERY has been given the following list of follow-up instructions, prescriptions, and patient education materials: Follow-up Instructions With: Address: When: MYESHA VINSON [address] [facility] [place] [address] Business (1) 01/30/2021 11:00 AM With: Address: When: RANDY HALLMAGALYS [address] [place] [place] [address] Business (1) Medications During the course of [...] or concerns, please call the office at [phone] Viruses or Bacteria What?s got you sick? [...] (except strep) (more content not included)... Normal [facility] MAGR Intraoperative Recordon 01-21-2021 MAGR Intraoperative Record MAGR Intra-Op Record Summary Primary Physician: Hua Oglesby DO Finalized Date/Time: 01/21/21 11:10:34 Pt. Name: IKE FLANNERY/Sex: 1970 FEMALE Med Rec #: [id number] Physician: Hua Oglesby DO Financial #: [id number] Pt. Type: D Room/Bed: / Admit/Disch: 01/21/21 [...] Role Performed Surgeon - Primary Anesthesiologist of Psychologist Social Record Time In 01/21/21 07:22:00 01/21/21 07:22:00 01/21/21 07:22:00 Time Out 01/21/21 08:17:00 01/21/21 08:17:00 01/21/21 08:17:00 Procedure Arthroscopy Knee(Right) Arthroscopy Knee(Right) Arthroscopy Knee(Right) Last Modified By: Dorothy Archer RN, Barbara RN Long, Barbara RN 01/21/21 08:21:11 01/21/21 08:21:11 01/21/21 08:21:11 Entry 4 Entry 5 Case Attendee Nemo Mendez CST, Regina CST Role Performed Scrub Personnel Mail List Processor Time In 01/21/21 07:22:00 01/21/21 07:22:00 Time [...] related to positioning General Comments: RIGHT KNEE SORENSEN Skin Prep MAGR Pre-Care Text: A.30 Verifies [...] 07:55:36 Post-Care T (more content not included)... [facility] MAGR Postoperative Recordon 01-21-2021 MAGR Postoperative Record MAGR Phase II Record Summary Primary Physician: Hua Oglesby DO Finalized Date/Time: 01/21/21 10:17:55 Pt. Name: IKE FLANNERY/Sex: 1970 FEMALE Med Rec #: [id number] Physician: Hua Oglesby DO Financial #: [id number] Pt. Type: D Room/Bed: / Admit/Disch: 01/21/21 [...] Signed By: Marianna Gerber RN 01/21/21 10:17 [facility] 03-23-2020 MAGR Preoperative Record MAGR Pre-Op Rec ord Summary Primary Physician: Hua Oglesby DO Finalized Date/Time: 01/21/21 08:40:07 Pt. Name: IKE FLANNERY/Sex: 1970 FEMALE Med Rec #: [id number] Physician: Hua Oglesby DO Financial #: [id number] Pt. Type: D Room/Bed: / Admit/Disch: 01/21/21 [...] Signed By: Gino Painter RN 01/21/21 08:40 Normal [facility] Operative Report - Surgeon/P aster 01-21-2021 [...] stable. It was then placed in leg sorensen sterilely prepped and draped in usual fashion [...] on: 01/21/2021 10:16 EST] Hua Oglesby DO [facility] Patient Handouton 01-21-[address] [...] or concerns, please call the office at [phone] Normal [facility] 01-12-2021 Albumin [Mass/Vol] 4.3 g/dL Normal 3.6-5.1 [facility] Comment on above: Performed By: #### 7 600, [id number] #### [facility] [place] [address] Piped Buttonhole Machine Operator: Heraclio Miller MD Albumin/Globulin [Mass ratio] 1.8 {ratio} Normal 1.0-2.5 [facility] Comment on above: Performed By: #### 7 600, [id number] #### [facility] [place] [address] [employer]iped Buttonhole Machine Operator: Heraclio Miller MD ALP [Catalytic activity/Vol] 60 U/L Normal 37-153 [facility] Comment on above: Performed By: #### 7 600, [id number] #### [facility] [place] [address] P[employer]ed Buttonhole Machine Operator: Heraclio Miller MD ALT [Catalytic activity/Vol] 17 U/L Normal 6-29 [facility] Comment on above: Performed By: #### 7 600, 99023 #### [facility] [place] [address] [employer]ed Buttonhole Machine Operator: Heraclio Miller MD AST [Catalytic activity/Vol] 18 U/L Normal 10-35 [facility] Comment on above: Performed By: #### 7 600, [id number] #### [facility] [place] [address] [employer]: Heraclio Miller MD Bilirubin [Mass/Vol] 1.1 mg/dL Normal 0.2-1.2 [facility] Comment on above: Performed By: #### 7 600, [id number] #### [facility] of [address], [address] [place] [address] [employer]: Heraclio Miller MD BUN/CREATININE RATIO NOT APPLICABLE Normal 6-22 [facility] Comment on above: Performed By: #### 7 600, [id number] #### [facility] of [address], [address] [place] [address] [employer]: Heraclio Miller MD Calcium [Mass/Vol] 9.3 mg/dL Normal 8.6-10.4 [facility] Comment on above: Performed By: #### 7 600, [id number] #### [facility] of [address], [address] [place] [address] [employer]: Heraclio Miller MD Chloride [Moles/Vol] 105 mmol/L Normal 98-110 [facility] Comment on above: Performed By: #### 7 600, [id number] #### [facility] of [address], [address] [place] [address] [employer]: Heraclio Miller MD CO2 [Moles/Vol] 28 mmol/L Normal 20-32 [facility] Comment on above: Performed By: #### 7 600, [id number] #### [facility] [address], [address] [place] [address] [employer]: Heraclio Miller MD Creatinine [Mass/Vol] 0.86 mg/dL Normal 0.50-1.[address] [facility] Comment on above: Result Comment: For patients >49 years of age, the reference limit for Creatinine is approximately 13% higher for people identified as -[place]. Performed By: #### 7 600, [id number] #### [facility] of [address], [address] [place] [address] [employer]: Heraclio Miller MD eGFR NON-AFR. ZIMBABWEAN 79 mL/min/1.73m2 Normal > OR = 60 [facility] Comment on above: Performed By: #### 7 600, [id number] #### [facility] [address], [address] [place] [address] [employer]: Heraclio Miller MD GFR/1.73 sq M.predicted among blacks MDRD (S/P/Bld) [Vol rate/Area] 91 mL/min/{1.73_m2} Normal > OR = 60 [facility] Comment on above: Performed By: #### 7 600, [id number] #### [facility] [place] [address] [employer]: Heraclio Miller MD Globulin (S) [Mass/Vol] 2.4 g/dL Normal 1.9-3.7 [facility] Comment on above: Performed By: #### 7 600, [id number] #### [facility] [place] [address] [employer]: Heraclio Miller MD Glucose [Mass/Vol] 86 mg/dL Normal 65-139 [facility] Comment on above: Result Comment: Non-fasting reference interval Performed By: #### 7 600, [id number] #### [facility] [place] [address] [employer]: Heraclio Miller MD Potassium [Moles/Vol] 3.9 mmol/L Normal 3.5-5.[address] [facility] Comment on above: Performed By: #### 7 600, [id number] #### [facility] [place] [address] [employer]: Heraclio Miller MD Protein [Mass/Vol] 6.7 g/dL Normal 6.1-8.1 [facility] Comment on above: Performed By: #### 7 600, [id number] #### [facility] [place] [address] [employer]: Heraclio Miller MD Sodium [Moles/Vol] 140 mmol/L Normal 135-146 [facility] Comment on above: Performed By: #### 7 600, [id number] #### [facility] [place] [address] [employer]: Heraclio Miller MD Urea nitrogen [Mass/Vol] 15 mg/dL Normal 7-25 [facility] Comment on above: Performed By: #### 7 600, [id number] #### [facility] [address], [address] [place] [address] [employer]: Heraclio Miller MD LIPID PANEL, [facility] 11- Cholesterol [Mass/Vol] 173 mg/dL Normal <200 [facility] Comment on above: Order Comment: FASTI NG:NO FASTING: NO Performed By: #### 7 600, [id number] #### [facility] [address], [address] [place] [address] Piped Buttonhole Machine Operator: Heraclio Miller MD Cholesterol in HDL [Mass/Vol] 69 mg/dL Normal > OR = 50 [facility] Comment on above: Order Comment: FASTI NG:NO FASTING: NO Performed By: #### 7 600, 55914 #### [facility] [address], [address] [place] [address] Piped Buttonhole Machine Operator: Heraclio Miller MD Cholesterol in LDL [Mass/Vol] [...] LDL-C. Campos CAMARENA et al. MARQUISE. 2013;310(19): 9145-4975 ([email or web address]/[email or web address]) Performed By: #### 7 600, 86069 #### [facility] [address], [address] [place] [address] Piped Buttonhole Machine Operator: Heraclio Miller MD Cholesterol.total/Choles terol in HDL [Mass ratio] 2.5 {ratio} Normal <5.0 [facility] Comment on above: Order Comment: FASTI NG:NO FASTING: NO Performed By: #### 7 600, 56741 #### [facility] [address], [address] [place] [address] Piped Buttonhole Machine Operator: Heraclio Miller MD NON HDL CHOLESTEROL 104 mg/dL (calc) Normal <130 [facility] Comment on above: Order Comment: FASTI NG:NO FASTING: NO Result Comment: For patients with diabetes plus 1 major ASCVD risk factor, treating to a non-HDL-C goal of <100 mg/dL (LDL-C of <70 mg/dL) is considered a therapeutic option. Performed By: #### 7 600, 64153 #### [facility] [address], [address] [place] [address] Piped Buttonhole Machine Operator: Heraclio Miller MD Triglyceride [Mass/Vol] 68 mg/dL Normal <150 [facility] Comment on above: Order Comment: FASTI NG:NO FASTING: NO Performed By: #### 7 600, [id number] #### [facility] [address], [address] [place] [address] Piped Buttonhole Machine Operator: Heraclio Miller MD Coding Summaryon 01-09-2021 Coding Summary HTMLBase 64 MhiobqsuJBy2bAa+PGhlY WQ+WD3OJFYcR42qwFBmkE 7PC3fIXD9AFWLOZTRJKR2 SPU8apPT8KAzpS5JeunMe IarsuMUqEY64RRi6KZW3w XpfRTrojT9pdZBvF8e5Gl GeZS26jH36VNmkNEXtYpG 3LjZpbjsgbWFy L4keJlHwgOAvYkz+PHRhY mxlIHdpZHRoPScxMDAlJy YviWaeYY2rYl5qZKGrREH vbGxhcHNlOiBj g9abETMtMZotRB0crPiwE 0LqaGV0YNDds5d1Te85vP I+TYXrMGH4aQucSRads82 4XvJcv9jcIEN0 gPMiFNxkSXJ2C53ly1D4F IUwIWQlUMW0iDM5xN9ovP qknracX5JqaLFbWhR5BCO 0yZImkX4rwItv chmpuV7eIot+U12CRV4UD JEPBK0IJtl5R8MdDwbgsX I+IB24GMXoFX69zGDnvHF su4jwwLc4RyUq TZCgZBJ3wWsyBHebd3SxH YAiT99qaHDuu0R0YYGwyM vvjFAxLoKlpCY3gR8bKCm ujstas8vqyqtv Jyorv8zmsm96iO44I29yY LbbPWMhCGD3NNJiZGMvbI iego6kyE0hGa0+ULdhj4p rr4qpsSo3ItEe JNWzieWlsMlaWAK7f9MeK y41L6IanMlcm2UbCxr8yu 49cRTzv8D7bWO0NPqaMAH kxD3lOJxhKwH1 XNRqUrCepD27mRQsMFfsQ p6plIthoVsaBK5iAUDqeq gzXVBmdO7gLOInpHTleNh rGL9pPODwqxwe n093BoUmKJL6LVVofSIkW 3HsyK9rYxFgNNEzUJGxN6 AooCWsPIuqR957BHuoUgP 8ZPWcbhLlL8Yg JUIguVmvSdX8l6Z3Im3Mu 5AxumfsAAU0VKafYSEiFr LaVqBvNpW5S4UjXpo0SLG vfCbuTC8cT6Dk GVKdogmefagcqAG4QDUnG UXypO87dYDxUSjhMj4on9 W8u087IPBpXBLpwO26Es8 udDogMTBwdCBU dQ1dfpziy7tdckjfYkJlN MZhXBz2CKa4OFExbLxvYj JeKYL6FtB9RPX5fJJzzG1 anIbbqwjqrX0p Oyc+X74jyJ7oTTR4UZH4w rylSPYmxwJwHD91JJ43O7 RyPjwvdGFibGU+PGRpdiB ahNimRI7kNoOx a8kvx6GwPJilW3EnMAZdJ FxoFbq8VZOuKNQ4dXK1tG 7vZYAhMMjhm1Y7iQP0V9Q hbbRggw9pw9ec RWKgOTdoJ97zgDUvv8Q0T NKgjLL2YGVjgQewMzHokB 93Oyc+PYWjpRqli2MlKcw qs5ata7cmxHk8 XpFkKFQiqqUwfPqpFEQ0j 9HdLw75J33cUJquFWTsRJ AvFXZbQTBdjWndlq0dmM0 wIi8+PGNvbCB3 uYF0rD3aYQGqLbH6DZthI 245XqHruMTdBzjav0ivs1 ixxSq3XxNjARChubLugOl gCMV3z5LyFg99 Z20rAZxlDBAzISUwSTCcF QIdeByppn0raH7vQq2+PC 7aw9owyk70fF67zIY+PHR dZQL0yTvkZHrz NDUmlB3yXIjpYbD3LLQjD eGurL95uSQcMFjaPl2dlA edlOugYS3rAXAipeeen90 3SyKiz6knVNAp oEBcRLauEVB4N54qw1A6Z CRaTZTzOAF7iCC3kJ4bxI lnbjogbGVmdDsgdmVydGl sUIcqJLrsD903 IHRvcDsnPlBhdGllbnQgT wYfXKk6E5SrPqw1WCSzzU ruQJ9avPTpUBkqRv5eoVy wtTvoZO6rEVMw vxbln873BaNkq6haZBNyh PUwZEgpONV9L66ng9I9MF JsIQJjAGZ5uHB6rF7bhKq nbjogbGVmdDsg jzWwjDxkKArfEWwxI264U HRvcDsnPkJpcnRoIERhdG T3MR44VU78vOTjw9T0mBL 6O8QlJZGohmkq iebfxKE2JTFjZRLasI82Q t7gdWrvUh6vEIPmTBV4WG VbyJWbK7UvqX5rGuMrZNI eHYRxH7EneGSj WDhwJ901VUlfQmD9JVXsj xDgG4YdYYRvxIklHlF7m4 K3Zr6UL7R0TF27AH60nGU xc0L0uYR2U5Yh ZZNvpfeqpvxleHL3JAMpJ GPhaE61Ob4vwLfoAv6aDT NeXJY9AAHecNLcZ6PruN3 yOiAjMDAwMDAw E6WkpNOzSQdoR184JYvoQ yQ4LCGxgjMeE4JvDTRbpB cyFqH9x6W2Sv6RYGq8CL7 4YP59sCRmp1T5 rOQ7F5NrYNXmzwzhioied JM3ORBuXXGprL34Mb8sbX zqSz5vGVOuBIA7OXPsyYR wL4OdwF7pVmFa FDAbTFIrD2ZlhBIlZHdqA 675DLzeAiY9BGDaxsIfM0 HkSUDkaDylBdM0p0R2Yk1 VJKNuEC42CYS9 dFY6OF01BL22J4RoLjzxa GFibGU+PHRhYmxlIHdpZH RoPScxMDAlJyBzdHlsZT0 rDj1jRGAwLKUr aAouwSHoZgUex1rjAOVtK PjfEI7cgRjxG7AqnSE8KJ Nbk8q8Vj01E95qL7VgnCD +AUHwfOK0cVP3 lG5bYsEqWkH2YEnoI358J vTcwULnSngju0idv3cnvI q3FmM1SIAbbiIyiGrdLXD 5j3BhMg91Z56q IHdpZHRoPSIxNSUiIHZhb Gtdak8qkG7aEa5+PGNvbC D6mOT1xO0mIaVwWoN0KOh eY138ObRqcSUd Pjlhl1qcy9kxcTg9DrRrW KQmqhGkpGutSXP1t8SqSd 70Z1AylKdng4MaUla6vv8 2lBBmm8L8qGF8 Q5RsWXUxwypfhKYtvPcbJ E4mUFLkjcyqDQCsaD0uEW FmG7x7MwUnOyZ7FBprJ6R lmyS3ARJggJQw ZZhdIKC0A83jq5M3BONrQ TOkXUO1aBL6xR3xoSsowu ogbGVmdDsgdmVydGljYWw mLQvcI896WFCs lHurEVZxsY8cAQQreRAqx PfgGP0tDAMmoegbMpwEVW 1BTiwgRUxJWkFCRVRIIEF OTjwvdGQ+PHRk MQW8hZnsSQnbRMDdtM2yN ZVrL9u2UiVmEpJ7ILocE3 XaNEWkvyhfOq16bK7jKcS oGaO4FCjfC3Xl elX8TODjoMYxIBrgUTD1P 68ox9N0WQSxYPEaKJM6dX R0bU3okZbyeowhiWTxzHm gdmVydGljYWwt ORlpS181SBBbtGmxTiO3Q aMaIzQ1AiA4C8IlBgf2SI UxsMexYY1trQHcNMlhXe9 wxXpvnCtmPI5t XNPzwpekVOBzzF9pZABao BVabLmfKX2uBZUkrrxlg6 63GjQrFLO9QHLdlRHhZ9H pgW2mGhCuRLWf NJWgC3SagMErKJidV879K MzgUyV9KUOjmrDfJ0QpZN XgvYncCrA7r2D6Hn71HRN ZZWFyczwvdGQ+ ZFRbMWY1dYlmVFikWWWxp D8hOYDnU2n3MvHcYtC1PT yzQ8IsYFVtvtbyIw88jF0 iIxYfMpF0HFah J7IfdcI1YRIhkZQfFHfrZ QR5C30sl6J3QFQvKSQzPH I7kGK7eC1vdGydemkleGQ mdDsgdmVydGlj QIlnDVyvH052SZMaqWwjS kZFTUFMRTwvdGQ+PHRkIH X4lWglIEsoAECzqZ6iJYJ xQ1v6ZqWwWjX6 TBfiM8EmFYIhursnIe73l F6jMwWdUsS7MJkuU5Jgqi R3SZCdvYNoQBerZUD6U15 ib0C9EXToHIMr NLP4bWS7hM7xdNejhhjmu GVmdDsgdmVydGljYWwtYW olS944CFPhlQgtCj4LTZ6 4BZ15N5HzLpjm dGFibGU+PHRhYmxlIHdpZ HRoPScxMDAlJyBzdHlsZT 8cFy8fLOPlNTCadKqseBW vRpNni0ztPLSe WXrcEF5cwSvuY9EqqIU8W JVmg3l4Oa78V98kE5EmwC A+YPMwjVB7dMU3dV5vMeR dLvC4VArpC249 QdTfvVOmWpyrr7kof5shp Cj5WgQyBRKmpyRskFfnQJ V0c2NjSs47I53tEYztPDS oPSIyMCUiIHZh eMfuji3xtU2tSu5+PGNvb XT9dOT3kL4sXkEsNyS5SG uyI071IsUzfHZqRdioZ05 oQ8QjzMK+PHRy Ihq8NHHkmFytNU4mcAJjX VckAu7aLND8SwAvUcEoQE clG2JrOKSobaqgfzvrrHV 3YOOjPODqnK95 Nc5lpHvtCq3cRTUwVPS6R LNaiMVlS3TamB3bEsXaWA DeQUPmG0RiyEOuCUdzY90 4NProEiK9NVPl txKmZ9VnDABthHkzRxM4m 9N9Qk8ZjOvoyIYpLB3cJd EjFMc7D7XgFgb8BFNgoIc nWC4zzZZxQYrb Zo1wkQkdqCssGT6jADFda crtz981YoCup3ixPTQgsD RzCQloWID2Q93jv0F3BZO gQAFjGRJ8aYN1 oC4voHoywtjetWHxsDbaw zFjsXktZUvgUTpgI118AW NncSorCwERJqq8T7ZvUmt 2YWQkzEeyFW8v rDRfBVhyZq7xkEfxsFpvX F4fMXBfmapec559NwMnl8 yzLQVqaIXeDVgjKMZ6G57 ud0D0JOXjKXRh DUG6cWS2eF1mdUlfymhmk GVmdDsgdmVydGljYWwtYW srN462TJXxiEdbRk0SGts 6F2RcTld6TXMd sHjdXI0qoMTaWZvjLl5vs FnxuBzwSV4cTFQwtjbpl6 87YoQkd1cgCNGuyPLpIXu aFMA7S08aj1H7 POQpVFAuPRB4fPT6pF9nj GlnbjogbGVmdDsgdmVydG yoDIvqLTpdM467FDHnkGp nPlBheWVyOjwv dGQ+IX95ml89D3CtUeayM oq5PTHsDYI7xNW0uH4yYV ZuYTghh3K3wVZ6U1KapzA kbg4oq2ldHXLe ZTo (more content not included)... [facility] Consent Formson 01-08-2021 Consent Forms [id number] [facility] Progress Note - Nurseon Progress Note - Nurse PAT review for 01-21-2021 surgery reviewed per anesthesiologist, Dr. Gutierrez- no additional orders received. [Electronically Signed on: 01/07/2021 14:24 EST] Elvira Navarro RN [Verified on: 01/07/2021 14:24 EST] Elvira Navarro RN Normal [facility] .Auto Diff 101-04-2021 Auto [place] % 8 % Normal 1-12 [facility] Comment on above: Performed By: #### 1 [id number], [id number], [id number] ####[facility] (DEFAULT)[address] [place] [address] Baso Abs# 0.1 x10 Normal 0.0-0.2 [facility] Comment on above: Performed By: #### 1 [id number], [id number], [id number] ####[facility] (DEFAULT)[address] [place] [address] Basophils/100 WBC (Bld) 1.2 % Normal 0.2-2.0 [facility] Comment on above: Performed By: #### 1 [id number], [id number], [id number] ####[facility] (DEFAULT)[address] [place] [address] 76592 Eos Abs# 0.3 x10 Normal 0.0-0.4 [facility] Comment on above: Performed By: #### 1 [id number], [id number], [id number] ####[facility] (DEFAULT)[address] [place] [address] 81117 Eosinophils/100 WBC (Bld) 3.6 % Normal 0.9-4.0 [facility] Comment on above: Performed By: #### 1 [id number], [id number], [id number] ####[facility] (DEFAULT)[address] [place] [address] 35555 Lymph Abs# 2.6 x10 Normal 1.3-2.9 [facility] Comment on above: Performed By: #### 1 [id number], [id number], [id number] ####[facility] (DEFAULT)[address] [place] [address] 84596 Lymphocytes/100 WBC (Bld) 34 % Normal 14-48 [facility] Comment on above: Performed By: #### 1 [id number], 7466542, [id number] ####[facility] (DEFAULT)[address] [place] [address]30 [place] Abs# 0.6 x10 Normal 0.0-0.8 [facility] Comment on above: Performed By: #### 1 [id number], [id number], [id number] ####[facility] (DEFAULT)[address] [place] [address] 76877 Neut Abs# 3.9 x10 Normal 1.5-9.2 [facility] Comment on above: Performed By: #### 1 [id number], [id number], [id number] ####[facility] (DEFAULT)[address] [place] [address] Neutrophils/100 WBC (Bld) 53 % Normal 44-88 [facility] Comment on above: Performed By: #### 1 [id number], [id number], [id number] ####[facility] (DEFAULT)[address] [place] [address] Standardon 01-04-2021 eGFR Non AA >60 Invalid Interpretation Code [facility] Comment on above: Performed By: #### 1 [id number], [id number], [id number] ####[facility] (DEFAULT)[address] [place] [address] eGFR AA >60 Invalid Interpretation Code [facility] Comment on above: Result Comment: Last Trimmer medina Kidney disease could be indicated at eGFRs of less than 60 ml/min/1.73m2. Kidney Failure is indicated at less than 15 ml/min/1.73m2 Performed By: #### 1 [id number], [id number], [id number] ####[facility] (DEFAULT)[address] [place] [address] 53457 Anion gap [Moles/Vol] 12.0 mmol/L Normal 5.0-19.0 [facility] Comment on above: Performed By: #### 1 [id number], [id number], [id number] ####[facility] (DEFAULT)[address] [place] [address] 03635 Calcium [Mass/Vol] 9.5 mg/dL Normal 8.9-10.3 [facility] Comment on above: Performed By: #### 1 [id number], [id number], [id number] ####[facility] (DEFAULT)[address] [place] [address] 86825 Chloride [Moles/Vol] 102 mmol/L Normal 101-111 [facility] Comment on above: Performed By: #### 1 [id number], [id number], [id number] ####[facility] (DEFAULT)[address] [place] [address] 73772 CO2 [Moles/Vol] 27 mmol/L Normal 21-32 [facility] Comment on above: Performed By: #### 1 [id number], 2603971, [id number] ####[facility] (DEFAULT)[address] [place] [address] 48056 Creatinine [Mass/Vol] 0.77 mg/dL Normal 0.60-1.30 [facility] Comment on above: Performed By: #### 1 [id number], [id number], [id number] ####[facility] (DEFAULT)[address] [place] [address] 79230 Glucose [Mass/Vol] 88.0 mg/dL Normal 74.0-118.0 [facility] Comment on above: Performed By: #### 1 [id number], [id number], [id number] ####[facility] (DEFAULT)[address] [place] [address] 92691 Osmolality 275 mOsm/L Invalid Interpretation Code [facility] Comment on above: Performed By: #### 1 [id number], [id number], [id number] ####[facility] (DEFAULT)[address] [place] [address] 37957 Potassium [Moles/Vol] 3.4 mmol/L Low 3.6-5.1 [facility] Comment on above: Performed By: #### 1 [id number], [id number], [id number] ####[facility] (DEFAULT)[address] [place] [address] 18075 Sodium [Moles/Vol] 138.0 mmol/L Normal 136.0-144 . 0 [facility] Comment on above: Performed By: #### 1 [id number], 2180418, [id number] ####[facility] (DEFAULT)[address] [place] [address] 46022 Urea nitrogen [Mass/Vol] 13 mg/dL Normal 8-26 [facility] Comment on above: Performed By: #### 1 [id number], 6590035, [id number] ####[facility] (DEFAULT)[address] [place] [address] 87803 Urea nitrogen/Creatinine [Mass ratio] 17.0 mg/mg High 4.6-16.2 [facility] Comment on above: Performed By: #### 1 [id number], 3850193, [id number] ####[facility] (DEFAULT)[address] [place] [address] 49470 CBC w/ Auto Diffon Erythrocyte distribution width (RBC) [Ratio] 13.7 % Normal 11.5-15.0 [facility] Comment on above: Performed By: #### 1 [id number], 7882390, [id number] ####[facility] (DEFAULT)[address] [place] [address] 52773 Hematocrit (Bld) [Volume fraction] 37.5 % Normal 33.7-40.4 [facility] Comment on above: Performed By: #### 1 [id number], 0135224, 55498701 ####[facility] (DEFAULT)[address] [place] [address] 90340 Hemoglobin (Bld) [Mass/Vol] 11.7 g/dL Normal 11.3-15.9 [facility] Comment on above: Performed By: #### 1 [id number], 8429239, 30567240 ####[facility] (DEFAULT)[address] [place] [address] 16305 Instr WBC 7.4 x10 Invalid Interpretation Code [facility] Comment on above: Performed By: #### 1 [id number], [id number], [id number] ####[facility] (DEFAULT)[address] [place] [address] 55502 Man Diff? Auto Normal [facility] Comment on above: Performed By: #### 1 [id number], [id number], [id number] ####[facility] (DEFAULT)[address] [place] [address] 32976 MCH (RBC) [Entitic mass] 26 pg Normal 24-34 [facility] Comment on above: Performed By: #### 1 [id number], 2105765, [id number] ####[facility] (DEFAULT)[address] [place] [address] 61232 MCHC (RBC) [Mass/Vol] 31 g/dL Normal 26-37 [facility] Comment on above: Performed By: #### 1 [id number], 6376479, 85556854 ####[facility] (DEFAULT)[address] [place] [address] 27397 MCV (RBC) [Entitic vol] 84 fL Normal 81-100 [facility] Comment on above: Performed By: #### 1 [id number], [id number], [id number] ####[facility] (DEFAULT)[address] [place] [address] 65269 Platelet 393 x10 Normal 138-427 [facility] Comment on above: Performed By: #### 1 [id number], 7394536, [id number] ####[facility] (DEFAULT)[address] [place] [address] 01261 Platelet mean volume (Bld) [Entitic vol] 9.7 fL Normal 6.3-10.2 [facility] Comment on above: Performed By: #### 1 [id number], [id number], [id number] ####[facility] (DEFAULT)[address] [place] [address] 25368 RBC 4.48 x10 Normal 3.70-5.30 [facility] Comment on above: Performed By: #### 1 [id number], 3638424, [id number] ####[facility] (DEFAULT)[address] [place] [address] 00456 WBC 7.4 x10 Normal 3.5-10.5 [facility] Comment on above: Performed By: #### 1 [id number], 6243500, [id number] ####[facility] (DEFAULT)[address] [place] [address] 17429 CULTURE, URINE, ROUTINEon CULTURE, URINE, ROUTINE SEE NOTE Abnormal [facility] Comment on above: Result Comment: CULTURE, URINE, ROUTINE Micro Number: [id number] Test Status: Final Specimen Source: Not given [...] By: #### 3 95 #### [facility] [address], [address] [place] [id number] Piped Buttonhole Machine Operator: Heraclio Miller MD Vital Signs Date Time Vital Sign Value Performing Clinician Facility 03-30-2024 15:58-0500 Body height 180.3 cm Marisela Cuevas APRNDataMotionY[employer]T [employer] Work Phone: [facility] 03-30-2024 15:58-0500 Body mass index (BMI) [Ratio] 27.91 kg/m2 [facility]ladimir [facility]uevas [facility] Work Phone: [facility] 03-30-2024 15:58-0500 Body weight 90.72 kg Mariselavladimir Cuevas LINE [employer]IVER[employer] Work Phone: [facility] 03-30-2024 15:58-0500 Diastolic blood pressure 82 mm[Hg] Mariselavladimir Cuevas [employer] Work Phone: [facility] 03-30-2024 15:58-0500 Heart rate 82 /min Marisela Cuevas [employer] Work Phone: [facility] 03-30-2024 15:58-0500 Systolic blood pressure 123 mm[Hg] Marisela Cuevas [employer] Work Phone: [facility] 03-10-2024 11:42-0500 Body mass index (BMI) [Ratio] 27.91 kg/m2 Evan Jay DO Work Phone: [facility] 03-10-2024 11:42-0500 Body weight 90.77 kg Evan Jay DO Work Phone: [facility] 03-10-2024 11:42-0500 Diastolic blood pressure 82 mm[Hg] Evan Jay DO Work Phone: [facility] 03-10-2024 11:42-0500 Systolic blood pressure 120 mm[Hg] Evan Jay DO Work Phone: [facility] 02-25-2024 14:10-0500 Body temperature 97.59 [degF] Jhon Rosado MD Work Phone: [facility] 02-25-2024 14:10-0500 Diastolic blood pressure 91 mm[Hg] Jhon Rosado MD Work Phone: [facility] 02-25-2024 14:10-0500 Heart rate 93 /min Jhon Rosado MD Work Phone: [facility] 02-25-2024 14:10-0500 Respiratory rate 16 /min Jhon Rosado MD Work Phone: [facility] 02-25-2024 14:10-0500 Systolic blood pressure 154 mm[Hg] Jhon Rosado MD Work Phone: [facility] 02-15-2024 15:58-0500 Body mass index (BMI) [Ratio] 28.87 kg/m2 Evan Jay DO Work Phone: [facility] 02-15-2024 15:58-0500 Body weight 93.89 kg Evan Jay DO Work Phone: [facility] 02-15-2024 15:58-0500 Diastolic blood pressure 72 mm[Hg] Evan Jay DO Work Phone: [facility] 02-15-2024 15:58-0500 Systolic blood pressure 124 mm[Hg] Evan Jay DO Work Phone: [facility] 02-11-2024 14:33-0500 Body height 180.34 cm Randy Furlong DO Work Phone: [facility] 02-11-2024 14:33-0500 Body mass index (BMI) [Ratio] 28.5 kg/m2 Randy Furlong DO Work Phone: [facility] 02-11-2024 14:33-0500 Body temperature 98.2 [degF] Randy Furlong DO Work Phone: [facility] 02-11-2024 14:33-0500 Body weight 92.98 kg Randy Furlong DO Work Phone: [facility] 02-11-2024 14:33-0500 Diastolic blood pressure 82 mm[Hg] Randy Furlong DO Work Phone: [facility] 02-11-2024 14:33-0500 Heart rate 90 /min Randy Furlong DO Work Phone: [facility] 02-11-2024 14:33-0500 Systolic blood pressure 125 mm[Hg] Randy Calle DO Work Phone: [facility] 01-25-2024 10:07-0500 Body height 180.3 cm Yves Coffey MD Work Phone: [facility] 01-25-2024 10:07-0500 Body mass index (BMI) [Ratio] 29.29 kg/m2 Yves Coffey MD Work Phone: [facility] 01-25-2024 10:07-0500 Body weight 95.25 kg Yves Coffey MD Work Phone: [facility] 12-29-2023 08:49-0400 Diastolic blood pressure 86 mm[Hg] Shereen Selin PA-C Work Phone: [facility] 12-29-2023 08:49-0400 Heart rate 111 /min Shereen Castilloreaux PA-C Work Phone: [facility] 12-29-2023 08:49-0400 Respiratory rate 14 /min Shereen Selin PA-C Work Phone: [facility] 12-29-2023 08:49-0400 Systolic blood pressure 143 mm[Hg] Shereen Selin PA-C Work Phone: [facility] 12-28-2023 21:30-0400 Diastolic blood pressure 95 mm[Hg] Rusty Clifford [facility] 12-28-2023 21:30-0400 Heart rate 85 /min Rusty Clifford [facility] 12-28-2023 21:30-0400 Mean blood pressure 114 mm[Hg] Rusty Cliffrod [facility] 12-28-2023 21:30-0400 Respiratory rate 16 /min Rusty Clifford [facility] 12-28-2023 21:30-0400 SaO2% (BldA) [Mass fraction] 94 % Rusty Clifford [facility] 12-28-2023 21:30-0400 Systolic blood pressure 153 mm[Hg] Rusty Clifford [facility] 12-28-2023 21:00-0400 Diastolic blood pressure 96 mm[Hg] Rusty Clifford [facility] 12-28-2023 21:00-0400 Heart rate 89 /min Rusty Clifford [facility] 12-28-2023 21:00-0400 Mean blood pressure 119 mm[Hg] Rusty Clifford [facility] 12-28-2023 21:00-0400 SaO2% (BldA) [Mass fraction] 96 % Rusty Clifford [facility] 12-28-2023 21:00-0400 Systolic blood pressure 164 mm[Hg] Rusty Clifford [facility] 12-28-2023 20:27-0400 Body temperature 98.24 [degF] Rusty Clifford [facility] 12-28-2023 20:27-0400 Diastolic blood pressure 86 mm[Hg] Rusty Clifford [facility] 12-28-2023 20:27-0400 Heart rate 95 /min Rusty Clifford [facility] 12-28-2023 20:27-0400 Respiratory rate 16 /min Rusty Clifford [facility] 12-28-2023 20:27-0400 SaO2% (BldA) [Mass fraction] 97 % Rusty Clifford [facility] 12-28-2023 20:27-0400 Systolic blood pressure 154 mm[Hg] Rusty Horton [facility] 12-21-2023 13:57-0400 Diastolic blood pressure 84 mm[Hg] Marisela Cuevas [employer] [facility] 12-21-2023 13:57-0400 Heart rate 96 /min Marisela Cuevas [employer] [facility] 12-21-2023 13:57-0400 Respiratory rate 14 /min Marisela Cuevas [employer] [facility] 12-21-2023 13:57-0400 Systolic blood pressure 141 mm[Hg] Marisela Cuevas [employer] Work Phone: [employer] 12-14-2023 14:14-0400 Body height 180.3 cm Suzette Romp PA Work Phone: [facility] 12-14-2023 14:14-0400 Body mass index (BMI) [Ratio] 29.15 kg/m2 Suzette Romp PA Work Phone: [facility] 12-14-2023 14:14-0400 Body weight 94.8 kg Suzette Romp PA Work Phone: [facility] 12-14-2023 14:14-0400 Diastolic blood pressure 87 mm[Hg] Suzette Romp PA Work Phone: [facility] 12-14-2023 14:14-0400 Heart rate 86 /min Suzette Romp PA Work Phone: [facility] 12-14-2023 14:14-0400 Respiratory rate 18 /min Suzette Romp PA Work Phone: [facility] 12-14-2023 14:14-0400 Systolic blood pressure 142 mm[Hg] Suzette Romp PA Work Phone: [facility] 12-09-2023 11:55-0400 Body temperature 97.5 [degF] Amy Jack MD Work Phone: [facility] 12-09-2023 11:55-0400 Diastolic blood pressure 70 mm[Hg] Amy Jack MD Work Phone: [facility] 12-09-2023 11:55-0400 Heart rate 75 /min Amy Jack MD Work Phone: [facility] 12-09-2023 11:55-0400 SaO2% (BldA) [Mass fraction] 99 % Amy Jack MD Work Phone: [facility] 12-09-2023 11:55-0400 Systolic blood pressure 125 mm[Hg] Amy Jack MD Work Phone: [facility] 12-09-2023 09:14-0400 Respiratory rate 18 /min Amy Jack MD Work Phone: [facility] 12-05-2023 05:53-0400 Body mass index (BMI) [Ratio] 30.29 kg/m2 Amy Jack MD Work Phone: [facility] 12-05-2023 05:53-0400 Body weight 98.5 kg Amy Jack MD Work Phone: [facility] 12-03-2023 00:06-0400 Body height 180.3 cm Amy Jack MD Work Phone: [facility] 12-02-2023 10:21-0400 Body height 180.3 cm Jhon Rosado MD Work Phone: [facility] 12-02-2023 10:21-0400 Body mass index (BMI) [Ratio] 29.29 kg/m2 Jhon Rosado MD Work Phone: [facility] 12-02-2023 10:21-0400 Body temperature 97.39 [degF] Jhon Rosado MD Work Phone: [facility] 12-02-2023 10:21-0400 Body weight 95.2 kg Jhon Rosado MD Work Phone: [facility] 12-02-2023 10:21-0400 Diastolic blood pressure 88 mm[Hg] Jhon Rosado MD Work Phone: [facility] 12-02-2023 10:21-0400 Heart rate 84 /min Jhon Rosado MD Work Phone: [facility] 12-02-2023 10:21-0400 Respiratory rate 14 /min Jhon Rosado MD Work Phone: [facility] 12-02-2023 10:21-0400 Systolic blood pressure 142 mm[Hg] Jhon Rosado MD Work Phone: [facility] 11-26-2023 11:54-0400 Diastolic blood pressure 82 mm[Hg] Jhon Rosado MD Work Phone: [facility] 11-26-2023 11:54-0400 Heart rate 93 /min Jhon Rosado MD Work Phone: [facility] 11-26-2023 11:54-0400 Respiratory rate 14 /min Jhon Rosado MD Work Phone: [facility] 11-26-2023 11:54-0400 Systolic blood pressure 141 mm[Hg] Jhon Rosado MD Work Phone: [facility] 10-01-2023 13:03-0400 Body height 180.34 cm DO Randy HallPrevacusng Work Phone: [facility] 10-01-2023 13:03-0400 Body mass index (BMI) [Ratio] 31.6 kg/m2 DO Randy getbetter!long Work Phone: [facility] 10-01-2023 13:03-0400 Body weight 102.96 kg DO Randy Furlong Work Phone: [facility] 10-01-2023 13:03-0400 Diastolic blood pressure 62 mm[Hg] DO Randy Furlong Work Phone: [facility] 10-01-2023 13:03-0400 Heart rate 80 /min DO Randy Furlong Work Phone: [facility] 10-01-2023 13:03-0400 Respiratory rate 18 /min DO Randy Furlong Work Phone: [facility] 10-01-2023 13:03-0400 SaO2% (BldA) [Mass fraction] 100 % DO Randy Furlong Work Phone: [facility] 10-01-2023 13:03-0400 Systolic blood pressure 113 mm[Hg] DO Randy Furlong Work Phone: [facility] 04-28-2023 08:07-0500 Body height 180.3 cm Christy He MD Work Phone: [facility] 04-28-2023 08:07-0500 Body mass index (BMI) [Ratio] 30.42 kg/m2 Christy He MD Work Phone: [facility] 04-28-2023 08:07-0500 Body weight 98.88 kg Christy He MD Work Phone: [facility] 04-28-2023 08:07-0500 Diastolic blood pressure 80 mm[Hg] Christy He MD Work Phone: [facility] 04-28-2023 08:07-0500 Heart rate 74 /min Christy He MD Work Phone: [facility] 04-28-2023 08:07-0500 Respiratory rate 16 /min Christy He MD Work Phone: [facility] 04-28-2023 08:07-0500 Systolic blood pressure 120 mm[Hg] Christy He MD Work Phone: [facility] 04-10-2023 15:17-0500 Blood Pressure Location Sandrita WILLETT [facility] [place] 04-10-2023 15:17-0500 Diastolic blood pressure 80 mm[Hg] Sandrita WILLETT [facility] [place] 04-10-2023 15:17-0500 Heart rate 72 /min Sandrita WILLETT [facility] [place] 04-10-2023 15:17-0500 Respiratory rate 16 /min Sandrita WILLETT [facility] [place] 04-10-2023 15:17-0500 Systolic blood pressure 116 mm[Hg] Sandrita WILLETT [facility] 04-02-2023 11:41-0500 Body mass index (BMI) [Ratio] 30.68 kg/m2 Evan Jay DO Work Phone: [facility] 04-02-2023 11:41-0500 Body weight 99.79 kg Evan Jay DO Work Phone: [facility] 04-02-2023 11:41-0500 Diastolic blood pressure 72 mm[Hg] Evan Jay DO Work Phone: [facility] 04-02-2023 11:41-0500 Systolic blood pressure 124 mm[Hg] Evan Jay DO Work Phone: [facility] 09-29-2022 14:29-0400 Body height 180.34 cm Randy Jaramillo Furlong Work Phone: [facility] DO Work Phone: 09-29-2022 14:29-0400 Body mass index (BMI) [Ratio] 31.52 kg/m2 Randy Jaramillo Furlong Work Phone: [facility] 250 DO Work Phone: 09-29-2022 14:29-0400 Body surface area Derived from formula 2.22 m2 Randy Halllong Work Phone: [facility] 250 DO Work Phone: 09-29-2022 14:29-0400 Body weight 102.51 kg Randy Jaramillo Furlong Work Phone: [facility] 250 DO Work Phone: 09-29-2022 14:29-0400 Diastolic blood pressure 88 mm[Hg] Randy Halllong Work Phone: [facility] [employer] 250 DO Work Phone: 09-29-2022 14:29-0400 Heart rate 76 /min Randy Halllong Work Phone: [facility] DO Work Phone: 09-29-2022 14:29-0400 Systolic blood pressure 138 mm[Hg] Randy Halllong Work Phone: [facility] DO Work Phone: 09-12-2022 14:56-0400 Body height 180.34 cm Randy Halllong Work Phone: [facility] DO Work Phone: 09-12-2022 14:56-0400 Body mass index (BMI) [Ratio] 30.96 kg/m2 Randy G Furlong Work Phone: [facility] 250 DO Work Phone: 09-12-2022 14:56-0400 Body surface area Derived from formula 2.2 m2 Randy G Furlong Work Phone: [facility] DO Work Phone: 09-12-2022 14:56-0400 Body weight 100.7 kg Randy G Furlong Work Phone: [facility] DO Work Phone: 09-12-2022 14:56-0400 Diastolic blood pressure 88 mm[Hg] Randy G Furlong Work Phone: [facility] DO Work Phone: 09-12-2022 14:56-0400 Heart rate 78 /min Randy G Furlong Work Phone: [facility] DO Work Phone: 09-12-2022 14:56-0400 Systolic blood pressure 132 mm[Hg] Randy G Furlong Work Phone: [facility] DO Work Phone: 08-22-2022 09:47-0400 Diastolic blood pressure 100 mm[Hg] Randy G Furlong Work Phone: [facility] DO Work Phone: 08-22-2022 09:47-0400 Systolic blood pressure 142 mm[Hg] Randy G Furlong Work Phone: [facility] DO Work Phone: 08-22-2022 09:46-0400 Body height 180.34 cm Randy G Furlong Work Phone: [facility] DO Work Phone: 08-22-2022 09:46-0400 Body mass index (BMI) [Ratio] 30.68 kg/m2 Randy G Furlong Work Phone: [facility] DO Work Phone: 08-22-2022 09:46-0400 Body surface area Derived from formula 2.2 m2 Randy G Furlong Work Phone: [facility] DO Work Phone: 08-22-2022 09:46-0400 Body weight 99.79 kg Randy G Furlong Work Phone: [facility] DO Work Phone: 08-22-2022 09:46-0400 Diastolic blood pressure 102 mm[Hg] Randy G Furlong Work Phone: [facility] DO Work Phone: 08-22-2022 09:46-0400 Heart rate 74 /min Randy G Furlong Work Phone: [facility] DO Work Phone: 08-22-2022 09:46-0400 Systolic blood pressure 148 mm[Hg] Randy G Furlong Work Phone: [facility] DO Work Phone: 07-21-2022 08:15-0400 Diastolic blood pressure 88 mm[Hg] Randy G Furlong Work Phone: [facility] DO Work Phone: 07-21-2022 08:15-0400 Systolic blood pressure 122 mm[Hg] Randy G Furlong Work Phone: [facility] DO Work Phone: 07-21-2022 08:14-0400 Body height 180.34 cm Randy G Furlong Work Phone: [facility] DO Work Phone: 07-21-2022 08:14-0400 Body mass index (BMI) [Ratio] 30.82 kg/m2 Randy G Furlong Work Phone: [facility] DO Work Phone: 07-21-2022 08:14-0400 Body surface area Derived from formula 2.2 m2 Randy Halllong Work Phone: [facility] DO Work Phone: 07-21-2022 08:14-0400 Body weight 100.25 kg Randy Cantung Work Phone: [facility] DO Work Phone: 07-21-2022 08:14-0400 Diastolic blood pressure 86 mm[Hg] Randy Cantung Work Phone: [facility] DO Work Phone: 07-21-2022 08:14-0400 Heart rate 59 /min Randy Cantung Work Phone: [facility] DO Work Phone: 07-21-2022 08:14-0400 Systolic blood pressure 132 mm[Hg] Randy Cantung Work Phone: [facility] DO Work Phone: 07-14-2022 14:02-0400 Body temperature 99.32 [degF] Reid Coatspsey [facility] 07-14-2022 14:02-0400 Diastolic blood pressure 86 mm[Hg] Reid Bauer [facility] 07-14-2022 14:02-0400 Heart rate 76 /min Reid Juancarlos [facility] 07-14-2022 14:02-0400 SaO2% (BldA) [Mass fraction] 98 % Reid Howardey [facility] 07-14-2022 14:02-0400 Systolic blood pressure 120 mm[Hg] Reid Bauer [facility] 11-11-2021 19:25-0400 Body height 180.34 cm Jesusita Gee Other [email or web address] Other 11-11-2021 19:25-0400 Body mass index (BMI) [Ratio] 28.59 kg/m2 Jesusita Gee Other [email or web address] Other 11-11-2021 19:25-0400 Body temperature 98.1 [degF] Jesusita Gee Other [email or web address] Other 11-11-2021 19:25-0400 Body weight 92.99 kg Jesusita Gee Other [email or web address] Other 11-11-2021 19:25-0400 Respiratory rate 18 /min Jesusita Gee Other [email or web address] Other 11-11-2021 19:25-0400 SaO2% (BldA) [Mass fraction] 96 % Jesusita Gee Other [email or web address] Other Encounters Encounter Date Encounter Type Care Provider Facility Start: 04-07-2024 ambulatory Ulisses Fonseca ty:[id number] Start: 03-30-2024 End: 03-30-2024 Postop follow up visit related to original px Marisela Cuevas APRN-YOGHURT MAKER Work Phone: [facility] Comment on above: Encounter for postop erative care (Primary Dx); S/P breast reconstruction, bilateral; Mycobacterium abscessus infection; Breast wound, left, sequela Start: 03-30-2024 End: 03-30-2024 ambulatory MARISELA CUEVAS [facility] Start: 03-21-2024 End: 03-21-2024 Evaluation and management of inpatient RENO KENYON [facility] Start: 03-21-2024 End: 03-21-2024 Evaluation and management of inpatient JHON ROSADO [facility] Start: 03-18-2024 End: 03-18-2024 Evaluation and management of inpatient RICHIE HANNA [facility] Start: 03-18-2024 End: 03-18-[address] [facility] Phone Call Provider 4 Nuha [facility] On [facility] Start: 03-16-2024 End: 03-16-2024 ambulatory JOSSY MOODY [facility] Start: 03-15-2024 End: 03-15-2024 Telephone encounter [facility] Start: 03-14-2024 End: 03-14-2024 ambulatory Randy Furlong DO Work Phone: [facility] Work Phone: Start: 03-14-2024 End: 03-14-2024 Patient encounter procedure Randy Furlong DO Work Phone: [facility] Work Phone: Start: 03-10-2024 End: 03-10-2024 Bamboo flowsheet Evan Jay DO Work Phone: [facility] Start: 03-10-2024 End: 03-10-2024 Bamboo flowsheet Evan Jay DO Work Phone: [facility] Start: 03-10-2024 End: 03-10-2024 ambulatory EVAN JAY Not Available Start: 03-10-2024 End: 03-10-2024 Office outpatient visit 15 minutes Evan Jay DO Work Phone: [facility] Comment on above: Pre-op examination; H/O malignant neoplasm of breast Start: 03-10-2024 End: 03-10-2024 Preprocedural examination done Evan Jay DO Work Phone: [facility] Start: 03-10-2024 End: 03-10-2024 ambulatory [facility] Start: 03-03-2024 End: 03-03-2024 [facility] Start: 03-02-2024 End: 03-02-2024 Telephone encounter Arlet Bal [facility] garcia Comment on above: critical lab Start: 02-29-2024 End: 03-17-2024 Telephone encounter Joya Gray CMA [facility] Start: 02-26-2024 End: 02-26-2024 Evaluation and management of inpatient [facility] Start: 02-26-2024 End: 02-26-2024 Evaluation and management of inpatient [facility] Start: 02-25-2024 End: 02-25-2024 [facility] Start: 02-25-2024 End: 02-25-2024 Office outpatient visit 15 minutes Jhon Rosado MD Work Phone: [facility] Comment on above: Breast wound, left, sequela (Primary Dx); S/P breast reconstruction, bilateral Start: 02-23-2024 End: 02-25-2024 Telephone encounter Graciela Borges CMA [facility] Comment on above: Post-op Problem Start: 02-19-2024 ambulatory Sandrita WILLETT Facility:[facility] Start: 02-17-2024 End: 02-17-2024 ambulatory GENERIC RESEARCH [facility] Start: 02-16-2024 End: 02-16-2024 ambulatory HERMAN [facility] Start: 02-15-2024 End: 02-15-2024 Office outpatient visit 15 minutes Evan Jay DO Work Phone: [facility] Comment on above: Encounter to discuss procedure Start: 02-15-2024 End: 02-15-2024 ambulatory EVAN JAY Not Available Start: 02-15-2024 End: 02-15-2024 Bamboo flowsheet Evan Jay DO Work Phone: [facility] Start: 02-15-2024 End: 02-15-2024 Bamboo flowsheet Evan Jay DO Work Phone: [facility] Start: 02-11-2024 End: 02-11-2024 Patient encounter procedure Randy Furlong DO Work Phone: [facility] Work Phone: Start: 02-10-2024 End: 02-10-2024 Telephone encounter Yves Coffey MD Work Phone: [facility] Start: 02-10-2024 ambulatory Aarti Jayy Facility :[facility] Start: 02-10-2024 Registered Recurring Randy Fu rlong DO [facility] Work Phone: Start: 02-08-2024 Non-patient / Non-visit Randy Furlong DO Work Phone: [facility] Work Phone: Start: 02-01-2024 End: 02-01-2024 ambulatory YVES COFFEY Not Available Start: 02-01-2024 End: 02-01-2024 Bamboo flowsекатерина Coffey MD Work Phone: [facility] Start: 02-01-2024 End: 02-01-2024 Jossue Coffey MD Work Phone: [facility] Start: 02-01-2024 Non-patient / Non-visit Randy Furlong DO Work Phone: [facility] Work Phone: Start: 01-27-2024 Non-patient / Non-visit Randy Furlong DO Work Phone: [facility] Work Phone: Start: 01-27-2024 End: 01-27-2024 Jossue Coffey MD Work Phone: [facility] Start: 01-27-2024 End: 01-27-2024 Jossue Coffey MD Work Phone: [facility] Start: 01-27-2024 End: 01-27-2024 ambulatory YVES COFFEY Not Available Start: 01-26-2024 End: 01-27-2024 Patient encounter procedure Yves Coffey MD Work Phone: [facility] Comment on above: Anaphylaxis, subsequ ent encounter (Primary Dx) Start: 01-25-2024 End: 01-25-2024 Jossue Coffey MD Work Phone: [facility] Start: 01-25-2024 End: 01-25-2024 Bamporsche Coffey MD Work Phone: [facility] Start: 01-25-2024 End: 01-25-2024 Office outpatient new 60 minutes Yves Coffey MD Work Phone: [facility] Comment on above: Adverse effect of do xycycline, initial encounter (Primary Dx) Start: 01-25-2024 End: 01-25-2024 ambulatory YVES COFFEY Not Available Start: 01-19-2024 Non-patient / Non-visit Randy Furlong DO Work Phone: [facility] Work Phone: Start: 01-15-2024 End: 01-15-2024 ambulatory GENERIC RESEARCH [facility] Start: 01-15-2024 End: 01-15-2024 ambulatory [facility] Start: 01-14-2024 Non-patient / Non-visit Randy Furlong DO Work Phone: [facility] Work Phone: Start: 01-13-2024 Non-patient / Non-visit Randy Furlong DO Work Phone: [facility] Work Phone: Start: 12-30-2023 End: 12-30-2023 Bamboo flowsheet Georgiana Justice DO Work Phone: [facility] Start: 12-30-2023 End: 12-30-2023 Bamboo [...] (CMS/HCC) Start: 12-30-2023 End: 12-30-2023 ambulatory SCOTT [facility] Start: 12-29-2023 Non-patient / Non-visit Randy Furlong DO Work Phone: [facility] Work Phone: Start: 12-29-2023 Registered Recurring DO Randy Furlong Work Phone: [facility] Work Phone: Start: 12-29-2023 End: 12-29-2023 ambulatory DO Randy Furlong Work Phone: [facility] Work Phone: Start: 12-29-2023 End: 12-29-2023 Patient encounter procedure DO Randy Furlong Work Phone: [facility] Work Phone: Start: 12-29-2023 End: 12-29-2023 ambulatory [place] Yumi [facility] Start: 12-29-2023 End: 12-29-2023 Postop follow up visit related to original px Shereen A Selin CONTE Work Phone: [facility] Comment on above: Infection of deep in cisional surgical site after procedure, subsequent encounter (Primary Dx); Malignant neoplasm of lower-inner quadrant of right breast of female, estrogen receptor positive (CMS-HCC) Start: 12-28-2023 End: 12-28-2023 Emergency department patient visit Rusty Horton [facility] Start: 12-21-2023 End: 12-21-2023 [facility] Start: 12-21-2023 End: 12-21-2023 Postop follow up visit related to original px Marisela Cuevas 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 DRIVER-YOGHURT MAKER Work Phone: [facility] Comment on above: Encounter for postop erative care (Primary Dx); Acquired absence of breast, bilateral; S/P breast reconstruction, bilateral Start: 12-16-2023 End: 12-16-2023 Telephone encounter Deborah SUN [facility] Start: 12-14-2023 End: 12-14-2023 Postop follow up visit related to original px Marisela Cuevas LINE DRIVER-YOGHURT MAKER [facility] Comment on above: Encounter for postop erative care (Primary Dx); Acquired absence of breast, bilateral; S/P breast reconstruction, bilateral; Infection of breast implant, subsequent encounter Malignant neoplasm o f lower-inner quadrant of right breast of female, estrogen receptor positive (CMS-HCC) (Primary Dx) Start: 12-14-2023 End: 12-14-2023 [facility] Start: 12-11-2023 End: 12-14-2023 Telephone encounter Mela Berrios [facility] Comment on above: Transition Of Care Start: 12-11-2023 End: 12-11-2023 ambulatory SANDRITA AGOSTO [facility] Start: 12-09-2023 End: 12-09-2023 Telephone encounter Nabila Mora CMA [facility] Start: 12-08-2023 End: 12-08-2023 Orders Only Gino Munguia LINE DRIVER-YOGHURT MAKER [facility] Comment on above: Acid fast bacillus ( Primary Dx); 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 Start: 12-05-2023 End: 12-09-2023 Evaluation and management of inpatient LILIANE VALLE [facility] Start: 12-04-2023 End: 12-09-2023 Evaluation and management of inpatient EPIFANIO HENRY [facility] Start: 12-03-2023 End: 12-03-2023 Orders Only Gino Munguia LINE DRIVER-YOGHURT MAKER Work Phone: [facility] Comment on above: Acid fast bacillus ( Primary Dx) Start: 12-02-2023 End: 12-09-2023 Evaluation and management of inpatient Nilsonwin Edmonds Odilia GALLEGOS Work Phone: [facility] Comment on above: MIRNA (acute kidney in jury) ([facility]) (Primary Dx); Infection of deep incisional surgical site after procedure, initial encounter; 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; Infection of deep incisional surgical site after procedure, subsequent encounter Start: 12-02-2023 End: 12-02-2023 Documentation procedure Shanice Shook LINE DRIVER-YOGHURT MAKER Work Phone: [facility] Start: 12-02-2023 End: 12-02-2023 Telephone encounter Elisa Vallejo RN [facility] Comment on above: Transition Of Care Fever Start: 12-02-2023 End: 12-02-2023 ambulatory [facility] Start: 12-02-2023 End: 12-02-2023 Postop follow up visit related to original monalisa Rosado MD Work Phone: [facility] Comment on above: Encounter for postop erative care (Primary Dx); Acquired absence of breast, bilateral; S/P breast reconstruction, bilateral; Infection of breast implant, subsequent encounter Start: 12-01-2023 End: 12-01-2023 ambulatory DO [facility] Work Phone: [facility] Work Phone: Start: 12-01-2023 End: 12-01-2023 Patient encounter procedure DO [facility] Work Phone: [facility] Work Phone: Start: 11-30-2023 End: 11-30-2023 ambulatory [facility] Start: 11-26-2023 End: 11-30-2023 [facility] JHON CHEEMA [facility] Start: 11-26-2023 End: 11-26-2023 Postop follow up visit related to original monalisa Rosado MD Work Phone: [facility] Comment on above: Cellulitis of left b reast (Primary Dx); S/P breast reconstruction, bilateral Start: 11-26-2023 End: 11-26-2023 [facility] Start: 11-25-2023 End: 11-25-2023 ambulatory [facility] Start: 11-25-2023 End: 11-25-2023 [facility] Start: 11-18-2023 End: 11-18-2023 [facility] Start: 11-11-2023 End: 11-11-2023 [facility] Start: 11-04-2023 End: 11-04-2023 [facility] Start: 10-30-2023 End: 10-30-2023 Evaluation and management of inpatient HARIS MALAS [facility] Start: 10-28-2023 End: 10-30-2023 Evaluation and management of inpatient CHRISTY A HE [facility] Start: 10-28-2023 End: 10-29-2023 ambulatory CHRISTY A HE [facility] Start: 10-28-2023 End: 10-30-2023 Evaluation and management of inpatient CHRISTY A HE [facility] Start: 10-27-2023 End: 10-27-2023 ambulatory [facility] Start: 10-16-2023 End: 10-16-2023 ambulatory BRE SANCHEZ [facility] Start: 10-16-2023 End: 10-16-2023 ambulatory CHRISTY A HE [facility] Start: 10-01-2023 End: 10-01-2023 ambulatory DO Randy Furlong Work Phone: [facility] Work Phone: Start: 10-01-2023 End: 10-01-2023 Patient encounter procedure DO Randy Furlong Work Phone: [facility] Work Phone: Start: 10-01-2023 Registered Recurring DO Randy Furlong Work Phone: [facility] Work Phone: Start: 09-04-2023 End: 09-04-2023 ambulatory CHRISTY A HE [facility] Start: 08-31-2023 End: 08-31-2023 ambulatory [facility] Start: 08-20-2023 End: 08-20-2023 ambulatory [facility] Start: 07-30-2023 End: 07-30-2023 ambulatory CHRISTY A HE [facility] Start: 06-04-2023 End: 06-04-2023 ambulatory Sandrita IWLLETT Facility:[facility] Start: 06-04-2023 End: 06-04-2023 Patient encounter procedure Sandrita WILLETT [facility] [place] Start: 06-01-2023 End: 06-01-2023 ambulatory EVAN THOMPSON Not Available Start: 05-26-2023 Patient encounter procedure Georgiana Justice DO Work Phone: [facility] Start: 05-26-2023 ambulatory Sandrita WILLETT Facility:[facility] [place] Start: 05-21-[address] [facility] Yue Tellez LINE DRIVER-[employer]T MAKER Work Phone: [facility] Start: 05-21-2023 ambulatory Yue huggins LINE DRIVER[employer]T MAKER Work Phone: [facility] Start: 05-14-2023 Telephone encounter Niurka Stockton RN [facility] [place] [facility] Start: 05-13-2023 End: 05-13-2023 ambulatory Sandrita RODRIGUEZL Facility: [facility] Start: 05-12-2023 Telephone encounter Ike Irvin RN [facility] [place] [facility] Start: 05-08-2023 Documentation procedure Niurka dorman RN [facility] [place] [facility] Start: 05-08-2023 End: 05-08-2023 ambulatory JOHN MILLER [facility] Start: 05-08-2023 End: 05-08-2023 ambulatory CHRISTY A HE [facility] Start: 05-08-2023 End: 05-08-2023 ambulatory CHRISTY A HE [facility] Start: 04-28-2023 End: 04-28-2023 ambulatory CHRISTY A HE [facility] Start: 04-28-2023 End: 04-28-2023 Office outpatient new 60 minutes Christy He MD Work Phone: [facility] Comment on above: Malignant neoplasm o f lower-inner quadrant of right breast of female, estrogen receptor positive (CMS-HCC) (Primary Dx); Mass of lower inner quadrant of right breast Start: 04-24-2023 End: 04-24-2023 [facility] Start: 04-14-2023 End: 04-14-2023 ambulatory [facility] Start: 04-10-2023 End: 04-10-2023 ambulatory Sandrita WILLETT Facility: [facility] Start: 04-10-2023 End: 04-10-2023 Patient encounter procedure Sandrita WILLETT General Surgery [facility]ac[facility] Start: 04-10-2023 End: 04-10-2023 ambulatory CHRISTY Eason HE [facility] Start: 04-10-2023 ambulatory RICHIE Thomas JACQUES [facility] Ambulatory [facility] Start: 04-06-2023 End: 04-06-2023 ambulatory Chantal Bear Facility:[facility] Start: 04-06-2023 End: 04-06-2023 Patient encounter procedure Chantal Bear [facility] Start: 04-02-2023 End: 04-02-2023 ambulatory EVAN JAY Not Available Start: 04-02-2023 End: 04-02-2023 Office outpatient visit 15 minutes Evan Jay DO Work Phone: [facility] Comment on above: Mammogram abnormal; Invasive ductal carcinoma of breast, right (CMS/HCC) Start: 03-26-2023 End: 03-26-2023 ambulatory DO Randy Calle Work Phone: [facility] Work Phone: Start: 03-26-2023 End: 03-26-2023 Departed Referred DO Randy Cantung Work Phone: [facility] Start: 03-20-2023 End: 03-20-2023 ambulatory BRITTANI SANTOS Facility:[facility] Start: 03-20-2023 End: 03-20-2023 Patient encounter procedure BRITTANI SANTOS [facility] Start: 10-15-2022 Chart Update Randy Cantu ng Work Phone: [facility] 250 DO Work Phone: Start: 10-14-2022 ambulatory BRITTANI SANTOS Facili ty:[id number] Start: 09-29-2022 Patient encounter procedure Randy Hallalannaterry Work Phone: [facility] 250 DO Work Phone: Start: 09-29-2022 ambulatory Ms. Brittani Santos Facility: Start: 09-12-[address] Shanon Tyler II Facility: Start: 09-12-2022 Office outpatient vi sit 5 minutes Randy Cantung Work Phone: [facility] 250 DO Work Phone: Start: 08-22-[address] Shanon Tyler II Facility: Start: 08-22-2022 Office outpatient vi sit 5 minutes Randy Cantung Work Phone: [facility] 250 DO Work Phone: Start: 08-18-2022 Chart Update Randy Cantu ng Work Phone: [facility] 250 DO Work Phone: Start: 08-15-2022 End: 08-15-2022 Patient encounter procedure Shanon Tyler [facility] Start: 07-21-[address] Shanon Tyler II Facility: Start: 07-14-2022 End: 07-14-2022 Patient encounter procedure Reid Bauer [facility] Start: 12-27-2021 End: 12-27-[address] DAYANA BASHIR Facility:[facility] Start: 12-13-2021 End: 12-14-[address] KAYE MANUEL Facility:[facility] Start: 11-22-2021 End: 11-22-[address] [facility] Facility:[facility] Start: 11-11-2021 End: 11-11-2021 ambulatory Jesusita Gee Other [employer] Other Start: 11-11-2021 Office outpatient vi sit 15 minutes Jesusita Gee [facility] Start: 08-26-2021 End: 08-28-[address] [facility] Facility:[facility] Start: 08-22-2021 End: 08-22-[address] [facility] Facility:[facility] Start: 08-13-2021 End: 08-13-[address] [facility] Facility:[facility] Start: 01-21-2021 End: 01-21-[address] [facility] Facility:[facility] Start: 01-04-2021 End: 01-05-[address] [facility] Facility: [facility] Procedures Date Procedure Procedure Detail Performing Clinician Start: 03-30-2024 Adult depression screening assessment Marisela Cuevas [employer] DR[employer]KER Work Phone: Start: 12-09-2023 Comprehensive metabo lic panel Chris Hollis PA-C Work Phone: Start: 12-08-2023 Potassium serum plasma/whole blood Amy Jack MD Work Phone: Start: 12-08-2023 Assay of magnesium Amy dennison MD Work Phone: Start: 12-08-2023 Comprehensive metabo lic panel Chris Valdez Bunny PA-C Work Phone: Start: 12-07-2023 Comprehensive metabo lic panel Chris Valdez Bunny PA-C Work Phone: Start: 12-06-2023 Assay of magnesium Radha Valle [employer] DRIVER[employer]T MAKER Work Phone: Start: 12-06-2023 Urnls dip stick/tabl et rgnt auto w/o microscopy Liliane Valle LINE DRIVER[employer]T MAKER Work Phone: Start: 12-06-2023 Comprehensive metabo lic panel Chris Valdez Bunny PA-C Work Phone: Start: 12-05-2023 Assay of magnesium Oliv irwin Valle LINE DRIVER[employer]OGHURT MAKER Work Phone: Start: 12-05-2023 Radiologic exam ches t single view Liliane Valle LINE DRIVER[employer]T MAKER Work Phone: Start: 12-05-2023 RESP PATHOGENS PANEL/SARS-COV-2 Liliane Valle LINE DRIVER[employer]T MAKER Work Phone: Start: 12-05-2023 End: 12-05-2023 Culture bacterial blood aerobic w/id isolates Carlene Noguera MD Work Phone: Start: 12-05-2023 Comprehensive metabo lic panel Chris Valdez Bunny DUFFY-C Work Phone: Start: 12-04-2023 Cyanocobalamin vitam in b-12 Elayne Chow MD Work Phone: Start: 12-04-2023 Us retroperitoneal r eal time w/image complete Epifanio Henry MD Work Phone: Start: 12-04-2023 Comprehensive metabo lic panel Chris Courtney Bunny DUFFY-C Work Phone: Start: 12-03-2023 Assay of urine sodium R shena Henry MD Work Phone: Start: 12-03-2023 Urnls dip stick/tabl et rgnt auto w/o microscopy Epifanio Henry MD Work Phone: Start: 12-03-2023 Antinuclear antibodi es justin Epifanio Henry MD Work Phone: Start: 12-03-2023 Creatine kinase total R shena Henry MD Work Phone: Start: 12-03-2023 Assay of magnesium Oliv ia Courtney Valle LINE DRIVER[employer]T MAKER Work Phone: Start: 12-03-2023 Ecg routine ecg w/le ast 12 lds trcg only w/o i&r Carlene Noguera MD Work Phone: Start: 12-03-2023 Comprehensive metabo lic panel Chris DUFFY-C Work Phone: Start: 12-03-2023 DIFFERENTIAL ADD ON USE ONLY Chris DUFFY-C Work Phone: Start: 12-03-2023 Drug screen quantita tive vancomycin Chris Hollis PA-C Work Phone: Start: 12-02-2023 End: 12-02-2023 Culture bacterial quanttative colony count urine Kayleigh Adames DO Work Phone: Start: 12-02-2023 Urnls dip stick/tabl et rgnt auto w/o microscopy Kayleigh Adames DO Work Phone: Start: 12-02-2023 End: 12-02-2023 Comprehensive metabolic panel Kayleigh Adames DO Work Phone: Start: 10-16-2023 Mammography Georgiana bangura DO Work Phone: Start: 07-30-2023 Follow-up visit Follow-up CHRISTY HE Start: 06-01-2023 Microscopic observat ion [Identifier] in Cervix by Cyto stain Evan Thompson DO Work Phone: Start: 06-01-2023 Cytp cerv/vag auto t hin layer prep mnl screen Evan Thompson DO Work Phone: Start: 03-07-2022 Adult depression screening assessment Niurka Stockton RN Start: 12-27-2021 Mammography Evandiandra adrian DO Work Phone: Start: 12-27-2021 Microscopic observat ion [Identifier] in Cervix by Cyto stain Georgiana Justice DO Work Phone: Start: 03-02-2005 Hysterectomy Reid mcfarland Abdominal hysterectomy Mofoster Clarke Biopsy of breast Sandrita RODRIGUEZ William Chondrectomy of semi lunar cartilage of knee Mojonisharad olgai Core needle biopsy o f breast using ultrasound guidance Mojonisharad Bear Excision of breast Rusty Delilah mcgowan Excisional biopsy of breast Randy Calle Work Phone: Hysterectomy Randy jaramillo Work Phone: Insertion of implant able venous access port Sandrita RODRIGUEZWilliam Lipoma of back (disorder) Cleve Howardey Repair of anterior cruciate ligament of knee joint Moursharad olgai Tonsillectomy Moursharad Trabou lssi Transurethral cystoscopy Haydee rhaf maria esther NEGATED: Highlighted row has not occurred! Total colonoscopy Randy Calle Work Phone: Plan of Treatment Date Care Activity Detail Author Start: 05-31-2028 Screening for malignant neoplasm of cervix [facility] Start: 07-08-2027 DTaP,Tdap and Td Vaccines (2 - Td or Tdap) DTaP,Tdap and Td Vaccines (2 - Td or Tdap) [facility] Start: 12-27-2026 Screening for malignant neoplasm of cervix [facility] Start: 03-30-2025 Adult BMI Screening Adult [facility]ening [facility] Start: 03-30-2025 Depression Screening Depression Screening [facility] Start: 03-21-2025 Tobacco Screening Tobacco Screening [facility] Start: 03-10-2025 Adult BMI Screening Adult BMI Screening [facility] Start: 03-10-2025 Tobacco Screening Tobacco Screening [facility] Start: 02-25-2025 Adult BMI Screening Adult BMI Screening [facility] Start: 02-25-2025 Tobacco Screening Tobacco Screening [facility] Start: 12-13-2024 Adult BMI Screening Adult BMI Screening [facility] Start: 12-13-2024 Tobacco Screening Tobacco Screening [facility] Start: 12-04-2024 Adult BMI Screening Adult BMI Screening [facility] Start: 12-02-2024 Adult BMI Screening Adult BMI Screening [facility] Start: 12-01-2024 Adult BMI Screening Adult BMI Screening [facility] Start: 12-01-2024 Tobacco Screening Tobacco Screening [facility] Start: 10-15-2024 Screening for malignant neoplasm of breast Mammogram [facility] Start: 06-06-2024 Screening for malignant neoplasm of colon [facility] Start: 06-01-2024 End: 06-01-2024 Patient encounter procedure 06/01/2024 11:00 AM EDT Office Visit [facility] [address] [place] [phone] Evan Thompson DO [address] [place] [address] [facility] Start: 05-05-2024 Adult BMI Screening Adult BMI Screening [facility] Start: 04-28-2024 End: 04-28-2024 Patient encounter procedure 04/28/2024 3:15 PM EST Office Visit [facility] [address] [facility] [address] [facility] [place] [address] Jhon Rosado MD [address] [place] [address] [facility] Start: 04-28-2024 Tobacco Screening Tobacco Screening [facility] Start: 04-15-2024 End: 04-15-2024 Patient encounter procedure 04/15/2024 11:30 AM EST Office Visit [facility] [address] [place] [address] Marisela Cuevas, [facility] [address] [place] [address] [facility] Start: 03-21-2024 End: 03-21-2024 Admission to same day surgery center 03/21/2024 3:30 PM EST - 03/21/2024 5:15 PM EST Surgery [facility] [address] [place] [address] Jhon Rosado MD [address] [place] [address] EXCISION SOFT TISSUE BREAST - EXC REDUNDANT CHEST WALL TISSUE [61048 (CPT )] [facility] Surgery Comment on above: EXCISION SOFT TISSUE BREAST - EXC REDUND ANT CHEST WALL TISSUE [95173 (CPT )] Start: 03-21-2024 End: 03-21-2024 Excision excessive skin & subq tissue other area EXCISION SOFT TISSUE BREAST LT CHEST WOUND 03/21/2024 3:30 PM EST [facility] Start: 03-21-2024 End: 03-21-2024 Removal tiss battery parts assembler w/o insertion prosthesis REMOVAL COMPENSATION INTERN TISSUE BREAST LT CHEST WOUND 03/21/2024 3:30 PM EST [facility] Start: 03-21-2024 Subsequent hospital visit by physician 03/21/2024 3:30 PM EST Hospital Encounter [facility] Surgery [address] [place] [address] Jhon Rosado MD [address] [place] [address] [facility] Start: 03-15-2024 End: 03-15-2024 Patient encounter procedure [facility] Start: 03-04-2024 End: 03-04-2024 Patient encounter procedure 03/04/2024 10:30 AM EST Office Visit [facility] [address] [place] [address] Shreeen Smallwood PA-C [address] [place] [address] [facility] Start: 03-03-2024 End: 03-03-2024 Patient encounter procedure 03/03/2024 12:30 PM EST Office Visit [facility] [address] [place] [address] Jhon Rosado MD [address] [place] [address] [facility] Start: 02-26-2024 End: 02-26-2024 Admission to same day surgery center 02/26/2024 11:30 AM EST - 02/26/2024 1:00 PM EST Surgery [facility] Surgery [address] [place] [address] Jhon Rosado MD [address] [place] [address] INCISION DRAINAGE BREAST (WASHOUT) [facility] Surgery Comment on above: INCISION DRAINAGE BREAST (WASHOUT) Start: 02-26-2024 End: 02-26-2024 CLOSURE WOUND MIDSECTION CLOSURE WOUND MIDSECTION LEFT BREAST WOUND 02/26/2024 11:30 AM EST [facility] Start: 02-26-2024 End: 02-26-2024 INCISION DRAINAGE BREAST INCISION DRAINAGE BREAST LEFT BREAST WOUND 02/26/2024 11:30 AM EST [facility] Start: 02-26-2024 Subsequent hospital visit by physician 02/26/2024 11:30 AM EST Hospital Encounter [facility] Surgery [address] [place] [address] Jhon Rosado MD [address], [facility] [address] [place] [address] [facility] Surgery Start: 02-15-2024 End: 02-15-2024 Patient encounter procedure [facility] Comment on above: Arrived Start: 01-25-2024 End: 01-25-2024 Patient encounter procedure 01/25/2024 10:00 AM EST Office Visit [facility] [address] [facility] [address] [place] [phone] Yves Coffey MD [address] [facility] [address] [place] [address] Arrived [facility] Comment on above: Arrived Start: 12-21-2023 End: 12-21-2023 Patient encounter procedure 12/21/2023 1:30 PM EDT Office Visit [facility] [address] [place] [phone] Marisela Cuevas, LINE DRIVER-YOGHURT MAKER [address] [facility] [place] [address] [facility] Start: 12-15-2023 End: 12-15-2023 Patient encounter procedure 12/15/2023 10:30 AM EDT Office Visit [facility] [address] [place] [address] Marisela Cuevas, [facility] [address] [place] [address] [facility] Start: 12-14-2023 End: 12-14-2023 Patient encounter procedure 12/14/2023 2:00 PM EDT Office Visit [facility] [address] [place] [phone] Suzette Mason PA [address] [place] [phone] [facility] Start: 12-08-2023 End: 12-08-2023 Patient encounter procedure [facility] Start: 12-01-2023 Patient referral [facility] Work Phone: Start: 11-01-2023 COVID-19 Vaccine ( season) COVID-19 Vaccine ( season) [facility] Start: 11-01-2023 COVID-19 Vaccine ( season) COVID-19 Vaccine ( season) [facility] Start: 11-01-2023 [facility] Start: 07-30-2023 End: 07-30-2023 Patient encounter procedure 07/30/2023 3:00 PM EDT Office Visit [facility] [address] [place] [phone] Christy He MD [address] [facility] [facility] [address] [place] [phone] [facility] Start: 06-01-2023 End: 06-01-2023 Patient encounter procedure 06/01/2023 1:30 PM EDT Office Visit [facility] [address] [place] [address] Evan Thompson, DO [address] [place] [address] [facility] Start: 04-08-2023 FUV, Provider: Shanon Tyler, Status: Pen, Time: 2:50 PM FUV, Provider: Shanon Tyler, Status: Pen, Time: 2:50 PM [facility] Work Phone: Start: 03-07-2023 Depression Screening Depression Screening [facility] Start: 12-27-2022 Screening for malignant neoplasm of breast Mammogram [facility] Start: 10-31-2022 COVID-19 Vaccine ( season) COVID-19 Vaccine ( season) [facility] Start: 10-31-2022 Influenza vaccination [facility] Start: 09-29-2022 FUV, Provider: Brittani Avalos, Status: Pen, Time: 2:30 PM FUV, Provider: Brittani Avalos, Status: Pen, Time: 2:30 PM [facility] Work Phone: Start: 09-18-2022 FUV, Provider: Shanon Tyler, Status: Pen, Time: 9:10 AM FUV, Provider: Shanon Tyler, Status: Pen, Time: 9:10 AM [facility] Work Phone: Start: 09-12-2022 WILMAN, Provider: ASHLEIGH MURGUIA TAR POT MAN 1,[id number], Status: Pen, Time: 9:00 AM WILMAN, Provider: ASHLEIGH MURGUIA TAR POT MAN 1,[id number], Status: Pen, Time: 9:00 AM [facility] 250 DO Work Phone: Start: 08-22-2022 WILMAN, Provider: ASHLEIGH MURGUIA TAR POT MAN 1,[id number], Status: Pen, Time: 9:00 AM WILMAN, Provider: ASHLEIGH MURGUIA TAR POT MAN 1,[id number], Status: Pen, Time: 9:00 AM [facility] 250 DO Work Phone: Start: 2000 Screening for malignant neoplasm of cervix [facility] Start: 10-11-1991 Screening for malignant neoplasm of cervix Pap Smear [facility] Start: 1989 Administration of varicella zoster vaccine Zoster (Shingles) Vaccine (1 of 2) [facility] Start: 1988 Adult BMI Follow Up Plan Adult BMI Follow Up Plan [facility] Start: 1970 Screening for malignant neoplasm of colon [facility] Bacteria identified in Blood by Aerobe culture [facility] Work Phone: End: 12-08-2024 CBC W Auto Differential panel - Blood CBC auto differential Lab Routine Infection of deep incisional surgical site after procedure, initial encounter Infection of deep incisional surgical site after procedure, subsequent encounter weekly for 4 Occurrences starting 12/09/2023 until 12/08/2024 [facility] Work Phone: Comment on above: weekly for 4 Occurrences starting 2023 until 12/08/2024 End: 12-08-2024 Comprehensive metabolic 2000 panel - Serum or Plasma Comprehensive metabolic panel Lab Routine Infection of deep incisional surgical site after procedure, initial encounter Infection of deep incisional surgical site after procedure, subsequent encounter weekly for 4 Occurrences starting 12/09/2023 until 12/08/2024 [facility] [employer] Comment on above: weekly for 4 Occurrences starting 2023 until 12/08/2024 Computed tomography for radiotherapy planning [facility] CT with contrast for radiotherapy planning [facility] Patient referral [facility] Work Phone: Immunizations Immunization Date Immunization Notes Care Provider Fa cility 12-06-2020 Covid-19, Mrna, Lnp-s, Pf, 30 Mcg/0.3 Ml Dose, Winston-sucrose Niurka Stockton RN [facility] 12-06-2020 SARS-CoV-2 (COVID-19 ) mRNA BNT-162b2 vax Reid Bauer [facility] Comment on above: Result Comment: 2022: [id number] 12-06-2020 SARS-COV-2 (COVID-19 ) Vaccine, Unspecified Niurka Stockton RN [facility] 11-15-2020 SARS-CoV-2 (COVID-19 ) mRNA BNT-162b2 vax Reid Juancarlos [facility] Comment on above: Result Comment: 2022: [id number] 11-20-2019 influenza virus vaccine, unspecified formulation Reid Juancarlos [facility] 11-14-2019 influenza virus vaccine, unspecified formulation Reid Juancarlos [facility] 11-14-2019 influenza, seasonal, injectable Randy G Furlong Work Phone: [facility] Banksnob DO Work Phone: 12-13-2018 influenza virus vaccine, unspecified formulation Reid Coatspsey [facility] 12-13-2018 influenza, seasonal, injectable Randy G Furlong Work Phone: [facility] 250 DO Work Phone: 12-10-2017 influenza virus vaccine, unspecified formulation Reid Juancarlos [facility] 12-10-2017 influenza, injectable, quadrivalent, contains preservative Randy G Furlong Work Phone: [place] [address] DO Work Phone: 07-07-2017 tetanus toxoid, reduced diphtheria toxoid, and acellular pertussis vaccine, adsorbed eRid Bauer [facility] 01-19-2017 influenza virus vaccine, unspecified formulation Reid Coatspsey [facility] 01-19-2017 influenza, injectable, quadrivalent, contains preservative Randy G Furlong Work Phone: [place] [address] DO Work Phone: 01-07-2016 influenza virus vaccine, unspecified formulation Reid Bauer [facility] 01-07-2016 influenza, injectable, quadrivalent, contains preservative Randy G Furlong Work Phone: [place] [address] DO Work Phone: 12-01-2015 influenza virus vaccine, unspecified formulation Randy G Furlong Work Phone: [place] [address] DO Work Phone: 12-01-2015 influenza, unspecified formulation Reid Bauer [facility] 12-27-2014 influenza virus vaccine, unspecified formulation Reid Coatspsey [facility] 12-27-2014 influenza, injectable, quadrivalent, contains preservative Randy G Furlong Work Phone: [facility] 250 DO Work Phone: 12-06-2014 influenza, seasonal, injectable Niurka Stockton RN [facility] 01-05-2014 influenza virus vaccine, unspecified formulation Reid Coatspsey [facility] 01-05-2014 influenza, injectable, quadrivalent, contains preservative Randy G Furlong Work Phone: [facility] Work Phone: 12-29-2012 influenza virus vaccine, unspecified formulation [facility] 12-29-2012 influenza, seasonal, injectable Randy Jaramillo Furlong Work Phone: [facility] Work Phone: 01-17-2009 novel gyazazpyz-[id number], preservative-free, injectable Randy Jaramillo Furlong Work Phone: [facility] DO Work Phone: NEGATED: Highlighted row has not occurred!04-10-2023 influenza virus vaccine, unspecified formulation Sandrita RODRIGUEZWilliam [facility] [place] Payers Date Payer Category Payer Medicaid HMO [facility] MEDICAID [id number] 2023 Private Health Insurance [id number] [id number] 2023 Self-pay [id number] 2023 Medicaid [id number]. [id number]. [id number] 2023 Private Health Insurance [id number] 2016 Unknown [id number] 1970 Unknown [id number] 2.16.840.1.516144.3.579. 2.718 1970 Unknown [id number] 2.16.840.1.374524.3.579. 2.718 1970 Unknown [id number] 2.16.840.1.009728.3.579. 2.718 1970 Unknown [id number] 2.16.840.1.593384.3.579. 2.718 1970 Unknown [id number] 2.16.840.1.704080.3.579. 2.718 1970 Unknown [id number] 2.16.840.1.892032.3.579. 2.718 1970 Unknown [id number] 2.16.840.1.635347.3.579. 2.718 1970 Unknown [id number] 2.16.840.1.563718.3.579. 2.593 1970 Unknown [id number] 2.16.840.1.093119.3.579. 2.593 1970 Unknown [id number] 2.16.840.1.610856.3.579. 2.356 1970 Unknown [id number] 2.16.840.1.928609.3.579. 2.356 1970 Unknown [id number] 2.16.840.1.216369.3.579. 2.356 1970 Unknown [id number] 2.16.840.1.096756.3.579. 2.356 1970 Unknown [id number] 2.16.840.1.263015.3.579. 2.1068 1970 Unknown [id number] 2.16.840.1.976747.3.579. 2.1285 1970 Unknown [id number] 2.16.840.1.172464.3.579. 2.1285 1970 Unknown [id number] 2.16.840.1.446509.3.579. 2.1285 1970 Unknown [id number] 2.16.840.1.357924.3.579. 2.1285 1970 Unknown [id number] 2.16.840.1.350727.3.579. 2.1285 1970 Unknown [id number] 2.16.840.1.600112.3.579. 2.1285 1970 Unknown [id number] 2.16840.1.066410.3.579. 2.1285 1970 Unknown [id number] 2.16.840.1.211252.3.579. 2. 1970 Unknown [id number] 2.16.840.1.286164.3.579. 2. 1970 Unknown [id number] 2.16.840.1.498924.3.579. 2. 1970 Unknown [id number] 2.16840.1.334509.3.579. 2. 1970 Unknown [id number] 2.16.840.1.172955.3.579. 2. 1970 Unknown [id number] 2.16.840.1.827555.3.579. 2. 1970 Unknown [id number] 2.16.840.1.010109.3.579. 2. 1970 Unknown [id number] 2.16.840.1.625061.3.579. 2. 1970 Unknown [id number] 2.16.840.1.271980.3.579. 2.1244 1970 Unknown [id number] 2.16.840.1.201817.3.579. 2.1258 1970 Unknown [id number] 2.16.840.1.396253.3.579. 2.1258 1970 Unknown [id number] 2.16.840.1.666428.3.579. 2.1258 1970 Unknown [id number] 2.16.840.1.123492.3.579. 2.1258 1970 Unknown [id number] 2.16.840.1.703463.3.579. 2.1258 1970 Unknown [id number] 2.16.840.1.237774.3.579. 2.1258 1970 Unknown [id number] 2.16.840.1.019625.3.579. 2.1258 1970 Unknown [id number] 2.16.840.1.788717.3.579. 2.1258 1970 Unknown [id number] 2.16.840.1.601464.3.579. 2.1285 1970 Unknown [id number] 2.16.840.1.925712.3.579. 2.1285 1970 Unknown [id number] 2.16.840.1.199768.3.579. 2.1285 1970 Unknown [id number] 2.16.840.1.610108.3.579. 2.1285 1970 Unknown [id number] 2.16.840.1.617516.3.579. 2.1285 1970 Unknown [id number] 2.16.840.1.746646.3.579. 2.1285 1970 Unknown [id number] 2.16.840.1.046746.3.579. 2.1285 1970 Unknown [id number] 2.16.840.1.605970.3.579. 2.1285 1970 Unknown [id number] 2.16.840.1.460773.3.579. 2.1285 1970 Unknown [id number] 2.16.840.1.475212.3.579. 2.1285 1970 Unknown [id number] 2.16.840.1.115645.3.579. 2.1285 1970 Unknown [id number] 2.16.840.1.788373.3.579. 2.1285 1970 Unknown [id number] 2.16.840.1.784732.3.579. 2.1285 1970 Unknown [id number] 2.16.840.1.861273.3.579. 2.1285 1970 Unknown [id number] 2.840.1.556054.3.579. 2.1285 1970 Unknown [id number] 2.16.840.1.458516.3.579. 2.1285 1970 Unknown [id number] 2.16.840.1.778815.3.579. 2.1285 1970 Unknown [id number] 2.16.840.1.103696.3.579. 2.1285 1970 Unknown [id number] 2.16.840.1.707339.3.579. 2.1285 1970 Unknown [id number] 2.16.840.1.922133.3.579. 2.1285 1970 Unknown [id number] 2.16.840.1.418182.3.579. 2.1285 1970 Unknown [id number] 2.16.840.1.295148.3.579. 2.1285 1970 Unknown [id number] 2.16.840.1.988106.3.579. 2.1285 1970 Unknown [id number] 2.16.840.1.755002.3.579. 2.1285 1970 Unknown [id number] 2.16.840.1.886155.3.579. 2.1285 1970 Unknown [id number] 2.16.840.1.812643.3.579. 2.1285 1970 Unknown [id number] 2.16.840.1.080887.3.579. 2.1285 1970 Unknown [id number] 2..840.1.581946.3.579. 2.1285 1970 Unknown [id number] 2.840.1.764235.3.579. 2.1285 1970 Unknown [id number] 2.840.1.070534.3.579. 2.1285 1970 Unknown [id number] 2.840.1.454074.3.579. 2.1285 1970 Unknown [id number] 2.840.1.064153.3.579. 2.1285 1970 Unknown [id number] 2.840.1.206363.3.579. 2.1285 1970 Unknown [id number] 2.840.1.198865.3.579. 2.1285 1970 Unknown [id number] 2.840.1.227315.3.579. 2.1285 1970 Unknown [id number] 2.840.1.733462.3.579. 2.1285 1970 Unknown [id number] 2.16840.1.864476.3.579. 2.1285 1970 Unknown [id number] 2.840.1.563922.3.579. 2.1285 1970 Unknown [id number] 2.840.1.971658.3.579. 2.1286 1970 Unknown [id number] 2.16.840.1.982661.3.579. 2.1286 1970 Unknown [id number] 2.16.840.1.384681.3.579. 2.1286 1970 Unknown [id number] 2.16.840.1.815515.3.579. 2.128 1970 Unknown [id number] 2.16.840.1.626640.3.579. 2.1286 1970 Unknown [id number] 2.16840.1.868498.3.579. 2.128 1970 Unknown [id number] 2.16.840.1.329416.3.579. 2.1286 1959 Private Health Insurance [id number] 2..840.1.593303.19 Unknown Unknown [id number] Unknown Insurance No Card [id number] Unknown [id number] 2.16.840.1.715539.3.579. 2.531 Unknown [id number] 2.16.840.1.848706.3.579. 2.531 Social History Date Type Detail Facility Unknown if ever smoked [email or web address] Other Start: 02-27-2022 End: 01-04-2023 Sex Assigned At [facility] Start: 07-14-2022 End: 03-18-2024 Tobacco smoking status Never smoked tobacco (finding) [facility] Tobacco smoking status Never [facility] Start: 02-27-2022 End: 01-04-2023 Social alcohol use Social alcohol use [facility] Start: 1970 Sex Assigned At Female [facility] Start: 04-02-2023 End: 03-10-2024 Alcohol intake Lifetime non-drinker (finding) [facility] Start: 01-04-2023 Alcohol Comment Caffeine intake: 1-2 cups per day [facility] Start: 1970 Sex Assigned At Not on file [facility] Start: 04-28-2023 End: 03-18-2024 Tobacco use and exposure Smokeless tobacco non-user [facility] Start: 04-28-2023 End: 03-22-2024 Alcohol intake Current drinker of alcohol (finding) [facility] Do you belong to any clubs or organizations such as amish groups, unions, fraternal or athletic groups, or school groups? Yes [facility] Are you now , , , , never or living with a partner? [facility] How often to you hav e a drink containing alcohol? 2-3 time sa week [facility] How many standard dr inks containing alcohol do you have on a typical day? 1 or 2 [facility] How often do you hav e 6 or more drinks on 1 occasion? Less than monthly [facility] Do you feel stress - tense, restless, nervous, or anxious, or unable to sleep at night because your mind is troubled all the time - these days [OSQ] To some extent [facility] Start: 02-27-2022 Education 21 [facility] Has the [employer], [employer], or water company threatened to shut off services in your home in past 12Mo No [facility] Start: 10-16-2023 Alcohol Comment Socially [facility] Start: 10-05-2014 End: 03-14-2024 Sex Female (finding) [facility] History of tobacco use Passive smoker [facility] Medical Equipment Procedure Code Equipment Code Equipment Origin al Text Equipment Identifier Dates Superintendent Job Tiss [id number] Brst 480-575cc Txtr Intgr Port Allox2 - [id number] - [id number] Start: 10-28-2023 Superintendent Job Tiss [id number] Brst 480-575cc Txtr Intgr Port Allox2 - [id number] - [id number] Start: 10-28-2023 Functional Status Date Assessment Result Facility 12-28-2023 Functional Status N/A [facility] 04-10-2023 Functional Status N/A [facility] shuk[facility] Palacios 07-14-2022 Functional Status N/A [facility] Clinical Notes 01-18-2021 to 03-30-2024 Marisela Cuevas, ROBER-ESPERANZA - 03/30/2024 4:00 PM ESTPre-Procedure Instructions - Lenore Grover RN - 03/18/2024 1:45 PM ESTTelephone Encounter - Alton Greco - 03/15/2024 4:49 PM EST Note Date & Type Note Facility 03-30-2024 History of Present illness Narrative [facility] [address] Office Jhon Rosado MD, PhD Marisela Cuevas, [facility] King, [facility] Plastic Surgery Progress Note Reason for visit : post-op History of present illness: Ike Flannery is a 53 y.o. 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 Her postoperative course was complicated by an infected seroma of her left breast requiring operative washout and tissue battery parts assembler removal 11/27/23. 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 She then developed a wound of her left breast requiring I&D of her left breast 02/26/24. Intraoperative tissue cultures were sent and again positive for mycobacterium. She again developed a left breast wound requiring I&D on 03/21/24 with positive cultures for mycobacterium. She continues with IV antibiotics per ID. She presents to our office today for wound evaluation and possible drain removal. She states she is doing well. She is having minimal postoperative pain. Her drain outputs have been less than 10 mL a day for 10 days. The patient denies fever, chills, redness or drainage from surgical wound(s). Review of Systems: Denies surgical site concerns. All other symptoms negative except as noted in HPI. Physical Examination: Vitals: 03/30/24 1558 BP: 123/82 Pulse: 82 Body mass index is 27.91 kg/m . GENERAL: no acute distress, well developed, well nourished. LYMPHATIC: no upper extremity lymphedema NEUROLOGIC: alert and oriented to time, place and person. PSYCH: judgement and insight good, mood/affect full range. Focused examination : Left breast incision clean, dry and intact. No erythema, subcutaneous edema, or necrosis is noted. Mild generalized bruising present. No ballotable fluid collections palpated. Nipple-areolar complexes surgically absent. ARTEMIO drain in place, draining serosanguineous fluid. ARTEMIO drain site appears benign. Impression: 1. Encounter for postoperative care 2. S/P breast reconstruction, bilateral 3. Mycobacterium abscessus infection 4. Breast wound, left, sequela Recommendations: Surgical cultures discussed with patient in office today. Continue with IV antibiotics per Infectious Disease. ARTEMIO drain removed in office today. Patient tolerated well. Tubing was intact. Discussed with patient keeping site covered for 2 days, then okay to leave open to air. Discussed that she should continue with a supportive bra. She can cover her left breast incision with an ABD pad. Continue to refrain from any heavy lifting pushing or pulling. Discussed that she can shower and sleep how she feels comfortable at this time. Continue with scheduled follow-up in 2 weeks for wound check. She was advised to call the office any questions or concerns in the interim. Voiced understanding and agreement with plan as discussed. - AMEENA Rand 03/30/24 4:29 PM Please note that portions of this note were generated using voice recognition [employer] dictation software. Although every effort was made to ensure the accuracy of this automated ball mill operator, some errors in ball mill operator may have occurred. AMEENA Kennedy 03/30/24 1629 documented in this encounter [facility] 03-18-2024 Instructions Formatting of th is note might be different from the original. Your surgery/procedure is scheduled at [facility] on 03/21/24 at 3;30 pm Arrival Time 12;30 pm [facility] Address: [address] [place] [address], [address] Park in the Emergency Center Parking lot. Report to the front office associate in the Emergency/Surgery Registration lobby of the hospital. Notify your SURGEON if you develop any illness such as a cold, cough, fever, sore throat, vomiting or are hospitalized between now and your surgery. Please call Pre-Admission Clinic at [phone] if you have any questions prior to surgery. For questions the morning of surgery, call the Pre-op Department at [phone]. Medication Instructions (Do not stop your medications without consulting the prescribing physician). Take the following medications the morning of surgery with a sip of water: metoprolol Diabetic or Weight loss medications: HOLD n/a LAST DOSE n/a Take inhalers as prescribed the morning of surgery. Due to the risk associated with these medications. If these medications are not held per instruction below, your surgery is at an increased risk for cancellation SGLT2 Medications- Hold 3 days prior to surgery: Jardiance, Empagliflozin, Farxiga, Dapagliflozin, Invokana, Canagliflozin, Trijardy, Synjardy GLP-1 Medications (Injection or Pill)- If taken daily hold day of surgery. If taken weekly, hold 1 week prior to surgery: Adlyxin, Byetta, Bydureon, Ozempic, Rybelsus,Trulicity, Victoza, Wegovy, Lixisenatide, Exenatide, Semaglutide, Dulaglutide, Liraglutide GIP/GLP-1(Injection or Pill)- If taken daily hold day of surgery. If taken weekly, hold 1 week prior to surgery: Mounjaro . Blood thinners: Please contact your prescribing physician regarding a stop/hold date for these medications. Medications such as Coumadin, Heparin, Aspirin, Plavix, Eliquis, Pradaxa Diabetics: If you take insulin, contact your prescribing doctor for instructions on how to manage this the night before and the morning of surgery. Non-steriodal Anti-Inflammatory Drugs (NSAIDS)- Hold 3 days prior to surgery unless otherwise directed by your surgeon. Vitamins/Herbal Products: You may continue to take your prescribed vitamins such as potassium, iron, vitamin B, vitamin C, or multivitamin unless specifically instructed by your surgeon to hold. STOP taking all herbal products/teas one week prior to your surgery. Marijuana: Stop marijuana 72 hours prior to surgery, stop CBD oil 48 hours prior to surgery. If you have been given bowel prep instructions by your surgeon, please call the surgeon's office with any questions about these instructions. What do I do the day of Surgery? Age 2 through adult - Stop all solids by midnight, You may have clear liquids up to 2 hours before surgery, unless otherwise instructed by your surgeon Clear liquids are: water, sports drinks such as Gatorade or G2, or apple juice. You may NOT have: tube feedings, dairy products, alcoholic beverages, orange juice, or any liquids with solids or pulp in it If applicable, shower again with CHG soap the morning of your surgery. If you received a green plastic bracelet, bring it with you the day of surgery and your nurse will put it on you. What do I need to do to prepare for surgery? If you will be going home the same day as your surgery, arrange for an adult over [address] Riding in a bus or taxi by yourself is not permitted. You should not smoke or drink alcohol 24 hours before your surgery. Smoking increases the risk of breathing problems after surgery. Alcohol thins the blood and may cause bleeding problems during surgery If you have been assigned MARCO Education by your surgeon's office, please complete this education prior to your surgery. For questions regarding MARCO education, reach out to your surgeons office. If you have been given a prescription for occupational, physical or speech therapy, please set up these appointments before your procedure. If you would like to schedule therapy at a [facility] facility, please call [phone] ([phone]). Do not use lotions, creams, powders, perfume, make up, cologne or after-shaves day of surgery. Remove ALL jewelry including wedding rings, body piercings, hair extensions that contain metal, nail uzbek, make-up, and contact lens. You may brush your teeth the morning of surgery, but do not swallow the water. Wear your dentures and partial plates to the hospital (no adhesive). Shower the night the before. If applicable, use the CHG (chlorhexidine gluconate) soap or wipes. Please be advised, [employer] has transitioned to a cashless payment system. What should I bring to the hospital? If you received a green plastic bracelet, bring it with you the day of surgery and your nurse will put it on you. Eyeglass or contact lens case If you will be spending the night, please bring personal care items and leave them in the car until you are taken to your room after surgery. Leave ALL valuables at home. If any of these instructions conflict with those you recieved from the surgeon, please seek clarification from your surgeon's office. DEEP BREATHING EXERCISES This exercise helps promote good air exchange and helps to prevent pneumonia after surgery. Breathe in slowly and deeply through the nose. Hold your breath for a few seconds and then exhale slowly through the mouth. Repeat this three times and then cough. Coughing helps to clear your lungs. If you have had a surgery with an incision into your abdomen or chest, press gently against your incision with a pillow or a folded blanket when you cough. Please be aware - it may not be altamirano to cough following some types of surgeries involving the eyes, ears, sinuses and throat. Always follow your doctor's instructions. LEG EXERCISES These exercises help promote good circulation and help to prevent blood clots after surgery. Point your toes to the ceiling and then point them to the wall. Do this slowly about 15-20 times. You may also move your feet in circles. Do the exercise that is most comfortable for you. If you have had surgery involving your shoulder or arm, we recommend you move your fingers. PRACTICING We ask that you begin practicing these exercises before your surgery. After surgery try to do both exercises at least every 2 hours during the day and early evening. SURGICAL SITE INFECTION AND PREVENTION What is a Surgical Site Infection? Infection can happen to the area of the body where surgery is done. This is called a surgical site infection (SSI). A SSI does not happen very often. Can SSIs be treated? Antibiotics are used to treat SSI. Some patients may need another surgery to treat the infection. The doctor will discuss treatment options with you. What are some of the things that hospitals are doing to prevent SSIs? Soap and water or alcohol hand rub are used before and after caring for each patient.Special soap is used to clean surgery workers hands and arms just before the surgery. Masks, gowns, gloves and hair covers are worn during the surgery to keep the area clean. Hair in the surgery area may be removed with clippers (not razors). A special soap that kills germs is used to clean the skin at the surgery site. Antibiotics may be given before the surgery starts. What can you do to prevent SSIs? Before surgery: You may be asked to shower or bathe with a special soap that kills germs the night before and the day of surgery. Use the soap as you were told. If you smoke, stop or cut down. Ask your doctor about ways to quit. Do not shave near where you will have surgery. Shaving can irritate the skin and make it easier to get and infection. After surgery: Be sure that the doctors and nurses clean their hands before and after touching you. Be sure your family and friends clean their hands before and after visiting you. Do not be afraid to remind them. * Care for your wound at home as told by your doctor or nurse * Call your doctor right away if you have fever, redness, increased pain, or drainage at the surgery site. Further questions? Contact the doctor, nurse or the Infection Prevention and Control department if you have any questions. PATIENT RIGHTS AND RESPONSIBILITIES As a patient at [facility], you have the right to: Receive medical care and be informed of who is taking care of you Be treated with dignity and respect Have a family member/in store marketing representative of choice and your physician notified of your admission Receive information and actively participate in decisions about your care and treatment Refuse care, treatment and services Decide who may provide your support and speak for you Access oriental orthodox and spiritual services Participate in ethical issues and questions about your care Receive private and confidential care Have appropriate assessment and management of your pain Know guest visitation restrictions or limitations Have an advance directive Access protective services Consent or refuse to participate in research studies or production or recordings, films or other images Have resolution of your complaints Receive information of hospital charges and payment methods Patient/patient in store marketing representative responsibilities are to: Provide information about health status to facilitate care, treatment and services Follow the treatment, plan, keep appointments and speak up when you do not understand the plan Respect the rights of other patients and healthcare personnel Follow organizational rules and regulations that support quality care and a safe environment Fulfill financial obligations as promptly as possible [facility] 03-18-2024 Miscellaneous Notes Your surgery/procedure is scheduled at [facility] on 03/21/24 at 3;30 pm Arrival Time 12;30 pm [facility] Address: [address] [place] [address], [facility], [facility] Park in the Emergency Center Parking lot. Report to the front office associate in the Emergency/Surgery Registration lobby of the hospital. Notify your SURGEON if you develop any illness such as a cold, cough, fever, sore throat, vomiting or are hospitalized between now and your surgery. Please call Pre-Admission Clinic at [phone] if you have any questions prior to surgery. For questions the morning of surgery, call the Pre-op Department at [phone]. Medication Instructions (Do not stop your medications without consulting the prescribing physician). Take the following medications the morning of surgery with a sip of water: metoprolol Diabetic or Weight loss medications: HOLD n/a LAST DOSE n/a Take inhalers as prescribed the morning of surgery. Due to the risk associated with these medications. If these medications are not held per instruction below, your surgery is at an increased risk for cancellation SGLT2 Medications- Hold 3 days prior to surgery: Jardiance, Empagliflozin, Farxiga, Dapagliflozin, Invokana, Canagliflozin, Trijardy, Synjardy GLP-1 Medications (Injection or Pill)- If taken daily hold day of surgery. If taken weekly, hold 1 week prior to surgery: Adlyxin, Byetta, Bydureon, Ozempic, Rybelsus,Trulicity, Victoza, Wegovy, Lixisenatide, Exenatide, Semaglutide, Dulaglutide, Liraglutide GIP/GLP-1(Injection or Pill)- If taken daily hold day of surgery. If taken weekly, hold 1 week prior to surgery: Mounjaro . Blood thinners: Please contact your prescribing physician regarding a stop/hold date for these medications. Medications such as Coumadin, Heparin, Aspirin, Plavix, Eliquis, Pradaxa Diabetics: If you take insulin, contact your prescribing doctor for instructions on how to manage this the night before and the morning of surgery. Non-steriodal Anti-Inflammatory Drugs (NSAIDS)- Hold 3 days prior to surgery unless otherwise directed by your surgeon. Vitamins/Herbal Products: You may continue to take your prescribed vitamins such as potassium, iron, vitamin B, vitamin C, or multivitamin unless specifically instructed by your surgeon to hold. STOP taking all herbal products/teas one week prior to your surgery. Marijuana: Stop marijuana 72 hours prior to surgery, stop CBD oil 48 hours prior to surgery. If you have been given bowel prep instructions by your surgeon, please call the surgeon's office with any questions about these instructions. What do I do the day of Surgery? Age 2 through adult - Stop all solids by midnight, You may have clear liquids up to 2 hours before surgery, unless otherwise instructed by your surgeon Clear liquids are: water, sports drinks such as Gatorade or G2, or apple juice. You may NOT have: tube feedings, dairy products, alcoholic beverages, orange juice, or any liquids with solids or pulp in it If applicable, shower again with CHG soap the morning of your surgery. If you received a green plastic bracelet, bring it with you the day of surgery and your nurse will put it on you. What do I need to do to prepare for surgery? If you will be going home the same day as your surgery, arrange for an adult over [address] Riding in a bus or taxi by yourself is not permitted. You should not smoke or drink alcohol 24 hours before your surgery. Smoking increases the risk of breathing problems after surgery. Alcohol thins the blood and may cause bleeding problems during surgery If you have been assigned MARCO Education by your surgeon's office, please complete this education prior to your surgery. For questions regarding MARCO education, reach out to your surgeons office. If you have been given a prescription for occupational, physical or speech therapy, please set up these appointments before your procedure. If you would like to schedule therapy at a [facility] facility, please call [phone] ([phone]). Do not use lotions, creams, powders, perfume, make up, cologne or after-shaves day of surgery. Remove ALL jewelry including wedding rings, body piercings, hair extensions that contain metal, nail uzbek, make-up, and contact lens. You may brush your teeth the morning of surgery, but do not swallow the water. Wear your dentures and partial plates to the hospital (no adhesive). Shower the night the before. If applicable, use the CHG (chlorhexidine gluconate) soap or wipes. Please be advised, [facility] has transitioned to a cashless payment system. What should I bring to the hospital? If you received a green plastic bracelet, bring it with you the day of surgery and your nurse will put it on you. Eyeglass or contact lens case If you will be spending the night, please bring personal care items and leave them in the car until you are taken to your room after surgery. Leave ALL valuables at home. If any of these instructions conflict with those you recieved from the surgeon, please seek clarification from your surgeon's office. DEEP BREATHING EXERCISES This exercise helps promote good air exchange and helps to prevent pneumonia after surgery. Breathe in slowly and deeply through the nose. Hold your breath for a few seconds and then exhale slowly through the mouth. Repeat this three times and then cough. Coughing helps to clear your lungs. If you have had a surgery with an incision into your abdomen or chest, press gently against your incision with a pillow or a folded blanket when you cough. Please be aware - it may not be altamirano to cough following some types of surgeries involving the eyes, ears, sinuses and throat. Always follow your doctor's instructions. LEG EXERCISES These exercises help promote good circulation and help to prevent blood clots after surgery. Point your toes to the ceiling and then point them to the wall. Do this slowly about 15-20 times. You may also move your feet in circles. Do the exercise that is most comfortable for you. If you have had surgery involving your shoulder or arm, we recommend you move your fingers. PRACTICING We ask that you begin practicing these exercises before your surgery. After surgery try to do both exercises at least every 2 hours during the day and early evening. SURGICAL SITE INFECTION AND PREVENTION What is a Surgical Site Infection? Infection can happen to the area of the body where surgery is done. This is called a surgical site infection (SSI). A SSI does not happen very often. Can SSIs be treated? Antibiotics are used to treat SSI. Some patients may need another surgery to treat the infection. The doctor will discuss treatment options with you. What are some of the things that hospitals are doing to prevent SSIs? Soap and water or alcohol hand rub are used before and after caring for each patient.Special soap is used to clean surgery workers hands and arms just before the surgery. Masks, gowns, gloves and hair covers are worn during the surgery to keep the area clean. Hair in the surgery area may be removed with clippers (not razors). A special soap that kills germs is used to clean the skin at the surgery site. Antibiotics may be given before the surgery starts. What can you do to prevent SSIs? Before surgery: You may be asked to shower or bathe with a special soap that kills germs the night before and the day of surgery. Use the soap as you were told. If you smoke, stop or cut down. Ask your doctor about ways to quit. Do not shave near where you will have surgery. Shaving can irritate the skin and make it easier to get and infection. After surgery: Be sure that the doctors and nurses clean their hands before and after touching you. Be sure your family and friends clean their hands before and after visiting you. Do not be afraid to remind them. * Care for your wound at home as told by your doctor or nurse * Call your doctor right away if you have fever, redness, increased pain, or drainage at the surgery site. Further questions? Contact the doctor, nurse or the Infection Prevention and Control department if you have any questions. PATIENT RIGHTS AND RESPONSIBILITIES As a patient at [facility], you have the right to: Receive medical care and be informed of who is taking care of you Be treated with dignity and respect Have a family member/in store marketing representative of choice and your physician notified of your admission Receive information and actively participate in decisions about your care and treatment Refuse care, treatment and services Decide who may provide your support and speak for you Access oriental orthodox and spiritual services Participate in ethical issues and questions about your care Receive private and confidential care Have appropriate assessment and management of your pain Know guest visitation restrictions or limitations Have an advance directive Access protective services Consent or refuse to participate in research studies or production or recordings, films or other images Have resolution of your complaints Receive information of hospital charges and payment methods Patient/patient in store marketing representative responsibilities are to: Provide information about health status to facilitate care, treatment and services Follow the treatment, plan, keep appointments and speak up when you do not understand the plan Respect the rights of other patients and healthcare personnel Follow organizational rules and regulations that support quality care and a safe environment Fulfill financial obligations as promptly as possible documented in this encounter [facility] [employer] 03-16-2024 Note Patient seen in clin ic today for cross - coverage with Dr. Lui: complicated patient with breast cancer, M. Abscesses infection of skin / soft tissue of breast originally on the right side only, and placed on on primaxin, tedezolid, clofazimine to which the Mycobacterium was sensitive-she had some extension of her original infection with possibly some tunneling and presentation of drainage and abscess on the left breast and underwent a debridement on February 24 -the Mycobacterium remains sensitive to the 3 antibiotics and difficult to tell whether this was extension of the original disease and antibiotic failure versusrecognition of the extent of the original infection -the patient is now status post surgery 2 to 3 weeks and the incision is doing well she has no drainage where the pictures from the exam is listed below and the other 2 are in the media law faculty member section from today's date -she has a line in place as well in the left chest which is within normal limits -discussed the patient with Dr. Anglin and Avi Bee our Pharm.D. There are multiple additional treatment issues that are being weighed right now and other confounding factors that are complicating treatment such as a known allergy to tetracyclines and a denial from the insurance company for a referral to an printed circuit boards router, need to start chemotherapy within the next 3 months, a planned oophorectomy in mid April, and an upcoming vacation in the next 2 weeks where she will be out of town. So given all that, the plan is as follows: 1) the patient will continue her current medications of Primaxin today's a lid and clofazimine. 2) Dr. Lui will consult with mycobacterial experts at [facility] regarding the risk of worsening or inability control the current mycobacterial infection with the planned chemotherapeutic agents and then he will [place] back with oncology as well -if there is no risk beyond neutropenia, then ideally the patient can start oral chemotherapeutic agents as per oncology within the next 3 months as planned otherwise may need to look for an alternative agent -I will call Dr. Hope just to make sure we keep him in the loop on this: Ideally would like to have the patient on a stable antimycobacterial regimen status post debridement status post the oophorectomy prior to starting chemotherapy 3) our pharmacist will begin the application process for the omadicylcline -if that is approved, then we shall do a peer to peer review with the insurance company to push for the allergy immunology testing 4) we will add amikacin right now 3 times a week and Dr. Lui will put those orders in including all the follow-up testing 5) I will call Dr. Rosado -agree with additional debridement if he can do this just to try to decrease the bioburden especially as he was concerned about tunneling and a second look would be warranted in this case The patient is going to need to communicate to us through [employer] and she has an appointment scheduled for April 16 but by then we should have had the following accomplished -Oophorectomy -Second look debridement -Approval of the omadacycline and a referral to allergy completed or, if this does not occur, just continuation of the current 3 drug regimen with the addition of amikacin -Holding on the chemotherapy until the end of April if possible Addendum: spoke with Dr. Rosado ([phone]) and his staff will call her to get her on the surgery schedule. Spoke with Dr. Hope ([phone]) and he will try to start chemo in late April [facility] 03-15-2024 Miscellaneous Notes [facility] [place] (Radiology) Requested Most Recent Office Note Faxed at 4:45pm 03/15/24 documented in this encounter [facility] 03-15-2024 Telephone encounter Note [facility] [place] (Radiology) Requested Most Recent Office Note Faxed at 4:45pm 03[facility]15[facility] History of Present illness Narrative Reason for Appointment: Patient ID: Ike Flannery is a 53 y.o. female who presents for No chief complaint on file. Patient presents today for Pre Op appointment. Patient is scheduled to undergo Da Jason assisted Diagnostic Laparoscopy with Bilateral Salpingo-Oophorectomy, possible BEATA, possible FOE on 04/07/[address] Thompson at [facility]. MEDICATIONS Current Outpatient Medications Medication Instructions chlorthalidone (HYGROTON) 25 mg, Oral, Daily cyclobenzaprine (FLEXERIL) 10 mg, Oral, 3 times daily PRN dexAMETHasone (Decadron) 1 MG tablet TAKE ONE TABLET BY MOUTH TWICE A DAY ON DAYS 3-6 AFTER CHEMOTHERAPY FOR FATIGUE FeroSul 325 (65 Fe) MG tablet TAKE 1 TABLET (325 MG TOTAL) BY MOUTH IN THE MORNING. fluticasone (Flonase) 50 MCG/ACT nasal spray Every 24 hours gabapentin (Neurontin) 300 MG capsule TAKE ONE CAPSULE BY MOUTH TWICE A DAY FOR HOT FLASHES hydroCHLOROthiazide (HYDRODiuril) 12.5 MG tablet Every 24 hours HYDROcodone-acetaminophen ([place]) 5-325 MG tablet TAKE ONE TABLET BY MOUTH EVERY 6 HOURS NEEDED FOR PAIN SCALE 4 TO 6 lidocaine-prilocaine (Emla) 2.5-2.5 % cream APPLY QUARTER SIZE AMOUNT TO [facility], 30 MINS BEFORE CHEMO BLOOD DRAW lisinopril-hydroCHLOROthiazide 20-12.5 MG tablet 1 tablet, Oral, Daily lisinopril-hydroCHLOROthiazide 20-25 MG tablet Every 24 hours lisinopril 20 mg, Oral, Daily metoprolol succinate XL (TOPROL-XL) 100 mg, Oral, Daily RT potassium chloride CR (Klor-Con) 10 MEQ ER tablet TAKE 4 TABLETS (40 MEQ) BY MOUTH ONCE DAILY FOR 2 DAYS. DO NOT CRUSH, CHEW, OR SPLIT. predniSONE (DELTASONE) 5 mg, Oral, Daily RT prochlorperazine (Compazine) 10 MG tablet TAKE ONE TABLET BY MOUTH THREE TIMES A DAY NEEDED FOR NAUSEA spironolactone (ALDACTONE) 25 mg, Oral, Daily RT traZODone (DESYREL) 50 mg, Oral, Nightly ALLERGIES Allergies Allergen Reactions Meperidine Swelling and Unknown Daptomycin Other Other Reaction(s): Flushing Meperidine Hcl Unknown Tetracycline Tigecycline Hives Rash vomiting Vancomycin Doxycycline Rash Wound Dressing Adhesive Unknown and Rash PROBLEMS Active Ambulatory Problems Diagnosis Date Noted Complex ovarian cyst 05/26/2023 Invasive ductal carcinoma of breast, right (CMS/HCC) 05/26/2023 Well woman exam with routine gynecological exam 05/26/2023 Retinal tear of right eye 12/30/2023 Vitreous hemorrhage of right eye (CMS/HCC) 12/30/2023 Resolved Ambulatory Problems Diagnosis Date Noted No Resolved Ambulatory Problems Past Medical History: Diagnosis Date Cardiac dysrhythmia HTN (hypertension) (CMS/HCC) Hypokalemia Migraine headache (CMS/HCC) HISTORY PAST MEDICAL HISTORY SOCIAL HISTORY Past Medical History: Diagnosis Date Cardiac dysrhythmia HTN (hypertension) (CMS/HCC) Hypokalemia Migraine headache (CMS/HCC) Social History Tobacco Use Smoking status: Never Smokeless tobacco: Never Substance Use Topics Alcohol use: Never Comment: Caffeine intake: 1-2 cups per day Drug use: Never FAMILY HISTORY Family History Adopted: Yes Problem Relation Name Age of Onset Heart disease Father SURGICAL HISTORY Past Surgical History: Procedure Laterality Date ANTERIOR CRUCIATE LIGAMENT REPAIR Right 2006 Reny BI US GUIDED BREAST LOCALIZATION RIGHT Right 10/16/2023 BI US GUIDED BREAST LOCALIZATION RIGHT 10/16/2023 BREAST BIOPSY Right CYSTOSCOPY 2019 KNEE ARTHROSCOPY W/ MENISCECTOMY Right 01/21/2021 Partial lateral- Dr. Oglesby KNEE ARTHROSCOPY W/ PARTIAL MEDIAL MENISCECTOMY Left 08/26/2021 Dr. Oglesby LIPOMA RESECTION 2015 upper back TONSILLECTOMY TOTAL ABDOMINAL HYSTERECTOMY 2006 REVIEW OF SYSTEMS Review of Systems: Review of Systems Constitutional: Negative. HENT: Negative. Eyes: Negative. Respiratory: Negative. Cardiovascular: Negative. Gastrointestinal: Negative. Genitourinary: Negative. Musculoskeletal: Negative. Skin: Negative. Neurological: Negative. All other systems reviewed and are negative. Hematological: Negative. Endocrine: Negative. Allergic/Immunologic: Negative. OBJECTIVE Objective: Physical Exam Constitutional: Appearance: Normal appearance. She [...] nursing note reviewed. Exam conducted with a senior clinical research scientist present. Vitals: Estimated body mass index is 28.87 kg/m as calculated from the following: Height as of 01/25/24: 5' 11 . Weight as of 02/15/24: 207 lb. BP: No LMP recorded. Patient has had a hysterectomy. ASSESSMENT & PLAN ICD-10-CM 1. Pre-op examination Z01.818 2. H/O malignant neoplasm of breast Z85.3 Pre Op: Patient is doing well and has no complaints. Patient has history of breast cancer and is currently under going treatments. I have discussed conservative management vs. surgical management with the patient in detail and patient desires surgical management at this time. Patient will undergo Da Jason assisted Diagnostic Laparoscopy with Bilateral Salpingo-Oophorectomy, possible BEATA, possible FOE on 04/07/2024. Surgical consents were signed, mmc was reviewed, and patient is to proceed to [facility] OR. Follow Up: Patient is to follow up between 1-2 weeks post operative to assess proper healing and recovery from procedure. Documented by Catie Walker LPN on behalf of: Evan Thompson DO documented in this encounter [facility] 03-02-2024 Miscellaneous Notes Contract: [address] Mila @[facility] called with a critical result Called Dr Rosado cell and left message to call [facility]. Called Dr Rosado cell and left message to call [facility]. Called Dr Rosado cell and left message to call [facility]. Called Dr Rosado cell and left message to call [facility]. Called Dr Rosado cell and left message to call [facility] Called Dr Rosado cell and left message to call [facility]. Dr Rosado called and connected with lab. documented in this encounter [facility] 03-02-2024 Telephone encounter Note Contract: [address] @[facility] called with a critical result [facility] 03-02-2024 Telephone encounter Note Called Dr Rosado cell and left message to call [facility]. [facility] 03-02-2024 Telephone encounter Note Called Dr Rosado cell and left message to call [facility]. [facility] 03-02-2024 Telephone encounter Note Called Dr Rosado cell and left message to call [facility]. [facility] 03-02-2024 Telephone encounter Note Called Dr Rosado cell and left message to call [facility]. [facility] 03-02-2024 Telephone encounter Note Called Dr Rosado cell and left message to call [facility] 03-02-2024 Telephone encounter Note Called Dr Rosado cell and left message to call [facility]. [facility] 03-02-[address] Rosado called and connected with lab. [facility] 02-29-2024 Miscellaneous Notes Attempted to call patient to reschedule her 1/[address] Rosado If patient calls back please place her on 1/[address] Rosado documented in this encounter [facility] 02-29-2024 Telephone encounter Note Attempted to call patient to reschedule her 1/[address] Rosado If patient calls back please place her on 1/[address] Rosado [facility] 02-25-2024 History of Present illness Narrative [facility] [address] Office Jhon Rosado MD, PhD Marisela Cuevas, LINE DRIVER-YOGHURT MAKER INÉS King APRN-ESPERANZA Plastic Surgery Progress Note Reason for visit : New left breast wound History of present illness: Ike Flannery 53 y.o. is here today for a follow up after developing a new left breast wound earlier this week. She has a history of right breast cancer status post bilateral skin sparing mastectomies and tissue battery parts assembler reconstruction in October 2023. Her postoperative course was complicated by an infected seroma of her left breast requiring operative washout and tissue battery parts assembler removal in November 2023. 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 She also recently completed postmastectomy radiation therapy to her right chest wall. She complains of intermittent drainage of cloudy yellow fluid from her left breast. A family friend who is a wound care coordinator had the patient start packing the wound with silver impregnated dressing. She complains of minimal pain associated with her left breast, but complains of burning pain associated with the right breast given her recent completion of radiation therapy. She otherwise denies recent fever/chills, increasing redness and purulence. No other interval changes in medical history. Review of Systems Negative for fevers, chills. All other symptoms negative except as noted in HPI. Physical Examination: Vitals: 02/25/24 1410 BP: (!) 154/91 Pulse: 93 Resp: 16 Temp: 36.4 C (97.6 F) There is no height or weight on file to calculate BMI. GENERAL: no acute distress, well developed, well nourished. LYMPHATIC: no upper extremity lymphedema; extremities warm, well perfused. NEUROLOGIC: alert and oriented to time, place and person. PSYCH: judgement and insight good, mood/affect full range. Focused examination : Open wound is present along vertical component of previous left breast altamirano pattern incision measuring approximately 0.5 x 0.5 cm and tracking down to the underlying chest wall upon cotton tip applicator probing, small amount of seropurulent drainage could be manually expressed from the wound but no appreciable fluctuance, surrounding breast skin is soft with no erythema or induration, previous left breast drain insertion site along lateral chest wall also appears irritated and tracts upwards towards new left breast wound, right breast tissue battery parts assembler remains in place along inframammary fold, acute radiation-induced skin changes are present on right breast skin envelope, bilateral nipples are surgically absent Female senior clinical research scientist present - yes Impression: 1. Breast wound, left, sequela 2. S/P breast reconstruction, bilateral Recommendations: I explained to the patient and her that the new breast wound is likely the result of a small residual seroma cavity that has worked its way up through her previous incision. My suspicion is that this also connects with her previous drain insertion site along the left lateral chest wall. She remains on oral antibiotics per Infectious Disease recommendations for her previous mycobacterium infection. She is otherwise afebrile, hemodynamically stable and nontoxic in appearance. Discussed two different management options, namely continuing dressing changes and healing by secondary intention versus secondary closure in the operating room with possible drain placement. Given the possible connection between the left breast and previous drain insertion site wounds, I recommended operative exploration with secondary closure. Both the patient and her were agreeable with this plan. Discussed risks, benefits and alternatives. Discussed postop recovery. Patient wishes to proceed. We will add patient onto the OR schedule for tomorrow. This procedure will be performed on an outpatient basis under general anesthesia. Consent on day of surgery. Please note that portions of this note were generated using voice recognition [employer] dictation software. Although every effort was made to ensure the accuracy of this automated ball mill operator, some errors in ball mill operator may have occurred. I, JHON ROSADO MD, PHD personally performed the face to face evaluation on this patient on February 25, 2024. The patient was seen with Joya Gray CMA. I discussed with the patient and confirmed the accuracy and completeness of the aforementioned history, and I personally performed the clinical examination of the patient. I have established and discussed the course of treatment with the patient. My medical decision making and treatment plan are as follows: Plan as stated above. Jhon Rosado MD, PhD [facility] Total time spent was 25 minutes: Preparing to see the patient (e.g., review of tests) Obtaining and/or reviewing separately obtained history Performing a medically appropriate examination and/or evaluation Counseling and educating the patient/family/caregiver Ordering medications, tests, or procedures Documenting clinical information in the electronic or other health record Independently interpreting results (not separately reported) and communicating results to the patient/family/caregiver Care coordination (not separately reported) documented [facility] [employer] Miscellaneous Notes The patient contacted the after hours clinic this evening reporting a new open wound on her left breast that developed earlier today. The wound is located along the vertical component of her previous [place] pattern incision. I spoke to the patient personally by telephone. She complains of serous drainage from the wound which has saturated through some dry gauze. She remains on oral antibiotics for her mycobacterium infection per Infectious Disease recommendations. She denies recent fever/chills, increasing redness and purulence. She denies recent trauma to the region. I explained to the patient that she likely has a small residual seroma cavity that has now worked its way through her previous incision. I recommended that she apply dry gauze to the open wound and change it as needed as well as remain in gentle compression. I will make an appointment for her to be evaluated in clinic this upcoming . Discussed warning signs, and if present, the patient was instructed to either call back or go to the nearest emergency department for further evaluation. She was agreeable with this plan. documented in this [facility] Telephone encounter Note The patient contacted the after hours clinic this evening reporting a new open wound on her left breast that developed earlier today. The wound is located along the vertical component of her previous Alt[place]irano pattern incision. I spoke to the patient personally by telephone. She complains of serous drainage from the wound which has saturated through some dry gauze. She remains on oral antibiotics for her mycobacterium infection per Infectious Disease recommendations. She denies recent fever/chills, increasing redness and purulence. She denies recent trauma to the region. I explained to the patient that she likely has a small residual seroma cavity that has now worked its way through her previous incision. I recommended that she apply dry gauze to the open wound and change it as needed as well as remain in gentle compression. I will make an appointment for her to be evaluated in clinic this upcoming . Discussed warning signs, and if present, the patient was instructed to either call back or go to the nearest emergency department for further evaluation. She was agreeable with this plan. [facility] Miscellaneous Notes Contract: [id number] Pt called said she has a a dehiscence wound from breast surgery that is leaking. Dr Rosado called back, connected to pt. documented in this encounter [facility] Telephone encounter Note Contract: [id number] Pt called said she has a a dehiscence wound from breast surgery that is leaking[facility] Rosado called back, [facility] to pt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 Consent signed and reviewed with Avi Cardenas [facility], patient and myself. Everyday, Thursday-Thursday for 20 days Radiation therapy. Keytruda starting on Thursday Oopherectomy plannned Update potassium dose On b6 and b12 On anastrozole. Clofazimine started on 02/14March 18 EKG Mar 24- trip to [place], advised wearing a mask while in crowded places, would avoid public pools, showers, water méndez Recommendations: Continue on PO Tedizolid 200mg once daily Continue clofazamine 100mg once daily, started on 02/14 Imipenem has been extended an additional 4 weeks Will meet with allergy and immunology to discuss tetracycline allergy and possible desensitization Discussed with sec accountant. PA appeal pending. Will need monitoring labs and skidder runner H/H if it remains persistently low may have to consider discontinuing tidezolid. Follow Up: In about 6 weeks Subjective History of Present Illness: Doing well, currently on Tedizolid, imipenem and clarithromycin. Will have her discontinue clarithromycin, continue imipenem and Tedizolid. Plan to proceed with Radiation therapy. IRB approval for Clofazamine has been obtained, Has started on 02/14, appeal for prior authorization is pending From previous note Mycobacterium abscessum Skin and Soft Tissue Infection: Suspect ocean water exposure in August as the initial trigger followed by breast battery parts assembler placement. Source control was achieved with battery parts assembler removal in October. The skin appears healthy [...] the right breast. ER negative (weakly positive) AR negative HER2 negative. Was previously on chemotherapy [...] interim history Objective Physical Examination : BP 155/90 Pulse 85 Temp 36.6 ???C (97.8 ???F) (Oral) Wt 93 kg (205 lb) SpO2 99% BMI 28.59 kg/m??? Temperature Range: Temp: 36.6 ???C (97.8 ???F) @FLOWSTAT(6:24)@ General Appearance: Awake, alert, and [...] I have independently reviewed the following labs: Labs reviewed in media tab, hypokalemia continues Hg/hematocrit: 7.8/23.2 respectively Imaging Studies: NO new imaging Cultures: None Medications: Current Outpatient Medications: acetaminophen (Tylenol) 500 mg tablet, Take 500 mg by mouth every 4 (four) hours if needed for mild pain (1-3 pain score). Takes as needed for knee pain. Takes approximately 3 doses per week., Disp: , Rfl: apixaban (Eliquis) 5 mg tablet, Take 5 mg by mouth two times daily., Disp: , Rfl: calcium carbonate (Tums) 200 mg calcium (500 mg) chewable tablet, Chew 1 tablet if needed each day for indigestion or heartburn. Strength not specified by patient, Disp: , Rfl: cyanocobalamin (Vitamin B-12) 1,000 mcg tablet, Take 1,000 mcg by mouth in the morning., Disp: , Rfl: cyclobenzaprine (Flexeril) 10 mg tab (more content not included)... [facility] 02-15-2024 Note Will have additional follow up on 04/18 where we will discuss continued antibiotic therapy. In process of completing PA for omadacycline Continue on Tidelzolid Would extend imipenem for 4 additional weeks. Can be discontinue early if we are able to obtain omadacycline and de-sensitize her appropriately. [facility] 02-15-2024 History of Present illness Narrative Reason for Appointment: Patient ID: Ike Flannery is a 53 y.o. female who presents for Discuss Procedure (Pt present today to discuss an ovary removal.) Patient presents today for Consult appointment. MEDICATIONS Current Outpatient Medications Medication Instructions chlorthalidone (HYGROTON) 25 mg, Oral, Daily cyclobenzaprine (FLEXERIL) 10 mg, Oral, 3 times daily PRN dexAMETHasone (Decadron) 1 MG tablet TAKE ONE TABLET BY MOUTH TWICE A DAY ON DAYS 3-6 AFTER CHEMOTHERAPY FOR FATIGUE FeroSul 325 (65 Fe) MG tablet TAKE 1 TABLET (325 MG TOTAL) BY MOUTH IN THE MORNING. fluticasone (Flonase) 50 MCG/ACT nasal spray Every 24 hours gabapentin (Neurontin) 300 MG capsule TAKE ONE CAPSULE BY MOUTH TWICE A DAY FOR HOT FLASHES hydroCHLOROthiazide (HYDRODiuril) 12.5 MG tablet Every 24 hours HYDROcodone-acetaminophen ([place]) 5-325 MG tablet TAKE ONE TABLET BY MOUTH EVERY 6 HOURS NEEDED FOR PAIN SCALE 4 TO 6 lidocaine-prilocaine (Emla) 2.5-2.5 % cream APPLY QUARTER SIZE AMOUNT TO AREA OF MEDIPORT, 30 MINS BEFORE CHEMO BLOOD DRAW lisinopril-hydroCHLOROthiazide 20-12.5 MG tablet 1 tablet, Oral, Daily lisinopril-hydroCHLOROthiazide 20-25 MG tablet Every 24 hours lisinopril 20 mg, Oral, Daily metoprolol succinate XL (TOPROL-XL) 100 mg, Oral, Daily RT potassium chloride CR (Klor-Con) 10 MEQ ER tablet TAKE 4 TABLETS (40 MEQ) BY MOUTH ONCE DAILY FOR 2 DAYS. DO NOT CRUSH, CHEW, OR SPLIT. predniSONE (DELTASONE) 5 mg, Oral, Daily RT prochlorperazine (Compazine) 10 MG tablet TAKE ONE TABLET BY MOUTH THREE TIMES A DAY NEEDED FOR NAUSEA spironolactone (ALDACTONE) 25 mg, Oral, Daily RT traZODone (DESYREL) 50 mg, Oral, Nightly ALLERGIES Allergies Allergen Reactions Meperidine Swelling and Unknown Daptomycin Other Other Reaction(s): Flushing Meperidine Hcl Unknown Tetracycline Tigecycline Hives Rash vomiting Vancomycin Doxycycline Rash Wound Dressing Adhesive Unknown and Rash PROBLEMS Active Ambulatory Problems Diagnosis Date Noted Complex ovarian cyst 05/26/2023 Invasive ductal carcinoma of breast, right (CMS/HCC) 05/26/2023 Well woman exam with routine gynecological exam 05/26/2023 Retinal tear of right eye 12/30/2023 Vitreous hemorrhage of right eye (CMS/HCC) 12/30/2023 Resolved Ambulatory Problems Diagnosis Date Noted No Resolved Ambulatory Problems Past Medical History: Diagnosis Date Cardiac dysrhythmia HTN (hypertension) (CMS/HCC) Hypokalemia Migraine headache (CMS/HCC) HISTORY PAST MEDICAL HISTORY SOCIAL HISTORY Past Medical History: Diagnosis Date Cardiac dysrhythmia HTN (hypertension) (CMS/HCC) Hypokalemia Migraine headache (CMS/HCC) Social History Tobacco Use Smoking status: Never Smokeless tobacco: Never Substance Use Topics Alcohol use: Never Comment: Caffeine intake: 1-2 cups per day Drug use: Never FAMILY HISTORY Family History Adopted: Yes Problem Relation Name Age of Onset Heart disease Father SURGICAL HISTORY Past Surgical History: Procedure Laterality Date ANTERIOR CRUCIATE LIGAMENT REPAIR Right 2007 Reny BI US GUIDED BREAST LOCALIZATION RIGHT Right 10/16/2023 BI US GUIDED BREAST LOCALIZATION RIGHT 10/16/2023 BREAST BIOPSY Right CYSTOSCOPY 2019 KNEE ARTHROSCOPY W/ MENISCECTOMY Right 01/21/2021 Partial lateral- Dr. Oglesby KNEE ARTHROSCOPY W/ PARTIAL MEDIAL MENISCECTOMY Left 08/26/2021 Dr. Oglesby LIPOMA RESECTION 2015 upper back TONSILLECTOMY TOTAL ABDOMINAL HYSTERECTOMY 2006 REVIEW OF SYSTEMS Review of Systems: Review of Systems Genitourinary: Positive for pelvic pain and vaginal pain. All other systems reviewed and are negative. OBJECTIVE Objective: Physical Exam Constitutional: Appearance: Normal appearance. She [...] nursing note reviewed. Exam conducted with a senior clinical research scientist present. Vitals: Estimated body mass index is 28.87 kg/m as calculated from the following: Height as of 01/25/24: 5' 11 . Weight as of this encounter: 207 lb. BP: 124/72 No LMP recorded. Patient has had a hysterectomy. ASSESSMENT & PLAN ICD-10-CM 1. Encounter to discuss procedure Z71.89 Patient presents for consult for hysterectomy. Discussed conservative methods verses surgical management & patient would like to proceed to OR for hysterectomy. Patient will have surgery setup with Dr. Gonsalez as well as patient will need to have urinary stents placed. Deliver Driver will reach out to patient once surgery is setup. Patient to return to clinic for pre-op appointment. Documented by Catie Walker LPN on behalf of: Evan Thompson DO documented in this encounter [facility] 02-11-2024 Note Clinical Reasoning Patient has a history of Mycobacterium abscessus skin and soft tissue infection related to previous breast surgery and placement of a Mediport. She has a history of right invasive ductal carcinoma of the breast status post bilateral mastectomy undergoing radiation therapy. She has previously completed chemotherapy with carboplatin, paclitaxel, Keytruda. The positive Mycobacterium abscessus cultures come from the left surgical breast wound in relation to where a breast battery parts assembler was placed. She has macrolide resistant Mycobacterium abscessus. Macrolides are the mainstay and backbone of any nontuberculous mycobacterial infection treatment. In addition she is resistant to several other drug classes including fluoroquinolones, early generation tetracyclines including doxycycline minocycline, Bactrim and has intermediate sensitivity to carbapenems like imipenem. She is also resistant/intermediate to linezolid and has significant resistance to other Mycobacterium abscessus related cephalosporins such as cefoxitin. Given her history of MIRNA and underlying CKD patient is not a good candidate for 6 months of IV amikacin given the concern for worsening kidney function as well as auto and vestibular toxicity. There is good data and published literature at this point to show that when patients are susceptible to tigecycline that oral minocycline is a good oral transition. In addition patient needs to remain on at least 3 drugs in the setting of a complicated skin and soft tissue infection secondary to Mycobacterium abscessus. We have been able to secure Tedizolid and clofazimine, will need omadacycline for proper 3 drug regimen. This will also have the advantage of being an all oral regimen, which would spare patient the need for additional lines and IV access. She is going to resume keytruda and given that she will remain on immune modulating therapies she is at high risk of infection relapse. In addition should there be any plans for breast reconstruction either with living tissue or an implant, if we do not treat infection appropriately we risk failure of any future procedures potentially causing additional harm and distress to the patient Her resistance as tested at [facility] is below: Sources: Cuauhtemoc Au, Clement Curry, Nicci Lacey, Michael Heard, Emily Hamilton, Kayleigh Gutierrez, Michael Michelle, Aye Hopson, Marianna Draper, Efficacies of three drug regimens containing omadacycline to treat Mycobacteroides abscessus disease, Tuberculosis, Volume 146, 2023, 950003, ISSN 4736-6003, https://doi.org/10.1016/j.tube.2 024.371814. Omadacycline as a promising new agent for the treatment of infections with Mycobacterium abscessus J Antimicrob Chemother 2019; 74: 6198-0257 doi:10.1093/peyman/hko853 Advance Access publication 23 August 2018 Jean SHORT, Kyree LORENZANA, Jr. 2020. In vitro susceptibility testing of omadacycline against nontuberculous mycobacteria. Antimicrob Agents Chemother 65:b36541-91. https://doi.org/10.1128/AAC.0194 09-18. León Berry, Kalpana D, Camilo M, Ermelinda Valdez. 2019. In vitro activities of omadacycline against rapidly growing mycobacteria. Antimicrob Agents Chemother 63:j73789-73. https://doi.org/10.1128/AAC .01644-61. Omadacycline for treatment of Mycobacterium chelonae skin infection Iliana Sin MSa , Alisha Marcelo MDb, and Monique Delacruz PROC ([facility]) 2020;33(4):610-611 Copyright # 2020 [facility] https://doi.org/10.1080/44923788 .2020.0694641 Herman Lui DO [facility] Infectious Disease [facility] 02-10-2024 Telephone encounter Note I suggested she speak with her infectious disease physician about either selecting a different agent or writing a letter for the insurance company to get the procedure covered. [facility] 02-10-2024 Miscellaneous Notes I suggested she speak with her infectious disease physician about either selecting a different agent or writing a letter for the insurance company to get the procedure covered. documented in this encounter [facility] 01-26-2024 History of Present illness Narrative Patient's [...] call 8 minutes. documented in this encounter [facility] 01-25-2024 History of Present illness Narrative Ike Flannery is a very pleasant 53 y.o. year [...] as an inpatient in the ICU at [facility]. I will call the hospitalist at [facility] tomorrow about direct admission to the ICU for this procedure in the next several days. I explained to the patient the need to stop her toprol 36 hours before her procedure. She is on this for Trigeminy and HTN. I asked her to communicate with her medical oncology physician whether she can stop this medication briefly for 36 hours prior to her procedure. Time of Visit 70 minutes including review of prior records and communicating with her referring infectious disease physician on the phone and contact the patient after hours to discuss the final plan. 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 Consent signed and reviewed with Avi Cardenas [facility], patient and myself. Everyday, Thursday-Thursday for 20 [...] as the initial trigger followed by breast battery parts assembler placement. Source control was achieved with battery parts assembler removal in October. The skin appears healthy [...] the right breast. ER negative (weakly positive) AR negative HER2 negative. Was previously on chemotherapy [...] , Rfl: T (more content not included)... [facility] 12-30-2023 History of Present illness Narrative Images [...] told to continue her Eliquis.) Refer to Evon MASON. documented in this encounter [facility] 12-30-2023 Note Attestation signed by Herman Lui DO at 12/31/2023 11:07 PM I performed a history and physical examination of the patient Ike Flannery, I independently reviewed the laboratory work and imaging as well as other studies mentioned in the above note; I have seen the patient along with and discussed the management with the Infectious Diseases fellow, Scott Rodriguez DO I have reviewed the above note, I agree with the findings and plan of care with the following additions and corrections: Agree with above complicated with right breast malignancy s/p bilateral mastectomy with tissue battery parts assembler placed in 10/28/2023. [place] water exposure was approximately a month prior making the port on the left side the possible portal of entry. Tissue battery parts assembler has been taken out, the left chest [...] well as her oncologist. Have sent e-consult [facility]. Started IRB process for Clofazimine approval Will inquire about tedizolid availability. At this time will continue linezolid, clarithromycin and imipenem. Thank you for allowing us to participate in the care of this patient. . Subjective Patient ID: Tia Flannery is a 53 y.o. female who presents for Invasive ductal carcinoma. The patient is here for a follow-up for her left Mycobacterium abscessum abscess. She has a stage IIIc, 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 ER negative (weakly positive) AR negative HER2 negative. She received neoadjuvant chemotherapy with carboplatin and paclitaxel and Keytruda on September 28. Of note, she went to the ocean shortly after September 28 and believes that she might have gotten water splashed from the ocean on her port. She underwent double mastectomy in October 2023 at which point the spacer was placed. She had a tissue battery parts assembler on her left breast that was removed in October because of the mycobacterial infection. At the time, the breast became erythematous with the battery parts assembler in place. Culture grew Mycobacterium abscessum. The battery parts assembler was removed November 25 and it was [...] intended. She is going to Radiology at [facility] in [place]. She is currently on oral clarithromycin 500 [...] the morning. c (more content not included)... [facility] 12-29-2023 Evaluation note Diagnosis Onset Date Resolution Breast cancer, right acute Octo markel 2023 10:50am Mycobacterium abscessus infection acute February 10, 024 2:21pm Breast cancer, right acute Garfield randolph 2024 2:42pm [facility] Work Phone: [phone] History of Present illness Narrative* Shereen Smallwood PA-C - 12/29/2023 8:30 AM EDT [facility] [address] Office Jhon Rosado MD, PhD Marisela Cuevas, LINE DRIVER-YOGHURT MAKER INÉS King APRN-YOGHURT MAKER Plastic Surgery Progress Note Reason for visit : Postoperative visit History of present illness: Ike Flannery 53 y.o. is here today for a follow up. Patient underwent bilateral skin sparing mastectomies and right axillary node dissection (Dr. He) with immediate bilateral breast reconstruction with placement of tissue expanders and right prophylactic lympho venous bypass on 10/29/23. Patient unfortunately developed an infection of her left tissue battery parts assembler and went underwent I&D of left breast was removal of tissue battery parts assembler 11/27/2023. She presents tothe office today for tissue battery parts assembler filled. She reports that she meets with radiation oncology next week for possible simulation. She is doing well however she does wish to be proximally a D cup andfeels that she is a high see at present. Her breast is tight and she is uncertain whether she can accommodate more volume. Procedure note : Tissue battery parts assembler fill port, was identified using magnet. This area was cleansed with alcohol, and Betadine. Then using a 25 gauge needle, approximately 75ml normal saline was injectedinto right tissue battery parts assembler(s). Patient tolerated well. Adequate hemostasis was achieved, [...] of right breast of female, estrogen receptor positive(CMS-HCC) Recommendations: Patient tolerated the MAGO fill. We [...] this note were generated using voice recognition [employer] dictation software. Although every effort was made to ensure the accuracy of this automated ball mill operator, some errors in ball mill operator may have occurred. Shereen Smallwood PA-C 12/29/23 1349 [facility] Discharge instructions Patient Education 12/28/2023 21:28:42 [...] in conditions and diseases of the eye (it consulting director). The exam may include: ?Putting eye drops [...] As you age, the vitreous shrinks, and thefibers that attach the vitreous to the retina can break free, causing vitreous detachment. In most cases, vitreous detachment does not cause symptoms and does not require treatment. The mostcommon symptom that can occur is seeing floaters that appear as tiny dots, webs, or threads in yourvision. Vitreous detachment can sometimes cause the retina [...] provider. Document Revised: 09/04/2021 Document Reviewed: 09/04/2021 [email or web address] Patient Education 2023 [email or web address]. Follow Up Care 12/28/2023 20:24:16 With:Georgiana Justice Address: [facility] [address] [place] [address]- Business (1) When:12/29/2023 21:28:05 Comments:Please call first in the morning for same-day appointment With:RANDY CALLE Address: [address] [place] [address] Business (1) When:Within 3 Day(s) [facility] 10-28-2024 NoteED Patient Education Note Ophthalmology Vitreous Detachment Vitreous [...] in conditions and diseases of the eye (it consulting director). The exam may include: ? Putting eye [...] eyeballs. As you age, the vitreous shrinks, andthe fibers that attach the vitreous to the [...] You may also develop a curtain that blockspart of your vision. Retinal detachment must be treated right away to prevent vision loss. This information is not intended to replace advice given to you by your health care provider. Make sure you discuss any questions you have with your health care provider. Document Revised: 09/04/2021 Document Reviewed: 09/04/2021 incuBET Patient Education ? 2023 [email or web address] 12-28-2023 Evaluation + Plan noteExtracted from: Title:ED Note Author:Clifford Rusty GALLEGOS. Date :12/28/23 Posterior vitreous detachmen t (H43.819: Vitreous degeneration, unspecified eye) [facility] 10-21-2024 History of Present illness Narrative* AMEENA Kennedy - 12/21/2023 1:30 PM EDT [facility] [address] Office Jhon Rosado MD, PhD Marisela Cuevas, ROBER-ESPERANZA Smallwood PA-C Plastic Surgery Progress Note Reason for visit : Routine post operative appointment. History of present illness: Ike Flannery is a 53 y.o. female who presents for postoperativevisit. Patient underwent bilateral skin sparing mastectomies and right axillary node dissection (Dr. He) with immediate bilateral breast reconstruction with placement of tissue expanders and right prophylactic lymphovenous bypass on 10/29/23. Patient unfortunately developed an infection of her left tissue battery parts assembler and went underwent I&D of left breast was removal of tissue battery parts assembler 11/27/2023. Shepresents to the office today for tissue battery parts assembler filled. She reports that she meets with [...] Recommendations: Patient is doing well postoperatively. Tissue battery parts assembler filled performed in office today. Discussed with patient she can use wgza-ehx-wmntmzp acetaminophen or ibuprofen for Any discomfort after tissue battery parts assembler filled. Continue with supportive bra. Okay to [...] to ensure the accuracy of this automated ball mill operator, some errors in ball mill operator may have occurred. AMEENA Kennedy 12/21/23 1500 documented in this encounterJoint Township District Memorial HospitalLibrestream Technologies Inc.10-16-2024 Miscellaneous Notes* Telephone Encounter - Deborah Wills CMA - 12/16/2023 11:25 AM EDT Patient will call us back to schedule a hospital follow up [facility] Telephone encounter Note* Telephone Encounter - Deborah Wills CMA - 12/16/2023 11:25 AM EDT Patient will call us back to schedule a hospital follow up [facility] History of Present illness Narrative* AMEENA Kennedy - 12/14/2023 3:30 PM EDT [facility] [address] Office Jhon Rosado MD, PhD AMEENA Kennedy PA-C Plastic Surgery Progress Note Reason for visit : Routine post operative appointment. History of present illness: Ike Flannery 53 y.o. is here today for a follow up after bilateral skin sparing mastectomies and right axillary node dissection (Dr. He) with immediate bilateral breast reconstruction with placement of tissue expanders and right prophylactic lymphovenous bypass on 10/29/23. Patient unfortunately developed an infection of her left tissue battery parts assembler and went underwent I&D of left breast was removal of tissue battery parts assembler 11/27/2023. Patient did have positive cultures. She continues to follow with Infectious Disease. She presents to office today for right breast tissue battery parts assembler filled. She states overall she is doing [...] complexes are surgically absent. Right breast tissue battery parts assembler in place. Procedure note : Tissue battery parts assembler fill port, was identified using magnet. This area was cleansed with alcohol, and Betadine. Then using a 25 gauge needle, approximately 200ml normal saline was injected into right tissue battery parts assembler(s). Patient tolerated well. Adequate hemostasis was achieved, [...] continue to expand her right breast tissue battery parts assembler until she is at a size she is happy with. We would like this to be completed prior to starting radiation therapy. She does have an appointment scheduled to meet with Radiation Oncology at the end of the month. Continue with IV antibiotics per Infectious disease's recommendations. Continue to refrain from any heavy lifting, pushing or pulling. Follow up next week for tissue battery parts assembler filled. She was advised to call the office any questions orconcerns in the interim. - AMEENA Rand 12/14/23 3:57 PM Please note that portions of this note were generated using voice recognition M*Modal dictation software. Although every effort was made to ensure the accuracy of this automated ball mill operator, some errors in ball mill operator may have occurred. AMEENA Kennedy 12/14/23 1557 documented in this encounterJoint Township District Memorial HospitalVuga Music Associates [facility] Borgess [id number] History of Present illness Narrative* TATI Gordon - 12/14/2023 2:00 PM EDT POSTOPERATIVE VISIT DIAGNOSIS: Right IDC grade 3, ER 75, AR-, Gsy-7-rmtwnado (IHC score 1+), 1.8 cm, 6/12 nodes+ STAGE: ypT1c N2a DATE OF DIAGNOSIS: 04/10/2023 OPERATION PERFORMED: Right skin sparing mastectomy, right axillary lymph node dissection, left risk-reducing skin sparing mastectomy, right lymphovenous bypass and bilateral tissue expanders (10/29/2023); s/p I&D left breast w removal of tissue battery parts assembler d/t infection (11/27/2023). GENETIC TESTING: No mutations MED ONC: Dr. Luis Hope RAD ONC: Referred PLASTICS: Dr. Jhon Rosado PATHOLOGY: The following pathology was reviewed and discussed with the patient. [facility] [address] [place] [address] Surgical Pathology Consultation Patient Name:IKE FLANNERY:1970 (Age: 53)Gender:FTaken:4Reported:4Physician(s):Christy He MD ([phone])Copy To:Jhon Rosado, [facility] Medical Centeression #:[id number]. Rec. #:[id number]: #[id number] Final Pathologic Diagnosis 1. Left breast, mastectomy: [...] All external controls reacted appropriately. HISTORY: Ike Flannery is a 53 y.o. female who presents [...] IMPRESSION: -Right IDC grade 3, ER 75, AR-, Txz-8-glegcrrv (IHC score 1+); s/p right skin sparing mastectomy, right axillary lymph node dissection, left risk-reducing skin sparing mastectomy, right lymphovenous bypass and bilateral tissue expanders (10/29/2023); 1.8 cm, 6/12 nodes+; s/p I&D left breast w removal of tissue battery parts assembler d/t infection (11/27/2023 PLAN: Discussed pathology report [...] to her next visit. Francisca Mason PA-C [facility] [phone] (phone) TATI Gordon 12/16/23 1229 documented in this encounterRiverside [facility] Hospital10-11-2024 NoteSubjective Patient ID: iTa Eason Widman is a 53 y.o. female. 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 The tissue battery parts assembler was removed on 26 November. A specific question would be when is she able to receive radiation therapy as part of her breast cancer treatment. 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 ER negative (weakly positive) AR negative HER2 negative. She received neoadjuvant chemotherapy with carboplatin and paclitaxel and Keytruda. She underwent double mastectomy in October 2023. Had a follow-up visit on 24 November, she had fluid aspiration from her left breast. This was smear positive for acid-fast bacilli; subsequent cultures grew Mycobacterium abscessus. The tissue battery parts assembler was removed on 26 November. She appears [...] home antibiotic therapy. She was referred to [facility] infectious disease with a planned visit in mid December; we accommodated an earlier visit. She says that she takes trazodone intermittently for sleep. She does not take it regularly. She last took it last night. 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 Review [...] Exam Vitals reviewed. Exam conducted with a senior clinical research scientist present. Constitutional: Appearance: Normal appearance. HENT: Head: [...] calor, no dolor, no tumor, no drainage. Etcher Apprentice Photoengraving present No nipples Abdominal: General: Abdomen is [...] left breast aspirate- M. Abscessus; sent to [facility] on 04 Dec 2023 for susceptiblity. 1. [...] Mycobacterium abscessus infection related to breast tissue battery parts assembler which has been removed. Cultures were positive from 24 November. Breast battery parts assembler was removed on 26 November. She appears to have been started on agents active against Mycobacterium abscessus on 04 December. She has specimens that have been sent to [facility] on the first week of November susceptibilities are pending. She has no signs or symptoms of systemic infection and her chest demonstrates no drainage or fluctuance. Assessment/Plan 53 y.o. female We will continue (more content not included)...[facility]10-11[facility] Miscellaneous Notes* Telephone Encounter - Ana Ibrahim [...] AM EDT Mailbox full documented in this encounterRiverside [facility] Hospital10-11-2024 Telephone encounter Note* Telephone Encounter - Ana Ibrahim - 12/11/2023 10:24 AM EDT Needs TCM before 12/21 [facility]10-[facility] Telephone encounter Note* Telephone Encounter - Ana Ibrahim - 12/11/2023 10:24 AM EDT Mailbox full [facility] Telephone encounter Note* Telephone Encounter - Ana Ibrahim - 12/11/2023 10:24 AM EDT he has upcoming appts with at least 3 specialties that is a lot with what she is going through. If she needs anything from me let me know- she could do telehealth too. - richie [facility]10-11-2024 Telephone encounter Note* Telephone Encounter - Ana Ibrahim - 12/11/2023 10:24 AM EDT Mailbox full [facility]10-11-2024 Miscellaneous Notes* Telephone Encounter - Mela Berrios RN - 12/11/2023 9:15 AM EDT Transition of Care (*required) *Additional Questions/Concerns Requiring PCP Follow-Up: For TCM, patient would need appt on/before 12/22/23 This documentation is being used for Transition of Care purposes: Yes Goal: Patient will demonstrate a safe transition from hospital to home Diagnosis on Discharge: Postop infection of left breast tissue battery parts assembler-culture with mycobacterium abscessus New rash Acute kidney injury History of breast cancer S/p bilateral mastectomies S/p bilateral breast reconstruction October 28, 2023 Discharge Specialty: Hem/Onc, Infectious Disease, and Nephrology *Name of Discharging Facility: [facility] Date of Facility Discharge: Admitted; 12/02/23 Discharged: 12/09/23 Date of Interactive Contact and Name of Medical Radiation Dosimetrist: 12/11/23 Patient: Ike Flannery *Medication Review Completed: Yes START taking: ciprofloxacin [...] Providers: Primary: RICHIE HANNA APRN-ESPERANZA Specialty: ID ([facility]): 12/11/23 Specialty: Surgical Oncology (TATI Mason): [...] Called patient mailbox full documented in this encounterRiverside [facility] Hospital10-11-2024 Telephone encounter Note* Telephone Encounter - Mela Berrios RN - 12/11/2023 9:15 AM EDT Transition of Care (*required) *Additional Questions/Concerns Requiring PCP Follow-Up: For TCM, patient would need appt on/before 12/22/23 This documentation is being used for Transition of Care purposes: Yes Goal: Patient will demonstrate a safe transition from hospital to home Diagnosis on Discharge: Postop infection of left breast tissue battery parts assembler-culture with mycobacterium abscessus New rash Acute kidney injury History of breast cancer S/p bilateral mastectomies S/p bilateral breast reconstruction October 28, 2023 Discharge Specialty: Hem/Onc, Infectious Disease, and Nephrology *Name of Discharging Facility: [facility] Date of Facility Discharge: Admitted; 12/02/23 Discharged: 12/09/23 Date of Interactive Contact and Name of Medical Radiation Dosimetrist: 12/11/23 Patient: Ike Flannery *Medication Review Completed: Yes START taking: ciprofloxacin [...] Providers: Primary: RICHIE HANNA APRN-ESPERANZA Specialty: ID ([facility]): 12/11/23 Specialty: Surgical Oncology (TATI Mason): 12/14/23 Specialty: Nephrology (Praveen): TBGrey Review of Pending Lab/Diagnostic Tests and Plan [...] Utilized/Needed by the Patient: [employer] infusion services [facility]10-11-[facility] Telephone encounter Note* Telephone Encounter - Ana Ibrahim - 12/11/2023 9:15 AM EDT Called patient mailbox full [facility]10-09-2024 History of Present illness Narrative* Og Morton [...] BMP in 1 week and follow-up withMD /ADVERTISING SALES CONSULTANT in renal clinic in 1 months time. [...] seroma status post removal of left breast battery parts assembler on November 27, 2023 Hypertension Edema Depression/anxiety [...] 2045 12/08/23 1303 12/08/23 0514 12/07/23 0450 SODIUM mmol/L [...] 7 days Lab Units 12/09/23 0511 12/08/23 0514 12/07/23 0450 WBC X10E9/L 4.3 2.9* 2.7* HEMOGLOBIN g/dL 7.4* 8.1* 7.8* HEMATOCRIT % 22.0* 23.1* 22.3* PLATELETS X10E9/L 153 147* 150 Results from last 7 days Lab Units 12/09/23 0511 12/08/23 1303 12/08/23 0514 MAGNESIUM mg/dL 1.8 2.5 1.5* Lab Results Component Value Date CALCIUM 8.7 12/09/2023 Lab Results Component Value Date IRON <10 (L) 12/04/2023 TIBC 272 12/04/2023 FERRITIN 8 (L) 01/31/2022 Please contact me at [phone] (Office) or [phone] (Answering service) with any questions. Please feel free to contact me through [employer] chat during the daytime hours, if no response after 5 minutes then call the answering service. Og Morton MD [facility] This note was created with the assistance of a speech-recognition program. Although the intention is to generate a document that actually reflects the content of the visit, no guarantees can be provided that every mistake has been identified and corrected by editing. * Carlene Noguera MD - 12/09/2023 1:41 PM EDT [facility] - Daily Progress Note Ike Flannery Admission date/time 12/02/2023 9:55 PM Today's Date and Time: 12/09/2023, 1:42 PM Impression : Postop infection of left breast tissue battery parts assembler-culture with mycobacterium abscessus New rash Acute kidney [...] January 14 tentatively Ambulatory referral placed for [facility] ID Dr. Lui for senior living management -has appointment January 13 WBC, platelets, creatinine, LFTs weekly while on antibiotics Prescription for imipenem provided to mission planner Follow-up CBC renal function WBC 4.3, [...] 60 min Stress: Stress Concern Present (02/27/2022) [place] [employer] - Occupational Stress Questionnaire Feeling of Stress : To some extent Social Connections: Socially Integrated (02/27/2022) Social Connection and Isolation Panel [NHANES] Frequency of Communication with Friends and Family: Twice a week Frequency of Social Gatherings with Friends and Family: Three times a week Attends Sabianism Services: More than 4 times per year [...] 7 days Lab Units 12/09/23 0511 12/08/23 0514 12/07/23 0450 WBC X10E9/L 4.3 2.9* [...] 7 days Lab Units 12/09/23 0511 12/08/23 0514 12/07/23 0450 ALK PHOS U/L 66 64 56 ALT U/L 30 18 13 AST U/L 39 28 22 Lab Results Component Value Date CRP 2.6 (H) 11/26/2023 Lab Results Component Value Date SEDRATE 30 11/26/2023 Cultures: Microbiology Results Procedure Component Value Units Date/Time Resp Pathogens Panel/SARS CoV-2 [[id number]] Collected: 12/05/23 1158 Specimen: Nasopharynx Updated: 12/05/23 [...] COV 2 Not Detected Blood culture #2 [[id number]] Collected: 12/05/23 1040 Specimen: Blood Updated: 12/08/23 1508 Culture NO GROWTH 3 DAYS Blood culture #1 [[id number]] Collected: 12/05/23 1031 Specimen: Blood Updated: 12/08/23 1507 Culture NO GROWTH 3 DAYS Urine culture [[id number]] Collected: 12/02/23 2305 Specimen: Urine, Clean Catch Midstream Updated: 12/04/23 0709 Culture NO GROWTH AT <1000 CFU/mL Blood culture [[id number]] Collected: 12/02/23 2231 Specimen: Blood, Line Draw Updated: 12/08/23 0817 Specimen Notes SUBOPTIMAL VOLUME OF BLOOD COLLECTED, RESULTS MAY BE AFFECTED. Culture NO GROWTH 5 DAYS Blood culture [[id number]] Collected: 12/02/23 2213 Specimen: Blood, Line Draw [...] Please call with questions. Gino Munguia APRN, [facility] [phone] This note was completed using a voice ball mill operator system. Every effort was made to ensure accuracy. However, inadvertent computerized ball mill operator errors may be present. Gino Munguia APRN-[facility] 12/09/23 1346 Carlene Landon MD, personally performed irek-vw-ntxt diagnostic evaluation on this patient I reviewed and performed all the ross component of the patient visit I reviewed CELINA history, exam and MDM - Carlene Noguera MD 12/09/23 2:08 PM * Amy Jack MD - 12/08/2023 5:15 PM EDT Images from the original note were not included. [facility] - 7 ONCOLOGY/STROKE [address] [place] [id number] Hospital Medicine Progress Note Patient: Ike Flannery Date of : 1970 Room: Formerly named [facility] PCP: RICHIE HANNA APRN-ESPERANZA Admission date: 12/02/2023 9:55 PM Encounter date: [...] and was sent by infectious disease tonight No fever overnight patient's rash improved after [...] tenderness or frontal sinus tenderness. Mouth/Throat: Lips: [place]. Mouth: Mucous membranes are moist. Pharynx: Oropharynx [...] Q12H RADHA Infusions: As Needed: acetaminophen albuterol utqwadv-ktbvrwmyexldb-wqmzwxlz calcium gluconate calcium gluconate calcium gluconate cyclobenzaprine [...] LIST Principal Problem: MIRNA (acute kidney injury) ([facility]) Active Problems: Hypertension Malignant neoplasm of lower-inner quadrant of right breast of female, estrogen receptor positive ([facility]) Cellulitis of left breast Infection of deep [...] and plastic surgery following, referral sent to [facility] ID -continue cipro and clarithromycin, imipenem -benadryl PRN -follow cultures -Continue eliquis -Hold lisinopril, lasix and spironolactone until MIRNA improves -replace B12 -replace and monitor electrolytes per protocol and scale Amy Jack MD * Gino Munguia APRN-YOGHURT MAKER - 12/08/2023 5:13 PM EDT [facility] - Daily Progress Note Ike Flannery Admission date/time 12/02/2023 9:55 PM Today's Date and Time: 12/08/2023, 5:14 PM Impression : Postop infection of left breast tissue battery parts assembler-culture with mycobacterium abscessus New rash Acute kidney injury History of breast cancer S/p bilateral mastectomies S/p bilateral breast reconstruction October 28, 2023 History of DVT-on Eliquis Presence of Port-A-Cath Recommendations: Breast surgical cultures with Mycobacterium abscessus Repeat blood cultures preliminarily with no growth at 3 days Continue Cipro and clarithromycin Continue imipenem Patient developed rash after tigecycline infusion-discontinued yesterday Ambulatory referral placed for [facility] ID Dr. Lui for senior living management If patient remains afebrile, we will [...] 60 min Stress: Stress Concern Present (02/27/2022) [place] [employer] - Occupational Stress Questionnaire Feeling of Stress : To some extent Social Connections: Socially Integrated (02/27/2022) Social Connection and Isolation Panel [NHANES] Frequency of Communication with Friends and Family: Twice a week Frequency of Social Gatherings with Friends and Family: Three times a week Attends Sabianism Services: More than 4 times per year [...] Value Units Date/Time Resp Pathogens Panel/SARS CoV-2 [[id number]] Collected: 12/05/23 1158 Specimen: Nasopharynx Updated: 12/05/23 [...] COV 2 Not Detected Blood culture #2 [[id number]] Collected: 12/05/23 1040 Specimen: Blood Updated: 12/08/23 1508 Culture NO GROWTH 3 DAYS Blood culture #1 [[id number]] Collected: 12/05/23 1031 Specimen: Blood Updated: 12/08/23 1507 Culture NO GROWTH 3 DAYS Urine culture [[id number]] Collected: 12/02/23 2305 Specimen: Urine, Clean Catch Midstream Updated: 12/04/23 0709 Culture NO GROWTH AT <1000 CFU/mL Blood culture [[id number]] Collected: 12/02/23 2231 Specimen: Blood, Line Draw Updated: 12/08/23 0817 Specimen Notes SUBOPTIMAL VOLUME OF BLOOD COLLECTED, RESULTS MAY BE AFFECTED. Culture NO GROWTH 5 DAYS Blood culture [[id number]] Collected: 12/02/23 2213 Specimen: Blood, Line Draw [...] Please call with questions. Gino Munguia APRN, [facility] [phone] This note was completed using a voice ball mill operator system. Every effort was made to ensure accuracy. However, inadvertent computerized ball mill operator errors may be present. AMEENA Vallejo 12/08/23 9323 * Shereen Smallwood PA-C - 12/08/2023 3:46 PM EDT [facility]ive [facility] [address] [place] [address] Office Jhon Rosado MD, PhD Marisela Cuevas, LINE DRIVER-YOGHURT MAKER Shereen Smallwood PA-C Plastic Surgery Inpatient Progress [...] Value Units Date/Time Resp Pathogens Panel/SARS CoV-2 [[id number]] Collected: 12/05/23 1158 Specimen: Nasopharynx Updated: 12/05/23 [...] COV 2 Not Detected Blood culture #2 [[id number]] Collected: 12/05/23 1040 Specimen: Blood Updated: 12/08/23 1508 Culture NO GROWTH 3 DAYS Blood culture #1 [[id number]] Collected: 12/05/23 1031 Specimen: Blood Updated: 12/08/23 1507 Culture NO GROWTH 3 DAYS Urine culture [[id number]] Collected: 12/02/23 2305 Specimen: Urine, Clean Catch Midstream Updated: 12/04/23 0709 Culture NO GROWTH AT <1000 CFU/mL Blood culture [[id number]] Collected: 12/02/23 2231 Specimen: Blood, Line Draw Updated: 12/08/23 0817 Specimen Notes SUBOPTIMAL VOLUME OF BLOOD COLLECTED, RESULTS MAY BE AFFECTED. Culture NO GROWTH 5 DAYS Blood culture [[id number]] Collected: 12/02/23 2213 Specimen: Blood, Line Draw Updated: 12/08/23 0813 Specimen Notes SUBOPTIMAL VOLUME OF BLOOD COLLECTED, RESULTS MAY BE AFFECTED. Culture NO GROWTH 5 DAYS Assessment: Ike Flannery is a 53 y.o. female Post-Operative Day: 11 s/p removal of left breast tissue battery parts assembler with I&D. Plan: - Pain well controlled with Tylenol, oxycodone, Toradol, - Tolerating a regular diet - Optimize nutrition with protein supplementation at every meal - Repeat blood cultures are negative at 3 days - Continue Eliquis 5mg BID for DVT prophylaxis - Mycobacterium abscesses: Appreciate Infectious Disease antibiotic management guidance: Cipro, Biaxin, Primaxin -infectious disease sent referral for [facility] for follow-up - MIRNA: Improving - Colace/Senna/MiraLAX for bowel regimen All questions were answered to her satisfaction. She was counseled regarding my impressions, instructions for management and the importance of compliance with treatment. INÉS PAYNE MD, PhD [facility] Shereen Smallwood PA-C 12/08/23 1554 * Og Morton MD - 12/08/2023 2:47 [...] BMP in 1 week and follow-up withMD /ADVERTISING SALES CONSULTANT in renal clinic in 1 months time. [...] seroma status post removal of left breast battery parts assembler on November 27, 2023 Hypertension Edema Depression/anxiety [...] ringer's, 100 mL/hr, Last Rate: 100 mL/hr (12/08/23617) Laboratory Studies Results from last 7 days Lab Units 12/08/23 1303 12/08/23 0514 12/07/230 12/06/23210912/06/23 0435 SODIUM mmol/L -- 136 138 -- [...] last 7 days Lab Units 12/08/23 0514 12/07/2344912/06/23 0435 WBC X10E9/L 2.9* 2.7* 3.0* HEMOGLOBIN g/dL 8.1* 7.8* 7.8* HEMATOCRIT % 23.1* 22.3* 23.0* PLATELETS X10E9/L 147* 150 172 Results from last 7 days Lab Units 12/08/23 1303 12/08/23 0514 12/07/23 045 MAGNESIUM mg/dL 2.5 1.5* 2.0 Lab Results Component Value Date CALCIUM 8.7 12/08/2023 Lab Results Component Value Date IRON <10 (L) 12/04/2023 TIBC 272 12/04/2023 FERRITIN 8 (L) 01/31/2022 Please contact me at [phone] (Office) or [phone] (Answering service) with any questions. Please feel free to contact me through [employer] Secure chat during the daytime hours, if no response after 5 minutes then call the answering service. Og Morton MD [facility] This note was created with the assistance of a speech-recognition program. Although the intention is to generate a document that actually reflects the content of the visit, no guarantees can be provided that every mistake has been identified and corrected by editing. * mAy Jack MD - 12/07/2023 7:02 PM EDT Images from the original note were not included. [facility] INTERNAL MEDICINE [facility] - ONCOLOGY/STROKE [address] [place] [address] Hospital Medicine Progress Note Patient: Ike Flannery Date of : 1970 Room: Formerly named [facility] PCP: AMEENA GARCIA Admission date: 12/02/2023 9:55 PM Encounter date: [...] chills and was sent by infectious disease [facility] At midnight showed a temperature of 102.6 [...] tenderness or frontal sinus tenderness. Mouth/Throat: Lips: [place]. Mouth: Mucous membranes are moist. Pharynx: Oropharynx [...] ringer's, 100 mL/hr As Needed: acetaminophen albuterol bzpezhu-rdrjpoavnbwcx-wmvfrqnv calcium gluconate calcium gluconate calcium gluconate cyclobenzaprine [...] LIST Principal Problem: MIRNA (acute kidney injury) ([facility]) Active Problems: Hypertension Malignant neoplasm of lower-inner quadrant of right breast of female, estrogen receptor positive ([facility]) Cellulitis of left breast Infection of deep [...] seroma status post removal of left breast battery parts assembler on November 27, 2023 Hypertension Edema Depression/anxiety [...] 129/79 138/78 142/76 Pulse: 80 89 Resp: Temp: 36.9 C (98.4 F) 36.9 C [...] 8 (L) 01/31/2022 Please contact me at [phone] (Office) or [phone] (Answering service) with any questions. Please feel free to contact me through [employer] chat during the daytime hours, if no response after 5 minutes then call the answering service. Og Morton MD [facility] This note was created with the assistance of a speech-recognition program. Although the intention is to generate a document that actually reflects the content of the visit, no guarantees can be provided that every mistake has been identified and corrected by editing. * Carlene Noguera MD - 12/07/2023 11:10 AM EDT [facility] - Daily Progress Note Ike Flannery Admission date/time 12/02/2023 9:55 PM Today's Date and Time: 12/07/2023, 11:10 AM Impression : Postop infection of left breast tissue battery parts assembler-culture with mycobacterium abscessus New rash Acute kidney [...] 60 min Stress: Stress Concern Present (02/27/2022) [place] [employer] - Occupational Stress Questionnaire Feeling of Stress : To some extent Social Connections: Socially Integrated (02/27/2022) Social Connection and Isolation Panel [NHANES] Frequency of Communication with Friends and Family: Twice a week Frequency of Social Gatherings with Friends and Family: Three times a week Attends Sabianism Services: More than 4 times per year [...] from last 7 days Lab Units 12/07/23 04512/06/23 0435 12/05/23 0545 ALK PHOS U/L 56 55 58 ALT U/L 13 9 9 AST U/L 22 16 15 Lab Results Component Value Date CRP 2.6 (H) 11/26/2023 Lab Results Component Value Date SEDRATE 30 11/26/2023 Cultures: Microbiology Results Procedure Component Value Units Date/Time Resp Pathogens Panel/SARS CoV-2 [[id number]] Collected: 12/05/23 1158 Specimen: Nasopharynx Updated: 12/05/23 [...] COV 2 Not Detected Blood culture #2 [[id number]] Collected: 12/05/23 1040 Specimen: Blood Updated: 12/06/23 1508 Culture NO GROWTH 1 DAY Blood culture #1 [[id number]] Collected: 12/05/23 1031 Specimen: Blood Updated: 12/06/23 1507 Culture NO GROWTH 1 DAY Urine culture [[id number]] Collected: 12/02/23 2305 Specimen: Urine, Clean Catch Midstream Updated: 12/04/23 0709 Culture NO GROWTH AT <1000 CFU/mL Blood culture [[id number]] Collected: 12/02/23 2231 Specimen: Blood, Line Draw Updated: 12/07/23 0815 Specimen Notes SUBOPTIMAL VOLUME OF BLOOD COLLECTED, RESULTS MAY BE AFFECTED. Culture NO GROWTH 4 DAYS Blood culture [[id number]] Collected: 12/02/23 2213 Specimen: Blood, Line Draw Updated: 12/07/23814 Specimen Notes SUBOPTIMAL VOLUME OF BLOOD COLLECTED, [...] Please call with questions. Gino Munguia APRN, YOGHURT MAKER [phone] This note was completed using a voice ball mill operator system. Every effort was made to ensure accuracy. However, inadvertent computerized ball mill operator errors may be present. Gino Munguia APRN-ESPERANZA 12/07/23 1113 ICarlene MD, personally performed vgqv-ie-jalw diagnostic evaluation on this patient I reviewed and performed all the ross component of the patient visit I reviewed CELINA history, exam and MDM - Carlene Noguera MD 12/07/23 12:53 PM * Nikki Rand [facility] - 12/07/2023 9:28 AM EDT [facility] Department of Pharmacy Pharmacist to Physician Communication The dose of ciprofloxacin for SSTI has been changed to 500 mg every 12 hours per the [facility] approved renal dosing guidelines, based on an estimated creatinine clearance is 35.1 mL/min (A) (by C-G formula based on SCr of 2.07 mg/dL (H)). Thank you, Nikki Rand RP * Shereen Smallwood PA-C - 12/07/2023 8:13 AM EDT Images from the original note were not included. [facility] Plastic & Reconstructive Surgery [facility] [address] [place] [address] Office Jhon Rosado MD, PhD Marisela Cuevas, LINE DRIVER-YOGHURT MAKER Shereen Smallwood PA-C Plastic Surgery Inpatient Progress [...] Value Units Date/Time Resp Pathogens Panel/SARS CoV-2 [[id number]] Collected: 12/05/23 1158 Specimen: Nasopharynx Updated: 12/05/23 [...] COV 2 Not Detected Blood culture #2 [[id number]] Collected: 12/05/23 1040 Specimen: Blood Updated: 12/07/23 1508 Culture NO GROWTH 2 DAYS Blood culture #1 [[id number]] Collected: 12/05/23 1031 Specimen: Blood Updated: 12/07/23 1507 Culture NO GROWTH 2 DAYS Urine culture [[id number]] Collected: 12/02/23 2305 Specimen: Urine, Clean Catch Midstream Updated: 12/04/23 0709 Culture NO GROWTH AT <1000 CFU/mL Blood culture [[id number]] Collected: 12/02/23 2231 Specimen: Blood, Line Draw Updated: 12/08/23 0817 Specimen Notes SUBOPTIMAL VOLUME OF BLOOD COLLECTED, RESULTS MAY BE AFFECTED. Culture NO GROWTH 5 DAYS Blood culture [[id number]] Collected: 12/02/232212 Specimen: Blood, Line Draw Updated: 12/08/23812 Specimen Notes SUBOPTIMAL VOLUME OF BLOOD COLLECTED, RESULTS MAY BE AFFECTED. Culture NO GROWTH 5 DAYS Assessment: Ike Flannery is a 53 y.o. female s/p I&D [...] compliance with treatment. INÉS PAYNE MD, PhD [facility] Plastic & Reconstructive Surgery ' Shereen Smallwood PA-C 12/08/23 1124 * Elayne Chow MD - 12/06/2023 10:03 AM EDT Images from the original note were not included. [facility] - 7 ONCOLOGY/STROKE [address] [facility] [address] Hospital Medicine Progress Note Patient: Ike Flannery Date of : 1970 Room: Formerly named [facility] PCP: RICHIE HANNA APRN-ESPERANZA Admission date: 12/02/2023 9:55 PM Encounter date: [...] tenderness or frontal sinus tenderness. Mouth/Throat: Lips: [place]. Mouth: Mucous membranes are moist. Pharynx: Oropharynx [...] mL/hr (12/05/23 0641) As Needed: acetaminophen albuterol ocmwuap-mqhvnotxesgoy-zsbvzpow calcium gluconate calcium gluconate calcium gluconate cyclobenzaprine [...] LIST Principal Problem: MIRNA (acute kidney injury) ([facility]) Active Problems: Hypertension Malignant neoplasm of lower-inner quadrant of right breast of female, estrogen receptor positive ([facility]) Cellulitis of left breast Infection of deep [...] increased Hold lisinopril, lasix and spironolactone until MINRA improves -continuous telemetry Normocytic normochromic anemia Iron-deficiency anemia -Borderline vitamin B12 give 1 x dose IM then oral daily supplements -HGB stable at 7.8, iron saturation 4% -IV Venofer Hypokalemia Hypomagnesemia -replace and monitor electrolytes per protocol and scale Liliane Valle APRN-YOGHURT MAKER 12/06/23 4280 Physician Attestation I personally performed a face [...] 6 -- 8 -- 9 BUN mg/dL 21 -- 19 -- 24* -- 25* -- 27* CREATININE [...] Lab Units 12/06/2343412/05/23 0545 12/04/23 0305 12/03/23 1737 12/03/23 1628 [...] Results from last 7 days Lab Units 12/06/2343412/05/2345 12/04/2330412/03/23 0350 12/02/23 2213 WBC X10E9/L 3.0* 3.9* 4.3 5.8 7.8 HEMOGLOBIN g/dL 7.8* 7.6* 7.3* 8.0* 9.1* HEMATOCRIT % 23.0* 22.2* 21.2* 22.9* 26.0* PLATELETS X10E9/L 172 195 201 233 279 Lab Results Component Value Date IRON <10 (L) 12/04/2023 TIBC 272 12/04/2023 FERRITIN 8 (L) 01/31/2022 IRONSAT <4 (L) 12/04/2023 Results from last 7 days Lab Units 12/06/2343412/05/2345 12/04/23 03012/03/23 0350 12/02/23 2213 GLUCOSE mg/dL 100* 95 [...] seroma 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 Although the intention is to generate a document that actually reflects the content of the visit, no guarantees can be provided that every mistake has been identified and corrected by editing. * Carlene Noguera MD - 12/05/2023 7:10 PM EDT [facility] - Daily Progress Note Ike Flannery Admission date/time 12/02/2023 9:55 PM Today's Date and Time: 12/05/2023, 7:10 PM Impression : Postop infection of left breast tissue battery parts assembler-culture growing acid-fast bacilli Acute kidney injury History [...] 60 min Stress: Stress Concern Present (02/27/2022) [place] [employer] - Occupational Stress Questionnaire Feeling of Stress : To some extent Social Connections: Socially Integrated (02/27/2022) Social Connection and Isolation Panel [NHANES] Frequency of Communication with Friends and Family: Twice a week Frequency of Social Gatherings with Friends and Family: Three times a week Attends Sabianism Services: More than 4 times per year [...] 144/78 Pulse: 85 81 84 96 Resp: 23 18 Temp: 37 C (98.6 F) 37.5 [...] Results from last 7 days Lab Units 12/05/2345 12/04/23 03012/03/23 0350 WBC X10E9/L 3.9* 4.3 5.8 HEMOGLOBIN [...] Value Units Date/Time Resp Pathogens Panel/SARS CoV-2 [[id number]] Collected: 12/05/23 1158 Specimen: Nasopharynx Updated: 12/05/23 [...] COV 2 Not Detected Blood culture #2 [[id number]] Resulted: 12/05/23 1041 Specimen: Blood, Peripheral Draw Updated: 12/05/23 1041 Blood culture #1 [[id number]] Resulted: 12/05/23 1032 Specimen: Blood, Peripheral Draw Updated: 12/05/23 1032 Urine culture [[id number]] Collected: 12/02/23 2305 Specimen: Urine, Clean Catch Midstream Updated: 12/04/23 0709 Culture NO GROWTH AT <1000 CFU/mL Blood culture [[id number]] Collected: 12/02/23 2231 Specimen: Blood, Line Draw Updated: 12/05/23 0815 Specimen Notes SUBOPTIMAL VOLUME OF BLOOD COLLECTED, RESULTS MAY BE AFFECTED. Culture NO GROWTH 2 DAYS Blood culture [[id number]] Collected: 12/02/23 2213 Specimen: Blood, Line Draw Updated: 12/05/23 0815 [...] This note was completed using a voice ball mill operator system. Every effort was made to ensure accuracy. However, inadvertent computerized ball mill operator errors may be present. * Dorothy Morales, [facility] - 12/05/2023 6:53 PM EDT Pharmacy Consult Reason for consult: Pharmacy to Dose imipenem and tigecycline History of Present illness: Ike Flannery is a 53 y.o. female who has been consulted for dosing imipenem and tigecycline for mycobacterial infection. Allergies: Meperidine, Daptomycin, and Adhesive Current medication regimen: Current Facility-Administered Medications Medication Dose Route Frequency Provider Last Rate Last Admin acetaminophen (TYLENOL EXTRA STRENGTH) tablet 500 mg 500 mg oral Q6H PRN Chris Hollis PA-C 500 mg at 12/05/23 0558 albuterol (PROVENTIL,VENTOLIN) nebulizer solution 2.5 mg 2.5 mg nebulization Q6H PRN Chris Hollis PA-C apixaban (ELIQUIS) tablet 5 mg 5 mg oral BID Chris Hollis PA-C 5 mg at 12/05/23 0904 bwjghsm-ayohiwhqklcfo-xcurmsvz (EXCEDRIN MIGRAINE) 250-250-65 mg per tablet 2 tablet 2 tablet oral Q6H PRN AMEENA Rae 2 tablet at 12/04/23 0809 calcium gluconate [...] Q12H RADHA Noguera MD 500 mg at 12/05/23 0904 [START ON 12/06/2023] cyanocobalamin tablet 1,000 mcg 1,000 mcg oral Daily AMEENA Rae cyclobenzaprine (FLEXERIL) tablet 10 mg 10 mg oral Nightly PRN Chris Hollis PA-C 10 mg at 12/04/23 2355 dextrose (GLUTOSE) 40 % gel 15 g 15 g oral PRN Chris Hollis PA-C dextrose 50 % in water (D50W) 50% solution 25 mL 25 mL intravenous PRN Chris Hollis PA-C hydrALAZINE (APRESOLINE) injection 10 mg 10 mg intravenous Q4H PRN Epifanio Henry MD 10 mg at 12/05/23 0558 imipenem-cilastatin (PRIMAXIN) 500 mg in sodium chloride 0.9 % 100 mL IVPB-MBP 500 mg intravenous Q12H Carlene Noguera MD iron sucrose (VENOFER) 200 mg in sodium chloride 0.9 % 100 mL IVPB 200 mg intravenous Daily Liliane Valle, LINE DRIVER-YOGHURT MAKER Stopped at 12/05/23 1248 labetaloL (NORMODYNE,TRANDATE) injection [...] mg/mL premix) 2,000 mg intravenous PRN Chris Hollis PA-C Stopped at 12/05/23 0842 metoprolol succinate XL (TOPROL XL) 24 hr tablet 100 mg 100 mg oral BID Epifanio Henry MD ondansetron (PF) (ZOFRAN) injection 4 mg 4 mg intravenous Q4H PRN Chris Hollis PA-C 4 mg at 12/03/23 0625 oxyCODONE (ROXICODONE) immediate release tablet 5 mg 5 mg oral Q4H PRN Chris Hollis PA-C potassium chloride (KLOR-CON M 20) CR [...] tablet 1 tablet oral Q12H PRN Chris Hollis PA-C sodium phosphate 20 mmol in sodium [...] 3 mL 3 mL intravenous PRN Chris Hollis PA-C 3 mL at 12/03/23 0637 sodium chloride 0.9 % flush 3 mL 3 mL intravenous Q12H RADHA Chris Hollis PA-C 3 mL at 12/05/23 0900 tigecycline [...] mg 50 mg oral Nightly PRN Chris Hollis PA-C Impression: Estimated Creatinine Clearance: 27.9 mL/min [...] from the original note were not included. [facility] INTER[facility]IC[facility] - 7 ONCOLOGY/STROKE [address] [place] [address] [facility] Medicine Progress Note Patient: Ike Flannery Date of : 1970 Room: [facility]/ PCP: AMEENA GARCIA Admission date: 12/02/2023 9:55 PM Encounter date: [...] tenderness or frontal sinus tenderness. Mouth/Throat: Lips: [place]. Mouth: Mucous membranes are moist. Pharynx: Oropharynx [...] mL/hr (12/05/23 0641) As Needed: acetaminophen albuterol irujfeu-wqyfeehsabopv-aclmtgtc calcium gluconate calcium gluconate calcium gluconate cyclobenzaprine [...] LIST Principal Problem: MIRNA (acute kidney injury) ([facility]) Active Problems: Hypertension Malignant neoplasm of lower-inner quadrant of right breast of female, estrogen receptor positive ([facility]) Cellulitis of left breast Infection of deep [...] Abx changes made per ID. Liliane Valle, ROBER-YOGHURT MAKER 12/05/23 1527 Physician Attestation I personally performed [...] Pulse: 77 85 85 Resp: 19 19 19 Temp: 37.1 C (98.7 F) [...] 1656 12/04/23 0305 12/03/23 1220 12/03/23 0350 12/02/23221211/30/23 0930 SODIUM mmol/L 139 -- 138 -- [...] Lab Units 12/05/23 0545 12/04/23 0305 12/03/23 1737 12/03/23 1628 12/03/2334912/02/23 23012/02/23 221 TOTAL PROTEIN g/dL 5.6* 5.4* -- 5.4* 5.5* -- 6.4 ALBUMIN g/dL 3.2 3.2 -- 3.1* 3.3 -- 3.8 AST U/L 15 15 -- -- 19 24 ALT U/L 9 9 -- -- 10 -- 12 TOTAL BILIRUBIN mg/dL 0.4 0.5 -- -- 0.6 -- 0.6 BILIRUBIN, URINE -- -- Negative -- -- Negative -- ALK PHOS U/L 58 56 -- -- 60 -- 69 Results from last 7 days Lab Units 12/05/23 0545 12/04/23 0305 12/03/23 0350 12/02/23221211/30/23 0930 WBC X10E9/L 3.9* 4.3 5.8 7.8 6.5 HEMOGLOBIN g/dL 7.6* 7.3* 8.0* 9.1* 8.8* HEMATOCRIT % 22.2* 21.2* 22.9* 26.0* 25.2* PLATELETS X10E9/L 195 201 233 279 294 Lab Results Component Value Date IRON <10 (L) 12/04/2023 TIBC 272 12/04/2023 FERRITIN 8 (L) 01/31/2022 IRONSAT <4 (L) 12/04/2023 Results from last 7 days Lab Units 12/05/23 0545 12/04/23 0305 12/03/23 0350 12/02/23 2213 11/30/23 0930 GLUCOSE mg/dL 95 91 103* 106* [...] 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 Although the intention is to generate a document that actually reflects the content of the visit, no guarantees can be provided that every mistake has been identified and corrected by editing. * Elayne Chow MD - 12/04/2023 3:39 PM EDT Images from the original note were not included. [facility] - ONCOLOGY/STROKE [address] [place] [address] Hospital Medicine Progress Note Patient: Ike Flannery Date of : 1970 Room: Formerly named [facility] PCP: RICHIE HANNA APRN-ESPERANZA Admission date: 12/02/2023 9:55 PM Encounter date: [...] chills and was sent by infectious disease [facility] Interval History: Status: improved. No overnight [...] tenderness or frontal sinus tenderness. Mouth/Throat: Lips: [place]. Mouth: Mucous membranes are moist. Pharynx: Oropharynx [...] mL/hr (12/04/23 1212) As Needed: acetaminophen albuterol dipgchm-wewxmduqgsepb-jljadxkl calcium gluconate calcium gluconate calcium gluconate cyclobenzaprine [...] Protein Urine Random 130 (H) <120 mg/L U/Pro/Prevention Rn Ratio Calc 0.30 (H) <0.2 Sodium, urine, [...] LIST Principal Problem: MIRNA (acute kidney injury) ([facility]) Active Problems: Hypertension Malignant neoplasm of lower-inner quadrant of right breast of female, estrogen receptor positive ([facility]) Cellulitis of left breast Infection of deep [...] and the plan . MD Liliane Madrid, LINE DRIVER-YOGHURT MAKER 12/04/23 1744 * Carlene Noguera MD - 12/04/2023 11:27 AM EDT Images from the original note were not included. 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-culture growing acid-fast bacilli Acute kidney injury History [...] 60 min Stress: Stress Concern Present (02/27/2022) [place] [employer] - Occupational Stress Questionnaire Feeling of Stress : To some extent Social Connections: Socially Integrated (02/27/2022) Social Connection and Isolation Panel [NHANES] Frequency of Communication with Friends and Family: Twice a week Frequency of Social Gatherings with Friends and Family: Three times a week Attends Sabianism Services: More than 4 times per year [...] Pulse: 90 78 75 Resp: 20 19 19 Temp: 37.7 C (99.9 F) 37.1 [...] days Lab Units 12/04/23 0305 12/03/23 0350 12/02/233 WBC X10E9/L 4.3 5.8 7.8 HEMOGLOBIN g/dL 7.3* 8.0* 9.1* HEMATOCRIT % 21.2* 22.9* 26.0* PLATELETS X10E9/L 201 233 279 Results from last 7 days Lab Units 12/04/23 0305 12/03/23 1220 12/03/23 0350 12/02/23 2213 POTASSIUM mmol/L 3.4* 3.6 3.1* 3.2* CHLORIDE mmol/L 107 -- 104 99 CO2 mmol/L 25 -- 25 25 BUN mg/dL 24* -- 25* 27* CREATININE mg/dL 2.81* -- 2.49* 2.52* EGFR (CKD-EPI)NON-RACE DEPENDENT ml/min/1.73sq.m 19* -- 23* 22* CALCIUM mg/dL 9.2 -- 9.2 9.8 MAGNESIUM mg/dL 1.9 2.2 1.5* -- Results from last 7 days Lab Units 12/04/23 0305 12/03/23 0350 12/02/23 2213 ALK PHOS U/L 56 60 69 ALT U/L 9 10 12 AST U/L 15 19 24 Lab Results Component Value Date CRP 2.6 (H) 11/26/2023 Lab Results Component Value Date SEDRATE 30 11/26/2023 Cultures: Microbiology Results Procedure Component Value Units Date/Time Urine culture [[id number]] Collected: 12/02/23 230 Specimen: Urine, Clean Catch Midstream Updated: 12/04/23 0709 Culture NO GROWTH AT <1000 CFU/mL Blood culture [[id number]] Collected: 12/02/23 2231 Specimen: Blood, Line Draw Updated: 12/04/23 0815 Specimen Notes SUBOPTIMAL VOLUME OF BLOOD COLLECTED, RESULTS MAY BE AFFECTED. Culture NO GROWTH 1 DAY Blood culture [[id number]] Collected: 12/02/23 2213 Specimen: Blood, Line Draw Updated: 12/04/23 0815 Specimen Notes SUBOPTIMAL VOLUME OF BLOOD COLLECTED, RESULTS MAY BE AFFECTED. Culture NO GROWTH 1 DAY Anaerobic culture [[id number]] Collected: 11/27/23 1548 Specimen: Body Fluid from Breast, Left Updated: 12/02/23 0851 Specimen Notes SPECIMEN A Culture NO GROWTH 5 DAYS Fungal culture includes fungal smear [[id number]] Collected: 11/27/23 1548 Specimen: Body Fluid from Breast, Left Updated: 11/28/23 0702 Specimen Notes SPECIMEN A Fungal smear -- NO FUNGAL ELEMENTS SEEN ON DIRECT SMEAR Culture PENDING AFB culture concentrated includes AFB smear [[id number]] (Abnormal) Collected: 11/27/23 1548 Specimen: Body Fluid from Breast, Left Updated: 12/01/23 1056 Specimen Notes SPECIMEN A AFB Smear NO ACID FAST BACILLI (CONCENTRATED SMEAR) Culture ACID FAST BACILLI ISOLATED Aspirate culture includes gram stain [[id number]] (Abnormal) Collected: 11/27/23 1548 Specimen: Aspirate Atr [...] This note was completed using a voice ball mill operator system. Every effort was made to ensure accuracy. However, inadvertent computerized ball mill operator errors may be present. * DAVID Tinajero [...] right breast of female, estrogen receptor positive ([facility]) S/P breast reconstruction, bilateral Cellulitis of left breast MIRNA (acute kidney injury) ([facility]) Past Medical History: Past Medical History: Diagnosis Date Breast cancer ([facility]) 2023 mammary carcinoma Deep vein thrombosis ([facility]) 09/18/2023 Left calf Hypertension Knee pain PONV (postoperative nausea and vomiting) Port-A-Cath in place 05/13/2023 Visual impairment Glasses Past Surgical History: Past Surgical History: Procedure Laterality Date ARTHROSCOPIC REPAIR ACL Right 2006 ARTHROSCOPIC REPAIR ACL Left 08/26/2021 BREAST BIOPSY Right 2023 mammary carcinoma EXCISION LYMPH NODE AXILLARY DISSECTION Right 10/28/2023 Performed by Christy He MD at [facility] HYSTERECTOMY IMMEDIATE BREAST RECONSTRUCTION WITH TISSUE COMPENSATION INTERN PLACEMENT Bilateral 10/28/2023 Performed by Jhon Rosado MD at [facility] INCISION DRAINAGE BREAST Left 11/27/2023 Performed by Jhon Rosado MD at [facility] MAGNETIC SEED LOCALIZATION EXCISION/BIOPSY MASS BREAST (MAG SEED LOCALIZED TARGETED DISSECTION FOR RETRIEVAL OF PREVIOUSLY CLIPPED LYMPH NODE) Right 10/28/2023 Performed by Christy He MD at [facility] MASTECTOMY BREAST SIMPLE RISK REDUCING SKIN SPARING Left 10/28/2023 Performed by Christy He MD at [facility] MASTECTOMY BREAST SIMPLE SKIN SPARING Right 10/28/2023 Performed by Christy He MD at [facility] MENISCECTOMY Bilateral 2022 PORTACATH PLACEMENT Left left chest REMOVAL COMPENSATION INTERN TISSUE BREAST Left 11/27/2023 Performed by Jhon Rosado MD at [facility] RIGHT AXILLARY PROPHYLACTIC BYPASS LYMPHOVENOUS Right 10/28/2023 Performed by Jhon Rosado MD at [facility] TONSILLECTOMY AND ADENOIDECTOMY Age 3 [...] from last 3 days Lab Units 12/04/23 0305 12/03/23 1628 12/03/23 1220 12/03/23 0350 12/02/23 2213 [...] from last 3 days Lab Units 12/04/23 0305 12/03/23 0350 12/02/23 2213 WBC X10E9/L 4.3 5.8 7.8 HEMOGLOBIN g/dL 7.3* 8.0* 9.1* HEMATOCRIT % 21.2* 22.9* 26.0* PLATELETS X10E9/L 201 233 279 MCV fL 90 90 90 Results from last 3 days Lab Units 12/04/23 0305 12/03/23 1220 12/03/23 0350 MAGNESIUM mg/dL 1.9 2.2 1.5* Results from last 3 days Lab Units 12/04/23 0305 PHOSPHORUS mg/dL 3.9 CALCIUM, IONIZED mg/dL 5.0 Results from last 3 days Lab Units 12/04/23 0305 12/03/23 1737 12/03/23 0350 TOTAL BILIRUBIN mg/dL 0.5 -- 0.6 BILIRUBIN, [...] VERYLOWLIP 16 01/31/2022 No results found for: [id number] No results found for: FOLATE No results [...] mg 500 mg oral Q6H PRN Chris Hollis PA-C 500 mg at 12/04/23 0313 albuterol (PROVENTIL,VENTOLIN) nebulizer solution 2.5 mg 2.5 mg nebulization Q6H PRN Chris Hollis PA-C apixaban (ELIQUIS) tablet 5 mg 5 mg oral BID Chris Hollis PA-C 5 mg at 12/04/23 0809 jmfdzsl-ijhsxcxmsduoy-vlrvbnzl (EXCEDRIN MIGRAINE) 250-250-65 mg per tablet 2 tablet 2 tablet oral Q6H PRN Liliane Valle APRN-YOGHURT MAKER 2 tablet at 12/04/23 0809 calcium gluconate 3,000 mg in sodium chloride 0.9 % 100 mL IVPB 3,000 mg intravenous PRN Epifanio Henry MD calcium gluconate 4,000 mg in sodium chloride 0.9 % 250 mL IVPB 4,000 mg intravenous PRN Epifanio Henry MD calcium gluconate IVPB 2000 mg/100 mL (20 mg/mL premix) 2,000 mg intravenous PRN Epifanio Hnery MD ciprofloxacin HCl (CIPRO) tablet 500 mg 500 mg oral Q24H RADHA Noguera MD 500 mg at 12/04/23 0809 clarithromycin (BIAXIN) tablet 500 mg 500 mg oral Q12H RADHA Noguera MD 500 mg at 12/04/23 0809 cyclobenzaprine (FLEXERIL) tablet 10 mg 10 mg oral Nightly PRN Chris Hollis PA-C 10 mg at 12/03/23 2326 dextrose (GLUTOSE) 40 % gel 15 g 15 g oral PRN Chris Hollis PA-C dextrose 50 % in water (D50W) 50% solution 25 mL 25 mL intravenous PRN Chris Hollis PA-C hydrALAZINE (APRESOLINE) injection 10 mg 10 [...] mg/mL premix) 2,000 mg intravenous PRN Chris Hollis PA-C Stopped at 12/03/23 0817 metoprolol succinate XL (TOPROL XL) 24 hr tablet 100 mg 100 mg oral Daily Epifanio Henry MD 100 mg at 12/04/23 0809 ondansetron (PF) (ZOFRAN) injection 4 mg 4 mg intravenous Q4H PRN Chris Hollis PA-C 4 mg at 12/03/23 0625 oxyCODONE (ROXICODONE) immediate release tablet 5 mg 5 mg oral Q4H PRN Chris Hollis PA-C potassium chloride (KLOR-CON M 20) CR tablet 20-60 mEq 20-60 mEq oral PRN Epifanio Henry MD 20 mEq at 12/04/23 0544 Or potassium chloride (KAYCIEL) 20 mEq/15 mL solution 20-60 mEq 20-60 mEq oral PRN Epifanio Henry MD sennosides-docusate sodium (SENOKOT-S) 8.6-50 mg 1 tablet 1 tablet oral Q12H PRN Chris Hollis PA-C sodium phosphate 20 mmol in sodium [...] 3 mL 3 mL intravenous PRN Chris Hollis PA-C 3 mL at 12/03/23 0637 sodium chloride 0.9 % flush 3 mL 3 mL intravenous Q12H RADHA Chris Hollis PA-C 3 mL at 12/04/23 0810 traZODone (DESYREL) tablet 50 mg 50 mg oral Nightly PRN Chris Hollis PA-C Nutrition Focused Physical Findings 12/03 Renal ultrasound is scheduled for today. No BM noted since admission - PRN bowel meds noted. Skin (per nursing flow sheets): Skin Color: [place]; Pale (12/04/23804) Skin Temp: Warm; Dry (12/04/23804) Skin Integrity: Intact (12/02/23 2335) Wound (per nursing flow sheets): Wound 11/27/23 Incision Breast Left-Site Assessment: Clean; Dry; Intact (12/04/23804) Wound 10/28/23 Incision Breast Right-Site Assessment: Clean; Dry; Intact (12/03/23 192) Gastrointestinal (per nursing flow sheets): Abdomen Assessment: Soft; Rounded; Nondistended (12/04/23804) RUQ Bowel Sounds: Present (12/04/23804) LUQ Bowel Sounds: Present (12/04/23804) RLQ Bowel Sounds: Present (12/04/23804) LLQ Bowel Sounds: Present (12/04/23804) GI Symptoms: Loss of appetite (12/04/23804) Relieved by: Antiemetic (12/03/23635) Edema (per nursing flow sheets): RLE Edema: [...] Diet Type: Regular Texture Other Modifiers: Cardiac 12/02/232315 Diet Intakes: Nothing recorded in Flowsheets. Nursing [...] Scale, 12/02) Usual Body Weight: see above [place] Body Weight: 70.4 kg Percent [place] Body Weight: 138% Weight Changes: Weight fluctuations noted. With weight loss of 18 lbs x 5 months, 8% Body Mass Index: Body mass index is 29.79 kg/m . BMI Category: Pre-obese (25.00- 29.99) Comparative Standards: Estimated Energy Needs: 1639-2963 kcals daily. Method and weight used: 25-30 kcal/kg IBW Estimated Protein Needs: 84-141 grams daily. Method and weight used: 1.2-2 g protein/kg IBW Estimated Fluid Needs: 0360-9335 ml daily. Method weight used: 25-30 ml/kg [...] trends, supplement acceptance, plan ofcare. 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 Although the intention is to generate a document that actually reflects the content of the visit, no guarantees can be provided that every mistake has been identified and corrected by editing. * Shereen Smallwood PA-C - 12/04/2023 8:59 AM EDT Images from the original note were not included. [facility] Plastic & Reconstructive Surgery [facility] [address] [place] [address] Office Jhon Rosado MD, PhD Marisela Cuevas, LINE DRIVER-YOGHURT MAKER Shereen Smallwood PA-C Plastic Surgery Inpatient Progress [...] Procedure Component Value Units Date/Time Urine culture [[id number]] Collected: 12/02/23 2305 Specimen: Urine, Clean Catch Midstream Updated: 12/04/23 0709 Culture NO GROWTH AT <1000 CFU/mL Blood culture [[id number]] Collected: 12/02/23 2231 Specimen: Blood, Line Draw Updated: 12/04/23 08 Specimen Notes SUBOPTIMAL VOLUME OF BLOOD COLLECTED, RESULTS MAY BE AFFECTED. Culture NO GROWTH 1 DAY Blood culture [[id number]] Collected: 12/02/23 2213 Specimen: Blood, Line Draw Updated: 12/04/2315 Specimen Notes SUBOPTIMAL VOLUME OF BLOOD COLLECTED, RESULTS MAY BE AFFECTED. Culture NO GROWTH 1 DAY Anaerobic culture [[id number]] Collected: 11/27/23 1548 Specimen: Body Fluid from Breast, Left Updated: 12/02/23 0851 Specimen Notes SPECIMEN A Culture NO GROWTH 5 DAYS Fungal culture includes fungal smear [[id number]] Collected: 11/27/23 1548 Specimen: Body Fluid from Breast, Left Updated: 11/28/23 0702 Specimen Notes SPECIMEN A Fungal smear -- NO FUNGAL ELEMENTS SEEN ON DIRECT SMEAR Culture PENDING AFB culture concentrated includes AFB smear [[id number]] (Abnormal) Collected: 11/27/23 1548 Specimen: Body Fluid from Breast, Left Updated: 12/01/23 1056 Specimen Notes SPECIMEN A AFB Smear NO ACID FAST BACILLI (CONCENTRATED SMEAR) Culture ACID FAST BACILLI ISOLATED Aspirate culture includes gram stain [[id number]] (Abnormal) Collected: 11/27/23 1548 Specimen: Aspirate Atr Updated: 12/01/23 1544 Specimen Notes SPECIMEN A Gram Stain Result >25 WHITE BLOOD CELLS/LPF 0 SQUAMOUS EPITHELIAL CELLS/LPF NO ORGANISMS SEEN Culture MODERATE ACID FAST BACILLI ISOLATED REPORT UPDATED GROWTH OBSERVED AT 48 HOURS Assessment: Ike Flannery is a 53 y.o. 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 Patient was initially referred to [facility] however this is out of network for her insurance, referrals were sent to [facility], [facility] and [facility]. [facility] is out of network, however [facility] could not get her in until December or January. Currently waiting to hear back from [facility]. - patient transitioned to oral clindamycin and [...] from the original note were not included. [facility] Plastic & Reconstructive Surgery [facility] [address] [place] [address] Office Jhon Rosado MD, PhD Marisela Cuevas, LINE DRIVER-YOGHURT MAKER Shereen Smallwood PA-C Plastic Surgery Inpatient Progress [...] Procedure Component Value Units Date/Time Urine culture [[id number]] Collected: 12/02/23 234 Specimen: Urine Updated: 12/03/23 0829 Blood culture [[id number]] Collected: 12/02/232235 Specimen: Blood, Peripheral Draw Updated: 12/02/232235 Blood culture [[id number]] Collected: 12/02/232235 Specimen: Blood, Peripheral Draw Updated: 12/02/232235 Anaerobic culture [[id number]] Collected: 11/27/23 1548 Specimen: Body Fluid from Breast, Left Updated: 12/02/23 0851 Specimen Notes SPECIMEN A Culture NO GROWTH 5 DAYS Fungal culture includes fungal smear [[id number]] Collected: 11/27/23 154 Specimen: Body Fluid from Breast, Left Updated: 11/28/23 0702 Specimen Notes SPECIMEN A Fungal smear -- NO FUNGAL ELEMENTS SEEN ON DIRECT SMEAR Culture PENDING AFB culture concentrated includes AFB smear [[id number]] (Abnormal) Collected: 11/27/23 154 Specimen: Body Fluid from Breast, Left Updated: 12/01/23 1056 Specimen Notes SPECIMEN A AFB Smear NO ACID FAST BACILLI (CONCENTRATED SMEAR) Culture ACID FAST BACILLI ISOLATED Aspirate culture includes gram stain [[id number]] (Abnormal) Collected: 11/27/23 154 Specimen: Aspirate Atr Updated: 12/01/23 1544 Specimen Notes SPECIMEN A Gram Stain Result >25 WHITE BLOOD CELLS/LPF 0 SQUAMOUS EPITHELIAL CELLS/LPF NO ORGANISMS SEEN Culture MODERATE ACID FAST BACILLI ISOLATED REPORT UPDATED GROWTH OBSERVED AT 48 HOURS Mrsa Pcr nasal swab [[id number]] Collected: 11/27/23 0020 Specimen: Nasal Updated: 11/27/23 0957 Mrsa PCR Negative Blood culture [[id number]] Collected: 11/26/23 1715 Specimen: Blood Updated: 12/01/232007 Culture NO GROWTH 5 DAYS Assessment: Ike Flannery is a 53 y.o. 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 - patient with positive id from her office aspirate as well as intraoperative cultures. Infectious Disease was reaching out for referral to [facility]. Patient lives in [place], wondering if [facility] would be an option. - infectious disease [...] Smallwood PA-C 12/04/23 0858 * Nathaniel Narvaez RPH - 12/02/2023 11:19 PM EDT Pharmacy was [...] serum creatinine please re-consult. [facility] Miscellaneous Notes* Telephone Encounter - Nabila Mora CMA - 12/09/2023 3:43 PM EDT IKE FLANNERY (Ross: [id number]) [employer] has not yet replied to your PA request. You may close this dialog, return to your dashboard, and perform other tasks. To check for an update later, open this request again from your dashboard. If [employer] has not replied to your request within 24 hours please contact [employer] at (TTY ) PA form to be scanned into chart. [facility] Telephone encounter Note* Telephone Encounter - Nabila Mora CMA - 12/09/2023 3:43 PM EDT IKE FLANNERY (Ross: [id number]) [employer] has not yet replied to your PA request. You may close this dialog, return to your dashboard, and perform other tasks. To check for an update later, open this request again from your dashboard. If [employer] has not replied to your request within 24 hours please contact [facility] [employer] at (TTY ) PA form to be scanned into chart. [facility]10-09-2024 Plan of care note* Plan of Care - Kahlil Gregorio RN - 12/09/2023 3:21 PM EDT Patient remains free of falls and injuries. Patient also continues to deny any pain. [facility]10-09-2024 Miscellaneous Notes* Plan of Care - Kahlil [...] be free from fall Description: Interventions: 1. Champion to environment 2. Hourly rounds addressing the [...] non-skid footwear 11. Teach patient and patient in store marketing representative to maintain environment for safety and engage in all aspects of fall prevention program Outcome: Progressing Note: Evaluation of progress towards goal: Pt remains free from falls. Will continue to provide a safe environment. Problem: Pain Goal: Patient goal is pain score less than 4, able to rest, and participant in treatment plan as appropriate Description: INTERVENTIONS: 1. Encourage patient or legal in store marketing representative to report early pain and ask [...] per policy 9. Teach patient or legal in store marketing representative interventions for comforting Outcome: Progressing Note: [...] at the bedside 7. Instruct patient/ patient in store marketing representative about use of safety devices 8. Include patient/ patient in store marketing representative in decisions related to safety Outcome: [...] hygiene technique 7. Identify and instruct patient/patient in store marketing representative in use of appropriate isolation precautionsfor identified infection/symptoms 8. Provide and discuss with patient/patient in store marketing representative on educational MDRO sheet 9. Encourage and monitor nutritional status daily and consult lan/wan engineer if indicated 10. Implement neutropenic guidelines as needed 11. Review exposure to history of communicable disease and recent travel history on admission 12. Encourage annual influenza vaccine 13. Encourage pneumonia vaccine Outcome: Progressing Note: Evaluation of progress towards goal: pt remains afebrile, currently on antibiotics Problem: Knowledge Deficit Goal: Patient/patient in store marketing representative demonstrates understanding of disease process, treatment [...] Collaborate with ancillary departments 14. Include patient/patient in store marketing representative in decisions related to anxiety Outcome: [...] providing care 6. Collaborate with pastoral/spiritual care, social work assistant, mental health counselor as needed. 7. Instruct patient on diversional activities such as physical activity, distraction, and deep breathing exercises to assist with coping 8. Involve patient's in store marketing representative in care Outcome: Progressing Note: Evaluation [...] hydration as ordered 5. Instruct patient/ legal in store marketing representative on nutrition/diet; fluid/hydration restrictions as appropriate Outcome: Progressing Note: Evaluation of progress towards goal: electrolytes are continuing to be monitored and replacedper protocol * Plan of Care - Claudia MontañoSHARAD vail - 12/08/2023 3:27 PM EDT Problem: Low Risk Fall Score Description: [place] Fall Score of 0 - 24 or indicated by [facility] Assessment Goal: Patient should be free from fall Description: Interventions: 1. Champion to environment 2. Hourly rounds addressing the [...] non-skid footwear 11. Teach patient and patient in store marketing representative to maintain environment for safety and engage in all aspects of fall prevention program Outcome: Progressing Note: Evaluation of progress towards goal: pt remains free from falls at this time. Problem: Pain Goal: Patient goal is pain score less than 4, able to rest, and participant in treatment plan as appropriate Description: INTERVENTIONS: 1. Encourage patient or legal in store marketing representative to report early pain and ask [...] per policy 9. Teach patient or legal in store marketing representative interventions for comforting Outcome: Progressing Note: [...] at the bedside 7. Instruct patient/ patient in store marketing representative about use of safety devices 8. Include patient/ patient in store marketing representative in decisions related to safety Outcome: [...] hygiene technique 7. Identify and instruct patient/patient in store marketing representative in use of appropriate isolation precautionsfor identified infection/symptoms 8. Provide and discuss with patient/patient in store marketing representative on educational MDRO sheet 9. Encourage and monitor nutritional status daily and consult lan/wan engineer if indicated 10. Implement neutropenic guidelines as needed 11. Review exposure to history of communicable disease and recent travel history on admission 12. Encourage annual influenza vaccine 13. Encourage pneumonia vaccine Outcome: Progressing Note: Evaluation of progress towards goal: pt remains afebrile at this time. Problem: Knowledge Deficit Goal: Patient/patient in store marketing representative demonstrates understanding of disease process, treatment [...] Collaborate with ancillary departments 14. Include patient/patient in store marketing representative in decisions related to anxiety Outcome: [...] providing care 6. Collaborate with pastoral/spiritual care, social work assistant, mental health counselor as needed. 7. Instruct patient on diversional activities such as physical activity, distraction, and deep breathing exercises to assist with coping 8. Involve patient's in store marketing representative in care Outcome: Progressing Note: Evaluation [...] hydration as ordered 5. Instruct patient/ legal in store marketing representative on nutrition/diet; fluid/hydration restrictions as appropriate Outcome: Progressing Note: Evaluation of progress towards goal: electrolytes replaced within normal limits at this time. * Discharge Planning Note - Mariah Starr RN - 12/08/2023 3:23 PM EDT DISCHARGE PLANNING NOTE Patient discussed in DTRs. Barrier to discharge is ID plan. 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 Task sent to [facility] to get appointment set up. Plan is for patient to be discharged on Primaxin IV [facility] - MARIAH STARR RN 12/08/23 3:26 PM Primaxin IV is 100% covered. Script and prior auth sent to [facility] Medication will be delivered to the patient's home between 5-9pm. Spoke with Skye at [facility] and they have the standing order for weekly labs and weekly dressing change. Patient updated and agreeable with plan to discharge home this afternoon. Patient has appointment set for 01/14/[address] Herman Lui. - MARIAH STARR RN 12/09/23 2:19 PM CRF sent to [facility]. - MARIAH STARR RN 12/09/23 3:04 PM * Plan of Care - Aliza Benito RN - 12/08/2023 3:32 AM EDT Problem: Low Risk Fall Score Description: [place] Fall Score of 0 - 24 or indicated by [facility] Assessment Goal: Patient should be free from fall Description: Interventions: 1. Champion to environment 2. Hourly rounds addressing the [...] non-skid footwear 11. Teach patient and patient in store marketing representative to maintain environment for safety and engage in all aspects of fall prevention program Outcome: Progressing Note: Evaluation of progress towards goal: Pt remains free from falls. Will continue to provide a safe environment. Problem: Pain Goal: Patient goal is pain score less than 4, able to rest, and participant in treatment plan as appropriate Description: INTERVENTIONS: 1. Encourage patient or legal in store marketing representative to report early pain and ask [...] per policy 9. Teach patient or legal in store marketing representative interventions for comforting Outcome: Progressing Note: [...] at the bedside 7. Instruct patient/ patient in store marketing representative about use of safety devices 8. Include patient/ patient in store marketing representative in decisions related to safety Outcome: [...] hygiene technique 7. Identify and instruct patient/patient in store marketing representative in use of appropriate isolation precautionsfor identified infection/symptoms 8. Provide and discuss with patient/patient in store marketing representative on educational MDRO sheet 9. Encourage and monitor nutritional status daily and consult lan/wan engineer if indicated 10. Implement neutropenic guidelines as needed 11. Review exposure to history of communicable disease and recent travel history on admission 12. Encourage annual influenza vaccine 13. Encourage pneumonia vaccine Outcome: Progressing Note: Evaluation of progress towards goal: pt remains afebrile at this time, antibiotics are administered as ordered Problem: Knowledge Deficit Goal: Patient/patient in store marketing representative demonstrates understanding of disease process, treatment [...] Collaborate with ancillary departments 14. Include patient/patient in store marketing representative in decisions related to anxiety Outcome: [...] providing care 6. Collaborate with pastoral/spiritual care, social work assistant, mental health counselor as needed. 7. Instruct patient on diversional activities such as physical activity, distraction, and deep breathing exercises to assist with coping 8. Involve patient's in store marketing representative in care Outcome: Progressing Note: Evaluation [...] hydration as ordered 5. Instruct patient/ legal in store marketing representative on nutrition/diet; fluid/hydration restrictions as appropriate Outcome: Progressing Note: Evaluation of progress towards goal: electrolytes are monitored and replaced per orders * Discharge Planning Note - Mariah Starr RN - 12/07/2023 12:05 PM EDT DISCHARGE PLANNING NOTE Case discussed in daily transition rounds and chart reviewed by CN. Barriers to discharge include having fevers, elevated creatinine. Met with patient at bedside and plan remains - home at discharge. Discharge Plan remains: home with possible IV antibiotics. CN will continue to follow and is available should any further needs arise. - MARIAH STARR RN 12/07/23 12:06 PM * Plan of Care - Alisha Richardson RN - 12/07/2023 10:30 AM EDT Problem: Pain Goal: Patient goal is pain score less than 4, able to rest, and participant in treatment plan as appropriate Description: INTERVENTIONS: 1. Encourage patient or legal in store marketing representative to report early pain and ask [...] per policy 9. Teach patient or legal in store marketing representative interventions for comforting Outcome: Progressing Note: [...] at the bedside 7. Instruct patient/ patient in store marketing representative about use of safety devices 8. Include patient/ patient in store marketing representative in decisions related to safety Outcome: [...] hygiene technique 7. Identify and instruct patient/patient in store marketing representative in use of appropriate isolation precautionsfor identified infection/symptoms 8. Provide and discuss with patient/patient in store marketing representative on educational MDRO sheet 9. Encourage and monitor nutritional status daily and consult lan/wan engineer if indicated 10. Implement neutropenic guidelines as needed 11. Review exposure to history of communicable disease and recent travel history on admission 12. Encourage annual influenza vaccine 13. Encourage pneumonia vaccine Outcome: Progressing Note: Evaluation of progress towards goal: pt afebrile. WBC 2.7 Problem: Knowledge Deficit Goal: Patient/patient in store marketing representative demonstrates understanding of disease process, treatment [...] be free from fall Description: Interventions: 1. Champion to environment 2. Hourly rounds addressing the [...] non-skid footwear 11. Teach patient and patient in store marketing representative to maintain environment for safety and engage in all aspects of fall prevention program Outcome: Progressing Note: Evaluation of progress towards goal: Pt remains free from falls. Will continue to provide a safe environment. Problem: Pain Goal: Patient goal is pain score less than 4, able to rest, and participant in treatment plan as appropriate Description: INTERVENTIONS: 1. Encourage patient or legal in store marketing representative to report early pain and ask [...] per policy 9. Teach patient or legal in store marketing representative interventions for comforting Outcome: Progressing Note: [...] at the bedside 7. Instruct patient/ patient in store marketing representative about use of safety devices 8. Include patient/ patient in store marketing representative in decisions related to safety Outcome: [...] hygiene technique 7. Identify and instruct patient/patient in store marketing representative in use of appropriate isolation precautionsfor identified infection/symptoms 8. Provide and discuss with patient/patient in store marketing representative on educational MDRO sheet 9. Encourage and monitor nutritional status daily and consult lan/wan engineer if indicated 10. Implement neutropenic guidelines as needed 11. Review exposure to history of communicable disease and recent travel history on admission 12. Encourage annual influenza vaccine 13. Encourage pneumonia vaccine Outcome: Progressing Note: Evaluation of progress towards goal: patient remains on antibiotics at this time, monitoring for s/s of infection Problem: Knowledge Deficit Goal: Patient/patient in store marketing representative demonstrates understanding of disease process, treatment [...] Collaborate with ancillary departments 14. Include patient/patient in store marketing representative in decisions related to anxiety Outcome: [...] providing care 6. Collaborate with pastoral/spiritual care, social work assistant, mental health counselor as needed. 7. Instruct patient on diversional activities such as physical activity, distraction, and deep breathing exercises to assist with coping 8. Involve patient's in store marketing representative in care Outcome: Progressing Note: Evaluation [...] hydration as ordered 5. Instruct patient/ legal in store marketing representative on nutrition/diet; fluid/hydration restrictions as appropriate Outcome: Progressing Note: Evaluation of progress towards goal: electrolytes are within range at this time * Plan of Care - Alisha Richardson RN - 12/06/2023 9:51 AM EDT Problem: Pain Goal: Patient goal is pain score less than 4, able to rest, and participant in treatment plan as appropriate Description: INTERVENTIONS: 1. Encourage patient or legal in store marketing representative to report early pain and ask [...] per policy 9. Teach patient or legal in store marketing representative interventions for comforting Outcome: Progressing Note: [...] at the bedside 7. Instruct patient/ patient in store marketing representative about use of safety devices 8. Include patient/ patient in store marketing representative in decisions related to safety Outcome: [...] hygiene technique 7. Identify and instruct patient/patient in store marketing representative in use of appropriate isolation precautionsfor identified infection/symptoms 8. Provide and discuss with patient/patient in store marketing representative on educational MDRO sheet 9. Encourage and monitor nutritional status daily and consult lan/wan engineer if indicated 10. Implement neutropenic guidelines as needed 11. Review exposure to history of communicable disease and recent travel history on admission 12. Encourage annual influenza vaccine 13. Encourage pneumonia vaccine Outcome: Progressing Note: Evaluation of progress towards goal: pt afebrile this AM. WBC 3.0 Positive Wound culture [facility] Problem: Knowledge Deficit Goal: Patient/patient in store marketing representative demonstrates understanding of disease process, treatment [...] of 0 - 24 or indicated by [facility] Assessment Goal: Patient should be free from fall Description: Interventions: 1. Champion to environment 2. Hourly rounds addressing the [...] non-skid footwear 11. Teach patient and patient in store marketing representative to maintain environment for safety and engage in all aspects of fall prevention program Outcome: Progressing Note: Evaluation of progress towards goal: pt remains free from falls. Pt independent in room. Problem: Pain Goal: Patient goal is pain score less than 4, able to rest, and participant in treatment plan as appropriate Description: INTERVENTIONS: 1. Encourage patient or legal in store marketing representative to report early pain and ask [...] per policy 9. Teach patient or legal in store marketing representative interventions for comforting Outcome: Progressing Note: [...] at the bedside 7. Instruct patient/ patient in store marketing representative about use of safety devices 8. Include patient/ patient in store marketing representative in decisions related to safety Outcome: [...] hygiene technique 7. Identify and instruct patient/patient in store marketing representative in use of appropriate isolation precautionsfor identified infection/symptoms 8. Provide and discuss with patient/patient in store marketing representative on educational MDRO sheet 9. Encourage and monitor nutritional status daily and consult lan/wan engineer if indicated 10. Implement neutropenic guidelines as needed 11. Review exposure to history of communicable disease and recent travel history on admission 12. Encourage annual influenza vaccine 13. Encourage pneumonia vaccine Outcome: Progressing Note: Evaluation of progress towards goal: pt continues with intermittent fevers. Prn meds available. Problem: Knowledge Deficit Goal: Patient/patient in store marketing representative demonstrates understanding of disease process, treatment [...] hydration as ordered 5. Instruct patient/ legal in store marketing representative on nutrition/diet; fluid/hydration restrictions as appropriate Outcome: Progressing Note: Evaluation of progress towards goal: monitoring pt's labs and electrolytes. Replacing when needed. * Plan of Care - Claudia Masterson LPN - 12/05/2023 1:17 PM EDT Problem: Low Risk Fall Score Description: Pickens Fall Score of 0 - 24 or indicated by [facility] Assessment Goal: Patient should be free from fall Description: Interventions: 1. Champion to environment 2. Hourly rounds addressing the [...] non-skid footwear 11. Teach patient and patient in store marketing representative to maintain environment for safety and engage in all aspects of fall prevention program Outcome: Progressing Note: Evaluation of progress towards goal: pt free from falls at this time. Problem: Pain Goal: Patient goal is pain score less than 4, able to rest, and participant in treatment plan as appropriate Description: INTERVENTIONS: 1. Encourage patient or legal in store marketing representative to report early pain and ask [...] per policy 9. Teach patient or legal in store marketing representative interventions for comforting Outcome: Progressing Note: [...] at the bedside 7. Instruct patient/ patient in store marketing representative about use of safety devices 8. Include patient/ patient in store marketing representative in decisions related to safety Outcome: [...] hygiene technique 7. Identify and instruct patient/patient in store marketing representative in use of appropriate isolation precautionsfor identified infection/symptoms 8. Provide and discuss with patient/patient in store marketing representative on educational MDRO sheet 9. Encourage and monitor nutritional status daily and consult lan/wan engineer if indicated 10. Implement neutropenic guidelines as needed 11. Review exposure to history of communicable disease and recent travel history on admission 12. Encourage annual influenza vaccine 13. Encourage pneumonia vaccine Outcome: Progressing Note: Evaluation of progress towards goal: pt continues to have intermittent fevers at this time. Problem: Knowledge Deficit Goal: Patient/patient in store marketing representative demonstrates understanding of disease process, treatment [...] Collaborate with ancillary departments 14. Include patient/patient in store marketing representative in decisions related to anxiety Outcome: [...] providing care 6. Collaborate with pastoral/spiritual care, social work assistant, mental health counselor as needed. 7. Instruct patient on diversional activities such as physical activity, distraction, and deep breathing exercises to assist with coping 8. Involve patient's in store marketing representative in care Outcome: Progressing Note: Evaluation [...] hydration as ordered 5. Instruct patient/ legal in store marketing representative on nutrition/diet; fluid/hydration restrictions as appropriate Outcome: Progressing Note: Evaluation of progress towards goal: electrolytes replaced per scale at this time. * Plan of Care - Skye Mary RN - 12/05/2023 2:02 AM EDT Problem: Low Risk Fall Score Description: Pickens Fall Score of 0 - 24 or indicated by [facility] Assessment Goal: Patient should be free from fall Description: Interventions: 1. Champion to environment 2. Hourly rounds addressing the [...] non-skid footwear 11. Teach patient and patient in store marketing representative to maintain environment for safety and engage in all aspects of fall prevention program Outcome: Progressing Note: Evaluation of progress towards goal: pt remains free from falls. Pt independent in room. Problem: Pain Goal: Patient goal is pain score less than 4, able to rest, and participant in treatment plan as appropriate Description: INTERVENTIONS: 1. Encourage patient or legal in store marketing representative to report early pain and ask [...] per policy 9. Teach patient or legal in store marketing representative interventions for comforting Outcome: Progressing Note: [...] at the bedside 7. Instruct patient/ patient in store marketing representative about use of safety devices 8. Include patient/ patient in store marketing representative in decisions related to safety Outcome: [...] hygiene technique 7. Identify and instruct patient/patient in store marketing representative in use of appropriate isolation precautionsfor identified infection/symptoms 8. Provide and discuss with patient/patient in store marketing representative on educational MDRO sheet 9. Encourage and monitor nutritional status daily and consult lan/wan engineer if indicated 10. Implement neutropenic guidelines as needed 11. Review exposure to history of communicable disease and recent travel history on admission 12. Encourage annual influenza vaccine 13. Encourage pneumonia vaccine Outcome: Progressing Note: Evaluation of progress towards goal: monitoring pt for s/s of infection. Hand hygiene performed. Problem: Knowledge Deficit Goal: Patient/patient in store marketing representative demonstrates understanding of disease process, treatment [...] Collaborate with ancillary departments 14. Include patient/patient in store marketing representative in decisions related to anxiety Outcome: [...] providing care 6. Collaborate with pastoral/spiritual care, social work assistant, mental health counselor as needed. 7. Instruct patient on diversional activities such as physical activity, distraction, and deep breathing exercises to assist with coping 8. Involve patient's in store marketing representative in care Outcome: Progressing Note: Evaluation [...] hydration as ordered 5. Instruct patient/ legal in store marketing representative on nutrition/diet; fluid/hydration restrictions as appropriate Outcome: Progressing Note: Evaluation of progress towards goal: monitoring pt's labs and electrolytes. Replacing when needed. * Plan of Care - Claudia Masterson LPN - 12/04/2023 3:30 PM EDT Problem: Low Risk Fall Score Description: Pickens Fall Score of 0 - 24 or indicated by [facility] Assessment Goal: Patient should be free from fall Description: Interventions: 1. Champion to environment 2. Hourly rounds addressing the [...] non-skid footwear 11. Teach patient and patient in store marketing representative to maintain environment for safety and engage in all aspects of fall prevention program Outcome: Progressing Note: Evaluation of progress towards goal: fall precautions in place no falls at this time. Problem: Pain Goal: Patient goal is pain score less than 4, able to rest, and participant in treatment plan as appropriate Description: INTERVENTIONS: 1. Encourage patient or legal in store marketing representative to report early pain and ask [...] per policy 9. Teach patient or legal in store marketing representative interventions for comforting Outcome: Progressing Note: [...] at the bedside 7. Instruct patient/ patient in store marketing representative about use of safety devices 8. Include patient/ patient in store marketing representative in decisions related to safety Outcome: [...] hygiene technique 7. Identify and instruct patient/patient in store marketing representative in use of appropriate isolation precautionsfor identified infection/symptoms 8. Provide and discuss with patient/patient in store marketing representative on educational MDRO sheet 9. Encourage and monitor nutritional status daily and consult lan/wan engineer if indicated 10. Implement neutropenic guidelines as needed 11. Review exposure to history of communicable disease and recent travel history on admission 12. Encourage annual influenza vaccine 13. Encourage pneumonia vaccine Outcome: Progressing Note: Evaluation of progress towards goal: pt remains afebrile at this time. Problem: Knowledge Deficit Goal: Patient/patient in store marketing representative demonstrates understanding of disease process, treatment [...] Collaborate with ancillary departments 14. Include patient/patient in store marketing representative in decisions related to anxiety Outcome: [...] providing care 6. Collaborate with pastoral/spiritual care, social work assistant, mental health counselor as needed. 7. Instruct patient on diversional activities such as physical activity, distraction, and deep breathing exercises to assist with coping 8. Involve patient's in store marketing representative in care Outcome: Progressing Note: Evaluation [...] hydration as ordered 5. Instruct patient/ legal in store marketing representative on nutrition/diet; fluid/hydration restrictions as appropriate Outcome: Progressing Note: Evaluation of progress towards goal: electrolytes within normal limits at this time. * Discharge Planning Note - Mariah Starr RN - 12/04/2023 1:07 PM EDT DISCHARGE [...] should any further needs arise. - MARIAH STARR RN 12/04/23 1:08 PM * Plan of Care - Skye Mary RN - 12/04/2023 12:43 AM EDT Problem: Low Risk Fall Score Description: Pickens Fall Score of 0 - 24 or indicated by [facility] Assessment Goal: Patient should be free from fall Description: Interventions: 1. Champion to environment 2. Hourly rounds addressing the [...] non-skid footwear 11. Teach patient and patient in store marketing representative to maintain environment for safety and engage in all aspects of fall prevention program Outcome: Progressing Note: Evaluation of progress towards goal: pt remains free from falls. Pt independent in room. Problem: Pain Goal: Patient goal is pain score less than 4, able to rest, and participant in treatment plan as appropriate Description: INTERVENTIONS: 1. Encourage patient or legal in store marketing representative to report early pain and ask [...] per policy 9. Teach patient or legal in store marketing representative interventions for comforting Outcome: Progressing Note: [...] at the bedside 7. Instruct patient/ patient in store marketing representative about use of safety devices 8. Include patient/ patient in store marketing representative in decisions related to safety Outcome: [...] hygiene technique 7. Identify and instruct patient/patient in store marketing representative in use of appropriate isolation precautionsfor identified infection/symptoms 8. Provide and discuss with patient/patient in store marketing representative on educational MDRO sheet 9. Encourage and monitor nutritional status daily and consult lan/wan engineer if indicated 10. Implement neutropenic guidelines as needed 11. Review exposure to history of communicable disease and recent travel history on admission 12. Encourage annual influenza vaccine 13. Encourage pneumonia vaccine Outcome: Progressing Note: Evaluation of progress towards goal: pt remains afebrile. Hand hygiene performed. Problem: Knowledge Deficit Goal: Patient/patient in store marketing representative demonstrates understanding of disease process, treatment [...] hydration as ordered 5. Instruct patient/ legal in store marketing representative on nutrition/diet; fluid/hydration restrictions as appropriate Outcome: Progressing Note: Evaluation of progress towards goal: monitoring pt's labs and electrolytes. Replacing when needed. * Plan of Care - Claudia Masterson, [employer] - 12/03/2023 5:13 PM EDT Problem: Low Risk Fall Score Description: Pickens Fall Score of 0 - 24 or indicated by [facility] Assessment Goal: Patient should be free from fall Description: Interventions: 1. Champion to environment 2. Hourly rounds addressing the [...] non-skid footwear 11. Teach patient and patient in store marketing representative to maintain environment for safety and engage in all aspects of fall prevention program Outcome: Progressing Note: Evaluation of progress towards goal: fall precautions in place, pt remains free from falls atthis time. Problem: Pain Goal: Patient goal is pain score less than 4, able to rest, and participant in treatment plan as appropriate Description: INTERVENTIONS: 1. Encourage patient or legal in store marketing representative to report early pain and ask [...] per policy 9. Teach patient or legal in store marketing representative interventions for comforting Outcome: Progressing Note: [...] at the bedside 7. Instruct patient/ patient in store marketing representative about use of safety devices 8. Include patient/ patient in store marketing representative in decisions related to safety Outcome: [...] hygiene technique 7. Identify and instruct patient/patient in store marketing representative in use of appropriate isolation precautionsfor identified infection/symptoms 8. Provide and discuss with patient/patient in store marketing representative on educational MDRO sheet 9. Encourage and monitor nutritional status daily and consult lan/wan engineer if indicated 10. Implement neutropenic guidelines as needed 11. Review exposure to history of communicable disease and recent travel history on admission 12. Encourage annual influenza vaccine 13. Encourage pneumonia vaccine Outcome: Progressing Note: Evaluation of progress towards goal: pt remains afebrile at this time. Problem: Knowledge Deficit Goal: Patient/patient in store marketing representative demonstrates understanding of disease process, treatment [...] Collaborate with ancillary departments 14. Include patient/patient in store marketing representative in decisions related to anxiety Outcome: [...] providing care 6. Collaborate with pastoral/spiritual care, social work assistant, mental health counselor as needed. 7. Instruct patient on diversional activities such as physical activity, distraction, and deep breathing exercises to assist with coping 8. Involve patient's in store marketing representative in care Outcome: Progressing Note: Evaluation [...] hydration as ordered 5. Instruct patient/ legal in store marketing representative on nutrition/diet; fluid/hydration restrictions as appropriate Outcome: Progressing Note: Evaluation of progress towards goal: electrolytes continue to need replacement at this time. * Discharge Planning Note - Heike Anderson - 12/03/2023 9:59 AM EDT DISCHARGE PLANNING NOTE Referral to [facility] [place], [place] [facility] - (P# ; F# ) * Discharge Planning Note - Mariah Starr RN - 12/03/2023 9:16 AM EDT DISCHARGE PLANNING NOTE Sediment Remediation Consultant met with patient and at bedside, introduced [...] - Vanco/Ertapenum at home thru [facility] with [facility] drawing labs three days a week and weekly port dressing changes. Patient denies need for transportation/ food/ prescription medication assistance resources. PCP: RICHIE HANNA APRN-[facility]OGHURT MAKER Pharmacy:[facility] in [place] PCP and pharmacy confirmed with patient. CN offered to assist with follow up appointment arrangements, patient declined need. Current discharge plan is: home with IV antibiotics Task sent to [facility] to send referral to [facility]. Will continue to follow as plan of care develops. CN discussed benefits and importance of medication compliance and follow ups. - MARIAH STARR RN 12/03/23 9:16 AM * Plan of Care - Shanice Hogan RN - 12/03/2023 1:08 AM EDT Problem: Low Risk Fall Score Description: Pickens Fall Score of 0 - 24 or indicated by [facility] Assessment Goal: Patient should be free from fall Description: Interventions: 1. Champion to environment 2. Hourly rounds addressing the [...] non-skid footwear 11. Teach patient and patient in store marketing representative to maintain environment for safety and [...] Description: INTERVENTIONS: 1. Encourage patient or legal in store marketing representative to report early pain and ask [...] per policy 9. Teach patient or legal in store marketing representative interventions for comforting Outcome: Progressing Note: [...] at the bedside 7. Instruct patient/ patient in store marketing representative about use of safety devices 8. Include patient/ patient in store marketing representative in decisions related to safety Outcome: [...] hygiene technique 7. Identify and instruct patient/patient in store marketing representative in use of appropriate isolation precautionsfor identified infection/symptoms 8. Provide and discuss with patient/patient in store marketing representative on educational MDRO sheet 9. Encourage and monitor nutritional status daily and consult lan/wan engineer if indicated 10. Implement neutropenic guidelines as needed 11. Review exposure to history of communicable disease and recent travel history on admission 12. Encourage annual influenza vaccine 13. Encourage pneumonia vaccine Outcome: Progressing Note: Evaluation of progress towards goal: Afebrile, labs and VS monitored Problem: Knowledge Deficit Goal: Patient/patient in store marketing representative demonstrates understanding of disease process, treatment [...] Collaborate with ancillary departments 14. Include patient/patient in store marketing representative in decisions related to anxiety Outcome: [...] providing care 6. Collaborate with pastoral/spiritual care, social work assistant, mental health counselor as needed. 7. Instruct patient on diversional activities such as physical activity, distraction, and deep breathing exercises to assist with coping 8. Involve patient's in store marketing representative in care Outcome: Progressing Note: Evaluation [...] hydration as ordered 5. Instruct patient/ legal in store marketing representative on nutrition/diet; fluid/hydration restrictions as appropriate Outcome: Progressing Note: Evaluation of progress towards goal: Display of normal lab values. Electrolytes are replaced as needed. [facility]* Amy Jack MD - 12/09/2023 2:48 PM EDT Images from the original note were not included. [facility] [place] [id number] ON[address]OGY[address] [place] [id number] Hospital Medicine Discharge Summary Patient: Ike Flannery Date of : 1970 Room: Formerly named [facility] Encounter date: 12/09/23 DATE OF ADMISSION: 12/02/2023 DATE OF DISCHARGE:12/09/2023 DISCHARGE DIAGNOSES # Acute kidney injury, ATN, multifactorial in the setting of decreased p.o. 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 follow up with primary medical oncology physician Dr. Clint Bazan. follow-up with nephrology in 1 month. HOSPITAL COURSE SUMMARY Ike Flannery is a 53 y.o. female who presents [...] 14 tentatively. She will follow up with [facility] Dr. Lui on 01/13/ Patient's [...] (0.083 %) nebulizer solution Commonly known as: PROVENTILVENTOLIN Inhale 3 mL (2.5 mg total) by [...] Your Medications These medications were sent to [place] [id number] ciprofloxacin HCl 500 mg tablet clarithromycin 500 mg tablet cyanocobalamin 1000 MCG tablet linezolid 600 mg tablet You can get these medications from any pharmacy Bring a paper prescription for each of these medications imipenem-cilastatin 500 mg in sodium chloride 0.9 % 100 mL IVPB MINI-BAG Plus >30 minutes were spent on discharging this patient. Amy Jack MD 12/09/2023 2:48 PM [facility] Internal Medicine 7AM-7PM (all facilities): Hubert or anil through [facility]. 7PM-7AM ([facility], [facility] Psychiatry and Inpatient Rehab): Hubert or anil, [phone]. 7PM-7AM ([facility], [place], [place] and [facility] Rehab): EpicHeather or page through [employer]. [facility] Hospital Discharge instructions* Discharge Instructions* Amy Jack MD - 12/09/2023 2:42 PM EDT take ciprofloxacin for 2 week course of treatment until December 15 and then Zyvox from December 16 to December 29, clarithromycin until January 14 tentatively, and imipenem until January 14tentatively Ambulatory referral placed for [facility] Dr. Lui for senior living management -has appointment January 13 Check labs WBC, platelets, creatinine, LFTs weekly while on antibiotics. follow up with primary medical oncology physician Dr. Clint Bazan. follow-up with nephrology in 1 month. Please [...] or call to reschedule. Thank you! HERMAN LUI, The [place] [address] Infectious Disease [facility] [id number] Go on 01/14/2024 at 2 PM Pt. [...] For NEW patients, MD will not prescribe senior living pain medication. * Attachments The following attachments cannot be sent through Care Everywhere. * Acute kidney injury (Spanish) * How to Prevent Surgical Site Infections (Spanish) documented in this encounterJoint [facility] District [facility] HospitalLibrestream Technologies Inc.10-09-2024 Plan of care note * Plan of Care - Aliza Benito RN - 12/09/2023 4:18 AM EDT Problem: Low Risk Fall Score Description: Pickens Fall Score of 0 - 24 or indicated by [facility] Assessment Goal: Patient should be free from fall Description: Interventions: 1. Champion to environment 2. Hourly rounds addressing the [...] non-skid footwear 11. Teach patient and patient in store marketing representative to maintain environment for safety and engage in all aspects of fall prevention program Outcome: Progressing Note: Evaluation of progress towards goal: Pt remains free from falls. Will continue to provide a safe environment. Problem: Pain Goal: Patient goal is pain score less than 4, able to rest, and participant in treatment plan as appropriate Description: INTERVENTIONS: 1. Encourage patient or legal in store marketing representative to report early pain and ask [...] per policy 9. Teach patient or legal in store marketing representative interventions for comforting Outcome: Progressing Note: [...] at the bedside 7. Instruct patient/ patient in store marketing representative about use of safety devices 8. Include patient/ patient in store marketing representative in decisions related to safety Outcome: [...] hygiene technique 7. Identify and instruct patient/patient in store marketing representative in use of appropriate isolation precautionsfor identified infection/symptoms 8. Provide and discuss with patient/patient in store marketing representative on educational MDRO sheet 9. Encourage and monitor nutritional status daily and consult lan/wan engineer if indicated 10. Implement neutropenic guidelines as needed 11. Review exposure to history of communicable disease and recent travel history on admission 12. Encourage annual influenza vaccine 13. Encourage pneumonia vaccine Outcome: Progressing Note: Evaluation of progress towards goal: pt remains afebrile, currently on antibiotics Problem: Knowledge Deficit Goal: Patient/patient in store marketing representative demonstrates understanding of disease process, treatment [...] Collaborate with ancillary departments 14. Include patient/patient in store marketing representative in decisions related to anxiety Outcome: [...] providing care 6. Collaborate with pastoral/spiritual care, social work assistant, mental health counselor as needed. 7. Instruct patient on diversional activities such as physical activity, distraction, and deep breathing exercises to assist with coping 8. Involve patient's in store marketing representative in care Outcome: Progressing Note: Evaluation [...] hydration as ordered 5. Instruct patient/ legal in store marketing representative on nutrition/diet; fluid/hydration restrictions as appropriate Outcome: Progressing Note: Evaluation of progress towards goal: electrolytes are continuing to be monitored and replacedper protocol [facility] [id number] Plan of care note* Plan of Care - Claudia Masterson LPN - 12/08/2023 3:27 PM EDT Problem: Low Risk Fall Score Description: Pickens Fall Score of 0 - 24 or indicated by [facility] Assessment Goal: Patient should be free from fall Description: Interventions: 1. Champion to environment 2. Hourly rounds addressing the [...] non-skid footwear 11. Teach patient and patient in store marketing representative to maintain environment for safety and engage in all aspects of fall prevention program Outcome: Progressing Note: Evaluation of progress towards goal: pt remains free from falls at this time. Problem: Pain Goal: Patient goal is pain score less than 4, able to rest, and participant in treatment plan as appropriate Description: INTERVENTIONS: 1. Encourage patient or legal in store marketing representative to report early pain and ask [...] per policy 9. Teach patient or legal in store marketing representative interventions for comforting Outcome: Progressing Note: [...] at the bedside 7. Instruct patient/ patient in store marketing representative about use of safety devices 8. Include patient/ patient in store marketing representative in decisions related to safety Outcome: [...] hygiene technique 7. Identify and instruct patient/patient in store marketing representative in use of appropriate isolation precautionsfor identified infection/symptoms 8. Provide and discuss with patient/patient in store marketing representative on educational MDRO sheet 9. Encourage and monitor nutritional status daily and consult lan/wan engineer if indicated 10. Implement neutropenic guidelines as needed 11. Review exposure to history of communicable disease and recent travel history on admission 12. Encourage annual influenza vaccine 13. Encourage pneumonia vaccine Outcome: Progressing Note: Evaluation of progress towards goal: pt remains afebrile at this time. Problem: Knowledge Deficit Goal: Patient/patient in store marketing representative demonstrates understanding of disease process, treatment [...] Collaborate with ancillary departments 14. Include patient/patient in store marketing representative in decisions related to anxiety Outcome: [...] providing care 6. Collaborate with pastoral/spiritual care, social work assistant, mental health counselor as needed. 7. Instruct patient on diversional activities such as physical activity, distraction, and deep breathing exercises to assist with coping 8. Involve patient's in store marketing representative in care Outcome: Progressing Note: Evaluation [...] hydration as ordered 5. Instruct patient/ legal in store marketing representative on nutrition/diet; fluid/hydration restrictions as appropriate Outcome: Progressing Note: Evaluation of progress towards goal: electrolytes replaced within normal limits at this time. [facility]10-08-2024 Progress note* Discharge Planning Note - Mariah Starr RN - 12/08/2023 3:23 PM EDT DISCHARGE PLANNING NOTE Patient discussed in DTRs. Barrier to discharge is ID plan. 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 Task sent to [facility] to get appointment set up. Plan is for patient to be discharged on Primaxin IV - sent olga sandoval. - MARIAH STARR RN 12/08/23 3:26 PM Primaxin IV is 100% covered. Script [facility] prior [facility]. Medication will be delivered to the patient's home between 5-9pm. Spoke with Skye at [facility] and they have the standing order for weekly labs and weekly dressing change. Patient updated and agreeable with plan to discharge home this afternoon. Patient has appointment set for 01/14/[address] Herman Lui. - MARIAH STARR RN 12/09/23 2:19 PM CRF sent to [facility]. 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 Champion to environment 2. Hourly rounds addressing the [...] non-skid footwear 11. Teach patient and patient in store marketing representative to maintain environment for safety and engage in all aspects of fall prevention program Outcome: Progressing Note: Evaluation of progress towards goal: Pt remains free from falls. Will continue to provide a safe environment. Problem: Pain Goal: Patient goal is pain score less than 4, able to rest, and participant in treatment plan as appropriate Description: INTERVENTIONS: 1. Encourage patient or legal in store marketing representative to report early pain and ask [...] per policy 9. Teach patient or legal in store marketing representative interventions for comforting Outcome: Progressing Note: [...] at the bedside 7. Instruct patient/ patient in store marketing representative about use of safety devices 8. Include patient/ patient in store marketing representative in decisions related to safety Outcome: [...] hygiene technique 7. Identify and instruct patient/patient in store marketing representative in use of appropriate isolation precautionsfor identified infection/symptoms 8. Provide and discuss with patient/patient in store marketing representative on educational MDRO sheet 9. Encourage and monitor nutritional status daily and consult lan/wan engineer if indicated 10. Implement neutropenic guidelines as needed 11. Review exposure to history of communicable disease and recent travel history on admission 12. Encourage annual influenza vaccine 13. Encourage pneumonia vaccine Outcome: Progressing Note: Evaluation of progress towards goal: pt remains afebrile at this time, antibiotics are administered as ordered Problem: Knowledge Deficit Goal: Patient/patient in store marketing representative demonstrates understanding of disease process, treatment [...] Collaborate with ancillary departments 14. Include patient/patient in store marketing representative in decisions related to anxiety Outcome: [...] providing care 6. Collaborate with pastoral/spiritual care, social work assistant, mental health counselor as needed. 7. Instruct patient on diversional activities such as physical activity, distraction, and deep breathing exercises to assist with coping 8. Involve patient's in store marketing representative in care Outcome: Progressing Note: Evaluation [...] hydration as ordered 5. Instruct patient/ legal in store marketing representative on nutrition/diet; fluid/hydration restrictions as appropriate Outcome: Progressing Note: Evaluation of progress towards goal: electrolytes are monitored and replaced per orders [facility]10-07-[facility] Progress note* Discharge Planning Note - Mariah Starr RN - 12/07/2023 12:05 PM EDT DISCHARGE PLANNING NOTE Case discussed in daily transition rounds and chart reviewed by CN. Barriers to discharge include having fevers, elevated creatinine. Met with patient at bedside and plan remains - home at discharge. Discharge Plan remains: home with possible IV antibiotics. CN will continue to follow and is available should any further needs arise. - MARIAH STARR RN 12/07/23 12:06 PM [facility]10-[facility] Plan of care note* Plan of Care - Alisha Richardson RN - 12/07/2023 10:30 AM EDT Problem: Pain Goal: Patient goal is pain score less than 4, able to rest, and participant in treatment plan as appropriate Description: INTERVENTIONS: 1. Encourage patient or legal in store marketing representative to report early pain and ask [...] per policy 9. Teach patient or legal in store marketing representative interventions for comforting Outcome: Progressing Note: [...] at the bedside 7. Instruct patient/ patient in store marketing representative about use of safety devices 8. Include patient/ patient in store marketing representative in decisions related to safety Outcome: [...] hygiene technique 7. Identify and instruct patient/patient in store marketing representative in use of appropriate isolation precautionsfor identified infection/symptoms 8. Provide and discuss with patient/patient in store marketing representative on educational MDRO sheet 9. Encourage and monitor nutritional status daily and consult lan/wan engineer if indicated 10. Implement neutropenic guidelines as needed 11. Review exposure to history of communicable disease and recent travel history on admission 12. Encourage annual influenza vaccine 13. Encourage pneumonia vaccine Outcome: Progressing Note: Evaluation of progress towards goal: pt afebrile. WBC 2.7 Problem: Knowledge Deficit Goal: Patient/patient in store marketing representative demonstrates understanding of disease process, treatment [...] of progress towards goal: d/c plans pending [facility]10-[facility] Plan of care note* Plan of Care - Aliza Benito RN - 12/07/2023 5:19 AM EDT Problem: Low Risk Fall Score Description: Pickens Fall Score of 0 - 24 or indicated by [facility] Assessment Goal: Patient should be free from fall Description: Interventions: 1. Champion to environment 2. Hourly rounds addressing the [...] non-skid footwear 11. Teach patient and patient in store marketing representative to maintain environment for safety and engage in all aspects of fall prevention program Outcome: Progressing Note: Evaluation of progress towards goal: Pt remains free from falls. Will continue to provide a safe environment. Problem: Pain Goal: Patient goal is pain score less than 4, able to rest, and participant in treatment plan as appropriate Description: INTERVENTIONS: 1. Encourage patient or legal in store marketing representative to report early pain and ask [...] per policy 9. Teach patient or legal in store marketing representative interventions for comforting Outcome: Progressing Note: [...] at the bedside 7. Instruct patient/ patient in store marketing representative about use of safety devices 8. Include patient/ patient in store marketing representative in decisions related to safety Outcome: [...] hygiene technique 7. Identify and instruct patient/patient in store marketing representative in use of appropriate isolation precautionsfor identified infection/symptoms 8. Provide and discuss with patient/patient in store marketing representative on educational MDRO sheet 9. Encourage and monitor nutritional status daily and consult lan/wan engineer if indicated 10. Implement neutropenic guidelines as needed 11. Review exposure to history of communicable disease and recent travel history on admission 12. Encourage annual influenza vaccine 13. Encourage pneumonia vaccine Outcome: Progressing Note: Evaluation of progress towards goal: patient remains on antibiotics at this time, monitoring for s/s of infection Problem: Knowledge Deficit Goal: Patient/patient in store marketing representative demonstrates understanding of disease process, treatment [...] Collaborate with ancillary departments 14. Include patient/patient in store marketing representative in decisions related to anxiety Outcome: [...] providing care 6. Collaborate with pastoral/spiritual care, social work assistant, mental health counselor as needed. 7. Instruct patient on diversional activities such as physical activity, distraction, and deep breathing exercises to assist with coping 8. Involve patient's in store marketing representative in care Outcome: Progressing Note: Evaluation [...] hydration as ordered 5. Instruct patient/ legal in store marketing representative on nutrition/diet; fluid/hydration restrictions as appropriate Outcome: Progressing Note: Evaluation of progress towards goal: electrolytes are within range at this time [facility]10-06-[facility] Plan of care note* Plan of Care - Alisha Richardson RN - 12/06/2023 9:51 AM EDT Problem: Pain Goal: Patient goal is pain score less than 4, able to rest, and participant in treatment plan as appropriate Description: INTERVENTIONS: 1. Encourage patient or legal in store marketing representative to report early pain and ask [...] per policy 9. Teach patient or legal in store marketing representative interventions for comforting Outcome: Progressing Note: [...] at the bedside 7. Instruct patient/ patient in store marketing representative about use of safety devices 8. Include patient/ patient in store marketing representative in decisions related to safety Outcome: [...] hygiene technique 7. Identify and instruct patient/patient in store marketing representative in use of appropriate isolation precautionsfor identified infection/symptoms 8. Provide and discuss with patient/patient in store marketing representative on educational MDRO sheet 9. Encourage and monitor nutritional status daily and consult lan/wan engineer if indicated 10. Implement neutropenic guidelines as needed 11. Review exposure to history of communicable disease and recent travel history on admission 12. Encourage annual influenza vaccine 13. Encourage pneumonia vaccine Outcome: Progressing Note: Evaluation of progress towards goal: pt afebrile this AM. WBC 3.0 Positive Wound culture [facility] Problem: Knowledge Deficit Goal: Patient/patient in store marketing representative demonstrates understanding of disease process, treatment [...] progress towards goal: awaiting referral for [facility] [id number] Plan of care note* Plan of Care - Skye Mary RN - 12/06/2023 1:56 AM EDT Problem: Low Risk Fall Score Description: Pickens Fall Score of 0 - 24 or indicated by [facility] Assessment Goal: Patient should be free from fall Description: Interventions: 1. Champion to environment 2. Hourly rounds addressing the [...] non-skid footwear 11. Teach patient and patient in store marketing representative to maintain environment for safety and engage in all aspects of fall prevention program Outcome: Progressing Note: Evaluation of progress towards goal: pt remains free from falls. Pt independent in room. Problem: Pain Goal: Patient goal is pain score less than 4, able to rest, and participant in treatment plan as appropriate Description: INTERVENTIONS: 1. Encourage patient or legal in store marketing representative to report early pain and ask [...] per policy 9. Teach patient or legal in store marketing representative interventions for comforting Outcome: Progressing Note: [...] at the bedside 7. Instruct patient/ patient in store marketing representative about use of safety devices 8. Include patient/ patient in store marketing representative in decisions related to safety Outcome: [...] hygiene technique 7. Identify and instruct patient/patient in store marketing representative in use of appropriate isolation precautionsfor identified infection/symptoms 8. Provide and discuss with patient/patient in store marketing representative on educational MDRO sheet 9. Encourage and monitor nutritional status daily and consult lan/wan engineer if indicated 10. Implement neutropenic guidelines as needed 11. Review exposure to history of communicable disease and recent travel history on admission 12. Encourage annual influenza vaccine 13. Encourage pneumonia vaccine Outcome: Progressing Note: Evaluation of progress towards goal: pt continues with intermittent fevers. Prn meds available. Problem: Knowledge Deficit Goal: Patient/patient in store marketing representative demonstrates understanding of disease process, treatment [...] hydration as ordered 5. Instruct patient/ legal in store marketing representative on nutrition/diet; fluid/hydration restrictions as appropriate Outcome: Progressing Note: Evaluation of progress towards goal: monitoring pt's labs and electrolytes. Replacing when needed. [facility] [id number] Plan of care note* Plan of Care - Claudia Masterson, [employer] - 12/05/2023 1:17 PM EDT Problem: Low Risk Fall Score Description: Pickens Fall Score of 0 - 24 or indicated by [facility] Assessment Goal: Patient should be free from fall Description: Interventions: 1. Champion to environment 2. Hourly rounds addressing the [...] non-skid footwear 11. Teach patient and patient in store marketing representative to maintain environment for safety and engage in all aspects of fall prevention program Outcome: Progressing Note: Evaluation of progress towards goal: pt free from falls at this time. Problem: Pain Goal: Patient goal is pain score less than 4, able to rest, and participant in treatment plan as appropriate Description: INTERVENTIONS: 1. Encourage patient or legal in store marketing representative to report early pain and ask [...] per policy 9. Teach patient or legal in store marketing representative interventions for comforting Outcome: Progressing Note: [...] at the bedside 7. Instruct patient/ patient in store marketing representative about use of safety devices 8. Include patient/ patient in store marketing representative in decisions related to safety Outcome: [...] hygiene technique 7. Identify and instruct patient/patient in store marketing representative in use of appropriate isolation precautionsfor identified infection/symptoms 8. Provide and discuss with patient/patient in store marketing representative on educational MDRO sheet 9. Encourage and monitor nutritional status daily and consult lan/wan engineer if indicated 10. Implement neutropenic guidelines as needed 11. Review exposure to history of communicable disease and recent travel history on admission 12. Encourage annual influenza vaccine 13. Encourage pneumonia vaccine Outcome: Progressing Note: Evaluation of progress towards goal: pt continues to have intermittent fevers at this time. Problem: Knowledge Deficit Goal: Patient/patient in store marketing representative demonstrates understanding of disease process, treatment [...] Collaborate with ancillary departments 14. Include patient/patient in store marketing representative in decisions related to anxiety Outcome: [...] providing care 6. Collaborate with pastoral/spiritual care, social work assistant, mental health counselor as needed. 7. Instruct patient on diversional activities such as physical activity, distraction, and deep breathing exercises to assist with coping 8. Involve patient's in store marketing representative in care Outcome: Progressing Note: Evaluation [...] hydration as ordered 5. Instruct patient/ legal in store marketing representative on nutrition/diet; fluid/hydration restrictions as appropriate Outcome: Progressing Note: Evaluation of progress towards goal: electrolytes replaced per scale at this time. [employer] [id number] Plan of care note* Plan of Care - Skye Mary RN - 12/05/2023 2:02 AM EDT Problem: Low Risk Fall Score Description: Pickens Fall Score of 0 - 24 or indicated by [facility] Assessment Goal: Patient should be free from fall Description: Interventions: 1. Champion to environment 2. Hourly rounds addressing the [...] non-skid footwear 11. Teach patient and patient in store marketing representative to maintain environment for safety and engage in all aspects of fall prevention program Outcome: Progressing Note: Evaluation of progress towards goal: pt remains free from falls. Pt independent in room. Problem: Pain Goal: Patient goal is pain score less than 4, able to rest, and participant in treatment plan as appropriate Description: INTERVENTIONS: 1. Encourage patient or legal in store marketing representative to report early pain and ask [...] per policy 9. Teach patient or legal in store marketing representative interventions for comforting Outcome: Progressing Note: [...] at the bedside 7. Instruct patient/ patient in store marketing representative about use of safety devices 8. Include patient/ patient in store marketing representative in decisions related to safety Outcome: [...] hygiene technique 7. Identify and instruct patient/patient in store marketing representative in use of appropriate isolation precautionsfor identified infection/symptoms 8. Provide and discuss with patient/patient in store marketing representative on educational MDRO sheet 9. Encourage and monitor nutritional status daily and consult lan/wan engineer if indicated 10. Implement neutropenic guidelines as needed 11. Review exposure to history of communicable disease and recent travel history on admission 12. Encourage annual influenza vaccine 13. Encourage pneumonia vaccine Outcome: Progressing Note: Evaluation of progress towards goal: monitoring pt for s/s of infection. Hand hygiene performed. Problem: Knowledge Deficit Goal: Patient/patient in store marketing representative demonstrates understanding of disease process, treatment [...] Collaborate with ancillary departments 14. Include patient/patient in store marketing representative in decisions related to anxiety Outcome: [...] providing care 6. Collaborate with pastoral/spiritual care, social work assistant, mental health counselor as needed. 7. Instruct patient on diversional activities such as physical activity, distraction, and deep breathing exercises to assist with coping 8. Involve patient's in store marketing representative in care Outcome: Progressing Note: Evaluation [...] hydration as ordered 5. Instruct patient/ legal in store marketing representative on nutrition/diet; fluid/hydration restrictions as appropriate Outcome: Progressing Note: Evaluation of progress towards goal: monitoring pt's labs and electrolytes. Replacing when needed. [employer] [id number] Plan of care note* Plan of Care - Claudia Masterson LPN - 12/04/2023 3:30 PM EDT Problem: Low Risk Fall Score Description: Pickens Fall Score of 0 - 24 or indicated by [facility] Assessment Goal: Patient should be free from fall Description: Interventions: 1. Champion to environment 2. Hourly rounds addressing the [...] non-skid footwear 11. Teach patient and patient in store marketing representative to maintain environment for safety and engage in all aspects of fall prevention program Outcome: Progressing Note: Evaluation of progress towards goal: fall precautions in place no falls at this time. Problem: Pain Goal: Patient goal is pain score less than 4, able to rest, and participant in treatment plan as appropriate Description: INTERVENTIONS: 1. Encourage patient or legal in store marketing representative to report early pain and ask [...] per policy 9. Teach patient or legal in store marketing representative interventions for comforting Outcome: Progressing Note: [...] at the bedside 7. Instruct patient/ patient in store marketing representative about use of safety devices 8. Include patient/ patient in store marketing representative in decisions related to safety Outcome: [...] hygiene technique 7. Identify and instruct patient/patient in store marketing representative in use of appropriate isolation precautionsfor identified infection/symptoms 8. Provide and discuss with patient/patient in store marketing representative on educational MDRO sheet 9. Encourage and monitor nutritional status daily and consult lan/wan engineer if indicated 10. Implement neutropenic guidelines as needed 11. Review exposure to history of communicable disease and recent travel history on admission 12. Encourage annual influenza vaccine 13. Encourage pneumonia vaccine Outcome: Progressing Note: Evaluation of progress towards goal: pt remains afebrile at this time. Problem: Knowledge Deficit Goal: Patient/patient in store marketing representative demonstrates understanding of disease process, treatment [...] Collaborate with ancillary departments 14. Include patient/patient in store marketing representative in decisions related to anxiety Outcome: [...] providing care 6. Collaborate with pastoral/spiritual care, social work assistant, mental health counselor as needed. 7. Instruct patient on diversional activities such as physical activity, distraction, and deep breathing exercises to assist with coping 8. Involve patient's in store marketing representative in care Outcome: Progressing Note: Evaluation [...] hydration as ordered 5. Instruct patient/ legal in store marketing representative on nutrition/diet; fluid/hydration restrictions as appropriate Outcome: Progressing Note: Evaluation of progress towards goal: electrolytes within normal limits at this time. [facility] CenterEn[facility] [id number] Progress note* Discharge Planning Note - Mariah Starr RN - 12/04/2023 1:07 PM EDT DISCHARGE [...] should any further needs arise. - MARIAH STARR RN 12/04/23 1:08 PM [facility]10-04-2024 Plan of care note* Plan of Care - Skye Mary RN - 12/04/2023 12:43 AM EDT Problem: Low Risk Fall Score Description: Pickens Fall Score of 0 - 24 or indicated by [facility] Assessment Goal: Patient should be free from fall Description: Interventions: 1. Champion to environment 2. Hourly rounds addressing the [...] non-skid footwear 11. Teach patient and patient in store marketing representative to maintain environment for safety and engage in all aspects of fall prevention program Outcome: Progressing Note: Evaluation of progress towards goal: pt remains free from falls. Pt independent in room. Problem: Pain Goal: Patient goal is pain score less than 4, able to rest, and participant in treatment plan as appropriate Description: INTERVENTIONS: 1. Encourage patient or legal in store marketing representative to report early pain and ask [...] per policy 9. Teach patient or legal in store marketing representative interventions for comforting Outcome: Progressing Note: [...] at the bedside 7. Instruct patient/ patient in store marketing representative about use of safety devices 8. Include patient/ patient in store marketing representative in decisions related to safety Outcome: [...] hygiene technique 7. Identify and instruct patient/patient in store marketing representative in use of appropriate isolation precautionsfor identified infection/symptoms 8. Provide and discuss with patient/patient in store marketing representative on educational MDRO sheet 9. Encourage and monitor nutritional status daily and consult lan/wan engineer if indicated 10. Implement neutropenic guidelines as needed 11. Review exposure to history of communicable disease and recent travel history on admission 12. Encourage annual influenza vaccine 13. Encourage pneumonia vaccine Outcome: Progressing Note: Evaluation of progress towards goal: pt remains afebrile. Hand hygiene performed. Problem: Knowledge Deficit Goal: Patient/patient in store marketing representative demonstrates understanding of disease process, treatment [...] hydration as ordered 5. Instruct patient/ legal in store marketing representative on nutrition/diet; fluid/hydration restrictions as appropriate Outcome: Progressing Note: Evaluation of progress towards goal: monitoring pt's labs and electrolytes. Replacing when needed. [facility] CenterThe [employer] [id number] Plan of care note* Plan of Care - Claudia Masterson LPN - 12/03/2023 5:13 PM EDT Problem: Low Risk Fall Score Description: Pickens Fall Score of 0 - 24 or indicated by [facility] Assessment Goal: Patient should be free from fall Description: Interventions: 1. Champion to environment 2. Hourly rounds addressing the [...] non-skid footwear 11. Teach patient and patient in store marketing representative to maintain environment for safety and engage in all aspects of fall prevention program Outcome: Progressing Note: Evaluation of progress towards goal: fall precautions in place, pt remains free from falls atthis time. Problem: Pain Goal: Patient goal is pain score less than 4, able to rest, and participant in treatment plan as appropriate Description: INTERVENTIONS: 1. Encourage patient or legal in store marketing representative to report early pain and ask [...] per policy 9. Teach patient or legal in store marketing representative interventions for comforting Outcome: Progressing Note: [...] at the bedside 7. Instruct patient/ patient in store marketing representative about use of safety devices 8. Include patient/ patient in store marketing representative in decisions related to safety Outcome: [...] hygiene technique 7. Identify and instruct patient/patient in store marketing representative in use of appropriate isolation precautionsfor identified infection/symptoms 8. Provide and discuss with patient/patient in store marketing representative on educational MDRO sheet 9. Encourage and monitor nutritional status daily and consult lan/wan engineer if indicated 10. Implement neutropenic guidelines as needed 11. Review exposure to history of communicable disease and recent travel history on admission 12. Encourage annual influenza vaccine 13. Encourage pneumonia vaccine Outcome: Progressing Note: Evaluation of progress towards goal: pt remains afebrile at this time. Problem: Knowledge Deficit Goal: Patient/patient in store marketing representative demonstrates understanding of disease process, treatment [...] Collaborate with ancillary departments 14. Include patient/patient in store marketing representative in decisions related to anxiety Outcome: [...] providing care 6. Collaborate with pastoral/spiritual care, social work assistant, mental health counselor as needed. 7. Instruct patient on diversional activities such as physical activity, distraction, and deep breathing exercises to assist with coping 8. Involve patient's in store marketing representative in care Outcome: Progressing Note: Evaluation [...] hydration as ordered 5. Instruct patient/ legal in store marketing representative on nutrition/diet; fluid/hydration restrictions as appropriate Outcome: Progressing Note: Evaluation of progress towards goal: electrolytes continue to need replacement at this time. [facility] [id number] History of Present illness Narrative* AMEENA Vallejo - 12/03/2023 4:23 PM EDT Patient's insurance not accepted over [facility]. Referral sent to [facility] who reportedly cannotsee her until . Spoke with patient who requested a referral be sent to [facility]. AMEENA Vallejo 12/03/23 8206 documented in this encounterR[facility]10[facility] Consult note* Shanon Joe MD - 12/03/2023 4:08 PM EDTAssociated Order(s): IP CONSULT TO CARDIOLOGY Reason for consult: Abnormal ECG History of present illness: The patient is a 53-year-old woman. [facility] She reports having fevers and feeling unwell. She has been undergoing treatmentfor breast cellulitis. She denies any chest discomfort or dyspnea. She has no palpitations. She normally follows with Dr. Clint Bazan of [facility] Allergies: Meperidine, daptomycin, adhesive Medications: [...] cell count 5.8, hemoglobin 8.0, platelet count [id number]. Sodium 137, potassium 3.1,chloride 104, bicarb 25, [...] patient will follow up with her primary medical oncology physician Dr. Clint Bazan. [employer] Work Phone: 1(477) 648-904210-03-2024 Consult note* Shanon Joe MD - 12/03/2023 4:08 PM EDTAssociated Order(s): IP CONSULT TO CARDIOLOGY Reason for consult: Abnormal ECG History of present illness: The patient is a 53-year-old woman. She was admitted to [facility] December 03, 2023. She reports having fevers and feeling unwell. She has been undergoing treatmentfor breast cellulitis. She denies any chest discomfort or dyspnea. She has no palpitations. She normally follows with Dr. Clint Bazan of [facility] Allergies: Meperidine, daptomycin, adhesive Medications: [...] cell count 5.8, hemoglobin 8.0, platelet count [id number]. Sodium 137, potassium 3.1,chloride 104, bicarb 25, [...] patient will follow up with her primary medical oncology physician Dr. Clint Bazan. * Carlene Noguera MD - 12/03/2023 2:03 PM EDTAssociated Order(s): IP CONSULT TO INFECTIOUS DISEASES Images from the original note were not included. [facility] - Initial Consult Note Ike Flannery Admit date/time 12/02/2023 9:55 PM Today's Date and Time: 12/03/2023, 2:03 PM Impression: Left breast cellulitis Postop infection of left breast tissue battery parts assembler-culture growing acid-fast bacilli Acute kidney injury History [...] care Ambulatory referrals to Infectious Disease at [facility], [facility], [facility] have been placed for F/U acid-fast bacilli. Patient was notified by [facility] that she can not use her insurance over [employer] line. We will send referral per patient request to [facility]. Reason for consultation: Infection on IV antibiotics, established patient Chief complaint Postop problem History of Present Illness: Ike Flannery is a 53 y.o.-year-old female who was initially admitted on 12/02/2023. Patient presents to hospital with complaints fever, chills, and vomiting. Patient was recently admitted and discharged from [facility] after removal of infected tissue battery parts assembler. She was discharged home on Vancomycin and Ertapenem to continue tentatively until December 08. [facility] Last night, we were notified that creatinine was 2.56 and vanco trough 33. Patient also complaining nausea, fever, and chills and was advised to go to ER. Left breast cultures from previous admission are preliminarily growing acid-fast bacilli. Referralshave been made to [facility], and [facility] Infectious Disease for management/treatment. Per patient, [facility] notified her today and stated they cannot accept her insurance. [facility] cannot see her until December or January. Will place referral to [facility] per patient request. Patient states she feels better today with no further nausea or vomiting.. WBC stable. Denies any cough or shortness of breath. Pain is stable I have personally reviewed the past medical history, past surgical history, medications, social history, and family history, and I have updated the database accordingly. Past Medical History: Past Medical History: Diagnosis Date Breast cancer ([facility]) 2023 mammary carcinoma Deep vein thrombosis ([facility]) 09/18/2023 Left calf Hypertension Knee pain PONV (postoperative nausea and vomiting) Port-A-Cath in place 05/13/2023 Visual impairment Glasses Past Surgical History: Past Surgical History: Procedure Laterality Date ARTHROSCOPIC REPAIR ACL Right 2006 ARTHROSCOPIC REPAIR ACL Left 08/26/2021 BREAST BIOPSY Right 2023 mammary carcinoma EXCISION LYMPH NODE AXILLARY DISSECTION Right 10/28/2023 Performed by Christy He MD at [facility] HYSTERECTOMY IMMEDIATE BREAST RECONSTRUCTION WITH TISSUE COMPENSATION INTERN PLACEMENT Bilateral 10/28/2023 Performed by Jhon Rosado MD at [facility] INCISION DRAINAGE BREAST Left 11/27/2023 Performed by Jhon Rosado MD at [facility] MAGNETIC SEED LOCALIZATION EXCISION/BIOPSY MASS BREAST (MAG SEED LOCALIZED TARGETED DISSECTION FOR RETRIEVAL OF PREVIOUSLY CLIPPED LYMPH NODE) Right 10/28/2023 Performed by Christy He MD at [facility] MASTECTOMY BREAST SIMPLE RISK REDUCING SKIN SPARING Left 10/28/2023 Performed by Christy He MD at [facility] MASTECTOMY BREAST SIMPLE SKIN SPARING Right 10/28/2023 Performed by Christy He MD at [facility] MENISCECTOMY Bilateral 2022 PORTACATH PLACEMENT Left left chest REMOVAL COMPENSATION INTERN TISSUE BREAST Left 11/27/2023 Performed by Jhon Rosado MD at [facility] RIGHT AXILLARY PROPHYLACTIC BYPASS LYMPHOVENOUS Right 10/28/2023 Performed by Jhon Rosdao MD at [facility] TONSILLECTOMY AND ADENOIDECTOMY Age 3 [...] 60 min Stress: Stress Concern Present (02/27/2022) [employer] [employer] - Occupational Stress Questionnaire Feeling of Stress : To some extent Social Connections: Socially Integrated (02/27/2022) Social Connection and Isolation Panel [NHANES] Frequency of Communication with Friends and Family: Twice a week Frequency of Social Gatherings with Friends and Family: Three times a week Attends Sabianism Services: More than 4 times per year [...] Procedure Component Value Units Date/Time Urine culture [[id number]] Collected: 12/02/23 2341 Specimen: Urine Updated: 12/03/2329 Blood culture [[id number]] Collected: 12/02/232235 Specimen: Blood, Peripheral Draw Updated: 12/02/232235 Blood culture [[id number]] Collected: 12/02/232235 Specimen: Blood, Peripheral Draw Updated: 12/02/232235 Anaerobic culture [[id number]] Collected: 11/27/23 154 Specimen: Body Fluid from Breast, Left Updated: 12/02/23 0851 Specimen Notes SPECIMEN A Culture NO GROWTH 5 DAYS Fungal culture includes fungal smear [[id number]] Collected: 11/27/23 1548 Specimen: Body Fluid from Breast, Left Updated: 11/28/23 0702 Specimen Notes SPECIMEN A Fungal smear -- NO FUNGAL ELEMENTS SEEN ON DIRECT SMEAR Culture PENDING AFB culture concentrated includes AFB smear [[id number]] (Abnormal) Collected: 11/27/23 1548 Specimen: Body Fluid from Breast, Left Updated: 12/01/23 1056 Specimen Notes SPECIMEN A AFB Smear NO ACID FAST BACILLI (CONCENTRATED SMEAR) Culture ACID FAST BACILLI ISOLATED Aspirate culture includes gram stain [[id number]] (Abnormal) Collected: 11/27/23 1548 Specimen: Aspirate Atr Updated: 12/01/23 1544 Specimen Notes SPECIMEN A Gram Stain Result >25 WHITE BLOOD CELLS/LPF 0 SQUAMOUS EPITHELIAL CELLS/LPF NO ORGANISMS SEEN Culture MODERATE ACID FAST BACILLI ISOLATED REPORT UPDATED GROWTH OBSERVED AT 48 HOURS Mrsa Pcr nasal swab [[id number]] Collected: 11/27/23 0020 Specimen: Nasal Updated: 11/27/23 0957 Mrsa PCR Negative Blood culture [[id number]] Collected: 11/26/23 1715 Specimen: Blood Updated: 12/01/232007 Culture NO GROWTH 5 DAYS Imaging Studies: No results found. Gino Munguia APRN [facility] [phone] Thank you for allowing us to participate in the care of this patient. Please call with questions. Gino Munguia APRN-[facility] 12/03/23 1419 ICarlene MD, personally performed [id number] diagnostic evaluation on this patient I reviewed and performed all the ross component of the patient visit I reviewed CELINA history, exam and MDM - Carlene Noguera MD 12/03/23 3:19 PM * Epifanio Henry MD - 12/03/2023 12:13 PM EDTAssociated Order(s): Consult Nephrology Images from the original note were not included. Consult Nephrology Consult performed by: Epifanio Henry MD Consult ordered by: Chris Hollis PA-C NEPHROLOGY CONSULT NOTE Date of Admission: 12/02/2023 9:55 PM Reason for Consult: Acute kidney injury Referring Provider: Chris Hollis PA-C PCP: AMEENA GARCIA Chief Complaint: Fevers History of Present Illness: Ike Flannery is a 53 y.o. female who presented with the above chief complaint. The patient was recently discharged from the hospital after removal of breast battery parts assembler secondary to infection. She was discharged on [...] except for the removal of the breast battery parts assembler and the IV antibiotics for the infection. [...] seroma status post removal of left breast battery parts assembler on November 27, 2023 Hypertension Edema Depression/anxiety [...] 60 min Stress: Stress Concern Present (02/27/2022) [place] [employer] - Occupational Stress Questionnaire Feeling of Stress : To some extent Social Connections: Socially Integrated (02/27/2022) Social Connection and Isolation Panel [NHANES] Frequency of Communication with Friends and Family: Twice a week Frequency of Social Gatherings with Friends and Family: Three times a week Attends Sabianism Services: More than 4 times per year [...] last 7 days Lab Units 12/03/23 03512/02/23 2305 12/02/23 2213 TOTAL PROTEIN g/dL 5.5* -- 6.4 ALBUMIN g/dL 3.3 -- 3.8 AST U/L 19 -- 24 ALT U/L 10 -- 12 TOTAL BILIRUBIN mg/dL 0.6 -- 0.6 BILIRUBIN, URINE -- Negative -- ALK PHOS U/L 60 -- 69 Results from last 7 days Lab Units 12/03/23 03512/02/23221211/30/23 0930 11/27/23 0545 WBC X10E9/L 5.8 7.8 [...] to participate in the care of Ike Flannery and please do not hesitate to call us with any questions at: Office: [phone] Office Answering Service: [phone] Epifanio Henry M.D. This note was created with the assistance of a speech-recognition program. Although the intention is to generate a document that actually reflects the content of the visit, no guarantees can be provided that every mistake has been identified and corrected by editing. documented in this encounterR[facility]10-[facility] Consult note* Carleen Noguera MD - 12/03/2023 2:03 PM EDTAssociated Order(s): IP CONSULT TO INFECTIOUS DISEASES Images from the original note were not included. [facility] - Initial Consult Note Ike Flannery Admit date/time 12/02/2023 9:55 PM Today's Date and Time: 12/03/2023, 2:03 PM Impression: Left breast cellulitis Postop infection of left breast tissue battery parts assembler-culture growing acid-fast bacilli Acute kidney injury History [...] care Ambulatory referrals to Infectious Disease at [facility], [facility], [facility] have been placed for F/U acid-fast bacilli. [facility] [facility] that she can not use her insurance over [facility]. We will send referral per patient request to [facility]. Reason for consultation: Infection on IV antibiotics, established patient Chief complaint Postop problem History of Present Illness: Ike Flannery is a 53 y.o.-year-old female who was initially admitted on 12/02/2023. Patient presents to hospital with complaints fever, chills, and vomiting. Patient was recently admitted and discharged from [facility] after removal of infected tissue battery parts assembler. She was discharged home on Vancomycin and Ertapenem to continue tentatively until December 08. Patient was seen at [facility] for lab draw. Last night, we were notified that creatinine was 2.56 and vanco trough 33. Patient also complaining nausea, fever, and chills and was advised to go to ER. Left breast cultures from previous admission are preliminarily growing acid-fast bacilli. Referralshave been made to [facility], [facility], and [facility] Infectious Disease for management/treatment. Per patient, [facility] notified her today and stated they cannot accept her insurance. [facility] cannot see her until December or January. Will place referral to [facility] per patient request. Patient states she feels better today with no further nausea or vomiting.. WBC stable. Denies any cough or shortness of breath. Pain is stable I have personally reviewed the past medical history, past surgical history, medications, social history, and family history, and I have updated the database accordingly. Past Medical History: Past Medical History: Diagnosis Date Breast cancer ([facility]) 2023 mammary carcinoma Deep vein thrombosis ([facility]) 09/18/2023 Left calf Hypertension Knee pain PONV (postoperative nausea and vomiting) Port-A-Cath in place 05/13/2023 Visual impairment Glasses Past Surgical History: Past Surgical History: Procedure Laterality Date ARTHROSCOPIC REPAIR ACL Right 2006 ARTHROSCOPIC REPAIR ACL Left 08/26/2021 BREAST BIOPSY Right 2023 mammary carcinoma EXCISION LYMPH NODE AXILLARY DISSECTION Right 10/28/2023 Performed by Christy He MD at [facility] HYSTERECTOMY IMMEDIATE BREAST RECONSTRUCTION WITH TISSUE COMPENSATION INTERN PLACEMENT Bilateral 10/28/2023 Performed by Jhon Rosado MD at [facility] INCISION DRAINAGE BREAST Left 11/27/2023 Performed by Jhon Rosado MD at [facility] MAGNETIC SEED LOCALIZATION EXCISION/BIOPSY MASS BREAST (MAG SEED LOCALIZED TARGETED DISSECTION FOR RETRIEVAL OF PREVIOUSLY CLIPPED LYMPH NODE) Right 10/28/2023 Performed by Christy He MD at [facility] MASTECTOMY BREAST SIMPLE RISK REDUCING SKIN SPARING Left 10/28/2023 Performed by Christy He MD at [facility] MASTECTOMY BREAST SIMPLE SKIN SPARING Right 10/28/2023 Performed by Christy He MD at [facility] MENISCECTOMY Bilateral 2022 PORTACATH PLACEMENT Left left chest REMOVAL COMPENSATION INTERN TISSUE BREAST Left 11/27/2023 Performed by Jhon Rosado MD at [facility] RIGHT AXILLARY PROPHYLACTIC BYPASS LYMPHOVENOUS Right 10/28/2023 Performed by Jhon Rosado MD at [facility] TONSILLECTOMY AND ADENOIDECTOMY Age 3 [...] 60 min Stress: Stress Concern Present (02/27/2022) [place] [employer] - Occupational Stress Questionnaire Feeling of Stress : To some extent Social Connections: Socially Integrated (02/27/2022) Social Connection and Isolation Panel [NHANES] Frequency of Communication with Friends and Family: Twice a week Frequency of Social Gatherings with Friends and Family: Three times a week Attends Sabianism Services: More than 4 times per year [...] Procedure Component Value Units Date/Time Urine culture [[id number]] Collected: 12/02/23 234 Specimen: Urine Updated: 12/03/23828 Blood culture [[id number]] Collected: 12/02/232235 Specimen: Blood, Peripheral Draw Updated: 12/02/232235 Blood culture [[id number]] Collected: 12/02/232235 Specimen: Blood, Peripheral Draw Updated: 12/02/232235 Anaerobic culture [[id number]] Collected: 11/27/23 1548 Specimen: Body Fluid from Breast, Left Updated: 12/02/23 0851 Specimen Notes SPECIMEN A Culture NO GROWTH 5 DAYS Fungal culture includes fungal smear [[id number]] Collected: 11/27/23 1548 Specimen: Body Fluid from Breast, Left Updated: 11/28/23 0702 Specimen Notes SPECIMEN A Fungal smear -- NO FUNGAL ELEMENTS SEEN ON DIRECT SMEAR Culture PENDING AFB culture concentrated includes AFB smear [[id number]] (Abnormal) Collected: 11/27/23 1548 Specimen: Body Fluid from Breast, Left Updated: 12/01/23 1056 Specimen Notes SPECIMEN A AFB Smear NO ACID FAST BACILLI (CONCENTRATED SMEAR) Culture ACID FAST BACILLI ISOLATED Aspirate culture includes gram stain [[id number]] (Abnormal) Collected: 11/27/23 1548 Specimen: Aspirate Atr Updated: 12/01/23 1544 Specimen Notes SPECIMEN A Gram Stain Result >25 WHITE BLOOD CELLS/LPF 0 SQUAMOUS EPITHELIAL CELLS/LPF NO ORGANISMS SEEN Culture MODERATE ACID FAST BACILLI ISOLATED REPORT UPDATED GROWTH OBSERVED AT 48 HOURS Mrsa Pcr nasal swab [[id number]] Collected: 11/27/23 0020 Specimen: Nasal Updated: 11/27/23 0957 Mrsa PCR Negative Blood culture [[id number]] Collected: 11/26/23 1715 Specimen: Blood Updated: 12/01/23 2008 Culture NO GROWTH 5 DAYS Imaging Studies: No results found. Gino Munguia APRN, [facility] [phone] Thank you for allowing us to participate in the care of this patient. Please call with questions. Gino Munguia APRN-[facility] 12/03/23 8919 Carlene Landon MD, personally performed [id number] diagnostic evaluation on this patient I reviewed and performed all the ross component of the patient visit I reviewed CELINA history, exam and MDM - Carlene Noguera MD 12/03/23 3:19 PM [facility]10-03-2024 Consult note* Epifanio Henry MD - 12/03/2023 12:13 PM EDTAssociated Order(s): Consult Nephrology Images from the original note were not included. Consult Nephrology Consult performed by: Epifanio Henry MD Consult ordered by: Chris Hollis PA-C NEPHROLOGY CONSULT NOTE Date of Admission: 12/02/2023 9:55 PM Reason for Consult: Acute kidney injury Referring Provider: Chris Hollis PA-C PCP: AMEENA GARCIA Chief Complaint: Fevers History of Present Illness: Ike Flannery is a 53 y.o. female who presented with the above chief complaint. The patient was recently discharged from the hospital after removal of breast battery parts assembler secondary to infection. She was discharged on [...] except for the removal of the breast battery parts assembler and the IV antibiotics for the infection. [...] seroma status post removal of left breast battery parts assembler on November 27, 2023 Hypertension Edema Depression/anxiety [...] 60 min Stress: Stress Concern Present (02/27/2022) [place] [employer] - Occupational Stress Questionnaire Feeling of Stress : To some extent Social Connections: Socially Integrated (02/27/2022) Social Connection and Isolation Panel [NHANES] Frequency of Communication with Friends and Family: Twice a week Frequency of Social Gatherings with Friends and Family: Three times a week Attends Sabianism Services: More than 4 times per year [...] ALBUMIN g/dL 3.3 -- 3.8 AST U/L 19 -- 24 ALT U/L 10 -- 12 [...] to participate in the care of Ike Flannery and please do not hesitate to call us with any questions at: Office: [phone] Office Answering Service: [phone] Epifanio Henry M.D. This note was created with the assistance of a speech-recognition program. Although the intention is to generate a document that actually reflects the content of the visit, no guarantees can be provided that every mistake has been identified and corrected by editing. [facility]10-03-2024 Progress note* Discharge Planning Note - Heike Anderson - 12/03/2023 9:59 AM EDT DISCHARGE PLANNING NOTE Referral to [facility], [facility] [employer] [facility] [employer]- [place], [place] [facility] - (P# ; F# ) [facility]10-03-2024 Progress note* Discharge Planning Note - Mariah Starr RN - 12/03/2023 9:16 AM EDT DISCHARGE PLANNING NOTE Sediment Remediation Consultant met with patient and at bedside, introduced self, and explained role. Patient educated on safe discharge plan. Pt admitted 12/02/2023 with MIRNA (acute kidney injury) ([facility]) [N17.9] per chart review. Patient lives with [...] - Vanco/Ertapenum at home thru [facility] with [facility] drawing labs three days a week and weekly port dressing changes. Patient denies need for transportation/ food/ prescription medication assistance resources. PCP: RICHIE HANNA APRN-YOGHURT MAKER Pharmacy:[facility] [place] PCP and pharmacy confirmed with patient. CN offered to assist with follow up appointment arrangements, patient declined need. Current discharge plan is: home with IV antibiotics Task sent to [facility] to send referral to [facility]. Will continue to follow as plan of care develops. CN discussed benefits and importance of medication compliance and follow ups. - MARIAH STARR RN 12/03/23 9:16 AM [facility]10-03-2024 Plan of care note* Plan of Care - Shanice Hogan RN - 12/03/2023 1:08 AM EDT Problem: Low Risk Fall Score Description: Pickens Fall Score of 0 - 24 or indicated by [facility] Assessment Goal: Patient should be free from fall Description: Interventions: 1. Champion to environment 2. Hourly rounds addressing the [...] non-skid footwear 11. Teach patient and patient in store marketing representative to maintain environment for safety and [...] Description: INTERVENTIONS: 1. Encourage patient or legal in store marketing representative to report early pain and ask [...] per policy 9. Teach patient or legal in store marketing representative interventions for comforting Outcome: Progressing Note: [...] at the bedside 7. Instruct patient/ patient in store marketing representative about use of safety devices 8. Include patient/ patient in store marketing representative in decisions related to safety Outcome: [...] hygiene technique 7. Identify and instruct patient/patient in store marketing representative in use of appropriate isolation precautionsfor identified infection/symptoms 8. Provide and discuss with patient/patient in store marketing representative on educational MDRO sheet 9. Encourage and monitor nutritional status daily and consult lan/wan engineer if indicated 10. Implement neutropenic guidelines as needed 11. Review exposure to history of communicable disease and recent travel history on admission 12. Encourage annual influenza vaccine 13. Encourage pneumonia vaccine Outcome: Progressing Note: Evaluation of progress towards goal: Afebrile, labs and VS monitored Problem: Knowledge Deficit Goal: Patient/patient in store marketing representative demonstrates understanding of disease process, treatment [...] Collaborate with ancillary departments 14. Include patient/patient in store marketing representative in decisions related to anxiety Outcome: [...] providing care 6. Collaborate with pastoral/spiritual care, social work assistant, mental health counselor as needed. 7. Instruct patient on diversional activities such as physical activity, distraction, and deep breathing exercises to assist with coping 8. Involve patient's in store marketing representative in care Outcome: Progressing Note: Evaluation [...] hydration as ordered 5. Instruct patient/ legal in store marketing representative on nutrition/diet; fluid/hydration restrictions as appropriate Outcome: Progressing Note: Evaluation of progress towards goal: Display of normal lab values. Electrolytes are replaced as needed. [facility]10-03-2024 History and physical note* Elayne Chow MD - 12/03/2023 12:25 AM EDT Images from the original note were not included. [facility]IC[facility] -EMERGENCY DEPT [address] [place] [id number] Hospital Medicine History & Physical Patient: Ike Flannery Date of : 1970 Room: ED PCP: AMEENA GARCIA Admission date: 12/02/2023 9:55 PM Encounter date: 12/02/23 Hospital Day: 1 SUBJECTIVE Ike Flannery is a 53 y.o. female who presents [...] taking: Reported on 10/28/2023 03/07/22 Richie Hanna APRN-YOGHURT MAKER capecitabine (XELODA) 500 mg chemo tablet Take by mouth after surgery Patient not taking: Reported on 10/16/2023 10/13/23 Not In System Ref Prov chlorthalidone (HYGROTON) 25 mg tablet Take 0.5 tablets (12.5 mg total) by mouth daily. 03/03/23 Not In System Ref Prov cyclobenzaprine (FLEXERIL) 10 mg tablet TAKE ONE TABLET BY MOUTH ONCE DAILY IN THE EVENING 04/28/23 Kaye Manuel, LINE DRIVER-COMMUNITY OUTREACH DIRECTOR dexAMETHasone (DECADRON) 1 mg tablet TAKE ONE TABLET BY MOUTH TWICE A DAY ON DAYS 3-6 AFTER CHEMOTHERAPY FOR FATIGUE Patient not taking: Reported on 10/16/2023 04/21/23 Not In System Ref Prov diazePAM (VALIUM) 5 mg tablet Take 1 tablet (5 mg total) by mouth every 6 (six) hours as needed formuscle spasms. 11/11/23 Marisela Cuevas, LINE DRIVER-YOGHURT MAKER DULoxetine (CYMBALTA) 30 mg capsule Take 1 [...] catheter daily for 10 days. 11/29/23 12/09/23 AMEENA Gomez ferrous sulfate 325 (65 FE) mg tablet Take 1 tablet (325 mg total) by mouth in the morning. Patient not taking: Reported on 07/30/2023 03/07/22 AMEENA Garcia fluticasone propionate (FLONASE) 50 mcg/actuation nasal spray [...] MOUTH ONCE DAILY AT NIGHT 09/15/23 AMEENA Garcia vancomycin 1,500 mg in sodium chloride 0.9 % 500 mL IVPB Infuse 1,500 mg into a venous catheter every 12 (twelve) hours for 10 days. 11/29/23 12/09/23 AMEENA Gomez Past Medical History: Patient has a past medical history of Breast cancer ([facility]) (2023), Deep vein thrombosis ([facility]) (09/18/2023), Hypertension, Knee pain, PONV (postoperative nausea [...] excision (Right, 10/28/2023); Mastectomy (Left, 10/28/2023); Tissue battery parts assembler placement (Bilateral, 10/28/2023); Lymph node dissection (Right, 10/28/2023); Tissue battery parts assembler removal (Left, 11/27/2023); and Incision and drainage [...] data in the 24 hours ending 12/02/23 0102 Physical Exam Constitutional: General: Not in acute distress. Appearance: Normal appearance and is well-developed. HENT: Head: Normocephalic and atraumatic. Right Ear: External ear normal. Left Ear: External ear normal. Nose: Nose normal. Mouth/Throat: Lips: [place]. Eyes: General: No scleral icterus. Extraocular Movements: [...] LIST Principal Problem: MIRNA (acute kidney injury) ([facility]) ASSESSMENT & PLAN Acute kidney injury, possibly [...] DC planning: home pending clinical course. CHRIS HOLLIS PA-C 12/03/2023 12:26 AM [facility] 7AM-7PM (all facilities): EpicChat or page through Solstice[employer]. 7PM-7AM ([facility], [facility] Psychiatry and Inpatient Rehab): EpicChat or page, [phone]. 7PM-7AM ([facility] [place], [place], [facility] and [facility] Rehab): EpicChat or page through Vocera. Chris Hollis PA-C 12/03/23 0025 Chris Hollis PA-C 12/03/23 0026 Physician Attestation I personally [...] ID and Nephrology input. Elayne Chow MD [facility]10-03-2024 History and physical note* Elayne Chow MD - 12/03/2023 12:25 AM EDT Images from the original note were not included. [facility] -EMERGENCY DEPT [address] [place] [phone] Hospital Medicine History & Physical Patient: Ike Flannery Date of : 1970 Room: ED PCP: AMEENA GARCIA Admission date: 12/02/2023 9:55 PM Encounter date: 12/02/23 Hospital Day: 1 SUBJECTIVE Ike Flannery is a 53 y.o. female who presents [...] not taking: Reported on 10/28/2023 03/07/22 Richie Hanna, LINE DRIVER-YOGHURT MAKER capecitabine (XELODA) 500 mg chemo tablet Take by mouth after surgery Patient not taking: Reported on 10/16/2023 10/13/23 Not In System Ref Prov chlorthalidone (HYGROTON) 25 mg tablet Take 0.5 tablets (12.5 mg total) by mouth daily. 03/03/23 Not In System Ref Prov cyclobenzaprine (FLEXERIL) 10 mg tablet TAKE ONE TABLET BY MOUTH ONCE DAILY IN THE EVENING 04/28/23 Kaye Manuel, LINE DRIVER-COMMUNITY OUTREACH DIRECTOR dexAMETHasone (DECADRON) 1 mg tablet TAKE ONE TABLET BY MOUTH TWICE A DAY ON DAYS 3-6 AFTER CHEMOTHERAPY FOR FATIGUE Patient not taking: Reported on 10/16/2023 04/21/23 Not In System Ref Prov diazePAM (VALIUM) 5 mg tablet Take 1 tablet (5 mg total) by mouth every 6 (six) hours as needed formuscle spasms. 11/11/23 AMEENA Kennedy DULoxetine (CYMBALTA) 30 mg capsule Take 1 [...] catheter daily for 10 days. 11/29/23 12/09/23 AMEENA Gomez ferrous sulfate 325 (65 FE) mg tablet Take 1 tablet (325 mg total) by mouth in the morning. Patient not taking: Reported on 07/30/2023 03/07/22 AMEENA Garcia fluticasone propionate (FLONASE) 50 mcg/actuation nasal spray [...] MOUTH ONCE DAILY AT NIGHT 09/15/23 AMEENA Garcia vancomycin 1,500 mg in sodium chloride 0.9 % 500 mL IVPB Infuse 1,500 mg into a venous catheter every 12 (twelve) hours for 10 days. 11/29/23 12/09/23 AMEENA Gomez Past Medical History: Patient has a past medical history of Breast cancer ([facility]) (2023), Deep vein thrombosis ([facility]) (09/18/2023), Hypertension, Knee pain, PONV (postoperative nausea [...] excision (Right, 10/28/2023); Mastectomy (Left, 10/28/2023); Tissue battery parts assembler placement (Bilateral, 10/28/2023); Lymph node dissection (Right, 10/28/2023); Tissue battery parts assembler removal (Left, 11/27/2023); and Incision and drainage [...] data in the 24 hours ending 12/02/23 1178 Physical Exam Constitutional: General: Not in acute distress. Appearance: Normal appearance and is well-developed. HENT: Head: Normocephalic and atraumatic. Right Ear: External ear normal. Left Ear: External ear normal. Nose: Nose normal. Mouth/Throat: Lips: [place]. Eyes: General: No scleral icterus. Extraocular Movements: [...] LIST Principal Problem: MIRNA (acute kidney injury) ([facility]) ASSESSMENT & PLAN Acute kidney injury, possibly [...] DC planning: home pending clinical course. CHRIS HOLLIS PA-C 12/03/2023 12:26 AM [facility] 7AM-7PM (all facilities): EpicChat or page through Vocera. 7PM-7AM ([facility], [facility] Psychiatry and Inpatient Rehab): EpicChat or page, [phone]. 7PM-7AM ([facility] [place], [place], [facility] and [facility] Rehab): EpicChat or page through Vocera. Chris Hollis PA-C 12/03/23 0025 Chris Hollis PA-C 12/03/23 0026 Physician Attestation I personally [...] input. Elayne Chow MD [facility] Phys[facility] Emergency department Note* Kayleigh Adames, - [...] chills and was sent by infectious disease [facility]ight Inital Evaluation by Dr. Adames at 10:13 [...] to drink water. 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 by: Patient j2ee engineer used?: No Problem List Items Addressed This Visit None Past Medical History: Diagnosis Date Breast cancer (CMS-HCC) 2023 mammary carcinoma Deep vein thrombosis (CMS-HCC) 09/18/2023 Left calf Hypertension Knee pain PONV (postoperative nausea and vomiting) Port-A-Cath in place 05/13/2023 Visual impairment Glasses Past Surgical History: Procedure Laterality Date ARTHROSCOPIC REPAIR ACL Right 2006 ARTHROSCOPIC REPAIR ACL Left 08/26/2021 BREAST BIOPSY Right 2023 mammary carcinoma EXCISION LYMPH NODE AXILLARY DISSECTION Right 10/28/2023 Performed by Christy He MD at [facility] HYSTERECTOMY IMMEDIATE BREAST RECONSTRUCTION WITH TISSUE COMPENSATION INTERN PLACEMENT Bilateral 10/28/2023 Performed by Jhon Rosado MD at [facility] INCISION DRAINAGE BREAST Left 11/27/2023 Performed by Jhon Rosado MD at [facility] MAGNETIC SEED LOCALIZATION EXCISION/BIOPSY MASS BREAST (MAG SEED LOCALIZED TARGETED DISSECTION FOR RETRIEVAL OF PREVIOUSLY CLIPPED LYMPH NODE) Right 10/28/2023 Performed by Christy He MD at [facility] MASTECTOMY BREAST SIMPLE RISK REDUCING SKIN SPARING Left 10/28/2023 Performed by Christy He MD at [facility] MASTECTOMY BREAST SIMPLE SKIN SPARING Right 10/28/2023 Performed by Christy He MD at [facility] MENISCECTOMY Bilateral 2022 PORTACATH PLACEMENT Left left chest REMOVAL COMPENSATION INTERN TISSUE BREAST Left 11/27/2023 Performed by Jhon Rosado MD at [facility] RIGHT AXILLARY PROPHYLACTIC BYPASS LYMPHOVENOUS Right 10/28/2023 Performed by Jhon Rosado MD at [facility] TONSILLECTOMY AND ADENOIDECTOMY Age 3 [...] of 12/09/23 1236 MIRNA (acute kidney injury) ([facility]) Infection of deep incisional surgical site after procedure, initial encounter 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 Adames. Chart Reviewed. Date: [...] bolus (1,000 mL intravenous New Bag 12/02/23 1594) Medication List None Diagnosis: 1. MIRNA (acute kidney injury) ([facility]) Disposition: Patient's disposition: Admit Patient's condition is stable. Critical Care time: Provider Statement By electronically signing this emergency patient record, the Emergency Physician/ADVERTISING SALES CONSULTANT/PA-C attests that all entries made into the electronic medical record by annamarie Pak prior to the Physician/ADVERTISING SALES CONSULTANT/PA-C signature reflect an accurate accounting of the evaluation and care rendered by that Malini lara Physician/ADVERTISING SALES CONSULTANT/PA-C. The Emergency Physician/ADVERTISING SALES CONSULTANT/PA-C assumes full responsibility for those entries. The Emergency Physician/ADVERTISING SALES CONSULTANT/PA-C also attests that any patient testing or treatment that was instituted by nursing staff in accordance to Emergency Department Preemptive Guidelines have been reviewed and unless so stated elsewhere in this patient chart, the Physician/ADVERTISING SALES CONSULTANT/PA-C agrees with the testing and care provided. Provider Statement: By electronically signing this emergency patient record, the Emergency Physician/ADVERTISING SALES CONSULTANT/PA-C attests that all entries made into the electronic medical record by the scribe prior to the Physician/ADVERTISING SALES CONSULTANT/PA-C signature reflect an accurate accounting of the evaluation and care rendered by that Emergency Physic milagro/ADVERTISING SALES CONSULTANT/PA-C. The Emergency Physician/ADVERTISING SALES CONSULTANT/PA-C assumes full responsibility for those entries. Jeff Becker 12/02/23 222 Jeff Becker 12/02/23 230 Kayleigh Adames DO 12/05/23 2359 [facility]10-[facility]24 Emergency department Note* Kayleigh Adames DO - [...] chills and was sent by infectious disease [facility]ight Inital Evaluation by Dr. Adames at 10:13 [...] to drink water. 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 by: Patient j2ee engineer used?: No Problem List Items Addressed This Visit None Past Medical History: Diagnosis Date Breast cancer ([facility]) 2023 mammary carcinoma Deep vein thrombosis ([facility]) 09/18/2023 Left calf Hypertension Knee pain PONV (postoperative nausea and vomiting) Port-A-Cath in place 05/13/2023 Visual impairment Glasses Past Surgical History: Procedure Laterality Date ARTHROSCOPIC REPAIR ACL Right 2006 ARTHROSCOPIC REPAIR ACL Left 08/26/2021 BREAST BIOPSY Right 2023 mammary carcinoma EXCISION LYMPH NODE AXILLARY DISSECTION Right 10/28/2023 Performed by Christy He MD at [facility] HYSTERECTOMY IMMEDIATE BREAST RECONSTRUCTION WITH TISSUE COMPENSATION INTERN PLACEMENT Bilateral 10/28/2023 Performed by Jhon Rosado MD at [facility] INCISION DRAINAGE BREAST Left 11/27/2023 Performed by Jhon Rosado MD at [facility] MAGNETIC SEED LOCALIZATION EXCISION/BIOPSY MASS BREAST (MAG SEED LOCALIZED TARGETED DISSECTION FOR RETRIEVAL OF PREVIOUSLY CLIPPED LYMPH NODE) Right 10/28/2023 Performed by Christy He MD at [facility] MASTECTOMY BREAST SIMPLE RISK REDUCING SKIN SPARING Left 10/28/2023 Performed by Christy He MD at [facility] MASTECTOMY BREAST SIMPLE SKIN SPARING Right 10/28/2023 Performed by Christy He MD at [facility] MENISCECTOMY Bilateral 2022 PORTACATH PLACEMENT Left left chest REMOVAL COMPENSATION INTERN TISSUE BREAST Left 11/27/2023 Performed by Jhon Rosado MD at [facility] RIGHT AXILLARY PROPHYLACTIC BYPASS LYMPHOVENOUS Right 10/28/2023 Performed by Jhon Rosado MD at [facility] TONSILLECTOMY AND ADENOIDECTOMY Age 3 [...] Pulse Ox Sitting Right arm -- Vitals: 12/02/232141 BP: (!) 149/99 Temp: 37.3 C (99.1 [...] of 12/09/23 1236 MIRNA (acute kidney injury) ([facility]) Infection of deep incisional surgical site after procedure, initial encounter 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 Adames. Chart Reviewed. Date: [...] bolus (1,000 mL intravenous New Bag 12/02/23 6788) Medication List None Diagnosis: 1. MIRNA (acute kidney injury) ([facility]) Disposition: Patient's disposition: Admit Patient's condition is stable. Critical Care time: Provider Statement By electronically signing this emergency patient record, the Emergency Physician/ADVERTISING SALES CONSULTANT/INÉS attests that all entries made into the electronic medical record by annamarie Pak prior to the Physician/ADVERTISING SALES CONSULTANT/PA-C signature reflect an accurate accounting of the evaluation and care rendered by that [facility] Phys[facility]/ADVERTISING SALES CONSULTANT/PA-C. The Emergency Physician/ADVERTISING SALES CONSULTANT/PA-C assumes full responsibility for those entries. The Emergency Physician/ADVERTISING SALES CONSULTANT/PA-C also attests that any patient testing or treatment that was instituted by nursing staff in accordance to Emergency Department Preemptive Guidelines have been reviewed and unless so stated elsewhere in this patient chart, the Physician/ADVERTISING SALES CONSULTANT/PA-C agrees with the testing and care provided. Provider Statement: By electronically signing this emergency patient record, the Emergency Physician/ADVERTISING SALES CONSULTANT/PA-C attests that all entries made into the electronic medical record by the scribe prior to the Physician/ADVERTISING SALES CONSULTANT/PA-C signature reflect an accurate accounting of the evaluation and care rendered by that Emergency Physic milagro/ADVERTISING SALES CONSULTANT/PA-C. The Emergency Physician/ADVERTISING SALES CONSULTANT/PA-C assumes full responsibility for those entries. Jeff Becker 12/02/23 2221 Jeff Becker 12/02/23 2305 Kayleigh Adames DO 12/05/23 2359 documented in this encounterR[facility]10-[facility]24 History of Present illness Narrative* AMEENA Vallejo - 12/02/2023 9:25 PM EDT 1300: spoke with Purvi RENAE from [facility] who received call from [facility] RN to report Vanco level of 33. She stated that infusion center RN then infused patient's vancomycin. Reportedly, patient had brought her vanco dose with her when she went to infusion center to get labs drawn and asked RN at center to supervising architect her vanco while she was there. Purvi stated she called [facility] to speak with pharmacist regarding vanco trough and that the patient received vanco dose. I called RN at infusion center (John) and provided clinic fax number to send lab results. AMEENA Vallejo 12/02/232132 documented in this encounterRiverside [facility] Hospital10-02-2024 History of Present illness Narrative* AMEENA Salazar - 12/02/2023 7:30 PM EDT Patient calls [...] symptoms Patient is currently undergoing Rx with [facility] for left breast cellulitis and left breastinfected seroma Status post left breast I and D with removal of tissue battery parts assembler 11/27/2023 I have directed patient to the ER at this time for evaluation . Patient states she will report to [facility] ER Once she arrives to [facility] we would like the following: Consideration for admission Check Blood Cultures Check Creat Please contact our service for further direction ([facility], Dr Carlene Noguera) AMEENA Salazar 12/02/231940 documented in this encounterRiverside Methodist Hospital10-02-2024 Miscellaneous Notes* Telephone Encounter - Kendra Lewis - 12/02/2023 7:20 PM EDT Contract: 174 RE Chills, Nausea, Fever 100.9 * Telephone Encounter - Kendra Lewis - 12/02/2023 7:20 PM EDT Secure chat sent to Shanice Shook CNP documented in this encounterRiverside [facility] Hospital10-02-2024 Telephone encounter Note* Telephone Encounter - Kendra Lewis - 12/02/2023 7:20 PM EDT Contract: 174 RE Chills, Nausea, Fever 100.9 [facility] Telephone encounter Note* Telephone Encounter - Kendra Lewis - 12/02/2023 7:20 PM EDT Secure chat sent to Shanice Shook CNP [facility]10-02-[facility] History of Present illness Narrative* AMEENA Gomez - 12/02/2023 7:06 PM EDT Pt with increase to creatinine to 2.56 from this morning December 02 2023, previous level 0.62 fromSept2023 Vanco trough 33 from this morning December 02, 2023 at 8:30 a.m., I have confirmed level was drawn atthe correct time as last dose was administered at 2030 yesterday. Patient currently undergoing antibiotic course of treatment with ertapenem as well as vancomycin Both medications on hold Rechecking random vanco level, creatinine, WBC, platelets, creatinine and LFTs in a.m. Discussed with bio script pharmacist Zohra from [facility]. AMEENA Gomez 12/02/231916 documented in this encounterRiverside Methodist Hospital10-02-2024 History of Present illness Narrative* Jhon Rosado MD - 12/02/2023 10:00 AM EDT [facility] [address] Office Jhon Rosado MD, PhD AMEENA Kennedy PA-C Plastic Surgery Progress Note Reason for visit : 1 week postoperative appointment. History of present illness: Ike Flannery 53 y.o. is here today for a follow up after I&D of left breast with removal of left breast tissue battery parts assembler on 11/27/2023. She presents to the office [...] air. Follow up next week for tissue battery parts assembler filled. She was advised to call the office any questions orconcerns in the interim. - Marisela Cuevas APRN-YOGHURT MAKER 12/02/23 11:55 AM JHON Landon MD, PHD personally performed the face to face evaluation on this patient. I discussed with the patient and confirmed the accuracy and completeness of the aforementioned history,and I personally performed the clinical examination of the patient. I have established and discussed the course of treatment with the patient. Jhon Rosado MD, PhD [facility] Total time spent was 15 minutes: Preparing to see the patient (e.g., review of tests) Obtaining and/or reviewing separately obtained history Performing a medically appropriate examination and/or evaluation Counseling and educating the patient/family/caregiver Ordering medications, tests, or procedures Referring and communicating with other health landcare facilitator (not separately reported) Documenting clinical information in the electronic or other health record Independently interpreting results (not separately reported) and communicating results to the patient/family/caregiver Care coordination (not separately reported) Please note that portions of this note were generated using voice recognition M*Futuretec dictation software. Although every effort was made to ensure the accuracy of this automated ball mill operator, some errors in ball mill operator may have occurred. documented in this encounterRiverside Methodist Hospital10-02-2024 Miscellaneous Notes* Telephone Encounter - Elisa Vallejo [...] I and D with removal of tissue battery parts assembler 11/27/2023 Discharge Specialty: Infectious Disease *Name of Discharging Facility: [facility] Date of Facility Discharge: Admission 11/26/23 Discharge 11/30/23 Date of Interactive Contact and Name of Medical Radiation Dosimetrist: 12/02/23 1011 am Spoke to patient. She was at Dr. Barbosa office. Patient was agreeable for headline writer to call back in the afternoon 12/02/23 [...] pain and SOB. Patient is going to [facility] three days a week for dressing [...] by the Patient: NA documented in this encounterRiverside [facility] Hospital10-02-2024 Telephone encounter Note* Telephone Encounter - Elisa [...] I and D with removal of tissue battery parts assembler 11/27/2023 Discharge Specialty: Infectious Disease *Name of Discharging Facility: [facility] Date of Facility Discharge: Admission 11/26/23 Discharge 11/30/23 Date of Interactive Contact and Name of Medical Radiation Dosimetrist: 12/02/23 1011 am Spoke to patient. She was at Dr. Barbosa office. Patient was agreeable for headline writer to call back in the afternoon 12/02/23 [...] concerns *Follow Up Appointments with Providers: Primary: AMEENA GARCIA Specialty: Infectious Disease 12/08/23 Specialty: Specialty: Review [...] pain and SOB. Patient is going to [facility] three days a week for dressing [...] Other Services Utilized/Needed by the Patient: NA [facility]09-[facility] History of Present illness Narrative* Jhon Rosado MD - 11/26/2023 11:45 AM EDT [facility] [address] Office Jhon Rosado MD, PhD Marisela Cuevas, LINE DRIVER-YOGHURT MAKER Shereen Smallwood PA-C Plastic Surgery Progress Note Reason for visit : wound check. History of present illness: Ike Flannery 53 y.o. is here today for a [...] possible infected seroma in the setting tissue battery parts assembler reconstruction Recommendations: discussed with patient that given the appearance of her breast we would like to becautious and admit her to the hospital for IV antibiotics. Discussed that we have a suspicion for infection. We discussed that we would like to proceed with removal of her tissue battery parts assembler tomorrow and place a drain. We discussed since she does need post operative radiation that we would not want toplace a new tissue battery parts assembler. Direct admission has been started. Please note that portions of this note were generated using voice recognition H[employer]*Futuretec dictation software. Although every effort was made to ensure the accuracy of this automated ball mill operator, some errors in ball mill operator may have occurred. I, JHON ROSADO MD, PHD personally performed the face to face evaluation on this patient. I discussed with the patient and confirmed the accuracy and completeness of the aforementioned history,and I personally performed the clinical examination of the patient. I have established and discussed the course of treatment with the patient. Jhon Rosado MD, PhD [facility] Total time spent was 25 minutes: Preparing to see the patient (e.g., review of tests) Obtaining and/or reviewing separately obtained history Performing a medically appropriate examination and/or evaluation Counseling and educating the patient/family/caregiver Ordering medications, tests, or procedures Referring and communicating with other health landcare facilitator (not separately reported) Documenting clinical information in the electronic or other health record Independently interpreting results (not separately reported) and communicating results to the patient/family/caregiver Care coordination (not separately reported) documented in this encounterRiverside Methodist Hospital08-27-2024 NotePatient: Tia Flannery Procedure Information Date/Time: 10/27/23729 Procedure: Right heart cath (Right) - pc approved Location: [facility] ABRASIVE WHEEL MOLDER 2 BIPLANE / [facility] (Cath) Providers: Clint Bazan MD Clinical information reviewed: Allergies Meds OB [...] discussed with attending and fellow. Additional [facility]sGu[facility] Note MD Terri Canales MA Are they doing a procedure for her?? Did she have the echocardiogram on 09/10? She will need a follow up lower extremity venous duplex in 6 weeks since they reported a peroneal DVT on the current study, in order to rule out progression. I just uploaded the echo into [employer]. It didn't come to us because Dr. Hope ordered it.[facility]07-01-2024 NoteUT Cardiology - [facility] Subjective Ike Flannery is a 52 y.o. year old female patient being seen to establish care. Ref from Dr. Hope for LE edema, despite being on 3 diuretics. She is currently undergoing chemotherapy for breast cancer. She saw [facility] Cardiology in Apr and they ordered baseline echo to be completed prior to chemotherapy. She is scheduled for another echo in 2 weeks. She has previously seen [facility] cardiology in [place] for hypertension. She denies chest pain, SOB, [...] Take 20 mg (more content not included)... [facility]03-21-[facility]24 Miscellaneous Notes* Tumor Conference Note - AMEENA Cowart - 05/21/2023 11:59 PM EDT Images from the original note were not included. Multidisciplinary Cancer Conference Center Note Patient Name: Ike Flannery : 1970 Conference Type:Breast Conference Date: 05/21/23 Patient's Care Team: Patient Care Team: AMEENA Garcia as PCP - General Aarti Hope MD as Consulting Physician (Internal Medicine) Evan Thompson DO as Referring Physician (Obstetrics and Gynecology) Physicians in attendance: Dr. Melton - moderator Site/Laterality/Histology: 03/26/2023 U/S guided, right breast 4 o'clock, core biopsy ([facility]: re-read TT): 11mm, invasive ductal carcinoma with areas of necrosis grade 3 score=8. LVI negative. ER12-15% AR- HER2/Yohan by IHC negative 0. Patient Presentation: patient palpated lump - - > abnormality seen on imaging; right axillary lymphadenopathy on CBE Cancer Staging Malignant neoplasm of lower-inner quadrant of right breast of female, estrogen receptor positive (CMS-HCC) Staging form: Breast, AJCC 8th Edition - Clinical: Stage IIIC (cT2, cN3, cM0, G3, ER+, AR-, HER2-) - Signed by Christy He MD [...] regarding trials, Please call Clinical Research at [phone] National Guidelines discussed (NCCN, AUA, NCI, etc): [...] can be directed to the Cancer Registry: [phone] documented in this encounterRiverside [facility] Hospital03-21-2024 Progress note* Tumor Conference Note - AMEENA Cowart - 05/21/2023 11:59 PM EDT Images from the original note were not included. Multidisciplinary Cancer Conference Center Note Patient Name: Ike Flannery : 1970 Conference Type:Breast Conference Date: 05/21/23 Patient's Care Team: Patient Care Team: AMENEA Garcia as PCP - General Aarti Hope MD as Consulting Physician (Internal Medicine) Evan Thompson DO as Referring Physician (Obstetrics and Gynecology) Physicians in attendance: Dr. Melton - moderator Site/Laterality/Histology: 03/26/2023 U/S guided, right breast 4 o'clock, core biopsy ([facility]: re-read TT): 11mm, invasive ductal carcinoma with areas of necrosis grade 3 score=8. LVI negative. ER12-15% AR- HER2/Yohan by IHC negative 0. Patient Presentation: patient palpated lump - - > abnormality seen on imaging; right axillary lymphadenopathy on CBE Cancer Staging Malignant neoplasm of lower-inner quadrant of right breast of female, estrogen receptor positive (CMS-HCC) Staging form: Breast, AJCC 8th Edition - Clinical: Stage IIIC (cT2, cN3, cM0, G3, ER+, AR-, HER2-) - Signed by Christy He MD [...] regarding trials, Please call Clinical Research at [phone] National Guidelines discussed (NCCN, AUA, NCI, etc): [...] can be directed to the Cancer Registry: [phone] [employer] Work Phone: 1(387) 179-510703-14-2024 Miscellaneous Notes* Telephone Encounter - Niurka Stockton [...] Voices understanding. Support offered. documented in this encounterRiverside [facility] Hospital03-14-2024 Telephone encounter Note* Telephone Encounter - Niurka [...] at biopsy site. Voices understanding. Support offered. [facility]03-12-2024 Miscellaneous Notes* Telephone Encounter - Ike Irvin RN - 05/12/2023 7:51 AM EDT Notified Emiliana at Dr He office faxing over reports. documented in this encounterRiverside [facility] Hospital03-12-2024 Telephone encounter Note* Telephone Encounter - Ike Irvin RN - 05/12/2023 7:51 AM EDT Notified Emiliana at Dr He office faxing over reports. [facility]03-08-20[facility] History of Present illness Narrative* Niurka Stockton [...] of all information reviewed. documented in this encounterRiverside Methodist Hospital02-27-2024 History of Present illness Narrative* Christy He MD - 04/28/2023 8:00 AM EST Images from the original note were not included. 04/28/23 DIAGNOSIS: Ike Flannery is a 52 y.o. female who presents to the Breast Surgery Clinic for evaluation and recommendations regarding her recently diagnosed right breast cancer, IDC grade 3, ER weakly +, AR -, Her 2 Negative (IHC score 0). HISTORY OF PRESENT ILLNESS : Ike Flannery is a 52 y.o. female who self-palpated [...] had breast surgery before? Right Date/side/reason: lumpectomy 1990 Have you or any family members had genetic testing? Yes Do you have Ashkenazi Alevism ancestry? No HEALTH HISTORY: The patient's past medical history, medications, and allergies have been reviewed in [facility]. PAST MEDICAL HISTORY: Past Medical History: [...] inner quadrant of right breast DIAGNOSIS: Ike Flannery is a 52 y.o. female with grade 3 right breast invasive carcinoma, ER weakly positive/AR negative, Her-2 negative. Cancer Staging No matching [...] Need right ax biopsy Referral placed to [facility] rad onc RV 3 months, PRS [...] procedures Referring and communicating with other health landcare facilitator (not separately reported) Documenting clinical information in the electronic or other health record Independently interpreting results (not separately reported) and communicating results to the patient/family/caregiver Please note that portions of this note were generated using voice recognition M*Modal dictation software. Although every effort was made to ensure the accuracy of this automated ball mill operator, some errors in ball mill operator may have occurred. Christy He MD [facility] [phone] documented in this encounterRiverside Methodist Hospital02-11-2024 NoteChief Complaint consultation for breast cancer/discuss port [...] quadrant of right female breast) plan left wrhyyg-x-eufa insertion under anesthesia, informed consent obtained. Ancef [...] influenza virus vaccine, inactivate (more content not included)...[facility]:Result Comment: Electronically Signed By: BRENNON JAMESON, Sandrita Mays\Date and Time Signed: 04/12/23 19:14 [id number] History of Present illness Narrative* Catie Walker, BURN CREW MEMBER - 04/02/2023 11:30 AM EST Reason for Appointment: Patient ID: Ike Eason Widman is a 52 y.o. female who presents for abnormal test results (Discuss the results of her abnormal mammogram results done @ [facility]) Patient presents today for Consult appointment. [...] History: Diagnosis Date Cardiac dysrhythmia HTN (hypertension) ([facility]) Hypokalemia Migraine headache ([facility]) Family History Adopted: Yes Problem Relation Name [...] nursing note reviewed. Exam conducted with a senior clinical research scientist present. Vitals: Estimated body mass index is [...] diagnostic right breast mammogram done at [facility] on 03/20/23. Results were highly suggestive of malignancy and radiology recommended that patient obtain an ultrasound guided breast biopsy. Patient had ultrasound guided right breast biopsy obtained at [facility] on 03/26/23, biopsy was sent to pathology at [facility]. Reviewed results with patient and discussed [...] patient that letter will be sent via [facility] and if patient does not hear from commissioning specialist by the time she receives letter to contact Specialist to schedule. Advised patient on to call office with any questions. --Catie Johnson LPN documented in this encounterCass Medical [id number] Hospital Discharge instructions Patient Education 07/14/2022 14:20:40 [...] numbers. This can be done either in Spanish (U.S.) or metric measurements. Note that charts and online BMI calculators are available to help you find your BMI quickly and easily without having to do these calculations yourself. To calculate your BMI in Spanish (U.S.) measurements: 1.Measure your weight in pounds [...] Centers for Disease Control and Prevention: www.cdc.gov [employer] [employer]: www.heart.org National Heart, Lung, and Blood [place]: www.nhlbi.nih.gov Summary Body mass index (BMI) is a number that is calculated from a person's weight and height. BMI may help estimate how much of a person's weight is composed of fat. BMI can help identify thosewho may be at higher risk for certain medical problems. BMI can be measured using Spanish measurements or metric measurements. BMI charts are used to identify whether you are underweight, normal weight, overweight, or obese. This information is not intended to replace advice given to you by your health care provider. Make sure you discuss any questions you have with your health care provider. Document Revised: 11/09/2019 Document Reviewed: 09/16/2019 [email or web address] Patient Education 2022 [employer] 07/14/2022 14:20:38 Upper Respiratory Infection, Adult Upper [...] medicines to help relieve symptoms, such as: Xiyg-qge-pwbhtff cold medicines. Cough suppressants. Coughing is a [...] and other clear broths. General instructions Take weas-rkt-oazpfdk and prescription medicines only as told by [...] and water are not available, use hand chemical waste management technician. Avoid touching your mouth, face, eyes, or [...] provider. Document Revised: 09/18/2021 Document Reviewed: 09/18/2021 [email or web address] Patient Education 2022 [email or web address]. Follow Up Care 07/14/2022 13:35:56 With:BRENNON JAMESON, BOBBY Sifuentes Address:Unknown When: Unknown [facility] 09-13-2022 History general Narrative - Reported* Type Description Date Medical History heart dysrythmia Medical History Night sweats Medical History Insomnia, unspecified type Medical History hypertension Surgical History hysterectomy dec 2003 Surgical History acl reconstruction right knee n ov 2004 Surgical History leg dec 2014 Hospitalization History see above [email or web address] Other 09-12-2022 Evaluation note* Encounter Date Diagnosis [...] weeks for the cough to go away [email or web address] Other [id number] Note [id number]#1.00[facility]06-28-2022 [id number]#1.00[facility] 08-26-2021 [facility] SURGERY Clinical Discharge Summary PERSON INFORMATION Name IKE FLANNERY Age 50 Years 1970 Sex FEMALE Language Spanish PCP RANDY CALLE Marital Status Med Service Ambulatory Surgery Acct# Arrival 08/26/2021 11:01:00 Visit Reason SURGERY- LEFT KNEE SCOPE Acuity LOS 003 04:51 Address: [address] [place] [id number] Comment: PROVIDER INFORMATION VITALS INFORMATION Vital Sign Triage Latest Temp Oral Temp Temporal Temp Intravascular Temp Axillary Temp Rectal 02 Sat 100 % 97 % Respiratory Rate Peripheral Pulse Rate Apical Heart Rate Blood Pressure / 90 mmHg / 103 mmHg Comment: MEDICAL INFORMATION Allergy Info: Adhesive Bandage; Demerol Prescriptions Given: acetaminophen-hydrocodone (!-[place] 5 mg-325 mg oral tablet) 1 tab(s) [...] Oral every day. potassium chloride (Potassium Chloride (Kqe-Egkd-Jty 10) 10 mEq oral tablet, extended release) 1 tab(s) Oral every day. traZODone (traZODone 50 mg oral tablet) 1 tab(s) Oral once a day (at bedtime). Medication List: Medications to Continue That Have Not Changed Other Medications acetaminophen-hydrocodone (!-[place] River 5 mg-325 mg oral tablet) 1 tab(s) Oral Every 6 hours as needed as needed for pain. carvedilol (carvedilol 12.5 mg oral tablet) 1 tab(s) Oral 2 times a day. cyclobenzaprine (cyclobenzaprine 10 mg oral tablet) 1 tab(s) Oral At bedtime as needed for spasm. hydroCHLOROthiazide (hydroCHLOROthiazide 25 mg oral tablet) 1 tab(s) Oral every day. potassium chloride (Potassium Chloride (Zgf-Rpbr-Yli 10) 10 mEq oral tablet, extended release) 1 tab(s) Oral every day. traZODone (traZODone 50 mg oral tablet) 1 tab(s) Oral once a day (at bedtime). Medications to Continue That Have Not Changed Other Medications acetaminophen-hydrocodone (!-[place] 5 mg-325 mg oral tablet) 1 tab(s) Oral Every 6 hours as needed as needed for pain. carvedilol (carvedilol 12.5 mg oral tablet) 1 tab(s) Oral 2 times a day. cyclobenzaprine (cyclobenzaprine 10 mg oral tablet) 1 tab(s) Oral At bedtime as needed for spasm. hydroCHLOROthiazide (hydroCHLOROthiazide 25 mg oral tablet) 1 tab(s) Oral every day. potassium chloride (Potassium Chloride (Hvh-Jsin-Qgm 10) 10 mEq oral tablet, extended release) 1 tab(s) Oral every day. traZODone (traZODone 50 mg oral tablet) 1 tab(s) Oral once a day (at bedtime). Medications to Continue That Have Not Changed Other Medications acetaminophen-hydrocodone (!-[place] 5 mg-325 mg oral tablet) 1 tab(s) Oral Every 6 hours as needed as needed for pain. carvedilol (carvedilol 12.5 mg oral tablet) 1 tab(s) Oral 2 times a day. cyclobenzaprine (cyclobenzaprine 10 mg oral tablet) 1 tab(s) Oral At bedtime as needed for spasm. hydroCHLOROthiazide (hydroCHLOROthiazide 25 mg oral tablet) 1 tab(s) Oral every day. potassium chloride (Potassium Chloride (Yhk-Wuix-Ymc 10) 10 mEq oral tablet, extended release) [...] EDUCATION INFORMATION Instructions: [facility] Follow up: DIAGNOSIS Internal derangement of left knee Comment: PHYS DOC [facility]06-16-2022 [facility] SURGERY Clinical Discharge Summary PERSON INFORMATION Name IKE FLANNERY Age 50 Years 1970 Sex FEMALE Language Spanish PCP RANDY CALLE Marital Status Med Service Ambulatory Surgery Acct# Arrival Visit Reason SURGERY - LEFT KNEE SCOPE Acuity LOS 010 03:19 Address: [address] [place] [address] Comment: PROVIDER INFORMATION VITALS INFORMATION Vital Sign [...] Oral every day. potassium chloride (Potassium Chloride (Oge-Cpmc-Fml 10) 10 mEq oral tablet, extended release) 1 tab(s) Oral every day. traZODone (traZODone 50 mg oral tablet) 1 tab(s) Oral once a day (at bedtime). Medication List: Medications That Were Updated - Follow Below Instructions Other Medications Updated: potassium chloride (Potassium Chloride (Uku-Ikho-Qcy 10) 10 mEq oral tablet, extended release) [...] Other Medications Updated: potassium chloride (Potassium Chloride (Mek-Dxzz-Obe 10) 10 mEq oral tablet, extended release) [...] Other Medications Updated: potassium chloride (Potassium Chloride (Vpl-Pbkp-Xgi 10) 10 mEq oral tablet, extended release) [...] Follow up: With: Address: When: MYESHA VINSON [address] [facility], [place] [address] Business (1) 09/03/2021 9:15 AM With: Address: When: [place] [address] Business (1) Type Location Start Finish [facility] Collection ([facility]) LAB 08/21/2021 4:00 PM 08/21/2021 4:10 PM Confirmed Surgery ([facility]) [facility] Main OR 08/26/2021 1:00 PM 08/26/2021 1:30 PM Confirmed DIAGNOSIS Comment: AGUSTIN ROQUE [facility]11-24-2021 Note [id number]11-23-2021 [id number]#1.00[facility] 01-21-2021 [facility] SURGERY Clinical Discharge Summary PERSON INFORMATION Name IKE FLANNERY Age 50 Years 1970 Sex FEMALE Language Spanish PCP ALVARANDY Marital Status Med Service Ambulatory Surgery Acct# Arrival 01/21/2021 06:05:01 Visit Reason SURGERY - RIGHT KNEE ARTHROSCOPY Acuity LOS 032 23:00 Address: [facility] [address] Comment: PROVIDER INFORMATION VITALS INFORMATION Vital Sign [...] Follow up: With: Address: When: MYESHA VINSON [address] [place] [address], [address] [place] [address] Business (1) 01/30/2021 11:00 AM With: Address: When: [place], [place] [id number] Business (1) DIAGNOSIS Internal derangement of right knee; Tear of meniscus of right knee Comment: AGUSTIN ROQUE [facility]11-19-2021 NoteSpoke to pt on phone regarding upcoming procedure. pt aware to be here at 6am, NPO after midnight, and need for ride after procedure. pt verbalizes understanding. [Electronically Signed on: 01/18/2021 11:03 EST] Jen Khoury RN [Verified on: 01/18/2021 11:03 EST] [facility]hour[facility] No data available for this section [facility] Evaluation + Plan note Future Appointments Appointment Date:04/10/2023 03:20:00 PM Scheduled Provider:Sandrita WILLETT MD Location:[facility] Appointment Type:[address] noteNo assessment information available [facility] Work Phone: Evaluation note* Diagnosis Mammogram abnormal Abnormal mammogram, unspecified Invasive ductal carcinoma of breast, right (CMS/HCC) documented in this encounter [facility]* Diagnosis Malignant neoplasm of lower-inner quadrant of right breast of female, estrogen receptor positive (CMS-HCC)- Primary Mass of lower inner quadrant of right breast Malignant neoplasm of lower-inner quadrant of right breast of female, estrogen receptor positive (CMS-HCC) [facility]* Diagnosis Onset Date Resolution Status Breast cancer, right acute [facility] Work Phone: Evaluation note* Diagnosis Onset Date Resolution Status Breast cancer, right acute Breast cancer, right acute [facility] Work Phone: Evaluation note* Diagnosis 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 [facility]* Diagnosis 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 [facility] Diagnosis MIRNA (acute kidney injury) ([facility])- Primary MIRNA (acute kidney injury) ([facility]) Infection of deep incisional surgical site after procedure, initial encounter 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 Infection of deep incisional surgical site after procedure, subsequent encounter Malignant neoplasm of lower-inner quadrant of right breast of female, estrogen receptor positive ([facility]) Hypertension Unspecified essential hypertension Cellulitis of left breast Infection of deep incisional surgical site after procedure [facility]* Diagnosis Encounter for postoperative care- Primary Acquired absence of breast, bilateral S/P breast reconstruction, bilateral Infection of breast implant, subsequent encounter [facility]* Diagnosis Malignant neoplasm of lower-inner quadrant of right breast of female, estrogen receptor positive ([facility])- Primary [facility]* Diagnosis Encounter for postoperative care- Primary Acquired absence of breast, bilateral S/P breast reconstruction, bilateral [facility]* Diagnosis Onset Date Resolution Status Breast cancer, right acute Breast cancer, right acute Breast cancer, right acute [facility] Work Phone: Evaluation note* Diagnosis Infection of deep incisional surgical site after procedure, subsequent encounter- Primary Malignant neoplasm of lower-inner quadrant of right breast of female, estrogen receptor positive ([facility]) documented [facility]* Diagnosis Retinal tear of right eye- Primary Vitreous hemorrhage of right eye ([facility]) Vitreous hemorrhage [facility] Diagnosis Cellulitis of left breast- Primary S/P breast reconstruction, bilateral [facility]* Diagnosis Encounter for postoperative care- Primary Acquired absence of breast, bilateral S/P breast reconstruction, bilateral Infection of breast implant, subsequent encounter [facility] Diagnosis Adverse effect of doxycycline, initial encounter- Primary [facility] Diagnosis Anaphylaxis, subsequent encounter- Primary [facility]* Diagnosis Encounter to discuss procedure [facility]* Diagnosis Breast wound, left, sequela- Primary S/P breast reconstruction, bilateral [facility] Diagnosis Pre-op examination H/O malignant neoplasm of breast [facility]* Diagnosis Encounter for postoperative care- Primary S/P breast reconstruction, bilateral Mycobacterium abscessus infection Breast wound, left, sequela [facility] [...] medication regimen. She denies medication side effects. [facility] 250 DO Work Phone: Hospital Discharge instructions No data available for this section [facility]* RISE Order Location: [facility] Work Phone: InstructionsNot on filedocumented in this [...] data available for this section [facility] Progress note Author Quincy Colbert [facility] December 29, 2023 11:28am Note Date/Time December 29, 2023 1 1:28am [facility] [place] [address] Cancer Center Note Signed Patient: Ike Flannery MR#: [id number] : 1970 Acct:[id number] Age/Sex: 53 / F Type: REG AMB Date of Service: 12/29/23 Copies to: MD Randy Mistry,DO~ Assessment & Plan (1) Breast cancer, right: Plan: CT simulation to follow-plan for postmastectomy radiation 42.5 Buckley in 16 fractions with a 10 Buckley 4 fraction boost to the right IMN's Involved on PET Assessment: 52-year-old female with clinical stage IIIc, 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 ER negative (weakly positive) AR negative HER2 negative. She received neoadjuvant chemotherapy [...] upper extremity. She is planned for 42.5 Buckley in 16 fractions to the right chest wall and regional lymphatics including the internal mammary lymphnodes. We will plan on a 10 Buckley 4 fraction boost to the grossly involved [...] 3. LVSI negative. ER 12 to 15% AR negative HER2 negative by IHC. 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 ER weakly positive AR negative HER2 negative. April 17, 2023 PET [...] 2023 patient's case was presented at the [facility] tumor board. Recommendations were for PET staging [...] bilateral skin sparing mastectomies with prepectoral tissue battery parts assembler placement. Left breast shows diffuse fibrocystic change [...] cellulitis with an infected seroma. Left tissue battery parts assembler removed. She has been on ertapenem and [...] recently saw her plastic surgeon and tissue battery parts assembler on right has been filled. Intake Intake Visit Reasons: Follow Up Prior to CT-SIM Allergies meperidine Allergy (Unknown, Unverified 11/11/21 18:32) Unknown Reaction, anaphylaxis [facility] Medical History Medical History (Updated 09/30/23 [...] air Breast: Exam now shows left tissue battery parts assembler surgically absent. Port has been accessed for IV antibiotics. Right tissue battery parts assembler quite full exam shows skin to be tense with surgical incisions well-healed MSK: Demonstrates good range of motion of the right shoulder with external rotation. Results - [facility] (Rad Onc) LAB RESULTS No Data to Display Dictated By: Quincy Colbert MD DD/ 27 Signed By: <Electronically signed by Quincy Colbert MD> 12/29/231127 [facility] Work Phone: Reason for referral (narrative)* Consultation (Routine) - Pending Review Specialty Diagnoses / Procedures Referred By Jose olmedo Referred To Contact Radiation Oncology Diagnoses Malignant neoplasm of lower-inner quadrant of right breast of female, estrogen receptor positive (CMS-HCC) Christy He MD [address] [place] [phone] Dany Diop MD [address] [place] [address] Referral ID Status Reason Start Date Expiration Date Visits Requested Visits Authorized [id number] Pending Review Specialty Services Required 04/28/2023 04/27/2024 1 1 * Diagnostic Imaging (Emergency) - Pending Review Specialty Diagnoses / Procedures Referred By Jose olmedo Referred To Contact Radiology Diagnoses Malignant neoplasm of lower-inner quadrant of right breast of female, estrogen receptor positive (CMS-HCC) Procedures MR bilateral breast with and without contrast with CAD Christy He MD [address] [place] [address], [address] [address] Referral ID Status Reason Start Date Expiration Date V isits Requested Visits Authorized [id number] Pending Review 04/28/2023 04/27/2024 1 1 [facility] for referral (narrative)* Consultation (Urgent) - Pending Review Specialty Diagnoses / Procedures Referred By Contac t Referred To Contact Infectious Disease Diagnoses Acid fast bacillus Gino Munguia APRN-CNP [address] [facility] [facility] [address] [address] Mathew Serrato DO [address] [place] [address] Referral ID Status Reason Start Date Expiration Date Visits Requested Visits Authorized [id number] Pending Review Specialty Services Required 12/03/2023 12/02/2024 1 1 [facility] for referral (narrative)* Consultation (Urgent) - Pending Review Specialty Diagnoses / Procedures Referred By Contac t Referred To Contact Infectious Disease Diagnoses 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 * V.O per Dr. Shanon Tyler MD / R Singler RN increase chlorthalidone to 50mg daily and do BP check in 2 weeks. * Patient advised verbalized understanding rx sent * To Dr. Shanon Tyler MD * To Dr. Shanon Dominguez DO in suite * Patient in office for bp check due to hypertension/edema. Patient states edema has resolved. Tolerating the med changes well. Patient bp reviewed per r singler rn. * V.O per Dr. Shanon Tyler MD / R Amir RN increase chlorthalidone to 50mg daily and do BP check in 2 weeks. * Patient advised verbalized understanding rx sent * To Dr. Shanon Tyler MD * To Dr. Shanon Dominguez DO in suite Patient is here today for a blood pressure check ordered by Dr. Shanon Tyler MD due to hypertension. Dr. Chantal Bear MD in suite. Patient is here after 2 week follow up, patient was here for a blood pressure check on 08/22/[address] Shanon Tyler MD increased Chlorthalidone to 50mg once daily. Patient did take all medications this morning. Medication list was updated verbally with patient. She is overall feeling well, denies any cardiac complaints, but does complain of bilateral leg edema. Discussed with Grey Steele RN prior to discharge.* Blood pressure f/u : 'doing fine' * IKE FLANNERY is being seen for a 3 month follow-up of hypertension. Chief Complaint and Reason for Visit Chief Complaint Admit Date Follow Up Prior to CT-SIM December 29, 2023 10:50am Right Breast Cancer December 29, 2023 1 1:56am Amb Documentation January 13, 2024 3:48pm Right Breast Cancer January 14, 2024 11:58am Right Breast Cancer January 19, 2024 8:21am Right Breast Cancer February 01, 2024 8 :25am Right Breast Cancer February 08, 2024 8 :18am Right Breast Cancer February 10, 2024 8:00am Referred by Dr. Colbert February 10, 2:21pm 1 Month Follow Up, Right Breast Cancer J anuary 2024 2:42pm Reason for Visit Admit Date Breast cancer, right December 29, 2023 10:50am Mycobacterium abscessus infection Dece er 2023 2:21pm Breast cancer, right March 14, 2024 2:42pm Chief Complaint NEW Breast Cancer Follow Up, [...] Referral Specialty Diagnoses / Procedures Referred By Jose olmedo Referred To Contact Procedures Discharge Follow-Up Amy Jack MD [address] [facility] [address] [place] [address] Referral ID Status Reason Start Date Expiration Date V isits Requested Visits Authorized [id number] Pending Review 12/09/2023 12/08/2024 1 1 Referral ID Status Reason Start Date Expiration Date V isits Requested Visits Authorized [id number] Pending Review 12/09/2023 12/08/2024 1 1 Specialty Diagnoses / Procedures Referred By Contac t Referred To Contact Diagnoses Infection of deep incisional surgical site after procedure, initial encounter Infection of deep incisional surgical site after procedure, subsequent encounter Procedures Follow-up with primary care provider Amy Jack MD [address], [facility] [address] [place] [address] Referral ID Status Reason Start Date Expiration Date V isits Requested Visits Authorized [id number] Pending Review 12/09/2023 12/08/2024 1 1 Specialty Diagnoses / Procedures Referred By Contac t Referred To Contact Procedures Adult diet Amy Jack MD [address], [facility] [address] [place] [address] Referral ID Status Reason Start Date Expiration Date V isits Requested Visits Authorized [id number] Pending Review 12/09/2023 12/08/2024 1 1 Additional Source Comments INFORMATION SOURCE (unrecogn ized section and content) DATE CREATED AUTHOR 07/28/2021 [facility] dical Specialist DATE CREATED AUTHOR AUTHOR'S ORGANIZ ATION 09/22/2021 [facility] DATE CREATED AUTHOR AUTHOR'S ORGANIZ ATION 12/01/2021 [facility] DATE CREATED AUTHOR AUTHOR'S ORGANIZ ATION 01/04/2022 [facility] DATE CREATED AUTHOR AUTHOR'S ORGANIZ ATION 09/30/2022 [facility] DATE CREATED AUTHOR AUTHOR'S ORGANIZ ATION 10/01/2022 [facility] DATE CREATED AUTHOR AUTHOR'S ORGANIZ ATION 10/17/2022 [facility] DATE CREATED AUTHOR AUTHOR'S ORGANIZ ATION 04/13/2023 [facility] DATE CREATED AUTHOR AUTHOR'S ORGANIZ ATION 02/22/2024 [facility] DATE CREATED AUTHOR AUTHOR'S ORGANIZ ATION 03/03/2024 [facility] DATE CREATED AUTHOR AUTHOR'S ORGANIZ ATION 03/15/2024 [facility] Special[facility] DATE CREATED AUTHOR AUTHOR'S ORGANIZ ATION 03/23/2024 [facility] DATE CREATED AUTHOR AUTHOR'S ORGANIZ ATION 03/30/2024 [facility] DATE CREATED AUTHOR AUTHOR'S ORGANIZ ATION 04/01/2024 [facility] DATE CREATED AUTHOR AUTHOR'S ORGANIZ ATION 04/04/2024 [facility] REASON FOR VISIT (unrecogniz ed section and content) Reason Comments abnormal test results Discuss the result s of her abnormal mammogram results done @ [facility] Reason Comments Consult Newly dx Specialty Diagnoses / Procedures Referred By Jose olmedo Referred To Contact Breast Surgery Diagnoses Mass of lower inner quadrant of right breast Richie Hanna, LINE DRIVER-[employer]OGHURT MAKER [address] [place] [address] Christy He MD [address] [place] [phone] Referral ID Status Reason Start Date Expiration Date V isits Requested Visits Authorized [id number] Pending Review 03/23/2023 03/22/2024 1 1 Reason [...] Referred By Jose t Referred To Contact Diagnoses MIRNA (acute kidney injury) ([facility]) Nimo Meza MD [address] [place] [address] Referral ID Status Reason Start Date Expiration Date Visits Re quested Visits Authorized [id number] 1 1 Reason Onset Date Comments Transition Of Care 12/11/2023 Reason Comments Post-op Reason Comments Spots and/or Floaters Flashes, Light Reason Comments Post-op Reason Comments new patient Pt states she is all ergic to several antibiotics. Reason Comments Discuss Procedure Pt present today to discuss an ovary removal. Reason Onset Date Comments Post-op Problem 02/23/2024 Reason Onset Date Comments critical lab 03/02/2024 Reason Comments Post-op Pt here for post op follow up. Patient Care team informatio n (unrecognized section [...] 2023 End: March 26, 2023 GUY Khan ADVERTISING SALES CONSULTANT-C Attending Provider Active Start: March 26, 2023 End: March 26, 2023 Apple Picker Relationship Specialty Start Date End Date Randy Calle MD [address] [place] [address] PCP - General Family Medicine 04/02/23 Apple Picker Relationship Specialty Start Date End Date Richie Hanna, LINE DRIVER-[employer]T MAKER [address] [place] [address] PCP - General 11/28/16 Apple Picker Relationship Specialty Start Date End Date Richie Hanna, LINE DRIVER-[employer]OGHURT MAKER [address] [place] [address] PCP - General 11/28/16 Apple Picker Relationship Specialty Start Date End Date Richie Hanna, LINE DRIVER-YOGHURT MAKER [address] [place] [address] PCP - General 11/28/16 Apple Picker Relationship Specialty Start Date End Date Richie Hanna, LINE DRIVER-YOGHURT MAKER [address] [place] [address] PCP - General 11/28/16 Apple Picker Relationship Specialty Start Date End Date Richie Hanna, LINE DRIVER-YOGHURT MAKER [address] [place] [address] PCP - General 11/28/16 Apple Picker Relationship Specialty Start Date End Date Richie Hanna LINE DRIVER-YOGHURT MAKER [address] [place] [address] PCP - General 11/28/16 Apple Picker Relationship Specialty Start Date End Date Richie Hanna, LINE DRIVER-YOGHURT MAKER [address] [place] [address] PCP - General 11/28/16 Apple Picker Relationship Specialty Start Date End Date Richie Hanna LINE DRIVER-YOGHURT MAKER [address] [place] [address] PCP - General 11/28/16 Apple Picker Relationship Specialty Start Date End Date Richie Hanna LINE DRIVER-YOGHURT MAKER [address] [place] [address] PCP - General 11/28/16 Apple Picker Relationship Specialty Start Date End Date Richie Hanna LINE DRIVER-YOGHURT MAKER [address] [place] [address] PCP - General 11/28/16 Apple Picker Relationship Specialty Start Date End Date Richie Hanna, LINE DRIVER-YOGHURT MAKER [address] [place] [address] PCP - General 11/28/16 Apple Picker Relationship Specialty Start Date End Date Richie Hanna LINE DRIVER-YOGHURT MAKER [address] [place] [address] PCP - General 11/28/16 Apple Picker Relationship Specialty Start Date End Date Richie Hanna LINE DRIVER-YOGHURT MAKER [address] [place] [address] PCP - General 11/28/16 Apple Picker Relationship Specialty Start Date End Date Richie Hanna William, LINE DRIVER-YOGHURT MAKER [address] [place] [address] PCP - General 11/28/16 Apple Picker Relationship Specialty Start Date End Date Kevin Hannamayte Thomas, LINE DRIVER-YOGHURT MAKER [address] [place] [address] PCP - General 11/28/16 Apple Picker Relationship Specialty Start Date End Date Randy Calle MD [address], [place] [address] PCP - General Family Medicine 04/02/23 Apple Picker Relationship Specialty Start Date End Date Randy Calle MD [address] [place] [address] PCP - General Family Medicine 04/02/23 Apple Picker Relationship Specialty Start Date End Date Richie Hanna, LINE DRIVER-YOGHURT MAKER [address] [place] [address] PCP - General 11/28/16 Apple Picker Relationship Specialty Start Date End Date Randy Calle MD [address] [place] [address] PCP - General Family Medicine 04/02/23 Apple Picker Relationship Specialty Start Date End Date Randy Calle MD [address] [place] [address] PCP - General Family Medicine 04/02/23 Apple Picker Relationship Specialty Start Date End Date Randy Calle MD [address], [place] [address] PCP - [facility] Medicine 04/02/23 Apple Picker Relationship Specialty Start Date End Date Randy Calle MD [address], [place] [address] PCP - General Family Medicine 04/02/23 Apple Picker Relationship Specialty Start Date End Date Randy Calle MD [address], [place] [address] PCP - [facility] 04/02/23 Apple Picker Relationship Specialty Start Date End Date Richie Hanna, LINE DRIVER-YOGHURT MAKER [address] [place] [address] PCP - General 11/28/16 Apple Picker Relationship Specialty Start Date End Date Richie Hanna, LINE DRIVER-YOGHURT MAKER [address] [place] [address] PCP - General 11/28/16 Apple Picker Relationship Specialty Start Date End Date Richie Hanna, LINE DRIVER-YOGHURT MAKER [address] [place] [address] PCP - General 11/28/16 Apple Picker Relationship Specialty Start Date End Date Randy Calle MD [address], [place] [address] PCP - General Family Medicine 04/02/23 Team Status: Active Member Role Status Dates Randy Calle DO Primary Care Provider Active Start: December 29, 2023 Quincy Colbert MD Attending Provid er, Other Provider Active Start: December 29, 2023 Aarti Hope MD Referring Provider Active St art: December 29, 2023 Team Status: Active Member Role Status Dates Randy Calle DO Primary Care Provider Active Start: January 13, 2024 Quincy Colbert MD Attending Provider Active Start: January 13, 2024 Team Status: Active Member Role Status Dates Randy Calle DO Primary Care Provider Active Start: January 14, 2024 Quincy Colbert MD Attending Provid er, Other Provider Active Start: January 14, 2024 Aarti Hope MD Referring Provider Active St art: January 14, 2024 Team Status: Active Member Role Status Dates Randy Calle DO Primary Care Provider Active Start: January 19, 2024 Quincy Colbert MD Attending Provid er, Other Provider Active Start: January 19, 2024 Aarti Hope MD Referring Provider Active St art: January 19, 2024 Team Status: Active Member Role Status Dates Randy Calle DO Primary Care Provider Active Start: January 27, 2024 Mookie Buchanan DO Attending Provider Active Sta rt: January 27, 2024 Team Status: Active Member Role Status Dates Randy Calle DO Primary Care Provider Active Start: February 01, 2024 Quincy Colbert MD Attending Provid er, Other Provider Active Start: February 01, 2024 Aarti Hope MD Referring Provider Active St art: February 01, 2024 Team Status: Active Member Role Status Dates Randy Calle DO Primary Care Provider Active Start: February 08, 2024 Quincy Colbert MD Attending Provid er, Other Provider Active Start: February 08, 2024 Aarti Hope MD Referring Provider Active St art: February 08, 2024 Team Status: Active Member Role Status Dates Randy Calle DO Primary Care Provider Active Start: February 10, 2024 Quincy Colbert MD Attending Provider Active Start: February 10, 2024 Aarti Hope MD Referring Provider Active St art: February 10, 2024 Team Status: Inactive Member Role Status Dates Randy Calle DO Primary Care Provider Active Start: February 11, 2024 End: February 11, 2024 Sandrita Perez MD Attending Provider Active Sta rt: February 11, 2024 End: February 11, 2024 Team Status: Inactive Member Role Status Dates Randy Calle DO Primary Care Provider Active Start: March 14, 2024 End: March 14, 2024 Quincy Colbert MD Attending Provider Active Start: March 14, 2024 End: March 14, 2024 Apple Picker Relationship Specialty Start Date End Date Richie Hanna APRN-YOGHURT MAKER [address] [place] [address] PCP - General 11/28/16 Goals (unrecognized section and content) Goals may be documented in a n alternate section Scheduled Active and Recently Administ ered Medications (unrecognized section and content) Medication Order 12/07/2023 12/08/2023 12/09/2023 apixaban (ELIQUIS) tablet 5 mg 5 mg, oral, 2 times daily, First dose on Thu12/03/23 at 0045, Indication: Acute VTE Treatment, Indications: deep venous thrombosis 0741 (Given - Provider: Alisha Richardson RN)213 (Given - Provider: Aliza Benito RN) 09 (Given - Provider: Claudia Masterson LPN)2054 [...] LPN)2054 (Given - Provider: Aliza Benito RN) 0918 (Given - Provider: Kahlil Gregorio RN) clarithromycin (BIAXIN) tablet 500 mg 500 mg, oral, Every 12 hours scheduled, First dose on Thu12/03/23 at 1200, 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) 0743 (Given - Provider: Alisha Richardson RN)2138 (Given - Provider: Aliza Benito RN) 927 (Given - Provider: Claudia Masterson LPN)2054 (Given - Provider: Aliza Benito RN) 917 (Given - Provider: Kahlil Gregorio RN) cyanocobalamin tablet 1,000 mcg 1,000 mcg, oral, Daily, First dose on Thu12/06/23 at 0900 0742 (Given - Provider: Alisha Richardson RN) 09 (Given - Provider: Claudia Masterson LPN) 0917 (Given - Provider: Kahlil Gregorio RN) doxycycline [...] 0900 (Given - Provider: Kahlil Gregorio RN) imipenem-cilastatin (PRIMAXIN) 500 mg in sodium chloride 0.9 % 100 mL IVPB-MBP 500 mg, intravenous, at 200 mL/hr, Administer over 30 Minutes, Every 12 hours, First dose on Thu12/05/23 at 1730, ADD-VANTAGE/MBP- Discard 24 hours after activating; dissolve drug prior to administration, Pathogen: Other, Specify: request of ID, Indication: Other, Authorizing Service: ID Consult has been placed, I acknowledge that an appropriate consult is REQUIRED to use this drug at [facility], [facility] and [facility] per [facility]-approved policy # MM 1.15: Yes 1004 (New [...] Gregorio RN)1154 (Stop Bag - Provider: Kahlil Gregorio, OC) iron sucrose (VENOFER) 200 mg in sodium [...] 2100 0741 (Given - Provider: Alisha Richardson RN)2139 (Given - Provider: Aliza Benito RN) 0928 (Given - Provider: Claudia Masterson LPN)2055 (Given - Provider: Aliza Benito RN) 0917 (Given - Provider: Kahlil Gregorio RN) methylPREDNISolone sod suc(PF) (Solu-MEDROL) injection 125 mg [...] chew. 0742 (Given - Provider: Alisha Richardson RN)2139 (Given - Provider: Aliza Benito RN) 09 (Given - Provider: Claudia Masterson LPN)2054 (Given - Provider: Aliza Benito RN) 09 (Given - Provider: Kahlil Gregorio, OC) potassium chloride (KLOR-CON M 20) CR tablet 20 mEq 20 mEq, oral, Daily, First dose on 12/06/23 at 0900, Hold for potassium more than 4.5 Do not crush or chew. 0738 (Given - Provider: Alisha Richardson RN) 09 (Given - Provider: Claudia Masterson LPN) 916 (Given - Provider: Kahlil Gregorio RN) sodium chloride 0.9 % flush 3 mL 3 mL, intravenous, Every 12 hours scheduled, First dose on Thu12/02/23 at 2320 0744 (Given - Provider: Alisha Richardson RN)2308 (Given - Provider: Aliza Benito RN) 927 (Given - Provider: Claudia Masterson LPN)2056 (Given - Provider: Aliza Benito RN) 09 (Given - Provider: Kahlil Gregorio RN) tigecycline (TYGACIL) 50 mg in sodium chloride 0.9 % 50 mL IVPB (CANCELED)(Linked Group 1) 50 mg, intravenous, at 110 mL/hr, Administer over 30 Minutes, Every 12 hours, First dose on 12/06/23 at 0630, Pathogen: MDR infection with confirmed susceptibility, Approved Indication: Other, Authorizing Service: ID consult has been placed, I acknowledge that an appropriate consult is REQUIRED to use this drug at [facility], [facility] and [facility] per [facility]-approved policy # MM 1.15: Yes, 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 0736 (New Bag - Provider: Alisha Richardson RN - Comment: was waiting on pharmacy)08 (Stop Bag - Provider: Alisha Richardson RN) Continuous Medication Order 12/07/2023 12/08/2023 12/09/2023 lactated ringers infusion (CANCELED) 100 mL/hr, intravenous, Continuous, Starting on [place] 12/03/23 at 1415 0145 (New Bag - Provider: Aliza Benito RN)0450 (Paused - Provider: Alisha Richardson RN)0452 (Restarted - Provider: Alisha Richardson RN)0736 (Paused - Provider: Alisha Richardson RN)0807 (Restarted - Provider: Alisha Richardson RN)0910 (Paused - Provider: Alisha Richardson, RN)0925 (Restarted - Provider: Alisha Richardson RN)1002 (Stop Bag - Provider: Alisha Richardson RN) lactated ringers infusion (CANCELED) 100 mL/hr, intravenous, Continuous, Starting on Thu12/07/23 at 1215, For 24 hours 1215 (Canceled Entry - Provider: Alisha Richardson RN - Comment: Fluids already running. Order changed to q24 hr ordering)2006 (New Bag - Provider: Aliza Benito RN) 0341 (Paused - Provider: Claudia Mastersno LPN)0345 (Paused - Provider: Claudia Masterson LPN)0345 (Restarted - Provider: Claudia Masterson LPN)0403 (Paused - Provider: Claudia Masterson LPN)0407 (Restarted - Provider: Claudia Masterson LPN)0506 (Paused - Provider: Claudia Masterson LPN)0512 (Restarted - Provider: Claudia Masterson LPN)0605 (Stop Bag - Provider: Claudia Masterson LPN)0618 (New Bag - Provider: Aliza Benito RN)1138 (Paused - Provider: Claudia Masterson LPN)1208 (Restarted - Provider: Claudia Masterson LPN)1304 (Paused - Provider: Claudia Masterson LPN)1306 (Restarted - Provider: Claudia Masterson LPN)1400 (Stop Bag - Provider: Claudia Masterson LPN)1523 (Rate/Dose Verify - Provider: Claudia Masterson LPN) [...] PRN, wheezing, shortness of breath, Starting on Thu12/03/23 at 0038, Implement INPATIENT/ED Bronchodilator Clinical Practice Guidelines? Yes, Document: \[email or web address].org\epi c\EPIC_Reference\Orders\ Respiratory Care Guidelines\CPG Bronchodilator 2020.pdf jvyyrfh-hxvhsrodmhxxe-la ffeine (EXCEDRIN MIGRAINE) 250-250-65 mg per tablet [...] oral, Nightly PRN, muscle spasms, Starting on Thu12/03/23 at 0039 dextrose (GLUTOSE) 40 % gel [...] Alisha Richardson RN)2304 (Given - Provider: Aliza Benito, OC) 0509 (Given - Provider: Aliza Benito RN) [...] 0617 (See Alternative - Provider: Aliza Benito RN)1353 (Given - Provider: Claudia Masterson LPN) potassium [...] 0737 (Given - Provider: Alisha Richardson RN) 0617 (Given - Provider: Aliza Benito RN)7091 (See Alternative - Provider: Claudia Masterson LPN) [...] potassium is more than 4.5, Starting on Thu24 at 1406, If dose administered, recheck phosphorus [...] is REQUIRED to use this drug at [facility], [facility] and [facility] per [facility]-approved policy # MM 1.15: Yes, Specify: 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 Followed by tigecycline (TYGACIL) 50 mg in sodium chloride 0.9 % 50 mL IVPB (CANCELED)Jump to med 50 mg, intravenous, at 110 mL/hr, Administer over 30 Minutes, Every 12 hours, First dose on [place] 12/06/23 at 0630, Pathogen: MDR infection with confirmed susceptibility, Approved Indication: Other, Authorizing Service: ID consult has been placed, I acknowledge that an appropriate consult is REQUIRED to use this drug at [facility], [facility] and [facility] per [facility]-approved policy # MM 1.15: Yes, Specify: consult [...] BE BASED ON THE PRIMARY CLINICAL RECORDS. [employer] provides no warranty or guarantee of the accuracy or completeness of information in this document.
[2024-04-07 06:58] LABS: Basophils Percent Auto 0.6 % (0.2-2.0); Eosinophils Absolute Auto 0.3 10^3/uL (0.0-0.7); Eosinophils Percent Auto 5.3 % (0.9-7.0); Hematocrit 28.9 % (36.0-48.0); Hemoglobin 9.6 g/dL (12.0-16.0); Immature Granulocytes Abs Auto 0.01 10^3/uL (0.00-0.03); Immature Granulocytes Pct Auto 0.2 % (0.0-0.5); Lymphocytes Absolute Auto 0.7 10^3/uL (1.2-3.8); Lymphocytes Percent Auto 12.4 % (20.5-60.0); Mean Corpuscular HGB Conc 33.2 g/dL (29.9-35.2); Mean Corpuscular Hemoglobin 30.7 pg (26.7-34.0); Mean Corpuscular Volume 92.3 fL (81.0-99.0); Mean Platelet Volume 8.8 fL (9.5-13.5); Monocytes Absolute Auto 0.5 10^3/uL (0.3-0.8); Monocytes Percent Auto 9.7 % (1.7-12.0); Neutrophils Absolute Auto 3.8 10^3/uL (1.4-6.5); Neutrophils Percent Auto 71.8 % (43.0-75.0); Platelet Count 258 10^3/uL (150-450); Red Blood Count 3.13 10^6/uL (4.20-5.40); Red Cell Distribution Width 16.7 % (11.0-15.0); White Blood Count 5.3 10^3/uL (4.0-11.0)
[2024-04-07] MEDS: LACTATED RINGER'S SOLUTION 1,000 ML 50 ML IV ×2 (07:34→09:15)
[2024-04-07] MEDS: SCOPOLAMINE 1 MG/3 DAYS TRANSDERM PATCH 1 PATCH TD (07:46)
[2024-04-07] MEDS: FAMOTIDINE/PF 20 MG/2 ML VIAL IV (07:53)
--- NOTE | 2024-04-07 09:34 | PM.URSON ---
Urology Surgery Operative Note Operative Note Procedure Date: 04/07/24 Time Out Performed: yes Pre-op Diagnosis: Breast cancer and need for ureteral catheter placement Post-op Diagnosis: same as pre-op Procedures performed: 1. Cystoscopy. 2. Placement of bilateral 6 [place] ureteral catheters Anesthesia: AVI Primary Surgeon: Ulisses Gonsalez Complications: None Estimated blood loss (mL): 0 Findings: Normal bladder. Stenosed left UO. Specimens: None Drains: Bilateral 6 [place] ureteral catheters and Palacio catheter to bladder Indications for Procedures: This lady has a history of breast cancer triple negative. she has had a hysterectomy in the past. She now presents for robotic assisted laparoscopic bilateral salpingo oophorectomy. The ACTIVITY COORDINATOR service was desirous of bilateral ureteral catheter placements to act as a intraoperative guide to minimize complications. She has signed an informed consent for cystoscopy and bilateral ureteral catheter placement. Detailed description of Procedure: The patient was brought to the operating room and placed on the operating room table in the supine position. Timeout was done by all parties in the room. General endotracheal anesthesia was then administered. She was then repositioned into the modified dorsolithotomy position. All pressure points were satisfactorily padded. Abdomen and genitalia were sterilely prepped and draped in the usual fashion. I started by passing a 22 [place] Olympus cystoscope per urethra and into the bladder. Panendoscopy in the bladder revealed no evidence of any tumors stones or lesions. Her left UO was rather stenotic. I then passed a 6 [place] open-ended ureteral catheter through the scope and with some effort I was finally able to get it into the left UO and slide it up to the kidney. I then passed a second 1 through the scope and similarly passed it up the right ureter into the kidney. The scope was removed and the catheters were externalized out the urethral meatus. A Palacio catheter was then placed in the bladder. An adapter was placed between the catheter and and the catheter tubing. I then was able to attach both ureteral catheters to this adapter. They were each individually tied to the Palacio catheter with umbilical tape. My part of the procedure was then done. I then left the room and Dr. Thompson came in to do his portion. Urinary Catheter Management Urinary Catheter Management Urethral: Cath placed during this visit: no
--- NOTE | 2024-04-07 09:58 | P.ON_ITS ---
Brief Operative Note Date of procedure: 04/07/24 Pre-op diagnosis general: breast ca, pelvic pain Post-op diagnosis: same as pre-op Procedure: NAME OF PROCEDURE: robotic assisted bilateral laparoscopic salpingoopherectomy, extensive lysis of adhesions finding suspicious possible pelvic mass vs surgical change from prior surgery PROCEDURE: The patient was taken back to the Operating Room where she was given general ane sthesia without difficulty. She was then prepped and draped in the normal sterile fashion after being placed in a dorsal lithotomy position. A wet sponge stick was placed into the patient's vagina. Attention was then turned to the patient's abdomen, where a scalpel was used to make a small infraumbilical incision. The S retractors were then used to dissect the underlying layers until the fascia could be seen. The fascia was then grasped with Jong clamps and tented up. A knife was then used to make a small incision to the fascia. The muscle was identified, at that time two sutures of #0 Vicryl on a GI needle was then used and placed through the fascia. the peritoneum was then identified and entered bluntly. The 10-4 Nemesio was then placed into the patient's abdomen. This was confirmed with direct visualization of the bowel, using the laparoscope. The patient's abdomen was then insufflated using approximately 4 liters of CO2 gas. Survey of the patient's abdomen demonstrated ovaries were normal in appearance as well as both tubes and uterus. A second and third rt and lt lateral robotic ports which were 8 mm in size, was then placed after the skin incision was made under direct visualization . the robotic arms were engaged. The patient's tube and ovary on the patient's right side was identified and tented up using a grasper, the vessel sealer apparatus was then used to come across the infundibular ligament and mesosalpingx, the tube and ovary was then amputated and removed in its entirety. This was done on contralateral side after extensive lysis of adhesions The tubes and ovaries were the removed from the patients abdomen. Excellent hemostasis was noted. The lateral ports were then moved under direct visualization with excellent hemostasis. All instruments were removed from the patient's abdomen. The fascia was closed using the #0 Vicryl on GI needle. The skin was closed using 4-0 Vicryl subcuticularly. All instruments were removed from the patient's vagina as well. The patient was taken out of the dorsal lithotomy position and placed in the supine position and taken to recovery in stable condition. Sponge, lap and needle counts were correct x2. Anesthesia: AVI Surgeon: Evan Thompson Gas Meter Repair Supervisor: Jen Ross Estimated blood loss (mL): 5 Pathology: other (ovaries and tube) Condition: stable Disposition: PACU Urinary Catheter Management Urinary Catheter Management Urethral: Cath placed during this visit: no
[2024-04-07] MEDS: HYDROMORPHONE HCL 0.5 MG/0.5 ML SYRINGE IV (10:50)
--- NOTE | 2024-04-07 10:59 | PC.NURSE ---
at 1050 applied oxygen 2 liters via nasal canula patient received dilaudid at this time as well
[2024-04-07] MEDS: HYDROCODONE/ACET 5-325 MG TABLET 1 TAB PO (11:45)
--- NOTE | 2024-04-07 12:23 | PC.NURSE ---
1223 called brendan to tell her Dr Thompson said to hold eliquis for 2 days.
== END 2024-04-07 12:02 | disposition home or self-care (01) ==
PROVIDERS: Urology; Visit Provider Obstetrics & Gynecology
PROC: (CPT 840; principal; 2024-04-07 08:00)
PROC: (CPT 910; 2024-04-07 08:00)
DX: N92.0 Excessive and frequent menstruation with regular cycle (principal); I10 Essential (primary) hypertension; C50.919 Malignant neoplasm of unspecified site of unspecified female breast; Z90.710 Acquired absence of both cervix and uterus; J45.909 Unspecified asthma, uncomplicated; Z86.16 Personal history of COVID-19
CPT/HCPCS: 52332; 58661; 36415; 85025; 88305; J0690; J1100; J1171; J1200; J1885; J2250; J2405; J2704; J3010; J3490

== ENCOUNTER 2024-04-22 07:37 | Outpatient (RCR) | payer OTHER, SELFPAY ==
[2024-04-05 11:40] VITALS: BP 141/97; PULSE 88; TEMP 36.4; O2SAT 98
[2024-04-05] MEDS: LEUPROLIDE ACETATE 22.5 MG IM (12:01)
[2024-04-05 12:07] LABS: Basophils Percent Auto 0.6 % (0.2-2.0); Eosinophils Absolute Auto 0.2 10^3/uL (0.0-0.7); Eosinophils Percent Auto 4.6 % (0.9-7.0); Hematocrit 27.9 % (36.0-48.0); Hemoglobin 9.2 g/dL (12.0-16.0); Immature Granulocytes Abs Auto 0.03 10^3/uL (0.00-0.03); Immature Granulocytes Pct Auto 0.6 % (0.0-0.5); Lymphocytes Absolute Auto 0.7 10^3/uL (1.2-3.8); Lymphocytes Percent Auto 13.2 % (20.5-60.0); Mean Corpuscular Hemoglobin 30.2 pg (26.7-34.0); Mean Corpuscular Volume 91.5 fL (81.0-99.0); Mean Platelet Volume 9.5 fL (9.5-13.5); Monocytes Absolute Auto 0.5 10^3/uL (0.3-0.8); Monocytes Percent Auto 9.3 % (1.7-12.0); Neutrophils Absolute Auto 3.7 10^3/uL (1.4-6.5); Neutrophils Percent Auto 71.7 % (43.0-75.0); Platelet Count 297 10^3/uL (150-450); Red Blood Count 3.05 10^6/uL (4.20-5.40); Red Cell Distribution Width 17.1 % (11.0-15.0); White Blood Count 5.2 10^3/uL (4.0-11.0)
[2024-04-05 12:35] LABS: Alanine Aminotransferase 22 U/L (14-59); Albumin Globulin Ratio 1.1; Albumin Level 3.2 g/dL (3.4-5.0); Alkaline Phosphatase 81 U/L (46-116); Anion Gap 14.3; Aspartate Amino Transferase 18 U/L (15-37); Bilirubin Direct 0.1 mg/dL (0.0-0.2); Bilirubin Total 0.6 mg/dL (0.2-1.0); Calcium 9.2 mg/dL (8.5-10.1); Carbon Dioxide 26.4 mmol/L (21.0-32.0); Chloride 104 mmol/L (98-107); Estimated GFR (African America >60 (>=60 mL/min/1.73m^2); Estimated GFR (Non-African Ame >60 (>=60 mL/min/1.73m^2); Glucose 84 mg/dL (74-106); Potassium 3.7 mmol/L (3.5-5.1); Sodium 141 mmol/L (136-145); Total Protein 6.2 g/dL (6.4-8.2)
[2024-04-22 09:22] VITALS: BP 145/86; PULSE 96; TEMP 37.1; O2SAT 98
--- NOTE | 2024-04-22 09:24 | PC.NURSE ---
left chest port sl reddened at insertion site, approx 1 cm around insertion site.
[2024-04-22 09:39] LABS: Basophils Percent Auto 0.4 % (0.2-2.0); Eosinophils Absolute Auto 0.3 10^3/uL (0.0-0.7); Eosinophils Percent Auto 5.5 % (0.9-7.0); Hematocrit 25.8 % (36.0-48.0); Hemoglobin 8.6 g/dL (12.0-16.0); Immature Granulocytes Abs Auto 0.01 10^3/uL (0.00-0.03); Immature Granulocytes Pct Auto 0.2 % (0.0-0.5); Lymphocytes Absolute Auto 0.7 10^3/uL (1.2-3.8); Lymphocytes Percent Auto 12.8 % (20.5-60.0); Mean Corpuscular HGB Conc 33.3 g/dL (29.9-35.2); Mean Corpuscular Hemoglobin 30.4 pg (26.7-34.0); Mean Corpuscular Volume 91.2 fL (81.0-99.0); Mean Platelet Volume 8.9 fL (9.5-13.5); Monocytes Absolute Auto 0.5 10^3/uL (0.3-0.8); Monocytes Percent Auto 8.5 % (1.7-12.0); Neutrophils Absolute Auto 3.9 10^3/uL (1.4-6.5); Neutrophils Percent Auto 72.6 % (43.0-75.0); Platelet Count 195 10^3/uL (150-450); Red Blood Count 2.83 10^6/uL (4.20-5.40); Red Cell Distribution Width 18.3 % (11.0-15.0); White Blood Count 5.3 10^3/uL (4.0-11.0)
[2024-04-22] MEDS: 0.9 % SODIUM CHLORIDE 250 ML 10 ML IV (09:52)
[2024-04-22 10:01] LABS: Alanine Aminotransferase 23 U/L (14-59); Albumin Globulin Ratio 1.1; Albumin Level 3.1 g/dL (3.4-5.0); Alkaline Phosphatase 85 U/L (46-116); Anion Gap 9.7; Aspartate Amino Transferase 14 U/L (15-37); Bilirubin Total 1.2 mg/dL (0.2-1.0); Carbon Dioxide 27.7 mmol/L (21.0-32.0); Chloride 107 mmol/L (98-107); Estimated GFR (African America >60 (>=60 mL/min/1.73m^2); Estimated GFR (Non-African Ame >60 (>=60 mL/min/1.73m^2); Globulin 2.8 g/dL; Glucose 105 mg/dL (74-106); Potassium 3.4 mmol/L (3.5-5.1); Sodium 141 mmol/L (136-145); Thyroid Stimulating Hormone 0.288 uIU/mL (0.358-3.740); Total Protein 5.9 g/dL (6.4-8.2)
[2024-04-22] MEDS: PEMBROLIZUMAB 200 MG in 0.9 % SODIUM CHLORIDE 100 ML 216 MG IV (10:24)
--- NOTE | 2024-04-22 10:40 | PC.NURSE ---
1030 keytrudu initiated, patient given warm blanket.
--- NOTE | 2024-04-22 12:08 | PC.NURSE ---
1150 tolerated infusion well. 1200 Lemus removed from port, right at insertion site, slightly reddened approx 1 cm around, cleansed using sterile technique, reaccessed with #20 3/4 inch lemus, excellent blood return flushed with NS. cap and CHG cap applied. tegaderm applied to site. tolerated well. released ambulatory.
== END 2024-04-27 13:42 | disposition home or self-care (01) ==
LOC: HEMC 07:37
PROVIDERS: PCP Nurse Practitioner Family; Visit Provider Internal Medicine Hematology & Oncology
DX: Z51.11 Encounter for antineoplastic chemotherapy (principal); C50.311 Malignant neoplasm of lower-inner quadrant of right female breast; A31.1 Cutaneous mycobacterial infection; C77.3 Secondary and unspecified malignant neoplasm of axilla and upper limb lymph nodes; A31.8 Other mycobacterial infections; Z79.899 Other long term (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 therapy; D70.1 Agranulocytosis secondary to cancer chemotherapy; R11.2 Nausea with vomiting, unspecified; Z15.09 Genetic susceptibility to other malignant neoplasm; Z79.818 Long term (current) use of other agents affecting estrogen receptors and estrogen levels; D64.81 Anemia due to antineoplastic chemotherapy; Z90.710 Acquired absence of both cervix and uterus; Z79.01 Long term (current) use of anticoagulants; Z90.722 Acquired absence of ovaries, bilateral; Z90.13 Acquired absence of bilateral breasts and nipples; Z17.0 Estrogen receptor positive status [ER+]; I10 Essential (primary) hypertension; Z17.22 Progesterone receptor negative status
CPT/HCPCS: 36415; 36591; 80053; 80076; 80150; 82248; 82565; 84443; 85025; 87040; 96365; 96372; 96413; 99211; G0463; J0278; J1954; J9271

== ENCOUNTER 2024-04-27 07:37 | Outpatient (RCR) | payer OTHER, SELFPAY ==
[2024-04-15 11:13] VITALS: BP 137/83; PULSE 90; TEMP 36.8; O2SAT 98
[2024-04-15] MEDS: AMIKACIN SULFATE IV (11:20)
[2024-04-15] MEDS: SODIUM CHLORIDE 0.9% IV (11:20)
--- NOTE | 2024-04-15 11:45 | PC.NURSE ---
explained proccess for getting amikacin, will give the dose, wait 30 - 60 mins and draw a peak, will also draw weekly labs. verbalizes understanding
--- NOTE | 2024-04-15 15:02 | PC.NURSE ---
1220 IV amakacin infused. tolerated well without s/s of reaction
--- NOTE | 2024-04-15 15:03 | PC.NURSE ---
1255 labs drawn from port a cath, sent to lab. deaccessed port, site care given, new #20ga 3/4 in lemus inserted utilizing sterile techniqe, excellent blood return noted. flushed line with 20 ml of ns. tegaderm dressing applied. tolerated well. Patient educated on returning on Thursday for trough amikacin level, verbalizes understanding. Released ambulatory
[2024-04-15 16:00] LABS: Basophils Percent Auto 0.6 % (0.2-2.0); Eosinophils Absolute Auto 0.3 10^3/uL (0.0-0.7); Eosinophils Percent Auto 5.7 % (0.9-7.0); Hematocrit 25.1 % (36.0-48.0); Hemoglobin 8.2 g/dL (12.0-16.0); Immature Granulocytes Abs Auto 0.01 10^3/uL (0.00-0.03); Immature Granulocytes Pct Auto 0.2 % (0.0-0.5); Lymphocytes Absolute Auto 0.8 10^3/uL (1.2-3.8); Lymphocytes Percent Auto 15.7 % (20.5-60.0); Mean Corpuscular HGB Conc 32.7 g/dL (29.9-35.2); Mean Corpuscular Hemoglobin 30.5 pg (26.7-34.0); Mean Corpuscular Volume 93.3 fL (81.0-99.0); Monocytes Absolute Auto 0.6 10^3/uL (0.3-0.8); Monocytes Percent Auto 12.3 % (1.7-12.0); Neutrophils Absolute Auto 3.4 10^3/uL (1.4-6.5); Neutrophils Percent Auto 65.5 % (43.0-75.0); Platelet Count 207 10^3/uL (150-450); Red Blood Count 2.69 10^6/uL (4.20-5.40); White Blood Count 5.2 10^3/uL (4.0-11.0)
[2024-04-15 16:10] LABS: Alanine Aminotransferase 22 U/L (14-59); Albumin Globulin Ratio 1.2; Alkaline Phosphatase 75 U/L (46-116); Aspartate Amino Transferase 15 U/L (15-37); Bilirubin Direct 0.2 mg/dL (0.0-0.2); Bilirubin Total 0.8 mg/dL (0.2-1.0); Estimated GFR (African America >60 (>=60 mL/min/1.73m^2); Estimated GFR (Non-African Ame >60 (>=60 mL/min/1.73m^2); Globulin 2.5 g/dL; Total Protein 5.5 g/dL (6.4-8.2)
[2024-04-18 11:35] VITALS: BP 126/67; PULSE 82; TEMP 36.5; O2SAT 96
[2024-04-18] MEDS: SODIUM CHLORIDE 0.9% IV (12:12)
[2024-04-18] MEDS: AMIKACIN SULFATE IV (12:12)
--- NOTE | 2024-04-20 11:41 | PC.NURSE ---
Chemo teaching completed for Abenaciclib (verzenio) educated on use, side effects signs and symptoms to report.
[2024-04-27 12:04] LABS: Basophils Percent Auto 0.4 % (0.2-2.0); Eosinophils Absolute Auto 0.2 10^3/uL (0.0-0.7); Eosinophils Percent Auto 3.6 % (0.9-7.0); Hemoglobin 7.8 g/dL (12.0-16.0); Immature Granulocytes Abs Auto 0.01 10^3/uL (0.00-0.03); Immature Granulocytes Pct Auto 0.2 % (0.0-0.5); Lymphocytes Absolute Auto 0.7 10^3/uL (1.2-3.8); Lymphocytes Percent Auto 14.7 % (20.5-60.0); Mean Corpuscular HGB Conc 33.5 g/dL (29.9-35.2); Mean Corpuscular Hemoglobin 30.6 pg (26.7-34.0); Mean Corpuscular Volume 91.4 fL (81.0-99.0); Mean Platelet Volume 9.5 fL (9.5-13.5); Monocytes Absolute Auto 0.5 10^3/uL (0.3-0.8); Monocytes Percent Auto 10.5 % (1.7-12.0); Neutrophils Absolute Auto 3.6 10^3/uL (1.4-6.5); Neutrophils Percent Auto 70.6 % (43.0-75.0); Platelet Count 193 10^3/uL (150-450); Red Blood Count 2.55 10^6/uL (4.20-5.40); Red Cell Distribution Width 18.1 % (11.0-15.0)
[2024-04-27 12:12] LABS: Hematocrit 23.3 % (36.0-48.0)
[2024-04-27 12:34] LABS: Alanine Aminotransferase 19 U/L (14-59); Albumin Globulin Ratio 1.2; Albumin Level 3.2 g/dL (3.4-5.0); Alkaline Phosphatase 75 U/L (46-116); Aspartate Amino Transferase 12 U/L (15-37); Bilirubin Direct 0.2 mg/dL (0.0-0.2); Estimated GFR (African America >60 (>=60 mL/min/1.73m^2); Estimated GFR (Non-African Ame 54 (>=60 mL/min/1.73m^2); Globulin 2.6 g/dL; Total Protein 5.8 g/dL (6.4-8.2)
--- NOTE | 2024-04-27 13:15 | PC.NURSE ---
1130: Pt. to [facility] amb. for lab draw and port a cath change. Site around port reddened and warm to touch. Flushes easily and able to aspirate blood easily for ordered labs. Blood cultures obtained as well due to symptoms of port and pt. c/o. Dr. Hope notified. Dawson needle de-accessed from port a cath. Using sterile technique, left ant. chest port re-accessed without difficulty. Flushes easily and able to aspirate blood without difficulty. Dawson secured with Opsite dressing. Pt. tolerated with minimal c/o. Relays slight burning with flushing of port with saline. D/c'd amb. to home.
== END 2024-04-27 13:41 | disposition home or self-care (01) ==
LOC: INF 07:37
DX: A31.1 Cutaneous mycobacterial infection (principal); A31.8 Other mycobacterial infections
CPT/HCPCS: 36591; 80076; 80150; 82565; 85025; 96365; J0278

== ENCOUNTER 2024-04-29 05:00 | Outpatient (OUT) | payer OTHER, SELFPAY ==
--- NOTE | 2024-04-29 09:54 | ECG_ITS ---
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
--- OUTSIDE RECORDS SUMMARY | 2024-05-02 11:35 | XMS_ITS | CCD ---
Author Organization [facility] CliniSywv Care Team Providers Care Civil Project Engineer Name Role Phone Jesusita Gee Unavailable RANDY [...] Care Unavailable KRYSTEN, DR ANNE Consulting Unavailable AFSHAN, DR HIRAL Meza Consulting Unavailable MILKA, DR KAYE Garcia Consulting Unavailable Sandrita WILLETT Primary Care Physician [phone] RANDY CALLE Primary Care Physician Randy Calle [...] Dr. Randy Meier Primary Care Unava ilable Alec, . Brittani Lisa Cortes Attending Unavai lable Santos, Starr Cortes Referring Unavai lable Furlong, Dr. Randy Meier Primary Care Unava ilable BRITTANI AVALOS Attending Unavailable BRITTANI AVALOS Referring Unavailable Furlong, Dr. Randy Meier Primary Care Unava ilable Furloterry, DO Padilla Primary Care Provider [phone] GUY Hanna Attending Provider Randy Calle MD Primary Care [...] Unavailable JACQUES, RICHIE L Primary Care Unavailable Furlong, DO Padilla Primary Care Provider [phone] MD Quincy Colbert Attending Provider MD Aarti Hope Referring Provider DO Randy Calle Primary Care Provider MD Quincy Colbert Attending Provider MD Aarti Hope Referring Provider [phone] Jacques REFLOW OPERATOR-RETURNED CASE INSPECTOR, Richie William Primary Care Provider SHANON TYLER Attending Unavailable RANDY CALLE Primary Care Unavailab Randy Hernandez DO Primary Care Provider Quincy Colbert MD Attending Provider Aarti Hope MD Referring Provider [phone] Evan Thompson DO Attending Provider HE, CHRISTY A Referring Unavailable JACQUES, RICHIE [...] Unavailable JACQUES, RICHIE L Primary Care Unavailable BRE SANCHEZ Referring Unavailable JACQUES, RICHIE L Primary Care Unavailable HE, CHRISTY A Admitting Unavailable HE, CHRISTY A Attending Unavailable JACQUES, RICHIE L Primary Care Unavailable HARIS OSBORN Attending Unavailable JACQUES, RICHIE L Primary Care Unavailable HE, CHRISTY A Attending Unavailable HE, CHRISTY A Referring Unavailable JACQUES, RICHIE L Primary Care Unavailable HE, CHRISTY A Attending Unavailable HE, HCRISTY A Referring Unavailable JACQUES, RICHIE L Primary Care Unavailable MARISELA CUEVAS Referring Unavailable JACQUES, RICHIE L Primary Care Unavailable JHON ROSADO Admitting Unavail able SUGJHON Jaramillo Attending Unavail able SUGGJHON Referring Unavail able JACQUES, RICHIE L Primary Care Unavailable MANSOOR, CARLENE U Consulting Unavailable STANLEY MCDERMOTT Attending Unavailable JACQUES, RICHIE L Primary Care Unavailable JACQUES, RICHIE L Primary Care Unavailable KAYLEIGH ADAMES Attending Unavailabl e MANSOOR, CARLENE U Consulting Unavailable NIMO MEZA R Admitting Unavailab EPIFANIO Crawford Consulting Unavailable SHANON JOE Consulting Unavailable EPIFANIO HENRY Attending Unavailable EPIFANIO HENRY Referring Unavailable JACQUES, RICHIE L Primary Care Unavailable LILIANE VALLE Referring Unavailable JACQUES, RICHIE L Primary Care Unavailable JHON ROSADO Admitting Unavail able JHON ROSADO Attending Unavail able JACQUES, RICHIE L Primary Care Unavailable JORDAN CORREA Attending Unavailable JACQUES, RICIHE L Primary Care Unavailable JACQUES, RICHIE L Referring Unavailable JACQUES, RICHIE L Primary Care Unavailable JHON ROSADO Admitting Unavail able JHON ROSADO Attending Unavail able JACQUES, RICHIE L Primary Care Unavailable RENO KENYON Attending Unavailable JACQUES, RICHIE L Primary Care Unavailable RAYMOND SEPULVEDA Attending Unavailable JACQUES, RICHIE L Referring Unavailable JACQUES, RICHIE L Primary Care Unavailable JAYY, AARTI Referring Unavailable JACQUES, RICHIE L Primary Care Unavailable Jacques [facility] Primary Care Provider Sandrita WILLETT Attending Unavailable Ulisses GONSALEZ Attending Unavailable Sandrita WILLETT Attending Unavailable Rusty Horton Attending Unavailable NASREEN LI Attending Unavailable EVAN THOMPSON Attending Unavailable EVAN THOMPSON Attending Unavailable GEORGIANA JUSTICE Attending Unavailable YVES COFFEY Attending Unavailable YVES COFFEY Attending Unavailable YVES COFFEY Attending Unavailable EVAN THOMPSON Attending Unavailable EVAN THOMPSON Attending Unavailable Evan Thompson Admitting Unavailable Evan Thompson Attending Unavailable Jayy, Aarti Referring Unavailable Quincy Colbert Attending Unavailable Quincy Colbert Admitting Unavailable Randy Calle Primary Care Unavailable ANUSHA, GENERIC Attending Unavailable HERMAN LUI Attending Unavailable SANDRITA AGOSTO Attending Unavailable SCOTT RODRIGUEZ Attending Unavailable CLINT BAZAN Admitting Unavailable CLINT BAZAN Attending Unavailable CLINT BAZAN Attending Unavailable HERMAN LUI Attending Unavailable HERMAN LUI Attending Unavailable JOSSY MOODY Attending Unavailable RESEARCH, GENERIC Attending Unavailable RESEARCH, GENERIC Attending Unavailable CHRISTY HE Attending Unavailable JACQUES, RICHIE L Referring Unavailable [...] JACQUES, RICHIE L Primary Care Unavailable SUGJHON Jaramillo Attending Unavail able JACQUES, RICHIE L Referring Unavailable JACQUES, RICHIE L Primary Care Unavailable CUEVAS MARISELA A Attending Unavailable JACQUES, RICHIE L Referring Unavailable JACQUES, RICHIE L Primary Care Unavailable SUZETTE MASON Attending Unavailable JACQUES, RICHIE L Referring Unavailable JACQUES, RICHIE L Primary Care Unavailable CUEVAS, MARISELA A Attending Unavailable JACQUES, RICHIE L Referring Unavailable JACQUES, RICHIE L Primary Care Unavailable CUEVASMARISELA CARLSON A Attending Unavailable JACQUES, RICHIE L Referring Unavailable JACQUES, RICHIE L Primary Care Unavailable JHON ROSADO Attending Unavail able JACQUES, RICHIE L Referring Unavailable JACQUES, RICHIE L Primary Care Unavailable JHON ROSADO Attending Unavail able JACQUES, RICHIE L Referring Unavailable JACQUES, RICHIE L Primary Care Unavailable SUGJHON Jaramillo Attending Unavail able JACQUES, RICHIE L Referring Unavailable JACQUES, RICHIE L Primary Care Unavailable LASHAWN CUEVASIN A Attending Unavailable JACQUES, RICHIE L Referring Unavailable JACQUES, RICHIE L Primary Care Unavailable CUEVAS MARISELA A Attending Unavailable JACQUES, RICHIE L Referring Unavailable JACQUES, RICHIE L Primary Care Unavailable CUEVAS, MARISELA A Attending Unavailable JACQUES, RICHIE L Referring Unavailable JACQUES, RICHIE L Primary Care Unavailable SUGJHON Jaramillo Attending Unavail able JACQUES, RICHIE L Referring Unavailable JACQUES, RICHIE L Primary Care Unavailable Allergies Allergy Classification Reported Allergen(s) Allergy Type Date of Onset Reaction(s) Facility (20 sources) Meperidine; Translations: [meperidine] Drug Allergy 9 anaphylaxis, Eruption of skin (disorder), Swelling, Unknown, Facial Swelling [facility] [place] (1 source) Adhesive bandage; Translations: [Adhesive Bandage] Propensity to adverse reactions (disorder) [facility] Repository (3 sources) Meperidine; Translations: [Demerol] Drug Allergy 3 [facility] Repository (8 sources) Adhesive agent; Translations: [ADHESIVE] Drug allergy (disorder) 5 Rash [facility] Repository (20 sources) Meperidine Drug Allergy 3 Unknown [facility] (20 sources) Wound Dressing Adhesive Drug Allergy 3 Unknown, Rash, Itching [facility] (20 sources) DAPTOmycin; Translations: [daptomycin] Drug Allergy 4 Flushing (disorder), Flushing [facility] (20 sources) Doxycycline; Translations: [doxycycline] Drug Allergy 4 Rash [facility] (20 sources) tigecycline; Translations: [tigecycline] Drug Allergy 4 Vomitus (substance) [facility] (17 sources) Daptomycin Propensity to adverse reactions 4 Other [facility] Healthcare (18 sources) Tetracycline; Translations: [tetracycline] Drug Allergy 4 [facility] (17 sources) tigecycline Drug Allergy 4 Hives [facility] (20 sources) Vancomycin; Translations: [VANCOMYCIN] Drug Allergy 4 Other (See Comments) [facility] (20 sources) Adhesive agent Propensity to adverse reactions to drug 2 Rash [facility] (20 sources) Adhesive Tape-Silicones; Translations: [ADHESIVE TAPE-SILICONES] Propensity to adverse reactions to drug 4 Itching [facility] (1 source) DAPTOmycin Drug Allergy 5 [facility] Repository (1 source) Doxycycline Drug Allergy 5 [facility] (1 source) Meperidine Drug Allergy 5 [facility] Repository (1 source) tigecycline Drug Allergy 5 [facility] Repository (1 source) Vancomycin Drug Allergy 4 [facility] Repository Medications Current Medications Medication Drug Class(es) Dates Sig (Normalized) Sig (Original) abemaciclib 150 mg oral tablet (2 sources) Start: 04-18-2024 take 1 tablet by mouth twice daily Abemaciclib (Verzenio) 150 mg tablet Active 150 MG PO Twice daily April 26, 2024 12:00am acetaminophen 325 mg / HYDROcodone bitartrate 5 mg oral tablet (20 sources) Opioid Agonist Start: 05-13-2023 HYDROcodone-acetami nophen ([place]) 5-325 MG tablet TAKE ONE TABLET BY MOUTH EVERY 6 HOURS NEEDED FOR PAIN SCALE 4 TO 6 05/13/2023 Active amikacin in sodium chloride 0.9 % 100 mL IVPB (8 sources) take 750 mg intravenously three times [...] Oct, Active anastrozole 1 mg oral tablet (16 sources) Aromatase Inhibitor Start: 01-08-2024 take 1 [...] day(s), # 21 cap(s), Refills(s) 0, Pharmacy: [facility]/pharmacy #[id number], 180, cm, 07/14/22 14:05:00 EDT, Height/Length Dosing, [...] 500 mg / imipenem 500 mg injection (7 sources) Penem Antibacterial, Renal Dehydropeptidase Inhibitor Start: 03-29-2024 [...] 12/03/23 at 1200, 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) CLOFAZIMINE, BULK, MISC (8 sources) take 1 capsule by mouth at [...] FATIGUE 04/21/2023 Active ertapenem 1000 mg injection (3 sources) Penem Antibacterial Start: 02-11-2024 take 1 g [...] Start: 04-06-2023 End: 03-18-2024 Flonase 0.05 mg/inh Equinunk 1 spray(s), Nasal, BID, Refill(s) 0 Start Date: 04/06/23 Status: Ordered fluticasone (Austen nase) 50 MCG/ACT nasal spray 1 (one) time each day at the same time Active take 1 spray(s) nasal route once daily fluticasone propionate (FLONASE) 50 mcg/actuation nasal spray 1 spray in each nostril Nasally Once a day Active gabapentin 300 mg oral capsule (20 sources) Anti-epileptic Agent Start: 04-26-2024 take 1 capsule by mouth twice daily Gabapentin 300 mg capsule Active 300 MG PO Twice daily April 26, 2024 12:00am Start: 05-02-2023 End: 12-09-2023 take 1 capsule by mouth twice daily gabapentin (Neurontin) 300 MG capsule TAKE ONE CAPSULE BY MOUTH TWICE A DAY FOR HOT FLASHES 05/02/2023 Active hydroCHLOROthiazide 12.5 mg oral tablet (20 sources) Thiazide Diuretic hydroCHLOROthi azide (HYDRODiuril) 12.5 MG tablet 1 (one) time each day at the same time Active hydroCHLOROthiazide 12.5 mg / lisinopril 20 mg oral tablet (20 sources) Thiazide Diuretic, Angiotensin Converting Enzyme Inhibitor Start: 2022 take 1 tablet by mouth in the morning lisinopril-hydroCHLOROth iazide 20-12.5 MG tablet Take 1 tablet by mouth in the morning. 06/17/2022 Active Start: 11-27-2021 End: 10-16-2023 take 1 tablet by mouth every twenty-four hours lisinopril-hydroCHLOROthiazide (PRINZIDE,ZESTORETIC) 20-12.5 mg per tablet Take 1 tablet by mouth daily. 90 tablet 1 11/27/2021 10/16/2023 Discontinued (Therapy completed) lisinopril-hydro CHLOROthiazide 20-25 MG tablet 1 (one) [...] source) Angiotensin 2 Receptor Bridgette Cozaar Active magnesium oxide 400 mg oral tablet (20 sources) Start: 02-11-2024 take 1 tablet by mouth once daily Magnesium Oxide (Magox) 400 mg (241.3 mg magnesium) tablet Active 400 MG PO Daily February 11, 2024 12:00am Start: 12-05-2023 End: 12-09-2023 take 400 mg by mouth twice daily 400 mg, oral, 2 times daily, First dose on 12/05/23 at 2100 mecobalamin (3 sources) Start: 02-11-2024 mecobalamin (v itamin B12) Active [...] daily, First dose (after last modification) on [facility] 12/05/23 at 2100, Hold for systolic blood [...] high blood pressure. 09/09/2023 Active Start: 04-06-2023 End: 10-16-2023 metoprolol (LOPRESSOR) 5 mg/ 5 mL injection as directed, Refills(s) 0 04/06/2023 10/16/2023 Discontinued (Therapy completed) Start: 04-06-2023 metoprolol as directed, Refills(s) 0 [...] 17, 2018 12:00am February 11, 2024 2:31pm potassium chloride 10 meq extended release oral [...] oral, As needed, potassium supplementation, Starting on [facility] 12/03/23 at 0602, Progress to oral [...] Active Start: 03-22-2023 take 1 tablet by the [facility] twice daily at bedtime Start: 08-18-2022 take 1 tablet by the [facility] once daily Klor-Con M20 20 MEQ Oral Tablet Extended Release Take 1 tablet daily Quantity: 90 Refills: 3 Ordered: 18-Aug-2022 Shanon Tyelr MD Start : 18-Aug-2022 Active End: 10-16-2023 potassium chloride (K-TAB,KL OR-CON) 10 MEQ CR tablet Take 1 tablet (10 mEq total) by mouth in the morning. 10/16/2023 Discontinued (Dose adjustment) predniSONE 5 mg oral tablet (20 sources) End: 12-09-2023 take 1 tablet by mouth in the morning predniSONE (Deltasone) 5 MG tablet Take 5 mg by mouth in the morning. Active prochlorperazine 10 mg oral tablet (20 sources) Phenothiazine Start: 04-21-2023 take 1 tablet by mouth three times daily as needed for nausea prochlorperazine (Compazine) 10 MG tablet TAKE ONE TABLET BY MOUTH THREE TIMES A DAY NEEDED FOR NAUSEA 04/21/2023 Active pyridoxine (3 sources) Start: 02-11-2024 pyridoxine (vitamin B6) Active PO February 11, 2024 12:00am Spironolactone (20 sources) Aldosterone Antagonist Start: 04-06-2023 spironolactone as directed, Refills(s) 0 Start Date: 04/06/23 Status: Ordered Start: 03-26-2023 End: 03-25-2024 take 1 tablet by mouth in the morning spironolactone (Aldactone) 25 MG tablet Take 25 mg by mouth in the morning. 03/26/2023 Active tedizolid phosphate 200 mg oral tablet (11 sources) Oxazolidinone Antibacterial Start: 02-11-2024 End: 07-14-2024 take 1 tablet by mouth in the morning tedizolid (SIVEXTRO) 200 mg tablet tablet Take 1 tablet (200 mg total) by mouth in the morning. 03/16/2024 07/14/2024 Active vitamin b12 1 mg oral tablet (20 [...] dose vitamin b6 50 mg oral tablet (7 sources) Start: 03-28-2024 take 1 tablet by mouth [...] Every 6 hours PRN, headaches, Starting on Thu12/03/23 at 1225 albuterol 0.83 mg/ml inhalation solution [...] (Therapy completed) carvedilol 25 mg oral tablet (20 sources) alpha-Adrenergi c Bridgette, beta-Adrenergic Bridgette Start: 05-01-2022 End: 01-25-2024 take 1 tablet by mouth in the morning carvedilol (Coreg) 25 MG tablet Take 25 mg by mouth in the morning and 25 mg in the evening. 05/01/2022 01/25/2024 Discontinued (Therapy completed) Coreg Active cefuroxime 250 mg oral tablet (7 sources) Cephalosporin Antibacterial Start: 03-17-2018 End: 02-11-2024 Cefuroxime Axetil 250 mg Tablet Discontinued TABLET March 17, 2018 12:00am February 11, 2024 2:30pm Start: 03-17-2018 Cefuroxime Axe til Active TABLET March 17, 2018 1:00am citalopram 10 mg oral tablet (7 sources) Serotonin Reuptake Inhibitor Start: 03-17-2018 End: 02-11-2024 Citalopram 10 mg Tablet Discontinued TABLET March 17, 2018 12:00am February 11, 2024 2:30pm Start: 03-17-2018 Citalopram Act hallie TABLET March 17, 2018 1:00am diazePAM 5 mg oral tablet (15 sources) Benzodiazepine Start: 11-11-2023 End: 12-09-2023 take [...] use. docusate sodium 50 mg / sennosides, half-way 8.6 mg oral tablet (1 source) Start: [...] ml enoxaparin sodium 100 mg/ml prefilled syringe (6 sources) Low Molecular Weight Heparin Start: 10-19-2023 End: [...] 12/09/2023 Active furosemide 20 mg oral tablet (20 sources) Loop Diuretic Start: 08-12-2023 End: 08-11-2024 [...] is REQUIRED to use this drug at [facility], [facility] and [facility] per [facility]-approved policy # MM 1.15: Yes iron [...] Shanon Tyler MD Start : 21-Jul-2022 Active Magic Mouthwash W/Lidocaine 240 Ml Bottle 240 mL bottle (3 sources) Start: 02-03-2024 End: 04-26-2024 take 10 mL by mouth four times daily Magic Mouthwash W/Lidocaine 240 Ml Bottle 240 mL bottle Discontinued 10 ML PO Four times daily 240 February 03, 2024 12:00am April 26, 2024 3:06pm Take 10ml by mouth, four times daily, SWISH AND SWALLOW. Start: 02-03-2024 take 10 mL by mouth four times daily Magic Mouthwash W/Lidocaine 240 Ml Bottle 240 mL bottle Active 10 ML PO Four times daily 240 February 03, 2024 12:00am Take 10ml by mouth, four times daily, SWISH AND SWALLOW. 100 ml magnesium sulfate 40 mg/ml injection [...] a day for 6 days Oct, Active mometasone furoate 1 mg/ml topical cream (4 sources) Corticosteroid Start: 12-29-2023 End: 04-26-2024 Mometasone 0.1 % cream Discontinued 1 APPLIC TOPICAL Daily December 28, 2023 11:00pm April 26, 2024 3:07pm Apply to radiation site, once a day, AFTER radiation treatment. 1 ml morphine sulfate 2 mg/ml prefilled syringe (1 source) Opioid Agonist Start: 12-03-2023 End: 12-03-2023 2 mg, intravenous, Once, On [place] 12/03/23 at 0630, For 1 dose, Look-alike/sound -alike medication - verify indication for use. 2 ml ondansetron 2 mg/ml injection (1 source) Serotonin-3 Receptor Antagonist Start: 12-02-2023 End: 12-09-2023 take 4 mg intravenously every four hours as needed for nausea and vomiting 4 mg, intravenous, Every 4 hours PRN, nausea, vomiting, Starting on Thu12/02/23 at 2313, Administer over 2-5 minutes. oxyCODONE hydrochloride 5 mg oral tablet (11 sources) Opioid Agonist Start: 11-28-2023 End: 12-09-2023 [...] 11/28/2023 12/09/2023 Discontinued (Stop Taking at Discharge) Start: 10-29-2023 End: 11-05-2023 take 1 tablet by mouth every six hours as needed for pain oxyCODONE (ROXICODONE) 5 mg immediate release tablet Indications: S/P breast reconstruction, bilateral Take 1 tablet (5 mg total) by mouth every 6 (six) hours as needed for pain for up to 7 days. Max Daily Amount: 20 mg 28 tablet 10/29/2023 11/05/2023 Active silver sulfADIAZINE 10 mg/ml topical cream (3 sources) Sulfonamide Antibacterial Start: 02-10-2024 End: 04-26-2024 Silver Sulfadiazine (Silvadene) 1 % cream Discontinued 1 APPLIC TOPICAL Twice daily 50 February 10, 2024 12:00am April 26, 2024 3:07pm Apply to open areas on radiation site, twice a day until healed. 1000 ml sodium chloride 9 mg/ml injection [...] sodium chloride 0.9 % 250 mL IVPB spironolactone-niacinamide 5 -4 % gel (7 sources) Start: 04-06-2023 End: 10-16-2023 spironolactone-niacinamide 5 -4 % gel as directed, Refills(s) 0 04/06/2023 10/16/2023 Discontinued (Dose adjustment) Start: 04-06-2023 spironolactone -niacinamide 5-4 % gel as directed, Refills(s) 0 04/06/2023 Active traZODone hydrochloride 50 mg oral tablet (20 sources) Serotonin Reuptake Inhibitor Start: 03-17-2018 End: 03-18-2024 take 1 tablet by mouth once daily traZODone (DESYREL) 50 mg tablet TAKE ONE TABLET BY MOUTH ONCE DAILY AT NIGHT 90 tablet 1 09/15/2023 03/18/2024 Discontinued (Therapy completed) Start: 03-17-2018 take 1 tablet by haydee th at bedtime traZODone (Desyrel) 50 MG tablet Take 50 mg by mouth at bedtime 03/04/2023 Active traZODone HCl Ac tive vancomycin 1,500 mg [...] Classification Problem Date Documented Da te Episodic/Chronic Administrative/social admission (1 source) Patient encounter status; Translations: [Other specified counseling] 02-15-2024 Episodic Asthma (20 sources) Exercise-induced asthma; Translations: [Exercise induced bronchospasm] Onset: 03-07-2022 03-07-2022 Chronic Bacterial infection; unspecified site (20 sources) 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; Translations: [Other mycobacterial infections] Onset: 12-30-2023 02-11-2024 Episodic Cancer of breast (20 sources) Infiltrating [...] [Unspecified secondary cataract] Onset: 01-31-2022 01-31-2022 Chronic E Codes: Adverse effects of medical drugs [...] Open wounds of head; neck; and trunk (4 sources) Disorder of breast; Translations: [Unspecified open wound of left breast, sequela] Onset: 02-26-2024 03-30-2024 Episodic Osteoarthritis (20 sources) Arthritis of left knee; Translations: [Unilateral primary osteoarthritis, left knee] Onset: 11-27-2021 11-27-2021 Chronic Other aftercare (11 sources) Postoperative visit; Translations: [Encounter for other specified surgical aftercare] 03-30-2024 Episodic Other aftercare (2 sources) Surgical follow-up; Translations: [Encounter for follow-up examination after completed treatment for conditions other than malignant neoplasm] 04-21-2024 Episodic Other aftercare (2 sources) Encounter for therapeutic drug level monitoring; Translations: [Encounter for therapeutic drug level monitoring] Onset: 04-20-2024 Episodic Other circulatory disease (1 source) H/O: artificial organ/tissue; Translations: [Presence of other vascular implants and grafts] Onset: 06-04-2023 Chronic Other ear and sense organ disorders (1 source) Sensorineural hearing loss, bilateral; Translations: [Sensorineural hearing loss, bilateral] 04-13-2024 Chronic Other eye disorders (1 source) Vitreous degeneration; Translations: [Vitreous degeneration, unspecified eye] Onset: 12-28-2023 Chronic Other eye disorders (20 sources) Hemorrhage of right vitreous body; Translations: [Vitreous hemorrhage, right eye] Onset: 12-30-2023 12-30-2023 Chronic Other gastrointestinal disorders (9 sources) Pelvic mass; Translations: [Intra-abdominal and pelvic swelling, mass and lump, unspecified site] Onset: 04-13-2024 04-13-2024 Episodic Other gastrointestinal disorders (1 source) Intra-abdominal and pelvic swelling, mass and lump, unspecified site; Translations: [Intra-abdominal and pelvic swelling, mass and lump, unspecified site] Onset: 04-13-2024 Episodic Other injuries and conditions due to external [...] (2 sources) Device in situ 06-04-2023 Episodic Skin and subcutaneous tissue infections (7 sources) Cutaneous mycobacterial infection; Translations: [Cutaneous infectious disease due to Mycobacteria] Onset: 12-02-2023 12-08-2023 Episodic Unclassified (1 source) Contact with and (suspected) exposure to covid-19; Translations: [Contact with and (suspected) exposure to covid-19] Unclassified (1 source) New Patient Onset: 04-13-2024 Unclassified (1 source) Post-op Problem Onset: 12-02-2023 Unclassified (1 source) INVASIVE CARCINOMA RIGHT Onset: 10-28-2023 Unclassified (1 source) Post-op Onset: 12-02-2023 Past or Other Problems Problem Classification Problem Date Documented Date Episodic/Chronic Acute and unspecified renal failure (20 sources) Acute renal failure syndrome; Translations: [Acute kidney failure, unspecified] Onset: 12-02-2023 12-28-2023 Episodic Cardiac dysrhythmias (20 sources) Palpitations; Translations: [Palpitations] Onset: 11-27-2021 11-27-2021 Episodic Chronic obstructive pulmonary disease and bronchiectasis (1 source) Bronchitis, not specified as acute or chronic Onset: 11-11-2021 Resolved: 11-11-2021 Episodic Complication of device; implant or graft (2 [...] 03-30-2024 03-07-2022 Nonmalignant breast conditions (20 sources) Cellulitis of breast; Translations: [Mastitis without abscess] Onset: 11-26-2023 12-04-2023 Episodic Other aftercare (2 sources) Encounter for other specified surgical aftercare; Translations: [Encounter for other specified surgical aftercare] Onset: 11-04-2023 Episodic Other screening for suspected conditions (not [...] Onset: 11-11-2021 Resolved: 11-11-2021 Episodic Ovarian cyst (20 sources) Complex ovarian cyst; Translations: [Other ovarian cyst, unspecified side] Onset: 05-26-2023 05-26-2023 Episodic Residual codes; unclassified (3 sources) Edema, unspecified; Translations: [Edema, unspecified] Onset: 10-14-2022 Episodic Residual codes; unclassified (20 sources) History of breast reconstruction; Translations: [Other specified postprocedural states] Onset: 10-28-2023 10-28-2023 Episodic Residual codes; unclassified (2 sources) Estrogen receptor positive status [ER+]; Translations: [Estrogen receptor positive status (ER+)] Onset: 12-04-2023 Episodic Residual codes; unclassified (2 sources) Acquired absence of bilateral breasts and nipples; Translations: [Acquired absence of bilateral breasts and nipples] Onset: 11-04-2023 Episodic Residual codes; unclassified (2 sources) Other specified postprocedural states; Translations: [Other specified postprocedural states] Onset: 10-28-2023 Episodic Residual codes; unclassified (7 sources) Bilateral acquired absence of breast; Translations: [Acquired absence of bilateral breasts and nipples] 11-04-2023 Episodic Residual codes; unclassified (2 sources) Localized edema; Translations: [Localized edema] Onset: 08-31-2023 Episodic Retinal detachments; defects; vascular occlusion; and retinopathy (20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 INF Anthony Heal Family History Adopted: Yes Problem Relation Age of Onset Heart attack Father Family Status - Relation Status Age at Father [facility] 36on 02-01-2024 36 Patient called stating that over the weekend she tested positive for strep and was prescribed Amoxicillin. [facility] 36on 01-26-2024 36 RN called to request most recent labs be faxed to [facility]. Fax number confirmed [facility] 36on 01-25-2024 36 I called they will call me back [facility] [address] Dr Coffey called and wanted to talk regarding pt as soon as possible. Office - [phone] Cell- [phone] [facility] Office Visiton 01-15-2024 Follow-up visit [id number] Ike Flannery 1970 F Date Provider Department Center 01/15/2024 [facility] INF Anthony Heal Family History Adopted: Yes Problem Relation Age of Onset Heart attack Father Family Status - Relation Status Age at Father Level of Service:39136 [place] OFFICE/OUTPATIENT ESTABLISHED MOD MDM 30 MIN [facility] 36on 01-12-2024 36 Patients specialty pharmacy is not able to order the tedizolid (Sivextro) do the the shortage of the medication. I will call our [facility] to see if we can get it in. Rx was called in to the [facility] they are able to fill the prescription. [facility] 36on 01-08-2024 36 Patient called stating that her IV antibiotics will be completed on 01/14 and that you were possibly going to do another IV antibiotic route. I saw you ordered Tedizolid and was going to fax that to her [facility]. Did you want any other IV antibiotics? Please Advise [facility] Orders Onlyon 01-04-2024 Orders Only [id number] Ike Flannery 1970 F Date Provider Department Center 01/04/2024 HERMAN [facility]ITAL [facility] INF Anthony Heal Family History Adopted: Yes Problem Relation Age of Onset Heart attack Father Family Status - Relation Status Age at Father [facility] Orders Onlyon 01-01-2024 Orders Only [id number] Ike Flannery 1970 F Date Provider Department Center 01/01/2024 [facility] INF Anthony Heal Family History Adopted: Yes Problem Relation Age of Onset Heart attack Father Family Status - Relation Status Age at Father [facility] 37on 12-30-2023 37 Keep taking current antibiotics for now. 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 We will reach out to your Oncologist about when to restart radiation therapy. We don't anticipate deferring it at this time. Follow-up in about 1 month [facility] Follow-Upon 12-30-2023 Follow-Up [id number] Ike Flannery 1970 Date Provider Department Center 12/30/2023 SCOTT CHU [facility] INF Anthony Heal Family History Adopted: Yes Problem Relation Age of Onset Heart attack Father Family Status - Relation Status Age at Father Level of Service:74971 [place] OFFICE/OUTPATIENT ESTABLISHED MOD MDM 30 MIN () Reason for Visit and Comments: Invasive ductal carcinoma [Other] [facility] ED Clinical Summaryon 2023 ED Clinical Summary ED Clinical Summary [address] [address] ED Clinical Summary Person Information Name: IKE FLANNERY [place] Age: 53 Years : 1970 Sex: Female Language: Peruvian PCP: RANDY CALLE DO Marital Status: Phone: [phone] Visit Id: Visit Reason: Eye problem; NO [...] 12/28/2023 21:34:41 12/28/2023 21:34:41 12/28/2023 21:34:41 ADDRESS: [address] [place] [phone] PHYS DOC NOTES: MEDICAL INFORMATION: Prescriptions Given: Medications to Continue with No Changes Other Medications chlorthalidone as directed. cyclobenzaprine as directed. lisinopril (lisinopril 20 mg Tab) 1 Tablets By Mouth every day. metoprolol as directed. spironolactone as directed. trazodone (traZODONE 50 mg Tab) By Mouth 2 times a day. PATIENT EDUCATION INFORMATION: Instructions: Vitreous Detachment Follow up: With: Address: When: Georgiana Justice [facility] [address] [place] [address] Business (1) In 1 day 12/29/2023 Comments: Please call first in the morning for same-day appointment With: Address: When: RANDY ALVA [address] [place], [place] [phone] Business (1) In 3 days DIAGNOSIS: Posterior vitreous detachment Normal [facility] ED Note-Physicianon 12-28-19 ED Note-Physician ED [...] and Complexity of Problems Differential Diagnosis: [] [facility] Data External documents reviewed: N/A My EKG [...] Georgiana Justice In 1 day 12/29/2023 EDT [facility] [address] [place] [address]- Business (1) Additional Instructions: Please call first in the morning for same-day appointment RANDY CALLE In 3 days [address] [place] [address] Business (1) Additional Instructions: Patient [...] Diagnostic Results No qualifying data available. Normal [facility] Comment on above: Result Comment: Elec tronically Signed By: Rusty Horton DO\.br\Date and Time Signed: 12/28/23 21:30 EDT ED Patient Summaryon 024 ED Patient Summary ED Patient Summary [place] [id number] Patient Discharge Instructions Person Information Name: IKE FLANNERY Age: 53 Years Arrival Date: 12/28/2023 20:23:14 Discharge Diagnosis: Posterior vitreous detachment Primary Care Physician: RANDY CALLE DO Provider Information Primary Provider: Rusty Horton DO Advanced Server Support Technician:None The exam and treatment you received in the Emergency Department were for an urgent problem and are not intended as complete care. It is important that you follow up with a doctor, nurse practitioner, or physician???s video production assistant for ongoing care. If your symptoms [...] Follow-up Instructions: With: Address: When: Georgiana Justice [facility] [address] [place] [address] Business (1) In 1 day 12/29/2023 Comments: Please call first in the morning for same-day appointment With: Address: When: RANDY HALLMAGALYS [address] [place], [place] [phone] [facility] (1) In 3 days In the event that this physician does not participate in your insurance network, please consult with your insurance company to find a nearby participating provider. Patient Education Materials: Vitreous Detachment A MESSAGE TO ALL PATIENTS REGARDING OPIOIDS PRESCRIPTION OPIOIDS: WHAT YOU NEED TO KNOW Prescription opioids can be used to help relieve lnseeejb-vq-banlrw pain and are often prescribed following a [...] Administration (www.fda.gov (more content not included)... Normal [facility] Office Visiton 12-11-2023 Follow-up visit [id number] Ike Flannery 1970 F Date Provider Department Center 12/11/2023 SANDRITA HOFF [facility] INF Anthony Heal Family History Adopted: Yes Problem Relation Age of Onset Heart attack Father Family Status - Relation Status Age at Father Level of Service:77317 [place] OFFICE/OUTPATIENT [facility] MDM 60 MINUTES Normal [facility] CBC AND AUTO DIFFon 12-09-19 24 ABSOLUTE BASOPHIL 0.0 X10E9/L Normal 0.0-0.2 [facility] Comment on above: Performed By: #### C BCA, CMP, , 2776-03 ####[facility] ([id number])5200 [facility] [place] [address] ABSOLUTE NEUTROPHIL 3.6 X10E9/L Normal 1.5-6.6 [facility] Comment on above: Performed By: #### C BCA, CMP, , 2776-03 ####[facility] ([id number])5200 [facility] [place] [address] Basophils/100 WBC (Bld) 0.2 % Normal [facility] Comment on above: Performed By: #### C BCA, CMP, , 2776-03 ####[facility] ([id number])5200 [facility] [place] [address] Eosinophils (Bld) [#/Vol] 0.0 10*3/uL Normal 0.0-0.4 [facility] Comment on above: Performed By: #### C BCA, CMP, , 2776-03 ####[facility] ([id number])5200 [facility] [place] [address] Eosinophils/100 WBC (Bld) 0.0 % Normal [facility] Comment on above: Performed By: #### C BCA, CMP, , 2776-03 ####[facility] ([id number])5200 [facility] [place] [address] Erythrocyte distribution width (RBC) [Ratio] 14.6 % Normal 11.5-15.0 [facility] Comment on above: Performed By: #### C BCA, CMP, , 2776-03 ####[facility] ([id number])5200 [facility] [place] [address] Hematocrit (Bld) [Volume fraction] 22.0 % Low 35-47 [facility] Comment on above: Performed By: #### C BCA, CMP, , 2776-03 ####[facility] ([id number])5200 [place] [address] Hemoglobin (Bld) [Mass/Vol] 7.4 g/dL Low 11.7-15.5 [facility] Comment on above: Performed By: #### C BCA, CMP, , 2776-03 ####[facility] ([id number])5200 [facility] [place] [address] Lymphocytes (Bld) [#/Vol] 0.5 10*3/uL Low 1.0-3.5 [facility] Comment on above: Performed By: #### C BCA, CMP, , 2776-03 ####[facility] ([id number])5200 [facility] [place] [address] Lymphocytes/100 WBC (Bld) 12.0 % Normal [facility] Comment on above: Performed By: #### C BCA, CMP, , 2776-03 ####[facility] ([id number])5200 [facility] [place] [address] MCH (RBC) [Entitic mass] 29.9 pg Normal 27-34 [facility] Comment on above: Performed By: #### C BCA, CMP, , 2776-03 ####[facility] ([id number])5200 [facility] [place] [address] MCHC (RBC) [Mass/Vol] 33.8 g/dL Normal 32-36 [facility] Comment on above: Performed By: #### C BCA, CMP, , 2776-03 ####[facility] ([id number])5200 [facility] [place] [address] MCV (RBC) [Entitic vol] 89 fL Normal 80-100 P [facility] Comment on above: Performed By: #### C BCA, CMP, , 2776-03 ####[facility] ([id number])5200 [place] [address] Monocytes (Bld) [#/Vol] 0.2 10*3/uL Normal 0-0.9 [facility] Comment on above: Performed By: #### C BCA, CMP, , 2776-03 ####[facility] ([id number])5200 [place] [address] Monocytes/100 WBC (Bld) 4.6 % Normal [facility] Comment on above: Performed By: #### C BCA, CMP, , 2776-03 ####[facility] ([id number])5200 [place] [address] Neutrophils/100 WBC (Bld) 83.2 % Normal [facility] Comment on above: Performed By: #### C BCA, CMP, , 2776-03 ####[facility] ([id number])5200 [place] [address] Platelet mean volume (Bld) [Entitic vol] 7.6 fL Normal 7-12 [facility] Comment on above: Performed By: #### C BCA, CMP, , 2776-03 ####[facility] ([id number])5200 [place] [address] Platelets (Bld) [#/Vol] 153 10*3/uL Normal 150-450 [facility] Comment on above: Performed By: #### C BCA, CMP, , 2776-03 ####[facility] ([id number])5200 [place] [address] RBC COUNT 2.48 X10E12/L Low 3.80-5.20 [facility] Comment on above: Performed By: #### C BCA, CMP, , 2776-03 ####[facility] ([id number])5200 [place] [address] WBC (Bld) [#/Vol] 4.3 10*3/uL Normal 4.0-11.0 [facility] Comment on above: Performed By: #### C LUCIA, CMP, 18572-2, 2777-1 ####[facility] ([id number])5200 [place] [address] CBC auto differentialon 10-0 Basophils (Bld) [#/Vol] 0.0 10*3/uL [facility] Basophils/100 WBC (Bld) 0.2 % P [facility] Eosinophils (Bld) [#/Vol] 0.0 10*3/uL [facility] Eosinophils/100 WBC (Bld) 0.0 % [facility] Erythrocyte distribution width (RBC) [Ratio] 14.6 % 11.5 - 15.0 % [facility] Hematocrit (Bld) [Volume fraction] 22.0 % Low 35 - 47 % [facility] Hemoglobin (Bld) [Mass/Vol] 7.4 g/dL Low 11.7 - 15.5 g/dL [facility] Interpretation and review of laboratory results Abnormal [facility] Lymphocytes (Bld) [#/Vol] 0.5 10*3/uL Low [facility] Lymphocytes/100 WBC (Bld) 12.0 % [facility] MCH (RBC) [Entitic mass] 29.9 pg 27 - 34 pg [facility] MCHC (RBC) [Mass/Vol] 33.8 g/dL 32 - 3 6 g/dL [facility] MCV (RBC) [Entitic vol] 89 fL 80 - 100 fL [facility] Monocytes (Bld) [#/Vol] 0.2 10*3/uL [facility] Monocytes/100 WBC (Bld) 4.6 % [facility] Neutrophils (Bld) [#/Vol] 3.6 10*3/uL [facility] Neutrophils/100 WBC (Bld) 83.2 % [facility] Platelet mean volume (Bld) [Entitic vol] 7.6 fL 7 - 12 fL [facility] Platelets (Bld) [#/Vol] 153 10*3/uL [facility] RBC (Bld) [#/Vol] 2.48 10*6/uL Low [facility] WBC corrected for nucl RBC Auto (Bld) [#/Vol] 4.3 [facility]PREHENS[facility]ABOLIC [facility] [place] 12-09-2023 Albumin [Mass/Vol] 3.2 g/dL Normal 3.2-5.3 [facility] Comment on above: Performed By: #### C BCA, CMP, , 2776-03 ####[facility] ([id number])[address] [place] [address] ALP [Catalytic activity/Vol] 66 U/L Normal 39-130 [facility] Comment on above: Performed By: #### C BCA, CMP, , 2776-03 ####[facility] ([id number])5200 [place] [address] ALT [Catalytic activity/Vol] 30 U/L Normal 0-31 [facility] Comment on above: Performed By: #### C BCA, CMP, , 2776-03 ####[facility] ([id number])5200 [place] [address] Anion gap [Moles/Vol] 7 mmol/L Normal 5-15 [facility] Comment on above: Performed By: #### C BCA, CMP, , 2776-03 ####[facility] ([id number])[address] [place] [address] AST [Catalytic activity/Vol] 39 U/L Normal 0-41 [facility] Comment on above: Performed By: #### C BCA, CMP, , 2776-03 ####[facility] ([id number])[address] [place] [address] Bilirubin [Mass/Vol] 0.6 mg/dL Normal 0.3-1.2 [facility] Comment on above: Performed By: #### C BCA, CMP, , 2776-03 ####[facility] ([id number])5200 [facility] [place] [address] Calcium [Mass/Vol] 8.7 mg/dL Normal 8.5-10.5 [facility] Comment on above: Performed By: #### C BCA, CMP, , 2776-03 ####[facility] ([id number])5200 [facility] [place] [address] Chloride [Moles/Vol] 106 mmol/L Normal 98-109 [facility] Comment on above: Performed By: #### C BCA, CMP, , 2776-03 ####[facility] ([id number])5200 [facility] [place] [address] CO2 [Moles/Vol] 26 mmol/L Normal 22-32 [facility] Comment on above: Performed By: #### C BCA, CMP, , 2776-03 ####[facility] ([id number])5200 [facility] [place] [address] Creatinine [Mass/Vol] 1.50 mg/dL High 0.40-1.00 [facility] Comment on above: Result Comment: METH OD TRACEABLE TO IDMS STANDARD Performed By: #### C LUCIA CMP, , 2776-03 ####[facility] ([id number])5200 [facility] [place] [address] GFR/1.73 sq M.predicted among non-blacks MDRD (S/P/Bld) [Vol rate/Area] 41 mL/min/{1.73_m2} Low >59 [facility] Comment on above: Result Comment: Reported eGFR is based on the CKD-EPI 2020 equation that does not use a race coefficient. Performed By: #### C BCA, CMP, , 2776-03 ####[facility] ([id number])5200 [place] [address] Glucose [Mass/Vol] 160 mg/dL High 65-99 [facility] Comment on above: Performed By: #### C BCA, CMP, 2776-03 ####[facility] ([id number])5200 [place] [address] Potassium [Moles/Vol] 3.8 mmol/L Normal 3.5-5.0 [facility] Comment on above: Performed By: #### C BCA, CMP, , 2776-03 ####[facility] ([id number])5200 [place] [address] Protein [Mass/Vol] 5.9 g/dL Low 6.0-8.0 [facility] Comment on above: Performed By: #### C BCA, CMP, , 2776-03 ####[facility] ([id number])5200 [place] [address] Sodium [Moles/Vol] 139 mmol/L Normal 134-146 [facility] Comment on above: Performed By: #### C BCA, CMP, , 2776-03 ####[facility] ([id number])5200 [place] [address] Urea nitrogen [Mass/Vol] 23 mg/dL Normal 5-23 [facility] Comment on above: Performed By: #### C BCA, CMP, 2776-03 ####[facility] ([id number])5200 [place] [address] Comprehensive metabolic pane rome 12-09-2023 Albumin [Mass/Vol] 3.2 g/dL 3.2 - 5.3 g/dL [facility] ALP [Catalytic activity/Vol] 66 U/L 39 - 130 U/L [facility] ALT No additional P-5'-P [Catalytic activity/Vol] 30 U/L 0 - 31 U/L [facility] Anion gap [Moles/Vol] 7 mmol/L 5 - 15 mmol/L [facility] AST [Catalytic activity/Vol] 39 U/L 0 - 41 U/L [facility] Bilirubin [Mass/Vol] 0.6 mg/dL 0.3 - 1 .2 mg/dL [facility] Calcium [Mass/Vol] 8.7 mg/dL 8.5 - 10. 5 mg/dL [facility] Chloride [Moles/Vol] 106 mmol/L 98 - 10 9 mmol/L [facility] CO2 [Moles/Vol] 26 mmol/L 22 - 32 mmol/L [facility] Creatinine [Mass/Vol] 1.50 mg/dL High 0.40 - 1.00 mg/dL [facility] Comment on above: METHOD TRACEABLE TO [facility] STANDARD eGFR (CKD-EPI)non-race dependent 41 Low - PINF [facility] Comment on above: Reported eGFR is based on the CKD-EPI 2020 equation that does not use a race coefficient. Glucose [Mass/Vol] 160 mg/dL High 65 - 99 mg/dL [facility] Interpretation and review of laboratory results Abnormal [facility] Potassium [Moles/Vol] 3.8 mmol/L 3.5 - 5.0 mmol/L [facility] Protein [Mass/Vol] 5.9 g/dL Low 6.0 - 8.0 g/dL [facility] Sodium [Moles/Vol] 139 mmol/L 134 - 146 mmol/L [facility] Urea nitrogen [Mass/Vol] 23 mg/dL 5 - 23 mg/dL [facility] MAGNESIUMon 12-09-2023 Magnesium [Mass/Vol] 1.8 mg/dL Normal 1.8-2.6 [facility] Comment on above: Performed By: #### C HILLARY MYERS, 08098-0, 2777-1 ####[facility] ([id number])[address] [place] [address] Magnesiumon 12-09-2023 Magnesium [Mass/Vol] 1.8 mg/dL 1.8 - 2 .6 mg/dL [facility] No Panel Informationon 12-08 [facility] PHOSPHORUSon 12-09-2023 Phosphate [Mass/Vol] 3.7 mg/dL Normal 2.4-4.9 [facility] Comment on above: Performed By: #### C HILLARY MYERS, 99577-7, 2777-1 ####[facility] ([id number])[address] [place] [address] Phosphoruson 12-09-2023 Phosphate [Mass/Vol] 3.7 mg/dL 2.4 - 4 .9 mg/dL [facility] Bacteria identified Aer cx N om (Bld)on 12-08-2023 Service comment (Unsp spec) [Interp] SUBOPTIMAL VOLUME OF BLOOD COLLECTED, RESULTS MAY BE AFFECTED. [facility] Service comment (Unsp spec) [Interp] NO GROWTH 5 DAYS [facility] Service comment (Unsp spec) [Interp] SUBOPTIMAL VOLUME OF BLOOD COLLECTED, RESULTS MAY BE AFFECTED. [facility] Service comment (Unsp spec) [Interp] NO GROWTH 5 DAYS [facility] CBC AND AUTO DIFFon 12-08-19 ABSOLUTE BASOPHIL 0.0 X10E9/L Normal 0.0-0.2 [facility] Comment on above: Performed By: #### B MP, CBC #### [facility] ([id number]) [address] [place] [address] #### 6793-4 #### [facility] ([id number]) [address] [facility], [address] [place] [address] Basophils/100 WBC (Bld) 1.0 % Normal P [facility] Comment on above: Performed By: #### B MP, CBC #### [facility] ([id number]) [address] [place] [address] #### [id number] #### [facility] ([id number]) [address] [facility], [address] [place] [address] Eosinophils (Bld) [#/Vol] 0.2 10*3/uL Normal 0.0-0.4 [facility] Comment on above: Performed By: #### B MP, CBC #### [facility] ([id number]) [address] [place] [address] #### 6793-4 #### [facility] ([id number]) [address], [address] [place] [address] Eosinophils/100 WBC (Bld) 7.0 % Normal [facility] Comment on above: Performed By: #### B MP, CBC #### [facility] ([id number]) [address] [place] [address] #### [id number] #### [facility] ([id number]) [address], [address] [place] [address] Erythrocyte distribution width (RBC) [Ratio] 14.4 % Normal 11.5-15.0 [facility] Comment on above: Performed By: #### B MP, CBC #### [facility] ([id number]) [address] [place] [address] #### [id number] #### [facility] ([id number]) [address], [address] [place] [address] Hematocrit (Bld) [Volume fraction] 23.1 % Low 35-47 [facility] Comment on above: Performed By: #### B MP, CBC #### [facility] ([id number]) [address] [place] [address] #### 6793-4 #### [facility] ([id number]) [address], [address] [place] [address] Hemoglobin (Bld) [Mass/Vol] 8.1 g/dL Low 11.7-15.5 [facility] Comment on above: Performed By: #### B MP, CBC #### [facility] ([id number]) [address] [place] [address] #### 6793-4 #### [facility] ([id number]) [address] [address] [place] [address] Lymphocytes (Bld) [#/Vol] 0.4 10*3/uL Low 1.0-3.5 [facility] Comment on above: Performed By: #### B MP, CBC #### [facility] ([id number]) [address] [place] [address] #### 6793-4 #### [facility] ([id number]) [address] [facility], [address] [place] [address] Lymphocytes/100 WBC (Bld) 14.0 % Normal [facility] Comment on above: Performed By: #### B MP, CBC #### [facility] ([id number]) [address] [place] [address] #### 6793-4 #### [facility] ([id number]) [address] [facility], [address] [place] [address] MCH (RBC) [Entitic mass] 31.1 pg Normal 27-34 [facility] Comment on above: Performed By: #### B MP, CBC #### [facility] ([id number]) [address] [place] [address]25 #### 6793-4 #### [facility] ([id number]) [address] [facility], [address] [place] [address] MCHC (RBC) [Mass/Vol] 35.1 g/dL Normal 32-36 [facility] Comment on above: Performed By: #### B MP, CBC #### [facility] ([id number]) [address] [place] [address] #### 6793-4 #### [facility] ([id number]) [address] [facility] [facility], [address] [place] [address] MCV (RBC) [Entitic vol] 89 fL Normal 80-100 P [facility] Comment on above: Performed By: #### B MP, CBC #### [facility] ([id number]) [address] [place] [address] #### 6793-4 #### [facility] ([id number]) [address], [address] [place] [address] Monocytes (Bld) [#/Vol] 0.3 10*3/uL Normal 0-0.9 [facility] Comment on above: Performed By: #### B MP, CBC #### [facility] ([id number]) [address] [place] [address] #### 6793-4 #### [facility] ([id number]) [address], [address] [place] [address] Monocytes/100 WBC (Bld) 9.0 % Normal P [facility] Comment on above: Performed By: #### B MP, CBC #### [facility] ([id number]) [address] [place] [address] #### 6793-4 #### [facility] ([id number]) [address] [address] [place] [address] Neutrophils (Bld) [#/Vol] 2.0 10*3/uL Normal 1.5-6.6 [facility] Comment on above: Performed By: #### B MP, CBC #### [facility] ([id number]) [address] [place] [address] #### 6793-4 #### [facility] ([id number]) [address], [address] [place] [address] Platelet mean volume (Bld) [Entitic vol] 7.5 fL Normal 7-12 [facility] Comment on above: Performed By: #### B MP, CBC #### [facility] ([id number]) [address] [place] [address]781 #### 6793-4 #### [facility] ([id number]) [address] [address] [place] [address] Platelets (Bld) [#/Vol] 147 10*3/uL Low 150-450 [facility] Comment on above: Performed By: #### B MP, CBC #### [facility] ([id number]) [address] [place] [address]792 #### 6793-4 #### [facility] ([id number]) [address], [address] [place] [address] RBC COUNT 2.61 X10E12/L Low 3.80-5.20 [facility] Comment on above: Performed By: #### B MP, CBC #### [facility] ([id number]) [address] [place] [address]70 #### 6793-4 #### [facility] ([id number]) [address], [address] [place] [address] RBC morphology finding Nom (Bld) REVIEWED Normal [facility] Comment on above: Performed By: #### Willis MP, CBC #### [facility] ([id number]) [address] [place] [address] 81595 #### 6793-4 #### [facility] ([id number]) [address], [address] [place] [address] SEG NEUTROPHIL 69.0 % Normal [facility] Comment on above: Performed By: #### Willis MP, CBC #### [facility] ([id number]) [address] [place] [address] #### 6793-4 #### [facility] ([id number]) [address], [address] [place] [address] WBC (Bld) [#/Vol] 2.9 10*3/uL Low 4.0-11.0 [facility] Comment on above: Performed By: #### B MP, CBC #### [facility] ([id number]) [address] [place] [address] 14493 #### 6793-4 #### [facility] ([id number]) [address], [address] [place] [address] CBC auto differentialon 10-0 Basophils (Bld) [#/Vol] 0.0 10*3/uL [facility] Basophils/100 WBC (Bld) 1.0 % P [facility] Eosinophils (Bld) [#/Vol] 0.2 10*3/uL [...] Interpretation and review of laboratory results Abnormal [facility] Lymphocytes (Bld) [#/Vol] 0.4 10*3/uL [...] Monocytes/100 WBC (Bld) 9.0 % P [facility] Neutrophils (Bld) [#/Vol] 2.0 10*3/uL [facility] Platelet mean volume (Bld) [Entitic vol] 7.5 fL 7 - 12 fL [facility] Platelets (Bld) [#/Vol] 147 10*3/uL Low [facility] Polymorphonuclear cells/100 WBC (Bld) REVIEWED [facility] RBC (Bld) [#/Vol] 2.61 10*6/uL Low [facility] Segmented neutrophils/100 WBC (Bld) 69.0 % [facility] WBC corrected for nucl RBC Auto (Bld) [#/Vol] 2.9 Low [facility] COMPREHENSIVE METABOLIC PANE [place] 12-08-2023 Albumin [Mass/Vol] 3.2 g/dL Normal 3.2-5.3 [facility] Comment on above: Performed By: #### Willis MP, CBC #### [facility] ([id number]) [address] [place] [address] #### [id number] #### [facility] ([id number]) [address], [address] [place] [address] ALP [Catalytic activity/Vol] 64 U/L Normal 39-130 [facility] Comment on above: Performed By: #### Willis MP, CBC #### [facility] ([id number]) [address] [place] [address]384 #### 6793-4 #### [facility] ([id number]) [address], [address] [place] [address] ALT [Catalytic activity/Vol] 18 U/L Normal 0-31 [facility] Comment on above: Performed By: #### Willis ALTAMIRANO, CBC #### [facility] ([id number]) [address] [place] [address]251 #### 6793-4 #### [facility] ([id number]) [address], [address] [place] [address] Anion gap [Moles/Vol] 8 mmol/L Normal 5-15 [facility] Comment on above: Performed By: #### Willis MP, CBC #### [facility] ([id number]) [address] [place] [address] 04449 #### [id number] #### [facility] ([id number]) [address], [address] [place] [address] AST [Catalytic activity/Vol] 28 U/L Normal 0-41 [facility] Comment on above: Performed By: #### Willis MP, CBC #### [facility] ([id number]) [address] [place] [address] 56682 #### 6793-4 #### [facility] ([id number]) [address], [address] [place] [address] Bilirubin [Mass/Vol] 0.6 mg/dL Normal 0.3-1.2 [facility] Comment on above: Performed By: #### Willis MP, CBC #### [facility] ([id number]) [address] [place] [address] 64120 #### 6793-4 #### [facility] ([id number]) [address], [address] [place] [address] Calcium [Mass/Vol] 8.7 mg/dL Normal 8.5-10.5 [facility] Comment on above: Performed By: #### Willis MP, CBC #### [facility] ([id number]) [address] [place] [address] 22704 #### 6793-4 #### [facility] ([id number]) [address], [address] [place] [address] Chloride [Moles/Vol] 101 mmol/L Normal 98-109 [facility] Comment on above: Performed By: #### Willis MP, CBC #### [facility] ([id number]) [address] [place] [address] 65744 #### 6793-4 #### [facility] ([id number]) [address], [address] [place] [address] CO2 [Moles/Vol] 27 mmol/L Normal 22-32 [facility] Comment on above: Performed By: #### Willis MP, CBC #### [facility] ([id number]) [address] [place] [address] 02624 #### 6793-4 #### [facility] ([id number]) [address], [address] [place] [address] Creatinine [Mass/Vol] 1.89 mg/dL High 0.40-1.00 [facility] Comment on above: Result Comment: METH OD TRACEABLE TO IDMS STANDARD Performed By: #### B ADARSH, CBC #### [facility] ([id number]) [address] [place] [address] 28075 #### 6793-4 #### [facility] ([id number]) [address] [facility], [address] [address] GFR/1.73 sq M.predicted among non-blacks MDRD (S/P/Bld) [Vol rate/Area] 31 mL/min/{1.73_m2} Low >59 [facility] Comment on above: Result Comment: Reported eGFR is based on the CKD-EPI 2020 equation that does not use a race coefficient. Performed By: #### B ADARSH, CBC #### [facility] ([id number]) [address] [place] [address]32 #### 6793-4 #### [facility] ([id number]) [address] [facility], [address] [address] Glucose [Mass/Vol] 99 mg/dL Normal 65-99 [facility] Comment on above: Performed By: #### Willis ALTAMIRANO, CBC #### [facility] ([id number]) [address] [place] [address]127 #### 6793-4 #### [facility] ([id number]) [facility] [facility] [facility], [address] [address] Potassium [Moles/Vol] 3.2 mmol/L Low 3.5-5.0 [facility] Comment on above: Performed By: #### Willis ALTAMIRANO, CBC #### [facility] ([id number]) [address] [place] [address]119 #### 6793-4 #### [facility] ([id number]) [address] [facility] [facility] [facility], [address] [address] Protein [Mass/Vol] 5.6 g/dL Low 6.0-8.0 [facility] Comment on above: Performed By: #### B MP, CBC #### [facility] ([id number]) [address] [place] [address] #### 6793-4 #### [facility] ([id number]) [address] [place] [address] Sodium [Moles/Vol] 136 mmol/L Normal 134-146 [facility] Comment on above: Performed By: #### B MP, CBC #### [facility] ([id number]) [address] [place] [address] #### 6793-4 #### [facility] ([id number]) [address] [place] [address] Urea nitrogen [Mass/Vol] 24 mg/dL High 5-23 [facility] Comment on above: Performed By: #### B MP, CBC #### [facility] ([id number]) [address] [place] [address] #### 6793-4 #### [facility] ([id number]) [address] [place] [address] Comprehensive metabolic pane rome 12-08-2023 Albumin [Mass/Vol] 3.2 g/dL 3.2 - 5.3 g/dL [facility] ALP [Catalytic activity/Vol] 64 U/L 39 - 130 U/L [facility] ALT No additional P-5'-P [Catalytic activity/Vol] 18 U/L 0 - 31 U/L [facility] Anion gap [Moles/Vol] 8 mmol/L 5 - 15 mmol/L [facility] AST [Catalytic activity/Vol] 28 U/L 0 - 41 U/L [facility] Bilirubin [Mass/Vol] 0.6 mg/dL 0.3 - 1 .2 mg/dL [facility] Calcium [Mass/Vol] 8.7 mg/dL 8.5 - 10. 5 mg/dL [facility] Chloride [Moles/Vol] 101 mmol/L 98 - 10 9 mmol/L [facility] CO2 [Moles/Vol] 27 mmol/L 22 - 32 mmol/L [facility] Creatinine [Mass/Vol] 1.89 mg/dL High 0.40 - 1.00 mg/dL [facility] Comment on above: METHOD TRACEABLE TO [facility] STANDARD eGFR (CKD-EPI)non-race dependent 31 Low - PINF [facility] Comment on above: Reported eGFR is based on the CKD-EPI 2020 equation that does not use a race coefficient. Glucose [Mass/Vol] 99 mg/dL 65 - 99 mg/dL [facility] Potassium [Moles/Vol] 3.2 mmol/L Low 3.5 - 5.0 mmol/L [facility] Protein [Mass/Vol] 5.6 g/dL Low 6.0 - 8.0 g/dL [facility] Sodium [Moles/Vol] 136 mmol/L 134 - 146 mmol/L [facility] Urea nitrogen [Mass/Vol] 24 mg/dL High 5 - 23 mg/dL [facility] MAGNESIUMon 12-08-2023 Magnesium [Mass/Vol] 2.5 mg/dL Normal 1.8-2.6 [facility] Comment on above: Performed By: #### 2 823-3, 68763-8 ####[facility] ([id number])[address] [place] [address] Magnesium [Mass/Vol] 1.5 mg/dL Low 1.8-2.6 [facility] Comment on above: Performed By: #### B MP, CBC #### [facility] ([id number]) [address] [place] [address] #### [phone] #### [facility] ([id number]) [address] [facility], [address] [place] [address] Magnesiumon 12-08-2023 Magnesium [Mass/Vol] 2.5 mg/dL 1.8 - 2 .6 mg/dL [facility] Magnesium [Mass/Vol] 1.5 mg/dL Low 1.8 - 2 .6 mg/dL [facility] No Panel Informationon 12-07 [facility] Interpretation and review of laboratory results Abnormal [facility] PHOSPHORUSon 12-08-2023 Phosphate [Mass/Vol] 4.1 mg/dL Normal 2.4-4.9 [facility] Comment on above: Performed By: #### B MP, CBC #### [facility] ([id number]) [address] [place] [address] #### 6793-4 #### [facility] ([id number]) [address] [place] [address], [address] [place] [address] POTASSIUMon 12-08-2023 Potassium [Moles/Vol] 3.8 mmol/L Normal 3.5-5.0 [facility] Comment on above: Performed By: #### 2 823-3 ####[facility] ([id number])[address] [place] [address] Potassium [Moles/Vol] 3.3 mmol/L Low 3.5-5.0 [facility] Comment on above: Performed By: #### 2 823-3, 12053-2 ####[facility] ([id number])[address] [place] [address] Phosphoruson 12-08-2023 Phosphate [Mass/Vol] 4.1 mg/dL 2.4 - 4 .9 mg/dL [facility] Potassiumon 12-08-2023 Potassium [Moles/Vol] 3.8 mmol/L 3.5 - 5.0 mmol/L [facility] Potassium [Moles/Vol] 3.3 mmol/L Low 3.5 - 5.0 mmol/L [facility] Potassium [Moles/Vol]on [facility] Interpretation and review of laboratory results Abnormal [facility] CBC AND AUTO DIFFon 12-07-19 24 ABSOLUTE BASOPHIL 0.0 X10E9/L Normal 0.0-0.2 [facility] Comment on above: Performed By: #### B MP, CBC #### [facility] ([id number]) [address] [place] [address] #### 6793-4 #### [facility] ([id number]) [address], [address] [place] [address] ABSOLUTE NEUTROPHIL 1.6 X10E9/L Normal 1.5-6.6 [facility] Comment on above: Performed By: #### B MP, CBC #### [facility] ([id number]) [address] [place] [address] #### 6793-4 #### [facility] ([id number]) [address] [facility] [facility], [address] [place] [address] Basophils/100 WBC (Bld) 0.7 % Normal [facility] Comment on above: Performed By: #### B MP, CBC #### [facility] ([id number]) [address] [place] [address] #### 6793-4 #### [facility] ([id number]) [address] [place] [address] Eosinophils (Bld) [#/Vol] 0.2 10*3/uL Normal 0.0-0.4 [facility] Comment on above: Performed By: #### B MP, CBC #### [facility] ([id number]) [address] [place] [address] #### 6793-4 #### [facility] ([id number]) [address], [address] [place] [address] Eosinophils/100 WBC (Bld) 7.0 % Normal [facility] Comment on above: Performed By: #### B MP, CBC #### [facility] ([id number]) [address] [place] [address] #### 6793-4 #### [facility] ([id number]) [address] [place] [address] Erythrocyte distribution width (RBC) [Ratio] 14.2 % Normal 11.5-15.0 [facility] Comment on above: Performed By: #### B MP, CBC #### [facility] ([id number]) [address] [place] [address]185 #### 6793-4 #### [facility] ([id number]) [address] [place] [address] Hematocrit (Bld) [Volume fraction] 22.3 % Low 35-47 [facility] Comment on above: Performed By: #### B MP, CBC #### [facility] ([id number]) [address] [place] [address] #### 6793-4 #### [facility] ([id number]) [address] [address] [place] [address] Hemoglobin (Bld) [Mass/Vol] 7.8 g/dL Low 11.7-15.5 [facility] Comment on above: Performed By: #### B MP, CBC #### [facility] ([id number]) [address] [place] [phone] #### [id number] #### [facility] ([id number]) [address] [address] [place] [address] Lymphocytes (Bld) [#/Vol] 0.5 10*3/uL Low 1.0-3.5 [facility] Comment on above: Performed By: #### B MP, CBC #### [facility] ([id number]) [address] [place] [id number] #### [id number] #### [facility] ([id number]) [address] [address] [place] [address] Lymphocytes/100 WBC (Bld) 19.6 % Normal [facility] Comment on above: Performed By: #### B MP, CBC #### [facility] ([id number]) [address] [place] [id number] #### [id number] #### [facility] ([id number]) [address] [place] [address] MCH (RBC) [Entitic mass] 30.9 pg Normal 27-34 [facility] Comment on above: Performed By: #### B MP, CBC #### [facility] ([id number]) [address] [place] [id number] #### [id number] #### [facility] ([id number]) [address] [facility] [facility], [address] [place] [address] MCHC (RBC) [Mass/Vol] 34.9 g/dL Normal 32-36 [facility] Comment on above: Performed By: #### B MP, CBC #### [facility] ([id number]) [address] [place] [address] #### [id number] #### [facility] ([id number]) [address] [facility], [address] [place] [address] MCV (RBC) [Entitic vol] 88 fL Normal 80-100 P [facility] Comment on above: Performed By: #### Willis MP, CBC #### [facility] ([id number]) [address] [place] [address] 90717 #### [id number] #### [facility] ([id number]) [address], [address] [place] [address] Monocytes (Bld) [#/Vol] 0.3 10*3/uL Normal 0-0.9 [facility] Comment on above: Performed By: #### B MP, CBC #### [facility] ([id number]) [address] [place] [address] 46791 #### [id number] #### [facility] ([id number]) [address], [address] [place] [address] Monocytes/100 WBC (Bld) 12.5 % Normal P [facility] Comment on above: Performed By: #### B MP, CBC #### [facility] ([id number]) [address] [place] [address] 65500 #### [id number] #### [facility] ([id number]) [address] [place] [address] Neutrophils/100 WBC (Bld) 60.2 % Normal [facility] Comment on above: Performed By: #### B MP, CBC #### [facility] ([id number]) [address] [place] [address] 64963 #### [id number] #### [facility] ([id number]) [address] [place] [address] Platelet mean volume (Bld) [Entitic vol] 6.9 fL Low 7-12 [facility] Comment on above: Performed By: #### B MP, CBC #### [facility] ([id number]) [address] [place] [address] 32146 #### [id number] #### [facility] ([id number]) [address] [address] [place] [address] Platelets (Bld) [#/Vol] 150 10*3/uL Normal 150-450 [facility] Comment on above: Performed By: #### B MP, CBC #### [facility] ([id number]) [address] [place] [address] 96281 #### [id number] #### [facility] ([id number]) [address] [address] [place] [address] RBC COUNT 2.52 X10E12/L Low 3.80-5.20 [facility] Comment on above: Performed By: #### B MP, CBC #### [facility] ([id number]) [address] [place] [address] 14872 #### [id number] #### [facility] ([id number]) [address] [place] [address], [address] [place] [address] WBC (Bld) [#/Vol] 2.7 10*3/uL Low 4.0-11.0 [facility] Comment on above: Performed By: #### B MP, CBC #### [facility] ([id number]) [address] [place] [address] 58943 #### [id number] #### [facility] ([id number]) [address] [place] [address], [address] [place] [address] CBC auto differentialon 10-0 Basophils (Bld) [#/Vol] 0.0 10*3/uL [facility] Basophils/100 WBC (Bld) 0.7 % [facility] Eosinophils (Bld) [#/Vol] 0.2 10*3/uL [facility] Eosinophils/100 WBC (Bld) 7.0 % [facility] Erythrocyte distribution width (RBC) [Ratio] 14.2 % 11.5 - 15.0 % [facility] Hematocrit (Bld) [Volume fraction] 22.3 % Low 35 - 47 % [facility] Hemoglobin (Bld) [Mass/Vol] 7.8 g/dL Low 11.7 - 15.5 g/dL [facility] Interpretation and review of laboratory results Abnormal [facility] Lymphocytes (Bld) [#/Vol] 0.5 10*3/uL Low [facility] Lymphocytes/100 WBC (Bld) 19.6 % [facility] MCH (RBC) [Entitic mass] 30.9 pg 27 - 34 pg [facility] MCHC (RBC) [Mass/Vol] 34.9 g/dL 32 - 3 6 g/dL [facility] MCV (RBC) [Entitic vol] 88 fL 80 - 100 fL [facility] Monocytes (Bld) [#/Vol] 0.3 10*3/uL [facility] Monocytes/100 WBC (Bld) 12.5 % [facility] Neutrophils (Bld) [#/Vol] 1.6 10*3/uL [facility] Neutrophils/100 WBC (Bld) 60.2 % [facility] Platelet mean volume (Bld) [Entitic vol] 6.9 fL Low 7 - 12 fL [facility] Platelets (Bld) [#/Vol] 150 10*3/uL [facility] RBC (Bld) [#/Vol] 2.52 10*6/uL Low [facility] WBC corrected for nucl RBC Auto (Bld) [#/Vol] 2.7 Low [facility] COMPREHENSIVE METABOLIC PANE [place] 12-07-2023 Albumin [Mass/Vol] 3.1 g/dL Low 3.2-5.3 [facility] Comment on above: Performed By: #### B ADARSH, CBC #### [facility] ([id number]) [address] [place] [address] #### [id number] #### [facility] ([id number]) [address] [facility], [address] [place] [address] ALP [Catalytic activity/Vol] 56 U/L Normal 39-130 [facility] Comment on above: Performed By: #### Willis MP, CBC #### [facility] ([id number]) [address] [place] [address] 41017 #### [id number] #### [facility] ([id number]) [address] [facility], [address] [place] [address] ALT [Catalytic activity/Vol] 13 U/L Normal 0-31 [facility] Comment on above: Performed By: #### B MP, CBC #### [facility] ([id number]) [address] [place] [address] 60711 #### [id number] #### [facility] ([id number]) [address] [facility], [address] [place] [address] Anion gap [Moles/Vol] 8 mmol/L Normal 5-15 [facility] Comment on above: Performed By: #### B MP, CBC #### [facility] ([id number]) [address] [place] [address] 70550 #### [id number] #### [facility] ([id number]) [address], [address] [place] [address] AST [Catalytic activity/Vol] 22 U/L Normal 0-41 [facility] Comment on above: Performed By: #### B MP, CBC #### [facility] ([id number]) [address] [place] [address] 30011 #### 6793-4 #### [facility] ([id number]) [address], [address] [place] [address] Bilirubin [Mass/Vol] 0.5 mg/dL Normal 0.3-1.2 [facility] Comment on above: Performed By: #### B MP, CBC #### [facility] ([id number]) [address] [place] [address] 75415 #### 6793-4 #### [facility] ([id number]) [address], [address] [place] [address] Calcium [Mass/Vol] 8.8 mg/dL Normal 8.5-10.5 [facility] Comment on above: Performed By: #### B MP, CBC #### [facility] ([id number]) [address] [place] [address] 28512 #### [id number] #### [facility] ([id number]) [address], [address] [place] [address] Chloride [Moles/Vol] 102 mmol/L Normal 98-109 [facility] Comment on above: Performed By: #### B MP, CBC #### [facility] ([id number]) [address] [place] [address] 32590 #### 6793-4 #### [facility] ([id number]) [address] [facility], [address] [place] [address] CO2 [Moles/Vol] 28 mmol/L Normal 22-32 [facility] Comment on above: Performed By: #### B MP, CBC #### [facility] ([id number]) [address] [place] [address] 69540 #### [id number] #### [facility] ([id number]) [address] [facility], [address] [place] [address] Creatinine [Mass/Vol] 2.07 mg/dL High 0.40-1.00 [facility] Comment on above: Result Comment: METH OD TRACEABLE TO IDMS STANDARD Performed By: #### B ADARSH, CBC #### [facility] ([id number]) [address] [place] [address] 21112 #### 6793-4 #### [facility] ([id number]) [address] [facility], [address] [place] [address] GFR/1.73 sq M.predicted among non-blacks MDRD (S/P/Bld) [Vol rate/Area] 28 mL/min/{1.73_m2} Low >59 [facility] Comment on above: Result Comment: Reported eGFR is based on the CKD-EPI 2020 equation that does not use a race coefficient. Performed By: #### B MP, CBC #### [facility] ([id number]) [address] [place] [address] 68753 #### 6793-4 #### [facility] ([id number]) [address] [facility], [address] [place] [address] Glucose [Mass/Vol] 99 mg/dL Normal 65-99 [facility] Comment on above: Performed By: #### B MP, CBC #### [facility] ([id number]) [address] [place] [address] 65354 #### 6793-4 #### [facility] ([id number]) [address], [address] [place] [address] Potassium [Moles/Vol] 3.3 mmol/L Low 3.5-5.0 [facility] Comment on above: Performed By: #### Willis MP, CBC #### [facility] ([id number]) [address] [place] [address] 47547 #### 6793-4 #### [facility] ([id number]) [address], [address] [place] [address] Protein [Mass/Vol] 5.6 g/dL Low 6.0-8.0 [facility] Comment on above: Performed By: #### Willis ALTAMIRANO, CBC #### [facility] ([id number]) [address] [place] [address] 04593 #### [id number] #### [facility] ([id number]) [address], [address] [place] [address] Sodium [Moles/Vol] 138 mmol/L Normal 134-146 [facility] Comment on above: Performed By: #### Willis MP, CBC #### [facility] ([id number]) [address] [place] [address] 20365 #### [phone] #### [facility] ([id number]) [address], [address] [place] [address] Urea nitrogen [Mass/Vol] 27 mg/dL High 5-23 [facility] Comment on above: Performed By: #### Willis MP, CBC #### [facility] ([id number]) [address] [place] [address] 76249 #### [id number] #### [facility] ([id number]) [address], [address] [place] [address] Comprehensive metabolic pane rome 12-07-2023 Albumin [Mass/Vol] 3.1 g/dL Low 3.2 - 5.3 g/dL [facility] ALP [Catalytic activity/Vol] 56 U/L 39 - 130 U/L [facility] ALT No additional P-5'-P [Catalytic activity/Vol] 13 U/L 0 - 31 U/L [facility] Anion gap [Moles/Vol] 8 mmol/L 5 - 15 mmol/L [facility] AST [Catalytic activity/Vol] 22 U/L 0 - 41 U/L [facility] Bilirubin [Mass/Vol] 0.5 mg/dL 0.3 - 1 .2 mg/dL [facility] Calcium [Mass/Vol] 8.8 mg/dL 8.5 - 10. 5 mg/dL [facility] Chloride [Moles/Vol] 102 mmol/L 98 - 10 9 mmol/L [facility] CO2 [Moles/Vol] 28 mmol/L 22 - 32 mmol/L [facility] Creatinine [Mass/Vol] 2.07 mg/dL High 0.40 - 1.00 mg/dL [facility] Comment on above: METHOD TRACEABLE TO [facility] STANDARD eGFR (CKD-EPI)non-race dependent 28 Low - PINF [facility] Comment on above: Reported eGFR is based on the CKD-EPI 2020 equation that does not use a race coefficient. Glucose [Mass/Vol] 99 mg/dL 65 - 99 mg/dL [facility] Potassium [Moles/Vol] 3.3 mmol/L Low 3.5 - 5.0 mmol/L [facility] Protein [Mass/Vol] 5.6 g/dL Low 6.0 - 8.0 g/dL [facility] Sodium [Moles/Vol] 138 mmol/L 134 - 146 mmol/L [facility] Urea nitrogen [Mass/Vol] 27 mg/dL High 5 - 23 mg/dL [facility] MAGNESIUMon 12-07-2023 Magnesium [Mass/Vol] 2.0 mg/dL Normal 1.8-2.6 [facility] Comment on above: Performed By: #### B MP, CBC #### [facility] ([id number]) [address] [place], [place] [address] #### [phone] #### [facility] ([id number]) [address] [facility], [address] [address] Magnesiumon 12-07-2023 Magnesium [Mass/Vol] 2.0 mg/dL 1.8 - 2 .6 mg/dL [facility] No Panel Informationon 12-06 Interpretation and review of laboratory results Abnormal [facility] PHOSPHORUSon 12-07-2023 Phosphate [Mass/Vol] 5.4 mg/dL High 2.4-4.9 [facility] Comment on above: Performed By: #### B MP, CBC #### [facility] ([id number]) [address] [place] [address] 80395 #### 6793-4 #### [facility] ([id number]) [address] [place] [address] Phosphoruson 12-07-2023 Phosphate [Mass/Vol] 5.4 mg/dL High 2.4 - 4 .9 mg/dL [facility] CBC AND AUTO DIFFon 12-06-19 24 ABSOLUTE BASOPHIL 0.0 X10E9/L Normal 0.0-0.2 [facility] Comment on above: Performed By: #### B MP, CBC #### [facility] ([id number]) [address] [place] [address] 79474 #### 6793-4 #### [facility] ([id number]) [address] [place] [address], [address] [address] ABSOLUTE NEUTROPHIL 1.9 X10E9/L Normal 1.5-6.6 [facility] Comment on above: Performed By: #### B MP, CBC #### [facility] ([id number]) [address] [place] [address] 60176 #### 6793-4 #### [facility] ([id number]) [address] [place] [address] Basophils/100 WBC (Bld) 0.5 % Normal P [facility] Comment on above: Performed By: #### B MP, CBC #### [facility] ([id number]) [address] [place] [address] 83124 #### 6793-4 #### [facility] ([id number]) [address], [address] [place] [address] Eosinophils (Bld) [#/Vol] 0.2 10*3/uL Normal 0.0-0.4 [facility] Comment on above: Performed By: #### B MP, CBC #### [facility] ([id number]) [address] [place] [address] 84273 #### 6793-4 #### [facility] ([id number]) [address], [address] [place] [address] Eosinophils/100 WBC (Bld) 7.7 % Normal [facility] Comment on above: Performed By: #### B MP, CBC #### [facility] ([id number]) [address] [place] [address] 71103 #### 6793-4 #### [facility] ([id number]) [address], [address] [place] [address] Erythrocyte distribution width (RBC) [Ratio] 14.1 % Normal 11.5-15.0 [facility] Comment on above: Performed By: #### B MP, CBC #### [facility] ([id number]) [address] [place] [address] 26442 #### 6793-4 #### [facility] ([id number]) [address], [address] [place] [address] Hematocrit (Bld) [Volume fraction] 23.0 % Low 35-47 [facility] Comment on above: Performed By: #### B MP, CBC #### [facility] ([id number]) [address] [place] [address] 48549 #### 6793-4 #### [facility] ([id number]) [address] [address] [place] [address] Hemoglobin (Bld) [Mass/Vol] 7.8 g/dL Low 11.7-15.5 [facility] Comment on above: Performed By: #### B MP, CBC #### [facility] ([id number]) [address] [place], [place] [address] #### 6793-4 #### [facility] ([id number]) [address] [address] Lymphocytes (Bld) [#/Vol] 0.4 10*3/uL Low 1.0-3.5 [facility] Comment on above: Performed By: #### B MP, CBC #### [facility] ([id number]) [address] [place] [address] #### 6793-4 #### [facility] ([id number]) [address] [address] Lymphocytes/100 WBC (Bld) 13.8 % Normal [facility] Comment on above: Performed By: #### B MP, CBC #### [facility] ([id number]) [address] [place] [address] 00702 #### 6793-4 #### [facility] ([id number]) [address] [address] [place] [address] MCH (RBC) [Entitic mass] 30.3 pg Normal 27-34 [facility] Comment on above: Performed By: #### B MP, CBC #### [facility] ([id number]) [address] [place] [address] 81813 #### 6793-4 #### [facility] ([id number]) [address] [address] [place] [address] MCHC (RBC) [Mass/Vol] 34.0 g/dL Normal 32-36 [facility] Comment on above: Performed By: #### B MP, CBC #### [facility] ([id number]) [address] [place] [address] 98734 #### 6793-4 #### [facility] ([id number]) [address], [address] [place] [address] MCV (RBC) [Entitic vol] 89 fL Normal 80-100 P [facility] Comment on above: Performed By: #### B MP, CBC #### [facility] ([id number]) [address] [place] [address] 69460 #### 6793-4 #### [facility] ([id number]) [address], [address] [place] [address] Monocytes (Bld) [#/Vol] 0.4 10*3/uL Normal 0-0.9 [facility] Comment on above: Performed By: #### B MP, CBC #### [facility] ([id number]) [address] [place] [address] 38623 #### 6793-4 #### [facility] ([id number]) [address] [place] [address] Monocytes/100 WBC (Bld) 14.0 % Normal P [facility] Comment on above: Performed By: #### B MP, CBC #### [facility] ([id number]) [address] [place] [address] 17319 #### 6793-4 #### [facility] ([id number]) [address] [place] [address] Neutrophils/100 WBC (Bld) 64.0 % Normal [facility] Comment on above: Performed By: #### B MP, CBC #### [facility] ([id number]) [address] [place] [address] 92042 #### 6793-4 #### [facility] ([id number]) [address] [address] [place] [address] Platelet mean volume (Bld) [Entitic vol] 6.7 fL Low 7-12 [facility] Comment on above: Performed By: #### B MP, CBC #### [facility] ([id number]) [address] [place] [address] 25070 #### 6793-4 #### [facility] ([id number]) [address] [address] Platelets (Bld) [#/Vol] 172 10*3/uL Normal 150-450 [facility] Comment on above: Performed By: #### B MP, CBC #### [facility] ([id number]) [address] [place] [address] #### 6793-4 #### [facility] ([id number]) [address] [address] [place] [address] RBC COUNT 2.58 X10E12/L Low 3.80-5.20 [facility] Comment on above: Performed By: #### B MP, CBC #### [facility] ([id number]) [address] [place] [address] 66681 #### 6793-4 #### [facility] ([id number]) [address] [address] WBC (Bld) [#/Vol] 3.0 10*3/uL Low 4.0-11.0 [facility] Comment on above: Performed By: #### B MP, CBC #### [facility] ([id number]) [address] [place] [address] 14708 #### 6793-4 #### [facility] ([id number]) [address] [address] [place] [address] CBC auto differentialon 10-0 6-2024 Basophils (Bld) [#/Vol] 0.0 10*3/uL [facility] Basophils/100 WBC (Bld) 0.5 % P [facility] Eosinophils (Bld) [#/Vol] 0.2 10*3/uL [facility] Eosinophils/100 WBC (Bld) 7.7 % [facility] Erythrocyte distribution width (RBC) [Ratio] 14.1 % 11.5 - 15.0 % [facility] Hematocrit (Bld) [Volume fraction] 23.0 % Low 35 - 47 % [facility] Hemoglobin (Bld) [Mass/Vol] 7.8 g/dL Low 11.7 - 15.5 g/dL [facility] Interpretation and review of laboratory results Abnormal [facility] Lymphocytes (Bld) [#/Vol] 0.4 10*3/uL Low [facility] Lymphocytes/100 WBC (Bld) 13.8 % [facility] MCH (RBC) [Entitic mass] 30.3 pg 27 - 34 pg [facility] MCHC (RBC) [Mass/Vol] 34.0 g/dL 32 - 3 6 g/dL [facility] MCV (RBC) [Entitic vol] 89 fL 80 - 100 fL [facility] Monocytes (Bld) [#/Vol] 0.4 10*3/uL [facility] Monocytes/100 WBC (Bld) 14.0 % P [facility] Neutrophils (Bld) [#/Vol] 1.9 10*3/uL [facility] Neutrophils/100 WBC (Bld) 64.0 % [facility] Platelet mean volume (Bld) [Entitic vol] 6.7 fL Low 7 - 12 fL [facility] Platelets (Bld) [#/Vol] 172 10*3/uL [facility] RBC (Bld) [#/Vol] 2.58 10*6/uL Low [facility] WBC corrected for nucl RBC Auto (Bld) [#/Vol] 3.0 Low [facility] COMPREHENSIVE METABOLIC PANE [place] 12-06-2023 Albumin [Mass/Vol] 3.3 g/dL Normal 3.2-5.3 [facility] Comment on above: Performed By: #### Willis MP, CBC #### [facility] ([id number]) [address] [place] [address] #### [phone] #### [facility] ([id number]) [address] [place] [address] ALP [Catalytic activity/Vol] 55 U/L Normal 39-130 [facility] Comment on above: Performed By: #### Willis MP, CBC #### [facility] ([id number]) [address] [place] [address] #### [id number] #### [facility] ([id number]) [address], [address] [place] [address] ALT [Catalytic activity/Vol] 9 U/L Normal 0-31 [facility] Comment on above: Performed By: #### Willis MP, CBC #### [facility] ([id number]) [address] [place] [address] #### [id number] #### [facility] ([id number]) [address], [address] [place] [address] Anion gap [Moles/Vol] 9 mmol/L Normal 5-15 [facility] Comment on above: Performed By: #### Willis MP, CBC #### [facility] ([id number]) [address] [place] [address] #### [id number] #### [facility] ([id number]) [address], [address] [place] [address] AST [Catalytic activity/Vol] 16 U/L Normal 0-41 [facility] Comment on above: Performed By: #### Willis MP, CBC #### [facility] ([id number]) [address] [place] [address] #### [id number] #### [facility] ([id number]) [address], [address] [place] [address] Bilirubin [Mass/Vol] 0.5 mg/dL Normal 0.3-1.2 [facility] Comment on above: Performed By: #### B MP, CBC #### [facility] ([id number]) [address] [place] [address] #### [id number] #### [facility] ([id number]) [address], [address] [place] [address] Calcium [Mass/Vol] 9.0 mg/dL Normal 8.5-10.5 [facility] Comment on above: Performed By: #### Willis MP, CBC #### [facility] ([id number]) [address] [place] [address] 80806 #### [id number] #### [facility] ([id number]) [address], [address] [place] [address] Chloride [Moles/Vol] 102 mmol/L Normal 98-109 [facility] Comment on above: Performed By: #### Willis MP, CBC #### [facility] ([id number]) [address] [place] [address] 34174 #### [id number] #### [facility] ([id number]) [address], [address] [place] [address] CO2 [Moles/Vol] 26 mmol/L Normal 22-32 [facility] Comment on above: Performed By: #### Willis MP, CBC #### [facility] ([id number]) [address] [place] [address] 28876 #### [id number] #### [facility] ([id number]) [address], [address] [place] [address] Creatinine [Mass/Vol] 2.34 mg/dL High 0.40-1.00 [facility] Comment on above: Result Comment: METH OD TRACEABLE TO IDMS STANDARD Performed By: #### Willis ALTAMIRANO, CBC #### [facility] ([id number]) [address] [place] [address] 60882 #### [id number] #### [facility] ([id number]) [address], [address] [place] [address] GFR/1.73 sq M.predicted among non-blacks MDRD (S/P/Bld) [Vol rate/Area] 24 mL/min/{1.73_m2} Low >59 [facility] Comment on above: Result Comment: Reported eGFR is based on the CKD-EPI 2020 equation that does not use a race coefficient. Performed By: #### Willis ALTAMIRANO, CBC #### [facility] ([id number]) [address] [place] [address] 87826 #### [id number] #### [facility] ([id number]) [address], [address] [place] [address] Glucose [Mass/Vol] 100 mg/dL High 65-99 [facility] Comment on above: Performed By: #### Willis ALTAMIRANO, CBC #### [facility] ([id number]) [address] [place] [address] 31363 #### [id number] #### [facility] ([id number]) [address], [address] [place] [address] Potassium [Moles/Vol] 3.5 mmol/L Normal 3.5-5.0 [facility] Comment on above: Performed By: #### Willis ALTAMIRANO, CBC #### [facility] ([id number]) [address] [place] [address] 09332 #### [id number] #### [facility] ([id number]) [address], [address] [place] [address] Protein [Mass/Vol] 5.8 g/dL Low 6.0-8.0 [facility] Comment on above: Performed By: #### B MP, CBC #### [facility] ([id number]) [address] [place] [address] #### [id number] #### [facility] ([id number]) [address] [facility] [facility], [address] [place] [address] Sodium [Moles/Vol] 137 mmol/L Normal 134-146 [facility] Comment on above: Performed By: #### B MP, CBC #### [facility] ([id number]) [address] [place] [address] 37313 #### [id number] #### [facility] ([id number]) [address] [facility] [facility], [address] [place] [address] Urea nitrogen [Mass/Vol] 21 mg/dL Normal 5-23 [facility] Comment on above: Performed By: #### B MP, CBC #### [facility] ([id number]) [address] [place] [address] 52542 #### [id number] #### [facility] ([id number]) [address] [facility] [facility], [address] [place] [address] Comprehensive metabolic pane rome 12-06-2023 Albumin [Mass/Vol] 3.3 g/dL 3.2 - 5.3 g/dL [facility] ALP [Catalytic activity/Vol] 55 U/L 39 - 130 U/L [facility] ALT No additional P-5'-P [Catalytic activity/Vol] 9 U/L 0 - 31 U/L [facility] Anion gap [Moles/Vol] 9 mmol/L 5 - 15 mmol/L [facility] AST [Catalytic activity/Vol] 16 U/L 0 - 41 U/L [facility] Bilirubin [Mass/Vol] 0.5 mg/dL 0.3 - 1 .2 mg/dL [facility] Calcium [Mass/Vol] 9.0 mg/dL 8.5 - 10. 5 mg/dL [facility] Chloride [Moles/Vol] 102 mmol/L 98 - 10 9 mmol/L [facility] CO2 [Moles/Vol] 26 mmol/L 22 - 32 mmol/L [facility] Creatinine [Mass/Vol] 2.34 mg/dL High 0.40 - 1.00 mg/dL [facility] Comment on above: METHOD TRACEABLE TO [facility] STANDARD eGFR (CKD-EPI)non-race dependent 24 Low - PINF [facility] Comment on above: Reported eGFR is based on the CKD-EPI 2020 equation that does not use a race coefficient. Glucose [Mass/Vol] 100 mg/dL High 65 - 99 mg/dL [facility] Potassium [Moles/Vol] 3.5 mmol/L 3.5 - 5.0 mmol/L [facility] Protein [Mass/Vol] 5.8 g/dL Low 6.0 - 8.0 g/dL [facility] Sodium [Moles/Vol] 137 mmol/L 134 - 146 mmol/L [facility] Urea nitrogen [Mass/Vol] 21 mg/dL 5 - 23 mg/dL [facility] MAGNESIUMon 12-06-2023 Magnesium [Mass/Vol] 2.3 mg/dL Normal 1.8-2.6 [facility] Comment on above: Performed By: #### B MP, CBC #### [facility] ([id number]) [address] [place] [address] #### [id number] #### [facility] ([id number]) [address] [facility] [facility], [address] [place] [address] Magnesium [Mass/Vol] 1.5 mg/dL Low 1.8-2.6 [facility] Comment on above: Performed By: #### B MP, CBC #### [facility] ([id number]) [address] [place] [address] #### [phone] #### [facility] ([id number]) [address], [address] [place] [address] Magnesiumon 12-06-2023 Magnesium [Mass/Vol] 2.3 mg/dL 1.8 - 2 .6 mg/dL [facility] Magnesium [Mass/Vol] 1.5 mg/dL Low 1.8 - 2 .6 mg/dL [facility] Magnesium [Mass/Vol]on 12-05 [facility] No Panel Informationon 12-05 Interpretation and review of laboratory results Abnormal [facility] PHOSPHORUSon 12-06-2023 Phosphate [Mass/Vol] 5.0 mg/dL High 2.4-4.9 [facility] Comment on above: Performed By: #### B MP, CBC #### [facility] ([id number]) [address] [place] [address] 86817 #### [id number] #### [facility] ([id number]) [address] [facility] [facility], [address] [place] [address] Phosphoruson 12-06-2023 Phosphate [Mass/Vol] 5.0 mg/dL High 2.4 - 4 .9 mg/dL [facility] URINALYSISon 12-06-2023 Bilirubin Ql (U) Negative Normal NEG [facility] Comment on above: Performed By: #### B MP, CBC #### [facility] ([id number]) [address] [place] [address] 04329 #### [id number] #### [facility] ([id number]) [address] [facility], [address] [place] [address] BLOOD/HGB Negative Normal NEG [facility] Comment on above: Performed By: #### B MP, CBC #### [facility] ([id number]) [address] [place] [address] 42306 #### [id number] #### [facility] ([id number]) [address] [facility], [address] [place] [address] Color (U) YELLOW Normal YELLOW [facility] Comment on above: Performed By: #### B MP, CBC #### [facility] ([id number]) [address] [place] [address] 79822 #### [phone] #### [facility] ([id number]) [address], [address] [place] [address] Glucose Ql (U) Negative Normal NEG [facility] Comment on above: Performed By: #### B MP, CBC #### [facility] ([id number]) [address] [place] [address] 03609 #### [phone] #### [facility] ([id number]) [address], [address] [place] [address] Ketones Ql (U) Negative Normal NEG [facility] Comment on above: Performed By: #### Willis MP, CBC #### [facility] ([id number]) [address] [place] [address] 92329 #### [id number] #### [facility] ([id number]) [address], [address] [place] [address] Leukocyte esterase Test strip Ql (U) Trace Abnormal NEG [facility] Comment on above: Performed By: #### Willis MP, CBC #### [facility] ([id number]) [address] [place] [address] 83824 #### [id number] #### [facility] ([id number]) [address], [address] [place] [address] Nitrite Ql (U) Negative Normal NEG [facility] Comment on above: Performed By: #### B MP, CBC #### [facility] ([id number]) [address] [place] [address] 00249 #### [phone] #### [facility] ([id number]) [address], [address] [place] [address] pH (U) 6.5 [pH] Normal 5.0-8.5 [facility] Comment on above: Performed By: #### B MP, CBC #### [facility] ([id number]) [address] [place] [address] 81181 #### [phone] #### [facility] ([id number]) [address], [address] [place] [address] Protein Ql (U) Negative Normal NEG [facility] Comment on above: Performed By: #### Willis ALTAMIRANO, CBC #### [facility] ([id number]) [address] [place] [address] 58388 #### [phone] #### [facility] ([id number]) [address] [place] [address] R.B.CELLS 1 /hpf Normal 0-5 [facility] Comment on above: Performed By: #### Willis ALTAMIRANO, CBC #### [facility] ([id number]) [address] [place] [address] 14058 #### [phone] #### [facility] ([id number]) [address] [place] [address] Specific gravity (U) [Rel density] 1.010 Normal 1.003-1.03 5 [facility] Comment on above: Performed By: #### Willis ALTAMIRANO, CBC #### [facility] ([id number]) [address] [place] [address] 48150 #### [phone] #### [facility] ([id number]) [address], [address] [place] [address] SQUAMOUS EPITHELIUM 1 /hpf Normal 0-5 [facility] Comment on above: Performed By: #### Willis ALTAMIRANO, CBC #### [facility] ([id number]) [address] [place] [address] 47462 #### [phone] #### [facility] ([id number]) [address], [address] [place] [address] TRANSITIONAL EPITH 1 /hpf High 0 [facility] Comment on above: Performed By: #### B MP, CBC #### [facility] ([id number]) [address] [place] [address] 43100 #### [phone] #### [facility] ([id number]) [address] [facility], [address] [address] TURBIDITY CLEAR Normal CLEAR [facility] Comment on above: Performed By: #### Willis MP, CBC #### [facility] ([id number]) [address] [place], [place] [address] #### [phone] #### [facility] ([id number]) [address] [place] [address] Urobilinogen Qn (U) 0.2 {[place]'U}/dL Normal <1.1 [facility] Comment on above: Performed By: #### Willis ALTAMIRANO, CBC #### [facility] ([id number]) [address] [place], [place] [address] #### [phone] #### [facility] ([id number]) [address] [place] [address] W.B.CELLS 3 /hpf Normal 0-5 [facility] Comment on above: Performed By: #### Willis ALTAMIRANO, CBC #### [facility] ([id number]) [address] [place] [address] 94038 #### [phone] #### [facility] ([id number]) [address] [place] [address], [address] [address] Urinalysison 12-06-2023 Bilirubin Ql (U) Negative Negative^N egative [facility] Color (U) YELLOW YELLOW^YEL LOW [facility] Epithelial cells Auto (Urine sed) [#/Area] 1 [facility] Epithelial cells.non-squamous LM.LPF (Urine sed) [#/Area] 1 High 0 /hpf [facility] Glucose (U) [Mass/Vol] Negative Negat hallie^N egative mg/dL [facility] Hemoglobin Auto test strip Ql (U) Negative Negative^N egative [facility] Interpretation and review of laboratory results Abnormal [facility] Ketones (U) [Mass/Vol] Negative Negat hallie^N egative mg/dL [facility] Leukocyte esterase Auto test strip Ql (U) Trace Abnormal Negative^N egative [facility] Nitrite Auto test strip Ql (U) Negative Negative^N egative [facility] pH (U) 6.5 [pH] 5.0 - 8.5 [facility] Protein (U) [Mass/Vol] Negative Negat hallie^N egative mg/dL [facility] RBC Auto (Urine sed) [#/Area] 1 [facility] Specific gravity Refractometry automated (U) [Rel density] 1.010 1.003 - 1.035 [facility] Turbidity Ql (U) CLEAR CLEAR^TWIN R [facility] Urobilinogen Qn (U) 0.2 NINF [facility] WBC Auto (Urine sed) [#/Area] 3 [facility] BLOOD CULTUREon 12-05-2023 Bacteria identified Aer cx Nom (Bld) CULTURE RESULTS NO GROWTH 5 DAYS Normal [facility] Bacteria identified Aer cx Nom (Bld) CULTURE RESULTS NO GROWTH 5 DAYS Normal [facility] CBC AND AUTO DIFFon 12-05-19 24 ABSOLUTE BASOPHIL 0.0 X10E9/L Normal 0.0-0.2 [facility] Comment on above: Performed By: #### B MP, CBC #### [facility] ([id number]) [address] [place] [address] #### [phone] #### [facility] ([id number]) [address] [place] [address], [address] [place] [address] ABSOLUTE NEUTROPHIL 2.6 X10E9/L Normal 1.5-6.6 [facility] Comment on above: Performed By: #### B MP, CBC #### [facility] ([id number]) [address] [place] [address] #### [phone] #### [facility] ([id number]) [address], [address] [place] [address] Basophils/100 WBC (Bld) 0.7 % Normal P [facility] Comment on above: Performed By: #### B MP, CBC #### [facility] ([id number]) [address] [place] [address] 13267 #### [phone] #### [facility] ([id number]) [address] [place] [address] Eosinophils (Bld) [#/Vol] 0.3 10*3/uL Normal 0.0-0.4 [facility] Comment on above: Performed By: #### B MP, CBC #### [facility] ([id number]) [address] [place] [address] 17691 #### [phone] #### [facility] ([id number]) [address] [address] [place] [address] Eosinophils/100 WBC (Bld) 8.8 % Normal [facility] Comment on above: Performed By: #### B MP, CBC #### [facility] ([id number]) [address] [place] [address] 13524 #### [phone] #### [facility] ([id number]) [address] [address] [place] [address] Erythrocyte distribution width (RBC) [Ratio] 13.8 % Normal 11.5-15.0 [facility] Comment on above: Performed By: #### B MP, CBC #### [facility] ([id number]) [address] [place] [address] 52100 #### [phone] #### [facility] ([id number]) [address] [address] [place] [address] Hematocrit (Bld) [Volume fraction] 22.2 % Low 35-47 [facility] Comment on above: Performed By: #### B MP, CBC #### [facility] ([id number]) [address] [place] [address] 50700 #### [phone] #### [facility] ([id number]) [address] [place] [address] Hemoglobin (Bld) [Mass/Vol] 7.6 g/dL Low 11.7-15.5 [facility] Comment on above: Performed By: #### B MP, CBC #### [facility] ([id number]) [address] [place] [address] 22079 #### [phone] #### [facility] ([id number]) [address] [place] [address] Lymphocytes (Bld) [#/Vol] 0.5 10*3/uL Low 1.0-3.5 [facility] Comment on above: Performed By: #### B MP, CBC #### [facility] ([id number]) [address] [place] [address] 97875 #### [phone] #### [facility] ([id number]) [address] [place] [address] Lymphocytes/100 WBC (Bld) 11.8 % Normal [facility] Comment on above: Performed By: #### B MP, CBC #### [facility] ([id number]) [address] [place] [address] 24695 #### [phone] #### [facility] ([id number]) [address], [address] [place] [address] MCH (RBC) [Entitic mass] 30.5 pg Normal 27-34 [facility] Comment on above: Performed By: #### B MP, CBC #### [facility] ([id number]) [address] [place] [address] 01518 #### [phone] #### [facility] ([id number]) [address] [place] [address] MCHC (RBC) [Mass/Vol] 34.4 g/dL Normal 32-36 [facility] Comment on above: Performed By: #### B MP, CBC #### [facility] ([id number]) [address] [place] [address] 67841 #### [phone] #### [facility] ([id number]) [address] [place] [address] MCV (RBC) [Entitic vol] 89 fL Normal 80-100 P [facility] Comment on above: Performed By: #### B MP, CBC #### [facility] ([id number]) [address] [place] [address] 89366 #### [phone] #### [facility] ([id number]) [address], [address] [place] [address] Monocytes (Bld) [#/Vol] 0.5 10*3/uL Normal 0-0.9 [facility] Comment on above: Performed By: #### Willis MP, CBC #### [facility] ([id number]) [address] [place] [address] 07891 #### 6793-4 #### [facility] ([id number]) [address] [place] [address] Monocytes/100 WBC (Bld) 11.8 % Normal P [facility] Comment on above: Performed By: #### B MP, CBC #### [facility] ([id number]) [address] [place] [address] 20727 #### 6793-4 #### [facility] ([id number]) [address] [place] [address] Neutrophils/100 WBC (Bld) 66.9 % Normal [facility] Comment on above: Performed By: #### B MP, CBC #### [facility] ([id number]) [address] [place] [address] 51039 #### [phone] #### [facility] ([id number]) [address] [place] [address] Platelet mean volume (Bld) [Entitic vol] 6.4 fL Low 7-12 [facility] Comment on above: Performed By: #### B MP, CBC #### [facility] ([id number]) [address] [place] [address] 46614 #### 6793-4 #### [facility] ([id number]) [address] [place] [address] Platelets (Bld) [#/Vol] 195 10*3/uL Normal 150-450 [facility] Comment on above: Performed By: #### B MP, CBC #### [facility] ([id number]) [address] [place] [address] 04980 #### [phone] #### [facility] ([id number]) [address] [place] [address] RBC COUNT 2.50 X10E12/L Low 3.80-5.20 [facility] Comment on above: Performed By: #### B MP, CBC #### [facility] ([id number]) [address] [place] [address] 22470 #### 6793-4 #### [facility] ([id number]) [address] [place] [address] WBC (Bld) [#/Vol] 3.9 10*3/uL Low 4.0-11.0 [facility] Comment on above: Performed By: #### B MP, CBC #### [facility] ([id number]) [address] [place] [address] 43720 #### [phone] #### [facility] ([id number]) [address] [facility] [place] [address] CBC auto differentialon Basophils (Bld) [#/Vol] 0.0 10*3/uL [facility] Basophils/100 WBC (Bld) 0.7 % [facility] Eosinophils (Bld) [#/Vol] 0.3 10*3/uL [facility] Eosinophils/100 WBC (Bld) 8.8 % [facility] Erythrocyte distribution width (RBC) [Ratio] 13.8 % 11.5 - 15.0 % [facility] Hematocrit (Bld) [Volume fraction] 22.2 % Low 35 - 47 % [facility] Hemoglobin (Bld) [Mass/Vol] 7.6 g/dL Low 11.7 - 15.5 g/dL [facility] Interpretation and review of laboratory results Abnormal [facility] Lymphocytes (Bld) [#/Vol] 0.5 10*3/uL Low [facility] Lymphocytes/100 WBC (Bld) 11.8 % [facility] MCH (RBC) [Entitic mass] 30.5 pg 27 - 34 pg [facility] MCHC (RBC) [Mass/Vol] 34.4 g/dL 32 - 3 6 g/dL [facility] MCV (RBC) [Entitic vol] 89 fL 80 - 100 fL [facility] Monocytes (Bld) [#/Vol] 0.5 10*3/uL [facility] Monocytes/100 WBC (Bld) 11.8 % [facility] Neutrophils (Bld) [#/Vol] 2.6 10*3/uL [facility] Neutrophils/100 WBC (Bld) 66.9 % [facility] Platelet mean volume (Bld) [Entitic vol] 6.4 fL Low 7 - 12 fL [facility] Platelets (Bld) [#/Vol] 195 10*3/uL [facility] RBC (Bld) [#/Vol] 2.50 10*6/uL Low [facility] WBC corrected for nucl RBC Auto (Bld) [#/Vol] 3.9 Low [facility] COMPREHENSIVE METABOLIC PANE [place] 12-05-2023 Albumin [Mass/Vol] 3.2 g/dL Normal 3.2-5.3 [facility] Comment on above: Performed By: #### B MP, CBC #### [facility] ([id number]) [address] [place] [id number] #### [phone] #### [facility] ([id number]) [address], [address] [place] [address] ALP [Catalytic activity/Vol] 58 U/L Normal 39-130 [facility] Comment on above: Performed By: #### Willis MP, CBC #### [facility] ([id number]) [address] [place] [id number] #### [id number] #### [facility] ([id number]) [address], [address] [place] [address] ALT [Catalytic activity/Vol] 9 U/L Normal 0-31 [facility] Comment on above: Performed By: #### Willis MP, CBC #### [facility] ([id number]) [address] [place] [id number] #### [id number] #### [facility] ([id number]) [address], [address] [place] [address] Anion gap [Moles/Vol] 8 mmol/L Normal 5-15 [facility] Comment on above: Performed By: #### Willis MP, CBC #### [facility] ([id number]) [address] [place] [address] 86017 #### [id number] #### [facility] ([id number]) [address], [address] [place] [address] AST [Catalytic activity/Vol] 15 U/L Normal 0-41 [facility] Comment on above: Performed By: #### Willis MP, CBC #### [facility] ([id number]) [address] [place] [address] 42780 #### [id number] #### [facility] ([id number]) [address], [address] [place] [address] Bilirubin [Mass/Vol] 0.4 mg/dL Normal 0.3-1.2 [facility] Comment on above: Performed By: #### Willis MP, CBC #### [facility] ([id number]) [address] [place] [address] 34443 #### [id number] #### [facility] ([id number]) [address], [address] [place] [address] Calcium [Mass/Vol] 9.4 mg/dL Normal 8.5-10.5 [facility] Comment on above: Performed By: #### Willis ALTAMIRANO, CBC #### [facility] ([id number]) [address] [place] [address] 15040 #### [id number] #### [facility] ([id number]) [address] [place] [address] Chloride [Moles/Vol] 105 mmol/L Normal 98-109 [facility] Comment on above: Performed By: #### Willis MP, CBC #### [facility] ([id number]) [address] [place] [address] 07188 #### [id number] #### [facility] ([id number]) [address], [address] [place] [address] CO2 [Moles/Vol] 26 mmol/L Normal 22-32 [facility] Comment on above: Performed By: #### Willis MP, CBC #### [facility] ([id number]) [address] [place] [address] 39484 #### [id number] #### [facility] ([id number]) [address] [address] Creatinine [Mass/Vol] 2.61 mg/dL High 0.40-1.00 [facility] Comment on above: Result Comment: METH OD TRACEABLE TO IDMS STANDARD Performed By: #### Willis ALTAMIRANO, CBC #### [facility] ([id number]) [address] [place] [address] 00377 #### [id number] #### [facility] ([id number]) [address] [address] GFR/1.73 sq M.predicted among non-blacks MDRD (S/P/Bld) [Vol rate/Area] 21 mL/min/{1.73_m2} Low >59 [facility] Comment on above: Result Comment: Reported eGFR is based on the CKD-EPI 2020 equation that does not use a race coefficient. Performed By: #### B ADARSH, CBC #### [facility] ([id number]) [address] [place] [address] 41691 #### [id number] #### [facility] ([id number]) [address] [address] Glucose [Mass/Vol] 95 mg/dL Normal 65-99 [facility] Comment on above: Performed By: #### Willis ALTAMIRANO, CBC #### [facility] ([id number]) [address] [place] [address] 44482 #### [id number] #### [facility] ([id number]) [address] [address] Potassium [Moles/Vol] 3.6 mmol/L Normal 3.5-5.0 [facility] Comment on above: Performed By: #### Willis ALTAMIRANO, CBC #### [facility] ([id number]) [address] [place] [address] 83709 #### [id number] #### [facility] ([id number]) [address] [address] Protein [Mass/Vol] 5.6 g/dL Low 6.0-8.0 [facility] Comment on above: Performed By: #### B MP, CBC #### [facility] ([id number]) [address] [place] [address] 43844 #### [phone] #### [facility] ([id number]) [address], [address] [place] [address] Sodium [Moles/Vol] 139 mmol/L Normal 134-146 [facility] Comment on above: Performed By: #### B MP, CBC #### [facility] ([id number]) [address] [place] [address] 71014 #### [id number] #### [facility] ([id number]) [address] [place] [address] Urea nitrogen [Mass/Vol] 19 mg/dL Normal 5-23 [facility] Comment on above: Performed By: #### B MP, CBC #### [facility] ([id number]) [address] [place] [address] 90235 #### [phone] #### [facility] ([id number]) [address], [address] [address] Cobalamin (Vitamin B12) [Mas s/Vol]on 12-05-2023 [facility] Comprehensive metabolic pane rome 12-05-2023 Albumin [Mass/Vol] 3.2 g/dL 3.2 - 5.3 g/dL [facility] ALP [Catalytic activity/Vol] 58 U/L 39 - 130 U/L [facility] ALT No additional P-5'-P [Catalytic activity/Vol] 9 U/L 0 - 31 U/L [facility] Anion gap [Moles/Vol] 8 mmol/L 5 - 15 mmol/L [facility] AST [Catalytic activity/Vol] 15 U/L 0 - 41 U/L [facility] Bilirubin [Mass/Vol] 0.4 mg/dL 0.3 - 1 .2 mg/dL [facility] Calcium [Mass/Vol] 9.4 mg/dL 8.5 - 10. 5 mg/dL [facility] Chloride [Moles/Vol] 105 mmol/L 98 - 10 9 mmol/L [facility] CO2 [Moles/Vol] 26 mmol/L 22 - 32 mmol/L [facility] Creatinine [Mass/Vol] 2.61 mg/dL High 0.40 - 1.00 mg/dL [facility] Comment on above: METHOD TRACEABLE TO [facility] STANDARD eGFR (CKD-EPI)non-race dependent 21 Low - PINF [facility] Comment on above: Reported eGFR is based on the CKD-EPI 2020 equation that does not use a race coefficient. Glucose [Mass/Vol] 95 mg/dL 65 - 99 mg/dL [facility] Potassium [Moles/Vol] 3.6 mmol/L 3.5 - 5.0 mmol/L [facility] Protein [Mass/Vol] 5.6 g/dL Low 6.0 - 8.0 g/dL [facility] Sodium [Moles/Vol] 139 mmol/L 134 - 146 mmol/L [facility] Urea nitrogen [Mass/Vol] 19 mg/dL 5 - 23 mg/dL [facility] Folateon 12-05-2023 Folate [Mass/Vol] 9.7 ng/mL 5.8 - PINF ng/mL [facility] Comment on above: NEW REFERENCE RANGE Folate [Mass/Vol]on 12-05-19 [facility] Iron and TIBCon 12-05-2023 Interpretation and review of laboratory results Abnormal [facility] Iron [Mass/Vol] ug/dL Low 50 - 170 ug/dL [facility] Iron binding capacity [Mass/Vol] 272 ug/dL 250 - 425 ug/dL [facility] Iron saturation [Mass fraction] Low [facility] MAGNESIUMon 12-05-2023 Magnesium [Mass/Vol] 1.8 mg/dL Normal 1.8-2.6 [facility] Comment on above: Performed By: #### B MP, CBC #### [facility] ([id number]) [address] [place] [address]4022 #### [phone] #### [facility] ([id number]) [address] [facility] [facility] [place] [address] Magnesium [Mass/Vol] 1.5 mg/dL Low 1.8-2.6 [facility] Comment on above: Performed By: #### B ADARSH, CBC #### [facility] ([id number]) [address] [place] [address] 66948 #### [phone] #### [facility] ([id number]) [address] [facility], [address] [place] [address] Magnesiumon 12-05-2023 Magnesium [Mass/Vol] 1.8 mg/dL 1.8 - 2 .6 mg/dL [facility] Magnesium [Mass/Vol] 1.5 mg/dL Low 1.8 - 2 .6 mg/dL [facility] No Panel Informationon 12-04 [facility] Interpretation and review of laboratory results Abnormal [facility] PHOSPHORUSon 12-05-2023 Phosphate [Mass/Vol] 4.1 mg/dL Normal 2.4-4.9 [facility] Comment on above: Performed By: #### B MP, CBC #### [facility] ([id number]) [address] [place] [address]30 #### [phone] #### [facility] ([id number]) [address] [facility], [address] [place] [address] POTASSIUMon 12-05-2023 Potassium [Moles/Vol] 3.6 mmol/L Normal 3.5-5.0 [facility] Comment on above: Performed By: #### B MP, CBC #### [facility] ([id number]) [address] [place] [address] 84283 #### [phone] #### [facility] ([id number]) [address] [facility], [address] [place] [address] Phosphoruson 12-05-2023 Phosphate [Mass/Vol] 4.1 mg/dL 2.4 - 4 .9 mg/dL [facility] Potassiumon 12-05-2023 Potassium [Moles/Vol] 3.6 mmol/L 3.5 - 5.0 mmol/L [facility] RESP PATHOGENS/[id number] 12-05-2023 Respiratory pathogens DNA and RNA panel [...] 2 Not detected (qualifier value) NOTE The [employer] Respiratory Panel 2.1 (RP2.1) is a multiplexed [...] patient with possible respiratory tract infection. Normal [facility] Comment on above: Performed By: #### B MP, CBC #### [facility] ([id number]) [address] [place] [address] #### [id number] #### [facility] ([id number]) [address] [place] [address] [address] [place] [address] Respiratory pathogens DNA an d RNA panel KYLE+non-probe (Nph)on 12-05-2023 Adenovirus DNA KYLE+non-probe Ql (Nph) Not detected Not Detected^N ot Detected [facility] B. parapertussis [id number] DNA KYLE+non-probe Ql (Nph) Not detected Not Detected^N ot Detected [facility] B. pertussis toxin promoter region KYLE+non-probe Ql (Nph) Not detected Not Detected^N ot Detected [facility] C. pneumoniae DNA KYLE+non-probe Ql (Nph) Not detected Not Detected^N ot Detected [facility] FLUAV RNA KYLE+non-probe Ql (Nph) Not detected Not Detected^N ot Detected [facility] FLUBV RNA KYLE+non-probe Ql (Nph) Not detected Not Detected^N ot Detected [facility] HCoV 229E RNA KYLE+non-probe Ql (Nph) Not detected Not Detected^N ot Detected [facility] HCoV HKU1 RNA KYLE+non-probe Ql (Nph) Not detected Not Detected^N ot Detected [facility] HCoV NL63 RNA KYLE+non-probe Ql (Nph) Not detected Not Detected^N ot Detected [facility] HCoV OC43 RNA KYLE+non-probe Ql (Nph) Not detected Not Detected^N ot Detected [facility] hMPV RNA KYLE+non-probe Ql (Nph) Not detected Not Detected^N ot Detected [facility] M. pneumoniae DNA KYLE+non-probe Ql (Nph) Not detected Not Detected^N ot Detected [facility] Parainfluenza virus 1 RNA KYLE+non-probe Ql (Nph) Not detected Not Detected^N ot Detected [facility] Parainfluenza virus 2 RNA KYLE+non-probe Ql (Nph) Not detected Not Detected^N ot Detected [facility] Parainfluenza virus 3 RNA KYLE+non-probe Ql (Nph) Not detected Not Detected^N ot Detected [facility] Parainfluenza virus 4 RNA KYLE+non-probe Ql (Nph) Not detected Not Detected^N ot Detected [facility] Rhinovirus+Enterovirus RNA KYLE+non-probe Ql (Nph) Not detected Not Detected^N ot Detected [facility] RSV RNA KYLE+non-probe Ql (Nph) Not detected Not Detected^N ot Detected [facility] SARS-CoV-2 (COVID-19) RNA KYLE+probe Ql (Resp) Not detected Not Detected^N ot Detected [facility] Comment on above: NOTE The [employer] Respiratory Panel 2.1 (RP2.1) is a multiplexed [...] Specimen source Nom (Body fld) NASO PHARYNX [facility] Vitamin B12on 12-05-2023 Cobalamin (Vitamin B12) [Mass/Vol] 185 pg/mL 180 - 914 pg/mL [facility] XR CHEST 1 VWon 12-05-2023 XR CHEST 1 VW XR CHEST 1 VW Clinical history: Fever Views: 1 Comparison: None Findings/Impression: 1. Heart size stable. No focal infiltrate or volume loss. No pneumothorax. 2. Scoliosis. 3. No pneumothorax nor large effusion. 4. In summary findings most consistent with mild vascular congestion.. Finalized by Brice Sanders MD on 12/05/2023 12:16 PM Normal [facility] XR Chest Single viewon 12-04 Clinical history: Fever Views: 1 Comparison: None Findings/Impression: 1. Heart size stable. No focal infiltrate or volume loss. No pneumothorax. 2. Scoliosis. 3. No pneumothorax nor large effusion. 4. In summary findings most consistent with mild vascular congestion.. Finalized by Brice Sanders MD on 12/05/2023 12:16 PM [facility] Brice Sanders MD - 12/05/2023 Clinical history: Fever Views: 1 Comparison: None Findings/Impression: 1. Heart size stable. No focal infiltrate or volume loss. No pneumothorax. 2. Scoliosis. 3. No pneumothorax nor large effusion. 4. In summary findings most consistent with mild vascular congestion.. Finalized by Brice Sanders MD on 12/05/2023 12:16 PM [facility] Radiology Study observation (narrative) [facility] XR Chest Single viewOrdered By: Brice Sanders on 12-05-2023 [facility] Work Phone: Bacteria identified Cx Nom ( U)on 12-04-2023 Service comment (Unsp spec) [Interp] NO GROWTH AT <1000 CFU/mL [facility] CBC AND AUTO DIFFon 12-04-19 24 ABSOLUTE BASOPHIL 0.0 X10E9/L Normal 0.0-0.2 [facility] Comment on above: Performed By: #### C LUCIA CMP, , 2776-03 ####[facility] ([id number])[address] [place] [address] ABSOLUTE NEUTROPHIL 3.1 X10E9/L Normal 1.5-6.6 [facility] Comment on above: Performed By: #### C BCA, CMP, , 2776-03 ####[facility] ([id number])[address] [place] [address] Basophils/100 WBC (Bld) 0.3 % Normal [facility] Comment on above: Performed By: #### C BCA, CMP, , 2776-03 ####[facility] ([id number])[address] [place] [address] Eosinophils (Bld) [#/Vol] 0.4 10*3/uL Normal 0.0-0.4 [facility] Comment on above: Performed By: #### C BCA, CMP, 2776-03 ####[facility] ([id number])[address] [place] [address] Eosinophils/100 WBC (Bld) 8.5 % Normal [facility] Comment on above: Performed By: #### C BCA CMP, , 2776-03 ####[facility] ([id number])5200 [facility] [place] [address] Erythrocyte distribution width (RBC) [Ratio] 14.0 % Normal 11.5-15.0 [facility] Comment on above: Performed By: #### C BCA, CMP, , 2776-03 ####[facility] ([id number])5200 [facility] [place] [address] Hematocrit (Bld) [Volume fraction] 21.2 % Low 35-47 [facility] Comment on above: Performed By: #### C BCA, CMP, , 2776-03 ####[facility] ([id number])5200 [facility] [place] [address] Hemoglobin (Bld) [Mass/Vol] 7.3 g/dL Low 11.7-15.5 [facility] Comment on above: Performed By: #### C BCA, CMP, , 2776-03 ####[facility] ([id number])5200 [facility] [place] [address] Lymphocytes (Bld) [#/Vol] 0.4 10*3/uL Low 1.0-3.5 [facility] Comment on above: Performed By: #### C BCA, CMP, , 2776-03 ####[facility] ([id number])5200 [facility] [place] [place] [address] Lymphocytes/100 WBC (Bld) 10.0 % Normal [facility] Comment on above: Performed By: #### C BCA, CMP, , 2776-03 ####[facility] ([id number])5200 [facility] [place] [address] MCH (RBC) [Entitic mass] 30.7 pg Normal 27-34 [facility] Comment on above: Performed By: #### C BCA, CMP, , 2776-03 ####[facility] ([id number])[address] [place] [address] MCHC (RBC) [Mass/Vol] 34.3 g/dL Normal 32-36 [facility] Comment on above: Performed By: #### C LUCIA, CMP, , 2776-03 ####[facility] ([id number])[address] [place] [address] MCV (RBC) [Entitic vol] 90 fL Normal 80-100 [facility] Comment on above: Performed By: #### C LUCIA, CMP, , 2776-03 ####[facility] ([id number])[address] [place] [address] Monocytes (Bld) [#/Vol] 0.5 10*3/uL Normal 0-0.9 [facility] Comment on above: Performed By: #### Jamal MYRES, CMP, , 2776-03 ####[facility] ([id number])[address] [place] [address] Monocytes/100 WBC (Bld) 10.6 % Normal [facility] Comment on above: Performed By: #### Jamal MYERS, CMP, , 2776-03 ####[facility] ([id number])[address] [place] [address] Neutrophils/100 WBC (Bld) 70.6 % Normal [facility] Comment on above: Performed By: #### C LUCIA, CMP, , 2776-03 ####[facility] ([id number])[address] [place] [address] Platelet mean volume (Bld) [Entitic vol] 6.4 fL Low 7-12 [facility] Comment on above: Performed By: #### C LUCIA, CMP, , 2776-03 ####[facility] ([id number])[address] [place] [address] Platelets (Bld) [#/Vol] 201 10*3/uL Normal 150-450 [facility] Comment on above: Performed By: #### C BCA, CMP, , 2776-03 ####[facility] ([id number])5200 [place] [address] RBC COUNT 2.37 X10E12/L Low 3.80-5.20 [facility] Comment on above: Performed By: #### C BCA, CMP, , 2776-03 ####[facility] ([id number])5200 [place] [address] WBC (Bld) [#/Vol] 4.3 10*3/uL Normal 4.0-11.0 [facility] Comment on above: Performed By: #### C LUCIA, CMP, , 2776-03 ####[facility] ([id number])[address] [place] [address] CBC auto differentialon 10-0 Basophils (Bld) [#/Vol] 0.0 10*3/uL [facility] Basophils/100 WBC (Bld) 0.3 % [facility] Eosinophils (Bld) [#/Vol] 0.4 10*3/uL [facility] Eosinophils/100 WBC (Bld) 8.5 % [facility] Erythrocyte distribution width (RBC) [Ratio] 14.0 % 11.5 - 15.0 % [facility] Hematocrit (Bld) [Volume fraction] 21.2 % Low 35 - 47 % [facility] Hemoglobin (Bld) [Mass/Vol] 7.3 g/dL Low 11.7 - 15.5 g/dL [facility] Interpretation and review of laboratory results Abnormal [facility] Lymphocytes (Bld) [#/Vol] 0.4 10*3/uL Low [facility] Lymphocytes/100 WBC (Bld) 10.0 % [facility] MCH (RBC) [Entitic mass] 30.7 pg 27 - 34 pg [facility] MCHC (RBC) [Mass/Vol] 34.3 g/dL 32 - 3 6 g/dL [facility] MCV (RBC) [Entitic vol] 90 fL 80 - 100 fL [facility] Monocytes (Bld) [#/Vol] 0.5 10*3/uL [facility] Monocytes/100 WBC (Bld) 10.6 % [facility] Neutrophils (Bld) [#/Vol] 3.1 10*3/uL [facility] Neutrophils/100 WBC (Bld) 70.6 % [facility] Platelet mean volume (Bld) [Entitic vol] 6.4 fL Low 7 - 12 fL [facility] Platelets (Bld) [#/Vol] 201 10*3/uL [facility] RBC (Bld) [#/Vol] 2.37 10*6/uL Low [facility] WBC corrected for nucl RBC Auto (Bld) [#/Vol] 4.3 [facility] COMPREHENSIVE METABOLIC PANE [place] 12-04-2023 Albumin [Mass/Vol] 3.2 g/dL Normal 3.2-5.3 [facility] Comment on above: Performed By: #### C BCA, CMP, , 2776- ####[facility] ([id number])5200 [facility] [place] [address] ALP [Catalytic activity/Vol] 56 U/L Normal 39-130 [facility] Comment on above: Performed By: #### C BCA, CMP, , 2776- ####[facility] ([id number])5200 [place] [address] ALT [Catalytic activity/Vol] 9 U/L Normal 0-31 [facility] Comment on above: Performed By: #### C BCA, CMP, , 2776- ####[facility] ([id number])5200 [facility] [place] [address] Anion gap [Moles/Vol] 6 mmol/L Normal 5-15 [facility] Comment on above: Performed By: #### C BCA, CMP, , 2776- ####[facility] ([id number])5200 [facility] [place] [address] AST [Catalytic activity/Vol] 15 U/L Normal 0-41 [facility] Comment on above: Performed By: #### C BCA, CMP, 2776-03 ####[facility] ([id number])5200 [facility] [place] [address] Bilirubin [Mass/Vol] 0.5 mg/dL Normal 0.3-1.2 [facility] Comment on above: Performed By: #### C BCA, CMP, 2776-03 ####[facility] ([id number])5200 [facility] [place] [address] Calcium [Mass/Vol] 9.2 mg/dL Normal 8.5-10.5 [facility] Comment on above: Performed By: #### C BCA, CMP, 2776-03 ####[facility] ([id number])5200 [facility] [place] [address] Chloride [Moles/Vol] 107 mmol/L Normal 98-109 [facility] Comment on above: Performed By: #### C BCA, CMP, 2776-03 ####[facility] ([id number])5200 [facility] [place] [address] CO2 [Moles/Vol] 25 mmol/L Normal 22-32 [facility] Comment on above: Performed By: #### C BCA, CMP, 2776-03 ####[facility] ([id number])5200 [facility] [place] [address] Creatinine [Mass/Vol] 2.81 mg/dL High 0.40-1.00 [facility] Comment on above: Result Comment: METH OD TRACEABLE TO IDMS STANDARD Performed By: #### C BCA, CMP, 2776-03 ####[facility] ([id number])5200 [facility] [place] [address] GFR/1.73 sq M.predicted among non-blacks MDRD (S/P/Bld) [Vol rate/Area] 19 mL/min/{1.73_m2} Low >59 [facility] Comment on above: Result Comment: Reported eGFR is based on the CKD-EPI 2020 equation that does not use a race coefficient. Performed By: #### C BCA, CMP, , 2776-03 ####[facility] ([id number])5200 [facility] [place] [address] Glucose [Mass/Vol] 91 mg/dL Normal 65-99 [facility] Comment on above: Performed By: #### C BCA, CMP, , 2776-03 ####[facility] ([id number])5200 [facility] [place] [address] Potassium [Moles/Vol] 3.4 mmol/L Low 3.5-5.0 [facility] Comment on above: Performed By: #### C LUCIA, CMP, , 2776-03 ####[facility] ([id number])5200 [facility] [place] [address] Protein [Mass/Vol] 5.4 g/dL Low 6.0-8.0 [facility] Comment on above: Performed By: #### C LUCIA, [facility], , 2776-03 ####[facility] ([id number])5200 [facility] [place] [address] Sodium [Moles/Vol] 138 mmol/L Normal 134-146 [facility] [place] Comment on above: Performed By: #### C BCA, CMP, , 2776-03 ####[facility] ([id number])5200 [facility] [place] [address] Urea nitrogen [Mass/Vol] 24 mg/dL High 5-23 [facility] Comment on above: Performed By: #### C BCA, CMP, 2776-03 ####[facility] ([id number])5200 [facility] [place] [address] Calcium.ionized (Bld) [Mass/ Vol]on 12-04-2023 [facility] IONIZED CALCIUM 5.0 mg/dL Normal 4.5-5.3 [facility] Comment on above: Performed By: #### 3 8230-9 ####[facility] ([id number])5200 [facility] [place] [address] Comprehensive metabolic pane rome 12-04-2023 Albumin [Mass/Vol] 3.2 g/dL 3.2 - 5.3 g/dL [facility] ALP [Catalytic activity/Vol] 56 U/L 39 - 130 U/L [facility] ALT No additional P-5'-P [Catalytic activity/Vol] 9 U/L 0 - 31 U/L [facility] Anion gap [Moles/Vol] 6 mmol/L 5 - 15 mmol/L [facility] AST [Catalytic activity/Vol] 15 U/L 0 - 41 U/L [facility] Bilirubin [Mass/Vol] 0.5 mg/dL 0.3 - 1 .2 mg/dL [facility] Calcium [Mass/Vol] 9.2 mg/dL 8.5 - 10. 5 mg/dL [facility] Chloride [Moles/Vol] 107 mmol/L 98 - 10 9 mmol/L [facility] CO2 [Moles/Vol] 25 mmol/L 22 - 32 mmol/L [facility] Creatinine [Mass/Vol] 2.81 mg/dL High 0.40 - 1.00 mg/dL [facility] Comment on above: METHOD TRACEABLE TO IDPR STANDARD eGFR (CKD-EPI)non-race dependent 19 Low - PINF [facility] Comment on above: Reported eGFR is based on the CKD-EPI 2020 equation that does not use a race coefficient. Glucose [Mass/Vol] 91 mg/dL 65 - 99 mg/dL [facility] Interpretation and review of laboratory results Abnormal [facility] Potassium [Moles/Vol] 3.4 mmol/L Low 3.5 - 5.0 mmol/L [facility] Protein [Mass/Vol] 5.4 g/dL Low 6.0 - 8.0 g/dL [facility] Sodium [Moles/Vol] 138 mmol/L 134 - 146 mmol/L [facility] Urea nitrogen [Mass/Vol] 24 mg/dL High 5 - 23 mg/dL [facility] Folate [Mass/Vol]on 12-04-19 24 FOLIC ACID 9.7 ng/mL Normal >5.8 [facility] Comment on above: Result Comment: NEW REFERENCE RANGE Performed By: #### B MP, CBC #### [facility] ([id number]) [address] [place] [address] #### [id number] #### [facility] ([id number]) [address], [address] [place] [address] IRON PROFILEon 12-04-2023 Iron [Mass/Vol] ug/dL Low 50-170 [facility] Comment on above: Performed By: #### Willis MP, CBC #### [facility] ([id number]) [address] [place] [address] #### [id number] #### [facility] ([id number]) [address], [address] [place] [address] IRON BINDING 272 ug/dL Normal 250-425 [facility] Comment on above: Performed By: #### Willis MP, CBC #### [facility] ([id number]) [address] [place] [address] #### [id number] #### [facility] ([id number]) [address], [address] [place] [address] IRON SATURATION <4 Low 15-50 [facility] Comment on above: Performed By: #### Willis MP, CBC #### [facility] ([id number]) [address] [place] [address] #### [id number] #### [facility] ([id number]) [address], [address] [place] [address] Ionized calciumon 12-04-2023 Calcium.ionized (Bld) [Mass/Vol] 5.0 mg/dL 4.5 - 5.3 mg/dL [facility] MAGNESIUMon 12-04-2023 Magnesium [Mass/Vol] 1.9 mg/dL Normal 1.8-2.6 [facility] Comment on above: Performed By: #### C BCA, CMP, , 2776-03 ####[facility] ([id number])5200 [place] [address] Magnesiumon 12-04-2023 Magnesium [Mass/Vol] 1.9 mg/dL 1.8 - 2 .6 mg/dL [facility] No Panel Informationon 12-03 [facility] PHOSPHORUSon 12-04-2023 Phosphate [Mass/Vol] 3.9 mg/dL Normal 2.4-4.9 [facility] Comment on above: Performed By: #### C BCA, CMP, , 2776-03 ####[facility] ([id number])5200 [place] [address] POTASSIUMon 12-04-2023 Potassium [Moles/Vol] 3.7 mmol/L Normal 3.5-5.0 [facility] Comment on above: Performed By: #### B MP, CBC #### [facility] ([id number]) [address] [place] [address] #### [id number] #### [facility] ([id number]) [address] [place] [address], [address] [place] [address] Phosphoruson 12-04-2023 Phosphate [Mass/Vol] 3.9 mg/dL 2.4 - 4 .9 mg/dL [facility] Potassiumon 12-04-2023 Potassium [Moles/Vol] 3.7 mmol/L 3.5 - 5.0 mmol/L [facility] Potassium [Moles/Vol]on [facility] Protein electrophoresis, ser umon 12-04-2023 Albumin [Mass/Vol] 3.1 g/dL Low 3.4 - 5.3 g/dL [facility] Alpha 1 globulin Elph [Mass/Vol] 0.4 g/dL 0.1 - 0.4 g/dL [facility] Alpha 2 globulin Elph [Mass/Vol] 0.7 g/dL 0.4 - 1.1 g/dL [facility] Beta globulin Elph [Mass/Vol] 0.7 g/dL 0.5 - 1.2 g/dL [facility] Gamma globulin Elph [Mass/Vol] 0.6 g/dL 0.5 - 1.6 g/dL [facility] Interpretation and review of laboratory results Abnormal [facility] Pathologist interpretation (Bld) [Interp] Unremarkable protein distribution, no monoclonal bands. [facility] Protein [Mass/Vol] 5.4 g/dL Low 6.0 - 8.0 g/dL [facility] US RETROPERITONEAL COMPLETEo n 12-04-2023 US RETROPERITONEAL [...] Jack MD on 12/04/2023 9:23 AM Normal [facility] US Retroperitoneumon 024 ULTRASOUND RETROPERITONEUM INDICATION: Acute [...] Jesus Jack MD on 12/04/2023 9:23 AM [facility] - 12/04/2023 ULTRASOUND RETROPERITONEUM INDICATION: Acute [...] Jesus Jack MD on 12/04/2023 9:23 AM Indexing Radiology Study observation (narrative) [employer] US RetroperitoneumOrdered By : Jesus Jack on 12-04-2023 Indexing Work Phone: VITAMIN B12on 12-04-2023 Cobalamin (Vitamin B12) [Mass/Vol] 185 pg/mL Normal 180-914 [facility] Comment on above: Performed By: #### B MP, CBC #### [facility] ([id number]) [address] [place] [address] #### [phone] #### [facility] ([id number]) [address] [place] [address], [address] [place] [address] JUSTIN Screen w/ Reflexon 12-02 Nuclear Ab IA Ql (S) Negative Negativ e^N egative [facility] Comment on above: Testing performed using multiplex flow immunoassay. Eleven different antigens associated with systemic autoimmune diseases (dsDNA,Sm,Sm/POWERTRAIN ENGINEER,POWERTRAIN ENGINEER,Chromatin, SSA,SSB,Alice-1,Scl70,Ribo P,Centromere B) are included in this screening test. APTTon 12-03-2023 aPTT Coag (PPP) [Time] 35 s Pr [employer] Auto Diff (add on use only)o n 12-03-2023 Basophils (Bld) [#/Vol] 0.0 10*3/uL [facility] Basophils/100 WBC (Bld) 0.4 % [employer] Eosinophils (Bld) [#/Vol] 0.3 10*3/uL [facility] Eosinophils/100 WBC (Bld) 6.0 % [facility] Lymphocytes (Bld) [#/Vol] 0.6 10*3/uL Low [facility] Lymphocytes/100 WBC (Bld) 10.9 % [facility] Monocytes (Bld) [#/Vol] 0.5 10*3/uL [facility] Monocytes/100 WBC (Bld) 9.4 % [facility] Neutrophils (Bld) [#/Vol] 4.2 10*3/uL [facility] Neutrophils/100 WBC (Bld) 73.3 % [facility] CBC without diffon Erythrocyte distribution width (RBC) [Ratio] 14.2 % 11.5 - 15.0 % [facility] Hematocrit (Bld) [Volume fraction] 22.9 % Low 35 - 47 % [facility] Hemoglobin (Bld) [Mass/Vol] 8.0 g/dL Low 11.7 - 15.5 g/dL [facility] MCH (RBC) [Entitic mass] 31.3 pg 27 - 34 pg [facility] MCHC (RBC) [Mass/Vol] 34.9 g/dL 32 - 3 6 g/dL [facility] MCV (RBC) [Entitic vol] 90 fL 80 - 100 fL [facility] Platelet mean volume (Bld) [Entitic vol] 6.5 fL Low 7 - 12 fL [facility] Platelets (Bld) [#/Vol] 233 10*3/uL [facility] RBC (Bld) [#/Vol] 2.55 10*6/uL Low [facility] WBC corrected for nucl RBC Auto (Bld) [#/Vol] 5.8 [facility] CK Totalon 12-03-2023 CK [Catalytic activity/Vol] 52 U/L 24 - 170 U/L [facility] CK [Catalytic activity/Vol]o n 12-03-2023 [facility] CPK 52 U/L Normal 24-170 [facility] Comment on above: Performed By: #### 2 823-3 #### [facility] ([id number]) [address] [place] [address], [place] [address] COMPLEMENT PROFILEon 024 COMPLEMENT C3 158 mg/dL Normal 86-184 [facility] Comment on above: Performed By: #### 2 823-3 #### [facility] ([id number]) [address] [place] [address] COMPLEMENT C4 38 mg/dL Normal 16-47 [facility] Comment on above: Performed By: #### 2 823-3 #### [facility] ([id number]) [address] [place] [address] COMPLETE BLOOD COUNTon 12-02 Erythrocyte distribution width (RBC) [Ratio] 14.2 % Normal 11.5-15.0 [facility] Comment on above: Performed By: #### C BC, DIFFA, CMP, , ####[facility] ([id number])5200 [place] [address] Hematocrit (Bld) [Volume fraction] 22.9 % Low 35-47 [facility] Comment on above: Performed By: #### C BC, DIFFA, CMP, ####[facility] ([id number])5200 [place] [address] Hemoglobin (Bld) [Mass/Vol] 8.0 g/dL Low 11.7-15.5 [facility] Comment on above: Performed By: #### C BC, DIFFA, CMP, , ####[facility] ([id number])5200 [facility] [place] [address] MCH (RBC) [Entitic mass] 31.3 pg Normal 27-34 [facility] Comment on above: Performed By: #### C BC, DIFFA, CMP, ####[facility] ([id number])5200 [facility] [place] [address] MCHC (RBC) [Mass/Vol] 34.9 g/dL Normal 32-36 [facility] Comment on above: Performed By: #### C BC, DIFFA, CMP, , ####[facility] ([id number])5200 [facility]THE [place] [address] MCV (RBC) [Entitic vol] 90 fL Normal 80-100 [facility] Comment on above: Performed By: #### C BC, DIFFA, CMP, , ####[facility] ([id number])5200 [facility] [place] [address] Platelet mean volume (Bld) [Entitic vol] 6.5 fL Low 7-12 [facility] Comment on above: Performed By: #### C BC, DIFFA, CMP, , ####[facility] ([id number])5200 [facility] [place] [address] Platelets (Bld) [#/Vol] 233 10*3/uL Normal 150-450 [facility] Comment on above: Performed By: #### C BC, DIFFA, CMP, , ####[facility] ([id number])5200 [facility] [place] [address] RBC COUNT 2.55 X10E12/L Low 3.80-5.20 [facility] Comment on above: Performed By: #### C BC, DIFFA, CMP, , ####[facility] ([id number])5200 [facility] [place] [address] WBC (Bld) [#/Vol] 5.8 10*3/uL Normal 4.0-11.0 [facility] [place] Comment on above: Performed By: #### C BC, DIFFA, CMP, , ####[facility] ([id number])5200 [facility] [place] [address] COMPREHENSIVE METABOLIC PANE [place] 12-03-2023 Albumin [Mass/Vol] 3.3 g/dL Normal 3.2-5.3 [facility] [place] Comment on above: Performed By: #### C BC, DIFFA, CMP, ####[facility] ([id number])[address] [place] [address] ALP [Catalytic activity/Vol] 60 U/L Normal 39-130 [facility] Comment on above: Performed By: #### C BC, DIFFA, CMP, ####[facility] ([id number])[address] [place] [address] ALT [Catalytic activity/Vol] 10 U/L Normal 0-31 [facility] Comment on above: Performed By: #### C BC, DIFFA, CMP, , ####[facility] ([id number])[address] [place] [address] Anion gap [Moles/Vol] 8 mmol/L Normal 5-15 [facility] Comment on above: Performed By: #### C BC, DIFFA, CMP, , ####[facility] ([id number])[address] [place] [address] AST [Catalytic activity/Vol] 19 U/L Normal 0-41 [facility] Comment on above: Performed By: #### C BC, DIFFA, CMP, ####[facility] ([id number])[address] [place] [address] Bilirubin [Mass/Vol] 0.6 mg/dL Normal 0.3-1.2 [facility] Comment on above: Performed By: #### C BC, DIFFA, CMP, ####[facility] ([id number])[address] [place] [address] Calcium [Mass/Vol] 9.2 mg/dL Normal 8.5-10.5 [facility] [place] Comment on above: Performed By: #### C BC, DIFFA, CMP, ####[facility] ([id number])5200 [facility] [place] [address] Chloride [Moles/Vol] 104 mmol/L Normal 98-109 [facility] Comment on above: Performed By: #### C BC, DIFFA, CMP, , ####[facility] ([id number])5200 [facility] [place] [address] CO2 [Moles/Vol] 25 mmol/L Normal 22-32 [facility] Comment on above: Performed By: #### C BC, DIFFA, [facility], ####[facility] ([id number])5200 [facility] [place] [address] Creatinine [Mass/Vol] 2.49 mg/dL High 0.40-1.00 [facility] Comment on above: Result Comment: METH OD TRACEABLE TO IDMS STANDARD Performed By: #### C BC, DIFFA, [facility], ####[facility] ([id number])5200 [facility] [place] [address] GFR/1.73 sq M.predicted among non-blacks MDRD (S/P/Bld) [Vol rate/Area] 23 mL/min/{1.73_m2} Low >59 [facility] Comment on above: Result Comment: Reported eGFR is based on the CKD-EPI 2020 equation that does not use a race coefficient. Performed By: #### C BC, DIFFA, CMP, ####[facility] ([id number])5200 [facility] [place] [address] Glucose [Mass/Vol] 103 mg/dL High 65-99 [facility] [place] [facility] Comment on above: Performed By: #### C BC, DIFFA, CMP, ####[facility] ([id number])5200 [facility] [place] [address] Potassium [Moles/Vol] 3.1 mmol/L Low 3.5-5.0 [facility] Comment on above: Performed By: #### C BC, DIFFA, CMP, ####[facility] ([id number])[address] [place] [address] Protein [Mass/Vol] 5.5 g/dL Low 6.0-8.0 [facility] [place] Comment on above: Performed By: #### C BC, DIFFA, CMP, , ####[facility] ([id number])5200 [facility] [place] [address] Sodium [Moles/Vol] 137 mmol/L Normal 134-146 [facility] [place] Comment on above: Performed By: #### C BC, DIFFA, CMP, , ####[facility] ([id number])5200 [facility] [place] [address] Urea nitrogen [Mass/Vol] 25 mg/dL High 5-23 [facility] Comment on above: Performed By: #### C BC, DIFFA, CMP, ####[facility] ([id number])5200 [facility] [place] [address] Complement profile (C3 AND C 4)on 12-03-2023 Complement C3 [Mass/Vol] 158 mg/dL 86 - 184 mg/dL [facility] Complement C4 [Mass/Vol] 38 mg/dL 16 - 47 mg/dL [facility] Comprehensive metabolic pane rome 12-03-2023 Albumin [Mass/Vol] 3.3 g/dL 3.2 - 5.3 g/dL [facility] ALP [Catalytic activity/Vol] 60 U/L 39 - 130 U/L [facility] ALT No additional P-5'-P [Catalytic activity/Vol] 10 U/L 0 - 31 U/L [facility] Anion gap [Moles/Vol] 8 mmol/L 5 - 15 mmol/L [facility] AST [Catalytic activity/Vol] 19 U/L 0 - 41 U/L [facility] Bilirubin [Mass/Vol] 0.6 mg/dL 0.3 - 1 .2 mg/dL [facility] Calcium [Mass/Vol] 9.2 mg/dL 8.5 - 10. 5 mg/dL [facility] Chloride [Moles/Vol] 104 mmol/L 98 - 10 9 mmol/L [facility] CO2 [Moles/Vol] 25 mmol/L 22 - 32 mmol/L [facility] Creatinine [Mass/Vol] 2.49 mg/dL High 0.40 - 1.00 mg/dL [facility] Comment on above: METHOD TRACEABLE TO [facility] STANDARD eGFR (CKD-EPI)non-race dependent 23 Low - PINF [facility] Comment on above: Reported eGFR is based on the CKD-EPI 2020 equation that does not use a race coefficient. Glucose [Mass/Vol] 103 mg/dL High 65 - 99 mg/dL [facility] Potassium [Moles/Vol] 3.1 mmol/L Low 3.5 - 5.0 mmol/L [facility] Protein [Mass/Vol] 5.5 g/dL Low 6.0 - 8.0 g/dL [facility] Sodium [Moles/Vol] 137 mmol/L 134 - 146 mmol/L [facility] Urea nitrogen [Mass/Vol] 25 mg/dL High 5 - 23 mg/dL [facility] DIFFERENTIALon 12-03-2023 ABSOLUTE BASOPHIL 0.0 X10E9/L Normal 0.0-0.2 [facility] Comment on above: Performed By: #### C BC, DIFFA, [facility], ####[facility] ([id number])[address] [place] [address] ABSOLUTE NEUTROPHIL 4.2 X10E9/L Normal 1.5-6.6 [facility] Comment on above: Performed By: #### C BC, DIFFA, [facility], ####[facility] ([id number])[address] [place] [address] Basophils/100 WBC (Bld) 0.4 % Normal [facility] Comment on above: Performed By: #### C BC, DIFFA, CMP, ####[facility] ([id number])[address] [place] [address] Eosinophils (Bld) [#/Vol] 0.3 10*3/uL Normal 0.0-0.4 [facility] Comment on above: Performed By: #### C BC, DIFFA, CMP, ####[facility] ([id number])[address] [place] [address] Eosinophils/100 WBC (Bld) 6.0 % Normal [facility] Comment on above: Performed By: #### C BC, DIFFA, CMP, ####[facility] ([id number])[address] [place] [address] Lymphocytes (Bld) [#/Vol] 0.6 10*3/uL Low 1.0-3.5 [facility] Comment on above: Performed By: #### C BC, DIFFA, CMP, ####[facility] ([id number])[address] [place] [address] Lymphocytes/100 WBC (Bld) 10.9 % Normal [facility] Comment on above: Performed By: #### C BC, DIFFA, CMP, ####[facility] ([id number])[address] [place] [address] Monocytes (Bld) [#/Vol] 0.5 10*3/uL Normal 0-0.9 [facility] Comment on above: Performed By: #### C BC, DIFFA, CMP, ####[facility] ([id number])[address] [place] [address] Monocytes/100 WBC (Bld) 9.4 % Normal [facility] Comment on above: Performed By: #### C BC, DIFFA, CMP, , ####[facility] ([id number])[address] [place] [address] Neutrophils/100 WBC (Bld) 73.3 % Normal [facility] Comment on above: Performed By: #### C BC, DIFFA, CMP, , ####[facility] ([id number])[address] [place] [address] ECG 12 leadon 12-03-2023 TRACEMASTERVUE [facility] Glomerular basement membrane IgG ABon 12-03-2023 Glomerular basement membrane IgG Qn (S) [facility] Glomerular basement membrane IgG Qn (S)on 12-03-2023 GBM IgG Ab <0.2 Normal <1.0 [facility] Comment on above: Performed By: #### 2 823-3 #### [facility] ([id number]) [address] [place] [address] MAGNESIUMon 12-03-2023 Magnesium [Mass/Vol] 2.2 mg/dL Normal 1.8-2.6 [facility] Comment on above: Performed By: #### 2 823-3 #### [facility] ([id number]) [address] [place] [address] Magnesium [Mass/Vol] 1.5 mg/dL Low 1.8-2.6 [facility] Comment on above: Performed By: #### C BC, DIFFA, CMP, , ####[facility] ([id number])[address] [place] [address] Magnesiumon 12-03-2023 Magnesium [Mass/Vol] 2.2 mg/dL 1.8 - 2 .6 mg/dL [facility] Magnesium [Mass/Vol] 1.5 mg/dL Low 1.8 - 2 .6 mg/dL [facility] Myeloperoxidase ABon 024 Myeloperoxidase Ab Qn (S) NINF [facility] Myeloperoxidase Ab Qn (S)on 12-03-2023 Myeloperoxidase Ab <0.2 Normal <1.0 [facility] Comment on above: Performed By: #### 2 823-3 #### [facility] ([id number]) [facility] [place] [address] No Panel Informationon 12-02 [facility] Interpretation and review of laboratory results Abnormal [facility] Interpretation and review of laboratory results Abnormal [facility] Nuclear Ab IA Ql (S)on 12-02 [facility] JUSTIN Screen w/reflex Negative Normal NEG [facility] Comment on above: Result Comment: Testing performed using multiplex flow immunoassay. Eleven different antigens associated with systemic autoimmune diseases (dsDNA,Sm,Sm/POWERTRAIN ENGINEER,POWERTRAIN ENGINEER,Chromatin, SSA,SSB,Alice-1,Scl70,Ribo P,Centromere B) are included in this screening test. Performed By: #### 2 823-3 #### [facility] ([id number]) [facility] [place] [address] POTASSIUMon 12-03-2023 Potassium [Moles/Vol] 3.6 mmol/L Normal 3.5-5.0 [facility] Comment on above: Performed By: #### 2 823-3 #### [facility] ([id number]) [address] [place] [address] PROTEIN CREAT RATIOon 2023 RANDOM URINE PROTEIN 130 mg/L High <120 [facility] Comment on above: Performed By: #### 2 955-3, UPCR, UA ####[facility] ([id number])[address] [place] [address] U/PRO/TEACHER ASST RATIO CALC 0.30 High <0.2 [facility] Comment on above: Result Comment: Neph rotic Syndrome is associated with ratios >3.5 Performed By: #### 2 955-3, UPCR, UA ####[facility] ([id number])[address] [facility] [place] [address] URINE CREATININE,RDM 43.64 mg/dL Normal Pro [facility] Comment on above: Performed By: #### 2 955-3, UPCR, UA ####[facility] ([id number])[address] [place], [place] [address] Potassiumon 12-03-2023 Potassium [Moles/Vol] 3.6 mmol/L 3.5 - 5.0 mmol/L [facility] Protein creat ratioon 2023 Creatinine (U) [Mass/Vol] 43.64 mg/dL [facility] Interpretation and review of laboratory results Abnormal [facility] Protein (U) [Mass/Vol] 130 mg/L High NINF - 120 mg/L [facility] Protein/Creatinine (U) [Ratio] 0.30 High [facility] Comment on above: Nephrotic Syndrome i s associated with ratios >3.5 Proteinase 3 AB PR3on 2023 Proteinase 3 Ab Qn (S) NINF [facility] Proteinase 3 Ab Qn (S)on Proteinase 3 IgG Ab <0.2 Normal <1.0 [facility] Comment on above: Performed By: #### 2 823-3 #### [facility] ([id number]) [address] [place] [address] SERUM PROTEIN ELECTROPHORESI Son 12-03-2023 Albumin [Mass/Vol] 3.1 g/dL Low 3.4-5.3 [facility] Comment on above: Performed By: #### 2 823-3 #### [facility] ([id number]) [address] [place] [address] ALPHA 1 GLOBULIN 0.4 g/dL Normal 0.1-0.4 [facility] Comment on above: Performed By: #### 2 823-3 #### [facility] ([id number]) [address] [place] [address] ALPHA 2 GLOBULIN 0.7 g/dL Normal 0.4-1.1 [facility] Comment on above: Performed By: #### 2 823-3 #### [facility] ([id number]) [address] [place] [address] BETA GLOBULIN 0.7 g/dL Normal 0.5-1.2 [facility] Comment on above: Performed By: #### 2 823-3 #### [facility] ([id number]) [address] [place] [address] GAMMA GLOBULIN 0.6 g/dL Normal 0.5-1.6 [facility] Comment on above: Performed By: #### 2 823-3 #### [facility] ([id number]) [address] [place] [address] PROT. ELECTROPHORESIS INTERP Unremarkable protein distribution, no monoclonal bands. Normal [facility] Comment on above: Performed By: #### 2 823-3 #### [facility] ([id number]) [address] [place] [address] Protein [Mass/Vol] 5.4 g/dL Low 6.0-8.0 [facility] Comment on above: Performed By: #### 2 823-3 #### [facility] ([id number]) [address] [place] [address] Sodium, urine, randomon Sodium (U) [Moles/Vol] 43 mmol/L Pr [facility] Sodium (U) [Moles/Vol] 53 mmol/L Pr [facility] URINALYSISon 12-03-2023 Bilirubin Ql (U) Negative Normal NEG [facility] Comment on above: Performed By: #### 2 955-3, UPCR, UA ####[facility] ([id number])[address] [place] [address] BLOOD/HGB Negative Normal NEG [facility] Comment on above: Performed By: #### 2 955-3, UPCR, UA ####[facility] ([id number])[address] [place] [address] Color (U) YELLOW Normal YELLOW [facility] Comment on above: Performed By: #### 2 955-3, UPCR, UA ####[facility] ([id number])[address] [facility] [place] [address] Glucose Ql (U) Negative Normal NEG [facility] Comment on above: Performed By: #### 2 955-3, UPCR, UA ####[facility] ([id number])[address] [facility] [place] [address] Ketones Ql (U) Negative Normal NEG [facility] Comment on above: Performed By: #### 2 955-3, UPCR, UA ####[facility] ([id number])[address] [facility] [place] [address] Leukocyte esterase Test strip Ql (U) Negative Normal NEG [facility] Comment on above: Performed By: #### 2 955-3, UPCR, UA ####[facility] ([id number])[address] [facility] [place] [address] Nitrite Ql (U) Negative Normal NEG [facility] Comment on above: Performed By: #### 2 955-3, UPCR, UA ####[facility] ([id number])[address] [facility] [place] [address] pH (U) 6.0 [pH] Normal 5.0-8.5 [facility] Comment on above: Performed By: #### 2 955-3, UPCR, UA ####[facility] ([id number])[address] [facility] [place] [address] Protein Ql (U) Negative Normal NEG [facility] Comment on above: Performed By: #### 2 955-3, UPCR, UA ####[facility] ([id number])[address] [facility] [place] [address] Specific gravity (U) [Rel density] 1.010 Normal 1.003-1.03 5 [facility] Comment on above: Performed By: #### 2 955-3, UPCR, UA ####[facility] ([id number])[address] [place] [address] TURBIDITY CLEAR Normal CLEAR [facility] Comment on above: Performed By: #### 2 955-3, UPCR, UA ####[facility] ([id number])[address] [place] [address] Urobilinogen Qn (U) 0.2 {Ansley'U}/dL Normal <1.1 [facility] Comment on above: Performed By: #### 2 955-3, UPCR, UA ####[facility] ([id number])[address] [place] [address] URINE SODIUM,RANDOMon 2023 Sodium (U) [Moles/Vol] 43 mmol/L Normal Pr [facility] Comment on above: Performed By: #### 2 823-3 #### [facility] ([id number]) [address] [place] [address] Urinalysison 12-03-2023 Bilirubin Ql (U) Negative Negative^N egative [facility] Color (U) YELLOW YELLOW^YEL LOW [facility] Glucose (U) [Mass/Vol] Negative Negat hallie^N egative mg/dL [facility] Hemoglobin Auto test strip Ql (U) Negative Negative^N egative [facility] Ketones (U) [Mass/Vol] Negative Negat hallie^N egative mg/dL [facility] Leukocyte esterase Auto test strip Ql (U) Negative Negative^N egative [facility] Nitrite Auto test strip Ql (U) Negative Negative^N egative [facility] pH (U) 6.0 [pH] 5.0 - 8.5 [facility] Protein (U) [Mass/Vol] Negative Negat hallie^N egative mg/dL [facility] Specific gravity Refractometry automated (U) [Rel density] 1.010 1.003 - 1.035 [facility] Turbidity Ql (U) CLEAR CLEAR^TWIN R [facility] Urobilinogen Qn (U) 0.[address] [facility] Bilirubin Ql (U) Negative Negative^N egative [facility] Color (U) YELLOW YELLOW^YEL LOW [facility] Epithelial cells Auto (Urine sed) [#/Area] 4 [facility] Glucose (U) [Mass/Vol] Negative Negat hallie^N egative mg/dL [facility] Hemoglobin Auto test strip Ql (U) Negative Negative^N egative [facility] Interpretation and review of laboratory results Abnormal [facility] Ketones (U) [Mass/Vol] Negative Negat hallie^N egative mg/dL [facility] Leukocyte esterase Auto test strip Ql (U) SMALL Abnormal Negative^N egative [facility] Nitrite Auto test strip Ql (U) Negative Negative^N egative [facility] pH (U) 6.0 [pH] 5.0 - 8.5 [facility] Protein (U) [Mass/Vol] Negative Negat hallie^N egative mg/dL [facility] RBC Auto (Urine sed) [#/Area] 0 [facility] Specific gravity Refractometry automated (U) [Rel density] 1.010 1.003 - 1.035 [facility] Turbidity Ql (U) CLEAR CLEAR^TWIN R [facility] Urobilinogen Qn (U) 0.2 [facility] WBC Auto (Urine sed) [#/Area] 7 High [facility] Urine Creatinine,randomon Creatinine (U) [Mass/Vol] 56.74 mg/dL [facility] Vancomycin [Mass/Vol]on VANCOMYCIN 34.7 ug/mL Normal 5.0-40.0 [facility] Comment on above: Result Comment: Peak 30-40 ug/mL Trough 5-20 ug/ml Performed By: #### C BC, DIFFA, CMP, 86376-4, 53591-0 ####[facility] ([id number])[address] [place] [address] Vancomycin, randomon 024 Vancomycin [Mass/Vol] 34.7 ug/mL 5.0 - 40.0 ug/mL [facility] Comment on above: Peak 30-40 ug/mL Trough 5-20 ug/ml aPTT Coag (PPP) [Time]on [facility] BLOOD CULTUREon 12-02-2023 Bacteria identified Aer cx Nom (Bld) SPECIMEN NOTES SUBOPTIMAL VOLUME OF BLOOD COLLECTED, RESULTS MAY BE AFFECTED. CULTURE RESULTS NO GROWTH 5 DAYS Normal [facility] Comment on above: Performed By: #### 1 7928-3 ####[facility] ([id number])[address] [facility], [address] [place] [address] Bacteria identified Aer cx Nom (Bld) SPECIMEN NOTES SUBOPTIMAL VOLUME OF BLOOD COLLECTED, RESULTS MAY BE AFFECTED. CULTURE RESULTS NO GROWTH 5 DAYS Normal [facility] Comment on above: Performed By: #### 1 7928-3 ####[facility] ([id number])[address], [place] [address] CBC AND AUTO DIFFon 12-02-19 24 ABSOLUTE BASOPHIL 0.0 X10E9/L Normal 0.0-0.2 [facility] Comment on above: Performed By: #### C BCA, 90617-6, CMP, 77296-0 ####[facility] ([id number])[address] [place] [address] ABSOLUTE NEUTROPHIL 6.3 X10E9/L Normal 1.5-6.6 [facility] Comment on above: Performed By: #### C BCA, 78861-8, CMP, 44768-1 ####[facility] ([id number])[address] [place] [address] Basophils/100 WBC (Bld) 0.3 % Normal [facility] Comment on above: Performed By: #### C LUCIA, 47673-7, CMP, 38414-3 ####[facility] ([id number])[address] [facility] [place] [address] Eosinophils (Bld) [#/Vol] 0.4 10*3/uL Normal 0.0-0.4 [facility] Comment on above: Performed By: #### C BCA, 72207-2, CMP, 71902-7 ####[facility] ([id number])[address] [facility] [place] [address] Eosinophils/100 WBC (Bld) 5.1 % Normal [facility] Comment on above: Performed By: #### C LUCIA, 26483-9, CMP, 26956-9 ####[facility] ([id number])[address] [facility] [place] [address] Erythrocyte distribution width (RBC) [Ratio] 14.2 % Normal 11.5-15.0 [facility] Comment on above: Performed By: #### C LUCIA, 34045-6, CMP, 18082-8 ####[facility] ([id number])[address] [facility] [place] [address] Hematocrit (Bld) [Volume fraction] 26.0 % Low 35-47 [facility] Comment on above: Performed By: #### C LUCIA, 44248-8, CMP, 94180-5 ####[facility] ([id number])[address] [facility] [place] [address] Hemoglobin (Bld) [Mass/Vol] 9.1 g/dL Low 11.7-15.5 [facility] Comment on above: Performed By: #### C BCA, 64374-7, CMP, 17488-3 ####[facility] ([id number])[address] [facility] [place] [address] Lymphocytes (Bld) [#/Vol] 0.5 10*3/uL Low 1.0-3.5 [facility] Comment on above: Performed By: #### C BCA, 52618-8, CMP, 30791-3 ####[facility] ([id number])[address] [place] [address] Lymphocytes/100 WBC (Bld) 6.7 % Normal [facility] Comment on above: Performed By: #### C BCA, 28157-4, CMP, 62193-4 ####[facility] ([id number])[address] [facility] [place] [address] MCH (RBC) [Entitic mass] 31.6 pg Normal 27-34 [facility] Comment on above: Performed By: #### C BCA, 69030-7, CMP, 75146-6 ####[facility] ([id number])[address] [facility] [place] [address] MCHC (RBC) [Mass/Vol] 35.1 g/dL Normal 32-36 [facility] Comment on above: Performed By: #### C BCA, 19813-6, CMP, 94155-0 ####[facility] ([id number])[address] [facility] [place] [address] MCV (RBC) [Entitic vol] 90 fL Normal 80-100 [facility] Comment on above: Performed By: #### C BCA, 11249-4, CMP, 75808-1 ####[facility] ([id number])[address] [facility] [place] [address] Monocytes (Bld) [#/Vol] 0.6 10*3/uL Normal 0-0.9 [facility] Comment on above: Performed By: #### C BCA, 63894-5, CMP, 42994-3 ####[facility] ([id number])[address] [facility] [place] [address] Monocytes/100 WBC (Bld) 7.5 % Normal [facility] Comment on above: Performed By: #### C BCA, 23897-4, CMP, 35364-5 ####[facility] ([id number])[address] [place] [address] Neutrophils/100 WBC (Bld) 80.4 % Normal [facility] Comment on above: Performed By: #### C LUCIA, 38629-9, CMP, 28677-3 ####[facility] ([id number])[address] [facility] [place] [address] Platelet mean volume (Bld) [Entitic vol] 6.7 fL Low 7-12 [facility] Comment on above: Performed By: #### C LUCIA, 12979-3, CMP, 23176-1 ####[facility] ([id number])[address] [facility] [place] [address] Platelets (Bld) [#/Vol] 279 10*3/uL Normal 150-450 [facility] Comment on above: Performed By: #### Jamal MYERS, 12802-4, CMP, 65739-6 ####[facility] ([id number])[address] [facility] [place] [address] RBC COUNT 2.89 X10E12/L Low 3.80-5.20 [facility] Comment on above: Performed By: #### Jamal MYERS, 45282-6, CMP, 11027-0 ####[facility] ([id number])[address] [facility] [place] [address] WBC (Bld) [#/Vol] 7.8 10*3/uL Normal 4.0-11.0 [facility] Comment on above: Performed By: #### Jamal MYERS, 09219-3, CMP, 42783-9 ####[facility] ([id number])[address] [facility] [place] [address] CBC auto differentialon 10-0 -2023 Basophils (Bld) [#/Vol] 0.0 10*3/uL [facility] Basophils/100 WBC (Bld) 0.3 % [facility] Eosinophils (Bld) [#/Vol] 0.4 10*3/uL [facility] Eosinophils/100 WBC (Bld) 5.1 % [facility] Erythrocyte distribution width (RBC) [Ratio] 14.2 % 11.5 - 15.0 % [facility] Hematocrit (Bld) [Volume fraction] 26.0 % Low 35 - 47 % [facility] Hemoglobin (Bld) [Mass/Vol] 9.1 g/dL Low 11.7 - 15.5 g/dL [facility] Interpretation and review of laboratory results Abnormal [facility] Lymphocytes (Bld) [#/Vol] 0.5 10*3/uL Low [facility] Lymphocytes/100 WBC (Bld) 6.7 % [facility] MCH (RBC) [Entitic mass] 31.6 pg 27 - 34 pg [facility] MCHC (RBC) [Mass/Vol] 35.1 g/dL 32 - 3 6 g/dL [facility] MCV (RBC) [Entitic vol] 90 fL 80 - 100 fL [facility] Monocytes (Bld) [#/Vol] 0.6 10*3/uL [facility] Monocytes/100 WBC (Bld) 7.5 % [facility] Neutrophils (Bld) [#/Vol] 6.3 10*3/uL [facility] Neutrophils/100 WBC (Bld) 80.4 % [facility] Platelet mean volume (Bld) [Entitic vol] 6.7 fL Low 7 - 12 fL [facility] Platelets (Bld) [#/Vol] 279 10*3/uL [facility] RBC (Bld) [#/Vol] 2.89 10*6/uL Low [facility] WBC corrected for nucl RBC Auto (Bld) [#/Vol] 7.8 [facility] COMPREHENSIVE METABOLIC PANE [place] 12-02-2023 Albumin [Mass/Vol] 3.8 g/dL Normal 3.2-5.3 [facility] Comment on above: Performed By: #### C BCA, 69622-0, CMP, 64108-4 ####[facility] ([id number])[address] [place] [address] ALP [Catalytic activity/Vol] 69 U/L Normal 39-130 [facility] Comment on above: Performed By: #### C BCA, 49903-7, CMP, 25124-9 ####[facility] ([id number])[address] [place] [address] ALT [Catalytic activity/Vol] 12 U/L Normal 0-31 [facility] Comment on above: Performed By: #### C BCA, 79209-1, CMP, 67365-9 ####[facility] ([id number])[address] [place] [address] Anion gap [Moles/Vol] 9 mmol/L Normal 5-15 [facility] Comment on above: Performed By: #### C BCA, 82111-5, CMP, 76795-4 ####[facility] ([id number])[address] [place] [address] AST [Catalytic activity/Vol] 24 U/L Normal 0-41 [facility] Comment on above: Performed By: #### C BCA, 34592-6, CMP, 15889-0 ####[facility] ([id number])[address] [place] [address] Bilirubin [Mass/Vol] 0.6 mg/dL Normal 0.3-1.2 [facility] Comment on above: Performed By: #### C BCA, 83667-8, CMP, 52224-8 ####[facility] ([id number])[address] [place] [address] Calcium [Mass/Vol] 9.8 mg/dL Normal 8.5-10.5 [facility] Comment on above: Performed By: #### C BCA, 27054-1, CMP, 37126-4 ####[facility] ([id number])[address] [place] [address] Chloride [Moles/Vol] 99 mmol/L Normal 98-109 [facility] Comment on above: Performed By: #### C BCA, 88117-5, CMP, 45588-8 ####[facility] ([id number])[address] [place] [address] CO2 [Moles/Vol] 25 mmol/L Normal 22-32 [facility] Comment on above: Performed By: #### C BCA, 06739-9, CMP, 49568-8 ####[facility] ([id number])[address] [place] [address] Creatinine [Mass/Vol] 2.52 mg/dL High 0.40-1.00 [facility] Comment on above: Result Comment: METH OD TRACEABLE TO IDMS STANDARD Performed By: #### C BCA, 90252-0, CMP, 62272-4 ####[facility] ([id number])[address] [facility] [place] [address] GFR/1.73 sq M.predicted among non-blacks MDRD (S/P/Bld) [Vol rate/Area] 22 mL/min/{1.73_m2} Low >59 [facility] Comment on above: Result Comment: Reported eGFR is based on the CKD-EPI 2020 equation that does not use a race coefficient. Performed By: #### C BCA, 68753-8, CMP, 85399-8 ####[facility] ([id number])[address] [facility] [place] [address] Glucose [Mass/Vol] 106 mg/dL High 65-99 [facility] Comment on above: Performed By: #### C BCA, 00665-8, CMP, 72297-0 ####[facility] ([id number])[address] [facility] [place] [address] Potassium [Moles/Vol] 3.2 mmol/L Low 3.5-5.0 [facility] Comment on above: Performed By: #### C BCA, 09823-3, CMP, 51534-7 ####[facility] ([id number])[address] [facility] [place] [address] Protein [Mass/Vol] 6.4 g/dL Normal 6.0-8.0 [facility] Comment on above: Performed By: #### C BCA, 89636-8, CMP, 43334-8 ####[facility] ([id number])5[address] [facility] [place] [address] Sodium [Moles/Vol] 133 mmol/L Low 134-146 [facility] Comment on above: Performed By: #### C BCA, 57924-5, CMP, 00155-9 ####[facility] ([id number])[address] [facility] [place] [address] Urea nitrogen [Mass/Vol] 27 mg/dL High 5-23 [facility] Comment on above: Performed By: #### C BCA, 43751-3, CMP, 03100-7 ####[facility] ([id number])[address] [facility] [place] [address] Comprehensive metabolic pane rome 12-02-2023 Albumin [Mass/Vol] 3.8 g/dL 3.2 - 5.3 g/dL [facility] ALP [Catalytic activity/Vol] 69 U/L 39 - 130 U/L [facility] ALT No additional P-5'-P [Catalytic activity/Vol] 12 U/L 0 - 31 U/L [facility] Anion gap [Moles/Vol] 9 mmol/L 5 - 15 mmol/L [facility] AST [Catalytic activity/Vol] 24 U/L 0 - 41 U/L [facility] Bilirubin [Mass/Vol] 0.6 mg/dL 0.3 - 1 .2 mg/dL [facility] Calcium [Mass/Vol] 9.8 mg/dL 8.5 - 10. 5 mg/dL [facility] Chloride [Moles/Vol] 99 mmol/L 98 - 10 9 mmol/L [facility] CO2 [Moles/Vol] 25 mmol/L 22 - 32 mmol/L [facility] Creatinine [Mass/Vol] 2.52 mg/dL High 0.40 - 1.00 mg/dL [facility] Comment on above: METHOD TRACEABLE TO IDPR STANDARD eGFR (CKD-EPI)non-race dependent 22 Low - PINF [facility] Comment on above: Reported eGFR is based on the CKD-EPI 2020 equation that does not use a race coefficient. Glucose [Mass/Vol] 106 mg/dL High 65 - 99 mg/dL [facility] Interpretation and review of laboratory results Abnormal [facility] Potassium [Moles/Vol] 3.2 mmol/L Low 3.5 - 5.0 mmol/L [facility] Protein [Mass/Vol] 6.4 g/dL 6.0 - 8.0 g/dL [facility] Sodium [Moles/Vol] 133 mmol/L Low 134 - 146 mmol/L [facility] Urea nitrogen [Mass/Vol] 27 mg/dL High 5 - 23 mg/dL [facility] Creatinine (U) [Mass/Vol]on 12-02-2023 URINE CREATININE,RDM 56.74 mg/dL Normal Pro [facility] Comment on above: Performed By: #### Karolyn Eason, 2160-09, 2954-3 ####[facility] ([id number])[address] [place] [address] Lactate (P tayla) [Moles/Vol]o n 12-02-2023 [facility] LACTATE W/REFLEX 0.7 mmol/L Normal 0.4-2.0 [facility] Comment on above: Result Comment: Result did not trigger repeat Lactate, re-order if needed. Performed By: #### C BCA, 46667-4, CMP, 96960-0 ####[facility] ([id number])5200 [place] [address] Lactate w/ Reflexon 12-02-19 24 Lactate (P tayla) [Moles/Vol] 0.7 mmol/L 0.4 - 2.0 mmol/L [facility] Comment on above: Result did not trigger repeat Lactate, re-order if needed. URINALYSISon 12-02-2023 Bilirubin Ql (U) Negative Normal NEG [facility] Comment on above: Performed By: #### Karolyn Eason, 2160-09, 2954-3 ####[facility] ([id number])5200 [facility] [place] [address] BLOOD/HGB Negative Normal NEG [facility] Comment on above: Performed By: #### Karolyn Eason, 2160-09, 3 ####[facility] ([id number])5200 [facility] [place] [address] Color (U) YELLOW Normal YELLOW [facility] Comment on above: Performed By: #### U A, 2160-09, 3 ####[facility] ([id number])5200 [facility] [place] [address] Glucose Ql (U) Negative Normal NEG [facility] Comment on above: Performed By: #### U A, 2160-09, 2954-04 ####[facility] ([id number])5200 [facility] [place] [address] Ketones Ql (U) Negative Normal NEG [facility] Comment on above: Performed By: #### U A, 2160-09, 2954-04 ####[facility] ([id number])5200 [facility] [place] [address] Leukocyte esterase Test strip Ql (U) SMALL Abnormal NEG [facility] Comment on above: Performed By: #### U A, 2160-09, 2954-04 ####[facility] ([id number])5200 [facility] [place] [address] Nitrite Ql (U) Negative Normal NEG [facility] Comment on above: Performed By: #### U A, 2160-09, 2954-04 ####[facility] ([id number])5200 [facility] [place] [address] pH (U) 6.0 [pH] Normal 5.0-8.5 [facility] Comment on above: Performed By: #### U A, 2160-09, 3 ####[facility] ([id number])5200 [facility] [place] [address] Protein Ql (U) Negative Normal NEG [facility] Comment on above: Performed By: #### U A, 2160-09, 2954-3 ####[facility] ([id number])5200 [facility] [place] [address] R.B.CELLS 0 /hpf Normal 0-5 [facility] Comment on above: Performed By: #### U Yumi, 2160-09, 2954-3 ####[facility] ([id number])5200 [facility] [place] [address] Specific gravity (U) [Rel density] 1.010 Normal 1.003-1.03 5 [facility] Comment on above: Performed By: #### U Yumi, 2160-09, 2954-3 ####[facility] ([id number])5200 [facility] [place] [address] SQUAMOUS EPITHELIUM 4 /hpf Normal 0-5 [facility] Comment on above: Performed By: #### U Yumi, 2160-09, 3 ####[facility] ([id number])5200 [facility] [place] [address] TURBIDITY CLEAR Normal CLEAR [facility] Comment on above: Performed By: #### U Yumi, 2160-09, 3 ####[facility] ([id number])5200 [facility] [place] [address] Urobilinogen Qn (U) 0.2 {Ansley'U}/dL Normal <1.1 [facility] Comment on above: Performed By: #### U Yumi, 2160-09, 2954-3 ####[facility] ([id number])5200 [facility] [place] [address] W.B.CELLS 7 /hpf High 0-5 [facility] Comment on above: Performed By: #### U A, 2160-09, 2954-3 ####[facility] ([id number])5200 [facility] [place] [address] URINE CULTUREon 12-02-2023 Bacteria identified Cx Nom (U) CULTURE RESULTS NO GROWTH AT <1000 CFU/mL Normal [facility] Comment on above: Performed By: #### 6 30-4 ####[facility] ([id number])2[address] [facility], [address] [place] [address] URINE SODIUM,RANDOMon 2023 Sodium (U) [Moles/Vol] 53 mmol/L Normal [facility] Comment on above: Performed By: #### U A, 2161-8, 2955-3 ####[facility] ([id number])5200 [facility] [place] [address] aPTT Coag (PPP) [Time]on aPTT Coag (Bld) [Time] 35 s Normal 26-37 [facility] Comment on above: Performed By: #### C BCA, 76141-4, CMP, 25655-5 ####[facility] ([id number])5200 [facility] [place] [address] BASIC METABOLIC PANLon 11-29 Anion gap [Moles/Vol] 8 mmol/L Normal 5-15 [facility] Comment on above: Performed By: #### C BCA, BMP ####[facility] ([id number])5200 [facility] [place] [address] Calcium [Mass/Vol] 9.6 mg/dL Normal 8.5-10.5 [facility] Comment on above: Performed By: #### C BCA, BMP ####[facility] ([id number])5200 [facility] [place] [address] Chloride [Moles/Vol] 105 mmol/L Normal 98-109 [facility] Comment on above: Performed By: #### C BCA, BMP ####[facility] ([id number])5200 [facility] [place] [address] CO2 [Moles/Vol] 29 mmol/L Normal 22-32 [facility] Comment on above: Performed By: #### C BCA, BMP ####[facility] ([id number])5200 [facility] [place] [address] Creatinine [Mass/Vol] 0.62 mg/dL Normal 0.40-1.00 [facility] Comment on above: Result Comment: METH OD TRACEABLE TO IDMS STANDARD Performed By: #### C BCA, BMP ####[facility] ([id number])5200 [facility] [place] [address] eGFR (CKD-EPI) NON-RACE DEPENDENT >90 Normal >59 [facility] Comment on above: Result Comment: Reported eGFR is based on the CKD-EPI 2020 equation that does not use a race coefficient. Performed By: #### C BCA, BMP ####[facility] ([id number])5200 [facility] [place] [address] Glucose [Mass/Vol] 84 mg/dL Normal 65-99 [facility] Comment on above: Performed By: #### C BCA, BMP ####[facility] ([id number])5200 [facility] [place] [address] Potassium [Moles/Vol] 3.3 mmol/L Low 3.5-5.0 [facility] Comment on above: Performed By: #### C BCA, BMP ####[facility] ([id number])5200 [facility] [place] [address] Sodium [Moles/Vol] 142 mmol/L Normal 134-146 [facility] Comment on above: Performed By: #### C BCA, BMP ####[facility] ([id number])5200 [facility] [place] [address] Urea nitrogen [Mass/Vol] 9 mg/dL Normal 5-23 [facility] Comment on above: Performed By: #### C BCA, BMP ####[facility] ([id number])5200 [facility] [place] [address] CBC AND AUTO DIFFon 09-30-20 24 ABSOLUTE BASOPHIL 0.1 X10E9/L Normal 0.0-0.2 [facility] Comment on above: Performed By: #### C BCA, BMP ####[facility] ([id number])5200 [facility] [place] [address] ABSOLUTE NEUTROPHIL 4.2 X10E9/L Normal 1.5-6.6 [facility] Comment on above: Performed By: #### C BCA, BMP ####[facility] ([id number])5200 [facility] [place] [address] Basophils/100 WBC (Bld) 0.8 % Normal [facility] Comment on above: Performed By: #### C BCA, BMP ####[facility] ([id number])5200 [facility] [place] [address] Eosinophils (Bld) [#/Vol] 0.4 10*3/uL Normal 0.0-0.4 [facility] Comment on above: Performed By: #### C BCA, BMP ####[facility] ([id number])5200 [facility] [place] [address] Eosinophils/100 WBC (Bld) 6.4 % Normal [facility] Comment on above: Performed By: #### C BCA, BMP ####[facility] ([id number])5200 [facility] [place] [address] Erythrocyte distribution width (RBC) [Ratio] 13.9 % Normal 11.5-15.0 [facility] Comment on above: Performed By: #### C BCA, BMP ####[facility] ([id number])5200 [facility] [place] [address] Hematocrit (Bld) [Volume fraction] 25.2 % Low 35-47 [facility] Comment on above: Performed By: #### C BCA, BMP ####[facility] ([id number])5200 [facility] [place] [address] Hemoglobin (Bld) [Mass/Vol] 8.8 g/dL Low 11.7-15.5 [facility] Comment on above: Performed By: #### C BCA, BMP ####[facility] ([id number])5200 [facility] [place] [address] Lymphocytes (Bld) [#/Vol] 1.2 10*3/uL Normal 1.0-3.5 [facility] Comment on above: Performed By: #### C BCA, BMP ####[facility] ([id number])5200 [place] [address] Lymphocytes/100 WBC (Bld) 19.2 % Normal [facility] Comment on above: Performed By: #### C LUCIA, BMP ####[facility] ([id number])5200 [place] [address] MCH (RBC) [Entitic mass] 31.6 pg Normal 27-34 [facility] Comment on above: Performed By: #### C LUCIA, BMP ####[facility] ([id number])5200 [place] [address] MCHC (RBC) [Mass/Vol] 35.0 g/dL Normal 32-36 [facility] Comment on above: Performed By: #### C LUCIA, BMP ####[facility] ([id number])5200 [facility] [place] [address] MCV (RBC) [Entitic vol] 90 fL Normal 80-100 [facility] Comment on above: Performed By: #### C LUCIA, BMP ####[facility] ([id number])5200 [facility]OW[facility] [place] [address] Monocytes (Bld) [#/Vol] 0.5 10*3/uL Normal 0-0.9 [facility] Comment on above: Performed By: #### C LUCIA, BMP ####[facility] ([id number])5200 [facility] [place] [address] Monocytes/100 WBC (Bld) 8.4 % Normal [facility] Comment on above: Performed By: #### C BCA, BMP ####[facility] ([id number])5200 [facility] [place] [address] Neutrophils/100 WBC (Bld) 65.2 % Normal [facility] Comment on above: Performed By: #### C BCA, BMP ####[facility] ([id number])5200 [place] [address] Platelet mean volume (Bld) [Entitic vol] 6.8 fL Low 7-12 [facility] Comment on above: Performed By: #### C BCA, BMP ####[facility] ([id number])5200 [facility] [place] [address] Platelets (Bld) [#/Vol] 294 10*3/uL Normal 150-450 [facility] Comment on above: Performed By: #### C BCA, BMP ####[facility] ([id number])5200 [place] [address] RBC COUNT 2.80 X10E12/L Low 3.80-5.20 [facility] Comment on above: Performed By: #### C BCA, BMP ####[facility] ([id number])5200 [place] [address] WBC (Bld) [#/Vol] 6.5 10*3/uL Normal 4.0-11.0 [facility] Comment on above: Performed By: #### C BCA, BMP ####[facility] ([id number])5200 [place] [address] CK [Catalytic activity/Vol]o n 11-28-2023 CPK 45 U/L Normal 24-170 [facility] Comment on above: Performed By: #### 2 157-6 ####[facility] ([id number])5200 [place] [address] AFB CULTURE(CONCENTRATED)on 11-27-2023 Mycobacterium sp identified Org specific cx Nom (Unsp spec) SPECIMEN NOTES SPECIMEN A AFB SMEAR NO ACID FAST BACILLI (CONCENTRATED SMEAR) 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, [address] [place] [address] ANAEROBE CULTUREon Bacteria identified Anaer cx Nom (Unsp spec) SPECIMEN NOTES SPECIMEN A CULTURE RESULTS NO GROWTH 5 DAYS Normal [facility] Comment on above: Performed By: #### 6 35-3 ####[facility] ([id number])[address] 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 Normal [facility] Comment on above: Performed By: #### 5 97-5 ####[facility] ([id number])[address] [facility], [address] [place] [address] BASIC METABOLIC PANLon 11-26 Anion gap [Moles/Vol] 5 mmol/L Normal 5-15 [facility] Comment on above: Performed By: #### C BC, DIFFA, BMP ####[facility] ([id number])5200 [place] [address] Calcium [Mass/Vol] 9.5 mg/dL Normal 8.5-10.5 [facility] Comment on above: Performed By: #### C BC, DIFFA, BMP ####[facility] ([id number])5200 [facility] [place] [address] Chloride [Moles/Vol] 105 mmol/L Normal 98-109 [facility] Comment on above: Performed By: #### C BC, DIFFA, BMP ####[facility] ([id number])5200 [place] [address] CO2 [Moles/Vol] 30 mmol/L Normal 22-32 [facility] Comment on above: Performed By: #### C BC, DIFFA, BMP ####[facility] ([id number])5200 [facility] [place] [address] Creatinine [Mass/Vol] 0.71 mg/dL Normal 0.40-1.00 [facility] Comment on above: Result Comment: METH OD TRACEABLE TO IDMS STANDARD Performed By: #### C BC, DIFFA, BMP ####[facility] ([id number])5200 [facility] [place] [address] eGFR (CKD-EPI) NON-RACE DEPENDENT >90 Normal >59 [facility] Comment on above: Result Comment: Reported eGFR is based on the CKD-EPI 2020 equation that does not use a race coefficient. Performed By: #### C BC DIFFA, BMP ####[facility] ([id number])5200 [facility] [place] [address] Glucose [Mass/Vol] 101 mg/dL High 65-99 [facility] Comment on above: Performed By: #### C BC DIFFA, BMP ####[facility] ([id number])5200 [place] [address] Potassium [Moles/Vol] 3.8 mmol/L Normal 3.5-5.0 [facility] Comment on above: Performed By: #### C BC DIFFA, BMP ####[facility] ([id number])5200 [place] [address] Sodium [Moles/Vol] 140 mmol/L Normal 134-146 [facility] Comment on above: Performed By: #### C BC DIFFA, BMP ####[facility] ([id number])5200 [place] [address] Urea nitrogen [Mass/Vol] 16 mg/dL Normal 5-23 [facility] Comment on above: Performed By: #### C BC DIFFA, BMP ####[facility] ([id number])5200 [place] [address] COMPLETE BLOOD COUNTon 11-26 Erythrocyte distribution width (RBC) [Ratio] 13.6 % Normal 11.5-15.0 [facility] Comment on above: Performed By: #### C BC DIFFA, BMP ####[facility] ([id number])5200 [place] [address] Hematocrit (Bld) [Volume fraction] 24.9 % Low 35-47 [facility] Comment on above: Performed By: #### C BC DIFFA, BMP ####[facility] ([id number])5200 [facility] [place] [address] Hemoglobin (Bld) [Mass/Vol] 8.7 g/dL Low 11.7-15.5 [facility] Comment on above: Performed By: #### C BC, DIFFA, BMP ####[facility] ([id number])5200 [facility] [place] [address] MCH (RBC) [Entitic mass] 31.5 pg Normal 27-34 [facility] Comment on above: Performed By: #### C BC, DIFFA, BMP ####[facility] ([id number])5200 [facility] [place] [address] MCHC (RBC) [Mass/Vol] 34.7 g/dL Normal 32-36 [facility] Comment on above: Performed By: #### C BC, DIFFA, BMP ####[facility] ([id number])5200 [facility] [place] [address] MCV (RBC) [Entitic vol] 91 fL Normal 80-100 [facility] Comment on above: Performed By: #### C BC, DIFFA, BMP ####[facility] ([id number])5200 [facility] [place] [address] Platelet mean volume (Bld) [Entitic vol] 6.6 fL Low 7-12 [facility] Comment on above: Performed By: #### C BC, DIFFA, BMP ####[facility] ([id number])5200 [facility] [place] [address] Platelets (Bld) [#/Vol] 267 10*3/uL Normal 150-450 [facility] Comment on above: Performed By: #### C BC, DIFFA, BMP ####[facility] ([id number])5200 [facility] [place] [address] RBC COUNT 2.75 X10E12/L Low 3.80-5.20 [facility] Comment on above: Performed By: #### C BC, DIFFA, BMP ####[facility] ([id number])5200 [facility] [place] [address] WBC (Bld) [#/Vol] 6.2 10*3/uL Normal 4.0-11.0 [facility] Comment on above: Performed By: #### C BC, DIFFA, BMP ####[facility] ([id number])5200 [facility] [place] [address] DIFFERENTIALon 11-27-2023 ABSOLUTE BASOPHIL 0.0 X10E9/L Normal 0.0-0.2 [facility] Comment on above: Performed By: #### C BC, DIFFA, BMP ####[facility] ([id number])5200 [place] [address] ABSOLUTE NEUTROPHIL 3.9 X10E9/L Normal 1.5-6.6 [facility] Comment on above: Performed By: #### C BC, DIFFA, BMP ####[facility] ([id number])5200 [facility] [place] [address] Basophils/100 WBC (Bld) 0.5 % Normal [facility] Comment on above: Performed By: #### C BC, DIFFA, BMP ####[facility] ([id number])5200 [place] [address] Eosinophils (Bld) [#/Vol] 0.6 10*3/uL High 0.0-0.4 [facility] Comment on above: Performed By: #### C BC, DIFFA, BMP ####[facility] ([id number])5200 [facility] [place] [address] Eosinophils/100 WBC (Bld) 9.2 % Normal [facility] Comment on above: Performed By: #### C BC, DIFFA, BMP ####[facility] ([id number])5200 [facility] [place] [address] Lymphocytes (Bld) [#/Vol] 1.1 10*3/uL Normal 1.0-3.5 [facility] Comment on above: Performed By: #### C BC, DIFFA, BMP ####[facility] ([id number])5200 [place] [address] Lymphocytes/100 WBC (Bld) 17.3 % Normal [facility] Comment on above: Performed By: #### C BC, DIFFA, BMP ####[facility] ([id number])5200 [place] [address] Monocytes (Bld) [#/Vol] 0.6 10*3/uL Normal 0-0.9 [facility] Comment on above: Performed By: #### C BC, DIFFA, BMP ####[facility] ([id number])5200 [place] [address] Monocytes/100 WBC (Bld) 9.7 % Normal [facility] Comment on above: Performed By: #### C BC, DIFFA, BMP ####[facility] ([id number])5200 [place] [address] Neutrophils/100 WBC (Bld) 63.3 % Normal [facility] Comment on above: Performed By: #### C BC, DIFFA, BMP ####[facility] ([id number])5200 [place] [address] FUNGAL CULTUREon 11-27-2023 Fungus identified Cx Nom (Unsp spec) SPECIMEN NOTES SPECIMEN A FUNGAL SMEAR NO FUNGAL ELEMENTS SEEN ON DIRECT SMEAR CULTURE RESULTS NO FUNGUS ISOLATED AFTER 4 WEEKS Normal [facility] Comment on above: Performed By: #### 5 80-1 ####[facility] ([id number])[address] [address] MRSA PCR NASALon 11-27-2023 MRSA DNA KYLE+probe Ql (Unsp spec) Negative Normal NEG [facility] Comment on above: Performed By: #### 3 5492-8 ####[facility] ([id number])[address] [facility] [address] [address] SEND OUT TESTon 11-27-2023 [facility] Normal [facility] Comment on above: Result Comment: [id number] SPECIMEN LJ SLANT FROM LEFT BREAST ASPIRATE SPECIMEN A Normal [facility] TEST NAME: [facility] APPR O SUSCEPTIBILITY Normal [facility] TEST RESULT See separate report. View in OnBase or in EPIC. Normal [facility] BASIC METABOLIC PANLon 11-25 Anion gap [Moles/Vol] 8 mmol/L Normal 5-15 [facility] Comment on above: Performed By: #### 3 2132-03, 1987-07, 60421-3, BMP ####[facility] ([id number])5199 [place] [address]#### [id number] ####[facility] ([id number])[address] [place] [address] Calcium [Mass/Vol] 9.5 mg/dL Normal 8.5-10.5 [facility] Comment on above: Performed By: #### 3 2132-03, 1987-07, 66046-6, BMP ####[facility] ([id number])0 [place] [address]#### [id number] ####[facility] ([id number])[address] [place] [address] Chloride [Moles/Vol] 102 mmol/L Normal 98-109 [facility] Comment on above: Performed By: #### 3 2132-03, 1987-07, 60105-0, BMP ####[facility] ([id number])5199 [place] [address]#### [id number] ####[facility] ([id number])[address], [place] [address] CO2 [Moles/Vol] 29 mmol/L Normal 22-32 [facility] Comment on above: Performed By: #### 3 2132-03, 1987-07, , BMP ####[facility] ([id number])5199 [place] [address]#### [id number] ####[facility] ([id number])[address] [address] Creatinine [Mass/Vol] 0.81 mg/dL Normal 0.40-1.00 [facility] Comment on above: Result Comment: METH OD TRACEABLE TO IDMS STANDARD Performed By: #### 3 2132-03, 1987-07, , BMP ####[facility] ([id number])[address] [place] [address]#### [id number] ####[facility] ([id number])[address] [facility], [address] [place] [address] GFR/1.73 sq M.predicted among non-blacks MDRD (S/P/Bld) [Vol rate/Area] 87 mL/min/{1.73_m2} Normal >59 [facility] Comment on above: Result Comment: Reported eGFR is based on the CKD-EPI 2020 equation that does not use a race coefficient. Performed By: #### 3 2132-03, 1987-07, , BMP ####[facility] ([id number])[address] [place] [address]#### [id number] ####[facility] ([id number])[address] [address] Glucose [Mass/Vol] 97 mg/dL Normal 65-99 [facility] Comment on above: Performed By: #### 3 2132-03, 1987-07, , BMP ####[facility] ([id number])[address] [place] [address]#### [id number] ####[facility] ([id number])[address] [facility], [address] [address] Potassium [Moles/Vol] 3.0 mmol/L Low 3.5-5.0 [facility] – [place] Comment on above: Performed By: #### 3 2132-03, 1987-07, , BMP ####[facility] ([id number])5200 [place] [address]#### 43181-5 ####[facility] ([id number])[address] [place] [address], [address] [place] [address] Sodium [Moles/Vol] 139 mmol/L Normal 134-146 [facility] Comment on above: Performed By: #### 3 2132-03, 1987-07, , BMP ####[facility] ([id number])[address] [place] [address]#### [id number] ####[facility] ([id number])[address] [place] [address] Urea nitrogen [Mass/Vol] 19 mg/dL Normal 5-23 [facility] Comment on above: Performed By: #### 3 2132-03, 1987-07, , BMP ####[facility] ([id number])[address] [place] [address]#### [id number] ####[facility] ([id number])[address] [place] [address] BLOOD CULTUREon 11-26-2023 Bacteria identified Aer cx Nom (Bld) CULTURE RESULTS NO GROWTH 5 DAYS Normal [facility] CRP [Mass/Vol]on 11-26-2023 C REACTIVE PROTEIN 2.6 mg/dL High 0.000-0.7 4 4 [facility] Comment on above: Performed By: #### 3 2132-03, 1987-07, , BMP ####[facility] ([id number])5200 [place] [address]#### 40138-0 ####[facility] ([id number])[address], [address] [place] [address] ESR Photometric method (Bld) [Velocity]on 11-26-2023 ESR, ERYTHROCYTE SEDIMENTATION RATE 30 mm/h Normal 0-30 [facility] Comment on above: Performed By: #### 3 2132-03, 1987-07, , BMP ####[facility] ([id number])520 [place] [address]#### [id number] ####[facility] ([id number])[address], [address] [place] [address] Lactate (P tayla) [Moles/Vol]o n 11-26-2023 LACTATE W/REFLEX 0.7 mmol/L Normal 0.4-2.0 [facility] Comment on above: Result Comment: Result did not trigger repeat Lactate, re-order if needed. Performed By: #### 3 2132-03, 1987-07, , BMP ####[facility] ([id number])[address] [place] [address]#### [id number] ####[facility] ([id number])[address], [address] [place] [address] Procalcitonin IA [Mass/Vol]o n 11-26-2023 PROCALCITONIN <0.05 Normal <0.05 [facility] Comment on above: Result Comment: NOTE <0.50 ng/mL - Low risk of severe sepsis and/or septic shock. <2.00 ng/mL - Recommend retesting within 6-24 hours. >2.00 ng/mL - High risk of sepsis and/or septic shock. Performed By: #### 3 2132-03, 1987-07, , BMP ####[facility] ([id number])[address] [place] [address]#### 33510-2 ####[facility] ([id number])[address], [address], [place] [address] ASPIRATE CULTUREon 4 Bacteria identified Aer cx Nom (Asp) GRAM STAIN >25 WHITE BLOOD CELLS/LPF 0 SQUAMOUS EPITHELIAL CELLS/LPF NO ORGANISMS SEEN CULTURE RESULTS FEW Mycobacterium Abscessus REPORT UPDATED GROWTH OBSERVED AT 3RD DAY FOR SUSCEPTIBILITY, SEE PREVIOUS REPORT. Normal [facility] Comment on above: Performed By: #### 5 97-5 ####[facility] ([id number])[address], [address] [place] [address] BASIC METABOLIC PANLon 10-28 Anion gap [Moles/Vol] 8 mmol/L Normal 5-15 [facility] [place] Comment on above: Performed By: #### B ADARSH, CBC #### [facility] ([id number]) [address] [place] [address] #### [id number] #### [facility] ([id number]) [address], [address] [place] [address] Calcium [Mass/Vol] 8.5 mg/dL Normal 8.5-10.5 [facility] Comment on above: Performed By: #### Willis ALTAMIRANO, CBC #### [facility] ([id number]) [address] [place] [address] #### [phone] #### [facility] ([id number]) [address], [address] [place] [address] Chloride [Moles/Vol] 105 mmol/L Normal 98-109 [facility] Comment on above: Performed By: #### Willis MP, CBC #### [facility] ([id number]) [address] [place] [address] #### [phone] #### [facility] ([id number]) [address], [address] [place] [address] CO2 [Moles/Vol] 27 mmol/L Normal 22-32 [facility] Comment on above: Performed By: #### B ADARSH, CBC #### [facility] ([id number]) [address] [place] [address] #### [phone] #### [facility] ([id number]) [address], [address] [place] [address] Creatinine [Mass/Vol] 0.91 mg/dL Normal 0.40-1.00 [facility] [place] Comment on above: Result Comment: METH OD TRACEABLE TO IDMS STANDARD Performed By: #### B ADARSH, CBC #### [facility] ([id number]) [address] [place] [address] #### [phone] #### [facility] ([id number]) [address], [address] [place] [address] GFR/1.73 sq M.predicted among non-blacks MDRD (S/P/Bld) [Vol rate/Area] 75 mL/min/{1.73_m2} Normal >59 [facility] Comment on above: Result Comment: Reported eGFR is based on the CKD-EPI 2020 equation that does not use a race coefficient. Performed By: #### Willis ALTAMIRANO, CBC #### [facility] ([id number]) [address] [place] [address] #### [phone] #### [facility] ([id number]) [address], [address] [place] [address] Glucose [Mass/Vol] 128 mg/dL High 65-99 [facility] Comment on above: Performed By: #### Willis ALTAMIRANO, CBC #### [facility] ([id number]) [address] [place] [address] #### [phone] #### [facility] ([id number]) [address], [address] [place] [address] Potassium [Moles/Vol] 3.2 mmol/L Low 3.5-5.0 [facility] [place] Comment on above: Performed By: #### B MP, CBC #### [facility] ([id number]) [address] [place] [address] #### [phone] #### [facility] ([id number]) [address], [address] [place] [address] Sodium [Moles/Vol] 140 mmol/L Normal 134-146 [facility] Comment on above: Performed By: #### B MP, CBC #### [facility] ([id number]) [address] [place] [address] 02421 #### [phone] #### [facility] ([id number]) [address], [address] [place] [address] Urea nitrogen [Mass/Vol] 22 mg/dL Normal 5-23 [facility] Comment on above: Performed By: #### B MP, CBC #### [facility] ([id number]) [address] [place] [address]376 #### [phone] #### [facility] ([id number]) [address], [address] [address] COMPLETE BLOOD COUNTon 10-28 Erythrocyte distribution width (RBC) [Ratio] 15.0 % Normal 11.5-15.0 [facility] Comment on above: Performed By: #### B MP, CBC #### [facility] ([id number]) [address] [place] [address] #### [phone] #### [facility] ([id number]) [address] [address] Hematocrit (Bld) [Volume fraction] 21.9 % Low 35-47 [facility] Comment on above: Performed By: #### B MP, CBC #### [facility] ([id number]) [address] [place] [address] 49251 #### 6793-4 #### [facility] ([id number]) [address], [address] [place] [address] Hemoglobin (Bld) [Mass/Vol] 7.7 g/dL Low 11.7-15.5 [facility] Comment on above: Performed By: #### Willis MP, CBC #### [facility] ([id number]) [address] [place] [address]149 #### [phone] #### [facility] ([id number]) [address] [facility], [address] [place] [address] MCH (RBC) [Entitic mass] 34.2 pg High 27-34 [facility] Comment on above: Performed By: #### Willis MP, CBC #### [facility] ([id number]) [address] [place] [address] #### 6793-4 #### [facility] ([id number]) [address], [address] [place] [address] MCHC (RBC) [Mass/Vol] 35.0 g/dL Normal 32-36 Pro [facility] Comment on above: Performed By: #### Willis MP, CBC #### [facility] ([id number]) [address] [place] [address] #### 6793-4 #### [facility] ([id number]) [address], [address] [place] [address] MCV (RBC) [Entitic vol] 98 fL Normal 80-100 P [facility] Comment on above: Performed By: #### Willis MP, CBC #### [facility] ([id number]) [address] [place] [address] #### 6793-4 #### [facility] ([id number]) [address] [facility], [address] [place] [address] Platelet mean volume (Bld) [Entitic vol] 7.5 fL Normal 7-12 [facility] Comment on above: Performed By: #### B MP, CBC #### [facility] ([id number]) [address] [place] [address] #### [phone] #### [facility] ([id number]) [address], [address] [place] [address] Platelets (Bld) [#/Vol] 220 10*3/uL Normal 150-450 [facility] Comment on above: Performed By: #### B MP, CBC #### [facility] ([id number]) [address] [place] [address]95 #### [phone] #### [facility] ([id number]) [address], [address] [place] [address] RBC COUNT 2.24 X10E12/L Low 3.80-5.20 [facility] Comment on above: Performed By: #### B MP, CBC #### [facility] ([id number]) [address] [place] [address] #### 6793-4 #### [facility] ([id number]) [address], [address] [place] [address] WBC (Bld) [#/Vol] 9.0 10*3/uL Normal 4.0-11.0 [facility] Comment on above: Performed By: #### B MP, CBC #### [facility] ([id number]) [address] [place] [address] #### [phone] #### [facility] ([id number]) [address], [address] [address] Prealbumin IA [Mass/Vol]on 0 10-29-2023 Prealbumin [Mass/Vol] 19 mg/dL Normal 18-45 [facility] [place] Comment on above: Performed By: #### B MP, CBC #### [facility] ([id number]) [address] [place] [address] #### 6793-4 #### [facility] ([id number]) [address] [place] [address], [address] [place] [address] MAMM SPECIMEN FILMS RTon MAMM SPECIMEN FILMS RT MAMM SPECIMEN MISSAEL MS RT IKE FLANNERY 1970 [id number] MAMM SPECIMEN FILMS RT, 10/28/2023 7:53 AM CLINICAL INDICATIONS: Faxitron, intraoperative specimen radiograph COMPARISON: 09/04/2023 FINDINGS: Digital radiograph of the specimen submitted and interpreted on a dedicated mammography workstation. IMPRESSION: Submitted radiograph demonstrates the Hydromark T5 clip and Magseed within the excised tissue. Finalized by Rosemary Gasca MD on 10/28/2023 1:58 PM Normal [facility] POTASSIUMon 10-28-2023 Potassium [Moles/Vol] 4.0 mmol/L Normal 3.5-5.0 [facility] [place] Comment on above: Result Comment: SPEC IMEN HEMOLYZED, RESULTS INCREASED MARKEDLY HEMOLYZED Performed By: #### 2 823-3 #### [facility] ([id number]) [address] [place] [address] Surgical Pathologyon 024 Surgical Pathology Normal [facility] Comment on above: Result Comment: [facility] [address] [place] [address] Surgical Pathology Consultation Patient Name:IKE FLANNERY:1970 (Age: 53)Gender:FTaken:4Reported:11/10/2023hysician(s):Roxann He MD ([phone])Copy To:Jhon Rosado, [facility] Centeression #:[id number]. Rec. #:[id number]: #[id number] Final Pathologic Diagnosis 1. Left breast, mastectomy: [...] and Drug Administration (FDA) cleared (test/vendor): Confirm/ [place], Primary Antibody: SP1 Progesterone Receptor: FDA cleared (test/vendor): Confirm/ [place], Primary Antibody: 1E2 HER2: FDA approved (test/vendor): Pathway/ [place], Primary Antibody: 4B5 Detection System (ER, PgR and/or HER2): [place] ultraView [place] DAB Detection Kit (indirect biotin-free detection) Scoring [...] findings on echocardiography and lower extremity edema. [facility] NURSNOTEon 10-27-2023 NURSNOTE RN educated pt on d/ c instructions. RN encouraged pt to voice any questions or concerns. Pt verbalizes no questions or concerns at this time. Pt walked off of unit with all of belongings. [facility] 36on 10-23-2023 36 Per Raj in the [facility], this patient is scheduled for double mastectomy on 10/27. She wants to know if the RHC is that urgent or can it wait until after her surgery? Also, I'm assuming someone may be asking for clearance for this. Are you able to clear her or not until the heart cath? Please advise. Normal [facility] MAMM POST BX DIAG UNI RTon 0 10-16-2023 MAMM POST BX DIAG UNI RT MAMM POST BX DI AG UNI RT IKE FLANNERY 1970 [id number], [id number] EXAM: MAMM POST BX DIAG UNI RT, [...] MD on 10/16/2023 2:32 PM 2000 Normal [facility] US LOC BRST US GUID INIT RTo n 10-16-2023 US LOC BRST US GUID INIT RT US LOC BRST US GUID INIT RT IKE FLANNERY 1970 [id number], [id number] EXAM: MAMM POST BX DIAG UNI RT, [...] MD on 10/16/2023 2:32 PM 2000 Normal [facility] Orders Onlyon 10-08-2023 Orders Only [id number] Ike Flannery Yumi 1970 F Date Provider Department Center 10/08/2023 MIGUEL CARLSON CAMERON [place] [facility] Family History Adopted: Yes Problem Relation Age of Onset Heart attack Father Family Status - Relation Status Age at Father Normal [facility] MR BREAST BILAT W WO CONT W [...] image and subtraction processing were performed using Lemko software. The images were interpreted using image [...] 1:55 PM 6 F/U REFER DR Astorga [facility] Office Visiton 08-31-2023 Follow-up visit [id number] AlconchenIke A 1970 F Date Provider Department Center 08/31/2023 Will-CLINT BAZAN CAMERON [place] Family History Adopted: Yes Problem Relation Age of Onset Heart attack Father Family Status - Relation Status Age at Father Level of Service:47982 [place] OFFICE/OUTPATIENT NEW MODERATE MDM 45 MINUTES Normal [facility] Ambulatory Visit Summaryon 0 06-04-2023 Ambulatory Visit Summary IKE FLANNERY :1970 Visit Date:06/04/2023 Ambulatory Visit Instructions Your Care Team Attending Physician - Sandrita WILLETT MD Primary Care Physician - RANDY [...] for choosing us for your care. Normal [facility] General Surgery Office/Clini c Noteon 06-04-2023 General Surgery Office/Clinic Note Chief Complaint post operative follow up HPI Staff 22 day post operative follow up post port insertion. Denies discomfort. no use of pain medication. Denies bleeding or drainage. Port has been accessed three times without incident. History of Present Illness s/p left subclavian dqnvjh-r-bcdj insertion 3 weeks ago; doing well, mild [...] influenza virus vaccine, inactivated 12/29/2012 Recorded Normal [facility] Comment on above: Result Comment: Elec tronically Signed By: BRENNON JAMESON, Sandrita Mays\Date and Time Signed: 06/04/23 09:37 EDT Cytology Cervical or vaginal smear or scraping studyon 06-01-2023 [facility] Operative Reporton Operative Report [id number]#1 .00TIFF Normal [facility] RAD - MISCon 05-14-2023 RAD - MIS [id number]#1 .00TIFF Normal [facility] RAD - MISC [id number]#1 .00TIFF Normal [facility] RAD - MISC [id number]#1 .00TIFF Normal [facility] ECG 12-Leadon 05-11-2023 ECG 12-Lead [id number]#1 .00TIFF Normal [facility] MR Breast - bilateral WO and W contrast Ashwin 05-08-2023 MR BREAST BILAT W WO CONT W CAD BREAST MRI OF BOTH BREASTS- WITH CAD: 05/08/2023 CLINICAL: Preoperative Staging, Right breast cancer abnormal right axillary, internal mammary and subpectoral lymph nodes on recent PET /CT (done at [facility]) PET report also described other foci of increased uptake in the subareolar right breast consistent with other foci of carcinoma images are NOT available for comparison and no size of these foci of uptake was provided. Comparison is made to exams dated: 03/06/2023 mammogram, 03/20/2023 mammogram, 03/20/2023 ultrasound, 03/26/2023 ultrasound biopsy, 03/20/2023 ultrasound biopsy, and 03/26/2023 mammogram - [facility]. CONTRAST VOLUME ADMINISTERED: 10 mL Gadavist intravenously. CONTRAST DISCARDED: 0 mL Gadavist TECHNICAL: All images are generated with the [employer]'s 1.5T MRI employing 8 channel dedicated breast coils (1mm slice thickness with a .2mm gap). This machine employs a specialized trasmit-receive coil. Three-dimensional, high resolution fat suppressed T1 weighted images were obtained prior to, immediately following, and after a delay relative to gadolinium contrast administration. A precontrast T2 weighted image was also acquired. 3D image and subtraction processing was performed using Lemko software. The images were interpreted using image [...] nodes on recent PET /CT (done at [facility]) PET report also described other foci of increased uptake in the subareolar right breast consistent with other foci of carcinoma images are NOT available for comparison and no size of these foci of uptake was provided. Comparison is made to exams dated: 03/06/2023 mammogram, 03/20/2023 mammogram, 03/20/2023 ultrasound, 03/26/2023 ultrasound biopsy, 03/20/2023 ultrasound biopsy, and 03/26/2023 mammogram - [facility]. CONTRAST VOLUME ADMINISTERED: 10 mL Gadavist intravenously. CONTRAST DISCARDED: 0 mL [employer] TECHNICAL: All images are generated with the [employer]'s 1.5T MRI employing 8 channel dedicated breast coils (1mm slice thickness with a .2mm gap). This machine employs a specialized trasmit-receive coil. Three-dimensional, high resolution fat suppressed T1 weighted images were obtained prior to, immediately following, and after a delay relative to gadolinium contrast administration. A precontrast T2 weighted image was also acquired. 3D image and subtraction processing was performed using Lemko software. The images were interpreted using image [...] MRI BI-RADS: 6: Known Biopsy Proven [facility] (narrative) [employer] MR Breast - bilateral WO and W contrast IVOrdered By: Rosemary Gasca on 05-08-2023 [facility] Work Phone: Surgical Pathologyon 024 Surgical Pathology Normal [facility] Comment on above: Result Comment: [facility] [employer] [facility] [address] [place] [address] Surgical Pathology Consultation ADDENDUM [place] Patient Name:IKE FLANNERY:1970 (Age: 52)Gender:FTaken:05/08/2023eported:05/11/2023hysician(s):Mesha He MD ([phone])Copy To:MD Latesha MosquedaorHuntsman Mental Health InstitutelaAccession #:[id number]. Rec. #:[id number]: #[id number] Final Pathologic Diagnosis Right axilla lymph node, ultrasound-guided needle core biopsy: METASTATIC MAMMARY CARCINOMA. Note: ER, [place] and HER2 studies are pending Report Electronically Signed Out ssi/05/11/2023Abhilash Marquez M.D. Addendum (PHS) Date Reported: 05/12/2023 [...] and Drug Administration (FDA) cleared (test/vendor): Confirm/ [place], Primary Antibody: SP1 Progesterone Receptor: FDA cleared (test/vendor): Confirm/ [place], Primary Antibody: 1E2 HER2: FDA approved (test/vendor): Pathway/ [place], Primary Antibody: 4B5 Detection System (ER, PgR and/or HER2): [place] ultraView [place] DAB Detection Kit (indirect biotin-free detection) Scoring [...] and Progesterone receptor Testing in Breast Cancer; [place] Society of Clinical Oncology/College of [place] Pathologists Guideline Update. Arch Pathol Lab Med. doi:10.5858/arpa.1597-0957-HU. 2. Bacilio SIEGEL, Humberto TAVARES, Micaela SOTO, et al. Human Epidermal Growth Factor Receptor 2 Testing in Breast Cancer; [place] Society of Clinical Oncology/College of [place] Pathologist Clinical Practice Guideline Focused Update. Arch Pathol Lab Med. doi: 10.5858/arpa.5332-2364-NA. Electronically Signed Out Abhilash Marquez M.D. Interpretation performed at [facility], [address] [place] [address], License number: [id number]. Clinical History Description: Right axilla tissue. Biopsy procedure: ultrasound; Target: lymph node; Laterality: right axilla; Location: right axilla; BI-RAD: 5; Suspect: lymph node mets. Gross Description Received in formalin labeled ROBERT, right axilla tissue are 5 pale buckley to yellow-mahmood fibrofatty needle core biopsy segments, ranging from 1 cm to 2.2 cm. The cores are submitted in cassettes A-B. Fixation Time: Tissue removed from patient: 1322 Time specimen placed in formalin: 1326 Cold ischemic time: 4 minutes Total fixation time: 31 hours (2,ns,F25-71786, m6) MD. mendoza/05/08/2023EAK Specimen(s) Received Right axilla Fee Codes(s): 1; 55125, 50384-[place], 79719-QF, 26207 Insurance Correspondenceon 0 05-04-2023 Insurance Correspondence [id number]#1 .00TIFF Normal [facility] CHEMISTRYOrdered By: SYSTEM SYSTEM on 04-06-2023 Anion [...] mg/mg Normal 10 - 20 Remisol Chem CHEMISTRYOrdered By: SYSTEM SYSTEM on 03-20-2023 Anion [...] Scoringon 023 CT Cardiac Scoring Normal [facility] 250 DO Work Phone: Office Visit (Cardiology)on 09-29-2022 Follow-up visit Diagnoses/Problems Assessed Hypertension (401.9) (I10) Edema (782.3) (R60.9) Class 1 obesity with body mass index (BMI) of 31.0 to 31.9 in adult (278.00,V85.31) (E66.9,Z68.31) Orders Class 1 obesity with body mass index (BMI) of 31.0 to 31.9 in adult Healthy Weight Tips; Status:Complete; Done: [id number] Edema, Hypertension Basic Metabolic Panel; Status:Active; Requested for:[id number]; CT Cardiac Scoring; Status:Active; Requested for:[id number]; Patient taking Metformin or Derivatives? : No [...] and no PND. Vitals Vital Signs Recorded: 63Fjx1089 02:29PM Heart Rate76, L Radial Tmldwspj134, LUE, Sitting Wnueuxmlk54, LUE, Sitting Height5 ft 11 in Iydmxa247 lb BMI Novjxlgsqk74.52 kg/m2 BSA Calculated2.22 Tobacco Useb) No PHQ-2 #1. Over the last 2 weeks have you felt down, depressed or hopeless? (If yes, answer PHQ-9 below)No PHQ-2 #2. Over the last 2 weeks have you felt little inter (more content not included)... Normal [employer] Tobacco Screening.on 023 Adult depression screening assessment No [facility]codesy 250 DO Work Phone: Fall risk assessment c) Not medically indicated [facility]-codesy 250 DO Work Phone: Tobacco use status CP b) No [facility] MiTú-codesy 250 DO Work Phone: Tobacco Screening.on 023 Tobacco use status CPHS b) No [facility] MiTú-codesy 250 DO Work Phone: CHEMISTRYOrdered By: SYSTEM SYSTEM on 08-15-2022 Anion gap [Moles/Vol] 10 mmol/L Normal 6 - 16 mEq/L [facility] Calcium [Mass/Vol] 9.7 mg/dL Normal 8.9 - 11. 1 mg/dL [facility] Chloride [Moles/Vol] 102 mmol/L Normal 101 - 1 11 mmol/L [facility] Creatinine [Mass/Vol] 0.7 mg/dL Normal 0.5 - 1.3 mg/dL [facility] [place] GFR/1.73 sq M.predicted among non-blacks MDRD (S/P/Bld) [Vol rate/Area] 105 mL/min/1.73 m2 Normal >=59mL/min /1.73 m2 [facility] [place] Chem S Glucose [Mass/Vol] 92 mg/dL Normal 55 - 199 mg/dL [facility] [place] Remisol Potassium [Moles/Vol] 2.9 mmol/L Low 3.5 - 5.3 mmol/L [facility] [place] Remisol Sodium [Moles/Vol] 138 mmol/L Normal 135 - 145 mmol/L [facility] [place] Remisol Urea nitrogen [Mass/Vol] 15 mg/dL Normal 5 - 21 mg/dL [facility] [place] Remisol Urea nitrogen/Creatinine [Mass ratio] 21 mg/mg High 10 - 20 [facility] [place] Remisol Laboratory - Chemistry and C hemistry - challengeOrdered By: SYSTEM SYSTEM on 08-15-2022 CO2 [Moles/Vol] 29 mmol/L Normal 21-31 [facility] [place] Niko yuliet Laboratory - Chemistry and C hemistry - challengeOrdered By: Sandrita Bettencourt on 08-15-2022 Natriuretic peptide B (Bld) [Mass/Vol] 23 pg/mL Normal 5-80 [facility] [place] HemeManSS No Panel Informationon 08-15 105 {mL/min/1.73_m2} Normal >=59 [facility] Coraid 250 DO Work Phone: Comment on above: Chronic kidney disea se could be indicated at eGFR's of less than 60 mL/min/1.73m2. Kidney failure is indicated at less than 15 mL/min/1.73m2. 10 {mEq/L} Normal 6-16 [facility] [place] 250 DO Work Phone: 102 mmol/L Normal 101-111 [facility] [employer] 250 DO Work Phone: 2.9 mmol/L below low threshold 3.5-5.3 [facility] [employer] 250 DO Work Phone: 138 mmol/L Normal 135-145 [facility] [place] 250 DO Work Phone: 9.7 mg/dL Normal 8.9-11.1 [facility] [employer] DO Work Phone: 21 {No_Units} above high threshold 10-20 [facility] [employer] DO Work Phone: 0.7 mg/dL Normal 0.5-1.3 [facility] [employer] DO Work Phone: 15 mg/dL Normal 5-21 [facility] [employer] DO Work Phone: 92 mg/dL Normal 55-199 [facility] [employer] DO Work Phone: Comment on above: If this glucose resu lt represents a fasting glucose, interpretation should refer to the following reference range: 55-99 mg/dL Pass Normal [facility] [employer] DO Work Phone: Office Visit (Cardiology)on 07-21-2022 [...] a smoker Tobacco Use Screening; Status:Complete; Done: [id number] Tobacco Use Screening; Status:Complete; Done: [id number] Unlinked Stop: Coreg 25 MG Oral Tablet [...] Vital Signs Recorded: 21Jul2022 08:15AMRecorded: 21Jul2022 08:14AM Vxqabsjl899, RUE, Uqyanyv129, LUE, Sitting Ntqkyzalg73, RUE, Ykokujm12, LUE, Sitting Heart Rate59, Apical Height5 ft 11 in Rqkaxp579 lb BMI Cqulsjzoov02.82 kg/m2 BSA Calculated2.2 Tobacco Useb) No PHQ-2 [...] Neck: ne (more content not included)... Normal [employer] Tobacco Screening.on 023 Adult depression screening assessment No [facility] 250 DO Work Phone: Fall risk assessment a) No falls within the last year [facility] MiTú-codesy 250 DO Work Phone: Tobacco use status CPHS b) No M [facility] 250 DO Work Phone: PAP ACOG PANEL 2: 30 to 65on 01-03-2022 . . Normal [facility] Comment on above: Result Comment: Perf ormed at: WB Performed By: #### 4 [id number] #### [facility] [address] [place] [address] Dr. Daniel Mcgregor Age Gdln ACOG Testing 30-[address] [facility] Comment on above: Performed By: #### 4 [id number] #### [facility] [address] [place] [address] Dr. Daniel Mcgregor DIAGNOSIS: Comment Normal [facility] Comment on above: Result Comment: NEGA TIVE FOR INTRAEPITHELIAL LESION OR MALIGNANCY. Performed at: WB Performed By: #### 4 [id number] #### [facility] [address] [place] [address] Dr. Daniel Mcgregor HPV Aptima Negative Normal Negative [facility] Comment on above: Result Comment: This nucleic acid amplification test detects fourteen high-risk HPV types (16,18,31,33,35,39,45,51,52,56,58,59,66,68) without differentiation. Performed at: =G Performed By: #### 4 [id number] #### [facility] [address] [place] [address] Dr. Daniel Mcgregor HPV Genotype Reflex Comment Normal [facility] Comment on above: Result Comment: Crit eria not met, HPV Genotype not performed. Performed at: WB Performed By: #### 4 [id number] #### [facility] [address] [place] [address] Dr. Daniel Mcgregor Methodology: Comment Normal [facility] Comment on above: Result Comment: This liquid based ThinPrep(R) pap test was screened with the use of an image guided system. Performed at: WB Performed By: #### 4 [id number] #### [facility] [address] [place] [address] Dr. Daniel Mcgregor Note: Comment Normal [facility] Comment on above: Result Comment: The Pap smear is a screening test designed to aid in the detection of premalignant and malignant conditions of the uterine cervix. It is not a diagnostic procedure and should not be used as the sole means of detecting cervical cancer. Both false-positive and false-negative reports do occur. . Performed at: WB Performed By: #### 4 [id number] #### [facility] [address] [address] [address] Daniel Mcgregor Performed by: Comment Normal [facility] Comment on above: Result Comment: Roxann Ambriz, Truss Designer (ASCP) Performed at: WB Performed By: #### 4 [id number] #### [facility] [address] [address] [address] Daniel Mcgregor Specimen adequacy: Comment Normal [facility] Comment on above: Result Comment: Sati sfactory for evaluation. No endocervical component is identified. Performed at: WB Performed By: #### 4 [id number] #### [facility] [address] [address] [address] Daniel Mcgregor MG MAMM SCREEN 3D VONNIE CADon 12-13-2021 MG MAMM SCREEN 3D VONNIE CAD Patient: IKE FLANNERY Exam Date: 12/13/2021 : 1970 Gender:F Ordering : DR KAYE MANUEL Admission #: [id number] Family : DR DAYANA BASHIR . Order #: [id number] CLICK HERE TO VIEW EXAM RADIOLOGY REPORT [...] Treatments None Family Cancers None LOCATION: [facility] BREAST COMPOSITION: Heterogeneously dense,which may obscure small [...] MD on 12/13/2021 at 08:39 Normal [facility] COVID Quick Testingon 2021 Result Negative [facility] Other BASIC METABOLIC PANELon - BUN/CREATININE RATIO NOT APPLICABLE Normal 6-22 [facility] Comment on above: Performed By: #### 5 616, 14670, 32895 #### [facility] of [address], [address] [place] [address] Product Manager Medical Device: Heraclio Miller MD Calcium [Mass/Vol] 9.7 mg/dL Normal 8.6-10.4 [facility] Comment on above: Performed By: #### 5 616, 59809, 73359 #### [facility] [place] [address] Product Manager Medical Device: Heraclio Miller MD Chloride [Moles/Vol] 103 mmol/L Normal 98-110 [facility] Comment on above: Performed By: #### 5 616, 51027, 01713 #### [facility] [address], [address] [place] [address] Product Manager Medical Device: Heraclio Miller MD CO2 [Moles/Vol] 30 mmol/L Normal 20-32 [facility] Comment on above: Performed By: #### 5 616, 48344, 73100 #### [facility] [place] [address] Product Manager Medical Device: Heraclio Miller MD Creatinine [Mass/Vol] 0.77 mg/dL Normal 0.50-1.[address] [facility] Comment on above: Performed By: #### 5 616, 72437, 80826 #### [facility] of [place] [address] Product Manager Medical Device: Heraclio Miller MD GFR/1.73 sq M.predicted among non-blacks MDRD (S/P/Bld) [Vol rate/Area] 94 mL/min/{1.73_m2} Normal > OR = 60 [facility] Comment on above: Result Comment: The eGFR is based on the CKD-EPI 2021 equation. To calculate the new eGFR from a previous Creatinine or Cystatin C result, go to https://www.kidney.org/professionals/ kdoqi/gfr%5Fcalculator Performed By: #### 5 616, 27739, 12618 #### [facility] [address], [address] [place] [address] Product Manager Medical Device: Heraclio Miller MD Glucose [Mass/Vol] 91 mg/dL Normal 65-99 [facility] Comment on above: Result Comment: Fasting reference interval Performed By: #### 5 616, 64219, #### [facility] [place] [address] Product Manager Medical Device: Heraclio Miller MD Potassium [Moles/Vol] 3.4 mmol/L Low 3.5-5.3 [facility] Comment on above: Performed By: #### 5 616, , #### [facility] [address], [address] [place] [address] Product Manager Medical Device: Heraclio Miller MD Sodium [Moles/Vol] 140 mmol/L Normal 135-146 [facility] Comment on above: Performed By: #### 5 616, , 66709 #### [facility] [place] [address] Product Manager Medical Device: Heraclio Miller MD Urea nitrogen [Mass/Vol] 11 mg/dL Normal 7-25 [facility] Comment on above: Performed By: #### 5 616, 79812, 00104 #### [facility] [address], [address] [place] [address] Product Manager Medical Device: Heraclio Miller MD IRON, TIBC AND FERRITIN PANE [place] 09-21-2021 % SATURATION 10 % (calc) Low 16-45 [facility] Comment on above: Order Comment: FASTI NG:YES FASTING: YES Performed By: #### 5 616, 61066, #### [facility] [address], [address] [place] [address] Product Manager Medical Device: Heraclio Miller MD Ferritin [Mass/Vol] 11 ng/mL Low 16-232 [facility] Comment on above: Order Comment: FASTI NG:YES FASTING: YES Performed By: #### 5 616, 16161, 32566 #### [facility] [address], [address] [place] [address] Product Manager Medical Device: Heraclio Miller MD IRON BINDING CAPACITY 542 mcg/dL (calc) High 250-450 [facility] Comment on above: Order Comment: FASTI NG:YES FASTING: YES Performed By: #### 5 616, 56171, 14929 #### [facility] [place] [address] Product Manager Medical Device: Heraclio Miller MD IRON, TOTAL 54 mcg/dL Normal 45-160 [facility] Comment on above: Order Comment: FASTI NG:YES FASTING: YES Performed By: #### 5 616, 32753, 22730 #### [facility] [address], [address] [place] [address] Product Manager Medical Device: Heraclio Miller MD TSH W/REFLEX TO FT4on 2021 TSH W/REFLEX TO FT4 3.86 mIU/L Normal [facility] Comment on above: Result Comment: Refe rence Range > or = 20 Years 0.40-4.50 Ranges First trimester 0.26-2.66 Second trimester 0.55-2.73 Third trimester 0.43-2.91 Performed By: #### 5 616, 41739, 22381 #### [facility] [place] [address] Product Manager Medical Device: Heraclio Miller MD Consent Formson 09-09-2021 Consent Forms [id number] [facility] Coding Summaryon 09-03-2021 Coding Summary HTMLBase 64 ScrrkgzcFYp3pFa+PGhlY WQ+CH9LUPNdL46tsBArhH 1VV5vDVO2YIYKSGQPZSR6 OWF9bfTD2RXjfZ4IvznXy IkpnsKLvWZ33YOt6PAY9b XirRMybgF6beJOkO6n1Kh GvLF55jT65FFsbSPDrJnI 3LjZpbjsgbWFy D2qhKtOvrRCmSgv+PHRhY mxlIHdpZHRoPScxMDAlJy YzxRmjXW0nPg7zWHInOMU vbGxhcHNlOiBj i9pnZNVsUBuiAT4daKqeX 3JwvRL7GZUvo0p8Pb71oP I+SQBwBFN9gEhiMSuep96 2VfIvm5lbKIV4 xSIxMFouJYU7G60in9Q6E DOdKUZbAGF1jAI4xH4npQ qrotwyI6CxtHZsWtO5YBY 4lYOmqW6nvTnl tspexH7eYgz+Y51RUR8PN UPFOC8WQrg4K9VkUxdcdV I+HB44IKBpUA67cSCtgID oj2tuaMf2LnHv AIBaLMG1zFvzXFmig5FsU CGbJ50vdSTuc7J4EPLpzB pdmMPbSpIanNJ1wA3sPDg dmvlob7hxovcp Coqlg5hqli95aY56V31rM YosOEJqILT9BBFwFDNzaW mfys0rwI8kId5+XIgqb5b mf7lbmVv1KaVe QORjzbGlgNahXOX3u3YaA b71V1HmoWeel5FoBqi2om 09bYSsq1H6zVW2RHbxKKR knK3jGTkdEnB4 GRWxQoBuaS85qUDvCHqbQ s5vvTzcoVqhHM2gUTEzrh gaCLMprO0nSCNhoRFuzRa iOU9gEFSyjdiq d445YfHiJBP2IDFqfPTtJ 0BnqS6zVpEeLQHmYAZiA2 JlxKYxXBytW402XAplEyF 7LTDkxwPeR3Xu SIBluYsjStH7w2T2Ls8Dg 5DwvmszRJY5SBfeNGU3Ok J0GfLjFaA3S8PiGgp9QNL jvBcrTX6fP6Za MBNqqbtvbyzjvRJ6TSZjZ EZueT86tBZmPBbeHs7uh6 Y6c377QSUuFOQaoQ53Ds6 udDogMTBwdCBU kB6pzsegl5nfhtimKxCrL BXoQZj6CYs8IFRntGtqQv FwDNP0SeZ0MXW1nGEymQ6 gfJdyamhlnI2b Oyc+I05etS9uHYO6TYA6e aloXJEyarUsFU46WY41T4 RyPjwvdGFibGU+PGRpdiB gnSmmLN5yNbKt o3rmb3LyDNguT8JhGYKmJ JtsUxt5LVHnJQK8nDK0rO 5sYCYiBJyxd4M4qSF8V2B ohqPtzj3lf3mf IWIxGZykR96iyOIir9X2B RTjrNV6UQNiuUufYuTaaG 93Oyc+ATDzvRice2ErRhf ew5odv0ktnVb4 CcEaPRXbezIwjGgcGGA9j 8EnDr73U87tZCtcDUCcTK PeSVMqLXQujWutts6zrG0 wIi8+PGNvbCB3 tYV5aM1qTHNvYsZ8WWujN 376QoIhjABoVoejm2rzt6 twuTo4LbEjSXRlrkTbfIj rWSC9j4YcYx71 U91bWOocSUUwAPEoVEGdQ HPjmZaban7pwY2oEk9+PC 9ou9ymbb71bW32iGQ+PHR cVQC0nSefFSwd LTFjxJ5gKRtjIhT3YJBhI sPrbI27mPXuHPcdCb6btC jsbFwaCE5rIHXreekxm29 7WrDfh7obTDAy eGSwLSnkJHQ7W63pk1F1E XSjHOKrXZK4sEV0oC2zmU lnbjogbGVmdDsgdmVydGl aFBhoPDfaU061 IHRvcDsnPlBhdGllbnQgT aYpISs0A3JbDwd6GPXgoQ sqEB9tnVQhQAjkRw4wiAw lyKplVM0vLGLe gldys215UuBmd3cpDDLsk RTjQJdaHZY0M90rh4E9GE QxJRHwGOL9wET9wA9nxIp nbjogbGVmdDsg pcBijOzaBFibFZynX228X HRvcDsnPkJpcnRoIERhdG R1YH60TI78tSRbm2W7mAL 9Z9ApTNCfswpu dgafoWD1ZPCfZPHohS59M f2wwQtuNa5bBSZdPCP4RR OldBIhQ4CzoQ5uEvFbHCS nYJEsI2AzbPMj PStjF022NWicSqU5PONye jAoE8AnNLNdfRcdFdD3c7 R6Pj8HD9F5GL88CI88gMP tu9A9fYJ5A1Zh QGTjkzcaqxxqpGC8OBBtV OLgvI77Wq8nkAbsIk2uUB QhICN3EELodOLwG4AasL5 yOiAjMDAwMDAw J9AdpPVnAFxxW606XLioE iI1AGYrcoEpS6LvZJQweB wnVtJ8a5N0Fb9FHAv2LI8 6DY79oAEry3S3 pVC6P2EuTSOjnoccypnlb QM1UPTbGRUjwZ57Uo1yoI llCi8sLRNlCRJ4FAWkfAT gF1TpwT4hTqOj TIIrHMHrR1RtmNPyDIepS 565KLnhImT0VVTtpjMmV4 MsBPSntSgzLpD3a6C6Hh6 JMTMgTP26ZNV6 bHI4SE64YI25X3KdKimec GFibGU+PHRhYmxlIHdpZH RoPScxMDAlJyBzdHlsZT0 sZa9bVNKaPLFo aPxndKNbGkDaj3snNUSmU PsaIN8eyOiiH8GhbAP3KV Gst5o9Hx60V41zE1VsuME +QKUamNV4zRP4 bQ4kHaQwDhI2VDmzR815Q kFizWFxTtntf0ehd4elzF s1DvX6SDNwboOpgFazTDG 1l6WrDt39S09i IHdpZHRoPSIxNSUiIHZhb Hhwvo7pbJ4zBm9+PGNvbC Q3rMH8nL9wOnTeAwN0QZq aH904XjMgoXCo Ivvzy6yxc2bgpBa7UvOlR WXjebEujZsgYJS9n1DlCx 35S8XgcLgel3BjClq8df4 8cMQmi1M9cYT9 Y4VcCRNjzvpafPIzvJcvL N8tLZSyfyoaSGJaqB8zVU HxE9n1XiOtUgW0OJarA8M grrE8RGGghZUl ZLhxVTS9Z56lz5H5HHUyO GFoATZ5iMX3rR8bxSdvdy ogbGVmdDsgdmVydGljYWw rHAnhF726BPBe eTtoAZGvsF9gBVUgwZHfm SvrIT5hWLSrvmclIcnINW 1BTiwgRUxJWkFCRVRIIEF OTjwvdGQ+PHRk OOL4mPbeQIdqQBTagB0kM GAoT1f0NvTzGkW6QGrjD8 EdZGGutxpcSb34rF6gJnY gOtQ9BDmbD8Rx vfH6ICWwwNDiERjmCRS3L 64rz3Q9BJYeFVNlVVW6zG G7fF7fzDjkmeyroNMezZz gdmVydGljYWwt DEllR572QXVpzTnoWxX6V hDvErY2DlX4W1LlXiz1YN PweQzgAT5xiEOmWVqgEd9 ibWogkQzrKC1u CJDtlezuGDMtsO2oCFUws WLiqMzvTQ7rQTBcjbnvy9 26GfYsSKM2NGLevEFbQ3H ptX8oPqFzNPNe IDXpF1QxcGReFJymC828E BldNgR3KBSpjfHaI3HoNN ZtaFxfQmQ2u0X4Lu34LOF ZZWFyczwvdGQ+ CUQaGEC5lNwtJMfgAAZbi C2aZHNhB7p7BjOuCyR7SL ucX3GnLBZlwkkcIa84eH8 eJiAbOoA8JCgz M4FjaiT9PLQgnSUsVJgtT EO5W63ho8Q8TKKbLZWoBT F8yJB4iL8gjHdohvnwdSC mdDsgdmVydGlj BQzbDQueT330WRTogBcpY kZFTUFMRTwvdGQ+PHRkIH F0cXjfBAwvSCNfbP4eQDG iF3l2IwHtYsY9 MSlpP0MzIFGdonkyYd25z T4lCcDrHvB6DAnvZ4Xysc I2TUGpnXAuMVtpTAG6B88 ha2L2BJByVXVo QRX2qEY9kH6btAgxfehom GVmdDsgdmVydGljYWwtYW vaV780VEXnsJsqBqAmhCQ KxNErUCZ7WJ67 YH00I8VdMvtnnEIukVI+P HRhYmxlIHdpZHRoPScxMD FoHpDitZkgWX4aKp2fJWW yLWNvbGxhcHNl OpWsp7djGTCcHSzcHL6nn ZltY2JogGS4JWOzu9e5Yy 96M00wM7OyaMN+PGNvbCB 9yQV2oY6qSgZb LnN2KRyzK352HmMvbBDfM lkld7rwp0xfaZr4ImRjUQ LlvpEpoXfyQCN2u9CtFd3 3N92uDVnoMTFt XFEbKADzLIBaeUbvor1um G9wIi8+UONxtCR8hSO6zQ 3uYeWbQzD4GPgbH940EnS fdAEqTugjJ54u G3IkuAV+DPWhNoj5VGDop AkzLH5smBFgANduCs7fVJ J0YrFyUuAnSTubP3HsQYP pbmctcmlnaHQ6 WGAaILRzuR52Sy6hwOofT i5qCWYdIBB4ODKixJOjW4 HywV2gFaIyWKTxQBIxY5M yzHJjVPpvA586 IRoaUpT4LWSrjpOnS9YdR ZTbdCjoFoK8v0W5Vp1NfR yprTJiAG1sCdWhAUq2I1W uPco1IAWolKkv YM9mzBNvWOmnOd2lgSdjh JvrJK1dNPJneslwn591Sp Jwv6tfIQNhiSDdJSvvUEW 1T83cj6X6FUZd BCPmCHS6pKB3wG6jbBcpr jogbGVmdDsgdmVydGljYW qeRAzaQ628EGSnbKzhUnK WXhn2I7TnJhb6 MVSigWzsMG9jwRJbDVwrJ m8dtHsluKqtBR2gYCJslw xwm966GiIul5ovGPTpcWO eAJjoMCU4Q91q l4C2CSQcKIWgVOA9mIW2a M5akDzhkomaqGYroJafwm BzyEpzAMggJSyvK443WTV toEedTj4NUqe1 W1ElBdu8FMYvbMkrGE3yx ZMiZWmoEn7wcGlyeFztKT 0fNKWhuefvr707EoDzt8p kIDEwcHQgVGlt DCG1P22dy3J0QBQmNJOyN HY8zWO1pW1xeZzyhbhyzF VmdDsgdmVydGljYWwtYWx jS686YFHrlGvx PlBheWVyOjwvdGQ+PC90c i92F2TbZjsgNru3TAEtDT J7xZB6aT0sZELuFHund3R 3cSD7C6QozlAa ci1 (more content not included)... [facility] Coding Queryon 08-27-2021 Coding Query Documentation [...] Oglesby DO [Transcribed on: 08/27/2021 07:54 EDT] [facility] Consent Formson 08-27-2021 Consent Forms [id number] [facility] Telemetry Stripson Telemetry Strips [id number] [facility] Anesthesia Noteon 08-26-2021 Anesthesia Note Patient: [...] on: 08/26/2021 14:58 EDT] Shanon Cadet MD [facility] Anesthesia Note Patient: IKE FLANNERY Age: [...] = 1 tab(s), PO, Daily Potassium Chloride (Bdy-Gnby-Rme 10) 10 mEq oral tablet, extended release 10 mEq = 1 tab(s), PO, Daily traZODone 50 mg oral tablet 50 mg = 1 tab(s), PO, Once a day (at bedtime) Problem list (past medical history): All Problems Cardiac dysrhythmia / SNOMED CT 8687813127 / Confirmed HTN (hypertension) / SNOMED CT 7481082990 / Confirmed Histories Family History: No family history items have been selected or recorded. Procedure history: Arthroscopy of knee ([id number]) on 01/21/2021 at 50 Years. Comments: 01/21/2021 8:41 Gino Pickering RN right Abdominal hysterectomy ([id number]). Arthroscopy of knee ([id number]). Lipoma ([id number]). Comments: 01/04/2021 11:19 OSKAR - Milana Becker RN excision History of tonsillectomy ([id number]). ACL - Anterior cruciate ligament rupture ([id number]). Comments: 08/12/2021 13:15 Gino Heller RN repair [...] Oriented. Review / Management Laboratory Results Plan [place] [employer]#( A) physical status classification: Class II. Anesthetic Preoperative Plan Anesthesia: General. . Anesthetic plan, risks, benefits, and alternatives discussed with the patient and/or family. Patient verbalized understanding. Informed consent was given. Anesthetic technique: General anesthesia, Patient presented with diastolic HTN; this was also noted on her PST chart. Had a lengthy discussion with her regarding this. 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 Patient has reported no changes and has noted her diastolics have been above 100 for months . We discussed treating her with some labetolol here with the hope of moving forward today with her surgery. We also discussed putting a better buttermaker plan in place regarding her hypertension. Her and her both seemed to express understanding. . [Electronically Signed on: 08/26/2021 13:29 EDT] Shanon Cadet MD [Verified on: 08/26/2021 13:29 EDT] FullShanon nunez MD [facility] Coding Summaryon 08-26-2021 Coding Summary HTMLBase 64 EsuwakubPEx2wVf+PGhlY WQ+LH5CAULxU84rzIRsaP 7XR2zIFG9SHMXAYWPIRI4 HCS8bsJJ7HHuvO4GgvxFs HbamrSZlDK75FWk5ZZF7j PpsYBtdoQ8wgDMiH6z8Yz ZwOV28mI84ITxvPMKcVfZ 3LjZpbjsgbWFy F2wiBkAhvWFrOxe+PHRhY mxlIHdpZHRoPScxMDAlJy AkmTfgFI5rXz5bBTKcVHZ vbGxhcHNlOiBj v4ueYXFsPAsjCP3gzGndP 3DakZB7RZAec9o4Sn61lP I+ISZsETJ8nWdwUSoul97 5HkPeg2htWIL4 wGYpSPhnIYL1W56yt6S9V QIpMJVeSPI2tRT6sV9uhR cyvpjbB8BwmNSwRmK4GQI 5dTIzaZ8mcRzy hupadV3aEwt+O99UKA6SA GGJEX5FFgm0C7IbXztceI I+PE05UOYwPA69gOCosKC sv7oseYd0TeWb MKRuYWG1nGhxNCzsd4LdM CWgX67ujVNso8D2IAKdaB ymhNUkGbPdiTU5mX2tJGe geoytw7klqcgo Qpdro5ksxb84jC71C48aL WlbDNEyQRQ6RYQnPLEezB zlvy9myN4zCo9+NEpos3w kv5snmFq8OsLr TPKoerBnaJwrDWS6l0WfZ v49O2MysEgvv3KjNtb6lo 79gRHpn0A7qHC8JOukGFL pxV6lOVyhMsI7 ENZlJqAniP22oNWqZBcbW u0wsJjukWbmJA3oUHOjwf ntRKIibK6zJEYzyMQesOh dVU6yJTHrtrtw n988OqMgJIW6QRPkqTRqF 5HtzZ1jDiEwNIXkBHCyN6 FgdOAuPHrsP450WFgkKvY 6VYSxkmAbJ3Ig IRZjvWdhYyJ0e3S3Jl1Jp 6SqdgrrHPI2FSuoZBE3Wl P5XcEwSiE8I8GlDps6NOM nbCgcCT7sJ5Yv SQBlrxtatghgjYL0IJPoM MZxoW84yBMsNDuqYh0zr7 N5h756DFKbQXKkeF62Kl7 udDogMTBwdCBU cU7ktlzho0nyyfsoFlMfF YBdCCl9CIv0OKOwaWidDr YfTVR4ZjO1KWN6gOSndR2 ggHpovzopbA4s Oyc+A19nnE4zPZC0QTV6l uwtPAMnjiVnIJ24IG55Y1 RyPjwvdGFibGU+PGRpdiB lzQzsLC2zVzLa v5osb1YtARvwO6QnQCYfA MllHjl4GUMuTXK6dNV6hB 2oGERdZSvtw6I5jJA1J5T vymShdq5tu2ed YJZzRRafY59jbIAef8E8W WCrhON6KLFuuXtiDcTorC 93Oyc+RXWoaBscl4LqNez ra3iia0fduUw8 UlUgPJArmqVmdRkuKVD7y 0DrDz44A91zGDarAQSwVW ZiLEVcVTAvdIuyyu1vzE6 wIi8+PGNvbCB3 gHX4pN0uWJAkYlM7DDiiG 034JcVnnFSkOnebh6xqt4 ikrYs6UsQlORYkmyQagKe dSYH0o3MaQu62 Y42rYWjnRCSaAUEdBTXwA FTzyHrxxh1zlF5kWr3+PC 9co3aedi65qJ24xFE+PHR hFGL5nUfrCZkd NBDseF5cNMnmEuA0XYIfJ iJpqK38oIFqDHxlWv7oiF gsnNjhDU1xOUZccnuox74 1EyKpf3drOZCh oRYsBTckZNS2K01mw6I8V EVyJNLjLUU2gBS4yJ6qaJ lnbjogbGVmdDsgdmVydGl pDJgoTAbcG183 IHRvcDsnPlBhdGllbnQgT qMvRMk5H2RtBfr3MQShrD quQW0foUTgPKjrQl9tzDa xcXwmSG8rNVCw ytzvj839ZbVnt5aaGWDet ECpAThmDBC0E46jc3Z9SK SvPTEgAYS5xKP7pU9myQe nbjogbGVmdDsg trOrnYrwXHtbIUbvC077B HRvcDsnPkJpcnRoIERhdG Q7IX62RN83jJBjw8A9iJY 2X1ToMLSyowvu qiinsII7CGJfOBPkhO60V d4ylHviBb0mQVHdDBX2JI DswQUkX5AaiL8qYoNySFD zWMFiO6PjhPVb FLswF532OFosMgG5HCJcp cIgF9LfWWYwvFzvJjM6i7 S2Ab7IO3I0CV19AJ10eQM xm1L7wXQ1C9Bz QBXpxngedhjalOU0ERNsK DYryI24Sq7luIegRu4sRZ NfIAL5MNJrtSXjC0QbeU9 yOiAjMDAwMDAw J1BvtLInWKppR005XJkvC yH3THPphxPsO1EfGVPrgQ biGjE3m3X3Rj7VKSs3VF3 3DJ37aGGpb2S1 rEK1F1LpFGNzxsxnkgzok YD6JRWdTCSgkL61Yz8syK zxXs3cSUMhEEC3HIRqdKR tL8OokO6mFaPh YBRiOTRhP1QfeNBcXIspB 469LEjmLsB1LDRzaaNhV3 LeHMZyxOniCgQ0j7T9Hs3 OKZMaZH19GAG6 zMG9PW86WM82V3KoRgiai GFibGU+PHRhYmxlIHdpZH RoPScxMDAlJyBzdHlsZT0 xNz2yUAHlETKe cVgnvLByGjYyr6uqNZSgA YxiWB8frUlxW6TeeFQ3MC Hpo6g4Rp64Q21nG4KbwIU +PONxzHC5cVS9 sG8zPwKcFoZ3EUovZ504T qVcyPMcGbcrv0wtx1simR z0MoV4DTAqxkTowFzaMUO 4e7KsLh64H35q IHdpZHRoPSIxNSUiIHZhb Kiyvs6juO6lAl7+PGNvbC Y3uQF7uK3xOeBkFiJ7YEa hC358YnLokXTs Gsbny8gfb5wbhHv7VjDrN OBktnFwbNoyRBE4w9GpFh 92T6ElyUuhc9MmFjq8ku9 2wYTuq6B5sAY9 U6EqGUDkppukwGAvjRmaO L6sFIUkmzsiPYFrrS5bAV UgQ0r4TzRhOkF7PFrmF0E bsaO2KPVkwUGk YBlqIWV6Y37xp9W5AZOeE VMxHUN4iNA0nR1qcVrace ogbGVmdDsgdmVydGljYWw uGVtlV335MJHz iXctPVRklU1yQCFazDKdq UrwTD5xNXMpawjdAgmIQM 1BTiwgRUxJWkFCRVRIIEF OTjwvdGQ+PHRk GTM9aYnjOIccPRVskS7cV PJfS9d0WtHoJxV8YQewZ9 XfYPFdsrhnUl86cL2mBgW vEdG5FGojZ1Te myK3TRMijIIgZJwoCJX3W 59yz3R4URZcKJYgANT5uV C1uL9evBaiyofvoMMpeMe gdmVydGljYWwt RTnfO299GIQxqIbnRzJ1I vYlOqL6IkG1G9YrUki4NJ HwcLzuJO1lkSQeBQljBv4 npJnwcJwmMC1k FEKyxsyuYCCbaB3oNRIkt EUdmHxeZG0uOKXqnleen4 77WfAzEUY8JJYknZLuZ7K mxO2aEpXhVIZl TJNsB4RoxZOmYIeoM056P RjeViT9NWYulfUrK7XdAS LchUuoVbN7l0E4Ok69RZQ ZZWFyczwvdGQ+ AJXdNDW7jLmgFLwfURTzu V6aJPSeU5l1ToIjEbW8KD nsS5UyFMMjadbzCf56qP7 rRdBsNdZ9GWly R9JgpfO0DLElgBPzLSdhC MW2Q14hn7T0YDXxZNCzLA Y0kBI8vG2bnBbbrelneBC mdDsgdmVydGlj WRkeSLmiM899LBFweZqqF kZFTUFMRTwvdGQ+PHRkIH K7uOkpITvlIYLvxD1gRUE qK5j3JcYrJsK8 KZpiC2SwWLSkkbzsIi79l R5kQyZzCwB6SUahP3Uqan O2VMAdvLLhXEwvBSS6Q70 po4B5XBDvYZYl UZR2sYK1xB6luFijxzfvi GVmdDsgdmVydGljYWwtYW moG180AXFpuJqaLe6EFZ0 4YQ74Y7McGgmz dGFibGU+PHRhYmxlIHdpZ HRoPScxMDAlJyBzdHlsZT 9bEh2fTWIkJKQbwUuheXC xEvDfe6baNVVj LMpaJX4tkAtvP7IfbPQ2E VCqv7c3Zz00L25cO4NmkD A+WJHhiLD4wZB8nX5pQgT oFtT8OAakS787 LlEqiKBdNooxt7jro2xmt Rn8QvAjMRMymlRkeXkdLR X3r3WrLt10Q00vYCszDSA oPSIyMCUiIHZh rQfzsm0gmT8hXh8+PGNvb DQ8dPH8vL6pXjDvTtJ4MS mhD119EtWnnWYfNfieX36 sR6SnnRP+PHRy Mzf6SAOxoKnbSR9scTHeZ MuiTh7bUDA4IgMpMvDkEP lsG6ExGPXmwmgnkswpyYP 8VVWcQBFmhS52 Sz8inLzgEx1mOLRaCWX6X VAbjFTqJ2PpgR9aAxKiXG MnYFKxV9DouIVwHFdjQ55 7GZqxWnY9GTIp olNuI1HhKHQrxWiaCwU6k 9M1Db0LhPkqkGZiUI6pWs PgYFx1P4GgZcw4IRGenZp jAU2rbGIaJFmo Hj3azKscvWsgKI9uJDFaz idns825XwVgp5giIBHzoA UcEEetRAW6A04lj5Y0QIN uWBUjFXW5nOO1 tO1lrOnvzxszpQHcuBqmm dFymZwmMEqnJXovA035JN DdmRdzPaRRZvl5A5TfSis 0CESgiOrsHO3b zUBwVJveJy0drQameCpoP G5rOGIdfkfif300WfQoo6 zvSJPuiIRyIGdySHN4T29 op0P2VBHiLCUp MQQ0qIF6qZ3osXyyojtpy GVmdDsgdmVydGljYWwtYW jpK347XWCqdPgaXq1WXlk 5I9QaZpm5PHWf dLvbIN2xoOTjBGygDi6jt FbdgGipCK7zRERgdbxvs1 40ThRja3wrFJNmcFBeDQs nIKC8D02lr6F3 KSOlPKByREY2hSZ3lM6aj GlnbjogbGVmdDsgdmVydG ixKHnaBEwoP972YHKhwLc nPlBheWVyOjwv dGQ+VK70bg62Q7NvMwavR my4XJDbTFD8dIF3wD7wUI PpSNjwg4S7cAR9I1HrtoI ocu8yn5azQEFq ZTo (more content not included)... Normal [facility] Inpatient Patient Summaryon 08-26-2021 [place] [address] Patient Discharge Instructions Name: IKE FLANNERY : 1970 Patient Address: [address] [place] [address] Primary Care Provider: Name: ARNDY CALLE After you are discharged if you find you have any questions, please, call [phone] ext [phone] to speak to a nurse. Discharge Diagnosis: Internal derangement of left knee Prescription Information: If you have been given a prescription for narcotics, seek immediate medical attention if you have any difficulty breathing or any sudden status changes such as confusion and sleepiness. If you or anyone you know is experiencing suicidal thoughts, mental health, alcohol and/or drug addiction problems; contact the [facility] 22/09 Crisis Hotline -Text 4HOPE to [phone]. If you received any narcotics, sedation, or [...] business decisions or sign any legal documents [facility] would like to thank you for allowing [...] Have Not Changed Other Medications acetaminophen-hydroco done (!-[place] 5 mg-325 mg oral tablet) 1 tab(s) Oral Every 6 hours as needed as needed for pain. carvedilol (carvedilol 12.5 mg oral tablet) 1 tab(s) Oral 2 times a day. cyclobenzaprine (cyclobenzaprine 10 mg oral tablet) 1 tab(s) Oral At bedtime as needed for spasm. hydroCHLOROthiazide (hydroCHLOROthiazide 25 mg oral tablet) 1 tab(s) Oral every day. potassium chloride (Potassium Chloride (Exf-Culd-Kcm 10) 10 mEq oral tablet, extended release) [...] you can keep with you. acetaminophen-hydroco done (!-[place] 5 mg-325 mg oral tablet) 1 tab(s) [...] Oral every day. potassium chloride (Potassium Chloride (Sen-Mwak-Dat 10) 10 mEq oral tablet, extended release) [...] flow is (more content not included)... Normal [facility] MAGR Intraoperative Recordon 08-26-2021 MAGR Intraoperative Record MAGR Intra-Op Record Summary Primary Physician: Hua Oglesby DO Finalized Date/Time: 08/26/21 15:08:30 Pt. Name: IKE FLANNERY/Sex: 1970 FEMALE Med Rec #: [id number] Physician: Hua Oglesby DO Financial #: [id number] Pt. Type: D Room/Bed: / Admit/Disch: 08/26/21 [...] Role Performed Surgeon - Primary Anesthesiologist of Staffing Assistant Record Time In 08/26/21 14:02:00 08/26/21 14:02:00 08/26/21 14:02:00 Time Out 08/26/21 14:56:00 08/26/21 14:56:00 08/26/21 14:56:00 Procedure Arthroscopy Knee(Left) Arthroscopy Knee(Left) Arthroscopy Knee(Left) Last Modified By: Jeannine Eid RN, Erica RN Baumer, Erica RN 08/26/21 14:54:01 08/26/21 14:54:01 08/26/21 14:54:01 Entry 4 Entry 5 Entry 6 Case Attendee Dorothy Archer RN STRIP WINDER, Avi Navarrete STRIP WINDER, Shanique BROWN Role Performed Staffing Assistant Acupuncture Physician Scrub Personnel Time In 08/26/21 14:02:00 08/26/21 [...] By Jeannine Eid (more content not included)... [facility] MAGR PACU Recordon MAGR PACU Record MAGR PACU Record Summary Primary Physician: Hua Oglesby DO Finalized Date/Time: 08/26/21 15:37:09 Pt. Name: IKE FLANNERY/Sex: 1970 FEMALE Med Rec #: [id number] Physician: Hua Oglesby DO Financial #: [id number] Pt. Type: D Room/Bed: / Admit/Disch: 08/26/21 11:01:00 - Institution: PACU Case Times MAGR Entry 1 In PACU I 08/26/21 14:56:00 Discharge from PACU 08/26/21 15:30:00 I Last Modified By: Elvira Navarro RN 08/26/21 15:37:04 Finalized By: Elvira Navarro RN Document Signatures Signed By: Elvira Navarro RN 08/26/21 15:37 [facility] MAGR Postoperative Recordon 08-26-2021 MAGR Postoperative Record MAGR Phase II Record Summary Primary Physician: Hua Oglesby DO Finalized Date/Time: 08/26/21 16:25:07 Pt. Name: IKE FLANNERY/Sex: 1970 FEMALE Med Rec #: [id number] Physician: Hua Oglesby DO Financial #: [id number] Pt. Type: D Room/Bed: / Admit/Disch: 08/26/21 [...] Signed By: Elvira Navarro RN 08/26/21 [facility]25 [facility] Preoperative Record MAGR Pre-Op Rec ord Summary Primary Physician: Hua Oglesby DO Finalized Date/Time: 08/26/21 15:18:23 Pt. Name: IKE FLANNERY MIGUEL RosenO.B./Sex: 1970 FEMALE Med Rec #: [id number] Physician: Hua Oglesby DO Financial #: [id number] Pt. Type: D Room/Bed: / Admit/Disch: 08/26/21 [...] By: Elvira Navarro RN 08/26/21 15:18 Normal [facility] Operative Report - Surgeon/P aster 08-26-2021 Operative [...] on: 08/30/2021 13:39 EDT] Hua Oglesby DO [facility] Patient Handouton 08-26-2021 Patient Handout POST [...] be done to rule of a DVT. [facility] Progress Note - Nurseon 08-01 Progress Note - Nurse Pre-op call done, instructed to arrive @ 1100 on 08-26-21, NPO after midnight, and need for ride to and from hospital-verbalized understanding. [Electronically Signed on: 08/23/2021 13:36 EDT] Gino Painter RN [Verified on: 08/23/2021 13:36 EDT] Gino Painter RN [facility] 2019 Novel Coronavirus (CoVI D-19), KYLE LCon 08-22-2021 SARS-CoV-2 (COVID-19) RNA KYLE+probe Ql (Unsp spec) Not detected Invalid Interpretation Code Not Detected [facility] Comment on above: Order Comment: [address] [facility]# [phone] Result Comment: This nucleic acid amplification test was developed and its performance characteristics determined by [email or web address]. Nucleic acid amplification tests include RT- PCR [...] detected) result in this assay. Performed At: [address] [id number] José Manuel Chery PhD Ph:[phone] Performed By: #### 6 [id number] ####[facility] (DEFAULT)[address] [place] [address] Coding Summaryon 08-15-2021 Coding Summary HTMLBase 64 CqklyrmkFFf2rTf+PGhlY WQ+BU9GEPAvC31wwYHkmJ 6OP4eFTB5JQDKHBXDQGX9 NGR1tpES0WBkzS4MfpbKy YubezJKcNQ85RRe6WCT3c QrvNExraO5xwEGzR1n5Wi NmYE12tT34NUufVYHmWhU 3LjZpbjsgbWFy N2toWdKezYAdTta+PHRhY mxlIHdpZHRoPScxMDAlJy NmuPcyWI2wMm2tHCWyRUI vbGxhcHNlOiBj g7oaNIInPIsrFP0qbAriI 7RqlZB6UOKnl9m6Th08qP I+ZGWoRMN5dYdyPNads55 9NxAyg2edAEF7 rPWdXAoeFTU5Y16in0B6B JJqVITtKPF1iGL5qM0sbO dbwrxuK1PoyRTfKuD3WYK 6bPFmcV1vtEdp fsgxzF8vAos+N80NRU9SG REROP1XXju4V4ZaOxmvqG I+QW72SXJsCP69qMSdrTR bp9lvsKa9NpSw PBHvYSJ5pAmaBJlde8AsW CRtP56qwNHii8Q9DXVlhO mlvOMpLkTexZD2zB3bIIr lvtivx4zawhoj Sxfrr1joyc22hE92P45sH UxzBBHrIHX6HYTmKUWbiH qimz0znB5tBz5+ZDkqa4v fq6vveJs7KvDy UNKauqOioKdgAJR3v4DgB i08H1PkkGdtp3CfWgz2az 72sMJzy1Y1nTI7PQhyQMN nuU5dSQxuWrC9 MGLiViBzjQ26zHKwPAbpZ e7aoUvcpVsaJM4uMOHwtu qkTAZxrB2pXIUrvFMmsIh jAA8hSFHcokts l593ZdCeQUI9SSHsrMOjI 7WmzA8cLtDcSIQqRSPqQ4 JymAVcNQduU798IJtiZfC 3ZUWqbqCwK8Fa XVZsoWllPoD3i4Z6Iz8Tq 1XtijknMRX8TFocOKS2Rv P9FbIeXiA1J0MkUxy3EGA fxAwhPE6iC9Li HFTcaodofsbjtJI4FGQcH QDhkV42uMOtJGgyVk7zw3 E8y161PDRdQRVxeC88Zv7 udDogMTBwdCBU vB2rhiuwv9fsionkBzJhC JLaCRj0QMg6KKOafSikQt YpGUV3MaE2KGX3xPZayI1 jcGyrjtixyY6i Oyc+S96rfL1tZOX8HSW6f yfhUAEbkcAkKW16RQ40U6 RyPjwvdGFibGU+PGRpdiB abKcfAR2zJeBk d4nhl6MxZOpiU3ObQDQjT BtmLmj2ITZhNOG8uRX3sA 4zFQPvVAlrz1R9gMB5T1E kbcUppp2pw5kd YXRkBLhdC44jtTSaq2S9W RAraJD1VOCpoFjbWsWmhY 93Oyc+FNMucSbuu7WnPpm vh5zch5tlgTb6 KcMtICYysuCwuVisMVX4u 8TbXe90D58zHWdaHCSdNY ZsUOHvYFPipYfnxm1pgK6 wIi8+PGNvbCB3 qHB8pZ2tNLSnOgO8DEdaA 844VlZreTKpKlfof4kyb6 mlvOv2JcZmEJOpxmWptOg zXNQ8c3WuMh25 D58zEXqlNXKsHMFlFLDhK QQuuHaydw0zqE3qXb7+PC 9ku5vhhi11iF61tKE+PHR lWCJ9oPrvNUul AXOijN4zEJmxYcI2EUWnA lYvyL44bDJqRExbHs6ivU pktAzxZR8jLCOsrizhr36 9ZoXgy5esGEVc nCZpVBxgVFE4F22ul5J3K IYkGMMmUBI6tQT8hX2ilH lnbjogbGVmdDsgdmVydGl cAXmaAKezH564 IHRvcDsnPlBhdGllbnQgT dSpPWa8G3XaNgr0KVXdfL ajSO1duQJeKInwFw1tqXd cbKcoND2xNWRh wewxa175QdSbz6qmFQMit RUoJDgtXIL3F44ax9X4GF HeRKIqJRL7yGK1pF1cbMe nbjogbGVmdDsg yoOinScbARujYAwoI710W HRvcDsnPkJpcnRoIERhdG I4BK61ZN11gMWap0Q6mXZ 2Q6XlARFvhtar wqqxbPM8GYStFPWguX83M x2hoEuaCl8fLYBcZNE5OT VtgWWrA8XthR2mQaDhWDD cHESuW5TodOBc XGfoT352OChrRbZ8MCWib dIaH1IlCCFbvKznHsI1c5 T2Tk9SG7O1PL60OX55jCG xi5V9bTJ3C4Pq TOMtdaakulnahBU3UDXyT WQpaT84Ql7qoQvnOx6iFG KjGMA1RSLivFBlQ9JhtD4 yOiAjMDAwMDAw X5PnaRXhOKuxZ907NSgrV gV8XTGobkGtM4HaTPXibO kwZyV3h9B9Tk7NFBf5FU0 2GX97iKSmf9C3 dWD3W5NrNBBzqvpcpoxec MP0OHJpOXYgmK95Ku6dkF cjDc2mTGSrIFW5USSmkXN qW1QtqP1gQzKk SWZnNTImW2SwoSEdGTggD 739KYztMkY5EDJilcSyW1 OhLNNeqOjbTpR2z6N3Dp9 NHPJpKL01FSY4 fBM1CY20BV67B7PgYkcgp GFibGU+PHRhYmxlIHdpZH RoPScxMDAlJyBzdHlsZT0 lKc4bZBYgTCEx nWvjlGKyQsIvv5uwNXAcT TtfCE9enOyiW7RoeFJ8RX Yad7r2Sa99Q18gQ2LfmIY +PVVpgGG3hVD9 kW4bEuCiMuQ9XZoaC675W zGsdTYuLrkmd0irg6oxcU g5DzX6CKKoikWoxOyqUSU 2k0BwRq63U78a IHdpZHRoPSIxNSUiIHZhb Tlejk5zeA8aLx2+PGNvbC K8mBC2aX0nCnUhJiQ6QGp xE511FiKirUIq Dnyzz8sbf5eyzIf5BsFdP DQumdDcvYkfZAH8j3WxCq 66U5YyzWsfl9MkGal8kw1 4vBIdo8S4eCO6 N9PwFXFyibiviSMtsXhoO U9tYRWugdwrTZIafM6fYX TsX8v8HnNjRuC9ONsnK0W dwvX0EFQqhABp DHiwXWE2A04hf8U2RIPuP QXbTCZ8hWB0nL0fvCndrs ogbGVmdDsgdmVydGljYWw wFNlsA330YZGy cXrzYPPlaO1oKTRxcKBnb JbyEH4oBUYwthcjWztSJC 1BTiwgRUxJWkFCRVRIIEF OTjwvdGQ+PHRk PUH2uZmcFUqoNSZbmE6sU EFlJ2m8EiLbJtJ7PLgyK2 ZdPXCisawxCo68iW7gKhV qKpT4DTnoV4Uw fvS6KHVqqJVrBMntPWB9G 00oz1R6WEGzXKIyCSH6tJ L6oW2vfFqlmwncsNYzsVv gdmVydGljYWwt CGaiE665XOXkfHjrYbK6Q iYkVeZ3MyM2N8HgRwe6LZ RqbJefWF4txFIuXOuaPl2 gxRakvQtrAA2q FSUsltliMHAwbS2dBBItz ZOaaWemKW8fHENvrgtvg8 52WfDrQCJ7BVAfbVLtQ9F zeC9nXkZkGUNw VLQnR4CyqPRfVAaiQ378D GyvDiK6VYAlczBiO2UhVC EnxQkiQoX8w9M1So26KYU ZZWFyczwvdGQ+ AGWcZPG7fNicWKipEBObn K0xVWTaY5g3PkDjRwT9EZ tuN1ZyQDGwrskgZw38rA4 vYvFnEtT4GKlp L8JgbzO8DUOzgFDgNNsgB SO2N70bc2J8FYMkNPYiOM M1wIV2rG0wzRqldkbgsWK mdDsgdmVydGlj WEifCOzaK220MIMywAjhY kZFTUFMRTwvdGQ+PHRkIH X8dKguZMllPMHfmK4hPAG cS5q5OdZvUxL8 RDbmC9AwSDHcqrxvBq18x V9mXuLdQwE2PQnzH5Mgzk E4DIChuAQnYMynHYI2R70 iz0R3UJHhEOWo MAH2rCI7kX1ptBhzfwbte GVmdDsgdmVydGljYWwtYW laH677HOLomFhwLd2MYC9 0IM00P8HeUizz dGFibGU+PHRhYmxlIHdpZ HRoPScxMDAlJyBzdHlsZT 4mGe9pDHTpAZUfoIjdcEH uHbDxp4maGSDd SXgvCM7ixGktD9EvaZF0F PMue9k8Zq98I07xE8XpwI A+DTHyxVM1fLF7bM5jOgE hRzY8SOjxK744 IpYzhBFtQaybv7nmt3gsn So4ZyNbSCRjusNgqWcrYT E4j0WwRx78N41kVChiCTL oPSIyMCUiIHZh hXfygh3pxT6jHi3+PGNvb TG1fHE5oD8nYzGyHvI9AJ xiF844HdJjwUJqEyxnN11 yK0ErcSJ+PHRy Dty4MFOixFwfOA1icSRfQ WbtPo3xLED0YjPwRgHlAJ dyN4KaGQIcilipthowtAX 2RBRpDKGzqH54 Nq2jnVorZi5tJLTjREW6M OMdbPPfP9AnmD2cOwQsIJ LuWLVpL6LtwJLwHOpxU67 9TWwyYcD5UQNf voTrV9HfWTHdgAzcTnH4x 7Q0Qg5ZbQohdKDtYG8dNt BoGMj5G4UrOvl8WJAfaEf aPA3znGVpPTng Xw3soMxpbWvxDA3eSSZis mica153LaUoi0jfIDIoeD PhLTrbVTN0Q87ng1N4DZO ySDYeXQO7yOD8 nG1rtVfxnqvpsTZtfGwuc bKcnKoiEBclUGveZ531WH KpmYlxNxYFHhs4R3LtUrq 6BRJyxOqqQL0i rDXkZLmvRt6ifCseyCbfK H2hOEMjwtsty062PjBiw7 mwHNWaiZEzBEoiTIC1T34 ah6T5ESAhOWTj OBJ0gNR3aR5vqHjjwojgb GVmdDsgdmVydGljYWwtYW muL589SKJonGvgRr6ILgf 0I6LqLuf4AJQz mYzmKA8hzAAjBTvoVj1nk JvsiQydOL6sPWEzulbro4 52RdBmh1aoSWJpdITqECw aGWL5L12ya0Y5 EYYrHTVvRTI9fOD3oA4wt GlnbjogbGVmdDsgdmVydG wlMPyzNSdsX169VBOmuHa nPlBheWVyOjwv dGQ+GL90td49J7KoPolcS wd2JRYwIYE6zTQ7xQ6iXN AnSNxgj6B7bWW9Y7SljjI xjg4mu3maQQHb ZTo (more content not included)... Normal [facility] Inpatient Patient Summaryon 08-15-2021 Inpatient Patient Summary [address] [id number] Patient Discharge Instructions Name: IKE FLANNERY : 1970 Patient Address: [address] [facility] [address] Primary Care Provider: Name: RANDY CALLE After you are discharged if you find you have any questions, please, call [phone] ext [phone] to speak to a nurse. Discharge Diagnosis: Prescription Information: If you have been given a prescription for narcotics, seek immediate medical attention if you have any difficulty breathing or any sudden status changes such as confusion and sleepiness. If you or anyone you know is experiencing suicidal thoughts, mental health, alcohol and/or drug addiction problems; contact the [facility] 22/09 Crisis Hotline -Text 4HOQY to [phone]. If you received any narcotics, sedation, or [...] business decisions or sign any legal documents [facility] would like to thank you for allowing us to assist you with your healthcare needs. The following includes patient education materials and information regarding your injury/illness. ALCONCHEN IKEFOREST RIVERA has been given the following list of follow-up instructions, prescriptions, and patient education materials: Follow-up Instructions With: Address: When: MYESHA VINSON [address] [place] [address], [place] [address] Business (1) 09/03/2021 9:15 AM With: Address: When: RANDY HALLMAGALYS [facility] [place] [address] Business (1) Medications During the course of your visit, your medication list was updated with the most current information. The details of those changes are reflected below: Medications That Were Updated - Follow Below Instructions Other Medications Updated: potassium chloride (Potassium Chloride (Lot-Yuew-Fku 10) 10 mEq oral tablet, extended release) [...] Oral every day. potassium chloride (Potassium Chloride (Xan-Sfua-Mss 10) 10 mEq oral tablet, extended release) [...] for Disease Control and Prevention October 2013 [facility] Patient Handouton 08-15-2021 Patient Handout Normal [facility] Progress Note - Nurseon 07-31 Progress Note - Nurse Dr. Small review s PAT information and testing results. Ok to proceed, no orders given. [Electronically Signed on: 08/14/2021 12:02 EDT] Dary Gallegos RN [Verified on: 08/14/2021 12:02 EDT] Dary Gallegos RN [facility] .Auto Diff 1on 08-12-2021 Auto [place] % 8 % Normal 12 [facility] Comment on above: Performed By: #### 1 [id number], [id number] ####[facility] (DEFAULT)[address] [place] [address] Baso Abs# 0.1 x10 Normal 0.0-0.2 [facility] Comment on above: Performed By: #### 1 [id number], [id number], [id number] ####[facility] (DEFAULT)[address] [place] [address] Basophils/100 WBC (Bld) 0.9 % Normal 0.2-2.0 [facility] Comment on above: Performed By: #### 1 [id number], [id number], [id number] ####[facility] (DEFAULT)[address] [place] [address] Eos Abs# 0.3 x10 Normal 0.0-0.4 [facility] Comment on above: Performed By: #### 1 [id number], [id number], [id number] ####[facility] (DEFAULT)[address] [place] [address] Eosinophils/100 WBC (Bld) 3.9 % Normal 0.9-4.0 [facility] Comment on above: Performed By: #### 1 [id number], [id number], [id number] ####[facility] (DEFAULT)[address] [place] [address] Lymph Abs# 2.6 x10 Normal 1.3-2.9 [facility] Comment on above: Performed By: #### 1 [id number], [id number], [id number] ####[facility] (DEFAULT)[address] [place] [address] Lymphocytes/100 WBC (Bld) 30 % Normal 14-48 [facility] Comment on above: Performed By: #### 1 [id number], [id number], [id number] ####[facility] (DEFAULT)[address] [place] [address] [place] Abs# 0.7 x10 Normal 0.0-0.8 [facility] Comment on above: Performed By: #### 1 [id number], [id number], [id number] ####[facility] (DEFAULT)[address] [place] [address] Neut Abs# 5.0 x10 Normal 1.5-9.2 [facility] Comment on above: Performed By: #### 1 [id number], [id number], [id number] ####[facility] (DEFAULT)[address] [place] [address] Neutrophils/100 WBC (Bld) 58 % Normal 44-88 [facility] Comment on above: Performed By: #### 1 [id number], [id number], [id number] ####[facility] (DEFAULT)[address] [place] [address] Standardon 08-12-2021 eGFR Non AA >60 Invalid Interpretation Code [facility] Comment on above: Performed By: #### 1 [id number], [id number], [id number] ####[facility] (DEFAULT)[address] [place] [address] eGFR AA >60 Invalid Interpretation Code [facility] Comment on above: Result Comment: Territory [employer] Manager medina Kidney disease could be indicated at eGFRs of less than 60 ml/min/1.73m2. Kidney Failure is indicated at less than 15 ml/min/1.73m2 Performed By: #### 1 [id number], [id number], [id number] ####[facility] (DEFAULT)[address] [place] [address] Anion gap [Moles/Vol] 14.0 mmol/L Normal 5.0-19.0 [facility] Comment on above: Performed By: #### 1 [id number], [id number], [id number] ####[facility] (DEFAULT)[address] [place] [address]79 Calcium [Mass/Vol] 9.6 mg/dL Normal 8.9-10.3 [facility] Comment on above: Performed By: #### 1 [id number], [id number], [id number] ####[facility] (DEFAULT)[address] [place] [address]014 Chloride [Moles/Vol] 102 mmol/L Normal 101-111 [facility] Comment on above: Performed By: #### 1 [id number], [id number], [id number] ####[facility] (DEFAULT)[address] [place] [address]4028 CO2 [Moles/Vol] 25 mmol/L Normal 21-32 [facility] Comment on above: Performed By: #### 1 [id number], [id number], [id number] ####[facility] (DEFAULT)[address] [place] [address] Creatinine [Mass/Vol] 0.72 mg/dL Normal 0.60-1.30 [facility] Comment on above: Performed By: #### 1 [id number], [id number], [id number] ####[facility] (DEFAULT)[address] [place] [address] 54891 Glucose [Mass/Vol] 100.0 mg/dL Normal 74.0-118.0 [facility] Comment on above: Performed By: #### 1 [id number], [id number], [id number] ####[facility] (DEFAULT)[address] [place] [address] 70664 Osmolality 275 mOsm/L Invalid Interpretation Code [facility] Comment on above: Performed By: #### 1 [id number], [id number], [id number] ####[facility] (DEFAULT)[address] [place] [address] Potassium [Moles/Vol] 3.4 mmol/L Low 3.6-5.1 [facility] Comment on above: Performed By: #### 1 [id number], [id number], [id number] ####[facility] (DEFAULT)[address] [place] [address] Sodium [Moles/Vol] 138.0 mmol/L Normal 136.0-144 . 0 [facility] Comment on above: Performed By: #### 1 [id number], [id number], [id number] ####[facility] (DEFAULT)[address] [place] [address] Urea nitrogen [Mass/Vol] 10 mg/dL Normal 8-26 [facility] Comment on above: Performed By: #### 1 [id number], [id number], [id number] ####[facility] (DEFAULT)[address] [place] [address] Urea nitrogen/Creatinine [Mass ratio] 14.0 mg/mg Normal 4.6-16.2 [facility] Comment on above: Performed By: #### 1 [id number], [id number], [id number] ####[facility] (DEFAULT)[address] [place] [address] CBC w/ Auto Diffon 2 Erythrocyte distribution width (RBC) [Ratio] 14.6 % Normal 11.5-15.0 [facility] Comment on above: Order Comment: CBC C LOTTED. PATIENT CALLED BACK FOR RECOLLECT. Performed By: #### 1 [id number], [id number], [id number] ####[facility] (DEFAULT)[address] [place] [address] Hematocrit (Bld) [Volume fraction] 35.0 % Normal 33.7-40.4 [facility] Comment on above: Order Comment: CBC C LOTTED. PATIENT CALLED BACK FOR RECOLLECT. Performed By: #### 1 [id number], [id number], [id number] ####[facility] (DEFAULT)[address] [place] [address] Hemoglobin (Bld) [Mass/Vol] 11.0 g/dL Low 11.3-15.9 [facility] Comment on above: Order Comment: CBC C LOTTED. PATIENT CALLED BACK FOR RECOLLECT. Performed By: #### 1 [id number], [id number], [id number] ####[facility] (DEFAULT)[address] [place] [address] Instr WBC 8.6 x10 Invalid Interpretation Code [facility] Comment on above: Order Comment: CBC C LOTTED. PATIENT CALLED BACK FOR RECOLLECT. Result Comment: CBC RECOLLECTED @ 08/12/2021 15:15:27 EDT BY MHDMITCHELL. GILMORE. Performed By: #### 1 [id number], [id number], [id number] ####[facility] (DEFAULT)[address] [place] [address] Man Diff? Auto Normal [facility] Comment on above: Order Comment: CBC C LOTTED. PATIENT CALLED BACK FOR RECOLLECT. Performed By: #### 1 [id number], [id number], [id number] ####[facility] (DEFAULT)[address] [place] [address] MCH (RBC) [Entitic mass] 25 pg Normal 24-34 [facility] Comment on above: Order Comment: CBC C LOTTED. PATIENT CALLED BACK FOR RECOLLECT. Performed By: #### 1 [id number], [id number], [id number] ####[facility] (DEFAULT)[address] [place] [address] MCHC (RBC) [Mass/Vol] 31 g/dL Normal 26-37 [facility] Comment on above: Order Comment: CBC C LOTTED. PATIENT CALLED BACK FOR RECOLLECT. Performed By: #### 1 [id number], [id number], [id number] ####[facility] (DEFAULT)[address] [place] [address] MCV (RBC) [Entitic vol] 79 fL Low 81-100 [facility] Comment on above: Order Comment: CBC C LOTTED. PATIENT CALLED BACK FOR RECOLLECT. Performed By: #### 1 [id number], [id number], [id number] ####[facility] (DEFAULT)[address] [place] [id number] Platelet 491 x10 High 138-427 [facility] Comment on above: Order Comment: CBC C LOTTED. PATIENT CALLED BACK FOR RECOLLECT. Performed By: #### 1 [id number], [id number], [id number] ####[facility] (DEFAULT)[address] [place] [id number] Platelet mean volume (Bld) [Entitic vol] 9.4 fL Normal 6.3-10.2 [facility] Comment on above: Order Comment: CBC C LOTTED. PATIENT CALLED BACK FOR RECOLLECT. Performed By: #### 1 [id number], [id number], [id number] ####[facility] (DEFAULT)[address] [place] [address]88[address] RBC 4.41 x10 Normal 3.70-5.30 [facility] Comment on above: Order Comment: CBC C LOTTED. PATIENT CALLED BACK FOR RECOLLECT. Performed By: #### 1 [id number], [id number], [id number] ####[facility] (DEFAULT)[address] [place] [address] WBC 8.6 x10 Normal 3.5-10.5 [facility] Comment on above: Order Comment: CBC C LOTTED. PATIENT CALLED BACK FOR RECOLLECT. Performed By: #### 1 [id number], [id number], [id number] ####[facility] (DEFAULT)[address] [place] [id number] MRI Knee w/o Lefton 07-27-19 MRI Knee [...] by Michael Pappas on 07/28/2021 1331 Normal [facility] [employer] Consult[employer] BASIC METABOLIC PANELon - BUN/CREATININE RATIO NOT APPLICABLE Normal 6- [facility] Comment on above: Order Comment: FASTI NG:YES FASTING: YES Performed By: #### 1 [id number] #### [facility] [address], [address] [place] [address] Product Manager Medical Device: Heraclio Miller MD Calcium [Mass/Vol] 9.0 mg/dL Normal 8.6-10.4 [facility] Comment on above: Order Comment: FASTI NG:YES FASTING: YES Performed By: #### 1 [id number] #### [facility] [address], [address] [place], [place] [id number] Product Manager Medical Device: Heraclio Miller MD Chloride [Moles/Vol] 106 mmol/L Normal 98-110 [facility] Comment on above: Order Comment: FASTI NG:YES FASTING: YES Performed By: #### 1 [id number] #### [facility] [address], [address] [place] [address] Product Manager Medical Device: Heraclio Miller MD CO2 [Moles/Vol] 27 mmol/L Normal 20-32 [facility] Comment on above: Order Comment: FASTI NG:YES FASTING: YES Performed By: #### 1 0165 #### [facility] [address], [address] [place] [address] Product Manager Medical Device: Heraclio Miller MD Creatinine [Mass/Vol] 0.73 mg/dL Normal 0.50-1.05 [facility] Comment on above: Order Comment: FASTI NG:YES FASTING: YES Result Comment: For patients >49 years of age, the reference limit for Creatinine is approximately 13% higher for people identified as -[place]. Performed By: #### 1 0165 #### [facility] [place] [address] Product Manager Medical Device: Heraclio Miller MD eGFR NON-AFR. ZAMBIAN 96 mL/min/1.73m2 Normal > OR = 60 [facility] Comment on above: Order Comment: FASTI NG:YES FASTING: YES Performed By: #### 1 0165 #### [facility] [place] [address] Product Manager Medical Device: Heraclio Miller MD GFR/1.73 sq M.predicted among blacks MDRD (S/P/Bld) [Vol rate/Area] 111 mL/min/{1.73_m2} Normal > OR = 60 [facility] Comment on above: Order Comment: FASTI NG:YES FASTING: YES Performed By: #### 1 0165 #### [facility] [place] [address] Product Manager Medical Device: Heraclio Miller MD Glucose [Mass/Vol] 85 mg/dL Normal 65-99 [facility] Comment on above: Order Comment: FASTI NG:YES FASTING: YES Result Comment: Fasting reference interval Performed By: #### 1 0165 #### [facility] [place] [address] Product Manager Medical Device: Heraclio Miller MD Potassium [Moles/Vol] 3.7 mmol/L Normal 3.5-5.3 [facility] Comment on above: Order Comment: FASTI NG:YES FASTING: YES Performed By: #### 1 0165 #### [facility] [place] [address] Product Manager Medical Device: Heraclio Miller MD Sodium [Moles/Vol] 140 mmol/L Normal 135-146 [facility] Comment on above: Order Comment: FASTI NG:YES FASTING: YES Performed By: #### 1 0165 #### [facility] [address], [address] Product Manager Medical Device: Heraclio Miller MD Urea nitrogen [Mass/Vol] 12 mg/dL Normal 7-25 [facility] Comment on above: Order Comment: FASTI NG:YES FASTING: YES Performed By: #### 1 0165 #### [facility] [address], [address] Product Manager Medical Device: Heraclio Miller MD Coding Summaryon 01-28-2021 Coding Summary HTMLBase 64 ZztsapgnYCq1yLp+PGhlY WQ+WM1XITWwU24zoLPmnJ 6YX4sFTZ1LLIGEUZPTLW8 MGU7ffOR7ATinS3IxzqZc RoeckYAgGT17LGc3EMA8k LidFUqgcF8ihZSsC4n6Up RjHB90gB83LNibLZObCrM 3LjZpbjsgbWFy T4orOjFicSSbSet+PHRhY mxlIHdpZHRoPScxMDAlJy IwsRqbQR6fZu1zMKMiPSH vbGxhcHNlOiBj d3rvTDSkSIvuIU5djRhdN 0IffVE6EHMap6t1Qw51kN I+GZUgOSG3gHxfVSsdh22 9TtIua6ryJKE7 jEToNGmkOLX5P54lp7A8N RUePKJtZKV5hFY2zP2lwJ vjleiuH9DjwOQqQeR5ZCA 3dZZhiL6mjQdi evaodF1lCbh+C03DFV9WJ JFQFV3NAiu8P9DqJgchyS I+PN93XWWuDZ30lXVvlWK ib0traEk4WgYa DMCdDPO6bQibIAddp5IpP QYdT23ndFQcg4P7IAWmnD zpvZAcWwTjwIW0gJ1uHEf xqgkld2egszoq Ugjxg0ecou45cA76G70rP KvaDCApVGW7XRPgALSfpI kuxy2ffJ0sTd0+RQtfq2v lx0bspOe3JwEk ZGRisnRmmGogJIG2o4IbA u85J2VacPnij5JeZjt7jf 29rWKal8G3gMN8GGspKYN tvH7oHZwoKtB9 ZVIdJnSkuH84mOEkFPgjY v3efNuzyQcbLC3sCZHgui fbXLDxyT2oAQGtsORdqXx fWV6aRVQeriik h277OeJkTAS1YMJzwYYfQ 7NunN5gCoToNYUlGZKnT6 UouPZqLEpvK188MRxlVxM 2VRBlzySaG7Ez TTNzuSoxDmD9l9J5On1Ig 5EsjuqpKDX1ADzhBIUmDn J4JaOyAlD7Z4McJry1COR olIcpMS2uZ3Gt HKSwefavvvpreJK1HSKeG JHexL35tXLkALqjQl3dn7 U0f956LCZoARNwyP41Te1 udDogMTBwdCBU mD3ourxte7lghvqfMsMeZ FNkEIe7MBm0TVDqhRgcGk QuQBV3MvB9UKO6wQPuqD5 lpChbkmekdZ9x Oyc+H97pvR5qRKJ8JNC9l irfSJOnjuLpHQ77FF98T3 RyPjwvdGFibGU+PGRpdiB esZttDI7qLlDx p8rju7IwYMcxS5SgXNZsW MvoNnl9CAWtXAN1tVI4kM 7mGAJjUTedm7F3vZC1W3R brkJzfp7lb5wz GCPjJFfsR12hfYAwm1J9S AMmsZB9ZIHpgPwyLfXvnP 93Oyc+TVQppEbvm9StRai ks0mgd6dkpAa4 DkSjTIJfyaYkvNkwJAQ7v 2PmZz09V24xGGhtBBBiCQ FgIWPkYARyrBqggo6bmQ9 wIi8+PGNvbCB3 iWM5oZ7oIJTsMtC3FDuqC 946FdOtbETwQfrse2fnm8 ddcBu0BnBwNCXnkwZppMq aZRZ0n2YnEl53 Q48vUPltIBIyZNRdYVGqA VQtvQcigu0jnB9sHe9+PC 6lg0vbfp14nS97mYC+PHR vHNF7vYmxNZpk CYAkyV9xOXodGpO1QSPdY wEkgA65oEXiADwfWs6anW twbAwrPR5gAOAzcjvti95 1CkVxq9utTVMd zCJlEQqrGLK4H11bo6T6O WEsRNVkOWT6sRD6fF4ysU lnbjogbGVmdDsgdmVydGl qQOqtZIofE836 IHRvcDsnPlBhdGllbnQgT uLmYXb3X3AzUga5RGRasU ssXA4ogHQkPJpeZv4uyUt jxLnjKQ9rXHPy kwbbo876SePyd0asHOGzo MUdRLouVNE6X04mb8D3DY ZfIQGhBPH1iTE8zJ5efMd nbjogbGVmdDsg gxOlpRpxNBokTSdfS751N HRvcDsnPkJpcnRoIERhdG A2GB98EC83gDQjc3X6lTV 7M0LyOQKuuufq vuhjhYB5UJLqFSBrcD27B d2ktZtwGd4nZBTwZNM0ST OlnYWeZ4JvyY7zLhOuYQQ yRBWwA4KsnNSt QUlgH002SKizVmX1ZVMnu rDhK1YrTVJatBiaLgP2j4 G3Jl9UG5R5WS15ZD92rGV jk5D8jKI3G1Cz KQXxvqfjqycdsAC9CQLqV GUwbJ47Bc4lbEbpMa1sZU FzCPG5XUWonKVcJ8KufJ2 yOiAjMDAwMDAw F2TigCNdDJoeS170UNwcK bI2ABWrcvSqD1VvONBxbP muLpI3n0D6Qn5WEMn0PA5 2KJ36xVNoq4J8 kIN8U6BmIBVxjjlkezvdg NF9AIVwUYTtcF42Sk0qoF xqEw1bOINhQFK8SXNvrET pB2XlbC9gOvRc QOWiACXoM1MlnSViRYzyC 014SUenGkA6HUJzdhZvI7 NzFSXxbXzzZhC3p5N0Ub1 DARPiGN04NWX5 yGW2KL01OG70R1PpMfmez GFibGU+PHRhYmxlIHdpZH RoPScxMDAlJyBzdHlsZT0 jLz7dYLNrYBIg aZrtfIXvBoQts8mhEXXdR NehET9osCnvI6HexKE4XA Ois6f6Ij92Y02gC6YjxWM +PXQzfBE4cIR0 nC7kLwXtQmG2CQswR221A yMoqMNjFelru5qce6uggK s4GuI7KSAscoUkjKvwHXA 0r9KaHn40Y98n IHdpZHRoPSIxNSUiIHZhb Hmimq9prB4dXw4+PGNvbC U7pFH8lO3aOjTxRxO4LLa uF214NjXahYAv Hkdsi9lhi4dhyVk2QtPbS UGnynUorZbfZZR1w9YrDk 26O5UzeLhal6SpSgp6fm7 8gHQmu6E3lUM0 Z8HgTUStzqoxiELaeZosM X0wOQUmwrykCVKwgJ7dNB TjE5i1RlKsAkZ3RPumT1Y vaqW1FWSdeXLq CEunZKS2T59pr5N5LASfN SOvCKV1hMP3xJ4quRzhjs ogbGVmdDsgdmVydGljYWw eQPryY963JXOd yGyxHDRokM5jIVBuxRDso WcwJP9fACHungahKyxDAJ 1BTiwgRUxJWkFCRVRIIEF OTjwvdGQ+PHRk NSN1aSbeXOloRSJieR1rG PZfF6e4DxXgZuA8XQlyP2 FdKHOwjqkuMz84oG3pIvT pYlM2KJhdV5Qz ceD7TUQatDAxTIzmDQC7Q 27mj6N3GWZeRIIqDYH3pR W1cM8cbGglcimkaERpfMz gdmVydGljYWwt OKhaP131PTVgwUhgCdE2C jFmYpK3DmI4H3AoZmh2SM VteAnmUS6gxVCdQRitJs5 dsEykfApbXM0o DZVttgvoQEHfhG6kJZDuq ESfeOkoFH5rWQEotkyvw2 99HbJiCDH9RHMlsHQdO0W bvF0aZhKaPMQe MDVgG1SlkSOhALarI785Y CqhQgW9JSHnfuDjW2CxSE TmkSwlUhR9v9F0Fq41LAZ ZZWFyczwvdGQ+ IORyQNS5zFamRTmnHKWhx A4zYMXpL3w0UpRoUrC2TU dpW4ChVNFhlcocQe28gA4 hCsImVmJ9KQzn L7GigpT0GZTxuZPwFFfwZ MY9G08fj5J7AZIsAUIoNG J2iEU3xW9vqMetmzjpvOP mdDsgdmVydGlj MVprAKpxB842VYGrtAslL kZFTUFMRTwvdGQ+PHRkIH I8zCvoOWznLAHejJ6aOZC cL3k5LfDkEhB2 CAfbS3UzPMGizmoeWv94c V1gHvPeKnA2KFheJ6Yuun C0SAHebNDkARjwDLA0P04 yg2H2PHJqJUDx DPK9sFV3dF1zoEdqsrwqk GVmdDsgdmVydGljYWwtYW euQ755VZAmwLtmOxIttXK QeUOtNSD6KQ99 TE24N2IiLouybKLdjSX+P HRhYmxlIHdpZHRoPScxMD JrWeVwnUjyNN7rBh2wYSP yLWNvbGxhcHNl LvHur9wiZKXuBYjiCL7xw OilX5GmlZT7QGCuh9y2Nz 67V10iT8YmeKQ+PGNvbCB 2hZS3xF8dVmKj MtY2EDpdD226VcTuwLCuX wlfn8ayj0uchId1CtJmHI UglaLthMdzESR0d7SoVq8 5G53vEEcrFDMk VVFlIWCbTZUqnQhfvl2ee G9wIi8+AQYmfAT6cSF8sA 5uZhTzRyO0VWbrX234DaP rtPOaAatxQ14v W1KqyRS+YBIcZxy4BKXjd NitCS2iyFWrSCgwUc0cAT R1IoQaKlSjLSpvT3KyWRN pbmctcmlnaHQ6 MISpDKFopQ33Wj1ucAsoO c2kTPMiFFP4RXUkjQSnU8 KjrH8oMcRtFYYhLIFdG0R syILkJRamW804 OMsqRgJ3DOGwxxWlH4FsW WVdsRldBpZ6s1J0Cd3YfB mfjXMjGE9fIuBrIMz5R4F iGkh1QGWasJcl QT8hlFFwLGyjBs7npSlog IcqEG5qQRGznweex433Ak Miw2alMFSgwXVbYMevEVD 9Q84as5T4IEAt ODMzSYE5hTG8mR5jtFoau jogbGVmdDsgdmVydGljYW xuSRqsT398HYBilJzkEsL GRxl9S1BxFbz9 JAGxsQpxVX7zzZVjAWroD j0xuPrfkYbvOL5wJUBbqx cca037AxJzw8bzLKKeqDI yGYhyWKF8U93v r8O1BDNqDYUfFWQ1oPE8z V0noZbabkosaSHvoYbyof RcsFokHHynVOtgU282ENS oqAixAs7DFod1 W5ClGbn8RTNseXcwTQ5cx BGxJJlwJd5myIkijGspZF 9gJQWolepvp070OdSvk4p kIDEwcHQgVGlt PKN4C44gn2M0WDTrTRAjH XW8pCS6nP2eyHyrfnvbmI VmdDsgdmVydGljYWwtYWx wX931HDMbrNdo PlBheWVyOjwvdGQ+PC90c k50S5FdXakcWut9WQWqVD C9vPB4bX6oSJMwJPwjs2M 1sWN2L4UyjjWy ci1 (more content not included)... [facility] Consent Formson 01-23-2021 Consent Forms [id number]#1 [facility] PACU Record [facility] PACU Record Summary Primary Physician: Hua Oglesby DO Finalized Date/Time: 01/23/21 13:00:07 Pt. Name: IKE FLANNERY/Sex: 1970 FEMALE Med Rec #: [id number] Physician: Hua Oglesby DO Financial #: [id number] Pt. Type: D Room/Bed: / Admit/Disch: 01/21/21 06:05:01 - 01/21/21 10:08:00 Institution: PACU Case Times MAGR Entry 1 In PACU I 01/21/21 08:20:00 Discharge from PACU 01/21/21 09:04:00 I Last Modified By: Lisa Connell RN 01/23/21 13:00:04 Finalized By: Lisa Connell RN Document Signatures Signed By: Lisa Connell RN 01/23/21 13:00 [facility] Consent Formson 01-22-2021 Consent Forms [id number]#1 [facility] Dis[facility] Instructions [id number]#1 [facility] Tele[facility]pson Telemetry Strips [id number]#1 [facility] 01-21-2021 Anesthesia Note Patient: IKE [...] on: 01/21/2021 08:25 EST] Gen Jean MD [facility] Anesthesia Note Patient: IKE FLANNERY Age: 50 years Sex: FEMALE : 1970 Associated Diagnoses: None Author: Gen Jean MD Preoperative Information Anesthesia history: Patient history: Nausea and vomiting with anesthesia, No difficult intubation, No malignant hyperthermia. Family history: No malignant hyperthermia. Review of Systems Respiratory: No shortness of breath, No apnea. Cardiovascular: No known NM, No chest pain. Gastrointestinal: No heartburn. Health [...] All Problems HTN (hypertension) / SNOMED CT [id number] / Confirmed Histories Family History: No family history items have been selected or recorded. Procedure history: Abdominal hysterectomy (486245301). Arthroscopy of knee ([id number]). Lipoma ([id number]). Comments: 01/04/2021 11:19 OSKAR Becker RN, Milana [...] Results ECG interpretation: Within normal limits. Plan [place] [employer]#( A) physical status classification: Class II. Anesthetic Preoperative Plan Anesthesia: General. . Anesthetic plan, risks, benefits, and alternatives discussed with the patient and/or family. Patient verbalized understanding. Family/Guardian present. Informed consent was given. Consent was signed by the patient. [Electronically Signed on: 01/21/2021 07:10 EST] Gen Jean MD [Verified on: 01/21/2021 07:10 EST] Gen Jean MD Normal [facility] Inpatient Patient Summaryon 01-21-2021 [place] [address] Patient Discharge Instructions Name: IKE FLANNERY : 1970 Patient Address: [address] [place] [address] Primary Care Provider: Name: RANDY CALLE After you are discharged if you find you have any questions, please, call [phone] ext [phone] to speak to a nurse. Discharge Diagnosis: [...] problems; contact the [facility] 22/09 Crisis Hotline -Text 4HOZC ry [id number]. If you received any narcotics, sedation, or [...] business decisions or sign any legal documents [facility] would like to thank you for allowing us to assist you with your healthcare needs. The following includes patient education materials and information regarding your injury/illness. IKE FLANNERY has been given the following list of follow-up instructions, prescriptions, and patient education materials: Follow-up Instructions With: Address: When: MYESHA VINSON [address], [address] [place] [address] Business (1) 01/30/2021 11:00 AM With: Address: When: RANDY HALLMAGALYS [address] [place] [address] Business (1) Medications During the course of [...] or concerns, please call the office at [phone] Viruses or Bacteria What?s got you sick? [...] (except strep) (more content not included)... Normal [facility] MAGR Intraoperative Recordon 01-21-2021 MAGR Intraoperative Record MAGR Intra-Op Record Summary Primary Physician: Hua Oglesby DO Finalized Date/Time: 01/21/21 11:10:34 Pt. Name: IKE FLANNERY/Sex: 1970 FEMALE Med Rec #: [id number] Physician: Hua Oglesby DO Financial #: [id number] Pt. Type: D Room/Bed: / Admit/Disch: 01/21/21 [...] Role Performed Surgeon - Primary Anesthesiologist of Staffing Assistant Record Time In 01/21/21 07:22:00 01/21/21 07:22:00 01/21/21 07:22:00 Time Out 01/21/21 08:17:00 01/21/21 08:17:00 01/21/21 08:17:00 Procedure Arthroscopy Knee(Right) Arthroscopy Knee(Right) Arthroscopy Knee(Right) Last Modified By: Dorothy Archer RN, Barbara RN Long, Barbara RN 01/21/21 08:21:11 01/21/21 08:21:11 01/21/21 08:21:11 Entry 4 Entry 5 Case Attendee Nemo Mendez CST, Regina CST Role Performed Scrub Personnel Acupuncture Physician Time In 01/21/21 07:22:00 01/21/21 07:22:00 Time [...] 07:55:36 Post-Care T (more content not included)... [facility] MAGR Postoperative Recordon 01-21-2021 MAGR Postoperative Record MAGR Phase II Record Summary Primary Physician: Hua Oglesby DO Finalized Date/Time: 01/21/21 10:17:55 Pt. Name: IKE FLANNERY/Sex: 1970 FEMALE Med Rec #: [id number] Physician: Hua Oglesby DO Financial #: [id number] Pt. Type: D Room/Bed: / Admit/Disch: 01/21/21 [...] Signed By: Marianna Gerber RN 01/21/21 10:17 [facility] 03-23-2020 MAGR Preoperative Record MAGR Pre-Op Rec ord Summary Primary Physician: Hua Oglesby DO Finalized Date/Time: 01/21/21 08:40:07 Pt. Name: IKE FLANNERY/Sex: 1970 FEMALE Med Rec #: [id number] Physician: Hua Oglesby DO Financial #: [id number] Pt. Type: D Room/Bed: / Admit/Disch: 01/21/21 [...] By: Gino Painter RN 01/21/21 08:40 Normal [facility] Operative Report - Surgeon/P astre 01-21-2021 Operative Report - Surgeon/Physician Preoperative diagnosis: [...] on: 01/21/2021 10:16 EST] Hua Oglesby DO [facility] Patient Handouton 01-21-[address] [...] or concerns, please call the office at [phone] Normal [facility] 01-12-2021 Albumin [Mass/Vol] 4.3 g/dL Normal 3.6-5.1 [facility] Comment on above: Performed By: #### 7 600, 98450 #### [facility] [place] [address] Product Manager Medical Device: Heraclio Miller MD Albumin/Globulin [Mass ratio] 1.8 {ratio} Normal 1.0-2.5 [facility] Comment on above: Performed By: #### 7 600, 76626 #### [facility] [place] [address] Product Manager Medical Device: Heraclio Miller MD ALP [Catalytic activity/Vol] 60 U/L Normal 37-153 [facility] Comment on above: Performed By: #### 7 600, 78503 #### [facility] [place] [address] Product Manager Medical Device: Heraclio Miller MD ALT [Catalytic activity/Vol] 17 U/L Normal 6-29 [facility] Comment on above: Performed By: #### 7 600, 38533 #### [facility] [place] [address] Product Manager Medical Device: Heraclio Miller MD AST [Catalytic activity/Vol] 18 U/L Normal 10-35 [facility] Comment on above: Performed By: #### 7 600, 59463 #### [facility] [place] [address] Product Manager Medical Device: Heraclio Miller MD Bilirubin [Mass/Vol] 1.1 mg/dL Normal 0.2-1.2 [facility] Comment on above: Performed By: #### 7 600, 75096 #### [facility] of [address], [address] [place] [address] Product Manager Medical Device: Heraclio Miller MD BUN/CREATININE RATIO NOT APPLICABLE Normal 6-22 [facility] Comment on above: Performed By: #### 7 600, 17041 #### [facility] of [address], [address] [place] [address] Product Manager Medical Device: Heraclio Miller MD Calcium [Mass/Vol] 9.3 mg/dL Normal 8.6-10.4 [facility] Comment on above: Performed By: #### 7 600, 39469 #### [facility] of [address], [address] [place] [address] Product Manager Medical Device: Heraclio Miller MD Chloride [Moles/Vol] 105 mmol/L Normal 98-110 [facility] Comment on above: Performed By: #### 7 600, 91082 #### [facility] of [address], [address] [place] [address] Product Manager Medical Device: Heraclio Miller MD CO2 [Moles/Vol] 28 mmol/L Normal 20-32 [facility] Comment on above: Performed By: #### 7 600, 17397 #### [facility] [address], [address] [place] [address] Product Manager Medical Device: Heraclio Miller MD Creatinine [Mass/Vol] 0.86 mg/dL Normal 0.50-1.05 [facility] Comment on above: Result Comment: For patients >49 years of age, the reference limit for Creatinine is approximately 13% higher for people identified as -[place]. Performed By: #### 7 600, 85762 #### [facility] of [address], [address] [place] [address] Product Manager Medical Device: Heraclio Miller MD eGFR NON-AFR. ZAMBIAN 79 mL/min/1.73m2 Normal > OR = 60 [facility] Comment on above: Performed By: #### 7 600, 18943 #### [facility] [address], [address] [place] [address] Product Manager Medical Device: Heraclio Miller MD GFR/1.73 sq M.predicted among blacks MDRD (S/P/Bld) [Vol rate/Area] 91 mL/min/{1.73_m2} Normal > OR = 60 [facility] Comment on above: Performed By: #### 7 600, 87172 #### [facility] [place] [address] Product Manager Medical Device: Heraclio Miller MD Globulin (S) [Mass/Vol] 2.4 g/dL Normal 1.9-3.7 [facility] Comment on above: Performed By: #### 7 600, 92066 #### [facility] [place] [address] Product Manager Medical Device: Heraclio Miller MD Glucose [Mass/Vol] 86 mg/dL Normal 65-139 [facility] Comment on above: Result Comment: Non-fasting reference interval Performed By: #### 7 600, 23886 #### [facility] [place] [address] Product Manager Medical Device: Heraclio Miller MD Potassium [Moles/Vol] 3.9 mmol/L Normal 3.5-5.[address] [facility] Comment on above: Performed By: #### 7 600, 54083 #### [facility] [place] [address] Product Manager Medical Device: Heraclio Miller MD Protein [Mass/Vol] 6.7 g/dL Normal 6.1-8.1 [facility] Comment on above: Performed By: #### 7 600, 02599 #### [facility] [place] [address] Product Manager Medical Device: Heraclio Miller MD Sodium [Moles/Vol] 140 mmol/L Normal 135-146 [facility] Comment on above: Performed By: #### 7 600, 39677 #### [facility] [place] [address] Product Manager Medical Device: Heraclio Miller MD Urea nitrogen [Mass/Vol] 15 mg/dL Normal 7-25 [facility] Comment on above: Performed By: #### 7 600, 41187 #### [facility] [address], [address] [place] [address] Product Manager Medical Device: Heraclio Miller MD LIPID PANEL, [facility] 11- Cholesterol [Mass/Vol] 173 mg/dL Normal <200 [facility] Comment on above: Order Comment: FASTI NG:NO FASTING: NO Performed By: #### 7 600, 58651 #### [facility] [address], [address] [place] [address] Product Manager Medical Device: Heraclio Miller MD Cholesterol in HDL [Mass/Vol] 69 mg/dL Normal > OR = 50 [facility] Comment on above: Order Comment: FASTI NG:NO FASTING: NO Performed By: #### 7 600, 16651 #### [facility] [address], [address] [place] [address] Product Manager Medical Device: Heraclio Miller MD Cholesterol in LDL [Mass/Vol] [...] LDL-C. Campos CAMARENA et al. MARQUISE. 2013;310(19): 2459-1083 ([email or web address]) Performed By: #### 7 600, 20667 #### [facility] [address], [address] [place] [address] Product Manager Medical Device: Heraclio Miller MD Cholesterol.total/Choles terol in HDL [Mass ratio] 2.5 {ratio} Normal <5.0 [facility] Comment on above: Order Comment: FASTI NG:NO FASTING: NO Performed By: #### 7 600, 29736 #### [facility] [address], [address] [place] [address] Product Manager Medical Device: Heraclio Miller MD NON HDL CHOLESTEROL 104 mg/dL (calc) Normal <130 [facility] Comment on above: Order Comment: FASTI NG:NO FASTING: NO Result Comment: For patients with diabetes plus 1 major ASCVD risk factor, treating to a non-HDL-C goal of <100 mg/dL (LDL-C of <70 mg/dL) is considered a therapeutic option. Performed By: #### 7 600, 59391 #### [facility] [address], [address] [place] [address] Product Manager Medical Device: Heraclio Miller MD Triglyceride [Mass/Vol] 68 mg/dL Normal <150 [facility] Comment on above: Order Comment: FASTI NG:NO FASTING: NO Performed By: #### 7 600, 16757 #### [facility] [address], [address] [place] [address] Product Manager Medical Device: Heraclio Miller MD Coding Summaryon 01-09-2021 Coding Summary [employer] 64 KecohexjYYh6xMi+PGhlY WQ+RJ8UDILyU67yyIQaaI 1JH9bQBN5JHJUVLEEBHT0 LSG7ptXM8MCseA6KwgqPd EcwkiLMiLL44XOk1TPX8b XtgDAsloR8rvNGtB9x8Wk AlBY60hW88SEjvRLExLhV 3LjZpbjsgbWFy Z3ckEgRgjWCoRng+PHRhY mxlIHdpZHRoPScxMDAlJy IwrPrsYL0eSg5jORZtWBB vbGxhcHNlOiBj i2zgONKbPWkvPS3nvBjeA 5FkyQC9EUGwk7p1Vf02qE I+TCTaPEM1pFwzLYtmo28 1WiEid6rzCBP6 uTQqFZwaIXH3K68qa5B9K JPnTVSrVER5tNR7cU5eeQ qdyshiV7OzeWZhLoS0RBX 3nGUnyA2dxAgr autgoE4gOlq+X25INA2WE RWFBW4VWgr2U3ImZzntjZ I+VN84OPFrHQ64bCIfdRA mi8wlfRo1BoCc EBWrOIO0cDnuQZfgw9DxL FNhH41chRMgb6K6VRCdsS eacMUiQeUibRY7dA9sOBs evmqjb3xcpgtn Jjicn3ibbb87iP70I98rS VzyABOxCNX2HDVeSXItzZ tirf9alV7kAg7+ORutu3e qp1xzxOi4SxLz LOUqqqFpmQcuSNC0l1DnH k47U7RxcWrdi0RnYto7nd 66rREok2C8vPM5JOzyTDB aiR6kDBkdNhF2 YJUfUeYppE19kXSgKXdnZ x6beRjqhQxcEJ2jZBDclg cxAZJjlD1kUCUslWPuiLi tHB7nVFMupxxm n746TrIkNPL1OBGdwCNbD 4OisE6kEwWbPSLoJYFtV7 UbqNWlKEvrV517BFptIfU 7IDKepbBoA6Sv ADDqnCscPhZ8w1K0Jp6Qc 6RleqtuQCE9BPieLWNrWa OnVyWbPsL9Q0PiBhz9EPQ pkOvcNS3dL1Rl MCFvvssdjoxqpTK2ZNVeE QYweG07xOGgVQjeYb3nt1 N1i085FHReDUYikA59Ue3 udDogMTBwdCBU wH6lvzkqz8qnvctbWuLvT GMeHVd6JAw6FGErkMuiOk ZiLOE9CzK2VRK5tXPjlB4 bfYxuaifvoF6h Oyc+Y51xfO3iDFA0TTQ9n pehTPTeelOsFS48CT67C3 RyPjwvdGFibGU+PGRpdiB vuKzrVY3rYuNo i4vaq3QjUEkwE4ZtLFThS RwjQzq5NLIhLNG3lEF0tA 1pVWUfXWnit9H4qFX1M4I yaqSjsw2nq2mc QWNfZQymG58qkCFrf9W4K LWybFO6KMCjjVwdYiZcgG 93Oyc+HWPpmViza3OyMuf uz7low4zmzLf5 DcJaWMPmgcAkvKvoYAB7o 8VcQs95I57tYTtlEXGmWQ LfTBGpVEIowQfdoo9quZ6 wIi8+PGNvbCB3 dDY7fX1tIIVlYrV9ODqwI 046OvEcsGBsXhgga0tfr5 fjvWt0GjLuGGQwwsEcvKk mKIE4u4AuWp86 Y45jAWbwJYAoYTSgDEGcU RZsaQrppk2qeE2vWc1+PC 7gr1synb71uX76tSS+PHR pKTS7bMgqQNhw EZZheW7zGWumPkN4ERXmF vDrsF46xSBxXSeuDt1duX xboXuoEV2rVNMorcjcx91 2AiXck9gzEHSj nXEqURtcKBP9E16ok3Y5E DMbRNUfKQB4xBO2iK2cuT lnbjogbGVmdDsgdmVydGl hIEfzRIceN396 IHRvcDsnPlBhdGllbnQgT eBrPSc9A7MxCip3HIIqoS qgRP9eoRXjFEblUv6yeSc mmScyEI7yLGHt aqxtw890ZqOpx7jzFUYxw TAdRGtnZVY6T67dz0M6RH ArFSNlIBP6oNH7sB0zkEv nbjogbGVmdDsg chIavVcqQVmlQDfzT074C HRvcDsnPkJpcnRoIERhdG G7IK71LT81jFCcn4K6nJO 5K6QeDMCellnz iklcbRS0DJBsRZQcfJ38N z8mnKciUi0zVIUwBQG1YP RjuRKdP5YqoB3aQiDmMSR kIHRmC7BmgRPr PTrwH590FJseZtD9BEFrv vCjK6SpWSZubXujCwD8l2 M8Se0UC0D6JE42UD51mYY cr3U1hTD6L3Mw XHPkdeplpwprxVU1OLPxO SNqfI65Nl8rjMoiGi6bDX OfEOQ2LWLxkELqY9PkoW1 yOiAjMDAwMDAw U7FfoEYpZBdmV643MGduS sX0GQTcdqDyO2IeHLXhaP maTxY1g1Z7Ud7YJTv8PQ8 2WA65gZFww3X3 gNT8W8XcIIXmnwjfyubcy XC8FPQqBXCpiB17Xs6qaH bnBx8vSKVrMPY2GKUnqBM yF4XimT6zWfWr YPPvUIZqO5YozIKgUPnuI 456AVoiYlQ0GHRyytIxZ4 GySVDdvVarVtG5q2T3Ue0 PHWGpGV35YMD5 cMA9WJ19ZV65O8TlOrdte GFibGU+PHRhYmxlIHdpZH RoPScxMDAlJyBzdHlsZT0 gXq7eXCUsNAMf pZhwaTDlEgYwn9drUVAoN YhpGD2xlXsxB0NpuOO5KG Mqe1y8Wj59M45hS6ZsyGU +UQHdhSG5yUG6 oT4dWiIrDyR1PGjbT030P xFlvYRlKzzpf6gwk3ijeH i3FgO9BTJuptNyyJoaOEQ 3g8PyVf20C91l IHdpZHRoPSIxNSUiIHZhb Mbuhf7ozX8iNo4+PGNvbC W9wEY8xG5rHdRqDwF1HGu iH060EsUjtBOa Vfepm9oog8twzAk1VnUtX LGupcKlvUkoQLU0f7NoYo 53V3PcgZjit4HcBkx0zf2 4vNWqc0Y0cPO3 X8JsNXNxwvcsdVTatFexT G0sCADpbmesWLYgrN7tUQ JkA1e1IrEsWbY9UJxjF5H aqeQ5BDYzgSKg TRocEUV5K20dk0B6IYLxZ TTrYRG7sTP3qP6wzZlozu ogbGVmdDsgdmVydGljYWw rTAqiT290FSJi fGssMBOlyP9pTCOprGGvv GobYD5oVBVfxynlCpvGTV 1BTiwgRUxJWkFCRVRIIEF OTjwvdGQ+PHRk KUK9uMgeEMvvKLXlrQ7nI ICpQ6f7AhYbItY1QIzhF0 IwWZRqedjvDr36qK1lZdI mPwQ3EUnvC3Rp vdS6JMPekAPkTPdjPDI5B 09vk3O3CETqUBFlFPC2qT H8yD6qrEuhgoiieLSwgHb gdmVydGljYWwt FAnqD758UTZuaGpoMbM6I hIwLsB8NuW9S7LuFzo3VT DtjQdyGR8ezXTkEKdfCv8 lrXpxcJuqQZ0y GVTpjhwxJMCcmX9yMZPtj IRzvYtdCO8oQJBdehney6 33BbKhZPV3EQDwxNNbD4Q xhZ2sYlTpZIYp DYBbZ1ObmKAyILtvX174O FrkMfR9TMTjyaJlS3KfVY UvyJhkZeP4g9I7Mt10AHG ZZWFyczwvdGQ+ ONAmISH5wRhoFLapSDLqx F9rSRUdY8i5CxAnImJ3RV csP5TuOJCfkgsvXp04lS5 nOgBpKkI8ABlj X0MydrJ7TQYloBCoXAsaU PC3B42pg6Q5GDUtWUQqEV D9pYT3aG5iiEyqmapudND mdDsgdmVydGlj JOodJGjiS739XWKidFmkJ kZFTUFMRTwvdGQ+PHRkIH Y4xZryFPybXYKmxW3dSVK oM0p2EkBsOxG1 EQidL6RjTGWuakloPp11t U6gGtCcBdQ1WFkxY0Begs O3WHVojMTbKQxgDNX1L53 mz8Y7LAXaXGVp XLK9rXV2dO2zvYgjxhmma GVmdDsgdmVydGljYWwtYW lmO877WMHccRwuTh0ZFQ8 3JO77W1QmUnpb dGFibGU+PHRhYmxlIHdpZ HRoPScxMDAlJyBzdHlsZT 8oZm4mRSKsTJCifJswlHS gQvXvm9usHWYn HQcnAO2ohNvyC7JvcKQ5Q YQmk7t5Yb86Q28iL8TynR A+SOAmzWS0gJC2uF8fKqB aEdH4HRozQ457 GfItfPWsEymgq4aqm9dcj Dp3DdSwJVNvgcCjsQmmUW K3c8JgEq25H05mUMlsKAP oPSIyMCUiIHZh pLisrl9ryR7dDa3+PGNvb DK6tAC7nA4lNfSmBqF5GP zaG649ZjIhaQZhAmbiZ49 fT0ZmyOT+PHRy Kzw2CBTcbDbmUK9uyWBqY CmiCf1iJWR8IdTdVxXnEN mbL1YyHOJcubmlincirQO 3DNQfSGNwsY92 Nt0nvOiuFa0nAYUoHFX6I JWrxBZtH7RuxW8vScCnQE YcXFCtM7JlyHNpLVftD82 4JWkyIyI2EDWh ctCyD1IpHQOmdJvhLlR9e 9C9Cb2DqOdqhQEyHQ1dQw CwWMf0L6QyZdu8TSQjkQa yLL6imKWqFYxb Ky4wbDzguAblOG6jDJVps omfs711WgKbo3yeJGGwjN SfRTcpHYQ9Q39xl5T7FON hAGBhKYK1qRK9 wF9vtJhkyrweqCQjoFlvn tEwyOstKWtzSHfeZ418ZD ZmfZemHuDQZud0J4FyTrp 8GYJzbQlfVC1k aBBwHXdyFv0pjAsgpPylA U9iJPHjpzlhx928XtNoy7 ilDWLbgCOpONrnHIS0F32 wm3W3GXBnEFWq DHH2uIH2jI2jjKutypykv GVmdDsgdmVydGljYWwtYW yiT587HROpoZjwLo4OGxa 2P5WuPxs7NAGz wKmvGJ7wmXCbWTtpRe4ln ZzvdTvqMK1kSVZjkkrnm3 89ZiYtv2uaVPHdbBCbSXm sTTE9B10md4Z5 THNsEMXmAAR1xVE0gD6ff GlnbjogbGVmdDsgdmVydG ybWDtsHNsqC365DZVrlNo nPlBheWVyOjwv dGQ+JO18hv30F3JrTshlV vp0FIOwKWH9oZX8dD1wFS HpGSkzo3W0oKF4E8RloqB rbs7zh0ymGNZp ZTo (more content not included)... [facility] Consent Formson 01-08-2021 Consent Forms [id number] [facility] Progress Note - Nurseon Progress Note - Nurse PAT review for 01-21-2021 surgery reviewed per anesthesiologist, Dr. Gutierrez- no additional orders received. [Electronically Signed on: 01/07/2021 14:24 EST] Elvira Navarro RN [Verified on: 01/07/2021 14:24 EST] Elvira Navarro RN Normal [facility] .Auto Diff 101-04-2021 Auto [place] % 8 % Normal 1-12 [facility] Comment on above: Performed By: #### 1 [id number], [id number], [id number] ####[facility] (DEFAULT)[address] [place] [address] 27997 Baso Abs# 0.1 x10 Normal 0.0-0.2 [facility] Comment on above: Performed By: #### 1 [id number], [id number], [id number] ####[facility] (DEFAULT)[address] [place] [address] Basophils/100 WBC (Bld) 1.2 % Normal 0.2-2.0 [facility] Comment on above: Performed By: #### 1 [id number], [id number], [id number] ####[facility] (DEFAULT)[address] [place] [address] 93157 Eos Abs# 0.3 x10 Normal 0.0-0.4 [facility] Comment on above: Performed By: #### 1 [id number], [id number], [id number] ####[facility] (DEFAULT)[address] [place] [address] 65289 Eosinophils/100 WBC (Bld) 3.6 % Normal 0.9-4.0 [facility] Comment on above: Performed By: #### 1 [id number], [id number], [id number] ####[facility] (DEFAULT)[address] [place] [address] 93985 Lymph Abs# 2.6 x10 Normal 1.3-2.9 [facility] Comment on above: Performed By: #### 1 [id number], [id number], [id number] ####[facility] (DEFAULT)[address] [place] [address] 66952 Lymphocytes/100 WBC (Bld) 34 % Normal 14-48 [facility] Comment on above: Performed By: #### 1 [id number], [id number], [id number] ####[facility] (DEFAULT)[address] [place] [address] [place] Abs# 0.6 x10 Normal 0.0-0.8 [facility] Comment on above: Performed By: #### 1 [id number], [id number], [id number] ####[facility] (DEFAULT)[address] [place] [address] 82112 Neut Abs# 3.9 x10 Normal 1.5-9.2 [facility] Comment on above: Performed By: #### 1 [id number], [id number], [id number] ####[facility] (DEFAULT)[address] [place] [address] Neutrophils/100 WBC (Bld) 53 % Normal 44-88 [facility] Comment on above: Performed By: #### 1 [id number], [id number], [id number] ####[facility] (DEFAULT)[address] [place] [address] Standardon 01-04-2021 eGFR Non AA >60 Invalid Interpretation Code [facility] Comment on above: Performed By: #### 1 [id number], [id number], [id number] ####[facility] (DEFAULT)[address] [place] [address] eGFR AA >60 Invalid Interpretation Code [facility] Comment on above: Result Comment: Territory Business Manager medina Kidney disease could be indicated at eGFRs of less than 60 ml/min/1.73m2. Kidney Failure is indicated at less than 15 ml/min/1.73m2 Performed By: #### 1 [id number], [id number], [id number] ####[facility] (DEFAULT)[address] [place] [address] 72165 Anion gap [Moles/Vol] 12.0 mmol/L Normal 5.0-19.0 [facility] Comment on above: Performed By: #### 1 [id number], [id number], [id number] ####[facility] (DEFAULT)[address] [place] [address] 05942 Calcium [Mass/Vol] 9.5 mg/dL Normal 8.9-10.3 [facility] Comment on above: Performed By: #### 1 [id number], [id number], [id number] ####[facility] (DEFAULT)[address] [place] [address] 78987 Chloride [Moles/Vol] 102 mmol/L Normal 101-111 [facility] Comment on above: Performed By: #### 1 [id number], [id number], [id number] ####[facility] (DEFAULT)[address] [place] [address] 16365 CO2 [Moles/Vol] 27 mmol/L Normal 21-32 [facility] Comment on above: Performed By: #### 1 [id number], [id number], [id number] ####[facility] (DEFAULT)[address] [place] [address] 19471 Creatinine [Mass/Vol] 0.77 mg/dL Normal 0.60-1.30 [facility] Comment on above: Performed By: #### 1 [id number], [id number], [id number] ####[facility] (DEFAULT)[address] [place] [address] 57549 Glucose [Mass/Vol] 88.0 mg/dL Normal 74.0-118.0 [facility] Comment on above: Performed By: #### 1 [id number], [id number], [id number] ####[facility] (DEFAULT)[address] [place] [address] 79395 Osmolality 275 mOsm/L Invalid Interpretation Code [facility] Comment on above: Performed By: #### 1 [id number], [id number], [id number] ####[facility] (DEFAULT)[address] [place] [address] 50368 Potassium [Moles/Vol] 3.4 mmol/L Low 3.6-5.1 [facility] Comment on above: Performed By: #### 1 [id number], [id number], [id number] ####[facility] (DEFAULT)[address] [place] [address] 81919 Sodium [Moles/Vol] 138.0 mmol/L Normal 136.0-144 . 0 [facility] Comment on above: Performed By: #### 1 [id number], [id number], [id number] ####[facility] (DEFAULT)[address] [place] [address] 78588 Urea nitrogen [Mass/Vol] 13 mg/dL Normal 8-26 [facility] Comment on above: Performed By: #### 1 [id number], [id number], [id number] ####[facility] (DEFAULT)[address] [place] [address] 12420 Urea nitrogen/Creatinine [Mass ratio] 17.0 mg/mg High 4.6-16.2 [facility] Comment on above: Performed By: #### 1 [id number], [id number], [id number] ####[facility] (DEFAULT)[address] [place] [address] 85637 CBC w/ Auto Diffon Erythrocyte distribution width (RBC) [Ratio] 13.7 % Normal 11.5-15.0 [facility] Comment on above: Performed By: #### 1 [id number], [id number], [id number] ####[facility] (DEFAULT)[address] [place] [address] 50660 Hematocrit (Bld) [Volume fraction] 37.5 % Normal 33.7-40.4 [facility] Comment on above: Performed By: #### 1 [id number], [id number], [id number] ####[facility] (DEFAULT)[address] [place] [address] 39999 Hemoglobin (Bld) [Mass/Vol] 11.7 g/dL Normal 11.3-15.9 [facility] Comment on above: Performed By: #### 1 [id number], [id number], [id number] ####[facility] (DEFAULT)[address] [place] [address] 92549 Instr WBC 7.4 x10 Invalid Interpretation Code [facility] Comment on above: Performed By: #### 1 [id number], [id number], [id number] ####[facility] (DEFAULT)[address] [place] [address] 57561 Man Diff? Auto Normal [facility] Comment on above: Performed By: #### 1 [id number], [id number], [id number] ####[facility] (DEFAULT)[address] [place] [address] 34110 MCH (RBC) [Entitic mass] 26 pg Normal 24-34 [facility] Comment on above: Performed By: #### 1 [id number], [id number], [id number] ####[facility] (DEFAULT)[address] [place] [address] 30192 MCHC (RBC) [Mass/Vol] 31 g/dL Normal 26-37 [facility] Comment on above: Performed By: #### 1 [id number], [id number], [id number] ####[facility] (DEFAULT)[address] [place] [address] 09592 MCV (RBC) [Entitic vol] 84 fL Normal 81-100 [facility] Comment on above: Performed By: #### 1 [id number], [id number], [id number] ####[facility] (DEFAULT)[address] [place] [address] 54285 Platelet 393 x10 Normal 138-427 [facility] Comment on above: Performed By: #### 1 [id number], [id number], [id number] ####[facility] (DEFAULT)[address] [place] [address] 70484 Platelet mean volume (Bld) [Entitic vol] 9.7 fL Normal 6.3-10.2 [facility] Comment on above: Performed By: #### 1 [id number], [id number], [id number] ####[facility] (DEFAULT)[address] [place] [address] 37221 RBC 4.48 x10 Normal 3.70-5.30 [facility] Comment on above: Performed By: #### 1 [id number], [id number], [id number] ####[facility] (DEFAULT)[address] [place] [address] 77502 WBC 7.4 x10 Normal 3.5-10.5 [facility] Comment on above: Performed By: #### 1 [id number], [id number], [id number] ####[facility] (DEFAULT)[address] [place] [address] 25337 CULTURE, URINE, ROUTINEon CULTURE, URINE, ROUTINE SEE NOTE Abnormal [facility] Comment on above: Result Comment: CULTURE, URINE, ROUTINE Micro Number: [id number] Test Status: Final Specimen Source: Not given [...] By: #### 3 95 #### [facility] [address], [address] [place] [id number] Product Manager Medical Device: Heraclio Miller MD Vital Signs Date Time Vital Sign Value Performing Clinician Facility 04-26-2024 15:010500 Body height 178 cm Compology Work Phone: [facility] 04-26-2024 15:01-0500 Body mass index (BMI) [Ratio] 28.5 kg/m2 Compology Work Phone: [facility] 04-26-2024 15:01-0500 Body temperature 97.4 [degF] Evan Ajy DO Work Phone: [facility] 04-26-2024 15:01-0500 Body weight 90.52 kg Evan Jay DO Work Phone: [facility] 04-26-2024 15:01-0500 Diastolic blood pressure 69 mm[Hg] Evan Jay DO Work Phone: [facility] 04-26-2024 15:01-0500 Heart rate 86 /min Evan Jay DO Work Phone: [facility] 04-26-2024 15:01-0500 Respiratory rate 16 /min Evan Jay DO Work Phone: [facility] 04-26-2024 15:01-0500 SaO2% (BldA) [Mass fraction] 98 % Evan Jay DO Work Phone: [facility] 04-26-2024 15:01-0500 Systolic blood pressure 125 mm[Hg] Evan Jay DO Work Phone: [facility] 04-20-2024 15:11-0500 Body height 180.3 cm Marisela Cuevas REFLOW OPERATOR-RETURNED CASE INSPECTOR Work Phone: [facility] 04-20-2024 15:11-0500 Body mass index (BMI) [Ratio] 27.71 kg/m2 Marisela Cuevas REFLOW OPERATOR-RETURNED CASE INSPECTOR Work Phone: [facility] 04-20-2024 15:11-0500 Body temperature 97.59 [degF] Marisela Cuevas REFLOW OPERATOR-RETURNED CASE INSPECTOR Work Phone: [facility] 04-20-2024 15:11-0500 Body weight 90.08 kg Marisela Cuevas REFLOW OPERATOR-RETURNED CASE INSPECTOR Work Phone: [facility] 04-20-2024 15:11-0500 Diastolic blood pressure 85 mm[Hg] Marisela Cuevas REFLOW OPERATOR-RETURNED CASE INSPECTOR [facility] 04-20-2024 15:11-0500 Heart rate 84 /min Marisela Cuevas REFLOW OPERATOR-RETURNED CASE INSPECTOR Work Phone: [facility] 04-20-2024 15:11-0500 Respiratory rate 16 /min Marisela Cuevas REFLOW OPERATOR-RETURNED CASE INSPECTOR Work Phone: [facility] 04-20-2024 15:11-0500 Systolic blood pressure 143 mm[Hg] Marisela Cuevas REFLOW OPERATOR-RETURNED CASE INSPECTOR [facility] 04-13-2024 13:40-0500 Body height 180.3 cm Marisela Cuevas REFLOW OPERATOR-RETURNED CASE INSPECTOR Work Phone: [facility] 04-13-2024 13:40-0500 Body mass index (BMI) [Ratio] 27.71 kg/m2 Marisela Cuevas REFLOW OPERATOR-RETURNED CASE INSPECTOR Work Phone: [facility] 04-13-2024 13:40-0500 Body temperature 97.9 [degF] Marisela Cuevas REFLOW OPERATOR-RETURNED CASE INSPECTOR Work Phone: [facility] 04-13-2024 13:40-0500 Body weight 90.08 kg Marisela Cuevas REFLOW OPERATOR-RETURNED CASE INSPECTOR Work Phone: [facility] 04-13-2024 13:40-0500 Diastolic blood pressure 82 mm[Hg] Marisela Cuevas REFLOW OPERATOR-RETURNED CASE INSPECTOR Work Phone: [facility] 04-13-2024 13:40-0500 Respiratory rate 15 /min Marisela Cuevas REFLOW OPERATOR-RETURNED CASE INSPECTOR Work Phone: [facility] 04-13-2024 13:40-0500 Systolic blood pressure 134 mm[Hg] Marisela Cuevas REFLOW OPERATOR-RETURNED CASE INSPECTOR [facility] 04-13-2024 13:12-0500 Diastolic blood pressure 82 mm[Hg] Raymond Sepulveda MD Work Phone: [facility] 04-13-2024 13:12-0500 Heart rate 78 /min Raymond Sepulveda MD Work Phone: [facility] 04-13-2024 13:12-0500 Respiratory rate 16 /min Raymond Sepulveda MD Work Phone: [facility] 04-13-2024 13:12-0500 SaO2% (BldA) [Mass fraction] 99 % Raymond Sepulveda MD Work Phone: [facility] 04-13-2024 13:12-0500 Systolic blood pressure 134 mm[Hg] Raymond Sepulveda MD Work Phone: [facility] 04-13-2024 13:08-0500 Body height 180.3 cm Raymond Sepulveda MD Work Phone: [facility] 04-13-2024 13:08-0500 Body mass index (BMI) [Ratio] 27.71 kg/m2 Raymond Sepulveda MD Work Phone: [facility] 04-13-2024 13:08-0500 Body weight 90.08 kg Raymond Sepulveda MD Work Phone: [facility] 03-30-2024 15:58-0500 Body height 180.3 cm Marisela Glasgoweder REFLOW OPERATOR-RETURNED CASE INSPECTOR Work Phone: [facility] 03-30-2024 15:58-0500 Body mass index (BMI) [Ratio] 27.91 kg/m2 Marisela Cuevas REFLOW OPERATOR-RETURNED CASE INSPECTOR Work Phone: [facility] 03-30-2024 15:58-0500 Body weight 90.72 kg Marisela Cuevas REFLOW OPERATOR-RETURNED CASE INSPECTOR Work Phone: [facility] 03-30-2024 15:58-0500 Diastolic blood pressure 82 mm[Hg] Marisela Cuevas REFLOW OPERATOR-RETURNED CASE INSPECTOR Work Phone: [facility] 03-30-2024 15:58-0500 Heart rate 82 /min Marisela Cuevas REFLOW OPERATOR-RETURNED CASE INSPECTOR Work Phone: [facility] 03-30-2024 15:58-0500 Systolic blood pressure 123 mm[Hg] Marisela Cuevsa REFLOW OPERATOR-RETURNED CASE INSPECTOR Work Phone: [facility] 03-10-2024 11:42-0500 Body mass index (BMI) [Ratio] 27.91 kg/m2 Evan Jay DO Work Phone: [facility] 03-10-2024 11:42-0500 Body weight 90.77 kg Evan Jay DO Work Phone: [facility] 03-10-2024 11:42-0500 Diastolic blood pressure 82 mm[Hg] Evan Jay DO Work Phone: [facility] 03-10-2024 11:42-0500 Systolic blood pressure 120 mm[Hg] Evan Jay DO Work Phone: [facility] 03-10-2024 08:44-0500 Body height 180.3 cm Jhon Rosado MD Work Phone: [facility] 03-10-2024 08:44-0500 Body mass index (BMI) [Ratio] 28.1 kg/m2 Jhon Rosado MD Work Phone: [facility] 03-10-2024 08:44-0500 Body temperature 97.7 [degF] Jhon Rosado MD Work Phone: [facility] 03-10-2024 08:44-0500 Body weight 91.4 kg Jhon Rosado MD Work Phone: [facility] 03-10-2024 08:44-0500 Diastolic blood pressure 99 mm[Hg] Jhon Rosado MD Work Phone: [facility] Comment on above: Patient has not taken bp meds racquel stewart 03-10-2024 08:44-0500 Heart rate 76 /min Jhon Rosado MD Work Phone: [facility] 03-10-2024 08:44-0500 Respiratory rate 12 /min Jhon Rosado MD Work Phone: [facility] 03-10-2024 08:44-0500 Systolic blood pressure 160 mm[Hg] Jhon Rosado MD Work Phone: [facility] Comment on above: Patient has not taken bp meds racquel stewart 03-03-2024 12:50-0500 Diastolic blood pressure 85 mm[Hg] Jhon Rosado MD Work Phone: [facility] 03-03-2024 12:50-0500 Heart rate 89 /min Jhon Rosado MD Work Phone: [facility] 03-03-2024 12:50-0500 Respiratory rate 16 /min Jhon Rosado MD Work Phone: [facility] 03-03-2024 12:50-0500 Systolic blood pressure 129 mm[Hg] Jhon Rosado MD Work Phone: [facility] 02-15-2024 15:58-0500 Body mass index (BMI) [Ratio] 28.87 kg/m2 Evan Jay DO Work Phone: [facility] 02-15-2024 15:58-0500 Body weight 93.89 kg Evan Jay DO Work Phone: [facility] 02-15-2024 15:58-0500 Diastolic blood pressure 72 mm[Hg] Evan Jay DO Work Phone: [facility] 02-15-2024 15:58-0500 Systolic blood pressure 124 mm[Hg] Evan Jay DO Work Phone: [facility] 02-11-2024 14:33-0500 Body height 180.34 cm Randy Furlong DO Work Phone: [facility] 02-11-2024 14:33-0500 Body mass index (BMI) [Ratio] 28.5 kg/m2 Randy Furlong DO Work Phone: [facility] 02-11-2024 14:33-0500 Body temperature 98.2 [degF] Randy Furlong DO Work Phone: [facility] 02-11-2024 14:33-0500 Body weight 92.98 kg Randy Furlong DO Work Phone: [facility] 02-11-2024 14:33-0500 Diastolic blood pressure 82 mm[Hg] Randy Furlong DO Work Phone: [facility] 02-11-2024 14:33-0500 Heart rate 90 /min Randy Furlong DO Work Phone: [facility] 02-11-2024 14:33-0500 Systolic blood pressure 125 mm[Hg] Randy Furlong DO Work Phone: [facility] 01-25-2024 10:07-0500 Body height 180.3 cm Yves Coffey MD Work Phone: [facility] 01-25-2024 10:07-0500 Body mass index (BMI) [Ratio] 29.29 kg/m2 Yves Coffey MD Work Phone: [facility] 01-25-2024 10:07-0500 Body weight 95.25 kg Yves Coffey MD Work Phone: [facility] 12-29-2023 08:49-0400 Diastolic blood pressure 86 mm[Hg] Shereen Smallwood PA-C Work Phone: [facility] 12-29-2023 08:49-0400 Heart rate 111 /min Shereen Smallwood PA-C Work Phone: [facility] 12-29-2023 08:49-0400 Respiratory rate 14 /min Shereen Smallwood PA-C Work Phone: [facility] 12-29-2023 08:49-0400 Systolic blood pressure 143 mm[Hg] Shereen Smallwood PA-C Work Phone: [facility] 12-28-2023 21:30-0400 Diastolic blood pressure 95 mm[Hg] Rusty Clifford [facility] 12-28-2023 21:30-0400 Heart rate 85 /min Rusty Clifford [facility] 12-28-2023 21:30-0400 Mean blood pressure 114 mm[Hg] Rusty Clifford [facility] 12-28-2023 21:30-0400 Respiratory rate 16 /min Rusty Clifford [facility] 12-28-2023 21:30-0400 SaO2% (BldA) [Mass fraction] 94 % Rusty Clifford [facility] 12-28-2023 21:30-0400 Systolic blood pressure 153 mm[Hg] Rusty Clifford [facility] 12-28-2023 21:00-0400 Diastolic blood pressure 96 mm[Hg] Rusty Clifford [facility] 12-28-2023 21:00-0400 Heart rate 89 /min Rusty Clifford [facility] 12-28-2023 21:00-0400 Mean blood pressure 119 mm[Hg] Rusty Clifford [facility] 12-28-2023 21:00-0400 SaO2% (BldA) [Mass fraction] 96 % Rusty Clifford [facility] 12-28-2023 21:00-0400 Systolic blood pressure 164 mm[Hg] Rusty Clifford [facility] 12-28-2023 20:27-0400 Body temperature 98.24 [degF] Rusty Clifford [facility] 12-28-2023 20:27-0400 Diastolic blood pressure 86 mm[Hg] Rusty Clifford [facility] 12-28-2023 20:27-0400 Heart rate 95 /min Rusty Clifford [facility] 12-28-2023 20:27-0400 Respiratory rate 16 /min Rusty Clifford [facility] 12-28-2023 20:27-0400 SaO2% (BldA) [Mass fraction] 97 % Rusty Clifford [facility] 12-28-2023 20:27-0400 Systolic blood pressure 154 mm[Hg] Rusty Clifford [facility] 12-21-2023 13:57-0400 Diastolic blood pressure 84 mm[Hg] Marisela Cuevas REFLOW OPERATOR-RETURNED CASE INSPECTOR Work Phone: [facility] 12-21-2023 13:57-0400 Heart rate 96 /min Marisela Cuevas REFLOW OPERATOR-RETURNED CASE INSPECTOR Work Phone: [facility] 12-21-2023 13:57-0400 Respiratory rate 14 /min Marisela Cuevas REFLOW OPERATOR-RETURNED CASE INSPECTOR Work Phone: [facility] 12-21-2023 13:57-0400 Systolic blood pressure 141 mm[Hg] Marisela Cuevas REFLOW OPERATOR-RETURNED CASE INSPECTOR Work Phone: [facility] 12-14-2023 14:14-0400 Body height 180.3 cm Suzette DUFFY Work Phone: [facility] 12-14-2023 14:14-0400 Body mass index (BMI) [Ratio] 29.15 kg/m2 Suzette Romp PA Work Phone: [facility] 12-14-2023 14:14-0400 Body weight 94.8 kg Suzette Romp PA Work Phone: [facility] 12-14-2023 14:14-0400 Diastolic blood pressure 87 mm[Hg] Suzette Romp PA Work Phone: [facility] 12-14-2023 14:14-0400 Heart rate 86 /min Suzette Romp PA Work Phone: [facility] 12-14-2023 14:14-0400 Respiratory rate 18 /min Suzette Romp PA Work Phone: [facility] 12-14-2023 14:14-0400 Systolic blood pressure 142 mm[Hg] Suzette Romp PA Work Phone: [facility] 12-09-2023 11:55-0400 Body temperature 97.5 [degF] Amy Jack MD Work Phone: [facility] 12-09-2023 11:55-0400 Diastolic blood pressure 70 mm[Hg] Amy Jack MD Work Phone: [facility] 12-09-2023 11:55-0400 Heart rate 75 /min Amy Jack MD Work Phone: [facility] 12-09-2023 11:55-0400 SaO2% (BldA) [Mass fraction] 99 % Amy Jack MD Work Phone: [facility] 12-09-2023 11:55-0400 Systolic blood pressure 125 mm[Hg] Amy Jack MD Work Phone: [facility] 12-09-2023 09:14-0400 Respiratory rate 18 /min Amy Jack MD Work Phone: [facility] 12-05-2023 05:53-0400 Body mass index (BMI) [Ratio] 30.29 kg/m2 Amy Jack MD Work Phone: [facility] 12-05-2023 05:53-0400 Body weight 98.5 kg Amy Jack MD Work Phone: [facility] 12-03-2023 00:06-0400 Body height 180.3 cm Amy Jack MD Work Phone: [facility] 12-02-2023 10:21-0400 Body height 180.3 cm Jhon Rosado MD Work Phone: [facility] 12-02-2023 10:21-0400 Body mass index (BMI) [Ratio] 29.29 kg/m2 Jhon Rosado MD Work Phone: [facility] 12-02-2023 10:21-0400 Body temperature 97.39 [degF] Jhon Rosado MD Work Phone: [facility] 12-02-2023 10:21-0400 Body weight 95.2 kg Jhon Rosado MD Work Phone: [facility] 12-02-2023 10:21-0400 Diastolic blood pressure 88 mm[Hg] Jhon Rosado MD Work Phone: [facility] 12-02-2023 10:21-0400 Heart rate 84 /min Jhon Rosado MD Work Phone: [facility] 12-02-2023 10:21-0400 Respiratory rate 14 /min Jhon Rosado MD Work Phone: [facility] 12-02-2023 10:21-0400 Systolic blood pressure 142 mm[Hg] Jhon Rosado MD Work Phone: [facility] 11-26-2023 11:54-0400 Diastolic blood pressure 82 mm[Hg] Jhon Rosado MD Work Phone: [facility] 11-26-2023 11:54-0400 Heart rate 93 /min Jhon Rosado MD Work Phone: [facility] 11-26-2023 11:54-0400 Respiratory rate 14 /min Jhon Rosado MD Work Phone: [facility] 11-26-2023 11:54-0400 Systolic blood pressure 141 mm[Hg] Jhon Rosado MD Work Phone: [facility] 11-25-2023 14:53-0400 Diastolic blood pressure 87 mm[Hg] Marisela Cuevas REFLOW OPERATOR-RETURNED CASE INSPECTOR Work Phone: [facility] 11-25-2023 14:53-0400 Heart rate 99 /min Marisela Cuevas REFLOW OPERATOR-RETURNED CASE INSPECTOR Work Phone: [facility] 11-25-2023 14:53-0400 Respiratory rate 16 /min Marisela Cuevas REFLOW OPERATOR-RETURNED CASE INSPECTOR Work Phone: [facility] 11-25-2023 14:53-0400 Systolic blood pressure 122 mm[Hg] Marisela Cuevas REFLOW OPERATOR-RETURNED CASE INSPECTOR Work Phone: [facility] 11-18-2023 11:30-0400 Diastolic blood pressure 81 mm[Hg] Marisela Cuevas REFLOW OPERATOR-RETURNED CASE INSPECTOR Work Phone: [facility] 11-18-2023 11:30-0400 Heart rate 103 /min Marisela Cuevas REFLOW OPERATOR-RETURNED CASE INSPECTOR Work Phone: [facility] 11-18-2023 11:30-0400 Respiratory rate 12 /min Marisela Cuevas REFLOW OPERATOR-RETURNED CASE INSPECTOR Work Phone: [facility] 11-18-2023 11:30-0400 Systolic blood pressure 121 mm[Hg] Marisela Cuevas REFLOW OPERATOR-RETURNED CASE INSPECTOR Work Phone: [facility] 11-11-2023 13:35-0400 Diastolic blood pressure 81 mm[Hg] Marisela Cuevas REFLOW OPERATOR-RETURNED CASE INSPECTOR Work Phone: [facility] 11-11-2023 13:35-0400 Heart rate 98 /min Marisela Cuevas REFLOW OPERATOR-RETURNED CASE INSPECTOR Work Phone: [facility] 11-11-2023 13:35-0400 Respiratory rate 16 /min Marisela Cuevas REFLOW OPERATOR-RETURNED CASE INSPECTOR Work Phone: [facility] 11-11-2023 13:35-0400 Systolic blood pressure 125 mm[Hg] Marisela Cuevas REFLOW OPERATOR-RETURNED CASE INSPECTOR Work Phone: [facility] 11-04-2023 10:46-0400 Diastolic blood pressure 83 mm[Hg] Marisela Cuevas REFLOW OPERATOR-RETURNED CASE INSPECTOR Work Phone: [facility] 11-04-2023 10:46-0400 Heart rate 87 /min Marisela Cuevas REFLOW OPERATOR-RETURNED CASE INSPECTOR Work Phone: [facility] 11-04-2023 10:46-0400 Respiratory rate 14 /min Marisela Cuevas REFLOW OPERATOR-RETURNED CASE INSPECTOR Work Phone: [facility] 11-04-2023 10:46-0400 Systolic blood pressure 129 mm[Hg] Marisela Cuevas REFLOW OPERATOR-RETURNED CASE INSPECTOR Work Phone: [facility] 10-16-2023 12:07-0400 Body temperature 97.9 [degF] [facility] 10-16-2023 12:07-0400 Diastolic blood pressure 76 mm[Hg] [facility] 10-16-2023 12:07-0400 Heart rate 83 /min [facility] 10-16-2023 12:07-0400 Respiratory rate 20 /min [facility] 10-16-2023 12:07-0400 SaO2% (BldA) [Mass fraction] 99 % [address] 10-16-2023 12:07-0400 Systolic blood pressure 118 mm[Hg] [address] 10-16-2023 11:54-0400 Body height 180.[address] 10-16-2023 11:54-0400 Body mass index (BMI) [Ratio] 31.55 kg/m2 [address] 10-16-2023 11:54-0400 Body weight 102.[address] 10-01-2023 13:03-0400 Body height 180.34 cm DO Randy LaComunitylong Work Phone: [facility] 10-01-2023 13:03-0400 Body mass index (BMI) [Ratio] 31.6 kg/m2 DO Randy Furlong Work Phone: [facility] 10-01-2023 13:03-0400 Body weight 102.96 kg DO Randy Furlong Work Phone: [facility] 10-01-2023 13:03-0400 Diastolic blood pressure 62 mm[Hg] DO Randy Furlong Work Phone: [facility] 10-01-2023 13:03-0400 Heart rate 80 /min DO Randy Furlong Work Phone: [facility] 10-01-2023 13:03-0400 Respiratory rate 18 /min DO Randy Furlong Work Phone: [facility] 10-01-2023 13:03-0400 SaO2% (BldA) [Mass fraction] 100 % DO Randy Furlong Work Phone: [facility] 10-01-2023 13:03-0400 Systolic blood pressure 113 mm[Hg] DO Randy Furlong Work Phone: [facility] 08-20-2023 10:14-0400 Body height 180.3 cm Jhon Rosado MD Work Phone: [facility] 08-20-2023 10:14-0400 Body mass index (BMI) [Ratio] 32.39 kg/m2 hJon Rosado MD Work Phone: [facility] 08-20-2023 10:14-0400 Body weight 105.33 kg Jhon Rosado MD Work Phone: [facility] 08-20-2023 10:14-0400 Diastolic blood pressure 81 mm[Hg] Jhon Rosado MD Work Phone: [facility] 08-20-2023 10:14-0400 Heart rate 84 /min Jhon Rosado MD Work Phone: [facility] 08-20-2023 10:14-0400 Respiratory rate 18 /min Jhon Rosado MD Work Phone: [facility] 08-20-2023 10:14-0400 Systolic blood pressure 128 mm[Hg] Jhon Rosado MD Work Phone: [facility] 07-30-2023 15:05-0400 Body height 180.3 cm Christy He MD Work Phone: [facility] 07-30-2023 15:05-0400 Body mass index (BMI) [Ratio] 32.26 kg/m2 Christy He MD Work Phone: [facility] 07-30-2023 15:05-0400 Body weight 104.87 kg Christy He MD Work Phone: [facility] 07-30-2023 15:05-0400 Diastolic blood pressure 68 mm[Hg] Christy He MD Work Phone: [facility] 07-30-2023 15:05-0400 Systolic blood pressure 110 mm[Hg] Christy He MD Work Phone: [facility] 04-28-2023 08:07-0500 Body height 180.3 cm Christy He MD Work Phone: [facility] 04-28-2023 08:07-0500 Body mass index (BMI) [Ratio] 30.42 kg/m2 Christy He MD Work Phone: [facility] 04-28-2023 08:07-0500 Body weight 98.88 kg Christy He MD Work Phone: [facility] 04-28-2023 08:07-0500 Diastolic blood pressure 80 mm[Hg] Christy He MD Work Phone: [facility] 04-28-2023 08:07-0500 Heart rate 74 /min Christy He MD Work Phone: [facility] 04-28-2023 08:07-0500 Respiratory rate 16 /min Christy He MD Work Phone: [facility] 04-28-2023 08:07-0500 Systolic blood pressure 120 mm[Hg] Christy He MD Work Phone: [facility] 04-10-2023 15:17-0500 Blood Pressure Location Sandrita WILLETT [facility] [place] 04-10-2023 15:17-0500 Diastolic blood pressure 80 mm[Hg] Sandrita WILLETT [facility] [place] 04-10-2023 15:17-0500 Heart rate 72 /min Sandrita WILLETT [facility] [place] 04-10-2023 15:17-0500 Respiratory rate 16 /min Sandrita WILLETT [facility] [place] 04-10-2023 15:17-0500 Systolic blood pressure 116 mm[Hg] Sandrita WILLETT [facility] [place] 04-02-2023 11:41-0500 Body mass index (BMI) [Ratio] 30.68 kg/m2 Evan Morao DO Work Phone: [facility] 04-02-2023 11:41-0500 Body weight 99.79 kg Evan Jay DO Work Phone: [facility] 04-02-2023 11:41-0500 Diastolic blood pressure 72 mm[Hg] Evan Jay DO Work Phone: [facility] 04-02-2023 11:41-0500 Systolic blood pressure 124 mm[Hg] Evan Jay DO Work Phone: [facility] 09-29-2022 14:29-0400 Body height 180.34 cm Randy G Furlong Work Phone: [facility] [facility] DO Work Phone: 09-29-2022 14:29-0400 Body mass index (BMI) [Ratio] 31.52 kg/m2 Randy G Furlong Work Phone: [facility] [facility] DO Work Phone: 09-29-2022 14:29-0400 Body surface area Derived from formula 2.22 m2 Randy G Furlong Work Phone: [facility] DO Work Phone: 09-29-2022 14:29-0400 Body weight 102.51 kg Randy G Furlong Work Phone: [facility] [facility] DO Work Phone: 09-29-2022 14:29-0400 Diastolic blood pressure 88 mm[Hg] Randy G Furlong Work Phone: [facility] DO Work Phone: 09-29-2022 14:29-0400 Heart rate 76 /min Randy G Furlong Work Phone: [facility] DO Work Phone: 09-29-2022 14:29-0400 Systolic blood pressure 138 mm[Hg] Randy G Furlong Work Phone: [facility] [facility] DO Work Phone: 09-12-2022 14:56-0400 Body height 180.34 cm Randy G Furlong Work Phone: [facility] [facility] DO Work Phone: 09-12-2022 14:56-0400 Body mass index (BMI) [Ratio] 30.96 kg/m2 Randy G Furlong Work Phone: [facility] [facility] DO Work Phone: 09-12-2022 14:56-0400 Body surface area Derived from formula 2.2 m2 Randy G Furlong Work Phone: [facility] [facility] DO Work Phone: 09-12-2022 14:56-0400 Body weight 100.7 kg Randy G Furlong Work Phone: [facility] [facility] DO Work Phone: 09-12-2022 14:56-0400 Diastolic blood pressure 88 mm[Hg] Randy G Furlong Work Phone: [facility] [facility] DO Work Phone: 09-12-2022 14:56-0400 Heart rate 78 /min Randy G Furlong Work Phone: [facility] [facility] DO Work Phone: 09-12-2022 14:56-0400 Systolic blood pressure 132 mm[Hg] Randy G Furlong Work Phone: [facility] [facility] DO Work Phone: 08-22-2022 09:47-0400 Diastolic blood pressure 100 mm[Hg] Randy G Furlong Work Phone: [facility] [facility] DO Work Phone: 08-22-2022 09:47-0400 Systolic blood pressure 142 mm[Hg] Randy G Furlong Work Phone: [facility] DO Work Phone: 08-22-2022 09:46-0400 Body height 180.34 cm Randy G Furlong Work Phone: [facility] [facility] DO Work Phone: 08-22-2022 09:46-0400 Body mass index (BMI) [Ratio] 30.68 kg/m2 Randy G Furlong Work Phone: [facility] [facility] DO Work Phone: 08-22-2022 09:46-0400 Body surface area Derived from formula 2.2 m2 Randy G Furlong Work Phone: [facility] [facility] DO Work Phone: 08-22-2022 09:46-0400 Body weight 99.79 kg Randy G Furlong Work Phone: [facility] [facility] DO Work Phone: 08-22-2022 09:46-0400 Diastolic blood pressure 102 mm[Hg] Randy G Furlong Work Phone: [facility] [facility] DO Work Phone: 08-22-2022 09:46-0400 Heart rate 74 /min Randy G Furlong Work Phone: [facility] DO Work Phone: 08-22-2022 09:46-0400 Systolic blood pressure 148 mm[Hg] Randy G Furlong Work Phone: [facility] [facility] DO Work Phone: 07-21-2022 08:15-0400 Diastolic blood pressure 88 mm[Hg] Randy G Furlong Work Phone: [facility] DO Work Phone: 07-21-2022 08:15-0400 Systolic blood pressure 122 mm[Hg] Randy G Furlong Work Phone: [facility] [facility] DO Work Phone: 07-21-2022 08:14-0400 Body height 180.34 cm Randy G Furlong Work Phone: [facility] [facility] DO Work Phone: 07-21-2022 08:14-0400 Body mass index (BMI) [Ratio] 30.82 kg/m2 Randy G Furlong Work Phone: [facility] [facility] DO Work Phone: 07-21-2022 08:14-0400 Body surface area Derived from formula 2.2 m2 Randy G Furlong Work Phone: [facility] [facility] DO Work Phone: 07-21-2022 08:14-0400 Body weight 100.25 kg Randy G Furlong Work Phone: [facility] [facility] DO Work Phone: 07-21-2022 08:14-0400 Diastolic blood pressure 86 mm[Hg] Randy G Furlong Work Phone: [facility] [facility] DO Work Phone: 07-21-2022 08:14-0400 Heart rate 59 /min Randy G Furlong Work Phone: [facility] [facility] DO Work Phone: 07-21-2022 08:14-0400 Systolic blood pressure 132 mm[Hg] Randy Calle Work Phone: [facility] DO Work Phone: 07-14-2022 14:02-0400 Body temperature 99.32 [degF] [facility] 07-14-2022 14:02-0400 Diastolic blood pressure 86 mm[Hg] [facility] 07-14-2022 14:02-0400 Heart rate 76 /min Reid [facility] 07-14-2022 14:02-0400 SaO2% (BldA) [Mass fraction] 98 % Reid [facility] 07-14-2022 14:02-0400 Systolic blood pressure 120 mm[Hg] [facility] 11-11-2021 19:25-0400 Body height 180.34 cm Jesusita Gee Other [facility] [employer] Other 11-11-2021 19:25-0400 Body mass index (BMI) [Ratio] 28.59 kg/m2 Jesusita Gee Other [facility] [employer] Other 11-11-2021 19:25-0400 Body temperature 98.1 [degF] Jesusita Gee Other [employer] Other 11-11-2021 19:25-0400 Body weight 92.99 kg Jesusita Gee Other [facility] [employer] Other 11-11-2021 19:25-0400 Respiratory rate 18 /min Jesusita Gee Other [employer] Other 11-11-2021 19:25-0400 SaO2% (BldA) [Mass fraction] 96 % Jesusita Gee Other [employer] Other Encounters Encounter Date Encounter Type Care Provider Facility Start: 04-29-2024 End: 05-02-2024 Documentation procedure Marisela Cuevas REFLOW OPERATOR-RETURNED CASE INSPECTOR Work Phone: [facility] Start: 04-28-2024 End: 04-28-2024 ambulatory JHON CHEEMA [facility] Start: 04-26-2024 End: 04-26-2024 Patient encounter procedure [facility] Work [facility]: Start: 04-26-2024 End: 04-26-2024 ambulatory Aarti [facility] Work Phone: Start: 04-26-2024 End: 04-26-2024 Telephone encounter [facility] Start: 04-22-2024 End: 04-22-2024 Telephone encounter Marisela Cuevas REFLOW OPERATOR-RETURNED CASE INSPECTOR Work Phone: [facility] Start: 04-21-2024 End: 04-21-2024 Bamboo flowsheet Evan Jay DO Work Phone: [facility] Start: 04-21-2024 End: 04-21-2024 Bamboo flowsheet Evan Jay DO Work Phone: [facility] Start: 04-21-2024 End: 04-21-2024 Postop follow up visit related to original px Evan Jay DO Work Phone: [facility] Comment on above: Postoperative follow -up Start: 04-21-2024 End: 04-21-2024 ambulatory EVAN THOMPSON Not Available Start: 04-20-2024 End: 04-20-2024 Postop follow up visit related to original monalisa Cuevas REFLOW OPERATOR-RETURNED CASE INSPECTOR Work Phone: [facility] Comment on above: Encounter for postop erative care (Primary Dx); Seroma of breast; S/P breast reconstruction, bilateral; Breast wound, left, sequela Start: 04-20-2024 End: 04-20-2024 ambulatory [facility] Start: 04-20-2024 End: 04-20-2024 ambulatory [facility] Start: 04-13-2024 End: 04-13-2024 [employer] Safety Servicesheet Nasreen Li Twonq-A Work Phone: [facility] Start: 04-13-2024 End: 04-13-2024 [employer] Nasreen Li [employer]on[employer] Work Phone: [facility] Start: 04-13-2024 End: 04-13-2024 Postop follow up visit related to original monalisa Cuevas REFLOW OPERATOR-RETURNED CASE INSPECTOR Work Phone: [facility] Comment on above: Encounter for postop erative care (Primary Dx); Seroma of breast; S/P breast reconstruction, bilateral; Mycobacterium abscessus infection; Breast wound, left, sequela Start: 04-13-2024 End: 04-13-2024 ambulatory RAYMOND SEPULVEDA [facility] Start: 04-13-2024 End: 04-13-2024 Office outpatient new 60 minutes Raymond Sepulveda MD Work Phone: [facility] Comment on above: Malignant neoplasm o f lower-inner quadrant of right breast of female, estrogen receptor positive (CMS-HCC) (Primary Dx); Pelvic mass in female Start: 04-13-2024 End: 04-13-2024 Clinical Support Nasreen Li CCC-A Work Phone: [facility] Comment on above: 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 (Primary Dx) Start: 04-07-2024 End: 04-07-2024 Clinisync Result Encounter Evan Thompson DO Work Phone: [facility] Unsolicited Start: 04-07-2024 End: 04-07-2024 Clinisync Result Encounter Evan Morao DO Work Phone: [facility] Unsolicited Start: 04-07-2024 End: 04-07-2024 ambulatory Randy Cantung DO Work Phone: [facility] Work Phone: Start: 04-07-2024 End: 04-07-2024 Departed Referred Randy Calle DO Work Phone: [facility] Start: 04-07-2024 End: 04-07-2024 ambulatory Ulisses GONSALEZ Facility:[id number] Start: 03-30-2024 End: 03-30-2024 Postop follow up visit related to original px Marisela Cuevas REFLOW OPERATOR-RETURNED CASE INSPECTOR Work Phone: [facility] Comment on above: Encounter for postop erative care (Primary Dx); S/P breast reconstruction, bilateral; Mycobacterium abscessus infection; Breast wound, left, sequela Start: 03-30-2024 End: 03-30-2024 ambulatory MARISELA CUEVAS [facility] Start: 03-21-2024 End: 03-21-2024 Evaluation and management of inpatient RENO KENYON [facility] Start: 03-21-2024 End: 03-21-2024 Evaluation and management of inpatient JHON ROSADO [facility] Start: 03-18-2024 End: 03-18-2024 Evaluation and management of inpatient RICHIE HANNA [facility] Start: 03-18-2024 End: 03-18-2024 Admission to establishment [facility] Pat Phone Call Provider 4 Nuha Sultana [facility] Start: 03-16-2024 End: 03-16-2024 ambulatory JOSSY MOODY [facility] Start: 03-15-2024 End: 03-15-2024 Telephone encounter [facility] Start: 03-14-2024 End: 03-14-2024 ambulatory Randy Furlong DO Work Phone: [facility] Work Phone: Start: 03-14-2024 End: 03-14-2024 Patient encounter procedure Randy Halllong DO [facility] Work Phone: Start: 03-10-2024 End: 03-10-2024 [...] [facility] Start: 03-10-2024 End: 03-10-2024 ambulatory JHON ROSADO [facility] Start: 03-10-2024 End: 03-10-2024 Postop follow up visit related to original px Jhon Rosado MD Work Phone: [facility] Comment on above: Postoperative visit (Primary Dx); Mycobacterium abscessus infection; S/P breast reconstruction, bilateral; Malignant neoplasm of lower-inner quadrant of right breast of female, estrogen receptor positive [place] Start: 03-03-2024 End: 03-03-2024 Postop follow up visit related to original px Jhon Rosado MD Work Phone: [facility] Comment on above: Mycobacterium absces nathan infection (Primary Dx); S/P breast reconstruction, bilateral; Malignant neoplasm of lower-inner quadrant of right breast of female, estrogen receptor positive [place] Start: 03-03-2024 End: 03-03-2024 ambulatory [facility] Start: 03-02-2024 End: 03-02-2024 Telephone encounter Arlet Selby [facility] Allen garcia Comment on above: critical lab Start: 02-29-2024 End: 03-17-2024 Telephone encounter Joya Gray CMA [facility] Start: 02-26-2024 End: 02-26-2024 Evaluation and management of inpatient [facility] Start: 02-26-2024 End: 02-26-2024 Evaluation and management of inpatient [facility] Start: 02-25-2024 End: 02-25-2024 [facility] Start: 02-23-2024 End: 02-25-2024 Telephone encounter Graciela Borges CMA [facility] garcia Comment on above: Post-op Problem Start: 02-19-2024 ambulatory Sandrita WILLETT Facility:[facility] Start: 02-17-2024 End: 02-17-2024 ambulatory [facility] Start: 02-16-2024 End: 02-16-2024 ambulatory HERMAN LUI [facility] Start: 02-15-2024 End: 02-15-2024 Office outpatient visit 15 minutes Evan Thompson DO Work Phone: [facility] Comment on above: Encounter to discuss procedure Start: 02-15-2024 End: 02-15-2024 ambulatory EVAN JAY Not Available Start: 02-15-2024 End: 02-15-2024 Bamboo flowsheet Evan Jay DO Work Phone: [facility] Start: 02-15-2024 End: 02-15-2024 Bamboo flowsheet Evan Jay DO Work Phone: [facility] Start: 02-11-2024 End: 02-11-2024 Patient encounter procedure Randy Furlong DO Work Phone: [facility] Work Phone: Start: 02-10-2024 End: 02-10-2024 Telephone encounter Yves Coffey MD Work Phone: [facility] Start: 02-10-2024 Registered Recurring Randy Fu rlong DO [facility] Work [facility]: Start: 02-08-2024 Non-patient / Non-visit Randy Furlong DO Work Phone: [facility] Work Phone: Start: 02-01-2024 End: 02-01-2024 ambulatory YVES COFFEY Not Available Start: 02-01-2024 End: 02-01-2024 Bamboo flowsекатерина Coffey MD Work Phone: [facility] Start: 02-01-2024 End: 02-01-2024 Bamboo flowsекатерина Coffey MD Work Phone: [facility] Start: 02-01-2024 Non-patient / Non-visit Randy Furlong DO Work Phone: [facility] Work Phone: Start: 01-27-2024 Non-patient / Non-visit Randy Furlong DO Work Phone: [facility] Work Phone: Start: 01-27-2024 End: 01-27-2024 Bamboo flowsекатерина Coffey MD Work Phone: [facility] Start: 01-27-2024 End: 01-27-2024 Bamboo flowsекатерина Coffey MD Work Phone: [facility] Start: 01-27-2024 End: 01-27-2024 ambulatory YVES COFFEY Not Available Start: 01-26-2024 End: 01-27-2024 Patient encounter procedure Yves Coffey MD Work Phone: [facility] Comment on above: Anaphylaxis, subsequ ent encounter (Primary Dx) Start: 01-25-2024 End: 01-25-2024 Bamboo flowsекатерина Coffey MD Work Phone: [facility] Start: 01-25-2024 End: 01-25-2024 Bamboo flowsекатерина Coffey MD Work Phone: [facility] Start: 01-25-2024 End: 01-25-2024 Office outpatient new 60 minutes Yves Coffey MD Work Phone: [facility] Comment on above: Adverse effect of do xycycline, initial encounter (Primary Dx) Start: 01-25-2024 End: 01-25-2024 ambulatory YVES COFFEY Not Available Start: 01-19-2024 Non-patient / Non-visit Randy Furalannang DO Work Phone: [facility] Ambulatory Work Phone: Start: 01-15-2024 End: 01-15-2024 ambulatory GENERIC RESEARCH [facility] Start: 01-15-2024 End: 01-15-2024 ambulatory HERMAN [facility] Start: 01-14-2024 Non-patient / Non-visit Randy Furalannang DO Work Phone: [facility] Work Phone: Start: 01-13-2024 Non-patient / Non-visit Randy Furlong DO Work Phone: [facility] Work Phone: Start: 12-30-2023 End: 12-30-2023 [...] eye (CMS/HCC) Start: 12-30-2023 End: 12-30-2023 ambulatory [facility] Start: 12-29-2023 Non-patient / Non-visit Randy Furlong DO Work Phone: [facility] Work Phone: Start: 12-29-2023 Registered Recurring DO Randy Furlong Work Phone: [facility] Acute Work Phone: Start: 12-29-2023 End: 12-29-2023 ambulatory DO Randy Furlong Work Phone: [facility] Work Phone: Start: 12-29-2023 End: 12-29-2023 Patient encounter procedure DO Randy Furlong Work Phone: [facility] Work Phone: Start: 12-29-2023 End: 12-29-[address] [facility] Start: 12-29-2023 End: 12-29-2023 Postop follow up visit related to original px Shereen Smallwood PA-C Work Phone: [facility] Comment on above: Infection of deep in cisional surgical site after procedure, subsequent encounter (Primary Dx); Malignant neoplasm of lower-inner quadrant of right breast of female, estrogen receptor positive (CMS-HCC) Start: 12-28-2023 End: 12-28-2023 Emergency department patient visit Rusty Horton [facility] Start: 12-21-2023 End: 12-21-[address] [facility] Start: 12-21-2023 End: 12-21-2023 Postop follow up visit related to original px Marisela Cuevas REFLOW OPERATOR-RETURNED CASE INSPECTOR Work Phone: [facility] Comment on above: Encounter for postop erative care (Primary Dx); Acquired absence of breast, bilateral; S/P breast reconstruction, bilateral Start: 12-16-2023 End: 12-16-2023 Telephone encounter Deborah Wills CMA PHN [facility] Start: 12-14-2023 End: 12-14-2023 Postop follow up visit related to original px Marisela Cuevas REFLOW OPERATOR-RETURNED CASE INSPECTOR Work Phone: [facility] Comment on above: Encounter for postop erative care (Primary Dx); Acquired absence of breast, bilateral; S/P breast reconstruction, bilateral; Infection of breast implant, subsequent encounter Malignant neoplasm o f lower-inner quadrant of right breast of female, estrogen receptor positive (CMS-HCC) (Primary Dx) Start: 12-14-2023 End: 12-14-2023 [facility] Start: 12-11-2023 End: 12-14-2023 Telephone encounter [facility]ela [facility]rios RN [facility] Comment on above: Transition Of Care Start: 12-11-2023 End: 12-11-2023 ambulatory SANDRITA HINDSIS [facility] Start: 12-09-2023 End: 12-09-2023 Telephone encounter Nabila Mej[facility]a [facility] Start: 12-08-2023 End: 12-08-2023 Orders Only Gino Munguia REFLOW OPERATOR-RETURNED CASE INSPECTOR Work Phone: [facility] Comment on above: Acid fast bacillus ( Primary Dx); 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 Start: 12-05-2023 End: 12-09-2023 Evaluation and management of inpatient LILIANE VALLE [facility] Start: 12-04-2023 End: 12-09-2023 Evaluation and management of inpatient EPIFANIO HENRY [facility] Start: 12-03-2023 End: 12-03-2023 Orders Only Gino Munguia APRN-RETURNED CASE INSPECTOR Work Phone: [facility] Comment on above: Acid fast bacillus ( Primary Dx) Start: 12-02-2023 End: 12-09-2023 Evaluation and management of inpatient RICHIE [facility] Comment on above: MIRNA (acute kidney in jury) (CMS-HCC) (Primary Dx); Infection of deep incisional surgical site after procedure, initial encounter; 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; Infection of deep incisional surgical site after procedure, subsequent encounter Start: 12-02-2023 End: 12-02-2023 Documentation procedure Gino Munguia APRN-RETURNED CASE INSPECTOR Work Phone: [facility] Start: 12-02-2023 End: 12-02-2023 Telephone encounter Elisa [facility]lejo [facility] Comment on above: Transition Of Care Fever Start: 12-02-2023 End: 12-02-2023 ambulatory JHON ROSADO [facility] Start: 12-02-2023 End: 12-02-2023 Postop follow up visit related to original px Jhon Rosado MD Work Phone: [facility] Comment on above: Encounter for postop erative care (Primary Dx); Acquired absence of breast, bilateral; S/P breast reconstruction, bilateral; Infection of breast implant, subsequent encounter Start: 12-01-2023 End: 12-01-2023 ambulatory DO Randy Calle Work Phone: [facility] Work Phone: Start: 12-01-2023 End: 12-01-2023 [facility] Work Phone: Start: 11-30-2023 End: 11-30-2023 [facility] Start: 11-28-2023 End: 11-28-2023 Telephone encounter [facility] Allen garcia Comment on above: Medication Reaction Start: 11-26-2023 End: 11-30-2023 ambulatory [facility] Start: 11-26-2023 End: 11-26-2023 Postop follow up visit related to original px Jhon Rosado MD Work Phone: [facility] Comment on above: Cellulitis of left b reast (Primary Dx); S/P breast reconstruction, bilateral Start: 11-26-2023 End: 11-26-2023 ambulatory [facility] Start: 11-25-2023 End: 11-25-2023 [facility] Start: 11-25-2023 End: 11-25-2023 Postop follow up visit related to original px Marisela A Cuevas REFLOW OPERATOR-RETURNED CASE INSPECTOR Work Phone: [facility] Comment on above: Encounter for postop erative care (Primary Dx); Acquired absence of breast, bilateral Start: 11-25-2023 End: 11-25-[address] [facility] Start: 11-18-2023 End: 11-18-2023 Postop follow up visit related to original px Marisela A Cuevas REFLOW OPERATOR-RETURNED CASE INSPECTOR Work Phone: [facility] Comment on above: Encounter for postop erative care (Primary Dx); Malignant neoplasm of lower-inner quadrant of right breast of female, estrogen receptor positive (CMS-HCC); Acquired absence of breast, bilateral; S/P breast reconstruction, bilateral Start: 11-18-2023 End: 11-18-2023 [facility] Start: 11-11-2023 End: 11-11-2023 Postop follow up visit related to original Marisela Cuevas REFLOW OPERATOR-RETURNED CASE INSPECTOR Work Phone: [facility] Comment on above: Encounter for postop erative care (Primary Dx); S/P breast reconstruction, bilateral; Malignant neoplasm of lower-inner quadrant of right breast of female, estrogen receptor positive (CMS-HCC); Acquired absence of breast, bilateral Start: 11-11-2023 End: 11-11-2023 [facility] Start: 11-04-2023 End: 11-04-2023 Postop follow up visit related to original Marisela Eason Cuevas REFLOW OPERATOR-RETURNED CASE INSPECTOR Work Phone: [facility] Comment on above: Encounter for postop erative care (Primary Dx); Malignant neoplasm of lower-inner quadrant of right breast of female, estrogen receptor positive (CMS-HCC); Acquired absence of breast, bilateral; S/P breast reconstruction, bilateral Start: 11-04-2023 End: 11-04-2023 [facility] Start: 10-30-2023 End: 10-30-2023 Evaluation and management of inpatient [facility] Start: 10-28-2023 End: 10-30-2023 Evaluation and management of inpatient [facility] Start: 10-28-2023 End: 10-29-2023 [facility] Start: 10-28-2023 End: 10-30-2023 Evaluation and management of inpatient [facility] Start: 10-27-2023 End: 10-27-2023 ambulatory [facility] Start: 10-23-2023 End: 10-23-2023 Social Work Valentine Kongveena [facility] - Radiation Oncology Start: 10-20-2023 End: 10-20-2023 Social Work [address]veena [facility] - Radiation Oncology Start: 10-16-2023 End: 10-16-2023 Documentation procedure [facility]ton [facility] [place] [facility] Start: 10-16-2023 End: 10-16-2023 ambulatory BRE SANCHEZ [facility] Start: 10-16-2023 End: 10-16-2023 ambulatory CHRISTY Eason [facility] Start: 10-16-2023 End: 10-16-[address] [facility] Start: 10-14-2023 End: 10-16-2023 Social Work Valentinealin Goldberg [facility] Radiation Oncology Start: 10-01-2023 End: 10-01-2023 ambulatory DO Randy Furlong Work Phone: [facility] Work Phone: Start: 10-01-2023 End: 10-01-2023 Patient encounter procedure DO Randy Furlong Work Phone: [facility] Work Phone: Start: 10-01-2023 Registered Recurring DO Randy Furlong Work Phone: [facility] Work Phone: Start: 09-29-2023 End: 09-29-2023 [address] Work [address]ve[address] [facility] - Radiation Oncology Start: 09-28-2023 End: 10-07-2023 Telephone encounter Richie Hanna REFLOW OPERATOR-RETURNED CASE INSPECTOR Work Phone: [facility] Start: 09-14-2023 End: 09-15-2023 Refill Richie Hanna REFLOW OPERATOR-RETURNED CASE INSPECTOR Work Phone: [facility] Start: 09-04-2023 End: 09-04-2023 ambulatory CHRISTY HE [facility] Start: 08-31-2023 End: 08-31-2023 ambulatory [facility] Start: 08-20-2023 End: 08-27-2023 Social Work [facility] - Radiation Oncology Start: 08-20-2023 End: 08-20-2023 Office outpatient new 45 minutes Jhon Rosado MD Work Phone: [facility] Comment on above: Malignant neoplasm o f lower-inner quadrant of right breast of female, estrogen receptor positive (CMS-HCC) Start: 08-06-2023 End: 08-06-2023 Social Work [facility] - Radiation Oncology Start: 08-03-2023 End: 08-03-2023 Social Work [facility] - Radiation Oncology Start: 07-30-2023 End: 07-30-2023 ambulatory CHRISTY Yumi HE [facility] Start: 07-30-2023 End: 07-30-2023 Office outpatient visit 40 minutes Christy He MD Work Phone: [facility] Comment on above: Malignant neoplasm o f lower-inner quadrant of right breast of female, estrogen receptor positive (CMS-HCC) (Primary Dx) Start: 06-04-2023 End: 06-04-2023 ambulatory Sandrita WILLETT Facility:[facility] Start: 06-04-2023 End: 06-04-2023 Patient encounter procedure Sandrita WILLETT [facility] [place] Start: 06-01-2023 End: 06-01-2023 ambulatory EVAN THOMPSON Not Available Start: 05-26-2023 Patient encounter procedure Georgiana Justice DO Work Phone: [facility] Training Intelligence Start: 05-26-2023 ambulatory Sandrita RODRIGUEZL Facility:[facility] Start: 05-21-2023 [facility]mission to [facility] Yue Tellez REFLOW OPERATOR-RETURNED CASE INSPECTOR Work Phone: [facility] Start: 05-21-2023 ambulatory Yue huggins REFLOW OPERATOR-RETURNED CASE INSPECTOR Work Phone: [facility] Start: 05-14-2023 Telephone encounter Niurka Stockton RN [facility] [facility] Start: 05-13-2023 End: 05-13-2023 ambulatory Sandrita Garcia BRENNON Facility:[facility] Start: 05-12-2023 Telephone encounter Ike Irvin RN [facility] [place] [facility] Start: 05-08-2023 Documentation procedure Niurka dorman RN [facility] [place] [facility] Start: 05-08-2023 End: 05-08-2023 ambulatory JOHN [facility] Start: 05-08-2023 End: 05-08-2023 ambulatory [facility] Start: 05-08-2023 End: 05-08-2023 ambulatory [facility] Start: 04-28-2023 End: 04-28-2023 Office outpatient new 60 minutes Christy He MD Work Phone: [facility] Comment on above: Malignant neoplasm o f lower-inner quadrant of right breast of female, estrogen receptor positive (CMS-HCC) (Primary Dx); Mass of lower inner quadrant of right breast Start: 04-24-2023 End: 04-24-2023 [facility] Start: 04-14-2023 End: 04-14-2023 ambulatory [facility] Start: 04-10-2023 End: 04-10-2023 Patient encounter procedure Sandrita Garcia BRENNON General Surgery Nill/Daniel Palacios Start: 04-10-2023 ambulatory RICHIE HANNA [facility] Start: 04-06-2023 End: 04-06-2023 Patient encounter procedure Chantal Bear [facility] Start: 04-02-2023 End: 04-02-2023 Office outpatient visit 15 minutes Evan Thompson DO Work Phone: [facility] Comment on above: Mammogram abnormal; Invasive ductal carcinoma of breast, right ([facility]/HCC) Start: 03-26-2023 End: 03-26-2023 ambulatory DO Randy Hallmagalys Work Phone: [facility] Work Phone: Start: 03-26-2023 End: 03-26-2023 Departed Referred DO Randy Hallalannang Work Phone: [facility] Start: 03-20-2023 End: 03-20-2023 Patient encounter procedure BRITTANI SANTOS [facility] Start: 10-15-2022 Chart Update Randylinnea Hallalanna stewart Work Phone: [facility] 250 DO Work Phone: Start: 10-14-2022 ambulatory BRITTANI SANTOS Facili ty:[id number] Start: 09-29-2022 Patient encounter procedure Randy Jaramillo Alva Work Phone: [facility] 250 DO Work Phone: Start: 09-29-2022 ambulatory Ms. Brittani Santos Facility: Start: 09-12-[address] Shanon Tyler II Facility: Start: 09-12-2022 Office outpatient vi sit 5 minutes Randy Calle Work Phone: [facility] 250 DO Work Phone: Start: 08-22-[address] Shanon Tyler II Facility: Start: 08-22-2022 Office outpatient vi sit 5 minutes Randy Cantung Work Phone: [facility] DO Work Phone: Start: 08-18-2022 Chart Update Randy Cantu ng Work Phone: [facility] 250 DO Work Phone: Start: 08-15-2022 End: 08-15-2022 Patient encounter procedure Shanon Tyler [facility] Start: 07-21-[address] Shanon Tyler II Facility: Start: 07-14-2022 End: 07-14-2022 Patient encounter procedure Reid Bauer [facility] Start: 12-27-2021 End: 12-27-[address] DAYANA BASHIR Facility:[facility] Start: 12-13-2021 End: 12-14-[address] KAYE MANUEL Facility:[facility] Start: 11-22-2021 End: 11-22-2021 ambulatory Hua Oglesby Facility:[facility] Start: 11-11-2021 End: 11-11-2021 ambulatory Jseusita Gee Other [facility] Other Start: 11-11-2021 Office outpatient vi sit 15 minutes Jesusita Gee [facility] Start: 08-26-2021 End: 08-28-2021 ambulatory Hua [place]ston Facility:[facility] Start: 08-22-2021 End: 08-22-2021 ambulatory [facility] Facility:[facility] Start: 08-13-2021 End: 08-13-2021 ambulatory [facility] Facility:[facility] Start: 01-21-2021 End: 01-21-2021 ambulatory [facility] Facility:[facility] Start: 01-04-2021 End: 01-05-2021 ambulatory [facility] Facility: [facility] Procedures Date Procedure Procedure Detail Performing Clinician Start: 04-13-2024 AUDITORY FUNCTION TESTS Nasreen Li [facility] Work Phone: Start: 04-07-2024 ALL CBC WITH AUTO DIFF Evan Thompson DO Work Phone: Start: 03-30-2024 Adult depression screening assessment Marisela Cuevas REFLOW OPERATOR-RETURNED CASE INSPECTOR Work Phone: Start: 12-09-2023 Comprehensive metabo lic panel Chris Hollis PA-C Work Phone: Start: 12-08-2023 Potassium serum plasma/whole blood Amy Jack MD Work Phone: Start: 12-08-2023 Assay of magnesium Amy dennison MD Work Phone: Start: 12-08-2023 Comprehensive metabo lic panel Chris Hollis PA-C Work Phone: Start: 12-07-2023 Comprehensive metabo lic panel Chris Hollis PA-C Work Phone: Start: 12-06-2023 Assay of magnesium Radha Valle REFLOW OPERATOR-RETURNED CASE INSPECTOR Work Phone: Start: 12-06-2023 Urnls dip stick/tabl et rgnt auto w/o microscopy Liliane Valle REFLOW OPERATOR-RETURNED CASE INSPECTOR Work Phone: Start: 12-06-2023 Comprehensive metabo lic panel Chris Hollis PA-C Work Phone: Start: 12-05-2023 Assay of magnesium Radha Valle REFLOW OPERATOR-RETURNED CASE INSPECTOR Work Phone: Start: 12-05-2023 Radiologic exam ches t single view Liliane Valle REFLOW OPERATOR-RETURNED CASE INSPECTOR Work Phone: Start: 12-05-2023 RESP PATHOGENS PANEL/SARS-COV-2 Liliane Valle REFLOW OPERATOR-RETURNED CASE INSPECTOR Work Phone: Start: 12-05-2023 End: 12-05-2023 Culture bacterial blood aerobic w/id isolates Carlene Noguera MD Work Phone: Start: 12-05-2023 Comprehensive metabo lic panel Chris Hollis PA-C Work Phone: Start: 12-04-2023 Cyanocobalamin vitam in b-12 Elayne Chow MD Work Phone: Start: 12-04-2023 Us retroperitoneal r eal time w/image complete Epifanio Henry MD Work Phone: Start: 12-04-2023 Comprehensive metabo lic panel Chris Hollis PA-C Work Phone: Start: 12-03-2023 Assay of urine sodium R shena Henry MD Work Phone: Start: 12-03-2023 Urnls dip stick/tabl et rgnt auto w/o microscopy Epifanio Henry MD Work Phone: Start: 12-03-2023 Antinuclear antibodi es justin Epifanio Henry MD Work Phone: Start: 12-03-2023 Creatine kinase total R shena Henry MD Work Phone: Start: 12-03-2023 Assay of magnesium Radha Valle REFLOW OPERATOR-RETURNED CASE INSPECTOR Work Phone: Start: 12-03-2023 Ecg routine ecg w/le ast 12 lds trcg only w/o i&r Carlene Noguera MD Work Phone: Start: 12-03-2023 Comprehensive metabo lic panel Chris Hollis PA-C Work Phone: Start: 12-03-2023 DIFFERENTIAL ADD ON USE ONLY Chris Hollis PA-C Work Phone: Start: 12-03-2023 Drug screen quantita tive vancomycin Chris Hollis PA-C Work Phone: Start: 12-02-2023 End: 12-02-2023 Culture bacterial quanttative colony count urine Nilsonmeganlashawn Edmonds Odilia DO Work Phone: Start: 12-02-2023 Urnls dip stick/tabl et rgnt auto w/o microscopy Kayleigh Edmonds Odilia DO Work Phone: Start: 12-02-2023 End: 12-02-2023 Comprehensive metabolic panel Kayleigh Edmonds Odilia DO Work Phone: Start: 10-16-2023 Mammography Georgiana bangura DO Work Phone: Start: 07-30-2023 Follow-up visit Follow-up CHRISTY HE Start: 06-01-2023 Microscopic observat ion [Identifier] in Cervix by Cyto stain Evan Jay DO Work Phone: Start: 06-01-2023 Cytp cerv/vag auto t hin layer prep mnl screen Evan Jay DO Work Phone: Start: 03-07-2022 Adult depression screening assessment Niurka Stockton RN Start: 12-27-2021 Mammography Evan Fazi o DO Work Phone: Start: 12-27-2021 Microscopic observat ion [Identifier] in Cervix by Cyto stain Georgiana Justice DO Work Phone: Start: 03-02-2005 Hysterectomy Reid Coatsmargarita mcfarland Abdominal hysterectomy [place] Clarke Biopsy of breast Sandrita NIL L Chondrectomy of semi lunar cartilage of knee Moghazala Bear Core needle biopsy o f breast using ultrasound guidance Moghazala Bear Excision of breast Rusty mcgowan Excisional biopsy of breast Randy Calle Work Phone: Hysterectomy Randy jaramillo Work Phone: Insertion of implant able venous access port Sandrita RODRIGUEZWilliam Lipoma of back (disorder) Cleve Bauer Repair of anterior cruciate ligament of knee joint Moghazala Bear [facility] Transurethral cystoscopy Haydee shauna Bear NEGATED: Highlighted row has not occurred! Total colonoscopy Randy Calle Work Phone: Plan of Treatment Date Care Activity Detail Author Start: 05-31-2028 Screening for malignant neoplasm of cervix [facility] Start: 07-08-2027 DTaP,Tdap and Td Vaccines (2 - Td or Tdap) DTaP,Tdap and Td Vaccines (2 - Td or Tdap) [facility] Start: 12-27-2026 Screening for malignant neoplasm of cervix [facility] Start: 04-20-2025 Adult BMI Screening Adult BMI Screening [facility] Start: 04-20-2025 Tobacco Screening Tobacco Screening [facility] Start: 04-13-2025 Adult BMI Screening Adult BMI Screening [facility] Start: 04-13-2025 Tobacco Screening Tobacco Screening [facility] Start: 03-30-2025 Adult BMI Screening Adult BMI Screening [facility] Start: 03-30-2025 Depression Screening Depression Screening [facility] Start: 03-21-2025 Tobacco Screening [facility]ening [facility] Start: 03-10-2025 Adult BMI Screening Adult BMI Screening [facility] Start: 03-10-2025 Tobacco Screening Tobacco Screening [facility] Start: 02-25-2025 Adult BMI Screening Adult BMI Screening [facility] Start: 02-25-2025 Tobacco Screening Tobacco Screening [facility] Start: 12-13-2024 Adult BMI Screening Adult BMI Screening [facility] Start: 12-13-2024 Tobacco Screening Tobacco Screening [facility] Start: 12-04-2024 Adult BMI Screening Adult BMI Screening [facility] Start: 12-02-2024 Adult BMI Screening Adult BMI Screening [facility] Start: 12-01-2024 Adult BMI Screening Adult BMI Screening [facility] Start: 12-01-2024 Tobacco Screening Tobacco Screening [facility] Start: 11-27-2024 Adult BMI Screening Adult BMI Screening [facility] Start: 11-26-2024 Tobacco Screening Tobacco Screening [facility] Start: 10-27-2024 Adult BMI Screening Adult BMI Screening [facility] Start: 10-27-2024 Tobacco Screening Tobacco Screening [facility] Start: 10-15-2024 Adult BMI Screening Adult BMI Screening [facility] Start: 10-15-2024 Screening for malignant neoplasm of breast Mammogram [facility] Start: 10-15-2024 Tobacco Screening Tobacco Screening [facility] Start: 09-03-2024 Adult BMI Screening Adult BMI Screening [facility] Start: 08-19-2024 Adult BMI Screening Adult BMI Screening [facility] Start: 08-19-2024 Tobacco Screening Tobacco Screening [facility] Start: 07-29-2024 Adult BMI Screening Adult BMI Screening [facility] Start: 07-29-2024 Tobacco Screening Tobacco Screening [facility] Start: 06-08-2024 End: 06-08-2024 Patient encounter procedure 06/08/2024 3:00 PM EDT Office Visit [facility] [address] [place] [phone] Andree Asencio PA [address] [place] [address] [facility] Start: 06-06-2024 Screening for malignant neoplasm of colon [facility] Start: 06-01-2024 End: 06-01-2024 Patient encounter procedure 06/01/2024 11:00 AM EDT Office Visit [facility] [address] [place] [address] Evan Thompson DO [address] [place] [address] [facility] Start: 05-26-2024 End: 05-26-2024 Admission to same day surgery center 05/26/2024 10:15 AM EDT - 05/26/2024 12:45 PM EDT Surgery [facility] [address] [place] [phone] [place] [address] [place] [address], [address] [place] [address] DAVINCI EXCISION LYMPH NODE ABDOMINAL REGION(EXCISION PELVIC MASS) [86690 (CPT )] [facility] Comment on above: DAVINCI EXCISION LYMPH NODE ABDOMINAL RE GION(EXCISION PELVIC MASS) [70597 (CPT )] Start: 05-26-2024 Subsequent hospital visit by physician 05/26/2024 10:15 AM EDT Hospital Encounter [facility] [address] [place] [phone] [place] [address] [place] [address] Road, [address] [place] [address] [facility] Start: 05-26-2024 End: 05-26-2024 Unlisted laparoscopic px abd pertoneum & omentum DAVINCI EXCISION LYMPH NODE ABDOMINAL REGION PELVIC MASS LEFT SIDED 05/26/2024 10:15 AM EDT [facility] Start: 05-12-2024 End: 05-12-2024 Admission to establishment 05/12/2024 2:45 PM EDT Support Visit [facility] [address] [place] [address], [place] [address] [facility] Start: 05-05-2024 Adult BMI Screening Adult BMI Screening [facility] Start: 05-02-2024 End: 05-02-2024 Rmvl henry ctr vad w/subq port/manager channel ctr/prph insj [facility] Start: 04-28-2024 End: 04-28-2024 Patient encounter procedure 04/28/2024 3:15 PM EST Office [facility] [address] [place] [phone] Jhon Rosado MD [address] [place] [address] [facility] Start: 04-28-2024 Tobacco Screening Tobacco Screening [facility] Start: 04-21-2024 End: 04-21-2024 Patient encounter procedure 04/21/2024 11:30 AM EST Office Visit [facility] [address] [place] [address] Evan Thompson DO [address] [place] [address] [facility] Start: 04-20-2024 End: 04-20-2024 Patient encounter procedure 04/20/2024 1:00 PM EST Office Visit [facility] [address] [place] [address] Marisela Cuevas, REFLOW OPERATOR-RETURNED CASE INSPECTOR [address] [place] [phone] [facility] Start: 04-15-2024 End: 04-15-2024 Patient encounter procedure 04/15/2024 11:30 AM EST Office Visit [facility] [address] [facility] [address] [place] [address] Marisela Cuevas, [facility] [address], [facility] [address] [place] [address] [facility] Start: 03-21-2024 End: 03-21-2024 Admission to same day surgery center 03/21/2024 3:30 PM EST - 03/21/2024 5:15 PM EST Surgery [facility] [address] [place] [address] Jhon Rosado MD [address], [facility] [address] [place] [address] EXCISION SOFT TISSUE BREAST - EXC REDUNDANT CHEST WALL TISSUE [07359 (CPT )] [facility] - Surgery Comment on above: EXCISION SOFT TISSUE BREAST - EXC REDUND ANT CHEST WALL TISSUE [15490 (CPT )] Start: 03-21-2024 End: 03-21-2024 Excision excessive skin & subq tissue other area EXCISION SOFT TISSUE BREAST LT CHEST WOUND 03/21/2024 3:30 PM EST [facility] Start: 03-21-2024 End: 03-21-2024 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 tiss professional wrestler w/o insertion prosthesis REMOVAL SAW CLEANER TISSUE BREAST LT CHEST WOUND 03/21/2024 3:30 PM EST [facility] Start: 03-21-2024 Subsequent hospital visit by physician 03/21/2024 3:30 PM EST Hospital Encounter [facility] Surgery [address] [place] [address] Jhon Rosado MD [address], [address] [place] [address] [facility] Start: 03-15-2024 End: 03-15-2024 Patient encounter procedure [facility] Start: 03-04-2024 End: 03-04-2024 Patient encounter procedure 03/04/2024 10:30 AM EST Office Visit [facility] [address] [place] [address] Shereen Smallwood PA-C [address] [place] [address] [facility] Start: 03-03-2024 End: 03-03-2024 Patient encounter procedure 03/03/2024 12:30 PM EST Office Visit [facility] [address] [place] [address] Jhon Rosado MD [address] [place] [address] [facility] Start: 02-26-2024 End: 02-26-2024 Admission to same day surgery center 02/26/2024 11:30 AM EST - 02/26/2024 1:00 PM EST Surgery [facility] Surgery [address] [place] [address] Jhon Rosado MD [address] [place] [address] INCISION DRAINAGE BREAST (WASHOUT) [facility] Surgery Comment on above: INCISION DRAINAGE BREAST (WASHOUT) Start: 02-26-2024 End: 02-26-2024 CLOSURE WOUND MIDSECTION CLOSURE WOUND MIDSECTION LEFT BREAST WOUND 02/26/2024 11:30 AM EST [facility] Start: 02-26-2024 End: 02-26-2024 INCISION DRAINAGE BREAST INCISION DRAINAGE BREAST LEFT BREAST WOUND 02/26/2024 11:30 AM EST [facility] Start: 02-26-2024 Subsequent hospital visit by physician 02/26/2024 11:30 AM EST Hospital Encounter [facility] Surgery [address] [place] [address] Jhon Rosado MD [address] [facility] [place] [phone] [facility] Start: 02-15-2024 End: 02-15-2024 Patient encounter procedure [facility] Comment on above: Arrived Start: 01-25-2024 End: 01-25-2024 Patient encounter procedure 01/25/2024 10:00 AM EST Office Visit [facility] [address] [facility] [address] [place] [phone] Yves Coffey MD [address] [place] [address] Arrived [facility] Comment on above: Arrived Start: 12-21-2023 End: 12-21-2023 Patient encounter procedure 12/21/2023 1:30 PM EDT Office Visit [facility] [address] [place] [phone] Marisela Cuevas, REFLOW OPERATOR-RETURNED CASE INSPECTOR [address] [place] [address] [facility] Start: 12-15-2023 End: 12-15-2023 Patient encounter procedure 12/15/2023 10:30 AM EDT Office Visit [facility] [address] [place] [address] Marisela Cuevas, [facility] [address] [place] [address] [facility] Start: 12-14-2023 End: 12-14-2023 Patient encounter procedure 12/14/2023 2:00 PM EDT Office Visit [facility] [address] [place] [address] Suzette Mason PA [address] [place] [phone] [facility] Start: 12-08-2023 End: 12-08-2023 Patient encounter procedure [facility] Start: 12-04-2023 End: 12-04-2023 Patient encounter procedure 12/04/2023 11:00 AM EDT Office Visit [facility] [address] [place] [address] Marisela Cuevas, [facility] [address] [place] [address] [facility] Start: 12-01-2023 Patient referral [facility] Work Phone: Start: 11-26-2023 End: 11-26-2023 Patient encounter procedure 11/26/2023 11:45 AM EDT Office Visit [facility] [address] [place] [address] Jhon Rosado MD [address], [address] [place] [address] [facility] Start: 11-25-2023 End: 11-25-2023 Patient encounter procedure 11/25/2023 3:00 PM EDT Office Visit [facility] [address] [place] [address] Marisela Cuevas, REFLOW OPERATOR-RETURNED CASE INSPECTOR [address] [place] [address] [facility] Start: 11-18-2023 End: 11-18-2023 Patient encounter procedure 11/18/2023 11:30 AM EDT Office Visit [facility] [address] [place] [address] Marisela Cuevas, REFLOW OPERATOR-RETURNED CASE INSPECTOR [address], [address] [place] [address] [facility] Start: 11-11-2023 End: 11-11-2023 Patient encounter procedure 11/11/2023 1:30 PM EDT Office Visit [facility] [address] [place] [address] Marisela Cuevas, REFLOW OPERATOR-RETURNED CASE INSPECTOR [address] [place] [address] [facility] Start: 11-04-2023 End: 11-04-2023 Patient encounter procedure 11/04/2023 11:00 AM EDT Office Visit [facility] [address] [place] [address] Marisela Cuevas, REFLOW OPERATOR-RETURNED CASE INSPECTOR [address] [place] [address] [facility] Start: 11-01-2023 COVID-19 Vaccine ( season) COVID-19 Vaccine ( season) [facility] Start: 11-01-2023 COVID-19 Vaccine ( season) COVID-19 Vaccine ( season) [facility] Start: 11-01-2023 Influenza vaccination [facility] Start: 10-28-2023 End: 10-28-2023 Adjnt tis trnsfr/reargmt any area 30.1-60 sq cm [facility] Start: 10-28-2023 End: 10-28-2023 Admission to same day surgery center 10/28/2023 7:30 AM EDT - 10/28/2023 11:30 AM EDT Surgery [facility] - Surgery [address] [place] [phone] Christy He MD [address] [phone] MASTECTOMY BREAST SIMPLE SKIN SPARING [facility] - Surgery Comment on above: MASTECTOMY BREAST SIMPLE SKIN SPARING Start: 10-28-2023 End: 10-28-2023 Brst rcnstj immt/dlyd w/tiss professional wrestler sbsq xpnsj EXCHANGE SAW CLEANER TISSUE BREAST INVASIVE CARCINOMA RIGHT DESIRE FOR CONTRALATERAL RISK REDUCTION 10/28/2023 7:30 AM EDT [facility] Start: 10-28-2023 End: 10-28-2023 EXCISION LYMPH NODE AXILLARY EXCISION LYMPH NODE AXILLARY INVASIVE CARCINOMA RIGHT DESIRE FOR CONTRALATERAL RISK REDUCTION 10/28/2023 7:30 AM EDT [facility] Start: 10-28-2023 End: 10-28-2023 MAGNETIC SEED LOCALIZATION EXCISION/BIOPSY MASS BREAST MAGNETIC SEED LOCALIZATION EXCISION/BIOPSY MASS BREAST INVASIVE CARCINOMA RIGHT DESIRE FOR CONTRALATERAL RISK REDUCTION 10/28/2023 7:30 AM EDT [facility] Start: 10-28-2023 End: 10-28-2023 MASTECTOMY BREAST SIMPLE MASTECTOMY BREAST SIMPLE INVASIVE CARCINOMA RIGHT DESIRE FOR CONTRALATERAL RISK REDUCTION 10/28/2023 7:30 AM EDT [facility] Start: 10-28-2023 End: 10-28-2023 Mastectomy simple complete MASTECTOMY BREAST SIMPLE RISK REDUCING INVASIVE CARCINOMA RIGHT DESIRE FOR CONTRALATERAL RISK REDUCTION 10/28/2023 7:30 AM EDT [facility] Start: 10-28-2023 Subsequent hospital visit by physician 10/28/2023 7:30 AM EDT Hospital Encounter [facility] - Surgery [address] [place] [phone] Christy He MD [address] [phone] [facility] Start: 10-16-2023 Subsequent hospital visit by physician 10/16/2023 2:00 PM EDT Hospital Encounter [facility] [address] [place] [address] [facility] Start: 10-16-2023 End: 10-16-2023 Patient encounter procedure 10/16/2023 11:00 AM EDT Procedure visit [facility] On [address] [address] [facility] Start: 09-04-2023 Subsequent hospital visit by physician 09/04/2023 12:45 PM EDT Hospital Encounter [facility] [address] [place] [address] [facility] St[facility] Start: 08-30-2023 End: 07-29-2024 MR Breast - bilateral WO and W contrast IV MR bilateral breast with and without contrast with CAD Imaging Routine Malignant neoplasm of lower-inner quadrant of right breast of female, estrogen receptor positive (CMS-HCC) Expected: 08/30/2023 (Approximate), Expires: 07/29/2024 [facility] Work Phone: Comment on above: Expected: 08/30/2023 (Approximate), Expi res: 07/29/2024 Start: 08-20-2023 End: 08-20-2023 Patient encounter procedure 08/20/2023 10:00 AM EDT Office Visit [facility] [address] [place] [address] [address] [place] [phone] Jhon Rosado MD [address] [facility] [address] [place] [phone] [facility] Start: 07-30-2023 End: 07-30-2023 Patient encounter procedure 07/30/2023 3:00 PM EDT Office Visit [facility] [address] [place] [address] [address] [place] [phone] Christy He MD [address] [facility] [address] [place] [phone] [facility] Start: 06-01-2023 End: 06-01-2023 Patient encounter procedure 06/01/2023 1:30 PM EDT Office Visit [facility] [address] [place] [address] Evan Thompson, DO [address] [place] [address] [place] [address] [facility] Start: 04-08-2023 FUV, Provider: Shanon Tyler, Status: Pen, Time: 2:50 PM FUV, Provider: Sahnon Tyler, Status: Pen, Time: 2:50 PM [facility] 250 DO Work Phone: Start: 03-07-2023 [facility] Start: 12-27-2022 Screening for malignant neoplasm of breast Mammogram [facility] Start: 10-31-2022 COVID-19 Vaccine ( season) COVID-19 Vaccine ( season) [facility] Start: 10-31-2022 Influenza vaccination [facility] Start: 09-29-2022 FUV, Provider: Brittani Avalos, Status: Pen, Time: 2:30 PM FUV, Provider: Brittani Avalos, Status: Pen, Time: 2:30 PM [facility] 250 DO Work Phone: Start: 09-18-2022 FUV, Provider: Shanon Tyler, Status: Pen, Time: 9:10 AM FUV, Provider: Shanon Tyler, Status: Pen, Time: 9:10 AM [facility] 250 DO Work Phone: Start: 09-12-2022 BPLM, Provider: ASHLEIGH MURGUIA FISHING ROD MECHANIC 1,[id number], Status: Pen, Time: 9:00 AM BPCHECK, Provider: ASHLEIGH MURGUIA FISHING ROD MECHANIC 1,[id number], Status: Pen, Time: 9:00 AM [facility] 250 DO Work Phone: Start: 08-22-2022 BPCHEJENN, Provider: ASHLEIGH MURGUIA FISHING ROD MECHANIC 1,[id number], Status: Pen, Time: 9:00 AM BPCHECK, Provider: ASHLEIGH MURGUIA FISHING ROD MECHANIC 1,[id number], Status: Pen, Time: 9:00 AM [facility] 250 DO Work Phone: Start: 2000 Screening for malignant neoplasm of cervix [facility] Start: 10-11-1991 Screening for malignant neoplasm of cervix Pap Smear [facility] Start: 1989 Administration of varicella zoster vaccine Zoster (Shingles) Vaccine (1 of 2) [facility] Start: 1988 Adult BMI Follow Up Plan Adult BMI Follow Up Plan [facility] Start: 1970 Screening for malignant neoplasm of colon [facility] End: 11-24-2024 Aspirate culture includes gram stain Aspirate culture includes gram stain Microbiology Routine Encounter for postoperative care Acquired absence of breast, bilateral 1 Occurrences starting 11/25/2023 until 11/24/2024 [employer] Work Phone: Comment on above: 1 Occurrences starting 11/25/2023 until 11/24/2024 Bacteria identified in Aspirate by Aerobe culture Aspirate culture includes gram stain Microbiology Routine Encounter for postoperative care Acquired absence of breast, bilateral 11/25/2023 6:05 PM EDT Indexing Bacteria identified in Blood by Aerobe culture [employer] Work Phone: End: 12-08-2024 CBC W Auto Differential panel - Blood CBC auto differential Lab Routine Infection of deep incisional surgical site after procedure, initial encounter Infection of deep incisional surgical site after procedure, subsequent encounter weekly for 4 Occurrences starting 12/09/2023 until 12/08/2024 [employer] Work Phone: Comment on above: weekly for 4 Occurrences starting 2023 until 12/08/2024 End: 12-08-2024 Comprehensive metabolic 2000 panel - Serum or Plasma Comprehensive metabolic panel Lab Routine Infection of deep incisional surgical site after procedure, initial encounter Infection of deep incisional surgical site after procedure, subsequent encounter weekly for 4 Occurrences starting 12/09/2023 until 12/08/2024 Indexing Comment on above: weekly for 4 Occurrences starting 2023 until 12/08/2024 Computed tomography for radiotherapy planning [facility] CT with contrast for radiotherapy planning [facility] Patient referral [facility] Work Phone: Immunizations Immunization Date Immunization Notes Care Provider Fa cility 12-06-2020 Covid-19, Mrna, Lnp-s, Pf, 30 Mcg/0.3 Ml Dose, Winston-sucrose [facility] 12-06-2020 SARS-CoV-2 (COVID-19 ) mRNA BNT-162b2 cyn [facility] Comment on above: Result Comment: 2022: [id number] 12-06-2020 SARS-COV-2 (COVID-19 ) Vaccine, Unspecified Niurka Stockton RN [facility] 11-15-2020 SARS-CoV-2 (COVID-19 ) mRNA BNT-162b2 vax Reid [facility] Comment on above: Result Comment: 2022: [id number] 11-20-2019 influenza virus vaccine, unspecified formulation [facility] Suzanne 11-14-2019 influenza virus vaccine, unspecified formulation Reid Coatspsey [facility] 11-14-2019 influenza, seasonal, injectable Randy G Furlong [facility] Work Phone: 12-13-2018 influenza virus vaccine, unspecified formulation Reid Coatspsey [facility] 12-13-2018 influenza, seasonal, injectable Randy G Furlong Work Phone: [facility] [employer] DO Work Phone: 12-10-2017 influenza virus vaccine, unspecified formulation Reid [facility] 12-10-2017 influenza, injectable, quadrivalent, contains preservative Randy G Furlong [facility] Work Phone: 07-07-2017 tetanus toxoid, reduced diphtheria toxoid, and acellular pertussis vaccine, adsorbed Reid [facility] 01-19-2017 influenza virus vaccine, unspecified formulation Reid Juancarlos [facility] 01-19-2017 influenza, injectable, quadrivalent, contains preservative Randy G Furlong Work Phone: [facility] 250 DO Work Phone: 01-07-2016 influenza virus vaccine, unspecified formulation [facility] 01-07-2016 influenza, injectable, quadrivalent, contains preservative Randy G Furlong Work Phone: [facility] 250 DO Work Phone: 12-01-2015 influenza virus vaccine, unspecified formulation Randy G Furlong Work Phone: [facility] 250 DO Work Phone: 12-01-2015 influenza, unspecified formulation Reid Coatspsey [facility] 12-27-2014 influenza virus vaccine, unspecified formulation [facility] 12-27-2014 influenza, injectable, quadrivalent, contains preservative Randy G Furlong Work Phone: [facility] 250 DO Work Phone: 12-06-2014 influenza, seasonal, injectable Niurka Stockton RN [facility] 01-05-2014 influenza virus vaccine, unspecified formulation [facility] 01-05-2014 influenza, injectable, quadrivalent, contains preservative Randy G Furlong Work Phone: [facility] 250 DO Work Phone: 12-29-2012 influenza virus vaccine, unspecified formulation [facility] 12-29-2012 influenza, seasonal, injectable Randy G Furlong Work Phone: [facility] 250 DO Work Phone: 01-17-2009 novel [id number], preservative-free, injectable Randy Calle Work Phone: [facility] 250 DO Work Phone: NEGATED: Highlighted row has not occurred!04-10-2023 influenza virus vaccine, unspecified formulation Sandrita WILLETT [facility] Suzanne Payers Date Payer Category Payer Self-pay [id number] 2023 Medicaid HMO [facility] [id number] 2023 Private Health Insurance [id number] 2023 Medicaid [id number] 2023 Private Health Insurance [id number] 2016 Unknown [id number] 1970 Unknown [id number] 2.16.840.1.373517.3.579. 2.718 1970 Unknown [id number] 2.16.840.1.759167.3.579. 2.718 1970 Unknown [id number] 2.16.840.1.346860.3.579. 2.718 1970 Unknown [id number] 2.16.840.1.022008.3.579. 2.718 1970 Unknown [id number] 2.16.840.1.279373.3.579. 2.71 1970 Unknown [id number] 2.16.840.1.806313.3.579. 2.71 1970 Unknown [id number] 2.16.840.1.481464.3.579. 2.71 1970 Unknown [id number] 2.16.840.1.688490.3.579. 2.593 1970 Unknown [id number] 2.16.840.1.252890.3.579. 2.593 1970 Unknown [id number] 2.16.840.1.270833.3.579. 2.356 1970 Unknown [id number] 2.16.840.1.822170.3.579. 2.356 1970 Unknown [id number] 2.16.840.1.204139.3.579. 2.356 1970 Unknown [id number] 2.16.840.1.023321.3.579. 2.356 1970 Unknown [id number] 2.16.840.1.385456.3.579. 2.1068 1970 Unknown [id number] 2.16.840.1.098572.3.579. 2.1286 1970 Unknown [id number] 2.16.840.1.156156.3.579. 2.1285 1970 Unknown [id number] 2.16.840.1.972742.3.579. 2.1286 1970 Unknown [id number] 2.16.840.1.393253.3.579. 2.1285 1970 Unknown [id number] 2.16.840.1.054900.3.579. 2.1285 1970 Unknown [id number] 2.16.840.1.094485.3.579. 2.1285 1970 Unknown [id number] 2.16.840.1.658530.3.579. 2.1285 1970 Unknown [id number] 2.16.840.1.790856.3.579. 2.1244 1970 Unknown [id number] 2.16.840.1.754560.3.579. 2.1285 1970 Unknown [id number] 2.16.840.1.032851.3.579. 2.1285 1970 Unknown [id number] 2.840.1.279525.3.579. 2.1285 1970 Unknown [id number] 2.16.840.1.970418.3.579. 2.1285 1970 Unknown [id number] 2.16.840.1.618245.3.579. 2.1285 1970 Unknown [id number] 2.16.840.1.648591.3.579. 2.1285 1970 Unknown [id number] 2.16840.1.940182.3.579. 2.1285 1970 Unknown [id number] 2.16.840.1.340274.3.579. 2.1285 1970 Unknown [id number] 2.16.840.1.742384.3.579. 2.1285 1970 Unknown [id number] 2.16.840.1.221372.3.579. 2.1285 1970 Unknown [id number] 2.16.840.1.835843.3.579. 2.1285 1970 Unknown [id number] 2.16.840.1.572863.3.579. 2.1285 1970 Unknown [id number] 2.16.840.1.763632.3.579. 2.1285 1970 Unknown [id number] 2.16.840.1.202748.3.579. 2.1285 1970 Unknown [id number] 2.16.840.1.750729.3.579. 2.1285 1970 Unknown [id number] 2.16.840.1.754504.3.579. 2.1285 1970 Unknown [id number] 2.16.840.1.470294.3.579. 2.1285 1970 Unknown [id number] 2.16.840.1.118658.3.579. 2.1285 1970 Unknown [id number] 2.16.840.1.978987.3.579. 2.1285 1970 Unknown [id number] 2.16.840.1.967715.3.579. 2.1285 1970 Unknown [id number] 2.16.840.1.777851.3.579. 2.1285 1970 Unknown [id number] 2.16.840.1.221548.3.579. 2.1285 1970 Unknown [id number] 2.16.840.1.578164.3.579. 2.1285 1970 Unknown [id number] 2.16.840.1.853004.3.579. 2.1285 1970 Unknown [id number] 2.16.840.1.907976.3.579. 2.1285 1970 Unknown [id number] 2.16.840.1.925898.3.579. 2.1285 1970 Unknown [id number] 2.16.840.1.782946.3.579. 2.1285 1970 Unknown [id number] 2.16.840.1.712551.3.579. 2.128 1970 Unknown [id number] 2.16.840.1.187098.3.579. 2. 1970 Unknown [id number] 2.16.840.1.887074.3.579. 2.72 1970 Unknown [id number] 2.16.840.1.905830.3.579. 2.72 1970 Unknown [id number] 2.16.840.1.920722.3.579. 2.72 1970 Unknown [id number] 2.16.840.1.858746.3.579. 2. 1970 Unknown [id number] 2.16.840.1.209669.3.579. 2.1258 1970 Unknown [id number] 2.16.840.1.423922.3.579. 2.1258 1970 Unknown [id number] 2.16.840.1.280351.3.579. 2.1258 1970 Unknown [id number] 2.16.840.1.183567.3.579. 2.1258 1970 Unknown [id number] 2.16.840.1.702314.3.579. 2.1258 1970 Unknown [id number] 2.16.840.1.333507.3.579. 2.1258 1970 Unknown [id number] 2.16.840.1.614391.3.579. 2.125 1970 Unknown [id number] 2.16.840.1.491312.3.579. 2.1258 1970 Unknown [id number] 2.16.840.1.677045.3.579. 2.1258 1970 Unknown [id number] 2.16.840.1.396841.3.579. 2.1286 11-1971 Unknown [id number] 2.16.840.1.131728.3.579. 2.1285 1970 Unknown [id number] 2..840.1.817894.3.579. 2.1285 1970 Unknown [id number] 2.16.840.1.154220.3.579. 2.1285 1970 Unknown [id number] 2.840.1.708007.3.579. 2.1285 1970 Unknown [id number] 2.840.1.935816.3.579. 2.1285 1970 Unknown [id number] 2.840.1.120898.3.579. 2.1285 1970 Unknown [id number] 2.840.1.235659.3.579. 2.1285 1970 Unknown [id number] 2.840.1.479759.3.579. 2.1285 1970 Unknown [id number] 2.840.1.315627.3.579. 2.1285 1970 Unknown [id number] 2.840.1.005041.3.579. 2.1285 1970 Unknown [id number] 2.840.1.714930.3.579. 2.1285 1970 Unknown [id number] 2.840.1.984619.3.579. 2.1285 1970 Unknown [id number] 2.840.1.756464.3.579. 2.1285 1970 Unknown [id number] 2.840.1.383761.3.579. 2.1285 1970 Unknown [id number] 2.840.1.334101.3.579. 2.1285 1970 Unknown [id number] 2.840.1.951210.3.579. 2.1286 1970 Unknown [id number] 2..840.1.080930.3.579. 2.1286 1970 Unknown [id number] 2.16.840.1.372926.3.579. 2.1286 1959 Private Health Insurance [id number] 2.16.840.1.382289.19 Unknown Unknown [id number] Unknown Insurance No Card [id number] Unknown [id number] 2.16.840.1.819257.3.579. 2.531 Unknown [id number] 2.16.840.1.701045.3.579. 2.531 Social History Date Type Detail Facility Unknown if ever smoked [facility] Other Start: 02-27-2022 End: 01-04-2023 Sex Assigned At [facility] Start: 07-14-2022 End: 03-18-2024 Tobacco smoking status Never smoked tobacco (finding) [facility] Tobacco smoking status Never [facility] Start: 02-27-2022 End: 01-04-2023 Social alcohol use Social alcohol use [facility] Start: 1970 Sex Assigned At Female [facility] Start: 04-02-2023 End: 03-10-2024 Alcohol intake Lifetime non-drinker (finding) [facility] Start: 01-04-2023 Alcohol Comment Caffeine intake: 1-2 cups per day [facility] Start: 1970 Sex Assigned At Not on file [facility] Start: 01-25-2024 End: 03-18-2024 Tobacco use and exposure Smokeless tobacco non-user [facility] Start: 12-14-2023 End: 04-20-2024 Alcoholic beverage intake Current drinker of alcohol (finding) [facility] Has the [employer], or [employer] threatened to shut off services in your home in past 12Mo No [facility] Do you belong to any clubs or organizations such as jainism groups, unions, fraternal or athletic groups, or school groups? Yes [facility] Are you now , , , , never or living with a partner? [facility] How often to you hav e a drink containing alcohol? 2-3 time sa week [facility] How many standard dr inks containing alcohol do you have on a typical day? 1 or 2 [facility] How often do you hav e 6 or more drinks on 1 occasion? Less than monthly [facility] Do you feel stress - tense, restless, nervous, or anxious, or unable to sleep at night because your mind is troubled all the time - these days [OSQ] To some extent [facility] Start: 02-27-2022 Education 21 [facility] Start: 10-16-2023 Alcohol Comment Socially [facility] Start: 10-05-2014 End: 04-26-2024 Sex Female (finding) [facility] History of tobacco use Passive smoker [facility] Medical Equipment Procedure Code Equipment Code Equipment Origin al Text Equipment Identifier Dates [employer] Tiss [id number] Brst 480-575cc Txtr Intgr Port Allox2 - [id number] - [id number] Start: 10-28-2023 [employer] Tiss [id number] Brst 480-575cc Txtr Intgr Port Allox2 - [id number] - [id number] Start: 10-28-2023 Functional Status Date Assessment Result Facility 12-28-2023 Functional Status N/A [facility] 04-10-2023 Functional Status N/A [facility] [place] 07-14-2022 Functional Status N/A [facility] Clinical Notes 01-18-2021 to 04-29-2024 AMEENA Kennedy - 04/29/2024 9:27 AM ESTTelephone Encounter - Viviane Lopez CMA - 04/26/2024 9:43 AM ESTTelephone Encounter - MEGHNA Kennedy CNP - 04/26/2024 9:43 AM EST Note Date & Type Note Facility 04-29-2024 History of Present illness Narrative Picc line order placed. AMEENA Kennedy 05/02/24 0746 documented in this encounter [facility] 04-28-2024 Note Wound image from 04/03 6 was sent to plastic surgeon. Has shown progression from image sent the prior day. [facility] 04-26-2024 Note Image sent from her left breast wound n 04/26/2024. Reports significant other was changing the dressing, and removing packing when it made another hole. Will touch base with Will plan on continuing current antibiotics. [facility] 04-26-2024 Miscellaneous Notes Ch[facility] Called: They said that they received the referral from our office for the patient to have BID wet to dry dressing changes to her breast wound. Unfortunately they do not accept her insurance so they will not be able to provide these services for her. Will fax referral to [facility]. documented in this encounter [facility] 04-26-2024 Telephone encounter Note Chayito Called: They said that they received the referral from our office for the patient to have BID wet to dry dressing changes to her breast wound. Unfortunately they do not accept her insurance so they will not be able to provide these services for her. [facility] 04-26-2024 Telephone encounter Note Will fax referral to [facility] Work Phone: 04-22-2024 Miscellaneous Notes Spoke with patient oncology team. They are okay with her port being removed and a picc line being placed. They are working on coordinating that surgery. They have already updated the patient's infectious disease physician. - AMEENA Rand 04/22/24 12:36 PM documented in this encounter [facility] 04-22-2024 Telephone encounter Note Spoke with patient oncology team. They are okay with her port being removed and a picc line being placed. They are working on coordinating that surgery. They have already updated the patient's infectious disease physician. - AMEENA Rand 04/22/24 12:36 PM [facility] Work Phone: 04-21-2024 History of Present illness Narrative Reason for Appointment: Patient ID: Ike Flannery is a 53 y.o. female who presents for Post-op Visit Patient presents today for 2 Week Post Op Follow Up appointment. MEDICATIONS Current Outpatient Medications Medication Instructions [...] MOUTH TWICE A DAY FOR HOT FLASHES gabapentin (NEURONTIN) 300 mg, Oral, 2 times daily hydroCHLOROthiazide (HYDRODiuril) 12.5 MG tablet Every 24 hours HYDROcodone-acetaminophen ([place]) 5-325 MG tablet TAKE ONE TABLET BY [...] Allergies Allergen Reactions Meperidine Swelling and Unknown Other Reaction(s): Other, Unknown Daptomycin Other Other Reaction(s): Flushing Meperidine Hcl Unknown Tetracycline Tigecycline Hives Rash vomiting Vancomycin Other Reaction(s): Other Intolerance: experienced acute kidney injury during a hospitalization, suspected due to vancomycin. Doxycycline Rash Wound Dressing Adhesive Rash, Unknown and Itching PROBLEMS Active Ambulatory Problems Diagnosis Date Noted Complex ovarian cyst 05/26/2023 Invasive ductal carcinoma of breast, right ([facility]/HCC) 05/26/2023 Well woman exam with routine gynecological exam 05/26/2023 Retinal tear of right eye 12/30/2023 Vitreous hemorrhage of right eye (CMS/HCC) 12/30/2023 Resolved Ambulatory Problems Diagnosis Date Noted No Resolved Ambulatory Problems Past Medical History: Diagnosis Date Cardiac dysrhythmia HTN (hypertension) (CMS/HCC) Hypokalemia Migraine headache (CMS/HCC) HISTORY PAST MEDICAL HISTORY SOCIAL HISTORY Past Medical History: Diagnosis Date Cardiac dysrhythmia HTN (hypertension) ([facility]/HCC) Hypokalemia Migraine headache (CMS/HCC) Social History Tobacco [...] SYSTEMS Review of Systems: Review of Systems All [...] nursing note reviewed. Exam conducted with a lightout examiner present. Vitals: Estimated body mass index is 27.91 kg/m as calculated from the following: Height as of 24: 5' 11 . Weight as of 03/10/24: 200 lb 1.9 oz. BP: No LMP recorded. Patient has had a hysterectomy. ASSESSMENT & PLAN ICD-10-CM 1. Postoperative follow-up Z09 Patient presents to office for postoperative appointment from Robotic Bilateral Salpingectomy with extensive BEATA. Discussed surgical procedure in depth with patient and patient to follow up as directed. Incisions healing well and no signs of infection. Documented by Catie Walker LPN on behalf of: Evan Thompson DO documented in this encounter [facility] 04-20-2024 History of Present illness Narrative [facility] [address] Office Jhon Rosado MD, PhD Marisela Cuevas, REFLOW OPERATOR-RETURNED CASE INSPECTOR INÉS King, REFLOW OPERATOR-RETURNED CASE INSPECTOR Plastic Surgery Progress Note Reason for visit : post-op History of present illness: Ike Flannery is a 53 y.o. female with a history of a history of right breast cancer status post bilateral skin sparing mastectomies (He) and tissue professional wrestler reconstruction in 10/28/2023. Her postoperative course was complicated by an infected seroma of her left breast requiring operative washout and tissue professional wrestler removal 11/27/23. 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 She then developed a wound of her left breast requiring I&D of her left breast 02/26/24. Intraoperative tissue cultures were sent and again positive for mycobacterium. She again developed a left breast wound requiring I&D on 03/21/24. She presents to the office today for wound check. She states that she was packing her previous wounds but can no longer fit any packing in the area. She did notice that she has some new areas to the central portion of her incision. You are not draining. She also has followed up with her infectious disease physician who is wondering if her port can be removed and a PICC line placed given her ongoing Mycobacterium infection. The patient is doing well postoperatively. The patient denies fever, chills, redness or drainage from surgical wound(s). Review of Systems: Denies surgical site concerns. All other symptoms negative except as noted in HPI. Physical Examination: Vitals: 04/20/24 1511 BP: 143/85 Pulse: 84 Resp: 16 Temp: 36.4 C (97.6 F) Body mass index is 27.71 kg/m . GENERAL: no acute distress, well developed, well nourished. LYMPHATIC: no upper extremity lymphedema NEUROLOGIC: alert and oriented to time, place and person. PSYCH: judgement and insight good, mood/affect full range. Focused examination : Left breast with mild erythema along incision. Breast is soft. No ballotable fluid collections palpated. Few blisters present along the central portion of the incision. Mild erythema around report. Impression: 1. Encounter for postoperative care 2. Seroma of breast 3. S/P breast reconstruction, bilateral 4. Breast wound, left, sequela Recommendations: After verbal consent was obtained patient's incision was clean using Betadine. Incision with blisters was opened using sterile scissors. Seroma was drained. 4 x 4 saline moistened gauze was packed into the wound. This was then covered with ABD pad. Discussed with patient that she likely had a residual seroma still of her breast. We would like her to continue with b.i.d. wet-to-dry dressing changes until this heals. I will review with Dr. Rosado. I discussed that if she continues to have wounds he may have to provide some soft tissue coverage to the area like with a latissimus dorsi muscle flap. I will also discuss this with him. Will send a referral to home health to assist with b.i.d. wet-to-dry dressing changes. Follow up next week with Dr. Rosado as scheduled. - AMEENA Rand 04/20/24 4:02 PM Please note that portions of this note were generated using voice recognition [employer] dictation software. Although every effort was made to ensure the accuracy of this automated chain carrier, some errors in chain carrier may have occurred. 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 Consent signed and reviewed with Avi Tobar [facility], patient and myself. Everyday, Thursday-Thursday for 20 days Radiation therapy. Keytruda starting on Thursday Oopherectomy plannned Update potassium dose On b6 and b12 On anastrozole. 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 Clofazimine JOSÉ MIGUEL remains <= 0.5 Imipenem remains at JOSÉ MIGUEL of 16 No JOSÉ MIGUEL creep noted. There is an additional culture from 03/21/24 that is pending, has been sent to [facility] for further work up. Awaiting those results as well. Recommendations: Continue on PO Tedizolid 200mg once daily Continue clofazamine 100mg once daily, started on 02/14 Continued Imipenem has been extended an additional 4 weeks Amikacin started on 04/15 therapeutic peak, Most recent JOSÉ MIGUEL of 8 (02/19/2024), peak was at 32 Trough at appropriate level Would continue at minimum 4 weeks and up to 8 weeks if she continues to tolerate. Will need monitoring labs and mounter sousaphones H/H if it remains persistently low may have to consider discontinuing tidezolid. Have reached out to office regarding left port. Some erythema noted today, would recommend its removal Failure to improve is more likely indicative for need of further debridement. It is not uncommon to require serial debridement even when on appropriate antibiotics Will need to consider dual beta-lactam Follow Up: 05/10/2024 Subjective History of Present Illness: Doing well, currently on Tedizolid, imipenem and clarithromycin. Will have her discontinue clarithromycin, continue imipenem and Tedizolid. Plan to proceed with Radiation therapy. IRB approval for Clofazamine has been obtained, Has started on 02/14, From previous note, has had additional debridement in the office, JOSÉ MIGUEL from 02/18 have returned. Mycobacterium abscessum Skin and Soft Tissue Infection: Suspect ocean water exposure in August as the initial trigger followed by breast professional wrestler placement. Source control was achieved with professional wrestler removal in October. The skin appears healthy [...] the right breast. ER negative (weakly positive) [place] negative HER2 negative. Was previously on chemotherapy [...] interim history Objective Physical Examination : BP 148/84 Pulse 87 Temp 36.6 ???C (97.9 ???F) (Oral) Wt 92.1 kg (203 lb) SpO2 98% BMI 28.31 kg/m??? Temperature Range: Temp: 36.6 ???C (97.9 ???F) @FLOWSTAT(6:24)@ General Appearance: Awake, alert, and in no apparent distress Cardiovascular: Regular rate and rhythm without murmurs, rubs, or gallops. Abdomen: Soft, non-tender, normal bowel sounds; no bruits, o (more content not included)... [facility] 04-13-2024 History of Present illness Narrative [facility] [address] Office Jhon Rosado MD, PhD Marisela Cuevas, REFLOW OPERATOR-RETURNED CASE INSPECTOR INÉS King, REFLOW OPERATOR-RETURNED CASE INSPECTOR Plastic Surgery Progress Note Reason for visit : post-op History of present illness: Ike Flannery is a 53 y.o. female with a history of right breast cancer status post bilateral skin sparing mastectomies (He) and tissue professional wrestler reconstruction in 10/28/2023. Her postoperative course was complicated by an infected seroma of her left breast requiring operative washout and tissue professional wrestler removal 11/27/23. 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 She then developed a wound of her left breast requiring I&D of her left breast 02/26/24. Intraoperative tissue cultures were sent and again positive for mycobacterium. She again developed a left breast wound requiring I&D on 03/21/24 . She presents to our office today for wound check. She states that on Thursday she had some drainage from her left breast incision. She did not have any further drainage until this afternoon. She has been keeping the area clean and dry. She has recently met with Dr. Sepulveda's regarding a mass on her ovary. She has surgery scheduled to have this removed in 3 weeks. The patient denies fever, chills, redness. Positive for drainage. No malodor or purulence to drainage. Review of Systems: Denies surgical site concerns. All other symptoms negative except as noted in HPI. Physical Examination: Vitals: 04/13/24 1340 BP: 134/82 Resp: 15 Temp: 36.6 C (97.9 F) Body mass index is 27.71 kg/m . GENERAL: no acute distress, well developed, well nourished. LYMPHATIC: no upper extremity lymphedema NEUROLOGIC: alert and oriented to time, place and person. PSYCH: judgement and insight good, mood/affect full range. Focused examination : left breast incision with small blisters present centrally. Lateral portion of incision with drainage. Mild erythema along incision. No edema present. Skin without induration. Nipple areolar complex is surgically absent. Impression: 1. Encounter for postoperative care 2. Seroma of breast 3. S/P breast reconstruction, bilateral 4. Mycobacterium abscessus infection 5. Breast wound, left, sequela Recommendations: patient was seen and evaluated with Dr. Rosado. After verbal consent was obtained utilizing sterile scissors area along lateral portion of incision was opened further. Seroma was then evacuated. Fluid was free from malodor or purulence. We discussed with patient she now has a small wound present were seroma was located. We will want her to perform BID wet to dry dressing changes. No antibiotics were sent to pharmacy as she is currently on IV abx. Discussed it is okay for quick shower. Continue to limit activities. We discussed we want to keep a close eye on her and will have her follow up early next week to evaluate her breast wound. She was advised to call the office if she develops and fever, chills, redness, pain or swelling of her breast. - AMEENA Rand 04/13/24 2:59 PM Please note that portions of this note were generated using voice recognition [employer] dictation software. Although every effort was made to ensure the accuracy of this automated chain carrier, some errors in chain carrier may have occurred. AMEENA Kennedy 04/13/24 1459 documented in this encounter [facility] 04-13-2024 History of Present illness Narrative Subjective: Ike is a 53 y.o. female here for consultation from for evaluation and management of left-sided pelvic mass. This patient recently underwent a minimally invasive bilateral salpingo-oophorectomy for an ER and [place] positive breast cancer, at the time of the operation she was noted to have a left-sided pelvic mass, this was unable to be resected due to its intimate nature with the left ureter. She is here for further evaluation and treatment today. I reviewed the intraoperative images and I strongly suspect this is a broad ligament fibroid, her medical oncologist he is concerned that this may be a metastatic breast lesion. We discussed surgical excision with pathologic evaluation in detail. Oncology History No overview note Ike : Denies Early satiety Denies Abdominal distention Denies Leg swelling Denies Shortness of breath Denies Vaginal bleeding Denies Change in bowel habits Denies Change in bladder habits Denies Nausea and vomiting All other systems negative, unless specifically noted in HPI. Past Gynecologic History: OB History 1 Para 1 Term 1 AB Living SAB IAB Ectopic Multiple Live Births No LMP recorded. Patient has had a hysterectomy. Hormonal Contraceptives No HRT use No History of abnormal pap No Past Surgical History: Procedure Laterality Date ARTHROSCOPIC REPAIR ACL Right 2006 ARTHROSCOPIC REPAIR ACL Left 08/26/2021 BREAST BIOPSY Right 2023 mammary carcinoma CLOSURE WOUND MIDSECTION- BREAST Left 02/26/2024 Performed by Jhon Rosado MD at [facility] EXCISION LYMPH NODE AXILLARY DISSECTION Right 10/28/2023 Performed by Christy He MD at [facility] EXCISION OF REDUNDANT INFECTED LEFT CHEST WALL TISSUE WITH PRIMARY CLOSURE Left 03/21/2024 Performed by Jhon Rosado MD at [facility] HYSTERECTOMY 2006 IMMEDIATE BREAST RECONSTRUCTION WITH TISSUE SAW CLEANER PLACEMENT Bilateral 10/28/2023 Performed by Jhon Rosado MD at [facility] INCISION DRAINAGE BREAST Left 11/27/2023 Performed by Jhon Rosado MD at [facility] INCISION DRAINAGE BREAST (WASHOUT) Left 02/26/2024 Performed by Jhon Rosado MD at [facility] MAGNETIC SEED LOCALIZATION EXCISION/BIOPSY MASS BREAST (MAG SEED LOCALIZED TARGETED DISSECTION FOR RETRIEVAL OF PREVIOUSLY CLIPPED LYMPH NODE) Right 10/28/2023 Performed by Christy He MD at [facility] MASTECTOMY BREAST SIMPLE RISK REDUCING SKIN SPARING Left 10/28/2023 Performed by Christy He MD at [facility] MASTECTOMY BREAST SIMPLE SKIN SPARING Right 10/28/2023 Performed by Christy He MD at [facility] MENISCECTOMY Bilateral 2022 PORTACATH PLACEMENT Left left chest REMOVAL SAW CLEANER TISSUE BREAST Left 11/27/2023 Performed by Jhon Rosado MD at [facility] RIGHT AXILLARY PROPHYLACTIC BYPASS LYMPHOVENOUS Right 10/28/2023 Performed by Jhon Rosado MD at [facility] TONSILLECTOMY AND ADENOIDECTOMY Age 3 TUMOR REMOVAL back-benign Past Medical History: Diagnosis Date Breast cancer (CMS-HCC) 2023 mammary carcinoma Breast wound left Deep vein thrombosis (CMS-HCC) 09/18/2023 Left calf Hypertension Knee pain Mycobacterial infection PONV (postoperative nausea and vomiting) Port-A-Cath in place 05/13/2023 Visual impairment Glasses Family History Adopted: Yes Social History Tobacco Use Smoking status: Never Passive exposure: Past Smokeless tobacco: Never Substance Use Topics Alcohol use: Yes Comment: Socially Review of Symptoms: Pertinent items are noted in HPI. Objective: Ht 180.3 cm (5' 10.98 ) Wt 90.1 kg (198 lb 9.6 oz) BMI 27.71 kg/m ECO- Asymptomatic General appearance: alert, appears stated age and cooperative Head: Normocephalic, without obvious abnormality, atraumatic Ears: normal TM's and external ear canals both ears Neck: no adenopathy, no carotid bruit, no JVD, supple, symmetrical, trachea midline and thyroid not enlarged, symmetric, no tenderness/mass/nodules Lungs: clear to auscultation bilaterally Breasts: normal appearance, no masses or tenderness Heart: regular rate and rhythm, S1, S2 normal, no murmur, click, rub or gallop Abdomen: abnormal findings: soft, nontender, well-healing incisions x3 Pelvic: deferred today Extremities: extremities normal, atraumatic, no cyanosis or edema Pulses: 2+ and symmetric Skin: Skin color, texture, turgor normal. No rashes or lesions Lymph nodes: Cervical, supraclavicular, and axillary nodes normal. Neurologic: Grossly normal Labs: Lab Results Component Value Date WBC 4.3 12/09/2023 HGB 7.5 (L) 03/21/2024 HCT 21.4 (L) 03/21/2024 MCH 29.9 12/09/2023 MCHC 33.8 12/09/2023 PLT 153 12/09/2023 MPV 7.6 12/09/2023 RDW 14.6 12/09/2023 Lab Results Component Value Date BUN 23 12/09/2023 K 3.8 12/09/2023 CL 106 12/09/2023 ALBUMIN 3.2 12/09/2023 AST 39 12/09/2023 No results found for: GGT No results found for: LDH Lab Results Component Value Date MG 1.8 12/09/2023 No results found for: PHOS No results found for: URIC Assessment: Patient is diagnosed with Patient Active Problem List Diagnosis Arthritis of left knee Cardiac arrhythmia Chronic hypokalemia Complete tear, knee, anterior cruciate ligament Epidermoid cyst of skin Hypertension Hypertensive kidney disease, stage II Internal derangement of right knee Palpitations Primary osteoarthritis Secondary cataract of right eye Recurrent UTI Asthma, exercise induced Iron deficiency anemia Malignant neoplasm of lower-inner quadrant of right breast of female, estrogen receptor positive ([facility] S/P breast reconstruction, bilateral Cellulitis of left breast MIRNA (acute kidney injury) ([facility] Infection of deep incisional surgical site after procedure Mycobacterium abscessus infection Pelvic mass in female Plan: 1. The patient has a documented plan of care to address pain. 2. Suspicious left-sided pelvic mass seen on diagnostic laparoscopy-plan for robotically assisted excision of pelvic mass. 3. Discussed the risks of surgery in detail including; bleeding, infection, damage to internal organs, risk of anesthesia including-clots, pneumonia, myocardial infarction, stroke and even . The patient understands the risks and elects to proceed. 4. Total time spent was 62 minutes: Preparing to see the patient (e.g., review of tests) Obtaining and/or reviewing separately obtained history Performing a medically appropriate examination and/or evaluation Counseling and educating the patient/family/caregiver Ordering medications, tests, or procedures Referring and communicating with other health inspector health care facilities (not separately reported) Documenting clinical information in the electronic or other health record Raymond Sepulveda MD documented in this encounter [facility] 04-13-2024 History of Present illness Narrative History: Pt was referred to Audiology because of hearing loss. Pt needs baseline audio before she starts a potentially ototoxic antibiotic. Pt does not notice hearing loss. She denies tinnitus. 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 Pt is not candidate for amplification. Copy of results given to pt documented in this encounter [facility] 03-30-2024 History of Present illness Narrative [facility] [address] Office Jhon Rosado MD, PhD Marisela Cuevas, REFLOW OPERATOR-RETURNED CASE INSPECTOR INÉS King, REFLOW OPERATOR-RETURNED CASE INSPECTOR Plastic Surgery Progress Note Reason for visit : post-op History of present illness: Ike Flannery is a 53 y.o. female with a past medical history right breast cancer status post bilateral skin sparing mastectomies (He) and tissue professional wrestler reconstruction in 10/28/2023. Her postoperative course was complicated by an infected seroma of her left breast requiring operative washout and tissue professional wrestler removal 11/27/23. Intraoperative cultures demonstrated growth of [...] this note were generated using voice recognition Engrade dictation software. Although every effort was made to ensure the accuracy of this automated chain carrier, some errors in chain carrier may have occurred. AMEENA Kennedy 03/30/24 1629 documented in this encounter [facility] 03-18-2024 Instructions Formatting of th is note might be different from the original. Your surgery/procedure is scheduled at [facility] on 03/21/24 at 3;30 pm Arrival Time 12;30 pm [facility] Address: [address] [place] [address], [address] [place] [address] in the Emergency Center Parking lot. Report to the senior front end web developer in the Emergency/Surgery Registration lobby of the hospital. Notify your SURGEON if you develop any illness such as a cold, cough, fever, sore throat, vomiting or are hospitalized between now and your surgery. Please call Pre-Admission Clinic at [phone] if you have any questions prior to surgery. For questions the morning of surgery, call the Pre-op Department at [phone]. Medication Instructions (Do not stop your medications [...] [facility], please call [phone] ([phone]). Do not use lotions, creams, powders, perfume, make up, cologne or after-shaves day of surgery. Remove ALL jewelry including wedding rings, body piercings, hair extensions that contain metal, nail yakut, make-up, and contact lens. You may brush your teeth the morning of surgery, but do not swallow the water. Wear your dentures and partial plates to the hospital (no adhesive). Shower the night the before. If applicable, use the CHG (chlorhexidine gluconate) soap or wipes. Please be advised, [facility] has transitioned to a cashless payment system. [...] RIGHTS AND RESPONSIBILITIES As a patient at [facility], you have the right to: Receive medical care and be informed of who is taking care of you Be treated with dignity and respect Have a family member/investment representative of choice and your physician notified of your admission Receive information and actively participate in decisions about your care and treatment Refuse care, treatment and services Decide who may provide your support and speak for you Access scientologist and spiritual services Participate in ethical issues [...] of hospital charges and payment methods Patient/patient investment representative responsibilities are to: Provide information about health status to facilitate care, treatment and services Follow the treatment, plan, keep appointments and speak up when you do not understand the plan Respect the rights of other patients and healthcare personnel Follow organizational rules and regulations that support quality care and a safe environment Fulfill financial obligations as promptly as possible [facility] 03-18-2024 Miscellaneous Notes Your surgery/procedure is scheduled at [facility] on 03/21/24 at 3;30 pm Arrival Time 12;30 pm [facility] Address: [address] [place] [address], [address] [address] in the Emergency Center Parking lot. Report to the senior front end web developer in the Emergency/Surgery Registration lobby of the hospital. Notify your SURGEON if you develop any illness such as a cold, cough, fever, sore throat, vomiting or are hospitalized between now and your surgery. Please call Pre-Admission Clinic at [phone] if you have any questions prior to surgery. For questions the morning of surgery, call the Pre-op Department at [phone]. Medication Instructions (Do not stop your medications [...] would like to schedule therapy at a [facility] facility, please call [phone] ([phone]). Do not use lotions, creams, powders, perfume, make up, cologne or after-shaves day of surgery. Remove ALL jewelry including wedding rings, body piercings, hair extensions that contain metal, nail yakut, make-up, and contact lens. You may brush your teeth the morning of surgery, but do not swallow the water. Wear your dentures and partial plates to the hospital (no adhesive). Shower the night the before. If applicable, use the CHG (chlorhexidine gluconate) soap or wipes. Please be advised, [facility] has transitioned to a cashless payment system. [...] RIGHTS AND RESPONSIBILITIES As a patient at [facility], you have the right to: Receive medical care and be informed of who is taking care of you Be treated with dignity and respect Have a family member/investment representative of choice and your physician notified of your admission Receive information and actively participate in decisions about your care and treatment Refuse care, treatment and services Decide who may provide your support and speak for you Access scientologist and spiritual services Participate in ethical issues [...] of hospital charges and payment methods Patient/patient investment representative responsibilities are to: Provide information about [...] promptly as possible documented in this encounter [facility] 03-16-2024 Note Patient seen in clin ic [...] and the other 2 are in the remedial project manager section from today's date -she has a [...] insurance company for a referral to an polysomnography tech, need to start chemotherapy within the next [...] Lui will consult with mycobacterial experts at [facility] regarding the risk of worsening or inability control the current mycobacterial infection with the planned chemotherapeutic agents and then he will shinnecock back with oncology as well -if there [...] to need to communicate to us through [employer] and she has an appointment scheduled for [...] if possible Addendum: spoke with Dr. Rosado ([phone]) and his staff will call her to get her on the surgery schedule. Spoke with Dr. Hope ([phone]) and he will try to start chemo in late April [facility] 03-15-2024 Miscellaneous Notes [facility] (Radiology) Requested Most Recent Office Note Faxed at 4:45pm 03/15/24 documented in this encounter [facility] 03-15-2024 Telephone encounter Note [facility] (Radiology) Requested Most Recent Office Note Faxed at 4:45pm 03/15/24 [facility] 03-10-2024 History of Present illness Narrative Reason for Appointment: Patient ID: Ike Eason Widman is a 53 y.o. female who presents for No chief complaint on file. Patient presents today for Pre Op appointment. Patient is scheduled to undergo Da Jason assisted Diagnostic Laparoscopy with Bilateral Salpingo-Oophorectomy, possible BEATA, possible FOE on 04/07/[address] Thompson at [facility]. MEDICATIONS Current Outpatient Medications Medication Instructions chlorthalidone [...] 12.5 MG tablet Every 24 hours HYDROcodone-acetaminophen ([place]) 5-325 MG tablet TAKE ONE TABLET BY [...] nursing note reviewed. Exam conducted with a lightout examiner present. Vitals: Estimated body mass index is [...] reviewed, and patient is to proceed to [facility] OR. Follow Up: Patient is to follow up between 1-2 weeks post operative to assess proper healing and recovery from procedure. Documented by Catie Walker LPN on behalf of: Evan Thompson DO documented in this encounter [facility] 03-10-2024 History of Present illness Narrative [facility] [address] Office Jhon Rosado MD, PhD Marisela Cuevas, REFLOW OPERATOR-RETURNED CASE INSPECTOR INÉS King APRN-ESPERANZA Plastic Surgery Progress Note Reason for visit : post-op follow up History of present illness: Ike Flannery 53 y.o. is here today for a follow up after repeat debridement of her left breast wound on 02/26/24. 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 She has a history of right breast cancer status post bilateral skin sparing mastectomies and tissue professional wrestler reconstruction in October 2023. Her postoperative course was complicated by an infected seroma of her left breast requiring operative washout and tissue professional wrestler removal in November 2023. 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 hospital follow up documented in this [facility]10-16-2024 Telephone encounter Note* Telephone Encounter - Deborah Wills CMA - 12/16/2023 11:25 AM EDT Patient will call us back to schedule a hospital follow up [facility]10-14-20[facility] History of Present illness Narrative* AMEENA Kennedy - 12/14/2023 3:30 PM EDT [facility] [address] [...] developed an infection of her left tissue professional wrestler and went underwent I&D of left breast was removal of tissue professional wrestler 11/27/2023. Patient did have positive cultures. She continues to follow with Infectious Disease. She presents to office today for right breast tissue professional wrestler filled. She states overall she is doing [...] complexes are surgically absent. Right breast tissue professional wrestler in place. Procedure note : Tissue professional wrestler fill port, was identified using magnet. This area was cleansed with alcohol, and Betadine. Then using a 25 gauge needle, approximately 200ml normal saline was injected into right tissue professional wrestler(s). Patient tolerated well. Adequate hemostasis was achieved, [...] continue to expand her right breast tissue professional wrestler until she is at a size she is happy with. We would like this to be completed prior to starting radiation therapy. She does have an appointment scheduled to meet with Radiation Oncology at the end of the month. Continue with IV antibiotics per Infectious disease's recommendations. Continue to refrain from any heavy lifting, pushing or pulling. Follow up next week for tissue professional wrestler filled. She was advised to call the office any questions orconcerns in the interim. - AMEENA Rand 12/14/23 3:57 PM Please note that portions of this note were generated using voice recognition M*Lyfepoints dictation software. Although every effort was made to ensure the accuracy of this automated chain carrier, some errors in chain carrier may have occurred. AMEENA Kennedy 12/14/23 1557 documented in this encounterOhioHealth [facility]10Six [id number] History of Present illness Narrative* TATI Gordon - 12/14/2023 2:00 PM EDT POSTOPERATIVE VISIT DIAGNOSIS: Right IDC grade 3, ER 75, [place]-, Vzw-1-jsbikfxb (IHC score 1+), 1.8 cm, 6/12 nodes+ STAGE: ypT1c N2a DATE OF DIAGNOSIS: 04/10/2023 OPERATION PERFORMED: Right skin sparing mastectomy, right axillary lymph node dissection, left risk-reducing skin sparing mastectomy, right lymphovenous bypass and bilateral tissue expanders (10/29/2023); s/p I&D left breast w removal of tissue professional wrestler d/t infection (11/27/2023). GENETIC TESTING: No mutations MED ONC: Dr. Luis Hope RAD ONC: Referred PLASTICS: Dr. Jhon Rosado PATHOLOGY: The following pathology was reviewed and discussed with the patient. [facility] [address] [place] [address] Surgical Pathology Consultation Patient Name:IKE FLANNERY:1970 (Age: 53)Gender:FTaken:4Reported:4Physician(s):Christy He MD ([phone])Copy To:Jhon B. Sugg, [facility] Centeression #:[id number]. Rec. #:[id number]: #[id number] Final Pathologic Diagnosis 1. Left breast, mastectomy: [...] IMPRESSION: -Right IDC grade 3, ER 75, [place]-, Swg-8-dnbwupmn (IHC score 1+); s/p right skin sparing mastectomy, right axillary lymph node dissection, left risk-reducing skin sparing mastectomy, right lymphovenous bypass and bilateral tissue expanders (10/29/2023); 1.8 cm, 6/12 nodes+; s/p I&D left breast w removal of tissue professional wrestler d/t infection (11/27/2023 PLAN: Discussed pathology report [...] to her next visit. Francisca Mason PA-C [facility] [phone] (phone) TATI Gordon 12/16/23 5844 documented in this encounterTr[facility]10-[facility]24 NoteSubjective Patient ID: Tia Flannery is a 53 y.o. female. 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 The tissue professional wrestler was removed on 26 November. A specific question would be when is she able to receive radiation therapy as part of her breast cancer treatment. 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 ER negative (weakly positive) [place] negative HER2 negative. She received neoadjuvant chemotherapy with carboplatin and paclitaxel and Keytruda. She underwent double mastectomy in October 2023. Had a follow-up visit on 24 November, she had fluid aspiration from her left breast. This was smear positive for acid-fast bacilli; subsequent cultures grew Mycobacterium abscessus. The tissue professional wrestler was removed on 26 November. She appears [...] home antibiotic therapy. She was referred to [facility] infectious disease with a planned visit in mid December; we accommodated an earlier visit. She says that she takes trazodone intermittently for sleep. She does not take it regularly. She last took it last night. 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 Review [...] Exam Vitals reviewed. Exam conducted with a lightout examiner present. Constitutional: Appearance: Normal appearance. HENT: Head: [...] calor, no dolor, no tumor, no drainage. Pack Mule Worker present No nipples Abdominal: General: Abdomen is [...] left breast aspirate- M. Abscessus; sent to [facility] on 04 Dec 2023 for susceptiblity. [...] Mycobacterium abscessus infection related to breast tissue professional wrestler which has been removed. Cultures were positive from 24 November. Breast professional wrestler was removed on 26 November. She appears to have been started on agents active against Mycobacterium abscessus on 04 December. She has specimens that have been sent to [facility] on the first week of November susceptibilities are pending. She has no signs or symptoms of systemic infection and her chest demonstrates no drainage or fluctuance. Assessment/Plan 53 y.o. female We will continue (more content not included)...[facility]10-11-2024 Miscellaneous Notes* Telephone Encounter - Ana Ibrahim [...] AM EDT Mailbox full documented in [facility] Telephone encounter Note* Telephone Encounter - Ana Ibrahim - 12/11/2023 10:24 AM EDT Needs TCM before 12/21 [facility]10-11-2024 Telephone encounter Note* Telephone Encounter - Ana Ibrahim - 12/11/2023 10:24 AM EDT Mailbox full [facility]10-11-2024 Telephone encounter Note* Telephone Encounter - Ana Ibrahim - 12/11/2023 10:24 AM EDT he has upcoming appts with at least 3 specialties that is a lot with what she is going through. If she needs anything from me let me know- she could do telehealth too. - richie [facility]10-11-2024 Telephone encounter Note* Telephone Encounter - Ana Ibrahim - 12/11/2023 10:24 AM EDT Mailbox full [facility]10-11-2024 Miscellaneous Notes* Telephone Encounter - Mela Berrios RN - 12/11/2023 9:15 AM EDT Transition of Care (*required) *Additional Questions/Concerns Requiring PCP Follow-Up: For TCM, patient would need appt on/before 12/22/23 This documentation is being used for Transition of Care purposes: Yes Goal: Patient will demonstrate a safe transition from hospital to home Diagnosis on Discharge: Postop infection of left breast tissue professional wrestler-culture with mycobacterium abscessus New rash Acute kidney injury History of breast cancer S/p bilateral mastectomies S/p bilateral breast reconstruction October 28, 2023 Discharge Specialty: Hem/Onc, Infectious Disease, and Nephrology *Name of Discharging Facility: [facility] Date of Facility Discharge: Admitted; 12/02/23 Discharged: 12/09/23 Date of Interactive Contact and Name of Hand Shaper: 12/11/23 Patient: Ike Flannery *Medication Review Completed: [...] Providers: Primary: RICHIE HANNA APRN-ESPERANZA Specialty: ID ([facility]): 12/11/23 Specialty: Surgical Oncology (TATI Mason): [...] Called [facility] Note* Telephone Encounter - Mela Berrios RN - 12/11/2023 9:15 AM EDT Transition of Care (*required) *Additional Questions/Concerns Requiring PCP Follow-Up: For TCM, patient would need appt on/before 12/22/23 This documentation is being used for Transition of Care purposes: Yes Goal: Patient will demonstrate a safe transition from hospital to home Diagnosis on Discharge: Postop infection of left breast tissue professional wrestler-culture with mycobacterium abscessus New rash Acute kidney injury History of breast cancer S/p bilateral mastectomies S/p bilateral breast reconstruction October 28, 2023 Discharge Specialty: Hem/Onc, Infectious Disease, and Nephrology *Name of Discharging Facility: [facility] Date of Facility Discharge: Admitted; 12/02/23 Discharged: 12/09/23 Date of Interactive Contact and Name of Hand Shaper: 12/11/23 Patient: Ike Flannery *Medication Review Completed: [...] Appointments with Providers: Primary: AMEENA GARCIA Specialty: ID ([facility]): 12/11/23 Specialty: Surgical Oncology (TATI Mason): [...] Utilized/Needed by the Patient: [facility] [facility] [id number] Telephone encounter Note* Telephone Encounter - Ana Ibrahim - 12/11/2023 9:15 AM EDT [facility] patient mail[facility] [id number] History of Present illness Narrative* Og Morton [...] BMP in 1 week and follow-up withMD /POLYSOMNOGRAPHY TECH in renal clinic in 1 months time. [...] 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, 2023 Hypertension Edema Depression/anxiety [...] 8 (L) 01/31/2022 Please contact me at [phone] (Office) or [phone] (Answering service) with any questions. Please feel free to contact me through [employer] chat during the daytime hours, if no response after 5 minutes then call the answering service. Og Morton MD [facility] This note was created with the [...] : Postop infection of left breast tissue professional wrestler-culture with mycobacterium abscessus New rash Acute kidney [...] January 14 tentatively Ambulatory referral placed for [facility] ID Dr. Lui for longterm management -has appointment January 13 WBC, platelets, creatinine, LFTs weekly while on antibiotics Prescription for imipenem provided to landscape architect and planner Follow-up CBC renal function WBC 4.3, [...] 60 min Stress: Stress Concern Present (02/27/2022) [employer] [facility] [employer] [facility] - Occupational Stress Questionnaire Feeling of Stress : To some extent Social Connections: Socially Integrated (02/27/2022) Social Connection and Isolation Panel [NHANES] Frequency of Communication with Friends and Family: Twice a week Frequency of Social Gatherings with Friends and Family: Three times a week Attends Confucianism Services: More than 4 times per year [...] Lab Units 12/09/23 0512/08/23 0514 12/07/23 0450 WBC X10E9/L 4.3 2.9* [...] Value Units Date/Time Resp Pathogens Panel/SARS CoV-2 [[id number]] Collected: 12/05/23 1158 Specimen: Nasopharynx Updated: 12/05/23 [...] COV 2 Not Detected Blood culture #2 [[id number]] Collected: 12/05/23 1040 Specimen: Blood Updated: 12/08/23 1508 Culture NO GROWTH 3 DAYS Blood culture #1 [[id number]] Collected: 12/05/23 1031 Specimen: Blood Updated: 12/08/23 1507 Culture NO GROWTH 3 DAYS Urine culture [[id number]] Collected: 12/02/23 2305 Specimen: Urine, Clean Catch Midstream Updated: 12/04/23 0709 Culture NO GROWTH AT <1000 CFU/mL Blood culture [[id number]] Collected: 12/02/23 2231 Specimen: Blood, Line Draw Updated: 12/08/23 0817 Specimen Notes SUBOPTIMAL VOLUME OF BLOOD COLLECTED, RESULTS MAY BE AFFECTED. Culture NO GROWTH 5 DAYS Blood culture [[id number]] Collected: 12/02/23 2213 Specimen: Blood, Line Draw [...] this patient. Please call with questions. Gino Mcnealmerrill RICHTER, [facility] [phone] This note was completed using a voice chain carrier system. Every effort was made to ensure accuracy. However, inadvertent computerized chain carrier errors may be present. Gino Munguia APRN-[facility] 12/09/23 1346 Carlene Landon MD, personally performed kdyf-ke-adsq diagnostic evaluation on this patient I reviewed and performed all the ross component of the patient visit I reviewed CELINA history, exam and MDM - Carlene Noguera MD 12/09/23 2:08 PM * Amy Jack MD - 12/08/2023 5:15 PM EDT Images from the original note were not included. [facility] - ONCOLOGY/STROKE [address] [facility] [id number] Hospital Medicine Progress Note Patient: Ike Flannery Date of : 1970 Room: [facility] Admission date: 12/02/2023 9:55 PM Encounter date: [...] tenderness or frontal sinus tenderness. Mouth/Throat: Lips: [place]. Mouth: Mucous membranes are moist. Pharynx: Oropharynx [...] Q12H RADHA Infusions: As Needed: acetaminophen albuterol jeosmlf-wmwoeuccowvis-qrzdnoya calcium gluconate calcium gluconate calcium gluconate cyclobenzaprine [...] LIST Principal Problem: MIRNA (acute kidney injury) ([facility]) Active Problems: Hypertension Malignant neoplasm of lower-inner [...] and plastic surgery following, referral sent to [facility] ID -continue cipro and clarithromycin, imipenem -benadryl PRN -follow cultures -Continue eliquis -Hold lisinopril, lasix and spironolactone until MIRNA improves -replace B12 -replace and monitor electrolytes per protocol and scale Amy Jack MD * Gino Munguia APRN-RETURNED CASE INSPECTOR - 12/08/2023 5:13 PM EDT [facility] - Daily Progress Note Ike Flannery Admission date/time 12/02/2023 9:55 PM Today's Date and Time: 12/08/2023, 5:14 PM Impression : Postop infection of left breast tissue professional wrestler-culture with mycobacterium abscessus New rash Acute kidney injury History of breast cancer S/p bilateral mastectomies S/p bilateral breast reconstruction October 28, 2023 History of DVT-on Eliquis Presence of Port-A-Cath Recommendations: Breast surgical cultures with Mycobacterium abscessus Repeat blood cultures preliminarily with no growth at 3 days Continue Cipro and clarithromycin Continue imipenem Patient developed rash after tigecycline infusion-discontinued yesterday Ambulatory referral placed for [facility] ID Dr. Lui for longterm management If patient remains afebrile, we will [...] 60 min Stress: Stress Concern Present (02/27/2022) [employer] [facility] [employer] - Occupational Stress Questionnaire Feeling of Stress : To some extent Social Connections: Socially Integrated (02/27/2022) Social Connection and Isolation Panel [NHANES] Frequency of Communication with Friends and Family: Twice a week Frequency of Social Gatherings with Friends and Family: Three times a week Attends Confucianism Services: More than 4 times per year [...] Value Units Date/Time Resp Pathogens Panel/SARS CoV-2 [[id number]] Collected: 12/05/23 1158 Specimen: Nasopharynx Updated: 12/05/23 [...] COV 2 Not Detected Blood culture #2 [[id number]] Collected: 12/05/23 1040 Specimen: Blood Updated: 12/08/23 1508 Culture NO GROWTH 3 DAYS Blood culture #1 [[id number]] Collected: 12/05/23 1031 Specimen: Blood Updated: 12/08/23 1507 Culture NO GROWTH 3 DAYS Urine culture [[id number]] Collected: 12/02/23 2305 Specimen: Urine, Clean Catch Midstream Updated: 12/04/23 0709 Culture NO GROWTH AT <1000 CFU/mL Blood culture [[id number]] Collected: 12/02/23 2231 Specimen: Blood, Line Draw Updated: 12/08/23 0817 Specimen Notes SUBOPTIMAL VOLUME OF BLOOD COLLECTED, RESULTS MAY BE AFFECTED. Culture NO GROWTH 5 DAYS Blood culture [[id number]] Collected: 12/02/23 2213 Specimen: Blood, Line Draw [...] call with questions. Gino Munguia APRN, CNP [phone] This note was completed using a voice chain carrier system. Every effort was made to ensure accuracy. However, inadvertent computerized chain carrier errors may be present. AMEENA Vallejo 12/08/23 3341 * Shereen Smallwood PA-C - 12/08/2023 3:46 PM EDT [facility] [address] [place] [address] [address] [place] [id number] Office Jhon Rosado MD, PhD AMEENA Kennedy PA-C Plastic Surgery Inpatient Progress Note Subjective: [...] Value Units Date/Time Resp Pathogens Panel/SARS CoV-2 [[id number]] Collected: 12/05/23 1158 Specimen: Nasopharynx Updated: 12/05/23 [...] COV 2 Not Detected Blood culture #2 [[id number]] Collected: 12/05/23 1040 Specimen: Blood Updated: 12/08/23 1508 Culture NO GROWTH 3 DAYS Blood culture #1 [[id number]] Collected: 12/05/23 1031 Specimen: Blood Updated: 12/08/23 1507 Culture NO GROWTH 3 DAYS Urine culture [[id number]] Collected: 12/02/23 2305 Specimen: Urine, Clean Catch Midstream Updated: 12/04/23 0709 Culture NO GROWTH AT <1000 CFU/mL Blood culture [[id number]] Collected: 12/02/23 2231 Specimen: Blood, Line Draw Updated: 12/08/23 0817 Specimen Notes SUBOPTIMAL VOLUME OF BLOOD COLLECTED, RESULTS MAY BE AFFECTED. Culture NO GROWTH 5 DAYS Blood culture [[id number]] Collected: 12/02/23 2213 Specimen: Blood, Line Draw Updated: 12/08/23 0813 Specimen Notes SUBOPTIMAL VOLUME OF BLOOD COLLECTED, RESULTS MAY BE AFFECTED. Culture NO GROWTH 5 DAYS Assessment: Ike Flannery is a 53 y.o. female Post-Operative Day: 11 s/p removal of left breast tissue professional wrestler with I&D. Plan: - Pain well controlled with Tylenol, oxycodone, Toradol, - Tolerating a regular diet - Optimize nutrition with protein supplementation at every meal - Repeat blood cultures are negative at 3 days - Continue Eliquis 5mg BID for DVT prophylaxis - Mycobacterium abscesses: Appreciate Infectious Disease antibiotic management guidance: Cipro, Biaxin, Primaxin -infectious disease sent referral for [facility] for follow-up - MIRNA: Improving - [...] BMP in 1 week and follow-up withMD /POLYSOMNOGRAPHY TECH in renal clinic in 1 months time. [...] 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, 2023 Hypertension Edema Depression/anxiety [...] ringer's, 100 mL/hr, Last Rate: 100 mL/hr (12/08/23 0618) Laboratory Studies Results from last 7 days [...] 8 (L) 01/31/2022 Please contact me at [phone] (Office) or [phone] (Answering service) with any questions. Please feel free to contact me through [employer] chat during the daytime hours, if no response after 5 minutes then call the answering service. Og Morton MD [facility] This note was created with the assistance of a speech-recognition program. Although the intention is to generate a document that actually reflects the content of the visit, no guarantees can be provided that every mistake has been identified and corrected by editing. * Amy Jack MD - 12/07/2023 7:02 PM EDT Images from the original note were not included. [facility] INTERNAL MEDICINE [facility] - 7 ONCOLOGY/STROKE [address] [place] [address] Hospital Medicine Progress Note Patient: Ike Flannery Date of : 1970 Room: [facility] PCP: RICHIE HANNA APRN-ESPERANZA Admission date: 12/02/2023 [...] tenderness or frontal sinus tenderness. Mouth/Throat: Lips: [place]. Mouth: Mucous membranes are moist. Pharynx: Oropharynx [...] ringer's, 100 mL/hr As Needed: acetaminophen albuterol yzajwsk-tnoepaewximcq-qounedwc calcium gluconate calcium gluconate calcium gluconate cyclobenzaprine [...] LIST Principal Problem: MIRNA (acute kidney injury) ([facility]) Active Problems: Hypertension Malignant neoplasm of lower-inner quadrant of right breast of female, estrogen receptor positive ([facility]) Cellulitis of left breast Infection of deep [...] 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, 2023 Hypertension Edema Depression/anxiety [...] Results from last 7 days Lab Units 12/07/2344912/06/23210912/06/2343412/05/23 1320 12/05/23 0545 SODIUM mmol/L 138 -- [...] Results from last 7 days Lab Units 12/07/2344912/06/235 12/05/23 0545 WBC X10E9/L 2.7* 3.0* 3.9* HEMOGLOBIN g/dL 7.8* 7.8* 7.6* HEMATOCRIT % 22.3* 23.0* 22.2* PLATELETS X10E9/L 150 172 195 Results from last 7 days Lab Units 12/07/2344912/06/23210912/06/23 0435 MAGNESIUM mg/dL 2.0 2.3 1.5* Lab Results Component Value Date CALCIUM 8.8 12/07/2023 Lab Results Component Value Date IRON <10 (L) 12/04/2023 TIBC 272 12/04/2023 FERRITIN 8 (L) 01/31/2022 Please contact me at [phone] (Office) or [phone] (Answering service) with any questions. Please feel free to contact me through [employer] chat during the daytime hours, if no response after 5 minutes then call the answering service. Og Morton MD [facility] This note was created with the [...] : Postop infection of left breast tissue professional wrestler-culture with mycobacterium abscessus New rash Acute kidney [...] 60 min Stress: Stress Concern Present (02/27/2022) [employer] [facility] [facility] [employer] [facility] - Occupational Stress Questionnaire Feeling of Stress : To some extent Social Connections: Socially Integrated (02/27/2022) Social Connection and Isolation Panel [NHANES] Frequency of Communication with Friends and Family: Twice a week Frequency of Social Gatherings with Friends and Family: Three times a week Attends Confucianism Services: More than 4 times per year [...] Results from last 7 days Lab Units 12/07/2344912/06/2343412/05/23 0545 WBC X10E9/L 2.7* 3.0* 3.9* HEMOGLOBIN g/dL 7.8* 7.8* 7.6* HEMATOCRIT % 22.3* 23.0* 22.2* PLATELETS X10E9/L 150 172 195 Results from last 7 days Lab Units 12/07/2344912/06/23 2110 12/06/2343412/05/23 1320 12/05/23 0545 POTASSIUM mmol/L 3.3* -- [...] Results from last 7 days Lab Units 12/07/2344912/06/2343412/05/23 0545 ALK PHOS U/L 56 55 58 ALT U/L 13 9 9 AST U/L 22 16 15 Lab Results Component Value Date CRP 2.6 (H) 11/26/2023 Lab Results Component Value Date SEDRATE 30 11/26/2023 Cultures: Microbiology Results Procedure Component Value Units Date/Time Resp Pathogens Panel/SARS CoV-2 [[id number]] Collected: 12/05/23 1158 Specimen: Nasopharynx Updated: 12/05/23 [...] COV 2 Not Detected Blood culture #2 [[id number]] Collected: 12/05/23 1040 Specimen: Blood Updated: 12/06/23 1508 Culture NO GROWTH 1 DAY Blood culture #1 [[id number]] Collected: 12/05/23 1031 Specimen: Blood Updated: 12/06/23 1507 Culture NO GROWTH 1 DAY Urine culture [[id number]] Collected: 12/02/23 2305 Specimen: Urine, Clean Catch Midstream Updated: 12/04/23 0709 Culture NO GROWTH AT <1000 CFU/mL Blood culture [[id number]] Collected: 12/02/23 2231 Specimen: Blood, Line Draw Updated: 12/07/23 0815 Specimen Notes SUBOPTIMAL VOLUME OF BLOOD COLLECTED, RESULTS MAY BE AFFECTED. Culture NO GROWTH 4 DAYS Blood culture [[id number]] Collected: 12/02/23 2213 Specimen: Blood, Line Draw [...] Please call with questions. Gino Munguia APRN, RETURNED CASE INSPECTOR [phone] This note was completed using a voice chain carrier system. Every effort was made to ensure accuracy. However, inadvertent computerized chain carrier errors may be present. Gino Munguia APRN-[facility] 12/07/23 7063 ICarlene MD, personally performed ukul-ay-qwrp diagnostic evaluation on this patient I reviewed and performed all the ross component of the patient visit I reviewed CELINA history, exam and MDM - Carlene Noguera MD 12/07/23 12:53 PM * Nikki Rand RPH - 12/07/2023 9:28 AM EDT [facility] Department of Pharmacy Pharmacist to Physician Communication The dose of ciprofloxacin for SSTI has been changed to 500 mg every 12 hours per the [facility] approved renal dosing guidelines, based on an estimated creatinine clearance is 35.1 mL/min (A) (by C-G formula based on SCr of 2.07 mg/dL (H)). Thank you, Nikki Rand RPH * Shereen Smallwood PA-C - 12/07/2023 8:13 AM EDT Images from the original note were not included. [facility] [address] [place] [address] Office Jhon Rosado MD, PhD Marisela Cuevas, REFLOW OPERATOR-RETURNED CASE INSPECTOR Shereen Smallwood PA-C Plastic Surgery Inpatient Progress [...] Value Units Date/Time Resp Pathogens Panel/SARS CoV-2 [[id number]] Collected: 12/05/23 1158 Specimen: Nasopharynx Updated: 12/05/23 [...] COV 2 Not Detected Blood culture #2 [[id number]] Collected: 12/05/23 1040 Specimen: Blood Updated: 12/07/23 1508 Culture NO GROWTH 2 DAYS Blood culture #1 [[id number]] Collected: 12/05/23 1031 Specimen: Blood Updated: 12/07/23 1507 Culture NO GROWTH 2 DAYS Urine culture [[id number]] Collected: 12/02/23 2305 Specimen: Urine, Clean Catch Midstream Updated: 12/04/23 0709 Culture NO GROWTH AT <1000 CFU/mL Blood culture [[id number]] Collected: 12/02/23 2231 Specimen: Blood, Line Draw Updated: 12/08/23 0817 Specimen Notes SUBOPTIMAL VOLUME OF BLOOD COLLECTED, RESULTS MAY BE AFFECTED. Culture NO GROWTH 5 DAYS Blood culture [[id number]] Collected: 12/02/23 2213 Specimen: Blood, Line Draw [...] and the importance of compliance with treatment. SHEREENINÉS EUGENE MD, PhD [facility] ' Shereen Smallwood PA-C 12/08/23 1124 * Elayne Chow MD - 12/06/2023 10:03 AM EDT Images from the original note were not included. [facility] INTERNAL MEDICINE [facility] - 7 ONCOLOGY/STROKE [address] [place] [address] Hospital Medicine Progress Note Patient: Ike Flannery Date of : 1970 Room: [facility] PCP: AMEENA GARCIA Admission date: 12/02/2023 9:55 [...] chills and was sent by infectious disease [facility] Interval History: Status: improved. No overnight [...] tenderness or frontal sinus tenderness. Mouth/Throat: Lips: [place]. Mouth: Mucous membranes are moist. Pharynx: Oropharynx [...] mL/hr (12/05/23 0641) As Needed: acetaminophen albuterol jhohawj-zstolageazyug-tytvgsrp calcium gluconate calcium gluconate calcium gluconate cyclobenzaprine [...] LIST Principal Problem: MIRNA (acute kidney injury) ([facility]-HCC) Active Problems: Hypertension Malignant neoplasm of lower-inner [...] electrolytes per protocol and scale Liliane Valle APRN-RETURNED CASE INSPECTOR 12/06/23 1436 Physician Attestation I personally performed [...] from last 7 days Lab Units 12/06/23 04312/05/23 0545 12/04/23 0305 12/03/23 1737 12/03/23 1628 [...] last 7 days Lab Units 12/06/2343412/05/2345 12/04/23 0305 12/03/23 0350 12/02/23 2213 WBC [...] 12/06/23 0435 12/05/23 0545 12/04/23 0305 12/03/23 0350 12/02/23 2213 GLUCOSE mg/dL 100* 95 91 103* 106* Results from last 7 days Lab Units 12/03/23 1628 CK TOTAL U/L 52 CURRENT MEDICATIONS: apixaban, 5 mg, oral, BID ciprofloxacin HCl, 500 mg, oral, Q24H RADHA clarithromycin, 500 mg, oral, Q12H ARDHA cyanocobalamin, 1,000 mcg, oral, Daily imipenem-cilastatin, 500 [...] 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, 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 Hypertension Edema Depression/anxiety [...] For questions please call: Answering Service at [phone] Or Office at [phone] This note was created with the assistance [...] : Postop infection of left breast tissue professional wrestler-culture growing acid-fast bacilli Acute kidney injury History [...] 60 min Stress: Stress Concern Present (02/27/2022) [employer] [facility] [facility] [employer] [facility] - Occupational Stress Questionnaire Feeling of Stress : To some extent Social Connections: Socially Integrated (02/27/2022) Social Connection and Isolation Panel [NHANES] Frequency of Communication with Friends and Family: Twice a week Frequency of Social Gatherings with Friends and Family: Three times a week Attends Confucianism Services: More than 4 times per year [...] Value Units Date/Time Resp Pathogens Panel/SARS CoV-2 [[id number]] Collected: 12/05/23 1158 Specimen: Nasopharynx Updated: 12/05/23 [...] COV 2 Not Detected Blood culture #2 [[id number]] Resulted: 12/05/23 1041 Specimen: Blood, Peripheral Draw Updated: 12/05/23 1041 Blood culture #1 [[id number]] Resulted: 12/05/23 1032 Specimen: Blood, Peripheral Draw Updated: 12/05/23 1032 Urine culture [[id number]] Collected: 12/02/23 2305 Specimen: Urine, Clean Catch Midstream Updated: 12/04/23 0709 Culture NO GROWTH AT <1000 CFU/mL Blood culture [[id number]] Collected: 12/02/23 2231 Specimen: Blood, Line Draw Updated: 12/05/23 0815 Specimen Notes SUBOPTIMAL VOLUME OF BLOOD COLLECTED, RESULTS MAY BE AFFECTED. Culture NO GROWTH 2 DAYS Blood culture [[id number]] Collected: 12/02/23 2213 Specimen: Blood, Line Draw Updated: 12/05/2315 Specimen Notes SUBOPTIMAL VOLUME OF BLOOD COLLECTED, [...] This note was completed using a voice chain carrier system. Every effort was made to ensure accuracy. However, inadvertent computerized chain carrier errors may be present. * Dorothy Morales, [facility] - 12/05/2023 6:53 PM EDT Pharmacy Consult [...] Hollis PA-C 5 mg at 12/05/23 0904 blarrfs-rtztrzmwxmijh-tqpekkgt (EXCEDRIN MIGRAINE) 250-250-65 mg per tablet 2 tablet 2 tablet oral Q6H PRN Liliane Valle APRN-RETURNED CASE INSPECTOR 2 tablet at 12/04/23 0809 calcium gluconate 3,000 mg in sodium chloride 0.9 % 100 mL IVPB 3,000 mg intravenous PRN Epifanio Henry MD calcium gluconate 4,000 mg in sodium chloride 0.9 % 250 mL IVPB 4,000 mg intravenous PRN Epiafnio Henry MD calcium gluconate IVPB 2000 mg/100 [...] mcg 1,000 mcg oral Daily Liliane Valle APRN-ESPERANZA cyclobenzaprine (FLEXERIL) tablet 10 mg 10 mg [...] 100 mL IVPB 200 mg intravenous Daily AMEENA Rae Stopped at 12/05/23 1248 labetaloL (NORMODYNE,TRANDATE) injection [...] Carlene Noguera MD 220 mL/hr at 12/05/23 183 100 mg at 12/05/23 1836 Followed by [...] from the original note were not included. [facility] - ONCOLOGY/STROKE [address] [facility] [address] Hospital Medicine Progress Note Patient: Ike Flannery Date of : 1970 Room: [facility] PCP: AMEENA GARCIA Admission date: 12/02/2023 9:55 [...] tenderness or frontal sinus tenderness. Mouth/Throat: Lips: [place]. Mouth: Mucous membranes are moist. Pharynx: Oropharynx [...] mL/hr (12/05/23 0641) As Needed: acetaminophen albuterol cqnmkay-ouxvhfrhquihm-mnjhntzs calcium gluconate calcium gluconate calcium gluconate cyclobenzaprine [...] LIST Principal Problem: MIRNA (acute kidney injury) ([facility]) Active Problems: Hypertension Malignant neoplasm of lower-inner quadrant of right breast of female, estrogen receptor positive ([facility]) Cellulitis of left breast Infection of deep [...] Abx changes made per ID. Liliane Valle, REFLOW OPERATOR-RETURNED CASE INSPECTOR 12/05/23 1527 Physician Attestation I personally performed [...] 7 days Lab Units 12/05/23 0545 12/04/23 03012/03/23 1737 12/03/23 16212/03/2334912/02/23 23012/02/23 221 TOTAL PROTEIN g/dL 5.6* 5.4* [...] 7 days Lab Units 12/05/23 0545 12/04/23 03012/03/2334912/02/23221211/30/23 0930 WBC X10E9/L 3.9* 4.3 5.8 7.8 6.5 HEMOGLOBIN g/dL 7.6* 7.3* 8.0* 9.1* 8.8* HEMATOCRIT % 22.2* 21.2* 22.9* 26.0* 25.2* PLATELETS X10E9/L 195 201 233 279 294 Lab Results Component Value Date IRON <10 (L) 12/04/2023 TIBC 272 12/04/2023 FERRITIN 8 (L) 01/31/2022 IRONSAT <4 (L) 12/04/2023 Results from last 7 days Lab Units 12/05/23 0545 12/04/23 03012/03/23 03512/02/23221211/30/23 0930 GLUCOSE mg/dL 95 91 103* 106* 84 Results from last 7 days Lab Units 12/03/23162711/28/23 1551 CK TOTAL U/L 52 45 CURRENT MEDICATIONS: apixaban, 5 mg, oral, BID ciprofloxacin HCl, 500 mg, oral, Q24H RADHA clarithromycin, 500 mg, oral, Q12H RADHA metoprolol succinate XL, 100 mg, oral, Daily sodium chloride, 3 mL, intravenous, Q12H [facility] PROBLEM LIST: Acute kidney injury which [...] 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 Although the intention is to generate a document that actually reflects the content of the visit, no guarantees can be provided that every mistake has been identified and corrected by editing. * Elayne Chow MD - 12/04/2023 3:39 PM EDT Images from the original note were not included. [facility] PHYSICIANS [facility] INTERNAL MEDICINE [facility] DIV[facility] OF [facility] - ONCOLOGY/STROKE [address] [place] [id number] [facility] Medicine Progress Note Patient: Ike Flannery Date of : 1970 Room: [facility] PCP: AMEENA GARCIA Admission date: 12/02/2023 9:55 [...] chills and was sent by infectious disease [facility] Interval History: Status: improved. No overnight [...] tenderness or frontal sinus tenderness. Mouth/Throat: Lips: [place]. Mouth: Mucous membranes are moist. Pharynx: Oropharynx [...] mL/hr (12/04/23 1212) As Needed: acetaminophen albuterol sqdtnbl-utsjpplnctodu-wcpmvdmh calcium gluconate calcium gluconate calcium gluconate cyclobenzaprine [...] Protein Urine Random 130 (H) <120 mg/L U/Pro/[facility] Ratio Calc 0.30 (H) <0.2 Sodium, urine, [...] LIST Principal Problem: MIRNA (acute kidney injury) ([facility]) Active Problems: Hypertension Malignant neoplasm of lower-inner quadrant of right breast of female, estrogen receptor positive ([facility]) Cellulitis of left breast Infection [...] and the plan . MD Liliane Madrid, REFLOW OPERATOR-RETURNED CASE INSPECTOR 12/04/23 3314 * Carlene Noguera MD - 12/04/2023 11:27 AM EDT Images from the original note were not included. 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-culture growing acid-fast bacilli Acute kidney injury History [...] 60 min Stress: Stress Concern Present (02/27/2022) [facility] - Occupational Stress Questionnaire Feeling of Stress : To some extent Social Connections: Socially Integrated (02/27/2022) Social Connection and Isolation Panel [NHANES] Frequency of Communication with Friends and Family: Twice a week Frequency of Social Gatherings with Friends and Family: Three times a week Attends Confucianism Services: More than 4 times per year [...] Procedure Component Value Units Date/Time Urine culture [[id number]] Collected: 12/02/23 2305 Specimen: Urine, Clean Catch Midstream Updated: 12/04/23 0709 Culture NO GROWTH AT <1000 CFU/mL Blood culture [[id number]] Collected: 12/02/23 2231 Specimen: Blood, Line Draw Updated: 12/04/23 0815 Specimen Notes SUBOPTIMAL VOLUME OF BLOOD COLLECTED, RESULTS MAY BE AFFECTED. Culture NO GROWTH 1 DAY Blood culture [[id number]] Collected: 12/02/23 2213 Specimen: Blood, Line Draw Updated: 12/04/23 0815 Specimen Notes SUBOPTIMAL VOLUME OF BLOOD COLLECTED, RESULTS MAY BE AFFECTED. Culture NO GROWTH 1 DAY Anaerobic culture [[id number]] Collected: 11/27/23 1548 Specimen: Body Fluid from Breast, Left Updated: 12/02/23 0851 Specimen Notes SPECIMEN A Culture NO GROWTH 5 DAYS Fungal culture includes fungal smear [[id number]] Collected: 11/27/23 1548 Specimen: Body Fluid from Breast, Left Updated: 11/28/23 0702 Specimen Notes SPECIMEN A Fungal smear -- NO FUNGAL ELEMENTS SEEN ON DIRECT SMEAR Culture PENDING AFB culture concentrated includes AFB smear [[id number]] (Abnormal) Collected: 11/27/23 1548 Specimen: Body Fluid from Breast, Left Updated: 12/01/23 1056 Specimen Notes SPECIMEN A AFB Smear NO ACID FAST BACILLI (CONCENTRATED SMEAR) Culture ACID FAST BACILLI ISOLATED Aspirate culture includes gram stain [[id number]] (Abnormal) Collected: 11/27/23 1548 Specimen: Aspirate Atr Updated: 12/01/231543 Specimen Notes SPECIMEN A Gram Stain Result [...] This note was completed using a voice chain carrier system. Every effort was made to ensure accuracy. However, inadvertent computerized chain carrier errors may be present. * DAVID Tinajero [...] right breast of female, estrogen receptor positive ([facility]) S/P breast reconstruction, bilateral Cellulitis of left breast MIRNA (acute kidney injury) ([facility]) Past Medical History: Past Medical History: Diagnosis Date Breast cancer ([facility]) 2023 mammary carcinoma Deep vein thrombosis ([facility]) 09/18/2023 Left calf Hypertension Knee pain PONV (postoperative nausea and vomiting) Port-A-Cath in place 05/13/2023 Visual impairment Glasses Past Surgical History: Past Surgical History: Procedure Laterality Date ARTHROSCOPIC REPAIR ACL Right 2006 ARTHROSCOPIC REPAIR ACL Left 08/26/2021 BREAST BIOPSY Right 2023 mammary carcinoma EXCISION LYMPH NODE AXILLARY DISSECTION Right 10/28/2023 Performed by Christy He MD at [facility] HYSTERECTOMY IMMEDIATE BREAST RECONSTRUCTION WITH TISSUE SAW CLEANER PLACEMENT Bilateral 10/28/2023 Performed by Jhon Rosado MD at [facility] INCISION DRAINAGE BREAST Left 11/27/2023 Performed by Jhon Rosado MD at [facility] MAGNETIC SEED LOCALIZATION EXCISION/BIOPSY MASS BREAST (MAG SEED LOCALIZED TARGETED DISSECTION FOR RETRIEVAL OF PREVIOUSLY CLIPPED LYMPH NODE) Right 10/28/2023 Performed by Christy He MD at [facility] MASTECTOMY BREAST SIMPLE RISK REDUCING SKIN SPARING Left 10/28/2023 Performed by Christy He MD at [facility] MASTECTOMY BREAST SIMPLE SKIN SPARING Right 10/28/2023 Performed by Christy He MD at [facility] MENISCECTOMY Bilateral 2022 PORTACATH PLACEMENT Left left chest REMOVAL SAW CLEANER TISSUE BREAST Left 11/27/2023 Performed by Jhon Rosado MD at [facility] RIGHT AXILLARY PROPHYLACTIC BYPASS LYMPHOVENOUS Right 10/28/2023 Performed by Jhon Rosado MD at [facility] TONSILLECTOMY AND ADENOIDECTOMY Age 3 TUMOR REMOVAL [...] from last 3 days Lab Units 12/04/23 030 PHOSPHORUS mg/dL 3.9 CALCIUM, IONIZED mg/dL 5.0 [...] VERYLOWLIP 16 01/31/2022 No results found for: [id number] No results found for: FOLATE No results [...] Hollis PA-C 5 mg at 12/04/23 0809 flphdap-glpgtcpjfxxwu-mcukqidj (EXCEDRIN MIGRAINE) 250-250-65 mg per tablet 2 tablet 2 tablet oral Q6H PRN Liliane Valle APRN-RETURNED CASE INSPECTOR 2 tablet at 12/04/23 0809 calcium gluconate [...] Chris Hollis PA-C 3 mL at 12/04/23 08 traZODone (DESYREL) tablet 50 mg 50 mg oral Nightly PRN Chris Hollis PA-C Nutrition Focused Physical Findings 12/03 Renal ultrasound is scheduled for today. No BM noted since admission - PRN bowel meds noted. Skin (per nursing flow sheets): Skin Color: [place]; Pale (12/04/23804) Skin Temp: Warm; Dry (12/04/23804) [...] Diet Type: Regular Texture Other Modifiers: Cardiac 12/02/236 Diet Intakes: Nothing recorded in Flowsheets. Nursing [...] Scale, 12/02) Usual Body Weight: see above [place] Body Weight: 70.4 kg Percent [place] Body Weight: 138% Weight Changes: Weight fluctuations noted. With weight loss of 18 lbs x 5 months, 8% Body Mass Index: Body mass index is 29.79 kg/m . BMI Category: Pre-obese (25.00- 29.99) Comparative Standards: Estimated Energy Needs: 0326-4351 kcals daily. Method and weight used: 25-30 kcal/kg IBW Estimated Protein Needs: 84-141 grams daily. Method and weight used: 1.2-2 g protein/kg IBW Estimated Fluid Needs: 5790-6333 ml daily. Method weight used: 25-30 ml/kg [...] ofcare. Jessenia Key RD,LD Clinical Dietitian Office: [phone] * Epifanio Henry MD - 12/04/2023 9:41 [...] 12/03/23 1628 12/03/23 0350 12/02/23 2305 12/02/23 221 TOTAL PROTEIN g/dL 5.4* -- 5.4* 5.5* [...] last 7 days Lab Units 12/04/23 03012/03/23 0350 12/02/23221211/30/23 0930 WBC X10E9/L 4.3 5.8 7.8 6.5 HEMOGLOBIN g/dL 7.3* 8.0* 9.1* 8.8* HEMATOCRIT % 21.2* 22.9* 26.0* 25.2* PLATELETS X10E9/L 201 233 279 294 Lab Results Component Value Date IRON 43 (L) 01/31/2022 TIBC 519 (H) 01/31/2022 FERRITIN 8 (L) 01/31/2022 IRONSAT 8 (L) 01/31/2022 Results from last 7 days Lab Units 12/04/23 03012/03/23 0350 12/02/23221211/30/23 0930 GLUCOSE mg/dL 91 103* 106* 84 Results from last 7 days Lab Units 12/03/23 16211/28/23 1551 CK TOTAL U/L 52 45 CURRENT [...] 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 Although the intention is to generate a document that actually reflects the content of the visit, no guarantees can be provided that every mistake has been identified and corrected by editing. * Shereen Smallwood PA-C - 12/04/2023 8:59 AM EDT Images from the original note were not included. [facility] [address] [place] [address] Office Jhon Rosado MD, PhD Marisela Cuevas, REFLOW OPERATOR-RETURNED CASE INSPECTOR Shereen Smallwood PA-C Plastic Surgery Inpatient Progress [...] Procedure Component Value Units Date/Time Urine culture [[id number]] Collected: 12/02/23 2305 Specimen: Urine, Clean Catch Midstream Updated: 12/04/23 0709 Culture NO GROWTH AT <1000 CFU/mL Blood culture [[id number]] Collected: 12/02/23 2231 Specimen: Blood, Line Draw Updated: 12/04/23 0815 Specimen Notes SUBOPTIMAL VOLUME OF BLOOD COLLECTED, RESULTS MAY BE AFFECTED. Culture NO GROWTH 1 DAY Blood culture [[id number]] Collected: 12/02/23 2213 Specimen: Blood, Line Draw Updated: 12/04/23 0815 Specimen Notes SUBOPTIMAL VOLUME OF BLOOD COLLECTED, RESULTS MAY BE AFFECTED. Culture NO GROWTH 1 DAY Anaerobic culture [[id number]] Collected: 11/27/23 1548 Specimen: Body Fluid from Breast, Left Updated: 12/02/23 0851 Specimen Notes SPECIMEN A Culture NO GROWTH 5 DAYS Fungal culture includes fungal smear [[id number]] Collected: 11/27/23 1548 Specimen: Body Fluid from Breast, Left Updated: 11/28/23 0702 Specimen Notes SPECIMEN A Fungal smear -- NO FUNGAL ELEMENTS SEEN ON DIRECT SMEAR Culture PENDING AFB culture concentrated includes AFB smear [[id number]] (Abnormal) Collected: 11/27/23 1548 Specimen: Body Fluid from Breast, Left Updated: 12/01/23 1056 Specimen Notes SPECIMEN A AFB Smear NO ACID FAST BACILLI (CONCENTRATED SMEAR) Culture ACID FAST BACILLI ISOLATED Aspirate culture includes gram stain [[id number]] (Abnormal) Collected: 11/27/23 1548 Specimen: Aspirate Atr Updated: 12/01/23 1544 Specimen Notes SPECIMEN A Gram Stain Result >25 WHITE BLOOD CELLS/LPF 0 SQUAMOUS EPITHELIAL CELLS/LPF NO ORGANISMS SEEN Culture MODERATE ACID FAST BACILLI ISOLATED REPORT UPDATED GROWTH OBSERVED AT 48 HOURS Assessment: Ike Flannery is a 53 y.o. 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 Patient was initially referred to [facility] however this is out of network for her insurance, referrals were sent to [facility], [facility] and [facility]. [facility] is out of network, however [facility] could not get her in until December or January. Currently waiting to hear back from [facility]. - patient transitioned to oral clindamycin and Cipro for antibiotic coverage and MIRNA secondary to vancomycin. All questions were answered to her satisfaction. She was counseled regarding my impressions, instructions for management and the importance of compliance with treatment. INÉS PAYNE MD, PhD [facility] Shereen Smallwood PA-C 12/04/23 0906 * Shereen Smallwood PA-C - 12/03/2023 8:58 AM EDT Images from the original note were not included. [facility] [address] [place] [address] Office Jhon Rosado MD, PhD Marisela Cuevas, REFLOW OPERATOR-RETURNED CASE INSPECTOR Shereen Smallwood PA-C Plastic Surgery Inpatient Progress [...] Procedure Component Value Units Date/Time Urine culture [[id number]] Collected: 12/02/23 2341 Specimen: Urine Updated: 12/03/23 0829 Blood culture [[id number]] Collected: 12/02/232235 Specimen: Blood, Peripheral Draw Updated: 12/02/232235 Blood culture [[id number]] Collected: 12/02/232235 Specimen: Blood, Peripheral Draw Updated: 12/02/232235 Anaerobic culture [[id number]] Collected: 11/27/23 154 Specimen: Body Fluid from Breast, Left Updated: 12/02/23 0851 Specimen Notes SPECIMEN A Culture NO GROWTH 5 DAYS Fungal culture includes fungal smear [[id number]] Collected: 11/27/23 154 Specimen: Body Fluid from Breast, Left Updated: 11/28/23 0702 Specimen Notes SPECIMEN A Fungal smear -- NO FUNGAL ELEMENTS SEEN ON DIRECT SMEAR Culture PENDING AFB culture concentrated includes AFB smear [[id number]] (Abnormal) Collected: 11/27/23 1548 Specimen: Body Fluid from Breast, Left Updated: 12/01/23 1056 Specimen Notes SPECIMEN A AFB Smear NO ACID FAST BACILLI (CONCENTRATED SMEAR) Culture ACID FAST BACILLI ISOLATED Aspirate culture includes gram stain [[id number]] (Abnormal) Collected: 11/27/23 1548 Specimen: Aspirate Atr Updated: 12/01/23 1544 Specimen Notes SPECIMEN A Gram Stain Result >25 WHITE BLOOD CELLS/LPF 0 SQUAMOUS EPITHELIAL CELLS/LPF NO ORGANISMS SEEN Culture MODERATE ACID FAST BACILLI ISOLATED REPORT UPDATED GROWTH OBSERVED AT 48 HOURS Mrsa Pcr nasal swab [[id number]] Collected: 11/27/23 0020 Specimen: Nasal Updated: 11/27/23 0957 Mrsa PCR Negative Blood culture [[id number]] Collected: 11/26/23 1715 Specimen: Blood Updated: 12/01/232007 Culture NO GROWTH 5 DAYS Assessment: Ike Flannery is a 53 y.o. 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 - patient with positive id from her office aspirate as well as intraoperative cultures. Infectious Disease was reaching out for referral to [facility]. Patient lives in [place], wondering if [facility] would be an option. - infectious disease [...] Smallwood PA-C 12/04/23 0858 * Nathaniel Narvaez [facility] - 12/02/2023 11:19 PM EDT Pharmacy was [...] serum creatinine please re-consult. [facility] Miscellaneous Notes* Telephone Encounter - Nabila Mora CMA - 12/09/2023 3:43 PM EDT IKE FLANNERY (Ross: [id number]) [facility] to your [facility] request. You may close this dialog, return to your dashboard, and perform other tasks. To check for an update later, open this request again from your dashboard. If [employer] has not replied to your request within 24 hours please contact [email or web address] at (TTY ) PA form to be scanned into chart. documented in this encounterTr[facility]10-[facility]-2024 Telephone encounter Note* Telephone Encounter - Nabila Mora CMA - 12/09/2023 3:43 PM EDT IKE FLANNERY (Ross: [id number]) [employer] has not yet replied to your PA request. You may close this dialog, return to your dashboard, and perform other tasks. To check for an update later, open this request again from your dashboard. If [employer] has not replied to your request within 24 hours please contact [email or web address] at (TTY ) PA form to be scanned into chart. [facility] Plan of care note* Plan of Care - Kahlil Gregorio RN - 12/09/2023 3:21 PM EDT Patient remains free of falls and injuries. Patient also continues to deny any pain. [facility] Miscellaneous Notes* Plan of Care - Kahlil Gregorio RN - 12/09/2023 3:21 PM EDT Patient remains free of falls and injuries. Patient also continues to deny any pain. * Plan of Care - Aliza Benito RN - 12/09/2023 4:18 AM EDT Problem: Low Risk Fall Score Description: [place] Fall Score of 0 - 24 or indicated by [facility] Assessment Goal: Patient should be free from fall Description: Interventions: 1. [place] to environment 2. Hourly rounds addressing the [...] non-skid footwear 11. Teach patient and patient investment representative to maintain environment for safety and engage in all aspects of fall prevention program Outcome: Progressing Note: Evaluation of progress towards goal: Pt remains free from falls. Will continue to provide a safe environment. Problem: Pain Goal: Patient goal is pain score less than 4, able to rest, and participant in treatment plan as appropriate Description: INTERVENTIONS: 1. Encourage patient or legal investment representative to report early pain and ask [...] per policy 9. Teach patient or legal investment representative interventions for comforting Outcome: Progressing Note: [...] at the bedside 7. Instruct patient/ patient investment representative about use of safety devices 8. Include patient/ patient investment representative in decisions related to safety Outcome: [...] hygiene technique 7. Identify and instruct patient/patient investment representative in use of appropriate isolation precautionsfor identified infection/symptoms 8. Provide and discuss with patient/patient investment representative on educational MDRO sheet 9. Encourage and monitor nutritional status daily and consult product strategy director if indicated 10. Implement neutropenic guidelines as needed 11. Review exposure to history of communicable disease and recent travel history on admission 12. Encourage annual influenza vaccine 13. Encourage pneumonia vaccine Outcome: Progressing Note: Evaluation of progress towards goal: pt remains afebrile, currently on antibiotics Problem: Knowledge Deficit Goal: Patient/patient investment representative demonstrates understanding of disease process, treatment [...] Collaborate with ancillary departments 14. Include patient/patient investment representative in decisions related to anxiety Outcome: [...] care 6. Collaborate with pastoral/spiritual care, social director, mental health counselor as needed. 7. Instruct patient on diversional activities such as physical activity, distraction, and deep breathing exercises to assist with coping 8. Involve patient's investment representative in care Outcome: Progressing Note: Evaluation [...] hydration as ordered 5. Instruct patient/ legal investment representative on nutrition/diet; fluid/hydration restrictions as appropriate Outcome: Progressing Note: Evaluation of progress towards goal: electrolytes are continuing to be monitored and replacedper protocol * Plan of Care - Claudia Masterson, CERTIFIED ORTHOTIST - 12/08/2023 3:27 PM EDT Problem: Low Risk Fall Score Description: [place] Fall Score of 0 - 24 or indicated by [facility] Assessment Goal: Patient should be free from fall Description: Interventions: 1. [place] to environment 2. Hourly rounds addressing the [...] non-skid footwear 11. Teach patient and patient investment representative to maintain environment for safety and engage in all aspects of fall prevention program Outcome: Progressing Note: Evaluation of progress towards goal: pt remains free from falls at this time. Problem: Pain Goal: Patient goal is pain score less than 4, able to rest, and participant in treatment plan as appropriate Description: INTERVENTIONS: 1. Encourage patient or legal investment representative to report early pain and ask [...] per policy 9. Teach patient or legal investment representative interventions for comforting Outcome: Progressing Note: [...] at the bedside 7. Instruct patient/ patient investment representative about use of safety devices 8. Include patient/ patient investment representative in decisions related to safety Outcome: [...] hygiene technique 7. Identify and instruct patient/patient investment representative in use of appropriate isolation precautionsfor identified infection/symptoms 8. Provide and discuss with patient/patient investment representative on educational MDRO sheet 9. Encourage and monitor nutritional status daily and consult product strategy director if indicated 10. Implement neutropenic guidelines as needed 11. Review exposure to history of communicable disease and recent travel history on admission 12. Encourage annual influenza vaccine 13. Encourage pneumonia vaccine Outcome: Progressing Note: Evaluation of progress towards goal: pt remains afebrile at this time. Problem: Knowledge Deficit Goal: Patient/patient investment representative demonstrates understanding of disease process, treatment [...] Collaborate with ancillary departments 14. Include patient/patient investment representative in decisions related to anxiety Outcome: [...] care 6. Collaborate with pastoral/spiritual care, social director, mental health counselor as needed. 7. Instruct patient on diversional activities such as physical activity, distraction, and deep breathing exercises to assist with coping 8. Involve patient's investment representative in care Outcome: Progressing Note: Evaluation [...] hydration as ordered 5. Instruct patient/ legal investment representative on nutrition/diet; fluid/hydration restrictions as appropriate Outcome: Progressing Note: Evaluation of progress towards goal: electrolytes replaced within normal limits at this time. * Discharge Planning Note - Mariah Starr RN - 12/08/2023 3:23 PM EDT DISCHARGE PLANNING NOTE Patient discussed in DTRs. Barrier to discharge is ID plan. 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 Task sent to [facility] to get appointment set up. Plan is for patient to be discharged on Primaxin IV - sent [facility] cost. - MARIAH STARR RN 12/08/23 3:26 PM Primaxin IV is 100% covered. Script and prior auth sent to [employer]. Medication will be delivered to the patient's home between 5-9pm. Spoke with Skye at [facility] and they have the standing order for weekly labs and weekly dressing change. Patient updated and agreeable with plan to discharge home this afternoon. Patient has appointment set for 01/14/[address] Herman Lui. - MARIAH STARR RN 12/09/23 2:19 PM CRF sent to [facility]. - MARIAH STARR RN 12/09/23 3:04 PM * Plan of Care - Aliza Benito RN - 12/08/2023 3:32 AM EDT Problem: Low Risk Fall Score Description: Pickens Fall Score of 0 - 24 or indicated by [facility] Assessment Goal: Patient should be free from fall Description: Interventions: 1. [place] to environment 2. Hourly rounds addressing the [...] non-skid footwear 11. Teach patient and patient investment representative to maintain environment for safety and engage in all aspects of fall prevention program Outcome: Progressing Note: Evaluation of progress towards goal: Pt remains free from falls. Will continue to provide a safe environment. Problem: Pain Goal: Patient goal is pain score less than 4, able to rest, and participant in treatment plan as appropriate Description: INTERVENTIONS: 1. Encourage patient or legal investment representative to report early pain and ask [...] per policy 9. Teach patient or legal investment representative interventions for comforting Outcome: Progressing Note: [...] at the bedside 7. Instruct patient/ patient investment representative about use of safety devices 8. Include patient/ patient investment representative in decisions related to safety Outcome: [...] hygiene technique 7. Identify and instruct patient/patient investment representative in use of appropriate isolation precautionsfor identified infection/symptoms 8. Provide and discuss with patient/patient investment representative on educational MDRO sheet 9. Encourage and monitor nutritional status daily and consult product strategy director if indicated 10. Implement neutropenic guidelines as needed 11. Review exposure to history of communicable disease and recent travel history on admission 12. Encourage annual influenza vaccine 13. Encourage pneumonia vaccine Outcome: Progressing Note: Evaluation of progress towards goal: pt remains afebrile at this time, antibiotics are administered as ordered Problem: Knowledge Deficit Goal: Patient/patient investment representative demonstrates understanding of disease process, treatment [...] Collaborate with ancillary departments 14. Include patient/patient investment representative in decisions related to anxiety Outcome: [...] care 6. Collaborate with pastoral/spiritual care, social director, mental health counselor as needed. 7. Instruct patient on diversional activities such as physical activity, distraction, and deep breathing exercises to assist with coping 8. Involve patient's investment representative in care Outcome: Progressing Note: Evaluation [...] hydration as ordered 5. Instruct patient/ legal investment representative on nutrition/diet; fluid/hydration restrictions as appropriate [...] Description: INTERVENTIONS: 1. Encourage patient or legal investment representative to report early pain and ask [...] per policy 9. Teach patient or legal investment representative interventions for comforting Outcome: Progressing Note: [...] at the bedside 7. Instruct patient/ patient investment representative about use of safety devices 8. Include patient/ patient investment representative in decisions related to safety Outcome: [...] hygiene technique 7. Identify and instruct patient/patient investment representative in use of appropriate isolation precautionsfor identified infection/symptoms 8. Provide and discuss with patient/patient investment representative on educational MDRO sheet 9. Encourage and monitor nutritional status daily and consult product strategy director if indicated 10. Implement neutropenic guidelines as needed 11. Review exposure to history of communicable disease and recent travel history on admission 12. Encourage annual influenza vaccine 13. Encourage pneumonia vaccine Outcome: Progressing Note: Evaluation of progress towards goal: pt afebrile. WBC 2.7 Problem: Knowledge Deficit Goal: Patient/patient investment representative demonstrates understanding of disease process, treatment [...] be free from fall Description: Interventions: 1. [place] to environment 2. Hourly rounds addressing the [...] non-skid footwear 11. Teach patient and patient investment representative to maintain environment for safety and engage in all aspects of fall prevention program Outcome: Progressing Note: Evaluation of progress towards goal: Pt remains free from falls. Will continue to provide a safe environment. Problem: Pain Goal: Patient goal is pain score less than 4, able to rest, and participant in treatment plan as appropriate Description: INTERVENTIONS: 1. Encourage patient or legal investment representative to report early pain and ask [...] per policy 9. Teach patient or legal investment representative interventions for comforting Outcome: Progressing Note: [...] at the bedside 7. Instruct patient/ patient investment representative about use of safety devices 8. Include patient/ patient investment representative in decisions related to safety Outcome: [...] hygiene technique 7. Identify and instruct patient/patient investment representative in use of appropriate isolation precautionsfor identified infection/symptoms 8. Provide and discuss with patient/patient investment representative on educational MDRO sheet 9. Encourage and monitor nutritional status daily and consult product strategy director if indicated 10. Implement neutropenic guidelines as needed 11. Review exposure to history of communicable disease and recent travel history on admission 12. Encourage annual influenza vaccine 13. Encourage pneumonia vaccine Outcome: Progressing Note: Evaluation of progress towards goal: patient remains on antibiotics at this time, monitoring for s/s of infection Problem: Knowledge Deficit Goal: Patient/patient investment representative demonstrates understanding of disease process, treatment [...] Collaborate with ancillary departments 14. Include patient/patient investment representative in decisions related to anxiety Outcome: [...] care 6. Collaborate with pastoral/spiritual care, social director, mental health counselor as needed. 7. Instruct patient on diversional activities such as physical activity, distraction, and deep breathing exercises to assist with coping 8. Involve patient's investment representative in care Outcome: Progressing Note: Evaluation [...] hydration as ordered 5. Instruct patient/ legal investment representative on nutrition/diet; fluid/hydration restrictions as appropriate Outcome: Progressing Note: Evaluation of progress towards goal: electrolytes are within range at this time * Plan of Care - Alisha Richardson RN - 12/06/2023 9:51 AM EDT Problem: Pain Goal: Patient goal is pain score less than 4, able to rest, and participant in treatment plan as appropriate Description: INTERVENTIONS: 1. Encourage patient or legal investment representative to report early pain and ask [...] per policy 9. Teach patient or legal investment representative interventions for comforting Outcome: Progressing Note: [...] at the bedside 7. Instruct patient/ patient investment representative about use of safety devices 8. Include patient/ patient investment representative in decisions related to safety Outcome: [...] hygiene technique 7. Identify and instruct patient/patient investment representative in use of appropriate isolation precautionsfor identified infection/symptoms 8. Provide and discuss with patient/patient investment representative on educational MDRO sheet 9. Encourage and monitor nutritional status daily and consult product strategy director if indicated 10. Implement neutropenic guidelines as needed 11. Review exposure to history of communicable disease and recent travel history on admission 12. Encourage annual influenza vaccine 13. Encourage pneumonia vaccine Outcome: Progressing Note: Evaluation of progress towards goal: pt afebrile this AM. WBC 3.0 Positive Wound culture [facility] Problem: Knowledge Deficit Goal: Patient/patient investment representative demonstrates understanding of disease process, treatment [...] of 0 - 24 or indicated by [facility] Assessment Goal: Patient should be free from fall Description: Interventions: 1. [place] to environment 2. Hourly rounds addressing the [...] non-skid footwear 11. Teach patient and patient investment representative to maintain environment for safety and engage in all aspects of fall prevention program Outcome: Progressing Note: Evaluation of progress towards goal: pt remains free from falls. Pt independent in room. Problem: Pain Goal: Patient goal is pain score less than 4, able to rest, and participant in treatment plan as appropriate Description: INTERVENTIONS: 1. Encourage patient or legal investment representative to report early pain and ask [...] per policy 9. Teach patient or legal investment representative interventions for comforting Outcome: Progressing Note: [...] at the bedside 7. Instruct patient/ patient investment representative about use of safety devices 8. Include patient/ patient investment representative in decisions related to safety Outcome: [...] hygiene technique 7. Identify and instruct patient/patient investment representative in use of appropriate isolation precautionsfor identified infection/symptoms 8. Provide and discuss with patient/patient investment representative on educational MDRO sheet 9. Encourage and monitor nutritional status daily and consult product strategy director if indicated 10. Implement neutropenic guidelines as needed 11. Review exposure to history of communicable disease and recent travel history on admission 12. Encourage annual influenza vaccine 13. Encourage pneumonia vaccine Outcome: Progressing Note: Evaluation of progress towards goal: pt continues with intermittent fevers. Prn meds available. Problem: Knowledge Deficit Goal: Patient/patient investment representative demonstrates understanding of disease process, treatment [...] hydration as ordered 5. Instruct patient/ legal investment representative on nutrition/diet; fluid/hydration restrictions as appropriate Outcome: Progressing Note: Evaluation of progress towards goal: monitoring pt's labs and electrolytes. Replacing when needed. * Plan of Care - Claudia Masterson LPN - 12/05/2023 1:17 PM EDT Problem: Low Risk Fall Score Description: [place] Fall Score of 0 - 24 or indicated by [facility] Assessment Goal: Patient should be free from fall Description: Interventions: 1. [place] to environment 2. Hourly rounds addressing the [...] non-skid footwear 11. Teach patient and patient investment representative to maintain environment for safety and engage in all aspects of fall prevention program Outcome: Progressing Note: Evaluation of progress towards goal: pt free from falls at this time. Problem: Pain Goal: Patient goal is pain score less than 4, able to rest, and participant in treatment plan as appropriate Description: INTERVENTIONS: 1. Encourage patient or legal investment representative to report early pain and ask [...] per policy 9. Teach patient or legal investment representative interventions for comforting Outcome: Progressing Note: [...] at the bedside 7. Instruct patient/ patient investment representative about use of safety devices 8. Include patient/ patient investment representative in decisions related to safety Outcome: [...] hygiene technique 7. Identify and instruct patient/patient investment representative in use of appropriate isolation precautionsfor identified infection/symptoms 8. Provide and discuss with patient/patient investment representative on educational MDRO sheet 9. Encourage and monitor nutritional status daily and consult product strategy director if indicated 10. Implement neutropenic guidelines as needed 11. Review exposure to history of communicable disease and recent travel history on admission 12. Encourage annual influenza vaccine 13. Encourage pneumonia vaccine Outcome: Progressing Note: Evaluation of progress towards goal: pt continues to have intermittent fevers at this time. Problem: Knowledge Deficit Goal: Patient/patient investment representative demonstrates understanding of disease process, treatment [...] Collaborate with ancillary departments 14. Include patient/patient investment representative in decisions related to anxiety Outcome: [...] care 6. Collaborate with pastoral/spiritual care, social director, mental health counselor as needed. 7. Instruct patient on diversional activities such as physical activity, distraction, and deep breathing exercises to assist with coping 8. Involve patient's investment representative in care Outcome: Progressing Note: Evaluation [...] hydration as ordered 5. Instruct patient/ legal investment representative on nutrition/diet; fluid/hydration restrictions as appropriate Outcome: Progressing Note: Evaluation of progress towards goal: electrolytes replaced per scale at this time. * Plan of Care - Skye Mary RN - 12/05/2023 2:02 AM EDT Problem: Low Risk Fall Score Description: [place] Fall Score of 0 - 24 or indicated by [facility] Assessment Goal: Patient should be free from fall Description: Interventions: 1. [place] to environment 2. Hourly rounds addressing the [...] non-skid footwear 11. Teach patient and patient investment representative to maintain environment for safety and engage in all aspects of fall prevention program Outcome: Progressing Note: Evaluation of progress towards goal: pt remains free from falls. Pt independent in room. Problem: Pain Goal: Patient goal is pain score less than 4, able to rest, and participant in treatment plan as appropriate Description: INTERVENTIONS: 1. Encourage patient or legal investment representative to report early pain and ask [...] per policy 9. Teach patient or legal investment representative interventions for comforting Outcome: Progressing Note: [...] at the bedside 7. Instruct patient/ patient investment representative about use of safety devices 8. Include patient/ patient investment representative in decisions related to safety Outcome: [...] hygiene technique 7. Identify and instruct patient/patient investment representative in use of appropriate isolation precautionsfor identified infection/symptoms 8. Provide and discuss with patient/patient investment representative on educational MDRO sheet 9. Encourage and monitor nutritional status daily and consult product strategy director if indicated 10. Implement neutropenic guidelines as needed 11. Review exposure to history of communicable disease and recent travel history on admission 12. Encourage annual influenza vaccine 13. Encourage pneumonia vaccine Outcome: Progressing Note: Evaluation of progress towards goal: monitoring pt for s/s of infection. Hand hygiene performed. Problem: Knowledge Deficit Goal: Patient/patient investment representative demonstrates understanding of disease process, treatment [...] Collaborate with ancillary departments 14. Include patient/patient investment representative in decisions related to anxiety Outcome: [...] care 6. Collaborate with pastoral/spiritual care, social director, mental health counselor as needed. 7. Instruct patient on diversional activities such as physical activity, distraction, and deep breathing exercises to assist with coping 8. Involve patient's investment representative in care Outcome: Progressing Note: Evaluation [...] hydration as ordered 5. Instruct patient/ legal investment representative on nutrition/diet; fluid/hydration restrictions as appropriate Outcome: Progressing Note: Evaluation of progress towards goal: monitoring pt's labs and electrolytes. Replacing when needed. * Plan of Care - Claudia Masterson, CERTIFIED ORTHOTIST - 12/04/2023 3:30 PM EDT Problem: Low Risk Fall Score Description: [place] Fall Score of 0 - 24 or indicated by [facility] Assessment Goal: Patient should be free from fall Description: Interventions: 1. [place] to environment 2. Hourly rounds addressing the [...] non-skid footwear 11. Teach patient and patient investment representative to maintain environment for safety and engage in all aspects of fall prevention program Outcome: Progressing Note: Evaluation of progress towards goal: fall precautions in place no falls at this time. Problem: Pain Goal: Patient goal is pain score less than 4, able to rest, and participant in treatment plan as appropriate Description: INTERVENTIONS: 1. Encourage patient or legal investment representative to report early pain and ask [...] per policy 9. Teach patient or legal investment representative interventions for comforting Outcome: Progressing Note: [...] at the bedside 7. Instruct patient/ patient investment representative about use of safety devices 8. Include patient/ patient investment representative in decisions related to safety Outcome: [...] hygiene technique 7. Identify and instruct patient/patient investment representative in use of appropriate isolation precautionsfor identified infection/symptoms 8. Provide and discuss with patient/patient investment representative on educational MDRO sheet 9. Encourage and monitor nutritional status daily and consult product strategy director if indicated 10. Implement neutropenic guidelines as needed 11. Review exposure to history of communicable disease and recent travel history on admission 12. Encourage annual influenza vaccine 13. Encourage pneumonia vaccine Outcome: Progressing Note: Evaluation of progress towards goal: pt remains afebrile at this time. Problem: Knowledge Deficit Goal: Patient/patient investment representative demonstrates understanding of disease process, treatment [...] Collaborate with ancillary departments 14. Include patient/patient investment representative in decisions related to anxiety Outcome: [...] care 6. Collaborate with pastoral/spiritual care, social director, mental health counselor as needed. 7. Instruct patient on diversional activities such as physical activity, distraction, and deep breathing exercises to assist with coping 8. Involve patient's investment representative in care Outcome: Progressing Note: Evaluation [...] hydration as ordered 5. Instruct patient/ legal investment representative on nutrition/diet; fluid/hydration restrictions as appropriate [...] be free from fall Description: Interventions: 1. [place] to environment 2. Hourly rounds addressing the [...] non-skid footwear 11. Teach patient and patient investment representative to maintain environment for safety and engage in all aspects of fall prevention program Outcome: Progressing Note: Evaluation of progress towards goal: pt remains free from falls. Pt independent in room. Problem: Pain Goal: Patient goal is pain score less than 4, able to rest, and participant in treatment plan as appropriate Description: INTERVENTIONS: 1. Encourage patient or legal investment representative to report early pain and ask [...] per policy 9. Teach patient or legal investment representative interventions for comforting Outcome: Progressing Note: [...] at the bedside 7. Instruct patient/ patient investment representative about use of safety devices 8. Include patient/ patient investment representative in decisions related to safety Outcome: [...] hygiene technique 7. Identify and instruct patient/patient investment representative in use of appropriate isolation precautionsfor identified infection/symptoms 8. Provide and discuss with patient/patient investment representative on educational MDRO sheet 9. Encourage and monitor nutritional status daily and consult product strategy director if indicated 10. Implement neutropenic guidelines as needed 11. Review exposure to history of communicable disease and recent travel history on admission 12. Encourage annual influenza vaccine 13. Encourage pneumonia vaccine Outcome: Progressing Note: Evaluation of progress towards goal: pt remains afebrile. Hand hygiene performed. Problem: Knowledge Deficit Goal: Patient/patient investment representative demonstrates understanding of disease process, treatment [...] hydration as ordered 5. Instruct patient/ legal investment representative on nutrition/diet; fluid/hydration restrictions as appropriate Outcome: Progressing Note: Evaluation of progress towards goal: monitoring pt's labs and electrolytes. Replacing when needed. * Plan of Care - Claudia MontañoSHARAD vail - 12/03/2023 5:13 PM EDT Problem: Low Risk Fall Score Description: [place] Fall Score of 0 - 24 or indicated by [facility] Assessment Goal: Patient should be free from fall Description: Interventions: 1. [place] to environment 2. Hourly rounds addressing the [...] non-skid footwear 11. Teach patient and patient investment representative to maintain environment for safety and engage in all aspects of fall prevention program Outcome: Progressing Note: Evaluation of progress towards goal: fall precautions in place, pt remains free from falls atthis time. Problem: Pain Goal: Patient goal is pain score less than 4, able to rest, and participant in treatment plan as appropriate Description: INTERVENTIONS: 1. Encourage patient or legal investment representative to report early pain and ask [...] per policy 9. Teach patient or legal investment representative interventions for comforting Outcome: Progressing Note: [...] at the bedside 7. Instruct patient/ patient investment representative about use of safety devices 8. Include patient/ patient investment representative in decisions related to safety Outcome: [...] hygiene technique 7. Identify and instruct patient/patient investment representative in use of appropriate isolation precautionsfor identified infection/symptoms 8. Provide and discuss with patient/patient investment representative on educational MDRO sheet 9. Encourage and monitor nutritional status daily and consult product strategy director if indicated 10. Implement neutropenic guidelines as needed 11. Review exposure to history of communicable disease and recent travel history on admission 12. Encourage annual influenza vaccine 13. Encourage pneumonia vaccine Outcome: Progressing Note: Evaluation of progress towards goal: pt remains afebrile at this time. Problem: Knowledge Deficit Goal: Patient/patient investment representative demonstrates understanding of disease process, treatment [...] Collaborate with ancillary departments 14. Include patient/patient investment representative in decisions related to anxiety Outcome: [...] care 6. Collaborate with pastoral/spiritual care, social director, mental health counselor as needed. 7. Instruct patient on diversional activities such as physical activity, distraction, and deep breathing exercises to assist with coping 8. Involve patient's investment representative in care Outcome: Progressing Note: Evaluation [...] hydration as ordered 5. Instruct patient/ legal investment representative on nutrition/diet; fluid/hydration restrictions as appropriate Outcome: Progressing Note: Evaluation of progress towards goal: electrolytes continue to need replacement at this time. * Discharge Planning Note - Heike Anderson - 12/03/2023 9:59 AM EDT DISCHARGE PLANNING NOTE Referral to [facility], [facility] [employer] [facility] Contract[facility]- [place], [place] [facility] - (P# ; F# ) * Discharge Planning Note - Mariah Starr RN - 12/03/2023 9:16 AM EDT DISCHARGE PLANNING NOTE [employer] met with patient and at bedside, introduced [...] IV antibiotics - Vanco/Ertapenum at home [facility] [place] [facility] drawing labs three days a week and weekly port dressing changes. Patient denies need for transportation/ food/ prescription medication assistance resources. 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 CN offered to assist with follow up appointment arrangements, patient declined need. Current discharge plan is: home with IV antibiotics Task sent to [facility] to send referral to [facility]. Will continue to follow as plan of care develops. CN discussed benefits and importance of medication compliance and follow ups. - MARIAH STARR RN 12/03/23 9:16 AM * Plan of Care - Shanice Hogan RN - 12/03/2023 1:08 AM EDT Problem: Low Risk Fall Score Description: Pickens Fall Score of 0 - 24 or indicated by [facility] Assessment Goal: Patient should be free from fall Description: Interventions: 1. [place] to environment 2. Hourly rounds addressing the [...] non-skid footwear 11. Teach patient and patient investment representative to maintain environment for safety and [...] Description: INTERVENTIONS: 1. Encourage patient or legal investment representative to report early pain and ask [...] per policy 9. Teach patient or legal investment representative interventions for comforting Outcome: Progressing Note: [...] at the bedside 7. Instruct patient/ patient investment representative about use of safety devices 8. Include patient/ patient investment representative in decisions related to safety Outcome: [...] hygiene technique 7. Identify and instruct patient/patient investment representative in use of appropriate isolation precautionsfor identified infection/symptoms 8. Provide and discuss with patient/patient investment representative on educational MDRO sheet 9. Encourage and monitor nutritional status daily and consult product strategy director if indicated 10. Implement neutropenic guidelines as needed 11. Review exposure to history of communicable disease and recent travel history on admission 12. Encourage annual influenza vaccine 13. Encourage pneumonia vaccine Outcome: Progressing Note: Evaluation of progress towards goal: Afebrile, labs and VS monitored Problem: Knowledge Deficit Goal: Patient/patient investment representative demonstrates understanding of disease process, treatment [...] Collaborate with ancillary departments 14. Include patient/patient investment representative in decisions related to anxiety Outcome: [...] care 6. Collaborate with pastoral/spiritual care, social director, mental health counselor as needed. 7. Instruct patient on diversional activities such as physical activity, distraction, and deep breathing exercises to assist with coping 8. Involve patient's investment representative in care Outcome: Progressing Note: Evaluation [...] hydration as ordered 5. Instruct patient/ legal investment representative on nutrition/diet; fluid/hydration restrictions as appropriate Outcome: Progressing Note: Evaluation of progress towards goal: Display of normal lab values. Electrolytes are replaced as needed. [facility] in [facility]Tr[facility] Hospital course Narrative* Amy Jack MD - 12/09/2023 2:48 PM EDT Images from the original note were not included. [facility] - ONCOLOGY/STROKE [address] [facility] [id number] Hospital Medicine Discharge Summary Patient: Ike Flannery Date of : 1970 Room: [facility] Encounter date: 12/09/23 DATE OF ADMISSION: 12/02/2023 DATE OF DISCHARGE:12/09/2023 DISCHARGE DIAGNOSES # Acute kidney injury, ATN, multifactorial in the setting of decreased p.o. 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 Lui for longterm management -has appointment January 13 Check labs WBC, platelets, creatinine, LFTs weekly while on antibiotics. follow up with primary structural technician Dr. Clint Bazan. follow-up with nephrology in [...] 14 tentatively. She will follow up with [facility] Dr. Lui on 01/13/ Patient's [...] Medications These medications were sent to Medicine [address] [address] ciprofloxacin HCl 500 mg tablet clarithromycin 500 mg tablet cyanocobalamin 1000 MCG tablet linezolid 600 mg tablet You can get these medications from any pharmacy Bring a paper prescription for each of these medications imipenem-cilastatin 500 mg in sodium chloride 0.9 % 100 mL IVPB MINI-BAG Plus >30 minutes were spent on discharging this patient. Amy Jack MD 12/09/2023 2:48 PM [facility] Internal Medicine 7AM-7PM (all facilities): EpicChat or page through Feedbooks. 7PM-7AM ([facility], [facility] and [facility] Rehab): EpicChat or page, [phone]. 7PM-7AM ([place], [place], [place], [place] and [facility] Rehab): EpicChat or page through Feedbooks. documented in this encounterTrumbull [facility] Center10-09-2024 Hospital Discharge instructions* Discharge Instructions* Amy Jack MD - 12/09/2023 2:42 PM EDT take ciprofloxacin for 2 week course of treatment until December 15 and then Zyvox from December 16 to December 29, clarithromycin until January 14 tentatively, and imipenem until January 14tentatively Ambulatory referral placed for [facility] Dr. Lui for buttermaker management -has appointment January 13 Check labs WBC, platelets, creatinine, LFTs weekly while on antibiotics. follow up with primary structural technician Dr. Clint Bazan. follow-up with nephrology in [...] to reschedule. Thank you! HERMAN LUI DO [phone] [facility] [address] [facility] [address] [facility] Infectious Disease [facility] [phone] Go on 01/14/2024 at 2 PM Pt. [...] For NEW patients, MD will not prescribe buttermaker pain medication. * Attachments The following attachments cannot be sent through Care Everywhere. * Acute kidney injury (Peruvian) * How to Prevent Surgical Site Infections (Peruvian) documented in this encounterTrumbull [facility] Center10-09-2024 Plan of care note * Plan of Care - Aliza Benito RN - 12/09/2023 4:18 AM EDT Problem: Low Risk Fall Score Description: Pickens Fall Score of 0 - 24 or indicated by [facility] Assessment Goal: Patient should be free from fall Description: Interventions: 1. [place] to environment 2. Hourly rounds addressing the [...] non-skid footwear 11. Teach patient and patient investment representative to maintain environment for safety and engage in all aspects of fall prevention program Outcome: Progressing Note: Evaluation of progress towards goal: Pt remains free from falls. Will continue to provide a safe environment. Problem: Pain Goal: Patient goal is pain score less than 4, able to rest, and participant in treatment plan as appropriate Description: INTERVENTIONS: 1. Encourage patient or legal investment representative to report early pain and ask [...] per policy 9. Teach patient or legal investment representative interventions for comforting Outcome: Progressing Note: [...] at the bedside 7. Instruct patient/ patient investment representative about use of safety devices 8. Include patient/ patient investment representative in decisions related to safety Outcome: [...] hygiene technique 7. Identify and instruct patient/patient investment representative in use of appropriate isolation precautionsfor identified infection/symptoms 8. Provide and discuss with patient/patient investment representative on educational MDRO sheet 9. Encourage and monitor nutritional status daily and consult product strategy director if indicated 10. Implement neutropenic guidelines as needed 11. Review exposure to history of communicable disease and recent travel history on admission 12. Encourage annual influenza vaccine 13. Encourage pneumonia vaccine Outcome: Progressing Note: Evaluation of progress towards goal: pt remains afebrile, currently on antibiotics Problem: Knowledge Deficit Goal: Patient/patient investment representative demonstrates understanding of disease process, treatment [...] Collaborate with ancillary departments 14. Include patient/patient investment representative in decisions related to anxiety Outcome: [...] care 6. Collaborate with pastoral/spiritual care, social director, mental health counselor as needed. 7. Instruct patient on diversional activities such as physical activity, distraction, and deep breathing exercises to assist with coping 8. Involve patient's investment representative in care Outcome: Progressing Note: Evaluation [...] hydration as ordered 5. Instruct patient/ legal investment representative on nutrition/diet; fluid/hydration restrictions as appropriate Outcome: Progressing Note: Evaluation of progress towards goal: electrolytes are continuing to be monitored and replacedper protocol [employer] [id number] Plan of care note* Plan of Care - Claudia Masterson LPN - 12/08/2023 3:27 PM EDT Problem: Low Risk Fall Score Description: Pickens Fall Score of 0 - 24 or indicated by [facility] Assessment Goal: Patient should be free from fall Description: Interventions: 1. [place] to environment 2. Hourly rounds addressing the [...] non-skid footwear 11. Teach patient and patient investment representative to maintain environment for safety and engage in all aspects of fall prevention program Outcome: Progressing Note: Evaluation of progress towards goal: pt remains free from falls at this time. Problem: Pain Goal: Patient goal is pain score less than 4, able to rest, and participant in treatment plan as appropriate Description: INTERVENTIONS: 1. Encourage patient or legal investment representative to report early pain and ask [...] per policy 9. Teach patient or legal investment representative interventions for comforting Outcome: Progressing Note: [...] at the bedside 7. Instruct patient/ patient investment representative about use of safety devices 8. Include patient/ patient investment representative in decisions related to safety Outcome: [...] hygiene technique 7. Identify and instruct patient/patient investment representative in use of appropriate isolation precautionsfor identified infection/symptoms 8. Provide and discuss with patient/patient investment representative on educational MDRO sheet 9. Encourage and monitor nutritional status daily and consult product strategy director if indicated 10. Implement neutropenic guidelines as needed 11. Review exposure to history of communicable disease and recent travel history on admission 12. Encourage annual influenza vaccine 13. Encourage pneumonia vaccine Outcome: Progressing Note: Evaluation of progress towards goal: pt remains afebrile at this time. Problem: Knowledge Deficit Goal: Patient/patient investment representative demonstrates understanding of disease process, treatment [...] Collaborate with ancillary departments 14. Include patient/patient investment representative in decisions related to anxiety Outcome: [...] care 6. Collaborate with pastoral/spiritual care, social director, mental health counselor as needed. 7. Instruct patient on diversional activities such as physical activity, distraction, and deep breathing exercises to assist with coping 8. Involve patient's investment representative in care Outcome: Progressing Note: Evaluation [...] hydration as ordered 5. Instruct patient/ legal investment representative on nutrition/diet; fluid/hydration restrictions as appropriate Outcome: Progressing Note: Evaluation of progress towards goal: electrolytes replaced within normal limits at this time. [facility]10-08-2024 Progress note* Discharge Planning Note - Mariah Starr RN - 12/08/2023 3:23 PM EDT DISCHARGE PLANNING NOTE Patient discussed in DTRs. Barrier to discharge is ID plan. 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 Task sent to [facility] to get appointment set up. Plan is for patient to be discharged on Primaxin IV - sent msg tocheck cost. - MARIAH STARR RN 12/08/23 3:26 PM Primaxin IV is 100% covered. Script and prior auth sent to [employer]. Medication will be delivered to the patient's home between 5-9pm. Spoke with Skye at [facility] and they have the standing order for weekly labs and weekly dressing change. Patient updated and agreeable with plan to discharge home this afternoon. Patient has appointment set for 01/14/[address] Herman Lui. - MARIAH STARR RN 12/09/23 2:19 PM CRF sent to [employer]. - MARIAH STARR RN 12/09/23 3:04 PM [facility] [id number] History of Present illness Narrative* AMEENA Vallejo - 12/08/2023 10:38 AM EDT Ambulatory referral to Dr. Lui [facility] for mycobacterium abscessus infection AMEENA Vallejo 12/08/23 1041 documented in this encounterG[facility] Center[facility]-08-[facility] Plan of care note * Plan of Care - Aliza Benito RN - 12/08/2023 3:32 AM EDT Problem: Low Risk Fall Score Description: Pickens Fall Score of 0 - 24 or indicated by [facility] Assessment Goal: Patient should be free from fall Description: Interventions: 1. [place] to environment 2. Hourly rounds addressing the [...] non-skid footwear 11. Teach patient and patient investment representative to maintain environment for safety and engage in all aspects of fall prevention program Outcome: Progressing Note: Evaluation of progress towards goal: Pt remains free from falls. Will continue to provide a safe environment. Problem: Pain Goal: Patient goal is pain score less than 4, able to rest, and participant in treatment plan as appropriate Description: INTERVENTIONS: 1. Encourage patient or legal investment representative to report early pain and ask [...] per policy 9. Teach patient or legal investment representative interventions for comforting Outcome: Progressing Note: [...] at the bedside 7. Instruct patient/ patient investment representative about use of safety devices 8. Include patient/ patient investment representative in decisions related to safety Outcome: [...] hygiene technique 7. Identify and instruct patient/patient investment representative in use of appropriate isolation precautionsfor identified infection/symptoms 8. Provide and discuss with patient/patient investment representative on educational MDRO sheet 9. Encourage and monitor nutritional status daily and consult product strategy director if indicated 10. Implement neutropenic guidelines as needed 11. Review exposure to history of communicable disease and recent travel history on admission 12. Encourage annual influenza vaccine 13. Encourage pneumonia vaccine Outcome: Progressing Note: Evaluation of progress towards goal: pt remains afebrile at this time, antibiotics are administered as ordered Problem: Knowledge Deficit Goal: Patient/patient investment representative demonstrates understanding of disease process, treatment [...] Collaborate with ancillary departments 14. Include patient/patient investment representative in decisions related to anxiety Outcome: [...] care 6. Collaborate with pastoral/spiritual care, social director, mental health counselor as needed. 7. Instruct patient on diversional activities such as physical activity, distraction, and deep breathing exercises to assist with coping 8. Involve patient's investment representative in care Outcome: Progressing Note: Evaluation [...] hydration as ordered 5. Instruct patient/ legal investment representative on nutrition/diet; fluid/hydration restrictions as appropriate Outcome: Progressing Note: Evaluation of progress towards goal: electrolytes are monitored and replaced per orders [facility] HospitalEnliken [id number] Progress note* Discharge Planning Note - Mariah [...] - MARIAH STARR RN 12/07/23 12:06 PM [employer] [id number] Plan of care note* Plan of Care - Alisha Richardson RN - 12/07/2023 10:30 AM EDT Problem: Pain Goal: Patient goal is pain score less than 4, able to rest, and participant in treatment plan as appropriate Description: INTERVENTIONS: 1. Encourage patient or legal investment representative to report early pain and ask [...] per policy 9. Teach patient or legal investment representative interventions for comforting Outcome: Progressing Note: [...] at the bedside 7. Instruct patient/ patient investment representative about use of safety devices 8. Include patient/ patient investment representative in decisions related to safety Outcome: [...] hygiene technique 7. Identify and instruct patient/patient investment representative in use of appropriate isolation precautionsfor identified infection/symptoms 8. Provide and discuss with patient/patient investment representative on educational MDRO sheet 9. Encourage and monitor nutritional status daily and consult product strategy director if indicated 10. Implement neutropenic guidelines as needed 11. Review exposure to history of communicable disease and recent travel history on admission 12. Encourage annual influenza vaccine 13. Encourage pneumonia vaccine Outcome: Progressing Note: Evaluation of progress towards goal: pt afebrile. WBC 2.7 Problem: Knowledge Deficit Goal: Patient/patient investment representative demonstrates understanding of disease process, treatment [...] of progress towards goal: d/c plans pending [facility]10-07-2024 Plan of care note* Plan of Care - Aliza Benito RN - 12/07/2023 5:19 AM EDT Problem: Low Risk Fall Score Description: Pickens Fall Score of 0 - 24 or indicated by [facility] Assessment Goal: Patient should be free from fall Description: Interventions: 1. [place] to environment 2. Hourly rounds addressing the [...] non-skid footwear 11. Teach patient and patient investment representative to maintain environment for safety and engage in all aspects of fall prevention program Outcome: Progressing Note: Evaluation of progress towards goal: Pt remains free from falls. Will continue to provide a safe environment. Problem: Pain Goal: Patient goal is pain score less than 4, able to rest, and participant in treatment plan as appropriate Description: INTERVENTIONS: 1. Encourage patient or legal investment representative to report early pain and ask [...] per policy 9. Teach patient or legal investment representative interventions for comforting Outcome: Progressing Note: [...] at the bedside 7. Instruct patient/ patient investment representative about use of safety devices 8. Include patient/ patient investment representative in decisions related to safety Outcome: [...] hygiene technique 7. Identify and instruct patient/patient investment representative in use of appropriate isolation precautionsfor identified infection/symptoms 8. Provide and discuss with patient/patient investment representative on educational MDRO sheet 9. Encourage and monitor nutritional status daily and consult product strategy director if indicated 10. Implement neutropenic guidelines as needed 11. Review exposure to history of communicable disease and recent travel history on admission 12. Encourage annual influenza vaccine 13. Encourage pneumonia vaccine Outcome: Progressing Note: Evaluation of progress towards goal: patient remains on antibiotics at this time, monitoring for s/s of infection Problem: Knowledge Deficit Goal: Patient/patient investment representative demonstrates understanding of disease process, treatment [...] Collaborate with ancillary departments 14. Include patient/patient investment representative in decisions related to anxiety Outcome: [...] care 6. Collaborate with pastoral/spiritual care, social director, mental health counselor as needed. 7. Instruct patient on diversional activities such as physical activity, distraction, and deep breathing exercises to assist with coping 8. Involve patient's investment representative in care Outcome: Progressing Note: Evaluation [...] hydration as ordered 5. Instruct patient/ legal investment representative on nutrition/diet; fluid/hydration restrictions as appropriate Outcome: Progressing Note: Evaluation of progress towards goal: electrolytes are within range at this time [facility]10[facility] Plan of care note* Plan of Care - Alisha Richardson RN - 12/06/2023 9:51 AM EDT Problem: Pain Goal: Patient goal is pain score less than 4, able to rest, and participant in treatment plan as appropriate Description: INTERVENTIONS: 1. Encourage patient or legal investment representative to report early pain and ask [...] per policy 9. Teach patient or legal investment representative interventions for comforting Outcome: Progressing Note: [...] at the bedside 7. Instruct patient/ patient investment representative about use of safety devices 8. Include patient/ patient investment representative in decisions related to safety Outcome: [...] hygiene technique 7. Identify and instruct patient/patient investment representative in use of appropriate isolation precautionsfor identified infection/symptoms 8. Provide and discuss with patient/patient investment representative on educational MDRO sheet 9. Encourage and monitor nutritional status daily and consult product strategy director if indicated 10. Implement neutropenic guidelines as needed 11. Review exposure to history of communicable disease and recent travel history on admission 12. Encourage annual influenza vaccine 13. Encourage pneumonia vaccine Outcome: Progressing Note: Evaluation of progress towards goal: pt afebrile this AM. WBC 3.0 Positive Wound culture [facility] Problem: Knowledge Deficit Goal: Patient/patient investment representative demonstrates understanding of disease process, treatment [...] progress towards goal: awaiting [facility] for [facility] Plan of care note* Plan of Care - Skye Mary RN - 12/06/2023 1:56 AM EDT Problem: Low Risk Fall Score Description: Pickens Fall Score of 0 - 24 or indicated by [facility] Assessment Goal: Patient should be free from fall Description: Interventions: 1. [place] to environment 2. Hourly rounds addressing the [...] non-skid footwear 11. Teach patient and patient investment representative to maintain environment for safety and engage in all aspects of fall prevention program Outcome: Progressing Note: Evaluation of progress towards goal: pt remains free from falls. Pt independent in room. Problem: Pain Goal: Patient goal is pain score less than 4, able to rest, and participant in treatment plan as appropriate Description: INTERVENTIONS: 1. Encourage patient or legal investment representative to report early pain and ask [...] per policy 9. Teach patient or legal investment representative interventions for comforting Outcome: Progressing Note: [...] at the bedside 7. Instruct patient/ patient investment representative about use of safety devices 8. Include patient/ patient investment representative in decisions related to safety Outcome: [...] hygiene technique 7. Identify and instruct patient/patient investment representative in use of appropriate isolation precautionsfor identified infection/symptoms 8. Provide and discuss with patient/patient investment representative on educational MDRO sheet 9. Encourage and monitor nutritional status daily and consult product strategy director if indicated 10. Implement neutropenic guidelines as needed 11. Review exposure to history of communicable disease and recent travel history on admission 12. Encourage annual influenza vaccine 13. Encourage pneumonia vaccine Outcome: Progressing Note: Evaluation of progress towards goal: pt continues with intermittent fevers. Prn meds available. Problem: Knowledge Deficit Goal: Patient/patient investment representative demonstrates understanding of disease process, treatment [...] hydration as ordered 5. Instruct patient/ legal investment representative on nutrition/diet; fluid/hydration restrictions as appropriate Outcome: Progressing Note: Evaluation of progress towards goal: monitoring pt's labs and electrolytes. Replacing when needed. [facility] [facility] Plan of care note* Plan of Care - Claudia Masterson LPN - 12/05/2023 1:17 PM EDT Problem: Low Risk Fall Score Description: Pickens Fall Score of 0 - 24 or indicated by [facility] Assessment Goal: Patient should be free from fall Description: Interventions: 1. [place] to environment 2. Hourly rounds addressing the [...] non-skid footwear 11. Teach patient and patient investment representative to maintain environment for safety and engage in all aspects of fall prevention program Outcome: Progressing Note: Evaluation of progress towards goal: pt free from falls at this time. Problem: Pain Goal: Patient goal is pain score less than 4, able to rest, and participant in treatment plan as appropriate Description: INTERVENTIONS: 1. Encourage patient or legal investment representative to report early pain and ask [...] per policy 9. Teach patient or legal investment representative interventions for comforting Outcome: Progressing Note: [...] at the bedside 7. Instruct patient/ patient investment representative about use of safety devices 8. Include patient/ patient investment representative in decisions related to safety Outcome: [...] hygiene technique 7. Identify and instruct patient/patient investment representative in use of appropriate isolation precautionsfor identified infection/symptoms 8. Provide and discuss with patient/patient investment representative on educational MDRO sheet 9. Encourage and monitor nutritional status daily and consult product strategy director if indicated 10. Implement neutropenic guidelines as needed 11. Review exposure to history of communicable disease and recent travel history on admission 12. Encourage annual influenza vaccine 13. Encourage pneumonia vaccine Outcome: Progressing Note: Evaluation of progress towards goal: pt continues to have intermittent fevers at this time. Problem: Knowledge Deficit Goal: Patient/patient investment representative demonstrates understanding of disease process, treatment [...] Collaborate with ancillary departments 14. Include patient/patient investment representative in decisions related to anxiety Outcome: [...] care 6. Collaborate with pastoral/spiritual care, social director, mental health counselor as needed. 7. Instruct patient on diversional activities such as physical activity, distraction, and deep breathing exercises to assist with coping 8. Involve patient's investment representative in care Outcome: Progressing Note: Evaluation [...] hydration as ordered 5. Instruct patient/ legal investment representative on nutrition/diet; fluid/hydration restrictions as appropriate Outcome: Progressing Note: Evaluation of progress towards goal: electrolytes replaced per scale at this time. [employer] [id number] Plan of care note* Plan of Care - Skye Mary RN - 12/05/2023 2:02 AM EDT Problem: Low Risk Fall Score Description: Pickens Fall Score of 0 - 24 or indicated by [facility] Assessment Goal: Patient should be free from fall Description: Interventions: 1. [place] to environment 2. Hourly rounds addressing the [...] non-skid footwear 11. Teach patient and patient investment representative to maintain environment for safety and engage in all aspects of fall prevention program Outcome: Progressing Note: Evaluation of progress towards goal: pt remains free from falls. Pt independent in room. Problem: Pain Goal: Patient goal is pain score less than 4, able to rest, and participant in treatment plan as appropriate Description: INTERVENTIONS: 1. Encourage patient or legal investment representative to report early pain and ask [...] per policy 9. Teach patient or legal investment representative interventions for comforting Outcome: Progressing Note: [...] at the bedside 7. Instruct patient/ patient investment representative about use of safety devices 8. Include patient/ patient investment representative in decisions related to safety Outcome: [...] hygiene technique 7. Identify and instruct patient/patient investment representative in use of appropriate isolation precautionsfor identified infection/symptoms 8. Provide and discuss with patient/patient investment representative on educational MDRO sheet 9. Encourage and monitor nutritional status daily and consult product strategy director if indicated 10. Implement neutropenic guidelines as needed 11. Review exposure to history of communicable disease and recent travel history on admission 12. Encourage annual influenza vaccine 13. Encourage pneumonia vaccine Outcome: Progressing Note: Evaluation of progress towards goal: monitoring pt for s/s of infection. Hand hygiene performed. Problem: Knowledge Deficit Goal: Patient/patient investment representative demonstrates understanding of disease process, treatment [...] Collaborate with ancillary departments 14. Include patient/patient investment representative in decisions related to anxiety Outcome: [...] care 6. Collaborate with pastoral/spiritual care, social director, mental health counselor as needed. 7. Instruct patient on diversional activities such as physical activity, distraction, and deep breathing exercises to assist with coping 8. Involve patient's investment representative in care Outcome: Progressing Note: Evaluation [...] hydration as ordered 5. Instruct patient/ legal investment representative on nutrition/diet; fluid/hydration restrictions as appropriate Outcome: Progressing Note: Evaluation of progress towards goal: monitoring pt's labs and electrolytes. Replacing when needed. [employer] [id number] Plan of care note* Plan of Care - Claudia Masterson LPN - 12/04/2023 3:30 PM EDT Problem: Low Risk Fall Score Description: Pickens Fall Score of 0 - 24 or indicated by [facility] Assessment Goal: Patient should be free from fall Description: Interventions: 1. [place] to environment 2. Hourly rounds addressing the [...] non-skid footwear 11. Teach patient and patient investment representative to maintain environment for safety and engage in all aspects of fall prevention program Outcome: Progressing Note: Evaluation of progress towards goal: fall precautions in place no falls at this time. Problem: Pain Goal: Patient goal is pain score less than 4, able to rest, and participant in treatment plan as appropriate Description: INTERVENTIONS: 1. Encourage patient or legal investment representative to report early pain and ask [...] per policy 9. Teach patient or legal investment representative interventions for comforting Outcome: Progressing Note: [...] at the bedside 7. Instruct patient/ patient investment representative about use of safety devices 8. Include patient/ patient investment representative in decisions related to safety Outcome: [...] hygiene technique 7. Identify and instruct patient/patient investment representative in use of appropriate isolation precautionsfor identified infection/symptoms 8. Provide and discuss with patient/patient investment representative on educational MDRO sheet 9. Encourage and monitor nutritional status daily and consult product strategy director if indicated 10. Implement neutropenic guidelines as needed 11. Review exposure to history of communicable disease and recent travel history on admission 12. Encourage annual influenza vaccine 13. Encourage pneumonia vaccine Outcome: Progressing Note: Evaluation of progress towards goal: pt remains afebrile at this time. Problem: Knowledge Deficit Goal: Patient/patient investment representative demonstrates understanding of disease process, treatment [...] Collaborate with ancillary departments 14. Include patient/patient investment representative in decisions related to anxiety Outcome: [...] care 6. Collaborate with pastoral/spiritual care, social director, mental health counselor as needed. 7. Instruct patient on diversional activities such as physical activity, distraction, and deep breathing exercises to assist with coping 8. Involve patient's investment representative in care Outcome: Progressing Note: Evaluation [...] hydration as ordered 5. Instruct patient/ legal investment representative on nutrition/diet; fluid/hydration restrictions as appropriate Outcome: Progressing Note: Evaluation of progress towards goal: electrolytes within normal limits at this time. [facility] [id number] Progress note* Discharge Planning Note - Mariah [...] - MARIAH STARR RN 12/04/23 1:08 PM [facility] [id number] Plan of care note* Plan of Care - Skye Mary RN - 12/04/2023 12:43 AM EDT Problem: Low Risk Fall Score Description: Pick[place] Fall Score of 0 - 24 or indicated by [facility] Assessment Goal: Patient should be free from fall Description: Interventions: 1. [place] to environment 2. Hourly rounds addressing the [...] non-skid footwear 11. Teach patient and patient investment representative to maintain environment for safety and engage in all aspects of fall prevention program Outcome: Progressing Note: Evaluation of progress towards goal: pt remains free from falls. Pt independent in room. Problem: Pain Goal: Patient goal is pain score less than 4, able to rest, and participant in treatment plan as appropriate Description: INTERVENTIONS: 1. Encourage patient or legal investment representative to report early pain and ask [...] per policy 9. Teach patient or legal investment representative interventions for comforting Outcome: Progressing Note: [...] at the bedside 7. Instruct patient/ patient investment representative about use of safety devices 8. Include patient/ patient investment representative in decisions related to safety Outcome: [...] hygiene technique 7. Identify and instruct patient/patient investment representative in use of appropriate isolation precautionsfor identified infection/symptoms 8. Provide and discuss with patient/patient investment representative on educational MDRO sheet 9. Encourage and monitor nutritional status daily and consult product strategy director if indicated 10. Implement neutropenic guidelines as needed 11. Review exposure to history of communicable disease and recent travel history on admission 12. Encourage annual influenza vaccine 13. Encourage pneumonia vaccine Outcome: Progressing Note: Evaluation of progress towards goal: pt remains afebrile. Hand hygiene performed. Problem: Knowledge Deficit Goal: Patient/patient investment representative demonstrates understanding of disease process, treatment [...] hydration as ordered 5. Instruct patient/ legal investment representative on nutrition/diet; fluid/hydration restrictions as appropriate Outcome: Progressing Note: Evaluation of progress towards goal: monitoring pt's labs and electrolytes. Replacing when needed. [facility]10-03-2024 Plan of care note* Plan of Care - Claudia Masterson LPN - 12/03/2023 5:13 PM EDT Problem: Low Risk Fall Score Description: Pick[place] Fall Score of 0 - 24 or indicated by [facility] Assessment Goal: Patient should be free from fall Description: Interventions: 1. [place] to environment 2. Hourly rounds addressing the [...] non-skid footwear 11. Teach patient and patient investment representative to maintain environment for safety and engage in all aspects of fall prevention program Outcome: Progressing Note: Evaluation of progress towards goal: fall precautions in place, pt remains free from falls atthis time. Problem: Pain Goal: Patient goal is pain score less than 4, able to rest, and participant in treatment plan as appropriate Description: INTERVENTIONS: 1. Encourage patient or legal investment representative to report early pain and ask [...] per policy 9. Teach patient or legal investment representative interventions for comforting Outcome: Progressing Note: [...] at the bedside 7. Instruct patient/ patient investment representative about use of safety devices 8. Include patient/ patient investment representative in decisions related to safety Outcome: [...] hygiene technique 7. Identify and instruct patient/patient investment representative in use of appropriate isolation precautionsfor identified infection/symptoms 8. Provide and discuss with patient/patient investment representative on educational MDRO sheet 9. Encourage and monitor nutritional status daily and consult product strategy director if indicated 10. Implement neutropenic guidelines as needed 11. Review exposure to history of communicable disease and recent travel history on admission 12. Encourage annual influenza vaccine 13. Encourage pneumonia vaccine Outcome: Progressing Note: Evaluation of progress towards goal: pt remains afebrile at this time. Problem: Knowledge Deficit Goal: Patient/patient investment representative demonstrates understanding of disease process, treatment [...] Collaborate with ancillary departments 14. Include patient/patient investment representative in decisions related to anxiety Outcome: [...] care 6. Collaborate with pastoral/spiritual care, social director, mental health counselor as needed. 7. Instruct patient on diversional activities such as physical activity, distraction, and deep breathing exercises to assist with coping 8. Involve patient's investment representative in care Outcome: Progressing Note: Evaluation [...] hydration as ordered 5. Instruct patient/ legal investment representative on nutrition/diet; fluid/hydration restrictions as appropriate Outcome: Progressing Note: Evaluation of progress towards goal: electrolytes continue to need replacement at this time. [facility]10-03-2024 History of Present illness Narrative* AMEENA Vallejo - 12/03/2023 4:23 PM EDT Patient's insurance not accepted over [facility]. Referral sent to [facility] who reportedly cannotsee her until . Spoke with patient who requested a referral be sent to [facility]. AMEENA Vallejo 12/03/23 1629 documented in this [facility] Consult note* Shanon Joe MD - 12/03/2023 4:08 PM EDTAssociated Order(s): IP CONSULT TO CARDIOLOGY Reason for consult: Abnormal ECG History of present illness: The patient is a 53-year-old woman. She was admitted to [facility] December 03, 2023. She reports having fevers and feeling unwell. She has been undergoing treatmentfor breast cellulitis. She denies any chest discomfort or dyspnea. She has no palpitations. She normally follows with Dr. Clint Bazan of [facility] Allergies: Meperidine, daptomycin, adhesive Medications: [...] cell count 5.8, hemoglobin 8.0, platelet count [id number]. Sodium 137, potassium 3.1,chloride 104, bicarb 25, [...] patient will follow up with her primary structural technician Dr. Clint Bazan. [employer] Work Phone: 1(102) 363-235010-03-2024 Consult note* Shanon Joe MD - 12/03/2023 4:08 PM EDTAssociated Order(s): IP CONSULT TO CARDIOLOGY Reason for consult: Abnormal ECG History of present illness: The patient is a 53-year-old woman. [facility] She reports having fevers and feeling unwell. She has been undergoing treatmentfor breast cellulitis. She denies any chest discomfort or dyspnea. She has no palpitations. She normally follows with Dr. Clint Bazan of [facility] Allergies: Meperidine, daptomycin, adhesive Medications: [...] cell count 5.8, hemoglobin 8.0, platelet count [id number]. Sodium 137, potassium 3.1,chloride 104, bicarb 25, [...] patient will follow up with her primary structural technician Dr. Clint Bazan. * Carlene Noguera MD - 12/03/2023 2:03 PM EDTAssociated Order(s): IP CONSULT TO INFECTIOUS DISEASES Images from the original note were not included. [facility] - Initial Consult Note Ike Flannery Admit date/time 12/02/2023 9:55 PM Today's Date and Time: 12/03/2023, 2:03 PM Impression: Left breast cellulitis Postop infection of left breast tissue professional wrestler-culture growing acid-fast bacilli Acute kidney injury History [...] care Ambulatory referrals to Infectious Disease at [facility], [facility], [facility] have been placed for F/U acid-fast bacilli. Patient was notified by [facility] that she can not use her insurance over [facility] line. We will send referral per patient request to [facility]. Reason for consultation: Infection on IV antibiotics, established patient Chief complaint Postop problem History of Present Illness: Ike Flannery is a 53 y.o.-year-old female who was initially admitted on 12/02/2023. Patient presents to hospital with complaints fever, chills, and vomiting. Patient was recently admitted and discharged from [facility] after removal of infected tissue professional wrestler. She was discharged home on Vancomycin and Ertapenem to continue tentatively until December 08. [facility] for lab draw. Last night, we were notified that creatinine was 2.56 and vanco trough 33. Patient also complaining nausea, fever, and chills and was advised to go to ER. Left breast cultures from previous admission are preliminarily growing acid-fast bacilli. [facility]have been made to [facility] , [facility], and [facility] for management/treatment. Per patient, [facility] notified her today and stated they cannot accept her insurance. [facility] cannot see her until December or January. Will place referral to [facility] per patient request. Patient states she feels better today with no further nausea or vomiting.. WBC stable. Denies any cough or shortness of breath. Pain is stable I have personally reviewed the past medical history, past surgical history, medications, social history, and family history, and I have updated the database accordingly. Past Medical History: Past Medical History: Diagnosis Date Breast [place] 2023 mammary carcinoma Deep vein thrombosis ([facility]) 09/18/2023 Left calf Hypertension Knee pain PONV (postoperative nausea and vomiting) Port-A-Cath in place 05/13/2023 Visual impairment Glasses Past Surgical History: Past Surgical History: Procedure Laterality Date ARTHROSCOPIC REPAIR ACL Right 2006 ARTHROSCOPIC REPAIR ACL Left 08/26/2021 BREAST BIOPSY Right 2023 mammary carcinoma EXCISION LYMPH NODE AXILLARY DISSECTION Right 10/28/2023 Performed by Christy He MD at [facility] HYSTERECTOMY IMMEDIATE BREAST RECONSTRUCTION WITH TISSUE SAW CLEANER PLACEMENT Bilateral 10/28/2023 Performed by Jhon Rosado MD at [facility] INCISION DRAINAGE BREAST Left 11/27/2023 Performed by Jhon Rosado MD at [facility] MAGNETIC SEED LOCALIZATION EXCISION/BIOPSY MASS BREAST (MAG SEED LOCALIZED TARGETED DISSECTION FOR RETRIEVAL OF PREVIOUSLY CLIPPED LYMPH NODE) Right 10/28/2023 Performed by Christy He MD at [facility] MASTECTOMY BREAST SIMPLE RISK REDUCING SKIN SPARING Left 10/28/2023 Performed by Christy He MD at [facility] MASTECTOMY BREAST SIMPLE SKIN SPARING Right 10/28/2023 Performed by Christy He MD at [facility] MENISCECTOMY Bilateral 2022 PORTACATH PLACEMENT Left left chest REMOVAL SAW CLEANER TISSUE BREAST Left 11/27/2023 Performed by Jhon Rosado MD at [facility] RIGHT AXILLARY PROPHYLACTIC BYPASS LYMPHOVENOUS Right 10/28/2023 Performed by Jhon Rosado MD at [facility] TONSILLECTOMY AND ADENOIDECTOMY Age 3 TUMOR REMOVAL [...] 60 min Stress: Stress Concern Present (02/27/2022) [facility] [employer] - Occupational Stress Questionnaire Feeling of Stress : To some extent Social Connections: Socially Integrated (02/27/2022) Social Connection and Isolation Panel [NHANES] Frequency of Communication with Friends and Family: Twice a week Frequency of Social Gatherings with Friends and Family: Three times a week Attends Confucianism Services: More than 4 times per year [...] Procedure Component Value Units Date/Time Urine culture [[id number]] Collected: 12/02/23 2341 Specimen: Urine Updated: 12/03/23828 Blood culture [[id number]] Collected: 12/02/232235 Specimen: Blood, Peripheral Draw Updated: 12/02/232235 Blood culture [[id number]] Collected: 12/02/232235 Specimen: Blood, Peripheral Draw Updated: 12/02/232235 Anaerobic culture [[id number]] Collected: 11/27/23 1548 Specimen: Body Fluid from Breast, Left Updated: 12/02/23 0851 Specimen Notes SPECIMEN A Culture NO GROWTH 5 DAYS Fungal culture includes fungal smear [[id number]] Collected: 11/27/23 1548 Specimen: Body Fluid from Breast, Left Updated: 11/28/23 0702 Specimen Notes SPECIMEN A Fungal smear -- NO FUNGAL ELEMENTS SEEN ON DIRECT SMEAR Culture PENDING AFB culture concentrated includes AFB smear [[id number]] (Abnormal) Collected: 11/27/23 154 Specimen: Body Fluid from Breast, Left Updated: 12/01/23 1056 Specimen Notes SPECIMEN A AFB Smear NO ACID FAST BACILLI (CONCENTRATED SMEAR) Culture ACID FAST BACILLI ISOLATED Aspirate culture includes gram stain [[id number]] (Abnormal) Collected: 11/27/23 1548 Specimen: Aspirate Atr Updated: 12/01/23 1544 Specimen Notes SPECIMEN A Gram Stain Result >25 WHITE BLOOD CELLS/LPF 0 SQUAMOUS EPITHELIAL CELLS/LPF NO ORGANISMS SEEN Culture MODERATE ACID FAST BACILLI ISOLATED REPORT UPDATED GROWTH OBSERVED AT 48 HOURS Mrsa Pcr nasal swab [[id number]] Collected: 11/27/23 0020 Specimen: Nasal Updated: 11/27/23 0957 Mrsa PCR Negative Blood culture [[id number]] Collected: 11/26/23 1715 Specimen: Blood Updated: 12/01/23 2008 Culture NO GROWTH 5 DAYS Imaging Studies: No results found. Gino Munguia APRN, [facility] [phone] Thank you for allowing us to participate in the care of this patient. Please call with questions. Gino Munguia APRN-[facility] 12/03/23 3489 ICarlene MD, personally performed [id number] diagnostic evaluation on this patient I reviewed [...] from the hospital after removal of breast professional wrestler secondary to infection. She was discharged on [...] except for the removal of the breast professional wrestler and the IV antibiotics for the infection. [...] 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, 2023 Hypertension Edema Depression/anxiety [...] 60 min Stress: Stress Concern Present (02/27/2022) [employer] [facility] [employer] - Occupational Stress Questionnaire Feeling of Stress : To some extent Social Connections: Socially Integrated (02/27/2022) Social Connection and Isolation Panel [NHANES] Frequency of Communication with Friends and Family: Twice a week Frequency of Social Gatherings with Friends and Family: Three times a week Attends Confucianism Services: More than 4 times per year [...] 7 days Lab Units 12/03/23 0350 12/02/23 23012/02/232212 TOTAL PROTEIN g/dL 5.5* -- 6.4 ALBUMIN g/dL 3.3 -- 3.8 AST U/L 19 -- 24 ALT U/L 10 -- TOTAL BILIRUBIN mg/dL 0.6 -- 0.6 BILIRUBIN, URINE -- Negative -- ALK PHOS U/L 60 -- 69 Results from last 7 days Lab Units 12/03/23 0350 12/02/23221211/30/23 0911/27/23 0545 WBC X10E9/L 5.8 7.8 6.5 6.2 [...] call us with any questions at: Office: [phone] Office Answering Service: [phone] Epifanio Henry M.D. This note was created with the assistance of a speech-recognition program. Although the intention is to generate a document that actually reflects the content of the visit, no guarantees can be provided that every mistake has been identified and corrected by editing. documented in this encounterOhioHealth Southeastern Medical CenterEpigenomics AG [facility] [id number] Consult note* Carlene Noguera MD - 12/03/2023 2:03 PM EDTAssociated Order(s): IP CONSULT TO INFECTIOUS DISEASES Images from the original note were not included. [facility] - Initial Consult Note Ike Flannery Admit date/time 12/02/2023 9:55 PM Today's Date and Time: 12/03/2023, 2:03 PM Impression: Left breast cellulitis Postop infection of left breast tissue professional wrestler-culture growing acid-fast bacilli Acute kidney injury History [...] care Ambulatory ref[facility]ious [facility] at [facility], [facility]U acid-fast bacilli. Patient was notified by [facility] that she can not use her insurance over [facility] line. We will send referral per patient request to [facility]. Reason for consultation: Infection on IV antibiotics, established patient Chief complaint Postop problem History of Present Illness: Ike Flannery is a 53 y.o.-year-old female who was initially admitted on 12/02/2023. Patient presents to hospital with complaints fever, chills, and vomiting. Patient was recently admitted and discharged from [facility] after removal of infected tissue professional wrestler. She was discharged home on Vancomycin and Ertapenem to continue tentatively until December 08. [facility] Last night, we were notified that creatinine was 2.56 and vanco trough 33. Patient also complaining nausea, fever, and chills and was advised to go to ER. Left breast cultures from previous admission are preliminarily growing acid-fast bacilli. [facility]erralshave been made to [facility], and [facility] Infectious Disease for management/treatment. Per patient, [facility] notified her today and stated they cannot accept her insurance. [facility] cannot see her until December or January. Will place referral to [facility] per patient request. Patient states she feels better today with no further nausea or vomiting.. WBC stable. Denies any cough or shortness of breath. Pain is stable I have personally reviewed the past medical history, past surgical history, medications, social history, and family history, and I have updated the database accordingly. Past Medical History: Past Medical History: Diagnosis Date Breast cancer ([facility]) 2023 mammary carcinoma Deep vein thrombosis ([facility]) 09/18/2023 Left calf Hypertension Knee pain PONV (postoperative nausea and vomiting) Port-A-Cath in place 05/13/2023 Visual impairment Glasses Past Surgical History: Past Surgical History: Procedure Laterality Date ARTHROSCOPIC REPAIR ACL Right 2006 ARTHROSCOPIC REPAIR ACL Left 08/26/2021 BREAST BIOPSY Right 2023 mammary carcinoma EXCISION LYMPH NODE AXILLARY DISSECTION Right 10/28/2023 Performed by Christy He MD at [facility] HYSTERECTOMY IMMEDIATE BREAST RECONSTRUCTION WITH TISSUE SAW CLEANER PLACEMENT Bilateral 10/28/2023 Performed by Jhon Rosado MD at [facility] INCISION DRAINAGE BREAST Left 11/27/2023 Performed by Jhon Rosado MD at [facility] MAGNETIC SEED LOCALIZATION EXCISION/BIOPSY MASS BREAST (MAG SEED LOCALIZED TARGETED DISSECTION FOR RETRIEVAL OF PREVIOUSLY CLIPPED LYMPH NODE) Right 10/28/2023 Performed by Christy He MD at [facility] MASTECTOMY BREAST SIMPLE RISK REDUCING SKIN SPARING Left 10/28/2023 Performed by Christy He MD at [facility] MASTECTOMY BREAST SIMPLE SKIN SPARING Right 10/28/2023 Performed by Christy He MD at [facility] MENISCECTOMY Bilateral 2022 PORTACATH PLACEMENT Left left chest REMOVAL SAW CLEANER TISSUE BREAST Left 11/27/2023 Performed by Jhon Rosado MD at [facility] RIGHT AXILLARY PROPHYLACTIC BYPASS LYMPHOVENOUS Right 10/28/2023 Performed by Jhon Rosado MD at [facility] TONSILLECTOMY AND ADENOIDECTOMY Age 3 TUMOR REMOVAL [...] 60 min Stress: Stress Concern Present (02/27/2022) [facility] [employer] - Occupational Stress Questionnaire Feeling of Stress : To some extent Social Connections: Socially Integrated (02/27/2022) Social Connection and Isolation Panel [NHANES] Frequency of Communication with Friends and Family: Twice a week Frequency of Social Gatherings with Friends and Family: Three times a week Attends Confucianism Services: More than 4 times per year [...] Procedure Component Value Units Date/Time Urine culture [[id number]] Collected: 12/02/23 2341 Specimen: Urine Updated: 12/03/23 0829 Blood culture [[id number]] Collected: 12/02/232235 Specimen: Blood, Peripheral Draw Updated: 12/02/232235 Blood culture [[id number]] Collected: 12/02/232235 Specimen: Blood, Peripheral Draw Updated: 12/02/232235 Anaerobic culture [[id number]] Collected: 11/27/23 154 Specimen: Body Fluid from Breast, Left Updated: 12/02/23 0851 Specimen Notes SPECIMEN A Culture NO GROWTH 5 DAYS Fungal culture includes fungal smear [[id number]] Collected: 11/27/23 1548 Specimen: Body Fluid from Breast, Left Updated: 11/28/23 0702 Specimen Notes SPECIMEN A Fungal smear -- NO FUNGAL ELEMENTS SEEN ON DIRECT SMEAR Culture PENDING AFB culture concentrated includes AFB smear [[id number]] (Abnormal) Collected: 11/27/23 1548 Specimen: Body Fluid from Breast, Left Updated: 12/01/23 1056 Specimen Notes SPECIMEN A AFB Smear NO ACID FAST BACILLI (CONCENTRATED SMEAR) Culture ACID FAST BACILLI ISOLATED Aspirate culture includes gram stain [[id number]] (Abnormal) Collected: 11/27/23 1548 Specimen: Aspirate Atr Updated: 12/01/23 1544 Specimen Notes SPECIMEN A Gram Stain Result >25 WHITE BLOOD CELLS/LPF 0 SQUAMOUS EPITHELIAL CELLS/LPF NO ORGANISMS SEEN Culture MODERATE ACID FAST BACILLI ISOLATED REPORT UPDATED GROWTH OBSERVED AT 48 HOURS Mrsa Pcr nasal swab [[id number]] Collected: 11/27/23 0020 Specimen: Nasal Updated: 11/27/23 0957 Mrsa PCR Negative Blood culture [[id number]] Collected: 11/26/23 1715 Specimen: Blood Updated: 12/01/232007 Culture NO GROWTH 5 DAYS Imaging Studies: No results found. Gino Mcnealmerrill [facility] [phone] Thank you for allowing us to participate in the care of this patient. Please call with questions. [facility]ino [facility]ung[facility]ia [facility] 12/03/23 1419 ICarlene MD, personally performed [id number] diagnostic evaluation on this patient I reviewed and performed all the ross component of the patient visit I reviewed CELINA history, exam and MDM - Carlene Noguera MD 12/03/23 3:19 PM [facility]10-03-2024 Consult note* Epifanio Henry MD [...] from the hospital after removal of breast professional wrestler secondary to infection. She was discharged on [...] except for the removal of the breast professional wrestler and the IV antibiotics for the infection. [...] 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, 2023 Hypertension Edema Depression/anxiety [...] 60 min Stress: Stress Concern Present (02/27/2022) [facility] - Occupational Stress Questionnaire Feeling of Stress : To some extent Social Connections: Socially Integrated (02/27/2022) Social Connection and Isolation Panel [NHANES] Frequency of Communication with Friends and Family: Twice a week Frequency of Social Gatherings with Friends and Family: Three times a week Attends Confucianism Services: More than 4 times per year [...] last 7 days Lab Units 12/03/23 03512/02/23 23012/02/23 2213 TOTAL PROTEIN g/dL 5.5* -- 6.4 ALBUMIN g/dL 3.3 -- 3.8 AST U/L 19 -- 24 ALT U/L 10 -- 12 TOTAL BILIRUBIN mg/dL 0.6 -- 0.6 BILIRUBIN, URINE -- Negative -- ALK PHOS U/L 60 -- 69 Results from last 7 days Lab Units 12/03/23 03512/02/23221211/30/2330 11/27/23 0545 WBC X10E9/L 5.8 7.8 6.5 [...] call us with any questions at: Office: [phone] Office Answering Service: [phone] Epifanio Henry M.D. This note was created with the assistance of a speech-recognition program. Although the intention is to generate a document that actually reflects the content of the visit, no guarantees can be provided that every mistake has been identified and corrected by editing. [facility]10-03-2024 Progress note* Discharge Planning Note - Heike Anderson - 12/03/2023 9:59 AM EDT DISCHARGE PLANNING NOTE Referral to [facility], [facility]- [place], [place] [facility] - (P# ; F# ) [facility]10-03-2024 Progress note* Discharge Planning Note - Mariah Starr RN - 12/03/2023 9:16 AM EDT DISCHARGE PLANNING NOTE Model Builder Display met with patient and at bedside, introduced [...] - Vanco/Ertapenum at home thru [facility] with [facility] drawing labs three days a week and weekly port dressing changes. Patient denies need for transportation/ food/ prescription medication assistance resources. PCP: RICHIE HANNA, ROBER-RETURNED CASE INSPECTOR Pharmacy:[facility] in [place] PCP and pharmacy confirmed with patient. CN offered to assist with follow up appointment arrangements, patient declined need. Current discharge plan is: home with IV antibiotics Task sent to [facility] to send referral to [facility]. Will continue to follow as plan of care develops. CN discussed benefits and importance of medication compliance and follow ups. - MARIAH STARR RN 12/03/23 9:16 AM [facility]10-03-2024 Plan of care note* Plan of Care - Shanice Hogan RN - 12/03/2023 1:08 AM EDT Problem: Low Risk Fall Score Description: [place] Fall Score of 0 - 24 or indicated by [facility] Assessment Goal: Patient should be free from fall Description: Interventions: 1. [place] to environment 2. Hourly rounds addressing the [...] non-skid footwear 11. Teach patient and patient investment representative to maintain environment for safety and [...] Description: INTERVENTIONS: 1. Encourage patient or legal investment representative to report early pain and ask [...] per policy 9. Teach patient or legal investment representative interventions for comforting Outcome: Progressing Note: [...] at the bedside 7. Instruct patient/ patient investment representative about use of safety devices 8. Include patient/ patient investment representative in decisions related to safety Outcome: [...] hygiene technique 7. Identify and instruct patient/patient investment representative in use of appropriate isolation precautionsfor identified infection/symptoms 8. Provide and discuss with patient/patient investment representative on educational MDRO sheet 9. Encourage and monitor nutritional status daily and consult product strategy director if indicated 10. Implement neutropenic guidelines as needed 11. Review exposure to history of communicable disease and recent travel history on admission 12. Encourage annual influenza vaccine 13. Encourage pneumonia vaccine Outcome: Progressing Note: Evaluation of progress towards goal: Afebrile, labs and VS monitored Problem: Knowledge Deficit Goal: Patient/patient investment representative demonstrates understanding of disease process, treatment [...] Collaborate with ancillary departments 14. Include patient/patient investment representative in decisions related to anxiety Outcome: [...] care 6. Collaborate with pastoral/spiritual care, social director, mental health counselor as needed. 7. Instruct patient on diversional activities such as physical activity, distraction, and deep breathing exercises to assist with coping 8. Involve patient's investment representative in care Outcome: Progressing Note: Evaluation [...] hydration as ordered 5. Instruct patient/ legal investment representative on nutrition/diet; fluid/hydration restrictions as appropriate Outcome: Progressing Note: Evaluation of progress towards goal: Display of normal lab values. Electrolytes are replaced as needed. [facility]10-03-2024 History and physical note* Elayne Chow MD - 12/03/2023 12:25 AM EDT Images from the original note were not included. [facility] PHYSICIANS [facility] INTERNAL MEDICINE [facility] DIVISION OF [facility] -EMERGENCY DEPT [address] [id number] Hospital Medicine History & Physical Patient: Ike [...] chills [facility] Allergies: Meperidine, Daptomycin, and Adhesive Prior to [...] taking: Reported on 10/28/2023 03/07/22 Richie Hanna APRN-ESPERANZA capecitabine (XELODA) 500 mg chemo tablet Take by mouth after surgery Patient not taking: Reported on 10/16/2023 10/13/23 Not In System Ref Prov chlorthalidone (HYGROTON) 25 mg tablet Take 0.5 tablets (12.5 mg total) by mouth daily. 03/03/23 Not In System Ref Prov cyclobenzaprine (FLEXERIL) 10 mg tablet TAKE ONE TABLET BY MOUTH ONCE DAILY IN THE EVENING 04/28/23 SulmaMarilu Manuel APRN-VOCAL MUSIC INSTRUCTOR dexAMETHasone (DECADRON) 1 mg tablet TAKE ONE TABLET BY MOUTH TWICE A DAY ON DAYS 3-6 AFTER CHEMOTHERAPY FOR FATIGUE Patient not taking: Reported on 10/16/2023 04/21/23 Not In System Ref Prov diazePAM (VALIUM) 5 mg tablet Take 1 tablet (5 mg total) by mouth every 6 (six) hours as needed formuscle spasms. 11/11/23 Marisela Cuevas APRN-RETURNED CASE INSPECTOR DULoxetine (CYMBALTA) 30 mg capsule Take 1 [...] for 10 days. 11/29/23 12/09/23 Leelee Lieberman APRN-RETURNED CASE INSPECTOR ferrous sulfate 325 (65 FE) mg tablet Take 1 tablet (325 mg total) by mouth in the morning. Patient not taking: Reported on 07/30/2023 03/07/22 Richie Hanna APRN-RETURNED CASE INSPECTOR fluticasone propionate (FLONASE) 50 mcg/actuation nasal spray [...] a past medical history of Breast cancer ([facility]) (2023), Deep vein thrombosis ([facility]-HCC) (09/18/2023), Hypertension, Knee pain, PONV (postoperative nausea [...] excision (Right, 10/28/2023); Mastectomy (Left, 10/28/2023); Tissue professional wrestler placement (Bilateral, 10/28/2023); Lymph node dissection (Right, 10/28/2023); Tissue professional wrestler removal (Left, 11/27/2023); and Incision and drainage [...] data in the 24 hours ending 12/02/23 8274 Physical Exam Constitutional: General: Not in acute distress. Appearance: Normal appearance and is well-developed. HENT: Head: Normocephalic and atraumatic. Right Ear: External ear normal. Left Ear: External ear normal. Nose: Nose normal. Mouth/Throat: Lips: [place]. Eyes: General: No scleral icterus. Extraocular Movements: [...] LIST Principal Problem: MIRNA (acute kidney injury) ([facility]) ASSESSMENT & PLAN Acute kidney [...] needs while inpatient History of DVT Continue theresaquanamaria, reports she has been resumed on this post surgery and is doing well with no bleeding HTN Hold lisinopril, lasix and spironolactone until MIRNA improves Insomnia Continue home medications Admission orders placed and home medications reconciled. DVT/VTE prophylaxis: SCD and pharmacologic prophylaxis, DOAC, continue home dose. DC planning: home pending clinical course. CHRIS HOLLIS PA-C 12/03/2023 12:26 AM [facility] 7AM-7PM (all facilities): EpicChat or page through Feedbooks. 7PM-7AM ([facility], [facility] Psychiatry and Inpatient Rehab): EpicChat or page, [phone]. 7PM-7AM ([place], [place], [place], [place] and [facility] Rehab): EpicChat or page through Vocera. Chris [...] ID and Nephrology input. Elayne Chow MD [facility]10-03-2024 History and physical note* Elayne Chow MD - 12/03/2023 12:25 AM EDT Images from the original note were not included. [facility] -EMERGENCY DEPT [address] [place] [id number] Hospital Medicine History & Physical Patient: Ike [...] taking: Reported on 10/28/2023 03/07/22 Richie Hanna APRN-ESPERANZA capecitabine (XELODA) 500 mg chemo tablet Take by mouth after surgery Patient not taking: Reported on 10/16/2023 10/13/23 Not In System Ref Prov chlorthalidone (HYGROTON) 25 mg tablet Take 0.5 tablets (12.5 mg total) by mouth daily. 03/03/23 Not In System Ref Prov cyclobenzaprine (FLEXERIL) 10 mg tablet TAKE ONE TABLET BY MOUTH ONCE DAILY IN THE EVENING 04/28/23 ALEN Amador dexAMETHasone (DECADRON) 1 mg tablet TAKE ONE [...] not taking: Reported on 07/30/2023 03/07/22 Richie Hanna APRN-ESPERANZA fluticasone propionate (FLONASE) 50 mcg/actuation nasal spray [...] hours for 10 days. 11/29/23 12/09/23 Leelee Zirker, REFLOW OPERATOR-RETURNED CASE INSPECTOR Past Medical History: Patient has a past medical history of Breast cancer ([facility]) (2023), Deep vein thrombosis ([facility]) (09/18/2023), Hypertension, Knee pain, PONV (postoperative nausea [...] excision (Right, 10/28/2023); Mastectomy (Left, 10/28/2023); Tissue professional wrestler placement (Bilateral, 10/28/2023); Lymph node dissection (Right, 10/28/2023); Tissue professional wrestler removal (Left, 11/27/2023); and Incision and drainage [...] ear normal. Nose: Nose normal. Mouth/Throat: Lips: [place]. Eyes: General: No scleral icterus. Extraocular Movements: [...] LIST Principal Problem: MIRNA (acute kidney injury) ([facility]) ASSESSMENT & PLAN Acute kidney [...] CHRIS HOLLIS PA-C 12/03/2023 12:26 AM [facility] 7AM-7PM (all facilities): EpicChat or page through Feedbooks. 7PM-7AM ([facility], [facility] Psychiatry and Inpatient Rehab): EpicChat or page, [phone]. 7PM-7AM ([place], [place], [place], [place] and [facility] Rehab): EpicChat or page through Feedbooks. Chris Hollis PA-C 12/03/23 0025 Chris Hollis [...] input. Elayne Chow MD [facility] Physician Emergency department Note* Kayleigh Adames, DO - 12/02/2023 10:13 PM EDT Images [...] and was sent by infectious disease tonight Inital Evaluation by Dr. Adames at 10:13 [...] to drink water. 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 Problem List Items Addressed This Visit None Past Medical History: Diagnosis Date Breast cancer ([facility]) 2023 mammary carcinoma Deep vein thrombosis ([facility]) 09/18/2023 Left calf Hypertension Knee pain PONV (postoperative nausea and vomiting) Port-A-Cath in place 05/13/2023 Visual impairment Glasses Past Surgical History: Procedure Laterality Date ARTHROSCOPIC REPAIR ACL Right 2006 ARTHROSCOPIC REPAIR ACL Left 08/26/2021 BREAST BIOPSY Right 2023 mammary carcinoma EXCISION LYMPH NODE AXILLARY DISSECTION Right 10/28/2023 Performed by Christy He MD at [facility] HYSTERECTOMY IMMEDIATE BREAST RECONSTRUCTION WITH TISSUE SAW CLEANER PLACEMENT Bilateral 10/28/2023 Performed by Jhon Rosado MD at [facility] INCISION DRAINAGE BREAST Left 11/27/2023 Performed by Jhon Rosado MD at [facility] MAGNETIC SEED LOCALIZATION EXCISION/BIOPSY MASS BREAST (MAG SEED LOCALIZED TARGETED DISSECTION FOR RETRIEVAL OF PREVIOUSLY CLIPPED LYMPH NODE) Right 10/28/2023 Performed by Christy He MD at [facility] MASTECTOMY BREAST SIMPLE RISK REDUCING SKIN SPARING Left 10/28/2023 Performed by Christy He MD at [facility] MASTECTOMY BREAST SIMPLE SKIN SPARING Right 10/28/2023 Performed by Christy He MD at [facility] MENISCECTOMY Bilateral 2022 PORTACATH PLACEMENT Left left chest REMOVAL SAW CLEANER TISSUE BREAST Left 11/27/2023 Performed by Jhon Rosado MD at [facility] RIGHT AXILLARY PROPHYLACTIC BYPASS LYMPHOVENOUS Right 10/28/2023 Performed by Jhon Rosado MD at [facility] TONSILLECTOMY AND ADENOIDECTOMY Age 3 TUMOR REMOVAL [...] of 12/09/23 1236 MIRNA (acute kidney injury) ([facility]) Infection of deep incisional surgical site after procedure, initial encounter 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 Adames. Chart Reviewed. Date: [...] bolus (1,000 mL intravenous New Bag 12/02/23 6918) Medication List None Diagnosis: 1. MIRNA (acute kidney injury) ([facility]) Disposition: Patient's disposition: Admit Patient's condition is stable. Critical Care time: Provider Statement By electronically signing this emergency patient record, the Emergency Physician/POLYSOMNOGRAPHY TECH/PA-C attests that all entries made into the electronic medical record by annamarie Pak prior to the Physician/POLYSOMNOGRAPHY TECH/PA-C signature reflect an accurate accounting of the evaluation and care rendered by that Malini laracy Physician/POLYSOMNOGRAPHY TECH/PA-C. The Emergency Physician/POLYSOMNOGRAPHY TECH/PA-C assumes full responsibility for those entries. The Emergency Physician/POLYSOMNOGRAPHY TECH/PA-C also attests that any patient testing or treatment that was instituted by nursing staff in accordance to Emergency Department Preemptive Guidelines have been reviewed and unless so stated elsewhere in this patient chart, the Physician/POLYSOMNOGRAPHY TECH/PA-C agrees with the testing and care provided. Provider Statement: By electronically signing this emergency patient record, the Emergency Physician/POLYSOMNOGRAPHY TECH/PA-C attests that all entries made into the electronic medical record by the scribe prior to the Physician/POLYSOMNOGRAPHY TECH/PA-C signature reflect an accurate accounting of the evaluation and care rendered by that Emergency Physic milagro/POLYSOMNOGRAPHY TECH/PA-C. The Emergency Physician/POLYSOMNOGRAPHY TECH/PA-C assumes full responsibility for those entries. Jeff Becker 12/02/23 2221 Jeff Becker 12/02/23 2305 Kayleigh Adames DO 12/05/23 2359 [facility]10-02-2024 Emergency department Note* Kayleigh Adames [...] chills and was sent by infectious disease [facility] Inital Evaluation by Dr. Adames at [...] to drink water. 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 Problem List Items Addressed This [...] 10/28/2023 Performed by Christy He MD at [facility] HYSTERECTOMY IMMEDIATE BREAST RECONSTRUCTION WITH TISSUE SAW CLEANER PLACEMENT Bilateral 10/28/2023 Performed by Jhon Rosado MD at [facility] INCISION DRAINAGE BREAST Left 11/27/2023 Performed by Jhon Rosado MD at [facility] MAGNETIC SEED LOCALIZATION EXCISION/BIOPSY MASS BREAST (MAG SEED LOCALIZED TARGETED DISSECTION FOR RETRIEVAL OF PREVIOUSLY CLIPPED LYMPH NODE) Right 10/28/2023 Performed by Christy He MD at [facility] MASTECTOMY BREAST SIMPLE RISK REDUCING SKIN SPARING Left 10/28/2023 Performed by Christy He MD at [facility] MASTECTOMY BREAST SIMPLE SKIN SPARING Right 10/28/2023 Performed by Christy He MD at [facility] MENISCECTOMY Bilateral 2022 PORTACATH PLACEMENT Left left chest REMOVAL SAW CLEANER TISSUE BREAST Left 11/27/2023 Performed by Jhon Rosado MD at [facility] RIGHT AXILLARY PROPHYLACTIC BYPASS LYMPHOVENOUS Right 10/28/2023 Performed by Jhon Rosado MD at [facility] TONSILLECTOMY AND ADENOIDECTOMY Age 3 TUMOR REMOVAL [...] of 12/09/23 1236 MIRNA (acute kidney injury) ([facility]) Infection of deep incisional surgical site after [...] bolus (1,000 mL intravenous New Bag 12/02/23 351) Medication List None Diagnosis: 1. MIRNA (acute kidney injury) ([facility]) Disposition: Patient's disposition: Admit Patient's condition is stable. Critical Care time: Provider Statement By electronically signing this emergency patient record, the Emergency Physician/POLYSOMNOGRAPHY TECH/PA-C attests that all entries made into the electronic medical record by annamarie Pak prior to the Physician/POLYSOMNOGRAPHY TECH/PA-C signature reflect an accurate accounting of the evaluation and care rendered by that Malini lara Physician/POLYSOMNOGRAPHY TECH/PA-C. The Emergency Physician/POLYSOMNOGRAPHY TECH/PA-C assumes full responsibility for those entries. The Emergency Physician/POLYSOMNOGRAPHY TECH/PA-C also attests that any patient testing or treatment that was instituted by nursing staff in accordance to Emergency Department Preemptive Guidelines have been reviewed and unless so stated elsewhere in this patient chart, the Physician/POLYSOMNOGRAPHY TECH/PA-C agrees with the testing and care provided. Provider Statement: By electronically signing this emergency patient record, the Emergency Physician/POLYSOMNOGRAPHY TECH/PA-C attests that all entries made into the electronic medical record by the scribe prior to the Physician/POLYSOMNOGRAPHY TECH/PA-C signature reflect an accurate accounting of the evaluation and care rendered by that Emergency Physic milagro/POLYSOMNOGRAPHY TECH/PA-C. The Emergency Physician/POLYSOMNOGRAPHY TECH/PA-C assumes full responsibility for those entries. Jeff Becker 12/02/232220 Jeff Becker 12/02/23 2309 Kayleigh Adames DO 12/05/23 1651 documented in this encounterTrumbull [facility] Center10-02-2024 History of Present illness Narrative* AMEENA Vallejo - 12/02/2023 9:25 PM EDT 1300: spoke with Purvi RENAE from [facility] who received call from [facility] RN to report Vanco level of 33. She stated that infusion center RN then infused patient's vancomycin. Reportedly, patient had brought her vanco dose with her when she went to infusion center to get labs drawn and asked RN at center to operations superintendent her vanco while she was there. Purvi stated she called [facility] to speak with pharmacist regarding vanco trough and that the patient received vanco dose. I called RN at infusion center (John) and provided clinic fax number to send lab results. AMEENA Vallejo 12/02/232132 documented in this encounterTrumbull Regional Medical Center10-02-2024 History of Present illness Narrative* AMEENA Salazar [...] I and D with removal of tissue professional wrestler 11/27/2023 I have directed patient to the ER at this time for evaluation . Patient states she [facility] the following: Consideration for admission Check Blood Cultures Check Creat Please contact our service for further direction ([facility], Dr Carlene Noguera) AMEENA Salazar 12/02/231940 documented in this encounterTrumbull Regional Medical Center10-02-2024 Miscellaneous Notes* Telephone Encounter - Kendra Lewis - 12/02/2023 7:20 PM EDT Contract: 174 RE Chills, Nausea, Fever 100.9 * Telephone Encounter - Kendra Lewis - 12/02/2023 7:20 PM EDT Secure chat sent to Shanice Shook CNP documented in this encounterTrumbull Regional Medical Center10-02-2024 Telephone encounter Note* Telephone Encounter - Kendra Lewis - 12/02/2023 7:20 PM EDT Contract: 174 RE Chills, Nausea, Fever 100.9 [facility]10-[facility] Telephone encounter Note* Telephone Encounter - Kendra Lewis - 12/02/2023 7:20 PM EDT Secure chat sent to Shanice Shook CNP [facility]10-02-[facility] History of Present illness Narrative* [...] Discussed with bio script pharmacist Zohra from [facility]. AMEENA Gomez 12/02/23 191 documented in this encounterTrumbull Regional Medical Center10-02-2024 History of Present illness Narrative* Jhon Rosado MD - 12/02/2023 10:00 AM EDT [facility] [address] Office Jhon Rosado MD, PhD AMEENA Kennedy PA-C Plastic Surgery Progress Note Reason for visit : 1 week postoperative appointment. History of present illness: Ike Flannery 53 y.o. is here today for a follow up after I&D of left breast with removal of left breast tissue professional wrestler on 11/27/2023. She presents to the office [...] air. Follow up next week for tissue professional wrestler filled. She was advised to call the office any questions orconcerns in the interim. - Marisela uCevas APRN-RETURNED CASE INSPECTOR 12/02/23 11:55 AM IJHON MD, PHD personally performed the face to face evaluation on this patient. I discussed with the patient and confirmed the accuracy and completeness of the aforementioned history,and I personally performed the clinical examination of the patient. I have established and discussed the course of treatment with the patient. Jhon Rosado MD, PhD [facility] Total time spent was 15 minutes: Preparing to see the patient (e.g., review of tests) Obtaining and/or reviewing separately obtained history Performing a medically appropriate examination and/or evaluation Counseling and educating the patient/family/caregiver Ordering medications, tests, or procedures Referring and communicating with other health inspector health care facilities (not separately reported) Documenting clinical information in the electronic or other health record Independently interpreting results (not separately reported) and communicating results to the patient/family/caregiver Care coordination (not separately reported) Please note that portions of this note were generated using voice recognition [employer] dictation software. Although every effort was made to ensure the accuracy of this automated chain carrier, some errors in chain carrier may have occurred. documented in this encounterTrumbull Regional Medical Center10-02-2024 Miscellaneous Notes* Telephone Encounter - Elisa Vallejo [...] I and D with removal of tissue professional wrestler 11/27/2023 Discharge Specialty: Infectious Disease *Name of Discharging Facility: [facility] Date of Facility Discharge: Admission 11/26/23 Discharge 11/30/23 Date of Interactive Contact and Name of Hand Shaper: 12/02/23 1011 am Spoke to patient. She was at Dr. Barbosa office. Patient was agreeable for global technical writer to call back in the afternoon [...] pain and SOB. Patient is going to [facility] three days a week for dressing change [...] by the Patient: NA documented in this encounterGifford Medical CenterRelative.ai [id number] Telephone encounter Note* Telephone Encounter - Elisa [...] I and D with removal of tissue professional wrestler 11/27/2023 Discharge Specialty: Infectious Disease *Name of Discharging Facility: [facility] Date of Facility Discharge: Admission 11/26/23 Discharge 11/30/23 Date of Interactive Contact and Name of Hand Shaper: 12/02/23 1011 am Spoke to patient. She was at Dr. Barbosa office. Patient was agreeable for global technical writer to call back in the afternoon [...] pain and SOB. Patient is going to [facility] three days a week for dressing change [...] Other Services Utilized/Needed by the Patient: NA [facility] [id number] Miscellaneous Notes* Telephone Encounter - Concha Mcgregor - 11/28/2023 6:45 PM EDT Contract: Archana Rm 712 RE IV Reaction to meds * Telephone Encounter - Concha Mcgregor - 11/28/2023 6:45 PM EDT Contract: [address] Rosado and connected call documented in this encounterOhioHealth Southeastern [facility] CenterMoh[facility]-28-[facility] Telephone encounter Note* Telephone Encounter - Concha Thomas Mcgregor - 11/28/2023 6:45 PM EDT Contract: 206 Flower Rm 712 RE IV Reaction to meds [facility]09-28-2024 Telephone encounter Note* Telephone Encounter - Concha Mcgregor - 11/28/2023 6:45 PM EDT Contract: [address] Rosado and connected call [facility]09-26-[facility] History of Present illness Narrative* Jhon Rosado MD - 11/26/2023 11:45 AM EDT [facility] [address] Office Jhon Rosado MD, PhD Marisela Cuevas, REFLOW OPERATOR-RETURNED CASE INSPECTOR Shereen Smallwood PA-C Plastic Surgery Progress Note [...] possible infected seroma in the setting tissue professional wrestler reconstruction Recommendations: discussed with patient that given the appearance of her breast we would like to becautious and admit her to the hospital for IV antibiotics. Discussed that we have a suspicion for infection. We discussed that we would like to proceed with removal of her tissue professional wrestler tomorrow and place a drain. We discussed since she does need post operative radiation that we would not want toplace a new tissue professional wrestler. Direct admission has been started. Please note that portions of this note were generated using voice recognition [employer] dictation software. Although every effort was made to ensure the accuracy of this automated chain carrier, some errors in chain carrier may have occurred. I, JHON ROSADO MD, PHD personally performed the face to face evaluation on this patient. I discussed with the patient and confirmed the accuracy and completeness of the aforementioned history,and I personally performed the clinical examination of the patient. I have established and discussed the course of treatment with the patient. Jhon Rosado MD, PhD [facility] Total time spent was 25 minutes: Preparing to see the patient (e.g., review of tests) Obtaining and/or reviewing separately obtained history Performing a medically appropriate examination and/or evaluation Counseling and educating the patient/family/caregiver Ordering medications, tests, or procedures Referring and communicating with other health inspector health care facilities (not separately reported) Documenting clinical information in the electronic or other health record Independently interpreting results (not separately reported) and communicating results to the patient/family/caregiver Care coordination (not separately reported) documented in this encounterTrumbull Regional Medical Center09-25-2024 History of Present illness Narrative* Marisela Cuevas, REFLOW OPERATOR-RETURNED CASE INSPECTOR - 11/25/2023 3:00 PM EDT [facility] [address] Office Jhon Rosado MD, PhD Marisela Cuevas, REFLOW OPERATOR-RETURNED CASE INSPECTOR Shereen Smallwood PA-C Plastic Surgery Progress Note Reason for visit : Tissue professional wrestler fill and drain removal. History of present illness: Ike Flannery 53 y.o. is here today for a follow up after bilateral breast reconstruction with placement of tissue expanders. She presents to the office today for removal ARTEMIO drain and tissue professional wrestler filled. She does need postoperative radiation therapy. She does state that she is doing well. She has noticed that her left breast has been slightly more swollen than right. She is not having any fevers or chills. ARTEMIO drain outputs have been less than 20 mL a day for 4 consecutive days. Review of systems: Negative for fever or chills. Denies surgical site concerns. Physical Examination: Vitals: 11/25/23 1453 BP: 122/87 Pulse: 99 Resp: 16 There is no height or weight on file to calculate BMI. General exam: Alert and oriented x 3, comfortable, non-toxic. S1, S2. Nonlabored breathing. Abdomen soft/non-tender/non-distended. Extremities warm, well perfused. Negative Gretchen's sign. Focused examination : Bilateral breast incisions are clean, dry and intact. No erythema or necrosispresent. Left breast with ballotable fluid collection palpated. Nipple-areolar complexes are surgically absent. ARTEMIO drain in place, draining serosanguineous fluid. Right-sided ARTEMIO drain site appears benign. Procedure note : After verbal consent was obtained, the left tissue professional wrestler aspirate port, was identified using a magnet. This area was cleansed with alcohol, and Betadine. Then using a 25 gauge needle, approximately 150ml cloudy yellow appearing fluid was aspirated from the left tissue professional wrestler. Patient tolerated well. Adequate hemostasis was achieved, and a sterile bandage was applied. Procedure note : Tissue professional wrestler fill port, was identified using magnet. This area was cleansed with alcohol, and Betadine. Then using a 25 gauge needle, approximately 150ml normal saline was injected into right tissue professional wrestler(s). Patient tolerated well. Adequate hemostasis was achieved, and a sterile bandage was applied. TOTAL FILL VOLUME: 250ML Impression: 1. Encounter for postoperative care 2. Acquired absence of breast, bilateral Recommendations: Right-sided ARTEMIO drain removed in office today. Patient tolerated well. Left tissue professional wrestler was then aspirated. Patient tolerated well. Discussed given that has a slightly cloudy appearance that it will send this off for culture. Discussed this takes approximately 5 days to get results. I will contact her with these when they are available. Held off on filling her left tissue professional wrestler in office today given fluid collection. Right tissue professional wrestler filled performed. Patient tolerated well. Continue with supportive bra. Continue to limit any heavy lifting pushing or pulling. Okay to work on gentle shoulder range of motion. Discussed I will also review fluid collection with Dr. Rosado. Follow up next week for TE fill. She was advised to call the office any questions or concerns in the interim. - AMEENA Rand 11/25/23 5:19 PM Please note that portions of this note were generated using voice recognition [employer] dictation software. Although every effort was made to ensure the accuracy of this automated chain carrier, some errors in chain carrier may have occurred. AMEENA Kennedy 11/25/23 1719 documented in this encounterOhioHealth Southeastern Medical CenterEpigenomics AG [facility] [id number] History of Present illness Narrative* AMEENA Kennedy - 11/18/2023 11:30 AM EDT [facility] [address] Office Jhon Rosado MD, PhD AMEENA Kennedy PA-C Plastic Surgery Progress Note Reason for visit : routine post operative follow up. History of present illness: Ike Flannery 53 y.o. is here today for a follow up after bilateral skin sparing mastectomies and right axillary node dissection (Dr. He) with immediate bilateral breast reconstruction with placement of tissue expanders and right prophylactic lymphovenous bypass on 10/29/23. She presents to the office today for routine postoperative appointment, drain removal and tissue professional wrestler filled. She states that she is doing well. Drains remain in place. Drains 1, and3 with outputs less than 20 mL for 3 consecutive days. Drain 2. With outputs 30-40 mL a day. Review of systems: Negative for fever or chills. Denies surgical site concerns. Physical Examination: Vitals: 11/18/23 1130 BP: 121/81 Pulse: 103 Resp: 12 There is no height or weight on file to calculate BMI. General exam: Alert and oriented x 3, comfortable, non-toxic. S1, S2. Nonlabored breathing. Abdomen soft/non-tender/non-distended. Extremities warm, well perfused. Negative Gretchen's sign. Focused examination : Bilateral breast incisions are clean, dry and intact. No erythema or necrosisnoted. No fluid collections are palpated. No open wounds or active drainage. Nipple-areolar complexes are surgically absent. Bilateral ARTEMIO drains are in place, draining serosanguineous fluid. ARTEMIO drainsites appear benign. Procedure note : Tissue professional wrestler fill port, was identified using magnet. This area was cleansed with alcohol, and Betadine. Then using a 25 gauge needle, approximately 100ml normal saline was injected into bilateral tissue professional wrestler(s). Patient tolerated well. Adequate hemostasis was achieved, and a sterile bandage was applied. TOTAL FILL VOLUME: 100ML Impression: 1. Encounter for postoperative care 2. Malignant neoplasm of lower-inner quadrant of right breast of female, estrogen receptor positive(CMS-HCC) 3. Acquired absence of breast, bilateral 4. S/P breast reconstruction, bilateral Recommendations: patient is doing well post operatively. Drains 1 and 3 removed in office today. Tubing intact. Tissue professional wrestler fill was then performed. Patient tolerated well. Discussed with patientkeeping drain sites covered for 2 days, then okay to leave open to air. Discussed keeping port sitebandages in place for 2 days, then okay to leave open to air. Okay to shower as long as she keeps dr misti martini covered. Okay to sleep how she feels comfortable. Discussed it is okay to use [id number] acetaminophen or ibuprofen for pain after tissue professional wrestler filled. Continue to refrain from anyheavy lifting pushing or pulling. Follow up next week for drain removal And possible tissue professional wrestler filled. She was advised to call the office with any questions or concerns in the interim. - AMEENA Rand 11/18/23 1:15 PM Please note that portions of this note were generated using voice recognition [employer] dictation software. Although every effort was made to ensure the accuracy of this automated chain carrier, some errors in chain carrier may have occurred. AMEENA Kennedy 11/18/23 1316 documented in this encounterTrumbull Regional Medical Center09-11-2024 History of Present illness Narrative* AMEENA Kennedy - 11/11/2023 1:30 PM EDT [facility] [address] Office Jhon Rosado MD, PhD AMEENA Kennedy PA-C Plastic Surgery Progress Note Reason for visit : 2 week post operative appt. History of present illness: Ike Flannery 53 y.o. is here today for a follow up after bilateral skin sparing mastectomies and right axillary node dissection (Dr. He) with immediate bilateral breast reconstruction with placement of tissue expanders and right prophylactic lymphovenous bypass on 10/29/23. She presents to the office today for routine postoperative follow-up. She reports she is doing well. She does have some irritation and discomfort at drain sites. She is also having some muscle spasms in her chest. Bilateral ARTEMIO drains do remain in place. Outputs are approximately 40-60 mL a day for the past 4-5 days. Review of systems: Negative for fever or chills. She denies any surgical site concerns. Physical Examination: Vitals: 11/11/23 1335 BP: 125/81 Pulse: 98 Resp: 16 There is no height or weight on file to calculate BMI. General exam: Alert and oriented x 3, comfortable, non-toxic. S1, S2. Nonlabored breathing. Abdomen soft/non-tender/non-distended. Extremities warm, well perfused. Negative Gretchen's sign. Focused examination : Bilateral breast incisions clean, dry and intact. No erythema or necrosis noted. No fluid collections are palpated. No signs of infection. Bilateral ARTEMIO drains in place, drainingserosanguineous fluid. ARTEMIO drain sites appear benign. Impression: 1. Encounter for postoperative care 2. S/P breast reconstruction, bilateral 3. Malignant neoplasm of lower-inner quadrant of right breast of female, estrogen receptor positive(CMS-HCC) 4. Acquired absence of breast, bilateral Recommendations: Patient is doing well. Discussed with patient that her outputs do remain elevated and we will maintain drains at this time. Discussed the need to be less than 30 total a day for 3 consecutive days. Discussed that if her drains do remain elevated next week we will perform a small fill given she needs postoperative radiation therapy. Small script of Valium sent to pharmacy for muscle spasms. Discussed that she can not take this with any other narcotic medications. Continue to refrain from any heavy lifting pushing or pulling. Okay to shower if she keeps drain sites covered. Okay to sleep how she feels comfortable. Follow up next week for possible drain removal and tissue professional wrestler filled. Advised to call the office any questions or concerns in the interim. - AMEENA Rand 11/11/23 2:27 PM Please note that portions of this note were generated using voice recognition [employer] dictation software. Although every effort was made to ensure the accuracy of this automated chain carrier, some errors in chain carrier may have occurred. AMEENA Kennedy 11/11/23 [address] [facility]09-11-2024 Miscellaneous Notes* Addendum Note - AMEENA Kennedy - 11/11/2023 1:30 PM EDT Addended by: MARISELA CUEVAS on: 11/11/2023 02:38 PM Modules accepted: Orders documented in this [facility]09-11-2024 Note* Addendum Note - AMEENA Kennedy - 11/11/2023 1:30 PM EDTAddended by: MARISELA CUEVAS on: 11/11/2023 02:38 PM Modules accepted: Orders [facility]09-04-20[facility] History of Present illness Narrative* AMEENA Kennedy - 11/04/2023 11:00 AM EDT [facility] [address] Office Jhon Rosado MD, PhD AMEENA Kennedy PA-C Plastic Surgery Progress Note Reason for visit : 1 week post operative appt. History of present illness: Ike Flannery 53 y.o. is here today for a follow up after bilateral skin sparing mastectomies and right axillary node dissection (Dr. He) with immediate bilateral breast reconstruction with placement of tissue expanders and right prophylactic lymphovenous bypass on 10/29/23. She presents to the office today for routine 1 week postoperative appointment. She states that she is doing well. She does have some mild postoperative pain, this is tolerable with pain medications. Reports appetite is decreased. She has been trying to increase her protein intake. She is having normal bowel and bladder function. Bilateral breast and right axillary ARTEMIO drains remain inplace. Outputs remain elevated at approximately 60 mL and greater for the past 3 days. Review of systems: Negative for fever or chills. Denies any surgical site concerns. All other systems negative unless noted in HPI. Physical Examination: Vitals: 11/04/23 1046 BP: 129/83 Pulse: 87 Resp: 14 There is no height or weight on file to calculate BMI. General exam: Alert and oriented x 3, comfortable, non-toxic. S1, S2. Nonlabored breathing. Abdomen soft/non-tender/non-distended. Extremities warm, well perfused. Negative Gretchen's sign. Focused examination : Bilateral breast incisions are clean, dry and intact. No erythema or necrosisnoted. No fluid collections are palpated. Nipple-areolar complexes are surgically absent. BilateralJP drains place, draining serosanguineous fluid. ARTEMIO drain sites appear benign. Right axillary drainsite is benign. Impression: 1. Encounter for postoperative care 2. Malignant neoplasm of lower-inner quadrant of right breast of female, estrogen receptor positive(CMS-HCC) 3. Acquired absence of breast, bilateral 4. S/P breast reconstruction, bilateral Recommendations: Patient continues to do well postoperatively. Discussed with patient that her drain outputs do remain elevated we will maintain drains at this time. Discussed outputs need to be lessthan 30 mL a day for 3 consecutive days prior to removal. Discussed continuing to limit any heavy lifting, pushing or pulling. Discussed that we will tentatively start expanding her tissue expanders at 3 weeks postop and we would like to have her fully expanded before she needs radiation therapy. Discussed deflated contralateral tissue professional wrestler prior to radiation simulation. Encouraged patient tosupplement with protein given she is having a slight decreased appetite. Continue to stay well hydrated. Follow-up in 1 week for possible drain removal. She was advised to call the office any questions orconcerns in the interim. - AMEENA Rand 11/04/23 11:17 AM Please note that portions of this note were generated using voice recognition [employer] dictation software. Although every effort was made to ensure the accuracy of this automated chain carrier, some errors in chain carrier may have occurred. AMEENA Kennedy 11/04/23 1143 documented in this encounterTrumbull Regional Medical Center08-27-2024 NotePatient: Tia Flannery Procedure Information Date/Time: 10/27/23 0730 Procedure: Right heart cath (Right) - pc approved Location: [facility] [facility] [place] / [facility] (Cath) Providers: Clint Bazan MD [...] discussed with attending and fellow. Additional Equipment RequestsAdena [facility]08-23-[facility]24 History of Present illness Narrative* KHLOE Yoder - 10/23/2023 2:12 PM EDT [facility] Social Work Check request submitted x3. [employer] sent correspondence to patient to update her. - KHLOE Yoder 10/23/23 2:12 PM documented in this encounterTr[facility]08-20-2024 History of Present illness Narrative* KHLOE Yoder - 10/20/2023 2:38 PM EDT [facility] [employer] Work Vendor packet submitted.- KHLOE Yoder 10/20/23 2:39 PM documented in this encounterTrumbull [facility] Center08-16-2024 History of Present illness Narrative* Niurka Stockton RN - 10/16/2023 2:38 PM EDTSummary: MagSeed Localization Discharge Instructions 14:35 Met with patient following breast MagSeed localization procedure. Reviewed written instructions and answered related questions. Encouraged to call if any concerns related to the procedure should occur. Provided contact numbers and office hours. Written copy of care instructions provided to patient. Voices understanding of all information reviewed. documented in this encounterTrumbull [facility] Medical Center08-16-2024 History of Present illness Narrative* KHLOE Yoder - 10/16/2023 1:58 PM EDT [facility] Social Work Spoke with patient. Foundation request made. Add change submitted. - KHLOE Yoder 10/16/23 1:59 PM documented in this encounterTrumbull Regional Medical Center08-16-2024 History and physical note* Christy Kimble APRN-ESPERANZA - 10/16/2023 11:00 AM EDT PRE-ADMISSION TESTING HISTORY AND PHYSICAL EXAM DATE: 10/16/23 PCP: AMEENA GARCIA HISTORY OF PRESENT ILLNESS: Ike Flannery, a 53 y.o. White or female, presents to [facility] for a pre-surgical H&P. The patient has been diagnosed with INVASIVE CARCINOMA RIGHT . Patient self-palpated a mass in her right breast [...] which showed there is a persistent partially circumscribed2.9 x 2.3 cm mass with pleomorphic calcifications. Ultrasound shows corresponding 2.7 x 2.5 x 2.5 an gular mass, round in shape with multiple calcifications. Malignancy is suspected. Ultrasound guidedbiopsy was recommended, BI-RADS 5. Right breast ultrasound guided biopsy was performed on 03/26/23, pathology revealed Invasive mammary carcinoma. She did require neoadjuvant chemotherapy and completed on . Patient is going to have radiation after her surgery. Multi gene genetic testing was ordered at that time as well and was negative. She has had a history of benign breast masses. She has had previous breast surgery. Lumpectomy of right breast at age 18. Patient has not had a history of previous radiation to her right breast(s). Unsure of family history as patient is adopted. Anesthesia problems: PONV Latex allergy: denies. Bleeding/ clotting disorders: Patient recently diagnosed with L leg DVT (08/2023)- started on Eliquis, will be bridged with Lovenox for upcoming surgery Recent hospitalizations: denies. PAST MEDICAL HISTORY: Past Medical History: Diagnosis Date Breast cancer (CMS-HCC) 2023 mammary carcinoma Deep vein thrombosis (CMS-HCC) 09/18/2023 Left calf Hypertension Knee pain PONV (postoperative nausea and vomiting) Port-A-Cath in place 05/13/2023 Visual impairment Glasses PAST SURGICAL HISTORY: Past Surgical History: Procedure Laterality Date ARTHROSCOPIC REPAIR ACL Right 2006 ARTHROSCOPIC REPAIR ACL Left 08/26/2021 BREAST BIOPSY Right 2023 mammary carcinoma HYSTERECTOMY MENISCECTOMY Bilateral 2022 PORTACATH PLACEMENT Left left chest TONSILLECTOMY AND ADENOIDECTOMY Age 3 TUMOR REMOVAL back-benign FAMILY HISTORY: Family History Adopted: Yes SOCIAL HISTORY: The patient reports current alcohol use. She reports that she has never smoked. She has never used smokeless tobacco. She reports no history of drug use. ALLERGIES: Allergies Allergen Reactions Meperidine Facial Swelling Adhesive Rash MEDICATIONS: Current Outpatient Medications: albuterol (PROVENTIL,VENTOLIN) 2.5 mg /3 mL (0.083 %) nebulizer solution, Inhale 3 mL (2.5 mg total) by nebulization every 6 (six) hours as needed for wheezing., Disp: 75 mL, Rfl: 1 chlorthalidone (HYGROTON) 25 mg tablet, Take 0.5 tablets (12.5 mg total) by mouth daily., Disp: , Rfl: cyclobenzaprine (FLEXERIL) 10 mg tablet, TAKE ONE TABLET BY MOUTH ONCE DAILY IN THE EVENING, Disp: 30 tablet, Rfl: 11 DULoxetine (CYMBALTA) 30 mg capsule, Take 1 capsule (30 mg total) by mouth once daily at bedtime., Disp: , Rfl: ELIQUIS 5 mg tablet, Take 1 tablet (5 mg total) by mouth in the morning and 1 tablet (5 mg total) before bedtime. Indications: blood clot in a deep vein of the extremities., Disp: , Rfl: fluticasone propionate (FLONASE) 50 mcg/actuation nasal spray, 1 spray in each nostril Nasally Oncea day, Disp: , Rfl: furosemide (LASIX) 20 mg tablet, Take 1 tablet (20 mg total) by mouth daily., Disp: , Rfl: gabapentin (NEURONTIN) 300 mg capsule, TAKE ONE CAPSULE BY MOUTH TWICE A DAY FOR HOT FLASHES, Disp:, Rfl: KLOR-CON 20 mEq packet, Take 1 packet (20 mEq total) by mouth in the morning., Disp: , Rfl: lidocaine-prilocaine (EMLA) cream, Apply 1 Application topically as needed for pain., Disp: , Rfl: lisinopriL (PRINIVIL,ZESTRIL) 20 mg tablet, Take 1 tablet (20 mg total) by mouth in the morning., Disp: , Rfl: magnesium oxide 400 mg magnesium tablet, Take 400 mg by mouth in the morning., Disp: , Rfl: metoprolol succinate XL (TOPROL XL) 100 mg 24 hr tablet, Take 1 tablet (100 mg total) by mouth in the morning., Disp: , Rfl: spironolactone (ALDACTONE) 25 mg tablet, Take 1 tablet (25 mg total) by mouth in the morning., Disp: , Rfl: traZODone (DESYREL) 50 mg tablet, TAKE ONE TABLET BY MOUTH ONCE DAILY AT NIGHT, Disp: 90 tablet, Rfl: 1 capecitabine (XELODA) 500 mg chemo tablet, Take by mouth after surgery (Patient not taking: Reported on 10/16/2023), Disp: , Rfl: dexAMETHasone (DECADRON) 1 mg tablet, TAKE ONE TABLET BY MOUTH TWICE A DAY ON DAYS 3-6 AFTER CHEMOTHERAPY FOR FATIGUE (Patient not taking: Reported on 10/16/2023), Disp: , Rfl: ferrous sulfate 325 (65 FE) mg tablet, Take 1 tablet (325 mg total) by mouth in the morning. (Patient not taking: Reported on 07/30/2023), Disp: 90 tablet, Rfl: 2 predniSONE (DELTASONE) 5 mg tablet, Take 1 tablet (5 mg total) by mouth in the morning. (Patient not taking: Reported on 10/16/2023), Disp: , Rfl: REVIEW OF SYSTEMS: Review of Systems Constitutional: Negative. HENT: Negative. Eyes: Glasses Respiratory: Negative for apnea, shortness of breath and wheezing. Cardiovascular: Negative for chest pain, palpitations and tachycardia. Hypertension, left leg DVT 09/18/2023- on Eliquis Gastrointestinal: Negative. Endocrine: Negative. Genitourinary: Negative. Musculoskeletal: Negative. Skin: Negative. Allergic/Immunologic: Negative. Neurological: Negative. Hematological: Anemia Psychiatric/Behavioral: Negative. VITAL SIGNS: BP 118/76 Pulse 83 Temp 36.6 C (97.9 F) (Temporal) Resp 20 Ht 180.3 cm (5' 11 ) Wt 102.6 kg (226 lb 3.1 oz) SpO2 99% BMI 31.55 kg/m PHYSICAL EXAM: Physical Exam Constitutional: Appearance: Normal appearance. HENT: Head: Normocephalic and atraumatic. Nose: Nose normal. Mouth/Throat: Mouth: Mucous membranes are moist. Pharynx: Oropharynx is clear. Eyes: Extraocular Movements: Extraocular movements intact. Conjunctiva/sclera: Conjunctivae normal. Pupils: Pupils are equal, round, and reactive to light. Cardiovascular: Rate and Rhythm: Normal rate and regular rhythm. Heart sounds: Normal heart sounds. Comments: Port in the left chest with access Pulmonary: Effort: Pulmonary effort is normal. Breath sounds: Normal breath sounds. Abdominal: General: Bowel sounds are normal. Palpations: Abdomen is soft. Musculoskeletal: General: Normal range of motion. Cervical back: Normal range of motion and neck supple. Right lower le+ Edema present. Left lower le+ Edema present. Skin: General: Skin is warm and dry. Neurological: General: No focal deficit present. Mental Status: She is alert and oriented to person, place, and time. RECENT LABS: Lab Results Component Value Date WBC 7.1 01/31/2022 HGB 11.6 (L) 01/31/2022 HCT 34.7 (L) 01/31/2022 PLT 385 01/31/2022 SODIUM 143 01/31/2022 K 3.6 01/31/2022 CL 106 01/31/2022 CO2 29 01/31/2022 CALCIUM 9.3 01/31/2022 ALKPHOS 56 01/31/2022 ALBUMIN 3.9 01/31/2022 GLU 92 01/31/2022 HGBA1C 5.4 01/31/2022 ALT 21 01/31/2022 AST 21 01/31/2022 CREATININE 0.63 01/31/2022 BUN 9 01/31/2022 EGFR >90 01/31/2022 *Please note that labs listed above are the most recent lab values available in [facility] at the time ofthe office visit and additional labs may have been drawn since that time. ASSESSMENT / DIAGNOSIS: INVASIVE CARCINOMA RIGHT PLAN: Ike Flannery is scheduled for Mastectomy Breast Simple Skin Sparing - Right Excision Lymph Node Axillary Dissection - Right Magnetic Seed Localization Excision/Biopsy Mass Breast (Mag Seed Localized Targeted Dissection For Retrieval Of Previously Clipped Lymph Node) - Right Mastectomy Breast Simple Risk Reducing Skin Sparing - Left Exchange Ski Patrol Tissue Breast - Bilateral Skin Plasty Tissue Rearrangement (De Epithelialized Inferior Autoderm Flap 10321) - Bilateral Bypass LymphovenousProphylactic(Psb) - Right with Dr. He and Dr. Rosado. AMEENA Marin 10/16/23 1405 [employer] Work Phone: [phone] History and physical note* AMEENA Marin - 10/16/2023 11:00 AM EDT PRE-ADMISSION TESTING HISTORY AND PHYSICAL EXAM DATE: 10/16/23 PCP: AMEENA GARCIA HISTORY OF PRESENT ILLNESS: Ike Flannery, a 53 y.o. White or female, presents to [facility] for a pre-surgical H&P. The patient has been diagnosed with INVASIVE CARCINOMA RIGHT . Patient self-palpated a mass in her right breast [...] which showed there is a persistent partially circumscribed2.9 x 2.3 cm mass with pleomorphic calcifications. Ultrasound shows corresponding 2.7 x 2.5 x 2.5 an gular mass, round in shape with multiple calcifications. Malignancy is suspected. Ultrasound guidedbiopsy was recommended, BI-RADS 5. Right breast ultrasound guided biopsy was performed on 03/26/23, pathology revealed Invasive mammary carcinoma. She did require neoadjuvant chemotherapy and completed on . Patient is going to have radiation after her surgery. Multi gene genetic testing was ordered at that time as well and was negative. She has had a history of benign breast masses. She has had previous breast surgery. Lumpectomy of right breast at age 18. Patient has not had a history of previous radiation to her right breast(s). Unsure of family history as patient is adopted. Anesthesia problems: PONV Latex allergy: denies. Bleeding/ clotting disorders: Patient recently diagnosed with L leg DVT (08/2023)- started on Eliquis, will be bridged with Lovenox for upcoming surgery Recent hospitalizations: denies. PAST MEDICAL HISTORY: Past Medical History: Diagnosis Date Breast cancer ([facility]) 2023 mammary carcinoma Deep vein thrombosis ([facility]) 09/18/2023 Left calf Hypertension Knee pain PONV (postoperative nausea and vomiting) Port-A-Cath in place 05/13/2023 Visual impairment Glasses PAST SURGICAL HISTORY: Past Surgical History: Procedure Laterality Date ARTHROSCOPIC REPAIR ACL Right 2006 ARTHROSCOPIC REPAIR ACL Left 08/26/2021 BREAST BIOPSY Right 2023 mammary carcinoma HYSTERECTOMY MENISCECTOMY Bilateral 2022 PORTACATH PLACEMENT Left left chest TONSILLECTOMY AND ADENOIDECTOMY Age 3 TUMOR REMOVAL back-benign FAMILY HISTORY: Family History Adopted: Yes SOCIAL HISTORY: The patient reports current alcohol use. She reports that she has never smoked. She has never used smokeless tobacco. She reports no history of drug use. ALLERGIES: Allergies Allergen Reactions Meperidine Facial Swelling Adhesive Rash MEDICATIONS: Current Outpatient Medications: albuterol (PROVENTIL,VENTOLIN) 2.5 mg /3 mL (0.083 %) nebulizer solution, Inhale 3 mL (2.5 mg total) by nebulization every 6 (six) hours as needed for wheezing., Disp: 75 mL, Rfl: 1 chlorthalidone (HYGROTON) 25 mg tablet, Take 0.5 tablets (12.5 mg total) by mouth daily., Disp: , Rfl: cyclobenzaprine (FLEXERIL) 10 mg tablet, TAKE ONE TABLET BY MOUTH ONCE DAILY IN THE EVENING, Disp: 30 tablet, Rfl: 11 DULoxetine (CYMBALTA) 30 mg capsule, Take 1 capsule (30 mg total) by mouth once daily at bedtime., Disp: , Rfl: ELIQUIS 5 mg tablet, Take 1 tablet (5 mg total) by mouth in the morning and 1 tablet (5 mg total) before bedtime. Indications: blood clot in a deep vein of the extremities., Disp: , Rfl: fluticasone propionate (FLONASE) 50 mcg/actuation nasal spray, 1 spray in each nostril Nasally Oncea day, Disp: , Rfl: furosemide (LASIX) 20 mg tablet, Take 1 tablet (20 mg total) by mouth daily., Disp: , Rfl: gabapentin (NEURONTIN) 300 mg capsule, TAKE ONE CAPSULE BY MOUTH TWICE A DAY FOR HOT FLASHES, Disp:, Rfl: KLOR-CON 20 mEq packet, Take 1 packet (20 mEq total) by mouth in the morning., Disp: , Rfl: lidocaine-prilocaine (EMLA) cream, Apply 1 Application topically as needed for pain., Disp: , Rfl: lisinopriL (PRINIVIL,ZESTRIL) 20 mg tablet, Take 1 tablet (20 mg total) by mouth in the morning., Disp: , Rfl: magnesium oxide 400 mg magnesium tablet, Take 400 mg by mouth in the morning., Disp: , Rfl: metoprolol succinate XL (TOPROL XL) 100 mg 24 hr tablet, Take 1 tablet (100 mg total) by mouth in the morning., Disp: , Rfl: spironolactone (ALDACTONE) 25 mg tablet, Take 1 tablet (25 mg total) by mouth in the morning., Disp: , Rfl: traZODone (DESYREL) 50 mg tablet, TAKE ONE TABLET BY MOUTH ONCE DAILY AT NIGHT, Disp: 90 tablet, Rfl: 1 capecitabine (XELODA) 500 mg chemo tablet, Take by mouth after surgery (Patient not taking: Reported on 10/16/2023), Disp: , Rfl: dexAMETHasone (DECADRON) 1 mg tablet, TAKE ONE TABLET BY MOUTH TWICE A DAY ON DAYS 3-6 AFTER CHEMOTHERAPY FOR FATIGUE (Patient not taking: Reported on 10/16/2023), Disp: , Rfl: ferrous sulfate 325 (65 FE) mg tablet, Take 1 tablet (325 mg total) by mouth in the morning. (Patient not taking: Reported on 07/30/2023), Disp: 90 tablet, Rfl: 2 predniSONE (DELTASONE) 5 mg tablet, Take 1 tablet (5 mg total) by mouth in the morning. (Patient not taking: Reported on 10/16/2023), Disp: , Rfl: REVIEW OF SYSTEMS: Review of Systems Constitutional: Negative. HENT: Negative. Eyes: Glasses Respiratory: Negative for apnea, shortness of breath and wheezing. Cardiovascular: Negative for chest pain, palpitations and tachycardia. Hypertension, left leg DVT 09/18/2023- on Eliquis Gastrointestinal: Negative. Endocrine: Negative. Genitourinary: Negative. Musculoskeletal: Negative. Skin: Negative. Allergic/Immunologic: Negative. Neurological: Negative. Hematological: Anemia Psychiatric/Behavioral: Negative. VITAL SIGNS: BP 118/76 Pulse 83 Temp 36.6 C (97.9 F) (Temporal) Resp 20 Ht 180.3 cm (5' 11 ) Wt 102.6 kg (226 lb 3.1 oz) SpO2 99% BMI 31.55 kg/m PHYSICAL EXAM: Physical Exam Constitutional: Appearance: Normal appearance. HENT: Head: Normocephalic and atraumatic. Nose: Nose normal. Mouth/Throat: Mouth: Mucous membranes are moist. Pharynx: Oropharynx is clear. Eyes: Extraocular Movements: Extraocular movements intact. Conjunctiva/sclera: Conjunctivae normal. Pupils: Pupils are equal, round, and reactive to light. Cardiovascular: Rate and Rhythm: Normal rate and regular rhythm. Heart sounds: Normal heart sounds. Comments: Port in the left chest with access Pulmonary: Effort: Pulmonary effort is normal. Breath sounds: Normal breath sounds. Abdominal: General: Bowel sounds are normal. Palpations: Abdomen is soft. Musculoskeletal: General: Normal range of motion. Cervical back: Normal range of motion and neck supple. Right lower le+ Edema present. Left lower le+ Edema present. Skin: General: Skin is warm and dry. Neurological: General: No focal deficit present. Mental Status: She is alert and oriented to person, place, and time. RECENT LABS: Lab Results Component Value Date WBC 7.1 01/31/2022 HGB 11.6 (L) 01/31/2022 HCT 34.7 (L) 01/31/2022 PLT 385 01/31/2022 SODIUM 143 01/31/2022 K 3.6 01/31/2022 CL 106 01/31/2022 CO2 29 01/31/2022 CALCIUM 9.3 01/31/2022 ALKPHOS 56 01/31/2022 ALBUMIN 3.9 01/31/2022 GLU 92 01/31/2022 HGBA1C 5.4 01/31/2022 ALT 21 01/31/2022 AST 21 01/31/2022 CREATININE 0.63 01/31/2022 BUN 9 01/31/2022 EGFR >90 01/31/2022 *Please note that labs listed above are the most recent lab values available in [facility] at the time ofthe office visit and additional labs may have been drawn since that time. ASSESSMENT / DIAGNOSIS: INVASIVE CARCINOMA RIGHT PLAN: Ike Flannery is scheduled for Mastectomy Breast Simple Skin Sparing - Right Excision Lymph Node Axillary Dissection - Right Magnetic Seed Localization Excision/Biopsy Mass Breast (Mag Seed Localized Targeted Dissection For Retrieval Of Previously Clipped Lymph Node) - Right Mastectomy Breast Simple Risk Reducing Skin Sparing - Left Exchange Ski Patrol Tissue Breast - Bilateral Skin Plasty Tissue Rearrangement (De Epithelialized Inferior Autoderm Flap 74872) - Bilateral Bypass LymphovenousProphylactic(Psb) - Right with Dr. He and Dr. Rosado. AMEENA Marin 10/16/23 1405 documented in this encounterOhioHealth Southeastern Medical Center10Six [id number] Instructions* Patient Instructions* Isabell Merrill RN - 10/16/2023 11:00 AM EDT Your surgery/procedure is scheduled at [facility] on 10-28-2023 at 7:30am Arrival Time 5:30am [facility] Address: [address] [place] [address], [address] [place] [address] in the Emergency Center Parking lot. Report to the senior front end web developer in the Emergency/Surgery Registration lobby of the hospital. Please call Pre-Admission Clinic at [phone] if you have any questions prior to surgery. For questions the morning of surgery, please call the Pre-op Department at [phone]. Notify your SURGEON if you develop any illness such as a cold, cough, fever, sore throat, vomiting or are hospitalized between now and your surgery. CONTINUE TO TAKE YOUR MEDICATIONS PRESCRIBED. DO NOT STOP YOUR PRESCRIBED MEDICATIONS UNLESS DIRECTED BY YOUR PRESCRIBING PHYSICIAN Take the following medications the morning of surgery with a sip of water: Metoprolol Succinate andGabapentin Diabetic or weight loss medications: None Take inhalers as prescribed the morning of surgery. . Blood thinners: Medications such as Coumadin, Heparin, Aspirin, Plavix, Eliquis, Pradaxa) Please contact your physician regarding a stop/hold date for these medications. Diabetics: If you take insulin, contact your prescribing doctor for instructions on how to manage this the night before and the morning of surgery. Non-steriodal Anti-Inflammatory Drugs (NSAIDS)- Stop 3 days prior to surgery unless otherwise directed by your surgeon. Vitamins/Herbal Products: You may continue to take your prescribed vitamins such as potassium, iron, vitamin B, vitamin C, or multivitamin unless specifically instructed by your surgeon to stop. STOPtaking all herbal products/teas one week prior to [...] would like to schedule therapy at a [facility] facility, please call [phone] ([phone]). Do not use lotions, creams, powders, perfume, make up, cologne or after-shaves day of surgery. Remove ALL jewelry including wedding rings, body piercings, hair extensions that contain metal, nail yakut, make-up, and contact lens. You may brush your teeth the morning of surgery, but do not swallow the water. Wear your dentures and partial plates to the hospital (no adhesive). Shower the night the before. If applicable, use the CHG (chlorhexidine gluconate) soap or wipes. Please be advised, [facility] has transitioned to a cashless payment system. What should I bring to the hospital? If you received a green plastic bracelet, bring it with you the day of surgery and your nurse will put it on you. Eyeglass or contact lens case If you will be spending the night, please bring personal care items and leave them in the car untilyou are taken to your room after surgery. [...] following some types of surgeries involving the eyes,ears, sinuses and throat. Always follow your doctor's [...] RIGHTS AND RESPONSIBILITIES As a patient at [facility], you have the right to: Receive medical care and be informed of who is taking care of you Be treated with dignity and respect Have a family member/investment representative of choice and your physician notified of your admission Receive information and actively participate in decisions about your care and treatment Refuse care, treatment and services Decide who may provide your support and speak for you Access scientologist and spiritual services Participate in ethical issues [...] of hospital charges and payment methods Patient/patient investment representative responsibilities are to: Provide information about health status to facilitate care, treatment and services Follow the treatment, plan, keep appointments and speak up when you do not understand the plan Respect the rights of other patients and healthcare personnel Follow organizational rules and regulations that support quality care and a safe environment Fulfill financial obligations as promptly as possible Bathing Before Surgery- Patients greater than 2 months of age You can help to lower your chance of infection at the site of your surgery by showering or bathing with a special soap called chlorhexidine gluconate (CHG). Germs live on your skin. This special soapwill help lower the amount of germs so they do not get into your surgery site. Special points to know: Do not use this soap if you know that you are allergic to CHG. Shower or bathe with CHG the night before and the morning of surgery. Do not shave the area of your body where the surgery will be done within 7 days of surgery. The CHG may make your skin a little dry, but do not use lotion. Steps for Bathing: Wash your hair as usual with your normal shampoo. Rinse your hair and body well after you shampoo to get rid all of the shampoo. Wash gently with the CHG from the neck down, but do not scrub the skin to hard. Be sure to wash thearea of your surgery very well. If showering, turn the water off while washing and then turn the water back onto rinse. Do not get CHG in the genital (private) area. Do not get CHG in the eyes, ears, nose or mouth. (If the soap gets into the eyes, flush them immediately with water). Do not wash with regular soap after CHG is used. Pat skin dry with a soft, clean towel. Patient should sleep in freshly laundered night clothes and report for surgery in clean clothes. documented in this encounterTrumbull [facility] Medical Center08-14-2024 History of Present illness Narrative* KHLOE Yoder - 10/14/2023 11:59 PM EDT [facility] Social Work Corresponded regarding foundation assistance. - KHLOE Yoder 10/16/23 10:28 AM documented in this encounterTrumbull Regional Medical Center08-06-2024 MD Terri Alicia MA Are they doing a procedure for her?? Did she have the echocardiogram on 09/10? She will need a follow up lower extremity venous duplex in 6 weeks since they reported a peroneal DVT on the current study, in order to rule out progression. I just uploaded the echo into [employer]. It didn't come to us because Dr. Hope ordered it.[facility]07-30-[facility] History of Present illness Narrative* KHLOE Yoder - 09/29/2023 2:38 PM EDT [facility] Social Work Corresponded with patient regarding foundation assistance. - KHLOE Yoder 09/29/23 2:40 PM documented in this encounterTrumbull Regional Medical Center07-29-2024 Miscellaneous Notes* Telephone Encounter - Ana Ibrahim - 09/28/2023 11:06 AM EDT Can she set up wellness this year * Telephone Encounter - Ana Ibrahim - 09/28/2023 11:06 AM EDT Sent mychart msg * Telephone Encounter - Ana Ibrahim - 09/28/2023 11:06 AM EDT LM on VM * Telephone Encounter - Ana Ibrahim - 09/28/2023 11:06 AM EDT LM on VM documented in this encounterTrumbull Regional Medical Center07-29-2024 Telephone encounter Note* Telephone Encounter - Ana Ibrahim - 09/28/2023 11:06 AM EDT Can she set up wellness this year [facility]07-29-2024 Telephone encounter Note* Telephone Encounter - Anaalfredo Ibrahim - 09/28/2023 11:06 AM EDT Sent mychart msg [facility]07-29-2024 Telephone encounter Note* Telephone Encounter - [facility] Patrice - 09/28/2023 11:06 AM EDT LM on VM [facility]07-29-2024 Telephone encounter Note* Telephone Encounter - Anaalfredo Ibrahim - 09/28/2023 11:06 AM EDT LM on VM [facility]07-01-2024 NoteUT Cardiology - [facility] Allison Flannery is a 52 y.o. year old female patient being seen to establish care. Ref from Dr. Hope for LE edema, despite being on 3 diuretics. She is currently undergoing chemotherapy for breast cancer. She saw [facility] Cardiology in Apr and they ordered baseline echo to be completed prior to chemotherapy. She is scheduled for another echo in 2 weeks. She has previously seen [facility] cardiology in [place] for hypertension. She denies chest pain, SOB, [...] Take 20 mg (more content not included)... [facility]06-20-2024 History of Present illness Narrative* KHLOE Yoder - 08/20/2023 11:59 PM EDT PCI Social Work *late entry* Met with patient per planned appointment. Patients significant other present as well. Model Builder Display explored needs, focusing on financial. Discussed options and resources. Await patient to provide global technical writer with financial statements support request. - KHLOE Yoder 08/27/23 8:54 AM documented in this encounterTr[facility]ull [facility] Center06-[facility] History of Present illness Narrative* Jhon Rosado MD - 08/20/2023 10:00 AM EDT [facility] [address] Office Jhon Rosado MD, PhD Marisela Cuevas, REFLOW OPERATOR-RETURNED CASE INSPECTOR Shereen Smallwood PA-C Plastic Surgery New Patient Consultation Note Reason for visit : Chief Complaint Patient presents with Breast Cancer History of present illness: Ike Flannery 52 y.o. is here today to discuss breast reconstruction. She has been referred by Dr. He. She notes a new right breast cancer diagnosis after feeling lump on self breast exam. This led to a workup of her tumor, and a biopsy was performed, which hadpathology consistent with IDC, TNBC. She has known metastatic disease with known positive lymph node(s). There are plans for postoperative radiation. She has seen Dr. Kelly, whom has plans for bilateral skin sparing mastectomy and axillary node dissection. She did require neoadjuvant chemotherapy. Patient has had genetic testing, which did not indicate she had a deleterious mutation. Prior to her diagnosis, she has been happy with the size and appearance of her breasts. She would like them to be more lifted. She currently wears a size D. Desires D cup size. She has had a history of benign breast masses. She has had previous breast surgery. Lumpectomy of right breast at age 18. Patient has not had a history of previous radiation to her right breast(s). Unsure of family history as patient is adopted. She has children. She did not breastfeed. She does not have any history of heart disease, lung disease or diabetes. She does not have a history of blood clots. She is not on anticoagulation. She has had a previous hysterectomy. She does not use nicotine products. Past Medical History: Past Medical History: Diagnosis Date Hypertension Knee pain Past Surgical History: Past Surgical History: Procedure Laterality Date ARTHROSCOPIC REPAIR ACL Right 2006 ARTHROSCOPIC REPAIR ACL Left 08/26/2021 BREAST BIOPSY HYSTERECTOMY MENISCECTOMY TUMOR REMOVAL back-benign Allergies: Allergies Allergen Reactions Meperidine Adhesive Rash Social History: Social History Socioeconomic History Marital status: Spouse name: Not on file Number of children: Not on file Years of education: Not on file Highest education level: Some college, no degree Occupational History Not on file Tobacco Use Smoking status: Never Smokeless tobacco: Never Vaping Use Vaping status: Never Used Substance and Sexual Activity Alcohol use: Yes Drug use: Never Sexual activity: Not on file Other Topics Concern Not on file Social History Narrative Not on file Social Determinants of Health Financial Resource Strain: Low Risk (02/27/2022) Overall Financial Resource Strain (CARDIA) Difficulty of Paying Living Expenses: Not hard at all Food Insecurity: No Food Insecurity (08/20/2023) Hunger Screening Food Insecurity - Worry: Never True Food Insecurity - Inability: Never True Transportation Needs: No Transportation Needs (02/27/2022) PRAPARE - Transportation Lack of Transportation (Medical): No Lack of Transportation (Non-Medical): No Physical Activity: Sufficiently Active (02/27/2022) Exercise Vital Sign Days of Exercise per Week: 3 days Minutes of Exercise per Session: 60 min Stress: Stress Concern Present (02/27/2022) [employer] - Occupational Stress Questionnaire Feeling of Stress : To some extent Social Connections: Socially Integrated (02/27/2022) Social Connection and Isolation Panel [NHANES] Frequency of Communication with Friends and Family: Twice a week Frequency of Social Gatherings with Friends and Family: Three times a week Attends Confucianism Services: More than 4 times per year Active Member of Clubs or Organizations: Yes Attends Club or Organization Meetings: 1 to 4 times per year Marital Status: Interpersonal Safety: Unknown (05/28/2023) Received from [facility] Fear of Current or Ex-Partner: Not on file Emotionally Abused: Not on file Physically Abused: Not on file Sexually Abused: Not on file Physically or Sexually Abused: Not on file Housing Instability: Not on file Family History: History reviewed. No pertinent family history. Current Medications: Current Outpatient Medications: albuterol (PROVENTIL,VENTOLIN) 2.5 mg /3 mL (0.083 %) nebulizer solution, Inhale 3 mL (2.5 mg total) by nebulization every 6 (six) hours as needed for wheezing., Disp: 75 mL, Rfl: 1 chlorthalidone (HYGROTON) 25 mg tablet, Take 1 tablet (25 mg total) by mouth daily., Disp: , Rfl: cyclobenzaprine (FLEXERIL) 10 mg tablet, TAKE ONE TABLET BY MOUTH ONCE DAILY IN THE EVENING, Disp: 30 tablet, Rfl: 11 fluticasone propionate (FLONASE) 50 mcg/actuation nasal spray, 1 spray in each nostril Nasally Oncea day, Disp: , Rfl: furosemide (LASIX) 20 mg tablet, Take 1 tablet (20 mg total) by mouth daily., Disp: , Rfl: gabapentin (NEURONTIN) 300 mg capsule, TAKE ONE CAPSULE BY MOUTH TWICE A DAY FOR HOT FLASHES, Disp:, Rfl: lisinopriL (PRINIVIL,ZESTRIL) 20 mg tablet, Take 1 tablet (20 mg total) by mouth in the morning., Disp: , Rfl: metoprolol (LOPRESSOR) 5 mg/5 mL injection, as directed, Refills(s) 0, Disp: , Rfl: potassium chloride (K-TAB,KLOR-CON) 10 MEQ CR tablet, Take 1 tablet (10 mEq total) by mouth in the morning., Disp: , Rfl: predniSONE (DELTASONE) 5 mg tablet, Take 1 tablet (5 mg total) by mouth in the morning., Disp: , Rfl: spironolactone-niacinamide 5-4 % gel, as directed, Refills(s) 0, Disp: , Rfl: traZODone (DESYREL) 50 mg tablet, TAKE ONE TABLET BY MOUTH ONCE DAILY AT NIGHT, Disp: 90 tablet, Rfl: 1 carvediloL (COREG) 25 mg tablet, Take 1 tablet (25 mg total) by mouth in the morning and at bedtime. (Patient not taking: Reported on 07/30/2023), Disp: 180 tablet, Rfl: 1 ferrous sulfate 325 (65 FE) mg tablet, Take 1 tablet (325 mg total) by mouth in the morning. (Patient not taking: Reported on 07/30/2023), Disp: 90 tablet, Rfl: 2 lisinopril-hydroCHLOROthiazide (PRINZIDE,ZESTORETIC) 20-12.5 mg per tablet, Take 1 tablet by mouth daily. (Patient not taking: Reported on 08/20/2023), Disp: 90 tablet, Rfl: 1 Review of Systems: Review of Systems Constitutional: Negative. HENT: Negative. Respiratory: Negative. Cardiovascular: Positive for leg swelling (due to chemo.). Gastrointestinal: Negative. Musculoskeletal: Negative. Skin: [place] coloration to right breast since chemo has started. Neurological: Negative. Physical Exam: Vital Signs: Vitals: 08/20/23 1014 BP: 128/81 Pulse: 84 Resp: 18 Weight: 105.3 kg (232 lb 3.2 oz) Height: 180.3 cm (5' 11 ) BMI: Body mass index is 32.39 kg/m . Body habitus overweight. General appearance - alert, well appearing, and in no distress Mental status - alert, oriented to person, place, and time Eyes - sclera anicteric Neck - supple Chest - non-labored breathing Heart - regular rate Abdomen - soft, nontender, nondistended. Abdominal donor site for CONCHITA free flap is 100%. Low transverse incision. Moderate asymmetric pannus, no hernia. Minimal diastasis. Extremities - no lower leg edema; no ulcers. Thighs as donor site for free flap are adequate. Vascular- peripheral pulses intact. Focused examination: Breasts: Large in size bilaterally, left slightly larger than right. Ptosis grade 2 bilaterally, similar on both sides. Contour normal bilaterally. Nipple areolar complex is normal sized. Skin exam shows skin to be intact. and shows stretch yoo on bilateral breast.. Periareolar scar present to right breast. Parenchymal palpation normal bilaterally. Nipple sensation is intact to light touch. Axillary fullness is mild. Her breast mass is palpable central breast. [place] discoloration to right breast with out induration. Right breast is more contracted up. Breast tissue is Intertriginous rash in inframammary folds absent. Shoulder grooves are present. MEASUREMENTS: Left Right Base width: 14.5 cm Sternal Notch to Nipple: 26 cm 23 cm IMF to Nipple: 6.5 cm 5 cm Nipple to Nipple 23 cm Nipple-areolar diameter 4 cm 4 cm Female lightout examiner present: yes. Impression : 1. Malignant neoplasm of lower-inner quadrant of right breast of female, estrogen receptor positive(CMS-HCC) Plan: We had a lengthy discussion today about available options in breast reconstruction. We discussed the different modalities of reconstruction, including with implants, with autologous tissue, andcombined. We also covered timing of reconstruction, including delayed, immediate, and immediate staged. We discussed the most common operations performed for breast reconstruction, with emphasis on those that may be indicated in her case. She understands biggest risks of surgery include bleeding, infection, damage to surrounding structures, nipple loss (if nipple sparing mastectomy performed), hematoma, seroma, aesthetic dissatisfaction, need for further surgery, implant failure , capsular contracture, asymmetry, delayed healing, altered sensation, and postoperative pain. We encouraged her toallocate plenty of time to reflect on the matter before making a final informed decision about breast reconstruction. We answered all of her questions. She will return to clinic at least one more time prior to surgery, so we can address any questions she might have, review her reconstruction choices, and discuss the details of the devised surgical plan. We will plan for placement bilateral tissue expanders and possible right prophylactic lymphovenous bypass at the time of her surgery with Dr. He. From a plastic surgery standpoint, she is a skin sparing mastectomy candidate (altamirano pattern incision). At this point we plan for her final breast reconstruction to be autologous based breast reconstruction. We will see her back once surgery is scheduled to answer any questions and review surgical plan andpostoperative course. She was encouraged to call with any questions or concerns. Please note that portions of this note were generated using voice recognition Engrade dictation software. Although every effort was made to ensure the accuracy of this automated chain carrier, some errors in chain carrier may have occurred. IJHON MD, PHD personally performed the face to face evaluation on this patient. I discussed with the patient and confirmed the accuracy and completeness of the aforementioned history,and I personally performed the clinical examination of the patient. I have established and discussed the course of treatment with the patient. Jhon Rosado MD, PhD [facility] Total time spent was 50 minutes: Preparing to see the patient (e.g., review of tests) Obtaining and/or reviewing separately obtained history Performing a medically appropriate examination and/or evaluation Counseling and educating the patient/family/caregiver Ordering medications, tests, or procedures Referring and communicating with other health inspector health care facilities (not separately reported) Documenting clinical information in the electronic or other health record Independently interpreting results (not separately reported) and communicating results to the patient/family/caregiver Care coordination (not separately reported) documented in this encounterTr[facility] History of Present illness Narrative* KHLOE Yoder - 08/06/2023 3:20 PM EDT PCI Social Work Patient returned writers phone call. Introduced self and explained role. Explored needs/concerns. Patient will be having surgery in the coming months after she completes her chemotherapy. Has concerns about finances as she will have time off of work and does not have short term disability. Model Builder Display/SW offered to meet with patient when she at [facility] for her next appointment on 08/19 to explore resources/assistance further. Patient agreed to this. Support provided. - KHLOE Yoder 08/06/23 3:24 PM documented in this encounterTr[facility]ull [facility]06-[facility]-2024 History of Present illness Narrative* KHLOE Yoder - 08/03/2023 1:36 PM EDT PCI Social Work Referral- Model Builder Display followed up, placed call to patient. No answer. Model Builder Display left voicemail and call back number. - KHLOE Yoder 08/03/23 1:38 PM documented in this encounterTrumbull [facility] Center05-30-2024 History of Present illness Narrative* Christy He MD - 07/30/2023 3:00 PM EDT Images from the original note were not included. 07/30/2023 DIAGNOSIS: Ike Flannery is a 52 y.o. female who presents to the Breast Surgery Clinic for evaluation and mid chemo discussion regarding her recently diagnosed right breast cancer, IDC grade 3, ER weakly+, [place] -, Her 2 Negative (IHC score 0). HISTORY OF PRESENT ILLNESS 04/28/23 : Ike Flannery is a 52 y.o. [...] testing was ordered at that time as well and was negative. Patient presents for evaluation and discussion of surgical management options for her newly diagnosed breast findings. She denies weight loss, bone pain, vision changes, headaches, and abdominal pain. History of multiple prior right breast excisional biopsies. 07/30/2023: Right breast ultrasound with favorable response. Starting cycle 5 of AC and keytruda next week. Has not seen radiation oncology. GYNECOLOGICAL HISTORY & RISK ASSESSMENT: First day [...] genetic testing? Yes Do you have Ashkenazi Scientology ancestry? No HEALTH HISTORY: The patient's past medical history, medications, and allergies have been reviewed in [facility]. PAST MEDICAL HISTORY: Past Medical History: [...] for wheezing., Disp: 75 mL, Rfl: 1 cyclobenzaprine (FLEXERIL) 10 mg tablet, TAKE ONE TABLET BY MOUTH ONCE DAILY IN THE EVENING, Disp: 30 tablet, Rfl: 11 fluticasone propionate (FLONASE) 50 mcg/actuation nasal spray, [...] AT NIGHT, Disp: 90 tablet, Rfl: 1 carvediloL (COREG) 25 mg tablet, Take 1 tablet (25 mg total) by mouth in the morning and at bedtime. (Patient not taking: Reported on 07/30/2023), Disp: 180 tablet, Rfl: 1 ferrous sulfate 325 (65 FE) mg tablet, Take 1 tablet (325 mg total) by mouth in the morning. (Patient not taking: Reported on 07/30/2023), Disp: 90 tablet, Rfl: 2 ALLERGIES: Allergies Allergen Reactions Meperidine Adhesive Rash FAMILY HISTORY History reviewed. No pertinent family history. SOCIAL HISTORY Social History Tobacco Use Smoking [...] lump PHYSICAL EXAMINATION PHYSICAL EXAM: Vitals: BP 110/68 (BP Site: Right Arm, BP Postition: Sitting) Ht 180.3 cm (5' 10.98 ) Wt 104.9 kg (231 lb 3.2 oz) BMI 32.26 kg/m Weight: Weight: 104.9 kg (231 lb 3.2 oz) General Appearance: Ike is a well-appearing female who is in no acute distress. Head: Normocephalic, without obvious abnormality, atraumatic Neck: There is no appreciable lymphadenopathy in the cervical, supraclavicular, and infraclavicularlymph node basins. Breast: Examined in upright and supine position. Right breast: Slightly distorted lower pole contour improved with inverted nipple and large mass occupying majority of the lower pole - improved, slightly flattened nipple projection, no nipple discharge, no skin lesions, no surgical scars Right axilla: Firm mobile palpable lymphadenopathy remains but improved Left breast: normal contour, no masses, normal [...] with the patient: ASSESSMENT AND PLAN: Encounter Diagnosis Name Primary? Malignant neoplasm of lower-inner quadrant of right breast of female, estrogen receptor positive (CMS-HCC) Yes DIAGNOSIS: Ike Flannery is a 52 y.o. female with grade 3 right breast invasive carcinoma, ER weakly positive/[place] negative, Her-2 negative, currently undergoing neoadjuvant chemotherapy with moderate response. PLAN OF CARE: 1. Surgery. In the [...] of local recurrence between these two treatments. Given the extent of disease in the breast on presentation, as well as the persistent distortion of her nipple projection, she is not a breast conservation candidate and will require mastectomy for treatment of her breast cancer. 2. Axillary Staging. She had a clinical the palpable node on presentation that has failed to normalize during chemotherapy thus far. In addition, she was clinically N 3 due to the presence of an abnormal internal mammarynode. Taking these factors as well as tumor biology, axillary burden on imaging, and age into account, I believe she will be best served with axillary lymph node dissection at the time of her definitive surgery. This was in keeping with current ASBrS and NCCN guidelines. That decision will be finalized after post treatment imaging. If ALND is necessary, the risk and benefits of the procedure, including but not limited to, lymphedema, paresthesias, and decreased range of motion at the shoulder, were explained to the patient at length in clinic today. She voiced understanding and wants to proceed. She has been referred to reconstructive surgery to discuss lymphovenous bypass. 3. Systemic Chemotherapy. Neoadjuvant chemotherapy per Dr. Hope. 4. Radiation. The necessity of adjuvant radiation therapy was also discussed with the patient today. A referral has been placed and I will discuss facilitating the appointment. 5. Endocrine Therapy. Receptors will be repeated post NACT. Endocrine tx based on final pathology, at the discretion of Dr. Hope. 6. Genetics. Genetic testing was negative with [employer] expanded panel on diagnosis. 7. Pre-operative work up: referral to Pre-Anesthesia [...] patient, the following plan has been made: Will start cycle 5 AC and Keytruda next week under care of Dr. Hope - case discussed with him Social work for insurance help Rad onc - Dr. Hope will facilitate Plan for MRI for axillary and internal mammary response towards end of July - will finalize surgical plan at that time. Will require right mastectomy, likely with axillary lymph node dissection. I would request Mag seed-localization of the previously clipped node and methylene blue will be used formapping. Goal to OR around October 29 ADDENUDUM 05/21/2023: Cancer Staging Malignant neoplasm of lower-inner quadrant of right breast of female, estrogen receptor positive ([facility]-HCC) Staging form: Breast, AJCC 8th Edition - Clinical: Stage IIIC (cT2, cN3, cM0, G3, ER+, [place]-, HER2-) - Signed by Christy He MD on 05/21/2023 N3 with palpable lymphadenopathy at presentation may fall outside of criteria to attempt targeted dissection. Will need post chemo imaging to evaluate response in the IM and axilla. She voiced understanding of her treatment plan and was encouraged to contact the [facility]with any questions or concerns. Total time spent was 60 minutes: Preparing to see the patient (e.g., review of tests) Obtaining and/or reviewing separately obtained history Performing a medically appropriate examination and/or evaluation Counseling and educating the patient/family/caregiver Ordering medications, tests, or procedures Referring and communicating with other health inspector health care facilities (not separately reported) Documenting clinical information in the electronic or other health record Independently interpreting results (not separately reported) and communicating results to the patient/family/caregiver Please note that portions of this note were generated using voice recognition Engrade dictation software. Although every effort was made to ensure the accuracy of this automated chain carrier, some errors in chain carrier may have occurred. Christy He MD [facility] [phone] documented in this encounterOhioHealth Southeastern Medical CenterEpigenomics AG [facility] [id number] Miscellaneous Notes* Tumor Conference Note - AMEENA [...] guided, right breast 4 o'clock, core biopsy ([facility]: re-read TT): 11mm, invasive ductal carcinoma with areas of necrosis grade 3 score=8. LVI negative. ER12-15% [place]- HER2/Yohan by IHC negative 0. Patient Presentation: patient palpated lump - - > abnormality seen on imaging; right axillary lymphadenopathy on CBE Cancer Staging Malignant neoplasm of lower-inner quadrant of right breast of female, estrogen receptor positive ([facility]-HCC) Staging form: Breast, AJCC 8th Edition - Clinical: Stage IIIC (cT2, cN3, cM0, G3, ER+, [place]-, HER2-) - Signed by Christy He MD [...] regarding trials, Please call Clinical Research at [phone] National Guidelines discussed (NCCN, AUA, NCI, etc): [...] can be directed to the Cancer Registry: [phone] documented in this encounterOhioHealth Southeastern Medical Center10Six [id number] Progress note* Tumor Conference Note - AMEENA [...] guided, right breast 4 o'clock, core biopsy ([facility]: re-read TT): 11mm, invasive ductal carcinoma with areas of necrosis grade 3 score=8. LVI negative. ER12-15% [place]- HER2/Yohan by IHC negative 0. Patient Presentation: patient palpated lump - - > abnormality seen on imaging; right axillary lymphadenopathy on CBE Cancer Staging Malignant neoplasm of lower-inner quadrant of right breast of female, estrogen receptor positive (CMS-HCC) Staging form: Breast, AJCC 8th Edition - Clinical: Stage IIIC (cT2, cN3, cM0, G3, ER+, [place]-, HER2-) - Signed by Christy He MD [...] regarding trials, Please call Clinical Research at [phone] National Guidelines discussed (NCCN, AUA, NCI, etc): [...] can be directed to the Cancer Registry: [phone] [employer] Work Phone: [phone]) [phone] Miscellaneous Notes* Telephone Encounter - Niurka Stockton [...] Voices understanding. Support offered. documented in this [facility]Tr[facility]03-[facility] Telephone encounter Note* Telephone Encounter - Niurka [...] at biopsy site. Voices understanding. Support offered. [facility]03-12-2024 Miscellaneous Notes* Telephone Encounter - Ike Irvin RN - 05/12/2023 7:51 AM EDT Notified Emiliana at Dr He office faxing over reports. documented in this encounterTrumbull [facility] Center03-12-2024 Telephone encounter Note* Telephone Encounter - Ike Irvin RN - 05/12/2023 7:51 AM EDT Notified Emiliana at Dr He office faxing over reports. [facility]03-[facility] History of Present illness Narrative* [...] of all information reviewed. documented in this encounterTrumbull [facility] Center02-27-2024 History of Present illness Narrative* Christy He MD - 04/28/2023 8:00 AM EST Images from the original note were not included. 04/28/23 DIAGNOSIS: Ike Flannery is a 52 y.o. female who presents to the Breast Surgery Clinic for evaluation and recommendations regarding her recently diagnosed right breast cancer, IDC grade 3, ER weakly +, [place] -, Her 2 Negative (IHC score 0). [...] genetic testing? Yes Do you have Ashkenazi Scientology ancestry? No HEALTH HISTORY: The patient's past medical history, medications, and allergies have been reviewed in [facility]. PAST MEDICAL HISTORY: Past Medical History: [...] 3 right breast invasive carcinoma, ER weakly positive/[place] negative, Her-2 negative. Cancer Staging No matching [...] radiation is an integral component of treatment. Shewill be evaluated by our radiation oncologists for [...] Need right ax biopsy Referral placed to [facility] rad onc RV 3 months, PRS [...] procedures Referring and communicating with other health inspector health care facilities (not separately reported) Documenting clinical information in the electronic or other health record Independently interpreting results (not separately reported) and communicating results to the patient/family/caregiver Please note that portions of this note were generated using voice recognition M*Lyfe[employer] dictation software. Although every effort was made to ensure the accuracy of this automated chain carrier, some errors in chain carrier may have occurred. Christy He MD [facility] Breast Surgery [phone] [facility] History of Present illness Narrative* Catie Ybarraumang, CERTIFIED ORTHOTIST - 04/02/2023 11:30 AM EST Reason for Appointment: Patient ID: Ike Flannery is a 52 y.o. female who presents for abnormal test results (Discuss the results of her abnormal mammogram results done @ [facility]) Patient presents today for Consult appointment. [...] nursing note reviewed. Exam conducted with a lightout examiner present. Vitals: Estimated body mass index is [...] diagnostic right breast mammogram done at [facility] on 03/20/23. Results were highly suggestive of malignancy and radiology recommended that patient obtain an ultrasound guided breast biopsy. Patient had ultrasound guided right breast biopsy obtained at [facility] on 03/26/23, biopsy was sent to pathology at [facility]. Reviewed results with patient and discussed [...] if patient does not hear from medical program specialist by the time she receives letter to contact Specialist to schedule. Advised patient on VM to call office with any questions. --Catie Johnson LPN documented in this encounterDeaconess Incarnate Word Health [id number] Hospital Discharge instructions Patient Education 07/14/2022 14:20:40 [...] numbers. This can be done either in [place]uvian ([place].S.) or metric measurements. Note that charts and online BMI calculators are available to help you find your BMI quickly and easily without having to do these calculations yourself. To calculate your BMI in [place]uvian ([place].S[place] measurements: 1.Measure your weight in pounds [...] Centers for Disease Control and Prevention: www.cdc.gov [place] Heart Association: www.heart.org National Heart, Lung, and Blood [place]: www.nhlbi.nih.gov Summary Body mass index (BMI) is a number that is calculated from a person's weight and height. BMI may help estimate how much of a person's weight is composed of fat. BMI can help identify thosewho may be at higher risk for certain medical problems. BMI can be measured using Peruvian measurements or metric measurements. BMI charts are used to identify whether you are underweight, normal weight, overweight, or obese. This information is not intended to replace advice given to you by your health care provider. Make sure you discuss any questions you have with your health care provider. Document Revised: 11/09/2019 Document Reviewed: 09/16/2019 [employer] Patient Education 2022 [employer]. 07/14/2022 14:20:38 Upper Respiratory Infection, Adult Upper [...] medicines to help relieve symptoms, such as: Tzqo-wzu-iqbhjsv cold medicines. Cough suppressants. Coughing is a [...] and other clear broths. General instructions Take lzir-qni-dgryzfi and prescription medicines only as told by [...] and water are not available, use hand assistant farm operations manager. Avoid touching your mouth, face, eyes, or [...] provider. Document Revised: 09/18/2021 Document Reviewed: 09/18/2021 [employer]igh[employer] Patient Education 2022 [employer]. Follow Up Care 07/14/2022 13:35:56 With:BRENNON JAMESON, BOBBY Sifuentes Address:Unknown When: Unknown [facility] 09-13-2022 History general Narrative - Reported* Type Description Date Medical History heart dysrythmia Medical History Night sweats Medical History Insomnia, unspecified type Medical History hypertension Surgical History hysterectomy dec 2003 Surgical History acl reconstruction right knee n ov 2004 Surgical History leg dec 2014 Hospitalization History see above [facility] 09-12-2022 Evaluation note* Encounter Date Diagnosis [...] weeks for the cough to go away [facility] Other [id number] Note [id number]06-28-2022 [id number] 08-26-2021 [facility] SURGERY Clinical Discharge Summary PERSON INFORMATION Name IKE FLANNERY Age 50 Years 1970 Sex FEMALE Language Peruvian PCP RANDY CALLE Marital Status [facility] Service Ambulatory Surgery Acct# Arrival 08/26/2021 11:01:00 Visit Reason SURGERY- LEFT KNEE SCOPE Acuity LOS 003 04:51 Address: [place] [address] Comment: PROVIDER INFORMATION VITALS INFORMATION Vital Sign Triage Latest Temp Oral Temp Temporal Temp Intravascular Temp Axillary Temp Rectal 02 Sat 100 % 97 % Respiratory Rate Peripheral Pulse Rate Apical Heart Rate Blood Pressure / 90 mmHg / 103 mmHg Comment: MEDICAL INFORMATION Allergy Info: Adhesive Bandage; Demerol Prescriptions Given: acetaminophen-hydrocodone (!-[place] 5 mg-325 mg oral tablet) 1 tab(s) [...] Oral every day. potassium chloride (Potassium Chloride (Ubf-Muwr-Vht 10) 10 mEq oral tablet, extended release) 1 tab(s) Oral every day. traZODone (traZODone 50 mg oral tablet) 1 tab(s) Oral once a day (at bedtime). Medication List: Medications to Continue That Have Not Changed Other Medications acetaminophen-hydrocodone (!-[place] 5 mg-325 mg oral tablet) 1 tab(s) Oral Every 6 hours as needed as needed for pain. carvedilol (carvedilol 12.5 mg oral tablet) 1 tab(s) Oral 2 times a day. cyclobenzaprine (cyclobenzaprine 10 mg oral tablet) 1 tab(s) Oral At bedtime as needed for spasm. hydroCHLOROthiazide (hydroCHLOROthiazide 25 mg oral tablet) 1 tab(s) Oral every day. potassium chloride (Potassium Chloride (Elu-Alhy-Oty 10) 10 mEq oral tablet, extended release) 1 tab(s) Oral every day. traZODone (traZODone 50 mg oral tablet) 1 tab(s) Oral once a day (at bedtime). Medications to Continue That Have Not Changed Other Medications acetaminophen-hydrocodone (!-[place] 5 mg-325 mg oral tablet) 1 tab(s) Oral Every 6 hours as needed as needed for pain. carvedilol (carvedilol 12.5 mg oral tablet) 1 tab(s) Oral 2 times a day. cyclobenzaprine (cyclobenzaprine 10 mg oral tablet) 1 tab(s) Oral At bedtime as needed for spasm. hydroCHLOROthiazide (hydroCHLOROthiazide 25 mg oral tablet) 1 tab(s) Oral every day. potassium chloride (Potassium Chloride (Bkk-Rfat-Mak 10) 10 mEq oral tablet, extended release) 1 tab(s) Oral every day. traZODone (traZODone 50 mg oral tablet) 1 tab(s) Oral once a day (at bedtime). Medications to Continue That Have Not Changed Other Medications acetaminophen-hydrocodone (!-[place] 5 mg-325 mg oral tablet) 1 tab(s) Oral Every 6 hours as needed as needed for pain. carvedilol (carvedilol 12.5 mg oral tablet) 1 tab(s) Oral 2 times a day. cyclobenzaprine (cyclobenzaprine 10 mg oral tablet) 1 tab(s) Oral At bedtime as needed for spasm. hydroCHLOROthiazide (hydroCHLOROthiazide 25 mg oral tablet) 1 tab(s) Oral every day. potassium chloride (Potassium Chloride (Utw-Oqit-Mby 10) 10 mEq oral tablet, extended release) [...] INFORMATION PATIENT EDUCATION INFORMATION Instructions: Knee Arthroscopy ([facility]) Follow up: DIAGNOSIS Internal derangement of left knee Comment: PHYS DOC [facility]06-16-2022 [facility] SURGERY Clinical Discharge Summary PERSON INFORMATION Name IKE FLANNERY Age 50 Years 1970 Sex FEMALE Language Peruvian PCP RANDY CALLE Marital Status [facility] Service Ambulatory Surgery Acct# Arrival Visit Reason SURGERY - LEFT KNEE SCOPE Acuity LOS 010 03:19 Address: [address] [facility] [address] Comment: PROVIDER INFORMATION VITALS INFORMATION Vital Sign [...] Oral every day. potassium chloride (Potassium Chloride (Sna-Unrb-Zsp 10) 10 mEq oral tablet, extended release) 1 tab(s) Oral every day. traZODone (traZODone 50 mg oral tablet) 1 tab(s) Oral once a day (at bedtime). Medication List: Medications That Were Updated - Follow Below Instructions Other Medications Updated: potassium chloride (Potassium Chloride (Szy-Ssuk-Ctf 10) 10 mEq oral tablet, extended release) [...] Other Medications Updated: potassium chloride (Potassium Chloride (Agd-Xayb-Kvm 10) 10 mEq oral tablet, extended release) [...] Other Medications Updated: potassium chloride (Potassium Chloride (Xuk-Gepn-Lcc 10) 10 mEq oral tablet, extended release) [...] Follow up: With: Address: When: MYESHA VINSON [address] [place], [place] [id number] Business (1) 09/03/2021 9:15 AM With: Address: When: [facility] [place] [address] [facility] (1) Type Location Start [facility] Lab Collection ([facility]) LAB 08/21/2021 4:00 PM 08/21/2021 4:10 PM Confirmed Surgery ([facility]) [facility] Main OR 08/26/2021 1:00 PM 08/26/2021 1:30 PM Confirmed DIAGNOSIS Comment: AGUSTIN ROQUE [facility]11-24-2021 Note [id number]11-23-2021 [id number] 01-21-2021 [facility] SURGERY Clinical Discharge Summary PERSON INFORMATION Name IKE FLANNERY Age 50 Years 1970 Sex FEMALE Language Peruvian PCP RANDY CALLE Marital Status Med Service Ambulatory Surgery Acct# Arrival 01/21/2021 06:05:01 Visit Reason SURGERY - RIGHT KNEE ARTHROSCOPY Acuity LOS 032 23:00 Address: [address] [place] [id number] Comment: PROVIDER INFORMATION VITALS INFORMATION Vital Sign [...] INFORMATION Instructions: Reny- [facility] Follow up: With: Address: When: MYESHA VINSON [address] [place] [address], [facility] [address] [place] [address] Business (1) 01/30/2021 11:00 AM With: Address: When: RANDY HALLMAGALYS [facility] [place] [address] [facility] (1) DIAGNOSIS Internal derangement of right knee; Tear of meniscus of right knee Comment: AGUSTIN ROQUE [facility]11-19-2021 NoteSpoke to pt on phone regarding upcoming procedure. pt aware to be here at 6am, NPO after midnight, and need for ride after procedure. pt verbalizes understanding. [Electronically Signed on: 01/18/2021 11:03 EST] Jen Khoury RN [Verified on: 01/18/2021 11:03 EST] Jen Khoury [facility] No data available for this section [facility] Evaluation + Plan note Future Appointments Appointment Date:04/10/2023 03:20:00 PM Scheduled Provider:Sandrita WILLETT MD Location:[facility] Appointment Type: Established [address] [facility] note[facility] assessment information available [facility] Work Phone: evaluation note* Diagnosis Mammogram abnormal Abnormal mammogram, unspecified Invasive ductal carcinoma of breast, right (CMS/HCC) documented in this encounter [facility] HealthcareEvaluation note* Diagnosis Onset Date Resolution Status Breast cancer, right acute [facility] Work Phone: Evaluation note* Diagnosis Onset Date Resolution Status Breast cancer, right acute Breast cancer, right acute [facility] Work Phone: evaluation note* Diagnosis Onset Date Resolution Status Breast cancer, right acute Breast cancer, right acute Breast cancer, right acute [facility] Work Phone: Evaluation note* Diagnosis Retinal tear of right eye- Primary Vitreous hemorrhage of right eye (CMS/HCC) Vitreous hemorrhage documented in this encounter [facility] HealthcareEvaluation note* Diagnosis Adverse effect of doxycycline, initial encounter- Primary documented in this encounter [facility] HealthcareEvaluation note* Diagnosis Anaphylaxis, subsequent encounter- Primary documented in this encounter [facility] HealthcareEvaluation note* Diagnosis Encounter to discuss procedure documented in this encounter [facility] HealthcareEvaluation note* Diagnosis Pre-op examination H/O malignant neoplasm of breast documented in this encounter [facility] HealthcareEvaluation note* Diagnosis Encounter for postoperative care- Primary S/P breast reconstruction, bilateral Mycobacterium abscessus infection Breast wound, left, sequela [facility] Diagnosis Sensorineural hearing loss (SNHL) of both ears- Primary documented in this encounter [facility] HealthcareEvaluation note* Diagnosis Encounter for postoperative care- Primary Seroma of breast S/P breast reconstruction, bilateral Mycobacterium abscessus infection Breast wound, left, sequela [facility] Diagnosis Malignant neoplasm of lower-inner quadrant of right breast of female, estrogen receptor positive (CMS-HCC)- Primary Pelvic mass in female [facility] Diagnosis Malignant neoplasm of lower-inner quadrant of right breast of female, estrogen receptor positive (CMS-HCC)- Primary [facility] Diagnosis Malignant neoplasm of lower-inner quadrant of right breast of female, estrogen receptor positive (CMS-HCC) [facility]* Diagnosis Malignant neoplasm of lower-inner quadrant of right breast of female, estrogen receptor positive (CMS-HCC)- Primary Mass of lower inner quadrant of right breast Malignant neoplasm of lower-inner quadrant of right breast of female, estrogen receptor positive (CMS-HCC) [facility]* Diagnosis 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 documented [facility]* Diagnosis Encounter for postoperative care- Primary Malignant neoplasm of lower-inner quadrant of right breast of female, estrogen receptor positive (CMS-HCC) Acquired absence of breast, bilateral S/P breast reconstruction, bilateral [facility]* Diagnosis 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 [facility]* Diagnosis MIRNA (acute kidney injury) [...] site after procedure [facility]* Diagnosis Encounter for postoperative care- Primary S/P breast reconstruction, bilateral Malignant neoplasm of lower-inner quadrant of right breast of female, estrogen receptor positive (CMS-HCC) Acquired absence of breast, bilateral [facility]* Diagnosis Encounter for postoperative care- Primary Acquired absence of breast, bilateral S/P breast reconstruction, bilateral Infection of breast implant, subsequent encounter [facility]* Diagnosis Malignant neoplasm of lower-inner quadrant of right breast of female, estrogen receptor positive (CMS-HCC)- Primary [facility]* Diagnosis Encounter for postoperative care- Primary Malignant neoplasm of lower-inner quadrant of right breast of female, estrogen receptor positive (CMS-HCC) Acquired absence of breast, bilateral S/P breast reconstruction, bilateral [facility]* Diagnosis Encounter for postoperative care- Primary Acquired absence of breast, bilateral S/P breast reconstruction, bilateral [facility]* Diagnosis Encounter for postoperative care- Primary Acquired absence of breast, bilateral [facility]* Diagnosis Infection of deep incisional surgical site after procedure, subsequent encounter- Primary Malignant neoplasm of lower-inner quadrant of right breast of female, estrogen receptor positive (CMS-HCC) [facility]* Diagnosis Encounter for postoperative care- Primary Acquired absence of breast, bilateral S/P breast reconstruction, bilateral Infection of breast implant, subsequent encounter [facility]* Diagnosis Cellulitis of left breast- Primary S/P breast reconstruction, bilateral [facility]* Diagnosis Encounter for postoperative care- Primary Seroma of breast S/P breast reconstruction, bilateral Breast wound, left, sequela documented [facility]* Diagnosis Postoperative follow-up Follow-up examination, following unspecified surgery [facility] Diagnosis Mycobacterium abscessus infection- Primary S/P breast reconstruction, bilateral Malignant neoplasm of lower-inner quadrant of right breast of female, estrogen receptor positive (CMS-HCC) documented [facility] encounter [facility]* Diagnosis Postoperative visit- Primary Mycobacterium abscessus infection S/P breast reconstruction, bilateral Malignant neoplasm of lower-inner quadrant of right breast of female, estrogen receptor positive ([facility]-HCC) documented in this encounter [facility] Narrative* The patient [...] medication regimen. She denies medication side effects. [facility] [address] DO Work Phone: Hospital Discharge instructions No data available for this section [facility] Dis[facility] instructionsAmbulatory Orders* RISE Order Location: [facility] Work Phone: InstructionsNot on filedocumented in [...] note No data available for this section [facility] Progress note Author Quincy Colbert [facility] December 29, 2023 11:28am Note Date/Time December 29, 2023 1 1:28am [facility] [place] [address] Cancer Center Note Signed Patient: Ike Flannery MR#: [id number] : 1970 Acct:[id number] Age/Sex: 53 / F Type: REG AMB [...] the right breast. ER negative (weakly positive) [place] negative HER2 negative. She received neoadjuvant chemotherapy [...] 3. LVSI negative. ER 12 to 15% [place] negative HER2 negative by IHC. 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 ER weakly positive [place] negative HER2 negative. April 17, 2023 PET [...] 2023 patient's case was presented at the [facility] tumor board. Recommendations were for PET staging [...] bilateral skin sparing mastectomies with prepectoral tissue professional wrestler placement. Left breast shows diffuse fibrocystic change [...] cellulitis with an infected seroma. Left tissue professional wrestler removed. She has been on ertapenem and [...] recently saw her plastic surgeon and tissue professional wrestler on right has been filled. Intake Intake Visit Reasons: Follow Up Prior to CT-SIM Allergies meperidine Allergy (Unknown, Unverified 11/11/21 18:32) Unknown Reaction, anaphylaxis [facility] Medical History Medical History (Updated 09/30/23 @ [...] air Breast: Exam now shows left tissue professional wrestler surgically absent. Port has been accessed for IV antibiotics. Right tissue professional wrestler quite full exam shows skin to be tense with surgical incisions well-healed MSK: Demonstrates good range of motion of the right shoulder with external rotation. Results - [facility] (Rad Onc) LAB RESULTS No Data to Display Dictated By: Quincy Colbert MD DD/ 27 Signed By: <Electronically signed by Quincy Colbert MD> 12/29/23 0006 [facility] Work Phone: [facility] ([facility] Consultation (Routine) - Pending Review Specialty Diagnoses / Procedures Referred By Contac t Referred To Contact Behavioral Health / Oncology Diagnoses Malignant neoplasm of lower-inner quadrant of right breast of female, estrogen receptor positive (CMS-HCC) Christy He MD [address] [facility] [address] [place] [address] [facility] Med Onc [address] [facility] [address] [place] [address] Referral ID Status Reason Start Date Expiration Date Visits Requested Visits Authorized [id number] Pending Review Specialty Services Required 07/30/2023 07/29/2024 1 1 * Consultation (Routine) - Pending Review Specialty Diagnoses / Procedures Referred By Contgeorgia t Referred To Contact Radiation Oncology Diagnoses Malignant neoplasm of lower-inner quadrant of right breast of female, estrogen receptor positive (CMS-HCC) Christy He MD [address] [address] Dany Diop MD [address] [facility] [place] [address] Referral ID Status Reason Start Date Expiration Date Visits Requested Visits Authorized [id number] Pending Review Specialty Services Required 07/30/2023 07/29/2024 1 1 * Diagnostic Imaging (Routine) - Pending Review Specialty Diagnoses / Procedures Referred By Contac t Referred To Contact Radiology Diagnoses Malignant neoplasm of lower-inner quadrant of right breast of female, estrogen receptor positive (CMS-HCC) Procedures MR bilateral breast with and without contrast with CAD Christy He MD [address] [address] Referral ID Status Reason Start Date Expiration Date V isits Requested Visits Authorized [id number] Pending Review 07/30/2023 07/29/2024 1 1 * Consultation (Routine) - Pending Review Specialty Diagnoses / Procedures Referred By Contact Referred To Contact Plastic & Reconstructive Surgery Diagnoses Malignant neoplasm of lower-inner quadrant of right breast of female, estrogen receptor positive (CMS-HCC) [place] [address] [place] [address] [address] [place] [address] 2 [facility] [address] [place] [address] [address] [place] [address] Referral ID Status Reason Start Date Expiration Date Visits Requested Visits Authorized [id number] Pending Review Specialty Services Required 07/30/2023 07/29/2024 1 1 [facility] for referral (narrative)* Consultation (Routine) - Pending Review Specialty Diagnoses / Procedures Referred By Contac t Referred To Contact Radiation Oncology Diagnoses Malignant neoplasm of lower-inner quadrant of right breast of female, estrogen receptor positive (CMS-HCC) Christy He MD [address] [place] [id number] Dany Diop MD [address] [place] [address] Referral ID Status Reason Start Date Expiration Date Visits Requested Visits Authorized [id number] Pending Review Specialty Services Required 04/28/2023 04/27/2024 1 1 * Diagnostic Imaging (Emergency) - Pending Review Specialty Diagnoses / Procedures Referred By Contac t Referred To Contact Radiology Diagnoses Malignant neoplasm of lower-inner quadrant of right breast of female, estrogen receptor positive (CMS-HCC) Procedures MR bilateral breast with and without contrast with CAD Christy He MD [address] [facility] [address] [place] [address] Referral ID Status Reason Start Date Expiration Date V isits Requested Visits Authorized [id number] Pending Review 04/28/2023 04/27/2024 1 1 [facility] Consultation (Urgent) - Pending Review Specialty Diagnoses / Procedures Referred By Contac t Referred To Contact Infectious Disease Diagnoses Acid fast bacillus Gino Munguia APRN-CNP [address] [facility] [address] [address] Mathew Serrato, DO [address] [address] Referral ID Status Reason Start Date Expiration Date Visits Requested Visits Authorized [id number] Pending Review Specialty Services Required 12/03/2023 12/02/2024 1 1 [facility] Consultation (Urgent) - Pending Review Specialty Diagnoses / Procedures Referred By Contac t Referred To Contact Infectious Disease Diagnoses 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 Gino Munguia APRN-CNP [address] [facility] [address] [address] Herman Lui, DO [address] [place] [address] Referral ID Status Reason Start Date Expiration Date Visits Requested Visits Authorized [id number] Pending Review Specialty Services Required 12/08/2023 12/07/2024 1 1 [facility] Summary Purpose Family History Unknown Family Member [...] history: Mother, Father(V49.89, Z78.9) Status:Active Advance Directives Advance Directive Response Recorded Date/ Time Advance Directives No December 10, 2017 10:40am Advance Directive Response Recorded Date/ Time Advance Directives No December 10, 2017 11:40am Date Activated Date Inactivated Comments 12/02/2023 11:16 PM 12/09/2023 6:06 PM Date Activated Date Inactivated Comments 10/29/2023 6:33 AM 10/29/2023 2:40 PM Date Activated Date Inactivated Comments 10/29/2023 6:33 AM 10/29/2023 2:40 PM Date Activated Date Inactivated Comments 12/02/2023 11:16 PM Date Activated Date Inactivated Comments 10/29/2023 6:33 AM 10/29/2023 2:40 PM Date Activated Date Inactivated Comments 12/02/2023 11:16 PM 12/09/2023 6:06 PM Chief Complaint * Patient in office for bp check due to hypertension/edema. Patient states edema has resolved. Tolerating the med changes well. Patient bp reviewed per r benny rn. * V.O per Dr. Shanon Tyler MD / Radha Zapata RN increase chlorthalidone [...] zapata rn. * V.O per Dr. Shanon Tyler [...] Reason for Visit Chief Complaint Admit Date Right Breast Cancer February 01, 2024 8 :25am Right Breast Cancer February 08, 2024 8 :18am Referred by Dr. Colbert February 10 024 2:21pm 1 Month Follow Up, Right Breast Cancer J anuary 2024 2:42pm Unknown April 07, 2024 9 :54am Follow Up, Right Breast April 26, 025 2:57pm Reason for Visit Admit Date Mycobacterium abscessus infection Decemb er 2023 2:21pm Breast cancer, right March 14, 2024 2:42pm Breast cancer, right April 26, 2024 2:57pm Chief Complaint Admit Date Amb Documentation January 13, 2024 3:48pm Right Breast Cancer January 14, 2024 11:58am Right Breast Cancer January 19, 2024 8:21am Right Breast Cancer February 01, 2024 8 :25am Right Breast Cancer February 08, 2024 8 :18am Right Breast Cancer February 10, 2024 8:00am Referred by Dr. Colbert February 10 2 024 2:21pm 1 Month Follow Up, Right Breast Cancer J anuary 2024 2:42pm Unknown April 07, 2024 9 :54am Reason for Visit Admit Date Mycobacterium abscessus infection Decemb er 2023 2:21pm Breast cancer, right March 14, 2024 2:42pm Chief Complaint Admit Date Follow Up Prior [...] 8:00am Referred by Dr. Colbert February 10, 2 2:21pm 1 Month Follow Up, Right Breast Cancer J anuary 2024 2:42pm Reason for Visit Admit Date Breast cancer, right December 29, 2023 10:50am Mycobacterium abscessus infection Decemb er 2023 2:21pm Breast cancer, right March [...] Procedures Discharge Follow-Up Amy Jack MD [address], [facility] [address] [place] [address] Referral ID Status Reason Start Date Expiration Date V isits Requested Visits Authorized [id number] Pending Review 12/09/2023 12/08/2024 1 1 Referral ID Status Reason Start Date Expiration Date V isits Requested Visits Authorized [id number] Pending Review 12/09/2023 12/08/2024 1 1 Specialty Diagnoses / Procedures Referred By Jose olmedo Referred To Contact Diagnoses Infection of deep incisional surgical site after procedure, initial encounter Infection of deep incisional surgical site after procedure, subsequent encounter Procedures Follow-up with primary care provider Amy Jack MD [address], [facility] [address] [place] [address] Referral ID Status Reason Start Date Expiration Date V isits Requested Visits Authorized [id number] Pending Review 12/09/2023 12/08/2024 1 1 Specialty Diagnoses / Procedures Referred By Contac t Referred To Contact Procedures Adult diet Amy Jack MD [address] [place] [address] [place] [address] Referral ID Status Reason Start Date Expiration Date V isits Requested Visits Authorized [id number] Pending Review 12/09/2023 12/08/2024 1 1 Additional Source Comments INFORMATION SOURCE (unrecogn ized section and content) DATE CREATED AUTHOR 07/28/2021 [facility] Specialist DATE CREATED AUTHOR AUTHOR'S ORGANIZ ATION 09/22/2021 [facility] DATE CREATED AUTHOR AUTHOR'S ORGANIZ ATION 12/01/2021 [facility] DATE CREATED AUTHOR AUTHOR'S ORGANIZ ATION 01/04/2022 [facility] DATE CREATED AUTHOR AUTHOR'S ORGANIZ ATION 09/30/2022 [facility] DATE CREATED AUTHOR AUTHOR'S ORGANIZ ATION 10/01/2022 [facility] DATE CREATED AUTHOR AUTHOR'S ORGANIZ ATION 10/17/2022 [facility] DATE CREATED AUTHOR AUTHOR'S ORGANIZ ATION 04/13/2023 [facility] DATE CREATED AUTHOR AUTHOR'S ORGANIZ ATION 03/03/2024 [facility] DATE CREATED AUTHOR AUTHOR'S ORGANIZ ATION 04/15/2024 [facility] DATE CREATED AUTHOR AUTHOR'S ORGANIZ ATION 04/21/2024 [facility] DATE CREATED AUTHOR AUTHOR'S ORGANIZ ATION 04/23/2024 [facility] d[facility] Specialists [facility] DATE CREATED AUTHOR AUTHOR'S ORGANIZ ATION 04/28/2024 [facility] DATE CREATED AUTHOR AUTHOR'S ORGANIZ ATION 04/29/2024 [facility] DATE CREATED AUTHOR AUTHOR'S ORGANIZ ATION 04/30/2024 [facility] REASON FOR VISIT (unrecogniz ed section and content) Reason Comments abnormal test results Discuss the result s of her abnormal mammogram results done @ [facility] Reason Comments Spots and/or Floaters Flashes, Light Reason Comments new patient Pt states she is all ergic to several antibiotics. Reason Comments Discuss Procedure Pt present today to discuss an ovary removal. Reason Onset Date Comments Post-op Problem 02/23/2024 Reason Onset Date Comments critical lab 03/02/2024 Reason Comments Post-op Pt here for post op follow up. Reason Comments Post-op Reason Comments New Patient Reason Comments Follow-up Mid-chemo 3 mon foll ow up Reason Comments Breast Cancer Specialty Diagnoses / Procedures Referred By Contact Referred To Contact Plastic & Reconstructive Surgery Diagnoses Malignant neoplasm of lower-inner quadrant of right breast of female, estrogen receptor positive ([facility]) [place] [address] [place] [phone] [facility] [address] Referral ID Status Reason Start Date Expiration Date Visits Requested Visits Authorized [id number] Pending Review Specialty Services Required 07/30/2023 07/29/2024 1 1 Reason Comments Med Refill Reason Comments Consult Newly dx Specialty Diagnoses / Procedures Referred By Jose olmedo Referred To Contact Breast Surgery Diagnoses Mass of lower inner quadrant of right breast Richie Hanna, REFLOW OPERATOR-RETURNED CASE INSPECTOR [address] [place] [address] Christy He MD [address] [place] [phone] Referral ID Status Reason Start Date Expiration Date V isits Requested Visits Authorized [id number] Pending Review 03/23/2023 03/22/2024 1 1 Reason Onset Date Comments Medication Reaction 11/28/2023 Reason Onset Date Comments Transition Of Care [...] tonight Specialty Diagnoses / Procedures Referred By Contac t Referred To Contact Diagnoses MIRNA (acute kidney injury) ([facility]) Nimo Meza MD [address] [place] [address] Referral ID Status Reason Start Date Expiration Date Visits Re quested Visits Authorized [id number] 1 1 Reason Onset Date Comments Transition Of Care 12/11/2023 Reason Comments Post-op Reason Comments Post-op Visit Patient Care team informatio n (unrecognized section and content) Team Status: Active Member Role Status Dates Randy Calle DO Primary Care Provider Active Team Status: Active Member Role Status Dates [...] St art: February 08, 2024 Team Status: Inactive Member Role Status [...] March 14, 2024 End: March 14, 2024 Team Status: Inactive Member Role Status Dates Evan Thompson DO Attending Provider Active Start : April 07, 2024 End: April 07, 2024 Team Status: Inactive Member Role Status Dates Quincy Colbert MD Attending Provider Active Start: April 26, 2024 End: April 26, 2024 Randy Calle DO Primary Care Provider Active Start: April 26, 2024 End: April 26, 2024 Aarti Hope MD Referring Provider Active St art: April 26, 2024 Team Status: Inactive Member Role Status [...] Provider Active Start: October 01, 2023 Aarti Hoep MD Referring Provider Active St art: October 01, 2023 Team Status: Inactive Member Role Status Dates Randy Furlong , DO Primary Care Provider Active Start: March 26, 2023 End: March 26, 2023 GUY Khan POLYSOMNOGRAPHY TECH-C Attending Provider Active Start: March 26, 2023 End: March 26, 2023 Civil Project Engineer Relationship Specialty Start Date End Date Randy Calle MD [address] [place] [address] PCP - General Family Medicine 04/02/23 Civil Project Engineer Relationship Specialty Start Date End Date Randy Calle MD [address] [place] [address] PCP - General Family Medicine 04/02/23 Civil Project Engineer Relationship Specialty Start Date End Date Randy Calle MD [address] [place] [address] PCP - General Family Medicine 04/02/23 Civil Project Engineer Relationship Specialty Start Date End Date Randy Calle MD [address] [place] [address] PCP - General Family Medicine 04/02/23 Civil Project Engineer Relationship Specialty Start Date End Date Randy Calle MD [address] [place] [address] PCP - General Family Medicine 04/02/23 Civil Project Engineer Relationship Specialty Start Date End Date Randy Calle MD [address] [place] [address] PCP - General Family Medicine 04/02/23 Civil Project Engineer Relationship Specialty Start Date End Date Randy Calle MD [address] [place] [address] PCP - General Family Medicine 04/02/23 Civil Project Engineer Relationship Specialty Start Date End Date Randy Calle MD [address] [place] [address] PCP - General Family Medicine 04/02/23 Civil Project Engineer Relationship Specialty Start Date End Date Kevin Hannamayte Thomas, REFLOW OPERATOR-RETURNED CASE INSPECTOR [address] [place] [address] PCP - General 11/28/16 Civil Project Engineer Relationship Specialty Start Date End Date Richie Hanna, REFLOW OPERATOR-RETURNED CASE INSPECTOR [address] [place] [address] PCP - General 11/28/16 Civil Project Engineer Relationship Specialty Start Date End Date Richie Hanna, REFLOW OPERATOR-RETURNED CASE INSPECTOR [address] [place] [address] PCP - General 11/28/16 Civil Project Engineer Relationship Specialty Start Date End Date Randy Calle MD [address] [place] [address] PCP - General Family Medicine 04/02/23 Team [...] January 14, 2024 Quincy Colbert MD Attending [facility] er, Other Provider Active Start: January 14, 2024 Aarti Hope MD Referring Provider Active St art: January 14, 2024 Team Status: Active Member Role Status Dates Randy Calle DO Primary Care Provider Active Start: January 19, 2024 Quincy Colbert MD Attending [facility] er, Other Provider Active Start: January 19, 2024 Aarti Hope MD Referring Provider Active St art: January 19, 2024 Team Status: Active Member Role Status Dates Randy Calle DO Primary Care Provider Active Start: February 10, 2024 Quincy Colbert MD Attending Provider Active Start: February 10, 2024 Aarti Hope MD Referring Provider Active St art: February 10, 2024 Civil Project Engineer Relationship Specialty Start Date End Date Richie Hanna REFLOW OPERATOR-RETURNED CASE INSPECTOR [address] [place] [address] PCP - General 11/28/16 Civil Project Engineer Relationship Specialty Start Date End Date Richie Hanna REFLOW OPERATOR-RETURNED CASE INSPECTOR [address] [place] [address] PCP - General 11/28/16 Civil Project Engineer Relationship Specialty Start Date End Date Richie Hanna REFLOW OPERATOR-RETURNED CASE INSPECTOR [address] [place] [address] PCP - General 11/28/16 Civil Project Engineer Relationship Specialty Start Date End Date Richie Hanna REFLOW OPERATOR-RETURNED CASE INSPECTOR [address] [place] [address] PCP - General 11/28/16 Civil Project Engineer Relationship Specialty Start Date End Date Richie Hanna REFLOW OPERATOR-RETURNED CASE INSPECTOR [address] [place] [address] PCP - General 11/28/16 Civil Project Engineer Relationship Specialty Start Date End Date Richie Hanna REFLOW OPERATOR-RETURNED CASE INSPECTOR [address] [place] [address] PCP - General 11/28/16 Civil Project Engineer Relationship Specialty Start Date End Date Richie Hanna REFLOW OPERATOR-RETURNED CASE INSPECTOR [address] [place] [address] PCP - General 11/28/16 Civil Project Engineer Relationship Specialty Start Date End Date Richie Hanna REFLOW OPERATOR-RETURNED CASE INSPECTOR [address] [place] [address] PCP - General 11/28/16 Civil Project Engineer Relationship Specialty Start Date End Date Richie Hanna REFLOW OPERATOR-RETURNED CASE INSPECTOR [address] [place] [address] PCP - General 11/28/16 Civil Project Engineer Relationship Specialty Start Date End Date Richie Hanna REFLOW OPERATOR-RETURNED CASE INSPECTOR [address] [place] [address] PCP - General 11/28/16 Civil Project Engineer Relationship Specialty Start Date End Date Richie Hanna REFLOW OPERATOR-RETURNED CASE INSPECTOR [address] [place] [address] PCP - General 11/28/16 Civil Project Engineer Relationship Specialty Start Date End Date Richie Hanna REFLOW OPERATOR-RETURNED CASE INSPECTOR [address] [place] [address] PCP - General 11/28/16 Civil Project Engineer Relationship Specialty Start Date End Date Richie Hanna REFLOW OPERATOR-RETURNED CASE INSPECTOR [address] [place] [address] PCP - General 11/28/16 Civil Project Engineer Relationship Specialty Start Date End Date Richie Hanna, REFLOW OPERATOR-RETURNED CASE INSPECTOR [address] [place] [address] PCP - General 11/28/16 Civil Project Engineer Relationship Specialty Start Date End Date Richie Hanna REFLOW OPERATOR-RETURNED CASE INSPECTOR [address] [place] [address] PCP - General 11/28/16 Civil Project Engineer Relationship Specialty Start Date End Date Richie Hanna, REFLOW OPERATOR-RETURNED CASE INSPECTOR [address] [place] [address] PCP - General 11/28/16 Civil Project Engineer Relationship Specialty Start Date End Date Richie Hanna, REFLOW OPERATOR-RETURNED CASE INSPECTOR [address] [place] [address] PCP - General 11/28/16 Civil Project Engineer Relationship Specialty Start Date End Date Richie Hanna, REFLOW OPERATOR-RETURNED CASE INSPECTOR [address] [place] [address] PCP - General 11/28/16 Civil Project Engineer Relationship Specialty Start Date End Date Richie Hanna, REFLOW OPERATOR-RETURNED CASE INSPECTOR [address] [place] [address] PCP - General 11/28/16 Civil Project Engineer Relationship Specialty Start Date End Date [facility] [address] [place] [address] [facility] General 11/28/16 Civil Project Engineer Relationship Specialty Start Date End Date Richie Hanna [facility] [address] [place] [address] [facility] General 11/28/16 Civil Project Engineer Relationship Specialty Start Date End Date Richie Hanna [facility] [address] [place] [address] [facility] General 11/28/16 Civil Project Engineer Relationship Specialty Start Date End Date Richie Hanna [facility] [address] [place] [address] [facility] 11/28/16 Civil Project Engineer Relationship Specialty Start Date End Date Richie Hanna [facility] [address] [place] [address] [facility] 11/28/16 Civil Project Engineer Relationship Specialty Start Date End Date Randy Calle MD [address] [place] [address] PCP General Family Medicine 04/02/23 Goals (unrecognized section and content) Goals may be documented in a n alternate section Scheduled Active and Recently Administ ered Medications (unrecognized section and content) Medication Order 12/07/2023 12/08/2023 12/09/2023 apixaban (ELIQUIS) tablet 5 mg 5 mg, oral, 2 times daily, First dose on Sintia 12/03/23 at 0045, Indication: Acute VTE Treatment, Indications: deep venous thrombosis 0741 (Given - Provider: Alisha Richardson RN)2138 (Given - Provider: Aliza Benito RN) 926 (Given - Provider: Claudia Masterson LPN)2054 (Given - Provider: Aliza Benito RN) 09 (Given - Provider: Kahlil Gregorio RN) ciprofloxacin [...] Thu12/03/23 at 1200, 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) 0743 (Given - Provider: Alisha Richardson RN)9 (Given - Provider: Aliza Benito RN) 927 (Given - Provider: Claudia Masterson LPN)2054 (Given - Provider: Aliza Benito RN) 917 (Given - Provider: Kahlil Gregorio RN) cyanocobalamin tablet 1,000 mcg 1,000 mcg, oral, Daily, First dose on Thu12/06/23 at 0900 0742 (Given - Provider: Alisha Richardson RN) 927 (Given - Provider: Claudia Masterson LPN) 916 (Given - Provider: Kahlil Gregorio RN) doxycycline [...] is REQUIRED to use this drug at [facility], [facility] and [facility] per [facility]-approved policy # MM 1.15: Yes 1004 [...] RN) 1124 (New Bag - Provider: Kahlil Gregorio, OC)1154 (Stop Bag - Provider: Kahlil Gregorio RN) [...] RN) 0928 (Given - Provider: Claudia Masterson LPN)205 (Given - Provider: Aliza Benito RN) 09 (Given - Provider: Kahlil Gregorio, OC) methylPREDNISolone sod suc(PF) (Solu-MEDROL) injection 125 mg (COMPLETED) 125 mg, intravenous, Once, On 10/8/24 at 0930, For 1 dose, May alter [...] 0917 (Given - Provider: Kahlil Gregorio RN) potassium chloride (KLOR-CON M 20) CR tablet 20 mEq 20 mEq, oral, Daily, First dose on Thu12/06/23 at 0900, Hold for potassium more than 4.5 Do not crush or chew. 0738 (Given - Provider: Alisha Richardson RN) 0927 (Given - Provider: Claudia Mastesron LPN) 0917 (Given - Provider: Kahlil Gregorio RN) sodium chloride 0.9 % flush 3 mL 3 mL, intravenous, Every 12 hours scheduled, First dose on Thu12/02/23 at 2320 0744 (Given - Provider: Alisha Richardson RN)2308 (Given - Provider: Aliza Benito RN) 09 (Given - Provider: Claudia Masterson LPN)2056 (Given - Provider: Aliza Benito RN) 0900 [...] is REQUIRED to use this drug at [facility], [facility] and [facility] per [facility]-approved policy # MM 1.15: Yes, Specify: [...] (New Bag - Provider: Aliza Benito RN) 034 (Paused - Provider: Claudia Masterson LPN)034 (Paused - Provider: Claudia Masterson LPN)0345 (Restarted - Provider: Claudia Masterson LPN)0403 (Paused - Provider: Claduia Masterson LPN)0407 (Restarted - Provider: Claudia Masterson [...] [email or web address]\Orders\ Respiratory Care Guidelines\CPG Bronchodilator 2020.pdf swicrvk-yodxqjsakumyx-km ffeine (EXCEDRIN MIGRAINE) 250-250-65 mg per tablet [...] PRN, itching, Starting on 12/07/23 at 0911, Look-alike/sound-alike medication - verify indication [...] pain - pain scale 7-10, Starting on Sintia 12/03/23 at 0041, Look-alike/sound-alike [...] 0617 (See Alternative - Provider: Aliza Benito RN)1627 (Given - Provider: Claudia Masterson LPN) potassium [...] RN) 0617 (Given - Provider: Aliza Benito RN)1627 (See Alternative - Provider: Claudia Masterson LPN) [...] is REQUIRED to use this drug at [facility], [facility] and [facility] per [facility]-approved policy # MM 1.15: Yes, Specify: [...] is REQUIRED to use this drug at [facility], [facility] and [facility] per [facility]-approved policy # MM 1.15: Yes, Specify: [...] BE BASED ON THE PRIMARY CLINICAL RECORDS. [facility]. provides no warranty or guarantee of the accuracy or completeness of information in this document.
== END 2024-04-29 05:01 | disposition home or self-care (01) ==
LOC: CARD 05-02 11:29
PROVIDERS: PCP Nurse Practitioner Family
DX: Z51.81 Encounter for therapeutic drug level monitoring (principal)
CPT/HCPCS: 93005

== ENCOUNTER 2024-04-29 08:46 | Outpatient (OUT) | payer OTHER, SELFPAY ==
--- NOTE | 2024-04-29 08:51 | CT_ITS ---
The [address] [address] Patient Name: IKE JONES MRN: [id number] date: 1970 Sex: F Assigned Patient Location: CT Current Patient Location: CARD Accession/Order Number: [id number] Exam Date: 04/29/2024 12:21 Report Date: 04/29/2024 12:54 At the request of: AARTI NUNEZ MD Procedure: CT chest w con CT CHEST, ABDOMEN AND PELVIS WITH CONTRAST CLINICAL DATA: Follow-up in patient with history of right breast cancer. COMPARISON: PET/CT 10/26/2023 Spiral images were obtained through the chest, abdomen and pelvis following 100 mL Omnipaque 300. Images of the chest were reviewed using both narrow and wide window settings. This CT exam was performed using one or more following dose reduction techniques: Automated exposure control, adjustment of the mA and/or kV according to patient size, or use of iterative reconstruction technique. The heart is within normal limits for size. No pericardial effusion is present. No aortic aneurysm or dissection is seen. There are a few small nonpathologic mediastinal lymph nodes. There is a left-sided Uqonwd-m-Lzlp catheter. Patient has had interval bilateral mastectomy. 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 On the left, there is a large skin wound as well as subcutaneous infiltration, air and minimal fluid. Clinical correlation will be needed since there is only limited information regarding surgery. There are multiple hemostasis clips and stranding at the right axilla. No enlarged axillary lymph nodes are seen. Mild patchy parenchymal changes are present within the right upper lobe. Given location, this could be related to prior radiation therapy. There are some tiny scattered nodular densities measuring up to 5 mm in size at the medial superior segment of the right lower lobe. There is a calcified right upper lobe granuloma. No pleural effusion or pneumothorax is seen. S-shaped scoliotic curvature and endplate spurring are seen at the spine. There is a tiny hypodensity within the left hepatic lobe which might be a cyst. There is also a hypodensity within the right hepatic lobe measuring approximately 1.6 cm in size which is indeterminate. The CT images on the comparison PET exam are not diagnostic. The gallbladder is contracted. No obvious gallstones are noted. The spleen and pancreas show no acute findings. There is a tiny 1 cm left adrenal nodule which was suggested on the prior and was not hypermetabolic. It may be an adenoma. The renal nephrograms are symmetric. There are tiny left renal cysts. The abdominal aorta is normal caliber. There are a few small abdominal lymph nodes. No ascites is seen. The small bowel loops are not distended. There is stool within the colon. There is fluid within the stomach. There is thoracolumbar levoscoliotic curvature as well as degenerative changes at the spine. There is bilateral L5 spondylolysis with mild lumbosacral spondylolisthesis. Images through the pelvis show normal caliber small bowel loops. There is mild distal colonic stool. No prominent diverticular disease is seen. There is no appendiceal inflammation. The urinary bladder shows no abnormalities for the degree of distention. There are benign-appearing inguinal lymph nodes with fatty deb. No acute osseous abnormalities are seen. CT/CT chest w con IMPRESSION: POSTOPERATIVE CHANGES INVOLVING BOTH BREASTS, DESCRIBED. CLINICAL CORRELATION WILL BE NEEDED GIVEN THE LIMITED HISTORY. MILD PARENCHYMAL CHANGES INVOLVING THE RIGHT UPPER LOBE THAT MAY RELATE TO PREVIOUS RADIATION THERAPY. TINY PULMONARY NODULES, TOO SMALL TO FURTHER CHARACTERIZE. NO PATHOLOGIC ADENOPATHY. NO BOWEL OR URINARY TRACT OBSTRUCTION. NO OTHER ACUTE FINDINGS. Indeterminant right hepatic lesion. Patient has other abdominal imaging, correlation may be helpful. Impression dictated by: Seeam Martin M.D.04/29/2024 12:54 PM Dictation Location: [place] [address] Electronically authenticated by: [id number] Y Date: 04/29/2024 12:54
--- NOTE | 2024-04-29 08:51 | CT_ITS ---
The [address] [address] Patient Name: IKE JONES MRN: [id number] date: 1970 Sex: F Assigned Patient Location: CT Current Patient Location: CARD Accession/Order Number: [id number] Exam Date: 04/29/2024 12:21 Report Date: 04/29/2024 12:54 At the request of: AARTI NUNEZ MD Procedure: CT chest w con CT CHEST, ABDOMEN AND PELVIS WITH CONTRAST CLINICAL DATA: Follow-up in patient with history of right breast cancer. COMPARISON: PET/CT 10/26/2023 Spiral images were obtained through the chest, abdomen and pelvis following 100 mL Omnipaque 300. Images of the chest were reviewed using both narrow and wide window settings. This CT exam was performed using one or more following dose reduction techniques: Automated exposure control, adjustment of the mA and/or kV according to patient size, or use of iterative reconstruction technique. The heart is within normal limits for size. No pericardial effusion is present. No aortic aneurysm or dissection is seen. There are a few small nonpathologic mediastinal lymph nodes. There is a left-sided Srycvx-l-Wlpc catheter. Patient has had interval bilateral mastectomy. 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 On the left, there is a large skin wound as well as subcutaneous infiltration, air and minimal fluid. Clinical correlation will be needed since there is only limited information regarding surgery. There are multiple hemostasis clips and stranding at the right axilla. No enlarged axillary lymph nodes are seen. Mild patchy parenchymal changes are present within the right upper lobe. Given location, this could be related to prior radiation therapy. There are some tiny scattered nodular densities measuring up to 5 mm in size at the medial superior segment of the right lower lobe. There is a calcified right upper lobe granuloma. No pleural effusion or pneumothorax is seen. S-shaped scoliotic curvature and endplate spurring are seen at the spine. There is a tiny hypodensity within the left hepatic lobe which might be a cyst. There is also a hypodensity within the right hepatic lobe measuring approximately 1.6 cm in size which is indeterminate. The CT images on the comparison PET exam are not diagnostic. The gallbladder is contracted. No obvious gallstones are noted. The spleen and pancreas show no acute findings. There is a tiny 1 cm left adrenal nodule which was suggested on the prior and was not hypermetabolic. It may be an adenoma. The renal nephrograms are symmetric. There are tiny left renal cysts. The abdominal aorta is normal caliber. There are a few small abdominal lymph nodes. No ascites is seen. The small bowel loops are not distended. There is stool within the colon. There is fluid within the stomach. There is thoracolumbar levoscoliotic curvature as well as degenerative changes at the spine. There is bilateral L5 spondylolysis with mild lumbosacral spondylolisthesis. Images through the pelvis show normal caliber small bowel loops. There is mild distal colonic stool. No prominent diverticular disease is seen. There is no appendiceal inflammation. The urinary bladder shows no abnormalities for the degree of distention. There are benign-appearing inguinal lymph nodes with fatty deb. No acute osseous abnormalities are seen. CT/CT abdomen pelvis w con IMPRESSION: POSTOPERATIVE CHANGES INVOLVING BOTH BREASTS, DESCRIBED. CLINICAL CORRELATION WILL BE NEEDED GIVEN THE LIMITED HISTORY. MILD PARENCHYMAL CHANGES INVOLVING THE RIGHT UPPER LOBE THAT MAY RELATE TO PREVIOUS RADIATION THERAPY. TINY PULMONARY NODULES, TOO SMALL TO FURTHER CHARACTERIZE. NO PATHOLOGIC ADENOPATHY. NO BOWEL OR URINARY TRACT OBSTRUCTION. NO OTHER ACUTE FINDINGS. Indeterminant right hepatic lesion. Patient has other abdominal imaging, correlation may be helpful. Impression dictated by: Seema Martin M.D.04/29/2024 12:54 PM Dictation Location: [place] [address] Electronically authenticated by: [id number] Y Date: 04/29/2024 12:54
[2024-04-29] MEDS: HEPARIN SODIUM (PORCINE) PF LOCK FLUSH 500 UNIT/5 ML SYRINGE IV (09:40)
== END 2024-04-29 08:47 | disposition home or self-care (01) ==
LOC: CT 08:47
PROVIDERS: Visit Provider Internal Medicine Hematology & Oncology
DX: Z51.81 Encounter for therapeutic drug level monitoring (principal); C50.311 Malignant neoplasm of lower-inner quadrant of right female breast; Z79.899 Other long term (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 therapy; D70.1 Agranulocytosis secondary to cancer chemotherapy; R11.2 Nausea with vomiting, unspecified; C77.9 Secondary and unspecified malignant neoplasm of lymph node, unspecified; Z79.818 Long term (current) use of other agents affecting estrogen receptors and estrogen levels; D64.81 Anemia due to antineoplastic chemotherapy; C77.3 Secondary and unspecified malignant neoplasm of axilla and upper limb lymph nodes
CPT/HCPCS: 71260; 74177; 93005; J1642; Q9967

== ENCOUNTER 2024-05-30 07:32 | Outpatient (RCR) | payer OTHER, SELFPAY ==
[2024-05-16 12:33] VITALS: BP 154/100; PULSE 87; TEMP 36.9; O2SAT 96
[2024-05-16 13:04] LABS: Basophils Absolute Auto 0.1 10^3/uL (0.0-0.1); Basophils Percent Auto 1.1 % (0.2-2.0); Eosinophils Absolute Auto 0.1 10^3/uL (0.0-0.7); Eosinophils Percent Auto 2.7 % (0.9-7.0); Hematocrit 25.5 % (36.0-48.0); Hemoglobin 8.6 g/dL (12.0-16.0); Immature Granulocytes Pct Auto 2.2 % (0.0-0.5); Lymphocytes Absolute Auto 0.9 10^3/uL (1.2-3.8); Lymphocytes Percent Auto 19.4 % (20.5-60.0); Mean Corpuscular HGB Conc 33.7 g/dL (29.9-35.2); Mean Corpuscular Hemoglobin 30.8 pg (26.7-34.0); Mean Corpuscular Volume 91.4 fL (81.0-99.0); Mean Platelet Volume 9.6 fL (9.5-13.5); Monocytes Absolute Auto 0.6 10^3/uL (0.3-0.8); Monocytes Percent Auto 12.7 % (1.7-12.0); Neutrophils Absolute Auto 2.8 10^3/uL (1.4-6.5); Neutrophils Percent Auto 61.9 % (43.0-75.0); Platelet Count 162 10^3/uL (150-450); Red Blood Count 2.79 10^6/uL (4.20-5.40); Red Cell Distribution Width 20.1 % (11.0-15.0); White Blood Count 4.5 10^3/uL (4.0-11.0)
[2024-05-16 13:15] LABS: Alanine Aminotransferase 27 U/L (14-59); Albumin Globulin Ratio 0.8; Albumin Level 2.8 g/dL (3.4-5.0); Alkaline Phosphatase 76 U/L (46-116); Aspartate Amino Transferase 21 U/L (15-37); Bilirubin Direct 0.1 mg/dL (0.0-0.2); Bilirubin Total 0.5 mg/dL (0.2-1.0); Estimated GFR (African America >60 (>=60 mL/min/1.73m^2); Estimated GFR (Non-African Ame >60 (>=60 mL/min/1.73m^2); Globulin 3.4 g/dL; Total Protein 6.2 g/dL (6.4-8.2)
--- NOTE | 2024-05-16 14:07 | PC.NURSE ---
labs drawn good blood return from purple port, sluggish from red port, caps changed, extension sets applied, new claves applied and CHG caps applied. Old dressing removed, site clear. cleansed with chg sponge, skin prep applied. CHG dressing and statlock applied, tolerated well.
[2024-05-17 08:13] LABS: Amikacin Trough, Serum <0.8 ug/mL (1.0-8.0)
[2024-05-18 14:48] VITALS: BP 139/95; PULSE 90; TEMP 36.8; O2SAT 96
--- NOTE | 2024-05-18 14:50 | PC.NURSE ---
picc left upper arm intact, site clear, labs drawn, sent to lab. Tolerated well.
[2024-05-19 09:09] LABS: Amikacin Trough, Serum 20.3 ug/mL (1.0-8.0)
[2024-05-30 11:26] VITALS: BP 131/90; PULSE 78; TEMP 36.6; O2SAT 97
[2024-05-30 11:30] LABS: Basophils Absolute Auto 0.1 10^3/uL (0.0-0.1); Basophils Percent Auto 1.3 % (0.2-2.0); Eosinophils Absolute Auto 0.3 10^3/uL (0.0-0.7); Eosinophils Percent Auto 5.2 % (0.9-7.0); Hematocrit 29.3 % (36.0-48.0); Hemoglobin 9.7 g/dL (12.0-16.0); Immature Granulocytes Abs Auto 0.09 10^3/uL (0.00-0.03); Immature Granulocytes Pct Auto 1.9 % (0.0-0.5); Lymphocytes Absolute Auto 1.1 10^3/uL (1.2-3.8); Lymphocytes Percent Auto 23.8 % (20.5-60.0); Mean Corpuscular HGB Conc 33.1 g/dL (29.9-35.2); Mean Corpuscular Hemoglobin 30.6 pg (26.7-34.0); Mean Corpuscular Volume 92.4 fL (81.0-99.0); Mean Platelet Volume 11.2 fL (9.5-13.5); Monocytes Absolute Auto 0.7 10^3/uL (0.3-0.8); Monocytes Percent Auto 15.2 % (1.7-12.0); Neutrophils Absolute Auto 2.5 10^3/uL (1.4-6.5); Neutrophils Percent Auto 52.6 % (43.0-75.0); Platelet Count 228 10^3/uL (150-450); Red Blood Count 3.17 10^6/uL (4.20-5.40); Red Cell Distribution Width 19.8 % (11.0-15.0); White Blood Count 4.8 10^3/uL (4.0-11.0)
[2024-05-30 11:45] LABS: Alanine Aminotransferase 68 U/L (14-59); Albumin Globulin Ratio 0.8; Albumin Level 2.8 g/dL (3.4-5.0); Alkaline Phosphatase 139 U/L (46-116); Aspartate Amino Transferase 36 U/L (15-37); Bilirubin Direct 0.1 mg/dL (0.0-0.2); Bilirubin Total 0.5 mg/dL (0.2-1.0); Estimated GFR (African America >60 (>=60 mL/min/1.73m^2); Estimated GFR (Non-African Ame >60 (>=60 mL/min/1.73m^2); Globulin 3.3 g/dL; Total Protein 6.1 g/dL (6.4-8.2)
[2024-05-31 09:08] LABS: Amikacin Trough, Serum <0.8 ug/mL (1.0-8.0)
== END 2024-05-30 23:59 | disposition home or self-care (01) ==
LOC: INF 07:32
DX: A31.8 Other mycobacterial infections (principal)
CPT/HCPCS: 36592; 80076; 80150; 82565; 85025

== ENCOUNTER 2024-05-30 10:30 | Outpatient (RCR) | payer OTHER, SELFPAY ==
--- NOTE | 2024-05-30 11:48 | PC.NURSE ---
1041 here for port care and lab draw see documentation on infusion chart
== END 2024-05-30 23:59 | disposition home or self-care (01) ==
LOC: HEMC 10:30
PROVIDERS: PCP Nurse Practitioner Family; Visit Provider Internal Medicine Hematology & Oncology
DX: Z51.11 Encounter for antineoplastic chemotherapy (principal); Z51.12 Encounter for antineoplastic immunotherapy; C50.311 Malignant neoplasm of lower-inner quadrant of right female breast; Z79.899 Other long term (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 therapy; D70.1 Agranulocytosis secondary to cancer chemotherapy; R11.2 Nausea with vomiting, unspecified; C77.9 Secondary and unspecified malignant neoplasm of lymph node, unspecified; Z15.09 Genetic susceptibility to other malignant neoplasm; Z79.818 Long term (current) use of other agents affecting estrogen receptors and estrogen levels; D64.81 Anemia due to antineoplastic chemotherapy; C77.3 Secondary and unspecified malignant neoplasm of axilla and upper limb lymph nodes; A31.8 Other mycobacterial infections
CPT/HCPCS: 36592; 80076; 80150; 82565; 82784; 82785; 85025; G0463

== ENCOUNTER 2024-06-01 15:03 | Outpatient (REF) | payer OTHER, SELFPAY ==
[2024-06-03 22:07] LABS: Age Gdln ACOG Testing Note (.); HPV Aptima Negative (Negative); IGP, Aptima HPV, rfx 16/18,45 Note (.)
== END 2024-06-01 15:04 | disposition home or self-care (01) ==
LOC: LAB 15:03
PROVIDERS: PCP Nurse Practitioner Family; Visit Provider Obstetrics & Gynecology
DX: Z01.419 Encounter for gynecological examination (general) (routine) without abnormal findings (principal)
CPT/HCPCS: 87624; 88175

== ENCOUNTER 2024-06-29 07:39 | Outpatient (RCR) | payer OTHER, SELFPAY ==
[2024-06-01 14:50] VITALS: BP 146/56; PULSE 89; TEMP 36.4; O2SAT 97
[2024-06-06 11:20] LABS: Basophils Absolute Auto 0.1 10^3/uL (0.0-0.1); Basophils Percent Auto 1.2 % (0.2-2.0); Eosinophils Absolute Auto 0.3 10^3/uL (0.0-0.7); Eosinophils Percent Auto 4.9 % (0.9-7.0); Hematocrit 29.1 % (36.0-48.0); Hemoglobin 9.7 g/dL (12.0-16.0); Immature Granulocytes Abs Auto 0.02 10^3/uL (0.00-0.03); Immature Granulocytes Pct Auto 0.3 % (0.0-0.5); Lymphocytes Absolute Auto 0.8 10^3/uL (1.2-3.8); Lymphocytes Percent Auto 12.6 % (20.5-60.0); Mean Corpuscular HGB Conc 33.3 g/dL (29.9-35.2); Mean Corpuscular Hemoglobin 30.9 pg (26.7-34.0); Mean Corpuscular Volume 92.7 fL (81.0-99.0); Mean Platelet Volume 9.2 fL (9.5-13.5); Monocytes Absolute Auto 0.6 10^3/uL (0.3-0.8); Monocytes Percent Auto 9.8 % (1.7-12.0); Neutrophils Absolute Auto 4.6 10^3/uL (1.4-6.5); Neutrophils Percent Auto 71.2 % (43.0-75.0); Platelet Count 306 10^3/uL (150-450); Red Blood Count 3.14 10^6/uL (4.20-5.40); Red Cell Distribution Width 18.2 % (11.0-15.0); White Blood Count 6.5 10^3/uL (4.0-11.0)
--- NOTE | 2024-06-06 11:26 | PC.NURSE ---
1050 PICC intact left upper arm, site clear. labs drawn, excellent blood return. stat lock and old dressing removed. site clear no reddness or drainage around insertion site. skin intact no reddness or edema noted. new stat lock and CHG dressing applied, new extension sites applied, all ports CHG caps applied. Tolerated well. Released ambulatory
[2024-06-06 11:48] LABS: Alanine Aminotransferase 36 U/L (14-59); Albumin Level 2.9 g/dL (3.4-5.0); Alkaline Phosphatase 102 U/L (46-116); Aspartate Amino Transferase 24 U/L (15-37); Bilirubin Direct 0.1 mg/dL (0.0-0.2); Bilirubin Total 0.5 mg/dL (0.2-1.0); Estimated GFR (African America >60 (>=60 mL/min/1.73m^2); Estimated GFR (Non-African Ame >60 (>=60 mL/min/1.73m^2); Total Protein 5.9 g/dL (6.4-8.2)
[2024-06-07 09:08] LABS: Amikacin Trough, Serum <0.8 ug/mL (1.0-8.0)
[2024-06-10 09:08] LABS: Amikacin Peak, Serum 22.1 ug/mL (20.0-30.0)
[2024-06-20 09:45] VITALS: BP 157/98; PULSE 85; TEMP 36.6; O2SAT 97
[2024-06-20 09:57] LABS: Basophils Absolute Auto 0.1 10^3/uL (0.0-0.1); Basophils Percent Auto 0.9 % (0.2-2.0); Eosinophils Absolute Auto 0.7 10^3/uL (0.0-0.7); Eosinophils Percent Auto 11.7 % (0.9-7.0); Hematocrit 30.3 % (36.0-48.0); Hemoglobin 10.2 g/dL (12.0-16.0); Immature Granulocytes Abs Auto 0.02 10^3/uL (0.00-0.03); Immature Granulocytes Pct Auto 0.4 % (0.0-0.5); Lymphocytes Absolute Auto 0.7 10^3/uL (1.2-3.8); Lymphocytes Percent Auto 11.7 % (20.5-60.0); Mean Corpuscular HGB Conc 33.7 g/dL (29.9-35.2); Mean Corpuscular Hemoglobin 30.9 pg (26.7-34.0); Mean Corpuscular Volume 91.8 fL (81.0-99.0); Mean Platelet Volume 9.1 fL (9.5-13.5); Monocytes Absolute Auto 0.6 10^3/uL (0.3-0.8); Monocytes Percent Auto 9.9 % (1.7-12.0); Neutrophils Absolute Auto 3.6 10^3/uL (1.4-6.5); Neutrophils Percent Auto 65.4 % (43.0-75.0); Platelet Count 312 10^3/uL (150-450); Red Cell Distribution Width 16.3 % (11.0-15.0); White Blood Count 5.6 10^3/uL (4.0-11.0)
[2024-06-20 10:11] LABS: Alanine Aminotransferase 21 U/L (14-59); Albumin Globulin Ratio 0.9; Albumin Level 2.9 g/dL (3.4-5.0); Alkaline Phosphatase 81 U/L (46-116); Aspartate Amino Transferase 18 U/L (15-37); Bilirubin Direct 0.1 mg/dL (0.0-0.2); Bilirubin Total 0.6 mg/dL (0.2-1.0); Estimated GFR (African America >60 (>=60 mL/min/1.73m^2); Estimated GFR (Non-African Ame >60 (>=60 mL/min/1.73m^2); Globulin 3.3 g/dL; Total Protein 6.2 g/dL (6.4-8.2)
[2024-06-21 08:11] LABS: Amikacin Trough, Serum <0.8 ug/mL (1.0-8.0)
[2024-06-23 08:08] LABS: Amikacin Peak, Serum 24.6 ug/mL (20.0-30.0)
[2024-06-27 12:01] LABS: Basophils Absolute Auto 0.1 10^3/uL (0.0-0.1); Basophils Percent Auto 0.9 % (0.2-2.0); Eosinophils Absolute Auto 0.6 10^3/uL (0.0-0.7); Eosinophils Percent Auto 9.5 % (0.9-7.0); Hematocrit 30.5 % (36.0-48.0); Hemoglobin 10.1 g/dL (12.0-16.0); Immature Granulocytes Abs Auto 0.09 10^3/uL (0.00-0.03); Immature Granulocytes Pct Auto 1.4 % (0.0-0.5); Lymphocytes Percent Auto 15.2 % (20.5-60.0); Mean Corpuscular HGB Conc 33.1 g/dL (29.9-35.2); Mean Corpuscular Hemoglobin 30.3 pg (26.7-34.0); Mean Corpuscular Volume 91.6 fL (81.0-99.0); Mean Platelet Volume 8.9 fL (9.5-13.5); Monocytes Absolute Auto 0.4 10^3/uL (0.3-0.8); Monocytes Percent Auto 6.6 % (1.7-12.0); Neutrophils Absolute Auto 4.2 10^3/uL (1.4-6.5); Neutrophils Percent Auto 66.4 % (43.0-75.0); Platelet Count 348 10^3/uL (150-450); Red Blood Count 3.33 10^6/uL (4.20-5.40); Red Cell Distribution Width 16.3 % (11.0-15.0); White Blood Count 6.3 10^3/uL (4.0-11.0)
[2024-06-27 12:02] VITALS: BP 180/111; PULSE 72; TEMP 36.6; O2SAT 98
[2024-06-27 12:19] LABS: Alanine Aminotransferase 45 U/L (14-59); Alkaline Phosphatase 87 U/L (46-116); Aspartate Amino Transferase 50 U/L (15-37); Bilirubin Direct 0.1 mg/dL (0.0-0.2); Bilirubin Total 0.4 mg/dL (0.2-1.0); Estimated GFR (African America >60 (>=60 mL/min/1.73m^2); Estimated GFR (Non-African Ame >60 (>=60 mL/min/1.73m^2)
[2024-06-28 10:10] LABS: Amikacin Trough, Serum <0.8 ug/mL (1.0-8.0)
[2024-06-30 09:12] LABS: Amikacin Peak, Serum 28.6 ug/mL (20.0-30.0)
== END 2024-06-29 23:59 | disposition home or self-care (01) ==
LOC: INF 07:39
PROVIDERS: Internal Medicine Hematology & Oncology; PCP Nurse Practitioner Family
DX: A31.8 Other mycobacterial infections (principal); Z01.419 Encounter for gynecological examination (general) (routine) without abnormal findings
CPT/HCPCS: 36591; 36592; 80076; 80150; 82565; 85025; 87624; 88175

== ENCOUNTER 2024-07-28 07:27 | Outpatient (RCR) | payer OTHER, SELFPAY ==
[2024-07-26 09:20] VITALS: BP 145/90; PULSE 84; TEMP 36.5; O2SAT 98
[2024-07-26 09:49] LABS: Basophils Absolute Auto 0.1 10^3/uL (0.0-0.1); Basophils Percent Auto 0.9 % (0.2-2.0); Eosinophils Absolute Auto 0.4 10^3/uL (0.0-0.7); Eosinophils Percent Auto 7.4 % (0.9-7.0); Hematocrit 37.8 % (36.0-48.0); Hemoglobin 11.5 g/dL (12.0-16.0); Immature Granulocytes Abs Auto 0.02 10^3/uL (0.00-0.03); Immature Granulocytes Pct Auto 0.4 % (0.0-0.5); Lymphocytes Absolute Auto 0.9 10^3/uL (1.2-3.8); Lymphocytes Percent Auto 16.5 % (20.5-60.0); Mean Corpuscular HGB Conc 30.4 g/dL (29.9-35.2); Mean Corpuscular Hemoglobin 32.5 pg (26.7-34.0); Mean Platelet Volume 9.5 fL (9.5-13.5); Monocytes Absolute Auto 0.4 10^3/uL (0.3-0.8); Monocytes Percent Auto 7.6 % (1.7-12.0); Neutrophils Absolute Auto 3.8 10^3/uL (1.4-6.5); Neutrophils Percent Auto 67.2 % (43.0-75.0); Platelet Count 224 10^3/uL (150-450); Red Blood Count 3.54 10^6/uL (4.20-5.40); Red Cell Distribution Width 17.2 % (11.0-15.0); White Blood Count 5.6 10^3/uL (4.0-11.0)
[2024-07-26 10:05] LABS: Alanine Aminotransferase 70 U/L (14-59); Albumin Globulin Ratio 1.2; Albumin Level 3.6 g/dL (3.4-5.0); Alkaline Phosphatase 98 U/L (46-116); Anion Gap 12.6; Aspartate Amino Transferase 47 U/L (15-37); BUN Creatinine Ratio 14.7; Bilirubin Total 0.8 mg/dL (0.2-1.0); Calcium 9.4 mg/dL (8.5-10.1); Carbon Dioxide 26.2 mmol/L (21.0-32.0); Chloride 105 mmol/L (98-107); Estimated GFR (African America >60 (>=60 mL/min/1.73m^2); Estimated GFR (Non-African Ame >60 (>=60 mL/min/1.73m^2); Globulin 3.1 g/dL; Glucose 94 mg/dL (74-106); Potassium 3.8 mmol/L (3.5-5.1); Sodium 140 mmol/L (136-145); Total Protein 6.7 g/dL (6.4-8.2)
[2024-07-26 10:10] LABS: Mean Corpuscular Volume 106.8 fL (81.0-99.0)
[2024-07-26] MEDS: ZOLEDRONIC ACID 4 MG in 0.9 % SODIUM CHLORIDE 100 ML 210 MG IV (11:50)
--- NOTE | 2024-07-26 11:54 | PC.NURSE ---
1150: IV Zometa initiated at this time. Pt. given lunch tray. 1150: Dr. Hope to bedside.
[2024-07-26] MEDS: 0.9 % SODIUM CHLORIDE 250 ML 10 ML IV (12:00)
== END 2024-07-28 11:18 | disposition home or self-care (01) ==
LOC: HEMC 07:27
PROVIDERS: PCP Nurse Practitioner Family; Visit Provider Internal Medicine Hematology & Oncology
DX: A31.8 Other mycobacterial infections (principal); C50.311 Malignant neoplasm of lower-inner quadrant of right female breast; Z79.899 Other long term (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 therapy; D70.1 Agranulocytosis secondary to cancer chemotherapy; Z51.12 Encounter for antineoplastic immunotherapy; R11.2 Nausea with vomiting, unspecified; C77.9 Secondary and unspecified malignant neoplasm of lymph node, unspecified; Z15.09 Genetic susceptibility to other malignant neoplasm; Z51.11 Encounter for antineoplastic chemotherapy; Z79.818 Long term (current) use of other agents affecting estrogen receptors and estrogen levels; D64.81 Anemia due to antineoplastic chemotherapy; C77.3 Secondary and unspecified malignant neoplasm of axilla and upper limb lymph nodes; Z17.1 Estrogen receptor negative status [ER-]; Z17.22 Progesterone receptor negative status
CPT/HCPCS: 36415; 36592; 80053; 80076; 80150; 82248; 82565; 85025; 96365; G0463; J3489

== ENCOUNTER 2024-07-29 07:33 | Outpatient (RCR) | payer OTHER, SELFPAY ==
[2024-07-05 09:39] VITALS: BP 157/101; PULSE 80; TEMP 36.2; O2SAT 97
[2024-07-05 10:06] LABS: Basophils Absolute Auto 0.1 10^3/uL (0.0-0.1); Eosinophils Absolute Auto 0.4 10^3/uL (0.0-0.7); Eosinophils Percent Auto 6.9 % (0.9-7.0); Hematocrit 32.4 % (36.0-48.0); Hemoglobin 10.9 g/dL (12.0-16.0); Immature Granulocytes Abs Auto 0.03 10^3/uL (0.00-0.03); Immature Granulocytes Pct Auto 0.5 % (0.0-0.5); Lymphocytes Absolute Auto 0.9 10^3/uL (1.2-3.8); Lymphocytes Percent Auto 14.4 % (20.5-60.0); Mean Corpuscular HGB Conc 33.6 g/dL (29.9-35.2); Mean Corpuscular Hemoglobin 31.1 pg (26.7-34.0); Mean Corpuscular Volume 92.3 fL (81.0-99.0); Mean Platelet Volume 8.9 fL (9.5-13.5); Monocytes Absolute Auto 0.4 10^3/uL (0.3-0.8); Monocytes Percent Auto 6.7 % (1.7-12.0); Neutrophils Absolute Auto 4.3 10^3/uL (1.4-6.5); Neutrophils Percent Auto 70.5 % (43.0-75.0); Platelet Count 276 10^3/uL (150-450); Red Blood Count 3.51 10^6/uL (4.20-5.40); Red Cell Distribution Width 16.4 % (11.0-15.0); White Blood Count 6.1 10^3/uL (4.0-11.0)
[2024-07-05 10:25] LABS: Alanine Aminotransferase 48 U/L (14-59); Albumin Level 3.2 g/dL (3.4-5.0); Alkaline Phosphatase 89 U/L (46-116); Aspartate Amino Transferase 30 U/L (15-37); Bilirubin Direct 0.1 mg/dL (0.0-0.2); Bilirubin Total 0.7 mg/dL (0.2-1.0); Estimated GFR (African America >60 (>=60 mL/min/1.73m^2); Estimated GFR (Non-African Ame >60 (>=60 mL/min/1.73m^2); Globulin 3.1 g/dL; Total Protein 6.3 g/dL (6.4-8.2)
[2024-07-06 11:10] LABS: Amikacin Trough, Serum <0.8 ug/mL (1.0-8.0)
[2024-07-07 16:06] VITALS: BP 145/100; PULSE 78; TEMP 36.4; O2SAT 98
--- NOTE | 2024-07-07 16:07 | PC.NURSE ---
picc intact rt uppper inner arm. patient complains of site being reddened and tender. excellent blood return noted, labs drawn. dressing removed, cleansed site sl reddened approx 1/2 cm around site, clensed with chlorhexadine, applied new statlock and non CHG tegaderm to see if that was causing some irritation. patient educated to contact us if any further problems with picc site ie fever increased pain drainage etc. verbalizes understanding
[2024-07-09 09:12] LABS: Amikacin Peak, Serum 19.2 ug/mL (20.0-30.0)
[2024-07-11 10:37] VITALS: BP 148/100; PULSE 80; TEMP 36.4; O2SAT 98
[2024-07-11 10:56] LABS: Basophils Absolute Auto 0.1 10^3/uL (0.0-0.1); Eosinophils Absolute Auto 0.5 10^3/uL (0.0-0.7); Eosinophils Percent Auto 8.9 % (0.9-7.0); Hematocrit 31.3 % (36.0-48.0); Hemoglobin 10.5 g/dL (12.0-16.0); Immature Granulocytes Abs Auto 0.02 10^3/uL (0.00-0.03); Immature Granulocytes Pct Auto 0.3 % (0.0-0.5); Lymphocytes Percent Auto 16.8 % (20.5-60.0); Mean Corpuscular HGB Conc 33.5 g/dL (29.9-35.2); Mean Corpuscular Volume 92.3 fL (81.0-99.0); Mean Platelet Volume 9.3 fL (9.5-13.5); Monocytes Absolute Auto 0.5 10^3/uL (0.3-0.8); Monocytes Percent Auto 7.9 % (1.7-12.0); Neutrophils Absolute Auto 3.7 10^3/uL (1.4-6.5); Neutrophils Percent Auto 65.1 % (43.0-75.0); Platelet Count 257 10^3/uL (150-450); Red Blood Count 3.39 10^6/uL (4.20-5.40); Red Cell Distribution Width 16.7 % (11.0-15.0); White Blood Count 5.7 10^3/uL (4.0-11.0)
[2024-07-11 11:14] LABS: Alanine Aminotransferase 55 U/L (14-59); Albumin Level 3.1 g/dL (3.4-5.0); Alkaline Phosphatase 97 U/L (46-116); Aspartate Amino Transferase 37 U/L (15-37); Bilirubin Direct 0.1 mg/dL (0.0-0.2); Bilirubin Total 0.5 mg/dL (0.2-1.0); Estimated GFR (African America >60 (>=60 mL/min/1.73m^2); Estimated GFR (Non-African Ame >60 (>=60 mL/min/1.73m^2); Globulin 3.1 g/dL; Total Protein 6.2 g/dL (6.4-8.2)
[2024-07-12 09:08] LABS: Amikacin Trough, Serum 0.9 ug/mL (1.0-8.0)
[2024-07-14 08:09] LABS: Amikacin Peak, Serum 29.8 ug/mL (20.0-30.0)
[2024-07-18 13:20] LABS: Basophils Absolute Auto 0.1 10^3/uL (0.0-0.1); Basophils Percent Auto 1.6 % (0.2-2.0); Eosinophils Absolute Auto 0.4 10^3/uL (0.0-0.7); Eosinophils Percent Auto 8.3 % (0.9-7.0); Hematocrit 32.3 % (36.0-48.0); Hemoglobin 11.1 g/dL (12.0-16.0); Immature Granulocytes Abs Auto 0.04 10^3/uL (0.00-0.03); Immature Granulocytes Pct Auto 0.8 % (0.0-0.5); Lymphocytes Percent Auto 18.7 % (20.5-60.0); Mean Corpuscular HGB Conc 34.4 g/dL (29.9-35.2); Mean Corpuscular Volume 93.1 fL (81.0-99.0); Mean Platelet Volume 9.3 fL (9.5-13.5); Monocytes Absolute Auto 0.5 10^3/uL (0.3-0.8); Neutrophils Absolute Auto 3.1 10^3/uL (1.4-6.5); Neutrophils Percent Auto 61.6 % (43.0-75.0); Platelet Count 301 10^3/uL (150-450); Red Blood Count 3.47 10^6/uL (4.20-5.40); Red Cell Distribution Width 16.4 % (11.0-15.0); White Blood Count 5.1 10^3/uL (4.0-11.0)
[2024-07-18 13:35] LABS: Alanine Aminotransferase 117 U/L (14-59); Albumin Globulin Ratio 1.1; Albumin Level 3.4 g/dL (3.4-5.0); Alkaline Phosphatase 93 U/L (46-116); Aspartate Amino Transferase 83 U/L (15-37); Bilirubin Direct 0.1 mg/dL (0.0-0.2); Bilirubin Total 0.9 mg/dL (0.2-1.0); Estimated GFR (African America >60 (>=60 mL/min/1.73m^2); Estimated GFR (Non-African Ame >60 (>=60 mL/min/1.73m^2); Globulin 3.1 g/dL; Total Protein 6.5 g/dL (6.4-8.2)
[2024-07-19 09:09] LABS: Amikacin Trough, Serum <0.8 ug/mL (1.0-8.0)
[2024-07-21 08:09] LABS: Amikacin Peak, Serum 27.6 ug/mL (20.0-30.0)
[2024-07-26 11:02] LABS: Bilirubin Direct 0.2 mg/dL (0.0-0.2)
[2024-07-27 11:08] LABS: Amikacin Trough, Serum <0.8 ug/mL (1.0-8.0)
== END 2024-07-30 23:59 | disposition home or self-care (01) ==
LOC: INF 07:33
PROVIDERS: PCP Nurse Practitioner Family
DX: A31.8 Other mycobacterial infections (principal)
CPT/HCPCS: 36415; 36592; 80076; 80150; 82248; 82565; 85025

== ENCOUNTER 2024-08-16 08:02 | Outpatient (RCR) | payer OTHER, SELFPAY ==
[2024-08-02 13:15] LABS: Alanine Aminotransferase 79 U/L (14-59); Albumin Level 3.4 g/dL (3.4-5.0); Alkaline Phosphatase 124 U/L (46-116); Anion Gap 14.4; Aspartate Amino Transferase 61 U/L (15-37); BUN Creatinine Ratio 13.7; Bilirubin Total 0.6 mg/dL (0.2-1.0); Calcium 9.1 mg/dL (8.5-10.1); Carbon Dioxide 26.6 mmol/L (21.0-32.0); Chloride 105 mmol/L (98-107); Estimated GFR (African America >60 (>=60 mL/min/1.73m^2); Estimated GFR (Non-African Ame >60 (>=60 mL/min/1.73m^2); Globulin 3.4 g/dL; Glucose 102 mg/dL (74-106); Sodium 142 mmol/L (136-145); Total Protein 6.8 g/dL (6.4-8.2)
[2024-08-16 12:42] LABS: Percent Iron Saturation 23.2 %
--- NOTE | 2024-08-16 13:32 | PC.NURSE ---
Undo Add?Addendum ? IKE JONES Female : 1970 MedRec# [id number] 08/16/24 10:51 - Nurse Note by Milana Keen Acct Num: [id number] : 1970 Patient Age: 53 1040 Patient arrived to [facility] to have PICC dressing changed. Removed old dressing, cleansed with chloraprep. Waited for area to dry. Applied skin prep followed by stat lock. Covred with G Tegaderm. Date and timed. Patient tolerated well. Initialized on 08/16/24 10:51 - END OF NOTE
--- NOTE | 2024-08-16 13:32 | PC.NURSE ---
1245 Labs drawn from [facility] per RReed, excellent blood return noted. flushed with ns following blood draw, patient tolerated well.
[2024-08-17 06:08] LABS: Vitamin B12 >2000 pg/mL (232-1245)
== END 2024-08-17 09:13 | disposition home or self-care (01) ==
LOC: HEMC 08:02
PROVIDERS: PCP Nurse Practitioner Family; Visit Provider Internal Medicine Hematology & Oncology
DX: C50.311 Malignant neoplasm of lower-inner quadrant of right female breast (principal); Z79.899 Other long term (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 therapy; D70.1 Agranulocytosis secondary to cancer chemotherapy; R11.2 Nausea with vomiting, unspecified; Z79.818 Long term (current) use of other agents affecting estrogen receptors and estrogen levels; D64.81 Anemia due to antineoplastic chemotherapy; C77.3 Secondary and unspecified malignant neoplasm of axilla and upper limb lymph nodes; Z17.1 Estrogen receptor negative status [ER-]; Z17.22 Progesterone receptor negative status; Z15.09 Genetic susceptibility to other malignant neoplasm; A31.8 Other mycobacterial infections; Z51.81 Encounter for therapeutic drug level monitoring
CPT/HCPCS: 36591; 36592; 80051; 80053; 80076; 80150; 82248; 82310; 82565; 82607; 82728; 82746; 82947; 83540; 83550; 84520; 85025; 85610; 93005; G0463

== ENCOUNTER 2024-08-24 10:34 | Outpatient (RCR) | payer OTHER, SELFPAY ==
[2024-08-02 12:51] LABS: Basophils Absolute Auto 0.1 10^3/uL (0.0-0.1); Basophils Percent Auto 1.4 % (0.2-2.0); Eosinophils Absolute Auto 0.4 10^3/uL (0.0-0.7); Eosinophils Percent Auto 8.1 % (0.9-7.0); Hematocrit 32.6 % (36.0-48.0); Hemoglobin 11.2 g/dL (12.0-16.0); Immature Granulocytes Abs Auto 0.03 10^3/uL (0.00-0.03); Immature Granulocytes Pct Auto 0.6 % (0.0-0.5); Lymphocytes Percent Auto 20.4 % (20.5-60.0); Mean Corpuscular HGB Conc 34.4 g/dL (29.9-35.2); Mean Corpuscular Volume 93.1 fL (81.0-99.0); Mean Platelet Volume 9.3 fL (9.5-13.5); Monocytes Absolute Auto 0.4 10^3/uL (0.3-0.8); Monocytes Percent Auto 8.6 % (1.7-12.0); Neutrophils Absolute Auto 3.1 10^3/uL (1.4-6.5); Neutrophils Percent Auto 60.9 % (43.0-75.0); Platelet Count 291 10^3/uL (150-450); Red Cell Distribution Width 16.1 % (11.0-15.0); White Blood Count 5.1 10^3/uL (4.0-11.0)
[2024-08-02 13:30] LABS: Bilirubin Direct 0.1 mg/dL (0.0-0.2)
[2024-08-03 08:08] LABS: Amikacin Trough, Serum <0.8 ug/mL (1.0-8.0)
[2024-08-05 08:08] LABS: Amikacin Peak, Serum 34.6 ug/mL (20.0-30.0)
[2024-08-08 13:19] LABS: Basophils Absolute Auto 0.1 10^3/uL (0.0-0.1); Basophils Percent Auto 1.2 % (0.2-2.0); Eosinophils Absolute Auto 0.4 10^3/uL (0.0-0.7); Eosinophils Percent Auto 6.8 % (0.9-7.0); Hematocrit 30.6 % (36.0-48.0); Hemoglobin 10.4 g/dL (12.0-16.0); Immature Granulocytes Abs Auto 0.03 10^3/uL (0.00-0.03); Immature Granulocytes Pct Auto 0.5 % (0.0-0.5); Lymphocytes Percent Auto 17.5 % (20.5-60.0); Mean Corpuscular Volume 94.2 fL (81.0-99.0); Mean Platelet Volume 9.1 fL (9.5-13.5); Monocytes Absolute Auto 0.4 10^3/uL (0.3-0.8); Monocytes Percent Auto 6.5 % (1.7-12.0); Neutrophils Absolute Auto 3.8 10^3/uL (1.4-6.5); Neutrophils Percent Auto 67.5 % (43.0-75.0); Platelet Count 298 10^3/uL (150-450); Red Blood Count 3.25 10^6/uL (4.20-5.40); Red Cell Distribution Width 16.2 % (11.0-15.0); White Blood Count 5.7 10^3/uL (4.0-11.0)
[2024-08-08 13:35] LABS: Alanine Aminotransferase 198 U/L (14-59); Albumin Level 3.2 g/dL (3.4-5.0); Alkaline Phosphatase 136 U/L (46-116); Aspartate Amino Transferase 123 U/L (15-37); Bilirubin Direct 0.2 mg/dL (0.0-0.2); Bilirubin Total 0.7 mg/dL (0.2-1.0); Estimated GFR (African America 57 (>=60 mL/min/1.73m^2); Estimated GFR (Non-African Ame 47 (>=60 mL/min/1.73m^2); Globulin 3.3 g/dL; Total Protein 6.5 g/dL (6.4-8.2)
[2024-08-09 09:08] LABS: Amikacin Trough, Serum <0.8 ug/mL (1.0-8.0)
[2024-08-11 12:12] LABS: Amikacin Peak, Serum 35.6 ug/mL (20.0-30.0)
[2024-08-15 14:13] LABS: Basophils Absolute Auto 0.1 10^3/uL (0.0-0.1); Basophils Percent Auto 1.2 % (0.2-2.0); Eosinophils Absolute Auto 0.4 10^3/uL (0.0-0.7); Hematocrit 29.7 % (36.0-48.0); Hemoglobin 10.2 g/dL (12.0-16.0); Immature Granulocytes Abs Auto 0.02 10^3/uL (0.00-0.03); Immature Granulocytes Pct Auto 0.4 % (0.0-0.5); Lymphocytes Percent Auto 21.3 % (20.5-60.0); Mean Corpuscular HGB Conc 34.3 g/dL (29.9-35.2); Mean Corpuscular Hemoglobin 32.6 pg (26.7-34.0); Mean Corpuscular Volume 94.9 fL (81.0-99.0); Mean Platelet Volume 8.8 fL (9.5-13.5); Monocytes Absolute Auto 0.4 10^3/uL (0.3-0.8); Neutrophils Percent Auto 61.1 % (43.0-75.0); Platelet Count 284 10^3/uL (150-450); Red Blood Count 3.13 10^6/uL (4.20-5.40); Red Cell Distribution Width 16.8 % (11.0-15.0); White Blood Count 4.9 10^3/uL (4.0-11.0)
[2024-08-15 14:28] LABS: Alanine Aminotransferase 146 U/L (14-59); Albumin Globulin Ratio 1.1; Albumin Level 3.4 g/dL (3.4-5.0); Alkaline Phosphatase 116 U/L (46-116); Aspartate Amino Transferase 88 U/L (15-37); Bilirubin Direct 0.2 mg/dL (0.0-0.2); Bilirubin Total 0.8 mg/dL (0.2-1.0); Estimated GFR (African America >60 (>=60 mL/min/1.73m^2); Estimated GFR (Non-African Ame 50 (>=60 mL/min/1.73m^2); Globulin 3.1 g/dL; Total Protein 6.5 g/dL (6.4-8.2)
[2024-08-16 08:09] LABS: Amikacin Trough, Serum <0.8 ug/mL (1.0-8.0)
--- NOTE | 2024-08-16 10:51 | PC.NURSE ---
1040 Patient arrived to [facility] to have PICC dressing changed. Removed old dressing, cleansed with chloraprep. Waited for area to dry. Applied skin prep followed by stat lock. Covred with [facility] Tegaderm. Date and timed. Patient tolerated well.
[2024-08-18 10:08] LABS: Amikacin Peak, Serum 30.1 ug/mL (20.0-30.0)
[2024-08-22 13:00] VITALS: BP 131/90; PULSE 72; TEMP 36.6; O2SAT 98
[2024-08-22 14:23] LABS: Basophils Absolute Auto 0.1 10^3/uL (0.0-0.1); Basophils Percent Auto 1.6 % (0.2-2.0); Eosinophils Absolute Auto 0.4 10^3/uL (0.0-0.7); Eosinophils Percent Auto 9.4 % (0.9-7.0); Hematocrit 28.6 % (36.0-48.0); Hemoglobin 9.9 g/dL (12.0-16.0); Immature Granulocytes Abs Auto 0.01 10^3/uL (0.00-0.03); Immature Granulocytes Pct Auto 0.3 % (0.0-0.5); Lymphocytes Absolute Auto 0.8 10^3/uL (1.2-3.8); Lymphocytes Percent Auto 19.9 % (20.5-60.0); Mean Corpuscular HGB Conc 34.6 g/dL (29.9-35.2); Mean Corpuscular Hemoglobin 32.8 pg (26.7-34.0); Mean Corpuscular Volume 94.7 fL (81.0-99.0); Mean Platelet Volume 9.3 fL (9.5-13.5); Monocytes Absolute Auto 0.4 10^3/uL (0.3-0.8); Monocytes Percent Auto 9.2 % (1.7-12.0); Neutrophils Absolute Auto 2.3 10^3/uL (1.4-6.5); Neutrophils Percent Auto 59.6 % (43.0-75.0); Platelet Count 262 10^3/uL (150-450); Red Blood Count 3.02 10^6/uL (4.20-5.40); Red Cell Distribution Width 17.6 % (11.0-15.0); White Blood Count 3.8 10^3/uL (4.0-11.0)
[2024-08-22 14:56] LABS: Alanine Aminotransferase 157 U/L (14-59); Albumin Globulin Ratio 1.1; Albumin Level 3.4 g/dL (3.4-5.0); Alkaline Phosphatase 119 U/L (46-116); Aspartate Amino Transferase 112 U/L (15-37); Bilirubin Direct 0.1 mg/dL (0.0-0.2); Bilirubin Total 0.8 mg/dL (0.2-1.0); Estimated GFR (African America 54 (>=60 mL/min/1.73m^2); Estimated GFR (Non-African Ame 45 (>=60 mL/min/1.73m^2); Total Protein 6.4 g/dL (6.4-8.2)
[2024-08-23 08:08] LABS: Amikacin Trough, Serum <0.8 ug/mL (1.0-8.0)
[2024-08-23 13:34] LABS: Anion Gap 15.2; Calcium 9.3 mg/dL (8.5-10.1); Carbon Dioxide 25.2 mmol/L (21.0-32.0); Chloride 106 mmol/L (98-107); Glucose 72 mg/dL (74-106); Potassium 4.4 mmol/L (3.5-5.1); Sodium 142 mmol/L (136-145)
[2024-08-25 08:09] LABS: Amikacin Peak, Serum 29.2 ug/mL (20.0-30.0)
[2024-08-25 09:45] LABS: INR 1.21; Prothrombin Time 12.6 sec (9.0-11.6)
== END 2024-08-29 23:59 | disposition home or self-care (01) ==
LOC: INF 10:34
PROVIDERS: PCP Nurse Practitioner Family
DX: A31.8 Other mycobacterial infections (principal); C50.311 Malignant neoplasm of lower-inner quadrant of right female breast; Z79.899 Other long term (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 therapy; D70.1 Agranulocytosis secondary to cancer chemotherapy; R11.2 Nausea with vomiting, unspecified; C77.9 Secondary and unspecified malignant neoplasm of lymph node, unspecified; Z15.09 Genetic susceptibility to other malignant neoplasm; Z79.818 Long term (current) use of other agents affecting estrogen receptors and estrogen levels; D64.81 Anemia due to antineoplastic chemotherapy; C77.3 Secondary and unspecified malignant neoplasm of axilla and upper limb lymph nodes; Z17.1 Estrogen receptor negative status [ER-]; Z17.22 Progesterone receptor negative status; Z51.81 Encounter for therapeutic drug level monitoring
CPT/HCPCS: 36591; 36592; 80051; 80076; 80150; 82248; 82310; 82565; 82947; 84520; 85025; 85610; 93005

== ENCOUNTER 2024-08-24 11:08 | Outpatient (OUT) | payer OTHER, SELFPAY ==
--- OUTSIDE RECORDS SUMMARY | 2024-08-10 10:00 | XMS_ITS | Encounter Summary ---
Author Organization [facility] Address [id number] [address] [place] [address] Care Team Providers Care Credit Card Specialist Name Role Phone Amy Collier GENERAL MAINTENANCE TECHNICIAN-FLUX PLANT OPERATOR Primary Care Provider + Encounter Details Date Type Department Care Team (Late st Contact Info) Description 08/10/2024 10:00 AM EDT [facility] On [address] [address] Social History Tobacco Use Types Packs/Day Years Used Date Smoking Tobacco: Never Passive Smoke Exposure: Past Smokeless Tobacco: Never Alcohol Use Standard Drinks/Week Comments Not Currently 0 (1 standard drink = 0.6 oz pur e alcohol) [facility] Utilities Answer Date Recorded In the past 12 months has [employer] electric, gas, oil, or water [employer] threatened to shut off services in your home? No 07/27/2024 Social Connection and Isolat ion Panel [NHANES] Answer Date Recorded In a typical week, how many times do you talk on the phone with family, friends, or neighbors? Twice a week 02/27/2022 How often do you get togethe r with friends or relatives? Three times a week 02/27/2022 How often do you attend chur ch or yazdanism services? More than 4 times per year 02/27/2022 Do you belong to any clubs o r organizations such as islam groups, unions, fraternal or athletic groups, or school groups? Yes 02/27/2022 How often do you attend meet ings of the clubs or organizations you belong to? 1 to 4 times per year 02/27/2022 Are you , , di vorced, , never , or living with a partner? 02/27/2022 AUDIT-C Answer Date Recorded Q1: How often do you have a drink containing alc ohol? 2-3 times a week 02/27/2022 Q2: How many drinks containi ng alcohol do you have on a typical day when you are drinking? 1 or 2 02/27/2022 Q3: How often do you have si x or more drinks on one occasion? Less than monthly 02/27/2022 Overall Financial Resource Strain (CARDIA) Answe r Date Recorded How hard is it for you to pa y for the very basics like food, housing, medical care, and heating? Not hard at all 02/27/2022 PHQ-2 Answer Date Recorded Total Score 0 08/10/2024 [facility] [place] of Occupat ional Health - Occupational Stress Questionnaire Answer Date Recorded Do you feel stress - tense, restless, nervous, or anxious, or unable to sleep at night because your mind is troubled all the time - these days? To some extent 02/27/2022 Exercise Vital Sign Answer Date Recorde d On average, how many days pe r week do you engage in moderate to strenuous exercise (like a brisk walk)? 3 days 02/27/2022 On average, how many minutes do you engage in exercise at this level? 60 min 02/27/2022 PRAPARE - Transportation Answer Date Re corded In the past 12 months, has l ack of transportation kept you from medical appointments or from getting medications? No 07/01 In the past 12 months, has l ack of transportation kept you from meetings, work, or from getting things needed for daily living? No 07/27/2024 Housing Instability Answer Date Recorde d Are you worried or concerned that in the next two months you may not have stable housing that you own, rent or stay in as a part of a household? No 07/27/2024 Childcare Answer Date Recorded Do problems getting child ca re make it difficult for you to work or study? No 02/27/2022 Employment Answer Date Recorded Do you need help finding a l ocal career center and/or a training program? No 02/27/2022 Hunger Screening Answer Date Recorded Within the past 12 months we worried whether our food would run out before we got money to buy more. Never True 08/11/2024 Within the past 12 months th e food we bought just didn't last and we didn't have money to get more. Never True 08/11/2024 Purpose - Life Answer Date Recorded I have a purpose and direction in my life. Agree 02/27/2022 Education Answer Date Recorded What is the highest level of school you have completed or the highest degree you have received? Some college, no degree 02/27/2022 Comments No Sex and Gender Information Value Date Recorded Sex Assigned at Not on file Legal Sex Female 12:12 PM EDT Gender Identity Not on file Sexual Orientation Not on file documented as of this encounter Miscellaneous Notes * Pre-Procedure Instructions - Ora Sharpe RN - 08/10/2024 10:00 AM EDT Your surgery/procedure is scheduled at [facility] on 08/12/24 at 8:00 Arrival Time 6:00 [facility] Address: [address] [place] [address], [address] [place] [address] in the Emergency Center Parking lot. Report to the front end web developer in the Emergency/Surgery Registration lobby of the hospital. Notify your SURGEON if you develop any illness such as a cold, cough, fever, sore throat, vomiting or are hospitalized between now and your surgery. Please call Pre-Admission Clinic at [phone] if you have any questions prior to surgery. For questions the morning of surgery, call the Pre-op Department at [phone]. Medication Instructions (Do not stop your medications without consulting the prescribing physician). Take the following medications the morning of surgery with a sip of water: Carvedilol and Gabapentin Diabetic or Weight loss medications: HOLD/NONE Take inhalers as prescribed the morning of [...] weekly, hold 1 week prior to surgery: Alexandra . Blood thinners: Please contact your prescribing physician regarding a stop/hold date for these medications. Medications such as Coumadin, Heparin, Aspirin, Plavix, Eliquis, Pradaxa *Eliquis stopped already* Diabetics: If you take insulin, contact your prescribing doctor for instructions on how to manage this the night before and the morning of surgery. Non-steriodal Anti-Inflammatory Drugs (NSAIDS)- Hold 3 days prior to surgery unless otherwise directed by your surgeon. Tylenol ok. Vitamins/Herbal Products: You may continue to take your prescribed vitamins such as potassium, iron, vitamin B, vitamin C, or multivitamin unless specifically instructed by your surgeon to hold. STOPtaking all herbal products/teas one week prior [...] CHG soap the morning of your surgery. What do I need to do to [...] would like to schedule therapy at a [facility] Rehab facility, please call [phone] ([phone]). Do not use lotions, creams, powders, perfume, make up, cologne or after-shaves day of surgery. Remove ALL jewelry including wedding rings, body piercings, hair extensions that contain metal, nail bengali, make-up, and contact lens. You may brush your teeth the morning of surgery, but do not swallow the water. Wear your dentures and partial plates to the hospital (no adhesive). Shower the night the before. If applicable, use the CHG (chlorhexidine gluconate) soap or wipes. Please place clean linens on your bed after showering. Do not allow your pets in your bed. Please be advised, [facility] has transitioned to a cashless payment system. What should I bring to the hospital? Eyeglass or contact lens case If you [...] be aware - it may not be rouse to cough following some types of surgeries [...] hours during the day and early evening. Surgical Site Infection Prevention What is a Surgical Site Infection (SSI)? Infection can happen to the area of the body where surgery is done. This is called a surgical site infection (SSI). A SSI does not happen very often. What are some of the things that hospitals are doing to prevent SSIs? Soap and water or alcohol hand rub are used before and after caring for each patient. Special soap is used to clean surgery workers [...] Use the soap as you were told. Place clean sheets on your bed the night before surgery and do not allow your pets in your bed. If you smoke or vape, stop or cut down. This creates a stress response in your body that increases inflammation, constricts blood vessels and deprives your tissues of oxygen. After surgery, this stress response disrupts the travel of oxygen, nutrients, and blood to your surgical site, interfering with the wound healing process. It also decreases the ability of your cells to fight infection. Ask your doctor about ways to quit. If you have high blood sugars or diabetes please talk with your doctor about having healthy blood sugar levels to promote healing. Do not shave near where you will have surgery. Shaving can irritate the skin and make it easier to get and infection. After surgery: Be sure that the doctors and nurses clean their hands before and after touching you. Be sure your family and friends clean their hands before and after visiting you. Do not be afraid to remind them. Always wash your hands before touching your incisional area. * Care for your wound at home as told by your doctor or nurse * Call your doctor right away if you have fever, redness, increased pain, or drainage at the surgery site. Can SSIs be treated? Antibiotics are used to treat SSI. Some patients may need another surgery to treat the infection. The doctor will discuss treatment options with you. Further questions? Contact the doctor, nurse or the Infection Prevention and Control department if you have any questions. PATIENT RIGHTS AND RESPONSIBILITIES As a patient at [facility], you have the right to: Receive medical care and be informed of who is taking care of you Be treated with dignity and respect Have a family member/employee representative of choice and your physician notified of your admission Receive information and actively participate in decisions about your care and treatment Refuse care, treatment and services Decide who may provide your support and speak for you Access yazdanism and spiritual services Participate in ethical issues [...] of hospital charges and payment methods Patient/patient employee representative responsibilities are to: Provide information about [...] promptly as possible documented in this encounter Plan of Treatment Upcoming Encounters Date Type Department Care Team (Late st Contact Info) Description 08/29/2024 9:30 AM EDT Office Visit [facility] Physicians Plastic and Reconstructive Surgery [facility] [address] [facility] [address] [place] [address] Shreeen Smallwood PA-C [address] [facility] [address], [facility] [address] [place] [address] 10/26/2024 8:30 AM EDT Telephone Visit [facility] Gynecology Oncology, A Department of [facility] [address] [facility] [address] [facility] [place] [address] Raymond Sepulveda MD [address] [facility], [address] [place] [address] documented as of this encounter Goals Goal Patient Goal Type Associated Problems Recent Progress Patient-Stated? Author return home General Yes Mariah Gonsalez, RN Note: Evaluation of progress towards goal: progressing, patient will return home at discharge/follow up [facility] Wound care clinic Autogenerated Goal Care Plan Autogenerated Problem No Skyla Marie documented as of this encounter Visit Diagnoses Not on filedocumented in this encounter Additional Health Concerns Active Problems Noted Date Diagnosed Date Autogenerated Problem 08/09/2024 Assessment Noted Time PHQ-9 Depression Total Score: 0 08/11/19 25 3:50 PM EDT documented as of this encounter Care Teams Credit Card Specialist Relationship Specialty Start Date End Date Amy Collier, GENERAL MAINTENANCE TECHNICIAN-FLUX PLANT OPERATOR [address] [place] [address] PCP - General 11/28/16 documented as of this encounter
--- OUTSIDE RECORDS SUMMARY | 2024-08-10 15:30 | XMS_ITS | Encounter Summary ---
Author Organization [facility] Address [id number] [address] [place] [address] Care Team Providers Care Typesetting Supervisor Name Role Phone Amy Collier HOSPITALIST-SAMPLE DISPLAY PREPARER Primary Care Provider + Reason for Visit * Reason Comments - July 29 debrievement of left breast tissue Encounter Details Date Type Department Care Team (Late st Contact Info) Description 08/10/2024 3:30 PM EDT Office Visit [facility] Internal Medicine - Family Medicine [address] [place] [address] Dhruv Ortiz, DO [address] [place] [address] Mycobacterium abscessus infection (Primary Dx); Malignant neoplasm of lower-inner quadrant of right breast of female, estrogen receptor positive ([facility]) Social History Tobacco Use Types Packs/Day Years Used Date Smoking Tobacco: Never Passive Smoke Exposure: Past Smokeless Tobacco: Never Alcohol Use Standard Drinks/Week Comments Yes 0 (1 standard drink = 0.6 oz pur e alcohol) Socially [employer] Utilities Answer Date Recorded In the past 12 months has [employer], gas, oil, or water company threatened to shut off [...] week 02/27/2022 How often do you attend [facility] or anabaptist services? More than 4 times per year 02/27/2022 Do you belong to any clubs o r organizations such as yarsani groups, unions, fraternal or athletic groups, or [...] Answer Date Recorded Total Score 0 08/10/2024 [facility] [employer] [facility] [employer] - Occupational Stress [...] Recorded Do you need help finding a [facility] career center and/or a training program? No [...] on file documented as of this encounter Last Filed Vital Signs Vital Sign Reading Time Taken Comments Blood Pressure 100/60 08/10/2024 4:37 PM EDT Pulse 98 08/10/2024 3:51 PM EDT Temperature 36.7 C (98 F) 08/10/2024 3:51 PM EDT Respiratory Rate 20 08/10/2024 3:51 PM EDT Oxygen Saturation 99% 08/10/2024 3:51 PM EDT Inhaled Oxygen Concentration - - Weight 88.6 kg (195 lb 6.4 oz) 08/10/2024 3:51 P M EDT Height 177.8 cm (5' 10 ) 08/10/2024 3:51 PM EDT Body Mass Index 28.04 08/10/2024 3:51 PM EDT documented in this encounter Progress Notes * Dhruv Ortiz, - 08/10/2024 3:30 PM EDT Subjective Patient ID: Yasmin Flannery is a 53 y.o. female. The patient is here today for discharge follow up from hospital. Transition of Care Med Rec completed? Yes Discharged medications: Medications have been reviewed and reconciled with the most recent facilitydischarge document. HPI The following portions of the patient's history were reviewed and updated as appropriate: current medications, past medical history, past surgical history, problem list, and medication reconciliationwas completed including current medication and post discharge medication. 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 This is the 10th debridement she has had for this similar problem. Currently has routine debridements scheduled until any sinus tracts and tunneling are removed. She continues on 4 different IV antibiotics for treatment of the infection. She had no problems or complications while in the hospital, and she says this was really no different than any previous episode. She did just recently start a new chemotherapy agent for her breast cancer (Xeloda), and this is causing some heartburn, but so far has been tolerable. Review of Systems Constitutional: Positive for fatigue. Negative for activity change, appetite change and fever. HENT: Negative. Eyes: Negative for visual disturbance. Respiratory: Negative. Cardiovascular: Negative. Gastrointestinal: Negative. Endocrine: Negative. Genitourinary: Negative. Musculoskeletal: Negative. Skin: Dressing in place over the left breast Neurological: Negative. Psychiatric/Behavioral: Negative. Objective Physical Exam Vitals reviewed. Constitutional: General: She is not in acute distress. Appearance: She is not toxic-appearing. Comments: Overweight HENT: Head: Normocephalic. Right Ear: External ear normal. Left Ear: External ear normal. Nose: Nose normal. Eyes: General: No scleral icterus. Cardiovascular: Rate and Rhythm: Normal rate. Heart sounds: No murmur heard. No gallop. Pulmonary: Effort: Pulmonary effort is normal. Breath sounds: No wheezing or rales. Musculoskeletal: Right lower leg: No edema. Left lower leg: No edema. Skin: General: Skin is warm and dry. Coloration: Skin is not jaundiced. Findings: No bruising. Neurological: Mental Status: She is alert and oriented to person, place, and time. Psychiatric: Mood and Affect: Mood normal. Behavior: Behavior normal. Assessment/Plan Yasmin was seen today for tcm- july 29 debrievement of left breast tissue. Diagnoses and all orders for this visit: Mycobacterium abscessus infection -continue follow-up with wound clinic, home health for IV antibiotic infusions, and plastic surgeryas previously arranged -future debridements are already scheduled Malignant neoplasm of lower-inner quadrant of right breast of female, estrogen receptor positive (CMS-HCC) -continue follow-up with Oncology both locally and at [facility] documented in this encounter Plan of Treatment Upcoming Encounters Date Type Department Care Team (Late st Contact Info) Description 08/29/2024 9:30 AM EDT Office Visit [facility] Plastic and Reconstructive Surgery [address] [facility] [address] [place] [phone] Shereen Smallwood PAN[employer]olas[employer] [address] [facility] [place] [phone] 10/26/2024 8:30 AM EDT Telephone Visit [facility] Gynecology Oncology, A Department of [place] [id number] [facility] [address] [place] [phone] [place] [address] [place] [address], [address] [place], [place] [id number] documented as of this encounter Goals Goal Patient Goal Type Associated Problems Recent Progress Patient-Stated? Author return home General Yes Mariah Gonsalez, RN Note: Evaluation of progress towards goal: progressing, patient will return home at discharge/follow up Count Includes [facility] Wound care clinic Autogenerated Goal Care Plan Autogenerated Problem No Skyla Marie documented as of this encounter Visit Diagnoses Diagnosis Mycobacterium abscessus infection- Primary Malignant neoplasm of lower-inner quadrant of right breast of female, estrogen receptor positive (CMS-HCC) documented in this encounter Additional Health Concerns Active Problems Noted Date Diagnosed Date Autogenerated Problem 08/09/2024 Assessment Noted Time PHQ-9 Depression Total Score: 0 08/11/19 25 3:50 PM EDT documented as of this encounter Care Teams Typesetting Supervisor Relationship Specialty Start Date End Date Amy Collier APRN-SAMPLE DISPLAY PREPARER [address] [place] [address] PCP - General 11/28/16 documented as of this encounter
--- OUTSIDE RECORDS SUMMARY | 2024-08-12 06:02 | XMS_ITS | Encounter Summary ---
Author Organization [facility] tem Address [id number] [address] [place] [address] Care Team Providers Care Housing Project Manager Name Role Phone Amy Collier STRATEGIC CLIENT EXECUTIVE-ROOFING FOREMAN Primary Care Provider + Reason for Visit * Auth/Cert Specialty Diagnoses / Procedures Referred By Jose t Referred To Contact Diagnoses LEFT AXILLA WOUND Procedures DEBRIDEMENT BREAST- AXILLA Jhon Rosado MD [address], [facility] [address] [place] [address] Phone: tel: fax: Referral ID Status Reason Start Date Expiration Date Visits Re quested Visits Authorized [id number] 1 1 Encounter Details Date Type Department Care Team (Late st Contact Info) Description 08/12/2024 6:02 AM EDT - 08/12/2024 12:17 PM EDT Hospital Encounter [facility] Division of [facility] - Surgery [address] [place] [address] Jhon Rosado MD [address] [place] [address] Discharge Disposition: Home Social History Tobacco Use Types Packs/Day Years Used Date Smoking Tobacco: Never Passive Smoke Exposure: Past Smokeless Tobacco: Never Alcohol Use Standard Drinks/Week Comments Not Currently 0 (1 standard drink = 0.6 oz pur e alcohol) [facility] Utilities Answer Date Recorded In the past 12 months has [employer], gas, oil, or water company threatened to [...] often do you attend chur ch or oriental orthodox services? More than 4 times per year 02/27/2022 Do you belong to any clubs o r organizations such as restorationism groups, unions, fraternal or athletic groups, or [...] Answer Date Recorded Total Score 0 08/10/2024 [facility] - Occupational Stress [...] Recorded Do you need help finding a [employer] career center and/or a training program? No [...] Sign Reading Time Taken Comments Blood Pressure 140/100 08/12/2024 12:00 PM EDT Pulse 66 08/12/2024 12:00 PM EDT Temperature 36 C (96.8 F) 08/12/2024 12:00 PM EDT Respiratory Rate 14 08/12/2024 12:0 0 PM EDT Oxygen Saturation 100% 08/12/2024 12: 00 PM EDT Inhaled Oxygen Concentration - - Weight 88.8 kg (195 lb 12.3 oz) 08/12/2024 7:01 AM EDT Height 177.8 cm (5' 10 ) 08/12/2024 7:01 AM EDT Body Mass Index 28.09 08/12/2024 7:01 AM EDT documented in this encounter Discharge Instructions * Discharge Instructions* Brionna Newton RN - 08/12/2024 10:50 AM EDT [facility] Plastic & Reconstructive Surgery [place] [address] [place] [id number] Office Jhon Rosado MD, PhD Marisela Davila, STRATEGIC CLIENT EXECUTIVE-ROOFING FOREMAN Shereen Smallwood PA-C Plastic Surgery Discharge Instructions Okay to resume a regular diet. Continue wound care and antibiotics as previously scheduled. Please take [id number] Tylenol or Motrin for baseline pain control. You already have a prescription for narcotic pain medication (oxycodone) at home to be used for any breakthrough pain, if needed. Okay to apply ice to your surgical site for comfort, if needed. Okay to shower tomorrow, but no tub soaking or swimming until your wound is fully healed. Activity as tolerated. Jhon Rosado MD, PhD [facility] Plastic & Reconstructive Surgery If you had General Anesthesia or Sedation: * DO NOT Drive or operate machinery for 24 hours or engage in any activity that would require judgement. This includes driving, cooking, use of a power mower, saw, etc. *DO NOT Consume alcohol, tranquilizers, sleeping medications, or any non- prescribed medication for 24 hours. *DO NOT Make important decisions or sign any legal documents in the next 24 hours. Have an adult at home to help you tonight. Watch your step as your balance may be slightly off for the next few hours. documented in this encounter Medications at Time of Discharge acetaminophen (TYLENOL) 325 mg tablet Take 2 tablets (650 mg total) by mouth every 6 (six) hours. 30 tablet 07/29/2024 amikacin (AMIKIN) 500 mg/2 mL injection Infuse 3.6 mL (900 mg total) into a venous catheter 3 (three) times a week. 07/14/2024 capecitabine (XELODA) 500 mg chemo tablet Take 3 tablets by mouth 2 (two) times a day 08/03/2024 carvediloL (COREG) 12.5 mg tablet Take 1 tablet (12.5 mg total) by mouth in the morning and 1 tablet (12.5 mg total) before bedtime. 180 tablet 1 07/14/2024 CLOFAZIMINE, BULK, MISC Take 100 mg by mouth in the morning. Capsule for mycobacterial infection. cyanocobalamin 1000 MCG tablet Take 1 tablet (1,000 mcg total) by mouth in the morning. 90 tablet 3 12/10/2023 cyclobenzaprine (FLEXERIL) 10 mg tablet TAKE ONE TABLET BY MOUTH ONCE DAILY IN THE EVENING 30 tablet 11 04/28/2023 docusate sodium (COLACE) 100 mg capsule Take 2 capsules (200 mg total) by mouth daily as needed for constipation. 07/29/2024 ELIQUIS 5 mg tabletIndication s:deep venous thrombosis Take 1 tablet (5 mg total) by mouth in the morning and 1 tablet (5 mg total) before bedtime. Indications: blood clot in a deep vein of the extremities. Blood clot left leg 08/2023. 09/18/2023 FeroSuL 325 mg (65 mg iron) tablet in the morning and in the evening. Take with meals. 08/10/2024 gabapentin (NEURONTIN) 300 mg capsuleIndicatio ns:neuropathic pain Take 1 capsule (300 mg total) by mouth in the morning and at bedtime Indications: neuropathic pain. hydrOXYzine (ATARAX) 25 mg tablet Take 1 tablet (25 mg total) by mouth 3 (three) times a day as needed for itching. 60 tablet 1 05/12/2024 imipenem-cilasta tin (PRIMAXIN) 500 mg injection 08/04/2024 magnesium oxide 400 mg magnesium tabletIndication s:hypomagnesemia Take 400 mg by mouth in the morning. Indications: low amount of magnesium in the blood. naloxone (NARCAN) 4 mg/actuation spray,non-aeroso l nasal spray Administer 1 spray (4 mg total) into alternating nostrils as needed for opioid reversal. 1 each 06/15/2024 omadacycline 150 mg tablet Take 300 mg by mouth in the morning. potassium chloride (KLOR-CON ORAL)Indications :hypokalemia Take 20 mEq by mouth in the morning and 20 mEq before bedtime. Indications: low amount of potassium in the blood. 08/05/2023 prochlorperazine (COMPAZINE) 10 mg tablet 04/25/2024 pyridoxine, vitamin B6, (B-6) 50 mg tablet Take 1 tablet (50 mg total) by mouth in the morning. 03/28/2024 spironolactone (ALDACTONE) 25 mg tablet Take 1 tablet (25 mg total) by mouth in the morning. 90 tablet 1 07/14/2024 documented as of this encounter H&P Notes * Jhon Rosado MD - 08/12/2024 8:30 AM EDT HISTORY AND PHYSICAL INTERVAL NOTE: Yasmin Flannery 1970 [id number] H&P reviewed. The patient was examined and there are no changes to the H&P. My operative plan for today is repeat debridement of left chest wall wound and Mycobacterium infection. Jhon Rosado MD, PhD Source Note - Shereen Smallwood PA-C - 07/29/2024 10:41 AM EDT [facility] Plastic & Reconstructive Surgery [facility] [address] [place] [address] [address] [place] [id number] Office Jhon Rosado MD, PhD Marisela Davila APRN-ESPERANZA Smallwood PA-C Plastic Surgery Inpatient Progress Note Subjective: No acute events overnight. The patient tolerated her dressing change with nursing and pain has beenwell controlled. Objective: Patient is awake, alert and oriented in no acute distress at present. She is lying supine in hospital bed. Pain appears controlled at rest Vitals: 07/29/24 0846 BP: (!) 142/96 Pulse: 69 Resp: Temp: 36.5 ??C (97.7 ??F) SpO2: 97% General: No acute distress, well appearing, nontoxic in appearance HEENT: Normocephalic, atraumatic, CN 2-12 grossly intact, V1-V3 grossly intact, EOMI Chest: Regular rate and rhythm Breasts: Dressing taken down, some slough from the previous alginate dressing that was in place. Noconcerns of active infection, no further skin lesions appreciated on exam. Extremities: Warm and well perfused, neurovascularly intact, SCDs on and running Laboratory: Lab Results Component Value Date WBC 5.9 07/29/2024 HGB 9.9 (L) 07/29/2024 HCT 27.6 (L) 07/29/2024 MCV 92 07/29/2024 PLT 200 07/29/2024 Lab Results Component Value Date GLU 81 07/29/2024 CALCIUM 8.3 (L) 07/29/2024 K 4.0 07/29/2024 CO2 27 07/29/2024 BUN 10 07/29/2024 CREATININE 0.77 07/29/2024 Pre albumin: 19 Microbiology Results Procedure Component Value Units Date/Time AFB culture concentrated includes AFB smear [[id number]] Collected: 07/27/24 1505 Specimen: Tissue from Breast, Left Updated: 07/28/24 1103 AFB SMEAR No Acid Fast Bacili (Concentrated Smear) AFB culture concentrated includes AFB smear [[id number]] Collected: 07/27/24 1503 Specimen: Tissue from Breast, Left Updated: 07/28/24 1101 AFB SMEAR No Acid Fast Bacili (Concentrated Smear) Assessment: Yasmin Flannery is a 53 y.o. female Post-Operative Day: 2 - s/p Procedure(s): DEBRIDEMENT BREAST (Left) - Wound Class: Dirty or Infected - Incision Closure: No Layers Closed / Incision Left Open In summary, Overall, the patient is doing well with no apparent complications. Plan: - Pain well controlled with Tylenol, oxycodone, Toradol, - Tolerating a regular diet (no caffeine, chocolate or nicotine) - Optimize nutrition with protein supplementation at every meal - Patient may wear abdominal binder on POD#2 for comfort when ambulating - Continue subcutaneous Lovenox and SCDs for DVT prophylaxis okay to restart Eliquis on Thursday - Continue IV regimen: AFB cultures pending. Amikacin, clofazimine, imipenem, omadacycline - . Will place outpatient referral for wound Care Clinic twice a week at which time they can perform silver dressing changes for a 24 hour duration. - Ok for discharge today All questions were answered to her satisfaction. She was counseled regarding my impressions, instructions for management and the importance of compliance with treatment. 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; history of right breast cancer status post bilateral mastectomies and tissue admitting interviewer reconstruction; history of radiation therapy to right chest wall; chronic kidney disease; chronic anemia Postoperative Diagnoses: 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; history of right breast cancer status post bilateral mastectomies and tissue admitting interviewer reconstruction; history of radiation therapy to right chest wall; chronic kidney disease; chronic anemia Procedure Performed: Excisional debridement of left chest wall wound including nonviable skin, subcutaneous tissue, fascia, cicatrix, granulation tissue and chronic granulomatous material associated with known Mycobacterium abscessus infection (15 x 23 cm) Attending Surgeon: Jhon Rosado MD, PhD Aquatics Assistant Department Head Surgeon: OC Rutherford Steiner was the assistant director of security on this case as no other qualified person was available. The bilingual medical assistant provided exposure, retraction, hemostasis, dissection and expedited the wound closure. It was not possible to perform this procedure without assistance because the attending surgeon would be unable to adequately and safely visualize the surgical site for dissection, obtain hemostasis and complete all the necessary steps of the procedure without significantly increasing the time required to complete it and the risk of complications. Anesthesia: Monitored anesthesia care with local Estimated Blood Loss: Minimal Intravenous Fluids: 800 mL crystalloid Urine Output: None Drains: None Specimens: Deep tissue from left chest wall wound for routine culture/sensitivity Implants: None Complications: None Indications for Procedure: Yasmin Flannery is a 53-year-old female with a past medical history of asthma, hypertension, osteoarthritis, chronic kidney disease and chronic anemia who presents with a chronic open wound on her left chest wall in the setting of known mycobacterium abscessus infection.She has a history of right breast cancer status post bilateral mastectomies and tissue admitting interviewer allison nstruction. She completed postmastectomy radiation therapy to her right chest wall. Secondary to her mycobacterium infection, her left breast tissue admitting interviewer had to be previously removed along with her chemotherapy port. She remains on multiple intravenous antibiotics per Infectious Disease recommendations. Her left chest wall wound has required serial debridements over the past several months inorder to keep her mycobacterium infection under control. She is currently managing her wound with wet-to-dry dressing changes twice daily and the wound itself continues to demonstrate signs of interval healing with new pink granulation tissue formation, but during a clinic appointment this past week she was found to have a new area of sinus tract formation along her left lateral chest wall at a previous drain insertion site. She otherwise remains afebrile, hemodynamically stable and nontoxic inappearance. She is scheduled today for repeat debridement of her left chest wall wound in the operating room including unroofing of this new sinus tract on her left lateral chest wall. Her wound willbe left open postoperatively and she will be continued on wet-to-dry dressing changes. I will obtain repeat intraoperative cultures to help guide ongoing antimicrobial therapy. The risks, benefits, alternatives and possible complications of this procedure were explained in detail to the patient. She expressed a reasonable understanding of the procedure and its associated risks. She was allowed toask questions, which were answered to her satisfaction. She agreed to proceed and written informed consent was obtained. Details of Procedure: The patient was met in the preoperative holding area where the appropriate surgical site was marked and the consent was affirmed. She was transported to the operating theater and placed supine on the operating stretcher. After a verification was performed, intravenous sedationwas administered without incident. The surgical site was injected with 10 mL total of 1% lidocaine containing 1 100,000 epinephrine. All pressure points and bony prominences were adequately padded. The patient remains on scheduled intravenous antimicrobial therapy as an outpatient. Sequential compression devices were placed on both lower extremities. The patient's left chest wall and upper abdomen were prepped and draped in the usual sterile fashion. A robust surgical time-out was completed verifying the correct patient, site of operation and procedure to be performed. I began the procedure by closely examining the chronic open wound on the patient's left chest wall.The initial wound size measured 10 x 23 cm, which was smaller in size compared to prior examination. The wound base primarily consisted of interval formation of new pink granulation tissue. There wasno marlo purulence or signs of cellulitic infection. There was no exposed bone at the wound base. Within the most lateral aspect of the wound, there was a new sinus tract that extended below the inferior wound margin and connected with a previous drain insertion site along the lateral chest wall. Ipassed a large curette from the drain insertion site into the left chest wall wound and then unroofed the overlying skin bridge with a 10. Blade, which created a single large wound consisting of the previous drain insertion site and the chronic left chest wall wound. The new sinus tract was noted to contain a moderate amount of chronic granulomatous material consistent with known mycobacterium abscessus infection. There were also a few smaller sinus tracts extending from the larger sinus tract both medially and laterally into the surrounding subcutaneous tissues. All of the sinus tracts were sharply debrided using a large curette and bony rongeur removing all of the chronic granulomatous material and nonviable subcutaneous tissue. All of the debrided tissue was passed off the operative fie ld and discarded as surgical waste. Next, I sharply debrided the entire wound base of the left chest wall wound including the removal of all loose pieces of nonviable skin, subcutaneous tissue, fascia, granulation tissue and cicatrix using a combination of 10. Blade, large curette, bony rongeur, Bovie electrocautery and curved Wild scissors. Debridement was continued until I encountered a healthywound bed of well-vascularized tissue with bright red bleeding. The final wound size measured 15 x 23 cm. The wound was copiously irrigated with saline solution. Hemostasis was assured. Following today's debridement, the left chest wall wound appeared very clean with no evidence of residual necrotic tissue or mycobacterium infection. Using a fresh bony rongeur, I obtained a sample of post debridement deep tissue laterally from the wound base near the location of the new sinus tract and this tissue was passed off the operative field and sent for routine culture/sensitivity. The wound was then p acked with saline moistened Kerlix, buttressed with multiple abdominal pads and the patient was placed in a breast binder for postoperative support and gentle compression. This completed the procedure. All instrument, needle and sponge counts were correct x2 at the completion of the procedure. The patient tolerated the procedure well with no immediate complications. The patient was awoken from anesthesia and transferred to the recovery room in stable condition. I was present for the entire procedure. Jhon Rosado MD, PhD Evidence of infection was visualized at the Fascia and/or muscle level and was visualized at time of surgery as evidence by chronic granulomatous material consistent w/ known Mycobacterium abscessus infection. * Brief Op Note - Jhon Rosado MD - 08/12/2024 10:21 AM EDT Brief Post-op Note NAME: Yasmin Flannery : 1970 PROCEDURE DATE: 08/12/2024 Surgeon: Surgeons and Role: * Jhon Rosado MD - Primary Assistants: Mary Steiner RN Staff: Butadiene Compressor Operator Primary: Susan Fierro RN Scrub Person: ST [place] Butadiene Compressor Operator Secondary: Mary Steiner RN Pre-op Diagnosis: LEFT AXILLA WOUND Procedure Details: Procedure(s): DEBRIDEMENT LEFT CHEST WALL WOUND (Left) - Wound Class: Dirty or Infected - Incision Closure: No Layers Closed / Incision Left Open Anesthesia Type: Monitored Anesthesia Care w/ local (10 ml total of 1% lidocaine containing 1:100,000 epinephrine) * No Diagnosis Codes entered * Complications: None Additions (Drains, Specimens, Implants): Drains: * No LDAs found * Specimens: ID Type Source Tests Collected by Time 1 : deep tissue from left chest wall wound (aerobic, anaerobic, gram stain, fungal) Tissue Chest Wall, Left ANAEROBIC CULTURE, FUNGAL CULTURE INCLUDES FUNGAL SMEAR, TISSUE CULTURE Jhon Rosado MD 08/12/2024 1040 Implants: Nothing was implanted during the procedure Estimated Blood Loss: * No values recorded between 08/12/2024 10:21 AM and 08/12/2024 10:48 AM * OB Surgical Procedure Blood Loss: Anesthesia EBL: * No values recorded between 08/12/2024 10:21 AM and 08/12/2024 10:48 AM * OB QBL: * No values recorded between 08/12/2024 10:21 AM and 08/12/2024 10:48 AM * Total IV Fluids: Refer to anesthesia record Condition: good Findings: Initial wound size 10 x 23 cm, new pink granulation tissue at wound base, excised new sinus tract containing chronic granulomatous material at previous drain site located along lateral chest wall and below the wound (sent new cultures), final wound size 15 x 23 cm, packed wound w/ saline-moistened Kerlix Evidence of infection was visualized at the Fascia and/or muscle level and was visualized at time of surgery as evidence by chronic granulomatous material consistent w/ known Mycobacterium infection. documented in this encounter Plan of Treatment Upcoming Encounters Date Type Department Care Team (Late st Contact Info) Description 08/29/2024 9:30 AM EDT Office Visit [facility] Plastic and Reconstructive Surgery [address] [facility] [address] [place] [address] Shereen Smallwood, PA-C [address] [facility] [place] [address] 10/26/2024 8:30 AM EDT Telephone Visit [facility] Gynecology Oncology, A Department of [facility] [address] [facility] [address] [place] [id number] Raymond Sepulveda MD [address] [facility] [place] [address] Pending Results Name Type Priority Associated Diagnoses Date /Time Fungal culture includes fungal smear Microbiology Routine 08/12/2024 10:40 AM EDT documented as of this encounter Goals Goal Patient Goal Type Associated Problems Recent Progress Patient-Stated? Author return home General Yes Mariah Gonsalez RN Note: Evaluation of progress towards goal: progressing, patient will return home at discharge/follow up [facility] Wound care clinic Autogenerated Goal Care Plan Autogenerated Problem No Skyla Marie documented as of this encounter Procedures Procedure Name Priority Date/Time Associated Diagnosis Comments TISSUE CULTURE Routine 08/12/2024 10:40 AM EDT FUNGAL CULTURE INCLUDES FUNGAL SMEAR Routine 08/12/2024 10:40 AM EDT ANAEROBIC CULTURE Routine 08/12/2024 10: 40 AM EDT DEBRIDEMENT BREAST 08/12/2024 10 :21 AM EDT LEFT AXILLA WOUND Case Notes (EPIC 53) REQ 30 WORKING-RAJNI, GAVE 60 WORKING- documented in this encounter Results * (ABNORMAL) Tissue culture includes gram stain (08/12/2024 10:40 AM EDT) CULTURE RESULTS Rare Carbapenem Resistant Pseudomonas aeruginosa(A) 08/16/2024 9:32 AM EDT [facility] GRAM STAIN 0 White Blood Cells/LPF 08/16/2024 9:32 AM EDT [facility] GRAM STAIN 0 Squamous Epithelial Cells/LPF 08/16/2024 9:32 AM EDT [facility] GRAM STAIN No organisms seen 08/16/2024 9:32 AM EDT [facility] Tissue (Chest Wall, Left) 08/12/2024 10:40 AM EDT 08/12/2024 11:31 AM EDT Comment:Pre-op diagnosis: LEFT AXILLA WOUND Narrative [facility] - 08/16/2024 9:32 AM EDT Growth Observed At 2nd Day Organism Antibiotic Method Susceptibility Carbapenem Resistant Pseudomonas aeruginosa PIPERACIL/TAZOBACTAM 8.0: Susceptible Carbapenem Resistant Pseudomonas aeruginosa IMIPENEM >=16.0: Resistant Comment:This is an a ppended report. These results have been appended to a previously preliminary verified report. Carbapenem Resistant Pseudomonas aeruginosa Meropenem 4.0: Intermediate Carbapenem Resistant Pseudomonas aeruginosa Tobramycin <=1.0: Susceptible Carbapenem Resistant Pseudomonas aeruginosa Ciprofloxacin =0.25: Susceptible Carbapenem Resistant Pseudomonas aeruginosa Levofloxacin 0.5: Susceptible Carbapenem Resistant Pseudomonas aeruginosa Cefepime Susceptible Carbapenem Resistant Pseudomonas aeruginosa KPC (CARBAPENEMASE) Negative Carbapenem Resistant Pseudomonas aeruginosa [id number] (CARBAPENEMASE) Negative Carbapenem Resistant Pseudomonas aeruginosa VIM (CARBAPENEMASE) Negative Carbapenem Resistant Pseudomonas aeruginosa IMP (CARBAPENEMASE) Negative Carbapenem Resistant Pseudomonas aeruginosa NDM (CARBAPENEMASE) Negative Comment:Carbapenem Resistant Organism (GLAZIER ARTIST). The CARBA5 test only detects the 5 most prevalent carbapenemase producing mechanisms in the [place] Other carbapenemase producing mechanisms not detected by this test are rare. us Jhon Rosado MD MICROBIOLOGY - [employer] L ORDERABLES Final Result Performing Organization Address City/[facility]/ZIP Co de Phone Number [facility] [address] [place] [address], * Anaerobic culture (08/12/2024 10:40 AM EDT) CULTURE RESULTS NO GROWTH 5 DAYS 08/17/2024 7:01 AM EDT [facility] Tissue (Chest Wall, Left) 08/12/2024 10:40 AM EDT 08/12/2024 11:31 AM EDT Comment:Pre-op diagnosis: LEFT AXILLA WOUND Jhon Rosado MD MICROBIOLOGY - [employer] L ORDERABLES Final Result Performing Organization Address [facility]/ZIP Co de Phone Number [facility] [address] [place] [address], [place] [phone] documented in this encounter Visit Diagnoses Not on filedocumented in this encounter Administered Medications Inactive Administered Medications - up to 3 most recent administrations Medication Order MAR Action Action Date Dose Rate Site acetaminophen (TYLENOL EXTRA STRENGTH) tablet 1,000 mg 1,000 mg, oral, Once, On Thu08/12/24 at 0745, For 1 dose, Pre-op Given 08/12/2024 7:45 AM EDT 1,000 mg fentaNYL (SUBLIMAZE) injection 25 mcg 25 mcg, intravenous, Every 10 min PRN, pain scale 1-6, Starting on Thu08/12/24 at 0729, Pre-op, Maximum fentaNYL (SUBLIMAZE) dose is 100 mcg Look-alike/sound-alike medication - verify indication for use. Given 08/12/2024 11:11 AM EDT 25 mcg fentaNYL (SUBLIMAZE) injection 25 mcg 25 mcg, intravenous, Every 5 min PRN, Pain Scale 1-5, Starting on Thu08/12/24 at 1114, PACU (only), Up to a maximum dose of 150 mcg. Look-alike/sound-alike medication - verify indication for use. fentaNYL (SUBLIMAZE) injection 50 mcg 50 mcg, intravenous, Every 5 min PRN, Pain Scale 6-10, Starting on Thu08/12/24 at 1114, PACU (only), Up to a maximum dose of 150 mcg Look-alike/sound-alike medication - verify indication for use. ipratropium-albuteroL (DUONEB) 0.5 mg-3 mg(2.5 mg base)/3 mL nebulizer solution 3 mL 3 mL, nebulization, Once as needed, wheezing, Starting on Thu08/12/24 at 1114, For 1 dose, PACU (only), Implement INPATIENT/ED Bronchodilator Clinical Practice Guidelines? Yes lactated ringers infusion 100 mL/hr, intravenous, Continuous, Starting on Thu08/12/24 at 0730, Pre-op, If fluid restriction is not indicated, infuse at a rate up to 5 mL/kg/hr not to exceed the total replacement volume (2 ml/kg/hr) from the time NPO status was initiated. Restarted 08/12/2024 10:51 AM EDT Continued by Anesthesia 08/12/2024 10:21 AM EDT 100 mL/hr New Bag 08/12/2024 7:30 AM EDT 100 mL/hr 100 mL/hr midazolam (VERSED) injection 2 mg 2 mg, intravenous, Once, On Thu08/12/24 at 0745, For 1 dose, Pre-op, Indication: Sedation Given 08/12/2024 7:45 AM EDT 2 mg morphine injection 2 mg 2 mg, intravenous, Every 5 min PRN, for Pain Scale 1-5 if pain not controlled by fentanyl, Starting on Thu08/12/24 at 1114, PACU (only), Up to a maximum dose of 12 mg Look-alike/sound-alike medication - verify indication for use. morphine injection 4 mg 4 mg, intravenous, Every 5 min PRN, Pain Scale 6-10 if pain not controlled by fentanyl, Starting on Thu08/12/24 at 1114, PACU (only), Up to a maximum dose of 12 mg Look-alike/sound-alike medication - verify indication for use. naloxone (NARCAN) injection 0.1 mg 0.1 mg, intravenous, As needed, respiratory depression, Starting on Thu08/12/24 at 1114, For 4 doses, PACU (only), Maximum dose: 0.4 mg Look-alike/sound-alike medication - verify indication for use. oxyCODONE (ROXICODONE) immediate release tablet 10 mg 10 mg, oral, Every 4 hours PRN, severe pain - pain scale 7-10, Starting on Thu08/12/24 at 1114, PACU (only), Look-alike/sound-alike medication - verify indication for use. Immediate release. oxyCODONE (ROXICODONE) immediate release tablet 5 mg 5 mg, oral, Every 4 hours PRN, pain scale 1-6, Starting on Thu08/12/24 at 1114, PACU (only), Look-alike/sound-alike medication - verify indication for use. Immediate release. Given 08/12/2024 11:25 AM EDT 5 mg scopolamine (TRANSDERM-SCOP) 1 mg/3 days 1 patch 1 patch, transdermal, Administer over 24 Hours, Once, On Thu08/12/24 at 0745, For 1 dose, Pre-op, Patches are applied behind ear. Remove previous patch, before applying new. Remove patch prior to MRI procedure as serious jimenez may occur. A new patch must be reapplied to an alternate site. Medication Applied 08/12/2024 7:45 AM EDT 1 patch Behind Left Ear documented in this encounter Active and Recently Administered Medications Times are shown in EDT. Scheduled Medication Order 08/10/2024 08/11/2024 08/12/2024 acetaminophen (TYLENOL EXTRA STRENGTH) tablet 1,000 mg (COMPLETED) 1,000 mg, oral, Once, On Thu08/12/24 at 0745, For 1 dose, Pre-op 0745 (Given - Provid er: Dorothy Pete RN) midazolam (VERSED) injection 2 mg (COMPLETED) 2 mg, intravenous, Once, On Thu08/12/24 at 0745, For 1 dose, Pre-op, Indication: Sedation 0745 (Given - Provid er: Dorothy Pete RN - Comment: given at 0802) scopolamine (TRANSDERM-SCOP) 1 mg/3 days 1 patch 1 patch, transdermal, Administer over 24 Hours, Once, On Thu08/12/24 at 0745, For 1 dose, Pre-op, Patches are applied behind ear. Remove previous patch, before applying new. Remove patch prior to MRI procedure as serious jimenez may occur. A new patch must be reapplied to an alternate site. 0745 (Medication Jaison lied - Provider: Dorothy Pete RN)1217 (Due: Medication Removed - Provider: Automatic Discharge Provider - Comment: Time automatically adjusted from order being discontinued) Continuous Medication Order 08/10/2024 08/11/2024 08/12/2024 lactated ringers infusion (CANCELED) 100 mL/hr, intravenous, Continuous, Starting on Thu08/12/24 at 0730, Pre-op, If fluid restriction is not indicated, infuse at a rate up to 5 mL/kg/hr not to exceed the total replacement volume (2 ml/kg/hr) from the time NPO status was initiated. 0730 (New Bag - Prov ider: Dorothy Pete RN)1021 (Continued by Anesthesia - Provider: [employer])1050 (Paused - Provider: [employer] - Comment: Switch to gravity)1051 (Restarted - Provider: [employer])1127 (Due: Order Ending - Provider: Automatic Transfer Provider - Comment: [Order ends at this time. Document the following action when infusion is complete: Stop Bag]) PRN Medication Order 08/10/2024 08/11/2024 08/12/2024 fentaNYL (SUBLIMAZE) injection 25 mcg (CANCELED)(Linked Group 1) 25 mcg, intravenous, Every 10 min PRN, pain scale 1-6, Starting on Thu08/12/24 at 0729, Pre-op, Maximum fentaNYL (SUBLIMAZE) dose is 100 mcg Look-alike/sound-alike medication - verify indication for use. 1111 (Given - Provid er: Brionna Newton RN) fentaNYL (SUBLIMAZE) injection 25 mcg 25 mcg, intravenous, Every 5 min PRN, Pain Scale 1-5, Starting on Thu08/12/24 at 1114, PACU (only), Up to a maximum dose of 150 mcg. Look-alike/sound-alike medication - verify indication for use. fentaNYL (SUBLIMAZE) injection 50 mcg 50 mcg, intravenous, Every 5 min PRN, Pain Scale 6-10, Starting on Thu08/12/24 at 1114, PACU (only), Up to a maximum dose of 150 mcg Look-alike/sound-alike medication - verify indication for use. ipratropium-albuteroL (DUONEB) 0.5 mg-3 mg(2.5 mg base)/3 mL nebulizer solution 3 mL 3 mL, nebulization, Once as needed, wheezing, Starting on Thu08/12/24 at 1114, For 1 dose, PACU (only), Implement INPATIENT/ED Bronchodilator Clinical Practice Guidelines? Yes lidocaine-EPINEPHrine (XYLOCAINE W/EPI) 1 %-1:310222 injection (CANCELED) As needed, Starting on Thu08/12/24 at 1043, Intra-op 1043 (Given - Provid er: Jhon Rosado MD) morphine injection 2 mg 2 mg, intravenous, Every 5 min PRN, for Pain Scale 1-5 if pain not controlled by fentanyl, Starting on Thu08/12/24 at 1114, PACU (only), Up to a maximum dose of 12 mg Look-alike/sound-alike medication - verify indication for use. morphine injection 4 mg 4 mg, intravenous, Every 5 min PRN, Pain Scale 6-10 if pain not controlled by fentanyl, Starting on Thu08/12/24 at 1114, PACU (only), Up to a maximum dose of 12 mg Look-alike/sound-alike medication - verify indication for use. naloxone (NARCAN) injection 0.1 mg 0.1 mg, intravenous, As needed, respiratory depression, Starting on Thu08/12/24 at 1114, For 4 doses, PACU (only), Maximum dose: 0.4 mg Look-alike/sound-alike medication - verify indication for use. oxyCODONE (ROXICODONE) immediate release tablet 10 mg(Linked Group 2) 10 mg, oral, Every 4 hours PRN, severe pain - pain scale 7-10, Starting on Thu08/12/24 at 1114, PACU (only), Look-alike/sound-alike medication - verify indication for use. Immediate release. 1125 (See Alternativ e - Provider: Brionna Newton RN) oxyCODONE (ROXICODONE) immediate release tablet 5 mg(Linked Group 2) 5 mg, oral, Every 4 hours PRN, pain scale 1-6, Starting on Thu08/12/24 at 1114, PACU (only), Look-alike/sound-alike medication - verify indication for use. Immediate release. 1125 (Given - Provid er: Brionna Newton RN) sodium chloride 0.9% (NS) irrigation bottle (CANCELED) As needed, Starting on Thu08/12/24 at 1026, Intra-op 1026 (Given - Provid er: Jhon Rosado MD) Linked Groups Order Group 1: fentaNYL (SUBLIMAZE) injection 25 mcg (CANCELED)Jump to med 25 mcg, intravenous, Every 10 min PRN, pain scale 1-6, Starting on Thu08/12/24 at 0729, Pre-op, Maximum fentaNYL (SUBLIMAZE) dose is 100 mcg Look-alike/sound-alike medication - verify indication for use. Or fentaNYL (SUBLIMAZE) injection 50 mcg (CANCELED) 50 mcg, intravenous, Every 10 min PRN, severe pain - pain scale 7-10, Starting on Thu08/12/24 at 0729, Pre-op, Maximum fentaNYL (SUBLIMAZE) dose is 100 mcg Look-alike/sound-alike medication - verify indication for use. Group 2: oxyCODONE (ROXICODONE) immediate release tablet 5 mgJump to med 5 mg, oral, Every 4 hours PRN, pain scale 1-6, Starting on Thu08/12/24 at 1114, PACU (only), Look-alike/sound-alike medication - verify indication for use. Immediate release. Or oxyCODONE (ROXICODONE) immediate release tablet 10 mgJump to med 10 mg, oral, Every 4 hours PRN, severe pain - pain scale 7-10, Starting on Thu08/12/24 at 1114, PACU (only), Look-alike/sound-alike medication - verify indication for use. Immediate release. documented in this encounter Additional Health Concerns Active Problems Noted Date Diagnosed Date Autogenerated Problem 08/09/2024 Assessment Noted Time PHQ-9 Depression Total Score: 0 08/11/19 25 3:50 PM EDT documented as of this encounter Care Teams Housing Project Manager Relationship Specialty Start Date End Date Amy Collier, STRATEGIC CLIENT EXECUTIVE-ROOFING FOREMAN [address] [place] [address] PCP - General 11/28/16 documented as of this encounter
--- OUTSIDE RECORDS SUMMARY | 2024-08-12 09:10 | XMS_ITS | Encounter Summary ---
Author Organization [facility] Exclusively.in [facility] tem Address [id number] [address] [place] [address] Care Team Providers Care Court Of Appeals Judge Name Role Phone Amy Collier GROUP FITNESS ASSISTANT DEPARTMENT HEAD-MEDICAL PRACTICE ADMINISTRATOR Primary Care Provider + Reason for Visit * Auth/Cert Specialty Diagnoses / Procedures Referred By Jose t Referred To Contact Diagnoses LEFT AXILLA WOUND Procedures DEBRIDEMENT BREAST- AXILLA Jhon Rosado MD [address], [facility] [address] [place] [address] Phone: tel: fax: Referral ID Status Reason Start Date Expiration Date Visits Re quested Visits Authorized [id number] 1 1 Encounter Details Date Type Department Care Team (Late st Contact Info) Description 08/12/2024 9:10 AM EDT - 08/12/2024 10:40 AM EDT Surgery [facility] a Division of [facility] - Surgery [address] [place] [address] Jhon Rosado MD [address], [facility] [address] [place] [address] DEBRIDEMENT LEFT CHEST WALL WOUND Surgery Details Date/Time Status Location OR Service Patient Class Case Cl ass Case Type Trauma Case? 08/12/2024 9:10 AM Posted [facility] OR [address] [place] [address] Outpatient Surgery Elective Panel 1 Procedure LRB Anes Op Region Wound Class Comments DEBRIDEMENT LEFT CHEST WALL WOUND Left Monitored Anesthesia Care Dirty or Infected Surgeon Surgeon Role Service Panel Jhon Rosado MD Primary Plastics 1 Case Notes (EPIC 53) REQ 30 WORKING-RAJNI, GAVE 60 WORKING- documented in this encounter Social History Tobacco Use Types Packs/Day Years Used Date Smoking Tobacco: Never Passive Smoke Exposure: Past Smokeless Tobacco: Never Alcohol Use Standard Drinks/Week Comments Not Currently 0 (1 standard drink = 0.6 oz pur e alcohol) [facility] Utilities Answer Date Recorded In the past 12 months has e electric, gas, oil, or water company threatened [...] often do you attend chur ch or amish services? More than 4 times per year 02/27/2022 Do you belong to any clubs o r organizations such as amish groups, unions, fraternal [...] Answer Date Recorded Total Score 0 08/10/2024 [facility] of Occupat ional Health - Occupational Stress [...] Recorded Do you need help finding a [facility] and/or a training program? No 02/27/2022 [...] Sign Reading Time Taken Comments Blood Pressure 129/106 08/12/2024 7:01 AM EDT Pulse 82 08/12/2024 7:01 AM EDT Temperature 36 C (96.8 F) 08/12/2024 7:01 AM EDT Respiratory Rate 16 08/12/2024 7:01 AM EDT Oxygen Saturation 95% 08/12/2024 8:40 AM EDT Inhaled Oxygen Concentration - - Weight 88.8 kg (195 lb 12.3 oz) 08/12/2024 7:01 AM EDT Height 177.8 cm (5' 10 ) 08/12/2024 7:01 AM EDT Body Mass Index 28.09 08/12/2024 7:01 AM EDT documented in this encounter Discharge Instructions * Discharge Instructions* Brionna Newton RN - 08/12/2024 10:50 AM EDT [facility] Plastic & Reconstructive Surgery [address] [place] [id number] Office Jhon Rosado MD, PhD Marisela Davila APRN-ESPERANZA Smallwood PA-C Plastic Surgery Discharge Instructions Okay to resume a regular diet. Continue wound care and antibiotics as previously scheduled. Please take ilff-[id number] Tylenol or Motrin for baseline pain control. You already have a prescription for narcotic pain medication (oxycodone) at home to be used for any breakthrough pain, if needed. Okay to apply ice to your surgical site for comfort, if needed. Okay to shower tomorrow, but no tub soaking or swimming until your wound is fully healed. Activity as tolerated. Jhon Rosado MD, PhD [facility] Plastic & Reconstructive Surgery If you [...] of this encounter H&P Notes * Jhon oRsado MD - 08/12/2024 8:30 AM EDT HISTORY AND PHYSICAL INTERVAL NOTE: Yasmin Flannery 1970 [id number] H&P reviewed. The patient was examined and there are no changes to the H&P. My operative plan for today is repeat debridement of left chest wall wound and Mycobacterium infection. Jhon Rosado MD, PhD Source Note - Shereen Smallwood PA-C - 07/29/2024 10:41 AM EDT [facility] Plastic & Reconstructive Surgery [facility] [address] [facility] [address] [place] [address] Office Jhon Rosado MD, PhD Marisela Davila, GROUP FITNESS ASSISTANT DEPARTMENT HEAD-MEDICAL PRACTICE ADMINISTRATOR Shereen Smallwood PA-C Plastic Surgery Inpatient Progress [...] Date/Time AFB culture concentrated includes AFB smear [[id number]] Collected: 07/27/24 1505 Specimen: Tissue from Breast, Left Updated: 07/28/24 1103 AFB SMEAR No Acid Fast Bacili (Concentrated Smear) AFB culture concentrated includes AFB smear [[id number]] Collected: 07/27/24 1503 Specimen: Tissue from Breast, [...] cancer status post bilateral mastectomies and tissue administration physician reconstruction; history of radiation therapy to right chest wall; chronic kidney disease; chronic anemia Postoperative Diagnoses: 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 Steiner was the assistant store manager on this case as no other qualified person was available. The mailing machine assistant provided exposure, retraction, hemostasis, dissection and [...] cancer status post bilateral mastectomies and tissue administration physician allison nstruction. She completed postmastectomy radiation therapy to her right chest wall. Secondary to her mycobacterium infection, her left breast tissue administration physician had to be previously removed along with [...] - Primary Assistants: Mary Steiner RN Staff: Larder Cook Primary: Susan Fierro RN Scrub Person: ST Weston Larder Cook Secondary: Mary Steiner RN Pre-op Diagnosis: LEFT [...] Description 08/29/2024 9:30 AM EDT Office Visit [facility] Plastic and Reconstructive Surgery [facility] [address] [facility] [address] [place] [address] Shereen Smallwood PA-C [facility] [address], [facility] [address] [place] [address] 10/26/2024 8:30 AM EDT Telephone Visit [facility] Gynecology Oncology, A Department of [place] [address] [facility] [address] [place] [address] Raymond Sepulveda MD [address] [place] [address], [address] [place] [address] Pending Results Name Type Priority Associated Diagnoses Date /Time Fungal culture includes fungal smear Microbiology Routine 08/12/2024 10:40 AM EDT documented as of this encounter Goals Goal Patient Goal Type Associated Problems Recent Progress Patient-Stated? Author return home General Yes Mariah Gonsalez, RN Note: Evaluation of progress towards goal: progressing, patient will return home at discharge/follow up [facility] W[facility] Autogenerated Goal Care Plan [...] Resistant Pseudomonas aeruginosa(A) 08/16/2024 9:32 AM EDT [facility] GRAM STAIN 0 White Blood Cells/LPF 08/16/2024 9:32 AM EDT [facility] GRAM STAIN 0 Squamous Epithelial Cells/LPF 08/16/2024 9:32 AM EDT [facility] GRAM STAIN No organisms seen 08/16/2024 9:32 AM EDT [facility] Tissue (Chest Wall, Left) 08/12/2024 10:40 AM EDT 08/12/2024 11:31 AM EDT Comment:Pre-op diagnosis: LEFT AXILLA WOUND Narrative [facility] - 08/16/2024 9:32 AM EDT [...] KPC (CARBAPENEMASE) Negative Carbapenem Resistant Pseudomonas aeruginosa [id number] (CARBAPENEMASE) Negative Carbapenem Resistant Pseudomonas aeruginosa VIM (CARBAPENEMASE) Negative Carbapenem Resistant Pseudomonas aeruginosa IMP (CARBAPENEMASE) Negative Carbapenem Resistant Pseudomonas aeruginosa NDM (CARBAPENEMASE) Negative Comment:Carbapenem Resistant Organism (HOUSEKEEPING/LAUNDRY). The CARBA5 test only detects the 5 most prevalent carbapenemase producing mechanisms in the [place] Other carbapenemase producing mechanisms not detected by this test are rare. us Jhon Rosado MD MICROBIOLOGY - TROD Medical L ORDERABLES Final Result Performing Organization Address City/[facility]/ZIP Co de Phone Number [facility] [address] [place] [address], [place] [phone] * Anaerobic culture (08/12/2024 10:40 AM EDT) CULTURE RESULTS NO GROWTH 5 DAYS 08/17/2024 7:01 AM EDT [facility] Tissue (Chest Wall, Left) 08/12/2024 10:40 AM EDT 08/12/2024 11:31 AM EDT Comment:Pre-op diagnosis: LEFT AXILLA WOUND us Jhon Rosado MD MICROBIOLOGY - GENERA L ORDERABLES Final Result Performing Organization Address City/[facility] Co de Phone Number [facility] [address] [place] [address], [place] [phone] documented in this encounter Visit Diagnoses Not [...] 7:30 AM EDT 100 mL/hr 100 mL/hr lidocaine-EPINEPHrine (XYLOCAINE W/EPI) 1 %-1:066116 injection As needed, Starting on Thu08/12/24 at 1043, Intra-op Given 08/12/2024 10:43 AM EDT 6 mL Operative Site midazolam (VERSED) injection 2 mg 2 mg, [...] AM EDT 1 patch Behind Left Ear sodium chloride 0.9% (NS) irrigation bottle As needed, Starting on Thu08/12/24 at 1026, Intra-op Given 08/12/2024 10:26 AM EDT 1,000 mL Operative Site documented in this encounter Active and Recently [...] Practice Guidelines? Yes lidocaine-EPINEPHrine (XYLOCAINE W/EPI) 1 %-1:894531 injection (CANCELED) As needed, Starting on Thu08/12/24 [...] documented as of this encounter Care Teams Court Of Appeals Judge Relationship Specialty Start Date End Date Amy Collier APRN-MEDICAL PRACTICE ADMINISTRATOR [address] [facility] [place] [address] PCP - General 11/28/16 documented as of this encounter
--- OUTSIDE RECORDS SUMMARY | 2024-08-12 10:21 | XMS_ITS | Encounter Summary ---
Author Organization [facility] [employer] [place] [facility] tem Address [facility] [id number] [address] [place] [address] Care Team Providers Care Railroad Watchman Name Role Phone Amy Collier ALTERNATIVE EDUCATION TEACHER-REPAIRER SASH AND DOOR Primary Care Provider + Reason for Visit * Auth/Cert Specialty Diagnoses / Procedures Referred By Jose t Referred To Contact Diagnoses LEFT AXILLA WOUND Procedures DEBRIDEMENT BREAST- AXILLA Jhon Rosado MD [address] [facility] [address] [address] Phone: tel: fax: Referral ID Status Reason Start Date Expiration Date Visits Re quested Visits Authorized [id number] 1 1 Encounter Details Date Type Department Care Team (Late st Contact Info) Description 08/12/2024 10:21 AM EDT Anesthesia Event [facility] Division of [facility] - Surgery [address] [place] [phone] Vaibhav Nicholson MD [address] [place] [address] Rusty Gipson, TREVA Anesthesia Record Procedure Summary Procedure Name Responsible Anesthesiologist Anesthesia Start Time Anesthesia Stop Time DEBRIDEMENT LEFT CHEST WALL WOUND (Left) Vaibhav Nicholson MD 08/12/24 1021 08/12/24 1058 Events Date Time Event Comment 08/12/2024 0801 1021 An Start 1021 ANPATVER 1026 An Induction The patient was reevaluated immediately before moderate or deep sedation use and before anesthesia induction. 1027 Patient Ready for Surgeon 1027 Position 1051 an stop data 1051 Transport/Transfer From the OR 1057 Handoff to RN Transported to :Phase II, Spontaneous Ventilation, O2 per Nasal Cannula, 3 LPM Pt. Tolerated procedure well, vital signs stable and document on nursing record Care transferred to receiving RN 1058 An Stop Meds Name Total fentaNYL (SUBLIMAZE) injection 50 mcg propofol (DIPRIVAN) infusion 426.24 mg propofol (DIPRIVAN) injection 50 mg midazolam (VERSED) injection 2 mg/2 mL 2 mg lactated ringers infusion 800 mL * Agents Name Sevoflurane Inspired Sevoflurane * Blood No blood administrations on file. Lines, Drains, and Airways Type Details Placement Removal PICC Double Lumen Placement Date: 05/24; Placement Time: 1206; Existing LDA Placed by: Other (Comment) (Dynamic Access); Cath Out Checklist Completed: Yes; Size: 5; Length: 42 cm; Orientation: Left; Site Prep: Chlorhexadine and isopropyl alcohol; Local Anesth: Injectable; Initial Extremity Circumference: 35 cm; Initial Exposed Catheter: 1 cm; Inserted By: Richard RENAE; Insertion Attempts: 1; Patient Tolerance: Tolerated well 05/02/24 1206 by Rossy Ng RN Wound 06/13/24; 1739; Inci keith; Chest; Left; SPONGE GZE 6.75X6IN BULKEE SUP CTTN ABS LF STRL RPL [id number] (x1), PAD ABD 9X5IN ABS NWVN HDRPHB BCK SL EDG CLU STRL LF RPL [id number] (x2) 06/13/24 1739 by Ninfa Tejeda RN documented in this encounter Social History Tobacco Use Types Packs/Day Years Used Date Smoking Tobacco: Never Passive Smoke Exposure: Past Smokeless Tobacco: Never Alcohol Use Standard Drinks/Week Comments Not Currently 0 (1 standard drink = 0.6 oz pur e alcohol) [facility] Utilities Answer Date Recorded In the past 12 months has [employer], gas, oil, or water [employer] threatened to shut off services in your [...] often do you attend chur ch or mandaen services? More than 4 times per year 02/27/2022 Do you belong to any clubs o r organizations such as roman catholic groups, unions, fraternal or athletic groups, or [...] Answer Date Recorded Total Score 0 08/10/2024 [facility] of Occupat ional Health - Occupational Stress [...] Recorded Do you need help finding a the [facility] specialty hospital career center and/or a training program? [...] on file documented as of this encounter OR Notes * Anesthesia Postprocedure Evaluation - Vaibhav Nicholson MD - 08/12/2024 10:58 AM EDT ANESTHESIA POST-EVALUATION [facility] Procedure Summary Date: 08/12/24 Room / Location: [facility] OR SURGERY Anesthesia Start: 1021 Anesthesia Stop: 105 Procedure: DEBRIDEMENT LEFT CHEST WALL WOUND (Left) Diagnosis: (LEFT AXILLA WOUND) Surgeons: Jhon Rosado MD Responsible Provider: Vaibhav Nicholson MD Anesthesia Type: MAC ASA Status: 3 Vitals: 08/12/24 1057 BP: 120/77 Pulse: 70 Resp: 10 Temp: 36 ??C (96.8 ??F) SpO2: 93% Patient Evaluated: Phase II Patient Participation: Waiting for patient participation Patient Level of Consciousness: Sleeping Airway Patency: Patent Anesthetic Complications: No Cardiovascular Status: Hemodynamically Stable Respiratory Status: Nasal Cannula and Nonlabored Ventilation Post-op Hydration: Euvolemic Final Anesthesia Type: MAC Does patient meet criteria to D/C from PACU?: Yes No notable events documented. * Anesthesia Preprocedure Evaluation - Vaibhav Nicholson MD - 08/12/2024 7:31 AM EDT Images from the original note were not included. ANESTHESIA PRE-PROCEDURE EVALUATION [facility] Procedure(s): DEBRIDEMENT BREAST- AXILLA ANESTHESIA PHYSICAL EXAM Patient summary reviewed and nursing notes reviewed. Airway Mallampati: II TM distance: >3 FB Neck ROM: full Dental Pulmonary Cardiovascular ECG reviewed Rhythm: Regular Rate: Normal Abdominal Other Findings Past Medical History: No date: MIRNA (acute kidney injury) Comment: from vancomycin 2023: Breast cancer ([facility]) Comment: chemo, surgery, radation, oral chemo No date: Breast wound Comment: left 09/18/2023: Deep vein thrombosis ([facility]) Comment: Left calf No date: Dental disease Comment: one permanent crown No date: Headache No date: History of chemotherapy No date: History of radiation therapy No date: Hypertension No date: Knee pain 06/2024: Liver lesion Comment: mets to liver No date: Mycobacterial infection No date: PONV (postoperative nausea and vomiting) Comment: scop patch has helped in the past 05/13/2023: Port-A-Cath in place No date: Uterine fibroid No date: Visual impairment Comment: Glasses ANESTHESIA PLAN ASA 3 Anesthesia Type: MAC Anesthetic risks, plan and alternatives discussed with Patient. Post op Pain Management: PO Analgesics and IV Analgesics Transfer to PACU PONV: High Risk Total Score: 4 Female patient Non-smoker History of PONV and/or Motion Sickness Intended opioid administration RCRI: Low Risk: Score of 0 = 3.9% (2.8-5.4%) Risk of major cardiac event Score of 1 = 6.0% (4.9-7.4%) Risk of major cardiac event Total Score: 0 Criteria that do not apply: Cerebrovascular Disease Ischemic Heart Disease Congestive Heart Failure Elevated Risk Surgery Pre-operative Treatment with Insulin Pre-operative Creatinine >2 mg/dL / 176.8 mol/L Patient Active Problem List Diagnosis Arthritis of [...] breast of female, estrogen receptor positive (CMS-HCC) S/P breast reconstruction, bilateral Cellulitis of left breast MIRNA (acute kidney injury) Infection of deep incisional surgical site after procedure Mycobacterium abscessus infection Pelvic mass in female S/P breast reconstruction, left Breast wound, left, sequela Complicated wound infection documented in this encounter Plan of Treatment Upcoming Encounters Date Type Department Care Team (Late st Contact Info) Description 08/29/2024 9:30 AM EDT Office Visit [facility] Physicians Plastic and Reconstructive Surgery [address] [place] [address] [address] [place] [address] Shereen Smallwood, PANicolasC [address] [place] [address], [facility] [address] [place] [address] 10/26/2024 8:30 AM EDT [facility] Gy[facility] Oncology, A Department of [address] [facility] [address] [place] [address] [place] [address] [place] [address], [address] [place], [place] [phone] documented as of this encounter Goals Goal Patient Goal Type Associated Problems Recent Progress Patient-Stated? Author return home General Yes Mariah Gonsalez, RN Note: Evaluation of progress towards goal: progressing, patient will return home at discharge/follow up [facility] Wound care clinic Autogenerated Goal Care Plan Autogenerated Problem No Skyla Marie documented as of this encounter Visit Diagnoses Not on filedocumented in this encounter Administered Medications Inactive Administered Medications - up to 3 most recent administrations Medication Order MAR Action Action Date Dose Rate Site fentaNYL (SUBLIMAZE) injection intravenous, As needed, Starting on Thu08/12/24 at 1026, Anesthesia Intra-op Given 08/12/2024 10:29 AM EDT 25 mcg Given 08/12/2024 10:26 AM EDT 25 mcg lactated ringers infusion 100 mL/hr, intravenous, Continuous, [...] 100 mL/hr 100 mL/hr midazolam (VERSED) injection intravenous, As needed, Starting on Thu08/12/24 at 1021, Anesthesia Intra-op Given 08/12/2024 10:21 AM EDT 2 mg propofoL (DIPRIVAN) infusion intravenous, Continuous PRN, Starting on Thu08/12/24 at 1026, Anesthesia Intra-op New Bag 08/12/2024 10:26 AM EDT 150 mcg/kg/min 79.92 mL/hr propofol (DIPRIVAN) injection intravenous, As needed, Starting on Thu08/12/24 at 1026, Anesthesia Intra-op Given 08/12/2024 10:26 AM EDT 50 mg documented in this encounter Additional Health Concerns Active Problems Noted Date Diagnosed Date Autogenerated Problem 08/09/2024 Assessment Noted Time PHQ-9 Depression Total Score: 0 08/11/19 25 3:50 PM EDT documented as of this encounter Care Teams Railroad Watchman Relationship Specialty Start Date End Date Amy Collier, ALTERNATIVE EDUCATION TEACHER-REPAIRER SASH AND DOOR [address] [place] [address] PCP - General 11/28/16 documented as of this encounter
--- OUTSIDE RECORDS SUMMARY | 2024-08-18 15:30 | XMS_ITS | Encounter Summary ---
Author Organization [facility] tem Address [id number] [address] [place] [address] Care Team Providers Care Tip Inserter Name Role Phone Amy Collier VALIDATION ENGINEER-DOORPERSON OR LUGGAGE PORTER Primary Care Provider + Reason for Visit * Reason Comments Post-op Encounter Details Date Type Department Care Team (Late st Contact Info) Description 08/18/2024 3:30 PM EDT Office Visit [facility] Physicians Plastic and Reconstructive Surgery [address] [place] [address] Shereen Smallwood PA-C [address] [place] [address] Social History Tobacco Use Types Packs/Day Years Used Date Smoking Tobacco: Never Passive Smoke Exposure: Past Smokeless Tobacco: Never Alcohol Use Standard Drinks/Week Comments Not Currently 0 (1 standard drink = 0.6 oz pur e alcohol) [facility] Utilities Answer Date Recorded In the past 12 months has [employer], oil, or water [employer] threatened to shut off services in your [...] 02/27/2022 How often do you attend chur or mandaeism services? More than 4 times per year 02/27/2022 Do you belong to any clubs o r organizations such as episcopal groups, unions, fraternal or athletic groups, or [...] Answer Date Recorded Total Score 0 08/10/2024 [facility] of Occupat ional Health - Occupational [...] Recorded Do you need help finding a [facility] career center and/or a training program? [...] Sign Reading Time Taken Comments Blood Pressure 118/82 08/18/2024 3:41 PM EDT Pulse 93 08/18/2024 3:41 PM EDT Temperature 36.6 C (97.8 F) 08/18/2024 3:41 PM EDT Respiratory Rate 16 08/18/2024 3:41 PM EDT Oxygen Saturation - - Inhaled Oxygen Concentration - - Weight - - Height - - Body Mass Index - - documented in this encounter Plan of Treatment Upcoming Encounters Date Type Department Care Team (Late st Contact Info) Description 08/29/2024 9:30 AM EDT Office Visit [facility] Physicians Plastic and Reconstructive Surgery [employer] [address] [facility] [address] [place] [address] Shereen Smallwood PA-C [address] [place] [address] 10/26/2024 8:30 AM EDT Telephone Visit [facility] Gynecology Oncology, A Department of [place] [address] [address] [facility] [place] [address] [place] [address] [place] [address], [address] [place] [address] documented as of this encounter Goals Goal Patient Goal Type Associated Problems Recent Progress Patient-Stated? Author return home General Yes Mariah Gonsalez, RN Note: Evaluation of progress towards goal: progressing, patient will return home at discharge/follow up [facility] Wound care clinic Autogenerated Goal Care Plan Autogenerated Problem No Skyla Marie documented as of this encounter Visit Diagnoses Not on filedocumented in this encounter Additional Health Concerns Active Problems Noted Date Diagnosed Date Autogenerated Problem 08/09/2024 Assessment Noted Time PHQ-9 Depression Total Score: 0 08/11/19 25 3:50 PM EDT documented as of this encounter Care Teams Tip Inserter Relationship Specialty Start Date End Date Amy Collier, VALIDATION ENGINEER-DOORPERSON OR LUGGAGE PORTER [address] [place] [address] PCP - General 11/28/16 documented as of this encounter
--- OUTSIDE RECORDS SUMMARY | 2024-08-24 11:11 | XMS_ITS | Encounter Summary ---
Author Organization [facility] tem Address [id number] [address] [place] [address] Care Team Providers Care Motor Vehicle Compliance Analyst Name Role Phone Amy Collier BENDING ROLL HAND-DOGGER Primary Care Provider + Encounter Details Date Type Department Care Team (Late st Contact Info) Description 12/22/2023 Orders Only [facility] Infectious Disease [address] [facility] [address] [place] [address] External, Scanning Provider Social History Tobacco Use Types Packs/Day Years Used Date Smoking Tobacco: Never Smokeless Tobacco: Never Alcohol Use Standard Drinks/Week Comments Yes 0 (1 standard drink = 0.6 oz pur e alcohol) Socially AHC Utilities Answer Date Recorded In the past 12 months has [employer] electric, gas, oil, or water company threatened to shut off services in your home? No 12/03/2023 Social Connection and Isolat ion Panel [NHANES] Answer Date Recorded In a typical week, how many times do you talk on the phone with family, friends, or neighbors? Twice a week 02/27/2022 How often do you get togethe r with friends or relatives? Three times a week 02/27/2022 How often do you attend chur ch or gnosticism services? More than 4 times per year 02/27/2022 Do you belong to any clubs o r organizations such as denominational groups, unions, fraternal or athletic groups, or [...] PHQ-2 Answer Date Recorded Total Score 0 03/07/2022 [facility] [place] of Occupat ional Health - Occupational Stress [...] medical appointments or from getting medications? No 05/2023 In the past 12 months, has l ack of transportation kept you from meetings, work, or from getting things needed for daily living? No 12/03/2023 Housing Instability Answer Date Recorde d Are you worried or concerned that in the next two months you may not have stable housing that you own, rent or stay in as a part of a household? No 12/03/2023 Childcare Answer Date Recorded Do problems getting [...] got money to buy more. Never True 12/14/2023 Within the past 12 months th e food we bought just didn't last and we didn't have money to get more. Never True 12/14/2023 Purpose - Life Answer Date Recorded I [...] on file documented as of this encounter Plan of Treatment Upcoming Encounters Date Type Department Care Team (Late st Contact Info) Description 08/29/2024 9:30 AM EDT Office Visit [facility] Physicians Plastic and Reconstructive Surgery [address] [place] [address] [address] [place] [address] Shereen Smallwood PA-C [address] [place] [address], [facility] [address] [place] [phone] 10/26/2024 8:30 AM EDT Telephone Visit [facility] Gynecology Oncology, A Department of [address] [place] [phone] [place] [address] [place] [address], [address] [place], [place] [id number] documented as of this encounter Procedures Procedure Name Priority Date/Time Associated Diagnosis Comments PLATELET COUNT Routine 12/17/2023 WBC Routine 12/17/2023 LIVER PANEL Routine 12/17/2023 CREATININE, SERUM Routine 12/10/2023 documented in this encounter Results * Liver panel (12/17/2023) External Albumin 3.0 MAN UALLY TRANSCRIBED RESULTS External Alt Sgpt 36 MANUALLY TRANSCRIBED RESULTS External Ast 25 MANUALL Y TRANSCRIBED RESULTS Total Bilirubin 1.1 MANU ALLY TRANSCRIBED RESULTS External Direct Bilirubin Dbil 0.2 MANUALLY TRANSCRIBED RESULTS External Alkaline Phosphatase 88 MANUALLY TRANSCRIBED RESULTS External Total Protein 6.4 MANUALLY TRANSCRIBED RESULTS External Alb/Glob Ratio 0.9 MANUALLY TRANSCRIBED RESULTS Blood 12/17/2023 us Scanning Provider External LAB BLOOD ORDERABLES Final Result Performing Organization Address [facility] de Phone Number MANUALLY TRANSCRIBED RESULTS * Platelet count (12/17/2023) External Platelet Count 280 150 - 450 MANUALLY TRANSCRIBED RESULTS Blood 12/17/2023 us Scanning Provider External LAB BLOOD ORDERABLES Final Result Performing Organization Address [facility] de Phone Number MANUALLY TRANSCRIBED RESULTS * WBC (12/17/2023) External Wbc Count 5.4 4.0 - 11.0 MANUALLY TRANSCRIBED RESULTS Blood 12/17/2023 us Scanning Provider External LAB BLOOD ORDERABLES Final Result Performing Organization Address [facility] de Phone Number MANUALLY TRANSCRIBED RESULTS * (ABNORMAL) Creatinine includes GFR, serum (12/10/2023) External Creatinine 1.50(A) 0.55 - 1.02 MANUALLY TRANSCRIBED RESULTS Blood 12/10/2023 us Scanning Provider External LAB BLOOD ORDERABLES Final Result Performing Organization Address [facility] de Phone Number MANUALLY TRANSCRIBED RESULTS documented in this encounter Visit Diagnoses Not on filedocumented in this encounter Additional Health Concerns Assessment Noted Time PHQ-9 Depression Total Score: 0 03/07/19 23 11:14 AM EST documented as of this encounter Care Teams Motor Vehicle Compliance Analyst Relationship Specialty Start Date End Date Amy Collier, BENDING ROLL HAND-DOGGER [facility] [place] [address] PCP - General 11/28/16 documented as of this encounter
--- OUTSIDE RECORDS SUMMARY | 2024-08-24 11:11 | XMS_ITS | Encounter Summary ---
Author Organization [employer] Sys tem Address [id number] [address] [place] [address] Care Team Providers Care Dental Professional Name Role Phone Amy Collier GROUND CREWMAN MISSION SUPPORT-PAINTER TOUCH UP Primary Care Provider + Encounter Details Date Type Department Care Team (Late st Contact Info) Description 06/20/2024 Telephone [facility] Internal Medicine - Family Medicine [address] [place] [phone] Kodi Monteiro CMA Social History Tobacco Use Types Packs/Day Years Used Date Smoking Tobacco: Never Passive Smoke Exposure: Past Smokeless Tobacco: Never Alcohol Use Standard Drinks/Week Comments Yes 0 (1 standard drink = 0.6 oz pur e alcohol) Socially AHC Utilities Answer Date Recorded In the past 12 months has [employer] electric, gas, oil, or water company threatened to shut off services in your home? No 06/11/2024 Social Connection and Isolat ion Panel [NHANES] Answer Date Recorded In a typical week, how many times do you talk on the phone with family, friends, or neighbors? Twice a week 02/27/2022 How often do you get togethe r with friends or relatives? Three times a week 02/27/2022 How often do you attend chur ch or jain services? More than 4 times per year 02/27/2022 Do you belong to any clubs o r organizations such as anabaptism groups, unions, fraternal or athletic groups, or [...] 02/27/2022 PHQ-2 Answer Date Recorded Total Score 2 03/30/2024 [facility] [place] of Occupat ional Health - Occupational Stress [...] medical appointments or from getting medications? No 05/31 In the past 12 months, has l ack of transportation kept you from meetings, work, or from getting things needed for daily living? No 06/11/2024 Housing Instability Answer Date Recorde d Are you worried or concerned that in the next two months you may not have stable housing that you own, rent or stay in as a part of a household? No 06/11/2024 Childcare Answer Date Recorded Do problems getting [...] got money to buy more. Never True 06/22/2024 Within the past 12 months th e food we bought just didn't last and we didn't have money to get more. Never True 06/22/2024 Purpose - Life Answer Date Recorded I [...] as of this encounter Miscellaneous Notes * Telephone Encounter - Kodi Monteiro CMA - 06/20/2024 11:55 AM EDT I called pt and left vm to schedule a TCM visit before June 28 documented in this encounter Plan of Treatment Upcoming Encounters Date Type Department Care Team (Late st Contact Info) Description 08/29/2024 9:30 AM EDT Office Visit [facility] Plastic and Reconstructive Surgery [address] [facility] [address] [place] [phone] Shereen Smallwood, PANicolasC [address] [facility], [facility] [address] [place] [address] 10/26/2024 8:30 AM EDT Telephone Visit [facility] Gynecology Oncology, A Department of [facility] [address] [place] [phone] Raymond Sepulvead MD [address] [facility], [address] [place] [address] documented as of this encounter Goals Goal Patient Goal Type Associated Problems Recent Progress Patient-Stated? Author return home General Yes Mariah Gonsalez, RN Note: Evaluation of progress towards goal: progressing, patient will return home at discharge/follow up [facility] Wound care clinic documented as of this encounter Visit Diagnoses Not on filedocumented in this encounter Additional Health Concerns Assessment Noted Time PHQ-9 Depression Total Score: 2 03/30/19 25 3:58 PM EST documented as of this encounter Care Teams Dental Professional Relationship Specialty Start Date End Date Amy Collier APRN-PAINTER TOUCH UP [address] [place] [address] PCP - General 11/28/16 documented as of this encounter
--- OUTSIDE RECORDS SUMMARY | 2024-08-24 11:11 | XMS_ITS | Encounter Summary ---
Author Organization [employer] Sys tem Address [id number] [address] [place] [address] Care Team Providers Care Tube Cleaning Operator Name Role Phone Amy Collier CVOR NURSE-ASSISTANT SHIFT SUPERVISOR Primary Care Provider + Encounter Details Date Type Department Care Team (Late st Contact Info) Description 06/23/2024 Telephone [facility] Plastic and Reconstructive Surgery [address] [facility] [address] [place] [address] Viviane Lopez CMA Social History Tobacco Use Types Packs/Day Years Used Date Smoking Tobacco: Never Passive Smoke Exposure: Past Smokeless Tobacco: Never Alcohol Use Standard Drinks/Week Comments Yes 0 (1 standard drink = 0.6 oz pur e alcohol) Socially AHC Utilities Answer Date Recorded In the past 12 months has [employer] electric, gas, oil, or water [employer] threatened to shut off services in your [...] often do you attend chur ch or anabaptism services? More than 4 times per year 02/27/2022 Do you belong to any clubs o r organizations such as alevism groups, unions, fraternal or athletic groups, or [...] Answer Date Recorded Total Score 2 03/30/2024 [facility] [place] of Occupat ional Health - Occupational Stress [...] encounter Miscellaneous Notes * Telephone Encounter - Viviane Lopez CMA - 06/23/2024 1:45 PM EDT L tissue breast 06/13/24 Positive culture result. documented in this encounter Plan of Treatment Upcoming Encounters Date Type Department Care Team (Late st Contact Info) Description 08/29/2024 9:30 AM EDT Office Visit [facility] Physicians Plastic and Reconstructive Surgery [address] [facility] [address] [place] [address] Shereen Smallwood, PANicolasC [address] [facility] , [facility] [address] [place] [address] 10/26/2024 8:30 AM EDT Telephone Visit [facility] Gynecology Oncology, A Department of [facility] [address] [facility] [address] [place] [phone] Raymond Sepulveda MD [address] [facility], [address] [place] [address] documented as of this encounter Goals Goal Patient Goal Type Associated Problems Recent Progress Patient-Stated? Author return home General Yes Mariah Gonsalez, RN Note: Evaluation of progress towards goal: progressing, patient will return home at discharge/[facility] documented as of this encounter Visit Diagnoses Not on filedocumented in this encounter Additional Health Concerns Assessment Noted Time PHQ-9 Depression Total Score: 2 03/30/19 25 3:58 PM EST documented as of this encounter Care Teams Tube Cleaning Operator Relationship Specialty Start Date End Date Amy Collier APRN-ASSISTANT SHIFT SUPERVISOR [address] [place] [address] PCP - General 11/28/16 documented as of this encounter
--- OUTSIDE RECORDS SUMMARY | 2024-08-24 11:11 | XMS_ITS | Encounter Summary ---
Author Organization [facility] Sys tem Address [id number] [address] [place] [address] Care Team Providers Care Epic Willow Analyst Name Role Phone Amy Collier PIZZA BAKER-CONDUCTOR SLEEPING CAR Primary Care Provider + Encounter Details Date Type Department Care Team (Late st Contact Info) Description 01/07/2024 Orders Only [facility] Infectious Disease [address] [facility] [address] [place] [address] External, Scanning Provider Social History Tobacco Use Types Packs/Day Years Used Date Smoking Tobacco: Never Smokeless Tobacco: Never Alcohol Use Standard Drinks/Week Comments Yes 0 (1 standard drink = 0.6 oz pur e alcohol) Socially AHC Utilities Answer Date Recorded In the past 12 months has [employer] electric, gas, oil, or water company threatened [...] often do you attend chur ch or scientology services? More than 4 times per year 02/27/2022 Do you belong to any clubs o r organizations such as pentecostal groups, unions, fraternal or athletic groups, or [...] Answer Date Recorded Total Score 0 03/07/2022 [facility] [place] of Occupat ional Health - Occupational Stress [...] Description 08/29/2024 9:30 AM EDT Office Visit [facility] Physicians Plastic and Reconstructive Surgery [address] [place] [address] [address] [place] [address] Shereen Smallwood PA-C [address] [facility], [facility] [address] [place] [phone] 10/26/2024 8:30 AM EDT Telephone Visit [facility] Gynecology Oncology, A Department of [address] [place] [phone] [place] [address] [place] [address], [address] [place], [place] [phone] documented as of this encounter Procedures Procedure Name Priority Date/Time Associated Diagnosis Comments PLATELET COUNT Routine 12/31/2023 WBC Routine 12/31/2023 CREATININE, SERUM Routine 12/31/2023 documented in this encounter Results * Platelet count (12/31/2023) External Platelet Count 164 150 - 450 MANUALLY TRANSCRIBED RESULTS Blood 12/31/2023 us Scanning Provider External LAB BLOOD ORDERABLES Final Result Performing Organization Address [facility] de Phone Number MANUALLY TRANSCRIBED RESULTS * WBC (12/31/2023) External Wbc Count 5.6 4.0 - 11.0 MANUALLY TRANSCRIBED RESULTS Blood 12/31/2023 us Scanning Provider External LAB BLOOD ORDERABLES Final Result Performing Organization Address [facility] de Phone Number MANUALLY TRANSCRIBED RESULTS * Creatinine includes GFR, serum (12/31/2023) External Creatinine 0.89 0.55 - 1.02 MANUALLY TRANSCRIBED RESULTS Blood 12/31/2023 us Scanning Provider External LAB BLOOD ORDERABLES Final Result Performing Organization Address [facility] de Phone Number MANUALLY TRANSCRIBED RESULTS documented in this encounter Visit Diagnoses Not on filedocumented in this encounter Additional Health Concerns Assessment Noted Time PHQ-9 Depression Total Score: 0 03/07/19 23 11:14 AM EST documented as of this encounter Care Teams Epic Willow Analyst Relationship Specialty Start Date End Date Amy Collier, ROBER-CONDUCTOR SLEEPING CAR [address] [facility] [place] [address] PCP - General 11/28/16 documented as of this encounter
--- OUTSIDE RECORDS SUMMARY | 2024-08-24 11:11 | XMS_ITS | Encounter Summary ---
Author Organization [employer] Address [facility] [id number] [address] [place] [address] Care Team Providers Care Kohinoor Operator Name Role Phone Amy Collier MANAGEMENT SERVICES TECHNICIAN-CORRECTIONAL SERGEANT Primary Care Provider + Encounter Details Date Type Department Care Team (Late st Contact Info) Description 11/30/2023 [facility]phone [facility] [address] [facility] [address] [place] [address] Shy Bob MA Social History Tobacco Use Types Packs/Day Years Used Date Smoking Tobacco: Never Smokeless Tobacco: Never Alcohol Use Standard Drinks/Week Comments Yes 0 (1 standard drink = 0.6 oz pur e alcohol) Socially AHC Utilities Answer Date Recorded In the past 12 months has [employer] electric, gas, oil, or water company threatened [...] often do you attend chur ch or mormon services? More than 4 times per year 02/27/2022 Do you belong to any clubs o r organizations such as faith groups, unions, fraternal or athletic groups, or [...] Answer Date Recorded Total Score 0 03/07/2022 [facility] [place] of Occupat ional Health - Occupational Stress [...] got money to buy more. Never True 12/03/2023 Within the past 12 months th e food we bought just didn't last and we didn't have money to get more. Never True 12/03/2023 Purpose - Life Answer Date Recorded I [...] on file documented as of this encounter Functional Status documented as of this encounter Miscellaneous Notes * Telephone Encounter - Shy Bob MA - 11/30/2023 11:20 AM EDT ----- Message from AMEENA Gomez sent at 11/28/2023 2:45 PM EDT ----- Please arrange [facility] follow-up appointment. She will need to be seen on her before December 09. Discharging home with chest port in place, IV daptomycin and ertapenem social worker delinquency prevention is currently working on arranging home healthcare with [facility] and [facility] script (not finalized) Labs 2 times a week x2 weeks including CK, WBC, platelets, creatinine and LFTs * Telephone Encounter - Shy Bob MA - 11/30/2023 11:20 AM EDT Left message to call office. * Telephone Encounter - Shy Bob MA - 11/30/2023 11:20 AM EDT Patient scheduled. documented in this encounter Plan of Treatment Upcoming Encounters Date Type Department Care Team (Late st Contact Info) Description 08/29/2024 9:30 AM EDT Office Visit [facility] Plastic and Reconstructive Surgery [address] [facility] [address] [place] [address] Shereen Smallwood PA-C [address] [facility], [facility] [address] [place] [address] 10/26/2024 8:30 AM EDT Telephone Visit [facility] Oncology, A Department of [address] [place] [address] Raymond Sepulveda MD [address] [facility], [address] [place] [address] documented as of this encounter Visit Diagnoses Not on filedocumented in this encounter Additional Health Concerns Assessment Noted Time PHQ-9 Depression Total Score: 0 03/07/19 23 11:14 AM EST documented as of this encounter Care Teams Kohinoor Operator Relationship Specialty Start Date End Date Amy Collier, MANAGEMENT SERVICES TECHNICIAN-CORRECTIONAL SERGEANT [address] [place] [address] PCP - General 11/28/16 documented as of this encounter
--- OUTSIDE RECORDS SUMMARY | 2024-08-24 11:11 | XMS_ITS | Encounter Summary ---
Author Organization Soldsie tem Address [id number] [place] [address] Care Team Providers Care Ice Resurfacing Machine Operators Name Role Phone Amy Collier William LINDQUIST Primary Care Provider + Reason for Referral * Consultation (Urgent) - Pending Review Specialty Diagnoses / Procedures Referred By Contac t Referred To Contact Infectious Disease / Respiratory Therapy Diagnoses Acid fast bacillus Carolina Munguia APRN-CNP [address] [address] [address] [address] Phone: tel: fax: Uyen Rivera MD [address] [address] Phone: tel: fax: Referral ID Status Reason Start Date Expiration Date Visits Requested Visits Authorized [id number] Pending Review Specialty Services Required 12/02/2023 12/01/2024 1 1 * Consultation (Urgent) - Pending Review Specialty Diagnoses / Procedures Referred By Contac t Referred To Contact Infectious Disease Diagnoses Acid fast bacillus Carolina Munguia APRN-CNP [address] [facility] [address] [address] Phone: tel: fax: Clint Lizarraga MD [address] [place] [address] Phone: tel: fax: Referral ID Status Reason Start Date Expiration Date Visits Requested Visits Authorized [id number] Pending Review Specialty Services Required 12/02/2023 12/01/2024 1 1 Encounter Details Date Type Department Care Team (Late st Contact Info) Description 12/02/2023 Orders Only [facility] Infectious Disease [address] [facility] [address] [facility] [address] Carolina Munguia APRN-CNP [address] [facility], [address] [address] Acid fast bacillus (Primary Dx) Social History Tobacco Use Types Packs/Day Years Used Date Smoking Tobacco: Never Smokeless Tobacco: Never Alcohol Use Standard Drinks/Week Comments Yes 0 (1 standard drink = 0.6 oz pur e alcohol) Socially [employer] Utilities Answer Date Recorded In the past 12 months has [employer], gas, oil, or water [employer] threatened to shut off services in your home? No 12/03/2023 Social Connection and Isolat ion Panel [NHANES] Answer Date Recorded In a typical week, how many times do you talk on the phone with family, friends, or neighbors? Twice a week 02/27/2022 How often do you get togethe r with friends or relatives? Three times a week 02/27/2022 How often do you attend [facility] or yarsanism services? More than 4 times per year 02/27/2022 Do you belong to any clubs o r organizations such as lutheran groups, unions, fraternal or athletic groups, or [...] Answer Date Recorded Total Score 0 03/07/2022 [facility] - Occupational Stress Questionnaire Answer Date [...] Do you need help finding a l al career center and/or a training program? No [...] Functional Status documented as of this encounter Plan of Treatment Upcoming Encounters Date Type Department Care Team (Late st Contact Info) Description 08/29/2024 9:30 AM EDT Office Visit [facility] Physicians Plastic and Reconstructive Surgery [address] [place] [address] [address] [place] [address] Shereen Smallwood, PANicolasC [address] [facility], [facility] [address] [place] [address] 10/26/2024 8:30 AM EDT Telephone Visit [facility] Gynecology Oncology, A Department of [address] [place] [address] [place] [address] [place] [address], [address] [place], [place] [id number] Scheduled Referrals Name Type Priority Associated Diagnoses Order Schedule Ambulatory referral to Infectious Disease ([facility]) Outpatient Referral Routine Acid fast bacillus 1 Occurrences starting 12/02/2023 until 12/01/2024 Ambulatory referral to Infectious Disease (Non-[facility]) Outpatient Referral Routine Acid fast bacillus 1 Occurrences starting 12/02/2023 until 12/01/2024 documented as of this encounter Visit Diagnoses Diagnosis 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
--- OUTSIDE RECORDS SUMMARY | 2024-08-24 11:11 | XMS_ITS | Encounter Summary ---
Author Organization [facility] tem Address [id number] [address] [place] [address] Care Team Providers Care Wreath And Garland Maker Hand Name Role Phone Amy Collier MUSIC RESEARCHER-STATUARY PAINTER Primary Care Provider + Reason for Referral * Diagnostic Imaging (Routine) - Closed Specialty Diagnoses / Procedures Referred By Contac t Referred To Contact Radiology Diagnoses Liver lesion Procedures IR percutaneous biopsy liver Guillaume Curiel MD [address] [place] [address] [place] [address] Phone: tel: fax: Referral ID Status Reason Start Date Expiration Date Visits Re quested Visits Authorized [id number] Closed 1 1 Encounter Details Date Type Department Care Team (Late st Contact Info) Description 07/06/2024 Orders Only [facility] Division of [facility] - Interventional Radiology [address] [place] [address] Guillaume Curiel MD [address] [place] [address] [place] [address] Liver lesion (Primary Dx) Social History Tobacco Use Types Packs/Day Years Used Date Smoking Tobacco: Never Passive Smoke Exposure: Past Smokeless Tobacco: Never Alcohol Use Standard Drinks/Week Comments Yes 0 (1 standard drink = 0.6 oz pur e alcohol) Socially AHC Utilities Answer Date Recorded In the past 12 months has [employer] electric, gas, oil, or water company threatened [...] often do you attend chur ch or protestant services? More than 4 times per year [...] Answer Date Recorded Total Score 2 03/30/2024 [facility]at [facility] Health - Occupational Stress Questionnaire Answer Date [...] Recorded Do you need help finding a [facility] career center and/or a training program? No [...] 9:30 AM EDT Office Visit [facility] Physicians Plastic and Reconstructive Surgery [facility] [address] [facility] [address] [place] [phone] Shereen Smallwood PA-C [address], [facility] [address] [place] [address] 10/26/2024 8:30 AM EDT Telephone Visit [facility] Gynecology Oncology, A Department of [place] [address] [place] [address] [place] [address] [place] [address], [address] [place] [address] documented as of this encounter Goals Goal Patient Goal Type Associated Problems Recent Progress Patient-Stated? Author return home General Yes Mariah Gonsalez, RN Note: Evaluation of progress towards goal: progressing, patient will return home at discharge/follow up [facility] W[facility] care clinic documented as of this encounter Results * IR percutaneous biopsy liver (07/11/2024 2:56 PM EDT) Anatomical Region Laterality Modality IR N/A X-Ray Angiograph y 07/11/2024 3:03 PM EDT Narrative 07/11/2024 3:04 PM EDT History: 53-year-old female with liver lesion, history of breast cancer Procedure: Ultrasound guided core biopsy of right hepatic lesion Interventional radiologist: Dr. Valdemar Luz Anesthesia: The patient's cardiopulmonary status was evaluated and the patient is suitable for moderate sedation. During the course of the procedure, the patient was sedated with 1 mg Versed IV and 100 mcg Fentanyl IV while being monitored with ECG, blood pressure monitoring and pulse oximetry by appropriately trained personnel. A total of 30 minutes tude-an-rrgt moderate sedation was provided by Dr. Luz. Following the procedure, the patient was recovered according to the moderate sedation policy. Estimated blood loss: Minimal Findings and technique: Informed consent was obtained from the patient after discussion of procedure, risks and benefits. Final verification was performed. Limited ultrasound scanning was performed for localization of the right hepatic lesion. Skin was marked with ultrasound and then sterilely prepped and draped. Local anesthesia with 1% lidocaine. Using ultrasound guidance, a 17 gauge introducer was advanced to the mass and through this, 4 passes with an 18 gauge core biopsy device were performed. Specimens were placed in formalin. Patient tolerated the procedure well. No immediate complications. Impression: 1. Successful ultrasound guided core biopsy of right hepatic mass. Finalized by Valdemar Luz MD on 07/11/2024 3:04 PM Procedure Note Valdemar Luz MD - 07/11/2024 History: 53-year-old female with liver lesion, history of breast cancer Procedure: Ultrasound guided core biopsy of right hepatic lesion Interventional radiologist: Dr. Valdemar Luz Anesthesia: The patient's cardiopulmonary status was evaluated and thepatient is suitable for moderate sedation. During the course of theprocedure, the patient was sedated with 1 mg Versed IV and 100 mcgFentanyl IV while being monitored with ECG, blood pressure monitoring andpulse oximetry by appropriately trained personnel. A total of 30 minutes vzbv-hi-htbdcakuwyqe sedation was provided by Dr. Luz. Following the procedure,the patient was recovered according to the moderate sedation policy. Estimated blood loss: Minimal Findings and technique: Informed consent was obtained from the patientafter discussion of procedure, risks and benefits. Final verification wasperformed. Limited ultrasound scanning was performed for localization ofthe right hepatic lesion. Skin was marked with ultrasound and thensterilely prepped and draped. Local anesthesia with 1% lidocaine. Using ultrasoundguidance, a 17 gauge introducer was advanced to the mass and through this,4 passes with an 18 gauge core biopsy device were performed. Specimenswere placed in formalin. Patient tolerated the procedure well. Noimmediate complications. Impression: 1. Successful ultrasound guided core biopsy of right hepatic mass. Finalized by Valdemar Luz MD on 07/11/2024 3:04 PM us Guillaume Curiel MD IMG IR ORDERABLES Final Result documented in this encounter Visit Diagnoses Diagnosis Liver lesion- Primary Other specified disorders of liver Liver lesion Other specified disorders of liver documented in this encounter Additional Health Concerns Assessment Noted Time PHQ-9 Depression Total Score: 2 03/30/19 25 3:58 PM EST documented as of this encounter Care Teams Wreath And Garland Maker Hand Relationship Specialty Start Date End Date Amy Collier APRN-ESPERANZA [address] [place] [address] PCP - General 11/28/16 documented as of this encounter
--- OUTSIDE RECORDS SUMMARY | 2024-08-24 11:11 | XMS_ITS | Encounter Summary ---
Author Organization [employer] tem Address [id number] [address] [place] [address] Care Team Providers Care Forensics Team Director Name Role Phone Amy Collier CEMENT BREAKER-TEMPLATE FITTER Primary Care Provider + Encounter Details Date Type Department Care Team (Late st Contact Info) Description 12/02/2023 Telephone [facility] Physicians Infectious Disease [address] [facility] [address] [place] [address] Shy Bob MA Social History Tobacco Use Types Packs/Day Years Used Date Smoking Tobacco: Never Smokeless Tobacco: Never Alcohol Use Standard Drinks/Week Comments Yes 0 (1 standard drink = 0.6 oz pur e alcohol) Socially AHC Utilities Answer Date Recorded In the past 12 months has [employer] electric, gas, oil, or water company threatened [...] often do you attend chur ch or anglican services? More than 4 times per year 02/27/2022 Do you belong to any clubs o r organizations such as sabianism groups, unions, fraternal or athletic groups, or [...] Answer Date Recorded Total Score 0 03/07/2022 [facility] of Occupat ional Health - Occupational Stress [...] Telephone Encounter - Shy Bob MA - 12/02/2023 3:08 PM EDT ----- Message from AMEENA Vallejo sent at 12/02/2023 2:43 PM EDT ----- Regarding: outpatient referral A new outpatient referral for [facility] infectious Disease was placed for this patientwhile she was hospitalized. According to the process planner they called to make appointment and was told [facility]. Patient has not heard anything from them. 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 Can someone please reach out to [facility] ID and see if we can get her an appointment next week? The referral is in EPIC. Thank you. Adding Leelee for awareness * Telephone Encounter - Shy Bob MA - 12/02/2023 3:08 PM EDT I called they will not know if referral was received for 7-10 days. As of now its not shwing in their system. Once received [facility] ID will call patient. * Telephone Encounter - Shy Bob MA - 12/02/2023 3:08 PM EDT ----- Message from AMEENA Vallejo sent at 12/02/2023 3:28 PM EDT ----- Regarding: RE: outpatient referral I would like referrals sent to [facility] and [facility] as well. I will place in [facility] ----- Message ----- From: Nabila Mora CMA Sent: 12/02/2023 3:11 PM EDT To: AMEENA Gomez; # Subject: RE: outpatient referral Wendy philip, Referrals to [facility] & [facility] take 7-10 business days to receive & then get uploaded into their system. Once it has been uploaded into their system & sent to the desired dept intake basket, it takes an additional 7 days for the dept to review & call patient to schedule.Theywill not give confirmation of receipt until their team uploads the referral into their system whichis what can take up to 10 business days as they receive 100's + faxes a day. I do know, once they receive & review the referral, their office will call the patient personally to schedule & if for any reason the referral is denied--they send a denial to our office directly. I know this is so frustration and time restrictive. But this is their process. ----- Message ----- From: AMEENA Vallejo Sent: 12/02/2023 2:44 PM EDT To: Nabila Mora CMA; AMEENA Gomez; # Subject: outpatient referral A new outpatient referral for [facility] infectious Disease was placed for this patientwhile she was hospitalized. According to the process planner they called to make appointment and was told that [facility] call patient. Patient has not heard anything from them. 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 Can someone please reach out to [facility] ID and see if we can get her an appointment next week? The referral is in [facility]. Thank you. Adding Leelee smith awareness * Telephone Encounter - Shy Bob MA - 12/02/2023 3:08 PM EDT Referral faxed to [facility]. They are scheduling for December/January, if they have any cancellations they will call patient. Faxed referral to [phone] * Telephone Encounter - Nabila Mora CMA - 12/02/2023 3:08 PM EDT Referral & copy of insurance card faxed to [facility] as well & I called personally to [facility] ([phone]) to place urgent referral-- spoke to Paul @ their referral intake dept. Paul will send referral information message to ID dept, then ID office will review the referralrequest within next 24-48 hours. After that, they will reach out to us for a records request & instructions on what to send & to where. After they receive our records, they will call the patient to schedule. Copy of paper [facility] referral form will be scanned into media. * Telephone Encounter - Shy Bob MA - 12/02/2023 3:08 PM EDT [facility] is not able to see patient due to insurance out of network. Patient was notified per [facility]. * Telephone Encounter - AMEENA Vallejo - 12/02/2023 3:08 PM EDT I spoke with patient and she would like referral to [facility]. I am placing in [employer] now. Thanks for your help on this! * Telephone Encounter - Nabila Mora CMA - 12/02/2023 3:08 PM EDT [facility] requires their own form to be completed-- I have printed this off, and it does also require a signature as well--placed on [employer]'s desk. Refer a patient by paper form Fill out and fax the referral form and clinical documentation to: For referrals to [facility], fax to [phone]. For referrals to the [facility], fax to [phone]. After we have received your fax, we will contact your patient directly to schedule a convenient time and location for his or her appointment. We will send you confirmation of your patient???s appointment for your records. For referrals to [facility], fax to [phone]. If urgent, after faxing, call [phone] to expedite parts order and stock clerk. For referrals to the [facility], fax to [phone]. If urgent, call [facility] at to expedite. * Telephone Encounter - Shy Bob MA - 12/02/2023 3:08 PM EDT Referral signed and faxed. * Telephone Encounter - Shy Bob MA - 12/02/2023 3:08 PM EDT ----- Message from AMEENA Vallejo sent at 12/08/2023 10:37 AM EDT ----- Regarding: RE: outpatient referral Can we please send referral to [facility] ID physician Dr. Cortez York. I will put order in. Dr. Noguera would like her to be seen as soon as possible. Thx. ----- Message ----- From: Nabila Mora CMA Sent: 12/02/2023 3:11 PM EDT To: AMEENA Gomez; # Subject: RE: outpatient referral Wendy philip, Referrals to [facility] & [facility] take 7-10 business days to receive & then get uploaded into their system. Once it has been uploaded into their system & sent to the desired dept intake basket, it takes an additional 7 days for the dept to review & call patient to schedule.Theywill not give confirmation of receipt until their team uploads the referral into their system whichis what can take up to 10 business days as they receive 100's + faxes a day. I do know, once they receive & review the referral, their office will call the patient personally to schedule & if for any reason the referral is denied--they send a denial to our office directly. I know this is so frustration and time restrictive. But this is their process. ----- Message ----- From: AMEENA Vallejo Sent: 12/02/2023 2:44 PM EDT To: Nabila Mora CMA; AMEENA Gomez; # Subject: outpatient referral A new outpatient referral for [facility] infectious Disease was placed for this patientwhile she was hospitalized. According to the process planner they called to make appointment and was told [facility]. Patient has not heard anything from them. 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 Can someone please reach out to [facility] ID and see if we can get her an appointment next week? The referral is in EPIC. Thank you. Adding Leelee for awareness * Telephone Encounter - Shy Bob MA - 12/02/2023 3:08 PM EDT Referral faxed to PA, will call to verify documented in this encounter Plan of Treatment Upcoming Encounters Date Type Department Care Team (Late st Contact Info) Description 08/29/2024 9:30 AM EDT Office Visit [facility] Physicians Plastic and Reconstructive Surgery [address] [place] [address] Shereen Smallwood PA-C [address], [address] [facility] [place] [address] 10/26/2024 8:30 AM EDT Telephone Visit [facility] Gynecology Oncology, A Department of [facility] [address] [place] [phone] Raymond Sepulveda MD [address] [facility], [address] [place] [address] documented as of this encounter Visit Diagnoses Not on filedocumented in this encounter Additional Health Concerns Assessment Noted Time PHQ-9 Depression Total Score: 0 03/07/19 23 11:14 AM EST documented as of this encounter Care Teams Forensics Team Director Relationship Specialty Start Date End Date Amy Collier, CEMENT BREAKER-TEMPLATE FITTER [address] [place] [address] PCP - General 11/28/16 documented as of this encounter
--- OUTSIDE RECORDS SUMMARY | 2024-08-24 11:11 | XMS_ITS | Encounter Summary ---
Author Organization [employer] Address [id number] [address] [place] [address] Care Team Providers Care Superintendent Generating Plant Name Role Phone Amy Collier PHARMACY ASSISTANT-DIRT SUPERVISOR Primary Care Provider + Encounter Details Date Type Department Care Team (Late st Contact Info) Description 01/18/2024 Telephone [facility] Physicians Infectious Disease [address] [facility] [address] [place] [address] Shy Bob MA Social History Tobacco Use Types Packs/Day Years Used Date Smoking Tobacco: Never Smokeless Tobacco: Never Alcohol Use Standard Drinks/Week Comments Yes 0 (1 standard drink = 0.6 oz pur e alcohol) Socially AHC Utilities Answer Date Recorded In the past 12 months has [employer] electric, gas, oil, or water company threatened [...] often do you attend chur ch or zoroastrian services? More than 4 times per year 02/27/2022 Do you belong to any clubs o r organizations such as scientology groups, unions, fraternal or athletic groups, or [...] Answer Date Recorded Total Score 0 03/07/2022 [facility] [place] of Occupat ional Health - Occupational Stress [...] Telephone Encounter - Shy Bob MA - 01/18/2024 12:55 PM EST ----- Message from AMEENA Hugo sent at 01/15/2024 2:11 PM EST ----- Regarding: f/u It appears this patient is being followed and managed by [facility] ID - please fax results to them ----- Message ----- From: Shy Bob MA Sent: 01/15/2024 9:18 AM EST To: AMEENA Salazar * Telephone Encounter - Shy Bob MA - 01/18/2024 12:55 PM EST Results faxed. documented in this encounter Plan of Treatment Upcoming Encounters Date Type Department Care Team (Late st Contact Info) Description 08/29/2024 9:30 AM EDT Office Visit [facility] Physicians Plastic and Reconstructive Surgery [address] [facility] [address] [place] [address] Shereen Smallwood PA-C [address], [address] [facility] [place] [address] 10/26/2024 8:30 AM EDT Telephone Visit [facility] Gy[facility] Oncology, A Department of [facility] [address] [place] [phone] Raymond Sepulveda MD [address] [facility], [address] [place] [address] documented as of this encounter Visit Diagnoses Not on filedocumented in this encounter Additional Health Concerns Assessment Noted Time PHQ-9 Depression Total Score: 0 03/07/19 23 11:14 AM EST documented as of this encounter Care Teams Superintendent Generating Plant Relationship Specialty Start Date End Date Amy Collier APRN-DIRT SUPERVISOR [address] [place] [address] PCP - General 11/28/16 documented as of this encounter
--- OUTSIDE RECORDS SUMMARY | 2024-08-24 11:11 | XMS_ITS | Encounter Summary ---
Author Organization [facility] tem Address [id number] [address] [place] [address] Care Team Providers Care Injury/Safety Hazard Assessment Name Role Phone Amy Collier REVERSE UNIT OPERATOR-CHILDREN'S COUNSELOR Primary Care Provider + Encounter Details Date Type Department Care Team (Late st Contact Info) Description 06/16/[address] [facility] Division of [facility] - Interventional Radiology [address] [place] [phone] Guillaume Curiel MD [address] [place] [address] [address] [place] [address] Liver lesion (Primary Dx) Social History Tobacco Use Types Packs/Day Years Used Date Smoking Tobacco: Never Passive Smoke Exposure: Past Smokeless Tobacco: Never Alcohol Use Standard Drinks/Week Comments Yes 0 (1 standard drink = 0.6 oz pur e alcohol) Socially AHC Utilities Answer Date Recorded In the past 12 months has [employer], gas, oil, or water company threatened to [...] often do you attend chur ch or yarsanism services? More than 4 times per year 02/27/2022 Do you belong to any clubs o r organizations such as baptist groups, unions, fraternal or athletic groups, or [...] Answer Date Recorded Total Score 2 03/30/2024 [facility] of Occupat [facility] - Occupational Stress Questionnaire Answer Date Recorded [...] Recorded Do you need help finding a [facility] career center and/or a training program? No 02/27/2022 Hunger Screening Answer Date Recorded Within the past 12 months we worried whether our food would run out before we got money to buy more. Patient Declined 025 Within the past 12 months th e food we bought just didn't last and we didn't have money to get more. Patient Declined 05/31 Purpose - Life Answer Date Recorded I [...] Description 08/29/2024 9:30 AM EDT Office Visit [facility] Physicians Plastic and Reconstructive Surgery [address] [place] [address] [address] [place] [phone] Shereen Smallwood PA-C [address] [facility] [address] [place] [address] 10/26/2024 8:30 AM EDT Telephone Visit [facility] Gynecology Oncology, A Department of [address] [place] [phone] [place] [address] [place] [address], [address] [place] [address] documented as of this encounter Goals Goal Patient Goal Type Associated Problems Recent Progress Patient-Stated? Author return home General Yes Mariah Gonsalez, [place] Note: Evaluation of progress towards goal: progressing, patient will return home at discharge/follow up [facility] Wound care clinic documented as of this encounter Visit Diagnoses Diagnosis Liver lesion- Primary Other specified disorders of liver documented in this encounter Additional Health Concerns Assessment Noted Time PHQ-9 Depression Total Score: 2 03/30/19 25 3:58 PM EST documented as of this encounter Care Teams Injury/Safety Hazard Assessment Relationship Specialty Start Date End Date Amy Collier, REVERSE UNIT OPERATOR-CHILDREN'S COUNSELOR [address] [place] [address] PCP - General 11/28/16 documented as of this encounter
--- OUTSIDE RECORDS SUMMARY | 2024-08-24 11:11 | XMS_ITS | Encounter Summary ---
Author Organization [facility] Address [facility]-[id number] [address] [place] [address] Care Team Providers Care Dean Of Instruction Name Role Phone Amy Collier CREAM DUMPER-BUILDING ARCHITECT Primary Care Provider + Encounter Details Date Type Department Care Team (Late st Contact Info) Description 12/31/2023 Orders Only [facility] Internal Medicine - Family Medicine [address] [place] [phone] Ref Prov, [place] [address] Social History Tobacco Use Types Packs/Day Years Used Date Smoking Tobacco: Never Smokeless Tobacco: Never Alcohol Use Standard Drinks/Week Comments Yes 0 (1 standard drink = 0.6 oz pur e alcohol) Socially [employer] Utilities Answer Date Recorded In the past 12 months has [employer] electric, gas, oil, or water company threatened [...] any clubs o r organizations such as gnosticist groups, unions, fraternal or athletic groups, or [...] Date Recorded Total Score 0 03/07/2022 [facility] [place] of Occupat ional Health - Occupational Stress [...] Recorded Do you need help finding a [facility] and/or a training program? [...] Description 08/29/2024 9:30 AM EDT Office Visit [facility] Physicians Plastic and Reconstructive Surgery [address] [place], [place] [address] [address] [place] [address] Shereen Smallwood PA-C [address], [facility] [address] [place] [phone] 10/26/2024 8:30 AM EDT Telephone Visit [facility] Gynecology Oncology, A Department of [address] [facility] [address] [place] [phone] [place] [address] [place] [address], [address] [place], [place] [phone] documented as of this encounter Procedures Procedure Name Priority Date/Time Associated Diagnosis Comments DIABETES EYE EXAM Routine 12/30/2023 4:01 PM EDT documented in this encounter Results * DIABETES EYE EXAM (12/30/2023 4:01 PM EDT) us Not In System Ref Prov HEALTH MAINTENANCE Final Result MANUALLY TRANSCRIBED RESULTS documented in this encounter Visit Diagnoses Not on filedocumented in this encounter Additional Health Concerns Assessment Noted Time PHQ-9 Depression Total Score: 0 03/07/19 23 11:14 AM EST documented as of this encounter Care Teams Dean Of Instruction Relationship Specialty Start Date End Date Amy Collier, CREAM DUMPER-BUILDING ARCHITECT [address] [place] [address] PCP - General 11/28/16 documented as of this encounter
--- OUTSIDE RECORDS SUMMARY | 2024-08-24 11:11 | XMS_ITS | Encounter Summary ---
Author Organization [facility] Address [facility]-[id number] [address] [place] [address] Care Team Providers Care Screen Operator Name Role Phone Amy Collier GENERAL LITHOGRAPHIC WORKER-FORMING AND ASSEMBLING SUPERVISOR Primary Care Provider + Encounter Details Date Type Department Care Team (Late st Contact Info) Description 01/15/2024 Orders Only [facility] Infectious Disease [address] [facility] [address] [place] [address] External, Scanning Provider Social History Tobacco Use Types Packs/Day Years Used Date Smoking Tobacco: Never Smokeless Tobacco: Never Alcohol Use Standard Drinks/Week Comments Yes 0 (1 standard drink = 0.6 oz pur e alcohol) Socially [facility] Utilities Answer Date Recorded In the past 12 months has [employer] electric, gas, oil, or water company threatened [...] often do you attend chur ch or cheondoism services? More than 4 times per year [...] Answer Date Recorded Total Score 0 03/07/2022 [facility] [place] of Occupat ional Health - Occupational Stress [...] 9:30 AM EDT Office Visit [facility] Physicians Plastic and Reconstructive Surgery [address] [place] [address] [address] [place] [address] Shereen Smallwood PA-C [address] [facility], [facility] [address] [place] [phone] 10/26/2024 8:30 AM EDT Telephone Visit [facility] Gynecology Oncology, A Department of [address] [place] [phone] [place] [address] [place] [address], [address] [place], [place] [phone] documented as of this encounter Procedures Procedure Name Priority Date/Time Associated Diagnosis Comments PLATELET COUNT Routine 01/14/2024 WBC Routine 01/14/2024 CREATININE, SERUM Routine 01/14/2024 documented in this encounter Results * Platelet count (01/14/2024) External Platelet Count 181 MANUALLY TRANSCRIBED RESULTS Blood 01/14/2024 us Scanning Provider External LAB BLOOD ORDERABLES Final Result Performing Organization Address [facility] de Phone Number MANUALLY TRANSCRIBED RESULTS * (ABNORMAL) WBC (01/14/2024) External Wbc Count 3.8(A) 4.0 - 11.0 MANUALLY TRANSCRIBED RESULTS Blood 01/14/2024 us Scanning Provider External LAB BLOOD ORDERABLES Final Result Performing Organization Address [facility] de Phone Number MANUALLY TRANSCRIBED RESULTS * (ABNORMAL) Creatinine includes GFR, serum (01/14/2024) External Creatinine 1.12(A) 0.55 - 1.02 MANUALLY TRANSCRIBED RESULTS Blood 01/14/2024 us Scanning Provider External LAB BLOOD ORDERABLES Final Result Performing Organization Address [facility] de Phone Number MANUALLY TRANSCRIBED RESULTS documented in this encounter Visit Diagnoses Not on filedocumented in this encounter Additional Health Concerns Assessment Noted Time PHQ-9 Depression Total Score: 0 03/07/19 23 11:14 AM EST documented as of this encounter Care Teams Screen Operator Relationship Specialty Start Date End Date Amy Collier APRN-FORMING AND ASSEMBLING SUPERVISOR [address] [place] [address] PCP - General 11/28/16 documented as of this encounter
--- OUTSIDE RECORDS SUMMARY | 2024-08-24 11:12 | XMS_ITS | Clinical Summary ---
Author Organization [facility] Address [address] [place] [address] Care Team Providers Care Workers Compensation Coordinator Name Role Phone Randy Lu MD Primary Care Provider [phone] Allergies Active Allergy Reactions Criticality Noted Date Comments Ceftaroline 06/01/2024 Daptomycin Other 11/28/2023 Other Reaction(s): Flushing Doxycycline Rash Low 12/09/2023 Meperidine Swelling,Unknown High 03/17/2018 Other Reaction(s): Other, Unknown Meperidine Hcl Unknown 12/31/2022 Tetracycline 01/25/2024 Tigecycline Hives 12/07/2023 Rash vomiting Vancomycin 01/25/2024 Other Reaction(s): Other Intolerance: experienced acute kidney injury during a hospitalization, suspected due to vancomycin. Wound Dressing Adhesive Rash,Unknown,Itchin g Low 12/31/2022 Medications metoprolol succinate XL (Toprol-XL) 100 MG 24 hr tablet Take 100 mg by mouth in the morning. Active potassium chloride CR (Klor-Con) 10 MEQ ER tablet TAKE 4 TABLETS (40 MEQ) BY MOUTH ONCE DAILY FOR 2 DAYS. DO NOT CRUSH, CHEW, OR SPLIT. Active gabapentin (Neurontin) 300 MG capsule TAKE ONE CAPSULE BY MOUTH TWICE A DAY FOR HOT FLASHES 05/02/2023 Active FeroSul 325 (65 Fe) MG tablet TAKE 1 TABLET (325 MG TOTAL) BY MOUTH IN THE MORNING. 06/04/2022 Active prochlorperazin e (Compazine) 10 MG tablet TAKE ONE TABLET BY MOUTH THREE TIMES A DAY NEEDED FOR NAUSEA 04/21/2023 Active gabapentin (Neurontin) 300 MG capsule Take 300 mg by mouth in the morning and 300 mg before bedtime. Active pyridoxine (B-6) 50 MG tablet Take 50 mg by mouth in the morning. 03/16/2024 Active Eliquis 5 MG tablet Take 5 mg by mouth in the morning and 5 mg in the evening. 09/18/2023 Active Active Problems Problem Noted Date Diagnosed Date Retinal tear of right eye 12/30/2023 Vitreous hemorrhage of right eye 12/30/2023 Complex ovarian cyst 05/26/2023 Invasive ductal carcinoma of breast, right 05/25 Well woman exam with routine gynecological exam 05/26/2023 Encounters Date Type Department Care Team Description 06/07/2024 Orders Only [facility] [address] [place] [phone] Nahomy Watson LPN 06/01/2024 11:00 AM EDT Office Visit [facility] [address] [place] [address] Evan Thompson DO Well woman exam with routine gynecological exam; Breast cancer screening by mammogram; Postmenopausal state 06/01/2024 Clinisync Result Encounter [facility] External Department Unsolicited Evan Thompson, 06/01/2024 Bamboo flowsheet [facility] [address] [place] [phone] Evan Thompson, 05/30/2024 Telephone [facility] [address] [place] [phone] Oralia Fernandez LPN from Last 3 Months Family History * Patient is adopted Medical History Relation Name Comments Heart disease Father Relation Name Status Comments Father Mother Alive Social History Tobacco Use Types Packs/Day Years Used Date Smoking Tobacco: Never Smokeless Tobacco: Never Tobacco Cessation:Counseling Given: Not Answered Alcohol Use Standard Drinks/Week Comments Never 0 (1 standard drink = 0.6 oz pure alcohol) Caffeine intake: 1-2 cups per day Comments No Sex and Gender Information Value Date Recorded Sex Assigned at Not on file Legal Sex Female 6:51 PM EDT Gender Identity Not on file Sexual Orientation Not on file Last Filed Vital Signs Vital Sign Reading Time Taken Comments Blood Pressure 110/68 06/01/2024 11:21 AM EDT Pulse - - Temperature - - Respiratory Rate - - Oxygen Saturation - - Inhaled Oxygen Concentration - - Weight 85.5 kg (188 lb 6.4 oz) 06/01/2024 11:21 AM EDT Height 180.3 cm (5' 11 ) 01/25/2024 10:07 AM EST Body Mass Index 26.28 01/25/2024 10:07 AM EST Plan of Treatment Upcoming Encounters Date Type Department Care Team (Late st Contact Info) Description 06/12/2025 10:00 AM EDT Office Visit [facility] [address] [place] [phone] Evan Thompson, [address] [place] [address] Health Maintenance Due Date Last Done Comments CT Colonography 1970 Colonoscopy 1970 FIT 1970 FOBT 1970 Sigmoidoscopy 1970 Colorectal Cancer Screening 06/06/2024 FIT-DNA 06/06/2024 06/06/2021 Mammogram 10/15/2024 10/16/2023, 03/0 10/2023, 12/27/2021, Additional history exists Influenza Vaccine (Season Ended) 2024 11/20/2019, 11/14/2019, 12/13/2018, Additional history exists Pap Smear 06/02/2027 06/01/2024, 04/0 03/2023, 12/27/2021 Cervical Cancer Screening 05/31/2028 HPV/Cotest 05/31/2028 Procedures Procedure Name Priority Date/Time Associated Diagnosis Comments POCT URINALYSIS DIPSTICK Routine 06/01/2024 11:31 AM EDT Well woman exam with routine gynecological exam IGP,APTIMA HPV,AGE GDLN Routine 06/01/2024 11:08 AM EDT PAP SMEAR Routine 06/01/2024 12:00 AM EDT BI MAMMOGRAM SCREENING BILATERAL Routine 12/27/2021 12:00 PM EDT from Last 3 Months or Most Recently Relevant to Health Maintenance Results * (ABNORMAL) POCT urinalysis dipstick manually resulted (06/01/2024 11:31 AM EDT) Color, UA Yellow Clarity, UA Clear Glucose, UA Negative Negative - 2000(110) ++++ mg/dL Bilirubin, UA Negative Negative - 4(70) +++ mg/dL Ketones, UA Positive Negative - 160(16) ++++ mg/dL Comment:trace Spec Grav, UA 1.015 1 - 1.03 Blood, UA Negative Negative - 50 Jerod/mcL pH, UA 6.5 5 - 9 Protein, UA Negative Negative - 2000(20) ++++ mg/dL Urobilinogen, UA 0.2 0.2 - 12 mg/dL Leukocytes, UA Negative Negative - 500+++ Sofya/mcL Nitrite, UA Negative Negative - Positive Urine 06/01/2024 11:3 1 AM EDT Evan Thompson DO POINT OF CARE TEST ENTER/EDIT OR DERABLES Final Result * IGP,APTIMA HPV,AGE GDLN (06/01/2024 11:08 AM EDT) AGE GDLN ACOG TESTING Note . [facility] Comment: TESTS RESULT FLAG UNITS REF RANGE LAB Clinician Provided Cytology Information Source.............Vagina No. of containers..01 ThinPrep Vial Age Kristen RUIZ Christie... FLAG LEGEND: L-Low Normal,H-High Normal,LL-Alert Low,HH-Alert High <-Panic Low,>-Panic High,A-Abnormal,AA-Critical Abnormal Performed at: 01 =[facility] [address] [place] [address] Apolonia Mayorga MD, IGP, APTIMA HPV, RFX 16/18,45 Note . [facility] Comment: TESTS RESULT FLAG UNITS REF RANGE LAB DIAGNOSIS: 02 NEGATIVE FOR INTRAEPITHELIAL LESION OR MALIGNANCY. Specimen adequacy: 02 Satisfactory for evaluation. Performed by: Karina Goodwin, Plug Stitcher (ASCP) . 02 Note: Note 03 The Pap smear is a screening test designed to aid in the detection of premalignant and malignant conditions of the uterine cervix. It is not a diagnostic procedure and should not be used as the sole means of detecting cervical cancer. Both false-positive and false-negative reports do occur. Test Methodology: Note 03 This liquid based ThinPrep(R) pap test was screened with the use of an image guided system. HPV Genotype Reflex Note 02 Criteria not met, HPV Genotype not performed. FLAG LEGEND: L-Low Normal,H-High Normal,LL-Alert Low,HH-Alert High <-Panic Low,>-Panic High,A-Abnormal,AA-Critical Abnormal Performed at: 02 [facility] [place] [facility] [address] [place] [address] Acosta Box MD, [address] [address] Apolonia Mayorga MD, HPV APTIMA Negative Negative TB Comment: This nucleic acid amplification test detects fourteen high- risk HPV types (16,18,31,33,35,39,45,51,52,56,58,59,66,68) without differentiation. Performed at: =G - [facility] [address] [id number] Distribution Center Associate: Apolonia Mayorga MD, Phone: [phone] Performed at: [facility] [address] [place] [id number] Distribution Center Associate: Acosta Box MD, Phone: [phone] 06/01/2024 11:0 8 AM EDT 06/01/2024 3:15 PM EDT Narrative [facility] - 06/03/2024 10:07 PM EDT SPATULA-ALONE VAGINA Evan Thompson DO LAB BLOOD ORDERABLES Final Resul t Performing Organization Address [facility]/ZIP Co de Phone Number [facility] TB * Pap Smear (06/01/2024 12:00 AM EDT) Swab Cervical swab / Unknown Jay Nurse [facility] LAB CYTOLOGY ORDERABLES Final Result EXTERNAL LAB * Bilateral screening mammogram (12/27/2021 12:00 PM EDT) Anatomical Region Laterality Modality Breast Bilateral Mammography Narrative 12/27/2021 12:00 PM EDT PERFORMED AT [facility] LOCATION:[id number] Procedure Note CONVERSION, GENERIC - 09/05/2022 PERFORMED AT [facility] LOCATION:[id number] Bo Melendez MD IMG BI PROCEDURES Final Resul t from Last 3 Months or Most Recently Relevant to Health Maintenance Insurance [employer] Care Teams Workers Compensation Coordinator Relationship Specialty Start Date End Date Randy Lu MD PCP - General Family Medicine 04/02/23
--- OUTSIDE RECORDS SUMMARY | 2024-08-24 11:12 | XMS_ITS | Encounter Summary ---
Author Organization [employer] Address [facility]-[id number] [address] [place] [address] Care Team Providers Care Instructor Traffic Safety Name Role Phone Amy Collier SECURITY PATROL OFFICER-AIRLINE MECHANIC Primary Care Provider + Reason for Visit * Reason Comments Med Refill Encounter Details Date Type Department Care Team (Late Contact Info) Description 01/24/2022 Refill [facility] Internal Medicine - Family Medicine [address] [place] [phone] Lynda Manule, SECURITY PATROL OFFICER-TATTOO AND BODY ARTIST [address] [place] [address] Social History Tobacco Use Types Packs/Day Years Used Date Smoking Tobacco: Never Smokeless Tobacco: Never Alcohol Use Standard Drinks/Week Comments Yes 0 (1 standard drink = 0.6 oz pur e alcohol) Childcare Answer Date Recorded Childcare Unknown 08/11/2018 Employment Answer Date Recorded Employment Unknown 08/11/2018 Purpose - Life Answer Date Recorded Purpose and direction in life Unknown Comments No Sex and Gender Information Value Date Recorded Sex Assigned at Not on file Legal Sex Female 12:12 PM EDT Gender Identity Not on file Sexual Orientation Not on file documented as of this encounter Plan of Treatment Upcoming Encounters Date Type Department Care Team (Late Contact Info) Description 08/29/2024 9:30 AM EDT Office Visit [facility] Plastic and Re[facility]ive [facility] [address] [facility] [place] [address] Shereen Smallwood, PANicolasC [address] [facility] [place] [address] 10/26/2024 8:30 AM EDT Telephone Visit [facility], A Department of [address] [place] [phone] Raymond Sepulveda MD [facility] [facility], [address] [place] [address] documented as of this encounter Visit Diagnoses Not on filedocumented in this encounter Additional Health Concerns Infection Onset Date Last Indicated Resolved Time Influenza 03/07/2022 03/07/2022 03/14/2022 11:1 2 PM EST documented as of this encounter Care Teams Instructor Traffic Safety Relationship Specialty Start Date End Date Amy Collier APRN-AIRLINE MECHANIC [address] [place] [address] PCP - General 11/28/16 documented as of this encounter
--- OUTSIDE RECORDS SUMMARY | 2024-08-24 11:12 | XMS_ITS | Encounter Summary ---
Author Organization [facility] Address [facility]-[id number] [address] [place] [address] Care Team Providers Care Relief Worker Name Role Phone Amy Collier INFORMATION TECHNOLOGY PROGRAM MANAGER-DOCUMENTATION WRITER Primary Care Provider + Encounter Details Date Type Department Care Team (Late st Contact Info) Description 05/23/2024 Orders Only [facility] Internal Medicine - Family Medicine [address] [place] [phone] Ref Prov, [place] [address] Social History Tobacco Use Types Packs/Day Years Used Date Smoking Tobacco: Never Passive Smoke Exposure: Past Smokeless Tobacco: Never Alcohol Use Standard Drinks/Week Comments Yes 0 (1 standard drink = 0.6 oz pur e alcohol) Socially [employer] Utilities Answer Date Recorded In the past 12 months has e electric, gas, oil, or water company threatened to shut off services in your home? No 05/03/2024 Social Connection and Isolat ion Panel [NHANES] Answer Date Recorded In a typical week, how many times do you talk on the phone with family, friends, or neighbors? Twice a week 02/27/2022 How often do you get togethe r with friends or relatives? Three times a week 02/27/2022 How often do you attend chur ch or restoration services? More than 4 times per year 02/27/2022 Do you belong to any clubs o r organizations such as restorationist groups, unions, fraternal [...] Answer Date Recorded Total Score 2 03/30/2024 [facility] of Occupat ional Health - Occupational [...] medical appointments or from getting medications? No 05/2024 In the past 12 months, has l ack of transportation kept you from meetings, work, or from getting things needed for daily living? No 05/03/2024 Housing Instability Answer Date Recorde d Are you worried or concerned that in the next two months you may not have stable housing that you own, rent or stay in as a part of a household? No 05/03/2024 Childcare Answer Date Recorded Do problems getting child ca re make it difficult for you to work or study? No 02/27/2022 Employment Answer Date Recorded Do you need help finding a [facility] and/or a training program? No 02/27/2022 Hunger Screening Answer Date Recorded Within the past 12 months we worried whether our food would run out before we got money to buy more. Never True 05/12/2024 Within the past 12 months th e food we bought just didn't last and we didn't have money to get more. Never True 05/12/2024 Purpose - Life Answer Date Recorded I [...] 08/29/2024 9:30 AM EDT Office Visit [facility] Plastic and Reconstructive Surgery [address] [place] [address] [address] [place] [address] Shereen Smallwood PA-C [address] [facility] [address] [place] [address] 10/26/2024 8:30 AM EDT Telephone Visit [facility] Gynecology Oncology, A Department of [address] [place] [phone] Raymond Sepulveda MD [address] [facility], [address] [place], [place] [phone] documented as of this encounter Goals Goal Patient Goal Type Associated Problems Recent Progress Patient-Stated? Author return home General Yes Mariah Gonsalez, RN Note: Evaluation of progress towards goal: progressing, patient will return home at discharge/follow up [facility] documented as of this encounter Procedures Procedure Name Priority Date/Time Associated Diagnosis Comments XR CHEST 1 VW Routine 05/22/2024 1:19 PM EDT MULTIPLE LABS Routine 05/22/2024 11:03 AM EDT documented in this encounter Results * X-ray chest 1 view (05/22/2024 1:19 PM EDT) Anatomical Region Laterality Modality Body, Chest N/A Computed Radiogr aphy us Not In System Ref Prov IMG DIAGNOSTIC IMAGING OR DERABLES Final Result * Multiple labs (05/22/2024 11:03 AM EDT) us Not In System Ref Prov [facility] IMAGING Final Res ult MANUALLY TRANSCRIBED RESULTS documented in this encounter Visit Diagnoses Not on filedocumented in this encounter Additional Health Concerns Assessment Noted Time PHQ-9 Depression Total Score: 2 03/30/19 25 3:58 PM EST documented as of this encounter Care Teams Relief Worker Relationship Specialty Start Date End Date Amy Collier APRN-DOCUMENTATION WRITER [address] [place] [address] PCP - General 11/28/16 documented as of this encounter
--- OUTSIDE RECORDS SUMMARY | 2024-08-24 11:12 | XMS_ITS | Encounter Summary ---
Author Organization [employer] Sys tem Address [id number] [address] [place] [address] Care Team Providers Care Unit Assembler Name Role Phone Amy Collier CRIMINAL JUSTICE SOCIAL WORKER-PIPED POCKET MACHINE OPERATOR Primary Care Provider + Encounter Details Date Type Department Care Team (Late st Contact Info) Description 08/02/2024 Telephone [facility] [address] [facility] [address] [place] [address] Viviane Lopez CMA Social History Tobacco Use Types Packs/Day Years Used Date Smoking Tobacco: Never Passive Smoke Exposure: Past Smokeless Tobacco: Never Alcohol Use Standard Drinks/Week Comments Yes 0 (1 standard drink = 0.6 oz pur e alcohol) Socially AHC Utilities Answer Date Recorded In the past 12 months has [employer] electric, gas, oil, or water [employer] threatened to shut off services in your [...] often do you attend chur ch or orthodox services? More than 4 times per year 02/27/2022 Do you belong to any clubs o r organizations such as sikh groups, unions, fraternal or athletic groups, or [...] PHQ-2 Answer Date Recorded Total Score 0 07/14/2024 [facility] [place] of Occupat ional Health - Occupational Stress [...] got money to buy more. Never True 07/28/2024 Within the past 12 months th e food we bought just didn't last and we didn't have money to get more. Never True 07/28/2024 Purpose - Life Answer Date Recorded I [...] Telephone Encounter - Viviane Lopez CMA - 08/02/2024 9:53 AM EDT 07/27/24- AFB positive Tissue of left Breast documented in this encounter Plan of Treatment Upcoming Encounters Date Type Department Care Team (Late st Contact Info) Description 08/29/2024 9:30 AM EDT Office Visit [facility] Plastic [facility] Re[facility]ive [facility] [address] [facility] [address] [place] [address] Shereen Smallwood, PANicolasC [address] [facility] [address], [facility] [address] [place] [address] 10/26/2024 8:30 AM EDT Telephone Visit [facility] Gynecology Oncology, A Department of [facility] [address] [facility] [address] [place] [phone] [place] [address] [place] [address], [address] [place] [address] documented as of this encounter Goals Goal Patient Goal Type Associated Problems Recent Progress Patient-Stated? Author return home General Yes Mariah Gonsalez, RN Note: Evaluation of progress towards goal: progressing, patient will return home at discharge/follow up [facility] documented as of this encounter Visit Diagnoses Not on filedocumented in this encounter Additional Health Concerns Assessment Noted Time PHQ-9 Depression Total Score: 0 07/15/19 25 8:53 AM EDT documented as of this encounter Care Teams Unit Assembler Relationship Specialty Start Date End Date Amy Collier APRN-PIPED POCKET MACHINE OPERATOR [address] [place] [address] PCP - General 11/28/16 documented as of this encounter
--- OUTSIDE RECORDS SUMMARY | 2024-08-24 11:12 | XMS_ITS | Encounter Summary ---
Author Organization [facility] Address [address] [place] [address] Care Team Providers Care Dental Internship Name Role Phone Randy Lu MD Primary Care Provider Encounter Details Date Type Department Care Team (Late Contact Info) Description 04/08/2024 Abstract [facility] [address] [place] [address] Evan Thompson DO [facility] [place] [place] [id number] Social History Tobacco Use Types Packs/Day Years Used Date Smoking Tobacco: Never Smokeless Tobacco: Never Alcohol Use Standard Drinks/Week Comments Never 0 [...] 06/12/2025 10:00 AM EDT Office Visit [facility] [address] [place] [address] Evan Thompson DO [facility] [address] [place] [id number] documented as of this encounter Visit Diagnoses Not on filedocumented in this encounter Care Teams Dental Internship Relationship Specialty Start Date End Date Randy Lu MD PCP - General Family Medicine 04/02/23 documented as of this encounter
--- OUTSIDE RECORDS SUMMARY | 2024-08-24 11:12 | XMS_ITS | Encounter Summary ---
Author Organization [employer] Sys tem Address [facility]-[id number] [address] [place] [address] Care Team Providers Care Branch General Manager Name Role Phone Amy Collier DRIVER ENGINEER-FARMWORKER ANIMAL Primary Care Provider + Reason for Referral * Diagnostic Imaging (Routine) - Pending Review Specialty Diagnoses / Procedures Referred By Contac t Referred To Contact Radiology Diagnoses Pain Procedures NON [facility] PET CT WHOLE BODY [facility] [address] [place] [phone] Phone: tel: fax: Referral ID Status Reason Start Date Expiration Date V isits Requested Visits Authorized [id number] Pending Review 06/12/2024 06/12/2025 1 1 Encounter Details Date Type Department Care Team (Late st Contact Info) Description 06/12/2024 Orders Only [facility] [address] [place] [phone] Transcribe, Orders Support User Pain (Primary Dx) Social History Tobacco Use Types Packs/Day Years Used Date Smoking Tobacco: Never Passive Smoke Exposure: Past Smokeless Tobacco: Never Alcohol Use Standard Drinks/Week Comments Yes 0 (1 standard drink = 0.6 oz pur e alcohol) Socially C Utilities Answer Date Recorded In the past [...] often do you attend chur ch or catholic services? More than 4 times per year 02/27/2022 Do you belong to any clubs o r organizations such as nondenominational groups, unions, fraternal or athletic groups, or [...] Answer Date Recorded Total Score 2 03/30/2024 [facility] of Occupat ional Health - [...] Recorded Do you need help finding a [facility] career center and/or a training [...] Description 08/29/2024 9:30 AM EDT Office Visit [facility] Plastic and Reconstructive Surgery [address] [facility] [address] [place] [address] Shereen Smallwood PA-C [address], [facility] [address] [place] [address] 10/26/2024 8:30 AM EDT Telephone Visit [facility] Gynecology Oncology, A Department of [facility] [address] [facility] [place] [phone] Raymond Sepulveda MD [address] [facility], [address] [place] [address] documented as of this encounter Goals Goal Patient Goal Type Associated Problems Recent Progress Patient-Stated? Author return home General Yes Mariah Gonsalez, RN Note: Evaluation of progress towards goal: progressing, patient will return home at discharge/follow up [facility] Wound care clinic documented as of this encounter Results * NON [facility] PET CT WHOLE BODY (06/03/2024 11:05 AM EDT) us Scanning Provider External IMG PET ORDERABLES Fi nal Result documented in this encounter Visit Diagnoses Diagnosis Pain- Primary Generalized pain documented in this encounter Additional Health Concerns Assessment Noted Time PHQ-9 Depression Total Score: 2 03/30/19 25 3:58 PM EST documented as of this encounter Care Teams Branch General Manager Relationship Specialty Start Date End Date Amy Collier APRN-FARMWORKER ANIMAL [address] [place] [address] PCP - General 11/28/16 documented as of this encounter
--- OUTSIDE RECORDS SUMMARY | 2024-08-24 11:12 | XMS_ITS | Encounter Summary ---
Author Organization [employer] Sys [employer] Address [facility] [place] [place]-[id number] [address] [place] [address] Care Team Providers Care Electric Distribution Engineer Name Role Phone Amy Collier DECK CADET-BREAKFAST ATTENDANT Primary Care Provider + Encounter Details Date Type Department Care Team (Late Contact Info) Description 12/26/2021 Orders Only [facility] [address] [facility] [place] [address] Ref Prov, [place] [address] Social History Tobacco Use Types Packs/Day Years [...] on file Sexual Orientation Not on file COVID-19 Exposure Response Date Recorded In the last month, have you been in contact with someone who was confirmed or suspected to have Coronavirus / COVID-19? No / Unsure 11/27/2021 11:02 AM EDT documented as of this encounter Plan of Treatment Upcoming Encounters Date Type Department Care Team (Late Contact Info) Description 08/29/2024 9:30 AM EDT Office Visit [facility] [address] [place] [address] Shereen Smallwood PA-C [address], [address] [place] [address] 10/26/2024 8:30 AM EDT Telephone Visit [facility], A Department of [facility] [address] [facility] [address] [place] [address] Raymond Sepulveda MD [address] [facility], [address] [place] [address] documented as of this encounter Procedures Procedure Name Priority Date/Time Associated Diagnosis Comments MAMMOGRAPHY Routine 12/13/2021 documented in this encounter Results * MAMMOGRAPHY (12/13/2021) Anatomical Region Laterality Modality Other us Not In System Ref Prov HEALTH MAINTENANCE Final Result documented in this encounter Visit Diagnoses Not on filedocumented in this encounter Additional Health Concerns Infection Onset Date Last Indicated Resolved Time Influenza 03/07/2022 03/07/2022 03/14/2022 11:1 2 PM EST documented as of this encounter Care Teams Electric Distribution Engineer Relationship Specialty Start Date End Date Amy Collier, DECK CADET-BREAKFAST ATTENDANT [address] [place] [address] PCP - General 11/28/16 documented as of this encounter
--- OUTSIDE RECORDS SUMMARY | 2024-08-24 11:12 | XMS_ITS | Encounter Summary ---
Author Organization [employer] Address [facility] [place]-[id number] [address] [place] [address] Care Team Providers Care Structural Layout Worker Name Role Phone Amy Collier [employer] HEAD FORMER Primary Care Provider + Encounter Details Date Type Department Care Team (Late st Contact Info) Description 02/25/2022 Telephone [facility] - Family Medicine [address] [place] [address] Radha Tineo MA Social History Tobacco Use Types Packs/Day Years Used Date Smoking Tobacco: Never Smokeless Tobacco: Never Alcohol Use Standard Drinks/Week Comments Yes 0 (1 standard drink = 0.6 oz pur e alcohol) Social Connection and Isolat ion Panel [NHANES] Answer Date Recorded In a typical week, how many times do you talk on the phone with family, friends, or neighbors? Twice a week 02/27/2022 How often do you get togethe r with friends or relatives? Three times a week 02/27/2022 How often do you attend [facility] or lutheran services? More than 4 times per year 02/27/2022 Do you belong to any clubs o r organizations such as holiness groups, unions, fraternal or athletic groups, or [...] PHQ-2 Answer Date Recorded Total Score 0 02/27/2022 [facility] of Occupat ional Health - Occupational Stress [...] medical appointments or from getting medications? No 01/31 In the past 12 months, has l ack of transportation kept you from meetings, work, or from getting things needed for daily living? No 02/27/2022 Childcare Answer Date Recorded Do problems getting child ca re make it difficult for you to work or study? No 02/27/2022 Employment Answer Date Recorded Do you need help finding a [facility] career center and/or a training program? No 02/27/2022 Hunger Screening Answer Date Recorded Within the past 12 months we worried whether our food would run out before we got money to buy more. Never True 02/27/2022 Within the past 12 months th e food we bought just didn't last and we didn't have money to get more. Never True 02/27/2022 Purpose - Life Answer Date Recorded I have a purpose and direction in my life. Agree 02/27/2022 Comments No Sex and Gender Information Value Date Recorded Sex Assigned at Not on file Legal Sex Female 12:12 PM EDT Gender Identity Not on file Sexual Orientation Not on file COVID-19 Exposure Response Date Recorded In the last month, have you been in contact with someone who was confirmed or suspected to have Coronavirus / COVID-19? No / Unsure 01/31/2022 9:02 AM EST documented as of this encounter Functional Status * Audit-C Score Answer Date of Assessment Author 4 02/27/2022 3:53 PM EST Mychart, Generic * Q1: How often do you have a drink containing alcohol? Answer Date of Assessment Author 2-3 times a week 02/27/2022 3:53 PM EST Mychart, Generic * Q2: How many drinks containing alcohol do you have on a typical day when you are drinking? Answer Date of Assessment Author 1 or 2 02/27/2022 3:53 PM EST Mychart, Generic * Q3: How often do you have six or more drinks on one occasion? Answer Date of Assessment Author Less than monthly 02/27/2022 3:53 PM EST Mychart , Generic documented as of this encounter Miscellaneous Notes * Telephone Encounter - Radha Tineo MA - 02/25/2022 9:31 AM EST She called and said she began having symptoms on Thursday and tested negative for Covid at that time.She tested yesterday again and was positive. She was wondering if there is anything she needs to take? * Telephone Encounter - AMEENA Garcia - 02/25/2022 9:31 AM EST OTC tylenol for now but you can put her in for telehealth for tomorrow so we can chat about how sheis feeling and consider any Rx * Telephone Encounter - Radha Tineo MA - 02/25/2022 9:31 AM EST Patient notified and understands. Transferred to [facility] to get scheduled for a telehealth. * Telephone Encounter - Christie Kwok - 02/25/2022 9:31 AM EST Pt said she is feeling better and does not wish to schedule an appt. She will call back if her symtoms do not get any better documented in this encounter Plan of Treatment Upcoming Encounters Date Type Department Care Team (Late st Contact Info) Description 08/29/2024 9:30 AM EDT Office Visit [facility]icians Plastic and Reconstructive Surgery [address] [facility] [address] [place] [phone] Shereen Smallwood, PA-C [address] [facility] [address] [place] [phone] 10/26/2024 8:30 AM EDT Telephone Visit [facility] Gynecology Oncology, A Department of [place] [address] [facility] [address] [place] [address] Raymond Sepulveda MD [address] [facility], [address] [place], [place] [phone] documented as of this encounter Visit Diagnoses Not on filedocumented in this encounter Additional Health Concerns Infection Onset Date Last Indicated Resolved Time Influenza 03/07/2022 03/07/2022 03/14/2022 11:1 2 PM EST Assessment Noted Time PHQ-9 Depression Total Score: 2 02/01/20 22 9:21 AM EST documented as of this encounter Care Teams Structural Layout Worker Relationship Specialty Start Date End Date Amy Collier, [employer] HEAD FORMER [address] [place] [address] PCP - General 11/28/16 documented as of this encounter
--- OUTSIDE RECORDS SUMMARY | 2024-08-24 11:12 | XMS_ITS | Encounter Summary ---
Author Organization [facility] Address [facility] [place][id number] [address] [place] [address] Care Team Providers Care Operations Administrator Name Role Phone Emelia Collier ANIMAL LABORATORY TECHNICIAN-RAILROAD DINING CAR STEWARD/STEWARDESS Primary Care Provider + Reason for Visit * Reason Onset Date Comments Transition Of Care 08/02/2024 Encounter Details Date Type Department Care Team (Late st Contact Info) Description 08/02/2024 Telephone [facility]icians [facility] [address] [place] [address] Joelle Betancourt, wafer fab operator Of Care Social History Tobacco Use Types Packs/Day Years [...] often do you attend chur ch or evangelical services? More than 4 times per year 02/27/2022 Do you belong to any clubs o r organizations such as zoroastrian groups, unions, fraternal or athletic groups, or [...] Answer Date Recorded Total Score 0 07/14/2024 [facility] of Occupat ional Health - [...] Do you need help finding a [facility] career center and/or a training program? [...] encounter Miscellaneous Notes * Telephone Encounter - Joelle Betancuort RN - 08/02/2024 1:01 PM EDT Hospital Discharge Follow Up Call (This is not a billable TCM) Transition of Care (*required) *Additional Questions/Concerns Requiring PCP Follow-Up:Needs to schedule TCM f/u by 08.11.24. Discussed with patient. States she will call to schedule. This documentation is being used for Transition of Care purposes: Yes Goal: Patient will demonstrate a safe transition from hospital to home. Diagnosis on Discharge: Mycobacterium abscessus infection Discharge Specialty: Infectious Disease *Name of Discharging Facility: [facility]. Date of Facility Discharge: 07.27-07.29.24 Date of Interactive Contact and Name of Assembly Line Upholsterer: 08.02.24 [id number] spoke with patient. *Medication Review Completed: No START taking: acetaminophen (TYLENOL) diazePAM (VALIUM) docusate sodium (COLACE) oxyCODONE (ROXICODONE) STOP taking: anastrozole 1 mg chemo tablet (ARIMIDEX) VERZENIO 150 mg chemo tablet (abemaciclib) Medication Reconciliation Questions/Concerns: Discussed new medication with patient. States she has medication and is taking as ordered. *Follow Up Appointments with Providers: Primary: EMELIA COLLIER APRN-ESPERANZA [phone] TBD Specialty: 08.03.24 0900 Shereen [facility] Physicians Plastic and Reconstructive Surgery Specialty: 08.16.24 1600 [facility] Infectious Disease - [place], Herman, DO Review of Pending Lab/Diagnostic Tests and Plan for Completion: none Assessment and Support of Treatment Regimen Adherence and Medication Management: States she is doing good . Denies any new or worsening symptoms. Denies MOJICA, dizziness, SOB, fever, swelling, nausea. Appetite is good . Elimination is WNL. Sleep is really good . Mood is good . Education Provided by ACN to Support Self-Management, Independent Living and ADLs: Reports BID dressing changes are going good, no issues . She starts with wound care clinic today. Pt reviewed discharge instructions. No questions. States she has help at home if needed. No DME needs. No transportation needs. No barriers to self-mgt noted. Encouraged to contact PCP office for any worsening or new symptoms. Verbalizes understanding. Communication with Home Health Agencies and Other Services Utilized/Needed by the Patient: none * Telephone Encounter - Nat Javed CMA - 08/02/2024 1:01 PM EDT Patient is scheduled for her TCM on August [address] Ortiz documented in this encounter Plan of Treatment Upcoming Encounters Date Type Department Care Team (Late st Contact Info) Description 08/29/2024 9:30 AM EDT Office Visit [facility] Physicians Plastic and Reconstructive Surgery [facility] [address] [facility] [address] [place] [address] Shereen Smallwood, PANicolasC [address], [facility] [address] [place] [address] 10/26/2024 8:30 AM EDT Telephone Visit [facility] Gynecology Oncology, A Department of [place] [address] [address] [facility] [address] [place] [address] Raymond Sepulveda MD [address] [facility], [address] [place] [address] documented as of this encounter Goals Goal Patient Goal Type Associated Problems Recent Progress Patient-Stated? Author return home General Yes Mariah Gonsalez, RN Note: Evaluation of progress towards goal: progressing, patient will return home at discharge/follow up [facility] Wound care clinic documented as of this encounter Visit Diagnoses Not on filedocumented in this encounter Additional Health Concerns Assessment Noted Time PHQ-9 Depression Total Score: 0 07/15/19 25 8:53 AM EDT documented as of this encounter Care Teams Operations Administrator Relationship Specialty Start Date End Date Emelia Collier, ANIMAL LABORATORY TECHNICIAN-RAILROAD DINING CAR STEWARD/STEWARDESS [address] [place] [address] PCP - General 11/28/16 documented as of this encounter
--- OUTSIDE RECORDS SUMMARY | 2024-08-24 11:12 | XMS_ITS | Encounter Summary ---
Author Organization [employer] Address [facility] [place]-[id number] [address] [place] [address] Care Team Providers Care Pipeline Systems Operator Name Role Phone Amy Collier ROTOGRAVURE PRESS OPERATOR-BLOOD BANK ATTENDANT Primary Care Provider + Encounter Details Date Type Department Care Team (Late st Contact Info) Description 08/02/2024 Telephone [facility] - Family Medicine [address] [place] [address] Mela Berrios RN Social History Tobacco Use Types Packs/Day Years Used Date Smoking Tobacco: Never Passive Smoke Exposure: Past Smokeless Tobacco: Never Alcohol Use Standard Drinks/Week Comments Yes 0 (1 standard drink = 0.6 oz pur e alcohol) Socially [facility] Utilities Answer Date Recorded In the past 12 months has [employer] electric, gas, oil, or water company threatened [...] Answer Date Recorded Total Score 0 07/14/2024 [facility] of Occupat ional Health - Occupational Stress [...] encounter Miscellaneous Notes * Telephone Encounter - Mela Berrios RN - 08/02/2024 12:43 PM EDT Tier 3 documented in this encounter Plan of Treatment Upcoming Encounters Date Type Department Care Team (Late st Contact Info) Description 08/29/2024 9:30 AM EDT Office Visit [facility] Physicians Plastic and Reconstructive Surgery [address] [facility] [address] [place] [address] Shereen Smallwood, PA-C [address] [facility], [address] [place] [address] 10/26/2024 8:30 AM EDT Telephone Visit [facility] Gynecology Oncology, A Department of [place] [address] [facility] [address] [place] [phone] Raymond Sepulveda MD [address] [facility], [address] [place], [place] [phone] documented as of this encounter Goals Goal Patient Goal Type Associated Problems Recent Progress Patient-Stated? Author return home General Yes Mariah Gonsalez, OC Note: Evaluation of progress towards goal: progressing, patient will return home at discharge/follow up [facility] Wound care clinic documented as of this encounter Visit Diagnoses Not on filedocumented in this encounter Additional Health Concerns Assessment Noted Time PHQ-9 Depression Total Score: 0 07/15/19 25 8:53 AM EDT documented as of this encounter Care Teams Pipeline Systems Operator Relationship Specialty Start Date End Date Amy Collier, ROTOGRAVURE PRESS OPERATOR-BLOOD BANK ATTENDANT [address] [facility] [place] [address] PCP - General 11/28/16 documented as of this encounter
--- OUTSIDE RECORDS SUMMARY | 2024-08-24 11:12 | XMS_ITS | Encounter Summary ---
Author Organization [facility] Address [id number] [address] [place] [address] Care Team Providers Care Supervisor Screen Printing Name Role Phone Amy Collier PURCHASING SPECIALIST-SLEEPER CUTTER Primary Care Provider + Encounter Details Date Type Department Care Team (Late st Contact Info) Description 06/03/2024 Orders Only [facility] Internal [facility] - Family Medicine [address] [place] [phone] Ref Prov, [place] [address] Social History Tobacco Use Types Packs/Day Years [...] often do you attend chur ch or nondenominational services? More than 4 times per year [...] Answer Date Recorded Total Score 2 03/30/2024 [facility] of Occupat ional Health - Occupational Stress [...] Recorded Do you need help finding a [facility] and/or a training program? [...] Description 08/29/2024 9:30 AM EDT Office Visit [facility] Plastic and Reconstructive Surgery [address] [place] [address] [address] [place] [address] Shereen Smallwood PA-C [address] [facility], [facility] [address] [place] [address] 10/26/2024 8:30 AM EDT Telephone Visit [facility] Gynecology Oncology, A Department of [address] [place] [phone] Raymond Sepulveda MD [address] [facility], [address] [place], [place] [phone] documented as of this encounter Goals Goal Patient Goal Type Associated Problems Recent Progress Patient-Stated? Author return home General Yes Mariah Gonsalez, RN Note: Evaluation of progress towards goal: progressing, patient will return home at discharge/follow up [facility] Wound care clinic documented as of this encounter Procedures Procedure Name Priority Date/Time Associated Diagnosis Comments BLOOD CULTURE Routine 06/03/2024 11:22 AM EDT BLOOD CULTURE Routine 05/22/2024 11:18 AM EDT BLOOD CULTURE Routine 05/22/2024 11:17 AM EDT BLOOD CULTURE Routine 05/22/2024 11:15 AM EDT documented in this encounter Results * Blood Culture (06/03/2024 11:22 AM EDT) Blood us Not In System Ref Prov MICROBIOLOGY - GENERAL OR DERABLES Final Result Performing Organization Address [facility] de Phone Number MANUALLY TRANSCRIBED RESULTS * Blood Culture (05/22/2024 11:18 AM EDT) Blood us Not In System Ref Prov MICROBIOLOGY - GENERAL OR DERABLES Final Result Performing Organization Address [facility] [address] [facility] de Phone Number MANUALLY TRANSCRIBED RESULTS * Blood Culture (05/22/2024 11:17 AM EDT) Blood us Not In System Ref Prov MICROBIOLOGY - GENERAL OR DERABLES Final Result Performing Organization Address [facility] [address] [facility] de Phone Number MANUALLY TRANSCRIBED RESULTS * Blood Culture (05/22/2024 11:15 AM EDT) Blood us Not In System Ref Prov MICROBIOLOGY - GENERAL OR DERABLES Final Result Performing Organization Address [facility] [address]/[facility] de Phone Number MANUALLY TRANSCRIBED RESULTS documented in this encounter Visit Diagnoses Not on filedocumented in this encounter Additional Health Concerns Assessment Noted Time PHQ-9 Depression Total Score: 2 03/30/19 25 3:58 PM EST documented as of this encounter Care Teams Supervisor Screen Printing Relationship Specialty Start Date End Date Amy Collier, PURCHASING SPECIALIST-SLEEPER CUTTER [address] [place] [address] PCP - General 11/28/16 documented as of this encounter
--- OUTSIDE RECORDS SUMMARY | 2024-08-24 11:12 | XMS_ITS | Encounter Summary ---
Author Organization [facility] Address [address] [place] [address] Care Team Providers Care Special Education Associate Name Role Phone Nilda Carolina RICHTER Unavailable [phone] Jessica Hope MD Unavailable [phone] Lynda Manuel CNP Primary Care Provider [phone] Shereen Smallwood PA-C Unavailable [phone] Radha Martinez RN Unavailable Source Comments In the event this information is protected by the Federal Confidentiality of Alcohol and Drug AbusePatient Records regulations: The Federal rules restrict any use of the information to criminally investigate or prosecute any alcohol or drug abuse patient.[facility] Encounter Details Date Type Department Care Team (Late st Contact Info) Description 08/10/2024 Results Follow-Up Hematology/Oncology [address] [place] [address] [place] [address] [place] [address] Social History Tobacco Use Types Packs/Day Years Used Date Smoking Tobacco: Never Passive Smoke Exposure: Never Smokeless Tobacco: Never Alcohol Use Standard Drinks/Week Comments Not Currently 0 (1 standard drink = 0.6 oz pur e alcohol) Occasional wine Area Deprivation Index Answer Date Milton rded National Score (1-100), lower number is lower ri sk 82 07/21/2024 State Score (1-10), lower number is lower risk 7 07/21/2024 Data from: https://www.neighborhoodatlas.medicine.[facility].edu/. Last address used for calculation [address] 07/21/2024 Comments Unknown Sex and Gender Information Value Date Recorded Sex Assigned at Not on file Legal Sex Female 3:51 PM EDT Gender Identity Not on file Sexual Orientation Not on file documented as of this encounter Plan of Treatment Not on file documented as of this encounter Visit Diagnoses Not on filedocumented in this encounter Care Teams Special Education Associate Relationship Specialty Start Date End Date Lynda Manuel CNP [address] [place] [address] PCP - General Family Medicine 06/14/24 Carolina Munguia APRN [address] [facility] [address] [facility] [place] [address] 12/04/23 Jessica Hope MD [address] [place] [address] Referring Hematology/Oncology 06/14/24 Shereen Smallwood PA-C [address] [facility] [address] [facility] [address] [facility] Referring Orthopedics 06/15/24 [place] [address] [place] [address] Specialty Manager Internet Hematology/Oncology 07/31/24 documented as of this encounter
--- OUTSIDE RECORDS SUMMARY | 2024-08-24 11:12 | XMS_ITS | Clinical Summary ---
Author Organization [facility] Address [address] [place] [address] Phone Care Team Providers Care Dyed Raw Stock Blower Feeder Name Role Phone Randy Lu Primary Care Provider Allergies Active Allergy Reactions Criticality Noted Date Comments Adhesive Rash Low 04/14/2023 Meperidine Swelling Medium 03/12/2023 Medications chlorthalidone (Hygroton) 50 mg tablet Take 1 tablet (50 mg) by mouth once daily. Active cyclobenzaprine (Flexeril) 10 mg tablet Take 1 tablet (10 mg) by mouth 3 times a day as needed for muscle spasms. Active traZODone (Desyrel) 50 mg tablet Take 1 tablet (50 mg) by mouth once daily at bedtime. Active spironolactone (Aldactone) 25 mg tabletIndications :Hypokalemia Take 1 tablet (25 mg) by mouth once daily. 90 tablet 3 03/26/2023 Active chlorthalidone (Hygroton) 25 mg tabletIndications :Essential (primary) hypertension TAKE ONE TABLET BY MOUTH DAILY 90 tablet 3 07/08/2023 Active lisinopril 20 mg tabletIndications :Essential (primary) hypertension TAKE ONE TABLET BY MOUTH DAILY 90 tablet 3 08/11/2023 Active furosemide (Lasix) 20 mg tabletIndications :Bilateral leg edema Take 1 tablet (20 mg) by mouth once daily. 90 tablet 3 08/12/2023 Active metoprolol succinate XL (Toprol-XL) 100 mg 24 hr tabletIndications :Essential (primary) hypertension TAKE ONE TABLET BY MOUTH DAILY 90 tablet 3 09/09/2023 Active Active Problems Problem Noted Date Diagnosed Date Essential (primary) hypertension 04/14/2023 Breast cancer 04/14/2023 Immunizations Immunization Administration Dates Next Due Influenza, Unspecified 12/01/2015 Influenza, injectable, quadrivalent 11/30,01/19/2017,01/07/2016,2014,01/05/2014 Influenza, seasonal, injectable 11/14/2019,12/13,12/29/2012 Novel [id number], preservative-free 01/17/2009 Tdap vaccine, age 7 year and older (BOOSTRIX, ADACEL) 07/07/2017 Family History Medical History Relation Name Comments No Known Problems Father No Known Problems Mother Relation Name Status Comments Father Mother Social History Tobacco Use Types Packs/Day Years Used Date Smoking Tobacco: Never Smokeless Tobacco: Never Tobacco Cessation:Counseling Given: Not Answered Alcohol Use Standard Drinks/Week Comments Yes 0 (1 standard drink = 0.6 oz pur e alcohol) social Comments Unknown Sex and Gender Information Value Date Recorded Sex Assigned at Not on file Legal Sex Female 9:53 AM EST Gender Identity Not on file Sexual Orientation Not on file Last Filed Vital Signs Vital Sign Reading Time Taken Comments Blood Pressure 104/70 04/14/2023 11:10 AM EST Pulse 66 04/14/2023 11:10 AM EST Temperature - - Respiratory Rate - - Oxygen Saturation - - Inhaled Oxygen Concentration - - Weight 100 kg (221 lb) 04/14/2023 11:10 AM EST Height 180.3 cm (5' 11 ) 04/14/2023 11:10 AM EST Body Mass Index 30.82 04/14/2023 11:10 AM EST Plan of Treatment Health Maintenance Due Date Last Done Comments CT Colonography 1970 Colonoscopy 1970 FIT 1970 HIV Screening 1970 Lipid Panel 1970 Sigmoidoscopy 1970 Skin Cancer Screening 1970 Diabetes Screening 1988 Hepatitis C Screening 1988 Hepatitis B Vaccines (1 of 3 - 19+ 3-dose series) 1989 Pneumococcal Vaccine (1 of 2 - PCV) 1989 HPV/Cotest 10/11/1991 MMR Vaccines (1 of 1 - Standard series) 02/14/2009 Zoster Vaccines (1 of 2) 2020 COVID-19 Vaccine ( season) 2023 12/06/2020, 11/15/2020 Yearly Adult Physical 06/01/2024 06/01/2023, 022 Colorectal Cancer Screening 06/06/2024 FIT-DNA (Cologuard) 06/06/2024 06/06/2021 Mammogram 10/15/2024 10/16/2023, 03/0 10/2023, 03/26/2023, Additional history exists Influenza Vaccine (Season Ended) 2024 11/20/2019, 11/14/2019, 12/13/2018, Additional history exists Cervical Cancer Screening 05/31/2026 Pap Smear 05/31/2026 06/01/2023 DTaP/Tdap/Td Vaccines (2 - Td or Tdap) 07/08/2027 07/07/2017 HIB Vaccines Aged Out No longer eligi ble based on patient's age to complete this topic HPV Vaccines (No Doses Required) Completed Hepatitis A Vaccines Aged Out No long er eligible based on patient's age to complete this topic IPV Vaccines Aged Out No longer eligi ble based on patient's age to complete this topic Meningococcal Vaccine Aged Out No dejan devante eligible based on patient's age to complete this topic Rotavirus Vaccines Aged Out No longer eligible based on patient's age to complete this topic Insurance [address] [place] [phone] [facility] Care Teams Dyed Raw Stock Blower Feeder Relationship Specialty Start Date End Date Radny Lu DO PCP - General 07/21/22
--- OUTSIDE RECORDS SUMMARY | 2024-08-24 11:12 | XMS_ITS | Encounter Summary ---
Author Organization [employer] Address [id number] [address] [place] [address] Care Team Providers Care Grants Assistant Name Role Phone Amy Collier EMERGENCY DEPARTMENT NURSE-LOSS PREVENTION LEAD Primary Care Provider + Reason for Referral * Diagnostic Imaging (Routine) - Pending Review Specialty Diagnoses / Procedures Referred By Contac t Referred To Contact Radiology Diagnoses Pain Procedures CT abdomen and pelvis with contrast [facility] [address] [place] [phone] Phone: tel: fax: Referral ID Status Reason Start Date Expiration Date V isits Requested Visits Authorized [id number] Pending Review 06/13/2024 06/13/2025 1 1 * Diagnostic Imaging (Routine) - Pending Review Specialty Diagnoses / Procedures Referred By Contac t Referred To Contact Radiology Diagnoses Pain Procedures CT chest with contrast [facility] [address] [place] [phone] Phone: tel: fax: Referral ID Status Reason Start Date Expiration Date V isits Requested Visits Authorized [id number] Pending Review 06/13/2024 06/13/2025 1 1 Encounter Details Date Type Department Care Team ([facility] st Contact Info) Description 06/13/2024 Orders Only [facility] [address] [place] [phone] Transcribe, Orders Support User Pain (Primary Dx) Social History Tobacco Use Types Packs/Day Years Used Date Smoking Tobacco: Never Passive Smoke Exposure: Past Smokeless Tobacco: Never Alcohol Use Standard Drinks/Week Comments Yes 0 (1 standard drink = 0.6 oz pur e alcohol) Socially [facility] Utilities Answer Date Recorded In the past 12 months has th e electric, gas, oil, or water company [...] do you attend [facility] or mandaen services? More than 4 times per year 02/27/2022 Do you belong to any clubs o r organizations such as baptism groups, unions, fraternal or athletic groups, or [...] Answer Date Recorded Total Score 2 03/30/2024 [facility] of Occupat ional Health - Occupational Stress [...] Recorded Do you need help finding a [facility] [employer] center and/or a training program? No 02/27/2022 [...] Reconstructive Surgery [address] [place] [address] Shereen Smallwood, PANicolasC [address] [place] [address] 10/26/2024 8:30 AM EDT Telephone Visit [facility] On[facility], A Department of [address] [place] [address] Raymond Sepulveda MD [address] [facility], [address] [facility] [place] [place] [address] documented as of this encounter Goals Goal Patient Goal Type Associated Problems Recent Progress Patient-Stated? Author return home General Yes Mariah Gonsalez, RN Note: Evaluation of progress towards goal: progressing, patient will return home at discharge/follow up [facility] documented as of this encounter Results * CT abdomen and pelvis with contrast (04/29/2024 9:40 AM EST) us Scanning Provider External IMG CT ORDERABLES Fin al Result * CT chest with contrast (04/29/2024 9:35 AM EST) us Scanning Provider External IMG CT ORDERABLES Fin al Result documented in this encounter Visit Diagnoses Diagnosis Pain- Primary Generalized pain documented in this encounter Additional Health Concerns Assessment Noted Time PHQ-9 Depression Total Score: 2 03/30/19 25 3:58 PM EST documented as of this encounter Care Teams Grants Assistant Relationship Specialty Start Date End Date Amy Collier, EMERGENCY DEPARTMENT NURSE-LOSS PREVENTION LEAD [address] [place] [address] PCP - General 11/28/16 documented as of this encounter
--- OUTSIDE RECORDS SUMMARY | 2024-08-24 11:12 | XMS_ITS | Encounter Summary ---
Author Organization [facility] Address [id number] [address] [place] [address] Care Team Providers Care Commercial Credit Analyst Name Role Phone Amy Collier RESTAURANT ATTENDANT-TRUSTEE OF ESTATE Primary Care Provider + Encounter Details Date Type Department Care Team (Late st Contact Info) Description 11/25/2023 Orders Only [facility] Plastic [facility]ive [facility] [address] [facility] [address] [place] [address] Marisela Davila, RESTAURANT [facility] [address], [address] [place] [address] Social History Tobacco Use Types Packs/Day Years Used Date Smoking Tobacco: Never Smokeless Tobacco: Never Alcohol Use Standard Drinks/Week Comments Yes 0 (1 standard drink = 0.6 oz pur e alcohol) Socially [facility] Utilities Answer Date Recorded In the past 12 months has [employer], gas, oil, or water [employer] threatened to shut off services in your home? No 11/27/2023 Social Connection and Isolat ion Panel [NHANES] [...] Answer Date Recorded Total Score 0 03/07/2022 [facility] of Occupat ional Health - Occupational [...] medical appointments or from getting medications? No 11/01 In the past 12 months, has l ack of transportation kept you from meetings, work, or from getting things needed for daily living? No 11/27/2023 Housing Instability Answer Date Recorde d Are you worried or concerned that in the next two months you may not have stable housing that you own, rent or stay in as a part of a household? No 11/27/2023 Childcare Answer Date Recorded Do problems getting child ca re make it difficult for you to work or study? No 02/27/2022 Employment Answer Date Recorded Do you need help finding a [facility] career center and/or a training program? No 02/27/2022 Hunger Screening Answer Date Recorded Within the past 12 months we worried whether our food would run out before we got money to buy more. Never True 11/27/2023 Within the past 12 months th e food we bought just didn't last and we didn't have money to get more. Never True 11/27/2023 Purpose - Life Answer Date Recorded I [...] AM EDT Office Visit [facility] Physicians Plastic and Reconstructive Surgery [address] [place] [address] [address] [place] [address] Shereen Smallwood PANicolasC [address] [facility], [facility] [address] [place] [phone] 10/26/2024 8:30 AM EDT Telephone Visit [facility] Gynecology Oncology, A Department of [address] [place] [address] [place] [address] [place] [address], [address] [place] [address] documented as of this encounter Visit Diagnoses Not on filedocumented in this encounter Additional Health Concerns Assessment Noted Time PHQ-9 Depression Total Score: 0 03/07/19 23 11:14 AM EST documented as of this encounter Care Teams Commercial Credit Analyst Relationship Specialty Start Date End Date Amy Collier, RESTAURANT ATTENDANT-TRUSTEE OF ESTATE [address] [place] [address] PCP - General 11/28/16 documented as of this encounter
--- OUTSIDE RECORDS SUMMARY | 2024-08-24 11:12 | XMS_ITS | Encounter Summary ---
Author Organization [facility] Address [address] [place] [address] Care Team Providers Care Dough Machine Operator Name Role Phone Randy Lu MD Primary Care Provider Encounter Details Date Type Department Care Team (Late Contact Info) Description 04/19/2024 Abstract [facility] [address] [place] [address] Evan Thompson DO [facility] Janeth Palacios, [facility] Social History Tobacco Use Types Packs/Day Years [...] AM EDT Office Visit [facility] [address] [place] [address] Evan Thompson DO [facility] [address] [place] [id number] documented as of this encounter Visit Diagnoses Not on filedocumented in this encounter Care Teams Dough Machine Operator Relationship Specialty Start Date End Date Randy Lu MD PCP - General Family Medicine 04/02/23 documented as of this encounter
--- OUTSIDE RECORDS SUMMARY | 2024-08-24 11:12 | XMS_ITS | Encounter Summary ---
Author Organization [employer] Address [facility]-[id number] [address] [place] [address] Care Team Providers Care Insurance Account Specialist Name Role Phone Amy Collier CHIEF RESOURCE OFFICER-PRODUCT SUPPORT SALES REPRESENTATIVE Primary Care Provider + Encounter Details Date Type Department Care Team (Late Contact Info) Description 11/27/2021 Orders Only [facility] Internal Medicine - Family Medicine [address] [place] [address] Nat Javed CMA Social History Tobacco Use Types Packs/Day [...] Reconstructive Surgery [address] [place] [address] Shereen Smallwood, PANicolasC [address], [address] [place] [address] 10/26/2024 8:30 AM EDT Telephone Visit [facility], A Department of [address] [place] [address] Raymond Sepulveda MD [address] [place] [address], [address] [place] [address] documented as of this encounter Visit Diagnoses Not on filedocumented in this encounter Additional Health Concerns Infection Onset Date Last Indicated Resolved Time Influenza 03/07/2022 03/07/2022 03/14/2022 11:1 2 PM EST documented as of this encounter Care Teams Insurance Account Specialist Relationship Specialty Start Date End Date Amy Collier, CHIEF RESOURCE OFFICER-PRODUCT SUPPORT SALES REPRESENTATIVE [address] [place] [address] PCP - General 11/28/16 documented as of this encounter
--- OUTSIDE RECORDS SUMMARY | 2024-08-24 11:12 | XMS_ITS | Encounter Summary ---
Author Organization [facility] Address [address] [place] [address] Care Team Providers Care Biodiesel Process Control Technician Name Role Phone Randy Lu MD Primary Care Provider Encounter Details Date Type Department Care Team (Late Contact Info) Description 04/07/2024 Abstract [facility] OB [address] [place] [address] Evan Thompson DO [facility] [address] [place] [id number] Social History Tobacco Use Types Packs/Day Years [...] 06/12/2025 10:00 AM EDT Office Visit [facility] [address] [place] [address] Evan Thompson DO [facility] [address] [place] [phone] documented as of this encounter Visit Diagnoses Not on filedocumented in this encounter Care Teams Biodiesel Process Control Technician Relationship Specialty Start Date End Date Randy Lu MD PCP - General Family Medicine 04/02/23 documented as of this encounter
--- OUTSIDE RECORDS SUMMARY | 2024-08-24 11:12 | XMS_ITS | Encounter Summary ---
Author Organization [facility] Address [address] [place] [address] Care Team Providers Care Tuber Machine Operator Name Role Phone Randy Lu MD Primary Care Provider Encounter Details Date Type Department Care Team (Late Contact Info) Description 04/07/2024 Abstract [facility] [address] [place] [address] Evan Thompson DO [facility] [address] [place] [id number] Social History Tobacco Use Types Packs/Day Years [...] AM EDT Office Visit [facility] [address] [place] [address] Evan Thompson DO [facility] [address] [place] [id number] documented as of this encounter Visit Diagnoses Not on filedocumented in this encounter Care Teams Tuber Machine Operator Relationship Specialty Start Date End Date Randy Lu MD PCP - General Family Medicine 04/02/23 documented as of this encounter
--- OUTSIDE RECORDS SUMMARY | 2024-08-24 11:12 | XMS_ITS | Encounter Summary ---
Author Organization [facility] Address [facility] [id number] [address] [place] [address] Care Team Providers Care Vibration Analyst Name Role Phone Amy Collier STAMP MACHINE SERVICER-STONER HAND Primary Care Provider + Encounter Details Date Type Department Care Team (Late st Contact Info) Description 03/07/2022 Orders Only [facility] Internal Medicine - Family Medicine [address] [place] [phone] Amy Collier APRN-STONER HAND [address] [place] [address] Social History Tobacco Use Types Packs/Day Years [...] often do you attend chur ch or rastafari services? More than 4 times per year [...] Answer Date Recorded Total Score 0 03/07/2022 [facility] [place] of Occupat ional Health - Occupational Stress [...] have Coronavirus / COVID-19? No / Unsure 03/07/2022 11:05 AM EST documented as of this encounter Plan of Treatment Upcoming Encounters Date Type Department Care Team (Late st Contact Info) Description 08/29/2024 9:30 AM EDT Office Visit [facility]icians Plastic and Reconstructive Surgery [address] [place] [address] [address] [place] [phone] Shereen Smallwood PA-C [address] [place] [address], [facility] [address] [place] [address] 10/26/2024 8:30 AM EDT Telephone Visit [facility] Gynecology Oncology, A Department of [address] [place] [address] [place] [address] [place] [address], [address] [place], [place] [id number] documented as of this encounter Procedures Procedure Name Priority Date/Time Associated Diagnosis Comments HOME NEBULIZER Routine 03/07/2022 documented in this encounter Results * Home Nebulizer (03/07/2022) us Amy Collier STAMP MACHINE SERVICER-STONER HAND DME ORDERABLES Final Re sult MANUALLY TRANSCRIBED RESULTS documented in this encounter Visit Diagnoses Not on filedocumented in this encounter Additional Health Concerns Infection Onset Date Last Indicated Resolved Time Influenza 03/07/2022 03/07/2022 03/14/2022 11:1 2 PM EST Assessment Noted Time PHQ-9 Depression Total Score: 0 03/07/19 11:14 AM EST documented as of this encounter Care Teams Vibration Analyst Relationship Specialty Start Date End Date Amy Collier, STAMP MACHINE SERVICER-STONER HAND [address] [place] [address] PCP - General 11/28/16 documented as of this encounter
--- OUTSIDE RECORDS SUMMARY | 2024-08-24 11:12 | XMS_ITS | Encounter Summary ---
Author Organization [employer] Address [facility] [id number] [address] [place] [address] Care Team Providers Care Band Cutting Machine Operator Name Role Phone Amy Collier HUMAN PERFORMANCE TECHNOLOGIST-OVAL OR CIRCULAR GLASS CUTTER Primary Care Provider + Encounter Details Date Type Department Care Team (Late st Contact Info) Description 05/25/2024 [facility] [address] [facility] [address] [place] [address] Shereen Mortensen PA-C [address], [facility] [address] [place] [address] Social History Tobacco Use Types Packs/Day Years Used Date Smoking Tobacco: Never Passive Smoke Exposure: Past Smokeless Tobacco: Never Alcohol Use Standard Drinks/Week Comments Yes 0 (1 standard drink = 0.6 oz pur e alcohol) Socially [facility] Utilities Answer Date Recorded In the past 12 months has [employer], gas, oil, or water [employer] threatened to shut off services in your [...] Answer Date Recorded Total Score 2 03/30/2024 [facility]ational Stress Questionnaire Answer Date [...] Recorded Do you need help finding a [facility] career center and/or a training program? [...] encounter Miscellaneous Notes * Telephone Encounter - Shereen Mortensen PA-C - 05/25/2024 9:51 PM EDT Called patient to discuss wound management plans. Patient informed me that she was currently admitted to [facility] with fever and chills. Per patient, there were concerns as to whether this was involving her PICC line versus IV abx. She informed me that wound care placed a wound vac on her wound. She notified them that we had an applications for a wound vac in place. I informed her that I was reaching out to her today to inform her that following her visit, Dr. Rosado and I further discussed the option of placing a wound vac. Because the wound continued to communicate with the previous port site through an area of tunneling, we agreed that it may be best to allowthe area to close in via wet to dry to prevent that region from sealing up prematurely. I do have th e paperwork completed however, after discussion with Dr. Rosado, did not send it in. Now that she hasbeen placed into a vac however, we can continue to proceed with vac application. I instructed her to provide my number to the high school social studies teacher and I can fax the current completed [facility] paperwork to them to submit so that the vac can be delivered to the hospital prior to her discharge. We will plan to schedule her for follow up in the office pending timing of her discharge from [facility]. SHEREEN MORTENSEN PA-C documented in this encounter Plan of Treatment Upcoming Encounters Date Type Department Care Team (Late st Contact Info) Description 08/29/2024 9:30 AM EDT Office Visit [facility] Plastic and Reconstructive Surgery [address] [facility] [address] [place] [phone] Shereen Mortensen PA-C [address] [facility], [address] [place] [address] 10/26/2024 8:30 AM EDT [facility], A Department of [facility] [address] [facility] [address] [place] [phone] Raymond Sepulveda MD [address] [facility], [address] [place] [address] documented as of this encounter Goals Goal Patient Goal Type Associated Problems Recent Progress Patient-Stated? Author return home General Yes Mariah Gonsalez, RN Note: Evaluation of progress towards goal: progressing, patient will return home at discharge/follow up [facility] documented as of this encounter Visit Diagnoses Not on filedocumented in this encounter Additional Health Concerns Assessment Noted Time PHQ-9 Depression Total Score: 2 03/30/19 25 3:58 PM EST documented as of this encounter Care Teams Band Cutting Machine Operator Relationship Specialty Start Date End Date Amy Collier APRN-OVAL OR CIRCULAR GLASS CUTTER [address] [place] [address] PCP - General 11/28/16 documented as of this encounter
--- OUTSIDE RECORDS SUMMARY | 2024-08-24 11:12 | XMS_ITS | Encounter Summary ---
Author Organization [facility] Address [facility] [id number] [address] [place] [address] Care Team Providers Care Engineering Supervisor Name Role Phone Amy Collier GATHERING MACHINE FEEDER-LENS GRINDER ROUGH Primary Care Provider + Encounter Details Date Type Department Care Team (Late st Contact Info) Description 05/24/2024 Orders Only [facility] Internal Medicine - Family Medicine [address] [place] [phone] Ref Prov, [place] [address] Social History Tobacco Use Types Packs/Day Years [...] often do you attend chur ch or scientologist services? More than 4 times per year 02/27/2022 Do you belong to any clubs o r organizations such as gnosticism groups, unions, fraternal or athletic groups, or [...] Answer Date Recorded Total Score 2 03/30/2024 [facility] of Occupat ional Health - Occupational [...] Recorded Do you need help finding a [facility] career center and/or a training [...] Description 08/29/2024 9:30 AM EDT Office Visit [facility] Plastic and Reconstructive Surgery [address] [place] [address] [address] [place] [address] Shereen Smallwood PA-C [address] [facility] [address] [place] [address] 10/26/2024 8:30 AM EDT Telephone Visit [facility] Gynecology Oncology, A Department of [address] [place] [address] Raymond Sepulveda MD [address] [facility], [address] [place], [place] [phone] documented as of this encounter Goals Goal Patient Goal Type Associated Problems Recent Progress Patient-Stated? Author return home General Yes Mariah Gonsalez, RN Note: Evaluation of progress towards goal: progressing, patient will return home at discharge/follow up [facility] Wound care clinic documented as of this encounter Procedures Procedure Name Priority Date/Time Associated Diagnosis Comments BLOOD CULTURE Routine 05/22/2024 10:14 AM EDT documented in this encounter Results * Blood Culture (05/22/2024 10:14 AM EDT) Blood us Not In System Ref Prov MICROBIOLOGY - GENERAL OR DERABLES Final Result MANUALLY TRANSCRIBED RESULTS documented in this encounter Visit Diagnoses Not on filedocumented in this encounter Additional Health Concerns Assessment Noted Time PHQ-9 Depression Total Score: 2 03/30/19 25 3:58 PM EST documented as of this encounter Care Teams Engineering Supervisor Relationship Specialty Start Date End Date Amy Collier, GATHERING MACHINE FEEDER-LENS GRINDER ROUGH [address] [place] [address] PCP - General 11/28/16 documented as of this encounter
--- OUTSIDE RECORDS SUMMARY | 2024-08-24 11:12 | XMS_ITS | Encounter Summary ---
Author Organization [facility] Address [address] [place] [address] Care Team Providers Care Wharf Worker Name Role Phone Randy Lu MD Primary Care Provider [phone] Encounter Details Date Type Department Care Team (Late st Contact Info) Description 06/07/2024 Orders Only [facility] OB [address] [place] [address] Nahomy Watson LPN [address] [employer] [facility] Padmaja BENITEZ [facility]11 Social History Tobacco Use Types Packs/Day Years [...] 06/12/2025 10:00 AM EDT Office Visit [facility] OB [address] [place] [address] Evan Thompson [address] [facility] [address] Padmaja Benitez, [facility]11 documented as of this encounter Procedures Procedure Name Priority Date/Time Associated Diagnosis Comments PAP SMEAR Routine 06/01/2024 12:00 AM EDT documented in this encounter Results * Pap Smear (06/01/2024 12:00 AM EDT) Swab Cervical swab / Unknown Jay [facility] LAB CYTOLOGY ORDERABLES Final Result EXTERNAL LAB documented in this encounter Visit Diagnoses Not on filedocumented in this encounter Care Teams Wharf Worker Relationship Specialty Start Date End Date Randy Lu MD PCP - General Family Medicine 04/02/23 documented as of this encounter
--- OUTSIDE RECORDS SUMMARY | 2024-08-24 11:12 | XMS_ITS | Encounter Summary ---
Author Organization [facility] Address [facility] [id number] [address] [place] [address] Care Team Providers Care Equipment Processor Name Role Phone Amy Collier SPECIMEN TECHNICIAN-DESIGN DRAFTER CHIEF Primary Care Provider + Encounter Details Date Type Department Care Team (Late st Contact Info) Description 06/13/2024 Orders Only [facility] Internal Medicine - Family Medicine [address] [place] [phone] Ref Prov, [place] [address] Social History Tobacco Use Types Packs/Day Years [...] Answer Date Recorded Total Score 2 03/30/2024 [facility] of Occupat ional Health - Occupational Stress [...] Recorded Do you need help finding a [facility] career center and/or a training program? [...] Description 08/29/2024 9:30 AM EDT Office Visit [facility] Physicians Plastic and Reconstructive Surgery [address] [place] [address] [address] [place] [address] Shereen Smallwood PA-C [address] [facility] [address] [place] [address] 10/26/2024 8:30 AM EDT Telephone Visit [facility] Gynecology Oncology, A Department of [address] [place] [address] Raymond Sepulveda MD 5308 [facility], [address] [place], [place] [phone] documented as of this encounter Goals Goal Patient Goal Type Associated Problems Recent Progress Patient-Stated? Author return home General Yes Mariah Gonsalez, RN Note: Evaluation of progress towards goal: progressing, patient will return home at discharge/follow up [facility] Wound care clinic documented as of this encounter Procedures Procedure Name Priority Date/Time Associated Diagnosis Comments BLOOD CULTURE Routine 05/22/2024 8:14 AM EDT documented in this encounter Results * Blood Culture (05/22/2024 8:14 AM EDT) Blood us Not In System Ref Prov MICROBIOLOGY - GENERAL OR DERABLES Final Result MANUALLY TRANSCRIBED RESULTS documented in this encounter Visit Diagnoses Not on filedocumented in this encounter Additional Health Concerns Assessment Noted Time PHQ-9 Depression Total Score: 2 03/30/19 25 3:58 PM EST documented as of this encounter Care Teams Equipment Processor Relationship Specialty Start Date End Date Amy Collier, SPECIMEN TECHNICIAN-DESIGN DRAFTER CHIEF [address] [place] [address] PCP - General 11/28/16 documented as of this encounter
--- OUTSIDE RECORDS SUMMARY | 2024-08-24 11:12 | XMS_ITS | Encounter Summary ---
Author Organization [facility] Address [facility] [id number] [address] [place] [address] Care Team Providers Care Mutual Fund Manager Name Role Phone Amy Collier SUMMER CLERK-GENERAL INTERNIST AND PHYSICIAN LEADER Primary Care Provider + Encounter Details Date Type Department Care Team (Late st Contact Info) Description 05/27/2024 Orders Only [facility] Internal Medicine - Family Medicine [address] [place] [phone] Ref Prov, [place] [address] Social History Tobacco Use Types Packs/Day Years [...] any clubs o r organizations such as jewish groups, unions, fraternal or athletic groups, or [...] Answer Date Recorded Total Score 2 03/30/2024 [facility] of Occupat ional Health - Occupational [...] Recorded Do you need help finding a [facility] career center and/or a training [...] 9:30 AM EDT Office Visit [facility] Plastic and Reconstructive Surgery [address] [place] [address] [address] [place] [address] Shereen Smallwood PA-C [address] [facility] [address] [place] [address] 10/26/2024 8:30 AM EDT Telephone Visit [facility] Gynecology Oncology, A Department of [address] [place] [address] Raymond Sepulveda MD [address] [facility], [address] [place], [place] [address] documented as of this encounter Goals Goal Patient Goal Type Associated Problems Recent Progress Patient-Stated? Author return home General Yes Mariah Gonsalez, RN Note: Evaluation of progress towards goal: progressing, patient will return home at discharge/follow up [facility] Wound care clinic documented as of this encounter Procedures Procedure Name Priority Date/Time Associated Diagnosis Comments BLOOD CULTURE Routine 05/22/2024 7:34 AM EDT documented in this encounter Results * Blood Culture (05/22/2024 7:34 AM EDT) Blood us Not In System Ref Prov MICROBIOLOGY - GENERAL OR DERABLES Final Result MANUALLY TRANSCRIBED RESULTS documented in this encounter Visit Diagnoses Not on filedocumented in this encounter Additional Health Concerns Assessment Noted Time PHQ-9 Depression Total Score: 2 03/30/19 25 3:58 PM EST documented as of this encounter Care Teams Mutual Fund Manager Relationship Specialty Start Date End Date Amy Collier, SUMMER CLERK-GENERAL INTERNIST AND PHYSICIAN LEADER [address] [place] [address] PCP - General 11/28/16 documented as of this encounter
--- OUTSIDE RECORDS SUMMARY | 2024-08-24 11:12 | XMS_ITS | Encounter Summary ---
Author Organization [employer] Address [facility] [place][id number] [address] [place] [address] Care Team Providers Care Administrative Office Clerk Name Role Phone Amy Collier DISTANCE LEARNING TECHNICIAN-BOOM TRUCK DRIVER Primary Care Provider + Encounter Details Date Type Department Care Team (Late st Contact Info) Description 12/15/2023 Telephone [facility] Infectious Disease [address] [facility] [address] [place] [address] Crista Mauricio CMA Social History Tobacco Use Types Packs/Day Years Used Date Smoking Tobacco: Never Smokeless Tobacco: Never Alcohol Use Standard Drinks/Week Comments Yes 0 (1 standard drink = 0.6 oz pur e alcohol) Socially [email or web address] Utilities Answer Date Recorded In the past 12 months has [employer], gas, oil, or water company threatened [...] often do you attend chur ch or druze services? More than 4 times per year [...] Answer Date Recorded Total Score 0 03/07/2022 [facility] [place] of Occupat ional Health - Occupational Stress [...] encounter Miscellaneous Notes * Telephone Encounter - Crista Mauricio CMA - 12/15/2023 8:57 AM EDT ----- Message from AMEENA Vallejo sent at 12/14/2023 1:55 PM EDT ----- Regarding: prior auth HI. Can someone work on this prior auth for me? I placed it once and got denied. They need progressnotes attached as well. I am trying to get Zyvox 600 mg daily from 12/17/2023-12/29. This is to treat a mycobacterium skin infection. She has multiple allergies and unable to tolerate other medications used for this 3 drug treatment regimen. Let me know if there is anything else I need to do. Thanks! * Telephone Encounter - Nabila Mora CMA - 12/15/2023 8:57 AM EDT NEW PA SUBMITTED: MARTINEZ [id number] [facility] Member Services is processing your PA request and will respond shortly with next steps. You may close this dialog, return to your dashboard, and perform other tasks. To check for an update later, open this request again from your dashboard. If you need assistance, please chat with [employer] or call us at . * Telephone Encounter - AMEENA Vallejo - 12/15/2023 8:57 AM EDT Thank you Nabila. * Telephone Encounter - Nabila Mora CMA - 12/15/2023 8:57 AM EDT Approved on December 14 by [employer] 2017 Your PA request for [id number] was approved for 28 days. The PA# assigned is [id number]. * Telephone Encounter - AMEENA Vallejo - 12/15/2023 8:57 AM EDT Great news! Thank you. documented in this encounter Plan of Treatment Upcoming Encounters Date Type Department Care Team (Late st Contact Info) Description 08/29/2024 9:30 AM EDT Office Visit [facility] Physicians Plastic and Reconstructive Surgery [address] [place] [address] Shereen Smallwood, PANicolasC [address], [address] [place] [address] 10/26/2024 8:30 AM EDT [facility], A Department of [facility] [address] [place] [address] Raymond Sepulveda MD 5308 [facility], [address] [place] [address] documented as of this encounter Visit Diagnoses Not on filedocumented in this encounter Additional Health Concerns Assessment Noted Time PHQ-9 Depression Total Score: 0 03/07/19 23 11:14 AM EST documented as of this encounter Care Teams Administrative Office Clerk Relationship Specialty Start Date End Date Amy Collier APRN-CNP [place] [address] PCP - General 11/28/16 documented as of this encounter
--- OUTSIDE RECORDS SUMMARY | 2024-08-24 11:12 | XMS_ITS | Encounter Summary ---
Author Organization [facility] Address [facility] [id number] [address] [place] [address] Care Team Providers Care Button Breaker Operator Name Role Phone Amy Collier LOCKSTITCH ZIPPER SETTER-INSTRUCTOR APPAREL MANUFACTURE Primary Care Provider + Reason for Visit * Reason Comments Med Refill Encounter Details Date Type Department Care Team (Late st Contact Info) Description 04/28/2022 Refill [facility] Physicians Internal Medicine - Family Medicine [address] [place] [address] Amy [facility]lier [facility] [address] [place] [address] Social History Tobacco Use Types Packs/Day Years [...] often do you attend chur ch or voodoo services? More than 4 times per year 02/27/2022 Do you belong to any clubs o r organizations such as episcopalian groups, unions, fraternal or athletic groups, or [...] Answer Date Recorded Total Score 0 03/07/2022 [facility] [place] of Occupat ional Health - Occupational Stress [...] encounter Miscellaneous Notes * Telephone Encounter - AMEENA Garcia - 04/28/2022 8:54 AM EST I see a different dose of this in her chart. Is she on 25 BID or 12.5 BID? * Telephone Encounter - Nat Javed CMA - 04/28/2022 8:54 AM EST Patient said she was on the 25mg and it was changed to the 12.5 but her blood pressures have been running in the 140's over 90's. She wonders if she should go back up to the 25mg. * Telephone Encounter - AMEENA Garcia - 04/28/2022 8:54 AM EST Yes, I can put her back on the 25mg BID. documented in this encounter Plan of Treatment Upcoming Encounters Date Type Department Care Team (Late st Contact Info) Description 08/29/2024 9:30 AM EDT Office Visit [facility] Physicians Plastic and Reconstructive Surgery [address] [facility] [address] [place] [address] Shereen Smallwood PA-C [address], [address] [place] [address] 10/26/2024 8:30 AM EDT Telephone Visit [facility] Gynecology Oncology, A Department of [address] [place] [address] Raymond Sepulveda MD 5308 [facility], [address] [place] [address] documented as of this encounter Visit Diagnoses Not on filedocumented in this encounter Additional Health Concerns Assessment Noted Time PHQ-9 Depression Total Score: 0 03/07/19 23 11:14 AM EST documented as of this encounter Care Teams Button Breaker Operator Relationship Specialty Start Date End Date Amy Collier, LOCKSTITCH ZIPPER SETTER-INSTRUCTOR APPAREL MANUFACTURE [address] [place] [address] PCP - General 11/28/16 documented as of this encounter
--- OUTSIDE RECORDS SUMMARY | 2024-08-24 11:12 | XMS_ITS | Encounter Summary ---
Author Organization [employer] Sys tem Address [facility]-[id number] [address] [place] [address] Care Team Providers Care Photo Checker Name Role Phone Amy Collier DIRECTOR SEARCH-WEATHERCASTER Primary Care Provider + Reason for Referral * Misc (Routine) - Pending Review Specialty Diagnoses / Procedures Referred By Contac t Referred To Contact Diagnoses Malignant neoplasm of lower-inner quadrant of right breast of female, estrogen receptor positive (CMS-HCC) Procedures Follow anesthesia guideines Christy He MD [address] [place] [phone] Phone: tel: fax: Referral ID Status Reason Start Date Expiration Date V isits Requested Visits Authorized [id number] Pending Review 10/02/2023 10/01/2024 1 1 Encounter Details Date Type Department Care Team (Late st Contact Info) Description 10/02/2023 Orders Only [facility] Surgical Oncology [address] [place] [phone] Christy He MD [address] [place] [phone] Malignant neoplasm of lower-inner quadrant of right breast of female, estrogen receptor positive (CMS-HCC) (Primary Dx) Social History Tobacco Use Types [...] any clubs o r organizations such as congregation groups, unions, fraternal [...] Answer Date Recorded Total Score 0 03/07/2022 [facility] of Occupat ional Health - Occupational [...] Recorded Do you need help finding a [facility] career center and/or a training program? No 02/27/2022 Hunger Screening Answer Date Recorded Within the past 12 months we worried whether our food would run out before we got money to buy more. Never True 08/20/2023 Within the past 12 months th e food we bought just didn't last and we didn't have money to get more. Never True 08/20/2023 Purpose - Life Answer Date Recorded I [...] 9:30 AM EDT Office Visit [facility] Physicians Plastic and Reconstructive Surgery [facility] [address] [place] [address] Shereen Smallwood, PANicolasC [facility] [address] [place] [address] 10/26/2024 8:30 AM EDT Telephone Visit [facility] Gynecology Oncology, A Department of [place] [address] [address] [facility] [address] [place] [address] Raymond Sepulveda MD [address] [facility], [address] [place] [address] Scheduled Orders Name Type Priority Associated Diagnoses Orde r Schedule Mammography specimen films right Imaging Routine Malignant neoplasm of lower-inner quadrant of right breast of female, estrogen receptor positive ([facility]) 1 Occurrences starting 10/02/2023 until 10/01/2024 documented as of this encounter Results * Ultrasound guided localization breast initial right (10/16/2023 2:08 PM EDT) Anatomical Region Laterality Modality Breast Right Ultrasound 10/16/2023 2:27 PM EDT Narrative 10/16/2023 2:32 PM EDT YASMIN FLANNERY 1970 [id number], [id number] EXAM: MAMM POST BX DIAG UNI RT, [...] Althea Miller MD on 10/16/2023 2:32 PM 2001 Procedure Note Althea Miller MD - 10/16/2023 YASMIN FLANNERY 1970 [id number], [id number] EXAM: MAMM POST BX DIAG UNI RT, US LOC BRST US GUID INIT RT, 42:17 PM CLINICAL INDICATIONS: Right breast malignancy, axillary Magseed placementprior to surgical excision COMPARISON: Right axillary biopsy 05/08/2023 PERFORMING PHYSICIAN: Althea Miller MD PROCEDURE: The risks, benefits, and alternatives of the procedure wereexplained in detail to the patient and both verbal and written informedconsent were obtained. A timeout was performed verifying the correctpatient, site and procedure. The patient was placed in a supine position on the US table. Preliminarysonographic evaluation confirmed the presence of the previously placedbiopsy clip within the abnormal lymph node. The skin was prepped and draped in usual sterile fashion. Local anesthesiawas obtained using 4 mL 1% lidocaine solution. Under ultrasound guidance,a magnetic seed was deployed adjacent to the hydromark biopsy clip. The patient tolerated the procedure well. There were no immediatecomplications. Post procedure mammogram: A 2D LM mammogram of the right breast was obtained for evaluation ofMagseed placement. Images interpreted on a dedicated mammographyworkstation. The Magseed is located immediately adjacent to the biopsy clip. IMPRESSION: 1. Technically successful ultrasound-guided Magseed placement prior tosurgical excision. 2. Post-procedural mammogram for Magseed placement. BIRADS:Post Magseed Finalized by Althea Miller MD on 10/16/2023 2:32 PM 2000 Christy He MD G US ORDERABLES Final Resul t documented in this encounter Visit Diagnoses Diagnosis Malignant neoplasm of lower-inner quadrant of right breast of female, estrogen receptor positive (CMS-HCC)- Primary Malignant neoplasm of lower-inner quadrant of right breast of female, estrogen receptor positive (CMS-HCC) documented in this encounter Additional Health Concerns Assessment Noted Time PHQ-9 Depression Total Score: 0 03/07/19 23 11:14 AM EST documented as of this encounter Care Teams Photo Checker Relationship Specialty Start Date End Date Amy Collier, DIRECTOR SEARCH-WEATHERCASTER [address] [place] [address] PCP - General 11/28/16 documented as of this encounter
--- OUTSIDE RECORDS SUMMARY | 2024-08-24 11:12 | XMS_ITS | Encounter Summary ---
Author Organization [facility] Address [facility][id number] [address] [place] [address] Care Team Providers Care Lawn And Garden Technician Name Role Phone Amy Collier PROJECT MANAGER INDUSTRIAL-SURG TECH Primary Care Provider + Encounter Details Date Type Department Care Team (Late st Contact Info) Description 09/14/2023 Orders Only [facility] Internal Medicine - Family Medicine [address] [place] [phone] Ref Prov, [place] [address] Social History Tobacco Use Types Packs/Day Years [...] How often do you attend chur or mu-ism services? More than 4 times per year 02/27/2022 Do you belong to any clubs o r organizations such as presybeterian groups, unions, fraternal or athletic groups, or [...] Answer Date Recorded Total Score 0 03/07/2022 [facility] of Occupat ional Health - Occupational Stress [...] Recorded Do you need help finding a [facility] career center and/or a training program? No [...] Description 08/29/2024 9:30 AM EDT Office Visit [facility] Physicians Plastic and Reconstructive Surgery [address] [facility] [address] [place] [phone] Shereen Smallwood, PANicolasC [address] [facility], [address] [place] [phone] 10/26/2024 8:30 AM EDT Telephone Visit [facility] Gynecology Oncology, A Department of [facility] [address] [facility] [address] [place] [address] [place] [address] [place] [address], [address] [place], [place] [phone] documented as of this encounter Procedures Procedure Name Priority Date/Time Associated Diagnosis Comments ECHO DOPPLER Routine 09/11/2023 2:17 PM EDT documented in this encounter Results * Echo Doppler (09/11/2023 2:17 PM EDT) Anatomical Region Laterality Modality Chest N/A Ultrasound us Not In System Ref Prov CV ECHO ORDERABLES Final Result documented in this encounter Visit Diagnoses Not on filedocumented in this encounter Additional Health Concerns Assessment Noted Time PHQ-9 Depression Total Score: 0 03/07/19 23 11:14 AM EST documented as of this encounter Care Teams Lawn And Garden Technician Relationship Specialty Start Date End Date Amy Collier, PROJECT MANAGER INDUSTRIAL-SURG TECH [address] [place] [address] PCP - General 11/28/16 documented as of this encounter
--- OUTSIDE RECORDS SUMMARY | 2024-08-24 11:12 | XMS_ITS | Encounter Summary ---
Author Organization [facility] Address [facility] [id number] [address] [place] [address] Care Team Providers Care Principal Web Developer Name Role Phone Amy Collier SEO STRATEGIST-WATERWORKS SUPERVISOR Primary Care Provider + Encounter Details Date Type Department Care Team (Late st Contact Info) Description 12/25/2023 Orders Only [facility] Infectious Disease [address] [facility] [address] [place] [address] External, Scanning Provider Social History Tobacco Use Types Packs/Day Years Used Date Smoking Tobacco: Never Smokeless Tobacco: Never Alcohol Use Standard Drinks/Week Comments Yes 0 (1 standard drink = 0.6 oz pur e alcohol) Socially [facility] Utilities Answer Date Recorded In the past 12 months has [employer], gas, oil, or water company threatened [...] often do you attend chur ch or tenriism services? More than 4 times per year [...] Answer Date Recorded Total Score 0 03/07/2022 [facility] of Occupat ional Health - Occupational Stress [...] Description 08/29/2024 9:30 AM EDT Office Visit [facility] Physicians Plastic and Reconstructive Surgery [address] [place] [address] [address] [place] [address] Shereen Smallwood PA-C [address] [facility], [facility] [address] [place] [phone] 10/26/2024 8:30 AM EDT Telephone Visit [facility] Gynecology Oncology, A Department of [address] [place] [phone] [place] [address] [place] [address], [address] [place], [place] [phone] documented as of this encounter Procedures Procedure Name Priority Date/Time Associated Diagnosis Comments PLATELET COUNT Routine 12/24/2023 WBC Routine 12/24/2023 CREATININE, SERUM Routine 12/24/2023 documented in this encounter Results * Platelet count (12/24/2023) External Platelet Count 163 150 - 450 MANUALLY TRANSCRIBED RESULTS Blood 12/24/2023 us Scanning Provider External LAB BLOOD ORDERABLES Final Result Performing Organization Address [facility] de Phone Number MANUALLY TRANSCRIBED RESULTS * WBC (12/24/2023) External Wbc Count 4.3 4.0 - 11.0 MANUALLY TRANSCRIBED RESULTS Blood 12/24/2023 us Scanning Provider External LAB BLOOD ORDERABLES Final Result Performing Organization Address [facility] de Phone Number MANUALLY TRANSCRIBED RESULTS * (ABNORMAL) Creatinine includes GFR, serum (12/24/2023) External Creatinine 1.20(A) 0.55 - 1.02 MANUALLY TRANSCRIBED RESULTS Blood 12/24/2023 us Scanning Provider External LAB BLOOD ORDERABLES Final Result Performing Organization Address [facility] de Phone Number MANUALLY TRANSCRIBED RESULTS documented in this encounter Visit Diagnoses Not on filedocumented in this encounter Additional Health Concerns Assessment Noted Time PHQ-9 Depression Total Score: 0 03/07/19 23 11:14 AM EST documented as of this encounter Care Teams Principal Web Developer Relationship Specialty Start Date End Date Amy Collier APRN-WATERWORKS SUPERVISOR [address] [place] [address] PCP - General 11/28/16 documented as of this encounter
--- NOTE | 2024-08-24 11:13 | ECG_ITS ---
[facility] Test Date: 2024-08-24 Pat Name: IKE JONES Department: Room: - Gender: Female Offc Spec: : 1970 Requested By: [id number] Order Number: [id number] Reading MD: VIVIAN BAZAN M.D. Measurements Intervals [place] Rate: 64 P: 68 IL: 187 QRS: 57 QRSD: 90 T: 46 QT: 384 QTc: 399 Interpretive Statements SINUS RHYTHM LOW QRS VOLTAGE IN PRECORDIAL LEADS [QRS DEFLECTION < 1.0 mV IN CHEST LEADS] NONSPECIFIC T-WAVE ABNORMALITY Compared to ECG 04/29/2024 10:00:18 Low QRS voltage now present Sinus arrhythmia no longer present T-wave abnormality still present Electronically Signed On 08-24-2024 20:00:25 EDT by VIVIAN BAZAN M.D.
--- OUTSIDE RECORDS SUMMARY | 2024-08-24 11:13 | XMS_ITS | Encounter Summary ---
Author Organization [facility] Address [facility] [place] [place][id number] [address] [place] [address] Care Team Providers Care Agent Broker Name Role Phone Amy Collier OENOLOGIST-PELT DROPPER Primary Care Provider + Encounter Details Date Type Department Care Team (Late st Contact Info) Description 08/31/2023 Orders Only [facility] Internal Medicine - Family Medicine [address] [place] [phone] Kodi Monteiro CMA Malignant neoplasm of right female breast, unspecified estrogen receptor status, unspecified site of breast ([facility]) Social History Tobacco Use Types Packs/Day Years [...] any clubs o r organizations such as quaker groups, unions, fraternal or athletic groups, or [...] Answer Date Recorded Total Score 0 03/07/2022 [facility] of Occupat ional Health - [...] [facility] Physicians Plastic and Reconstructive Surgery [address] [place] [address] [address] [place] [phone] Shereen Smallwood PA-C [address] [facility], [facility] [address] [place] [address] 10/26/2024 8:30 AM EDT Telephone Visit [facility] Gynecology Oncology, A Department of [address] [place] [address] [place] [address] [place] [address], [address] [place], [place] [phone] documented as of this encounter Visit Diagnoses Diagnosis Malignant neoplasm of right female breast, unspecified estrogen receptor status, unspecified site of breast ([facility]) documented in this encounter Additional Health Concerns Assessment Noted Time PHQ-9 Depression Total Score: 0 03/07/19 23 11:14 AM EST documented as of this encounter Care Teams Agent Broker Relationship Specialty Start Date End Date Amy Collier APRN-ESPERANZA [address] [place] [address] PCP - General 11/28/16 documented as of this encounter
--- OUTSIDE RECORDS SUMMARY | 2024-08-24 11:13 | XMS_ITS | Encounter Summary ---
Author Organization [facility] Address [address] [place] [address] Care Team Providers Care Mortuary Operations Manager Name Role Phone Randy Lu MD Primary Care Provider [phone] Encounter Details Date Type Department Care Team ([facility] Contact Info) Description 07/29/[address] [facility] [address] [place] [address] Evan Thompson DO [address] [place], [facility] Social History Tobacco Use Types Packs/Day Years Used Date Smoking Tobacco: Never Alcohol Use Standard Drinks/Week Comments [...] Department Care Team (Late Contact Info) Description 06/12/2025 10:00 AM EDT Office [facility] [address] [facility] [place] [address] Evan Thompson DO [address] [place], [place] [phone] documented as of this encounter Visit Diagnoses Not on filedocumented in this encounter Care Teams Mortuary Operations Manager Relationship Specialty Start Date End Date Randy Lu MD PCP - General Family Medicine 04/02/23 documented as of this encounter
--- OUTSIDE RECORDS SUMMARY | 2024-08-24 11:13 | XMS_ITS | Encounter Summary ---
Author Organization [facility] Address [facility]-[id number] [address] [place] [address] Care Team Providers Care Rent And Miscellaneous Remittance Clerk Name Role Phone Amy Collier FERTILIZER APPLICATOR-SPACE OFFICER Primary Care Provider + Encounter Details Date Type Department Care Team (Late st Contact Info) Description 04/03/2023 Orders Only [facility] Internal Medicine - Family Medicine [address] [place] [phone] Amy Collier APRN-SPACE OFFICER [address] [place] [address] Social History Tobacco Use Types Packs/Day Years [...] often do you attend chur ch or shinto services? More than 4 times per year 02/27/2022 Do you belong to any clubs o r organizations such as anglican groups, unions, fraternal or athletic groups, or [...] Answer Date Recorded Total Score 0 03/07/2022 [facility] of Occupat ional Health - Occupational Stress [...] 9:30 AM EDT Office Visit [facility] Physicians Plastic and Reconstructive Surgery [address] [facility] [address] [place] [phone] Shereen Smallwood PA-C [address] [facility], [facility] [address] [place] [address] 10/26/2024 8:30 AM EDT Telephone Visit [facility] Gynecology Oncology, A Department of [address] [place] [phone] [place] [address] [place] [address], [address] [place] [address] documented as of this encounter Procedures Procedure Name Priority Date/Time Associated Diagnosis Comments SURGICAL PATHOLOGY Routine 04/02/2023 10:49 AM EST documented in this encounter Results * Surgical Pathology (04/02/2023 10:49 AM EST) Amy LINDQUIST PATHOLOGY/CYTOLOGY ORDER CATIE Final Result MANUALLY TRANSCRIBED RESULTS documented in this encounter Visit Diagnoses Not on filedocumented in this encounter Additional Health Concerns Assessment Noted Time PHQ-9 Depression Total Score: 0 03/07/19 23 11:14 AM EST documented as of this encounter Care Teams Rent And Miscellaneous Remittance Clerk Relationship Specialty Start Date End Date Amy Collier APRN-CNP [address] [place] [address] PCP - General 11/28/16 documented as of this encounter
--- OUTSIDE RECORDS SUMMARY | 2024-08-24 11:13 | XMS_ITS | Encounter Summary ---
Author Organization [facility] Address [facility]-[id number] [address] [place] [address] Care Team Providers Care Real Estate Economist Name Role Phone Amy Collier DEPARTMENT CLERK-ECHOCARDIOGRAPH TECH Primary Care Provider + Encounter Details Date Type Department Care Team (Late st Contact Info) Description 04/27/2023 Orders Only [facility] Internal Medicine - Family Medicine [address] [place] [address] External, Scanning Provider Social History Tobacco Use [...] How often do you attend chur or faith services? More than 4 times per year 02/27/2022 Do you belong to any clubs o r organizations such as sabianist groups, unions, fraternal or athletic groups, or [...] Answer Date Recorded Total Score 0 03/07/2022 [facility] of Occupat ional Health [...] Recorded Do you need help finding a [facility] career center and/or a training program? No [...] Description 08/29/2024 9:30 AM EDT Office Visit [facility] Physicians Plastic and Reconstructive Surgery [address] [facility] [address] [place] [phone] Shereen Smallwood PA-C 5[address] [facility] [address] [place] [phone] 10/26/2024 8:30 AM EDT [facility]phone [facility], A Department of [place] [address] [facility] [address] [place] [address] Raymond Sepulveda MD [address] [place] [address], [address] [place] [address] documented as of this encounter Procedures Procedure Name Priority Date/Time Associated Diagnosis Comments US TRANSVAGINAL NON OB Routine 04/24/2023 5:05 PM EST documented in this encounter Results * Ultrasound transvaginal non OB (04/24/2023 5:05 PM EST) Anatomical Region Laterality Modality Body Ultrasound us Scanning Provider External IMG US ORDERABLES Fin al Result documented in this encounter Visit Diagnoses Not on filedocumented in this encounter Additional Health Concerns Assessment Noted Time PHQ-9 Depression Total Score: 0 03/07/19 23 11:14 AM EST documented as of this encounter Care Teams Real Estate Economist Relationship Specialty Start Date End Date Amy Collier, DEPARTMENT CLERK-ECHOCARDIOGRAPH TECH [address] [place] [address] PCP - General 11/28/16 documented as of this encounter
--- OUTSIDE RECORDS SUMMARY | 2024-08-24 11:13 | XMS_ITS | Encounter Summary ---
Author Organization [facility] Sys tem Address [facility] [place]-[id number] [address] [place] [address] Care Team Providers Care Sliding Joint Maker Name Role Phone Amy Collier FOOD TECHNOLOGIST-SHIRRER Primary Care Provider + Encounter Details Date Type Department Care Team (Late st Contact Info) Description 04/07/2023 Orders Only [facility] Internal Medicine - Family Medicine [address] [place] [address] External, Scanning Provider Social History [...] How often do you attend chur or jainism services? More than 4 times per year 02/27/2022 Do you belong to any clubs o r organizations such as mormon groups, unions, fraternal or athletic groups, or [...] Answer Date Recorded Total Score 0 03/07/2022 [facility] of Occupat ional Health [...] on file documented as of this encounter Progress Notes * Ana Ibrahim - 04/07/2023 8:52 AM EST Sent william msg * Susan Horton CMA - 04/07/2023 8:52 AM EST Patient has breast cancer and a wellness is not her concern right now. documented in this encounter Plan of Treatment Upcoming Encounters Date Type Department Care Team (Late st Contact Info) Description 08/29/2024 9:30 AM EDT Office Visit [facility] Physicians Plastic and Reconstructive Surgery [address] [place] [address] [address] [place] [phone] Shereen Smallwood PANicolasC [address] [facility], [address] [place] [address] 10/26/2024 8:30 AM EDT Telephone Visit [facility] Gynecology Oncology, A Department of [facility] [address] [facility] [address] [place] [phone] [place] [address] [place] [address], [address] [place] [address] documented as of this encounter Visit Diagnoses Not on filedocumented in this encounter Additional Health Concerns Assessment Noted Time PHQ-9 Depression Total Score: 0 03/07/19 23 11:14 AM EST documented as of this encounter Care Teams Sliding Joint Maker Relationship Specialty Start Date End Date Amy Collier APRN-SHIRRER [address] [place] [address] PCP - General 11/28/16 documented as of this encounter
--- OUTSIDE RECORDS SUMMARY | 2024-08-24 11:13 | XMS_ITS | Encounter Summary ---
Author Organization [facility] Address [facility] [place] [address] Care Team Providers Care Senior Drafter Name Role Phone Nilda Carolina RICHTER Unavailable [phone] Jessica Hope MD Unavailable [phone] Lynda Manuel CNP Primary Care Provider [phone] Shereen Smallwood PA-C Unavailable [phone] Radha Martinez RN Unavailable Source Comments In the event this information is protected by the Federal Confidentiality of Alcohol and Drug AbusePatient Records regulations: The Federal rules restrict any use of the information to criminally investigate or prosecute any alcohol or drug abuse patient.[facility] Encounter Details Date Type Department Care Team (Late st Contact Info) Description 07/22/2024 Lab Requisition [facility] [address] [place] [address] [place] [address] [place] [address] Person encountering health services to consult on behalf of another person Social History Tobacco Use Types Packs/Day Years [...] is lower risk 7 07/21/2024 Data from: https://www.neighborhoodatlas.[facility]/. Last address used for calculation [address] 07/21/2024 Comments Unknown Sex and Gender Information Value Date Recorded Sex Assigned at Not on file Legal Sex Female 3:51 PM EDT Gender Identity Not on file Sexual Orientation Not on file documented as of this encounter Plan of Treatment Not on file documented as of this encounter Procedures Procedure Name Priority Date/Time Associated Diagnosis Comments OUTSIDE SURG PATH SLIDE REVIEW Routine 07/22/2024 3:52 PM EDT Person encountering health services to consult on behalf of another person documented in this encounter Results * OUTSIDE SURG PATH SLIDE REVIEW (07/22/2024 3:52 PM EDT) Case Report Surgical Pathology Report Case: [id number] Authorizing Provider: Aurelia Oneill MD Collected: 07/22/2024 03:52 PM [facility] Received: 07/22/2024 03:51 PM [facility] Pathologist: Michael López MD Specimen: Slide(s), 11 SLIDES [id number] 08/09/2024 9:01 AM EDT [facility] FINAL DIAGNOSIS Liver mass, biopsy: - Adenocarcinoma, compatible with breast origin. 08/09/2024 9:01 AM EDT [facility] at 1337 EDT Diagnosis Comment Tumor cells are positive for CK7 and GATA3, with weak expression for ER. Negative stains include CK19, TN, and CDX2. 08/09/2024 9:01 AM EDT [facility] Performing Lab Diagnostic interpretation performed at: [facility], [address] [place] [address], [address] [id number] Dental Insurance Biller: Derick Meadows MD 08/09/2024 9:01 AM EDT [facility] Addendum Breast biomarkers (ER, PgR, and HER2) performed at the outside institution are available for review at the [facility] and demonstrate the tumor cells to be positive for ER (30% nuclear staining of tumor cells with moderate staining intensity), negative for TN (<1% nuclear staining of tumor cells), and negative for HER2 (score of 1+). RS/rs 08/09/24 08/09/2024 9:01 AM EDT [facility] Addendum electronically signed by Kev Kang MD on 08/09/2024 at 0901 EDT Disclaimer Laboratory Developed Test (LDT) Disclaimer: Performance characteristics of immunohistochemica l, immunofluorescent, and chromogenic in-situ hybridization tests have been determined by the performing laboratory within [facility]'s [facility] Pathology and Laboratory Medicine Department ([facility], [facility], [facility], [facility], [facility], [facility], or [facility]) in a manner consistent with CLIA requirements. One or more of these tests may not have been cleared or approved by the FDA. [facility] is regulated under CLIA as qualified to perform high-complexity testing. These tests are used for clinical purposes. These should not be regarded as investigational or for research. Positive and negative controls stain appropriately. 08/09/2024 9:01 AM EDT [facility] Blocks or Slides MICROSCOPE SLIDE / Unknown 07/22/2024 3:52 PM EDT 07/22/2024 3:51 PM EDT us Aurelia Oneill MD SURGICAL PATHOLOGY Edited Result - Final [facility] [address] [facility] [address] documented in this encounter Visit Diagnoses Diagnosis Person encountering health services to consult on behalf of another person Other person consulting on behalf of another person documented in this encounter Care Teams Senior Drafter Relationship Specialty Start Date End Date Lynda Manuel, AVIONICS INTEGRATION ENGINEER [address] [facility] [place] [address] PCP - General Family Medicine 06/14/24 Carolina Munguia APRN [address] [facility] [address] [place] [address] 12/04/23 Jessica Hope MD [address] [place] [address] Referring Hematology/Oncology 06/14/24 Shereen Smallwood PA-C [address] [facility] [address] [place] [address] [facility] Referring Orthopedics 06/15/24 [place] [address] [place] [address] Specialty Service Station Operator Hematology/Oncology 07/31/24 documented as of this encounter
--- OUTSIDE RECORDS SUMMARY | 2024-08-24 11:13 | XMS_ITS | Encounter Summary ---
Author Organization [facility] Address [id number] [address] [place] [address] Care Team Providers Care Photographic Artist Name Role Phone Amy Collier ELEVATOR STARTER-MATTRESS FINISHER Primary Care Provider + Encounter Details Date Type Department Care Team (Late st Contact Info) Description 04/14/2023 Orders Only [facility] - Family Medicine [address] [place] [phone] Randy Lu, DO [address] [facility], [place] [place] [address] Social History Tobacco Use Types Packs/Day Years [...] Answer Date Recorded Total Score 0 03/07/2022 [facility] of Occupat ional Health - Occupational Stress [...] [facility]astic [facility] Reconstructive Surgery [address] [facility] [address] [place] [address] Shereen Smallwood PA-C [address] [facility], [facility] [address] [place] [address] 10/26/2024 8:30 AM EDT Telephone Visit [facility] Gynecology Oncology, A Department of [address] [place] [phone] Raymond Sepulveda MD [address] [facility], [address] [place] [address] documented as of this encounter Visit Diagnoses Not on filedocumented in this encounter Additional Health Concerns Assessment Noted Time PHQ-9 Depression Total Score: 0 03/07/19 23 11:14 AM EST documented as of this encounter Care Teams Photographic Artist Relationship Specialty Start Date End Date Amy Collier APRN-MATTRESS FINISHER [address] [place] [address] PCP - General 11/28/16 documented as of this encounter
--- OUTSIDE RECORDS SUMMARY | 2024-08-24 11:13 | XMS_ITS | Encounter Summary ---
Author Organization [facility] Address [facility]-[id number] [address] [place] [address] Care Team Providers Care Animal Keeper Name Role Phone Amy Collier THERMOSCREW OPERATOR-BANKING SERVICES ADVISOR Primary Care Provider + Encounter Details Date Type Department Care Team (Late st Contact Info) Description 11/03/2023 Orders Only [facility] - Family Medicine [address] [place] [phone] External, Scanning Provider Social History Tobacco Use Types Packs/Day Years Used Date Smoking Tobacco: Never Smokeless Tobacco: Never Alcohol Use Standard Drinks/Week Comments Yes 0 (1 standard drink = 0.6 oz pur e alcohol) Socially [facility] Utilities Answer Date Recorded In the past 12 months has [employer] electric, gas, oil, or water company threatened to shut off services in your home? No 10/28/2023 Social Connection and Isolat ion Panel [NHANES] Answer Date Recorded In a typical week, how many times do you talk on the phone with family, friends, or neighbors? Twice a week 02/27/2022 How often do you get togethe r with friends or relatives? Three times a week 02/27/2022 How often do you attend chur ch or church services? More than 4 times per year 02/27/2022 Do you belong to any clubs o r organizations such as yazidi groups, unions, fraternal or athletic groups, or [...] Answer Date Recorded Total Score 0 03/07/2022 [facility] of Occupat ional Health - Occupational Stress [...] medical appointments or from getting medications? No 10/01 In the past 12 months, has l ack of transportation kept you from meetings, work, or from getting things needed for daily living? No 10/28/2023 Housing Instability Answer Date Recorde d Are you worried or concerned that in the next two months you may not have stable housing that you own, rent or stay in as a part of a household? No 10/28/2023 Childcare Answer Date Recorded Do problems getting [...] got money to buy more. Never True 10/28/2023 Within the past 12 months th e food we bought just didn't last and we didn't have money to get more. Never True 10/28/2023 Purpose - Life Answer Date Recorded I [...] Description 08/29/2024 9:30 AM EDT Office Visit [facility] Plastic and Reconstructive Surgery [address] [place] [address] [address] [place] [phone] Shereen Smallwood PA-C [address] [place] [address], [facility] [address] [place] [address] 10/26/2024 8:30 AM EDT Telephone Visit [facility] Gynecology Oncology, A Department of [address] [place] [address] [place] [address] [place] [address], [address] [place], [place] [phone] documented as of this encounter Procedures Procedure Name Priority Date/Time Associated Diagnosis Comments PET CT SKULL TO THIGH Routine 10/26/2023 5:33 PM EDT documented in this encounter Results * PET CT skull to thigh (10/26/2023 5:33 PM EDT) Anatomical Region Laterality Modality Nuc Med N/A Positron Emissio n Tomography (PET) us Scanning Provider External IMG PET ORDERABLES Fi nal Result documented in this encounter Visit Diagnoses Not on filedocumented in this encounter Additional Health Concerns Assessment Noted Time PHQ-9 Depression Total Score: 0 03/07/19 23 11:14 AM EST documented as of this encounter Care Teams Animal Keeper Relationship Specialty Start Date End Date Amira, Amy L, THERMOSCREW OPERATOR-BANKING SERVICES ADVISOR [address] [place] [address] PCP - General 11/28/16 documented as of this encounter
--- OUTSIDE RECORDS SUMMARY | 2024-08-24 11:13 | XMS_ITS | Encounter Summary ---
Author Organization [facility] Address [id number] [address] [place] [address] Care Team Providers Care Computational Chemist Name Role Phone Amy Collier CAN PATCHER-COMMUNITY AFFAIRS MANAGER Primary Care Provider + Encounter Details Date Type Department Care Team (Late st Contact Info) Description 05/13/2023 Orders Only [facility] - Family Medicine [address] [place] [phone] External, Scanning Provider Social History Tobacco Use [...] How often do you attend chur or orthodoxy services? More than 4 times per year [...] Answer Date Recorded Total Score 0 03/07/2022 [facility] of Occupat ional Health - [...] Description 08/29/2024 9:30 AM EDT Office Visit [facility] Plastic and Reconstructive Surgery [address] [facility] [address] [place] [phone] Sherene Smallwood PA-C [address] [facility], [facility] [address] [place] [phone] 10/26/2024 8:30 AM EDT [facility], A Department of [place] [address] [facility] [address] [place] [address] Raymond Sepulveda MD [address] [place] [address], [address] [place] [address] documented as of this encounter Procedures Procedure Name Priority Date/Time Associated Diagnosis Comments XR CHEST 1 VW Routine 05/13/2023 3:39 PM EDT documented in this encounter Results * X-ray chest 1 view (05/13/2023 3:39 PM EDT) Anatomical Region Laterality Modality Body, Chest N/A Computed Radiogr aphy us Scanning Provider External IMG DIAGNOSTIC IMAGIN G ORDERABLES Final Result documented in this encounter Visit Diagnoses Not on filedocumented in this encounter Additional Health Concerns Assessment Noted Time PHQ-9 Depression Total Score: 0 03/07/19 23 11:14 AM EST documented as of this encounter Care Teams Computational Chemist Relationship Specialty Start Date End Date Amy Collier, CAN PATCHER-COMMUNITY AFFAIRS MANAGER [address] [place] [address] PCP - General 11/28/16 documented as of this encounter
--- OUTSIDE RECORDS SUMMARY | 2024-08-24 11:13 | XMS_ITS | Encounter Summary ---
Author Organization [facility] Address [address] [place] [address] Care Team Providers Care Computer Aide Name Role Phone Randy Lu MD Primary Care Provider Encounter Details Date Type Department Care Team ([facility] Contact Info) Description 01/07/2024 Abstract [facility] [address] [place] [address] Evan Thompson DO [address] [place], [facility] Social History Tobacco Use Types Packs/Day Years [...] 06/12/2025 10:00 AM EDT Office Visit [facility] [address] [place] [address] Evan Thompson DO [address] [place], [place] [phone] documented as of this encounter Visit Diagnoses Not on filedocumented in this encounter Care Teams Computer Aide Relationship Specialty Start Date End Date Randy Lu MD PCP - General Family Medicine 04/02/23 documented as of this encounter
--- OUTSIDE RECORDS SUMMARY | 2024-08-24 11:13 | XMS_ITS | Encounter Summary ---
Author Organization [facility] tem Address [facility]-[id number] [address] [place] [address] Care Team Providers Care Interventional Radiology Tech Name Role Phone Amy Collier WATER SOFTENER INSTALLER-SOLE CUTTER Primary Care Provider + Encounter Details Date Type Department Care Team (Late st Contact Info) Description 03/10/2023 Orders Only [facility] - Family Medicine [address] [place] [address] External, Scanning Provider Social History [...] any clubs o r organizations such as synagogue groups, unions, fraternal or athletic groups, or [...] Answer Date Recorded Total Score 0 03/07/2022 [facility] of Occupat ional Health - Occupational [...] Description 08/29/2024 9:30 AM EDT Office Visit [facility] Reconstructive Surgery [address] [facility] [address] [place] [phone] Shereen Smallwood PA-C [address] [facility], [facility] [address] [place] [address] 10/26/2024 8:30 AM EDT [facility] A Department of [facility] [address] [facility] [address] [place] [address] Raymond Sepulveda MD [address] [place] [address], [address] [place] [address] documented as of this encounter Procedures Procedure Name Priority Date/Time Associated Diagnosis Comments HM MAMMOGRAPHY Routine 03/06/2023 8:23 AM EST documented in this encounter Results * HM MAMMOGRAPHY (03/06/2023 8:23 AM EST) Anatomical Region Laterality Modality Other us Scanning Provider External HEALTH MAINTENANCE nal Result documented in this encounter Visit Diagnoses Not on filedocumented in this encounter Additional Health Concerns Assessment Noted Time PHQ-9 Depression Total Score: 0 03/07/19 23 11:14 AM EST documented as of this encounter Care Teams Interventional Radiology Tech Relationship Specialty Start Date End Date Amy Collier, WATER SOFTENER INSTALLER-SOLE CUTTER [address] [place] [address] PCP - General 11/28/16 documented as of this encounter
--- OUTSIDE RECORDS SUMMARY | 2024-08-24 11:13 | XMS_ITS | Encounter Summary ---
Author Organization [employer] [facility] Address [id number] [address] [place] [address] Care Team Providers Care Barnworker Groom Name Role Phone Amy Collier DRYING RACK CHANGER-INDUSTRIAL LABORER Primary Care Provider + Reason for Referral * Specialty Diagnoses / Procedures Referred By Jose olmedo Referred To Contact Vascular Surgery TIAGO CARSON [address] [place] [address] Referral ID Status Reason Start Date Expiration Date Visits Re quested Visits Authorized Encounter Details Date Type Department Care Team (Late st Contact Info) Description 09/21/2023 Orders Only [facility] - Family Medicine [address] [place] [address] Ref Prov, [place] [address] Social History Tobacco Use Types Packs/Day Years [...] any clubs o r organizations such as tenriism groups, unions, fraternal or athletic groups, or [...] Answer Date Recorded Total Score 0 03/07/2022 [facility] of Occupat ional [facility] - Occupational Stress Questionnaire Answer Date [...] Description 08/29/2024 9:30 AM EDT Office Visit [facility]icians Plastic and Reconstructive Surgery [address] [place] [address] [address] [place] [address] Shereen Smallwood PA-C [address] [facility], [facility] [address] [place] [address] 10/26/2024 8:30 AM EDT Telephone Visit [facility] Gynecology Oncology, A Department of [address] [place] [address] [place] [address] [place] [address], [address] [place], [place] [phone] documented as of this encounter Procedures Procedure Name Priority Date/Time Associated Diagnosis Comments AMB REFERRAL TO VASCULAR SURGERY Routine 09/18/2023 2:06 PM EDT VASC VENOUS DUPLEX INSUFFICIENCY LOWER BILATERAL Routine 09/18/2023 10:26 AM EDT documented in this encounter Results * Ambulatory referral to Vascular Surgery (09/18/2023 2:06 PM EDT) us Not In System Ref Prov OUTPATIENT REFERRAL ORDER CATIE Final Result MANUALLY TRANSCRIBED RESULTS * Vas venous duplex insufficiency lwr bi (09/18/2023 10:26 AM EDT) Anatomical Region Laterality Modality Vascular Bilateral Ultrasound us Not In System Ref Prov CV VASCULAR ORDERABLES Fi nal Result documented in this encounter Visit Diagnoses Not on filedocumented in this encounter Additional Health Concerns Assessment Noted Time PHQ-9 Depression Total Score: 0 03/07/19 23 11:14 AM EST documented as of this encounter Care Teams Barnworker Groom Relationship Specialty Start Date End Date Amy Collier APRN-INDUSTRIAL LABORER [address] [place] [address] PCP - General 11/28/16 documented as of this encounter
--- OUTSIDE RECORDS SUMMARY | 2024-08-24 11:13 | XMS_ITS | Encounter Summary ---
Author Organization [facility] Address [id number] [address] [place] [address] Care Team Providers Care Artillery Maintenance Supervisor Name Role Phone Amy Collier BALANCE SHEET ANALYST-HOGSHEAD DUMPER Primary Care Provider + Encounter Details Date Type Department Care Team (Late st Contact Info) Description 03/23/2023 Orders Only [facility] - Family Medicine [address] [place] [address] Nat Javed CMA Abnormal mammogram of right breast Social History Tobacco Use Types Packs/Day Years [...] How often do you attend chur or scientologist services? More than 4 times per year 02/27/2022 Do you belong to any clubs o r organizations such as religion groups, unions, fraternal or athletic groups, or [...] Answer Date Recorded Total Score 0 03/07/2022 [facility] of Occupat ional Health - Occupational [...] Recorded Do you need help finding a [facility] career [facility] and/or a training program? No [...] Description 08/29/2024 9:30 AM EDT Office Visit [facility] Plastic and Reconstructive Surgery [address] [facility] [address] [address] [place] [phone] Shereen Smallwood, PANicolasC [address] [facility] [address] [place] [address] 10/26/2024 8:30 AM EDT Telephone Visit [facility] Gynecology Oncology, A Department of [facility] [address] [facility] [address] [place] [phone] Raymond Sepulveda MD [address] [place] [address], [address] [place], [place] [phone] documented as of this encounter Procedures Procedure Name Priority Date/Time Associated Diagnosis Comments US BREAST RT LIMITED Routine 03/20/2023 Abnormal mammogram of right breast documented in this encounter Results * Ultrasound breast limited right (03/20/2023) Anatomical Region Laterality Modality Breast Right Ultrasound 03/20/2023 us Amy LINDQUIST [facility] US ORDERABLES Final Result documented in this encounter Visit Diagnoses Diagnosis Abnormal mammogram of right breast documented in this encounter Additional Health Concerns Assessment Noted Time PHQ-9 Depression Total Score: 0 03/07/19 23 11:14 AM EST documented as of this encounter Care Teams Artillery Maintenance Supervisor Relationship Specialty Start Date End Date Amy Collier APRN-CNP [address] [place] [address] PCP - General 11/28/16 documented as of this encounter
--- OUTSIDE RECORDS SUMMARY | 2024-08-24 11:13 | XMS_ITS | Encounter Summary ---
Author Organization [employer] Address [id number] [address] [place] [address] Care Team Providers Care Reamer Hand Name Role Phone Amy Collier NUCLEAR MEDICINE TECHNICIAN-MARKETING AUTOMATION MANAGER Primary Care Provider + Encounter Details Date Type Department Care Team (Late st Contact Info) Description 10/15/2023 Orders Only [facility] [address] [facility] [address] [place] [address] Ref Prov, [place] [address] Social History Tobacco Use Types Packs/Day Years [...] often do you attend chur ch or methodist services? More than 4 times per year [...] Answer Date Recorded Total Score 0 03/07/2022 [facility] Occup[facility] ional [facility] - Occupational [...] Recorded Do you need help finding a [facility] career center and/or a training program? No 02/27/2022 Hunger Screening Answer Date Recorded Within the past 12 months we worried whether our food would run out before we got money to buy more. Never True 10/16/2023 Within the past 12 months th e food we bought just didn't last and we didn't have money to get more. Never True 10/16/2023 Purpose - Life Answer Date Recorded I [...] and Reconstructive Surgery [address] [facility] [address] [place] [phone] Shereen Smallwood PANicolasC [address] [facility] [place] [phone] 10/26/2024 8:30 AM EDT Telephone Visit [facility] Oncology, A Department of [place] [id number] [facility] [address] [place] [phone] [place] [address] [place] [address], [address] [place] [address] documented as of this encounter Procedures Procedure Name Priority Date/Time Associated Diagnosis Comments MULTIPLE LABS Routine 10/15/2023 8:06 AM EDT documented in this encounter Results * Multiple labs (10/15/2023 8:06 AM EDT) us Not In System Ref Prov MD IMAGING Final Res ult MANUALLY TRANSCRIBED RESULTS documented in this encounter Visit Diagnoses Not on filedocumented in this encounter Additional Health Concerns Assessment Noted Time PHQ-9 Depression Total Score: 0 03/07/19 23 11:14 AM EST documented as of this encounter Care Teams Reamer Hand Relationship Specialty Start Date End Date Amy Collier APRN-MARKETING AUTOMATION MANAGER [address] [place] [address] PCP - General 11/28/16 documented as of this encounter
--- OUTSIDE RECORDS SUMMARY | 2024-08-24 11:13 | XMS_ITS | Encounter Summary ---
Author Organization [facility] Address [address] [place] [address] Care Team Providers Care Mobile Electronics Installer Name Role Phone Randy Lu MD Primary Care Provider Encounter Details Date Type Department Care Team ([facility] Contact Info) Description 11/16/2023 Abstract [facility] [address] [place] [address] Evan Thompson DO [address] [place], [facility] Social History Tobacco Use Types [...] 06/12/2025 10:00 AM EDT Office Visit [facility] [address] [place] [address] Evan Thompson DO [address] [place], [place] [id number] documented as of this encounter Visit Diagnoses Not on filedocumented in this encounter Care Teams Mobile Electronics Installer Relationship Specialty Start Date End Date Randy Lu MD PCP - General Family Medicine 04/02/23 documented as of this encounter
--- OUTSIDE RECORDS SUMMARY | 2024-08-24 11:13 | XMS_ITS | Encounter Summary ---
Author Organization [facility] Address [id number] [address] [place] [address] Care Team Providers Care Counter Waitress/Waiter Name Role Phone Amy Collier WEIGHT TESTER-BERRY GROWER Primary Care Provider + Encounter Details Date Type Department Care Team (Late st Contact Info) Description 07/14/2023 Orders Only [facility] - Family Medicine [address] [place] [address] External, Scanning Provider Social History [...] How often do you attend chur or latter-day services? More than 4 times per year 02/27/2022 Do you belong to any clubs o r organizations such as catholic groups, unions, fraternal or athletic groups, [...] Answer Date Recorded Total Score 0 03/07/2022 [facility] Occupat ional Health - Occupational [...] help finding a [facility] career center and/or a training [...] 9:30 AM EDT [facility] [address] [facility] [address] [place] [phone] Shereen Smallwood PA-C [address] [facility] [facility] [address] [place] [phone] 10/26/2024 8:30 AM EDT [facility], A Department of [facility] [address] [facility] [address] [place] [address] Raymond Sepulveda MD [address] [place] [address], [address] [place] [address] documented as of this encounter Procedures Procedure Name Priority Date/Time Associated Diagnosis Comments US BREAST RT LIMITED Routine 07/10/2023 10:53 AM EDT documented in this encounter Results * Ultrasound breast limited right (07/10/2023 10:53 AM EDT) Anatomical Region Laterality Modality Breast Right Ultrasound us Scanning Provider External IMG US ORDERABLES Fin al Result documented in this encounter Visit Diagnoses Not on filedocumented in this encounter Additional Health Concerns Assessment Noted Time PHQ-9 Depression Total Score: 0 03/07/19 23 11:14 AM EST documented as of this encounter Care Teams Counter Waitress/Waiter Relationship Specialty Start Date End Date Amy Collier, WEIGHT TESTER-BERRY GROWER [address] [place] [address] PCP - General 11/28/16 documented as of this encounter
--- OUTSIDE RECORDS SUMMARY | 2024-08-24 11:13 | XMS_ITS | Encounter Summary ---
Author Organization [facility] Address [address] [place] [address] Care Team Providers Care Clinical Project Manager Name Role Phone Randy Lu MD Primary Care Provider Encounter Details Date Type Department Care Team (Late Contact Info) Description 02/10/2024 Abstract [facility] [address] [place] [address] Evan Thompson DO [facility] Janeth [place], [facility]11 Social History Tobacco Use Types Packs/Day Years [...] 06/12/2025 10:00 AM EDT Office Visit [facility] [address] [place] [address] Evan Thompson DO [facility] [place] [place] [id number] documented as of this encounter Visit Diagnoses Not on filedocumented in this encounter Care Teams Clinical Project Manager Relationship Specialty Start Date End Date Randy Lu MD PCP - General Family Medicine 04/02/23 documented as of this encounter
--- OUTSIDE RECORDS SUMMARY | 2024-08-24 11:13 | XMS_ITS | Clinical Summary ---
Author Organization [facility] Address [address] [place] [address] Care Team Providers Care Nitrogen Operator Name Role Phone NildaCarolina momin ROBER Unavailable [phone] Jessica Hope MD Unavailable [phone] Lynda Manuel CNP Primary Care Provider [phone] Shereen Smallwood PA-C Unavailable [phone] Radha Martinez RN Unavailable Allergies Active Allergy Reactions Criticality Noted Date Comments Adhesive Rash Low 11/27/2021 Ceftaroline Fosamil Other: See Comments Low 025 Daptomycin Other: See Comments Low 11/28/2023 Other Reaction(s): Flushing Doxycycline Rash Low 12/09/2023 Meperidine Other: See Comments,Rash,Swelli ng High 03/17/2018 Other Reaction(s): Other, Unknown Tetracycline Rash 01/25/2024 Vancomycin Other: See Comments Medium 01/25/2024 Other Reaction(s): Other Intolerance: experienced acute kidney injury during a hospitalization, suspected due to vancomycin. Acute Kidney Injury Medications 0.9 % sodium chloride (NACL 0.9%) infusion 04/15/2024 Acti ve amikacin (AMIKIN) 500 mg/2 mL soln 07/14/2024 Active anastrozole (ARIMIDEX) 1 mg tablet Take 1 mg by mouth. 01/08/2024 Active ELIQUIS 5 mg tab(s) Take 5 mg by mouth. 09/18/2023 Active carvedilol (COREG) 12.5 mg tablet Take 12.5 mg by mouth. 07/14/2024 Active cyanocobalamin (VITAMIN B-12) 1,000 mcg tab Take 1,000 mcg by mouth. 12/10/2023 Active cyclobenzaprine (FLEXERIL) 10 mg tablet Take 1 tablet by mouth every evening. 04/28/2023 Active diazePAM (VALIUM) 5 mg tablet Take 1 tablet (5 mg total) by mouth every 12 (twelve) hours as needed for anxiety or muscle spasms (Give 30min prior to dressing change) for up to 10 days for anxiety 05/12/2024 Active FEROSUL 325 mg (65 mg iron) tablet Take 1 tablet by mouth two times a day with meals. Active folic acid 1 mg tablet Take 1 mg by mouth. 05/22/2024 Active gabapentin (NEURONTIN) 300 mg capsule Take 300 mg by mouth. 05/02/2023 Active hydrOXYzine HCl (ATARAX) 25 mg tablet Take 25 mg by mouth. 05/12/2024 Active imipenem/cilast atin sodium (IMIPENEM-CILAS TATIN INTRAVENOUS) Inject 1,000 mg intravenously . 05/22/2024 Active magnesium oxide 400 mg magnesium tab Take 400 mg by mouth. Active omadacycline (NUZYRA) 150 mg tablet Take 300 mg by mouth. Active oxyCODONE IR (ROXICODONE) 10 mg tab Take 1 tablet by mouth every 6 hours as needed. 06/15/2024 Active oxyCODONE IR (ROXICODONE) 5 mg immediate release tablet Take 1 tablet (5 mg total) by mouth every 4 hours as needed for pain for up to 7 days. Max Daily Amount 30 mg 05/12/2024 Active potassium chloride (K-TAB) 10 mEq tablet TAKE TWO TABLETS BY MOUTH TWICE A DAY Active prochlorperazin e (COMPAZINE) 10 mg tablet 04/21/2023 Active pyridoxine, vitamin B6, (VITAMIN B6) 50 mg tablet Take 50 mg by mouth. 03/16/2024 Active spironolactone (ALDACTONE) 25 mg tablet Take 25 mg by mouth. 03/26/2023 Active CLOFAZIMINE, BULK, MISC Take 100 mg by mouth. Active Encounters Date Type Department Care Team Description 08/10/2024 Results Follow-Up Hematology/Oncology [address] [place] [address] Aurelia Oneill MD 07/27/2024 Patient Msg Hematology/Oncology [address] [place] [address] Provider, [facility]cf Xeloda restart 07/22/2024 Lab Requisition [facility] [address] [place] [address] Aurelia Oneill MD Person encountering health services to consult on behalf of another person 07/22/2024 Telephone Hematology/Oncology [id number] [place] [address] Aurelia Oneill MD Telehealth Nurse - Other 07/21/2024 3:00 PM EDT Visit (SP) Office Hematology/Oncology [address] [place] [address] Aurelia Oneill MD 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) 07/19/2024 8:00 AM EDT Office Visit Infectious Disease [address] [id number] Krystin Lizarraga MD Abscess (Primary Dx); 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 Last address used for calculation [address] 07/21/2024 Comments Unknown Sex and Gender Information Value Date Recorded Sex Assigned at Not on file Legal Sex Female 3:51 PM EDT Gender Identity Not on file Sexual Orientation Not on file Last Filed Vital Signs Vital Sign Reading Time Taken Comments Blood Pressure 140/95 07/21/2024 3:05 PM EDT Pulse 75 07/21/2024 3:05 PM EDT Temperature 36.8 C (98.3 F) 07/21/2024 3:05 PM EDT Respiratory Rate 18 07/21/2024 3:05 PM EDT Oxygen Saturation 100% 07/21/2024 3:05 PM EDT Inhaled Oxygen Concentration - - Weight 87.8 kg (193 lb 9 oz) 07/21/2024 3:05 PM EDT Height 177.8 cm (5' 10 ) 07/21/2024 3:01 PM EDT Body Mass Index 27.77 07/21/2024 3:01 PM EDT Plan of Treatment Health Maintenance Due Date Last Done Comments Anxiety Screening 1988 Depression Screening 1988 HIV Screening 1988 Hepatitis C Screening 1988 Hepatitis B Vaccine (1 of 3 - 19+ 3-dose series) 1989 Cervical Cancer Screening 10/11/1991 CT Colonography 10/11/2015 Colonoscopy 10/11/2015 Fecal Occult Blood 10/11/2015 Sigmoidoscopy 10/11/2015 Pneumococcal Vaccine: 50+ (1 of 1 - PCV) 2020 Shingrix Vaccine (1 of 2) 2020 Covid-19 Vaccine (3 - 2023-2 5 season) 2023 12/06/2020, 11/15/2020 Cologuard (FIT-DNA) 06/06/2024 06/06/2021 Colorectal Cancer Screening 06/06/2024 Mammogram Screening 10/15/2024 10/16/2023, 12/27/2021, 12/27/2021, Additional history exists Influenza Vaccine (Season Ended) 2024 11/20/2019, 11/14/2019, 12/13/2018, Additional history exists Lipid Screening 01/31/2027 01/31/2022 Diabetes Screening 06/16/2027 06/15/2024, 0 06/14/2024, 06/13/2024, Additional history exists DTaP,Tdap,Td Vaccine (2 - Td or Tdap) 07/08/2027 07/07/2017 Procedures Procedure Name Priority Date/Time Associated Diagnosis Comments OUTSIDE SURG PATH SLIDE REVIEW Routine 07/22/2024 3:52 PM EDT Person encountering health services to consult on behalf of another person PHOTO BREAST LEFT 07/19/2024 9:0 8 AM EDT PHOTO BREAST LEFT 07/19/2024 9:[address] OUTSIDE CD DICOM IMPORT 06/11/2024 CT OUTSIDE CD DICOM IMPORT 06/03/2024 BONE MARROW REFERENCE LAB CONSULT Routine 05/31/2024 9:19 PM EDT Person encountering health services to consult on behalf of another person from Last 3 Months Results * OUTSIDE SURG PATH SLIDE REVIEW (07/22/2024 3:52 PM EDT) Case Report Surgical Pathology Report Case: [id number] Authorizing Provider: Aurelia Oneill MD Collected: 07/22/2024 03:52 PM Ordering Location: [facility] Received: 07/22/2024 03:51 PM [facility] Pathologist: Michael López MD Specimen: Slide(s), 11 SLIDES [id number] 08/09/2024 9:01 AM EDT [facility] FINAL DIAGNOSIS Liver mass, biopsy: - Adenocarcinoma, compatible with breast origin. 08/09/2024 9:01 AM EDT [facility] at 1337 EDT Diagnosis Comment Tumor cells are positive for CK7 and GATA3, with weak expression for ER. Negative stains include CK19, CO, and CDX2. 08/09/2024 9:01 AM EDT [facility] Performing Lab Diagnostic interpretation performed at: [facility], [address] [place] [address], [facility] [place] [address] CLIA# [id number] [employer] Specialist: Derick Meadows MD 08/09/2024 9:01 AM EDT [facility] Addendum Breast biomarkers (ER, PgR, and HER2) performed at the outside institution are available for review at the [facility] and demonstrate the tumor cells to be positive for ER (30% nuclear staining of tumor cells with moderate staining intensity), negative for CO (<1% nuclear staining of tumor cells), and negative for HER2 (score of 1+). [facility] 08/09/24 08/09/2024 9:01 AM EDT [facility] Addendum electronically signed by Kev Kang MD on 08/09/2024 at 0901 EDT Disclaimer Laboratory Developed Test (LDT) Disclaimer: Performance characteristics of immunohistochemica l, immunofluorescent, and chromogenic in-situ hybridization tests have been determined by the performing laboratory within [facility]'s [facility] Pathology and Laboratory Medicine Department ([facility], [facility], [facility], [facility], [facility], [facility], or [facility]) in a manner consistent with CLIA requirements. One or more of these tests may not have been cleared or approved by the FDA. RT-PLM is regulated under CLIA as qualified to perform high-complexity testing. These tests are used for clinical purposes. These should not be regarded as investigational or for research. Positive and negative controls stain appropriately. 08/09/2024 9:01 AM EDT [facility] Blocks or Slides MICROSCOPE SLIDE / Unknown 07/22/2024 3:52 PM EDT 07/22/2024 3:51 PM EDT us Aurelia Oneill MD SURGICAL PATHOLOGY Edited Result - Final [facility] [address] [facility] Desk [address] [address], * PHOTO BREAST LEFT (07/19/2024 9:08 AM EDT) Anatomical Region Laterality Modality Other 07/19/2024 9:08 AM EDT us [facility]cf Provider IMAGES Final Result * PHOTO BREAST LEFT (07/19/2024 9:07 AM EDT) Anatomical Region Laterality Modality Other 07/19/2024 9:07 AM EDT Cc Provider IMAGES Final Result * CT-CT CHEST WO CONT IMPORT (06/11/2024) Anatomical Region Laterality Modality Other 06/11/2024 Narrative 07/04/2024 4:07 PM EDT Images were obtained outside of [facility] Procedure Note Provider, [facility] - 07/04/2024 Images were obtained outside of [facility] Cc Provider RADIOLOGY Final Result * PT-PET tumor subq tx strat sb-mt IMPORT (06/03/2024) Anatomical Region Laterality Modality Other 06/03/2024 Narrative 07/22/2024 5:49 AM EDT Images were obtained outside of [facility] Procedure Note Provider, [facility] - 07/22/2024 Images were obtained outside of [facility] Cc Provider RADIOLOGY Final Result * BONE MARROW REFERENCE LAB CONSULT (05/31/2024 9:19 PM EDT) Case Report Bone Marrow Pathology Report Case: [id number] Authorizing Provider: Jessica Hope MD Collected: 05/31/2024 09:19 PM Ordering Location: [facility] Received: 05/31/2024 09:20 PM [facility] Pathologist: Deidre Avelar MD, PhD Specimen: Slide(s), 13 SLIDES [id number] 06/12/2024 11:59 AM EDT [facility] FINAL DIAGNOSIS A. Outside materials received from [facility], [place], [place] (External ID [id number], 05/12/2024) Bone marrow aspirate smears, touch imprints, core biopsy and clot section: -Cellular bone marrow with maturing trilineage hematopoiesis and increased ring sideroblasts. -Increased storage iron. -See comment. Peripheral blood smear: -Pancytopenia [facility] June 11, 2024 06/12/2024 11:59 AM EDT [facility] at 1159 EDT Diagnosis Comment Thank you for sending this case in consultation for patient with pancytopenia and history of breast cancer. Per clinical notes, the patient has clinical stage IIIc, cT2c N3 invasive ductal carcinoma, status post neoadjuvant chemotherapy and bilaterial mastectomy in October 2023 and breast radiation. 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 She was on antibiotics as of the most recent clinical note (04/26/24), including tedezolid. The patient has pancytopenia with some evidence of dyspoiesis in the erythroid and megakaryocytic lineages and increased ring sideroblasts. However, molecular and cytogenetic testing reveal no definite clonal abnormality. 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 Taken together, the presence of the ring sideroblasts may relate to the patient's ongoing antibiotic therapy. Linezolid is associated with ring sideroblasts (PMID: [id number]) and may cause bone marrow suppression. Tedezolid is in the same class, although may be associated with less bone marrow suppression (PMID: [id number]). Overall, given the absence of evidence of clonal hematopoeisis, interval resampling following completion of the the antibiotic course may be helpful to further clarify, if cytopenias persist. Please do not hesitate to contact the Hematopathology Consult Service at [phone] for any questions or if additional follow-up information becomes available. 06/12/2024 11:59 AM EDT [facility] Microscopic Description PERIPHERAL BLOOD: CBC (05/12/2024) Diff: Manual WBC 2.0 k/uL Neutrophils % 54 Hemoglobin 8.7 g/dL Lymphocytes % 22 MCV 88.8 fL Monocytes % 16 RDW-CV Not provided Eosinophils % 6 Platelet Count 97 k/uL Basophils % 1 Immature Granulocytes % 0 Morphology/Interpr etation: Pancytopenia with normocytic anemia, occasional red cell fragments. BONE MARROW ASPIRATE: Result Normal Range 2 % Blasts 0-2 2 % Promyelocytes 1-5 40 % Myelos/Metas/Bands /Segs 32-72 2 % Eosinophils 1-6 1 % Basophils 0-1 7 % Monocytes 0-4 36 % Erythroid precursors 13-37 8 % Lymphocytes 7-23 2 % Plasma cells 0-2 Myeloid/Erythro (1.5-4): 1.5. Cells counted: 400. Iron stain result: Increase storage iron. Ring sideroblasts are increased. The staining is partially limited for interpretation by artifact but ring sideroblasts appear to be greater than 20%. Specimen Quality: Cellular, spicular, partially limited by staining artifact. Megakaryocytes: Present, some with atypical lobation. Erythropoiesis: Progressive maturation, megaloblastoid change, subset with irregular nuclear contours or basophilic stippling, but morphology may be partially affected by artifact. Granulopoiesis: Progressive maturation, partially limited for evaluation by artifact. BONE MARROW BIOPSY: Adequacy: Adequate. Cellularity: Approximately normocellular for age, 50-60%. ME ratio: Normal to decreased. Hematopoiesis: Trilineage maturation with relative erythroid and megakaryocytic hyperplasia. Megakaryocytes: Slightly increased with focal loose clustering. Megakaryocyte morphology: Variable with atypical forms including increased abnormal lobation as well as small and hypolobated forms. Lymphoid infiltrate: Focal small lymphoid aggregates comprised predominantly of small, mature lymphoid cells. Bone trabeculae: Increased remodeling. Other: Submitted stains are reviewed. CD34 shows no increase in blasts. CD117 shows variable staining including erythroid elements and mast cells. CLOT SECTION: Marrow particles: Many. Morphology: Similar to core biopsy. Subset of megakaryocytes with increased lobation. Other: Additional stains are performed at [facility] to further clarify the morphologic findings. CD34 shows no increase in blasts. CD117 and predominantly shows scattered mast cells. The 61 highlights the megakaryocytes, forms with the increased lobation. CD71 highlights the erythroid islands. CD3 shows scattered T cells. CD20 shows few, scattered B cells. CD138 is not increased, less than 5% of cellularity. IHC for kappa and lambda are limited by increased background but compatible with a polytypic pattern. Cyclin D1 is not increased. P53 is variable. CK AE1/AE3 is negative. ANCILLARY TESTS: Flow cytometry: By report, flow cytometry shows slightly increased blasts comprising 2 to 4% of total events. No aberrant patterns of antigen acquisition are identified on the maturing myeloid cells. Lymphoid cells appear unremarkable, and no significant plasma cell population is identified Cytogenetics: 46,XX[20]. FISH: Performed. No abnormalities on a myeloid FISH panel. Molecular: Performed. Results from a myeloid NGS panel [facility] demonstrate the following mutation: A mutation in ASXL1 is identified of unclear significance. 06/12/2024 11:59 AM EDT [facility] Clinical History CONSULT REQUESTED 06/12/2024 11:59 AM EDT [facility] Performing Lab Diagnostic interpretation performed at: [facility], [address] [place] [address], [place] [address] CLIA# [id number] [employer] Specialist: Derick Meadows MD 06/12/2024 11:59 AM EDT [facility] Disclaimer Laboratory Developed Test (LDT) Disclaimer: Performance characteristics of immunohistochemica l, immunofluorescent, and chromogenic in-situ hybridization tests have been determined by the performing laboratory within [facility]'s [facility] Pathology and Laboratory Medicine Department ([facility], [facility], [facility], [facility], [facility], [facility], or [facility]) in a manner consistent with CLIA requirements. One or more of these tests may not have been cleared or approved by the FDA. RT-PLM is regulated under CLIA as qualified to perform high-complexity testing. These tests are used for clinical purposes. These should not be regarded as investigational or for research. Positive and negative controls stain appropriately. 06/12/2024 11:59 AM EDT [facility] Blocks or Slides MICROSCOPE SLIDE / Unknown 05/31/2024 9:19 PM EDT 05/31/2024 9:20 PM EDT us Jessica Hope MD SURGICAL PATHOLOGY Final Resul t [facility] [address] [place] [address], from Last 3 Months Insurance [facility] [employer] MEDICAID [facility] Care Teams Nitrogen Operator Relationship Specialty Start Date End Date Lynda Manuel CNP [address] [facility] [place] [address] PCP - General Family Medicine 06/14/24 Carolina Munguia APRN [address] [facility] [address] [facility] [place] [address] 12/04/23 Jessica Hope MD [address] [place] [address] Referring Hematology/Oncology 06/14/24 Shereen Smallwood PANicolasC [address] [facility] [address] [place] [address] [facility] Referring Orthopedics 06/15/24 [place] [address] [place] [address] Specialty Telehealth Nurse Hematology/Oncology 07/31/24
--- OUTSIDE RECORDS SUMMARY | 2024-08-24 11:13 | XMS_ITS | Encounter Summary ---
Author Organization [facility] Address [address] [place] [address] Care Team Providers Care Hair Sample Matcher Name Role Phone Randy Lu MD Primary Care Provider [phone] Encounter Details Date Type Department Care Team (Late Contact Info) Description 07/13/2023 Abstract [facility] [address] [employer] [address] [place] [address] Nahomy Watson LPN [address] [facility] Padmaja BENITEZ [facility]11 Social History Tobacco Use Types Packs/Day [...] EDT Office Visit [facility] [address] [employer] [address] [place] [address] Evan Thompson [facility] [address] [place], [place] [id number] documented as of this encounter Visit Diagnoses Not on filedocumented in this encounter Care Teams Hair Sample Matcher Relationship Specialty Start Date End Date Randy Lu MD PCP - General Family Medicine 04/02/23 documented as of this encounter
--- OUTSIDE RECORDS SUMMARY | 2024-08-24 11:13 | XMS_ITS | Encounter Summary ---
Author Organization [facility] Address [address] [place] [address] Care Team Providers Care Commissioner Conservation Of Resources Name Role Phone Randy Lu MD Primary Care Provider [phone] Encounter Details Date Type Department Care Team ([facility] Contact Info) Description 09/09/2023 Abstract [facility] [address] [place] [address] Evan Thompson DO [address] [place], [facility]11 Social History Tobacco Use Types [...] 06/12/2025 10:00 AM EDT Office Visit [facility] [address] [facility] [place] [address] Evan Thompson DO [address] [place], [place] [id number] documented as of this encounter Visit Diagnoses Not on filedocumented in this encounter Care Teams Commissioner Conservation Of Resources Relationship Specialty Start Date End Date Randy Lu MD PCP - General Family Medicine 04/02/23 documented as of this encounter
--- OUTSIDE RECORDS SUMMARY | 2024-08-24 11:13 | XMS_ITS | Encounter Summary ---
Author Organization [facility] [employer] Address [id number] [address] [place] [address] Care Team Providers Care Court Supervisor Name Role Phone Amy Collier BUSINESS SYSTEM MANAGER-BOOKING PRIZER Primary Care Provider + Encounter Details Date Type Department Care Team (Late st Contact Info) Description 04/21/2023 Orders Only [facility] [address] [facility] [address] [place] [phone] Ref Prov, [place] [address] Social History Tobacco Use Types Packs/Day Years [...] often do you attend chur ch or sabianism services? More than 4 times per year [...] Answer Date Recorded Total Score 0 03/07/2022 [facility] - [...] Description 08/29/2024 9:30 AM EDT Office Visit [facility] [address] [facility] [address] [place] [phone] Shereen Smallwood PANicolasC [address] [facility] [address] [place] [phone] 10/26/2024 8:30 AM EDT Telephone Visit [facility] Oncology, A Department of [place] [address] [facility] [address] [place] [phone] [place] [address] [place] [address], [address] [place] [address] documented as of this encounter Procedures Procedure Name Priority Date/Time Associated Diagnosis Comments PET CT SKULL TO THIGH Routine 04/17/2023 2:49 PM EST documented in this encounter Results * PET CT skull to thigh (04/17/2023 2:49 PM EST) Anatomical Region Laterality Modality Nuc Med N/A Positron Emissio n Tomography (PET) us Not In System Ref Prov IMG PET ORDERABLES Final Result documented in this encounter Visit Diagnoses Not on filedocumented in this encounter Additional Health Concerns Assessment Noted Time PHQ-9 Depression Total Score: 0 03/07/19 23 11:14 AM EST documented as of this encounter Care Teams Court Supervisor Relationship Specialty Start Date End Date Amy Collier APRN-BOOKING PRIZER [address] [place] [address] PCP - General 11/28/16 documented as of this encounter
--- OUTSIDE RECORDS SUMMARY | 2024-08-24 11:13 | XMS_ITS | Encounter Summary ---
Author Organization [facility] Address [address] [place] [address] Phone Care Team Providers Care Uniform Maker Name Role Phone Randy Lu DO Primary Care Provider Encounter Details Date Type Department Care Team (Late st Contact Info) Description 09/20/2021 Orders Only [facility] [address] [place] [address] Conversion, Onbase Social History Tobacco Use Types Packs/Day Years Used Date Smoking Tobacco: Never Assessed Comments Unknown Sex and Gender Information Value Date Recorded Sex Assigned at Not on file Legal Sex Female 9:53 AM EST Gender Identity Not on file Sexual Orientation Not on file documented as of this encounter Plan of Treatment Scheduled Orders Name Type Priority Associated Diagnoses Orde r Schedule OUTSIDE LAB SCAN Lab Ordered: 09/20/2021 documented as of this encounter Visit Diagnoses Not on filedocumented in this encounter Care Teams Uniform Maker Relationship Specialty Start Date End Date Randy Lu DO PCP - General 07/21/22 documented as of this encounter
--- OUTSIDE RECORDS SUMMARY | 2024-08-24 11:13 | XMS_ITS | Encounter Summary ---
Author Organization [facility] Address [facility]-[id number] [address] [place] [address] Care Team Providers Care Local Coordinator Name Role Phone Amy Collier MACHINE QUILT STUFFER-PADDER CUSHION Primary Care Provider + Encounter Details Date Type Department Care Team (Late st Contact Info) Description 03/26/2023 Orders Only [facility] Internal [facility] - Family Medicine [address] [place] [phone] Amy Collier APRN-PADDER CUSHION [address] [place] [address] Social History Tobacco Use Types Packs/Day Years [...] often do you attend chur ch or taoist services? More than 4 times per year 02/27/2022 Do you belong to any clubs o r organizations such as mosque groups, unions, fraternal or athletic groups, or [...] Answer Date Recorded Total Score 0 03/07/2022 [facility] [place] of Occupat ional Health - Occupational Stress [...] Description 08/29/2024 9:30 AM EDT Office Visit [facility] Physicians Plastic and Reconstructive Surgery [address] [place] [address] [address] [place] [phone] Shereen Smallwood PA-C 5308 [facility] [address] [place] [address] 10/26/2024 8:30 AM EDT Telephone Visit [facility] Gynecology Oncology, A Department of [address] [place] [address] [place] [address] [place] [address], [address] [place] [address] documented as of this encounter Procedures Procedure Name Priority Date/Time Associated Diagnosis Comments H-US BREAST RT COMPLETE Routine 03/26/2023 1:52 PM EST documented in this encounter Results * Ultrasound breast complete right (03/26/2023 1:52 PM EST) Anatomical Region Laterality Modality Breast Right Ultrasound us Amy LINDQUIST IMG US ORDERABLES Final Result documented in this encounter Visit Diagnoses Not on filedocumented in this encounter Additional Health Concerns Assessment Noted Time PHQ-9 Depression Total Score: 0 03/07/19 23 11:14 AM EST documented as of this encounter Care Teams Local Coordinator Relationship Specialty Start Date End Date Amy Collier APRN-CNP [address] [place], [place] [address]di[place] [address] PCP - General 11/28/16 documented as of this encounter
--- OUTSIDE RECORDS SUMMARY | 2024-08-24 11:13 | XMS_ITS | Encounter Summary ---
Author Organization [facility] Address [facility]-[id number] [address] [place] [address] Care Team Providers Care Global Director Air And Climate Change Name Role Phone Amy Collier WEB MARKETING COORDINATOR-REEL CUTTER Primary Care Provider + Encounter Details Date Type Department Care Team (Late st Contact Info) Description 03/30/2023 Orders Only [facility] Internal Medicine - Family Medicine [address] [place] [phone] Amy Collier APRN-REEL CUTTER [address] [place] [address] Social History Tobacco Use Types Packs/Day Years [...] often do you attend chur ch or confucianist services? More than 4 times per year [...] Answer Date Recorded Total Score 0 03/07/2022 [facility] [place] of Occupat ional Health - Occupational [...] as of this encounter Progress Notes * Nat Javed CMA - 03/30/2023 5:01 PM EST I spoke with the patient to let her know that I called [place] and they did not see the results yet but they are going to call their Pathology person and see if they are ready yet and they will get back with me. Patient is ok with that. documented in this encounter Plan of Treatment Upcoming Encounters Date Type Department Care Team (Late st Contact Info) Description 08/29/2024 9:30 AM EDT Office Visit [facility] Physicians Plastic and Reconstructive Surgery [address] [place] [address] [address] [place] [phone] Shereen Smallwood, DAYTONC 5308 [facility], [address] [place] [address] 10/26/2024 8:30 AM EDT Telephone Visit [facility] Gynecology Oncology, A Department of [facility] 5308 [facility] [address] [place] [phone] [place] [address] [place] [address], [address] [place] [address] documented as of this encounter Visit Diagnoses Not on filedocumented in this encounter Additional Health Concerns Assessment Noted Time PHQ-9 Depression Total Score: 0 03/07/19 23 11:14 AM EST documented as of this encounter Care Teams Global Director Air And Climate Change Relationship Specialty Start Date End Date Amy Collier, WEB MARKETING COORDINATOR-REEL CUTTER [address] [place] [address] PCP - General 11/28/16 documented as of this encounter
--- OUTSIDE RECORDS SUMMARY | 2024-08-24 11:13 | XMS_ITS | Encounter Summary ---
Author [facility] Address [facility]-[id number] [address] [place] [address] Care Team Providers Care Commercial Housekeeper Name Role Phone Amy Collier ENVELOPE ADJUSTER-MINE UTILITY OPERATOR Primary Care Provider + Encounter Details Date Type Department Care Team (Late st Contact Info) Description 04/23/2023 Orders Only [facility] Internal [facility] - Family Medicine [address] [place] [address] External, Scanning Provider Social History [...] How often do you attend chur or zoroastrianism services? More than 4 times per year [...] Answer Date Recorded Total Score 0 03/07/2022 [facility] of Occupat ional Health - Occupational [...] Recorded Do you need help finding a [facility] career center and/or a training [...] AM EDT [facility] 5308 [facility] [address] [place] [address] Shereen Smallwood PA-C 5308 [facility], [facility] [address] [place] [address] 10/26/2024 8:30 AM EDT [facility], A Department of [address] [place] [address] Raymond Sepulveda MD [address] [place] [address], [address] [place] [address] documented as of this encounter Procedures Procedure Name Priority Date/Time Associated Diagnosis Comments PET CT SKULL TO THIGH Routine 04/17/2023 4:15 PM EST documented in this encounter Results * PET CT skull to thigh (04/17/2023 4:15 PM EST) Anatomical Region Laterality Modality Nuc Med N/A Positron Emissio n Tomography (PET) us Scanning Provider External IMG PET ORDERABLES Fi nal Result documented in this encounter Visit Diagnoses Not on filedocumented in this encounter Additional Health Concerns Assessment Noted Time PHQ-9 Depression Total Score: 0 03/07/19 23 11:14 AM EST documented as of this encounter Care Teams Commercial Housekeeper Relationship Specialty Start Date End Date Amy Collier, ENVELOPE ADJUSTER-MINE UTILITY OPERATOR [address] [place] [address] PCP - General 11/28/16 documented as of this encounter
--- OUTSIDE RECORDS SUMMARY | 2024-08-24 11:13 | XMS_ITS | Encounter Summary ---
Author Organization [facility] Address [facility][id number] [address] [place] [address] Care Team Providers Care Scissors Sharpener Name Role Phone Amy Collier VISUALIZER-COMMUNITY CULTURAL DEVELOPMENT OFFICER Primary Care Provider + Encounter Details Date Type Department Care Team (Late st Contact Info) Description 03/10/2023 Orders Only [facility] Internal Medicine - Family Medicine [address] [place] [phone] Amy Collier APRN-COMMUNITY CULTURAL DEVELOPMENT OFFICER [address] [place] [address] Abnormal mammogram of right breast Social History [...] often do you attend chur ch or quaker services? More than 4 times per year 02/27/2022 Do you belong to any clubs o r organizations such as restoration groups, unions, fraternal or athletic groups, or [...] Answer Date Recorded Total Score 0 03/07/2022 [facility] of Occupat ional Health - Occupational Stress [...] Office Visit [facility] Physicians Plastic and Reconstructive Surgery [address] [place] [address] [address] [place] [address] Shereen Smallwood PA-C 5308 [facility] [address] [place] [address] 10/26/2024 8:30 AM EDT Telephone Visit [facility] Gynecology Oncology, A Department of [address] [place] [address] [place] [address] [place] [address], [address] [place] [address] documented as of this encounter Procedures Procedure Name Priority Date/Time Associated Diagnosis Comments MAMM DIAGNOSTIC UNILAT RT W CAD Routine 03/06/2023 Abnormal mammogram of right breast documented in this encounter Results * Mammography diagnostic unilateral right with CAD (03/06/2023) Anatomical Region Laterality Modality Breast Right Mammography Amy LINDQUIST IMG MAMMOGRAPHY ORDERABL ES Final Result documented in this encounter Visit Diagnoses Diagnosis Abnormal mammogram of right breast documented in this encounter Additional Health Concerns Assessment Noted Time PHQ-9 Depression Total Score: 0 03/07/19 23 11:14 AM EST documented as of this encounter Care Teams Scissors Sharpener Relationship Specialty Start Date End Date Amy Collier APRN-CNP [address] [place] [address] PCP - General 11/28/16 documented as of this encounter
--- OUTSIDE RECORDS SUMMARY | 2024-08-24 11:13 | XMS_ITS | Encounter Summary ---
Author Organization [employer] Sys tem Address [facility] [place][id number] [address] [place] [address] Care Team Providers Care Scouring Train Operator Name Role Phone Amy Collier SOLE TACKER-HOSPICE RN Primary Care Provider + Encounter Details Date Type Department Care Team (Late st Contact Info) Description 10/27/2023 Orders Only [facility] Surgical Oncology 5308 [facility] [address] [place] [address] Ref Prov, [place] [address] Social History Tobacco Use Types Packs/Day Years Used Date Smoking Tobacco: Never Smokeless Tobacco: Never Alcohol Use Standard Drinks/Week Comments Yes 0 (1 standard drink = 0.6 oz pur e alcohol) Socially [facility] Utilities Answer Date Recorded In the past 12 months has [employer] electric, gas, oil, or water company threatened [...] Answer Date Recorded Total Score 0 03/07/2022 [facility] [place] of Occupat ional Health - Occupational Stress [...] Description 08/29/2024 9:30 AM EDT Office Visit [facility] Physicians Plastic and Reconstructive Surgery [address] [place], [place] [address] [address] [place] [address] Shereen Smallwood PA-C 5308 [facility] [address] [place] [address] 10/26/2024 8:30 AM EDT Telephone Visit [facility] Gynecology Oncology, A Department of [address] [facility] [address] [place] [address] Raymond Sepulveda MD 5308 [facility], [address] [place] [address] documented as of this encounter Procedures Procedure Name Priority Date/Time Associated Diagnosis Comments MULTIPLE LABS Routine 10/27/2023 10:43 AM EDT documented in this encounter Results * Multiple labs (10/27/2023 10:43 AM EDT) us Not In System Ref Prov TN IMAGING Final Res ult MANUALLY TRANSCRIBED RESULTS documented in this encounter Visit Diagnoses Not on filedocumented in this encounter Additional Health Concerns Assessment Noted Time PHQ-9 Depression Total Score: 0 03/07/19 23 11:14 AM EST documented as of this encounter Care Teams Scouring Train Operator Relationship Specialty Start Date End Date Amy Collier, SOLE TACKER-HOSPICE RN [address] [place] [address] PCP - General 11/28/16 documented as of this encounter
--- OUTSIDE RECORDS SUMMARY | 2024-08-24 11:13 | XMS_ITS | Encounter Summary ---
Author Organization [facility] Address [facility]-[id number] [address] [place] [address] Care Team Providers Care Blasting Cap Assembler Name Role Phone Amy Collier ORTHOPEDIC RADIOLOGIC TECHNOLOGIST-CALL CIRCUIT WORKER Primary Care Provider + Encounter Details Date Type Department Care Team (Late st Contact Info) Description 09/01/2023 Orders Only [facility] Internal Medicine - Family Medicine [address] [place] [phone] Ref Prov, [place] [address] Social History Tobacco Use Types Packs/Day Years [...] How often do you attend chur or restorationism services? More than 4 times per year 02/27/2022 Do you belong to any clubs o r organizations such as yarsanism groups, unions, fraternal or athletic groups, or [...] Answer Date Recorded Total Score 0 03/07/2022 [facility] of Occupat ional Health - Occupational [...] Recorded Do you need help finding a [facility] career center and/or a training program? [...] as of this encounter Progress Notes * AMEENA Garcia - 09/01/2023 9:38 AM EDT Ultrasound results reviewed, patient is in the care of specialist, oncology AMEENA Garcia 09/01/23 1044 documented in this encounter Plan of Treatment Upcoming Encounters Date Type Department Care Team (Late st Contact Info) Description 08/29/2024 9:30 AM EDT Office Visit [facility] Physicians Plastic and Reconstructive Surgery [address] [facility] [address] [place] [address] Shereen Smallwood, PA-C [address], [address] [place] [address] 10/26/2024 8:30 AM EDT [facility]phone [facility], A Department of [place] [address] [facility] [address] [place] [address] [place] [address] [place] [address], [address] [place], [place] [address] documented as of this encounter Procedures Procedure Name Priority Date/Time Associated Diagnosis Comments US BREAST RT LIMITED Routine 03/26/2023 9:38 AM EST documented in this encounter Results * Ultrasound breast limited right (03/26/2023 9:38 AM EST) Anatomical Region Laterality Modality Breast Right Ultrasound us Not In System Ref Prov IMG US ORDERABLES Final R esult documented in this encounter Visit Diagnoses Not on filedocumented in this encounter Additional Health Concerns Assessment Noted Time PHQ-9 Depression Total Score: 0 03/07/19 11:14 AM EST documented as of this encounter Care Teams Blasting Cap Assembler Relationship Specialty Start Date End Date Amy Collier, ORTHOPEDIC RADIOLOGIC TECHNOLOGIST-CALL CIRCUIT WORKER [address] [place] [address] PCP - General 11/28/16 documented as of this encounter
--- OUTSIDE RECORDS SUMMARY | 2024-08-24 11:13 | XMS_ITS | Encounter Summary ---
Author Organization [facility] tem Address [facility]-[id number] [address] [place] [address] Care Team Providers Care Bag Printer Name Role Phone Amy Collier DROP WIRE ALINER-CARGO SURVEYOR Primary Care Provider + Encounter Details Date Type Department Care Team (Late st Contact Info) Description 05/02/2024 Orders Only [facility] Division [facility] [address] [place] [address] Rossy Ng RN Social History Tobacco Use Types Packs/Day Years Used Date Smoking Tobacco: Never Passive Smoke Exposure: Past Smokeless Tobacco: Never Alcohol Use Standard Drinks/Week Comments Yes 0 (1 standard drink = 0.6 oz pur e alcohol) Socially [employer] Utilities Answer Date Recorded In the past [...] often do you attend chur ch or jewish services? More than 4 times per year 02/27/2022 Do you belong to any clubs o r organizations such as religious groups, unions, fraternal or athletic groups, or [...] Answer Date Recorded Total Score 2 03/30/2024 [facility] of Occupat ional Health - Occupational Stress [...] got money to buy more. Never True 05/03/2024 Within the past 12 months th e food we bought just didn't last and we didn't have money to get more. Never True 05/03/2024 Purpose - Life Answer Date Recorded I [...] Description 08/29/2024 9:30 AM EDT Office Visit [facility] Physicians Plastic and Reconstructive Surgery [address] [place] [address] [address] [place] [address] Shereen Smallwood, PANicolasC [address] [place] [address], [facility] [address] [place] [address] 10/26/2024 8:30 AM EDT Telephone Visit [facility] Gynecology Oncology, A Department of [address] [place] [address] [place] [address] [place] [address], [address] [place], [place] [address] documented as of this encounter Goals Goal Patient Goal Type Associated Problems Recent Progress Patient-Stated? Author return home General Yes Mariah Gonsalez, RN Note: Evaluation of progress towards goal: progressing, patient will return home at discharge/follow up [facility] W[facility] care [facility] documented as of this encounter Visit Diagnoses Not on filedocumented in this encounter Additional Health Concerns Assessment Noted Time PHQ-9 Depression Total Score: 2 03/30/19 25 3:58 PM EST documented as of this encounter Care Teams Bag Printer Relationship Specialty Start Date End Date Amy Collier, DROP WIRE ALINER-CARGO SURVEYOR [facility] [place] [address] PCP - General 11/28/16 documented as of this encounter
--- OUTSIDE RECORDS SUMMARY | 2024-08-24 11:14 | XMS_ITS | Encounter Summary ---
Author Organization [employer] Address [facility]-[id number] [address] [place] [address] Care Team Providers Care Public Health Nurse Name Role Phone Amy Collier DYE RANGE TENDER-RAND TACKER Primary Care Provider + Reason for Visit * Reason Comments Med Refill Encounter Details Date Type Department Care Team (Late st Contact Info) Description 06/04/2022 Refill [facility] Internal Medicine - Family Medicine [address] [place] [phone] Lynda Manuel, DYE RANGE TENDER-MC KAY MACHINE OPERATOR [address] [facility] [place] [address] Social History Tobacco Use Types Packs/Day Years [...] often do you attend chur ch or alevism services? More than 4 times per year [...] Answer Date Recorded Total Score 0 03/07/2022 [facility] of Occupat ional Health - Occupational Stress [...] 08/29/2024 9:30 AM EDT Office Visit [facility] Physicians Plastic and Reconstructive Surgery [address] [facility] [address] [place] [address] Shereen Smallwood, PA-C 5308 [facility], [facility] [address] [place] [address] 10/26/2024 8:30 AM EDT Telephone Visit [facility] Gynecology Oncology, A Department of [place] [address] [facility] [address] [place] [address] Raymond Sepulveda MD [address] [facility], [address] [place], [place] [address] documented as of this encounter Visit Diagnoses Not on filedocumented in this encounter Additional Health Concerns Assessment Noted Time PHQ-9 Depression Total Score: 0 03/07/19 23 11:14 AM EST documented as of this encounter Care Teams Public Health Nurse Relationship Specialty Start Date End Date Amy Collier, ROBER-RAND TACKER [address] [place] [address] PCP - General 11/28/16 documented as of this encounter
--- OUTSIDE RECORDS SUMMARY | 2024-08-24 11:14 | XMS_ITS | Encounter Summary ---
Author Organization [employer] Address [facility]-[id number] [address] [place] [address] Care Team Providers Care Correction Officer Penitentiary Name Role Phone Amy Collier WEAVING SUPERVISOR-LIVE IN COMPANION Primary Care Provider + Encounter Details Date Type Department Care Team (Late st Contact Info) Description 08/24/2024 Telephone [facility] Internal Medicine - Family Medicine [address] [place] [address] Kodi Monteiro CMA Social History Tobacco Use Types Packs/Day Years Used Date Smoking Tobacco: Never Passive Smoke Exposure: Past Smokeless Tobacco: Never Alcohol Use Standard Drinks/Week Comments Not Currently 0 (1 standard drink = 0.6 oz pur e alcohol) [facility] Utilities Answer Date Recorded In the past 12 months has [employer] electric, gas, oil, or water company threatened [...] any clubs o r organizations such as druze groups, unions, fraternal or athletic groups, or [...] Answer Date Recorded Total Score 0 08/10/2024 [facility] [place] of Occupat ional Health - Occupational Stress [...] Telephone Encounter - Kodi Monteiro CMA - 08/24/2024 8:[address] No Urena Pharmacist at [facility] called and would like to have a discussion about this pt. Her Lab results indicate some medications need to be addressed. Her Phone number to talk directly to her is [phone] documented in this encounter Plan of Treatment Upcoming Encounters Date Type Department Care Team (Late st Contact Info) Description 08/29/2024 9:30 AM EDT Office Visit [facility] Physicians Plastic and Reconstructive Surgery [address] [address] [place] [address] Shereen Smallwood PA-C 5308 [facility] , [facility] [address] [place] [address] 10/26/2024 8:30 AM EDT Telephone Visit [facility] Gynecology Oncology, A Department of [facility] [address] [place] [address] Raymond Sepulveda MD 5308 [facility], [address] [place] [address] documented as of this encounter Goals Goal Patient Goal Type Associated Problems Recent Progress Patient-Stated? 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
--- OUTSIDE RECORDS SUMMARY | 2024-08-24 11:14 | XMS_ITS | Clinical Summary ---
Author Organization ViSs tem Address [id number] [address] [place] [address] Care Team Providers Care Software Applications Developer Name Role Phone Amy Collier QUALITY ANALYST-INTEGRATED MARKETING MANAGER Primary Care Provider + Allergies Active Allergy Reactions Criticality Noted Date Comments Adhesive Rash Low 11/27/2021 Ceftaroline Fosamil Fever Low 06/11/2024 Daptomycin Flushing Low 11/28/2023 Doxycycline Rash Low 12/09/2023 Meperidine Facial Swelling Medium 04/13/2021 Tigecycline Rash,Vomiting Low 12/07/2023 Vancomycin Other (See Comments) Medium 03/21/2024 Acute Kidney Injury Medications cyclobenzaprin e (FLEXERIL) 10 mg tablet TAKE ONE TABLET BY MOUTH ONCE DAILY IN THE EVENING 30 tablet 11 04/28/19 24 Active Additional Information Patient not taking.Reported on 08/12/2024 ELIQUIS 5 mg tabletIndicati ons:deep venous thrombosis Take 1 tablet (5 mg total) by mouth in the morning and 1 tablet (5 mg total) before bedtime. Indications: blood clot in a deep vein of the extremities. Blood clot left leg 08/2023. 09/18/19 24 Active magnesium oxide 400 mg magnesium tabletIndicati ons:hypomagnes emia Take 400 mg by mouth in the morning. Indications: low amount of magnesium in the blood. Active potassium chloride (KLOR-CON ORAL)Indicatio ns:hypokalemia Take 20 mEq by mouth in the morning and 20 mEq before bedtime. Indications: low amount of potassium in the blood. 08/05/19 24 Active cyanocobalamin 1000 MCG tablet Take 1 tablet (1,000 mcg total) by mouth in the morning. 90 tablet 3 10/10/20 24 Active CLOFAZIMINE, BULK, MISC Take 100 mg by mouth in the morning. Capsule for mycobacterial infection. Active pyridoxine, vitamin B6, (B-6) 50 mg tablet Take 1 tablet (50 mg total) by mouth in the morning. 03/28/19 Active gabapentin (NEURONTIN) 300 mg capsuleIndicat ions:neuropath ic pain Take 1 capsule (300 mg total) by mouth in the morning and at bedtime Indications: neuropathic pain. Active prochlorperazi ne (COMPAZINE) 10 mg tablet 04/25/19 Active hydrOXYzine (ATARAX) 25 mg tablet Take 1 tablet (25 mg total) by mouth 3 (three) times a day as needed for itching. 60 tablet 1 05/13/19 Active Additional Information Patient not taking.Reported on 08/12/2024 omadacycline 150 mg tablet Take 300 mg by mouth in the morning. Active naloxone (NARCAN) 4 mg/actuation spray,non-aero yuliet nasal spray Administer 1 spray (4 mg total) into alternating nostrils as needed for opioid reversal. 1 each 06/16/19 Active spironolactone (ALDACTONE) 25 mg tablet Take 1 tablet (25 mg total) by mouth in the morning. 90 tablet 1 07/15/19 Active Additional Information Patient taking differently:25 mg oral Daily, Morning,Indications: hypertension, Reported on 08/12/2024 carvediloL (COREG) 12.5 mg tablet Take 1 tablet (12.5 mg total) by mouth in the morning and 1 tablet (12.5 mg total) before bedtime. 180 tablet 1 07/15/19 Active amikacin (AMIKIN) 500 mg/2 mL injection Infuse 3.6 mL (900 mg total) into a venous catheter 3 (three) times a week. 07/15/19 25 Active acetaminophen (TYLENOL) 325 mg tablet Take 2 tablets (650 mg total) by mouth every 6 (six) hours. 30 tablet 07/30/19 25 Active docusate sodium (COLACE) 100 mg capsule Take 2 capsules (200 mg total) by mouth daily as needed for constipation. 07/30/19 25 Active FeroSuL 325 mg (65 mg iron) tablet in the morning and in the evening. Take with meals. 06/11/20 25 Active capecitabine (XELODA) 500 mg chemo tablet Take 3 tablets by mouth 2 (two) times a day 08/04/19 25 Active imipenem-cilas tatin (PRIMAXIN) 500 mg injection 08/05/19 25 Active acetic acid 0.25 % irrigation Irrigate with 1,000 mL as directed in the morning. BID dressing changes with acetic acid dampened kerlix, lay into wound, cover with ABD pads, secure with ATTILA. 500 mL 5 08/19/19 25 Active anastrozole (ARIMIDEX) 1 mg chemo tablet Take 1 tablet by mouth daily Breast cancer 01/08/20 24 025 Discontinu ed(Stop Taking at Discharge) VERZENIO 150 mg chemo tabletIndicati ons:Breast wound, left, sequela Take 1 tablet by mouth 2 (two) times a day Holding currently as of 05/12/2024 05/13/19 25 025 Discontinu ed(Stop Taking at Discharge) imipenem-cilas tatin 1,000 mg in sodium chloride 0.9 % 250 mL IVPB Infuse 1,000 mg into a venous catheter every 12 (twelve) hours for 90 days. 05/13/19 25 025 diazePAM (VALIUM) 5 mg tabletIndicati ons:Complicate d wound infection,Shaunna st wound, left, sequela Take 1 tablet (5 mg total) by mouth every 6 (six) hours as needed for anxiety or muscle spasms for up to 5 days. 20 tablet 07/30/19 25 025 oxyCODONE (ROXICODONE) 5 mg immediate release tabletIndicati ons:Complicate d wound infection,Shaunna st wound, left, sequela Take 1 tablet (5 mg total) by mouth every 4 (four) hours as needed for pain for up to 7 days. 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 Infection of deep incisional surgical site after procedure 12/04/2023 MIRNA (acute kidney injury) 12/02/2023 Cellulitis of left breast 11/26/2023 S/P breast reconstruction, bilateral 10/28/2023 Malignant neoplasm of lower- inner quadrant of right breast of female, estrogen receptor positive 04/09/2023 Cancer Staging:Clinical:Stage IIIC(cT2, cN3, cM0, G3, ER+, UT-, HER2-) - Signed by Christy He MD on 05/21/2023 Asthma, exercise induced 03/07/2022 Iron deficiency anemia 03/07/2022 Secondary cataract of right eye 01/31/2022 Recurrent UTI 01/31/2022 Arthritis of left knee 11/27/2021 Cardiac arrhythmia 11/27/2021 Overview (11/27/2021): trigeminy Epidermoid cyst of skin 11/27/2021 Internal derangement of right knee 11/27/2021 Palpitations 11/27/2021 Primary osteoarthritis 11/27/2021 Hypertensive kidney disease, stage II 05/24/2021 Chronic hypokalemia 12/23/2019 Hypertension 12/23/2019 Complete tear, knee, anterior cruciate ligament 04/30/2006 Encounters Date Type Department Care Team Description 08/24/2024 Telephone [facility] - Family Medicine [address] [place] [address] Kodi Monteiro [facility] 08/22/2024 Telephone [facility] Plastic and [facility] [address] [facility] [place] [address] Viviane Lopez [facility] 08/18/2024 3:30 PM EDT Office Visit [facility] [address] [facility] [place] [address] Shereen Smallwood PA-C 08/18/2024 Travel 08/12/2024 10:21 AM EDT Anesthesia Event [facility] - Surgery [address] [place] [address] Vaibhav Nicholson MD [place], Noah [facility] 08/12/2024 9:10 AM EDT - 08/12/2024 10:40 AM EDT Surgery [facility] Surgery [address] [place] [address] Jhon Rosado MD DEBRIDEMENT LEFT CHEST WALL WOUND 08/12/2024 6:02 AM EDT - 08/12/2024 12:17 PM EDT Hospital Encounter [facility] Surgery [address] [place] [address] Jhon Rosado MD Discharge Disposition: Home 08/12/2024 Telephone [facility] [address] [facility] [address] [place] [address] Jhon Rosado MD 08/10/2024 3:30 PM EDT Office Visit [facility] - Family Medicine [address] [place] [address] Dhruv Ortiz DO Mycobacterium abscessus infection (Primary Dx); Malignant neoplasm of lower-inner quadrant of right breast of female, estrogen receptor positive ([facility]) 08/10/2024 10:00 AM EDT Support Visit [facility] On [address] [address] 08/09/2024 Telephone [facility] [address] [facility] [address] [facility] [address] Jhon Rosado MD 08/08/2024 9:00 AM EDT Office Visit [facility] [address] [facility] [address] Shereen Smallwood PA-C 08/08/2024 Travel 08/04/2024 Orders Only [facility] [address] [facility] [address] Shereen Smallwood PA-C 08/03/2024 9:00 AM EDT Office Visit [facility] [address] [facility] [address] [facility] [place] [address] Shereen Smallwood PA-C 08/03/2024 Travel 08/02/2024 Telephone [facility] [address] [place] [address] Joelle Betancourt, president [place] [facility] 08/02/2024 Telephone [facility] Internal Medicine - Family Medicine [address] [place] [address] Mela Berrios, OC 08/02/2024 Telephone [facility] [address] [facility] [address] [facility] [place] [address] Viviane Lopez CMA 07/27/2024 2:45 PM EDT - 07/27/2024 4:15 PM EDT Surgery [facility] - Surgery [address] [facility] [place] [place] [address] Jhon Rosado MD DEBRIDEMENT BREAST 07/27/2024 2:38 PM EDT Anesthesia Event [facility] - Surgery [address] [place] [address] Sonal Roberts MD 07/27/2024 12:58 PM EDT - 07/29/2024 3:31 PM EDT Hospital Encounter [facility] - 7 Oncology/Stroke [address] [place] [address] Jhon Rosado MD Complicated wound infection (Primary Dx); Breast wound, left, sequela Discharge Disposition: Home 07/27/2024 8:30 AM EDT Telephone Visit [facility] Gynecology Oncology, A Department of [facility] [address] [facility] [address] [facility] [place] [address] Raymond Sepulveda MD Pelvic mass in female (Primary Dx) 07/27/2024 Travel 07/18/2024 Telephone [facility] [address] [facility] [address] [facility] [address] Jhon Rosado MD 07/15/2024 9:00 AM EDT Support Visit [facility] On [address] [address] 07/14/2024 8:40 AM EDT Office Visit [facility] - Family Medicine [address] [place] [address] Amy Collier, QUALITY ANALYST-INTEGRATED MARKETING MANAGER Malignant neoplasm of lower-inner quadrant of right breast of female, estrogen receptor positive (CMS-HCC) (Primary Dx); Mycobacterium abscessus infection; Essential hypertension; Acute deep vein thrombosis (DVT) of calf muscle vein of left lower extremity (CMS-HCC); S/P right heart catheterization 07/13/2024 Telephone [facility] [address] [facility] [address] [place] [address] Jhon Rosado MD 07/11/2024 2:00 PM EDT Office Visit [facility] [address] [facility] [address] [place] [address] Marisela Davila QUALITY ANALYST-INTEGRATED MARKETING MANAGER Encounter for postoperative care (Primary Dx); Breast wound, left, sequela; S/P breast reconstruction, bilateral; Mycobacterium abscessus infection 07/11/2024 12:24 PM EDT - 07/11/2024 4:12 PM EDT Hospital Encounter [facility] - Interventional Radiology [address] [place] [address] Guillaume Curiel MD Begeman, Garett A, MD Liver lesion Discharge Disposition: Home 07/11/2024 Telephone [facility] [address] [facility] [address] [facility] [place] [address] Marisela Davila QUALITY ANALYST-INTEGRATED MARKETING MANAGER 07/11/2024 Travel 07/06/2024 10:30 AM EDT Office Visit [facility] [address] [facility] [address] [facility] [address] [place] [address] Marisela Davila QUALITY ANALYST-INTEGRATED MARKETING MANAGER Encounter for postoperative care (Primary Dx); Seroma of breast; Breast wound, left, sequela; S/P breast reconstruction, bilateral 07/06/2024 Orders Only [facility] - Interventional Radiology [address] [place] [address] Guillaume Curiel MD Liver lesion (Primary Dx) 07/06/2024 Travel 06/29/2024 2:00 PM EDT Office Visit [facility] [address] [facility] [address] [facility] [place] [address] Marisela Davila QUALITY ANALYST-INTEGRATED MARKETING MANAGER Encounter for postoperative care (Primary Dx); Seroma of breast; Breast wound, left, sequela; Mycobacterium abscessus infection; S/P breast reconstruction, bilateral 06/29/2024 8:30 AM EDT Telephone Visit [facility] Gynecology Oncology, A Department [facility] [address] [facility] [address] [facility] [place] [address] Raymond Sepulveda MD Pelvic mass in female (Primary Dx) 06/29/2024 Travel 06/24/2024 Telephone [facility] [address] [facility] [address] [place] [address] Viviane Lopez [facility] 06/23/2024 Telephone [facility] [address] [facility] [address] [facility] [place] [address] Viviane Lopez [facility] 06/22/2024 3:00 PM EDT Office Visit [facility] [address] [facility] [address] [facility] [place] [address] Marisela Davila QUALITY ANALYST-INTEGRATED MARKETING MANAGER Encounter for postoperative care (Primary Dx); Breast wound, left, sequela 06/22/2024 Travel 06/20/2024 Telephone [facility] [address] [facility] [place] [address] Viviane Lopez, [facility] 06/20/2024 Telephone [facility] Internal Medicine - Family Medicine [address] [place] [address] Kodi Monteiro, [facility] 06/16/2024 Telephone [facility] Internal Medicine - Family Medicine [address] [place] [address] Noreen Bro, OC Care Navigation 06/16/2024 Orders Only [facility] - Interventional Radiology [address] [place] [address] Guillaume Curiel MD Liver lesion (Primary Dx) 06/13/2024 5:20 PM EDT Anesthesia Event [facility] - Surgery [address] [place] [address] Emmanuelle Lara MD Wilcox, Brandon L, QUALITY ANALYST-COOK RESTAURANT 06/13/2024 4:45 PM EDT - 06/13/2024 7:25 PM EDT Surgery [facility] - Surgery [address] [place] [address] Jhon Rosado MD INCISION DRAINAGE CHEST WALL INFECTION 06/13/2024 Orders Only [facility] [address] [place] [phone] Transcribe, Orders Support User Pain (Primary Dx) 06/13/2024 Orders Only [facility] Internal Medicine - Family Medicine [address] [place] [address] Ref Prov, Not In System 06/12/2024 Orders Only [facility] [address] [place] [phone] Transcribe, Orders Support User Pain (Primary Dx) 06/10/2024 11:16 PM EDT - 06/15/2024 6:22 PM EDT Hospital Encounter [facility] - 7 Oncology/Stroke [address] [place] [address] Meme Baumann, Luna Jaeger MD Wang, Li, MD Pothireddy, Ravi P, MD Complicated wound infection (Primary Dx); Breast wound, left, sequela; S/P breast reconstruction, left; Mycobacterium abscessus infection Discharge Disposition: Home 06/10/2024 Travel 06/10/2024 Telephone [facility] Call Center [address] [place] [address] Kendra Lewis Breast Problem 06/08/2024 11:30 AM EDT Office Visit [facility] [address] [place] [address] Mariann Lombardo PA-C Encounter for postoperative care (Primary Dx); Breast wound, left, sequela; Erythema of breast; Seroma of breast; Mycobacterium abscessus infection; S/P breast reconstruction, bilateral; Acquired absence of breast, bilateral; History of breast cancer 06/08/2024 8:30 AM EDT Telephone Visit [facility], A [facility] [address] [place] [address] Raymond Sepulveda MD Malignant neoplasm of lower-inner quadrant of right breast of female, estrogen receptor positive ([facility]) (Primary Dx); Pelvic mass in female 06/08/2024 Travel 06/03/2024 11:05 AM EDT Ancillary Procedure [facility] [address] [place] [address] Pain 06/03/2024 Orders Only [facility] Internal Medicine - Family Medicine [address] [place] [address] Ref Prov, Not In System 06/01/2024 9:00 AM EDT Office Visit [facility] [address] [place] [address] Marisela Davila, QUALITY ANALYST-INTEGRATED MARKETING MANAGER Encounter for postoperative care (Primary Dx); Breast wound, left, sequela; Seroma of breast; Mycobacterium abscessus infection; S/P breast reconstruction, bilateral 06/01/2024 Telephone [facility] [address] [place] [address] Marisela Davila, QUALITY ANALYST-INTEGRATED MARKETING MANAGER 06/01/2024 Travel 05/27/2024 Orders Only [facility] Internal Medicine - Family Medicine [address] [place] [address] Ref Prov, Not In System 05/25/2024 Telephone [facility] [address] [place] [address] Shereen Smallwood PA-C 05/24/2024 Orders Only [facility] Internal Medicine - Family Medicine [address] [place] [address] Ref Prov, Not In System from Last 3 Months Immunizations Immunization Administration Dates Next Due COVID-19, mRNA, LNP-S, PF, 30mcg/0.3mL Dose 12/06/2020 Covid-19, Mrna, Lnp-s, Pf, 3 0 Mcg/0.3 Ml Dose, Winston-sucrose 12/06/2020 H1N1 Inj Preservative Free 01/17/2009 Influenza Nasal, Unspecified Formulation 12/01/2015 Influenza, Im Trivalent Preservative ,12/13/2018,12/06/2014,2012 Influenza, Injectable, Quadrivalent 11/30,01/19/2017,01/07/2016,2014,01/05/2014 Influenza, Unspecified 11/20/2019,2018,12/10/2017,2016,01/07/2016,12/01/2015,12/27/2014,1 03/07/2013,12/29/2012 SARS-COV-2 (COVID-19) Vaccin e, Unspecified 12/06/2020 Tdap 07/07/2017 Social History Tobacco Use Types Packs/Day Years Used Date Smoking Tobacco: Never Passive Smoke Exposure: Past Smokeless Tobacco: Never Tobacco Cessation:Counseling Given: Not Answered Alcohol Use Standard Drinks/Week Comments Not Currently 0 (1 standard drink = 0.6 oz pur e alcohol) [facility] Utilities Answer Date Recorded In the past [...] often do you attend chur ch or sikh services? More than 4 times per year 02/27/2022 Do you belong to any clubs o r organizations such as confucianism groups, unions, fraternal or athletic groups, or [...] Answer Date Recorded Total Score 0 08/10/2024 [facility] of Occupat ional Health - Occupational Stress [...] Recorded Do you need help finding a [employer] [place] center and/or a training program? No 02/27/2022 [...] 16 08/18/2024 3:41 PM EDT Oxygen Saturation 100% 08/12/2024 12: 00 PM EDT Inhaled Oxygen Concentration - - Weight 88.8 kg (195 lb 12.3 oz) 08/12/2024 7:01 AM EDT Height 177.8 cm (5' 10 ) 08/12/2024 7:01 AM EDT Body Mass Index 28.09 08/12/2024 7:01 AM EDT Plan of Treatment Upcoming Encounters Date Type Department Care Team (Late st Contact Info) Description 08/29/2024 9:30 AM EDT [facility] [address] [place] [address] Shereen Smallwood, PA-C [address], [facility] [address] [place] [address] 10/26/2024 8:30 AM EDT [facility], A Department of [place] [address] [facility] [address] [place] [address] [place] [address] [place] [address], [address] [place] [address] Health Maintenance Due Date Last Done Comments Adult BMI Follow Up Plan 1988 Zoster (Shingles) Vaccine (1 of 2) 1989 COVID-19 Vaccine ( - 2023-2 5 season) 2023 12/06/2020, 12/06/2020, 12/06/2020, Additional history exists Influenza Vaccine 10/31/2024 11/20/2019, , 12/13/2018, Additional history exists Depression Screening 08/10/2025 08/10/2024 Adult BMI Screening 08/12/2025 08/12/2024 Tobacco Screening 08/18/2025 08/18/2024 DTaP,Tdap and Td Vaccines (2 - Td or Tdap) 07/08/2027 07/07/2017 Pap Smear Discontinued 06/01/2024, 04/0 03/2023, 12/27/2021 Goals Goal Patient Goal Type Associated Problems Recent Progress Patient-Stated? Author return home General Yes Mariah Gonsalez, OC Note: Evaluation of progress towards goal: progressing, patient will return home at discharge/follow up [facility] Wound care clinic Autogenerated Goal Care Plan Autogenerated Problem No Skyla Marie Medical Devices Implanted Type Area Life Insurance Salesperson Device Identifier Shelf Expiration Date Model / Serial / Lot Chemical Librarian Tiss [id number] Brst 480-575cc Txtr Intgr Port Allox2 - [id number] - [id number] Implanted:Qty: 1 on 10/28/2023 by Jhon Rosado MD at [facility] Other Implant Left: Breast [employer] 11/11/2025 ALLOX2-FH 14E / [id number] / NA Chemical Librarian Tiss [id number] Brst 480-575cc Txtr Intgr Port Allox2 - [id number] - [id number] Implanted:Qty: 1 on 10/28/2023 by Christy He MD at [facility] Other Implant Right: Breast [employer] 11/20/2025 ALLOX2-FH 14E / [id number] / NA Procedures Procedure Name Priority Date/Time Associated Diagnosis Comments TISSUE CULTURE Routine 08/12/2024 10:40 AM EDT FUNGAL CULTURE INCLUDES FUNGAL SMEAR Routine 08/12/2024 10:40 AM EDT ANAEROBIC CULTURE Routine 08/12/2024 10: 40 AM EDT DEBRIDEMENT BREAST 08/12/2024 10 :21 AM EDT LEFT AXILLA WOUND Case Notes (EPIC 53) REQ 30 WORKING-RAJNI, GAVE 60 WORKING- SEND OUT TEST Routine 08/11/2024 3:03 PM EDT EXTERNAL LAB ORDERS / RESULTS Routine 08/08/2024 3:30 PM EDT MOSES GENERIC ORDER Routine 07/29/2024 2: 53 PM EDT AMIKACIN PEAK POST Routine 07/29/2024 2: 53 PM EDT BASIC METABOLIC PANEL Routine 07/29/2024 8:40 AM EDT CBC WITH AUTO DIFFERENTIAL Routine 07/29/2024 8:40 AM EDT ECG 12-LEAD Routine 07/28/2024 3:26 PM EDT VITAMIN B12 Add-On 07/28/2024 6:14 AM EDT FOLATE Add-On 07/28/2024 6:14 AM EDT FERRITIN Add-On 07/28/2024 6:14 AM EDT IRON AND TIBC Add-On 07/28/2024 6:14 AM EDT PREALBUMIN Routine 07/28/2024 6:14 AM EDT BASIC METABOLIC PANEL Routine 07/28/2024 6:14 AM EDT CBC WITH AUTO DIFFERENTIAL Routine 07/28/2024 6:14 AM EDT AFB CULTURE CONCENTRATED INCLUDES AFB SMEAR Routine 07/27/2024 3:05 PM EDT SEND OUT TEST Routine 07/27/2024 3:03 PM EDT AFB CULTURE CONCENTRATED INCLUDES AFB SMEAR Routine 07/27/2024 3:03 PM EDT DEBRIDEMENT BREAST 07/27/2024 2: 38 PM EDT LEFT BREAST WOUND Case Notes (EPIC 52) GAVE 60 WORKING- RAJNI IR PERCUTANEOUS BX LIVER Routine 07/11/2024 2:56 PM EDT Liver lesion PLATELET COUNT STAT 07/11/2024 12:53 PM EDT APTT STAT 07/11/2024 12:53 PM EDT PROTIME & INR STAT 07/11/2024 12:53 PM EDT GENERIC SEND OUT LAB USE ONLY Routine 06/15/2024 11:40 AM EDT CBC WITH AUTO DIFFERENTIAL Routine 06/15/2024 6:00 AM EDT COMPREHENSIVE METABOLIC PANEL Routine 06/15/2024 6:00 AM EDT CBC WITH AUTO DIFFERENTIAL Routine 06/14/2024 5:07 AM EDT COMPREHENSIVE METABOLIC PANEL Routine 06/14/2024 5:07 AM EDT SEND OUT TEST Routine 06/13/2024 5:47 PM EDT TISSUE CULTURE Routine 06/13/2024 5:47 PM EDT FUNGAL CULTURE INCLUDES FUNGAL SMEAR Routine 06/13/2024 5:47 PM EDT ANAEROBIC CULTURE Routine 06/13/2024 5:4 7 PM EDT INCISION DRAINAGE CHEST 06/13/2024 5:19 PM EDT L Chest wall wound AMIKACIN, TROUGH, S Routine 06/13/2024 1 0:50 AM EDT CBC WITH AUTO DIFFERENTIAL Routine 06/13/2024 3:35 AM EDT COMPREHENSIVE METABOLIC PANEL Routine 06/13/2024 3:35 AM EDT POTASSIUM Routine 06/12/2024 8:35 PM EDT POTASSIUM Routine 06/12/2024 2:09 PM EDT EXTERNAL LAB ORDERS / RESULTS Routine 06/12/2024 10:36 AM EDT MAGNESIUM Routine 06/12/2024 10:30 AM EDT CBC WITH AUTO DIFFERENTIAL Routine 06/12/2024 4:00 AM EDT COMPREHENSIVE METABOLIC PANEL Routine 06/12/2024 4:[address] CHEST WO CONT Routine 06/11/2024 8:30 PM EDT SUPERFICIAL WOUND CULTURE Routine 06/11/2024 5:15 PM EDT CBC WITH AUTO DIFFERENTIAL Routine 06/11/2024 6:15 AM EDT MAGNESIUM Routine 06/11/2024 6:15 AM EDT COMPREHENSIVE METABOLIC PANEL Routine 06/11/2024 6:15 AM EDT PULSE OXIMETRY, SPOT Routine 06/11/2024 1:36 AM EDT CBC WITH AUTO DIFFERENTIAL STAT 06/11/2024 12:40 AM EDT COMPREHENSIVE METABOLIC PANEL STAT 06/11/2024 12:40 AM EDT BLOOD CULTURE STAT 06/11/2024 12:40 AM EDT BLOOD CULTURE STAT 06/11/2024 12:35 AM EDT BLOOD CULTURE Routine 06/03/2024 11:22 AM EDT NON [facility] WHOLE BODY Routine 06/03/2024 11:05 AM EDT Pain from Last 3 Months Results * (ABNORMAL) Tissue culture includes gram stain (08/12/2024 10:40 AM EDT) Only the most recent of2 resultswithin the time period is included. CULTURE RESULTS Rare Carbapenem Resistant Pseudomonas aeruginosa(A) 08/16/2024 9:32 AM EDT [facility] GRAM STAIN 0 White Blood Cells/LPF 08/16/2024 9:32 AM EDT [facility] GRAM STAIN 0 Squamous Epithelial Cells/LPF 08/16/2024 9:32 AM EDT [facility] GRAM STAIN No organisms seen 08/16/2024 9:32 AM EDT [facility] Tissue (Chest Wall, Left) 08/12/2024 10:40 AM EDT 08/12/2024 11:31 AM EDT Comment:Pre-op diagnosis: LEFT AXILLA WOUND Narrative [facility] - 08/16/2024 9:32 AM [...] KPC (CARBAPENEMASE) Negative Carbapenem Resistant Pseudomonas aeruginosa [id number] (CARBAPENEMASE) Negative Carbapenem Resistant Pseudomonas aeruginosa VIM (CARBAPENEMASE) Negative Carbapenem Resistant Pseudomonas aeruginosa IMP (CARBAPENEMASE) Negative Carbapenem Resistant Pseudomonas aeruginosa NDM (CARBAPENEMASE) Negative Comment:Carbapenem Resistant Organism (EMERGENCY DEPARTMENT MANAGER). The CARBA5 test only detects the 5 most prevalent carbapenemase producing mechanisms in the [place] Other carbapenemase producing mechanisms not detected by this test are rare. Jhon Rosado MD MICROBIOLOGY - GENERA L ORDERABLES Final Result [facility] [address] [place] [address], [place] [phone] * Anaerobic culture (08/12/2024 10:40 AM EDT) Only the most recent of2 resultswithin the time period is included. CULTURE RESULTS NO GROWTH 5 DAYS 08/17/2024 7:01 AM EDT [facility] Tissue (Chest Wall, Left) 08/12/2024 10:40 AM EDT 08/12/2024 11:31 AM EDT Comment:Pre-op diagnosis: LEFT AXILLA WOUND Jhon Rosado MD MICROBIOLOGY - GENERA L ORDERABLES Final Result [facility] [address] [place] [address], [place] [phone] * Send Out Test (08/11/2024 3:03 PM EDT) Only the most recent of3 resultswithin the time period is included. TEST NAME 08/14/2024 7:50 AM EDT GENERIC RESULTING AGENCY SPECIMEN 08/14/2024 7:50 AM EDT GENERIC RESULTING AGENCY SENT TO 08/14/2024 7:50 AM EDT GENERIC RESULTING AGENCY TEST RESULT 08/14/2024 7:50 AM EDT GENERIC RESULTING AGENCY Tissue Left breast structure / Unknown 08/11/2024 3:03 PM EDT 08/11/2024 6:05 PM EDT Allan Lui DO LAB ORDERABLES Final Result GENERIC RESULTING AGENCY * External Lab Orders / Results (08/08/2024 3:30 PM EDT) Only the most recent of2 resultswithin the time period is included. Aurelia Oneill MD LAB ORDERABLES Final Result * [facility] GENERIC ORDER (07/29/2024 2:53 PM EDT) TEST RESULT SEE COMMENTS 08/01/2024 4:29 PM EDT [employer] Comment: Test Result Flag Unit RefValue Amikacin, Peak, S 20.1 mcg/mL 20.0 - 35.0 Test Performed by: [facility] - [address] [address] Flight Test Supervisor: Colten Sosa Ph.D.; CLIA# [id number] Blood 07/29/2024 2:53 PM EDT 07/29/2024 3:09 PM EDT us Jhon Rosado MD LAB BLOOD ORDERABLES Final Result [facility] [address] [place] [address], [place] * Amikacin peak post (07/29/2024 2:53 PM EDT) Pathologist [facility] LOOK Sent to Reference [facility]. 07/29/2024 6:15 PM EDT [facility] Blood 07/29/2024 2:53 PM EDT 07/29/2024 3:09 PM EDT Jhon Rosado MD LAB BLOOD ORDERABLES Final Result Performing Organization Address City/[facility]/ZIP Co de Phone Number [facility] [address] [place] [address], [place] [phone] * (ABNORMAL) CBC auto differential (07/29/2024 8:40 AM EDT) Only the most recent of8 resultswithin the time period is included. [facility] Signature WBC 5.9 4 - 11 x10E9/L 07/29/2024 9:15 AM [facility] RBC Count 3.02(L) 3.8 - 5.2 X10E12/L 07/29/2024 9:15 AM [facility] Hemoglobin 9.9(L) 11.7 - 15.5 g/dL 07/29/2024 9:15 AM [facility] Hematocrit 27.6(L) 35 - 47 % 07/29/2024 9:15 AM [facility] MCV 92 80 - 100 fL 07/29/2024 9:15 AM [facility] MCH 32.8 27 - 34 pg 07/29/2024 9:15 AM [facility] MCHC 35.8 32 - 36 g/dL 07/29/2024 9:15 AM [facility] RDW 17.1(H) 11.5 - 15 % 07/29/2024 9:15 AM [facility] Platelet Count 200 150 - 450 X10E9/L 07/29/2024 9:15 AM [facility] MPV 6.9(L) 7 - 12 fL 07/29/2024 9:15 AM [facility] Neutrophils % 77.5 % 07/29/2024 9:15 AM [facility] Lymphocytes % 9.3 % 07/29/2024 9:15 AM [facility] Monocytes % 7.0 % 07/29/2024 9:15 AM [facility] Eosinophils % 5.4 % 07/29/2024 9:15 AM [facility] Basophils % 0.8 % 07/29/2024 9:15 AM [facility] Neutrophils Absolute (A) 4.6 1.5 - 6.6 10*3/uL 07/29/2024 9:15 AM [facility] Lymphocytes Absolute 0.6(L) 1.0 - 3.5 10*3/uL 07/29/2024 9:15 AM [facility] Monocytes Absolute 0.4 0.0 - 0.9 10*3/uL 07/29/2024 9:15 AM [facility] Eosinophils Absolute 0.3 0.0 - 0.4 10*3/uL 07/29/2024 9:15 AM [facility] Basophils Absolute 0.0 0.0 - 0.2 10*3/uL 07/29/2024 9:15 AM [facility] Differential Type AUTOMATED DIFFERENTIAL 07/29/2024 9:15 AM [facility] Blood Venous blood / Unknown 07/29/2024 8:40 AM EDT 07/29/2024 9:03 AM EDT us Shereen Smallwood PA-C LAB BLOOD ORDERABLES Fin al Result [facility] [address] [place] [address], [place] * (ABNORMAL) Basic Metabolic Panel (07/29/2024 8:40 AM EDT) Only the most recent of2 resultswithin the time period is included. SODIUM 139 134 - 146 mmol/L 07/29/2024 10:01 AM [facility] POTASSIUM 4.0 3.5 - 5.0 mmol/L 07/29/2024 10:01 AM [facility] CHLORIDE 108 98 - 109 mmol/L 07/29/2024 10:01 AM [facility] CARBON DIOXIDE 27 22 - 32 mmol/L 07/29/2024 10:01 AM [facility] ANION GAP 4(L) 5 - 15 mmol/L 07/29/2024 10:01 AM [facility] BLOOD UREA NITROGEN 10 5 - 23 mg/dL 07/29/2024 10:01 AM [facility] CREATININE 0.77 0.40 - 1.00 mg/dL 07/29/2024 10:01 AM [facility] Comment:METHOD TRACEABLE TO IDMS STANDARD GLUCOSE 81 65 - 99 mg/dL 07/29/2024 10:01 AM [facility] CALCIUM 8.3(L) 8.5 - 10.5 mg/dL 07/29/2024 10:01 AM [facility] EGFR Non-Race Dependent >90 >=60 ml/min/1.7 3sq.m 07/29/2024 10:01 AM [facility] Comment: Reported eGFR is based on the CKD-EPI 2020 equation that does not use a race coefficient. Blood Venous blood / Unknown 07/29/2024 8:40 AM EDT 07/29/2024 9:03 AM EDT us Shereen Smallwood PA-C LAB BLOOD ORDERABLES Fin al Result [facility] [address] [place] [address], [place] * EKG (07/28/2024 3:26 PM EDT) 07/28/2024 3:26 PM EDT Narrative TRACEMASTERVUE - 07/28/2024 6:36 PM EDT us Lynda Cayla RICHTER-INTEGRATED MARKETING MANAGER ECG ORDERABLES Final Resul t Performing Organization Address [facility]UST Co de Phone Number TRACEISSACSTERVUE * (ABNORMAL) Iron and TIBC (07/28/2024 6:14 AM EDT) IRON 26(L) 50 - 170 ug/dL 07/28/2024 2:50 PM EDT [facility] TRANSFERRIN 193 168 - 336 mg/dL 07/28/2024 2:50 PM EDT [facility] IRON BINDING 270 250 - 425 ug/dL 07/28/2024 2:50 PM EDT [facility] IRON SATURATION 10(L) 15 - 50 % SATURATION 07/28/2024 2:50 PM EDT [facility] Blood Venous blood / Unknown Port / Unknown 07/28/2024 6:14 AM EDT 07/28/2024 6:20 AM EDT us Lynda Cayla LINDQUIST LAB BLOOD ORDERABLES Final Result Performing Organization Address [facility] de Phone Number [facility] [address] [place] [address], [place] [phone] * Prealbumin (07/28/2024 6:14 AM EDT) PREALBUMIN 19 18 - 45 mg/dL 07/28/2024 2:50 PM EDT [facility] Blood Venous blood / Unknown Port / Unknown 07/28/2024 6:14 AM EDT 07/28/2024 6:20 AM EDT us Shereen DUFFY-Jamal LAB BLOOD ORDERABLES Fin al Result Performing Organization Address City/[facility]/ZIP Co de Phone Number [facility] [address] [place] [address], [place] [phone] * Folate (07/28/2024 6:14 AM EDT) FOLIC ACID 6.9 >5.8 ng/mL 07/28/2024 3:47 PM EDT [facility] Blood Venous blood / Unknown Port / Unknown 07/28/2024 6:14 AM EDT 07/28/2024 6:20 AM EDT Lynda Kulkarni QUALITY ANALYST-INTEGRATED MARKETING MANAGER LAB BLOOD ORDERABLES Final Result [facility] [address] [place] [address], * (ABNORMAL) Ferritin (07/28/2024 6:14 AM EDT) FERRITIN 374(H) 11 - 307 ng/mL 07/28/2024 11:50 AM EDT [facility] Blood Venous blood / Unknown Port / Unknown 07/28/2024 6:14 AM EDT 07/28/2024 6:20 AM EDT Lynda Kulkarni QUALITY ANALYST-INTEGRATED MARKETING MANAGER LAB BLOOD ORDERABLES Final Result [facility] [address] [place] [address], [place] * (ABNORMAL) Vitamin B12 (07/28/2024 6:14 AM EDT) VITAMIN B12 984(H) 180 - 914 pg/mL 07/28/2024 3:48 PM EDT [facility] Blood Venous blood / Unknown Port / Unknown 07/28/2024 6:14 AM EDT 07/28/2024 6:20 AM EDT Lynda Kulkarni QUALITY ANALYST-INTEGRATED MARKETING MANAGER LAB BLOOD ORDERABLES Final Result [facility] [address] [place] [address], * IR percutaneous biopsy liver (07/11/2024 2:56 [...] trained personnel. A total of 30 minutes [id number] moderate sedation was provided by Dr. Luz. [...] trained personnel. A total of 30 minutes [id number] sedation was provided by Dr. Luz. Following [...] Curiel MD IMG IR ORDERABLES Final Result * APTT (07/11/2024 12:53 PM EDT) APTT 32 26 - 37 sec 07/11/2024 1:16 PM EDT [facility] Blood 07/11/2024 12:5 3 PM EDT 07/11/2024 12:56 PM EDT us Valdemar Luz MD LAB BLOOD ORDERABLES Final R esult [facility] [address] [place] [address], * Protime & INR (07/11/2024 12:53 PM EDT) PROTIME 10.9 9.8 - 13.2 sec 07/11/2024 1:16 PM EDT [facility] INR 1.0 0.9 - 1.2 07/11/2024 1:16 PM EDT [facility] Blood 07/11/2024 12:5 3 PM EDT 07/11/2024 12:56 PM EDT Valdemar Luz MD LAB BLOOD ORDERABLES Final R esult Performing Organization Address [facility] Co de Phone Number [facility] [address] [place] [address], [place] * Platelet count (07/11/2024 12:53 PM EDT) Platelet Count 258 150 - 450 X10E9/L 07/11/2024 1:12 PM EDT [facility] MPV 7.1 7 - 12 fL 07/11/2024 1:12 PM EDT [facility] Blood 07/11/2024 12:5 3 PM EDT 07/11/2024 12:56 PM EDT Valdemar Luz MD LAB BLOOD ORDERABLES Final R esult Performing Organization Address [facility] de Phone Number [facility] [address] [place] [address], [place] * (ABNORMAL) Generic Send Out Lab Use Only (06/15/2024 11:40 AM EDT) Test name NAIMA AMIKACIN PEAK SERUM 06/15/2024 4:11 PM EDT SUNQUEST Test result SEE COMMENTS 06/16/2024 12:45 PM(A) 06/16/2024 1:45 PM EDT [facility] Comment: NOTE Test Result Flag Unit RefValue Amikacin, Peak, S 18.1 L mcg/mL 20.0 - 35.0 Test Performed by: [address] [address] Flight Test Supervisor: Colten Sosa Ph.D.; CLIA# [id number] MISCELLANEOUS 06/15/2024 11: 40 AM EDT 06/15/2024 11:43 AM EDT us Carolina Munguia QUALITY ANALYST-INTEGRATED MARKETING MANAGER LAB ORDERABLES Final Resu lt [facility] [address] [place] [address] * (ABNORMAL) Comprehensive metabolic panel (06/15/2024 6:00 AM EDT) Only the most recent of6 resultswithin the time period is included. Sodium 138 134 - 146 mmol/L 06/15/2024 7:16 AM [facility] Potassium, Bld 3.7 3.5 - 5.0 mmol/L 06/15/2024 7:16 AM [facility] Chloride 104 98 - 109 mmol/L 06/15/2024 7:16 AM [facility] CO2 29 22 - 32 mmol/L 06/15/2024 7:16 AM [facility] Anion gap 5 5 - 15 mmol/L 06/15/2024 7:16 AM [facility] BUN 16 5 - 23 mg/dL 06/15/2024 7:16 AM [facility] Creatinine 0.68 0.40 - 1.00 mg/dL 06/15/2024 7:16 AM [facility] Comment:METHOD TRACEABLE TO IDMS STANDARD Glucose 87 65 - 99 mg/dL 06/15/2024 7:16 AM [facility] Calcium 9.2 8.5 - 10.5 mg/dL 06/15/2024 7:16 AM [facility] Total Protein 5.3(L) 6.0 - 8.0 g/dL 06/15/2024 7:16 AM [facility] Albumin 3.2 3.2 - 5.3 g/dL 06/15/2024 7:16 AM [facility] Alkaline Phosphatase 64 39 - 130 U/L 06/15/2024 7:16 AM [facility] AST 13 0 - 41 U/L 06/15/2024 7:16 AM [facility] ALT 11 0 - 31 U/L 06/15/2024 7:16 AM [facility] Total bilirubin 0.7 0.3 - 1.2 mg/dL 06/15/2024 7:16 AM EDT [facility] eGFR (CKD-EPI)non-rac e dependent >90 >59 ml/min/1.7 3sq.m 06/15/2024 7:16 AM EDT [facility] Comment: Reported eGFR is based on the CKD-EPI 2020 equation that does not use a race coefficient. PLASMA 06/15/2024 6:00 AM EDT 06/15/2024 6:35 AM EDT us Benita Matt-Gratop QUALITY ANALYST-INTEGRATED MARKETING MANAGER LAB BLOOD ORDERABL ES Final Result [facility] [address] [place] [address] * (ABNORMAL) Fungal culture includes fungal smear (06/13/2024 5:47 PM EDT) Fungal smear NO FUNGAL ELEMENTS SEEN ON DIRECT SMEAR 06/14/2024 7:17 AM EDT [facility] Culture MYCOBACTERIUM ABSCESSUS GROUP(A) 07/20/2024 1:31 PM EDT [facility] Culture DR. ALLAN LUI REQUESTS SUSCEPTIBILITY 06/29/24 07/20/2024 1:31 PM EDT [facility] Culture SEE SEPARATE REPORT FOR SUSCEPTIBILITY 07/18/24 07/20/2024 1:31 PM EDT [facility] Tissue (Other) 06/13/2024 5: 47 PM EDT Comment:Pre-op diagnosis: L Chest wall wound us Jhon Rosado MD MICROBIOLOGY - GENERA L ORDERABLES Final Result [facility] [address] [facility] [place] [address] * Amikacin, Trough, S (06/13/2024 10:50 AM EDT) Amikacin, Trough, S <0.8 <8.0 mcg/mL 06/14/2024 1:58 PM EDT [facility] Comment: NOTE Test Performed by: [facility] [place] [address] Flight Test Supervisor: Colten Sosa Ph.D.; CLIA# [id number] Blood Serum / Unknown 06/13/2024 1 0:50 AM EDT 06/13/2024 11:18 AM EDT us Natalie Ureña QUALITY ANALYST-INTEGRATED MARKETING MANAGER LAB BLOOD ORDERABLES Heidy l Result [facility] [address] [place] [address] * Potassium (06/12/2024 8:35 PM EDT) Only the most recent of2 resultswithin the time period is included. Potassium, Bld 3.8 3.5 - 5.0 mmol/L 06/12/2024 9:13 PM EDT [facility] PLASMA 06/12/2024 8:35 PM EDT 06/12/2024 8:40 PM EDT us Amy Jack MD LAB BLOOD ORDERABLES Final Resul t Performing Organization Address [facility] Co de Phone Number [facility] [address] [place] [address] * Magnesium (06/12/2024 10:30 AM EDT) Only the most recent of2 resultswithin the time period is included. Magnesium 2.0 1.8 - 2.6 mg/dL 06/12/2024 11:13 AM EDT [facility] PLASMA 06/12/2024 10:3 0 AM EDT 06/12/2024 10:36 AM EDT us Benita Zemple-Gratop QUALITY ANALYST-INTEGRATED MARKETING MANAGER LAB BLOOD ORDERABL ES Final Result Performing Organization Address City/[facility]/ZIP Co de Phone Number [facility] [address] [place] [address] * CT chest without contrast (06/11/2024 8:30 PM EDT) Anatomical Region Laterality Modality Body, Lung, Chest, Body Covera N/A C omputed Tomography 06/12/2024 4:49 AM EDT Addenda Addendum by Nemesio Berrios MD on 06/20/2024 2:39 PM EDT *ADDENDUM*An addendum is being issued for billing: Minimal calcified coronary arterial disease. Finalized by Nemesio Berrios MD on 06/20/2024 2:39 PM Narrative 06/12/2024 4:52 AM EDT STUDY: CT chest without contrast CLINICAL HISTORY: Abscess, infection. COMPARISON: None. TECHNIQUE: CT chest was performed without contrast. Coronal and sagittal reformatted images were obtained and reviewed. Automated exposure control was utilized. Computer aided detection for pulmonary nodules was performed utilizing MINDBODY software. FINDINGS: Assessment in the absence of intravenous contrast is suboptimal, especially with respect to vasculature, metastatic disease, and infectious precesses [if clinically relevant]. Despite this constraint, best attempt is made: No acute findings at the thoracic inlet. Right axillary surgical clips with spiculated soft tissue, 2.2 cm. 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 Open cutaneous wound about the left prepectoral region, surrounding fat stranding, cutaneous thickening. No drainable collection seen. No significant findings visualized upper abdomen. Mild terminale. No aortic intramural hematoma. Nonenlarged heart. Unremarkable pulmonary trunk. No pneumothorax, pleural effusion. Asymmetric scarring right anterior lung, likely related to sequelae of radiation. No new or growing suspicious pulmonary parenchymal opacities. No aggressive osseous lesions. Sigmoid scoliotic curvature of the thoracolumbar spine. IMPRESSION: 1. Cutaneous thickening, open wound left ventral chest with surrounding fat stranding. No drainable collection within the limitations of this noncontrast study. Right breast prosthesis. 2. Right axillary surgical clips, spiculated soft tissue about the right axilla, possibly expected postoperative appearance with granulation tissue, neoplasm is also possible. All CT scans at this facility use dose modulation, iterative reconstruction, and/or weight based dosing when appropriate to reduce radiation dose to as low as reasonably achievable. Finalized by Nemesio Berrios MD on 06/12/2024 4:52 AM Procedure Note Nemesio Berrios MD - 06/12/2024 STUDY: CT chest without contrast CLINICAL HISTORY: Abscess, infection. COMPARISON: None. TECHNIQUE: CT chest was performed without contrast. Coronal and sagittalreformatted images were obtained and reviewed. Automated exposure controlwas utilized. Computer aided detection for pulmonary nodules was performedutilizing MINDBODY software. FINDINGS: Assessment in the absence of intravenous contrast is suboptimal,especially with respect to vasculature, metastatic disease, and infectiousprecesses [if clinically relevant]. Despite this constraint, best attemptis made: No acute findings at the thoracic inlet. Right axillary surgical clipswith spiculated soft tissue, 2.2 cm. 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 Open cutaneous wound about theleft prepectoral region, surrounding fat stranding, cutaneous thickening.No drainable collection seen. No significant findings visualized upper abdomen. Mild terminale. Noaortic intramural hematoma. Nonenlarged heart. Unremarkable pulmonarytrunk. No pneumothorax, pleural effusion. Asymmetric scarring rightanterior lung, likely related to sequelae of radiation. No new or growingsuspicious pulmonary parenchymal opacities. No aggressive osseous lesions. Sigmoid scoliotic curvature of thethoracolumbar spine. IMPRESSION: 1. Cutaneous thickening, open wound left ventral chest with surroundingfat stranding. No drainable collection within the limitations of thisnoncontrast study. Right breast prosthesis. 2. Right axillary surgical clips, spiculated soft tissue about the rightaxilla, possibly expected postoperative appearance with granulationtissue, neoplasm is also possible. All CT scans at this facility use dose modulation, iterativereconstruction, and/or weight based dosing when appropriate to reduceradiation dose to as low as reasonably achievable. Finalized by Nemesio Berrios MD on 06/12/2024 4:52 AM Carolina Munguia APRN-[facility] CT ORDERABLES Edited R esult - Final * Wound culture superficial includes gram stain (06/11/2024 5:15 PM EDT) Gram Stain Result 1 to 9 WHITE BLOOD CELLS/LPF 06/11/2024 11:00 PM EDT [facility] Gram Stain Result 0 to 1 SQUAMOUS EPITHELIAL CELLS/LPF 06/11/2024 11:00 PM EDT [facility] Gram Stain Result NO ORGANISMS SEEN 06/11/2024 11:00 PM EDT [facility] Culture RARE NORMAL SKIN EMILIE 06/13/2024 8:02 AM EDT [facility] Wound swab / Unknown 06/11/2024 5:15 PM EDT 06/11/2024 6:38 PM EDT Comment:CHEST us Carolina Munguia QUALITY ANALYST-INTEGRATED MARKETING MANAGER MICROBIOLOGY - GENERAL ORD ERABLES Final Result [employer] [facility] [address] [facility], [address] [place] [address] * Blood culture (06/11/2024 12:40 AM EDT) Only the most recent of3 resultswithin the time period is included. Culture NO GROWTH 5 DAYS 06/16/2024 9:02 AM EDT [facility] Blood Blood / Unknown 06/11/2024 1 2:40 AM EDT 06/11/2024 8:51 AM EDT Comment:LEFT ARM us Deshaun Acevedo MD MICROBIOLOGY - GENERAL ORDMichaelle RIVERA Final Result [facility] * NON [facility] PET [facility] WHOLE BODY (06/03/2024 11:05 AM EDT) us Scanning Provider External IMG PET ORDERABLES Fi nal Result from Last 3 Months Additional Health Concerns Active Problems Noted Date Diagnosed Date Autogenerated Problem 08/09/[address] [place] [address] MEDICAID Advance Directives * Full Code (Latest Code Status on File) Date Activated Date Inactivated Comments 06/11/2024 1:36 AM 06/15/2024 8:27 PM * Full Code Date Activated Date Inactivated Comments 05/02/2024 6:38 PM 05/13/2024 3:07 PM * Full Code Date Activated Date Inactivated Comments 12/02/2023 11:16 PM 12/09/2023 6:06 PM * Full Code Date Activated Date Inactivated Comments 10/29/2023 6:33 AM 10/29/2023 2:40 PM Care Teams Software Applications Developer Relationship Specialty Start Date End Date Amy Collier, QUALITY ANALYST-INTEGRATED MARKETING MANAGER [address] [place] [address] PCP - General 11/28/16
--- OUTSIDE RECORDS SUMMARY | 2024-08-24 11:14 | XMS_ITS | Encounter Summary ---
Author Organization [employer] tem Address [id number] [address] [place] [address] Care Team Providers Care Ski Patrol Officer Name Role Phone Amy Collier ANTIQUE CLOCKS REPAIRER-DAIRY NUTRITIONIST Primary Care Provider + Encounter Details Date Type Department Care Team (Late st Contact Info) Description 08/22/2024 Telephone [facility] [address] [facility] [address] [place] [address] Viviane Lopez CMA Social History Tobacco Use Types Packs/Day Years Used Date Smoking Tobacco: Never Passive Smoke Exposure: Past Smokeless Tobacco: Never Alcohol Use Standard Drinks/Week Comments Not Currently 0 (1 standard drink = 0.6 oz pur e alcohol) [facility] Utilities Answer Date Recorded In the past 12 months has [employer] electric, gas, oil, or water [employer] threatened to shut off services in your [...] Answer Date Recorded Total Score 0 08/10/2024 [facility] [place] of Occupat ional Health - Occupational Stress [...] Telephone Encounter - Viviane Lopez CMA - 08/22/2024 4:54 PM EDT [facility] Microbiology lab Radha called she said they have a positive culture for rico of her left breast they be reached at [phone] * Telephone Encounter - AMEENA Kennedy - 08/22/2024 4:54 PM EDT Called micro back. Positive [employer]. This is known for the patient. Currently seeing ID documented in this encounter Plan of Treatment Upcoming Encounters Date Type Department Care Team (Late st Contact Info) Description 08/29/2024 9:30 AM EDT Office Visit [facility] Physicians Plastic and Reconstructive Surgery [address] [facility] [place] [address] Shereen Smallwood PA-C [address], [address] [place] [address] 10/26/2024 8:30 AM EDT Telephone Visit [facility] Gynecology Oncology, A Department of [facility] [address] [place] [address] Raymond Sepulveda MD [address] [facility], [address] [place] [address] documented as of this encounter Goals Goal Patient Goal Type Associated Problems Recent Progress Patient-Stated? Author return home General Yes Mariah Gonsalez, RN Note: Evaluation of progress towards goal: progressing, patient will return home at discharge/[facility] Autogenerated Goal Care Plan Autogenerated Problem No Skyla Marie documented as of this encounter Visit Diagnoses Not on filedocumented in this encounter Additional Health Concerns Active Problems Noted Date Diagnosed Date Autogenerated Problem 08/09/2024 Assessment Noted Time PHQ-9 Depression Total Score: 0 08/11/19 25 3:50 PM EDT documented as of this encounter Care Teams Ski Patrol Officer Relationship Specialty Start Date End Date Amy Collier, ANTIQUE CLOCKS REPAIRER-DAIRY NUTRITIONIST [address] [place] [address] PCP - General 11/28/16 documented as of this encounter
--- OUTSIDE RECORDS SUMMARY | 2024-08-24 11:14 | XMS_ITS | Encounter Summary ---
Author Organization [facility] Address [address] [place] [address] Care Team Providers Care Cut Pressman Name Role Phone Nilda Carolina ROBER Unavailable Jessica Hope MD Unavailable [phone] Lynda Manuel CNP Primary Care Provider [phone] Shereen Smallwood PA-C Unavailable [phone] Radha Martinez RN Unavailable Source Comments In the event this information is protected by the Federal Confidentiality of Alcohol and Drug AbusePatient Records regulations: The Federal rules restrict any use of the information to criminally investigate or prosecute any alcohol or drug abuse patient.[facility] Encounter Details Date Type Department Care Team (Late st Contact Info) Description 05/31/2024 Lab Requisition [facility] [address] [place] [phone] Jessica Hope MD [address] [place] [address] Person encountering health services to consult on [...] Procedure Name Priority Date/Time Associated Diagnosis Comments BONE MARROW REFERENCE LAB CONSULT Routine 05/31/2024 9:19 PM EDT Person encountering health services to consult on behalf of another person documented in this encounter Results * BONE MARROW REFERENCE LAB CONSULT (05/31/2024 9:19 PM EDT) Case Report Bone Marrow Pathology Report Case: [id number] Authorizing Provider: Jessica Hope MD Collected: 05/31/2024 09:19 PM Ordering Location: [facility] Received: 05/31/2024 09:20 PM [facility] Pathologist: Deidre Avelar MD, PhD Specimen: Slide(s), 13 SLIDES [id number] 06/12/2024 11:59 AM EDT [facility] FINAL DIAGNOSIS A. Outside materials received from [facility], [place], [place] (External ID [id number], 05/12/2024) Bone marrow aspirate smears, touch imprints, core biopsy and clot section: -Cellular bone marrow with maturing trilineage hematopoiesis and increased ring sideroblasts. -Increased storage iron. -See comment. Peripheral blood smear: -Pancytopenia [facility] June 11, 2024 06/12/2024 11:59 AM EDT [facility] at 1159 EDT Diagnosis Comment [...] Linezolid is associated with ring sideroblasts (PMID: [id number]) and may cause bone marrow suppression. Tedezolid is in the same class, although may be associated with less bone marrow suppression (PMID: [id number]). Overall, given the absence of evidence of clonal hematopoeisis, interval resampling following completion of the the antibiotic course may be helpful to further clarify, if cytopenias persist. Please do not hesitate to contact the Hematopathology Consult Service at [phone] for any questions or if additional follow-up information becomes available. 06/12/2024 11:59 AM EDT [facility] Microscopic Description PERIPHERAL BLOOD: CBC [...] lobation. Other: Additional stains are performed at [facility] to further clarify the morphologic findings. CD34 [...] Performed. 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 06/12/2024 11:59 AM EDT [facility] Clinical History CONSULT REQUESTED 06/12/2024 11:59 AM EDT [facility] Performing Lab Diagnostic interpretation performed at: [facility], [address] [place] [address], [place] [address] CLIA# [id number] Pharmacy Teacher: Derick Meadows MD 06/12/2024 11:59 AM EDT [facility] Disclaimer Laboratory Developed Test (LDT) Disclaimer: Performance characteristics of immunohistochemica l, immunofluorescent, and chromogenic in-situ hybridization tests have been determined by the performing laboratory within [facility]'s Yunior Lala Pathology and Laboratory Medicine Department ([facility], [facility], [facility], [facility], [facility], [facility], or [facility]) in a manner consistent with CLIA requirements. One or more of these tests may not have been cleared or approved by the FDA. [facility] is regulated under CLIA as qualified to perform high-complexity testing. These tests are used for clinical purposes. These should not be regarded as investigational or for research. Positive and negative controls stain appropriately. 06/12/2024 11:59 AM EDT [facility] Blocks or Slides MICROSCOPE SLIDE / Unknown 05/31/2024 9:19 PM EDT 05/31/2024 9:20 PM EDT us Jessica Hope MD SURGICAL PATHOLOGY Final Resul t [facility] [address] [address], documented in this encounter Visit Diagnoses Diagnosis Person encountering health services to consult on behalf of another person Other person consulting on behalf of another person documented in this encounter Care Teams Cut Pressman Relationship Specialty Start Date End Date Lynda Manuel CNP [address] [place] [address] PCP - General Family Medicine 06/14/24 Carolina Munguia APRN [address] [facility] [address] [place] [address] 12/04/23 Jessica Hope MD [address] [place] [address] Referring Hematology/Oncology 06/14/24 Shereen Smallwood PA-C [address] [facility] [address] [place] [address] [facility] Referring Orthopedics 06/15/24 [place] [address] [place] [address] Specialty Orange Picking Supervisor Hematology/Oncology 07/31/24 documented as of this encounter
--- OUTSIDE RECORDS SUMMARY | 2024-08-24 11:14 | XMS_ITS | Encounter Summary ---
Author Organization [facility] tem Address [id number] [address] [place] [address] Care Team Providers Care Food And Beverage Director Name Role Phone Amy Collier PROCEDURAL NURSE-PC MAINTENANCE TECHNICIAN Primary Care Provider + Encounter Details Date Type Department Care Team (Late st Contact Info) Description 04/29/2024 Orders Only [facility] Division of [facility] - 8 Med-Surg/Ortho [address] [place] [phone] Lynda Morillo RN Social History Tobacco Use Types Packs/Day Years Used Date Smoking Tobacco: Never Passive Smoke Exposure: Past Smokeless Tobacco: Never Alcohol Use Standard Drinks/Week Comments Yes 0 (1 standard drink = 0.6 oz pur e alcohol) Socially [employer] Util[employer] Answer Date Recorded In the past [...] any clubs o r organizations such as uatsdin groups, unions, fraternal or athletic groups, or [...] Answer Date Recorded Total Score 2 03/30/2024 [facility] of Occupat ional Health - Occupational Stress [...] need help finding a [facility] career [facility] and/or a training program? No [...] EDT [facility] [address] [facility] [address] [place] [address] Shereen Smallwood, PA-C [address], [facility] [address] [place] [address] 10/26/2024 8:30 AM EDT [facility] Department of [facility] [address] [facility] [address] [place] [phone] [place] [address] [place] [address], [address] [place], [place] [phone] documented as of this encounter Visit Diagnoses Not on filedocumented in this encounter Additional Health Concerns Assessment Noted Time PHQ-9 Depression Total Score: 2 03/30/19 25 3:58 PM EST documented as of this encounter Care Teams Food And Beverage Director Relationship Specialty Start Date End Date Amy Collier, ROBER-PC MAINTENANCE TECHNICIAN [address] [place] [address] PCP - General 11/28/16 documented as of this encounter
--- OUTSIDE RECORDS SUMMARY | 2024-08-24 11:14 | XMS_ITS | Encounter Summary ---
Author Organization [facility] Address [id number] [address] [place] [address] Care Team Providers Care Hha Name Role Phone Amy Collier POURED WALL FOREMAN-DISHROOM ATTENDANT Primary Care Provider + Encounter Details Date Type Department Care Team (Late st Contact Info) Description 08/18/2022 Orders Only [facility] Internal Medicine - Family Medicine [address] [place] [address] External, Scanning Provider Social History [...] How often do you attend chur or alevism services? More than 4 times [...] Answer Date Recorded Total Score 0 03/07/2022 [facility] of Occupat ional Health [...] Recorded Do you need help finding a [facility] career center and/or a training program? [...] 9:30 AM EDT Office Visit [facility]icians Plastic and Reconstructive Surgery [address] [facility] [address] [place] [phone] Shereen Smallwood PA-C [address] [facility], [facility] [address] [place] [address] 10/26/2024 8:30 AM EDT [facility], A Department of [facility] [address] [facility] [address] [place] [address] Raymond Sepulveda MD [address] [place] [address], [address] [place] [address] documented as of this encounter Procedures Procedure Name Priority Date/Time Associated Diagnosis Comments MULTIPLE LABS Routine 08/15/2022 documented in this encounter Results * Multiple labs (08/15/2022) us Scanning Provider External OR IMAGING Final Result MANUALLY TRANSCRIBED RESULTS documented in this encounter Visit Diagnoses Not on filedocumented in this encounter Additional Health Concerns Assessment Noted Time PHQ-9 Depression Total Score: 0 03/07/19 23 11:14 AM EST documented as of this encounter Care Teams Hha Relationship Specialty Start Date End Date Amy Collier, POURED WALL FOREMAN-DISHROOM ATTENDANT [address] [place] [address] PCP - General 11/28/16 documented as of this encounter
--- OUTSIDE RECORDS SUMMARY | 2024-08-24 11:14 | XMS_ITS ---
Author Organization [employer] tem Address [id number] [address] [place] [address] Care Team Providers Care Community Youth Secretary Name Role Phone Amy Collier INFECTION CONTROL PREVENTIONIST-SENIOR INSIGHT MANAGER Primary Care Provider + Active Problems Problem Noted Date Diagnosed Date [...] Cancer Staging:Clinical:Stage IIIC(cT2, cN3, cM0, G3, ER+, IL-, HER2-) - Signed by Christy He MD [...] Complete tear, knee, anterior cruciate ligament 04/30/2006 Current Treatment and Therapy Plans No current plan information found. Past Treatment and Therapy Plans No past plan information found. Lifetime Dose Tracking * Chemical Lifetime Dose Automatic Entry Manual Entr y Fluoroscopy 9.68 mGy 9.68 mGy 0 mGy
--- OUTSIDE RECORDS SUMMARY | 2024-08-24 11:14 | XMS_ITS | Encounter Summary ---
Author Organization [employer] tem Address [id number] [address] [place] [address] Care Team Providers Care Securities Dealer Name Role Phone Amy Collier PHLEBOTOMIST-AUTOMATIC LATHE OPERATOR Primary Care Provider + Encounter Details Date Type Department Care Team (Latest Contact Info) Description 08/18/2024 Travel Social History Tobacco Use Types Packs/Day Years Used Date Smoking Tobacco: Never Passive Smoke Exposure: Past Smokeless Tobacco: Never Alcohol Use Standard Drinks/Week Comments Not Currently 0 (1 standard drink = 0.6 oz pur e alcohol) [facility] Utilities Answer Date Recorded In the past 12 months has [employer] electric, gas, oil, or water company threatened [...] often do you attend [facility] or mandaeism services? More than 4 times [...] Answer Date Recorded Total Score 0 08/10/2024 [facility] of Occupat ional Health - [...] Recorded Do you need help finding a [facility] career [facility] and/or a training [...] Description 08/29/2024 9:30 AM EDT Office Visit [facility] Plastic and Reconstructive Surgery [address] [facility] [address] [place] [address] Shereen Smallwood PA-C [address] [facility] [address] [place] [address] 10/26/2024 8:30 AM EDT Telephone Visit [facility] Gynecology Oncology, A Department of [facility] [address] [facility] [address] [place] [address] [place] [address] [place] [address], [address] [place] [address] documented as of this encounter Goals Goal Patient Goal Type Associated Problems Recent Progress Patient-Stated? Author return home General Yes Mariah Gonsalez RN Note: Evaluation of progress towards goal: progressing, patient will return home at discharge/follow up [facility] care [facility] Autogenerated Goal Care Plan Autogenerated Problem No Skyla Marie documented as of this encounter Visit Diagnoses Not on filedocumented in this encounter Additional Health Concerns Active Problems Noted Date Diagnosed Date Autogenerated Problem 08/09/2024 Assessment Noted Time PHQ-9 Depression Total Score: 0 08/11/19 25 3:50 PM EDT documented as of this encounter Care Teams Securities Dealer Relationship Specialty Start Date End Date Amy Collier, PHLEBOTOMIST-AUTOMATIC LATHE OPERATOR [address] [place] [address] PCP - General 11/28/16 documented as of this encounter
--- OUTSIDE RECORDS SUMMARY | 2024-08-24 11:14 | XMS_ITS | Encounter Summary ---
Author Organization [employer] Sys [employer] Address [place]-[id number] [address] [place] [address] Care Team Providers Care Community Educator Name Role Phone Amy Collier MEDIA CLERK-HIGH TENSION TESTER Primary Care Provider + Encounter Details Date Type Department Care Team (Late st Contact Info) Description 04/27/2024 Telephone [facility]ive [facility] [address] [facility] [address] [place] [address] Viviane Lopez CMA Social History Tobacco Use Types Packs/Day Years Used Date Smoking Tobacco: Never Passive Smoke Exposure: Past Smokeless Tobacco: Never Alcohol Use Standard Drinks/Week Comments Yes 0 (1 standard drink = 0.6 oz pur e alcohol) Socially [employer] Utilities Answer Date Recorded In the past 12 months has [employer] electric, gas, oil, or water [employer] threatened to shut off services in your [...] often do you attend chur ch or holiness services? More than 4 times per year 02/27/2022 Do you belong to any clubs o r organizations such as pentecostalism groups, unions, fraternal or athletic groups, or [...] Answer Date Recorded Total Score 2 03/30/2024 [facility] [place] of Occupat ional Health - Occupational Stress [...] got money to buy more. Never True 03/30/2024 Within the past 12 months th e food we bought just didn't last and we didn't have money to get more. Never True 03/30/2024 Purpose - Life Answer Date Recorded I [...] Telephone Encounter - Viviane Lopez CMA - 04/27/2024 10:47 AM EST Breast wound opening up more. Increased swelling around her port Dr leonard said he is going to email us some updated photos that patient sent him. He is requesting a call from provider to discuss patient. documented in this encounter Plan of Treatment Upcoming Encounters Date Type Department Care Team (Late st Contact Info) Description 08/29/2024 9:30 AM EDT Office Visit [facility] Physicians Plastic and Reconstructive Surgery [address] [facility] [address] [place] [address] Shereen Smallwood PA-C [address], [facility] [address] [place] [address] 10/26/2024 8:30 AM EDT [facility], A Department of [facility] [address] [facility] [address] [place] [address] [place] [address] [place] [address], [address] [place] [address] documented as of this encounter Visit Diagnoses Not on filedocumented in this encounter Additional Health Concerns Assessment Noted Time PHQ-9 Depression Total Score: 2 03/30/19 25 3:58 PM EST documented as of this encounter Care Teams Community Educator Relationship Specialty Start Date End Date Amy Collier, MEDIA CLERK-HIGH TENSION TESTER [address] [place] [address] PCP - General 11/28/16 documented as of this encounter
--- OUTSIDE RECORDS SUMMARY | 2024-08-24 11:14 | XMS_ITS | Encounter Summary ---
Author Organization [employer] Address [id number] [address] [place] [address] Care Team Providers Care Dispatcher Automobile Rental Name Role Phone Amy Collier BARTENDER HELPER-SHIPYARD SUPERVISOR Primary Care Provider + Encounter Details Date Type Department Care Team (Late st Contact Info) Description 03/10/[address] [facility] - Family Medicine [address] [place] [address] Nat Javed CMA Social History [...] How often do you attend chur or confucianist services? More than 4 times [...] Answer Date Recorded Total Score 0 03/07/2022 [facility] of Occupat ional Health - [...] Recorded Do you need help finding a [facility] career center and/or a training program? [...] encounter Miscellaneous Notes * Telephone Encounter - Nat Javed CMA - 03/10/2023 8:27 AM EST Patient called for her Mammogram result. She said it was abnormal and wanted to know what to do from here. I called and got the results. * Telephone Encounter - AMEENA Garcia - 03/10/2023 8:27 AM EST I sent diagnostic mammogram and US right breast to [facility] - she can call to get that set up today. Herresult was cut off of the right breast but from what I can see they found some lymph enlargement and mass to right breast. Can you please call [facility] and ask them to fax the results of these tests as soon as they are read. Her abnormal mammogram was done 03/06 and we just got the result today. documented in this encounter Plan of Treatment Upcoming Encounters Date Type Department Care Team (Late st Contact Info) Description 08/29/2024 9:30 AM EDT Office Visit [facility] Physicians Plastic and Reconstructive Surgery [facility] [address] [facility] [address] [place] [address] Shereen Smallwood PA-C [address], [facility] [address] [place] [address] 10/26/2024 8:30 AM EDT [facility], A Department of [place] [address] [address] [facility] [address] [place] [phone] Raymond Sepulveda MD [address] [facility], [address] [place] [address] documented as of this encounter Visit Diagnoses Not on filedocumented in this encounter Additional Health Concerns Assessment Noted Time PHQ-9 Depression Total Score: 0 03/07/19 23 11:14 AM EST documented as of this encounter Care Teams Dispatcher Automobile Rental Relationship Specialty Start Date End Date Amy Collier APRN-SHIPYARD SUPERVISOR [address] [place] [address] PCP - General 11/28/16 documented as of this encounter
--- OUTSIDE RECORDS SUMMARY | 2024-08-24 11:14 | XMS_ITS | Encounter Summary ---
Author Organization [employer] Sys tem Address [facility]-[id number] [address] [place] [address] Care Team Providers Care Healthcare Economics Manager Name Role Phone Amy Collier OIL WELL ENGINEER-CARDIOPULMONARY TECHNICIAN AND EEG TECH Primary Care Provider + Encounter Details Date Type Department Care Team (Late st Contact Info) Description 08/12/2024 [facility] [address] [facility] [address] [place] [address] Jhon Rosado MD [address], [facility] [address] [place] [address] Social History Tobacco Use Types Packs/Day Years Used Date Smoking Tobacco: Never Passive Smoke Exposure: Past Smokeless Tobacco: Never Alcohol Use Standard Drinks/Week Comments Not Currently 0 (1 standard drink = 0.6 oz pur e alcohol) [facility] Utilities Answer Date Recorded In the past 12 months has [employer], gas, oil, or water [employer] threatened to shut off services in your [...] often do you attend chur ch or confucianism services? More than 4 times per year [...] Answer Date Recorded Total Score 0 08/10/2024 [facility]at [facility] - Occupational Stress Questionnaire Answer Date Recorded [...] Do you need help finding a [facility] and/or a training program? [...] encounter Miscellaneous Notes * Telephone Encounter - Roxane Valdez - 08/12/2024 1:44 PM EDT Jared from [facility] called to say patient was positive for AFB and he sent it out. * Telephone Encounter - Kendy Pablo - 08/12/2024 1:44 PM EDT Message sent to Dr. Poole documented in this encounter Plan of Treatment Upcoming Encounters Date Type Department Care Team (Late st Contact Info) Description 08/29/2024 9:30 AM EDT Office Visit [facility] Physicians Plastic and Reconstructive Surgery [address] [facility] [place] [address] Shereen Smallwood, PANicolasC [address], [address] [facility] [place] [address] 10/26/2024 8:30 AM EDT Telephone Visit [facility] Gynecology Oncology, A Department of [facility] [address] [facility] [place] [address] Raymond Sepulveda MD [address] [facility], [address] [place] [address] documented as of this encounter Goals Goal Patient Goal Type Associated Problems Recent Progress Patient-Stated? Author return home General Yes Mariah Gonsalez, RN Note: Evaluation of progress towards goal: progressing, patient will return home at discharge/follow up [facility] Autogenerated Goal Care Plan Autogenerated Problem No María Elenaconrado Skyla documented as of this encounter Visit Diagnoses Not on filedocumented in this encounter Additional Health Concerns Active Problems Noted Date Diagnosed Date Autogenerated Problem 08/09/2024 Assessment Noted Time PHQ-9 Depression Total Score: 0 08/11/19 25 3:50 PM EDT documented as of this encounter Care Teams Healthcare Economics Manager Relationship Specialty Start Date End Date Amy Collier, OIL WELL ENGINEER-CARDIOPULMONARY TECHNICIAN AND EEG TECH [address] [facility] [place] [address] PCP - General 11/28/16 documented as of this encounter
--- OUTSIDE RECORDS SUMMARY | 2024-08-24 11:15 | XMS_ITS | Encounter Summary ---
Author Organization [employer] Sys tem Address [id number] [address] [place] [address] Care Team Providers Care Condenser Tube Tender Name Role Phone Amy Collier LAB TESTER-GRILL CHEF Primary Care Provider + Encounter Details Date Type Department Care Team (Late st Contact Info) Description 04/07/2024 Telephone [facility] Plastic and Reconstructive Surgery [address] [facility] [address] [place] [address] Viviane Lopez CMA Social History Tobacco Use Types Packs/Day Years Used Date Smoking Tobacco: Never Passive Smoke Exposure: Past Smokeless Tobacco: Never Alcohol Use Standard Drinks/Week Comments Yes 0 (1 standard drink = 0.6 oz pur e alcohol) Socially [facility] Utilities Answer Date Recorded In the past 12 months has [employer], gas, oil, or water [employer] threatened to shut off services in your [...] Answer Date Recorded Total Score 2 03/30/2024 [facility] of Occupat ional Health - Occupational Stress [...] Telephone Encounter - Viviane Lopez CMA - 04/07/2024 1:56 PM EST Lab called they said they have a positive fungal AFB on patient * Telephone Encounter - AMEENA Kennedy - 04/07/2024 1:56 PM EST FYI, ongoing positive AFB. documented in this encounter Plan of Treatment Upcoming Encounters Date Type Department Care Team (Late st Contact Info) Description 08/29/2024 9:30 AM EDT [facility] Visit [facility] Physicians Plastic and Reconstructive Surgery [facility] [address] [facility] [address] [place] [address] Shereen Smallwood PA-C [address], [facility] [address] [place] [address] 10/26/2024 8:30 AM EDT Telephone Visit [facility] Gynecology Oncology, A Department of [place] [address] [facility] [address] [place] [address] Raymond Sepulveda MD [address] [facility], [address] [place] [address] documented as of this encounter Visit Diagnoses Not on filedocumented in this encounter Additional Health Concerns Assessment Noted Time PHQ-9 Depression Total Score: 2 03/30/19 25 3:58 PM EST documented as of this encounter Care Teams Condenser Tube Tender Relationship Specialty Start Date End Date Amy Collier APRN-GRILL CHEF [address] [place] [address] PCP - General 11/28/16 documented as of this encounter
== END 2024-08-24 11:09 | disposition home or self-care (01) ==
LOC: CARD 11:09
PROVIDERS: PCP Nurse Practitioner Family
DX: Z51.81 Encounter for therapeutic drug level monitoring (principal)
CPT/HCPCS: 93005

== ENCOUNTER 2024-08-25 08:37 | Outpatient (OUT) | payer OTHER, SELFPAY ==
--- NOTE | 2024-08-25 08:47 | CT_ITS ---
The [address] [address] Patient Name: IKE JONES MRN: [id number] date: 1970 Sex: F Assigned Patient Location: CT Current Patient Location: [facility] Accession/Order Number: [id number] Exam Date: 08/25/2024 09:31 Report Date: 08/25/2024 09:46 At the request of: ARATI NUNEZ MD Procedure: CT head/brain wo/w con CT BRAIN WITHOUT AND WITH INTRAVENOUS CONTRAST: CLINICAL HISTORY: Slurred speech for the past 1 to 2 weeks. Metastatic breast cancer COMPARISON: None TECHNIQUE: Contiguous axial images were obtained through the brain both before and after intravenous administration of 100 mL of Omnipaque 300. This CT exam was performed using one or more following dose reduction techniques: Automated exposure control, adjustment of the mA and/or kV according to patient size, or use of iterative reconstruction technique. FINDINGS: The ventricles are within normal limits for size and position. There are suspected prominent perivascular spaces in the basal ganglia region on both sides. An enhancing mass is visualized at the posterior, slightly inferior cerebellum in the midline. It measures 1.5 x 1.3 x 2.0 cm in size. No other definite enhancing masses are identified. There is no hemorrhage, mass effect or extra-axial collections. There is opacification the left frontal sinus and some of the left ethmoid air cells. The remaining paranasal sinuses and mastoid air cells are clear. CT/CT head/brain wo/w con IMPRESSION: LEFT-SIDED SINUS DISEASE. ENHANCING POSTERIOR FOSSA MASS. GIVEN THE HISTORY, THIS MIGHT BE METASTATIC DISEASE. IF POSSIBLE, MRI FOLLOW-UP IS SUGGESTED FOR FURTHER CHARACTERIZATION AND TO ASSESS FOR ANY ADDITIONAL OCCULT LESIONS. Impression dictated by: Seema Martin M.D. 08/25/2024 9:46 AM Dictation Location: [place] [address] Electronically authenticated by: [id number] Y Date: 08/25/2024 09:46
== END 2024-08-25 08:38 | disposition home or self-care (01) ==
LOC: CT 08:38
PROVIDERS: PCP Nurse Practitioner Family; Visit Provider Internal Medicine Hematology & Oncology
DX: C50.311 Malignant neoplasm of lower-inner quadrant of right female breast (principal); Z79.899 Other long term (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 therapy; D70.1 Agranulocytosis secondary to cancer chemotherapy; R11.2 Nausea with vomiting, unspecified; C77.9 Secondary and unspecified malignant neoplasm of lymph node, unspecified; Z15.09 Genetic susceptibility to other malignant neoplasm; Z79.818 Long term (current) use of other agents affecting estrogen receptors and estrogen levels; D64.81 Anemia due to antineoplastic chemotherapy; C77.3 Secondary and unspecified malignant neoplasm of axilla and upper limb lymph nodes; Z17.1 Estrogen receptor negative status [ER-]; Z17.22 Progesterone receptor negative status; D49.6 Neoplasm of unspecified behavior of brain
CPT/HCPCS: 70470; Q9967

== ENCOUNTER 2024-08-25 13:49 | Emergency (ER) | payer OTHER, SELFPAY ==
--- OUTSIDE RECORDS SUMMARY | 2024-07-05 06:00 | XMS_ITS ---
Author Organization [facility] [place] Address [address] [place] [place] [address] Care Team Providers Care Loft Patternmaker Name Role Phone Lynda Lawson Primary Care Provider UnavailJessica Lala Unavailable [phone] REASON FOR VISIT MD Encounters Encounter Location Date Provider Diagnosis [facility] [address] [place] [phone] 07/05/2024 Jessica Hope Plan Of Treatment Next Appt Details Provider Name:Jessica Hope , 09/06/2024 10:15:00 AM, [address] [place], [address], Progress Notes * Yasmin FLANNERY ADOB:[birth year] (53 yo F)Acc No.[id number]:07/05/2024 UNLOCKED PROGRESS NOTE Progress Notes Patient: Yasmin KHALIL Provider: Yumi Hope M.D. :1970 A ge:53 Y S ex:Female Date:07/05/2024 Address:[address] [place] , [id number] Pcp:GUY Wilson Subjective: * Chief Complaints: * 1 . MD. * Medical History: Objective: * Vitals: Assessment: Plan: * Treatment: * * Electronic signature of Parisa Hope MD, [id number] on 08/25/2024 at 02:03 PM EDT Sign off status: Pending Visit Status: Jamal CASTILLO (Voice) * Provider: Yumi Hope M.D. Date: 0 07/05/2024 Generated for Abby stewart/Danni/Sujata on: 0 08/25/2024 02:03 PM EDT
--- OUTSIDE RECORDS SUMMARY | 2024-07-26 05:00 | XMS_ITS ---
Author Organization [facility] in [place] Address [address] [place] [address] Care Team Providers Care Agricultural Equipment Sales Manager Name Role Phone Lynda Lawson Primary Care Provider UnavailJessica Lala Unavailable [phone] REASON FOR VISIT MD Encounters Encounter Location Date Provider Diagnosis [facility] Oncology [address] [place] [id number] 07/26/2024 Jessica Hope Plan Of Treatment Next Appt Details Provider Name:Jessica Hope , 09/06/2024 10:15:00 AM, [address] [place], [address], Progress Notes * Yasmin FLANNERY ADOB:[birth year] (53 yo F)Acc No.[id number]:07/26/2024 UNLOCKED PROGRESS NOTE Progress Notes Patient: Yasmin KHALIL Provider: Yumi Hope M.D. :1970 A ge:53 Y S ex:Female Date:07/26/2024 Address:[address] [place] , [id number] Pcp:GUY Wilson Subjective: * Chief Complaints: * 1 . MD. * Medical History: Objective: * Vitals: Assessment: Plan: * Treatment: * * Electronic signature of Parisa Hope MD, [id number] on 08/25/2024 at 02:02 PM EDT Sign off status: Pending Visit Status: Jamal CASTILLO (Voice) * Provider: Yumi Hope M.D. Date: 0 07/26/2024 Generated for Abby stewart/Danni/Sujata on: 0 08/25/2024 02:02 PM EDT
--- OUTSIDE RECORDS SUMMARY | 2024-08-10 10:00 | XMS_ITS | Encounter Summary ---
[id number] [place] [address] Care Team Providers Care Summer Internship Name Role Phone Amy Collier DIE EQUIPMENT OPERATOR-BURNER TENDER Primary Care Provider + Encounter Details Date Type Department Care Team (Late st Contact Info) Description 08/10/2024 10:00 AM EDT [facility] On [address] [address] Social History Tobacco Use Types Packs/Day Years Used Date Smoking Tobacco: Never Passive Smoke Exposure: Past Smokeless Tobacco: Never Alcohol Use Standard Drinks/Week Comments Not Currently 0 (1 standard drink = 0.6 oz pur e alcohol) [facility] Utilities Answer Date Recorded In the past 12 months has [employer] electric, gas, oil, or water [employer] threatened to shut off services in your [...] often do you attend chur ch or buddhism services? More than 4 times per year 02/27/2022 Do you belong to any clubs o r organizations such as rastafari groups, unions, fraternal or athletic groups, or [...] Answer Date Recorded Total Score 0 08/10/2024 [facility] [place] of Occupat ional Health - Occupational Stress [...] AM EDT Your surgery/procedure is scheduled at [facility] on 08/12/24 at 8:00 Arrival Time 6:00 [facility] Address: [address] [place] [address], [address] [place] [address] in the Emergency Center Parking lot. Report to the senior front end developer in the Emergency/Surgery Registration lobby of the hospital. Notify your SURGEON if you develop any illness such as a cold, cough, fever, sore throat, vomiting or are hospitalized between now and your surgery. Please call Pre-Admission Clinic at [phone] if you have any questions prior to surgery. For questions the morning of surgery, call the Pre-op Department at [phone]. Medication Instructions (Do not stop your medications [...] would like to schedule therapy at a [facility] Rehab facility, please call [phone] ([phone]). Do not use lotions, creams, powders, perfume, make up, cologne or after-shaves day of surgery. Remove ALL jewelry including wedding rings, body piercings, hair extensions that contain metal, nail arabic, make-up, and contact lens. You may brush [...] pets in your bed. Please be advised, [facility] has transitioned to a cashless [...] RIGHTS AND RESPONSIBILITIES As a patient at [facility], you have the right to: Receive medical care and be informed of who is taking care of you Be treated with dignity and respect Have a family member/customer service representative teller of choice and your physician notified of your admission Receive information and actively participate in decisions about your care and treatment Refuse care, treatment and services Decide who may provide your support and speak for you Access buddhism and spiritual services Participate in ethical issues [...] of hospital charges and payment methods Patient/patient customer service representative teller responsibilities are to: Provide information about health [...] Description 08/29/2024 9:30 AM EDT Office Visit [facility] Physicians Plastic and Reconstructive Surgery [facility] [address] [facility] [address] [place] [address] Shereen Smallwood PA-C [address] [facility], [facility] [address] [place] [address] 10/26/2024 8:30 AM EDT Telephone Visit [facility] Gynecology Oncology, A Department of [facility] [address] [facility] [address] [facility] [place] [address] Raymond Sepulveda MD [address] [facility], [address] [place] [address] documented as of this encounter Goals Goal Patient Goal Type Associated Problems Recent Progress Patient-Stated? Author return home General Yes Mariah Gonsalez, RN Note: Evaluation of progress towards goal: progressing, patient will return home at discharge/follow up [facility] Wound care clinic Autogenerated Goal Care Plan Autogenerated Problem No Skyla Marie documented as of this encounter Visit Diagnoses Not on filedocumented in this encounter Additional Health Concerns Active Problems Noted Date Diagnosed Date Autogenerated Problem 08/09/2024 Assessment Noted Time PHQ-9 Depression Total Score: 0 08/11/19 25 3:50 PM EDT documented as of this encounter Care Teams Summer Internship Relationship Specialty Start Date End Date Amy Collier, DIE EQUIPMENT OPERATOR-BURNER TENDER [address] [place] [address] PCP - General 11/28/16 documented as of this encounter
--- OUTSIDE RECORDS SUMMARY | 2024-08-12 06:02 | XMS_ITS | Encounter Summary ---
Author Organization [facility] tem Address [id number] [address] [place] [address] Care Team Providers Care Hand Woodworking Sander Name Role Phone Amy Collier WIRE INSERTER-CONVERSION MAN Primary Care Provider + Reason for Visit * Auth/Cert Specialty Diagnoses / Procedures Referred By Jose t Referred To Contact Diagnoses LEFT AXILLA WOUND Procedures DEBRIDEMENT BREAST- AXILLA Jhon Rosado MD [address], [facility] [address] [place] [address] Phone: tel: fax: Referral ID Status Reason Start Date Expiration Date Visits Re quested Visits Authorized [id number] 1 1 Encounter Details Date Type Department Care Team (Late st Contact Info) Description 08/12/2024 6:02 AM EDT - 08/12/2024 12:17 PM EDT Hospital Encounter [facility] - Surgery [address] [place] [address] Jhon Rosado MD [address], [facility] [address] [place] [address] Discharge Disposition: Home Social History Tobacco Use Types Packs/Day Years Used Date Smoking Tobacco: Never Passive Smoke Exposure: Past Smokeless Tobacco: Never Alcohol Use Standard Drinks/Week Comments Not Currently 0 (1 standard drink = 0.6 oz pur e alcohol) [facility] Utilities Answer Date Recorded In the past 12 months has [employer] electric, gas, oil, or water company threatened [...] often do you attend chur ch or jehovah's witness services? More than 4 times per year 02/27/2022 Do you belong to any clubs o r organizations such as mandaen groups, unions, fraternal or athletic groups, or [...] Answer Date Recorded Total Score 0 08/10/2024 [facility] - Occupational Stress [...] Recorded Do you need help finding a [employer] career center and/or a training program? No [...] - 08/12/2024 10:50 AM EDT [facility] Plastic & Reconstructive Surgery [place] [address] [place] [id number] Office Jhon Rosado MD, PhD Marisela Davila, WIRE INSERTER-CONVERSION MAN Shereen Smallwood PA-C Plastic Surgery Discharge Instructions Okay to resume a regular diet. Continue wound care and antibiotics as previously scheduled. Please take [id number] Tylenol or Motrin for baseline pain control. [...] tolerated. Jhon Rosado MD, PhD [facility] Plastic & Reconstructive Surgery If you [...] AND PHYSICAL INTERVAL NOTE: Yasmin Flannery 1970 [id number] H&P reviewed. The patient was examined and there are no changes to the H&P. My operative plan for today is repeat debridement of left chest wall wound and Mycobacterium infection. Jhon Rosado MD, PhD Source Note - Shereen Smallwood PA-C - 07/29/2024 10:41 AM EDT [facility] Plastic & Reconstructive Surgery [facility] [address] [place] [id number] Office Jhon Rosado MD, PhD Marisela Davila [...] Date/Time AFB culture concentrated includes AFB smear [[id number]] Collected: 07/27/24 1505 Specimen: Tissue from Breast, Left Updated: 07/28/24 1103 AFB SMEAR No Acid Fast Bacili (Concentrated Smear) AFB culture concentrated includes AFB smear [[id number]] Collected: 07/27/24 1503 Specimen: Tissue from Breast, [...] compliance with treatment. INÉS PAYNE MD, PhD 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; history of right breast cancer status post bilateral mastectomies and tissue miter cutter reconstruction; history of radiation therapy to right chest wall; chronic kidney disease; chronic anemia Procedure Performed: Excisional debridement of left chest wall wound including nonviable skin, subcutaneous tissue, fascia, cicatrix, granulation tissue and chronic granulomatous material associated with known Mycobacterium abscessus infection (15 x 23 cm) Attending Surgeon: Jhon Rosado MD, PhD Harvest Contractor Surgeon: Mary Steiner RN Obdulia was the heel sprayer first on this case as no other qualified person was available. The assistant women's rowing coach provided exposure, retraction, hemostasis, dissection and expedited [...] cancer status post bilateral mastectomies and tissue miter cutter allison nstruction. She completed postmastectomy radiation therapy to her right chest wall. Secondary to her mycobacterium infection, her left breast tissue miter cutter had to be previously removed along with [...] The patient's left chest wall and upper abdome n were prepped and draped in the usual sterile fashion. A robust surgical time- out was completed verifying the correct patient, site [...] - Primary Assistants: Mary Steiner RN Staff: School Childcare Attendant Primary: Susan Fierro RN Scrub Person: [employer] Childcare Attendant Secondary: Mary Steiner RN Pre-op Diagnosis: LEFT [...] 9:30 AM EDT Office Visit [facility] Plastic and Reconstructive Surgery [address] [facility] [address] [place] [address] Shereen Smallwood PA-C [address] [facility], [facility] [address] [place] [address] 10/26/2024 8:30 AM EDT Telephone Visit [facility] Gynecology Oncology, A Department of [facility] [address] [facility] [address] [place] [id number] [place] [address] [place] [address], [address] [place] [address] Pending Results Name Type Priority Associated Diagnoses Date /Time Fungal culture includes fungal smear Microbiology Routine 08/12/2024 10:40 AM EDT documented as of this encounter Goals Goal Patient Goal Type Associated Problems Recent Progress Patient-Stated? Author return home General Yes Mariah Gonsalez, OC Note: Evaluation of progress towards goal: progressing, patient will return home at discharge/follow up [facility] Autogenerated Goal Care Plan [...] Resistant Pseudomonas aeruginosa(A) 08/16/2024 9:32 AM EDT [facility] GRAM STAIN 0 White Blood Cells/LPF 08/16/2024 9:32 AM EDT [facility] GRAM STAIN 0 Squamous Epithelial Cells/LPF 08/16/2024 9:32 AM EDT [facility] GRAM STAIN No organisms seen 08/16/2024 9:32 AM EDT [facility] Tissue (Chest Wall, Left) 08/12/2024 10:40 AM EDT 08/12/2024 11:31 AM EDT Comment:Pre-op diagnosis: LEFT AXILLA WOUND Narrative [facility] - 08/16/2024 9:32 AM EDT Growth [...] KPC (CARBAPENEMASE) Negative Carbapenem Resistant Pseudomonas aeruginosa [id number] (CARBAPENEMASE) Negative Carbapenem Resistant Pseudomonas aeruginosa VIM (CARBAPENEMASE) Negative Carbapenem Resistant Pseudomonas aeruginosa IMP (CARBAPENEMASE) Negative Carbapenem Resistant Pseudomonas aeruginosa NDM (CARBAPENEMASE) Negative Comment:Carbapenem Resistant Organism (CHAPLAIN RESIDENT). The CARBA5 test only detects the 5 most prevalent carbapenemase producing mechanisms in the [place] Other carbapenemase producing mechanisms not detected by this test are rare. us Jhon Rosado MD MICROBIOLOGY - [employer] ORDERABLES Final Result Performing Organization Address City/[facility]/ZIP Co de Phone Number [facility] [address] [place] [address], * Anaerobic culture (08/12/2024 10:40 AM EDT) CULTURE RESULTS NO GROWTH 5 DAYS 08/17/2024 7:01 AM EDT [facility] Tissue (Chest Wall, Left) 08/12/2024 10:40 AM EDT 08/12/2024 11:31 AM EDT Comment:Pre-op diagnosis: LEFT AXILLA WOUND Jhon Rosado MD MICROBIOLOGY - [employer] ORDERABLES Final Result Performing Organization Address City/[facility] Co de Phone Number [facility] [address] [place] [address], documented in this encounter Visit Diagnoses Not [...] Practice Guidelines? Yes lidocaine-EPINEPHrine (XYLOCAINE W/EPI) 1 %-1:794103 injection (CANCELED) As needed, Starting on Thu08/12/24 [...] Intra-op 1026 (Given - Provid er: Jhon Rsoado MD) Linked Groups Order Group 1: fentaNYL [...] documented as of this encounter Care Teams Hand Woodworking Sander Relationship Specialty Start Date End Date Amy Collier, WIRE INSERTER-CONVERSION MAN [address] [place] [address] PCP - General 11/28/16 documented as of this encounter
--- OUTSIDE RECORDS SUMMARY | 2024-08-12 09:10 | XMS_ITS | Encounter Summary ---
Author Organization [facility] tem Address [id number] [address] [place] [address] Care Team Providers Care Log Stacker Operator Name Role Phone Amy Collier MANAGER CANCER-KNOCKER OUT Primary Care Provider + Reason for Visit * Auth/Cert Specialty Diagnoses / Procedures Referred By Jose t Referred To Contact Diagnoses LEFT AXILLA WOUND Procedures DEBRIDEMENT BREAST- AXILLA Jhon Rosado MD [address], [facility] [address] [place] [address] Phone: tel: fax: Referral ID Status Reason Start Date Expiration Date Visits Re quested Visits Authorized [id number] 1 1 Encounter Details Date Type Department Care Team (Late st Contact Info) Description 08/12/2024 9:10 AM EDT - 08/12/2024 10:40 AM EDT Surgery [facility] a Division of [facility] - Surgery [address] [place] [address] Jhon Rosado MD [address], [facility] [address] [place] [address] DEBRIDEMENT LEFT CHEST WALL WOUND Surgery Details Date/Time Status Location OR Service Patient Class Case Cl ass Case Type Trauma Case? 08/12/2024 9:10 AM Posted [facility] OR [address] [place] [address] Outpatient Surgery Elective Panel 1 Procedure LRB [...] drink = 0.6 oz pur e alcohol) [facility] Utilities Answer Date Recorded In the past [...] often do you attend chur ch or denominational services? More than 4 times per year 02/27/2022 Do you belong to any clubs o r organizations such as anabaptist groups, unions, fraternal or athletic groups, or [...] Answer Date Recorded Total Score 0 08/10/2024 [facility] of Occupat ional Health - Occupational Stress [...] Recorded Do you need help finding a [facility] and/or a training program? No 02/27/2022 [...] Newton RN - 08/12/2024 10:50 AM EDT [facility] Plastic & Reconstructive Surgery [address] [place] [id number] Office Jhon Rosado MD, PhD Marisela Davila APRN-ESPERANZA Smallwood PA-C Plastic Surgery Discharge Instructions Okay to resume a regular diet. Continue wound care and antibiotics as previously scheduled. Please take qnxi-zxy-[id number] Tylenol or Motrin for baseline pain control. You already have a prescription for narcotic pain medication (oxycodone) at home to be used for any breakthrough pain, if needed. Okay to apply ice to your surgical site for comfort, if needed. Okay to shower tomorrow, but no tub soaking or swimming until your wound is fully healed. Activity as tolerated. Jhon Rosado MD, PhD [facility] Plastic & Reconstructive Surgery If you had [...] AND PHYSICAL INTERVAL NOTE: Yasmin Flannery 1970 [id number] H&P reviewed. The patient was examined and there are no changes to the H&P. My operative plan for today is repeat debridement of left chest wall wound and Mycobacterium infection. Jhon Rosado MD, PhD Source Note - Shereen Smallwood PA-C - 07/29/2024 10:41 AM EDT [facility] Plastic [facility] Reconstructive Surgery [address] [place] [id number] Office Jhon Rosado MD, PhD Marisela Davila APRN-KNOCKER OUT Shereen Smallwood PA-C Plastic Surgery Inpatient Progress [...] Date/Time AFB culture concentrated includes AFB smear [[id number]] Collected: 07/27/24 1505 Specimen: Tissue from Breast, Left Updated: 07/28/24 1103 AFB SMEAR No Acid Fast Bacili (Concentrated Smear) AFB culture concentrated includes AFB smear [[id number]] Collected: 07/27/24 1503 Specimen: Tissue from Breast, [...] cancer status post bilateral mastectomies and tissue physical meteorologist reconstruction; history of radiation therapy to right chest wall; chronic kidney disease; chronic anemia Postoperative Diagnoses: 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; history of right breast cancer status post bilateral mastectomies and tissue physical meteorologist reconstruction; history of radiation therapy to right chest wall; chronic kidney disease; chronic anemia Procedure Performed: Excisional debridement of left chest wall wound including nonviable skin, subcutaneous tissue, fascia, cicatrix, granulation tissue and chronic granulomatous material associated with 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 The assistant office manager provided exposure, retraction, hemostasis, dissection and expedited [...] cancer status post bilateral mastectomies and tissue physical meteorologist allison nstruction. She completed postmastectomy radiation therapy to her right chest wall. Secondary to her mycobacterium infection, her left breast tissue physical meteorologist had to be previously removed along with [...] - Primary Assistants: Mary Steiner RN Staff: Geodetic Technician Primary: Susan Fierro RN Scrub Person: ST Weston Geodetic Technician Secondary: Mary Steiner RN Pre-op Diagnosis: LEFT [...] Description 08/29/2024 9:30 AM EDT Office Visit [facility] [address] [facility] [address] [place] [address] Shereen Smallwood PA-C [address], [facility] [address] [facility] [place] [address] 10/26/2024 8:30 AM EDT Telephone Visit [facility] Gynecology Oncology, A Department of [facility] [address] [facility] [address] [facility] [place] [address] Raymond Sepulveda MD [address] [facility], [address] [place] [address] Pending Results Name Type Priority Associated Diagnoses Date /Time Fungal culture includes fungal smear Microbiology Routine 08/12/2024 10:40 AM EDT documented as of this encounter Goals Goal Patient Goal Type Associated Problems Recent Progress Patient-Stated? Author return home General Yes Mariah Gonsalez, RN Note: Evaluation of progress towards goal: progressing, patient will return home at discharge/follow up [facility] Wound care clinic Autogenerated Goal Care Plan [...] Resistant Pseudomonas aeruginosa(A) 08/16/2024 9:32 AM EDT [facility] GRAM STAIN 0 White Blood Cells/LPF 08/16/2024 9:32 AM EDT [facility] GRAM STAIN 0 Squamous Epithelial Cells/LPF 08/16/2024 9:32 AM EDT [facility] GRAM STAIN No organisms seen 08/16/2024 9:32 AM EDT [facility] Tissue (Chest Wall, Left) 08/12/2024 10:40 AM EDT 08/12/2024 11:31 AM EDT Comment:Pre-op diagnosis: LEFT AXILLA WOUND Narrative [facility] - 08/16/2024 9:32 AM EDT [...] KPC (CARBAPENEMASE) Negative Carbapenem Resistant Pseudomonas aeruginosa [id number] (CARBAPENEMASE) Negative Carbapenem Resistant Pseudomonas aeruginosa VIM (CARBAPENEMASE) Negative Carbapenem Resistant Pseudomonas aeruginosa IMP (CARBAPENEMASE) Negative Carbapenem Resistant Pseudomonas aeruginosa NDM (CARBAPENEMASE) Negative Comment:Carbapenem Resistant Organism (EDITOR CONTINUITY AND SCRIPT). The CARBA5 test only detects the 5 most prevalent carbapenemase producing mechanisms in the [place] Other carbapenemase producing mechanisms not detected by this test are rare. us Jhon Rosado MD MICROBIOLOGY - Music Dealers L ORDERABLES Final Result [facility] [address] [place] [address], [place] [phone] * Anaerobic culture (08/12/2024 10:40 AM EDT) CULTURE RESULTS NO GROWTH 5 DAYS 08/17/2024 7:01 AM EDT [facility] Tissue (Chest Wall, Left) 08/12/2024 10:40 AM EDT 08/12/2024 11:31 AM EDT Comment:Pre-op diagnosis: LEFT AXILLA WOUND us Jhon Rosado MD MICROBIOLOGY - Music Dealers L ORDERABLES Final Result Performing Organization Address City/[facility]/ZIP Co de Phone Number [facility] [address] [place] [address], [place] [phone] documented in this encounter Visit Diagnoses Not [...] mL/hr 100 mL/hr lidocaine-EPINEPHrine (XYLOCAINE W/EPI) 1 %-1:940528 injection As needed, Starting on Thu08/12/24 at [...] Practice Guidelines? Yes lidocaine-EPINEPHrine (XYLOCAINE W/EPI) 1 %-1:962260 injection (CANCELED) As needed, Starting on Thu08/12/24 [...] documented as of this encounter Care Teams Log Stacker Operator Relationship Specialty Start Date End Date Amy Collier APRN-KNOCKER OUT [address] [place], [place] [address] [address] PCP - General 11/28/16 documented as of this encounter
--- OUTSIDE RECORDS SUMMARY | 2024-08-12 10:21 | XMS_ITS | Encounter Summary ---
Author Organization [facility] tem Address [facility] [id number] [address] [place] [address] Care Team Providers Care Engineer Byproduct Name Role Phone Amy Collier RECYCLING PROGRAM MANAGER-BULB ASSEMBLER Primary Care Provider + Reason for Visit * Auth/Cert Specialty Diagnoses / Procedures Referred By Jose t Referred To Contact Diagnoses LEFT AXILLA WOUND Procedures DEBRIDEMENT BREAST- AXILLA Jhon Rosado MD [address] [facility] , [address] [address] Phone: tel: fax: Referral ID Status Reason Start Date Expiration Date Visits Re quested Visits Authorized [id number] 1 1 Encounter Details Date Type Department Care Team (Late st Contact Info) Description 08/12/2024 10:21 AM EDT Anesthesia Event [facility] Division of [facility] - Surgery [address] [place] [phone] Vaibhav Nicholson MD [address] [place] [address] Leonela Rusty, TREVA Anesthesia Record Procedure Summary Procedure Name [...] BULKEE SUP CTTN ABS LF STRL RPL [id number] (x1), PAD ABD 9X5IN ABS NWVN HDRPHB BCK SL EDG CLU STRL LF RPL [id number] (x2) 06/13/24 1739 by Ninfa Tejeda RN documented in this encounter Social History Tobacco Use Types Packs/Day Years Used Date Smoking Tobacco: Never Passive Smoke Exposure: Past Smokeless Tobacco: Never Alcohol Use Standard Drinks/Week Comments Not Currently 0 (1 standard drink = 0.6 oz pur e alcohol) [facility] Utilities Answer Date Recorded In the past 12 months has [employer], gas, oil, or water [email or web address] threatened to shut off services in your [...] often do you attend chur ch or baptist services? More than 4 times per year 02/27/2022 Do you belong to any clubs o r organizations such as jew groups, unions, fraternal [...] Answer Date Recorded Total Score 0 08/10/2024 [facility] of Occupat ional Health - Occupational [...] Recorded Do you need help finding a [facility] career center and/or a training program? [...] - 08/12/2024 10:58 AM EDT ANESTHESIA POST-EVALUATION [facility] Procedure Summary Date: 08/12/24 Room / Location: [facility] OR SURGERY Anesthesia Start: 1021 Anesthesia Stop: [...] note were not included. ANESTHESIA PRE-PROCEDURE EVALUATION [facility] Procedure(s): DEBRIDEMENT BREAST- AXILLA ANESTHESIA PHYSICAL EXAM Patient summary reviewed and nursing notes reviewed. Airway Mallampati: II TM distance: >3 FB Neck ROM: full Dental Pulmonary Cardiovascular ECG reviewed Rhythm: Regular Rate: Normal Abdominal Other Findings Past Medical History: No date: MIRNA (acute kidney injury) Comment: from vancomycin 2023: Breast cancer ([facility]) Comment: chemo, surgery, radation, oral chemo No date: Breast wound Comment: left 09/18/2023: Deep vein thrombosis ([facility]) Comment: Left calf No date: Dental disease [...] Description 08/29/2024 9:30 AM EDT Office Visit [facility] Physicians Plastic and Reconstructive Surgery [address] [place] [address] [address] [place] [address] Shereen Smallwood, PANicolasC [address] [place] [address], [facility] [address] [place] [address] 10/26/2024 8:30 AM EDT [facility]phone [facility] Gy[facility] Oncology, A Department of [address] [facility] [address] [place] [address] [place] [address] [place] [address], [address] [place], [place] [phone] documented as of this encounter Goals Goal Patient Goal Type Associated Problems Recent Progress Patient-Stated? Author return home General Yes Mariah Gonsalez, RN Note: Evaluation of progress towards goal: progressing, patient will return home at discharge/follow up [facility] Wound care clinic Autogenerated Goal Care Plan [...] documented as of this encounter Care Teams Engineer Byproduct Relationship Specialty Start Date End Date Amy Collier, RECYCLING PROGRAM MANAGER-BULB ASSEMBLER [address] [place] [address] PCP - General 11/28/16 documented as of this encounter
--- OUTSIDE RECORDS SUMMARY | 2024-08-16 06:30 | XMS_ITS ---
Author Organization [facility] [place] Address [address] [place] [place] [address] Care Team Providers Care Engine Assembly Supervisor Name Role Phone Lynda Lawson Primary Care Provider UnavailJessica Lala Unavailable [phone] REASON FOR VISIT MD Encounters Encounter Location Date Provider Diagnosis [facility] Oncology [address] [place] [phone] 08/16/2024 Jessica Hope Plan Of Treatment Next Appt Details Provider Name:Jessica Hope , 09/06/2024 10:15:00 AM, [address] [place], [address], Progress Notes * Yasmin FLANNERY ADOB:[birth year] (53 yo F)Acc No.[id number]:08/16/2024 UNLOCKED PROGRESS NOTE Progress Notes Patient: Yasmin KHALIL Provider: Yumi Hope M.D. :1970 A ge:53 Y S ex:Female Date:08/16/2024 Address:[address] [place] , [phone] Pcp:GUY Wilson Subjective: * Chief Complaints: * 1 . MD. * Medical History: Objective: * Vitals: Assessment: Plan: * Treatment: * * Electronic signature of Parisa Hope MD, [phone] on 08/25/2024 at 08:11 AM EDT Sign off status: Pending Visit Status: Jamal CASTILLO (Voice) * Provider: Yumi Hope M.D. Date: 0 08/16/2024 Generated for Abby stewart/Danni/Sujata on: 0 08/25/2024 08:11 AM EDT
--- OUTSIDE RECORDS SUMMARY | 2024-08-18 15:30 | XMS_ITS | Encounter Summary ---
Author Organization [facility] tem Address [id number] [address] [place] [address] Care Team Providers Care Portable Sawyer Name Role Phone Amy Collier SPEECH PATHOLOGY TEACHER-STEM TEACHER Primary Care Provider + Reason for Visit * Reason Comments Post-op Encounter Details Date Type Department Care Team (Late st Contact Info) Description 08/18/2024 3:30 PM EDT Office Visit [facility] Physicians Plastic and Reconstructive Surgery [address] [place] [address] Shereen Smallwood PA-C [address] [place] [address] Social History Tobacco Use Types Packs/Day Years Used Date Smoking Tobacco: Never Passive Smoke Exposure: Past Smokeless Tobacco: Never Alcohol Use Standard Drinks/Week Comments Not Currently 0 (1 standard drink = 0.6 oz pur e alcohol) [facility] Utilities Answer Date Recorded In the past 12 months has [employer], oil, or water [employer] threatened to shut off services in your [...] How often do you attend chur or jain services? More than 4 times per year 02/27/2022 Do you belong to any clubs o r organizations such as hoahaoism groups, unions, fraternal [...] Answer Date Recorded Total Score 0 08/10/2024 [facility] of Occupat ional Health - Occupational [...] Recorded Do you need help finding a [facility] career center and/or a training program? [...] Description 08/29/2024 9:30 AM EDT Office Visit [facility] Physicians Plastic and Reconstructive Surgery [facility] [address] [email or web address] [address] [place] [address] Shereen Smallwood PA-C [address] [place] [address] 10/26/2024 8:30 AM EDT Telephone Visit [facility] Gynecology Oncology, A Department of [place] [address] [address] [facility] [place] [address] [place] [address] [place] [address], [address] [place] [address] documented as of this encounter Goals Goal Patient Goal Type Associated Problems Recent Progress Patient-Stated? Author return home General Yes Mariah Gonsalez, RN Note: Evaluation of progress towards goal: progressing, patient will return home at discharge/follow up [facility] Wound care clinic Autogenerated Goal Care Plan Autogenerated Problem No Skyla Marie documented as of this encounter Visit Diagnoses Not on filedocumented in this encounter Additional Health Concerns Active Problems Noted Date Diagnosed Date Autogenerated Problem 08/09/2024 Assessment Noted Time PHQ-9 Depression Total Score: 0 08/11/19 25 3:50 PM EDT documented as of this encounter Care Teams Portable Sawyer Relationship Specialty Start Date End Date Amy Collier, SPEECH PATHOLOGY TEACHER-STEM TEACHER [address] [place] [address] PCP - General 11/28/16 documented as of this encounter
[2024-08-25 13:58] VITALS: BP 140/92; PULSE 72; TEMP 36.9; O2SAT 97; BMI 28.0
--- OUTSIDE RECORDS SUMMARY | 2024-08-25 14:02 | XMS_ITS | Encounter Summary ---
Author Organization [employer] Sys tem Address [id number] [address] [place] [address] Care Team Providers Care Weigher Alloy Name Role Phone Amy Collier SUPERVISOR COIN MACHINE-CRTT Primary Care Provider + Encounter Details Date Type Department Care Team (Late st Contact Info) Description 06/20/2024 Telephone [facility] Internal Medicine - Family Medicine [address] [place] [phone] Kodi Monteiro CMA Social History Tobacco Use Types Packs/Day Years Used Date Smoking Tobacco: Never Passive Smoke Exposure: Past Smokeless Tobacco: Never Alcohol Use Standard Drinks/Week Comments Yes 0 (1 standard drink = 0.6 oz pur e alcohol) Socially [facility] Utilities Answer Date Recorded In the past 12 months has [employer], gas, oil, or water company threatened [...] often do you attend chur ch or zoroastrianism services? More than 4 times [...] Answer Date Recorded Total Score 2 03/30/2024 [facility] of Occupat ional Health - Occupational Stress [...] 08/29/2024 9:30 AM EDT Office Visit [facility] Physicians Plastic and Reconstructive Surgery [address] [facility] [address] [place] [address] Shereen Smallwood, PANicolasC [address] [facility] [address], [facility] [address] [place] [address] 10/26/2024 8:30 AM EDT Telephone Visit [facility] Gynecology Oncology, A Department of [facility] [address] [place] [address] Raymond Sepulveda MD [address] [facility], [address] [place] [address] documented as of this encounter Goals Goal Patient Goal Type Associated Problems Recent Progress Patient-Stated? Author return home General Yes Mariah Gonsalez, RN Note: Evaluation of progress towards goal: progressing, patient will return home at discharge/follow up [facility] documented as of this encounter Visit Diagnoses Not on filedocumented in this encounter Additional Health Concerns Assessment Noted Time PHQ-9 Depression Total Score: 2 03/30/19 25 3:58 PM EST documented as of this encounter Care Teams Weigher Alloy Relationship Specialty Start Date End Date Amy Collier APRN-CRTT [address] [place] [address] PCP - General 11/28/16 documented as of this encounter
--- OUTSIDE RECORDS SUMMARY | 2024-08-25 14:02 | XMS_ITS | Encounter Summary ---
Author Organization [employer] Sys tem Address [id number] [address] [place] [address] Care Team Providers Care Rag Production Worker Name Role Phone Amy Collier TRAFFIC RATE ANALYST-[employer] TICKET SALES Primary Care Provider + Encounter Details Date Type Department Care Team (Late st Contact Info) Description 12/02/2023 Telephone [facility] Infectious Disease [address] [facility] [address] [place] [address] Shy Bob MA Social History Tobacco Use Types Packs/Day Years Used Date Smoking Tobacco: Never Smokeless Tobacco: Never Alcohol Use Standard Drinks/Week Comments Yes 0 (1 standard drink = 0.6 oz pur e alcohol) Socially [facility] Utilities Answer Date Recorded In the past 12 months has [employer], gas, oil, or water company threatened [...] Answer Date Recorded Total Score 0 03/07/2022 [facility] [place] of Occupat ional Health - Occupational Stress [...] outpatient referral A new outpatient referral for [facility] infectious Disease was placed for this patientwhile she was hospitalized. According to the operations planner they called to make appointment and was told that [facility] patient. Patient has not heard anything from them. 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 Can someone please reach out to [facility] ID and see if we can get [...] referral I would like referrals sent to [facility] and [facility] as well. I will place in [facility] ----- Message ----- From: Nabila Mora CMA Sent: 12/02/2023 3:11 PM EDT To: AMEENA Gomez; # Subject: RE: outpatient referral Wendy philip, Referrals to [facility] & [facility] take 7-10 business days to receive [...] outpatient referral A new outpatient referral for [facility] infectious Disease was placed for this patientwhile she was hospitalized. According to the operations planner they called to make appointment and was told that [facility] patient. Patient has not heard anything from them. 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 Can someone please reach out to [facility] ID and see if we can get her an appointment next week? The referral is in [facility]. Thank you. Adding Leelee smith awareness * Telephone Encounter - Shy Bob MA - 12/02/2023 3:08 PM EDT Referral faxed to [facility]. They are scheduling for December/January, if they have any cancellations they will call patient. Faxed referral to [phone] * Telephone Encounter - Nabila Mora CMA - 12/02/2023 3:08 PM EDT Referral & copy of insurance card faxed to [facility] as well & I called personally to [facility] ([phone]) to [address] urgent referral-- spoke to Paul [...] the patient to schedule. Copy of paper [facility] referral form will be scanned into media. * Telephone Encounter - Shy Bob MA - 12/02/2023 3:08 PM EDT [facility] is not able to see patient due to insurance out of network. Patient was notified per [facility]. * Telephone Encounter - AMEENA Vallejo - 12/02/2023 3:08 PM EDT I spoke with patient and she would like referral to [facility]. I am placing in [employer] now. Thanks for your help on this! * Telephone Encounter - Nabila Mora CMA - 12/02/2023 3:08 PM EDT [facility] requires their own form to be completed-- I have printed this off, and it does also require a signature as well--placed on Meme's desk. Refer a patient by paper form Fill out and fax the referral form and clinical documentation to: For referrals to [facility], fax to [phone]. For referrals to the [facility], fax to [phone]. After we have received your fax, we will contact your patient directly to schedule a convenient time and location for his or her appointment. We will send you confirmation of your patient???s appointment for your records. For referrals to [facility], fax to [phone]. If urgent, after faxing, call [phone] to expedite order make up clerk. For referrals to the [facility] and [facility], fax to [phone]. If urgent, call [facility] at to expedite. * Telephone Encounter - Shy Bob MA - 12/02/2023 3:08 PM EDT Referral signed and faxed. * Telephone Encounter - Shy Bob MA - 12/02/2023 3:08 PM EDT ----- Message from AMEENA Vallejo sent at 12/08/2023 10:37 AM EDT ----- Regarding: RE: outpatient referral Can we please send referral to [facility] ID physician Dr. Cortez [place]. I will put order in. Dr. Noguera would like her to be seen as soon as possible. Thx. ----- Message ----- From: Nabila Mora CMA Sent: 12/02/2023 3:11 PM EDT To: AMEENA Gomez; # Subject: RE: outpatient referral Wendy philip, Referrals to [facility] & [facility] take 7-10 business days to receive [...] outpatient referral A new outpatient referral for [facility] infectious Disease was placed for this patientwhile she was hospitalized. According to the operations planner they called to make appointment and was told that [facility] call patient. Patient has not heard anything from them. 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 Can someone please reach out to [facility] ID and see if we can get her an appointment next week? The referral is in [facility]. Thank you. Adding Leelee for awareness * Telephone Encounter - Shy Bob MA - 12/02/2023 3:08 PM EDT Referral faxed to [place], will call to verify documented in this encounter Plan of Treatment Upcoming Encounters Date Type Department Care Team (Late st Contact Info) Description 08/29/2024 9:30 AM EDT Office Visit [facility] Physicians Plastic and Reconstructive Surgery [address] [place] [address] Shereen Smallwood PA-C [address], [address] [facility] [place] [place] [address] 10/26/2024 8:30 AM EDT Telephone Visit [facility] Gynecology Oncology, A Department of [facility] [place] [address] Raymond Sepulveda MD [address] [facility], [address] [place] [address] documented as of this encounter Visit Diagnoses Not on filedocumented in this encounter Additional Health Concerns Assessment Noted Time PHQ-9 Depression Total Score: 0 03/07/19 23 11:14 AM EST documented as of this encounter Care Teams Rag Production Worker Relationship Specialty Start Date End Date Amy Collier, TRAFFIC RATE ANALYST-[employer]OR [employer] TICKET SALES [address] [place] [address] PCP - General 11/28/16 documented as of this encounter
--- OUTSIDE RECORDS SUMMARY | 2024-08-25 14:02 | XMS_ITS | Encounter Summary ---
Author Organization [facility] Address [id number] [address] [place] [address] Care Team Providers Care Glost Placer Name Role Phone Amy Collier HOUSEHOLD ASSISTANT-FLYING SQUAD SALESPERSON Primary Care Provider + Encounter Details Date Type Department Care Team (Late st Contact Info) Description 01/15/2024 Orders Only [facility] Infectious Disease [address] [facility] [address] [place] [address] External, Scanning Provider Social History Tobacco Use Types Packs/Day Years Used Date Smoking Tobacco: Never Smokeless Tobacco: Never Alcohol Use Standard Drinks/Week Comments Yes 0 (1 standard drink = 0.6 oz pur e alcohol) Socially [facility] Utilities Answer Date Recorded In the past 12 months has [employer], gas, oil, or water company threatened [...] often do you attend chur ch or samaritan services? More than 4 times per year [...] Answer Date Recorded Total Score 0 03/07/2022 [facility] of Occupat ional Health - Occupational Stress [...] Description 08/29/2024 9:30 AM EDT Office Visit [facility] Physicians Plastic and Reconstructive Surgery [address] [place] [address] [address] [place] [address] Shereen Smallwood PA-C [address] [facility] [address] [place] [address] 10/26/2024 8:30 AM EDT Telephone Visit [facility] Gynecology Oncology, A Department of [address] [place] [address] [place] [address] [place] [address], [address] [place], [place] [phone] documented as of this encounter Procedures Procedure Name Priority Date/Time Associated Diagnosis Comments PLATELET COUNT Routine 01/14/2024 WBC Routine 01/14/2024 CREATININE, SERUM Routine 01/14/2024 documented in this encounter Results * Platelet count (01/14/2024) External Platelet Count 181 MANUALLY TRANSCRIBED RESULTS Blood 01/14/2024 us Scanning Provider External LAB BLOOD ORDERABLES Final Result Performing Organization Address [facility] de Phone Number MANUALLY TRANSCRIBED RESULTS * (ABNORMAL) WBC (01/14/2024) External Wbc Count 3.8(A) 4.0 - 11.0 MANUALLY TRANSCRIBED RESULTS Blood 01/14/2024 us Scanning Provider External LAB BLOOD ORDERABLES Final Result Performing Organization Address [facility] de Phone Number MANUALLY TRANSCRIBED RESULTS * (ABNORMAL) Creatinine includes GFR, serum (01/14/2024) External Creatinine 1.12(A) 0.55 - 1.02 MANUALLY TRANSCRIBED RESULTS Blood 01/14/2024 us Scanning Provider External LAB BLOOD ORDERABLES Final Result Performing Organization Address [facility] de Phone Number MANUALLY TRANSCRIBED RESULTS documented in this encounter Visit Diagnoses Not on filedocumented in this encounter Additional Health Concerns Assessment Noted Time PHQ-9 Depression Total Score: 0 03/07/19 23 11:14 AM EST documented as of this encounter Care Teams Glost Placer Relationship Specialty Start Date End Date Amy Collier APRN-FLYING SQUAD SALESPERSON [address] [place] [address] PCP - General 11/28/16 documented as of this encounter
--- OUTSIDE RECORDS SUMMARY | 2024-08-25 14:02 | XMS_ITS | Encounter Summary ---
Author Organization [employer] Sys tem Address [id number] [address] [place] [address] Care Team Providers Care Education Managers Name Role Phone Amy Collier BESSEMER REGULATOR-INSTRUCTIONAL COACH Primary Care Provider + Encounter Details Date Type Department Care Team (Late st Contact Info) Description 11/30/2023 [facility]phone [facility] [address] [facility] [address] [place] [address] Shy Bob MA Social History Tobacco Use Types Packs/Day Years Used Date Smoking Tobacco: Never Smokeless Tobacco: Never Alcohol Use Standard Drinks/Week Comments Yes 0 (1 standard drink = 0.6 oz pur e alcohol) Socially [facility] Utilities Answer Date Recorded In the past 12 months has [email or web address] electric, gas, oil, or water company threatened [...] often do you attend chur ch or temple services? More than 4 times per year [...] Answer Date Recorded Total Score 0 03/07/2022 [facility] of Occupat ional Health - Occupational Stress [...] 11/28/2023 2:45 PM EDT ----- Please arrange [facility] follow-up appointment. She will need to be seen on her before December 09. Discharging home with chest port in place, IV daptomycin and ertapenem environmental services assistant is currently working on arranging home healthcare [...] Physicians Plastic and Reconstructive Surgery [address] [facility] [address] [place] [address] Shereen Smallwood PA-C [address] [facility] [address] [place] [address] 10/26/2024 8:30 AM EDT Telephone Visit [facility] Oncology, A Department of [address] [place] [address] Raymond Sepulveda MD [address] [facility], [address] [place] [address] documented as of this encounter Visit Diagnoses Not on filedocumented in this encounter Additional Health Concerns Assessment Noted Time PHQ-9 Depression Total Score: 0 03/07/19 23 11:14 AM EST documented as of this encounter Care Teams Education Managers Relationship Specialty Start Date End Date Amy Collier, BESSEMER REGULATOR-INSTRUCTIONAL COACH [address] [place] [address] PCP - General 11/28/16 documented as of this encounter
--- OUTSIDE RECORDS SUMMARY | 2024-08-25 14:02 | XMS_ITS | Encounter Summary ---
Author Organization [facility] tem Address [facility][id number] [address] [place] [address] Care Team Providers Care Narrative Writer Name Role Phone Amy Collier ADAPTIVE PHYSICAL EDUCATION TEACHER-WATER PROJECT ENGINEER Primary Care Provider + Encounter Details Date Type Department Care Team (Late st Contact Info) Description 06/16/2024 Orders Only [facility] Division of [facility] - Interventional Radiology [address] [place] [phone] Guillaume Curiel MD [address] [place] [address] [address] [place] [address] Liver lesion (Primary Dx) Social History Tobacco Use Types Packs/Day Years Used Date Smoking Tobacco: Never Passive Smoke Exposure: Past Smokeless Tobacco: Never Alcohol Use Standard Drinks/Week Comments Yes 0 (1 standard drink = 0.6 oz pur e alcohol) Socially [employer] Utilities Answer Date Recorded In the past 12 months has [employer], gas, oil, or water company threatened to [...] any clubs o r organizations such as shinto groups, unions, fraternal or athletic groups, or [...] Answer Date Recorded Total Score 2 03/30/2024 [facility] of Occupat [facility] - Occupational Stress Questionnaire Answer [...] Recorded Do you need help finding a gardner sanitariumal career center and/or a training program? No [...] 9:30 AM EDT Office Visit [facility] Physicians Plastic and Reconstructive Surgery [address] [place] [address] [address] [place] [phone] Sehreen Smallwood PA-C 5308 [facility] [address] [place] [address] 10/26/2024 8:30 AM EDT Telephone Visit [facility] Gynecology Oncology, A Department of [address] [place] [address] [place] [address] [place] [address], [address] [place] [address] documented as of this encounter Goals Goal Patient Goal Type Associated Problems Recent Progress Patient-Stated? Author return home General Yes Mariah Gonsalez, OC Note: Evaluation of progress towards goal: progressing, patient will return home at discharge/follow up [facility] documented as of this encounter Visit Diagnoses Diagnosis Liver lesion- Primary Other specified disorders of liver documented in this encounter Additional Health Concerns Assessment Noted Time PHQ-9 Depression Total Score: 2 03/30/19 25 3:58 PM EST documented as of this encounter Care Teams Narrative Writer Relationship Specialty Start Date End Date Amy Colleir, ADAPTIVE PHYSICAL EDUCATION TEACHER-WATER PROJECT ENGINEER [address] [place] [address] PCP - General 11/28/16 documented as of this encounter
--- OUTSIDE RECORDS SUMMARY | 2024-08-25 14:02 | XMS_ITS | Encounter Summary ---
Author Organization [employer] tem Address [id number] [facility] [place] [address] Care Team Providers Care Well Puller Name Role Phone Amy Collier William LINDQUIST Primary Care Provider + Reason for Referral * Consultation (Urgent) - Pending Review Specialty Diagnoses / Procedures Referred By Contac t Referred To Contact Infectious Disease / Respiratory Therapy Diagnoses Acid fast bacillus Carolina Munguia APRN-CNP [address] [address] [address] [address] Phone: tel: fax: Uyen Rivrea MD [address] [address] Phone: tel: fax: Referral ID Status Reason Start Date Expiration Date Visits Requested Visits Authorized [id number] Pending Review Specialty Services Required 12/02/2023 12/01/2024 1 1 * Consultation (Urgent) - Pending Review Specialty Diagnoses / Procedures Referred By Contac t Referred To Contact Infectious Disease Diagnoses Acid fast bacillus Carolina Munguia APRN-CNP 5740 [facility] [address] [address] Phone: tel: fax: Clint Lizarraga MD [address] [place] [address] Phone: tel: fax: Referral ID Status Reason Start Date Expiration Date Visits Requested Visits Authorized [id number] Pending Review Specialty Services Required 12/02/2023 12/01/2024 1 1 Encounter Details Date Type Department Care Team (Late st Contact Info) Description 12/02/2023 Orders Only [facility] Infectious Disease [address] [facility] [address] [place] [address] Carolina Munguia APRN-CNP [address] [facility], [address] [address] Acid fast bacillus (Primary Dx) Social History Tobacco Use Types Packs/Day Years Used Date Smoking Tobacco: Never Smokeless Tobacco: Never Alcohol Use Standard Drinks/Week Comments Yes 0 (1 standard drink = 0.6 oz pur e alcohol) Socially [employer] Utilities Answer Date Recorded In the past 12 months has [employer], gas, oil, or water [employer] threatened to shut off services in your [...] 02/27/2022 How often do you attend [facility] or islam services? More than 4 times per year 02/27/2022 Do you belong to any clubs o r organizations such as caodaism groups, unions, fraternal or athletic groups, or [...] Answer Date Recorded Total Score 0 03/07/2022 [facility] Questionnaire Answer [...] Description 08/29/2024 9:30 AM EDT Office Visit [facility] Physicians Plastic and Reconstructive Surgery [address] [place] [address] [address] [place] [address] Shereen Smallwood, PANicolasC 5308 [facility], [facility] [address] [place] [address] 10/26/2024 8:30 AM EDT Telephone Visit [facility] Gynecology Oncology, A Department of [address] [place] [address] [place] [address] [place] [address], [address] [place], [place] [id number] Scheduled Referrals Name Type Priority Associated Diagnoses [...] documented as of this encounter Care Teams Well Puller Relationship Specialty Start Date End Date Amy Collier APRN-PLUNKET NURSE [address] [place] [address] PCP - General 11/28/16 documented as of this encounter
--- OUTSIDE RECORDS SUMMARY | 2024-08-25 14:02 | XMS_ITS | Encounter Summary ---
Author Organization [facility] Address [facility]-[id number] [address] [place] [address] Care Team Providers Care Groundskeeper Name Role Phone Amy Collier ANY COMMODITY SALES DELIVERER-ROUND UP RING HAND Primary Care Provider + Reason for Visit * Reason Onset Date Comments PT Discharge 12/04/2023 Encounter Details Date Type Department Care Team (Late st Contact Info) Description 12/04/2023 [facility]phone [facility] [address] [place] [address] Christopher Joe MD [address] [place] [address] PT Discharge Social History Tobacco Use Types Packs/Day Years Used Date Smoking Tobacco: Never Smokeless Tobacco: Never Alcohol Use Standard Drinks/Week Comments Yes 0 (1 standard drink = 0.6 oz pur e alcohol) Socially [facility] Utilities Answer Date Recorded In the past 12 months has [employer], gas, oil, or water company threatened to [...] any clubs o r organizations such as yazdanism groups, unions, fraternal or athletic groups, or [...] Answer Date Recorded Total Score 0 03/07/2022 [facility] of Occupat ional Health - [...] Recorded Do you need help finding a [facility] career center and/or a training program? No [...] encounter Miscellaneous Notes * Telephone Encounter - Francisca Michael - 12/04/2023 9:45 AM EDT ----- Message from Dr. Christopher Joe MD sent at 12/03/2023 4:17 PM EDT ----- This patient was seen in consultation at [facility] She will not require a follow-up visit in our office, as she follows with [facility] Cardiology group Thank you documented in this encounter Plan of Treatment Upcoming Encounters Date Type Department Care Team (Late st Contact Info) Description 08/29/2024 9:30 AM EDT Office Visit [facility] Physicians Plastic and Reconstructive Surgery [facility] [address] [facility] [address] [place] [address] Shereen Smallwood PA-C [address], [facility] [address] [place] [address] 10/26/2024 8:30 AM EDT Telephone Visit [facility] Gynecology Oncology, A Department of [facility] [address] [facility] [address] [place] [address] Raymond Sepulveda MD [address] [place] [address], [address] [place] [address] documented as of this encounter Visit Diagnoses Not on filedocumented in this encounter Additional Health Concerns Assessment Noted Time PHQ-9 Depression Total Score: 0 03/07/19 23 11:14 AM EST documented as of this encounter Care Teams Groundskeeper Relationship Specialty Start Date End Date Amy Collier, ANY COMMODITY SALES DELIVERER-ROUND UP RING HAND [address] [place] [address] PCP - General 11/28/16 documented as of this encounter
--- OUTSIDE RECORDS SUMMARY | 2024-08-25 14:02 | XMS_ITS | Encounter Summary ---
Author Organization [facility] Address [facility][id number] [address] [place] [address] Care Team Providers Care Cupola Worker Name Role Phone Amy Collier PATIENT SUPPORT ASSOCIATE-TELEPHONE WORKER Primary Care Provider + Encounter Details Date Type Department Care Team (Late st Contact Info) Description 12/31/2023 Orders Only [facility] Internal Medicine - Family Medicine [address] [place] [phone] Ref Prov, [place] [address] Social History Tobacco Use Types Packs/Day Years Used Date Smoking Tobacco: Never Smokeless Tobacco: Never Alcohol Use Standard Drinks/Week Comments Yes 0 (1 standard drink = 0.6 oz pur e alcohol) Socially [employer] Utilities Answer Date Recorded In the past 12 months has [employer] electric, gas, oil, or water company threatened [...] any clubs o r organizations such as protestant groups, unions, fraternal or athletic groups, or [...] Recorded Total Score 0 03/07/2022 [facility] of Occupat ional Health - Occupational Stress [...] [facility] [address] [place], [place] [address]AN[address]UM [facility] [address] [place] [address] Shereen Smallwood PA-C [address], [facility] [address] [place] [address] 10/26/2024 8:30 AM EDT Telephone Visit [facility] Gynecology Oncology, A Department of [address] [facility] [address] [place] [address] [place] [address] [place] [address], [address] [place], [place] [phone] documented as of this encounter Procedures Procedure [...] documented as of this encounter Care Teams Cupola Worker Relationship Specialty Start Date End Date Amy Collier, PATIENT SUPPORT ASSOCIATE-TELEPHONE WORKER [address] [place] [address] PCP - General 11/28/16 documented as of this encounter
--- OUTSIDE RECORDS SUMMARY | 2024-08-25 14:02 | XMS_ITS | Encounter Summary ---
Author Organization [employer] Address [facility][id number] [address] [place] [address] Care Team Providers Care Bus Driver Name Role Phone Amy Collier DOPER OPERATOR-PATROL OFFICER Primary Care Provider + Encounter Details Date Type Department Care Team (Late st Contact Info) Description 06/23/2024 Telephone [facility] Plastic and Reconstructive Surgery [address] [facility] [address] [place] [address] Viviane Lopez CMA Social History Tobacco Use Types Packs/Day Years Used Date Smoking Tobacco: Never Passive Smoke Exposure: Past Smokeless Tobacco: Never Alcohol Use Standard Drinks/Week Comments Yes 0 (1 standard drink = 0.6 oz pur e alcohol) Socially AHC Utilities Answer Date Recorded In the past 12 months has [employer] electric, gas, oil, or water [employer] threatened to shut off services in your [...] often do you attend chur ch or religion services? More than 4 times per year [...] Answer Date Recorded Total Score 2 03/30/2024 [facility] of Occupat ional Health - Occupational Stress [...] 08/29/2024 9:30 AM EDT Office Visit [facility] Physicians Plastic and Reconstructive Surgery 5[address] [facility] [address] [place] [address] Shereen Smallwood, PANicolasC 5308 [facility] , [facility] [address] [place] [address] 10/26/2024 8:30 AM EDT Telephone Visit [facility] Gynecology Oncology, A Department of [facility] 5308 [facility] [address] [place] [address] Raymond Sepulveda MD 5308 [facility], [address] [place] [address] documented as of this encounter Goals Goal Patient Goal Type Associated Problems Recent Progress Patient-Stated? Author return home General Yes Mariah Gonsalez, RN Note: Evaluation of progress towards goal: progressing, patient will return home at discharge/follow up [facility] Wound care clinic documented as of this encounter Visit Diagnoses Not on filedocumented in this encounter Additional Health Concerns Assessment Noted Time PHQ-9 Depression Total Score: 2 03/30/19 25 3:58 PM EST documented as of this encounter Care Teams Bus Driver Relationship Specialty Start Date End Date Amy Collier APRN-PATROL OFFICER [address] [place] [address] PCP - General 11/28/16 documented as of this encounter
--- OUTSIDE RECORDS SUMMARY | 2024-08-25 14:02 | XMS_ITS | Encounter Summary ---
Author Organization [facility] tem Address [facility] [place]-[id number] [address] [place] [address] Care Team Providers Care Sack Sorter Name Role Phone Amy Collier ASSEMBLER PRODUCTION LINE-EKG MANAGER Primary Care Provider + Reason for Referral * Diagnostic Imaging (Routine) - Closed Specialty Diagnoses / Procedures Referred By Contac t Referred To Contact Radiology Diagnoses Liver lesion Procedures IR percutaneous biopsy liver Guillaume Curiel MD [address] [place] [address] [place] [address] Phone: tel: fax: Referral ID Status Reason Start Date Expiration Date Visits Re quested Visits Authorized [id number] Closed 1 1 Encounter Details Date Type Department Care Team (Late st Contact Info) Description 07/06/2024 Orders Only [facility] Division of [facility] - Interventional Radiology [address] [place] [address] Guillaume Curiel MD [address] [place] [address] [place] [address] Liver lesion (Primary Dx) Social History Tobacco Use Types Packs/Day Years Used Date Smoking Tobacco: Never Passive Smoke Exposure: Past Smokeless Tobacco: Never Alcohol Use Standard Drinks/Week Comments Yes 0 (1 standard drink = 0.6 oz pur e alcohol) Socially AHC Utilities Answer Date Recorded In the past 12 months has [employer] electric, gas, oil, or water company threatened [...] any clubs o r organizations such as oriental orthodox groups, unions, fraternal or athletic groups, or [...] 2 03/30/2024 [facility] of Occupat ionid Health - Occupational Stress Questionnaire Answer Date [...] Description 08/29/2024 9:30 AM EDT Office Visit [facility] Physicians Plastic and Reconstructive Surgery [facility] MICHELLE CABELLO [facility] [address] [place] [phone] Shereen Smallwood PA-C [address], [facility] [address] [place] [address] 10/26/2024 8:30 AM EDT Telephone Visit [facility] Gynecology Oncology, A Department of [place] [address] [address] [place] [address] [place] [address] [place] [address], [address] [place] [address] documented as of this encounter Goals Goal Patient Goal Type Associated Problems Recent Progress Patient-Stated? Author return home General Yes Mariah Gonsalez, RN Note: Evaluation of progress towards goal: progressing, patient will return home at discharge/follow up [facility] documented as of [...] trained personnel. A total of 30 minutes izky-pw-gzky moderate sedation was provided by Dr. Luz. [...] trained personnel. A total of 30 minutes zeyo-ym-uptljzcmbnzk sedation was provided by Dr. Luz. Following [...] documented as of this encounter Care Teams Sack Sorter Relationship Specialty Start Date End Date Amy Collier APRN-ESPERANZA [address] [place] [address] PCP - General 11/28/16 documented as of this encounter
--- OUTSIDE RECORDS SUMMARY | 2024-08-25 14:03 | XMS_ITS | Encounter Summary ---
Author Organization [facility] Address [address] [place] [address] Care Team Providers Care Security Engineer Name Role Phone Randy Lu MD Primary Care Provider Encounter Details Date Type Department Care Team (Late Contact Info) Description 04/08/2024 Abstract [facility] OB [address] [place] [address] Evan Thompson DO [facility] [address] [id number] Social History Tobacco Use Types Packs/Day Years [...] 06/12/2025 10:00 AM EDT Office Visit [facility] OB [address] [place] [address] Evan Thompson DO [facility] [address] [phone] documented as of this encounter Visit Diagnoses Not on filedocumented in this encounter Care Teams Security Engineer Relationship Specialty Start Date End Date Randy Lu MD PCP - General Family Medicine 04/02/23 documented as of this encounter
--- OUTSIDE RECORDS SUMMARY | 2024-08-25 14:03 | XMS_ITS | Encounter Summary ---
Author Organization [employer] Address [facility][id number] [address] [place] [address] Care Team Providers Care Photo Studio Assistant Name Role Phone Amy Collier WRAPPER CASHIER-ELECTROMECHANICAL ENGINEER Primary Care Provider + Encounter Details Date Type Department Care Team (Late st Contact Info) Description 01/18/2024 [facility]phone [facility] [address] [facility] [address] [place] [address] Shy Bob MA Social History Tobacco Use Types Packs/Day Years Used Date Smoking Tobacco: Never Smokeless Tobacco: Never Alcohol Use Standard Drinks/Week Comments Yes 0 (1 standard drink = 0.6 oz pur e alcohol) Socially [employer]HC Utilities Answer Date Recorded In the past 12 months has [employer] electric, gas, oil, or water company threatened [...] Answer Date Recorded Total Score 0 03/07/2022 [facility] [place] of Occupat ional Health - Occupational Stress [...] patient is being followed and managed by [facility] ID - please fax results to [...] EDT Office Visit [facility] Physicians Plastic and Reconstructive Surgery [address] [facility] [address] [place] [address] Shereen Smallwood PA-C [address], [address] [place] [address] 10/26/2024 8:30 AM EDT Telephone Visit [facility] On[facility], A Department of [facility] [address] [place] [address] Raymond Sepulveda MD 5308 [facility], [address] [place] [address] documented as of this encounter Visit Diagnoses Not on filedocumented in this encounter Additional Health Concerns Assessment Noted Time PHQ-9 Depression Total Score: 0 03/07/19 23 11:14 AM EST documented as of this encounter Care Teams Photo Studio Assistant Relationship Specialty Start Date End Date Amy Collier APRN-ELECTROMECHANICAL ENGINEER [address] [place] [address] PCP - General 11/28/16 documented as of this encounter
--- OUTSIDE RECORDS SUMMARY | 2024-08-25 14:03 | XMS_ITS | Clinical Summary ---
Author Organization [facility] Address [address] [place] [address] Care Team Providers Care Vehicle Washer Name Role Phone Randy Lu MD Primary Care Provider [phone] Allergies Active Allergy Reactions Criticality Noted Date [...] Care Team Description 06/07/2024 Orders Only [facility] [address] [place] [address] Nahomy Watson LPN 06/01/2024 11:00 AM EDT Office Visit [facility] [address] [place] [address] Evan Thompson DO Well woman exam with routine gynecological exam; Breast cancer screening by mammogram; Postmenopausal state 06/01/2024 Clinisync Result Encounter [facility] External Department Unsolicited Evan Thompson, 06/01/2024 Bamboo flowsheet [facility] [address] [place] [address] Evan Thompson, 05/30/2024 Telephone [facility] [address] [place] [address] Oralia Fernandez LPN from Last 3 Months [...] EDT Office Visit [facility] [address] [facility] [place] [address] Evan Thompson, [address] [facility] [place] [address] Health Maintenance Due Date Last Done Comments [...] EDT) AGE GDLN ACOG TESTING Note . [facility] Comment: TESTS RESULT FLAG UNITS REF RANGE LAB Clinician Provided Cytology Information Source.............Vagina No. of containers..01 ThinPrep Vial Age Kristen RUIZ Christie... FLAG LEGEND: L-Low Normal,H-High Normal,LL-Alert Low,HH-Alert High <-Panic Low,>-Panic High,A-Abnormal,AA-Critical Abnormal Performed at: 01 =[facility] [place] [address] Apolonia Mayorga MD, IGP, APTIMA HPV, RFX 16/18,45 Note . [facility] Comment: TESTS RESULT FLAG UNITS REF RANGE LAB DIAGNOSIS: 02 NEGATIVE FOR INTRAEPITHELIAL LESION OR MALIGNANCY. Specimen adequacy: 02 Satisfactory for evaluation. Performed by: Karina Goodwin, Teletypesetter Operator (ASCP) . 02 Note: Note 03 The [...] Low,>-Panic High,A-Abnormal,AA-Critical Abnormal Performed at: 02 [facility] [address] [place] [address] Acosta Box MD, [address] [address] Apolonia Mayorga MD, HPV APTIMA Negative Negative TB Comment: This nucleic acid amplification test detects fourteen high- risk HPV types (16,18,31,33,35,39,45,51,52,56,58,59,66,68) without differentiation. Performed at: =G - [facility] [address] [id number] Strategic Client Executive: Apolonia Mayorga MD, Phone: [phone] Performed at: [facility] [address] [place], [place] [id number] Strategic Client Executive: Acosta Box MD, Phone: [phone] 06/01/2024 11:0 8 AM EDT 06/01/2024 3:15 PM EDT Narrative [facility] - 06/03/2024 10:07 PM EDT SPATULA-ALONE VAGINA Evan Thompson DO LAB BLOOD ORDERABLES Final Resul t Performing Organization Address [facility]/ZIP Co de Phone Number [facility] TB * Pap Smear (06/01/2024 12:00 AM EDT) Swab Cervical swab / Unknown Jay Nurse [facility] Ob LAB CYTOLOGY ORDERABLES Final Result EXTERNAL LAB * Bilateral screening mammogram (12/27/2021 12:00 PM EDT) Anatomical Region Laterality Modality Breast Bilateral Mammography Narrative 12/27/2021 12:00 PM EDT PERFORMED AT [facility] LOCATION:[id number] Procedure Note CONVERSION, GENERIC - 09/05/2022 PERFORMED AT [facility] LOCATION:[id number] Bo Melendez MD IMG BI PROCEDURES Final Resul t from Last 3 Months or Most Recently Relevant to Health Maintenance Insurance [employer] MEDICAID Care Teams Vehicle Washer Relationship Specialty Start Date End Date Randy Lu MD PCP - General Family Medicine 04/02/23
--- OUTSIDE RECORDS SUMMARY | 2024-08-25 14:03 | XMS_ITS | Encounter Summary ---
Author Organization [facility]acy[facility] tem Address [id number] [address] [place] [address] Care Team Providers Care Kennel Helper Name Role Phone Amy Collier PLUMBER ASSISTANT-MARBLE CARVER Primary Care Provider + Encounter Details Date Type Department Care Team (Late st Contact Info) Description 05/23/2024 Orders Only [facility] Internal Medicine - Family Medicine [address] [place] [phone] Ref Prov, [place] [address] Social History Tobacco Use Types Packs/Day Years [...] often do you attend chur ch or worship services? More than 4 times per year [...] Answer Date Recorded Total Score 2 03/30/2024 [facility] of Occupat ional Health - [...] Recorded Do you need help finding a [facility] and/or a training [...] Description 08/29/2024 9:30 AM EDT Office Visit [facility] Plastic [facility] Reconstructive [facility] [address] [place] [address] [address] [place] [address] Shereen Smallwood PA-C 5308 [facility] [address] [place] [address] 10/26/2024 8:30 AM EDT Telephone Visit [facility] Oncology, A Department of [address] [place] [address] Raymond Sepulveda MD 5308 [facility], [address] [place], [place] [phone] documented as of this encounter Goals Goal Patient Goal Type Associated Problems Recent Progress Patient-Stated? Author return home General Yes Mariah Gonsalez, RN Note: Evaluation of progress towards goal: progressing, patient will return home at discharge/follow up On License Of [facility] Wound care clinic documented as [...] EDT) us Not In System Ref Prov OK IMAGING Final Res ult MANUALLY TRANSCRIBED RESULTS documented in this encounter Visit Diagnoses Not on filedocumented in this encounter Additional Health Concerns Assessment Noted Time PHQ-9 Depression Total Score: 2 03/30/19 25 3:58 PM EST documented as of this encounter Care Teams Kennel Helper Relationship Specialty Start Date End Date Amy Collier APRN-MARBLE CARVER [address] [place] [address] PCP - General 11/28/16 documented as of this encounter
--- OUTSIDE RECORDS SUMMARY | 2024-08-25 14:03 | XMS_ITS | Encounter Summary ---
Author Organization [facility] Sys tem Address [facility] [id number] [address] [place] [address] Care Team Providers Care Production Truck Driver Name Role Phone Amy Collier SENIOR COMPLIANCE ANALYST-ROLLER CLEANER Primary Care Provider + Encounter Details Date Type Department Care Team (Late st Contact Info) Description 06/03/2024 Orders Only [facility] Internal Medicine - Family Medicine [address] [place] [phone] Ref Prov, [place] [address] Social History Tobacco Use Types Packs/Day Years [...] often do you attend chur ch or mormonism services? More than 4 times per year 02/27/2022 Do you belong to any clubs o r organizations such as christian groups, unions, fraternal or athletic groups, or [...] Answer Date Recorded Total Score 2 03/30/2024 [facility] of Occupat ional Health - [...] 9:30 AM EDT Office Visit [facility] Plastic and Reconstructive Surgery [address] [place] [address] [address] [place] [address] Shereen Smallwood PA-C 5308 [facility] [address] [place] [address] 10/26/2024 8:30 AM EDT Telephone Visit [facility] Gynecology Oncology, A Department of [address] [place] [address] Raymond Sepulveda MD 5308 [facility], [address] [place], [place] [phone] documented as of this encounter Goals Goal Patient Goal Type Associated Problems Recent Progress Patient-Stated? Author return home General Yes Mariah Gonsalez, RN Note: Evaluation of progress towards goal: progressing, patient will return home at discharge/follow up [facility] documented as of this [...] OR DERABLES Final Result Performing Organization Address [facility] de Phone Number MANUALLY TRANSCRIBED RESULTS * Blood Culture (05/22/2024 11:18 AM EDT) Blood us Not In System Ref Prov MICROBIOLOGY - GENERAL OR DERABLES Final Result Performing Organization Address [facility] de Phone Number MANUALLY TRANSCRIBED RESULTS * Blood Culture (05/22/2024 11:17 AM EDT) Blood us Not In System Ref Prov MICROBIOLOGY - GENERAL OR DERABLES Final Result Performing Organization Address [facility] de Phone Number MANUALLY TRANSCRIBED RESULTS * Blood Culture (05/22/2024 11:15 AM EDT) Blood us Not In System Ref Prov MICROBIOLOGY - GENERAL OR DERABLES Final Result Performing Organization Address [facility] de Phone Number MANUALLY TRANSCRIBED RESULTS documented in this encounter Visit Diagnoses Not on filedocumented in this encounter Additional Health Concerns Assessment Noted Time PHQ-9 Depression Total Score: 2 03/30/19 25 3:58 PM EST documented as of this encounter Care Teams Production Truck Driver Relationship Specialty Start Date End Date Amy Collier, SENIOR COMPLIANCE ANALYST-ROLLER CLEANER [address] [place] [address] PCP - General 11/28/16 documented as of this encounter
--- OUTSIDE RECORDS SUMMARY | 2024-08-25 14:03 | XMS_ITS | Encounter Summary ---
Author Organization [employer] Sys tem Address [id number] [address] [place] [address] Care Team Providers Care Pony Roll Finisher Name Role Phone Amy Collier MOLD DRESSER-ORE CRUSHING DUST COLLECTOR Primary Care Provider + Encounter Details Date Type Department Care Team (Late st Contact Info) Description 08/02/2024 Telephone [facility] 5[address] [facility] [address] [place] [address] Viviane Lopez CMA Social History Tobacco Use Types Packs/Day Years Used Date Smoking Tobacco: Never Passive Smoke Exposure: Past Smokeless Tobacco: Never Alcohol Use Standard Drinks/Week Comments Yes 0 (1 standard drink = 0.6 oz pur e alcohol) Socially [facility] Utilities Answer Date Recorded In the past 12 months has [employer] electric, gas, oil, or water [employer] threatened to shut off services in your [...] often do you attend chur ch or hoahaoism services? More than 4 times per year [...] Answer Date Recorded Total Score 0 07/14/2024 [facility] of Occupat ional Health - Occupational Stress [...] [facility] Plastic and Reconstructive Surgery [address] [facility] [address] [place] [address] Shereen Smallwood, PANicolasC 5308 [facility], [facility] [address] [place] [address] 10/26/2024 8:30 AM EDT [facility], A Department of [facility] [address] [facility] [address] [place] [address] [place] [address] [place] [address], [address] [place] [address] documented as of this encounter [...] documented as of this encounter Care Teams Pony Roll Finisher Relationship Specialty Start Date End Date Amy Collier APRN-ORE CRUSHING DUST COLLECTOR [address] [place] [address] PCP - General 11/28/16 documented as of this encounter
--- OUTSIDE RECORDS SUMMARY | 2024-08-25 14:03 | XMS_ITS | Encounter Summary ---
Author Organization [employer] Sys tem Address [facility][id number] [address] [place] [address] Care Team Providers Care All Around Patternmaker Name Role Phone Amy Collier OUTSOLES CHANNEL OPENER-RESIDENTIAL TREATMENT COUNSELOR Primary Care Provider + Encounter Details Date Type Department Care Team (Late Contact Info) Description 12/26/2021 Orders Only [facility] Family Medicine [address] [facility] [place] [address] Ref Prov, [place] [address] Social History Tobacco Use Types Packs/Day Years [...] Reconstructive Surgery [address] [place] [address] Shereen Smallwood PA-C [address], [address] [place] [address] 10/26/2024 8:30 AM EDT Telephone Visit [facility], A Department of [facility] 5[address] [facility] [address] [place] [address] Raymond Sepulveda MD 5308 [facility], [address] [place] [address] documented as of this encounter [...] documented as of this encounter Care Teams All Around Patternmaker Relationship Specialty Start Date End Date Amy Collier, OUTSOLES CHANNEL OPENER-RESIDENTIAL TREATMENT COUNSELOR [address] [place] [address] PCP - General 11/28/16 documented as of this encounter
--- OUTSIDE RECORDS SUMMARY | 2024-08-25 14:03 | XMS_ITS | Encounter Summary ---
Author Organization [facility] Address [id number] [address] [place] [address] Care Team Providers Care Warp Tier Name Role Phone Amy Collier FINANCIAL SALES MANAGER-BUSINESS LOAN PROCESSOR Primary Care Provider + Encounter Details Date Type Department Care Team (Late st Contact Info) Description 08/25/2024 Orders Only [facility] Internal Medicine - Family Medicine [address] [place] [phone] Amy Collier APRNBUSINESS LOAN PROCESSOR [address] [place] [address] Social History Tobacco Use Types Packs/Day Years Used Date Smoking Tobacco: Never Passive Smoke Exposure: Past Smokeless Tobacco: Never Alcohol Use Standard Drinks/Week Comments Not Currently 0 (1 standard drink = 0.6 oz pur e alcohol) [facility] Utilities Answer Date Recorded In the past 12 months has [employer] gas, oil, or water company threatened to [...] often do you attend chur ch or pentecostalism services? More than 4 times per year 02/27/2022 Do you belong to any clubs o r organizations such as buddhism groups, unions, fraternal or athletic groups, or [...] Answer Date Recorded Total Score 0 08/10/2024 [facility] of Occupat ional Health - Occupational [...] Recorded Do you need help finding a [facility] career center and/or a training [...] encounter Progress Notes * AMEENA Garcia - 08/25/2024 9:50 AM EDT Called patient's pharmacist from [facility] and pharmacist stated that patient's serum creatinine did increase to 1.25 and GFR went down to 54 on August 22. Also to note her potassium was 4.4. Pharmacist recommended that we decrease her Aldactone to 12.5 mg daily and this change was made in sent to her pharmacy. Pharmacist stated her blood pressure on August 16 was 129/86 as told by patient from her home blood pressure log. Patient was also called to discuss the medication changes. She was asked to continue to track her blood pressure at home and if it starts to increase above goal of 130/80 consistently, we will increase her Coreg to 25 mg twice a day. Patient will stay in communication with provider if her blood pressure is increased. AMEENA Garcia 08/25/24 1001 documented in this encounter Plan of Treatment Upcoming Encounters Date Type Department Care Team (Late st Contact Info) Description 08/29/2024 9:30 AM EDT Office Visit [facility] [address] [place] [address] Shereen Smallwood PA-C [address], [address] [place] [address] 10/26/2024 8:30 AM EDT Telephone Visit [facility], A Department of [place] [address] [facility] [address] [facility] [place] [address] Raymond Sepulveda MD 5308 [facility], [address] [place] [address] documented as of this encounter Goals Goal Patient Goal Type Associated Problems Recent Progress Patient-Stated? Author return home General Yes Mariah Gonsalez, RN Note: Evaluation of progress towards goal: progressing, patient will return home at discharge/follow up [facility] Wound care clinic Autogenerated Goal Care Plan Autogenerated Problem No Skyla Marie documented as of this encounter Visit Diagnoses Not on filedocumented in this encounter Additional Health Concerns Active Problems Noted Date Diagnosed Date Autogenerated Problem 08/09/2024 Assessment Noted Time PHQ-9 Depression Total Score: 0 08/11/19 25 3:50 PM EDT documented as of this encounter Care Teams Warp Tier Relationship Specialty Start Date End Date Amy Collier APRN-BUSINESS LOAN PROCESSOR [address] [place] [address] PCP - General 11/28/16 documented as of this encounter
--- OUTSIDE RECORDS SUMMARY | 2024-08-25 14:03 | XMS_ITS | Encounter Summary ---
Author Organization [facility] Address [id number] [address] [place] [address] Care Team Providers Care Respiratory Physician Name Role Phone Amy Collier SITECORE DEVELOPER-TAX REVENUE OFFICER Primary Care Provider + Encounter Details Date Type Department Care Team (Late st Contact Info) Description 12/22/2023 Orders Only [facility] Infectious Disease [address] [facility] [address] [place] [address] External, Scanning Provider Social History Tobacco Use Types Packs/Day Years Used Date Smoking Tobacco: Never Smokeless Tobacco: Never Alcohol Use Standard Drinks/Week Comments Yes 0 (1 standard drink = 0.6 oz pur e alcohol) Socially [facility] Utilities Answer Date Recorded In the past 12 months has [employer] electric, gas, oil, or water company threatened [...] any clubs o r organizations such as worship groups, unions, fraternal or athletic groups, or [...] Answer Date Recorded Total Score 0 03/07/2022 [facility] of Occupat ional Health - Occupational Stress [...] [facility] [address] [place] [address] [address] [place] [address] Shereen Smallwood PA-C [address] [place] [address], [facility] [address] [place] [address] 10/26/2024 8:30 AM EDT Telephone Visit [facility] Gynecology Oncology, A Department of [address] [place] [address] [place] [address] [place] [address], [address] [place], [place] [phone] documented as of this encounter Procedures Procedure [...] BLOOD ORDERABLES Final Result Performing Organization Address [facility] de Phone Number MANUALLY TRANSCRIBED RESULTS * Platelet count (12/17/2023) External Platelet Count 280 150 - 450 MANUALLY TRANSCRIBED RESULTS Blood 12/17/2023 us Scanning Provider External LAB BLOOD ORDERABLES Final Result Performing Organization Address [facility] de Phone Number MANUALLY TRANSCRIBED RESULTS * WBC (12/17/2023) External Wbc Count 5.4 4.0 - 11.0 MANUALLY TRANSCRIBED RESULTS Blood 12/17/2023 us Scanning Provider External LAB BLOOD ORDERABLES Final Result Performing Organization Address [facility] de Phone Number MANUALLY TRANSCRIBED RESULTS * (ABNORMAL) Creatinine includes GFR, serum (12/10/2023) External Creatinine 1.50(A) 0.55 - 1.02 MANUALLY TRANSCRIBED RESULTS Blood 12/10/2023 us Scanning Provider External LAB BLOOD ORDERABLES Final Result Performing Organization Address [facility] de Phone Number MANUALLY TRANSCRIBED RESULTS documented in this encounter Visit Diagnoses Not on filedocumented in this encounter Additional Health Concerns Assessment Noted Time PHQ-9 Depression Total Score: 0 03/07/19 23 11:14 AM EST documented as of this encounter Care Teams Respiratory Physician Relationship Specialty Start Date End Date Amy Collier, SITECORE DEVELOPER-TAX REVENUE OFFICER [facility] [place] [address] PCP - General 11/28/16 documented as of this encounter
--- OUTSIDE RECORDS SUMMARY | 2024-08-25 14:03 | XMS_ITS | Encounter Summary ---
Author Organization [facility] Address [address] [place] [address] Care Team Providers Care Hoop Maker Name Role Phone Randy Lu MD Primary Care Provider Encounter Details Date Type Department Care Team (Late Contact Info) Description 04/19/2024 Abstract [facility] [address] [place] [address] Evan Thompson DO [facility] Janeth Palacios, [facility] Social History Tobacco Use Types Packs/Day [...] 06/12/2025 10:00 AM EDT Office Visit [facility] [address] [place] [address] Evan Thompson DO [facility] [place] [id number] documented as of this encounter Visit Diagnoses Not on filedocumented in this encounter Care Teams Hoop Maker Relationship Specialty Start Date End Date Randy Lu MD PCP - General Family Medicine 04/02/23 documented as of this encounter
--- OUTSIDE RECORDS SUMMARY | 2024-08-25 14:03 | XMS_ITS | Encounter Summary ---
Author Organization [facility] Sys tem Address [facility][id number] [address] [place] [address] Care Team Providers Care Contact Center Professional Name Role Phone Amy Collier GALLERY MANAGER-COMPUTER TECHNICAL SPECIALIST Primary Care Provider + Encounter Details Date Type Department Care Team (Late st Contact Info) Description 03/07/2022 Orders Only [facility] Internal Medicine - Family Medicine [address] [place] [address] Amy Collier APRN-COMPUTER TECHNICAL SPECIALIST [address] [place] [address] Social History Tobacco Use Types Packs/Day Years [...] Date Recorded Total Score 0 03/07/2022 [facility] of Occupat ional Health - Occupational Stress [...] [facility] [address] [place] [address] [address] [place] [address] Shereen Smallwood PA-C [address] [place] [address], [facility] [address] [place] [address] 10/26/2024 8:30 AM EDT Telephone Visit [facility] Gynecology Oncology, A Department of [address] [place] [address] [place] [address] [place] [address], [address] [place], [place] [phone] documented as of this encounter Procedures Procedure Name Priority Date/Time Associated Diagnosis Comments HOME NEBULIZER Routine 03/07/2022 documented in this encounter Results * Home Nebulizer (03/07/2022) us Amy Collier GALLERY MANAGER-COMPUTER TECHNICAL SPECIALIST DME ORDERABLES Final Re sult MANUALLY TRANSCRIBED RESULTS documented in this encounter Visit Diagnoses Not on filedocumented in this encounter Additional Health Concerns Infection Onset Date Last Indicated Resolved Time Influenza 03/07/2022 03/07/2022 03/14/2022 11:1 2 PM EST Assessment Noted Time PHQ-9 Depression Total Score: 0 03/07/19 11:14 AM EST documented as of this encounter Care Teams Contact Center Professional Relationship Specialty Start Date End Date Amy Collier, GALLERY MANAGER-COMPUTER TECHNICAL SPECIALIST [address] [place] [address] PCP - General 11/28/16 documented as of this encounter
--- OUTSIDE RECORDS SUMMARY | 2024-08-25 14:03 | XMS_ITS | Encounter Summary ---
Author Organization [facility] Address [facility] [place][id number] [address] [place] [address] Care Team Providers Care Concrete Boom Operator Name Role Phone Amy Collier MOVIE SHOT CAMERAMAN-ENTRY LEVEL ACCOUNTANT Primary Care Provider + Encounter Details Date Type Department Care Team (Late st Contact Info) Description 11/25/2023 Orders Only [facility] Plastic and Reconstructive [facility] [address] [place] [address] Marisela Davila, [facility] [address], [address] [place] [address] Social History Tobacco Use Types Packs/Day Years Used Date Smoking Tobacco: Never Smokeless Tobacco: Never Alcohol Use Standard Drinks/Week Comments Yes 0 (1 standard drink = 0.6 oz pur e alcohol) Socially [facility] Utilities Answer Date Recorded In the past 12 months has [employer], gas, oil, or water [employer] threatened to shut off services in your [...] Answer Date Recorded Total Score 0 03/07/2022 [facility] of Occupat ional Health - Occupational [...] Recorded Do you need help finding a [facility] career center and/or a training program? No [...] Description 08/29/2024 9:30 AM EDT Office Visit [facility] Physicians Plastic and Reconstructive Surgery [address] [place] [address] [address] [place] [address] Shereen Smallwood PANicolasC [address] [facility], [address] [place] [address] 10/26/2024 8:30 AM EDT Telephone Visit [facility] Gynecology Oncology, A Department of [address] [place] [address] [place] [address] [place] [address], [address] [place] [address] documented as of this encounter Visit Diagnoses Not on filedocumented in this encounter Additional Health Concerns Assessment Noted Time PHQ-9 Depression Total Score: 0 03/07/19 23 11:14 AM EST documented as of this encounter Care Teams Concrete Boom Operator Relationship Specialty Start Date End Date Amy Collier, MOVIE SHOT CAMERAMAN-ENTRY LEVEL ACCOUNTANT [address] [place] [address] PCP - General 11/28/16 documented as of this encounter
--- OUTSIDE RECORDS SUMMARY | 2024-08-25 14:03 | XMS_ITS | Encounter Summary ---
Author Organization [facility] Address [id number] [address] [place] [address] Care Team Providers Care Information Systems Director Name Role Phone Amy Collier IN FLIGHT TECHNICIAN-MANAGER APPLIED Primary Care Provider + Encounter Details Date Type Department Care Team (Late st Contact Info) Description 01/07/2024 Orders Only [facility] Infectious Disease [address] [facility] [address] [place] [address] External, Scanning Provider Social History Tobacco Use Types Packs/Day Years Used Date Smoking Tobacco: Never Smokeless Tobacco: Never Alcohol Use Standard Drinks/Week Comments Yes 0 (1 standard drink = 0.6 oz pur e alcohol) Socially [facility] Utilities Answer Date Recorded In the past 12 months has [employer] electric, gas, oil, or water company threatened [...] Answer Date Recorded Total Score 0 03/07/2022 [facility] Occupat ional Health - Occupational Stress [...] Description 08/29/2024 9:30 AM EDT Office Visit [facility] Physicians Plastic and Reconstructive Surgery [address] [place] [address] [address] [place] [address] Shereen Smallwood PA-C 5308 [facility] [address] [place] [address] 10/26/2024 8:30 AM EDT Telephone Visit [facility] Gynecology Oncology, A Department of [address] [place] [address] [place] [address] [place] [address], [address] [place], [place] [phone] documented as of this encounter Procedures Procedure Name Priority Date/Time Associated Diagnosis Comments PLATELET COUNT Routine 12/31/2023 WBC Routine 12/31/2023 CREATININE, SERUM Routine 12/31/2023 documented in this encounter Results * Platelet count (12/31/2023) External Platelet Count 164 150 - 450 MANUALLY TRANSCRIBED RESULTS Blood 12/31/2023 us Scanning Provider External LAB BLOOD ORDERABLES Final Result Performing Organization Address City/[facility] de Phone Number MANUALLY TRANSCRIBED RESULTS * WBC (12/31/2023) External Wbc Count 5.6 4.0 - 11.0 MANUALLY TRANSCRIBED RESULTS Blood 12/31/2023 us Scanning Provider External LAB BLOOD ORDERABLES Final Result Performing Organization Address [facility] de Phone Number MANUALLY TRANSCRIBED RESULTS * Creatinine includes GFR, serum (12/31/2023) External Creatinine 0.89 0.55 - 1.02 MANUALLY TRANSCRIBED RESULTS Blood 12/31/2023 us Scanning Provider External LAB BLOOD ORDERABLES Final Result Performing Organization Address [facility] de Phone Number MANUALLY TRANSCRIBED RESULTS documented in this encounter Visit Diagnoses Not on filedocumented in this encounter Additional Health Concerns Assessment Noted Time PHQ-9 Depression Total Score: 0 03/07/19 23 11:14 AM EST documented as of this encounter Care Teams Information Systems Director Relationship Specialty Start Date End Date Amy Collier, ROBER-MANAGER APPLIED [address] [facility] [place] [address] PCP - General 11/28/16 documented as of this encounter
--- OUTSIDE RECORDS SUMMARY | 2024-08-25 14:03 | XMS_ITS | Encounter Summary ---
Author Organization [facility] Address [facility] [place][id number] [address] [place] [address] Care Team Providers Care Service Parts Driver Name Role Phone Amy Collier SEO MANAGER-BAG VALVER Primary Care Provider + Encounter Details Date Type Department Care Team (Late st Contact Info) Description 05/24/2024 Orders Only [facility] Internal Medicine - Family Medicine [address] [place] [phone] Ref Prov, [place] [address] Social History Tobacco Use Types Packs/Day Years [...] Date Recorded Total Score 2 03/30/2024 [facility] of Occupat ional Health - [...] Recorded Do you need help finding a [facility] and/or a training [...] 9:30 AM EDT Office Visit [facility] Physicians Plastic and Reconstructive Surgery [address] [place] [address] [address] [place] [address] Shereen Smallwood PA-C [address] [facility] [address] [place] [address] 10/26/2024 8:30 AM EDT Telephone Visit [facility] Gynecology Oncology, A Department of [address] [place] [address] Raymond Sepulveda MD 5308 [facility], [address] [place], [place] [phone] documented as of this encounter Goals Goal Patient Goal Type Associated Problems Recent Progress Patient-Stated? Author return home General Yes Mariah Gonsalez, RN Note: Evaluation of progress towards goal: progressing, patient will return home at discharge/follow up [facility] Wound care clinic documented as [...] documented as of this encounter Care Teams Service Parts Driver Relationship Specialty Start Date End Date Amy Collier, SEO MANAGER-BAG VALVER [address] [place] [address] PCP - General 11/28/16 documented as of this encounter
--- OUTSIDE RECORDS SUMMARY | 2024-08-25 14:03 | XMS_ITS | Encounter Summary ---
Author Organization [employer] Sys tem Address [id number] [address] [place] [address] Care Team Providers Care Machine Precision Etcher Name Role Phone Amy Collier MEDICAL INSURANCE COLLECTOR-NOTE TELLER Primary Care Provider + Encounter Details Date Type Department Care Team (Late st Contact Info) Description 12/15/2023 Telephone [facility] Infectious Disease 57[address] [facility] [address] [place] [address] Crista Mauricio CMA Social History Tobacco Use Types Packs/Day Years Used Date Smoking Tobacco: Never Smokeless Tobacco: Never Alcohol Use Standard Drinks/Week Comments Yes 0 (1 standard drink = 0.6 oz pur e alcohol) Socially [employer] Utilities Answer Date Recorded In the past 12 months has [employer] electric, gas, oil, or water company threatened [...] often do you attend chur ch or anabaptist services? More than 4 times [...] Answer Date Recorded Total Score 0 03/07/2022 [facility] of Occupat ional Health - Occupational Stress [...] 8:57 AM EDT NEW PA SUBMITTED: MARTINEZ [id number] [facility] Member Services is processing your PA request [...] [place] [employer] 2017 Your PA request for [id number] was approved for 28 days. The PA# assigned is [id number]. * Telephone Encounter - AMEENA Vallejo - 12/15/2023 8:57 AM EDT Great news! Thank you. documented in this encounter Plan of Treatment Upcoming Encounters Date Type Department Care Team (Late st Contact Info) Description 08/29/2024 9:30 AM EDT Office Visit [facility] Physicians Plastic and Reconstructive Surgery [address] [place] [address] Shereen Smallwood, PANicolasC [address], [address] [place] [address] 10/26/2024 8:30 AM EDT [facility]phone [facility] On[facility], A Department of [facility] [address] [place] [address] Raymond Sepulveda MD 5308 [facility], [address] [place] [address] documented as of this encounter Visit Diagnoses Not on filedocumented in this encounter Additional Health Concerns Assessment Noted Time PHQ-9 Depression Total Score: 0 03/07/19 23 11:14 AM EST documented as of this encounter Care Teams Machine Precision Etcher Relationship Specialty Start Date End Date Amy Collier APRN-CNP [place] [address] PCP - General 11/28/16 documented as of this encounter
--- OUTSIDE RECORDS SUMMARY | 2024-08-25 14:03 | XMS_ITS | Encounter Summary ---
Author Organization [facility] Address [address] [place] [address] Care Team Providers Care Software Publisher Name Role Phone Randy Lu MD Primary Care Provider Encounter Details Date Type Department Care Team (Late Contact Info) Description 04/07/2024 Abstract [facility] OB [address] [place] [address] Evan Thompson DO [facility] [place] [phone] Social History Tobacco Use Types Packs/Day Years [...] 06/12/2025 10:00 AM EDT Office Visit [facility] [address] [place] [address] Evan Thompson DO [facility] [address] [place] [phone] documented as of this encounter Visit Diagnoses Not on filedocumented in this encounter Care Teams Software Publisher Relationship Specialty Start Date End Date Randy Lu MD PCP - General Family Medicine 04/02/23 documented as of this encounter
--- OUTSIDE RECORDS SUMMARY | 2024-08-25 14:03 | XMS_ITS | Encounter Summary ---
Author Organization [facility] Address [facility] [place]-[id number] [address] [place] [address] Care Team Providers Care Boat Repairer Name Role Phone Emelia Collier RIG SITE ENGINEER-AUTOMOBILE DEALER Primary Care Provider + Reason for Visit * Reason Onset Date Comments Transition Of Care 08/02/2024 Encounter Details Date Type Department Care Team (Late st Contact Info) Description 08/02/2024 Telephone [facility] Physicians [facility] [address] [place] [address] Joelle Betancourt, tank washer Of Care Social History Tobacco Use Types [...] Answer Date Recorded Total Score 0 07/14/2024 [facility] of Occupat ional Health - [...] Miscellaneous Notes * Telephone Encounter - Joelle Betancourt RN - 08/02/2024 1:01 PM EDT Hospital [...] Specialty: Infectious Disease *Name of Discharging Facility: [facility]. Date of Facility Discharge: 07.27-07.29.24 Date of Interactive Contact and Name of Home Care Giver: 08.02.24 [id number] spoke with patient. *Medication Review Completed: No START taking: acetaminophen (TYLENOL) diazePAM (VALIUM) docusate sodium (COLACE) oxyCODONE (ROXICODONE) STOP taking: anastrozole 1 mg chemo tablet (ARIMIDEX) VERZENIO 150 mg chemo tablet (abemaciclib) Medication Reconciliation Questions/Concerns: Discussed new medication with patient. States she has medication and is taking as ordered. *Follow Up Appointments with Providers: Primary: EMELIA COLLIER APRN-ESPERANZA [phone] TBD Specialty: 08.03.24 0900 Shereen DUFFY Physicians Plastic and Reconstructive Surgery Specialty: 08.16.24 1600 [facility] Infectious Disease - [place], Herman, DO Review [...] 9:30 AM EDT Office Visit [facility] Physicians Plastic and Reconstructive Surgery [facility] [address] [facility] [address] [place] [address] Shereen Smallwood, PANicolasC [address] [address] [place] [address] 10/26/2024 8:30 AM EDT Telephone Visit [facility] Gynecology Oncology, A Department of [place] [address] [address] [facility] [address] [place] [address] Raymond Sepulveda MD 5308 [facility], [address] [place] [address] documented as of this encounter Goals Goal Patient Goal Type Associated Problems Recent Progress Patient-Stated? Author return home General Yes Mariah Gonsalez, RN Note: Evaluation of progress towards goal: progressing, patient will return home at discharge/follow up [facility] Wound care clinic documented as of this encounter Visit Diagnoses Not on filedocumented in this encounter Additional Health Concerns Assessment Noted Time PHQ-9 Depression Total Score: 0 07/15/19 25 8:53 AM EDT documented as of this encounter Care Teams Boat Repairer Relationship Specialty Start Date End Date Emelia Collier, RIG SITE ENGINEER-AUTOMOBILE DEALER [address] [place] [address] PCP - General 11/28/16 documented as of this encounter
--- OUTSIDE RECORDS SUMMARY | 2024-08-25 14:03 | XMS_ITS | Encounter Summary ---
Author Organization [employer] Address [facility] [id number] [address] [place] [address] Care Team Providers Care Questioned Documents Examiner Name Role Phone Amy Collier STONE PAVER-CLIPPING MARKER Primary Care Provider + Reason for Visit * Reason Comments Med Refill Encounter Details Date Type Department Care Team (Late Contact Info) Description 01/24/2022 Refill [facility] Internal Medicine - Family Medicine [address] [place] [phone] Lynda Manuel, STONE PAVER-FACE BURLER [address] [facility] [place] [address] Social History Tobacco Use Types Packs/Day Years [...] Reconstructive Surgery [address] [place] [address] Shereen Smallwood, PANicolasC [address], [address] [place] [address] 10/26/2024 8:30 AM EDT Telephone Visit [facility] Oncology, A Department of [address] [place] [address] Raymond Sepulveda MD [facility], [address] [place] [address] documented as of this encounter Visit Diagnoses Not on filedocumented in this encounter Additional Health Concerns Infection Onset Date Last Indicated Resolved Time Influenza 03/07/2022 03/07/2022 03/14/2022 11:1 2 PM EST documented as of this encounter Care Teams Questioned Documents Examiner Relationship Specialty Start Date End Date Amy Collier APRN-CLIPPING MARKER [address] [place] [address] PCP - General 11/28/16 documented as of this encounter
--- OUTSIDE RECORDS SUMMARY | 2024-08-25 14:03 | XMS_ITS | Clinical Summary ---
Author Organization [facility] Address [address] [place] [address] Phone Care Team Providers Care Legislators Name Role Phone Randy Lu Primary Care [...] quadrivalent 11/30,01/19/2017,01/07/2016,2014,01/05/2014 Influenza, seasonal, injectable 11/14/2019,12/13,12/29/2012 Novel [id number], preservative-free 01/17/2009 Tdap vaccine, age 7 year [...] age to complete this topic Insurance [address] [place] [phone] [facility] PLAN [facility] Care Teams Legislators Relationship Specialty Start Date End Date Randy Lu DO PCP - General 07/21/22
--- OUTSIDE RECORDS SUMMARY | 2024-08-25 14:03 | XMS_ITS | Encounter Summary ---
Author Organization [facility] Address [id number] [address] [place] [address] Care Team Providers Care Programmer Name Role Phone Amy Collier ELECTROPHYSIOLOGY TECH-SOUND ENGINEER AUDIO CONTROL Primary Care Provider + Encounter Details Date Type Department Care Team (Late st Contact Info) Description 12/25/2023 Orders Only [facility] Infectious Disease [address] [facility] [address] [place] [address] External, Scanning Provider Social History Tobacco Use Types Packs/Day Years Used Date Smoking Tobacco: Never Smokeless Tobacco: Never Alcohol Use Standard Drinks/Week Comments Yes 0 (1 standard drink = 0.6 oz pur e alcohol) Socially [facility] Utilities Answer Date Recorded In the past 12 months has [employer] electric, gas, oil, or water company threatened [...] often do you attend chur ch or congregation services? More than 4 times per year [...] Answer Date Recorded Total Score 0 03/07/2022 [facility] [place] of Occupat ional Health - Occupational Stress [...] [facility] Physicians Plastic and Reconstructive Surgery [address] [place] [address] [address] [place] [address] Shereen Smallwood PA-C 5308 [facility] [address] [place] [address] 10/26/2024 8:30 AM EDT Telephone Visit [facility] Gynecology Oncology, A Department of [address] [place] [address] [place] [address] [place] [address], [address] [place], [place] [phone] documented as of this encounter Procedures Procedure Name Priority Date/Time Associated Diagnosis Comments PLATELET COUNT Routine 12/24/2023 WBC Routine 12/24/2023 CREATININE, SERUM Routine 12/24/2023 documented in this encounter Results * Platelet count (12/24/2023) External Platelet Count 163 150 - 450 MANUALLY TRANSCRIBED RESULTS Blood 12/24/2023 us Scanning Provider External LAB BLOOD ORDERABLES Final Result Performing Organization Address City/[facility] de Phone Number MANUALLY TRANSCRIBED RESULTS * WBC (12/24/2023) External Wbc Count 4.3 4.0 - 11.0 MANUALLY TRANSCRIBED RESULTS Blood 12/24/2023 us Scanning Provider External LAB BLOOD ORDERABLES Final Result Performing Organization Address [facility] de Phone Number MANUALLY TRANSCRIBED RESULTS * (ABNORMAL) Creatinine includes GFR, serum (12/24/2023) External Creatinine 1.20(A) 0.55 - 1.02 MANUALLY TRANSCRIBED RESULTS Blood 12/24/2023 us Scanning Provider External LAB BLOOD ORDERABLES Final Result Performing Organization Address [facility] de Phone Number MANUALLY TRANSCRIBED RESULTS documented in this encounter Visit Diagnoses Not on filedocumented in this encounter Additional Health Concerns Assessment Noted Time PHQ-9 Depression Total Score: 0 03/07/19 23 11:14 AM EST documented as of this encounter Care Teams Programmer Relationship Specialty Start Date End Date Amy Collier APRN-SOUND ENGINEER AUDIO CONTROL [address] [place] [address] PCP - General 11/28/16 documented as of this encounter
--- OUTSIDE RECORDS SUMMARY | 2024-08-25 14:03 | XMS_ITS | Encounter Summary ---
Author Organization [facility] Address [address] [place] [address] Care Team Providers Care Instrument Maintenance Supervisor Name Role Phone Randy Lu MD Primary Care Provider Encounter Details Date Type Department Care Team (Late Contact Info) Description 04/07/2024 Abstract [facility] OB [address] [place] [address] Evan Thompson DO [facility] [place] [phone] Social History Tobacco Use Types Packs/Day Years [...] 06/12/2025 10:00 AM EDT Office Visit [facility] OB [address] [place] [address] Evan Thompson DO [facility] [address] [phone] documented as of this encounter Visit Diagnoses Not on filedocumented in this encounter Care Teams Instrument Maintenance Supervisor Relationship Specialty Start Date End Date Randy Lu MD PCP - General Family Medicine 04/02/23 documented as of this encounter
--- OUTSIDE RECORDS SUMMARY | 2024-08-25 14:03 | XMS_ITS | Encounter Summary ---
Author Organization [employer] Sys tem Address [facility] [place][id number] [address] [place] [address] Care Team Providers Care Senior Integration Architect Name Role Phone Amy Collier TUBE BALANCER-PUSHCART PEDDLER Primary Care Provider + Encounter Details Date Type Department Care Team (Late st Contact Info) Description 05/25/2024 Telephone [facility]ive [facility] [address] [facility] [address] [place] [address] Shereen Mortensen PA-C [address], [facility] [address] [place] [address] Social History Tobacco Use Types Packs/Day Years Used Date Smoking Tobacco: Never Passive Smoke Exposure: Past Smokeless Tobacco: Never Alcohol Use Standard Drinks/Week Comments Yes 0 (1 standard drink = 0.6 oz pur e alcohol) Socially [facility] Utilities Answer Date Recorded In the past 12 months has [employer], gas, oil, or water [employer] threatened to shut off services in your [...] often do you attend chur ch or yarsani services? More than 4 times per year [...] Total Score 2 03/30/2024 [facility] - Occupational Stress Questionnaire Answer Date Recorded [...] you need help finding a [facility] career [facility] and/or a training [...] me that she was currently admitted to [facility] with fever and chills. Per patient, [...] her to provide my number to the social security benefits interviewer and I can fax the current completed [facility] paperwork to them to submit so that the vac can be delivered to the hospital prior to her discharge. We will plan to schedule her for follow up in the office pending timing of her discharge from [facility]. SHEREEN MORTENSEN PA-C documented in this encounter Plan of Treatment Upcoming Encounters Date Type Department Care Team (Late st Contact Info) Description 08/29/2024 9:30 AM EDT Office Visit [facility] Plastic and Reconstructive Surgery [address] [facility] [address] [place] [phone] Shereen Mortensen PA-C 5308 [facility], [address] [place] [address] 10/26/2024 8:30 AM EDT [facility], A Department of [facility] [address] [facility] [address] [place] [address] Raymond Sepulveda MD 5308 [facility], [address] [place] [address] documented as of this encounter [...] documented as of this encounter Care Teams Senior Integration Architect Relationship Specialty Start Date End Date Amy Collier APRN-PUSHCART PEDDLER [address] [place] [address] PCP - General 11/28/16 documented as of this encounter
--- OUTSIDE RECORDS SUMMARY | 2024-08-25 14:03 | XMS_ITS | Encounter Summary ---
Author Organization [facility] Address [id number] [address] [place] [address] Care Team Providers Care Fluid Pump Operator Name Role Phone Amy Collier PAN CLEANER-SHEET IRONWORKER Primary Care Provider + Encounter Details Date Type Department Care Team (Late st Contact Info) Description 05/27/2024 Orders Only [facility] Internal Medicine - Family Medicine [address] [place] [address] Ref Prov, [place] [address] Social History Tobacco Use Types Packs/Day Years [...] Answer Date Recorded Total Score 2 03/30/2024 [facility] of Occupat ional Health - [...] Recorded Do you need help finding a [facility] career center and/or a training program? No [...] Office Visit [facility] Physicians Plastic and Reconstructive Surgery [address] [place] [address] [address] [place] [address] Shereen Smallwood PA-C 5308 [facility], [facility] [address] [place] [address] 10/26/2024 8:30 AM EDT Telephone Visit [facility] Gynecology Oncology, A Department of [address] [place] [address] Raymond Sepulveda MD 5308 [facility], [address] [place], [place] [phone] documented as of this encounter Goals Goal Patient Goal Type Associated Problems Recent Progress Patient-Stated? Author return home General Yes Mariah Gonslaez, RN Note: Evaluation of progress towards goal: progressing, patient will return home at discharge/follow up [facility] documented as of [...] documented as of this encounter Care Teams Fluid Pump Operator Relationship Specialty Start Date End Date Amy Collier, PAN CLEANER-SHEET IRONWORKER [address] [place] [address] PCP - General 11/28/16 documented as of this encounter
--- OUTSIDE RECORDS SUMMARY | 2024-08-25 14:03 | XMS_ITS | Encounter Summary ---
Author Organization [employer] Address [id number] [address] [place] [address] Care Team Providers Care Software Design Manager Name Role Phone Amy Collier SUPERVISOR MALT HOUSE-ALTERATION WORKER Primary Care Provider + Reason for Referral * Diagnostic Imaging (Routine) - Pending Review Specialty Diagnoses / Procedures Referred By Contac t Referred To Contact Radiology Diagnoses Pain Procedures NON [facility] PET CT WHOLE BODY [facility] [address] [place] [phone] Phone: tel: fax: Referral ID Status Reason Start Date Expiration Date V isits Requested Visits Authorized [id number] Pending Review 06/12/2024 06/12/2025 1 1 Encounter Details Date Type Department Care Team (Late st Contact Info) Description 06/12/2024 Orders Only [facility] [address] [place] [phone] Transcribe, Orders Support User Pain (Primary [...] often do you attend chur ch or latter-day services? More than 4 times per year 02/27/2022 Do you belong to any clubs o r organizations such as jehovah's witness groups, unions, fraternal or athletic groups, or [...] 2 03/30/2024 [facility] of Occupat ional Health - Occupational [...] Recorded Do you need help finding a [facility] career center and/or a training program? [...] Plastic and Reconstructive Surgery [address] [facility] [address] [place] [phone] Shereen Smallwood PA-C [address], [facility] [address] [place] [address] 10/26/2024 8:30 AM EDT Telephone Visit [facility] Gynecology Oncology, A Department of [facility] [address] [facility] [place] [address] Raymond Sepulveda MD [address] [facility], [address] [place] [address] documented as of this encounter Goals Goal Patient Goal Type Associated Problems Recent Progress Patient-Stated? Author return home General Yes Mariah Gonsalez, RN Note: Evaluation of progress towards goal: progressing, patient will return home at discharge/follow up [facility] Wound care clinic documented as [...] documented as of this encounter Care Teams Software Design Manager Relationship Specialty Start Date End Date Amy Collier APRN-ALTERATION WORKER [address] [place] [address] PCP - General 11/28/16 documented as of this encounter
--- OUTSIDE RECORDS SUMMARY | 2024-08-25 14:03 | XMS_ITS | Encounter Summary ---
Author Organization [employer] Address [facility] [place]-[id number] [address] [place] [address] Care Team Providers Care Double Spindle Shaper Operator Name Role Phone Amy Collier J2EE SOFTWARE ENGINEER-SERVICE CASHIER Primary Care Provider + Reason for Referral * Diagnostic Imaging (Routine) - Pending Review Specialty Diagnoses / Procedures Referred By Contac t Referred To Contact Radiology Diagnoses Pain Procedures CT abdomen and pelvis with contrast [facility] [address] [place] [phone] Phone: tel: fax: Referral ID Status Reason Start Date Expiration Date V isits Requested Visits Authorized [id number] Pending Review 06/13/2024 06/13/2025 1 1 * Diagnostic Imaging (Routine) - Pending Review Specialty Diagnoses / Procedures Referred By Contac t Referred To Contact Radiology Diagnoses Pain Procedures CT chest with contrast [facility] [address] [place] [phone] Phone: tel: fax: Referral ID Status Reason Start Date Expiration Date V isits Requested Visits Authorized [id number] Pending Review 06/13/2024 06/13/2025 1 1 Encounter Details Date Type Department Care Team ([facility] st Contact Info) Description 06/13/2024 Orders Only [facility] [address] [place] [phone] Transcribe, Orders Support User Pain (Primary Dx) Social History Tobacco Use Types Packs/Day Years Used Date Smoking Tobacco: Never Passive Smoke Exposure: Past Smokeless Tobacco: Never Alcohol Use Standard Drinks/Week Comments Yes 0 (1 standard drink = 0.6 oz pur e alcohol) Socially [facility] Utilities Answer Date Recorded In [...] week 02/27/2022 How often do you attend [facility] or [facility] services? More than 4 times [...] Answer Date Recorded Total Score 2 03/30/2024 [facility] of Occupat ional Health - Occupational Stress [...] Do you need help finding a [facility] [email or web address] center and/or a training program? No 02/27/2022 [...] Reconstructive Surgery [address] [place] [address] Shereen Smallwood, PANicolasC [address], [address] [place] [address] 10/26/2024 8:30 AM EDT Telephone Visit [facility] On[facility], A Department of [address] [place] [address] Raymond Sepulveda MD [address]308 [facility], [address] [facility] [place] [address] documented as of this encounter [...] documented as of this encounter Care Teams Double Spindle Shaper Operator Relationship Specialty Start Date End Date Amy Collier, J2EE SOFTWARE ENGINEER-SERVICE CASHIER [address] [place] [address] PCP - General 11/28/16 documented as of this encounter
--- OUTSIDE RECORDS SUMMARY | 2024-08-25 14:03 | XMS_ITS | Encounter Summary ---
Author Organization [employer] Address [id number] [address] [place] [address] Care Team Providers Care Extruding Press Operator Name Role Phone Amy Collier SKEIN YARN DYER HELPER-RESEARCH EXECUTIVE Primary Care Provider + Encounter Details Date Type Department Care Team (Late st Contact Info) Description 02/25/2022 [facility] Family Medicine [address] [place] [address] Radha Tineo MA Social History [...] week 02/27/2022 How often do you attend [facility] or yarsanism services? More than 4 [...] Answer Date Recorded Total Score 0 02/27/2022 [facility] of Occupat ional Health [...] EST Patient notified and understands. Transferred to [facility] to get scheduled for a [...] 08/29/2024 9:30 AM EDT Office Visit [facility] Physicians Plastic and Reconstructive Surgery [address] [facility] [address] [place] [phone] Shereen Smallwood, PA-C [address] [facility], [facility] [address] [place] [phone] 10/26/2024 8:30 AM EDT Telephone Visit [facility] Gynecology Oncology, A Department of [place] [address] [facility] [address] [place] [phone] Raymond Sepulveda MD [address] [facility], [address] [place], [place] [id number] documented as of this encounter Visit Diagnoses Not on filedocumented in this encounter Additional Health Concerns Infection Onset Date Last Indicated Resolved Time Influenza 03/07/2022 03/07/2022 03/14/2022 11:1 2 PM EST Assessment Noted Time PHQ-9 Depression Total Score: 2 02/01/20 22 9:21 AM EST documented as of this encounter Care Teams Extruding Press Operator Relationship Specialty Start Date End Date Amy Collier, SKEIN YARN DYER HELPER-RESEARCH EXECUTIVE [address] [place] [address] PCP - General 11/28/16 documented as of this encounter
--- OUTSIDE RECORDS SUMMARY | 2024-08-25 14:03 | XMS_ITS | Encounter Summary ---
Author Organization [employer] Address [facility]-[id number] [address] [place] [address] Care Team Providers Care Account Leader Name Role Phone Amy Collier UX UI DESIGNER-ROBOTIC TOY INVENTOR Primary Care Provider + Encounter Details Date Type Department Care Team (Late st Contact Info) Description 08/02/2024 [facility]phone [facility] - Family Medicine [address] [place] [address] Mela Berrios RN Social History Tobacco Use Types Packs/Day Years Used Date Smoking Tobacco: Never Passive Smoke Exposure: Past Smokeless Tobacco: Never Alcohol Use Standard Drinks/Week Comments Yes 0 (1 standard drink = 0.6 oz pur e alcohol) Socially [facility] Utilities Answer Date Recorded In the past 12 months has [employer] electric, gas, oil, or water company threatened [...] any clubs o r organizations such as taoism groups, unions, fraternal or athletic groups, or [...] Answer Date Recorded Total Score 0 07/14/2024 [facility] of Occupat ional Health - Occupational Stress [...] Description 08/29/2024 9:30 AM EDT Office Visit [facility] Physicians Plastic and Reconstructive Surgery [address] [facility] [address] [place] [address] Shereen Smallwood, PA-C [address] [facility], [address] [place] [address] 10/26/2024 8:30 AM EDT Telephone Visit [facility] Gynecology Oncology, A Department of [place] [address] [facility] [address] [place] [phone] Raymond Sepulveda MD [address] [facility], [address] [place], [place] [phone] documented as of this encounter Goals Goal Patient Goal Type Associated Problems Recent Progress Patient-Stated? Author return home General Yes Mariah Gonsalez, OC Note: Evaluation of progress towards goal: progressing, patient will return home at discharge/follow up [facility] W[facility] documented as of this encounter Visit Diagnoses Not on filedocumented in this encounter Additional Health Concerns Assessment Noted Time PHQ-9 Depression Total Score: 0 07/15/19 25 8:53 AM EDT documented as of this encounter Care Teams Account Leader Relationship Specialty Start Date End Date Amy Collier, UX UI DESIGNER-ROBOTIC TOY INVENTOR [address] [facility] [place] [address] PCP - General 11/28/16 documented as of this encounter
--- OUTSIDE RECORDS SUMMARY | 2024-08-25 14:03 | XMS_ITS | Encounter Summary ---
Author Organization [facility] Address [address] [place] [address] Care Team Providers Care Media Liaison Officer Name Role Phone Randy Lu MD Primary Care Provider [phone] Encounter Details Date Type Department Care Team (Late st Contact Info) Description 06/07/2024 Orders Only [facility] [address] [place] [place] [address] Nahomy Watson LPN [address] [facility] Padmaja BENITEZ [facility] Social History Tobacco Use Types Packs/Day [...] 06/12/2025 10:00 AM EDT Office Visit [facility] OB [address] [place] [place] [address] Evan Thompson [address] [facility] [address] Padmaja Benitez, [facility] documented as of this encounter Procedures Procedure Name Priority Date/Time Associated Diagnosis Comments PAP SMEAR Routine 06/01/2024 12:00 AM EDT documented in this encounter Results * Pap Smear (06/01/2024 12:00 AM EDT) Swab Cervical swab / Unknown Jay Nurse [facility] CYTOLOGY ORDERABLES Final Result EXTERNAL LAB documented in this encounter Visit Diagnoses Not on filedocumented in this encounter Care Teams Media Liaison Officer Relationship Specialty Start Date End Date Randy Lu MD PCP - General Family Medicine 04/02/23 documented as of this encounter
--- OUTSIDE RECORDS SUMMARY | 2024-08-25 14:03 | XMS_ITS | Encounter Summary ---
Author Organization [facility] [place]-[id number] [address] [place] [address] Care Team Providers Care Tie Man Name Role Phone Amy Collier TOP DISTRIBUTION EXECUTIVE-DYE REEL OPERATOR Primary Care Provider + Encounter Details Date Type Department Care Team (Late st Contact Info) Description 06/13/2024 Orders Only [facility] Internal Medicine - Family Medicine [address] [place] [phone] Ref Prov, [place] [address] Social History Tobacco Use Types Packs/Day Years [...] any clubs o r organizations such as zoroastrianism groups, unions, fraternal or athletic groups, or [...] Date Recorded Total Score 2 03/30/2024 [facility] of Occupat ional Health - [...] Recorded Do you need help finding a [facility] and/or a training [...] Description 08/29/2024 9:30 AM EDT Office Visit [facility] Physicians Plastic and Reconstructive Surgery [address] [place] [address] [address] [place] [address] Shereen Smallwood PA-C [address] [facility], [facility] [address] [place] [address] 10/26/2024 8:30 AM EDT Telephone Visit [facility] Gynecology Oncology, A Department of [address] [place] [phone] Raymond Sepulveda MD [address] [facility], [address] [place], [place] [phone] documented as of this encounter Goals Goal [...] documented as of this encounter Care Teams Tie Man Relationship Specialty Start Date End Date Amy Collier, TOP DISTRIBUTION EXECUTIVE-DYE REEL OPERATOR [address] [place] [address] PCP - General 11/28/16 documented as of this encounter
--- OUTSIDE RECORDS SUMMARY | 2024-08-25 14:04 | XMS_ITS | Encounter Summary ---
Author Organization [facility] Address [address] [place] [address] Phone Care Team Providers Care Rn Night Name Role Phone Randy Lu DO Primary Care Provider Encounter Details Date Type Department Care Team (Late st Contact Info) Description 09/20/2021 Orders Only [facility] [address] [place] [place] [address] Conversion, Onbase Social History Tobacco Use Types [...] on filedocumented in this encounter Care Teams Rn Night Relationship Specialty Start Date End Date Randy Lu DO PCP - General 07/21/22 documented as of this encounter
--- OUTSIDE RECORDS SUMMARY | 2024-08-25 14:04 | XMS_ITS | Encounter Summary ---
Author Organization [facility] Address [address] [place] [address] Care Team Providers Care Buffing Wheel Presser Name Role Phone Randy Lu MD Primary Care Provider Encounter Details Date Type Department Care Team ([facility] Contact Info) Description 07/29/2023 Abstract [facility] [address] [place] [address] Evan Thompson DO [address] [place], [facility] Social History Tobacco Use Types Packs/Day Years [...] EDT Office Visit [facility] [address] [place] [address] Evan Thompson DO [address] [place], [place] [id number] documented as of this encounter Visit Diagnoses Not on filedocumented in this encounter Care Teams Buffing Wheel Presser Relationship Specialty Start Date End Date Randy Lu MD PCP - General Family Medicine 04/02/23 documented as of this encounter
--- OUTSIDE RECORDS SUMMARY | 2024-08-25 14:04 | XMS_ITS | Patient Health Record ---
Author Organization [facility] in [place] Address [address] [place] [address] Care Team Providers Care Balance Truing Inspector Name Role Phone Mar GUY Lynda Primary Care Provider Unavailranjith nuñez JayyLatesha tarangoorva Unavailable [phone] Results Component Value Reference Range Notes Manual Differential (Not yet reviewed by provider) Interpretation: Performing Lab: Notes/Report: [facility] , Segmented Neutrophils % Manual 72.0 Band Neutrophils % 4.0 0-5 % Lymphocytes Percent Manual 17.0 20.5-60.0 % Monocytes Percent Manual 6.0 1.7-12.0 % Eosinophils Percent Manual 0.0 0.9-7.0 % Basophils Percent Manual 1.0 0.2-2.0 % Segmented Neut Absolute Manual 9.36 1.4-6.5 10 3/uL Band Neutrophils Absolute 0.5 0.0-0.3 10 3/uL Lymphocytes Absolute Manual 2.21 1.20-3.80 10 3/uL Monocytes Absolute Manual 0.78 0.30-0.80 10 3/uL Eosinophils Absolute Manual 0.00 0.00-0.70 10 3/uL Basophils Abs Manual 0.13 0.00-0.10 1 0 3/uL Hypochromasia 1+ Anisocytosis 1+ Tear Drop Cells 1+ Performing Lab: see note - [facility] LB MAGNESIUM (Not yet reviewed by provider) Interpretation: Performing Lab: Notes/Report: [facility] , Magnesium 1.8 1.8-2.4 mg/dL Performing Lab: see note ML - [facility] LB PROF 14(COMP METB) (Not yet reviewed by provider) Interpretation: Performing Lab: Notes/Report: [facility] , Sodium 144 136-145 mmol/L Potassium 3.0 3.5-5.1 mmol/L Chloride 104 98-107 mmol/L Carbon Dioxide 29.9 21.0-32.0 mmol/L Anion Gap 13.1 Glucose 123 74-106 mg/dL Blood Urea Nitrogen 12.0 7.0-18.0 mg/dL Creatinine 0.90 0.55-1.02 mg/dL Estimated GFR ( Joanna >60 >=60 Estimated GFR (Non- Le >60 >=60 BUN Creatinine Ratio 13.3 Calcium 8.8 8.5-10.1 mg/dL Bilirubin Total 0.6 0.2-1.0 mg/dL Aspartate Amino Transferase 24 15-37 U/L Alanine Aminotransferase 34 14-59 U/L Alkaline Phosphatase 79 46-116 U/L Total Protein 6.3 6.4-8.2 g/dL Albumin Level 3.4 3.4-5.0 g/dL Globulin 2.9 Albumin Globulin Ratio 1.2 Performing Lab: see note ML - [facility] LB TSH (Not yet reviewed by pro vider) Interpretation: Performing Lab: Notes/Report: [facility] , Thyroid Stimulating Hormone 3.762 0.358-3.740 uIU/mL Performing Lab: see note - [facility] LB CA echo doppler complete (No t yet reviewed by provider) Interpretation: Performing Lab: Notes/Report: Source Facility: [place] [address] [place] [address] Cardiology Report Signed Patient: YASMIN JONES MR#: [id number] : 1970 Acct:[id number] Age/Sex: 52 / F ADM Date: 09/11/23 Loc: CARD Attending Dr: Aarti Hope M.D. Ordering Physician: Aarti Hope M.D. Date of Service: 09/11/23 Procedure(s): CA echo doppler complete Accession Number(s): [id number] cc: Aarti Hope M.D.; LYNDA JARQUIN Patient Name: YASMIN JONES MR#: [id number] : 1970 Exam Date: 09/11/2023 Ordering Doctor: AARTI HOPE ECHOCARDIOGRAM REPORT PROCEDURE: CA ECHO DOPPLER COMPLETE INDICATIONS: Cardiotoxic chemotherapy, breast cancer COMPARISON: None. DESCRIPTION: COMPLETE ECHOCARDIOGRAM Real-time transthoracic echocardiography with 2D, M-mode, spectral and color flow Doppler performed. QUALITY: Technical quality was good. LEFT VENTRICLE: Normal chamber size. Mild concentric left ventricular hypertrophy. Normal systolic function. LV EF: Normal left ventricular ejection fraction, (55-60%). DIASTOLIC: Diastolic function is indeterminate. ATRIAL SEPTUM: Visually appears intact. LEFT ATRIUM: Normal chamber size. RIGHT ATRIUM: Normal chamber size. RIGHT VENTRICLE: Normal chamber size. Normal right ventricular systolic function. TRICUSPID VALVE: Normal mobility and thickness. No stenosis with trivial regurgitation. Doppler studies reveal moderately (45-60) elevated right sided pressures. RVSP 50 mmHg (echo 05/15/2023 was 36 mmHg) MITRAL VALVE: Normal mobility and thickness. No evidence of mitral valve stenosis. There is no mitral annular calcification. Trivial mitral regurgitation. AORTIC VALVE: Normal trileaflet appearance. No visible sclerosis. Normal leaflet mobility. No evidence of aortic valve stenosis. No aortic regurgitation. AORTIC ROOT: Normal diameter and appearance. Ascending aorta is normal in size. PULMONIC VALVE: Normal thickness and mobility. No stenosis. No regurgitation. PERICARDIUM: No evidence of pericardial effusion. IVC: IVC is normal in size, does not fully collapse. PLEURA: CONCLUSION: 1. Mild concentric left ventricular hypertrophy with normal systolic function. LVEF is estimated at 55 to 60%. 2. Normal right ventricular size and systolic function. 3. No significant valvular dysfunction. 4. Moderately elevated right-sided pressures. RVSP is 50 mmHg. 5. No pericardial effusion. Adult Echocardiography Procedure Report Left Ventricle LVEDD (3.7 - 5.6 cm): 4.61 cm LVESD (2.2 - 4.0 cm): 3.32 cm LVIVS thickness (0.6 - 1.2 cm): 1.18 cm LVPW thickness (0.5 - 1.0 cm): 1.11 cm E - e': 13.67 LVOT Max Gradient: 6.28 mm[Hg] LVOT Area (cm2): 1.25 m/s Peak Velocity (LVOT): 1.25 m/s Mean Velocity (LVOT): 0.77 m/s LVOT Diameter 2.27 cm Left Atrium LA Volume Index (2D A2C): 33.68 ml/m2 Left Atrium Systolic Dimension: 3.90 cm Mitral Valve MV E to A Ratio: 1.14, 1.12 Right Ventricle Aorta AO Root Diam: 3.15 cm Ascending Ao Diam: 2.98 cm Aortic Valve AoV Area (Peak Stefan): 2.88 cm2, 2.88 cm2 AoV Area (VTI): 2.79 cm2, 2.79 cm2 Peak Velocity(Antegrade Flow): 1.76 m/s Peak Gradient(Antegrade Flow): 12.32 mm[Hg] Mean Velocity(Antegrade Flow): 1.22 m/s Mean Gradient(Antegrade Flow): 6.73 mm[Hg] Velocity Time Integral: 32.14 cm Tricuspid Valve Peak Velocity (Regurgitant Flow): 3.24 m/s Pulmonic Valve Mean Gradient: 3.15 mm[Hg] Mean Velocity: 0.81 m/s Peak Velocity: 1.26 m/s, 1.31 m/s Peak Gradient: 6.86 mm[Hg], 6.31 mm[Hg] Right Atrium Right Atrium Systolic Pressure: 43.90 ml, 43.90 ml Dictated by: Vivian Bazan M.D. on 09/11/2023 at 13:09 Approved by: Vivian Bazan M.D. on 09/11/2023 at 13:13 Dictated By: VIVIAN BAZAN Signed By: 09/11/234 DD/ 12 TD/TT: Pharmacy Account Director: [place] [address] Cardiology Report Signed Patient: YASMIN JONES MR#: [id number] : 1970 Acct:[id number] Age/Sex: 52 / F ADM Date: 09/11/23 Loc: CARD Attending Dr: Arturo Hope M.D. Ordering Physician: Aarti Hope M.D. Date of Service: 09/11/23 Procedure(s): CA ech o doppler complete Accession Number(s): [id number] cc: Aarti Hope M.D.; LYNDA JARQUIN Patient Name: YASMIN JONES MR#: [id number] : 1970 Exam Date: 09/11/2023 Ordering Doctor: AARTI HOPE ECHOCARDIOGRAM REPORT PROCEDURE: CA ECHO DOPPLER COMPLETE INDICATIONS: Cardiotoxic chemotherapy, breast cancer COMPARISON: None. DESCRIPTION: COMPLET E ECHOCARDIOGRAM Real-time transthoracic echocardiography wit h 2D, M-mode, spectral and color flow Doppler performed. QUALITY: Technical quality was good. LEFT VENTRICLE: Normal chamber size. Mild concentric left ventricular hypertrophy. Normal systolic function. LV EF: Normal left ventricular ejection fraction, (55-60%). DIASTOLIC: Diastolic function is indeterminate. ATRIAL SEPTUM: Visually appears intact. LEFT ATRIUM: Normal chamber size. RIGHT ATRIUM: Normal chamber size. RIGHT VENTRICLE: Normal chamber size. Normal right ventricular systolic function. TRICUSPID VALVE: Normal mobility and thickness. No stenosis with trivial regurgitation. Doppler studies reveal moderately (45-60) elevated right sided pressures. RVSP 50 mmHg (echo 05/15/2023 was 36 mmHg) MITRAL VALVE: Normal mobility and thickness. No evidence of mitral valve stenosis. There is n o mitral annular calcification. Trivial mitral regurgitation. AORTIC VALVE: Normal trileaflet appearance. No visible sclerosis. Normal leaflet mobility. No evidence of aortic valve stenosis. No aortic regurgitation. AORTIC ROOT: Normal diameter and appearance. Ascending aorta is normal in size. PULMONIC VALVE: Normal thickness and mobility. No stenosis. No regurgitation. PERICARDIUM: No evidence of pericardial effusion. IVC: IVC is normal i n size, does not fully collapse. PLEURA: CONCLUSION: 1. Mild concentric left ventricular hypertrophy with normal systolic function. LVEF is estimated at 55 to 60%. 2. Normal right ventricular size and systolic function. 3. No significant valvular dysfunction. 4. Moderately elevated right-sided pressures. RVSP is 50 mmHg. 5. No pericardial effusion. Adult Echocardiography Procedure Report Left Ventricle LVEDD (3.7 - 5.6 cm) : 4.61 cm LVESD (2.2 - 4.0 cm) : 3.32 cm LVIVS thickness (0.6 - 1.2 cm): 1.18 cm LVPW thickness (0.5 - 1.0 cm): 1.11 cm E - e': 13.67 LVOT Max Gradient: 6.28 mm[Hg] LVOT Area (cm2): 1.2 5 m/s Peak Velocity (LVOT) : 1.25 m/s Mean Velocity (LVOT) : 0.77 m/s LVOT Diameter 2.27 cm Left Atrium LA Volume Index (2D A2C): 33.68 ml/m2 Left Atrium Systolic Dimension: 3.90 cm Mitral Valve MV E to A Ratio: 1.14, 1.12 Right Ventricle Aorta AO Root Diam: 3.15 cm Ascending Ao Diam: 2.98 cm Aortic Valve AoV Area (Peak Stefan): 2.88 cm2, 2.88 cm2 AoV Area (VTI): 2.79 cm2, 2.79 cm2 Peak Velocity(Antegrade Flow): 1.76 m/s Peak Gradient(Antegrade Flow): 12.32 mm[Hg] Mean Velocity(Antegrade Flow): 1.22 m/s Mean Gradient(Antegrade Flow): 6.73 mm[Hg] Velocity Time Integral: 32.14 cm Tricuspid Valve Peak Velocity (Regurgitant Flow): 3.24 m/s Pulmonic Valve Mean Gradient: 3.15 mm[Hg] Mean Velocity: 0.81 m/s Peak Velocity: 1.26 m/s, 1.31 m/s Peak Gradient: 6.86 mm[Hg], 6.31 mm[Hg] Right Atrium Right Atrium Systoli c Pressure: 43.90 ml, 43.90 ml Dictated by: Vivian Bazan M.D. on 09/11/2023 at 13:09 Approved by: Vivian Bazan M.D. on 09/11/2023 at 13:13 Dictated By: VIVIAN BAZAN Signed By: 09/11/23 1314 DD/ 131 TD/TT: Pharmacy Account Director: CBC AUTO DIFF (Not yet revie wed by provider) Interpretation: Performing Lab: Notes/Report: [facility] , White Blood Count 8.1 4.0-11.0 10 3/uL Red Blood Count 2.68 4.20-5.40 10 6/uL Hemoglobin 9.2 12.0-16.0 g/dL Hematocrit 27.3 36.0-48.0 % Mean Corpuscular Volume 101.9 81.0-99.0 fL Mean Corpuscular Hemoglobin 34.3 26.7-34.0 pg Mean Corpuscular HGB Conc 33.7 29.9-35.2 g/dL Red Cell Distribution Width 16.2 11.0-15.0 % Platelet Count 158 150-450 10 3/uL Mean Platelet Volume 11.1 9.5-13.5 fL Performing Lab: see note ML - [facility] LB PROF 14(COMP METB) (Not yet reviewed by provider) Interpretation: Performing Lab: Notes/Report: [facility] , Sodium 139 136-145 mmol/L Potassium 3.0 3.5-5.1 mmol/L Chloride 101 98-107 mmol/L Carbon Dioxide 33.0 21.0-32.0 mmol/L Anion Gap 8.0 Glucose 90 74-106 mg/dL Blood Urea Nitrogen 9.0 7.0-18.0 mg/dL Creatinine 0.95 0.55-1.02 mg/dL Estimated GFR ( Joanna >60 >=60 Estimated GFR (Non- Le >60 >=60 BUN Creatinine Ratio 9.5 Calcium 8.9 8.5-10.1 mg/dL Bilirubin Total 0.6 0.2-1.0 mg/dL Aspartate Amino Transferase 15 15-37 U/L Alanine Aminotransferase 24 14-59 U/L Alkaline Phosphatase 85 46-116 U/L Total Protein 6.4 6.4-8.2 g/dL Albumin Level 3.6 3.4-5.0 g/dL Globulin 2.8 Albumin Globulin Ratio 1.3 Performing Lab: see note ML - [facility] LB Manual Differential (Not yet reviewed by provider) Interpretation: Performing Lab: Notes/Report: [facility] , Segmented Neutrophils % Manual 75.0 Band Neutrophils % 3.0 0-5 % Lymphocytes Percent Manual 11.0 20.5-60.0 % Monocytes Percent Manual 9.0 1.7-12.0 % Eosinophils Percent Manual 1.0 0.9-7.0 % Basophils Percent Manual 1.0 0.2-2.0 % Segmented Neut Absolute Manual 6.07 1.4-6.5 10 3/uL Band Neutrophils Absolute 0.2 0.0-0.3 10 3/uL Lymphocytes Absolute Manual 0.89 1.20-3.80 10 3/uL Monocytes Absolute Manual 0.72 0.30-0.80 10 3/uL Eosinophils Absolute Manual 0.08 0.00-0.70 10 3/uL Basophils Abs Manual 0.08 0.00-0.10 1 0 3/uL Anisocytosis 1+ Performing Lab: see note ML - [facility] LB PROF 14(COMP METB) (Not yet reviewed by provider) Interpretation: Performing Lab: Notes/Report: [facility] , Sodium 138 136-145 mmol/L Potassium 3.2 3.5-5.1 mmol/L Chloride 103 98-107 mmol/L Carbon Dioxide 28.4 21.0-32.0 mmol/L Anion Gap 9.8 Glucose 114 74-106 mg/dL Blood Urea Nitrogen 16.0 7.0-18.0 mg/dL Creatinine 0.85 0.55-1.02 mg/dL Estimated GFR ( Joanna >60 >=60 Estimated GFR (Non- Le >60 >=60 BUN Creatinine Ratio 18.8 Calcium 9.2 8.5-10.1 mg/dL Bilirubin Total 0.8 0.2-1.0 mg/dL Aspartate Amino Transferase 23 15-37 U/L Alanine Aminotransferase 35 14-59 U/L Alkaline Phosphatase 75 46-116 U/L Total Protein 6.3 6.4-8.2 g/dL Albumin Level 3.5 3.4-5.0 g/dL Globulin 2.8 Albumin Globulin Ratio 1.2 Performing Lab: see note ML - [facility] LB CBC AUTO DIFF (Not yet revie wed by provider) Interpretation: Performing Lab: Notes/Report: [facility] , White Blood Count 4.4 4.0-11.0 10 3/uL Red Blood Count 2.35 4.20-5.40 10 6/uL Hemoglobin 8.0 12.0-16.0 g/dL Hematocrit 22.7 36.0-48.0 % RESULTS CALLED TO ZENOBIA WASHINGTON RN AT 0842 Mean Corpuscular Volume 96.6 81.0-99.0 fL Mean Corpuscular Hemoglobin 34.0 26.7-34.0 pg Mean Corpuscular HGB Conc 35.2 29.9-35.2 g/dL Red Cell Distribution Width 14.1 11.0-15.0 % Platelet Count 104 150-450 10 3/uL Mean Platelet Volume 10.3 9.5-13.5 fL Performing Lab: see note ML - [facility] LB LAB TESTING (Not yet reviewe d by provider) Interpretation: Performing Lab: Notes/Report: [id number] Cancer Antigen (CA) 15-3 [facility] , Miscellaneous Test COMMENT . Test Ordered: [id number] Cancer Antigen (CA) 15-3 Cancer Antigen 15-3 29.1 [H ] U/mL Reference Range: 0.0-25.0 [facility] Electrochemiluminescence Immunoassay (ECLIA) Values obtained with different assay methods or kits cannot be used interchangeably. Results cannot be interpreted as absolute evidence of the presence or absence of malignant disease. Performed at: - [facility] [id number] [employer] Inspector: Vik Georges PhD, Phone: [phone] Performing Lab: see note - [facility] LB Platelet Count (Not yet revi ewed by provider) Interpretation: Performing Lab: Notes/Report: [facility] , Platelet Count 168 150-450 10 3/uL Performing Lab: see note ML - [facility] LB White Blood Count (Not yet r eviewed by provider) Interpretation: Performing Lab: Notes/Report: [facility] , White Blood Count 2.6 4.0-11.0 10 3/uL Performing Lab: see note - [facility] LB CREATININE (Not yet reviewed by provider) Interpretation: Performing Lab: Notes/Report: [facility] , Creatinine 1.12 0.55-1.02 mg/dL Estimated GFR ( Joanna >60 >=60 mL/min/1.73m 2 Estimated GFR (Non- Le 51 >=60 mL/min/1.73m 2 Performing Lab: see note ML - [facility] LB LIVER PROFILE (Not yet revie wed by provider) Interpretation: Performing Lab: Notes/Report: [facility] , Bilirubin Total 0.8 0.2-1.0 mg/dL Bilirubin Direct 0.2 0.0-0.2 mg/dL Aspartate Amino Transferase 84 15-37 U/L Alanine Aminotransferase 126 14-59 U/L Alkaline Phosphatase 91 46-116 U/L Total Protein 6.6 6.4-8.2 g/dL Albumin Level 3.6 3.4-5.0 g/dL Globulin 3.0 Albumin Globulin Ratio 1.2 Performing Lab: see note ML - [facility] LB CBC AUTO DIFF (Not yet revie wed by provider) Interpretation: Performing Lab: Notes/Report: [facility] , White Blood Count 3.1 4.0-11.0 10 3/uL Red Blood Count 3.07 4.20-5.40 10 6/uL Hemoglobin 9.4 12.0-16.0 g/dL Hematocrit 27.7 36.0-48.0 % Mean Corpuscular Volume 90.2 81.0-99.0 fL Mean Corpuscular Hemoglobin 30.6 26.7-34.0 pg Mean Corpuscular HGB Conc 33.9 29.9-35.2 g/dL Red Cell Distribution Width 17.4 11.0-15.0 % Platelet Count 176 150-450 10 3/uL Mean Platelet Volume 9.1 9.5-13.5 fL Neutrophils Percent Auto 53.0 43.0-75.0 % Lymphocytes Percent Auto 22.5 20.5-60.0 % Monocytes Percent Auto 14.7 1.7-12.0 % Eosinophils Percent Auto 8.5 0.9-7.0 % Basophils Percent Auto 1.0 0.2-2.0 % Immature Granulocytes Pct Auto 0.3 0.0-0.5 % Neutrophils Absolute Auto 1.6 1.4-6.5 10 3/uL Lymphocytes Absolute Auto 0.7 1.2-3.8 10 3/uL Monocytes Absolute Auto 0.5 0.3-0.8 10 3/uL Eosinophils Absolute Auto 0.3 0.0-0.7 10 3/uL Basophils Absolute Auto 0.0 0.0-0.1 10 3/uL Immature Granulocytes Abs Auto 0.01 0.00-0.03 10 3/uL Performing Lab: see note ML - [facility] LB PROF 14(COMP METB) (Not yet reviewed by provider) Interpretation: Performing Lab: Notes/Report: [facility] , Sodium 144 136-145 mmol/L Potassium 3.2 3.5-5.1 mmol/L Chloride 105 98-107 mmol/L Carbon Dioxide 24.8 21.0-32.0 mmol/L Anion Gap 17.4 Glucose 110 74-106 mg/dL Blood Urea Nitrogen 12.0 7.0-18.0 mg/dL Creatinine 0.91 0.55-1.02 mg/dL Estimated GFR ( Joanna >60 >=60 mL/min/1.73m 2 Estimated GFR (Non- Le >60 >=60 mL/min/1.73m 2 BUN Creatinine Ratio 13.2 Calcium 9.3 8.5-10.1 mg/dL Bilirubin Total 0.9 0.2-1.0 mg/dL Aspartate Amino Transferase 76 15-37 U/L Alanine Aminotransferase 122 14-59 U/L Alkaline Phosphatase 96 46-116 U/L Total Protein 6.2 6.4-8.2 g/dL Albumin Level 3.5 3.4-5.0 g/dL Globulin 2.7 Albumin Globulin Ratio 1.3 Performing Lab: see note ML - [facility] LB CBC AUTO DIFF (Not yet revie wed by provider) Interpretation: Performing Lab: Notes/Report: [facility] , White Blood Count 3.1 4.0-11.0 10 3/uL Red Blood Count 2.60 4.20-5.40 10 6/uL Hemoglobin 7.8 12.0-16.0 g/dL Hematocrit 22.6 36.0-48.0 % RESULTS CALLED TO NAYELI SHEPPARD RN IN [place]/ONCOLOGY BY Radha Silva at 1142 Mean Corpuscular Volume 86.9 81.0-99.0 fL Mean Corpuscular Hemoglobin 30.0 26.7-34.0 pg Mean Corpuscular HGB Conc 34.5 29.9-35.2 g/dL Red Cell Distribution Width 16.6 11.0-15.0 % Platelet Count 137 150-450 10 3/uL Mean Platelet Volume 9.5 9.5-13.5 fL Neutrophils Percent Auto 60.6 43.0-75.0 % Lymphocytes Percent Auto 19.0 20.5-60.0 % Monocytes Percent Auto 13.8 1.7-12.0 % Eosinophils Percent Auto 5.2 0.9-7.0 % Basophils Percent Auto 0.7 0.2-2.0 % Immature Granulocytes Pct Auto 0.7 0.0-0.5 % Neutrophils Absolute Auto 1.9 1.4-6.5 10 3/uL Lymphocytes Absolute Auto 0.6 1.2-3.8 10 3/uL Monocytes Absolute Auto 0.4 0.3-0.8 10 3/uL Eosinophils Absolute Auto 0.2 0.0-0.7 10 3/uL Basophils Absolute Auto 0.0 0.0-0.1 10 3/uL Immature Granulocytes Abs Auto 0.02 0.00-0.03 10 3/uL Performing Lab: see note ML - [facility] LB PROF 14(COMP METB) (Not yet reviewed by provider) Interpretation: Performing Lab: Notes/Report: [facility] , Sodium 140 136-145 mmol/L Potassium 3.3 3.5-5.1 mmol/L Chloride 104 98-107 mmol/L Carbon Dioxide 27.9 21.0-32.0 mmol/L Anion Gap 11.4 Glucose 115 74-106 mg/dL Blood Urea Nitrogen 15.0 7.0-18.0 mg/dL Creatinine 0.84 0.55-1.02 mg/dL Estimated GFR ( Joanna >60 >=60 mL/min/1.73m 2 Estimated GFR (Non- Le >60 >=60 mL/min/1.73m 2 BUN Creatinine Ratio 17.9 Calcium 8.9 8.5-10.1 mg/dL Bilirubin Total 1.4 0.2-1.0 mg/dL Aspartate Amino Transferase 30 15-37 U/L Alanine Aminotransferase 56 14-59 U/L Alkaline Phosphatase 74 46-116 U/L Total Protein 6.1 6.4-8.2 g/dL Albumin Level 3.4 3.4-5.0 g/dL Globulin 2.7 Albumin Globulin Ratio 1.3 Performing Lab: see note ML - [facility] LB TSH W/ REFLEX FT4 (Not yet r eviewed by provider) Interpretation: Performing Lab: Notes/Report: [facility] , TSH W/ REFLEX FT4 2.132 0.358-3.740 uIU/mL Performing Lab: see note - [facility] LB BILIRUBIN CONJUGATED (DIRECT ) (Not yet reviewed by provider) Interpretation: Performing Lab: Notes/Report: [facility] , Bilirubin Direct 0.2 0.0-0.2 mg/dL Performing Lab: see note - [facility] LB CBC AUTO DIFF (Not yet revie wed by provider) Interpretation: Performing Lab: Notes/Report: [facility] , White Blood Count 3.8 4.0-11.0 10 3/uL Red Blood Count 2.63 4.20-5.40 10 6/uL Hemoglobin 7.8 12.0-16.0 g/dL Hematocrit 23.2 36.0-48.0 % RESULTS CALLED TO NAYELI SHEPPARD RN @BY Anita Berrios at 1100 Mean Corpuscular Volume 88.2 81.0-99.0 fL Mean Corpuscular Hemoglobin 29.7 26.7-34.0 pg Mean Corpuscular HGB Conc 33.6 29.9-35.2 g/dL Red Cell Distribution Width 16.2 11.0-15.0 % Platelet Count 161 150-450 10 3/uL Mean Platelet Volume 9.7 9.5-13.5 fL Neutrophils Percent Auto 62.7 43.0-75.0 % Lymphocytes Percent Auto 13.3 20.5-60.0 % Monocytes Percent Auto 15.5 1.7-12.0 % Eosinophils Percent Auto 6.9 0.9-7.0 % Basophils Percent Auto 0.8 0.2-2.0 % Immature Granulocytes Pct Auto 0.8 0.0-0.5 % Neutrophils Absolute Auto 2.4 1.4-6.5 10 3/uL Lymphocytes Absolute Auto 0.5 1.2-3.8 10 3/uL Monocytes Absolute Auto 0.6 0.3-0.8 10 3/uL Eosinophils Absolute Auto 0.3 0.0-0.7 10 3/uL Basophils Absolute Auto 0.0 0.0-0.1 10 3/uL Immature Granulocytes Abs Auto 0.03 0.00-0.03 10 3/uL Performing Lab: see note ML - [facility] LB PROF 14(COMP METB) (Not yet reviewed by provider) Interpretation: Performing Lab: Notes/Report: [facility] , Sodium 142 136-145 mmol/L Potassium 3.4 3.5-5.1 mmol/L Chloride 109 98-107 mmol/L Carbon Dioxide 26.8 21.0-32.0 mmol/L Anion Gap 9.6 Glucose 92 74-106 mg/dL Blood Urea Nitrogen 11.0 7.0-18.0 mg/dL Creatinine 0.76 0.55-1.02 mg/dL Estimated GFR ( Joanna >60 >=60 mL/min/1.73m 2 Estimated GFR (Non- Le >60 >=60 mL/min/1.73m 2 BUN Creatinine Ratio 14.5 Calcium 8.7 8.5-10.1 mg/dL Bilirubin Total 1.1 0.2-1.0 mg/dL Aspartate Amino Transferase 22 15-37 U/L Alanine Aminotransferase 36 14-59 U/L Alkaline Phosphatase 70 46-116 U/L Total Protein 5.9 6.4-8.2 g/dL Albumin Level 3.3 3.4-5.0 g/dL Globulin 2.6 Albumin Globulin Ratio 1.3 Performing Lab: see note - [facility] LB TSH W/ REFLEX FT4 (Not yet r eviewed by provider) Interpretation: Performing Lab: Notes/Report: [facility] , TSH W/ REFLEX FT4 1.691 0.358-3.740 uIU/mL Performing Lab: see note - [facility] LB Manual Differential (Not yet reviewed by provider) Interpretation: Performing Lab: Notes/Report: [facility] , Segmented Neutrophils % Manual 64.0 43.0-75.0 Lymphocytes Percent Manual 20.0 20.5-60.0 % Monocytes Percent Manual 8.0 1.7-12.0 % Eosinophils Percent Manual 8.0 0.9-7.0 % Basophils Percent Manual 0.0 0.2-2.0 % Segmented Neut Absolute Manual 2.62 1.4-6.5 10 3/uL Lymphocytes Absolute Manual 0.82 1.20-3.80 10 3/uL Monocytes Absolute Manual 0.32 0.30-0.80 10 3/uL Eosinophils Absolute Manual 0.32 0.00-0.70 10 3/uL Basophils Abs Manual 0.00 0.00-0.10 1 0 3/uL Performing Lab: see note - [facility] LB BILIRUBIN CONJUGATED (DIRECT ) (Not yet reviewed by provider) Interpretation: Performing Lab: Notes/Report: [facility] , Bilirubin Direct 0.2 0.0-0.2 mg/dL Performing Lab: see note - [facility] LB CBC AUTO DIFF (Not yet revie wed by provider) Interpretation: Performing Lab: Notes/Report: [facility] , White Blood Count 4.4 4.0-11.0 10 3/uL Red Blood Count 2.97 4.20-5.40 10 6/uL Hemoglobin 9.1 12.0-16.0 g/dL Hematocrit 27.1 36.0-48.0 % Mean Corpuscular Volume 91.2 81.0-99.0 fL Mean Corpuscular Hemoglobin 30.6 26.7-34.0 pg Mean Corpuscular HGB Conc 33.6 29.9-35.2 g/dL Red Cell Distribution Width 17.3 11.0-15.0 % Platelet Count 199 150-450 10 3/uL Mean Platelet Volume 9.6 9.5-13.5 fL Neutrophils Percent Auto 67.5 43.0-75.0 % Lymphocytes Percent Auto 15.8 20.5-60.0 % Monocytes Percent Auto 9.7 1.7-12.0 % Eosinophils Percent Auto 6.1 0.9-7.0 % Basophils Percent Auto 0.7 0.2-2.0 % Immature Granulocytes Pct Auto 0.2 0.0-0.5 % Neutrophils Absolute Auto 3.0 1.4-6.5 10 3/uL Lymphocytes Absolute Auto 0.7 1.2-3.8 10 3/uL Monocytes Absolute Auto 0.4 0.3-0.8 10 3/uL Eosinophils Absolute Auto 0.3 0.0-0.7 10 3/uL Basophils Absolute Auto 0.0 0.0-0.1 10 3/uL Immature Granulocytes Abs Auto 0.01 0.00-0.03 10 3/uL Performing Lab: see note ML - [facility] LB PROF 14(COMP METB) (Not yet reviewed by provider) Interpretation: Performing Lab: Notes/Report: [facility] , Sodium 140 136-145 mmol/L Potassium 3.8 3.5-5.1 mmol/L Chloride 105 98-107 mmol/L Carbon Dioxide 25.0 21.0-32.0 mmol/L Anion Gap 13.8 Glucose 87 74-106 mg/dL Blood Urea Nitrogen 16.0 7.0-18.0 mg/dL Creatinine 0.99 0.55-1.02 mg/dL Estimated GFR ( Joanna >60 >=60 mL/min/1.73m 2 Estimated GFR (Non- Le 59 >=60 mL/min/1.73m 2 BUN Creatinine Ratio 16.2 Calcium 9.2 8.5-10.1 mg/dL Bilirubin Total 1.1 0.2-1.0 mg/dL Aspartate Amino Transferase 18 15-37 U/L Alanine Aminotransferase 30 14-59 U/L Alkaline Phosphatase 73 46-116 U/L Total Protein 6.4 6.4-8.2 g/dL Albumin Level 3.8 3.4-5.0 g/dL Globulin 2.6 Albumin Globulin Ratio 1.5 Performing Lab: see note - [facility] LB CBC AUTO DIFF (Not yet revie wed by provider) Interpretation: Performing Lab: Notes/Report: [facility] , White Blood Count 4.1 4.0-11.0 10 3/uL Red Blood Count 2.75 4.20-5.40 10 6/uL Hemoglobin 8.3 12.0-16.0 g/dL Hematocrit 25.1 36.0-48.0 % Mean Corpuscular Volume 91.3 81.0-99.0 fL Mean Corpuscular Hemoglobin 30.2 26.7-34.0 pg Mean Corpuscular HGB Conc 33.1 29.9-35.2 g/dL Red Cell Distribution Width 17.4 11.0-15.0 % Platelet Count 181 150-450 10 3/uL Mean Platelet Volume 9.6 9.5-13.5 fL Neutrophils Percent Auto 62.9 43.0-75.0 % Lymphocytes Percent Auto 17.0 20.5-60.0 % Monocytes Percent Auto 12.1 1.7-12.0 % Eosinophils Percent Auto 6.8 0.9-7.0 % Basophils Percent Auto 0.7 0.2-2.0 % Immature Granulocytes Pct Auto 0.5 0.0-0.5 % Neutrophils Absolute Auto 2.6 1.4-6.5 10 3/uL Lymphocytes Absolute Auto 0.7 1.2-3.8 10 3/uL Monocytes Absolute Auto 0.5 0.3-0.8 10 3/uL Eosinophils Absolute Auto 0.3 0.0-0.7 10 3/uL Basophils Absolute Auto 0.0 0.0-0.1 10 3/uL Immature Granulocytes Abs Auto 0.02 0.00-0.03 10 3/uL Performing Lab: see note ML - [facility] LB PROF 14(COMP METB) (Not yet reviewed by provider) Interpretation: Performing Lab: Notes/Report: [facility] , Sodium 145 136-145 mmol/L Potassium 3.4 3.5-5.1 mmol/L Chloride 109 98-107 mmol/L Carbon Dioxide 27.7 21.0-32.0 mmol/L Anion Gap 11.7 Glucose 98 74-106 mg/dL Blood Urea Nitrogen 15.0 7.0-18.0 mg/dL Creatinine 0.79 0.55-1.02 mg/dL Estimated GFR ( Joanna >60 >=60 mL/min/1.73m 2 Estimated GFR (Non- Le >60 >=60 mL/min/1.73m 2 BUN Creatinine Ratio 19.0 Calcium 9.0 8.5-10.1 mg/dL Bilirubin Total 1.0 0.2-1.0 mg/dL Aspartate Amino Transferase 21 15-37 U/L Alanine Aminotransferase 30 14-59 U/L Alkaline Phosphatase 71 46-116 U/L Total Protein 6.0 6.4-8.2 g/dL Albumin Level 3.5 3.4-5.0 g/dL Globulin 2.5 Albumin Globulin Ratio 1.4 Performing Lab: see note ML - [facility] LB Packed Red Blood Cells (Not yet reviewed by provider) Interpretation: Performing Lab: Notes/Report: Packed Red Blood Cells [id number] ON RC TRANSFUSED 04/01/24 1444 Type and Screen (Not yet rev iewed by provider) Interpretation: Performing Lab: Notes/Report: [facility] , Blood Type O Negative Antibody Screen NEGATIVE Blood Culture 1 (Not yet rev iewed by provider) Interpretation: Performing Lab: Notes/Report: [facility] , Blood Culture 1 See Below For Report Blood Culture 1 NG5D NO GROWTH AT 5 DAYS.^NO GROWTH AT 5 DAYS. Performing Lab: see note - [facility] LB Blood Culture 2 (Not yet rev iewed by provider) Interpretation: Performing Lab: Notes/Report: [facility] , Blood Culture 2 See Below For Report Blood Culture 2 NG5D NO GROWTH AT 5 DAYS.^NO GROWTH AT 5 DAYS. Performing Lab: see note ML - [facility] LB CT CHEST W CON (Not yet revi ewed by provider) Interpretation: Performing Lab: Notes/Report: Source Facility: [place] [address] [place] [address] CT Scan Report Signed Patient: YASMIN JONES MR#: [id number] : 1970 Acct:[id number] Age/Sex: 53 / F ADM Date: 04/29/24 Loc: CT Attending Dr: Aarti Hope M.D. Ordering Physician: Aarti Hope M.D. Date of Service: 04/29/24 Procedure(s): CT chest w con Accession Number(s): [id number] cc: Physician,Non-Staff Josselyn [place] [address] Patient Name: YASMIN JONES MRN: [id number] date: 1970 Sex: F Assigned Patient Location: CT Current Patient Location: CARD Accession/Order Number: [id number] Exam Date: 04/29/2024 12:21 Report Date: 04/29/2024 12:54 At the request of: AARTI HOPE MD Procedure: CT chest w con CT CHEST, ABDOMEN AND PELVIS WITH CONTRAST CLINICAL DATA: Follow-up in patient with history of right breast cancer. COMPARISON: PET/CT 10/26/2023 Spiral images were obtained through the chest, abdomen and pelvis following 100 mL Omnipaque 300. Images of the chest were reviewed using both narrow and wide window settings. This CT exam was performed using one or more following dose reduction techniques: Automated exposure control, adjustment of the mA and/or kV according to patient size, or use of iterative reconstruction technique. The heart is within normal limits for size. No pericardial effusion is present. No aortic aneurysm or dissection is seen. There are a few small nonpathologic mediastinal lymph nodes. There is a left-sided Motlmc-z-Qcaj catheter. Patient has had interval bilateral mastectomy. There is a suspected sample examiner on the right. On the left, there is a large skin wound as well as subcutaneous infiltration, air and minimal fluid. Clinical correlation will be needed since there is only limited information regarding surgery. There are multiple hemostasis clips and stranding at the right axilla. No enlarged axillary lymph nodes are seen. Mild patchy parenchymal changes are present within the right upper lobe. Given location, this could be related to prior radiation therapy. There are some tiny scattered nodular densities measuring up to 5 mm in size at the medial superior segment of the right lower lobe. There is a calcified right upper lobe granuloma. No pleural effusion or pneumothorax is seen. S-shaped scoliotic curvature and endplate spurring are seen at the spine. There is a tiny hypodensity within the left hepatic lobe which might be a cyst. There is also a hypodensity within the right hepatic lobe measuring approximately 1.6 cm in size which is indeterminate. The CT images on the comparison PET exam are not diagnostic. The gallbladder is contracted. No obvious gallstones are noted. The spleen and pancreas show no acute findings. There is a tiny 1 cm left adrenal nodule which was suggested on the prior and was not hypermetabolic. It may be an adenoma. The renal nephrograms are symmetric. There are tiny left renal cysts. The abdominal aorta is normal caliber. There are a few small abdominal lymph nodes. No ascites is seen. The small bowel loops are not distended. There is stool within the colon. There is fluid within the stomach. There is thoracolumbar levoscoliotic curvature as well as degenerative changes at the spine. There is bilateral L5 spondylolysis with mild lumbosacral spondylolisthesis. Images through the pelvis show normal caliber small bowel loops. There is mild distal colonic stool. No prominent diverticular disease is seen. There is no appendiceal inflammation. The urinary bladder shows no abnormalities for the degree of distention. There are benign-appearing inguinal lymph nodes with fatty deb. No acute osseous abnormalities are seen. CT/CT chest w con IMPRESSION: POSTOPERATIVE CHANGES INVOLVING BOTH BREASTS, DESCRIBED. CLINICAL CORRELATION WILL BE NEEDED GIVEN THE LIMITED HISTORY. MILD PARENCHYMAL CHANGES INVOLVING THE RIGHT UPPER LOBE THAT MAY RELATE TO PREVIOUS RADIATION THERAPY. TINY PULMONARY NODULES, TOO SMALL TO FURTHER CHARACTERIZE. NO PATHOLOGIC ADENOPATHY. NO BOWEL OR URINARY TRACT OBSTRUCTION. NO OTHER ACUTE FINDINGS. Indeterminant right hepatic lesion. Patient has other abdominal imaging, correlation may be helpful. Impression dictated by: Seema Martin M.D.04/29/2024 12:54 PM Dictation Location: [place] [address] Electronically authenticated by: [id number] Y Date: 04/29/2024 12:54 Dictated By: Seema Martin M.D. Signed By: 04/29/24 1257 DD/ 1254 TD/TT: Pharmacy Account Director: [place] [address] CT Scan Report Signed Patient: YASMIN JONES MR#: [id number] : 1970 Acct:[id number] Age/Sex: 53 / F ADM Date: 04/29/24 Loc: CT Attending Dr: Arturo Hope M.D. Ordering Physician: Aarti Hope M.D. Date of Service: 04/29/24 Procedure(s): CT chest w con Accession Number(s): [id number] cc: Physician,Non-Staff Josselyn [place] [address] Patient Name: YASMIN JONES MRN: [id number] date: 1970 Sex: F Assigned Patient Location: CT Current Patient Location: CARD Accession/Order Number: [id number] Exam Date: 04/29/2024 12:21 Report Date: 04/29/2024 12:54 At the request of: AARTI HOPE MD Procedure: CT chest w con CT CHEST, ABDOMEN AN D PELVIS WITH CONTRAST CLINICAL DATA: Follow-up in patient with history of right breast cancer. COMPARISON: PET/CT 10/26/2023 Spiral images were obtained through the chest, abdomen and pelvis following 100 mL Omnipaque 300 . Images of the chest were reviewed using both narrow and wide window settings . This CT exam was performed using one or more following dose reduction techniques: Automated exposure control, adjustment of the mA and/or kV according to patient size, or use of iterative reconstruction technique. The heart is within normal limits for size. No pericardial effusion is present. No aortic aneurysm or dissection is seen. There are a few small nonpathologic mediastinal lymph nodes. There is a left-sided Mwfctu-i-Xyio catheter. Patient valverde s had interval bilateral mastectomy. There is a suspected sample examiner o n the right. On the left, there is a large skin wound as well as subcutaneous infiltration, air and minimal fluid. Clinical correlation will be needed since there is only limited information regarding surgery. There are multiple hemostasis clips and stranding at the right axilla. No enlarged axillary lymph nodes are seen. Mild patchy parenchymal changes are present within the right upper lobe. Given location, this could be related to prior radiation therapy. There are some tiny scattered nodular densities measuring up to 5 mm in size at the medial superior segment of the right lower lobe. There is a calcified right upper lobe granuloma. No pleural effusion or pneumothorax is seen. S-shaped scoliotic curvature and endplate spurring ar e seen at the spine. There is a tiny hypodensity within the left hepatic lobe which might be a cyst. There is also a hypodensity within the right hepatic lobe measuring approximately 1.6 cm in size which is indeterminate. The CT images on the comparison PET exam are not diagnostic. The gallbladder is contracted. No obvious gallstones are noted. The spleen and pancreas show no acute findings. There is a tiny 1 cm left adrenal nodule which was suggested on the prior and was not hypermetabolic. It may be an adenoma. The renal nephrograms are symmetric. There are tiny left renal cysts. The abdominal aorta is normal caliber. There are a few small abdominal lymph nodes. No ascites is seen. The small bowel loop s are not distended. There is stool within the colon. There is fluid withi n the stomach. There is thoracolumbar levoscoliotic curvature as well as degenerative changes at the spine. There is bilateral L5 spondylolysis with mild lumbosacral spondylolisthesis. Images through the pelvis show normal caliber small bowel loops. There is mild distal colonic stool. No prominent diverticular disease is seen. There is no appendiceal inflammation. The urinary bladder shows no abnormalities for the degree of distention. There are benign-appearing inguinal lymph nodes with fatty deb. No acute osseous abnormalities are seen. CT/CT chest w con IMPRESSION: POSTOPERATIVE CHANGE S INVOLVING BOTH BREASTS, DESCRIBED. CLINICAL CORRELATION WILL BE NEEDED GIVEN THE LIMITED HISTORY. MILD PARENCHYMAL CHANGES INVOLVING THE RIGHT UPPER LOBE THAT MAY RELATE TO PREVIOUS RADIATION THERAPY. TINY PULMONARY NODULES, TOO SMALL TO FURTHER CHARACTERIZE. NO PATHOLOGIC ADENOPATHY. NO BOWEL OR URINARY TRACT OBSTRUCTION. NO OTHER ACUTE FINDINGS. Indeterminant right hepatic lesion. Patient has other abdominal imaging, correlation may be helpful. Impression dictated by: Seema Martin M.D.04/29/2024 12:54 PM Dictation Location: [place] [address] Electronically authenticated by: [id number] Y Date: 04/29/2024 12:54 Dictated By: Seema Martin M.D. Signed By: 04/29/24 1257 DD/ 1254 TD/TT: Pharmacy Account Director: CT abdomen pelvis w con (Not yet reviewed by provider) Interpretation: Performing Lab: Notes/Report: Source Facility: [place] [address] [place] [address] CT Scan Report Signed Patient: YASMIN JONES MR#: [id number] : 1970 Acct:[id number] Age/Sex: 53 / F ADM Date: 04/29/24 Loc: CT Attending Dr: Aarti Hope M.D. Ordering Physician: Aarti Hope M.D. Date of Service: 04/29/24 Procedure(s): CT abdomen pelvis w con Accession Number(s): [id number] cc: Physician,Non-Staff Josselyn [place] [address] Patient Name: YASMIN JNOES MRN: [id number] date: 1970 Sex: F Assigned Patient Location: CT Current Patient Location: CARD Accession/Order Number: [id number] Exam Date: 04/29/2024 12:21 Report Date: 04/29/2024 12:54 At the request of: AARTI HOPE MD Procedure: CT chest w con CT CHEST, ABDOMEN AND PELVIS WITH CONTRAST CLINICAL DATA: Follow-up in patient with history of right breast cancer. COMPARISON: PET/CT 10/26/2023 Spiral images were obtained through the chest, abdomen and pelvis following 100 mL Omnipaque 300. Images of the chest were reviewed using both narrow and wide window settings. This CT exam was performed using one or more following dose reduction techniques: Automated exposure control, adjustment of the mA and/or kV according to patient size, or use of iterative reconstruction technique. The heart is within normal limits for size. No pericardial effusion is present. No aortic aneurysm or dissection is seen. There are a few small nonpathologic mediastinal lymph nodes. There is a left-sided Vnnwfi-l-Mlzg catheter. Patient has had interval bilateral mastectomy. There is a suspected sample examiner on the right. On the left, there is a large skin wound as well as subcutaneous infiltration, air and minimal fluid. Clinical correlation will be needed since there is only limited information regarding surgery. There are multiple hemostasis clips and stranding at the right axilla. No enlarged axillary lymph nodes are seen. Mild patchy parenchymal changes are present within the right upper lobe. Given location, this could be related to prior radiation therapy. There are some tiny scattered nodular densities measuring up to 5 mm in size at the medial superior segment of the right lower lobe. There is a calcified right upper lobe granuloma. No pleural effusion or pneumothorax is seen. S-shaped scoliotic curvature and endplate spurring are seen at the spine. There is a tiny hypodensity within the left hepatic lobe which might be a cyst. There is also a hypodensity within the right hepatic lobe measuring approximately 1.6 cm in size which is indeterminate. The CT images on the comparison PET exam are not diagnostic. The gallbladder is contracted. No obvious gallstones are noted. The spleen and pancreas show no acute findings. There is a tiny 1 cm left adrenal nodule which was suggested on the prior and was not hypermetabolic. It may be an adenoma. The renal nephrograms are symmetric. There are tiny left renal cysts. The abdominal aorta is normal caliber. There are a few small abdominal lymph nodes. No ascites is seen. The small bowel loops are not distended. There is stool within the colon. There is fluid within the stomach. There is thoracolumbar levoscoliotic curvature as well as degenerative changes at the spine. There is bilateral L5 spondylolysis with mild lumbosacral spondylolisthesis. Images through the pelvis show normal caliber small bowel loops. There is mild distal colonic stool. No prominent diverticular disease is seen. There is no appendiceal inflammation. The urinary bladder shows no abnormalities for the degree of distention. There are benign-appearing inguinal lymph nodes with fatty deb. No acute osseous abnormalities are seen. CT/CT abdomen pelvis w con IMPRESSION: POSTOPERATIVE CHANGES INVOLVING BOTH BREASTS, DESCRIBED. CLINICAL CORRELATION WILL BE NEEDED GIVEN THE LIMITED HISTORY. MILD PARENCHYMAL CHANGES INVOLVING THE RIGHT UPPER LOBE THAT MAY RELATE TO PREVIOUS RADIATION THERAPY. TINY PULMONARY NODULES, TOO SMALL TO FURTHER CHARACTERIZE. NO PATHOLOGIC ADENOPATHY. NO BOWEL OR URINARY TRACT OBSTRUCTION. NO OTHER ACUTE FINDINGS. Indeterminant right hepatic lesion. Patient has other abdominal imaging, correlation may be helpful. Impression dictated by: Seema Martin M.D.04/29/2024 12:54 PM Dictation Location: [place] [address] Electronically authenticated by: [id number] Y Date: 04/29/2024 12:54 Dictated By: Seema Martin M.D. Signed By: 04/29/24 1257 DD/ 1254 TD/TT: Pharmacy Account Director: [place] [address] CT Scan Report Signed Patient: YASMIN JONES MR#: [id number] : 1970 Acct:[id number] Age/Sex: 53 / F ADM Date: 04/29/24 Loc: CT Attending Dr: Arturo Hope M.D. Ordering Physician: Aarti Hope M.D. Date of Service: 04/29/24 Procedure(s): CT abdomen pelvis w con Accession Number(s): [id number] cc: Physician,Non-Staff Josselyn [facility] [place] [id number] Patient Name: YASMIN JONES MRN: [id number] date: 1970 Sex: F Assigned Patient Location: CT Current Patient Location: CARD Accession/Order Number: [id number] Exam Date: 04/29/2024 12:21 Report Date: 04/29/2024 12:54 At the request of: AARTI HOPE MD Procedure: CT chest w con CT CHEST, ABDOMEN AN D PELVIS WITH CONTRAST CLINICAL DATA: Follow-up in patient with history of right breast cancer. COMPARISON: PET/CT 10/26/2023 Spiral images were obtained through the chest, abdomen and pelvis following 100 mL Omnipaque 300 . Images of the chest were reviewed using both narrow and wide window settings . This CT exam was performed using one or more following dose reduction techniques: Automated exposure control, adjustment of the mA and/or kV according to patient size, or use of iterative reconstruction technique. The heart is within normal limits for size. No pericardial effusion is present. No aortic aneurysm or dissection is seen. There are a few small nonpathologic mediastinal lymph nodes. There is a left-sided Gpgaph-w-Bziw catheter. Patient valverde s had interval bilateral mastectomy. There is a suspected sample examiner o n the right. On the left, there is a large skin wound as well as subcutaneous infiltration, air and minimal fluid. Clinical correlation will be needed since there is only limited information regarding surgery. There are multiple hemostasis clips and stranding at the right axilla. No enlarged axillary lymph nodes are seen. Mild patchy parenchymal changes are present within the right upper lobe. Given location, this could be related to prior radiation therapy. There are some tiny scattered nodular densities measuring up to 5 mm in size at the medial superior segment of the right lower lobe. There is a calcified right upper lobe granuloma. No pleural effusion or pneumothorax is seen. S-shaped scoliotic curvature and endplate spurring ar e seen at the spine. There is a tiny hypodensity within the left hepatic lobe which might be a cyst. There is also a hypodensity within the right hepatic lobe measuring approximately 1.6 cm in size which is indeterminate. The CT images on the comparison PET exam are not diagnostic. The gallbladder is contracted. No obvious gallstones are noted. The spleen and pancreas show no acute findings. There is a tiny 1 cm left adrenal nodule which was suggested on the prior and was not hypermetabolic. It may be an adenoma. The renal nephrograms are symmetric. There are tiny left renal cysts. The abdominal aorta is normal caliber. There are a few small abdominal lymph nodes. No ascites is seen. The small bowel loop s are not distended. There is stool within the colon. There is fluid withi n the stomach. There is thoracolumbar levoscoliotic curvature as well as degenerative changes at the spine. There is bilateral L5 spondylolysis with mild lumbosacral spondylolisthesis. Images through the pelvis show normal caliber small bowel loops. There is mild distal colonic stool. No prominent diverticular disease is seen. There is no appendiceal inflammation. The urinary bladder shows no abnormalities for the degree of distention. There are benign-appearing inguinal lymph nodes with fatty deb. No acute osseous abnormalities are seen. CT/CT abdomen pelvis w con IMPRESSION: POSTOPERATIVE CHANGE S INVOLVING BOTH BREASTS, DESCRIBED. CLINICAL CORRELATION WILL BE NEEDED GIVEN THE LIMITED HISTORY. MILD PARENCHYMAL CHANGES INVOLVING THE RIGHT UPPER LOBE THAT MAY RELATE TO PREVIOUS RADIATION THERAPY. TINY PULMONARY NODULES, TOO SMALL TO FURTHER CHARACTERIZE. NO PATHOLOGIC ADENOPATHY. NO BOWEL OR URINARY TRACT OBSTRUCTION. NO OTHER ACUTE FINDINGS. Indeterminant right hepatic lesion. Patient has other abdominal imaging, correlation may be helpful. Impression dictated by: Seema Martin M.D.04/29/2024 12:54 PM Dictation Location: [place] [address] Electronically authenticated by: [id number] Y Date: 04/29/2024 12:54 Dictated By: Seema Martin M.D. Signed By: 04/29/24 1257 DD/ 1254 TD/TT: Pharmacy Account Director: TSH (Not yet reviewed by pro vider) Interpretation: Performing Lab: Notes/Report: [facility] , Thyroid Stimulating Hormone 0.288 0.358-3.740 uIU/mL Performing Lab: see note ML - [facility] LB LAB TESTING (Not yet reviewe d by provider) Interpretation: Performing Lab: Notes/Report: [id number] AMIKACIN,PEAK [facility] , Miscellaneous Test COMMENT . Test Ordered: [id number] Amikacin Peak, Serum Amikacin Peak, Serum 19.4 [L ] ug/mL CB Reference Range: 20.0-30.0 Detection Limit = 0.8 <0.8 indicates None Detected Performed at: CB - [facility] [address] [id number] [employer] Inspector: Vik Georges PhD, Phone: [phone] Performing Lab: see note LC - [facility] LB CBC AUTO DIFF (Not yet revie wed by provider) Interpretation: Performing Lab: Notes/Report: [facility] , White Blood Count 6.5 4.0-11.0 10 3/uL Red Blood Count 3.14 4.20-5.40 10 6/uL Hemoglobin 9.7 12.0-16.0 g/dL Hematocrit 29.1 36.0-48.0 % Mean Corpuscular Volume 92.7 81.0-99.0 fL Mean Corpuscular Hemoglobin 30.9 26.7-34.0 pg Mean Corpuscular HGB Conc 33.3 29.9-35.2 g/dL Red Cell Distribution Width 18.2 11.0-15.0 % Platelet Count 306 150-450 10 3/uL Mean Platelet Volume 9.2 9.5-13.5 fL Neutrophils Percent Auto 71.2 43.0-75.0 % Lymphocytes Percent Auto 12.6 20.5-60.0 % Monocytes Percent Auto 9.8 1.7-12.0 % Eosinophils Percent Auto 4.9 0.9-7.0 % Basophils Percent Auto 1.2 0.2-2.0 % Immature Granulocytes Pct Auto 0.3 0.0-0.5 % Neutrophils Absolute Auto 4.6 1.4-6.5 10 3/uL Lymphocytes Absolute Auto 0.8 1.2-3.8 10 3/uL Monocytes Absolute Auto 0.6 0.3-0.8 10 3/uL Eosinophils Absolute Auto 0.3 0.0-0.7 10 3/uL Basophils Absolute Auto 0.1 0.0-0.1 10 3/uL Immature Granulocytes Abs Auto 0.02 0.00-0.03 10 3/uL Performing Lab: see note ML - [facility] LB CREATININE (Not yet reviewed by provider) Interpretation: Performing Lab: Notes/Report: [facility] , Creatinine 0.77 0.55-1.02 mg/dL Estimated GFR ( Joanna >60 >=60 mL/min/1.73m 2 Estimated GFR (Non- Le >60 >=60 mL/min/1.73m 2 Performing Lab: see note ML - [facility] LB LIVER PROFILE (Not yet revie wed by provider) Interpretation: Performing Lab: Notes/Report: [facility] , Bilirubin Total 0.5 0.2-1.0 mg/dL Bilirubin Direct 0.1 0.0-0.2 mg/dL Aspartate Amino Transferase 24 15-37 U/L Alanine Aminotransferase 36 14-59 U/L Alkaline Phosphatase 102 46-116 U/L Total Protein 5.9 6.4-8.2 g/dL Albumin Level 2.9 3.4-5.0 g/dL Globulin 3.0 Albumin Globulin Ratio 1.0 Performing Lab: see note [facility] LB Amikacin Trough, Serum (Not yet reviewed by provider) Interpretation: Performing Lab: Notes/Report: [facility] , Amikacin Trough, Serum <0.8 1.0-8.0 ug/mL Verified by repeat analysis Detection Limit = 0.8 <0.8 indicates None Detected Performed at: [place] [address] [employer] Inspector: Vik Georges PhD, Phone: [phone] Performing Lab: see note [facility] LB Amikacin Peak, Serum (Not ye t reviewed by provider) Interpretation: Performing Lab: Notes/Report: [facility] , Amikacin Peak, Serum 22.1 20.0-30.0 ug/mL Detection Limit = 0.8 <0.8 indicates None Detected Performed at: [place] [address] [employer] Inspector: Vik Georges PhD, Phone: [phone] Performing Lab: see note [facility] LB PROF 14(COMP METB) (Not yet reviewed by provider) Interpretation: Performing Lab: Notes/Report: [facility] , Sodium 141 136-145 mmol/L Potassium 3.4 3.5-5.1 mmol/L Chloride 107 98-107 mmol/L Carbon Dioxide 27.7 21.0-32.0 mmol/L Anion Gap 9.7 Glucose 105 74-106 mg/dL Blood Urea Nitrogen 15.0 7.0-18.0 mg/dL Creatinine 0.79 0.55-1.02 mg/dL Estimated GFR ( Joanna >60 >=60 mL/min/1.73m 2 Estimated GFR (Non- Le >60 >=60 mL/min/1.73m 2 BUN Creatinine Ratio 19.0 Calcium 9.0 8.5-10.1 mg/dL Bilirubin Total 1.2 0.2-1.0 mg/dL Aspartate Amino Transferase 14 15-37 U/L Alanine Aminotransferase 23 14-59 U/L Alkaline Phosphatase 85 46-116 U/L Total Protein 5.9 6.4-8.2 g/dL Albumin Level 3.1 3.4-5.0 g/dL Globulin 2.8 Albumin Globulin Ratio 1.1 Performing Lab: see note ML - [facility] LB CREATININE (Not yet reviewed by provider) Interpretation: Performing Lab: Notes/Report: [facility] , Creatinine 0.82 0.55-1.02 mg/dL Estimated GFR ( Joanna >60 >=60 mL/min/1.73m 2 Estimated GFR (Non- Le >60 >=60 mL/min/1.73m 2 Performing Lab: see note ML - [facility] LB LIVER PROFILE (Not yet revie wed by provider) Interpretation: Performing Lab: Notes/Report: [facility] , Bilirubin Total 0.6 0.2-1.0 mg/dL Bilirubin Direct 0.1 0.0-0.2 mg/dL Aspartate Amino Transferase 18 15-37 U/L Alanine Aminotransferase 21 14-59 U/L Alkaline Phosphatase 81 46-116 U/L Total Protein 6.2 6.4-8.2 g/dL Albumin Level 2.9 3.4-5.0 g/dL Globulin 3.3 Albumin Globulin Ratio 0.9 Performing Lab: see note ML - [facility] LB CBC AUTO DIFF (Not yet revie wed by provider) Interpretation: Performing Lab: Notes/Report: [facility] , White Blood Count 5.3 4.0-11.0 10 3/uL Red Blood Count 2.83 4.20-5.40 10 6/uL Hemoglobin 8.6 12.0-16.0 g/dL Hematocrit 25.8 36.0-48.0 % Mean Corpuscular Volume 91.2 81.0-99.0 fL Mean Corpuscular Hemoglobin 30.4 26.7-34.0 pg Mean Corpuscular HGB Conc 33.3 29.9-35.2 g/dL Red Cell Distribution Width 18.3 11.0-15.0 % Platelet Count 195 150-450 10 3/uL Mean Platelet Volume 8.9 9.5-13.5 fL Neutrophils Percent Auto 72.6 43.0-75.0 % Lymphocytes Percent Auto 12.8 20.5-60.0 % Monocytes Percent Auto 8.5 1.7-12.0 % Eosinophils Percent Auto 5.5 0.9-7.0 % Basophils Percent Auto 0.4 0.2-2.0 % Immature Granulocytes Pct Auto 0.2 0.0-0.5 % Neutrophils Absolute Auto 3.9 1.4-6.5 10 3/uL Lymphocytes Absolute Auto 0.7 1.2-3.8 10 3/uL Monocytes Absolute Auto 0.5 0.3-0.8 10 3/uL Eosinophils Absolute Auto 0.3 0.0-0.7 10 3/uL Basophils Absolute Auto 0.0 0.0-0.1 10 3/uL Immature Granulocytes Abs Auto 0.01 0.00-0.03 10 3/uL Performing Lab: see note ML - [facility] LB PROF 14(COMP METB) (Not yet reviewed by provider) Interpretation: Performing Lab: Notes/Report: [facility] , Sodium 141 136-145 mmol/L Potassium 3.7 3.5-5.1 mmol/L Chloride 104 98-107 mmol/L Carbon Dioxide 26.4 21.0-32.0 mmol/L Anion Gap 14.3 Glucose 84 74-106 mg/dL Blood Urea Nitrogen 12.0 7.0-18.0 mg/dL Creatinine 0.80 0.55-1.02 mg/dL Estimated GFR ( Joanna >60 >=60 mL/min/1.73m 2 Estimated GFR (Non- Le >60 >=60 mL/min/1.73m 2 BUN Creatinine Ratio 15.0 Calcium 9.2 8.5-10.1 mg/dL Bilirubin Total 0.6 0.2-1.0 mg/dL Aspartate Amino Transferase 18 15-37 U/L Alanine Aminotransferase 22 14-59 U/L Alkaline Phosphatase 81 46-116 U/L Total Protein 6.2 6.4-8.2 g/dL Albumin Level 3.2 3.4-5.0 g/dL Globulin 3.0 Albumin Globulin Ratio 1.1 Performing Lab: see note ML - [facility] LB CBC AUTO DIFF (Not yet revie wed by provider) Interpretation: Performing Lab: Notes/Report: [facility] , White Blood Count 5.2 4.0-11.0 10 3/uL Red Blood Count 3.05 4.20-5.40 10 6/uL Hemoglobin 9.2 12.0-16.0 g/dL Hematocrit 27.9 36.0-48.0 % Mean Corpuscular Volume 91.5 81.0-99.0 fL Mean Corpuscular Hemoglobin 30.2 26.7-34.0 pg Mean Corpuscular HGB Conc 33.0 29.9-35.2 g/dL Red Cell Distribution Width 17.1 11.0-15.0 % Platelet Count 297 150-450 10 3/uL Mean Platelet Volume 9.5 9.5-13.5 fL Neutrophils Percent Auto 71.7 43.0-75.0 % Lymphocytes Percent Auto 13.2 20.5-60.0 % Monocytes Percent Auto 9.3 1.7-12.0 % Eosinophils Percent Auto 4.6 0.9-7.0 % Basophils Percent Auto 0.6 0.2-2.0 % Immature Granulocytes Pct Auto 0.6 0.0-0.5 % Neutrophils Absolute Auto 3.7 1.4-6.5 10 3/uL Lymphocytes Absolute Auto 0.7 1.2-3.8 10 3/uL Monocytes Absolute Auto 0.5 0.3-0.8 10 3/uL Eosinophils Absolute Auto 0.2 0.0-0.7 10 3/uL Basophils Absolute Auto 0.0 0.0-0.1 10 3/uL Immature Granulocytes Abs Auto 0.03 0.00-0.03 10 3/uL Performing Lab: see note ML - [facility] Surgical Pathology (Promedic a) (Not yet reviewed by provider) Interpretation: Performing Lab:[facility] ([facility]), [address], [place]. [address] PH:[phone] Notes/Report: The previously reported component Microscopic Description is no longer being reported. SURGICAL PATHOLOGY SEE RESULTS BELOW SPECIMEN SOURCE Tissue Liver LAB AP CASE REPORT: Surgical Pathology Report Case: [id number] Authorizing Provider: Guillaume Curiel MD Collected: 07/11/2024 3267 Ordering Location: [facility] Received: 07/11/20[address] [facility] - Interventional Radiology Pathologist: Bautista Stevens MD Specimen: Liver, right lobe liver lesion LAB AP FINAL DIAGNOSIS: Liver, right lobe, core biopsy: Adenocarcinoma, consistent with known breast primary. This amendment is to delete the microscopic description, which is not relevant to this report. Amendment electronically signed by Bautista Stevens MD on 07/26/2024 at 1205 EDT at 1037 EDT LAB AP DIAGNOSIS COMMENT: In order to determine the primary site, immunohistochemical staining is performed and demonstrates that the tumor cells are diffusely positive for CK7 and GATA3, weakly positive for ER, and negative for CK19, WV and CDX2 with adequate controls, supporting the above diagnosis. LAB AP ADDENDUM 1: ADDENDUM from [facility] (08/08/2024) Breast biomarkers (ER, PgR, and HER2) performed at the outside institution are available for review at the [facility] and demonstrate the tumor cells to be positive for ER (30% nuclear staining of tumor cells with moderate staining intensity), negative for WV (<1% nuclear staining of tumor cells), and negative for HER2 (score of 1+). See complete addended report (scanned on 08/09/2024). Addendum electronically signed by Bautista Stevens MD on 08/09/2024 at 1053 EDT LAB AP GROSS DESCRIPTION: Received in formalin labeled WIDMAN, right lobe liver lesion are four tannish-orange delicate needle core segments of soft tissue, from 1.1-1.6 cm in length. The specimens are submitted entirely in a single cassette. (1, ns, [id number], m2) [facility] LAB AP SYNOPTIC CHECKLIST: Breast Biomarker Reporting Template BREAST BIOMARKER REPORTING TEMPLATE - All Specimens Protocol posted: 02/11/2023 Test(s) Performed: Estrogen Receptor (ER) Status: Positive (greater than 10% of cells demonstrate nuclear positivity) Percentage of Cells with Nuclear Positivity: 41-50% Average Intensity of Staining: Weak Test Type: Food and Drug Administration (FDA) cleared (test / vendor) Primary Antibody: SP1 Scoring System: No separate scoring system used Test(s) Performed: Progesterone Receptor (PgR) Status: Negative (less than 1%) : Internal control cells absent Test Type: Food and Drug Administration (FDA) cleared (test / vendor) Primary Antibody: 1E2 Scoring System: No separate scoring system used Test(s) Performed: HER2 by Immunohistochemistry: Negative (Score 0) Test Type: Food and Drug Administration (FDA) cleared (test / vendor) Primary Antibody: 4B5 Cold Ischemia and Fixation Times: Meet requirements specified in latest version of the ASCO / CAP Guidelines METHODS Fixative: Formalin Image Analysis: Not performed Addendum to CC Consult, [facility] PERFORMED AT [facility] [address],[place] [address] BILIRUBIN CONJUGATED (DIRECT ) (Not yet reviewed by provider) Interpretation: Performing Lab: Notes/Report: [facility] , Bilirubin Direct 0.1 0.0-0.2 mg/dL Performing Lab: see note ML - [facility] LB Manual Differential (Not yet reviewed by provider) Interpretation: Performing Lab: Notes/Report: [facility] , Segmented Neutrophils % Manual 76.0 43.0-75.0 Lymphocytes Percent Manual 7.0 20.5-60.0 % Monocytes Percent Manual 13.0 1.7-12.0 % Eosinophils Percent Manual 3.0 0.9-7.0 % Basophils Percent Manual 1.0 0.2-2.0 % Segmented Neut Absolute Manual 4.18 1.4-6.5 10 3/uL Lymphocytes Absolute Manual 0.38 1.20-3.80 10 3/uL Monocytes Absolute Manual 0.71 0.30-0.80 10 3/uL Eosinophils Absolute Manual 0.16 0.00-0.70 10 3/uL Basophils Abs Manual 0.05 0.00-0.10 1 0 3/uL Hypochromasia 2+ Anisocytosis 2+ Target Cells 1+ Ovalocytes 1+ Performing Lab: see note ML - [facility] LB PROF 14(COMP METB) (Not yet reviewed by provider) Interpretation: Performing Lab: Notes/Report: [facility] , Sodium 140 136-145 mmol/L Potassium 3.8 3.5-5.1 mmol/L Chloride 105 98-107 mmol/L Carbon Dioxide 26.2 21.0-32.0 mmol/L Anion Gap 12.6 Glucose 94 74-106 mg/dL Blood Urea Nitrogen 14.0 7.0-18.0 mg/dL Creatinine 0.95 0.55-1.02 mg/dL Estimated GFR ( Joanna >60 >=60 mL/min/1.73m 2 Estimated GFR (Non- Le >60 >=60 mL/min/1.73m 2 BUN Creatinine Ratio 14.7 Calcium 9.4 8.5-10.1 mg/dL Bilirubin Total 0.8 0.2-1.0 mg/dL Aspartate Amino Transferase 47 15-37 U/L Alanine Aminotransferase 70 14-59 U/L Alkaline Phosphatase 98 46-116 U/L Total Protein 6.7 6.4-8.2 g/dL Albumin Level 3.6 3.4-5.0 g/dL Globulin 3.1 Albumin Globulin Ratio 1.2 Performing Lab: see note ML - [facility] LB TSH (Not yet reviewed by pro vider) Interpretation: Performing Lab: Notes/Report: [facility] , Thyroid Stimulating Hormone 1.427 0.358-3.740 uIU/mL Performing Lab: see note ML - [facility] LB PROF 14(COMP METB) (Not yet reviewed by provider) Interpretation: Performing Lab: Notes/Report: [facility] , Sodium 143 136-145 mmol/L Potassium 3.3 3.5-5.1 mmol/L Chloride 107 98-107 mmol/L Carbon Dioxide 27.4 21.0-32.0 mmol/L Anion Gap 11.9 Glucose 94 74-106 mg/dL Blood Urea Nitrogen 9.0 7.0-18.0 mg/dL Creatinine 0.69 0.55-1.02 mg/dL Estimated GFR ( Joanna >60 >=60 mL/min/1.73m 2 Estimated GFR (Non- Le >60 >=60 mL/min/1.73m 2 BUN Creatinine Ratio 13.0 Calcium 8.7 8.5-10.1 mg/dL Bilirubin Total 0.8 0.2-1.0 mg/dL Aspartate Amino Transferase 16 15-37 U/L Alanine Aminotransferase 18 14-59 U/L Alkaline Phosphatase 71 46-116 U/L Total Protein 5.8 6.4-8.2 g/dL Albumin Level 2.9 3.4-5.0 g/dL Globulin 2.9 Albumin Globulin Ratio 1.0 Performing Lab: see note ML - [facility] LB CBC AUTO DIFF (Not yet revie wed by provider) Interpretation: Performing Lab: Notes/Report: [facility] , White Blood Count 5.5 4.0-11.0 10 3/uL Red Blood Count 2.60 4.20-5.40 10 6/uL Hemoglobin 7.8 12.0-16.0 g/dL Hematocrit 23.7 36.0-48.0 % RESULTS CALLED TO ZENOBIA METCALF RN AT 1024 Mean Corpuscular Volume 91.2 81.0-99.0 fL Mean Corpuscular Hemoglobin 30.0 26.7-34.0 pg Mean Corpuscular HGB Conc 32.9 29.9-35.2 g/dL Red Cell Distribution Width 17.8 11.0-15.0 % Platelet Count 248 150-450 10 3/uL Mean Platelet Volume 9.6 9.5-13.5 fL Performing Lab: see note ML - [facility] LB BILIRUBIN CONJUGATED (DIRECT ) (Not yet reviewed by provider) Interpretation: Performing Lab: Notes/Report: [facility] , Bilirubin Direct 0.2 0.0-0.2 mg/dL Performing Lab: see note - [facility] LB PROF 14(COMP METB) (Not yet reviewed by provider) Interpretation: Performing Lab: Notes/Report: [facility] , Sodium 143 136-145 mmol/L Potassium 3.3 3.5-5.1 mmol/L Chloride 105 98-107 mmol/L Carbon Dioxide 26.0 21.0-32.0 mmol/L Anion Gap 15.3 Glucose 87 74-106 mg/dL Blood Urea Nitrogen 15.0 7.0-18.0 mg/dL Creatinine 0.93 0.55-1.02 mg/dL Estimated GFR ( Joanna >60 >=60 mL/min/1.73m 2 Estimated GFR (Non- Le >60 >=60 mL/min/1.73m 2 BUN Creatinine Ratio 16.1 Calcium 9.1 8.5-10.1 mg/dL Bilirubin Total 1.1 0.2-1.0 mg/dL Aspartate Amino Transferase 13 15-37 U/L Alanine Aminotransferase 25 14-59 U/L Alkaline Phosphatase 65 46-116 U/L Total Protein 6.2 6.4-8.2 g/dL Albumin Level 3.6 3.4-5.0 g/dL Globulin 2.6 Albumin Globulin Ratio 1.4 Performing Lab: see note ML - [facility] LB CT head/brain wo/w con (Not yet reviewed by provider) Interpretation: Performing Lab: Notes/Report: Source Facility: [place] [address] CT Scan Report Signed Patient: YASMIN JONES MR#: [id number] : 1970 Acct:[id number] Age/Sex: 53 / F ADM Date: 08/25/24 Loc: CT Attending Dr: Aarti Hope M.D. Ordering Physician: Aarti Hope M.D. Date of Service: 08/25/24 Procedure(s): CT head/brain wo/w con Accession Number(s): [id number] cc: LYNDA JARQUIN [place] [address] Patient Name: YASMIN JONES MRN: [id number] date: 1970 Sex: F Assigned Patient Location: CT Current Patient Location: INF Accession/Order Number: [id number] Exam Date: 08/25/2024 09:31 Report Date: 08/25/2024 09:46 At the request of: AARTI HOPE MD Procedure: CT head/brain wo/w con CT BRAIN WITHOUT AND WITH INTRAVENOUS CONTRAST: CLINICAL HISTORY: Slurred speech for the past 1 to 2 weeks. Metastatic breast cancer COMPARISON: None TECHNIQUE: Contiguous axial images were obtained through the brain both before and after intravenous administration of 100 mL of Omnipaque 300. This CT exam was performed using one or more following dose reduction techniques: Automated exposure control, adjustment of the mA and/or kV according to patient size, or use of iterative reconstruction technique. FINDINGS: The ventricles are within normal limits for size and position. There are suspected prominent perivascular spaces in the basal ganglia region on both sides. An enhancing mass is visualized at the posterior, slightly inferior cerebellum in the midline. It measures 1.5 x 1.3 x 2.0 cm in size. No other definite enhancing masses are identified. There is no hemorrhage, mass effect or extra-axial collections. There is opacification the left frontal sinus and some of the left ethmoid air cells. The remaining paranasal sinuses and mastoid air cells are clear. CT/CT head/brain wo/w con IMPRESSION: LEFT-SIDED SINUS DISEASE. ENHANCING POSTERIOR FOSSA MASS. GIVEN THE HISTORY, THIS MIGHT BE METASTATIC DISEASE. IF POSSIBLE, MRI FOLLOW-UP IS SUGGESTED FOR FURTHER CHARACTERIZATION AND TO ASSESS FOR ANY ADDITIONAL OCCULT LESIONS. Impression dictated by: Seema Martin M.D. 08/25/2024 9:46 AM Dictation Location: [place] [address] Electronically authenticated by: [id number] Y Date: 08/25/2024 09:46 Dictated By: Seema Martin M.D. Signed By: 08/25/2449 DD/ 5 TD/TT: Pharmacy Account Director: [place] [address] CT Scan Report Signed Patient: YASMIN JONES MR#: [id number] : 1970 Acct:[id number] Age/Sex: 53 / F ADM Date: 08/25/24 Loc: CT Attending Dr: Arturo Hope M.D. Ordering Physician: Aarti Hope M.D. Date of Service: 08/25/24 Procedure(s): CT head/brain wo/w con Accession Number(s): [id number] cc: LYNDA JARQUIN [place] [address] Patient Name: YASMIN JONES MRN: [id number] date: 1970 Sex: F Assigned Patient Location: CT Current Patient Location: [facility] Accession/Order Number: [id number] Exam Date: 08/25/2024 09:31 Report Date: 08/25/2024 09:46 At the request of: AARTI HOPE MD Procedure: CT head/brain wo/w con CT BRAIN WITHOUT AND WITH INTRAVENOUS CONTRAST: CLINICAL HISTORY: Slurred speech for the past 1 to 2 weeks. Metastatic breast cancer COMPARISON: None TECHNIQUE: Contiguou s axial images were obtained through the brain both before and after intravenou s administration of 100 mL of Omnipaque 300. This CT exam was performed using one or more following dose reduction techniques: Automated exposure control, adjustment of the mA and/or kV according to patient size, or use of iterative reconstruction technique. FINDINGS: The ventricles are within normal limits for size and position. There are suspected prominent perivascular spaces in the basal ganglia region on both sides. An enhancing mass is visualized at the posterior, slightly inferior cerebellum in the midline. It measures 1.5 x 1.3 x 2.0 cm in size. No other definite enhancing masses are identified. There is no hemorrhage, mass effect or extra-axial collections. There is opacification the left frontal sinus and some of the left ethmoid air cells. The remaining paranasal sinuses and mastoid air cells are clear. CT/CT head/brain wo/w con IMPRESSION: LEFT-SIDED SINUS DISEASE. ENHANCING POSTERIOR FOSSA MASS. GIVEN THE HISTORY, THIS MIGHT BE METASTATIC DISEASE. IF POSSIBLE , MRI FOLLOW-UP IS SUGGESTED FOR FURTHER CHARACTERIZATION AND TO ASSESS FOR AN Y ADDITIONAL OCCULT LESIONS. Impression dictated by: Seema Martin M.D. 08/25/2024 9:46 AM Dictation Location: [place] [address] Electronically authenticated by: [id number] Y Date: 08/25/2024 09:46 Dictated By: Seema Martin M.D. Signed By: 08/25/2449 DD/ 5 TD/TT: Pharmacy Account Director: CBC AUTO DIFF (Not yet revie wed by provider) Interpretation: Performing Lab: Notes/Report: [facility] , White Blood Count 6.0 4.0-11.0 10 3/uL Red Blood Count 2.91 4.20-5.40 10 6/uL Hemoglobin 8.9 12.0-16.0 g/dL Hematocrit 26.7 36.0-48.0 % Mean Corpuscular Volume 91.8 81.0-99.0 fL Mean Corpuscular Hemoglobin 30.6 26.7-34.0 pg Mean Corpuscular HGB Conc 33.3 29.9-35.2 g/dL Red Cell Distribution Width 17.0 11.0-15.0 % Platelet Count 191 150-450 10 3/uL Mean Platelet Volume 9.0 9.5-13.5 fL Neutrophils Percent Auto 75.9 43.0-75.0 % Lymphocytes Percent Auto 12.6 20.5-60.0 % Monocytes Percent Auto 9.4 1.7-12.0 % Eosinophils Percent Auto 1.5 0.9-7.0 % Basophils Percent Auto 0.3 0.2-2.0 % Immature Granulocytes Pct Auto 0.3 0.0-0.5 % Neutrophils Absolute Auto 4.5 1.4-6.5 10 3/uL Lymphocytes Absolute Auto 0.8 1.2-3.8 10 3/uL Monocytes Absolute Auto 0.6 0.3-0.8 10 3/uL Eosinophils Absolute Auto 0.1 0.0-0.7 10 3/uL Basophils Absolute Auto 0.0 0.0-0.1 10 3/uL Immature Granulocytes Abs Auto 0.02 0.00-0.03 10 3/uL Performing Lab: see note ML - [facility] LB BILIRUBIN CONJUGATED (DIRECT ) (Not yet reviewed by provider) Interpretation: Performing Lab: Notes/Report: [facility] , Bilirubin Direct 0.2 0.0-0.2 mg/dL Performing Lab: see note ML - [facility] LB BILIRUBIN CONJUGATED (DIRECT ) (Not yet reviewed by provider) Interpretation: Performing Lab: Notes/Report: [facility] , Bilirubin Direct 0.2 0.0-0.2 mg/dL Performing Lab: see note ML - [facility] LB TSH (Not yet reviewed by pro vider) Interpretation: Performing Lab: Notes/Report: [facility] , Thyroid Stimulating Hormone 3.729 0.358-3.740 uIU/mL Performing Lab: see note - [facility] LB PROF 14(COMP METB) (Not yet reviewed by provider) Interpretation: Performing Lab: Notes/Report: [facility] , Sodium 146 136-145 mmol/L Potassium 3.5 3.5-5.1 mmol/L Chloride 106 98-107 mmol/L Carbon Dioxide 27.1 21.0-32.0 mmol/L Anion Gap 16.4 Glucose 95 74-106 mg/dL Blood Urea Nitrogen 10.0 7.0-18.0 mg/dL Creatinine 0.82 0.55-1.02 mg/dL Estimated GFR ( Joanna >60 >=60 mL/min/1.73m 2 Estimated GFR (Non- Le >60 >=60 mL/min/1.73m 2 BUN Creatinine Ratio 12.2 Calcium 8.8 8.5-10.1 mg/dL Bilirubin Total 0.9 0.2-1.0 mg/dL Aspartate Amino Transferase 16 15-37 U/L Alanine Aminotransferase 27 14-59 U/L Alkaline Phosphatase 73 46-116 U/L Total Protein 6.0 6.4-8.2 g/dL Albumin Level 3.5 3.4-5.0 g/dL Globulin 2.5 Albumin Globulin Ratio 1.4 Performing Lab: see note ML - [facility] LB CBC AUTO DIFF (Not yet revie wed by provider) Interpretation: Performing Lab: Notes/Report: [facility] , White Blood Count 4.1 4.0-11.0 10 3/uL Red Blood Count 2.91 4.20-5.40 10 6/uL Hemoglobin 9.1 12.0-16.0 g/dL Hematocrit 26.8 36.0-48.0 % Mean Corpuscular Volume 92.1 81.0-99.0 fL Mean Corpuscular Hemoglobin 31.3 26.7-34.0 pg Mean Corpuscular HGB Conc 34.0 29.9-35.2 g/dL Red Cell Distribution Width 17.2 11.0-15.0 % Platelet Count 181 150-450 10 3/uL Mean Platelet Volume 9.7 9.5-13.5 fL Performing Lab: see note ML - [facility] LB BILIRUBIN CONJUGATED (DIRECT ) (Not yet reviewed by provider) Interpretation: Performing Lab: Notes/Report: [facility] , Bilirubin Direct 0.2 0.0-0.2 mg/dL Performing Lab: see note ML - [facility] LB CBC AUTO DIFF (Not yet revie wed by provider) Interpretation: Performing Lab: Notes/Report: [facility] , White Blood Count 4.7 4.0-11.0 10 3/uL Red Blood Count 3.07 4.20-5.40 10 6/uL Hemoglobin 9.5 12.0-16.0 g/dL Hematocrit 28.3 36.0-48.0 % Mean Corpuscular Volume 92.2 81.0-99.0 fL Mean Corpuscular Hemoglobin 30.9 26.7-34.0 pg Mean Corpuscular HGB Conc 33.6 29.9-35.2 g/dL Red Cell Distribution Width 17.9 11.0-15.0 % Platelet Count 193 150-450 10 3/uL Mean Platelet Volume 9.3 9.5-13.5 fL Neutrophils Percent Auto 68.9 43.0-75.0 % Lymphocytes Percent Auto 14.3 20.5-60.0 % Monocytes Percent Auto 10.9 1.7-12.0 % Eosinophils Percent Auto 5.1 0.9-7.0 % Basophils Percent Auto 0.6 0.2-2.0 % Immature Granulocytes Pct Auto 0.2 0.0-0.5 % Neutrophils Absolute Auto 3.2 1.4-6.5 10 3/uL Lymphocytes Absolute Auto 0.7 1.2-3.8 10 3/uL Monocytes Absolute Auto 0.5 0.3-0.8 10 3/uL Eosinophils Absolute Auto 0.2 0.0-0.7 10 3/uL Basophils Absolute Auto 0.0 0.0-0.1 10 3/uL Immature Granulocytes Abs Auto 0.01 0.00-0.03 10 3/uL Performing Lab: see note ML - [facility] LB PROF 14(COMP METB) (Not yet reviewed by provider) Interpretation: Performing Lab: Notes/Report: [facility] , Sodium 142 136-145 mmol/L Potassium 3.3 3.5-5.1 mmol/L Chloride 104 98-107 mmol/L Carbon Dioxide 28.6 21.0-32.0 mmol/L Anion Gap 12.7 Glucose 87 74-106 mg/dL Blood Urea Nitrogen 17.0 7.0-18.0 mg/dL Creatinine 0.88 0.55-1.02 mg/dL Estimated GFR ( Joanna >60 >=60 mL/min/1.73m 2 Estimated GFR (Non- Le >60 >=60 mL/min/1.73m 2 BUN Creatinine Ratio 19.3 Calcium 9.4 8.5-10.1 mg/dL Bilirubin Total 0.8 0.2-1.0 mg/dL Aspartate Amino Transferase 20 15-37 U/L Alanine Aminotransferase 33 14-59 U/L Alkaline Phosphatase 72 46-116 U/L Total Protein 6.2 6.4-8.2 g/dL Albumin Level 3.6 3.4-5.0 g/dL Globulin 2.6 Albumin Globulin Ratio 1.4 Performing Lab: see note ML - [facility] LB BILIRUBIN CONJUGATED (DIRECT ) (Not yet reviewed by provider) Interpretation: Performing Lab: Notes/Report: [facility] , Bilirubin Direct 0.2 0.0-0.2 mg/dL Performing Lab: see note ML - [facility] LB Type and Screen (Not yet rev iewed by provider) Interpretation: Performing Lab: Notes/Report: [facility] , Blood Type O Negative Antibody Screen NEGATIVE Packed Red Blood Cells (Not yet reviewed by provider) Interpretation: Performing Lab: Notes/Report: Packed Red Blood Cells [id number] ON RC TRANSFUSED 02/09/24 1619 TSH W/ REFLEX FT4 (Not yet r eviewed by provider) Interpretation: Performing Lab: Notes/Report: [facility] , TSH W/ REFLEX FT4 2.328 0.358-3.740 uIU/mL Performing Lab: see note ML - [facility] LB Erythrocyte Sedimentation Ra te (Not yet reviewed by provider) Interpretation: Performing Lab: Notes/Report: [facility] , Erythrocyte Sedimentation Rate <1 <=30 mm/hr Performing Lab: see note ML - [facility] LB PROF 14(COMP METB) (Not yet reviewed by provider) Interpretation: Performing Lab: Notes/Report: [facility] , Sodium 146 136-145 mmol/L Potassium 2.8 3.5-5.1 mmol/L RESULTS SERRA D TO MALLIKA BAKERRN at 1015 Chloride 107 98-107 mmol/L Carbon Dioxide 30.5 21.0-32.0 mmol/L Anion Gap 11.3 Glucose 99 74-106 mg/dL Blood Urea Nitrogen 12.0 7.0-18.0 mg/dL Creatinine 0.77 0.55-1.02 mg/dL Estimated GFR ( Joanna >60 >=60 mL/min/1.73m 2 Estimated GFR (Non- Le >60 >=60 mL/min/1.73m 2 BUN Creatinine Ratio 15.6 Calcium 9.1 8.5-10.1 mg/dL Bilirubin Total 1.6 0.2-1.0 mg/dL Aspartate Amino Transferase 42 15-37 U/L Alanine Aminotransferase 78 14-59 U/L Alkaline Phosphatase 74 46-116 U/L Total Protein 6.1 6.4-8.2 g/dL Albumin Level 3.4 3.4-5.0 g/dL Globulin 2.7 Albumin Globulin Ratio 1.3 Performing Lab: see note - [facility] LB CRP (Not yet reviewed by pro vider) Interpretation: Performing Lab: Notes/Report: [facility] , C Reactive Protein <0.50 <=0.50 mg/dL Performing Lab: see note - [facility] LB CBC AUTO DIFF (Not yet revie wed by provider) Interpretation: Performing Lab: Notes/Report: [facility] , White Blood Count 2.5 4.0-11.0 10 3/uL Red Blood Count 2.84 4.20-5.40 10 6/uL Hemoglobin 8.5 12.0-16.0 g/dL Hematocrit 24.6 36.0-48.0 % Mean Corpuscular Volume 86.6 81.0-99.0 fL Mean Corpuscular Hemoglobin 29.9 26.7-34.0 pg Mean Corpuscular HGB Conc 34.6 29.9-35.2 g/dL Red Cell Distribution Width 16.6 11.0-15.0 % Platelet Count 125 150-450 10 3/uL Mean Platelet Volume 9.5 9.5-13.5 fL Neutrophils Percent Auto 57.0 43.0-75.0 % Lymphocytes Percent Auto 21.3 20.5-60.0 % Monocytes Percent Auto 13.0 1.7-12.0 % Eosinophils Percent Auto 7.1 0.9-7.0 % Basophils Percent Auto 1.2 0.2-2.0 % Immature Granulocytes Pct Auto 0.4 0.0-0.5 % Neutrophils Absolute Auto 1.5 1.4-6.5 10 3/uL Lymphocytes Absolute Auto 0.5 1.2-3.8 10 3/uL Monocytes Absolute Auto 0.3 0.3-0.8 10 3/uL Eosinophils Absolute Auto 0.2 0.0-0.7 10 3/uL Basophils Absolute Auto 0.0 0.0-0.1 10 3/uL Immature Granulocytes Abs Auto 0.01 0.00-0.03 10 3/uL Performing Lab: see note ML - [facility] LB BILIRUBIN CONJUGATED (DIRECT ) (Not yet reviewed by provider) Interpretation: Performing Lab: Notes/Report: [facility] , Bilirubin Direct 0.3 0.0-0.2 mg/dL Performing Lab: see note ML - [facility] LB White Blood Count (Not yet r eviewed by provider) Interpretation: Performing Lab: Notes/Report: [facility] , White Blood Count 3.8 4.0-11.0 10 3/uL Performing Lab: see note ML - [facility] LB Platelet Count (Not yet revi ewed by provider) Interpretation: Performing Lab: Notes/Report: [facility] , Platelet Count 181 150-450 10 3/uL Performing Lab: see note ML - [facility] LB LIVER PROFILE (Not yet revie wed by provider) Interpretation: Performing Lab: Notes/Report: [facility] , Bilirubin Total 1.0 0.2-1.0 mg/dL Bilirubin Direct 0.2 0.0-0.2 mg/dL Aspartate Amino Transferase 36 15-37 U/L Alanine Aminotransferase 50 14-59 U/L Alkaline Phosphatase 83 46-116 U/L Total Protein 6.6 6.4-8.2 g/dL Albumin Level 3.4 3.4-5.0 g/dL Globulin 3.2 Albumin Globulin Ratio 1.1 Performing Lab: see note ML - [facility] LB CREATININE (Not yet reviewed by provider) Interpretation: Performing Lab: Notes/Report: [facility] , Creatinine 1.09 0.55-1.02 mg/dL Estimated GFR ( Joanna >60 >=60 mL/min/1.73m 2 Estimated GFR (Non- Le 53 >=60 mL/min/1.73m 2 Performing Lab: see note ML - [facility] LB LAB TESTING (Not yet reviewe d by provider) Interpretation: Performing Lab: Notes/Report: [id number] Cancer Antigen (CA) 27.29 [facility] , Miscellaneous Test COMMENT . Test Ordered: [id number] CA 27.29 CA 27.29 23.5 U/mL Reference Range: 0.0-38.6 [employer] Immunochemiluminometric Methodology (ICMA) Values obtained with different assay methods or kits cannot be used interchangeably. Results cannot be interpreted as absolute evidence of the presence or absence of malignant disease. Performed at: [address], [place], [place] [id number] [employer] Inspector: Vik Georges PhD, Phone: [phone] Performing Lab: see note - [facility] LB PROF 14(COMP METB) (Not yet reviewed by provider) Interpretation: Performing Lab: Notes/Report: [facility] , Sodium 139 136-145 mmol/L Potassium 3.1 3.5-5.1 mmol/L Chloride 103 98-107 mmol/L Carbon Dioxide 32.9 21.0-32.0 mmol/L Anion Gap 6.2 Glucose 112 74-106 mg/dL Blood Urea Nitrogen 16.0 7.0-18.0 mg/dL Creatinine 0.95 0.55-1.02 mg/dL Estimated GFR ( Joanna >60 >=60 Estimated GFR (Non- Le >60 >=60 BUN Creatinine Ratio 16.8 Calcium 9.2 8.5-10.1 mg/dL Bilirubin Total 0.6 0.2-1.0 mg/dL Aspartate Amino Transferase 22 15-37 U/L Alanine Aminotransferase 25 14-59 U/L Alkaline Phosphatase 78 46-116 U/L Total Protein 6.4 6.4-8.2 g/dL Albumin Level 3.2 3.4-5.0 g/dL Globulin 3.2 Albumin Globulin Ratio 1.0 Performing Lab: see note - [facility] LB MAGNESIUM (Not yet reviewed by provider) Interpretation: Performing Lab: Notes/Report: [facility] , Magnesium 1.5 1.8-2.4 mg/dL Performing Lab: see note - [facility] LB CBC AUTO DIFF (Not yet revie wed by provider) Interpretation: Performing Lab: Notes/Report: [facility] , White Blood Count 7.3 4.0-11.0 10 3/uL Red Blood Count 2.82 4.20-5.40 10 6/uL Hemoglobin 9.2 12.0-16.0 g/dL Hematocrit 27.0 36.0-48.0 % Mean Corpuscular Volume 95.7 81.0-99.0 fL Mean Corpuscular Hemoglobin 32.6 26.7-34.0 pg Mean Corpuscular HGB Conc 34.1 29.9-35.2 g/dL Red Cell Distribution Width 12.5 11.0-15.0 % Platelet Count 301 150-450 10 3/uL Mean Platelet Volume 9.0 9.5-13.5 fL Neutrophils Percent Auto 61.9 43.0-75.0 % Lymphocytes Percent Auto 14.9 20.5-60.0 % Monocytes Percent Auto 5.3 1.7-12.0 % Eosinophils Percent Auto 16.8 0.9-7.0 % Basophils Percent Auto 0.7 0.2-2.0 % Immature Granulocytes Pct Auto 0.4 0.0-0.5 % Neutrophils Absolute Auto 4.6 1.4-6.5 10 3/uL Lymphocytes Absolute Auto 1.1 1.2-3.8 10 3/uL Monocytes Absolute Auto 0.4 0.3-0.8 10 3/uL Eosinophils Absolute Auto 1.2 0.0-0.7 10 3/uL Basophils Absolute Auto 0.1 0.0-0.1 10 3/uL Immature Granulocytes Abs Auto 0.03 0.00-0.03 10 3/uL Performing Lab: see note - [facility] LB PET skull to mid thigh (Not yet reviewed by provider) Interpretation: Performing Lab: Notes/Report: Source Facility: [facility]-[address] [place] [address] PET Report Signed Patient: YASMIN JONES MR#: [id number] : 1970 Acct:[id number] Age/Sex: 53 / F ADM Date: 10/26/23 Loc: PETCT Attending Dr: Aarti Hope M.D. Ordering Physician: Aarti Hope M.D. Date of Service: 10/26/23 Procedure(s): PET skull to mid thigh Accession Number(s): [id number] cc: Aarti Hope M.D.; LYNDA JARQUIN [place] [id number] Patient Name: YASMIN JONES MRN: [id number] date: 1970 Sex: F Assigned Patient Location: PETCT Current Patient Location: [facility] Accession/Order Number: [id number] Exam Date: 10/26/2023 16:24 Report Date: 11/01/2023 11:18 At the request of: AARTI HOPE Procedure: PET skull to mid thigh NUCLEAR MEDICINE PET/CT HISTORY: Right breast carcinoma. COMPARISON: None. METHOD: 13.38 mCi of F-18 FDG was administered intravenously. Blood sugar level at the time of the injection: 95. At 50 minutes from injection, PET images were obtained from the skull base through the midthigh levels in the axial plane. Reformatted images were performed in the sagittal and coronal planes. A low-dose, noncontrast CT scan was performed for attenuation correction and anatomical localization. A low dose, noncontrast and nondiagnostic CT scan was performed for attenuation correction and anatomic localization. Mediastinal blood pool SUV max 2.9 using the patient's body weight as the normalization method. FINDINGS: HEAD AND NECK: There are no metabolically active lymph nodes in the neck. CHEST: There are no metabolically active mediastinal, hilar, or axillary lymph nodes. The major airways are patent. There is no pericardial effusion. There is no evidence of abnormal metabolic uptake in the esophagus. There is a focus of increased embolic uptake in the right breast measuring 1.1 x 0.6 and with a maximum SUV of 8.4. There is a second separate nonspecific focus of minimal metabolic uptake measuring A 6 mm with a maximum SUV of 4.9. There is a metabolically active right axillary lymph node measuring 1.4 x 0.7 cm a maximum SUV of 12.0. There is no evidence of abnormal metabolic uptake in the lung parenchyma. There are no pleural effusions. There is no pneumothorax. ABDOMEN AND PELVIS: There is no evidence of abnormal metabolic activity in the liver or adrenal glands. There is no evidence of abnormal metabolic active lymph nodes in the abdomen or pelvis. There is no free fluid. There is physiologic uptake in the urinary system and bowel. MUSCULOSKELETAL: There is no evidence of abnormal metabolically active bony lesions. There is a bilateral L5 pars defect. PET/PET skull to mid thigh IMPRESSION: Primary right breast carcinoma with a metastatic right axillary lymph node. Non-specific second minimal focal metabolic uptake in the right breast which may be related to inflammatory process, an underlying lesion can't be entirely excluded. Recommend MRI breast if not previously performed. Bilateral L5 pars defect. Electronically authenticated by: SHILOH PONCE Date: 11/01/2023 11:18 Dictated By: Shiloh Ponce M.D. Signed By: 11/01/23 1121 DD/ 1118 TD/TT: Pharmacy Account Director: [place] [address] PET Report Signed Patient: YASMIN JONES MR#: [id number] : 1970 Acct:[id number] Age/Sex: 53 / F ADM Date: 10/26/23 Loc: PETCT Attending Dr: Arturo Hope M.D. Ordering Physician: Aarti Hope M.D. Date of Service: 10/26/23 Procedure(s): PET skull to mid thigh Accession Number(s): [id number] cc: Aarti Hope M.D.; LYNDA JARQUIN [place] [id number] Patient Name: YASMIN JONES MRN: [id number] date: 1970 Sex: F Assigned Patient Location: PETCT Current Patient Location: [facility] Accession/Order Number: [id number] Exam Date: 10/26/2023 16:24 Report Date: 11/01/2023 11:18 At the request of: AARTI HOPE Procedure: PET skull to mid thigh NUCLEAR MEDICINE PET/CT HISTORY: Right breas t carcinoma. COMPARISON: None. METHOD: 13.38 mCi of F-18 FD G was administered intravenously. Blood sugar level at the time of the injection: 95. At 50 minutes from injection, PET images were obtained from the skull base through the midthigh levels in the axial plane. Reformatted images were performed in the sagittal and coronal planes. A low-dose, noncontras t CT scan was performed for attenuation correction and anatomical localization. A low dose, noncontrast and nondiagnostic CT scan was performed for attenuation correction and anatomic localization. Mediastinal blood pool SUV max 2.9 using the patient's body weight as the normalization method. FINDINGS: HEAD AND NECK: There are no metabolically active lymph nodes in the neck. CHEST: There are no metabolically active mediastinal, hilar, or axillary lymph nodes. The major airways are patent. There is no pericardial effusion. There is no evidence of abnormal metabolic uptake in the esophagus. There is a focus of increased embolic uptake in the right breast measuring 1.1 x 0.6 and with a maximum SUV of 8.4. There is a second separate nonspecific focus of minimal metabolic uptake measuring A 6 mm with a maximu m SUV of 4.9. There is a metabolically active right axillary lymph node measuring 1.4 x 0.7 cm a maximum SUV of 12.0. There is no evidence of abnormal metabolic uptake in the lung parenchyma. There are no pleural effusions. There is no pneumothorax. ABDOMEN AND PELVIS: There is no evidence of abnormal metabolic activity in the liver or adrenal glands. There is no evidence of abnormal metabolic active lymph nodes in the abdomen or pelvis. There is no free fluid. There is physiologic uptake i n the urinary system and bowel. MUSCULOSKELETAL: There is no evidence of abnormal metabolically active bony lesions. There is a bilateral L5 pars defect. PET/PET skull to mid thigh IMPRESSION: Primary right breast carcinoma with a metastatic right axillary lymph node. Non-specific second minimal focal metabolic uptake in the right breast which may be related to inflammatory process, an underlying lesion can't be entirely excluded. Recommend MRI breast if not previously performed. Bilateral L5 pars defect. Electronically authenticated by: SHILOH PONCE Date: 11/01/2023 11:18 Dictated By: Shiloh Ponce M.D. Signed By: 11/01/23 1121 DD/ 1118 TD/TT: Pharmacy Account Director: PROF 14(COMP METB) (Not yet reviewed by provider) Interpretation: Performing Lab: Notes/Report: [facility] , Sodium 138 136-145 mmol/L Potassium 3.0 3.5-5.1 mmol/L Chloride 99 98-107 mmol/L Carbon Dioxide 29.1 21.0-32.0 mmol/L Anion Gap 12.9 Glucose 85 74-106 mg/dL Blood Urea Nitrogen 16.0 7.0-18.0 mg/dL Creatinine 1.04 0.55-1.02 mg/dL Estimated GFR ( Joanna >60 >=60 Estimated GFR (Non- Le 55 >=60 BUN Creatinine Ratio 15.4 Calcium 9.0 8.5-10.1 mg/dL Bilirubin Total 1.0 0.2-1.0 mg/dL Aspartate Amino Transferase 34 15-37 U/L Alanine Aminotransferase 45 14-59 U/L Alkaline Phosphatase 75 46-116 U/L Total Protein 6.8 6.4-8.2 g/dL Albumin Level 3.8 3.4-5.0 g/dL Globulin 3.0 Albumin Globulin Ratio 1.3 Performing Lab: see note ML - [facility] LB MAGNESIUM (Not yet reviewed by provider) Interpretation: Performing Lab: Notes/Report: [facility] , Magnesium 1.5 1.8-2.4 mg/dL Performing Lab: see note ML - [facility] LB CBC AUTO DIFF (Not yet revie wed by provider) Interpretation: Performing Lab: Notes/Report: [facility] , White Blood Count 5.6 4.0-11.0 10 3/uL Red Blood Count 2.65 4.20-5.40 10 6/uL Hemoglobin 9.0 12.0-16.0 g/dL Hematocrit 25.9 36.0-48.0 % Mean Corpuscular Volume 97.7 81.0-99.0 fL Mean Corpuscular Hemoglobin 34.0 26.7-34.0 pg Mean Corpuscular HGB Conc 34.7 29.9-35.2 g/dL Red Cell Distribution Width 14.4 11.0-15.0 % Platelet Count 310 150-450 10 3/uL Mean Platelet Volume 9.1 9.5-13.5 fL Neutrophils Percent Auto 59.8 43.0-75.0 % Lymphocytes Percent Auto 19.6 20.5-60.0 % Monocytes Percent Auto 14.7 1.7-12.0 % Eosinophils Percent Auto 4.1 0.9-7.0 % Basophils Percent Auto 1.4 0.2-2.0 % Immature Granulocytes Pct Auto 0.4 0.0-0.5 % Neutrophils Absolute Auto 3.3 1.4-6.5 10 3/uL Lymphocytes Absolute Auto 1.1 1.2-3.8 10 3/uL Monocytes Absolute Auto 0.8 0.3-0.8 10 3/uL Eosinophils Absolute Auto 0.2 0.0-0.7 10 3/uL Basophils Absolute Auto 0.1 0.0-0.1 10 3/uL Immature Granulocytes Abs Auto 0.02 0.00-0.03 10 3/uL Performing Lab: see note ML - [facility] Manual Differential (Not yet reviewed by provider) Interpretation: Performing Lab: Notes/Report: [facility] , Segmented Neutrophils % Manual 69.0 43.0-75.0 Lymphocytes Percent Manual 21.0 20.5-60.0 % Monocytes Percent Manual 10.0 1.7-12.0 % Eosinophils Percent Manual 0.0 0.9-7.0 % Basophils Percent Manual 0.0 0.2-2.0 % Segmented Neut Absolute Manual 3.03 1.4-6.5 10 3/uL Lymphocytes Absolute Manual 0.92 1.20-3.80 10 3/uL Monocytes Absolute Manual 0.44 0.30-0.80 10 3/uL Eosinophils Absolute Manual 0.00 0.00-0.70 10 3/uL Basophils Abs Manual 0.00 0.00-0.10 1 0 3/uL Polychromasia 1+ Anisocytosis 2+ Performing Lab: see note ML - [facility] PROF 14(COMP METB) (Not yet reviewed by provider) Interpretation: Performing Lab: Notes/Report: [facility] , Sodium 141 136-145 mmol/L Potassium 2.8 3.5-5.1 mmol/L RESULTS SERRA D TO ZENOBIA METCALF/OC IN INFUSION Chloride 103 98-107 mmol/L Carbon Dioxide 31.2 21.0-32.0 mmol/L Anion Gap 9.6 Glucose 129 74-106 mg/dL Blood Urea Nitrogen 11.0 7.0-18.0 mg/dL Creatinine 0.93 0.55-1.02 mg/dL Estimated GFR ( Joanna >60 >=60 Estimated GFR (Non- Le >60 >=60 BUN Creatinine Ratio 11.8 Calcium 9.1 8.5-10.1 mg/dL Bilirubin Total 0.5 0.2-1.0 mg/dL Aspartate Amino Transferase 14 15-37 U/L Alanine Aminotransferase 24 14-59 U/L Alkaline Phosphatase 74 46-116 U/L Total Protein 6.0 6.4-8.2 g/dL Albumin Level 3.4 3.4-5.0 g/dL Globulin 2.6 Albumin Globulin Ratio 1.3 Performing Lab: see note ML - [facility] LB LAB TESTING (Not yet reviewe d by provider) Interpretation: Performing Lab: Notes/Report: [id number] Cancer Antigen (CA) 15-3 [facility] , Miscellaneous Test COMMENT . Test Ordered: [id number] Cancer Antigen (CA) 15-3 Cancer Antigen 15-3 45.1 [H ] U/mL Reference Range: 0.0-25.0 [facility] Electrochemiluminescence Immunoassay (ECLIA) Values obtained with different assay methods or kits cannot be used interchangeably. Results cannot be interpreted as absolute evidence of the presence or absence of malignant disease. Performed at: [facility] [id number] [employer] Inspector: Vik Georges PhD, Phone: [phone] Performing Lab: see note - [facility] LB CBC AUTO DIFF (Not yet revie wed by provider) Interpretation: Performing Lab: Notes/Report: [facility] , White Blood Count 3.9 4.0-11.0 10 3/uL Red Blood Count 2.86 4.20-5.40 10 6/uL Hemoglobin 9.7 12.0-16.0 g/dL Hematocrit 28.7 36.0-48.0 % Mean Corpuscular Volume 100.3 81.0-99.0 fL Mean Corpuscular Hemoglobin 33.9 26.7-34.0 pg Mean Corpuscular HGB Conc 33.8 29.9-35.2 g/dL Red Cell Distribution Width 14.9 11.0-15.0 % Platelet Count 251 150-450 10 3/uL Mean Platelet Volume 9.5 9.5-13.5 fL Neutrophils Percent Auto 59.1 43.0-75.0 % Lymphocytes Percent Auto 18.9 20.5-60.0 % Monocytes Percent Auto 18.1 1.7-12.0 % Eosinophils Percent Auto 2.1 0.9-7.0 % Basophils Percent Auto 1.3 0.2-2.0 % Immature Granulocytes Pct Auto 0.5 0.0-0.5 % Neutrophils Absolute Auto 2.3 1.4-6.5 10 3/uL Lymphocytes Absolute Auto 0.7 1.2-3.8 10 3/uL Monocytes Absolute Auto 0.7 0.3-0.8 10 3/uL Eosinophils Absolute Auto 0.1 0.0-0.7 10 3/uL Basophils Absolute Auto 0.1 0.0-0.1 10 3/uL Immature Granulocytes Abs Auto 0.02 0.00-0.03 10 3/uL Performing Lab: see note - [facility] LB Manual Differential (Not yet reviewed by provider) Interpretation: Performing Lab: Notes/Report: [facility] , Segmented Neutrophils % Manual 56.0 Lymphocytes Percent Manual 36.0 20.5-60.0 % Monocytes Percent Manual 3.0 1.7-12.0 % Eosinophils Percent Manual 2.0 0.9-7.0 % Basophils Percent Manual 3.0 0.2-2.0 % Segmented Neut Absolute Manual 1.23 1.4-6.5 10 3/uL Lymphocytes Absolute Manual 0.79 1.20-3.80 10 3/uL Monocytes Absolute Manual 0.06 0.30-0.80 10 3/uL Eosinophils Absolute Manual 0.04 0.00-0.70 10 3/uL Basophils Abs Manual 0.06 0.00-0.10 1 0 3/uL Anisocytosis 1+ Macrocytosis 1+ Performing Lab: see note - [facility] PROF CHEM 8 (BAS METB) (Not yet reviewed by provider) Interpretation: Performing Lab: Notes/Report: [facility] , Sodium 140 136-145 mmol/L Potassium 3.1 3.5-5.1 mmol/L Chloride 102 98-107 mmol/L Carbon Dioxide 29.7 21.0-32.0 mmol/L Anion Gap 11.4 Glucose 97 74-106 mg/dL Blood Urea Nitrogen 16.0 7.0-18.0 mg/dL Creatinine 0.78 0.55-1.02 mg/dL Estimated GFR ( Joanna >60 >=60 Estimated GFR (Non- Le >60 >=60 BUN Creatinine Ratio 20.5 Calcium 9.0 8.5-10.1 mg/dL Performing Lab: see note - [facility] CBC AUTO DIFF (Not yet revie wed by provider) Interpretation: Performing Lab: Notes/Report: [facility] , White Blood Count 2.2 4.0-11.0 10 3/uL Red Blood Count 2.74 4.20-5.40 10 6/uL Hemoglobin 9.3 12.0-16.0 g/dL Hematocrit 27.6 36.0-48.0 % Mean Corpuscular Volume 100.7 81.0-99.0 fL Mean Corpuscular Hemoglobin 33.9 26.7-34.0 pg Mean Corpuscular HGB Conc 33.7 29.9-35.2 g/dL Red Cell Distribution Width 15.1 11.0-15.0 % Platelet Count 124 150-450 10 3/uL Mean Platelet Volume 9.8 9.5-13.5 fL Performing Lab: see note ML - [facility] LB CBC AUTO DIFF (Not yet revie wed by provider) Interpretation: Performing Lab: Notes/Report: [facility] , White Blood Count 5.2 4.0-11.0 10 3/uL Red Blood Count 2.79 4.20-5.40 10 6/uL Hemoglobin 9.7 12.0-16.0 g/dL Hematocrit 28.5 36.0-48.0 % Mean Corpuscular Volume 102.2 81.0-99.0 fL Mean Corpuscular Hemoglobin 34.8 26.7-34.0 pg Mean Corpuscular HGB Conc 34.0 29.9-35.2 g/dL Red Cell Distribution Width 15.8 11.0-15.0 % Platelet Count 246 150-450 10 3/uL Mean Platelet Volume 9.5 9.5-13.5 fL Neutrophils Percent Auto 65.2 43.0-75.0 % Lymphocytes Percent Auto 18.5 20.5-60.0 % Monocytes Percent Auto 12.5 1.7-12.0 % Eosinophils Percent Auto 1.0 0.9-7.0 % Basophils Percent Auto 1.4 0.2-2.0 % Immature Granulocytes Pct Auto 1.4 0.0-0.5 % Neutrophils Absolute Auto 3.4 1.4-6.5 10 3/uL Lymphocytes Absolute Auto 1.0 1.2-3.8 10 3/uL Monocytes Absolute Auto 0.7 0.3-0.8 10 3/uL Eosinophils Absolute Auto 0.1 0.0-0.7 10 3/uL Basophils Absolute Auto 0.1 0.0-0.1 10 3/uL Immature Granulocytes Abs Auto 0.07 0.00-0.03 10 3/uL Performing Lab: see note ML - [facility] CBC AUTO DIFF (Not yet revie wed by provider) Interpretation: Performing Lab: Notes/Report: [facility] , White Blood Count 13.0 4.0-11.0 10 3/uL Red Blood Count 2.59 4.20-5.40 10 6/uL Hemoglobin 9.1 12.0-16.0 g/dL Hematocrit 26.6 36.0-48.0 % Mean Corpuscular Volume 102.7 81.0-99.0 fL Mean Corpuscular Hemoglobin 35.1 26.7-34.0 pg Mean Corpuscular HGB Conc 34.2 29.9-35.2 g/dL Red Cell Distribution Width 16.7 11.0-15.0 % Platelet Count 108 150-450 10 3/uL Mean Platelet Volume 10.7 9.5-13.5 fL Performing Lab: see note - [facility] Immunoglobulins A/E/G/M, Ser um (Not yet reviewed by provider) Interpretation: Performing Lab: Notes/Report: [facility] , Immunoglobulin G, Qn, Serum 600 755-3573 mg/dL Immunoglobulin A, Qn, Serum 87 87-352 mg/dL Immunoglobulin M, Qn, Serum 51 26-217 mg/dL Immunoglobulin E, Total <2 6-495 IU/mL Performed at: - [facility] [address] [id number] [employer] Inspector: Vik Georges PhD, Phone: [phone] Performed at: - [facility] [address] [id number] [employer] Inspector: Perla Henderson MD, Phone: [phone] Performing Lab: see note - [facility] CBC AUTO DIFF (Not yet revie wed by provider) Interpretation: Performing Lab: Notes/Report: [facility] , White Blood Count 5.6 4.0-11.0 10 3/uL Red Blood Count 3.30 4.20-5.40 10 6/uL Hemoglobin 10.2 12.0-16.0 g/dL Hematocrit 30.3 36.0-48.0 % Mean Corpuscular Volume 91.8 81.0-99.0 fL Mean Corpuscular Hemoglobin 30.9 26.7-34.0 pg Mean Corpuscular HGB Conc 33.7 29.9-35.2 g/dL Red Cell Distribution Width 16.3 11.0-15.0 % Platelet Count 312 150-450 10 3/uL Mean Platelet Volume 9.1 9.5-13.5 fL Neutrophils Percent Auto 65.4 43.0-75.0 % Lymphocytes Percent Auto 11.7 20.5-60.0 % Monocytes Percent Auto 9.9 1.7-12.0 % Eosinophils Percent Auto 11.7 0.9-7.0 % Basophils Percent Auto 0.9 0.2-2.0 % Immature Granulocytes Pct Auto 0.4 0.0-0.5 % Neutrophils Absolute Auto 3.6 1.4-6.5 10 3/uL Lymphocytes Absolute Auto 0.7 1.2-3.8 10 3/uL Monocytes Absolute Auto 0.6 0.3-0.8 10 3/uL Eosinophils Absolute Auto 0.7 0.0-0.7 10 3/uL Basophils Absolute Auto 0.1 0.0-0.1 10 3/uL Immature Granulocytes Abs Auto 0.02 0.00-0.03 10 3/uL Performing Lab: see note - [facility] LB Amikacin Trough, Serum (Not yet reviewed by provider) Interpretation: Performing Lab: Notes/Report: [facility] , Amikacin Trough, Serum <0.8 1.0-8.0 ug/mL Verified by repeat analysis Detection Limit = 0.8 <0.8 indicates None Detected Performed at: - [facility] [address] [id number] [employer] Inspector: Vik Georges PhD, Phone: [phone] Performing Lab: see note - [facility] LB APTT (Not yet reviewed by jelena roberson) Interpretation: Performing Lab: Notes/Report: APTT 32 26-37 sec The copy-to physician of this order is GUILLAUME Lion The ordering physician of this order is STEPHEN Garcias PLATELET COUNT AND MPV (Not yet reviewed by provider) Interpretation: Performing Lab: Notes/Report: PLATELET COUNT 258 150-450 X10E9/L MPV 7.1 7-12 fL The copy-to physician of this order is GUILLAUME Lion The ordering physician of this order is STEPHEN Garcias PROTIME (Not yet reviewed by provider) Interpretation: Performing Lab: Notes/Report: PROTIME 10.9 9.8-13.2 sec INR 1.0 0.9-1.2 NA The copy-to physician of this order is GUILLAUME Lion The ordering physician of this order is STEPHEN Garcias CBC AUTO DIFF (Not yet revie wed by provider) Interpretation: Performing Lab: Notes/Report: [facility] , White Blood Count 5.6 4.0-11.0 10 3/uL Red Blood Count 3.54 4.20-5.40 10 6/uL Hemoglobin 11.5 12.0-16.0 g/dL Hematocrit 37.8 36.0-48.0 % Mean Corpuscular Volume 106.8 81.0-99.0 fL MACROCYTOSIS 2+ Mean Corpuscular Hemoglobin 32.5 26.7-34.0 pg Mean Corpuscular HGB Conc 30.4 29.9-35.2 g/dL Red Cell Distribution Width 17.2 11.0-15.0 % Platelet Count 224 150-450 10 3/uL Mean Platelet Volume 9.5 9.5-13.5 fL Neutrophils Percent Auto 67.2 43.0-75.0 % Lymphocytes Percent Auto 16.5 20.5-60.0 % Monocytes Percent Auto 7.6 1.7-12.0 % Eosinophils Percent Auto 7.4 0.9-7.0 % Basophils Percent Auto 0.9 0.2-2.0 % Immature Granulocytes Pct Auto 0.4 0.0-0.5 % Neutrophils Absolute Auto 3.8 1.4-6.5 10 3/uL Lymphocytes Absolute Auto 0.9 1.2-3.8 10 3/uL Monocytes Absolute Auto 0.4 0.3-0.8 10 3/uL Eosinophils Absolute Auto 0.4 0.0-0.7 10 3/uL Basophils Absolute Auto 0.1 0.0-0.1 10 3/uL Immature Granulocytes Abs Auto 0.02 0.00-0.03 10 3/uL Performing Lab: see note ML - [facility] LB PROF 14(COMP METB) (Not yet reviewed by provider) Interpretation: Performing Lab: Notes/Report: [facility] , Sodium 142 136-145 mmol/L Potassium 4.0 3.5-5.1 mmol/L Chloride 105 98-107 mmol/L Carbon Dioxide 26.6 21.0-32.0 mmol/L Anion Gap 14.4 Glucose 102 74-106 mg/dL Blood Urea Nitrogen 13.0 7.0-18.0 mg/dL Creatinine 0.95 0.55-1.02 mg/dL Estimated GFR ( Joanna >60 >=60 mL/min/1.73m 2 Estimated GFR (Non- Le >60 >=60 mL/min/1.73m 2 BUN Creatinine Ratio 13.7 Calcium 9.1 8.5-10.1 mg/dL Bilirubin Total 0.6 0.2-1.0 mg/dL Aspartate Amino Transferase 61 15-37 U/L Alanine Aminotransferase 79 14-59 U/L Alkaline Phosphatase 124 46-116 U/L Total Protein 6.8 6.4-8.2 g/dL Albumin Level 3.4 3.4-5.0 g/dL Globulin 3.4 Albumin Globulin Ratio 1.0 Performing Lab: see note ML - [facility] LB FERRITIN (Not yet reviewed b y provider) Interpretation: Performing Lab: Notes/Report: [facility] , Ferritin 669.0 8.0-252.0 ng/mL Performing Lab: see note ML - [facility] LB FOLATE (Not yet reviewed by provider) Interpretation: Performing Lab: Notes/Report: [facility] , Folate 7.70 8.60-58.90 ng/mL Performing Lab: see note - [facility] LB IRON AND TIBC (Not yet revie wed by provider) Interpretation: Performing Lab: Notes/Report: [facility] , Iron 71.0 50.0-170.0 ug/dL Total Iron Binding Capacity 306.0 250.0-450.0 ug/dL Percent Iron Saturation 23.2 Performing Lab: see note ML - [facility] LB Vitamin B12 (Not yet reviewe d by provider) Interpretation: Performing Lab: Notes/Report: [facility] , Vitamin B12 >1999 232-1245 pg/mL Performed at: - [facility] [address] [id number] [employer] Inspector: Vik Georges PhD, Phone: [phone] Performing Lab: see note LC - [facility] LB Reason For Referral No Information Encounters Encounter Location Date Provider Diagnosis [facility] Oncology [address] [place] [place] [address] 06/07/2024 Aarti Hope [facility] Oncology [address] [place] [address] 02/09/2024 Aartiaazlia Hope [facility] Oncology [address] [place] [address] 03/15/2024 Aartiazalia Hope [facility] Oncology [address] [place] [address] 04/12/2024 Aartiazalia Hope [facility] Oncology [address] [place] [address] 05/17/2024 Aartiazalia Hope [facility] Oncology [address] [place] [address] 01/05/2024 Aartiazalia Hope [facility] Oncology [address] [place] [address] 07/05/2024 Aartiazalia Hope [facility] Oncology [address] [place] [address] 07/26/2024 Aartiazalia Hope [facility] Oncology [address] [place] [address] 08/16/2024 Aartiazalia Hope [facility] Oncology [address] [place] [address] 09/29/2023 Aartiazalia Hope [facility] Oncology [address] [place] [address] 12/10/2023 Aartiazalia Hope [facility] Oncology [address] [place] [address] 02/19/2024 Aarti Jayy [facility] Oncology [address] [place] [address] 09/01/2023 Aartiazalia Hope [facility] Oncology [address] [place] [address] 09/08/2023 Aarti Jayy [facility] Oncology [address] [place] [address] 03/11/2024 Aartiazalia Hope [facility] Oncology [address] [place] [address] 04/01/[facility] [address] [place] [address] 04/22[facility] [address] [place] [address] 09/15/2023 Aarti Jayy [facility] Oncology [address] [place] [address] 09/22/2023 [facility] [address] [place] [address] 09/29/2023 [facility] [address] [place] [address] 10/13/2023 [facility] [address] [place] [address] 09/08/2023 [facility] [address] [place] [address] 11/12/2023 Aartiazalia Hope Plan Of Treatment Pending Test Test Name Order Date APTT 07/11/2024 PLATELET COUNT AND MPV 07/11/2024 Surgical Pathology ([facility]) Surgical Pathology ([facility]) PROTIME 07/11/2024 BILIRUBIN CONJUGATED (DIRECT) 03/23/2024 BILIRUBIN CONJUGATED (DIRECT) 04/05/2024 BILIRUBIN CONJUGATED (DIRECT) 07/13/2023 BILIRUBIN CONJUGATED (DIRECT) 07/14/2023 BILIRUBIN CONJUGATED (DIRECT) 02/05/2024 BILIRUBIN CONJUGATED (DIRECT) 02/19/2024 BILIRUBIN CONJUGATED (DIRECT) 02/29/2024 BILIRUBIN CONJUGATED (DIRECT) 03/11/2024 BILIRUBIN CONJUGATED (DIRECT) 03/15/2024 BILIRUBIN CONJUGATED (DIRECT) 03/18/2024 BILIRUBIN CONJUGATED (DIRECT) 04/01/2024 BNP 08/18/2023 CBC AUTO DIFF 08/18/2023 CBC AUTO DIFF 08/25/2023 CBC AUTO DIFF 08/04/2023 CBC AUTO DIFF 08/11/2023 CBC AUTO DIFF 07/21/2023 CBC AUTO DIFF 07/28/2023 CBC AUTO DIFF 07/14/2023 CBC AUTO DIFF 07/09/2023 CBC AUTO DIFF 07/13/2023 CBC AUTO DIFF 06/09/2023 CBC AUTO DIFF 06/16/2023 CBC AUTO DIFF 06/23/2023 CBC AUTO DIFF 06/30/2023 CBC AUTO DIFF 07/07/2023 CBC AUTO DIFF 07/08/2023 CBC AUTO DIFF 07/10/2023 CBC AUTO DIFF 03/23/2024 CBC AUTO DIFF 03/18/2024 CBC AUTO DIFF 03/15/2024 CBC AUTO DIFF 03/04/2024 CBC AUTO DIFF 03/11/2024 CBC AUTO DIFF 02/19/2024 CBC AUTO DIFF 02/05/2024 CBC AUTO DIFF 01/21/2024 CBC AUTO DIFF 02/09/2024 CBC AUTO DIFF 09/01/2023 CBC AUTO DIFF 09/08/2023 CBC AUTO DIFF 09/15/2023 CBC AUTO DIFF 09/22/2023 CBC AUTO DIFF 09/29/2023 CBC AUTO DIFF 10/13/2023 CBC AUTO DIFF 10/26/2023 CBC AUTO DIFF 11/12/2023 CBC AUTO DIFF 04/22/2024 CBC AUTO DIFF 04/01/2024 CBC AUTO DIFF 04/05/2024 CBC AUTO DIFF 06/06/2024 CBC AUTO DIFF 06/20/2024 CBC AUTO DIFF 07/26/2024 CREATININE 06/20/2024 CREATININE 06/06/2024 CREATININE 01/05/2024 CREATININE 01/14/2024 CRP 02/05/2024 CULTURE URINE 06/30/2023 FERRITIN 06/16/2023 FERRITIN 08/18/2023 FERRITIN 08/16/2024 FOLATE 08/16/2024 FREE T4 08/11/2023 IRON AND TIBC 08/18/2023 IRON AND TIBC 06/16/2023 IRON AND TIBC 08/16/2024 LAB TESTING 06/01/2024 LAB TESTING 09/29/2023 LAB TESTING 11/12/2023 LAB TESTING 11/12/2023 LIVER PROFILE 01/14/2024 LIVER PROFILE 01/05/2024 LIVER PROFILE 06/06/2024 LIVER PROFILE 06/20/2024 MAGNESIUM 11/12/2023 MAGNESIUM 10/26/2023 MAGNESIUM 09/08/2023 MAGNESIUM 06/16/2023 MAGNESIUM 06/23/2023 MAGNESIUM 06/09/2023 MAGNESIUM 06/30/2023 MAGNESIUM 07/07/2023 MAGNESIUM 08/18/2023 MAGNESIUM 07/28/2023 PROF 14(COMP METB) 07/13/2023 PROF 14(COMP METB) 08/04/2023 PROF 14(COMP METB) 08/11/2023 PROF 14(COMP METB) 08/18/2023 PROF 14(COMP METB) 07/14/2023 PROF 14(COMP METB) 07/28/2023 PROF 14(COMP METB) 07/21/2023 PROF 14(COMP METB) 07/10/2023 PROF 14(COMP METB) 06/30/2023 PROF 14(COMP METB) 07/07/2023 PROF 14(COMP METB) 06/16/2023 PROF 14(COMP METB) 06/09/2023 PROF 14(COMP METB) 06/23/2023 PROF 14(COMP METB) 09/08/2023 PROF 14(COMP METB) 10/13/2023 PROF 14(COMP METB) 09/29/2023 PROF 14(COMP METB) 09/22/2023 PROF 14(COMP METB) 10/26/2023 PROF 14(COMP METB) 11/12/2023 PROF 14(COMP METB) 02/09/2024 PROF 14(COMP METB) 01/21/2024 PROF 14(COMP METB) 02/19/2024 PROF 14(COMP METB) 02/05/2024 PROF 14(COMP METB) 02/29/2024 PROF 14(COMP METB) 03/11/2024 PROF 14(COMP METB) 03/15/2024 PROF 14(COMP METB) 03/18/2024 PROF 14(COMP METB) 03/23/2024 PROF 14(COMP METB) 07/26/2024 PROF 14(COMP METB) 08/02/2024 PROF 14(COMP METB) 04/01/2024 PROF 14(COMP METB) 04/05/2024 PROF 14(COMP METB) 04/22/2024 PROF CHEM 8 (BAS METB) 09/15/2023 TSH 09/08/2023 TSH 04/01/2024 TSH 03/11/2024 TSH 06/16/2023 TSH 06/09/2023 TSH 06/30/2023 TSH 07/28/2023 TSH 08/18/2023 TSH 08/11/2023 TSH 04/22/2024 UA RANDOM 06/30/2023 UA RANDOM 07/08/2023 CT CHEST W CON 04/29/2024 Blood Culture 1 04/27/2024 Blood Culture 2 04/27/2024 CA echo doppler complete 09/11/2023 Erythrocyte Sedimentation Rate Manual Differential 03/11/2024 Manual Differential 09/15/2023 Manual Differential 09/01/2023 Manual Differential 09/22/2023 Manual Differential 10/13/2023 Manual Differential 07/10/2023 Manual Differential 06/23/2023 Manual Differential 06/16/2023 Manual Differential 08/11/2023 Manual Differential 08/04/2023 Manual Differential 08/25/2023 Manual Differential 07/28/2023 Manual Differential 07/14/2023 Manual Differential 07/13/2023 Manual Differential 07/09/2023 Manual Differential 04/01/2024 Second ABO/RH Type 06/09/2023 Packed Red Blood Cells 06/09/2023 Packed Red Blood Cells 07/13/2023 Packed Red Blood Cells 04/01/2024 Packed Red Blood Cells 02/09/2024 Type and Screen 02/09/2024 Type and Screen 04/01/2024 Type and Screen 07/13/2023 Type and Screen 08/04/2023 Type and Screen 06/09/2023 PET skull to mid thigh 11/01/2023 CT abdomen pelvis w con 04/29/2024 TSH W/ REFLEX FT4 02/19/2024 TSH W/ REFLEX FT4 02/09/2024 TSH W/ REFLEX FT4 02/05/2024 TSH W/ REFLEX FT4 06/23/2023 TSH W/ REFLEX FT4 07/07/2023 Immunoglobulins A/E/G/M, Serum CT head/brain wo/w con 08/25/2024 US breast RT complete 07/13/2023 Vitamin B12 08/16/2024 Platelet Count 01/05/2024 Platelet Count 01/14/2024 White Blood Count 01/14/2024 White Blood Count 01/05/2024 Amikacin Trough, Serum 06/20/2024 Amikacin Trough, Serum 06/06/2024 Amikacin Peak, Serum 06/09/2024 Next Appt Details Provider Name:Aarti Hope , 09/06/2024 10:15:00 AM, [address] [place], [address], Insurance Providers Payer Name Payer Address Payer Phone Subscriber Number Group Number Insured Name Patient Relationship to Insured Coverage Start Date Coverage End Date [employer] [place] MEDICA[place] [address] [place] [address] [id number] OHPHCP Yasmin Jones Self - patient is the insured
--- OUTSIDE RECORDS SUMMARY | 2024-08-25 14:04 | XMS_ITS | Encounter Summary ---
Author Organization [employer] Address [facility] [id number] [address] [place] [address] Care Team Providers Care Starbucks Barista Name Role Phone Amy Collier ASSISTANT ATTORNEY GENERAL-ANTI TANK MISSILEMAN Primary Care Provider + Encounter Details Date Type Department Care Team (Late Contact Info) Description 11/27/2021 Orders Only [facility] Internal Medicine - Family Medicine [address] [place] [address] Nat Javed CMA Social History [...] Reconstructive Surgery [address] [place] [address] Shereen Smallwood, PANicolasC [address] [place] [address] 10/26/2024 8:30 AM EDT Telephone Visit [facility] Oncology, A Department of [address] [place] [address] Raymond Sepulveda MD [address] [place] [address], [address] [place] [address] documented as of this encounter Visit Diagnoses Not on filedocumented in this encounter Additional Health Concerns Infection Onset Date Last Indicated Resolved Time Influenza 03/07/2022 03/07/2022 03/14/2022 11:1 2 PM EST documented as of this encounter Care Teams Starbucks Barista Relationship Specialty Start Date End Date Amy Collier, ASSISTANT ATTORNEY GENERAL-ANTI TANK MISSILEMAN [address] [place] [address] PCP - General 11/28/16 documented as of this encounter
--- OUTSIDE RECORDS SUMMARY | 2024-08-25 14:04 | XMS_ITS | Encounter Summary ---
Author Organization [facility] Address [address] [place] [address] Care Team Providers Care Personal Care Attendant Name Role Phone Nilda Carolina RICHTER Unavailable [phone] Jessica Hope MD Unavailable [phone] Lynda Manuel CNP Primary Care Provider [phone] Shereen Smallwood PA-C Unavailable [phone] Radha Martinez RN Unavailable Source Comments In the event this information is protected by the Federal Confidentiality of Alcohol and Drug AbusePatient Records regulations: The Federal rules restrict any use of the information to criminally investigate or prosecute any alcohol or drug abuse patient.[facility] Encounter Details Date Type Department Care Team (Late st Contact Info) Description 08/10/2024 Results Follow-Up Hematology/Oncology [address] [place] [address] [place] [address] [place] [address] Social History Tobacco Use Types [...] is lower risk 7 07/21/2024 Data from: https://www.neighborhoodatlas.medicine.[facility].edu/. Last address used for calculation [address] [...] on filedocumented in this encounter Care Teams Personal Care Attendant Relationship Specialty Start Date End Date Lynda Manuel CNP [address] [place] [address] PCP - General Family Medicine 06/14/24 Carolina Munguia APRN [address] [facility] [address] [facility] [place] [address] 12/04/23 Jessica Hope MD [address] [place] [address] Referring Hematology/Oncology 06/14/24 Shereen Smallwood PA-C [address] [facility] [address] [facility] [place] [address] [facility] Referring Orthopedics 06/15/24 [place] [address] [place] [address] Specialty Chief Controller Hematology/Oncology 07/31/24 documented as of this encounter
--- OUTSIDE RECORDS SUMMARY | 2024-08-25 14:04 | XMS_ITS | Encounter Summary ---
Author Organization [facility] [employer] [facility] Address [id number] [address] [place] [address] Care Team Providers Care Multifocal Button Generator Name Role Phone Amy Collier BELLOWS ASSEMBLER-VIDEO GAME REPAIR TECHNICIAN Primary Care Provider + Encounter Details Date Type Department Care Team (Late st Contact Info) Description 11/03/2023 Orders Only [facility] Internal Medicine - Family Medicine [address] [place] [address] External, Scanning Provider Social History Tobacco Use Types Packs/Day Years Used Date Smoking Tobacco: Never Smokeless Tobacco: Never Alcohol Use Standard Drinks/Week Comments Yes 0 (1 standard drink = 0.6 oz pur e alcohol) Socially [facility] Utilities Answer Date Recorded In the past 12 months has [employer] electric, gas, oil, or water company threatened [...] often do you attend chur ch or judaism services? More than 4 times per year [...] Answer Date Recorded Total Score 0 03/07/2022 [facility] Accident of Occupat ional Health - Occupational Stress [...] 08/29/2024 9:30 AM EDT Office Visit [facility]icians Plastic and Reconstructive Surgery [address] [place] [address] [address] [place] [address] Shereen Smallwood PA-C [address] [place] [address], [facility] [[email or web address] [address] [place] [address] 10/26/2024 8:30 AM EDT Telephone Visit [facility] Gynecology Oncology, A Department of [address] [place] [address] [place] [address] [place] [address], [address] [place], [place] [id number] documented as of this encounter Procedures Procedure [...] documented as of this encounter Care Teams Multifocal Button Generator Relationship Specialty Start Date End Date Amira, Amy L, BELLOWS ASSEMBLER-VIDEO GAME REPAIR TECHNICIAN [address] [place] [address] PCP - General 11/28/16 documented as of this encounter
--- OUTSIDE RECORDS SUMMARY | 2024-08-25 14:04 | XMS_ITS | Encounter Summary ---
Author Organization [facility] Address [address] [place] [address] Care Team Providers Care Lamination Machine Operator Name Role Phone Randy Lu MD Primary Care Provider Encounter Details Date Type Department Care Team ([facility] Contact Info) Description 09/09/[address] [facility] [address] [address] [place] [address] Evan Thompson DO [address] [place], [facility] Social History Tobacco Use [...] AM EDT Office [facility] [address] [facility] [address] Evan Thompson DO [address] [place], [place] [address] documented as of this encounter Visit Diagnoses Not on filedocumented in this encounter Care Teams Lamination Machine Operator Relationship Specialty Start Date End Date Randy Lu MD PCP - General Family Medicine 04/02/23 documented as of this encounter
--- OUTSIDE RECORDS SUMMARY | 2024-08-25 14:04 | XMS_ITS | Encounter Summary ---
Author Organization [facility] Address [address] [place] [address] Care Team Providers Care Rn Endocrinology Name Role Phone Randy Lu MD Primary Care Provider Encounter Details Date Type Department Care Team ([facility] Contact Info) Description 01/07/2024 Abstract [facility] [address] [address] [address] Evan Thompson DO [address] [place], [facility]11 Social History Tobacco Use Types Packs/Day [...] 06/12/2025 10:00 AM EDT Office Visit [facility] [address] [facility] [place] [address] Evan Thompson DO [address] [place], [place] [address] documented as of this encounter Visit Diagnoses Not on filedocumented in this encounter Care Teams Rn Endocrinology Relationship Specialty Start Date End Date Randy Lu MD PCP - General Family Medicine 04/02/23 documented as of this encounter
--- OUTSIDE RECORDS SUMMARY | 2024-08-25 14:04 | XMS_ITS | Encounter Summary ---
Author Organization [facility] Address [facility] [id number] [address] [place] [address] Care Team Providers Care Pondman Name Role Phone Amy Collier COVERAGE SPECIALIST RN-ERECTOR OPERATOR Primary Care Provider + Reason for Visit * Reason Comments Med Refill Encounter Details Date Type Department Care Team (Late st Contact Info) Description 04/28/2022 Refill [facility] Internal Medicine - Family Medicine [address] [place] [address] [facility] [address] [place] [address] Social History Tobacco Use Types Packs/Day Years [...] any clubs o r organizations such as congregational groups, unions, fraternal or athletic groups, or [...] Total Score 0 03/07/2022 [facility] [place] of Occupat ional Health - Occupational Stress [...] 08/29/2024 9:30 AM EDT Office Visit [facility] Plastic and Reconstructive Surgery [address] [facility] [address] [place] [address] Shereen Smallwood PA-C [address] [place] [address] 10/26/2024 8:30 AM EDT Telephone Visit [facility] Gynecology Oncology, A Department of [address] [place] [address] Raymond Sepulveda MD [address] [facility], [address] [place] [address] documented as of this encounter Visit Diagnoses Not on filedocumented in this encounter Additional Health Concerns Assessment Noted Time PHQ-9 Depression Total Score: 0 03/07/19 23 11:14 AM EST documented as of this encounter Care Teams Pondman Relationship Specialty Start Date End Date Amy Collier, COVERAGE SPECIALIST RN-ERECTOR OPERATOR [address] [place] [address] PCP - General 11/28/16 documented as of this encounter
--- OUTSIDE RECORDS SUMMARY | 2024-08-25 14:04 | XMS_ITS | Encounter Summary ---
Author Organization [employer] Address [id number] [address] [place] [address] Care Team Providers Care Valuation Consultant Name Role Phone Amy Collier MEMBERSHIP SECRETARY-PARTS LISTER Primary Care Provider + Reason for Referral * Misc (Routine) - Pending Review Specialty Diagnoses / Procedures Referred By Contac t Referred To Contact Diagnoses Malignant neoplasm of lower-inner quadrant of right breast of female, estrogen receptor positive (CMS-HCC) Procedures Follow anesthesia guideines Christy He MD [address] [place] [phone] Phone: tel: fax: Referral ID Status Reason Start Date Expiration Date V isits Requested Visits Authorized [id number] Pending Review 10/02/2023 10/01/2024 1 1 Encounter Details Date Type Department Care Team (Late st Contact Info) Description 10/02/2023 Orders Only [facility] [address] [place] [address] Christy He MD [address] [place] [phone] Malignant neoplasm of lower-inner quadrant of [...] 9:30 AM EDT Office Visit [facility] Physicians Plastic and Reconstructive Surgery [facility] [address] [place] [address] Shereen Smallwood, PANicolasC 530[facility] , [facility] [address] [place] [address] 10/26/2024 8:30 AM EDT Telephone Visit [facility] Gynecology Oncology, A Department of [place] [address] [address] [facility] [address] [place] [address] Raymond Sepulveda MD [address] [facility], [address] [place] [address] Scheduled Orders Name Type Priority Associated Diagnoses Orde r Schedule Mammography specimen films right Imaging Routine Malignant neoplasm of lower-inner quadrant of right breast of female, estrogen receptor positive ([facility]) 1 Occurrences starting 10/02/2023 until 10/01/2024 documented as of this encounter Results * Ultrasound guided localization breast initial right (10/16/2023 2:08 PM EDT) Anatomical Region Laterality Modality Breast Right Ultrasound 10/16/2023 2:27 PM EDT Narrative 10/16/2023 2:32 PM EDT YASMIN FLANNERY 1970 [id number], [id number] EXAM: MAMM POST BX DIAG UNI RT, [...] Miller MD - 10/16/2023 YASMIN FLANNERY 1970 [id number], [id number] EXAM: MAMM POST BX DIAG UNI RT, [...] documented as of this encounter Care Teams Valuation Consultant Relationship Specialty Start Date End Date Amy Collier, MEMBERSHIP SECRETARY-PARTS LISTER [address] [place] [address] PCP - General 11/28/16 documented as of this encounter
--- OUTSIDE RECORDS SUMMARY | 2024-08-25 14:04 | XMS_ITS | Encounter Summary ---
Author Organization [email or web address] Address [facility]-[id number] [address] [place] [address] Care Team Providers Care Sandwich Peddler Name Role Phone Amy Collier PLAYER DEVELOPMENT EXECUTIVE-CLEARING DISTRIBUTION CLERK Primary Care Provider + Encounter Details Date Type Department Care Team (Late st Contact Info) Description 09/14/2023 Orders Only [facility] Internal Medicine - Family Medicine [address] [place] [phone] Ref Prov, [place] [address] Social History Tobacco Use Types Packs/Day Years [...] How often do you attend chur or zoroastrian services? More than 4 times [...] Recorded Do you need help finding a [facility] career center and/or a training program? [...] Description 08/29/2024 9:30 AM EDT Office Visit [facility] Physicians Plastic and Reconstructive Surgery [address] [facility] [address] [place] [address] Shereen Smallwood, PANicolasC [address] [facility], [address] [place] [address] 10/26/2024 8:30 AM EDT Telephone Visit [facility] Gynecology Oncology, A Department of [facility] [address] [facility] [address] [place] [address] [place] [address] [place] [address], [address] [place], [place] [phone] documented as of this encounter Procedures Procedure [...] documented as of this encounter Care Teams Sandwich Peddler Relationship Specialty Start Date End Date Amy Collier, PLAYER DEVELOPMENT EXECUTIVE-CLEARING DISTRIBUTION CLERK [address] [place] [address] PCP - General 11/28/16 documented as of this encounter
--- OUTSIDE RECORDS SUMMARY | 2024-08-25 14:04 | XMS_ITS | Encounter Summary ---
Author Organization [employer] Address [facility]-[id number] [address] [place] [address] Care Team Providers Care Watch Technician Name Role Phone Amy Collier MAJOR ASSEMBLY INSPECTOR-TASSEL MAKER Primary Care Provider + Reason for Referral * Specialty Diagnoses / Procedures Referred By Jose olmedo Referred To Contact Vascular Surgery TIAGO CARSON [address] [place] [address] Referral ID Status Reason Start Date Expiration Date Visits Re quested Visits Authorized Encounter Details Date Type Department Care Team (Late st Contact Info) Description 09/21/2023 Orders Only [facility] Internal Medicine - Family Medicine [address] [place] [phone] Ref Prov, [place] [address] Social History Tobacco Use Types Packs/Day Years [...] any clubs o r organizations such as orthodoxy groups, unions, fraternal or athletic groups, or [...] Answer Date Recorded Total Score 0 03/07/2022 [facility] of Occupat ional [facility] - Occupational Stress Questionnaire Answer Date [...] Description 08/29/2024 9:30 AM EDT Office Visit [facility] Physicians Plastic and Reconstructive Surgery [address] [place] [address] [address] [place] [address] Shereen Smallwood PA-C [address] [facility], [facility] [address] [place] [address] 10/26/2024 8:30 AM EDT Telephone Visit [facility] Gynecology Oncology, A Department of [address] [place] [address] [place] [address] [place] [address], [address] [place], [place] [phone] documented as of this encounter Procedures Procedure [...] documented as of this encounter Care Teams Watch Technician Relationship Specialty Start Date End Date Amy Collier APRN-TASSEL MAKER [address] [place] [address] PCP - General 11/28/16 documented as of this encounter
--- OUTSIDE RECORDS SUMMARY | 2024-08-25 14:04 | XMS_ITS | Encounter Summary ---
Author Organization [facility] Address [address] [place] [address] Care Team Providers Care Hot Blaster Name Role Phone Randy Lu MD Primary Care Provider Encounter Details Date Type Department Care Team (Late Contact Info) Description 02/10/2024 Abstract [facility] OB [address] [place] [address] Evan Thompson DO [facility] Janeth Palacios, [facility]11 Social History Tobacco Use Types Packs/Day [...] 06/12/2025 10:00 AM EDT Office Visit [facility] [address] [place] [address] Evan Thompson DO [facility] Janeth [place] [id number] documented as of this encounter Visit Diagnoses Not on filedocumented in this encounter Care Teams Hot Blaster Relationship Specialty Start Date End Date Randy Lu MD PCP - General Family Medicine 04/02/23 documented as of this encounter
--- OUTSIDE RECORDS SUMMARY | 2024-08-25 14:04 | XMS_ITS | Encounter Summary ---
Author Organization [employer] Address [facility]-[id number] [address] [place] [address] Care Team Providers Care Product Development Technician Name Role Phone Amy Collier ASW SPECIALIST-CLEARING SUPERVISOR Primary Care Provider + Encounter Details Date Type Department Care Team (Late st Contact Info) Description 10/27/2023 Orders Only [facility] [address] [facility] [address] [place] [address] Ref Prov, [place] [address] Social History Tobacco Use Types Packs/Day Years Used Date Smoking Tobacco: Never Smokeless Tobacco: Never Alcohol Use Standard Drinks/Week Comments Yes 0 (1 standard drink = 0.6 oz pur e alcohol) Socially [facility] Utilities Answer Date Recorded In the past 12 months has [employer] electric, gas, oil, or water company threatened [...] often do you attend chur ch or rastafarian services? More than 4 times per year 02/27/2022 Do you belong to any clubs o r organizations such as mandaeism groups, unions, fraternal or athletic groups, or [...] Answer Date Recorded Total Score 0 03/07/2022 [facility] [place] of Occupat ional Health - Occupational Stress [...] 08/29/2024 9:30 AM EDT Office Visit [facility] Physicians Plastic and Reconstructive Surgery [address] [place], [place] [address] [address] [place] [address] Shereen Smallwood PA-C 5308 [facility] , [facility] [address] [place] [address] 10/26/2024 8:30 AM EDT Telephone Visit [facility] Gynecology Oncology, A Department of [address] [facility] [address] [place] [address] Raymond Sepulveda MD [address] [facility], [address] [place] [address] documented as of this encounter Procedures Procedure Name Priority Date/Time Associated Diagnosis Comments MULTIPLE LABS Routine 10/27/2023 10:43 AM EDT documented in this encounter Results * Multiple labs (10/27/2023 10:43 AM EDT) us Not In System Ref Prov AL IMAGING Final Res ult MANUALLY TRANSCRIBED RESULTS documented in this encounter Visit Diagnoses Not on filedocumented in this encounter Additional Health Concerns Assessment Noted Time PHQ-9 Depression Total Score: 0 03/07/19 23 11:14 AM EST documented as of this encounter Care Teams Product Development Technician Relationship Specialty Start Date End Date Amy Collier, ASW SPECIALIST-CLEARING SUPERVISOR [address] [place] [address] PCP - General 11/28/16 documented as of this encounter
--- OUTSIDE RECORDS SUMMARY | 2024-08-25 14:04 | XMS_ITS | Encounter Summary ---
Author Organization [employer] Address [facility]-[id number] [address] [place] [address] Care Team Providers Care Head Waiter/Waitress Banquet Name Role Phone Amy Collier LURER-REPAIRER EVAPORATOR Primary Care Provider + Encounter Details Date Type Department Care Team (Late st Contact Info) Description 09/01/2023 Orders Only [facility] Internal Medicine - Family Medicine [address] [place] [address] Ref Prov, [place] [address] Social History Tobacco Use Types Packs/Day Years [...] How often do you attend chur or mandaen services? More than 4 times [...] Answer Date Recorded Total Score 0 03/07/2022 [facility] of Occupat ional Health - [...] help finding a [facility] career center and/or a training [...] 9:30 AM EDT Office Visit [facility] Physicians Plastic and Reconstructive Surgery [address] [facility] [address] [place] [address] Shereen Smallwood, PA-C [address], [address] [place] [address] 10/26/2024 8:30 AM EDT [facility], A Department of [place] [address] [facility] [address] [place] [address] [place] [address] [place] [address], [address] [place], [place] [phone] documented as of this encounter Procedures Procedure [...] documented as of this encounter Care Teams Head Waiter/Waitress Banquet Relationship Specialty Start Date End Date Amy Collier, LURER-REPAIRER EVAPORATOR [address] [place] [address] PCP - General 11/28/16 documented as of this encounter
--- OUTSIDE RECORDS SUMMARY | 2024-08-25 14:04 | XMS_ITS | Encounter Summary ---
Author Organization [facility] Address [facility]-[id number] [address] [place] [address] Care Team Providers Care Director Regulatory Affairs Name Role Phone Amy Collier FIRST LINE SUPERVISOR-MANAGER IT TRAINING Primary Care Provider + Encounter Details Date Type Department Care Team (Late st Contact Info) Description 08/31/2023 Orders Only [facility] Internal Medicine - Family Medicine [address] [place] [phone] Kodi Monteiro CMA Malignant neoplasm of right female breast, unspecified estrogen receptor status, unspecified site of breast ([facility]) Social History Tobacco Use Types Packs/Day Years [...] Answer Date Recorded Total Score 0 03/07/2022 [facility] of Occupat ional Health - Occupational Stress [...] Description 08/29/2024 9:30 AM EDT Office Visit [facility] Physicians Plastic and Reconstructive Surgery [address] [place] [address] [address] [place] [phone] Shereen Smallwood PA-C [address] [facility], [facility] [address] [place] [address] 10/26/2024 8:30 AM EDT Telephone Visit [facility] Gynecology Oncology, A Department of [address] [place] [address] [place] [address] [place] [address], [address] [place], [place] [phone] documented as of this encounter Visit Diagnoses Diagnosis Malignant neoplasm of right female breast, unspecified estrogen receptor status, unspecified site of breast ([facility]) documented in this encounter Additional Health Concerns Assessment Noted Time PHQ-9 Depression Total Score: 0 03/07/19 23 11:14 AM EST documented as of this encounter Care Teams Director Regulatory Affairs Relationship Specialty Start Date End Date Amy Collier APRN-ESPERANZA [address] [place] [address] PCP - General 11/28/16 documented as of this encounter
--- OUTSIDE RECORDS SUMMARY | 2024-08-25 14:04 | XMS_ITS | Encounter Summary ---
Author Organization [facility] Address [facility] [place] [address] Care Team Providers Care Offender Job Retention Specialist Name Role Phone Nilda Carolina RICHTER Unavailable [phone] Jessica Hope MD Unavailable [phone] Lynda Manuel CNP Primary Care Provider [phone] Shereen Smallwood PA-C Unavailable [phone] Radha Martinez RN Unavailable Source Comments In the event this information is protected by the Federal Confidentiality of Alcohol and Drug AbusePatient Records regulations: The Federal rules restrict any use of the information to criminally investigate or prosecute any alcohol or drug abuse patient.[facility] Encounter Details Date Type Department Care Team (Late st Contact Info) Description 07/22/2024 Lab Requisition [facility] [address] [place] [address] [place] [address] [place] [address] Person encountering health services to [...] is lower risk 7 07/21/2024 Data from: https://www.neighborhoodatlas.[facility]/. Last address used for calculation [address] [...] EDT) Case Report Surgical Pathology Report Case: [id number] Authorizing Provider: Aurelia Oneill MD Collected: 07/22/2024 03:52 PM Ordering Location: [facility] Received: 07/22/2024 03:51 PM [facility] Pathologist: Michael López MD Specimen: Slide(s), 11 SLIDES [id number] 08/09/2024 9:01 AM EDT [facility] FINAL DIAGNOSIS Liver mass, biopsy: - Adenocarcinoma, compatible with breast origin. 08/09/2024 9:01 AM EDT [facility] at 1337 EDT Diagnosis Comment Tumor cells are positive for CK7 and GATA3, with weak expression for ER. Negative stains include CK19, SC, and CDX2. 08/09/2024 9:01 AM EDT [facility] Performing Lab Diagnostic interpretation performed at: [facility], [address] [place] [address], [address] [id number] Metal Building Assembler: Derick Meadows MD 08/09/2024 9:01 AM EDT [facility] Addendum Breast biomarkers (ER, PgR, and HER2) performed at the outside institution are available for review at the [facility] and demonstrate the tumor cells to be positive for ER (30% nuclear staining of tumor cells with moderate staining intensity), negative for SC (<1% nuclear staining of tumor cells), and negative for HER2 (score of 1+). RS/rs 08/09/24 08/09/2024 9:01 AM EDT [facility] Addendum electronically signed by Kev Kang MD on 08/09/2024 at 0901 EDT Disclaimer Laboratory Developed Test (LDT) Disclaimer: Performance characteristics of immunohistochemica l, immunofluorescent, and chromogenic in-situ hybridization tests have been determined by the performing laboratory within [facility]'s [facility] Pathology and Laboratory Medicine Department ([facility], [facility], [facility], [facility], [facility], [facility], or [facility]) in a manner consistent with CLIA requirements. One or more of these tests may not have been cleared or approved by the FDA. [facility] is regulated under CLIA as qualified to perform high-complexity testing. These tests are used for clinical purposes. These should not be regarded as investigational or for research. Positive and negative controls stain appropriately. 08/09/2024 9:01 AM EDT [facility] Blocks or Slides MICROSCOPE SLIDE / Unknown 07/22/2024 3:52 PM EDT 07/22/2024 3:51 PM EDT us Aurelia Oneill MD SURGICAL PATHOLOGY Edited Result - Final [facility] [address] [facility] [address] documented in this encounter Visit Diagnoses Diagnosis Person encountering health services to consult on behalf of another person Other person consulting on behalf of another person documented in this encounter Care Teams Offender Job Retention Specialist Relationship Specialty Start Date End Date Lynda Manuel, INSTRUMENT TECHNICIAN [address] [facility] [place] [address] PCP - General Family Medicine 06/14/24 Carolina Munguia APRN 5700 [facility] [address] [place] [address] 12/04/23 Jessica Hope MD [address] [place] [address] Referring Hematology/Oncology 06/14/24 Shereen Smallwood PA-C [address] [facility] [address] [place] [address] [facility] Referring Orthopedics 06/15/24 [place] [address] [place] [address] Specialty Manager Target Hematology/Oncology 07/31/24 documented as of this encounter
--- OUTSIDE RECORDS SUMMARY | 2024-08-25 14:04 | XMS_ITS | Encounter Summary ---
Author Organization [facility] Address [address] [place] [address] Care Team Providers Care Electrician'S Assistant Name Role Phone Randy Lu MD Primary Care Provider Encounter Details Date Type Department Care Team ([facility] Contact Info) Description 11/16/2023 Abstract [facility] [address] [address] Evan Thompson DO [address] [place], [facility] Social History Tobacco Use Types Packs/Day Years [...] 06/12/2025 10:00 AM EDT Office Visit [facility] [address] [place] [address] Evan Thompson DO [address] [place], [place] [address] documented as of this encounter Visit Diagnoses Not on filedocumented in this encounter Care Teams Electrician'S Assistant Relationship Specialty Start Date End Date Randy Lu MD PCP - General Family Medicine 04/02/23 documented as of this encounter
--- OUTSIDE RECORDS SUMMARY | 2024-08-25 14:05 | XMS_ITS | Encounter Summary ---
Author Organization [employer] Address [facility]-[id number] [address] [place] [address] Care Team Providers Care Active Directory Systems Administrator Name Role Phone Amy Collier DIESEL MECHANIC-HOME WORKER Primary Care Provider + Encounter Details Date Type Department Care Team (Late st Contact Info) Description 08/24/2024 Telephone [facility] Internal Medicine - Family Medicine [address] [place] [address] Kodi Monteiro CMA Social History Tobacco Use Types Packs/Day Years Used Date Smoking Tobacco: Never Passive Smoke Exposure: Past Smokeless Tobacco: Never Alcohol Use Standard Drinks/Week Comments Not Currently 0 (1 standard drink = 0.6 oz pur e alcohol) [facility] Utilities Answer Date Recorded In the past 12 months has [employer] electric, gas, oil, or water company threatened [...] often do you attend chur ch or faith services? More than 4 times [...] Answer Date Recorded Total Score 0 08/10/2024 [facility] of Occupat ional Health - Occupational Stress [...] AM EDT Dr No Urena Pharmacist at [facility] called and would like to have a discussion about this pt. Her Lab results indicate some medications need to be addressed. Her Phone number to talk directly to her is [phone] documented in this encounter Plan of Treatment Upcoming Encounters Date Type Department Care Team (Late st Contact Info) Description 08/29/2024 9:30 AM EDT Office Visit [facility] Physicians Plastic and Reconstructive Surgery [address] [address] [place] [address] Shereen Smallwood PA-C [address] [facility] , [facility] [address] [place] [address] 10/26/2024 8:30 AM EDT Telephone Visit [facility] Gynecology Oncology, A Department of [facility] [address] [facility] [address] [place] [address] Raymond Sepulveda MD [address] [facility], [address] [place] [address] documented as of this encounter Goals Goal Patient Goal Type Associated Problems Recent Progress Patient-Stated? Author return home General Yes Mariah Gonsalez, RN Note: Evaluation of progress towards goal: progressing, patient will return home at discharge/follow up [facility] Autogenerated Goal Care Plan Autogenerated Problem No BenjiSkyla montano documented as of this encounter Visit Diagnoses Not on filedocumented in this encounter Additional Health Concerns Active Problems Noted Date Diagnosed Date Autogenerated Problem 08/09/2024 Assessment Noted Time PHQ-9 Depression Total Score: 0 08/11/19 25 3:50 PM EDT documented as of this encounter Care Teams Active Directory Systems Administrator Relationship Specialty Start Date End Date Amy Collier, DIESEL MECHANIC-HOME WORKER [address] [place] [address] PCP - General 11/28/16 documented as of this encounter
--- OUTSIDE RECORDS SUMMARY | 2024-08-25 14:05 | XMS_ITS | Encounter Summary ---
Author Organization [employer] Sys tem Address [facility][id number] [address] [place] [address] Care Team Providers Care Riding Instructor Name Role Phone Amy Collier VICE PRESIDENT QUALITY IMPROVEMENT-SUPERVISOR MACHINING Primary Care Provider + Encounter Details Date Type Department Care Team (Late st Contact Info) Description 04/23/2023 Orders Only [facility] - Family Medicine [address] [place] [address] External, Scanning Provider Social History [...] How often do you attend chur or anabaptist services? More than 4 times [...] Answer Date Recorded Total Score 0 03/07/2022 [facility] of Occupat ional Health - Occupational [...] Description 08/29/2024 9:30 AM EDT [facility] [address] [facility] [address] [place] [address] Shereen Smallwood PA-C [address] [facility], [facility] [address] [place] [address] 10/26/2024 8:30 AM EDT [facility], A Department of [address] [place] [address] Raymond Sepulveda MD [address] [place] [address], [address] [place] [address] documented as of this encounter [...] documented as of this encounter Care Teams Riding Instructor Relationship Specialty Start Date End Date Amy Collier, VICE PRESIDENT QUALITY IMPROVEMENT-SUPERVISOR MACHINING [address] [place] [address] PCP - General 11/28/16 documented as of this encounter
--- OUTSIDE RECORDS SUMMARY | 2024-08-25 14:05 | XMS_ITS | Encounter Summary ---
Author Organization [employer] Sys tem Address [facility][id number] [address] [place] [address] Care Team Providers Care Animal Care Giver Name Role Phone Amy Collier TRAINING PROJECT MANAGER-CITY PLANNER Primary Care Provider + Reason for Visit * Reason Comments Med Refill Encounter Details Date Type Department Care Team (Late st Contact Info) Description 06/04/2022 Refill [facility] - Family Medicine [address] [place] [phone] Lynda Manuel, TRAINING PROJECT MANAGER-QUALITY ANALYST [address] [facility] [place] [address] Social History Tobacco Use Types Packs/Day Years [...] any clubs o r organizations such as evangelical groups, unions, fraternal or athletic groups, or [...] Date Recorded Total Score 0 03/07/2022 [facility] [place] of Occupat ional Health - Occupational Stress [...] 08/29/2024 9:30 AM EDT Office Visit [facility]icians Plastic and Reconstructive Surgery [address] [facility] [address] [place] [address] Shereen Smallwood, PA-C [address] [facility], [facility] [address] [place] [address] 10/26/2024 8:30 AM EDT Telephone Visit [facility] Gynecology Oncology, A Department of [place] [address] [facility] [address] [place] [address] Raymond Sepulveda MD [address] [facility], [address] [place], [place] [phone] documented as of this encounter Visit Diagnoses Not on filedocumented in this encounter Additional Health Concerns Assessment Noted Time PHQ-9 Depression Total Score: 0 03/07/19 23 11:14 AM EST documented as of this encounter Care Teams Animal Care Giver Relationship Specialty Start Date End Date Amy Collier, ROBER-CITY PLANNER [address] [place] [address] PCP - General 11/28/16 documented as of this encounter
--- OUTSIDE RECORDS SUMMARY | 2024-08-25 14:05 | XMS_ITS | Encounter Summary ---
Author Organization [employer] Sys tem Address [facility] [id number] [address] [place] [address] Care Team Providers Care Insurance Loss Assessor Name Role Phone Amy Collier KAITARA TARAKA-DISPERSION MIXER Primary Care Provider + Encounter Details Date Type Department Care Team (Late st Contact Info) Description 08/12/2024 [facility]phone [facility] [address] [facility] [address] [place] [address] Jhon Rosado MD [address], [facility] [address] [place] [address] Social History Tobacco Use Types Packs/Day Years Used Date Smoking Tobacco: Never Passive Smoke Exposure: Past Smokeless Tobacco: Never Alcohol Use Standard Drinks/Week Comments Not Currently 0 (1 standard drink = 0.6 oz pur e alcohol) [facility] Utilities Answer Date Recorded In the past 12 months has [employer], gas, oil, or water [employer] threatened to shut off services in your [...] any clubs o r organizations such as confucianist groups, unions, fraternal or athletic groups, or [...] Answer Date Recorded Total Score 0 08/10/2024 [facility] of Occupat [facility] - Occupational Stress Questionnaire Answer Date [...] 1:44 PM EDT Jared from [facility] called to say patient was positive for AFB and he sent it out. * Telephone Encounter - Kendy Pablo - 08/12/2024 1:44 PM EDT Message sent to Dr. Poole documented in this encounter Plan of Treatment Upcoming Encounters Date Type Department Care Team (Late st Contact Info) Description 08/29/2024 9:30 AM EDT Office Visit [facility] Physicians Plastic and Reconstructive Surgery [address] [facility] [place] [address] Shereen Smallwood, PANicolasC [address], [address] [facility] [place] [address] 10/26/2024 8:30 AM EDT Telephone Visit [facility] Gynecology Oncology, A Department of [facility] [address] [facility] [place] [address] Raymond Sepulveda MD [address] [facility], [address] [place] [address] documented as of this encounter Goals Goal Patient Goal Type Associated Problems Recent Progress Patient-Stated? 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
--- OUTSIDE RECORDS SUMMARY | 2024-08-25 14:05 | XMS_ITS | Encounter Summary ---
Author Organization [facility] Sys tem Address [facility] [place][id number] [address] [place] [address] Care Team Providers Care Ring Sorter Name Role Phone Amy Collier STAINED GLASS JOINER-ENGINEERING OPERATOR Primary Care Provider + Encounter Details Date Type Department Care Team (Late st Contact Info) Description 04/03/2023 Orders Only [facility] - Family Medicine [address] [place] [address] Amy Collier APRN-ENGINEERING OPERATOR [address] [place] [address] Social History Tobacco Use Types Packs/Day Years [...] often do you attend chur ch or hinduism services? More than 4 times per year [...] Answer Date Recorded Total Score 0 03/07/2022 [facility] [place] of Occupat ional Health - Occupational Stress [...] 08/29/2024 9:30 AM EDT Office Visit [facility] Physicians Plastic and Reconstructive Surgery [address] [facility] 280 [place] [address] Shereen Smallwood PA-C [address] [facility], [facility] 280 [place] [address] 10/26/2024 8:30 AM EDT Telephone Visit [facility] Gynecology Oncology, A Department of [address] [place] [address] [place] [address] [place] [address], [address] [place] [address] documented as of this encounter [...] documented as of this encounter Care Teams Ring Sorter Relationship Specialty Start Date End Date Amy Collier APRN-CNP [address] [place] [address] PCP - General 11/28/16 documented as of this encounter
--- OUTSIDE RECORDS SUMMARY | 2024-08-25 14:05 | XMS_ITS | Encounter Summary ---
Author Organization [facility] Sys tem Address [facility][id number] [address] [place] [address] Care Team Providers Care Microstrategy Reports Developer Name Role Phone Amy Collier ELECTRICAL/INSTRUMENT TECHNICIAN-FRONT DESK WORKER Primary Care Provider + Encounter Details Date Type Department Care Team (Late st Contact Info) Description 03/30/2023 Orders Only [facility] - Family Medicine [address] [place] [phone] Amy Collier APRN-FRONT DESK WORKER [address] [place] [address] Social History Tobacco Use Types Packs/Day Years [...] often do you attend chur ch or moravian services? More than 4 times per year 02/27/2022 Do you belong to any clubs o r organizations such as mu-ism groups, unions, fraternal or athletic groups, or [...] Answer Date Recorded Total Score 0 03/07/2022 [facility] [place] of Occupat ional Health - Occupational Stress [...] to let her know that I called [facility] and they did not see the results yet but they are going to call their Pathology person and see if they are ready yet and they will get back with me. Patient is ok with that. documented in this encounter Plan of Treatment Upcoming Encounters Date Type Department Care Team (Late st Contact Info) Description 08/29/2024 9:30 AM EDT Office Visit [facility] Physicians Plastic and Reconstructive Surgery [address] [place] [address] [address] [place] [address] Shereen Smallwood, DAYTONC [address] [facility], [address] [place] [address] 10/26/2024 8:30 AM EDT Telephone Visit [facility] Gynecology Oncology, A Department of [facility] [address] [facility] [address] [place] [address] [place] [address] [place] [address], [address] [place] [address] documented as of this encounter Visit Diagnoses Not on filedocumented in this encounter Additional Health Concerns Assessment Noted Time PHQ-9 Depression Total Score: 0 03/07/19 23 11:14 AM EST documented as of this encounter Care Teams Microstrategy Reports Developer Relationship Specialty Start Date End Date Amy Collier, ELECTRICAL/INSTRUMENT TECHNICIAN-FRONT DESK WORKER [address] [place] [address] PCP - General 11/28/16 documented as of this encounter
--- OUTSIDE RECORDS SUMMARY | 2024-08-25 14:05 | XMS_ITS | Encounter Summary ---
Author Organization [facility] Sys tem Address [facility]-[id number] [address] [place] [address] Care Team Providers Care Filtration Operator Name Role Phone Amy Collier CIVIL PREPAREDNESS TRAINING OFFICER-FURNACE SETTER Primary Care Provider + Encounter Details Date Type Department Care Team (Late st Contact Info) Description 03/23/2023 Orders Only [facility] - Family Medicine [address] [place] [address] Nat Javed CMA Abnormal mammogram [...] How often do you attend chur or baptism services? More than 4 times per year [...] Answer Date Recorded Total Score 0 03/07/2022 [facility] of Occupat ional Health - [...] Recorded Do you need help finding a [facility] career center and/or a training program? No [...] Description 08/29/2024 9:30 AM EDT Office Visit [facility] Physicians Plastic and Reconstructive Surgery [address] [facility] [address] [place] [address] Shereen Smallwood, PANicolasC [address] [facility] , [address] [place] [address] 10/26/2024 8:30 AM EDT Telephone Visit [facility] Gynecology Oncology, A Department of [facility] [address] [facility] [address] [place] [address] Raymond Sepulveda MD [address] [place] [address], [address] [place], [place] [phone] documented as of this encounter Procedures Procedure Name Priority Date/Time Associated Diagnosis Comments US BREAST RT LIMITED Routine 03/20/2023 Abnormal mammogram of right breast documented in this encounter Results * Ultrasound breast limited right (03/20/2023) Anatomical Region Laterality Modality Breast Right Ultrasound 03/20/2023 us Amy [facility] US ORDERABLES Final Result documented in this encounter Visit Diagnoses Diagnosis Abnormal mammogram of right breast documented in this encounter Additional Health Concerns Assessment Noted Time PHQ-9 Depression Total Score: 0 03/07/19 23 11:14 AM EST documented as of this encounter Care Teams Filtration Operator Relationship Specialty Start Date End Date Amy Collier APRN-CNP [address] [place] [address] PCP - General 11/28/16 documented as of this encounter
--- OUTSIDE RECORDS SUMMARY | 2024-08-25 14:05 | XMS_ITS | Encounter Summary ---
Author Organization [facility] Sys tem Address [facility] [place]-[id number] [address] [place] [address] Care Team Providers Care Laminator Name Role Phone Amy Collier MANUFACTURING CONTROLLER-SPECIAL EDUCATION INSTRUCTOR Primary Care Provider + Encounter Details Date Type Department Care Team (Late st Contact Info) Description 08/18/2022 Orders Only [facility] - Family Medicine [address] [place] [address] External, Scanning Provider Social History [...] How often do you attend chur or yarsanism services? More than 4 times [...] Description 08/29/2024 9:30 AM EDT Office Visit [facility] Physicians Plastic and Reconstructive Surgery [address] [facility] [address] [place] [phone] Shereen Smallwood PA-C [address] [facility], [facility] [address] [place] [address] 10/26/2024 8:30 AM EDT [facility] A Department of [facility] [address] [facility] [address] [place] [address] Raymond Sepulveda MD [address] [place] [address], [address] [place] [address] documented as of this encounter Procedures Procedure Name Priority Date/Time Associated Diagnosis Comments MULTIPLE LABS Routine 08/15/2022 documented in this encounter Results * Multiple labs (08/15/2022) us Scanning Provider External PA IMAGING Final Result MANUALLY TRANSCRIBED RESULTS documented in this encounter Visit Diagnoses Not on filedocumented in this encounter Additional Health Concerns Assessment Noted Time PHQ-9 Depression Total Score: 0 03/07/19 23 11:14 AM EST documented as of this encounter Care Teams Laminator Relationship Specialty Start Date End Date Amy Collier, MANUFACTURING CONTROLLER-SPECIAL EDUCATION INSTRUCTOR [address] [place] [address] PCP - General 11/28/16 documented as of this encounter
--- OUTSIDE RECORDS SUMMARY | 2024-08-25 14:05 | XMS_ITS | Encounter Summary ---
Author Organization [employer] tem Address [facility][id number] [address] [place] [address] Care Team Providers Care Pull Tab Dealer Name Role Phone Amy Collier BULL CHAIN OPERATOR-CISCO CERTIFIED NETWORK PROFESSIONAL Primary Care Provider + Encounter Details Date Type Department Care Team (Latest Contact Info) Description 08/18/2024 Travel Social History Tobacco Use Types Packs/Day Years Used Date Smoking Tobacco: Never Passive Smoke Exposure: Past Smokeless Tobacco: Never Alcohol Use Standard Drinks/Week Comments Not Currently 0 (1 standard drink = 0.6 oz pur e alcohol) [facility] Utilities Answer Date Recorded In the past 12 months has [email or web address], gas, oil, or water company threatened [...] attend [facility] or uatsdin services? More than 4 times per year [...] Answer Date Recorded Total Score 0 08/10/2024 [facility] of Occupat ional Health [...] Do you need help finding a [facility]community hospitalal career center and/or a training program? [...] 9:30 AM EDT Office Visit [facility] Physicians Plastic and Reconstructive Surgery [address] [facility] [address] [place] [address] Shereen Smallwood PA-C [address]308 [facility], [facility] [address] [place] [address] 10/26/2024 8:30 AM EDT Telephone Visit [facility] Gynecology Oncology, A Department of [facility] [address] [facility] [address] [place] [address] [place] [address] [place] [address], [address] [place] [address] documented as of this encounter Goals Goal [...] documented as of this encounter Care Teams Pull Tab Dealer Relationship Specialty Start Date End Date Amy Collier, BULL CHAIN OPERATOR-CISCO CERTIFIED NETWORK PROFESSIONAL [address] [place] [address] PCP - General 11/28/16 documented as of this encounter
--- OUTSIDE RECORDS SUMMARY | 2024-08-25 14:05 | XMS_ITS | Encounter Summary ---
Author Organization [facility] Sys tem Address [facility]-[id number] [address] [place] [address] Care Team Providers Care Cigar Making Machine Supervisor Name Role Phone Amy Collier HYDROELECTRIC PRODUCTION TECHNICIAN-HAND BLOCKER Primary Care Provider + Encounter Details Date Type Department Care Team (Late st Contact Info) Description 03/26/2023 Orders Only [facility] - Family Medicine [address] [place] [address] Amy Collier APRN-HAND BLOCKER [address] [place] [address] Social History Tobacco Use Types Packs/Day Years [...] often do you attend chur ch or latter day services? More than 4 times per year [...] Answer Date Recorded Total Score 0 03/07/2022 [facility] of Occupat ional Health - Occupational Stress [...] Office Visit [facility]icians Plastic and Reconstructive Surgery [address] [place] [address] [address] [place] [address] Shereen Smallwood PA-C [address]308 [facility], [facility] [address] [place] [address] 10/26/2024 8:30 AM EDT Telephone Visit [facility] Gynecology Oncology, A Department of [address] [place] [address] [place] [address] [place] [address], [address] [place] [address] documented as of this encounter [...] documented as of this encounter Care Teams Cigar Making Machine Supervisor Relationship Specialty Start Date End Date Amy Collier APRN-CNP [address] [place], [place] [address] [place] [address] PCP - General 11/28/16 documented as of this encounter
--- OUTSIDE RECORDS SUMMARY | 2024-08-25 14:05 | XMS_ITS | Encounter Summary ---
Author Organization [facility] (formerly [employer]) Sys tem Address [facility]-[id number] [address] [place] [address] Care Team Providers Care Cupola Tender Name Role Phone Amy Collier HOG SAWYER-FURNACE CLERK Primary Care Provider + Encounter Details Date Type Department Care Team (Late st Contact Info) Description 03/10/2023 Orders Only [facility] - Family Medicine [address] [place] [address] Amy Collier APRN-FURNACE CLERK [address] [place] [address] Abnormal mammogram of right breast Social History [...] often do you attend chur ch or mandaeism services? More than 4 times per year 02/27/2022 Do you belong to any clubs o r organizations such as taoist groups, unions, fraternal or athletic groups, or [...] Answer Date Recorded Total Score 0 03/07/2022 [facility] [place] of Occupat ional Health - Occupational Stress [...] Description 08/29/2024 9:30 AM EDT Office Visit [facility]icians Plastic and Reconstructive Surgery [address] [place] [address] [address] [place] [address] Shereen Smallwood PA-C [address] [facility], [facility] [address] [place] [address] 10/26/2024 8:30 AM EDT Telephone Visit [facility] Gynecology Oncology, A Department of [address] [place] [address] [place] [address] [place] [address], [address] [place] [address] documented as of this encounter [...] as of this encounter Care Teams Cupola Tender Relationship Specialty Start Date End Date Amy Collier APRN-CNP [address] [place] [address] PCP - General 11/28/16 documented as of this encounter
--- OUTSIDE RECORDS SUMMARY | 2024-08-25 14:05 | XMS_ITS | Encounter Summary ---
Author Organization [facility] Sys tem Address [facility]-[id number] [address] [place] [address] Care Team Providers Care Bag Machine Set Up Operator Name Role Phone Amy Collier HEAD END DESIZING MACHINE OPERATOR-FIRMWARE SOFTWARE VERIFICATION ENGINEER Primary Care Provider + Encounter Details Date Type Department Care Team (Late st Contact Info) Description 04/14/2023 Orders Only [facility] - Family Medicine [address] [place] [phone] Randy Lu, DO [address] [facility], [place] [address] Social History Tobacco Use Types Packs/Day Years [...] any clubs o r organizations such as temple groups, unions, fraternal or athletic groups, or [...] Answer Date Recorded Total Score 0 03/07/2022 [facility] [place] of Occupat ional Health - Occupational Stress [...] [facility] Surgery [address] [facility] [address] [place] [address] Shereen Smallwood PA-C 5308 [facility], [facility] 280 [place] [address] 10/26/2024 8:30 AM EDT Telephone Visit [facility] Gynecology Oncology, A Department of [address] [place] [address] Raymond Sepulveda MD 5308 [facility], [address] [place] [address] documented as of this encounter Visit Diagnoses Not on filedocumented in this encounter Additional Health Concerns Assessment Noted Time PHQ-9 Depression Total Score: 0 03/07/19 23 11:14 AM EST documented as of this encounter Care Teams Bag Machine Set Up Operator Relationship Specialty Start Date End Date Amy Collier APRN-FIRMWARE SOFTWARE VERIFICATION ENGINEER [address] [place] [address] PCP - General 11/28/16 documented as of this encounter
--- OUTSIDE RECORDS SUMMARY | 2024-08-25 14:05 | XMS_ITS | Encounter Summary ---
Author Organization [employer] Sys tem Address [facility]-[id number] [address] [place] [address] Care Team Providers Care Supervisor Mail Carriers Name Role Phone Amy Collier CREDIT CLERK-HOME INSPECTOR Primary Care Provider + Encounter Details Date Type Department Care Team (Late st Contact Info) Description 03/10/2023 [facility]phone [facility] Family Medicine [address] [place] [address] Nat Javed CMA Social History [...] How often do you attend chur or catholic services? More than 4 times [...] Answer Date Recorded Total Score 0 03/07/2022 [facility] of Occupat ional Health - [...] diagnostic mammogram and US right breast to [facility] - she can call to get that set up today. Herresult was cut off of the right breast but from what I can see they found some lymph enlargement and mass to right breast. Can you please call [facility] and ask them to fax the results of these tests as soon as they are read. Her abnormal mammogram was done 03/06 and we just got the result today. documented in this encounter Plan of Treatment Upcoming Encounters Date Type Department Care Team (Late st Contact Info) Description 08/29/2024 9:30 AM EDT Office Visit [facility] Physicians Plastic and Reconstructive Surgery [facility] [address] [facility] [address] [place] [address] Shereen Smallwood PA-C [address], [facility] [address] [place] [address] 10/26/2024 8:30 AM EDT [facility]phone [facility] Gyne[facility] Oncology, A Department of [place] [address] [address] [facility] [address] [place] [address] Raymond Sepulveda MD [address] [facility], [address] [place] [address] documented as of this encounter Visit Diagnoses Not on filedocumented in this encounter Additional Health Concerns Assessment Noted Time PHQ-9 Depression Total Score: 0 03/07/19 23 11:14 AM EST documented as of this encounter Care Teams Supervisor Mail Carriers Relationship Specialty Start Date End Date Amy Collier APRN-HOME INSPECTOR [address] [place] [address] PCP - General 11/28/16 documented as of this encounter
--- OUTSIDE RECORDS SUMMARY | 2024-08-25 14:05 | XMS_ITS | Encounter Summary ---
Author Organization [employer] Sys tem Address [facility]-[id number] [address] [place] [address] Care Team Providers Care Manager Paper Name Role Phone Amy Collier SALES MARKETING MANAGER-INDUSTRIAL SEAMSTRESS Primary Care Provider + Encounter Details Date Type Department Care Team (Late st Contact Info) Description 08/22/2024 Telephone [facility] Plastic and Reconstructive Surgery [address] [facility] [address] [place] [address] Viviane Lopez CMA Social History Tobacco Use Types Packs/Day Years Used Date Smoking Tobacco: Never Passive Smoke Exposure: Past Smokeless Tobacco: Never Alcohol Use Standard Drinks/Week Comments Not Currently 0 (1 standard drink = 0.6 oz pur e alcohol) [facility] Utilities Answer Date Recorded In the past 12 months has [employer] electric, gas, oil, or water [employer] threatened to shut off services in your [...] often do you attend chur ch or buddhist services? More than 4 times per year 02/27/2022 Do you belong to any clubs o r organizations such as yazidism groups, unions, fraternal or athletic groups, or [...] Answer Date Recorded Total Score 0 08/10/2024 [facility] [place] of Occupat ional Health - Occupational Stress [...] Lopez CMA - 08/22/2024 4:54 PM EDT [facility] Microbiology lab Radha called she said they have a positive culture for rico of her left breast they be reached at [phone] * Telephone Encounter - AMEENA Kennedy - 08/22/2024 4:54 PM EDT Called micro back. Positive [employer]. This is known for the patient. Currently seeing ID documented in this encounter Plan of Treatment Upcoming Encounters Date Type Department Care Team (Late st Contact Info) Description 08/29/2024 9:30 AM EDT Office Visit [facility] Physicians Plastic and Reconstructive Surgery [address] [facility] [address] [facility] [place] [address] Shereen Smallwood PA-C [address], [address] [place] [address] 10/26/2024 8:30 AM EDT Telephone Visit [facility] Gynecology Oncology, A Department of [facility] [address] [address] [place] [address] Raymond Sepulveda MD [address] [facility], [address] [place] [address] documented as of this encounter Goals Goal Patient Goal Type Associated Problems Recent Progress Patient-Stated? Author return home General Yes Mariah Gonsalez, RN Note: Evaluation of progress towards goal: progressing, patient will return home at discharge/follow up [facility] Wound care clinic Autogenerated Goal Care Plan Autogenerated Problem No Skyla Marie documented as of this encounter Visit Diagnoses Not on filedocumented in this encounter Additional Health Concerns Active Problems Noted Date Diagnosed Date Autogenerated Problem 08/09/2024 Assessment Noted Time PHQ-9 Depression Total Score: 0 08/11/19 25 3:50 PM EDT documented as of this encounter Care Teams Manager Paper Relationship Specialty Start Date End Date Amy Collier, SALES MARKETING MANAGER-INDUSTRIAL SEAMSTRESS [address] [place] [address] PCP - General 11/28/16 documented as of this encounter
--- OUTSIDE RECORDS SUMMARY | 2024-08-25 14:05 | XMS_ITS | Encounter Summary ---
Author Organization [facility] Address [facility][id number] [address] [place] [address] Care Team Providers Care Trashman Name Role Phone Amy Collier LEG ASSEMBLER-SHOPPING INSPECTOR Primary Care Provider + Encounter Details Date Type Department Care Team (Late st Contact Info) Description 05/13/2023 Orders Only [facility] Internal Medicine - Family Medicine [address] [place] [phone] External, Scanning Provider Social History Tobacco Use [...] How often do you attend chur or buddhist services? More than 4 times [...] Recorded Do you need help finding a [facility] and/or a training program? [...] Description 08/29/2024 9:30 AM EDT Office Visit [facility] Physicians Plastic and Reconstructive Surgery [address] [facility] [address] [place] [phone] Shereen Smallwood PA-C [address] [facility], [facility] [address] [place] [address] 10/26/2024 8:30 AM EDT Telephone [facility], A Department of [place] [address] [facility] [address] [place] [address] Raymond Sepulveda MD [address] [place] [address], [address] [place] [address] documented as of this encounter [...] documented as of this encounter Care Teams Trashman Relationship Specialty Start Date End Date Amy Collier, LEG ASSEMBLER-SHOPPING INSPECTOR [address] [place] [address] PCP - General 11/28/16 documented as of this encounter
--- OUTSIDE RECORDS SUMMARY | 2024-08-25 14:05 | XMS_ITS | Encounter Summary ---
Author Organization [facility] Address [address] [place] [address] Care Team Providers Care Button Spindler Name Role Phone Randy Lu MD Primary Care Provider [phone] Encounter Details Date Type Department Care Team (Late Contact Info) Description 07/13/2023 Abstract [facility] [address] [address] Nahomy Watson LPN [address] [facility] Padmaja BENITEZ [facility] Social History Tobacco Use Types Packs/Day Years [...] 06/12/2025 10:00 AM EDT Office Visit [facility] [address] [place] [address] Evan Thompson [facility] [address] [place], [place] [id number] documented as of this encounter Visit Diagnoses Not on filedocumented in this encounter Care Teams Button Spindler Relationship Specialty Start Date End Date Randy Lu MD PCP - General Family Medicine 04/02/23 documented as of this encounter
--- OUTSIDE RECORDS SUMMARY | 2024-08-25 14:05 | XMS_ITS | Encounter Summary ---
Author Organization [facility] Sys [facility] Address [id number] [address] [place] [address] Care Team Providers Care Die Casting Machine Maintainer Name Role Phone Amy Collier JEWELRY BENCH WORKER-PROGRAMMER Primary Care Provider + Encounter Details Date Type Department Care Team (Late st Contact Info) Description 04/07/2023 Orders Only [facility] Internal Medicine - Family Medicine [address] [place] [address] External, Scanning Provider Social History [...] How often do you attend chur or gnosticist services? More than 4 times per year [...] Answer Date Recorded Total Score 0 03/07/2022 [facility] of Occupat ional Health - Occupational [...] [facility] [address] [place] [address] [address] [place] [address] Shereen Smallwood PANicolasC [address] [facility], [address] [place] [address] 10/26/2024 8:30 AM EDT Telephone Visit [facility] Gynecology Oncology, A Department of [facility] [address] [facility] [address] [place] [address] [place] [address] [place] [address], [address] [place] [address] documented as of this encounter Visit Diagnoses Not on filedocumented in this encounter Additional Health Concerns Assessment Noted Time PHQ-9 Depression Total Score: 0 03/07/19 23 11:14 AM EST documented as of this encounter Care Teams Die Casting Machine Maintainer Relationship Specialty Start Date End Date Amy Collier APRN-PROGRAMMER [address] [place] [address] PCP - General 11/28/16 documented as of this encounter
--- OUTSIDE RECORDS SUMMARY | 2024-08-25 14:05 | XMS_ITS | Encounter Summary ---
Author Organization [facility] Sys [facility] Address [facility]-[id number] [address] [place] [address] Care Team Providers Care It Sales Executive Name Role Phone Amy Collier HEEL GUMMER-ELEMENTARY SUPERVISOR Primary Care Provider + Encounter Details Date Type Department Care Team (Late st Contact Info) Description 04/27/2023 Orders Only [facility] Internal Medicine - Family Medicine [address] [place] [address] External, Scanning Provider Social History [...] How often do you attend chur or roman catholic services? More than 4 times per [...] Answer Date Recorded Total Score 0 03/07/2022 [facility] of Occupat ional Health [...] Recorded Do you need help finding a [facility] career center and/or a training [...] Description 08/29/2024 9:30 AM EDT Office Visit [facility] Physicians Plastic and Reconstructive Surgery [address] [facility] [address] [place] [address] Shereen Smallwood PA-C 5[address] [facility], [facility] [address] [place] [address] 10/26/2024 8:30 AM EDT [facility]phone [facility], A Department of [place] [address] [facility] [address] [place] [address] Raymond Sepulveda MD [address] [place] [address], [address] [place] [address] documented as of this encounter [...] documented as of this encounter Care Teams It Sales Executive Relationship Specialty Start Date End Date Amy Collier, HEEL GUMMER-ELEMENTARY SUPERVISOR [address] [place] [address] PCP - General 11/28/16 documented as of this encounter
--- OUTSIDE RECORDS SUMMARY | 2024-08-25 14:05 | XMS_ITS | Encounter Summary ---
Author Organization [employer] Sys [employer] Address [facility]-[id number] [address] [place] [address] Care Team Providers Care Neurological Physiotherapist Name Role Phone Amy Collier WATCH ENGINEER-RECONCILIATION COORDINATOR Primary Care Provider + Encounter Details Date Type Department Care Team (Late st Contact Info) Description 04/21/2023 Orders Only [facility] Surgical Oncology [address] [facility] [address] [place] [address] Ref Prov, [place] [address] Social History Tobacco Use Types Packs/Day Years [...] often do you attend chur ch or pentecostal services? More than 4 times per year [...] Answer Date Recorded Total Score 0 03/07/2022 [facility] of Occupat ional Health - [...] 08/29/2024 9:30 AM EDT Office Visit [facility] Physicians Plastic and Reconstructive Surgery [address] [facility] [address] [place] [phone] Shereen Smallwood PANicolasC [address] [facility], [address] [place] [address] 10/26/2024 8:30 AM EDT Telephone Visit [facility] Gynecology Oncology, A Department of [place] [address] [facility] [address] [place] [address] [place] [address] [place] [address], [address] [place] [address] documented as of this encounter [...] documented as of this encounter Care Teams Neurological Physiotherapist Relationship Specialty Start Date End Date Amy Collier APRN-RECONCILIATION COORDINATOR [address] [place] [address] PCP - General 11/28/16 documented as of this encounter
--- OUTSIDE RECORDS SUMMARY | 2024-08-25 14:05 | XMS_ITS | Encounter Summary ---
Author Organization [facility] Address [facility]-[id number] [address] [place] [address] Care Team Providers Care Landing Gear Mechanic Name Role Phone Amy Collier TELECOMMUNICATION LINES REPAIRER-INDUSTRIAL HIRE SALES ASSISTANT Primary Care Provider + Encounter Details Date Type Department Care Team (Late st Contact Info) Description 03/10/2023 Orders Only [facility] Internal Medicine - Family Medicine [address] [place] [address] External, Scanning Provider Social History [...] How often do you attend chur or pentecostalism services? More than 4 times [...] Do you need help finding a [facility] career center and/or a training program? [...] Description 08/29/2024 9:30 AM EDT Office Visit [facility] Physicians Plastic and Reconstructive Surgery [address] [facility] [address] [place] [address] Shereen Smallwood PA-C [address] [facility] [address] [place] [address] 10/26/2024 8:30 AM EDT [facility], A Department of [facility] [address] [facility] [address] [place] [address] Raymond Sepulveda MD [address] [place] [address], [address] [place] [address] documented as of this encounter [...] documented as of this encounter Care Teams Landing Gear Mechanic Relationship Specialty Start Date End Date Amy Collier, TELECOMMUNICATION LINES REPAIRER-INDUSTRIAL HIRE SALES ASSISTANT [address] [place] [address] PCP - General 11/28/16 documented as of this encounter
--- OUTSIDE RECORDS SUMMARY | 2024-08-25 14:05 | XMS_ITS | Encounter Summary ---
Author Organization [facility] tem Address [facility][id number] [address] [place] [address] Care Team Providers Care Bridge Opener Name Role Phone Amy Collier OLD TESTAMENT PROFESSOR-NOVELTY CANDY MAKER Primary Care Provider + Encounter Details Date Type Department Care Team (Late st Contact Info) Description 05/02/2024 Orders Only [facility] [address] [place] [address] Rossy Ng RN Social History Tobacco Use Types Packs/Day Years Used Date Smoking Tobacco: Never Passive Smoke Exposure: Past Smokeless Tobacco: Never Alcohol Use Standard Drinks/Week Comments Yes 0 (1 standard drink = 0.6 oz pur e alcohol) Socially [employer] Utilities Answer Date Recorded In the past [...] Answer Date Recorded Total Score 2 03/30/2024 [facility] of Occupat ional Health - Occupational [...] Description 08/29/2024 9:30 AM EDT Office Visit [facility] Physicians Plastic and Reconstructive Surgery [address] [place] [address] [address] [place] [address] Shereen Smallwood, PANicolasC [address] [place] [address], [facility] [address] [place] [address] 10/26/2024 8:30 AM EDT Telephone Visit [facility] Gynecology Oncology, A Department of [address] [place] [address] [place] [address] [place] [address], [address] [place], [place] [phone] documented as of this encounter Goals Goal [...] documented as of this encounter Care Teams Bridge Opener Relationship Specialty Start Date End Date Amy Collier, OLD TESTAMENT PROFESSOR-NOVELTY CANDY MAKER [facility] [place] [address] PCP - General 11/28/16 documented as of this encounter
--- OUTSIDE RECORDS SUMMARY | 2024-08-25 14:05 | XMS_ITS | Clinical Summary ---
Author Organization [facility] Address [address] [place] [address] Care Team Providers Care Hogshead Roller Name Role Phone NildaCarolina ROBER Unavailable [phone] Jessica Hope MD Unavailable [phone] Lynda Manuel CNP Primary Care Provider [phone] Shereen Smallwood PA-C Unavailable [phone] Radha Martinez RN Unavailable Allergies Active Allergy [...] Care Team Description 08/10/2024 Results Follow-Up Hematology/Oncology [address] [place] [address] Aurelia Oneill MD 07/27/2024 Patient Msg Hematology/Oncology [address] [place] [address] Provider, Ccf Xeloda restart 07/22/[address] 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 [address] [place] [address] Jessica Hope MD Person encountering health services [...] is lower risk 7 07/21/2024 Data from: https://www.neighborhoodatlas.medicine.regional [facility].edu/. Last address used for calculation [...] EDT) Case Report Surgical Pathology Report Case: [id number] Authorizing Provider: Aurelia Oneill MD Collected: 07/22/2024 03:52 PM Ordering Location: [facility] Received: 07/22/2024 03:51 PM [facility] Pathologist: Michael López MD Specimen: Slide(s), 11 SLIDES [id number] 08/09/2024 9:01 AM EDT [facility] FINAL DIAGNOSIS Liver mass, biopsy: - Adenocarcinoma, compatible with breast origin. 08/09/2024 9:01 AM EDT [facility] at 1337 EDT Diagnosis Comment Tumor cells are positive for CK7 and GATA3, with weak expression for ER. Negative stains include CK19, UT, and CDX2. 08/09/2024 9:01 AM EDT [facility] Performing Lab Diagnostic interpretation performed at: [facility], [address] [place] [address], [facility] [place] [address] CLIA# [id number] Assistant Finance Director: Derick Meadows MD 08/09/2024 9:01 AM EDT [facility] Addendum Breast biomarkers (ER, PgR, and HER2) performed at the outside institution are available for review at the [facility] and demonstrate the tumor cells to be positive for ER (30% nuclear staining of tumor cells with moderate staining intensity), negative for UT (<1% nuclear staining of tumor cells), and negative for HER2 (score of 1+). [facility] 08/09/24 08/09/2024 9:01 AM EDT [facility] Addendum electronically signed by Kev Kang MD on 08/09/2024 at 0901 EDT Disclaimer Laboratory Developed Test (LDT) Disclaimer: Performance characteristics of immunohistochemica l, immunofluorescent, and chromogenic in-situ hybridization tests have been determined by the performing laboratory within [facility]'s [facility] Pathology and Laboratory Medicine Department ([facility], [facility], [facility], [facility], [facility], [facility], or [facility]) in a manner consistent with CLIA requirements. One or more of these tests may not have been cleared or approved by the FDA. RT-PLM is regulated under CLIA as qualified to perform high-complexity testing. These tests are used for clinical purposes. These should not be regarded as investigational or for research. Positive and negative controls stain appropriately. 08/09/2024 9:01 AM EDT [facility] Blocks or Slides MICROSCOPE SLIDE / Unknown 07/22/2024 3:52 PM EDT 07/22/2024 3:51 PM EDT us Aurelia Oneill MD SURGICAL PATHOLOGY Edited Result - Final [facility] [address] [facility] Desk [address] [address], * PHOTO BREAST LEFT (07/19/2024 9:08 AM [...] PM EDT Images were obtained outside of [facility] Procedure Note Provider, [facility] [place] - 07/04/2024 Images were obtained outside of [facility] Cc Provider RADIOLOGY Final Result * PT-PET tumor subq tx strat sb-mt IMPORT (06/03/2024) Anatomical Region Laterality Modality Other 06/03/2024 Narrative 07/22/2024 5:49 AM EDT Images were obtained outside of [facility] Procedure Note Provider, [facility] [place] - 07/22/2024 Images were obtained outside of [facility] Provider RADIOLOGY Final Result * BONE MARROW REFERENCE LAB CONSULT (05/31/2024 9:19 PM EDT) Case Report Bone Marrow Pathology Report Case: [id number] Authorizing Provider: Jessica Hope MD Collected: 05/31/2024 09:19 PM Ordering Location: [facility] Received: 05/31/2024 09:20 PM [facility] Pathologist: Deidre Avelar MD, PhD Specimen: Slide(s), 13 SLIDES [id number] 06/12/2024 11:59 AM EDT [facility] FINAL DIAGNOSIS A. Outside materials received from [facility], [place], [place] (External ID [id number], 05/12/2024) Bone marrow aspirate smears, touch imprints, core biopsy and clot section: -Cellular bone marrow with maturing trilineage hematopoiesis and increased ring sideroblasts. -Increased storage iron. -See comment. Peripheral blood smear: -Pancytopenia [facility] June 11, 2024 06/12/2024 11:59 AM EDT [facility] at 1159 EDT Diagnosis Comment Thank [...] Linezolid is associated with ring sideroblasts (PMID: [id number]) and may cause bone marrow suppression. Tedezolid is in the same class, although may be associated with less bone marrow suppression (PMID: [id number]). Overall, given the absence of evidence of clonal hematopoeisis, interval resampling following completion of the the antibiotic course may be helpful to further clarify, if cytopenias persist. Please do not hesitate to contact the Hematopathology Consult Service at [phone] for any questions or if additional follow-up information becomes available. 06/12/2024 11:59 AM EDT [facility] Microscopic Description PERIPHERAL BLOOD: CBC (05/12/2024) [...] lobation. Other: Additional stains are performed at [facility] to further clarify the morphologic findings. [...] Performed. 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 06/12/2024 11:59 AM EDT [facility] Clinical History CONSULT REQUESTED 06/12/2024 11:59 AM EDT [facility] Performing Lab Diagnostic interpretation performed at: [facility], [address] [place] [address], [place] [address] CLIA# [id number] Assistant Finance Director: Derick Meadows MD 06/12/2024 11:59 AM EDT [facility] Disclaimer Laboratory Developed Test (LDT) Disclaimer: Performance characteristics of immunohistochemica l, immunofluorescent, and chromogenic in-situ hybridization tests have been determined by the performing laboratory within [facility]'s [facility] Pathology and Laboratory Medicine Department ([facility], [facility], [facility], [facility], [facility], [facility], or [facility]) in a manner consistent with CLIA requirements. One or more of these tests may not have been cleared or approved by the FDA. RT-PLM is regulated under CLIA as qualified to perform high-complexity testing. These tests are used for clinical purposes. These should not be regarded as investigational or for research. Positive and negative controls stain appropriately. 06/12/2024 11:59 AM EDT [facility] Blocks or Slides MICROSCOPE SLIDE / Unknown 05/31/2024 9:19 PM EDT 05/31/2024 9:20 PM EDT us Jessica Hope MD SURGICAL PATHOLOGY Final Resul t [facility] [address] [place] [address], from Last 3 Months Insurance [address] [place] [address] [facility] COMM[employer]AN MEDICAID [facility] Care Teams Hogshead Roller Relationship Specialty Start Date End Date Lynda Manuel CNP [address] [place] [address] PCP - General Family Medicine 06/14/24 Carolina Munguia APRN [address] [facility] [address] [facility] [place] [address] 12/04/23 Jessica Hope MD [address] [place] [address] Referring Hematology/Oncology 06/14/24 Shereen Smallwood PANicolasC [address] [facility] [address] [place] [address] [facility] Referring Orthopedics 06/15/24 [place] [address] [place] [address] Specialty Barrel Painter Hematology/Oncology 07/31/24
--- OUTSIDE RECORDS SUMMARY | 2024-08-25 14:05 | XMS_ITS | Encounter Summary ---
Author Organization [employer] Address [facility] [id number] [address] [place] [address] Care Team Providers Care Repairer Art Objects Name Role Phone Amy Collier SAFETY GROOVING MACHINE OPERATOR-GOVERNMENT INSTRUCTOR Primary Care Provider + Encounter Details Date Type Department Care Team (Late st Contact Info) Description 10/15/2023 Orders Only [facility] Surgical Oncology [address] [facility] [address] [place] [address] Ref Prov, [place] [address] Social History Tobacco Use Types Packs/Day Years [...] often do you attend chur ch or sikhism services? More than 4 times per year [...] Answer Date Recorded Total Score 0 03/07/2022 [facility] of Occupat ional Health - [...] Recorded Do you need help finding a [facility] career center and/or a training [...] [facility] Physicians Plastic and Reconstructive Surgery [address] [facility] [address] [place] [phone] Shereen Smallwood PANicolasC [address] [facility] [address] [place] [address] 10/26/2024 8:30 AM EDT Telephone Visit [facility] Gynecology Oncology, A Department of [place] [address] [facility] [address] [place] [address] [place] [address] [place] [address], [address] [place] [address] documented as of this encounter Procedures Procedure Name Priority Date/Time Associated Diagnosis Comments MULTIPLE LABS Routine 10/15/2023 8:06 AM EDT documented in this encounter Results * Multiple labs (10/15/2023 8:06 AM EDT) us Not In System Ref Prov PA IMAGING Final Res ult MANUALLY TRANSCRIBED RESULTS documented in this encounter Visit Diagnoses Not on filedocumented in this encounter Additional Health Concerns Assessment Noted Time PHQ-9 Depression Total Score: 0 03/07/19 23 11:14 AM EST documented as of this encounter Care Teams Repairer Art Objects Relationship Specialty Start Date End Date Amy Collier APRN-GOVERNMENT INSTRUCTOR [address] [place] [address] PCP - General 11/28/16 documented as of this encounter
--- OUTSIDE RECORDS SUMMARY | 2024-08-25 14:05 | XMS_ITS | Encounter Summary ---
Author [facility] Address [facility] [id number] [address] [place] [address] Care Team Providers Care Flask Handler Name Role Phone Amy Collier FITNESS CLUB MANAGER-TECHNICAL WRITING LEAD/MGR Primary Care Provider + Encounter Details Date Type Department Care Team (Late st Contact Info) Description 07/14/2023 Orders Only [facility] Internal Medicine - Family Medicine [address] [place] [address] External, Scanning Provider Social History [...] Answer Date Recorded Total Score 0 03/07/2022 [facility] of Occupat ional Health [...] Recorded Do you need help finding a [facility] career center and/or a training program? [...] AM EDT [facility] [address] [facility] [address] [place] [phone] Shereen Smallwood PA-C [address] [facility] [address] [place] [address] 10/26/2024 8:30 AM EDT [facility], A Department of [facility] [address] [facility] [address] [place] [address] Raymond Sepulveda MD [address] [place] [address], [address] [place] [address] documented as of this encounter [...] documented as of this encounter Care Teams Flask Handler Relationship Specialty Start Date End Date Amy Collier, FITNESS CLUB MANAGER-TECHNICAL WRITING LEAD/MGR [address] [place] [address] PCP - General 11/28/16 documented as of this encounter
--- OUTSIDE RECORDS SUMMARY | 2024-08-25 14:06 | XMS_ITS | Encounter Summary ---
Author Organization [employer] Address [facility] [id number] [address] [place] [address] Care Team Providers Care Wound Care Nurse Name Role Phone Amy Collier CHART CHANGER-BLOOD BANK TECHNOLOGIST Primary Care Provider + Encounter Details Date Type Department Care Team (Late st Contact Info) Description 04/27/2024 Telephone [facility] [address] [facility] [address] [place] [address] Viviane Lopez CMA Social History Tobacco Use Types Packs/Day Years Used Date Smoking Tobacco: Never Passive Smoke Exposure: Past Smokeless Tobacco: Never Alcohol Use Standard Drinks/Week Comments Yes 0 (1 standard drink = 0.6 oz pur e alcohol) Socially [facility] Utilities Answer Date Recorded In the past 12 months has [employer] electric, gas, oil, or water [employer] threatened to shut off services in your [...] often do you attend chur ch or congregational services? More than 4 times per year [...] Answer Date Recorded Total Score 2 03/30/2024 [facility] [place] of Occupat ional Health - Occupational Stress [...] EDT Office Visit [facility] Physicians Plastic and Reconstructive Surgery [address] [place] [address] Shereen Smallwood PA-C [address] [place] [address] 10/26/2024 8:30 AM EDT Telephone Visit [facility], A Department of [facility] [address] [place] [address] [place] [address] [place] [address], [address] [place] [address] documented as of this encounter Visit Diagnoses Not on filedocumented in this encounter Additional Health Concerns Assessment Noted Time PHQ-9 Depression Total Score: 2 03/30/19 25 3:58 PM EST documented as of this encounter Care Teams Wound Care Nurse Relationship Specialty Start Date End Date Amy Collier, CHART CHANGER-BLOOD BANK TECHNOLOGIST [address] [place] [address] PCP - General 11/28/16 documented as of this encounter
--- OUTSIDE RECORDS SUMMARY | 2024-08-25 14:06 | XMS_ITS | Encounter Summary ---
Author Organization [facility] tem Address [facility] [id number] [address] [place] [address] Care Team Providers Care Pv Design And Installation Technician Name Role Phone Amy Collier OCC THERAPY ASST-QUALITY ASSURANCE ASSESSOR Primary Care Provider + Encounter Details Date Type Department Care Team (Late st Contact Info) Description 04/29/2024 Orders Only [facility] Division of [facility] - 8 Med-Surg/Ortho [address] [place] [phone] Lynda Morillo RN Social History Tobacco Use Types Packs/Day Years Used Date Smoking Tobacco: Never Passive Smoke Exposure: Past Smokeless Tobacco: Never Alcohol Use Standard Drinks/Week Comments Yes 0 (1 standard drink = 0.6 oz pur e alcohol) Socially [employer] Utilities Answer Date Recorded In the past [...] Score 2 03/30/2024 [facility] [place] of Occupat ional Health - Occupational Stress [...] Recorded Do you need help finding a [facility] and/or a training program? [...] 9:30 AM EDT [facility] [address] [facility] [address] [place] [address] Shereen Smallwood, PA-C [address], [facility] [address] [place] [address] 10/26/2024 8:30 AM EDT [facility]phone [facility], A Department of [facility] [address] [facility] [address] [place] [address] [place] [address] [place] [address], [address] [place], [place] [id number] documented as of this encounter Visit Diagnoses Not on filedocumented in this encounter Additional Health Concerns Assessment Noted Time PHQ-9 Depression Total Score: 2 03/30/19 25 3:58 PM EST documented as of this encounter Care Teams Pv Design And Installation Technician Relationship Specialty Start Date End Date Amy Collier, ROBER-QUALITY ASSURANCE ASSESSOR [address] [place] [address] PCP - General 11/28/16 documented as of this encounter
--- OUTSIDE RECORDS SUMMARY | 2024-08-25 14:06 | XMS_ITS | Encounter Summary ---
Author Organization [employer] Address [facility] [id number] [address] [place] [address] Care Team Providers Care Senior Health Educator Name Role Phone Amy Collier APPLICATIONS PROGRAMMER ANALYST-SWAGER OPERATOR Primary Care Provider + Encounter Details Date Type Department Care Team (Late st Contact Info) Description 04/07/2024 Telephone [facility] [address] [facility] [address] [place] [address] Viviane Lopez CMA Social History Tobacco Use Types Packs/Day Years Used Date Smoking Tobacco: Never Passive Smoke Exposure: Past Smokeless Tobacco: Never Alcohol Use Standard Drinks/Week Comments Yes 0 (1 standard drink = 0.6 oz pur e alcohol) Socially A[employer] Utilities Answer Date Recorded In the past 12 months has [employer] electric, gas, oil, or water [employer] threatened to shut off services in your [...] Answer Date Recorded Total Score 2 03/30/2024 [facility] [place] of Occupat ional Health - Occupational Stress [...] Description 08/29/2024 9:30 AM EDT Office Visit [facility] Plastic and Reconstructive Surgery [facility] [address] [facility] [address] [place] [address] Shereen Smallwood PA-C [address], [facility] [address] [place] [address] 10/26/2024 8:30 AM EDT Telephone Visit [facility] Gynecology Oncology, A Department of [place] [address] [address] [facility] [address] [place] [address] Raymond Sepulveda MD [address] [facility], [address] [place] [address] documented as of this encounter Visit Diagnoses Not on filedocumented in this encounter Additional Health Concerns Assessment Noted Time PHQ-9 Depression Total Score: 2 03/30/19 25 3:58 PM EST documented as of this encounter Care Teams Senior Health Educator Relationship Specialty Start Date End Date Amy Collier APRN-SWAGER OPERATOR [address] [place] [address] PCP - General 11/28/16 documented as of this encounter
--- OUTSIDE RECORDS SUMMARY | 2024-08-25 14:06 | XMS_ITS | Clinical Summary ---
Author Organization [employer] tem Address [id number] [address] [place] [address] Care Team Providers Care Press Operator Apprentice Name Role Phone Amy Collier TRANSFORMER SHOP SUPERVISOR-ESCALATION ENGINEER Primary Care Provider + Allergies Active Allergy Reactions Criticality Noted Date Comments Adhesive Rash Low 11/27/2021 Ceftaroline Fosamil Fever Low 06/11/2024 Daptomycin Flushing Low 11/28/2023 Doxycycline Rash Low 12/09/2023 Meperidine Facial Swelling Medium 04/13/2021 Tigecycline Rash,Vomiting Low 12/07/2023 Vancomycin Other (See Comments) Medium 03/21/2024 Acute Kidney Injury Medications cyclobenzapri ne (FLEXERIL) 10 mg tablet TAKE ONE TABLET BY MOUTH ONCE DAILY IN THE EVENING 30 tablet 11 04/28/19 24 Active Additional Information Patient not taking.Reported on 08/12/2024 ELIQUIS 5 mg tabletIndicat ions:deep venous thrombosis Take 1 tablet (5 mg total) by mouth in the morning and 1 tablet (5 mg total) before bedtime. Indications: blood clot in a deep vein of the extremities. Blood clot left leg 08/2023. 09/18/19 24 Active magnesium oxide 400 mg magnesium tabletIndicat ions:hypomagn esemia Take 400 mg by mouth in the morning. Indications: low amount of magnesium in the blood. Active potassium chloride (KLOR-CON ORAL)Indicati ons:hypokalem ia Take 20 mEq by mouth in the morning and 20 mEq before bedtime. Indications: low amount of potassium in the blood. 08/05/19 24 Active cyanocobalami n 1000 MCG tablet Take 1 tablet (1,000 mcg total) by mouth in the morning. 90 tablet 3 10/10/20 24 Active CLOFAZIMINE, BULK, MISC Take 100 mg by mouth in the morning. Capsule for mycobacterial infection. Active pyridoxine, vitamin B6, (B-6) 50 mg tablet Take 1 tablet (50 mg total) by mouth in the morning. 03/28/19 25 Active gabapentin (NEURONTIN) 300 mg capsuleIndica tions:neuropa thic pain Take 1 capsule (300 mg total) by mouth in the morning and at bedtime Indications: neuropathic pain. Active prochlorperaz ine (COMPAZINE) 10 mg tablet 04/25/19 25 Active hydrOXYzine (ATARAX) 25 mg tablet Take 1 tablet (25 mg total) by mouth 3 (three) times a day as needed for itching. 60 tablet 1 05/13/19 25 Active Additional Information Patient not taking.Reported on 08/12/2024 omadacycline 150 mg tablet Take 300 mg by mouth in the morning. Active naloxone (NARCAN) 4 mg/actuation spray,non-aer osol nasal spray Administer 1 spray (4 mg total) into alternating nostrils as needed for opioid reversal. 1 each 06/16/19 25 Active carvediloL (COREG) 12.5 mg tablet Take 1 tablet (12.5 mg total) by mouth in the morning and 1 tablet (12.5 mg total) before bedtime. 180 tablet 1 07/15/19 25 Active amikacin (AMIKIN) 500 mg/2 mL injection [...] and in the evening. Take with meals. 08/11/19 25 Active capecitabine (XELODA) 500 mg chemo tablet Take 3 tablets by mouth 2 (two) times a day 08/04/19 25 Active imipenem-cila statin (PRIMAXIN) 500 mg injection 08/05/19 25 Active acetic acid 0.25 % irrigation Irrigate with 1,000 mL as directed in the morning. BID dressing changes with acetic acid dampened kerlix, lay into wound, cover with ABD pads, secure with ATTILA. 500 mL 5 08/19/19 25 Active spironolacton e (ALDACTONE) 25 mg tablet Take 0.5 tablets (12.5 mg total) by mouth in the morning. 45 tablet 1 08/26/19 25 Active anastrozole (ARIMIDEX) 1 mg chemo tablet Take 1 tablet by mouth daily Breast cancer 01/08/20 24 2024 Discontinued(S top Taking at Discharge) VERZENIO 150 mg chemo tabletIndicat ions:Breast wound, left, sequela Take 1 tablet by mouth 2 (two) times a day Holding currently as of 05/12/2024 05/13/192024 Discontinued(S top Taking at Discharge) imipenem-cila statin 1,000 mg in sodium chloride 0.9 % 250 mL IVPB Infuse 1,000 mg into a venous catheter every 12 (twelve) hours for 90 days. 05/13/19 25 2024 spironolacton e (ALDACTONE) 25 mg tablet Take 1 tablet (25 mg total) by mouth in the morning. 90 tablet 1 07/15/19 25 2024 Discontinued diazePAM (VALIUM) 5 mg tabletIndicat ions:Complica tena wound infection,Candis ast wound, left, sequela Take 1 tablet (5 mg total) by mouth every 6 (six) hours as needed for anxiety or muscle spasms for up to 5 days. 20 tablet 07/30/19 25 2024 oxyCODONE (ROXICODONE) 5 mg immediate release tabletIndicat ions:Complica tena wound infection,Candis ast wound, left, sequela Take 1 tablet (5 mg total) by mouth every 4 (four) hours as needed for pain for up to 7 days. Max Daily Amount: 30 mg 28 tablet 07/30/19 25 2024 Active Problems Problem Noted Date Diagnosed Date [...] Cancer Staging:Clinical:Stage IIIC(cT2, cN3, cM0, G3, ER+, ME-, HER2-) - [...] Encounters Date Type Department Care Team Description 08/25/2024 Orders Only [facility] Internal [facility] - Family Medicine [address] [place] [address] Amy Collier APRN-ESCALATION ENGINEER 08/24/2024 Telephone [facility] - Family Medicine [address] [place] [address] Kodi Monteiro [facility] 08/22/2024 Telephone [facility] [address] [place] [address] Viviane Lopez CMA 08/18/2024 3:30 PM EDT Office Visit [facility] [address] [place] [address] Shereen Smallwood PA-C 08/18/2024 Travel 08/12/2024 10:21 AM EDT Anesthesia Event [facility] Surgery [address] [place] [address] Vaibhav Nicholson MD Peeps Rusty, [facility] 08/12/2024 9:10 AM EDT - 08/12/2024 10:40 AM EDT Surgery [facility] Surgery [address] [place] [address] Jhon Rosado MD DEBRIDEMENT LEFT CHEST WALL WOUND 08/12/2024 6:02 AM EDT - 08/12/2024 12:17 PM EDT Hospital Encounter [facility] Surgery [address] [place] [address] Jhon Rosado MD Discharge Disposition: Home 08/12/2024 Telephone [facility] [address] [facility] [address] [facility] [place] [address] Jhon Rosado MD 08/10/2024 3:30 PM EDT Office Visit [facility] - Family Medicine [address] [facility] [address] [address] Dhruv Ortiz DO Mycobacterium abscessus infection (Primary Dx); Malignant neoplasm of lower-inner quadrant of right breast of female, estrogen receptor positive ([facility]) 08/10/2024 10:00 AM EDT Support Visit [facility] On [address] [address] 08/09/2024 Telephone [facility] [address] [place] [address] Jhon Rosado MD 08/08/2024 9:00 AM EDT Office Visit [facility] [address] [facility] [place] [address] Shereen Smallwood PA-C 08/08/2024 Travel 08/04/2024 Orders Only [facility] [address] [facility] [address] [place] [address] Shereen Smallwood PA-C 08/03/2024 9:00 AM EDT Office Visit [facility] [address] [place] [address] Shereen Smallwood PA-C 08/03/2024 Travel 08/02/2024 Telephone [facility] [address] [place] [address] Joelle Betancourt, data reporting analyst Of Care 08/02/2024 Telephone [facility] - Family Medicine [address] [facility] [address] [place] [address] Mela Berrios RN 08/02/2024 Telephone [facility] [address] [facility] [address] [place] [address] Viviane Lopez CMA 07/27/2024 2:45 PM EDT - 07/27/2024 4:15 PM EDT Surgery [facility] - Surgery [address] [place] [address] Jhon Rosado MD DEBRIDEMENT BREAST 07/27/2024 2:38 PM EDT Anesthesia Event [facility] - Surgery [address] [place] [address] Sonal Roberts MD 07/27/2024 12:58 PM EDT - 07/29/2024 3:31 PM EDT Hospital Encounter [facility] - 7 Oncology/Stroke [address] [place] [address] Jhon Rosado MD Complicated wound infection (Primary Dx); Breast wound, left, sequela Discharge Disposition: Home 07/27/2024 8:30 AM EDT Telephone Visit [facility] Gynecology Oncology, A Department of [facility] [address] [facility] [address] [place] [address] Raymond Sepulveda MD Pelvic mass in female (Primary Dx) 07/27/2024 Travel 07/18/2024 Telephone [facility] [address] [facility] [address] [place] [address] Jhon Rosado MD 07/15/2024 9:00 AM EDT Support Visit [facility] On [address] [address] 07/14/2024 8:40 AM EDT Office Visit [facility] Internal [facility] - Family Medicine [address] [place] [address] Amy Collier, TRANSFORMER SHOP SUPERVISOR-ESCALATION ENGINEER Malignant neoplasm of lower-inner quadrant of right breast of female, estrogen receptor positive (CMS-HCC) (Primary Dx); Mycobacterium abscessus infection; Essential hypertension; Acute deep vein thrombosis (DVT) of calf muscle vein of left lower extremity (CMS-HCC); S/P right heart catheterization 07/13/2024 Telephone [facility] [address] [facility] [place] [address] Jhon Rosado MD 07/11/2024 2:00 PM EDT Office Visit [facility] [address] [facility] [address] [place] [address] Marisela Davila, TRANSFORMER SHOP SUPERVISOR-ESCALATION ENGINEER Encounter for postoperative care (Primary Dx); Breast wound, left, sequela; S/P breast reconstruction, bilateral; Mycobacterium abscessus infection 07/11/2024 12:24 PM EDT - 07/11/2024 4:12 PM EDT Hospital Encounter [facility] - Interventional Radiology [address] [place] [address] Guillaume Curiel MD Begeman, Garett A, MD Liver lesion Discharge Disposition: Home 07/11/2024 Telephone [facility] [address] [facility] [address] [place] [address] Marisela Davila TRANSFORMER SHOP SUPERVISOR-ESCALATION ENGINEER 07/11/2024 Travel 07/06/2024 10:30 AM EDT Office Visit [facility] [address] [facility] [address] [place] [address] Marisela Davila, TRANSFORMER SHOP SUPERVISOR-ESCALATION ENGINEER Encounter for postoperative care (Primary Dx); Seroma of breast; Breast wound, left, sequela; S/P breast reconstruction, bilateral 07/06/2024 Orders Only [facility] - Interventional Radiology [address] [place] [address] Guillaume Curiel MD Liver lesion (Primary Dx) 07/06/2024 Travel 06/29/2024 2:00 PM EDT Office Visit [facility] [address] [facility] [address] [place] [address] Marisela Davila TRANSFORMER SHOP SUPERVISOR-ESCALATION ENGINEER Encounter for postoperative care (Primary Dx); Seroma of breast; Breast wound, left, sequela; Mycobacterium abscessus infection; S/P breast reconstruction, bilateral 06/29/2024 8:30 AM EDT Telephone Visit [facility] Gynecology Oncology, A Department of [facility] [address] [facility] [address] [place] [address] Raymond Sepulveda MD Pelvic mass in female (Primary Dx) 06/29/2024 Travel 06/24/2024 Telephone [facility] [address] [facility] [address] [place] [address] Viviane Lopez CMA 06/23/2024 Telephone [facility] [address] [place] [address] Viviane Lopez CMA 06/22/2024 3:00 PM EDT Office Visit [facility] [address] [facility] [place] [address] Marisela Davila, TRANSFORMER SHOP SUPERVISOR-ESCALATION ENGINEER Encounter for postoperative care (Primary Dx); Breast wound, left, sequela 06/22/2024 Travel 06/20/2024 Telephone [facility] [address] [facility] [place] [address] Viviane Lopez, [facility] 06/20/2024 Telephone [facility] - Family Medicine [address] [place] [address] Kodi Monteiro, [facility] 06/16/2024 Telephone [facility] - Family Medicine [address] [place] [address] Noreen Bro RN Care Navigation 06/16/2024 Orders Only [facility] - Interventional Radiology [address] [facility] [place] [address] Guillaume Curiel MD Liver lesion (Primary Dx) 06/13/2024 5:20 PM EDT Anesthesia Event [facility] - Surgery [address] [facility] [address] Emmanuelle Lara MD Wilcox, Brandon L, TRANSFORMER SHOP SUPERVISOR-FRYLINE ATTENDANT 06/13/2024 4:45 PM EDT - 06/13/2024 7:25 PM EDT Surgery [facility] Surgery [address] [place] [address] Jhon Rosado MD INCISION DRAINAGE CHEST WALL INFECTION 06/13/2024 Orders Only [facility] [address] [place] [address] Transcribe, Orders Support User Pain (Primary Dx) 06/13/2024 Orders Only [facility] - Family Medicine [address] [place] [address] Ref Prov, Not In System 06/12/2024 Orders Only [facility] [address] [place] [address] Transcribe, Orders Support User Pain (Primary Dx) 06/10/2024 11:16 PM EDT - 06/15/2024 6:22 PM EDT Hospital Encounter [facility] - 7 Oncology/Stroke [address] [place] [address] Meme Baumann, Luna Jaeger MD Wang, Li, MD Pothireddy, Ravi P, MD Complicated wound infection (Primary Dx); Breast wound, left, sequela; S/P breast reconstruction, left; Mycobacterium abscessus infection Discharge Disposition: Home 06/10/2024 Travel 06/10/2024 Telephone [facility] Call Center [address] [place] [address] Lewis Kendra Breast Problem 06/08/2024 11:30 AM EDT Office Visit [facility] Surgery [address] [place] [address] Mariann Lombardo PA-C Encounter for postoperative care (Primary Dx); Breast wound, left, sequela; Erythema of breast; Seroma of breast; Mycobacterium abscessus infection; S/P breast reconstruction, bilateral; Acquired absence of breast, bilateral; History of breast cancer 06/08/2024 8:30 AM EDT Telephone Visit [facility] Gynecology Oncology, A Department of [facility] [address] [place] [address] Raymond Sepulveda MD Malignant neoplasm of lower-inner quadrant of right breast of female, estrogen receptor positive (CMS-HCC) (Primary Dx); Pelvic mass in female 06/08/2024 Travel 06/03/2024 11:05 AM EDT [facility] [place] [address] Pain 06/03/2024 Orders Only [facility] - Family Medicine [address] [place] [address] Ref Prov, Not In System 06/01/2024 9:00 AM EDT Office Visit [facility] [address] [place] [address] Marisela Davila, TRANSFORMER SHOP SUPERVISOR-ESCALATION ENGINEER Encounter for postoperative care (Primary Dx); Breast wound, left, sequela; Seroma of breast; Mycobacterium abscessus infection; S/P breast reconstruction, bilateral 06/01/2024 Telephone [facility] [address] [facility] [address] [place] [address] Marisela Davila, TRANSFORMER SHOP SUPERVISOR-ESCALATION ENGINEER 06/01/2024 Travel 05/27/2024 Orders Only [facility] - Family Medicine [address] [place] [address] Ref Prov, Not In System 05/25/2024 Telephone [facility] [address] [facility] [address] Shereen Smallwood PA-C from Last 3 Months Immunizations Immunization Administration [...] drink = 0.6 oz pur e alcohol) [facility] Utilities Answer Date Recorded In the past 12 months has e [employer], gas, oil, or water [employer] threatened to shut off services in your [...] Answer Date Recorded Total Score 0 08/10/2024 [facility] of Occupat ional Health - Occupational Stress [...] Recorded Do you need help finding a [employer] [facility] career center and/or a training [...] [facility] [address] [facility] [address] [place] [address] Shereen Smallwood, PANicolasC [address], [facility] [address] [place] [address] 10/26/2024 8:30 AM EDT Telephone Visit [facility] Gynecology Oncology, A Department of [facility] [address] [facility] [address] [place] [address] [place] [address] [place] [address], [address] [place], [place] [id number] Health Maintenance Due Date Last Done Comments [...] [employer] Implanted Type Area Kiln Charger Device Identifier Shelf Expiration Date Model / Serial / Lot Golf Ball Trimmer Tiss [id number] Brst 480-575cc Txtr Intgr Port Allox2 - [id number] - [id number] Implanted:Qty: 1 on 10/28/2023 by Jhon Rosado MD at [facility] Other Implant Left: Breast [employer] 11/11/2025 ALLOX2-FH 14E / [id number] / NA Golf Ball Trimmer Tiss [id number] Brst 480-575cc Txtr Intgr Port Allox2 - [id number] - [id number] Implanted:Qty: 1 on 10/28/2023 by Christy He MD at [facility] Other Implant Right: Breast [employer] 11/20/2025 ALLOX2-FH 14E / [id number] / NA Procedures Procedure Name Priority [...] Resistant Pseudomonas aeruginosa(A) 08/16/2024 9:32 AM EDT [facility] GRAM STAIN 0 White Blood Cells/LPF 08/16/2024 9:32 AM EDT [facility] GRAM STAIN 0 Squamous Epithelial Cells/LPF 08/16/2024 9:32 AM EDT [facility] GRAM STAIN No organisms seen 08/16/2024 9:32 AM EDT [facility] Tissue (Chest Wall, Left) 08/12/2024 10:40 AM EDT 08/12/2024 11:31 AM EDT Comment:Pre-op diagnosis: LEFT AXILLA WOUND Narrative [facility] - 08/16/2024 9:32 [...] KPC (CARBAPENEMASE) Negative Carbapenem Resistant Pseudomonas aeruginosa [id number] (CARBAPENEMASE) Negative Carbapenem Resistant Pseudomonas aeruginosa VIM (CARBAPENEMASE) Negative Carbapenem Resistant Pseudomonas aeruginosa IMP (CARBAPENEMASE) Negative Carbapenem Resistant Pseudomonas aeruginosa NDM (CARBAPENEMASE) Negative Comment:Carbapenem Resistant Organism (COMMUNICATION MANAGER). The CARBA5 test only detects the 5 most prevalent carbapenemase producing mechanisms in the [place] Other carbapenemase producing mechanisms not detected by this test are rare. Jhon Rosado MD MICROBIOLOGY - GENERA L ORDERABLES Final Result [facility] [address] [place] [address], * Anaerobic culture (08/12/2024 10:40 AM EDT) Only the most recent of2 resultswithin the time period is included. CULTURE RESULTS NO GROWTH 5 DAYS 08/17/2024 7:01 AM EDT [facility] Tissue (Chest Wall, Left) 08/12/2024 10:40 AM EDT 08/12/2024 11:31 AM EDT Comment:Pre-op diagnosis: LEFT AXILLA WOUND Jhon Rosado MD MICROBIOLOGY - GENERA L ORDERABLES Final Result [facility] [address] [place] [address], [place] [phone] * Send Out Test (08/11/2024 3:03 PM [...] Allan Lui DO LAB ORDERABLES Final Result Performing Organization Address City/[facility]/ZIP Co de Phone Number GENERIC RESULTING AGENCY * External Lab Orders / Results (08/08/2024 3:30 PM EDT) Only the most recent of2 resultswithin the time period is included. Aurelia Oneill MD LAB ORDERABLES Final Result * [facility] GENERIC ORDER (07/29/2024 2:53 PM EDT) TEST RESULT SEE COMMENTS 08/01/2024 4:29 PM EDT [facility]out Comment: Test Result Flag Unit RefValue Amikacin, Peak, S 20.1 mcg/mL 20.0 - 35.0 Test Performed by: [facility] [address] [place] [address] [employer]cher: Colten Sosa Ph.D.; CLIA# [id number] Blood 07/29/2024 2:53 PM EDT 07/29/2024 3:09 PM EDT Jhon Rosado MD LAB BLOOD ORDERABLES Final Result [facility] [address] [place] [address], * Amikacin peak post (07/29/2024 2:53 PM EDT) [facility] LOOK Sent to Reference [facility]. 07/29/2024 6:15 PM EDT [facility] Blood 07/29/2024 2:53 PM EDT 07/29/2024 3:09 PM EDT Jhon Rosado MD LAB BLOOD ORDERABLES Final Result Performing Organization Address City/[facility]/ZIP Co de Phone Number [facility] [address] [place] [address], [place] [phone] * (ABNORMAL) CBC auto differential (07/29/2024 8:40 AM EDT) Only the most recent of8 resultswithin the time period is included. [facility] WBC 5.9 4 - 11 x10E9/L 07/29/2024 9:15 AM [facility] RBC Count 3.02(L) 3.8 - 5.2 X10E12/L 07/29/2024 9:15 AM [facility] Hemoglobin 9.9(L) 11.7 - 15.5 g/dL 07/29/2024 9:15 AM [facility] Hematocrit 27.6(L) 35 - 47 % 07/29/2024 9:15 AM [facility] MCV 92 80 - 100 fL 07/29/2024 9:15 AM [facility] MCH 32.8 27 - 34 pg 07/29/2024 9:15 AM [facility] MCHC 35.8 32 - 36 g/dL 07/29/2024 9:15 AM [facility] RDW 17.1(H) 11.5 - 15 % 07/29/2024 9:15 AM [facility] Platelet Count 200 150 - 450 X10E9/L 07/29/2024 9:15 AM [facility] MPV 6.9(L) 7 - 12 fL 07/29/2024 9:15 AM [facility] Neutrophils % 77.5 % 07/29/2024 9:15 AM [facility] Lymphocytes % 9.3 % 07/29/2024 9:15 AM [facility] Monocytes % 7.0 % 07/29/2024 9:15 AM [facility] Eosinophils % 5.4 % 07/29/2024 9:15 AM [facility] Basophils % 0.8 % 07/29/2024 9:15 AM [facility] Neutrophils Absolute (A) 4.6 1.5 - 6.6 10*3/uL 07/29/2024 9:15 AM [facility] Lymphocytes Absolute 0.6(L) 1.0 - 3.5 10*3/uL 07/29/2024 9:15 AM [facility] Monocytes Absolute 0.4 0.0 - 0.9 10*3/uL 07/29/2024 9:15 AM [facility] Eosinophils Absolute 0.3 0.0 - 0.4 10*3/uL 07/29/2024 9:15 AM [facility] Basophils Absolute 0.0 0.0 - 0.2 10*3/uL 07/29/2024 9:15 AM [facility] Differential Type AUTOMATED DIFFERENTIAL 07/29/2024 9:15 AM [facility] Blood Venous blood / Unknown 07/29/2024 8:40 AM EDT 07/29/2024 9:03 AM EDT us Shereen Smallwood PA-C LAB BLOOD ORDERABLES Fin al Result Performing Organization Address City/[facility] Center/ZIP Co de Phone Number [facility] [address] [place] [address], [place] * (ABNORMAL) Basic Metabolic Panel (07/29/2024 8:40 AM EDT) Only the most recent of2 resultswithin the time period is included. SODIUM 139 134 - 146 mmol/L 07/29/2024 10:01 AM [facility] POTASSIUM 4.0 3.5 - 5.0 mmol/L 07/29/2024 10:01 AM [facility] CHLORIDE 108 98 - 109 mmol/L 07/29/2024 10:01 AM [facility] CARBON DIOXIDE 27 22 - 32 mmol/L 07/29/2024 10:01 AM [facility] ANION GAP 4(L) 5 - 15 mmol/L 07/29/2024 10:01 AM [facility] BLOOD UREA NITROGEN 10 5 - 23 mg/dL 07/29/2024 10:01 AM [facility] CREATININE 0.77 0.40 - 1.00 mg/dL 07/29/2024 10:01 AM [facility] Comment:METHOD TRACEABLE TO IDMS STANDARD GLUCOSE 81 65 - 99 mg/dL 07/29/2024 10:01 AM [facility] CALCIUM 8.3(L) 8.5 - 10.5 mg/dL 07/29/2024 10:01 AM [facility] EGFR Non-Race Dependent >90 >=60 ml/min/1.7 3sq.m 07/29/2024 10:01 AM [facility] Comment: Reported eGFR is based on the CKD-EPI 2020 equation that does not use a race coefficient. Blood Venous blood / Unknown 07/29/2024 8:40 AM EDT 07/29/2024 9:03 AM EDT us Shereen Smallwood PA-C LAB BLOOD ORDERABLES Fin al Result Performing Organization Address City/[facility]/ZIP Co de Phone Number [facility] [address] [place] [address], [place] * EKG (07/28/2024 3:26 PM EDT) 07/28/2024 3:26 PM EDT Narrative TRACEMASTERVUE - 07/28/2024 6:36 PM EDT us yLnda Kulkarni TRANSFORMER SHOP SUPERVISOR-ESCALATION ENGINEER ECG ORDERABLES Final Resul t Performing Organization Address City/[facility]/ZIP Co de Phone Number [facility] * (ABNORMAL) Iron and TIBC (07/28/2024 6:14 AM EDT) IRON 26(L) 50 - 170 ug/dL 07/28/2024 2:50 PM EDT [facility] TRANSFERRIN 193 168 - 336 mg/dL 07/28/2024 2:50 PM EDT [facility] IRON BINDING 270 250 - 425 ug/dL 07/28/2024 2:50 PM EDT [facility] IRON SATURATION 10(L) 15 - 50 % SATURATION 07/28/2024 2:50 PM EDT [facility] Blood Venous blood / Unknown Port / Unknown 07/28/2024 6:14 AM EDT 07/28/2024 6:20 AM EDT us Lynda Cayla RICHTER-ESCALATION ENGINEER LAB BLOOD ORDERABLES Final Result Performing Organization Address [facility] Co de Phone Number [facility] [address] [place] [address], [place] [phone] * Prealbumin (07/28/2024 6:14 AM EDT) PREALBUMIN 19 18 - 45 mg/dL 07/28/2024 2:50 PM EDT [facility] Blood Venous blood / Unknown Port / Unknown 07/28/2024 6:14 AM EDT 07/28/2024 6:20 AM EDT us Shereen Smallwood PA-C LAB BLOOD ORDERABLES Fin al Result [facility] [address] [place] [address], [place] [phone] * Folate (07/28/2024 6:14 AM EDT) FOLIC ACID 6.9 >5.8 ng/mL 07/28/2024 3:47 PM EDT [facility] Blood Venous blood / Unknown Port / Unknown 07/28/2024 6:14 AM EDT 07/28/2024 6:20 AM EDT Lynda Cayla BRIGGSN-ESCALATION ENGINEER LAB BLOOD ORDERABLES Final Result Performing Organization Address City/[facility]/ZIP Co de Phone Number [facility] [address] [place] [address], [place] [phone] * (ABNORMAL) Ferritin (07/28/2024 6:14 AM EDT) FERRITIN 374(H) 11 - 307 ng/mL 07/28/2024 11:50 AM EDT [facility] Blood Venous blood / Unknown Port / Unknown 07/28/2024 6:14 AM EDT 07/28/2024 6:20 AM EDT Lynda Kulkarni APRN-ESCALATION ENGINEER LAB BLOOD ORDERABLES Final Result Performing Organization Address City/[facility]/ZIP Co de Phone Number [facility] [place] [address], [place] * (ABNORMAL) Vitamin B12 (07/28/2024 6:14 AM EDT) VITAMIN B12 984(H) 180 - 914 pg/mL 07/28/2024 3:48 PM EDT [facility] Blood Venous blood / Unknown Port / Unknown 07/28/2024 6:14 AM EDT 07/28/2024 6:20 AM EDT Lynda Cayla BRIGGSN-ESCALATION ENGINEER LAB BLOOD ORDERABLES Final Result [facility] [address] [place] [address], * IR percutaneous biopsy liver (07/11/2024 2:56 [...] trained personnel. A total of 30 minutes [id number]-rd-[id number] moderate sedation was provided by Dr. Luz. [...] trained personnel. A total of 30 minutes cqkf-rr-emiyluyquyqm sedation was provided by Dr. Lzu. Following the procedure,the patient was recovered according [...] sec 07/11/2024 1:16 PM EDT [facility] Blood 07/11/2024 12:5 3 PM EDT 07/11/2024 12:56 PM EDT us Valdemar Luz MD LAB BLOOD ORDERABLES Final R esult [facility] [address] [place] [address], * Protime & INR (07/11/2024 12:53 PM EDT) PROTIME 10.9 9.8 - 13.2 sec 07/11/2024 1:16 PM ED[address] [facility] INR 1.0 0.9 - 1.2 07/11/2024 1:16 PM EDT [facility] Blood 07/11/2024 12:5 3 PM EDT 07/11/2024 12:56 PM EDT Valdemar Luz MD LAB BLOOD ORDERABLES Final R [facility] Performing Organization Address [facility] Co de Phone Number [facility] [address] [place], [place] [address], [place] * Platelet count (07/11/2024 12:53 PM EDT) Platelet Count 258 150 - 450 X10E9/L 07/11/2024 1:12 PM EDT [facility] MPV 7.1 7 - 12 fL 07/11/2024 1:12 PM EDT [facility] Blood 07/11/2024 12:5 3 PM EDT 07/11/2024 12:56 PM EDT Valdemar Luz MD LAB BLOOD ORDERABLES Final R [facility] Performing Organization Address [facility] de Phone Number [facility] [address] [place] [address], [place] * (ABNORMAL) Generic Send Out Lab Use Only (06/15/2024 11:40 AM EDT) Test name NAIMA STALEY PEAK SERUM 06/15/2024 4:11 PM EDT [facility] Test result SEE COMMENTS 06/16/2024 12:45 PM(A) 06/16/2024 1:45 PM EDT [facility] Comment: NOTE Test Result Flag Unit RefValue Amikacin, Peak, S 18.1 L mcg/mL 20.0 - 35.0 Test Performed by: [address] [address] [employer]: Colten Sosa Ph.D.; CLIA# [id number] MISCELLANEOUS 06/15/2024 11: 40 AM EDT 06/15/2024 11:43 AM EDT us Carolina Munguia APRN-ESCALATION ENGINEER LAB ORDERABLES Final Resu lt MILAMTERRI [facility] [address] [place] [address] * (ABNORMAL) Comprehensive metabolic panel (06/15/2024 6:00 AM EDT) Only the most recent of6 resultswithin the time period is included. Sodium 138 134 - 146 mmol/L 06/15/2024 7:16 AM [facility] Potassium, Bld 3.7 3.5 - 5.0 mmol/L 06/15/2024 7:16 AM [facility] Chloride 104 98 - 109 mmol/L 06/15/2024 7:16 AM [facility] CO2 29 22 - 32 mmol/L 06/15/2024 7:16 AM [facility] Anion gap 5 5 - 15 mmol/L 06/15/2024 7:16 AM [facility] BUN 16 5 - 23 mg/dL 06/15/2024 7:16 AM [facility] Creatinine 0.68 0.40 - 1.00 mg/dL 06/15/2024 7:16 AM [facility] Comment:METHOD TRACEABLE TO IDMS STANDARD Glucose 87 65 - 99 mg/dL 06/15/2024 7:16 AM [facility] Calcium 9.2 8.5 - 10.5 mg/dL 06/15/2024 7:16 AM [facility] Total Protein 5.3(L) 6.0 - 8.0 g/dL 06/15/2024 7:16 AM [facility] Albumin 3.2 3.2 - 5.3 g/dL 06/15/2024 7:16 AM [facility] Alkaline Phosphatase 64 39 - 130 U/L 06/15/2024 7:16 AM [facility] AST 13 0 - 41 U/L 06/15/2024 7:16 AM [facility] ALT 11 0 - 31 U/L 06/15/2024 7:16 AM EDT [facility] Total bilirubin 0.7 0.3 - 1.2 mg/dL 06/15/2024 7:16 AM EDT [facility] eGFR (CKD-EPI)non-rac e dependent >90 >59 ml/min/1.7 3sq.m 06/15/2024 7:16 AM EDT [facility] Comment: Reported eGFR is based on the CKD-EPI 2020 equation that does not use a race coefficient. PLASMA 06/15/2024 6:00 AM EDT 06/15/2024 6:35 AM EDT us Benita Gutierrez-Graverona TRANSFORMER SHOP SUPERVISOR-ESCALATION ENGINEER LAB BLOOD ORDERABL ES Final Result Performing Organization Address [facility] Co de Phone Number [facility] [address] [place] [address] * (ABNORMAL) Fungal culture includes fungal smear (06/13/2024 5:47 PM EDT) Fungal smear NO FUNGAL ELEMENTS SEEN ON DIRECT SMEAR 06/14/2024 7:17 AM EDT [facility] Culture MYCOBACTERIUM ABSCESSUS GROUP(A) 07/20/2024 1:31 PM EDT [facility] Culture DR. ALLAN LUI REQUESTS SUSCEPTIBILITY 06/29/24 07/20/2024 1:31 PM EDT [facility] Culture SEE SEPARATE REPORT FOR SUSCEPTIBILITY 07/18/24 07/20/2024 1:31 PM EDT [facility] Tissue (Other) 06/13/2024 5: 47 PM EDT Comment:Pre-op diagnosis: L Chest wall wound us Jhon Rosado MD MICROBIOLOGY - GENERA L ORDERABLES Final Result Performing Organization Address City/[facility]/ZIP Co de Phone Number [facility] [address] [facility] [place] [address] * Amikacin, Trough, S (06/13/2024 10:50 AM EDT) Amikacin, Trough, S <0.8 <8.0 mcg/mL 06/14/2024 1:58 PM EDT [facility] Comment: NOTE Test Performed by: [address] [address] [employer]: Colten Sosa Ph.D.; CLIA# [id number] Blood Serum / Unknown 06/13/2024 1 0:50 AM EDT 06/13/2024 11:18 AM EDT us Natalie Ureña TRANSFORMER SHOP SUPERVISOR-ESCALATION ENGINEER LAB BLOOD ORDERABLES Heidy l Result Performing Organization Address [facility]/ZIP Co de Phone Number [facility] [address] [place] [address] * Potassium (06/12/2024 8:35 PM EDT) Only the most recent of2 resultswithin the time period is included. Potassium, Bld 3.8 3.5 - 5.0 mmol/L 06/12/2024 9:13 PM EDT [facility] PLASMA 06/12/2024 8:35 PM EDT 06/12/2024 8:40 PM EDT us Amy Jack MD LAB BLOOD ORDERABLES Final Resul t Performing Organization Address [facility] de Phone Number [facility] [address] [place] [address] * Magnesium (06/12/2024 10:30 AM EDT) Only the most recent of2 resultswithin the time period is included. Magnesium 2.0 1.8 - 2.6 mg/dL 06/12/2024 11:13 AM EDT [facility] PLASMA 06/12/2024 10:3 0 AM EDT 06/12/2024 10:36 AM EDT us Benita Ozunal-Gratop TRANSFORMER SHOP SUPERVISOR-ESCALATION ENGINEER LAB BLOOD ORDERABL ES Final Result Performing Organization Address [facility]/ZIP Co de Phone Number [facility] [address] [place] [address] * CT chest without contrast (06/11/2024 8:30 [...] detection for pulmonary nodules was performed utilizing Simmr software. FINDINGS: Assessment in the absence of intravenous contrast is suboptimal, especially with respect to vasculature, metastatic disease, and infectious precesses [if clinically relevant]. Despite this constraint, best attempt is made: No acute findings at the thoracic inlet. Right axillary surgical clips with spiculated soft tissue, 2.2 cm. Right breast prosthesis/tissue knowledge engineer. Open cutaneous wound about the left prepectoral [...] aided detection for pulmonary nodules was performedutilizing Simmr software. FINDINGS: Assessment in the absence of intravenous contrast is suboptimal,especially with respect to vasculature, metastatic disease, and infectiousprecesses [if clinically relevant]. Despite this constraint, best attemptis made: No acute findings at the thoracic inlet. Right axillary surgical clipswith spiculated soft tissue, 2.2 cm. Right breast prosthesis/tissue knowledge engineer. Open cutaneous wound about theleft prepectoral region, [...] MD on 06/12/2024 4:52 AM Carolina Munguia TRANSFORMER SHOP SUPERVISOR-ESCALATION ENGINEER IMG CT ORDERABLES Edited R esult - Final * Wound culture superficial includes gram stain (06/11/2024 5:15 PM EDT) Gram Stain Result 1 to 9 WHITE BLOOD CELLS/LPF 06/11/2024 11:00 PM EDT [facility] Gram Stain Result 0 to 1 SQUAMOUS EPITHELIAL CELLS/LPF 06/11/2024 11:00 PM EDT [facility] Gram Stain Result NO ORGANISMS SEEN 06/11/2024 11:00 PM EDT [facility] Culture RARE NORMAL SKIN EMILIE 06/13/2024 8:02 AM EDT [facility] Wound swab / Unknown 06/11/2024 5:15 PM EDT 06/11/2024 6:38 PM EDT Comment:CHEST us Carolina Munguia APRN-ESPERANZA MICROBIOLOGY - GENERAL ORD ERAELVIE Final Result [facility] [address] [facility], [address] [place] [address] * Blood culture (06/11/2024 12:40 AM EDT) Only the most recent of3 resultswithin the time period is included. Culture NO GROWTH 5 DAYS 06/16/2024 9:02 AM EDT [employer] Blood Blood / Unknown 06/11/2024 1 2:40 AM EDT 06/11/2024 8:51 AM EDT Comment:LEFT ARM us Deshaun Acevedo MD MICROBIOLOGY - GENERAL BRADY RIVERA Final Result [facility] * NON [facility] WHOLE BODY (06/03/2024 11:05 AM EDT) us Scanning Provider External IMG PET ORDERABLES Fi nal Result from Last 3 Months Additional Health Concerns Active Problems Noted Date Diagnosed Date Autogenerated Problem 08/09/2024 Insurance [facility] MEDICAID [facility] MEDICA[facility] Advance Directives * Full Code (Latest [...] 6:33 AM 10/29/2023 2:40 PM Care Teams Press Operator Apprentice Relationship Specialty Start Date End Date Amy Collier APRN-ESPERANZA [address] [place] [address] PCP - General 11/28/16
--- OUTSIDE RECORDS SUMMARY | 2024-08-25 14:06 | XMS_ITS ---
Author Organization [employer] Address [id number] [address] [place] [address] Care Team Providers Care Farm Supervisor Name Role Phone Amy Collier LINING SETTER-STRAIGHT RULING MACHINE OPERATOR Primary Care Provider + Active Problems Problem [...] Cancer Staging:Clinical:Stage IIIC(cT2, cN3, cM0, G3, ER+, MN-, HER2-) - Signed by Christy He MD [...]
--- OUTSIDE RECORDS SUMMARY | 2024-08-25 14:06 | XMS_ITS | Encounter Summary ---
Author Organization [facility] Address [address] [place] [address] Care Team Providers Care Financial Services Internship Name Role Phone Nilda Carolina ROBER Unavailable [phone] Jessica Hope MD Unavailable [phone] Lynda Manuel CNP Primary Care Provider [phone] Shereen Smallwood PA-C Unavailable [phone] Radha Martinez RN Unavailable Source Comments In the event this information is protected by the Federal Confidentiality of Alcohol and Drug AbusePatient Records regulations: The Federal rules restrict any use of the information to criminally investigate or prosecute any alcohol or drug abuse patient.[facility] Encounter Details Date Type Department Care Team (Late st Contact Info) Description 05/31/2024 Lab Requisition [facility] [address] [place] [address] Jessica Hope MD [address] [place] [address] Person encountering health services to [...] Case Report Bone Marrow Pathology Report Case: [id number] Authorizing Provider: Jessica Hope MD Collected: 05/31/2024 09:19 PM Ordering Location: [facility] Received: 05/31/2024 09:20 PM [facility] Pathologist: Deidre Avelar MD, PhD Specimen: Slide(s), 13 SLIDES [id number] 06/12/2024 11:59 AM EDT [facility] FINAL DIAGNOSIS A. Outside materials received from [facility], [place], [place] (External ID [id number], 05/12/2024) Bone marrow aspirate smears, touch imprints, core biopsy and clot section: -Cellular bone marrow with maturing trilineage hematopoiesis and increased ring sideroblasts. -Increased storage iron. -See comment. Peripheral blood smear: -Pancytopenia [facility] June 11, 2024 06/12/2024 11:59 AM EDT [facility] at 1159 EDT Diagnosis Comment [...] Linezolid is associated with ring sideroblasts (PMID: [id number]) and may cause bone marrow suppression. Tedezolid is in the same class, although may be associated with less bone marrow suppression (PMID: [id number]). Overall, given the absence of evidence of clonal hematopoeisis, interval resampling following completion of the the antibiotic course may be helpful to further clarify, if cytopenias persist. Please do not hesitate to contact the Hematopathology Consult Service at [phone] for any questions or if additional follow-up information becomes available. 06/12/2024 11:59 AM EDT [facility] Microscopic Description PERIPHERAL BLOOD: CBC [...] lobation. Other: Additional stains are performed at [facility] to further clarify the morphologic [...] Performed. 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 06/12/2024 11:59 AM EDT [facility] Clinical History CONSULT REQUESTED 06/12/2024 11:59 AM EDT [facility] Performing Lab Diagnostic interpretation performed at: [facility], [address] [place] [address], [place] [address] CLIA# [id number] Household Appliances Service Technician: Derick Meadows MD 06/12/2024 11:59 AM EDT [facility] Disclaimer Laboratory Developed Test (LDT) Disclaimer: Performance characteristics of immunohistochemica l, immunofluorescent, and chromogenic in-situ hybridization tests have been determined by the performing laboratory within [facility]'s Yunior Lala Pathology and Laboratory Medicine Department ([facility], [facility], [facility], [facility], [facility], [facility], or [facility]) in a manner consistent with CLIA requirements. One or more of these tests may not have been cleared or approved by the FDA. [facility] is regulated under CLIA as qualified to perform high-complexity testing. These tests are used for clinical purposes. These should not be regarded as investigational or for research. Positive and negative controls stain appropriately. 06/12/2024 11:59 AM EDT [facility] Blocks or Slides MICROSCOPE SLIDE / Unknown 05/31/2024 9:19 PM EDT 05/31/2024 9:20 PM EDT us Jessica Hope MD SURGICAL PATHOLOGY Final Resul t [facility] [address] [address], documented in this encounter Visit Diagnoses Diagnosis Person encountering health services to consult on behalf of another person Other person consulting on behalf of another person documented in this encounter Care Teams Financial Services Internship Relationship Specialty Start Date End Date Lynda Manuel CNP [address] [place] [address] PCP - General Family Medicine 06/14/24 Carolina Munguia APRN [address] [facility] [address] [address] 12/04/23 Jessica Hope MD [address] [place] [address] Referring Hematology/Oncology 06/14/24 Shereen Smallwood PA-C [address] [facility] [address] [place] [address] [facility] Referring Orthopedics 06/15/24 [place] [address] [place] [address] Specialty Treadle Cut Off Saw Operator Hematology/Oncology 07/31/24 documented as of this encounter
--- NOTE | 2024-08-25 14:33 | ED_ITS ---
HPI HPI - General Adult General Chief complaint: Recheck/Abnormal Lab/Rx Stated complaint: ABNORMAL LAB Time Seen by Provider: 08/25/24 14:02 Source: patient Mode of arrival: walk-in Limitations: no limitations History of Present Illness HPI narrative: Patient is a 53-year-old female referred to this emergency department by oncology for an abnormal outpatient CT that was performed. Patient has a history of metastatic breast cancer. 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 Patient states for the last 1 to 2 weeks she has had intermittent extremity weakness and slurred speech. She had an outpatient CT of the brain performed today which showed an enhancing posterior fossa mass measuring 2 x 1.5 x 1.3 cm. There was no noted hemorrhage or mass effect. She was sent to this emergency department to be transferred to [facility]. She has no other focal medical complaints at this time. Related Data Home Medications ?Medication ?Instructions ?Recorded ?Confirmed cyclobenzaprine 10 mg tablet 10 mg PO BEDTIME 03/23/23 04/07/24 anastrozole 1 mg tablet mg 03/23/24 apixaban 5 mg tablet (Eliquis) mg 03/23/24 clofazimine 50 mg capsule mg PO 03/23/24 cyanocobalamin (vitamin B-12) mcg 03/23/24 1,000 mcg tablet imipenem-cilastatin 500 mg ml 03/23/24 intravenous solution magnesium oxide 400 mg PO DAILY 03/23/2408/24 potassium chloride 10 mEq meq PO 03/23/24 tablet,extended release pyridoxine (vitamin B6) 50 mg 50 mg PO DAILY 03/23/24 04/07/24 capsule (Vitamin B-6) tedizolid 200 mg tablet (Sivextro) 200 mg PO DAILY 04/07/24 Previous Rx's ?Medication ?Instructions ?Recorded ibuprofen 800 mg tablet 800 mg PO Q8H PRN pain 14 da ys #40 04/07/24 tabs oxycodone-acetaminophen 5 mg-325 1 tab PO Q6H PRN pain 4 days #16 04/07/24 mg tablet (Percocet) tabs Allergies Allergy/AdvReac Type Severity Reaction Status Date / Time vancomycin Allergy Intermediate MIRNA Verified 08/25/24 13:58 daptomycin Allergy Mild Flushing Verified 08/25/24 13:58 doxycycline Allergy Mild Hives Verified 08/25/24 13:58 tigecycline Allergy Mild Hives Verified 08/25/24 13:58 adhesive tape Allergy Rash Verified 08/25/24 13:58 meperidine (From Demerol) Allergy Swelling Verified 08/25/24 13:58 of Lip/Tongue/Throat Opioid HPI Opioid Management Most Recent Opioid Data: Last Pain Scale 3 04/07/24, 11:50 Review of Systems ROS Constitutional Denies: fever or chills Ears, nose, mouth, and throat Denies: throat pain or nasal congestion Cardiovascular Denies: chest pain Respiratory Denies: shortness of breath or cough Gastrointestinal Denies: nausea or vomiting Integumentary/Breast Denies: rash Hematologic/Lymphatic Denies: easy bruising or easy bleeding PFSH PFS Medical History (Updated 08/25/24 @ 19:33 by TATI Cassidy) Pain due to varicose veins of both lower extremities ?I83.813 - Varicose veins of bilateral lower extremities with pain (ICD-10) Anemia ?D64.9 - Anemia, unspecified (ICD-10) COVID-19 ?U07.1 - COVID-19 (ICD-10) Exercise-induced asthma ?J45.990 - Exercise induced bronchospasm (ICD-10) PICC (peripherally inserted central catheter) in place (04/20/23) ?Z45.2 - Encounter for adjustment and management of vascular access device (ICD-10) Postoperative nausea and vomiting ?R11.2 - Nausea with vomiting, unspecified (ICD-10) ?Z98.890 - Other specified postprocedural states (ICD-10) Invasive ductal carcinoma of breast ?C50.919 - Malignant neoplasm of unspecified site of unspecified female breast (ICD-10) Arthritis ?M19.90 - Unspecified osteoarthritis, unspecified site (ICD-10) HTN (hypertension) ?I10 - Essential (primary) hypertension (ICD-10) Migraines ?G43.909 - Migraine, unspecified, not intractable, without status migrainosus (ICD-10) Surgical History History of tonsillectomy ?Z90.89 - Acquired absence of other organs (ICD-10) H/O ultrasound guided needle biopsy ?Z98.890 - Other specified postprocedural states (ICD-10) S/P breast lumpectomy ?Z98.890 - Other specified postprocedural states (ICD-10) H/O exploratory laparotomy ?Z98.890 - Other specified postprocedural states (ICD-10) H/O: hysterectomy ?Z90.710 - Acquired absence of both cervix and uterus (ICD-10) H/O arthroscopy of left knee ?Z98.890 - Other specified postprocedural states (ICD-10) S/P right knee arthroscopy ?Z98.890 - Other specified postprocedural states (ICD-10) H/O excision of mass ?Z98.890 - Other specified postprocedural states (ICD-10) Family History Mother Pain due to varicose veins of both lower extremities Other Family history not known due to adoption Social History Within the past year, how often did you have a drink containing alcohol: monthly or less Smoking status: Never smoker Non-prescribed substance use: denies use 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 Highest level of school completed/degree received: Associate degree: academic program Little interest or pleasure in doing things: not at all Feeling down, depressed, or hopeless: not at all Exam Narrative Exam Narrative: Gen.: Awake, alert, in no distress Head: Normocephalic, atraumatic ENT: Moist mucous membranes Respiratory: No respiratory distress Extremities: Moves extremities equally, no injuries noted Psych: Normal mood and affect Neuro: No focal neuro deficit Skin: Warm, dry, intact Constitutional Vital Signs, click to edit/add: Last Vital Signs Temp 98.6 F 08/25/24 18:38 Pulse 84 08/25/24 18:38 Resp 16 08/25/24 18:38 BP 138/86 08/25/24 18:38 Pulse Ox 98 08/25/24 18:38 O2 Del Method Room Air 08/25/24 13:58 Course Vital Signs Vital signs: Vital Signs Temperature 98.5 F 08/25/24 13:58 Pulse Rate 72 08/25/24 13:58 Respiratory Rate 16 08/25/24 13:58 Blood Pressure 140/92 H 08/25/24 13:58 Pulse Oximetry 97 08/25/24 13:58 Oxygen Delivery Method Room Air 08/25/24 13:58 Temperature 98.6 F 08/25/24 18:38 Pulse Rate 84 08/25/24 18:38 Respiratory Rate 16 08/25/24 18:38 Blood Pressure 138/86 08/25/24 18:38 Pulse Oximetry 98 08/25/24 18:38 Oxygen Delivery Method Room Air 08/25/24 13:58 Medical Decision Making MDM Narrative Medical decision making narrative: Basic labs ordered for the patient, she declined any pain medication or nausea medication in the ER. Case was discussed with [facility], Dr. Sahu for oncology who accepted the patient. We are awaiting placement at this time for a bed assignment and transfer. SHARED APC VISIT, PHYSICIAN ATTESTATION: [id number] I performed a substantive part of the MDM during the patient?s E/M visit. I personally evaluated and examined the patient. I personally made or approved the documented management plan and acknowledge its risk of complications. Medical Records Medical records reviewed: Yes I reviewed the patient's medical records Lab Data Lab results reviewed: Yes I reviewed the patient's lab results Labs: Lab Results 08/25/24 08/25/24 Range/Units 14:44 16:15 WBC 4.1 (4.0-11.0) 10^3/uL RBC 2.92 L (4.20-5.40) 10^6/uL Hgb 9.6 L (12.0-16.0) g/dL Hct 27.8 L (36.0-48.0) % MCV 95.2 (81.0-99.0) fL MCH 32.9 (26.7-34.0) pg MCHC 34.5 (29.9-35.2) g/dL RDW 18.1 H (11.0-15.0) % Plt Count 240 (150-450) 10^3/uL MPV 9.1 L (9.5-13.5) fL Neut % (Auto) 59.5 (43.0-75.0) % Lymph % (Auto) 20.7 (20.5-60.0) % [place] % (Auto) 9.4 (1.7-12.0) % Eos % (Auto) 8.4 H (0.9-7.0) % Baso % (Auto) 1.5 (0.2-2.0) % Neut # (Auto) 2.4 (1.4-6.5) 10^3/uL Lymph # (Auto) 0.8 L (1.2-3.8) 10^3/uL [place] # (Auto) 0.4 (0.3-0.8) 10^3/uL Eos # (Auto) 0.3 (0.0-0.7) 10^3/uL Baso # (Auto) 0.1 (0.0-0.1) 10^3/uL Abs Immat Gran (auto) 0.02 (0.00-0.03) 10^3/uL Imm/Tot Granulo (auto) 0.5 (0.0-0.5) % PT 12.7 H (9.0-11.6) sec INR 1.22 Sodium 142 (136-145) mmol/L Potassium 3.9 (3.5-5.1) mmol/L Chloride 106 (98-107) mmol/L Carbon Dioxide 24.9 (21.0-32.0) mmol/L Anion Gap 15.0 BUN 15.0 (7.0-18.0) mg/dL Creatinine 1.19 H (0.55-1.02) mg/dL Est GFR ( Amer) 57 L (>=60 mL/min/1.73m^2) Est GFR (Non-Af Amer) 47 L (>=60 mL/min/1.73m^2) BUN/Creatinine Ratio 12.6 Glucose 100 (74-106) mg/dL Calcium 9.3 (8.5-10.1) mg/dL Magnesium 1.9 (1.8-2.4) mg/dL Total Bilirubin 0.8 (0.2-1.0) mg/dL AST 109 H (15-37) U/L ALT 154 H (14-59) U/L Alkaline Phosphatase 113 (46-116) U/L Total Protein 6.3 L (6.4-8.2) g/dL Albumin 3.4 (3.4-5.0) g/dL Globulin 2.9 g/dL Albumin/Globulin Ratio 1.2 Urine Color Lt. yellow (YELLOW) Urine Clarity Clear (CLEAR) Urine pH 7.0 (5.0-9.0) Ur Specific [place] <=1.005 A (1.005-1.025) Urine Protein Negative (NEG/TRACE) mg/dL Urine Glucose (UA) Negative (NEGATIVE) mg/dL Urine Ketones Negative (NEGATIVE) mg/dL Urine Occult Blood Negative (NEGATIVE) Urine Nitrite Negative (NEGATIVE) Urine Bilirubin Negative (NEGATIVE) Urine Urobilinogen 0.2 (0.2-1.0) EU/dL Ur Leukocyte Esterase Negative (NEGATIVE) Urine RBC None seen (0-2) #/HPF Urine WBC None seen (NONE SEEN) #/HPF Ur Squamous Epith Cells Rare (NONE/RARE) #/LPF Urine Crystals None seen (None Seen) #/HPF Urine Bacteria None seen (NONE SEEN) #/HPF Urine Casts None seen (NONE SEEN) #/LPF Urine Mucus None seen (NONE SEEN) Ur Culture Indicated? No Discharge Plan Discharge Chief Complaint: Recheck/Abnormal Lab/Rx Clinical Impression: Metastatic cancer to brain Patient Disposition: [facility] Time of Disposition Decision: 19:32 Discharge Location: [facility]
[2024-08-25 14:51] LABS: Basophils Absolute Auto 0.1 10^3/uL (0.0-0.1); Basophils Percent Auto 1.5 % (0.2-2.0); Eosinophils Absolute Auto 0.3 10^3/uL (0.0-0.7); Eosinophils Percent Auto 8.4 % (0.9-7.0); Hematocrit 27.8 % (36.0-48.0); Hemoglobin 9.6 g/dL (12.0-16.0); Immature Granulocytes Abs Auto 0.02 10^3/uL (0.00-0.03); Immature Granulocytes Pct Auto 0.5 % (0.0-0.5); Lymphocytes Absolute Auto 0.8 10^3/uL (1.2-3.8); Lymphocytes Percent Auto 20.7 % (20.5-60.0); Mean Corpuscular HGB Conc 34.5 g/dL (29.9-35.2); Mean Corpuscular Hemoglobin 32.9 pg (26.7-34.0); Mean Corpuscular Volume 95.2 fL (81.0-99.0); Mean Platelet Volume 9.1 fL (9.5-13.5); Monocytes Absolute Auto 0.4 10^3/uL (0.3-0.8); Monocytes Percent Auto 9.4 % (1.7-12.0); Neutrophils Absolute Auto 2.4 10^3/uL (1.4-6.5); Neutrophils Percent Auto 59.5 % (43.0-75.0); Platelet Count 240 10^3/uL (150-450); Red Blood Count 2.92 10^6/uL (4.20-5.40); Red Cell Distribution Width 18.1 % (11.0-15.0); White Blood Count 4.1 10^3/uL (4.0-11.0)
[2024-08-25 15:06] LABS: Magnesium 1.9 mg/dL (1.8-2.4)
[2024-08-25 15:09] LABS: INR 1.22; Prothrombin Time 12.7 sec (9.0-11.6)
[2024-08-25 15:12] LABS: Alanine Aminotransferase 154 U/L (14-59); Albumin Globulin Ratio 1.2; Albumin Level 3.4 g/dL (3.4-5.0); Alkaline Phosphatase 113 U/L (46-116); Aspartate Amino Transferase 109 U/L (15-37); BUN Creatinine Ratio 12.6; Bilirubin Total 0.8 mg/dL (0.2-1.0); Calcium 9.3 mg/dL (8.5-10.1); Carbon Dioxide 24.9 mmol/L (21.0-32.0); Chloride 106 mmol/L (98-107); Estimated GFR (African America 57 (>=60 mL/min/1.73m^2); Estimated GFR (Non-African Ame 47 (>=60 mL/min/1.73m^2); Globulin 2.9 g/dL; Glucose 100 mg/dL (74-106); Potassium 3.9 mmol/L (3.5-5.1); Sodium 142 mmol/L (136-145); Total Protein 6.3 g/dL (6.4-8.2)
[2024-08-25 16:31] LABS: Bilirubin Urine NEGATIVE (NEGATIVE); Blood Urine NEGATIVE (NEGATIVE); Clarity Urine CLEAR (CLEAR); Color Urine LT. YELLOW (YELLOW); Glucose Urine UA NEGATIVE (NEGATIVE); Ketones Urine NEGATIVE (NEGATIVE); Leukocyte Esterase Urine NEGATIVE (NEGATIVE); Nitrite Urine NEGATIVE (NEGATIVE); Protein Urine NEGATIVE (NEG/TRACE); Specific Gravity Urine <=1.005 (1.005-1.025); Urobilinogen Urine 0.2 EU/dL (0.2-1.0)
[2024-08-25 16:39] LABS: Bacteria Urine NONE SEEN #/HPF (NONE SEEN); Cast Seen? NONE SEEN #/LPF (NONE SEEN); Crystals Seen? None Seen #/HPF (None Seen); Mucus Urine NONE SEEN (NONE SEEN); RBC Urine NONE SEEN #/HPF (0-2); Squamous Epithelial Cell Urine RARE #/LPF (NONE/RARE); Urine Culture Indicated NO; WBC Urine NONE SEEN #/HPF (NONE SEEN)
[2024-08-25 18:38] VITALS: BP 138/86; PULSE 84; TEMP 37; O2SAT 98
--- NOTE | 2024-08-25 19:28 | PC.NURSE ---
several supplies gathered for pt and her to do wet to dry dressing. has been doing these dressing change for several months and has requested to do this. OK per pt. and PA.
[2024-08-25] MEDS: IMIPENEM/CILASTATIN SODIUM 500 MG in 0.9 % SODIUM CHLORIDE 100 ML 200 MG IV (21:19)
[2024-08-25] MEDS: APIXABAN 5 MG TABLET PO (21:20)
[2024-08-25] MEDS: POTASSIUM CHLORIDE 10 MEQ ER TABLET 20 MEQ PO (21:20)
[2024-08-25] MEDS: GABAPENTIN 300 MG CAPSULE PO (21:20)
[2024-08-25] MEDS: FERROUS SULFATE 325 MG TABLET PO (21:28)
[2024-08-25] MEDS: CARVEDILOL 12.5 MG TABLET PO (21:28)
[2024-08-25 21:32] VITALS: BP 126/98; O2SAT 100
[2024-08-25 23:43] VITALS: BP 122/70; PULSE 80; O2SAT 98
--- NOTE | 2024-08-25 23:59 | PC.NURSE ---
Pt without c/o at this time. Resting intermittently with eyes closed. Regular and non-labored respirations observed.
[2024-08-26 04:45] VITALS: BP 120/80; PULSE 76; O2SAT 98
[2024-08-26 08:30] VITALS: BP 136/89; PULSE 75; TEMP 36.6; O2SAT 97
[2024-08-26] MEDS: FERROUS SULFATE 325 MG TABLET PO (09:15)
[2024-08-26] MEDS: CARVEDILOL 12.5 MG TABLET PO (09:15)
[2024-08-26] MEDS: GABAPENTIN 300 MG CAPSULE PO (09:16)
[2024-08-26] MEDS: SPIRONOLACTONE 25 MG TABLET 12.5 MG PO (09:16)
[2024-08-26] MEDS: APIXABAN 5 MG TABLET PO (09:16)
[2024-08-26] MEDS: POTASSIUM CHLORIDE 10 MEQ ER TABLET 20 MEQ PO (09:16)
[2024-08-26] MEDS: IMIPENEM/CILASTATIN SODIUM 500 MG in 0.9 % SODIUM CHLORIDE 100 ML 200 MG IV (09:17)
[2024-08-26 10:56] VITALS: BP 141/94; PULSE 77; TEMP 36.6; O2SAT 100
== END 2024-08-26 11:05 | disposition short-term general hospital (02) ==
PROVIDERS: Physician Assistant; Emergency Provider Emergency Medicine; PCP Nurse Practitioner Family
DX: C79.31 Secondary malignant neoplasm of brain (principal); R93.0 Abnormal findings on diagnostic imaging of skull and head, not elsewhere classified; R53.1 Weakness; R47.81 Slurred speech; C50.311 Malignant neoplasm of lower-inner quadrant of right female breast; Z79.899 Other long term (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 therapy; D70.1 Agranulocytosis secondary to cancer chemotherapy; R11.2 Nausea with vomiting, unspecified; C77.9 Secondary and unspecified malignant neoplasm of lymph node, unspecified; D49.6 Neoplasm of unspecified behavior of brain; Z15.09 Genetic susceptibility to other malignant neoplasm; Z79.818 Long term (current) use of other agents affecting estrogen receptors and estrogen levels; D64.81 Anemia due to antineoplastic chemotherapy; C77.3 Secondary and unspecified malignant neoplasm of axilla and upper limb lymph nodes; Z17.1 Estrogen receptor negative status [ER-]; Z17.22 Progesterone receptor negative status; Z90.13 Acquired absence of bilateral breasts and nipples; Z90.710 Acquired absence of both cervix and uterus
CPT/HCPCS: 36415; 36592; 70470; 80053; 81001; 83735; 85025; 85610; 96365; 96366; 99285; J0743; Q9967

== ENCOUNTER 2024-09-06 07:37 | Outpatient (RCR) | payer OTHER, SELFPAY | END 2024-09-07 08:09 | disposition home or self-care (01) | LOC: HEMC 07:37 | PROVIDERS: PCP Nurse Practitioner Family; Visit Provider Internal Medicine Hematology & Oncology | DX: Z53.9 Procedure and treatment not carried out, unspecified reason (principal) | CPT/HCPCS: G0463 ==

== ENCOUNTER 2024-09-29 07:30 | Outpatient (RCR) | payer OTHER, SELFPAY ==
[2024-09-06 10:52] LABS: Hematocrit 29.8 % (36.0-48.0); Hemoglobin 10.2 g/dL (12.0-16.0); Immature Granulocytes Abs Auto 0.10 10^3/uL (0.00-0.03); Immature Granulocytes Pct Auto 1.2 % (0.0-0.5); Lymphocytes Absolute Auto 1.4 10^3/uL (1.2-3.8); Mean Corpuscular HGB Conc 34.2 g/dL (29.9-35.2); Mean Corpuscular Hemoglobin 33.4 pg (26.7-34.0); Mean Corpuscular Volume 97.7 fL (81.0-99.0); Platelet Count 227 10^3/uL (150-450); Red Blood Count 3.05 10^6/uL (4.20-5.40); White Blood Count 8.3 10^3/uL (4.0-11.0)
[2024-09-06 11:05] LABS: Alanine Aminotransferase 138 U/L (14-59); Albumin Globulin Ratio 1.1; Albumin Level 3.4 g/dL (3.4-5.0); Alkaline Phosphatase 78 U/L (46-116); Aspartate Amino Transferase 51 U/L (15-37); Estimated GFR (African America 56 (>=60 mL/min/1.73m^2); Estimated GFR (Non-African Ame 46 (>=60 mL/min/1.73m^2); Globulin 3.1 g/dL; Total Protein 6.5 g/dL (6.4-8.2)
[2024-09-07 08:09] LABS: Amikacin Trough, Serum <0.8 ug/mL (1.0-8.0)
[2024-09-09 08:09] LABS: Amikacin Peak, Serum 31.4 ug/mL (20.0-30.0)
[2024-09-12 11:21] LABS: Hematocrit 29.3 % (36.0-48.0); Hemoglobin 9.9 g/dL (12.0-16.0); Immature Granulocytes Abs Auto 0.05 10^3/uL (0.00-0.03); Immature Granulocytes Pct Auto 0.6 % (0.0-0.5); Lymphocytes Absolute Auto 1.7 10^3/uL (1.2-3.8); Mean Corpuscular HGB Conc 33.8 g/dL (29.9-35.2); Mean Corpuscular Hemoglobin 34.0 pg (26.7-34.0); Mean Corpuscular Volume 100.7 fL (81.0-99.0); Platelet Count 229 10^3/uL (150-450); Red Blood Count 2.91 10^6/uL (4.20-5.40); White Blood Count 8.4 10^3/uL (4.0-11.0)
[2024-09-12 11:52] LABS: Alanine Aminotransferase 117 U/L (14-59); Albumin Globulin Ratio 1.2; Albumin Level 3.4 g/dL (3.4-5.0); Alkaline Phosphatase 75 U/L (46-116); Aspartate Amino Transferase 49 U/L (15-37); Estimated GFR (African America 50 (>=60 mL/min/1.73m^2); Estimated GFR (Non-African Ame 41 (>=60 mL/min/1.73m^2); Globulin 2.9 g/dL; Total Protein 6.3 g/dL (6.4-8.2)
[2024-09-13 09:09] LABS: Amikacin Trough, Serum <0.8 ug/mL (1.0-8.0)
[2024-09-16 08:11] LABS: Amikacin Peak, Serum 36.2 ug/mL (20.0-30.0)
[2024-09-19 12:12] LABS: Hematocrit 30.5 % (36.0-48.0); Hemoglobin 10.8 g/dL (12.0-16.0); Immature Granulocytes Abs Auto 0.05 10^3/uL (0.00-0.03); Immature Granulocytes Pct Auto 0.9 % (0.0-0.5); Lymphocytes Absolute Auto 1.5 10^3/uL (1.2-3.8); Mean Corpuscular HGB Conc 35.4 g/dL (29.9-35.2); Mean Corpuscular Hemoglobin 35.9 pg (26.7-34.0); Mean Corpuscular Volume 101.3 fL (81.0-99.0); Platelet Count 236 10^3/uL (150-450); Red Blood Count 3.01 10^6/uL (4.20-5.40); White Blood Count 5.7 10^3/uL (4.0-11.0)
[2024-09-19 12:23] LABS: Alanine Aminotransferase 120 U/L (14-59); Albumin Globulin Ratio 1.3; Albumin Level 3.6 g/dL (3.4-5.0); Alkaline Phosphatase 63 U/L (46-116); Aspartate Amino Transferase 41 U/L (15-37); Estimated GFR (African America 57 (>=60 mL/min/1.73m^2); Estimated GFR (Non-African Ame 47 (>=60 mL/min/1.73m^2); Globulin 2.8 g/dL; Total Protein 6.4 g/dL (6.4-8.2)
[2024-09-20 10:08] LABS: Amikacin Trough, Serum <0.8 ug/mL (1.0-8.0)
[2024-09-22 10:08] LABS: Amikacin Peak, Serum 30.9 ug/mL (20.0-30.0)
[2024-09-26 13:38] LABS: Hematocrit 27.7 % (36.0-48.0); Hemoglobin 9.7 g/dL (12.0-16.0); Immature Granulocytes Abs Auto 0.04 10^3/uL (0.00-0.03); Immature Granulocytes Pct Auto 1.0 % (0.0-0.5); Lymphocytes Absolute Auto 1.2 10^3/uL (1.2-3.8); Mean Corpuscular HGB Conc 35.0 g/dL (29.9-35.2); Mean Corpuscular Hemoglobin 36.2 pg (26.7-34.0); Mean Corpuscular Volume 103.4 fL (81.0-99.0); Platelet Count 187 10^3/uL (150-450); Red Blood Count 2.68 10^6/uL (4.20-5.40); White Blood Count 3.8 10^3/uL (4.0-11.0)
[2024-09-26 13:54] LABS: Alanine Aminotransferase 77 U/L (14-59); Albumin Globulin Ratio 1.1; Albumin Level 3.4 g/dL (3.4-5.0); Alkaline Phosphatase 60 U/L (46-116); Aspartate Amino Transferase 45 U/L (15-37); Estimated GFR (African America 57 (>=60 mL/min/1.73m^2); Estimated GFR (Non-African Ame 47 (>=60 mL/min/1.73m^2); Globulin 3.1 g/dL; Total Protein 6.5 g/dL (6.4-8.2)
[2024-09-27 09:08] LABS: Amikacin Trough, Serum <0.8 ug/mL (1.0-8.0)
[2024-09-30 08:12] LABS: Amikacin Peak, Serum 31.9 ug/mL (20.0-30.0)
== END 2024-09-29 23:59 | disposition home or self-care (01) ==
LOC: INF 07:30
PROVIDERS: PCP Nurse Practitioner Family
DX: A31.8 Other mycobacterial infections (principal)
CPT/HCPCS: 36592; 80076; 80150; 82565; 85025

== ENCOUNTER 2024-10-10 15:02 | Outpatient (OUT) | payer OTHER, SELFPAY ==
--- OUTSIDE RECORDS SUMMARY | 2024-09-07 16:30 | XMS_ITS | Encounter Summary ---
Author Organization [facility] Address [facility] [place] [address] Care Team Providers Care Computer Sciences Professor Name Role Phone Carolina Munguia APRN Unavailable [phone] Jessica Hope MD Unavailable [phone] Lynda Manuel CNP Primary Care Provider [phone] Shereen Smallwood PA-C Unavailable [phone] Radha Martinez RN Unavailable Source Comments In the event this information is protected by the Federal Confidentiality of Alcohol and Drug AbusePatient Records regulations: The Federal rules restrict any use of the information to criminally investigate or prosecute any alcohol or drug abuse patient.[facility] Reason for Visit * Auth/Cert (Routine) Specialty [...] LESION(S) 1 SESSION MULTI-SOURCE COBALT Anesthesia [address] [id number] Referral ID Status Reason Start Date Expiration Date Visits Re quested Visits Authorized [id number] 1 1 Encounter Details Date Type Department Care Team (Latest Contact Info) Description 09/07/2024 4:30 PM EDT Hospital Encounter Anesthesia [address] [place] [address] Carlos Mccain DO, PhD [address] [place] [address] 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] Social History Tobacco Use Types Packs/Day Years Used Date Smoking Tobacco: Never Passive Smoke Exposure: Never Smokeless Tobacco: Never Alcohol Use Standard Drinks/Week Comments Not Currently 0 (1 standard drink = 0.6 oz pur e alcohol) Occasional wine [facility] Utilities Answer Date [...] any time in the past 12 m [facility], were you homeless or living in a m[facility]p (including now)? No 08/29/2024 Area Deprivation Index Answer Date Milton rded National Score (1-100), lower number is lower ri sk 82 07/21/2024 State Score (1-10), lower number is lower risk 7 07/21/2024 Data from: https://www.neighborhoodatlas.medicine.[facility].edu/. Last address used for calculation [address] [...] Info) Description 11/29/2024 10:20 AM EDT Appointment [facility] Radiology [place] [address] [place] [address] With Perfusion 12/01/2024 2:00 PM EDT [facility] Brain Tumor [place] [address] [place] [address] Carlos Mccain DO, PhD [address] [facility] [address] [place] [address] Established patient Visit with Dr. Mccain for MRI review and follow up documented as of this encounter Visit Diagnoses Not on filedocumented in this encounter Care Teams Computer Sciences Professor Relationship Specialty Start Date End Date Lynda Manuel CNP [address] [facility] [place] [address] PCP - General Family Medicine 06/14/24 09/26/24 Carolina Munguia APRN [address] [facility] [address] [facility] [place] [address] 12/04/23 Jessica Hope MD [address] [place] [address] Referring Hematology/Oncology 06/14/24 Shereen Smallwood PA-C [address] [facility] [address] [facility] [place] [address] [facility] Referring Orthopedics 06/15/24 [place] [address] [place] [address] Specialty Funeral Director Hematology/Oncology 07/31/24 documented as of this encounter
--- OUTSIDE RECORDS SUMMARY | 2024-09-20 10:45 | XMS_ITS ---
Author Organization [facility] [place] Address [address] [place] [address] Care Team Providers Care Port Crane Operator Name Role Phone Lynda Lawson Primary Care Provider UnavailJessica Lala Unavailable [phone] REASON FOR VISIT MD Encounters Encounter Location Date Provider Diagnosis [facility] Oncology [address] [place] [id number] 09/20/2024 Jessica Hope Plan Of Treatment Next Appt Details Provider Name:Jessica Hope , 10/11/2024 08:30:00 AM, [address] [place], [address], Progress Notes * Yasmin FLANNERY ADOB:[birth year] (54 yo F)Acc No.[id number]:09/20/2024 UNLOCKED PROGRESS NOTE Progress Notes Patient: Yasmin KHALIL Provider: Yumi Hope M.D. :1970 A ge:53 Y S ex:Female Date:09/20/2024 Address:[address] [id number] Pcp:GUY Wilson Subjective: * Chief Complaints: * 1 . MD. * Medical History: Objective: * Vitals: Assessment: Plan: * Treatment: * * Electronic signature of Parisa Hope MD, [phone] on 2024 at 03:05 PM EDT Sign off status: Pending Visit Status: P EN (Pending) * Provider: Yumi Hope M.D. Date: 0 09/20/2024 Generated for Abby stewart/Danni/Sujata on: 0 2024 03:05 PM EDT
--- OUTSIDE RECORDS SUMMARY | 2024-09-20 11:00 | XMS_ITS ---
Author Organization The [facility] in [place] Address [address] [place] [address] Care Team Providers Care Agricultural Mechanic Name Role Phone Lynda Lawson Primary Care Provider UnavailJessica Lala Unavailable [phone] REASON FOR VISIT MD Encounters Encounter Location Date Provider Diagnosis [facility] Oncology [address] [place] [phone] 09/20/2024 Jessica Hope Plan Of Treatment Next Appt Details Provider Name:Jessica Hope , 10/11/2024 08:30:00 AM, [address] [place], [address], Progress Notes * Yasmin FLANNERY ADOB:[birth year] (54 yo F)Acc No.[id number]:09/20/2024 UNLOCKED PROGRESS NOTE Progress Notes Patient: Yasmin KHLAIL Provider: Yumi Hope M.D. :1970 A ge:53 Y S ex:Female Date:09/20/2024 Address:[address] [place] , [id number] Pcp:GUY Wilson Subjective: * Chief Complaints: * 1 . MD. * Medical History: Objective: * Vitals: Assessment: Plan: * Treatment: * * Electronic signature of Parisa Hope MD, [id number] on 2024 at 03:07 PM EDT Sign off status: Pending Visit Status: C ANC (Cancelled) * Provider: Yumi Hope M.D. Date: 0 09/20/2024 Generated for Abby stewart/Danni/Sujata on: 0 2024 03:07 PM EDT
--- OUTSIDE RECORDS SUMMARY | 2024-10-04 07:15 | XMS_ITS ---
Author Organization [facility] in [place] Address [address] [place] [address] Care Team Providers Care Lace Inspector Name Role Phone Lynda Lawson Primary Care Provider UnavailJessica Lala Unavailable [phone] REASON FOR VISIT MD Encounters Encounter Location Date Provider Diagnosis [facility] Oncology [address] [place] [phone] 10/04/2024 Jessica Hope Plan Of Treatment Next Appt Details Provider Name:Jessica Hope , 10/11/2024 08:30:00 AM, [address] [place], [address], Progress Notes * Yasmin FLANNERY ADOB:[birth year] (54 yo F)Acc No.[id number]:10/04/2024 UNLOCKED PROGRESS NOTE Progress Notes Patient: Yasmin KHALIL Provider: Yumi Hope M.D. :1970 A ge:53 Y S ex:Female Date:10/04/2024 Address:[address] [place] , [id number] Pcp:GUY Wilson Subjective: * Chief Complaints: * 1 . MD. * Medical History: Objective: * Vitals: Assessment: Plan: * Treatment: * * Electronic signature of Parisa Hope MD, [id number] on 2024 at 03:07 PM EDT Sign off status: Pending Visit Status: C ANC (Cancelled) * Provider: Yumi Hope M.D. Date: 10/04/2024 Generated for Abby stewart/Danni/Sujata on: 2024 03:07 PM EDT
--- OUTSIDE RECORDS SUMMARY | 2024-10-05 13:30 | XMS_ITS | Encounter Summary ---
Author Organization [facility] tem Address [id number] [address] [place] [address] Care Team Providers Care National Van Owner Operator Name Role Phone Amy Collier JUNIOR ACCOUNT EXECUTIVE-COMMUNITY HEALTH EDUCATION COORDINATOR Primary Care Provider + Reason for Visit * Reason Comments Post-op Encounter Details Date Type Department Care Team (Latest Contact Info) Description 10/05/2024 1:30 PM EDT Office Visit [facility] [address] [place] [address] Marisela Davila, JUNIOR ACC[facility] [address], [address] [place] [address] Breast wound, left, sequela (Primary Dx); Infection of deep incisional surgical site after procedure, subsequent encounter Social History Tobacco Use Types Packs/Day Years Used Date Smoking Tobacco: Never Passive Smoke Exposure: Past Smokeless Tobacco: Never Alcohol Use Standard Drinks/Week Comments Not Currently 0 (1 standard drink = 0.6 oz pur e alcohol) [facility] Utilities Answer Date Recorded In the past 12 months has [employer], gas, oil, or water [employer] threatened to shut off services in your home? No 07/27/2024 Social Connection and Isolat ion Panel [NHANES] Answer Date Recorded In a typical week, how many times do you talk on the phone with family, friends, or neighbors? Twice a week 02/27/2022 How often do you get togethe r with friends or relatives? Three times a week 02/27/2022 How often do you attend [facility] or baptist services? More than 4 times per year 02/27/2022 Do you belong to any clubs o r organizations such as hindu groups, unions, fraternal or athletic groups, or [...] Date Recorded Total Score 0 08/10/2024 [facility] of Occupat ional Health - Occupational Stress [...] Recorded Do you need help finding a [facility] career center and/or a training [...] Sign Reading Time Taken Comments Blood Pressure 116/86 10/05/2024 1:28 PM EDT Pulse 77 10/05/2024 1:28 PM EDT Temperature 36.3 C (97.4 F) 10/05/2024 1:28 PM EDT Respiratory Rate 15 10/05/2024 1:28 PM EDT Oxygen Saturation - - Inhaled Oxygen Concentration - - Weight - - Height - - Body Mass Index - - documented in this encounter Progress Notes * AMEENA Kennedy - 10/05/2024 1:30 PM EDT Images from the original note were not included. [facility] [address] Office Jhon Rosado MD, PhD AMEENA Kennedy PA-C Plastic Surgery Progress Note Reason for visit : post-op History of present illness: Yasmin Flannery is a 53 y.o. female with a history of right breastcancer status post bilateral skin sparing mastectomies (He) and tissue media relations manager reconstruction in 10/28/2023. Her postoperative course was complicated by an infected seroma of her left breast requiring operative washout and tissue media relations manager removal 11/27/23. 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 She then developed a wound of her left breast requiring I&D of her left breast 02/26/24. Intraoperative tissue cultures were sent and again positive for mycobacterium. She again developed a left breast wound requiring I&D on 03/21/24. Her wound was healing well until she began experiencing increasing redness and erythema. She returned to the OR on 05/02/2024 for I and D of her left breast with removal of her port. She returned again on 05/04/2024, 06/13/24, 07/27/24, and 08/12/24 for repeat debridement. 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 She states she is doing well. She has been performing either b.i.d. wet-to-dry dressing changes or applying Xeroform gauze over top of her wound. She has gamma knife radiation scheduled for Thursday [facility]. She has a whole-body PET scan scheduled next Thursday with oncology follow up on Thursday. The patient denies fever, chills, redness or drainage from surgical wound(s). Review of Systems: Denies surgical site concerns. All other symptoms negative except as noted in HPI. Physical Examination: Vitals: 10/05/24 1328 BP: 116/86 Pulse: 77 Resp: 15 Temp: 36.3 ??C (97.4 ??F) There is no height or weight on file to calculate BMI. GENERAL: no acute distress, well developed, well nourished. LYMPHATIC: no upper extremity lymphedema NEUROLOGIC: alert and oriented to time, place and person. PSYCH: judgement and insight good, mood/affect full range. Focused examination : Left breast wound remains present. Wound bed with pink granulation tissue present. Small blister/bleb present to the central portion.. No purulent drainage. No sign of infection. Right breast incision is well approximated. Breast is soft. No fluid collections palpated. Impression: No diagnosis found. Recommendations: Patient is doing well. Discussed with patient that she does have a new area of blistering present to her left breast. After verbal consent with silver nitrate was applied to the healthy pink granulation tissue. Xeroform gauze was then applied. Discussed with patient and Dr. Rosado regarding the blistering/bleb formation of her left breast. Dr. Rosado would like to proceed with debridement next week. Patient is aware. We will work on scheduling a date and time and contact patient with this information. She is agreeable to plan. She was advised to call the office any questions or concerns in the interim. - AMEENA Rand 10/05/24 2:42 PM Please note that portions of this note were generated using voice recognition SHIFT dictation software. Although every effort was made to ensure the accuracy of this automated near east archeology professor, some errors in near east archeology professor may have occurred. AMEENA Kennedy 10/05/24 1443 documented in this encounter Plan of Treatment Upcoming Encounters Date Type Department Care Team (Late st Contact Info) Description 10/12/2024 5:00 PM EDT Hospital Encounter [facility] Surgery [address] [place] [address] Jhon Rosado MD [address], [facility] [address] [place] [address] 10/12/2024 5:00 PM EDT - 10/12/2024 6:15 PM EDT Surgery [facility] Surgery [address] [place] [address] Jhon Rosado MD [address], [facility] [address] [place] [phone] DEBRIDEMENT BREAST 10/26/2024 8:30 AM EDT Telephone Visit [facility] Oncology, A Department of [place] [address] [facility] [address] [place] [address] Raymond Sepulveda MD [address] [place] [address], [address] [place] [address] Scheduled Procedures Name Priority Associated Diagnoses Date/Ti me DEBRIDEMENT BREAST BREAST WOUND LEFT 10/12/2024 5:00 PM EDT documented as of this encounter Goals Goal Patient Goal Type Associated Problems Recent Progress Patient-Stated? 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
--- OUTSIDE RECORDS SUMMARY | 2024-10-07 07:04 | XMS_ITS | Encounter Summary ---
Author Organization [facility] Address [facility] [place] [address] Care Team Providers Care Solid Waste Collection Worker Name Role Phone Carolina Munguia APRN Unavailable [phone] Jessica Hope MD Unavailable [phone] Shereen Smallwood PA-C Unavailable [phone] Radha Martinez RN Unavailable Amy Collier NP Primary Care Provider [phone] Source Comments In the event this information is protected by the Federal Confidentiality of Alcohol and Drug AbusePatient Records regulations: The Federal rules restrict any use of the information to criminally investigate or prosecute any alcohol or drug abuse patient.[facility] Reason for Referral * MRI/CT (Routine) - Closed Specialty Diagnoses / Procedures Referred By Jose olmedo Referred To Contact MR IMAGING Diagnoses Secondary malignant neoplasm of brain (HCC) Procedures MRI BRAIN LOCALIZATION W IVCON MAGNETIC RESONANCE ELASTOGRAPHY Carlos Mccain DO, PhD [facility] [address] [place] [address] Phone: tel: fax: MR IMAGING [facility]95 Referral ID Status Reason Start Date Expiration Date V isits Requested Visits Authorized [id number] Closed Auto-Generat ed Referral Patient Cleared - Admin/Chairm an/Director advise to proceed or did not respond 10/07/2024 10/07/2024 1 1 Reason for Visit * Reason Comments Radiology MRI * Auth/Cert (Routine) Specialty Diagnoses / Procedures Referred By Contac t Referred To Contact ADMITTING Diagnoses 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] Procedures STEREOTACTIC RADIOSURGERY 1 COMPLEX CRANIAL LES RADIATION DELIVERY STEREOTACTIC CRANIAL COBALT STEREOTACTIC RADIOSURGERY 1 COMPLEX CRANIAL LESION RADIATION TX STEREOTACTIC RADIOSURGERY (SRS) [place] CRANIAL LESION(S) 1 SESSION MULTI-SOURCE COBALT Anesthesia [address] [id number] Referral ID Status Reason Start Date Expiration Date Visits Re quested Visits Authorized [id number] 1 1 Encounter Details Date Type Department Care Team (Latest Contact Info) Description 10/07/2024 7:04 AM EDT - 10/07/2024 11:59 PM EDT Hospital Encounter Radiology [address] [id number] 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] Discharge Disposition: Home Social History Tobacco Use Types Packs/Day Years Used Date Smoking Tobacco: Never Passive Smoke Exposure: Never Smokeless Tobacco: Never Alcohol Use Standard Drinks/Week Comments Not Currently 0 (1 standard drink = 0.6 oz pur e alcohol) Occasional wine [employer] Utilities Answer Date Recorded In the past 12 months has e [email or web address], gas, oil, or water [employer] threatened to shut off services in your [...] any time in the past 12 m [facility], were you homeless or living in a skilled nursing (including now)? No 08/29/2024 Area Deprivation Index Answer Date [place] rded National Score (1-100), lower number is lower ri sk 82 07/21/2024 State Score (1-10), lower number is lower risk 7 07/21/2024 Data from: https://www.neighborhoodatlas.medicine.[facility].edu/. Last address used for calculation [address] 07/21/2024 Comments Unknown Sex and Gender Information Value Date Recorded Sex Assigned at Not on file Legal Sex Female 3:51 PM EDT Gender Identity Not on file Sexual Orientation Not on file documented as of this encounter Medications at Time of Discharge 0.9 % sodium chloride (NACL 0.9%) infusion 04/15/2024 amikacin (AMIKIN) 500 mg/2 mL soln 07/14/2024 ELIQUIS 5 mg tab(s) Take 5 mg by mouth. 09/18/2023 carvedilol (COREG) 12.5 mg tablet Take 12.5 mg by mouth. 07/14/2024 cyanocobalamin (VITAMIN B-12) 1,000 mcg tab Take 1,000 mcg by mouth. 12/10/2023 cyclobenzaprine (FLEXERIL) 10 mg tablet Take 1 tablet by mouth every evening. 04/28/2023 diazePAM (VALIUM) 5 mg tablet Take 1 tablet (5 mg total) by mouth every 12 (twelve) hours as needed for anxiety or muscle spasms (Give 30min prior to dressing change) for up to 10 days for anxiety 05/12/2024 FEROSUL 325 mg (65 mg iron) tablet Take 1 tablet by mouth two times a day with meals. folic acid 1 mg tablet Take 1 mg by mouth. 05/22/2024 gabapentin (NEURONTIN) 300 mg capsule Take 300 mg by mouth two times a day. 05/02/2023 hydrOXYzine HCl (ATARAX) 25 mg tablet Take 25 mg by mouth. 05/12/2024 imipenem/cilasta tin sodium (IMIPENEM-CILAST ATIN INTRAVENOUS) Inject 1,000 mg intravenously two times a day. 05/22/2024 magnesium oxide 400 mg magnesium tab Take 400 mg by mouth. omadacycline (NUZYRA) 150 mg tablet Take 300 mg by mouth. oxyCODONE IR (ROXICODONE) 10 mg tab Take 1 tablet by mouth every 6 hours as needed. 06/15/2024 oxyCODONE IR (ROXICODONE) 5 mg immediate release tablet Take 1 tablet (5 mg total) by mouth every 4 hours as needed for pain for up to 7 days. Max Daily Amount 30 mg 05/12/2024 potassium chloride (K-TAB) 10 mEq tablet TAKE TWO TABLETS BY MOUTH TWICE A DAY prochlorperazine (COMPAZINE) 10 mg tablet 04/21/2023 pyridoxine, vitamin B6, (VITAMIN B6) 50 mg tablet Take 50 mg by mouth. 03/16/2024 spironolactone (ALDACTONE) 25 mg tablet Take 12.5 mg by mouth once daily. 03/26/2023 CLOFAZIMINE, BULK, MISC Take 100 mg by mouth. famotidine (PEPCID) 20 mg tablet Take 1 tablet by mouth once daily for 8 days. Patient should start on October 08, 2024. 8 tablet 10/08/2024 dexAMETHasone (DECADRON) 2 mg tablet Take 4mg (2 tablets) by mouth once a day for 4 days, then take 2mg (1 tablet) once a day for 4 days, then stop. Patient should start on October 08, 2024. 12 tablet 10/08/2024 capecitabine (XELODA) 500 mg tablet Take 1,500 mg by mouth. 08/03/2024 acetaminophen (TYLENOL) 325 mg tablet Take 650 mg by mouth q 6 HR. 07/29/2024 naloxone 4 mg/actuation nasal spray (NARCAN) Use 4 mg in the nose at bedtime as needed. 06/15/2024 famotidine (PEPCID) 20 mg tablet Take 1 tablet by mouth once daily. Patient should start on September 08, 2024. 10 tablet 09/08/2024 acyclovir (ZOVIRAX) 400 mg tablet Take 1 tablet by mouth two times a day. 60 tablet 09/01/2024 documented as of this encounter Progress Notes * Brionna Cobian RN - 10/07/2024 8:20 AM EDT Radiology Service Progress Note DATE OF SERVICE: October 07, 2024 TIME: 7:38 AM PATIENT WEIGHT: 201LBS PATIENT IDENTITY VERIFICATION COMPLETED USING TWO (2) STANDARD IDENTIFIERS: Name and Date of confirmed by patient verbally and Name and Date of confirmed by identification band. FALL SCREENING: Has the patient had 2 falls in the last year or 1 fall with injury or currently using an Ambulatory Assistive Device (Walker, Cane, Wheelchair, Crutches, etc.)? No PATIENT GENDER DATA: Assigned female at . status: : No status:NO. ALLERGIES: Reviewed and unchanged CONTRAST ALLERGY: No EXAM: MRI - CONTRAST TYPE: GROUP II IV SITE: Ambulatory: A power injectable PICC was accessed in the Left side. Blood Return, Flushed easily with normal saline, Good Blood Return Post Injection, Flushed with 20 cc saline, and No Complications and A Saline lock was inserted per protocol IV SITE APPEARANCE: Clean,Dry and Intact SIGNATURE: Brionna Cobian RN PATIENT NAME: Yasmin Flannery DATE: October 07, 2024 TIME: 7:38 AM * Maddi Wooten RT(R) - 10/07/2024 8:20 AM EDT Radiology Service Progress Note PATIENT NAME: Yasmin Flannery DATE OF SERVICE: October 07, 2024 TIME: 8:06 AM PATIENT IDENTITY VERIFICATION COMPLETED USING TWO (2) IDENTIFIERS: Name and Date of confirmedby patient verbally. FALL SCREENING: Has the patient had 2 falls in the last year or 1 fall with injury or currently using an Ambulatory Assistive Device (Walker, Cane, Wheelchair, Crutches, etc.)? No PATIENT GENDER DATA: Assigned female at . status: : No status:NO. PATIENT RELEVANT IMPLANT DATA REVIEWED: Yes PATIENT PRESENTS WITH AN IMPLANTABLE OR ATTACHED SUPERVISOR SEWING ROOM: No RADIOLOGY DEPARTMENT: MR; Exam(s) Completed: Head: Localization. Aromatherapy Administered: No PERIPHERAL IV DATA: Site assessment: Clean,Dry and Intact, Site disposition Discontinued SIGNED BY: Maddi Wooten RT(R) October 07, 2024 8:06 AM documented in this encounter Plan of Treatment Upcoming Encounters Date Type Department Care Team (Latest Contact Info) Description 11/29/2024 10:20 AM EDT Appointment [facility] Radiology MRI [address] [address] With Perfusion 12/01/2024 2:00 PM EDT [facility] [address] [place] [address] Carlos Mccain DO, PhD [address] [facility] [address] [place] [address] Established patient Visit with Dr. Mccain for MRI review and follow up documented as of this encounter Procedures Procedure Name Priority Date/Time Associated Diagnosis Comments MRI BRAIN LOCALIZATION W IVCON Routine 10/07/2024 8:38 AM EDT Secondary malignant neoplasm of brain (HCC) documented in this encounter Results * MRI BRAIN LOCALIZATION W IVCON (10/07/2024 8:38 AM EDT) Anatomical Region Laterality Modality Head Magnetic Resonan ce 10/07/2024 8:38 AM EDT Impressions 10/07/2024 9:03 AM EDT IMPRESSION: Examination performed for preprocedural planning purposes. Stable small lesion in the left middle frontal gyrus. Slight decrease in size of midline cerebellar vermis lesion and left inferior frontal lesion from 09/07/2024. Women'S Basketball Coach: CARLOS Transcribe Date/Time: Oct 07 2024 8:56A Dictated by : MACIE PIZANO DO This examination was interpreted and the report reviewed and electronically signed by: MACIE PIZANO DO on Oct 07 2024 9:01AM EST Narrative 10/07/2024 9:03 AM EDT * * *Final Report* * * DATE OF EXAM: Oct 07 2024 8:38AM CAM 0289 - MRI BRAIN LOCAL W IVCON / PROCEDURE REASON: Secondary malignant neoplasm of brain (HCC) * * * * Physician Interpretation * * * * EXAMINATION: MRI BRAIN LOCAL W IVCON HISTORY: Secondary malignant neoplasm of brain (HCC) - - - - Other (document in comments), this is for gk planning purposes - [id number] - - - - TECHNIQUE: MRI brain localization exam with intravenous contrast M: [id number] MR Contrast: Elucirem Contrast Dose: 9.5 cc Route of Administration: IV COMPARISON: Brain MRI 09/07/2024 RESULT: Compared to the 09/07/2024 examination, there is no substantial change in the small peripherally enhancing lesion measuring 4 mm the left middle frontal gyrus. Additional irregular heterogeneous lesion in the cerebellar vermis along the midline measures up to 15 mm and is slightly decreased from the prior examination where it previously measured up to 19 mm in similar transverse dimension. Punctate enhancing lesion in the left inferior frontal lobe on image 98 of series 2 is slightly decreased from the prior exam. There are no new enhancing intracranial lesions. No new mass effect or midline shift. Background brain parenchyma is otherwise unchanged. Stable caliber of the ventricular system. Basal cisterns are clear. Procedure Note Provider, [facility] - 10/07/2024 * * *Final Report* * * DATE OF EXAM: Oct 07 2024 8:38AM CAM 0289 - MRI BRAIN LOCAL W IVCON / PROCEDURE REASON: Secondary malignant neoplasm of brain (HCC) * * * * Physician Interpretation * * * * EXAMINATION: MRI BRAIN LOCAL W IVCON HISTORY: Secondary malignant neoplasm of brain (HCC) - - - - Other (document in comments), this is for gk planning purposes - [id number] - - - - TECHNIQUE: MRI brain localization exam with intravenous contrast M: [id number] MR Contrast: Elucirem Contrast Dose: 9.5 cc Route of Administration: IV COMPARISON: Brain MRI 09/07/2024 RESULT: Compared to the 09/07/2024 examination, there is no substantial change in the small peripherally enhancing lesion measuring 4 mm the left middle frontal gyrus. Additional irregular heterogeneous lesion in the cerebellar vermis along the midline measures up to 15 mm and is slightly decreased from the prior examination where it previously measured up to 19 mm in similar transverse dimension. Punctate enhancing lesion in the left inferior frontal lobe on image 98 of series 2 is slightly decreased from the prior exam. There are no new enhancing intracranial lesions. No new mass effect or midline shift. Background brain parenchyma is otherwise unchanged. Stable caliber of the ventricular system. Basal cisterns are clear. IMPRESSION IMPRESSION: Examination performed for preprocedural planning purposes. Stable small lesion in the left middle frontal gyrus. Slight decrease in size of midline cerebellar vermis lesion and left inferior frontal lesion from 09/07/2024. 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 documented in this encounter Care Teams Solid Waste Collection Worker Relationship Specialty Start Date End Date Amy Collier NP [address] [place] [address] PCP - General Family Medicine 09/27/24 Carolina Munguia APRN [address] [facility] [address] [address] 12/04/23 Jessica Hope MD [address] [place] [address] Referring Hematology/Oncology 06/14/24 Shereen Smallwood PA-C [address] [facility] [address] [place] [address] [address] [phone] (Work) Referring Orthopedics 06/15/24 [place] [address] [place] [address] Specialty Brim Blocker Hematology/Oncology 07/31/24 documented as of this encounter
--- OUTSIDE RECORDS SUMMARY | 2024-10-07 07:04 | XMS_ITS | Encounter Summary ---
Author Organization [facility] Address [address] [place] [address] Care Team Providers Care Estate Administrator Name Role Phone Carolina Munugia APRN Unavailable [phone] Jessica Hope MD Unavailable [phone] Shereen Smallwood PA-C Unavailable [phone] Radha Martinez RN Unavailable Amy Collier NP Primary Care Provider [phone] Source Comments In the event this information is protected by the Federal Confidentiality of Alcohol and Drug AbusePatient Records regulations: The Federal rules restrict any use of the information to criminally investigate or prosecute any alcohol or drug abuse patient.[facility] Reason for Referral * MRI/CT (Routine) - Closed Specialty Diagnoses / Procedures Referred By Jose t Referred To Contact CT IMAGING Diagnoses Secondary malignant neoplasm of brain (HCC) Procedures CT BRAIN STEREOLOCAL WO IVCON CT GUIDANCE STEREOTACTIC LOCALIZATION Carlos Mccain DO, PhD [address] [facility] [address] [place] [address] Phone: tel: fax: CT IMAGING [address] [address] Referral ID Status Reason Start Date Expiration Date V isits Requested Visits Authorized [id number] Closed Auto-Generate d Referral 10/07/2024 03/01/2025 1 1 Reason for Visit * Reason Comments Radiology CT * Auth/Cert (Routine) Specialty Diagnoses / Procedures Referred By Contac t Referred To Contact ADMITTING Diagnoses 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] Procedures STEREOTACTIC RADIOSURGERY 1 COMPLEX CRANIAL LES RADIATION DELIVERY STEREOTACTIC CRANIAL COBALT STEREOTACTIC RADIOSURGERY 1 COMPLEX CRANIAL LESION RADIATION TX STEREOTACTIC RADIOSURGERY (SRS) TX CRANIAL LESION(S) 1 SESSION MULTI-SOURCE COBALT Anesthesia [address] [phone] Referral ID Status Reason Start Date Expiration Date Visits Re quested Visits Authorized [id number] 1 1 Encounter Details Date Type Department Care Team (Latest Contact Info) Description 10/07/2024 7:04 AM EDT - 10/07/2024 11:59 PM EDT Hospital Encounter Radiology [address] [id number] 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] Discharge Disposition: Home Social History Tobacco Use Types Packs/Day Years Used Date Smoking Tobacco: Never Passive Smoke Exposure: Never Smokeless Tobacco: Never Alcohol Use Standard Drinks/Week Comments Not Currently 0 (1 standard drink = 0.6 oz pur e alcohol) Occasional wine [facility] Utilities Answer Date Recorded In the past 12 months has [employer], gas, oil, or water [employer] threatened to shut off services in your [...] were you homeless or living in a mcc (including now)? No 08/29/2024 Area Deprivation Index Answer Date [place] rded National Score (1-100), lower number is lower ri sk 82 07/21/2024 State Score (1-10), lower number is lower risk 7 07/21/2024 Data from: https://www.neighborhoodatlas.medicine.[facility].edu/. Last address used for calculation [address] [...] as of this encounter Progress Notes * Alisha Grider RT(R) - 10/07/2024 9:45 AM EDT Radiology Service Progress Note PATIENT NAME: Yasmin Flannery DATE OF SERVICE: October 07, 2024 TIME: 8:47 AM PATIENT IDENTITY VERIFICATION COMPLETED USING TWO (2) IDENTIFIERS: Name and Date of confirmedby patient verbally and Name and Date of [...] PATIENT PRESENTS WITH AN IMPLANTABLE OR ATTACHED BEAM MACHINE OPERATOR: No RADIOLOGY DEPARTMENT: CT; Exam(s) Completed: Brain PERIPHERAL IV DATA: Not applicable SIGNED BY: RT Ivan(R) October 07, 2024 8:47 AM documented in this encounter Plan of Treatment Upcoming Encounters Date Type Department Care Team (Latest Contact Info) Description 11/29/2024 10:20 AM EDT Appointment [facility] [place] [address] [place] [address] With Perfusion 12/01/2024 2:00 PM EDT [facility] [address] [place] [address] Carlos Mccain DO, PhD [address] [facility] [address] [place] [address] Established patient Visit with Dr. Mccain for MRI review and follow up documented as of this encounter Procedures Procedure Name Priority Date/Time Associated Diagnosis Comments CT BRAIN STEREOLOCAL WO IVCON Routine 10/07/2024 8:47 AM EDT Secondary malignant neoplasm of brain (HCC) documented in this encounter Results * CT BRAIN STEREOLOCAL WO IVCON (10/07/2024 8:47 AM EDT) Anatomical Region Laterality Modality Head Computed Tomogra phy 10/07/2024 8:47 AM EDT Impressions 10/07/2024 8:58 AM EDT IMPRESSION: Examination performed for preprocedural planning purposes. Defense Travel Administrator: CARLOS Transcribe Date/Time: Oct 07 2024 8:54A Dictated by : MACIE PIZANO DO This examination was interpreted and the report reviewed and electronically signed by: MACIE PIZANO DO on Oct 07 2024 8:56AM EST Narrative 10/07/2024 8:58 AM EDT * * *Final Report* * * DATE OF EXAM: Oct 07 2024 8:47AM [facility] 0503 - CT BRAIN STEREOLOCAL WO IVCON / PROCEDURE REASON: Secondary malignant neoplasm of brain (HCC) * * * * Physician Interpretation * * * * EXAMINATION: CT BRAIN STEREOLOCAL WO IVCON HISTORY: Secondary malignant neoplasm of brain (HCC) - - - - Other (document in comments), this is for gk planning purposes. - [id number] - - - - TECHNIQUE: CT head without contrast. M: CTBWO_3 CT Dose-Length Product (DLP): 992 mGy*cm CT Dose Reduction Employed: No dose reduction techniques were required COMPARISON: Brain MRI, same day RESULT: Post-operative change: None. Acute change: No evidence of an acute intracranial process. Hemorrhage: No evidence of acute intracranial hemorrhage. Mass Lesion / Mass Effect: Previously depicted enhancing lesions in the left frontal lobe and cerebellar vermis are not well seen by unenhanced CT. Chronic change: None apparent. Parenchyma: No significant parenchymal volume loss. Ventricles: Normal caliber and morphology. Other: The calvarium, skull base, mastoids, orbits and extracranial soft tissues are unremarkable. Complete opacification of the left frontal sinus and anterior ethmoid air cells. Polyps or retention cysts in both maxillary antra. Stack Matcher (topogram) images: No additional findings. Procedure Note Provider, [facility] [place] - 10/07/2024 * * *Final Report* * * DATE OF EXAM: Oct 07 2024 8:47AM [facility] 0503 - CT BRAIN STEREOLOCAL WO IVCON / PROCEDURE REASON: Secondary malignant neoplasm of brain (HCC) * * * * Physician Interpretation * * * * EXAMINATION: CT BRAIN STEREOLOCAL WO IVCON HISTORY: Secondary malignant neoplasm of brain (HCC) - - - - Other (document in comments), this is for gk planning purposes. - [id number] - - - - TECHNIQUE: CT head without contrast. M: CTBWO_3 CT Dose-Length Product (DLP): 992 mGy*cm CT Dose Reduction Employed: No dose reduction techniques were required COMPARISON: Brain MRI, same day RESULT: Post-operative change: None. Acute change: No evidence of an acute intracranial process. Hemorrhage: No evidence of acute intracranial hemorrhage. Mass Lesion / Mass Effect: Previously depicted enhancing lesions in the left frontal lobe and cerebellar vermis are not well seen by unenhanced CT. Chronic change: None apparent. Parenchyma: No significant parenchymal volume loss. Ventricles: Normal caliber and morphology. Other: The calvarium, skull base, mastoids, orbits and extracranial soft tissues are unremarkable. Complete opacification of the left frontal sinus and anterior ethmoid air cells. Polyps or retention cysts in both maxillary antra. Stack Matcher (topogram) images: No additional findings. IMPRESSION IMPRESSION: Examination performed for preprocedural planning purposes. 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 documented in this encounter Care Teams Estate Administrator Relationship Specialty Start Date End Date Amy Collier NP [address] [place] [address] PCP - General Family Medicine 09/27/24 Carolina Munguia APRN [address] [facility] [address] [facility] [place] [id number] 12/04/23 Jessica Hope MD [address] [place] [address] Referring Hematology/Oncology 06/14/24 Shereen Smallwood PA-C [address] [facility] [address] [facility] [place] [address] [facility] Referring Orthopedics 06/15/24 [place] [address] [place] [address] Specialty Manager Etl Hematology/Oncology 07/31/24 documented as of this encounter
--- OUTSIDE RECORDS SUMMARY | 2024-10-07 09:00 | XMS_ITS | Encounter Summary ---
Author Organization [facility] Address [facility] [place] [address] Care Team Providers Care Freight Engineer Name Role Phone Carolina Munguia APRN Unavailable [phone] Jessica Hope MD Unavailable [phone] Shereen Smallwood PA-C Unavailable [phone] Radha Martinez RN Unavailable Amy Collier NP Primary Care Provider [phone] Source Comments In the event this information is protected by the Federal Confidentiality of Alcohol and Drug AbusePatient Records regulations: The Federal rules restrict any use of the information to criminally investigate or prosecute any alcohol or drug abuse patient.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] Procedures STEREOTACTIC RADIOSURGERY 1 COMPLEX CRANIAL LES RADIATION DELIVERY STEREOTACTIC CRANIAL COBALT STEREOTACTIC RADIOSURGERY 1 COMPLEX CRANIAL LESION RADIATION [place] STEREOTACTIC RADIOSURGERY (SRS) [place] CRANIAL LESION(S) 1 SESSION MULTI-SOURCE COBALT Anesthesia [address] [id number] Referral ID Status Reason Start Date Expiration Date Visits Re quested Visits Authorized [id number] 1 1 Encounter Details Date Type Department Care Team (Late st Contact Info) Description 10/07/2024 9:00 AM EDT Office Visit Neurosurgery [address] [place] [address] Secondary malignant neoplasm of brain (HCC) (Primary Dx) Social History Tobacco Use Types Packs/Day Years Used Date Smoking Tobacco: Never Passive Smoke Exposure: Never Smokeless Tobacco: Never Alcohol Use Standard Drinks/Week Comments Not Currently 0 (1 standard drink = 0.6 oz pur e alcohol) Occasional wine [facility] Utilities Answer Date Recorded In the [...] any time in the past 12 m [facility], were you homeless or living in a senior living (including now)? No 08/29/2024 Area Deprivation Index Answer Date Milton rded National Score (1-100), lower number is lower ri sk 82 07/21/2024 State Score (1-10), lower number is lower risk 7 07/21/2024 Data from: https://www.neighborhoodatlas.medicine.[employer].edu/. Last address used for calculation [address] 07/21/2024 Comments Unknown Sex and Gender Information Value Date Recorded Sex Assigned at Not on file Legal Sex Female 3:51 PM EDT Gender Identity Not on file Sexual Orientation Not on file documented as of this encounter Last Filed Vital Signs Vital Sign Reading Time Taken Comments Blood Pressure 122/81 10/07/2024 9:06 AM EDT Pulse 76 10/07/2024 9:06 AM EDT Temperature - - Respiratory Rate - - Oxygen Saturation 98% 10/07/2024 9:06 AM EDT Inhaled Oxygen Concentration - - Weight - - Height - - Body Mass Index - - documented in this encounter Patient Instructions * Patient Instructions* Promise Hammond RN - 10/07/2024 9:[address] [facility] Discharge Instructions As with any surgery there are risks and potential side effects. There is a slight chance of developing brain swelling days or months after the Gamma Knife radiosurgery. If you experience nausea, vomiting, severe headache, visual changes, difficulty speaking, a seizure or any other symptom unusual for you, contact your physician immediately or go to the nearest emergency room. These may or may notbe symptoms of brain swelling. If you go to a physician or hospital other than the [facility] with any problem related to the Gamma Knife procedure, please call your physician, Dr. Sherly Mccain at [phone]. After your treatment, you may experience a mild headache. You may take non- aspirin pain medication,such as Tylenol, if you are having any discomfort. Some patients are placed on steroids, such as Decadron, and an antacid, such as Pepcid, following their radiosurgery. Certain conditions require these medications to lessen the chance of swelling around the treated area. When prescribed, these medications are extremely important in the period immediately following your Gamma Knife treatment and must be taken exactly as directed. The Gamma Knife nurse will discuss your particular situation with you. Do not take any decadron for the remainder of today. Please begin following the new decadron regimen below on 10/08/24: Start the day after your Gamma Knife Procedure: Decadron (Dexamethasone) 2 mg tablets: Take 4 mg (2 tablets) daily for 4 days: (Thursday (Breakfast), Thursday (Breakfast), (Thursday (Breakfast), and Thursday (Breakfast), then Take 2 mg (1 tablet) daily for 4 days: (Thursday (Breakfast), (Breakfast), (Thursday (Breakfast), and Thursday (Breakfast), then Stop Decadron. Take Decadron with a meal or snack. Pepcid (famotidine) 20 mg tablets: Take Pepcid 20 mg (1 tablet) daily while on Decadron. Stop Pepcid when you stop the Decadron. Resume all other regular medications. -Taking good care of your general health is an important step to recovery. Continue to eat well andget plenty of rest. If you have any non-urgent questions or concerns, please call your physician, Dr. Sherly Mccain at [phone] Thursday through Thursday 8:00 am to 5:00 pm. In the evening or on weekends, call [phone] or toll-free [phone] and ask the feed crusher operator to page your neurosurgeon's resident economic developer. documented in this encounter Progress Notes * Promise Hammond RN - 10/07/2024 7:33 AM EDT October 07, 2024 0704 Yasmin arrived ambulatory with: self. Transportation home verified: yes, with Marvin. Hoffman here for today for imaging, mask fitting, pre-planning for Icon mask based Gamma Knife Stereotactic Radiosurgery by radiation therapist, and single session mask based treatment. ID verified with patient with two identifiers, name and birthdate. OC Hinds assessed for the following: Does Yasmin have any pain? No. Pain 0 on scale of 0-10 Does Yasmin have: Difficulty chewing and/or swallowing: no Fall risk assessment: Not at risk for falls Concerns about physical or emotional abuse: no Allergies reviewed with patient, yes. 7020-8060 Mask completed. To imaging for CT Scan and MRI. Yasmin Flannery returned to department for treatment # 1 of 1. Is patient on immunotherapy? No. Patient's Age: 53 Menstruation Status: Hysterectomy 921 Decadron 4 mg po and xanax 0.5 po given prior to Gamma Knife SRS per order of Dr. Adán MD. 0935 Patient assisted to treatment room. Gamma Knife SRS begun. 1014 Gamma Knife Stereotactic Radiosurgery Completed. 1020 Discharge instructions given to patient. Instructions reviewed by this nurse and patient verbalized an understanding. Pt then discharged. Promise Hammond RN documented in this encounter Plan of Treatment Upcoming Encounters Date Type Department Care Team (Latest Contact Info) Description 11/29/2024 10:20 AM EDT Appointment [facility] [place] [address] [place] [address] With Perfusion 12/01/2024 2:00 PM EDT [facility] [address] [place] [address] Carlos Mccain DO, PhD [address] [facility] [address] [place] [address] Established patient Visit with Dr. 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 documented in this encounter Administered Medications Inactive Administered Medications - up to 3 most recent administrations Medication Order MAR Action Action Date Dose Rate Site ALPRAZolam 0.5 mg tab(s) (XANAX) 0.5 mg, ORAL, ONCE, 1 dose, On Thu10/07/24 at 0930 Given 10/07/2024 9:22 AM EDT 0.5 mg dexAMETHasone 4 mg tab(s) (DECADRON) 4 mg, ORAL, ONCE, 1 dose, On Thu10/07/24 at 0930 Given 10/07/2024 9:22 AM EDT 4 mg documented in this encounter Care Teams Freight Engineer Relationship Specialty Start Date End Date Amy Collier NP [address] [place] [address] PCP - General Family Medicine 09/27/24 Carolina Munguia APRN [address] [facility] [address] [facility] [place] [address] 12/04/23 Jessica Hope MD [address] [place] [address] Referring Hematology/Oncology 06/14/24 Shereen Smallwood PA-C [address] [facility] [address] [facility] [place] [address] [facility] Referring Orthopedics 06/15/24 [place] [address] [place] [address] Specialty Linux Admin Engineer Hematology/Oncology 07/31/24 documented as of this encounter
--- OUTSIDE RECORDS SUMMARY | 2024-10-07 17:00 | XMS_ITS | Encounter Summary ---
Author Organization [facility] Address [facility] [place] [address] Care Team Providers Care Pen Tender Name Role Phone Carolina Munguia APRN Unavailable [phone] Jessica Hope MD Unavailable [phone] Shereen Smallwood PA-C Unavailable [phone] Radha Martinez RN Unavailable Amy Collier NP Primary Care Provider [phone] Source Comments In the event this information is protected by the Federal Confidentiality of Alcohol and Drug AbusePatient Records regulations: The Federal rules restrict any use of the information to criminally investigate or prosecute any alcohol or drug abuse patient.[facility] Reason for Visit * Auth/Cert (Routine) [...] LESION(S) 1 SESSION MULTI-SOURCE COBALT Anesthesia [address] [place] [address] Referral ID Status Reason Start Date Expiration Date Visits Re quested Visits Authorized [id number] 1 1 Encounter Details Date Type Department Care Team (Latest Contact Info) Description 10/07/2024 5:00 PM EDT Hospital Encounter Anesthesia [address] [place] [address] Carlos Mccain DO, PhD [address] [place] [address] 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] Social History Tobacco Use Types Packs/Day Years Used Date Smoking Tobacco: Never Passive Smoke Exposure: Never Smokeless Tobacco: Never Alcohol Use Standard Drinks/Week Comments Not Currently 0 (1 standard drink = 0.6 oz pur e alcohol) Occasional wine [facility] Utilities Answer Date Recorded In [...] No 08/29/2024 Housing Stability Vital Sign Answer Krisnha e Recorded In the last 12 months, was t here a time when you were not able to pay the mortgage or rent on time? No 08/29/2024 In the past 12 months, how m any times have you moved where you were living? 0 08/29/2024 At any time in the past 12 m [facility], were you homeless or living in a half-way (including now)? No 08/29/2024 Area Deprivation Index Answer Date Milton rded National Score (1-100), lower number is lower ri 82 07/21/2024 State Score (1-10), lower number is lower risk 7 07/21/2024 Data from: https://www.neighborhoodatlas.medicine.[facility].edu/. Last address used for calculation [address] [...] Info) Description 11/29/2024 10:20 AM EDT Appointment [facility] Radiology MRI [address] [place] [address] With Perfusion 12/01/2024 2:00 PM EDT [facility] Brain Tumor Center [address] [place] [address] Carlos Mccain DO, PhD [address] [facility] [address] [place] [address] Established patient Visit with Dr. Mccain for MRI review and follow up documented as of this encounter Visit Diagnoses Not on filedocumented in this encounter Care Teams Pen Tender Relationship Specialty Start Date End Date Amy Collier NP [address] [place] [address] PCP - General Family Medicine 09/27/24 Carolina Munguia APRN 57[address] [facility] [address] [place] [address] 12/04/23 Jessica Hope MD [address] [place] [address] Referring Hematology/Oncology 06/14/24 Shereen Smallwood PA-C [address] [facility] [address] [place] [address] [facility] Referring Orthopedics 06/15/24 [place] [address] [place] [address] Specialty Mobile Sales Consultant Hematology/Oncology 07/31/24 documented as of this encounter
--- OUTSIDE RECORDS SUMMARY | 2024-10-07 17:00 | XMS_ITS | Encounter Summary ---
Author Organization [facility] Address [facility] [place] [address] Care Team Providers Care Nuclear Medicine Supervisor Name Role Phone Carolina Munguia APRN Unavailable [phone] Jessica Hope MD Unavailable [phone] Shereen Smallwood PA-C Unavailable [phone] Radha Martinez RN Unavailable Amy Collier NP Primary Care Provider [phone] Source Comments In the event this information is protected by the Federal Confidentiality of Alcohol and Drug AbusePatient Records regulations: The Federal rules restrict any use of the information to criminally investigate or prosecute any alcohol or drug abuse patient.[facility] Reason for Visit * Auth/Cert (Routine) [...] LESION(S) 1 SESSION MULTI-SOURCE COBALT Anesthesia [address] [place] [address] Referral ID Status Reason Start Date Expiration Date Visits Re quested Visits Authorized [id number] 1 1 Encounter Details Date Type Department Care Team (Late st Contact Info) Description 10/07/2024 5:00 PM EDT - 10/07/2024 6:30 PM EDT Surgery Anesthesia [address] [address] Carlos Mccain DO, PhD [address] [place] [address] STEREOTACTIC RADIOSURGERY 1 COMPLEX CRANIAL LESION Social History Tobacco Use Types Packs/Day Years Used Date Smoking Tobacco: Never Passive Smoke Exposure: Never Smokeless Tobacco: Never Alcohol Use Standard Drinks/Week Comments Not Currently 0 (1 standard drink = 0.6 oz pur e alcohol) Occasional wine [facility] Utilities Answer Date Recorded In [...] any time in the past 12 m [facility], were you homeless or living in a halfway (including now)? No 08/29/2024 Area Deprivation Index Answer Date Milton rded National Score (1-100), lower number is lower ri 82 07/21/2024 State Score (1-10), lower number is lower risk 7 07/21/2024 Data from: https://www.neighborhoodatlas.medicine.[facility].edu/. Last address used for calculation [address] [...] Info) Description 11/29/2024 10:20 AM EDT Appointment [facility] Radiology MRI [address] [facility] [address] [place] [address] With Perfusion 12/01/2024 2:00 PM EDT [facility] Tumor Center [address] [place] [address] Carlos Mccain DO, PhD [address] [facility] [address] [place] [address] Established patient Visit with Dr. 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 documented in this encounter Care Teams Nuclear Medicine Supervisor Relationship Specialty Start Date End Date Amy Collier NP [address] [place] [address] PCP - General Family Medicine 09/27/24 Carolina Munguia APRN 57[address] [facility] [address] [address] 12/04/23 Jessica Hope MD [address] [place] [address] Referring Hematology/Oncology 06/14/24 Shereen Smallwood PA-C [address] [facility] [address] [place] [address] [place] [phone] (Work) Referring Orthopedics 06/15/24 [place] [address] [place] [id number] Specialty Environmental Health Specialist Hematology/Oncology 07/31/24 documented as of this encounter
--- OUTSIDE RECORDS SUMMARY | 2024-10-10 15:04 | XMS_ITS | Encounter Summary ---
Author Organization [facility] Address [facility]-[id number] [address] [place] [address] Care Team Providers Care Memorial Counselor Name Role Phone Amy Collier WATER OPERATOR-MAINTENANCE CONTROLLER Primary Care Provider + Reason for Visit * Reason Onset Date Comments PT Discharge 12/04/2023 Encounter Details Date Type Department Care Team (Late st Contact Info) Description 12/04/2023 [facility] [address] [place] [address] Christopher Joe MD [address] [place] [address] PT Discharge Social History Tobacco Use Types Packs/Day Years Used Date Smoking Tobacco: Never Smokeless Tobacco: Never Alcohol Use Standard Drinks/Week Comments Yes 0 (1 standard drink = 0.6 oz pur e alcohol) Socially [facility] Utilities Answer Date Recorded In the past 12 months has [employer], gas, oil, or water company threatened to [...] Recorded Do you need help finding a [facility] career center and/or a training program? No [...] was seen in consultation at [facility] She will not require a follow-up visit in our office, as she follows with [facility] group Thank you documented in this encounter Plan of Treatment Upcoming Encounters Date Type Department Care Team (Late st Contact Info) Description 10/12/2024 5:00 PM EDT Hospital Encounter [facility] Division [facility] - Surgery [address] [place] [address] Jhon Rosado MD [address], [address] [place] [address] 10/12/2024 5:00 PM EDT - 10/12/2024 6:15 PM EDT Surgery [facility] - Surgery [address] [place] [address] Jhon Rosado MD [address], [address] [place] [address] DEBRIDEMENT BREAST 10/26/2024 8:30 AM EDT Telephone Visit [facility] On[facility], A Department of [place] [address] 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
--- OUTSIDE RECORDS SUMMARY | 2024-10-10 15:05 | XMS_ITS | Encounter Summary ---
Author Organization [facility] Address [address] [place] [address] Care Team Providers Care Elevator Constructor Supervisor Name Role Phone Randy Lu MD Primary Care Provider [phone] Encounter Details Date Type Department Care Team (Late Contact Info) Description 04/19/2024 Abstract [facility] [place] [address] Evan Thompson DO [facility] [place], [facility] Social History Tobacco Use Types [...] 06/12/2025 10:00 AM EDT Office Visit [facility] [address] [place] [address] Evan Thompson DO [address] [place], [facility] documented as of this encounter Visit Diagnoses Not on filedocumented in this encounter Care Teams Elevator Constructor Supervisor Relationship Specialty Start Date End Date Randy Lu MD PCP - General Family Medicine 04/02/23 documented as of this encounter
--- OUTSIDE RECORDS SUMMARY | 2024-10-10 15:05 | XMS_ITS | Encounter Summary ---
Author Organization [facility] Address [facility]-[id number] [address] [place] [address] Care Team Providers Care Greaser And Oiler Name Role Phone Amy Collier CLAIMS ASSOCIATE-RACE BOARD ATTENDANT Primary Care Provider + Encounter Details Date Type Department Care Team (Late st Contact Info) Description 01/15/2024 Orders Only [facility] Infectious Disease [address] [facility] [address] [place] [address] External, Scanning Provider Social History Tobacco Use Types Packs/Day Years Used Date Smoking Tobacco: Never Smokeless Tobacco: Never Alcohol Use Standard Drinks/Week Comments Yes 0 (1 standard drink = 0.6 oz pur e alcohol) Socially [facility] Utilities Answer Date Recorded In the past 12 months has [employer] electric, gas, oil, or water company threatened [...] any clubs o r organizations such as voodoo groups, unions, fraternal or athletic groups, or [...] Answer Date Recorded Total Score 0 03/07/2022 [facility] of Occupat ional Health - Occupational Stress [...] Description 10/12/2024 5:00 PM EDT Hospital Encounter [facility] Division of [facility] - Surgery [address] [place] [address] Jhon Rosado MD [address], [facility] [address] [place] [address] 10/12/2024 5:00 PM EDT - 10/12/2024 6:15 PM EDT Surgery [facility] Division of [facility] - Surgery [address] [place] [address] Jhon Rosado MD [address], [facility] [address] [place] [address] DEBRIDEMENT BREAST 10/26/2024 8:30 AM EDT Telephone Visit [facility] Gynecology Oncology, A Department of [place] [address] [facility] [address] [place] [address] [place] [address] [place] [address], [address] [place] [address] Scheduled Procedures Name Priority Associated Diagnoses Date/Ti me DEBRIDEMENT BREAST BREAST WOUND LEFT 10/12/2024 5:00 PM EDT documented as of this encounter Procedures Procedure Name Priority Date/Time Associated Diagnosis Comments PLATELET COUNT Routine 01/14/2024 WBC Routine 01/14/2024 CREATININE, SERUM Routine 01/14/2024 documented in this encounter Results * Platelet count (01/14/2024) External Platelet Count 181 MANUALLY TRANSCRIBED RESULTS Blood 01/14/2024 us Scanning Provider External LAB BLOOD ORDERABLES Final Result Performing Organization Address [facility] de Phone Number MANUALLY TRANSCRIBED RESULTS * (ABNORMAL) WBC (01/14/2024) External Wbc Count 3.8(A) 4.0 - 11.0 MANUALLY TRANSCRIBED RESULTS Blood 01/14/2024 us Scanning Provider External LAB BLOOD ORDERABLES Final Result Performing Organization Address [facility] de Phone Number MANUALLY TRANSCRIBED RESULTS * (ABNORMAL) Creatinine includes GFR, serum (01/14/2024) External Creatinine 1.12(A) 0.55 - 1.02 MANUALLY TRANSCRIBED RESULTS Blood 01/14/2024 us Scanning Provider External LAB BLOOD ORDERABLES Final Result Performing Organization Address 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 [address] [place] [address] PCP - General 11/28/16 documented as of this encounter
--- OUTSIDE RECORDS SUMMARY | 2024-10-10 15:05 | XMS_ITS | Encounter Summary ---
Author Organization [facility] Address [facility]-[id number] [address] [place] [address] Care Team Providers Care Flame Brazing Machine Operator Name Role Phone Amy Collier E COMMERCE DIRECTOR-SKIDWAY MAN Primary Care Provider + Encounter Details Date Type Department Care Team (Late st Contact Info) Description 09/20/2024 [facility]phone [facility] - Family Medicine [address] [place] [address] Susan Horton CMA Social History Tobacco Use Types Packs/Day Years Used Date Smoking Tobacco: Never Passive Smoke Exposure: Past Smokeless Tobacco: Never Alcohol Use Standard Drinks/Week Comments Not Currently 0 (1 standard drink = 0.6 oz pur e alcohol) [facility] Utilities Answer Date Recorded In the past 12 months has [employer] electric, gas, oil, or water company threatened [...] often do you attend chur ch or adventism services? More than 4 times per year [...] Answer Date Recorded Total Score 0 08/10/2024 [facility] [place] of Occupat ional Health - Occupational Stress [...] encounter Miscellaneous Notes * Telephone Encounter - Susan Horton CMA - 09/20/2024 10:30 AM EDT Patient called and stated she is suffering with more anxiety than usual and would like something called in to [facility] in [place]. * Telephone Encounter - AMEENA Garcia - 09/20/2024 10:30 AM EDT Is she having anxiety and panic where she needs something as needed or more of a daily, terminal carman anxiety medication? * Telephone Encounter - Susan Horton CMA - 09/20/2024 10:30 AM EDT Patient would like terminal carman medication. * Telephone Encounter - AMEENA Garcia - 09/20/2024 10:30 AM EDT I sent her in zoloft 50mg daily - she should expect mild improvement in about 30 days - full effectin 8 wks - she can go up with dose if needed she should let me know * Telephone Encounter - Susan Horton CMA - 09/20/2024 10:30 AM EDT Patient notified documented in this encounter Plan of Treatment Upcoming Encounters Date Type Department Care Team (Late st Contact Info) Description 10/12/2024 5:00 PM EDT Hospital Encounter [facility] Surgery [address] [place] [address] Jhon Rosado MD [address] [facility], [facility] [address] [place] [address] 10/12/2024 5:00 PM EDT - 10/12/2024 6:15 PM EDT Surgery [facility] Division [facility] - Surgery [address] [place] [address] Jhon Rosado MD [address], [facility] [address] [place] [address] DEBRIDEMENT BREAST 10/26/2024 8:30 AM EDT Telephone Visit [facility] Gynecology Oncology, A Department [facility] [address] [place] [address] [place] [address] [place] [address], [address] [place] [address] Scheduled Procedures Name Priority Associated Diagnoses Date/Ti me DEBRIDEMENT BREAST BREAST WOUND LEFT 10/12/2024 5:00 PM EDT documented as of this encounter Goals Goal Patient Goal Type Associated Problems Recent Progress Patient-Stated? 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
--- OUTSIDE RECORDS SUMMARY | 2024-10-10 15:05 | XMS_ITS | Encounter Summary ---
Author Organization [facility] tem Address [id number] [address] [place] [address] Care Team Providers Care Carton Marker Machine Name Role Phone Amy Collier JOINER APPRENTICE-INDUSTRIAL GAS SERVICE HELPER Primary Care Provider + Encounter Details Date Type Department Care Team (Late st Contact Info) Description 06/16/2024 Orders Only [facility] Division of [facility] - Interventional Radiology [address] [place] [phone] Guillaume Curiel MD [address] [place] [address] [address] [place] [address] Liver lesion (Primary Dx) Social History Tobacco Use Types Packs/Day Years Used Date Smoking Tobacco: Never Passive Smoke Exposure: Past Smokeless Tobacco: Never Alcohol Use Standard Drinks/Week Comments Yes 0 (1 standard drink = 0.6 oz pur e alcohol) Socially [facility] Utilities Answer Date Recorded In the past 12 months has [employer], gas, oil, or water company threatened to [...] often do you attend chur ch or roman catholic services? More than 4 [...] Answer Date Recorded Total Score 2 03/30/2024 [facility] - Occupational Stress Questionnaire Answer [...] Recorded Do you need help finding a [facility] career [facility] and/or a training program? [...] Description 10/12/2024 5:00 PM EDT Hospital Encounter [facility] - Surgery [address] [place] [address] Jhon Rosado MD [address], [facility] [address] [place] [address] 10/12/2024 5:00 PM EDT - 10/12/2024 6:15 PM EDT Surgery [facility] Division [facility] Surgery [address] [place] [address] Jhon Rosado MD [address], [facility] [address] [facility] [place] [address] DEBRIDEMENT BREAST 10/26/2024 8:30 AM EDT Telephone Visit [facility] Gynecology Oncology, A Department of [place] [address] [facility] [place] [address] [place] [address] [place] [address], [address] [place] [address] Scheduled Procedures Name Priority Associated Diagnoses Date/Ti me DEBRIDEMENT BREAST BREAST WOUND LEFT 10/12/2024 5:00 PM EDT documented as of this encounter Goals Goal Patient Goal Type Associated Problems Recent Progress Patient-Stated? 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
--- OUTSIDE RECORDS SUMMARY | 2024-10-10 15:05 | XMS_ITS | Clinical Summary ---
Author Organization [facility] Address [address] [place] [address] Care Team Providers Care Financial Aid Coordinator Name Role Phone Randy Lu MD Primary Care Provider [phone] Allergies Active Allergy Reactions Criticality Noted Date [...] Encounters Date Type Department Care Team Description 2024 Abstract [facility] [address] [place] [phone] Evan Thompson DO from Last 3 Months Family History * [...] Description 06/12/2025 10:00 AM EDT Office Visit [facility] [address] [place] [address] Evan Thompson DO [address] [place] [address] Health Maintenance Due Date Last Done Comments CT Colonography 1970 Colonoscopy 1970 FIT 1970 FOBT 1970 Sigmoidoscopy 1970 Colorectal Cancer Screening 06/06/2024 FIT-DNA 06/06/2024 06/06/2021 Mammogram 10/15/2024 10/16/2023, 03/0 10/2023, 12/27/2021, Additional history exists Influenza Vaccine (#1) 2024 , 11/14/2019, 12/13/2018, Additional history exists Pap Smear 06/02/2027 06/01/2024, 06/01/2023, 12/01 Cervical Cancer Screening 05/31/2028 HPV/Cotest 05/31/2028 Procedures Procedure Name Priority Date/Time Associated Diagnosis Comments PAP SMEAR Routine 06/01/2024 12:00 AM EDT BI MAMMOGRAM SCREENING BILATERAL Routine 12/27/2021 12:00 PM EDT from Last 3 Months or Most Recently Relevant to Health Maintenance Results * Pap Smear (06/01/2024 12:00 AM EDT) Swab Cervical swab / Unknown us Jay Nurse [facility] LAB CYTOLOGY ORDERABLES Final Result EXTERNAL LAB * Bilateral screening mammogram (12/27/2021 12:00 PM EDT) Anatomical Region Laterality Modality Breast Bilateral Mammography Narrative 12/27/2021 12:00 PM EDT PERFORMED AT [facility] LOCATION:[id number] Procedure Note CONVERSION, GENERIC - 09/05/2022 PERFORMED AT [facility] LOCATION:[id number] us Bo Melendez MD IMG BI PROCEDURES Final Resul t from Last 3 Months or Most Recently Relevant to Health Maintenance Insurance [employer] MEDICAID Care Teams Financial Aid Coordinator Relationship Specialty Start Date End Date Randy Lu MD PCP - General Family Medicine 04/02/23
--- OUTSIDE RECORDS SUMMARY | 2024-10-10 15:05 | XMS_ITS | Encounter Summary ---
Author Organization [facility] Address [id number] [address] [place] [address] Care Team Providers Care Product Manufacturing Professional Name Role Phone Amy Collier PANTOGRAPH MACHINE OPERATOR-STAPLE SIDE LASTER Primary Care Provider + Encounter Details Date Type Department Care Team (Late st Contact Info) Description 05/23/2024 Orders Only [facility] Internal Medicine - Family Medicine [address] [place] [phone] Ref Prov, [place] [address] Social History Tobacco Use Types Packs/Day Years [...] Answer Date Recorded Total Score 2 03/30/2024 [facility] of Occupat ional Health - [...] Recorded Do you need help finding a [facility] and/or a training [...] Description 10/12/2024 5:00 PM EDT Hospital Encounter [facility] Division [facility] - Surgery [address] [place] [address] Jhon Rosado MD [address], [facility] [address] [place] [address] 10/12/2024 5:00 PM EDT - 10/12/2024 6:15 PM EDT Surgery [facility] - Surgery [address] [place] [address] Jhon Rosado MD [address], [facility] [address] [place] [address] DEBRIDEMENT BREAST 10/26/2024 8:30 AM EDT Telephone Visit [facility] Gynecology Oncology, A Department of [place] [address] [facility] [address] [place] [address] Raymond Sepulveda MD [address] [facility], [address] [place] [address] Scheduled Procedures Name Priority Associated Diagnoses Date/Ti me DEBRIDEMENT BREAST BREAST WOUND LEFT 10/12/2024 5:00 PM EDT documented as of this encounter Goals Goal Patient Goal Type Associated Problems Recent Progress Patient-Stated? 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
--- OUTSIDE RECORDS SUMMARY | 2024-10-10 15:05 | XMS_ITS | Encounter Summary ---
Author Organization [employer] Sys tem Address [id number] [address] [place] [address] Care Team Providers Care Desktop Engineer Name Role Phone Amy Collier HOUSEHOLD PERSONAL ASSISTANT-HEALTH TEACHER Primary Care Provider + Encounter Details Date Type Department Care Team (Late st Contact Info) Description 09/16/2024 Telephone [facility]astic [facility] [address] [facility] [address] [place] [address] Irvin Apodaca MA Social History Tobacco Use Types Packs/Day Years Used Date Smoking Tobacco: Never Passive Smoke Exposure: Past Smokeless Tobacco: Never Alcohol Use Standard Drinks/Week Comments Not Currently 0 (1 standard drink = 0.6 oz pur e alcohol) [facility] Utilities Answer Date Recorded In the past 12 months has [employer] electric, gas, oil, or water company threatened [...] any clubs o r organizations such as spiritism groups, unions, fraternal or athletic groups, or [...] Answer Date Recorded Total Score 0 08/10/2024 [facility] [place] of Occupat ional Health - Occupational Stress [...] Recorded Do you need help finding a [facility] and/or a training program? [...] encounter Miscellaneous Notes * Telephone Encounter - Irvin Apodaca MA - 09/16/2024 9:49 AM EDT Patient had appt with [facility] Hematology/Oncology today 09/16. She wanted to make you awareshe had an excision of right breast on 08/30 and says path reports shows cancer. This report and ov notes can be viewed in her chart. * Telephone Encounter - AMEENA Kennedy - 09/16/2024 9:49 AM EDT Thank you for the update! documented in this encounter Plan of Treatment Upcoming Encounters Date Type Department Care Team (Late st Contact Info) Description 10/12/2024 5:00 PM EDT Hospital Encounter [facility] - Surgery [address] [place] [address] Jhon Rosado MD [address], [place] [address] [place] [address] 10/12/2024 5:00 PM EDT - 10/12/2024 6:15 PM EDT Surgery [facility] - Surgery [address] [place] [phone] Jhon Rosado MD [address] [facility] [address] [address] [place] [address] DEBRIDEMENT BREAST 10/26/2024 8:30 AM EDT Telephone Visit [facility] Gynecology Oncology, A Department of [facility] [address] [facility] [address] [place] [address] Raymond Sepulveda MD [address] [facility], [address] [place] [address] Scheduled Procedures Name Priority Associated Diagnoses Date/Ti me DEBRIDEMENT BREAST BREAST WOUND LEFT 10/12/2024 5:00 PM EDT documented as of this encounter Goals Goal Patient Goal Type Associated Problems Recent Progress Patient-Stated? 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
--- OUTSIDE RECORDS SUMMARY | 2024-10-10 15:05 | XMS_ITS | Encounter Summary ---
Author Organization [facility] Address [id number] [address] [place] [address] Care Team Providers Care Document Control Specialist Name Role Phone Amy Collier HEALTH CARE LAW SPECIALIST-CHUCKING MACHINE OPERATOR Primary Care Provider + Encounter Details Date Type Department Care Team (Late st Contact Info) Description 12/22/2023 Orders Only [facility] Infectious Disease [address] [facility] [address] [place] [address] External, Scanning Provider Social History Tobacco Use Types Packs/Day Years Used Date Smoking Tobacco: Never Smokeless Tobacco: Never Alcohol Use Standard Drinks/Week Comments Yes 0 (1 standard drink = 0.6 oz pur e alcohol) Socially [facility] Utilities Answer Date Recorded In the past 12 months has [employer] electric, gas, oil, or water company threatened [...] Answer Date Recorded Total Score 0 03/07/2022 [facility] [place] of Occupat ional Health - Occupational Stress [...] Description 10/12/2024 5:00 PM EDT Hospital Encounter [facility] Division of [facility] - Surgery [address] [place] [phone] Jhon Rosado MD [address], [facility] [address] [place] [address] 10/12/2024 5:00 PM EDT - 10/12/2024 6:15 PM EDT Surgery [facility] Division of [facility] - Surgery [address] [place] [address] Jhon Rosado MD [address], [facility] [address] [place] [address] DEBRIDEMENT BREAST 10/26/2024 8:30 AM EDT Telephone Visit [facility] Gynecology Oncology, A Department of [place] [address] [facility] [address] [place] [address] [place] [address] [place] [address], [address] [place] [address] Scheduled Procedures Name Priority Associated Diagnoses Date/Ti me DEBRIDEMENT BREAST BREAST WOUND LEFT 10/12/2024 5:00 PM EDT documented as of this encounter Procedures Procedure Name Priority Date/Time Associated Diagnosis Comments PLATELET COUNT Routine 12/17/2023 WBC Routine 12/17/2023 LIVER PANEL Routine 12/17/2023 CREATININE, SERUM Routine 12/10/2023 documented in this encounter Results * Liver panel (12/17/2023) Pathologist [facility] External Albumin 3.0 MAN UALLY TRANSCRIBED RESULTS [...] BLOOD ORDERABLES Final Result Performing Organization Address City/[facility] Co de Phone Number MANUALLY TRANSCRIBED RESULTS * Platelet count (12/17/2023) Pathologist [facility] External Platelet Count 280 150 - 450 MANUALLY TRANSCRIBED RESULTS Blood 12/17/2023 us Scanning Provider External LAB BLOOD ORDERABLES Final Result Performing Organization Address City/[facility] Co de Phone Number MANUALLY TRANSCRIBED RESULTS * WBC (12/17/2023) Pathologist [facility] External Wbc Count 5.4 4.0 - 11.0 MANUALLY TRANSCRIBED RESULTS Blood 12/17/2023 us Scanning Provider External LAB BLOOD ORDERABLES Final Result Performing Organization Address City/[facility] Co de Phone Number MANUALLY TRANSCRIBED RESULTS * (ABNORMAL) Creatinine includes GFR, serum (12/10/2023) Pathologist [facility] External Creatinine 1.50(A) 0.55 - 1.02 MANUALLY TRANSCRIBED RESULTS Blood 12/10/2023 us Scanning Provider External LAB BLOOD ORDERABLES Final Result MANUALLY TRANSCRIBED RESULTS documented in this encounter Visit Diagnoses Not on filedocumented in this encounter Additional Health Concerns Infection Onset Date Last Indicated Resolved Time SATELLITE MANAGER Comment:LT CHEST WALL TISSUE(08/12/24) 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
--- OUTSIDE RECORDS SUMMARY | 2024-10-10 15:05 | XMS_ITS | Encounter Summary ---
Author Organization [employer] Address [id number] [address] [place] [address] Care Team Providers Care Steam Trap Worker Name Role Phone Amy Collier SALES RESEARCH ANALYST-SUPERVISING FILM OR VIDEOTAPE EDITOR Primary Care Provider + Encounter Details Date Type Department Care Team (Late st Contact Info) Description 01/18/2024 Telephone [facility] [address] [facility] [address] [place] [address] Shy Bob MA Social History Tobacco Use Types Packs/Day Years Used Date Smoking Tobacco: Never Smokeless Tobacco: Never Alcohol Use Standard Drinks/Week Comments Yes 0 (1 standard drink = 0.6 oz pur e alcohol) Socially [facility] Utilities Answer Date Recorded In the past 12 months has [employer] electric, gas, oil, or water company [...] Answer Date Recorded Total Score 0 03/07/2022 [facility] [place] of Occupat ional Health - Occupational Stress [...] patient is being followed and managed by [facility] ID - please fax results to them ----- Message ----- From: Shy Bob MA Sent: 01/15/2024 9:18 AM EST To: AMEENA Salazar * Telephone Encounter - Shy Bob MA - 01/18/2024 12:55 PM EST Results faxed. documented in this encounter Plan of Treatment Upcoming Encounters Date Type Department Care Team (Late st Contact Info) Description 10/12/2024 5:00 PM EDT Hospital Encounter [facility] Division of [facility] - Surgery [address] [place] [address] Jhon Rosado MD [address], [facility] [address] [place] [address] 10/12/2024 5:00 PM EDT - 10/12/2024 6:15 PM EDT Surgery [facility] Division of [facility] - Surgery [address] [place] [address] Jhon Rosado MD [address], [address] [place] [address] DEBRIDEMENT BREAST 10/26/2024 8:30 AM EDT Telephone Visit [facility] Gynecology Oncology, Department of [facility] [address] [facility] [address] [place] [address] Raymond Sepulveda MD [address] [facility], [address] [place] [address] Scheduled Procedures Name Priority Associated Diagnoses Date/Ti me DEBRIDEMENT BREAST BREAST WOUND LEFT 10/12/2024 5:00 PM EDT documented as of this encounter Visit Diagnoses Not on filedocumented in this encounter Additional Health Concerns Infection Onset Date Last Indicated Resolved Time SUPPLY ASSISTANT Comment:LT CHEST WALL TISSUE(08/12/24) 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
--- OUTSIDE RECORDS SUMMARY | 2024-10-10 15:05 | XMS_ITS | Encounter Summary ---
Author Organization [facility] Sys [employer] Address [id number] [address] [place] [address] Care Team Providers Care Spa Technician Name Role Phone Emelia Collier RETAIL SHIFT LEADER-IMPROVEMENT MANAGER Primary Care Provider + Reason for Visit * Reason Onset Date Comments Transition Of Care 08/02/2024 Encounter Details Date Type Department Care Team (Late st Contact Info) Description 08/02/2024 Telephone [facility] Physicians [facility] [address] [place] [address] Joelle Betancourt, assistant infant teacher Of Care Social History Tobacco Use Types [...] any clubs o r organizations such as jainism groups, unions, fraternal [...] Answer Date Recorded Total Score 0 07/14/2024 [facility] of Occupat ional Health - [...] Recorded Do you need help finding a [facility] career center and/or a training program? No [...] Specialty: Infectious Disease *Name of Discharging Facility: [facility]. Date of Facility Discharge: 07.27-07.29.24 Date of Interactive Contact and Name of Frame Polisher: 08.02.24 [id number] spoke with patient. *Medication Review Completed: No START taking: acetaminophen (TYLENOL) diazePAM (VALIUM) docusate sodium (COLACE) oxyCODONE (ROXICODONE) STOP taking: anastrozole 1 mg chemo tablet (ARIMIDEX) VERZENIO 150 mg chemo tablet (abemaciclib) Medication Reconciliation Questions/Concerns: Discussed new medication with patient. States she has medication and is taking as ordered. *Follow Up Appointments with Providers: Primary: EMELIA COLLIER APRN-ESPERANZA [phone] TBD Specialty: 08.03.24 [address] [facility] Plastic [facility] Reconstructive Surgery Specialty: 08.16.24 [address] [facility] Infectious Disease - [place], Herman, DO Review [...] Description 10/12/2024 5:00 PM EDT Hospital Encounter [facility] - Surgery [address] [place] [address] Jhon Rosado MD [address], [facility] [address] [place] [address] 10/12/2024 5:00 PM EDT - 10/12/2024 6:15 PM EDT Surgery [facility] - Surgery [address] [place] [address] Jhon Rosado MD [address], [facility] [address] [place] [address] DEBRIDEMENT BREAST 10/26/2024 8:30 AM EDT Telephone Visit [facility] On[facility], A Department of [address] [place] [address] Raymond Sepulveda MD [address] [facility], [address] [place] [address] Scheduled Procedures Name Priority Associated Diagnoses Date/Ti me DEBRIDEMENT BREAST BREAST WOUND LEFT 10/12/2024 5:00 PM EDT documented as of this encounter Goals Goal Patient Goal Type Associated Problems Recent Progress Patient-Stated? 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
--- OUTSIDE RECORDS SUMMARY | 2024-10-10 15:05 | XMS_ITS | Clinical Summary ---
Author Organization [facility] Address [address] [place] [address] Care Team Providers Care Cooler Deliverer Name Role Phone Phys, Not On File Primary Care Provider Jhon Rodarte MD Unavailable Social History Tobacco Use Types Packs/Day Years Used Date Smoking Tobacco: Never Assessed Comments Unknown Sex and Gender Information Value Date Recorded Sex Assigned at Not on file Legal Sex Female 2:31 PM EDT Gender Identity Not on file Sexual Orientation Not on file Plan of Treatment Health Maintenance Due Date Last Done Comments Cologuard (average risk only) 1970 Colonoscopy 1970 Colorectal Cancer Screening 1970 FIT (average risk only) 1970 Hepatitis C Screening 1970 Alternating Mammogram/MRI 1982 DTaP,Tdap,and Td Vaccines (1 - Tdap) 1989 Hepatitis B Vaccine ages 19 years and older (1 of 3 - 19+ 3-dose series) 1989 Breast Cancer Screening 1990 Mammogram 1990 Cervical Cancer Screening: Cytology 10/11/1991 Pneumococcal Vaccines 50year s + (1 of 1 - PCV) 2020 Zoster Recombinant Vaccines (1 of 2) 2020 COVID-19 Vaccine ( - 2023-2 5 season) 2023 Influenza Vaccine (#1) 2024 Respiratory Syncytial Virus (RSV) or ages 60 years and older (1 - 1-dose 75+ series) 2045 Respiratory Syncytial Virus (RSV) ages 0 thru 19 months Aged Out No longer eligible based on patient's age to complete this topic Care Teams Cooler Deliverer Relationship Specialty Start Date End Date Phys, Not On File PCP - General 12/08/23 Jhon Rosado MD [address] [facility] [address] [place] [phone] General Surgery 12/08/23
--- OUTSIDE RECORDS SUMMARY | 2024-10-10 15:05 | XMS_ITS | Encounter Summary ---
Author Organization [employer] Sys [employer] Address [id number] [address] [place] [address] Care Team Providers Care Top Distribution Executive Name Role Phone Amy Collier NURSING ASSOCIATE-TEAM GUIDE Primary Care Provider + Encounter Details Date Type Department Care Team (Late st Contact Info) Description 11/30/2023 [facility] [address] [facility] [address] [place] [address] Shy Bob MA Social History Tobacco Use Types Packs/Day Years Used Date Smoking Tobacco: Never Smokeless Tobacco: Never Alcohol Use Standard Drinks/Week Comments Yes 0 (1 standard drink = 0.6 oz pur e alcohol) Socially [facility] Utilities Answer Date Recorded In the past 12 months has [employer] electric, gas, oil, or water company threatened [...] any clubs o r organizations such as sikhism groups, unions, fraternal or athletic groups, or [...] Answer Date Recorded Total Score 0 03/07/2022 [facility] of Occupat ional Health - Occupational Stress [...] 11/28/2023 2:45 PM EDT ----- Please arrange [facility] follow-up appointment. She will need to be seen on her before December 09. Discharging home with chest port in place, IV daptomycin and ertapenem field service supervisor is currently working on arranging home healthcare [...] Description 10/12/2024 5:00 PM EDT Hospital Encounter [facility] Division of [facility] - Surgery [address] [place] [address] Jhon Rosado MD [address] , [address] [place] [address] 10/12/2024 5:00 PM EDT - 10/12/2024 6:15 PM EDT Surgery [facility] Division of [facility] - Surgery [address] [place] [address] Jhon Rosado MD [address], [address] [facility] [place] [address] DEBRIDEMENT BREAST 10/26/2024 8:30 AM EDT Telephone Visit [facility] Gynecology Oncology, Department of [facility] [address] [place] [address] [place] [address] [place] [address], [address] [place] [address] Scheduled Procedures Name Priority Associated Diagnoses Date/Ti me DEBRIDEMENT BREAST BREAST WOUND LEFT 10/12/2024 5:00 PM EDT documented as of this encounter Visit Diagnoses Not on filedocumented in this encounter Additional Health Concerns Infection Onset Date Last Indicated Resolved Time TELEVISION NEWS ANCHOR Comment:LT CHEST WALL TISSUE(08/12/24) 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
--- OUTSIDE RECORDS SUMMARY | 2024-10-10 15:05 | XMS_ITS | Encounter Summary ---
Author Organization [employer] Address [id number] [address] [place] [address] Care Team Providers Care Plant Maintenance Mechanic Name Role Phone Amy Collier PAN TANK WORKER-JACQUARD LACE WEAVER Primary Care Provider + Encounter Details Date Type Department Care Team (Late st Contact Info) Description 12/02/2023 Telephone [facility] Infectious Disease [address] [facility] [address] [place] [address] Shy Bob MA Social History Tobacco Use Types Packs/Day Years Used Date Smoking Tobacco: Never Smokeless Tobacco: Never Alcohol Use Standard Drinks/Week Comments Yes 0 (1 standard drink = 0.6 oz pur e alcohol) Socially [facility] Utilities Answer Date Recorded In the past 12 months has [employer] electric, gas, oil, or water company threatened [...] Answer Date Recorded Total Score 0 03/07/2022 [facility] of Occupat ional Health - Occupational Stress [...] outpatient referral A new outpatient referral for [facility] infectious Disease was placed for this patientwhile she was hospitalized. According to the shoe planner they called to make appointment and was told [facility]. Patient has not heard anything from them. 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 Can someone please reach out to [facility] and see if we can get [...] referral I would like referrals sent to [facility] and [facility] as well. I will place in [facility] ----- Message ----- From: Nabila Mora CMA Sent: 12/02/2023 3:11 PM EDT To: AMEENA Gomez; # Subject: RE: outpatient referral Wendy philip, Referrals to [facility] & [facility] take 7-10 business days to [...] outpatient referral A new outpatient referral for [facility] infectious Disease was placed for this patientwhile she was hospitalized. According to the shoe planner they called to make appointment and was told that [facility]. Patient has not heard anything from them. 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 Can someone please reach out to [facility] and see if we can get her an appointment next week? The referral is in [facility]. Thank you. Adding Leelee smith awareness * Telephone Encounter - Shy Bob MA - 12/02/2023 3:08 PM EDT Referral faxed to [facility]. They are scheduling for December/January, if they have any cancellations they will call patient. Faxed referral to [phone] * Telephone Encounter - Nabila Mora CMA - 12/02/2023 3:08 PM EDT Referral & copy of insurance card faxed to [facility] as well & I called personally to [facility] ([phone]) to place urgent referral-- spoke to Paul [...] the patient to schedule. Copy of paper [facility] referral form will be scanned into media. * Telephone Encounter - Shy Bob MA - 12/02/2023 3:08 PM EDT [facility] is not able to see patient due to insurance out of network. Patient was notified per [facility]. * Telephone Encounter - AMEENA Vallejo - 12/02/2023 3:08 PM EDT I spoke with patient and she would like referral to [facility]. I am placing in [facility] now. Thanks for your help on this! * Telephone Encounter - Nabila Mora CMA - 12/02/2023 3:08 PM EDT [facility] requires their own form to be completed-- I have printed this off, and it does also require a signature as well--placed on etrigg's desk. Refer a patient by paper form Fill out and fax the referral form and clinical documentation to: For referrals to [facility], fax to [phone]. For referrals to the [facility], fax to [phone]. After we have received your fax, we will contact your patient directly to schedule a convenient time and location for his or her appointment. We will send you confirmation of your patient???s appointment for your records. For referrals to [facility], fax to [phone]. If urgent, after faxing, call [phone] to expedite cut order hand. For referrals to the [facility] and [facility], fax to [phone]. If urgent, call [facility] at to expedite. * Telephone Encounter - Shy Bob MA - 12/02/2023 3:08 PM EDT Referral signed and faxed. * Telephone Encounter - Shy Bob MA - 12/02/2023 3:08 PM EDT ----- Message from AMEENA Vallejo sent at 12/08/2023 10:37 AM EDT ----- Regarding: RE: outpatient referral Can we please send referral to [facility] ID physician Dr. Cortez [place]. I will put order in. Dr. Noguera would like her to be seen as soon as possible. Thx. ----- Message ----- From: Nabila Mora CMA Sent: 12/02/2023 3:11 PM EDT To: AMEENA Gomez; # Subject: RE: outpatient referral Wendy philip, Referrals to [facility] & [facility] take 7-10 business days to [...] outpatient referral A new outpatient referral for [facility] infectious Disease was placed for this patientwhile she was hospitalized. According to the shoe planner they called to make appointment and was told that [facility]. Patient has not heard anything from them. 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 Can someone please reach out to [facility] and see if we can get [...] Description 10/12/2024 5:00 PM EDT Hospital Encounter [facility] - Surgery [address] [place] [address] Jhon Rosado MD [address], [address] [place] [address] 10/12/2024 5:00 PM EDT - 10/12/2024 6:15 PM EDT Surgery [facility] - Surgery [address] [address] Jhon Rosado MD [address], [address] [place] [address] DEBRIDEMENT BREAST 10/26/2024 8:30 AM EDT Telephone Visit [facility] Gynecology Oncology, A Department of [facility] [address] [place] [address] Raymond Sepulveda MD [address] [facility], [address] [place] [address] Scheduled Procedures Name Priority Associated Diagnoses Date/Ti me DEBRIDEMENT BREAST BREAST WOUND LEFT 10/12/2024 5:00 PM EDT documented as of this encounter Visit Diagnoses Not on filedocumented in this encounter Additional Health Concerns Infection Onset Date Last Indicated Resolved Time WANT AD RECEIVER Comment:LT CHEST WALL TISSUE(08/12/24) 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
--- OUTSIDE RECORDS SUMMARY | 2024-10-10 15:05 | XMS_ITS | Encounter Summary ---
Author Organization [facility] Address [address] [place] [address] Care Team Providers Care Ap Processor Name Role Phone Randy Lu MD Primary Care Provider [phone] Encounter Details Date Type Department Care Team (Late Contact Info) Description 06/07/2024 Orders Only [facility] [address] [email or web address] [address] Nahomy Watson LPN [address] [place] [facility] Social History Tobacco Use Types Packs/Day [...] Office Visit [facility] [address] [email or web address] [address] Evan Thompson DO [address] [facility] documented as of this encounter Procedures Procedure Name Priority Date/Time Associated Diagnosis Comments PAP SMEAR Routine 06/01/2024 12:00 AM EDT documented in this encounter Results * Pap Smear (06/01/2024 12:00 AM EDT) Swab Cervical swab / Unknown Jay [facility] LAB CYTOLOGY ORDERABLES Final Result EXTERNAL LAB documented in this encounter Visit Diagnoses Not on filedocumented in this encounter Care Teams Ap Processor Relationship Specialty Start Date End Date Randy Lu MD PCP - General Family Medicine 04/02/23 documented as of this encounter
--- OUTSIDE RECORDS SUMMARY | 2024-10-10 15:05 | XMS_ITS | Encounter Summary ---
Author Organization [facility] [facility] [employer] Address [id number] [address] [place] [address] Care Team Providers Care Pipelines Supervisor Name Role Phone Amy Collier WATER RECLAMATION SYSTEMS OPERATOR-OTR TRUCK DRIVER Primary Care Provider + Encounter Details Date Type Department Care Team (Late st Contact Info) Description 05/24/2024 Orders Only [facility] Internal [facility] - Family Medicine [address] [place] [address] Ref Prov, [place] [address] Social History Tobacco Use Types Packs/Day Years [...] Answer Date Recorded Total Score 2 03/30/2024 [employer] of Occupat ional Health - Occupational Stress [...] Recorded Do you need help finding a [facility] and/or a training program? [...] Description 10/12/2024 5:00 PM EDT Hospital Encounter [facility] - Surgery [address] [place] [address] Jhon Rosado MD [address], [facility] [address] [place] [address] 10/12/2024 5:00 PM EDT - 10/12/2024 6:15 PM EDT Surgery [facility] - Surgery [address] [place] [address] Jhon Rosado MD [address], [facility] [address] [place] [address] DEBRIDEMENT BREAST 10/26/2024 8:30 AM EDT Telephone Visit [facility] Gynecology Oncology, A Department of [place] [address] [facility] [address] [place] [address] Raymond Sepulveda MD [address] [facility], [address] [place] [address] Scheduled Procedures Name Priority Associated Diagnoses Date/Ti me DEBRIDEMENT BREAST BREAST WOUND LEFT 10/12/2024 5:00 PM EDT documented as of this encounter Goals Goal Patient Goal Type Associated Problems Recent Progress Patient-Stated? 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
--- OUTSIDE RECORDS SUMMARY | 2024-10-10 15:05 | XMS_ITS | Encounter Summary ---
Author Organization [facility] tem Address [facility]-[id number] [address] [place] [address] Care Team Providers Care Solar Panel Installation Supervisor Name Role Phone Amy Collier MARKETING LEAD-LANDSCAPE SUPERVISOR Primary Care Provider + Reason for Referral * Diagnostic Imaging (Routine) - Closed Specialty Diagnoses / Procedures Referred By Contac t Referred To Contact Radiology Diagnoses Liver lesion Procedures IR percutaneous biopsy liver Guillaume Curiel MD [address] [place] [address] [place] [address] Phone: tel: fax: Referral ID Status Reason Start Date Expiration Date Visits Re quested Visits Authorized [id number] Closed 1 1 Encounter Details Date Type Department Care Team (Late st Contact Info) Description 07/06/2024 Orders Only [facility] - Interventional Radiology [address] [place] [address] Guillaume Curiel MD [address] [place] [address] [place] [address] Liver lesion (Primary Dx) Social History Tobacco Use Types Packs/Day Years Used Date Smoking Tobacco: Never Passive Smoke Exposure: Past Smokeless Tobacco: Never Alcohol Use Standard Drinks/Week Comments Yes 0 (1 standard drink = 0.6 oz pur e alcohol) Socially AHC Utilities Answer Date Recorded In the past 12 months has [employer] electric, gas, oil, or water company threatened [...] any clubs o r organizations such as moravian groups, unions, fraternal or athletic groups, or [...] [facility] of Occupat ionnv Health - Occupational Stress Questionnaire Answer Date [...] 10/12/2024 5:00 PM EDT Hospital Encounter [facility] - Surgery [address] [place] [address] Jhon Rsoado MD [address], [facility] [address] [place] [address] 10/12/2024 5:00 PM EDT - 10/12/2024 6:15 PM EDT Surgery [facility] - Surgery [address] [place] [address] Jhon Rosado MD [address] [facility] [place] [address] DEBRIDEMENT BREAST 10/26/2024 8:30 AM EDT Telephone Visit [facility] Gynecology Oncology, A Department of [facility] [address] [facility] [address] [place] [address] Raymond Sepulveda MD [address] [facility], [address] [place] [address] Scheduled Procedures Name Priority Associated Diagnoses Date/Ti me DEBRIDEMENT BREAST BREAST WOUND LEFT 10/12/2024 5:00 PM EDT documented as of this encounter Goals Goal Patient Goal Type Associated Problems Recent Progress Patient-Stated? Author return home General Yes Mariah Gonsalez, RN Note: Evaluation of progress towards goal: progressing, patient will return home at discharge/follow up [facility] Wound care clinic documented as [...] trained personnel. A total of 30 minutes rrsz-um-[id number] moderate sedation was provided by Dr. Luz. [...] trained personnel. A total of 30 minutes vgga-op-[id number] sedation was provided by Dr. Luz. 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
--- OUTSIDE RECORDS SUMMARY | 2024-10-10 15:05 | XMS_ITS | Encounter Summary ---
Author Organization [employer] [facility] Address [id number] [address] [place] [address] Care Team Providers Care Registered Associate Name Role Phone Amy Collier ORDERING MACHINE OPERATOR-AIRSET MOLDER Primary Care Provider + Encounter Details Date Type Department Care Team (Late st Contact Info) Description 01/07/2024 Orders Only [facility] Infectious Disease [address] [facility] [address] [place] [address] External, Scanning Provider Social History Tobacco Use Types Packs/Day Years Used Date Smoking Tobacco: Never Smokeless Tobacco: Never Alcohol Use Standard Drinks/Week Comments Yes 0 (1 standard drink = 0.6 oz pur e alcohol) Socially AHC Utilities Answer Date Recorded In the past 12 months has [employer] electric, gas, oil, or water company threatened [...] any clubs o r organizations such as jain groups, unions, fraternal or athletic groups, or [...] Recorded Total Score 0 03/07/2022 [facility] of Occupat ional Health - Occupational Stress [...] Description 10/12/2024 5:00 PM EDT Hospital Encounter [facility] - Surgery [address] [place] [address] Jhon Rosado MD [address], [facility] [address] [place] [address] 10/12/2024 5:00 PM EDT - 10/12/2024 6:15 PM EDT Surgery [facility] - Surgery [address] [place] [address] Jhon Rosado MD [address], [facility] [address] [place] [address] DEBRIDEMENT BREAST 10/26/2024 8:30 AM EDT Telephone Visit [facility] Gynecology Oncology, A Department of [place] [address] [facility] [address] [place] [address] [place] [address] [place] [address], [address] [place] [address] Scheduled Procedures Name Priority Associated Diagnoses Date/Ti [...] BLOOD ORDERABLES Final Result Performing Organization Address [facility] de Phone Number MANUALLY TRANSCRIBED RESULTS * WBC (12/31/2023) External Wbc Count 5.6 4.0 - 11.0 MANUALLY TRANSCRIBED RESULTS Blood 12/31/2023 us Scanning Provider External LAB BLOOD ORDERABLES Final Result Performing Organization Address [facility] de Phone Number MANUALLY TRANSCRIBED RESULTS * Creatinine includes GFR, serum (12/31/2023) External Creatinine 0.89 0.55 - 1.02 MANUALLY TRANSCRIBED RESULTS Blood 12/31/2023 us Scanning Provider External LAB BLOOD ORDERABLES Final Result Performing Organization Address [facility] de Phone Number MANUALLY TRANSCRIBED RESULTS documented in this encounter Visit Diagnoses Not on filedocumented in this encounter Additional Health Concerns Infection Onset Date Last Indicated Resolved Time 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
--- OUTSIDE RECORDS SUMMARY | 2024-10-10 15:05 | XMS_ITS | Encounter Summary ---
Author Organization [facility] [employer] Address [facility]-[id number] [address] [place] [address] Care Team Providers Care Psychiatry Instructor Name Role Phone Amy Collier CRATE TIER-LUNCHROOM SUPERVISOR Primary Care Provider + Encounter Details Date Type Department Care Team (Late st Contact Info) Description 12/31/2023 Orders Only [facility] - Family Medicine [address] [place] [phone] Ref Prov, [place] [address] Social History Tobacco Use Types Packs/Day Years Used Date Smoking Tobacco: Never Smokeless Tobacco: Never Alcohol Use Standard Drinks/Week Comments Yes 0 (1 standard drink = 0.6 oz pur e alcohol) Socially [employer] Utilities Answer Date Recorded In the past 12 months has [employer] electric, gas, oil, or water company threatened [...] often do you attend chur ch or presybeterian services? More than 4 times per year 02/27/2022 Do you belong to any clubs o r organizations such as orthodox groups, unions, fraternal or athletic groups, [...] Answer Date Recorded Total Score 0 03/07/2022 [facility] [place] of Occupat ional Health - Occupational Stress [...] Recorded Do you need help finding a [facility] career center and/or a training program? No [...] 10/12/2024 5:00 PM EDT Hospital Encounter [facility] Division of [facility] - Surgery [address] [place] [address] Jhon Rosado MD [address], [facility] [address] [place] [address] 10/12/2024 5:00 PM EDT - 10/12/2024 6:15 PM EDT Surgery [facility] - Surgery [address] [place] [address] Jhon Rosado MD [address], [facility] [address] [place] [address] DEBRIDEMENT BREAST 10/26/2024 8:30 AM EDT Telephone Visit [facility] Gynecology Oncology, A Department of [place] [address] [facility] [address] [place] [address] Raymond Sepulveda MD [address] [facility], [address] [place] [address] Scheduled Procedures Name Priority Associated Diagnoses Date/Ti me DEBRIDEMENT BREAST BREAST WOUND LEFT 10/12/2024 5:00 PM EDT documented as of this encounter Procedures Procedure Name Priority Date/Time Associated Diagnosis Comments DIABETES EYE EXAM Routine 12/30/2023 4:01 PM EDT documented in this encounter Results * HM DIABETES EYE EXAM (12/30/2023 4:01 PM EDT) us Not In System Ref Prov HEALTH MAINTENANCE Final Result MANUALLY TRANSCRIBED RESULTS documented in this encounter Visit Diagnoses Not on filedocumented in this encounter Additional Health Concerns Infection Onset Date Last Indicated Resolved Time MANAGER ANALYSIS Comment:LT CHEST WALL TISSUE(08/12/24) 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
--- OUTSIDE RECORDS SUMMARY | 2024-10-10 15:05 | XMS_ITS | Encounter Summary ---
Author Organization [employer] Sys tem Address [id number] [address] [place] [address] Care Team Providers Care Oncology Radiation Physician Name Role Phone Amy Collier SCHOOL ADMISSIONS REPRESENTATIVE-NONFARM ANIMAL CARETAKER Primary Care Provider + Encounter Details Date Type Department Care Team (Late st Contact Info) Description 08/02/2024 [facility] - Family Medicine [address] [place] [address] Mela Berrios RN Social History Tobacco Use Types Packs/Day Years Used Date Smoking Tobacco: Never Passive Smoke Exposure: Past Smokeless Tobacco: Never Alcohol Use Standard Drinks/Week Comments Yes 0 (1 standard drink = 0.6 oz pur e alcohol) Socially [facility] Utilities Answer Date Recorded In the past 12 months has [employer] electric, gas, oil, or water company threatened [...] often do you attend chur ch or orthodoxy services? More than 4 times [...] Answer Date Recorded Total Score 0 07/14/2024 [facility] of Occupat ional Health - Occupational Stress [...] Description 10/12/2024 5:00 PM EDT Hospital Encounter [facility] - Surgery [address] [place] [address] Jhon Rosado MD [address], [facility] [address] [place] [address] 10/12/2024 5:00 PM EDT - 10/12/2024 6:15 PM EDT Surgery [facility] Surgery [address] [place] [address] Jhon Rosado MD [address], [address] [place] [address] DEBRIDEMENT BREAST 10/26/2024 8:30 AM EDT Telephone Visit [facility] Gynecology Oncology, A Department of [facility] [address] [place] [address] Raymond Sepulveda MD [address] [facility], [address] [place] [address] Scheduled Procedures Name Priority Associated Diagnoses Date/Ti me DEBRIDEMENT BREAST BREAST WOUND LEFT 10/12/2024 5:00 PM EDT documented as of this encounter Goals Goal Patient Goal Type Associated Problems Recent Progress Patient-Stated? 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
--- OUTSIDE RECORDS SUMMARY | 2024-10-10 15:05 | XMS_ITS | Encounter Summary ---
Author Organization [employer] Sys tem Address [facility]-[id number] [address] [place] [address] Care Team Providers Care Retail Inventory Control Clerk Name Role Phone Amy Collier BALLAST INSPECTOR-ASSOCIATE PARTNER Primary Care Provider + Encounter Details Date Type Department Care Team (Late st Contact Info) Description 12/15/2023 Telephone [facility] Infectious Disease [address] [facility] [address] [place] [address] Crista Mauricio CMA Social History Tobacco Use Types Packs/Day Years Used Date Smoking Tobacco: Never Smokeless Tobacco: Never Alcohol Use Standard Drinks/Week Comments Yes 0 (1 standard drink = 0.6 oz pur e alcohol) Socially [employer] Utilities Answer Date Recorded In the past 12 months has [employer] electric, gas, oil, or water company threatened [...] any clubs o r organizations such as judaism groups, unions, fraternal or athletic groups, or [...] Answer Date Recorded Total Score 0 03/07/2022 [facility] [place] of Occupat ional Health - Occupational [...] 8:57 AM EDT NEW PA SUBMITTED: [id number] is processing your PA [...] [place] [employer] 2017 Your PA request for [id number] was approved for 28 days. The PA# assigned is [id number]. * Telephone Encounter - AMEENA Vallejo - 12/15/2023 8:57 AM EDT Great news! Thank you. documented in this encounter Plan of Treatment Upcoming Encounters Date Type Department Care Team (Late st Contact Info) Description 10/12/2024 5:00 PM EDT Hospital Encounter [facility] - Surgery [address] [place] [address] Jhon Rosado MD [address], [address] [facility] [place] [address] 10/12/2024 5:00 PM EDT - 10/12/2024 6:15 PM EDT Surgery [facility] Surgery [address] [place] [address] Jhon Rosado MD [address], [address] [place] [address] DEBRIDEMENT BREAST 10/26/2024 8:30 AM EDT Telephone Visit [facility] Gynecology Oncology, A Department of 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
--- OUTSIDE RECORDS SUMMARY | 2024-10-10 15:05 | XMS_ITS | Encounter Summary ---
Author Organization [employer] MOD tem Address [facility]-[id number] [address] [place] [address] Care Team Providers Care Orthotic Finish Grinding Technician Name Role Phone Amy Collier RAILWAY YARD ASSISTANT-HEAD TRANSFER CLERK Primary Care Provider + Encounter Details Date Type Department Care Team (Latest Contact Info) Description 10/05/2024 Travel Social History Tobacco Use Types Packs/Day Years Used Date Smoking Tobacco: Never Passive Smoke Exposure: Past Smokeless Tobacco: Never Alcohol Use Standard Drinks/Week Comments Not Currently 0 (1 standard drink = 0.6 oz pur e alcohol) [facility] Utilities Answer Date Recorded In the past 12 months has [employer] electric, gas, oil, or water company threatened [...] week 02/27/2022 How often do you attend [facility] or restorationism services? More than 4 times [...] Answer Date Recorded Total Score 0 08/10/2024 [facility] of Occupat ional Health - [...] Description 10/12/2024 5:00 PM EDT Hospital Encounter [facility] Surgery [address] [place] [address] Jhon Rosado MD [address], [facility] [address] [place] [address] 10/12/2024 5:00 PM EDT - 10/12/2024 6:15 PM EDT Surgery [facility] - Surgery [address] [place] [address] Jhon Rosado MD [address], [facility] [address] [facility] [place] [address] DEBRIDEMENT BREAST 10/26/2024 8:30 AM EDT Telephone Visit [facility] Gynecology Oncology, A Department of [place] [address] [facility] [address] [place] [address] Raymond Sepulveda MD [address] [facility], [address] [place] [address] Scheduled Procedures Name Priority Associated [...] Infection Onset Date Last Indicated Resolved Time CODE OFFICIAL Comment:LT CHEST WALL TISSUE(08/12/24) 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
--- OUTSIDE RECORDS SUMMARY | 2024-10-10 15:05 | XMS_ITS | Encounter Summary ---
Author Organization [facility] [employer] Sys [employer] Address [facility]-[id number] [address] 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 More than 4 times per year [...] Score 0 08/10/2024 [facility] of Occupat ional Health - [...] Description 10/12/2024 5:00 PM EDT Hospital Encounter [facility] - Surgery [address] [place] [address] Jhon Rosado MD [address], [address] [place] [address] 10/12/2024 5:00 PM EDT - 10/12/2024 6:15 PM EDT Surgery [facility] Surgery [address] [place] [address] Jhon Rosado MD [address], [address] [place] [address] DEBRIDEMENT BREAST 10/26/2024 8:30 AM EDT Telephone [facility] Gynecology Oncology, A Department of [place] [address] [place] [address] Raymond Sepulveda MD [address] [place] [address], [address] [place] [address] Scheduled Procedures Name Priority Associated Diagnoses Date/Ti me DEBRIDEMENT BREAST BREAST WOUND LEFT 10/12/2024 5:00 PM EDT documented as of this encounter Goals Goal Patient Goal Type Associated Problems Recent Progress Patient-Stated? 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
--- OUTSIDE RECORDS SUMMARY | 2024-10-10 15:05 | XMS_ITS | Clinical Summary ---
Author Organization [facility] Address [address] [place] [address] Phone Care Team Providers Care Assembler Deck And Hull Name Role Phone Randy Lu Primary Care [...] quadrivalent 11/30,01/19/2017,01/07/2016,2014,01/05/2014 Influenza, seasonal, injectable 11/14/2019,12/13,12/29/2012 Novel [id number], preservative-free 01/17/2009 Tdap vaccine, age 7 year [...] Screening 1970 Lipid Panel 1970 Sigmoidoscopy 1970 Diabetes Screening 1988 Hepatitis C Screening 1988 Hepatitis B Vaccines (1 of 3 - 19+ 3-dose series) 1989 Pneumococcal Vaccine (1 of 2 - PCV) 1989 HPV/Cotest 10/11/1991 MMR Vaccines (1 of 1 - Standard series) 02/14/2009 Zoster Vaccines (1 of 2) 2020 COVID-19 Vaccine (3 - 2023- season) 2023 12/06/2020, 11/15/2020 Yearly Adult Physical 06/01/2024 06/01/2023, 022 Colorectal Cancer Screening 06/06/2024 FIT-DNA (Cologuard) 06/06/2024 06/06/2021 Mammogram 10/15/2024 10/16/2023, 03/0 10/2023, 03/26/2023, Additional history exists Influenza Vaccine (#1) 2024 , 11/14/2019, 12/13/2018, Additional history exists Cervical Cancer Screening 05/31/2026 Pap Smear 05/31/2026 06/01/2023 DTaP/Tdap/Td Vaccines (2 - Td or Tdap) 07/08/2027 07/07/2017 HIB Vaccines Aged Out No longer eligi ble based on patient's age to complete this topic HPV Vaccines Aged Out No longer eligi ble based on patient's age to complete this topic Hepatitis A Vaccines Aged Out No long [...] patient's age to complete this topic Insurance [facility] Care Teams Assembler Deck And Hull Relationship Specialty Start Date End Date Randy Lu DO PCP - General 07/21/22
--- OUTSIDE RECORDS SUMMARY | 2024-10-10 15:05 | XMS_ITS | Encounter Summary ---
Author Organization [facility] Address [facility]-[id number] [address] [place] [address] Care Team Providers Care Volleyball Commentator Name Role Phone Amy Collier ASSEMBLER SHOW MOTOR-SADDLE STITCHING MACHINE OPERATOR Primary Care Provider + Encounter Details Date Type Department Care Team (Late st Contact Info) Description 12/25/2023 Orders Only [facility] Infectious Disease [address] [facility] [address] [place] [address] External, Scanning Provider Social History Tobacco Use Types Packs/Day Years Used Date Smoking Tobacco: Never Smokeless Tobacco: Never Alcohol Use Standard Drinks/Week Comments Yes 0 (1 standard drink = 0.6 oz pur e alcohol) Socially [facility] Utilities Answer Date Recorded In the past 12 months has [employer] electric, gas, oil, or water company threatened [...] Answer Date Recorded Total Score 0 03/07/2022 [facility] of Occupat ional Health - Occupational [...] Description 10/12/2024 5:00 PM EDT Hospital Encounter [facility] - Surgery [address] [place] [address] Jhon Rosado MD [address], [facility] [address] [place] [address] 10/12/2024 5:00 PM EDT - 10/12/2024 6:15 PM EDT Surgery [facility] - Surgery [address] [place] [address] Jhon Rosado MD [address], [facility] [address] [place] [address] DEBRIDEMENT BREAST 10/26/2024 8:30 AM EDT Telephone Visit [facility] Gynecology Oncology, A Department of [place] [address] [facility] [address] [place] [address] [place] [address] [place] [address], [address] [place] [address] Scheduled Procedures Name Priority Associated Diagnoses Date/Ti [...] Final Result Performing Organization Address [facility] de Phone Number MANUALLY TRANSCRIBED RESULTS * WBC (12/24/2023) External Wbc Count 4.3 4.0 - 11.0 MANUALLY TRANSCRIBED RESULTS Blood 12/24/2023 us Scanning Provider External LAB BLOOD ORDERABLES Final Result Performing Organization Address [facility] de Phone Number MANUALLY TRANSCRIBED RESULTS * (ABNORMAL) Creatinine includes GFR, serum (12/24/2023) External Creatinine 1.20(A) 0.55 - 1.02 MANUALLY TRANSCRIBED RESULTS Blood 12/24/2023 us Scanning Provider External LAB BLOOD ORDERABLES Final Result Performing Organization Address [facility] de Phone Number MANUALLY TRANSCRIBED RESULTS documented in this encounter Visit Diagnoses Not on filedocumented in this encounter Additional Health Concerns Infection Onset Date Last Indicated Resolved Time PROGRAM SUPPORT SPECIALIST Comment:LT CHEST WALL TISSUE(08/12/24) 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
--- OUTSIDE RECORDS SUMMARY | 2024-10-10 15:05 | XMS_ITS | Encounter Summary ---
Author Organization [employer] Sys [employer] Address [id number] [address] [place] [address] Care Team Providers Care Construction Teacher Name Role Phone Amy Collier REVIEW SPECIALIST-HOSPITAL LABORATORY TECHNICIAN Primary Care Provider + Encounter Details Date Type Department Care Team (Late st Contact Info) Description 08/02/2024 Telephone [facility] Plastic and Reconstructive Surgery [address] [facility] [address] [place] [address] Viviane Lopez CMA Social History Tobacco Use Types Packs/Day Years Used Date Smoking Tobacco: Never Passive Smoke Exposure: Past Smokeless Tobacco: Never Alcohol Use Standard Drinks/Week Comments Yes 0 (1 standard drink = 0.6 oz pur e alcohol) Socially [facility] Utilities Answer Date Recorded In the past 12 months has [employer] electric, gas, oil, or water [employer] threatened to shut off services in your [...] often do you attend chur ch or episcopalian services? More than 4 times per year [...] Answer Date Recorded Total Score 0 07/14/2024 [facility] [place] of Occupat ional Health - Occupational Stress [...] Hospital Encounter [facility] - Surgery [address] [place] [address] Jhon Rosado MD [address], [facility] [address] [place] [address] 10/12/2024 5:00 PM EDT - 10/12/2024 6:15 PM EDT Surgery [facility] - Surgery [address] [place] [address] Jhon Rosado MD [address], [address] [place] [address] DEBRIDEMENT BREAST 10/26/2024 8:30 AM EDT Telephone Visit [facility] Gynecology Oncology, A Department of [facility] [address] [place] [address] Raymond Sepulveda MD [address] [facility], [address] [place] [address] Scheduled Procedures Name Priority Associated Diagnoses Date/Ti me DEBRIDEMENT BREAST BREAST WOUND LEFT 10/12/2024 5:00 PM EDT documented as of this encounter Goals Goal Patient Goal Type Associated Problems Recent Progress Patient-Stated? 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
--- OUTSIDE RECORDS SUMMARY | 2024-10-10 15:05 | XMS_ITS | Encounter Summary ---
Author Organization [employer] Sys [employer] Address [id number] [address] [place] [address] Care Team Providers Care Boring Machine Operator Vertical Name Role Phone Amy Collier ORTHOPEDICS TEACHER-DIGITAL MEASUREMENT ADVISOR Primary Care Provider + Encounter Details Date Type Department Care Team (Late st Contact Info) Description 06/23/2024 Telephone [facility] Plastic and Re[facility]ive Surgery [address] [facility] [address] [place] [address] Viviane Lopez CMA Social History Tobacco Use Types Packs/Day Years Used Date Smoking Tobacco: Never Passive Smoke Exposure: Past Smokeless Tobacco: Never Alcohol Use Standard Drinks/Week Comments Yes 0 (1 standard drink = 0.6 oz pur e alcohol) Socially [facility] Utilities Answer Date Recorded In the past 12 months has [employer] electric, gas, oil, or water [employer] threatened to shut off services in your [...] often do you attend chur ch or lutheran services? More than 4 times [...] Answer Date Recorded Total Score 2 03/30/2024 [facility] of Occupat ional Health - Occupational Stress [...] Description 10/12/2024 5:00 PM EDT Hospital Encounter [facility] - Surgery [address] [place] [address] Jhon Rosado MD [address], [facility] [address] [place] [address] 10/12/2024 5:00 PM EDT - 10/12/2024 6:[address] [facility] - Surgery [address] [place] [address] Jhon Rosado MD [address], [address] [place] [address] DEBRIDEMENT BREAST 10/26/2024 8:30 AM EDT Telephone Visit [facility] Gynecology Oncology, A Department of [facility] [address] [place] [address] Raymond Sepulveda MD [address] [facility], [address] [place] [address] Scheduled Procedures Name Priority Associated Diagnoses Date/Ti me DEBRIDEMENT BREAST BREAST WOUND LEFT 10/12/2024 5:00 PM EDT documented as of this encounter Goals Goal Patient Goal Type Associated Problems Recent Progress Patient-Stated? 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
--- OUTSIDE RECORDS SUMMARY | 2024-10-10 15:05 | XMS_ITS | Encounter Summary ---
Author Organization [employer] tem Address [facility] [id number] [place] [place] [address] Care Team Providers Care Die Machine Operator Name Role Phone Amy Collier William LINDQUIST Primary Care Provider + Reason for Referral * Consultation (Urgent) - Pending Review Specialty Diagnoses / Procedures Referred By Contac t Referred To Contact Infectious Disease / Respiratory Therapy Diagnoses Acid fast bacillus Carolina Munguia APRN-CNP [address] [address] [address] [address] Phone: tel: fax: Uyen Rivera MD [address] [address] Phone: tel: fax: Referral ID Status Reason Start Date Expiration Date Visits Requested Visits Authorized [id number] Pending Review Specialty Services Required 12/02/2023 12/01/2024 1 1 * Consultation (Urgent) - Pending Review Specialty Diagnoses / Procedures Referred By Contac t Referred To Contact Infectious Disease Diagnoses Acid fast bacillus Carolina Munguia APRN-CNP 14[address] [facility] [address] [address] Phone: tel: fax: Clint Lizarraga MD [address] [place] [address] Phone: tel: fax: Referral ID Status Reason Start Date Expiration Date Visits Requested Visits Authorized [id number] Pending Review Specialty Services Required 12/02/2023 12/01/2024 1 1 Encounter Details Date Type Department Care Team (Late st Contact Info) Description 12/02/2023 Orders Only [facility] Infectious Disease [address] [facility] [address] [facility] [address] Carolina Munguia APRN-CNP [address] [facility], [address] [address] Acid fast bacillus (Primary Dx) Social History Tobacco Use Types Packs/Day Years Used Date Smoking Tobacco: Never Smokeless Tobacco: Never Alcohol Use Standard Drinks/Week Comments Yes 0 (1 standard drink = 0.6 oz pur e alcohol) Socially [employer] Utilities Answer Date Recorded In the past 12 months has [employer], gas, oil, or water [employer] threatened to shut off services in your [...] 02/27/2022 How often do you attend [facility] or anabaptism services? More than 4 times [...] Score 0 03/07/2022 [facility] [place] - Occupational Stress Questionnaire Answer Date Recorded [...] Description 10/12/2024 5:00 PM EDT Hospital Encounter [facility] Surgery [address] [place] [address] Jhon Rosado MD [address], [facility] [address] [place] [address] 10/12/2024 5:00 PM EDT - 10/12/2024 6:15 PM EDT Surgery [facility] Surgery [address] [place] [address] Jhon Rosado MD [address], [facility] [address] [place] [address] DEBRIDEMENT BREAST 10/26/2024 8:30 AM EDT Telephone Visit [facility] Gynecology Oncology, A Department of [place] [address] [facility] [address] [place] [address] [place] [address] [place] [address], [address] [place] [address] Scheduled Procedures Name Priority Associated Diagnoses Date/Ti me DEBRIDEMENT BREAST BREAST WOUND LEFT 10/12/2024 5:00 PM EDT Scheduled Referrals Name Type Priority Associated Diagnoses [...] Infection Onset Date Last Indicated Resolved Time [facility] Comment:LT CHEST WALL TISSUE(08/12/24) 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
--- OUTSIDE RECORDS SUMMARY | 2024-10-10 15:05 | XMS_ITS | Encounter Summary ---
Author Organization [employer] Address [id number] [address] [place] [address] Care Team Providers Care Doctor Of Optometry Name Role Phone Amy Collier CERTIFIED MEDICAL ASST-RESTAURANT MANAGEMENT INTERNSHIP Primary Care Provider + Encounter Details Date Type Department Care Team (Late st Contact Info) Description 06/20/2024 Telephone [facility] Internal Medicine - Family Medicine [address] [place] [phone] Kodi Monteiro CMA Social History Tobacco Use Types Packs/Day Years Used Date Smoking Tobacco: Never Passive Smoke Exposure: Past Smokeless Tobacco: Never Alcohol Use Standard Drinks/Week Comments Yes 0 (1 standard drink = 0.6 oz pur e alcohol) Socially [employer] Utilities Answer Date Recorded In the past 12 months has [employer], gas, oil, or water company threatened [...] often do you attend chur ch or mu-ism services? More than 4 times [...] Answer Date Recorded Total Score 2 03/30/2024 [facility] of Occupat ional Health - Occupational Stress [...] Hospital Encounter [facility] - Surgery [address] [place] [address] Jhon Rosado MD [address], [address] [place] [address] 10/12/2024 5:00 PM EDT - 10/12/2024 6:15 PM EDT Surgery [facility] - Surgery [address] [place] [address] Jhon Rosado MD [address], [address] [place] [address] DEBRIDEMENT BREAST 10/26/2024 8:30 AM EDT Telephone Visit [facility] Gynecology Oncology, A Department of [facility] [address] [place] [phone] Raymond Sepulveda MD [address] [place] [address], [address] [place] [address] Scheduled Procedures Name Priority Associated Diagnoses Date/Ti me DEBRIDEMENT BREAST BREAST WOUND LEFT 10/12/2024 5:00 PM EDT documented as of this encounter Goals Goal Patient Goal Type Associated Problems Recent Progress Patient-Stated? 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
--- OUTSIDE RECORDS SUMMARY | 2024-10-10 15:05 | XMS_ITS | Encounter Summary ---
Author Organization [employer] Address [id number] [address] [place] [address] Care Team Providers Care Brush Cleaner Name Role Phone Amy Collier LOCAL BULK DRIVER-MOUNTED POLICE OFFICER Primary Care Provider + Encounter Details Date Type Department Care Team (Late st Contact Info) Description 10/07/2024 [facility] [address] [facility] [address] [place] [address] Jhon Rosado MD [address], [facility] [address] [place] [address] Social History Tobacco Use Types Packs/Day Years Used Date Smoking Tobacco: Never Passive Smoke Exposure: Past Smokeless Tobacco: Never Alcohol Use Standard Drinks/Week Comments Not Currently 0 (1 standard drink = 0.6 oz pur e alcohol) [facility] Utilities Answer Date Recorded In the past 12 months has [employer], gas, oil, or water [employer] threatened to shut off services in your [...] Answer Date Recorded Total Score 0 08/10/2024 [facility] of Occupat [facility] - Occupational [...] Recorded Do you need help finding a [facility] and/or a training [...] encounter Miscellaneous Notes * Telephone Encounter - Kendy Pablo - 10/07/2024 12:44 PM EDT Spoke to pt Surgery is scheduled 10/12 at . Per Bill arrive at 12pm. NPO 8hrs prior. She spoke with Dr. Gregory office and was told to hold her xeloda and eliquis. documented in this encounter Plan of Treatment Upcoming Encounters Date Type Department Care Team (Late st Contact Info) Description 10/12/2024 5:00 PM EDT Hospital Encounter [facility] Surgery [address] [place] [address] Jhon Rosado MD [address], [facility] [address] [place] [address] 10/12/2024 5:00 PM EDT - 10/12/2024 6:15 PM EDT Surgery [facility] Surgery [address] [place] [address] Jhon Rosado MD [address], [address] [place] [address] DEBRIDEMENT BREAST 10/26/2024 8:30 AM EDT Telephone Visit [facility] Oncology, A Department of [address] [place] [address] Raymond Sepulveda MD 5308 [facility], [address] [place] [address] Scheduled Procedures Name Priority Associated Diagnoses Date/Ti me DEBRIDEMENT BREAST BREAST WOUND LEFT 10/12/2024 5:00 PM EDT documented as of this encounter Goals Goal Patient Goal Type Associated Problems Recent Progress Patient-Stated? 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
--- OUTSIDE RECORDS SUMMARY | 2024-10-10 15:06 | XMS_ITS | Encounter Summary ---
Author Organization [facility] Address [id number] [address] [place] [address] Care Team Providers Care Hotel Receptionist Name Role Phone Amy Collier SUPERVISOR TAN ROOM-PREKINDERGARTEN TEACHER Primary Care Provider + Encounter Details Date Type Department Care Team (Late st Contact Info) Description 05/27/2024 Orders Only [facility] Internal Medicine - Family Medicine [address] [place] [phone] Ref Prov, [place] [address] Social History Tobacco Use Types Packs/Day Years [...] Answer Date Recorded Total Score 2 03/30/2024 [facility] of Occupat ional [...] Recorded Do you need help finding a [facility] and/or a training [...] Description 10/12/2024 5:00 PM EDT Hospital Encounter [facility] - Surgery [address] [place] [address] Jhon Rosado MD [address], [facility] [address] [place] [address] 10/12/2024 5:00 PM EDT - 10/12/2024 6:15 PM EDT Surgery [facility] - Surgery [address] [place] [address] Jhon Rosado MD [address], [facility] [address] [place] [address] DEBRIDEMENT BREAST 10/26/2024 8:30 AM EDT Telephone Visit [facility] Gynecology Oncology, A Department of [place] [address] [facility] [address] [place] [address] Raymond Sepulveda MD [address] [facility], [address] [place] [address] Scheduled Procedures Name Priority Associated Diagnoses Date/Ti me DEBRIDEMENT BREAST BREAST WOUND LEFT 10/12/2024 5:00 PM EDT documented as of this encounter Goals Goal Patient Goal Type Associated Problems Recent Progress Patient-Stated? 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
--- OUTSIDE RECORDS SUMMARY | 2024-10-10 15:06 | XMS_ITS | Encounter Summary ---
Author Organization [employer] Address [facility] [id number] [address] [place] [address] Care Team Providers Care Gas Golf Cart Repairer Name Role Phone Amy Collier TRIMMER OPERATOR THREE KNIFE-RETREAD OPERATOR Primary Care Provider + Reason for Referral * Misc (Routine) - Closed Specialty Diagnoses / Procedures Referred By Contac t Referred To Contact Diagnoses Malignant neoplasm of lower-inner quadrant of right breast of female, estrogen receptor positive (CMS-HCC) Procedures Follow anesthesia guideines Christy He MD [address] [place] [address] Phone: tel: fax: Referral ID Status Reason Start Date Expiration Date Visits Re quested Visits Authorized [id number] Closed 10/02/2023 10/01/2024 1 1 Encounter Details Date Type Department Care Team (Late st Contact Info) Description 10/02/2023 Orders Only [facility] Surgical Oncology [address] [place] [address] Christy He MD [address] [place] [address] Malignant neoplasm of lower-inner quadrant of [...] Answer Date Recorded Total Score 0 03/07/2022 [facility] of Occupat ional Health [...] Do you need help finding a [facility] career [facility] and/or a training [...] 10/12/2024 5:00 PM EDT Hospital Encounter [facility] - Surgery [address] [place] [address] Jhon Rosado MD [address], [facility] [address] [place] [address] 10/12/2024 5:00 PM EDT - 10/12/2024 6:15 PM EDT Surgery [facility] - Surgery [address] [place] [address] Jhon Rosado MD [address], [facility] [address] [place] [address] DEBRIDEMENT BREAST 10/26/2024 8:30 AM EDT Telephone Visit [facility] Gynecology Oncology, A Department of [address] [place] [address] Raymond Sepulveda MD [address] [place] [address], [address] [place] [address] Scheduled Orders Name Type Priority Associated Diagnoses Orde r Schedule Mammography specimen films right Imaging Routine Malignant neoplasm of lower-inner quadrant of right breast of female, estrogen receptor positive ([facility]) 1 Occurrences starting 10/02/2023 until 10/01/2024 Scheduled Procedures Name Priority Associated Diagnoses Date/Ti me DEBRIDEMENT BREAST BREAST WOUND LEFT 10/12/2024 5:00 PM EDT documented as of this encounter Results * Ultrasound guided localization breast initial right (10/16/2023 2:08 PM EDT) Anatomical Region Laterality Modality Breast Right Ultrasound 10/16/2023 2:27 PM EDT Narrative 10/16/2023 2:32 PM EDT YASMIN FLANNERY 1970 [id number], [id number] EXAM: MAMM POST BX DIAG UNI RT, [...] Miller MD on 10/16/2023 2:32 PM 2000 Procedure Note Althea Miller MD - 10/16/2023 YASMIN FLANNERY 1970 [id number], [id number] EXAM: MAMM POST BX DIAG UNI RT, [...] Miller MD on 10/16/2023 2:32 PM 2000 us Christy He MD IMG US ORDERABLES Final Resul t documented in this encounter Visit Diagnoses Diagnosis Malignant neoplasm of lower-inner quadrant of right breast of female, estrogen receptor positive (CMS-HCC)- Primary Malignant neoplasm of lower-inner quadrant of right breast of female, estrogen receptor positive (CMS-HCC) documented in this encounter Additional Health Concerns Infection Onset Date Last Indicated Resolved Time REAMER HAND Comment:LT CHEST WALL TISSUE(08/12/24) 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
--- OUTSIDE RECORDS SUMMARY | 2024-10-10 15:06 | XMS_ITS | Encounter Summary ---
Author Organization [facility] [employer] Address [facility] [id number] [address] [place] [address] Care Team Providers Care Human Services Worker Name Role Phone Amy Collier GRID INSPECTOR-DIRECTOR OF FOOD AND NUTRITION Primary Care Provider + Encounter Details Date Type Department Care Team (Late Contact Info) Description 12/26/2021 [facility] [address] [facility] [address] Ref Prov, [place] [address] Social History Tobacco Use Types Packs/Day Years [...] Department Care Team (Late Contact Info) Description 10/12/2024 5:00 PM EDT Hospital Encounter [facility] Division of [facility] - Surgery [address] [place] [address] Jhon Rosado MD [address], [address] [place] [address] 10/12/2024 5:00 PM EDT - 10/12/2024 6:15 PM EDT Surgery [facility] Division of [facility] - Surgery [address] [facility] [phone] Jhon Rosado MD [address], [address] [place] [address] DEBRIDEMENT BREAST 10/26/2024 8:30 AM EDT Telephone Visit [facility] Gynecology Oncology, Department of [facility] [address] [facility] [address] [place] [address] [place] [address] [place] [address], [address] [place] [address] Scheduled Procedures Name Priority Associated Diagnoses Date/Ti me DEBRIDEMENT BREAST BREAST WOUND LEFT 10/12/2024 5:00 PM EDT documented as of this encounter Procedures Procedure Name Priority Date/Time Associated Diagnosis Comments MAMMOGRAPHY Routine 12/13/2021 documented in this encounter Results * HM MAMMOGRAPHY (12/13/2021) Anatomical Region Laterality Modality Other us Not In System Ref Prov HEALTH MAINTENANCE Final Result documented in this encounter Visit Diagnoses Not on filedocumented in this encounter Additional Health Concerns Infection Onset Date Last Indicated Resolved Time Influenza 03/07/2022 03/07/2022 03/14/2022 11:1 2 PM EST SMALL ARMS ARTILLERY REPAIRER Comment:LT CHEST WALL TISSUE(08/12/24) 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
--- OUTSIDE RECORDS SUMMARY | 2024-10-10 15:06 | XMS_ITS | Encounter Summary ---
Author Organization [employer] Address [facility] [id number] [address] [place] [address] Care Team Providers Care Full Stack Net Developer Name Role Phone Amy Collier LIEUTENANT GENERAL-DRIVER MATERIAL HANDLER Primary Care Provider + Encounter Details Date Type Department Care Team (Late st Contact Info) Description 02/25/2022 Telephone [facility] - Family Medicine [address] [place] [address] Radha Tineo MA Social History [...] week 02/27/2022 How often do you attend [facility] or oriental orthodox services? More than 4 [...] Answer Date Recorded Total Score 0 02/27/2022 [facility] of Occupat ional Health - [...] Recorded Do you need help finding a [facility] career center and/or a training [...] EST Patient notified and understands. Transferred to [facility] to get scheduled for a telehealth. * [...] Description 10/12/2024 5:00 PM EDT [facility] [address] [place] [address] Jhon Rosado MD [address], [facility] [address] [place] [phone] 10/12/2024 5:00 PM EDT - 10/12/2024 6:15 PM EDT Surgery [facility] Division of [facility] - Surgery [address] [place] [address] Jhon Rosado MD [address], [facility] [address] [place] [address] DEBRIDEMENT BREAST 10/26/2024 8:30 AM EDT Telephone Visit [facility] Gynecology Oncology, Department of [place] [address] [facility] [address] [place] [address] Raymond Sepulveda MD [address] [place] [address], [address] [place] [address] Scheduled Procedures Name Priority Associated Diagnoses Date/Ti me DEBRIDEMENT BREAST BREAST WOUND LEFT 10/12/2024 5:00 PM EDT documented as of this encounter Visit Diagnoses Not on filedocumented in this encounter Additional Health Concerns Infection Onset Date Last Indicated Resolved Time Influenza 03/07/2022 03/07/2022 03/14/2022 11:1 2 PM EST POULTRY FARM LABORER Comment:LT CHEST WALL TISSUE(08/12/24) 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
--- OUTSIDE RECORDS SUMMARY | 2024-10-10 15:06 | XMS_ITS | Encounter Summary ---
Author Organization [employer] Address [facility]-[id number] [address] [place] [address] Care Team Providers Care Flight Engineer Performance Qualified Name Role Phone Amy Collier ELEVATOR PILOT-CHANNEL OPENER OUTSOLES Primary Care Provider + Encounter Details Date Type Department Care Team (Late st Contact Info) Description 05/25/2024 [facility] [address] [facility] [address] [place] [address] Shereen Mortensen PA-C [address], [facility] [address] [place] [address] Social History Tobacco Use Types Packs/Day Years Used Date Smoking Tobacco: Never Passive Smoke Exposure: Past Smokeless Tobacco: Never Alcohol Use Standard Drinks/Week Comments Yes 0 (1 standard drink = 0.6 oz pur e alcohol) Socially [facility] Utilities Answer Date Recorded In the past 12 months has [employer], gas, oil, or water Dr. [employer] threatened to shut off services in your [...] often do you attend chur ch or christian services? More than 4 times per year [...] Answer Date Recorded Total Score 2 03/30/2024 [facility] Answer Date [...] Do you need help finding a [facility] career center and/or a training program? No [...] me that she was currently admitted to [facility] with fever and chills. Per patient, there [...] to provide my number to the social media developer and I can fax the current completed [facility] paperwork to them to submit so that the vac can be delivered to the hospital prior to her discharge. We will plan to schedule her for follow up in the office pending timing of her discharge from [facility]. SHEREEN MORTENSEN PA-C documented in this encounter Plan of Treatment Upcoming Encounters Date Type Department Care Team (Late st Contact Info) Description 10/12/2024 5:00 PM EDT Hospital Encounter [facility] - Surgery [address] [place] [address] Jhon Rosado MD [address], [address] [place] [address] 10/12/2024 5:00 PM EDT - 10/12/2024 6:15 PM EDT Surgery [facility] - Surgery [address] [address] Jhon Rosado MD [address], [facility] [address] [place] [address] DEBRIDEMENT BREAST 10/26/2024 8:30 AM EDT Telephone Visit [facility] Gynecology Oncology, Department of [place] [address] [address] [facility] [address] [place] [address] [place] [address] [place] [address], [address] [place] [address] Scheduled Procedures Name Priority Associated Diagnoses Date/Ti me DEBRIDEMENT BREAST BREAST WOUND LEFT 10/12/2024 5:00 PM EDT documented as of this encounter Goals Goal Patient Goal Type Associated Problems Recent Progress Patient-Stated? 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
--- OUTSIDE RECORDS SUMMARY | 2024-10-10 15:06 | XMS_ITS | Encounter Summary ---
Author Organization [facility] Address [address] [place] [address] Care Team Providers Care Setter Out Name Role Phone Randy Lu MD Primary Care Provider +1 [phone] Encounter Details Date Type Department Care Team (Late Contact Info) Description 04/07/2024 Abstract [facility] [place] [address] Evan Thompson DO [facility] [place], [facility]11 Social History Tobacco Use Types [...] [facility] Suzanne [facility] [address] [place] [address] Evan Thompson DO [address] [place], [facility]11 documented as of this encounter Visit Diagnoses Not on filedocumented in this encounter Care Teams Setter Out Relationship Specialty Start Date End Date Randy Lu MD PCP - General Family Medicine 04/02/23 documented as of this encounter
--- OUTSIDE RECORDS SUMMARY | 2024-10-10 15:06 | XMS_ITS | Encounter Summary ---
Author Organization [facility] [email or web address] [facility] tem Address [id number] [address] [place] [address] Care Team Providers Care Communications And Signals Supervisor Name Role Phone Amy Collier FRONT SIGHT ATTACHER-UNARMED SECURITY OFFICER Primary Care Provider + Reason for Visit * Reason Comments Med Refill Encounter Details Date Type Department Care Team (Late Contact Info) Description 01/24/2022 Refill [facility] Physicians Internal Medicine - Family Medicine [address] [place] [phone] Lynda Manuel, FRONT SIGHT ATTACHER-[employer]SP[employer]ATION [employer] [address] [place] [address] Social History Tobacco Use Types Packs/Day Years [...] 10/12/2024 5:00 PM EDT Hospital Encounter [facility] - Surgery [address] [place] [address] Jhon Rosado MD [address], [address] [place] [address] 10/12/2024 5:00 PM EDT - 10/12/2024 6:15 PM EDT Surgery [facility] - Surgery [address] [place] [address] Jhon Rosado MD [address] [facility] [address], [address] [place] [address] DEBRIDEMENT BREAST 10/26/2024 8:30 AM EDT Telephone Visit [facility] Gynecology Oncology, Department of [place] [address] [facility] [address] [place] [address] Raymond Sepulveda MD [address] [facility], [address] [place] [address] Scheduled Procedures Name Priority Associated Diagnoses Date/Ti me DEBRIDEMENT BREAST BREAST WOUND LEFT 10/12/2024 5:00 PM EDT documented as of this encounter Visit Diagnoses Not on filedocumented in this encounter Additional Health Concerns Infection Onset Date Last Indicated Resolved Time Influenza 03/07/2022 03/07/2022 03/14/2022 11:1 2 PM EST BOBBIN HAULER Comment:LT CHEST WALL TISSUE(08/12/24) 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
--- OUTSIDE RECORDS SUMMARY | 2024-10-10 15:06 | XMS_ITS | Encounter Summary ---
Author Organization [facility] Address [address] [place] [address] Care Team Providers Care Polisher Balance Screwhead Name Role Phone Randy Lu MD Primary Care Provider +[phone] Encounter Details Date Type Department Care Team (Late Contact Info) Description 04/08/2024 Abstract [facility] Suzanne [facility] SOUZA [facility] [place] [address] Evan Thompson DO [facility] [place], [id number] Social History Tobacco Use Types Packs/Day Years [...] [facility] Suzanne DE SOUZA [address] [place] [address] Evan Thompson DO [address] [place], [facility] documented as of this encounter Visit Diagnoses Not on filedocumented in this encounter Care Teams Polisher Balance Screwhead Relationship Specialty Start Date End Date Randy Lu MD PCP - General Family Medicine 04/02/23 documented as of this encounter
--- OUTSIDE RECORDS SUMMARY | 2024-10-10 15:06 | XMS_ITS | Encounter Summary ---
Author Organization [email or web address] Address [facility]-[id number] [address] [place] [address] Care Team Providers Care Farm Truck Driver Name Role Phone Amy Collier RESPIRATORY SUPPORT TECHNICIAN-MENTAL TESTER Primary Care Provider + Encounter Details Date Type Department Care Team (Late st Contact Info) Description 11/25/2023 Orders Only [facility] Plastic and Reconstructive Surgery [address] [facility] [address] [place] [address] Marisela Davila, RESPIRATORY SUPPORT [facility] [address], [address] [place] [address] Social History Tobacco Use Types Packs/Day Years Used Date Smoking Tobacco: Never Smokeless Tobacco: Never Alcohol Use Standard Drinks/Week Comments Yes 0 (1 standard drink = 0.6 oz pur e alcohol) Socially [facility] Utilities Answer Date Recorded In the past 12 months has [employer], gas, oil, or water [employer] threatened to shut off services in your [...] any clubs o r organizations such as buddhist groups, unions, fraternal or athletic groups, or [...] Answer Date Recorded Total Score 0 03/07/2022 [facility] [...] Recorded Do you need help finding a [facility] career center and/or a training program? No [...] Description 10/12/2024 5:00 PM EDT Hospital Encounter [facility] - Surgery [address] [place] [address] Jhon Rosado MD [address], [facility] [address] [place] [address] 10/12/2024 5:00 PM EDT - 10/12/2024 6:15 PM EDT Surgery [facility] Surgery [address] [place] [address] Jhon Rosado MD [address], [address] [facility] [place] [address] DEBRIDEMENT BREAST 10/26/2024 8:30 AM EDT Telephone Visit [facility] Gynecology Oncology, A Department of [place] [address] [place] [address] Raymond Sepulveda MD [address] [place] [address], [address] [place] [address] Scheduled Procedures Name Priority Associated Diagnoses Date/Ti me DEBRIDEMENT BREAST BREAST WOUND LEFT 10/12/2024 5:00 PM EDT documented as of this encounter Visit Diagnoses Not on filedocumented in this encounter Additional Health Concerns Infection Onset Date Last Indicated Resolved Time CUTTER FIRST Comment:LT CHEST WALL TISSUE(08/12/24) 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
--- OUTSIDE RECORDS SUMMARY | 2024-10-10 15:06 | XMS_ITS | Encounter Summary ---
Author Organization [facility] Address [facility][id number] [address] [place] [address] Care Team Providers Care Railroad Signal Operator Name Role Phone Amy Collier SENIOR QUALITY TECHNICIAN-BINDERY MACHINE SETTER Primary Care Provider + Encounter Details Date Type Department Care Team (Late st Contact Info) Description 06/13/2024 Orders Only [facility] Internal Medicine - Family Medicine [address] [place] [address] Ref Prov, [place] [address] Social History Tobacco Use Types Packs/Day Years [...] often do you attend chur ch or restorationist services? More than 4 times per year [...] Recorded Do you need help finding a [facility] career center and/or a training [...] Description 10/12/2024 5:00 PM EDT Hospital Encounter [facility] - Surgery [address] [place] [address] Jhon Rosado MD [address], [facility] [address] [place] [address] 10/12/2024 5:00 PM EDT - 10/12/2024 6:15 PM EDT Surgery [facility] - Surgery [address] [place] [address] Jhon Rosado MD [address], [facility] [address] [place] [phone] DEBRIDEMENT BREAST 10/26/2024 8:30 AM EDT Telephone Visit [facility] Gynecology Oncology, A Department of [place] [address] [address] [facility] [address] [place] [address] Raymond Sepulveda MD [address] [facility], [address] [place] [address] Scheduled Procedures Name Priority Associated Diagnoses Date/Ti me DEBRIDEMENT BREAST BREAST WOUND LEFT 10/12/2024 5:00 PM EDT documented as of this encounter Goals Goal Patient Goal Type Associated Problems Recent Progress Patient-Stated? 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
--- OUTSIDE RECORDS SUMMARY | 2024-10-10 15:06 | XMS_ITS | Encounter Summary ---
Author Organization [employer] Address [facility][id number] [address] [place] [address] Care Team Providers Care Road Contractor Name Role Phone Amy Collier AUTOMOTIVE GENERAL SALES MANAGER-ENGAGEMENT MGR Primary Care Provider + Reason for Referral * Diagnostic Imaging (Routine) - Pending Review Specialty Diagnoses / Procedures Referred By Contac t Referred To Contact Radiology Diagnoses Pain Procedures NON [facility] PET [facility] WHOLE BODY [facility] [address] [place] [phone] Phone: tel: fax: Referral ID Status Reason Start Date Expiration Date V isits Requested Visits Authorized [id number] Pending Review 06/12/2024 06/12/2025 1 1 Encounter Details Date Type Department Care Team (Late st Contact Info) Description 06/12/2024 Orders Only [facility] [address] [place] [phone] Transcribe, Orders Support User Pain (Primary [...] Description 10/12/2024 5:00 PM EDT Hospital Encounter [facility] - Surgery [address] [place] [address] Jhon Rosado MD [address], [facility] [address] [place] [address] 10/12/2024 5:00 PM EDT - 10/12/2024 6:15 PM EDT Surgery [facility] - Surgery [address] [place] [address] Jhon Rosado MD [address], [facility] [address] [facility] [address] DEBRIDEMENT BREAST 10/26/2024 8:30 AM EDT Telephone Visit [facility], A Department of [address] [place] [address] Raymond Sepulveda MD [address] [facility], [address] [place] [address] Scheduled Procedures Name Priority Associated Diagnoses Date/Ti me DEBRIDEMENT BREAST BREAST WOUND LEFT 10/12/2024 5:00 PM EDT documented as of this encounter Goals Goal Patient Goal Type Associated Problems Recent Progress Patient-Stated? 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
--- OUTSIDE RECORDS SUMMARY | 2024-10-10 15:06 | XMS_ITS | Encounter Summary ---
Author Organization [facility] Address [address] [place] [address] Care Team Providers Care Ribber Name Role Phone Randy Lu MD Primary Care Provider +[phone] Encounter Details Date Type Department Care Team (Late Contact Info) Description 04/07/2024 Abstract [facility] Suzanne DE SOUZA [facility] [place] [address] Evan Thompson DO [facility] [place], [facility] Social History Tobacco Use Types Packs/Day Years [...] [facility] Suzanne DE SOUZA [address] [place] [address] Evan Thompson DO [address] [place], [facility] documented as of this encounter Visit Diagnoses Not on filedocumented in this encounter Care Teams Ribber Relationship Specialty Start Date End Date Randy Lu MD PCP - General Family Medicine 04/02/23 documented as of this encounter
--- OUTSIDE RECORDS SUMMARY | 2024-10-10 15:06 | XMS_ITS | Patient Health Record ---
Author Organization [facility] [place] Address [address] [place] [address] Care Team Providers Care Vacuum Tester Cans Name Role Phone Mar GUY Lynda Primary Care Provider Latesha Nathanorva Unavailable [phone] Results Component Value Reference Range Notes CBC AUTO DIFF (Not yet revie wed by provider) Interpretation: Performing Lab: Notes/Report: [facility] , White Blood Count 5.6 4.0-11.0 10 [...] Performing Lab: see note ML - [facility] LB MAGNESIUM (Not yet reviewed by provider) Interpretation: Performing Lab: Notes/Report: [facility] , Magnesium 1.5 1.8-2.4 mg/dL Performing Lab: see note - [facility] LB PROF 14(COMP METB) (Not yet reviewed by provider) Interpretation: Performing Lab: Notes/Report: [facility] , Sodium 138 136-145 mmol/L Potassium 3.0 [...] Performing Lab: see note ML - [facility] LB PET skull to mid thigh (Not yet reviewed by provider) Interpretation: Performing Lab: Notes/Report: Source Facility: [facility]-[address] [place] [address] [place] [address] PET Report Signed Patient: YASMIN JONES MR#: [id number] : 1970 Acct:[id number] Age/Sex: 53 / F ADM Date: 10/26/23 Loc: PETCT Attending Dr: Aarti Hope M.D. Ordering Physician: Aarti Hope M.D. Date of Service: 10/26/23 Procedure(s): PET skull to mid thigh Accession Number(s): [id number] cc: Aarti Hope M.D.; LYNDA JARQUIN [place] [id number] Patient Name: YASMIN JONES MRN: [id number] date: 1970 Sex: F Assigned Patient Location: PETCT Current Patient Location: [facility] Accession/Order Number: [id number] Exam Date: 10/26/2023 16:24 Report Date: 11/01/2023 [...] Signed By: 11/01/23 1121 DD/ 1118 TD/TT: Refurbish Technician: [place] [address] PET Report Signed Patient: YASMIN JONES MR#: [id number] : 1970 Acct:[id number] Age/Sex: 53 / F ADM Date: 10/26/23 Loc: PETCT Attending Dr: Arturo Hope M.D. Ordering Physician: Aarti Hope M.D. Date of Service: 10/26/23 Procedure(s): PET skull to mid thigh Accession Number(s): [id number] cc: Aarti Hope M.D.; LYNDA JARQUIN [place] [id number] Patient Name: YASMIN JONES MRN: [id number] date: 1970 Sex: F Assigned Patient Location: PETCT Current Patient Location: [facility] Accession/Order Number: [id number] Exam Date: 10/26/2023 16:24 Report Date: 11/01/2023 [...] Signed By: 11/01/23 1121 DD/ 1118 TD/TT: Refurbish Technician: LAB TESTING (Not yet reviewe d by provider) Interpretation: Performing Lab: Notes/Report: 542803 [facility] Ant[facility] (CA) [facility] , Miscellaneous Test COMMENT . Test Ordered: [id number] Cancer Antigen (CA) 15-3 Cancer Antigen 15-3 29.1 [H ] U/mL Reference Range: 0.0-25.0 [facility] Electrochemiluminescence Immunoassay (ECLIA) Values obtained with different assay methods or kits cannot be used interchangeably. Results cannot be interpreted as absolute evidence of the presence or absence of malignant disease. Performed at: - [facility] [id number] [employer]: Vik Georges PhD, Phone: [phone] Performing Lab: see note - [facility] LB CREATININE (Not yet reviewed by provider) Interpretation: Performing Lab: Notes/Report: [facility] , Creatinine 1.09 0.55-1.02 mg/dL Estimated GFR ( Joanna >60 >=60 mL/min/1.73m 2 Estimated GFR (Non- Le 53 >=60 mL/min/1.73m 2 Performing Lab: see note ML - [facility] LB LIVER PROFILE (Not yet revie wed by provider) Interpretation: Performing Lab: Notes/Report: [facility] , Bilirubin Total 1.0 0.2-1.0 mg/dL Bilirubin Direct 0.2 0.0-0.2 mg/dL Aspartate Amino Transferase 36 15-37 U/L Alanine Aminotransferase 50 14-59 U/L Alkaline Phosphatase 83 46-116 U/L Total Protein 6.6 6.4-8.2 g/dL Albumin Level 3.4 3.4-5.0 g/dL Globulin 3.2 Albumin Globulin Ratio 1.1 Performing Lab: see note ML - [facility] LB Platelet Count (Not yet revi ewed by provider) Interpretation: Performing Lab: Notes/Report: [facility] , Platelet Count 168 150-450 10 3/uL Performing Lab: see note ML - [facility] LB White Blood Count (Not yet r eviewed by provider) Interpretation: Performing Lab: Notes/Report: [facility] , White Blood Count 2.6 4.0-11.0 10 3/uL Performing Lab: see note ML - [facility] LB CREATININE (Not yet reviewed by provider) Interpretation: Performing Lab: Notes/Report: [facility] , Creatinine 1.12 0.55-1.02 mg/dL Estimated GFR ( Joanna >60 >=60 mL/min/1.73m 2 Estimated GFR (Non- Le 51 >=60 mL/min/1.73m 2 Performing Lab: see note ML - [facility] LB LIVER PROFILE (Not yet revie wed by provider) Interpretation: Performing Lab: Notes/Report: [facility] , Bilirubin Total 0.8 0.2-1.0 mg/dL Bilirubin Direct 0.2 0.0-0.2 mg/dL Aspartate Amino Transferase 84 15-37 U/L Alanine Aminotransferase 126 14-59 U/L Alkaline Phosphatase 91 46-116 U/L Total Protein 6.6 6.4-8.2 g/dL Albumin Level 3.6 3.4-5.0 g/dL Globulin 3.0 Albumin Globulin Ratio 1.2 Performing Lab: see note ML - [facility] LB CBC AUTO DIFF (Not yet revie wed by provider) Interpretation: Performing Lab: Notes/Report: [facility] , White Blood Count 3.1 4.0-11.0 10 [...] 10 3/uL Performing Lab: see note - [facility] LB PROF 14(COMP METB) (Not yet reviewed by provider) Interpretation: Performing Lab: Notes/Report: [facility] , Sodium 140 136-145 mmol/L Potassium 3.3 [...] Performing Lab: see note ML - [facility] LB Packed Red Blood Cells (Not yet reviewed by provider) Interpretation: Performing Lab: Notes/Report: Packed Red Blood Cells [id number] ON RC TRANSFUSED 02/09/24 1619 Type and Screen (Not yet rev iewed by provider) Interpretation: Performing Lab: Notes/Report: [facility] , Blood Type O Negative Antibody Screen NEGATIVE TSH W/ REFLEX FT4 (Not yet r eviewed by provider) Interpretation: Performing Lab: Notes/Report: [facility] , TSH W/ REFLEX FT4 2.132 0.358-3.740 uIU/mL Performing Lab: see note ML - [facility] LB BILIRUBIN CONJUGATED (DIRECT ) (Not yet reviewed by provider) Interpretation: Performing Lab: Notes/Report: [facility] , Bilirubin Direct 0.2 0.0-0.2 mg/dL Performing Lab: see note ML - [facility] LB CBC AUTO DIFF (Not yet revie wed by provider) Interpretation: Performing Lab: Notes/Report: [facility] , White Blood Count 3.8 4.0-11.0 10 [...] Performing Lab: see note ML - [facility] LB PROF 14(COMP METB) (Not yet reviewed by provider) Interpretation: Performing Lab: Notes/Report: [facility] , Sodium 142 136-145 mmol/L Potassium 3.4 [...] Performing Lab: see note ML - [facility] LB TSH W/ REFLEX FT4 (Not yet r eviewed by provider) Interpretation: Performing Lab: Notes/Report: [facility] , TSH W/ REFLEX FT4 1.691 0.358-3.740 uIU/mL Performing Lab: see note ML - [facility] LB BILIRUBIN CONJUGATED (DIRECT ) (Not yet reviewed by provider) Interpretation: Performing Lab: Notes/Report: [facility] , Bilirubin Direct 0.2 0.0-0.2 mg/dL Performing Lab: see note ML - [facility] LB PROF 14(COMP METB) (Not yet reviewed by provider) Interpretation: Performing Lab: Notes/Report: [facility] , Sodium 142 136-145 mmol/L Potassium 3.3 [...] Performing Lab: see note ML - [facility] LB CBC AUTO DIFF (Not yet revie wed by provider) Interpretation: Performing Lab: Notes/Report: [facility] , White Blood Count 4.7 4.0-11.0 10 [...] 10 3/uL Performing Lab: see note - [facility] LB CBC AUTO DIFF (Not yet revie wed by provider) Interpretation: Performing Lab: Notes/Report: [facility] , White Blood Count 4.1 4.0-11.0 10 [...] 9.7 9.5-13.5 fL Performing Lab: see note - [facility] LB Manual Differential (Not yet reviewed by provider) Interpretation: Performing Lab: Notes/Report: [facility] , Segmented Neutrophils % Manual 64.0 [...] 0 3/uL Performing Lab: see note - [facility] LB BILIRUBIN CONJUGATED (DIRECT ) (Not yet reviewed by provider) Interpretation: Performing Lab: Notes/Report: [facility] , Bilirubin Direct 0.2 0.0-0.2 mg/dL Performing Lab: see note - [facility] LB CBC AUTO DIFF (Not yet revie wed by provider) Interpretation: Performing Lab: Notes/Report: [facility] , White Blood Count 4.4 4.0-11.0 10 [...] Performing Lab: see note ML - [facility] LB PROF 14(COMP METB) (Not yet reviewed by provider) Interpretation: Performing Lab: Notes/Report: [facility] , Sodium 140 136-145 mmol/L Potassium 3.8 [...] Globulin Ratio 1.5 Performing Lab: see note ML - [facility] LB CBC AUTO DIFF (Not yet revie wed by provider) Interpretation: Performing Lab: Notes/Report: [facility] , White Blood Count 4.1 4.0-11.0 10 [...] Performing Lab: see note ML - [facility] LB PROF 14(COMP METB) (Not yet reviewed by provider) Interpretation: Performing Lab: Notes/Report: [facility] , Sodium 145 136-145 mmol/L Potassium 3.4 [...] 1.4 Performing Lab: see note ML - [facility] LB BILIRUBIN CONJUGATED (DIRECT ) (Not yet reviewed by provider) Interpretation: Performing Lab: Notes/Report: [facility] , Bilirubin Direct 0.2 0.0-0.2 mg/dL Performing Lab: see note ML - [facility] LB CBC AUTO DIFF (Not yet revie wed by provider) Interpretation: Performing Lab: Notes/Report: [facility] , White Blood Count 6.0 4.0-11.0 10 [...] 3/uL Performing Lab: see note ML - [facility] LB PROF 14(COMP METB) (Not yet reviewed by provider) Interpretation: Performing Lab: Notes/Report: [facility] , Sodium 143 136-145 mmol/L Potassium 3.3 [...] Performing Lab: see note ML - [facility] LB Packed Red Blood Cells (Not yet reviewed by provider) Interpretation: Performing Lab: Notes/Report: Packed Red Blood Cells [id number] ON RC TRANSFUSED 04/01/24 1444 Type and Screen (Not yet rev iewed by provider) Interpretation: Performing Lab: Notes/Report: [facility] , Blood Type O Negative Antibody Screen NEGATIVE CBC AUTO DIFF (Not yet revie wed by provider) Interpretation: Performing Lab: Notes/Report: [facility] , White Blood Count 5.2 4.0-11.0 10 [...] Performing Lab: see note ML - [facility] LB PROF 14(COMP METB) (Not yet reviewed by provider) Interpretation: Performing Lab: Notes/Report: [facility] , Sodium 141 136-145 mmol/L Potassium [...] Performing Lab: see note ML - [facility] LB TSH (Not yet reviewed by pro vider) Interpretation: Performing Lab: Notes/Report: [facility] , Thyroid Stimulating Hormone 0.288 0.358-3.740 uIU/mL Performing Lab: see note ML - [facility] LB Blood Culture 2 (Not yet rev iewed by provider) Interpretation: Performing Lab: Notes/Report: [facility] , Blood Culture 2 See Below For Report Blood Culture 2 NG5D NO GROWTH AT 5 DAYS.^NO GROWTH AT 5 DAYS. Performing Lab: see note ML - [facility] LB Immunoglobulins A/E/G/M, Ser um (Not yet reviewed by provider) Interpretation: Performing Lab: Notes/Report: [facility] , Immunoglobulin G, Qn, Serum 458 374-5784 mg/dL Immunoglobulin A, Qn, Serum 87 87-352 mg/dL Immunoglobulin M, Qn, Serum 51 26-217 mg/dL Immunoglobulin E, Total <2 6-495 IU/mL Performed at: [address] [id number] [employer]: Vik Georges PhD, Phone: [phone] Performed at: BN - [address] [id number] [employer]: Perla Henderson MD, Phone: [phone] Performing Lab: see note - [facility] LB CBC AUTO DIFF (Not yet revie wed by provider) Interpretation: Performing Lab: Notes/Report: [facility] , White Blood Count 6.5 4.0-11.0 10 [...] 10 3/uL Performing Lab: see note - [facility] LB Amikacin Trough, Serum (Not yet reviewed by provider) Interpretation: Performing Lab: Notes/Report: [facility] , Amikacin Trough, Serum <0.8 1.0-8.0 ug/mL Verified by repeat analysis Detection Limit = 0.8 <0.8 indicates None Detected Performed at: [facility] [id number] [employer]: Vik Georges PhD, Phone: [phone] Performing Lab: see note LC - [facility] LB Amikacin Peak, Serum (Not ye t reviewed by provider) Interpretation: Performing Lab: Notes/Report: [facility] , Amikacin Peak, Serum 22.1 20.0-30.0 ug/mL Detection Limit = 0.8 <0.8 indicates None Detected Performed at: [facility] [id number] [employer]: Vik Georges PhD, Phone: [phone] Performing Lab: see note LC - [facility] LB APTT (Not yet reviewed [...] physician of this order is STEPHEN Garcias Surgical Pathology ([facility]) (Not yet reviewed by provider) Interpretation: Performing Lab:[facility]), [address], [place]. [address] PH:[phone] Notes/Report: The previously reported component Microscopic Description is no longer being reported. SURGICAL PATHOLOGY SEE RESULTS BELOW SPECIMEN SOURCE Tissue Liver LAB AP CASE REPORT: Surgical Pathology Report Case: [id number] Authorizing Provider: Guillaume Curiel MD Collected: 07/11/2024 1449 Ordering Location: [facility] Received: 07/11/[address] [facility] - Interventional Radiology Pathologist: Bautista Stevens [...] positive for ER, and negative for CK19, TN and CDX2 with adequate controls, supporting the above diagnosis. LAB AP ADDENDUM 1: ADDENDUM from [facility] (08/08/2024) Breast biomarkers (ER, PgR, and HER2) performed at the outside institution are available for review at the [facility] and demonstrate the tumor cells to [...] entirely in a single cassette. (1, ns, [id number], m2) TRISTAN GEORGE SYNOPTIC CHECKLIST: Breast Biomarker Reporting Template BREAST [...] performed Addendum to CC Consult, Liver mass, [facility], 08/08/2024 PERFORMED AT [facility] [address],[place] [address] PROTIME (Not yet reviewed by provider) Interpretation: Performing Lab: Notes/Report: PROTIME 10.9 9.8-13.2 sec INR 1.0 0.9-1.2 NA The copy-to physician of this order is GUILLAUME Lion The ordering physician of this order is STEPHEN Garcias CBC AUTO DIFF (Not yet revie wed by provider) Interpretation: Performing Lab: Notes/Report: [facility] , White Blood Count 5.6 4.0-11.0 10 [...] Performing Lab: see note ML - [facility] LB PROF 14(COMP METB) (Not yet reviewed by provider) Interpretation: Performing Lab: Notes/Report: [facility] , Sodium 142 136-145 mmol/L Potassium 4.0 [...] Performing Lab: see note ML - [facility] LB PROF 14(COMP METB) (Not yet reviewed by provider) Interpretation: Performing Lab: Notes/Report: [facility] , Sodium 140 136-145 mmol/L Potassium 3.8 [...] Performing Lab: see note ML - [facility] LB Amikacin Trough, Serum (Not yet reviewed by provider) Interpretation: Performing Lab: Notes/Report: [facility] , Amikacin Trough, Serum <0.8 1.0-8.0 ug/mL Verified by repeat analysis Detection Limit = 0.8 <0.8 indicates None Detected Performed at: - [facility] [place] [id number] [employer]: Vik Georges PhD, Phone: [phone] Performing Lab: see note - [facility] LB LIVER PROFILE (Not yet revie wed by provider) Interpretation: Performing Lab: Notes/Report: [facility] , Bilirubin Total 0.6 0.2-1.0 mg/dL Bilirubin Direct 0.1 0.0-0.2 mg/dL Aspartate Amino Transferase 18 15-37 U/L Alanine Aminotransferase 21 14-59 U/L Alkaline Phosphatase 81 46-116 U/L Total Protein 6.2 6.4-8.2 g/dL Albumin Level 2.9 3.4-5.0 g/dL Globulin 3.3 Albumin Globulin Ratio 0.9 Performing Lab: see note ML - [facility] LB CREATININE (Not yet reviewed by provider) Interpretation: Performing Lab: Notes/Report: [facility] , Creatinine 0.82 0.55-1.02 mg/dL Estimated GFR ( Joanna >60 >=60 mL/min/1.73m 2 Estimated GFR (Non- Le >60 >=60 mL/min/1.73m 2 Performing Lab: see note ML - [facility] LB CBC AUTO DIFF (Not yet revie wed by provider) Interpretation: Performing Lab: Notes/Report: [facility] , White Blood Count 5.6 4.0-11.0 10 [...] Performing Lab: see note ML - [facility] LB LIVER PROFILE (Not yet revie wed by provider) Interpretation: Performing Lab: Notes/Report: [facility] , Bilirubin Total 0.5 0.2-1.0 mg/dL Bilirubin Direct 0.1 0.0-0.2 mg/dL Aspartate Amino Transferase 24 15-37 U/L Alanine Aminotransferase 36 14-59 U/L Alkaline Phosphatase 102 46-116 U/L Total Protein 5.9 6.4-8.2 g/dL Albumin Level 2.9 3.4-5.0 g/dL Globulin 3.0 Albumin Globulin Ratio 1.0 Performing Lab: see note ML - [facility] LB CREATININE (Not yet reviewed by provider) Interpretation: Performing Lab: Notes/Report: [facility] , Creatinine 0.77 0.55-1.02 mg/dL Estimated GFR ( Joanna >60 >=60 mL/min/1.73m 2 Estimated GFR (Non- Le >60 >=60 mL/min/1.73m 2 Performing Lab: see note - [facility] LB LAB TESTING (Not yet reviewe d by provider) Interpretation: Performing Lab: Notes/Report: [id number] AMIKACIN,PEAK [facility] , Miscellaneous Test COMMENT . Test Ordered: [id number] Amikacin Peak, Serum Amikacin Peak, Serum 19.4 [L ] ug/mL CB Reference Range: 20.0-30.0 Detection Limit = 0.8 <0.8 indicates None Detected Performed at: [facility] - [facility] [place] [id number] [employer]: Vik Georges PhD, Phone: [phone] Performing Lab: see note LC - [facility] LB CT abdomen pelvis w con (Not yet reviewed by provider) Interpretation: Performing Lab: Notes/Report: Source Facility: [place] [address] [place] [address] CT Scan Report Signed Patient: YASMIN JONES MR#: [id number] : 1970 Acct:[id number] Age/Sex: 53 / F ADM Date: 04/29/24 Loc: CT Attending Dr: Aarti Hope M.D. Ordering Physician: Aarti Hope M.D. Date of Service: 04/29/24 Procedure(s): CT abdomen pelvis w con Accession Number(s): [id number] cc: Physician,Non-Staff Josselyn [place] [address] Patient Name: YASMIN JONES MRN: [id number] date: 1970 Sex: F Assigned Patient Location: CT Current Patient Location: CARD Accession/Order Number: [id number] Exam Date: 04/29/2024 12:21 Report Date: 04/29/2024 [...] mediastinal lymph nodes. There is a left-sided Ayicsc-c-Gosw catheter. Patient has had interval bilateral mastectomy. There is a suspected mica patcher on the right. On the left, there [...] Seema Martin M.D.04/29/2024 12:54 PM Dictation Location: [place] [address] Electronically authenticated by: [id number] Y Date: 04/29/2024 12:54 Dictated By: Seema Martin M.D. Signed By: 04/29/24 1257 DD/ 1254 TD/TT: Refurbish Technician: [place] [address] CT Scan Report Signed Patient: YASMIN JONES MR#: [id number] : 1970 Acct:[id number] Age/Sex: 53 / F ADM Date: 04/29/24 Loc: CT Attending Dr: Arturo Hope M.D. Ordering Physician: Aarti Hope M.D. Date of Service: 04/29/24 Procedure(s): CT abdomen pelvis w con Accession Number(s): [id number] cc: Physician,Non-Staff Josselyn [place] [address] Patient Name: YASMIN JONES MRN: [id number] date: 1970 Sex: F Assigned Patient Location: CT Current Patient Location: CARD Accession/Order Number: [id number] Exam Date: 04/29/2024 12:21 Report Date: 04/29/2024 [...] mediastinal lymph nodes. There is a left-sided Dcxalz-w-Ekrq catheter. Patient valverde s had interval bilateral mastectomy. There is a suspected mica patcher o n the right. On the left, [...] Seema Martin M.D.04/29/2024 12:54 PM Dictation Location: [place] [address] Electronically authenticated by: [id number] Y Date: 04/29/2024 12:54 Dictated By: Seema Martin M.D. Signed By: 04/29/24 1257 DD/ 1254 TD/TT: Refurbish Technician: CT CHEST W CON (Not yet revi ewed by provider) Interpretation: Performing Lab: Notes/Report: Source Facility: [place] [address] [place] [address] CT Scan Report Signed Patient: YASMIN JONES MR#: [id number] : 1970 Acct:[id number] Age/Sex: 53 / F ADM Date: 04/29/24 Loc: CT Attending Dr: Aarti Hope M.D. Ordering Physician: Aarti Hope M.D. Date of Service: 04/29/24 Procedure(s): CT chest w con Accession Number(s): [id number] cc: Physician,Non-Staff Josselyn The [place] [address] Patient Name: YASMIN JONES MRN: [id number] date: 1970 Sex: F Assigned Patient Location: CT Current Patient Location: CARD Accession/Order Number: [id number] Exam Date: 04/29/2024 12:21 Report Date: 04/29/2024 [...] mediastinal lymph nodes. There is a left-sided Wlnlby-m-Rgso catheter. Patient has had interval bilateral mastectomy. There is a suspected mica patcher on the right. On the left, there [...] Seema Martin M.D.04/29/2024 12:54 PM Dictation Location: [place] [address] Electronically authenticated by: [id number] Y Date: 04/29/2024 12:54 Dictated By: Seema Martin M.D. Signed By: 04/29/24 1257 DD/ 1254 TD/TT: Refurbish Technician: [place] [address] CT Scan Report Signed Patient: YASMIN JONES MR#: [id number] : 1970 Acct:[id number] Age/Sex: 53 / F ADM Date: 04/29/24 Loc: CT Attending Dr: Arturo Hope M.D. Ordering Physician: Aarti Hope M.D. Date of Service: 04/29/24 Procedure(s): CT chest w con Accession Number(s): [id number] cc: Physician,Non-Staff M.DStarr The [address] [address] Patient Name: YASMIN OJNES MRN: [id number] date: 1970 Sex: F Assigned Patient Location: CT Current Patient Location: CARD Accession/Order Number: [id number] Exam Date: 04/29/2024 12:21 Report Date: 04/29/2024 [...] mediastinal lymph nodes. There is a left-sided Jzsamx-d-Btjk catheter. Patient valverde s had interval bilateral mastectomy. There is a suspected mica patcher o n the right. On the left, [...] Seema Martin M.D.04/29/2024 12:54 PM Dictation Location: [place] [address] Electronically authenticated by: [id number] Y Date: 04/29/2024 12:54 Dictated By: Seema Martin M.D. Signed By: 04/29/24 1257 DD/ 1254 TD/TT: Refurbish Technician: Blood Culture 1 (Not yet rev iewed by provider) Interpretation: Performing Lab: Notes/Report: [facility] , Blood Culture 1 See Below For Report Blood Culture 1 NG5D NO GROWTH AT 5 DAYS.^NO GROWTH AT 5 DAYS. Performing Lab: see note ML - [facility] LB CBC AUTO DIFF (Not yet revie wed by provider) Interpretation: Performing Lab: Notes/Report: [facility] , White Blood Count 5.3 4.0-11.0 10 [...] Performing Lab: see note ML - [facility] LB PROF 14(COMP METB) (Not yet reviewed by provider) Interpretation: Performing Lab: Notes/Report: [facility] , Sodium 141 136-145 mmol/L Potassium 3.7 [...] Performing Lab: see note ML - [facility] LB BILIRUBIN CONJUGATED (DIRECT ) (Not yet reviewed by provider) Interpretation: Performing Lab: Notes/Report: [facility] , Bilirubin Direct 0.1 0.0-0.2 mg/dL Performing Lab: see note ML - [facility] LB Manual Differential (Not yet reviewed by provider) Interpretation: Performing Lab: Notes/Report: [facility] , Segmented Neutrophils % Manual 76.0 43.0-75.0 [...] Performing Lab: see note ML - [facility] LB TSH (Not yet reviewed by pro vider) Interpretation: Performing Lab: Notes/Report: [facility] , Thyroid Stimulating Hormone 1.427 0.358-3.740 uIU/mL Performing Lab: see note ML - [facility] LB PROF 14(COMP METB) (Not yet reviewed by provider) Interpretation: Performing Lab: Notes/Report: [facility] [facility] , Sodium 143 136-145 mmol/L Potassium 3.3 [...] Performing Lab: see note ML - [facility] LB CBC AUTO DIFF (Not yet revie wed by provider) Interpretation: Performing Lab: Notes/Report: [facility] , White Blood Count 5.5 4.0-11.0 10 [...] Performing Lab: see note ML - [facility] LB BILIRUBIN CONJUGATED (DIRECT ) (Not yet reviewed by provider) Interpretation: Performing Lab: Notes/Report: [facility] , Bilirubin Direct 0.2 0.0-0.2 mg/dL Performing Lab: see note ML - [facility] LB BILIRUBIN CONJUGATED (DIRECT ) (Not yet reviewed by provider) Interpretation: Performing Lab: Notes/Report: [facility] , Bilirubin Direct 0.2 0.0-0.2 mg/dL Performing Lab: see note ML - [facility] LB TSH (Not yet reviewed by pro vider) Interpretation: Performing Lab: Notes/Report: [facility] , Thyroid Stimulating Hormone 3.729 0.358-3.740 uIU/mL Performing Lab: see note ML - [facility] LB PROF 14(COMP METB) (Not yet reviewed by provider) Interpretation: Performing Lab: Notes/Report: [facility] , Sodium 146 136-145 mmol/L Potassium 3.5 [...] Performing Lab: see note ML - [facility] LB BILIRUBIN CONJUGATED (DIRECT ) (Not yet reviewed by provider) Interpretation: Performing Lab: Notes/Report: [facility] , Bilirubin Direct 0.2 0.0-0.2 mg/dL Performing Lab: see note ML - [facility] LB CBC AUTO DIFF (Not yet revie wed by provider) Interpretation: Performing Lab: Notes/Report: [facility] , White Blood Count 3.1 4.0-11.0 10 [...] Performing Lab: see note ML - [facility] LB TSH W/ REFLEX FT4 (Not yet r eviewed by provider) Interpretation: Performing Lab: Notes/Report: [facility] , TSH W/ REFLEX FT4 2.328 0.358-3.740 uIU/mL Performing Lab: see note ML - [facility] LB Erythrocyte Sedimentation Ra te (Not yet reviewed by provider) Interpretation: Performing Lab: Notes/Report: [facility] , Erythrocyte Sedimentation Rate <1 <=30 mm/hr Performing Lab: see note ML - [facility] LB PROF 14(COMP METB) (Not yet reviewed by provider) Interpretation: Performing Lab: Notes/Report: [facility] , Sodium 146 136-145 mmol/L Potassium 2.8 3.5-5.1 mmol/L RESULTS SERRA D TO MALLIKA BAKER RN at 1015 Chloride 107 98-107 mmol/L Carbon [...] Performing Lab: see note ML - [facility] LB CRP (Not yet reviewed by pro vider) Interpretation: Performing Lab: Notes/Report: [facility] , C Reactive Protein <0.50 <=0.50 mg/dL Performing Lab: see note - [facility] LB CBC AUTO DIFF (Not yet revie wed by provider) Interpretation: Performing Lab: Notes/Report: [facility] , White Blood Count 2.5 4.0-11.0 10 [...] 10 3/uL Performing Lab: see note - [facility] LB BILIRUBIN CONJUGATED (DIRECT ) (Not yet reviewed by provider) Interpretation: Performing Lab: Notes/Report: [facility] , Bilirubin Direct 0.3 0.0-0.2 mg/dL Performing Lab: see note - [facility] LB PROF 14(COMP METB) (Not yet reviewed by provider) Interpretation: Performing Lab: Notes/Report: [facility] , Sodium 144 136-145 mmol/L Potassium 3.2 [...] Performing Lab: see note ML - [facility] LB White Blood Count (Not yet r eviewed by provider) Interpretation: Performing Lab: Notes/Report: [facility] , White Blood Count 3.8 4.0-11.0 10 3/uL Performing Lab: see note ML - [facility] LB Platelet Count (Not yet revi ewed by provider) Interpretation: Performing Lab: Notes/Report: [facility] , Platelet Count 181 150-450 10 3/uL Performing Lab: see note - [facility] LB LAB TESTING (Not yet reviewe d by provider) Interpretation: Performing Lab: Notes/Report: [id number] Cancer Antigen (CA) 27.29 [facility] , Miscellaneous Test COMMENT . Test Ordered: [id number] CA 27.29 CA 27.29 23.5 U/mL Reference Range: 0.0-38.6 Siemens Factabaseaur Immunochemiluminometric Methodology (ICMA) Values obtained with different assay methods or kits cannot be used interchangeably. Results cannot be interpreted as absolute evidence of the presence or absence of malignant disease. Performed at: - [facility] [address] [id number] [employer]er: Vik Georges PhD, Phone: [phone] Performing Lab: see note - [facility] LB PROF 14(COMP METB) (Not yet reviewed by provider) Interpretation: Performing Lab: Notes/Report: [facility] , Sodium 139 136-145 mmol/L Potassium 3.1 [...] Performing Lab: see note ML - [facility] LB MAGNESIUM (Not yet reviewed by provider) Interpretation: Performing Lab: Notes/Report: [facility] , Magnesium 1.5 1.8-2.4 mg/dL Performing Lab: see note ML - [facility] LB CBC AUTO DIFF (Not yet revie wed by provider) Interpretation: Performing Lab: Notes/Report: [facility] , White Blood Count 7.3 4.0-11.0 10 [...] Performing Lab: see note ML - [facility] LB Manual Differential (Not yet reviewed by provider) Interpretation: Performing Lab: Notes/Report: [facility] , Segmented Neutrophils % Manual 69.0 43.0-75.0 [...] Performing Lab: see note ML - [facility] LB PROF 14(COMP METB) (Not yet reviewed by provider) Interpretation: Performing Lab: Notes/Report: [facility] , Sodium 141 136-145 mmol/L Potassium 2.8 [...] Performing Lab: see note ML - [facility] LB CBC AUTO DIFF (Not yet revie wed by provider) Interpretation: Performing Lab: Notes/Report: [facility] , White Blood Count 4.4 4.0-11.0 10 [...] fL Performing Lab: see note ML - [facility] LB Vitamin B12 (Not yet reviewe d by provider) Interpretation: Performing Lab: Notes/Report: [facility] , Vitamin B12 >1999 232-1245 pg/mL Performed at: [facility] [id number] [place] [employer]: Vik Georges PhD, Phone: [phone] Performing Lab: see note - [facility] LB IRON AND TIBC (Not yet revie wed by provider) Interpretation: Performing Lab: Notes/Report: [facility] , Iron 71.0 50.0-170.0 ug/dL Total Iron Binding Capacity 306.0 250.0-450.0 ug/dL Percent Iron Saturation 23.2 Performing Lab: see note ML - [facility] LB FOLATE (Not yet reviewed by provider) Interpretation: Performing Lab: Notes/Report: [facility] , Folate 7.70 8.60-58.90 ng/mL Performing Lab: see note - [facility] LB FERRITIN (Not yet reviewed b y provider) Interpretation: Performing Lab: Notes/Report: [facility] , Ferritin 669.0 8.0-252.0 ng/mL Performing Lab: see note ML - [facility] LB CT head/brain wo/w con (Not yet reviewed by provider) Interpretation: Performing Lab: Notes/Report: Source Facility: [facility]-[address] [place] [address] [place] [address] CT Scan Report Signed Patient: YASMIN JONES MR#: [id number] : 1970 Acct:[id number] Age/Sex: 53 / F ADM Date: 08/25/24 Loc: CT Attending Dr: Aarti Hope M.D. Ordering Physician: Aarti Hope M.D. Date of Service: 08/25/24 Procedure(s): CT head/brain wo/w con Accession Number(s): [id number] cc: LYNDA JARQUIN [place] [address] Patient Name: YASMIN JONES MRN: [id number] date: 1970 Sex: F Assigned Patient Location: CT Current Patient Location: [facility] Accession/Order Number: [id number] Exam Date: 08/25/2024 09:31 Report Date: 08/25/2024 [...] Martin M.D. 08/25/2024 9:46 AM Dictation Location: [place] [address] Electronically authenticated by: [id number] Y Date: 08/25/2024 09:46 Dictated By: Seema Martin M.D. Signed By: 08/25/24948 DD/ 5 TD/TT: Refurbish Technician: [place] [address] CT Scan Report Signed Patient: YASMIN JONES MR#: [id number] : 1970 Acct:[id number] Age/Sex: 53 / F ADM Date: 08/25/24 Loc: CT Attending Dr: Arturo Hope M.D. Ordering Physician: Aarti Hope M.D. Date of Service: 08/25/24 Procedure(s): CT head/brain wo/w con Accession Number(s): [id number] cc: LYNDA JARQUIN [place] [address] Patient Name: YASMIN JONES MRN: [id number] date: 1970 Sex: F Assigned Patient Location: CT Current Patient Location: [facility] Accession/Order Number: [id number] Exam Date: 08/25/2024 09:31 Report Date: 08/25/2024 [...] Martin M.D. 08/25/2024 9:46 AM Dictation Location: [place] [address] Electronically authenticated by: [id number] Y Date: 08/25/2024 09:46 Dictated By: Seema Martin M.D. Signed By: 08/25/24 0949 DD/ TD/TT: Refurbish Technician: Reason For Referral No Information Encounters Encounter Location Date Provider Diagnosis [facility] [address] [place] [address], [place] [address] 06/07/2024 Aarti [facility] [address] [place] [address], [place] [address] 01/05[facility] [address] [place] [address], [place] [address] 05/17[facility] [place] [facility] [address] 07/05/2024 [facility] [place] [facility] [address] 07/26/2024 [facility] [place] [facility] [address] 02/09/2024 [facility] [place] [facility] [place] [address] 03/15/20[facility] [address] [place] [facility] [place] [address] 04/12/2024 [facility] [place] [facility] [place] [address] 12/10/2023 [facility] [address] [place] [facility] [place] [address] 09/20/2024 [facility] [address] [place] [facility] [address] 02/19/2024 [facility] [address] [place] [facility] [place] [address] 03/11/2024 [facility] [address] [place] [facility] [address] 04/01/2024 [facility] [address] [place] [facility] [address] 04/22/2024 [facility] [address] [place] [facility] [address] 11/12/2023 [facility] [address] [place] [facility] [address] 10/13/2023 Aarti Hope Plan Of Treatment Pending Test Test [...] Next Appt Details Provider Name:Aarti Hope , 10/11/2024 08:30:00 AM, [address] [place], [address], Insurance Providers Payer Name Payer Address Payer Phone Subscriber Number Group Number Insured Name Patient Relationship to Insured Coverage Start Date Coverage End Date [employer] [place] [address] [place] [address] [id number] [place]PHCP Yasmin Jones Self - patient is the insured
--- OUTSIDE RECORDS SUMMARY | 2024-10-10 15:06 | XMS_ITS | Encounter Summary ---
Author Organization [facility] Address [id number] [address] [place] [address] Care Team Providers Care Data Modeler Name Role Phone Amy Collier FILLER SHAKER-ENTERTAINMENT MUSICIAN Primary Care Provider + Encounter Details Date Type Department Care Team (Late st Contact Info) Description 09/14/2023 Orders Only [facility] Internal Medicine - Family Medicine [address] [place] [address] Ref Prov, [place] [address] Social History Tobacco Use Types Packs/Day Years [...] How often do you attend chur or rastafari services? More than 4 times [...] Description 10/12/2024 5:00 PM EDT Hospital Encounter [facility] Division [facility] - Surgery [address] [place] [address] Jhon Rosado MD [address] [facility], [facility] [address] [place] [address] 10/12/2024 5:00 PM EDT - 10/12/2024 6:15 PM EDT Surgery [facility] - Surgery [address] [place] [address] Jhon Rosado MD [address], [facility] [address] [place] [phone] DEBRIDEMENT BREAST 10/26/2024 8:30 AM EDT Telephone Visit [facility] Gynecology Oncology, A Department of [address] [facility] [address] [place] [address] Raymodn Sepulveda MD [address] [place] [address], [address] [place] [address] Scheduled Procedures Name Priority Associated [...] Infection Onset Date Last Indicated Resolved Time BUYER Comment:LT CHEST WALL TISSUE(08/12/24) 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
--- OUTSIDE RECORDS SUMMARY | 2024-10-10 15:06 | XMS_ITS | Encounter Summary ---
Author Organization [facility] Address [id number] [address] [place] [address] Care Team Providers Care Jewel Blocker And Sawyer Name Role Phone Amy Collier INSPECTOR AGRICULTURAL COMMODITIES-ADVISORY INTERN Primary Care Provider + Reason for Visit * Reason Comments Med Refill Encounter Details Date Type Department Care Team (Late st Contact Info) Description 04/28/2022 Refill [facility] Internal [facility] - Family Medicine [address] [place] [address] Amy [facility] [address] [place] [address] Social History Tobacco Use Types Packs/Day Years [...] Answer Date Recorded Total Score 0 03/07/2022 [facility] of Occupat ional Health - Occupational Stress [...] 10/12/2024 5:00 PM EDT Hospital Encounter [facility] Division of [facility] - Surgery [address] [place] [address] Jhon Rosado MD [address], [facility] [address] [place] [address] 10/12/2024 5:00 PM EDT - 10/12/2024 6:15 PM EDT Surgery [facility] Division of [facility] - Surgery [address] [place] [address] Jhon Rosado MD [address], [facility] [address] [place] [address] DEBRIDEMENT BREAST 10/26/2024 8:30 AM EDT Telephone Visit [facility] Oncology, Department of [facility] [address] [facility] [address] [place] [address] Raymond Sepulveda MD [address] [facility], [address] [place] [address] Scheduled Procedures Name Priority Associated Diagnoses Date/Ti me DEBRIDEMENT BREAST BREAST WOUND LEFT 10/12/2024 5:00 PM EDT documented as of this encounter Visit Diagnoses Not on filedocumented in this encounter Additional Health Concerns Infection Onset Date Last Indicated Resolved Time PLATER BARREL Comment:LT CHEST WALL TISSUE(08/12/24) 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
--- OUTSIDE RECORDS SUMMARY | 2024-10-10 15:06 | XMS_ITS | Encounter Summary ---
Author Organization [facility] Address [facility] [place] [address] Care Team Providers Care Die Maker Bench Stamping Name Role Phone Nilda Carolina RICHTER Unavailable [phone] Jessica Hope MD Unavailable [phone] Lynda Manuel LABOR RELATIONS SPECIALIST Primary Care Provider [phone] Shereen Smallwood PA-C Unavailable [phone] Radha Martinez RN Unavailable Amy Collier BOAT HOIST OPERATOR HELPER Primary Care Provider [phone] Source Comments In the event this information is protected by the Federal Confidentiality of Alcohol and Drug AbusePatient Records regulations: The Federal rules restrict any use of the information to criminally investigate or prosecute any alcohol or drug abuse patient.[facility] Encounter Details Date Type Department Care Team (Late st Contact Info) Description 05/31/2024 Lab Requisition [facility] Laboratory [address] [place] [address] Jessica Hope MD [address] [place] [address] Person encountering health services to consult [...] Info) Description 11/29/2024 10:20 AM EDT Appointment [facility] [place] [address] [address] With Perfusion 12/01/2024 2:00 PM EDT [facility] [address] [place] [address] Carlos Mccain DO, PhD [address] [facility] [address] [place] [address] Established patient Visit with Dr. Mccain for [...] Case Report Bone Marrow Pathology Report Case: [id number] Authorizing Provider: Jessica Hope MD Collected: 05/31/2024 09:19 PM Ordering Location: [facility] Received: 05/31/2024 09:20 PM [facility] Pathologist: Deidre Avelar MD, PhD Specimen: Slide(s), 13 SLIDES [id number] 06/12/2024 11:59 AM EDT [facility] FINAL DIAGNOSIS A. Outside materials received from [facility], [place], [place] (External ID [id number], 05/12/2024) Bone marrow aspirate smears, touch imprints, core biopsy and clot section: -Cellular bone marrow with maturing trilineage hematopoiesis and increased ring sideroblasts. -Increased storage iron. -See comment. Peripheral blood smear: -Pancytopenia [facility] June 11, 2024 06/12/2024 11:59 AM EDT [facility] at 1159 EDT Diagnosis Comment Thank [...] Linezolid is associated with ring sideroblasts (PMID: [id number]) and may cause bone marrow suppression. Tedezolid is in the same class, although may be associated with less bone marrow suppression (PMID: 63506516). Overall, given the absence of evidence of clonal hematopoeisis, interval resampling following completion of the the antibiotic course may be helpful to further clarify, if cytopenias persist. Please do not hesitate to contact the Hematopathology Consult Service at [phone] for any questions or if additional follow-up information becomes available. 06/12/2024 11:59 AM EDT [facility] Microscopic Description PERIPHERAL BLOOD: CBC (05/12/2024) [...] lobation. Other: Additional stains are performed at [facility] to further clarify the morphologic findings. [...] Performed. 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 06/12/2024 11:59 AM EDT [facility] Clinical History CONSULT REQUESTED 06/12/2024 11:59 AM EDT [facility] Performing Lab Diagnostic interpretation performed at: [facility] Laboratory, [address] [place] [address], [place] [address] CLIA# [id number] Research Dairy Farm Supervisor: Derick Meadows MD 06/12/2024 11:59 AM EDT [facility] Disclaimer Laboratory Developed Test (LDT) Disclaimer: Performance characteristics of immunohistochemica l, immunofluorescent, and chromogenic in-situ hybridization tests have been determined by the performing laboratory within [facility]'s [facility] Pathology and Laboratory Medicine Department ([facility], [facility], [facility], [facility], [facility], [facility], or [facility]) in a manner consistent with CLIA requirements. One or more of these tests may not have been cleared or approved by the FDA. [facility] is regulated under CLIA as qualified to perform high-complexity testing. These tests are used for clinical purposes. These should not be regarded as investigational or for research. Positive and negative controls stain appropriately. 06/12/2024 11:59 AM EDT [facility] Blocks or Slides MICROSCOPE SLIDE / Unknown 05/31/2024 9:19 PM EDT 05/31/2024 9:20 PM EDT us Jessica Hope MD SURGICAL PATHOLOGY Final Resul t [facility] [address] [place] [address], documented in this encounter Visit Diagnoses Diagnosis Person encountering health services to consult on behalf of another person Other person consulting on behalf of another person documented in this encounter Care Teams Die Maker Bench Stamping Relationship Specialty Start Date End Date Lynda Manuel, LABOR RELATIONS SPECIALIST [address] [place] [address] PCP - General Family Medicine 06/14/24 09/26/24 Amy Collier, MONICA [address] [place] [address] PCP - General Family Medicine 09/27/24 Carolina Munguia APRN [address] [facility] [address] [address] 12/04/23 Jessica Hope MD [address] [place] [address] Referring Hematology/Oncology 06/14/24 Shereen Smallwood PA-C [address] [facility] [address] [place] [address] [facility] Referring Orthopedics 06/15/24 [place] [address] [place] [address] Specialty Warranty Manager Hematology/Oncology 07/31/24 documented as of this encounter
--- OUTSIDE RECORDS SUMMARY | 2024-10-10 15:06 | XMS_ITS | Encounter Summary ---
Author Organization [facility] Address [facility] [place] [address] Care Team Providers Care School Psychometrist Name Role Phone Nilda Carolina RICHTER Unavailable [phone] Jessica Hope MD Unavailable [phone] Lynda Manuel TELESCOPE REPAIRER Primary Care Provider [phone] Shereen Smallwood PA-C Unavailable [phone] Radha Martinez RN Unavailable Amy Collier TERMITE RENEWAL INSPECTOR Primary Care Provider [phone] Source Comments In the event this information is protected by the Federal Confidentiality of Alcohol and Drug AbusePatient Records regulations: The Federal rules restrict any use of the information to criminally investigate or prosecute any alcohol or drug abuse patient.[facility] Encounter Details Date Type Department Care Team (Late st Contact Info) Description 07/22/2024 Lab Requisition [facility] [place] [address] [place] [address] [place] [address] Person encountering health services to [...] is lower risk 7 07/21/2024 Data from: [email or web address] Last address used for calculation [address] [...] Info) Description 11/29/2024 10:20 AM EDT Appointment [facility] Radiology MRI [address] [place] [address] With Perfusion 12/01/2024 2:00 PM EDT [facility] [address] [place] [address] Carlos Mccain DO, PhD [address] [facility] [address] [place] [address] Established patient Visit with Dr. Mccain for [...] EDT) Case Report Surgical Pathology Report Case: [id number] Authorizing Provider: Aurelia Oneill MD Collected: 07/22/2024 03:52 PM Ordering Location: [facility] Main Received: 07/22/2024 03:51 PM [facility] Laboratory Pathologist: Michael López MD Specimen: Slide(s), 11 SLIDES [id number] 08/09/2024 9:01 AM EDT [facility] FINAL DIAGNOSIS Liver mass, biopsy: - Adenocarcinoma, compatible with breast origin. 08/09/2024 9:01 AM EDT [facility] at 1337 EDT Diagnosis Comment Tumor cells are positive for CK7 and GATA3, with weak expression for ER. Negative stains include CK19, WV, and CDX2. 08/09/2024 9:01 AM EDT [facility] Performing Lab Diagnostic interpretation performed at: [facility], [address] [place] [address], [place] [address] CLIA# [id number] Instructional Support Services Director: Derick Meadows MD 08/09/2024 9:01 AM EDT [facility] Addendum Breast biomarkers (ER, PgR, and HER2) performed at the outside institution are available for review at the [facility] and demonstrate the tumor cells to be positive for ER (30% nuclear staining of tumor cells with moderate staining intensity), negative for WV (<1% nuclear staining of tumor cells), and negative for HER2 (score of 1+). [facility] 08/09/24 08/09/2024 9:01 AM EDT [facility] Addendum electronically signed by Kev Kang MD on 08/09/2024 at 0901 EDT Disclaimer Laboratory Developed Test (LDT) Disclaimer: Performance characteristics of immunohistochemica l, immunofluorescent, and chromogenic in-situ hybridization tests have been determined by the performing laboratory within [facility]'s [facility] Pathology and Laboratory Medicine Department ([facility], [facility], [facility], [facility], [facility], [facility], or [facility]) in a manner consistent with CLIA requirements. One or more of these tests may not have been cleared or approved by the FDA. [facility] is regulated under CLIA as qualified to perform high-complexity testing. These tests are used for clinical purposes. These should not be regarded as investigational or for research. Positive and negative controls stain appropriately. 08/09/2024 9:01 AM EDT [facility] Blocks or Slides MICROSCOPE SLIDE / Unknown 07/22/2024 3:52 PM EDT 07/22/2024 3:51 PM EDT us Aurelia Oneill MD SURGICAL PATHOLOGY Edited Result - Final [facility] [address] [facility] [address] [place] [address], documented in this encounter Visit Diagnoses Diagnosis Person encountering health services to consult on behalf of another person Other person consulting on behalf of another person documented in this encounter Care Teams School Psychometrist Relationship Specialty Start Date End Date Lynda Manuel CNP [address] [place] [address] PCP - General Family Medicine 06/14/24 09/26/24 Amy Collier, MONICA [address] [place] [address] PCP - General Family Medicine 09/27/24 Carolina Munguia APRN [address] [facility] [address] [address] 12/04/23 Jessica Hope MD [address] [place] [address] Referring Hematology/Oncology 06/14/24 Shereen Smallwood PA-C [address] [facility] [address] [place] [address] [facility] Referring Orthopedics 06/15/24 [place] [address] [place] [address] Specialty Delicatessen Store Manager Hematology/Oncology 07/31/24 documented as of this encounter
--- OUTSIDE RECORDS SUMMARY | 2024-10-10 15:06 | XMS_ITS | Encounter Summary ---
Author Organization [facility] Address [facility]-[id number] [address] [place] [address] Care Team Providers Care Assistant Accounting Manager Name Role Phone Amy Collier ACCOUNTS PAYABLES CLERK-INTERNAL CORROSION SPECIALIST Primary Care Provider + Encounter Details Date Type Department Care Team (Late st Contact Info) Description 03/07/2022 Orders Only [facility] Internal Medicine - Family Medicine [address] [place] [phone] Amy Collier APRN-INTERNAL CORROSION SPECIALIST [address] [place] [address] Social History Tobacco Use Types Packs/Day Years [...] Answer Date Recorded Total Score 0 03/07/2022 [facility] [place] of Occupat ional Health - Occupational Stress [...] Description 10/12/2024 5:00 PM EDT Hospital Encounter [facility] - Surgery [address] [place] [address] Jhon Rosado MD [address], [facility] [address] [place] [address] 10/12/2024 5:00 PM EDT - 10/12/2024 6:15 PM EDT Surgery [facility] - Surgery [address] [place] [address] Jhon Rosado MD [address], [facility] [address] [place] [phone] DEBRIDEMENT BREAST 10/26/2024 8:30 AM EDT Telephone Visit [facility] Gynecology Oncology, A Department of [place] [address] [facility] [address] [place] [address] [place] [address] [place] [address], [address] [place], [place] [phone] Scheduled Procedures Name Priority Associated Diagnoses Date/Ti me DEBRIDEMENT BREAST BREAST WOUND LEFT 10/12/2024 5:00 PM EDT documented as of this encounter Procedures Procedure Name Priority Date/Time Associated Diagnosis Comments HOME NEBULIZER Routine 03/07/2022 documented in this encounter Results * Home Nebulizer (03/07/2022) Amy Collier APRN-ESPERANZA DME ORDERABLES Final Re sult MANUALLY TRANSCRIBED RESULTS documented in this encounter Visit Diagnoses Not on filedocumented in this encounter Additional Health Concerns Infection Onset Date Last Indicated Resolved Time Influenza 03/07/2022 03/07/2022 03/14/2022 11:1 2 PM EST VEHICLE TECHNICIAN Comment:LT CHEST WALL TISSUE(08/12/24) 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
--- OUTSIDE RECORDS SUMMARY | 2024-10-10 15:06 | XMS_ITS | Encounter Summary ---
Author Organization [facility] Address [facility]-[id number] [address] [place] [address] Care Team Providers Care Log Peeler Name Role Phone Amy Collier PAPER DELIVERER-MOLD BLOWER Primary Care Provider + Encounter Details Date Type Department Care Team (Late st Contact Info) Description 06/03/2024 Orders Only [facility] Internal Medicine - Family Medicine [address] [place] [phone] Ref Prov, [place] [address] Social History Tobacco Use Types Packs/Day Years [...] any clubs o r organizations such as adventism groups, unions, fraternal or athletic groups, or [...] Recorded Do you need help finding a [facility] and/or a training [...] Description 10/12/2024 5:00 PM EDT Hospital Encounter [facility] - Surgery [address] [place] [address] Jhon Rosado MD [address], [facility] [address] [place] [address] 10/12/2024 5:00 PM EDT - 10/12/2024 6:15 PM EDT Surgery [facility] - Surgery [address] [place] [address] Jhon Rosado MD [address], [facility] [address] [place] [address] DEBRIDEMENT BREAST 10/26/2024 8:30 AM EDT Telephone Visit [facility] Gynecology Oncology, A Department of [place] [address] [facility] [address] [place] [address] Raymond Sepulveda MD [address] [facility], [address] [place] [address] Scheduled Procedures Name Priority Associated Diagnoses Date/Ti [...] OR DERABLES Final Result Performing Organization Address [facility] de Phone Number MANUALLY TRANSCRIBED RESULTS * Blood Culture (05/22/2024 11:18 AM EDT) Blood us Not In System Ref Prov MICROBIOLOGY - GENERAL OR DERABLES Final Result Performing Organization Address [facility] de Phone Number MANUALLY TRANSCRIBED RESULTS * Blood Culture (05/22/2024 11:17 AM EDT) Blood us Not In System Ref Prov MICROBIOLOGY - GENERAL OR DERABLES Final Result Performing Organization Address [facility] de Phone Number MANUALLY TRANSCRIBED RESULTS * Blood Culture (05/22/2024 11:15 AM EDT) Blood us Not In System Ref Prov MICROBIOLOGY - GENERAL OR DERABLES Final Result Performing Organization Address [facility] de Phone Number MANUALLY TRANSCRIBED RESULTS documented in this encounter Visit Diagnoses Not on filedocumented in this encounter Additional Health Concerns Infection Onset Date Last Indicated Resolved Time C T TECH Comment:LT CHEST WALL TISSUE(08/12/24) 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
--- OUTSIDE RECORDS SUMMARY | 2024-10-10 15:06 | XMS_ITS | Encounter Summary ---
Author Organization [employer] Address [id number] [address] [place] [address] Care Team Providers Care Technical Services Assistant Name Role Phone Amy Collier WORKFORCE DEVELOPMENT PROGRAM DIRECTOR-JEWEL SORTER Primary Care Provider + Reason for Referral * Diagnostic Imaging (Routine) - Pending Review Specialty Diagnoses / Procedures Referred By Contac t Referred To Contact Radiology Diagnoses Pain Procedures CT abdomen and pelvis with contrast [facility] [address] [place] [phone] Phone: tel: fax: Referral ID Status Reason Start Date Expiration Date V isits Requested Visits Authorized [id number] Pending Review 06/13/2024 06/13/2025 1 1 * Diagnostic Imaging (Routine) - Pending Review Specialty Diagnoses / Procedures Referred By Contac t Referred To Contact Radiology Diagnoses Pain Procedures CT chest with contrast [facility] [address] [place] [phone] Phone: tel: fax: Referral ID Status Reason Start Date Expiration Date V isits Requested Visits Authorized [id number] Pending Review 06/13/2024 06/13/2025 1 1 Encounter Details Date Type Department Care Team (Late st Contact Info) Description 06/13/2024 Orders Only [facility] [address] [place] [phone] Transcribe, Orders Support User Pain (Primary Dx) Social History Tobacco Use Types Packs/Day Years Used Date Smoking Tobacco: Never Passive Smoke Exposure: Past Smokeless Tobacco: Never Alcohol Use Standard Drinks/Week Comments Yes 0 (1 standard drink = 0.6 oz pur e alcohol) Socially [facility] Utilities Answer Date Recorded In the past [...] week 02/27/2022 How often do you attend [facility] or anabaptist services? More than 4 [...] Answer Date Recorded Total Score 2 03/30/2024 [facility] of Occupat ional Health - [...] help finding a the orthopedic specialty [facility] and/or a training program? No 02/27/2022 [...] Description 10/12/2024 5:00 PM EDT Hospital Encounter [facility] - Surgery [address] [place] [address] Jhon Rosado MD [address], [address] [place] [address] 10/12/2024 5:00 PM EDT - 10/12/2024 6:15 PM EDT Surgery [facility] Division [facility] - Surgery [address] [place] [address] Jhon Rosado MD [address] [facility], [address] [place] [phone] DEBRIDEMENT BREAST 10/26/2024 8:30 AM EDT Telephone Visit [facility], Department of [facility] [address] [facility] [address] [facility] [place] [address] Raymond Speulveda MD [address] [facility], [address] [place] [address] Scheduled Procedures Name Priority Associated Diagnoses Date/Ti me DEBRIDEMENT BREAST BREAST WOUND LEFT 10/12/2024 5:00 PM EDT documented as of this encounter Goals Goal Patient Goal Type Associated Problems Recent Progress Patient-Stated? 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
--- OUTSIDE RECORDS SUMMARY | 2024-10-10 15:06 | XMS_ITS | Encounter Summary ---
Author Organization [facility] Address [id number] [address] [place] [address] Care Team Providers Care Bulk Filler Name Role Phone Amy Collier SERVICE CREW LEADER-BUSINESS CONSULT Primary Care Provider + Encounter Details Date Type Department Care Team (Late Contact Info) Description 11/27/2021 Orders Only [facility] Internal Medicine - Family Medicine [address] [place] [address] Nat Javed CMA Social History [...] Description 10/12/2024 5:00 PM EDT Hospital Encounter [facility] - Surgery [address] [place] [address] Jhon Rosado MD [address], [address] [place] [phone] 10/12/2024 5:00 PM EDT - 10/12/2024 6:15 PM EDT Surgery [facility] - Surgery [address] [address] Jhon Rosado MD [address] [facility] , [address] [place] [address] DEBRIDEMENT BREAST 10/26/2024 8:30 AM EDT Telephone Visit [facility] Gy[facility] Oncology, Department of [facility] [address] [facility] [place] [address] [place] [address] [place] [address], [address] [place] [address] Scheduled Procedures Name Priority Associated Diagnoses Date/Ti me DEBRIDEMENT BREAST BREAST WOUND LEFT 10/12/2024 5:00 PM EDT documented as of this encounter Visit Diagnoses Not on filedocumented in this encounter Additional Health Concerns Infection Onset Date Last Indicated Resolved Time Influenza 03/07/2022 03/07/2022 03/14/2022 11:1 2 PM EST SENIOR WATER RESOURCES ENGINEER Comment:LT CHEST WALL TISSUE(08/12/24) 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
--- OUTSIDE RECORDS SUMMARY | 2024-10-10 15:06 | XMS_ITS | Encounter Summary ---
Author Organization [employer] Address [facility]-[id number] [address] [place] [address] Care Team Providers Care Podiatrist Name Role Phone Amy Collier DISTRICT SALES MANAGER-SOFTWARE PACKAGING ENGINEER Primary Care Provider + Reason for Referral * Specialty Diagnoses / Procedures Referred By Jose olmedo Referred To Contact Vascular Surgery TIAGO CARSON [address] [place] [address] Referral ID Status Reason Start Date Expiration Date Visits Re quested Visits Authorized Encounter Details Date Type Department Care Team (Late st Contact Info) Description 09/21/2023 Orders Only [facility] Internal [facility] - Family Medicine [address] [place] [address] Ref Prov, [place] [address] Social History Tobacco Use Types Packs/Day Years [...] 03/07/2022 [facility] of Occupat ional [facility] - Occupational Stress Questionnaire Answer Date [...] Description 10/12/2024 5:00 PM EDT Hospital Encounter [facility] - Surgery [address] [place] [address] Jhon Rosado MD [address], [facility] [address] [place] [address] 10/12/2024 5:00 PM EDT - 10/12/2024 6:15 PM EDT Surgery [facility] - Surgery [address] [place] [phone] Jhon Rosado MD [address], [facility] [address] [place] [address] DEBRIDEMENT BREAST 10/26/2024 8:30 AM EDT Telephone Visit [facility] Gynecology Oncology, A Department of [place] [address] [facility] [address] [place] [address] [place] [address] [place] [address], [address] [place] [address] Scheduled Procedures Name Priority Associated Diagnoses Date/Ti [...] Onset Date Last Indicated Resolved Time SUPERVISOR COOPERAGE SHOP Comment:LT CHEST WALL TISSUE(08/12/24) 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
--- OUTSIDE RECORDS SUMMARY | 2024-10-10 15:07 | XMS_ITS | Encounter Summary ---
Author Organization [facility] Address [facility]-[id number] [address] [place] [address] Care Team Providers Care Covering And Lining Supervisor Name Role Phone Amy Collier WEBSITE PROJECT MANAGER-MINE INSPECTOR FEDERAL Primary Care Provider + Encounter Details Date Type Department Care Team (Late st Contact Info) Description 08/31/2023 Orders Only [facility] Internal Medicine - Family Medicine [address] [place] [phone] Kodi Monteiro CMA Malignant neoplasm of right female breast, unspecified estrogen receptor status, unspecified site of breast ([facility]) Social History Tobacco Use Types Packs/Day Years [...] Date Recorded Total Score 0 03/07/2022 [facility] of Occupat ional Health - Occupational [...] Hospital Encounter [facility] Surgery [address] [place] [address] Jhon Rosado MD [address] [facility], [facility] [address] [place] [phone] 10/12/2024 5:00 PM EDT - 10/12/2024 6:15 PM EDT Surgery [facility] Division of [facility] Surgery [address] [place] [address] Jhon Rosado MD [address], [facility] [address] [place] [address] DEBRIDEMENT BREAST 10/26/2024 8:30 AM EDT Telephone Visit [facility] Gynecology Oncology, A Department of [address] [place] [address] Raymond Sepulveda MD [address] [place] [address], [address] [place], [place] [phone] Scheduled Procedures Name Priority Associated Diagnoses Date/Ti me DEBRIDEMENT BREAST BREAST WOUND LEFT 10/12/2024 5:00 PM EDT documented as of this encounter Visit Diagnoses Diagnosis Malignant neoplasm of right female breast, unspecified estrogen receptor status, unspecified site of breast ([facility]) documented in this encounter Additional Health Concerns Infection Onset Date Last Indicated Resolved Time FRUIT LOADER Comment:LT CHEST WALL TISSUE(08/12/24) 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
--- OUTSIDE RECORDS SUMMARY | 2024-10-10 15:07 | XMS_ITS | Encounter Summary ---
Author Organization [place] Sys tem Address [id number] [address] [place] [address] Care Team Providers Care Egg Buyer Name Role Phone Amy Collier POWER REACTOR OPERATOR-CABLE PLACER Primary Care Provider + Encounter Details Date Type Department Care Team (Late st Contact Info) Description 10/27/2023 Orders Only [facility] Surgical Oncology [address] [facility] [address] [place] [address] Ref Prov, [place] [address] Social History Tobacco Use Types Packs/Day Years Used Date Smoking Tobacco: Never Smokeless Tobacco: Never Alcohol Use Standard Drinks/Week Comments Yes 0 (1 standard drink = 0.6 oz pur e alcohol) Socially [facility] Utilities Answer Date Recorded In the past 12 months has [employer] electric, gas, oil, or water company threatened [...] Date Recorded Total Score 0 03/07/2022 [facility] of Occupat ional Health - Occupational Stress [...] 5:00 PM EDT Hospital Encounter [facility] Division of [facility] - Surgery [address] [place] [address] Jhon Rosado MD [address] [facility], [facility] [address] [place] [address] 10/12/2024 5:00 PM EDT - 10/12/2024 6:15 PM EDT Surgery [facility] Division of [facility] - Surgery [address] [place] [address] Jhon Rosado MD [address], [facility] [address] [place] [address] DEBRIDEMENT BREAST 10/26/2024 8:30 AM EDT Telephone Visit [facility] Gynecology Oncology, A Department of [place] [address] [address] [facility] [address] [place] [address] Raymond Sepulveda MD [address] [facility], [address] [place] [address] Scheduled Procedures Name Priority Associated Diagnoses Date/Ti me DEBRIDEMENT BREAST BREAST WOUND LEFT 10/12/2024 5:00 PM EDT documented as of this encounter Procedures Procedure Name Priority Date/Time Associated Diagnosis Comments MULTIPLE LABS Routine 10/27/2023 10:43 AM EDT documented in this encounter Results * Multiple labs (10/27/2023 10:43 AM EDT) us Not In System Ref Prov [facility] Final Res ult MANUALLY TRANSCRIBED RESULTS documented in this encounter Visit Diagnoses Not on filedocumented in this encounter Additional Health Concerns Infection Onset Date Last Indicated Resolved Time DATA ANALYTICS DEVELOPER Comment:LT CHEST WALL TISSUE(08/12/24) 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
--- OUTSIDE RECORDS SUMMARY | 2024-10-10 15:07 | XMS_ITS | Encounter Summary ---
Author Organization [facility] Sys tem Address [facility][id number] [address] [place] [address] Care Team Providers Care Scoop Driver Name Role Phone Amy Collier HOTEL LOBBY CONCIERGE-DIRECTOR OF LOSS PREVENTION Primary Care Provider + Encounter Details Date Type Department Care Team (Late st Contact Info) Description 04/03/2023 Orders Only [facility] Internal Medicine - Family Medicine [address] [place] [address] Amy Collier APRN-DIRECTOR OF LOSS PREVENTION [address] [place] [address] Social History Tobacco Use Types Packs/Day Years [...] Answer Date Recorded Total Score 0 03/07/2022 [facility] [place] of Occupat ional Health - Occupational Stress [...] Description 10/12/2024 5:00 PM EDT Hospital Encounter [facility] Surgery [address] [place] [address] Jhon Rosado MD [facility], [facility] [address] [place] [address] 10/12/2024 5:00 PM EDT - 10/12/2024 6:15 PM EDT Surgery [facility] Surgery [address] [place] [address] Jhon Rosado MD [address], [facility] [address] [place] [address] DEBRIDEMENT BREAST 10/26/2024 8:30 AM EDT Telephone Visit [facility] Gynecology Oncology, Department of [place] [address] [facility] [address] [place] [address] Raymond Sepulveda MD [address] [place] [address], [address] [place], [place] [phone] Scheduled Procedures Name Priority Associated Diagnoses Date/Ti me DEBRIDEMENT BREAST BREAST WOUND LEFT 10/12/2024 5:00 PM EDT documented as of this encounter Procedures Procedure Name Priority Date/Time Associated Diagnosis Comments SURGICAL PATHOLOGY Routine 04/02/2023 10:49 AM EST documented in this encounter Results * Surgical Pathology (04/02/2023 10:49 AM EST) Amy Collier APRN-ESPERANZA PATHOLOGY/CYTOLOGY ORDER CATIE Final Result MANUALLY TRANSCRIBED RESULTS documented in this encounter Visit Diagnoses Not on filedocumented in this encounter Additional Health Concerns Infection Onset Date Last Indicated Resolved Time NEWSPAPER PHOTOJOURNALIST Comment:LT CHEST WALL TISSUE(08/12/24) 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
--- OUTSIDE RECORDS SUMMARY | 2024-10-10 15:07 | XMS_ITS | Encounter Summary ---
Author Organization [facility] Address [facility] [place] [address] Care Team Providers Care Ex Assistant/Program Director Name Role Phone Caorlina Munguia APRN Unavailable [phone] Jessica Hope MD Unavailable [phone] Lynda Manuel SUPERINTENDENT TERMINAL Primary Care Provider [phone] Shereen Smallwood PA-C Unavailable [phone] Radha Martinez RN Unavailable Amy Collier NP Primary Care Provider [phone] Source Comments In the event this information is protected by the Federal Confidentiality of Alcohol and Drug AbusePatient Records regulations: The Federal rules restrict any use of the information to criminally investigate or prosecute any alcohol or drug abuse patient.[facility] Reason for Referral * MRI/CT (Routine) - Pending Review Specialty Diagnoses / Procedures Referred By Jose olmedo Referred To Contact [facility] Diagnoses Secondary malignant neoplasm of brain (HCC) Procedures MRI BRAIN WO/W IVCON MRI BRAIN BRAIN STEM W/O W/CONTRAST MATERIAL Carlos Mccain DO, PhD [address] [facility] [address] [place] [address] Phone: tel: fax: [place] [address] Referral ID Status Reason Start Date Expiration Date Visits Requested Visits Authorized [id number] Pending Review Auto-Generat ed Referral 09/26/2024 10/26/2025 1 1 * MRI/CT (Routine) - Closed Specialty Diagnoses / Procedures Referred By Jose olmedo Referred To Contact [facility] Diagnoses Secondary malignant neoplasm of brain (HCC) Procedures MRI BRAIN LOCALIZATION W IVCON MAGNETIC RESONANCE ELASTOGRAPHY Carlos Mccain DO, PhD [address] [place] [address] Phone: tel: fax: [place] [address] Referral ID Status Reason Start Date Expiration Date V isits Requested Visits Authorized [id number] Closed Auto-Generat ed Referral Patient Cleared - Admin/Chairm an/Director advise to proceed or did not respond 10/07/2024 10/07/2024 1 1 * MRI/CT (Routine) - Closed Specialty Diagnoses / Procedures Referred By Jose olmedo Referred To Contact CT IMAGING Diagnoses Secondary malignant neoplasm of brain (HCC) Procedures CT BRAIN STEREOLOCAL WO IVCON CT GUIDANCE STEREOTACTIC LOCALIZATION Carlos Mccain DO, PhD [address] [place] [address] Phone: tel: fax: [place] [address] Referral ID Status Reason Start Date Expiration Date V isits Requested Visits Authorized [id number] Closed Auto-Generate d Referral 10/07/2024 03/01/2025 1 1 Encounter Details Date Type Department Care Team (Late st Contact Info) Description 09/26/2024 Cure Form [facility] [address] [place] [id number] Carlos Mccain DO, PhD [address] [place] [address] Secondary malignant neoplasm of brain (HCC) (Primary Dx) Social History Tobacco Use Types Packs/Day Years Used Date Smoking Tobacco: Never Passive Smoke Exposure: Never Smokeless Tobacco: Never Alcohol Use Standard Drinks/Week Comments Not Currently 0 (1 standard drink = 0.6 oz pur e alcohol) Occasional wine [facility] Utilities Answer Date Recorded In the past 12 months has th e [employer], gas, oil, or water [employer] threatened to shut off services in your [...] any time in the past 12 m [facility], were you homeless or living in a longterm (including now)? No 08/29/2024 Area Deprivation Index Answer Date [place] rded National Score (1-100), lower number is lower ri sk 82 07/21/2024 State Score (1-10), lower number is lower risk 7 07/21/2024 Data from: https://www.neighborhoodatlas.medicine.[facility].edu/. Last address used for calculation [address] 07/21/2024 Comments Unknown Sex and Gender Information Value Date Recorded Sex Assigned at Not on file Legal Sex Female 3:51 PM EDT Gender Identity Not on file Sexual Orientation Not on file documented as of this encounter Plan of Treatment Upcoming Encounters Date Type Department Care Team (Latest Contact Info) Description 11/29/2024 10:20 AM EDT Appointment [facility] [place] [address] [place] [address] With Perfusion 12/01/2024 2:00 PM EDT [facility] [address] [place] [address] Carlos Mccain DO, PhD [address] [facility] [address] [place] [address] Established patient Visit with Dr. Mccain for MRI review and follow up Scheduled Orders Name Type Priority Associated Diagnoses Orde r Schedule MRI BRAIN WO/W IVCON Radiology Routine Secondary malignant neoplasm of brain (HCC) 1 Occurrences starting 09/26/2024 until 10/26/2025 documented as of this encounter Results * CT BRAIN STEREOLOCAL WO IVCON (10/07/2024 8:47 AM EDT) Anatomical Region Laterality Modality Head Computed Tomogra phy 10/07/2024 8:47 AM EDT Impressions 10/07/2024 8:58 AM EDT IMPRESSION: Examination performed for preprocedural planning purposes. Patient Service Representative: CARLOS Transcribe Date/Time: Oct 07 2024 8:54A [...] this is for gk planning purposes. - [id number] - - - - TECHNIQUE: CT head [...] or retention cysts in both maxillary antra. Systems Software Designer (topogram) images: No additional findings. Procedure Note Provider, [facility] - 10/07/2024 * * *Final Report* * [...] this is for gk planning purposes. - [id number] - - - - TECHNIQUE: CT head [...] or retention cysts in both maxillary antra. Systems Software Designer (topogram) images: No additional findings. IMPRESSION IMPRESSION: Examination performed for preprocedural planning purposes. Patient Service Representative: CARLOS Transcribe Date/Time: Oct 07 2024 8:54A Dictated by : MACIE PIZANO DO This examination was interpreted and the report reviewed and electronically signed by: MACIE PIZANO DO on Oct 07 2024 8:56AM EST us Carlos Mccain DO, PhD CT-PAMA Final Resul t * MRI BRAIN LOCALIZATION W IVCON (10/07/2024 8:38 AM EDT) Anatomical Region Laterality Modality Head Magnetic Resonan ce 10/07/2024 8:38 AM EDT Impressions 10/07/2024 9:03 AM EDT IMPRESSION: Examination performed for preprocedural planning purposes. Stable small lesion in the left middle frontal gyrus. Slight decrease in size of midline cerebellar vermis lesion and left inferior frontal lesion from 09/07/2024. Patient Service Representative: CARLOS Transcribe Date/Time: Oct 07 2024 8:56A [...] this is for gk planning purposes - [id number] - - - - TECHNIQUE: MRI brain [...] Basal cisterns are clear. Procedure Note Provider, [facility] - 10/07/2024 * * *Final Report* * [...] this is for gk planning purposes - [id number] - - - - TECHNIQUE: MRI brain [...] and left inferior frontal lesion from 09/07/2024. 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 documented in this encounter Care Teams Ex Assistant/Program Director Relationship Specialty Start Date End Date Lynda Manuel, SUPERINTENDENT TERMINAL [address] [place], [place] [phone] PCP - General Family Medicine 06/14/24 09/26/24 Amy Collier, MONICA [address] [place] [address] PCP - General Family Medicine 09/27/24 Carolina Munguia APRN [address] [facility] [address] [place] [address] 12/04/23 Jessica Hope MD [address] [place] [address] Referring Hematology/Oncology 06/14/24 Shereen Smallwood PA-C [address] [facility] [address] [place] [address] [facility] Referring Orthopedics 06/15/24 [place] [address] [place], [place] [phone] Specialty Portfolio Consultant Hematology/Oncology 07/31/24 documented as of this encounter
--- OUTSIDE RECORDS SUMMARY | 2024-10-10 15:07 | XMS_ITS | Encounter Summary ---
Author Organization [facility] Address [facility] [id number] [address] [place] [address] Care Team Providers Care Gate Person Name Role Phone Amy Collier PRINCIPAL NETWORK ARCHITECT-BANKING TEACHER Primary Care Provider + Encounter Details Date Type Department Care Team (Late st Contact Info) Description 03/23/2023 Orders Only [facility] Internal Medicine - Family Medicine [address] [place] [address] Nat Javed CMA Abnormal mammogram [...] Date Recorded Total Score 0 03/07/2022 [facility] of Occupat ional Health [...] Recorded Do you need help finding a [facility] centerBandgap Engineering career center and/or a training program? No [...] Description 10/12/2024 5:00 PM EDT Hospital Encounter [facility] - Surgery [address] [place] [address] Jhon Rosado MD [address], [address] [place] [address] 10/12/2024 5:00 PM EDT - 10/12/2024 6:15 PM EDT Surgery [facility] - Surgery [address] [place] [address] Jhon Rosado MD [address], [address] [place] [address] DEBRIDEMENT BREAST 10/26/2024 8:30 AM EDT Telephone Visit [facility] Gynecology Oncology, A Department of [place] [address] [address] [facility] [address] [place] [address] Raymond Sepulveda MD [address] [place] [address], [address] [place] [address] Scheduled Procedures Name Priority Associated [...] Breast Right Ultrasound 03/20/[address] 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
--- OUTSIDE RECORDS SUMMARY | 2024-10-10 15:07 | XMS_ITS | Encounter Summary ---
Author Organization [facility] Address [address] [place] [address] Care Team Providers Care Police Crime Scene Technician Name Role Phone Randy Lu MD Primary Care Provider Encounter Details Date Type Department Care Team (Late Contact Info) Description 09/09/2023 Abstract [facility]anne [facility] SOU[facility] [address] [place] [address] Evan Thompson DO [facility] [place] [address] Social History Tobacco Use Types Packs/Day Years [...] EDT Office Visit [facility] Suzanne DE SOUZA [facility] [place] [address] Evan Thompson DO [address] [place] [id number] documented as of this encounter Visit Diagnoses Not on filedocumented in this encounter Care Teams Police Crime Scene Technician Relationship Specialty Start Date End Date Randy Lu MD PCP - General Family Medicine 04/02/23 documented as of this encounter
--- OUTSIDE RECORDS SUMMARY | 2024-10-10 15:07 | XMS_ITS | Encounter Summary ---
Author Organization [facility] Sys tem Address [id number] [address] [place] [address] Care Team Providers Care Spindle Repairer Name Role Phone Amy Collier TRANSPORTATION DIRECTOR-SYNTHETIC CLOTH BINDING CUTTER Primary Care Provider + Encounter Details Date Type Department Care Team (Late st Contact Info) Description 05/13/2023 Orders Only [facility] Internal Medicine - Family Medicine [address] [place] [address] External, Scanning Provider Social History [...] How often do you attend chur or worship services? More than 4 times [...] 5:00 PM EDT Hospital Encounter [facility] Surgery [address] [place] [address] Jhon Rosado MD [address], [facility] [address] [place] [address] 10/12/2024 5:00 PM EDT - 10/12/2024 6:15 PM EDT Surgery [facility] - Surgery [address] [address] Jhon Rosado MD [address], [facility] [address] [place] [address] DEBRIDEMENT BREAST 10/26/2024 8:30 AM EDT Telephone Visit [facility] Gynecology Oncology, Department of [address] [facility] [address] [place] [address] Raymond Sepulveda MD [address] [place] [address], [address] [place] [address] Scheduled Procedures Name Priority [...] Infection Onset Date Last Indicated Resolved Time LEAD LEVEL DESIGNER Comment:LT CHEST WALL TISSUE(08/12/24) 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
--- OUTSIDE RECORDS SUMMARY | 2024-10-10 15:07 | XMS_ITS | Encounter Summary ---
Author Organization [facility] Sys tem Address [id number] [address] [place] [address] Care Team Providers Care Acoustic Engineer Name Role Phone Amy Clolier CENTRIFUGAL OPERATOR-REPLANTING MACHINE OPERATOR Primary Care Provider + Encounter Details Date Type Department Care Team (Late st Contact Info) Description 04/07/2023 Orders Only [facility] - Family Medicine [address] [place] [address] External, Scanning Provider Social History [...] How often do you attend chur or latter day services? More than 4 [...] Answer Date Recorded Total Score 0 03/07/2022 [facility] of Occupat ional Health - Occupational [...] Ibrahim - 04/07/2023 8:52 AM EST Sent mycharshara msg * Susan Horton CMA - 04/07/2023 8:52 AM EST Patient has breast cancer and a wellness is not her concern right now. documented in this encounter Plan of Treatment Upcoming Encounters Date Type Department Care Team (Late st Contact Info) Description 10/12/2024 5:00 PM EDT Hospital Encounter [facility] Division [facility] - Surgery [address] [place] [address] Jhon Rosado MD [address], [address] [place] [address] 10/12/2024 5:00 PM EDT - 10/12/2024 6:15 PM EDT Surgery [facility] [address] [place] [address] Jhon Rosado MD [address], [address] [place] [address] DEBRIDEMENT BREAST 10/26/2024 8:30 AM EDT Telephone Visit [facility] Gynecology Oncology, A Department of [facility] [address] [place] [address] Raymond Sepulveda MD 5[address] [facility], [address] [place] [address] Scheduled Procedures Name Priority Associated Diagnoses Date/Ti me DEBRIDEMENT BREAST BREAST WOUND LEFT 10/12/2024 5:00 PM EDT documented as of this encounter Visit Diagnoses Not on filedocumented in this encounter Additional Health Concerns Infection Onset Date Last Indicated Resolved Time NUISANCE WILDLIFE TRAPPER Comment:LT CHEST WALL TISSUE(08/12/24) 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
--- OUTSIDE RECORDS SUMMARY | 2024-10-10 15:07 | XMS_ITS | Encounter Summary ---
Author Organization [facility] Address [address] [place] [address] Care Team Providers Care Revenue Investigator Name Role Phone Randy Lu MD Primary Care Provider Encounter Details Date Type Department Care Team (Late Contact Info) Description 02/10/2024 Abstract [facility] Suzanne DE SOUZA [facility] [place] [address] Evan Thompson DO [facility] [place]acios, [id number] Social History Tobacco Use Types Packs/Day Years [...] [facility] Suzanne [address] [place] [address] Evan Thompson DO [address] [place], [id number] documented as of this encounter Visit Diagnoses Not on filedocumented in this encounter Care Teams Revenue Investigator Relationship Specialty Start Date End Date Randy Lu MD PCP - General Family Medicine 04/02/23 documented as of this encounter
--- OUTSIDE RECORDS SUMMARY | 2024-10-10 15:07 | XMS_ITS | Encounter Summary ---
Author Organization [facility] Address [facility] [place] [address] Care Team Providers Care Tubular Splitting Machine Tender Name Role Phone Carolina Munguia APRN Unavailable [phone] Jessica Hope MD Unavailable [phone] Shereen Smallwood PA-C Unavailable [phone] Radha Martinez RN Unavailable Amy Collier NP Primary Care Provider [phone] Source Comments In the event this information is protected by the Federal Confidentiality of Alcohol and Drug AbusePatient Records regulations: The Federal rules restrict any use of the information to criminally investigate or prosecute any alcohol or drug abuse patient.[facility] Reason for Visit * Reason Comments Patient Question Encounter Details Date Type Department Care Team (Late st Contact Info) Description 10/04/2024 [facility]phone [facility] [address] [place] [id number] Carlos Mccain DO, PhD [address] [facility] [address] [place] [address] Patient Question Social History Tobacco Use Types Packs/Day Years Used Date Smoking Tobacco: Never Passive Smoke Exposure: Never Smokeless Tobacco: Never Alcohol Use Standard Drinks/Week Comments Not Currently 0 (1 standard drink = 0.6 oz pur e alcohol) Occasional wine [facility] Utilities Answer Date Recorded [...] any time in the past 12 m [facility], were you homeless or living in a long term (including now)? No 08/29/2024 Area Deprivation Index Answer Date Milton rded National Score (1-100), lower number is lower ri sk 82 07/21/2024 State Score (1-10), lower number is lower risk 7 07/21/2024 Data from: https://www.neighborhoodatlas.medicine.[facility].edu/. Last address used for calculation [address] 07/21/2024 Comments Unknown Sex and Gender Information Value Date Recorded Sex Assigned at Not on file Legal Sex Female 3:51 PM EDT Gender Identity Not on file Sexual Orientation Not on file documented as of this encounter Miscellaneous Notes * Telephone Encounter - Candida Thompson - 10/04/2024 9:20 AM EDT General Call Caller : Yasmin Contact Reason for Call : Pt wants to know if she stop taking chemo meds a couple days before her procedure? Patient requesting return call ? Yes documented in this encounter Plan of Treatment Upcoming Encounters Date Type Department Care Team (Latest Contact Info) Description 11/29/2024 10:20 AM EDT Appointment [facility] [place]iology MRI [address] [place] [address] With Perfusion 12/01/2024 2:00 PM EDT [facility] Tumor Center [address] [place] [address] Carlos Mccain DO, PhD [address] [facility] [address] [place], [place] [phone] Established patient Visit with Dr. Mccain for MRI review and follow up documented as of this encounter Visit Diagnoses Not on filedocumented in this encounter Care Teams Tubular Splitting Machine Tender Relationship Specialty Start Date End Date Amy Collier NP [address] [place] [address] PCP - General Family Medicine 09/27/24 Carolina Munguia APRN [address] [facility] [address] [place] [address] 12/04/23 Jessica Hope MD [address] [place] [address] Referring Hematology/Oncology 06/14/24 Shereen Smallwood PA-C [address] [facility] [address] [place] [address] [facility] Referring Orthopedics 06/15/24 [place] [address] [place] [address] Specialty Mechanical Assembler Hematology/Oncology 07/31/24 documented as of this encounter
--- OUTSIDE RECORDS SUMMARY | 2024-10-10 15:07 | XMS_ITS | Encounter Summary ---
Author Organization [facility] Address [address] [place] [address] Phone Care Team Providers Care Choral Director Name Role Phone Randy Lu DO Primary Care Provider Encounter Details Date Type Department Care Team (Late st Contact Info) Description 09/20/2021 Orders Only [facility] [address] [place] [address] Conversion, Onbase Social History Tobacco Use Types [...] on filedocumented in this encounter Care Teams Choral Director Relationship Specialty Start Date End Date Randy Lu DO PCP - General 07/21/22 documented as of this encounter
--- OUTSIDE RECORDS SUMMARY | 2024-10-10 15:07 | XMS_ITS | Encounter Summary ---
Author Organization [facility] Address [facility]-[id number] [address] [place] [address] Care Team Providers Care Grounds Keeper Name Role Phone Amy Collier BUILDING DRAFTER-STONE SPREADER OPERATOR Primary Care Provider + Encounter Details Date Type Department Care Team (Late st Contact Info) Description 03/26/2023 Orders Only [facility] Internal [facility] - Family Medicine [address] [place] [address] Amy Collier APRN-STONE SPREADER OPERATOR [address] [place] [address] Social History Tobacco Use Types Packs/Day Years [...] any clubs o r organizations such as cheondoism groups, unions, fraternal or athletic groups, or [...] Answer Date Recorded Total Score 0 03/07/2022 [facility] of Occupat ional Health - Occupational Stress [...] Description 10/12/2024 5:00 PM EDT Hospital Encounter [facility] Surgery [address] [place] [address] Jhon Rosado MD [address], [facility] [address] [place] [address] 10/12/2024 5:00 PM EDT - 10/12/2024 6:15 PM EDT Surgery [facility] Surgery [address] [place] [address] Jhon Rosado MD [address], [facility] [address] [place] [address] DEBRIDEMENT BREAST 10/26/2024 8:30 AM EDT Telephone Visit [facility] Gynecology Oncology, Department of [place] [address] [facility] [address] [place] [address] Raymond Sepulveda MD [address] [place] [address], [address] [place], [place] [phone] Scheduled Procedures Name Priority Associated Diagnoses Date/Ti me DEBRIDEMENT BREAST BREAST WOUND LEFT 10/12/2024 5:00 PM EDT documented as of this encounter Procedures Procedure Name Priority Date/Time Associated Diagnosis Comments H-US BREAST RT COMPLETE Routine 03/26/2023 1:52 PM EST documented in this encounter Results * Ultrasound breast complete right (03/26/2023 1:52 PM EST) Anatomical Region Laterality Modality Breast Right Ultrasound Amy LINDQUIST IM US ORDERABLES Final Result documented in this encounter Visit Diagnoses Not on filedocumented in this encounter Additional Health Concerns Infection Onset Date Last Indicated Resolved Time SLACK COOPER Comment:LT CHEST WALL TISSUE(08/12/24) 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
--- OUTSIDE RECORDS SUMMARY | 2024-10-10 15:07 | XMS_ITS | Encounter Summary ---
Author Organization [facility] Address [place]-[id number] [address] [place] [address] Care Team Providers Care Underwriting Internship Name Role Phone Amy Collier SKIVER MACHINE OPERATOR-CASKET COVERER Primary Care Provider + Encounter Details Date Type Department Care Team (Late st Contact Info) Description 07/14/2023 Orders Only [facility] Internal Medicine - Family Medicine [address] [place] [address] External, Scanning Provider Social History [...] How often do you attend chur or sabianism services? More than 4 times [...] Recorded Total Score 0 03/07/2022 [facility] of Occupat ional Health - Occupational [...] 5:00 PM EDT Hospital Encounter [facility] - Surgery [address] [place] [address] Jhon Rosado MD [address], [facility] [address] [place] [address] 10/12/2024 5:00 PM EDT - 10/12/2024 6:15 PM EDT Surgery [facility] - Surgery [address] [place] [address] Jhon Rosado MD [address], [facility] [address] [place] [address] DEBRIDEMENT BREAST 10/26/2024 8:30 AM EDT Telephone Visit [facility] Gynecology Oncology, Department of [address] [facility] [address] [place] [address] Raymond Sepulveda MD [address] [place] [address], [address] [place] [address] Scheduled Procedures Name Priority Associated [...] Infection Onset Date Last Indicated Resolved Time MACHINERY CLEANER Comment:LT CHEST WALL TISSUE(08/12/24) 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
--- OUTSIDE RECORDS SUMMARY | 2024-10-10 15:07 | XMS_ITS | Encounter Summary ---
Author Organization [email or web address] Address [facility]-[id number] [address] [place] [address] Care Team Providers Care Credit Cashier Name Role Phone Amy Collier AQUATICS LIFEGUARD-STEREOTYPER APPRENTICE Primary Care Provider + Encounter Details Date Type Department Care Team (Late st Contact Info) Description 04/14/2023 Orders Only [facility] Internal [facility] - Family Medicine [address] [place] [address] Randy Lu, DO [address] [facility] [place] [place] [address] Social History Tobacco Use Types Packs/Day Years [...] Answer Date Recorded Total Score 0 03/07/2022 [facility] [place] of Occupat ional Health - Occupational Stress [...] Description 10/12/2024 5:00 PM EDT Hospital Encounter [facility] Surgery [address] [place] [address] Jhon Rosado MD [address], [facility] [address] [place] [address] 10/12/2024 5:00 PM EDT - 10/12/2024 6:15 PM EDT Surgery [facility] of [facility] Surgery [address] [place] [address] Jhon Rosado MD [address], [facility] [address] [place] [address] DEBRIDEMENT BREAST 10/26/2024 8:30 AM EDT Telephone Visit [facility] Gynecology Oncology, A Department of [place] [address] [facility] [address] [place] [address] Raymond Sepulveda MD [address] [place] [address], [address] [place] [address] Scheduled Procedures Name Priority Associated Diagnoses Date/Ti me DEBRIDEMENT BREAST BREAST WOUND LEFT 10/12/2024 5:00 PM EDT documented as of this encounter Visit Diagnoses Not on filedocumented in this encounter Additional Health Concerns Infection Onset Date Last Indicated Resolved Time HEALTH CARE SANITARY TECHNICIAN Comment:LT CHEST WALL TISSUE(08/12/24) 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
--- OUTSIDE RECORDS SUMMARY | 2024-10-10 15:07 | XMS_ITS | Encounter Summary ---
Author Organization [facility] Address [facility] [place] [address] Care Team Providers Care Soap Tender Name Role Phone Nilda Carolina RICHTER Unavailable [phone] Jessica Hope MD Unavailable [phone] Lynda Manuel LIGHTNING ROD INSTALLER Primary Care Provider [phone] Shereen Smallwood PA-C Unavailable [phone] Radha Martinez RN Unavailable Amy Collier INDUSTRIAL CLEANING TECHNICIAN Primary Care Provider [phone] Source Comments In the event this information is protected by the Federal Confidentiality of Alcohol and Drug AbusePatient Records regulations: The Federal rules restrict any use of the information to criminally investigate or prosecute any alcohol or drug abuse patient.[facility] Encounter Details Date Type Department Care Team (Late st Contact Info) Description 09/26/2024 Cure Form [facility] Brain Tumor Center [address] [place] [phone] Carlos Mccain DO, PhD [address] [facility] [address] [place] [address] Social History Tobacco Use Types Packs/Day Years Used Date Smoking Tobacco: Never Passive Smoke Exposure: Never Smokeless Tobacco: Never Alcohol Use Standard Drinks/Week Comments Not Currently 0 (1 standard drink = 0.6 oz pur e alcohol) Occasional wine [facility] Utilities Answer Date Recorded In the past [...] any time in the past 12 m [facility], were you homeless or living in a mcfp (including now)? No 08/29/2024 Area Deprivation Index Answer Date Milton rded National Score (1-100), lower number is lower ri sk 82 07/21/2024 State Score (1-10), lower number is lower risk 7 07/21/2024 Data from: https://www.neighborhoodatlas.medicine.[facility].edu/. Last address used for calculation [address] 07/21/2024 Comments Unknown Sex and Gender Information Value Date Recorded Sex Assigned at Not on file Legal Sex Female 3:51 PM EDT Gender Identity Not on file Sexual Orientation Not on file documented as of this encounter Plan of Treatment Upcoming Encounters Date Type Department Care Team (Latest Contact Info) Description 11/29/2024 10:20 AM EDT Appointment [facility] [place]iology [place] [address] [place] [address] With Perfusion 12/01/2024 2:[address] [facility] Brain Tumor Center [address] [place] [address] Carlos Mccain DO, PhD [address] [facility] [address] [place], [place] [phone] Established patient Visit with Dr. Mccain for MRI review and follow up documented as of this encounter Visit Diagnoses Not on filedocumented in this encounter Care Teams Soap Tender Relationship Specialty Start Date End Date Lynda Manuel CNP [address] [place] [address] PCP - General Family Medicine 06/14/24 09/26/24 Amy Collier NP [address] [place] [address] PCP - General Family Medicine 09/27/24 Carolina Munguia APRN [address] [facility] [address] [address] 12/04/23 Jessica Hope MD [address] [place] [address] Referring Hematology/Oncology 06/14/24 Shereen Smallwood PA-C 5[address] [facility] [address] [place] [address] [facility] Referring Orthopedics 06/15/24 [place] [address] [place] [address] Specialty Cable Installation Manager Hematology/Oncology 07/31/24 documented as of this encounter
--- OUTSIDE RECORDS SUMMARY | 2024-10-10 15:07 | XMS_ITS | Encounter Summary ---
Author Organization [facility] Address [address] [place] [address] Care Team Providers Care Mold Runner Name Role Phone Randy Lu MD Primary Care Provider [phone] Encounter Details Date Type Department Care Team (Late Contact Info) Description 07/13/2023 Abstract [facility] Suzanne DE [facility] [address] [facility] [place] [address] Nahomy Watson LPN [address] [place] [address] [place] [address] Social History Tobacco Use Types Packs/Day Years [...] Office Visit [facility] Suzanne DE SOUZA [address] [facility] [place] [address] Evan Thompson DO [address] [facility] [address] [place] [id number] documented as of this encounter Visit Diagnoses Not on filedocumented in this encounter Care Teams Mold Runner Relationship Specialty Start Date End Date Randy Lu MD PCP - General Family Medicine 04/02/23 documented as of this encounter
--- OUTSIDE RECORDS SUMMARY | 2024-10-10 15:07 | XMS_ITS | Encounter Summary ---
Author Organization [facility] Address [id number] [address] [place] [address] Care Team Providers Care Coloring Machine Operator Name Role Phone Amy Collier CRUSHER SETTER-MANAGER MAIL Primary Care Provider + Encounter Details Date Type Department Care Team (Late st Contact Info) Description 03/10/2023 Orders Only [facility] Internal Medicine - Family Medicine [address] [place] [address] Amy Collier APRN-MANAGER MAIL [address] [place] [address] Abnormal mammogram of right breast Social History [...] 03/07/2022 [facility] [place] of Occupat ional Health - Occupational Stress [...] 5:00 PM EDT Hospital Encounter [facility] Surgery [address] [place] [address] Jhon Rosado MD [address], [facility] [address] [place] [address] 10/12/2024 5:00 PM EDT - 10/12/2024 6:15 PM EDT Surgery [facility] Surgery [address] [place] [address] Jhon Rosado MD [address], [facility] [address] [place] [address] DEBRIDEMENT BREAST 10/26/2024 8:30 AM EDT Telephone Visit [facility] Gynecology Oncology, A Department of [place] [address] [facility] [address] [place] [address] [place] [address] [place] [address], [address] [place] [address] Scheduled Procedures Name Priority Associated Diagnoses Date/Ti [...] Infection Onset Date Last Indicated Resolved Time PUBLIC ADDRESS ANNOUNCER Comment:LT CHEST WALL TISSUE(08/12/24) 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
--- OUTSIDE RECORDS SUMMARY | 2024-10-10 15:07 | XMS_ITS | Encounter Summary ---
Author Organization [facility] Address [address] [place] [address] Care Team Providers Care Parking Lot Attendant Name Role Phone Randy Lu MD Primary Care Provider Encounter Details Date Type Department Care Team (Late Contact Info) Description 11/16/2023 Abstract [facility] Suzanne DE SOUZA [address] [place] [address] Evan Thompson DO [facility] [place] [address] Social History Tobacco Use Types Packs/Day Years [...] EDT Office Visit [facility] Suzanne DE SOUZA [facility] [place] [address] Evan Thompson DO [address] [place] [phone] documented as of this encounter Visit Diagnoses Not on filedocumented in this encounter Care Teams Parking Lot Attendant Relationship Specialty Start Date End Date Randy Lu MD PCP - General Family Medicine 04/02/23 documented as of this encounter
--- OUTSIDE RECORDS SUMMARY | 2024-10-10 15:07 | XMS_ITS | Encounter Summary ---
Author Organization [employer] Address [id number] [address] [place] [address] Care Team Providers Care Research Associate Name Role Phone Amy Collier PHLEBOTOMIST MEDICAL LAB ASSISTANT-SHIP PROPELLER FINISHER Primary Care Provider + Encounter Details Date Type Department Care Team (Late st Contact Info) Description 10/15/2023 Orders Only [facility] Surgical Oncology [address] [facility] [address] [place] [address] Ref Prov, [place] [address] Social History Tobacco Use Types Packs/Day Years [...] Answer Date Recorded Total Score 0 03/07/2022 [facility] of Occupat ional [...] Description 10/12/2024 5:00 PM EDT Hospital Encounter [facility] - Surgery [address] [place] [address] Jhon Rosado MD [address], [facility] [address] [place] [address] 10/12/2024 5:00 PM EDT - 10/12/2024 6:15 PM EDT Surgery [facility] - Surgery [address] [place] [address] Jhon Rosado MD [address], [facility] [address] [place] [address] DEBRIDEMENT BREAST 10/26/2024 8:30 AM EDT Telephone Visit [facility] Gynecology Oncology, A Department of [place] [address] [address] [facility] [address] [place] [address] Raymond Sepulveda MD [address] [place] [address], [address] [place] [address] Scheduled Procedures Name Priority Associated Diagnoses Date/Ti me DEBRIDEMENT BREAST BREAST WOUND LEFT 10/12/2024 5:00 PM EDT documented as of this encounter Procedures Procedure Name Priority Date/Time Associated Diagnosis Comments MULTIPLE LABS Routine 10/15/2023 8:06 AM EDT documented in this encounter Results * Multiple labs (10/15/2023 8:06 AM EDT) us Not In System Ref Prov [facility]AG[facility] Final Res ult MANUALLY TRANSCRIBED RESULTS documented in this encounter Visit Diagnoses Not on filedocumented in this encounter Additional Health Concerns Infection Onset Date Last Indicated Resolved Time MAIL DISTRIBUTION SCHEME EXAMINER Comment:LT CHEST WALL TISSUE(08/12/24) 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
--- OUTSIDE RECORDS SUMMARY | 2024-10-10 15:07 | XMS_ITS | Encounter Summary ---
Author Organization [facility] Address [address] [place] [address] Care Team Providers Care Service Center Assistant Name Role Phone Randy Lu MD Primary Care Provider Encounter Details Date Type Department Care Team (Late Contact Info) Description 01/07/2024 Abstract [facility] Suzanne DE SOUZA [facility] [place] [address] Evan Thompson DO [facility] [place] [address] Social History Tobacco Use Types Packs/Day Years [...] EDT Office Visit [facility] Suzanne DE SOUZA [facility] [place] [address] Evan Thompson DO [address] [place] [phone] documented as of this encounter Visit Diagnoses Not on filedocumented in this encounter Care Teams Service Center Assistant Relationship Specialty Start Date End Date Randy Lu MD PCP - General Family Medicine 04/02/23 documented as of this encounter
--- OUTSIDE RECORDS SUMMARY | 2024-10-10 15:07 | XMS_ITS | Encounter Summary ---
Author Organization [facility] Address [address] [place] [address] Care Team Providers Care Rod Mill Operator Name Role Phone Randy Lu MD Primary Care Provider Encounter Details Date Type Department Care Team (Late Contact Info) Description 07/29/2023 Abstract [facility] Suzanne DE SOUZA [address] [place] [address] Evan Thompson DO [facility] [place] [address] Social History Tobacco Use Types Packs/Day Years [...] EDT Office Visit [facility] Suzanne DE SOUZA [facility] [place] [address] Evan Thompson DO [address] [place] [phone] documented as of this encounter Visit Diagnoses Not on filedocumented in this encounter Care Teams Rod Mill Operator Relationship Specialty Start Date End Date Randy Lu MD PCP - General Family Medicine 04/02/23 documented as of this encounter
--- OUTSIDE RECORDS SUMMARY | 2024-10-10 15:07 | XMS_ITS | Clinical Summary ---
Author Organization [facility] Address [address] [place] [address] Care Team Providers Care Utility Worker [employer] Name Role Phone Carolina Munguia APRN Unavailable [phone] Jessica Hope MD Unavailable [phone] Shereen Smallwood PA-C Unavailable [phone] Radha Martinez RN Unavailable Amy Collier NP Primary Care Provider [phone] Allergies Active Allergy Reactions Criticality Noted Date [...] 0.9 % sodium chloride (NACL 0.9%) infusion 04/15/19 25 Active amikacin (AMIKIN) 500 mg/2 mL soln 07/15/19 25 Active ELIQUIS 5 mg tab(s) Take 5 mg by mouth. 09/18/19 24 Active carvedilol (COREG) 12.5 mg tablet Take 12.5 mg by mouth. 07/15/19 25 Active cyanocobalamin (VITAMIN B-12) 1,000 mcg tab Take 1,000 mcg by mouth. 12/10/19 Active cyclobenzaprin e (FLEXERIL) 10 mg tablet Take 1 tablet by mouth every evening. 04/28/19 24 Active diazePAM (VALIUM) 5 mg tablet Take 1 tablet (5 mg total) by mouth every 12 (twelve) hours as needed for anxiety or muscle spasms (Give 30min prior to dressing change) for up to 10 days for anxiety 05/13/19 Active FEROSUL 325 mg (65 mg iron) tablet Take 1 tablet by mouth two times a day with meals. Active folic acid 1 mg tablet Take 1 mg by mouth. 05/23/19 Active gabapentin (NEURONTIN) 300 mg capsule Take 300 mg by mouth two times a day. 05/02/19 24 Active hydrOXYzine HCl (ATARAX) 25 mg tablet Take 25 mg by mouth. 05/13/19 25 Active imipenem/cilas tatin sodium (IMIPENEM-CILA STATIN INTRAVENOUS) Inject 1,000 mg intravenously two times a day. 05/23/19 Active magnesium oxide 400 mg magnesium tab Take 400 mg by mouth. Active omadacycline (NUZYRA) 150 mg tablet Take 300 mg by mouth. Active oxyCODONE IR (ROXICODONE) 10 mg tab Take 1 tablet by mouth every 6 hours as needed. 06/16/19 25 Active oxyCODONE IR (ROXICODONE) 5 mg immediate release tablet Take 1 tablet (5 mg total) by mouth every 4 hours as needed for pain for up to 7 days. Max Daily Amount 30 mg 05/13/19 25 Active potassium chloride (K-TAB) 10 mEq tablet TAKE TWO TABLETS BY MOUTH TWICE A DAY Active prochlorperazi ne (COMPAZINE) 10 mg tablet 04/21/19 24 Active pyridoxine, vitamin B6, (VITAMIN B6) 50 mg tablet Take 50 mg by mouth. 03/16/19 25 Active spironolactone (ALDACTONE) 25 mg tablet Take 12.5 mg by mouth once daily. 03/26/19 24 Active CLOFAZIMINE, BULK, MISC Take 100 mg by mouth. Active acyclovir (ZOVIRAX) 400 mg tablet Take 1 tablet by mouth two times a day. 60 tablet 09/02/19 25 Active famotidine (PEPCID) 20 mg tablet Take 1 tablet by mouth once daily. Patient should start on September 08, 2024. 10 tablet 09/09/19 25 Active capecitabine (XELODA) 500 mg tablet Take 1,500 mg by mouth. 08/04/19 25 Active acetaminophen (TYLENOL) 325 mg tablet Take 650 mg by mouth q 6 HR. 07/30/19 25 Active naloxone 4 mg/actuation nasal spray (NARCAN) Use 4 mg in the nose at bedtime as needed. 06/16/19 25 Active famotidine (PEPCID) 20 mg tablet Take 1 tablet by mouth once daily for 8 days. Patient should start on October 08, 2024. 8 tablet 10/09/19 25 025 Active dexAMETHasone (DECADRON) 2 mg tablet Take 4mg (2 tablets) by mouth once a day for 4 days, then take 2mg (1 tablet) once a day for 4 days, then stop. Patient should start on October 08, 2024. 12 tablet 10/09/19 25 Active dexAMETHasone (DECADRON) 4 mg tablet Take 1 tablet by mouth daily with breakfast. 30 tablet 09/02/19 25 025 famotidine (PEPCID) 40 mg tablet Take 1 tablet by mouth once daily. 30 tablet 09/02/19 25 025 sulfamethoxazo le-trimethopri m (BACTRIM DS) 800-160 mg per tablet Take 1 tablet by mouth every Thursday, Thursday, and Thursday for 28 days. 12 tablet 09/03/19 25 025 dexAMETHasone (DECADRON) 2 mg tablet Take 2 tablets by mouth daily with breakfast for 5 days, THEN 1 tablet daily with breakfast for 5 days. Patient should start on September 08, 2024. 15 tablet 09/09/19 25 025 iv contrast (will be provided with radiology test)Indicatio ns:Secondary malignant neoplasm of brain (HCC) MRI Brain Localization Inject, intravenously, once for 1 dose.No IV access, insert saline lock prior to beginning of sedation, infusion, injection of imaging exam.Discontinue saline lock post exam. If Pt. has a central line or IVAD, may access for administration according to line specific nursing protocol.Once exam is complete flush line and de-access according to line specific nursing protocol in the MR contrast administration guidelines link 1 each 09/27/19 25 025 iv contrast (will be provided with radiology test)Indicatio ns:Secondary malignant neoplasm of brain (HCC) MRI Brain Inject, intravenously, once for 1 dose.No IV access, insert saline lock prior to beginning of sedation, infusion, injection of imaging exam.Discontinue saline lock post exam. If Pt. has a central line or IVAD, may access for administration according to line specific nursing protocol.Once exam is complete flush line and de-access according to line specific nursing protocol in the MR contrast administration guidelines link 1 each 09/27/19 25 025 Hospital, Clinic, or Other Facility Administered Medication Ordered Dose Route Frequency Start Date End Date Status dexAMETHasone 4 mg tab(s) (DECADRON) 4 mg PO ONCE 10/07/2024 10/07/2024 Ended ALPRAZolam 0.5 mg tab(s) (XANAX) 0.5 mg PO ONCE 10/07/2024 10/07/2024 Ended Active Problems Problem Noted Date Diagnosed Date Acute renal failure 09/08/2024 Iron deficiency anemia 08/28/2024 Secondary malignant neoplasm of brain 08/27/2024 Breast cancer metastasized to liver, unspecified laterality 08/27/2024 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 On complex medication regimen 08/27/2024 Superficial incisional surgical site infection 0 08/27/2024 Hypertension 08/27/2024 Cerebellar mass 08/27/2024 Chemotherapy-induced neuropathy 08/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 08/27/2024 Cancer 08/26/2024 Encounters Date Type Department Care Team Description 10/07/2024 5:00 PM EDT - 10/07/2024 6:30 PM EDT Surgery Anesthesia [address] [address] Carlos Mccain DO, PhD STEREOTACTIC RADIOSURGERY 1 COMPLEX CRANIAL LESION 10/07/2024 5:00 PM EDT Hospital Encounter Anesthesia [address] [address] Carlos Mccain DO, PhD 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] 10/07/2024 9:00 AM EDT Office Visit Neurosurgery [address] [place] [address] Secondary malignant neoplasm of brain (HCC) (Primary Dx) 10/07/2024 7:04 AM EDT - 10/07/2024 11:59 PM EDT Hospital Encounter Radiology [address] [place] [address] 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] Discharge Disposition: Home 10/07/2024 7:04 AM EDT - 10/07/2024 11:59 PM EDT Hospital Encounter Radiology [address] [place] [address] 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] Discharge Disposition: Home 10/07/2024 Operative Note (Enc) [facility] Brain Tumor [place] [id number] Carlos Mccain DO, PhD 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) 10/07/2024 Orders Only Neurosurgery [address] [place], [place] [id number] Carlos Mccain DO, PhD Secondary malignant neoplasm of brain (HCC) (Primary Dx) 10/07/2024 Travel 10/04/2024 Telephone [facility] Brain Tumor [place] [id number] Carlos Mccain DO, PhD Patient Question 09/26/2024 Cure Form [place] [id number] Carlos Mccain DO, PhD Secondary malignant neoplasm of brain (HCC) (Primary Dx) 09/26/2024 Cure Form [facility] Tumor [address] [address] Carlos Mccain DO, PhD 09/23/2024 Telephone [facility] Tumor [place] [id number] Altagracia Johnston, OC Auto Travel Counselor - Other 09/22/2024 Telephone [facility] Tumor [place] [id number] Carlos Mccain DO, PhD 09/16/2024 8:40 AM EDT Office Visit Plastic Surgery [address] [address] Geno Ann APRN.E COMMERCE ARCHITECT Post-operative state (Primary Dx); S/P breast reconstruction; History of breast cancer 09/16/2024 7:30 AM EDT Visit (SP) Office Hematology/[place]olog y [address] [place] [address] Sussy Syed APRN.E [employer]ER[employer] ARCHITECT Breast cancer metastasized to liver, unspecified laterality (HCC) (Primary Dx); Encounter for medication monitoring 09/16/2024 Patient Msg Hematology/[place] y [address] [place] [address] Sussy Syed APRN.E COMMER[employer] ARCHITECT Follow up 09/07/2024 4:30 PM EDT - 09/07/2024 6:00 PM EDT Surgery Anesthesia [address] [address] Carlos Mccain DO, PhD STEREOTACTIC RADIOSURGERY 1 COMPLEX CRANIAL LESION 09/07/2024 4:30 PM EDT Hospital Encounter Anesthesia [address] [address] Carlos Mccain DO, PhD 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] 09/07/2024 9:00 AM EDT Office Visit Neurosurgery [address] [place] [address] Secondary malignant neoplasm of brain (HCC) (Primary Dx) 09/07/2024 7:24 AM EDT - 09/07/2024 11:59 PM EDT Hospital Encounter Radiology [address] [place] [address] 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] Discharge Disposition: Home 09/07/2024 7:23 AM EDT Hospital Encounter Radiology [address] [place] [address] Discharge Disposition: Home 09/07/2024 Radiation Oncology Note Radiation Oncology [address] [place] [address] Sam Chandra MD Completion Note 09/07/2024 Radiation Oncology Note Radiation Oncology [address] [place] [address] Sam Chandra MD Procedure 09/07/2024 Radiation Oncology Note Radiation Oncology [address] [place] [address] Sam Chandra MD Simulation Note 09/07/2024 Operative Note (Enc) [facility] Tumor [place] [id number] Carlos Mccian DO, PhD 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) 09/07/2024 Orders Only Neurosurgery [address] [place], [place] [id number] Carlos Mccain DO, PhD Secondary malignant neoplasm of brain (HCC) (Primary Dx) 09/05/2024 2:00 PM EDT [facility] Radiation Oncology [address] [place], [place] [phone] Marisela Cisneros MD 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) 09/05/2024 Travel 09/05/2024 [place] [address] Provider, [facility] Questionnaire Submission 09/01/2024 Cure Form [address] [address] Carlos Mccain DO, PhD Secondary malignant neoplasm of brain (HCC) (Primary Dx) 09/01/2024 Cure Form [address] [address] Carlos Mccain DO, PhD 08/30/2024 2:03 PM EDT - 08/30/2024 3:33 PM EDT Surgery Admitting [address] [place] [address] Leonidas Colorado MD REMOVAL OF TISSUE GEM SETTER(S) W/O INSERTION OF IMPLANT 08/30/2024 12:08 PM EDT Anesthesia Event Admitting [address] [place] [address] Negar Butler MD Kalnitsky, Samuel, MD 08/26/2024 12:49 PM EDT - 09/01/2024 2:03 PM EDT Hospital Encounter HOSP MAIN G070 [address] [place] [address] Dwayne Sahu DO Ornstein, Moshe, MD Delasos, Lukas, DO [facility] Discharge Disposition: Home 08/10/2024 Results Follow-Up Hematology/[place]olog y [address] [place] [address] Aurelia Oneill MD 07/27/2024 Patient Msg Hematology/Oncolog y [address] [place] [id number] Provider, Ccf Xeloda restart 07/22/2024 Lab Requisition [facility] Laboratory [address] [place] [address] Aurelia Oneill MD Person encountering health services to consult on behalf of another person 07/22/2024 Telephone Hematology/Oncolog y [address] [place] [address] Aurelia Oneill MD Auto Travel Counselor - Other 07/21/2024 3:00 PM EDT Visit (SP) Office Hematology/Oncolog y [address] [place] [address] Aurelia Oneill MD 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) 07/19/2024 8:00 AM EDT Office Visit Infectious Disease [address] [place] [id number] Krystin Lizarraga MD Abscess (Primary Dx); 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 07/19/2024 Travel from Last 3 Months Social History Tobacco Use Types Packs/Day Years Used Date Smoking Tobacco: Never Passive Smoke Exposure: Never Smokeless Tobacco: Never Alcohol Use Standard Drinks/Week Comments Not Currently 0 (1 standard drink = 0.6 oz pur e alcohol) Occasional wine [employer] Answer Date Recorded In the past 12 months has [place], gas, oil, or water [employer] threatened to shut off services in your [...] any time in the past 12 m [facility], were you homeless or living in a chcf (including now)? No 08/29/2024 Area Deprivation Index Answer Date [place] rded National Score (1-100), lower number is lower ri sk 82 07/21/2024 State Score (1-10), lower number is lower risk 7 07/21/2024 Data from: https://www.neighborhoodatlas.medicine.[facility].edu/. Last address used for calculation [...] Pulse 76 10/07/2024 9:06 AM EDT Temperature 36.3 C (97.4 F) 09/16/2024 8:57 AM EDT Respiratory Rate 18 09/16/2024 7:23 AM EDT Oxygen Saturation 98% 10/07/2024 9:06 AM EDT Inhaled Oxygen Concentration - - Weight 91.3 kg (201 lb 4.5 oz) 09/16/2024 7:23 A M EDT Height 177.8 cm (5' 10 ) 08/26/2024 12:59 PM EDT Body Mass Index 28.88 08/26/2024 12:59 PM EDT Plan of Treatment Upcoming Encounters Date Type Department Care Team (Latest Contact Info) Description 11/29/2024 10:20 AM EDT Appointment [facility] [place] [address] [place], [place] [id number] With Perfusion 12/01/2024 2:00 PM EDT [facility] Brain Tumor Center [address] [place] [address] Carlos Mccain DO, PhD [address] [facility] [address] [place] [address] Established patient Visit with Dr. Mccain for MRI review and follow up Health Maintenance Due Date Last Done Comments Cervical Cancer Screening 1981 Annual PCP Team Chronic Dise ase Visit 1988 Anxiety Screening 1988 Depression Screening 1988 HIV Screening 1988 Hepatitis C Screening 1988 Hepatitis B Vaccine (1 of 3 - 19+ 3-dose series) 1989 Pneumococcal Vaccine: 50+ (1 of 2 - PCV) 1989 Shingrix Vaccine (1 of 2) 1989 CT Colonography 10/11/2015 Colonoscopy 10/11/2015 Fecal Occult Blood 10/11/2015 Sigmoidoscopy 10/11/2015 Cologuard (FIT-DNA) 06/06/2024 06/06/2021 Colorectal Cancer Screening 06/06/2024 Mammogram Screening 10/15/2024 10/16/2023, 12/27/2021, 12/27/2021, Additional history exists Influenza Vaccine (#1) 2024 0, 11/14/2019, 12/13/2018, Additional history exists Lipid Screening 01/31/2027 01/31/2022 DTaP,Tdap,Td Vaccine (2 - Td or Tdap) 07/08/2027 07/07/2017 Diabetes Screening 09/02/2027 09/01/2024, 0 08/31/2024, 08/30/2024, Additional history exists Procedures Procedure Name Priority Date/Time Associated Diagnosis Comments CT BRAIN STEREOLOCAL WO IVCON Routine 10/07/2024 8:47 AM EDT Secondary malignant neoplasm of brain (HCC) MRI BRAIN LOCALIZATION W IVCON Routine 10/07/2024 8:38 AM EDT Secondary malignant neoplasm of brain (HCC) PHOTO BREAST BOTH 09/16/2024 9:[address] BRAIN WO IVCON Routine 09/07/2024 8:5 6 AM EDT MRI BRAIN LOCALIZATION W IVCON Routine 09/07/2024 8:44 AM EDT Secondary malignant neoplasm of brain (HCC) PHOSPHORUS INORGANIC Routine 09/01/2024 4:17 AM EDT MAGNESIUM BLD Routine 09/01/2024 4:17 AM EDT COMPREHENSIVE METABOLIC PANEL Routine 09/01/2024 4:17 AM EDT CBC + DIFF Routine 09/01/2024 4:17 AM EDT AMIKACIN PRE DOSE Routine 08/31/2024 8:5 3 AM EDT MRI BRAIN WO/W IVCON STAT 08/31/2024 7:44 AM EDT PHOSPHORUS INORGANIC Routine 08/31/2024 4:21 AM EDT MAGNESIUM BLD Routine 08/31/2024 4:21 AM EDT COMPREHENSIVE METABOLIC PANEL Routine 08/31/2024 4:21 AM EDT CBC + DIFF Routine 08/31/2024 4:21 AM EDT BREAST MARKERS Routine 08/30/2024 12:40 PM EDT Cancer (HCC) History of reconstruction of both breasts SURGICAL PATHOLOGY Routine 08/30/2024 12 :40 PM EDT Cancer (HCC) History of reconstruction of both breasts INTUBATION Routine 08/30/2024 12:30 PM EDT EXC CYST/ABERRANT BREAST TISSUE OPEN 1/> LESION 08/30/2024 11:55 AM EDT Cancer (HCC) History of reconstruction of both breasts REMOVAL TISSUE GEM SETTER W/O INSERTION IMPLANT 08/30/2024 11:55 AM EDT Cancer (HCC) History of reconstruction of both breasts PHOSPHORUS INORGANIC Routine 08/30/2024 3:46 AM EDT MAGNESIUM BLD Routine 08/30/2024 3:46 AM EDT COMPREHENSIVE METABOLIC PANEL Routine 08/30/2024 3:46 AM EDT CBC + DIFF Routine 08/30/2024 3:46 AM EDT PHOSPHORUS INORGANIC Routine 08/29/2024 3:00 AM EDT MAGNESIUM BLD Routine 08/29/2024 3:00 AM EDT COMPREHENSIVE METABOLIC PANEL Routine 08/29/2024 3:00 AM EDT CBC + DIFF Routine 08/29/2024 3:00 AM EDT PHOSPHORUS INORGANIC Routine 08/28/2024 2:58 AM EDT MAGNESIUM BLD Routine 08/28/2024 2:58 AM EDT COMPREHENSIVE METABOLIC PANEL Routine 08/28/2024 2:58 AM EDT CBC + DIFF Routine 08/28/2024 2:58 AM EDT XR CHEST 1V FRONTAL PORT Routine 08/27/2024 9:35 AM EDT PHOSPHORUS INORGANIC Routine 08/27/2024 3:29 AM EDT MAGNESIUM BLD Routine 08/27/2024 3:29 AM EDT COMPREHENSIVE METABOLIC PANEL Routine 08/27/2024 3:29 AM EDT CBC + DIFF Routine 08/27/2024 3:[address] BRAIN WO/W IVCON STAT 08/26/2024 9 :58 PM EDT ECG COMPLETE Routine 08/26/2024 6:20 PM EDT AMIKACIN PRE DOSE STAT 08/26/2024 5:5 3 PM EDT PHOSPHORUS INORGANIC Routine 08/26/2024 5:53 PM EDT MAGNESIUM BLD Routine 08/26/2024 5:53 PM EDT COMPREHENSIVE METABOLIC PANEL Routine 08/26/2024 5:53 PM EDT CBC + DIFF Routine 08/26/2024 5:53 PM EDT OUTSIDE SURG PATH SLIDE REVIEW Routine 07/22/2024 3:52 PM EDT Person encountering health services to consult on behalf of another person PHOTO BREAST LEFT 07/19/2024 9:0 8 AM EDT PHOTO BREAST LEFT 07/19/2024 9:0 7 AM EDT from Last 3 Months Results * CT BRAIN STEREOLOCAL WO IVCON (10/07/2024 8:47 AM EDT) Anatomical Region Laterality Modality Head Computed Tomogra phy 10/07/2024 8:47 AM EDT Impressions 10/07/2024 8:58 AM EDT IMPRESSION: Examination performed for preprocedural planning purposes. Strainer Mill Operator: CARLOS Transcribe Date/Time: Oct 07 2024 8:54A [...] this is for gk planning purposes. - [id number] - - - - TECHNIQUE: CT head [...] or retention cysts in both maxillary antra. Single Stroke Preformer (topogram) images: No additional findings. Procedure Note Provider, [facility] [place] - 10/07/2024 * * *Final Report* * [...] this is for gk planning purposes. - [id number] - - - - TECHNIQUE: CT head [...] or retention cysts in both maxillary antra. Single Stroke Preformer (topogram) images: No additional findings. IMPRESSION IMPRESSION: Examination performed for preprocedural planning purposes. Strainer Mill Operator: CARLOS Transcribe Date/Time: Oct 07 2024 8:54A [...] and left inferior frontal lesion from 09/07/2024. Strainer Mill Operator: CARLOS Transcribe Date/Time: Oct 07 2024 8:56A [...] this is for gk planning purposes - [id number] - - - - TECHNIQUE: MRI brain [...] Basal cisterns are clear. Procedure Note Provider, [facility] - 10/07/2024 * * *Final Report* * [...] this is for gk planning purposes - [id number] - - - - TECHNIQUE: MRI brain [...] and left inferior frontal lesion from 09/07/2024. Strainer Mill Operator: CARLOS Transcribe Date/Time: Oct 07 2024 8:56A Dictated by : MACIE PIZANO DO This examination was interpreted and the report reviewed and electronically signed by: MACIE PIZANO DO on Oct 07 2024 9:01AM EST Carlos Mccain DO, PhD MRI-PAMA Final Resul t * PHOTO BREAST BOTH (09/16/2024 9:04 AM EDT) Anatomical Region Laterality Modality Other 09/16/2024 9:04 AM EDT [facility] Provider IMAGES Final Result * CT BRAIN WO IVCON (09/07/2024 8:56 AM EDT) Anatomical Region Laterality Modality Head Computed Tomogra phy 09/07/2024 8:56 AM EDT Impressions 09/07/2024 9:14 AM EDT IMPRESSION: Imaging for gamma knife planning, no acute intracranial pathology. Strainer Mill Operator: [facility] Transcribe Date/Time: Sep 07 2024 9:09A Dictated by : SMILEY KING MD This examination was interpreted and the report reviewed and electronically signed by: SMILEY KING MD on Sep 07 2024 9:11AM EST Narrative 09/07/2024 9:14 AM EDT * * *Final Report* * * DATE OF EXAM: Sep 07 2024 8:56AM [facility] 0504 - CT BRAIN WO IVCON / PROCEDURE REASON: Secondary malignant neoplasm of brain (HCC) * * * * Physician Interpretation * * * * EXAMINATION: CT BRAIN WO IVCON CLINICAL HISTORY: Secondary malignant neoplasm of brain, Gamma knife planning TECHNIQUE: Serial axial images without IV contrast were obtained from the vertex to the foramen magnum. MQ: CTBWO_3 CT Radiation dose: Integrated Dose-Length Product (DLP) for this visit = 988 mGy*cm CT Dose Reduction Employed: Automated exposure control (AEC) COMPARISON: Brain MRI, same day and head CT, 08/26/2024 RESULT: Localizer images: No additional findings. Post-operative change: None. Acute change: No evidence of an acute infarct or other acute parenchymal process. Hemorrhage: No evidence of acute intracranial hemorrhage. ECASS hemorrhagic transformation score: Not Applicable Mass Lesion / Mass Effect: The lesion in the cerebellar vermis with associated vasogenic edema was better characterized on the recent MRI. Additional left frontal lesions are not well visualized on the current exam. No new intracranial mass effect. No abnormal extra axial collection. No midline shift or herniation. The basal cisterns are patent. Chronic change: Unchanged prominent perivascular spaces in the basal ganglia. Nonspecific low-attenuation in the white matter, similar to previous. Parenchyma: There is no significant volume loss. The brain parenchyma is otherwise within normal limits for age. Ventricles: The ventricles are within normal limits of size and configuration for age. Paranasal sinuses and skull base: Scattered paranasal sinus mucosal thickening with nonspecific opacification of the left frontal sinus, similar to previous. The skull base and imaged soft tissues are unremarkable. Procedure Note Provider, [facility] - 09/07/2024 * * *Final Report* * * DATE OF EXAM: Sep 07 2024 8:56AM [facility] 0504 - CT BRAIN WO IVCON / PROCEDURE REASON: Secondary malignant neoplasm of brain (HCC) * * * * Physician Interpretation * * * * EXAMINATION: CT BRAIN WO IVCON CLINICAL HISTORY: Secondary malignant neoplasm of brain, Gamma knife planning TECHNIQUE: Serial axial images without IV contrast were obtained from the vertex to the foramen magnum. MQ: CTBWO_3 CT Radiation dose: Integrated Dose-Length Product (DLP) for this visit = 988 mGy*cm CT Dose Reduction Employed: Automated exposure control (AEC) COMPARISON: Brain MRI, same day and head CT, 08/26/2024 RESULT: Localizer images: No additional findings. Post-operative change: None. Acute change: No evidence of an acute infarct or other acute parenchymal process. Hemorrhage: No evidence of acute intracranial hemorrhage. ECASS hemorrhagic transformation score: Not Applicable Mass Lesion / Mass Effect: The lesion in the cerebellar vermis with associated vasogenic edema was better characterized on the recent MRI. Additional left frontal lesions are not well visualized on the current exam. No new intracranial mass effect. No abnormal extra axial collection. No midline shift or herniation. The basal cisterns are patent. Chronic change: Unchanged prominent perivascular spaces in the basal ganglia. Nonspecific low-attenuation in the white matter, similar to previous. Parenchyma: There is no significant volume loss. The brain parenchyma is otherwise within normal limits for age. Ventricles: The ventricles are within normal limits of size and configuration for age. Paranasal sinuses and skull base: Scattered paranasal sinus mucosal thickening with nonspecific opacification of the left frontal sinus, similar to previous. The skull base and imaged soft tissues are unremarkable. IMPRESSION IMPRESSION: Imaging for gamma knife planning, no acute intracranial pathology. Strainer Mill Operator: [facility] Transcribe Date/Time: Sep 07 2024 9:09A Dictated by : SMILEY KING MD This examination was interpreted and the report reviewed and electronically signed by: SMILEY KING MD on Sep 07 2024 9:11AM EST Carlos Mccain DO, PhD CT-PAMA Final Resul t * MRI BRAIN LOCALIZATION W IVCON (09/07/2024 8:44 AM EDT) Anatomical Region Laterality Modality Head Magnetic Resonan ce 09/07/2024 8:44 AM EDT Impressions 09/07/2024 8:56 AM EDT IMPRESSION: Unchanged presumed metastases in the inferior left frontal lobe and cerebellar vermis. Unchanged small enhancing nodule at the periphery of the left frontal lobe, possibly an additional metastasis or an incidental meningioma. No new enhancing lesion. Strainer Mill Operator: [facility] Transcribe Date/Time: Sep 07 2024 8:44A Dictated by : SMILEY KING MD This examination was interpreted and the report reviewed and electronically signed by: SMILEY KING MD on Sep 07 2024 8:54AM EST Narrative 09/07/2024 8:56 AM EDT * * *Final Report* * * DATE OF EXAM: Sep 07 2024 8:44AM CAM 0289 - MRI BRAIN LOCAL W IVCON / PROCEDURE REASON: Secondary malignant neoplasm of brain (HCC) * * * * Physician Interpretation * * * * EXAMINATION: MRI BRAIN LOCAL W IVCON HISTORY: Secondary malignant neoplasm of brain (HCC); metastatic breast cancer TECHNIQUE: High-resolution postcontrast T1-weighted images of the brain were obtained for surgical planning. Contrast: 9.5 mL Elucirem IV COMPARISON: Brain MRI, 08/31/2024 FINDINGS: An external marker is noted on the right. The heterogeneously enhancing nodule in the cerebellar vermis measures 1.9 x 1.2 cm, similar to previous. Prominent enhancement of the inferior cerebellar sulci is similar to previous and appears vascular. A 2 mm enhancing nodule in the inferior left frontal lobe (series 2, image 84) is unchanged. Unchanged 3 x 5 mm peripheral enhancing nodule in the left frontal, possibly extra-axial (image 39). No other abnormal enhancement. Associated T1 hypointense signal is similar to previous and consistent with vasogenic edema. The ventricles are unchanged in size and configuration. No midline shift or herniation. The basal cisterns are patent. Procedure Note Provider, [facility] - 09/07/2024 * * *Final Report* * * DATE OF EXAM: Sep 07 2024 8:44AM CAM 0289 - MRI BRAIN LOCAL W IVCON / PROCEDURE REASON: Secondary malignant neoplasm of brain (HCC) * * * * Physician Interpretation * * * * EXAMINATION: MRI BRAIN LOCAL W IVCON HISTORY: Secondary malignant neoplasm of brain (HCC); metastatic breast cancer TECHNIQUE: High-resolution postcontrast T1-weighted images of the brain were obtained for surgical planning. Contrast: 9.5 mL Elucirem IV COMPARISON: Brain MRI, 08/31/2024 FINDINGS: An external marker is noted on the right. The heterogeneously enhancing nodule in the cerebellar vermis measures 1.9 x 1.2 cm, similar to previous. Prominent enhancement of the inferior cerebellar sulci is similar to previous and appears vascular. A 2 mm enhancing nodule in the inferior left frontal lobe (series 2, image 84) is unchanged. Unchanged 3 x 5 mm peripheral enhancing nodule in the left frontal, possibly extra-axial (image 39). No other abnormal enhancement. Associated T1 hypointense signal is similar to previous and consistent with vasogenic edema. The ventricles are unchanged in size and configuration. No midline shift or herniation. The basal cisterns are patent. IMPRESSION IMPRESSION: Unchanged presumed metastases in the inferior left frontal lobe and cerebellar vermis. Unchanged small enhancing nodule at the periphery of the left frontal lobe, possibly an additional metastasis or an incidental meningioma. No new enhancing lesion. Strainer Mill Operator: CARLOS Transcribe Date/Time: Sep 07 2024 8:44A Dictated by : SMILEY KING MD This examination was interpreted and the report reviewed and electronically signed by: SMILEY KING MD on Sep 07 2024 8:54AM EST Carlos Mccain DO, PhD MRI-PAMA Final Resul t * MAGNESIUM (09/01/2024 4:17 AM EDT) Only the most recent of7 resultswithin the time period is included. Magnesium 2.1 1.7 - 2.3 mg/dL 09/01/2024 5:58 AM EDT [facility] Blood BLOOD SPECIMEN / Unknown Venipuncture / Unknown 09/01/2024 4:17 AM EDT 09/01/2024 4:30 AM EDT Deena Payan DO LABORATORY Final Result Performing Organization Address [facility] Co de Phone Number [facility] [address] [place] [address], [place] * PHOSPHORUS INORGANIC (09/01/2024 4:17 AM EDT) Only the most recent of7 resultswithin the time period is included. Phosphorus 3.4 2.7 - 4.8 mg/dL 09/01/2024 5:58 AM EDT [facility] Blood BLOOD SPECIMEN / Unknown Venipuncture / Unknown 09/01/2024 4:17 AM EDT 09/01/2024 4:30 AM EDT Deena Payan DO LABORATORY Final Result Performing Organization Address [facility] Co de Phone Number [facility] [address] [place] [address], [place] * (ABNORMAL) COMPREHENSIVE METABOLIC PANEL (09/01/2024 4:17 AM EDT) Only the most recent of7 resultswithin the time period is included. Protein, Total 5.7(L) 6.3 - 8.0 g/dL 09/01/2024 5:58 AM [facility] Albumin 3.7(L) 3.9 - 4.9 g/dL 09/01/2024 5:58 AM [facility] Calcium, Total 8.9 8.5 - 10.2 mg/dL 09/01/2024 5:58 AM [facility] Bilirubin, Total 0.5 0.2 - 1.3 mg/dL 09/01/2024 5:58 AM [facility] Alkaline Phosphatase 75 34 - 123 U/L 09/01/2024 5:58 AM [facility] AST 72(H) 13 - 35 U/L 09/01/2024 5:58 AM [facility] ALT 109(H) 7 - 38 U/L 09/01/2024 5:58 AM [facility] Glucose 105(H) 74 - 99 mg/dL 09/01/2024 5:58 AM [facility] Comment: The [place] Diabetes Association (ADA) provides guidance for cutoff values for fasting glucose and random glucose. The ADA defines fasting as no caloric intake for at least 8 hours. Fasting plasma glucose results between 100 to 125 mg/dL indicate increased risk for diabetes (prediabetes). Fasting plasma glucose results greater than or equal to 126 mg/dL meet the criteria for diagnosis of diabetes. In the absence of unequivocal hyperglycemia, results should be confirmed by repeat testing. In a patient with classic symptoms of hyperglycemia or hyperglycemic crisis, random plasma glucose results greater than or equal to 200 mg/dL meet the criteria for diagnosis of diabetes. Reference: Standards of Medical Care in Diabetes 2016, [place] Diabetes Association. Diabetes Care. 2016.39(Suppl 1). BUN 19 7 - 21 mg/dL 09/01/2024 5:58 AM [facility] Creatinine 1.03(H) 0.58 - 0.96 mg/dL 09/01/2024 5:58 AM [facility] Sodium 140 136 - 144 mmol/L 09/01/2024 5:58 AM [facility] Potassium 4.0 3.7 - 5.1 mmol/L 09/01/2024 5:58 AM [facility] Chloride 107 98 - 107 mmol/L 09/01/2024 5:58 AM EDT [facility] CO2 23 22 - 30 mmol/L 09/01/2024 5:58 AM EDT [facility] Anion Gap 10 8 - 15 mmol/L 09/01/2024 5:58 AM EDT [facility] Estimated Glomerular Filtration Rate 65 >=60 mL/min/1. 73m 09/01/2024 5:58 AM EDT [facility] Comment:Estimated Glomerular Filtration Rate (eGFR) is calculated using the 2020 CKD-EPI creatinine equation. This equation utilizes serum creatinine, sex, and age as parameters. The creatinine assay has traceable calibration to isotope dilution- mass spectrometry. Refer to KDIGO guidelines for clinical interpretation. In patients with unstable renal function, e.g. those with acute kidney injury, the eGFR may not accurately reflect actual GFR. Blood BLOOD SPECIMEN / Unknown Venipuncture / Unknown 09/01/2024 4:17 AM EDT 09/01/2024 4:30 AM EDT us Deena Payan DO LABORATORY Final Result [facility] [address] [place] [address], * (ABNORMAL) COMPLETE BLOOD COUNT AND DIFFERENTIAL (09/01/2024 4:17 AM EDT) Only the most recent of7 resultswithin the time period is included. WBC 7.56 3.70 - 11.00 k/uL 09/01/2024 4:54 AM EDT [facility] RBC 2.90(L) 3.90 - 5.20 m/uL 09/01/2024 4:54 AM EDT [facility] Hemoglobin 9.5(L) 11.5 - 15.5 g/dL 09/01/2024 4:54 AM EDT [facility] Hematocrit 28.1(L) 36.0 - 46.0 % 09/01/2024 4:54 AM EDT [facility] MCV 96.9 80.0 - 100.0 fL 09/01/2024 4:54 AM EDT [facility] MCH 32.8 26.0 - 34.0 pg 09/01/2024 4:54 AM EDT [facility] MCHC 33.8 30.5 - 36.0 g/dL 09/01/2024 4:54 AM EDT [facility] RDW-CV 19.4(H) 11.5 - 15.0 % 09/01/2024 4:54 AM EDT [facility] Platelet Count 210 150 - 400 k/uL 09/01/2024 4:54 AM EDT [facility] MPV 9.4 9.0 - 12.7 fL 09/01/2024 4:54 AM EDT [facility] Neutrophils % 77.9 % 09/01/2024 4:54 AM EDT [facility] Abs Neut 5.88 1.45 - 7.50 k/uL 09/01/2024 4:54 AM EDT [facility] Lymphocytes % 16.1 % 09/01/2024 4:54 AM EDT [facility] Abs Lymph 1.22 1.00 - 4.00 k/uL 09/01/2024 4:54 AM EDT [facility] Monocytes % 5.0 % 09/01/2024 4:54 AM EDT [facility] Abs [place] 0.38 <0.87 k/uL 09/01/2024 4:54 AM EDT [facility] Eosinophils % 0.0 % 09/01/2024 4:54 AM EDT [facility] Abs Eosin <0.03 <0.46 k/uL 09/01/2024 4:54 AM EDT [facility] Basophils % 0.1 % 09/01/2024 4:54 AM EDT [facility] Abs Baso <0.03 <0.11 k/uL 09/01/2024 4:54 AM EDT [facility] Immature Granulocytes % 0.9 % 09/01/2024 4:54 AM EDT [facility] Abs Immature Gran 0.07 <0.10 k/uL 025 4:54 AM EDT [facility] NRBC 0.0 /100 WBC 09/01/2024 4:54 AM EDT [facility] Absolute nRBC <0.01 <0.01 k/uL 09/01/2024 4:54 AM EDT [facility] Diff Type Auto 09/01/2024 4:54 AM EDT [facility] Blood BLOOD SPECIMEN / Unknown Venipuncture / Unknown 09/01/2024 4:17 AM EDT 09/01/2024 4:30 AM EDT Deena Ora DO LABORATORY Final Result Performing Organization Address [facility] Co de Phone Number [facility] [address] [place] [address], [place] * (ABNORMAL) AMIKACIN PRE DOSE (08/31/2024 8:53 AM EDT) Only the most recent of2 resultswithin the time period is included. [facility] Amikacin, Pre Dose <0.8(L) 5.0 - 8.0 ug/mL 08/31/2024 11:37 AM EDT [facility] Comment: Reference ranges and high/low indicator flags are provided as general guidelines only. The treating physician must determine appropriate target levels/dosing based on the specific clinical situation. Result rechecked. Blood BLOOD SPECIMEN / Unknown Venipuncture / Unknown 08/31/2024 8:53 AM EDT 08/31/2024 9:00 AM EDT us Deena Ora DO LABORATORY Final Result Performing Organization Address [facility]/ZIP Co de Phone Number [facility] [address] [place] [phone], [place] * MRI BRAIN WO/W IVCON (08/31/2024 7:44 AM EDT) Anatomical Region Laterality Modality Head Magnetic Resonan ce 08/31/2024 7:44 AM EDT Impressions 08/31/2024 7:56 AM EDT IMPRESSION: 1. Multiple enhancing lesions representing metastasis. 2. At least 3 definite metastasis with dominant in inferior vermis. 3. Enhancement at left IAC apex is of unclear etiology. Strainer Mill Operator: P[facility] Transcribe Date/Time: Aug 31 2024 7:49A Dictated by : ANA BULLARD MD This examination was interpreted and the report reviewed and electronically signed by: ANA BULLARD MD on Aug 31 2024 7:54AM EST Narrative 08/31/2024 7:56 AM EDT * * *Final Report* * * DATE OF EXAM: Aug 31 2024 7:44AM QBM 0295 - MRI BRAIN WO/W IVCON / PROCEDURE REASON: Metastatic disease evaluation * * * * Physician Interpretation * * * * COMPARISONS: Head CT from 08/26/2024. HISTORY: Metastatic brain disease. TECHNIQUE: MRI brain without and with contrast. MQ: [id number]_2 CONTRAST: 9 mL Elucirem IV. RESULT: MRI BRAIN: Acute abnormality: Posterior fossa lesion/mass. Again identified is prominent enhancing lesion at inferior aspect of vermis on series 16 image 125 at 13 (AP) x 20 (T) x 15 (CC) mm with local vasogenic edema. Additional lesion at left superior frontal cortex on series 16 image 48 at 5 mm. Third lesion at inferior left frontal lobe at 2 mm on image 94 series 16. Punctate enhancement at left IAC apex on series 16 image 125 (this would either be metastasis or small vestibular schwannoma and cannot be differentiated on imaging). No additional enhancing lesions are identified. Given multiple lesions these findings are consistent with brain metastatic disease. No additional enhancement within the brain or meninges or soft tissues. Mild accentuation of enhancement within the folia is likely related to venous congestion rather than leptomeningeal carcinomatosis, however, may be further characterized by CSF evaluation if indicated. No restricted diffusion concerning for acute ischemia. No susceptibility concerning for acute hemorrhage. Otherwise allowing for difference in modality stable and age expected remaining sulci, gyri, ventricles, CSF spaces, brain, bones & skull base without any additional enhancing lesions. No additional mass effect or collections. Procedure Note Provider, [facility] [place] - 08/31/2024 * * *Final Report* * * DATE OF EXAM: Aug 31 2024 7:44AM QBM 0295 - MRI BRAIN WO/W IVCON / PROCEDURE REASON: Metastatic disease evaluation * * * * Physician Interpretation * * * * COMPARISONS: Head CT from 08/26/2024. HISTORY: Metastatic brain disease. TECHNIQUE: MRI brain without and with contrast. MQ: [id number]_2 CONTRAST: 9 mL Elucirem IV. RESULT: MRI BRAIN: Acute abnormality: Posterior fossa lesion/mass. Again identified is prominent enhancing lesion at inferior aspect of vermis on series 16 image 125 at 13 (AP) x 20 (T) x 15 (CC) mm with local vasogenic edema. Additional lesion at left superior frontal cortex on series 16 image 48 at 5 mm. Third lesion at inferior left frontal lobe at 2 mm on image 94 series 16. Punctate enhancement at left IAC apex on series 16 image 125 (this would either be metastasis or small vestibular schwannoma and cannot be differentiated on imaging). No additional enhancing lesions are identified. Given multiple lesions these findings are consistent with brain metastatic disease. No additional enhancement within the brain or meninges or soft tissues. Mild accentuation of enhancement within the folia is likely related to venous congestion rather than leptomeningeal carcinomatosis, however, may be further characterized by CSF evaluation if indicated. No restricted diffusion concerning for acute ischemia. No susceptibility concerning for acute hemorrhage. Otherwise allowing for difference in modality stable and age expected remaining sulci, gyri, ventricles, CSF spaces, brain, bones & skull base without any additional enhancing lesions. No additional mass effect or collections. IMPRESSION IMPRESSION: 1. Multiple enhancing lesions representing metastasis. 2. At least 3 definite metastasis with dominant in inferior vermis. 3. Enhancement at left IAC apex is of unclear etiology. Strainer Mill Operator[facility] Transcribe Date/Time: Aug 31 2024 7:49A Dictated by : ANA BULLARD MD This examination was interpreted and the report reviewed and electronically signed by: ANA BULLARD MD on Aug 31 2024 7:54AM EST [facility] DO MRI-PAMA Final Result * SURGICAL PATHOLOGY (08/30/2024 12:40 PM EDT) Case Report Surgical Pathology Report Case: [id number] Authorizing Provider: Leonidas [place] MD Collected: 08/30/2024 12:40 PM Ordering Location: Admitting Received: 08/30/2024 01:02 PM Pathologist: Tracie Hutchinson MD Specimens: A) - Soft Tissue (Not otherwise specified), right breast skin B) - Hardware/Device/Fo reign Body, right breast bath house attendant 09/01/2024 2:20 PM EDT [facility] FINAL DIAGNOSIS A. Right breast skin, excision: - Carcinoma involving dermis, see comment. B. Right breast, bath house attendant removal: - Grossly unremarkable, collapsed, textured bath house attendant (Gross examination only). SS/MLG 09/01/2024 2:20 PM EDT [facility] at 1420 EDT Diagnosis Comment The morphologic features are compatible with breast origin. The lesion measures up to 10 mm and extends to inked specimen margins. ER, FL and HER2 are pending and will be reported separately. 09/01/2024 2:20 PM EDT [facility] Gross Description A. Soft Tissue (Not otherwise specified) Received in formalin labeled right breast skin is an unoriented segment of skin with minimal soft tissue, measuring 3.8 x 1.0 x 0.7 cm. In the central skin surface is a 1.0 x 0.9 x 0.3 cm firm, mahmood nodule abutting the nearest peripheral and deep margins. The cut surfaces a mahmood-white, firm glistening nodule. No additional lesion is present. Entirely submitted as follows: A1: Tips A2-A3: Body Z 08/30/24 4:17 PM Gross examination performed at [facility], [address] [place] [address] B. Hardware/Device/Fo reign Body Received fresh labeled as right breast tissue bath house attendant is a collapsed textured bath house attendant weighing 144.10 g and measuring 15.0 x 14.0 x 2.0 cm with the following inscription ALLOX2 SIENTRA FH 14 . No soft tissue is present. No sections are submitted. The specimen is reviewed with Dr. Kerns. Gross examination only. [facility] 08/30/24 1:20 PM Gross examination performed at [facility], [address] [place] [address] 09/01/2024 2:20 PM EDT [facility] Clinical History Pre-op diagnosis: Cancer (HCC) [C80.1] History of reconstruction of both breasts [Z98.890] 09/01/2024 2:20 PM EDT [facility] Performing Lab Diagnostic interpretation performed at: [facility], [address] [facility] [place] [address] CLIA# [id number] Certified Prosthetist Vice President: Derick Meadows MD 09/01/2024 2:20 PM EDT [facility] Disclaimer Laboratory Developed Test (LDT) Disclaimer: Performance characteristics of immunohistochemica l, immunofluorescent, and chromogenic in-situ hybridization tests have been determined by the performing laboratory within [facility] ([facility], [facility], [facility], [facility], [facility], [facility], or [facility]) in a manner consistent with CLIA requirements. One or more of these tests may not have been cleared or approved by the FDA. [facility] is regulated under CLIA as qualified to perform high-complexity testing. These tests are used for clinical purposes. These should not be regarded as investigational or for research. Positive and negative controls stain appropriately. 09/01/2024 2:20 PM EDT [facility] Tissue SOFT TISSUE SPECIMEN / Unknown 08/30/2024 12:40 PM EDT 08/30/2024 1:02 PM EDT Comment:Pre-op diagnosis: Cancer (HCC) [C80.1] History of reconstruction of both breasts [Z98.890] Device specimen (specimen) ELECTRONIC HARDWARE / Unknown 08/30/2024 12:41 PM EDT 08/30/2024 1:02 PM EDT Comment:Pre-op diagnosis: Cancer (HCC) [C80.1] History of reconstruction of both breasts [Z98.890] us Leonidas [place] MD SURGICAL PATHOLOGY Final Resu lt [facility] [address] [place] [address], [place] * BREAST MARKERS (08/30/2024 12:40 PM EDT) ER status Low Positive (1%-10%) 5 2:59 PM EDT [facility] ER % staining 5 5 2:59 PM EDT [facility] Estrogen Receptor (Average Staining Intensity) Weak 5 2:59 PM EDT [facility] Estrogen Receptor Status of Internal Control Absent 5 2:59 PM EDT [facility] Estrogen Receptor External Control Present and Stained as Expected 5 2:59 PM EDT [facility] FL status Negative (less than 1%) 5 2:59 PM EDT [facility] FL % staining 0 5 2:59 PM EDT [facility] Progesterone Receptor (Average Staining Intensity) Not Applicable 5 2:59 PM EDT [facility] Progesterone Receptor Status of Internal Control Absent 5 2:59 PM EDT [facility] Progesterone Receptor External Control Present and Stained as Expected 5 2:59 PM EDT [facility] HER2 IHC Status Negative for HER2 Overexpression 5 2:59 PM EDT [facility] HER2 IHC Score 0 5 2:59 PM EDT [facility] Comment: HER2 Ultralow assessment for HER2 negative (0) tumors by ASCO/CAP Guidelines Percentage of tumor cells with membranous stainin Result: HER2 0 Ultralow Reference range: Ultralow HER2 expression is defined as IHC 0 by ASCO/CAP guidelines but with any membranous staining that is greater than 0 and less than or equal to 10%. Null HER2 expression is defined as IHC 0 by ASCO/CAP guidelines but with no membranous staining at 40X magnification. Philip A, Stephon X, Bethany R, Aurelia K, Jack POLLARD, Alissa JA, Mary H, Deya PETERS, Hank Q, Elena C, Andreas L, Oliver J, Im SA, L vy C, Praveen W, Sera N, Fabio J, Rodrigo G, Gilma G; [id number] Trial Investigators. Trastuzumab Deruxtecan after Endocrine Therapy in Metastatic Breast Cancer. N Engl J Med. 2023Nov 14. doi: 10.1056/[id number]. Epub ahead of print. PMID: [id number]. Sedrick Mckee, Amando Heard, Bill Pedro, Azra A, John B, Mayco H, Yoshi E, Harpreet N, Pankaj C. Development and Validation of a HER2-Low Focused Immunohistochemical Scoring System With High-Interobserver Concordance: The [place] HER2-Low Breast Cancer Concordance Study. Mod Pathol. 2023;378):600507. doi: 10.1016/j.modpat.2023.590242. Epub 2023Aug 07. PMID: [id number]. Tumor Type Carcinoma 5 2:59 PM EDT [facility] Breast Tumor Grade Not Graded 5 2:59 PM EDT [facility] 5 2:59 PM EDT [facility] Block ID A2 5 2:59 PM EDT [facility] Fixative Formalin, 10% Neutra l Buffered 5 2:59 PM EDT [facility] Cold Ischemia Time Not Provided 5 2:59 PM EDT [facility] Total Fixation Time Not Provided 5 2:59 PM EDT [facility] Latest ASCO/CAP guidelines for fixation met Indeterminate (See Comment) 5 2:59 PM EDT [facility] Was Specimen Decalcified No 5 2:59 PM EDT [facility] Interpretation Comment and Reference Range Reference Range for Hormone Receptors: Staining for FL of greater than or equal to 1% of the tumor cells is considered positive. Staining for ER of 1-10% of the tumor cells is considered low positive. Staining for ER of greater than 10% of the tumor cells is considered positive. Staining for ER or FL of less than 1% is considered negative. Reference Ranges for HER2 Immunohistochemistry: Positive (3+): Complete, intense circumferential membrane staining in greater than 10% of tumor cells. Equivocal (2+): Weak to moderate complete membrane staining observed in greater than 10% of tumor cells. Negative (1+): Incomplete, faint membrane staining in greater than 10% of tumor cells. Negative (0): No staining or incomplete faint membrane staining in less than or equal to 10% of tumor cells. Interpretation Comments: Consideration of follow-up testing for HER2 (ERBB2) status by fluorescence in situ hybridization (FISH) for all equivocal (2+) results is recommended and will be ordered as a reflex test if FISH was not a testing methodology already employed. Note for ER low results. For malignancy with a low level (1%-10%) of ER expression by immunohistochemistry, there are limited data on the overall benefit of endocrine therapies for a patient with low level (1%-10%) ER expression, but they currently suggest possible benefits, so patients are considered eligible for endocrine treatment. Some data indicate that invasive cancers with these results are heterogeneous in behavior and biology and often have gene expression profiles more similar to ER-negative cancers. 5 2:59 PM EDT [facility] Method Estrogen Receptor: Food and Drug Administration (FDA) cleared: [employer], [place], [place] Primary Antibody: SP1 Progesterone Receptor: FDA cleared: [employer], [place], [place] Primary Antibody: IE2 HER2 (ERBB2) by IHC: FDA cleared: [employer], [place], [place] Primary Antibody:4B5 The hormone receptor tests were performed and reported in accordance with the guidelines approved by the [place] Society of Clinical Oncologists and the College of [place] Pathologists. Micaela SOTO, et al. Estrogen and Progesterone Receptor Testing in Breast Cancer: [place] Society of Clinical Oncologists and the College of [place] Pathologists Guideline Update. Arch Pathol Lab Med. 2019;144(5):545-563. PMID: [id number]. The hormone receptor assays have been internally validated on decalcified tissues (for [facility] only). Estrogen and progesterone receptor results are valid if tissue was processed according to ASCO/CAP guidelines. Antibody and Detection System: [employer] Pathway anti-HER2 rabbit monoclonal antibody (clone [id number]), [employer] Confirm anti-estrogen receptor rabbit monoclonal antibody (clone SP1) and [employer] anti-progesterone receptor rabbit monoclonal antibody (clone IE2) detected with the [employer] UltraView Univeral DAB Detection Kit (indirect biotin-free detection), [employer], [place], [place]. Control Slides: Cell line controls with high, equivocal, low, and negative HER2 protein expression, along with known positive control tissue and the patient's tissue, are evaluated for HER2 expression. The HER2 immunohistochemistry assay was developed, validated, scored, and reported in accordance with the guidelines approved by the [place] Society of Clinical Oncologists and the College of [place] Pathologists. Bacilio SIEGEL et al. Arch Pathol Lab Med. 2018;1379(9) The HER2 assay has not been validated on decalcified tissues. Given the possibility of false negative results on decalcified specimens, results should be interpreted with caution. 2:59 PM EDT [facility] Disclaimer Laboratory Developed Test (LDT) Disclaimer: Performance characteristics of immunohistochemical, immunofluorescent, and chromogenic in-situ hybridization tests have been determined by the performing laboratory within [facility] Pathology and Laboratory Medicine Department ([facility], [facility], [facility], [facility], [facility], [facility], or [facility]) in a manner consistent with CLIA requirements. One or more of these tests may not have been cleared or approved by the FDA. RT-PLM is regulated under CLIA as qualified to perform high-complexity testing. These tests are used for clinical purposes. These should not be regarded as investigational or for research. Positive and negative controls stain appropriately. 2:59 PM EDT [facility] Performing Lab Diagnostic interpretation performed at: [facility], [address] [place] [address], [place] [address] CLIA# [id number] Certified Prosthetist Vice President: Derick Meadows MD Electronically signed out by: Tracie Hutchinson MD 2:59 PM EDT [facility] Tissue SOFT TISSUE SPECIMEN / Unknown 08/30/2024 12:40 PM EDT 09/04/2024 9:07 AM EDT us Leonidas Colorado MD SURGICAL PATHOLOGY Final Resu lt [address] [place] [address], [place] * Airway (08/30/2024 12:30 PM EDT) Narrative Sam Nevarez MD - 08/30/2024 12:30 PM EDT Sam Nevarez MD 08/30/2024 12:46 PM Airway General Information Procedure Start Time/Medication Administration: 08/30/2024 12:30 PM Procedure End Time: 08/30/2024 12:32 PM Patient location during procedure: OR Timeout Performed Pre-procedure: timeout performed Consent Obtained: Yes Patient identity confirmed: arm band Staffing Anesthesiologist: Negar Butler MD Resident: Sam Nevarez MD Performed by: anesthesiologist and resident Indications and Patient Condition Indications for airway management: anesthesia Preoxygenated: yes anesthesia circuit Patient position: sniffing Final Airway Details Final airway type: endotracheal airway Final Endotracheal Airway: ETT Cuffed: yes Successful intubation technique: video laryngoscopy Devices used: [employer] Endotracheal tube insertion site: oral Blade: Bo Blade size: #3 ETT size (mm): 7.0 Measured from: lips Measurement (cm): 22 Placement verified by: capnometry Cormack-Lehane Classification: grade I - full view of glottis Number of attempts at approach: 1 Negar Butler MD ANESTHESIA ORDERABLES Final Resu lt * XR CHEST 1V FRONTAL PORT (08/27/2024 9:35 AM EDT) Anatomical Region Laterality Modality Chest Radiographic Barbara ging 08/27/2024 9:35 AM EDT Impressions 08/27/2024 9:53 AM EDT IMPRESSION: See result Strainer Mill Operator: PSCB Transcribe Date/Time: Aug 27 2024 9:51A Dictated by : HAN HARRINGTON MD This examination was interpreted and the report reviewed and electronically signed by: HAN HARRINGTON MD on Aug 27 2024 9:51AM EST Narrative 08/27/2024 9:53 AM EDT * * *Final Report* * * DATE OF EXAM: Aug 27 2024 9:35AM JEAN [id number] - XR CHEST 1V FRONTAL PORT / PROCEDURE REASON: Evaluate tube, line, or lead position * * * * Physician Interpretation * * * * EXAMINATION: CHEST RADIOGRAPH (PORTABLE SINGLE VIEW AP) Exam Date/Time: 08/27/2024 9:35 AM Clinical History: Evaluate tube, line, or lead position MQ: XCPMC_6 Comparison: No prior RESULT: Lines, tubes, and devices: LEFT PICC terminates in the lower third of the SVC. Lungs and pleura: No focal airspace consolidation is noted. No substantial pleural effusions or large pneumothorax is identified. Cardiomediastinal silhouette: The cardiomediastinal silhouette is within normal limits for portable projection. Other: Soft tissue bath house attendant is identified in the RIGHT breast with adjacent surgical clips. There is scoliosis of the thoracolumbar spine. Procedure Note Provider, [facility] [place] - 08/27/2024 * * *Final Report* * * DATE OF EXAM: Aug 27 2024 9:35AM JEAN [id number] - XR CHEST 1V FRONTAL PORT / PROCEDURE REASON: Evaluate tube, line, or lead position * * * * Physician Interpretation * * * * EXAMINATION: CHEST RADIOGRAPH (PORTABLE SINGLE VIEW AP) Exam Date/Time: 08/27/2024 9:35 AM Clinical History: Evaluate tube, line, or lead position MQ: XCPMC_6 Comparison: No prior RESULT: Lines, tubes, and devices: LEFT PICC terminates in the lower third of the SVC. Lungs and pleura: No focal airspace consolidation is noted. No substantial pleural effusions or large pneumothorax is identified. Cardiomediastinal silhouette: The cardiomediastinal silhouette is within normal limits for portable projection. Other: Soft tissue bath house attendant is identified in the RIGHT breast with adjacent surgical clips. There is scoliosis of the thoracolumbar spine. IMPRESSION IMPRESSION: See result Strainer Mill Operator: PSCB Transcribe Date/Time: Aug 27 2024 9:51A Dictated by : HAN HARRINGTON MD This examination was interpreted and the report reviewed and electronically signed by: HAN HARRINGTON MD on Aug 27 2024 9:51AM EST us Dwayne Sahu DO RAD-PAMA Final Result * CT BRAIN WO/W IVCON (08/26/2024 9:58 PM EDT) Anatomical Region Laterality Modality Head Computed Tomogra phy 08/26/2024 9:58 PM EDT Impressions 08/26/2024 10:05 PM EDT IMPRESSION: Enhancing lesion in the cerebellar vermis, likely due to intracranial metastasis given history, with vasogenic edema and local mass effect. Strainer Mill Operator: PSCB Transcribe Date/Time: Aug 26 2024 10:00P Dictated by : GEORGIANA CARMICHAEL MD This examination was interpreted and the report reviewed and electronically signed by: GEORGIANA CARMICHAEL MD on Aug 26 2024 10:02PM EST Narrative 08/26/2024 10:05 PM EDT * * *Final Report* * * DATE OF EXAM: Aug 26 2024 9:58PM [facility] [place] 0007 - CT BRAIN WO/W IVCON / PROCEDURE REASON: Brain metastases suspected * * * * Physician Interpretation * * * * EXAMINATION: CT BRAIN WO/W IVCON CLINICAL HISTORY: Brain metastases suspected TECHNIQUE: Serial axial images without and with IV contrast were obtained from the vertex to the foramen magnum. MQ: CTBWOW_1 Contrast: 100 mL Omnip[address] Radiation dose: Integrated Dose-Length Product (DLP) for this visit = 1548 mGy*cm CT Dose Reduction Employed: Automated exposure control (AEC) COMPARISON: None. RESULT: Localizer images: No significant findings. Post-operative change: None. Acute change: There is an enhancing lesion in the cerebellar vermis, measuring up to 1.4 x 1.8 on image 11 series 5 and contiguous images, with adjacent vasogenic edema and local mass effect, likely intracranial metastasis given patient's history. No additional intracranial enhancing lesions are seen by CT. Local mass effect is noted. This lesion was seen on outside CT, which is not available for review. Hemorrhage: There is no evidence of acute intracranial hemorrhage. ECASS hemorrhagic transformation score: Not Applicable Mass Lesion / Mass Effect: See above Chronic change: None apparent. Parenchyma: There is no significant volume loss. Ventricles: The ventricles are within normal limits of size and configuration for age. Paranasal sinuses and skull base: The visualized paranasal sinuses are clear. The skull base and imaged soft tissues are unremarkable. Procedure Note Provider, [facility] [place] - 08/26/2024 * * *Final Report* * * DATE OF EXAM: Aug 26 2024 9:58PM [facility] [place] 0007 - CT BRAIN WO/W IVCON / PROCEDURE REASON: Brain metastases suspected * * * * Physician Interpretation * * * * EXAMINATION: CT BRAIN WO/W IVCON CLINICAL HISTORY: Brain metastases suspected TECHNIQUE: Serial axial images without and with IV contrast were obtained from the vertex to the foramen magnum. MQ: CTBWOW_1 Contrast: 100 mL Omnipaque [address] Radiation dose: Integrated Dose-Length Product (DLP) for this visit = 1548 mGy*cm CT Dose Reduction Employed: Automated exposure control (AEC) COMPARISON: None. RESULT: Localizer images: No significant findings. Post-operative change: None. Acute change: There is an enhancing lesion in the cerebellar vermis, measuring up to 1.4 x 1.8 on image 11 series 5 and contiguous images, with adjacent vasogenic edema and local mass effect, likely intracranial metastasis given patient's history. No additional intracranial enhancing lesions are seen by CT. Local mass effect is noted. This lesion was seen on outside CT, which is not available for review. Hemorrhage: There is no evidence of acute intracranial hemorrhage. ECASS hemorrhagic transformation score: Not Applicable Mass Lesion / Mass Effect: See above Chronic change: None apparent. Parenchyma: There is no significant volume loss. Ventricles: The ventricles are within normal limits of size and configuration for age. Paranasal sinuses and skull base: The visualized paranasal sinuses are clear. The skull base and imaged soft tissues are unremarkable. IMPRESSION IMPRESSION: Enhancing lesion in the cerebellar vermis, likely due to intracranial metastasis given history, with vasogenic edema and local mass effect. Strainer Mill Operator: PSCB Transcribe Date/Time: Aug 26 2024 10:00P Dictated by : GEORGIANA CARMICHAEL MD This examination was interpreted and the report reviewed and electronically signed by: GEORGIANA CARMICHAEL MD on Aug 26 2024 10:02PM EST us Dwayne Sahu DO CT-PAMA Final Result * ECG COMPLETE (08/26/2024 6:20 PM EDT) Ventricular Rate 62 BPM [facility] Atrial Rate 62 BPM [facility] P-R Interval 206 ms [facility] QRS Duration 80 ms [facility] QT Interval 398 ms [facility] QTC Calculation (Bazett) 403 ms [facility] Calculated P Apison 37 degrees [facility] Calculated R Apison 7 degrees [facility] Calculated T Apison 65 degrees [facility] 08/26/2024 6:20 PM EDT Impressions [facility] - 09/08/2024 1:41 PM EDT NORMAL SINUS RHYTHM WITH 1ST DEGREE AV BLOCK LOW VOLTAGE PRECORDIAL LEADS BORDERLINE ECG Confirmed by fellow SUDHA SPICER MD ([id number]) on 09/08/2024 11:22:04 AM Confirmed by MD TRICE, PhD, ISA ([id number]) on 09/08/2024 1:41:33 PM Narrative [facility] - 09/08/2024 1:41 PM EDT NAME : YASMIN JONES PID : [id number] : 1970 Gender : Female Race : ORD : [id number] Procedure Date : Aug 26 2024 18:20:39 Edit Date : Sep 08 2024 13:41:36 Diagnosis: NORMAL SINUS RHYTHM WITH 1ST DEGREE AV BLOCK LOW VOLTAGE PRECORDIAL LEADS BORDERLINE ECG Confirmed by fellow SUDHA SPICER MD ([id number]) on 09/08/2024 11:22:04 AM Confirmed by MD TRICE, PhD, ISA ([id number]) on 09/08/2024 1:41:33 PM Test Reason : Check QT Location : 170 : G70 G070-30 Overread By : MD TRICE, PhD,ISA Edited By : MD TRICE, PhD,ISA Referred By : PK BOSCH Acquired by : GEORGIANA BUNCH Dwayne Sahu DO EKG Final Result [facility] [address] [place] [id number] * OUTSIDE SURG PATH SLIDE REVIEW (07/22/2024 3:52 PM EDT) Case Report Surgical Pathology Report Case: [id number] Authorizing Provider: Aurelia Oneill MD Collected: 07/22/2024 03:52 PM Ordering Location: [facility] Received: 07/22/2024 03:51 PM [facility] Pathologist: Michael López MD Specimen: Slide(s), 11 SLIDES [id number] 08/09/2024 9:01 AM EDT [facility] FINAL DIAGNOSIS Liver mass, biopsy: - Adenocarcinoma, compatible with breast origin. 08/09/2024 9:01 AM EDT [facility] at 1337 EDT Diagnosis Comment Tumor cells are positive for CK7 and GATA3, with weak expression for ER. Negative stains include CK19, FL, and CDX2. 08/09/2024 9:01 AM EDT [facility] Performing Lab Diagnostic interpretation performed at: [facility], [address] [place] [address] CLIA# [id number] Certified Prosthetist Vice President: Derick Meadows MD 08/09/2024 9:01 AM EDT [facility] Addendum Breast biomarkers (ER, PgR, and HER2) performed at the outside institution are available for review at the [facility] and demonstrate the tumor cells to be positive for ER (30% nuclear staining of tumor cells with moderate staining intensity), negative for FL (<1% nuclear staining of tumor cells), and negative for HER2 (score of 1+). [facility] 08/09/24 08/09/2024 9:01 AM EDT [facility] Addendum electronically signed by Kev Kang MD on 08/09/2024 at 0901 EDT Disclaimer Laboratory Developed Test (LDT) Disclaimer: Performance characteristics of immunohistochemica l, immunofluorescent, and chromogenic in-situ hybridization tests have been determined by the performing laboratory within [facility]'s [facility] Pathology and Laboratory Medicine Department ([facility], [facility], [facility], [facility], [facility], [facility], or [facility]) in a manner consistent with CLIA requirements. One or more of these tests may not have been cleared or approved by the FDA. RT-PLM is regulated under CLIA as qualified to perform high-complexity testing. These tests are used for clinical purposes. These should not be regarded as investigational or for research. Positive and negative controls stain appropriately. 08/09/2024 9:01 AM EDT [facility] Blocks or Slides MICROSCOPE SLIDE / Unknown 07/22/2024 3:52 PM EDT 07/22/2024 3:51 PM EDT us Aurelia Oneill MD SURGICAL PATHOLOGY Edited Result - Final [facility] [address] [facility] [address] [address], [place] * PHOTO BREAST LEFT (07/19/2024 9:08 AM EDT) Anatomical Region Laterality Modality Other 07/19/2024 9:08 AM EDT us [facility] Provider IMAGES Final Result * PHOTO BREAST LEFT (07/19/2024 9:07 AM EDT) Anatomical Region Laterality Modality Other 07/19/2024 9:07 AM EDT us [facility] Provider IMAGES Final Result from Last 3 Months Insurance [facility] [employer] MEDICAID [facility] Advance Directives * Full Code (Latest Code Status on File) Date Activated Date Inactivated Comments 08/26/2024 2:51 PM 09/01/2024 5:08 PM Question Answer Comments Full Code Order Discussed With: Patient and Surr ogate Decision Maker Surrogate Decision Maker Name: Jean Carlos Becker Surrogate Decision Maker Relationship: Spouse Care Teams Utility Worker Roller Shop Relationship Specialty Start Date End Date Amy Collier, MONICA [address] [place] [address] PCP - General Family Medicine 09/27/24 Carolina Munguia APRN [address] [facility] [address] [address] 12/04/23 Jessica Hope MD [address] [place] [address] Referring Hematology/Oncology 06/14/24 Shereen Smallwood PANicolasC [address] [facility] [address] [place] [address] [facility] Referring Orthopedics 06/15/24 [place] [address] [place] [address] Specialty Auto Travel Counselor Hematology/Oncology 07/31/24
--- OUTSIDE RECORDS SUMMARY | 2024-10-10 15:07 | XMS_ITS | Encounter Summary ---
Author Organization [facility] Address [facility] [id number] [address] [place] [address] Care Team Providers Care Insurance Coordinator Name Role Phone Amy Collier [employer] FLOOR REFINISHER-MANAGER ANIMAL Primary Care Provider + Encounter Details Date Type Department Care Team (Late st Contact Info) Description 03/30/2023 Orders Only [facility] - Family Medicine [address] [place] [phone] Amy Collier APRN-MANAGER ANIMAL [address] [place] [address] Social History Tobacco Use Types Packs/Day Years [...] Answer Date Recorded Total Score 0 03/07/2022 [facility] [place] of Occupat ional Health - Occupational Stress [...] to let her know that I called [place] and they did not see the results yet but they are going to call their Pathology person and see if they are ready yet and they will get back with me. Patient is ok with that. documented in this encounter Plan of Treatment Upcoming Encounters Date Type Department Care Team (Late st Contact Info) Description 10/12/2024 5:00 PM EDT Hospital Encounter [facility] - Surgery [address] [place] [address] Jhon Rosado MD [address], [address] [facility] [place] [phone] 10/12/2024 5:00 PM EDT - 10/12/2024 6:15 PM EDT Surgery [facility] Surgery [address] [place] [address] Jhon Rosado MD [address] [place] [address] DEBRIDEMENT BREAST 10/26/2024 8:30 AM EDT Telephone Visit [facility] Oncology, A Department of [facility] [address] [place] [address] Raymond Sepulveda MD [address] [place] [address], [address] [place] [address] Scheduled Procedures Name Priority Associated Diagnoses Date/Ti me DEBRIDEMENT BREAST BREAST WOUND LEFT 10/12/2024 5:00 PM EDT documented as of this encounter Visit Diagnoses Not on filedocumented in this encounter Additional Health Concerns Infection Onset Date Last Indicated Resolved Time SENIOR HEALTH PHYSICS TECHNICIAN Comment:LT CHEST WALL TISSUE(08/12/24) 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
--- OUTSIDE RECORDS SUMMARY | 2024-10-10 15:07 | XMS_ITS | Encounter Summary ---
Author Organization [facility] Address [id number] [address] [place] [address] Care Team Providers Care Ada Accommodation Consultant Name Role Phone Amy Collier MORTGAGE PROCESSING MANAGER-SENIOR FIELD ENGINEER Primary Care Provider + Encounter Details Date Type Department Care Team (Late st Contact Info) Description 11/03/2023 Orders Only [facility] - Family Medicine [address] [place] [address] External, Scanning Provider Social History Tobacco Use Types Packs/Day Years Used Date Smoking Tobacco: Never Smokeless Tobacco: Never Alcohol Use Standard Drinks/Week Comments Yes 0 (1 standard drink = 0.6 oz pur e alcohol) Socially [facility] Utilities Answer Date Recorded In the past 12 months has [employer] electric, gas, oil, or water company threatened [...] Total Score 0 03/07/2022 [facility] of Occupat ional Health - Occupational Stress [...] Description 10/12/2024 5:00 PM EDT Hospital Encounter [facility] Division of [facility] - Surgery [address] [place] [phone] Jhon Rosado MD [address], [facility] [address] [place] [phone] 10/12/2024 5:00 PM EDT - 10/12/2024 6:15 PM EDT Surgery [facility] - Surgery [address] [place] [phone] Jhon Rosado MD [address], [facility] [address] [place] [phone] DEBRIDEMENT BREAST 10/26/2024 8:30 AM EDT Telephone Visit [facility] Gynecology Oncology, A Department of [place] [address] [facility] [address] [place] [phone] [place] [address] [place] [address], [address] [place] [address] Scheduled Procedures Name Priority Associated Diagnoses Date/Ti [...] Infection Onset Date Last Indicated Resolved Time PROFESSOR COMPUTER SCIENCE Comment:LT CHEST WALL TISSUE(08/12/24) 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
--- OUTSIDE RECORDS SUMMARY | 2024-10-10 15:07 | XMS_ITS | Encounter Summary ---
Author Organization [facility] Center[facility] Sys tem Address [id number] [address] [place] [address] Care Team Providers Care Crate Icer Name Role Phone Amy Collier ABSORBER OPERATOR-LAMINATION SPINNER Primary Care Provider + Encounter Details Date Type Department Care Team (Late st Contact Info) Description 09/01/2023 Orders Only [facility] Internal Medicine - Family Medicine [address] [place] [phone] Ref Prov, [place] [address] Social History Tobacco Use Types Packs/Day Years [...] Recorded Do you need help finding a [facility] career center and/or a [...] Description 10/12/2024 5:00 PM EDT Hospital En[facility] - Surgery [address] [place] [address] Jhon Rosado MD [address], [address] [place] [address] 10/12/2024 5:00 PM EDT - 10/12/2024 6:15 PM EDT Surgery [facility] - Surgery [address] [place] [address] Jhon Rosado MD [address], [address] [place] [address] DEBRIDEMENT BREAST 10/26/2024 8:30 AM EDT Telephone Visit [facility] Gynecology Oncology, Department of [facility] [address] [facility] [address] [place] [address] Raymond Sepulveda MD [address] [facility], [address] [place] [address] Scheduled Procedures Name Priority Associated Diagnoses Date/Ti [...] Infection Onset Date Last Indicated Resolved Time PINSETTER MECHANIC HELPER Comment:LT CHEST WALL TISSUE(08/12/24) 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
--- OUTSIDE RECORDS SUMMARY | 2024-10-10 15:08 | XMS_ITS ---
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
--- OUTSIDE RECORDS SUMMARY | 2024-10-10 15:08 | XMS_ITS | Encounter Summary ---
Author Organization [facility] Address [facility] [place] [address] Care Team Providers Care Homicide Investigator Name Role Phone Carolina Munguia APRN Unavailable [phone] Jessica Hope MD Unavailable [phone] Lynda Manuel BLADE BENDER FURNACE TENDER Primary Care Provider [phone] Shereen Smallwood PA-C Unavailable [phone] Radha Martinez RN Unavailable Amy Collier NP Primary Care Provider [phone] Source Comments In the event this information is protected by the Federal Confidentiality of Alcohol and Drug AbusePatient Records regulations: The Federal rules restrict any use of the information to criminally investigate or prosecute any alcohol or drug abuse patient.[facility] Reason for Referral * MRI/CT (Routine) - Pending Review Specialty Diagnoses / Procedures Referred By Jose olmedo Referred To Contact MR IMAGING Diagnoses Secondary malignant neoplasm of brain (HCC) Procedures MRI BRAIN WO/W IVCON MRI BRAIN BRAIN STEM W/O W/CONTRAST MATERIAL Carlos Mccain DO, PhD [address] [facility] [facility] [address] [place] [address] Phone: tel: fax: [place] [address] Referral ID Status Reason Start Date Expiration Date Visits Requested Visits Authorized [id number] Pending Review Auto-Generat ed Referral 09/01/2024 10/01/2025 1 1 * MRI/CT (Routine) - Closed Specialty Diagnoses / Procedures Referred By Jose t Referred To Contact MR IMAGING Diagnoses Secondary malignant neoplasm of brain (HCC) Procedures MRI BRAIN LOCALIZATION W IVCON MAGNETIC RESONANCE ELASTOGRAPHY Carlos Mccain DO, PhD [address] [place] [address] Phone: tel: fax: [place] [address] Referral ID Status Reason Start Date Expiration Date V isits Requested Visits Authorized [id number] Closed Auto-Generate d Referral 09/05/2024 10/20/2024 1 1 Encounter Details Date Type Department Care Team (Late st Contact Info) Description 09/01/2024 Cure Form [facility] [address] [place] [address] Carlos Mccain DO, PhD [address] [place] [address] Secondary malignant neoplasm of brain (HCC) (Primary Dx) Social History Tobacco Use Types Packs/Day Years Used Date Smoking Tobacco: Never Passive Smoke Exposure: Never Smokeless Tobacco: Never Alcohol Use Standard Drinks/Week Comments Not Currently 0 (1 standard drink = 0.6 oz pur e alcohol) Occasional wine [employer] Utilities Answer Date Recorded In the past 12 months has e [employer], gas, oil, or water [employer] threatened to shut off services in your [...] any time in the past 12 m ont, were you homeless or living in a skilled nursing (including now)? No 08/29/2024 Area Deprivation Index Answer Date Milton rded National Score (1-100), lower number is lower ri sk 82 07/21/2024 State Score (1-10), lower number is lower risk 7 07/21/2024 Data from: https://www.neighborhoodatlas.medicine.[facility].edu/. Last address used for calculation [address] [...] AM EDT Appointment [facility] [place] [address] [facility] [place] [address] With Perfusion 12/01/2024 2:00 PM EDT [facility] [address] [place] [address] Carlos Mccain DO, PhD [address] [place] [address] Established patient Visit with Dr. Mccain for MRI review and follow up Scheduled Orders Name Type Priority Associated Diagnoses Orde r Schedule MRI BRAIN WO/W IVCON Radiology Routine Secondary malignant neoplasm of brain (HCC) 1 Occurrences starting 09/01/2024 until 10/01/2025 documented as of this encounter Results * MRI BRAIN LOCALIZATION W IVCON (09/07/2024 [...] an incidental meningioma. No new enhancing lesion. General Freight Agent: PSCB Transcribe Date/Time: Sep 07 2024 8:44A Dictated [...] basal cisterns are patent. Procedure Note Provider, [facility] - 09/07/2024 * * *Final Report* * [...] an incidental meningioma. No new enhancing lesion. 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 [place] [address] 12/04/23 Jessica Hope MD [address] [place] [address] Referring Hematology/Oncology 06/14/24 Shereen Smallwood PA-C [address] [facility] [address] [place] [address] [facility] Referring Orthopedics 06/15/24 [place] [address] [place] [address] Specialty Baker Chef Hematology/Oncology 07/31/24 documented as of this encounter
--- OUTSIDE RECORDS SUMMARY | 2024-10-10 15:08 | XMS_ITS | Encounter Summary ---
Author Organization [employer] Address [id number] [address] [place] [address] Care Team Providers Care Ophthalmic Medical Technician Name Role Phone Amy Collier PRINTING SCREEN ASSEMBLER-GANG DRILL PRESS OPERATOR Primary Care Provider + Encounter Details Date Type Department Care Team (Late st Contact Info) Description 08/24/2024 Telephone [facility] Internal Medicine - Family Medicine [address] [place] [address] Kodi Monteiro CMA Social History Tobacco Use Types Packs/Day Years Used Date Smoking Tobacco: Never Passive Smoke Exposure: Past Smokeless Tobacco: Never Alcohol Use Standard Drinks/Week Comments Not Currently 0 (1 standard drink = 0.6 oz pur e alcohol) [facility] Utilities Answer Date Recorded In the past 12 months has [employer] electric, gas, oil, or water company [...] Answer Date Recorded Total Score 0 08/10/2024 [facility] of Occupat ional Health - Occupational Stress [...] AM EDT Dr No Urena Pharmacist at [facility] called and would like to have a discussion about this pt. Her Lab results indicate some medications need to be addressed. Her Phone number to talk directly to her is [phone] documented in this encounter Plan of Treatment Upcoming Encounters Date Type Department Care Team (Late st Contact Info) Description 10/12/2024 5:00 PM EDT Hospital Encounter [facility] - Surgery [address] [place] [address] Jhon Rosado MD [address], [address] [place] [address] 10/12/2024 5:00 PM EDT - 10/12/2024 6:15 PM EDT Surgery [facility] - Surgery [address] [place] [address] Jhon Rosado MD [address], [address] [place] [address] DEBRIDEMENT BREAST 10/26/2024 8:30 AM EDT Telephone Visit [facility] Gynecology Oncology, A Department of [address] [place] [address] Raymond Sepulveda MD [address] [facility], [address] [place] [address] Scheduled Procedures Name Priority Associated Diagnoses Date/Ti me DEBRIDEMENT BREAST BREAST WOUND LEFT 10/12/2024 5:00 PM EDT documented as of this encounter Goals Goal Patient Goal Type Associated Problems Recent Progress Patient-Stated? 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
--- OUTSIDE RECORDS SUMMARY | 2024-10-10 15:08 | XMS_ITS | Encounter Summary ---
Author Organization [employer] Address [id number] [address] [place] [address] Care Team Providers Care Tower Loader Operator Name Role Phone Amy Collier NEWS ANALYST-RN PEDIATRIC Primary Care Provider + Encounter Details Date Type Department Care Team (Late st Contact Info) Description 03/10/2023 [facility]phone [facility] [address] [place] [address] Nat Javed CMA Social History [...] How often do you attend chur or sikh services? More than 4 times [...] Answer Date Recorded Total Score 0 03/07/2022 [facility] of Occupat ional Health - [...] Recorded Do you need help finding a [facility] career center and/or a training [...] diagnostic mammogram and US right breast to [facility] - she can call to get that set up today. Herresult was cut off of the right breast but from what I can see they found some lymph enlargement and mass to right breast. Can you please call [facility] and ask them to fax the results of these tests as soon as they are read. Her abnormal mammogram was done 03/06 and we just got the result today. documented in this encounter Plan of Treatment Upcoming Encounters Date Type Department Care Team (Late st Contact Info) Description 10/12/2024 5:00 PM EDT Hospital Encounter [facility] - Surgery [address] [place] [address] Jhon Rosado MD [address], [facility] [address] [place] [address] 10/12/2024 5:00 PM EDT - 10/12/2024 6:15 PM EDT Surgery [facility] - Surgery [address] [place] [address] Jhon Rosado MD [address], [facility] [address] [place] [address] DEBRIDEMENT BREAST 10/26/2024 8:30 AM EDT Telephone Visit [facility] Oncology, A Department of [address] [place] [address] Raymond Sepulveda MD 5[address] [facility], [address] [place] [address] Scheduled Procedures Name Priority Associated Diagnoses Date/Ti me DEBRIDEMENT BREAST BREAST WOUND LEFT 10/12/2024 5:00 PM EDT documented as of this encounter Visit Diagnoses Not on filedocumented in this encounter Additional Health Concerns Infection Onset Date Last Indicated Resolved Time AERIAL SPRAYER Comment:LT CHEST WALL TISSUE(08/12/24) 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
--- OUTSIDE RECORDS SUMMARY | 2024-10-10 15:08 | XMS_ITS | Encounter Summary ---
Author Organization [facility] Address [facility] [place] [address] Care Team Providers Care Art Editor Name Role Phone Nilda Carolina RICHTER Unavailable [phone] Jessica Hope MD Unavailable [phone] Lynda Manuel ADA ACCOMMODATION CONSULTANT Primary Care Provider [phone] Shereen Smallwood PA-C Unavailable [phone] Radha Martinez RN Unavailable Amy Collier RENT COLLECTOR Primary Care Provider [phone] Source Comments In the event this information is protected by the Federal Confidentiality of Alcohol and Drug AbusePatient Records regulations: The Federal rules restrict any use of the information to criminally investigate or prosecute any alcohol or drug abuse patient.[facility] Encounter Details Date Type Department Care Team (Late st Contact Info) Description 09/01/2024 Cure Form [facility] [address] [place] [id number] Carlos Mccain DO, PhD [address] [facility] [address] [place] [address] Social History Tobacco Use Types Packs/Day Years Used Date Smoking Tobacco: Never Passive Smoke Exposure: Never Smokeless Tobacco: Never Alcohol Use Standard Drinks/Week Comments Not Currently 0 (1 standard drink = 0.6 oz pur e alcohol) Occasional wine [facility] Utilities Answer Date Recorded In the [...] time in the past 12 m [facility], were you homeless or living in a retirement (including now)? No 08/29/2024 Area Deprivation Index Answer Date Milton rded National Score (1-100), lower number is lower ri sk 82 07/21/2024 State Score (1-10), lower number is lower risk 7 07/21/2024 Data from: https://www.neighborhoodatlas.medicine.[facility].edu/. Last address used for calculation [address] [...] EDT Appointment [facility] [place] [address] [facility] [address] [place] [address] With Perfusion 12/01/2024 2:00 PM EDT [facility] Tumor Center [address] [place] [address] Carlos Mccain DO, PhD [address] [facility] [address] [place], [place] [phone] Established patient Visit with Dr. Mccain for MRI review and follow up documented as of this encounter Visit Diagnoses Not on filedocumented in this encounter Care Teams Art Editor Relationship Specialty Start Date End Date Lynda Manuel CNP [address] [place] [address] PCP - General Family Medicine 06/14/24 09/26/24 Amy Collier NP [address] [place] [address] PCP - General Family Medicine 09/27/24 Carolina Munguia APRN [address] [facility] [address] [address] 12/04/23 Jessica Hope MD [address] [place] [address] Referring Hematology/Oncology 06/14/24 Shereen Smallwood PA-C [address] [facility] [address] [place] [address] [facility] Referring Orthopedics 06/15/24 [place] [address] [place] [address] Specialty Supervisor White Sugar Hematology/Oncology 07/31/24 documented as of this encounter
--- OUTSIDE RECORDS SUMMARY | 2024-10-10 15:08 | XMS_ITS | Encounter Summary ---
Author Organization [facility] [employer] Address [id number] [address] [place] [address] Care Team Providers Care Mortgage Advisor Name Role Phone Amy Collier TARE WEIGHER-ROTARY SLICING MACHINE OPERATOR Primary Care Provider + Encounter Details Date Type Department Care Team (Late st Contact Info) Description 04/27/2023 Orders Only [facility] Internal Medicine - Family Medicine [address] [place] [address] External, Scanning Provider Social History [...] How often do you attend chur or sabianist services? More than 4 times per year [...] Description 10/12/2024 5:00 PM EDT Hospital Encounter [facility] - Surgery [address] [place] [address] Jhon Rosado MD [address], [facility] [address] [place] [address] 10/12/2024 5:00 PM EDT - 10/12/2024 6:15 PM EDT Surgery [facility] - Surgery [address] [place] [address] Jhon Rosado MD [address], [facility] [address] [place] [address] DEBRIDEMENT BREAST 10/26/2024 8:30 AM EDT Telephone Visit [facility] Gy[facility]cology Oncology, Department of [address] [facility] [address] [place] [address] Raymond Sepulveda MD [address] [place] [address], [address] [place] [address] Scheduled Procedures Name Priority Associated [...] Infection Onset Date Last Indicated Resolved Time BREASTER Comment:LT CHEST WALL TISSUE(08/12/24) 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
--- OUTSIDE RECORDS SUMMARY | 2024-10-10 15:08 | XMS_ITS | Encounter Summary ---
Author Organization [employer] Address [id number] [address] [place] [address] Care Team Providers Care Lamination Operator Name Role Phone Amy Collier MDS NURSE-CIVIL ENGINEER HELPER Primary Care Provider + Encounter Details Date Type Department Care Team (Late st Contact Info) Description 04/07/2024 Telephone [facility] Plastic [facility] [address] [facility] [address] [place] [address] Viviane Lopez CMA Social History Tobacco Use Types Packs/Day Years Used Date Smoking Tobacco: Never Passive Smoke Exposure: Past Smokeless Tobacco: Never Alcohol Use Standard Drinks/Week Comments Yes 0 (1 standard drink = 0.6 oz pur e alcohol) Socially [facility] Utilities Answer Date Recorded In the past 12 months has [employer] electric, gas, oil, or water [employer] threatened to shut off services in your [...] Answer Date Recorded Total Score 2 03/30/2024 [facility] [place] of Occupat ional Health - Occupational Stress [...] 5:00 PM EDT Hospital Encounter [facility] - Surgery [address] [place] [address] Jhon Rosado MD [address], [facility] [address] [place] [address] 10/12/2024 5:00 PM EDT - 10/12/2024 6:15 PM EDT Surgery [facility] - Surgery [address] [place] [address] Jhon Roasdo MD [address], [facility] [address] [place] [address] DEBRIDEMENT BREAST 10/26/2024 8:30 AM EDT Telephone Visit [facility] On[facility], A Department of [address] [place] [address] Raymond Sepulveda MD 5308 [facility], [address] [place] [address] Scheduled Procedures Name Priority Associated Diagnoses Date/Ti me DEBRIDEMENT BREAST BREAST WOUND LEFT 10/12/2024 5:00 PM EDT documented as of this encounter Visit Diagnoses Not on filedocumented in this encounter Additional Health Concerns Infection Onset Date Last Indicated Resolved Time SHUTTLE OPERATOR Comment:LT CHEST WALL TISSUE(08/12/24) 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
--- OUTSIDE RECORDS SUMMARY | 2024-10-10 15:08 | XMS_ITS | Encounter Summary ---
Author Organization [facility] tem Address [id number] [address] [place] [address] Care Team Providers Care Finance Assistant Name Role Phone Amy Collier DEVELOPER PROGRAMMER ANALYST-ORACLE R12 DEVELOPER Primary Care Provider + Encounter Details Date Type Department Care Team (Late st Contact Info) Description 05/02/2024 Orders Only [facility] [address] [place] [phone] Rossy Ng RN Social History Tobacco Use Types Packs/Day Years Used Date Smoking Tobacco: Never Passive Smoke Exposure: Past Smokeless Tobacco: Never Alcohol Use Standard Drinks/Week Comments Yes 0 (1 standard drink = 0.6 oz pur e alcohol) Socially [employer] Utilities Answer Date Recorded In the past [...] Answer Date Recorded Total Score 2 03/30/2024 [facility] [...] Description 10/12/2024 5:00 PM EDT Hospital Encounter [facility] - Surgery [address] [place] [address] Jhon Rosado MD [address], [facility] [address] [place] [phone] 10/12/2024 5:00 PM EDT - 10/12/2024 6:15 PM EDT Surgery [facility] - Surgery [address] [place] [phone] Jhon Rosado MD [address], [facility] [address] [place] [phone] DEBRIDEMENT BREAST 10/26/2024 8:30 AM EDT Telephone Visit [facility] Gynecology Oncology, A Department of [place] [address] [facility] [address] [place] [phone] [place] [address] [place] [address], [address] [place] [address] Scheduled Procedures Name Priority Associated Diagnoses Date/Ti me DEBRIDEMENT BREAST BREAST WOUND LEFT 10/12/2024 5:00 PM EDT documented as of this encounter Goals Goal Patient Goal Type Associated Problems Recent Progress Patient-Stated? 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
--- OUTSIDE RECORDS SUMMARY | 2024-10-10 15:08 | XMS_ITS | Clinical Summary ---
Author Organization [employer] tem Address [id number] [address] [id number] Care Team Providers Care Software Configuration Analyst Name Role Phone Amy Collier [employer] FABRICATOR-BEHAVIOR SUPPORT SPECIALIST Primary Care Provider + Allergies Active Allergy Reactions Criticality Noted Date Comments Adhesive Rash Low 11/27/2021 Ceftaroline Fosamil Fever Low 06/11/2024 Daptomycin Flushing Low 11/28/2023 Doxycycline Rash Low 12/09/2023 Meperidine Facial Swelling Medium 04/13/2021 Tigecycline Rash,Vomiting Low 12/07/2023 Vancomycin Other (See Comments) Medium 03/21/2024 Acute Kidney Injury Medications ELIQUIS 5 mg tabletIndicati ons:deep venous thrombosis [...] mouth in the morning. 90 tablet 3 12/10/19 24 Active CLOFAZIMINE, BULK, MISC Take 100 mg by mouth in the morning. Capsule for mycobacterial infection. Active pyridoxine, vitamin B6, (B-6) 50 mg tablet Take 1 tablet (50 mg total) by mouth in the morning. 03/28/19 25 Active gabapentin (NEURONTIN) 300 mg capsuleIndicat ions:neuropath ic pain Take 1 capsule (300 mg total) by mouth in the morning and at bedtime Indications: neuropathic pain. Active prochlorperazi ne (COMPAZINE) 10 mg tablet 04/25/19 25 Active omadacycline 150 mg tablet Take 300 mg [...] ATTILA. 500 mL 5 08/19/19 25 Active acyclovir (ZOVIRAX) 400 mg tablet Take 1 tablet (400 mg total) by mouth in the morning and 1 tablet (400 mg total) before bedtime. 09/02/19 25 Active spironolactone (ALDACTONE) 25 mg tablet Take 0.5 tablets (12.5 mg total) by mouth in the morning. 45 tablet 1 09/21/19 25 Active famotidine (PEPCID) 20 mg tablet Take 1 tablet (20 mg total) by mouth in the morning. 09/09/19 25 Active sertraline (ZOLOFT) 50 mg tabletIndicati ons:Reactive depression,Anx iety Take 1 tablet (50 mg total) by mouth in the morning. 30 tablet 1 09/24/19 25 Active cyclobenzaprin e (FLEXERIL) 10 mg tablet TAKE ONE TABLET BY MOUTH ONCE DAILY IN THE EVENING 30 tablet 11 04/28/19 24 025 Discontinu ed(Patient Stopped On Own) hydrOXYzine (ATARAX) 25 mg tablet Take 1 tablet (25 mg total) by mouth 3 (three) times a day as needed for itching. 60 tablet 1 05/13/19 25 025 Discontinu ed(Patient Stopped On Own) spironolactone (ALDACTONE) 25 mg tablet Take 0.5 tablets (12.5 mg total) by mouth in the morning. 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 ([facility]) (Primary Dx) 10/07/2024 Telephone [facility] [address] [place] [phone] Jhon Rosado MD 10/05/2024 1:30 PM EDT Office Visit [facility] [address] [place] [phone] Marisela Davila [employer] FABRICATOR-BEHAVIOR SUPPORT SPECIALIST Breast wound, left, sequela (Primary Dx); Infection of deep incisional surgical site after procedure, subsequent encounter 10/05/2024 Travel 09/23/2024 Orders Only [facility] - Family Medicine [address] [place] [address] Amy Collier APRN-ESPERANZA Reactive depression (Primary Dx); Anxiety 09/22/2024 3:15 PM EDT Office Visit [facility] [address] [place] [phone] Jhon Rosado MD 09/22/2024 Travel 09/20/2024 Orders Only [facility] - Family Medicine [address] [place] [address] Amy Collier, [employer] FABRICATOR-BEHAVIOR SUPPORT SPECIALIST 09/20/2024 Telephone [facility] - Family Medicine [address] [place] [address] Susan Horton, [facility] 09/19/2024 Refill [facility] [address] [place] [address] Amy Collier, [employer] FABRICATOR-BEHAVIOR SUPPORT SPECIALIST 09/16/2024 Telephone [facility] [address] [facility] [place] [address] Irvin Apodaca MA 09/08/2024 9:45 AM EDT Office Visit [facility] [address] [facility] [place] [address] Shereen Smallwood, DAYTONC Breast wound, left, sequela (Primary Dx); Infection of deep incisional surgical site after procedure, subsequent encounter; Malignant neoplasm of lower-inner quadrant of right breast of female, estrogen receptor positive (CMS-HCC); Mycobacterium abscessus infection; S/P breast reconstruction, bilateral 09/08/2024 Travel 09/05/2024 Telephone [facility] [address] [facility] [place] [address] Dee Dee Buck RN 08/31/2024 Telephone [facility] [address] [facility] [place] [address] Jhon Rosado MD 08/25/2024 Orders Only [facility] - Family Medicine [address] [place] [address] Amy Collier, [employer] FABRICATOR-BEHAVIOR SUPPORT SPECIALIST 08/24/2024 Telephone [facility] - Family Medicine [address] [place] [address] Kodi Monteiro, [facility] 08/22/2024 Telephone [facility] [address] [facility] [address] [place] [address] Viviane Lopez CMA 08/18/2024 3:30 PM EDT Office Visit [facility] [address] [facility] [address] [facility] [place] [address] Shereen Smallwood, TATI-C Breast wound, left, sequela (Primary Dx); Complicated wound infection 08/18/2024 Travel 08/12/2024 10:21 AM EDT [address] [facility] [address] [facility] [place] [address] Vaibhav Nicholson MD [facility], [facility] 08/12/2024 9:10 AM EDT - 08/12/2024 10:[address] [facility] Surgery [address] [facility] [place] [address] Jhon Rosado MD DEBRIDEMENT LEFT CHEST WALL WOUND 08/12/2024 6:02 AM EDT - 08/12/2024 12:17 PM EDT Hospital Encounter [facility] Surgery [address] [facility] [place] [address] Jhon Rosado MD Discharge Disposition: Home 08/12/2024 Telephone [facility] [address] [facility] [address] [place] [address] Jhon Rosado MD 08/10/2024 3:30 PM EDT Office Visit [facility] - Family Medicine [address] [place] [address] Dhruv Ortiz DO Mycobacterium abscessus infection (Primary Dx); Malignant neoplasm of lower-inner quadrant of right breast of female, estrogen receptor positive ([facility]) 08/10/2024 10:00 AM EDT Support Visit [facility] On [address] [address] 08/09/2024 Telephone [facility] [address] [facility] [address] [place] [address] Jhon Rosado MD 08/08/2024 9:00 AM EDT Office Visit [facility] [address] [facility] [address] [place] [address] Shereen Smallwood PA-C Breast wound, left, sequela (Primary Dx); Complicated wound infection 08/08/2024 Travel 08/04/2024 Orders Only [facility] [address] [facility] [address] [place] [address] Shereen Smallwood PA-C 08/03/2024 9:00 AM EDT Office Visit [facility] [address] [facility] [address] [place] [address] Shereen Smallwood PA-C Breast wound, left, sequela (Primary Dx); Mycobacterium abscessus infection; Complicated wound infection 08/03/2024 Travel 08/02/2024 Telephone [facility] [address] [place] [address] Joelle Betancourt, life science taxonomist Of Care 08/02/2024 Telephone [facility] - Family Medicine [address] [place] [address] Mela Berrios, OC 08/02/2024 Telephone [facility] [address] [facility] [address] [place] [address] Viviane Lopez CMA 07/27/2024 2:45 PM EDT - 07/27/2024 4:15 PM EDT Surgery [facility] - Surgery [address] [facility] [place] [address] Jhon Rosado MD DEBRIDEMENT BREAST 07/27/2024 2:38 PM EDT Anesthesia Event [facility] - Surgery [address] [place] [address] Sonal Roberts MD 07/27/2024 12:58 PM EDT - 07/29/2024 3:31 PM EDT Hospital Encounter [facility] - 7 Oncology/Stroke [address] [facility] [place] [address] Jhon Rosado MD Complicated wound infection (Primary Dx); Breast wound, left, sequela Discharge Disposition: Home 07/27/2024 8:30 AM EDT Telephone Visit [facility] Gynecology Oncology, A Department of [facility] [address] [email or web address] [address] [place] [address] Raymond Sepulveda MD Pelvic mass in female (Primary Dx) 07/27/2024 Travel 07/18/2024 [facility] [address] [email or web address] [address] [place] [address] Jhon Rosado MD 07/15/2024 9:00 AM EDT [facility] On [address] [address] 07/14/2024 8:40 AM EDT [facility] [address] [facility] [place] [address] Amy Collier, [employer] FABRICATOR-BEHAVIOR SUPPORT SPECIALIST Malignant neoplasm of lower-inner quadrant of right breast of female, estrogen receptor positive (CMS-HCC) (Primary Dx); Mycobacterium abscessus infection; Essential hypertension; Acute deep vein thrombosis (DVT) of calf muscle vein of left lower extremity (CMS-HCC); S/P right heart catheterization 07/13/2024 Telephone [facility] [address] [facility] [place] [address] Jhon Rosado MD 07/11/2024 2:00 PM EDT Office Visit [facility] [address] [place] [address] Marisela Davila, [employer] FABRICATOR-BEHAVIOR SUPPORT SPECIALIST Encounter for postoperative care (Primary Dx); Breast wound, left, sequela; S/P breast reconstruction, bilateral; Mycobacterium abscessus infection 07/11/2024 12:24 PM EDT - 07/11/2024 4:12 PM EDT Hospital Encounter [facility] - Interventional Radiology [address] [place] [address] Guillaume Curiel MD Begeman, Garett A, MD Liver lesion Discharge Disposition: Home 07/11/2024 [facility]phone [facility] [address] [facility] [[email or web address] [address] [facility] [place] [address] Marisela Davila [employer] FABRICATOR-BEHAVIOR SUPPORT SPECIALIST 07/11/2024 Travel from Last 3 Months Immunizations Immunization Administration [...] = 0.6 oz pur e alcohol) [facility] Utilities Answer Date Recorded In the [...] Answer Date Recorded Total Score 0 08/10/2024 [facility] Occup[facility] ional [facility] - Occupational Stress [...] 15 10/05/2024 1:28 PM EDT Oxygen Saturation 100% 08/12/2024 12:00 PM EDT Inhaled Oxygen Concentration - - Weight 90.8 kg (200 lb 3.2 oz) 09/22/2024 3:25 P M EDT Height 177.8 cm (5' 10 ) 09/22/2024 3:25 PM EDT Body Mass Index 28.73 09/22/2024 3:25 PM EDT Plan of Treatment Upcoming Encounters Date Type Department Care Team (Late st Contact Info) Description 10/12/2024 5:00 PM EDT Hospital Encounter [facility] Surgery [address] [place] [phone] Jhon Rosado MD [address], [facility] [[email or web address]] [address] [place] [phone] 10/12/2024 5:00 PM EDT - 10/12/2024 6:15 PM EDT Surgery [facility] Surgery [address] [place] [address] Jhon Rosado MD [address], [facility] [[email or web address]] [address] [place] [address] DEBRIDEMENT BREAST 10/26/2024 8:30 AM EDT Telephone Visit [facility] Gynecology Oncology, A Department of [address] [facility] [address] [place] [address] Raymond Sepulveda MD [address] [place] [address], [address] [place] [address] Scheduled Procedures Name Priority Associated Diagnoses Date/Ti me DEBRIDEMENT BREAST BREAST WOUND LEFT 10/12/2024 5:00 PM EDT Health Maintenance Due Date Last Done Comments Adult BMI Follow Up Plan 1988 Zoster (Shingles) Vaccine (1 of 2) 1989 COVID-19 Vaccine (2023-2 5 season) 2023 12/06/2020, 12/06/2020, 12/06/2020, Additional history exists Influenza Vaccine 10/31/2024 11/20/2019, , 12/13/2018, Additional history exists Depression Screening 08/10/2025 08/10/2024 Adult BMI Screening 09/22/2025 09/22/2024 Tobacco Screening 10/05/2025 10/05/2024 DTaP,Tdap and Td Vaccines (2 - Td or Tdap) 07/08/2027 07/07/2017 Pap Smear Discontinued 06/01/2024, 04/0 03/2023, 12/27/2021 Goals Goal Patient Goal Type Associated Problems Recent Progress Patient-Stated? Author return home General Yes Mariah Gonsalez, RN Note: Evaluation of progress towards goal: progressing, patient will return home at discharge/follow up [facility] Wound care clinic Medical Devices Implanted Type Area Transcription Specialist Device Identifier Shelf Expiration Date Model / Serial / Lot Steam Turbine Operator Tiss [id number] Brst [id number] Txtr Intgr Port Allox2 - [id number] - [id number] Implanted:Qty: 1 on 10/28/2023 by Jhon Rosado MD at [facility] Other Implant Left: Breast [employer] 11/11/2025 ALLOX2-FH 14E / [id number] / NA Steam Turbine Operator Tiss [id number] Brst 480-575cc Txtr Intgr Port Allox2 - [id number] - [id number] Implanted:Qty: 1 on 10/28/2023 by Christy He MD at [facility] Other Implant Right: Breast [employer] 11/20/2025 ALLOX2-FH 14E / [id number] / NA Procedures Procedure Name Priority [...] / RESULTS Routine 08/08/2024 3:30 PM EDT [facility] GENERIC ORDER Routine 07/29/2024 2: 53 PM [...] & INR STAT 07/11/2024 12:53 PM EDT from Last 3 Months Results * (ABNORMAL) Tissue culture includes gram stain (08/12/2024 10:40 AM EDT) CULTURE RESULTS Rare Carbapenem Resistant Pseudomonas aeruginosa(A) 08/16/2024 9:32 AM EDT [facility] GRAM STAIN 0 White Blood Cells/LPF 08/16/2024 9:32 AM EDT [facility] GRAM STAIN 0 Squamous Epithelial Cells/LPF 08/16/2024 9:32 AM EDT [facility] GRAM STAIN No organisms seen 08/16/2024 9:32 AM EDT [facility] Tissue (Chest Wall, Left) 08/12/2024 10:40 AM EDT 08/12/2024 11:31 AM EDT Comment:Pre-op diagnosis: LEFT AXILLA WOUND Narrative [facility] - 08/16/2024 9:32 AM EDT [...] KPC (CARBAPENEMASE) Negative Carbapenem Resistant Pseudomonas aeruginosa [id number] (CARBAPENEMASE) Negative Carbapenem Resistant Pseudomonas aeruginosa VIM (CARBAPENEMASE) Negative Carbapenem Resistant Pseudomonas aeruginosa IMP (CARBAPENEMASE) Negative Carbapenem Resistant Pseudomonas aeruginosa NDM (CARBAPENEMASE) Negative Comment:Carbapenem Resistant Organism (OPERATOR). The CARBA5 test only detects the 5 most prevalent carbapenemase producing mechanisms in the [place] Other carbapenemase producing mechanisms not detected by this test are rare. us Jhon Rosado MD MICROBIOLOGY - GENERA L ORDERABLES Final Result [facility] [address] [place] [address], * (ABNORMAL) Fungal culture includes fungal smear (08/12/2024 10:40 AM EDT) CULTURE RESULTS Mycobacterium abscessus(A) 09/07/2024 10:42 AM EDT [facility] FUNGAL SMEAR No fungal elements seen 09/07/2024 10:42 AM EDT [facility] FUNGAL SMEAR On Direct Smear 025 10:42 AM EDT [facility] Tissue (Chest Wall, Left) 08/12/2024 10:40 AM EDT 08/12/2024 11:31 AM EDT Comment:Pre-op diagnosis: LEFT AXILLA WOUND Narrative [facility] - 09/07/2024 10:42 AM EDT Contact microbiology if further workup is required for M.abscessus. No fungus isolated after 4 weeks. us Jhon Rosado MD MICROBIOLOGY - GENERA L ORDERABLES Final Result [facility] [address] [place] [address], [place] [phone] * Anaerobic culture (08/12/2024 10:40 AM EDT) CULTURE RESULTS NO GROWTH 5 DAYS 08/17/2024 7:01 AM EDT [facility] Tissue (Chest Wall, Left) 08/12/2024 10:40 AM EDT 08/12/2024 11:31 AM EDT Comment:Pre-op diagnosis: LEFT AXILLA WOUND Jhon Rosado MD MICROBIOLOGY - GENERA L ORDERABLES Final Result Performing Organization Address City/[facility] Co de Phone Number [facility] [address] [place] [address], [place] [phone] * Send Out Test (08/11/2024 3:03 PM EDT) Only the most recent of2 resultswithin the time period is included. TEST NAME 08/14/2024 7:50 AM EDT GENERIC RESULTING AGENCY SPECIMEN 08/14/2024 7:50 AM EDT GENERIC RESULTING AGENCY SENT TO 08/14/2024 7:50 AM EDT GENERIC RESULTING AGENCY TEST RESULT 08/14/2024 7:50 AM EDT GENERIC RESULTING AGENCY Tissue Left breast structure / Unknown 08/11/2024 3:03 PM EDT 08/11/2024 6:05 PM EDT Herman York DO LAB ORDERABLES Final Result Performing Organization Address [facility] Co de Phone Number GENERIC RESULTING AGENCY * External Lab Orders / Results (08/08/2024 3:30 PM EDT) Aurelia Oneill MD LAB ORDERABLES Final Result * [facility] GENER[facility] ORDER (07/29/2024 2:53 PM EDT) TEST RESULT SEE COMMENTS 08/01/2024 4:29 PM EDT [employer] Comment: Test Result Flag Unit RefValue Amikacin, Peak, S 20.1 mcg/mL 20.0 - 35.0 Test Performed by: [facility] [address] [place] [address] Supervisor Telephone Answering Service: Colten Sosa Ph.D.; CLIA# [id number] Blood 07/29/2024 2:53 PM EDT 07/29/2024 3:09 PM EDT Jhon Rosado MD LAB BLOOD ORDERABLES Final Result [facility] [address] [place] [address], * Amikacin peak post (07/29/2024 2:53 PM EDT) [facility] LOOK Sent to [facility]. 07/29/2024 6:15 PM EDT [facility] Blood 07/29/2024 2:53 PM EDT 07/29/2024 3:09 PM EDT Jhon Rosado MD LAB BLOOD ORDERABLES Final Result Performing Organization Address City/[facility]/ZIP Co de Phone Number [facility] [address] [place] [address], [place] [phone] * (ABNORMAL) CBC auto differential (07/29/2024 8:40 AM EDT) Only the most recent of2 resultswithin the time period is included. [facility] WBC 5.9 4 - 11 x10E9/L 07/29/2024 9:15 AM [facility] RBC Count 3.02(L) 3.8 - 5.2 X10E12/L 07/29/2024 9:15 AM [facility] Hemoglobin 9.9(L) 11.7 - 15.5 g/dL 07/29/2024 9:15 AM [facility] Hematocrit 27.6(L) 35 - 47 % 07/29/2024 9:15 AM [facility] MCV 92 80 - 100 fL 07/29/2024 9:15 AM [facility] MCH 32.8 27 - 34 pg 07/29/2024 9:15 AM [facility] MCHC 35.8 32 - 36 g/dL 07/29/2024 9:15 AM [facility] RDW 17.1(H) 11.5 - 15 % 07/29/2024 9:15 AM [facility] Platelet Count 200 150 - 450 X10E9/L 07/29/2024 9:15 AM [facility] MPV 6.9(L) 7 - 12 fL 07/29/2024 9:15 AM [facility] Neutrophils % 77.5 % 07/29/2024 9:15 AM [facility] Lymphocytes % 9.3 % 07/29/2024 9:15 AM [facility] Monocytes % 7.0 % 07/29/2024 9:15 AM [facility] Eosinophils % 5.4 % 07/29/2024 9:15 AM [facility] Basophils % 0.8 % 07/29/2024 9:15 AM [facility] Neutrophils Absolute (A) 4.6 1.5 - 6.6 10*3/uL 07/29/2024 9:15 AM [facility] Lymphocytes Absolute 0.6(L) 1.0 - 3.5 10*3/uL 07/29/2024 9:15 AM [facility] Monocytes Absolute 0.4 0.0 - 0.9 10*3/uL 07/29/2024 9:15 AM [facility] Eosinophils Absolute 0.3 0.0 - 0.4 10*3/uL 07/29/2024 9:15 AM [facility] Basophils Absolute 0.0 0.0 - 0.2 10*3/uL 07/29/2024 9:15 AM [facility] Differential Type AUTOMATED DIFFERENTIAL 07/29/2024 9:15 AM [facility] Blood Venous blood / Unknown 07/29/2024 8:40 AM EDT 07/29/2024 9:03 AM EDT us Shereen Smallwood PA-C LAB BLOOD ORDERABLES Fin al Result Performing Organization Address City/[facility]/ZIP Co de Phone Number [facility] [address] [place] [address], [place] * (ABNORMAL) Basic Metabolic Panel (07/29/2024 8:40 AM EDT) Only the most recent of2 resultswithin the time period is included. SODIUM 139 134 - 146 mmol/L 07/29/2024 10:01 AM [facility] POTASSIUM 4.0 3.5 - 5.0 mmol/L 07/29/2024 10:01 AM [facility] CHLORIDE 108 98 - 109 mmol/L 07/29/2024 10:01 AM [facility] CARBON DIOXIDE 27 22 - 32 mmol/L 07/29/2024 10:01 AM [facility] ANION GAP 4(L) 5 - 15 mmol/L 07/29/2024 10:01 AM [facility] BLOOD UREA NITROGEN 10 5 - 23 mg/dL 07/29/2024 10:01 AM [facility] CREATININE 0.77 0.40 - 1.00 mg/dL 07/29/2024 10:01 AM [facility] Comment:METHOD TRACEABLE TO IDMS STANDARD GLUCOSE 81 65 - 99 mg/dL 07/29/2024 10:01 AM [facility] CALCIUM 8.3(L) 8.5 - 10.5 mg/dL 07/29/2024 10:01 AM [facility] EGFR Non-Race Dependent >90 >=60 ml/min/1.7 3sq.m 07/29/2024 10:01 AM [facility] Comment: Reported eGFR is based on the CKD-EPI 2020 equation that does not use a race coefficient. Blood Venous blood / Unknown 07/29/2024 8:40 AM EDT 07/29/2024 9:03 AM EDT us Shereen Smallwood PA-C LAB BLOOD ORDERABLES Fin al Result Performing Organization Address City/[facility]/ZIP Co de Phone Number [facility] [address] [place] [address], [place] * EKG (07/28/2024 3:26 PM EDT) 07/28/2024 3:26 PM EDT Narrative [facility] - 07/28/2024 6:36 PM EDT us Lynda Kulkarni [employer] FABRICATOR-BEHAVIOR SUPPORT SPECIALIST ECG ORDERABLES Final Resul t Performing Organization Address City/[facility]/ZIP Co de Phone Number TRACEISSACSTERVLUCIA * (ABNORMAL) Iron and TIBC (07/28/2024 6:14 AM EDT) IRON 26(L) 50 - 170 ug/dL 07/28/2024 2:50 PM EDT [facility] TRANSFERRIN 193 168 - 336 mg/dL 07/28/2024 2:50 PM EDT [facility] IRON BINDING 270 250 - 425 ug/dL 07/28/2024 2:50 PM EDT [facility] IRON SATURATION 10(L) 15 - 50 % SATURATION 07/28/2024 2:50 PM EDT [facility] Blood Venous blood / Unknown Port / Unknown 07/28/2024 6:14 AM EDT 07/28/2024 6:20 AM EDT us Lynda Cayla RICHTER-BEHAVIOR SUPPORT SPECIALIST LAB BLOOD ORDERABLES Final Result Performing Organization Address [facility] de Phone Number [facility] [address] [place] [address], [place] [phone] * Prealbumin (07/28/2024 6:14 AM EDT) PREALBUMIN 19 18 - 45 mg/dL 07/28/2024 2:50 PM EDT [facility] Blood Venous blood / Unknown Port / Unknown 07/28/2024 6:14 AM EDT 07/28/2024 6:20 AM EDT us Shereen Smallwood PA-C LAB BLOOD ORDERABLES Fin al Result [facility] [address] [place] [address], * Folate (07/28/2024 6:14 AM EDT) FOLIC ACID 6.9 >5.8 ng/mL 07/28/2024 3:47 PM EDT [facility] Blood Venous blood / Unknown Port / Unknown 07/28/2024 6:14 AM EDT 07/28/2024 6:20 AM EDT Lynda Cayla RICHTER-BEHAVIOR SUPPORT SPECIALIST LAB BLOOD ORDERABLES Final Result [facility] [address] [place] [address], [place] [phone] * (ABNORMAL) Ferritin (07/28/2024 6:14 AM EDT) FERRITIN 374(H) 11 - 307 ng/mL 07/28/2024 11:50 AM EDT [facility] Blood Venous blood / Unknown Port / Unknown 07/28/2024 6:14 AM EDT 07/28/2024 6:20 AM EDT Lynda Kulkarni APRN-BEHAVIOR SUPPORT SPECIALIST LAB BLOOD ORDERABLES Final Result [facility] [address] [place] [address], [place] * (ABNORMAL) Vitamin B12 (07/28/2024 6:14 AM EDT) VITAMIN B12 984(H) 180 - 914 pg/mL 07/28/2024 3:48 PM EDT [facility] Blood Venous blood / Unknown Port / Unknown 07/28/2024 6:14 AM EDT 07/28/2024 6:20 AM EDT Lynda Cayla BRIGGSN-BEHAVIOR SUPPORT SPECIALIST LAB BLOOD ORDERABLES Final Result [facility] [address] [place] [address], * AFB culture concentrated includes AFB smear (07/27/2024 3:05 PM EDT) Only the most recent of2 resultswithin the time period is included. CULTURE RESULTS NO ACID FAST BACILLI ISOLATED IN 8 WEEKS 09/27/2024 10:51 AM EDT [facility] AFB SMEAR No Acid Fast Bacili (Concentrate d Smear) 09/27/2024 10:51 AM EDT [facility] Tissue Left breast structure / Unknown 07/27/2024 3:05 PM EDT 07/27/2024 3:30 PM EDT Comment:Pre-op diagnosis: LEFT BREAST WOUND Jhon Rosado MD MICROBIOLOGY - [facility] ORDERABLES Final Result Performing Organization Address City/[facility]/ZIP Co de Phone Number [facility] [address] [place] [address], * IR percutaneous biopsy liver (07/11/2024 2:56 [...] trained personnel. A total of 30 minutes jswm-nm-wtae moderate sedation was provided by Dr. Luz. [...] trained personnel. A total of 30 minutes fgko-tq-pvqbjoigpyot sedation was provided by Dr. Luz. Following [...] - 37 sec 07/11/2024 1:16 PM EDT [facility] Blood 07/11/2024 12:5 3 PM EDT 07/11/2024 12:56 PM EDT us Valdemar Luz MD LAB BLOOD ORDERABLES Final R esult Performing Organization Address City/[facility]/ZIP Co de Phone Number [facility] [address] [place] [address], * Protime & INR (07/11/2024 12:53 PM EDT) PROTIME 10.9 9.8 - 13.2 sec 07/11/2024 1:16 PM EDT [facility] INR 1.0 0.9 - 1.2 07/11/2024 1:16 PM EDT [facility] Blood 07/11/2024 12:5 3 PM EDT 07/11/2024 12:56 PM EDT us Valdemar Luz MD LAB BLOOD ORDERABLES Final R esult Performing Organization Address [facility] Co de Phone Number [facility] [address] [place] [address], * Platelet count (07/11/2024 12:53 PM EDT) Platelet Count 258 150 - 450 X10E9/L 07/11/2024 1:12 PM EDT [facility] MPV 7.1 7 - 12 fL 07/11/2024 1:12 PM EDT [facility] Blood 07/11/2024 12:5 3 PM EDT 07/11/2024 12:56 PM EDT us Valdemar Luz MD LAB BLOOD ORDERABLES Final R esult Performing Organization Address City/[facility]/ZIP Co de Phone Number [facility] [address] [place] [address], from Last 3 Months Additional Health Concerns Infection Onset Date Last Indicated OPERATOR Comment:LT CHEST WALL TISSUE(08/12/24) 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
--- OUTSIDE RECORDS SUMMARY | 2024-10-10 15:08 | XMS_ITS | Encounter Summary ---
Author Organization [employer] Address [id number] [address] [place] [address] Care Team Providers Care Small Package And Bundle Sorter Clerk Name Role Phone Amy Collier AIR TRAFFIC CONTROLLER-WELT EDGE ROUNDER Primary Care Provider + Reason for Visit * Reason Comments Med Refill Encounter Details Date Type Department Care Team (Late st Contact Info) Description 06/04/2022 Refill [facility] - Family Medicine [address] [place] [phone] Lynda Manuel, AIR TRAFFIC CONTROLLER-TOY ELECTRIC TRAIN REPAIRER [address] [place] [address] Social History Tobacco Use Types Packs/Day Years [...] Answer Date Recorded Total Score 0 03/07/2022 [facility] of Occupat ional Health - Occupational Stress [...] PM EDT Hospital Encounter [facility] Surgery [address] [place] [address] Jhon Rosado MD [address], [facility] [address] [place] [address] 10/12/2024 5:00 PM EDT - 10/12/2024 6:15 PM EDT Surgery [facility] Division of [facility] Surgery [address] [place] [address] Jhon Rosado MD [address], [facility] [address] [place] [address] DEBRIDEMENT BREAST 10/26/2024 8:30 AM EDT Telephone Visit [facility] Gynecology Oncology, A Department of [place] [address] [facility] [address] [place] [address] [place] [address] [place] [address], [address] [place], [place] [phone] Scheduled Procedures Name Priority Associated Diagnoses Date/Ti me DEBRIDEMENT BREAST BREAST WOUND LEFT 10/12/2024 5:00 PM EDT documented as of this encounter Visit Diagnoses Not on filedocumented in this encounter Additional Health Concerns Infection Onset Date Last Indicated Resolved Time BILINGUAL CALL CENTER REPRESENTATIVE Comment:LT CHEST WALL TISSUE(08/12/24) 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
--- OUTSIDE RECORDS SUMMARY | 2024-10-10 15:08 | XMS_ITS | Encounter Summary ---
Author Organization [facility] [employer] [facility] [employer] Address [id number] [address] [place] [address] Care Team Providers Care Trimmer Press Clippings Name Role Phone Amy Collier SUPERVISOR SHRIMP POND-GLUCOSE AND SYRUP WEIGHER Primary Care Provider + Encounter Details Date Type Department Care Team (Late st Contact Info) Description 03/10/2023 Orders Only [facility] Internal Medicine - Family Medicine [address] [place] [address] External, Scanning Provider Social History [...] How often do you attend chur or gnosticism services? More than 4 times [...] Date Recorded Total Score 0 03/07/2022 [facility] of Occupat ional Health - Occupational [...] PM EDT Hospital Encounter [facility] - Surgery [address] [place] [phone] Jhon Rosado MD [address], [facility] [address] [place] [address] 10/12/2024 5:00 PM EDT - 10/12/2024 6:15 PM EDT Surgery [facility] - Surgery [address] [place] [phone] Jhon Rosado MD [address], [facility] [address] [place] [address] DEBRIDEMENT BREAST 10/26/2024 8:30 AM EDT Telephone Visit [facility] Gyne[facility] Oncology, Department of [address] [facility] [address] [place] [address] Raymond Sepulveda MD [address] [place] [address], [address] [place] [address] Scheduled Procedures Name Priority Associated Diagnoses Date/Ti me DEBRIDEMENT BREAST BREAST WOUND LEFT 10/12/2024 5:00 PM EDT documented as of this encounter Procedures Procedure Name Priority Date/Time Associated Diagnosis Comments HM MAMMOGRAPHY Routine 03/06/2023 8:23 AM EST documented in this encounter Results * HM MAMMOGRAPHY (03/06/2023 8:23 AM EST) Anatomical Region Laterality Modality Other us Scanning Provider External HEALTH MAINTENANCE Fi nal Result documented in this encounter Visit Diagnoses Not on filedocumented in this encounter Additional Health Concerns Infection Onset Date Last Indicated Resolved Time CAFETERIA MONITOR Comment:LT CHEST WALL TISSUE(08/12/24) 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
--- OUTSIDE RECORDS SUMMARY | 2024-10-10 15:08 | XMS_ITS | Encounter Summary ---
Author Organization [employer] Address [id number] [address] [place] [address] Care Team Providers Care Setter Up Name Role Phone Amy Collier BLOWER ROOM ATTENDANT-MANAGER CONTENT Primary Care Provider + Encounter Details Date Type Department Care Team (Late st Contact Info) Description 08/22/2024 Telephone [facility] Plastic and Re[facility]ive [facility] [address] [facility] [address] [place] [address] Viviane Lopez CMA Social History Tobacco Use Types Packs/Day Years Used Date Smoking Tobacco: Never Passive Smoke Exposure: Past Smokeless Tobacco: Never Alcohol Use Standard Drinks/Week Comments Not Currently 0 (1 standard drink = 0.6 oz pur e alcohol) [facility] Utilities Answer Date Recorded In the past 12 months has [employer] electric, gas, oil, or water [employer] threatened to shut off services in your [...] Answer Date Recorded Total Score 0 08/10/2024 [facility] of Occupat ional Health - Occupational Stress [...] Lopez CMA - 08/22/2024 4:54 PM EDT [facility] Microbiology lab Radha called she said they have a positive culture for rico of her left breast they be reached at [phone] * Telephone Encounter - AMEENA Kennedy - 08/22/2024 4:54 PM EDT Called micro back. Positive AFB. This is known for the patient. Currently seeing ID documented in this encounter Plan of Treatment Upcoming Encounters Date Type Department Care Team (Late st Contact Info) Description 10/12/2024 5:00 PM EDT Hospital Encounter [place] [facility] - Surgery [address] [place] [address] Jhon Rosado MD [address], [facility] [address] [place] [address] 10/12/2024 5:00 PM EDT - 10/12/2024 6:15 PM EDT Surgery [facility] - Surgery [address] [place] [address] Jhon Rosado MD [address] [facility], [address] [place] [address] DEBRIDEMENT BREAST 10/26/2024 8:30 AM EDT Telephone Visit [facility], A Department of [facility] [address] [facility] [address] [place] [address] Raymond Sepulveda MD [address] [facility], [address] [place] [address] Scheduled Procedures Name Priority Associated [...] Infection Onset Date Last Indicated Resolved Time RESIDENTIAL DIRECT SUPPORT PROFESSIONAL Comment:LT CHEST WALL TISSUE(08/12/24) 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
--- OUTSIDE RECORDS SUMMARY | 2024-10-10 15:08 | XMS_ITS | Encounter Summary ---
Author Organization [employer] Address [id number] [address] [place] [address] Care Team Providers Care Head Of History Name Role Phone Amy Collier MIXER WHIPPED TOPPING-UTILITY AIDE Primary Care Provider + Encounter Details Date Type Department Care Team (Late st Contact Info) Description 04/27/2024 Telephone [facility] [address] [facility] [address] [place] [address] Viviane Lopez CMA Social History Tobacco Use Types Packs/Day Years Used Date Smoking Tobacco: Never Passive Smoke Exposure: Past Smokeless Tobacco: Never Alcohol Use Standard Drinks/Week Comments Yes 0 (1 standard drink = 0.6 oz pur e alcohol) Socially [facility] Utilities Answer Date Recorded In the past 12 months has [employer] electric, gas, oil, or water [facility] threatened to shut off services in your [...] often do you attend chur ch or spiritism services? More than 4 times per year [...] Answer Date Recorded Total Score 2 03/30/2024 [facility] [place] of Occupat ional Health - Occupational Stress [...] 10/12/2024 5:00 PM EDT Hospital Encounter [facility] - Surgery [address] [place] [address] Jhon Rosado MD [address], [facility] [address] [place] [address] 10/12/2024 5:00 PM EDT - 10/12/2024 6:15 PM EDT Surgery [facility] - Surgery [address] [place] [address] Jhon Rosado MD [address], [facility] [address] [place] [address] DEBRIDEMENT BREAST 10/26/2024 8:30 AM EDT Telephone Visit [facility] Gynecology Oncology, A Department of [facility] [address] [place] [address] Raymond Sepulveda MD [address] [facility], [address] [place] [address] Scheduled Procedures Name Priority Associated Diagnoses Date/Ti me DEBRIDEMENT BREAST BREAST WOUND LEFT 10/12/2024 5:00 PM EDT documented as of this encounter Visit Diagnoses Not on filedocumented in this encounter Additional Health Concerns Infection Onset Date Last Indicated Resolved Time AWNING FINISHER Comment:LT CHEST WALL TISSUE(08/12/24) 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
--- OUTSIDE RECORDS SUMMARY | 2024-10-10 15:08 | XMS_ITS | Encounter Summary ---
Author Organization [facility] Address [address] [place] [address] Care Team Providers Care Bottom Buffer Name Role Phone Nilda Carolina RICHTER Unavailable [phone] Jessica Hope MD Unavailable [phone] Lynda Manuel MACHINE PULLER OVER Primary Care Provider [phone] Shereen Smallwood PA-C Unavailable [phone] aRdha Martinez RN Unavailable Amy Collier PUTTY TINTER MAKER Primary Care Provider [phone] Source Comments In the event this information is protected by the Federal Confidentiality of Alcohol and Drug AbusePatient Records regulations: The Federal rules restrict any use of the information to criminally investigate or prosecute any alcohol or drug abuse patient.[facility] Encounter Details Date Type Department Care Team (Late st Contact Info) Description 09/05/2024 [place] [address] Provider, Ccf Questionnaire Submission Social History Tobacco Use Types Packs/Day Years Used Date Smoking Tobacco: Never Passive Smoke Exposure: Never Smokeless Tobacco: Never Alcohol Use Standard Drinks/Week Comments Not Currently 0 (1 standard drink = 0.6 oz pur e alcohol) Occasional wine [facility] Utilities Answer Date Recorded In the past [...] any time in the past 12 m [facility], were you homeless or living in a skilled nursing (including now)? No 08/29/2024 Area Deprivation Index Answer Date [place] rded National Score (1-100), lower number is lower ri sk 82 07/21/2024 State Score (1-10), lower number is lower risk 7 07/21/2024 Data from: https://www.neighborhoodatlas.medicine.[facility].edu/. Last address used for calculation [...] Appointment [facility] [place] [address] [place] [address] With Perfusion 12/01/2024 2:00 PM EDT [facility] [address] [place] [address] Carols Mccain DO, PhD [address] [place] [address] Established patient Visit with Dr. Mccain for MRI review and follow up documented as of this encounter Visit Diagnoses Not on filedocumented in this encounter Care Teams Bottom Buffer Relationship Specialty Start Date End Date Lynda Manuel, MACHINE PULLER OVER [address] [place] [address] PCP - General Family Medicine 06/14/24 09/26/24 Amy Collier NP [address] [place] [address] PCP - General Family Medicine 09/27/24 Carolina Munguia APRN [address] [facility] [address] [place] [address] 12/04/23 Jessica Hope MD [address] [place] [address] Referring Hematology/Oncology 06/14/24 Shereen Smallwood PA-C [address] [facility] [address] [place] [address] [facility] Referring Orthopedics 06/15/24 [place] [address] [place] [address] Specialty Manager Recruitment Hematology/Oncology 07/31/24 documented as of this encounter
--- OUTSIDE RECORDS SUMMARY | 2024-10-10 15:08 | XMS_ITS | Encounter Summary ---
Author Organization [employer] Address [id number] [address] [place] [address] Care Team Providers Care Sr. Payroll Manager Name Role Phone Amy Collier CITY DESIGNER-WOODWORKING BENCH CARPENTER Primary Care Provider + Encounter Details Date Type Department Care Team (Late st Contact Info) Description 04/21/2023 Orders Only [facility] Surgical Oncology [address] [facility] [address] [place] [address] Ref Prov, [place] [address] Social History Tobacco Use Types Packs/Day Years [...] Hospital Encounter [facility] - Surgery [address] [place] [address] Jhon Rosado MD [address], [facility] [address] [place] [address] 10/12/2024 5:00 PM EDT - 10/12/2024 6:15 PM EDT Surgery [facility] - Surgery [address] [place] [address] Jhon Rosado MD [address], [facility] [address] [place] [address] DEBRIDEMENT BREAST 10/26/2024 8:30 AM EDT [facility]phone [facility] Gynecology Oncology, A Department of [place] [address] [facility] [address] [place] [address] Raymond Sepulveda MD [address] [place] [address], [address] [place] [address] Scheduled Procedures Name Priority Associated [...] Infection Onset Date Last Indicated Resolved Time SHOT PACKER Comment:LT CHEST WALL TISSUE(08/12/24) 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 Payroll Manager Relationship Specialty Start Date End Date Amy Collier, CITY DESIGNER-WOODWORKING BENCH CARPENTER [address] [place] [address] PCP - General 11/28/16 documented as of this encounter
--- OUTSIDE RECORDS SUMMARY | 2024-10-10 15:08 | XMS_ITS | Encounter Summary ---
Author Organization [facility] Address [address] [place] [address] Care Team Providers Care Running Rigger Name Role Phone Randy Lu MD Primary Care Provider [phone] Encounter Details Date Type Department Care Team (Late Contact Info) Description 2024 Abstract [facility] [place] [address] Evan Thompson DO [facility] [place], [place] [address] Social History Tobacco Use Types Packs/Day Years [...] [facility] [address] [place] [address] Evan Thompson DO [address] [place], [id number] documented as of this encounter Visit Diagnoses Not on filedocumented in this encounter Care Teams Running Rigger Relationship Specialty Start Date End Date Randy Lu MD PCP - General Family Medicine 04/02/23 documented as of this encounter
--- OUTSIDE RECORDS SUMMARY | 2024-10-10 15:08 | XMS_ITS | Encounter Summary ---
Author Organization [facility] Address [address] [place] [address] Care Team Providers Care Drier And Grinder Tender Name Role Phone Carolina Munguia APRN Unavailable [phone] Jessica Hope MD Unavailable [phone] Shereen Smallwood PA-C Unavailable [phone] Radha Martinez RN Unavailable Amy Collier NP Primary Care Provider [phone] Source Comments In the event this information is protected by the Federal Confidentiality of Alcohol and Drug AbusePatient Records regulations: The Federal rules restrict any use of the information to criminally investigate or prosecute any alcohol or drug abuse patient.[facility] Encounter Details Date Type Department Care Team (Latest Contact Info) Description 10/07/2024 Operative Note (Enc) [facility] [address] [place] [id number] Carlos Mccain DO, PhD [address] [facility] [address] [place] [address] 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 No 08/29/2024 Area Deprivation Index Answer Date Milton rded National Score (1-100), lower number is lower ri sk 82 07/21/2024 State Score (1-10), lower number is lower risk 7 07/21/2024 Data from: https://www.neighborhoodatlas.medicine.[facility].edu/. Last address used for calculation [address] 07/21/2024 Comments Unknown Sex and Gender Information Value Date Recorded Sex Assigned at Not on file Legal Sex Female 3:51 PM EDT Gender Identity Not on file Sexual Orientation Not on file documented as of this encounter Progress Notes * Carlos Mccain DO, PhD - 10/07/2024 2:28 PM EDT [facility] [address] [place] [address] [place] OPERATIVE REPORT NAME: Yasmin Flannery [facility] NO.: [id number] MASK SIMULATION DATE: 2024-10-07 RADIATION TREATMENT START DATE: 2024-10-07 RADIATION TREATMENT END DATE: 2024-10-07 NUMBER OF FRACTIONS: 1 PREOPERATIVE DIAGNOSIS: Bilateral Metastasis, breast POSTOPERATIVE DIAGNOSIS: Same OPERATION: 1 fraction mask gamma knife radiosurgery. Second stage based on tumor size. ANESTHESIA: None SURGEON: Carlos Mccain DO, PhD - Stereotactic treatment planning. RADIATION ONCOLOGIST: Marcos Adams M.D. ASSISTANTS: NONE SPECIMEN: None EBL: 0 ccs OPERATIVE INDICATIONS: The full clinical history and indications for treatment were discussed in the initial neurosurgery visit note. The indications, risks, benefits, and alternatives were discussedwith the patient who asked us to proceed. The patient is aware that this may be one of several staged procedures in the management of this disorder. OPERATIVE FINDINGS: DESCRIPTION OF PROCEDURE: The patient was admitted to the Gamma Knife Center. The Leksell mask was created and a stereotactic cone-beam CT was obtained. The patient then underwent high-resolution MRIand CT imaging. The scans, including the cone-beam registration CT, were loaded in the planning computer and Leksell gamma plan was used to perform fractionated radiosurgery dose planning. The lesionwas treated as follows: Target 1 (vermis 2nd stage) Location: vermis 2nd stage Prescription: 12 Gy to the 55% local isodose line. The plan uses 23 shots covering 100% of the target. GTV Volume: 3.86 cm3 CTV Volume: 3.86 cm3 Max linear size: 2.1 cm Conformality Index (PIV/CTV) = 1.168 Complexity: Simple Gradient Index: 2.8 Number of Fractions: 1 After the usual corporate quality engineer procedures were performed, fractionated radiosurgery was delivered with use of the Gamma Knife. The Gamma Knife checklists and time outs were performed during this procedure in a standard manner. Carlos Mccain DO, PhD documented in this encounter Plan of Treatment Upcoming Encounters Date Type Department Care Team (Latest Contact Info) Description 11/29/2024 10:20 AM EDT Appointment [facility] Radiology MRI [address] [place] [address] With Perfusion 12/01/2024 2:00 PM EDT [facility] [address] [place] [address] Carlos Mccain DO, PhD [address] [facility] [address] [place] [address] Established patient Visit with Dr. Mccain for MRI review and follow up documented as of this encounter Visit Diagnoses Diagnosis 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)- Primary documented in this encounter Care Teams Drier And Grinder Tender Relationship Specialty Start Date End Date Amy Collier NP [address] [place] [address] PCP - General Family Medicine 09/27/24 Carolina Munguia APRN [address] [facility] [address] [place] [address] 12/04/23 Jessica Hope MD [address] [place] [address] Referring Hematology/Oncology 06/14/24 Shereen Smallwood PA-C [address] [facility] [address] [place] [address] [facility] Referring Orthopedics 06/15/24 [place] [address] [place] [address] Specialty Channel Layer Hematology/Oncology 07/31/24 documented as of this encounter
--- OUTSIDE RECORDS SUMMARY | 2024-10-10 15:08 | XMS_ITS | Encounter Summary ---
Author Organization [facility] Address [address] [place] [address] Care Team Providers Care Bsa/Aml Compliance Officer Name Role Phone Carolina Munguia APRN Unavailable [phone] Jessica Hope MD Unavailable [phone] Shereen Smallwood PA-C Unavailable [phone] Radha Martinez RN Unavailable Amy Collier NP Primary Care Provider [phone] Source Comments In the event this information is protected by the Federal Confidentiality of Alcohol and Drug AbusePatient Records regulations: The Federal rules restrict any use of the information to criminally investigate or prosecute any alcohol or drug abuse patient.[facility] Encounter Details Date Type Department Care Team (Latest Contact Info) Description 10/07/2024 Travel Social History Tobacco Use Types Packs/Day Years Used Date Smoking Tobacco: Never Passive Smoke Exposure: Never Smokeless Tobacco: Never Alcohol Use Standard Drinks/Week Comments Not Currently 0 (1 standard drink = 0.6 oz pur e alcohol) Occasional wine [facility] Utilities Answer Date Recorded In the past 12 months has [employer], gas, oil, or water company threatened to [...] in the past 12 m [facility], were you homeless or living in a chcf (including now)? No 08/29/2024 Area Deprivation Index Answer Date Milton rded National Score (1-100), lower number is lower ri sk 82 07/21/2024 State Score (1-10), lower number is lower risk 7 07/21/2024 Data from: https://www.neighborhoodatlas.medicine.[facility].edu/. Last address used for calculation [address] [...] Info) Description 11/29/2024 10:20 AM EDT Appointment [facility] Radiology MRI [address] [place], [place] [id number] With Perfusion 12/01/2024 2:00 PM EDT [facility] [address] [place] [address] Carlos Mccain DO, PhD [address] [place] [address] Established patient Visit with Dr. Mccain for MRI review and follow up documented as of this encounter Visit Diagnoses Not on filedocumented in this encounter Care Teams Bsa/Aml Compliance Officer Relationship Specialty Start Date End Date Amy Collier NP [address] [place] [address] PCP - General Family Medicine 09/27/24 Carolina Munguia APRN [address] [facility] [address] [address] 12/04/23 Jessica Hope MD [address] [place] [address] Referring Hematology/Oncology 06/14/24 Shereen Smallwood PA-C [address] [facility] [address] [place] [address] [facility] Referring Orthopedics 06/15/24 [place] [address] [place] [address] Specialty Stave Cutting Supervisor Hematology/Oncology 07/31/24 documented as of this encounter
--- OUTSIDE RECORDS SUMMARY | 2024-10-10 15:08 | XMS_ITS | Encounter Summary ---
Author [id number] [address] [place] [address] Care Team Providers Care Rod Finisher Name Role Phone Amy Collier COLLECTION SPECIALIST-BUNDLE SHAKER Primary Care Provider + Encounter Details Date Type Department Care Team (Late st Contact Info) Description 08/18/2022 Orders Only [facility] Internal Medicine - Family Medicine [address] [place] [address] External, Scanning Provider Social History [...] How often do you attend chur or jehovah's witness services? More than 4 [...] Date Recorded Total Score 0 03/07/2022 [facility] Occupat ional Health - Occupational [...] Do you need help finding a [facility] career center and/or a training [...] Hospital Encounter [facility] - Surgery [address] [place] [address] Jhon Rosado MD [address], [facility] [address] [place] [address] 10/12/2024 5:00 PM EDT - 10/12/2024 6:15 PM EDT Surgery [facility] - Surgery [address] [place] [address] Jhon Rosado MD [address], [facility] [address] [place] [address] DEBRIDEMENT BREAST 10/26/2024 8:30 AM EDT Telephone Visit [facility] Gynecology Oncology, Department of [place] [address] [facility] [address] [place] [address] Raymond Sepulveda MD [address] [place] [address], [address] [place] [address] Scheduled Procedures Name Priority Associated Diagnoses Date/Ti me DEBRIDEMENT BREAST BREAST WOUND LEFT 10/12/2024 5:00 PM EDT documented as of this encounter Procedures Procedure Name Priority Date/Time Associated Diagnosis Comments MULTIPLE LABS Routine 08/15/2022 documented in this encounter Results * Multiple labs (08/15/2022) us Scanning Provider External MI IMAGING Final Result MANUALLY TRANSCRIBED RESULTS documented in this encounter Visit Diagnoses Not on filedocumented in this encounter Additional Health Concerns Infection Onset Date Last Indicated Resolved Time LICENSING SPECIALIST Comment:LT CHEST WALL TISSUE(08/12/24) 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
--- OUTSIDE RECORDS SUMMARY | 2024-10-10 15:08 | XMS_ITS | Encounter Summary ---
Author Organization [facility] Address [address] [place] [address] Care Team Providers Care Catalyst Operator Chief Name Role Phone Carolina Munguia APRN Unavailable [phone] Jessica Hope MD Unavailable [phone] Shereen Smallwood PA-C Unavailable [phone] Radha Martinez RN Unavailable Amy Collier NP Primary Care Provider [phone] Source Comments In the event this information is protected by the Federal Confidentiality of Alcohol and Drug AbusePatient Records regulations: The Federal rules restrict any use of the information to criminally investigate or prosecute any alcohol or drug abuse patient.[facility] Encounter Details Date Type Department Care Team (Late st Contact Info) Description 10/07/2024 Orders Only Neurosurgery [address] [place] [id number] Carlos Mccain DO, PhD [address] [facility] [address] [place] [address] Secondary malignant neoplasm of brain (HCC) (Primary Dx) Social History Tobacco Use Types Packs/Day Years Used Date Smoking Tobacco: Never Passive Smoke Exposure: Never Smokeless Tobacco: Never Alcohol Use Standard Drinks/Week Comments Not Currently 0 (1 standard drink = 0.6 oz pur e alcohol) Occasional wine [facility] Utilities Answer Date Recorded In the [...] any time in the past 12 m onths, were you homeless or living in a detention (including now)? No 08/29/2024 Area Deprivation Index Answer Date Milton rded National Score (1-100), lower number is lower ri sk 82 07/21/2024 State Score (1-10), lower number is lower risk 7 07/21/2024 Data from: https://www.neighborhoodatlas.medicine.[facility].edu/. Last address used for calculation [address] [...] Info) Description 11/29/2024 10:20 AM EDT Appointment [facility] Radiology MRI [address] [place] [place] [address] With Perfusion 12/01/2024 2:00 PM EDT [facility] [address] [place] [address] Carlos Mccain DO, PhD [address] [facility] [address] [place] [address] Established patient Visit with Dr. 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 documented in this encounter Care Teams Catalyst Operator Chief Relationship Specialty Start Date End Date Amy Collier NP [address] [place] [address] PCP - General Family Medicine 09/27/24 Carolina Munguia APRN [address] [facility] [address] [place] [address] 12/04/23 Jessica Hope MD [address] [place] [address] Referring Hematology/Oncology 06/14/24 Shereen Smallwood PA-C [address] [facility] [address] [place] [address] [facility] Referring Orthopedics 06/15/24 [place] [address] [place] [address] Specialty [employer] School Registrar Hematology/Oncology 07/31/24 documented as of this encounter
--- OUTSIDE RECORDS SUMMARY | 2024-10-10 15:08 | XMS_ITS | Encounter Summary ---
Author Organization [facility] Address [id number] [address] [place] [address] Care Team Providers Care Fancy Wire Drawer Name Role Phone Amy Collier LAST SAWYER-THERMOGRAPH OPERATOR Primary Care Provider + Encounter Details Date Type Department Care Team (Late st Contact Info) Description 04/29/2024 Orders Only [facility] Division [facility] - 8 Med-Surg/Ortho [address] [place] [address] Lynda Morillo RN Social History Tobacco Use Types Packs/Day Years Used Date Smoking Tobacco: Never Passive Smoke Exposure: Past Smokeless Tobacco: Never Alcohol Use Standard Drinks/Week Comments Yes 0 (1 standard drink = 0.6 oz pur e alcohol) Socially [employer] Utilities Answer Date Recorded In the past [...] Answer Date Recorded Total Score 2 03/30/2024 [facility] [place] of Occupat ional Health - Occupational Stress [...] Recorded Do you need help finding a [facility] career [facility] and/or a training program? [...] Description 10/12/2024 5:00 PM EDT Hospital Encounter [facility] - Surgery [address] [place] [address] Jhon Rosado MD [address], [facility] [address] [place] [address] 10/12/2024 5:00 PM EDT - 10/12/2024 6:15 PM EDT Surgery [facility] - Surgery [address] [place] [address] Jhon Rosado MD [address], [facility] [address] [place] [address] DEBRIDEMENT BREAST 10/26/2024 8:30 AM EDT Telephone Visit 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
--- OUTSIDE RECORDS SUMMARY | 2024-10-10 15:08 | XMS_ITS | Encounter Summary ---
Author Organization [facility] Address [id number] [address] [place] [address] Care Team Providers Care Hosiery Repairer Name Role Phone Amy Collier DIRECTOR OF SLOT OPERATIONS-CHIEF ENGINEER RESEARCH Primary Care Provider + Encounter Details Date Type Department Care Team (Late st Contact Info) Description 04/23/2023 Orders Only [facility] - Family Medicine [address] [place] [address] External, Scanning Provider Social History [...] How often do you attend chur or mormon services? More than 4 times [...] Answer Date Recorded Total Score 0 03/07/2022 [facility] of Occupat ional Health - Occupational [...] Recorded Do you need help finding a [facility] career center and/or a training [...] Description 10/12/2024 5:00 PM EDT Hospital Encounter [facility] Surgery [address] [place] [address] Jhon Rosado MD [address], [facility] [address] [place] [address] 10/12/2024 5:00 PM EDT - 10/12/2024 6:15 PM EDT Surgery [facility] - Surgery [address] [address] Jhon Rosado MD [address], [facility] [address] [place] [address] DEBRIDEMENT BREAST 10/26/2024 8:30 AM EDT Telephone Visit [facility] Gynecology Oncology, [address] [facility] [address] [place] [address] Raymond Sepulveda MD [address] [place] [address], [address] [place] [address] Scheduled Procedures Name Priority Associated [...] Onset Date Last Indicated Resolved Time MAIL PROCESSOR Comment:LT CHEST WALL TISSUE(08/12/24) 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
--- NOTE | 2024-10-10 16:11 | PE_ITS ---
The [address] [address] Patient Name: IKE JONES MRN: [id number] date: 1970 Sex: F Assigned Patient Location: PETCT Current Patient Location: [facility] Accession/Order Number: [id number] Exam Date: 10/11/2024 09:03 Report Date: 10/11/2024 09:19 At the request of: AARTI NUNEZ MD Procedure: PET skull to mid thigh PET/CT FUSION IMAGING CLINICAL INFORMATION: Breast cancer COMPARISON : Prior PET/CT 10/26/2023 TECHNIQUE: Noncontrasted CT scan from the base of the skull to the upper thigh followed by PET imaging. Multiplanar PET/CT fusion images. Blood Glucose : 89 mg/dL The F-18 FDG 10.69mCi. FINDINGS: Neck: No focal abnormal activity. Chest:No focal abnormal activity is seen involving the mediastinum or hilar regions. No abnormal activity is seen involving the lung parenchyma. Presumed postsurgical activity is seen involving the left mastectomy bed. Right breast demonstrates presumed postintervention changes without abnormal activity. Postsurgical changes are seen involving the right axilla with an FDG avid lymph node present, SUV max of 6.2. FDG avid right intramammary lymph node, SUV max of 4.8. No abnormal activity is seen involving the left axilla. Abdomen/pelvis: Multiple FDG avid lesions are seen within the liver, SUV max of 9.9. No abnormal activity is seen involving the adrenal glands. Abnormal activity is seen within the expected region of the uterus, SUV max 8.8. Soft tissue/bones: No abnormal activity is identified. CT findings: No pneumothorax. Evidence old granulomatous disease. Trace bilateral pleural effusions which are not FDG avid. No free air or free fluid is seen. PET/PET skull to mid thigh IMPRESSION: 1. PET/CT evidence of progression disease when compared to the prior PET/CT study from 10/26/2023. 2. New FDG avid liver lesions consistent with metastatic disease. 3. New FDG avid right axillary and intramammary lymph nodes suspicious for metastatic disease. 4. Left Mastectomy changes since the prior PET/CT with residual presumed postsurgical activity. 5. New abnormal activity is seen in the expected location of the uterus. Underlying secondary malignancy cannot BE excluded. Further evaluation with ultrasound is recommended. 6. Trace bilateral pleural effusions. Impression dictated by: Alok Nicolas Jr., D.O. 10/11/2024 9:19 AM Dictation Location: [place] [address] Electronically authenticated by: [id number] Y Date: 10/11/2024 09:19
== END 2024-10-10 15:03 | disposition home or self-care (01) ==
LOC: PETCT 15:02
PROVIDERS: PCP Nurse Practitioner Family; Visit Provider Internal Medicine Hematology & Oncology
DX: C50.311 Malignant neoplasm of lower-inner quadrant of right female breast (principal); Z79.899 Other long term (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 therapy; D70.1 Agranulocytosis secondary to cancer chemotherapy; R11.2 Nausea with vomiting, unspecified; C77.9 Secondary and unspecified malignant neoplasm of lymph node, unspecified; Z15.09 Genetic susceptibility to other malignant neoplasm; Z79.818 Long term (current) use of other agents affecting estrogen receptors and estrogen levels; D64.81 Anemia due to antineoplastic chemotherapy; C77.3 Secondary and unspecified malignant neoplasm of axilla and upper limb lymph nodes; Z17.1 Estrogen receptor negative status [ER-]; Z17.22 Progesterone receptor negative status
CPT/HCPCS: 78815; A9552

== ENCOUNTER 2024-10-19 08:07 | Outpatient (OUT) | payer OTHER, SELFPAY ==
--- NOTE | 2024-10-19 08:15 | CA_ITS ---
Patient Name: IKE JONES MR#: [id number] : 1970 Exam Date: 10/19/2024 Ordering Doctor: AARTI NUNEZ ECHOCARDIOGRAM REPORT PROCEDURE: CA ECHO DOPPLER COMPLETE INDICATIONS: Malignant neoplasm of right breast, nursing home drug therapy COMPARISON: None. DESCRIPTION: COMPLETE ECHOCARDIOGRAM Real-time transthoracic echocardiography with 2D, M-mode, spectral and color flow Doppler performed. QUALITY: Technical quality was good. LEFT VENTRICLE: Normal chamber size. Thickened septal wall. Mild to moderate concentric hypertrophy. Global left ventricular systolic function is normal. Global longitudinal strain is -13.8% which is reduced. LV EF: Calculated left ventricular ejection fraction is 55%. DIASTOLIC: Normal diastolic function. ATRIAL SEPTUM: LEFT ATRIUM: Normal chamber size. RIGHT ATRIUM: Mild dilatation. RIGHT VENTRICLE: Normal chamber size. Normal right ventricular systolic function. TRICUSPID VALVE: Normal mobility and thickness. No stenosis with mild regurgitation. No evidence of pulmonary hypertension. RVSP 18 mmHg. MITRAL VALVE: Mildly thickened with normal mobility. No evidence of mitral valve stenosis. There is no mitral annular calcification. Trivial mitral regurgitation. AORTIC VALVE: Normal trileaflet appearance. No visible sclerosis. Normal leaflet mobility. No evidence of aortic valve stenosis. Trivial aortic regurgitation. AORTIC ROOT: Normal diameter and appearance, measuring 3.6 cm. The ascending aorta is normal in size and measures 3.2 cm. PULMONIC VALVE: Normal thickness and mobility. No stenosis. Trivial regurgitation. PERICARDIUM: Small anterior pericardial effusion [measuring 0.8 cm]. No evidence of tamponade physiology. IVC: Collapses with inspiration. Normal size. PLEURA: CONCLUSION: 1. Mild to moderate concentric left ventricular hypertrophy with normal systolic function. LVEF is calculated at 55%. Global longitudinal strain is reduced at -13.8%. 2. Normal right ventricular size and systolic function. 3. Normal diastolic function. 4. Normal right-sided pressures. 5. Small anterior pericardial effusion without any evidence of tamponade physiology by echocardiographic criteria. Adult Echocardiography Procedure Report Left Ventricle LVEDD (3.7 - 5.6 cm): 4.26 cm LVESD (2.2 - 4.0 cm): 3.19 cm LVIVS thickness (0.6 - 1.2 cm): 1.61 cm LVPW thickness (0.5 - 1.0 cm): 1.20 cm e': 0.07 m/s E - e': 6.18 LVOT Max Gradient: 3.07 mm[Hg] LVOT Area (cm2): 0.88 m/s Peak Velocity (LVOT): 0.88 m/s Mean Velocity (LVOT): 0.62 m/s LVOT Diameter 2.03 cm Left Ventricular Ejection Fraction: 55.34 % Left Atrium LA Volume Index (2D A2C): 18.97 ml/m2 Left Atrium Systolic Dimension: 3.76 cm Mitral Valve MV E to A Ratio: 1.26 Mitral Valve A-Wave Peak Velocity: 0.32 m/s Mitral Valve E-Wave Peak Velocity: 0.41 m/s Right Ventricle RV Internal Diastolic Dimension: 3.19 cm Aorta AO Root Diam: 3.59 cm Ascending Ao Diam: 3.23 cm Aortic Valve AoV Area (Peak Stefan): 2.89 cm2, 2.89 cm2 AoV Area (VTI): 2.94 cm2, 2.94 cm2 Peak Velocity(Antegrade Flow): 0.98 m/s Peak Gradient(Antegrade Flow): 3.87 mm[Hg] Mean Velocity(Antegrade Flow): 0.69 m/s Mean Gradient(Antegrade Flow): 2.18 mm[Hg] Velocity Time Integral: 17.58 cm Tricuspid Valve Peak Velocity (Regurgitant Flow): 1.93 m/s, 1.74 m/s Pulmonic Valve Peak Velocity: 0.67 m/s Peak Gradient: 1.78 mm[Hg] Right Atrium Right Atrium Systolic Pressure: 30.67 ml, 30.67 ml Dictated by: Clint Villanueva M.D. on 10/19/2024 at 17:50 Approved by: Clint Villanueva M.D. on 10/19/2024 at 17:56
--- OUTSIDE RECORDS SUMMARY | 2024-10-19 08:19 | XMS_ITS | CCD ---
Author Organization [facility] Care Team Providers Care Document Advisor Name Role Phone Jesusita Gee Unavailable RANDY CALLE Primary Care Unavailable Reny, Hua Kraus Admitting Unavail able Reny, Hua Kraus Attending Unavail able Hua Oglesby Admitting Unavail able RANDY CALLE Primary Care Unavailable [place], Hua Kraus Attending Unavail able RANDY CALLE Primary Care Unavailable Paco Giraldo Attending Unavailable RANDY CALLE Primary Care Unavailable [place], Hua Kraus Admitting Unavail able RANDY CALLE Consulting Unavailable [place], Hua Kraus Attending Unavail able Reny, Hua Kraus Admitting Unavail able RANDY CALLE Primary Care Unavailable Hiral Small Consulting Unavailable [place], Hua Kraus Attending Unavail able RANDY CALLE Primary Care Unavailable [place], Hua Kraus Admitting Unavail able Reny, Hua Kraus Attending Unavail able [place], Hua Kraus Admitting Unavail able RANDY CALLE Primary Care Unavailable [place], Hua Kraus Attending Unavail able KRYSTEN, DR ANNE Admitting Unavailable KRYSTEN, DR ANNE Attending Unavailable ALVA, DR RANDY Jaramillo Primary Care Unavailable KRYSTEN, DR ANNE Consulting Unavailable MAR, DR KAYE Garcia Admitting Unavailable MAR, DR KAYE Garcia Attending Unavailable ALVA, DR RANDY Jaramillo Primary Care Unavailable KRYSTEN, DR ANNE Consulting Unavailable RIDDLESBURG, DR HIRAL Meza Consulting Unavailable MAR, DR KAYE Garcia Consulting Unavailable Sandrita WILLETT Primary Care Physician RANDY CALLE Primary Care Physician James Callelinnea Jaramillo Unavailable Unavailable Unavailable Christy WRIGHT, Dr. Shanon [...] Gtz Referring Unavailable Furlong, Dr. Randy Meier [facility] Care Unava ilable Alec, Starr Cortes Attending Unavai labiza Santos, MsStarr Cortes Referring Unavai lable Furlong, Dr. Randy Meier Primary Care Unava ilable BRITTANI AVALOS Attending Unavailable KRISTAN SANTOS, BRITTANI Referring Unavailable Furlong, Dr. Randy Meier Primary [facility] [place] Unava ilable Alva, DO Padilla Primary Care Provider GUY Hanna Attending Provider Randy Calle MD Primary Care Provider DO Randy Calle Primary Care Provider MD Quincy Colbert Attending Provider MD Latesha Hopeorva Referring Provider DO Randy Calle Primary Care Provider [phone] MD Quincy Colbert Attending Provider MD Aarti Hope Referring Provider Jacques RICHTER-Richie MATA Primary Care Provider SHANON TYLER Attending Unavailable RANDY CALLE Primary Care Unavailab le Randy Calle DO Primary Care Provider Quincy Colbert MD Attending Provider Aarti Hope MD Referring Provider [phone] Jay GALLEGOS, Evan Attending Provider Jacques PLANNING LEAD-APPARATUS ENGINEERING TECHNOLOGIST, Richie L Primary Care Provider Rusty Horton Attending Unavailable Ulisses GONSALEZ Attending Unavailable Sandrita WILLETT Attending Unavailable [place]enoc, Astrit H Attending Unavailable [place], Astrit H Attending Unavailable Jacques PLANNING LEAD-APPARATUS ENGINEERING TECHNOLOGIST, Richie L Primary Care Provider Randy Calle MD Primary Care Provider Evan Thompson DO Attending Provider [phone] Randy Calle DO Primary Care Provider [phone] Shereen Smallwood PA-C Attending Provider [phone] Shereen Smallwood PA-C Referring Provider [phone] Aarti Hope MD Attending Provider NASREEN LI Attending Unavailable EVAN THOMPSON Attending Unavailable GEORGIANA JUSTICE Attending Unavailable YVES COFFEY Attending Unavailable YVES COFFEY Attending Unavailable EVAN THOMPSON Attending Unavailable YVES COFFEY Attending Unavailable EVAN THOMPSON Attending Unavailable EVAN THOMPSON Attending Unavailable Gino Flower APRN Unavailable [phone] Aarti Hope MD Unavailable Mar MATAKaye R Primary Care Provider Shereen Smallwood PA-C Unavailable Juan RENAE, Saman Unavailable JACQUES, RICHIE L Referring Unavailable JACQUES, RICHIE L Primary Care Unavailable JACQUES, RICHIE L Referring Unavailable JACQUES, RICHIE L Primary Care Unavailable JACQUES, RICHIE L Attending Unavailable JACQUES, RICHIE L Referring Unavailable JACQUSE, RICHIE L Primary Care Unavailable DHRUV WHITE Attending Unavailable JACQUES, RICHIE L Referring Unavailable JACQUES, RICHIE L Primary Care Unavailable Shereen Smallwood Admitting Unavailable Randy Calle Primary Care Unavailable Shereen Smallwood Referring Unavailable Shereen Smallwood Attending Unavailable Quincy Colbert Attending Unavailable Quincy Colbert Admitting Unavailable Furlong, Randy Primary Care Unavailable Jayy, Aarti Referring Unavailable Shereen Smallwood Attending Unavailable Shereen Smallwood Admitting Unavailable Furlong, Randy Primary Care Unavailable Evan Thompson Attending Unavailable Evan Thompson Admitting Unavailable Furlong, Randy Primary Care Unavailable Jayy, Aarti Attending Unavailable Jayy, Aarti Admitting Unavailable Jacques PUZZLE ASSEMBLER, Richie Ernst Primary Care Provider MARISELA CUEVAS Attending Unavailable JACQUES, RICHIE L Referring Unavailable JACQUES, RICHIE L Primary Care Unavailable CUEVASMARISELA CARLSON Attending Unavailable JACQUES, RICHIE L Referring Unavailable JACQUES, RICHIE L Primary Care Unavailable CUEVASMARISELA CARLSON Attending Unavailable JACQUES, RICHIE L Referring Unavailable JACQUES, RICHIE L Primary Care Unavailable MARISELA CUEVAS Attending Unavailable JACQUES, RICHIE L Referring Unavailable JACQUES, RICHIE L Primary Care Unavailable JHON GROSS Attending Unavail able JACQUES, RICHIE L Referring Unavailable JACQUES, RICHIE L Primary Care Unavailable JHON GROSS Attending Unavail able JACQUES, RICHIE L Referring [...] JACQUES, RICHIE L Primary Care Unavailable JHON GROSS Attending Unavail able JACQUES, RICHIE L Referring Unavailable JACQUES, RICHIE L Primary Care Unavailable JHON GROSS Attending Unavail able JACQUES, RICHIE L Referring Unavailable JACQUES, RICHIE L Primary Care Unavailable JHON GROSS Attending Unavail able JACQUES, RICHIE L Referring Unavailable JACQUES, RICHIE L Primary Care Unavailable MARISELA CUEVAS Attending Unavailable JACQUES, RICHIE L Referring Unavailable JACQUES, RICHIE L Primary Care Unavailable MARISELA CUEVAS Attending Unavailable JACQUES, RICHIE L Referring Unavailable JACQUES, RICHIE L Primary Care Unavailable MARISELA CUEVAS Attending Unavailable JACQUES, RICHIE L Referring Unavailable JACQUES, RICHIE L Primary Care Unavailable JHON GROSS Attending Unavail able JACQUES, RICHIE L Referring Unavailable JACQUES, RICHIE L Primary Care Unavailable SELINSHEREEN PENA Attending Unavailable JACQUES, RICHIE L Referring Unavailable JACQUES, RICHIE L Primary Care Unavailable JACQUES, RICHIE L Referring Unavailable JACQUES, RICHIE L Primary Care Unavailable MARISELA CUEVAS Attending Unavailable TRISH LOMBARDO Attending Unavailable JCAQUES, RICHIE L Referring Unavailable JACQUES, RICHIE L [...] Unavailable JACQUES, RICHIE L Primary Care Unavailable SELINSHEREEN MOTA Attending Unavailable JACQUES, RICHIE L Referring Unavailable JACQUES, RICHIE L Primary Care Unavailable SELINSHREEEN MOTA Attending Unavailable JACQUES, RICHIE L Referring Unavailable JACQUES, RICHIE L Primary Care Unavailable SELINSHEREEN MOTA Attending Unavailable JACQUES, RICHIE L Referring Unavailable JACQUES, RICHIE L Primary Care Unavailable SELINSHEREEN MOTA Attending Unavailable JACQUES, RICHIE L Referring Unavailable JACQUES, RICHIE L Primary Care Unavailable JHON GROSS Attending Unavail able JACQUES, RICHIE L Referring Unavailable JACQUES, RICHIE L Primary Care Unavailable MARISELA CUEVAS Attending Unavailable JACQUES, RICHIE L Referring Unavailable JACQUES, RICHIE L Primary Care Unavailable KUNS, KAYE R Primary Care Unavailable JOSUE MCCAIN Referring Unavailable SAM MELO Attending Unavailable KUNS, KAYE R Primary Care Unavailable MCCAINTRAMN Referring Unavailable KUNS, KAYE R Primary Care Unavailable EV CORTEZ Referring Unavailable ALESSANDRA SYED Attending Unavailable JACQUES, RICHIE KRISTI Primary Care Unavailable MCCAIN, JOSUE Referring Unavailable MCCAIN, JOSUE Attending Unavailable MCCAIN, JOSUE Admitting Unavailable JACQUES, [facility] Primary Care Unavailable MCCAIN, JOSUE Referring Unavailable MCCAIN, JOSUE Attending Unavailable MCCAIN, JOSUE Admitting Unavailable [facility] Primary Care Unavailable BITTIKOFER, GENO Referring Unavailable BITGENO MAHARAJ Attending Un[facility] Primary Care Unavailable MCCAIN, JOSUE Referring Unavailable JACQUES, [facility] Primary Care Unavailable MCCAIN, JOSUE Referring Unavailable MCCAIN, JOSUE Attending Unavailable MCCAIN, JOSUE Admitting Unavailable JACQUES, [facility] Primary Care Unavailable MCCAIN, JOSUE Referring Unavailable MCCAIN, JOSUE Attending Unavailable [place], JOSUE Admitting Unavailable [facility] Primary Care Unavailable [place], JOSUE Referring Unavailable [facility] Primary Care Unavailable MARISELA CISNEROS Attending Un[facility] Primary Care Unavailable EV CORTEZ Attending Unavailable PK BOSCH Referring Unavailable GENNA SAHU Admitting Unavailable JACQUES, [facility] Primary Care Unavailable MCCAIN, JOSUE Referring Unavailable JACQUES, [facility] Primary Care Unavailable [place], JOSUE Referring Unavailable [facility] Primary Care Unavailable [place], JOSUE Referring Unavailable [facility] R Primary Care Unavailable [place], JOSUE Referring Unavailable LORIESAM Martinez Attending Unavailable [facility] R Primary Care Unavailable KRYSTIN BARRAGAN Unava ilable [facility] Primary Care Unavailable JAYY AARTI Referring Unavailable BOBBY CHRISTY Attending Unavailable HE, CHRISTY A Admitting Unavailable HE, CHRISTY A Attending Unavailable JACQUES, [facility] Primary Care Unavailable HARIS OSBORN Attending Unavailable JACQUES, [facility] Primary Care Unavailable HE, CHRISTY A Attending Unavailable HE, CHRISTY A Referring Unavailable JACQUES, [facility] Primary Care Unavailable HE, CHRISTY A Attending Unavailable HE, CHRISTY A Referring Unavailable JACQUES, [facility] Primary Care Unavailable MARISELA CUEVAS Referring Unavailable JACQUES, [facility] Primary Care Unavailable JHON GROSS Admitting Unavail able SUGJHON Jaramillo Attending Unavail able SUGGJHON Referring Unavail able JACQUES, RICHIE L Primary Care Unavailable MANSOOR, CARLNEE U Consulting Unavailable STANLEY MCDERMOTT Attending Unavailable [...] JACQUES, RICHIE L Primary Care Unavailable JOHN GROSS Admitting Unavail able JHON GROSS Attending Unavail able JACQUES, RICHIE L Primary Care Unavailable ALBA CORREA Attending Unavailable JACQUES, RICHIE L Primary Care Unavailable JACQUES, RICHIE L Referring Unavailable JACQUES, RICHIE L Primary Care Unavailable JHON GROSS Admitting Unavail able JHON GROSS Attending Unavail able JACQUES, RICHIE L Primary Care Unavailable RENO KENYON Attending Unavailable JACQUES, RICHIE L Primary Care Unavailable RAYMOND SEPULVEDA Attending Unavailable JACQUES, RICHIE L Referring Unavailable JACQUES, RICHIE L Primary Care Unavailable JHON GROSS Admitting Unavail able JHON GROSS Attending Unavail able JACQUES, RICHIE L Primary Care Unavailable MANSOOR, CARLENE U Consulting Unavailable JAYY, AARTI Consulting Unavailable JACQUES, RICHIE L Referring Unavailable JACQUES, RICHIE L Primary Care Unavailable RAYMOND SEPULVEDA Attending Unavailable JACQUES, RICHIE L Referring Unavailable JACQUES, RICHIE L Primary Care Unavailable JACQUES, RICHIE L Primary Care Unavailable MANSOOR, CARLENE U Consulting Unavailable SURESH RODRÍGUEZ Admitting Unavailable ROYER RAE Attending Unavailable JHON GROSS Consulting Unavail able JAYY, AARTI Consulting Unavailable GINO FLOWER Referring Unavailable JACQUES, RICHIE L Primary Care Unavailable LEONARDO IBARRA Attending Unavailable JACQUES, RICHIE L Primary Care Unavailable RAYMOND SEPULVEDA Attending Unavailable JACQUES, RICHIE L Referring Unavailable JACQUES, RICHIE L Primary Care Unavailable CHAMP ORTIZ Attending Unavailable CHAMP ORTIZ Referring Unavailable JACQUES, RICHIE L Primary Care Unavailable Rick Pemberton Admitting Unavailable CHAMP ORTIZ Attending Unavailable CHAMP ORTIZ Referring Unavailable JACQUES, RICHIE L Primary Care Unavailable Valdemar Luz Admitting Unavailable JACQUES, RICHIE L Referring Unavailable JACQUES, RICHIE L Primary Care Unavailable RAYMOND SEPULVEDA Attending Unavailable JACQUES, RICHIE L Referring Unavailable JACQUES, RICHIE L Primary Care Unavailable SUGGJHON Admitting Unavail able SUGG, JHON CHEEMA Attending Unavail able JACQUES, RICHIE L Primary Care Unavailable CARLENE NOGUERA Consulting Unavailable AARTI HOPE Consulting Unavailable JACQUES, RICHIE L Referring Unavailable JACQUES, RICHIE L Primary Care Unavailable SUGG, JHON CHEEMA Admitting Unavail able SUGG, JHON CHEEMA Attending Unavail able JACQUES, RICHIE L Primary Care Unavailable JACQUES, RICHIE L Referring Unavailable JACQUES, RICHIE L Primary Care Unavailable JHON GROSS Admitting Unavail able SUGJHON Jaramillo Attending Unavail able JACQUES, RICHIE L Primary Care Unavailable HERMAN LUI Attending Unavailable JOSSY MOODY Attending Unavailable RESEARCH, GENERIC Attending Unavailable RESEARCH, GENERIC Attending Unavailable HERMAN LUI Attending Unavailable HERMAN LUI Attending Unavailable HERMAN LUI Attending Unavailable CLINT BAZAN Admitting Unavailable CLINT BAZAN Attending Unavailable RESEARCH, GENERIC Attending Unavailable RESEARCH, GENERIC Attending Unavailable RESEARCH, GENERIC Attending Unavailable RESEARCH, GENERIC Attending Unavailable HERMAN LUI Attending Unavailable JUHI ATWOOD Attending Unavailable KAVON VEGAS Referring Unavailable ADA JACQUES Referring Unavailabl SANDRITA Low Attending Unavailable SCOTT RODRIGUEZ Attending Unavailable HERMAN LUI Attending Unavailable RESEARCH, GENERIC Attending Unavailable RESEARCH, GENERIC Attending Unavailable HARIS LAY Admitting Unavailable GRACE VIVAR Attending Unavailable HERMAN LUI Attending Unavailable Allergies Allergy Classification Reported Allergen(s) Allergy Type Date of Onset Reaction(s) Facility (20 sources) Meperidine; Translations: [meperidine] Drug Allergy 9 anaphylaxis, Eruption of skin (disorder), Swelling, Unknown, Facial Swelling, Other: See Comments, Rash [facility] [place] (1 source) Adhesive bandage; Translations: [Adhesive Bandage] Propensity to adverse reactions (disorder) [facility] Repository (4 sources) Meperidine; Translations: [Demerol] Drug Allergy 3 [facility] (20 sources) Adhesive agent; Translations: [ADHESIVE] Drug allergy (disorder) 5 Rash [facility] Repository (20 sources) Meperidine Drug Allergy 3 Unknown [facility] (20 sources) Wound Dressing Adhesive Drug Allergy 3 Unknown, Rash, Itching [facility] (20 sources) DAPTOmycin; Translations: [daptomycin] Drug Allergy 4 Flushing (disorder), Flushing, Other: See Comments [facility] (20 sources) Doxycycline; Translations: [doxycycline] Drug Allergy 4 Rash [facility] (20 sources) tigecycline; Translations: [tigecycline] Drug Allergy 4 Vomitus (substance), Rash, Vomiting [facility] (20 sources) Daptomycin Propensity to adverse reactions 4 Other [facility] (20 sources) Tetracycline; Translations: [tetracycline] Drug Allergy 4 Rash [facility] (20 sources) tigecycline Drug Allergy 4 Hives [facility] (20 sources) Vancomycin; Translations: [VANCOMYCIN] Drug Allergy 4 Other (See Comments), Other: See Comments [facility] (20 sources) Adhesive agent Propensity to adverse reactions to drug 2 Rash [facility] (20 sources) Adhesive Tape-Silicones; Translations: [ADHESIVE TAPE-SILICONES] Propensity to adverse reactions to drug 4 Itching [facility] (3 sources) ceftaroline Drug Allergy 5 [facility] (20 sources) ceftaroline fosamil; Translations: [CEFTAROLINE FOSAMIL] Drug Allergy 5 Fever, Other: See Comments [facility] Work Phone: (1 source) DAPTOmycin Drug Allergy 5 [facility] Repository (1 source) Doxycycline Drug Allergy 5 [facility] (1 source) Meperidine Drug Allergy 5 [facility] (1 source) tigecycline Drug Allergy 5 [facility]ository (1 source) Vancomycin Drug Allergy 4 [facility] Repository Medications Current Medications Medication Drug Class(es) Dates Sig (Normalized) Sig (Original) abemaciclib 150 mg oral tablet (20 sources) Start: 04-18-2024 End: 05-12-2024 take 1 tablet by mouth twice daily VERZENIO 150 mg chemo tablet Indications: Breast wound, left, sequela Take 1 tablet by mouth 2 (two) times a day Holding currently as of 05/12/2024 05/12/2024 Active acetaminophen 325 mg oral tablet (20 sources) Start: 07-29-2024 take 2 tablets by mouth every six hours acetaminophen (TYLENOL) 325 mg tablet Take 650 mg by mouth q 6 HR. 07/29/2024 Active Start: 12-02-2023 End: 12-09-2023 take 1 tablet by mouth every six hours as needed for pain and fever 500 mg, oral, Every 6 hours PRN, mild pain - pain scale 1-3, temperature greater than 38 C, Starting on Thu12/09/23 at 0939, [Warning: Total Acetaminophen not to exceed more than 4 grams (4000 mg) in 24 hours] Start: 10-29-2023 End: 05-12-2024 take 2 tablets by mouth every eight hours as needed for pain acetaminophen (TYLENOL EXTRA STRENGTH) 500 mg tablet Take 2 tablets (1,000 mg total) by mouth every 8 (eight) hours as needed for pain. 10/29/2023 05/12/2024 Discontinued (Therapy completed) acetaminophen 325 mg / HYDROcodone bitartrate 5 mg oral tablet (20 sources) Opioid Agonist Start: 05-13-2023 End: 06-01-2024 HYDROcodone-acetaminophen ([place]) 5-325 MG tablet TAKE ONE TABLET BY MOUTH EVERY 6 HOURS NEEDED FOR PAIN SCALE 4 TO 6 05/13/2023 06/01/2024 Discontinued acetic acid 2.5 mg/ml irrigation solution (13 sources) Start: 08-18-2024 acetic acid 0.25 % irrigation Irrigate with 1,000 mL as directed in the morning. BID dressing changes with acetic acid dampened kerlix, lay into wound, cover with ABD pads, secure with ATTILA. 500 mL 5 08/18/2024 Active acyclovir 400 mg oral tablet (20 sources) Herpesvirus Nucleoside Analog DNA Polymerase Inhibitor, Herpes Simplex Virus Nucleoside Analog DNA Polymerase Inhibitor, Herpes Zoster Virus Nucleoside Analog DNA Polymerase Inhibitor Start: 09-01-2024 take 1 tablet by mouth twice daily acyclovir (ZOVIRAX) 400 mg tablet Take 1 tablet by mouth two times a day. 60 tablet 09/01/2024 Active 2 ml amikacin 250 mg/ml injection (20 sources) Aminoglycoside Antibacterial Start: 07-14-2024 amikacin (AMIKIN) 500 mg/2 mL soln 07/14/2024 Active Start: 07-14-2024 amikacin (AMIK IN) 500 mg/2 mL injection Infuse 3.6 mL (900 mg total) into a venous catheter 3 (three) times a week. 07/14/2024 Active Start: 05-22-2024 amikacin See I nstructions, Refills(s) 0 Start Date: 05/22/24 Status: Ordered Repeat number: 1 amoxicillin 875 mg / clavulanate 125 mg oral tablet (1 source) Penicillin-class Antibacterial Start: 11-11-2021 take 1 tablet by mouth every twelve hours Amoxicillin-Pot Clavulanate 875-125 MG 1 tablet Orally every 12 hrs for 7 days Oct, Active anastrozole 1 mg oral tablet (20 sources) Aromatase Inhibitor Start: 01-08-2024 anastrozole (ARIMIDEX) 1 mg tablet Take 1 mg by mouth. 01/08/2024 Active apixaban 5 mg oral tablet (20 sources) Factor Xa Inhibitor Start: 09-18-2023 End: 12-09-2023 ELIQUIS 5 mg tab(s) Take 5 mg by mouth. 09/18/2023 Active benzonatate 100 mg oral capsule (1 source) Non-narcotic Antitussive Start: 07-14-2022 End: 07-21-2022 take 1 capsule by mouth three times daily Tessalon 100 mg Cap 100 mg = 1 cap(s), Oral, TID, X 7 day(s), # 21 cap(s), Refills(s) 0, Pharmacy: [facility]/pharmacy #[id number], 180, cm, 07/14/22 14:05:00 EDT, Height/Length Dosing, 99.7, kg, 07/14/22 14:05:00 EDT, Weight Dosing Start Date: 07/14/22 Stop Date: 07/21/22 Status: Ordered capecitabine 500 mg oral tablet (20 sources) Nucleoside Metabolic Inhibitor Start: 08-03-2024 capecitabine (XELODA) 500 mg tablet Take 1,500 mg by mouth. 08/03/2024 Active Start: 10-13-2023 End: 03-18-2024 capecitabine (XELODA) 500 mg chemo tablet Take by mouth after surgery 10/13/2023 03/18/2024 Discontinued (Therapy completed) carvedilol 12.5 mg oral tablet (20 sources) alpha-Adrenergic Jay, beta-Adrenergic Jay Start: 07-14-2024 carvedilol (CORE G) 12.5 mg tablet Take 12.5 mg by mouth. 07/14/2024 Active Start: 05-01-2022 End: 01-25-2024 take 1 tablet by mouth in the morning carvedilol (Coreg) 25 MG tablet Take 25 mg by mouth in the morning and 25 mg in the evening. 05/01/2022 01/25/2024 Discontinued (Therapy completed) Coreg Active ceftaroline fosamil 600 mg injection (1 source) Start: 05-22-2024 inject 600 mg intravenously every eight hours Teflaro 600 mg intravenous injection 600 mg, IV, q8hr, Refills(s) 0 Start Date: 05/22/24 Status: Ordered Repeat number: 1 Chlorthalidone (20 sources) Thiazide-like Diuretic Start: 04-06-2023 chlorthalidone as directed, Refills(s) 0 Start Date: 04/06/23 Status: Ordered Repeat number: 1 Start: 04-06-2023 chlorthalidone as directed, Refills(s) 0 Start Date: 04/06/23 Status: Ordered Start: 03-03-2023 End: 06-01-2024 take 1 tablet by mouth in the morning chlorthalidone (Hygroton) 25 MG tablet Take 25 mg by mouth in the morning. 03/03/2023 06/01/2024 Discontinued Start: 03-03-2023 End: 03-18-2024 take 0.5 tablet by mouth once daily chlorthalidone (HYGROTON) 25 mg tablet Take 0.5 tablets (12.5 mg total) by mouth daily. 03/03/2023 03/18/2024 Discontinued (Therapy completed) Start: 07-21-2022 take [...] 500 mg / imipenem 500 mg injection (20 sources) Penem Antibacterial, Renal Dehydropeptidase Inhibitor Start: 08-04-2024 imipenem-cilastatin (PRIMAXIN) 500 mg injection Bid 08/04/2024 Active Start: 08-04-2024 imipenem-cilas tatin (PRIMAXIN) 500 mg injection 08/04/2024 Active Start: 05-22-2024 take 1000 mg intrave nously every twelve hours Imipenem-cilastatin 500 mgIVPB 1,000 mg, IV, q12hr, Refills(s) 0 Start Date: 05/22/24 Status: Ordered Repeat number: 1 Start: 03-29-2024 End: 07-15-2024 imipenem-cilastatin (PRIMAXI N) 500 mg injection Current inpatient at [facility] receiving iv antibiotics 03/29/2024 07/15/2024 Discontinued (Duplicate Listing) ciprofloxacin 500 mg oral tablet (10 sources) [...] 12/03/23 at 1200, Indication: Nontuberculous mycobacterial infection (met[facility] editor drug) CLOFAZIMINE, BULK, MISC (20 sources) CLOFAZIMINE, BUL K, MISC Take 100 mg by mouth. Active take 1 capsule by mouth in the m orning CLOFAZIMINE, BULK, MISC Take 100 mg by mouth in the morning. Capsule for mycobacterial infection. Active take 1 capsule by mouth in the m orning CLOFAZIMINE, BULK, MISC Take 100 mg by mouth in the morning. Capsule for mycobacterial infection. Suspended take 1 capsule by mouth at bedti tx CLOFAZIMINE, BULK, MISC Take 50 mg by mouth in the morning and at bedtime. Capsule for mycobacterial infection Suspended take 1 capsule by mouth at bedti tx CLOFAZIMINE, BULK, MISC Take 50 mg by mouth in the morning and at bedtime. Capsule for mycobacterial infection Active cyclobenzaprine hydrochloride 10 mg oral tablet (20 sources) Muscle Relaxant Start: 04-06-2023 cyclobenzaprin e as directed, Refills(s) 0 Start Date: 04/06/23 Status: Ordered Repeat number: 1 Start: 04-06-2023 cyclobenzaprin e as directed, Refills(s) 0 Start Date: 04/06/23 Status: Ordered Start: 12-01-2022 End: 09-23-2024 take 1 tablet by mouth once daily in the evening cyclobenzaprine (FLEXERIL) 10 mg tablet Take 1 tablet by mouth every evening. 04/28/2023 Active End: 06-01-2024 take 1 tablet by mouth three times daily as needed cyclobenzaprine (Flexeril) 10 MG tablet Take 10 mg by mouth 3 (three) times a day as needed 06/01/2024 Discontinued dexamethasone 2 mg oral tablet (20 sources) Corticosteroid Start: 10-08-2024 dexAMETHasone (DECADRON) 2 mg tablet Take 4mg (2 tablets) by mouth once a day for 4 days, then take 2mg (1 tablet) once a day for 4 days, then stop. Patient should start on October 08, 2024. 12 tablet 10/08/2024 Active Start: 09-08-2024 End: 09-18-2024 dexAMETHasone (DECADRON) 2 m g tablet Take 2 tablets by mouth daily with breakfast for 5 days, THEN 1 tablet daily with breakfast for 5 days. Patient should start on September 08, 2024. 15 tablet 09/08/2024 09/18/2024 Active Start: 09-07-2024 End: 09-07-2024 dexAMETHasone 4 mg tab(s) (DECADRON) Start: 09-07-2024 End: 09-07-2024 take 1 dose by mouth once 4 mg, ORAL, ONCE, 1 dose, On Thu09/07/24 at 1130 Start: 09-01-2024 End: 10-01-2024 take 1 tablet by mouth once daily at breakfast dexAMETHasone (DECADRON) 4 mg tablet Take 1 tablet by mouth daily with breakfast. 30 tablet 09/01/2024 10/01/2024 Active Start: 04-21-2023 End: 06-01-2024 dexAMETHasone (Decadron) 1 M G tablet TAKE ONE TABLET BY MOUTH TWICE A DAY ON DAYS 3-6 AFTER CHEMOTHERAPY FOR FATIGUE 04/21/2023 06/01/2024 Discontinued diazePAM 5 mg oral tablet (20 sources) Benzodiazepine Start: 05-12-2024 End: 05-22-2024 diazePAM (VALIUM) 5 mg tablet Take 1 tablet (5 mg total) by mouth every 12 (twelve) hours as needed for anxiety or muscle spasms (Give 30min prior to dressing change) for up to 10 days for anxiety 05/12/2024 Active Start: 11-11-2023 End: 12-09-2023 take 1 tablet [...] 11/11/2023 12/09/2023 Discontinued (Stop Taking at Discharge) docusate sodium 100 mg oral capsule (20 sources) Start: 07-29-2024 take 2 capsules by mouth once daily as needed for constipation docusate sodium (COLACE) 100 mg capsule Take 2 capsules (200 mg total) by mouth daily as needed for constipation. 07/29/2024 Active 0.4 ml enoxaparin sodium 100 mg/ml prefilled syringe (7 sources) Low Molecular Weight Heparin Start: 10-06-2024 enoxaparin (LOVENOX) 40 mg/0.4 mL syringe 10/06/2024 Active Start: 10-19-2023 End: 11-30-2023 inject 0.4 mL by subcutaneous injection in the morning enoxaparin (LOVENOX) 40 mg/0.4 mL syringe Inject 0.4 mL (40 mg total) under the skin in the morning. 10/19/2023 11/30/2023 Discontinued (Stop Taking at Discharge) ertapenem 1000 mg injection (5 sources) Penem Antibacterial Start: 02-11-2024 take 1 g intravenously twice daily Ertapenem 1 gram recon soln Active 1 GM IV Twice daily February 11, 2024 1:00am famotidine 20 mg oral tablet (20 sources) Histamine-2 Receptor Antagonist Start: 09-08-2024 End: 10-16-2024 famotidine (PEPCID) 20 mg tablet Take 1 tablet by mouth once daily for 8 days. Patient should start on October 08, 2024. 8 tablet 10/08/2024 10/16/2024 Active Start: 09-01-2024 End: 10-01-2024 take 1 tablet by mouth once daily famotidine (PEPCID) 40 mg tablet Take 1 tablet by mouth once daily. 30 tablet 09/01/2024 10/01/2024 Active FeroSul 325 mg oral tablet (3 sources) Start: 07-14-2022 FeroSul 325 mg oral tablet Refills(s) 0 Start Date: 07/14/22 Status: Ordered ferrous sulfate 325 mg oral tablet (20 sources) Start: 08-10-2024 FeroSuL 325 mg (65 mg iron) tablet in the morning and in the evening. Take with meals. 08/10/2024 Active Start: 03-07-2022 End: 12-09-2023 take 1 tablet by mouth in the morning FeroSul 325 (65 Fe) MG tablet TAKE 1 TABLET (325 MG TOTAL) BY MOUTH IN THE MORNING. 06/04/2022 Active take 1 tablet by haydee th twice daily at mealtime FEROSUL 325 mg (65 mg iron) tablet Take 1 tablet by mouth two times a day with meals. Active fluticasone propionate 0.05 mg/actuat metered dose nasal spray (20 sources) Corticosteroid Start: 04-06-2023 End: 03-18-2024 Flonase 0.05 mg/inh [place] 1 spray(s), Nasal, BID, Refill(s) 0 Start Date: 2/5/24 Status: Ordered End: 06-01-2024 fluticasone (Flonase) 50 MCG /ACT nasal spray 1 (one) time each day at the same time 06/01/2024 Discontinued take 1 spray(s) nasa l route once daily fluticasone propionate (FLONASE) 50 mcg/actuation nasal spray 1 spray in each nostril Nasally Once a day Active folic acid 1 mg oral tablet (20 sources) Start: 05-12-2024 End: 06-11-2024 folic acid 1 mg tablet Take 1 mg by mouth. 05/22/2024 Active gabapentin 300 mg oral capsule (20 sources) Anti-epileptic Agent Start: 05-02-2023 End: 12-09-2023 take 1 capsule by mouth twice daily gabapentin (NEURONTIN) 300 mg capsule Take 300 mg by mouth two times a day. 05/02/2023 Active hydroCHLOROthiazide 12.5 mg oral tablet (20 sources) Thiazide Diuretic End: 06-01-2024 hydroCHLOROthiazide (HYDRODiuril) 12.5 MG tablet 1 (one) time each day at the same time 06/01/2024 Discontinued hydroCHLOROthiazide 12.5 mg / lisinopril 20 mg oral tablet (20 sources) Thiazide Diuretic, Angiotensin Converting Enzyme Inhibitor Start: 06-17-2022 End: 06-01-2024 take 1 tablet by mouth in the morning lisinopril-hydroCHLORO thiazide 20-12.5 MG tablet Take 1 tablet by mouth in the morning. 06/17/2022 06/01/2024 Discontinued Start: 11-27-2021 End: 10-16-2023 take 1 tablet by mouth every twenty-four hours lisinopril-hydroCHLOROthiazide (PRINZIDE,ZESTORETIC) 20-12.5 mg per tablet Take 1 tablet by mouth daily. 90 tablet 1 11/27/2021 10/16/2023 Discontinued (Therapy completed) End: 06-01-2024 lisinopril-hydroCHLOROthiazi de 20-25 MG tablet 1 (one) time each day at the same time 06/01/2024 Discontinued hydrOXYzine hydrochloride 25 mg oral tablet (20 sources) Antihistamine Start: 05-12-2024 End: 07-25-2025 hydrOXYzine HCl (ATARAX) 25 mg tablet Take 25 mg by mouth. 05/12/2024 Active imipenem-cilastatin 1,000 mg in sodium chloride 0.9 % 250 mL IVPB (20 sources) Start: 05-12-2024 End: 08-10-2024 take 1000 mg intravenously every twelve hours imipenem-cilastat in 1,000 mg in sodium chloride 0.9 % 250 mL IVPB Infuse 1,000 mg into a venous catheter every 12 (twelve) hours for 90 days. 05/12/2024 08/10/2024 Suspended Start: 05-12-2024 End: 08-10-2024 take 1000 mg intravenously every twelve hours imipenem-cilastatin 1,000 mg in sodium chloride 0.9 % 250 mL IVPB Infuse 1,000 mg into a venous catheter every 12 (twelve) hours for 90 days. 05/12/2024 08/10/2024 Active imipenem-cilastatin 500 mg in sodium chloride [...] on antibiotics. 1 each 12/09/2023 01/15/2024 Active imipenem/cilastatin sodium (IMIPENEM-CILASTATIN INTRAVENOUS) (20 sources) Start: 05-22-2024 inject 1000 mg intravenously twice daily imipenem/cilastatin sodium (IMIPENEM-CILASTATIN INTRAVENOUS) Inject 1,000 mg intravenously two times a day. 05/22/2024 Active Start: 05-22-2024 imipenem/cilas tatin sodium (IMIPENEM-CILASTATIN INTRAVENOUS) Inject 1,000 mg intravenously. 05/22/2024 Active linezolid 600 mg oral tablet (10 [...] Angiotensin Converting Enzyme Inhibitor Start: 04-10-2023 End: 06-01-2024 take 1 tablet by mouth once daily lisinopril 20 MG tablet Take 20 mg by mouth Daily 04/28/2023 06/01/2024 Discontinued Start: 07-21-2022 take 1 tablet by haydee once daily Lisinopril 20 MG Oral Tablet TAKE 1 TABLET DAILY. Quantity: 90 Refills: 3 Ordered: 21-Jul-2022 Shanon Tyler MD Start : 21-Jul-2022 Active Losartan (1 source) Angiotensin 2 Receptor Jay Cozaar Active magnesium oxide 400 mg oral tablet (20 sources) Start: 02-11-2024 take 1 tablet by mouth once daily Magnesium Oxide (Magox) 400 mg (241.3 mg magnesium) tablet Active 400 MG PO Daily February 11, 2024 1:00am Start: 12-05-2023 End: 12-09-2023 take 400 mg by mouth twice daily 400 mg, oral, 2 times daily, First dose on 12/05/23 at 2100 mecobalamin (5 sources) Start: 02-11-2024 mecobalamin (v itamin B12) Active PO February 11, 2024 1:00am Start: 02-11-2024 mecobalamin (v itamin B12) Active PO February 11, 2024 12:00am metoprolol tartrate 100 mg oral tablet (20 sources) beta-Adrenergic Jay Start: 05-22-2024 take 1 tablet by mouth once daily metoprolol tartrate 100 mg Tab 100 mg = 1 tab(s), Oral, Daily, Refills(s) 0 Start Date: 3/23/25 Status: Ordered Repeat number: 1 Start: 02-11-2024 Metoprolol Suc cinate (Toprol Xl) 25 mg tablet extended release 24 hr Active 100 MG PO Daily February 11, 2024 3:26pm Start: 12-05-2023 End: 12-09-2023 100 mg, oral, [...] Do not crush or chew. Start: 09-09-2023 End: 07-14-2024 take 1 tablet by mouth every twenty-four hours in the morning metoprolol succinate XL (TOPROL XL) 100 mg 24 hr tablet Indications: hypertension Take 1 tablet (100 mg total) by mouth in the morning. Indications: high blood pressure. 09/09/2023 07/14/2024 Discontinued (Therapy completed) Start: 04-06-2023 End: 10-16-2023 metoprolol (LOPRESSOR) 5 mg/ 5 mL injection as directed, Refills(s) 0 04/06/2023 10/16/2023 Discontinued (Therapy completed) Start: 04-06-2023 metoprolol as directed, Refills(s) 0 Start Date: 04/06/23 Status: Ordered Repeat number: 1 Start: 04-06-2023 metoprolol as directed, Refills(s) 0 Start Date: 04/06/23 Status: Ordered Start: 07-21-2022 take 1 tablet by haydee once daily Metoprolol Succinate ER 100 MG Oral Tablet Extended Release 24 Hour Take 1 tablet daily Quantity: 90 Refills: 3 Ordered: 21-Jul-2022 Shanon Tyler MD Start : 21-Jul-2022 Active Start: 03-17-2018 End: 02-11-2024 Metoprolol Succinate (Toprol Xl) 25 mg Tablet Extended Release 24 Hr Discontinued March 17, 2018 1:00am February 11, 2024 3:31pm naloxone (NARCAN) 4 mg/actua tion spray,non-aerosol nasal spray (20 sources) Start: 06-15-2024 naloxone (NARC AN) 4 mg/actuation spray,non-aerosol nasal spray Administer 1 spray (4 mg total) into alternating nostrils as needed for opioid reversal. 1 each 06/15/2024 Suspended Start: 06-15-2024 naloxone (NARC AN) 4 mg/actuation spray,non-aerosol nasal spray Administer 1 spray (4 mg total) into alternating nostrils as needed for opioid reversal. 1 each 06/15/2024 Active naloxone 4 mg/actuation nasal spray (NARCAN) (7 sources) Start: 06-15-2024 take 4 mg nasal route every twenty-four hours as needed naloxone 4 mg/actuation nasal spray (NARCAN) Use 4 mg in the nose at bedtime as needed. 06/15/2024 Active nystatin 019950 unt/ml oral suspension (1 source) Polyene Antifungal Start: 09-21-2024 nystatin (MYCOSTATIN) 100,000 unit/mL suspension TAKE 5 ML SWISH AND SPIT FOR THRUSH, FOUR TIMES A DAY 09/21/2024 Active omadacycline 150 mg oral tablet (20 sources) omadacycline (NUZYRA) 150 mg tablet Take 300 mg by mouth. Active oxyCODONE hydrochloride 10 mg oral tablet (20 sources) Opioid Agonist Start: 06-15-2024 End: 06-22-2024 take 1 tablet by mouth every six hours as needed oxyCODONE IR (ROXICODONE) 10 mg tab Take 1 tablet by mouth every 6 hours as needed. 06/15/2024 Active Start: 05-12-2024 End: 08-05-2024 take 1 tablet by mouth every four hours as needed for pain oxyCODONE IR (ROXICODONE) 5 mg immediate release tablet Take 1 tablet (5 mg total) by mouth every 4 hours as needed for pain for up to 7 days. Max Daily Amount 30 mg 05/12/2024 Active Start: 11-28-2023 End: 12-09-2023 take 1 tablet [...] 20 mg 28 tablet 10/29/2023 11/05/2023 Active predniSONE 5 mg oral tablet (20 sources) End: 06-01-2024 take 1 tablet by mouth in the morning predniSONE (Deltasone) 5 MG tablet Take 5 mg by mouth in the morning. 06/01/2024 Discontinued prochlorperazine 10 mg oral tablet (20 sources) Phenothiazine Start: 04-21-2023 prochlorperazine (COMPAZINE) 10 mg tablet 04/21/2023 Active pyridoxine (5 sources) Start: 02-11-2024 pyridoxine (vitamin B6) Active PO February 11, 2024 1:00am Start: 02-11-2024 pyridoxine (vi tamin B6) Active PO February 11, 2024 12:00am sertraline 50 mg oral tablet (5 sources) Serotonin Reuptake Inhibitor Start: 09-23-2024 take 1 tablet by mouth in the morning sertraline (ZOLOFT) 50 mg tablet Indications: Reactive depression , Anxiety Take 1 tablet (50 mg total) by mouth in the morning. 30 tablet 1 09/23/2024 Active 1000 ml sodium chloride 9 mg/ml injection (20 sources) Start: 04-15-2024 0.9 % sodium chloride (NACL 0.9%) infusion 04/15/2024 Active Start: 12-02-2023 End: 12-09-2023 3 mL, intravenous, [...] On Thu12/02/23 at 2220, For 1 dose spironolactone 25 mg oral tablet (20 sources) Aldosterone Antagonist Start: 08-25-2024 End: 09-19-2024 take 0.5 tablet by mouth in the morning spironolactone (ALDACTONE) 25 mg tablet Take 0.5 tablets (12.5 mg total) by mouth in the morning. 45 tablet 1 09/20/2024 Active Start: 04-06-2023 spironolactone as directed, Refills(s) 0 Start Date: 04/06/23 Status: Ordered Repeat number: 1 Start: 04-06-2023 spironolactone as directed, Refills(s) 0 Start Date: 04/06/23 Status: Ordered Start: 03-26-2023 spironolactone (ALDACTONE) 25 mg tablet Take 12.5 mg by mouth once daily. 03/26/2023 Active Start: 03-26-2023 End: 08-25-2024 take 1 tablet by mouth in the morning spironolactone (ALDACTONE) 25 mg tablet Take 1 tablet (25 mg total) by mouth in the morning. 90 tablet 1 07/14/2024 08/25/2024 Discontinued sulfamethoxazole 800 mg / trimethoprim 160 mg oral tablet (13 sources) Dihydrofolate Reductase Inhibitor Antibacterial, Sulfonamide Antimicrobial Start: 09-02-2024 End: 09-30-2024 take 1 tablet by mouth once sulfamethoxazole-trimethoprim (BACTRIM DS) 800-160 mg per tablet Take 1 tablet by mouth every Thursday, Thursday, and Thursday for 28 days. 12 tablet 09/02/2024 09/30/2024 Active vitamin B12 (20 sources) Vitamin B12 Start: 05-22-2024 Vitamin B12 Oral, Daily, Refills(s) 0 Start Date: 05/22/24 Status: Ordered Repeat number: 1 Start: 12-06-2023 End: 12-09-2023 cyanocobalamin (VITAMIN B-12 ) 1,000 mcg tab Take 1,000 mcg by mouth. 12/10/2023 Active Start: 12-05-2023 End: 12-05-2023 inject 1000 ug by intramuscular injection once 1,000 mcg, intramuscular, Once, On 12/05/23 at 1000, For 1 dose Vitamin B6 (20 sources) Start: 05-22-2024 Vitamin B6 Ora l, Daily, Refills(s) 0 Start Date: 05/22/24 Status: Ordered Repeat number: 1 Start: 03-16-2024 pyridoxine, vi tamin B6, (VITAMIN B6) 50 mg tablet Take 50 mg by mouth. 03/16/2024 Active Completed/Discontinued Medications Medication Drug Class(es) Dates Sig (Normalized) Sig (Original) acetaminophen 250 mg / aspirin 250 mg [...] needed for wheezing and dyspnea Start: 03-07-2022 End: 05-12-2024 take 3 mL by inhalation every six hours as needed for wheezing albuterol (PROVENTIL,VENTOLIN) 2.5 mg /3 mL (0.083 %) nebulizer solution Indications: Mild intermittent asthma without complication Inhale 3 mL (2.5 mg total) by nebulization every 6 (six) hours as needed for wheezing. 75 mL 1 03/07/2022 05/12/2024 Discontinued (Therapy completed) Start: 11-11-2021 take 2 puff(s) by in halation every four hours as needed Albuterol Sulfate HFA 108 (90 Base) MCG/ACT 2 puffs as needed Inhalation every 4 hrs Oct, Active ALPRAZolam 0.5 mg oral tablet (2 sources) Benzodiazepine Start: 09-07-2024 End: 09-07-2024 ALPRAZolam 0.5 mg tab(s) (XANAX) Start: 09-07-2024 End: 09-07-2024 take 0.5 mg by mouth once 0.5 mg, ORAL, ONCE, 1 dose, On Thu09/07/24 at 1130 amikacin in sodium chloride 0.9 % 100 mL IVPB (20 sources) End: 07-15-2024 take 750 mg intravenously three times weekly amikacin in sodium chloride 0.9 % 100 mL IVPB Infuse into a venous catheter 3 (three) times a week. 750 mg- hasn't started yet 07/15/2024 Discontinued (Duplicate Listing) take 750 mg intravenously three times weekly amikacin in sodium chloride 0.9 % 100 mL IVPB Infuse into a venous catheter 3 (three) times a week. 750 mg- hasn't started yet Suspended take 750 mg intravenously three times weekly amikacin in sodium chloride 0.9 % 100 mL IVPB Infuse into a venous catheter 3 (three) times a week. 750 mg- hasn't started yet Active noyvkdsn-ayhuvrfko-kgomxfd H MB (JOSE) 7-7-1.5 gram powder in packet (18 sources) Start: 05-12-2024 End: 07-14-2024 ojommrbo-ngwnznjaz-cemjwjk H MB (JOSE) 7-7-1.5 gram powder in packet Take 1 packet twice daily with a full glass of water. 30 each 05/12/2024 07/14/2024 Discontinued (Discontinued by another clinician) Start: 05-12-2024 arginine-gluta mine-calcium HMB (JOSE) 7-7-1.5 gram powder in packet Take 1 packet twice daily with a full glass of water. 30 each 05/12/2024 Suspended Start: 05-12-2024 arginine-gluta mine-calcium HMB (JOSE) 7-7-1.5 gram powder in packet Take 1 packet twice daily with a full glass of water. 30 each 05/12/2024 Active calcium chloride 0.0014 meq/ml / potassium [...] administration in small hand veins. VESICANT (RED) cefTAROLINE 600 mg in sodium chloride 0.9 % 50 mL IVPB W/ADAPTER (7 sources) Start: 05-12-2024 End: 06-11-2024 take 600 mg intravenously every eight hours cefTAROLINE 600 mg in sodium chloride 0.9 % 50 mL IVPB W/ADAPTER Infuse 600 mg into a venous catheter every 8 (eight) hours for 90 days. 05/12/2024 06/11/2024 Discontinued (Allergic response) Start: 05-12-2024 End: 08-10-2024 take 600 mg intravenously every eight hours cefTAROLINE 600 mg in sodium chloride 0.9 % 50 mL IVPB W/ADAPTER Infuse 600 mg into a venous catheter every 8 (eight) hours for 90 days. 05/12/2024 08/10/2024 Active cefuroxime 250 mg oral tablet (9 sources) Cephalosporin Antibacterial Start: 03-17-2018 End: 02-11-2024 Cefuroxime Axetil 250 mg Tablet Discontinued TABLET March 17, 2018 1:00am February 11, 2024 3:30pm Start: 03-17-2018 Cefuroxime Axe til Active TABLET March 17, 2018 1:00am citalopram 10 mg oral tablet (9 sources) Serotonin Reuptake Inhibitor Start: 03-17-2018 End: 02-11-2024 Citalopram 10 mg Tablet Discontinued TABLET March 17, 2018 1:00am February 11, 2024 3:30pm Start: 03-17-2018 Citalopram Act hallie TABLET March 17, 2018 1:00am diphenhydrAMINE (1 source) Histamine-1 Receptor Antagonist Start: 12-07-2023 End: 12-09-2023 take 25 mg intravenously every six hours as needed 25 mg, intravenous, Every 6 hours PRN, itching, Starting on Thu12/07/23 at 0911, Look-alike/sound-alike medication - verify indication for use. docusate sodium 50 mg / sennosides, senior living 8.6 mg oral tablet (1 source) Start: 12-02-2023 End: 12-09-2023 take 1 tablet by mouth every twelve hours as needed for constipation 1 tablet, oral, Every 12 hours PRN, constipation, Starting on Thu12/02/23 at 2313 doxycycline hyclate 100 mg oral capsule (1 source) Tetracycline-cla ss Drug Start: 12-09-2023 End: 12-09-2023 100 mg, [...] daily at bedtime. 03/18/2024 Discontinued (Therapy completed) ertapenem 1,000 mg in sodium chloride 0.9 [...] is REQUIRED to use this drug at [facility], [facility] and [facility] per [facility]-approved policy # MM 1.15: Yes iron sucrose [...] 5 mg/ml injectable solution (1 source) beta-Adrenergic Jay Start: 12-03-2023 End: 12-09-2023 take 10 mg intravenously every four hours as needed 10 mg, intravenous, Every 4 hours PRN, high blood pressure, Systolic blood pressure more than 160 hold for heart rate less than 60. Use hydralazine 1st, Starting on Sintia 12/03/23 at 1410, Look-alike/sound-alike medication - verify indication for use. lidocaine 25 mg/ml / prilocaine 25 mg/ml topical cream (20 sources) Antiarrhythmic, Amide Local Anesthetic Start: 05-12-2023 End: 07-14-2024 lidocaine-prilocaine (EMLA) cream Apply 1 Application topically as needed for pain. 05/12/2023 07/14/2024 Discontinued (Therapy completed) Start: 05-12-2023 End: 06-01-2024 lidocaine-prilocaine (Emla) 2.5-2.5 % cream APPLY QUARTER SIZE AMOUNT TO AREA OF [facility], 30 MINS BEFORE CHEMO BLOOD DRAW 05/12/2023 06/01/2024 Discontinued Magic Mouthwash W/Lidocaine 240 Ml Bottle 240 mL bottle (5 sources) Start: 02-03-2024 End: 04-26-2024 take 10 mL by mouth four times daily Magic Mouthwash W/Lidocaine 240 Ml Bottle 240 mL bottle Discontinued 10 ML PO Four times daily 240 February 03, 2024 1:00am April 26, 2024 4:06pm Take 10ml by mouth, four times daily, SWISH AND SWALLOW. Start: 02-03-2024 End: 04-26-2024 take 10 mL [...] Active mometasone furoate 1 mg/ml topical cream (6 sources) Corticosteroid Start: 12-29-2023 End: 04-26-2024 Mometasone 0.1 % cream Discontinued 1 APPLIC TOPICAL Daily 45 December 29, 2023 12:00am April 26, 2024 4:07pm Apply to radiation site, once a day, AFTER radiation treatment. 1 ml morphine sulfate 2 mg/ml prefilled syringe (1 source) Opioid Agonist Start: 12-03-2023 End: 12-03-2023 2 mg, intravenous, Once, On Sintia 12/03/23 at 0630, For 1 dose, Look-alike/sound- alike medication - verify indication for use. 2 ml ondansetron 2 mg/ml injection (1 source) Serotonin-3 Receptor Antagonist Start: 12-02-2023 End: 12-09-2023 take 4 mg intravenously every four hours as needed for nausea and vomiting 4 mg, intravenous, Every 4 hours PRN, nausea, vomiting, Starting on Thu12/02/23 at 2313, Administer over 2-5 minutes. potassium chloride 10 meq oral tablet (20 sources) Start: 05-22-2024 take 2 tablets by mouth twice daily potassium chloride 10 mEq ER Tab 20 mEq = 2 tab(s), Oral, BID, Refills(s) 0 Start Date: 05/22/24 Status: Ordered Repeat number: 1 Start: 02-11-2024 Potassium Chlo ride 10 mEq tablet extended release Active 40 MEQ PO February 11, 2024 1:00am Start: 12-06-2023 End: 12-09-2023 20 mEq, oral, Daily, First d ose on 12/06/23 at 0900, Hold for potassium more than 4.5 Do not crush or chew. Start: 12-03-2023 End: 12-09-2023 potassium chloride (KLOR-CON M 20) CR tablet 20-60 mEq Start: 12-03-2023 End: 12-03-2023 20-40 mEq, oral, As needed, potassium supplementation, Starting on Thu12/03/23 at 0602, Progress to oral potassium replacement [...] Start: 03-22-2023 take 1 tablet by haydee th twice daily at bedtime Start: 08-18-2022 take 1 tablet by haydee th once daily Klor-Con M20 20 MEQ Oral Tablet Extended Release Take 1 tablet daily Quantity: 90 Refills: 3 Ordered: 18-Aug-2022 Shanon Tyler MD Start : 18-Aug-2022 Active take 2 tablets by mo akh twice daily potassium chloride (K-TAB) 10 mEq tablet TAKE TWO TABLETS BY MOUTH TWICE A DAY Active End: 10-16-2023 potassium chloride (K-TAB,KL OR-CON) 10 MEQ CR tablet Take 1 tablet (10 mEq total) by mouth in the morning. 10/16/2023 Discontinued (Dose adjustment) silver sulfADIAZINE 10 mg/ml topical cream (5 sources) Sulfonamide Antibacterial Start: 02-10-2024 End: 04-26-2024 Silver Sulfadiazine (Silvadene) 1 % cream Discontinued 1 APPLIC TOPICAL Twice daily 50 February 10, 2024 1:00am April 26, 2024 4:07pm Apply to open areas on radiation site, twice a day until healed. sodium phosphate 20 mmol in sodium chloride 0.9 % 250 mL IVPB (1 source) Start: 12-03-2023 End: 12-09-2023 sodium phosphate 20 mmol in sodium chloride 0.9 % 250 mL IVPB spironolactone-niacina mide 5-4 % gel (7 sources) Start: 04-06-2023 End: 10-16-2023 spironolactone-niacin amide 5-4 % gel as directed, Refills(s) 0 04/06/2023 10/16/2023 Discontinued (Dose adjustment) Start: 04-06-2023 spironolactone -niacinamide 5-4 % gel as directed, Refills(s) 0 04/06/2023 Active tedizolid phosphate 200 mg oral tablet (15 sources) Oxazolidinone Antibacterial Start: 02-11-2024 End: 07-14-2024 take 1 tablet by mouth in the morning tedizolid (SIVEXTRO) 200 mg tablet tablet Take 1 tablet (200 mg total) by mouth in the morning. 03/16/2024 05/12/2024 Discontinued (Therapy completed) traZODone hydrochloride 50 mg oral tablet (20 sources) Serotonin Reuptake Inhibitor Start: 03-17-2018 End: 06-01-2024 Trazodone 50 mg Tablet Discontinued TABLET March 17, 2018 1:00am February 11, 2024 3:31pm Start: 03-17-2018 End: 03-18-2024 take 1 tablet by mouth once daily traZODone (DESYREL) 50 mg tablet TAKE ONE TABLET BY MOUTH ONCE DAILY AT NIGHT 90 tablet 1 09/15/2023 03/18/2024 Discontinued (Therapy completed) traZODone HCl Ac tive vancomycin 1,500 mg [...] Date Documented Da te Episodic/Chronic Administrative/social admission (2 sources) Patient encounter status; Translations: [Other specified counseling] 02-15-2024 Episodic Anxiety disorders (2 sources) Anxiety; Translations: [Anxiety disorder, unspecified] 09-23-2024 Chronic Asthma (20 sources) Exercise-induced asthma; Translations: [Exercise induced bronchospasm] Onset: 03-07-2022 03-07-2022 Chronic Bacterial infection; unspecified site (20 sources) 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; Translations: [Other mycobacterial infections] Onset: 03-03-2024 02-11-2024 Episodic Cancer of breast (20 sources) Infiltrating duct carcinoma of breast; Translations: [Malignant neoplasm of unspecified site of right female breast] Onset: 04-09-2023 04-02-2023 Chronic Comment on above: 04/02/2023 IDC, 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 (4 sources) History of malignant neoplasm of breast; Translations: [Personal history of malignant neoplasm of breast] Onset: 09-16-2024 03-10-2024 Episodic Cardiac dysrhythmias (20 sources) Cardiac arrhythmia; Translations: [Cardiac arrhythmia, unspecified] Onset: 11-27-2021 03-30-2020 Chronic Cataract (20 sources) Secondary cataract of right eye; Translations: [Unspecified secondary cataract] Onset: 01-31-2022 01-31-2022 Chronic Deficiency and other anemia (1 source) Other pancytopenia; Translations: [Other pancytopenia] Onset: 05-02-2024 Chronic Deficiency and other anemia (20 sources) Iron deficiency anemia; Translations: [Iron deficiency anemia, unspecified] Onset: 03-07-2022 03-07-2022 Episodic Essential hypertension (20 sources) Hypertensive disorder; Translations: [Unspecified essential hypertension] Onset: 12-23-2019 04-06-2023 Chronic Headache; including migraine (5 sources) Migraine 04-06-2023 Chronic Headache; including migraine (1 source) Headache; Translations: [Headache, unspecified] Onset: 05-22-2024 Episodic Hypertension with complications and secondary hypertension (20 sources) 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; Translations: [Hypertensive chronic kidney disease with stage 1 through stage 4 chronic kidney disease, or unspecified chronic kidney disease] Onset: 05-24-2021 11-27-2021 Chronic Immunity disorders (2 sources) Immunodeficiency, unspecified; Translations: [Immunodeficiency, unspecified] Onset: 05-23-2024 Chronic Immunizations and screening for infectious disease (1 source) Encounter for screening for human papillomavirus (HPV); Translations: [ENC SCREENING HUMAN PAPILLOMAVIRUS] Onset: 12-29-2021 Episodic Joint disorders and dislocations; trauma-related (20 sources) Derangement of right knee; Translations: [Unspecified internal derangement of right knee] Onset: 11-27-2021 11-27-2021 Chronic Malignant neoplasm without specification of site (18 sources) Malignant neoplastic disease; Translations: [Malignant (primary) neoplasm, unspecified] Onset: 08-26-2024 08-27-2024 Chronic Mood disorders (2 sources) Reactive depression (situational); Translations: [Major depressive disorder, single episode, unspecified] 09-23-2024 Chronic Osteoarthritis (20 sources) Arthritis of left knee; Translations: [Unilateral primary osteoarthritis, left knee] Onset: 11-27-2021 11-27-2021 Chronic Other aftercare (18 sources) Postoperative visit; Translations: [Encounter for other specified surgical aftercare] 03-30-2024 Episodic Other aftercare (2 sources) Surgical follow-up; Translations: [Encounter for follow-up examination after completed treatment for conditions other than malignant neoplasm] 04-21-2024 Episodic Other aftercare (1 source) Encounter for change or removal of surgical wound dressing; Translations: [Encounter for change or removal of surgical wound dressing] Onset: 08-24-2024 Episodic Other aftercare (1 source) Other manager long term care (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 therapy; Translations: [Other residential (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 therapy] Onset: 06-03-2024 Episodic Other aftercare (1 source) Encounter for follow-up examination after completed treatment for conditions other than malignant neoplasm; Translations: [Encounter for follow-up examination after completed treatment for conditions other than malignant neoplasm] Onset: 07-27-2024 Episodic Other circulatory disease (1 source) H/O: [...] right eye] Onset: 12-30-2023 12-30-2023 Chronic Other inflammatory condition of skin (1 source) Red breast; Translations: [Erythematous condition, unspecified] 06-13-2024 Episodic Other injuries and conditions due to external causes (2 sources) Anaphylaxis; Translations: [Anaphylactic shock, unspecified, subsequent encounter] 02-01-2024 Episodic Other liver diseases (1 source) Liver disease, unspecified; Translations: [Liver disease, unspecified] Onset: 07-06-2024 Chronic Other nervous system disorders (17 sources) Mass lesion of brain; Translations: [Other specified disorders of brain] Onset: 08-27-2024 08-27-2024 Chronic Other nervous system disorders (17 sources) Neuropathy caused by chemical substance; Translations: [Drug-induced polyneuropathy] Onset: 08-27-2024 08-27-2024 Chronic Other nervous system disorders (17 sources) Cerebellar dysarthria; Translations: [Dysarthria and anarthria] Onset: 08-27-2024 08-27-2024 Episodic Other nutritional; endocrine; and metabolic disorders (1 source) Obese class I; Translations: [Body mass index (BMI) 30.0-30.9, adult] Onset: 07-14-2022 Chronic Other nutritional; endocrine; and metabolic disorders (13 sources) Obesity; Translations: [Obesity, unspecified] Onset: 07-14-2022 Chronic Other nutritional; endocrine; and metabolic disorders (4 sources) Body mass index 30+ - obesity 04-10-2023 Chronic Other upper respiratory infections (1 source) Acute upper respiratory infection; Translations: [Acute upper respiratory infection, unspecified] Onset: 07-14-2022 Episodic Phlebitis; thrombophlebitis and thromboembolism (1 source) Acute deep venous thrombosis of calf; Translations: [Acute embolism and thrombosis of left calf muscular vein] 07-18-2024 Episodic Residual codes; unclassified (6 sources) Edema; Translations: [Edema] Episodic Residual codes; unclassified (3 sources) Device in situ 06-04-2023 Episodic Residual codes; unclassified (8 sources) Bilateral acquired absence of breast; Translations: [Acquired absence of bilateral breasts and nipples] 11-04-2023 Episodic Residual codes; unclassified (1 source) Pain; Translations: [Pain, unspecified] Onset: 05-22-2024 Episodic Residual codes; unclassified (2 sources) Postmenopausal state; Translations: [Asymptomatic menopausal state] 06-01-2024 Episodic Residual codes; unclassified (1 source) History of cardiac catheterization; Translations: [Other specified postprocedural states] 07-18-2024 Episodic Residual codes; unclassified (1 source) Pain, unspecified; Translations: [Pain, unspecified] Onset: 06-12-2024 Episodic Residual codes; unclassified (17 sources) Other specified health status; Translations: [Other specified conditions influencing health status] Onset: 08-27-2024 08-27-2024 Episodic Residual codes; unclassified (1 source) Postoperative state; Translations: [Other specified postprocedural states] 09-16-2024 Episodic Secondary malignancies (1 source) Secondary malignant neoplasm of brain and spinal cord; Translations: [Secondary malignant neoplasm of brain] 09-05-2024 Chronic Secondary malignancies (12 sources) Secondary malignant neoplasm of brain; Translations: [Secondary malignant neoplasm of brain] Onset: 08-27-2024 09-07-2024 Chronic Secondary malignancies (1 source) Secondary malignant neoplasm of liver and intrahepatic bile duct; Translations: [Breast cancer metastasized to liver, unspecified laterality (HCC)] Onset: 08-27-2024 Chronic Secondary malignancies (1 source) Secondary malignant neoplasm of brain; Translations: [Secondary malignant neoplasm of brain (HCC)] Onset: 09-07-2024 Chronic Secondary malignancies (1 source) Secondary malignant neoplasm of unspecified site; Translations: [Metastasis from breast cancer (HCC)] Onset: 07-21-2024 Chronic Unclassified (1 source) Contact with and (suspected) exposure to covid-19; Translations: [Contact with and (suspected) exposure to covid-19] Unclassified (20 sources) Autogenerated Problem Onset: 07-13-2024 07-13-2024 Unclassified (1 source) July 29 debrievement of left breast tissue Onset: 08-10-2024 Unclassified (1 source) Post-op Onset: 12-02-2023 Unclassified (1 source) New Patient Evaluation Onset: 07-19-2024 Unclassified (1 source) New Patient Onset: 04-13-2024 Unclassified (1 source) Post-op Problem Onset: 12-02-2023 Unclassified (1 source) INVASIVE CARCINOMA RIGHT Onset: 10-28-2023 Past or Other Problems Problem Classification Problem Date Documented Da te Episodic/Chronic Acute and unspecified renal failure (20 sources) Acute renal failure syndrome; Translations: [Acute kidney failure, unspecified] Onset: 12-02-2023 12-28-2023 Episodic Allergic reactions (4 sources) Allergy status to unspecified drugs, medicaments and biological substances status; Translations: [Allergy status to other antibiotic agents status] Onset: 05-23-2024 Episodic Cardiac dysrhythmias (20 sources) Palpitations; Translations: [...] E Codes: Adverse effects of medical drugs (4 sources) Doxycycline adverse reaction; Translations: [Adverse effect of tetracyclines, initial encounter] Onset: 05-31-2024 01-25-2024 Episodic Fever of unknown origin (3 sources) Fever; Translations: [Fever, unspecified] Onset: 05-22-2024 Episodic Fluid and electrolyte disorders (20 sources) Hypokalemia; Translations: [Hypopotassemia] Onset: 12-23-2019 11-27-2021 Episodic Mood disorders (20 sources) Mood disorders Onset: 03-07-2022 Resolved: 08-10-2024 03-07-2022 Nonmalignant breast conditions (20 sources) Cellulitis of breast; Translations: [Mastitis without abscess] Onset: 11-26-2023 12-04-2023 Episodic Open wounds of head; neck; and trunk (20 sources) Disorder of breast; Translations: [Unspecified open wound of left breast, sequela] Onset: 05-05-2024 03-30-2024 Episodic Other aftercare (2 sources) Encounter for other specified surgical aftercare; Translations: [Encounter for other specified surgical aftercare] Onset: 11-04-2023 Episodic Other aftercare (3 sources) Encounter for therapeutic drug level monitoring; Translations: [Encounter for medication monitoring] Onset: 03-16-2024 Episodic Other gastrointestinal disorders (20 sources) Pelvic mass; Translations: [Intra-abdominal and pelvic swelling, mass and lump, unspecified site] Onset: 04-13-2024 04-13-2024 Episodic Other gastrointestinal disorders (1 source) Intra-abdominal and pelvic swelling, mass and lump, unspecified site; Translations: [Intra-abdominal and pelvic swelling, mass and lump, unspecified site] Onset: 04-13-2024 Episodic Other injuries and conditions due to external causes (20 sources) Local infection of wound; Translations: [Other injury of unspecified body region, initial encounter] Onset: 06-11-2024 06-11-2024 Episodic Other injuries and conditions due to external causes (1 source) Other injury of unspecified body region, initial encounter; Translations: [Other injury of unspecified body region, initial encounter] Onset: 06-11-2024 Episodic Other screening for suspected conditions (not mental disorders or infectious disease) (13 sources) Encounter for screening for malignant neoplasm [...] Onset: 10-28-2023 10-28-2023 Episodic Residual codes; unclassified (20 sources) History of reconstruction of left breast; Translations: [Other specified postprocedural states] Onset: 05-02-2024 05-02-2024 Episodic Residual codes; unclassified (5 sources) Estrogen receptor positive status [ER+]; Translations: [Estrogen receptor positive status (ER+)] Onset: 12-04-2023 Episodic Residual codes; unclassified (2 sources) Acquired absence of bilateral breasts and nipples; Translations: [Acquired absence of bilateral breasts and nipples] Onset: 11-04-2023 Episodic Residual codes; unclassified (7 sources) Other specified postprocedural states; Translations: [Other specified postprocedural states] Onset: 10-28-2023 Episodic Retinal detachments; defects; vascular occlusion; and retinopathy (20 sources) Retinal tear of right eye; Translations: [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, right eye] Onset: 12-30-2023 12-30-2023 Episodic Skin and subcutaneous tissue infections (10 sources) Cutaneous infectious disease due to Mycobacteria; Translations: [Cutaneous mycobacterial infection] Onset: 12-02-2023 12-08-2023 Episodic Sprains and strains (20 sources) Complete tear, knee, anterior cruciate ligament; Translations: [Sprain of anterior cruciate ligament of unspecified knee, initial encounter] Onset: 04-30-2006 11-27-2021 Episodic Unclassified (1 source) Contact with and (suspected) exposure to covid-19 Z20.822 Onset: 11-11-2021 Resolved: 11-11-2021 Unclassified (8 sources) Excision of lipoma 03-30-2020 Unclassified (6 sources) Never smoked tobacco; Translations: [Never a smoker] Urinary tract infections (20 sources) Recurrent urinary tract infection; Translations: [Urinary tract infection, site not specified] Onset: 01-31-2022 01-31-2022 Episodic Results Test Name Value Interpretation Reference Range Facility ANAEROBIC CULTUREon 10-13-19 ANAEROBIC CULTURE CULTURE RESULTS NO GROWTH 5 DAYS [facility] Comment on above: Order Comment: Pre-o p diagnosis:BREAST WOUND LEFT Performed By: #### A NAC ####[facility] ([facility])[address] [place] [address] VIR TISSUE CULTUREon 10-12-2024 TISSUE CULTURE CULTURE RESULTS NO GROWTH 3 DAYS GRAM STAIN 0 White Blood Cells/LPF 0 Squamous Epithelial Cells/LPF No organisms seen [facility] Comment on above: Order Comment: Pre-o p diagnosis:BREAST WOUND LEFT Performed By: #### T ISC ####[facility] ([facility])[address] [address] VIR CNOPon 10-07-2024 CNOP Operative Note (Enc) (NSCAMN) Encounter Status:Closed by JOSUE MCCAIN on 10/07/24 [facility] CNOVon 10-07-2024 CNOV Office Visit (NOGKCA ) IKE FLANNERY ([id number]) 1970 F Date Time Provider Department 10/07/24 9:00 AM PLACEMENT VIVIENNE MICHAEL During your visit today, we recorded the following information about you: Pulse Blood pressure 76/minute 122/81 Alexander Browning, OC 10/07/2024 11:03 AM Signed October 07, 2024 0704 Ike arrived ambulatory with: self. Transportation home verified: yes, with Marvin. Hoffman here for today for imaging, mask fitting, pre-planning for Icon mask based Gamma Knife Stereotactic Radiosurgery by radiation therapist, and single session mask based treatment. ID verified with patient with two identifiers, name and birthdate. Alexander Browning RN Ike assessed for the following: Does Ike have any pain? No. Pain 0 on scale of 0-10 Does Ike have: Difficulty chewing and/or swallowing: no Fall risk assessment: Not at risk for falls Concerns about physical or emotional abuse: no Allergies reviewed with patient, yes. [id number] Mask completed. To imaging for CT Scan and MRI. Ike Flannery returned to department for treatment # 1 of . Is patient on immunotherapy? No. Patient's Age: 53 Menstruation Status: Hysterectomy 921 Decadron 4 mg po and xanax 0.5 po given prior to Gamma Knife SRS per order of Dr. Adán MD. 18 Patient assisted to treatment room. Gamma Knife SRS begun. 1014 Gamma Knife Stereotactic Radiosurgery Completed. 1020 Discharge instructions given to patient. Instructions reviewed by this nurse and patient verbalized an understanding. Pt then discharged. OC Hinds Colleen, RN 10/07/2024 9:16 AM Signed [facility] Knife [facility] Discharge Instructions As [...] nearest emergency room. These may or may not be symptoms of brain swelling. If you go to a physician or hospital other than the [facility] with any problem related to the Gamma Knife procedure, please call your physician, Dr. Sherly Mccain at [phone]. After your treatment, you may experience a mild headache. You may take non-aspirin pain medication, such as Tylenol, if you are having any [...] step to recovery. Continue to eat well and get plenty of rest. If you have any non-urgent questions or concerns, please call your physician, Dr. Sherly Mccain at [phone] Thursday through Thursday 8:00 am to 5:00 pm. In the evening or on weekends, call [phone] or toll-free [phone] and ask the resizer operator to page your neurosurgeon's resident prison teacher. Referring Provider: JOSUE MCCAIN [[id number]] Allergies As of Date: 10/07/2024 Noted Allergy Reaction MEPERIDINE 03/17/2018 14 - Other: See Comments 2 - Rash 7 - Swelling Comments: Other Reaction(s): Other, Unknown VANCOMYCIN 01/25/2024 14 - Other: See Comments Comments: Other Reaction(s): Other Intolerance: experienced acute kidney injury during a hospitalization, suspected due to vancomycin. Acute Kidney Injury TETRACYCLINE 01/25/2024 2 - Rash ADHESIVE 11/27/2021 2 - Rash CEFTAROLINE FOSAMIL 06/01/2024 14 - Other: See Comments DAPTOMYCIN 11/28/2023 14 - Other: See Comments Comments: Other Reaction(s): Flushing DOXYCYCLINE 12/09/2023 2 - Rash Date Reviewed: 10/07/2024 Reviewed by: Corry Beal RT(R) - Tacho (more content not included)... [facility] CT BRAIN STEREOLOCAL WO IVCO Non 10-07-2024 CT BRAIN STEREOLOCAL WO IVCON * * *Final Report* * * DATE [...] this is for gk planning purposes. - [id number] - - - - TECHNIQUE: CT head [...] or retention cysts in both maxillary antra. Motorcoach Operator (topogram) images: No additional findings. IMPRESSION: Examination performed for preprocedural planning purposes. 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 Transcribe Date/Time: Oct 07 2024 8:54A Dictated by : MACIE PIZANO DO This examination was interpreted and the report reviewed and electronically signed by: MACIE PIZANO DO on Oct 07 2024 8:56AM EST [id number] [facility] CT Guidance for stereotactic biopsy of Head-- WO contraston 10-07-2024 Radiology Study observation (narrative) [facility] IMPRESSION: Examination performed for preprocedural planning purposes. 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 Transcribe Date/Time: Oct 07 2024 8:54A Dictated by : MACIE PIZANO DO This examination was interpreted and the report reviewed and electronically signed by: MACIE PIZANO DO on Oct 07 2024 8:56AM [facility] DIVISION OF RADIOLOGY * * *Final Report* * * DATE [...] this is for gk planning purposes. - [id number] - - - - TECHNIQUE: CT head [...] or retention cysts in both maxillary antra. Motorcoach Operator (topogram) images: No additional findings. DIVISION OF RADIOLOGY Provider, [facility] - 10/07/2024 * * *Final Report* [...] this is for gk planning purposes. - [id number] - - - - TECHNIQUE: CT head [...] or retention cysts in both maxillary antra. Motorcoach Operator (topogram) images: No additional findings. IMPRESSION IMPRESSION: Examination performed for preprocedural planning purposes. Gasoline Plant Operator: CARLOS Transcribe Date/Time: Oct 07 2024 8:54A Dictated by : MACIE PIZANO DO This examination was interpreted and the report reviewed and electronically signed by: MACIE PIZANO DO on Oct 07 2024 8:56AM EST [facility] CT Guidance for stereotactic biopsy of Head-- WO contrastOrdered By: Ccf Provider on 10-07-2024 [facility] MR Guidance for stereotactic localization of Brain-- W contrast Ashwin 10-07-2024 IMPRESSION: Examination performed for preprocedural planning purposes. Stable small lesion in the left middle frontal gyrus. Slight decrease in size of midline cerebellar vermis lesion and left inferior frontal lesion from 09/07/2024. Gasoline Plant Operator: CARLOS Transcribe Date/Time: Oct 07 2024 8:56A Dictated by : MACIE PIZANO DO This examination was interpreted and the report reviewed and electronically signed by: MACIE PIZANO DO on Oct 07 2024 9:01AM [facility] DIVISION OF RADIOLOGY * * *Final Report* * * DATE [...] this is for gk planning purposes - [id number] - - - - TECHNIQUE: MRI brain localization exam with intravenous contrast M: [id number] MR Contrast: Elucirem Contrast Dose: 9.5 cc [...] the ventricular system. Basal cisterns are clear. DIVISION OF RADIOLOGY Provider, [facility] - 10/07/2024 * * *Final Report* [...] this is for gk planning purposes - [id number] - - - - TECHNIQUE: MRI brain [...] and left inferior frontal lesion from 09/07/2024. Gasoline Plant Operator: CARLOS Transcribe Date/Time: Oct 07 2024 8:56A Dictated by : MACIE PIZANO DO This examination was interpreted and the report reviewed and electronically signed by: MACIE PIZANO DO on Oct 07 2024 9:01AM EST [facility] Radiology Study observation (narrative) [facility] MR Guidance for stereotactic localization of Brain-- W contrast IVOrdered By: Ccf Provider on 10-07-2024 [facility] MRI BRAIN LOCAL W IVCONon MRI BRAIN LOCAL W IVCON * * *Final Report* * * DATE [...] this is for gk planning purposes - [id number] - - - - TECHNIQUE: MRI brain [...] the ventricular system. Basal cisterns are clear. IMPRESSION: Examination performed for preprocedural planning purposes. Stable small lesion in the left middle frontal gyrus. Slight decrease in size of midline cerebellar vermis lesion and left inferior frontal lesion from 09/07/2024. 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 Transcribe Date/Time: Oct 07 2024 8:56A Dictated by : MACIE PIZANO DO This examination was interpreted and the report reviewed and electronically signed by: MACIE PIZANO DO on Oct 07 2024 9:01AM EST [id number] [facility] Orders Onlyon 10-06-2024 Orders Only [id number] Ike Flannery A 1970 F Date Provider Department Center 10/06/2024 [id number], HISTORICAL [facility] Family History Adopted: Yes Problem Relation Age of Onset Heart attack Father Family Status - Relation Status Age at Father Normal [facility] Orders Onlyon 10-04-2024 Orders Only [id number] Ike Flannery A 1970 F Date Provider Department Center 10/04/2024 [id number], HISTORICAL [facility] Family History Adopted: Yes Problem Relation Age of Onset Heart attack Father Family Status - Relation Status Age at Father Normal [facility] Orders Onlyon 09-27-2024 Orders Only [id number] Ike Flannery A 1970 F Date Provider Department Center 09/27/2024 [id number], HISTORICAL [facility] Family History Adopted: Yes Problem Relation Age of Onset Heart attack Father Family Status - Relation Status Age at Father Normal [facility] 09-23-[address] [facility] IKE FLANNERY ([id number]) 1970 F Date Time Provider Department 09/23/24 [facility] During your visit today, we recorded the following information about you: Francoise Johnston RN 09/23/2024 11:49 AM Signed I spoke with Ike to let her know that her second stage of Gamma Knie will be scheduled for October 07. Ike verbalized agreement with this date and had no further questions or concerns at this time but knows to reach out if she does. Allergies As of Date: 09/23/2024 Noted Allergy Reaction MEPERIDINE 03/17/2018 14 - Other: See Comments 2 - Rash 7 - Swelling Comments: Other Reaction(s): Other, Unknown VANCOMYCIN 01/25/2024 14 - Other: See Comments Comments: Other Reaction(s): Other Intolerance: experienced acute kidney injury during a hospitalization, suspected due to vancomycin. 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 - acetaminophen (TYLENOL) 325 mg tablet Take 650 mg by mouth q 6 HR. - naloxone 4 mg/actuation nasal spray (NARCAN) Use 4 mg in the nose at bedtime as needed. - famotidine (PEPCID) 20 mg tablet Take 1 tablet by mouth once daily. Patient should start on September 08, 2024. - dexAMETHasone (DECADRON) 4 mg tablet Take 1 tablet by mouth daily with breakfast. - famotidine (PEPCID) 40 mg tablet Take 1 tablet by mouth once daily. - acyclovir (ZOVIRAX) 400 mg tablet Take 1 tablet by mouth two times a day. - sulfamethoxazole-trime thoprim (BACTRIM DS) 800-160 mg per tablet Take 1 tablet by mouth every Thursday, Thursday, and Thursday for 28 days. - 0.9 % sodium chloride (NACL 0.9%) infusion - amikacin (AMIKIN) 500 mg/2 mL soln - ELIQUIS 5 mg tab(s) Take 5 mg by mouth. - carvedilol (COREG) 12.5 mg tablet Take 12.5 mg by mouth. - cyanocobalamin (VITAMIN B-12) 1,000 mcg tab Take 1,000 mcg by mouth. - cyclobenzaprine (FLEXERIL) 10 mg tablet Take 1 tablet by mouth every evening. - diazePAM (VALIUM) 5 mg tablet Take 1 tablet (5 mg total) by mouth every 12 (twelve) hours as needed for anxiety or muscle spasms (Give 30min prior to dressing change) for up to 10 days for anxiety - FEROSUL 325 mg (65 mg iron) tablet Take 1 tablet by mouth two times a day with meals. - folic acid 1 mg tablet Take 1 mg by mouth. - gabapentin (NEURONTIN) 300 mg capsule Take 300 mg by mouth two times a day. - hydrOXYzine HCl (ATARAX) 25 mg tablet Take 25 mg by mouth. - imipenem/cilastatin sodium (IMIPENEM-CILASTATIN INTRAVENOUS) Inject 1,000 mg intravenously two times a day. - magnesium oxide 400 mg magnesium tab Take 400 mg by mouth. - omadacycline (NUZYRA) 150 mg tablet Take 300 mg by mouth. - oxyCODONE IR (ROXICODONE) 10 mg tab Take 1 tablet by mouth every 6 hours as needed. - oxyCODONE IR (ROXICODONE) 5 mg immediate release tablet Take 1 tablet (5 mg total) by mouth every 4 hours as needed for pain for up to 7 days. Max Daily Amount 30 mg - potassium chloride (K-TAB) 10 mEq tablet TAKE TWO TABLETS BY MOUTH TWICE A DAY - prochlorperazine (COMPAZINE) 10 mg tablet - pyridoxine, vitamin B6, (VITAMIN B6) 50 mg tablet Take 50 mg by mouth. - spironolactone (ALDACTONE) 25 mg tablet Take 12.5 mg by mouth once daily. - CLOFAZIMINE, BULK, MISC Take 100 mg by mouth. 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 On complex medication regimen [Z78.9] 08/27/2024 Superficial incisional surgical site infection *08/27/2024 Hypertension [I10] 08/27/2024 Cerebellar mass [G93.89] 08/27/2024 Chemotherapy-induced neuropathy (HCC) [G62.0, T*08/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 [R47.1] 08/27/2024 Iron deficiency anemia [D50.9] 08/28/2024 Acute renal failure [N17.9] 09/08/2024 Encounter Status:Closed by FRANCOISE JOHNSTON on 09/23/24 [facility] Delia 09-22-2024 CNPN Telephone (NSCAMN) IKE FLANNERY ([id number]) 1970 F Date Time Provider Department 09/22/24 JOSUE MCCAIN [facility] During your visit today, we recorded the following information about you: Maria Luisa Del Valletracie 09/22/2024 4:50 PM Signed General Call Caller : Ike Contact Reason for Call : Patient would like a call back in regards to getting there next gamma knife appointment. Please advise. Patient requesting return call ? Yes Allergies As of Date: 09/22/2024 Noted Allergy Reaction MEPERIDINE 03/17/2018 14 - Other: See Comments 2 - Rash 7 - Swelling Comments: Other Reaction(s): Other, Unknown VANCOMYCIN 01/25/2024 14 - Other: See Comments Comments: Other Reaction(s): Other Intolerance: experienced acute kidney injury during a hospitalization, suspected due to vancomycin. Acute Kidney Injury TETRACYCLINE 01/25/2024 2 - Rash ADHESIVE 11/27/2021 2 - Rash CEFTAROLINE FOSAMIL 06/01/2024 14 - Other: See Comments DAPTOMYCIN 11/28/2023 14 - Other: See Comments Comments: Other Reaction(s): Flushing DOXYCYCLINE 12/09/2023 2 - Rash Date Reviewed: 09/16/2024 Reviewed by: Val Jacob OCCA - Fully Assessed Prescriptions as of 09/23/2024 - capecitabine (XELODA) 500 mg tablet Take 1,500 mg by mouth. - acetaminophen (TYLENOL) 325 mg tablet Take 650 mg by mouth q 6 HR. - naloxone 4 mg/actuation nasal spray (NARCAN) Use 4 mg in the nose at bedtime as needed. - famotidine (PEPCID) 20 mg tablet Take 1 tablet by mouth once daily. Patient should start on September 08, 2024. - dexAMETHasone (DECADRON) 4 mg tablet Take 1 tablet by mouth daily with breakfast. - famotidine (PEPCID) 40 mg tablet Take 1 tablet by mouth once daily. - acyclovir (ZOVIRAX) 400 mg tablet Take 1 tablet by mouth two times a day. - sulfamethoxazole-trime thoprim (BACTRIM DS) 800-160 mg per tablet Take 1 tablet by mouth every Thursday, Thursday, and Thursday for 28 days. - 0.9 % sodium chloride (NACL 0.9%) infusion - amikacin (AMIKIN) 500 mg/2 mL soln - ELIQUIS 5 mg tab(s) Take 5 mg by mouth. - carvedilol (COREG) 12.5 mg tablet Take 12.5 mg by mouth. - cyanocobalamin (VITAMIN B-12) 1,000 mcg tab Take 1,000 mcg by mouth. - cyclobenzaprine (FLEXERIL) 10 mg tablet Take 1 tablet by mouth every evening. - diazePAM (VALIUM) 5 mg tablet Take 1 tablet (5 mg total) by mouth every 12 (twelve) hours as needed for anxiety or muscle spasms (Give 30min prior to dressing change) for up to 10 days for anxiety - FEROSUL 325 mg (65 mg iron) tablet Take 1 tablet by mouth two times a day with meals. - folic acid 1 mg tablet Take 1 mg by mouth. - gabapentin (NEURONTIN) 300 mg capsule Take 300 mg by mouth two times a day. - hydrOXYzine HCl (ATARAX) 25 mg tablet Take 25 mg by mouth. - imipenem/cilastatin sodium (IMIPENEM-CILASTATIN INTRAVENOUS) Inject 1,000 mg intravenously two times a day. - magnesium oxide 400 mg magnesium tab Take 400 mg by mouth. - omadacycline (NUZYRA) 150 mg tablet Take 300 mg by mouth. - oxyCODONE IR (ROXICODONE) 10 mg tab Take 1 tablet by mouth every 6 hours as needed. - oxyCODONE IR (ROXICODONE) 5 mg immediate release tablet Take 1 tablet (5 mg total) by mouth every 4 hours as needed for pain for up to 7 days. Max Daily Amount 30 mg - potassium chloride (K-TAB) 10 mEq tablet TAKE TWO TABLETS BY MOUTH TWICE A DAY - prochlorperazine (COMPAZINE) 10 mg tablet - pyridoxine, vitamin B6, (VITAMIN B6) 50 mg tablet Take 50 mg by mouth. - spironolactone (ALDACTONE) 25 mg tablet Take 12.5 mg by mouth once daily. - CLOFAZIMINE, BULK, MISC Take 100 mg by mouth. 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 Lui. Patient next follow up appointment is 10/[address] Lui. Normal [facility] Orders Onlyon 09-19-2024 Orders Only [id number] Ike Flannery 1970 F Date Provider Department Center 09/19/2024 [id number], [facility] Family History Adopted: Yes Problem Relation Age of Onset Heart attack Father Family Status - Relation Status Age at Father Normal [facility] CNOVon 09-16-2024 CNOV Office Visit (PLASMN ) IKE FLANNERY ([id number]) 1970 F Date Time Provider Department 09/16/24 8:40 AM GENO PIERCE During your visit today, we recorded the following information about you: Temperature Pulse Blood pressure 97.4 degrees 84/minute 136/90 Geno Pierce, PLANNING LEAD.APPARATUS ENGINEERING TECHNOLOGIST 09/16/2024 2:45 PM Signed Plastic Surgery Note CC: post op HPI: Ike is a 53 year old female who presents today for evaluation of s/p 08/30/2024 Dr. [place] 1. Excisional biopsy right breast skin 2. Explantation of right breast tissue putty mixer intact 3. Debridement of right breast pocket for closure and 20 x 20 cm ARTEMIO drain removed by Plastic Surgey team at [facility] Pt reports she is feeling well. Denies pain. Denies drainage from the incision. Denies fever/chills. Pathology FINAL DIAGNOSIS A. Right breast skin, excision: - Carcinoma involving dermis, see comment. B. Right breast, putty mixer removal: - Grossly unremarkable, collapsed, textured putty mixer (Gross examination only). SS/MLG at 1420 EDT Diagnosis Comment The morphologic features are compatible with breast origin. The lesion measures up to 10 mm and extends to inked specimen margins. ER, MD and HER2 are pending and will be reported separately. Gross Description A. Soft Tissue (Not otherwise [...] submitted as follows: A1: Tips A2-A3: Body HMZ 08/30/24 4:17 PM Gross examination performed at [facility], [address] [place] [address] B. Hardware/Device/Foreig n Body Received fresh labeled as right breast tissue putty mixer is a collapsed textured putty mixer weighing 144.10 g and measuring 15.0 x 14.0 x 2.0 cm with the following inscription ALLOX2 SIENTRA FH 14 . No soft tissue is present. No sections are submitted. The specimen is reviewed with Dr. Kerns. Gross examination only. [facility] 08/30/24 1:20 PM Gross examination performed at [facility], [address] [place] [address] Clinical History Pre-op diagnosis: Cancer (HCC) [C80.1] History of reconstruction of both breasts [Z98.890] Performing Lab Diagnostic interpretation performed at: [facility], [address] [place] [address], Desk [place] [address] CLIA# [id number] Cow Buyer: Derick Meadows MD Disclaimer PAST MEDICAL HISTORY Diagnosis Date Breast cancer (HCC) 04/02/2023 Completed therapy. On Estrogen jay therpay PAST SURGICAL HISTORY Procedure Laterality Date INSERTION OR REPLACEMENT OF BREAST IMPLANT ON SEPARATE DAY FROM MASTECTOMY BILATERAL Bilateral 10/28/2023 Current Outpatient Medications Medication Sig Dispense Refill famotidine (PEPCID) 20 mg tablet Take 1 tablet by mouth once daily. Patient should start on September 08, 2024. 10 tablet 0 dexAMETHasone (DECADRON) 2 mg tablet Take 2 tablets by mouth daily with breakfast for 5 days, THEN 1 tablet daily with breakfast for 5 days. Patient should start on September 08, 2024. 15 tablet 0 dexAMETHasone (DECADRON) 4 mg tablet Take 1 tablet by mouth daily with breakfast. 30 tablet 0 famotidine (PEPCID) 40 mg tablet Take 1 tablet by mouth once daily. 30 tablet 0 acyclovir (ZOVIRAX) 400 mg tablet Take 1 tablet by mouth two times a day. 60 tablet 0 sulfamethoxazole-trime thoprim (BACTRIM DS) 800-160 mg per tablet Take 1 tablet by mouth every Thursday, Thursday, and Thursday for 28 days. 12 tablet 0 0.9 % sodium chloride (NACL 0.9%) infusion amikacin (AMIKIN) 500 mg/2 mL soln ELIQUIS 5 mg tab(s) Take 5 mg by mouth. carvedilol (COREG) 12.5 mg tablet Take 12.5 mg by mouth. cyanocobalamin (VITAMIN B-12) 1,000 mcg tab Take 1,000 mcg by mouth. cyclobenzaprine (FLEXERIL) 10 mg tablet Take 1 tablet by mouth every evening. (Patient not taking: Reported on 09/07/2024) diazePAM (VALIUM) 5 mg tablet Take 1 tablet (5 mg total) by mouth every 12 (twelve) hours as needed for anxiety or muscle spasms (Give 30min prior to dressing change) for up to 10 days for anxiety FEROSUL 325 mg (65 mg iron) tablet Take 1 tablet by mouth two times a day with meals. folic acid 1 mg tablet Take 1 mg by mouth. gabapentin (NEURONTIN) 300 mg capsule Take 300 mg by mouth two times a day. hydrOXYzine HCl (ATARAX) 25 mg tablet Take 25 mg by mouth. imipenem/cilastatin sodium (IMIPENEM-CILASTATIN INTRAVENOUS) Inject 1,000 mg intravenously two times a day. magnesium oxide 400 mg magnesium tab Take 400 mg by mouth. omadacycline (NUZYRA) 150 mg tablet Take 300 (more content not included)... [facility] CNOVSPon 09-16-2024 [facility] Visit (SP) Office (HEMCA4) IKE FLANNERY ([id number]) 1970 F Date Time Provider Department 09/16/24 7:30 AM ALESSANDRA SYEDCA4 During your visit today, we recorded the following information about you: Temperature Pulse Respiration Blood pressure 98.1 degrees 78/minute 18/minute 149/92 Weight 91.3 kg Alejandro Yang LPN 09/16/2024 8:33 AM Signed Additional intake questions: Has the patient had fever, nausea, vomiting, diarrhea, constipation, fatigue for > 1 week? No Does the patient have a decreased appetite? No Does patient have any new or increased numbness or tingling of extremities? No Does patient need any prescription refills? No Does patient have an advanced directive in place? No, Patient referred to Resource Center Electronically Signed By: SHARAD Ray Marie, APRN.[facility] 09/16/2024 8:33 AM Signed Recording using Ezakus software for draft documentation of the visit was discussed with the patient/authorized registration representative; all questions welcomed and answered. Patient/authorized registration representative agreed to proceed ATTENDING PHYSICIAN: Dr. Bobby Christy IDENTIFICATION: Ike Flannery is a 53 year old woman with an ER positive (41-50%), MD negative, [id number] negative (IHC 0+) metastatic breast cancer with primary involvement of the liver and brain. REASON FOR VISIT / CHIEF COMPLAINT: evaluation prior to continuation of active therapy for metastatic breast cancer / hospital discharge follow up CURRENT SYSTEMIC THERAPY FOR BREAST CANCER: Capecitabine (she started her most recent cycle on 09/08) PAST THERAPY FOR BREAST CANCER: 2023 (initial diagnosis) Neoadjuvant taxol / carbo / pembro, followed by doxorubicin / cyclophosphamide Adjuvant pembrolizumab Bilateral mastectomy with right axillary dissection and tissue putty mixer placement Radiation Anastrozole (January 2024 - May 2024) May 2024 (metastatic diagnosis) Capecitabine (July 2024 - present) Gamma knife (September 07, 2024) INTERVAL HISTORY: Pt presents today by herself for evaluation prior to continuation of therapy for metastatic breast cancer. Metastatic Cancer: - Follows with oncologist in [place], usually monthly, but more frequently recently. - Started Xeloda on September 08; currently on treatment week, with off week starting on the . - Reports fatigue and decreased alertness after taking Xeloda; has not taken today's dose yet. - No nausea or diarrhea reported. - Noticed worsening neuropathy and steam drier tender fingers; no redness or peeling in palms. - Prefers Xeloda over other treatments due to concerns about hair loss. - Underwent Gamma Knife surgery; reports clearer thoughts and improved speech within 48 hours post-surgery. - Weekly blood work for oncology and infectious disease monitoring. - Last PET scan in May at [facility] - No current pain reported. REVIEW OF SYSTEMS: The remainder of the review of systems is unremarkable. PHYSICAL EXAMINATION: BP 149/92 Pulse 78 Temp 36.7 ?C (98.1 ?F) (Skin) Resp 18 Wt 91.3 kg (201 lb 4.5 oz) SpO2 100% BMI 28.88 kg/m? ECOG PERFORMANCE STATUS: 1- Restricted in physically strenuous activity. Carries out light duty. General appearance: well appearing, alert, in no acute distress Skin: Skin color, texture, turgor normal, no rashes or lesions Head: unremarkable Neck: Supple, no adenopathy Lungs: lungs clear to auscultation, no wheezing or rhonchi Heart: Negative, RRR Extremities:Extremitie s normal. No deformities or edema. LABS/IMAGING: Latest Ref Rng AND Units 09/01/2024 CMP Sodium 136 - 144 mmol/L 140 Potassium 3.7 - 5.1 mmol/L 4.0 Chloride 98 - 107 mmol/L 107 CO2 22 - 30 mmol/L 23 Glucose 74 - 99 mg/dL 105 BUN 7 - 21 mg/dL 19 Creatinine 0.58 - 0.96 mg/dL 1.03 EGFR >=60 mL/min/1.73m? 65 Protein, Total 6.3 - 8.0 g/dL 5.7 Albumin 3.9 - 4.9 g/dL 3.7 Calcium 8.5 - 10.2 mg/dL 8.9 Bilirubin, Total 0.2 - 1.3 mg/dL 0.5 AST 13 - 35 U/L 72 ALT 7 - 38 U/L 109 Alkaline Phosphatase 34 - 123 U/L 75 Latest Ref Rng AND Units 09/01/2024 CBC WBC 3.70 - 11.00 k/uL 7.56 RBC 3.90 - 5.20 m/uL 2.90 Hemoglobin 11.5 - 15.5 g/dL 9.5 Hematocrit 36.0 - 46.0 % 28.1 MCV 80.0 - 100.0 fL 96.9 MCH 26.0 - 34.0 pg 32.8 MCHC 30.5 - 36.0 g/dL 33.8 RDW-CV 11.5 - 15.0 % 19.4 Platelet Count 150 - 400 k/uL 210 MPV 9.0 - 12.7 fL 9.4 Baso% % 0.1 Abs Neut (ANC) 1.45 - 7.50 k/uL 5.88 Abs Lymph 1.00 - 4.00 k/uL 1.22 Abs [place] <0.87 k/uL 0.38 Abs Eosin <0.46 k/uL <0.03 Abs Baso <0.11 k/uL <0.03 NRBC /100 WBC 0.0 IMPRESSION: woman with an ER positive (41-50%), MD negative, Oxx4odf negative (IHC 0+) metastatic breast cancer with primary involvement of the liver and brain Current therapy: capecitabine Pt is without any signs or symptoms of recurrent or metastatic disease at the time of today's exam PLAN: After evaluation an (more content not included)... [facility] Orders Onlyon 09-16-2024 Orders Only [id number] Ike Flannery Yumi 1970 F Date Provider Department Center 09/16/2024 [id number], PRADIP [facility] INF [facility] Family History Adopted: Yes Problem Relation Age of Onset Heart attack Father Family Status - Relation Status Age at Father [facility] Follow-Upon 09-13-2024 Follow-Up [id number] Ike Flannery Yumi 1970 F Date Provider Department Center 09/13/2024 184-[id number] LUI [facility] Family History Adopted: Yes Problem Relation Age of Onset Heart attack Father Family Status - Relation Status Age at Father Level of Service:88912 MD OFFICE/OUTPATIENT ESTABLISHED MOD MDM 30 MIN [facility] CNOPon 09-07-2024 CNOP Operative Note (Enc) (NSCAMN) Encounter Status:Closed by JOSUE MCCAIN on 09/07/24 [facility] CNOVon 09-07-2024 CNOV Office Visit (NOGKCA ) IKE FLANNERY ([id number]) 1970 F Date Time Provider Department 09/07/24 9:00 AM PLACEMENT [facility] During your visit today, we recorded the following information about you: Pulse Blood pressure 63/minute 136/82 Alexander Browning RN 09/07/2024 2:26 PM Signed September 07, 2024 0722 Ike arrived ambulatory with: self. Transportation home verified: yes, with [facility], who will be picking her up today. Ike here for today for imaging, mask fitting, pre-planning for Icon mask based Gamma Knife Stereotactic Radiosurgery by radiation therapist, and single session mask based treatment. ID verified with patient with two identifiers, name and birthdate. OC Hinds assessed for the following: Does Ike have any pain? No. Pain 0 on scale of 0-10 Does Ike have: Difficulty chewing and/or swallowing: no Fall risk assessment: Not at risk for falls Concerns about physical or emotional abuse: no Allergies reviewed with patient, yes. [id number] Mask completed. To imaging for CT Scan and MRI. Ike Flannery returned to department for treatment # 1 of 1. Is patient on immunotherapy? No. Patient's Age: 53 Menstruation Status: Hysterectomy 1100 Decadron 4 mg po given prior to Gamma Knife SRS per order of Dr. Adán MD. 1101 Xanax 0.5 mg PO given per order of Dr. Adán MD, Alexander Browning RN. 1127 Patient assisted to treatment room. Gamma Knife SRS begun. 1247 Gamma Knife Stereotactic Radiosurgery Completed. 1300 Discharge instructions given to patient. Instructions reviewed by this nurse and patient verbalized an understanding. Pt then discharged. OC Hinds Colleen, RN 09/07/2024 11:06 AM Signed [facility] Gamma Knife Center Discharge Instructions As [...] nearest emergency room. These may or may not be symptoms of brain swelling. If you go to a physician or hospital other than the [facility] with any problem related to the Gamma Knife procedure, please call your physician, Dr. Sherly Mccain at [phone]. After your treatment, you may experience a mild headache. You may take non-aspirin pain medication, such as Tylenol, if you are having any [...] take any decadron for the remainder of today and stop taking any existing decadron medication. Please begin following the new decadron regimen below on 09/08/24: Start the day after your Gamma Knife Procedure: Decadron (Dexamethasone) 2 mg tablets: Take 4 mg (2 tablets) daily for 5 days: ( (Breakfast), Thursday (Breakfast), (Thursday (Breakfast), (Thursday (Breakfast), and Thursday (Breakfast), then Take 2 mg (1 tablet) daily for 5 days: (Thursday (Breakfast), Thursday (Breakfast), ( (Breakfast), (Thursday (Breakfast), and Thursday (Breakfast), then Stop Decadron. Take Decadron with a meal or snack. Pepcid (famotidine) 20 mg tablets: Take Pepcid 20 mg (1 tablet) daily while on Decadron. Stop Pepcid when you stop the Decadron. Resume all other regular medications. -Taking good care of your general health is an important step to recovery. Continue to eat well and get plenty of rest. If you have any non-urgent questions or concerns, please call your physician, Dr. Sherly Mccain at [phone] Thursday through Thursday 8:00 am to 5:00 pm. In the evening or on weekends, call [phone] or toll-free [phone]-[phone] and ask the resizer operator to page your neurosurgeon's resident prison teacher. Referring Provider: JOSUE MCCAIN [[id number]] Allergies As of Date: 09/07/2024 Noted Allergy Reaction MEPERIDINE 03/17/2018 14 - Other: See Comments 2 - Rash 7 - Swelling Comments: Other Reaction(s): Other, Unknown VANCOMYCIN 01/25/2024 14 - Other: See Comments Comments: Other Reaction(s): Other Intolerance: experienced acute kidney injury during a hospitalization, suspected due to vancomycin. Acute Kidney Injury TETRACYCLINE 01/25/2024 2 - Rash ADHESIVE 11/27/2021 2 - Rash CEFTAROLINE FOSAMIL 06/01/2024 14 - Other: See Comments (more content not included)... [facility] CT BRAIN WO IVCONon 09-08-[address] BRAIN WO IVCON * * *Final Report* * * DATE [...] base and imaged soft tissues are unremarkable. IMPRESSION: Imaging for gamma knife planning, no acute intracranial pathology. Gasoline Plant Operator: CARLOS Transcribe Date/Time: Sep 07 2024 9:09A Dictated by : SMILEY GASCA MD This examination was interpreted and the report reviewed and electronically signed by: SMILEY GASCA MD on Sep 07 2024 9:11AM EST [id number] [facility] CT Head WO contraston 2024 Radiology Study observation (narrative) [facility] IMPRESSION: Imaging for gamma knife planning, no acute intracranial pathology. Gasoline Plant Operator: [facility] Transcribe Date/Time: Sep 07 2024 9:09A Dictated by : SMILEY GASCA MD This examination was interpreted and the report reviewed and electronically signed by: SMILEY GASCA MD on Sep 07 2024 9:11AM EST DIVISION OF RADIOLOGY * * *Final Report* * * DATE [...] base and imaged soft tissues are unremarkable. DIVISION OF RADIOLOGY Provider, [facility] - 09/07/2024 * * *Final Report* * * DATE OF EXAM: Sep 07 2024 8:56AM [facility] 0504 - CT BRAIN WO IVCON / [...] gamma knife planning, no acute intracranial pathology. Gasoline Plant Operator: [facility] Transcribe Date/Time: Sep 07 2024 9:09A Dictated by : SMILEY GASCA MD This examination was interpreted and the report reviewed and electronically signed by: SMILEY GASCA MD on Sep 07 2024 9:11AM EST [facility] CT Head WO contrastOrdered B y: [facility] Provider on 09-07-2024 [facility] MR Guidance for stereotactic localization of Brain-- W contrast Ashwin 09-07-2024 IMPRESSION: Unchanged presumed metastases in the inferior left frontal lobe and cerebellar vermis. Unchanged small enhancing nodule at the periphery of the left frontal lobe, possibly an additional metastasis or an incidental meningioma. No new enhancing lesion. Gasoline Plant Operator: [facility] Transcribe Date/Time: Sep 07 2024 8:44A Dictated by : SMILEY GASCA MD This examination was interpreted and the report reviewed and electronically signed by: SMILEY GASCA MD on Sep 07 2024 8:54AM [facility] DIVISION OF RADIOLOGY * * *Final Report* * * DATE [...] or herniation. The basal cisterns are patent. DIVISION OF RADIOLOGY Provider, [facility] - 09/07/2024 * * *Final Report* * [...] an incidental meningioma. No new enhancing lesion. Gasoline Plant Operator: [facility] Transcribe Date/Time: Sep 07 2024 8:44A Dictated by : SMILEY GASCA MD This examination was interpreted and the report reviewed and electronically signed by: SMILEY GASCA MD on Sep 07 2024 8:54AM [facility] Radiology Study observation (narrative) [facility] MR Guidance for stereotactic localization of Brain-- W contrast IVOrdered By: [facility] Provider on 09-07-2024 [facility] MRI BRAIN LOCAL W IVCONon MRI BRAIN LOCAL W IVCON * * *Final Report* * * DATE [...] or herniation. The basal cisterns are patent. IMPRESSION: Unchanged presumed metastases in the inferior left frontal lobe and cerebellar vermis. Unchanged small enhancing nodule at the periphery of the left frontal lobe, possibly an additional metastasis or an incidental meningioma. No new enhancing lesion. 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 Transcribe Date/Time: Sep 07 2024 8:44A Dictated by : SMILEY GASCA MD This examination was interpreted and the report reviewed and electronically signed by: SMILEY GASCA MD on Sep 07 2024 8:54AM EST [id number] Normal [facility] CBC W Auto Differential pane l (Bld)on 09-01-2024 Basophils (Bld) [#/Vol] 10*3/uL Normal <0.11 [facility] Comment on above: Order Comment: Speci men Type: BLOOD SPECIMEN Ordering Facility: [facility] Address: [address] [place] [address] Performed By: #### 5 7021-8 #### [facility] CLIA [id number] [address] [place] [address] [place] Basophils/100 WBC (Bld) 0.1 % Normal [facility] Comment on above: Order Comment: Speci men Type: BLOOD SPECIMEN Ordering Facility: [facility] Address: [address] [place] [address] Performed By: #### 5 7021-8 #### [facility] CLIA [id number] [address] [place] [address] [place] Differential cell count method Nom (Bld) Auto Normal [facility] Comment on above: Order Comment: Speci men Type: BLOOD SPECIMEN Ordering Facility: [facility] Address: [address] [place] [address] Performed By: #### 5 7021-8 #### [facility] CLIA [id number] [address] [place] [address] [place] Eosinophils (Bld) [#/Vol] 10*3/uL Normal <0.46 [facility] Comment on above: Order Comment: Speci men Type: BLOOD SPECIMEN Ordering Facility: [facility] Address: [address] [place] [address] Performed By: #### 5 7021-8 #### [facility] CLIA [id number] [address] [place] [address] [place] Eosinophils/100 WBC (Bld) 0.0 % Normal [facility] Comment on above: Order Comment: Speci men Type: BLOOD SPECIMEN Ordering Facility: [facility] Address: [address] [place] [address] Performed By: #### 5 7021-8 #### [facility] CLIA [id number] [address] [place] [address] [place] Erythrocyte distribution width (RBC) [Ratio] 19.4 % High 11.5-15.0 [facility] Comment on above: Order Comment: Speci men Type: BLOOD SPECIMEN Ordering Facility: [facility] Address: [address] [place] [address] Performed By: #### 5 7021-8 #### [facility] CLIA [id number] [address] [place] [address] [place] Hematocrit (Bld) [Volume fraction] 28.1 % Low 36.0-46.0 [facility] Comment on above: Order Comment: Speci men Type: BLOOD SPECIMEN Ordering Facility: [facility] Address: [address] [place] [address] Performed By: #### 5 7021-8 #### [facility] CLIA [id number] [address] [place] [address] [place] Hemoglobin (Bld) [Mass/Vol] 9.5 g/dL Low 11.5-15.5 [facility] Comment on above: Order Comment: Speci men Type: BLOOD SPECIMEN Ordering Facility: [facility] Address: [address] [place] [address] Performed By: #### 5 7021-8 #### [facility] CLIA [id number] [address] [place] [address] [place] Immature granulocytes (Bld) [#/Vol] 0.07 10*3/uL Normal <0.10 [facility] Comment on above: Order Comment: Speci men Type: BLOOD SPECIMEN Ordering Facility: [facility] Address: [address] [place] [address] Performed By: #### 5 7021-8 #### [facility] CLIA [id number] [address] [place] [address] [place] Immature granulocytes/100 WBC (Bld) 0.9 % Normal [facility] Comment on above: Order Comment: Speci men Type: BLOOD SPECIMEN Ordering Facility: [facility] Address: [address] [place] [address] Performed By: #### 5 7021-8 #### [facility] CLIA [id number] [address] [place] [address] [place] Lymphocytes (Bld) [#/Vol] 1.22 10*3/uL Normal 1.00-4.00 [facility] Comment on above: Order Comment: Speci men Type: BLOOD SPECIMEN Ordering Facility: [facility] Address: [address] [place] [address] Performed By: #### 5 7021-8 #### [facility] CLIA [id number] [address] [place] [address] [place] Lymphocytes/100 WBC (Bld) 16.1 % Normal [facility] Comment on above: Order Comment: Speci men Type: BLOOD SPECIMEN Ordering Facility: [facility] Address: [address] [place] [address] Performed By: #### 5 7021-8 #### [facility] CLIA [id number] [address] [place] [address] [place] MCH (RBC) [Entitic mass] 32.8 pg Normal 26.0-34.0 [facility] Comment on above: Order Comment: Speci men Type: BLOOD SPECIMEN Ordering Facility: [facility] Address: [address] [place] [address] Performed By: #### 5 7021-8 #### [facility] CLIA [id number] [address] [place] [address] [place] MCHC (RBC) [Mass/Vol] 33.8 g/dL Normal 30.5-36.0 [facility] Comment on above: Order Comment: Speci men Type: BLOOD SPECIMEN Ordering Facility: [facility] Address: [address] [place] [address] Performed By: #### 5 7021-8 #### [facility] CLIA [id number] [address] [place] [address] [place] MCV (RBC) [Entitic vol] 96.9 fL Normal 80.0-100.0 [facility] Comment on above: Order Comment: Speci men Type: BLOOD SPECIMEN Ordering Facility: [facility] Address: [address] [place] [address] Performed By: #### 5 7021-8 #### [facility] CLIA [id number] [address] [place] [address] [place] Monocytes (Bld) [#/Vol] 0.38 10*3/uL Normal <0.87 [facility] Comment on above: Order Comment: Speci men Type: BLOOD SPECIMEN Ordering Facility: [facility] Address: [address] [place] [address] Performed By: #### 5 7021-8 #### [facility] CLIA [id number] [address] [place] [address] [place] Monocytes/100 WBC (Bld) 5.0 % Normal [facility] Comment on above: Order Comment: Speci men Type: BLOOD SPECIMEN Ordering Facility: [facility] Address: [address] [place] [address] Performed By: #### 5 7021-8 #### [facility] CLIA [id number] [address] [place] [address] [place] Neutrophils (Bld) [#/Vol] 5.88 10*3/uL Normal 1.45-7.50 [facility] Comment on above: Order Comment: Speci men Type: BLOOD SPECIMEN Ordering Facility: [facility] Address: [address] [place] [address] Performed By: #### 5 7021-8 #### [facility] CLIA [id number] [address] [place] [address] [place] Neutrophils/100 WBC (Bld) 77.9 % Normal [facility] Comment on above: Order Comment: Speci men Type: BLOOD SPECIMEN Ordering Facility: [facility] Address: [address] [place] [address] Performed By: #### 5 7021-8 #### [facility] CLIA [id number] [address] [place] [address] [place] Nucleated RBC (Bld) [#/Vol] 10*3/uL Normal <0.01 [facility] Comment on above: Order Comment: Speci men Type: BLOOD SPECIMEN Ordering Facility: [facility] Address: [address] [place] [address] Performed By: #### 5 7021-8 #### [facility] CLIA [id number] [address] [place] [address] [place] Nucleated RBC/100 WBC (Bld) [Ratio] 0.0 /100 WBC Normal [facility] Comment on above: Order Comment: Speci men Type: BLOOD SPECIMEN Ordering Facility: [facility] Address: [address] [place] [address] Performed By: #### 5 7021-8 #### [facility] CLIA [id number] [address] [place] [address] [place] Platelet mean volume (Bld) [Entitic vol] 9.4 fL Normal 9.0-12.7 [facility] Comment on above: Order Comment: Speci men Type: BLOOD SPECIMEN Ordering Facility: [facility] Address: [address] [place] [address] Performed By: #### 5 7021-8 #### [facility] CLIA [id number] [address] [place] [address] [place] Platelets (Bld) [#/Vol] 210 10*3/uL Normal 150-400 [facility] Comment on above: Order Comment: Speci men Type: BLOOD SPECIMEN Ordering Facility: [facility] Address: [address] [place] [address] Performed By: #### 5 7021-8 #### [facility] CLIA [id number] [address] [place] [address] [place] RBC (Bld) [#/Vol] 2.90 10*6/uL Low 3.90-5.20 [facility] Comment on above: Order Comment: Speci men Type: BLOOD SPECIMEN Ordering Facility: [facility] Address: [address] [place] [address] Performed By: #### 5 7021-8 #### [facility] CLIA [id number] [address] [place] [address] [place] WBC (Bld) [#/Vol] 7.56 10*3/uL Normal 3.70-11.00 [facility] Comment on above: Order Comment: Speci men Type: BLOOD SPECIMEN Ordering Facility: [facility] Address: [address] [place] [address] Performed By: #### 5 7021-8 #### [facility] CLIA [id number] [address] [place] [address] [place] CNDSon 09-01-2024 CNDS HNO ID: [id number] Author: EV CORTEZ DO Service: Oncology Author Type: Physician Type: Discharge Summary Filed: 09/01/2024 21:54 Note Text: DISCHARGE SUMMARY PATIENT NAME: Ike Flannery ADMISSION DATE: 08/26/2024 DISCHARGE DATE: 09/01/2024 ATTENDING PHYSICIAN: Ev Cortez Code Status: Full Code PCP: Kaye Manuel CNP, [employer]INEER[employer] TECHNOLOGIST Highest Readmission Risk Score: 20 The 30 day readmissions risk score is derived from an internally validated risk model which evaluates patient level characteristics, utilization history, medication orders and lab results up until the day of discharge. Patients with a score of 39 or above are considered highest risk for readmission. Specific patient level drivers will be listed at the bottom of the summary. TRANSITIONS OF CARE CRITICAL ISSUES: ROSS MEDICATION CHANGES: - Abx regimen for Mycobacterium per ID instructions. - Do not take your Xeloda when you leave. You can resume 1 week after radiation. Your oncologist will help manage this. -Take 4 mg dexamethasone once daily. This is a steroid. -Continue all other medications as ordered. 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 * HOSPITAL COURSE: Ike Flannery ( ) is a 53 year old woman with a history of right breast cancer s/p 16 cycles of R chest wall radiation (last 01/2024), s/p chemotherapy with pembolizumab, paclitaxel+carboplatin , doxorubicin+cyclophosp hamide, most recently started daily Xeloda 1500mg BID, as well as hypertension, presenting with focal neurologic deficits and new finding of brain metastases at [facility]. About 1.5 weeks prior to arrival, shortly after starting Xeloda, she noticed slurred speech and right hand weakness (e.g., difficulty signing her name). Her oncologist obtained a CT brain which showed a new intracranial mass, therefore she was sent to [facility] ED. They were not able to obtain an MRI due to the presence of a tissue putty mixer in her right breast. She was transferred to [facility] to coordinate MRI brain and to transition her multidisciplinary care. Currently she is managed by 4-5 hospitals in [facility] for oncology, ID and plastic surgery with scattered medical records, however would like one centralized medical center. 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 High-dose IV steroids with dexamethasone were started. Plastic Surgery was consulted and removed her right breast tissue putty mixer so that MRI could be done. MRI showed multiple enhancing lesion representing metastasis, with at least 3 definite metastasis in inferior vermis, and enhancement in left IAC apex of unclear etiology. Radiation oncology was consulted and recommended GKRS. #Right-sided breast cancer s/p bilateral mastectomy and radiation, currently on chemotherapy with capecitabine #Metastases to liver #Metastases to brain (reported by patient - no imaging available) - See above for oncologic history gathered from medical record review - No focal neurologic deficits at baseline (per pt and prior medical records) - Current Therapy: Capecitabine (Xeloda) 1500mg BID, started 08/03/24. This has been discontinued on discharge. - Symptoms of perceived dysgraphia and objective slurred speech for about 1.5 weeks (onset in mid-July 2024) - New brain lesions seen on CT brain obtained at outside hospital, which images are not available to us, MRI brain confirmed brain mets inpatient, 08/31/24. - Right breast tissue putty mixer removed before MRI on 08/30/24. - CT brain w/wo IV contrast 08/26/24: Enhancing lesion in the cerebellar vermis, li (more content not included)... Normal [facility] CONSULT PROGon 09-01-2024 CONSULT PROG HNO ID: [id number] Author: CHRISTY DA SILVA MD Service: Infectious Disease Author Type: Physician Type: Consult Progress Note Filed: 09/01/2024 14:01 Note Text: ID plan of care Date: September 01, 2024 Patient Name: Ike Flannery INTERVAL HISTORY/24HOUR EVENTS: Plastics recommended wound vac for L breast wound. MRI brain done, planned for gamma knife next Thursday Dexamethasone weaned to 4mg daily Afebrile Tmax 36.8C. WBC 7.5. Cr 1.1 Feeling well today, looking forward to going home. Active Antimicrobials (From admission, onward) Start Stop 08/31/24 0900 amikacin 900 mg in D5W 50 mL 900 mg, INTRAVENOUS, EVERY THU-THU-THU -- 08/29/24 2100 acyclovir 400 mg tab(s) (ZOVIRAX) 400 mg, ORAL, 2 TIMES DAILY -- 08/29/24 1800 clofazimine 100 mg cap(s) (LAMPRENE) 100 mg, ORAL, DAILY -- 08/29/24 1300 omadacycline tab 300 mg (NUZYRA) 300 mg, ORAL, DAILY -- 08/26/24 1500 imipenem-cilastatin 1 g in NaCl 0.9% 250 mL (PRIMAXIN) 1 g, INTRAVENOUS, EVERY 12 HOURS -- Current Facility-Administered Medications Medication Dose Route Frequency apixaban 5 mg tab(s) (ELIQUIS) 5 mg ORAL BID oxyCODONE IR 5 mg tab(s) (ROXICODONE) 5 mg ORAL q 4 H PRN dexAMETHasone 4 mg tab(s) (DECADRON) 4 mg ORAL DAILY WITH BREAKFAST omadacycline tab 300 mg (NUZYRA) 300 mg ORAL DAILY clofazimine 100 mg cap(s) (LAMPRENE) 100 mg ORAL DAILY acyclovir 400 mg tab(s) (ZOVIRAX) 400 mg ORAL BID amikacin 900 mg in D5W 50 mL 900 mg INTRAVENOUS -WE- famotidine 40 mg tab(s) (PEPCID) 40 mg ORAL DAILY potassium-sodium phosphates 1 packet (PHOS-NAK) 1 packet ORAL PC and HS acetaminophen 650 mg tab(s) (TYLENOL) 650 mg ORAL/FEEDING TUBE q 6 H PRN LORazepam 1 mg tab(s) (ATIVAN) 1 mg ORAL/FEEDING TUBE DAILY PRN capecitabine 1,500 mg tab(s) (XELODA) 1,500 mg ORAL BID NaCl 0.9% iv flush bag 20 mL INTRAVENOUS PRN carvedilol 12.5 mg tab(s) (COREG) 12.5 mg ORAL BID w MEALS gabapentin 300 mg cap(s) (NEURONTIN) 300 mg ORAL BID hydrOXYzine HCl 25 mg tab(s) (ATARAX) 25 mg ORAL q 4 H PRN spironolactone 12.5 mg tab(s) (ALDACTONE) 12.5 mg ORAL DAILY imipenem-cilastatin 1 g in NaCl 0.9% 250 mL (PRIMAXIN) 1 g INTRAVENOUS q 12 HR PHYSICAL EXAM BP 125/90 Pulse (!) 53 Temp 36.5 ?C (97.7 ?F) (Oral) Resp 17 Ht 177.8 cm (5' 10 ) Wt 88 kg (194 lb 0.1 oz) SpO2 100% BMI 27.84 kg/m? General: AANDOx3 Head: normocephalic, atraumatic Eyes, ears, nose, throat: EOMI, no scleral icterus, tongue midline, no thrush CV: RRR R breast surgical dressing in place, 1 ARTEMIO drain with serosanguinous output Lungs: no wheezes Abdomen: soft, nontender Gu: no CVA tenderness MSK: no swelling or joint erythema Neuro: no focal weakness Psych: calm LABS: Reviewed Recent Labs 09/01/24 0417 08/31/24 0421 08/30/24 0346 WBC 7.56 8.37 9.36 HB 9.5* 9.3* 9.4* HCT 28.1* 27.6* 27.7* PLT 210 209 242 NA 140 140 143 K 4.0 3.8 4.0 CHLOR 107 106 108* CO2 23 24 23 CREAT 1.03* 1.10* 1.06* BUN 19 19 19 GLUC 105* 102* 113* P 3.4 2.9 3.1 TPROT 5.7* 5.7* 6.1* ALB 3.7* 3.7* 4.0 MG 2.1 2.1 2.0 CA 8.9 9.1 9.7 ALKPHOS 75 77 82 TBILI 0.5 0.4 0.5 AST 72* 79* 62* ALT 109* 95* 86* MICRO: Reviewed Positive Micro-30 Days No results found for the last 720 hours. 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 Treated by ID (Dr Noguera in [place]) with Amikacin 750 mg MWF, Imipenem 1 g Q12H, and Omadacycline 300 mg daily - s/p R chest wall radiation - 02/26/2024: IANDD debridement and excision of infected seroma cavity on the left central breast with secondary closure, OR cx w/ M abscessus - 03/21/2024: L breast IANDD with adjancent tissue transfer reconstruction complicated by dehiscence and mediport exposure requiring another IANDD and Mediport removal on 05/02/2024 - exam on 06/01/24: Left breast wound measuring 14 x 3 cm with approximately 6 cm tunneling towards the previous port site proximally. Depth is 3/4 cm. The wound bed is healthy with granulation tissue. No surrounding erythema or necrosis. No purulent drainage. - 06/10/2024 breast cellulitis requiring another debridement on 06/14/2024- Now healed about 90% with some areas of fistulization around the edge. 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 Has been on combination imipenem, IV amkacin, omada (more content not included)... Normal [facility] Comprehensive metabolic 2000 panelon 09-01-2024 Albumin [Mass/Vol] 3.7 g/dL Low 3.9-4.9 [facility] Comment on above: Order Comment: Speci men Type: BLOOD SPECIMEN Ordering Facility: [facility] Address: [address] [place] [address] Performed By: #### 5 7021-8 #### [facility] CLIA [id number] [address] [place] [address] [place] [address] [place] ALP [Catalytic activity/Vol] 75 U/L Normal 34-123 [facility] Comment on above: Order Comment: Speci men Type: BLOOD SPECIMEN Ordering Facility: [facility] Address: [address] [place], [place] [address] Performed By: #### 5 7021-8 #### [facility] CLIA [id number] [address] [place], [place] [address] [place] ALT [Catalytic activity/Vol] 109 U/L High 7-38 [facility] Comment on above: Order Comment: Speci men Type: BLOOD SPECIMEN Ordering Facility: [facility] Address: [address] [place] [address] Performed By: #### 5 7021-8 #### [facility] CLIA [id number] [address] [place] [address] [place] Anion gap [Moles/Vol] 10 mmol/L Normal 8-15 [facility] Comment on above: Order Comment: Speci men Type: BLOOD SPECIMEN Ordering Facility: [facility] Address: [address] [place] [address] Performed By: #### 5 7021-8 #### [facility] CLIA [id number] [address] [place] [address] [place] AST [Catalytic activity/Vol] 72 U/L High 13-35 [facility] Comment on above: Order Comment: Speci men Type: BLOOD SPECIMEN Ordering Facility: [facility] Address: [address] [place] [address] Performed By: #### 5 7021-8 #### [facility] CLIA [id number] [address] [place], [place] [address] [place] Bilirubin [Mass/Vol] 0.5 mg/dL Normal 0.2-1.3 [facility] Comment on above: Order Comment: Speci men Type: BLOOD SPECIMEN Ordering Facility: [facility] Address: [address] [place], [place] [address] Performed By: #### 5 7021-8 #### [facility] CLIA [id number] [address] [place] [address] [place] Calcium [Mass/Vol] 8.9 mg/dL Normal 8.5-10.2 [facility] Comment on above: Order Comment: Speci men Type: BLOOD SPECIMEN Ordering Facility: [facility] Address: [address] [place] [address] Performed By: #### 5 7021-8 #### [facility] CLIA [id number] [address] [place] [address] [place] Chloride [Moles/Vol] 107 mmol/L Normal 98-107 [facility] Comment on above: Order Comment: Speci men Type: BLOOD SPECIMEN Ordering Facility: [facility] Address: [address] [place] [address] Performed By: #### 5 7021-8 #### [facility] CLIA [id number] [address] [place] [address] [place] CO2 [Moles/Vol] 23 mmol/L Normal 22-30 [facility] Comment on above: Order Comment: Speci men Type: BLOOD SPECIMEN Ordering Facility: [facility] Address: [address] [place] [address] Performed By: #### 5 7021-8 #### [facility] CLIA [id number] [address] [place] [address] [place] Creatinine [Mass/Vol] 1.03 mg/dL High 0.58-0.96 [facility] Comment on above: Order Comment: Speci men Type: BLOOD SPECIMEN Ordering Facility: [facility] Address: [address] [place] [address] Performed By: #### 5 7021-8 #### [facility] [facility] CLIA [id number] [address] [place] [address] [place] Creatinine and Glomerular filtration rate.predicted panel (S/P/Bld) 65 mL/min/1.73m??? Normal >=60 [facility] Comment on above: Order Comment: Anitha alex Type: BLOOD SPECIMEN Ordering Facility: [facility] Address: [address] [place] [address] Result Comment: Latasha mated Glomerular Filtration Rate (eGFR) is calculated using the 2020 CKD-EPI creatinine equation. This equation utilizes serum creatinine, sex, and age as parameters. The creatinine assay has traceable calibration to isotope dilution-mass spectrometry. Refer to KDIGO guidelines for clinical interpretation. In patients with unstable renal function, e.g. those with acute kidney injury, the eGFR may not accurately reflect actual GFR. Performed By: #### 5 7021-8 #### [facility] CLIA [id number] [address] [place] [address] [place] Glucose [Mass/Vol] 105 mg/dL High 74-99 [facility] Comment on above: Order Comment: Anitha alex Type: BLOOD SPECIMEN Ordering Facility: [facility] Address: [address] [place] [address] Result Comment: The [place] Diabetes Association (ADA) provides guidance for cutoff [...] Standards of Medical Care in Diabetes 2016, [place] [employer]. Diabetes Care. 2016.39(Suppl 1). Performed By: #### 5 7021-8 #### [facility] CLIA [id number] [address] [place] [address] [place] Potassium [Moles/Vol] 4.0 mmol/L Normal 3.7-5.1 [facility] Comment on above: Order Comment: Anitha alex Type: BLOOD SPECIMEN Ordering Facility: [facility] Address: [address] [place] [address] Performed By: #### 5 7021-8 #### [facility] CLIA [id number] [address] [place] [address] [place] Protein [Mass/Vol] 5.7 g/dL Low 6.3-8.0 [facility] Comment on above: Order Comment: Speci men Type: BLOOD SPECIMEN Ordering Facility: [facility] Address: [address] [place] [address] Performed By: #### 5 7021-8 #### [facility] CLIA [id number] [address] [place] [address] [place] Sodium [Moles/Vol] 140 mmol/L Normal 136-144 [facility] Comment on above: Order Comment: Speci men Type: BLOOD SPECIMEN Ordering Facility: [facility] Address: [address] [place] [address] Performed By: #### 5 7021-8 #### [facility] CLIA [id number] [address] [place] [address] [place] Urea nitrogen [Mass/Vol] 19 mg/dL Normal 7-21 [facility] Comment on above: Order Comment: Speci men Type: BLOOD SPECIMEN Ordering Facility: [facility] Address: [address] [place] [address] Performed By: #### 5 7021-8 #### [facility] CLIA [id number] [address] [place], [place] [address] [place] Magnesium SerPl-mCncon 09-01 Magnesium [Mass/Vol] 2.1 mg/dL Normal 1.7-2.3 [facility] Comment on above: Order Comment: Speci men Type: BLOOD SPECIMEN Ordering Facility: [facility] Address: [address] [place] [address] Performed By: #### 5 7021-8 #### [facility] CLIA [id number] [address] [place], [place] [address] [place] Phosphate SerPl-mCncon 09-01 Phosphate [Mass/Vol] 3.4 mg/dL Normal 2.7-4.8 [facility] Comment on above: Order Comment: Speci men Type: BLOOD SPECIMEN Ordering Facility: [facility] Address: [address] [place] [address] Performed By: #### 5 7021-8 #### [facility] CLIA [id number] [address] [place] [address] [place] SOCIAL WORKon 09-01-2024 SOCIAL WORK HNO ID: [id number] Author: Jenna BARILLAS LISW Service: Social Work Author Type: Supervisor Customer Complaint Service Type: Social Work Filed: 09/01/2024 17:00 Note Text: SOCIAL WORK PROGRESS NOTE Name: Ike Flannery Pt, Ike Flannery is admitted ((08.26.2024)with metastatic triple negative breast cancer; recurrent mycobacterium abscesses infection; new brain mass noted in CT. Support System in the community includes Spouse, Jean Carlos Becker, who is Emergency Contact. Currently, no Advance Directives Document in electronic record. Pt is anticipated to discharge home when medically ready. No identified psychosocial concerns at this time. Plan:: SW following along with Medical Oncology Team during this IP Stay on Unit G70. Signature: KIMBERLY Mcwilliams Oncology Clinical Supervisor Customer Complaint Service Pager: [phone] Date: September 01, 2024 Time: 4:55 PM Normal [facility] ALLIED HEALTHon 08-31-2024 ALLIED HEALTH HNO ID: [id number] Author: SUZETTE FRASER Art Therapist Service: Art Therapy Author Type: Therapist Type: Allied Health Filed: 08/31/2024 15:42 Note Text: ART THERAPY NOTE SERVICE DATE: 08/31/2024 SERVICE TIME: 3:05 Referred By: Resident/Fellow Reason for Referral: Emotional issues COMMENTS: Consult was received and appreciated. Pt was awake and alert, spouse bedside, when self and service introduced. She was pleasant and agreeable to session to assist with coping and reported pain. Session was ended d/t visit by another provider. Will follow up as able. SIGNATURE: Suzette L Fraser, Art Therapist PATIENT NAME: Ike Flannery DATE: August 31, 2024 TIME: 3:40 PM PAGER/CONTACT #: [phone] Normal [facility] ALLIED HEALTH HNO ID: [id number] Author: EDUARDO MEDRANO RT(R) Service: Radiology Author Type: Technologist Type: Allied Health Filed: 08/31/2024 07:07 Note Text: Radiology Service Progress Note PATIENT NAME: Ike Flannery DATE OF SERVICE: August 31, 2024 TIME: 7:06 AM PATIENT IDENTITY VERIFICATION COMPLETED USING TWO (2) IDENTIFIERS: Name and Date of confirmed by patient verbally. FALL SCREENING: Has the patient had 2 falls in the last year or 1 fall with injury or currently using an Ambulatory Assistive Device (Walker, Cane, Wheelchair, Crutches, etc.)? Inpatient: Screened on floor PATIENT GENDER DATA: Assigned female at . status: : No status: NO. PATIENT RELEVANT IMPLANT DATA REVIEWED: Yes PATIENT PRESENTS WITH AN IMPLANTABLE OR ATTACHED HAND THERMAL CUTTER: No RADIOLOGY DEPARTMENT: MR; Exam(s) Completed: Head: Routine Brain. Aromatherapy Administered: No PERIPHERAL IV DATA: Inpatient: see LDA documentation SIGNED BY: RT Susy(R) August 31, 2024 7:06 AM Normal [facility] Amikacin Trough SerPl-mCncon 08-31-2024 Amikacin trough [Mass/Vol] <0.8 Low 5.0-8.0 [facility] Comment on above: Order Comment: Speci men Type: BLOOD SPECIMENOrdering Facility: [facility] Address: [address] [place] [address] Result Comment: Refe rence ranges and high/low indicator flags are provided as general guidelines only. The treating physician must determine appropriate target levels/dosing based on the specific clinical situation. Result rechecked. Performed By: #### 3 321-7 ####[facility] [id number] [place] [address] [place] CBC W Auto Differential pane l (Bld)on 08-31-2024 Basophils (Bld) [#/Vol] 10*3/uL Normal <0.11 [facility] Comment on above: Order Comment: Speci men Type: BLOOD SPECIMEN Ordering Facility: [facility] Address: [address] [place] [address] Performed By: #### 2 777-1, , #### [facility] CLIA [id number] [address] [place] [address] [place] Basophils/100 WBC (Bld) 0.1 % Normal [facility] Comment on above: Order Comment: Speci men Type: BLOOD SPECIMEN Ordering Facility: [facility] Address: [address] [place] [address] Performed By: #### 2 777-1, , #### [facility] CLIA [id number] [address] [place] [address] [place] Differential cell count method Nom (Bld) Auto Normal [facility] Comment on above: Order Comment: Speci men Type: BLOOD SPECIMEN Ordering Facility: [facility] Address: [address] [place] [address] Performed By: #### 2 777-1, , #### [facility] CLIA [id number] [address] [place] [address] [place] Eosinophils (Bld) [#/Vol] 10*3/uL Normal <0.46 [facility] Comment on above: Order Comment: Speci men Type: BLOOD SPECIMEN Ordering Facility: [facility] Address: [address] [place] [address] Performed By: #### 2 777-1, , #### [facility] CLIA [id number] [address] [place], [place] [address] [place] Eosinophils/100 WBC (Bld) 0.0 % Normal [facility] Comment on above: Order Comment: Speci men Type: BLOOD SPECIMEN Ordering Facility: [facility] Address: [address] [place] [address] Performed By: #### 2 777-1, 59908-7, #### [facility] CLIA [id number] [address] [place] [address] [place] Erythrocyte distribution width (RBC) [Ratio] 19.5 % High 11.5-15.0 [facility] Comment on above: Order Comment: Speci men Type: BLOOD SPECIMEN Ordering Facility: [facility] Address: [address] [place] [address] Performed By: #### 2 777-1, 00819-2, #### [facility] CLIA [id number] [address] [place] [address] [place] Hematocrit (Bld) [Volume fraction] 27.6 % Low 36.0-46.0 [facility] Comment on above: Order Comment: Speci men Type: BLOOD SPECIMEN Ordering Facility: [facility] Address: [address] [place] [address] Performed By: #### 2 777-1, , #### [facility] CLIA [id number] [address] [place] [address] [place] Hemoglobin (Bld) [Mass/Vol] 9.3 g/dL Low 11.5-15.5 [facility] Comment on above: Order Comment: Speci men Type: BLOOD SPECIMEN Ordering Facility: [facility] Address: [address] [place] [address] Performed By: #### 2 777-1, 26416-0, #### [facility] CLIA [id number] [address] [place] [address] [place] Immature granulocytes (Bld) [#/Vol] 0.07 10*3/uL Normal <0.10 [facility] Comment on above: Order Comment: Speci men Type: BLOOD SPECIMEN Ordering Facility: [facility] Address: [address] [place] [address] Performed By: #### 2 777-1, 94503-6, #### [facility] CLIA [id number] [address] [place] [address] [place] Immature granulocytes/100 WBC (Bld) 0.8 % Normal [facility] Comment on above: Order Comment: Speci men Type: BLOOD SPECIMEN Ordering Facility: [facility] Address: [address] [place] [address] Performed By: #### 2 777-1, 77121-4, #### [facility] CLIA [id number] [address] [place] [address] [place] Lymphocytes (Bld) [#/Vol] 1.21 10*3/uL Normal 1.00-4.00 [facility] Comment on above: Order Comment: Speci men Type: BLOOD SPECIMEN Ordering Facility: [facility] Address: [address] [place] [address] Performed By: #### 2 777-1, , #### [facility] CLIA [id number] [address] [place] [address] [place] Lymphocytes/100 WBC (Bld) 14.5 % Normal [facility] Comment on above: Order Comment: Speci men Type: BLOOD SPECIMEN Ordering Facility: [facility] Address: [address] [place] [address] Performed By: #### 2 777-1, 61793-5, #### [facility] CLIA [id number] [address] [place] [address] [place] MCH (RBC) [Entitic mass] 32.6 pg Normal 26.0-34.0 [facility] Comment on above: Order Comment: Speci men Type: BLOOD SPECIMEN Ordering Facility: [facility] Address: [address] [place] [address] Performed By: #### 2 777-1, 91476-6, #### [facility] CLIA [id number] [address] [place] [address] [place] MCHC (RBC) [Mass/Vol] 33.7 g/dL Normal 30.5-36.0 [facility] Comment on above: Order Comment: Speci men Type: BLOOD SPECIMEN Ordering Facility: [facility] Address: [address] [place] [address] Performed By: #### 2 777-1, 67372-1, #### [facility] CLIA [id number] [address] [place] [address] [place] MCV (RBC) [Entitic vol] 96.8 fL Normal 80.0-100.0 [facility] Comment on above: Order Comment: Speci men Type: BLOOD SPECIMEN Ordering Facility: [facility] Address: [address] [place] [address] Performed By: #### 2 777-1, 75871-0, #### [facility] CLIA [id number] [address] [place] [address] [place] Monocytes (Bld) [#/Vol] 0.49 10*3/uL Normal <0.87 [facility] Comment on above: Order Comment: Speci men Type: BLOOD SPECIMEN Ordering Facility: [facility] Address: [address] [place] [address] Performed By: #### 2 777-1, 45943-8, #### [facility] CLIA [id number] [address] [place] [address] [place] Monocytes/100 WBC (Bld) 5.9 % Normal [facility] Comment on above: Order Comment: Speci men Type: BLOOD SPECIMEN Ordering Facility: [facility] Address: [address] [place] [address] Performed By: #### 2 777-1, 54470-4, #### [facility] CLIA [id number] [address] [place] [address] [place] Neutrophils (Bld) [#/Vol] 6.59 10*3/uL Normal 1.45-7.50 [facility] Comment on above: Order Comment: Speci men Type: BLOOD SPECIMEN Ordering Facility: [facility] Address: [address] [place] [address] Performed By: #### 2 777-1, , #### [facility] CLIA [id number] [address] [place] [address] [place] Neutrophils/100 WBC (Bld) 78.7 % Normal [facility] Comment on above: Order Comment: Speci men Type: BLOOD SPECIMEN Ordering Facility: [facility] Address: [address] [place] [address] Performed By: #### 2 777-1, , #### [facility] CLIA [id number] [address] [place] [address] [place] Nucleated RBC (Bld) [#/Vol] 10*3/uL Normal <0.01 [facility] Comment on above: Order Comment: Speci men Type: BLOOD SPECIMEN Ordering Facility: [facility] Address: [address] [place] [address] Performed By: #### 2 777-1, , #### [facility] CLIA [id number] [address] [place], [place] [address] [place] Nucleated RBC/100 WBC (Bld) [Ratio] 0.0 /100 WBC Normal [facility] Comment on above: Order Comment: Speci men Type: BLOOD SPECIMEN Ordering Facility: [facility] Address: [address] [place] [address] Performed By: #### 2 777-1, , #### [facility] CLIA [id number] [address] [place] [address] [place] Platelet mean volume (Bld) [Entitic vol] 9.3 fL Normal 9.0-12.7 [facility] Comment on above: Order Comment: Speci men Type: BLOOD SPECIMEN Ordering Facility: [facility] Address: [address] [place] [address] Performed By: #### 2 777-1, , #### [facility] CLIA [id number] [address] [place], [place] [address] [place] Platelets (Bld) [#/Vol] 209 10*3/uL Normal 150-400 [facility] Comment on above: Order Comment: Speci men Type: BLOOD SPECIMEN Ordering Facility: [facility] Address: [address] [place] [address] Performed By: #### 2 777-1, , #### [facility] CLIA [id number] [address] [place], [place] [address] [place] RBC (Bld) [#/Vol] 2.85 10*6/uL Low 3.90-5.20 [facility] Comment on above: Order Comment: Speci men Type: BLOOD SPECIMEN Ordering Facility: [facility] Address: [address] [place] [address] Performed By: #### 2 777-1, , #### [facility] CLIA [id number] [address] [place] [address] [place] WBC (Bld) [#/Vol] 8.37 10*3/uL Normal 3.70-11.00 [facility] Comment on above: Order Comment: Speci men Type: BLOOD SPECIMEN Ordering Facility: [facility] Address: [address] [place] [address] Performed By: #### 2 777-1, 37320-9, #### [facility] CLIA [id number] [address] [place] [address] [place] CONSULT PROGon 08-31-2024 CONSULT PROG HNO ID: [id number] Author: DEENA VU DO Service: Plastic Surgery Author Type: Resident Type: Consult Progress Note Filed: 08/31/2024 13:35 Note Text: PLASTIC SURGERY PROGRESS NOTE OR DATE: 08/30/2024 1 Day Post-Op Procedure(s) (LRB): REMOVAL OF TISSUE CARD MOUNTER(S) W/O INSERTION OF IMPLANT (Right) DEBRIDEMENT MUSCLE/FASCIAFIRST 20 SQ CM OR LESS TRUNK (Left) Hospital Day: 6 ASSESSMENT AND PLAN: 53 year old female with with metastatic breast cancer and subpectoral right breast Sientra AlloX2 TE placed 10/28/2023, now requiring MRI for new brain lesion in setting of neuro deficits to direct oncologic treatment plans. She is s/p TE removal today. She tolerated procedure well. Right breast ARTEMIO x [address] Left breast wound clean with healthy granulation tissue at base. - No additional surgical intervention necessary at this time from PRS standpoint - PRS to monitor ARTEMIO output. - Recommend transition to wound vac on left breast as wound is cleans with healthy granulation tissue at base. - Will discuss with staff re: resumption of eliquis - - - - - - - - - - - - - - - - - - - - - - - - - - - - - - - - - - - - - - - - - - - - - - - INTERVAL HISTORY: No problems overnight. Pain controlled. Tolerated diet. Ambulating. Denies fevers / chills. MEDICATIONS: Current Facility-Administered Medications Medication Dose Route Frequency NaCl 0.9% iv flush bag 20 mL INTRAVENOUS PRN carvedilol 12.5 mg tab(s) (COREG) 12.5 mg ORAL BID w MEALS gabapentin 300 mg cap(s) (NEURONTIN) 300 mg ORAL BID hydrOXYzine HCl 25 mg tab(s) (ATARAX) 25 mg ORAL q 4 H PRN spironolactone 12.5 mg tab(s) (ALDACTONE) 12.5 mg ORAL DAILY imipenem-cilastatin 1 g in NaCl 0.9% 250 mL (PRIMAXIN) 1 g INTRAVENOUS q 12 HR dexAMETHasone 4 mg tab(s) (DECADRON) 4 mg ORAL BID 9a/3p LORazepam 1 mg tab(s) (ATIVAN) 1 mg ORAL/FEEDING TUBE DAILY PRN capecitabine 1,500 mg tab(s) (XELODA) 1,500 mg ORAL BID potassium-sodium phosphates 1 packet (PHOS-NAK) 1 packet ORAL PC and HS acetaminophen 650 mg tab(s) (TYLENOL) 650 mg ORAL/FEEDING TUBE q 6 H PRN omadacycline tab 300 mg (NUZYRA) 300 mg ORAL DAILY clofazimine 100 mg cap(s) (LAMPRENE) 100 mg ORAL DAILY acyclovir 400 mg tab(s) (ZOVIRAX) 400 mg ORAL BID amikacin 900 mg in D5W 50 mL 900 mg INTRAVENOUS MO-WE-FR famotidine 40 mg tab(s) (PEPCID) 40 mg ORAL DAILY iv contrast (radiology procedure) INTRAVENOUS DIRECTED PRN PHYSICAL EXAM: BP 132/86 Pulse 69 Temp 36.8 ?C (98.2 ?F) (Oral) Resp 16 Ht 177.8 cm (5' 10 ) Wt 88 kg (194 lb 0.1 oz) SpO2 99% BMI 27.84 kg/m? General: WDWN. Wound: Right breast closed over drain. Steri strip in place over incision. No concern for fluid collection. ARTEMIO in place with output DATA: Intake/Output Summary (Last 24 hours) at 08/31/2024 1334 Last data filed at 08/30/2024 1430 Gross per 24 hour Intake 200 ml Output 0 ml Net 200 ml Recent Labs 08/31/24 0421 08/30/24 0346 08/29/24 0300 WBC 8.37 9.36 9.86 HB 9.3* 9.4* 9.1* HCT 27.6* 27.7* 27.1* PLT 209 242 242 NA 140 143 143 K 3.8 4.0 3.8 CHLOR 106 108* 109* CO2 24 23 21* BUN 19 19 18 CREAT 1.10* 1.06* 1.09* GLUC 102* 113* 104* CA 9.1 9.7 9.2 MG 2.1 2.0 2.0 P 2.9 3.1 3.8 SIGNATURE: Deena Vu DO PAGER: [phone] (Plastics pager) Date of Service: August 31, 2024 Normal [facility] CONSULT PROG HNO ID: [id number] Author: CHRISTY DA SILVA MD Service: Infectious Disease Author Type: Physician Type: Consult Progress Note Filed: 08/31/2024 10:37 Note Text: INFECTIOUS DISEASE CONSULT SERVICE PROGRESS NOTE Date: August 31, 2024 Patient Name: Ike Flannery INTERVAL HISTORY/24HOUR EVENTS: S/p 08/30/24 Procedure(s): 1. Excisional biopsy right breast skin 2. Explantation of right breast tissue putty mixer intact 3. Debridement of right breast pocket for closure and 20 x 20 cm Plastics recommended wound vac for L breast wound. MRI brain this morning Afebrile Tmax 36.5C. WBC 8.3. Cr 1.1 Feeling well today, no fevers or chills. Active Antimicrobials (From admission, onward) Start Stop 08/31/24 0900 amikacin 900 mg in D5W 50 mL 900 mg, INTRAVENOUS, EVERY THU-THU-THU -- 08/29/24 2100 acyclovir 400 mg tab(s) (ZOVIRAX) 400 mg, ORAL, 2 TIMES DAILY -- 08/29/24 1800 clofazimine 100 mg cap(s) (LAMPRENE) 100 mg, ORAL, DAILY -- 08/29/24 1300 omadacycline tab 300 mg (NUZYRA) 300 mg, ORAL, DAILY -- 08/26/24 1500 imipenem-cilastatin 1 g in NaCl 0.9% 250 mL (PRIMAXIN) 1 g, INTRAVENOUS, EVERY 12 HOURS -- Current Facility-Administered Medications Medication Dose Route Frequency iv contrast (radiology procedure) INTRAVENOUS DIRECTED PRN omadacycline tab 300 mg (NUZYRA) 300 mg ORAL DAILY clofazimine 100 mg cap(s) (LAMPRENE) 100 mg ORAL DAILY acyclovir 400 mg tab(s) (ZOVIRAX) 400 mg ORAL BID amikacin 900 mg in D5W 50 mL 900 mg INTRAVENOUS MO-WE-FR famotidine 40 mg tab(s) (PEPCID) 40 mg ORAL DAILY potassium-sodium phosphates 1 packet (PHOS-NAK) 1 packet ORAL PC and HS acetaminophen 650 mg tab(s) (TYLENOL) 650 mg ORAL/FEEDING TUBE q 6 H PRN dexAMETHasone 4 mg tab(s) (DECADRON) 4 mg ORAL BID 9a/3p LORazepam 1 mg tab(s) (ATIVAN) 1 mg ORAL/FEEDING TUBE DAILY PRN capecitabine 1,500 mg tab(s) (XELODA) 1,500 mg ORAL BID NaCl 0.9% iv flush bag 20 mL INTRAVENOUS PRN carvedilol 12.5 mg tab(s) (COREG) 12.5 mg ORAL BID w MEALS gabapentin 300 mg cap(s) (NEURONTIN) 300 mg ORAL BID hydrOXYzine HCl 25 mg tab(s) (ATARAX) 25 mg ORAL q 4 H PRN spironolactone 12.5 mg tab(s) (ALDACTONE) 12.5 mg ORAL DAILY imipenem-cilastatin 1 g in NaCl 0.9% 250 mL (PRIMAXIN) 1 g INTRAVENOUS q 12 HR PHYSICAL EXAM BP 123/74 Pulse 73 Temp 36.5 ?C (97.7 ?F) (Oral) Resp 17 Ht 177.8 cm (5' 10 ) Wt 88 kg (194 lb 0.1 oz) SpO2 98% BMI 27.84 kg/m? General: AANDOx3 Head: normocephalic, atraumatic Eyes, ears, nose, throat: EOMI, no scleral icterus, tongue midline, no thrush CV: RRR R breast surgical dressing in place, 1 ARTEMIO drain with serosanguinous output Lungs: no wheezes Abdomen: soft, nontender Gu: no CVA tenderness MSK: no swelling or joint erythema Neuro: no focal weakness Psych: calm LABS: Reviewed Recent Labs 08/31/24 0421 08/30/24 0346 08/29/24 0300 WBC 8.37 9.36 9.86 HB 9.3* 9.4* 9.1* HCT 27.6* 27.7* 27.1* PLT 209 242 242 NA 140 143 143 K 3.8 4.0 3.8 CHLOR 106 108* 109* CO2 24 23 21* CREAT 1.10* 1.06* 1.09* BUN 19 19 18 GLUC 102* 113* 104* P 2.9 3.1 3.8 TPROT 5.7* 6.1* 5.9* ALB 3.7* 4.0 3.9 MG 2.1 2.0 2.0 CA 9.1 9.7 9.2 ALKPHOS 77 82 86 TBILI 0.4 0.5 0.5 AST 79* 62* 51* ALT 95* 86* 72* MICRO: Reviewed Positive Micro-30 Days No results found for the last 720 hours. 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 Treated by ID (Dr Noguera in [place]) with Amikacin 750 mg MWF, Imipenem 1 g Q12H, and Omadacycline 300 mg daily - s/p R chest wall radiation - 02/26/2024: IANDD debridement and excision of infected seroma cavity on the left central breast with secondary closure, OR cx w/ M abscessus - 03/21/2024: L breast IANDD with adjancent tissue transfer reconstruction complicated by dehiscence and mediport exposure requiring another IANDD and Mediport removal on 05/02/2024 - exam on 06/01/24: Left breast wound measuring 14 x 3 cm with approximately 6 cm tunneling towards the previous port site proximally. Depth is 3/4 cm. The wound bed is healthy with granulation tissue. No surrounding erythema or necrosis. No purulent drainage. - 06/10/2024 breast cellulitis requiring another debridement on 06/14/2024- Now healed about 90% with some areas of fistulization around the edge. Patient being managed for Metastatic breast cancer (brain and possible liver)s/p neoadjuvant chemotherapy, right chest wall radiation and bilateral mastectomy complicated by mycobacterium abscessus infection requiring mul (more content not included)... [facility] Comprehensive metabolic 2000 panelon 08-31-2024 Albumin [Mass/Vol] 3.7 g/dL Low 3.9-4.9 [facility] Comment on above: Order Comment: Speci men Type: BLOOD SPECIMEN Ordering Facility: [facility] Address: [address] [place] [address] Performed By: #### 2 777-1, , #### [facility] CLIA [id number] [address] [place] [address] [place] ALP [Catalytic activity/Vol] 77 U/L Normal 34-123 [facility] Comment on above: Order Comment: Speci men Type: BLOOD SPECIMEN Ordering Facility: [facility] Address: [address] [place] [address] Performed By: #### 2 777-1, 35270-4, #### [facility] CLIA [id number] [address] [place] [address] [place] ALT [Catalytic activity/Vol] 95 U/L High 7-38 [facility] Comment on above: Order Comment: Speci men Type: BLOOD SPECIMEN Ordering Facility: [facility] Address: [address] [place] [address] Performed By: #### 2 777-1, , #### [facility] CLIA [id number] [address] [place] [address] [place] Anion gap [Moles/Vol] 10 mmol/L Normal 8-15 [facility] Comment on above: Order Comment: Speci men Type: BLOOD SPECIMEN Ordering Facility: [facility] Address: [address] [place], [place] [address] Performed By: #### 2 777-1, 10786-7, #### [facility] CLIA [id number] [address] [place] [address] [place] AST [Catalytic activity/Vol] 79 U/L High 13-35 [facility] Comment on above: Order Comment: Speci men Type: BLOOD SPECIMEN Ordering Facility: [facility] Address: [address] [place], [place] [address] Performed By: #### 2 777-1, 81001-5, #### [facility] CLIA [id number] [address] [place], [place] [address] [place] Bilirubin [Mass/Vol] 0.4 mg/dL Normal 0.2-1.3 [facility] Comment on above: Order Comment: Speci men Type: BLOOD SPECIMEN Ordering Facility: [facility] Address: [address] [place] [address] Performed By: #### 2 777-1, 68536-6, #### [facility] CLIA [id number] [address] [place] [address] [place] Calcium [Mass/Vol] 9.1 mg/dL Normal 8.5-10.2 [facility] Comment on above: Order Comment: Speci men Type: BLOOD SPECIMEN Ordering Facility: [facility] Address: [address] [place] [address] Performed By: #### 2 777-1, 53011-1, #### [facility] CLIA [id number] [address] [place] [address] [place] Chloride [Moles/Vol] 106 mmol/L Normal 98-107 [facility] Comment on above: Order Comment: Speci men Type: BLOOD SPECIMEN Ordering Facility: [facility] Address: [address] [place], [place] [address] Performed By: #### 2 777-1, 96353-4, #### [facility] CLIA [id number] [address] [place], [place] [address] [place] CO2 [Moles/Vol] 24 mmol/L Normal 22-30 [facility] Comment on above: Order Comment: Speci men Type: BLOOD SPECIMEN Ordering Facility: [facility] Address: [address] [place], [place] [address] Performed By: #### 2 777-1, , #### [facility] CLIA [id number] [address] [place], [place] [address] [place] Creatinine [Mass/Vol] 1.10 mg/dL High 0.58-0.96 [facility] Comment on above: Order Comment: Anitha alex Type: BLOOD SPECIMEN Ordering Facility: [facility] Address: [address] [place] [address] Performed By: #### 2 777-1, , #### [facility] CLIA [id number] [address] [place] [address] [place] Creatinine and Glomerular filtration rate.predicted panel (S/P/Bld) 60 mL/min/1.73m??? Normal >=60 [facility] Comment on above: Order Comment: Anitha alex Type: BLOOD SPECIMEN Ordering Facility: [facility] Address: [address] [place] [address] Result Comment: Latasha mated Glomerular Filtration Rate (eGFR) is calculated using the 2020 CKD-EPI creatinine equation. This equation utilizes serum creatinine, sex, and age as parameters. The creatinine assay has traceable calibration to isotope dilution-mass spectrometry. Refer to KDIGO guidelines for clinical interpretation. In patients with unstable renal function, e.g. those with acute kidney injury, the eGFR may not accurately reflect actual GFR. Performed By: #### 2 777-1, , #### [facility] CLIA [id number] [address] [place], [place] [address] [place] Glucose [Mass/Vol] 102 mg/dL High 74-99 [facility] Comment on above: Order Comment: Anitha alex Type: BLOOD SPECIMEN Ordering Facility: [facility] Address: [address] [place] [address] Result Comment: The [place] Diabetes Association (ADA) provides guidance for cutoff [...] Standards of Medical Care in Diabetes 2016, [place] [employer] Association. Diabetes Care. 2016.39(Suppl 1). Performed By: #### 2 777-1, , #### [facility] CLIA [id number] [address] [place] [address] [place] Potassium [Moles/Vol] 3.8 mmol/L Normal 3.7-5.1 [facility] Comment on above: Order Comment: Speci men Type: BLOOD SPECIMEN Ordering Facility: [facility] Address: [address] [place] [address] Performed By: #### 2 777-1, , #### [facility] CLIA [id number] [address] [place] [address] [place] Protein [Mass/Vol] 5.7 g/dL Low 6.3-8.0 [facility] Comment on above: Order Comment: Speci men Type: BLOOD SPECIMEN Ordering Facility: [facility] Address: [address] [place] [address] Performed By: #### 2 777-1, , #### [facility] CLIA [id number] [address] [place] [address] [place] Sodium [Moles/Vol] 140 mmol/L Normal 136-144 [facility] Comment on above: Order Comment: Speci men Type: BLOOD SPECIMEN Ordering Facility: [facility] Address: [address] [place] [address] Performed By: #### 2 777-1, , #### [facility] CLIA [id number] [address] [place] [address] [place] Urea nitrogen [Mass/Vol] 19 mg/dL Normal 7-21 [facility] Comment on above: Order Comment: Speci men Type: BLOOD SPECIMEN Ordering Facility: [facility] Address: [address] [place] [address] Performed By: #### 2 777-1, 67497-4, 59655-6 #### [facility] CLIA [id number] [address] [place] [address] [place] MRI BRAIN WO/W IVCONon 08-31 MRI BRAIN WO/W IVCON * * *Final Report* * * DATE [...] sulci, gyri, ventricles, CSF spaces, brain, bones and skull base without any additional enhancing lesions. No additional mass effect or collections. IMPRESSION: 1. Multiple enhancing lesions representing metastasis. 2. At least 3 definite metastasis with dominant in inferior vermis. 3. Enhancement at left IAC apex is of unclear etiology. Gasoline Plant Operator: CARLOS Transcribe Date/Time: Aug 31 2024 7:49A Dictated by : ANA BULLARD MD This examination was interpreted and the report reviewed and electronically signed by: ANA BULLARD MD on Aug 31 2024 7:54AM EST [id number] [facility] Magnesium SerPl-mCncon 08-31 Magnesium [Mass/Vol] 2.1 mg/dL Normal 1.7-2.3 [facility] Comment on above: Order Comment: Speci men Type: BLOOD SPECIMEN Ordering Facility: [facility] Address: [address] [place] [address] Performed By: #### 2 777-1, 17215-4, 91515-7 #### [facility] CLIA [id number] [address] [place] [address] [place] NURSING PROGon 08-31-2024 NURSING PROG HNO ID: [id number] Author: CHAZ WASHBURN RN Service: ? Author Type: Registered Nurse Type: Nursing Progress Note Filed: 08/31/2024 06:35 Note Text: Radiology Service Progress Note DATE OF SERVICE: August 31, 2024 TIME: 6:35 AM PATIENT WEIGHT: 194 LBS PATIENT IDENTITY VERIFICATION COMPLETED USING TWO (2) STANDARD IDENTIFIERS: Name and Date of confirmed by patient verbally and Name and Date of confirmed by identification band. FALL SCREENING: Has the patient had 2 falls in the last year or 1 fall with injury or currently using an Ambulatory Assistive Device (Walker, Cane, Wheelchair, Crutches, etc.)? Inpatient: Screened on floor PATIENT GENDER DATA: Assigned female at . status: : No status: NO. ALLERGIES: Reviewed and unchanged CONTRAST ALLERGY: No EXAM: MRI - CONTRAST TYPE: GROUP II IV SITE: Inpatient - Left Upper Arm PICC -WNL IV SITE APPEARANCE: Clean,Dry and Intact SIGNATURE: Chaz Washburn RN PATIENT NAME: Ike Flannery DATE: August 31, 2024 TIME: 6:35 AM [facility] NUTRITIONon 08-31-2024 NUTRITION HNO ID: [id number] Author: CHRISTIE KEYS DTR Service: Nutrition Therapy Author Type: Opener Verifier [employer] Type: Nutrition Filed: 08/31/2024 13:27 Note Text: NUTRITION THERAPY PIT SUPERVISOR NOTE SERVICE DATE: 08/31/2024 SERVICE TIME: 1230 Visit Type: Follow-Up Evaluation Goals Met: Met Plan of Care: Supplements: Ensure Max Follow-Up: [facility] Reassessment Nursing Admission Assessment Malnutrition Score: 0 Nutrition Intake: Diet Orders (From admission, onward) Start Ordered 08/30/24 1345 DIET REGULAR START NOW 08/30/24 1337 08/28/24 1115 SUPPLEMENT/SNACK PROVIDED START NOW Question Answer Comment Supplement 1 (19 years and up) IMPACT ADVANCED RECOVERY VANILLA Supplement 1 Frequency LUNCH 08/28/24 1108 Average Daily Calorie Intake (kcal): 1443 kcal Average Daily Protein Intake (gm): 53 gm Average intake over: 3 days Average Supplement Intake (kcal): 0 kcal Average Supplement Intake (gm): 0 gm Average supplement intake over: 3 days (The patient dislikes the Impact supplement and would like Ensure Max instead this has been pended.) Appetite: Good GI Symptoms: None Anthropometrics: Body mass index is 27.84 kg/m?. Usual Weight: 90.7 kg (200 lb) MNT Billing: $ Routine Care : 1 unit SIGNATURE: Christie Keys DTR PATIENT NAME: Ike Flannery DATE: August 31, 2024 TIME: 1:27 PM [facility] Phosphate SerPl-mCncon 08-31 Phosphate [Mass/Vol] 2.9 mg/dL Normal 2.7-4.8 [facility] Comment on above: Order Comment: Speci men Type: BLOOD SPECIMEN Ordering Facility: [facility] Address: [address] [place] [address] Performed By: #### 2 777-1, 64263-8, 83279-6 #### [facility] CLIA [id number] [address] [place] [address] [place] ANES POSTPROC EVALon 025 ANES POSTPROC EVAL HNO ID: [id number] Author: NEGAR BUTLER MD Service: ? Author Type: Anesthesiologist Type: Anesthesia Postprocedure Evaluation Filed: 08/30/2024 17:13 Note Text: POST ANESTHESIA EVALUATION NOTE : 1970 Procedure Summary Date: 08/30/24 Room / Location: [address] [facility] Anesthesia Start: 1208 Anesthesia Stop: 1333 Procedures: REMOVAL OF TISSUE CARD MOUNTER(S) W/O INSERTION OF IMPLANT (Right: Breast) DEBRIDEMENT MUSCLE/FASCIAFIRST 20 SQ CM OR LESS TRUNK (Left: Chest) Diagnosis: Cancer (HCC) History of reconstruction of both breasts (Cancer (HCC) [C80.1]) (History of reconstruction of both breasts [Z98.890]) Surgeons: Precious Colorado MD Responsible Provider: Negar Butler MD Anesthesia Type: general ASA Status: 3 Anesthesia Type: general Airway Type: ETT Last Vitals Vitals Value Taken Time BP 148/96 08/30/24 1519 Temp 36.3 ?C (97.3 ?F) 08/30/24 1519 Pulse 68 08/30/24 1519 Resp 18 08/30/24 1519 SpO2 100 % 08/30/24 1519 Post Anesthesia Patient Status Patient Evaluation: PACU. PACU/ICU Patient Condition: stable. Neurological Status: aware and responsive. Pulmonary Status: breathing comfortably on supplemental oxygen Airway Control: returned to baseline unsupported. Cardiovascular Status: stable. Pain Management: clinically adequate Postoperative Hydration: acceptable. Intraoperative Events: no significant anesthesia events Post Operative Nausea/Vomiting Status: no significant post operative nausea or vomiting Recommendation: continue current plan of care and further care per PACU/ICU/floor team. Anesthesia Observations No Documentation SIGNATURE: Negar Butler MD PATIENT NAME: Ike Flannery DATE: August 30, 2024 TIME: 5:13 PM CSN: [id number] [facility] ANES PRE-OPon 08-30-2024 ANES PRE-OP HNO ID: [id number] Author: NEGAR BUTLER MD Service: ? Author Type: Anesthesiologist Type: Anesthesia Preprocedure Evaluation Filed: 08/30/2024 12:25 Note Text: ANESTHESIOLOGY DAY OF SURGERY NOTE : 1970 Procedure Information Anesthesia Start Date/Time: 08/30/24 1208 Procedures: REMOVAL OF TISSUE CARD MOUNTER(S) W/O INSERTION OF IMPLANT (Right: Breast) DEBRIDEMENT MUSCLE/FASCIAFIRST 20 SQ CM OR LESS TRUNK (Left: Chest) Location: [facility] Surgeons: Precious Colorado MD Estimated body mass index is 27.84 kg/m? as calculated from the following: Height as of this encounter: 177.8 cm (5' 10 ). Weight as of this encounter: 88 kg (194 lb 0.1 oz). Most recent hematocrit and potassium results: Hematocrit 27.7 08/30/2024 Potassium 4.0 08/30/2024 Relevant Problems CARDIO (+) Hypertension -RENAL (+) Breast cancer metastasized to liver, unspecified laterality (HCC) I - PHYSICAL EVALUATION AIRWAY Patient intubated: No. Tracheostomy tube not present Mallampati: III. TM distance: >3 FB. Neck ROM: full ROM without neurological symptoms. Mouth opening: adequate. Short neck: no. Thick neck: no Quiroz present: no Lip Bite Test: II DENTAL Dental findings: teeth intact. II - ANESTHESIA PLAN ASA Score: 3 Anesthetic Plan: general Airway type: ETT The patient is not a current smoker. NPO Status: adequate Beta Jay Monitoring Plan Monitoring plan: standard ASA. Post Procedure Analgesic Plan Postoperative analgesic plan: multimodal analgesia. Informed Consent Anesthetic risks, benefits, alternatives, personnel and consent discussed: yes. Patient / Responsible Republican agrees to proceed: yes Patient / Surrogate agrees to blood products: Yes No vitals data found for the desired time range. Facility-Administered Medications as of 08/30/2024 Medication Dose Route Frequency NaCl 0.9% irrigation bottle X (OR/PROCEDURE) PRN omadacycline tab 300 mg (NUZYRA) 300 mg ORAL DAILY clofazimine 100 mg cap(s) (LAMPRENE) 100 mg ORAL DAILY acyclovir 400 mg tab(s) (ZOVIRAX) 400 mg ORAL BID [START ON 08/31/2024] amikacin 900 mg in D5W 50 mL 900 mg INTRAVENOUS MO-WE- famotidine 40 mg tab(s) (PEPCID) 40 mg ORAL DAILY potassium-sodium phosphates 1 packet (PHOS-NAK) 1 packet ORAL PC and HS acetaminophen 650 mg tab(s) (TYLENOL) 650 mg ORAL/FEEDING TUBE q 6 H PRN dexAMETHasone 4 mg tab(s) (DECADRON) 4 mg ORAL BID 9a/3p LORazepam 1 mg tab(s) (ATIVAN) 1 mg ORAL/FEEDING TUBE DAILY PRN capecitabine 1,500 mg tab(s) (XELODA) 1,500 mg ORAL BID NaCl 0.9% iv flush bag 20 mL INTRAVENOUS PRN carvedilol 12.5 mg tab(s) (COREG) 12.5 mg ORAL BID w MEALS gabapentin 300 mg cap(s) (NEURONTIN) 300 mg ORAL BID hydrOXYzine HCl 25 mg tab(s) (ATARAX) 25 mg ORAL q 4 H PRN spironolactone 12.5 mg tab(s) (ALDACTONE) 12.5 mg ORAL DAILY imipenem-cilastatin 1 g in NaCl 0.9% 250 mL (PRIMAXIN) 1 g INTRAVENOUS q 12 HR [COMPLETED] levoFLOXacin 750 mg tab(s) (LEVAQUIN) 750 mg ORAL DAILY (6 AM) [] heparin 5,000 Units injection 5,000 Units SUBCUTANEOUS q 8 H [] iv contrast (radiology procedure) INTRAVENOUS DIRECTED PRN Outpatient Medications as of 08/30/2024 Medication Sig amikacin (AMIKIN) 500 mg/2 mL soln ELIQUIS 5 mg tab(s) Take 5 mg by mouth. carvedilol (COREG) 12.5 mg tablet Take 12.5 mg by mouth. cyanocobalamin (VITAMIN B-12) 1,000 mcg tab Take 1,000 mcg by mouth. FEROSUL 325 mg (65 mg iron) tablet Take 1 tablet by mouth two times a day with meals. folic acid 1 mg tablet Take 1 mg by mouth. gabapentin (NEURONTIN) 300 mg capsule Take 300 mg by mouth two times a day. imipenem/cilastatin sodium (IMIPENEM-CILASTATIN INTRAVENOUS) Inject 1,000 mg intravenously two times a day. magnesium oxide 400 mg magnesium tab Take 400 mg by mouth. omadacycline (NUZYRA) 150 mg tablet Take 300 mg by mouth. pyridoxine, vitamin B6, (VITAMIN B6) 50 mg tablet Take 50 mg by mouth. spironolactone (ALDACTONE) 25 mg tablet Take 12.5 mg by mouth once daily. CLOFAZIMINE, BULK, MISC Take 100 mg by mouth. 0.9 % sodium chloride (NACL 0.9%) infusion cyclobenzaprine (FLEXERIL) 10 mg tablet Take 1 tablet by mouth every evening. diazePAM (VALIUM) 5 mg tablet Take 1 tablet (5 mg total) by mouth every 12 (twelve) hours as needed for anxiety or muscle spasms (Give 30min prior to dressing change) for up to 10 days for anxiety hydrOXYzine HCl (ATARAX) 25 mg tablet Take 25 mg by mouth. oxyCODONE IR (ROXICODONE) 10 mg tab Take 1 tablet by mouth every 6 hours as needed. oxyCODONE IR (ROXICODONE) 5 mg immediate release tablet Take 1 tablet (5 mg total) by mouth every 4 hours as needed for pain for up to 7 days. Max Daily Amount 30 mg potassium chloride (K-TAB) 10 mEq tablet TAKE TWO TABLETS BY MOUTH TWICE A DAY prochlorperazine (COMPAZINE) 10 mg tablet I have interviewed and examined the patient. I have reviewed the medical record and/or the pre-anesthesia evaluation, pertinent labs, an (more content not included)... [facility] BREAST MARKERSon 08-30-2024 AP BIOMARKER DISCLAIMER [facility] Comment on above: Order Comment: Speci men Type: BLOOD SPECIMEN Ordering Facility: [facility] Address: [address] [place] [address] Result Comment: Jarod lorenzo Developed Test (LDT) Disclaimer: Performance characteristics of immunohistochemical, immunofluorescent, and chromogenic in-situ hybridization tests have been determined by the performing laboratory within [facility]'s Candice Max [facility]ala Pathology and Laboratory Medicine Department ([facility], [facility], [facility], [facility], [facility], [facility], or [facility]) in a manner consistent with CLIA requirements. One or more of these tests may not have been cleared or approved by the FDA. [facility] is regulated under CLIA as qualified to perform high-complexity testing. These tests are used for clinical purposes. These should not be regarded as investigational or for research. Positive and negative controls stain appropriately. Performed By: #### 5 7021-8 #### [facility] CLIA [id number] [address] [place], [place] [address] [place] AP BLOCK ID [id number] [facility] Comment on above: Order Comment: Anitha abi Type: BLOOD SPECIMEN Ordering Facility: [facility] Address: [address] [place] [address] Performed By: #### 5 7021-8 #### [facility] CLIA [id number] [address] [place], [place] [address] [place] ASCO/CAP GUIDELINES FOR FIXATION MET Indeterminate [facility] Comment on above: Order Comment: Anitha men Type: BLOOD SPECIMEN Ordering Facility: [facility] Address: [address] [place] [address] Performed By: #### 5 7021-8 #### [facility] CLIA [id number] [address] [place], [place] [address] [place] BIOMARKER INTERPRETATION COMMENT AND REFERENCE RANGE [facility] Comment on above: Order Comment: Anitha abi Type: BLOOD SPECIMEN Ordering Facility: [facility] Address: [address] [place] [address] Result Comment: Refe rence Range for Hormone Receptors: Staining for MD of greater than or equal to 1% of the tumor cells is considered positive. Staining for ER of 1-10% of the tumor cells is considered low positive. Staining for ER of greater than 10% of the tumor cells is considered positive. Staining for ER or MD of less than 1% is considered negative. [...] expression profiles more similar to ER-negative cancers. Performed By: #### 5 7021-8 #### [facility] CLIA [id number] [address] [place] [address] BIOMARKER METHOD [facility] Comment on above: Order Comment: Speci men Type: BLOOD SPECIMEN Ordering Facility: [facility] Address: [address] [place] [address] Result Comment: Estr ogen Receptor: Food and Drug Administration (FDA) cleared: [facility], [place], [place] Primary Antibody: SP1 Progesterone Receptor: FDA cleared: [facility], [place], [place] Primary Antibody: IE2 HER2 (ERBB2) by IHC: FDA cleared: [employer], [place], [place] Primary Antibody:4B5 The hormone receptor tests were performed and reported in accordance with the guidelines approved by the [place] [employer] Oncologists and the College of [place] [employer]. Micaela SOTO, et al. Estrogen and Progesterone Receptor Testing in Breast Cancer: [place] [employer] Oncologists and the College of [place] Pathologists Guideline Update. Arch Pathol Lab Med. 2019;144(5):545-563. PMID: [id number]. The hormone receptor assays have been internally validated on decalcified tissues (for contra [facility] only). Estrogen and progesterone receptor results are valid if tissue was processed according to ASCO/CAP guidelines. Antibody and Detection System: Lannon's Pathway anti-HER2 rabbit monoclonal antibody (clone [id number]), Lannon Confirm anti-estrogen receptor rabbit monoclonal antibody (clone SP1) and Lannon anti-progesterone receptor rabbit monoclonal antibody (clone IE2) detected with the [employer] UltraView Univeral DAB Detection Kit (indirect biotin-free detection), [employer], [place], [place]. Control Slides: Cell line controls with high, equivocal, low, and negative HER2 protein expression, along with known positive control tissue and the patient's tissue, are evaluated for HER2 expression. The HER2 immunohistochemistry assay was developed, validated, scored, and reported in accordance with the guidelines approved by the [place] [employer] Oncologists and the College of [place] Pathologists. Bacilio SIEGEL et al. Arch Pathol Lab Med. 2018;1379(9) The HER2 assay has not been validated on decalcified tissues. Given the possibility of false negative results on decalcified specimens, results should be interpreted with caution. Performed By: #### 5 7021-8 #### [facility] CLIA [id number] [address] [place] [address] [place] BREAST TUMOR GRADE Not Graded Normal [facility] Comment on above: Order Comment: Speci men Type: BLOOD SPECIMEN Ordering Facility: [facility] Address: [address] [place] [address] Performed By: #### 5 7021-8 #### [facility] CLIA [id number] [address] [place] [address] [place] [facility] CASE NUMBER INVASIVE [id number] Normal [facility] Comment on above: Order Comment: Speci men Type: BLOOD SPECIMEN Ordering Facility: [facility] Address: [address] [place] [address] Performed By: #### 5 7021-8 #### [facility] CLIA [id number] [address] [place] [address] [place] COLD ISCHEMIA TIME Not Provided Normal [facility] Comment on above: Order Comment: Speci men Type: BLOOD SPECIMEN Ordering Facility: [facility] Address: [address] [place], [place] [address] Performed By: #### 5 7021-8 #### [facility] CLIA [id number] [address] [place] [address] [place] ESTROGEN RECEPTOR (% TUMOR STAINING) 5 Normal [facility] Comment on above: Order Comment: Speci men Type: BLOOD SPECIMEN Ordering Facility: [facility] Address: [address] [place] [address] Performed By: #### 5 7021-8 #### [facility] CLIA [id number] [address] [place] [address] [place] ESTROGEN RECEPTOR (STAINING INTENSITY) Weak Normal [facility] Comment on above: Order Comment: Speci men Type: BLOOD SPECIMEN Ordering Facility: [facility] Address: [address] [place], [place] [address] Performed By: #### 5 7021-8 #### [facility] CLIA [id number] [address] [place], [place] [address] [place] ESTROGEN RECEPTOR EXTERNAL CONTROL Present and Stained as Expected Normal [facility] Comment on above: Order Comment: Speci men Type: BLOOD SPECIMEN Ordering Facility: [facility] Address: [address] [place], [place] [address] Performed By: #### 5 7021-8 #### [facility] CLIA [id number] [address] [place], [place] [address] [place] ESTROGEN RECEPTOR INTERNAL CONTROL Absent Normal [facility] Comment on above: Order Comment: Speci men Type: BLOOD SPECIMEN Ordering Facility: [facility] Address: [address] [place], [place] [address] Performed By: #### 5 7021-8 #### [facility] CLIA [id number] [address] [place], [place] [address] [place] ESTROGEN RECEPTOR STATUS (INVASIVE) Positive Normal [facility] Comment on above: Order Comment: Speci men Type: BLOOD SPECIMEN Ordering Facility: [facility] Address: [address] [place], [place] [address] Performed By: #### 5 7021-8 #### [facility] CLIA [id number] [address] [place] [address] [place] FIXATIVE Formalin, 10% Neutra l Buffered Normal [facility] Comment on above: Order Comment: Speci men Type: BLOOD SPECIMEN Ordering Facility: [facility] Address: [address] [place] [address] Performed By: #### 5 7021-8 #### [facility] CLIA [id number] [address] [place] [address] [place] HER2 SCORE 0 Normal [facility] Comment on above: Order Comment: Speci men Type: BLOOD SPECIMEN Ordering Facility: [facility] Address: [address] [place] [address] Result Comment: HER2 Ultralow assessment for HER2 negative (0) tumors by ASCO/CAP Guidelines Percentage of tumor cells with membranous stainin Result:\X09\HER2 0 Ultralow Reference range: Ultralow HER2 expression is defined as IHC 0 by ASCO/CAP guidelines but with any membranous staining that is greater than 0 and less than or equal to 10%. Null HER2 expression is defined as IHC 0 by ASCO/CAP guidelines but with no membranous staining at 40X magnification. Philip A, Stephon X, Bethany R, Aurelia K, Jack CH, O'Vanessa JA, Mary H, Deya HeardY, Hank Q, Elena C, Andreas L, Oliver J, Im SA, L???vy C, Praveen W, Sera N, Fabio J, Rodrigo G, Gilma G; АЛЕКСАНДР-[id number] Trial Investigators. Trastuzumab Deruxtecan after Endocrine Therapy in Metastatic Breast Cancer. N Engl J Med. 2023Nov 14. doi: 10.1056/[id number]. Epub ahead of print. PMID: [id number]. Sedrick Jaramillo, Amando Heard, Bill Pedro, Azra A, John B, Mayco H, Yoshi E, Harpreet N, Pankaj C. Development and Validation of a HER2-Low Focused Immunohistochemical Scoring System With High-Interobserver Concordance: The [place] HER2-Low Breast Cancer Concordance Study. Mod Pathol. 2023;37(8):499789. doi: 10.1016/j.modpat.2023.074293. Epub 2023Aug 07. PMID: [id number]. Performed By: #### 5 7021-8 #### [facility] CLIA [id number] [address] [address] [place] HER2 STATUS (INVASIVE) Negative Normal [facility] Comment on above: Order Comment: Speci men Type: BLOOD SPECIMEN Ordering Facility: [facility] Address: [address] [place] [id number] Performed By: #### 5 7021-8 #### [facility] CLIA [id number] [address] [place] [place] [id number] [place] PROGESTERONE RECEPTOR (% TUMOR STAINING) 0 Normal [facility] Comment on above: Order Comment: Speci men Type: BLOOD SPECIMEN Ordering Facility: [facility] Address: [address] [place] [address] Performed By: #### 5 7021-8 #### [facility] CLIA [id number] [address] [place] [address] [place] PROGESTERONE RECEPTOR (STAINING INTENSITY) Not Applicable Normal [facility] Comment on above: Order Comment: Speci men Type: BLOOD SPECIMEN Ordering Facility: [facility] Address: [address] [place], [place] [address] Performed By: #### 5 7021-8 #### [facility] CLIA [id number] [address] [place], [place] [address] [place] PROGESTERONE RECEPTOR EXTERNAL CONTROL Present and Stained as Expected Normal [facility] Comment on above: Order Comment: Speci men Type: BLOOD SPECIMEN Ordering Facility: [facility] Address: [address] [place] [phone] Performed By: #### 5 7021-8 #### [facility] CLIA [id number] [address] [place] [address] [place] PROGESTERONE RECEPTOR INTERNAL CONTROL Absent Normal [facility] Comment on above: Order Comment: Speci men Type: BLOOD SPECIMEN Ordering Facility: [facility] Address: [address] [place] [place] [phone] Performed By: #### 5 7021-8 #### [facility] CLIA [id number] [address] [place], [place] [address] [place] PROGESTERONE RECEPTOR STATUS (INVASIVE) Negative Normal [facility] Comment on above: Order Comment: Speci men Type: BLOOD SPECIMEN Ordering Facility: [facility] Address: [address] [place] [address] Performed By: #### 5 7021-8 #### [facility] CLIA [id number] [address] [place] [address] [place] TOTAL FIXATION TIME Not Provided Normal [facility] Comment on above: Order Comment: Speci men Type: BLOOD SPECIMEN Ordering Facility: [facility] Address: [address] [place] [address] Performed By: #### 5 7021-8 #### [facility] CLIA [id number] [address] [place] [address] [place] TUMOR TYPE (INVASIVE) Carcinoma Normal [facility] Comment on above: Order Comment: Speci men Type: BLOOD SPECIMEN Ordering Facility: [facility] Address: [address] [place] [address] Performed By: #### 5 7021-8 #### [facility] CLIA [id number] [address] [place] [address] [place] WAS SPECIMEN DECALCIFIED No Normal [facility] Comment on above: Order Comment: Speci men Type: BLOOD SPECIMEN Ordering Facility: [facility] Address: [address] [place] [address] Performed By: #### 5 7021-8 #### [facility] CLIA [id number] [address] [place] [address] [place] CBC W Auto Differential pane l (Bld)on 08-30-2024 Basophils (Bld) [#/Vol] 10*3/uL Normal <0.11 [facility] Comment on above: Order Comment: Speci men Type: BLOOD SPECIMEN Ordering Facility: [facility] Address: [address] [place] [address] Performed By: #### 5 7021-8 #### [facility] CLIA [id number] [address] [place] [address] [place] Basophils/100 WBC (Bld) 0.1 % Normal [facility] Comment on above: Order Comment: Speci men Type: BLOOD SPECIMEN Ordering Facility: [facility] Address: [address] [place] [address] Performed By: #### 5 7021-8 #### [facility] CLIA [id number] [address] [place] [address] [place] Differential cell count method Nom (Bld) Auto Normal [facility] Comment on above: Order Comment: Speci men Type: BLOOD SPECIMEN Ordering Facility: [facility] Address: [address] [place] [address] Performed By: #### 5 7021-8 #### [facility] CLIA [id number] [address] [place] [address] [place] Eosinophils (Bld) [#/Vol] 10*3/uL Normal <0.46 [facility] Comment on above: Order Comment: Speci men Type: BLOOD SPECIMEN Ordering Facility: [facility] Address: [address] [place] [address] Performed By: #### 5 7021-8 #### [facility] CLIA [id number] [address] [place] [address] [place] Eosinophils/100 WBC (Bld) 0.0 % Normal [facility] Comment on above: Order Comment: Speci men Type: BLOOD SPECIMEN Ordering Facility: [facility] Address: [address] [place] [address] Performed By: #### 5 7021-8 #### [facility] CLIA [id number] [address] [place] [address] [place] Erythrocyte distribution width (RBC) [Ratio] 19.4 % High 11.5-15.0 [facility] Comment on above: Order Comment: Speci men Type: BLOOD SPECIMEN Ordering Facility: [facility] Address: [address] [place] [address] Performed By: #### 5 7021-8 #### [facility] CLIA [id number] [address] [place] [address] [place] Hematocrit (Bld) [Volume fraction] 27.7 % Low 36.0-46.0 [facility] Comment on above: Order Comment: Speci men Type: BLOOD SPECIMEN Ordering Facility: [facility] Address: [address] [place] [address] Performed By: #### 5 7021-8 #### [facility] CLIA [id number] [address] [place] [address] [place] Hemoglobin (Bld) [Mass/Vol] 9.4 g/dL Low 11.5-15.5 [facility] Comment on above: Order Comment: Speci men Type: BLOOD SPECIMEN Ordering Facility: [facility] Address: [address] [place] [address] Performed By: #### 5 7021-8 #### [facility] CLIA [id number] [address] [place] [address] [place] Immature granulocytes (Bld) [#/Vol] 0.11 10*3/uL High <0.10 [facility] Comment on above: Order Comment: Speci men Type: BLOOD SPECIMEN Ordering Facility: [facility] Address: [address] [place] [address] Performed By: #### 5 7021-8 #### [facility] CLIA [id number] [address] [place] [address] [place] Immature granulocytes/100 WBC (Bld) 1.2 % Normal [facility] Comment on above: Order Comment: Speci men Type: BLOOD SPECIMEN Ordering Facility: [facility] Address: [address] [place] [address] Performed By: #### 5 7021-8 #### [facility] CLIA [id number] [address] [place] [address] [place] Lymphocytes (Bld) [#/Vol] 1.09 10*3/uL Normal 1.00-4.00 [facility] Comment on above: Order Comment: Speci men Type: BLOOD SPECIMEN Ordering Facility: [facility] Address: [address] [place] [address] Performed By: #### 5 7021-8 #### [facility] CLIA [id number] [address] [place] [address] [place] Lymphocytes/100 WBC (Bld) 11.6 % Normal [facility] Comment on above: Order Comment: Speci men Type: BLOOD SPECIMEN Ordering Facility: [facility] Address: [address] [place] [address] Performed By: #### 5 7021-8 #### [facility] CLIA [id number] [address] [place] [address] [place] MCH (RBC) [Entitic mass] 32.8 pg Normal 26.0-34.0 [facility] Comment on above: Order Comment: Speci men Type: BLOOD SPECIMEN Ordering Facility: [facility] Address: [address] [place] [address] Performed By: #### 5 7021-8 #### [facility] CLIA [id number] [address] [place] [address] [place] MCHC (RBC) [Mass/Vol] 33.9 g/dL Normal 30.5-36.0 [facility] Comment on above: Order Comment: Speci men Type: BLOOD SPECIMEN Ordering Facility: [facility] Address: [address] [place] [address] Performed By: #### 5 7021-8 #### [facility] CLIA [id number] [address] [place] [address] [place] MCV (RBC) [Entitic vol] 96.5 fL Normal 80.0-100.0 [facility] Comment on above: Order Comment: Speci men Type: BLOOD SPECIMEN Ordering Facility: [facility] Address: [address] [place] [address] Performed By: #### 5 7021-8 #### [facility] CLIA [id number] [address] [place] [address] [place] Monocytes (Bld) [#/Vol] 0.32 10*3/uL Normal <0.87 [facility] Comment on above: Order Comment: Speci men Type: BLOOD SPECIMEN Ordering Facility: [facility] Address: [address] [place] [address] Performed By: #### 5 7021-8 #### [facility] CLIA [id number] [address] [place] [address] [place] Monocytes/100 WBC (Bld) 3.4 % Normal [facility] Comment on above: Order Comment: Speci men Type: BLOOD SPECIMEN Ordering Facility: [facility] Address: [address] [place] [address] Performed By: #### 5 7021-8 #### [facility] CLIA [id number] [address] [place] [address] [place] Neutrophils (Bld) [#/Vol] 7.83 10*3/uL High 1.45-7.50 [facility] Comment on above: Order Comment: Speci men Type: BLOOD SPECIMEN Ordering Facility: [facility] Address: [address] [place] [address] Performed By: #### 5 7021-8 #### [facility] CLIA [id number] [address] [place] [address] [place] Neutrophils/100 WBC (Bld) 83.7 % Normal [facility] Comment on above: Order Comment: Speci men Type: BLOOD SPECIMEN Ordering Facility: [facility] Address: [address] [place] [address] Performed By: #### 5 7021-8 #### [facility] CLIA [id number] [address] [place] [address] [place] Nucleated RBC (Bld) [#/Vol] 10*3/uL Normal <0.01 [facility] Comment on above: Order Comment: Speci men Type: BLOOD SPECIMEN Ordering Facility: [facility] Address: [address] [place] [address] Performed By: #### 5 7021-8 #### [facility] CLIA [id number] [address] [place] [address] [place] Nucleated RBC/100 WBC (Bld) [Ratio] 0.0 /100 WBC Normal [facility] Comment on above: Order Comment: Speci men Type: BLOOD SPECIMEN Ordering Facility: [facility] Address: [address] [place] [address] Performed By: #### 5 7021-8 #### [facility] CLIA [id number] [address] [place] [address] [place] Platelet mean volume (Bld) [Entitic vol] 9.6 fL Normal 9.0-12.7 [facility] Comment on above: Order Comment: Speci men Type: BLOOD SPECIMEN Ordering Facility: [facility] Address: [address] [place] [address] Performed By: #### 5 7021-8 #### [facility] CLIA [id number] [address] [place] [address] [place] Platelets (Bld) [#/Vol] 242 10*3/uL Normal 150-400 [facility] Comment on above: Order Comment: Speci men Type: BLOOD SPECIMEN Ordering Facility: [facility] Address: [address] [place] [address] Performed By: #### 5 7021-8 #### [facility] CLIA [id number] [address] [place] [address] [place] RBC (Bld) [#/Vol] 2.87 10*6/uL Low 3.90-5.20 [facility] Comment on above: Order Comment: Speci men Type: BLOOD SPECIMEN Ordering Facility: [facility] Address: [address] [place] [address] Performed By: #### 5 7021-8 #### [facility] CLIA [id number] [address] [place] [address] [place] WBC (Bld) [#/Vol] 9.36 10*3/uL Normal 3.70-11.00 [facility] Comment on above: Order Comment: Speci men Type: BLOOD SPECIMEN Ordering Facility: [facility] Address: [address] [place] [address] Performed By: #### 5 7021-8 #### [facility] CLIA [id number] [address] [place] [address] [place] Comprehensive metabolic 2000 panelon 08-30-2024 Albumin [Mass/Vol] 4.0 g/dL Normal 3.9-4.9 [facility] Comment on above: Order Comment: Speci men Type: BLOOD SPECIMEN Ordering Facility: [facility] Address: [address] [place] [address] Performed By: #### 5 7021-8 #### [facility] CLIA [id number] [address] [place] [address] [place] ALP [Catalytic activity/Vol] 82 U/L Normal 34-123 [facility] Comment on above: Order Comment: Speci men Type: BLOOD SPECIMEN Ordering Facility: [facility] Address: [address] [place] [address] Performed By: #### 5 7021-8 #### [facility] CLIA [id number] [address] [place] [address] [place] ALT [Catalytic activity/Vol] 86 U/L High 7-38 [facility] Comment on above: Order Comment: Speci men Type: BLOOD SPECIMEN Ordering Facility: [facility] Address: [address] [place], [place] [address] Performed By: #### 5 7021-8 #### [facility] CLIA [id number] [address] [place], [place] [address] [place] Anion gap [Moles/Vol] 12 mmol/L Normal 8-15 [facility] Comment on above: Order Comment: Speci men Type: BLOOD SPECIMEN Ordering Facility: [facility] Address: [address] [place] [address] Performed By: #### 5 7021-8 #### [facility] CLIA [id number] [address] [place] [address] [place] AST [Catalytic activity/Vol] 62 U/L High 13-35 [facility] Comment on above: Order Comment: Speci men Type: BLOOD SPECIMEN Ordering Facility: [facility] Address: [address] [place] [address] Performed By: #### 5 7021-8 #### [facility] CLIA [id number] [address] [place] [address] [place] Bilirubin [Mass/Vol] 0.5 mg/dL Normal 0.2-1.3 [facility] Comment on above: Order Comment: Speci men Type: BLOOD SPECIMEN Ordering Facility: [facility] Address: [address] [place], [place] [address] Performed By: #### 5 7021-8 #### [facility] CLIA [id number] [address] [place], [place] [address] [place] Calcium [Mass/Vol] 9.7 mg/dL Normal 8.5-10.2 [facility] Comment on above: Order Comment: Speci men Type: BLOOD SPECIMEN Ordering Facility: [facility] Address: [address] [place], [place] [address] Performed By: #### 5 7021-8 #### [facility] CLIA [id number] [address] [place] [address] [place] Chloride [Moles/Vol] 108 mmol/L High 98-107 [facility] Comment on above: Order Comment: Speci men Type: BLOOD SPECIMEN Ordering Facility: [facility] Address: [address] [place] [address] Performed By: #### 5 7021-8 #### [facility] CLIA [id number] [address] [place] [address] [place] CO2 [Moles/Vol] 23 mmol/L Normal 22-30 [facility] Comment on above: Order Comment: Speci men Type: BLOOD SPECIMEN Ordering Facility: [facility] Address: [address] [place] [address] Performed By: #### 5 7021-8 #### [facility] CLIA [id number] [address] [place] [address] [place] Creatinine [Mass/Vol] 1.06 mg/dL High 0.58-0.96 [facility] Comment on above: Order Comment: Speci men Type: BLOOD SPECIMEN Ordering Facility: [facility] Address: [address] [place] [address] Performed By: #### 5 7021-8 #### [facility] CLIA [id number] [address] [place] [address] [place] Creatinine and Glomerular filtration rate.predicted panel (S/P/Bld) 63 mL/min/1.73m??? Normal >=60 [facility] Comment on above: Order Comment: Speci men Type: BLOOD SPECIMEN Ordering Facility: [facility] Address: [address] [place] [address] Result Comment: Latasha mated Glomerular Filtration Rate (eGFR) is calculated using the 2020 CKD-EPI creatinine equation. This equation utilizes serum creatinine, sex, and age as parameters. The creatinine assay has traceable calibration to isotope dilution-mass spectrometry. Refer to KDIGO guidelines for clinical interpretation. In patients with unstable renal function, e.g. those with acute kidney injury, the eGFR may not accurately reflect actual GFR. Performed By: #### 5 7021-8 #### [facility] [place] [id number] [address] [place] [address] [place] Glucose [Mass/Vol] 113 mg/dL High 74-99 [facility] Comment on above: Order Comment: Speci men Type: BLOOD SPECIMEN Ordering Facility: [facility] Address: [address] [place] [address] Result Comment: The [place] Diabetes [employer] (ADA) provides guidance for cutoff [...] Standards of Medical Care in Diabetes 2016, [place] [employer]. Diabetes Care. 2016.39(Suppl 1). Performed By: #### 5 7021-8 #### [facility] CLIA [id number] [address] [place] [address] [place] Potassium [Moles/Vol] 4.0 mmol/L Normal 3.7-5.1 [facility] Comment on above: Order Comment: Speci men Type: BLOOD SPECIMEN Ordering Facility: [facility] Address: [address] [place] [address] Performed By: #### 5 7021-8 #### [facility] [place] [id number] [address] [place] [address] [place] Protein [Mass/Vol] 6.1 g/dL Low 6.3-8.0 [facility] Comment on above: Order Comment: Speci men Type: BLOOD SPECIMEN Ordering Facility: [facility] Address: [address] [place], [place] [address] Performed By: #### 5 7021-8 #### [facility] CLIA [id number] [address] [place] [address] [place] Sodium [Moles/Vol] 143 mmol/L Normal 136-144 [facility] Comment on above: Order Comment: Speci men Type: BLOOD SPECIMEN Ordering Facility: [facility] Address: [address] [place] [address] Performed By: #### 5 7021-8 #### [facility] CLIA [id number] [address] [place] [address] [place] Urea nitrogen [Mass/Vol] 19 mg/dL Normal 7-21 [facility] Comment on above: Order Comment: Speci men Type: BLOOD SPECIMEN Ordering Facility: [facility] Address: [address] [place] [address] Performed By: #### 5 7021-8 #### [facility] CLIA [id number] [address] [place] [address] [place] Magnesium SerPl-mCncon 08-30 Magnesium [Mass/Vol] 2.0 mg/dL Normal 1.7-2.3 [facility] Comment on above: Order Comment: Speci men Type: BLOOD SPECIMEN Ordering Facility: [facility] Address: [address] [place] [address] Performed By: #### 2 777-1, 49441-1, 37417-2 #### [facility] CLIA [id number] [address] [place], [place] [address] [place] OPERATIVE NOon 08-30-2024 OPERATIVE NO HNO ID: [id number] Author: PRECIOUS COLORADO MD Service: Plastic Surgery Author Type: Physician Type: Operative Report Filed: 08/30/2024 13:04 Note Text: PLASTIC SURGERY OPERATION NOTE LOG ID: [id number] Surgery/Procedure Date: 08/30/2024 Incision/Procedure Start Time: 12:39 PM Incision Close/Procedure End Time: Surgeon(s)/Procedurali st(s) and Wood Pile Driver Operator(s): Surgeons and Role: * Precious Colorado MD - Primary * Deena Vu DO - Resident - Assisting * Ralph Durbin MD - Resident - Assisting Procedure(s): 1. Excisional biopsy right breast skin 2. Explantation of right breast tissue putty mixer intact 3. Debridement of right breast pocket for closure and 20 x 20 cm Anesthesia: General Findings: Intact textured implant Indications: This is a 53-year-old female who presented with concern for brain metastasis requiring additional intervention. She had 2 port tissue putty mixer in place and was unable to get appropriate workup in order to complete treatment assessment. Is recommended she undergo tissue putty mixer removal. Response alternatives were present including bleeding, infection, scarring, pain, asymmetry, delays in wound healing, need for additional procedures. Patient understood and agreed to proceed. Procedure Details: Consent was obtained preoperatively. Patient was brought the operating room placed on table in supine position. A signed and was completed. General anesthesia was induced. A timeout was completed. The chest was prepped with Betadine usual sterile fashion. Began by inspecting the left chest wound which had a healthy better granulation tissue did not require any debridement. On the right breast there was a palpable lesion that measured about 1 x 1 cm within the incision on the vertical portion of her Altamirano pattern. We designed a fusiform incision including this lesion along the length of the vertical incision and excised the in entirety. This was sent for pathological evaluation. We then entered the breast implant capsule and noted an intact textured Sientra putty mixer. This was perforated with a 15 blade scalpel and the fluid was injected. The putty mixer was removed without difficulty. There is no other concerning lesions and the capsule was otherwise intact. Capsule was extensively fully fulgurated with a electrocautery tip in order to facilitate closure. The incision was infiltrated with local anesthesia. We then placed a 15 Wallisian helpless Garfield drain within the wound bed and secured this through a separate stab incision with a 2-0 nylon. We then approximated the capsule with 3-0 Monocryl in interrupted fashion followed by 3-0 Monocryl deep dermal fashion followed by 4-0 Monocryl in subcuticular fashion. This was dressed with Steri-Strips followed by fluffs. The left chest was dressed with a wet-to-dry dressing followed by ABDs and Attila bandage. Patient Toller procedure well sent recovery in stable condition. I was present scrubbed for the duration procedure. I performed the entire procedure with resident assistance. Estimated Blood Loss: 10 mls Specimens: ID Type Source Tests Collected by Time Destination A : right breast skin Tissue Soft Tissue (Not otherwise specified) SURGICAL PATHOLOGY Precious Colorado MD 08/30/2024 12:40 PM B : right breast putty mixer Implant/Device/Foreign Body Hardware/Device/Foreig n Body SURGICAL PATHOLOGY Precious Colorado MD 08/30/2024 12:41 PM Complications: None Pre-Op/Pre-Procedure Diagnosis: s/p right breast tissue putty mixer incompatible with MRI Post-Op/Post-Procedure Diagnosis: Same as above SIGNATURE: Precious Colorado MD PATIENT NAME: Ike Flannery DATE: August 30, 2024 TIME: 1:00 PM PAGER/CONTACT #: Normal [facility] Pathology biopsy report Fredrick (Tiss)on 08-30-2024 AP DISCLAIMER Normal [facility] Comment on above: Order Comment: Speci men Type: BLOOD SPECIMEN Ordering Facility: [facility] Address: [address] [place] [address] Result Comment: Jarod Key Test (LDT) Disclaimer: Performance characteristics of immunohistochemical, immunofluorescent, and chromogenic in-situ hybridization tests have been determined by the performing laboratory within [facility] Pathology and Laboratory Medicine Department ([facility], [facility], [facility], [facility], [facility], [facility], or [facility]) in a manner consistent with CLIA requirements. One or more of these tests may not have been cleared or approved by the FDA. [facility] is regulated under CLIA as qualified to perform high-complexity testing. These tests are used for clinical purposes. These should not be regarded as investigational or for research. Positive and negative controls stain appropriately. Performed By: #### 5 7021-8 #### [facility] CLIA [id number] [address] [place] [address] [place] [address] [place] CASE REPORT Normal [facility] Comment on above: Order Comment: Specjenna alex Type: BLOOD SPECIMEN Ordering Facility: [facility] Address: [address] [place] [address] Result Comment: Surg [facility] Pathology Report Case: [id number] Authorizing Provider: Precious Colorado MD Collected: 08/30/2024 12:40 PM Ordering Location: Admitting Received: 08/30/2024 01:02 PM Pathologist: Tracie Hutchinson MD Specimens: A) - Soft Tissue (Not otherwise specified), right breast skin B) - Hardware/Device/Foreign Body, right breast putty mixer Performed By: #### 5 7021-8 #### [facility] CLIA [id number] [address] [place] [address] [place] CLINICAL HISTORY Normal [facility] Comment on above: Order Comment: Anitha alex Type: BLOOD SPECIMEN Ordering Facility: [facility] Address: [address] [place] [address] Result Comment: Pre- op diagnosis: Cancer (HCC) [C80.1] History of reconstruction of both breasts [Z98.890] Performed By: #### 5 7021-8 #### [facility] [place] [id number] [address] [place] [address] [place] DIAGNOSIS COMMENT The morphologic features are compatible with breast origin. The lesion measures up to 10 mm and extends to inked specimen margins. ER, MD and HER2 are pending and will be reported separately. Normal [facility] Comment on above: Order Comment: Speci abi Type: BLOOD SPECIMEN Ordering Facility: [facility] Address: [address] [place] [address] Performed By: #### 5 7021-8 #### [facility] CLIA [id number] [address] [place] [address] FINAL DIAGNOSIS Normal [facility] Comment on above: Order Comment: Anitha alex Type: BLOOD SPECIMEN Ordering Facility: [facility] Address: [address] [place] [address] Result Comment: A. R ight breast skin, excision: - Carcinoma involving dermis, see comment. B. Right breast, putty mixer removal: - Grossly unremarkable, collapsed, textured putty mixer (Gross examination only). SS/MLG at 1420 EDT Performed By: #### 5 7021-8 #### [facility] CLIA [id number] [address] [place] [address] [place] GROSS DESCRIPTION Normal [facility] Comment on above: Order Comment: Speci men Type: BLOOD SPECIMEN Ordering Facility: [facility] Address: [address] [place] [address] Result Comment: A. S oft Tissue (Not otherwise specified) Received in formalin [...] submitted as follows: A1: Tips A2-A3: Body HMZ 08/30/24 4:17 PM Gross examination performed at [facility], [address] [place] [address] B. Hardware/Device/Foreign Body Received fresh labeled as right breast tissue putty mixer is a collapsed textured putty mixer weighing 144.10 g and measuring 15.0 x 14.0 x 2.0 cm with the following inscription ALLOX2 SIENTRA FH 14 . No soft tissue is present. No sections are submitted. The specimen is reviewed with Dr. Kerns. Gross examination only. ML 08/30/24 1:20 PM Gross examination performed at [facility], [address] [place] [address] Performed By: #### 5 7021-8 #### [facility] CLIA [id number] [address] [place] [address] [place] Phosphate SerPl-mCncon 08-30 Phosphate [Mass/Vol] 3.1 mg/dL Normal 2.7-4.8 [facility] Comment on above: Order Comment: Speci men Type: BLOOD SPECIMEN Ordering Facility: [facility] Address: [address] [place] [address] Performed By: #### 2 777-1, 12038-2, 44400-6 #### [facility] CLIA [id number] [address] [place] [address] [place] Tiss Path Bx reporton 2024 FINAL PERFORMING LAB Normal [facility] Comment on above: Order Comment: Speci men Type: BLOOD SPECIMEN Ordering Facility: [facility] Address: [address] [place] [address] Result Comment: Diag nostic interpretation performed at: [facility], [address] [place] [address] CLIA# [id number] Cow Buyer: Derick Meadows MD Performed By: #### 5 7021-8 #### [facility] CLIA [id number] [address] [place] [address] [place] Result Comment: Diag nostic interpretation performed at: [facility], [address] [place] [address] CLIA# [id number] Cow Buyer: Derick Meadows MD Electronically signed out by: Tracie Hutchinson MD CBC W Auto Differential pane l (Bld)on 08-29-2024 Basophils (Bld) [#/Vol] 10*3/uL Normal <0.11 [facility] Comment on above: Order Comment: Speci men Type: BLOOD SPECIMEN Ordering Facility: [facility] Address: [address] [place] [address] Performed By: #### 5 7021-8 #### [facility] CLIA [id number] [address] [place] [address] [place] Basophils/100 WBC (Bld) 0.1 % Normal [facility] Comment on above: Order Comment: Speci men Type: BLOOD SPECIMEN Ordering Facility: [facility] Address: [address] [place] [address] Performed By: #### 5 7021-8 #### [facility] CLIA [id number] [address] [place] [address] [place] Differential cell count method Nom (Bld) Auto Normal [facility] Comment on above: Order Comment: Speci men Type: BLOOD SPECIMEN Ordering Facility: [facility] Address: [address] [place] [address] Performed By: #### 5 7021-8 #### [facility] CLIA [id number] [address] [place] [address] [place] Eosinophils (Bld) [#/Vol] 10*3/uL Normal <0.46 [facility] Comment on above: Order Comment: Speci men Type: BLOOD SPECIMEN Ordering Facility: [facility] Address: [address] [place] [address] Performed By: #### 5 7021-8 #### [facility] CLIA [id number] [address] [place] [address] [place] Eosinophils/100 WBC (Bld) 0.0 % Normal [facility] Comment on above: Order Comment: Speci men Type: BLOOD SPECIMEN Ordering Facility: [facility] Address: [address] [place] [address] Performed By: #### 5 7021-8 #### [facility] CLIA [id number] [address] [place] [address] [place] Erythrocyte distribution width (RBC) [Ratio] 19.1 % High 11.5-15.0 [facility] Comment on above: Order Comment: Speci men Type: BLOOD SPECIMEN Ordering Facility: [facility] Address: [address] [place] [address] Performed By: #### 5 7021-8 #### [facility] CLIA [id number] [address] [place] [address] [place] Hematocrit (Bld) [Volume fraction] 27.1 % Low 36.0-46.0 [facility] Comment on above: Order Comment: Speci men Type: BLOOD SPECIMEN Ordering Facility: [facility] Address: [address] [place] [address] Performed By: #### 5 7021-8 #### [facility] CLIA [id number] [address] [place] [address] [place] Hemoglobin (Bld) [Mass/Vol] 9.1 g/dL Low 11.5-15.5 [facility] Comment on above: Order Comment: Speci men Type: BLOOD SPECIMEN Ordering Facility: [facility] Address: [address] [place] [address] Performed By: #### 5 7021-8 #### [facility] CLIA [id number] [address] [place] [address] [place] Immature granulocytes (Bld) [#/Vol] 0.08 10*3/uL Normal <0.10 [facility] Comment on above: Order Comment: Speci men Type: BLOOD SPECIMEN Ordering Facility: [facility] Address: [address] [place] [address] Performed By: #### 5 7021-8 #### [facility] CLIA [id number] [address] [place] [address] [place] Immature granulocytes/100 WBC (Bld) 0.8 % Normal [facility] Comment on above: Order Comment: Speci men Type: BLOOD SPECIMEN Ordering Facility: [facility] Address: [address] [place] [address] Performed By: #### 5 7021-8 #### [facility] CLIA [id number] [address] [place] [address] [place] Lymphocytes (Bld) [#/Vol] 0.90 10*3/uL Low 1.00-4.00 [facility] Comment on above: Order Comment: Speci men Type: BLOOD SPECIMEN Ordering Facility: [facility] Address: [address] [place] [address] Performed By: #### 5 7021-8 #### [facility] CLIA [id number] [address] [place] [address] [place] Lymphocytes/100 WBC (Bld) 9.1 % Normal [facility] Comment on above: Order Comment: Speci men Type: BLOOD SPECIMEN Ordering Facility: [facility] Address: [address] [place] [address] Performed By: #### 5 7021-8 #### [facility] CLIA [id number] [address] [place] [address] [place] MCH (RBC) [Entitic mass] 31.9 pg Normal 26.0-34.0 [facility] Comment on above: Order Comment: Speci men Type: BLOOD SPECIMEN Ordering Facility: [facility] Address: [address] [place] [address] Performed By: #### 5 7021-8 #### [facility] CLIA [id number] [address] [place] [address] [place] MCHC (RBC) [Mass/Vol] 33.6 g/dL Normal 30.5-36.0 [facility] Comment on above: Order Comment: Speci men Type: BLOOD SPECIMEN Ordering Facility: [facility] Address: [address] [place] [address] Performed By: #### 5 7021-8 #### [facility] CLIA [id number] [address] [place] [address] [place] MCV (RBC) [Entitic vol] 95.1 fL Normal 80.0-100.0 [facility] Comment on above: Order Comment: Speci men Type: BLOOD SPECIMEN Ordering Facility: [facility] Address: [address] [place] [address] Performed By: #### 5 7021-8 #### [facility] CLIA [id number] [address] [place] [address] [place] Monocytes (Bld) [#/Vol] 0.43 10*3/uL Normal <0.87 [facility] Comment on above: Order Comment: Speci men Type: BLOOD SPECIMEN Ordering Facility: [facility] Address: [address] [place] [address] Performed By: #### 5 7021-8 #### [facility] CLIA [id number] [address] [place] [address] [place] Monocytes/100 WBC (Bld) 4.4 % Normal [facility] Comment on above: Order Comment: Speci men Type: BLOOD SPECIMEN Ordering Facility: [facility] Address: [address] [place] [address] Performed By: #### 5 7021-8 #### [facility] CLIA [id number] [address] [place] [address] [place] Neutrophils (Bld) [#/Vol] 8.44 10*3/uL High 1.45-7.50 [facility] Comment on above: Order Comment: Speci men Type: BLOOD SPECIMEN Ordering Facility: [facility] Address: [address] [place] [address] Performed By: #### 5 7021-8 #### [facility] CLIA [id number] [address] [place] [address] [place] Neutrophils/100 WBC (Bld) 85.6 % Normal [facility] Comment on above: Order Comment: Speci men Type: BLOOD SPECIMEN Ordering Facility: [facility] Address: [address] [place] [address] Performed By: #### 5 7021-8 #### [facility] CLIA [id number] [address] [place] [address] [place] Nucleated RBC (Bld) [#/Vol] 10*3/uL Normal <0.01 [facility] Comment on above: Order Comment: Speci men Type: BLOOD SPECIMEN Ordering Facility: [facility] Address: [address] [place] [address] Performed By: #### 5 7021-8 #### [facility] CLIA [id number] [address] [place] [address] [place] Nucleated RBC/100 WBC (Bld) [Ratio] 0.0 /100 WBC Normal [facility] Comment on above: Order Comment: Speci men Type: BLOOD SPECIMEN Ordering Facility: [facility] Address: [address] [place] [address] Performed By: #### 5 7021-8 #### [facility] CLIA [id number] [address] [place] [address] [place] Platelet mean volume (Bld) [Entitic vol] 9.2 fL Normal 9.0-12.7 [facility] Comment on above: Order Comment: Speci men Type: BLOOD SPECIMEN Ordering Facility: [facility] Address: [address] [place] [address] Performed By: #### 5 7021-8 #### [facility] CLIA [id number] [address] [place] [address] [place] Platelets (Bld) [#/Vol] 242 10*3/uL Normal 150-400 [facility] Comment on above: Order Comment: Speci men Type: BLOOD SPECIMEN Ordering Facility: [facility] Address: [address] [place] [address] Performed By: #### 5 7021-8 #### [facility] CLIA [id number] [address] [place] [address] [place] RBC (Bld) [#/Vol] 2.85 10*6/uL Low 3.90-5.20 [facility] Comment on above: Order Comment: Speci men Type: BLOOD SPECIMEN Ordering Facility: [facility] Address: [address] [place] [address] Performed By: #### 5 7021-8 #### [facility] CLIA [id number] [address] [place] [address] [place] WBC (Bld) [#/Vol] 9.86 10*3/uL Normal 3.70-11.00 [facility] Comment on above: Order Comment: Speci men Type: BLOOD SPECIMEN Ordering Facility: [facility] Address: [address] [place] [address] Performed By: #### 5 7021-8 #### [facility] CLIA [id number] [address] [place] [address] [place] CONSULTon 08-29-2024 CONSULT HNO ID: [id number] Author: RJ KERR APRN.PROGRESSIVE DIE MAKER Service: Wound Care Team Author Type: Clinical Nurse Specialist Type: Consults Filed: 08/29/2024 07:38 Note Text: Wound Care Consult Team Assessment Note: PATIENT NAME: Ike Flannery WCCT was consulted regarding a wound on the right breast. Plastics saw the patient on 08/26 and per their note, plans for OR on 08/30 for the right breast wound. WCCT will defer the consult at this time. Please reengage after OR if recommendations are needed. Rj Kerr, MSN, PLANNING LEAD, ACNS-BC, CWOCN [phone] Normal [facility] CONSULT PROGon 08-29-2024 CONSULT PROG HNO ID: [id number] Author: CHRISTY DA SILVA MD Service: Infectious Disease Author Type: Physician Type: Consult Progress Note Filed: 08/29/2024 12:46 Note Text: INFECTIOUS DISEASE CONSULT SERVICE PROGRESS NOTE Date: August 29, 2024 Patient Name: Ike Flannery INTERVAL HISTORY/24HOUR EVENTS: Afebrile, Tmax 36.6C. WBC rising 7.5 to 9.8. Started on dexamethasone 08/27 LFTs downtrending (AST 51, ALT 72) Feeling well today. Active Antimicrobials (From admission, onward) Start Stop 08/26/24 1700 amikacin 900 mg in D5W 50 mL 900 mg, INTRAVENOUS, EVERY THU-THU-THU -- 08/26/24 1500 imipenem-cilastatin 1 g in NaCl 0.9% 250 mL (PRIMAXIN) 1 g, INTRAVENOUS, EVERY 12 HOURS -- Home : clofazamine and omadacycline Current Facility-Administered Medications Medication Dose Route Frequency potassium-sodium phosphates 1 packet (PHOS-NAK) 1 packet ORAL PC and HS acetaminophen 650 mg tab(s) (TYLENOL) 650 mg ORAL/FEEDING TUBE q 6 H PRN dexAMETHasone 4 mg tab(s) (DECADRON) 4 mg ORAL BID 9a/3p LORazepam 1 mg tab(s) (ATIVAN) 1 mg ORAL/FEEDING TUBE DAILY PRN capecitabine 1,500 mg tab(s) (XELODA) 1,500 mg ORAL BID NaCl 0.9% iv flush bag 20 mL INTRAVENOUS PRN carvedilol 12.5 mg tab(s) (COREG) 12.5 mg ORAL BID w MEALS gabapentin 300 mg cap(s) (NEURONTIN) 300 mg ORAL BID hydrOXYzine HCl 25 mg tab(s) (ATARAX) 25 mg ORAL q 4 H PRN spironolactone 12.5 mg tab(s) (ALDACTONE) 12.5 mg ORAL DAILY imipenem-cilastatin 1 g in NaCl 0.9% 250 mL (PRIMAXIN) 1 g INTRAVENOUS q 12 HR amikacin 900 mg in D5W 50 mL 900 mg INTRAVENOUS MO-WE- heparin 5,000 Units injection 5,000 Units SUBCUTANEOUS q 8 H PHYSICAL EXAM BP 149/95 Pulse 73 Temp 36.4 ?C (97.5 ?F) Resp 16 Ht 177.8 cm (5' 10 ) Wt 88 kg (194 lb 0.1 oz) SpO2 100% BMI 27.84 kg/m? General: AANDOx3 Head: normocephalic, atraumatic Eyes, ears, nose, throat: EOMI, no scleral icterus, tongue midline, no thrush CV: RRR L breast wound: pink healthy appearing tissue. No oozing or bloody discharge. No slough. Lungs: no wheezes Abdomen: soft, nontender Gu: no CVA tenderness MSK: no swelling or joint erythema Neuro: no focal weakness Psych: calm LABS: Reviewed Recent Labs 08/29/24 0300 08/28/24 0258 08/27/24 0329 WBC 9.86 7.55 3.94 HB 9.1* 9.1* 9.4* HCT 27.1* 26.6* 27.3* PLT 242 222 224 NA 143 139 140 K 3.8 3.4* 3.5* CHLOR 109* 106 106 CO2 21* 22 24 CREAT 1.09* 1.10* 1.15* BUN 18 14 13 GLUC 104* 144* 96 P 3.8 2.4* 3.1 TPROT 5.9* 6.0* 5.8* ALB 3.9 3.9 3.9 MG 2.0 2.0 2.0 CA 9.2 9.5 9.5 ALKPHOS 86 90 101 TBILI 0.5 0.5 0.5 AST 51* 49* 74* ALT 72* 71* 91* MICRO: Reviewed Positive Micro-30 Days No results found for the last 720 hours. 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 Treated by ID (Dr Noguera in [place]) with Amikacin 750 mg MWF, Imipenem 1 g Q12H, and Omadacycline 300 mg daily - s/p R chest wall radiation - 02/26/2024: IANDD debridement and excision of infected seroma cavity on the left central breast with secondary closure, OR cx w/ M abscessus - 03/21/2024: L breast IANDD with adjancent tissue transfer reconstruction complicated by dehiscence and mediport exposure requiring another IANDD and Mediport removal on 05/02/2024 - exam on 06/01/24: Left breast wound measuring 14 x 3 cm with approximately 6 cm tunneling towards the previous port site proximally. Depth is 3/4 cm. The wound bed is healthy with granulation tissue. No surrounding erythema or necrosis. No purulent drainage. - 06/10/2024 breast cellulitis requiring another debridement on 06/14/2024- Now healed about 90% with some areas of fistulization around the edge. 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 Has been on combination imipenem, IV amkacin, omadacycline, clofazimine for her M abscessus. 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 No carbapenemases detected. Also susceptible to cefepime and zosyn She had CT brain done as she had new slurred speech and was found to have right sided brain mass. Transferred to [facility] for management. Needs right tissue putty mixer to be removed in order to get MRI in order to be evaluated for radiation therapy. Planned for (more content not included)... Normal [facility] Comprehensive metabolic 2000 panelon 08-29-2024 Albumin [Mass/Vol] 3.9 g/dL Normal 3.9-4.9 [facility] Comment on above: Order Comment: Speci abi Type: BLOOD SPECIMEN Ordering Facility: [facility] Address: [address] [place] [address] Performed By: #### 5 7021-8 #### [facility] CLIA [id number] [address] [place] [address] [place] ALP [Catalytic activity/Vol] 86 U/L Normal 34-123 [facility] Comment on above: Order Comment: Phyliciai abi Type: BLOOD SPECIMEN Ordering Facility: [facility] Address: [address] [place] [address] Performed By: #### 5 7021-8 #### [facility] CLIA [id number] [address] [place] [address] [place] ALT [Catalytic activity/Vol] 72 U/L High 7-38 [facility] Comment on above: Order Comment: Phyliciai abi Type: BLOOD SPECIMEN Ordering Facility: [facility] Address: [address] [place], [place] [address] Performed By: #### 5 7021-8 #### [facility] CLIA [id number] [address] [place] [address] [place] Anion gap [Moles/Vol] 13 mmol/L Normal 8-15 [facility] Comment on above: Order Comment: Speci men Type: BLOOD SPECIMEN Ordering Facility: [facility] Address: [address] [place] [address] Performed By: #### 5 7021-8 #### [facility] CLIA [id number] [address] [place] [address] [place] AST [Catalytic activity/Vol] 51 U/L High 13-35 [facility] Comment on above: Order Comment: Speci men Type: BLOOD SPECIMEN Ordering Facility: [facility] Address: [address] [place] [address] Performed By: #### 5 7021-8 #### [facility] CLIA [id number] [address] [place] [address] [place] Bilirubin [Mass/Vol] 0.5 mg/dL Normal 0.2-1.3 [facility] Comment on above: Order Comment: Speci men Type: BLOOD SPECIMEN Ordering Facility: [facility] Address: [address] [place] [address] Performed By: #### 5 7021-8 #### [facility] CLIA [id number] [address] [place], [place] [address] [place] Calcium [Mass/Vol] 9.2 mg/dL Normal 8.5-10.2 [facility] Comment on above: Order Comment: Speci men Type: BLOOD SPECIMEN Ordering Facility: [facility] Address: [address] [place] [address] Performed By: #### 5 7021-8 #### [facility] CLIA [id number] [address] [place] [address] [place] Chloride [Moles/Vol] 109 mmol/L High 98-107 [facility] Comment on above: Order Comment: Speci men Type: BLOOD SPECIMEN Ordering Facility: [facility] Address: [address] [place] [address] Performed By: #### 5 7021-8 #### [facility] CLIA [id number] [address] [place] [address] [place] CO2 [Moles/Vol] 21 mmol/L Low 22-30 [facility] Comment on above: Order Comment: Speci men Type: BLOOD SPECIMEN Ordering Facility: [facility] Address: [address] [place] [address] Performed By: #### 5 7021-8 #### [facility] CLIA [id number] [address] [place] [address] [place] Creatinine [Mass/Vol] 1.09 mg/dL High 0.58-0.96 [facility] Comment on above: Order Comment: Speci men Type: BLOOD SPECIMEN Ordering Facility: [facility] Address: [address] [place] [address] Performed By: #### 5 7021-8 #### [facility] CLIA [id number] [address] [place] [address] [place] Creatinine and Glomerular filtration rate.predicted panel (S/P/Bld) 61 mL/min/1.73m??? Normal >=60 [facility] Comment on above: Order Comment: Speci men Type: BLOOD SPECIMEN Ordering Facility: [facility] Address: [address] [place] [address] Result Comment: Latasha mated Glomerular Filtration Rate (eGFR) is calculated using the 2020 CKD-EPI creatinine equation. This equation utilizes serum creatinine, sex, and age as parameters. The creatinine assay has traceable calibration to isotope dilution-mass spectrometry. Refer to KDIGO guidelines for clinical interpretation. In patients with unstable renal function, e.g. those with acute kidney injury, the eGFR may not accurately reflect actual GFR. Performed By: #### 5 7021-8 #### [facility] CLIA [id number] [address] [place] [address] [place] Glucose [Mass/Vol] 104 mg/dL High 74-99 [facility] Comment on above: Order Comment: Speci men Type: BLOOD SPECIMEN Ordering Facility: [facility] Address: [address] [place] [address] Result Comment: The [place] Diabetes [employer] (ADA) provides guidance for cutoff [...] Standards of Medical Care in Diabetes 2016, [place] [employer]. Diabetes Care. 2016.39(Suppl 1). Performed By: #### 5 7021-8 #### [facility] CLIA [id number] [address] [place] [address] [place] Potassium [Moles/Vol] 3.8 mmol/L Normal 3.7-5.1 [facility] Comment on above: Order Comment: Speci men Type: BLOOD SPECIMEN Ordering Facility: [facility] Address: [address] [place] [address] Performed By: #### 5 7021-8 #### [facility] CLIA [id number] [address] [place] [address] [place] Protein [Mass/Vol] 5.9 g/dL Low 6.3-8.0 [facility] Comment on above: Order Comment: Speci men Type: BLOOD SPECIMEN Ordering Facility: [facility] Address: [address] [place] [address] Performed By: #### 5 7021-8 #### [facility] CLIA [id number] [address] [place] [address] [place] Sodium [Moles/Vol] 143 mmol/L Normal 136-144 [facility] Comment on above: Order Comment: Speci men Type: BLOOD SPECIMEN Ordering Facility: [facility] Address: [address] [place] [address] Performed By: #### 5 7021-8 #### [facility] CLIA [id number] [address] [place] [address] [place] Urea nitrogen [Mass/Vol] 18 mg/dL Normal 7-21 [facility] Comment on above: Order Comment: Speci men Type: BLOOD SPECIMEN Ordering Facility: [facility] Address: [address] [place] [address] Performed By: #### 5 7021-8 #### [facility] CLIA [id number] [address] [place] [address] [place] Magnesium SerPl-mCncon 08-29 Magnesium [Mass/Vol] 2.0 mg/dL Normal 1.7-2.3 [facility] Comment on above: Order Comment: Speci men Type: BLOOD SPECIMEN Ordering Facility: [facility] Address: [address] [place] [address] Performed By: #### 5 7021-8 #### [facility] CLIA [id number] [address] [place] [address] [place] Phosphate SerPl-mCncon 08-29 Phosphate [Mass/Vol] 3.8 mg/dL Normal 2.7-4.8 [facility] Comment on above: Order Comment: Speci men Type: BLOOD SPECIMEN Ordering Facility: [facility] Address: [address] [place] [address] Performed By: #### 5 7021-8 #### [facility] CLIA [id number] [address] [place] [address] [place] ALLIED HEALTHon 08-28-2024 ALLIED HEALTH HNO ID: [id number] Author: MARY KAY UMANZOR Chaplain Service: Process Group Author Type: Type: Allied Health Filed: 08/28/2024 16:39 Note Text: The patient was anointed. Normal [facility] CBC W Auto Differential pane l (Bld)on 08-28-2024 Basophils (Bld) [#/Vol] 10*3/uL Normal <0.11 [facility] Comment on above: Order Comment: Speci men Type: BLOOD SPECIMEN Ordering Facility: [facility] Address: [address] [place] [address] Performed By: #### 5 7021-8 #### [facility] CLIA [id number] [address] [place] [address] [place] Basophils/100 WBC (Bld) 0.1 % Normal [facility] Comment on above: Order Comment: Speci men Type: BLOOD SPECIMEN Ordering Facility: [facility] Address: [address] [place] [address] Performed By: #### 5 7021-8 #### [facility] CLIA [id number] [address] [place] [address] [place] Differential cell count method Nom (Bld) Auto Normal [facility] Comment on above: Order Comment: Speci men Type: BLOOD SPECIMEN Ordering Facility: [facility] Address: [address] [place] [address] Performed By: #### 5 7021-8 #### [facility] CLIA [id number] [address] [place] [address] [place] Eosinophils (Bld) [#/Vol] 10*3/uL Normal <0.46 [facility] Comment on above: Order Comment: Speci men Type: BLOOD SPECIMEN Ordering Facility: [facility] Address: [address] [place] [address] Performed By: #### 5 7021-8 #### [facility] CLIA [id number] [address] [place] [address] [place] Eosinophils/100 WBC (Bld) 0.0 % Normal [facility] Comment on above: Order Comment: Speci men Type: BLOOD SPECIMEN Ordering Facility: [facility] Address: [address] [place] [address] Performed By: #### 5 7021-8 #### [facility] CLIA [id number] [address] [place] [address] [place] Erythrocyte distribution width (RBC) [Ratio] 18.7 % High 11.5-15.0 [facility] Comment on above: Order Comment: Speci men Type: BLOOD SPECIMEN Ordering Facility: [facility] Address: [address] [place] [address] Performed By: #### 5 7021-8 #### [facility] CLIA [id number] [address] [place] [address] [place] Hematocrit (Bld) [Volume fraction] 26.6 % Low 36.0-46.0 [facility] Comment on above: Order Comment: Speci men Type: BLOOD SPECIMEN Ordering Facility: [facility] Address: [address] [place] [address] Performed By: #### 5 7021-8 #### [facility] CLIA [id number] [address] [place] [address] [place] Hemoglobin (Bld) [Mass/Vol] 9.1 g/dL Low 11.5-15.5 [facility] Comment on above: Order Comment: Speci men Type: BLOOD SPECIMEN Ordering Facility: [facility] Address: [address] [place] [address] Performed By: #### 5 7021-8 #### [facility] CLIA [id number] [address] [place] [address] [place] Immature granulocytes (Bld) [#/Vol] 0.07 10*3/uL Normal <0.10 [facility] Comment on above: Order Comment: Speci men Type: BLOOD SPECIMEN Ordering Facility: [facility] Address: [address] [place] [address] Performed By: #### 5 7021-8 #### [facility] CLIA [id number] [address] [place] [address] [place] Immature granulocytes/100 WBC (Bld) 0.9 % Normal [facility] Comment on above: Order Comment: Speci men Type: BLOOD SPECIMEN Ordering Facility: [facility] Address: [address] [place] [address] Performed By: #### 5 7021-8 #### [facility] CLIA [id number] [address] [place] [address] [place] Lymphocytes (Bld) [#/Vol] 0.74 10*3/uL Low 1.00-4.00 [facility] Comment on above: Order Comment: Speci men Type: BLOOD SPECIMEN Ordering Facility: [facility] Address: [address] [place] [address] Performed By: #### 5 7021-8 #### [facility] CLIA [id number] [address] [place] [address] [place] Lymphocytes/100 WBC (Bld) 9.8 % Normal [facility] Comment on above: Order Comment: Speci men Type: BLOOD SPECIMEN Ordering Facility: [facility] Address: [address] [place] [address] Performed By: #### 5 7021-8 #### [facility] CLIA [id number] [address] [place] [address] [place] MCH (RBC) [Entitic mass] 32.4 pg Normal 26.0-34.0 [facility] Comment on above: Order Comment: Speci men Type: BLOOD SPECIMEN Ordering Facility: [facility] Address: [address] [place] [address] Performed By: #### 5 7021-8 #### [facility] CLIA [id number] [address] [place] [address] [place] MCHC (RBC) [Mass/Vol] 34.2 g/dL Normal 30.5-36.0 [facility] Comment on above: Order Comment: Speci men Type: BLOOD SPECIMEN Ordering Facility: [facility] Address: [address] [place] [address] Performed By: #### 5 7021-8 #### [facility] CLIA [id number] [address] [place] [address] [place] MCV (RBC) [Entitic vol] 94.7 fL Normal 80.0-100.0 [facility] Comment on above: Order Comment: Speci men Type: BLOOD SPECIMEN Ordering Facility: [facility] Address: [address] [place] [address] Performed By: #### 5 7021-8 #### [facility] CLIA [id number] [address] [place] [address] [place] Monocytes (Bld) [#/Vol] 0.42 10*3/uL Normal <0.87 [facility] Comment on above: Order Comment: Speci men Type: BLOOD SPECIMEN Ordering Facility: [facility] Address: [address] [place] [address] Performed By: #### 5 7021-8 #### [facility] CLIA [id number] [address] [place] [address] [place] Monocytes/100 WBC (Bld) 5.6 % Normal [facility] Comment on above: Order Comment: Speci men Type: BLOOD SPECIMEN Ordering Facility: [facility] Address: [address] [place] [address] Performed By: #### 5 7021-8 #### [facility] CLIA [id number] [address] [place] [address] [place] Neutrophils (Bld) [#/Vol] 6.31 10*3/uL Normal 1.45-7.50 [facility] Comment on above: Order Comment: Speci men Type: BLOOD SPECIMEN Ordering Facility: [facility] Address: [address] [place] [address] Performed By: #### 5 7021-8 #### [facility] CLIA [id number] [address] [place] [address] [place] Neutrophils/100 WBC (Bld) 83.6 % Normal [facility] Comment on above: Order Comment: Speci men Type: BLOOD SPECIMEN Ordering Facility: [facility] Address: [address] [place] [address] Performed By: #### 5 7021-8 #### [facility] CLIA [id number] [address] [place] [address] [place] Nucleated RBC (Bld) [#/Vol] 10*3/uL Normal <0.01 [facility] Comment on above: Order Comment: Speci men Type: BLOOD SPECIMEN Ordering Facility: [facility] Address: [address] [place] [address] Performed By: #### 5 7021-8 #### [facility] CLIA [id number] [address] [place] [address] [place] Nucleated RBC/100 WBC (Bld) [Ratio] 0.0 /100 WBC Normal [facility] Comment on above: Order Comment: Speci men Type: BLOOD SPECIMEN Ordering Facility: [facility] Address: [address] [place] [address] Performed By: #### 5 7021-8 #### [facility] CLIA [id number] [address] [place] [address] [place] Platelet mean volume (Bld) [Entitic vol] 9.3 fL Normal 9.0-12.7 [facility] Comment on above: Order Comment: Speci men Type: BLOOD SPECIMEN Ordering Facility: [facility] Address: [address] [place] [address] Performed By: #### 5 7021-8 #### [facility] CLIA [id number] [address] [place] [address] [place] Platelets (Bld) [#/Vol] 222 10*3/uL Normal 150-400 [facility] Comment on above: Order Comment: Speci men Type: BLOOD SPECIMEN Ordering Facility: [facility] Address: [address] [place] [address] Performed By: #### 5 7021-8 #### [facility] CLIA [id number] [address] [place] [address] [place] RBC (Bld) [#/Vol] 2.81 10*6/uL Low 3.90-5.20 [facility] Comment on above: Order Comment: Speci men Type: BLOOD SPECIMEN Ordering Facility: [facility] Address: [address] [place] [address] Performed By: #### 5 7021-8 #### [facility] CLIA [id number] [address] [place] [address] [place] WBC (Bld) [#/Vol] 7.55 10*3/uL Normal 3.70-11.00 [facility] Comment on above: Order Comment: Speci men Type: BLOOD SPECIMEN Ordering Facility: [facility] Address: [address] [place] [address] Performed By: #### 5 7021-8 #### [facility] CLIA [id number] [address] [place] [address] [place] Comprehensive metabolic 2000 panelon 08-28-2024 Albumin [Mass/Vol] 3.9 g/dL Normal 3.9-4.9 [facility] Comment on above: Order Comment: Speci men Type: BLOOD SPECIMEN Ordering Facility: [facility] Address: [address] [place] [address] Performed By: #### 2 4323-8, 70155-3, 2777-1 #### [facility] CLIA [id number] [address] [place] [address] [place] ALP [Catalytic activity/Vol] 90 U/L Normal 34-123 [facility] Comment on above: Order Comment: Speci men Type: BLOOD SPECIMEN Ordering Facility: [facility] Address: [address] [place] [address] Performed By: #### 2 4323-8, 65656-1, 2776-03 #### [facility] CLIA [id number] [address] [place] [address] [place] ALT [Catalytic activity/Vol] 71 U/L High 7-38 [facility] Comment on above: Order Comment: Speci men Type: BLOOD SPECIMEN Ordering Facility: [facility] Address: [address] [place] [address] Performed By: #### 2 4323-8, , 2776-03 #### [facility] CLIA [id number] [address] [place] [address] [place] Anion gap [Moles/Vol] 11 mmol/L Normal 8-15 [facility] Comment on above: Order Comment: Speci men Type: BLOOD SPECIMEN Ordering Facility: [facility] Address: [address] [place] [address] Performed By: #### 2 4323-8, , 2776-03 #### [facility] CLIA [id number] [address] [place] [address] [place] AST [Catalytic activity/Vol] 49 U/L High 13-35 [facility] Comment on above: Order Comment: Speci men Type: BLOOD SPECIMEN Ordering Facility: [facility] Address: [address] [place] [address] Performed By: #### 2 4323-8, 85273-1, 2776-03 #### [facility] CLIA [id number] [address] [place] [address] [place] Bilirubin [Mass/Vol] 0.5 mg/dL Normal 0.2-1.3 [facility] Comment on above: Order Comment: Speci men Type: BLOOD SPECIMEN Ordering Facility: [facility] Address: [address] [place] [address] Performed By: #### 2 4323-8, , 2776-03 #### [facility] CLIA [id number] [address] [place] [address] [place] Calcium [Mass/Vol] 9.5 mg/dL Normal 8.5-10.2 [facility] Comment on above: Order Comment: Speci men Type: BLOOD SPECIMEN Ordering Facility: [facility] Address: [address] [place] [address] Performed By: #### 2 4323-8, , 2776-03 #### [facility] CLIA [id number] [address] [place] [address] [place] Chloride [Moles/Vol] 106 mmol/L Normal 98-107 [facility] Comment on above: Order Comment: Speci men Type: BLOOD SPECIMEN Ordering Facility: [facility] Address: [address] [place] [address] Performed By: #### 2 4323-8, , 2776-03 #### [facility] CLIA [id number] [address] [place] [address] [place] CO2 [Moles/Vol] 22 mmol/L Normal 22-30 [facility] Comment on above: Order Comment: Speci men Type: BLOOD SPECIMEN Ordering Facility: [facility] Address: [address] [place] [address] Performed By: #### 2 4323-8, , 2776-03 #### [facility] CLIA [id number] [address] [place], [place] [address] [place] [place] Creatinine [Mass/Vol] 1.10 mg/dL High 0.58-0.96 [facility] Comment on above: Order Comment: Anitha alex Type: BLOOD SPECIMEN Ordering Facility: [facility] Address: [address] [place] [address] Performed By: #### 2 4323-8, 57344-2, 7-1 #### [facility] CLIA [id number] [address] [place] [address] [place] Creatinine and Glomerular filtration rate.predicted panel (S/P/Bld) 60 mL/min/1.73m??? Normal >=60 [facility] Comment on above: Order Comment: Anitha laex Type: BLOOD SPECIMEN Ordering Facility: [facility] Address: [address] [place] [address] Result Comment: Latasha mated Glomerular Filtration Rate (eGFR) is calculated using the 2020 CKD-EPI creatinine equation. This equation utilizes serum creatinine, sex, and age as parameters. The creatinine assay has traceable calibration to isotope dilution-mass spectrometry. Refer to KDIGO guidelines for clinical interpretation. In patients with unstable renal function, e.g. those with acute kidney injury, the eGFR may not accurately reflect actual GFR. Performed By: #### 2 4323-8, 23366-7, 1 #### [facility] CLIA [id number] [address] [place] [address] [place] Glucose [Mass/Vol] 144 mg/dL High 74-99 [facility] Comment on above: Order Comment: Anitha alex Type: BLOOD SPECIMEN Ordering Facility: [facility] Address: [address] [place] [address] Result Comment: The [place] Diabetes Association (ADA) provides guidance for cutoff [...] Standards of Medical Care in Diabetes 2016, [place] [employer] Association. Diabetes Care. 2016.39(Suppl 1). Performed By: #### 2 4323-8, , 2776-03 #### [facility] CLIA [id number] [address] [place], [place] [id number] [place] Potassium [Moles/Vol] 3.4 mmol/L Low 3.7-5.1 [facility] Comment on above: Order Comment: Speci men Type: BLOOD SPECIMEN Ordering Facility: [facility] Address: [address] [place], [place] [address] Performed By: #### 2 4323-8, , 2776-03 #### [facility] CLIA [id number] [address] [place] [address] [place] Protein [Mass/Vol] 6.0 g/dL Low 6.3-8.0 [facility] Comment on above: Order Comment: Speci men Type: BLOOD SPECIMEN Ordering Facility: [facility] Address: [address] [place], [place] [address] Performed By: #### 2 4323-8, , 2776-03 #### [facility] CLIA [id number] [address] [place] [address] [place] Sodium [Moles/Vol] 139 mmol/L Normal 136-144 [facility] Comment on above: Order Comment: Speci men Type: BLOOD SPECIMEN Ordering Facility: [facility] Address: [address] [place], [place] [address] Performed By: #### 2 4323-8, , 2776-03 #### [facility] CLIA [id number] [address] [place], [place] [address] [place] Urea nitrogen [Mass/Vol] 14 mg/dL Normal 7-21 [facility] Comment on above: Order Comment: Speci men Type: BLOOD SPECIMEN Ordering Facility: [facility] Address: [address] [place] [address] [place] [address] Performed By: #### 2 4323-8, 61382-5, 2777-1 #### [facility] CLIA [id number] [address] [place], [place] [address] [facility] [place] Magnesium SerPl-mCncon 08-28 Magnesium [Mass/Vol] 2.0 mg/dL Normal 1.7-2.3 [facility] Comment on above: Order Comment: Speci men Type: BLOOD SPECIMEN Ordering Facility: [facility] Address: [address] [place] [address] [place] [id number] Performed By: #### 2 4323-8, 38348-1, 2777-1 #### [facility] CLIA [id number] [address] [place], [place] [address] [place] NUTRITIONon 08-28-2024 NUTRITION HNO ID: [id number] Author: GERALDINE BENITO RD Service: Nutrition Therapy Author Type: Registered Dietitian Type: Nutrition Filed: 08/28/2024 16:21 Note Text: NUTRITION THERAPY INITIAL ASSESSMENT SERVICE DATE: 08/28/2024 SERVICE TIME: Start Time: 1052 Nutrition Assessment: Recommended Malnutrition Diagnosis: No Malnutrition Identified In the context of: Chronic Illness or Injury Care Plan: Continue current diet (regular diet - adjust per primary) Supplements: Impact AR (requested Impact AR supplementation. Will provide once a day for wound healing to breast) Refer to: [employer] to Follow Vitamins and Minerals: Multivitamin with minerals (recommend to start) Medications: (continue bowel regimen PRN) Labs: Phosphorus, Potassium, Magnesium (monitor and replete lytes PRN) Monitor and Evaluation: Meet greater than 75% of estimated needs, Monitor fluid/electrolyte balance, Monitor labs, I/Os, vital signs, weight, Monitor bowel function Discharge Recommendations: Diet, Oral Supplements Diet: continue to eat 2-3 well balanced meals daily as tolerable Oral Supplements: ONS of choice as needed for additional nutirition support in healing altered skin integrity s/p surgery HPI: I have confirmed and edited as necessary the HPI obtained by Genna Sahu DO on 08/26/24 and all reflect current status. 53 year old woman with a history of right breast cancer s/p 16 cycles of R chest wall radiation (last 01/2024), s/p chemotherapy with pembolizumab, paclitaxel+carboplatin , doxorubicin+cyclophosp hamide, most recently started daily Xeloda 1500mg BID, as well as hypertension, presenting with focal neurologic deficits and new finding of brain metastases at [facility]. Transferred to [facility] for brain MRI and is seeking options for more streamlined care. Interval History: - Pt states at baseline typically eating 2-3 high protein and reduced sugar containing meals daily. - Endorses multiple recent hospitalizations in which appetite declined leading to weight loss. States her appetite has significantly improved and has noticed weight gain towards usual body weight range since last hospitalization suspected to be around 08/12 per chart review. - Endorses alternating constipation/loose stool, dry and sore lips and throat however, denies any N/V, abdominal pain, chewing/swallowing issues, taste changes, dry mouth, or mouth sores leading up to this admission. - Since admission, pt has been intermittently NPO for medical workup purposes. Otherwise has been receiving regular diet. Per intake documentation, pt has had 100% x 1 meal thus far. Encouraged pt to continue eating at least 2-3 meals daily as tolerable. - Pt requesting ONS support d/t breast wound noted via LDA avatar. Plan to send Impact AR once daily w/ lunch for support in healing. - RD to sign off. DTR to follow. Consult RD should acute nutrition related concerns arise prior to d/c. Intake History: Nutrition Intake Prior to Admission: Greater than 75% estimated energy needs greater than or equal to 1 month (denies any decline in meal intakes leading up to admission) Dosing Weight: 88 kg (194 lb) Dosing Weight Type: Current weight Estimated kilocalorie needs: 5312-3537 Calorie Calculation Method: 20-25 kcals/kg Estimated protein needs (grams): 80-100 Grams protein determined by: 1.2 - 1.5 g/kg (IBW 68kg) Diet Orders (From admission, onward) Start Ordered 08/30/24 0001 DIET NPO AFTER MIDNIGHT Question Answer Comment NPO Restrictions FOR PROCEDURE NPO Restrictions EXCEPT MEDS 08/26/24 1707 08/28/24 1115 SUPPLEMENT/SNACK PROVIDED START NOW Question Answer Comment Supplement 1 (19 years and up) IMPACT [employer] CATHRYN Supplement 1 Frequency LUNCH 08/28/24 1108 08/27/24 0845 DIET REGULAR START NOW 08/27/24 0837 Anthropometrics: Height: 177.8 cm (5' 10 ) Weight: 88 kg (194 lb 0.1 oz) Usual Weight: 90.7 kg (200 lb) 03/10/24 Usual Weight Obtained From: Care Everywhere Body mass index is 27.84 kg/m?. Weight change percentage over time: 3% wt loss x 5 months Weight Change: Not clinically significant weight loss Physical Exam: Subcutaneous fat loss: No Subcutaneous Fat Loss Muscle loss: No Muscle Loss Potential micronutrient deficiency: No deficiency identified Edema/Ascites: No edema, No ascites (per NPR) GI Symptoms: None Stool Amount: Unchanged (no BM recorded yet) Functional Status: Not related to malnutrition status Potential Signs of Inflammation: Chronic condition R breast cancer w/ newly discovered brain mets, HTN MNT Billing: $ Initial Assessment: 1 unit Time Spent (mins): 14 SIGNATURE: Geraldine Benito RD PATIENT NAME: Ike Flannery DATE: August 28, 2024 TIME: 4:10 PM Normal [facility] Phosphate SerPl-mCncon 08-28 Phosphate [Mass/Vol] 2.4 mg/dL Low 2.7-4.8 [facility] Comment on above: Order Comment: Speci men Type: BLOOD SPECIMENOrdering Facility: [facility] Address: [address] [place] [address] Performed By: #### 2 4323-8, 61867-3, 2777-1 ####[facility] [id number] [place] [address] [place] ALLIED HEALTHon 08-27-2024 ALLIED HEALTH HNO ID: [id number] Author: EMILIANA ALVAREZ, Student Service: Spiritual Care Author Type: Student Type: Allied Health Filed: 08/27/2024 12:09 Note Text: SPIRITUAL CARE ASSESSMENT SERVICE DATE: 08/27/2024 SERVICE TIME: 11:10 Visit with: Patient Length of visit (minutes): 30 Yazidi / Spirituality: Mandaeism Reason: Initial visit ASSESSMENT Emotional Disposition: Afraid, Grateful, Grief, and Hopeful Relational Concerns: None Spiritual Concerns: Struggling with meaning of illness or diagnosis and Struggling with why bad things happen (Theodicy) INTERVENTIONS Empowerment: Facilitated grief process and Informed patient of spiritual care resources available Exploration: Explored emotional needs and resources, Explored relational needs and resources, Explored spiritual needs and resources, and Facilitated story telling Relationship Building: Provided hospitality Ritual: Provided prayer OUTCOMES Patient tearfully processed emotions, Patient experienced catharsis, Patient expressed gratitude, Patient expressed grief, Patient's distress reduced, Identified meaningful connections, and Spiritual resources utilized PLAN Will follow as circumstances allow COMMENTS: Tia is struggling with the weight of her diagnosis and the need to be strong. She has been dealing with multiple forms of grief and loss over the last few years as she navigates her health crisis. She has strong family and community support and relies of her danish to sustain her. She was relieved to share the extent of the challenges she is has been facing. I offered prayer at her request which was cathartic for her. She would like to receive communion and I put in a request. SIGNATURE: Emiliana Alvarez, Student PATIENT NAME: Ike Flannery DATE: August 27, 2024 TIME: 12:01 PM PAGER/CONTACT #: [phone] Normal [facility] CBC W Auto Differential pane l (Bld)on 08-27-2024 Basophils (Bld) [#/Vol] 0.05 10*3/uL Normal <0.11 [facility] Comment on above: Order Comment: Speci men Type: BLOOD SPECIMEN Ordering Facility: [facility] Address: [address] [place] [address] Performed By: #### 2 777-1, , #### [facility] CLIA [id number] [address] [place] [address] [place] [address] [place] Basophils/100 WBC (Bld) 1.3 % Normal [facility] Comment on above: Order Comment: Speci men Type: BLOOD SPECIMEN Ordering Facility: [facility] Address: [address] [place] [address] Performed By: #### 2 777-1, , #### [facility] CLIA [id number] [address] [place] [address] [place] Differential cell count method Nom (Bld) Auto Normal [facility] Comment on above: Order Comment: Speci men Type: BLOOD SPECIMEN Ordering Facility: [facility] Address: [address] [place] [address] Performed By: #### 2 777-1, , #### [facility] CLIA [id number] [address] [place] [address] [place] Eosinophils (Bld) [#/Vol] 0.27 10*3/uL Normal <0.46 [facility] Comment on above: Order Comment: Speci men Type: BLOOD SPECIMEN Ordering Facility: [facility] Address: [address] [place] [address] Performed By: #### 2 777-1, , #### [facility] CLIA [id number] [address] [place] [address] [place] Eosinophils/100 WBC (Bld) 6.9 % Normal [facility] Comment on above: Order Comment: Speci men Type: BLOOD SPECIMEN Ordering Facility: [facility] Address: [address] [place] [address] Performed By: #### 2 777-1, , #### [facility] CLIA [id number] [address] [place] [address] [place] Erythrocyte distribution width (RBC) [Ratio] 18.7 % High 11.5-15.0 [facility] Comment on above: Order Comment: Speci men Type: BLOOD SPECIMEN Ordering Facility: [facility] Address: [address] [place] [address] Performed By: #### 2 777-1, , #### [facility] CLIA [id number] [address] [place] [address] [place] Hematocrit (Bld) [Volume fraction] 27.3 % Low 36.0-46.0 [facility] Comment on above: Order Comment: Speci men Type: BLOOD SPECIMEN Ordering Facility: [facility] Address: [address] [place] [address] Performed By: #### 2 777-1, 48718-9, #### [facility] CLIA [id number] [address] [place] [address] [place] Hemoglobin (Bld) [Mass/Vol] 9.4 g/dL Low 11.5-15.5 [facility] Comment on above: Order Comment: Speci men Type: BLOOD SPECIMEN Ordering Facility: [facility] Address: [address] [place] [address] Performed By: #### 2 777-1, , #### [facility] CLIA [id number] [address] [place] [address] [place] Immature granulocytes (Bld) [#/Vol] 0.03 10*3/uL Normal <0.10 [facility] Comment on above: Order Comment: Speci men Type: BLOOD SPECIMEN Ordering Facility: [facility] Address: [address] [place] [address] Performed By: #### 2 777-1, , #### [facility] CLIA [id number] [address] [place] [address] [place] Immature granulocytes/100 WBC (Bld) 0.8 % Normal [facility] Comment on above: Order Comment: Speci men Type: BLOOD SPECIMEN Ordering Facility: [facility] Address: [address] [place] [address] Performed By: #### 2 777-1, 24540-1, #### [facility] CLIA [id number] [address] [place], [place] [address] [place] Lymphocytes (Bld) [#/Vol] 1.06 10*3/uL Normal 1.00-4.00 [facility] Comment on above: Order Comment: Speci men Type: BLOOD SPECIMEN Ordering Facility: [facility] Address: [address] [place] [address] Performed By: #### 2 777-1, 65687-1, #### [facility] CLIA [id number] [address] [place] [address] [place] Lymphocytes/100 WBC (Bld) 26.9 % Normal [facility] Comment on above: Order Comment: Speci men Type: BLOOD SPECIMEN Ordering Facility: [facility] Address: [address] [place] [address] Performed By: #### 2 777-1, , #### [facility] CLIA [id number] [address] [place] [address] [place] MCH (RBC) [Entitic mass] 32.6 pg Normal 26.0-34.0 [facility] Comment on above: Order Comment: Speci men Type: BLOOD SPECIMEN Ordering Facility: [facility] Address: [address] [place] [address] Performed By: #### 2 777-1, 63520-9, #### [facility] CLIA [id number] [address] [place] [address] [place] MCHC (RBC) [Mass/Vol] 34.4 g/dL Normal 30.5-36.0 [facility] Comment on above: Order Comment: Speci men Type: BLOOD SPECIMEN Ordering Facility: [facility] Address: [address] [place] [address] Performed By: #### 2 777-1, 18744-8, #### [facility] CLIA [id number] [address] [id number] [address] [place] MCV (RBC) [Entitic vol] 94.8 fL Normal 80.0-100.0 [facility] Comment on above: Order Comment: Speci men Type: BLOOD SPECIMEN Ordering Facility: [facility] Address: [address] [place] [address] Performed By: #### 2 777-1, 00563-2, #### [facility] CLIA [id number] [address] [place] [address] [place] Monocytes (Bld) [#/Vol] 0.42 10*3/uL Normal <0.87 [facility] Comment on above: Order Comment: Speci men Type: BLOOD SPECIMEN Ordering Facility: [facility] Address: [address] [place] [address] Performed By: #### 2 777-1, 95721-9, #### [facility] CLIA [id number] [address] [place] [address] [place] Monocytes/100 WBC (Bld) 10.7 % Normal [facility] Comment on above: Order Comment: Speci men Type: BLOOD SPECIMEN Ordering Facility: [facility] Address: [address] [place] [address] Performed By: #### 2 777-1, 28254-9, #### [facility] CLIA [id number] [address] [place] [address] [place] Neutrophils (Bld) [#/Vol] 2.11 10*3/uL Normal 1.45-7.50 [facility] Comment on above: Order Comment: Speci men Type: BLOOD SPECIMEN Ordering Facility: [facility] Address: [address] [place] [address] Performed By: #### 2 777-1, 45921-2, #### [facility] CLIA [id number] [address] [place] [address] [place] Neutrophils/100 WBC (Bld) 53.4 % Normal [facility] Comment on above: Order Comment: Speci men Type: BLOOD SPECIMEN Ordering Facility: [facility] Address: [address] [place] [address] Performed By: #### 2 777-1, , #### [facility] CLIA [id number] [address] [place] [address] [place] Nucleated RBC (Bld) [#/Vol] 10*3/uL Normal <0.01 [facility] Comment on above: Order Comment: Speci men Type: BLOOD SPECIMEN Ordering Facility: [facility] Address: [address] [place] [address] Performed By: #### 2 777-1, , #### [facility] CLIA [id number] [address] [place] [address] [place] Nucleated RBC/100 WBC (Bld) [Ratio] 0.0 /100 WBC Normal [facility] Comment on above: Order Comment: Speci men Type: BLOOD SPECIMEN Ordering Facility: [facility] Address: [address] [place] [address] Performed By: #### 2 777-1, , #### [facility] CLIA [id number] [address] [place] [address] [place] Platelet mean volume (Bld) [Entitic vol] 9.0 fL Normal 9.0-12.7 [facility] Comment on above: Order Comment: Speci men Type: BLOOD SPECIMEN Ordering Facility: [facility] Address: [address] [place] [address] Performed By: #### 2 777-1, , #### [facility] CLIA [id number] [address] [place] [address] [place] Platelets (Bld) [#/Vol] 224 10*3/uL Normal 150-400 [facility] Comment on above: Order Comment: Speci men Type: BLOOD SPECIMEN Ordering Facility: [facility] Address: [address] [place] [address] Performed By: #### 2 777-1, 63991-3, 09122-6 #### [facility] CLIA [id number] [address] [place] [address] [place] RBC (Bld) [#/Vol] 2.88 10*6/uL Low 3.90-5.20 [facility] Comment on above: Order Comment: Speci men Type: BLOOD SPECIMEN Ordering Facility: [facility] Address: [address] [place] [address] Performed By: #### 2 777-1, 40368-5, 38298-3 #### [facility] CLIA [id number] [address] [place] [address] [place] WBC (Bld) [#/Vol] 3.94 10*3/uL Normal 3.70-11.00 [facility] Comment on above: Order Comment: Speci men Type: BLOOD SPECIMEN Ordering Facility: [facility] Address: [address] [place] [address] Performed By: #### 2 777-1, 08517-8, 80560-7 #### [facility] CLIA [id number] [address] [place] [address] [place] CONSULTon 08-27-2024 CONSULT HNO ID: [id number] Author: MARISELA CISNEROS MD Service: Radiation Oncology Author Type: Physician Type: Consults Filed: 08/27/2024 13:14 Note Text: [facility]IAL CON[facility]ULT [facility]AL Please contact Dr. Marisela Cisneros (staff) M-F 8a-4p for questions regarding RT during this patient's admission; otherwise contact the on-call resident (Pager [phone]) after hours. SERVICE DATE: 08/27/2024 SERVICE TIME: 1100 CONSULTING SERVICE: Medical Oncology CONSULTATION requested by Dr. Sahu for an opinion regarding the role of radiation therapy in the management of the patient's disease. My final recommendations will be communicated back to the requesting physician by way of shared Medical record or letter to requesting physician via [place] mail. DIAGNOSIS: 53 year old year old woman with breast cancer metastatic to liver and brain. Localized disease at diagnosis s/p bilateral mastectomy and right ALND, [id number] disease and subsequent adjuvant RT completed ~Jan 2024. Subjective CHIEF COMPLAINT: slurred speech, right arm weakness. HPI: Ms. Flannery is a 53 year old woman with history of right breast cancer (ER-weakly positive, MD-negative, HER2 nonamplified) diagnosed and managed at [facility]. She underwent neoadjuvant chemoimmunotherapy followed by bilateral mastectomy with right axillary dissection and tissue putty mixer reconstruction 10/2023, noted to have ypT1c N2 disease. Subsequently received adjuvant right chest wall RT and anastrozole around 01/2024 (records not available on my review). Course has been complicated by multiple wound infections requiring debridement. PET/CT 06/12/24 showed a 2.5 cm mass in the posterior liver which was biopsied 07/11/24 showing oligometastatic disease. She has transitioned care to [facility] to unify her care; otherwise seen at multiple outside hospitals for oncology, ID, and plastic surgery management. Current therapy is Xeloda 1500 mg BID started 07/2024. 1-2 weeks prior to admission, others pointed out to her that her speech was becoming slurred. She also noticed right hand weakness. A CT brain was obtained 08/26/24 showing a cerebellar vermis lesion. MRI brain is pending; primary team believes her tissue putty mixer will be removed 08/30. She is tearful discussing her disease today. Primary team has started dexamethasone. ALLERGIES Allergen Reactions Meperidine Other: See Comments, Rash, Swelling Other Reaction(s): Other, Unknown Vancomycin Other: See Comments Other Reaction(s): Other Intolerance: experienced acute kidney injury during a hospitalization, suspected due to vancomycin. Acute Kidney Injury Tetracycline Rash Adhesive Rash Ceftaroline Fosamil Other: See Comments Daptomycin Other: See Comments Other Reaction(s): Flushing Doxycycline Rash amikacin (AMIKIN) 500 mg/2 mL solnDisp: Rfl: ELIQUIS 5 mg tab(s)Take 5 mg by mouth.Disp: Rfl: carvedilol (COREG) 12.5 mg tabletTake 12.5 mg by mouth.Disp: Rfl: cyanocobalamin (VITAMIN B-12) 1,000 mcg tabTake 1,000 mcg by mouth.Disp: Rfl: FEROSUL 325 mg (65 mg iron) tabletTake 1 tablet by mouth two times a day with meals.Disp: Rfl: folic acid 1 mg tabletTake 1 mg by mouth.Disp: Rfl: gabapentin (NEURONTIN) 300 mg capsuleTake 300 mg by mouth two times a day.Disp: Rfl: imipenem/cilastatin sodium (IMIPENEM-CILASTATIN INTRAVENOUS)Inject 1,000 mg intravenously two times a day.Disp: Rfl: magnesium oxide 400 mg magnesium tabTake 400 mg by mouth.Disp: Rfl: omadacycline (NUZYRA) 150 mg tabletTake 300 mg by mouth.Disp: Rfl: pyridoxine, vitamin B6, (VITAMIN B6) 50 mg tabletTake 50 mg by mouth.Disp: Rfl: spironolactone (ALDACTONE) 25 mg tabletTake 12.5 mg by mouth once daily.Disp: Rfl: CLOFAZIMINE, BULK, MISCTake 100 mg by mouth.Disp: Rfl: 0.9 % sodium chloride (NACL 0.9%) infusionDisp: Rfl: cyclobenzaprine (FLEXERIL) 10 mg tabletTake 1 tablet by mouth every evening.Disp: Rfl: diazePAM (VALIUM) 5 mg tabletTake 1 tablet (5 mg total) by mouth every 12 (twelve) hours as needed for anxiety or muscle spasms (Give 30min prior to dressing change) for up to 10 days for anxietyDisp: Rfl: hydrOXYzine HCl (ATARAX) 25 mg tabletTake 25 mg by mouth.Disp: Rfl: oxyCODONE IR (ROXICODONE) 10 mg tabTake 1 tablet by mouth every 6 hours as needed.Disp: Rfl: oxyCODONE IR (ROXICODONE) 5 mg immediate release tabletTake 1 tablet (5 mg total) by mouth every 4 hours as needed for pain for up to 7 days. Max Daily Amount 30 mgDisp: Rfl: potassium chloride (K-TAB) 10 mEq tabletTAKE TWO TABLETS BY MOUTH TWICE A DAYDisp: Rfl: prochlorperazine (COMPAZINE) 10 mg tabletDisp: Rfl: Current Facility-Administered Medications Medication Dose Route Frequency NaCl 0.9% iv flush bag 20 mL INTRAVENOUS PRN carvedilol 12.5 mg tab(s) (COREG) 12.5 mg ORAL BID w MEALS gabapentin 300 mg cap(s) (NEURONTIN) 300 mg ORAL BID hydrOXYzine HCl 25 mg tab(s) (ATARAX) 25 mg ORAL q 4 H PRN spironolactone 12.5 mg tab(s) (ALDACTONE) 12.5 mg ORAL DAILY imipenem-cilas (more content not included)... Normal [facility] Comprehensive metabolic 2000 panelon 08-27-2024 Albumin [Mass/Vol] 3.9 g/dL Normal 3.9-4.9 [facility] Comment on above: Order Comment: Speci men Type: BLOOD SPECIMEN Ordering Facility: [facility] Address: [address] [place] [address] Performed By: #### 2 777-1, , #### [facility] CLIA [id number] [address] [place] [address] [place] ALP [Catalytic activity/Vol] 101 U/L Normal 34-123 [facility] Comment on above: Order Comment: Speci men Type: BLOOD SPECIMEN Ordering Facility: [facility] Address: [address] [place] [address] Performed By: #### 2 777-1, , #### [facility] CLIA [id number] [address] [place] [address] [place] ALT [Catalytic activity/Vol] 91 U/L High 7-38 [facility] Comment on above: Order Comment: Speci men Type: BLOOD SPECIMEN Ordering Facility: [facility] Address: [address] [place] [address] Performed By: #### 2 777-1, , #### [facility] CLIA [id number] [address] [place] [address] [place] Anion gap [Moles/Vol] 10 mmol/L Normal 8-15 [facility] Comment on above: Order Comment: Speci men Type: BLOOD SPECIMEN Ordering Facility: [facility] Address: [address] [place], [place] [address] Performed By: #### 2 777-1, 74199-7, #### [facility] CLIA [id number] [address] [place], [place] [address] [place] AST [Catalytic activity/Vol] 74 U/L High 13-35 [facility] Comment on above: Order Comment: Speci men Type: BLOOD SPECIMEN Ordering Facility: [facility] Address: [address] [place], [place] [address] Performed By: #### 2 777-1, 09173-5, #### [facility] CLIA [id number] [address] [place] [address] [place] Bilirubin [Mass/Vol] 0.5 mg/dL Normal 0.2-1.3 [facility] Comment on above: Order Comment: Speci men Type: BLOOD SPECIMEN Ordering Facility: [facility] Address: [address] [place] [address] Performed By: #### 2 777-1, 89732-2, #### [facility] CLIA [id number] [address] [place] [address] [place] Calcium [Mass/Vol] 9.5 mg/dL Normal 8.5-10.2 [facility] Comment on above: Order Comment: Speci men Type: BLOOD SPECIMEN Ordering Facility: [facility] Address: [address] [place], [place] [address] Performed By: #### 2 777-1, 85563-1, #### [facility] CLIA [id number] [address] [place], [place] [address] [place] Chloride [Moles/Vol] 106 mmol/L Normal 98-107 [facility] Comment on above: Order Comment: Speci men Type: BLOOD SPECIMEN Ordering Facility: [facility] Address: [address] [place], [place] [address] Performed By: #### 2 777-1, 39171-2, #### [facility] CLIA [id number] [address] [place] [address] [place] CO2 [Moles/Vol] 24 mmol/L Normal 22-30 [facility] Comment on above: Order Comment: Speci men Type: BLOOD SPECIMEN Ordering Facility: [facility] Address: [address] [place] [address] Performed By: #### 2 777-1, 23280-8, #### [facility] CLIA [id number] [address] [place] [address] [place] Creatinine [Mass/Vol] 1.15 mg/dL High 0.58-0.96 [facility] Comment on above: Order Comment: Speci men Type: BLOOD SPECIMEN Ordering Facility: [facility] Address: [address] [place] [address] Performed By: #### 2 777-1, 86190-7, #### [facility] CLIA [id number] [address] [place] [address] [place] Creatinine and Glomerular filtration rate.predicted panel (S/P/Bld) 57 mL/min/1.73m??? Low >=60 [facility] Comment on above: Order Comment: Speci men Type: BLOOD SPECIMEN Ordering Facility: [facility] Address: [address] [place] [address] Result Comment: Latasha mated Glomerular Filtration Rate (eGFR) is calculated using the 2020 CKD-EPI creatinine equation. This equation utilizes serum creatinine, sex, and age as parameters. The creatinine assay has traceable calibration to isotope dilution-mass spectrometry. Refer to KDIGO guidelines for clinical interpretation. In patients with unstable renal function, e.g. those with acute kidney injury, the eGFR may not accurately reflect actual GFR. Performed By: #### 2 777-1, 93514-4, 72469-7 #### [facility] CLIA [id number] [address] [place] [address] [place] Glucose [Mass/Vol] 96 mg/dL Normal 74-99 [facility] Comment on above: Order Comment: Speci men Type: BLOOD SPECIMEN Ordering Facility: [facility] Address: [address] [place] [address] Result Comment: The [place] Diabetes [employer] (ADA) provides guidance for cutoff [...] Standards of Medical Care in Diabetes 2016, [place] [employer]. Diabetes Care. 2016.39(Suppl 1). Performed By: #### 2 777-1, 63821-3, #### [facility] CLIA [id number] [address] [place] [address] [place] Potassium [Moles/Vol] 3.5 mmol/L Low 3.7-5.1 [facility] Comment on above: Order Comment: Speci men Type: BLOOD SPECIMEN Ordering Facility: [facility] Address: [address] [place] [address] Performed By: #### 2 777-1, 63625-9, #### [facility] CLIA [id number] [address] [place] [address] [place] Protein [Mass/Vol] 5.8 g/dL Low 6.3-8.0 [facility] Comment on above: Order Comment: Phyliciai men Type: BLOOD SPECIMEN Ordering Facility: [facility] Address: [address] [place] [address] Performed By: #### 2 777-1, , #### [facility] CLIA [id number] [address] [place] [address] [place] Sodium [Moles/Vol] 140 mmol/L Normal 136-144 [facility] Comment on above: Order Comment: Speci men Type: BLOOD SPECIMEN Ordering Facility: [facility] Address: [address] [place], [place] [address] Performed By: #### 2 777-1, 58389-8, #### [facility] CLIA [id number] [address] [place] [address] [place] Urea nitrogen [Mass/Vol] 13 mg/dL Normal 7-21 [facility] Comment on above: Order Comment: Speci men Type: BLOOD SPECIMEN Ordering Facility: [facility] Address: [address] [place] [address] Performed By: #### 2 777-1, 44913-4, #### [facility] CLIA [id number] [address] [place], [place] [address] [place] Magnesium SerPl-mCncon 08-27 Magnesium [Mass/Vol] 2.0 mg/dL Normal 1.7-2.3 [facility] Comment on above: Order Comment: Speci men Type: BLOOD SPECIMEN Ordering Facility: [facility] Address: [address] [place], [place] [address] Performed By: #### 2 777-1, 54647-7, #### [facility] CLIA [id number] [address] [place] [address] [place] Phosphate SerPl-mCncon 08-27 Phosphate [Mass/Vol] 3.1 mg/dL Normal 2.7-4.8 [facility] Comment on above: Order Comment: Speci men Type: BLOOD SPECIMEN Ordering Facility: [facility] Address: [address] [place], [place] [address] Performed By: #### 2 777-1, 85345-1, 45397-8 #### [facility] CLIA [id number] [address] [place] [address] [place] [address] [place] XR CHEST 1V FRONTAL PORTon 0 08-27-2024 XR CHEST 1V FRONTAL PORT * * *Final Report* * * DATE [...] limits for portable projection. Other: Soft tissue putty mixer is identified in the RIGHT breast with adjacent surgical clips. There is scoliosis of the thoracolumbar spine. 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 Transcribe Date/Time: Aug 27 2024 9:51A Dictated by : HAN HARRINGOTN MD This examination was interpreted and the report reviewed and electronically signed by: HAN HARRINGTON MD on Aug 27 2024 9:51AM EST [id number] Normal [facility]-2024 Amikacin trough [Mass/Vol] <0.8 Low 5.0-8.0 [facility] Comment on above: Order Comment: Speci men Type: BLOOD SPECIMEN Ordering Facility: [facility] Address: [address] [place] [address] Result Comment: Refe rence ranges and high/low indicator flags are provided as general guidelines only. The treating physician must determine appropriate target levels/dosing based on the specific clinical situation. Result rechecked. Performed By: #### 2 777-1, 81391-6, 53597-9 #### [facility] CLIA [id number] [address] [place] [address] [place] CBC W Auto Differential pane l (Bld)on 08-26-2024 Basophils (Bld) [#/Vol] 0.06 10*3/uL Normal <0.11 [facility] Comment on above: Order Comment: Speci men Type: BLOOD SPECIMEN Ordering Facility: [facility] Address: [address] [place] [address] Performed By: #### 5 7021-8 #### [facility] CLIA [id number] [address] [place] [address] [place] Basophils/100 WBC (Bld) 1.4 % Normal [facility] Comment on above: Order Comment: Speci men Type: BLOOD SPECIMEN Ordering Facility: [facility] Address: [address] [place] [address] Performed By: #### 5 7021-8 #### [facility] CLIA [id number] [address] [place] [address] [place] Differential cell count method Nom (Bld) Auto Normal [facility] Comment on above: Order Comment: Speci men Type: BLOOD SPECIMEN Ordering Facility: [facility] Address: [address] [place] [address] Performed By: #### 5 7021-8 #### [facility] CLIA [id number] [address] [place] [address] [place] Eosinophils (Bld) [#/Vol] 0.32 10*3/uL Normal <0.46 [facility] Comment on above: Order Comment: Speci men Type: BLOOD SPECIMEN Ordering Facility: [facility] Address: [address] [place] [address] Performed By: #### 5 7021-8 #### [facility] CLIA [id number] [address] [place] [address] [place] Eosinophils/100 WBC (Bld) 7.5 % Normal [facility] Comment on above: Order Comment: Speci men Type: BLOOD SPECIMEN Ordering Facility: [facility] Address: [address] [place] [address] Performed By: #### 5 7021-8 #### [facility] CLIA [id number] [address] [place] [address] [place] Erythrocyte distribution width (RBC) [Ratio] 18.7 % High 11.5-15.0 [facility] Comment on above: Order Comment: Speci men Type: BLOOD SPECIMEN Ordering Facility: [facility] Address: [address] [place] [address] Performed By: #### 5 7021-8 #### [facility] CLIA [id number] [address] [place] [address] [place] Hematocrit (Bld) [Volume fraction] 29.0 % Low 36.0-46.0 [facility] Comment on above: Order Comment: Speci men Type: BLOOD SPECIMEN Ordering Facility: [facility] Address: [address] [place] [address] Performed By: #### 5 7021-8 #### [facility] CLIA [id number] [address] [place] [address] [place] Hemoglobin (Bld) [Mass/Vol] 10.0 g/dL Low 11.5-15.5 [facility] Comment on above: Order Comment: Speci men Type: BLOOD SPECIMEN Ordering Facility: [facility] Address: [address] [place] [address] Performed By: #### 5 7021-8 #### [facility] CLIA [id number] [address] [place] [address] [place] Immature granulocytes (Bld) [#/Vol] 0.03 10*3/uL Normal <0.10 [facility] Comment on above: Order Comment: Speci men Type: BLOOD SPECIMEN Ordering Facility: [facility] Address: [address] [place] [address] Performed By: #### 5 7021-8 #### [facility] CLIA [id number] [address] [place] [address] [place] Immature granulocytes/100 WBC (Bld) 0.7 % Normal [facility] Comment on above: Order Comment: Speci men Type: BLOOD SPECIMEN Ordering Facility: [facility] Address: [address] [place] [address] Performed By: #### 5 7021-8 #### [facility] CLIA [id number] [address] [place] [address] [place] Lymphocytes (Bld) [#/Vol] 0.89 10*3/uL Low 1.00-4.00 [facility] Comment on above: Order Comment: Speci men Type: BLOOD SPECIMEN Ordering Facility: [facility] Address: [address] [place] [address] Performed By: #### 5 7021-8 #### [facility] CLIA [id number] [address] [place] [address] [place] Lymphocytes/100 WBC (Bld) 20.8 % Normal [facility] Comment on above: Order Comment: Speci men Type: BLOOD SPECIMEN Ordering Facility: [facility] Address: [address] [place] [address] Performed By: #### 5 7021-8 #### [facility] CLIA [id number] [address] [place] [address] [place] MCH (RBC) [Entitic mass] 32.7 pg Normal 26.0-34.0 [facility] Comment on above: Order Comment: Speci men Type: BLOOD SPECIMEN Ordering Facility: [facility] Address: [address] [place] [address] Performed By: #### 5 7021-8 #### [facility] CLIA [id number] [address] [place] [address] [place] MCHC (RBC) [Mass/Vol] 34.5 g/dL Normal 30.5-36.0 [facility] Comment on above: Order Comment: Speci men Type: BLOOD SPECIMEN Ordering Facility: [facility] Address: [address] [place] [address] Performed By: #### 5 7021-8 #### [facility] CLIA [id number] [address] [place] [address] [place] MCV (RBC) [Entitic vol] 94.8 fL Normal 80.0-100.0 [facility] Comment on above: Order Comment: Speci men Type: BLOOD SPECIMEN Ordering Facility: [facility] Address: [address] [place] [address] Performed By: #### 5 7021-8 #### [facility] CLIA [id number] [address] [place] [address] [place] Monocytes (Bld) [#/Vol] 0.49 10*3/uL Normal <0.87 [facility] Comment on above: Order Comment: Speci men Type: BLOOD SPECIMEN Ordering Facility: [facility] Address: [address] [place] [address] Performed By: #### 5 7021-8 #### [facility] CLIA [id number] [address] [place] [address] [place] Monocytes/100 WBC (Bld) 11.4 % Normal [facility] Comment on above: Order Comment: Speci men Type: BLOOD SPECIMEN Ordering Facility: [facility] Address: [address] [place] [address] Performed By: #### 5 7021-8 #### [facility] CLIA [id number] [address] [place] [address] [place] Neutrophils (Bld) [#/Vol] 2.49 10*3/uL Normal 1.45-7.50 [facility] Comment on above: Order Comment: Speci men Type: BLOOD SPECIMEN Ordering Facility: [facility] Address: [address] [place] [address] Performed By: #### 5 7021-8 #### [facility] CLIA [id number] [address] [place] [address] [place] Neutrophils/100 WBC (Bld) 58.2 % Normal [facility] Comment on above: Order Comment: Speci men Type: BLOOD SPECIMEN Ordering Facility: [facility] Address: [address] [place] [address] Performed By: #### 5 7021-8 #### [facility] CLIA [id number] [address] [place] [address] [place] Nucleated RBC (Bld) [#/Vol] 10*3/uL Normal <0.01 [facility] Comment on above: Order Comment: Speci men Type: BLOOD SPECIMEN Ordering Facility: [facility] Address: [address] [place] [address] Performed By: #### 5 7021-8 #### [facility] CLIA [id number] [address] [place] [address] [place] Nucleated RBC/100 WBC (Bld) [Ratio] 0.0 /100 WBC Normal [facility] Comment on above: Order Comment: Speci men Type: BLOOD SPECIMEN Ordering Facility: [facility] Address: [address] [place] [address] Performed By: #### 5 7021-8 #### [facility] CLIA [id number] [address] [place] [address] [place] Platelet mean volume (Bld) [Entitic vol] 9.0 fL Normal 9.0-12.7 [facility] Comment on above: Order Comment: Speci men Type: BLOOD SPECIMEN Ordering Facility: [facility] Address: [address] [place] [address] Performed By: #### 5 7021-8 #### [facility] CLIA [id number] [address] [place] [address] [place] Platelets (Bld) [#/Vol] 246 10*3/uL Normal 150-400 [facility] Comment on above: Order Comment: Speci men Type: BLOOD SPECIMEN Ordering Facility: [facility] Address: [address] [place] [address] Performed By: #### 5 7021-8 #### [facility] CLIA [id number] [address] [place] [address] [place] RBC (Bld) [#/Vol] 3.06 10*6/uL Low 3.90-5.20 [facility] Comment on above: Order Comment: Speci men Type: BLOOD SPECIMEN Ordering Facility: [facility] Address: [address] [place] [address] Performed By: #### 5 7021-8 #### [facility] CLIA [id number] [address] [place] [address] [place] WBC (Bld) [#/Vol] 4.28 10*3/uL Normal 3.70-11.00 [facility] Comment on above: Order Comment: Speci men Type: BLOOD SPECIMEN Ordering Facility: [facility] Address: [address] [place] [address] Performed By: #### 5 7021-8 #### [facility] CLIA [id number] [address] [place] [address] [place] CONSULTon 08-26-2024 CONSULT HNO ID: [id number] Author: KAYLEIGH SINGH MD Service: Neurosurgery Author Type: Resident Type: Consults Filed: 08/27/2024 02:47 Note Text: NEUROSURGERY CONSULT HISTORY AND PHYSICAL EXAMINATION PLEASE DO NOT REMOVE FROM THE CHART OR MODIFY PRINTED COPY Patient Name: Ike Flannery CONSULTED BY: Oncology CONSULTED FOR: Cerebellar mass CHIEF COMPLAINT: HPI: 53 year old right-handed female with PMH significant for HTN, DVT (on Eliquis) metastatic breast cancer diagnosed 03/2023 (to liver) s/p chemoradiation, s/p right breast tissue putty mixer placement (not MRI compatible), currently on Xeloda, presenting to [place] ED on 08/25 with slurred speech and right hand weakness. CTH w/ IV contrast demonstrated a 1.4 x 1.8cm contrast-enhancing mass in the cerebellar vermis, presumed metastasis. Neurosurgery consulted for evaluation. Currently on Xeloda (capecitabine). Underwent previous chemoimmunotherapy through 2023 - 2024. Plastic surgery involved, tentative plan for right breast implant removal on 08/30/2024. States that speech slurring only lasted intermittently for 2-3 days, along with right hand weakness. Currently mostly resolved with some slight word slurring. Initial symptoms prompted evaluation at [place] which led to current findings. Denies recent episodes of chest pain/SOB, fever/chills, [place], abdominal pain, nausea/emesis, blurry vision, seizures, traumas/falls Anti-platelets/anti-co agulants: Eliquis (08/26 AM) PAST MEDICAL HISTORY: PAST MEDICAL HISTORY Diagnosis Date Breast cancer (HCC) 04/02/2023 Completed therapy. On Estrogen jay therpay PAST SURGICAL HISTORY: PAST SURGICAL HISTORY Procedure Laterality Date INSERTION OR REPLACEMENT OF BREAST IMPLANT ON SEPARATE DAY FROM MASTECTOMY BILATERAL Bilateral 10/28/2023 FAMILY HISTORY: FAMILY HISTORY Adopted: Yes SOCIAL HISTORY: Social History Tobacco Use Smoking status: Never Passive exposure: Never Smokeless tobacco: Never Substance Use Topics Alcohol use: Not Currently Comment: Occasional wine Drug use: Never MEDICATIONS: amikacin (AMIKIN) 500 mg/2 mL solnDisp: Rfl: ELIQUIS 5 mg tab(s)Take 5 mg by mouth.Disp: Rfl: carvedilol (COREG) 12.5 mg tabletTake 12.5 mg by mouth.Disp: Rfl: cyanocobalamin (VITAMIN B-12) 1,000 mcg tabTake 1,000 mcg by mouth.Disp: Rfl: FEROSUL 325 mg (65 mg iron) tabletTake 1 tablet by mouth two times a day with meals.Disp: Rfl: folic acid 1 mg tabletTake 1 mg by mouth.Disp: Rfl: gabapentin (NEURONTIN) 300 mg capsuleTake 300 mg by mouth two times a day.Disp: Rfl: imipenem/cilastatin sodium (IMIPENEM-CILASTATIN INTRAVENOUS)Inject 1,000 mg intravenously two times a day.Disp: Rfl: magnesium oxide 400 mg magnesium tabTake 400 mg by mouth.Disp: Rfl: omadacycline (NUZYRA) 150 mg tabletTake 300 mg by mouth.Disp: Rfl: pyridoxine, vitamin B6, (VITAMIN B6) 50 mg tabletTake 50 mg by mouth.Disp: Rfl: spironolactone (ALDACTONE) 25 mg tabletTake 12.5 mg by mouth once daily.Disp: Rfl: CLOFAZIMINE, BULK, MISCTake 100 mg by mouth.Disp: Rfl: 0.9 % sodium chloride (NACL 0.9%) infusionDisp: Rfl: cyclobenzaprine (FLEXERIL) 10 mg tabletTake 1 tablet by mouth every evening.Disp: Rfl: diazePAM (VALIUM) 5 mg tabletTake 1 tablet (5 mg total) by mouth every 12 (twelve) hours as needed for anxiety or muscle spasms (Give 30min prior to dressing change) for up to 10 days for anxietyDisp: Rfl: hydrOXYzine HCl (ATARAX) 25 mg tabletTake 25 mg by mouth.Disp: Rfl: oxyCODONE IR (ROXICODONE) 10 mg tabTake 1 tablet by mouth every 6 hours as needed.Disp: Rfl: oxyCODONE IR (ROXICODONE) 5 mg immediate release tabletTake 1 tablet (5 mg total) by mouth every 4 hours as needed for pain for up to 7 days. Max Daily Amount 30 mgDisp: Rfl: potassium chloride (K-TAB) 10 mEq tabletTAKE TWO TABLETS BY MOUTH TWICE A DAYDisp: Rfl: prochlorperazine (COMPAZINE) 10 mg tabletDisp: Rfl: Current Facility-Administered Medications Medication Dose Route Frequency NaCl 0.9% iv flush bag 20 mL INTRAVENOUS PRN carvedilol 12.5 mg tab(s) (COREG) 12.5 mg ORAL BID w MEALS gabapentin 300 mg cap(s) (NEURONTIN) 300 mg ORAL BID hydrOXYzine HCl 25 mg tab(s) (ATARAX) 25 mg ORAL q 4 H PRN spironolactone 12.5 mg tab(s) (ALDACTONE) 12.5 mg ORAL DAILY imipenem-cilastatin 1 g in NaCl 0.9% 250 mL (PRIMAXIN) 1 g INTRAVENOUS q 12 HR levoFLOXacin 750 mg tab(s) (LEVAQUIN) 750 mg ORAL DAILY (6 AM) amikacin 900 mg in D5W 50 mL 900 mg INTRAVENOUS MO-WE-FR heparin 5,000 Units injection 5,000 Units SUBCUTANEOUS q 8 H iv contrast (radiology procedure) INTRAVENOUS DIRECTED PRN dexAMETHasone 4 mg tab(s) (DECADRON) 4 mg ORAL BID w MEALS ALLERGIES: ALLERGIES Allergen Reactions Meperidine Other: See Comments, Rash, Swelling Other Reaction(s): Other, Unknown Vancomycin Other: See Comments Other Reaction(s): Other Intolerance: experienced acute kidney injury during a hospitalization, suspected due (more content not included)... [facility] CONSULT HNO ID: [id number] Author: PRECIOUS [place] MD Service: Plastic Surgery Author Type: Resident Type: Consults Filed: 08/29/2024 08:20 Note Text: Attestation signed by Precious [place] MD at 08/29/2024 8:20 AM Plan for OR for putty mixer removal Thursday. PLASTIC SURGERY CONSULTATION SERVICE DATE: 08/26/2024 SERVICE TIME: 4:30 PM Reason for Consultation: MRI incompatible R breast TE in setting of metastatic breast cancer workup Requesting Physician: Genna Sahu DO (Oncology) Subjective HPI: Ms. Flannery is a 53 year old female a history of right breast cancer (ER+, MD?, HER2?) treated with neoadjuvant chemotherapy and bilateral mastectomy on 10/28/2023, followed by bilateral tissue putty mixer placement, hx of DVT in the last year (on eliquis, last taken this AM). Pt admitted to [facility] today at the request of her OSH oncology team following new-onset 1 wk hx of slurred speech and identification of a right-sided brain mass on CT. MRI is now required for further oncologic workup. PRS consulted for management of Right breast TE. Existing Right Sientra AlloX2 tissue putty mixer is not MRI safe, precluding imaging. She denies pain, drainage, fevers, or other signs of Right breast infection. She is aware and agreeable to surgical explantation to facilitate her cancer staging and treatment. 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 [facility] mixer: Sientra AlloX2 14?12?cm, 480-575?cc, textured, integrated port Implant date: 10/28/2023 (Dr. Jenny Gross, [place], [place]) Not MRI compatible PAST MEDICAL HISTORY Diagnosis Date Breast cancer (HCC) 04/02/2023 Completed therapy. On Estrogen jay therpay PAST SURGICAL HISTORY Procedure Laterality Date INSERTION OR REPLACEMENT OF BREAST IMPLANT ON SEPARATE DAY FROM MASTECTOMY BILATERAL Bilateral 10/28/2023 FAMILY HISTORY Adopted: Yes Social History Tobacco Use Smoking status: Never Passive exposure: Never Smokeless tobacco: Never Substance Use Topics Alcohol use: Not Currently Comment: Occasional wine Drug use: Never amikacin (AMIKIN) 500 mg/2 mL soln, , Disp: , Rfl: , 08/24/2024 ELIQUIS 5 mg tab(s), Take 5 mg by mouth., Disp: , Rfl: , 08/26/2024 carvedilol (COREG) 12.5 mg tablet, Take 12.5 mg by mouth., Disp: , Rfl: , 08/26/2024 Morning cyanocobalamin (VITAMIN B-12) 1,000 mcg tab, Take 1,000 mcg by mouth., Disp: , Rfl: , 08/26/2024 Morning FEROSUL 325 mg (65 mg iron) tablet, Take 1 tablet by mouth two times a day with meals., Disp: , Rfl: , 08/26/2024 folic acid 1 mg tablet, Take 1 mg by mouth., Disp: , Rfl: , 08/26/2024 gabapentin (NEURONTIN) 300 mg capsule, Take 300 mg by mouth two times a day., Disp: , Rfl: , 08/26/2024 imipenem/cilastatin sodium (IMIPENEM-CILASTATIN INTRAVENOUS), Inject 1,000 mg intravenously two times a day., Disp: , Rfl: , 08/26/2024 Morning magnesium oxide 400 mg magnesium tab, Take 400 mg by mouth., Disp: , Rfl: , 08/26/2024 omadacycline (NUZYRA) 150 mg tablet, Take 300 mg by mouth., Disp: , Rfl: , 08/26/2024 Morning pyridoxine, vitamin B6, (VITAMIN B6) 50 mg tablet, Take 50 mg by mouth., Disp: , Rfl: , 08/26/2024 spironolactone (ALDACTONE) 25 mg tablet, Take 12.5 mg by mouth once daily., Disp: , Rfl: , 08/26/2024 CLOFAZIMINE, BULK, MISC, Take 100 mg by mouth., Disp: , Rfl: , 08/25/2024 Evening 0.9 % sodium chloride (NACL 0.9%) infusion, , Disp: , Rfl: , Unknown cyclobenzaprine (FLEXERIL) 10 mg tablet, Take 1 tablet by mouth every evening., Disp: , Rfl: , Unknown diazePAM (VALIUM) 5 mg tablet, Take 1 tablet (5 mg total) by mouth every 12 (twelve) hours as needed for anxiety or muscle spasms (Give 30min prior to dressing change) for up to 10 days for anxiety, Disp: , Rfl: , Unknown hydrOXYzine HCl (ATARAX) 25 mg tablet, Take 25 mg by mouth., Disp: , Rfl: , Unknown oxyCODONE IR (ROXICODONE) 10 mg tab, Take 1 tablet by mouth every 6 hours as needed., Disp: , Rfl: , Unknown oxyCODONE IR (ROXICODONE) 5 mg immediate release tablet, Take 1 tablet (5 mg total) by mouth every 4 hours as needed for pain for up to 7 days. Max Daily Amount 30 mg, Disp: , Rfl: , Unknown potassium chloride (K-TAB) 10 mEq tablet, TAKE TWO TABLETS BY MOUTH TWICE A DAY, Disp: , Rfl: , Unknown prochlorperazine (COMPAZINE) 10 mg tablet, , Disp: , Rfl: , Unknown Current Facility-Administered Medicat (more content not included)... [facility] CONSULT HNO ID: [id number] Author: CHRISTY DA SILVA MD Service: Infectious Disease Author Type: Physician Type: Consults Filed: 08/26/2024 18:16 Note Text: INFECTIOUS DISEASE CONSULT NOTE Date: August 26, 2024 Admission date: 08/26/24 Patient Name: Ike Flannery Asked to see patient by Dr. Sahu for Hx of mycobacterium abscesses as complication of bli mastectomy in 10/2023 . My recommendations will be communicated back by way of shared medical record. 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 Treated by ID (Dr Noguera in [place]) with Amikacin 750 mg MWF, Imipenem 1 g Q12H, and Omadacycline 300 mg daily - s/p R chest wall radiation - 02/26/2024: IANDD debridement and excision of infected seroma cavity on the left central breast with secondary closure, OR cx w/ M abscessus - 03/21/2024: L breast IANDD with adjancent tissue transfer reconstruction complicated by dehiscence and mediport exposure requiring another IANDD and Mediport removal on 05/02/2024 - exam on 06/01/24: Left breast wound measuring 14 x 3 cm with approximately 6 cm tunneling towards the previous port site proximally. Depth is 3/4 cm. The wound bed is healthy with granulation tissue. No surrounding erythema or necrosis. No purulent drainage. - 06/10/2024 breast cellulitis requiring another debridement on 06/14/2024- Now healed about 90% with some areas of fistulization around the edge. Current abx regimen: Amika- Started on Apr to current- 750 TID Inimepen 1g q12hrs from start day Oct to currently Omadacycline 300mg/d April 2024 till currently Clofaz 100mg q24h since Allergies/Intolerances : Pt was on Doxy oct- could not tolerate it- Had a rash Vanco - MIRNA Tigecycline- rash. Skin test with omadacycline prior to initiation. Was planned to continue current antibiotic regimen and repeat debridements until no new sinus tract formation. Patient admitted 08/26 with new slurred speech and R hand weakness after starting Xeloda (capecitabine). OSH imaging of head significant for new posterior fossa mass, enhancing. Concerning for metastatic disease. ID consulted due to M. Abscessus infection. Recent debridement 08/13 at [place] with culture positive for Pseudomonas (on levaquin x 10 days, 4 days remaining of her course). Anaerobic cx negative. Called [facility] and does not seem there is an AFB culture collected from the 08/12 debridement. However the 07/27 debridement did have a culture sent for AFB to [facility] (below) Patient has been afebrile since admission. Feeling alright but concerned about brain mass. Wound examined when plastic surgery at bedside- tentative plan to remove R breast tissue putty mixer so that MRI brain can be completed for staging/decision on intervention by rad-onc. PAST MEDICAL HISTORY Diagnosis Date Breast cancer (HCC) 04/02/2023 Completed therapy. On Estrogen jay therpay PAST SURGICAL HISTORY Procedure Laterality Date INSERTION OR REPLACEMENT OF BREAST IMPLANT ON SEPARATE DAY FROM MASTECTOMY BILATERAL Bilateral 10/28/2023 FAMILY HISTORY Adopted: Yes Social History Tobacco Use Smoking status: Never Passive exposure: Never Smokeless tobacco: Never Substance Use Topics Alcohol use: Not Currently Comment: Occasional wine Drug use: Never IMMUNIZATION HISTORY Immunization History Administered Date(s) Administered COVID-19 original vaccine, age 12+ yr, monovalent ([employer] - PURPLE TOP) 11/15/2020 COVID-19 vaccine, unspecified formulation 12/06/2020 MEDICATIONS Medications reviewed. Antibiotics Active Antimicrobials (From admission, onward) Start Stop 08/26/24 1430 imipenem-cilastatin 1,000 mg injection (PRIMAXIN) 1,000 mg, INTRAVENOUS, 2 TIMES DAILY -- 08/26/24 1430 omadacycline tab 300 mg (NUZYRA) 300 mg, ORAL, DAILY -- Immunosuppression Xeloda - did 14 days on, 7 days off. Last dose Thursday. Current Facility-Administered Medications Medication Dose Route Frequency NaCl 0.9% iv flush bag 20 mL INTRAVENOUS PRN carvedilol 12.5 mg tab(s) (COREG) 12.5 mg ORAL BID w MEALS hydrOXYzine HCl 25 mg tab(s) (ATARAX) 25 mg ORAL q 4 H PRN Clofazimine (Bulk) powd 100 mg 100 mg ORAL DAILY imipenem-cilastatin 1,000 mg injection (PRIMAXIN) 1,000 mg INTRAVENOUS BID omadacycline tab 300 mg (NUZYRA) 300 mg ORAL DAILY ALLERGIES ALLERGIES Allergen Reactions Meperidine Other: See Comments, Rash, Swelling Other Reaction(s): Other, Unknown Vancomycin Othe (more content not included)... [facility] CT BRAIN WO/W IVCONon 2024 CT BRAIN WO/W IVCON * * *Final Report* * * DATE OF EXAM: Aug 26 2024 9:58PM [facility] 0007 - CT [...] base and imaged soft tissues are unremarkable. IMPRESSION: Enhancing lesion in the cerebellar vermis, likely due to intracranial metastasis given history, with vasogenic edema and local mass effect. 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 Transcribe Date/Time: Aug 26 2024 10:00P Dictated by : GEORGIANA CARMICHAEL MD This examination was interpreted and the report reviewed and electronically signed by: GEORGIANA CARMICHAEL MD on Aug 26 2024 10:02PM EST [id number] [facility] Comprehensive metabolic 2000 panelon 08-26-2024 Albumin [Mass/Vol] 4.1 g/dL Normal 3.9-4.9 [facility] Comment on above: Order Comment: Anitha alex Type: BLOOD SPECIMEN Ordering Facility: [facility] Address: [address] [place] [address] Performed By: #### 5 7021-8 #### [facility] CLIA [id number] [address] [place] [address] [place] ALP [Catalytic activity/Vol] 110 U/L Normal 34-123 [facility] Comment on above: Order Comment: Anitha alex Type: BLOOD SPECIMEN Ordering Facility: [facility] Address: [address] [place] [address] Performed By: #### 5 7021-8 #### [facility] CLIA [id number] [address] [place] [address] [place] ALT [Catalytic activity/Vol] 106 U/L High 7-38 [facility] Comment on above: Order Comment: Phyliciai men Type: BLOOD SPECIMEN Ordering Facility: [facility] Address: [address] [place] [address] Performed By: #### 5 7021-8 #### [facility] CLIA [id number] [address] [place] [address] [place] Anion gap [Moles/Vol] 13 mmol/L Normal 8-15 [facility] Comment on above: Order Comment: Speci men Type: BLOOD SPECIMEN Ordering Facility: [facility] Address: [address] [place] [address] Performed By: #### 5 7021-8 #### [facility] CLIA [id number] [address] [place] [address] [place] AST [Catalytic activity/Vol] 94 U/L High 13-35 [facility] Comment on above: Order Comment: Speci men Type: BLOOD SPECIMEN Ordering Facility: [facility] Address: [address] [place] [address] Performed By: #### 5 7021-8 #### [facility] CLIA [id number] [address] [place] [address] [place] Bilirubin [Mass/Vol] 0.6 mg/dL Normal 0.2-1.3 [facility] Comment on above: Order Comment: Speci men Type: BLOOD SPECIMEN Ordering Facility: [facility] Address: [address] [place] [address] Performed By: #### 5 7021-8 #### [facility] CLIA [id number] [address] [place] [address] [place] Calcium [Mass/Vol] 9.6 mg/dL Normal 8.5-10.2 [facility] Comment on above: Order Comment: Speci men Type: BLOOD SPECIMEN Ordering Facility: [facility] Address: [address] [place] [address] Performed By: #### 5 7021-8 #### [facility] CLIA [id number] [address] [place] [address] [place] Chloride [Moles/Vol] 106 mmol/L Normal 98-107 [facility] Comment on above: Order Comment: Speci men Type: BLOOD SPECIMEN Ordering Facility: [facility] Address: [address] [place] [address] Performed By: #### 5 7021-8 #### [facility] CLIA [id number] [address] [place] [address] [place] CO2 [Moles/Vol] 22 mmol/L Normal 22-30 [facility] Comment on above: Order Comment: Speci men Type: BLOOD SPECIMEN Ordering Facility: [facility] Address: [address] [place] [address] Performed By: #### 5 7021-8 #### [facility] CLIA [id number] [address] [place] [address] [place] Creatinine [Mass/Vol] 1.24 mg/dL High 0.58-0.96 [facility] Comment on above: Order Comment: Speci men Type: BLOOD SPECIMEN Ordering Facility: [facility] Address: [address] [place] [address] Performed By: #### 5 7021-8 #### [facility] CLIA [id number] [address] [place] [address] [place] Creatinine and Glomerular filtration rate.predicted panel (S/P/Bld) 52 mL/min/1.73m??? Low >=60 [facility] Comment on above: Order Comment: Speci men Type: BLOOD SPECIMEN Ordering Facility: [facility] Address: [address] [place] [address] Result Comment: Latasha mated Glomerular Filtration Rate (eGFR) is calculated using the 2020 CKD-EPI creatinine equation. This equation utilizes serum creatinine, sex, and age as parameters. The creatinine assay has traceable calibration to isotope dilution-mass spectrometry. Refer to KDIGO guidelines for clinical interpretation. In patients with unstable renal function, e.g. those with acute kidney injury, the eGFR may not accurately reflect actual GFR. Performed By: #### 5 7021-8 #### [facility] CLIA [id number] [address] [place], [place] [id number] [place] Glucose [Mass/Vol] 83 mg/dL Normal 74-99 [facility] Comment on above: Order Comment: Anitha alex Type: BLOOD SPECIMEN Ordering Facility: [facility] Address: [address] [place] [address] Result Comment: The [place] Diabetes Association (ADA) provides guidance for cutoff [...] Standards of Medical Care in Diabetes 2016, [place] [employer] Association. Diabetes Care. 2016.39(Suppl 1). Performed By: #### 5 7021-8 #### [facility] CLIA [id number] [address] [place] [address] [place] Potassium [Moles/Vol] 3.9 mmol/L Normal 3.7-5.1 [facility] Comment on above: Order Comment: Anitha alex Type: BLOOD SPECIMEN Ordering Facility: [facility] Address: [address] [place] [address] Performed By: #### 5 7021-8 #### [facility] CLIA [id number] [address] [place] [address] [place] Protein [Mass/Vol] 6.1 g/dL Low 6.3-8.0 [facility] Comment on above: Order Comment: Anitha alex Type: BLOOD SPECIMEN Ordering Facility: [facility] Address: [address] [place] [address] Performed By: #### 5 7021-8 #### [facility] CLIA [id number] [address] [place] [address] [place] Sodium [Moles/Vol] 141 mmol/L Normal 136-144 [facility] Comment on above: Order Comment: Speci men Type: BLOOD SPECIMEN Ordering Facility: [facility] Address: [address] [place] [address] Performed By: #### 5 7021-8 #### [facility] CLIA [id number] [address] [place] [address] [place] Urea nitrogen [Mass/Vol] 13 mg/dL Normal 7-21 [facility] Comment on above: Order Comment: Speci men Type: BLOOD SPECIMEN Ordering Facility: [facility] Address: [address] [place] [address] Performed By: #### 5 7021-8 #### [facility] CLIA [id number] [address] [place] [address] [place] ECG COMPLETEon 08-26-2024 ECG COMPLETE Ventricular Rate : 6 2 BPM Atrial Rate : 62 BPM P-R Interval : 206 ms QRS Duration : 80 ms Q-T Interval : 398 ms QTC Calculation(Bazett) : 403 ms Calculated P Coleman : 37 degrees Calculated R Coleman : 7 degrees Calculated T Coleman : 65 degrees NORMAL SINUS RHYTHM WITH 1ST DEGREE AV BLOCK LOW VOLTAGE PRECORDIAL LEADS BORDERLINE ECG Confirmed by fellow SUDHA SPICER MD ([id number]) on 09/08/2024 11:22:04 AM Confirmed by MD TRICE, PhD, ISA ([id number]) on 09/08/2024 1:41:33 PM NAME : IKE FLANNERY PID : [id number] : 1970 Gender : Female Race : ORD : [id number] Procedure Date : Aug 26 2024 18:20:39 Edit Date : Sep 08 2024 13:41:36 Diagnosis: NORMAL SINUS RHYTHM WITH 1ST DEGREE AV BLOCK LOW VOLTAGE PRECORDIAL LEADS BORDERLINE ECG Confirmed by fellow SUDHA SPICER MD ([id number]) on 09/08/2024 11:22:04 AM Confirmed by MD TRICE, PhD, ISA ([id number]) on 09/08/2024 1:41:33 PM Test Reason : Check QT Location : 170 : G70 G070-30 Overread By : MD TRICE, PhD,ISA Edited By : MD TRICE, PhD,ISA Referred By : PK BOSCH Acquired by : GEORGIANA BUNCH [facility] HISTORY PHYSICALon HISTORY PHYSICAL HNO ID: [id number] Author: GENNA SAHU DO Service: Oncology Author Type: Physician Type: H&P Filed: 08/27/2024 15:23 Note Text: ONCOLOGY: HISTORY AND PHYSICAL Weekdays 7 AM to 5 PM / Weekends 7 AM to 3 PM: Page 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 (Resident) Weekdays 5 PM to 7 AM / Weekends 3 PM to 7 AM: Page [phone] (Onc Resident Science Editor) NAME: Ike Flannery SERVICE DATE: 08/26/2024 SERVICE TIME: 1:32 PM Chief Complaint New brain mass with slurred speech and RUE weakness History of Present Illness Ike Flannery ( ) is a 53 year old woman with a history of right breast cancer s/p 16 cycles of R chest wall radiation (last 01/2024), s/p chemotherapy with pembolizumab, paclitaxel+carboplatin , doxorubicin+cyclophosp hamide, most recently started daily Xeloda 1500mg BID, as well as hypertension, presenting with focal neurologic deficits and new finding of brain metastases at [facility]. About 1.5 weeks ago, shortly after starting Xeloda, she noticed slurred speech and right hand weakness (e.g., difficulty signing her name). Her oncologist obtained a CT brain which showed a new intracranial mass, therefore she was sent to [facility] ED. They were not able to obtain an MRI due to the presence of a tissue putty mixer in her right breast. She was transferred to [facility] to coordinate MRI brain and to transition her multidisciplinary care. Currently she is managed by 4-5 hospitals in [facility] for oncology, ID and plastic surgery with scattered medical records, however would like one centralized medical center. Oncologic History - Primary Cancer: Right breast cancer metastatic to liver and now brain, ER-weakly positive, MD-negative, HER2-negative ([facility] 0 on core biopsy, 1+ on residual disease at time of mastectomy). Liver biopsy 5/12/25 was ER-positive (41-50% weak staining), MD-negative, HER2-negative breast primary. - Primary Oncologist: MONICA Fay 07/21/24 - Diagnostic History: Dx 03/2023 by biopsy - BMBx in April 2024 - PET scan 06/12/24 demonstrated an approximately 2.5 cm avid mass in the posterior liver without other findings suggestive of metastatic disease. - Liver biopsy 07/11/24 demonstrated metastatic adenocarcinoma consistent with breast primary that is ER-positive (41-50% weak staining), MD-negative and HER2-negative ([facility] 0). - Treatment History: - Neoadjuvant chemo-immunotherapy therapy consisting of pemboliziumab with paclitaxel and carboplatin followed by doxorubicin and cyclophosphamide with continuing pembrolizumab - then bilateral mastectomy with right axillary dissection and tissue putty mixer reconstruction with multifocal residual disease, [id number] - She received adjuvant radiation and initiated adjuvant anastrozole in about January 2024 or March 2024 - also prescribed adjuvant abemaciclib which she believes she took for only about a week until her course was complicated by an infected seroma requiring removal of the left tissue putty mixer, mycobacterial infection, and pancytopenia - 10/2023: double mastectomy by Dr. Jhon Gross (plastic surgery) with several post op debridements, most recently on 07/27/24. Tissue expanders placed in anticipation of reconstruction, left was removed due to infection and right remains in place. 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 - Current Therapy: Capecitabine (Xeloda) 1500mg BID, started 08/03/24 - Home: Lives at home with . Rides a [employer] bike - Functional status: ECOG 0 Past Medical History PAST MEDICAL HISTORY Diagnosis Date Breast cancer (HCC) 04/02/2023 Completed therapy. On Estrogen jay therpay Past Surgical History PAST SURGICAL HISTORY Procedure Laterality Date INSERTION OR REPLACEMENT OF BREAST IMPLANT ON SEPARATE DAY FROM MASTECTOMY BILATERAL Bilateral 10/28/2023 Family History FAMILY HISTORY Adopted: Yes Social History Social History Tobacco Use Smoking status: Never Passive exposure: Never Smokeless tobacco: Never Substance Use Topics Alcohol use: Not Currently Comment: Occasional wine Drug use: Never Medications Prior to admission meds: amikacin (AMIKIN) 500 mg/2 mL soln, ELIQUIS 5 mg tab(s), Take 5 mg by mouth. carvedilol (COREG) 12.5 mg tablet, Take 12.5 mg by mouth. cyanocobalamin (VITAMIN B-12) 1,000 mcg tab, Take 1,000 mcg by mouth. FEROSUL 325 mg (65 mg iron) tablet, Take 1 tablet by mouth two times a day with meals. folic acid 1 mg tablet, Take 1 mg by mouth. gabapentin (NEURONTIN) 300 mg capsule, Take 300 mg by mouth two times a day. imipenem/cilastatin sodium (IMIPENEM-CILASTATIN INTRAVENOUS), Inject 1,000 mg intravenously two times a day. magnesium oxide 400 mg magnesium tab, (more content not included)... Normal [facility] Magnesium SerPl-mCncon 08-26 Magnesium [Mass/Vol] 2.1 mg/dL Normal 1.7-2.3 [facility] Comment on above: Order Comment: Speci men Type: BLOOD SPECIMEN Ordering Facility: [facility] Address: [address] [place] [address] Performed By: #### 5 7021-8 #### [facility] CLIA [id number] [address] [place] [address] [place] [address] [place] NURSING PROGon 08-26-2024 NURSING PROG HNO ID: [id number] Author: CATIE YOO RN Service: Radiology Author Type: Registered Nurse Type: Nursing Progress Note Filed: 08/26/2024 21:40 Note Text: Radiology Service Progress Note DATE OF SERVICE: August 26, 2024 TIME: 9:39 PM PATIENT WEIGHT: 194LBS PATIENT IDENTITY VERIFICATION COMPLETED USING TWO (2) STANDARD IDENTIFIERS: Name and Date of confirmed by patient verbally and Name and Date of confirmed by identification band. FALL SCREENING: Has the patient had 2 falls in the last year or 1 fall with injury or currently using an Ambulatory Assistive Device (Walker, Cane, Wheelchair, Crutches, etc.)? Inpatient: Screened on floor PATIENT GENDER DATA: Assigned female at . status: : No status: NO. ALLERGIES: Reviewed and unchanged CONTRAST ALLERGY: No EXAM: CT -CONTRAST INDUCED NEPHROPATHY RISK FACTORS: Not applicable CREATININE: Creatinine Date Value Ref Range Status 08/26/2024 1.24 (H) 0.58 - 0.96 mg/dL Final Estimated Glomerular Filtration Rate Date Value Ref Range Status 08/26/2024 52 (L) >=60 mL/min/1.73m? Final Comment: Estimated Glomerular Filtration Rate (eGFR) is calculated using the 2020 CKD-EPI creatinine equation. This equation utilizes serum creatinine, sex, and age as parameters. The creatinine assay has traceable calibration to isotope dilution-mass spectrometry. Refer to KDIGO guidelines for clinical interpretation. In patients with unstable renal function, e.g. those with acute kidney injury, the eGFR may not accurately reflect actual GFR. P.O.C.T. RESULTS: POC done: Yes, See Lab Tab August 26, 2024 TREATMENT: No Hydration needed. IV SITE: PICC positive for blood eturn and flushes easily w/o issue IV SITE APPEARANCE: Clean,Dry and Intact SIGNATURE: Catie Yoo RN PATIENT NAME: Ike Flannery DATE: August 26, 2024 TIME: 9:39 PM Normal [facility] Phosphate SerPl-mCncon 08-26 Phosphate [Mass/Vol] 3.2 mg/dL Normal 2.7-4.8 [facility] Comment on above: Order Comment: Speci men Type: BLOOD SPECIMEN Ordering Facility: [facility] Address: [address] [place] [address] Performed By: #### 5 7021-8 #### [facility] CLIA [id number] [address] [place] [address] [place] [address] [place] 36on 08-25-2024 36 RN spoke with Seema from Medical Records at [facility] to request labs from 08/24/24 be faxed to [facility] ID. Fax number confirmed. Normal [facility] Documentationon 08-25-2024 Documentation [id number] Ike Flannery Yumi 1970 F Date Provider Department Center 08/25/2024 [facility] Anthony Heal Family History Adopted: Yes Problem Relation Age of Onset Heart attack Father Family Status - Relation Status Age at Father Normal [facility] 36on 08-24-2024 36 Dania from [facility] called and is faxing the pt;'s results to us. States creatinine is higher and LFT's have increased. Normal [facility] Abstracton 08-24-2024 Abstract [id number] Ike Flannery 1970 F Date Provider Department Center 08/24/2024 [facility] PED Anthony Heal Family History Adopted: Yes Problem Relation Age of Onset Heart attack Father Family Status - Relation Status Age at Father Normal [facility] Erroneous Encounteron 2024 Erroneous Encounter [id number] Ike Flannery 1970 F Date Provider Department Center 08/24/2024 AMANUEL [facility] Anthony Heal Family History Adopted: Yes Problem Relation Age of Onset Heart attack Father Family Status - Relation Status Age at Father Reason for Visit and Comments: Error (VOID this visit) [77] Normal [facility] Orders Onlyon 08-24-2024 Orders Only [id number] Ike Flannery 1970 F Date Provider Department Center 08/24/2024 [facility] Heal Family History Adopted: Yes Problem Relation Age of Onset Heart attack Father Family Status - Relation Status Age at Father Normal [facility] 36on 08-22-2024 36 I called patient as follow up from 08/16 appointment to check if she got EKG done on 08/[address] Lui. The EKG is for monitoring QTc prolongation with new drug interaction of levofloxacin and clofazimine; levofloxacin is expected to be at steady-state. Patient called to get the EKG scheduled, but states that she did not receive a call back from the outside institution. She will follow up today; patient also indicates that she will be going to the outside institution to get her CMP and other routine ordered labs drawn today. Patient denies any acute symptoms suggestive of Torsades de Pointes and is stable. Patient will let me know when EKG is done so that I can follow up on the results. I communicated findings with Dr. Herman Lui. Avi Tobar, PharmD, BCPS; Clinical Research Pharmacist [facility] Telephoneon 08-22-2024 Telephone [id number] Ike Flannery 1970 F Date Provider Department Center 08/22/2024 ShubhamNicolasHERMAN LUI C INF Anthony Heal Family History Adopted: Yes Problem Relation Age of Onset Heart attack Father Family Status - Relation Status Age at Father Normal [facility] Documentationon 08-19-2024 Documentation [id number] Ike Flannery 1970 F Date Provider Department Center 08/19/2024 AmarilysSUZIAVI BUTCHER C INF Anthony Heal Family History Adopted: Yes Problem Relation Age of Onset Heart attack Father Family Status - Relation Status Age at Father Normal [facility] Documentationon 08-17-2024 Documentation [id number] Ike Flannery 1970 F Date Provider Department Center 08/17/2024 AmarilysSUZIAVI [facility]ER C INF Anthony Heal Family History Adopted: Yes Problem Relation Age of Onset Heart attack Father Family Status - Relation Status Age at Father [facility] 37on 08-16-2024 37 Take levofloxacin either 2 hours before or 2 hours after taking the iron. If you use tums same thing either 2 hours before or 2 hours. [facility] Follow-Upon 08-16-2024 Follow-Up [id number] Ike Flannery 1970 Date Provider Department Center 08/16/2024 [facility] Anthony Heal Family History Adopted: Yes Problem Relation Age of Onset Heart attack Father Family Status - Relation Status Age at Father Level of Service:74151 MD OFFICE/OUTPATIENT ESTABLISHED MOD MDM 30 MIN Reason for Visit and Comments: Follow-up [102269] [facility] ANAEROBIC CULTUREon 08-13-19 25 ANAEROBIC CULTURE CULTURE RESULTS NO GROWTH 5 DAYS Normal [facility] Comment on above: Order Comment: Pre-o p diagnosis:LEFT AXILLA WOUND Performed By: #### A NAC ####[facility] ([facility])[address] [facility] [address] [address] VIR FUNGAL CULTURE INCLUDES AVELINA AL SMEARon 08-12-2024 FUNGAL CULTURE INCLUDES FUNGAL SMEAR CULTURE RESULTS MYCOBACTERIUM ABSCESSUS Mycobacterium abscessus FUNGAL SMEAR No fungal elements seen On Direct Smear Normal [facility] Comment on above: Order Comment: Pre-o p diagnosis:LEFT AXILLA WOUNDContact microbiology if further workup is required for M.abscessus.No fungus isolated after 4 weeks. Performed By: #### F XIAO ####[facility] ([facility])[address] [facility] [address], [place] [address] VIR TISSUE CULTUREon 08-12-2024 TISSUE CULTURE Normal [facility] Comment on above: Order Comment: Pre-o p diagnosis:LEFT AXILLA WOUNDGrowth Observed At 2nd Day Performed By: #### T ISC ####[facility] ([facility])[address] [facility] [address] [address] VIR Abstracton 08-11-2024 Abstract [id number] Ike Flannery 1970 F Date Provider Department Center 08/11/2024 184-[facility]MAN LUI [facility] Anthony Heal Family History Adopted: Yes Problem Relation Age of Onset Heart attack Father Family Status - Relation Status Age at Father Normal [facility] Abstracton 08-03-2024 Abstract [id number] Ike Flannery 1970 F Date Provider Department Center 08/03/2024 184-HU [facility] Anthony Heal Family History Adopted: Yes Problem Relation Age of Onset Heart attack Father Family Status - Relation Status Age at Father Normal [facility] Documentationon 08-02-2024 Documentation [id number] Ike Flannery 1970 F Date Provider Department Center 08/02/2024 1045-AVI TOBAR [facility] INF Anthony Heal Family History Adopted: Yes Problem Relation Age of Onset Heart attack Father Family Status - Relation Status Age at Father Normal [facility] Orders Onlyon 08-02-2024 Orders Only [id number] Ike Flannery 1970 F Date Provider Department Center 08/02/2024 [id number], HISTORICAL [facility] INF Anthony Heal Family History Adopted: Yes Problem Relation Age of Onset Heart attack Father Family Status - Relation Status Age at Father Normal [facility] AMIKACIN PEAK Lester 07-29- 025 LOOK Sent to [facility]. Normal [facility] Comment on above: Order Comment: To be drawn one to two hours after completions of the 1700 dose of Amikacin Performed By: #### A MKP ####[facility] (TT)[address], [place] [address] VIR BASIC METABOLIC PANELon 07-02 Anion gap [Moles/Vol] 4 mmol/L Low 5-15 [facility] Comment on above: Performed By: #### B MP ####[facility] ([id number])[address] [place] [address] VIR Calcium [Mass/Vol] 8.3 mg/dL Low 8.5-10.5 [facility] Comment on above: Performed By: #### B MP ####[facility] ([id number])[address] [place] [address] VIR Chloride [Moles/Vol] 108 mmol/L Normal 98-109 [facility] Comment on above: Performed By: #### B MP ####[facility] ([id number])[address] [place] [address] VIR CO2 [Moles/Vol] 27 mmol/L Normal 22-32 [facility] Comment on above: Performed By: #### B MP ####[facility] ([id number])[address] [place] [address] VIR Creatinine [Mass/Vol] 0.77 mg/dL Normal 0.40-1.00 [facility] Comment on above: Result Comment: METH OD TRACEABLE TO IDMS STANDARD Performed By: #### B MP ####[facility] ([id number])[address] [place] [address] VIR EGFR (CKD-EPI) NON-RACE DEPENDENT >^90 Normal >=60 [facility] Comment on above: Result Comment: Repo rted eGFR is based on theCKD-EPI 2020 equation that doesnot use a race coefficient. Performed By: #### B MP ####[facility] ([id number])[address] [facility] [place] [address] VIR Glucose [Mass/Vol] 81 mg/dL Normal 65-99 [facility] Comment on above: Performed By: #### B MP ####[facility] ([id number])[address] [facility] [place] [address] VIR Potassium [Moles/Vol] 4.0 mmol/L Normal 3.5-5.0 [facility] Comment on above: Performed By: #### B MP ####[facility] ([id number])[address] [facility] [place] [address] VIR Sodium [Moles/Vol] 139 mmol/L Normal 134-146 [facility] Comment on above: Performed By: #### B MP ####[facility] ([id number])[address] [place] [address] VIR Urea nitrogen [Mass/Vol] 10 mg/dL Normal 5-23 [facility] Comment on above: Performed By: #### B MP ####[facility] ([id number])[address] [facility] [place] [address] VIR CBC WITH AUTO DIFFERENTIALon 07-29-2024 BASOPHILS ABSOLUTE COUNT (10*3/UL) BY AUTOMATED COUNT 0.0 10*3/uL Normal 0.0-0.2 [facility] Comment on above: Performed By: #### C BCA ####[facility] ([id number])[address] [place] [address] VIR BASOPHILS RELATIVE PERCENT BY AUTOMATED COUNT 0.8 % Normal [facility] Comment on above: Performed By: #### C BCA ####[facility] ([id number])[address] [facility] [place] [address] VIR CELLAVISION DIFFERENTIAL TYPE AUTOMATED DIFFERENTIAL Normal [facility] Comment on above: Performed By: #### C BCA ####[facility] ([id number])[address] [place] [address] VIR Eosinophils (Bld) [#/Vol] 0.3 10*3/uL Normal 0.0-0.4 [facility] Comment on above: Performed By: #### C BCA ####[facility] ([id number])[address] [place] [address] VIR EOSINOPHILS RELATIVE PERCENT BY AUTOMATED COUNT 5.4 % Normal [facility] Comment on above: Performed By: #### C BCA ####[facility] ([id number])[address] [place] [address], [place] [address] VIR Erythrocyte distribution width (RBC) [Ratio] 17.1 % High 11.5-15 [facility] Comment on above: Performed By: #### C BCA ####[facility] ([id number])[address] [place] [address], [place] [address] VIR Hematocrit (Bld) [Volume fraction] 27.6 % Low 35-47 [facility] Comment on above: Performed By: #### C BCA ####[facility] ([id number])[address] [place] [address] VIR Hemoglobin (Bld) [Mass/Vol] 9.9 g/dL Low 11.7-15.5 [facility] Comment on above: Performed By: #### C BCA ####[facility] ([id number])[address] [place] [address] VIR LYMPHOCYTES ABSOLUTE COUNT (10*3/UL) BY AUTOMATED COUNT 0.6 10*3/uL Low 1.0-3.5 [facility] Comment on above: Performed By: #### C BCA ####[facility] ([id number])[address] [place] [address] VIR LYMPHOCYTES RELATIVE PERCENT BY AUTOMATED COUNT 9.3 % Normal [facility] Comment on above: Performed By: #### C BCA ####[facility] ([id number])[address] [place] [address] VIR MCH (RBC) [Entitic mass] 32.8 pg Normal 27-34 [facility] Comment on above: Performed By: #### C BCA ####[facility] ([id number])[address] [place] [address] VIR MCHC (RBC) [Mass/Vol] 35.8 g/dL Normal 32-36 [facility] Comment on above: Performed By: #### C BCA ####[facility] ([id number])[address] [place] [address] VIR MCV (RBC) [Entitic vol] 92 fL Normal 80-100 [facility] Comment on above: Performed By: #### C BCA ####[facility] ([id number])[address] [facility] [place] [address] VIR MONOCYTES ABSOLUTE COUNT (10*3/UL) BY AUTOMATED COUNT 0.4 10*3/uL Normal 0.0-0.9 [facility] Comment on above: Performed By: #### C BCA ####[facility] ([id number])[address] [facility] [place] [address] VIR MONOCYTES RELATIVE PERCENT BY AUTOMATED COUNT 7.0 % Normal [facility] Comment on above: Performed By: #### C BCA ####[facility] ([id number])[address] [facility] [address] VIR NEUTROPHILS ABSOLUTE COUNT BY AUTOMATED COUNT 4.6 10*3/uL Normal 1.5-6.6 [facility] Comment on above: Performed By: #### C BCA ####[facility] ([id number])[address] [facility] [place] [address] VIR NEUTROPHILS RELATIVE PERCENT BY AUTOMATED COUNT 77.5 % Normal [facility] Comment on above: Performed By: #### C BCA ####[facility] ([id number])[address] [place] [address] VIR Platelet mean volume (Bld) [Entitic vol] 6.9 fL Low 7-12 [facility] Comment on above: Performed By: #### C BCA ####[facility] ([id number])[address] [place] [address] VIR Platelets (Bld) [#/Vol] 200 10*3/uL Normal 150-450 [facility] Comment on above: Performed By: #### C BCA ####[facility] ([id number])[address] [place] [address] VIR RBC COUNT 3.02 X10E12/L Low 3.8-5.2 [facility] Comment on above: Performed By: #### C BCA ####[facility] ([id number])[address] [place] [address] VIR WBC (Bld) [#/Vol] 5.9 10*3/uL Normal 4-11 [facility] Comment on above: Performed By: #### C BCA ####[facility] ([id number])[address] [place] [address] VIR DRYBRANCH GENERIC ORDERon 025 TEST RESULT SEE COMMENTS [facility] Comment on above: Result Comment: Test Result Flag Unit RefValue Amikacin, Peak, S 20.1 mcg/mL 20.0 - 35.0 Test Performed by: [facility] [address] [place] [address] Pulper Operator: Colten Sosa Ph.D.; CLIA# [id number] Performed By: #### M GO ####[facility] (SDL)[address] [place] [address] VIR 36on 07-28-2024 36 VM and callback left to verify patient received and infused 900mg amikacin Normal [facility] BASIC METABOLIC PANELon 07-01 Anion gap [Moles/Vol] 7 mmol/L Normal 5-15 [facility] Comment on above: Performed By: #### B MP ####[facility] ([id number])[address] [place] [address] VIR Calcium [Mass/Vol] 8.2 mg/dL Low 8.5-10.5 [facility] Comment on above: Performed By: #### B MP ####[facility] ([id number])[address] [facility] [place] [address] VIR Chloride [Moles/Vol] 106 mmol/L Normal 98-109 [facility] Comment on above: Performed By: #### B MP ####[facility] ([id number])[address] [facility] [place] [address] VIR CO2 [Moles/Vol] 24 mmol/L Normal 22-32 [facility] Comment on above: Performed By: #### B MP ####[facility] ([id number])[address] [facility] [place] [address] VIR Creatinine [Mass/Vol] 0.65 mg/dL Normal 0.40-1.00 [facility] Comment on above: Result Comment: METH OD TRACEABLE TO IDMS STANDARD Performed By: #### B MP ####[facility] ([id number])[address] [facility] [place] [address] VIR EGFR (CKD-EPI) NON-RACE DEPENDENT >^90 Normal >=60 [facility] Comment on above: Result Comment: Repo rted eGFR is based on theCKD-EPI 2020 equation that doesnot use a race coefficient. Performed By: #### B MP ####[facility] ([id number])5[address] [facility] [place] [address] VIR Glucose [Mass/Vol] 82 mg/dL Normal 65-99 [facility] Comment on above: Performed By: #### B MP ####[facility] ([id number])[address] [facility] [place] [address] VIR Potassium [Moles/Vol] 3.8 mmol/L Normal 3.5-5.0 [facility] Comment on above: Performed By: #### B MP ####[facility] ([id number])[address] [place] [address] VIR Sodium [Moles/Vol] 137 mmol/L Normal 134-146 [facility] Comment on above: Performed By: #### B MP ####[facility] ([id number])[address] [place] [address] VIR Urea nitrogen [Mass/Vol] 12 mg/dL Normal 5-23 [facility] Comment on above: Performed By: #### B MP ####[facility] ([id number])[address] [place] [address] VIR CBC WITH AUTO DIFFERENTIALon 07-28-2024 BASOPHILS ABSOLUTE COUNT (10*3/UL) BY AUTOMATED COUNT 0.0 10*3/uL Normal 0.0-0.2 [facility] Comment on above: Performed By: #### C BCA ####[facility] ([id number])[address] [place] [address] VIR BASOPHILS RELATIVE PERCENT BY AUTOMATED COUNT 0.5 % Normal [facility] Comment on above: Performed By: #### C BCA ####[facility] ([id number])[address] [place] [address] VIR CELLAVISION DIFFERENTIAL TYPE AUTOMATED DIFFERENTIAL Normal [facility] Comment on above: Performed By: #### C BCA ####[facility] ([id number])[address] [place] [address] VIR Eosinophils (Bld) [#/Vol] 0.2 10*3/uL Normal 0.0-0.4 [facility] Comment on above: Performed By: #### C BCA ####[facility] ([id number])[address] [place] [address] VIR EOSINOPHILS RELATIVE PERCENT BY AUTOMATED COUNT 4.5 % Normal [facility] Comment on above: Performed By: #### C BCA ####[facility] ([id number])5[address] [facility] [place] [address] VIR Erythrocyte distribution width (RBC) [Ratio] 17.1 % High 11.5-15 [facility] Comment on above: Performed By: #### C BCA ####[facility] ([id number])[address] [facility] [place] [address] VIR Hematocrit (Bld) [Volume fraction] 25.9 % Low 35-47 [facility] Comment on above: Performed By: #### C BCA ####[facility] ([id number])[address] [place] [address] VIR Hemoglobin (Bld) [Mass/Vol] 9.0 g/dL Low 11.7-15.5 [facility] Comment on above: Performed By: #### C BCA ####[facility] ([id number])[address] [place] [address] VIR LYMPHOCYTES ABSOLUTE COUNT (10*3/UL) BY AUTOMATED COUNT 0.3 10*3/uL Low 1.0-3.5 [facility] Comment on above: Performed By: #### C BCA ####[facility] ([id number])[address] [place] [address] VIR LYMPHOCYTES RELATIVE PERCENT BY AUTOMATED COUNT 6.1 % Normal [facility] Comment on above: Performed By: #### C BCA ####[facility] ([id number])[address] [facility] [place] [address] VIR MCH (RBC) [Entitic mass] 31.9 pg Normal 27-34 [facility] Comment on above: Performed By: #### C BCA ####[facility] ([id number])5[address] [facility] [place] [address] VIR MCHC (RBC) [Mass/Vol] 34.6 g/dL Normal 32-36 [facility] Comment on above: Performed By: #### C BCA ####[facility] ([id number])[address] [facility] [place] [address] VIR MCV (RBC) [Entitic vol] 92 fL Normal 80-100 [facility] Comment on above: Performed By: #### C BCA ####[facility] ([id number])[address] [place] [address] VIR MONOCYTES ABSOLUTE COUNT (10*3/UL) BY AUTOMATED COUNT 0.3 10*3/uL Normal 0.0-0.9 [facility] Comment on above: Performed By: #### C BCA ####[facility] ([id number])[address] [place] [address] VIR MONOCYTES RELATIVE PERCENT BY AUTOMATED COUNT 5.4 % Normal [facility] Comment on above: Performed By: #### C BCA ####[facility] ([id number])[address] [place] [address] VIR NEUTROPHILS ABSOLUTE COUNT BY AUTOMATED COUNT 4.2 10*3/uL Normal 1.5-6.6 [facility] Comment on above: Performed By: #### C BCA ####[facility] ([id number])5200 [place] [address] VIR NEUTROPHILS RELATIVE PERCENT BY AUTOMATED COUNT 83.5 % Normal [facility] Comment on above: Performed By: #### C BCA ####[facility] ([id number])5200 [place] [address] VIR Platelet mean volume (Bld) [Entitic vol] 6.8 fL Low 7-12 [facility] Comment on above: Performed By: #### C BCA ####[facility] ([id number])5200 [place] [address] VIR Platelets (Bld) [#/Vol] 195 10*3/uL Normal 150-450 [facility] Comment on above: Performed By: #### C BCA ####[facility] ([id number])5200 [place] [address] VIR RBC COUNT 2.81 X10E12/L Low 3.8-5.2 [facility] Comment on above: Performed By: #### C BCA ####[facility] ([id number])5200 [place] [address] VIR WBC (Bld) [#/Vol] 5.1 10*3/uL Normal 4-11 [facility] Comment on above: Performed By: #### C BCA ####[facility] ([id number])5200 [place] [address] VIR FERRITINon 07-28-2024 Ferritin [Mass/Vol] 374 ng/mL High 11-307 [facility] Comment on above: Performed By: #### F ERR ####[facility] ([id number])5200 [place] [address] VIR FOLATEon 07-28-2024 FOLIC ACID 6.9 ng/mL Normal >5.8 [facility] Comment on above: Performed By: #### F AKSHAT ####[facility] ([facility])[address], [place] [address] VIR IRON AND TIBCon 07-28-2024 Iron [Mass/Vol] 26 ug/dL Low 50-170 [facility] Comment on above: Performed By: #### F EPR ####[facility] ([facility])[address], [place] [address] VIR IRON BINDING 270 ug/dL Normal 250-425 [facility] Comment on above: Performed By: #### F EPR ####[facility] ([facility])[address], [place] [address] VIR IRON SATURATION 10 % SATURATION Low 15-50 [facility] Comment on above: Performed By: #### F EPR ####[facility] ([facility])[address], [place] [address] VIR Transferrin [Mass/Vol] 193 mg/dL Normal 168-336 [facility] Comment on above: Performed By: #### F EPR ####[facility] ([facility])[address], [place] [address] VIR PREALBUMINon 07-28-2024 Prealbumin [Mass/Vol] 19 mg/dL Normal 18-45 [facility] Comment on above: Performed By: #### P AB ####[facility] ([facility])[address], [place] [address] VIR VITAMIN B12on 07-28-2024 Cobalamin (Vitamin B12) [Mass/Vol] 984 pg/mL High 180-914 [facility] Comment on above: Performed By: #### B 12 ####[facility] ([facility])[address], [place] [address] VIR AFB CULTURE CONCENTRATED INC LUDES AFB SMEARon 07-27-2024 AFB CULTURE CONCENTRATED INCLUDES AFB SMEAR CULTURE RESULTS NO ACID FAST BACILLI ISOLATED IN 8 WEEKS AFB SMEAR No Acid Fast Bacili (Concentrated Smear) Normal [facility] Comment on above: Order Comment: Pre-o p diagnosis:LEFT BREAST WOUND Performed By: #### A FBCON ####[facility] ([facility])[address], [place] [address] VIR AFB CULTURE CONCENTRATED INCLUDES AFB SMEAR Normal [facility] Comment on above: Order Comment: Pre-o p diagnosis:LEFT BREAST WOUND Performed By: #### A FBCON ####[facility] ([facility])[address], [place] [address] VIR 36on 07-22-2024 36 Patient was called today for follow up on the clofazimine intermediate-size expanded access program. All of the following discussion points were approved by Dr. Herman Lui: *Vaccine list to share with oncologist were reviewed with patient: Shingrix, COVID-19 booster, pneumonia vaccine, and Arexvy (RSV vaccine). Patient will communicate if a prescription from Dr. Lui is required for Arexvy. *Patient states that she thinks wound is looking better. Pictures of wound sent to Dr. Lui. *Patient reminded to get EKG done as part of required clofazimine treatment plan monitoring. EKGs are required approximately every 3 months. She will contact me after she gets the EKG done for follow up on the results to be shared with Dr. Lui. *Communicated with patient that amikacin regimen is being changed to 900 mg three times weekly and that [employer] will be reaching out to her with more information. This dose increase is in order to achieve approximately higher goal peak of around 35 mcg/mL. 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 Christy know that she remembered that her other oncologist prescribed Xeloda for her and she still has it. She wanted Dr. Christy to know so that she didn't go through the process of prescribing it for her. Is it ok for her to use what she has? Patient has been identified by name and birthdate. Requesting response back: [phone] (home) [phone] (cell) Karen Mirza July 22, 2024 Saman Joe, RN 07/22/2024 1:49 PM Signed Contacted patient via phone to discuss. Patient states that she has spoken to her local oncologist and they have recommended stopping the anastrozole and initiating capecitabine (Xeloda) now. Patient would like to confirm timing with Dr Christy, per notes it was mentioned to start new systemic therapy following recovery from planned surgical debridement next week. Patient requests clarification if Dr Christy has exact timing she would like patient to start as she has had difficulty with healing up to this point and is anxious to delay treatment for a significant period of time. Will review with Dr Christy and will update patient with recommendations once known. Saman Joe RN Allergies As of Date: 07/22/2024 Noted Allergy Reaction MEPERIDINE 03/17/2018 14 - Other: See Comments 2 - Rash 7 - Swelling Comments: Other Reaction(s): Other, Unknown VANCOMYCIN 01/25/2024 14 - Other: See Comments Comments: Other Reaction(s): Other Intolerance: experienced acute kidney injury during a hospitalization, suspected due to vancomycin. 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 - ELIQUIS 5 mg tab(s) Take 5 mg by mouth. - carvedilol (COREG) 12.5 mg tablet Take 12.5 mg by mouth. - cyanocobalamin (VITAMIN B-12) 1,000 mcg tab Take 1,000 mcg by mouth. - cyclobenzaprine (FLEXERIL) 10 mg tablet Take 1 tablet by mouth every evening. - diazePAM (VALIUM) 5 mg tablet Take 1 tablet (5 mg total) by mouth every 12 (twelve) hours as needed for anxiety or muscle spasms (Give 30min prior to dressing change) for up to 10 days for anxiety - FEROSUL 325 mg (65 mg iron) tablet Take 1 tablet by mouth two times a day with meals. - folic acid 1 mg tablet Take 1 mg by mouth. - gabapentin (NEURONTIN) 300 mg capsule Take 300 mg by mouth. - hydrOXYzine HCl (ATARAX) 25 mg tablet Take 25 mg by mouth. - imipenem/cilastatin sodium (IMIPENEM-CILASTATIN INTRAVENOUS) Inject 1,000 mg intravenously. - magnesium oxide 400 mg magnesium tab Take 400 mg by mouth. - omadacycline (NUZYRA) 150 mg tablet Take 300 mg by mouth. - oxyCODONE IR (ROXICODONE) 10 mg tab Take 1 tablet by mouth every 6 hours as needed. - oxyCODONE IR (ROXICODONE) 5 mg immediate release tablet Take 1 tablet (5 mg total) by mouth every 4 hours as needed for pain for up to 7 days. Max Daily Amount 30 mg - potassium chloride (K-TAB) 10 mEq tablet TAKE TWO TABLETS BY MOUTH TWICE A DAY - prochlorperazine (COMPAZINE) 10 mg tablet - pyridoxine, vitamin B6, (VITAMIN B6) 50 mg tablet Take 50 mg by mouth. - spironolactone (ALDACTONE) 25 mg tablet Take 25 mg by mouth. - CLOFAZIMINE, BULK, MISC Take 100 mg by mouth. Problem List As Of Date: 07/22/2024 (None) Encounter Status:Closed by SAMAN JEO on 07/27/24 [facility] OUTSIDE SURG PATH SLIDE REVI EWon 07-22-2024 ADDENDUM 1: Normal [facility] Comment on above: Order Comment: Speci men Type: FORMALIN-FIXED PARAFFIN-EMBEDDED TISSUE SPECIMENOrdering Facility: AP Outside Review Address: , , Result Comment: Adonay tubbs biomarkers (ER, PgR, and HER2) performed at the outside institution are available for review at the [facility] and demonstrate the tumor cells to be positive for ER (30% nuclear staining of tumor cells with moderate staining intensity), negative for MD (<1% nuclear staining of tumor cells), and negative for HER2 (score of 1+). [facility] 08/09/24 Addendum electronically signed by Kev Kang MD on 08/09/2024 at 0901 EDT Performed By: #### L [id number] ####[facility] ARE[facility] [id number] [address] STATES OF [facility] AP DISCLAIMER [facility] Comment on above: Order Comment: Speci men Type: FORMALIN-FIXED PARAFFIN-EMBEDDED TISSUE SPECIMENOrdering Facility: AP Outside Review Address: , , Result Comment: Jarod lorenzo Developed Test (LDT) Disclaimer: Performance characteristics of immunohistochemical, immunofluorescent, and chromogenic in-situ hybridization tests have been determined by the performing laboratory within [facility]'s Candice Max [facility] Pathology and Laboratory Medicine Department ([facility], [facility], [facility], [facility], [facility], [facility], or [facility]) in a manner consistent with CLIA requirements. One or more of these tests may not have been cleared or approved by the FDA. [facility] is regulated under CLIA as qualified to perform high-complexity testing. These tests are used for clinical purposes. These should not be regarded as investigational or for research. Positive and negative controls stain appropriately. Performed By: #### L [id number] ####[facility] LABIA [id number] [place] [id number] [place] CASE REPORT Normal [facility] Comment on above: Order Comment: Speci men Type: FORMALIN-FIXED PARAFFIN-EMBEDDED TISSUE SPECIMENOrdering Facility: AP Outside Review Address: , , Result Comment: S[facility] Pathology Report Case: [id number] Authorizing Provider: Bobby Christy MD Collected: 07/22/2024 03:52 PM Ordering Location: [facility] Received: 07/22/2024 03:51 PM [facility] Pathologist: Michael López MD Specimen: Slide(s), 11 SLIDES [id number] Performed By: #### L [id number] ####[facility] [id number] [address] [address] [place] DIAGNOSIS COMMENT Tumor cells are positive for CK7 and GATA3, with weak expression for ER. Negative stains include CK19, MD, and CDX2. [facility] Comment on above: Order Comment: Speci men Type: FORMALIN-FIXED PARAFFIN-EMBEDDED TISSUE SPECIMENOrdering Facility: AP Outside Review Address: , , Performed By: #### L [id number] ####[facility] LABCLIA [id number] [address] [address] [place] FINAL DIAGNOSIS Normal [facility] Comment on above: Order Comment: Speci men Type: FORMALIN-FIXED PARAFFIN-EMBEDDED TISSUE SPECIMENOrdering Facility: AP Outside Review Address: , , Result Comment: Live r mass, biopsy: - Adenocarcinoma, compatible with breast origin. at 1337 EDT Performed By: #### L [id number] ####[facility] LABCLIA [id number] [address] FINAL PERFORMING LAB Normal [facility] Comment on above: Order Comment: Speci men Type: FORMALIN-FIXED PARAFFIN-EMBEDDED TISSUE SPECIMENOrdering Facility: AP Outside Review Address: , , Result Comment: Diag nostic interpretation performed at: [facility], [facility] [place] [address] CLIA# [id number] Cow Buyer: Derick Meadows MD Performed By: #### L [id number] ####[facility] LAB[facility]IA [id number] [address] STATES OF [facility] Orders Onlyon 07-22-2024 Orders Only [id number] Ike Flannery Yumi 1970 F Date Provider Department Center 07/22/2024 [facility] Family History Adopted: Yes Problem Relation Age of Onset Heart attack Father Family Status - Relation Status Age at Father Normal [facility] Telephoneon 07-22-2024 Telephone [id number] Ike Flannery Yumi 1970 F Date Provider Department Center 07/22/2024 HERMAN VIATL [facility] IN[facility] Family History Adopted: Yes Problem Relation Age of Onset Heart attack Father Family Status - Relation Status Age at Father Normal [facility] CNOVSPon 07-21-2024 CNOVSP Visit (SP) Office (HEMCA4) IKE FLANNERY ([id number]) 1970 F Date Time Provider Department 07/21/24 3:00 PM BOBBY CHRISTY During your visit today, we recorded the following information about you: Temperature Pulse Respiration Blood pressure 98.3 degrees 75/minute 18/minute 140/95 Weight Height 87.8 kg 1.778 m Bobby Christy MD 07/21/2024 4:48 PM Signed IDENTIFICATION: Ike Flannery is a 53 year old surgically postmenopausal woman with recent diagnosis of metastatic breast cancer referred by Dr. Aarti Hope for medical oncology consultation. HISTORY OF PRESENT ILLNESS: She was initially diagnosed with a lymph-node positive ER-weakly positive (12-15%), MD-negative, HER2-negative (IHC 0 on core biopsy, 1+ on residual disease at time of mastectomy) right breast cancer in March 2023. She was treated with neoadjuvant chemo-immunotherapy therapy consisting of pemboliziumab with paclitaxel and carboplatin followed by doxorubicin and cyclophosphamide with continuing pembrolizumab then underwent bilateral mastectomy with right axillary dissection and tissue putty mixer reconstruction at which time there was multifocal residual disease, [id number]. She received adjuvant radiation and initiated adjuvant anastrozole in about January 2024 or March 2024. She was also prescribed adjuvant abemaciclib which she believes she took for only about a week until her course was complicated by an infected seroma requiring removal of the left tissue putty mixer, mycobacterial infection, and pancytopenia. She had a BMBx in April and is interested in having that reviewed at [facility]. She has been dealing with issues related to infection and an open would on the left chest wall and had a chest CT 06/11/24 demonstrating the left chest open wound as well as right axillary spiculated soft tissue. A PET scan was done 06/12/24 and demonstrated an approximately 2.5 cm avid mass in the posterior liver without other findings suggestive of metastatic disease. Liver biopsy 07/11/24 demonstrated metastatic adenocarcinoma consistent with breast primary that is ER-positive (41-50% weak staining), MD-negative and HER2-negative (IHC 0). PMH: She has a h/o HTN, DVT (on Eliquis); she is s/p hysterectomy and subsequent BSO. FH:She is adopted and family history is not known. 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 She is engaged and has one adult son. EXAMINATION: Blood pressure 140/95, pulse 75, temperature 36.8 ?C (98.3 ?F), resp. rate 18, height 177.8 cm (5' 10 ), weight 87.8 kg (193 lb 9 oz), SpO2 100%. HEENT examination is unremarkable. No adenopathy is appreciated in the cervical or supraclavicular regions. The heart is regular. Lung examination is clear bilaterally. Examination of the left chest wall is notable for some open areas of wound which are being packed and some additional small pustular lesions. The right reconstructed breast is free of concerning masses. No axillary adenopathy is appreciated. Abdomen is soft and non-tender. There is no significant edema of the extremities. DATA: Recent labs were notable for transaminase elevations. 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 PLAN: I had a discussion with the patient and her fiance regarding management of her metastatic breast cancer. We discussed the liver biopsy results. We will plan pathology review of both the liver biopsy (and I will request assessment for HER2 ultra-low status) and bone marrow biopsy. She is anticipating surgical debridement next week. We discussed consideration of further systemic treatment following recovery from the debridement. Specifically, I have suggested consideration of oral capecitabine. We discussed that in the setting of responding disease, it may then be appropriate to consider targeted treatment to the liver such as RFI and could set up referral to Dr. Owusu here at [facility]. We discussed potential future treatment options including trastumab-deruxtecan if low-level HER2 expression is identified versus consideration of datopotamab-deruxtecan should the tumor be truly HER2-null. She and her fiance had the opportunity to have their questions addressed. She will continue to follow up with Dr. Hope. I would be happy to see her back at any point as necessary. I spent a total of about 60 minutes on the date of the service which included preparing to see the patient, [id number] patient care, completing clinical documentation, performing a medically appropriate examination, counseling and educating the patient/family/caregiv er, and communicating with other HCPs (not separately reported). Bobby Christy MD CC: Tosha Hansen, RN 07/21/2024 4:48 PM Signed Additional in (more content not included)... Normal [facility] CNOVon 07-19-2024 CNOV Office Visit (INFDMN ) IKE FLANNERY ([id number]) 1970 F Date Time Provider Department 07/19/24 8:00 AM [facility] During your visit today, we recorded the following information about you: Temperature Pulse Respiration Blood pressure 96.8 degrees 72/minute 18/minute 138/84 Weight 88.5 kg Krystin Barragan MD 07/27/2024 9:06 AM Signed INFECTIOUS DISEASES [facility] Ike Widman is being seen in consultation at the request of Dr. Aarti Hernnadez/ Javon King advice and/or opinion regarding the management of M abscess breast infection Chief complaint breast infection Note from patient, EPIC and Care everywhere HISTORIES: HPI: Patient is a 53 year old female history of hypertension, anemia, LLE DVT on Eliquis, R breast cancer 04/2023 s/p chemo x16 to till September 28/2024 followed by bilateral mastectomy with bilateral putty mixer placement, complicated by large L side large seroma. 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 Treated by ID (Dr Noguera) with Amikacin 750 mg MWF, Imipenem 1 g Q12H, and Omadacycline 300 mg daily - s/p R chest wall radiation - 02/26/2024: IANDD debridement and excision of infected seroma cavity on the left central breast with secondary closure, OR cx w/ M abscessus - 03/21/2024: L breast IANDD with adjancent tissue transfer reconstruction complicated by dehiscence and mediport exposure requiring another IANDD and Mediport removal on 05/02/2024 - exam on 06/01/24: Left breast wound measuring 14 x 3 cm with approximately 6 cm tunneling towards the previous port site proximally. Depth is 3/4 cm. The wound bed is healthy with granulation tissue. No surrounding erythema or necrosis. No purulent drainage. - 06/10/2024 breast cellulitis requiring another debridement on 06/14/2024- Now healed about 90% with some areas of fistulization around the edge. Patient is feeling well she is tolerationg current abx combination The wound is healing , packed almost healed Side effects - none. No NV, no rash. Current abx regimen Amika- Started on Apr to - 750 TID Inimepen 1g q12hrs from start day Oct to currently Omadacycline 300mg/d April 2024 till currently Clofaz 100mg q24h since ALL: Pt was on Doxy oct- could not tolerate it- Had a rash Vanco - MIRNA - Tigecycline- rash. Skin test with omadacycline prior to initiation. REVIEW OF SYSTEMS: General - no fevers, no chills, no NS, good appetite AND good energy level HEENT prescription glasses, retinal tear in October/2023 s/p laser thepapy no sore throat, ulcers Mouth - no thrush/ulcers - dry lips Lungs - no SOB or cough Heart - no CP, + ankle s/p L leg DVT after epo shot- [place] (x 1 year) Abd -no nausea/vomiting. No constipation, no diarrhea, no blood in stools MSK: neg joint edema. L knee arthritis- bilateral Skin - no rash, Ext - no edema - no dysuria or hematuria/ no flank pain. Nocturia once End- no polyuria, no dysuria. No heat or cold intolerance Heme - denies bleeding from any site Neuro: negative for focal numbness or weakness, or syncope. PSYCHIATRIC: negative for mood disorder - has a great support systmem with fiancy . The remainder of the ROS was negative. PAST MEDICAL HISTORY Diagnosis Date Breast cancer (HCC) 04/02/2023 Completed therapy. On Estrogen jay therpay PAST SURGICAL HISTORY Procedure Laterality Date INSERTION OR REPLACEMENT OF BREAST IMPLANT ON SEPARATE DAY FROM MASTECTOMY BILATERAL Bilateral 10/28/2023 FAMILY HISTORY Adopted: Yes Meds: 0.9 % sodium chloride (NACL 0.9%) infusion amikacin (AMIKIN) 500 mg/2 mL soln anastrozole (ARIMIDEX) 1 mg tablet Take 1 mg by mouth. ELIQUIS 5 mg tab(s) Take 5 mg by mouth. carvedilol (COREG) 12.5 mg tablet Take 12.5 mg by mouth. cyanocobalamin (VITAMIN B-12) 1,000 mcg tab Take 1,000 mcg by mouth. cyclobenzaprine (FLEXERIL) 10 mg tablet Take 1 tablet by mouth every evening. diazePAM (VALIUM) 5 mg tablet Take 1 tablet (5 mg total) by mouth every 12 (twelve) hours as needed for anxiety or muscle spasms (Give 30min prior to dressing change) for up to 10 days for anxiety folic acid 1 mg tablet Take 1 mg by mouth. gabapentin (NEURONTIN) 300 mg capsule Take 300 mg by mouth. hydrOXYzine HCl (ATARAX) 25 mg tablet Take 25 mg by mouth. imipenem/cilastatin sodium (IMIPENEM-CILASTATIN INTRAVENOUS) Inject 1,000 mg intravenously. magnesium oxide 400 mg magnesium tab Take 400 mg by mouth. omadacycline (NUZYRA) 150 mg tablet Take 300 mg by mouth. oxyCODONE IR (ROXICODONE) 10 mg tab Take 1 tablet by mouth every 6 hours as needed. oxyCODONE IR (ROXICODONE) 5 mg immediate release tablet Take 1 tablet (5 mg total (more content not included)... Normal [facility] Orders Onlyon 07-19-2024 Orders Only [id number] Ike Flannery 1970 F Date Provider Department Center 07/19/2024 [id number], HISTORICAL [facility] INF [facility] Family History Adopted: Yes Problem Relation Age of Onset Heart attack Father Family Status - Relation Status Age at Father Normal [facility] 36on 07-12-2024 36 Patient reached out to me to communicate that she has noticed her BP trending up, with reported readings around 150 to 160/100 to 110. She asked if this could be an adverse effect of omadacycline. In consultation with Dr. Herman uLi, I called patient and stated that omadacycline is likely not causing the increased BP as this is an uncommon adverse effect (approximately 3% per package insert) and also, it is very important to take the omadacycline to treat her infection. I called [facility] to let them know about the BP. They stated that the patient has not had an appointment with them in over a year, so she will need to come in before they prescribe any medications. Then I called Dr. Hope (oncologist) and he indicated that he would prescribe a short supply of spironolactone 25 mg daily in the interim before patient can get into primary care. Patient has previously taken spironolactone 25 mg daily, which was discontinued around December 2023 at hospital discharge due to acute kidney injury at that time (now resolved). I advised against amlodipine due to current edema. Finally, I called patient back to let her know that spironolactone 25 mg daily prescription was being sent to her preferred pharmacy. She is also continuing to take metoprolol XL 100 mg daily and will make sure that she has enough supply/refills. I counseled her that potassium can increase due to spironolactone, so it is very important to continue to get her labs done. She indicated interest in starting to check her BP at home and documenting the times/readings in her assistant media planner so that she can share them with primary care. She confirmed that she knows appropriate technique for checking BP. I also encouraged her to call primary care as soon as possible to make an appointment and re-establish care with them. Avi Tobar, PharmD, BCPS [facility] Telephoneon 07-12-2024 Telephone [id number] Ike Flannery Yumi 1970 F Date Provider Department Center 07/12/2024 HERMAN VITAL [facility] INF Anthony Heal Family History Adopted: Yes Problem Relation Age of Onset Heart attack Father Family Status - Relation Status Age at Father [facility] APTTon 07-11-2024 aPTT Coag (Caleb) [Time] 32 s Normal 26-37 [facility] Comment on above: Performed By: #### P TT ####[facility] ([id number])5[address] [place] [address] VIR IR PERCUTANEOUS BX LIVERon 0 07-11-2024 IR PERCUTANEOUS BX LIVER Normal [facility] PLATELET COUNTon 07-11-2024 Platelet mean volume (Bld) [Entitic vol] 7.1 fL Normal 7-12 [facility] Comment on above: Performed By: #### P LTCT ####[facility] ([id number])5[address] [place] [address] VIR Platelets (Bld) [#/Vol] 258 10*3/uL Normal 150-450 [facility] Comment on above: Performed By: #### P LTCT ####[facility] ([id number])5[address] [place] [address] VIR PROTIME AND INRon 07-11-2024 INR 1.0 Normal 0.9-1.2 [facility] Comment on above: Performed By: #### P INR ####[facility] ([id number])5[address] [place] [address] VIR PT Coag (PPP) [Time] 10.9 s Normal 9.8-13.2 [facility] Comment on above: Performed By: #### P INR ####[facility] ([id number])5[address] [place] [address] VIR Orders Onlyon 07-06-2024 Orders Only [id number] Ike Flannery Yumi 1970 F Date Provider Department Center 07/06/2024 [id number], HISTORICAL [facility] INF Anthony Heal Family History Adopted: Yes Problem Relation Age of Onset Heart attack Father Family Status - Relation Status Age at Father Normal [facility] Orders Onlyon 07-05-2024 Orders Only [id number] Ike Flannery 1970 F Date Provider Department Center 07/05/2024 [id number], HISTORICAL [facility] INF Anthony Heal Family History Adopted: Yes Problem Relation Age of Onset Heart attack Father Family Status - Relation Status Age at Father Normal [facility] Documentationon 05-01-2025 Documentation [id number] Ike Flannery 1970 Date Provider Department Center 06/30/2024 1045-VINICIUSAVI LOERA [facility] INF Anthony Heal Family History Adopted: Yes Problem Relation Age of Onset Heart attack Father Family Status - Relation Status Age at Father [facility] Documentation [id number] Ike Flannery 1970 Date Provider Department Center 06/30/2024 184-HERMAN LUI [facility] INF Anthony Heal Family History Adopted: Yes Problem Relation Age of Onset Heart attack Father Family Status - Relation Status Age at Father Reason for Visit and Comments: Telephone call to [facility] [Other] [facility] Follow-Upon 06-30-2024 Follow-Up [id number] Ike Flannery 1970 Provider Department Center 06/30/2024 HERMAN VITAL [facility] INF Anthony Heal Family History Adopted: Yes Problem Relation Age of Onset Heart attack Father Family Status - Relation Status Age at Father Level of Service:23447 MD OFFICE/OUTPATIENT ESTABLISHED MOD MDM 30 MIN [facility] Orders Onlyon 06-30-2024 Orders Only [id number] Ike Flannery 1970 Provider Department Center 06/30/2024 [id number], HISTORICAL [facility] INF Anthony Heal Family History Adopted: Yes Problem Relation Age of Onset Heart attack Father Family Status - Relation Status Age at Father [facility] 3606-28-2024 36 I am not sure if you want this refilled [facility] 36on 06-22-2024 36 RN called to request most recent labs be faxed to [facility] ID. Fax number confirmed [facility] Refillon 06-21-2024 Refill [id number] Ike Flannery 1970 Provider Department Center 06/21/2024 870-RYANODALYS BUTCHER [facility] INF Anthony Heal Family History Adopted: Yes Problem Relation Age of Onset Heart attack Father Family Status - Relation Status Age at Father Reason for Visit and Comments: Med Refill [[id number]] [facility] Refill [id number] Ike Flannery 1970 F Date Provider Department Center 06/21/2024 JosephHERMAN LUI [facility] INF Anthony Heal Family History Adopted: Yes Problem Relation Age of Onset Heart attack Father Family Status - Relation Status Age at Father Reason for Visit and Comments: Med Refill [[id number]] Normal [facility] CT CHEST WO CONTon CT CHEST WO CONT CT CHEST WO CONT *ADDENDUM*An addendum is being issued for billing: Minimal calcified coronary arterial disease. Finalized by Nemesio Berrios MD on 06/20/2024 2:39 PM Normal [facility] CBC AND AUTO DIFFon 06-16-19 25 ABSOLUTE BASOPHIL 0.0 X10E9/L Normal 0.0-0.2 [facility] Comment on above: Performed By: #### C BCA, CMP ####[facility] ([id number])5[address] [place] [address] ABSOLUTE NEUTROPHIL 4.0 X10E9/L Normal 1.5-6.6 [facility] Comment on above: Performed By: #### C BCA, CMP ####[facility] ([id number])5[address] [place] [address] Basophils/100 WBC (Bld) 0.7 % Normal [facility] Comment on above: Performed By: #### C BCA, CMP ####[facility] ([id number])5[address] [place] [address] Eosinophils (Bld) [#/Vol] 0.3 10*3/uL Normal 0.0-0.4 [facility] Comment on above: Performed By: #### C BCA, CMP ####[facility] ([id number])5[address] [place] [address] Eosinophils/100 WBC (Bld) 6.2 % Normal [facility] Comment on above: Performed By: #### C BCA, CMP ####[facility] ([id number])5[address] [place] [address] Erythrocyte distribution width (RBC) [Ratio] 19.1 % High 11.5-15.0 [facility] Comment on above: Performed By: #### C BCA, CMP ####[facility] ([id number])5[address] [facility] [place] [address] Hematocrit (Bld) [Volume fraction] 27.6 % Low 35-47 [facility] Comment on above: Performed By: #### C BCA, CMP ####[facility] ([id number])5200 [facility] [place] [address] Hemoglobin (Bld) [Mass/Vol] 9.4 g/dL Low 11.7-15.5 [facility] Comment on above: Performed By: #### C BCA, CMP ####[facility] ([id number])5200 [facility] [place] [address] Lymphocytes (Bld) [#/Vol] 0.7 10*3/uL Low 1.0-3.5 [facility] Comment on above: Performed By: #### C BCA, CMP ####[facility] ([id number])5200 [facility] [place] [address] Lymphocytes/100 WBC (Bld) 12.9 % Normal [facility] Comment on above: Performed By: #### C BCA, CMP ####[facility] ([id number])5200 [facility] [place] [address] MCH (RBC) [Entitic mass] 30.9 pg Normal 27-34 [facility] Comment on above: Performed By: #### C BCA, CMP ####[facility] ([id number])5200 [facility] [place] [address] MCHC (RBC) [Mass/Vol] 33.9 g/dL Normal 32-36 [facility] Comment on above: Performed By: #### C BCA, CMP ####[facility] ([id number])5200 [facility] [address] MCV (RBC) [Entitic vol] 91 fL Normal 80-100 [facility] Comment on above: Performed By: #### C BCA, CMP ####[facility] ([id number])5200 [facility] [place] [address] Monocytes (Bld) [#/Vol] 0.6 10*3/uL Normal 0-0.9 [facility] Comment on above: Performed By: #### C BCA, CMP ####[facility] ([id number])5[address] [place] [address] Monocytes/100 WBC (Bld) 10.3 % Normal [facility] Comment on above: Performed By: #### C BCA, CMP ####[facility] ([id number])5[address] [place] [address] Neutrophils/100 WBC (Bld) 69.9 % Normal [facility] Comment on above: Performed By: #### C BCA, CMP ####[facility] ([id number])5[address] [place] [address] Platelet mean volume (Bld) [Entitic vol] 7.1 fL Normal 7-12 [facility] Comment on above: Performed By: #### C BCA, CMP ####[facility] ([id number])5200 [facility] [place] [address] Platelets (Bld) [#/Vol] 227 10*3/uL Normal 150-450 [facility] Comment on above: Performed By: #### C BCA, CMP ####[facility] ([id number])5200 [facility] [place] [address] RBC COUNT 3.03 X10E12/L Low 3.80-5.20 [facility] Comment on above: Performed By: #### C BCA, CMP ####[facility] ([id number])5200 [facility] [place] [address] WBC (Bld) [#/Vol] 5.7 10*3/uL Normal 4.0-11.0 [facility] Comment on above: Performed By: #### C BCA, CMP ####[facility] ([id number])5[address] [place] [address] COMPREHENSIVE METABOLIC PANE [place] 06-15-2024 Albumin [Mass/Vol] 3.2 g/dL Normal 3.2-5.3 [facility] Comment on above: Performed By: #### C BCA, CMP ####[facility] ([id number])5[address] [place] [address] ALP [Catalytic activity/Vol] 64 U/L Normal 39-130 [facility] Comment on above: Performed By: #### C BCA, CMP ####[facility] ([id number])5[address] [facility] [place] [place] [address] ALT [Catalytic activity/Vol] 11 U/L Normal 0-31 [facility] Comment on above: Performed By: #### C BCA, CMP ####[facility] ([id number])5200 [facility] [place] [place] [address] Anion gap [Moles/Vol] 5 mmol/L Normal 5-15 [facility] Comment on above: Performed By: #### C BCA, CMP ####[facility] ([id number])5200 [facility] [place] [address] AST [Catalytic activity/Vol] 13 U/L Normal 0-41 [facility] Comment on above: Performed By: #### C BCA, CMP ####[facility] ([id number])5[address] [facility] [place] [address] Bilirubin [Mass/Vol] 0.7 mg/dL Normal 0.3-1.2 [facility] Comment on above: Performed By: #### C BCA, CMP ####[facility] ([id number])5[address] [facility] [place] [address] Calcium [Mass/Vol] 9.2 mg/dL Normal 8.5-10.5 [facility] Comment on above: Performed By: #### C BCA, CMP ####[facility] ([id number])5200 [place] [address] Chloride [Moles/Vol] 104 mmol/L Normal 98-109 [facility] Comment on above: Performed By: #### C BCA, CMP ####[facility] ([id number])5[address] [facility] [place] [address] CO2 [Moles/Vol] 29 mmol/L Normal 22-32 [facility] Comment on above: Performed By: #### C BCA, CMP ####[facility] ([id number])5200 [facility] [place] [address] Creatinine [Mass/Vol] 0.68 mg/dL Normal 0.40-1.00 [facility] Comment on above: Result Comment: METH OD TRACEABLE TO IDMS STANDARD Performed By: #### C BCA, CMP ####[facility] ([id number])5[address] [place] [address] eGFR (CKD-EPI) NON-RACE DEPENDENT >90 Normal >59 [facility] Comment on above: Result Comment: Repo rted eGFR is based on theCKD-EPI 2020 equation that doesnot use a race coefficient. Performed By: #### C BCA, CMP ####[facility] ([id number])5200 [facility] [place] [address] Glucose [Mass/Vol] 87 mg/dL Normal 65-99 [facility] Comment on above: Performed By: #### C BCA, CMP ####[facility] ([id number])5200 [facility] [place] [address] Potassium [Moles/Vol] 3.7 mmol/L Normal 3.5-5.0 [facility] Comment on above: Performed By: #### C BCA, CMP ####[facility] ([id number])5200 [facility] [place] [address] Protein [Mass/Vol] 5.3 g/dL Low 6.0-8.0 [facility] Comment on above: Performed By: #### C BCA, CMP ####[facility] ([id number])5200 [place] [address] Sodium [Moles/Vol] 138 mmol/L Normal 134-146 [facility] Comment on above: Performed By: #### C BCA, CMP ####[facility] ([id number])5[address] [facility] [place] [address] Urea nitrogen [Mass/Vol] 16 mg/dL Normal 5-23 [facility] Comment on above: Performed By: #### C BCA, CMP ####[facility] ([id number])5[address] [facility] [place] [address] [facility] ORDERon 16-2 025 TEST NAME PAMIK AMIKACIN PEAK SERUM Normal [facility] Comment on above: Performed By: #### G O ####[facility] ([id number])5200 [facility] [place] [address] TEST RESULT SEE COMMENTS 06/16/2024 12:45 PM Abnormal [facility] Comment on above: Result Comment: NOTE Test Result Flag Unit RefValue Amikacin, Peak, S 18.1 L mcg/mL 20.0 - 35.0 Test Performed by: [place] [address] Pulper Operator: Colten Sosa Ph.D.; CLIA# [id number] Performed By: #### G O ####[facility] ([id number])5[address] [facility] [place] [address] CBC AND AUTO DIFFon 06-15-19 25 ABSOLUTE BASOPHIL 0.1 X10E9/L Normal 0.0-0.2 [facility] Comment on above: Performed By: #### C BCA, CMP ####[facility] ([id number])5200 [facility] [place] [address] ABSOLUTE NEUTROPHIL 5.1 X10E9/L Normal 1.5-6.6 [facility] Comment on above: Performed By: #### C BCA, CMP ####[facility] ([id number])5200 [place] [address] Basophils/100 WBC (Bld) 0.9 % Normal [facility] Comment on above: Performed By: #### C BCA, CMP ####[facility] ([id number])5[address] [place] [address] Eosinophils (Bld) [#/Vol] 0.4 10*3/uL Normal 0.0-0.4 [facility] Comment on above: Performed By: #### C BCA, CMP ####[facility] ([id number])5200 [place] [address] Eosinophils/100 WBC (Bld) 6.2 % Normal [facility] Comment on above: Performed By: #### C BCA, CMP ####[facility] ([id number])5200 [place] [address] Erythrocyte distribution width (RBC) [Ratio] 19.4 % High 11.5-15.0 [facility] Comment on above: Performed By: #### C BCA, CMP ####[facility] ([id number])5[address] [place] [address] Hematocrit (Bld) [Volume fraction] 27.6 % Low 35-47 [facility] Comment on above: Performed By: #### C BCA, CMP ####[facility] ([id number])5[address] [place] [address] Hemoglobin (Bld) [Mass/Vol] 9.3 g/dL Low 11.7-15.5 [facility] Comment on above: Performed By: #### C BCA, CMP ####[facility] ([id number])5[address] [place] [address] Lymphocytes (Bld) [#/Vol] 0.8 10*3/uL Low 1.0-3.5 [facility] Comment on above: Performed By: #### C BCA, CMP ####[facility] ([id number])5[address] [facility] [place] [address] Lymphocytes/100 WBC (Bld) 10.8 % Normal [facility] Comment on above: Performed By: #### C BCA, CMP ####[facility] ([id number])5200 [facility] [place] [address] MCH (RBC) [Entitic mass] 30.6 pg Normal 27-34 [facility] Comment on above: Performed By: #### C BCA, CMP ####[facility] ([id number])5200 [facility] [place] [address] MCHC (RBC) [Mass/Vol] 33.6 g/dL Normal 32-36 [facility] Comment on above: Performed By: #### C BCA, CMP ####[facility] ([id number])5[address] [place] [address] MCV (RBC) [Entitic vol] 91 fL Normal 80-100 [facility] Comment on above: Performed By: #### C BCA, CMP ####[facility] ([id number])[address] [place] [address] Monocytes (Bld) [#/Vol] 0.6 10*3/uL Normal 0-0.9 [facility] Comment on above: Performed By: #### C BCA, CMP ####[facility] ([id number])5[address] [place] [address] Monocytes/100 WBC (Bld) 8.9 % Normal [facility] Comment on above: Performed By: #### C BCA, CMP ####[facility] ([id number])5[address] [place] [address] Neutrophils/100 WBC (Bld) 73.2 % Normal [facility] Comment on above: Performed By: #### C BCA, CMP ####[facility] ([id number])5200 [place] [address] Platelet mean volume (Bld) [Entitic vol] 7.0 fL Normal 7-12 [facility] Comment on above: Performed By: #### C BCA, CMP ####[facility] ([id number])5[address] [facility] [place] [address] Platelets (Bld) [#/Vol] 235 10*3/uL Normal 150-450 [facility] Comment on above: Performed By: #### C BCA, CMP ####[facility] ([id number])5[address] [place] [address] RBC COUNT 3.03 X10E12/L Low 3.80-5.20 [facility] Comment on above: Performed By: #### C BCA, CMP ####[facility] ([id number])5[address] [facility] [place] [address] WBC (Bld) [#/Vol] 7.0 10*3/uL Normal 4.0-11.0 [facility] Comment on above: Performed By: #### C BCA, CMP ####[facility] ([id number])5[address] [place] [address] COMPREHENSIVE METABOLIC PANE [place] 06-14-2024 Albumin [Mass/Vol] 3.2 g/dL Normal 3.2-5.3 [facility] Comment on above: Performed By: #### C BCA, CMP ####[facility] ([id number])5[address] [place] [address] ALP [Catalytic activity/Vol] 66 U/L Normal 39-130 [facility] Comment on above: Performed By: #### C BCA, CMP ####[facility] ([id number])5[address] [place] [address] ALT [Catalytic activity/Vol] 14 U/L Normal 0-31 [facility] Comment on above: Performed By: #### C BCA, CMP ####[facility] ([id number])5200 [facility] [place] [address] Anion gap [Moles/Vol] 6 mmol/L Normal 5-15 [facility] Comment on above: Performed By: #### C BCA, CMP ####[facility] ([id number])5200 [facility] [place] [address] AST [Catalytic activity/Vol] 18 U/L Normal 0-41 [facility] Comment on above: Performed By: #### C BCA, CMP ####[facility] ([id number])5200 [facility] [place] [address] Bilirubin [Mass/Vol] 0.5 mg/dL Normal 0.3-1.2 [facility] Comment on above: Performed By: #### C BCA, CMP ####[facility] ([id number])5200 [facility] [place] [address] Calcium [Mass/Vol] 8.9 mg/dL Normal 8.5-10.5 [facility] Comment on above: Performed By: #### C BCA, CMP ####[facility] ([id number])5[address] [place] [address] Chloride [Moles/Vol] 106 mmol/L Normal 98-109 [facility] Comment on above: Performed By: #### C BCA, CMP ####[facility] ([id number])5[address] [place] [address] CO2 [Moles/Vol] 28 mmol/L Normal 22-32 [facility] Comment on above: Performed By: #### C BCA, CMP ####[facility] ([id number])5[address] [place] [address] Creatinine [Mass/Vol] 0.71 mg/dL Normal 0.40-1.00 [facility] Comment on above: Result Comment: METH OD TRACEABLE TO IDMS STANDARD Performed By: #### C BCA, CMP ####[facility] ([id number])5200 [facility] [place] [address] eGFR (CKD-EPI) NON-RACE DEPENDENT >90 Normal >59 [facility] Comment on above: Result Comment: Repo rted eGFR is based on theCKD-EPI 2020 equation that doesnot use a race coefficient. Performed By: #### C BCA, CMP ####[facility] ([id number])5[address] [place] [address] Glucose [Mass/Vol] 101 mg/dL High 65-99 [facility] Comment on above: Performed By: #### C BCA, CMP ####[facility] ([id number])5[address] [place] [address] Potassium [Moles/Vol] 3.5 mmol/L Normal 3.5-5.0 [facility] Comment on above: Performed By: #### C BCA, CMP ####[facility] ([id number])5[address] [place] [address] Protein [Mass/Vol] 5.1 g/dL Low 6.0-8.0 [facility] Comment on above: Performed By: #### C BCA, CMP ####[facility] ([id number])5[address] [place] [address] Sodium [Moles/Vol] 140 mmol/L Normal 134-146 [facility] Comment on above: Performed By: #### C BCA, CMP ####[facility] ([id number])5[address] [place] [address] Urea nitrogen [Mass/Vol] 16 mg/dL Normal 5-23 [facility] Comment on above: Performed By: #### C BCA, CMP ####[facility] ([id number])5[address] [place] [address] 36on 06-13-2024 36 Patient called to cancel appointment this am with Dr. Moody, reports she is currently inpatient at [facility] and will need to reschedule at another time. I called infectious disease clinic and let them know of cancellation. Normal [facility] ANAEROBE CULTUREon 5 Bacteria identified Anaer cx Nom (Unsp spec) CULTURE RESULTS NO GROWTH 5 DAYS Normal [facility] Comment on above: Performed By: #### 6 35-3 ####[facility] ([id number])[address] [facility], [place] [address] Amikacin trough [Mass/Vol]on 06-13-2024 Amikacin, Trough, S <0.8 Normal <8.0 [facility] Comment on above: Result Comment: NOTE Test Performed by:[address] Director: Colten Sosa Ph.D.; CLIA# [id number] Performed By: #### 3 321-7 ####[facility] ([id number])5[address] [place] [address] CBC AND AUTO DIFFon 06-14-19 25 ABSOLUTE BASOPHIL 0.0 X10E9/L Normal 0.0-0.2 [place] [facility] Comment on above: Performed By: #### C BCA, CMP ####[facility] ([id number])[address] [place] [address] ABSOLUTE NEUTROPHIL 4.1 X10E9/L Normal 1.5-6.6 [facility] Comment on above: Performed By: #### C BCA, CMP ####[facility] ([id number])[address] [place] [address] Basophils/100 WBC (Bld) 0.8 % Normal [facility] Comment on above: Performed By: #### C BCA, CMP ####[facility] ([id number])[address] [place] [address] Eosinophils (Bld) [#/Vol] 0.5 10*3/uL High 0.0-0.4 [facility] Comment on above: Performed By: #### C BCA, CMP ####[facility] ([id number])[address] [place] [address] Eosinophils/100 WBC (Bld) 8.0 % Normal [facility] Comment on above: Performed By: #### C BCA, CMP ####[facility] ([id number])[address] [place] [address] Erythrocyte distribution width (RBC) [Ratio] 19.1 % High 11.5-15.0 [facility] Comment on above: Performed By: #### C BCA, CMP ####[facility] ([id number])[address] [facility] [place] [address] Hematocrit (Bld) [Volume fraction] 28.5 % Low 35-47 [facility] Comment on above: Performed By: #### C BCA, CMP ####[facility] ([id number])[address] [place] [address] Hemoglobin (Bld) [Mass/Vol] 9.6 g/dL Low 11.7-15.5 [facility] Comment on above: Performed By: #### C BCA, CMP ####[facility] ([id number])[address] [place] [address] Lymphocytes (Bld) [#/Vol] 0.9 10*3/uL Low 1.0-3.5 [facility] Comment on above: Performed By: #### C BCA, CMP ####[facility] ([id number])[address] [place] [address] Lymphocytes/100 WBC (Bld) 14.2 % Normal [facility] Comment on above: Performed By: #### C BCA, CMP ####[facility] ([id number])[address] [place] [address] MCH (RBC) [Entitic mass] 31.0 pg Normal 27-34 [facility] Comment on above: Performed By: #### C BCA, CMP ####[facility] ([id number])[address] [place] [address] MCHC (RBC) [Mass/Vol] 33.8 g/dL Normal 32-36 [facility] Comment on above: Performed By: #### C BCA, CMP ####[facility] ([id number])[address] [facility] [place] [address] MCV (RBC) [Entitic vol] 92 fL Normal 80-100 [facility] Comment on above: Performed By: #### C BCA, CMP ####[facility] ([id number])[address] [facility] [place] [address] Monocytes (Bld) [#/Vol] 0.6 10*3/uL Normal 0-0.9 [facility] Comment on above: Performed By: #### C BCA, CMP ####[facility] ([id number])[address] [place] [address] Monocytes/100 WBC (Bld) 9.7 % Normal [facility] Comment on above: Performed By: #### C BCA, CMP ####[facility] ([id number])[address] [place] [address] Neutrophils/100 WBC (Bld) 67.3 % Normal [facility] Comment on above: Performed By: #### C BCA, CMP ####[facility] ([id number])[address] [place] [address] Platelet mean volume (Bld) [Entitic vol] 7.1 fL Normal 7-12 [facility] Comment on above: Performed By: #### C BCA, CMP ####[facility] ([id number])[address] [place] [address] Platelets (Bld) [#/Vol] 250 10*3/uL Normal 150-450 [facility] Comment on above: Performed By: #### C BCA, CMP ####[facility] ([id number])[address] [place] [address] RBC COUNT 3.10 X10E12/L Low 3.80-5.20 [facility] Comment on above: Performed By: #### C BCA, CMP ####[facility] ([id number])5[address] [facility] [place] [place] [address] WBC (Bld) [#/Vol] 6.1 10*3/uL Normal 4.0-11.0 [facility] Comment on above: Performed By: #### C BCA, CMP ####[facility] ([id number])[address] [place] [address] COMPREHENSIVE METABOLIC PANE [place] 06-13-2024 Albumin [Mass/Vol] 3.5 g/dL Normal 3.2-5.3 [facility] Comment on above: Performed By: #### C BCA, CMP ####[facility] ([id number])[address] [place] [address] ALP [Catalytic activity/Vol] 76 U/L Normal 39-130 [facility] Comment on above: Performed By: #### C BCA, CMP ####[facility] ([id number])[address] [place] [address] ALT [Catalytic activity/Vol] 14 U/L Normal 0-31 [facility] Comment on above: Performed By: #### C BCA, CMP ####[facility] ([id number])[address] [place] [address] Anion gap [Moles/Vol] 4 mmol/L Low 5-15 [facility] Comment on above: Performed By: #### C BCA, CMP ####[facility] ([id number])[address] [place] [address] AST [Catalytic activity/Vol] 16 U/L Normal 0-41 [facility] Comment on above: Performed By: #### C BCA, CMP ####[facility] ([id number])[address] [place] [address] Bilirubin [Mass/Vol] 0.5 mg/dL Normal 0.3-1.2 [facility] Comment on above: Performed By: #### C BCA, CMP ####[facility] ([id number])[address] [place] [address] Calcium [Mass/Vol] 9.1 mg/dL Normal 8.5-10.5 [facility] Comment on above: Performed By: #### C BCA, CMP ####[facility] ([id number])[address] [place] [address] Chloride [Moles/Vol] 107 mmol/L Normal 98-109 [facility] Comment on above: Performed By: #### C BCA, CMP ####[facility] ([id number])[address] [place] [address] CO2 [Moles/Vol] 27 mmol/L Normal 22-32 [facility] Comment on above: Performed By: #### C BCA, CMP ####[facility] ([id number])[address] [facility] [address] Creatinine [Mass/Vol] 0.66 mg/dL Normal 0.40-1.00 [facility] Comment on above: Result Comment: METH OD TRACEABLE TO IDMS STANDARD Performed By: #### C BCA, CMP ####[facility] ([id number])[address] [facility] [address] eGFR (CKD-EPI) NON-RACE DEPENDENT >90 Normal >59 [facility] Comment on above: Result Comment: Repo rted eGFR is based on theCKD-EPI 2020 equation that doesnot use a race coefficient. Performed By: #### C BCA, CMP ####[facility] ([id number])5[address] [facility] [address] Glucose [Mass/Vol] 92 mg/dL Normal 65-99 [facility] Comment on above: Performed By: #### C BCA, CMP ####[facility] ([id number])[address] [facility] [address] Potassium [Moles/Vol] 3.7 mmol/L Normal 3.5-5.0 [facility] Comment on above: Performed By: #### C BCA, CMP ####[facility] ([id number])5[address] [facility] [address] Protein [Mass/Vol] 5.3 g/dL Low 6.0-8.0 [facility] Comment on above: Performed By: #### C BCA, CMP ####[facility] ([id number])[address] [facility] [place] [address] Sodium [Moles/Vol] 138 mmol/L Normal 134-146 [facility] Comment on above: Performed By: #### C BCA, CMP ####[facility] ([id number])[address] [place] [address] Urea nitrogen [Mass/Vol] 16 mg/dL Normal 5-23 [facility] Comment on above: Performed By: #### C BCA, CMP ####[facility] ([id number])[address] [place] [address] FUNGAL CULTUREon 06-13-2024 Fungus identified Cx Nom (Unsp spec) FUNGAL SMEAR NO FUNGAL ELEMENTS SEEN ON DIRECT SMEAR CULTURE RESULTS [facility] GROUP DR. HERMAN LUI REQUESTS SUSCEPTIBILITY 06/29/24 SEE SEPARATE REPORT FOR SUSCEPTIBILITY 07/18/24 [facility] Comment on above: Performed By: #### 5 80-1 ####[facility] ([id number])2130 [facility], [address] [place] [address] SEND OUT TESTon 06-13-2024 SENT TO [facility] Comment on above: Result Comment: [phone] SPECIMEN LJ SLANT FROM LEFT BREAST TISSUE Normal [facility] TEST NAME: [facility] APPR O SUSCEPTIBILITY AND GENE RESISTANCE GENE TESTING [facility] TEST RESULT See separate report. View in OnBase or in EPIC. Normal [facility] TISSUE CULTUREon 06-13-2024 Bacteria identified Aer cx Nom (Tiss) GRAM STAIN 1 to 9 WHITE BLOOD CELLS/LPF 0 SQUAMOUS EPITHELIAL CELLS/LPF NO ORGANISMS SEEN CULTURE RESULTS NO GROWTH 3 DAYS Normal [facility] Comment on above: Performed By: #### 6 27-0 ####[facility] ([id number])[address] [facility], [address] [address] CBC AND AUTO DIFFon 06-13-19 25 ABSOLUTE BASOPHIL 0.1 X10E9/L Normal 0.0-0.2 [facility] Comment on above: Performed By: #### C BCA, CMP ####[facility] ([id number])5[address] [facility] [place] [address] ABSOLUTE NEUTROPHIL 4.4 X10E9/L Normal 1.5-6.6 [facility] Comment on above: Performed By: #### C BCA, CMP ####[facility] ([id number])5[address] [facility] [place] [address] Basophils/100 WBC (Bld) 1.0 % Normal [facility] Comment on above: Performed By: #### C BCA, CMP ####[facility] ([id number])5200 [facility] [place] [address] Eosinophils (Bld) [#/Vol] 0.5 10*3/uL High 0.0-0.4 [facility] Comment on above: Performed By: #### C BCA, CMP ####[facility] ([id number])5[address] [facility] [place] [address] Eosinophils/100 WBC (Bld) 7.5 % Normal [facility] Comment on above: Performed By: #### C BCA, CMP ####[facility] ([id number])5[address] [facility] [place] [address] Erythrocyte distribution width (RBC) [Ratio] 19.9 % High 11.5-15.0 [facility] Comment on above: Performed By: #### C BCA, CMP ####[facility] ([id number])5[address] [facility] [place] [address] Hematocrit (Bld) [Volume fraction] 28.7 % Low 35-47 [facility] Comment on above: Performed By: #### C BCA, CMP ####[facility] ([id number])5[address] [facility] [place] [address] Hemoglobin (Bld) [Mass/Vol] 9.7 g/dL Low 11.7-15.5 [facility] Comment on above: Performed By: #### C BCA, CMP ####[facility] ([id number])5[address] [facility] [place] [address] Lymphocytes (Bld) [#/Vol] 0.9 10*3/uL Low 1.0-3.5 [facility] Comment on above: Performed By: #### C BCA, CMP ####[facility] ([id number])[address] [place] [address] Lymphocytes/100 WBC (Bld) 13.7 % Normal [facility] Comment on above: Performed By: #### C BCA, CMP ####[facility] ([id number])5[address] [facility] [address] MCH (RBC) [Entitic mass] 30.8 pg Normal 27-34 [facility] Comment on above: Performed By: #### C BCA, CMP ####[facility] ([id number])[address] [facility] [place] [address] MCHC (RBC) [Mass/Vol] 33.8 g/dL Normal 32-36 [facility] Comment on above: Performed By: #### C BCA, CMP ####[facility] ([id number])5[address] [facility] [address] MCV (RBC) [Entitic vol] 91 fL Normal 80-100 [facility] Comment on above: Performed By: #### C BCA, CMP ####[facility] ([id number])5[address] [facility] [address] Monocytes (Bld) [#/Vol] 0.7 10*3/uL Normal 0-0.9 [facility] Comment on above: Performed By: #### C BCA, CMP ####[facility] ([id number])5[address] [facility] [address] Monocytes/100 WBC (Bld) 10.4 % Normal [facility] Comment on above: Performed By: #### C BCA, CMP ####[facility] ([id number])[address] [facility] [address] Neutrophils/100 WBC (Bld) 67.4 % Normal [facility] Comment on above: Performed By: #### C BCA, CMP ####[facility] ([id number])[address] [place] [address] Platelet mean volume (Bld) [Entitic vol] 7.0 fL Normal 7-12 [facility] Comment on above: Performed By: #### C BCA, CMP ####[facility] ([id number])[address] [place] [address] Platelets (Bld) [#/Vol] 260 10*3/uL Normal 150-450 [facility] Comment on above: Performed By: #### C BCA, CMP ####[facility] ([id number])[address] [place] [address] RBC COUNT 3.16 X10E12/L Low 3.80-5.20 [facility] Comment on above: Performed By: #### C BCA, CMP ####[facility] ([id number])[address] [place] [address] WBC (Bld) [#/Vol] 6.5 10*3/uL Normal 4.0-11.0 [facility] Comment on above: Performed By: #### C BCA, CMP ####[facility] ([id number])5200 [facility] [place] [address] COMPREHENSIVE METABOLIC PANE [place] 06-12-2024 Albumin [Mass/Vol] 3.6 g/dL Normal 3.2-5.3 [facility] Comment on above: Performed By: #### C BCA, CMP ####[facility] ([id number])[address] [place] [address] ALP [Catalytic activity/Vol] 80 U/L Normal 39-130 [facility] Comment on above: Performed By: #### C BCA, CMP ####[facility] ([id number])[address] [place] [address] ALT [Catalytic activity/Vol] 15 U/L Normal 0-31 [facility] Comment on above: Performed By: #### C BCA, CMP ####[facility] ([id number])[address] [place] [address] Anion gap [Moles/Vol] 6 mmol/L Normal 5-15 [facility] Comment on above: Performed By: #### C BCA, CMP ####[facility] ([id number])[address] [facility] [place] [address] AST [Catalytic activity/Vol] 17 U/L Normal 0-41 [facility] Comment on above: Performed By: #### C BCA, CMP ####[facility] ([id number])5200 [facility] [address] Bilirubin [Mass/Vol] 0.5 mg/dL Normal 0.3-1.2 [facility] Comment on above: Performed By: #### C BCA, CMP ####[facility] ([id number])5200 [facility] [address] Calcium [Mass/Vol] 8.8 mg/dL Normal 8.5-10.5 [facility] Comment on above: Performed By: #### C BCA, CMP ####[facility] ([id number])5200 [facility] [place] [address] Chloride [Moles/Vol] 107 mmol/L Normal 98-109 [facility] Comment on above: Performed By: #### C BCA, CMP ####[facility] ([id number])5[address] [facility] [address] CO2 [Moles/Vol] 27 mmol/L Normal 22-32 [facility] Comment on above: Performed By: #### C BCA, CMP ####[facility] ([id number])5[address] [facility] [place] [address] Creatinine [Mass/Vol] 0.63 mg/dL Normal 0.40-1.00 [facility] Comment on above: Result Comment: METH OD TRACEABLE TO IDMS STANDARD Performed By: #### C BCA, CMP ####[facility] ([id number])5[address] [facility] [place] [address] eGFR (CKD-EPI) NON-RACE DEPENDENT >90 Normal >59 [facility] Comment on above: Result Comment: Repo rted eGFR is based on theCKD-EPI 2020 equation that doesnot use a race coefficient. Performed By: #### C BCA, CMP ####[facility] ([id number])[address] [place] [address] Glucose [Mass/Vol] 90 mg/dL Normal 65-99 [facility] Comment on above: Performed By: #### C BCA, CMP ####[facility] ([id number])5200 [facility] [place] [address] Protein [Mass/Vol] 5.5 g/dL Low 6.0-8.0 [facility] Comment on above: Performed By: #### C BCA, CMP ####[facility] ([id number])5200 [facility] [place] [address] Sodium [Moles/Vol] 140 mmol/L Normal 134-146 [facility] Comment on above: Performed By: #### C BCA, CMP ####[facility] ([id number])5[address] [facility] [address] Urea nitrogen [Mass/Vol] 13 mg/dL Normal 5-23 [facility] Comment on above: Performed By: #### C BCA, CMP ####[facility] ([id number])5200 [facility] [address] MAGNESIUMon 06-12-2024 Magnesium [Mass/Vol] 2.0 mg/dL Normal 1.8-2.6 [facility] Comment on above: Performed By: #### 1 9123-9 ####[facility] ([id number])5[address] [facility] [place] [address] POTASSIUMon 06-12-2024 Potassium [Moles/Vol] 3.8 mmol/L Normal 3.5-5.0 [facility] Comment on above: Performed By: #### 2 823-3 ####[facility] ([id number])[address] [facility] [place] [address] Potassium [Moles/Vol] 3.2 mmol/L Low 3.5-5.0 [facility] Comment on above: Performed By: #### 2 823-3 ####[facility] ([id number])5[address] [place] [address] Performed By: #### C BCA, CMP ####[facility] ([id number])5[address] [place] [address] BLOOD CULTUREon 06-11-2024 Bacteria identified Aer cx Nom (Bld) CULTURE RESULTS NO GROWTH 5 DAYS Normal [facility] Bacteria identified Aer cx Nom (Bld) CULTURE RESULTS NO GROWTH 5 DAYS Normal [facility] CBC AND AUTO DIFFon 06-12-19 25 ABSOLUTE BASOPHIL 0.1 X10E9/L Normal 0.0-0.2 [facility] Comment on above: Performed By: #### C ADARSH, , CBCA ####[facility] ([id number])[address] [place] [address] ABSOLUTE NEUTROPHIL 4.7 X10E9/L Normal 1.5-6.6 [facility] Comment on above: Performed By: #### C ADARSH, , CBCA ####[facility] ([id number])[address] [place] [address] Basophils/100 WBC (Bld) 1.2 % Normal [facility] Comment on above: Performed By: #### C ADARSH, , CBCA ####[facility] ([id number])[address] [place] [address] Eosinophils (Bld) [#/Vol] 0.5 10*3/uL High 0.0-0.4 [facility] Comment on above: Performed By: #### C ADARSH, , CBCA ####[facility] ([id number])[address] [place] [address] Eosinophils/100 WBC (Bld) 6.9 % Normal [facility] Comment on above: Performed By: #### C ADARSH, , CBCA ####[facility] ([id number])5200 [facility] [place] [address] Erythrocyte distribution width (RBC) [Ratio] 20.1 % High 11.5-15.0 [facility] Comment on above: Performed By: #### C ADARSH, , CBCA ####[facility] ([id number])5200 [facility] [place] [address] Hematocrit (Bld) [Volume fraction] 29.2 % Low 35-47 [facility] Comment on above: Performed By: #### C ADARSH, , CBCA ####[facility] ([id number])5200 [facility] [place] [address] Hemoglobin (Bld) [Mass/Vol] 9.9 g/dL Low 11.7-15.5 [facility] Comment on above: Performed By: #### C ADARSH, , CBCA ####[facility] ([id number])5200 [facility] [place] [address] Lymphocytes (Bld) [#/Vol] 1.1 10*3/uL Normal 1.0-3.5 [facility] Comment on above: Performed By: #### C ADARSH, , CBCA ####[facility] ([id number])5200 [facility] [place] [address] Lymphocytes/100 WBC (Bld) 15.8 % Normal [facility] Comment on above: Performed By: #### C ADARSH, , CBCA ####[facility] ([id number])5200 [facility] [place] [address] MCH (RBC) [Entitic mass] 30.8 pg Normal 27-34 [facility] Comment on above: Performed By: #### C ADARSH, , CBCA ####[facility] ([id number])5200 [facility] [place] [address] MCHC (RBC) [Mass/Vol] 33.9 g/dL Normal 32-36 [facility] Comment on above: Performed By: #### C ADARSH, , CBCA ####[facility] ([id number])[address] [place] [address] MCV (RBC) [Entitic vol] 91 fL Normal 80-100 [facility] Comment on above: Performed By: #### C ADARSH, , CBCA ####[facility] ([id number])5200 [facility] [place] [address] Monocytes (Bld) [#/Vol] 0.6 10*3/uL Normal 0-0.9 [facility] Comment on above: Performed By: #### C ADARSH, , CBCA ####[facility] ([id number])5200 [facility] [place] [address] Monocytes/100 WBC (Bld) 8.8 % Normal [facility] Comment on above: Performed By: #### C ADARSH, , CBCA ####[facility] ([id number])5200 [facility] [place] [address] Neutrophils/100 WBC (Bld) 67.3 % Normal [facility] Comment on above: Performed By: #### C ADARSH, , CBCA ####[facility] ([id number])[address] [place] [address] Platelet mean volume (Bld) [Entitic vol] 7.3 fL Normal 7-12 [facility] Comment on above: Performed By: #### C ADARSH, , CBCA ####[facility] ([id number])[address] [place] [address] Platelets (Bld) [#/Vol] 268 10*3/uL Normal 150-450 [facility] Comment on above: Performed By: #### C ADARSH, , CBCA ####[facility] ([id number])[address] [place] [address] RBC COUNT 3.21 X10E12/L Low 3.80-5.20 [facility] Comment on above: Performed By: #### C ADARSH, , CBCA ####[facility] ([id number])[address] [place] [address] WBC (Bld) [#/Vol] 6.9 10*3/uL Normal 4.0-11.0 [facility] Comment on above: Performed By: #### C ADARSH, , CBCA ####[facility] ([id number])[address] [place] [address] ABSOLUTE BASOPHIL 0.1 X10E9/L Normal 0.0-0.2 [facility] Comment on above: Performed By: #### C BCA, CMP ####[facility] ([id number])[address] [place] [address] ABSOLUTE NEUTROPHIL 5.7 X10E9/L Normal 1.5-6.6 [facility] Comment on above: Performed By: #### C BCA, CMP ####[facility] ([id number])[address] [place] [address] Basophils/100 WBC (Bld) 0.9 % Normal [facility] Comment on above: Performed By: #### C BCA, CMP ####[facility] ([id number])[address] [place] [address] Eosinophils (Bld) [#/Vol] 0.5 10*3/uL High 0.0-0.4 [facility] Comment on above: Performed By: #### C BCA, CMP ####[facility] ([id number])[address] [place] [address] Eosinophils/100 WBC (Bld) 6.2 % Normal [facility] Comment on above: Performed By: #### C BCA, CMP ####[facility] ([id number])[address] [place] [address] Erythrocyte distribution width (RBC) [Ratio] 20.0 % High 11.5-15.0 [facility] Comment on above: Performed By: #### C BCA, CMP ####[facility] ([id number])5200 [facility] [place] [address] Hematocrit (Bld) [Volume fraction] 30.0 % Low 35-47 [facility] Comment on above: Performed By: #### C BCA, CMP ####[facility] ([id number])[address] [place] [address] Hemoglobin (Bld) [Mass/Vol] 10.1 g/dL Low 11.7-15.5 [facility] Comment on above: Performed By: #### C BCA, CMP ####[facility] [facility] ([id number])5200 [place] [address] Lymphocytes (Bld) [#/Vol] 1.2 10*3/uL Normal 1.0-3.5 [facility] Comment on above: Performed By: #### C BCA, CMP ####[facility] ([id number])5200 [place] [address] Lymphocytes/100 WBC (Bld) 14.9 % Normal [facility] Comment on above: Performed By: #### C BCA, CMP ####[facility] ([id number])5200 [place] [address] MCH (RBC) [Entitic mass] 30.7 pg Normal 27-34 [facility] Comment on above: Performed By: #### C BCA, CMP ####[facility] ([id number])5200 [place] [address] MCHC (RBC) [Mass/Vol] 33.7 g/dL Normal 32-36 [facility] Comment on above: Performed By: #### C BCA, CMP ####[facility] ([id number])5200 [place] [address] MCV (RBC) [Entitic vol] 91 fL Normal 80-100 [facility] Comment on above: Performed By: #### C BCA, CMP ####[facility] ([id number])5200 [facility] [place] [address] Monocytes (Bld) [#/Vol] 0.7 10*3/uL Normal 0-0.9 [facility] Comment on above: Performed By: #### C BCA, CMP ####[facility] ([id number])5200 [facility] [place] [address] Monocytes/100 WBC (Bld) 8.3 % Normal [facility] Comment on above: Performed By: #### C BCA, CMP ####[facility] ([id number])5200 [facility] [place] [address] Neutrophils/100 WBC (Bld) 69.7 % Normal [facility] Comment on above: Performed By: #### C BCA, CMP ####[facility] ([id number])5200 [facility] [place] [address] Platelet mean volume (Bld) [Entitic vol] 7.1 fL Normal 7-12 [facility] Comment on above: Performed By: #### C BCA, CMP ####[facility] ([id number])5200 [facility] [address] Platelets (Bld) [#/Vol] 264 10*3/uL Normal 150-450 [facility] Comment on above: Performed By: #### C BCA, CMP ####[facility] ([id number])5200 [facility] [place] [address] RBC COUNT 3.30 X10E12/L Low 3.80-5.20 [facility] Comment on above: Performed By: #### C BCA, CMP ####[facility] ([id number])5200 [facility] [place] [address] WBC (Bld) [#/Vol] 8.2 10*3/uL Normal 4.0-11.0 [facility] Comment on above: Performed By: #### C BCA, CMP ####[facility] ([id number])5200 [place] [address] COMPREHENSIVE METABOLIC PANE [place] 06-11-2024 Albumin [Mass/Vol] 3.6 g/dL Normal 3.2-5.3 [facility] Comment on above: Performed By: #### C ADARSH, , CBCA ####[facility] ([id number])5200 [place] [address] ALP [Catalytic activity/Vol] 84 U/L Normal 39-130 [facility] Comment on above: Performed By: #### C ADARSH, , CBCA ####[facility] ([id number])5200 [place] [address] ALT [Catalytic activity/Vol] 17 U/L Normal 0-31 [facility] Comment on above: Performed By: #### C ADARSH, , CBCA ####[facility] ([id number])5200 [facility] [place] [address] Anion gap [Moles/Vol] 7 mmol/L Normal 5-15 [facility] Comment on above: Performed By: #### C ADARSH, , CBCA ####[facility] ([id number])5200 [facility] [place] [address] AST [Catalytic activity/Vol] 20 U/L Normal 0-41 [facility] Comment on above: Performed By: #### C ADARSH, , CBCA ####[facility] ([id number])5200 [facility] [place] [address] Bilirubin [Mass/Vol] 0.5 mg/dL Normal 0.3-1.2 [facility] Comment on above: Performed By: #### C ADARSH, , CBCA ####[facility] ([id number])5200 [facility] [place] [address] Calcium [Mass/Vol] 9.1 mg/dL Normal 8.5-10.5 [facility] Comment on above: Performed By: #### C ADARSH, , CBCA ####[facility] ([id number])5200 [facility] [place] [address] Chloride [Moles/Vol] 107 mmol/L Normal 98-109 [facility] Comment on above: Performed By: #### C ADARSH, , CBCA ####[facility] ([id number])5200 [facility] [address] CO2 [Moles/Vol] 26 mmol/L Normal 22-32 [facility] Comment on above: Performed By: #### C ADARSH, , CBCA ####[facility] ([id number])5200 [facility] [place] [address] Creatinine [Mass/Vol] 0.67 mg/dL Normal 0.40-1.00 [facility] Comment on above: Result Comment: METH OD TRACEABLE TO IDMS STANDARD Performed By: #### C ADARSH, , CBCA ####[facility] ([id number])5200 [facility] [place] [address] eGFR (CKD-EPI) NON-RACE DEPENDENT >90 Normal >59 [facility] Comment on above: Result Comment: Repo rted eGFR is based on theCKD-EPI 2020 equation that doesnot use a race coefficient. Performed By: #### C ADARSH, , CBCA ####[facility] ([id number])5200 [facility] [place] [address] Glucose [Mass/Vol] 82 mg/dL Normal 65-99 [facility] Comment on above: Performed By: #### C ADARSH, , CBCA ####[facility] ([id number])5200 [facility] [address] Potassium [Moles/Vol] 3.5 mmol/L Normal 3.5-5.0 [facility] Comment on above: Performed By: #### C ADARSH, , CBCA ####[facility] ([id number])5200 [facility] [place] [address] Protein [Mass/Vol] 5.7 g/dL Low 6.0-8.0 [facility] Comment on above: Performed By: #### C ADARSH, , CBCA ####[facility] ([id number])5200 [place] [address] Sodium [Moles/Vol] 140 mmol/L Normal 134-146 [facility] Comment on above: Performed By: #### C ADARSH, , CBCA ####[facility] ([id number])5200 [place] [address] Urea nitrogen [Mass/Vol] 11 mg/dL Normal 5-23 [facility] Comment on above: Performed By: #### C ADARSH, , CBCA ####[facility] ([id number])[address] [place] [address] Albumin [Mass/Vol] 3.8 g/dL Normal 3.2-5.3 [facility] Comment on above: Performed By: #### C BCA, CMP ####[facility] ([id number])5200 [place] [address] ALP [Catalytic activity/Vol] 87 U/L Normal 39-130 [facility] Comment on above: Performed By: #### C BCA, CMP ####[facility] ([id number])[address] [place] [address] ALT [Catalytic activity/Vol] 18 U/L Normal 0-31 [facility] Comment on above: Performed By: #### C BCA, CMP ####[facility] ([id number])[address] [place] [address] Anion gap [Moles/Vol] 6 mmol/L Normal 5-15 [facility] Comment on above: Performed By: #### C BCA, CMP ####[facility] ([id number])5200 [place] [address] AST [Catalytic activity/Vol] 21 U/L Normal 0-41 [facility] Comment on above: Performed By: #### C BCA, CMP ####[facility] ([id number])5200 [facility] [place] [address] Bilirubin [Mass/Vol] 0.4 mg/dL Normal 0.3-1.2 [facility] Comment on above: Performed By: #### C BCA, CMP ####[facility] ([id number])5200 [place] [address] Calcium [Mass/Vol] 9.4 mg/dL Normal 8.5-10.5 [facility] Comment on above: Performed By: #### C BCA, CMP ####[facility] ([id number])5200 [place] [address] Chloride [Moles/Vol] 106 mmol/L Normal 98-109 [facility] Comment on above: Performed By: #### C BCA, CMP ####[facility] ([id number])5200 [place] [address] CO2 [Moles/Vol] 28 mmol/L Normal 22-32 [facility] Comment on above: Performed By: #### C BCA, CMP ####[facility] ([id number])5200 [place] [address] Creatinine [Mass/Vol] 0.72 mg/dL Normal 0.40-1.00 [facility] Comment on above: Result Comment: METH OD TRACEABLE TO IDMS STANDARD Performed By: #### C BCA, CMP ####[facility] ([id number])5200 [place] [address] eGFR (CKD-EPI) NON-RACE DEPENDENT >90 Normal >59 [facility] Comment on above: Result Comment: Repo rted eGFR is based on theCKD-EPI 2020 equation that doesnot use a race coefficient. Performed By: #### C BCA, CMP ####[facility] ([id number])5200 [place] [address] Glucose [Mass/Vol] 97 mg/dL Normal 65-99 [facility] Comment on above: Performed By: #### C BCA, CMP ####[facility] ([id number])5200 [place] [address] Potassium [Moles/Vol] 3.3 mmol/L Low 3.5-5.0 [facility] Comment on above: Performed By: #### C BCA, CMP ####[facility] ([id number])5200 [place] [address] Protein [Mass/Vol] 6.0 g/dL Normal 6.0-8.0 [facility] Comment on above: Performed By: #### C BCA, CMP ####[facility] ([id number])5200 [place] [address] Sodium [Moles/Vol] 140 mmol/L Normal 134-146 [facility] Comment on above: Performed By: #### C BCA, CMP ####[facility] ([id number])5200 [place] [address] Urea nitrogen [Mass/Vol] 14 mg/dL Normal 5-23 [facility] Comment on above: Performed By: #### C BCA, CMP ####[facility] ([id number])5200 [place] [address] MAGNESIUMon 06-11-2024 Magnesium [Mass/Vol] 1.6 mg/dL Low 1.8-2.6 [facility] Comment on above: Performed By: #### [place], [address]-5, CBCA ####[facility] ([id number])5200 [place] [address] SUPERFICIAL WOUND CULTUREon 06-11-2024 Bacteria identified Aer cx Nom (Wound) GRAM STAIN 1 to 9 WHITE BLOOD CELLS/LPF 0 to 1 SQUAMOUS EPITHELIAL CELLS/LPF NO ORGANISMS SEEN CULTURE RESULTS RARE NORMAL SKIN EMILIE Normal [facility] Comment on above: Performed By: #### 6 32-0 ####[facility] ([id number])2130 [facility], [address] [address] 36on 06-08-2024 36 Pt is wondering if s he still needs weekly Amikacin levels as well as there is concern for a spot above wound that is red and hot to the touch there is a white pimple looking bump. Pt reports picture in [employer] for you to review. Normal [facility] 36on 06-07-2024 36 RN called to request most recent labs be faxed to [facility] ID. Fax number confirmed Normal [facility] Glucose Glucometer (BldC) [M ass/Vol]Ordered By: Aarti Hope on 06-03-2024 Glucose [Mass/Vol] Capillary blood glucose measurement by glucometer (mass/volume) [facility] Comment on above: Random Glucose Refer ence Range is dependent on time and content of last meal. Glucose of more than 200 mg/dL in a nonstressed, ambulatory subject supports the diagnosis of Diabetes Mellitus. Glucose Poct Glucometerson 0 06-03-2024 Glucose [Mass/Vol] 98 mg/dL Normal [facility] Comment on above: Result Comment: Peck om Glucose Reference Range is dependent on time and content of last meal. Glucose of more than 200 mg/dL in a nonstressed, ambulatory subject supports the diagnosis of Diabetes Mellitus. PERFORMED BY: [facility] [address] [place] [address] PATHOLOGIST CANCELLATION CLERK MARIA A WINTER M.D. Performed By: #### G LUNICOLE #### Point of Care testing , IGP,APTIMA HPV,AGE GDLNon AGE GDLN ACOG TESTING Note . [facility] Comment on above: TESTS RESULT FLAG UN ITS REF RANGE LAB Clinician Provided Cytology Information Source.............Vagina No. of containers..01 ThinPrep Vial Age Algo ACOG Christie... 30-65 01 FLAG LEGEND: L-Low Normal,H-High Normal,LL-Alert Low,HH-Alert High <-Panic Low,>-Panic High,A-Abnormal,AA-Critical Abnormal Performed at: 01 = [facility] [address] Apolonia Mayorga MD, HPV APTIMA Negative Negative [facility] Comment on above: This nucleic acid am plification test detects fourteen high- risk HPV types (16,18,31,33,35,39,45,51,52,56,58,59,66,68) without differentiation. Performed at: = - [facility] [id number] Pulper Operator: Apolonia Mayorga MD, Phone: [phone] Performed at: [facility] [address] [place] [id number] Pulper Operator: Acosta Box MD, Phone: [phone] IGP, APTIMA HPV, RFX 16/18,45 Note . [facility] Comment on above: TESTS RESULT FLAG UN ITS REF RANGE LAB DIAGNOSIS: 02 NEGATIVE FOR INTRAEPITHELIAL LESION OR MALIGNANCY. Specimen adequacy: 02 Satisfactory for evaluation. Performed by: Karina Goodwin, Medical Records Field Technician ([facility]) . 02 Note: Note 03 The Pap [...] <-Panic Low,>-Panic High,A-Abnormal,AA-Critical Abnormal Performed at: 02 [facility] [address] [place] [id number] Acosta Box MD, 03 WB [facility] [address] [address] Apolonia Mayorga MD, SPATULA-ALONE V[facility] PET tumor subq tx strat sb-m ton 06-03-2024 PET tumor subq tx strat sb-mt [facility] [place] [address] Nuclear Medicine Report Signed Patient: Ike Flannery MR#: [id number] : 1970 Acct:[id number] Age/Sex: 53 / F ADM Date: 06/03/24 Loc: Room: Type: [facility] Attending Dr: Aarti Hope MD Copies to: MD Fortino Mistry MD Ordering Provider: Aarti Hope MD Date of Service: 06/03/24 PET/PET tumor subq tx strat sb-mt: Breast CA PET/CT FUSION IMAGING CLINICAL INFORMATION: Breast cancer, restaging, liver lesion, indeterminate. COMPARISON : PET/CT 04/17/2023 TECHNIQUE: Noncontrasted CT scan from the base of the skull to the upper thigh followed by PET imaging. Multiplanar PET/CT fusion images. The blood sugar is 98mg/dL. The F-18 FDG amount is 12.2mCi. FINDINGS: Neck: No FDG avid hypermetabolic disease. Chest:No FDG avid hypermetabolic disease. Abdomen/pelvis: Focal increased FDG activity right posterior liver, 6.2 SUV. Soft tissue/bones: Abnormal FDG activity left anterior chest wall along the site of prior mastectomy, this measures up to 9 SUV laterally and 5.3 SUV along the medial margin.. Possible injection sites with with increased uptake right buttock 2.[address] findings: Bilateral mastectomy. Right-sided implant. Ill-defined nonmass-like soft tissue thickening left anterior chest wall corresponding to site of hypermetabolic disease Right posterior liver lesion 2.5 x 1.7 cm in size. PET/PET tumor subq tx strat sb-mt IMPRESSION: Increased uptake within the right posterior hepatic lobe lesion 6.2 SUV. Findings worrisome for possible metastases. Consider hepatic MRI or consider percutaneous sampling. Nonmasslike areas of increased metabolic uptake, up to 9 SUV, identified left chest wall possibly related to recent surgery or infection. Clinical correlation and clinical follow-up is strongly recommended Impression dictated by: Fortino Tate M.D.06/03/2024 12:40 PM Dictation Location: [place] [address] Transcribed By: [facility] 06/03/24 1240 Dictated By: Fortino Tate MD 06/03/24 1216 Signed By: 06/03/24 1240 Normal [facility] Documentationon 06-01-2024 Documentation [id number] Angela Flannerysd Eason 1970 F Date Provider Department Center 06/01/2024 1045-AVI TOBAR [facility] INF Anthony Heal Family History Adopted: Yes Problem Relation Age of Onset Heart attack Father Family Status - Relation Status Age at Father Normal [facility] Orders Onlyon 06-01-2024 Orders Only [id number] Angela Flannerysd Eason 1970 [facility] Provider Department Center 06/01/2024 258-JOSSY MOODY [facility] CARE Anthony Heal Family History Adopted: Yes Problem Relation Age of Onset Heart attack Father Family Status - Relation Status Age at Father Normal [facility] Urinalysis macro (dipstick) panel (U)on 06-01-2024 Bilirubin, UA Negative Negative - 4(70) +++ mg/dL [facility] Blood, UA Negative Negative - 50 Jerod/mcL [facility] Clarity, UA Clear [facility] Color, UA Yellow [facility] Glucose, UA Negative Negative - 1999(110) ++++ mg/dL [facility] Interpretation and review of laboratory results Abnormal [facility] Ketones, UA Positive Negative - 160(16) ++++ mg/dL [facility] Comment on above: trace Leukocytes, UA Negative Negative - 500+++ Sofya/mcL [facility] Nitrite, UA Negative Negative - Positive [facility] pH, UA 6.5 5 - 9 [facility] Health[facility] Protein, UA Negative Negative - 1999(20) ++++ mg/dL [facility] Spec Grav, UA 1.015 1 - 1.03 [facility] Urobilinogen, UA 0.2 0.2 - 12 mg/dL [facility] Office Visiton 05-31-2024 Follow-up visit [id number] Ike Flannery Yumi 1970 [facility] Provider Department Center 05/31/2024 [id number] ATWOOD [facility] ALGY Anthony Powell Family History Adopted: Yes Problem Relation Age of Onset Heart attack Father Family Status - Relation Status Age at Father Level of Service:97790 MD OFFICE/OUTPATIENT NEW MODERATE MDM 45 MINUTES Reason for Visit and Comments: New Patient [632] - Tetracycline therapy Doxy testing Normal [facility] Orders Onlyon 05-30-2024 Orders Only [id number] Ike Flannery 1970 [facility] Provider Department Center 05/30/2024 [id number], HISTORICAL [facility] RHEUM Anthony Heal Family History Adopted: Yes Problem Relation Age of Onset Heart attack Father Family Status - Relation Status Age at Father Normal [facility] 30on 05-27-2024 30 The patient is Moderately Stable - Low risk of patient condition declining or worsening The patient's goals for the shift include Comfort, rest The clinical goals for the shift include VSS,rest Pain - Adult Add All Verbalizes/displays adequate comfort level or baseline comfort level Add Today at 0102 - Progressing by Ravinder Escobar RN Add Flowsheets Taken today at 0102 Verbalizes/displays adequate comfort level or baseline comfort level Encourage patient to monitor pain and request assistance;Administer analgesics based on type and severity of pain and evaluate response;Assess pain using appropriate pain scale;Implement non-pharmacological measures as appropriate and evaluate response Safety - Adult Add All Free from fall injury Add Today at 0102 - Progressing by Ravinder Escobar RN Add Flowsheets Taken today at 0102 Free from fall injury Assess patient frequently for physical needs Discharge Planning Add All Discharge to home or other facility with appropriate resources Add Today at 0102 - Progressing by Ravinder Escobar RN Add Flowsheets Taken today at 0102 Discharge to home or other facility with appropriate resources Identify barriers to discharge with patient and caregiver;Identify discharge learning needs (meds, wound care, etc);Arrange for needed discharge resources and transportation as appropriate Chronic Conditions and Co-morbidities Add All Patient's chronic conditions and co-morbidity symptoms are monitored and maintained or improved Add Today at 0102 - Progressing by Ravinder Escobar RN Add Flowsheets Taken today at 0102 Care Plan - Patient's Chronic Conditions and Co-Morbidity Symptoms are Monitored and Maintained or Improved Monitor and assess patient's chronic conditions and comorbid symptoms for stability, deterioration, or improvement;Collaborat e with multidisciplinary team to address chronic and comorbid conditions and prevent exacerbation or deterioration Normal [facility] CBC WITH AUTO DIFFERENTIALon 05-27-2024 Erythrocyte distribution width (RBC) [Ratio] 19.1 % High 11.5-15.0 [facility] Comment on above: Performed By: #### L [id number] #### [facility] (Great Technology[employer]) [address] [place] [address] ERYTHROCYTE MEAN CORPUSCULAR HEMOGLOBIN CONCENTRATION (G/DL) BY AUTOMATED 32.9 g/dL Normal 32.0-35.0 [facility] Comment on above: Performed By: #### L [id number] #### [facility] (BEOMG) [address] [place] [address] Hematocrit (Bld) [Volume fraction] 22.5 % Low 36.0-45.0 [facility] Comment on above: Performed By: #### L [id number] #### [facility] ([facility] [address] [place] [address] Hemoglobin (Bld) [Mass/Vol] 7.4 g/dL Low 12.0-15.0 [facility] Comment on above: Performed By: #### L [id number] #### [facility] ([facility] [address] [place] [address] IMMATURE PLATELET FRACTION % 2.7 % Normal 0.8-6.3 [facility] Comment on above: Performed By: #### L [id number] #### [facility] ([facility]) [address] [place] [address] MCH (RBC) [Entitic mass] 29.7 pg Normal 27.0-33.0 [facility] Comment on above: Performed By: #### L [id number] #### [facility] ([facility]) [address] [place] [address] MCV (RBC) [Entitic vol] 90.4 fL Normal 82.0-98.0 [facility] Comment on above: Performed By: #### L [id number] #### [facility] ([facility]) [address] [place] [address] NRBC (PER 100 WBCS) BY AUTOMATED COUNT 0.0 % Normal 0 [facility] Comment on above: Performed By: #### L [id number] #### [facility] ([facility]) [address] [place] [address] PLATELETS (10*3/UL) IN BLOOD AUTOMATED COUNT 126 10*3/uL Low 150-400 [facility] Comment on above: Performed By: #### L [id number] #### [facility] ([facility] [address] [place] [address] RBC (Bld) [#/Vol] 2.49 10*6/uL Low 3.80-5.00 [facility] Comment on above: Performed By: #### L [id number] #### [facility] ([facility]) [address] [place] [address] WBC (Bld) [#/Vol] 2.53 10*3/uL Low 4.00-10.60 [facility] Comment on above: Performed By: #### L [id number] #### [facility] ([facility]) [address] [place] [address] COMPREHENSIVE METABOLIC PANE [facility] 05-27-2024 Albumin [Mass/Vol] 3.1 g/dL Low 3.5-5.7 [facility] Comment on above: Performed By: #### L [id number] #### [facility] ([facility]) [address] [place] [address] ALP [Catalytic activity/Vol] 125 U/L High 34-104 [facility] Comment on above: Performed By: #### L [id number] #### [facility] ([facility]) [address] [place] [address] ALT [Catalytic activity/Vol] 66 U/L High 7-52 [facility] Comment on above: Performed By: #### L [id number] #### [facility] ([facility]) [address] [place] [address] Anion gap [Moles/Vol] 6 mmol/L Low 7-20 [facility] Comment on above: Performed By: #### L [id number] #### [facility] ([facility]) [address] [place] [address] AST [Catalytic activity/Vol] 53 U/L High 13-39 [facility] Comment on above: Performed By: #### L [id number] #### [facility] ([facility]) [address] [place] [address] Bilirubin [Mass/Vol] 0.5 mg/dL Normal 0.3-1.0 [facility] Comment on above: Performed By: #### L [id number] #### [facility] ([facility] [address] [place] [address] Calcium [Mass/Vol] 8.4 mg/dL Low 8.6-10.3 [facility] Comment on above: Performed By: #### L [id number] #### [facility] ([facility] [address] [place] [address] Chloride [Moles/Vol] 110 mmol/L High 98-107 [facility] Comment on above: Performed By: #### L [id number] #### [facility] ([facility]) [address] [place] [address] CO2 [Moles/Vol] 30 mmol/L Normal 21-31 [facility] Comment on above: Performed By: #### L [id number] #### [facility] ([facility]) [address] [place] [address] Creatinine [Mass/Vol] 0.50 mg/dL Low 0.60-1.20 [facility] Comment on above: Performed By: #### L [id number] #### [facility] ([facility]) [address] [place] [address] GLOMERULAR FILTRATION RATE ML/MIN/1.73 SQ M.PREDICTED 112.1 mL/min/1.73m*2 Normal >60.0 [facility] Comment on above: Result Comment: The [facility]???s estimated glomerular filtration rate (eGFR) will no longer include consideration of race in its calculation. The National Kidney Foundation???s eGFR Task Force developed new recommendations for the estimation of the glomerular filtration rate in the [place] They recommend immediate implementation of the new equation refit without the race variable in all laboratories because the calculation does not include race. In addition to not including race in the calculation and reporting, it included diversity in its development, and has acceptable performance characteristics and potential consequences that do not disproportionately affect any one group of individuals. Performed By: #### L [id number] #### [facility] ([facility]) [address] [place] [address] Glucose [Mass/Vol] 83 mg/dL Normal 70-100 [facility] Comment on above: Performed By: #### L [id number] #### [facility] ([facility]) [address] [place] [address] Potassium [Moles/Vol] 3.3 mmol/L Low 3.5-5.1 [facility] Comment on above: Performed By: #### L [id number] #### [facility] ([facility]) [address] [place] [address] Protein [Mass/Vol] 5.2 g/dL Low 6.0-8.3 [facility] Comment on above: Performed By: #### L [id number] #### [facility] ([facility]) [address] [place] [address] Sodium [Moles/Vol] 143 mmol/L Normal 136-145 [facility] Comment on above: Performed By: #### L [id number] #### [facility] ([facility]) [address] [place] [address] Urea nitrogen [Mass/Vol] 5 mg/dL Low 7-25 [facility] Comment on above: Performed By: #### L [id number] #### [facility] ([facility]) [address] [place] [address] UREA NITROGEN/CREATININE (MASS RATIO) IN SER/PLAS 10.0 [facility] Comment on above: Performed By: #### L [id number] #### [facility] ([facility]) [address] [place] [address] Documentationon 05-27-2024 Documentation [id number] Ike Flannery 1970 F Date Provider Department Center 05/27/2024 [id number] [facility] Spe Pha Comprehensiv Family History Adopted: Yes Problem Relation Age of Onset Heart attack Father Family Status - Relation Status Age at Father Reason for Visit and Comments: Specialty Pharmacy note. Nuzyra [Other] Normal [facility] MANUAL DIFFERENTIALon 2024 BASOPHILS (10*3/UL) IN BLOOD BY CALCULATION 0.00 10*3/uL Normal 0.00-0.20 [facility] Comment on above: Performed By: #### L [id number] ####[facility] ([facility])[address] [place] [address] BASOPHILS/100 LEUKOCYTES IN BLOOD BY AUTOMATED COUNT 0.0 % Normal 0.0-1.0 [facility] Comment on above: Performed By: #### L [id number] ####[facility] ([facility])[address] [place] [address] EOSINOPHILS (10*3/UL) IN BLOOD BY CALCULATION 0.10 10*3/uL Normal 0.00-0.50 [facility] Comment on above: Performed By: #### L [id number] ####[facility] ([facility])[address] [place] [address] EOSINOPHILS/100 LEUKOCYTES IN BLOOD BY AUTOMATED COUNT 4.0 % Normal 0.0-6.0 [facility] Comment on above: Performed By: #### L [id number] ####[facility] ([facility])[address] [place] [address] IMMATURE GRANULOCYTES (10*3/UL) IN BLOOD BY CALCULATION 0.01 10*3/uL Normal 0.00-0.20 [facility] Comment on above: Performed By: #### L [id number] ####[facility] ([facility])[address] [place] [address] IMMATURE GRANULOCYTES/100 LEUKOCYTES IN BLOOD BY AUTOMATED COUNT 0.4 % Normal 0.0-1.0 [facility] Comment on above: Performed By: #### L [id number] ####[facility] ([facility])[address] [place] [address] LYMPHOCYTES (10*3/UL) IN BLOOD BY CALCULATION 0.83 10*3/uL Low 1.20-4.00 [facility] Comment on above: Performed By: #### L [id number] ####[facility] ([facility] [place] [address] LYMPHOCYTES/100 LEUKOCYTES IN BLOOD BY AUTOMATED COUNT 32.7 % Normal 20.0-45.0 [facility] Comment on above: Performed By: #### L [id number] ####[facility] ([facility])[address] [place] [address] MONOCYTES (10*3/UL) IN BLOOD BY CALCUATION 0.20 10*3/uL Normal 0.10-1.00 [facility] Comment on above: Performed By: #### L [id number] ####[facility] ([facility])[address] [place] [address] MONOCYTES/100 LEUKOCYTES IN BLOOD BY AUTOMATED COUNT 8.0 % Normal 5.0-12.0 [facility] Comment on above: Performed By: #### L [id number] ####[facility] ([facility])[address] [place] [address] NEUTROPHILS (10*3/UL) IN BLOOD BY CALCULATION 1.4 10*3/uL Low 1.6-7.6 [facility] Comment on above: Performed By: #### L [id number] ####[facility] ([facility])[address] [place] [address] NEUTROPHILS/100 LEUKOCYTES IN BLOOD BY AUTOMATED COUNT 55.3 % Normal 40.0-72.0 [facility] Comment on above: Performed By: #### L [id number] ####[facility] ([facility])[address] [place] [address] NUCLEATED RED BLOOD CELLS IN BLOOD BY LIGHT MICROSCOPY Present Normal [facility] Comment on above: Performed By: #### L [id number] ####[facility] ([facility] [place] [address] PLASMA CELLS/100 LEUKOCYTES IN BLOOD 0 % Normal 0 [facility] Comment on above: Performed By: #### L [id number] ####[facility] ([facility])[address] [place] [address] PLATELETS GIANT PRESENCE IN BLOOD BY LIGHT MICROSCOPY Present Normal [facility] Comment on above: Performed By: #### L [id number] ####[facility] ([facility] [place] [address] VARIANT LYMPHOCYTES (10*3/UL) IN BLOOD BY CALCULATION 0.00 10*3/uL Normal 0.00 [facility] Comment on above: Performed By: #### L [id number] ####[facility] ([facility])[address] [place] [address] VARIANT LYMPHOCYTES/100 LEUKOCYTES IN BLOOD CELLAVISION 0.0 % Normal 0.0-0.0 [facility] Comment on above: Performed By: #### L [id number] ####[facility] ([facility])[address] [facility] [place] [address] Orders Onlyon 05-27-2024 Orders Only [id number] Ike Flannery 1970 F Date Provider Department Center 05/27/2024 [id number] LIBIA Powell Family History Adopted: Yes Problem Relation Age of Onset Heart attack Father Family Status - Relation Status Age at Father Normal [facility] 30on 05-26-2024 30 The patient is Moderately Unstable - Medium risk of patient condition declining or worsening The patient's goals for the shift include comfort, rest The clinical goals for the shift include vss, rest Over the shift, the patient did not make progress toward the following goals. Barriers to progression include continued infection and co-morbidities. Recommendations to address these barriers include monitoring and treatment as appropriate; follow up with wound care outpatient. Normal [facility] BASIC METABOLIC PANELon 05-01 Anion gap [Moles/Vol] 7 mmol/L Normal 7-20 [facility] Comment on above: Performed By: #### L [id number] #### [facility] ([facility]) [address] [place] [address] Calcium [Mass/Vol] 8.1 mg/dL Low 8.6-10.3 [facility] Comment on above: Performed By: #### L [id number] #### [facility] ([facility]) [address] [place] [address] Chloride [Moles/Vol] 110 mmol/L High 98-107 [facility] Comment on above: Performed By: #### L [id number] #### [facility] ([facility]) [address] [place] [address] CO2 [Moles/Vol] 28 mmol/L Normal 21-31 [facility] Comment on above: Performed By: #### L [id number] #### [facility] ([facility]) [address] [place] [address] Creatinine [Mass/Vol] 0.56 mg/dL Low 0.60-1.20 [facility] Comment on above: Performed By: #### L [id number] #### [facility] ([facility]) [address] [place] [address] GLOMERULAR FILTRATION RATE ML/MIN/1.73 SQ M.PREDICTED 109.1 mL/min/1.73m*2 Normal >60.0 [facility] Comment on above: Result Comment: The [facility]???s estimated glomerular filtration rate (eGFR) will no longer include consideration of race in its calculation. The National Kidney Foundation???s eGFR Task Force developed new recommendations for the estimation of the glomerular filtration rate in the [place] They recommend immediate implementation of the new equation refit without the race variable in all laboratories because the calculation does not include race. In addition to not including race in the calculation and reporting, it included diversity in its development, and has acceptable performance characteristics and potential consequences that do not disproportionately affect any one group of individuals. Performed By: #### L [id number] #### [facility] ([facility]) [address] [place] [address] Glucose [Mass/Vol] 79 mg/dL Normal 70-100 [facility] Comment on above: Performed By: #### L [id number] #### [facility] ([facility]) [address] [place] [address] Potassium [Moles/Vol] 3.4 mmol/L Low 3.5-5.1 [facility] Comment on above: Performed By: #### L [id number] #### [facility] ([facility]) [address] [place] [address] Sodium [Moles/Vol] 142 mmol/L Normal 136-145 [facility] Comment on above: Performed By: #### L [id number] #### [facility] ([facility]) [address] [place] [address] Urea nitrogen [Mass/Vol] 7 mg/dL Normal 7-25 [facility] Comment on above: Performed By: #### L [id number] #### [facility] ([facility] [address] [place] [address] UREA NITROGEN/CREATININE (MASS RATIO) IN SER/PLAS 12.5 Normal [facility] Comment on above: Performed By: #### L [id number] #### [facility] ([facility] [address] [place] [address] CBCon 05-26-2024 Erythrocyte distribution width (RBC) [Ratio] 18.9 % High 11.5-15.0 [facility] Comment on above: Performed By: #### L [id number] #### [facility] ([facility]) [address] [place] [address] ERYTHROCYTE MEAN CORPUSCULAR HEMOGLOBIN CONCENTRATION (G/DL) BY AUTOMATED 33.6 g/dL Normal 32.0-35.0 [facility] Comment on above: Performed By: #### L [id number] #### [facility] ([facility]) [address] [place] [address] Hematocrit (Bld) [Volume fraction] 23.2 % Low 36.0-45.0 [facility] Comment on above: Performed By: #### L [id number] #### [facility] ([facility]) [address] [place] [address] Hemoglobin (Bld) [Mass/Vol] 7.8 g/dL Low 12.0-15.0 [facility] Comment on above: Performed By: #### L [id number] #### [facility] ([facility]) [address] [place] [address] MCH (RBC) [Entitic mass] 29.9 pg Normal 27.0-33.0 [facility] Comment on above: Performed By: #### L [id number] #### [facility] ([facility]) [address] [place] [address] MCV (RBC) [Entitic vol] 88.9 fL Normal 82.0-98.0 [facility] Comment on above: Performed By: #### L [id number] #### [facility] ([facility]) [address] [place] [address] PLATELETS (10*3/UL) IN BLOOD AUTOMATED COUNT 114 10*3/uL Low 150-400 [facility] Comment on above: Performed By: #### L [id number] #### [facility] ([facility]) [address] [place] [address] RBC (Bld) [#/Vol] 2.61 10*6/uL Low 3.80-5.00 [facility] Comment on above: Performed By: #### L [id number] #### [facility] ([facility]) [address] [place] [address] WBC (Bld) [#/Vol] 2.08 10*3/uL Low 4.00-10.60 [facility] Comment on above: Performed By: #### L [id number] #### [facility] ([facility]) [address] [place] [address] 30on 05-25-2024 30 The patient is Moderately Stable - Low risk of patient condition declining or worsening The patient's goals for the shift include comfort and safety The clinical goals for the shift include VSS, pain control Problem: Pain - Adult Goal: Verbalizes/displays adequate comfort level or baseline comfort level Outcome: Progressing Flowsheets (Taken 05/25/2024 2341) Verbalizes/displays adequate comfort level or baseline comfort level: Encourage patient to monitor pain and request assistance Assess pain using appropriate pain scale Administer analgesics based on type and severity of pain and evaluate response Problem: Safety - Adult Goal: Free from fall injury Outcome: Progressing Flowsheets (Taken 05/25/20242340) Free from fall injury: Assess patient frequently for physical needs [place] fall precautions as indicated by assessment Problem: Discharge Planning Goal: Discharge to home or other facility with appropriate resources Outcome: Progressing Flowsheets (Taken 05/25/20242340) Discharge to home or other facility with appropriate resources: Identify barriers to discharge with patient and caregiver Arrange for needed discharge resources and transportation as appropriate Identify discharge learning needs (meds, wound care, etc) Problem: Chronic Conditions and Co-morbidities Goal: Patient's chronic conditions and co-morbidity symptoms are monitored and maintained or improved Outcome: Progressing Flowsheets (Taken 05/25/20242340) Care Plan - Patient's Chronic Conditions and Co-Morbidity Symptoms are Monitored and Maintained or Improved: Monitor and assess patient's chronic conditions and comorbid symptoms for stability, deterioration, or improvement Normal [facility] 30 The patient is Moderately Stable - Low risk of patient condition declining or worsening The patient's goals for the shift include comfort The clinical goals for the shift include stable vitals and pain management Over the shift, the patient did not make progress toward the following goals. Barriers to progression include . Recommendations to address these barriers include . Normal [facility] AMIKACIN LEVEL, RANDOMon AMIKACIN (UG/ML) IN SER/PLAS 0.9 ug/mL Normal 0.0-40.0 [facility] Comment on above: Result Comment: Test Performed by [facility] [address] [place] [address] - Released 05/26/2024 05:17 Performed By: #### L [id number] #### [facility] [address] [place] [address] BASIC METABOLIC PANELon 03-2 Anion gap [Moles/Vol] 11 mmol/L Normal 7-20 [facility] Comment on above: Performed By: #### L [id number] #### [facility] ([facility]) [address] [place] [address] Calcium [Mass/Vol] 8.0 mg/dL Low 8.6-10.3 [facility] Comment on above: Performed By: #### L [id number] #### [facility] ([facility]) [address] [place] [address] Chloride [Moles/Vol] 105 mmol/L Normal 98-107 [facility] Comment on above: Performed By: #### L [id number] #### [facility] ([facility]) [address] [place] [address] CO2 [Moles/Vol] 26 mmol/L Normal 21-31 [facility] Comment on above: Performed By: #### L [id number] #### [facility] ([facility]) [address] [place] [address] Creatinine [Mass/Vol] 0.69 mg/dL Normal 0.60-1.20 [facility] Comment on above: Performed By: #### L [id number] #### [facility] ([facility]) [address] [place] [address] GLOMERULAR FILTRATION RATE ML/MIN/1.73 SQ M.PREDICTED 103.7 mL/min/1.73m*2 Normal >60.0 [facility] Comment on above: Result Comment: The [facility]???s estimated glomerular filtration rate (eGFR) will no longer include consideration of race in its calculation. The National Kidney Foundation???s eGFR Task Force developed new recommendations for the estimation of the glomerular filtration rate in the [place] They recommend immediate implementation of the new equation refit without the race variable in all laboratories because the calculation does not include race. In addition to not including race in the calculation and reporting, it included diversity in its development, and has acceptable performance characteristics and potential consequences that do not disproportionately affect any one group of individuals. Performed By: #### L [id number] #### [facility] ([facility]) [address] [place] [address] Glucose [Mass/Vol] 79 mg/dL Normal 70-100 [facility] Comment on above: Performed By: #### L [id number] #### [facility] ([facility]) [address] [place] [address] Potassium [Moles/Vol] 3.5 mmol/L Normal 3.5-5.1 [facility] Comment on above: Performed By: #### L [id number] #### [facility] [address] [place] [address] Sodium [Moles/Vol] 138 mmol/L Normal 136-145 [facility] Comment on above: Performed By: #### L [id number] #### [facility] [address] [place] [address] Urea nitrogen [Mass/Vol] 8 mg/dL Normal 7-25 [facility] Comment on above: Performed By: #### L [id number] #### [facility] [address] [place] [address] UREA NITROGEN/CREATININE (MASS RATIO) IN SER/PLAS 11.6 Normal [facility] Comment on above: Performed By: #### L [id number] #### [facility] [address] [place] [address] CBCon 05-25-2024 Erythrocyte distribution width (RBC) [Ratio] 19.3 % High 11.5-15.0 [facility] Comment on above: Performed By: #### L [id number] #### [facility] ([facility]) [address] [place] [address] ERYTHROCYTE MEAN CORPUSCULAR HEMOGLOBIN CONCENTRATION (G/DL) BY AUTOMATED 32.9 g/dL Normal 32.0-35.0 [facility] Comment on above: Performed By: #### L [id number] #### [facility] [address] [place] [address] Hematocrit (Bld) [Volume fraction] 22.8 % Low 36.0-45.0 [facility] Comment on above: Performed By: #### L [id number] #### [facility] ([facility]) [address] [place] [address] Hemoglobin (Bld) [Mass/Vol] 7.5 g/dL Low 12.0-15.0 [facility] Comment on above: Performed By: #### L [id number] #### [facility] ([facility]) [address] [place] [address] MCH (RBC) [Entitic mass] 30.1 pg Normal 27.0-33.0 [facility] Comment on above: Performed By: #### L [id number] #### [facility] ([facility]) [address] [place] [address] MCV (RBC) [Entitic vol] 91.6 fL Normal 82.0-98.0 [facility] Comment on above: Performed By: #### L [id number] #### [facility] ([facility]) [address] [place] [address] PLATELETS (10*3/UL) IN BLOOD AUTOMATED COUNT 151 10*3/uL Normal 150-400 [facility] Comment on above: Performed By: #### L [id number] #### [facility] ([facility]) [address] [place] [address] RBC (Bld) [#/Vol] 2.49 10*6/uL Low 3.80-5.00 [facility] Comment on above: Performed By: #### L [id number] #### [facility] ([facility]) [address] [place] [address] WBC (Bld) [#/Vol] 2.68 10*3/uL Low 4.00-10.60 [facility] Comment on above: Performed By: #### L [id number] #### [facility] ([facility]) [address] [place] [address] 30on 05-24-2024 30 The patient is Moderately Stable - Low risk of patient condition declining or worsening The patient's goals for the shift include comfort and safety The clinical goals for the shift include stable vitals and labs, pain management Normal [facility] 30 The patient is Moderately Stable - Low risk of patient condition declining or worsening The patient's goals for the shift include comfort and safety The clinical goals for the shift include stable vitals and labs, pain management Problem: Pain - Adult Goal: Verbalizes/displays adequate comfort level or baseline comfort level Outcome: Not Progressing Problem: Safety - Adult Goal: Free from fall injury Outcome: Not Progressing Problem: Discharge Planning Goal: Discharge to home or other facility with appropriate resources Outcome: Not Progressing Problem: Chronic Conditions and Co-morbidities Goal: Patient's chronic conditions and co-morbidity symptoms are monitored and maintained or improved Outcome: Not Progressing Normal [facility] AMIKACIN LEVEL, PEAKon 05-24 AMIKACIN (UG/ML) IN SER/PLAS - PEAK 26.3 ug/mL High 20.0-25.0 [facility] Comment on above: Order Comment: Pleas e obtain 60 minutes after end of amikacin infusion Result Comment: Test Performed by [facility] [address] [place] [address] - Released 05/24/2024 08:06 Performed By: #### L [id number] #### [facility] [address] [place] [address] BASIC METABOLIC PANELon 05-01 Anion gap [Moles/Vol] 9 mmol/L Normal 7-20 [facility] Comment on above: Performed By: #### L [id number] #### [facility] (BEAK[facility]) [address] [place] [address] Calcium [Mass/Vol] 8.1 mg/dL Low 8.6-10.3 [facility] Comment on above: Performed By: #### L [id number] #### [facility] ([facility]) [address] [place] [address] Chloride [Moles/Vol] 106 mmol/L Normal 98-107 [facility] Comment on above: Performed By: #### L [id number] #### [facility] ([facility]) [address] [place] [address] CO2 [Moles/Vol] 26 mmol/L Normal 21-31 [facility] Comment on above: Performed By: #### L [id number] #### [facility] ([facility]) [address] [place] [address] Creatinine [Mass/Vol] 0.60 mg/dL Normal 0.60-1.20 [facility] Comment on above: Performed By: #### L [id number] #### [facility] ([facility]) [address] [place] [address] GLOMERULAR FILTRATION RATE ML/MIN/1.73 SQ M.PREDICTED 107.3 mL/min/1.73m*2 Normal >60.0 [facility] Comment on above: Result Comment: The [facility]???s estimated glomerular filtration rate (eGFR) will no longer include consideration of race in its calculation. The National Kidney Foundation???s eGFR Task Force developed new recommendations for the estimation of the glomerular filtration rate in the [place] They recommend immediate implementation of the new equation refit without the race variable in all laboratories because the calculation does not include race. In addition to not including race in the calculation and reporting, it included diversity in its development, and has acceptable performance characteristics and potential consequences that do not disproportionately affect any one group of individuals. Performed By: #### L [id number] #### [facility] ([facility]) [address] [place] [address] Glucose [Mass/Vol] 92 mg/dL Normal 70-100 [facility] Comment on above: Performed By: #### L [id number] #### [facility] ([facility]) [address] [place] [address] Potassium [Moles/Vol] 3.0 mmol/L Low 3.5-5.1 [facility] Comment on above: Performed By: #### L [id number] #### [facility] ([facility]) [address] [place] [address] Sodium [Moles/Vol] 138 mmol/L Normal 136-145 [facility] Comment on above: Performed By: #### L [id number] #### [facility] ([facility]) [address] [place] [address] Urea nitrogen [Mass/Vol] 9 mg/dL Normal 7-25 [facility] Comment on above: Performed By: #### L [id number] #### [facility] [address] [place] [address] UREA NITROGEN/CREATININE (MASS RATIO) IN SER/PLAS 15.0 Normal [facility] Comment on above: Performed By: #### L [id number] #### [facility] [address] [place] [address] BLOOD CULTUREon 05-24-2024 Bacteria identified Cx Nom (Bld) No growth at 5 days [facility] Comment on above: Order Comment: From a different site than #1. Performed By: #### L [id number] ####[facility] ([facility])[address] [place] [address] Bacteria identified Cx Nom (Bld) No growth at 5 days [facility] Comment on above: Performed By: #### L [id number] ####[facility] ([facility])[address] [place] [address] CBC WITH AUTO DIFFERENTIALon 05-24-2024 Erythrocyte distribution width (RBC) [Ratio] 19.2 % High 11.5-15.0 [facility] Comment on above: Performed By: #### L [id number] #### [facility] ([facility]) [address] [place] [address] ERYTHROCYTE MEAN CORPUSCULAR HEMOGLOBIN CONCENTRATION (G/DL) BY AUTOMATED 32.5 g/dL Normal 32.0-35.0 [facility] Comment on above: Performed By: #### L [id number] #### [facility] ([facility]) [address] [place] [address] Hematocrit (Bld) [Volume fraction] 25.5 % Low 36.0-45.0 [facility] Comment on above: Performed By: #### L [id number] #### [facility] [address] [place] [address] Hemoglobin (Bld) [Mass/Vol] 8.3 g/dL Low 12.0-15.0 [facility] Comment on above: Performed By: #### L [id number] #### [facility] ([facility]) [address] [place] [address] MCH (RBC) [Entitic mass] 30.1 pg Normal 27.0-33.0 [facility] Comment on above: Performed By: #### L [id number] #### [facility] ([facility]) [address] [place] [address] MCV (RBC) [Entitic vol] 92.4 fL Normal 82.0-98.0 [facility] Comment on above: Performed By: #### L [id number] #### [facility] ([facility]) [address] [place] [address] NRBC (PER 100 WBCS) BY AUTOMATED COUNT 0.0 % Normal 0 [facility] Comment on above: Performed By: #### L [id number] #### [facility] ([facility]) [address] [place] [address] PLATELETS (10*3/UL) IN BLOOD AUTOMATED COUNT 193 10*3/uL Normal 150-400 [facility] Comment on above: Performed By: #### L [id number] #### [facility] ([facility]) [address] [place] [address] RBC (Bld) [#/Vol] 2.76 10*6/uL Low 3.80-5.00 [facility] Comment on above: Performed By: #### L [id number] #### [facility] ([facility]) [address] [place] [address] WBC (Bld) [#/Vol] 2.10 10*3/uL Low 4.00-10.60 [facility] Comment on above: Performed By: #### L [id number] #### [facility] ([facility]) [address] [place] [address] CONSULTon 05-24-2024 CONSULT Infectious Diseases - Initial Consult Note - Patient name: Ike Flannery Patient Today's Date and Time: 05/24/2024, 8:47 AM Admission Date: 05/23/2024 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 Left mastectomy for prophylaxis 100.8 in the ED but currently afebrile Current antibiotic is amikacin Wound has no erythema or drainage Recommendations: Start home antibiotics: imipenem, clofazamine, ceftaroline; continue amikacin We are increasing the imipenem to Q8 hours due to hazy spot in the right lower lung on most recent chest xray Wound care for left chest wall Subjective Reason for consultation / Chief complaint: fever Referring Provider: Ada Jacques MD History of Present Illness Ike Flannery is a 53 y.o.-year-old female who was initially admitted on 05/23/2024. 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 She has had two debridements of the abscess earlier this month. The wound is currently open and packed. [facility] was going to get a wound vac for her this week. Patient is currently seeing infectious diseases and undergoing antibiotic treatment. Antibiotics she has been receiving for her infection: amikacin, imipenem, clofazamine, ceftaroline She came to the ER with reports of a fever of 100.9, horrible chills and a headache for the past three days. She does not report any changes to her wound on her chest. She denies any nausea or vomiting. Patient was seen in the ER at [facility] a couple days ago for fever but they sent her home due to negative workup. Past Medical History: Past Medical History: Diagnosis Date Cancer (CMS/HCC) Hypertension Past Surgical History: Past Surgical History: Procedure Laterality Date ANTERIOR CRUCIATE LIGAMENT REPAIR HYSTERECTOMY Medications: Scheduled: amikacin intermittent dosing, 1 each, Does not apply, RX Placeholder cyanocobalamin, 1,000 mcg, oral, Daily enoxaparin, 40 mg, subcutaneous, q24h RADHA ferrous sulfate, 325 mg, oral, BID with meals folic acid, 1 mg, oral, Daily gabapentin, 300 mg, oral, BID magnesium oxide, 400 mg, oral, Daily metoprolol succinate XL, 100 mg, oral, Daily pantoprazole, 40 mg, oral, Daily potassium chloride CR, 20 mEq, oral, BID with meals pyridoxine, 50 mg, oral, Daily Infusions: sodium chloride, 100 mL/hr, Last Rate: 100 mL/hr (05/23/24 4696) Social History: Social History Socioeconomic History Marital status: Spouse name: None Number of children: None Years of education: None Highest education level: None Occupational History None Tobacco Use Smoking status: Never Passive exposure: Never Smokeless tobacco: Never Substance and Sexual Activity Alcohol use: Not Currently Drug use: Never Sexual activity: None Other Topics Concern None Social History Narrative None Social Determinants of Health Financial Resource Strain: Low Risk (05/23/2024) Overall Financial Resource Strain (CARDIA) Difficulty of Paying Living Expenses: Not hard at all Food Insecurity: No Food Insecurity (05/23/2024) Hunger Vital Sign Worried About Running Out of Food in the Last Year: Never true Ran Out of Food in the Last Year: Not on file Transportation Needs: No Transportation Needs (05/23/2024) Transportation Lack of Transportation (Medical): No Lack of Transportation (Non-Medical): Not on file Physical Activity: Sufficiently Active (02/27/2022) Received from [employer] Exercise Vital Sign Days of Exercise per Week: 3 days Minutes of Exercise per Session: 60 min Stress: Stress Concern Present (02/27/2022) Received from [employer], [employer] [place] [employer] - Occupational Stress Questionnaire Feeling of Stress : To some extent Social Connections: Socially Integrated (02/27/2022) Received from [employer] Social Connection and Isolation Panel [NHANES] Frequency of Communication with Friends and Family: Twice a week Frequency of Social Gatherings with Friends and Family: Three times a week Attends [employer] Services: More than 4 times per year Active Member of Clubs or Organizations: Yes Attends Club or Organization Meetings: 1 to 4 times per year Marital Status: Intimate Partner Violence: Unknown (05/23/2024) Humiliation, Afraid, Rape, and Kick questionnaire Fear of Current or Ex-Partner: No Emotionally Abused: Not on file Physically Abused: Not on file Sexually Abused: Not on file Housing Stability: Low Risk (05/23/2024) Housing Stability Vital Sign Unable to Pay for Housing in the Last Year: No Number of Times Moved in (more content not included)... Normal [facility] HEPATITIS PANEL, ACUTEon HEPATITIS A VIRUS IGM AB PRESENCE IN SER/PLAS Non-Reactive Normal Nonreactive [facility] Comment on above: Performed By: #### L [id number] #### [facility] [address] [place] [address] HEPATITIS B VIRUS CORE AB (PRESENCE) IN SER/PLAS BY IMM Non-Reactive Normal Nonreactive [facility] Comment on above: Performed By: #### L [id number] #### [facility] ([facility]) [address] [place] [address] HEPATITIS B VIRUS SURFACE AG PRESENCE IN SERUM Non-Reactive [facility] Comment on above: Performed By: #### L [id number] #### [facility] ([facility]) [address] [place] [address] HEPATITIS C VIRUS AB PRESENCE IN SERUM Non-Reactive Normal Nonreactive [facility] Comment on above: Performed By: #### L [id number] #### [facility] ([facility]) [address] [place] [address] LACTIC ACID WITH 4 HOUR REFL EXon 05-24-2024 LACTATE (MMOL/L) IN SER/PLAS 0.7 mmol/L Normal 0.5-2.2 [facility] Comment on above: Performed By: #### L [id number] #### [facility] ([facility] [address] [place] [address] MAGNESIUMon 05-24-2024 Magnesium [Mass/Vol] 1.6 mg/dL Low 1.9-2.7 [facility] Comment on above: Performed By: #### L [id number] #### [facility] ([facility]) [address] [place] [address] MANUAL DIFFERENTIALon 2024 ANISOCYTOSIS PRESENCE IN BLOOD BY LIGHT MICROSCOPY Moderate Normal [facility] Comment on above: Performed By: #### L [id number] ####[facility] ([facility] [place] [address] BASOPHILS (10*3/UL) IN BLOOD BY CALCULATION 0.01 10*3/uL Normal 0.00-0.20 [facility] Comment on above: Performed By: #### L [id number] ####[facility] ([facility])[address] [place] [address] BASOPHILS/100 LEUKOCYTES IN BLOOD BY AUTOMATED COUNT 0.5 % Normal 0.0-1.0 [facility] Comment on above: Performed By: #### L [id number] ####[facility] ([facility])[address] [place] [address] EOSINOPHILS (10*3/UL) IN BLOOD BY CALCULATION 0.16 10*3/uL Normal 0.00-0.50 [facility] Comment on above: Performed By: #### L [id number] ####[facility] ([facility])[address] [place] [address] EOSINOPHILS/100 LEUKOCYTES IN BLOOD BY AUTOMATED COUNT 7.6 % High 0.0-6.0 [facility] Comment on above: Performed By: #### L [id number] ####[facility] ([facility])[address] [place] [address] IMMATURE GRANULOCYTES (10*3/UL) IN BLOOD BY CALCULATION 0.02 10*3/uL Normal 0.00-0.20 [facility] Comment on above: Performed By: #### L [id number] ####[facility] ([facility])[address] [place] [address] IMMATURE GRANULOCYTES/100 LEUKOCYTES IN BLOOD BY AUTOMATED COUNT 1.0 % Normal 0.0-1.0 [facility] Comment on above: Performed By: #### L [id number] ####[facility] ([facility])[address] [place] [address] LYMPHOCYTES (10*3/UL) IN BLOOD BY CALCULATION 0.51 10*3/uL Low 1.20-4.00 [facility] Comment on above: Performed By: #### L [id number] ####[facility] ([facility] [place] [address] LYMPHOCYTES/100 LEUKOCYTES IN BLOOD BY AUTOMATED COUNT 24.3 % Normal 20.0-45.0 [facility] Comment on above: Performed By: #### L [id number] ####[facility] ([facility])[address] [place] [address] MONOCYTES (10*3/UL) IN BLOOD BY CALCUATION 0.34 10*3/uL Normal 0.10-1.00 [facility] Comment on above: Performed By: #### L [id number] ####[facility] ([facility])[address] [place] [address] MONOCYTES/100 LEUKOCYTES IN BLOOD BY AUTOMATED COUNT 16.2 % High 5.0-12.0 [facility] Comment on above: Performed By: #### L [id number] ####[facility] ([facility])[address] [place] [address] NEUTROPHILS (10*3/UL) IN BLOOD BY CALCULATION 1.1 10*3/uL Low 1.6-7.6 [facility] Comment on above: Performed By: #### L [id number] ####[facility] ([facility])[address] [place] [address] NEUTROPHILS/100 LEUKOCYTES IN BLOOD BY AUTOMATED COUNT 50.4 % Normal 40.0-72.0 [facility] Comment on above: Performed By: #### L [id number] ####[facility] ([facility])[address] [place] [address] POIKILOCYTOSIS (PRESENCE) IN BLOOD BY LIGHT MICROSCOPY Slight Normal [facility] Comment on above: Performed By: #### L [id number] ####[facility] ([facility])[address] [place] [address] POLYCHROMASIA IN BLOOD BY LIGHT MICROSCOPY Slight Normal [facility] Comment on above: Performed By: #### L [id number] ####[facility] [place] [address] SEDIMENTATION RATEon 03-25-2 025 SEDIMENTATION RATE, ERYTHROCYTE 3 mm/hr Normal <30 [facility] Comment on above: Performed By: #### L [id number] #### [facility] ([facility]) [address] [place] [address] URINALYSIS WITH REFLEX CULTU REon 05-24-2024 BILIRUBIN, TOTAL PRESENCE IN URINE Negative Normal Negative [facility] Comment on above: Order Comment: Micro scopics not performed on urines with negative chemical reactions unless requested on original order. Performed By: #### L [id number] #### [facility] ([facility]) [address] [place] [address] Clarity (U) Clear Normal Clear [facility] Comment on above: Order Comment: Micro scopics not performed on urines with negative chemical reactions unless requested on original order. Performed By: #### L [id number] #### [facility] ([facility]) [address] [place] [address] Color (U) Colorless Normal Colorless, Yellow, Light-Yellow [facility] Comment on above: Order Comment: Micro scopics not performed on urines with negative chemical reactions unless requested on original order. Performed By: #### L [id number] #### [facility] ([facility]) [address] [place] [address] GLUCOSE (MG/DL) IN URINE Normal Normal Normal [facility] Comment on above: Order Comment: Micro scopics not performed on urines with negative chemical reactions unless requested on original order. Performed By: #### L [id number] #### [facility] ([facility]) [address] [place] [address] HEMOGLOBIN PRESENCE IN URINE Negative Normal Negative [facility] Comment on above: Order Comment: Micro scopics not performed on urines with negative chemical reactions unless requested on original order. Performed By: #### L [id number] #### [facility] ([facility]) [address] [place] [address] Ketones Ql (U) Negative Normal Negative [facility] Comment on above: Order Comment: Micro scopics not performed on urines with negative chemical reactions unless requested on original order. Performed By: #### L [id number] #### [facility] ([facility]) [address] [place] [address] LEUKOCYTE ESTERASE PRESENCE IN URINE BY TEST STRIP Negative Normal Negative [facility] Comment on above: Order Comment: Micro scopics not performed on urines with negative chemical reactions unless requested on original order. Performed By: #### L [id number] #### [facility] ([facility]) [address] [place] [address] NITRITE PRESENCE IN URINE Negative Normal Negative [facility] Comment on above: Order Comment: Micro scopics not performed on urines with negative chemical reactions unless requested on original order. Performed By: #### L [id number] #### [facility] ([facility]) [address] [place] [address] pH (U) 6.5 [pH] Normal 5.0-8.0 [facility] Comment on above: Order Comment: Micro scopics not performed on urines with negative chemical reactions unless requested on original order. Performed By: #### L [id number] #### [facility] ([facility]) [address] [place] [address] Protein (U) [Mass/Vol] Negative Normal Negative [facility] Comment on above: Order Comment: Micro scopics not performed on urines with negative chemical reactions unless requested on original order. Performed By: #### L [id number] #### [facility] ([facility]) [address] [place] [address] Specific gravity (U) [Rel density] 1.006 Low 1.010-1.030 [facility] Comment on above: Order Comment: Micro scopics not performed on urines with negative chemical reactions unless requested on original order. Performed By: #### L [id number] #### [facility] ([facility]) [address] [place] [address] UROBILINOGEN (MG/DL) IN URINE Normal Normal Normal [facility] Comment on above: Order Comment: Micro scopics not performed on urines with negative chemical reactions unless requested on original order. Performed By: #### L [id number] #### [facility] (BEAKER) [address] [place] [address] 36on 05-23-2024 36 Patient called again stating that she feels awful and fevers going up to 103.6. She is taking Oxycodone and it is not helping. Advised patient to present to ER. Patient stated she is headed to [facility] ER. [facility] 36 She went to [facility], and looks like they talked with both Dr. Lui and Dr. Zaragoza. Work up was benign other than fever which improved with IV tylenol and Zofran. Recommended admitting for observation or going home. She went home and said she would call if things worsened. (I have actually never seen the pt) [facility] 36 What do you suppose we should suggest here? [facility] 36 I spoke to her yesterday and had her go to her local ER to get tested for flu and covid [facility] [address] Lui recommended she go to the ER last night. She went and no relief today Fever spikes ( Last checked this morning 98.8) Terrible headache( constant, on top of head, rate pain 8) [facility] CBC WITH AUTO DIFFERENTIALon 05-23-2024 Erythrocyte distribution width (RBC) [Ratio] 19.5 % High 11.5-15.0 [facility] Comment on above: Performed By: #### L [id number] ####[facility] (BEAKER)[address] [place] [address] ERYTHROCYTE MEAN CORPUSCULAR HEMOGLOBIN CONCENTRATION (G/DL) BY AUTOMATED 32.8 g/dL Normal 32.0-35.0 [facility] Comment on above: Performed By: #### L [id number] ####[facility] (BEAKER)[address] [place] [address] Hematocrit (Bld) [Volume fraction] 29.0 % Low 36.0-45.0 [facility] Comment on above: Performed By: #### L [id number] ####[facility] (BEOMG)[address] [place] [address] Hemoglobin (Bld) [Mass/Vol] 9.5 g/dL Low 12.0-15.0 [facility] Comment on above: Performed By: #### L [id number] ####[facility] ([facility])[address] [place] [address] MCH (RBC) [Entitic mass] 30.4 pg Normal 27.0-33.0 [facility] Comment on above: Performed By: #### L [id number] ####[facility] ([facility])[address] [place] [address] MCV (RBC) [Entitic vol] 92.9 fL Normal 82.0-98.0 [facility] Comment on above: Performed By: #### L [id number] ####[facility] ([facility])[address] [place] [address] NRBC (PER 100 WBCS) BY AUTOMATED COUNT 0.0 % Normal 0 [facility] Comment on above: Performed By: #### L [id number] ####[facility] ([facility])[address] [place] [address] PLATELETS (10*3/UL) IN BLOOD AUTOMATED COUNT 220 10*3/uL Normal 150-400 [facility] Comment on above: Performed By: #### L [id number] ####[facility] ([facility])[address] [place] [address] RBC (Bld) [#/Vol] 3.12 10*6/uL Low 3.80-5.00 [facility] Comment on above: Performed By: #### L [id number] ####[facility] [place] [address] WBC (Bld) [#/Vol] 6.69 10*3/uL Normal 4.00-10.60 [facility] Comment on above: Performed By: #### L [id number] ####[facility] (BEAKER)[address] [place] [address] COMPREHENSIVE METABOLIC PANE [place] 05-23-2024 Albumin [Mass/Vol] 3.6 g/dL Normal 3.5-5.7 [facility] Comment on above: Performed By: #### L [id number] #### [facility] ([facility]) [address] [place] [address] ALP [Catalytic activity/Vol] 70 U/L Normal 34-104 [facility] Comment on above: Performed By: #### L [id number] #### [facility] ([facility]) [address] [place] [address] ALT [Catalytic activity/Vol] 26 U/L Normal 7-52 [facility] Comment on above: Performed By: #### L [id number] #### [facility] ([facility]) [address] [place] [address] Anion gap [Moles/Vol] 11 mmol/L Normal 7-20 [facility] Comment on above: Performed By: #### L [id number] #### [facility] ([facility]) [address] [place] [address] AST [Catalytic activity/Vol] 87 U/L High 13-39 [facility] Comment on above: Performed By: #### L [id number] #### [facility] ([facility]) [address] [place] [address] Bilirubin [Mass/Vol] 0.7 mg/dL Normal 0.3-1.0 [facility] Comment on above: Performed By: #### L [id number] #### [facility] ([facility]) [address] [place] [address] Calcium [Mass/Vol] 8.7 mg/dL Normal 8.6-10.3 [facility] Comment on above: Performed By: #### L [id number] #### [facility] ([facility]) [address] [place] [address] Chloride [Moles/Vol] 102 mmol/L Normal 98-107 [facility] Comment on above: Performed By: #### L [id number] #### [facility] ([facility]) [address] [place] [address] CO2 [Moles/Vol] 25 mmol/L Normal 21-31 [facility] Comment on above: Performed By: #### L [id number] #### [facility] ([facility]) [address] [place] [address] Creatinine [Mass/Vol] 0.73 mg/dL Normal 0.60-1.20 [facility] Comment on above: Performed By: #### L [id number] #### [facility] ([facility]) [address] [place] [address] GLOMERULAR FILTRATION RATE ML/MIN/1.73 SQ M.PREDICTED 98.3 mL/min/1.73m*2 Normal >60.0 [facility] Comment on above: Result Comment: [facility]???s estimated glomerular filtration rate (eGFR) will no longer include consideration of race in its calculation. The National Kidney Foundation???s eGFR Task Force developed new recommendations for the estimation of the glomerular filtration rate in the [place] They recommend immediate implementation of the new equation refit without the race variable in all laboratories because the calculation does not include race. In addition to not including race in the calculation and reporting, it included diversity in its development, and has acceptable performance characteristics and potential consequences that do not disproportionately affect any one group of individuals. Performed By: #### L [id number] #### [facility] ([facility]) [address] [place] [address] Glucose [Mass/Vol] 103 mg/dL High 70-100 [facility] Comment on above: Performed By: #### L [id number] #### [facility] ([facility]) [address] [place] [address] Potassium [Moles/Vol] 3.5 mmol/L Normal 3.5-5.1 [facility] Comment on above: Performed By: #### L [id number] #### [facility] ([facility]) [address] [place] [address] Protein [Mass/Vol] 6.1 g/dL Normal 6.0-8.3 [facility] Comment on above: Performed By: #### L [id number] #### [facility] (BEAKER) [address] [place] [address] Sodium [Moles/Vol] 134 mmol/L Low 136-145 [facility] Comment on above: Performed By: #### L [id number] #### [facility] (BEAKER) [address] [place] [address] Urea nitrogen [Mass/Vol] 9 mg/dL Normal 7-25 [facility] Comment on above: Performed By: #### L [id number] #### [facility] (BEAKER) [address] [place] [address] UREA NITROGEN/CREATININE (MASS RATIO) IN SER/PLAS 12.3 Normal [facility] Comment on above: Performed By: #### L [id number] #### [facility] ([facility] [address] [place] [address] ED Note-Physicianon 05-24-19 25 ED Note-Physician ED Note-Physician Basic Information Time Seen: Pancho CONTE, Benji Heard. 05/22/2024 19:05 Chief Complaint pt presents with c/o chills and headache. states nausea comes and goes History of Present Illness 53-year-old female with past medical history of breast cancer and history of chronic wounds postvasectomy reports emergency department with concerns of chills and headache. Reports he is on multiple antibiotics as well as Eliquis at this time. she is on amikacin as well as imipenem for antibiotic coverage. She states that she has been feeling unwell for last couple days. Was told to come in to get checked out for possible COVID, flu, or norovirus. Reports has never had fevers with this before. Reports was on antibiotics after having infection after having a vasectomy. States that she is on Eliquis. Denies any chest pain or shortness of breath. Reports, generalized bodyaches. Reports recent surgery for a debridement. Review of Systems No other aggravating or relieving factors no other associated symptoms no other prior treatments or complaints. Family: Reviewed and noncontributory Social: lives at home Review of systems negative unless otherwise specified in the HPI. Physical Exam Vitals & Measurements T: 38.2 ???C(Oral) HR: 108(Monitored) RR: 18 BP: 140/85 SpO2: 95% HT: 180.34 cm WT: 87.0 kg BMI: 26.75 General: The patient appears well and in no apparent distress. Patient is resting comfortably on bed. Febrile Skin: Warm, dry, no pallor noted. Head: Normocephalic, atraumatic Neck: No JVD Eye: PERRLA, EOMI ENT: Moist mucus membranes. Pharynx pink moist no erythema or exudates. Bilateral TMs intact with no erythema or bulging Cardiovascular: Regular rate. normal peripheral perfusion. Radial pulses +2 bilaterally Respiratory: No respiratory distress. no accessory muscle use. no obvious audible wheezing. Lung sounds clear. Chest Wall: no deformity Musculoskeletal: normal ROM, no deformity, no swelling GI: No obvious distention Neurological: A&O. moves all extremities equal strength and symmetry Psychiatric: Cooperative and appropriate Medical Decision Making MEDICAL DECISION MAKING Number and Complexity of Problems Differential Diagnosis: [] [facility] Data External documents reviewed: [] My EKG interpretation: [] My CT interpretation: [] My X-ray interpretation: reviewed My Ultrasound interpretation: [] Decision rules/scores evaluated: [] Discussed with: [] Treatment and Disposition ED Course: A 53-year-old female with a complex medical history due to infection postmastectomy reports to the emergency department with concerns of fever and body aches. Reports that she is on broad-spectrum antibiotics due to history of infections. Does follow-up with Dr. Lui as her infectious disease doctor at [facility]. Reports that he was the one that told her to come in. She states that she thinks that she may have a virus. Wanted to get checked out though. Has not taken Tylenol since 4 PM. Exam the patient here reveals that she is afebrile. No acute distress. Exam is relatively benign. Due to concerns as well as her history did do a full septic workup on the patient. Throughout her stay here though, she did develop a fever. Patient was given IV Tylenol here in the emergency department. Lab work is unremarkable. No acute changes seen. Negative COVID and flu swabs. I did perform respiratory panel with patient. Chest x-ray is negative. Patient's fever did improve with IV Tylenol as well as Zofran. Did feel improved. I discussed that this could be viral, versus bacterial type infection due to her history. Due to concerns, I did reach out to [facility] as well as I did talk to their ID doctor on-call. I did speak with Dr. Zaragoza, I did have a full discussion with him. He was able to review the patient's charts, and stated that she is complicated, and he would be comfortable with transfer the patient, as well as if the patient want to follow-up tomorrow if she comes in the hospital he was appropriate and agreeable with this. If she wanted go home he was agreeable as well. Patient's been infectious disease doctor, Dr. Lui also did call, and I did discuss case with him. He was agreeable with either admitting for observation, with the patient will go up and follow-up as outpatient, he was agreeable with that as well. I did discuss these options to the patient, and she was ultimately agreeable with discharge home. She states that she will gets worse, will immediately come back to the emergency department. Discussed return precautions. Follow-up with your primary care provider in 3 to 5 days. If symptoms worsen, do not improve, or new symptoms arise please report back to emergency department for further evaluation. The patient was understanding and agreeable to plan moving forward. Shared decision making: [] Code status: [] Assessment/Plan Body aches (R52: Pain, unspecified) Fever (R50.9: Fever, unspecified) Head ache (more content not included)... Normal [facility] Comment on above: Result Comment: Elec tronically Signed By: Benji Deleon PA-C.br\Date and Time Signed: 05/22/24 22:38 EDT\.br\Electronically Co-Signed By: Benji Deleon PA-C.br\Date and Time Co-Signed: 05/22/24 22:38 EDT\.br\Electronically Co-Signed By: Bárbara Garcia M.D.\.br\Date and Time Co-Signed: 05/23/24 00:54 EDT EDNURSon 05-23-2024 EDNURS Pt arrives from home - states that she has had an intermittent fever x 3 days. Reports going to an ER yesterday yesterday and got a full work up and came up with nothing . Normal [facility] EDPROVon 05-23-2024 EDPROV [facility] EMERGENCY DEPARTMENT ENCOUNTER Pt Name: Ike Flannery Birthdate: 1970 Date of visit: 05/23/24 HISTORY OF PRESENT ILLNESS CC (triage): Fever HPI: Patient presents for evaluation of fever and chills ongoing for the past few days. Tmax of 103.6 earlier today. She has a very significant medical history including breast cancer and mastectomy. Her recovery from mastectomy has been complicated by infection on the left side. 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 She is on IV amikacin, imipenem, ceftaroline, and PO clofazimine for the infection. Has a PICC line in the left arm, managed by Dr. Lui. She was evaluated by an outside hospital ED yesterday and had full septic work-up performed including blood cultures and respiratory panel. Blood culture results are still pending. The rest of her work-up was unremarkable. The ED provider called to consult with our ID service and was given option of transfer versus having the patient go home and present to [facility] ED if symptoms persist/worsen. Patient opted to go home but presented to ED today after spiking another fever this morning. She denies any significant tenderness/redness around her left chest wound. The packing was last changed this morning by her fiance. PREVIOUS HISTORY has a past medical history of Cancer (CMS/HCC) and Hypertension. 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 reports that she has never smoked. She has never been exposed to tobacco smoke. She has never used smokeless tobacco. She reports that she does not currently use alcohol. She reports that she does not use drugs. CURRENT MEDICATIONS No current facility-administered medications on file prior to encounter. Current Outpatient Medications on File Prior to Encounter Medication Sig acetaminophen (Tylenol) 500 mg tablet Take 500 mg by mouth every 4 (four) hours if needed for mild pain (1-3 pain score). Takes as needed for knee pain. Takes approximately 3 doses per week. amikacin (Amikin) 500 mg/2 mL injection Infuse 750 mg into a venous catheter 3 (three) times a week. Thursday, Thursday, Thursday. Diluted in 0.9% sodium chloride 100 mL and administered by IV piggyback. anastrozole (Arimidex) 1 mg chemo tablet Take 1 mg by mouth in the morning apixaban (Eliquis) 5 mg tablet Take 5 mg by mouth two times daily. pqmcivph-xvlbsivzl-ydz cium HMB (Jose) 7-7-1.5 gram powder in packet Take 1 packet by mouth two times daily. Take with a full glass of water. As of 05/20/24, patient has not started yet due to cost. calcium carbonate (Tums) 200 mg calcium (500 mg) chewable tablet Chew 1 tablet if needed each day for indigestion or heartburn. Strength not specified by patient cyanocobalamin (Vitamin B-12) 1,000 mcg tablet Take 1,000 mcg by mouth in the morning. [] diazePAM (Valium) 5 mg tablet Take 5 mg by mouth every 12 (twelve) hours if needed for anxiety. or muscle spasms (Give 30min prior to dressing change) for up to 10 days diclofenac (Voltaren Arthritis Pain) 1 % topical gel Apply 2 g topically if needed in the morning, at noon, in the evening, and at bedtime for pain. PRN available medication for patient for knee pain. Dose/frequency of use not specified by patient. folic acid (Folvite) 1 mg tablet Take 1 mg by mouth in the morning. gabapentin (Neurontin) 300 mg capsule Take 300 mg by mouth two times daily. hydrOXYzine HCL (Atarax) 25 mg tablet Take 25 mg by mouth if needed in the morning, at noon, and at bedtime for itching. ibuprofen 200 mg tablet Take 200 mg by mouth every 6 (six) hours if needed for moderate pain (4-7 pain score). Patient takes as needed for more severe knee pain. She very rarely uses due to negative effects on kidney function. imipenem-cilastatin 500 mg in sodium chloride 0.9 % 100 mL IVPB Infuse 1,000 mg into a venous catheter every 12 (twelve) hours. Patient infuses 2 bags of imipenem/cilastatin 500 mg simultaneously for a total dose of 1 gm. INV (CLOFAZIMINE) 50 mg capsule capsule Take (more content not included)... Normal [facility] MANUAL DIFFERENTIALon 2024 ANISOCYTOSIS PRESENCE IN BLOOD BY LIGHT MICROSCOPY Moderate Normal [facility] Comment on above: Performed By: #### L [id number] ####[facility] ([facility])[address] [place] [address] BASOPHILS (10*3/UL) IN BLOOD BY CALCULATION 0.01 10*3/uL Normal 0.00-0.20 [facility] Comment on above: Performed By: #### L [id number] ####[facility] ([facility] [place] [address] BASOPHILS/100 LEUKOCYTES IN BLOOD BY AUTOMATED COUNT 0.1 % Normal 0.0-1.0 [facility] Comment on above: Performed By: #### L [id number] ####[facility] ([facility])[address] [place] [address] EOSINOPHILS (10*3/UL) IN BLOOD BY CALCULATION 0.10 10*3/uL Normal 0.00-0.50 [facility] Comment on above: Performed By: #### L [id number] ####[facility] ([facility] [place] [address] EOSINOPHILS/100 LEUKOCYTES IN BLOOD BY AUTOMATED COUNT 1.5 % Normal 0.0-6.0 [facility] Comment on above: Performed By: #### L [id number] ####[facility] ([facility] [place] [address] IMMATURE GRANULOCYTES (10*3/UL) IN BLOOD BY CALCULATION 0.02 10*3/uL Normal 0.00-0.20 [facility] Comment on above: Performed By: #### L [id number] ####[facility] ([facility] [place] [address] IMMATURE GRANULOCYTES/100 LEUKOCYTES IN BLOOD BY AUTOMATED COUNT 0.3 % Normal 0.0-1.0 [facility] Comment on above: Performed By: #### L [id number] ####[facility] ([facility])[address] [place], [place] [address] LYMPHOCYTES (10*3/UL) IN BLOOD BY CALCULATION 0.26 10*3/uL Low 1.20-4.00 [facility] Comment on above: Performed By: #### L [id number] ####[facility] ([facility])[address] [place] [address] LYMPHOCYTES/100 LEUKOCYTES IN BLOOD BY AUTOMATED COUNT 3.9 % Low 20.0-45.0 [facility] Comment on above: Performed By: #### L [id number] ####[facility] ([facility])[address] [place] [address] MONOCYTES (10*3/UL) IN BLOOD BY CALCUATION 0.22 10*3/uL Normal 0.10-1.00 [facility] Comment on above: Performed By: #### L [id number] ####[facility] ([facility])[address] [place] [address] MONOCYTES/100 LEUKOCYTES IN BLOOD BY AUTOMATED COUNT 3.3 % Low 5.0-12.0 [facility] Comment on above: Performed By: #### L [id number] ####[facility] ([facility] [place] [address] NEUTROPHILS (10*3/UL) IN BLOOD BY CALCULATION 6.1 10*3/uL Normal 1.6-7.6 [facility] Comment on above: Performed By: #### L [id number] ####[facility] (BEAKER)[address] [place] [address] NEUTROPHILS/100 LEUKOCYTES IN BLOOD BY AUTOMATED COUNT 90.9 % High 40.0-72.0 [facility] Comment on above: Performed By: #### L [id number] ####[facility] (BEAKER)[address] [place] [address] POIKILOCYTOSIS (PRESENCE) IN BLOOD BY LIGHT MICROSCOPY Slight Normal [facility] Comment on above: Performed By: #### L [id number] ####[facility] (BEAKER)[address] [place] [address] POLYCHROMASIA IN BLOOD BY LIGHT MICROSCOPY Slight Normal [facility] Comment on above: Performed By: #### L [id number] ####[facility] ([facility])[address] [place] [address] Orders Onlyon 05-23-2024 Orders Only [id number] Ike Flannery 1970 F Date Provider Department Center 05/23/2024 JOSSY ESQUEDA [facility] CARE [facility] Family History Adopted: Yes Problem Relation Age of Onset Heart attack Father Family Status - Relation Status Age at Father Normal [facility] Telephoneon 05-23-2024 Telephone [phone] Ike Flannery 1970 F Date Provider Department Center 05/23/2024 ODALSY ACEVES [facility] INF [facility] Family History Adopted: Yes Problem Relation Age of Onset Heart attack Father Family Status - Relation Status Age at Father Normal [facility] XR Chest Single Viewon 05-23 XR Chest Single View Exam Date/Time: 05/22/2024 20:54 EDT Reason for Exam: Shortness of breath (SOB) Report IMPRESSION: No acute findings by portable radiography. EXAMINATION/TECHNIQUE: XR Chest Single View HISTORY: Chills. Headache. COMPARISON: None RESULT: No consolidation. No pleural effusion. No pneumothorax. Normal cardiomediastinal silhouette. No acute osseous findings. S-shaped scoliosis with convex to the right in the thoracic spine. Left-sided PICC with tip in the distal SVC. Surgical clips throughout the chest wall. Rounded densities right chest wall probably from the reported right breast putty mixer. Ordering Provider: Benji Deleon FINAL REPORT Dictated: 05/23/2024 9:07 am Michael Pappas MD Signed (Electronic Signature): 05/23/2024 9:07 am Signed by: Michael Pappas MD Transcribed by: ELIAS Technologist: CML Normal [facility] CBC w/ Auto Diffon 5 Basophils/100 WBC (Bld) 0.5 % Normal 0.0-2.0 [facility] Comment on above: Performed By: #### 2 [id number] #### [facility] [address] [place] [address] Basophils/Leukocytes Auto (Bld) [Pure # fraction] 0.0 E9/L Normal 0.0-0.2 [facility] Comment on above: Performed By: #### 2 [id number] #### [facility] [address] [place] [address] Eosinophils (Bld) [#/Vol] 0.1 E9/L Normal 0.0-0.5 [facility] Comment on above: Performed By: #### 2 [id number] #### [facility] [address] [place] [address] Eosinophils/100 WBC (Bld) 3.8 % Normal 0.0-8.0 [facility] Comment on above: Performed By: #### 2 [id number] #### [facility] [address] [place] [address] Erythrocyte distribution width (RBC) [Ratio] 22.1 % High 10.9-14.2 [facility] Comment on above: Performed By: #### 2 [id number] #### [facility] [address] [place] [address] Hematocrit (Bld) [Volume fraction] 26.9 % Low 34.0-46.0 [facility] Comment on above: Performed By: #### 2 [id number] #### [facility] [address] [place] [address] Hemoglobin (Bld) [Mass/Vol] 9.4 g/dL Low 12.0-16.0 [facility] Comment on above: Performed By: #### 2 [id number] #### [facility] [address] [place] [address] Lymphocytes (Bld) [#/Vol] 0.3 E9/L Low 1.0-4.0 [facility] Comment on above: Performed By: #### 2 [id number] #### [facility] [address] [place] [address] Lymphocytes/100 WBC (Bld) 6.8 % Low 14.0-50.0 [facility] Comment on above: Performed By: #### 2 [id number] #### [facility] [address] [place] [address] MCH (RBC) [Entitic mass] 31.5 pg Normal 27.0-34.0 [facility] Comment on above: Performed By: #### 2 [id number] #### [facility] [address] [place] [address] MCHC (RBC) [Mass/Vol] 34.8 g/dL Normal 31.4-36.[address] [facility] Comment on above: Performed By: #### 2 [id number] #### [facility] [address] [place] [address] MCV (RBC) [Entitic vol] 90.3 fL Normal 80.0-100.0 [facility] Comment on above: Performed By: #### 2 [id number] #### [facility] [address] [place] [address] Monocytes (Bld) [#/Vol] 0.2 E9/L Normal 0.2-1.0 [facility] Comment on above: Performed By: #### 2 [id number] #### [facility] [address] [place] [address] Neutrophils (Bld) [#/Vol] 3.2 E9/L Normal 2.0-7.5 [facility] Comment on above: Performed By: #### 2 [id number] #### [facility] [address] [place] [address] Neutrophils/100 WBC (Bld) 84.7 % High 36.0-75.0 [facility] Comment on above: Performed By: #### 2 [id number] #### [facility] [address] [place] [address] Platelet 188.0 E9/L Normal 150.0-500.0 [facility] Comment on above: Performed By: #### 2 [id number] #### [facility] [address] [place] [address] Platelet mean volume (Bld) [Entitic vol] 7.2 fL Normal 6.4-10.8 [facility] Comment on above: Performed By: #### 2 [id number] #### [facility] [address] [place] [address] RBC (Bld) [#/Vol] 3.0 E12/L Low 4.3-5.9 [facility] Comment on above: Performed By: #### 2 [id number] #### [facility] [address] [place] [address] WBC corrected for nucl RBC Auto (Bld) [#/Vol] 3.8 E9/L Low 4.0-11.0 [facility] Comment on above: Performed By: #### 2 [id number] #### [facility] [address] [place] [address] CHEMISTRYOrdered By: SYSTEM SYSTEM on 05-22-2024 Albumin [Mass/Vol] 3.5 g/dL Normal 3.3 - 5.0 gm/dL [facility] Chem Albumin/Globulin [Mass ratio] 1.7 {ratio} Normal 1.1 - 2.2 [facility] ALP [Catalytic activity/Vol] 64 [iU]/d Normal 21 - 98 Int._Unit/L [facility] Chem ALT No additional P-5'-P [Catalytic activity/Vol] 26 [iU]/d Normal 6 - 46 Int._Unit/L [facility] Chem Anion gap [Moles/Vol] 10 mmol/L Normal 6 - 16 mEq/L R emisol Chem AST [Catalytic activity/Vol] 45 [iU]/d High 5 - 43 Int._Unit/L [facility] Chem Bilirubin [Mass/Vol] 0.7 mg/dL Normal 0.0 - 1 .1 mg/dL [facility] Chem Calcium [Mass/Vol] 8.8 mg/dL Low 8.9 - 11. 1 mg/dL [facility] Chloride [Moles/Vol] 105 mmol/L Normal 101 - 1 11 mmol/L [facility] Chem CO2 [Moles/Vol] 25 mmol/L Normal 21 - 31 mmol/L [facility] Chem Creatinine [Mass/Vol] 0.7 mg/dL Normal 0.5 - 1.3 mg/dL [facility] Chem eGFR 103 mL/min/1.73 m2 Normal >=59mL/mi n/1 .73 m2 [facility] Globulin (S) [Mass/Vol] 2.1 g/dL Normal 1.4 - 4.0 gm/dL [facility] Glucose [Mass/Vol] 102 mg/dL Normal 55 - 199 mg/dL [facility] Chem Lactic Acid Lvl 1.0 mmol/L Normal 0.5 - 2.2 mmol/L [facility] Chem Potassium [Moles/Vol] 3.1 mmol/L Low 3.5 - 5.3 mmol/L [facility] Chem Protein [Mass/Vol] 5.6 g/dL Low 6.0 - 7.8 gm/dL [facility] Chem Sodium [Moles/Vol] 137 mmol/L Normal 135 - 145 mmol/L [facility] Chem Troponin HS 11.90 pg/mL Normal 10.10 - 27.10 pg/mL [facility] Comment on above: Interpretive Data: T he 95% CI (Confidence Interval) PPV (Positive Predictive Value) for myocardial infarction in females is 38 pg/mL, in males 51 pg/mL. The results should be used in conjunction with clinical conditions of myocardial infarction. (Access High Sensitivity Troponin I Instructions For Use, [place], September 2017) Urea nitrogen [Mass/Vol] 8 mg/dL Normal 5 - 21 mg/dL [facility] Urea nitrogen/Creatinine [Mass ratio] 11 mg/mg Normal 10 - 20 [facility] Chem CMPon 05-22-2024 Albumin [Mass/Vol] 3.5 g/dL Normal 3.3-5.0 [facility] Comment on above: Performed By: #### 2 [id number] #### [facility] [address] [place] [address] Albumin/Globulin (S) [Mass conc ratio] 1.7 Normal 1.1-2.2 [facility] Comment on above: Performed By: #### 2 [id number] #### [facility] [address] [place] [address] ALP [Catalytic activity/Vol] 64 Int._Unit/L Normal 21-98 [facility] Comment on above: Performed By: #### 2 [id number] #### [facility] [address] [place] [address] ALT No additional P-5'-P [Catalytic activity/Vol] 26 Int._Unit/L Normal 6-46 [facility] Comment on above: Performed By: #### 2 [id number] #### [facility] [address] [place] [address] Anion gap [Moles/Vol] 10 mmol/L Normal 6-[address] [facility] Comment on above: Performed By: #### 2 [id number] #### [facility] [address] [place] [address] AST [Catalytic activity/Vol] 45 Int._Unit/L High 5-43 [facility] Comment on above: Performed By: #### 2 [id number] #### [facility] [address] [place] [address] Bilirubin [Mass/Vol] 0.7 mg/dL Normal 0.0-1.1 [facility] Comment on above: Performed By: #### 2 [id number] #### [facility] [address] [place] [address] Calcium [Mass/Vol] 8.8 mg/dL Low 8.9-11.1 [facility] Comment on above: Performed By: #### 2 [id number] #### [facility] [address] [place] [address] Chloride [Moles/Vol] 105 mmol/L Normal 101-111 [facility] Comment on above: Performed By: #### 2 [id number] #### [facility] [address] [place] [address] CO2 [Moles/Vol] 25 mmol/L Normal 21-31 [facility] Comment on above: Performed By: #### 2 [id number] #### [facility] [address] [place] [address] Creatinine [Mass/Vol] 0.7 mg/dL Normal 0.5-1.[address] [facility] Comment on above: Performed By: #### 2 [id number] #### [facility] [address] [place] [address] Globulin (S) [Mass/Vol] 2.1 g/dL Normal 1.4-4.0 [facility] Comment on above: Performed By: #### 2 [id number] #### [facility] [address] [place] [address] Glucose [Mass/Vol] 102 mg/dL Normal 55-199 [facility] Comment on above: Performed By: #### 2 [id number] #### [facility] [address] [place] [address] Potassium [Moles/Vol] 3.1 mmol/L Low 3.5-5.[address] [facility] Comment on above: Performed By: #### 2 [id number] #### [facility] [address] [place] [address] Protein [Mass/Vol] 5.6 g/dL Low 6.0-7.8 [facility] Comment on above: Performed By: #### 2 [id number] #### [facility] [address] [place] [address] Sodium [Moles/Vol] 137 mmol/L Normal 135-145 [facility] Comment on above: Performed By: #### 2 [id number] #### [facility] [address] [place] [address] Urea nitrogen [Mass/Vol] 8 mg/dL Normal 5-21 [facility] Comment on above: Performed By: #### 2 [id number] #### [facility] [address] [place] [address] Urea nitrogen/Creatinine [Mass ratio] 11 No Units Normal 10-20 [facility] Comment on above: Performed By: #### 2 [id number] #### [facility] [address] [place] [address] COAGULATIONOrdered By: Seth Smith on 05-22-2024 aPTT Coag (PPP) [Time] 21.3 s Low 25.1 - 36.5 second(s) [facility] Comment on above: Interpretive Data: P arameter 15 days - 4 weeks 1 - 5 months 6 - 11 months 1 - 5 years 6 - 10 years 11 - 17 years PTT Mean: 35.4 (27.6-45.6) Mean: 33.5 (24.8-40.7) Mean: 32.4 (25.1-40.7) Mean: 31.6 (24.0-39.2) Mean: 31.6 (26.9-38.7) Mean: 31.0 (24.6-38.4) Pediatric Reference ranges were obtained from a study by Samy Butterfield et al. prepared from 1437 samples obtained at 7 different centers using the same coagulation reagent and instrumentation as [facility]. Currently there are no coagulation studies available worldwide for children to 14 days, and no normal ranges. Heparin therapeutic range (represented by Anti-Factor Xa activity of 0.2 - 0.4 U/mL) corresponds to PTT of 56.6 - 109.0 sec. INR Coag (PPP) [Relative time] 1.29 {INR} Invalid Interpretation Code [facility] Comment on above: Interpretive Data: I NR results are specifically intended to assess patients stabilized on long-term Anticoagulation therapy suggested INR s Less Intensive Anticoagulation 2.0 3.0 Conventional Range 3.0 4.5 PT Coag (PPP) [Time] 14.5 s High 9.4 - 1 2.5 second(s) [facility] Comment on above: Interpretive Data: 1 5 days - 4 weeks 1 - 5 months 6 -11 months 1 5 years 6 10 years 11 -17 years Mean: 11.2 (9.5 12.6) Mean: 11.0 (9.7 12.8) Mean: 11.0 (9.8 13.0) Mean: 11.3 (9.9 13.4) Mean: 11.7 (10.0 14.6) Mean: 11.8 (10.0 - 14.1) Pediatric Reference ranges were obtained from a study by Samy Butterfield et al. prepared from 1437 samples obtained at 7 different centers using the same coagulation reagent and instrumentation as [facility]. Currently there are no coagulation studies available worldwide for children to 14 days, and no normal ranges. ED Clinical Summaryon 2024 ED Clinical Summary ED Clinical Summary [place] [id number] ED Clinical Summary Person Information Name: IKE FLANNERY/[facility] Age: 53 Years : 1970 Sex: Female Language: [place] PCP: RANDY CALLE DO Marital Status: Phone: [phone] Visit Id: Visit Reason: Chills; Headache; headache,fever,chills Speciality: Acuity: 4 Enc Type: Emergency Med Service: Emergency Arrival: 05/22/2024 18:54:27 Discharge: 05/22/2024 23:11:17 LOS: 000 04:17 Checkin: 05/22/2024 18:54:27 Checkout: 05/22/2024 23:11:17 Dispo Type: Home (Routine DC) EVENTS: Event Name Event Status Request Date/Time Start Date/Time Complete Date/Time Arrive Complete 05/22/2024 18:54:27 05/22/2024 18:54:27 05/22/2024 18:54:27 Document Home Meds Request 05/22/2024 18:54:27 Triage Complete 05/22/2024 18:54:27 05/22/2024 19:03:53 05/22/2024 19:03:53 Registration Complete 05/22/2024 18:57:39 05/22/2024 18:57:39 05/22/2024 18:57:39 Reg Complete Request 05/22/2024 18:57:39 Reg Bed Request Complete 05/22/2024 18:57:39 05/22/2024 18:57:39 05/22/2024 18:57:39 Bed Assign Complete 05/22/2024 18:59:50 05/22/2024 18:59:50 05/22/2024 18:59:50 Dr Exam Complete 05/22/2024 18:59:50 05/22/2024 19:05:48 05/22/2024 19:05:48 RN Exam Complete 05/22/2024 18:59:50 05/22/2024 19:25:34 05/22/2024 19:25:34 Registration Start 05/22/2024 19:05:48 05/22/2024 19:57:23 Pending Labs Complete 05/22/2024 19:09:37 05/22/2024 20:13:49 Lab Complete 05/22/2024 19:09:37 05/22/2024 20:13:49 Swab Complete 05/22/2024 19:09:37 05/22/2024 20:08:17 Dr Exam Complete 05/22/2024 19:20:17 05/22/2024 19:20:17 05/22/2024 19:20:17 Pending Labs Request 05/22/2024 19:57:31 Lab Request 05/22/2024 19:57:31 X-Ray Complete 05/22/2024 19:57:31 05/22/2024 20:05:50 05/22/2024 20:54:58 Meds Admin Complete 05/22/2024 20:22:26 05/22/2024 20:34:19 Pending Labs Complete 05/22/2024 20:23:10 05/22/2024 20:23:10 05/22/2024 20:45:52 Lab Complete 05/22/2024 20:23:10 05/22/2024 20:23:10 05/22/2024 20:45:52 Pending Labs Complete 05/22/2024 20:52:30 05/22/2024 20:52:30 05/22/2024 20:52:30 Wet Read Request 05/22/2024 20:54:58 Possible SIRS Request 05/22/2024 21:00:51 Meds Admin Complete 05/22/2024 22:12:33 05/22/2024 22:23:03 Discharge Complete 05/22/2024 22:13:08 05/22/2024 23:11:22 05/22/2024 23:11:22 Transfer Complete 05/22/2024 23:11:22 05/22/2024 23:11:22 05/22/2024 23:11:22 ADDRESS: [id number] [facility] [id number] PHYS DOC NOTES: MEDICAL INFORMATION: Prescriptions Given: Medications to Continue with No Changes Other Medications amikacin apixaban (Eliquis 5 mg oral tablet) 1 Tablets By Mouth 2 times a day. ceftaroline (Teflaro 600 mg intravenous injection) 600 Milligram Intravenous every 8 hours. chlorthalidone as directed. cyanocobalamin (Vitamin B12) By Mouth every day. cyclobenzaprine as directed. folic acid (folic acid 1 mg Tab) 1 Tablets By Mouth every day. imipenem-cilastatin (Imipenem-cilastatin 500 mgIVPB) 1,000 Milligram Intravenous every 12 hours. lisinopril (lisinopril 20 mg Tab) 1 Tablets By Mouth every day. metoprolol as directed. metoprolol (metoprolol tartrate 100 mg Tab) 1 Tablets By Mouth every day. potassium chloride (potassium chloride 10 mEq ER Tab) 2 Tablets By Mouth 2 times a day. pyridoxine (Vitamin B6) By Mouth every day. spironolactone as directed. trazodone (traZODONE 50 mg Tab) By Mouth 2 times a day. PATIENT EDUCATION INFORMATION: Instructions: Follow up: With: Address: When: HERMAN LUI [address] [place] [address] [address] [place] [address] In 3 days 05/25/2024 Comments: Call Dr for diagnosis based follow up With: Address: When: RANDY CALLE [address] [place] [id number] [facility] (4) In 3 days DIAGNOSIS: Body aches; Fever; Head ache Normal [facility] ED Patient Education Noteon 05-22-2024 ED Patient Education Note ED Patient Education Note Normal [facility] ED Patient Summaryon 025 ED Patient Summary ED Patient Summary [place] [id number] Patient Discharge Instructions Person Information Name: IKE FLANNERY Age: 53 Years Arrival Date: 05/22/2024 18:54:27 Discharge Diagnosis: Body aches; Fever; Head ache Primary Care Physician: RANDY CALLE DO Provider Information Primary Provider: Bárbara Garcia M.D. Advanced Grain Roaster:Benji Deleon PA-C The exam and treatment you received in the Emergency Department were for an urgent problem and are not intended as complete care. It is important that you follow up with a doctor, nurse practitioner, or physician???s assistant strength coach for ongoing care. If your symptoms become worse or you do not improve as expected and you are unable to reach your usual health care provider, you should return to the Emergency Department. We are available 24 hours a day. IKE FLANNERY has been given the following list of patient education materials, prescriptions and follow-up instructions: Follow-up Instructions: With: Address: When: HERMAN LUI [address] [place] [address] In 3 days 05/25/2024 Comments: Call Dr for diagnosis based follow up With: Address: When: RANDY CALLE [address] [place], [place] [id number] [facility] (1) In 3 days In the event that this physician does not participate in your insurance network, please consult with your insurance company to find a nearby participating provider. Patient Education Materials: A MESSAGE TO ALL PATIENTS REGARDING OPIOIDS PRESCRIPTION OPIOIDS: WHAT YOU NEED TO KNOW Prescription opioids can be used to help relieve jxpvsohy-wz-sdwmby pain and are often prescribed following a [...] guidance from the Food and Drug Administration (www.fda.gov/Drugs/Res ourcesForYou). ??? Visit www.cdc.gov/drugoverdo se to learn about (more content not included)... Normal [facility] HEMATOLOGYOrdered By: SYSTEM SYSTEM on 05-22-2024 Basophils/100 WBC (Bld) 0.5 % Normal 0.0 - 2.0 % [facility]e Basophils/Leukocytes Auto (Bld) [Pure # fraction] 0.0 E9/L Normal 0.0 - 0.2 E9/L [facility] Eosinophils (Bld) [#/Vol] 0.1 E9/L Normal 0.0 - 0.5 E9/L [facility] Eosinophils/100 WBC (Bld) 3.8 % Normal 0.0 - 8.0 % [facility] Erythrocyte distribution width (RBC) [Ratio] 22.1 % High 10.9 - 14.2 % [facility] Hematocrit (Bld) [Volume fraction] 26.9 % Low 34.0 - 46.0 % [facility] Hemoglobin (Bld) [Mass/Vol] 9.4 g/dL Low 12.0 - 16.0 gm/dL [facility] Lymphocytes (Bld) [#/Vol] 0.3 E9/L Low 1.0 - 4.0 E9/L [facility] Lymphocytes/100 WBC (Bld) 6.8 % Low 14.0 - 50.0 % [facility] MCH (RBC) [Entitic mass] 31.5 pg Normal 27.0 - 34.0 pg [facility]e MCHC (RBC) [Mass/Vol] 34.8 g/dL Normal 31.4 - 36.0 gm/dL [facility] MCV (RBC) [Entitic vol] 90.3 fL Normal 80.0 - 100.0 fL [facility] Monocytes (Bld) [#/Vol] 0.2 E9/L Normal 0.2 - 1.0 E9/L [facility] Monocytes/100 WBC (Bld) 4.2 % Normal 4.0 - 14.0 % [facility] Neutrophils (Bld) [#/Vol] 3.2 E9/L Normal 2.0 - 7.5 E9/L [facility] Neutrophils/100 WBC (Bld) 84.7 % High 36.0 - 75.0 % [facility] Platelet 188.0 E9/L Normal 150.0 - 500.0 E9/L [facility] Platelet mean volume (Bld) [Entitic vol] 7.2 fL Normal 6.4 - 10.8 fL [facility] RBC (Bld) [#/Vol] 3.0 E12/L Low 4.3 - 5.9 E12/L [facility] WBC corrected for nucl RBC Auto (Bld) [#/Vol] 3.8 E9/L Low 4.0 - 11.0 E9/L [facility] Influenza A&B Agon Influenzae A Ag Negative Normal Negative [facility] Comment on above: Performed By: #### 1 [id number] #### [facility] [address] [place] [address] Influenzae B Ag Negative Normal Negative [facility] Comment on above: Result Comment: Test sensitivity and specificity vary for age group, specimen type, antigen types, and prevalence of disease. Test results must be evaluated in conjunction with other clinical data available to the physician. Individuals who received nasally administered Influenza A vaccine may have positive test results up to 3 days after vaccination. Performed By: #### 1 [id number] #### [facility] [address] [place] [address] Lactic Acidon 05-22-2024 Lactic Acid Lvl 1.0 mmol/L Normal 0.5-2.2 [facility] Comment on above: Performed By: #### 2 [id number] #### [facility] [address] [place] [address] MICRO OTHER TESTSOrdered By: Elke Barrientos on 05-22-2024 Influenzae A Ag Negative (05/22/24 7:26 PM) Normal Negative [facility] Influenzae B Ag Negative 2 (05/22/24 7:26 PM) Normal Negative [facility] Comment on above: Interpretive Data: T est sensitivity and specificity vary for age group, specimen type, antigen types, and prevalence of disease. Test results must be evaluated in conjunction with other clinical data available to the physician. Individuals who received nasally administered Influenza A vaccine may have positive test results up to 3 days after vaccination. Rapid COV Int NEG Ctl Pass (05/22/24 7:26 PM) Normal [facility] Rapid COV Int POS Ctl Pass (05/22/24 7:26 PM) Normal [facility] SARS-CoV+SARS-CoV-2 (COVID-19) Ag IA.rapid Ql (Resp) Not Detected 7 (05/22/24 7:26 PM) Normal Not Detected [facility] Comment on above: Interpretive Data: Magui soliz Zync[employer] Veritor System for Rapid Detection of SARS-CoV-2 is a chromatographic digital immunoassay intended for the direct and qualitative detection of SARS-CoV-2 nucleocapsid antigens in nasal swabs from individuals who are suspected of COVID-19 by their healthcare provider within the first five days of the onset of symptoms. Negative results should be treated as presumptive, do not rule out SARS-CoV-2 infection and should not be used as the sole basis for treatment or patient management decisions, including infection control decisions. Negative results should be considered in the context of a patient s recent exposures, history and the presence of clinical signs and symptoms consistent with COVID-19, and confirmed with a molecular assay, if necessary, for patient management. For in vitro diagnostic use. In the [place], only for use under an Emergency Use Authorization. In the [place], this test has not been FDA cleared or approved; this test has been authorized by FDA under an EUA for use by authorized laboratories; use by laboratories certified under the CLIA, 42 U.S.C. 263a, that meet requirements to perform moderate, high, or waived complexity tests and at the Point of Care (POC), i.e., in patient care settings operating under a CLIA Certificate of Waiver, Certificate of Compliance, or Certificate of Accreditation. This test has been authorized only for the detection of proteins from SARS-CoV-2, not for any other viruses or pathogens; and, in the [place], this test is only authorized for the duration of the declaration that circumstances exist justifying the authorization of emergency use of in vitro diagnostics for detection and/or diagnosis of the virus that causes COVID-19 under Section 564(b)(1) of the Act, 21 U.S.C. 360bbb-3(b)(1), unless the authorization is terminated or revoked sooner. PT & PTTon 05-22-2024 aPTT Coag (PPP) [Time] 21.3 second(s) Low 25.1-36.5 [facility] Comment on above: Result Comment: Para meter 15 days - 4 weeks 1 - 5 months 6 - 11 months 1 - 5 years 6 - 10 years 11 - 17 years PTT Mean: 35.4 (27.6-45.6) Mean: 33.5 (24.8-40.7) Mean: 32.4 (25.1-40.7) Mean: 31.6 (24.0-39.2) Mean: 31.6 (26.9-38.7) Mean: 31.0 (24.6-38.4) Pediatric Reference ranges were obtained from a study by Samy Butterfield et al. prepared from 1437 samples obtained at 7 different centers using the same coagulation reagent and instrumentation as [facility]. Currently there are no coagulation studies available worldwide for children to 14 days, and no normal ranges. Heparin therapeutic range (represented by Anti-Factor Xa activity of 0.2 - 0.4 U/mL) corresponds to PTT of 56.6 - 109.0 sec. Performed By: #### 1 [id number] #### [facility] [address] [place] [address] INR Coag (PPP) [Relative time] 1.29 {INR} Invalid Interpretation Code [facility] Comment on above: Result Comment: INR results are specifically intended to assess patients stabilized on long-term Anticoagulation therapy suggested INR???s ???Less Intensive Anticoagulation??? 2.0 ??? 3.0 Conventional Range 3.0 ??? 4.5 Performed By: #### 1 [id number] #### [facility] [address] [place] [address] PT Coag (PPP) [Time] 14.5 second(s) High 9.4-12.5 [facility] Comment on above: Result Comment: 15 d ays - 4 weeks 1 - 5 months 6 -11 months 1 ??? 5 years 6 ??? 10 years 11 -17 years Mean: 11.2 (9.5 ??? 12.6) Mean: 11.0 (9.7 ??? 12.8) Mean: 11.0 (9.8 ??? 13.0) Mean: 11.3 (9.9 ??? 13.4) Mean: 11.7 (10.0 ??? 14.6) Mean: 11.8 (10.0 - 14.1) Pediatric Reference ranges were obtained from a study by Samy Butterfield et al. prepared from 1437 samples obtained at 7 different centers using the same coagulation reagent and instrumentation as [facility]. Currently there are no coagulation studies available worldwide for children to 14 days, and no normal ranges. Performed By: #### 1 [id number] #### [facility] [address] [place] [address] Rapid COVID Antigen [place] 05-22-2024 Rapid COV Int NEG Ctl Pass Normal Fis [facility] Comment on above: Performed By: #### 2 [id number] #### [facility] [address] [place] [address] Rapid COV Int POS Ctl Pass Normal Fis [facility] Comment on above: Performed By: #### 2 [id number] #### [facility] [address] [place] [address] SARS-CoV+SARS-CoV-2 (COVID-19) Ag IA.rapid Ql (Resp) Not detected Normal Not Detected [facility] Comment on above: Result Comment: The Zyncro Veritor??? System for Rapid Detection of SARS-CoV-2 is a chromatographic digital immunoassay intended for the direct and qualitative detection of SARS-CoV-2 nucleocapsid antigens in nasal swabs from individuals who are suspected of COVID-19 by their healthcare provider within the first five days of the onset of symptoms. Negative results should be treated as presumptive, do not rule out SARS-CoV-2 infection and should not be used as the sole basis for treatment or patient management decisions, including infection control decisions. Negative results should be considered in the context of a patient???s recent exposures, history and the presence of clinical signs and symptoms consistent with COVID-19, and confirmed with a molecular assay, if necessary, for patient management. For in vitro diagnostic use. In the [place], only for use under an Emergency Use Authorization. In the [place], this test has not been FDA cleared or approved; this test has been authorized by FDA under an EUA for use by authorized laboratories; use by laboratories certified under the CLIA, 42 U.S.C. ???263a, that meet requirements to perform moderate, high, or waived complexity tests and at the Point of Care (POC), i.e., in patient care settings operating under a CLIA Certificate of Waiver, Certificate of Compliance, or Certificate of Accreditation. This test has been authorized only for the detection of proteins from SARS-CoV-2, not for any other viruses or pathogens; and, in the [place], this test is only authorized for the duration of the declaration that circumstances exist justifying the authorization of emergency use of in vitro diagnostics for detection and/or diagnosis of the virus that causes COVID-19 under Section 564(b)(1) of the Act, 21 U.S.C. ??? 360bbb-3(b)(1), unless the authorization is terminated or revoked sooner. Performed By: #### 2 [id number] #### [facility] [address] [place] [address] Respiratory Panel by PCRon 0 05-22-2024 Adenovirus DNA KYLE+non-probe Ql (Nph) Not detected Normal [facility] Comment on above: Result Comment: Test ing was performed using nucleic acid amplification including Influenza A, Influenza A H1, Influenza A H3, Influenza B, RSV A, RSV B, Adenovirus, Human Metapneumovirus, Parainfluenza 1,2,3, and 4, Rhinovirus, Bordetella parapertussis/bronchiseptica, Bordetella holmesii, and Bordetella pertussis. Performed By: #### 1 [id number] #### [facility] [address] [place] [address] B. holmesii DNA KYLE+probe Ql (Unsp spec) Not detected Normal [facility] Comment on above: Performed By: #### 1 [id number] #### [facility] [address] [place] [address] B. parapertussis DNA KYLE+probe Ql (Upper resp) Not detected Normal Not Detected [facility] Comment on above: Performed By: #### 1 [id number] #### [facility] [address] [place] [address] BORDETELLA PERTUSSIS DNA:PRTHR:PT:XXX:ORD: Not detected Normal Not Detected [facility] Comment on above: Performed By: #### 1 [id number] #### [facility] [address] [place] [address] FLUAV H1 RNA KYLE+non-probe Ql (Nph) Not detected Normal [facility] Comment on above: Performed By: #### 1 [id number] #### [facility] [address] [place] [address] FLUAV H3 RNA KYLE+non-probe Ql (Nph) Not detected Normal [facility] Comment on above: Performed By: #### 1 [id number] #### [facility] [address] [place] [address] FLUAV RNA KYLE+non-probe Ql (Nph) Not detected Normal [facility] Comment on above: Performed By: #### 1 [id number] #### [facility] [address] [place] [address] FLUBV RNA KYLE+non-probe Ql (Nph) Not detected Normal [facility] Comment on above: Performed By: #### 1 [id number] #### [facility] [address] [place] [address] Human Metapneumovirus Not detected Normal [facility] Comment on above: Result Comment: This test result should be correlated with clinical presentations and medical history by a healthcare provider to determine its clinical significance. Performed By: #### 1 [id number] #### [facility] [address] [place] [address] Parainfluenza virus 1 RNA KYLE+non-probe Ql (Nph) Not detected Normal [facility] Comment on above: Performed By: #### 1 [id number] #### [facility] [address] [place] [address] Parainfluenza virus 2 RNA KYLE+non-probe Ql (Nph) Not detected Normal [facility] Comment on above: Performed By: #### 1 [id number] #### [facility] [address] [place] [address] Parainfluenza virus 3 RNA KYLE+non-probe Ql (Nph) Not detected Normal [facility] Comment on above: Performed By: #### 1 [id number] #### [facility] [address] [place] [address] Parainfluenza virus 4 RNA KYLE+non-probe Ql (Nph) Not detected Normal [facility] Comment on above: Performed By: #### 1 [id number] #### [facility] [address] [place] [address] Resp Panel Intrl QC Pass Normal [facility] Comment on above: Performed By: #### 1 [id number] #### [facility] [address] [place] [address] Rhinovirus+Enteroviru s RNA KYLE+non-probe Ql (Nph) Not detected Normal [facility] Comment on above: Performed By: #### 1 [id number] #### [facility] [address] [place] [address] RSV A RNA KYLE+probe Ql (Nph) Not detected Normal [facility] Comment on above: Performed By: #### 1 [id number] #### [facility] [address] [place] [id number] RSV B RNA KYLE+probe Ql (Nph) Not detected Normal [facility] Comment on above: Performed By: #### 1 [id number] #### [facility] [address] [place] [address] Troponinon 05-22-2024 Troponin HS 11.90 pg/mL Normal 10.10-27.10 [facility] Comment on above: Result Comment: The 95% CI (Confidence Interval) PPV (Positive Predictive Value) for myocardial infarction in females is 38 pg/mL, in males 51 pg/mL. The results should be used in conjunction with clinical conditions of myocardial infarction. (Access High Sensitivity Troponin I Instructions For Use, [place], September 2017) Performed By: #### 2 [id number] #### [facility] [address] [place] [address] UA with Cult Rflxon 05-23-19 25 Bilirubin Ql (U) Negative Normal Negative [facility] Comment on above: Performed By: #### 4 [id number] #### [facility] [address] [place] [address] Clarity (U) Clear Normal Clear [facility] Comment on above: Performed By: #### 4 [id number] #### [facility] [address] [place] [address] Color (U) Light-Yellow Normal Yellow [facility] Comment on above: Result Comment: Micr oscopic readings are only performed on those samples that meet specific criteria set forth by [facility]. Performed By: #### 4 [id number] #### [facility] [address] [place] [address] Glucose Ql (U) Negative Normal Negative [facility] Comment on above: Performed By: #### 4 [id number] #### [facility] [address] [place] [address] Hemoglobin Auto test strip (U) [Mass/Vol] Negative Normal Negative [facility] Comment on above: Performed By: #### 4 [id number] #### [facility] [address] [place] [address] Ketones Auto test strip Ql (U) Negative Normal Negative [facility] Comment on above: Performed By: #### 4 [id number] #### [facility] [address] [place] [address] Leukocyte esterase Auto test strip Ql (U) Negative Normal Negative [facility] Comment on above: Performed By: #### 4 [id number] #### [facility] [address] [place] [address] Nitrite Auto test strip Ql (U) Negative Normal Negative [facility] Comment on above: Performed By: #### 4 [id number] #### [facility] [address] [place] [address] pH (U) 7.5 [pH] Invalid Interpretation Code 5.0-9.0 [facility] Comment on above: Performed By: #### 4 [id number] #### [facility] [address] [place] [address] Protein Ql (U) Negative Normal Negative [facility] Comment on above: Performed By: #### 4 [id number] #### [facility] [address] [place] [address] Specific gravity (U) [Rel density] 1.013 Invalid Interpretation Code 1.005-1.030 [facility] Comment on above: Performed By: #### 4 [id number] #### [facility] [address] [place] [address] Urobilinogen (U) [Mass/Vol] Negative Normal Negative [facility] Comment on above: Performed By: #### 4 [id number] #### [facility] [address] [place] [address] Type of Urine collection method Clean Catch Normal [facility] Comment on above: Performed By: #### 4 [id number] #### [facility] [address] [place] [address] URINALYSISOrdered By: SYSTEM SYSTEM on 05-22-2024 Bilirubin Ql (U) Negative Normal Negativemg/ d L [facility] UA Auto SS Clarity (U) Clear (05/22/24 8:55 PM) Normal Clear [facility] UA Auto SS Color (U) Light-Yellow 1 (05/22/24 8:55 PM) Normal Yellow [facility] UA Auto SS Comment on above: Interpretive Data: M icroscopic readings are only performed on those samples that meet specific criteria set forth by [facility]. Glucose Ql (U) Negative Normal Negativemg/d L [facility] UA Auto SS Hemoglobin Auto test strip (U) [Mass/Vol] Negative Normal Negativemg/d L [facility]A Auto SS Ketones Auto test strip Ql (U) Negative Normal Negativemg/d L [facility] UA Auto SS Leukocyte esterase Auto test strip Ql (U) Negative Normal NegativeLeu/ uL [facility] UA Auto SS Nitrite Auto test strip Ql (U) Negative Normal Negativemg/d L [facility] UA Auto SS pH (U) 7.5 *NA* (05/22/24 8:55 PM) Invalid Interpretation Code 5.0 - 9.0 [facility] UA Auto SS Protein Ql (U) Negative Normal Negativemg/d L [facility] UA Auto SS Specific gravity (U) [Rel density] 1.013 *NA* (05/22/24 8:55 PM) Invalid Interpretation Code 1.005 - 1.030 [facility] UA Auto SS Urobilinogen (U) [Mass/Vol] Negative Normal Negativemg/d L [facility] UA Auto SS URINALYSISOrdered By: Benji mejia on 05-22-2024 UA Spec Desc Clean Catch (05/22/24 8:55 PM) Normal [facility] UA Auto SS eGFRon 05-22-2024 eGFR 103 mL/min/1.73 m2 Normal >=59 [facility] Comment on above: Performed By: #### 1 [id number] #### [facility] [address] [place] [address] Follow-Upon 05-20-2024 Follow-Up [id number] Ike Flannery 1970 F Date Provider Department Center 05/20/2024 [facility] INF Anthony Heal Family History Adopted: Yes Problem Relation Age of Onset Heart attack Father Family Status - Relation Status Age at Father Level of Service:99670 MD OFFICE/OUTPATIENT ESTABLISHED HIGH MDM 40 MIN Normal [facility] Orders Onlyon 05-20-2024 Orders Only [id number] Ike Flannery 1970 F Date Provider Department Center 05/20/2024 [facility] Family History Adopted: Yes Problem Relation Age of Onset Heart attack Father Family Status - Relation Status Age at Father Normal [facility] 36on 05-16-2024 36 Received call back from patient. Patient voiced concern that she has lots of IV antibiotics during the day to administer. With the increase in dose from imipenem/cilastatin 500 mg to 1 gm, she has to infuse two 500 mg imipenem/cilastatin bags (sometimes is able to infuse both bags at the same time if the lumen is working). I investigated this further and determined that this is the only way outpatient that a 1 gm dose can be provided due to how imipenem/cilastatin is supplied. Additionally, ceftaroline was started during hospitalization and is continued as an outpatient, and that is done 3 times a day. The middle of the day IV ceftaroline is the most challenging dose for her to do. I will communicate this with Dr. Lui. Patient was instructed not to take VERZINO at this time. She is seeing Dr. Hope on 05/17. Mentioned that she received a dose of NEULASTA. Patient asked me if tedizolid was permanently discontinued or if this is a temporary hold. I had already discussed this with Dr. Lui prior to phone call, so I let Tia know that this is a temporary hold right now due to the pancytopenia. Amikacin trough to be done on 05/16 and peak on 05/18. Tia confirmed availability to attend 06/[address] Moody and 05/[address] Lui. Avi Tobar, PharmD, BCPS Normal [facility] Telephoneon 05-16-2024 Telephone [id number] Ike Flannery Yumi 1970 F Date Provider Department Center 05/16/2024 [facility] RX None Family History Adopted: Yes Problem Relation Age of Onset Heart attack Father Family Status - Relation Status Age at Father Normal [facility] CBC AND AUTO DIFFon 05-14-19 25 ABSOLUTE BASOPHIL 0.1 X10E9/L Normal 0.0-0.2 [facility] Comment on above: Performed By: #### C BCA ####[facility] ([id number])[address] [place] [address] ABSOLUTE NEUTROPHIL 9.3 X10E9/L High 1.5-6.6 [facility] Comment on above: Performed By: #### C BCA ####[facility] ([id number])[address] [place] [address] Basophils/100 WBC (Bld) 0.6 % Normal [facility] Comment on above: Performed By: #### C BCA ####[facility] ([id number])[address] [facility] [place] [address] Eosinophils (Bld) [#/Vol] 0.1 10*3/uL Normal 0.0-0.4 [facility] Comment on above: Performed By: #### C BCA ####[facility] ([id number])[address] [facility] [place] [address] Eosinophils/100 WBC (Bld) 1.3 % Normal [facility] Comment on above: Performed By: #### C BCA ####[facility] ([id number])5[address] [facility] [place] [address] Erythrocyte distribution width (RBC) [Ratio] 21.8 % High 11.5-15.0 [facility] Comment on above: Performed By: #### C BCA ####[facility] ([id number])[address] [place] [address] Hematocrit (Bld) [Volume fraction] 26.6 % Low 35-47 [facility] Comment on above: Performed By: #### C BCA ####[facility] ([id number])[address] [facility] [place] [address] Hemoglobin (Bld) [Mass/Vol] 9.1 g/dL Low 11.7-15.5 [facility] Comment on above: Performed By: #### C BCA ####[facility] ([id number])[address] [facility] [place] [address] Lymphocytes (Bld) [#/Vol] 0.8 10*3/uL Low 1.0-3.5 [facility] Comment on above: Performed By: #### C BCA ####[facility] ([id number])[address] [place] [address] Lymphocytes/100 WBC (Bld) 7.0 % Normal [facility] Comment on above: Performed By: #### C BCA ####[facility] ([id number])[address] [place] [address] MCH (RBC) [Entitic mass] 30.7 pg Normal 27-34 [facility] Comment on above: Performed By: #### C BCA ####[facility] ([id number])[address] [place] [address] MCHC (RBC) [Mass/Vol] 34.4 g/dL Normal 32-36 [facility] Comment on above: Performed By: #### C BCA ####[facility] ([id number])[address] [place] [place] [address] MCV (RBC) [Entitic vol] 89 fL Normal 80-100 [facility] Comment on above: Performed By: #### C BCA ####[facility] ([id number])[address] [facility] [place] [address] Monocytes (Bld) [#/Vol] 0.7 10*3/uL Normal 0-0.9 [facility] Comment on above: Performed By: #### C BCA ####[facility] ([id number])[address] [facility] [address] Monocytes/100 WBC (Bld) 6.4 % Normal [facility] Comment on above: Performed By: #### C BCA ####[facility] ([id number])[address] [facility] [address] Neutrophils/100 WBC (Bld) 84.7 % Normal [facility] Comment on above: Performed By: #### C BCA ####[facility] ([id number])[address] [place] [address] Platelet mean volume (Bld) [Entitic vol] 7.8 fL Normal 7-12 [facility] Comment on above: Performed By: #### C BCA ####[facility] ([id number])[address] [place] [address] Platelets (Bld) [#/Vol] 109 10*3/uL Low 150-450 [facility] Comment on above: Performed By: #### C BCA ####[facility] ([id number])[address] [place] [address] RBC COUNT 2.97 X10E12/L Low 3.80-5.20 [facility] Comment on above: Performed By: #### C BCA ####[facility] ([id number])[address] [place] [address] WBC (Bld) [#/Vol] 11.0 10*3/uL Normal 4.0-11.0 [facility] Comment on above: Performed By: #### C BCA ####[facility] ([id number])[address] [place] [address] 36on 05-12-2024 36 Call from Dania at [facility]. Pt to be discharged from [facility] tomorrow with our service resuming care. She will go home on Ceftaroline 600 mg q 8 hrs, Imipenem Cilastatin 1 G q 12 hrs and Amikacin 1375 mg three times per week. Confirmed these orders with Dr Lui and he agrees. EOT of all 3 is now 08/10 but he would like weekly Amikacin peaks and troughs for at least the first 2 weeks. Pt is expected to DC 05/13. Normal [facility] BASIC METABOLIC PANLon 05-12 Anion gap [Moles/Vol] 7 mmol/L Normal 5-15 [facility] Comment on above: Performed By: #### C BCA, BMP ####[facility] ([id number])[address] [place] [address] Calcium [Mass/Vol] 9.1 mg/dL Normal 8.5-10.5 [facility] Comment on above: Performed By: #### C BCA, BMP ####[facility] ([id number])[address] [place] [address] Chloride [Moles/Vol] 106 mmol/L Normal 98-109 [facility] Comment on above: Performed By: #### C BCA, BMP ####[facility] ([id number])[address] [facility] [place] [address] CO2 [Moles/Vol] 27 mmol/L Normal 22-32 [facility] Comment on above: Performed By: #### C BCA, BMP ####[facility] ([id number])[address] [facility] [place] [address] Creatinine [Mass/Vol] 0.63 mg/dL Normal 0.40-1.00 [facility] Comment on above: Result Comment: METH OD TRACEABLE TO IDMS STANDARD Performed By: #### C LUCIA, BMP ####[facility] ([id number])[address] [place] [address] eGFR (CKD-EPI) NON-RACE DEPENDENT >90 Normal >59 [facility] Comment on above: Result Comment: Repo rted eGFR is based on theCKD-EPI 2020 equation that doesnot use a race coefficient. Performed By: #### C BCA, BMP ####[facility] ([id number])[address] [place] [address] Glucose [Mass/Vol] 82 mg/dL Normal 65-99 [facility] Comment on above: Performed By: #### C BCA, BMP ####[facility] ([id number])[address] [place] [address] Potassium [Moles/Vol] 3.5 mmol/L Normal 3.5-5.0 [facility] Comment on above: Performed By: #### C BCA, BMP ####[facility] ([id number])[address] [place] [address] Sodium [Moles/Vol] 140 mmol/L Normal 134-146 [facility] Comment on above: Performed By: #### C BCA, BMP ####[facility] ([id number])[address] [place] [address] Urea nitrogen [Mass/Vol] 14 mg/dL Normal 5-23 [facility] Comment on above: Performed By: #### C BCA, BMP ####[facility] ([id number])[address] [facility] [place] [address] BONE MARROWon 05-12-2024 BONE MARROW SEE SEPARATE REPORT, REVIEWED BY PATHOLOGIST Normal [facility] Comment on above: Performed By: #### E XHR, 30061-4 ####[facility] ([id number])[address] [place] [address]#### [address]-6, [place] ####[facility] ([id number])2130 [facility], [address], [place] [address] CBC AND AUTO DIFFon 05-13-19 25 ABSOLUTE BASOPHIL 0.0 X10E9/L Normal 0.0-0.2 [facility] Comment on above: Performed By: #### C LUCIA, BMP ####[facility] ([id number])[address] [place] [address] ABSOLUTE NEUTROPHIL 0.9 X10E9/L Low 1.5-6.6 [facility] Comment on above: Performed By: #### C LUCIA, BMP ####[facility] ([id number])[address] [place] [address] Anisocytosis Ql (Bld) 2+ Abnormal NONE [facility] Comment on above: Performed By: #### C BCA, BMP ####[facility] ([id number])[address] [place] [address] Basophils/100 WBC (Bld) 2.0 % Normal [facility] Comment on above: Performed By: #### C BCA, BMP ####[facility] ([id number])[address] [place] [address] Eosinophils (Bld) [#/Vol] 0.1 10*3/uL Normal 0.0-0.4 [facility] Comment on above: Performed By: #### C BCA, BMP ####[facility] ([id number])[address] [place] [address] Eosinophils/100 WBC (Bld) 5.2 % Normal [facility] Comment on above: Performed By: #### C BCA, BMP ####[facility] ([id number])[address] [place] [address] Erythrocyte distribution width (RBC) [Ratio] 22.1 % High 11.5-15.0 [facility] Comment on above: Performed By: #### C BCA, BMP ####[facility] ([id number])[address] [place] [address] FRAGMENT 1+ Abnormal NONE [facility] Comment on above: Performed By: #### C BCA, BMP ####[facility] ([id number])[address] [place] [address] Hematocrit (Bld) [Volume fraction] 25.6 % Low 35-47 [facility] Comment on above: Performed By: #### C BCA, BMP ####[facility] ([id number])[address] [place] [address] Hemoglobin (Bld) [Mass/Vol] 8.7 g/dL Low 11.7-15.5 [facility] Comment on above: Performed By: #### C BCA, BMP ####[facility] ([id number])[address] [place] [address] Lymphocytes (Bld) [#/Vol] 0.6 10*3/uL Low 1.0-3.5 [facility] Comment on above: Performed By: #### C BCA, BMP ####[facility] ([id number])[address] [place] [address] Lymphocytes/100 WBC (Bld) 29.6 % Normal [facility] Comment on above: Performed By: #### C BCA, BMP ####[facility] ([id number])[address] [place] [address] MCH (RBC) [Entitic mass] 30.3 pg Normal 27-34 [facility] Comment on above: Performed By: #### C BCA, BMP ####[facility] ([id number])[address] [place] [address] MCHC (RBC) [Mass/Vol] 34.1 g/dL Normal 32-36 [facility] Comment on above: Performed By: #### C LUCIA, BMP ####[facility] ([id number])[address] [facility] [place] [address] MCV (RBC) [Entitic vol] 89 fL Normal 80-100 [facility] Comment on above: Performed By: #### C LUCIA, BMP ####[facility] ([id number])5200 [facility] [place] [address] Monocytes (Bld) [#/Vol] 0.4 10*3/uL Normal 0-0.9 [facility] Comment on above: Performed By: #### C LUCIA, BMP ####[facility] ([id number])5200 [facility] [place] [address] Monocytes/100 WBC (Bld) 18.4 % Normal [facility] Comment on above: Performed By: #### C LUCIA, BMP ####[facility] ([id number])5200 [facility] [place] [address] Neutrophils/100 WBC (Bld) 44.8 % Normal [facility] Comment on above: Performed By: #### C LUCIA, BMP ####[facility] ([id number])5200 [facility] [place] [address] OVALOCYTE 1+ Abnormal NONE [facility] Comment on above: Performed By: #### C LUCIA, BMP ####[facility] ([id number])5200 [facility] [place] [address] Platelet mean volume (Bld) [Entitic vol] 6.9 fL Low 7-12 [facility] Comment on above: Performed By: #### C LUCIA, BMP ####[facility] ([id number])5200 [facility] [place] [address] Platelets (Bld) [#/Vol] 97 10*3/uL Low 150-450 [facility] Comment on above: Performed By: #### C LUCIA, BMP ####[facility] ([id number])5[address] [facility] [place] [address] RBC COUNT 2.88 X10E12/L Low 3.80-5.20 [facility] Comment on above: Performed By: #### C BCA, BMP ####[facility] ([id number])5200 [facility] [place] [address] WBC (Bld) [#/Vol] 2.0 10*3/uL Low 4.0-11.0 [facility] Comment on above: Performed By: #### C BCA, BMP ####[facility] ([id number])5200 [place] [address] DNA and RNA Extract and Hold on 05-12-2024 DNA and RNA Extract and Hold SEE COMMENTS 05/14/2024 04:26 PM Normal [facility] Comment on above: Result Comment: NOTE Test Result Flag Unit RefValue DNA and RNA Extract and Hold Specimen Type EDTA BONE MARROW DNA/RNA Extract and Hold Result see method DNA/RNA Extraction Performed ADDITIONAL INFORMATION DNA and total RNA were extracted from the sample and will be stored cryopreserved for 1 year from the extraction date. To request specific molecular test(s) from the [facility]'s test catalog, please contact [facility] at [phone]. Method summary: DNA and RNA were extracted from the received specimen and stored at -80 C. This test was developed and its performance characteristics determined by [facility] in a manner consistent with CLIA requirements. This test has not been cleared or approved by the U.S. Food and Drug Administration. Test Performed by: [address] [address] Pulper Operator: Colten Sosa Ph.D.; CLIA# [id number] Performed By: #### Michaelle X, 97133-1 ####[facility] ([id number])5200 [place] [address]#### [address], [place] ####[facility] ([id number])[address] [address] Flow cytometry specialist re view Fredrick (Unsp spec) [Interp]on 05-12-2024 FLOW CYTOMETRY BM SEE SEPARATE REPORT, REVIEWED BY PATHOLOGIST Normal [facility] Comment on above: Performed By: #### Michaelle XHR, 81441-3 ####[facility] ([id number])5[address] [place] [address]#### [address]-0, [place] ####[facility] ([id number])[address] [address] IR BX AND ASP BONE MARROW SN GL OR MULTon 05-12-2024 IR BX AND ASP BONE MARROW SNGL OR MULT [facility] Karyotype Nom (BM)on 025 CHROMOSOME BONE MARROW SEE COMMENTS 05/20/2024 09:03 AM [facility] Comment on above: Result Comment: NOTE Test Result Flag Unit RefValue Chromosomes, Hematologic, BM Result Summary Normal Interpretation See Note No clonal abnormality was apparent. Additional cytogenetic studies are reported separately. Result 46,XX[20] Reason for Referral pancytopenia with low IGG Specimen Bone Marrow Method Culture without mitogens Banding Method See Note Band Resolution: 400-549 Stain Name Cells Analyzed Cells Karyograms Counted Prepared GTL 20 0 2 Total 20 0 2 Ross to Stain Name: GTL=G-banding; QFQ=Q-banding; DAPI=DAPI-staining; CBL=C-banding; AGNOR=Silver-staining; NON=Non-banded The sum of Cells Analyzed and Cells Counted equals the total cells examined. Additional Information See Note A portion of the testing process was performed at [facility] site 245930, [id number]. Released By Cady Barillas, Ph.D. Test Performed by: [address] [address] Pulper Operator: Colten Sosa Ph.D.; IA# [id number] Performed By: #### Michaelle X, 77752-0 ####[facility] ([id number])[facility] [place] [address]#### [address]-9, [place] ####[facility] ([id number])[address] [place] [address], [place] [id number] Laboratory comment Fredrick (Repo rt)on 05-12-2024 UNLISTED LAB TEST Sent to reference lab [facility] Comment on above: Performed By: #### Michaelle X, 29662-8 ####[facility] ([id number])[facility] [place] [id number]#### [address]-5, [place] ####[facility] ([id number])[address] [facility] [address] [place] [address] DRYBRANCH GENERIC ORDERon 025 TEST NAME MPNR MYELOPROLIFERATIVE NEOPLASM JAK2 V617F WITH REFLEX TO CALR AND MPL VARIES Normal [facility] TEST RESULT SEE COMMENTS 05/30/2024 10:27 AM [facility] Comment on above: Result Comment: NOTE Test Result Flag Unit RefValue MPN (JAK2 V617F, CALR, MPL) Reflex MPNR Result see interpretation Final Diagnosis See Note Bone marrow, JAK2 V617F mutation analysis: Negative for JAK2 V617F. Method summary - JAK2 V617F analysis: Quantitative, allele-specific polymerase chain reaction (PCR) assay was performed using extracted genomic DNA to evaluate for the point mutation causing JAK2 V617F. The analytic sensitivity of this assay has been determined at 0.06%. Bone marrow, CALR mutation analysis, exon 9. Negative. No deletion or insertion was detected in CALR, exon 9. Method summary - CALR: Exon 9 of CALR was amplified from genomic DNA by polymerase chain reaction (PCR). The size of the PCR product was analyzed by capillary electrophoresis. The analytic sensitivity of this assay is approximately 6% for the majority of CALR mutations and is approximately 20% for the rare type 1-bp deletion. Bone marrow, MPL exon 10 mutation analysis: Negative. No mutation was detected in MPL, exon 10. Method summary - MPL exon 10 mutation analysis: Genomic DNA was extracted and Yumi sequencing used to evaluate for mutations in MPL, exon 10. The sensitivity of this assay is approximately 20%, such that samples containing lower percentages of mutated DNA will appear negative. Comment: Negative results for WTG0U000G, CALR exon 9, and MPL exon 10 mutations do not exclude the diagnosis of a myeloproliferative neoplasm. Correlation with clinical and morphologic finding is recommended for a definitive diagnosis. Samples containing mutations in these genes at levels below the analytical sensitivity of each assay may not be detected by these methods. If there are persistent unexplained erythrocytosis, JAK2 Exon 12 analysis could be considered (JAKXB or JAKXM) to rule out polycythemia vera (PV). Signing Pathologist: Raymond Leo D.O., M.S. ADDITIONAL INFORMATION This test was developed and its performance characteristics determined by [facility] in a manner consistent with CLIA requirements. This test has not been cleared or approved by the U.S. Food and Drug Administration. Test Performed by: [facility] - [address] [address] Pulper Operator: Colten Sosa Ph.D.; CLIA# [id number] MYELODYSPLASTIC SYNDROME (MD Guzman),DIAGNOSTIC FISH, VARIESon 05-12-2024 MYELODYSPLASTIC SYNDROME (MDS),DIAGNOSTIC FISH, VARIES SEE COMMENTS 05/27/2024 03:45 PM Normal [facility] Comment on above: Result Comment: NOTE Test Result Flag Unit RefValue MDS, Diagnostic FISH Result Summary Normal Interpretation See Note The result is within normal limits for the MDS FISH panel. Chromosome studies are normal (reported separately). Result Table See Note Abnormality Name Result Abn% Cutoff% inv(3) RPN1/MECOM fusion Normal <4.0 -5q31(T6P449x3,EGR1x1) Normal <12.0 -5(R7X671,EGR1)x1 Normal <10.0 -7q31(D7Z1x2,C2X947g2) Normal <12.0 -7(D7Z1,U4J118)x1 Normal <10.0 +8(D8Z2,MYC)x3 Normal <7.0 -17p13.1(TP53x1,V26V7c9) Normal <15.0 -17(TP53,D17Z1)x1 Normal <10.0 -20q12(F38T817e2,67bttaj3) Normal <12.0 Result See Note Interphase FISH is normal for all loci studied. Reason for Referral pancytopenia with low IGG Specimen Bone Marrow Method See Note Locus and probes [Strategy;#Nuclei;Vendor] 3q21(RPN1[GATA2]),3q26.2(MECOM) [DFISH;200;LDT] 5p15.2(G1C376),5q31(EGR1) [COPY#;100;AM] 7CEN(D7Z1),7q31(X8W381) [COPY#;100;AM] 8CEN(D8Z2),8q24.1(MYC) [COPY#;100;AM] 17p13(TP53),17CEN(D17Z1) [COPY#;100;AM] 20q12(K43P906),20qter [COPY#;100;AM/C] Probe strategies include: DFISH=dual color, double fusion; COPY#=region gain and loss. Scoring Method: Manual Probe vendors include: LDT = [facility] Developed AM = [employer] ([place], [place]) C = [employer] ([place], [place]) Additional Information See Note A portion of the testing process was performed at [facility] site #[id number]. Disclaimer See Note Applicable to Analyte Specific Reagent (ASR) and Laboratory Developed Tests (LDT). This test was developed and its performance characteristics determined by [facility] in a manner consistent with CLIA requirements. It has not been cleared or approved by the U.S. Food and Drug Administration. This FISH test does not rule out other chromosome abnormalities. Released By Aron Henderson M.D. Test Performed by: [address] [address] Pulper Operator: Colten Sosa Ph.D.; CLIA# [id number] Myeloid Neoplasms, NGSon Additional Notes See Note Normal [facility] Comment on above: Result Comment: NOTE NoneA portion of the testing process was performed at [facility] [employer] site [id number], [id number]. Clinical Trials See Note Normal [facility] Comment on above: Result Comment: NOTE Information regarding possible clinical trials for thispatient can be found at the following sites:1). ClinicalTrials.gov:http://clinicaltrials.gov/ct2/search/advanced 2). [facility]:http://www.[place].[facility]/research/clinical-trials3). National Cancer [place]:http://www.cancer.gov/clinicaltrials/search4). The Leukemia and Lymphoma Society's Clinical TrialSupport Centerhttps://www.hematology.org/education/clinicians/clinical-t mlcc-juuecmm-xnsvtf Disclaimer See Note Normal [facility] Comment on above: Result Comment: NOTE CLINICAL DISCLAIMERThe finding of a genetic alteration does not necessarilyindicate the presence of a myeloid neoplasm. Some apparentmutations classified as VUS may represent very lowpopulation frequency polymorphisms. Hematopoietic cells insome individuals may have age-related genetic alterationsassociated with myeloid neoplasms in the absence of ahematologic malignancy (clonal hematopoiesis ofindeterminate potential, CHIP, also known as age-relatedclonal hematopoiesis, ARCH). In addition, patients withunexplained cytopenias may also harbor similar myeloidneoplasm-associated gene mutations (clonal cytopenias ofuncertain significance, CCUS) [PMIDs: 76953364, [id number],[id number], and 49072385]. Distinction between CHIP or CCUSand a myeloid malignancy requires correlation withclinical, pathologic, and other laboratory findings. Priortreatment for hematologic malignancy could affect theresults obtained in this assay. In particular, priorallogeneic hematopoietic stem cell transplant (HSCT) maycause difficulties in resolving somatic or polymorphicalterations, or in assigning variant calls correctly todonor and recipient fractions, if pertinent clinical orlaboratory information (e.g. chimerism engraftment status)is not provided. This assay does not distinguish betweensomatic and germline alterations in analyzed gene regions,particularly with VAF near 50% or 100%. If nucleotidealterations in genes associated with germline mutationsyndromes are present and there is also a strong clinicalsuspicion or family history of malignant diseasepredisposition, additional genetic testing and appropriatecounseling may be indicated. This report interpretation isbased on current medical and scientific literature, butclinical significance may not be completely established forall reported target gene abnormalities identified.Correlation with clinical, histopathologic and additionallaboratory findings is required for final interpretation ofthese results. The final interpretation of results forclinical management of the patient is the responsibility ofthe managing physician.TECHNICAL DISCLAIMERThe depth of sequencing coverage may be variable for sometarget regions, but assay performance below the minimumacceptable criteria, or for failed regions are noted.Analysis of rare (low allele frequency) polymorphisms maybe problematic in some cases. A low tumor cell percentagein the sample may affect the true mutation VAF and/orsensitivity. Suboptimal-performing regions (i.e. less thanthe expected minimum depth of coverage) may affect analyticsensitivity for detecting lower level mutations. This is aqualitative test. The variant read fractions are providedfor information only and represent a relative proportion ofmutated alleles, but do not indicate a measure ofanalytical sensitivity for the given genes; assaysensitivity is as stated in the method summary. Somegenetic or genomic alterations, such as very largeinsertion/deletion events, copy number alterations (PASSEMENTERIE WORKER)and gene translocation events are not detected by thisassay. Indication for test PANCYTOPENIA Normal [facility] Interpretation See Note Normal [facility] Comment on above: Result Comment: NOTE No pathogenic genetic alteration is detected in the listedgene regions. This finding does not exclude the presence ofa genetic alteration occurring at an allele frequency belowour established detection limit of 2-4%, or other geneticalterations present in untested gene regions. Method Summary See Note Normal [facility] Comment on above: Result Comment: NOTE DNA is extracted from peripheral blood or bone marrowspecimens. Library preparation for Next GenerationSequencing (NGS) is performed followed by probehybridization and capture. Sequencing of the final samplelibrary is performed on a NGS instrument. Followingbioinformatic processing of the sequencing data, thesequencing results are interpreted to provide a finalclinical report. Genomic alterations are called accordingto human genome reference build GRCh37 (hg19).Performance characteristics of NGS panel:Single base substitutions: accuracy >99%; eemnzkwdpfalasg640% (intra- and interassay); sensitivity 2-4% variantallele fraction with a minimum depth of coverage of 500X.Small insertion/deletion events (up to 500 bp): accuracy>99%; reproducibility 100% (intra- and interassay);sensitivity 2-4.99% variant allele fraction with a minimumdepth of coverage of 500X. Larger single geneinsertion/deletion events with sizes between > or = 501 bpand < or = 5 kb with a variant allele fraction > or = 5%and minimum depth of coverage of 500X* will be reported.Variants involving multiple genes or single gene events >or = 1 kb with variant allele fractions between 2-5% willnot be reported. Events > or = 5 kb with a variant allelefraction > or = 5% within a single gene may be identifiedand if present, general information on gene, chromosome,and event type will be provided in the Additional Notessection, with suggestion for confirmatory testing.This test was developed and its performance characteristicsdetermined by [facility] in a manner consistent with CLB[facility] Westequirements. This test has not been cleared or approved bythe U.S. Food and Drug Administration. *Some genetic orgenomic alterations such as very large insertion/deletionevents, copy number alterations (PASSEMENTERIE WORKER) and genetranslocation events are not detected by this assay. NGSHM Result See Interpretation Normal [facility] OncoHeme Panel Gene List See Note Normal [facility] Comment on above: Result Comment: NOTE ANKRD26 (NM_014915.2) 5'UTR, start at c.-172, exons 1-4,ASXL1 (NM_015338.5) exons 10-13, BCOR (NM_001123385.1)exons 4-15, BCORL1 (NM_001184772.2) exons 1-13, BRAF(NM_004333.4), exons 11 and 15, CALR (NM_004343.3) exon 9,CBL (NM_005188.3) intron 7 last 100bp before start of exon8, exon 8, intron 8, and exon 9, CEBPA (NM_004364.4) exon1, CSF3R (NM_000760.3) exons 4, 13-14 and 17, DDX41(NM_016222.2) exons 1-17, DNMT3A (NM_022552.4) exons 8-23,ELANE (NM_001972.2) exons 1-5, ETNK1 (NM_018638.4) exons2-5, ETV6 (NM_001987.4) exons 3-8, EZH2 (NM_004456.4) exons2-20, FLT3 (NM_004119.2) exons 14-20 and intron 14, GATA1(NM_002049.3) exons 2 and 4, start at c.--30 before exon2, GATA2 (NM_032638.4) exons 1-6, intron 4, c.1017+1 -1017+870, IDH1 (NM_005896.3) exons 4, 6-8, IDH2(NM_002168.3) exons 3-4, 6-8, JAK2 (NM_004972.3) -61, KDM6A (UTX) (NM_021140.3) exons 1-29, KIT(NM_000222.2) exons 8-11 and 17, KRAS (NM_033360.3) exons2-4, MPL (NM_005373.2) exons 1-12, NF1 (NM_001042492.2),exons 1-58, NPM1 exons 9-11, intron 10 start 3 bp beforeexon 11, NRAS (NM_002524.4) exons 2-4, PHF6(NM_001015877.1) exons 2-10, PPM1D (NM_003620.3) exons 1-6,PTPN11 (NM_002834.3) exons 3-4 and 12-13, RAD21(NM_006265.2) exons 1-2, 4-7, 9-11, 13-14, intron 9 start 3bp before exon 10, RUNX1 (NM_001754.4) exons 1-9, intron 7start 13 bp before exon 8, SETBP1 (NM_015559.2) partialexon 4; amino acids 400 - 950, SH2B3 (LNK) (NM_005475.2)exon 2-8, SF3B1 (NM_012433.2) exons 13-16, SMC3(NM_005445.3) exons 7-8, 13, 17, 19, 21, and 29, SRSF2(NM_003016.4) exons 1-2, STAG2 (NM_001042750.1) exons 4-34,exons 12 and 17 start at -3 in preceding introns, STAT3(NM_139276.2), exons 2-24, TERT (NM_198253.2) exons 2-16,TET2 (NM_001127208.2) exons 3-11, TP53 (NM_000546.4) exons4-11, U2AF1 (NM_001025203.1) exons 2, 6, and 8, UBA1(NM_003334.3) exons 2-26, WT1 (NM_024426.2) exons 1-10, andZRSR2 (NM_005089.3) exons 1-11.Unless otherwise noted, intronic coverage surrounding exonsis +/-10 bp.For some genes, the transcript IDs used in this analysismay differ from those present in cancer mutation databasesor other similar sources.Variants will be reported out using HGVS nomenclature perthe documentation version available at varnomen.hgvs.org atthe time of the report. Path Mutations Detected See Note [facility] Comment on above: Result Comment: NOTE None. See below for Variants of Unknown Significance andAdditional Notes. Please see the section of Panel GeneList below for the complete list of genes tested. Reviewed By See Note [facility] Comment on above: Result Comment: NOTE Signing Pathologist: Mary Morin M.D.Test Performed by:[address] Director: Colten Sosa Ph.D.; CLIA# [id number] Variants of Unknown Significance See Note [facility] Comment on above: Result Comment: NOTE 1) ASXL1: Chr20(GRCh37):g.49202512S>T;NM_015338.5(ASXL1):c.1928G>T; p.Acv145Jme (53%). Thisalteration is present in the gnomAD population databasewith an overall frequency 0.02%. However, missense changesin ASXL1 are not consistent with jsrc-xd-zsifpsan mechanismof disease (Roosevelt juarez al., 2012, [id number]). While thefunction of this variant is not well documented(pubMed.gov, last accessed 04/2024), our experiencesuggests this variant may represent a likely benignpolymorphic variant in this case.The VUS variants listed here (with approximate variantallele %) are not sufficiently characterized in the currentliterature and are therefore of uncertain clinicalsignificance at this time. They are reported here forfuture reference in the event they become clinicallysignificant in the light of new scientific data. Amikacin trough [Mass/Vol]on 05-11-2024 Amikacin, Trough, S <0.8 Normal <8.0 [facility] Comment on above: Result Comment: NOTE Test Performed by:[address] [address]Exb Director: Colten Sosa Ph.D.; CLIA# [id number] Performed By: #### 3 321-7 ####[facility] ([id number])5200 [place] [address] BASIC METABOLIC PANLon 05-11 Anion gap [Moles/Vol] 5 mmol/L Normal 5-15 [facility] Comment on above: Performed By: #### B ADARSH, CBCA ####[facility] ([id number])5200 [place] [address] Calcium [Mass/Vol] 8.9 mg/dL Normal 8.5-10.5 [facility] Comment on above: Performed By: #### B MP, CBCA ####[facility] ([id number])5[address] [place] [address] Chloride [Moles/Vol] 106 mmol/L Normal 98-109 [facility] Comment on above: Performed By: #### B MP, CBCA ####[facility] ([id number])5200 [place] [address] CO2 [Moles/Vol] 28 mmol/L Normal 22-32 [facility] Comment on above: Performed By: #### B MP, CBCA ####[facility] ([id number])5[address] [facility] [place] [address] Creatinine [Mass/Vol] 0.60 mg/dL Normal 0.40-1.00 [facility] Comment on above: Result Comment: METH OD TRACEABLE TO IDMS STANDARD Performed By: #### B ADARSH CBCA ####[facility] ([id number])5[address] [facility] [place] [address] eGFR (CKD-EPI) NON-RACE DEPENDENT >90 Normal >59 [facility] Comment on above: Result Comment: Repo rted eGFR is based on theCKD-EPI 2020 equation that doesnot use a race coefficient. Performed By: #### B ADARSH CBCA ####[facility] ([id number])5200 [facility] [place] [address] Glucose [Mass/Vol] 84 mg/dL Normal 65-99 [facility] Comment on above: Performed By: #### B ADARSH CBCA ####[facility] ([id number])5[address] [facility] [place] [address] Potassium [Moles/Vol] 3.7 mmol/L Normal 3.5-5.0 [facility] Comment on above: Performed By: #### B ADARSH CBCA ####[facility] ([id number])5200 [place] [address] Sodium [Moles/Vol] 139 mmol/L Normal 134-146 [facility] Comment on above: Performed By: #### B ADARSH CBCA ####[facility] ([id number])5200 [place] [address] Urea nitrogen [Mass/Vol] 14 mg/dL Normal 5-23 [facility] Comment on above: Performed By: #### B ADARSH CBCA ####[facility] ([id number])5200 [facility] [place] [address] CBC AND AUTO DIFFon 03-12-20 25 ABSOLUTE BASOPHIL 0.0 X10E9/L Normal 0.0-0.2 [facility] Comment on above: Performed By: #### B MP, CBCA ####[facility] ([id number])5200 [place] [address] ABSOLUTE NEUTROPHIL 0.8 X10E9/L Low 1.5-6.6 [facility] Comment on above: Performed By: #### B MP, CBCA ####[facility] ([id number])[address] [place] [address] Basophils/100 WBC (Bld) 1.7 % Normal [facility] Comment on above: Performed By: #### B MP, CBCA ####[facility] ([id number])5[address] [place] [address] Eosinophils (Bld) [#/Vol] 0.1 10*3/uL Normal 0.0-0.4 [facility] Comment on above: Performed By: #### B MP, CBCA ####[facility] ([id number])5[address] [place] [address] Eosinophils/100 WBC (Bld) 7.5 % Normal [facility] Comment on above: Performed By: #### B MP, CBCA ####[facility] ([id number])5200 [place] [address] Erythrocyte distribution width (RBC) [Ratio] 21.3 % High 11.5-15.0 [facility] Comment on above: Performed By: #### B MP, CBCA ####[facility] ([id number])5200 [place] [address] Hematocrit (Bld) [Volume fraction] 24.9 % Low 35-47 [facility] Comment on above: Performed By: #### B MP, CBCA ####[facility] ([id number])5200 [place] [address] Hemoglobin (Bld) [Mass/Vol] 8.5 g/dL Low 11.7-15.5 [facility] Comment on above: Performed By: #### B MP, CBCA ####[facility] ([id number])5200 [place] [address] Lymphocytes (Bld) [#/Vol] 0.5 10*3/uL Low 1.0-3.5 [facility] Comment on above: Performed By: #### B MP, CBCA ####[facility] ([id number])5200 [place] [address] Lymphocytes/100 WBC (Bld) 28.8 % Normal [facility] Comment on above: Performed By: #### B MP, CBCA ####[facility] ([id number])5[address] [place] [address] MCH (RBC) [Entitic mass] 30.2 pg Normal 27-34 [facility] Comment on above: Performed By: #### B MP, CBCA ####[facility] ([id number])5[address] [place] [address] MCHC (RBC) [Mass/Vol] 34.2 g/dL Normal 32-36 [facility] Comment on above: Performed By: #### B MP, CBCA ####[facility] ([id number])5200 [place] [address] MCV (RBC) [Entitic vol] 89 fL Normal 80-100 [facility] Comment on above: Performed By: #### B MP, CBCA ####[facility] ([id number])5[address] [place] [address] Monocytes (Bld) [#/Vol] 0.3 10*3/uL Normal 0-0.9 [facility] Comment on above: Performed By: #### B MP, CBCA ####[facility] ([id number])5[address] [place] [address] Monocytes/100 WBC (Bld) 15.4 % Normal [facility] Comment on above: Performed By: #### B MP, CBCA ####[facility] ([id number])[address] [place] [address] Neutrophils/100 WBC (Bld) 46.6 % Normal [facility] Comment on above: Performed By: #### B MP, CBCA ####[facility] ([id number])5[address] [place] [address] OVALOCYTE 1+ Abnormal NONE [facility] Comment on above: Performed By: #### B MP, CBCA ####[facility] ([id number])5[address] [place] [address] Platelet mean volume (Bld) [Entitic vol] 7.0 fL Normal 7-12 [facility] Comment on above: Performed By: #### B MP, CBCA ####[facility] ([id number])[address] [place] [address] Platelets (Bld) [#/Vol] 94 10*3/uL Low 150-450 [facility] Comment on above: Performed By: #### B MP, CBCA ####[facility] ([id number])5[address] [place] [address] RBC COUNT 2.82 X10E12/L Low 3.80-5.20 [facility] Comment on above: Performed By: #### B MP, CBCA ####[facility] ([id number])5[address] [place] [address] WBC (Bld) [#/Vol] 1.8 10*3/uL Low 4.0-11.0 [facility] Comment on above: Performed By: #### B MP, CBCA ####[facility] ([id number])5[address] [place] [address] DRYBRANCH GENERIC ORDERon 025 TEST NAME NAIMA AMIKACIN PEAK Normal [facility] Comment on above: Performed By: #### G O ####[facility] ([id number])5[address] [place] [address] TEST RESULT SEE COMMENTS 05/12/2024 03:14 PM Abnormal [facility] Comment on above: Result Comment: NOTE Test Result Flag Unit RefValue Amikacin, Peak, S 62.8 H mcg/mL 20.0 - 35.0 Toxic:>40.0 mcg/mL Test Performed by: [place] [address] Pulper Operator: Colten Sosa Ph.D.; CLIA# [id number] Performed By: #### G O ####[facility] ([id number])5[address] [place] [address] CBC AND AUTO DIFFon 05-11-19 25 ABSOLUTE BASOPHIL 0.0 X10E9/L Normal 0.0-0.2 [facility] Comment on above: Performed By: #### C BCA ####[facility] ([id number])5[address] [place] [address] Band form neutrophils/100 WBC (Bld) 1.0 % Normal [facility] Comment on above: Performed By: #### C BCA ####[facility] ([id number])5[address] [place] [address] Basophils/100 WBC (Bld) 1.0 % Normal [facility] Comment on above: Performed By: #### C BCA ####[facility] ([id number])5[address] [place] [address] Eosinophils (Bld) [#/Vol] 0.2 10*3/uL Normal 0.0-0.4 [facility] Comment on above: Performed By: #### C BCA ####[facility] ([id number])5[address] [place] [address] Eosinophils/100 WBC (Bld) 9.0 % Normal [facility] Comment on above: Performed By: #### C BCA ####[facility] ([id number])[address] [place] [address] Erythrocyte distribution width (RBC) [Ratio] 21.6 % High 11.5-15.0 [facility] Comment on above: Performed By: #### C BCA ####[facility] ([id number])5[address] [place] [address] Hematocrit (Bld) [Volume fraction] 23.4 % Low 35-47 [facility] Comment on above: Performed By: #### C BCA ####[facility] ([id number])5200 [facility] [place] [address] Hemoglobin (Bld) [Mass/Vol] 7.8 g/dL Low 11.7-15.5 [facility] Comment on above: Performed By: #### C BCA ####[facility] ([id number])5200 [facility] [place] [address] HYPOCHROMIA 1+ Abnormal NONE [facility] Comment on above: Performed By: #### C BCA ####[facility] ([id number])5[address] [facility] [place] [address] Lymphocytes (Bld) [#/Vol] 0.4 10*3/uL Low 1.0-3.5 [facility] Comment on above: Performed By: #### C BCA ####[facility] ([id number])5200 [facility] [place] [address] Lymphocytes/100 WBC (Bld) 24.0 % Normal [facility] Comment on above: Performed By: #### C BCA ####[facility] ([id number])5200 [facility] [place] [address] MCH (RBC) [Entitic mass] 29.8 pg Normal 27-34 [facility] Comment on above: Performed By: #### C BCA ####[facility] ([id number])5[address] [facility] [place] [address] MCHC (RBC) [Mass/Vol] 33.4 g/dL Normal 32-36 [facility] Comment on above: Performed By: #### C BCA ####[facility] ([id number])5[address] [place] [address] MCV (RBC) [Entitic vol] 89 fL Normal 80-100 [facility] Comment on above: Performed By: #### C BCA ####[facility] ([id number])5[address] [place] [address] Monocytes (Bld) [#/Vol] 0.2 10*3/uL Normal 0-0.9 [facility] Comment on above: Performed By: #### C BCA ####[facility] ([id number])5200 [facility] [place] [address] Monocytes/100 WBC (Bld) 10.0 % Normal [facility] Comment on above: Performed By: #### C BCA ####[facility] ([id number])5[address] [facility] [place] [address] Neutrophils (Bld) [#/Vol] 1.0 10*3/uL Low 1.5-6.6 [facility] Comment on above: Performed By: #### C BCA ####[facility] ([id number])5[address] [facility] [place] [address] Platelet mean volume (Bld) [Entitic vol] 6.9 fL Low 7-12 [facility] Comment on above: Performed By: #### C BCA ####[facility] ([id number])5[address] [facility] [place] [address] Platelets (Bld) [#/Vol] 81 10*3/uL Low 150-450 [facility] Comment on above: Performed By: #### C BCA ####[facility] ([id number])5[address] [facility] [place] [address] POLYCHROMASIA 1+ Abnormal NONE [facility] Comment on above: Performed By: #### C BCA ####[facility] ([id number])5[address] [facility] [address] RBC COUNT 2.63 X10E12/L Low 3.80-5.20 [facility] Comment on above: Performed By: #### C BCA ####[facility] ([id number])5[address] [place] [address] SEG NEUTROPHIL 55.0 % Normal [facility] Comment on above: Performed By: #### C BCA ####[facility] ([id number])5[address] [place] [address] WBC (Bld) [#/Vol] 1.8 10*3/uL Low 4.0-11.0 [facility] Comment on above: Performed By: #### C BCA ####[facility] ([id number])5[address] [place] [address] Surgical Pathologyon 025 Surgical Pathology Normal [facility] Comment on above: Result Comment: [facility] [address] [place] [address] Bone Marrow ConsultationPatient Name:IKE FLANNERY:1970 (Age: 53)Gender:FTaken:05/10/2024Reported:05/18/2024Physician(s):Kaye Kulkarni [facility] ([phone])Copy To:Baljinder Jones, [facility] Clinicession #:[id number]. Rec. #:[id number]: #[id number] Pathologic Diagnosis1, 2). 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 These are required for accurate categorization and a definitive diagnosis. Report Electronically Signed Outrxd/05/18/2024Reece Gross MD Flow Cytometry-Surg/BM/NG Date Reported: 05/18/2024Mild increase in marrow blasts.Flow cytometric analysis of the marrow aspirate cells demonstrates maturing hematopoietic elements. Blasts are slightly increased on CD45/side scatter analysis or CD34 staining and comprise of approximately 2 to 4% of total events. No aberrant patterns of antigen acquisition are identified on maturing myeloid cells.[place] on the lymphoid population demonstrates a mixed population of phenotypically unremarkable T-cells, polyclonal B-cells, and natural killer cells, without a detectable monoclonal population. No significant plasma cell population is identified.Immunophenotyping antibodies tested: CD2, CD3, CD4, CD5, CD7, CD8, CD10, CD13, CD16, CD19, CD20, CD23, CD33, CD34, CD38, CD43, CD45, CD56, CD117, CD123, CD138, TRCB1, [place], and Lambda.Immunophenotyping Comment:Immunophenotyping has been used in this diagnostic evaluation. This test was developed and its performance characteristics determined by the [facility]. It has not been cleared or approved by the U.S. Food and Drug Administration. The FDA has determined that such clearance or approval is not necessary. This test is used for clinical purposes. It should not be regarded as investigational or for research. This laboratory is certified under the Clinical Laboratory Improvement Amendments of 1988 ( CLIA ) as qualified to perform high-complexity clinical testing.Electronically Signed OutReece Gross MDInterpretation performed at [employer], [address] [place] [address], License number: [id number].Clinical HistoryPancytopenia with low IGG.Gross Description1. Received in B+ labeled ALMA DELIA, right iliac crest clot is red-brown clotted hemorrhagic material, 1.1 x 0.4 x 0.2 cm in aggregate. The specimen is entirely submitted in a single cassette. (1, ns, [id number], m6.1) MG2. Received in B+ labeled [place] DELIA, right iliac crest core is a buckley-mahmood cylindrical core segment of bone, 2.1 cm in length by 0.2 cm in diameter, admixed with reddish-brown hemorrhagic material aggregating to 0.2 x 0.1 x 0.1 cm. The bone is submitted in cassette A after decalcification in [facility]. (1, ns, [id number], m6.1) [facility]/05/12/2024SANMicroscopic FindingsANATOMIC SITE: 1. Right Iliac Crest aspirate and Clot 2. Right Iliac crest Core biopsyCBC: WBC = 2.0 X 10E9/L RBC = 2.88 X 10E12/L HGB = 8.7 g/dL HCT = 25.6% MCV = 88.8 fL PLATELETS = 97 X 10E9/LBLOOD SMEAR: WBC - White blood cells are decreased in number with a neutrophilic predominance. No increase in blasts seen. No dysplastic changes are seen in the neutrophils. No abnormal lymphocytes present. RBC -RBCs are decreased in number, and are normochromic and normocytic, with increased anisopoikilocytosis. Circulating NRBCs are not seen. Rouleaux formation is not present. PLT -Platelet count is decreased in number, and most platelets are normal in morphology.MARROW ASPIRATE:Adequacy: Adequate for evaluation with numerous cellular spicules.Myeloid series: Myeloid series show slight left shifted maturation maturation. Blasts are not increased.Erythroid series: Erythroid series is normal in proportion and show normoblastic maturation. Dysplasia is not present.Megakaryocytes: Megakaryocytes are increased in number. A subset of megakaryocytes appear dysplastic with branched nuclear lobation; minority are hypolobated.Lymphocytes and plasma cell: Are not increased.MARROW DIFFERENTIAL: A 300 cell differential count is performed. Blasts = 2% Promyelocytes = 8% Myelocytes = 12% Metamyelocytes = 15% Segs and Bands = 20% RBC precursors = 19% Lymphocytes = 11% Plasma cells = 1% Monocytes = 9% Eosinophils = 2% Basophils = 1%M:E ratio: 3MARROW BIOPSY/CLOT SECTION:Adequacy: Adequate for evaluation with an adequate (>15mm) core biopsy length. Clot sections show evaluable marrow spicules.Cellularity: 50-55%Myeloid series: Myeloid series is increased in proportion and show full-spectrum maturation. Blasts are not increased.Erythroid series: Erythroid series is normal in proportion and show normoblastic maturation. Dysplasia is not present.Megakaryocytes: The subset of megakaryocytes show abnormal maturation. Dysplastic forms are present with hypolobation and branch nuclear lobes. Loose clusters are seen; tight clusters are not seen.Interstitial lymphoid aggregates are identified, favor reactive.Other cells: Atypical plasma cell aggregates or metastatic carcinoma is not present.Trabecular bone: Normal in appearance.IRON STAIN: Prussian blue stain for iron reveals increased storage iron and sideroblastic iron. Ring sideroblasts are present (15-20%).IMMUNOHISTOCHEMICAL STAINS CD34 highlights less than 2% blasts and CD117 highlights approximately 2 to 3% blasts.Specimen(s) Received1: Right iliac crest aspirate2: Right iliac crest biopsyFee Codes(s):1; 74186, 95106, 82396, 19992, 405088; 81700, 83884, 80049, 26648 36on 05-09-2024 36 Tia has chiquis admitted at [facility] and followed by Dr Noguera. I gave ok to continue Amikacin at discharge to [facility] as Gino Flower had messaged Catarina here. Normal [facility] Amikacin trough [Mass/Vol]on 05-09-2024 Amikacin, Trough, S 17.7 mcg/mL High <8.0 [facility] Comment on above: Result Comment: NOTE Toxic:>10.0 mcg/mLTest Performed by:[place] [id number] Director: Colten Sosa Ph.D.; CLIA# [id number] Performed By: #### G O, 3321-7 ####[facility] ([id number])5200 [place] [address] CBC AND AUTO DIFFon 05-10-19 25 Band form neutrophils/100 WBC (Bld) 2.0 % Normal [facility] Comment on above: Performed By: #### C BCA ####[facility] ([id number])5[address] [place] [address] Eosinophils (Bld) [#/Vol] 0.1 10*3/uL Normal 0.0-0.4 [facility] Comment on above: Performed By: #### C BCA ####[facility] ([id number])5[address] [place] [address] Eosinophils/100 WBC (Bld) 6.0 % Normal [facility] Comment on above: Performed By: #### C BCA ####[facility] ([id number])5[address] [place] [address] Erythrocyte distribution width (RBC) [Ratio] 20.9 % High 11.5-15.0 [facility] Comment on above: Performed By: #### C BCA ####[facility] ([id number])5200 [facility] [place] [address] Hematocrit (Bld) [Volume fraction] 23.8 % Low 35-47 [facility] Comment on above: Performed By: #### C BCA ####[facility] ([id number])5200 [facility] [place] [address] Hemoglobin (Bld) [Mass/Vol] 7.9 g/dL Low 11.7-15.5 [facility] Comment on above: Performed By: #### C BCA ####[facility] ([id number])5200 [facility] [place] [address] Lymphocytes (Bld) [#/Vol] 0.5 10*3/uL Low 1.0-3.5 [facility] Comment on above: Performed By: #### C BCA ####[facility] ([id number])5200 [facility] [place] [address] Lymphocytes/100 WBC (Bld) 27.0 % Normal [facility] Comment on above: Performed By: #### C BCA ####[facility] ([id number])5200 [facility] [address] MCH (RBC) [Entitic mass] 29.6 pg Normal 27-34 [facility] Comment on above: Performed By: #### C BCA ####[facility] ([id number])5[address] [place] [address] MCHC (RBC) [Mass/Vol] 33.0 g/dL Normal 32-36 [facility] Comment on above: Performed By: #### C BCA ####[facility] ([id number])5200 [facility] [address] MCV (RBC) [Entitic vol] 90 fL Normal 80-100 [facility] Comment on above: Performed By: #### C BCA ####[facility] ([id number])5[address] [facility] [place] [address] Metamyelocytes/100 WBC (Bld) 2.0 % Normal [facility] Comment on above: Performed By: #### C BCA ####[facility] ([id number])5[address] [facility] [place] [address] Monocytes (Bld) [#/Vol] 0.3 10*3/uL Normal 0-0.9 [facility] Comment on above: Performed By: #### C BCA ####[facility] ([id number])5200 [facility] [place] [address] Monocytes/100 WBC (Bld) 13.0 % Normal [facility] Comment on above: Performed By: #### C BCA ####[facility] ([id number])5200 [facility] [place] [address] Neutrophils (Bld) [#/Vol] 1.1 10*3/uL Low 1.5-6.6 [facility] Comment on above: Performed By: #### C BCA ####[facility] ([id number])5200 [facility] [place] [address] OVALOCYTE 1+ Abnormal NONE [facility] Comment on above: Performed By: #### C BCA ####[facility] ([id number])5200 [facility] [address] Platelet mean volume (Bld) [Entitic vol] 6.9 fL Low 7-12 [facility] Comment on above: Performed By: #### C BCA ####[facility] ([id number])5[address] [facility] [address] Platelets (Bld) [#/Vol] 87 10*3/uL Low 150-450 [facility] Comment on above: Performed By: #### C BCA ####[facility] ([id number])5[address] [place] [address] POLYCHROMASIA 1+ Abnormal NONE [facility] Comment on above: Performed By: #### C BCA ####[facility] ([id number])5[address] [place] [address] RBC COUNT 2.66 X10E12/L Low 3.80-5.20 [facility] Comment on above: Performed By: #### C BCA ####[facility] ([id number])5[address] [place] [address] SEG NEUTROPHIL 50.0 % Normal [facility] Comment on above: Performed By: #### C BCA ####[facility] ([id number])5[address] [place] [address] WBC (Bld) [#/Vol] 2.0 10*3/uL Low 4.0-11.0 [facility] Comment on above: Performed By: #### C BCA ####[facility] ([id number])5[address] [place] [address] CREATININEon 05-09-2024 Creatinine [Mass/Vol] 0.67 mg/dL Normal 0.40-1.00 [facility] Comment on above: Result Comment: METH OD TRACEABLE TO IDMS STANDARD Performed By: #### 4 679-7, 2532-0, LIVR, 2276-4, DIRECTOR RADIO, 55251-1 ####[facility] ([id number])[address] [place] [address]#### FEPR, 2284-8, 2132-9, 60846-4, SIFE, SPE, FLCH ####[facility] ([id number])2[address] [facility] [address] [place] [address] eGFR (CKD-EPI) NON-RACE DEPENDENT >90 Normal >59 [facility] Comment on above: Result Comment: Repo rted eGFR is based on theCKD-EPI 2020 equation that doesnot use a race coefficient. Performed By: #### 4 679-7, 2532-0, LIVR, 2276-4, DIRECTOR RADIO, 24538-3 ####[facility] ([id number])[address] [place] [address]#### FEPR, 2284-8, 2132-9, 28786-7, SIFE, SPE, FLCH ####[facility] ([id number])2130 [facility], [address] [place] [address] Clinical Pathology Blood Sme ar Reviewon 05-09-2024 Clinical Pathology Blood Smear Review Normal [facility] Comment on above: Result Comment: [facility] [address] [place] [address] Clinical Pathology ReportPatient Name:IKE FLANNERY:1970 (Age: 53)Gender:FTaken:05/09/2024Reported:05/10/2024Physician(s):Naima Gross MD ([phone])Copy To: Rec. #:[id number]: #[id number] Pathologic DiagnosisPERIPHERAL BLOOD:- Normocytic anemia with increased anisocytosis- Leukopenia with neutropenia, mild left shift and reactive changes- Thrombocytopenia with morphologically unremarkable plateletsComment: The etiology of the cytopenias is not evident from the peripheral blood smear morphology. Lack of polychromasia favors a hypoproliferative anemia, and there is no morphologic evidence of hemolysis. Dysplastic features are not seen in the circulating neutrophils. The differential diagnosis may include primary marrow disorder such as myelodysplasia, marrow suppression by infection/toxin/neoplasm, immune disorder, myelophthisis, etc.The recent history of malignancy is noted. If the patient is on chemotherapy, morphologic features favor myelosuppression induced by chemotherapy. Clinical correlation is recommended.MICROSCOPY: The red cells are decreased in number and are hypochromic and microcytic with increased anisopoikilocytosis and minimal polychromasia.Leukocytes are decreased in number, consisting predominantly of segmented neutrophils with fewer numbers of lymphocytes and monocytes. Left shift of myeloids are noted. Occasional neutrophils have toxic granules and vacuoles signifying reactive changes.Platelets are decreased in number and normal in morphology. Report Electronically Signed Outrxd/05/10/2024Reece Gross MDInterpretation performed at [facility], [address] [place] [address], License number: [id number].Clinical GkgzwgyK58.890 BLOOD SMEAR EVALUATIONCB (05/09/2024 0628): WBC = 2.0 X10E9/L; HGB = 7.9 g/dL; HCT = 23.8%; MCV = 90 fL; PLT = 87 X10E9/LSpecimen(s) Received Blood Smear ReviewFee Codes(s):1; 92221 FERRITINon 05-09-2024 Ferritin [Mass/Vol] 760 ng/mL High 11-307 [facility] Comment on above: Performed By: #### 4 679-7, 2532-0, LIVR, 2276-4, DIRECTOR RADIO, 30942-3 ####[facility] ([id number])[address] [place] [address]#### FEPR, 2284-8, 2-9, 82843-9, SIFE, SPE, FLCH ####[facility] ([id number])[address] [place] [address], [address] [address] FREE LIGHT CHAINSon 05-10-19 25 FREE JAVIER/LAMBD RATIO 0.66 Normal 0.26-1.65 [facility] Comment on above: Performed By: #### 4 679-7, 2532-0, LIVR, 2276-4, DIRECTOR RADIO, 31101-5 ####[facility] ([id number])[address] [place] [address]#### FEPR, 2284-8, 2132-9, 18351-2, SIFE, SPE, FLCH ####[facility] ([id number])[address] [address] FREE KAPPA LT CHAINS 1.22 mg/dL Normal 0.33-1.94 [facility] Comment on above: Performed By: #### 4 679-7, 2532-0, LIVR, 2276-4, DIRECTOR RADIO, 04518-1 ####[facility] ([id number])[address] [place] [address]#### FEPR, 2284-8, 2-9, 24476-9, SIFE, SPE, FLCH ####[facility] ([id number])[address] [address] FREE LAMBDA LT CHAINS 1.85 mg/dL Normal 0.57-2.63 [facility] Comment on above: Performed By: #### 4 679-7, 2532-0, LIVR, 2276-4, DIRECTOR RADIO, 05251-2 ####[facility] ([id number])[address] [place] [address]#### FEPR, 2284-8, 2-9, 41842-8, SIFE, SPE, FLCH ####[facility] ([id number])[address] [address] Folate [Mass/Vol]on 05-10-19 25 FOLIC ACID 5.2 ng/mL Low >5.8 [facility] Comment on above: Result Comment: NEW REFERENCE RANGE Performed By: #### 4 679-7, 2532-0, LIVR, 2276-4, DIRECTOR RADIO, 87326-3 ####[facility] ([id number])[address] [place] [address]#### FEPR, 2284-8, 2132-9, 36167-2, SIFE, SPE, FLCH ####[facility] ([id number])[address], [address] [place] [address] Haptoglobin Nephelometry [Ma ss/Vol]on 05-09-2024 HAPTOGLOBIN 233 mg/dL High 32-228 [facility] Comment on above: Performed By: #### 4 679-7, 2532-0, LIVR, 2276-4, DIRECTOR RADIO, 55833-1 ####[facility] ([id number])[address] [place] [address]#### FEPR, 2284-8, 2132-9, 36872-5, SIFE, SPE, FLCH ####[facility] ([id number])[address], [address] [place] [address] IRON PROFILEon 05-09-2024 Iron [Mass/Vol] 29 ug/dL Low 50-170 [facility] Comment on above: Performed By: #### 4 679-7, 2532-0, LIVR, 2276-4, DIRECTOR RADIO, 10466-2 ####[facility] ([id number])[address] [place] [address]#### FEPR, 2284-8, 2-9, 38060-2, SIFE, SPE, FLCH ####[facility] ([id number])[address] [facility], [address] [place] [address] IRON BINDING 225 ug/dL Low 250-425 [facility] Comment on above: Performed By: #### 4 679-7, 2532-0, LIVR, 2276-4, DIRECTOR RADIO, 50846-5 ####[facility] ([id number])[address] [place] [address]#### FEPR, 2284-8, 2132-9, 04680-1, SIFE, SPE, FLCH ####[facility] ([id number])[address], [address] [place] [address] IRON SATURATION 13 % SATURATION Low 15-50 [facility] Comment on above: Performed By: #### 4 679-7, 2532-0, LIVR, 2276-4, DIRECTOR RADIO, 46019-9 ####[facility] ([id number])[address] [place] [address]#### FEPR, 2284-8, 2131-9, 00697-5, SIFE, SPE, FLCH ####[facility] ([id number])[address], [address], [place] [address] LDH [Catalytic activity/Vol] on 05-09-2024 LDH 105 U/L Normal 100-235 [facility] Comment on above: Performed By: #### 4 679-7, 2532-0, LIVR, 2276-4, DIRECTOR RADIO, 02877-1 ####[facility] ([id number])[address] [place] [address]#### FEPR, 2284-8, 2131-9, 56840-6, SIFE, SPE, FLCH ####[facility] ([id number])[address], [address] [place] [address] LIVER PANELon 05-09-2024 Albumin [Mass/Vol] 3.0 g/dL Low 3.2-5.3 [facility] Comment on above: Performed By: #### 4 679-7, 2532-0, LIVR, 2276-4, DIRECTOR RADIO, 73071-6 ####[facility] ([id number])[address] [place] [address]#### FEPR, 2284-8, 2131-9, 25100-5, SIFE, SPE, FLCH ####[facility] ([id number])[address], [address] [address] ALP [Catalytic activity/Vol] 50 U/L Normal 39-130 [facility] Comment on above: Performed By: #### 4 679-7, 2532-0, LIVR, 2276-4, DIRECTOR RADIO, 33981-8 ####[facility] ([id number])[address] [place] [address]#### FEPR, 2284-8, 2132-9, 22939-1, SIFE, SPE, FLCH ####[facility] ([id number])[address], [address] [place] [address] ALT [Catalytic activity/Vol] 11 U/L Normal 0-31 [facility] Comment on above: Performed By: #### 4 679-7, 2532-0, LIVR, 2276-4, DIRECTOR RADIO, 36911-7 ####[facility] ([id number])[address] [place] [address]#### FEPR, 2284-8, 2132-9, 35299-1, SIFE, SPE, FLCH ####[facility] ([id number])[address], [address] [place] [address] AST [Catalytic activity/Vol] 12 U/L Normal 0-41 [facility] Comment on above: Performed By: #### 4 679-7, 2532-0, LIVR, 2276-4, DIRECTOR RADIO, 18942-0 ####[facility] ([id number])[address] [place] [address]#### FEPR, 2284-8, 2-9, 13665-2, SIFE, SPE, FLCH ####[facility] ([id number])[address], [address] [place] [address] Bilirubin [Mass/Vol] 0.4 mg/dL Normal 0.3-1.2 [facility] Comment on above: Performed By: #### 4 679-7, 2532-0, LIVR, 2276-4, DIRECTOR RADIO, 42475-7 ####[facility] ([id number])[address] [place] [address]#### FEPR, 2284-8, 2132-9, 14061-5, SIFE, SPE, FLCH ####[facility] ([id number])[address], [address] [place] [address] Bilirubin.direct [Mass/Vol] 0.1 mg/dL Normal 0.0-0.4 [facility] Comment on above: Performed By: #### 4 679-7, 2532-0, LIVR, 2276-4, DIRECTOR RADIO, 29187-3 ####[facility] ([id number])[address] [place] [address]#### FEPR, 2284-8, 2132-9, 83872-6, SIFE, SPE, FLCH ####[facility] ([id number])[address] [facility], [address] [place] [address] Protein [Mass/Vol] 5.0 g/dL Low 6.0-8.0 [facility] Comment on above: Performed By: #### 4 679-7, 2532-0, LIVR, 2276-4, DIRECTOR RADIO, 80940-6 ####[facility] ([id number])[address] [place] [address]#### FEPR, 2284-8, 2132-9, 11061-0, SIFE, SPE, FLCH ####[facility] ([id number])[address], [address] [address] [facility] ORDERon 025 TEST NAME NAIMA AMIKACIN PEAK RNOGEL SERUM Normal [facility] Comment on above: Performed By: #### G Juan, 3321-7 ####[facility] ([id number])[address] [place] [address] TEST RESULT SEE COMMENTS 05/10/2024 01:58 PM Abnormal [facility] Comment on above: Result Comment: NOTE Test Result Flag Unit RefValue Amikacin, Peak, S 17.4 L mcg/mL 20.0 - 35.0 Test Performed by: [facility] [place] [address] Pulper Operator: Colten Sosa Ph.D.; CLIA# [id number] Performed By: #### G O, 3321-7 ####[facility] ([id number])[address] [place] [address]68[address] Pathologist review Pathologi st comment (Bld) [Interp]on 05-09-2024 STAFF REVIEW NOTE Normal [facility] Comment on above: Result Comment: [facility] [address] [place] [address] Clinical Pathology ReportPatient Name:IKE FLANNERY:1970 (Age:53)Gender:FTaken:05/09/2024Reported:05/10/2024Physician(s):Marlon Gross MD ([phone])Copy To: Rec.#:[id number]: #[id number] Pathologic DiagnosisPERIPHERAL BLOOD:- Normocytic anemia with increased anisocytosis- Leukopenia with neutropenia, mild left shift and reactive changes- Thrombocytopenia with morphologically unremarkable plateletsComment: The etiology of the cytopenias is not evident from theperipheral blood smear morphology. Lack of polychromasia favors ahypoproliferative anemia, and there is no morphologic evidence ofhemolysis. Dysplastic features are not seen in the circulatingneutrophils. The differential diagnosis may include primary marrowdisorder such as myelodysplasia, marrow suppression byinfection/toxin/neoplasm, immune disorder, myelophthisis, etc.The recent history of malignancy is noted. If the patient is onchemotherapy, morphologic features favor myelosuppression induced bychemotherapy. Clinical correlation is recommended.MICROSCOPY: The red cells are decreased in number and are hypochromicand microcytic with increased anisopoikilocytosis and minimalpolychromasia.Leukocytes are decreased in number, consisting predominantly ofsegmented neutrophils with fewer numbers of lymphocytes andmonocytes. Left shift of myeloids are noted. Occasional neutrophilshave toxic granules and vacuoles signifying reactive changes.Platelets are decreased in number and normal in morphology. Report Electronically Signed Outrxd/05/10/2024Reece Gross MDInterpretation performed at [place] [id number], License number: [id number].Clinical XotpsqyL65.890 BLOOD SMEAR EVALUATIONCB (05/09/2024 0628): WBC = 2.0 X10E9/L; HGB = 7.9 g/dL; HCT =23.8%; MCV = 90 fL; PLT = 87 X10E9/LSpecimen(s) ReceivedBlood Smear ReviewFee Codes(s):1; 79219 Performed By: #### 4 679-7, 2532-0, LIVR, 2276-4, DIRECTOR RADIO, 07173-6 ####[facility] ([id number])[address] [place] [address]#### FEPR, 2284-8, 2-9, 33089-8, SIFE, SPE, FLCH ####[facility] ([id number])[address] [place] [address] Reticulocytes/100 RBC (Bld)o n 05-09-2024 RETICULOCYTE COUNT 2.5 % High 0.4-2.2 [facility] Comment on above: Performed By: #### 4 679-7, 2532-0, LIVR, 2276-4, DIRECTOR RADIO, 96888-7 ####[facility] ([id number])[address] [place] [address]#### FEPR, 2284-8, 2132-9, 80485-3, SIFE, SPE, FLCH ####[facility] ([id number])[address] [place] [address], [address] [address] SERUM IMMUNOFIXATIONon 05-09 IgA [Mass/Vol] 70 mg/dL Normal 68-378 [facility] Comment on above: Performed By: #### 4 679-7, 2532-0, LIVR, 2276-4, DIRECTOR RADIO, 40594-4 ####[facility] ([id number])[address] [place] [address]#### FEPR, 2284-8, 2132-9, 03660-1, SIFE, SPE, FLCH ####[facility] ([id number])[address], [address] [address] IgG [Mass/Vol] 337 mg/dL Low 635-1741 [facility] Comment on above: Performed By: #### 4 679-7, 2532-0, LIVR, 2276-4, DIRECTOR RADIO, 46932-6 ####[facility] ([id number])[address] [place] [address]#### FEPR, 2284-8, 2-9, 60406-8, SIFE, SPE, FLCH ####[facility] ([id number])[address], [address] [place] [address] IgM [Mass/Vol] 23 mg/dL Low 45-281 [facility] Comment on above: Performed By: #### 4 679-7, 2532-0, LIVR, 2276-4, DIRECTOR RADIO, 41971-5 ####[facility] ([id number])[address] [place] [address]#### FEPR, 2284-8, 2-9, 13035-4, SIFE, SPE, FLCH ####[facility] ([id number])[address], [address] [place] [address] IMMUNE PROFILE INTERP Unremarkable patte rn and quantitation, no monoclonal bands. Normal [facility] Comment on above: Performed By: #### 4 679-7, 2532-0, LIVR, 2276-4, DIRECTOR RADIO, 91827-3 ####[facility] ([id number])[address] [place] [address]#### FEPR, 2284-8, 2132-9, 32772-3, SIFE, SPE, FLCH ####[facility] ([id number])[address], [address] [place] [address] SERUM PROTEIN ELECTROPHORESI Son 05-09-2024 Albumin [Mass/Vol] 2.5 g/dL Low 3.4-5.3 [facility] Comment on above: Performed By: #### 4 679-7, 2532-0, LIVR, 2276-4, DIRECTOR RADIO, 89660-6 ####[facility] ([id number])[address] [place] [address]#### FEPR, 2284-8, 2-9, 47651-1, SIFE, SPE, FLCH ####[facility] ([id number])[address], [address] [place] [address] ALPHA 1 GLOBULIN 0.4 g/dL Normal 0.1-0.4 [facility] Comment on above: Performed By: #### 4 679-7, 2532-0, LIVR, 2276-4, DIRECTOR RADIO, 96886-1 ####[facility] ([id number])[address] [place] [address]#### FEPR, 2284-8, 2132-9, 95209-8, SIFE, SPE, FLCH ####[facility] ([id number])[address], [address] [place] [address] ALPHA 2 GLOBULIN 0.6 g/dL Normal 0.4-1.1 [facility] Comment on above: Performed By: #### 4 679-7, 2532-0, LIVR, 2276-4, DIRECTOR RADIO, 92228-0 ####[facility] ([id number])[address] [place] [address]#### FEPR, 2284-8, 2132-9, 82950-0, SIFE, SPE, FLCH ####[facility] ([id number])[address], [address] [place] [address] BETA GLOBULIN 0.6 g/dL Normal 0.5-1.2 [facility] Comment on above: Performed By: #### 4 679-7, 2532-0, LIVR, 2276-4, DIRECTOR RADIO, 10846-9 ####[facility] ([id number])[address] [place] [address]#### FEPR, 2284-8, 2132-9, 46114-0, SIFE, SPE, FLCH ####[facility] ([id number])[address] [facility], [address] [place] [address] GAMMA GLOBULIN 0.3 g/dL Low 0.5-1.6 [facility] Comment on above: Performed By: #### 4 679-7, 2532-0, LIVR, 2276-4, DIRECTOR RADIO, 53220-7 ####[facility] ([id number])[address] [place] [address]#### FEPR, 2284-8, 2132-9, 24433-8, SIFE, SPE, FLCH ####[facility] ([id number])[address] [facility], [address] [place] [address] PROT. ELECTROPHORESIS INTERP Unremarkable protein distribution, no monoclonal bands. Normal [facility] Comment on above: Performed By: #### 4 679-7, 2532-0, LIVR, 2276-4, DIRECTOR RADIO, 68275-8 ####[facility] ([id number])[address] [place] [address]#### FEPR, 2284-8, 2132-9, 03843-3, SIFE, SPE, FLCH ####[facility] ([id number])[address], [address] [place] [address] Protein [Mass/Vol] 4.4 g/dL Low 6.0-8.0 [facility] Comment on above: Performed By: #### 4 679-7, 2532-0, LIVR, 2276-4, DIRECTOR RADIO, 71998-8 ####[facility] ([id number])[address] [place] [address]#### FEPR, 2284-8, 2132-9, 25283-6, SIFE, SPE, FLCH ####[facility] ([id number])[address] [place] [address], [address] [address] VITAMIN B12on 05-09-2024 Cobalamin (Vitamin B12) [Mass/Vol] 1264 pg/mL High 180-914 [facility] Comment on above: Performed By: #### 4 679-7, 2532-0, LIVR, 2276-4, DIRECTOR RADIO, 72557-1 ####[facility] ([id number])[address] [place] [address]#### FEPR, 2284-8, 2-9, 40197-3, SIFE, SPE, FLCH ####[facility] ([id number])[address] [place] [address], [address] [place] [address] CBC AND AUTO DIFFon 05-09-19 25 ABSOLUTE BASOPHIL 0.0 X10E9/L Normal 0.0-0.2 [facility] Comment on above: Performed By: #### C BCA ####[facility] ([id number])[address] [place] [address] ABSOLUTE NEUTROPHIL 1.2 X10E9/L Low 1.5-6.6 [facility] Comment on above: Performed By: #### C BCA ####[facility] ([id number])[address] [place] [address] Basophils/100 WBC (Bld) 0.6 % Normal [facility] Comment on above: Performed By: #### C BCA ####[facility] ([id number])[address] [place] [address] Eosinophils (Bld) [#/Vol] 0.2 10*3/uL Normal 0.0-0.4 [facility] Comment on above: Performed By: #### C BCA ####[facility] ([id number])[address] [facility] [place] [address] Eosinophils/100 WBC (Bld) 8.7 % Normal [facility] Comment on above: Performed By: #### C BCA ####[facility] ([id number])[address] [place] [address] Erythrocyte distribution width (RBC) [Ratio] 21.2 % High 11.5-15.0 [facility] Comment on above: Performed By: #### C BCA ####[facility] ([id number])[address] [place] [address] FRAGMENT 1+ Abnormal NONE [facility] Comment on above: Performed By: #### C BCA ####[facility] ([id number])[address] [place] [address] Hematocrit (Bld) [Volume fraction] 26.0 % Low 35-47 [facility] Comment on above: Performed By: #### C BCA ####[facility] ([id number])[address] [place] [address] Hemoglobin (Bld) [Mass/Vol] 8.8 g/dL Low 11.7-15.5 [facility] Comment on above: Performed By: #### C BCA ####[facility] ([id number])[address] [place] [address] Lymphocytes (Bld) [#/Vol] 0.6 10*3/uL Low 1.0-3.5 [facility] Comment on above: Performed By: #### C BCA ####[facility] ([id number])[address] [place] [address] Lymphocytes/100 WBC (Bld) 27.4 % Normal [facility] Comment on above: Performed By: #### C BCA ####[facility] ([id number])[address] [place], [place] [address], [place] [address] MCH (RBC) [Entitic mass] 30.1 pg Normal 27-34 [facility] Comment on above: Performed By: #### C BCA ####[facility] ([id number])[address] [place] [address] MCHC (RBC) [Mass/Vol] 33.9 g/dL Normal 32-36 [facility] Comment on above: Performed By: #### C BCA ####[facility] ([id number])[address] [place] [address] MCV (RBC) [Entitic vol] 89 fL Normal 80-100 [facility] Comment on above: Performed By: #### C BCA ####[facility] ([id number])[address] [place] [address] Monocytes (Bld) [#/Vol] 0.3 10*3/uL Normal 0-0.9 [facility] Comment on above: Performed By: #### C BCA ####[facility] ([id number])[address] [place] [address] Monocytes/100 WBC (Bld) 12.8 % Normal [facility] Comment on above: Performed By: #### C BCA ####[facility] ([id number])[address] [place] [address] Neutrophils/100 WBC (Bld) 50.5 % Normal [facility] Comment on above: Performed By: #### C BCA ####[facility] ([id number])[address] [place] [address] Platelet mean volume (Bld) [Entitic vol] 7.1 fL Normal 7-12 [facility] Comment on above: Performed By: #### C BCA ####[facility] ([id number])[address] [place] [address] Platelets (Bld) [#/Vol] 103 10*3/uL Low 150-450 [facility] Comment on above: Performed By: #### C BCA ####[facility] ([id number])[address] [place] [address] RBC COUNT 2.92 X10E12/L Low 3.80-5.20 [facility] Comment on above: Performed By: #### C BCA ####[facility] ([id number])[address] [place] [address] WBC (Bld) [#/Vol] 2.3 10*3/uL Low 4.0-11.0 [facility] Comment on above: Performed By: #### C BCA ####[facility] ([id number])[address] [place] [address] CBC AND AUTO DIFFon 05-08-19 25 Eosinophils (Bld) [#/Vol] 0.1 10*3/uL Normal 0.0-0.4 [facility] Comment on above: Performed By: #### C BCA ####[facility] ([id number])[address] [place] [address] Eosinophils/100 WBC (Bld) 7.0 % Normal [facility] Comment on above: Performed By: #### C BCA ####[facility] ([id number])[address] [place] [address] Erythrocyte distribution width (RBC) [Ratio] 20.7 % High 11.5-15.0 [facility] Comment on above: Performed By: #### C BCA ####[facility] ([id number])[address] [place] [address] FRAGMENT 1+ Abnormal NONE [facility] Comment on above: Performed By: #### C BCA ####[facility] ([id number])[address] [place] [address] Hematocrit (Bld) [Volume fraction] 23.7 % Low 35-47 [facility] Comment on above: Performed By: #### C BCA ####[facility] ([id number])[address] [place] [address] Hemoglobin (Bld) [Mass/Vol] 8.0 g/dL Low 11.7-15.5 [facility] Comment on above: Performed By: #### C BCA ####[facility] ([id number])[address] [place] [address] Lymphocytes (Bld) [#/Vol] 0.6 10*3/uL Low 1.0-3.5 [facility] Comment on above: Performed By: #### C BCA ####[facility] ([id number])[address] [facility] [address] Lymphocytes/100 WBC (Bld) 30.0 % Normal [facility] Comment on above: Performed By: #### C BCA ####[facility] ([id number])[address] [place] [address] MCH (RBC) [Entitic mass] 29.9 pg Normal 27-34 [facility] Comment on above: Performed By: #### C BCA ####[facility] ([id number])[address] [facility] [facility] [address] MCHC (RBC) [Mass/Vol] 33.8 g/dL Normal 32-36 [facility] Comment on above: Performed By: #### C BCA ####[facility] ([id number])[address] [place] [address] MCV (RBC) [Entitic vol] 88 fL Normal 80-100 [facility] Comment on above: Performed By: #### C BCA ####[facility] ([id number])[address] [facility] [facility] [address] Monocytes (Bld) [#/Vol] 0.2 10*3/uL Normal 0-0.9 [facility] Comment on above: Performed By: #### C BCA ####[facility] ([id number])[address] [place] [address] Monocytes/100 WBC (Bld) 9.0 % Normal [facility] Comment on above: Performed By: #### C BCA ####[facility] ([id number])[address] [place] [address] Neutrophils (Bld) [#/Vol] 1.2 10*3/uL Low 1.5-6.6 [facility] Comment on above: Performed By: #### C BCA ####[facility] ([id number])[address] [place] [address] Platelet mean volume (Bld) [Entitic vol] 7.3 fL Normal 7-12 [facility] Comment on above: Performed By: #### C BCA ####[facility] ([id number])[address] [facility] [facility] [address] Platelets (Bld) [#/Vol] 101 10*3/uL Low 150-450 [facility] Comment on above: Performed By: #### C BCA ####[facility] ([id number])[address] [place] [address] RBC COUNT 2.68 X10E12/L Low 3.80-5.20 [facility] Comment on above: Performed By: #### C BCA ####[facility] ([id number])[address] [facility] [place] [address] SEG NEUTROPHIL 54.0 % Normal [facility] Comment on above: Performed By: #### C BCA ####[facility] ([id number])5[address] [place] [address] TEARDROP 1+ Abnormal NONE [facility] Comment on above: Performed By: #### C BCA ####[facility] ([id number])5[address] [place] [address] WBC (Bld) [#/Vol] 2.1 10*3/uL Low 4.0-11.0 [facility] Comment on above: Performed By: #### C BCA ####[facility] ([id number])5[address] [place] [address] 36on 05-06-2024 36 RN called to request most recent labs be faxed to [facility] ID. Fax number confirmed Normal [facility] BASIC METABOLIC PANLon 05-06 Anion gap [Moles/Vol] 3 mmol/L Low 5-15 [facility] Comment on above: Performed By: #### C BCA, BMP ####[facility] ([id number])5200 [place] [address] Calcium [Mass/Vol] 8.8 mg/dL Normal 8.5-10.5 [facility] Comment on above: Performed By: #### C BCA, BMP ####[facility] ([id number])5200 [place] [address] Chloride [Moles/Vol] 105 mmol/L Normal 98-109 [facility] Comment on above: Performed By: #### C BCA, BMP ####[facility] ([id number])5200 [place] [address] CO2 [Moles/Vol] 29 mmol/L Normal 22-32 [facility] Comment on above: Performed By: #### C BCA, BMP ####[facility] ([id number])5200 [place] [address] Creatinine [Mass/Vol] 0.67 mg/dL Normal 0.40-1.00 [facility] Comment on above: Result Comment: METH OD TRACEABLE TO IDMS STANDARD Performed By: #### C BCA, BMP ####[facility] ([id number])5200 [place] [address] eGFR (CKD-EPI) NON-RACE DEPENDENT >90 Normal >59 [facility] Comment on above: Result Comment: Repo rted eGFR is based on theCKD-EPI 2020 equation that doesnot use a race coefficient. Performed By: #### C BCA, BMP ####[facility] ([id number])5200 [place] [address] Glucose [Mass/Vol] 97 mg/dL Normal 65-99 [facility] Comment on above: Performed By: #### C BCA, BMP ####[facility] ([id number])5200 [facility] [place] [address] Potassium [Moles/Vol] 3.8 mmol/L Normal 3.5-5.0 [facility] Comment on above: Performed By: #### C BCA, BMP ####[facility] ([id number])5200 [facility] [place] [address] Sodium [Moles/Vol] 137 mmol/L Normal 134-146 [facility] Comment on above: Performed By: #### C BCA, BMP ####[facility] ([id number])5200 [place] [address] Urea nitrogen [Mass/Vol] 19 mg/dL Normal 5-23 [facility] Comment on above: Performed By: #### C BCA, BMP ####[facility] ([id number])5[address] [place] [address] CBC AND AUTO DIFFon 05-07-19 25 ABSOLUTE BASOPHIL 0.0 X10E9/L Normal 0.0-0.2 [facility] Comment on above: Performed By: #### C BCA, BMP ####[facility] ([id number])5[address] [place] [address] ABSOLUTE NEUTROPHIL 1.4 X10E9/L Low 1.5-6.6 [facility] Comment on above: Performed By: #### C BCA, BMP ####[facility] ([id number])5[address] [place] [address] Basophils/100 WBC (Bld) 0.6 % Normal [facility] Comment on above: Performed By: #### C BCA, BMP ####[facility] ([id number])5[address] [facility] [place] [address] Eosinophils (Bld) [#/Vol] 0.2 10*3/uL Normal 0.0-0.4 [facility] Comment on above: Performed By: #### C BCA, BMP ####[facility] ([id number])5[address] [place] [address] Eosinophils/100 WBC (Bld) 7.6 % Normal [facility] Comment on above: Performed By: #### C BCA, BMP ####[facility] ([id number])5200 [facility] [address] Erythrocyte distribution width (RBC) [Ratio] 20.4 % High 11.5-15.0 [facility] Comment on above: Performed By: #### C BCA, BMP ####[facility] ([id number])5200 [facility] [place] [address] FRAGMENT 1+ Abnormal NONE [facility] Comment on above: Performed By: #### C LUCIA, BMP ####[facility] ([id number])5200 [facility] [place] [address] Hematocrit (Bld) [Volume fraction] 20.3 % Low 35-47 [facility] Comment on above: Performed By: #### C LUCIA, BMP ####[facility] ([id number])5200 [facility] [place] [address] Hemoglobin (Bld) [Mass/Vol] 6.9 g/dL Critically low 11.7-15.5 [facility] Comment on above: Performed By: #### C BCA, BMP ####[facility] ([id number])5[address] [facility] [place] [address] Lymphocytes (Bld) [#/Vol] 0.5 10*3/uL Low 1.0-3.5 [facility] Comment on above: Performed By: #### C BCA, BMP ####[facility] ([id number])5[address] [facility] [place] [address] Lymphocytes/100 WBC (Bld) 22.8 % Normal [facility] Comment on above: Performed By: #### C BCA, BMP ####[facility] ([id number])5200 [facility] [place] [address] MCH (RBC) [Entitic mass] 30.4 pg Normal 27-34 [facility] Comment on above: Performed By: #### C BCA, BMP ####[facility] ([id number])5200 [facility] [address] MCHC (RBC) [Mass/Vol] 34.1 g/dL Normal 32-36 [facility] Comment on above: Performed By: #### C BCA, BMP ####[facility] ([id number])5200 [facility] [address] MCV (RBC) [Entitic vol] 89 fL Normal 80-100 [facility] Comment on above: Performed By: #### C BCA, BMP ####[facility] ([id number])5200 [facility] [place] [address] Monocytes (Bld) [#/Vol] 0.2 10*3/uL Normal 0-0.9 [facility] Comment on above: Performed By: #### C BCA, BMP ####[facility] ([id number])5[address] [place] [address] Monocytes/100 WBC (Bld) 7.8 % Normal [facility] Comment on above: Performed By: #### C BCA, BMP ####[facility] ([id number])5200 [facility] [place] [address] Neutrophils/100 WBC (Bld) 61.2 % Normal [facility] Comment on above: Performed By: #### C BCA, BMP ####[facility] ([id number])5[address] [facility] [place] [address] OVALOCYTE 1+ Abnormal NONE [facility] Comment on above: Performed By: #### C BCA, BMP ####[facility] ([id number])5200 [facility] [place] [address] Platelet mean volume (Bld) [Entitic vol] 7.1 fL Normal 7-12 [facility] Comment on above: Performed By: #### C BCA, BMP ####[facility] ([id number])5200 [facility] [place] [address] Platelets (Bld) [#/Vol] 108 10*3/uL Low 150-450 [facility] Comment on above: Performed By: #### C BCA, BMP ####[facility] ([id number])5200 [place] [address] RBC COUNT 2.27 X10E12/L Low 3.80-5.20 [facility] Comment on above: Performed By: #### C BCA, BMP ####[facility] ([id number])5200 [place] [address] WBC (Bld) [#/Vol] 2.3 10*3/uL Low 4.0-11.0 [facility] Comment on above: Performed By: #### C BCA, BMP ####[facility] ([id number])5200 [place] [address] HGBon 05-06-2024 Hematocrit (Bld) [Volume fraction] 25.9 % Low 35-47 [facility] Comment on above: Performed By: #### H H ####[facility] ([id number])5200 [place] [address] Hemoglobin (Bld) [Mass/Vol] 8.7 g/dL Low 11.7-15.5 [facility] Comment on above: Performed By: #### H H ####[facility] ([id number])5200 [place] [address] BASIC METABOLIC PANLon 05-05 Anion gap [Moles/Vol] 3 mmol/L Low 5-15 [facility] Comment on above: Performed By: #### C BC, BMP ####[facility] ([id number])5200 [facility] [address] Calcium [Mass/Vol] 8.5 mg/dL Normal 8.5-10.5 [facility] Comment on above: Performed By: #### C BC, BMP ####[facility] ([id number])5200 [place] [address] Chloride [Moles/Vol] 104 mmol/L Normal 98-109 [facility] Comment on above: Performed By: #### C BC, BMP ####[facility] ([id number])5[address] [place] [address] CO2 [Moles/Vol] 27 mmol/L Normal 22-32 [facility] Comment on above: Performed By: #### C BC, BMP ####[facility] ([id number])5200 [place] [address] Creatinine [Mass/Vol] 0.84 mg/dL Normal 0.40-1.00 [facility] Comment on above: Result Comment: METH OD TRACEABLE TO IDMS STANDARD Performed By: #### C KEVIN, BMP ####[facility] ([id number])5[address] [place] [address] GFR/1.73 sq M.predicted among non-blacks MDRD (S/P/Bld) [Vol rate/Area] 83 mL/min/{1.73_m2} Normal >59 [facility] Comment on above: Result Comment: Repo rted eGFR is based on theCKD-EPI 2020 equation that doesnot use a race coefficient. Performed By: #### C BC, BMP ####[facility] ([id number])5200 [place] [address] Glucose [Mass/Vol] 95 mg/dL Normal 65-99 [facility] Comment on above: Performed By: #### C BC, BMP ####[facility] ([id number])5200 [place] [address] Potassium [Moles/Vol] 4.1 mmol/L Normal 3.5-5.0 [facility] Comment on above: Performed By: #### C BC, BMP ####[facility] ([id number])5200 [place] [address] Sodium [Moles/Vol] 134 mmol/L Normal 134-146 [facility] Comment on above: Performed By: #### C BC, BMP ####[facility] ([id number])5200 [facility] [address] Urea nitrogen [Mass/Vol] 21 mg/dL Normal 5-23 [facility] Comment on above: Performed By: #### C BC, BMP ####[facility] ([id number])5[address] [facility] [place] [address] COMPLETE BLOOD COUNTon 05-05 Erythrocyte distribution width (RBC) [Ratio] 23.3 % High 11.5-15.0 [facility] Comment on above: Performed By: #### C BC, BMP ####[facility] ([id number])[address] [place] [address] Hematocrit (Bld) [Volume fraction] 19.0 % Low 35-47 [facility] Comment on above: Performed By: #### C BC, BMP ####[facility] ([id number])5200 [facility] [place] [address] Hemoglobin (Bld) [Mass/Vol] 6.3 g/dL Critically low 11.7-15.5 [facility] Comment on above: Performed By: #### C BC, BMP ####[facility] ([id number])5200 [facility] [place] [address] MCH (RBC) [Entitic mass] 29.5 pg Normal 27-34 [facility] Comment on above: Performed By: #### C BC, BMP ####[facility] ([id number])5200 [facility] [place] [address] MCHC (RBC) [Mass/Vol] 33.5 g/dL Normal 32-36 [facility] Comment on above: Performed By: #### C BC, BMP ####[facility] ([id number])5200 [facility] [place] [address] MCV (RBC) [Entitic vol] 88 fL Normal 80-100 [facility] Comment on above: Performed By: #### C BC, BMP ####[facility] ([id number])5200 [facility] [place] [address] Platelet mean volume (Bld) [Entitic vol] 6.9 fL Low 7-12 [facility] Comment on above: Performed By: #### C BC, BMP ####[facility] ([id number])5200 [place] [address] Platelets (Bld) [#/Vol] 119 10*3/uL Low 150-450 [facility] Comment on above: Performed By: #### C BC, BMP ####[facility] ([id number])5200 [place] [address] RBC COUNT 2.15 X10E12/L Low 3.80-5.20 [facility] Comment on above: Performed By: #### C BC, BMP ####[facility] ([id number])5200 [place] [address] WBC (Bld) [#/Vol] 3.1 10*3/uL Low 4.0-11.0 [facility] Comment on above: Performed By: #### C BC, BMP ####[facility] ([id number])5[address] [place] [address] HGBon 05-05-2024 Hematocrit (Bld) [Volume fraction] 21.5 % Low 35-47 [facility] Comment on above: Performed By: #### H H ####[facility] ([id number])5[address] [place] [address] Hemoglobin (Bld) [Mass/Vol] 7.4 g/dL Low 11.7-15.5 [facility] Comment on above: Performed By: #### H H ####[facility] ([id number])5200 [place] [address] ANAEROBE CULTUREon 5 Bacteria identified Anaer cx Nom (Unsp spec) SPECIMEN NOTES SPEC A CULTURE RESULTS NO GROWTH 5 DAYS Normal [facility] Comment on above: Performed By: #### 6 35-3 ####[facility] ([id number])2[address] [facility], [address] [address] Bacteria identified Anaer cx Nom (Unsp spec) SPECIMEN NOTES SPEC D CULTURE RESULTS NO GROWTH 5 DAYS Normal [facility] Comment on above: Performed By: #### 6 35-3 ####[facility] ([id number])[address], [address], [place] [address] Bacteria identified Anaer cx Nom (Unsp spec) SPECIMEN NOTES SPEC B CULTURE RESULTS NO GROWTH 5 DAYS Normal [facility] Comment on above: Performed By: #### 6 35-3 ####[facility] ([id number])[address], [address], [place] [address] Bacteria identified Anaer cx Nom (Unsp spec) SPECIMEN NOTES SPEC C CULTURE RESULTS NO GROWTH 5 DAYS Normal [facility] Comment on above: Performed By: #### 6 35-3 ####[facility] ([id number])[address], [address] [address] Amikacin trough [Mass/Vol]on 05-04-2024 Amikacin, Trough, S <0.8 Normal <8.0 [facility] Comment on above: Result Comment: NOTE Test Performed by:[address] Director: Colten Sosa Ph.D.; CLIA# [id number] Performed By: #### 3 321-7 ####[facility] ([id number])5200 [place] [address] FUNGAL CULTUREon 05-04-2024 Fungus identified Cx Nom (Unsp spec) SPECIMEN NOTES SPEC D FUNGAL SMEAR NO FUNGAL ELEMENTS SEEN ON DIRECT SMEAR CULTURE RESULTS Mycobacterium Abscessus FOR SUSCEPTIBILITY, SEE PREVIOUS REPORT. [facility] Comment on above: Performed By: #### 5 80-1 ####[facility] ([id number])[address], [address], [place] [address] Fungus identified Cx Nom (Unsp spec) SPECIMEN NOTES SPEC B FUNGAL SMEAR NO FUNGAL ELEMENTS SEEN ON DIRECT SMEAR CULTURE RESULTS Mycobacterium Abscessus FOR SUSCEPTIBILITY, SEE PREVIOUS REPORT. Normal [facility] Comment on above: Performed By: #### 5 80-1 ####[facility] ([id number])[address], [address] [address] Fungus identified Cx Nom (Unsp spec) SPECIMEN NOTES SPEC A FUNGAL SMEAR NO FUNGAL ELEMENTS SEEN ON DIRECT SMEAR CULTURE RESULTS Mycobacterium Abscessus FOR SUSCEPTIBILITY, SEE PREVIOUS REPORT. [facility] Comment on above: Performed By: #### 5 80-1 ####[facility] ([id number])[address], [address] [address] Fungus identified Cx Nom (Unsp spec) SPECIMEN NOTES SPEC C FUNGAL SMEAR NO FUNGAL ELEMENTS SEEN ON DIRECT SMEAR CULTURE RESULTS Mycobacterium Abscessus FOR SUSCEPTIBILITY, SEE PREVIOUS REPORT. [facility] Comment on above: Performed By: #### 5 80-1 ####[facility] ([id number])[address], [address] [address] TISSUE CULTUREon 05-04-2024 Bacteria identified Aer cx Nom (Tiss) SPECIMEN NOTES SPEC C GRAM STAIN 0 WHITE BLOOD CELLS/LPF 0 SQUAMOUS EPITHELIAL CELLS/LPF NO ORGANISMS SEEN CULTURE RESULTS NO GROWTH 7 DAYS [facility] Comment on above: Performed By: #### 6 27-0 ####[facility] ([id number])[address], [address] [address] Bacteria identified Aer cx Nom (Tiss) SPECIMEN NOTES SPEC B GRAM STAIN 0 WHITE BLOOD CELLS/LPF 0 SQUAMOUS EPITHELIAL CELLS/LPF NO ORGANISMS SEEN CULTURE RESULTS NO GROWTH 7 DAYS [facility] Comment on above: Performed By: #### 6 27-0 ####[facility] ([id number])[address], [address] [address] Bacteria identified Aer cx Nom (Tiss) SPECIMEN NOTES SPEC A GRAM STAIN 0 WHITE BLOOD CELLS/LPF 0 SQUAMOUS EPITHELIAL CELLS/LPF NO ORGANISMS SEEN CULTURE RESULTS NO GROWTH 7 DAYS [facility] Comment on above: Performed By: #### 6 27-0 ####[facility] ([id number])[address], [address], [place] [address] Bacteria identified Aer cx Nom (Tiss) SPECIMEN NOTES SPEC D GRAM STAIN 0 WHITE BLOOD CELLS/LPF 0 SQUAMOUS EPITHELIAL CELLS/LPF NO ORGANISMS SEEN CULTURE RESULTS NO GROWTH 7 DAYS Normal [facility] Comment on above: Performed By: #### 6 27-0 ####[facility] ([id number])[address], [address], [place] [address] BASIC METABOLIC PANLon 05-03 Anion gap [Moles/Vol] 6 mmol/L Normal 5-15 [facility] Comment on above: Performed By: #### C BC, BMP ####[facility] ([id number])0 [place] [address]#### 6793-4 ####[facility] ([id number])[address] [address] [place] [address] Calcium [Mass/Vol] 8.7 mg/dL Normal 8.5-10.5 [facility] Comment on above: Performed By: #### C BC, BMP ####[facility] ([id number])[address] [place] [address]#### 6793-4 ####[facility] ([id number])[address] [address], [place] [address] Chloride [Moles/Vol] 108 mmol/L Normal 98-109 [facility] Comment on above: Performed By: #### C BC, BMP ####[facility] ([id number])[address] [place] [address]#### 6793-4 ####[facility] ([id number])[address] [address] [address] CO2 [Moles/Vol] 23 mmol/L Normal 22-32 [facility] Comment on above: Performed By: #### C BC, BMP ####[facility] ([id number])[address] [place] [address]#### 6793-4 ####[facility] ([id number])[address] [address] Creatinine [Mass/Vol] 0.93 mg/dL Normal 0.40-1.00 [facility] Comment on above: Result Comment: METH OD TRACEABLE TO IDMS STANDARD Performed By: #### C KEVIN, BMP ####[facility] ([id number])[address] [place] [address]#### 6793-4 ####[facility] ([id number])[address] [address] GFR/1.73 sq M.predicted among non-blacks MDRD (S/P/Bld) [Vol rate/Area] 73 mL/min/{1.73_m2} Normal >59 [facility] Comment on above: Result Comment: Repo rted eGFR is based on theCKD-EPI 2020 equation that doesnot use a race coefficient. Performed By: #### Jamal BROWN, BMP ####[facility] ([id number])[address] [place] [address]#### 6793-4 ####[facility] ([id number])[address] [address] [place] [address] Glucose [Mass/Vol] 159 mg/dL High 65-99 [facility] Comment on above: Performed By: #### Jamal BROWN, BMP ####[facility] ([id number])[address] [place] [address]#### 6793-4 ####[facility] ([id number])[address] [address] [place] [address] Potassium [Moles/Vol] 4.3 mmol/L Normal 3.5-5.0 [facility] Comment on above: Performed By: #### Jamal BROWN, BMP ####[facility] ([id number])[address] [place] [address]#### 6793-4 ####[facility] ([id number])[address] [address] Sodium [Moles/Vol] 137 mmol/L Normal 134-146 [facility] Comment on above: Performed By: #### C BC, BMP ####[facility] ([id number])[address] [place] [address]#### 6793-4 ####[facility] ([id number])[address] [address] Urea nitrogen [Mass/Vol] 21 mg/dL Normal 5-23 [facility] Comment on above: Performed By: #### C BC, BMP ####[facility] ([id number])[address] [place] [address]#### 6793-4 ####[facility] ([id number])[address] [address] BLOOD CULTUREon 05-03-2024 Bacteria identified Aer cx Nom (Bld) SPECIMEN NOTES SUBOPTIMAL VOLUME OF BLOOD COLLECTED, RESULTS MAY BE AFFECTED. CULTURE RESULTS NO GROWTH 5 DAYS Normal [facility] Comment on above: Performed By: #### 1 7928-3 ####[facility] ([id number])[address] [address] Bacteria identified Aer cx Nom (Bld) CULTURE RESULTS NO GROWTH 5 DAYS Normal [facility] COMPLETE BLOOD COUNTon 05-03 Erythrocyte distribution width (RBC) [Ratio] 22.3 % High 11.5-15.0 [facility] Comment on above: Performed By: #### C BC, BMP ####[facility] ([id number])[address] [place] [address]#### 6793-4 ####[facility] ([id number])[address], [address] [address] Hematocrit (Bld) [Volume fraction] 22.7 % Low 35-47 [facility] Comment on above: Performed By: #### C BC, BMP ####[facility] ([id number])[address] [place] [address]#### 6793-4 ####[facility] ([id number])[address] [address] Hemoglobin (Bld) [Mass/Vol] 7.5 g/dL Low 11.7-15.5 [facility] Comment on above: Performed By: #### C BC, BMP ####[facility] ([id number])[address] [place] [address]#### 6793-4 ####[facility] ([id number])[address], [place] [address] MCH (RBC) [Entitic mass] 29.4 pg Normal 27-34 [facility] Comment on above: Performed By: #### C BC, BMP ####[facility] ([id number])[address] [place] [address]#### 6793-4 ####[facility] ([id number])[address], [address], [place] [address] MCHC (RBC) [Mass/Vol] 33.2 g/dL Normal 32-36 [facility] Comment on above: Performed By: #### C BC, BMP ####[facility] ([id number])[address] [place] [address]#### 6793-4 ####[facility] ([id number])[address], [address] [address] MCV (RBC) [Entitic vol] 89 fL Normal 80-100 [facility] Comment on above: Performed By: #### C BC, BMP ####[facility] ([id number])[address] [place] [address]#### 6793-4 ####[facility] ([id number])[address], [address] [place] [address] Platelet mean volume (Bld) [Entitic vol] 7.0 fL Normal 7-12 [facility] Comment on above: Performed By: #### Jamal BC, BMP ####[facility] ([id number])[address] [place] [address]#### 6793-4 ####[facility] ([id number])[address], [address] [address] Platelets (Bld) [#/Vol] 143 10*3/uL Low 150-450 [facility] Comment on above: Performed By: #### C KEVIN, BMP ####[facility] ([id number])[address] [place] [address]#### 6793-4 ####[facility] ([id number])[address], [address] [address] RBC COUNT 2.56 X10E12/L Low 3.80-5.20 [facility] Comment on above: Performed By: #### Jamal BROWN, BMP ####[facility] ([id number])0 [place] [address]#### 6793-4 ####[facility] ([id number])[address] [address] WBC (Bld) [#/Vol] 2.7 10*3/uL Low 4.0-11.0 [facility] Comment on above: Performed By: #### C BC, BMP ####[facility] ([id number])[address] [place] [address]#### 6793-4 ####[facility] ([id number])[address], [address] [place] [address] Prealbumin IA [Mass/Vol]on 0 05-03-2024 Prealbumin [Mass/Vol] 12 mg/dL Low 18-45 [facility] Comment on above: Performed By: #### C BC, BMP ####[facility] ([id number])[address] [place] [address]#### 6793-4 ####[facility] ([id number])[address], [address] [place] [address] 36on 05-02-2024 36 Anabela with [facility] lab faxing over Amikacin trough from 04/27 [facility] ANAEROBE CULTUREon Bacteria identified Anaer cx Nom (Unsp spec) SPECIMEN NOTES SPECIMEN A CULTURE RESULTS NO GROWTH 5 DAYS Normal [facility] Comment on above: Performed By: #### 6 35-3 ####[facility] ([id number])[address], [address] [place] [address] CATHETER TIP CULTUREon 05-02 Bacteria identified Cx Nom (Catheter tip) CULTURE RESULTS NO GROWTH 2 DAYS Normal [facility] Comment on above: Performed By: #### 1 9128-8 ####[facility] ([id number])[address], [address] [place] [address] FUNGAL CULTUREon 05-02-2024 Fungus identified Cx Nom (Unsp spec) [facility] Comment on above: Performed By: #### 5 80-1 ####[facility] ([id number])[address], [address] [place] [id number] SEND OUT TESTon 05-02-2024 SENT TO [facility] VIA FED EX [phone] [facility] SPECIMEN ISOLATE FROM LEFT CHEST TISSUE SPECIMEN A [facility] TEST NAME: [id number] TO [facility] TEST RESULT See separate report. View in OnBase or in EPIC. 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 CULTURE FOR SPECIATION AND SUSCEPTIBILITY [facility] Comment on above: Performed By: #### 6 27-0 ####[facility] ([id number])[address] [facility], [address] [address] Documentationon 04-28-2024 Documentation [id number] Ike Flannery 1970 F Date Provider Department Center 04/28/2024 184-LUI, [facility] Heal Family History Adopted: Yes Problem Relation Age of Onset Heart attack Father Family Status - Relation Status Age at Father Normal [facility] Documentation [id number] Ike Flannery 1970 F Date Provider Department Center 04/28/2024 184-LUI, [facility] UTCF INFEC UTCF Family History Adopted: Yes Problem Relation Age of Onset Heart attack Father Family Status - Relation Status Age at Father Normal [facility] Documentationon 04-27-2024 Documentation [id number] Ike Flannery 1970 F Date Provider Department Center 04/27/2024 184-LUI, [facility] Anthony Heal Family History Adopted: Yes Problem Relation Age of Onset Heart attack Father Family Status - Relation Status Age at Father Normal [facility] Abstracton 04-26-2024 Abstract [id number] Ike Flannery 1970 F Date Provider Department Center 04/26/2024 184-LUI, [facility] Anthony Heal Family History Adopted: Yes Problem Relation Age of Onset Heart attack Father Family Status - Relation Status Age at Father Normal [facility] Documentationon 04-26-2024 Documentation [id number] Ike Flannery 1970 F Date Provider Department Center 04/26/2024 184-LUI, [facility] Anthony Heal Family History Adopted: Yes Problem Relation Age of Onset Heart attack Father Family Status - Relation Status Age at Father Normal [facility] [facility] 36on 04-25-2024 36 RN called to request most recent labs be faxed to [facility] ID. Fax number confirmed [facility] Abstracton 04-25-2024 Abstract [id number] Ike Flannery 1970 F Date Provider Department Center 04/25/2024 AVI BO [facility] Family History Adopted: Yes Problem Relation Age of Onset Heart attack Father Family Status - Relation Status Age at Father [facility] Follow-Upon 04-20-2024 Follow-Up [id number] Ike Flannery 1970 F Date [facility] Department Center 04/20/2024 HERMAN VITAL [facility] INF Anthony Heal Family History Adopted: Yes Problem Relation Age of Onset Heart attack Father Family Status - Relation Status Age at Father Level of Service:66413 MD OFFICE/OUTPATIENT ESTABLISHED MOD MDM 30 MIN [facility] 36on 04-19-2024 36 On 04/18/24 at 09:20 AM, on behalf of Dr. Herman Lui, I contacted [facility] Microbiology Department to check for any updates on the patient's cultures sent to [facility] outside [facility]. This is the second phone call that I have made to follow up, with the first call being conducted on 11APR2024. Based on the timeline listed on the [facility] microbiological report, it is anticipated that final susceptibilities should have resulted from the 02/19/24 tissue culture and so be available to be faxed over to [facility]. I gave my fax number to the [facility] laboratory personnel and they stated that they would fax the microbiology report(s) to me when available. I asked the laboratory personnel to please call [facility] laboratory to try to expedite follow up since the patient has an appointment on 20APR2024. Will continue to monitor and follow up as appropriate. Avi Tobar, PharmD, BCPS; 04/19/2024 [facility] Telephoneon 04-19-2024 Telephone [id number] Ike Flannery 1970 F Date Provider Department Center 04/19/2024 ShubhamNicolasHERMAN LUI [facility] INF Anthony Heal Family History Adopted: Yes Problem Relation Age of Onset Heart attack Father Family Status - Relation Status Age at Father [facility] 04-18-2024 36 RN called to request Amikacin peak level be faxed to [facility] ID. Confirmed fax number with Anabela. Confirmed patient will have Amikacin trough drawn at infusion today with Anabela. [facility] 36on 04-15-2024 36 Call to [facility] and confirmed that pt is starting Amikacin today with peak being drawn then. They will schedule for Thursday for her trough prior to her second dose. [facility] Orders Onlyon 04-15-2024 Orders Only [id number] Ike Flannery 1970 F Date Provider Department Center 04/15/2024 HERMAN VITAL [facility] IN[facility]EC [facility] Family History Adopted: Yes Problem Relation Age of Onset Heart attack Father Family Status - Relation Status Age at Father [facility] 36on 04-13-2024 36 Message left for [facility] asking about starting Amikacin. Awaiting their call back. [facility] Auditory function testson Bilateral mild sensorineural hearing loss above 3K Hz [facility] 04-12-2024 36 After multiple calls and multiple orders sent pt is scheduled for her hearing test in [facility] 04/13. Orders were called and faxed to [facility] for the first dose of Amikacin. Orders also called and faxed to Dania at [facility] for continuation of Amikacin 3 times weekly for 6 weeks. Will follow up with [facility] to see how soon they will have the med for the first dose. Normal [facility] ALL CBC WITH AUTO DIFFon BASOPHILS ABSOLUTE AUTO 0 [facility] Basophils/100 WBC (Bld) 0.6 % 0.2 - 2.0 % [facility] Eosinophils/100 WBC (Bld) 5.3 % 0.9 - 7.0 % [facility] Erythrocyte distribution width (RBC) [Ratio] 16.7 % High 11.0 - 15.0 % [facility] Hematocrit (Bld) [Volume fraction] 28.9 % Low 36.0 - 48.0 % [facility] Hemoglobin (Bld) [Mass/Vol] 9.6 g/dL Low 12.0 - 16.0 g/dL [facility] IMMATURE GRANULOCYTES ABS AUTO 0.01 [facility] Immature granulocytes/100 WBC (Bld) 0.2 % 0.0 - 0.5 % [facility] Interpretation and review of laboratory results Abnormal [facility] LYMPHOCYTES ABSOLUTE AUTO 0.7 Low [facility] Lymphocytes/100 WBC (Bld) 12.4 % Low 20.5 - 60.0 % [facility] MCH (RBC) [Entitic mass] 30.7 pg 26.7 - 34.0 pg [facility] MCHC (RBC) [Mass/Vol] 33.2 g/dL 29.9 - 35.2 g/dL [facility] MCV (RBC) [Entitic vol] 92.3 fL 81.0 - 99.0 fL [facility] MONOCYTES ABSOLUTE AUTO 0.5 [facility] Monocytes/100 WBC (Bld) 9.7 % 1.7 - 12.0 % [facility] NEUTROPHILS ABSOLUTE AUTO 3.8 [facility] Neutrophils/100 WBC (Bld) 71.8 % 43.0 - 75.0 % [facility] Platelet mean volume (Bld) [Entitic vol] 8.8 fL Low 9.5 - 13.5 fL [facility] TBH EO # 0.3 [facility] TB PLT 258 [facility] TB RBC 3.13 Low [facility] TB WBC 5.3 [facility] [place] 04-07-2024 L -- ---- Specimen: [id number] Received: 04/07/24 Status: EUGENIO Lentz Num: [id number] Spec Type: Surgical Subm Dr: Evan Thompson Tissues: A Ovary W/ or W/O Fallopian Tube, Non-Neoplastic (BILATERAL FALLOPIAN TUBES AN Procedures: , Gross/Micro L4 ---- Age/ Patient Sex Location Account Attending Physician ---- Ike Flannery 53/F LABELL [id number] Evan Thompson ---- SPEC NUM: [id number] RECD: 04/07/24 STATUS: EUGENIO LENTZ NUM: [id number] AMY: 04/07/[address]: Evan Thompson ENTERED: 04/07/24 [facility] DR: Suzanne,Lab SPEC TYPE: Surgical DEPT: JORGE ALBERTO ROSALES ORDERED: , Gross/Micro L4 ORDERED: , Gross/Micro L4 Pathological Diagnosis Bilateral ovaries and fallopian tubes, bilateral salpingo-oophorectomy: -Ovary #1 with a few corpus albicans [...] by 0.4 cm diameter). Sectioning into ovary ---- Specimen: [id number] Received: 04/07/24 Status: EUGENIO Lentz Num: [id number] Spec Type: Surgical Subm Dr: Evan Thompson Tissues: A Ovary W/ or W/O Fallopian Tube, Non-Neoplastic (BILATERAL FALLOPIAN TUBES AN Procedures: , Gross/Micro L4 ---- Patient: Ike Flannery [id number] (Continued) ---- Specimen: [id number] Received: 04/07/24 (Continued) Gross Description (Continued) Signed (signature on file) Elvis Mcgregor MD 04/08/24 1517 ---- Specimen: [id number] Received: 04/07/24 Status: EUGENIO Lentz Num: [id number] Spec Type: Surgical Subm Dr: Evan Thompson Tissues: A Ovary W/ or W/O Fallopian Tube, Non-Neoplastic (BILATERAL FALLOPIAN TUBES AN Procedures: Vahe/Micro L4 ---- Patient: Ike Flannery [id number] (Continued) ---- Specimen: [id number] Received: 04/07/24-1222 (Continued) Gross Description (Continued) #1 reveals a [...] performed supporting the above interpretation CPT Codes 69848 ---- ---- Specimen: [id number] Rec (more content not included)... Normal [facility] 36on 04-04-2024 36 RN called to request most recent labs be faxed to [facility] ID. Fax number confirmed Normal [facility] [phone] 36 Order Faxed to [phone] For Hearing test. [facility] 36on 03-31-2024 36 Called patient as follow up [...] of the damaged/infected tissue done by Dr. Gross, that the remaining healthy tissue should have [...] the EKG done. 5.Patient is going to [facility] on 04/01/24 to receive pembrolizumab infusion. She is also going to get labs drawn at that time. Avi Tobar, SukiD, BCPS [facility] 36 Thank you. Keep me posted :) [facility]. Second call to pt to see if she has scheduled the baseline hearing test so we can proceed with starting Amikacin. Awaiting her call back. [facility] Telephoneon 03-31-2024 Telephone [id number] Ike Flannery Yumi 1970 F Date Provider Department Center 03/31/2024 HERMAN VITAL [facility] INF Anthony Heal Family History Adopted: Yes Problem Relation Age of Onset Heart attack Father Family Status - Relation Status Age at Father [facility] 36on 03-28-2024 36 Followed up with [...] is out of tedizolid. I called the [facility] and they are going to [...] I would follow up. Avi Tobar, PharmD, [facility] Telephoneon 03-28-2024 Telephone [id number] Ike Flannery 1970 F Date Provider Department Center 03/28/2024 104Capo-AVI TOBAR [facility] INF Anthony Heal Family History Adopted: Yes Problem Relation Age of Onset Heart attack Father Family Status - Relation Status Age at Father Normal [facility] ANAEROBE CULTUREon Bacteria identified Anaer cx Nom (Unsp spec) CULTURE RESULTS NO GROWTH 5 DAYS Normal [facility] Comment on above: Performed By: #### 6 35-3 ####[facility] ([id number])[address] [place] [address], [address] [place] [address] FUNGAL CULTUREon 03-21-2024 Fungus identified Cx Nom (Unsp spec) Normal [facility] Comment on above: Performed By: #### 5 80-1 ####[facility] ([id number])[address] [facility] [address] HGB AND HCTon 03-21-2024 Hematocrit (Bld) [Volume fraction] 21.4 % Low 35-47 [facility] Comment on above: Performed By: #### H H ####[facility] ([id number])[address] [place] [address] Hemoglobin (Bld) [Mass/Vol] 7.5 g/dL Low 11.7-15.5 [facility] Comment on above: Performed By: #### H H ####[facility] ([id number])[address] [place] [address] SEND OUT TESTon 03-21-2024 SENT TO [facility] [place] Normal [facility] Comment on above: Result Comment: [id number] SPECIMEN LJ SLANT FROM LEFT BREAST TISSUE Normal [facility] TEST NAME: [facility] AFB4 FULL IDENTIFICATION Normal [facility] TEST NAME: [facility] APPR O AFB SUSCEPTIBITIES AND GENE RESISTANCE Normal [facility] TEST RESULT See separate report. View in OnBase or in Intellistream. Normal [facility] TISSUE CULTUREon 03-21-2024 Bacteria identified Aer cx Nom (Tiss) GRAM STAIN 0 to 1 WHITE BLOOD CELLS/LPF 0 SQUAMOUS EPITHELIAL CELLS/LPF NO ORGANISMS SEEN CULTURE RESULTS NO GROWTH 3 DAYS Normal [facility] Comment on above: Performed By: #### 6 27-0 ####[facility] ([id number])[address] [facility], [address] [place] [address] 36on 03-18-2024 36 Pt is to start on Amikacin 3 times weekly but has an upcoming trip to [place] planned. Spoke with pt and she returns 03/27. Spoke with Dania at [facility], Mary[facility] [employer] and Dr Lui regarding how to proceed. Pt will need a baseline hearing test and first dose to be given at [facility] after pt returns 03/28 with a peak 30-60 mins after first dose then a trough 30-60 mins prior to second dose with weekly troughs there after. Peak goal of 32 and trough goal near 0. Continue weekly cbc, creat, lft. Spoke with pt and she is in agreement with the plan. Will work on coordinating care with [facility] for first dose. Pt will schedule her hearing test and will call if it can't be done prior to 03/28. Normal [facility] Orders Onlyon 03-18-2024 Orders Only [id number] Ike Flannery 1970 F Date Provider Department Center 03/18/2024 Erica-MARYBEL AARON [facility] INFEC [facility] Family History Adopted: Yes Problem Relation Age of Onset Heart attack Father Family Status - Relation Status Age at Father [facility] 36on 03-17-2024 36 I called [facility] Oncologist Dr. Aarti Hope and directly spoke [...] clofazimine is somewhat limited as data from olive knocker is derived from in vitro information and [...] will be made as appropriate. Avi Tobar, PharmD, [facility] Clinical Research Pharmacist Office Number: [phone] Normal [facility] Telephoneon 03-17-2024 Telephone [id number] Ike Flannery 1970 Date Provider Department Center 03/17/2024 JOSSY ESQUEDA [facility] INF Anthony Heal Family History Adopted: Yes Problem Relation Age of Onset Heart attack Father Family Status - Relation Status Age at Father Normal [facility] Follow-Upon 03-16-2024 Follow-Up [id number] Ike Flannery 1970 Date Provider Department Center 03/16/2024 JOSSY ESQUEDA [facility] INF Anthony Heal Family History Adopted: Yes Problem Relation Age of Onset Heart attack Father Family Status - Relation Status Age at Father Level of Service:30596 MD OFFICE/OUTPATIENT ESTABLISHED LOW MDM 20 MIN Normal [facility] Orders Onlyon 03-16-2024 Orders Only [id number] Ike Flannery 1970 Date Provider Department Center 03/16/2024 104AVI FRANCES [facility] INF Anthony Heal Family History Adopted: Yes Problem Relation Age of Onset Heart attack Father Family Status - Relation Status Age at Father Normal [facility] Orders Only [id number] Ike Flannery 1970 Date Provider Department Center 03/16/2024 161-SHAMAR AARONED [facility] INF Anthony Heal Family History Adopted: Yes Problem Relation Age of Onset Heart attack Father Family Status - Relation Status Age at Father Normal [facility] 36on 03-15-2024 36 from [facility] called and would like to speak with you regarding patient. Stated it was urgent patient is scheduled to see them in office at 11 am Cell phone [phone] [facility] Telephoneon 03-15-2024 Telephone [id number] Ike Flannery 1970 Date Provider Department Center 03/15/2024 87ODALYS STEPHENS [facility] INF Anthony Heal Family History Adopted: Yes Problem Relation Age of Onset Heart attack Father Family Status - Relation Status Age at Father [facility] Orders Onlyon 03-11-2024 Orders Only [id number] Ike Flannery 1970 F Date Provider Department Center 03/11/2024 JOSSY ESQUEDA [facility] INF Anthony Heal Family History Adopted: Yes Problem Relation Age of Onset Heart attack Father Family Status - Relation Status Age at Father [facility] 36on 03-10-2024 36 [facility] is prescribing the imipenem and she will run out on 03/15/24. Spoke to pharmacist at 9:36am and they will extend until 03/16/24. [facility] 36on 03-09-2024 36 Thanks, I'm aware spoke to about sending additional susceptibilities [facility] 36 Pt called and stated her antibiotics is set to end on 03/15/24. Appt scheduled with you on 03/16/24. Pt wanted to know if she need to continue antibiotics ? [facility] Telephoneon 03-09-2024 Telephone [id number] Ike Flannery 1970 F Date Provider Department Center 03/09/2024 ODALYS ACEVES [facility] INF [facility] Family History Adopted: Yes Problem Relation Age of Onset Heart attack Father Family Status - Relation Status Age at Father [facility] 36on 03-04-2024 36 [facility], Shen Dickson called that patient has a positive AFB. Culture was taken on 02/25 on the left breast wound tissue. Phone number in case there is follow-up is: [phone]. [facility] Telephoneon 03-04-2024 Telephone [id number] Ike Flannery 1970 F Date Provider Department Center 03/04/2024 DOMINGO STUART [facility] [place] Family History Adopted: Yes Problem Relation Age of Onset Heart attack Father Family Status - Relation Status Age at Father Reason for Visit and Comments: Results [95] [facility] 36on 03-03-2024 36 Labs will be sent al l except CBC with will be drawn tomorrow 1/3. Normal [facility] 36on 02-29-2024 36 Vm left for labs. Normal [facility] AF[facility] CULTURE(CONCENTRATED)on 02-26-2024 Mycobacterium sp identified Org specific cx Nom (Unsp spec) AFB SMEAR FEW ACID FAST BACILLI SEEN ON CONCENTRATED SMEAR CULTURE RESULTS Mycobacterium Abscessus SSP. ABSCESSUS SEE SEPARATE REPORT FOR SUSCEPTIBILITY RESULT 07.09.24 [facility] Comment on above: Performed By: #### 5 43-9 ####[facility] ([id number])[address], [address] [place] [address] ANAEROBE CULTUREon Bacteria identified Anaer cx Nom (Unsp spec) CULTURE RESULTS NO GROWTH 5 DAYS [facility] Comment on above: Performed By: #### 6 35-3 ####[facility] ([id number])[address], [address] [place] [address] FUNGAL CULTUREon 02-26-2024 Fungus identified Cx Nom (Unsp spec) FUNGAL SMEAR NO FUNGAL ELEMENTS SEEN ON DIRECT SMEAR CULTURE RESULTS NO FUNGUS ISOLATED AFTER 4 WEEKS [facility] Comment on above: Performed By: #### 5 80-1 ####[facility] ([id number])[address], [address] [place] [address] SEND OUT TESTon 02-26-2024 SENT TO [facility] Comment on above: Result Comment: [id number] SPECIMEN LEFT BREAST WOUND LJ SLANT [facility] TEST NAME: [facility] APPR O SUSCEPTIBILTY AND GENE RESISTANCE TESING [facility] TEST RESULT See separate report. View in OnBase or in EPIC. [facility] TISSUE CULTUREon 02-26-2024 Bacteria identified Aer cx Nom (Tiss) GRAM STAIN >25 WHITE BLOOD CELLS/LPF 0 SQUAMOUS EPITHELIAL CELLS/LPF NO ORGANISMS SEEN CULTURE RESULTS MANY Mycobacterium Abscessus GROWTH OBSERVED AT 3RD DAY See AFB Culture for susceptibility testing. [facility] Comment on above: Performed By: #### 6 27-0 ####[facility] ([id number])[address] [facility], [address] [place] [address] Orders Onlyon 02-17-2024 Orders Only [id number] Ike Flannery 1970 F Date Provider Department Center 02/17/2024 AVI BO [facility] Family [facility] Adopted: Yes Problem Relation Age of Onset Heart attack Father Family Status - Relation Status Age at Father [facility] Follow-Upon 02-16-2024 Follow-Up [id number] Ike Flannery 1970 F Date Provider Department Center 02/16/2024 HERMAN VITAL [facility] INF [facility] Family History Adopted: Yes Problem Relation Age of Onset Heart attack Father Family Status - Relation Status Age at Father Level of Service:03682 MD OFFICE/OUTPATIENT ESTABLISHED MOD MDM 30 MIN [facility] 36on 02-15-2024 36 Put in a refill for tedizolid. Imipenem is IV, can we extend that by 4 weeks while we wait for the omadacycline PA to go through. [facility] 36 Pt called and stated she need refill on both medications you prescribed. [facility] 36 I called [facility], general number [phone], then connected to Medical Records (calling from physician's office). Spoke to Seema, who will fax over EKG results from 01/27/24. I instructed Seema to please send over as soon as possible. These EKG results are needed for baseline procedure, prior to taking clofazimine, and to be uploaded into [email or web address] for clinical review. Avi Tobar, PharmD, BCPS; Clinical Research Pharmacist [facility] Orders Onlyon 02-15-2024 Orders Only [id number] Ike Flannery 1970 F Date Provider Department Center 02/15/2024 HERMAN VITAL [facility] IN[facility] Family History Adopted: Yes Problem Relation Age of Onset Heart attack Father Family Status - Relation Status Age at Father [facility] Telephoneon 02-15-2024 Telephone [id number] Ike Flannery 1970 F Date Provider Department Center 02/15/2024 184-HUHERMAN [facility] INF Anthony Heal Family History Adopted: Yes Problem Relation Age of Onset Heart attack Father Family Status - Relation Status Age at Father Normal [facility] Telephone [id number] Ike Flannery 1970 F Date Provider Department Center 02/15/2024 870-ODALYS DAVIS [facility] INF Anthony [facility] Family History Adopted: Yes Problem Relation Age of Onset Heart attack Father Family Status - Relation Status Age at Father [facility] 36on 02-12-2024 36 Thank you [facility] 36on 02-11-2024 36 This was also faxed to office [phone] [facility] 36 Letter/note entered into [email or web address] [facility] 36 Voicemail left on 02/10 at 11:25 AM and patient call received on 02/10 at 11:39 AM. This patient is part of an investigational new drug single patient expanded access program for clofazimine, IND #[id number]. As the Clinical Research Pharmacist, I called the patient to follow up on clofazimine monitoring. EKG was done at [place] on 01/26, however, it appears that results were not faxed to ID clinic. Fax number [phone] provided. Patient to get CMP and other [...] insurance. I am available at office phone [phone] with questions. [facility] 36 Patient called and stated her director of medical review Dr. Morris did PA on OMADACYCLINE but it was denied. He requested the patient call us and see if you can type a letter to support why patient need medication. [facility] Documentationon 02-11-2024 Documentation [id number] Ike Flannery 1970 F Date Provider Department Center 02/11/2024 HERMAN VITAL [facility] INF Anthony Heal Family History Adopted: Yes Problem Relation Age of Onset Heart attack Father Family Status - Relation Status Age at Father [facility] Telephoneon 02-11-2024 Telephone [id number] Ike Flannery 1970 F Date Provider Department Center 02/11/2024 AmarilysSUZIGUADALUPENAEEMAVI [facility]HC INF Anthony Heal Family History Adopted: Yes Problem Relation Age of Onset Heart attack Father Family Status - Relation Status Age at Father [facility] Telephone [id number] Ike Flannery 1970 F Date Provider Department Center 02/11/2024 ODALYS ACEVES [facility] INF Anthony Heal Family History Adopted: Yes Problem Relation Age of Onset Heart attack Father Family Status - Relation Status Age at Father [facility] Telephoneon 02-08-2024 Telephone [id number] Ike Flannery 1970 Date Provider Department Center 02/08/2024 HERMAN VITAL [facility] INF Anthony Heal Family History Adopted: Yes Problem Relation Age of Onset Heart attack Father Family Status - Relation Status Age at Father [facility] 36on 02-03-2024 36 Spoke to her Thursday, given that she is on tedizolid and imipenem the amoxicillin unlikely to be helpful. Not uncommon to have strep colonization in adults, if she is still having pharyngeal pain and discomfort it may be viral. [facility] 36on 02-02-2024 36 Patient states that amoxicillin is not working & strep is getting worse. She is asking is you would call her in a stronger antibiotic/please advise Patient is scheduled 02/15 at 4:00 pm. Calling Suzanne for weekly labs. Patient was informed with the imipenem & tedizolid should take care of any strep that patient would have, it could also be viral but would not know without seeing patient./per Dr. Lui Left patient a voice mail X 1./lss [facility] Telephoneon 02-02-2024 Telephone [id number] Ike Flannery 1970 F Date Provider Department Center 02/02/2024 GINO HUMPHREY [facility] INF Anthony Heal Family History Adopted: Yes Problem Relation Age of Onset Heart attack Father Family Status - Relation Status Age at Father [facility] 36on 02-01-2024 36 Patient called gale stewart that over the weekend she tested positive for strep and was prescribed Amoxicillin. [facility] 36on 01-26-2024 36 RN called to request most recent labs be faxed to [facility] ID. Fax number confirmed [facility] 36on 01-25-2024 36 I called they will call me back [facility] [address] Dr Coffey called a nd wanted to talk regarding pt as soon as possible. Office - [phone] Cell- [phone] [facility] Office Visiton 01-15-2024 Follow-up visit [id number] Alma DeliaIke Yumi 1970 F Date Provider Department Center 01/15/2024 HERMAN VITAL [facility] INF Anthony Heal Family History Adopted: Yes Problem Relation Age of Onset Heart attack Father Family Status - Relation Status Age at Father Level of Service:44057 MD OFFICE/OUTPATIENT ESTABLISHED MOD MDM 30 MIN [facility] 36on 01-12-2024 36 Patients specialty pharmacy is not able to order the tedizolid (Sivextro) do the the shortage of the medication. I will call our [facility] to see if we can get it in. Rx was called in to the [facility] they are able to fill the prescription. [facility] 36on 01-08-2024 36 Patient called gale stewart that her IV antibiotics will be completed on 01/14 and that you were possibly going to do another IV antibiotic route. I saw you ordered Tedizolid and was going to fax that to her [facility]. Did you want any other IV antibiotics? Please Advise [facility] Orders Onlyon 01-04-2024 Orders Only [id number] Ike Flannery 1970 F Date Provider Department Center 01/04/2024 HERMAN VITAL [facility] Family History Adopted: Yes Problem Relation Age of Onset Heart attack Father Family Status - Relation Status Age at Father [facility] Orders Onlyon 01-01-2024 Orders Only [id number] Ike Flannery 1970 F Date Provider Department Center 01/01/2024 HERMAN VITAL [facility] INF [facility] Family History Adopted: Yes Problem Relation Age of Onset Heart attack Father Family Status - Relation Status Age at Father [facility] 37on 12-30-2023 37 Keep taking current antibiotics for now. 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 We will reach out to your Oncologist about when to restart radiation therapy. We don't anticipate deferring it at this time. Follow-up in about 1 month [facility] Follow-Upon 12-30-2023 Follow-Up [id number] Ike Flannery 1970 F Date Provider Department Center 12/30/2023 SCOTT CHU [facility] INF [facility] Family History Adopted: Yes Problem Relation Age of Onset Heart attack Father Family Status - Relation Status Age at Father Level of Service:19217 MD OFFICE/OUTPATIENT ESTABLISHED MOD MDM 30 MIN (GC) Reason for Visit and Comments: Invasive ductal carcinoma [Other] [facility] ED Clinical Summaryon 2023 ED Clinical Summary ED Clinical Summary [address] [address] ED Clinical Summary Person Information Name: IKE FLANNERY [place] Age: 53 Years : 1970 Sex: Female Language: [place] PCP: RANDY CALLE DO Marital Status: Phone: [phone] Visit Id: Visit Reason: Eye problem; NO [...] 21:34:41 12/28/2023 21:34:41 ADDRESS: [address] [place] [phone] PHYS DOC NOTES: MEDICAL INFORMATION: Prescriptions Given: Medications to Continue with No Changes Other Medications chlorthalidone as directed. cyclobenzaprine as directed. lisinopril (lisinopril 20 mg Tab) 1 Tablets By Mouth every day. metoprolol as directed. spironolactone as directed. trazodone (traZODONE 50 mg Tab) By Mouth 2 times a day. PATIENT EDUCATION INFORMATION: Instructions: Vitreous Detachment Follow up: With: Address: When: Georgiana Justice [facility] [address], [address] [place] [address] Business (1) In 1 day 12/29/2023 Comments: Please call first in the morning for same-day appointment With: Address: When: RANDY CALLE [address] [place], [place] [phone] Business (1) In 3 days DIAGNOSIS: Posterior vitreous detachment Normal [facility] ED Note-Physicianon 12-28-19 ED Note-Physician ED Note-Physician Basic Information Time Seen: Clifford Rosauraah Alex 12/28/2023 20:35 Chief Complaint PT arrives to [...] and Complexity of Problems Differential Diagnosis: [] [facility] Data External documents reviewed: N/A My [...] Georgiana Justice In 1 day 12/29/2023 EDT Critical access hospital [address] [place] [address]- Business (1) Additional Instructions: Please call first in the morning for same-day appointment RANDY CALLE In [address] [place] [address] Business (1) Additional Instructions: Patient [...] Diagnostic Results No qualifying data available. Normal [facility] Comment on above: Result Comment: Elec tronically Signed By: Rusty Horton DO\.br\Date and Time Signed: 12/28/23 21:30 EDT ED Patient Summaryon 024 ED Patient Summary ED Patient Summary [place] [address] Patient Discharge Instructions Person Information Name: IKE FLANNERY Age: 53 Years Arrival Date: 12/28/2023 20:23:14 Discharge Diagnosis: Posterior vitreous detachment Primary Care Physician: RANDY CALLE DO Provider Information Primary Provider: Rusty Horton DO Advanced Grain Roaster:None The exam and treatment you received in the Emergency Department were for an urgent problem and are not intended as complete care. It is important that you follow up with a doctor, nurse practitioner, or physician???s assistant strength coach for ongoing care. If your symptoms become worse or you do not improve as expected and you are unable to reach your usual health care provider, you should return to the Emergency Department. We are available 24 hours a day. IKE FLANNERY has been given the following list of patient education materials, prescriptions and follow-up instructions: Follow-up Instructions: With: Address: When: Georgiana Justice Critical access hospital 3, [address], [facility] [address] [place] [address] Business (1) In 1 day 12/29/2023 Comments: Please call first in the morning for same-day appointment With: Address: When: RANDY CALLE [address] [place], [place] [phone] Business (1) In 3 days In the event that this physician does not participate in your insurance network, please consult with your insurance company to find a nearby participating provider. Patient Education Materials: Vitreous Detachment A MESSAGE TO ALL PATIENTS REGARDING OPIOIDS PRESCRIPTION OPIOIDS: WHAT YOU NEED TO KNOW Prescription opioids can be used to help relieve opnzccav-ir-wrocwq pain and are often prescribed following a [...] Administration (www.fda.gov (more content not included)... Normal [facility] Office Visiton 12-11-2023 Follow-up visit [id number] Ike Flannery 1970 [facility] Provider Department Center 12/11/2023 SANDRITA HOFF [facility] Family History Adopted: Yes Problem Relation Age of Onset Heart attack Father Family Status - Relation Status Age at Father Level of Service:80890 MD OFFICE/OUTPATIENT NEW HIGH MDM 60 MINUTES Normal [facility] CBC AND AUTO DIFFon 12-09-19 24 ABSOLUTE BASOPHIL 0.0 X10E9/L Normal 0.0-0.2 [facility] Comment on above: Performed By: #### C BCA, CMP, , 2776-03 ####[facility] ([id number])5200 [facility] [place] [address] ABSOLUTE NEUTROPHIL 3.6 X10E9/L Normal 1.5-6.6 [facility] Comment on above: Performed By: #### C BCA, CMP, , 2776-03 ####[facility] ([id number])5200 [facility] [place] [address] Basophils/100 WBC (Bld) 0.2 % Normal [facility] Comment on above: Performed By: #### C BCA, CMP, , 2776-03 ####[facility] ([id number])5200 [place] [address] Eosinophils (Bld) [#/Vol] 0.0 10*3/uL Normal 0.0-0.4 [facility] Comment on above: Performed By: #### C BCA, CMP, , 2776-03 ####[facility] ([id number])5200 [place] [address] Eosinophils/100 WBC (Bld) 0.0 % Normal [facility] Comment on above: Performed By: #### C BCA, CMP, , 2776-03 ####[facility] ([id number])5200 [facility] [place] [address] Erythrocyte distribution width (RBC) [Ratio] 14.6 % Normal 11.5-15.0 [facility] Comment on above: Performed By: #### C BCA, CMP, , 2776-03 ####[facility] ([id number])5200 [facility] [address] Hematocrit (Bld) [Volume fraction] 22.0 % Low 35-47 [facility] Comment on above: Performed By: #### C LUCIA CMP, , 2776-03 ####[facility] ([id number])5200 [facility] [place] [address] Hemoglobin (Bld) [Mass/Vol] 7.4 g/dL Low 11.7-15.5 [facility] Comment on above: Performed By: #### C LUCIA, CMP, , 2776-03 ####[facility] ([id number])5200 [facility] [place] [address] Lymphocytes (Bld) [#/Vol] 0.5 10*3/uL Low 1.0-3.5 [facility] Comment on above: Performed By: #### Jamal MYERS, CMP, , 2776-03 ####[facility] ([id number])5200 [facility] [place] [address] Lymphocytes/100 WBC (Bld) 12.0 % Normal [facility] Comment on above: Performed By: #### Jamal MYERS, [facility], , 2776-03 ####[facility] ([id number])5200 [facility] [address] MCH (RBC) [Entitic mass] 29.9 pg Normal 27-34 [facility] Comment on above: Performed By: #### C LUCIA, CMP, , 2776-03 ####[facility] ([id number])5200 [facility] [place] [address] MCHC (RBC) [Mass/Vol] 33.8 g/dL Normal 32-36 [facility] Comment on above: Performed By: #### C LUCIA, CMP, 2776-03 ####[facility] ([id number])5200 [facility] [place] [address] MCV (RBC) [Entitic vol] 89 fL Normal 80-100 [facility] Comment on above: Performed By: #### C BCA, CMP, , 2776-03 ####[facility] ([id number])5[address] [place] [address] Monocytes (Bld) [#/Vol] 0.2 10*3/uL Normal 0-0.9 [facility] Comment on above: Performed By: #### C BCA, CMP, , 2776-03 ####[facility] ([id number])[address] [place] [address] Monocytes/100 WBC (Bld) 4.6 % Normal [facility] Comment on above: Performed By: #### C BCA, CMP, , 2776-03 ####[facility] ([id number])5[address] [place] [address] Neutrophils/100 WBC (Bld) 83.2 % Normal [facility] Comment on above: Performed By: #### C BCA, CMP, , 2776-03 ####[facility] ([id number])5[address] [place] [address] Platelet mean volume (Bld) [Entitic vol] 7.6 fL Normal 7-12 [facility] Comment on above: Performed By: #### C BCA, CMP, , 2776-03 ####[facility] ([id number])5[address] [place] [address] Platelets (Bld) [#/Vol] 153 10*3/uL Normal 150-450 [facility] Comment on above: Performed By: #### C BCA, CMP, , 2776-03 ####[facility] ([id number])5[address] [place] [address] RBC COUNT 2.48 X10E12/L Low 3.80-5.20 [facility] Comment on above: Performed By: #### C BCA, CMP, , 2776-03 ####[facility] ([id number])[address] [place] [address] WBC (Bld) [#/Vol] 4.3 10*3/uL Normal 4.0-11.0 [facility] Comment on above: Performed By: #### C LUCIA, CMP, 08369-2, 2777-1 ####[facility] ([id number])5[address] [place] [address] CBC auto differentialon Basophils (Bld) [#/Vol] 0.0 10*3/uL [facility] Basophils/100 WBC (Bld) 0.2 % [facility] Eosinophils (Bld) [#/Vol] 0.0 10*3/uL [facility] Eosinophils/100 WBC (Bld) 0.0 % [facility] Erythrocyte distribution width (RBC) [Ratio] 14.6 % 11.5 - 15.0 % [facility] Hematocrit (Bld) [Volume fraction] 22.0 % Low 35 - 47 % [facility] Hemoglobin (Bld) [Mass/Vol] 7.4 g/dL Low 11.7 - 15.5 g/dL [facility] Interpretation and review of laboratory results Abnormal [facility] Lymphocytes (Bld) [#/Vol] 0.5 10*3/uL Low [facility] Lymphocytes/100 WBC (Bld) 12.0 % [facility] MCH (RBC) [Entitic mass] 29.9 pg 27 - 34 pg [facility] MCHC (RBC) [Mass/Vol] 33.8 g/dL 32 - 36 g/dL P [facility] MCV (RBC) [Entitic vol] 89 fL 80 - 100 fL [facility] Monocytes (Bld) [#/Vol] 0.2 10*3/uL [facility] Monocytes/100 WBC (Bld) 4.6 % [facility] Neutrophils (Bld) [#/Vol] 3.6 10*3/uL [facility] Neutrophils/100 WBC (Bld) 83.2 % [facility] Platelet mean volume (Bld) [Entitic vol] 7.6 fL 7 - 12 fL [facility] Platelets (Bld) [#/Vol] 153 10*3/uL [facility] RBC (Bld) [#/Vol] 2.48 10*6/uL Low [facility] WBC corrected for nucl RBC Auto (Bld) [#/Vol] 4.3 [facility] COMPREHENSIVE METABOLIC PANE [place] 12-09-2023 Albumin [Mass/Vol] 3.2 g/dL Normal 3.2-5.3 [facility] Comment on above: Performed By: #### C BCA, CMP, , 2776-03 ####[facility] ([id number])[address] [place] [address] ALP [Catalytic activity/Vol] 66 U/L Normal 39-130 [facility] Comment on above: Performed By: #### C BCA, CMP, , 2776-03 ####[facility] ([id number])[address] [place] [address] ALT [Catalytic activity/Vol] 30 U/L Normal 0-31 [facility] Comment on above: Performed By: #### C BCA, CMP, , 2776-03 ####[facility] ([id number])[address] [place] [address] Anion gap [Moles/Vol] 7 mmol/L Normal 5-15 [facility] Comment on above: Performed By: #### C BCA, CMP, , 2776-03 ####[facility] ([id number])[address] [place] [address] AST [Catalytic activity/Vol] 39 U/L Normal 0-41 [facility] Comment on above: Performed By: #### C BCA, CMP, , 2776-03 ####[facility] ([id number])[address] [place] [address] Bilirubin [Mass/Vol] 0.6 mg/dL Normal 0.3-1.2 [facility] Comment on above: Performed By: #### C BCA, CMP, , 2776-03 ####[facility] ([id number])[address] [place] [address] Calcium [Mass/Vol] 8.7 mg/dL Normal 8.5-10.5 [facility] Comment on above: Performed By: #### C BCA, CMP, , 2776-03 ####[facility] ([id number])[address] [place] [address] Chloride [Moles/Vol] 106 mmol/L Normal 98-109 [facility] Comment on above: Performed By: #### C BCA, CMP, , 2776-03 ####[facility] ([id number])5[address] [facility] [place] [address] CO2 [Moles/Vol] 26 mmol/L Normal 22-32 [facility] Comment on above: Performed By: #### C BCA, CMP, , 2776-03 ####[facility] ([id number])5200 [facility] [address] Creatinine [Mass/Vol] 1.50 mg/dL High 0.40-1.00 [facility] Comment on above: Result Comment: METH OD TRACEABLE TO IDMS STANDARD Performed By: #### C BCA, CMP, , 2776-03 ####[facility] ([id number])5[address] [facility] [place] [address] GFR/1.73 sq M.predicted among non-blacks MDRD (S/P/Bld) [Vol rate/Area] 41 mL/min/{1.73_m2} Low >59 [facility] Comment on above: Result Comment: Repo rted eGFR is based on theCKD-EPI 2020 equation that doesnot use a race coefficient. Performed By: #### C BCA, CMP, , 2776-03 ####[facility] ([id number])[address] [place] [address] Glucose [Mass/Vol] 160 mg/dL High 65-99 [facility] Comment on above: Performed By: #### C BCA, CMP, , 2776-03 ####[facility] ([id number])[address] [place] [address] Potassium [Moles/Vol] 3.8 mmol/L Normal 3.5-5.0 [facility] Comment on above: Performed By: #### C BCA, CMP, , 2776-03 ####[facility] ([id number])[address] [place] [address] Protein [Mass/Vol] 5.9 g/dL Low 6.0-8.0 [facility] Comment on above: Performed By: #### C BCA, CMP, , 2776-03 ####[facility] ([id number])[address] [facility] [place] [address] Sodium [Moles/Vol] 139 mmol/L Normal 134-146 [facility] Comment on above: Performed By: #### C BCA, CMP, , 2776-03 ####[facility] ([id number])[address] [facility] [place] [address] Urea nitrogen [Mass/Vol] 23 mg/dL Normal 5-23 [facility] Comment on above: Performed By: #### C BCA, CMP, , 2776-03 ####[facility] ([id number])[address] [facility] [place] [address] Comprehensive metabolic pane rome 12-09-2023 Albumin [Mass/Vol] 3.2 g/dL 3.2 - 5.3 g/dL [facility] ALP [Catalytic activity/Vol] 66 U/L 39 - 130 U/L [facility] ALT No additional P-5'-P [Catalytic activity/Vol] 30 U/L 0 - 31 U/L [facility] Anion gap [Moles/Vol] 7 mmol/L 5 - 15 mmol/L [facility] AST [Catalytic activity/Vol] 39 U/L 0 - 41 U/L [facility] Bilirubin [Mass/Vol] 0.6 mg/dL 0.3 - 1 .2 mg/dL [facility] Calcium [Mass/Vol] 8.7 mg/dL 8.5 - 10. 5 mg/dL [facility] Chloride [Moles/Vol] 106 mmol/L 98 - 10 9 mmol/L [facility] CO2 [Moles/Vol] 26 mmol/L 22 - 32 mmol/L [facility] Creatinine [Mass/Vol] 1.50 mg/dL High 0.40 - 1.00 mg/dL [facility] Comment on above: METHOD TRACEABLE TO [facility] STANDARD eGFR (CKD-EPI)non-race dependent 41 Low - PINF [facility] Comment on above: Reported eGFR is based on the CKD-EPI 2020 equation that does not use a race coefficient. Glucose [Mass/Vol] 160 mg/dL High 65 - 99 mg/dL [facility] Interpretation and review of laboratory results Abnormal [facility] Potassium [Moles/Vol] 3.8 mmol/L 3.5 - 5.0 mmol/L [facility] Protein [Mass/Vol] 5.9 g/dL Low 6.0 - 8.0 g/dL [facility] Sodium [Moles/Vol] 139 mmol/L 134 - 146 mmol/L [facility] Urea nitrogen [Mass/Vol] 23 mg/dL 5 - 23 mg/dL [facility] MAGNESIUMon 12-09-2023 Magnesium [Mass/Vol] 1.8 mg/dL Normal 1.8-2.6 [facility] Comment on above: Performed By: #### C BCA, CMP, 01481-8, 2777-1 ####[facility] ([id number])[address] [place] [address] Magnesiumon 12-09-2023 Magnesium [Mass/Vol] 1.8 mg/dL 1.8 - 2 .6 mg/dL [facility] No Panel Informationon 12-08 [facility] PHOSPHORUSon 12-09-2023 Phosphate [Mass/Vol] 3.7 mg/dL Normal 2.4-4.9 [facility] Comment on above: Performed By: #### C BCA, CMP, , 2776-03 ####[facility] ([id number])5[address] [place] [address] Phosphoruson 12-09-2023 Phosphate [Mass/Vol] 3.7 mg/dL 2.4 - 4 .9 mg/dL [facility] Bacteria identified Aer cx N om (Bld)on 12-08-2023 Service comment (Unsp spec) [Interp] SUBOPTIMAL VOLUME OF BLOOD COLLECTED, RESULTS MAY BE AFFECTED. [facility] Service comment (Unsp spec) [Interp] NO GROWTH 5 DAYS [facility] Service comment (Unsp spec) [Interp] SUBOPTIMAL VOLUME OF BLOOD COLLECTED, RESULTS MAY BE AFFECTED. [facility] Service comment (Unsp spec) [Interp] NO GROWTH 5 DAYS [facility] CBC AND AUTO DIFFon 12-08-19 ABSOLUTE BASOPHIL 0.0 X10E9/L Normal 0.0-0.2 [facility] Comment on above: Performed By: #### C , , 2776-03, CBCA ####[facility] ([id number])[address] [place] [address] Basophils/100 WBC (Bld) 1.0 % Normal [facility] Comment on above: Performed By: #### C , , 2776-03, CBCA ####[facility] ([id number])5[address] [place] [address] Eosinophils (Bld) [#/Vol] 0.2 10*3/uL Normal 0.0-0.4 [facility] Comment on above: Performed By: #### C MP, , 2776-03, CBCA ####[facility] ([id number])[address] [place] [address] Eosinophils/100 WBC (Bld) 7.0 % Normal [facility] Comment on above: Performed By: #### C MP, , 2776-03, CBCA ####[facility] ([id number])[address] [place] [address] Erythrocyte distribution width (RBC) [Ratio] 14.4 % Normal 11.5-15.0 [facility] Comment on above: Performed By: #### C ADARSH, , 2776-03, CBCA ####[facility] ([id number])5200 [facility] [place] [address] Hematocrit (Bld) [Volume fraction] 23.1 % Low 35-47 [facility] Comment on above: Performed By: #### C ADARSH, , 2776-03, CBCA ####[facility] ([id number])5200 [facility] [place] [address] Hemoglobin (Bld) [Mass/Vol] 8.1 g/dL Low 11.7-15.5 [facility] Comment on above: Performed By: #### C ADARSH, , 2776-03, CBCA ####[facility] ([id number])5[address] [facility] [place] [address] Lymphocytes (Bld) [#/Vol] 0.4 10*3/uL Low 1.0-3.5 [facility] Comment on above: Performed By: #### C ADARSH, , 2776-03, CBCA ####[facility] ([id number])5200 [facility] [place] [address] Lymphocytes/100 WBC (Bld) 14.0 % Normal [facility] Comment on above: Performed By: #### C ADARSH, , 2776-03, CBCA ####[facility] ([id number])5200 [facility] [address] MCH (RBC) [Entitic mass] 31.1 pg Normal 27-34 [facility] Comment on above: Performed By: #### C ADARSH, , 2776-03, CBCA ####[facility] ([id number])5[address] [facility] [place] [address] MCHC (RBC) [Mass/Vol] 35.1 g/dL Normal 32-36 [facility] Comment on above: Performed By: #### C ADARSH, , 2776-03, CBCA ####[facility] ([id number])5[address] [place] [address] MCV (RBC) [Entitic vol] 89 fL Normal 80-100 [facility] Comment on above: Performed By: #### C ADARSH, , 2776-03, CBCA ####[facility] ([id number])5200 [facility] [address] Monocytes (Bld) [#/Vol] 0.3 10*3/uL Normal 0-0.9 [facility] Comment on above: Performed By: #### C ADARSH, , 2776-03, CBCA ####[facility] ([id number])5200 [facility] [place] [address] Monocytes/100 WBC (Bld) 9.0 % Normal [facility] Comment on above: Performed By: #### C ADARSH, , 2776-03, CBCA ####[facility] ([id number])5200 [facility] [address] Neutrophils (Bld) [#/Vol] 2.0 10*3/uL Normal 1.5-6.6 [facility] Comment on above: Performed By: #### C ADARSH, , 2776-03, CBCA ####[facility] ([id number])5200 [facility] [address] Platelet mean volume (Bld) [Entitic vol] 7.5 fL Normal 7-12 [facility] Comment on above: Performed By: #### C ADARSH, , 2776-03, CBCA ####[facility] ([id number])5200 [facility] [place] [address] Platelets (Bld) [#/Vol] 147 10*3/uL Low 150-450 [facility] Comment on above: Performed By: #### C ADARSH, , 2776-03, CBCA ####[facility] ([id number])5200 [facility] [address] RBC COUNT 2.61 X10E12/L Low 3.80-5.20 [facility] Comment on above: Performed By: #### C ADARSH, , 2776-03, CBCA ####[facility] ([id number])5200 [facility] [address] RBC morphology finding Nom (Bld) REVIEWED Normal [facility] Comment on above: Performed By: #### C ADARSH, , 2776-03, CBCA ####[facility] ([id number])5200 [facility] [address] SEG NEUTROPHIL 69.0 % Normal [facility] Comment on above: Performed By: #### C ADARSH, , 2776-03, CBCA ####[facility] ([id number])5200 [facility] [place] [address] WBC (Bld) [#/Vol] 2.9 10*3/uL Low 4.0-11.0 [facility] Comment on above: Performed By: #### C ADARSH, , 2776-03, CBCA ####[facility] ([id number])5200 [facility] [place] [address] CBC auto differentialon 10-0 -2023 Basophils (Bld) [#/Vol] 0.0 10*3/uL [facility] Basophils/100 WBC (Bld) 1.0 % [facility] Eosinophils (Bld) [#/Vol] 0.2 10*3/uL [facility] Eosinophils/100 WBC (Bld) 7.0 % [facility] Erythrocyte distribution width (RBC) [Ratio] 14.4 % 11.5 - 15.0 % [facility] Hematocrit (Bld) [Volume fraction] 23.1 % Low 35 - 47 % [facility] Hemoglobin (Bld) [Mass/Vol] 8.1 g/dL Low 11.7 - 15.5 g/dL [facility] Interpretation and review of laboratory results Abnormal [facility] Lymphocytes (Bld) [#/Vol] 0.4 10*3/uL Low [facility] Lymphocytes/100 WBC (Bld) 14.0 % [facility] MCH (RBC) [Entitic mass] 31.1 pg 27 - 34 pg [facility] MCHC (RBC) [Mass/Vol] 35.1 g/dL 32 - 36 g/dL P [facility] MCV (RBC) [Entitic vol] 89 fL 80 - 100 fL [facility] Monocytes (Bld) [#/Vol] 0.3 10*3/uL [facility] Monocytes/100 WBC (Bld) 9.0 % [facility] Neutrophils (Bld) [#/Vol] 2.0 10*3/uL [facility] Platelet mean volume (Bld) [Entitic vol] 7.5 fL 7 - 12 fL [facility] Platelets (Bld) [#/Vol] 147 10*3/uL Low [facility] Polymorphonuclear cells/100 WBC (Bld) REVIEWED [facility] RBC (Bld) [#/Vol] 2.61 10*6/uL Low [facility] Segmented neutrophils/100 WBC (Bld) 69.0 % [facility] WBC corrected for nucl RBC Auto (Bld) [#/Vol] 2.9 Low [facility] COMPREHENSIVE METABOLIC PANE [place] 12-08-2023 Albumin [Mass/Vol] 3.2 g/dL Normal 3.2-5.3 [facility] Comment on above: Performed By: #### C ADARSH, 58293-0, 2777-1, CBCA ####[facility] ([id number])5[address] [place] [address] ALP [Catalytic activity/Vol] 64 U/L Normal 39-130 [facility] Comment on above: Performed By: #### C ADARSH, 34131-7, 2777-1, CBCA ####[facility] ([id number])[address] [place] [address] ALT [Catalytic activity/Vol] 18 U/L Normal 0-31 [facility] Comment on above: Performed By: #### C ADARSH, , 2776-03, CBCA ####[facility] ([id number])[address] [place] [address] Anion gap [Moles/Vol] 8 mmol/L Normal 5-15 [facility] Comment on above: Performed By: #### C ADARSH, , 2776-03, CBCA ####[facility] ([id number])[address] [place] [address] AST [Catalytic activity/Vol] 28 U/L Normal 0-41 [facility] Comment on above: Performed By: #### C ADARSH, , 2776-03, CBCA ####[facility] ([id number])[address] [place] [address] Bilirubin [Mass/Vol] 0.6 mg/dL Normal 0.3-1.2 [facility] Comment on above: Performed By: #### C ADARSH, , 2776-03, CBCA ####[facility] ([id number])[address] [place] [address] Calcium [Mass/Vol] 8.7 mg/dL Normal 8.5-10.5 [facility] Comment on above: Performed By: #### C ADARSH, , 2776-03, CBCA ####[facility] ([id number])[address] [place] [address] Chloride [Moles/Vol] 101 mmol/L Normal 98-109 [facility] Comment on above: Performed By: #### C ADARSH, , 2776-03, CBCA ####[facility] ([id number])[address] [place] [address] CO2 [Moles/Vol] 27 mmol/L Normal 22-32 [facility] Comment on above: Performed By: #### C ADARSH, , 2776-03, CBCA ####[facility] ([id number])[address] [place] [address] Creatinine [Mass/Vol] 1.89 mg/dL High 0.40-1.00 [facility] Comment on above: Result Comment: METH OD TRACEABLE TO IDMS STANDARD Performed By: #### C ADARSH, , 2776-03, CBCA ####[facility] ([id number])5[address] [facility] [place] [address] GFR/1.73 sq M.predicted among non-blacks MDRD (S/P/Bld) [Vol rate/Area] 31 mL/min/{1.73_m2} Low >59 [facility] Comment on above: Result Comment: Repo rted eGFR is based on theCKD-EPI 2020 equation that doesnot use a race coefficient. Performed By: #### C ADARSH, , 2776-03, CBCA ####[facility] ([id number])5[address] [facility] [place] [address] Glucose [Mass/Vol] 99 mg/dL Normal 65-99 [facility] Comment on above: Performed By: #### C ADARSH, , 2776-03, CBCA ####[facility] ([id number])5[address] [facility] [place] [address] Potassium [Moles/Vol] 3.2 mmol/L Low 3.5-5.0 [facility] Comment on above: Performed By: #### C ADARSH, , 2776-03, CBCA ####[facility] ([id number])5[address] [facility] [place] [address] Protein [Mass/Vol] 5.6 g/dL Low 6.0-8.0 [facility] Comment on above: Performed By: #### C ADARSH, , 2776-03, CBCA ####[facility] ([id number])5[address] [place] [address] Sodium [Moles/Vol] 136 mmol/L Normal 134-146 [facility] Comment on above: Performed By: #### C , 21376-0, 2777-1, CBCA ####[facility] ([id number])5[address] [facility] [place] [address] Urea nitrogen [Mass/Vol] 24 mg/dL High 5-23 [facility] Comment on above: Performed By: #### C , 44725-0, 2776-1, CBCA ####[facility] ([id number])[address] [facility] [place] [address] Comprehensive metabolic pane [place] 12-08-2023 Albumin [Mass/Vol] 3.2 g/dL 3.2 - 5.3 g/dL [facility] ALP [Catalytic activity/Vol] 64 U/L 39 - 130 U/L [facility] ALT No additional P-5'-P [Catalytic activity/Vol] 18 U/L 0 - 31 U/L [facility] Anion gap [Moles/Vol] 8 mmol/L 5 - 15 mmol/L [facility] AST [Catalytic activity/Vol] 28 U/L 0 - 41 U/L [facility] Bilirubin [Mass/Vol] 0.6 mg/dL 0.3 - 1 .2 mg/dL [facility] Calcium [Mass/Vol] 8.7 mg/dL 8.5 - 10. 5 mg/dL [facility] Chloride [Moles/Vol] 101 mmol/L 98 - 10 9 mmol/L [facility] CO2 [Moles/Vol] 27 mmol/L 22 - 32 mmol/L [facility] Creatinine [Mass/Vol] 1.89 mg/dL High 0.40 - 1.00 mg/dL [facility] Comment on above: METHOD TRACEABLE TO [facility] STANDARD eGFR (CKD-EPI)non-race dependent 31 Low - PINF [facility] Comment on above: Reported eGFR is based on the CKD-EPI 2020 equation that does not use a race coefficient. Glucose [Mass/Vol] 99 mg/dL 65 - 99 mg/dL [facility] Potassium [Moles/Vol] 3.2 mmol/L Low 3.5 - 5.0 mmol/L [facility] Protein [Mass/Vol] 5.6 g/dL Low 6.0 - 8.0 g/dL [facility] Sodium [Moles/Vol] 136 mmol/L 134 - 146 mmol/L [facility] Urea nitrogen [Mass/Vol] 24 mg/dL High 5 - 23 mg/dL [facility] MAGNESIUMon 12-08-2023 Magnesium [Mass/Vol] 2.5 mg/dL Normal 1.8-2.6 [facility] Comment on above: Performed By: #### 2 823-3, ####[facility] ([id number])5200 [facility] [place] [address] Magnesium [Mass/Vol] 1.5 mg/dL Low 1.8-2.6 [facility] Comment on above: Performed By: #### C ADARSH, , 2776-03, CBCA ####[facility] ([id number])5200 [facility] [place] [address] Magnesiumon 12-08-2023 Magnesium [Mass/Vol] 2.5 mg/dL 1.8 - 2 .6 mg/dL [facility] Magnesium [Mass/Vol] 1.5 mg/dL Low 1.8 - 2 .6 mg/dL [facility] No Panel Informationon 12-07 [facility] Interpretation and review of laboratory results Abnormal [facility] PHOSPHORUSon 12-08-2023 Phosphate [Mass/Vol] 4.1 mg/dL Normal 2.4-4.9 [facility] Comment on above: Performed By: #### C ADARSH, , 2776-03, CBCA ####[facility] ([id number])[address] [place] [address] POTASSIUMon 12-08-2023 Potassium [Moles/Vol] 3.8 mmol/L Normal 3.5-5.0 [facility] Comment on above: Performed By: #### 2 823-3 ####[facility] ([id number])5[address] [place] [address] Potassium [Moles/Vol] 3.3 mmol/L Low 3.5-5.0 [facility] Comment on above: Performed By: #### 2 823-3, ####[facility] ([id number])5[address] [place] [address] Phosphoruson 12-08-2023 Phosphate [Mass/Vol] 4.1 mg/dL 2.4 - 4 .9 mg/dL [facility] Potassiumon 12-08-2023 Potassium [Moles/Vol] 3.8 mmol/L 3.5 - 5.0 mmol/L [facility] Potassium [Moles/Vol] 3.3 mmol/L Low 3.5 - 5.0 mmol/L [facility] Potassium [Moles/Vol]on [facility] Interpretation and review of laboratory results Abnormal [facility] CBC AND AUTO DIFFon 12-07-19 24 ABSOLUTE BASOPHIL 0.0 X10E9/L Normal 0.0-0.2 [facility] Comment on above: Performed By: #### C LUCIA [facility], 2776-03 ####[facility] ([id number])5200 [facility] [place] [address] ABSOLUTE NEUTROPHIL 1.6 X10E9/L Normal 1.5-6.6 [facility] Comment on above: Performed By: #### C LUCIA [facility], , 2776-03 ####[facility] ([id number])5200 [facility] [place] [address] Basophils/100 WBC (Bld) 0.7 % Normal [facility] Comment on above: Performed By: #### C LUCIA CMP, 2776-03 ####[facility] ([id number])5[address] [place] [address] Eosinophils (Bld) [#/Vol] 0.2 10*3/uL Normal 0.0-0.4 [facility] Comment on above: Performed By: #### C BCA, CMP, 2776-03 ####[facility] ([id number])5200 [facility] [address] Eosinophils/100 WBC (Bld) 7.0 % Normal [facility] Comment on above: Performed By: #### C BCA, CMP, , 2776-03 ####[facility] ([id number])5200 [facility] [place] [address] Erythrocyte distribution width (RBC) [Ratio] 14.2 % Normal 11.5-15.0 [facility] Comment on above: Performed By: #### C BCA, CMP, , 2776-03 ####[facility] ([id number])5200 [facility] [place] [address] Hematocrit (Bld) [Volume fraction] 22.3 % Low 35-47 [facility] Comment on above: Performed By: #### C BCA, CMP, 2776-03 ####[facility] ([id number])5200 [facility] [place] [address] Hemoglobin (Bld) [Mass/Vol] 7.8 g/dL Low 11.7-15.5 [facility] Comment on above: Performed By: #### C BCA, CMP, 2776-03 ####[facility] ([id number])5200 [facility] [place] [address] Lymphocytes (Bld) [#/Vol] 0.5 10*3/uL Low 1.0-3.5 [facility] Comment on above: Performed By: #### C BCA, CMP, 2776-03 ####[facility] ([id number])5200 [facility] [address] Lymphocytes/100 WBC (Bld) 19.6 % Normal [facility] Comment on above: Performed By: #### C BCA, CMP, 2776-03 ####[facility] ([id number])[address] [place] [address] MCH (RBC) [Entitic mass] 30.9 pg Normal 27-34 [facility] Comment on above: Performed By: #### C BCA, CMP, , 2776-03 ####[facility] ([id number])5[address] [place] [address] MCHC (RBC) [Mass/Vol] 34.9 g/dL Normal 32-36 [facility] Comment on above: Performed By: #### C LUCIA, CMP, , 2776-03 ####[facility] ([id number])5200 [facility] [place] [address] MCV (RBC) [Entitic vol] 88 fL Normal 80-100 [facility] Comment on above: Performed By: #### Jamal MYERS, CMP, , 2776-03 ####[facility] ([id number])5200 [facility] [address] Monocytes (Bld) [#/Vol] 0.3 10*3/uL Normal 0-0.9 [facility] Comment on above: Performed By: #### C LUCIA, CMP, , 2776-03 ####[facility] ([id number])5200 [facility] [address] Monocytes/100 WBC (Bld) 12.5 % Normal [facility] Comment on above: Performed By: #### C BCA, CMP, , 2776-03 ####[facility] ([id number])5200 [facility] [address] Neutrophils/100 WBC (Bld) 60.2 % Normal [facility] Comment on above: Performed By: #### Jamal BCA, CMP, , 2776-03 ####[facility] ([id number])5[address] [place] [address] Platelet mean volume (Bld) [Entitic vol] 6.9 fL Low 7-12 [facility] Comment on above: Performed By: #### C LUCIA, CMP, , 2776-03 ####[facility] ([id number])5200 [facility] [place] [address] Platelets (Bld) [#/Vol] 150 10*3/uL Normal 150-450 [facility] Comment on above: Performed By: #### Jamal MYERS, CMP, , 2776-03 ####[facility] ([id number])5200 [facility] [place] [address] RBC COUNT 2.52 X10E12/L Low 3.80-5.20 [facility] Comment on above: Performed By: #### Jamal MYERS, CMP, , 2776-03 ####[facility] ([id number])[address] [place] [address] WBC (Bld) [#/Vol] 2.7 10*3/uL Low 4.0-11.0 [facility] Comment on above: Performed By: #### Jamal MYERS, CMP, , 2776-03 ####[facility] ([id number])5200 [facility] [address] CBC auto differentialon 10-0 Basophils (Bld) [#/Vol] 0.0 10*3/uL [facility] Basophils/100 WBC (Bld) 0.7 % [facility] Eosinophils (Bld) [#/Vol] 0.2 10*3/uL [facility] Eosinophils/100 WBC (Bld) 7.0 % [facility] Erythrocyte distribution width (RBC) [Ratio] 14.2 % 11.5 - 15.0 % [facility] Hematocrit (Bld) [Volume fraction] 22.3 % Low 35 - 47 % [facility] Hemoglobin (Bld) [Mass/Vol] 7.8 g/dL Low 11.7 - 15.5 g/dL [facility] Interpretation and review of laboratory results Abnormal [facility] Lymphocytes (Bld) [#/Vol] 0.5 10*3/uL Low [facility] Lymphocytes/100 WBC (Bld) 19.6 % [facility] MCH (RBC) [Entitic mass] 30.9 pg 27 - 34 pg [facility] MCHC (RBC) [Mass/Vol] 34.9 g/dL 32 - 36 g/dL P [facility] MCV (RBC) [Entitic vol] 88 fL 80 - 100 fL [facility] Monocytes (Bld) [#/Vol] 0.3 10*3/uL [facility] Monocytes/100 WBC (Bld) 12.5 % [facility] Neutrophils (Bld) [#/Vol] 1.6 10*3/uL [facility] Neutrophils/100 WBC (Bld) 60.2 % [facility] Platelet mean volume (Bld) [Entitic vol] 6.9 fL Low 7 - 12 fL [facility] Platelets (Bld) [#/Vol] 150 10*3/uL [facility] RBC (Bld) [#/Vol] 2.52 10*6/uL Low [facility] WBC corrected for nucl RBC Auto (Bld) [#/Vol] 2.7 Low [facility] COMPREHENSIVE METABOLIC PANE [place] 12-07-2023 Albumin [Mass/Vol] 3.1 g/dL Low 3.2-5.3 [facility] Comment on above: Performed By: #### C BCA, CMP, , 2776-03 ####[facility] ([id number])5[address] [place] [address] ALP [Catalytic activity/Vol] 56 U/L Normal 39-130 [facility] Comment on above: Performed By: #### C BCA, CMP, , 2776-03 ####[facility] ([id number])5[address] [place] [address] ALT [Catalytic activity/Vol] 13 U/L Normal 0-31 [facility] Comment on above: Performed By: #### C BCA, CMP, , 2776-03 ####[facility] ([id number])[address] [place] [address] Anion gap [Moles/Vol] 8 mmol/L Normal 5-15 [facility] Comment on above: Performed By: #### C BCA, CMP, , 2776-03 ####[facility] ([id number])[address] [place] [address] AST [Catalytic activity/Vol] 22 U/L Normal 0-41 [facility] Comment on above: Performed By: #### C BCA, CMP, , 2776-03 ####[facility] ([id number])[address] [place] [address] Bilirubin [Mass/Vol] 0.5 mg/dL Normal 0.3-1.2 [facility] Comment on above: Performed By: #### C BCA, CMP, , 2776-03 ####[facility] ([id number])[address] [place] [address] Calcium [Mass/Vol] 8.8 mg/dL Normal 8.5-10.5 [facility] Comment on above: Performed By: #### C BCA, CMP, , 2776-03 ####[facility] ([id number])[address] [place] [address] Chloride [Moles/Vol] 102 mmol/L Normal 98-109 [facility] Comment on above: Performed By: #### C BCA, CMP, , 2776-03 ####[facility] ([id number])[address] [place] [address] CO2 [Moles/Vol] 28 mmol/L Normal 22-32 [facility] Comment on above: Performed By: #### C BCA, CMP, 2776-03 ####[facility] ([id number])[address] [place] [address] Creatinine [Mass/Vol] 2.07 mg/dL High 0.40-1.00 [facility] Comment on above: Result Comment: METH OD TRACEABLE TO IDMS STANDARD Performed By: #### C BCA, CMP, , 2776-03 ####[facility] ([id number])[address] [place] [address] GFR/1.73 sq M.predicted among non-blacks MDRD (S/P/Bld) [Vol rate/Area] 28 mL/min/{1.73_m2} Low >59 [facility] Comment on above: Result Comment: Repo rted eGFR is based on theCKD-EPI 2020 equation that doesnot use a race coefficient. Performed By: #### C LUCIA, CMP, , 2776-03 ####[facility] ([id number])[address] [place] [address] Glucose [Mass/Vol] 99 mg/dL Normal 65-99 [facility] Comment on above: Performed By: #### C BCA, CMP, , 2776-03 ####[facility] ([id number])[address] [place] [address] Potassium [Moles/Vol] 3.3 mmol/L Low 3.5-5.0 [facility] Comment on above: Performed By: #### C BCA, CMP, 2776-03 ####[facility] ([id number])[address] [place] [address] Protein [Mass/Vol] 5.6 g/dL Low 6.0-8.0 [facility] Comment on above: Performed By: #### C BCA, CMP, , 2776-03 ####[facility] ([id number])[address] [place] [address] Sodium [Moles/Vol] 138 mmol/L Normal 134-146 [facility] Comment on above: Performed By: #### C BCA, CMP, , 2776-03 ####[facility] ([id number])5[address] [facility] [place] [address] Urea nitrogen [Mass/Vol] 27 mg/dL High 5-23 [facility] Comment on above: Performed By: #### C BCA, [facility], 37995-9, 2777-1 ####[facility] ([id number])[address] [facility] [facility] [address] Comprehensive metabolic pane rome 12-07-2023 Albumin [Mass/Vol] 3.1 g/dL Low 3.2 - 5.3 g/dL [facility] ALP [Catalytic activity/Vol] 56 U/L 39 - 130 U/L [facility] ALT No additional P-5'-P [Catalytic activity/Vol] 13 U/L 0 - 31 U/L [facility] Anion gap [Moles/Vol] 8 mmol/L 5 - 15 mmol/L [facility] AST [Catalytic activity/Vol] 22 U/L 0 - 41 U/L [facility] Bilirubin [Mass/Vol] 0.5 mg/dL 0.3 - 1 .2 mg/dL [facility] Calcium [Mass/Vol] 8.8 mg/dL 8.5 - 10. 5 mg/dL [facility] Chloride [Moles/Vol] 102 mmol/L 98 - 10 9 mmol/L [facility] CO2 [Moles/Vol] 28 mmol/L 22 - 32 mmol/L [facility] Creatinine [Mass/Vol] 2.07 mg/dL High 0.40 - 1.00 mg/dL [facility] Comment on above: METHOD TRACEABLE TO IDAR STANDARD eGFR (CKD-EPI)non-race dependent 28 Low - PINF [facility] Comment on above: Reported eGFR is based on the CKD-EPI 202 equation that does not use a race coefficient. Glucose [Mass/Vol] 99 mg/dL 65 - 99 mg/dL [facility] Potassium [Moles/Vol] 3.3 mmol/L Low 3.5 - 5.0 mmol/L [facility] Protein [Mass/Vol] 5.6 g/dL Low 6.0 - 8.0 g/dL [facility] Sodium [Moles/Vol] 138 mmol/L 134 - 146 mmol/L [facility] Urea nitrogen [Mass/Vol] 27 mg/dL High 5 - 23 mg/dL [facility] MAGNESIUMon 12-07-2023 Magnesium [Mass/Vol] 2.0 mg/dL Normal 1.8-2.6 [facility] Comment on above: Performed By: #### C LUCIA CMP, 2776-03 ####[facility] ([id number])[address] [place] [address] Magnesiumon 12-07-2023 Magnesium [Mass/Vol] 2.0 mg/dL 1.8 - 2 .6 mg/dL [facility] No Panel Informationon 12-06 Interpretation and review of laboratory results Abnormal [facility] PHOSPHORUSon 12-07-2023 Phosphate [Mass/Vol] 5.4 mg/dL High 2.4-4.9 [facility] Comment on above: Performed By: #### C LUCIA CMP, 2776-03 ####[facility] ([id number])[address] [place] [address] Phosphoruson 12-07-2023 Phosphate [Mass/Vol] 5.4 mg/dL High 2.4 - 4 .9 mg/dL [facility] CBC AND AUTO DIFFon 12-06-19 24 ABSOLUTE BASOPHIL 0.0 X10E9/L Normal 0.0-0.2 [facility] Comment on above: Performed By: #### C LUCIA, CMP, 2776-03 ####[facility] ([id number])[address] [place] [address] ABSOLUTE NEUTROPHIL 1.9 X10E9/L Normal 1.5-6.6 [facility] Comment on above: Performed By: #### C BCA CMP, 2776-03 ####[facility] ([id number])[address] [place] [address] Basophils/100 WBC (Bld) 0.5 % Normal [facility] Comment on above: Performed By: #### C BCA, CMP, 2776-03 ####[facility] ([id number])5[address] [facility] [place] [address] Eosinophils (Bld) [#/Vol] 0.2 10*3/uL Normal 0.0-0.4 [facility] Comment on above: Performed By: #### C BCA, CMP, , 2776-03 ####[facility] ([id number])[address] [facility] [place] [address] Eosinophils/100 WBC (Bld) 7.7 % Normal [facility] Comment on above: Performed By: #### C BCA, CMP, , 2776-03 ####[facility] ([id number])5[address] [facility] [place] [address] Erythrocyte distribution width (RBC) [Ratio] 14.1 % Normal 11.5-15.0 [facility] Comment on above: Performed By: #### C BCA, CMP, , 2776-03 ####[facility] ([id number])5[address] [facility] [place] [address] Hematocrit (Bld) [Volume fraction] 23.0 % Low 35-47 [facility] Comment on above: Performed By: #### C BCA, CMP, , 2776-03 ####[facility] ([id number])[address] [facility] [place] [address] Hemoglobin (Bld) [Mass/Vol] 7.8 g/dL Low 11.7-15.5 [facility] Comment on above: Performed By: #### C BCA, CMP, , 2776-03 ####[facility] ([id number])[address] [facility] [place] [address] Lymphocytes (Bld) [#/Vol] 0.4 10*3/uL Low 1.0-3.5 [facility] Comment on above: Performed By: #### C BCA, CMP, , 2776-03 ####[facility] ([id number])5[address] [place] [address] Lymphocytes/100 WBC (Bld) 13.8 % Normal [facility] Comment on above: Performed By: #### C BCA, CMP, , 2776-03 ####[facility] ([id number])[address] [place] [address] MCH (RBC) [Entitic mass] 30.3 pg Normal 27-34 [facility] Comment on above: Performed By: #### C BCA, CMP, , 2776-03 ####[facility] ([id number])5[address] [facility] [facility] [address] MCHC (RBC) [Mass/Vol] 34.0 g/dL Normal 32-36 [facility] Comment on above: Performed By: #### C BCA, CMP, , 2776-03 ####[facility] ([id number])5[address] [facility] [place] [address] MCV (RBC) [Entitic vol] 89 fL Normal 80-100 [facility] Comment on above: Performed By: #### C BCA, CMP, , 2776-03 ####[facility] ([id number])5[address] [facility] [place] [address] Monocytes (Bld) [#/Vol] 0.4 10*3/uL Normal 0-0.9 [facility] Comment on above: Performed By: #### C BCA, CMP, , 2776-03 ####[facility] ([id number])[address] [place] [address] Monocytes/100 WBC (Bld) 14.0 % Normal [facility] Comment on above: Performed By: #### C BCA, CMP, , 2776-03 ####[facility] ([id number])[address] [place] [address] Neutrophils/100 WBC (Bld) 64.0 % Normal [facility] Comment on above: Performed By: #### C BCA, CMP, , 2776-03 ####[facility] ([id number])[address] [facility] [place] [address] Platelet mean volume (Bld) [Entitic vol] 6.7 fL Low 7-12 [facility] Comment on above: Performed By: #### C BCA, CMP, , 2776-03 ####[facility] ([id number])[address] [facility] [place] [address] Platelets (Bld) [#/Vol] 172 10*3/uL Normal 150-450 [facility] Comment on above: Performed By: #### C LUCIA, [facility], , 2776-03 ####[facility] ([id number])[address] [facility] [place] [address] RBC COUNT 2.58 X10E12/L Low 3.80-5.20 [facility] Comment on above: Performed By: #### Jamal MYERS, [facility], , 2776-03 ####[facility] ([id number])[address] [place] [address] WBC (Bld) [#/Vol] 3.0 10*3/uL Low 4.0-11.0 [facility] Comment on above: Performed By: #### Jamal MYERS, CMP, , 2776-03 ####[facility] ([id number])[address] [facility] [place] [address] CBC auto differentialon 10-0 -2023 Basophils (Bld) [#/Vol] 0.0 10*3/uL [facility] Basophils/100 WBC (Bld) 0.5 % [facility] Eosinophils (Bld) [#/Vol] 0.2 10*3/uL [facility] Eosinophils/100 WBC (Bld) 7.7 % [facility] Erythrocyte distribution width (RBC) [Ratio] 14.1 % 11.5 - 15.0 % [facility] Hematocrit (Bld) [Volume fraction] 23.0 % Low 35 - 47 % [facility] Hemoglobin (Bld) [Mass/Vol] 7.8 g/dL Low 11.7 - 15.5 g/dL [facility] Interpretation and review of laboratory results Abnormal [facility] Lymphocytes (Bld) [#/Vol] 0.4 10*3/uL Low [facility] Lymphocytes/100 WBC (Bld) 13.8 % [facility] MCH (RBC) [Entitic mass] 30.3 pg 27 - 34 pg [facility] MCHC (RBC) [Mass/Vol] 34.0 g/dL 32 - 36 g/dL [facility] MCV (RBC) [Entitic vol] 89 fL 80 - 100 fL [facility] Monocytes (Bld) [#/Vol] 0.4 10*3/uL [facility] Monocytes/100 WBC (Bld) 14.0 % [facility] Neutrophils (Bld) [#/Vol] 1.9 10*3/uL [facility] Neutrophils/100 WBC (Bld) 64.0 % [facility] Platelet mean volume (Bld) [Entitic vol] 6.7 fL Low 7 - 12 fL [facility] Platelets (Bld) [#/Vol] 172 10*3/uL [facility] RBC (Bld) [#/Vol] 2.58 10*6/uL Low [facility] WBC corrected for nucl RBC Auto (Bld) [#/Vol] 3.0 Low [facility] COMPREHENSIVE METABOLIC PANE [place] 12-06-2023 Albumin [Mass/Vol] 3.3 g/dL Normal 3.2-5.3 [facility] Comment on above: Performed By: #### C BCA, CMP, 28061-2, 2776-1 ####[facility] ([id number])[address] [place] [address] ALP [Catalytic activity/Vol] 55 U/L Normal 39-130 [facility] Comment on above: Performed By: #### C BCA, CMP, 37251-6, 2777-1 ####[facility] ([id number])[address] [place] [address] ALT [Catalytic activity/Vol] 9 U/L Normal 0-31 [facility] Comment on above: Performed By: #### C BCA, CMP, , 2776-03 ####[facility] ([id number])[address] [place] [address] Anion gap [Moles/Vol] 9 mmol/L Normal 5-15 [facility] Comment on above: Performed By: #### C BCA, CMP, , 2776-03 ####[facility] ([id number])[address] [place] [address] AST [Catalytic activity/Vol] 16 U/L Normal 0-41 [facility] Comment on above: Performed By: #### C BCA, CMP, , 2776-03 ####[facility] ([id number])[address] [place] [address] Bilirubin [Mass/Vol] 0.5 mg/dL Normal 0.3-1.2 [facility] Comment on above: Performed By: #### C BCA, CMP, 2776-03 ####[facility] ([id number])[address] [place] [address] Calcium [Mass/Vol] 9.0 mg/dL Normal 8.5-10.5 [facility] Comment on above: Performed By: #### C BCA, CMP, 2776-03 ####[facility] ([id number])[address] [place] [address] Chloride [Moles/Vol] 102 mmol/L Normal 98-109 [facility] Comment on above: Performed By: #### C BCA, CMP, 2776-03 ####[facility] ([id number])[address] [place] [address] CO2 [Moles/Vol] 26 mmol/L Normal 22-32 [facility] Comment on above: Performed By: #### C BCA, CMP, 2776-03 ####[facility] ([id number])[address] [place] [address] Creatinine [Mass/Vol] 2.34 mg/dL High 0.40-1.00 [facility] Comment on above: Result Comment: METH OD TRACEABLE TO IDMS STANDARD Performed By: #### C HILLARY MYERS, 2776-03 ####[facility] ([id number])[address] [facility] [place] [address] GFR/1.73 sq M.predicted among non-blacks MDRD (S/P/Bld) [Vol rate/Area] 24 mL/min/{1.73_m2} Low >59 [facility] Comment on above: Result Comment: Repo rted eGFR is based on theCKD-EPI 2020 equation that doesnot use a race coefficient. Performed By: #### C HILLARY MYERS, 2776-03 ####[facility] ([id number])[address] [facility] [place] [address] Glucose [Mass/Vol] 100 mg/dL High 65-99 [facility] Comment on above: Performed By: #### C HILLARY MYERS, 2776-03 ####[facility] ([id number])[address] [facility] [place] [address] Potassium [Moles/Vol] 3.5 mmol/L Normal 3.5-5.0 [facility] Comment on above: Performed By: #### C HILLARY MYERS, 2776-03 ####[facility] ([id number])[address] [facility] [place] [address] Protein [Mass/Vol] 5.8 g/dL Low 6.0-8.0 [facility] Comment on above: Performed By: #### C LUCIA CMP, 2776-03 ####[facility] ([id number])[address] [facility] [place] [address] Sodium [Moles/Vol] 137 mmol/L Normal 134-146 [facility] Comment on above: Performed By: #### C BCA, CMP, 68991-0, 2777-1 ####[facility] ([id number])[address] [place] [address] Urea nitrogen [Mass/Vol] 21 mg/dL Normal 5-23 [facility] Comment on above: Performed By: #### C BCA, CMP, 41667-5, 2777-1 ####[facility] ([id number])[address] [place] [address] Comprehensive metabolic pane rome 12-06-2023 Albumin [Mass/Vol] 3.3 g/dL 3.2 - 5.3 g/dL [facility] ALP [Catalytic activity/Vol] 55 U/L 39 - 130 U/L [facility] ALT No additional P-5'-P [Catalytic activity/Vol] 9 U/L 0 - 31 U/L [facility] Anion gap [Moles/Vol] 9 mmol/L 5 - 15 mmol/L [facility] AST [Catalytic activity/Vol] 16 U/L 0 - 41 U/L [facility] Bilirubin [Mass/Vol] 0.5 mg/dL 0.3 - 1 .2 mg/dL [facility] Calcium [Mass/Vol] 9.0 mg/dL 8.5 - 10. 5 mg/dL [facility] Chloride [Moles/Vol] 102 mmol/L 98 - 10 9 mmol/L [facility] CO2 [Moles/Vol] 26 mmol/L 22 - 32 mmol/L [facility] Creatinine [Mass/Vol] 2.34 mg/dL High 0.40 - 1.00 mg/dL [facility] Comment on above: METHOD TRACEABLE TO IDAR STANDARD eGFR (CKD-EPI)non-race dependent 24 Low - PINF [facility] Comment on above: Reported eGFR is based on the CKD-EPI 2020 equation that does not use a race coefficient. Glucose [Mass/Vol] 100 mg/dL High 65 - 99 mg/dL [facility] Potassium [Moles/Vol] 3.5 mmol/L 3.5 - 5.0 mmol/L [facility] Protein [Mass/Vol] 5.8 g/dL Low 6.0 - 8.0 g/dL [facility] Sodium [Moles/Vol] 137 mmol/L 134 - 146 mmol/L [facility] Urea nitrogen [Mass/Vol] 21 mg/dL 5 - 23 mg/dL [facility] MAGNESIUMon 12-06-2023 Magnesium [Mass/Vol] 2.3 mg/dL Normal 1.8-2.6 [facility] Comment on above: Performed By: #### 1 9123-9 ####[facility] ([id number])[address] [place] [address] Magnesium [Mass/Vol] 1.5 mg/dL Low 1.8-2.6 [facility] Comment on above: Performed By: #### C HILLARY MYERS, 65850-0, 2777-1 ####[facility] ([id number])[address] [place] [address] Magnesiumon 12-06-2023 Magnesium [Mass/Vol] 2.3 mg/dL 1.8 - 2 .6 mg/dL [facility] Magnesium [Mass/Vol] 1.5 mg/dL Low 1.8 - 2 .6 mg/dL [facility] Magnesium [Mass/Vol]on 12-05 [facility] No Panel Informationon 12-05 Interpretation and review of laboratory results Abnormal [facility] PHOSPHORUSon 12-06-2023 Phosphate [Mass/Vol] 5.0 mg/dL High 2.4-4.9 [facility] Comment on above: Performed By: #### C LUCIA, CMP, 19556-1, 2777-1 ####[facility] ([id number])[address] [place] [address] Phosphoruson 12-06-2023 Phosphate [Mass/Vol] 5.0 mg/dL High 2.4 - 4 .9 mg/dL [facility] URINALYSISon 12-06-2023 Bilirubin Ql (U) Negative Normal NEG [facility] Comment on above: Performed By: #### U A ####[facility] ([id number])[address] [facility] [place] [address] BLOOD/HGB Negative Normal NEG [facility] Comment on above: Performed By: #### U A ####[facility] ([id number])[address] [facility] [place] [address] Color (U) YELLOW Normal YELLOW [facility] Comment on above: Performed By: #### U A ####[facility] ([id number])[address] [facility] [place] [address] Glucose Ql (U) Negative Normal NEG [facility] Comment on above: Performed By: #### U A ####[facility] ([id number])[address] [place] [address] Ketones Ql (U) Negative Normal NEG [facility] Comment on above: Performed By: #### U A ####[facility] ([id number])[address] [place] [address] Leukocyte esterase Test strip Ql (U) Trace Abnormal NEG [facility] Comment on above: Performed By: #### U A ####[facility] ([id number])[address] [place] [address] Nitrite Ql (U) Negative Normal NEG [facility] Comment on above: Performed By: #### U A ####[facility] ([id number])[address] [place] [address] pH (U) 6.5 [pH] Normal 5.0-8.5 [facility] Comment on above: Performed By: #### U A ####[facility] ([id number])[address] [place] [address] Protein Ql (U) Negative Normal NEG [facility] Comment on above: Performed By: #### U A ####[facility] ([id number])[address] [place] [address] R.B.CELLS 1 /hpf Normal 0-5 [facility] Comment on above: Performed By: #### U A ####[facility] ([id number])5[address] [facility] [place] [address] Specific gravity (U) [Rel density] 1.010 Normal 1.003-1.035 [facility] Comment on above: Performed By: #### U A ####[facility] ([id number])5[address] [facility] [place] [address] SQUAMOUS EPITHELIUM 1 /hpf Normal 0-5 [facility] Comment on above: Performed By: #### U A ####[facility] ([id number])[address] [place] [address] TRANSITIONAL EPITH 1 /hpf High 0 [facility] Comment on above: Performed By: #### U A ####[facility] ([id number])[address] [facility] [place] [address] TURBIDITY CLEAR Normal CLEAR [facility] Comment on above: Performed By: #### U A ####[facility] ([id number])[address] [place] [address] Urobilinogen Qn (U) 0.2 {Ansley'U}/dL Normal <1.1 [facility] Comment on above: Performed By: #### U A ####[facility] ([id number])[address] [place] [address] W.B.CELLS 3 /hpf Normal 0-5 [facility] Comment on above: Performed By: #### U A ####[facility] ([id number])5[address] [facility] [place] [address] Urinalysison 12-06-2023 Bilirubin Ql (U) Negative Negative^Ne g ative [facility] Color (U) YELLOW YELLOW^YELLO W [facility] Epithelial cells Auto (Urine sed) [#/Area] 1 [facility] Epithelial cells.non-squamous LM.LPF (Urine sed) [#/Area] 1 High 0 /hpf [facility] Glucose (U) [Mass/Vol] Negative Negative^Neg ative mg/dL [facility] Hemoglobin Auto test strip Ql (U) Negative Negative^Neg ative [facility] Interpretation and review of laboratory results Abnormal [facility] Ketones (U) [Mass/Vol] Negative Negative^Neg ative mg/dL [facility] Leukocyte esterase Auto test strip Ql (U) Trace Abnormal Negative^Neg ative [facility] Nitrite Auto test strip Ql (U) Negative Negative^Neg ative [facility] pH (U) 6.5 [pH] 5.0 - 8.5 [facility] Protein (U) [Mass/Vol] Negative Negative^Neg ative mg/dL [facility] RBC Auto (Urine sed) [#/Area] 1 [facility] Specific gravity Refractometry automated (U) [Rel density] 1.010 1.003 - 1.035 [facility] Turbidity Ql (U) CLEAR CLEAR^CLEAR [facility] Urobilinogen Qn (U) 0.2 NINF [facility] WBC Auto (Urine sed) [#/Area] 3 [facility] BLOOD CULTUREon 12-05-2023 Bacteria identified Aer cx Nom (Bld) CULTURE RESULTS NO GROWTH 5 DAYS Normal [facility] Bacteria identified Aer cx Nom (Bld) CULTURE RESULTS NO GROWTH 5 DAYS Normal [facility] CBC AND AUTO DIFFon 12-05-19 24 ABSOLUTE BASOPHIL 0.0 X10E9/L Normal 0.0-0.2 [facility] Comment on above: Performed By: #### C HILLARY MYERS, 2776-03 ####[facility] ([id number])[address] [place] [address] ABSOLUTE NEUTROPHIL 2.6 X10E9/L Normal 1.5-6.6 [facility] Comment on above: Performed By: #### C HILLARY MYERS, , 2776-03 ####[facility] ([id number])[address] [place] [address] Basophils/100 WBC (Bld) 0.7 % Normal [facility] Comment on above: Performed By: #### C HILLARY MYERS, , 2776-03 ####[facility] ([id number])[address] [facility] [place] [address] Eosinophils (Bld) [#/Vol] 0.3 10*3/uL Normal 0.0-0.4 [facility] Comment on above: Performed By: #### C BCA, CMP, , 2776-03 ####[facility] ([id number])[address] [place] [address] Eosinophils/100 WBC (Bld) 8.8 % Normal [facility] Comment on above: Performed By: #### C BCA, CMP, , 2776-03 ####[facility] ([id number])[address] [place] [address] Erythrocyte distribution width (RBC) [Ratio] 13.8 % Normal 11.5-15.0 [facility] Comment on above: Performed By: #### C BCA, CMP, , 2776-03 ####[facility] ([id number])[address] [place] [address] Hematocrit (Bld) [Volume fraction] 22.2 % Low 35-47 [facility] Comment on above: Performed By: #### C BCA, CMP, , 2776-03 ####[facility] ([id number])[address] [place] [address] Hemoglobin (Bld) [Mass/Vol] 7.6 g/dL Low 11.7-15.5 [facility] Comment on above: Performed By: #### C BCA, CMP, , 2776-03 ####[facility] ([id number])[address] [place] [address] Lymphocytes (Bld) [#/Vol] 0.5 10*3/uL Low 1.0-3.5 [facility] Comment on above: Performed By: #### C BCA, CMP, , 2776-03 ####[facility] ([id number])[address] [place] [address] Lymphocytes/100 WBC (Bld) 11.8 % Normal [facility] Comment on above: Performed By: #### C BCA, CMP, , 2776-03 ####[facility] ([id number])[address] [place] [address] MCH (RBC) [Entitic mass] 30.5 pg Normal 27-34 [facility] Comment on above: Performed By: #### C BCA, CMP, , 2776-03 ####[facility] ([id number])[address] [place] [address] MCHC (RBC) [Mass/Vol] 34.4 g/dL Normal 32-36 [facility] Comment on above: Performed By: #### C BCA, CMP, , 2776-03 ####[facility] ([id number])[address] [place] [address] MCV (RBC) [Entitic vol] 89 fL Normal 80-100 [facility] Comment on above: Performed By: #### C BCA, CMP, , 2776-03 ####[facility] ([id number])[address] [place] [address] Monocytes (Bld) [#/Vol] 0.5 10*3/uL Normal 0-0.9 [facility] Comment on above: Performed By: #### C BCA, CMP, , 2776-03 ####[facility] ([id number])[address] [place] [address] Monocytes/100 WBC (Bld) 11.8 % Normal [facility] Comment on above: Performed By: #### C BCA, CMP, , 2776-03 ####[facility] ([id number])[address] [place] [address] Neutrophils/100 WBC (Bld) 66.9 % Normal [facility] Comment on above: Performed By: #### C BCA, CMP, , 2776-03 ####[facility] ([id number])[address] [facility] [place] [address] Platelet mean volume (Bld) [Entitic vol] 6.4 fL Low 7-12 [facility] Comment on above: Performed By: #### Jamal BCA, CMP, , 2776-03 ####[facility] ([id number])[address] [place] [address] Platelets (Bld) [#/Vol] 195 10*3/uL Normal 150-450 [facility] Comment on above: Performed By: #### Jamal MYERS, CMP, , 2776-03 ####[facility] ([id number])[address] [place] [address] RBC COUNT 2.50 X10E12/L Low 3.80-5.20 [facility] Comment on above: Performed By: #### Jamal BCA, CMP, , 2776-03 ####[facility] ([id number])[address] [place] [address] WBC (Bld) [#/Vol] 3.9 10*3/uL Low 4.0-11.0 [facility] Comment on above: Performed By: #### Jamal MYERS, CMP, , 2776-03 ####[facility] ([id number])[address] [place] [address] CBC auto differentialon - Basophils (Bld) [#/Vol] 0.0 10*3/uL [facility] Basophils/100 WBC (Bld) 0.7 % [facility] Eosinophils (Bld) [#/Vol] 0.3 10*3/uL [facility] Eosinophils/100 WBC (Bld) 8.8 % [facility] Erythrocyte distribution width (RBC) [Ratio] 13.8 % 11.5 - 15.0 % [facility] Hematocrit (Bld) [Volume fraction] 22.2 % Low 35 - 47 % [facility] Hemoglobin (Bld) [Mass/Vol] 7.6 g/dL Low 11.7 - 15.5 g/dL [facility] Interpretation and review of laboratory results Abnormal [facility] Lymphocytes (Bld) [#/Vol] 0.5 10*3/uL Low [facility] Lymphocytes/100 WBC (Bld) 11.8 % [facility] MCH (RBC) [Entitic mass] 30.5 pg 27 - 34 pg [facility] MCHC (RBC) [Mass/Vol] 34.4 g/dL 32 - 36 g/dL [facility] MCV (RBC) [Entitic vol] 89 fL 80 - 100 fL [facility] Monocytes (Bld) [#/Vol] 0.5 10*3/uL [facility] Monocytes/100 WBC (Bld) 11.8 % [facility] Neutrophils (Bld) [#/Vol] 2.6 10*3/uL [facility] Neutrophils/100 WBC (Bld) 66.9 % [facility] Platelet mean volume (Bld) [Entitic vol] 6.4 fL Low 7 - 12 fL [facility] Platelets (Bld) [#/Vol] 195 10*3/uL [facility] RBC (Bld) [#/Vol] 2.50 10*6/uL Low [facility] WBC corrected for nucl RBC Auto (Bld) [#/Vol] 3.9 Low [facility] COMPREHENSIVE METABOLIC PANE [place] 12-05-2023 Albumin [Mass/Vol] 3.2 g/dL Normal 3.2-5.3 [facility] Comment on above: Performed By: #### C BCA, CMP, 11981-4, 2777-1 ####[facility] ([id number])[address] [place] [address] ALP [Catalytic activity/Vol] 58 U/L Normal 39-130 [facility] Comment on above: Performed By: #### C BCA, CMP, 94227-4, 2777-1 ####[facility] ([id number])5[address] [place] [address] ALT [Catalytic activity/Vol] 9 U/L Normal 0-31 [facility] Comment on above: Performed By: #### C BCA, CMP, , 2776-03 ####[facility] ([id number])[address] [place] [address] Anion gap [Moles/Vol] 8 mmol/L Normal 5-15 [facility] Comment on above: Performed By: #### C BCA, CMP, , 2776-03 ####[facility] ([id number])[address] [place] [address] AST [Catalytic activity/Vol] 15 U/L Normal 0-41 [facility] Comment on above: Performed By: #### C BCA, CMP, , 2776-03 ####[facility] ([id number])[address] [place] [address] Bilirubin [Mass/Vol] 0.4 mg/dL Normal 0.3-1.2 [facility] Comment on above: Performed By: #### C BCA, CMP, , 2776-03 ####[facility] ([id number])[address] [place] [address] Calcium [Mass/Vol] 9.4 mg/dL Normal 8.5-10.5 [facility] Comment on above: Performed By: #### C BCA, CMP, , 2776-03 ####[facility] ([id number])[address] [place] [address] Chloride [Moles/Vol] 105 mmol/L Normal 98-109 [facility] Comment on above: Performed By: #### C BCA, CMP, 2776-03 ####[facility] ([id number])[address] [place] [address] CO2 [Moles/Vol] 26 mmol/L Normal 22-32 [facility] Comment on above: Performed By: #### C BCA, CMP, 2776-03 ####[facility] ([id number])[address] [place] [address] Creatinine [Mass/Vol] 2.61 mg/dL High 0.40-1.00 [facility] Comment on above: Result Comment: METH OD TRACEABLE TO IDMS STANDARD Performed By: #### C BCA, CMP, 2776-03 ####[facility] ([id number])[address] [facility] [place] [address] GFR/1.73 sq M.predicted among non-blacks MDRD (S/P/Bld) [Vol rate/Area] 21 mL/min/{1.73_m2} Low >59 [facility] Comment on above: Result Comment: Repo rted eGFR is based on theCKD-EPI 2020 equation that doesnot use a race coefficient. Performed By: #### C BCA, CMP, 2776-03 ####[facility] ([id number])[address] [facility] [place] [address] Glucose [Mass/Vol] 95 mg/dL Normal 65-99 [facility] Comment on above: Performed By: #### C BCA, [facility], 2776-03 ####[facility] ([id number])[address] [facility] [place] [address] Potassium [Moles/Vol] 3.6 mmol/L Normal 3.5-5.0 [facility] Comment on above: Performed By: #### C BCA, CMP, 2776-03 ####[facility] ([id number])[address] [facility] [place] [address] Protein [Mass/Vol] 5.6 g/dL Low 6.0-8.0 [facility] Comment on above: Performed By: #### C BCA, CMP, 2776-03 ####[facility] ([id number])[address] [facility] [place] [address] Sodium [Moles/Vol] 139 mmol/L Normal 134-146 [facility] Comment on above: Performed By: #### C BCA, CMP, 85765-9, 277-1 ####[facility] ([id number])[address] [place] [place] [address] Urea nitrogen [Mass/Vol] 19 mg/dL Normal 5-23 [facility] Comment on above: Performed By: #### C BCA, CMP, 21399-0, 2776-1 ####[facility] ([id number])[address] [place] [address] Cobalamin (Vitamin B12) [Mas s/Vol]on 12-05-2023 [facility] Comprehensive metabolic pane [place] 12-05-2023 Albumin [Mass/Vol] 3.2 g/dL 3.2 - 5.3 g/dL [facility] ALP [Catalytic activity/Vol] 58 U/L 39 - 130 U/L [facility] ALT No additional P-5'-P [Catalytic activity/Vol] 9 U/L 0 - 31 U/L [facility] Anion gap [Moles/Vol] 8 mmol/L 5 - 15 mmol/L [facility] AST [Catalytic activity/Vol] 15 U/L 0 - 41 U/L [facility] Bilirubin [Mass/Vol] 0.4 mg/dL 0.3 - 1 .2 mg/dL [facility] Calcium [Mass/Vol] 9.4 mg/dL 8.5 - 10. 5 mg/dL [facility] Chloride [Moles/Vol] 105 mmol/L 98 - 10 9 mmol/L [facility] CO2 [Moles/Vol] 26 mmol/L 22 - 32 mmol/L [facility] Creatinine [Mass/Vol] 2.61 mg/dL High 0.40 - 1.00 mg/dL [facility] Comment on above: METHOD TRACEABLE TO IDAR STANDARD eGFR (CKD-EPI)non-race dependent 21 Low - PINF [facility] Comment on above: Reported eGFR is based on the CKD-EPI 2020 equation that does not use a race coefficient. Glucose [Mass/Vol] 95 mg/dL 65 - 99 mg/dL [facility] Potassium [Moles/Vol] 3.6 mmol/L 3.5 - 5.0 mmol/L [facility] Protein [Mass/Vol] 5.6 g/dL Low 6.0 - 8.0 g/dL [facility] Sodium [Moles/Vol] 139 mmol/L 134 - 146 mmol/L [facility] Urea nitrogen [Mass/Vol] 19 mg/dL 5 - 23 mg/dL [facility] Folateon 12-05-2023 Folate [Mass/Vol] 9.7 ng/mL 5.8 - PINF ng/mL [facility] Comment on above: NEW REFERENCE RANGE Folate [Mass/Vol]on 12-05-19 [facility] Iron and TIBCon 12-05-2023 Interpretation and review of laboratory results Abnormal [facility] Iron [Mass/Vol] ug/dL Low 50 - 170 ug/dL [facility] Iron binding capacity [Mass/Vol] 272 ug/dL 250 - 425 ug/dL [facility] Iron saturation [Mass fraction] Low [facility] MAGNESIUMon 12-05-2023 Magnesium [Mass/Vol] 1.8 mg/dL Normal 1.8-2.6 [facility] Comment on above: Performed By: #### 2 823-3, ####[facility] ([id number])[address] [place] [address] Magnesium [Mass/Vol] 1.5 mg/dL Low 1.8-2.6 [facility] Comment on above: Performed By: #### C BCA, CMP, 86611-2, 2777-1 ####[facility] ([id number])[address] [place] [address] Magnesiumon 12-05-2023 Magnesium [Mass/Vol] 1.8 mg/dL 1.8 - 2 .6 mg/dL [facility] Magnesium [Mass/Vol] 1.5 mg/dL Low 1.8 - 2 .6 mg/dL [facility] No Panel Informationon 12-04 [facility] Interpretation and review of laboratory results Abnormal [facility] PHOSPHORUSon 12-05-2023 Phosphate [Mass/Vol] 4.1 mg/dL Normal 2.4-4.9 [facility] Comment on above: Performed By: #### C BCA, CMP, 18930-1, 2777-1 ####[facility] ([id number])[address] [place] [address] POTASSIUMon 12-05-2023 Potassium [Moles/Vol] 3.6 mmol/L Normal 3.5-5.0 [facility] Comment on above: Performed By: #### 2 823-3, 01710-2 ####[facility] ([id number])[address] [place] [address] Phosphoruson 12-05-2023 Phosphate [Mass/Vol] 4.1 mg/dL 2.4 - 4 .9 mg/dL [facility] Potassiumon 12-05-2023 Potassium [Moles/Vol] 3.6 mmol/L 3.5 - 5.0 mmol/L [facility] RESP PATHOGENS/[id number] 12-05-2023 Respiratory pathogens DNA and RNA panel KYLE+non-probe (Nph) Normal [facility] Comment on above: Performed By: #### 8 2159-5 ####[facility] MAIN [facility] ([id number])[address] [place], [place] [address] ([id number])[address] [facility], [address] [address] Respiratory pathogens DNA an d RNA panel KYLE+non-probe (Nph)on 12-05-2023 Adenovirus DNA KYLE+non-probe Ql (Nph) Not detected Not Detected^Not Detected [facility] B. parapertussis [id number] DNA KYLE+non-probe Ql (Nph) Not detected Not Detected^Not Detected [facility] B. pertussis toxin promoter region KYLE+non-probe Ql (Nph) Not detected Not Detected^Not Detected [facility] C. pneumoniae DNA KYLE+non-probe Ql (Nph) Not detected Not Detected^Not Detected [facility] FLUAV RNA KYLE+non-probe Ql (Nph) Not detected Not Detected^Not Detected [facility] FLUBV RNA KYLE+non-probe Ql (Nph) Not detected Not Detected^Not Detected [facility] HCoV 229E RNA KYLE+non-probe Ql (Nph) Not detected Not Detected^Not Detected [facility] HCoV HKU1 RNA KYLE+non-probe Ql (Nph) Not detected Not Detected^Not Detected [facility] HCoV NL63 RNA KYLE+non-probe Ql (Nph) Not detected Not Detected^Not Detected [facility] HCoV OC43 RNA KYLE+non-probe Ql (Nph) Not detected Not Detected^Not Detected [facility] hMPV RNA KYLE+non-probe Ql (Nph) Not detected Not Detected^Not Detected [facility] M. pneumoniae DNA KYLE+non-probe Ql (Nph) Not detected Not Detected^Not Detected [facility] Parainfluenza virus 1 RNA KYLE+non-probe Ql (Nph) Not detected Not Detected^Not Detected [facility] Parainfluenza virus 2 RNA KYLE+non-probe Ql (Nph) Not detected Not Detected^Not Detected [facility] Parainfluenza virus 3 RNA KYLE+non-probe Ql (Nph) Not detected Not Detected^Not Detected [facility] Parainfluenza virus 4 RNA KYLE+non-probe Ql (Nph) Not detected Not Detected^Not Detected [facility] Rhinovirus+Enteroviru s RNA KYLE+non-probe Ql (Nph) Not detected Not Detected^Not Detected [facility] RSV RNA KYLE+non-probe Ql (Nph) Not detected Not Detected^Not Detected [facility] SARS-CoV-2 (COVID-19) RNA KYLE+probe Ql (Resp) Not detected Not Detected^Not Detected [facility] Comment on above: NOTE The BioFire [...] other pathogens. The agent(s) detected by the [employer] RP2.1 may not be the definite cause [...] Specimen source Nom (Body fld) NASO PHARYNX [facility] Vitamin B12on 12-05-2023 Cobalamin (Vitamin B12) [Mass/Vol] 185 pg/mL 180 - 914 pg/mL [facility] XR CHEST 1 VWon 12-05-2023 XR CHEST 1 VW Normal [facility] XR Chest Single viewon 12-04 Clinical history: Fever Views: 1 Comparison: None Findings/Impression: 1. Heart size stable. No focal infiltrate or volume loss. No pneumothorax. 2. Scoliosis. 3. No pneumothorax nor large effusion. 4. In summary findings most consistent with mild vascular congestion.. Finalized by Brice Sanders MD on 12/05/2023 12:16 PM [facility] Brice Sanders MD - 12/05/2023 Clinical history: Fever Views: 1 Comparison: None Findings/Impression: 1. Heart size stable. No focal infiltrate or volume loss. No pneumothorax. 2. Scoliosis. 3. No pneumothorax nor large effusion. 4. In summary findings most consistent with mild vascular congestion.. Finalized by Brice Sanders MD on 12/05/2023 12:16 PM [facility] Radiology Study observation (narrative) [facility] XR Chest Single viewOrdered By: Brice Sanders on 12-05-2023 [facility] Work Phone: Bacteria identified Cx Nom ( U)on 12-04-2023 Service comment (Unsp spec) [Interp] NO GROWTH AT <1000 CFU/mL [facility] CBC AND AUTO DIFFon 12-04-19 24 ABSOLUTE BASOPHIL 0.0 X10E9/L Normal 0.0-0.2 [facility] Comment on above: Performed By: #### Jamal MYERS CMP, , 2776-03 ####[facility] ([id number])[address] [place] [address] ABSOLUTE NEUTROPHIL 3.1 X10E9/L Normal 1.5-6.6 [facility] Comment on above: Performed By: #### Jamal BCA, CMP, , 2776-03 ####[facility] ([id number])[address] [place] [address] Basophils/100 WBC (Bld) 0.3 % Normal [facility] Comment on above: Performed By: #### Jamal BCA, CMP, , 2776-03 ####[facility] ([id number])[address] [place] [address] Eosinophils (Bld) [#/Vol] 0.4 10*3/uL Normal 0.0-0.4 [facility] Comment on above: Performed By: #### Jamal BCA, CMP, , 2776-03 ####[facility] ([id number])[address] [place] [address] Eosinophils/100 WBC (Bld) 8.5 % Normal [facility] Comment on above: Performed By: #### Jamal BCA, CMP, , 2776-03 ####[facility] ([id number])[address] [place] [address] Erythrocyte distribution width (RBC) [Ratio] 14.0 % Normal 11.5-15.0 [facility] Comment on above: Performed By: #### C LUCIA, CMP, , 2776-03 ####[facility] ([id number])[address] [place] [address] Hematocrit (Bld) [Volume fraction] 21.2 % Low 35-47 [facility] Comment on above: Performed By: #### C LUCIA, CMP, , 2776-03 ####[facility] ([id number])[address] [facility] [place] [address] Hemoglobin (Bld) [Mass/Vol] 7.3 g/dL Low 11.7-15.5 [facility] Comment on above: Performed By: #### Jamal MYERS, [facility], , 2776-03 ####[facility] ([id number])5[address] [facility] [place] [address] Lymphocytes (Bld) [#/Vol] 0.4 10*3/uL Low 1.0-3.5 [facility] Comment on above: Performed By: #### C LUCIA, [facility], , 2776-03 ####[facility] ([id number])5[address] [facility] [address] Lymphocytes/100 WBC (Bld) 10.0 % Normal [facility] Comment on above: Performed By: #### C BCA, [facility], , 2776-03 ####[facility] ([id number])5[address] [facility] [place] [address] MCH (RBC) [Entitic mass] 30.7 pg Normal 27-34 [facility] Comment on above: Performed By: #### Jamal BCA, CMP, 2776-03 ####[facility] ([id number])[address] [facility] [place] [address] MCHC (RBC) [Mass/Vol] 34.3 g/dL Normal 32-36 [facility] Comment on above: Performed By: #### C BCA, CMP, , 2776-03 ####[facility] ([id number])[address] [place] [address] MCV (RBC) [Entitic vol] 90 fL Normal 80-100 [facility] Comment on above: Performed By: #### C BCA, CMP, , 2776-03 ####[facility] ([id number])5[address] [facility] [address] Monocytes (Bld) [#/Vol] 0.5 10*3/uL Normal 0-0.9 [facility] Comment on above: Performed By: #### C BCA, CMP, , 2776-03 ####[facility] ([id number])[address] [place] [address] Monocytes/100 WBC (Bld) 10.6 % Normal [facility] Comment on above: Performed By: #### C BCA, CMP, , 2776-03 ####[facility] ([id number])5[address] [facility] [place] [address] Neutrophils/100 WBC (Bld) 70.6 % Normal [facility] Comment on above: Performed By: #### C BCA, CMP, , 2776-03 ####[facility] ([id number])5[address] [facility] [address] Platelet mean volume (Bld) [Entitic vol] 6.4 fL Low 7-12 [facility] Comment on above: Performed By: #### C BCA, CMP, , 2776-03 ####[facility] ([id number])[address] [facility] [place] [address] Platelets (Bld) [#/Vol] 201 10*3/uL Normal 150-450 [facility] Comment on above: Performed By: #### Jamal BCA, CMP, , 2776-03 ####[facility] ([id number])[address] [place] [address] RBC COUNT 2.37 X10E12/L Low 3.80-5.20 [facility] Comment on above: Performed By: #### C BCA, CMP, 62801-9, 2771 ####[facility] ([id number])[address] [place] [address] WBC (Bld) [#/Vol] 4.3 10*3/uL Normal 4.0-11.0 [facility] Comment on above: Performed By: #### C BCA, CMP, , 2776-03 ####[facility] ([id number])[address] [place] [address] CBC auto differentialon 10-0 Basophils (Bld) [#/Vol] 0.0 10*3/uL [facility] Basophils/100 WBC (Bld) 0.3 % [facility] Eosinophils (Bld) [#/Vol] 0.4 10*3/uL [facility] Eosinophils/100 WBC (Bld) 8.5 % [facility] Erythrocyte distribution width (RBC) [Ratio] 14.0 % 11.5 - 15.0 % [facility] Hematocrit (Bld) [Volume fraction] 21.2 % Low 35 - 47 % [facility] Hemoglobin (Bld) [Mass/Vol] 7.3 g/dL Low 11.7 - 15.5 g/dL [facility] Interpretation and review of laboratory results Abnormal [facility] Lymphocytes (Bld) [#/Vol] 0.4 10*3/uL Low [facility] Lymphocytes/100 WBC (Bld) 10.0 % [facility] MCH (RBC) [Entitic mass] 30.7 pg 27 - 34 pg [facility] MCHC (RBC) [Mass/Vol] 34.3 g/dL 32 - 36 g/dL [facility] MCV (RBC) [Entitic vol] 90 fL 80 - 100 fL [facility] Monocytes (Bld) [#/Vol] 0.5 10*3/uL [facility] Monocytes/100 WBC (Bld) 10.6 % [facility] Neutrophils (Bld) [#/Vol] 3.1 10*3/uL [facility] Neutrophils/100 WBC (Bld) 70.6 % [facility] Platelet mean volume (Bld) [Entitic vol] 6.4 fL Low 7 - 12 fL [facility] Platelets (Bld) [#/Vol] 201 10*3/uL [facility] RBC (Bld) [#/Vol] 2.37 10*6/uL Low [facility] WBC corrected for nucl RBC Auto (Bld) [#/Vol] 4.3 [facility] COMPREHENSIVE METABOLIC PANE [place] 12-04-2023 Albumin [Mass/Vol] 3.2 g/dL Normal 3.2-5.3 [facility] Comment on above: Performed By: #### C BCA, CMP, , 2776-03 ####[facility] ([id number])[address] [place] [address] ALP [Catalytic activity/Vol] 56 U/L Normal 39-130 [facility] Comment on above: Performed By: #### C BCA, CMP, , 2776-03 ####[facility] ([id number])[address] [place] [address] ALT [Catalytic activity/Vol] 9 U/L Normal 0-31 [facility] Comment on above: Performed By: #### C BCA, CMP, , 2776-03 ####[facility] ([id number])[address] [place] [address] Anion gap [Moles/Vol] 6 mmol/L Normal 5-15 [facility] Comment on above: Performed By: #### C BCA, CMP, , 2776-03 ####[facility] ([id number])[address] [place] [address] AST [Catalytic activity/Vol] 15 U/L Normal 0-41 [facility] Comment on above: Performed By: #### C BCA, CMP, , 2776-03 ####[facility] ([id number])[address] [place] [address] Bilirubin [Mass/Vol] 0.5 mg/dL Normal 0.3-1.2 [facility] Comment on above: Performed By: #### C BCA, CMP, , 2776-03 ####[facility] ([id number])5[address] [facility] [address] Calcium [Mass/Vol] 9.2 mg/dL Normal 8.5-10.5 [facility] Comment on above: Performed By: #### C BCA, CMP, 2776-03 ####[facility] ([id number])5[address] [facility] [address] Chloride [Moles/Vol] 107 mmol/L Normal 98-109 [facility] Comment on above: Performed By: #### C BCA, CMP, 2776-03 ####[facility] ([id number])[address] [facility] [address] CO2 [Moles/Vol] 25 mmol/L Normal 22-32 [facility] Comment on above: Performed By: #### C BCA, CMP, 2776-03 ####[facility] ([id number])5[address] [facility] [place] [address] Creatinine [Mass/Vol] 2.81 mg/dL High 0.40-1.00 [facility] Comment on above: Result Comment: METH OD TRACEABLE TO IDMS STANDARD Performed By: #### C BCA, CMP, 2776-03 ####[facility] ([id number])5[address] [facility] [address] GFR/1.73 sq M.predicted among non-blacks MDRD (S/P/Bld) [Vol rate/Area] 19 mL/min/{1.73_m2} Low >59 [facility] Comment on above: Result Comment: Repo rted eGFR is based on theCKD-EPI 2020 equation that doesnot use a race coefficient. Performed By: #### C HILLARY MYERS, , 2776-03 ####[facility] ([id number])[address] [place] [address] Glucose [Mass/Vol] 91 mg/dL Normal 65-99 [facility] Comment on above: Performed By: #### C HILLARY MYERS, , 2776-03 ####[facility] ([id number])5[address] [facility] [place] [address] Potassium [Moles/Vol] 3.4 mmol/L Low 3.5-5.0 [facility] Comment on above: Performed By: #### C HILLARY MYERS, , 2776-03 ####[facility] ([id number])5[address] [facility] [place] [address] Protein [Mass/Vol] 5.4 g/dL Low 6.0-8.0 [facility] Comment on above: Performed By: #### C HILLARY MYERS, , 2776-03 ####[facility] ([id number])[address] [place] [address] Sodium [Moles/Vol] 138 mmol/L Normal 134-146 [facility] Comment on above: Performed By: #### C LUCIA CMP, , 2776-03 ####[facility] ([id number])[address] [facility] [place] [address] Urea nitrogen [Mass/Vol] 24 mg/dL High 5-23 [facility] Comment on above: Performed By: #### C LUCIA CMP, 2776-03 ####[facility] ([id number])[address] [facility] [place] [address] Calcium.ionized (Bld) [Mass/ Vol]on 12-04-2023 [facility] IONIZED CALCIUM 5.0 mg/dL Normal 4.5-5.3 [facility] Comment on above: Performed By: #### 3 8230-9 ####[facility] ([id number])5[address] [place] [address] Comprehensive metabolic pane [place] 12-04-2023 Albumin [Mass/Vol] 3.2 g/dL 3.2 - 5.3 g/dL [facility] ALP [Catalytic activity/Vol] 56 U/L 39 - 130 U/L [facility] ALT No additional P-5'-P [Catalytic activity/Vol] 9 U/L 0 - 31 U/L [facility] Anion gap [Moles/Vol] 6 mmol/L 5 - 15 mmol/L [facility] AST [Catalytic activity/Vol] 15 U/L 0 - 41 U/L [facility] Bilirubin [Mass/Vol] 0.5 mg/dL 0.3 - 1 .2 mg/dL [facility] Calcium [Mass/Vol] 9.2 mg/dL 8.5 - 10. 5 mg/dL [facility] Chloride [Moles/Vol] 107 mmol/L 98 - 10 9 mmol/L [facility] CO2 [Moles/Vol] 25 mmol/L 22 - 32 mmol/L [facility] Creatinine [Mass/Vol] 2.81 mg/dL High 0.40 - 1.00 mg/dL [facility] Comment on above: METHOD TRACEABLE TO [facility] STANDARD eGFR (CKD-EPI)non-race dependent 19 Low - PINF [facility] Comment on above: Reported eGFR is based on the CKD-EPI 2020 equation that does not use a race coefficient. Glucose [Mass/Vol] 91 mg/dL 65 - 99 mg/dL [facility] Interpretation and review of laboratory results Abnormal [facility] Potassium [Moles/Vol] 3.4 mmol/L Low 3.5 - 5.0 mmol/L [facility] Protein [Mass/Vol] 5.4 g/dL Low 6.0 - 8.0 g/dL [facility] Sodium [Moles/Vol] 138 mmol/L 134 - 146 mmol/L [facility] Urea nitrogen [Mass/Vol] 24 mg/dL High 5 - 23 mg/dL [facility] Folate [Mass/Vol]on 12-04-19 24 FOLIC ACID 9.7 ng/mL Normal >5.8 [facility] Comment on above: Result Comment: NEW REFERENCE RANGE Performed By: #### 2 [id number] ####[facility] ([id number])[address] [place] [address]#### 2284-8, 9, FEPR ####[facility] ([id number])2130 [facility], [address] [place] [address] IRON PROFILEon 12-04-2023 Iron [Mass/Vol] ug/dL Low 50-170 [facility] Comment on above: Performed By: #### 2 823-3 ####[facility] ([id number])[address] [place] [address]#### 2284-8, 9, FEPR ####[facility] ([id number])2130 [facility], [address] [place] [address] IRON BINDING 272 ug/dL Normal 250-425 [facility] Comment on above: Performed By: #### 2 823-3 ####[facility] ([id number])[address] [place] [address]#### 2284-8, 9, FEPR ####[facility] ([id number])2130 [facility] [address] [place] [address] IRON SATURATION <4 Low 15-50 [facility] Comment on above: Performed By: #### 2 823-3 ####[facility] ([id number])[address] [place] [address]#### 2284-8, 2131-11, FEPR ####[facility] ([id number])2130 [facility], [address] [address] Ionized calciumon 12-04-2023 Calcium.ionized (Bld) [Mass/Vol] 5.0 mg/dL 4.5 - 5.3 mg/dL [facility] MAGNESIUMon 12-04-2023 Magnesium [Mass/Vol] 1.9 mg/dL Normal 1.8-2.6 [facility] Comment on above: Performed By: #### C BCA, CMP, , 1 ####[facility] ([id number])[address] [place] [address] Magnesiumon 12-04-2023 Magnesium [Mass/Vol] 1.9 mg/dL 1.8 - 2 .6 mg/dL [facility] No Panel Informationon 12-03 [facility] PHOSPHORUSon 12-04-2023 Phosphate [Mass/Vol] 3.9 mg/dL Normal 2.4-4.9 [facility] Comment on above: Performed By: #### C BCA, CMP, , 2771 ####[facility] ([id number])[address] [place] [address] POTASSIUMon 12-04-2023 Potassium [Moles/Vol] 3.7 mmol/L Normal 3.5-5.0 [facility] Comment on above: Performed By: #### 2 823-3 ####[facility] ([id number])[address] [place] [address]#### 2284-8, 2132-9, FEPR ####[facility] ([id number])2130 [facility], [address], [place] [address] Phosphoruson 12-04-2023 Phosphate [Mass/Vol] 3.9 mg/dL 2.4 - 4 .9 mg/dL [facility] Potassiumon 12-04-2023 Potassium [Moles/Vol] 3.7 mmol/L 3.5 - 5.0 mmol/L [facility] Potassium [Moles/Vol]on [facility] Protein electrophoresis, ser umon 12-04-2023 Albumin [Mass/Vol] 3.1 g/dL Low 3.4 - 5.3 g/dL [facility] Alpha 1 globulin Elph [Mass/Vol] 0.4 g/dL 0.1 - 0.4 g/dL [facility] Alpha 2 globulin Elph [Mass/Vol] 0.7 g/dL 0.4 - 1.1 g/dL [facility] Beta globulin Elph [Mass/Vol] 0.7 g/dL 0.5 - 1.2 g/dL [facility] Gamma globulin Elph [Mass/Vol] 0.6 g/dL 0.5 - 1.6 g/dL [facility] Interpretation and review of laboratory results Abnormal [facility] Pathologist interpretation (Bld) [Interp] Unremarkable protein distribution, no monoclonal bands. [facility] Protein [Mass/Vol] 5.4 g/dL Low 6.0 - 8.0 g/dL [facility] US RETROPERITONEAL COMPLETEo n 12-04-2023 US RETROPERITONEAL COMPLETE Normal [facility] US Retroperitoneumon 024 ULTRASOUND RETROPERITONEUM INDICATION: [...] or collecting system dilatation. Finalized by Jesus Singh MD on 12/04/2023 9:23 AM [facility] Jesus Singh MD - 12/04/2023 ULTRASOUND RETROPERITONEUM INDICATION: Acute [...] or collecting system dilatation. Finalized by Jesus Singh MD on 12/04/2023 9:23 AM [facility] Radiology Study observation (narrative) [facility] [employer] [facility] US RetroperitoneumOrdered By : Jesus Singh on 12-04-2023 [facility] [employer] Work Phone: VITAMIN B12on 12-04-2023 Cobalamin (Vitamin B12) [Mass/Vol] 185 pg/mL Normal 180-914 [facility] Comment on above: Performed By: #### 2 823-3 ####[facility] ([id number])[address] [place] [address]#### 2284-8, 2132-9, FEPR ####[facility] ([id number])2130 [facility], [address] [place] [address] JUSTIN Screen w/ Reflexon 12-02 Nuclear Ab IA Ql (S) Negative Negativ e^Neg ative [facility] Comment on above: Testing performed using multiplex flow immunoassay. Eleven different antigens associated with systemic autoimmune diseases (dsDNA,Sm,Sm/SUPERVISING ARCHITECT,SUPERVISING ARCHITECT,Chromatin, SSA,SSB,Alice-1,Scl70,Ribo P,Centromere B) are included in this screening test. APTTon 12-03-2023 aPTT Coag (PPP) [Time] 35 s [facility] Auto Diff (add on use only)o n 12-03-2023 Basophils (Bld) [#/Vol] 0.0 10*3/uL [facility] Basophils/100 WBC (Bld) 0.4 % [facility] Eosinophils (Bld) [#/Vol] 0.3 10*3/uL [facility] Eosinophils/100 WBC (Bld) 6.0 % [facility] Lymphocytes (Bld) [#/Vol] 0.6 10*3/uL Low [facility] Lymphocytes/100 WBC (Bld) 10.9 % [facility] Monocytes (Bld) [#/Vol] 0.5 10*3/uL [facility] Monocytes/100 WBC (Bld) 9.4 % [facility] Neutrophils (Bld) [#/Vol] 4.2 10*3/uL [facility] Neutrophils/100 WBC (Bld) 73.3 % [facility] CBC without diffon Erythrocyte distribution width (RBC) [Ratio] 14.2 % 11.5 - 15.0 % [facility] Hematocrit (Bld) [Volume fraction] 22.9 % Low 35 - 47 % [facility] Hemoglobin (Bld) [Mass/Vol] 8.0 g/dL Low 11.7 - 15.5 g/dL [facility] MCH (RBC) [Entitic mass] 31.3 pg 27 - 34 pg [facility] MCHC (RBC) [Mass/Vol] 34.9 g/dL 32 - 36 g/dL [facility] MCV (RBC) [Entitic vol] 90 fL 80 - 100 fL [facility] Platelet mean volume (Bld) [Entitic vol] 6.5 fL Low 7 - 12 fL [facility] Platelets (Bld) [#/Vol] 233 10*3/uL [facility] RBC (Bld) [#/Vol] 2.55 10*6/uL Low [facility] WBC corrected for nucl RBC Auto (Bld) [#/Vol] 5.8 [facility] CK Totalon 12-03-2023 CK [Catalytic activity/Vol] 52 U/L 24 - 170 U/L [facility] CK [Catalytic activity/Vol]o n 12-03-2023 [facility] CPK 52 U/L Normal 24-170 [facility] Comment on above: Performed By: #### 2 157-6 ####[facility] ([id number])[address] [place] [address]#### C34, SPE, [id number], 08931-7, 6969-0, 6968-2 ####[facility] ([id number])2130 [facility], [address] [place] [address] COMPLEMENT PROFILEon 024 COMPLEMENT C3 158 mg/dL Normal 86-184 [facility] Comment on above: Performed By: #### 2 157-6 ####[facility] ([id number])[address] [place] [address]#### C34, SPE, 56996-3, 10722-7, 6969-0, 6968-2 ####[facility] ([id number])2[address] [facility], [address] [address] COMPLEMENT C4 38 mg/dL Normal 16-47 [facility] Comment on above: Performed By: #### 2 157-6 ####[facility] ([id number])[address] [place] [address]#### C34, SPE, 30133-5, 09207-7, 6969-0, 6968-2 ####[facility] ([id number])[address] [facility], [address] [address] COMPLETE BLOOD COUNTon 12-02 Erythrocyte distribution width (RBC) [Ratio] 14.2 % Normal 11.5-15.0 [facility] Comment on above: Performed By: #### C BC, DIFFA, CMP, , ####[facility] ([id number])[address] [place] [address] Hematocrit (Bld) [Volume fraction] 22.9 % Low 35-47 [facility] Comment on above: Performed By: #### C BC, DIFFA, CMP, ####[facility] ([id number])[address] [place] [address] Hemoglobin (Bld) [Mass/Vol] 8.0 g/dL Low 11.7-15.5 [facility] Comment on above: Performed By: #### C BC, DIFFA, CMP, ####[facility] ([id number])[address] [place] [address] MCH (RBC) [Entitic mass] 31.3 pg Normal 27-34 [facility] Comment on above: Performed By: #### C BC, DIFFA, CMP, , ####[facility] ([id number])5200 [facility] [address] MCHC (RBC) [Mass/Vol] 34.9 g/dL Normal 32-36 [facility] Comment on above: Performed By: #### C BC, DIFFA, CMP, , ####[facility] ([id number])5[address] [facility] [place] [address] MCV (RBC) [Entitic vol] 90 fL Normal 80-100 [facility] Comment on above: Performed By: #### C BC, DIFFA, CMP, , ####[facility] ([id number])5[address] [facility] [place] [address] Platelet mean volume (Bld) [Entitic vol] 6.5 fL Low 7-12 [facility] Comment on above: Performed By: #### C BC, DIFFA, CMP, , ####[facility] ([id number])5[address] [place] [address] Platelets (Bld) [#/Vol] 233 10*3/uL Normal 150-450 [facility] Comment on above: Performed By: #### C BC, DIFFA, CMP, ####[facility] ([id number])5[address] [facility] [place] [address] RBC COUNT 2.55 X10E12/L Low 3.80-5.20 [facility] Comment on above: Performed By: #### C BC, DIFFA, CMP, ####[facility] ([id number])5[address] [facility] [place] [address] WBC (Bld) [#/Vol] 5.8 10*3/uL Normal 4.0-11.0 [facility] Comment on above: Performed By: #### C BC, DIFFA, CMP, ####[facility] ([id number])[address] [place] [address] COMPREHENSIVE METABOLIC PANE [place] 12-03-2023 Albumin [Mass/Vol] 3.3 g/dL Normal 3.2-5.3 [facility] Comment on above: Performed By: #### C BC, DIFFA, CMP, ####[facility] ([id number])[address] [place] [address] ALP [Catalytic activity/Vol] 60 U/L Normal 39-130 [facility] Comment on above: Performed By: #### C BC, DIFFA, CMP, , ####[facility] ([id number])[address] [place] [address] ALT [Catalytic activity/Vol] 10 U/L Normal 0-31 [facility] Comment on above: Performed By: #### C BC, DIFFA, CMP, , ####[facility] ([id number])[address] [place] [address] Anion gap [Moles/Vol] 8 mmol/L Normal 5-15 [facility] Comment on above: Performed By: #### C BC, DIFFA, CMP, ####[facility] ([id number])[address] [place] [address] AST [Catalytic activity/Vol] 19 U/L Normal 0-41 [facility] Comment on above: Performed By: #### C BC, DIFFA, CMP, ####[facility] ([id number])[address] [place] [address] Bilirubin [Mass/Vol] 0.6 mg/dL Normal 0.3-1.2 [facility] Comment on above: Performed By: #### C BC, DIFFA, CMP, ####[facility] ([id number])[address] [facility] [place] [address] Calcium [Mass/Vol] 9.2 mg/dL Normal 8.5-10.5 [facility] Comment on above: Performed By: #### C BC, DIFFA, CMP, , ####[facility] ([id number])5[address] [facility] [address] Chloride [Moles/Vol] 104 mmol/L Normal 98-109 [facility] Comment on above: Performed By: #### C BC, DIFFA, CMP, , ####[facility] ([id number])5[address] [facility] [place] [address] CO2 [Moles/Vol] 25 mmol/L Normal 22-32 [facility] Comment on above: Performed By: #### C BC, DIFFA, CMP, ####[facility] ([id number])5[address] [facility] [place] [address] Creatinine [Mass/Vol] 2.49 mg/dL High 0.40-1.00 [facility] Comment on above: Result Comment: METH OD TRACEABLE TO IDMS STANDARD Performed By: #### C BC, DIFFA, CMP, , ####[facility] ([id number])5[address] [facility] [place] [address] GFR/1.73 sq M.predicted among non-blacks MDRD (S/P/Bld) [Vol rate/Area] 23 mL/min/{1.73_m2} Low >59 [facility] Comment on above: Result Comment: Repo rted eGFR is based on theCKD-EPI 2020 equation that doesnot use a race coefficient. Performed By: #### C BC, DIFFA, CMP, , ####[facility] ([id number])5[address] [facility] [place] [address] Glucose [Mass/Vol] 103 mg/dL High 65-99 [facility] Comment on above: Performed By: #### C BC, DIFFA, CMP, , ####[facility] ([id number])[address] [place] [address] Potassium [Moles/Vol] 3.1 mmol/L Low 3.5-5.0 [facility] Comment on above: Performed By: #### C BC, DIFFA, CMP, , ####[facility] ([id number])[address] [place] [address] Protein [Mass/Vol] 5.5 g/dL Low 6.0-8.0 [facility] Comment on above: Performed By: #### C BC, DIFFA, CMP, , ####[facility] ([id number])[address] [place] [address] Sodium [Moles/Vol] 137 mmol/L Normal 134-146 [facility] Comment on above: Performed By: #### C BC, DIFFA, CMP, , ####[facility] ([id number])[address] [place] [address] Urea nitrogen [Mass/Vol] 25 mg/dL High 5-23 [facility] Comment on above: Performed By: #### C BC, DIFFA, CMP, ####[facility] ([id number])[address] [place] [address] Complement profile (C3 AND C 4)on 12-03-2023 Complement C3 [Mass/Vol] 158 mg/dL 86 - 184 mg/dL [facility] Complement C4 [Mass/Vol] 38 mg/dL 16 - 47 mg/dL [facility] Comprehensive metabolic pane rome 12-03-2023 Albumin [Mass/Vol] 3.3 g/dL 3.2 - 5.3 g/dL [facility] ALP [Catalytic activity/Vol] 60 U/L 39 - 130 U/L [facility] ALT No additional P-5'-P [Catalytic activity/Vol] 10 U/L 0 - 31 U/L [facility] Anion gap [Moles/Vol] 8 mmol/L 5 - 15 mmol/L [facility] AST [Catalytic activity/Vol] 19 U/L 0 - 41 U/L [facility] Bilirubin [Mass/Vol] 0.6 mg/dL 0.3 - 1 .2 mg/dL [facility] Calcium [Mass/Vol] 9.2 mg/dL 8.5 - 10. 5 mg/dL [facility] Chloride [Moles/Vol] 104 mmol/L 98 - 10 9 mmol/L [facility] CO2 [Moles/Vol] 25 mmol/L 22 - 32 mmol/L [facility] Creatinine [Mass/Vol] 2.49 mg/dL High 0.40 - 1.00 mg/dL [facility] Comment on above: METHOD TRACEABLE TO [facility] STANDARD eGFR (CKD-EPI)non-race dependent 23 Low - PINF [facility] Comment on above: Reported eGFR is based on the CKD-EPI 2020 equation that does not use a race coefficient. Glucose [Mass/Vol] 103 mg/dL High 65 - 99 mg/dL [facility] Potassium [Moles/Vol] 3.1 mmol/L Low 3.5 - 5.0 mmol/L [facility] Protein [Mass/Vol] 5.5 g/dL Low 6.0 - 8.0 g/dL [facility] Sodium [Moles/Vol] 137 mmol/L 134 - 146 mmol/L [facility] Urea nitrogen [Mass/Vol] 25 mg/dL High 5 - 23 mg/dL [facility] DIFFERENTIALon 12-03-2023 ABSOLUTE BASOPHIL 0.0 X10E9/L Normal 0.0-0.2 [facility] Comment on above: Performed By: #### C SHAY BROWN, [facility], 54389-9, 54748-1 ####[facility] ([id number])[address] [place] [address] ABSOLUTE NEUTROPHIL 4.2 X10E9/L Normal 1.5-6.6 [facility] Comment on above: Performed By: #### C KEVIN DIFFA, CMP, , ####[facility] ([id number])[address] [place] [address] Basophils/100 WBC (Bld) 0.4 % Normal [facility] Comment on above: Performed By: #### C BC, DIFFA, CMP, , ####[facility] ([id number])[address] [place] [address] Eosinophils (Bld) [#/Vol] 0.3 10*3/uL Normal 0.0-0.4 [facility] Comment on above: Performed By: #### C BC, DIFFA, CMP, , ####[facility] ([id number])[address] [place] [address] Eosinophils/100 WBC (Bld) 6.0 % Normal [facility] Comment on above: Performed By: #### C BC, DIFFA, CMP, , ####[facility] ([id number])[address] [place] [address] Lymphocytes (Bld) [#/Vol] 0.6 10*3/uL Low 1.0-3.5 [facility] Comment on above: Performed By: #### C BC, DIFFA, CMP, ####[facility] ([id number])[address] [facility] [place] [address] Lymphocytes/100 WBC (Bld) 10.9 % Normal [facility] Comment on above: Performed By: #### C BC, DIFFA, CMP, , ####[facility] ([id number])[address] [place] [address] Monocytes (Bld) [#/Vol] 0.5 10*3/uL Normal 0-0.9 [facility] Comment on above: Performed By: #### C BC, DIFFA, CMP, , ####[facility] ([id number])[address] [facility] [place] [address] Monocytes/100 WBC (Bld) 9.4 % Normal [facility] Comment on above: Performed By: #### C BC, DIFFA, CMP, , ####[facility] ([id number])[address] [place] [address] Neutrophils/100 WBC (Bld) 73.3 % Normal [facility] Comment on above: Performed By: #### C BC, DIFFA, CMP, , ####[facility] ([id number])[address] [facility] [place] [address] ECG 12 leadon 12-03-2023 TRACEMASTERVUE [facility] Glomerular basement membrane IgG ABon 12-03-2023 Glomerular basement membrane IgG Qn (S) NINF [facility] Glomerular basement membrane IgG Qn (S)on 12-03-2023 GBM IgG Ab <0.2 Normal <1.0 [facility] Comment on above: Performed By: #### 2 157-6 ####[facility] ([id number])[address] [place] [address]#### C34, SPE, 51572-0, 08622-2, 6969-0, 6968-2 ####[facility] ([id number])[address] [facility], [address] [address] MAGNESIUMon 12-03-2023 Magnesium [Mass/Vol] 2.2 mg/dL Normal 1.8-2.6 [facility] Comment on above: Performed By: #### 2 823-3, ####[facility] ([id number])[address] [place] [address] Magnesium [Mass/Vol] 1.5 mg/dL Low 1.8-2.6 [facility] Comment on above: Performed By: #### C BC, DIFFA, CMP, , 70833-7 ####[facility] ([id number])[address] [place] [address] Magnesiumon 12-03-2023 Magnesium [Mass/Vol] 2.2 mg/dL 1.8 - 2 .6 mg/dL [facility] Magnesium [Mass/Vol] 1.5 mg/dL Low 1.8 - 2 .6 mg/dL [facility] Myeloperoxidase ABon 024 Myeloperoxidase Ab Qn (S) NINF [facility] Myeloperoxidase Ab Qn (S)on 12-03-2023 Myeloperoxidase Ab <0.2 Normal <1.0 [facility] Comment on above: Performed By: #### 2 157-6 ####[facility] ([id number])[facility] [place] [address]#### C34, SPE, 82307-2, 51385-7, 6969-0, 6968-2 ####[facility] ([id number])[address] [place] [address], [address] [address] No Panel Informationon 12-02 [facility] Interpretation and review of laboratory results Abnormal [facility] Interpretation and review of laboratory results Abnormal [facility] Nuclear Ab IA Ql (S)on 12-02 [facility] JUSTIN Screen w/reflex Negative Normal NEG [facility] Comment on above: Result Comment: Test ing performed using multiplex flowimmunoassay. Eleven different antigensassociated with systemic autoimmunediseases (dsDNA,Sm,Sm/SUPERVISING ARCHITECT,SUPERVISING ARCHITECT,Chromatin,SSA,SSB,Alice-1,Scl70,Ribo P,Centromere B)are included in this screening test. Performed By: #### 2 157-6 ####[facility] ([id number])[address] [place] [address]#### C34, SPE, 81486-4, 79264-3, 6969-0, 6968-2 ####[facility] ([id number])[address] [facility], [address] [address] POTASSIUMon 12-03-2023 Potassium [Moles/Vol] 3.6 mmol/L Normal 3.5-5.0 [facility] Comment on above: Performed By: #### 2 823-3, 21344-2 ####[facility] ([id number])[address] [place] [address] PROTEIN CREAT RATIOon 2023 RANDOM URINE PROTEIN 130 mg/L High <120 [facility] Comment on above: Performed By: #### 2 955-3, UPCR, UA ####[facility] ([id number])[address] [place] [address] U/PRO/DIRECTOR RADIO RATIO CALC 0.30 High <0.2 [facility] Comment on above: Result Comment: Neph rotic Syndrome is associated with ratios >3.5 Performed By: #### 2 955-3, UPCR, UA ####[facility] ([id number])[address] [place] [address] URINE CREATININE,RDM 43.64 mg/dL Normal [facility] Comment on above: Performed By: #### 2 955-3, UPCR, UA ####[facility] ([id number])[address] [place] [address] Potassiumon 12-03-2023 Potassium [Moles/Vol] 3.6 mmol/L 3.5 - 5.0 mmol/L [facility] Protein creat ratioon 2023 Creatinine (U) [Mass/Vol] 43.64 mg/dL [facility] Interpretation and review of laboratory results Abnormal [facility] Protein (U) [Mass/Vol] 130 mg/L High NINF - 120 mg/L [facility] Protein/Creatinine (U) [Ratio] 0.30 High [facility].2 [facility] Comment on above: Nephrotic Syndrome i s associated with ratios >3.5 Proteinase 3 AB PR3on 2023 Proteinase 3 Ab Qn (S) [facility] Proteinase 3 Ab Qn (S)on Proteinase 3 IgG Ab <0.2 Normal <1.0 [facility] Comment on above: Performed By: #### 2 157-6 ####[facility] ([id number])[address] [place] [address]#### C34, SPE, 04225-0, 18675-9, 6969-0, 6968-2 ####[facility] ([id number])[address], [address] [place] [id number] SERUM PROTEIN ELECTROPHORESI Son 12-03-2023 Albumin [Mass/Vol] 3.1 g/dL Low 3.4-5.3 [facility] Comment on above: Performed By: #### 2 157-6 ####[facility] ([id number])[address] [place] [id number]#### C34, SPE, 47650-2, 39018-4, 6969-0, 6968-2 ####[facility] ([id number])[address] [facility], [address] [place] [address] ALPHA 1 GLOBULIN 0.4 g/dL Normal 0.1-0.4 [facility] Comment on above: Performed By: #### 2 157-6 ####[facility] ([id number])[address] [place] [address]#### C34, SPE, 75348-4, 90761-8, 6969-0, 6968-2 ####[facility] ([id number])[address], [address] [place] [address] ALPHA 2 GLOBULIN 0.7 g/dL Normal 0.4-1.1 [facility] Comment on above: Performed By: #### 2 157-6 ####[facility] ([id number])[address] [place] [address]#### C34, SPE, 78944-2, 21883-6, 6969-0, 6968-2 ####[facility] ([id number])[address] [facility], [address] [address] BETA GLOBULIN 0.7 g/dL Normal 0.5-1.2 [facility] Comment on above: Performed By: #### 2 157-6 ####[facility] ([id number])[facility] [place] [address]#### C34, SPE, 72099-5, 02936-3, 6969-0, 6968-2 ####[facility] ([id number])[address] [place] [address], [address] [address] GAMMA GLOBULIN 0.6 g/dL Normal 0.5-1.6 [facility] Comment on above: Performed By: #### 2 157-6 ####[facility] ([id number])[address] [place] [address] [place], [place] [address]#### C34, SPE, 10243-9, 80044-5, 6969-0, 6968-2 ####[facility] ([id number])[address] [place] [address], [address] [address] PROT. ELECTROPHORESIS INTERP Unremarkable protein distribution, no monoclonal bands. Normal [facility] Comment on above: Performed By: #### 2 157-6 ####[facility] ([id number])[address] [place], [place] [address]#### C34, SPE, 97198-5, 28310-2, 6969-0, 6968-2 ####[facility] ([id number])[facility], [address] [address] Protein [Mass/Vol] 5.4 g/dL Low 6.0-8.0 [facility] Comment on above: Performed By: #### 2 157-6 ####[facility] ([id number])[address] [place] [address]#### C34, SPE, 26135-6, 46177-7, 6969-0, 6968-2 ####[facility] ([id number])[address] [facility], [address] [place] [address] Sodium, urine, randomon Sodium (U) [Moles/Vol] 43 mmol/L [facility] Sodium (U) [Moles/Vol] 53 mmol/L [facility] URINALYSISon 12-03-2023 Bilirubin Ql (U) Negative Normal NEG [facility] Comment on above: Performed By: #### 2 955-3, UPCR, UA ####[facility] ([id number])[address] [place] [address] BLOOD/HGB Negative Normal NEG [facility] Comment on above: Performed By: #### 2 955-3, UPCR, UA ####[facility] ([id number])[address] [place] [address] Color (U) YELLOW Normal YELLOW [facility] Comment on above: Performed By: #### 2 955-3, UPCR, UA ####[facility] ([id number])[address] [place] [address] Glucose Ql (U) Negative Normal NEG [facility] Comment on above: Performed By: #### 2 955-3, UPCR, UA ####[facility] ([id number])[address] [place] [address] Ketones Ql (U) Negative Normal NEG [facility] Comment on above: Performed By: #### 2 955-3, UPCR, UA ####[facility] ([id number])[address] [place] [address] Leukocyte esterase Test strip Ql (U) Negative Normal NEG [facility] Comment on above: Performed By: #### 2 955-3, UPCR, UA ####[facility] ([id number])[address] [place] [address] Nitrite Ql (U) Negative Normal NEG [facility] Comment on above: Performed By: #### 2 955-3, UPCR, UA ####[facility] ([id number])[address] [place] [address] pH (U) 6.0 [pH] Normal 5.0-8.5 [facility] Comment on above: Performed By: #### 2 955-3, UPCR, UA ####[facility] ([id number])[address] [place] [address] Protein Ql (U) Negative Normal NEG [facility] Comment on above: Performed By: #### 2 955-3, UPCR, UA ####[facility] ([id number])[address] [place] [address] Specific gravity (U) [Rel density] 1.010 Normal 1.003-1.035 [facility] Comment on above: Performed By: #### 2 955-3, UPCR, UA ####[facility] ([id number])[address] [place] [address] TURBIDITY CLEAR Normal CLEAR [facility] Comment on above: Performed By: #### 2 955-3, UPCR, UA ####[facility] ([id number])[address] [place] [address] Urobilinogen Qn (U) 0.2 {Ansley'U}/dL Normal <1.1 [facility] Comment on above: Performed By: #### 2 955-3, UPCR, UA ####[facility] ([id number])[address] [place] [address] URINE SODIUM,RANDOMon 2023 Sodium (U) [Moles/Vol] 43 mmol/L Normal [facility] Comment on above: Performed By: #### 2 955-3, UPCR, UA ####[facility] ([id number])[address] [place] [address] Urinalysison 12-03-2023 Bilirubin Ql (U) Negative Negative^Ne g ative [facility] Color (U) YELLOW YELLOW^YELLO W [facility] Glucose (U) [Mass/Vol] Negative Negative^Neg ative mg/dL [facility] Hemoglobin Auto test strip Ql (U) Negative Negative^Neg ative [facility] Ketones (U) [Mass/Vol] Negative Negative^Neg ative mg/dL [facility] Leukocyte esterase Auto test strip Ql (U) Negative Negative^Neg ative [facility] Nitrite Auto test strip Ql (U) Negative Negative^Neg ative [facility] pH (U) 6.0 [pH] 5.0 - 8.5 [facility] Protein (U) [Mass/Vol] Negative Negative^Neg ative mg/dL [facility] Specific gravity Refractometry automated (U) [Rel density] 1.010 1.003 - 1.035 [facility] Turbidity Ql (U) CLEAR CLEAR^CLEAR [facility] Urobilinogen Qn (U) 0.2 NINF [facility] Bilirubin Ql (U) Negative Negative^Ne g ative [facility] Color (U) YELLOW YELLOW^YELLO W [facility] Epithelial cells Auto (Urine sed) [#/Area] 4 [facility] Glucose (U) [Mass/Vol] Negative Negative^Neg ative mg/dL [facility] Hemoglobin Auto test strip Ql (U) Negative Negative^Neg ative [facility] Interpretation and review of laboratory results Abnormal [facility] Ketones (U) [Mass/Vol] Negative Negative^Neg ative mg/dL [facility] Leukocyte esterase Auto test strip Ql (U) SMALL Abnormal Negative^Neg ative [facility] Nitrite Auto test strip Ql (U) Negative Negative^Neg ative [facility] pH (U) 6.0 [pH] 5.0 - 8.5 [facility] Protein (U) [Mass/Vol] Negative Negative^Neg ative mg/dL [facility] RBC Auto (Urine sed) [#/Area] 0 [facility] Specific gravity Refractometry automated (U) [Rel density] 1.010 1.003 - 1.035 [facility] Turbidity Ql (U) CLEAR CLEAR^CLEAR [facility] Urobilinogen Qn (U) 0.2 NINF [facility] WBC Auto (Urine sed) [#/Area] [address] [facility] Urine Creatinine,randomon Creatinine (U) [Mass/Vol] 56.74 mg/dL [facility] Vancomycin [Mass/Vol]on VANCOMYCIN 34.7 ug/mL Normal 5.0-40.0 [facility] Comment on above: Result Comment: Peak 30-40 ug/mLTrough 5-20 ug/ml Performed By: #### C BC, DIFFA, CMP, 00801-3, 07214-9 ####[facility] ([id number])[address] [place] [address] Vancomycin, randomon 024 Vancomycin [Mass/Vol] 34.7 ug/mL 5.0 - 40.0 ug/mL [facility] Comment on above: Peak 30-40 ug/mL Trough 5-20 ug/ml aPTT Coag (PPP) [Time]on [facility] BLOOD CULTUREon 12-02-2023 Bacteria identified Aer cx Nom (Bld) SPECIMEN NOTES SUBOPTIMAL VOLUME OF BLOOD COLLECTED, RESULTS MAY BE AFFECTED. CULTURE RESULTS NO GROWTH 5 DAYS Normal [facility] Comment on above: Performed By: #### 1 7928-3 ####[facility] ([id number])[address] [facility], [address] [place] [address] Bacteria identified Aer cx Nom (Bld) SPECIMEN NOTES SUBOPTIMAL VOLUME OF BLOOD COLLECTED, RESULTS MAY BE AFFECTED. CULTURE RESULTS NO GROWTH 5 DAYS Normal [facility] Comment on above: Performed By: #### 1 7928-3 ####[facility] ([id number])[address] [facility], [address] [address] CBC AND AUTO DIFFon 12-02-19 24 ABSOLUTE BASOPHIL 0.0 X10E9/L Normal 0.0-0.2 [facility] Comment on above: Performed By: #### C BCA, 38723-5, CMP, 42886-1 ####[facility] ([id number])[address] [place] [address] ABSOLUTE NEUTROPHIL 6.3 X10E9/L Normal 1.5-6.6 [facility] Comment on above: Performed By: #### C BCA, 73210-1, CMP, 56334-7 ####[facility] ([id number])[address] [place] [address] Basophils/100 WBC (Bld) 0.3 % Normal [facility] Comment on above: Performed By: #### C BCA, 35072-9, CMP, 81154-1 ####[facility] ([id number])[address] [place] [address] Eosinophils (Bld) [#/Vol] 0.4 10*3/uL Normal 0.0-0.4 [facility] Comment on above: Performed By: #### C BCA, 97746-1, CMP, 56590-5 ####[facility] ([id number])[address] [place] [address] Eosinophils/100 WBC (Bld) 5.1 % Normal [facility] Comment on above: Performed By: #### C BCA, 03436-7, CMP, 54073-3 ####[facility] ([id number])[address] [place] [address] Erythrocyte distribution width (RBC) [Ratio] 14.2 % Normal 11.5-15.0 [facility] Comment on above: Performed By: #### C BCA, 18699-1, CMP, 66633-0 ####[facility] ([id number])[address] [facility] [place] [address] Hematocrit (Bld) [Volume fraction] 26.0 % Low 35-47 [facility] Comment on above: Performed By: #### C BCA, 95359-8, CMP, 58948-3 ####[facility] ([id number])[address] [facility] [place] [address] Hemoglobin (Bld) [Mass/Vol] 9.1 g/dL Low 11.7-15.5 [facility] Comment on above: Performed By: #### C BCA, 17753-3, CMP, 29890-7 ####[facility] ([id number])[address] [facility] [place] [address] Lymphocytes (Bld) [#/Vol] 0.5 10*3/uL Low 1.0-3.5 [facility] Comment on above: Performed By: #### Jamal BCA, 64655-7, CMP, 60921-6 ####[facility] ([id number])[address] [facility] [place] [address] Lymphocytes/100 WBC (Bld) 6.7 % Normal [facility] Comment on above: Performed By: #### C BCA, 23376-0, CMP, 59573-5 ####[facility] ([id number])[address] [facility] [place] [address] MCH (RBC) [Entitic mass] 31.6 pg Normal 27-34 [facility] Comment on above: Performed By: #### C BCA, 44571-7, CMP, 69284-2 ####[facility] ([id number])[address] [facility] [place] [address] MCHC (RBC) [Mass/Vol] 35.1 g/dL Normal 32-36 [facility] Comment on above: Performed By: #### C BCA, 68196-7, CMP, 84597-7 ####[facility] ([id number])[address] [facility] [place] [address] MCV (RBC) [Entitic vol] 90 fL Normal 80-100 [facility] Comment on above: Performed By: #### C BCA, 13564-4, CMP, 66768-1 ####[facility] ([id number])[address] [facility] [place] [address] Monocytes (Bld) [#/Vol] 0.6 10*3/uL Normal 0-0.9 [facility] Comment on above: Performed By: #### C BCA, 80047-2, CMP, 73950-3 ####[facility] ([id number])[address] [facility] [place] [address] Monocytes/100 WBC (Bld) 7.5 % Normal [facility] Comment on above: Performed By: #### C BCA, 31274-6, CMP, 18390-2 ####[facility] ([id number])[address] [facility] [place] [address] Neutrophils/100 WBC (Bld) 80.4 % Normal [facility] Comment on above: Performed By: #### C BCA, 01216-6, CMP, 84864-1 ####[facility] ([id number])[address] [facility] [address] Platelet mean volume (Bld) [Entitic vol] 6.7 fL Low 7-12 [facility] Comment on above: Performed By: #### C BCA, 89041-2, CMP, 06593-7 ####[facility] ([id number])[address] [facility] [address] Platelets (Bld) [#/Vol] 279 10*3/uL Normal 150-450 [facility] Comment on above: Performed By: #### C BCA, 65493-8, CMP, 70904-8 ####[facility] ([id number])[address] [facility] [address] RBC COUNT 2.89 X10E12/L Low 3.80-5.20 [facility] Comment on above: Performed By: #### C BCA, 85606-5, CMP, 34372-9 ####[facility] ([id number])[address] [place] [address] WBC (Bld) [#/Vol] 7.8 10*3/uL Normal 4.0-11.0 [facility] Comment on above: Performed By: #### C BCA, 90929-5, CMP, 29069-6 ####[facility] ([id number])[address] [place] [address] CBC auto differentialon - Basophils (Bld) [#/Vol] 0.0 10*3/uL [facility] Basophils/100 WBC (Bld) 0.3 % [facility] Eosinophils (Bld) [#/Vol] 0.4 10*3/uL [facility] Eosinophils/100 WBC (Bld) 5.1 % [facility] Erythrocyte distribution width (RBC) [Ratio] 14.2 % 11.5 - 15.0 % [facility] Hematocrit (Bld) [Volume fraction] 26.0 % Low 35 - 47 % [facility] Hemoglobin (Bld) [Mass/Vol] 9.1 g/dL Low 11.7 - 15.5 g/dL [facility] Interpretation and review of laboratory results Abnormal [facility] Lymphocytes (Bld) [#/Vol] 0.5 10*3/uL Low [facility] Lymphocytes/100 WBC (Bld) 6.7 % [facility] MCH (RBC) [Entitic mass] 31.6 pg 27 - 34 pg [facility] MCHC (RBC) [Mass/Vol] 35.1 g/dL 32 - 36 g/dL [facility] MCV (RBC) [Entitic vol] 90 fL 80 - 100 fL [facility] Monocytes (Bld) [#/Vol] 0.6 10*3/uL [facility] Monocytes/100 WBC (Bld) 7.5 % [facility] Neutrophils (Bld) [#/Vol] 6.3 10*3/uL [facility] Neutrophils/100 WBC (Bld) 80.4 % [facility] Platelet mean volume (Bld) [Entitic vol] 6.7 fL Low 7 - 12 fL [facility] Platelets (Bld) [#/Vol] 279 10*3/uL [facility] RBC (Bld) [#/Vol] 2.89 10*6/uL Low [facility] WBC corrected for nucl RBC Auto (Bld) [#/Vol] 7.8 [facility] COMPREHENSIVE METABOLIC PANE [place] 12-02-2023 Albumin [Mass/Vol] 3.8 g/dL Normal 3.2-5.3 [facility] Comment on above: Performed By: #### C BCA, 53537-6, CMP, 56512-3 ####[facility] ([id number])[address] [place] [address] ALP [Catalytic activity/Vol] 69 U/L Normal 39-130 [facility] Comment on above: Performed By: #### C BCA, 51160-0, CMP, 64029-9 ####[facility] ([id number])[address] [place] [address] ALT [Catalytic activity/Vol] 12 U/L Normal 0-31 [facility] Comment on above: Performed By: #### C BCA, 40036-8, CMP, 97114-7 ####[facility] ([id number])[address] [place] [address] Anion gap [Moles/Vol] 9 mmol/L Normal 5-15 [facility] Comment on above: Performed By: #### C BCA, 23762-5, CMP, 02765-4 ####[facility] ([id number])[address] [place] [address] AST [Catalytic activity/Vol] 24 U/L Normal 0-41 [facility] Comment on above: Performed By: #### C BCA, 69368-6, CMP, 98884-2 ####[facility] ([id number])[address] [place] [address] Bilirubin [Mass/Vol] 0.6 mg/dL Normal 0.3-1.2 [facility] Comment on above: Performed By: #### C BCA, 42497-1, CMP, 39470-3 ####[facility] ([id number])[address] [place] [address] Calcium [Mass/Vol] 9.8 mg/dL Normal 8.5-10.5 [facility] Comment on above: Performed By: #### C BCA, 46632-6, CMP, 39174-9 ####[facility] ([id number])[address] [facility] [address] Chloride [Moles/Vol] 99 mmol/L Normal 98-109 [facility] Comment on above: Performed By: #### C BCA, 34756-5, CMP, 50339-3 ####[facility] ([id number])[address] [facility] [place] [address] CO2 [Moles/Vol] 25 mmol/L Normal 22-32 [facility] Comment on above: Performed By: #### C BCA, 18719-5, CMP, 42917-8 ####[facility] ([id number])[address] [facility] [place] [address] Creatinine [Mass/Vol] 2.52 mg/dL High 0.40-1.00 [facility] Comment on above: Result Comment: METH OD TRACEABLE TO IDMS STANDARD Performed By: #### C BCA, 53333-5, CMP, 48969-1 ####[facility] ([id number])[address] [facility] [address] GFR/1.73 sq M.predicted among non-blacks MDRD (S/P/Bld) [Vol rate/Area] 22 mL/min/{1.73_m2} Low >59 [facility] Comment on above: Result Comment: Repo rted eGFR is based on theCKD-EPI 2020 equation that doesnot use a race coefficient. Performed By: #### C BCA, 71649-1, CMP, 34299-0 ####[facility] ([id number])[address] [place] [address] Glucose [Mass/Vol] 106 mg/dL High 65-99 [facility] Comment on above: Performed By: #### C BCA, 83240-3, CMP, 18374-8 ####[facility] ([id number])[address] [place] [address] Potassium [Moles/Vol] 3.2 mmol/L Low 3.5-5.0 [facility] Comment on above: Performed By: #### C BCA, 54811-8, CMP, 42212-5 ####[facility] ([id number])[address] [place] [address] Protein [Mass/Vol] 6.4 g/dL Normal 6.0-8.0 [facility] Comment on above: Performed By: #### C BCA, 56590-6, CMP, 72022-5 ####[facility] ([id number])[address] [place] [address] Sodium [Moles/Vol] 133 mmol/L Low 134-146 [facility] Comment on above: Performed By: #### C BCA, 59451-2, CMP, 77379-1 ####[facility] ([id number])[address] [place] [address] Urea nitrogen [Mass/Vol] 27 mg/dL High 5-23 [facility] Comment on above: Performed By: #### C BCA, 76273-7, CMP, 78463-5 ####[facility] ([id number])[address] [place] [address] Comprehensive metabolic pane rome 12-02-2023 Albumin [Mass/Vol] 3.8 g/dL 3.2 - 5.3 g/dL [facility] ALP [Catalytic activity/Vol] 69 U/L 39 - 130 U/L [facility] ALT No additional P-5'-P [Catalytic activity/Vol] 12 U/L 0 - 31 U/L [facility] Anion gap [Moles/Vol] 9 mmol/L 5 - 15 mmol/L [facility] AST [Catalytic activity/Vol] 24 U/L 0 - 41 U/L [facility] Bilirubin [Mass/Vol] 0.6 mg/dL 0.3 - 1 .2 mg/dL [facility] Calcium [Mass/Vol] 9.8 mg/dL 8.5 - 10. 5 mg/dL [facility] Chloride [Moles/Vol] 99 mmol/L 98 - 10 9 mmol/L [facility] CO2 [Moles/Vol] 25 mmol/L 22 - 32 mmol/L [facility] Creatinine [Mass/Vol] 2.52 mg/dL High 0.40 - 1.00 mg/dL [facility] Comment on above: METHOD TRACEABLE TO [facility] STANDARD eGFR (CKD-EPI)non-race dependent 22 Low - PINF [facility] Comment on above: Reported eGFR is based on the CKD-EPI 2020 equation that does not use a race coefficient. Glucose [Mass/Vol] 106 mg/dL High 65 - 99 mg/dL [facility] Interpretation and review of laboratory results Abnormal [facility] Potassium [Moles/Vol] 3.2 mmol/L Low 3.5 - 5.0 mmol/L [facility] Protein [Mass/Vol] 6.4 g/dL 6.0 - 8.0 g/dL [facility] Sodium [Moles/Vol] 133 mmol/L Low 134 - 146 mmol/L [facility] Urea nitrogen [Mass/Vol] 27 mg/dL High 5 - 23 mg/dL [facility] Creatinine (U) [Mass/Vol]on 12-02-2023 URINE CREATININE,RDM 56.74 mg/dL Normal [facility] Comment on above: Performed By: #### U A, 2161-8, 2955-3 ####[facility] ([id number])[address] [place] [address] Lactate (P tayla) [Moles/Vol]o n 12-02-2023 [facility] LACTATE W/REFLEX 0.7 mmol/L Normal 0.4-2.0 [facility] Comment on above: Result Comment: Resu lt did not trigger repeat Lactate,re-order if needed. Performed By: #### C BCA, 03017-0, CMP, 21860-8 ####[facility] ([id number])[address] [place] [address] Lactate w/ Reflexon 12-02-19 24 Lactate (P tayla) [Moles/Vol] 0.7 mmol/L 0.4 - 2.0 mmol/L [facility] Comment on above: Result did not trigger repeat Lactate, re-order if needed. URINALYSISon 12-02-2023 Bilirubin Ql (U) Negative Normal NEG [facility] Comment on above: Performed By: #### U A, 8, 5-3 ####[facility] ([id number])[address] [place] [address] BLOOD/HGB Negative Normal NEG [facility] Comment on above: Performed By: #### U A, 2160-09, 2954-3 ####[facility] ([id number])[address] [place] [address] Color (U) YELLOW Normal YELLOW [facility] Comment on above: Performed By: #### U A, 2160-09, 2954-3 ####[facility] ([id number])[address] [place] [address] Glucose Ql (U) Negative Normal NEG [facility] Comment on above: Performed By: #### U A, 8, 2954-3 ####[facility] ([id number])[address] [place] [address] Ketones Ql (U) Negative Normal NEG [facility] Comment on above: Performed By: #### U A, 8, 295-3 ####[facility] ([id number])[address] [place] [address] Leukocyte esterase Test strip Ql (U) SMALL Abnormal NEG [facility] Comment on above: Performed By: #### U A, 8, 2954-3 ####[facility] ([id number])[address] [facility] [place] [address] Nitrite Ql (U) Negative Normal NEG [facility] Comment on above: Performed By: #### U Yumi, 2160-09, 3 ####[facility] ([id number])[address] [facility] [place] [address] pH (U) 6.0 [pH] Normal 5.0-8.5 [facility] Comment on above: Performed By: #### U Yumi, 2160-09, 3 ####[facility] ([id number])[address] [place] [address] Protein Ql (U) Negative Normal NEG [facility] Comment on above: Performed By: #### Karolyn Eason, 2160-09, 2954-04 ####[facility] ([id number])[address] [place] [address] R.B.CELLS 0 /hpf Normal 0-5 [facility] Comment on above: Performed By: #### Karolyn Eason, 2160-09, 3 ####[facility] ([id number])[address] [place] [address] Specific gravity (U) [Rel density] 1.010 Normal 1.003-1.035 [facility] Comment on above: Performed By: #### U Yumi, 2160-09, 3 ####[facility] ([id number])5[address] [place] [address] SQUAMOUS EPITHELIUM 4 /hpf Normal 0-5 [facility] Comment on above: Performed By: #### U Yumi, 2160-09, 2954-3 ####[facility] ([id number])5[address] [place] [address] TURBIDITY CLEAR Normal CLEAR [facility] Comment on above: Performed By: #### U A, 2160-09, 2954-3 ####[facility] ([id number])[address] [facility] [place] [address] Urobilinogen Qn (U) 0.2 {[place]'U}/dL Normal <1.1 [facility] Comment on above: Performed By: #### U Yumi, 216-8, 2955-3 ####[facility] ([id number])5[address] [facility] [place] [address] W.B.CELLS 7 /hpf High 0-5 [facility] Comment on above: Performed By: #### Karolyn Eason, 8, 2955-3 ####[facility] ([id number])[address] [place] [address] URINE CULTUREon 12-02-2023 Bacteria identified Cx Nom (U) CULTURE RESULTS NO GROWTH AT <1000 CFU/mL Normal [facility] Comment on above: Performed By: #### 6 30-4 ####[facility] ([id number])[address] [facility] [address] [address] URINE SODIUM,RANDOMon 2023 Sodium (U) [Moles/Vol] 53 mmol/L Normal [facility] Comment on above: Performed By: #### Karolyn Eason, 8, 2955-3 ####[facility] ([id number])5[address] [place] [address] aPTT Coag (PPP) [Time]on aPTT Coag (Bld) [Time] 35 s Normal 26-37 [facility] Comment on above: Performed By: #### C BCA, 28802-8, CMP, 91380-8 ####[facility] ([id number])[address] [place] [address] BASIC METABOLIC PANLon 11-29 Anion gap [Moles/Vol] 8 mmol/L Normal 5-15 [facility] Comment on above: Performed By: #### C BCA, BMP ####[facility] ([id number])[address] [place] [address] Calcium [Mass/Vol] 9.6 mg/dL Normal 8.5-10.5 [facility] Comment on above: Performed By: #### C BCA, BMP ####[facility] ([id number])5200 [facility] [place] [address] Chloride [Moles/Vol] 105 mmol/L Normal 98-109 [facility] Comment on above: Performed By: #### C BCA, BMP ####[facility] ([id number])5[address] [facility] [place] [address] CO2 [Moles/Vol] 29 mmol/L Normal 22-32 [facility] Comment on above: Performed By: #### C BCA, BMP ####[facility] ([id number])5200 [facility] [place] [address] Creatinine [Mass/Vol] 0.62 mg/dL Normal 0.40-1.00 [facility] Comment on above: Result Comment: METH OD TRACEABLE TO IDMS STANDARD Performed By: #### C BCA, BMP ####[facility] ([id number])[address] [place] [address] eGFR (CKD-EPI) NON-RACE DEPENDENT >90 Normal >59 [facility] Comment on above: Result Comment: Repo rted eGFR is based on theCKD-EPI 2020 equation that doesnot use a race coefficient. Performed By: #### C BCA, BMP ####[facility] ([id number])5200 [facility] [place] [address] Glucose [Mass/Vol] 84 mg/dL Normal 65-99 [facility] Comment on above: Performed By: #### C BCA, BMP ####[facility] ([id number])5[address] [facility] [place] [address] Potassium [Moles/Vol] 3.3 mmol/L Low 3.5-5.0 [facility] Comment on above: Performed By: #### C BCA, BMP ####[facility] ([id number])5[address] [facility] [place] [address] Sodium [Moles/Vol] 142 mmol/L Normal 134-146 [facility] Comment on above: Performed By: #### C BCA, BMP ####[facility] ([id number])[address] [place] [address] Urea nitrogen [Mass/Vol] 9 mg/dL Normal 5-23 [facility] Comment on above: Performed By: #### C BCA, BMP ####[facility] ([id number])[address] [place] [address] CBC AND AUTO DIFFon 11-30-19 24 ABSOLUTE BASOPHIL 0.1 X10E9/L Normal 0.0-0.2 [facility] Comment on above: Performed By: #### C BCA, BMP ####[facility] ([id number])[address] [place] [address] ABSOLUTE NEUTROPHIL 4.2 X10E9/L Normal 1.5-6.6 [facility] Comment on above: Performed By: #### C BCA, BMP ####[facility] ([id number])[address] [place] [address] Basophils/100 WBC (Bld) 0.8 % Normal [facility] Comment on above: Performed By: #### C BCA, BMP ####[facility] ([id number])[address] [place] [address] Eosinophils (Bld) [#/Vol] 0.4 10*3/uL Normal 0.0-0.4 [facility] Comment on above: Performed By: #### C BCA, BMP ####[facility] ([id number])[address] [place] [address] Eosinophils/100 WBC (Bld) 6.4 % Normal [facility] Comment on above: Performed By: #### C BCA, BMP ####[facility] ([id number])[address] [place] [address] Erythrocyte distribution width (RBC) [Ratio] 13.9 % Normal 11.5-15.0 [facility] Comment on above: Performed By: #### C BCA, BMP ####[facility] ([id number])[address] [facility] [place] [address] Hematocrit (Bld) [Volume fraction] 25.2 % Low 35-47 [facility] Comment on above: Performed By: #### C BCA, BMP ####[facility] ([id number])5200 [facility] [place] [address] Hemoglobin (Bld) [Mass/Vol] 8.8 g/dL Low 11.7-15.5 [facility] Comment on above: Performed By: #### C BCA, BMP ####[facility] ([id number])[address] [place] [address] Lymphocytes (Bld) [#/Vol] 1.2 10*3/uL Normal 1.0-3.5 [facility] Comment on above: Performed By: #### C BCA, BMP ####[facility] ([id number])[address] [place] [address] Lymphocytes/100 WBC (Bld) 19.2 % Normal [facility] Comment on above: Performed By: #### C BCA, BMP ####[facility] ([id number])[address] [place] [address] MCH (RBC) [Entitic mass] 31.6 pg Normal 27-34 [facility] Comment on above: Performed By: #### C BCA, BMP ####[facility] ([id number])[address] [place] [address] MCHC (RBC) [Mass/Vol] 35.0 g/dL Normal 32-36 [facility] Comment on above: Performed By: #### C BCA, BMP ####[facility] ([id number])[address] [facility] [place] [address] MCV (RBC) [Entitic vol] 90 fL Normal 80-100 [facility] Comment on above: Performed By: #### C BCA, BMP ####[facility] ([id number])5[address] [place] [address] Monocytes (Bld) [#/Vol] 0.5 10*3/uL Normal 0-0.9 [facility] Comment on above: Performed By: #### C BCA, BMP ####[facility] ([id number])[address] [place] [address] Monocytes/100 WBC (Bld) 8.4 % Normal [facility] Comment on above: Performed By: #### C BCA, BMP ####[facility] ([id number])5[address] [facility] [address] Neutrophils/100 WBC (Bld) 65.2 % Normal [facility] Comment on above: Performed By: #### C BCA, BMP ####[facility] ([id number])[address] [place] [address] Platelet mean volume (Bld) [Entitic vol] 6.8 fL Low 7-12 [facility] Comment on above: Performed By: #### C BCA, BMP ####[facility] ([id number])5[address] [facility] [place] [address] Platelets (Bld) [#/Vol] 294 10*3/uL Normal 150-450 [facility] Comment on above: Performed By: #### C BCA, BMP ####[facility] ([id number])[address] [facility] [place] [address] RBC COUNT 2.80 X10E12/L Low 3.80-5.20 [facility] Comment on above: Performed By: #### C BCA, BMP ####[facility] ([id number])5[address] [facility] [address] WBC (Bld) [#/Vol] 6.5 10*3/uL Normal 4.0-11.0 [facility] Comment on above: Performed By: #### C BCA, BMP ####[facility] ([id number])[address] [place] [address] CK [Catalytic activity/Vol]o n 11-28-2023 CPK 45 U/L Normal 24-170 [facility] Comment on above: Performed By: #### 2 157-6 ####[facility] ([id number])[address] [place] [address] AFB CULTURE(CONCENTRATED)on 11-27-2023 Mycobacterium sp identified Org specific cx Nom (Unsp spec) SPECIMEN NOTES SPECIMEN A AFB SMEAR NO ACID FAST BACILLI (CONCENTRATED SMEAR) 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 Normal [facility] Comment on above: Performed By: #### 5 43-9 ####[facility] ([id number])[address] [address] ANAEROBE CULTUREon 4 Bacteria identified Anaer cx Nom (Unsp spec) SPECIMEN NOTES SPECIMEN A CULTURE RESULTS NO GROWTH 5 DAYS Normal [facility] Comment on above: Performed By: #### 6 35-3 ####[facility] ([id number])[address], [address] [address] ASPIRATE CULTUREon 4 Bacteria identified Aer cx Nom (Asp) SPECIMEN NOTES SPECIMEN A GRAM STAIN >25 WHITE BLOOD CELLS/LPF 0 SQUAMOUS EPITHELIAL CELLS/LPF NO ORGANISMS SEEN CULTURE 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 Normal [facility] Comment on above: Performed By: #### 5 97-5 ####[facility] ([id number])[address], [address] [address] BASIC METABOLIC PANLon 11-26 Anion gap [Moles/Vol] 5 mmol/L Normal 5-15 [facility] Comment on above: Performed By: #### C NICHOL BROWNA, BMP ####[facility] ([id number])[address] [place] [address] Calcium [Mass/Vol] 9.5 mg/dL Normal 8.5-10.5 [facility] Comment on above: Performed By: #### C BC DIFFA, BMP ####[facility] ([id number])5[address] [facility] [place] [address] Chloride [Moles/Vol] 105 mmol/L Normal 98-109 [facility] Comment on above: Performed By: #### C SHAY BROWN BMP ####[facility] ([id number])[address] [facility] [address] CO2 [Moles/Vol] 30 mmol/L Normal 22-32 [facility] Comment on above: Performed By: #### SHAY LAZAR BMP ####[facility] ([id number])[address] [place] [address] Creatinine [Mass/Vol] 0.71 mg/dL Normal 0.40-1.00 [facility] Comment on above: Result Comment: METH OD TRACEABLE TO IDMS STANDARD Performed By: #### C SHAY BROWN BMP ####[facility] ([id number])[address] [place] [address] eGFR (CKD-EPI) NON-RACE DEPENDENT >90 Normal >59 [facility] Comment on above: Result Comment: Repo rted eGFR is based on theCKD-EPI 2020 equation that doesnot use a race coefficient. Performed By: #### SHAY LAZAR BMP ####[facility] ([id number])5[address] [facility] [place] [address] Glucose [Mass/Vol] 101 mg/dL High 65-99 [facility] Comment on above: Performed By: #### SHAY LAZAR BMP ####[facility] ([id number])5[address] [facility] [place] [address] Potassium [Moles/Vol] 3.8 mmol/L Normal 3.5-5.0 [facility] Comment on above: Performed By: #### SHAY LAZAR, BMP ####[facility] ([id number])[address] [facility] [place] [address] Sodium [Moles/Vol] 140 mmol/L Normal 134-146 [facility] Comment on above: Performed By: #### C SHAY BROWN BMP ####[facility] ([id number])[address] [place] [address] Urea nitrogen [Mass/Vol] 16 mg/dL Normal 5-23 [facility] Comment on above: Performed By: #### C BC, DIFFA, BMP ####[facility] ([id number])[address] [place] [address] COMPLETE BLOOD COUNTon 11-26 Erythrocyte distribution width (RBC) [Ratio] 13.6 % Normal 11.5-15.0 [facility] Comment on above: Performed By: #### C BC, DIFFA, BMP ####[facility] ([id number])[address] [place] [address] Hematocrit (Bld) [Volume fraction] 24.9 % Low 35-47 [facility] Comment on above: Performed By: #### C BC, DIFFA, BMP ####[facility] ([id number])[address] [place] [address] Hemoglobin (Bld) [Mass/Vol] 8.7 g/dL Low 11.7-15.5 [facility] Comment on above: Performed By: #### C BC, DIFFA, BMP ####[facility] ([id number])[address] [place] [address] MCH (RBC) [Entitic mass] 31.5 pg Normal 27-34 [facility] Comment on above: Performed By: #### C BC, DIFFA, BMP ####[facility] ([id number])[address] [place] [address] MCHC (RBC) [Mass/Vol] 34.7 g/dL Normal 32-36 [facility] Comment on above: Performed By: #### C BC, DIFFA, BMP ####[facility] ([id number])[address] [place] [address] MCV (RBC) [Entitic vol] 91 fL Normal 80-100 [facility] Comment on above: Performed By: #### C BC, DIFFA, BMP ####[facility] ([id number])[address] [place] [address] Platelet mean volume (Bld) [Entitic vol] 6.6 fL Low 7-12 [facility] Comment on above: Performed By: #### C BC, DIFFA, BMP ####[facility] ([id number])[address] [place] [address] Platelets (Bld) [#/Vol] 267 10*3/uL Normal 150-450 [facility] Comment on above: Performed By: #### C BC, DIFFA, BMP ####[facility] ([id number])[address] [place] [address] RBC COUNT 2.75 X10E12/L Low 3.80-5.20 [facility] Comment on above: Performed By: #### C BC, DIFFA, BMP ####[facility] ([id number])[address] [place] [address] WBC (Bld) [#/Vol] 6.2 10*3/uL Normal 4.0-11.0 [facility] Comment on above: Performed By: #### C BC, DIFFA, BMP ####[facility] ([id number])[address] [place] [address] DIFFERENTIALon 11-27-2023 ABSOLUTE BASOPHIL 0.0 X10E9/L Normal 0.0-0.2 [facility] Comment on above: Performed By: #### C BC, DIFFA, BMP ####[facility] ([id number])[address] [place] [address] ABSOLUTE NEUTROPHIL 3.9 X10E9/L Normal 1.5-6.6 [facility] Comment on above: Performed By: #### C BC, DIFFA, BMP ####[facility] ([id number])[address] [place] [address] Basophils/100 WBC (Bld) 0.5 % Normal [facility] Comment on above: Performed By: #### C BC, DIFFA, BMP ####[facility] ([id number])[address] [place] [address] Eosinophils (Bld) [#/Vol] 0.6 10*3/uL High 0.0-0.4 [facility] Comment on above: Performed By: #### C BC, DIFFA, BMP ####[facility] ([id number])[address] [place] [address] Eosinophils/100 WBC (Bld) 9.2 % Normal [facility] Comment on above: Performed By: #### C BC, DIFFA, BMP ####[facility] ([id number])[address] [place] [address] Lymphocytes (Bld) [#/Vol] 1.1 10*3/uL Normal 1.0-3.5 [facility] Comment on above: Performed By: #### C BC, DIFFA, BMP ####[facility] ([id number])[address] [place] [address] Lymphocytes/100 WBC (Bld) 17.3 % Normal [facility] Comment on above: Performed By: #### C BC, DIFFA, BMP ####[facility] ([id number])[address] [facility] [place] [address] Monocytes (Bld) [#/Vol] 0.6 10*3/uL Normal 0-0.9 [facility] Comment on above: Performed By: #### C BC, DIFFA, BMP ####[facility] ([id number])[address] [place] [facility] [address] Monocytes/100 WBC (Bld) 9.7 % Normal [facility] Comment on above: Performed By: #### C BC, DIFFA, BMP ####[facility] ([id number])[address] [facility] [facility] [place] [address] Neutrophils/100 WBC (Bld) 63.3 % Normal [facility] Comment on above: Performed By: #### C BC, DIFFA, BMP ####[facility] ([id number])[address] [place] [address] FUNGAL CULTUREon 11-27-2023 Fungus identified Cx Nom (Unsp spec) SPECIMEN NOTES SPECIMEN A FUNGAL SMEAR NO FUNGAL ELEMENTS SEEN ON DIRECT SMEAR CULTURE RESULTS NO FUNGUS ISOLATED AFTER 4 WEEKS Normal [facility] Comment on above: Performed By: #### 5 80-1 ####[facility] ([id number])[address] [facility], [address] [place] [address] MRSA PCR NASALon 11-27-2023 MRSA DNA KYLE+probe Ql (Unsp spec) Negative Normal NEG [facility] Comment on above: Performed By: #### 3 5492-8 ####[facility] ([id number])[address] [facility], [address] [place] [address] SEND OUT TESTon 11-27-2023 SENT TO [facility] Normal [facility] Comment on above: Result Comment: [id number] SPECIMEN LJ SLANT FROM LEFT BREAST ASPIRATE SPECIMEN A Normal [facility] TEST NAME: [facility] APPR O SUSCEPTIBILITY Normal [facility] TEST RESULT See separate report. View in OnBase or in EPIC. Normal [facility] BASIC METABOLIC PANLon 11-25 Anion gap [Moles/Vol] 8 mmol/L Normal 5-15 [facility] Comment on above: Performed By: #### 3 2132-03, 1987-07, 85868-7, BMP ####[facility] ([id number])[address] [place] [address]#### 43064-1 ####[facility] ([id number])[address] [facility], [address] [place] [address] Calcium [Mass/Vol] 9.5 mg/dL Normal 8.5-10.5 [facility] Comment on above: Performed By: #### 3 2132-03, 1987-07, 16303-0, BMP ####[facility] ([id number])[address] [place] [address]#### 32345-6 ####[facility] ([id number])2[address] [facility], [address] [address] Chloride [Moles/Vol] 102 mmol/L Normal 98-109 [facility] Comment on above: Performed By: #### 3 2132-03, 1987-07, 43198-5, BMP ####[facility] ([id number])[address] [place] [address]#### 04391-2 ####[facility] ([id number])2129 [facility], [address] [address] CO2 [Moles/Vol] 29 mmol/L Normal 22-32 [facility] Comment on above: Performed By: #### 3 2132-03, 1987-07, 55135-9, BMP ####[facility] ([id number])[address] [place] [address]#### 10655-6 ####[facility] ([id number])[address] [place] [address], [address] [address] Creatinine [Mass/Vol] 0.81 mg/dL Normal 0.40-1.00 [facility] Comment on above: Result Comment: METH OD TRACEABLE TO IDMS STANDARD Performed By: #### 3 2132-03, 1987-07, 05828-8, BMP ####[facility] ([id number])[address] [place] [address]#### 12483-0 ####[facility] ([id number])Formerly [facility], [address] [address] GFR/1.73 sq M.predicted among non-blacks MDRD (S/P/Bld) [Vol rate/Area] 87 mL/min/{1.73_m2} Normal >59 [facility] Comment on above: Result Comment: Repo rted eGFR is based on theD-EPI 2020 equation that doesnot use a race coefficient. Performed By: #### 3 2132-03, 1987-07, 98654-4, BMP ####[facility] ([id number])[address] [place] [address]#### 88620-5 ####[facility] ([id number])[address], [address] [address] Glucose [Mass/Vol] 97 mg/dL Normal 65-99 [facility] Comment on above: Performed By: #### 3 2132-03, 1987-07, 39126-0, BMP ####[facility] ([id number])[address] [place] [address]#### 01860-0 ####[facility] ([id number])[address], [address] [address] Potassium [Moles/Vol] 3.0 mmol/L Low 3.5-5.0 [facility] Comment on above: Performed By: #### 3 2132-03, 1987-07, 69738-9, BMP ####[facility] ([id number])[address] [place] [address]#### 09154-1 ####[facility] ([id number])[address], [address], [place] [address] Sodium [Moles/Vol] 139 mmol/L Normal 134-146 [facility] Comment on above: Performed By: #### 3 2132-03, 1987-07, 51399-4, BMP ####[facility] ([id number])[address] [place] [address]#### 10539-1 ####[facility] ([id number])[address], [address] [address] Urea nitrogen [Mass/Vol] 19 mg/dL Normal 5-23 [facility] Comment on above: Performed By: #### 3 2132-03, 1987-07, 47923-3, BMP ####[facility] ([id number])[address] [place] [address]#### 46503-4 ####[facility] ([id number])[address], [address] [place] [address] BLOOD CULTUREon 11-26-2023 Bacteria identified Aer cx Nom (Bld) CULTURE RESULTS NO GROWTH 5 DAYS Normal [facility] CRP [Mass/Vol]on 11-26-2023 C REACTIVE PROTEIN 2.6 mg/dL High 0.000-0.744 [facility] Comment on above: Performed By: #### 3 2132-03, 1987-07, , BMP ####[facility] ([id number])[address] [place] [address]#### 46972-8 ####[facility] ([id number])[address], [address] [place] [address] ESR Photometric method (Bld) [Velocity]on 11-26-2023 ESR, ERYTHROCYTE SEDIMENTATION RATE 30 mm/h Normal 0-30 [facility] Comment on above: Performed By: #### 3 2132-03, 1987-07, , BMP ####[facility] ([id number])[address] [place] [address]#### 74985-1 ####[facility] ([id number])[address], [address] [place] [address] Lactate (P tayla) [Moles/Vol]o n 11-26-2023 LACTATE W/REFLEX 0.7 mmol/L Normal 0.4-2.0 [facility] Comment on above: Result Comment: Resu lt did not trigger repeat Lactate,re-order if needed. Performed By: #### 3 2132-03, 1987-07, , BMP ####[facility] ([id number])[address] [place] [address]#### 11181-1 ####[facility] ([id number])[address] [address] Procalcitonin IA [Mass/Vol]o n 11-26-2023 PROCALCITONIN <0.05 Normal <0.05 [facility] Comment on above: Result Comment: NOTE <0.50 ng/mL - Low risk of severe sepsis and/or septic shock.<2.00 ng/mL - Recommend retesting within 6-24 hours.>2.00 ng/mL - High risk of sepsis and/or septic shock. Performed By: #### 3 2132-03, 1987-07, 30661-6, BMP ####[facility] ([id number])[facility] [place] [address]#### [id number] ####[facility] ([id number])[address] [address] ASPIRATE CULTUREon 4 Bacteria identified Aer cx Nom (Asp) GRAM STAIN >25 WHITE BLOOD CELLS/LPF 0 SQUAMOUS EPITHELIAL CELLS/LPF NO ORGANISMS SEEN CULTURE RESULTS FEW Mycobacterium Abscessus REPORT UPDATED GROWTH OBSERVED AT 3RD DAY FOR SUSCEPTIBILITY, SEE PREVIOUS REPORT. Normal [facility] Comment on above: Performed By: #### 5 97-5 ####[facility] ([id number])[address] [address] BASIC METABOLIC PANLon 10-28 Anion gap [Moles/Vol] 8 mmol/L Normal 5-15 [facility] Comment on above: Performed By: #### B MP, CBC ####[facility] ([id number])[facility] [place] [address]#### [id number] ####[facility] ([id number])[address] [address] Calcium [Mass/Vol] 8.5 mg/dL Normal 8.5-10.5 [facility] Comment on above: Performed By: #### B MP, CBC ####[facility] ([id number])[address] [place] [address]#### [id number] ####[facility] ([id number])[address] [address] Chloride [Moles/Vol] 105 mmol/L Normal 98-109 [facility] Comment on above: Performed By: #### B MP, CBC ####[facility] ([id number])[address] [place] [address]#### [id number] ####[facility] ([id number])[address] [facility] [address] [address] CO2 [Moles/Vol] 27 mmol/L Normal 22-32 [facility] Comment on above: Performed By: #### B MP, CBC ####[facility] ([id number])[address] [place] [address]#### [id number] ####[facility] ([id number])[address] [address] [address] Creatinine [Mass/Vol] 0.91 mg/dL Normal 0.40-1.00 [facility] Comment on above: Result Comment: METH OD TRACEABLE TO IDMS STANDARD Performed By: #### B MP, CBC ####[facility] ([id number])[address] [place] [address]#### [id number] ####[facility] ([id number])[address] [address] GFR/1.73 sq M.predicted among non-blacks MDRD (S/P/Bld) [Vol rate/Area] 75 mL/min/{1.73_m2} Normal >59 [facility] Comment on above: Result Comment: Repo rted eGFR is based on theCKD-EPI 2020 equation that doesnot use a race coefficient. Performed By: #### B MP, CBC ####[facility] ([id number])[address] [place] [address]#### [id number] ####[facility] LAB ([id number])[address] [address] Glucose [Mass/Vol] 128 mg/dL High 65-99 [facility] Comment on above: Performed By: #### B MP, CBC ####[facility] ([id number])[address] [place] [address]#### 6793-4 ####[facility] ([id number])[address], [address] [address] Potassium [Moles/Vol] 3.2 mmol/L Low 3.5-5.0 [facility] Comment on above: Performed By: #### B MP, CBC ####[facility] ([id number])[address] [place] [address]#### 6793-4 ####[facility] ([id number])[address] [address] [address] Sodium [Moles/Vol] 140 mmol/L Normal 134-146 [facility] Comment on above: Performed By: #### B MP, CBC ####[facility] ([id number])[address] [place] [address]#### 6793-4 ####[facility] ([id number])[address] [address], [place] [address] Urea nitrogen [Mass/Vol] 22 mg/dL Normal 5-23 [facility] Comment on above: Performed By: #### B MP, CBC ####[facility] ([id number])[address] [place] [address]#### 6793-4 ####[facility] ([id number])[address] [address] [address] COMPLETE BLOOD COUNTon 10-28 Erythrocyte distribution width (RBC) [Ratio] 15.0 % Normal 11.5-15.0 [facility] Comment on above: Performed By: #### B MP, CBC ####[facility] ([id number])[address] [place] [address]#### [id number] ####[facility] ([id number])[address] [address] [address] Hematocrit (Bld) [Volume fraction] 21.9 % Low 35-47 [facility] Comment on above: Performed By: #### B MP, CBC ####[facility] ([id number])[address] [place] [address]#### 6793-4 ####[facility] ([id number])[address] [address] [address] Hemoglobin (Bld) [Mass/Vol] 7.7 g/dL Low 11.7-15.5 [facility] Comment on above: Performed By: #### B MP, CBC ####[facility] ([id number])[address] [place] [address]#### 6793-4 ####[facility] ([id number])[address] [address] [place] [address] MCH (RBC) [Entitic mass] 34.2 pg High 27-34 [facility] Comment on above: Performed By: #### B MP, CBC ####[facility] ([id number])[address] [place] [address]#### [phone] ####[facility] ([id number])[address] [address] [address] MCHC (RBC) [Mass/Vol] 35.0 g/dL Normal 32-36 [facility] Comment on above: Performed By: #### B MP, CBC ####[facility] ([id number])[address] [place] [address]#### 6793-4 ####[facility] ([id number])[address], [address] [address] MCV (RBC) [Entitic vol] 98 fL Normal 80-100 [facility] Comment on above: Performed By: #### B MP, CBC ####[facility] ([id number])[address] [place] [address]#### [id number] ####[facility] ([id number])[address], [address] [place] [address] Platelet mean volume (Bld) [Entitic vol] 7.5 fL Normal 7-12 [facility] Comment on above: Performed By: #### B MP, CBC ####[facility] ([id number])[address] [place] [address]#### [id number] ####[facility] ([id number])[address] [address] Platelets (Bld) [#/Vol] 220 10*3/uL Normal 150-450 [facility] Comment on above: Performed By: #### B MP, CBC ####[facility] ([id number])[address] [place] [address]#### 6793-4 ####[facility] ([id number])[address] [address] RBC COUNT 2.24 X10E12/L Low 3.80-5.20 [facility] Comment on above: Performed By: #### B MP, CBC ####[facility] ([id number])[facility] [place] [address]#### [id number] ####[facility] ([id number])[address] [place] [address], [address] [address] WBC (Bld) [#/Vol] 9.0 10*3/uL Normal 4.0-11.0 [facility] Comment on above: Performed By: #### B MP, CBC ####[facility] ([id number])[facility] [place] [address]#### [phone] ####[facility] ([id number])[address] [place] [address], [address] [place] [address] Prealbumin IA [Mass/Vol]on 0 10-29-2023 Prealbumin [Mass/Vol] 19 mg/dL Normal 18-45 [facility] Comment on above: Performed By: #### B MP, CBC ####[facility] ([id number])[address] [place], [place] [address]#### [id number] ####[facility] ([id number])[address] [place] [address], [address] [place] [address] MAMM SPECIMEN FILMS RTon MAMM SPECIMEN FILMS RT Normal [facility] POTASSIUMon 10-28-2023 Potassium [Moles/Vol] 4.0 mmol/L Normal 3.5-5.0 [facility] Comment on above: Result Comment: SPEC IMEN HEMOLYZED, RESULTS INCREASEDMARKEDLY HEMOLYZED Performed By: #### 2 823-3 ####[facility] ([id number])[facility] [place] [address] Surgical Pathologyon 024 Surgical Pathology Normal [facility] Comment on above: Result Comment: [facility] [address] [place] [address] Surgical Pathology ConsultationPatient Name:IKE FLANNERY:1970 (Age: 53)Gender:FTaken:4Reported:4Physician(s):Christy He MD ([phone])Copy To:Jhon Gross, [facility] Clinicession #:[id number]. Rec. #:[id number]: #[id number] Pathologic Diagnosis1. Left breast, mastectomy: Breast with diffuse fibrocytic changes and minute focus of atypical ductal hyperplasia (ADH) Neoplasm is not identified Comment: Atypical ductal hyperplasia (ADH) is far from surgical margins2. Right breast mastectomy: INVASIVE DUCTAL CARCINOMA, Grade [...] 11:00, excision: Negative for neoplasm (6 mm thickness)4. Right breast, mastectomy additional margin 12:00, excision: Negative for neoplasm (6 mm thickness)5. Right breast, mastectomy additional margin 1:00, excision: Negative for neoplasm (8 mm thickness)6. Right axillary contents, excision: Six of twelve lymph nodes with macrometastatic malignancy (15mm) (6/12)(pN2a) Extracapsular extension is present One lymph node with individual tumor cells Comment: Immunostains were performed with adequate controls. Results show the following:CAM 5.2 highlights the metastatic malignancy.CANCER CASE SUMMARYSPECIMEN:Breast Procedure: Mastectomy Specimen laterality: RightTUMOR: Histologic type: Ductal Histologic grade: Glandular (acinar)/tubular differentiation: 3 Nuclear pleomorphism: 3 Mitotic rate: 1 Overall grade: 2 Tumor size: Greatest dimension: 1.8 cm Ductal carcinoma in situ (DCIS): Present, High grade Positive for extensive intraductal component (EIC). Tumor extent: Localized to breast parenchyma Lymphatic and/or vascular invasion: Present Treatment effect in the breast: Present, definite response Treatment effect in the lymph nodes: PresentMARGINS: Margins status for invasive carcinoma: Negative, all greater than 1cm Margins status for DCIS: NegativeREGIONAL LYMPH NODES: Regional lymph node status: Number of lymph nodes with macrometastases (greater than 2 mm): 6 Number of lymph nodes with micrometastases (greater than 0.2 mm to 2 mm and/or greater than 200 cells): 0 Size of largest bibi metastatic deposit: Exact size 15 mm Extranodal extension: Present Total number of lymph nodes examined: 12 Number of sentinel nodes examined: 0DISTANT METASTASIS: UnknownpTNM CLASSIFICATION (pTNM, AJCC 8th Edition)Modified classification: ypT category: pT1cT suffix:mpN category: pN2aN suffix: N/ASPECIAL STUDIES: Breast biomarker testing repeated in house, see belowBREAST BIOMARKER REPORTING TEMPLATEEstrogen Receptor (ER)Positive (percentage of cells with nuclear positivity: 75%); Average intensity of staining: DIm-ModerateProgesterone Receptor (PgR)Negative Internal control cells present and stain as expectedHER2 (by immunohistochemistry)Negative (Score 1+)Cold ischemia and fixation times meet the requirements specified in the latest version of the ASCO/CAP guidelines: YesAll external controls reacted appropriately.CommentMethods - Block: 2AFixative: Formalin (Formalin-fixed, paraffin embedded tissue)Estrogen Receptor: Food and Drug Administration (FDA) cleared (test/vendor): Confirm/ [employer], Primary Antibody: [id number] Receptor: FDA cleared (test/vendor): Confirm/ [employer], Primary Antibody: [id number]: FDA approved (test/vendor): Pathway/ [employer], Primary Antibody: [id number] System (ER, PgR and/or HER2): [employer] ultraView [place] DAB Detection Kit (indirect biotin-free detection)Scoring CriteriaEstrogen Receptor and Progesterone Receptor:Positive (ER only) - 10% or more tumor cells are immunoreactiveLow positive (ER only) - 1-10% of tumor cells are immunoreactivePositive (PgR) - 1% or more tumor cells are immunoreactiveNegative - less than 1% of tumor cells are immunoreactiveHER2 by immunohistochemistry:Negative (Score 0) - No staining observed or membrane staining that is incomplete and is faint/barely perceptible and within in <10% of tumor cellsNegative (Score 1+) - Incomplete membrane staining that is, faint/barely perceptible and in >10% of tumor cellsEquivocal (score 2+) - Weak to moderate complete membrane staining in >10% of tumor cells or unusual staining patterns (including circumferential membrane staining that is intense but within <10% of tumor cells)Positive (Score 3+) - Circumferential membrane staining that is complete, intense, and in >10% of tumor cellsReferences1. Micaela SOTO, Humberto ELDRIDGE, Shorty Valdez, et al. Estrogen and Progesterone receptor Testing in Breast Cancer; [place] Society of Clinical Oncology/College of [place] Pathologists Guideline Update. Arch Pathol Lab Med. doi:10.5858/arpa.2507-1712-FG.2. Bacilio SIEGEL, Humberto TAVARES, Micaela SOTO, et al. Human Epidermal Growth Factor Receptor 2 Testing in Breast Cancer; [place] Society of Clinical Oncology/College of [place] Pathologist Clinical Practice Guideline Focused Update. Arch Pathol Lab Med. doi: 10.5858/arpa.2650-7425-UZ. Report Electronically Signed Outnsk/11/10/2023Mariah Cm MDInterpretation performed [place] [address], License number: [id number].Clinical HistoryInvasive carcinoma right, desire for contralateral risk reduction.1. Short superior, long lateral, double deep.2. Short superior, long lateral, double deep.Gross Description1. Received in formalin labeled WIDMAN, left breast mastectomy is a left simple skin sparing mastectomy specimen oriented with a short stitch at the superior margin, a long stitch of the lateral margin and a double suture the deep margin. The specimen is 17 cm superior-inferior, 19 cm medial-lateral and 8 cm skin-deep. The specimen is resected with an overlying dark mahmood triangular-shaped skin excision, 5.5 x 3.5 cm with a centrally located everted nipple, 1.2 x 1 x 0.9 cm.The specimen is inked as follows:Superior/anterior-blue inferior/anterior-green deep-blackThe specimen is serially sectioned to reveal a moderate amount of buckley-white markedly dense fibrous breast tissue and remaining yellow-mahmood lobulated adipose tissue. No masses, hemorrhage or necrosis is identified. Development Officer sections are submitted.CassettesA upper inner quadrantB lower inner quadrantC lower outer quadrantD upper outer quadrantE registration representative deep marginF nipple(6,ss,X00-13002-2, m1) .2. Received in formalin labeled ALMA DELIA, right breast mastectomy is a right simple skin sparing mastectomy specimen oriented with a short stitch at the superior margin, long stitch at the lateral margin and a double suture is the deep margin. The specimen is 19 cm superior-inferior, 16 cm medial-lateral and 8 cm skin-deep. The specimen is resected with an overlying dark mahmood triangular-shaped skin excision, 7.5 x 6 cm, with a centrally located everted nipple, 1.5 x 1.2 x 0.6 cm.The specimen is inked as follows:Superior/anterior-blue inferior/anterior-green deep-blackThe specimen is serially sectioned from medial to lateral. Within the lower inner quadrant (4:00) there is a pink-mahmood firm stellate mass, 2.5 x 2.2 x 2 cm, with a biopsy cavity containing a T3 biopsy clip. The mass is:2 cm to the deep margin3.5 cm to the closest superior/anterior margin4 cm to the nippleExtending lateral to the mass are at least 6 satellite masses ranging from 0.3 cm to 1.8 cm in greatest dimension. The masses range 0.4 cm to 9 cm away from the biopsied 4:00 mass. The masses closest to margins are:0.5 cm- anterior/superior margin2.5 cm-deep marginSituated in the lateral aspect, 5 cm from the 4:00 biopsied mass is an additional biopsy cavity containing a Top-Hat clip. The area surrounding the clip is buckley-white and fibrous however no mass is identified. The biopsy clip is:3 cm to the deep margin1 cm to the superior/anterior marginThe remaining cut surfaces are comprised of moderate buckley-white fibrous breast tissue and remaining yellow-mahmood lobulated adipose tissue. Development Officer tissue is submitted to [employer].CassettesA-B 4:00 biopsied massC deep and superior/anterior margins of 4:00 biopsied massD-I sequential sections of satellite masses from medial to lateral (closest anterior/superior margin in cassette I)J deep margin of closest satellite noduleK Top-Hat biopsied area with deep marginL-M nipple, bisectedN upper outer quadrantO lower outer quadrantP lower inner quadrantQ upper quadrantFixation Time:Tissue removed from patient: 1001Time specimen placed in formalin: 1041Time specimen sliced and in formalin: 1600Total fixation time: 32 hours(17,ss,X48-4022 6-2, m1) 3. Received in formalin labeled WIDCHEN, right breast cystic additional margin 11:00 is a fibrofatty portion of adipose tissue oriented with a clip on the true margin which is now inked black. The specimen is 4.5 x 2.5 x 0.6 cm. The specimen is serially sectioned and submitted in cassette a-D. (4,ns,[id number] 6-3) 4. Received in formalin labeled ALMA DELIA, right breast mastectomy additional margin 12:00 is a fibrofatty portion of adipose tissue oriented with a clip on the true margin which is now inked black. The specimen is 4.5 x 3.5 x 0.6 cm. The specimen is serially sectioned and submitted in cassettes A-D. (4,ns,[id number], M1) 5. Received in formalin labeled ALMA DELIA, right breast mastectomy additional margin 1:00 is a fibrofatty portion of adipose tissue oriented with a clip on the true margin which is now inked black. The specimen is 6.5 x 5 x 0.8 cm. The specimen is serially sectioned and submitted in cassettes A-E. (5,ss,[id number] 6-5) 6. Received in formalin labeled ALMA DELIA, axillary contents is a matted portion of adipose tissue, 13.5 x 8 x 2.5 cm. The specimen is sectioned to reveal 12 lymph nodes, ranging from 0.2 cm to 4.5 cm in greatest dimension. The second largest lymph node is received with a biopsy cavity containing a biopsy clip and Magseed. The cut surfaces of this lymph node are buckley-white firm and solid. Development Officer sections of the 3 largest lymph nodes are submitted. The smaller lymph nodes are submitted entirely.CassettesA-B registration representative sections of lymph node with biopsy cavityC registration representative sections of largest lymph nodeD-E registration representative sections of third largest lymph nodeF-H 3 lymph nodes, serially section, 1 lymph node eachI-L 4 lymph nodes, trisected, 1 lymph node eachM 1 lymph node, bisectedN 1 lymph node, intactmed/10/29/2023NSKSpecimen(s) Received1: Left breast mastectomy2: Right breast mastectomy3: Right breast mastectomy additional margin 11:004: Right breast mastectomy additional margin 12:005: Right breast mastectomy additional margin 1:006: Right axillary contentsFee Codes(s):1; 380238; 05577, 14906-OM, 70310-LV, 249551; 862111; 815989; 437395; 72538, 48834 HPon 10-27-2023 HP History Of Present Illness [...] findings on echocardiography and lower extremity edema. [facility] NURSNOTEon 10-27-2023 NURSNOTE RN educated pt on d/ c instructions. RN encouraged pt to voice any questions or concerns. Pt verbalizes no questions or concerns at this time. Pt walked off of unit with all of belongings. [facility] 36on 10-23-2023 36 Per Raj in the cance r infusion center at [facility], this patient is scheduled for double mastectomy on 10/27. She wants to know if the RHC is that urgent or can it wait until after her surgery? Also, I'm assuming someone may be asking for clearance for this. Are you able to clear her or not until the heart cath? Please advise. [facility] Ambulatory Visit Summaryon 0 06-04-2023 Ambulatory [...] for choosing us for your care. Normal [facility] General Surgery Office/Clini c Noteon 06-04-2023 General Surgery Office/Clinic Note Chief Complaint post operative follow up HPI Staff 22 day post operative follow up post port insertion. Denies discomfort. no use of pain medication. Denies bleeding or drainage. Port has been accessed three times without incident. History of Present Illness s/p left subclavian ugzevy-w-qylv insertion 3 weeks ago; doing well, mild [...] virus vaccine, inactivated 12/29/2012 Recorded Normal [facility] Comment on above: Result Comment: Elec tronically Signed By: BRENNON JAMESON, Sandrita Mays\Date and Time Signed: 06/04/23 09:37 EDT Cytology Cervical or vaginal smear or scraping studyon 06-01-2023 [facility] MR Breast - bilateral WO and W contrast Ashwin 05-08-2023 MR BREAST BILAT W WO CONT W CAD BREAST MRI OF BOTH BREASTS- WITH CAD: 05/08/2023 CLINICAL: Preoperative Staging, Right breast cancer abnormal right axillary, internal mammary and subpectoral lymph nodes on recent PET /CT (done at [facility]) PET report also described other foci of increased uptake in the subareolar right breast consistent with other foci of carcinoma images are NOT available for comparison and no size of these foci of uptake was provided. Comparison is made to exams dated: 03/06/2023 mammogram, 03/20/2023 mammogram, 03/20/2023 ultrasound, 03/26/2023 ultrasound biopsy, 03/20/2023 ultrasound biopsy, and 03/26/2023 mammogram - [facility]. CONTRAST VOLUME ADMINISTERED: 10 mL Gadavist intravenously. CONTRAST DISCARDED: 0 mL Gadavist TECHNICAL: All images are generated with the [employer]'s 1.5T MRI employing 8 channel dedicated breast coils (1mm slice thickness with a .2mm gap). This machine employs a specialized trasmit-receive coil. Three-dimensional, high resolution fat suppressed T1 weighted images were obtained prior to, immediately following, and after a delay relative to gadolinium contrast administration. A precontrast T2 weighted image was also acquired. 3D image and subtraction processing was performed using C3[employer] software. The images were interpreted using image [...] nodes on recent PET /CT (done at [facility]) PET report also described other foci of increased uptake in the subareolar right breast consistent with other foci of carcinoma images are NOT available for comparison and no size of these foci of uptake was provided. Comparison is made to exams dated: 03/06/2023 mammogram, 03/20/2023 mammogram, 03/20/2023 ultrasound, 03/26/2023 ultrasound biopsy, 03/20/2023 ultrasound biopsy, and 03/26/2023 mammogram - [facility]. CONTRAST VOLUME ADMINISTERED: 10 mL Gadavist intravenously. CONTRAST DISCARDED: 0 mL Gadavist TECHNICAL: All images are generated with the [employer]'s 1.5T MRI employing 8 channel dedicated breast coils (1mm slice thickness with a .2mm gap). This machine employs a specialized trasmit-receive coil. Three-dimensional, high resolution fat suppressed T1 weighted images were obtained prior to, immediately following, and after a delay relative to gadolinium contrast administration. A precontrast T2 weighted image was also acquired. 3D image and subtraction processing was performed using C3[employer] software. The images were interpreted using image [...] MRI BI-RADS: 6: Known Biopsy Proven Malignancy [employer] Radiology Study observation (narrative) [employer] MR Breast - bilateral WO and W contrast IVOrdered By: Rosemary Gasca on 05-08-2023 [employer] Work Phone: CHEMISTRYOrdered By: [employer] SYSTEM on 04-06-2023 Anion gap [Moles/Vol] 10 mmol/L Normal 6 - 16 mEq/L R emisol Chem Calcium [Mass/Vol] 10.5 mg/dL Normal 8.9 [...] 9 mmol/L Normal 6 - 16 mEq/L R emisol Chem Calcium [Mass/Vol] 9.4 mg/dL Normal 8.9 [...] 023 CT Cardiac Scoring Normal MP-Nor th [facility] 250 DO Work Phone: Office Visit (Cardiology)on 09-29-2022 Follow-up visit Diagnoses/Problems Assessed Hypertension (401.9) (I10) Edema (782.3) (R60.9) Class 1 obesity with body mass index (BMI) of 31.0 to 31.9 in adult (278.00,V85.31) (E66.9,Z68.31) Orders Class 1 obesity with body mass index (BMI) of 31.0 to 31.9 in adult Healthy Weight Tips; Status:Complete; Done: [id number] Edema, Hypertension Basic Metabolic Panel; Status:Active; Requested for:[id number]; CT Cardiac Scoring; Status:Active; Requested for:[id number]; Patient taking Metformin or Derivatives? : No [...] Recorded: 29Sep2022 02:29PM Heart Rate76, L Radial Nnsyjcqe360, LUE, Sitting Tkdcwczuw58, LUE, Sitting Height5 ft 11 in Vybazf525 lb BMI Gnltmdcsyc90.52 kg/m2 BSA Calculated2.22 Tobacco Useb) No PHQ-2 #1. Over the last 2 weeks have you felt down, depressed or hopeless? (If yes, answer PHQ-9 below)No PHQ-2 #2. Over the last 2 weeks have you felt little inter (more content not included)... Normal [employer] Tobacco Screening.on 023 Adult depression screening assessment No [facility] 250 DO Work Phone: Fall risk assessment c) Not medically indicated [facility]ated [facility] 250 DO Work Phone: Tobacco use status CP b) No [facility]ated [facility] [employer] 250 DO Work Phone: Tobacco Screening.on 023 Tobacco use status CPHS b) No [facility] 250 DO Work Phone: CHEMISTRYOrdered By: SYSTEM SYSTEM on 08-15-2022 Anion gap [Moles/Vol] 10 mmol/L Normal 6 - 16 mEq/L F [facility] Remisol Calcium [Mass/Vol] 9.7 mg/dL Normal 8.9 - 11. 1 mg/dL [facility] Remisol Chloride [Moles/Vol] 102 mmol/L Normal 101 - 1 11 mmol/L FT Remisol Creatinine [Mass/Vol] 0.7 mg/dL Normal 0.5 - 1.3 mg/dL [facility] Remisol GFR/1.73 sq M.predicted among non-blacks MDRD (S/P/Bld) [Vol rate/Area] 105 mL/min/1.73 m2 Normal >=59mL/min/1 .73 m2 [facility] Chem S Glucose [Mass/Vol] 92 mg/dL Normal 55 - 199 mg/dL FT Remisol Potassium [Moles/Vol] 2.9 mmol/L Low 3.5 - 5.3 mmol/L [facility] Remisol Sodium [Moles/Vol] 138 mmol/L Normal 135 - 145 mmol/L [facility] Remisol Urea nitrogen [Mass/Vol] 15 mg/dL Normal 5 - 21 mg/dL [facility] Remisol Urea nitrogen/Creatinine [Mass ratio] 21 mg/mg High 10 - 20 [facility] Remisol Laboratory - Chemistry and C hemistry - challengeOrdered By: SYSTEM SYSTEM on 08-15-2022 CO2 [Moles/Vol] 29 mmol/L Normal 21-31 [facility] Niko yuliet Laboratory - Chemistry and C hemistry - challengeOrdered By: Sandrita Bettencourt on 08-15-2022 Natriuretic peptide B (Bld) [Mass/Vol] 23 pg/mL Normal 5-80 [facility] HemeManSS No Panel Informationon 08-15 105 {mL/min/1.73_m2} Normal >=59 [facility] 250 DO Work Phone: Comment on above: Chronic kidney disea se could be indicated at eGFR's of less than 60 mL/min/1.73m2. Kidney failure is indicated at less than 15 mL/min/1.73m2. 10 {mEq/L} Normal 6-16 Located within [facility] 250 DO Work Phone: 102 mmol/L Normal 101-111 [facility] 250 DO Work Phone: 2.9 mmol/L below low threshold 3.5-5.3 [facility] 250 DO Work Phone: 138 mmol/L Normal 135-145 [facility] 250 DO Work Phone: 9.7 mg/dL Normal 8.9-11.1 [facility] 250 DO Work Phone: 21 {No_Units} above high threshold 10-20 Located within [facility] 250 DO Work Phone: 0.7 mg/dL Normal 0.5-1.3 [facility] 250 DO Work Phone: 15 mg/dL Normal 5-21 [facility] 250 DO Work Phone: 92 mg/dL Normal 55-199 Located within [facility] 250 DO Work Phone: Comment on above: If this glucose resu lt represents a fasting glucose, interpretation should refer to the following reference range: 55-99 mg/dL Pass Normal Located within [facility] 250 DO Work Phone: Office Visit (Cardiology)on 07-21-2022 [...] Vital Signs Recorded: 21Jul2022 08:15AMRecorded: 21Jul2022 08:14AM Sehrqleg914, RUE, Awilnqp159, LUE, Sitting Btojtlvzp81, RUE, Pqoczus61, LUE, Sitting Heart Rate59, Apical Height5 ft 11 in Xfwjzl531 lb BMI Xrdkmafbgh99.82 kg/m2 BSA Calculated2.2 Tobacco Useb) No PHQ-2 [...] Neck: ne (more content not included)... Normal [employer] Tobacco Screening.on 023 Adult depression screening assessment No [facility] 250 DO Work Phone: Fall risk assessment a) No falls within the last year Located within [facility] 250 DO Work Phone: Tobacco use status CP b) No Located within [facility] 250 DO Work Phone: PAP ACOG PANEL 2: 30 to 65on 01-03-2022 . . Normal [facility] Comment on above: Result Comment: Perf ormed at: WB Performed By: #### 4 [id number] #### [facility] [address] [address] [address] Daniel Mcgregor Age Gdln ACOG Testing 30-65 Normal [facility] Comment on above: Performed By: #### 4 [id number] #### [facility] [address] [address] [address] Daniel Mcgregor DIAGNOSIS: Comment Normal [facility] Comment on above: Result Comment: NEGA TIVE FOR INTRAEPITHELIAL LESION OR MALIGNANCY. Performed at: WB Performed By: #### 4 [id number] #### [facility] [address] [place] [address] Dr. Daniel Mcgregor HPV Aptima Negative Normal Negative [facility] Comment on above: Result Comment: This nucleic acid amplification test detects fourteen high-risk HPV types (16,18,31,33,35,39,45,51,52,56,58,59,66,68) without differentiation. Performed at: =G Performed By: #### 4 [id number] #### [facility] [address] [address] [address] Daniel Mcgregor HPV Genotype Reflex Comment Normal [facility] Comment on above: Result Comment: Crit eria not met, HPV Genotype not performed. Performed at: WB Performed By: #### 4 [id number] #### [facility] [address] [place] [address] Dr. Daniel Mcgregor Methodology: Comment Normal [facility] Comment on above: Result Comment: This liquid based ThinPrep(R) pap test was screened with the use of an image guided system. Performed at: WB Performed By: #### 4 [id number] #### [facility] [address] [place] [address] Dr. Daniel Mcgregor Note: Comment Normal [facility] Comment on above: Result Comment: The Pap smear is a screening test designed to aid in the detection of premalignant and malignant conditions of the uterine cervix. It is not a diagnostic procedure and should not be used as the sole means of detecting cervical cancer. Both false-positive and false-negative reports do occur. . Performed at: WB Performed By: #### 4 [id number] #### [facility] [address] [place] [address] Dr. Daniel Mcgregor Performed by: Comment Normal [facility] Comment on above: Result Comment: [employer] Medical Records Field Technician (ASCP) Performed at: WB Performed By: #### 4 [id number] #### [facility] [address] [place] [address] Dr. Daniel Mcgregor Specimen adequacy: Comment Normal [facility] Comment on above: Result Comment: Sati sfactory for evaluation. No endocervical component is identified. Performed at: WB Performed By: #### 4 [id number] #### [facility] [address] [address] [address] Daniel Mcgregor MG MAMM SCREEN 3D VONNIE CADon 12-13-2021 MG MAMM SCREEN 3D VONNIE CAD Patient: IKE FLANNERY Exam Date: 12/13/2021 : 1970 Gender:F Ordering : DR KAYE MANUEL Admission #: [id number] Family : DR DAYANA BASHIR . Order #: [id number] CLICK HERE TO VIEW EXAM RADIOLOGY REPORT [...] Treatments None Family Cancers None LOCATION: [facility] BREAST COMPOSITION: Heterogeneously dense,which may obscure [...] MD on 12/13/2021 at 08:39 Normal [facility] COVID Quick Testingon 2021 Result Negative Qewz Other BASIC METABOLIC PANELon 08-31 BUN/CREATININE RATIO NOT APPLICABLE Normal - [facility] Comment on above: Performed By: #### 5 121, [id number], [id number] #### [facility] [address], [address] [place] [id number] Transmission Supervisor: Heraclio Miller MD Calcium [Mass/Vol] 9.7 mg/dL Normal 8.6-10.4 [facility] Comment on above: Performed By: #### 5 616, , 61025 #### [facility] [address] [place] [address] Transmission Supervisor: Heraclio Miller MD Chloride [Moles/Vol] 103 mmol/L Normal 98-110 [facility] Comment on above: Performed By: #### 5 616, , #### [facility] [address], [address] [place] [address] Transmission Supervisor: Heraclio Miller MD CO2 [Moles/Vol] 30 mmol/L Normal 20-32 [facility] Comment on above: Performed By: #### 5 616, , 46624 #### [facility] [address] [place] [address] Transmission Supervisor: Heraclio Miller MD Creatinine [Mass/Vol] 0.77 mg/dL Normal 0.50-1.03 [facility] Comment on above: Performed By: #### 5 6, , #### [facility] [address] [place] [address] Transmission Supervisor: Heraclio Miller MD GFR/1.73 sq M.predicted among non-blacks MDRD (S/P/Bld) [Vol rate/Area] 94 mL/min/{1.73_m2} Normal > OR = 60 [facility] Comment on above: Result Comment: The eGFR is based on the CKD-EPI 202 equation. To calculate the new eGFR from a previous Creatinine or Cystatin C result, go to https://www.kidney.org/professionals/ kdoqi/gfr%5Fcalculator Performed By: #### 5 616, 14829, 25629 #### [facility] [place] [address] Transmission Supervisor: Heraclio Miller MD Glucose [Mass/Vol] 91 mg/dL Normal 65-99 [facility] Comment on above: Result Comment: Fasting reference interval Performed By: #### 5 906, 32106, #### [facility] of [address], [address] [place] [address] Transmission Supervisor: Heraclio Miller MD Potassium [Moles/Vol] 3.4 mmol/L Low 3.5-5.3 [facility] Comment on above: Performed By: #### 5 616, 29396, #### [facility] of [address], [address] [place] [address] Transmission Supervisor: Heraclio Miller MD Sodium [Moles/Vol] 140 mmol/L Normal 135-146 [facility] Comment on above: Performed By: #### 5 616, , #### [facility] of [address], [address] [place] [address] Transmission Supervisor: Heraclio Miller MD Urea nitrogen [Mass/Vol] 11 mg/dL Normal 7-25 [facility] Comment on above: Performed By: #### 5 616, , #### [facility] [address], [address] [place] [address] Transmission Supervisor: Heraclio Miller MD IRON, TIBC AND FERRITIN [facility] 09-21-2021 % SATURATION 10 % (calc) Low 16-45 [facility] Comment on above: Order Comment: FASTI NG:YES FASTING: YES Performed By: #### 5 616, 28333, 81216 #### [facility] of [address], [address] [place] [address] Transmission Supervisor: Heraclio Miller MD Ferritin [Mass/Vol] 11 ng/mL Low 16-232 [facility] Comment on above: Order Comment: FASTI NG:YES FASTING: YES Performed By: #### 5 616, 21956, 92131 #### [facility] of [address] [place] [address] Transmission Supervisor: Heraclio Miller MD IRON BINDING CAPACITY 542 mcg/dL (calc) High 250-450 [facility] Comment on above: Order Comment: FASTI NG:YES FASTING: YES Performed By: #### 5 616, 38722, 10942 #### [facility] [address], [address] [place] [address] Transmission Supervisor: Heraclio Miller MD IRON, TOTAL 54 mcg/dL Normal 45-160 [facility] Comment on above: Order Comment: FASTI NG:YES FASTING: YES Performed By: #### 5 616, 16208, 12875 #### [facility] [address], [address] [place] [address] Transmission Supervisor: Heraclio Miller MD TSH W/REFLEX TO FT4on 2021 TSH W/REFLEX TO FT4 3.86 mIU/L Normal [facility] Comment on above: Result Comment: Refe rence Range > or = 20 Years 0.40-4.50 Ranges First trimester 0.26-2.66 Second trimester 0.55-2.73 Third trimester 0.43-2.91 Performed By: #### 5 616, 04547, 11225 #### [facility] [address], [address] [place] [address] Transmission Supervisor: Heraclio Miller MD Consent Formson 09-09-2021 Consent Forms [id number]#[id number] [place] [address] Coding Summaryon 09-03-2021 Coding Summary HTMLBase 64 AscdtvfhLRu6cHj+PGhlYW Q+OH0LOMRqT76vtVEbwS8V X3bXQJ2KONEMCOESLI4CWJ 0swFP7IKuaT7ZoxnGd GrtvbMJyHM12CSk0ISE7zF leSCdrxB1htSIwS5g6CdNz VD39xO09OArdCSAcXtB8Ph ZpbjsgbWFy Y2knOoIbiJBsNok+PHRhYm xlIHdpZHRoPScxMDAlJyBz wVypUK2dXf6eOJWeFKJpbG xhcHNlOiBj f8zlZZFrFAdnJJ9yoZcnA5 NicMQ5EAFhw7x4Bk20yNL+ VVHxMRC5fKivVKelr277No Zqb3opOHX9 fTCuDTrsLAM1Q22vs5X2NJ BqFZDaOLC8vJQ6cR6duLbo jdddB1YksMUgWkH9WQD2qE QxdS2emJrj bqbptY4gDqh+S35SKA0HFY PRMX1BDdr1Q3EqNbfqrHC+ QH04TTSkEO54wTKurONog1 urvLp8KoBz CVRaISY4jRucGZrze7ZyDR LsF32cpCQxt4T3ERVacGnu jDZqMpOjiZH7yU4jZJrstq ker0ivyaqs Vppsf2hvmd90hH45U31fGN cqRQCgICK9WYBkEKRsbMdy xt0whT2nIm6+MGiat7tkm6 ddtPa2GtHh OXDhimJxkXcfEJM3x9NsIr 45N2MmgXmtz6LuRab8ro48 gFCnf0C8aKQ2OQnfMRIpmM 9jBCcyJoB3 AYNcVsOpqD74dSOqSQeuBy 3ctFgpwZtaVW2nQPJghcvs MUClxN1aEAVesCHwrBmlMY 4wNTBpbjtm w409QvOkUSE7EEWanMDpW7 TbmC7gFaIaCVDtLAQpA0Ws oMFuCMtqB372UGwmPcZ9CH AdkyGrT8Ps MAGhpYorVbV1y1J8Lm2Fk5 XzhrjiMAH0SUoaMXK9NsG0 CmXoAaA0B2CzWtu2BLUowK bqZB9rB8Ss IRNpwysxsruxmNU8PQYxLZ KruT05nBVhZGdeWl6fe7Y6 q812YSEpIPRmlR22Oh9cuW ogMTBwdCBU dH5wwhlgv0utqevbIjYvGQ ScNWq9HTy4TRXhiGohWoHy YTN6GbE8BJZ8aKXffP1hhU anqwfoaE6z Oyc+A28rzP3pEXK9AVO9ac gtCXMklbByMM08CY71E3Pt PjwvdGFibGU+PGRpdiBzdH rsVH2iDaXc y7lbk4OvHQpwT7YfARIuLB vpSgo2MMUwPPF1eOT8hW8t EJXqVZmji3J5yNL4O9Jsqv Xadd4fv3ff RZUfBIurW20wjSExp9I9OT DkyFH8QEXkzHupRmKwfT29 Oyc+OOJyuRudq1BsLuqip1 hbf8ohiBz9 GaKhOCZbocLrlRaxQDR5n1 JmYs53F07lVOdiIVHxURPf LDRhWQAqiUkqew7zzO2rTv 8+PGNvbCB3 xOG3xV1uAKZbNeC4QGbaN6 38FmFhxMLhQvora1yop8ys kSb8BtVlEMKpkxNdrTceKL Z9z6MzPc15 T49xCIazSLVmKRReUXWqKT EioHvirx2tkT5hWp8+PC9j y6eazo77fU82vPK+PHRkIH O2sTicIDht XXAkjD7qLRtkYpV5ZZUyVq VelM56sKQxTVglGa7gzLak hMkgRP1jCZYrtdbrr238Fo Byt2ozMLSx lPSwVGcaOKX0Y98dh5K3TB CmUKCnMHY2nQY7gP4tuMpl bjogbGVmdDsgdmVydGljYW mrLJdfU957 IHRvcDsnPlBhdGllbnQgTm NjYOt7I4UsBrx2YCZejTtt MU6ytRDsBWnrSq9bsPrzsM zkOC3dQVTb kwtgg405RcShb4ibLPNzmP WiGYbdWBH3P43iu1B0MLWx BIDtWVN6lER1jY0vzWxecy ogbGVmdDsg jpKjzWvqKDwoLUekV472YG RvcDsnPkJpcnRoIERhdGU6 NO37LY62rTZqu5A4sNY1V9 BhZGRpbmct ajxrwZG1OSXvKDQudS65Bp 8lgJahAt1xXJOnWBU7UWZc gCFfZ2XyzG8qGoUyQKMfMU LsR9ElrSFj MNcxT560SOmyRaT0SRWart UbK1EdCUMpaWdqWqW7i8O6 Us7IH9F5IQ63SR12hFHpa4 U1rFS8C2Gf QAOwqahwvywsxMO2WTOjEB NbtJ58No6snIddAy7cZUAc FPS4IYZrlCCqQ9FpsF6lGo AjMDAwMDAw R3IgbGLeAVhyD095NSylKd G0DHJmeaBtD9OdLIFxdGme QaH8t8O2En8ZZLw8ZV13ML 79cLSsj6G6 rSE4U4NzIDHbzoxthicbcU D4YWOyNCAkrQ62Vy1jyFuz Cv1fRIMzTQT0ZQEgsWKfR5 QhsN7aXjYu GVZbRICsX5RjxRIvJRxpN1 57YYnpCaT3RAGoxzQtS7Nn REFdpZsmWfF3q5O9On2FWE MjBU57BYA9 bGT2HA96HL60U5WsEtxksQ FibGU+PHRhYmxlIHdpZHRo WEkuONJdRxQqfPjjBR9vVc 9yZGVyLWNv hKazrNEmEcTpj4iiGGYmRI igSU6wlXckF6KdkEN7HSAg m2v3Dn56P94rS5EepYM+PG HbbAL6lJK3 rW9pLdUuPhQ3NQopK399Rk CcpSAiSmfkc1ltp9vlkQt1 MkS0CLVwdwWdhEevKYQ9j3 IrZz74I36l IHdpZHRoPSIxNSUiIHZhbG lhlb2rzP6jSy6+PGNvbCB3 qNF2iF4lVcUtRaC3HRyoY1 49InRvcCIv Igxvr3jqm8uycCh4FxRgPX QkdmEfnTvfNKK3c0UaKq70 X3YjgCfvj3WjFds4ug49bY Uhg9H1aGG2 N0JvEOXrtciueXPpiOiiCP 0cFQHvxzszJGJrrO3hIXMf B3h2SnGzMdF0NUphH8Rknz A8MOMrzWLn YHepQHC9P30gx6E7OXXrVQ TgQGZ8uSL9xN4rkWihbntk bGVmdDsgdmVydGljYWwtYW hyQ869QNRl bFmdFUFliO9dLMVvyKMtaF twQI4gGVRcoeanUfvNIP8V TiwgRUxJWkFCRVRIIEFOTj wvdGQ+PHRk XGH5jUclGUpaLETfjK0qXT CaP2q6UlPrQaQ7RMavU3Xx OHYvamqlLt22aC6sOfGeJw V8TTclJ1Dv qzT8XVZxaTZoHAilWHJ2W6 8lc6L9AMJiFSEnZSN6zHN3 hA9lyTvrytgrpTLcuCvubt VydGljYWwt MQhpB290IBYusZhlRnF8Rz JqHcA8HvQ2N0YzZns1MKLv lNazWU0tyBKxDUmsUc1qnD vkwXlaAN6c CNQkhokxVZZmbM0vSEUnhU KqqMftEX2yXGBbgyrdn330 QmLnMLG4DHNlcHYjB1HfgX 9yOiAjMDAw RPSvY5XnsYTiGNviV273JF lpDhR7ZWJwsyRcT7WjSGXm kXczPaV0j9H1Bh99UJTRRE FyczwvdGQ+ FVAqEMW4vJpnVSycDEHptM 9aRAYiZ1d9EiYrWnZ6WKfh Z3HfRDHtkezkSb20qW2zFi FvZqW8SDta U3NpfwV4LWAyjLPnVOwsXM J9R84ee9G4QJTzWMVsUQM0 gKX5wQ9gyNbzuhenlQJdgA sgdmVydGlj FVhxPJtaA275AGGizKglUd ZFTUFMRTwvdGQ+PHRkIHN0 iVcyITihVQVkzJ6hDKHvV9 s7BpBaPwR0 YLxqE2KgKCQdojpbEr58lO 9mNgYfAfX6NSecJ9NxnmW9 BHVspXDmNZfnFQH4Z67fz9 N4HBIvMQDy DEA6dWM6iJ1kyEacasppvG VmdDsgdmVydGljYWwtYWxp E539MOHacUhlTbSrrNFFuU JbKYJ8UI09 HJ95Y7KsQlgmmPIvyQF+PH RhYmxlIHdpZHRoPScxMDAl DuAtbJdtHE9jDj0mNUHyPR NvbGxhcHNl EvBds4qgCJStLFjaVE9dfV xdT3BavHM2BDZdu7j7Rw45 M41sL5QxaXT+WMGetMC3bE D7mH5zMpSf SmA3RIkfR583NcKbuYOrFt qkk1jki4grmJt6CpWjDQXo xxKifKdoOMS1w2DePu83Y7 9sIHdpZHRo WOQkEYDfOFHvjSbxhs0poD 9wIi8+MWMdjGA3pAD9aO1r PgEcYnK3CYshH782UjGwjK GdAjvzQ91y F3VceVY+EUJtVkq9CODdsQ waZK1hfPJlSIakLl4dFTD4 YtFfVcVhVOczV7DqZULjlm ctcmlnaHQ6 BYZzXTZdkT10Us7dmLlrFw 1jAZYdRWM5KKUucJDfX4Rx lG3aFeEzAGMxRCAfY7QjnC QsQUkeR372 CHwaDjM0AAVhikTdF8MjDS AaaNigSyS3d3F7Rj5CpHvm zBRhYH4oRoZhGOn5O7PjYw p9EONuvUun VB5jhSCbHMlmBc8knRhbjV zgZF3xDAUvtzidg774PePr z2fuDZWouFYeAQyiHON5S0 0ei7C5LGFn WSFpSPR6tEW5mG6ncTwips ogbGVmdDsgdmVydGljYWwt XNruN229DGFmaDptVlQLVa k1Q9WpTjs0 RFBjvRexZW7dsWYaGLohZg 6zfRojiUoqJD7kQEKnmtzo k976YiUzo2cdBMBbrUCaZF ohGFG2J94a e2E3QVMjELGnCXV6sTC8aP 1hbGlnbjogbGVmdDsgdmVy aCkpKLtbUEhdJ103GAZpuO acYy8IDlj5 B8FjRbp2OSCuzQtnMQ7zxY ZwZTehEe3ntZjzxSvlHR2p SNTclbgyc682QeDur4fmLK EwcHQgVGlt RHD3Y82es5K1YVFxVEUoZQ Y5qEQ0jO8feWgelybcsODo dDsgdmVydGljYWwtYWxpZ2 46IHRvcDsn PlBheWVyOjwvdGQ+PC90cj 72M5WdBwhfHiv2XDZlHZB0 lXI9nG7pZNDvONdzd9M9aA J9F0BsuvTb ci1 (more content not included)... [facility] Coding Queryon 08-27-2021 Coding Query Documentation Requir [...] complete the Op Note by addendum. Thanks! Corry Serrano [Electronically Signed on: 08/30/2021 13:41 EDT] Hua Oglesby [Verified on: 08/30/2021 13:41 EDT] RenyHua martinez [Transcribed on: 08/27/2021 07:54 EDT] [facility] Consent Formson 08-27-2021 Consent Forms [id number]#[id number] [facility] [id number]#[id number] [facility] 08-26-2021 Anesthesia Note [...] on: 08/26/2021 14:58 EDT] Shanon Cadet MD [facility] Anesthesia Note Patient: IKE FLANNERY LEIGH Age: 50 years Sex: FEMALE : 1970 [...] = 1 tab(s), PO, Daily Potassium Chloride (Nmi-Twdn-Aye 10) 10 mEq oral tablet, extended release 10 mEq = 1 tab(s), PO, Daily traZODone 50 mg oral tablet 50 mg = 1 tab(s), PO, Once a day (at bedtime) Problem list (past medical history): All Problems Cardiac dysrhythmia / SNOMED CT 3896092709 / Confirmed HTN (hypertension) / SNOMED CT 7493657092 / Confirmed Histories Family History: No family history items have been selected or recorded. Procedure history: Arthroscopy of knee ([id number]) on 01/21/2021 at 50 Years. Comments: 01/21/2021 8:41 Gino Pickering RN right Abdominal hysterectomy ([id number]). Arthroscopy of knee ([id number]). Lipoma ([id number]). Comments: 01/04/2021 11:19 Milana Melton RN excision History of tonsillectomy (4394625570). ACL - Anterior cruciate ligament rupture ([id number]). Comments: 08/12/2021 13:15 Gino Heller RN repair [...] Oriented. Review / Management Laboratory Results Plan [place] [employer]esthesiologists#(ASA ) physical status classification: Class II. Anesthetic Preoperative Plan Anesthesia: General. . Anesthetic plan, risks, benefits, and alternatives discussed with the patient and/or family. Patient verbalized understanding. Informed consent was given. Anesthetic technique: General anesthesia, Patient presented with diastolic HTN; this was also noted on her PST chart. Had a lengthy discussion with her regarding this. Her primary care ([employer]) recently changed her from Toprol to Coreg... [...] . [Electronically Signed on: 08/26/2021 13:29 EDT] FullShanon nunez MD [Verified on: 08/26/2021 13:29 EDT] FullShaonn nunez [facility] Coding Summaryon 08-26-2021 Coding Summary HTMLBase 64 IyucojelAPo1fNm+PGhlYW Q+PG2PPEQrK56hrFFslL2O V7pKTQ2FMCQZXBDHCU6FSF 1tlKR3MEodO5HlqgAl VlrlxNHvOZ58VNm5RIA2uY jpAHkkqI3fdJCmY2t3DlIb CN92qY49AAhwIICfLgJ0Ot ZpbjsgbWFy R1nfTiCjsTQnXhq+PHRhYm xlIHdpZHRoPScxMDAlJyBz qIjeMO7qQj4jSZWfOKJavF xhcHNlOiBj z3lkMWDuFIfoQX1qhObaN7 LygAP5KQSlc4l6Gu10aTL+ EQKbBRT8oNkdFLzrn878Zq Tws4gjKLO2 zWVgHInkTKR8Q69mw4Z3ZY AmDBCeFHL1vKA6eD2rsGdj khqhP9FheECpOzQ2BEC2gS FraL4dnVjh hgkxzX7xXml+O03MQT3SKM JVXJ6VSjp4Z6IaSomaxZN+ KQ65OWHqDY39vCBbnYGiz6 hliBg8FwXf HFPqCUE5mLrtOVrbi7NuEM TcI31eaVTju2W8RRJudMvg jDOmLhNvkJG9sC2lGCtadc zhg1nozkjj Fnuli2mouv56rL14Q20kVD qgZDKhAFQ3UEAhFAMjpUsu tf3qdS1jHv5+JSixy3fki8 llcXr2TvYs VBEkgwXupWpcLYH8w4AzDi 33I6TtvRihd5DvRuw5cx20 mJOjm1Z0cZO1OYakQAQwwX 5kJRglDxC0 UGUbPnDulD23yVEuVWxmLe 4bjUobwYmrNJ3rQVHerypm MKFcvK7oEURdpGHagEolCC 4wNTBpbjtm i348HdIrLEH2RFCtcJPbY9 ModC9iAgSxHFYhDNOpI0Bp yXQaZKpoQ357AGckMnX5NV RcbbAlT3Yi FTAvcBcgBiL6e9M1Qx9Zr5 ClaidnYNE0XXqfCEH3BvJ5 GcKtKnM4X4YhWwr5UGDaqA ufHX3cU4Hn KRKvkmgzfhikuEW7PQSjTG CdeT57gXZxHLioJw4kj4X3 l123RTMxCXOuvL47Nt9fuX ogMTBwdCBU kD8vvbhfm7hywqcxBbXyDU UhDZr7DLf5JTVqqEbyUoVo SZE2GwD7KYW1yZRzsI9kbY yuqenncN3f Oyc+R34dfC3zUXC5URO4mt vyLWHjtvFzRQ17FW22A5Ax PjwvdGFibGU+PGRpdiBzdH kuOU2hDdHd z4ajq1FwAZeiN0YyTXJmXT kvDev4XDWjGWN1mTQ3cK5x FRVcPEkyt2E0eYM1B6Vxdy Knsp0xu9zc KHJaZDwmF29siJTiy1C4RP KfoRD1EXZbgXfwDfRiqQ59 Oyc+VMLxpAbcn0JrLhshx0 rlp7essKy0 OjZrZZGpnjRzyDsnFCM3m9 YgGq22D87sOIkcKVKyRIQz PZYfHALnlBnsdj4iwU4gWp 8+PGNvbCB3 fAY0eA4iLTLjPhY7WOvyS4 25DgVnuTKiWwevd4clr4if cTm7DsWyFCPatvKfgVapVN S5r0QyZp52 F33eAAsqJRUnJKCrPMMjHV KyfVaxjg1dpX0jCi4+PC9j a5mulg36fX45qAT+PHRkIH C4nWlaKPux ZFDqrM3yFKuqSeM2GETfWf QmeH97lWGoAYjuIh9xoJtc lXzpUW0kTZGmxyzhg130Yt Qme6mtGNOi uZCxWXnuHGR0H26bt0F3QJ OlJYBzXPT6wRU8sY0cwTmc bjogbGVmdDsgdmVydGljYW sbBUrbE238 IHRvcDsnPlBhdGllbnQgTm GkUFb6I5ZeDxn8RNQctDdz PT2wgLCuPCupIc3wpRzopP adDL7cAOIg uzjhh467FzVzc5veIQOinL DiJGftQZE2K94rq6B8XJTi KOPgWLW7dJV6jU6uxFvcop ogbGVmdDsg uzOuvHhtVErcVAwwL091NF RvcDsnPkJpcnRoIERhdGU6 IV69QI93vZInc8Y6vOQ5O3 BhZGRpbmct dtxrvLQ3MQOpGHFaxS30Se 1bqSerYq8eEYMbBCV3KIYx nUVaO6XgvY4oLzCnDGLvRJ PpC8SzjPNh DJnsT725POflRiZ0FOFkyb CtG3ThHOXweQvzJtC2a1V9 Wd2PX1K9PQ90QG14vIEqy3 F1bHO7B5Ez NPSsuckjtihkoUB0NZSjIJ NleR65Gq2jlMquZf9bZGSa YTW7KBYniOBoG4NzpC5iAt AjMDAwMDAw B5YadIXeMCbqK275AGknBq V5PHOvaaQeS0JbJQNhnTik EdL6o3Q6Ag4QTOx2OI08MY 36bPOmi9H7 bGP0L9NcZREcrpuskgnvaB J7ULPtUQApaO63Nj8ajRow Aa2oYRBpEWC5LZQycYIlI7 TvsO0lNxNk AYLqSOSnU9BavSNrDZzdK9 09RNrrOpU4XMYnmxPiW7Qm GTOpoWveFyL1b1L9Pv8PZY ImZP93RUK4 dAT5XD16EI03N7JiSutulK FibGU+PHRhYmxlIHdpZHRo YBcvHCKsDvUdiTfqCP8hXg 9yZGVyLWNv uXtetMCpKcZrw5rkPLRiZD gxDA8riGxoR3OikSW1KKGx q8r8Lr77V64lR5WxyTU+PG SopEO1aXK8 eX0nHzIzLkI2QBtbG408Iz JvfYKnCwahn9qdo3vluCn2 AxM0PRXsilDdqRerWLS2o9 UnRc35C75z IHdpZHRoPSIxNSUiIHZhbG vrvx0paM5cQi0+PGNvbCB3 gIG4gN6qCoBaWxA3BOnlL3 49InRvcCIv Umzno4cxj9rxtVu8QpLlTQ GinjDucHatFOS0r0TyMa91 G6JdbTesq5JzFek0pf65gD Bia4W8pBS1 G6HaGQMfnicqmDCrlFzmQR 6pOFFqtbpuRBModM7tBYGb J0z3QuJyRzQ0BIkuR3Htaa K7FRDonMGb UTzcRXY0I99it0M0CFEwQP NdCSC9uND9uN3trIrzvhgp bGVmdDsgdmVydGljYWwtYW oiX175CPDg yHmuIVJlfK8oGAUtgMKnxM muGF7dPAKnqwipDbvQGH0U TiwgRUxJWkFCRVRIIEFOTj wvdGQ+PHRk JWR9nKlgQZejKWNlzX3eRN YjW8c3AfMjAbT4HKfzA7Fv SRZurbmbVs64yM1dQnImFq W6BNyyR7Ii hpG2UWLjlLIoAYoyMRF3Z2 9bi4P7UFSfIIFpAGN5eVG7 gR5adOfiuqonrFBlgQxksb VydGljYWwt YNwqT996WRZspJiqZqM9Wl YsIsM7ScF7Z8OtIst8PJFy iOkmFK9pvZGlCZkhIl8kjN gykCarYP3c SBLzdvbnNJBixL3iDVYfgO VnsOlwPX7eSQRxejbbz083 CyPcGOE4JIMyhKUsI6AuiC 9yOiAjMDAw QEWsI0DzoAZoTWccN618ZN pjMbX8DEDwudXdF1XxZYZo mNoeJoZ7g0J5Ig38DRRGZE FyczwvdGQ+ HPPzUTH6wKohMNlkAKBaaB 5uWSMrK8c3GlLqWgK0QZdw Y4PzEQDzdfykJu92hA8dBg LsSqL1DQnk W6FotnX1WNEeoPLdAZtbVP F2H84sq0G2IXUgBPSqBLE7 uHF4rO5zlMfdydfuqNBsvU sgdmVydGlj UBgvCNswB345HRHkxJufTz ZFTUFMRTwvdGQ+PHRkIHN0 wPpkZFhkDXDouI4gOMFjK5 d6TlWrMbC9 VBiuB7TyPBPldhnmVe13sQ 2uHiTbMaH0RVprT9AnnzG5 YCFyfZJnKCwqJEL0U29cp5 R9BQFdLYCd VUU2oWJ1yH6qcPcllzvhhJ VmdDsgdmVydGljYWwtYWxp K607IQOmsRwzKw4SYT27PQ 79V7YeYmyl dGFibGU+PHRhYmxlIHdpZH LqHZjtJQEtIeAozXwlBG7a Zg0pIQHsLCXehVkktDEhJr Duw4sxNGDs ULnyOO5mrLxsB9YlcQP6ZA Qrt0g8Nn48C01mN6AmsHC+ MZLodDL9mRM2wG0fDfQuCx U2ZTtnZ491 GvKnyAWxUcgul8fuc2zfoU z9XyRxJDPmymBqvRoaLVC0 w8PuZr91G01wPOnaRBAkIR IyMCUiIHZh bHbiol5igI8eJe0+PGNvbC O7gMF3kW6nYdYtFnR4TLyl Q691XfDnxZFoVbiiQ15kJ4 JvdXA+PHRy Vjj8CAGqeJbeZH7hgDDqIL luAt4gLYS1PtPxYqDsRWhj C7KrRIDukolvjixeeXA4FD XuVMSddM82 Nu7nhAwjFw1bXDQoAJE4JQ YypEHrO7PbfX4qKrJiSTVo OSFyI7SpkAFqPVzbT946PG pmIiO2KTJk mmOdL2EhWYVdrHqtSqH3o1 S7Si6MnQvolZCnZC7cWsAn MPa7Q6LlIqh8IWUoiWpyIB 0ncGFkZGlu Ea3lpEndeWevMN5bQDLtxc jzk412ZpEul9tkKWRrwRRf TOquGEU5T98md1A7AXUiDY IqHOP0bHQ4 bB9ceOzzeefsiTBuaLmmag RjwGumHJteEJivR397AUWs aNnjRmJSAaz0D2PoVdh1LV VgjNurWN5z nTAuJVdbTf1aaYvzlMfbLA 4dZBCkrqced610CeMxm3yb XBVymVUoWYjnHDA5H36ve3 B9ILSpXFMe KMW8eTJ0bW5byDszybmliD VmdDsgdmVydGljYWwtYWxp M488EDUblKmfEl0BWmw6E3 NtFqt7YBLv tBqpAY3bvSWhIBacHf0voN yidNzaHS3hCPKpntkan098 PjWxx9gxNLVejWKxZFkwST E2S70nr8R0 TGEzHJAfJSQ4sCW2mV4ctF lnbjogbGVmdDsgdmVydGlj OKjiUPqmR747CIKlgXvoIl BheWVyOjwv dGQ+QJ95yt02K0WaXvhdKs p7MTGqOID3xQW5qQ0pZDEv ZPiok4X0pPW2S6SjooZpha 9tr5quBLLc ZTo (more content not included)... Normal [facility] Inpatient Patient Summaryon 08-26-2021 Inpatient Patient Summary [place] [id number] Patient Discharge Instructions Name: NICCHENIKE : 1970 Patient Address: [address] [place] [address] Primary Care Provider: Name: RANDY CALLE After you are discharged if you find you have any questions, please, call [phone] ext [phone] to speak to a nurse. Discharge Diagnosis: Internal derangement of left knee Prescription Information: If you have been given a prescription for narcotics, seek immediate medical attention if you have any difficulty breathing or any sudden status changes such as confusion and sleepiness. If you or anyone you know is experiencing suicidal thoughts, mental health, alcohol and/or drug addiction problems; contact the [facility] 22/09 Crisis Hotline -Text 4HJYE or 824468. If you received any narcotics, sedation, or [...] business decisions or sign any legal documents [facility] would like to thank you for [...] Have Not Changed Other Medications acetaminophen-hydrocod one (!-[place] 5 mg-325 mg oral tablet) 1 tab(s) Oral Every 6 hours as needed as needed for pain. carvedilol (carvedilol 12.5 mg oral tablet) 1 tab(s) Oral 2 times a day. cyclobenzaprine (cyclobenzaprine 10 mg oral tablet) 1 tab(s) Oral At bedtime as needed for spasm. hydroCHLOROthiazide (hydroCHLOROthiazide 25 mg oral tablet) 1 tab(s) Oral every day. potassium chloride (Potassium Chloride (Kol-Iswb-Lan 10) 10 mEq oral tablet, extended release) [...] you can keep with you. acetaminophen-hydrocod one (!-[place] 5 mg-325 mg oral tablet) 1 tab(s) [...] Oral every day. potassium chloride (Potassium Chloride (Jui-Fjwa-Oas 10) 10 mEq oral tablet, extended release) [...] may then shower. Rewrap the knee with attila wrap Take Aspirin 325mg 2x/day to prevent [...] flow is (more content not included)... Normal [facility] MAGR Intraoperative Recordon 08-26-2021 MAGR Intraoperative Record MAGR Intra-Op Record Summary Primary Physician: Hua Oglesby DO Finalized Date/Time: 08/26/21 15:08:30 Pt. Name: IKE FLANNERY LEIGH [place]/Sex: 1970 FEMALE Med Rec #: [id number] Physician: Hua Oglesby DO Financial #: [id number] Pt. Type: D Room/Bed: / Admit/Disch: 08/26/21 11:01:00 - Institution: Case Times MAGR Entry 1 Patient In Room Time 08/26/21 14:02:00 Out Room Time 08/26/21 14:56:00 Anesthesia Start Time 08/26/21 14:02:00 Stop Time 08/26/21 14:56:00 Surgery Start Time 08/26/21 14:27:00 Stop Time 08/26/21 14:47:00 Last Modified By: Rj Eid RN 08/26/21 14:53:59 Case Attendance MAGR Entry 1 Entry 2 Entry 3 Case Attendee Hua Oglesby William MD Baumer, Erica RN Andrew DO Role Performed Surgeon - Primary Anesthesiologist of [place] Record Time In 08/26/21 14:02:00 08/26/21 14:02:00 08/26/21 14:02:00 Time Out 08/26/21 14:56:00 08/26/21 14:56:00 08/26/21 14:56:00 Procedure Arthroscopy Knee(Left) Arthroscopy Knee(Left) Arthroscopy Knee(Left) Last Modified By: Rj Eid RN, Erica RN Baumer, Erica RN 08/26/21 14:54:01 08/26/21 14:54:01 08/26/21 14:54:01 Entry 4 Entry 5 Entry 6 Case Attendee Dorothy Archer RN HAULPAK DRIVER, Avi Navarrete HAULPAK DRIVER, Shanique CSFA Role Performed [place] [employer] Personnel Time In 08/26/21 14:02:00 08/26/21 14:02:00 08/26/21 14:02:00 Time Out 08/26/21 14:56:00 08/26/21 14:56:00 08/26/21 14:56:00 Procedure Arthroscopy Knee(Left) Arthroscopy Knee(Left) Arthroscopy Knee(Left) Last Modified By: Rj Eid RN, Erica RN Baumer, Erica RN [...] laparoscope or robotic assistance Last Modified By: Rj Eid RN 08/26/21 14:51:16 Post-Care Text: O.730 [...] start of the procedure: Last Modified By: Rj Eid RN 08/26/21 14:31:09 Post-Care Text: O.760 [...] essential N/A imaging displayed? Last Modified By: Rj Eid RN 08/26/21 14:32:27 Patient Positioning MAGR [...] Outcome Met (O.80) Yes Last Modified By: Rj Eid RN 08/26/21 14:32:41 Post-Care Text: E.290 Evaluates musculoskeletal status O.80 Patient is free from signs and symptoms of injury related to positioning Skin Prep MAGR Pre-Care Text: A.30 Verifies allergies Im.270 Performs skin preparation Im.270.1 Implements protective measures to prevent skin and tissue injury due to chemical sources Entry 1 Skin Prep Syntegrity Prep Agents (Im.270) Chlorhexidine Gluconate Prep By Rj Eid (more content not included)... [facility] MAGR PACU Recordon MAGR PACU Record MAGR PACU Record Summary Primary Physician: Hua Oglesby DO Finalized Date/Time: 08/26/21 15:37:09 Pt. Name: IKE FLANNERY/Sex: 1970 FEMALE Med Rec #: [id number] Physician: Hua Oglesby DO Financial #: [id number] Pt. Type: D Room/Bed: / Admit/Disch: 08/26/21 11:01:00 - Institution: PACU Case Times MAGR Entry 1 In PACU I 08/26/21 14:56:00 Discharge from PACU 08/26/21 15:30:00 I Last Modified By: Elvira Navarro RN 08/26/21 15:37:04 Finalized By: Elvira Navarro RN Document Signatures Signed By: Elvira Navarro RN 08/26/21 15:37 [facility] MAGR Postoperative Recordon 08-26-2021 MAGR Postoperative Record MAGR Phase II Record Summary Primary Physician: Hua Oglesby DO Finalized Date/Time: 08/26/21 16:25:07 Pt. Name: IKE FLANNERY/Sex: 1970 FEMALE Med Rec #: [id number] Physician: Hua Oglesby DO Financial #: [id number] Pt. Type: D Room/Bed: / Admit/Disch: 08/26/21 [...] Signed By: Elvira Navarro RN 08/26/21 [facility] MAGR Preoperative Record MAGR Pre-Op Record Summary Primary Physician: Hua Oglesby DO Finalized Date/Time: 08/26/21 15:18:23 Pt. Name: IKE FLANNERY LEIGH /Sex: 1970 FEMALE Med Rec #: [id number] Physician: Hua Oglesby DO Financial #: [id number] Pt. Type: D Room/Bed: / Admit/Disch: 08/26/21 [...] Signed By: Elvira Navarro RN 08/26/21 15:18 [facility] Operative Report - Surgeon/P aster 08-26-2021 Operative [...] on: 08/30/2021 13:39 EDT] Hua Oglesby DO [facility] Patient Handouton 08-26-2021 Patient Handout POST OPERATIVE KNEE ARTHROSCOPY DISCHARGE INSTUCTIONS SURGEONS WRITTEN INSTRUCTIONS: Ice and elevate operative knee as needed to reduce pain and swelling for the next 48 hours Range of motion to the operative knee/ankle pumps 10 times/hour Bear weight to tolerance on operative leg Change your dressing in 24 hours, you may then shower. Rewrap the knee with attila wrap Take Aspirin 325mg 2x/day to prevent [...] be done to rule of a DVT. [facility] Progress Note - Nurseon 08-01 Progress Note - Nurse Pre-op call done, instructed to arrive @ 1100 on 08-26-21, NPO after midnight, and need for ride to and from hospital-verbalized understanding. [Electronically Signed on: 08/23/2021 13:36 EDT] Gino Painter RN [Verified on: 08/23/2021 13:36 EDT] Gino Painter RN [facility] 2018 Novel Coronavirus (CoVI D-19), KYLE LCon 08-22-2021 SARS-CoV-2 (COVID-19) RNA KYLE+probe Ql (Unsp spec) Not detected Invalid Interpretation Code Not Detected [facility] Comment on above: Order Comment: [id number] [facility]# [phone] Result Comment: This nucleic acid amplification test was developed and its performance characteristics determined by [employer]. Nucleic acid amplification tests include RT- PCR [...] detected) result in this assay. Performed At: [facility] [id number] José Manuel Chery PhD Ph:[phone] Performed By: #### 6 [id number] ####[facility] [place] [address] Coding Summary 08-15-2021 Coding Summary HTMLBase 64 BrdvuvrtZRt0rGg+PGhlYW Q+LM8TIKHeS27dqQPsaM1W T3eFGX2ANMQWTZCXNT6XWN 7erQU2HMfnN4EearPt IyyqpDQcRK62TOi6THZ1iR rbEFofjT8ajQGuJ6e3OmDs TM48uC87NJcrAVOcQbG2Rl ZpbjsgbWFy C8zzVoUoqOEyQwb+PHRhYm xlIHdpZHRoPScxMDAlJyBz hGjrKC2zQd7cTMSbRUOkuA xhcHNlOiBj e2czRJRoDPagKK8iaMxuC2 XwdGK9LAJgz2j1Lx59bPN+ XWHsBYE4qUdsCTera951Bn Vdv0jrJAA7 pJItWXzfUBH2T29qr0L5AK RhEYPtJTN9zNO7yS8xbTqt ixebC9BbiRQyWcZ1DAR8eG KskJ0feZun mrflzM0sUwf+Y05GTN6QWB SHYJ5PHjv9W6KlOxaooLN+ CC78ICUyUL98wJSffXIuv8 holYa2TwKd SFJwLUH6tDpiVMabw7IoDE JoE98igSRjt4Y7YLBbsDnw lOTqFfLxsVE6hO8aYAnhqa odk8gjnvhn Mfvnb2eugt80wO26K99xOL hjOTXpVVF7OYMsVRCtaLtc vq9coD5tCz8+RJock2wqf6 mwaKs4VqWx CXOlfvDesGwxZYM9q5PaGk 99N9ZmmYbzm7UcJau3vj42 oSLgf2C9nOM8KFkqRPElvM 5hNWpsQwJ4 ZIYyNaEssV62mEAtCXlpWf 7cmCpqoVnpGP0lAZNmoofa PBAtmA0gKFRdpNMfdPbbWG 4wNTBpbjtm g702SpDcNYV9NKBwjDUkQ6 ZwmT5dTvHnBHQnBGZkK0Sn kQKyQPwgZ158VVazRgH1PH FmvkXuR6Hq WWMwdBawHmC6k9H3Wk6Gm5 FjwpspLNS8SUeeBKS4XqM1 LyOqMmF8T9RzEac5VHOehS erNG7bI2Ww TVMumdbazwmnjJF8ILAyHE JijY06eJRbTNdwLl1nb9H2 b756GRWoJUGutF32Gz1quO ogMTBwdCBU dN3eblusy2jtbydyPvXqDD FbZNn4RTr9IUDryDncZqMf FRU7OpE5NGZ1gZPgdA7whX xcgwsmdX0l Oyc+C15vaU9iICR2NSE2ky qnHFYphlJtOS46RL90A4Mq PjwvdGFibGU+PGRpdiBzdH vhWT0aZgPy e5kxp7DbZExpA8JhXWJsLE zvHqk7UEImOZR2bHZ1pA9k HLGuDLgkh5X0dSH3B0Ruyw Qmrl9mq7ie XPTkNUleZ64qkHIob6Y4SG ZvqUC7TJAtpRjrHrJvaG44 Oyc+EUUjwWxkp2OyBwbxj1 hrt7msiQt1 XdTdAANfctWgvPjhELW5z8 CtUl45M46oABziZAWxPSRh HJMlOYJxaXrfbj7cxS0tWn 8+PGNvbCB3 uSH0jE5lSEKwXmS5QNipM2 48NpNprCJkIaish3hkb7nc sKe7KeJlMMAujtQieXgaYM K0u5BbSz92 I89oDBedGPNgCJJdMNWrCH WpzJichq9goV6aLp8+PC9j k5gjez85zO86pLM+PHRkIH H9mVvhOFfz QPMusS8lCXczMkA6ZQGjMb ZfrB07jLRoSVqdBf5trHvq kAkgOX5kJGRrmflpc938At Idc1kfTVEk fCXaUUntPHC2Z85hu9T7VF MoBLWtSLI5gRE4kC0ftIbc bjogbGVmdDsgdmVydGljYW meMVjjT574 IHRvcDsnPlBhdGllbnQgTm HdDGz1P9HoWej8XGZlbXhb HS3uxQMdWZusOc4iaMvslM feCD0nJRYt nfjom721HoIcn3nxNVZcjJ UkLUzxGFV8B13jb0Z8LVZq GNEpBCS8pAO3jZ5mqUuhsj ogbGVmdDsg gkZijDfjKGmbEXivV159ZX RvcDsnPkJpcnRoIERhdGU6 BO00KR67rLJhh7G7nNA8J6 BhZGRpbmct fbenfWX8LNKrUASzqS93Hk 2euDwlHs5nWVLyGRP1JUYk jUIwV7SrsO3yJoWaYSRyIR UkN4VulOOn JCuzM129SAdyOkF3FHYbri IrC4FmJPPeqEivXhL5w5F2 Ib0YM0O1JT68VE97hPYcw9 B2lTC8W6Ok NBCxjtjfbddhxZW8NUVoIM VizG07Kv7rhSkmXc7jJLEk HOB9GOIpiNZwB0RlfT4zJu AjMDAwMDAw R7MqnJNmTQzoQ536ASgtPn B2MPUdagDvN7IeOZKlfAbp YmL6f6F8Zk0SDVe0IN66JE 14cJFgp2W2 xQZ5I7TsBSObwtfsfzpzrK I1AGYuDAYofX33Yq1qoBxp Sc8aLGUnRRF2LTApeSYvR1 ZuiT6fBsCt BVSmWNXvB2IevNUmGDpeQ3 56EEwgKqL4JEQqmoIwV9Iv YDCelNrlVoY0m7X0Xl3ZQD TwHI69RMI9 iUZ3WZ04GU65Y5YaRvohpI FibGU+PHRhYmxlIHdpZHRo CIroBETrLjGaxVdqDL3cBl 9yZGVyLWNv dXjphFTeIbJgd6hlIUKnPH leUK4wzDhoR7IngYD9KYKg x3z2Na41Y80iY3CexSE+PG UubVO0cNT4 sS4nKlYzGpX0JPlsZ115Mm YbdZInYfead5qvn7fgsGa6 YvX3PISkovFdhEmpJIF5b5 XzBz93N61e IHdpZHRoPSIxNSUiIHZhbG flgw7raG2mJl4+PGNvbCB3 jSG4oZ2aMiEbPnJ1QXleM7 49InRvcCIv Ueows3vqt0imaJg2GnRfJX WvplRogBmpSWG5g8YvLw30 D8PcxLdap0XxGze4xc53kG Wfl5U0cEW2 N9CnDUSnafawnBAeiOpdNP 5fIFUurwflWVXioW2rOVEc W1o5AoZcPdK1VOvlJ0Bivg L5DEHxcARx BQaoHEO2F58ao9Y7ABKlDR FlQXI9bPM8cP8viBpczlad bGVmdDsgdmVydGljYWwtYW joB606VBDq xMnjFIBnuB4hOCXqzBFnjY xzBI3zDNNjszgrDsvOBK1R TiwgRUxJWkFCRVRIIEFOTj wvdGQ+PHRk OXG0lPorTKeuKDFhxR5mTZ KdO2o1EcXzDqN0VOntA1Bl GATwgobnLu65nK5qJqNvLp H6MJnjX9Bi elQ6JVSjfSSaATesVMN2Y0 6lf5T2YENbTEHgLCB9tRQ7 gQ7bnJrhcmkonPPheUfzsg VydGljYWwt QFgaX581ZPBuiJviRpH6Hb YzQbZ8NaZ9L3PbOiu4VUEs qAuoNW5psUDvWUzkMy3kwM zvoPciRC1l TPAbmhgmEZKtiE5bXWBspY MiaOpcGJ1oJZWpwnbhk930 JiTuVJH9PUTxlZTuT5MvaQ 9yOiAjMDAw FAOpK2TquPPnYSfpD230BE hvUqT2RNIfqwFcV0IwGWWv kFrrJoB2a8R1Vh62XTPOLP FyczwvdGQ+ JYFeOYE3aBaiCRebIJUgmE 0aVWIaY8r7RhKpKtA4EZcj K1VkMOIypibyTd57dK4hFa HyWxZ3YBto G4SxbzM6PZIlnHSzEVhxSY U7U56pa1P9UJTuBLIxCGZ1 yTQ6zC3duDpfialovCVboZ sgdmVydGlj IWfqENmsP519TJFhtKhhNi ZFTUFMRTwvdGQ+PHRkIHN0 rPviBAfdUCXjeA0bVUGxZ3 o4CrWlFvN2 BAsaI7LkPEUmttjiCr69yK 5kAdKsTaR0WUikF4AwgoH1 URPjpDFgMOefPUD5X67oy6 S7MHHhLRQw RBJ9fYV4fD1qyIyihprizJ VmdDsgdmVydGljYWwtYWxp H717EECorJtkFr9GCO44ZM 62G9IlOeyb dGFibGU+PHRhYmxlIHdpZH XjBWhwHIDvXrKhiLdkAV3l Le9sSIMwYFIgeBbvgJAhPx Qjc5sfEQWj LWwkZF4cgBtvB3NuaVL2ZT Lwm8q3Ba89D98iP3PaiVG+ AMIrlOM4uLO3eB9gGkMeOy F7JOfdJ942 RmRnaFAqHqxpw5lts9eokT f6IsDfOMKlmlEcsOlnNRN0 h8HhIh13R54ySRvvVPGoXN IyMCUiIHZh cNplem1raJ7wLv2+PGNvbC I4zNK1kX5rViLtPwN6QLcw Q613RkPydKFfUfidY79eW4 JvdXA+PHRy Owo2SCNlbTqfRT1ftPUsBC guNl7cGCT3BoQpLgXgOWkw J7QbFMIbipwwnuquaPG0II AsQSPkiV94 Zg3mnTqyPh7mBBSwNJT6SS EhwTMoS1EtzZ2bLwDpWTYj TAIcY9EtkHYyTZwdG409ZA peDvS5DMCu ivQhS6BjJWEduHleRtC9x2 G8Zu7QeEthdQByGJ5kLvJs IJr2Q2ZyQoi8BJNncErxTD 0ncGFkZGlu Ir1hqWsmlVvwPX5dHSAkzd prp957AsApi8zjPYUmwIOt MMcrTBY3N96mu3B8HBUnIU FdIKT7cCE1 fR9kqZorojbowPKdaMbmzu IzxHlpNWjhMMflT645TNZw nOwkDgDDIfn2T4DtYze3XP FtxMcxQJ0d jQVeWHwzNm0voPqckGwuVM 7oPMTkeclnl556DqJul4vf XLHaiSDrRVvmAET0E65ky1 B9CMXqZAMt ZMN4fGS0rX6lnHusthhfhE VmdDsgdmVydGljYWwtYWxp O603QMWyhWcnMh1PXxl8U7 QxGdv6SDVi zRltVV1nbTKbWFmyVn5qtO jclPphRQ6gDRFjyqcmn656 JcDsc0sgWLPagURtGCbnHD B3H72nq9H3 XUFrIRQmZLL9sRI1xE1ceO lnbjogbGVmdDsgdmVydGlj LOuqTTsxN416MLFbpCflMn BheWVyOjwv dGQ+JV54qj64L6WnRrseNv c1RIDdQIS3mZP3kJ5cCWLr TUojd7R1cGS7S7EyefJlgv 2qv8mqEOJm ZTo (more content not included)... Normal [facility] Inpatient Patient Summaryon 08-15-2021 Inpatient Patient Summary [place] [id number] Patient Discharge Instructions Name: IKE FLANNERY LEIGH : 1970 Patient Address: [address] [place] [address] Primary Care Provider: Name: RANDY CALLE After you are discharged if you find you have any questions, please, call [phone] ext [phone] to speak to a nurse. Discharge Diagnosis: Prescription Information: If you have been given a prescription for narcotics, seek immediate medical attention if you have any difficulty breathing or any sudden status changes such as confusion and sleepiness. If you or anyone you know is experiencing suicidal thoughts, mental health, alcohol and/or drug addiction problems; contact the [facility] 22/09 Crisis Hotline -Text 4AWRV ba [phone]. If you received any narcotics, sedation, or [...] business decisions or sign any legal documents [facility] would like to thank you for allowing us to assist you with your healthcare needs. The following includes patient education materials and information regarding your injury/illness. IKE FLANNERY has been given the following list of follow-up instructions, prescriptions, and patient education materials: Follow-up Instructions With: Address: When: MYESHA VINSON [address] [place] [address], [address] [place] [id number] Business (1) 09/03/2021 9:15 AM With: Address: When: RANDY CALLE [address] [place], [place] [address] [address] Business (1) Medications During the course of your visit, your medication list was updated with the most current information. The details of those changes are reflected below: Medications That Were Updated - Follow Below Instructions Other Medications Updated: potassium chloride (Potassium Chloride (Gbk-Aakb-Fdz 10) 10 mEq oral tablet, extended release) [...] Oral every day. potassium chloride (Potassium Chloride (Dlx-Drha-Vlb 10) 10 mEq oral tablet, extended release) [...] for Disease Control and Prevention October 2013 [facility] Patient Handouton 08-15-2021 Patient Handout [facility] Progress Note - Nurseon 07-31 Progress Note - Nurse Dr. Small review s PAT information and testing results. Ok to proceed, no orders given. [Electronically Signed on: 08/14/2021 12:02 EDT] Dary Gallegos RN [Verified on: 08/14/2021 12:02 EDT] Dary Gallegos RN Normal [facility] .Auto Diff 108-12-2021 Auto [place] % 8 % Normal 12 [facility] Comment on above: Performed By: #### 1 [id number], [id number], [id number] ####[facility] (DEFAULT)[address] [place] [address] Baso Abs# 0.1 x10 Normal 0.0-0.2 [facility] Comment on above: Performed By: #### 1 [id number], [id number], [id number] ####[facility] (DEFAULT)[address] [place] [address] Basophils/100 WBC (Bld) 0.9 % Normal 0.2-2.0 [facility] Comment on above: Performed By: #### 1 [id number], [id number], [id number] ####[facility] (DEFAULT)[address] [place] [address] Eos Abs# 0.3 x10 Normal 0.0-0.4 [facility] Comment on above: Performed By: #### 1 [id number], [id number], [id number] ####[facility] (DEFAULT)[address] [place] [address] Eosinophils/100 WBC (Bld) 3.9 % Normal 0.9-4.0 [facility] Comment on above: Performed By: #### 1 [id number], [id number], [id number] ####[facility] (DEFAULT)[address] [place] [address] Lymph Abs# 2.6 x10 Normal 1.3-2.9 [facility] Comment on above: Performed By: #### 1 [id number], [id number], [id number] ####[facility] (DEFAULT)[address] [place] [address] Lymphocytes/100 WBC (Bld) 30 % Normal 14-48 [facility] Comment on above: Performed By: #### 1 [id number], [id number], [id number] ####[facility] (DEFAULT)[address] [place] [address] [place] Abs# 0.7 x10 Normal 0.0-0.8 [facility] Comment on above: Performed By: #### 1 [id number], [id number], [id number] ####[facility] (DEFAULT)[address] [place] [address] Neut Abs# 5.0 x10 Normal 1.5-9.2 [facility] Comment on above: Performed By: #### 1 [id number], [id number], [id number] ####[facility] (DEFAULT)[address] [place] [address] Neutrophils/100 WBC (Bld) 58 % Normal 44-88 [facility] Comment on above: Performed By: #### 1 [id number], [id number], [id number] ####[facility] (DEFAULT)[address] [place] [address] Standardon 08-12-2021 eGFR Non AA >60 Invalid Interpretation Code [facility] Comment on above: Performed By: #### 1 [id number], [id number], [id number] ####[facility] (DEFAULT)[address] [place] [address] eGFR AA >60 Invalid Interpretation Code [facility] Comment on above: Result Comment: Restrictive Preparation Operator medina Kidney disease could be indicated at eGFRs of less than 60 ml/min/1.73m2. Kidney Failure is indicated at less than 15 ml/min/1.73m2 Performed By: #### 1 [id number], [id number], [id number] ####[facility] (DEFAULT)[address] [place] [address] Anion gap [Moles/Vol] 14.0 mmol/L Normal 5.0-19.0 [facility] Comment on above: Performed By: #### 1 [id number], [id number], [id number] ####[facility] (DEFAULT)[address] [place] [address] Calcium [Mass/Vol] 9.6 mg/dL Normal 8.9-10.3 [facility] Comment on above: Performed By: #### 1 [id number], [id number], [id number] ####[facility] (DEFAULT)[address] [place] [address] Chloride [Moles/Vol] 102 mmol/L Normal 101-111 [facility] Comment on above: Performed By: #### 1 [id number], [id number], [id number] ####[facility] (DEFAULT)[address] [place] [address]777 CO2 [Moles/Vol] 25 mmol/L Normal 21-32 [facility] Comment on above: Performed By: #### 1 [id number], [id number], [id number] ####[facility] (DEFAULT)[address] [place] [address]402 Creatinine [Mass/Vol] 0.72 mg/dL Normal 0.60-1.[address] [facility] Comment on above: Performed By: #### 1 [id number], [id number], [id number] ####[facility] (DEFAULT)[address] [place] [address]94 Glucose [Mass/Vol] 100.0 mg/dL Normal 74.0-118.0 [facility] Comment on above: Performed By: #### 1 [id number], [id number], [id number] ####[facility] (DEFAULT)[address] [place] [address] Osmolality 275 mOsm/L Invalid Interpretation Code [facility] Comment on above: Performed By: #### 1 [id number], [id number], [id number] ####[facility] (DEFAULT)[address] [place] [address] 22872 Potassium [Moles/Vol] 3.4 mmol/L Low 3.6-5.[address] [facility] Comment on above: Performed By: #### 1 [id number], [id number], [id number] ####[facility] (DEFAULT)[address] [place] [address] Sodium [Moles/Vol] 138.0 mmol/L Normal 136.0-144.[address] [facility] Comment on above: Performed By: #### 1 [id number], [id number], [id number] ####[facility] (DEFAULT)[address] [place] [address] Urea nitrogen [Mass/Vol] 10 mg/dL Normal 8-26 [facility] Comment on above: Performed By: #### 1 [id number], [id number], [id number] ####[facility] (DEFAULT)[address] [place] [address] Urea nitrogen/Creatinine [Mass ratio] 14.0 mg/mg Normal 4.6-16.2 [facility] Comment on above: Performed By: #### 1 [id number], [id number], [id number] ####[facility] (DEFAULT)[address] [place] [address] CBC w/ Auto Diffon Erythrocyte distribution width (RBC) [Ratio] 14.6 % Normal 11.5-15.0 [facility] Comment on above: Order Comment: CBC C LOTTED. PATIENT CALLED BACK FOR RECOLLECT. Performed By: #### 1 [id number], [id number], [id number] ####[facility] (DEFAULT)[address] [place] [address] Hematocrit (Bld) [Volume fraction] 35.0 % Normal 33.7-40.4 [facility] Comment on above: Order Comment: CBC C LOTTED. PATIENT CALLED BACK FOR RECOLLECT. Performed By: #### 1 [id number], [id number], [id number] ####[facility] (DEFAULT)[address] [place] [address] Hemoglobin (Bld) [Mass/Vol] 11.0 g/dL Low 11.3-15.9 [facility] Comment on above: Order Comment: CBC C LOTTED. PATIENT CALLED BACK FOR RECOLLECT. Performed By: #### 1 [id number], [id number], [id number] ####[facility] (DEFAULT)[address] [place] [address] Instr WBC 8.6 x10 Invalid Interpretation Code [facility] Comment on above: Order Comment: CBC C LOTTED. PATIENT CALLED BACK FOR RECOLLECT. Result Comment: CBC RECOLLECTED @ 08/12/2021 15:15:27 EDT BY MHDMITCHELL. GILMORE. Performed By: #### 1 [id number] ####[facility] (DEFAULT)[address] [place] [address] Man Diff? Auto Normal [facility] Comment on above: Order Comment: CBC C LOTTED. PATIENT CALLED BACK FOR RECOLLECT. Performed By: #### 1 [id number], [id number], [id number] ####[facility] (DEFAULT)[address] [place] [address] MCH (RBC) [Entitic mass] 25 pg Normal 24-34 [facility] Comment on above: Order Comment: CBC C LOTTED. PATIENT CALLED BACK FOR RECOLLECT. Performed By: #### 1 [id number], [id number], [id number] ####[facility] (DEFAULT)[address] [place] [address] MCHC (RBC) [Mass/Vol] 31 g/dL Normal 26-[address] [facility] Comment on above: Order Comment: CBC C LOTTED. PATIENT CALLED BACK FOR RECOLLECT. Performed By: #### 1 [id number], [id number], [id number] ####[facility] (DEFAULT)[address] [place] [address] MCV (RBC) [Entitic vol] 79 fL Low 81-100 [facility] Comment on above: Order Comment: CBC C LOTTED. PATIENT CALLED BACK FOR RECOLLECT. Performed By: #### 1 [id number], [id number], [id number] ####[facility] (DEFAULT)[address] [place] [address] Platelet 491 x10 High 138-427 [facility] Comment on above: Order Comment: CBC C LOTTED. PATIENT CALLED BACK FOR RECOLLECT. Performed By: #### 1 [id number], [id number], [id number] ####[facility] (DEFAULT)[address] [place] [address] Platelet mean volume (Bld) [Entitic vol] 9.4 fL Normal 6.3-10.2 [facility] Comment on above: Order Comment: CBC C LOTTED. PATIENT CALLED BACK FOR RECOLLECT. Performed By: #### 1 [id number], [id number], [id number] ####[facility] (DEFAULT)[address] [place] [address] RBC 4.41 x10 Normal 3.70-5.30 [facility] Comment on above: Order Comment: CBC C LOTTED. PATIENT CALLED BACK FOR RECOLLECT. Performed By: #### 1 [id number], [id number], [id number] ####[facility] (DEFAULT)[address] [place] [address] WBC 8.6 x10 Normal 3.5-10.5 [facility] Comment on above: Order Comment: CBC C LOTTED. PATIENT CALLED BACK FOR RECOLLECT. Performed By: #### 1 [id number], [id number], [id number] ####[facility] (DEFAULT)[address] [place] [address] MRI Knee w/o Lefton 07-27-19 MRI Knee [...] Michael Pappas on 07/28/[address] [facility] Operations Coordinator BASIC METABOLIC PANELon - BUN/CREATININE RATIO NOT APPLICABLE Normal - [facility] Comment on above: Order Comment: FASTI NG:YES FASTING: YES Performed By: #### 1 [id number] #### [facility] [address], [address] [place] [address] Transmission Supervisor: Heraclio Miller MD Calcium [Mass/Vol] 9.0 mg/dL Normal 8.6-10.4 [facility] Comment on above: Order Comment: FASTI NG:YES FASTING: YES Performed By: #### 1 [id number] #### [facility] [address], [address] [place] [address] Transmission Supervisor: Heraclio Miller MD Chloride [Moles/Vol] 106 mmol/L Normal 98-110 [facility] Comment on above: Order Comment: FASTI NG:YES FASTING: YES Performed By: #### 1 [id number] #### [facility] [address], [address] [place] [address] Transmission Supervisor: Heraclio Miller MD CO2 [Moles/Vol] 27 mmol/L Normal 20-32 [facility] Comment on above: Order Comment: FASTI NG:YES FASTING: YES Performed By: #### 1 [id number] #### [facility] [address], [address] [place] [address] Transmission Supervisor: Heraclio Miller MD Creatinine [Mass/Vol] 0.73 mg/dL Normal 0.50-1.05 [facility] Comment on above: Order Comment: FASTI NG:YES FASTING: YES Result Comment: For patients >49 years of age, the reference limit for Creatinine is approximately 13% higher for people identified as -Martiniquais. Performed By: #### 1 0165 #### [facility] [place] [address] Transmission Supervisor: Heraclio Miller MD eGFR NON-AFR. HONG KONGER 96 mL/min/1.73m2 Normal > OR = 60 [facility] Comment on above: Order Comment: FASTI NG:YES FASTING: YES Performed By: #### 1 0165 #### [facility] [place] [address] Transmission Supervisor: Heraclio Miller MD GFR/1.73 sq M.predicted among blacks MDRD (S/P/Bld) [Vol rate/Area] 111 mL/min/{1.73_m2} Normal > OR = 60 [facility] Comment on above: Order Comment: FASTI NG:YES FASTING: YES Performed By: #### 1 0165 #### [facility] [place] [address] Transmission Supervisor: Heraclio Miller MD Glucose [Mass/Vol] 85 mg/dL Normal 65-99 [facility] Comment on above: Order Comment: FASTI NG:YES FASTING: YES Result Comment: Fasting reference interval Performed By: #### 1 0165 #### [facility] [place] [address] Transmission Supervisor: Heraclio Miller MD Potassium [Moles/Vol] 3.7 mmol/L Normal 3.5-5.3 [facility] Comment on above: Order Comment: FASTI NG:YES FASTING: YES Performed By: #### 1 0165 #### [facility] [place] [address] Transmission Supervisor: Heraclio Miller MD Sodium [Moles/Vol] 140 mmol/L Normal 135-146 [facility] Comment on above: Order Comment: FASTI NG:YES FASTING: YES Performed By: #### 1 0165 #### [facility] [place] [address] Transmission Supervisor: Heraclio Miller MD Urea nitrogen [Mass/Vol] 12 mg/dL Normal 7-25 [facility] Comment on above: Order Comment: FASTI NG:YES FASTING: YES Performed By: #### 1 0165 #### [facility] [address], [address] [place] [address] Transmission Supervisor: Heraclio Miller MD Coding Summaryon 01-28-2021 Coding Summary HTMLBase 64 FuimbzdaRLk2wPh+PGhlYW Q+CE5CJAQhT93qeJAawV2K I2jBYB9JGTSNTGSEYX3DKB 9drAS8JXelW9PlyvUi GqqzvQOnDL66FSk3DOH3kS ugYVqipI8kcNQoB8o1FvXz NF47yE90MIciNYHcWwH0Ba ZpbjsgbWFy K3emUpEzkISiKds+PHRhYm xlIHdpZHRoPScxMDAlJyBz mOzmTY5sHj1gOSKuESZfoC xhcHNlOiBj t9xtPAVpBDxuHY5haRagJ3 QxgTW6SNXjf9a6Fa13yPG+ ZCSkGVF0aGhrDSokl869Gl Tns6uaGNS1 qEAnQJoqEKV6O76ni3I3EU YcMERkGNE3uTH1nX3sdBwa rrnoW6QidVGkOcR3JPX2oN RvzR8zmVzo hawglK3cRyt+A89TDT3JRV PZDM8ENhc0L7OrLwrevDB+ JT76XEMkYF34tSZziLJvd9 vofFf0AoCf RZWbKTX5lTwpOXoar1PgBX JcU97atXOyv0B8IZYrmOpx iNEwIcZgtZN7zC6zLMcigu fcj4wasyoz Cezky6prmt51zL58K40iKB qgTKOuPXK1SXCzDZShaLik ao7tfH6zDo2+QXtfk2vlg7 meiFf7TlOo PYPwkkJmuOboLBL2p3ApMm 60L8NwiYgpn3SoSiv5an25 fDRcb1W8lFD5DYjrSSWvmL 4rVRdxNnB9 EDPuOyCfuF08lRJvVHpqHx 0vsYgzsQenEC6qIWBuvjek IBCvbG1bYEHshRZgzMzvYY 4wNTBpbjtm c159LlKpGIA3RROakVQiU3 IyqI6rYlQsSNBgGQLaA9Ca vSEvRVvtF145EOnlLzP0GB TjdiVpT4Cc GJKkhLrbQyF2n6R5Tv8Ym6 RepensDFA0OEgoZBOvDgT1 RuNbOcN6Y3SrWpe4WYLkkH zgVW8nI9Je SQNqccfebxtkoKH4JXBgSN ZvlF75cANkFFdfZr4aj7O0 r202IHHiVGLnqX23Xl6gxQ ogMTBwdCBU iR3ejivgi6msnrziXrItRQ IbUOi1TPp4PEPyfMzpZhOk TRV6YlJ5MCW9vBYziM1lvC xmiewxzP2v Oyc+H42cfD1tEBB7UWV8he ktCMBzxdPoWG59RF95Q7Jl PjwvdGFibGU+PGRpdiBzdH cfCR2aPzCe e3uxk7QjOGdpG0XdQCUzAG umQvo0KQNcDAI7dUN3tR1e BJEoRLmtx8W6kGS4K9Xzxh Boot1pn7xo QGOwXIvgX92dpAUxt2E5PT VqyIO5QFYssAchGwRnsE15 Oyc+TZVccPqdq1ZdCsfgz6 nsd5jxrGh4 SvRqIZGiflZphSuhYAE8x1 EzDq34Z95pRNvsMIJwDDVb CTPpWZWxhHudqm4ugY6fTa 8+PGNvbCB3 xSO1xC5eHHVqYyU3BXbvO3 85XtGypRNpJqiad2ayu5qd aEr9UvXrIMQgumTjhCpyFV A6e7KuEv09 O47rSWipSHAbUXQnPPGvOV YphTcond7guC9sZq3+PC9j m8zdqs49eL93sTY+PHRkIH A6ySkuHAne CVRqfE4oHGqtHxI0YDFiLc EosS39hHExFSydWp5dhIjb qRhfNC7iXCFjkcicp870He Ouu5hsZPFq kCBcMQkwNEL2Q08lk7H7XB KxYZMmGLP9dTZ9rA4asQqc bjogbGVmdDsgdmVydGljYW bqRBpgP458 IHRvcDsnPlBhdGllbnQgTm NzORo1J3MyFyv5LEKngRho UW6dbUTqIUovJn7uvOfxlL krJP6jOGOw hxbyv511HiOay9ujXWPdbP PxJPphOYD4U68bk8Z1FLIq WIKfDXK3eNH0wB5dnQfqek ogbGVmdDsg odEqpGukTAohNIxgB742PH RvcDsnPkJpcnRoIERhdGU6 DT35YR15rMWrr4L0kKJ9P8 BhZGRpbmct norriZL8HMNuFGPtlS45Zs 6dpAryMx5hAEBxXYA5YZGz mVYyL0JkaT8cXzXfJCCpPW GmB2HsxAYe CFoiN266LQenPkP2HETltx TcZ4IaVUZupDqcYpG0x3T4 Pd5UD2C5PJ05GH20pTMoz2 R7gRG8K2Nd DHOiewhwusctaCN9YHTjEY IraI56Rx2nwYhtJa3wHLRx RLP0AHRqtORiY0SacH0xBc AjMDAwMDAw P6GzoDFzHAtzJ902VZosJn D7FMVnrwKdN1SaGVCznNrm IrR2p7J8Bh8UDJl6NK93EY 16vQDcr4D0 nVK5T3YvZTSsccqmuhoxuH G3TEVmGMZfmP64Eg8umYsj Hk5oMEZzAWO9RGHmjOHzS8 WnrB8pVdCb LVZwURZpA5BdyARgJYlbL3 01ADpzWeP1FONqzxBoU3Ln JZEqzFxrNtD6w4X3Cw2GRJ NhHR05XTL0 oZF2ER36GK81L6MdTdrkkP FibGU+PHRhYmxlIHdpZHRo ONlgEIRmAbIpzVfnER1qNs 9yZGVyLWNv gDkdkYEvEzFmu9uvGZSlCS nfXP0ybBmtJ3UftCQ0XKDs s7l3Cx94W76mG6SwtUB+PG CvuQS6eWR1 lP2aYzBaKuE8OWpkP930Vx HgdJNuGwtyy0pjp5vkcZz9 XnG3WYEjsmPjxYbuHUF3q2 ZqWs99K73h IHdpZHRoPSIxNSUiIHZhbG gmxu6poV7dGo3+PGNvbCB3 sSW1lP0dZdTzPmK4MZvtD5 49InRvcCIv Yzxsg0xtd1ptlBe7PwAkRR LwvlShzHdkRNF0q6WpAh90 Z7SgnXtju7TyPdc2ic33lR Dub3X2fLE7 K4DgNNTlylgosTBudAzmKL 4lWSEqtjxzKTCqfP5aHOIs P6x5TeAhVdH8YNvvW4Xixj B0BVJecZMr FJrcZDU9R15to7X8UBNbZO KqJXH1eHO7lI4lrDgjupaa bGVmdDsgdmVydGljYWwtYW dhY381JPOp oUjiHIUriY2aEVBqyMAtqL rrOM2tHNWavrtoXrhWWR2M TiwgRUxJWkFCRVRIIEFOTj wvdGQ+PHRk RUG5wYflBBhpHUIotW6uTE TwI0t7GyWpJfL3KZkuC7Xp EMXpjplzOz65sT8uCaMoLl L7ESlaN1Av sxK4PUMjzRCoYSmnRKG5U5 4mn6T4DHXqTNVqRIX2tBU9 vC5quCdyojfcdCVoiIeafi VydGljYWwt KQsnK510VZSmnQtsPeC2Yz EpMqF9QtJ2Y4GbJzh2CSBu jYvyNM0luLXgWIecOk6qlT cjrCxbLJ5s CYJgyjnkWQAmpK1yCHGrsK OioTerET0aXEGgqvahr244 YqNzSCK1QVGdjCPtD9SbzU 9yOiAjMDAw ISZkA1RljDVkIVidO079XT ikYbF1YYKvkzWbG5DbWEEm eLihWjX8x6P3Gg24WGHLSF FyczwvdGQ+ DPMiORI4cVavARebARIhbO 0aQOMxP4z2GdQhThV3HNva T4DaLBZfhenwSf45mK7nAn HjMtL4JBko L5AgqaV1QOMwvUEtJFhsLF N9W41ek6W3OKBmPLRyRZL7 pTA9zM7qwMshvnsekJVwtP sgdmVydGlj YOetKUbtZ422YFXuyZisWh ZFTUFMRTwvdGQ+PHRkIHN0 fEupXPlmTKSddF5nGAPnW2 n3QyWbGnO1 UIauM1WqMEPakveuFp30aC 8tTmNeOxR5GTymL5OdpqM6 WIRkfJEpWSrcHIC3Z77kc6 B2EISyQJIp DGT1oCQ8vA2kyMplrahqrE VmdDsgdmVydGljYWwtYWxp X102JMIluVchQfOxpLFNfV OlUXX3HC35 CV25E1RlRcebeMBxkMW+PH RhYmxlIHdpZHRoPScxMDAl QtQafPkvLW4dMb1rOWBhZI NvbGxhcHNl VjCbj1luRGCsEBkjOF0szT fnL0VgaCU7BQGmg2r0Zg97 S74qQ5HwvOQ+VZRgcQR3kJ P9cW0nLmHj NqN9ROkuM510FzFtbTCnOr mqm1jvr5zwgUu0PvEaVRVm kmKylCviHHQ4h1YfIi82E0 9sIHdpZHRo QJPvICYnHIUgvMzzmt0ufE 9wIi8+MJTivTG3pLJ3jW8c PsVrUvV4HRuvZ716CfZhcO ImRhrfZ14f G8SunBF+QDDzZjk8ZDUkrT xbDD8taYGfVQjoVg2wIBC7 XoZaFnCsQTmtH9ByQMXcmh ctcmlnaHQ6 HPVyEPNfoP79Ak3lzCulHc 6eWEWqVBS9VESflALsZ0Ye wO8eZvDvEMMhLQJkF7FgcP JgCZubW774 XFdhViV0GOGlbpNcC1FeSH FpoVmnFwC1v2X3Jw3VqQsg hPEkIU7mGbRaLWb0V8QyOm q2KVDudEye LP3udSBeGHcxBf2hoWtawK nfKB0jFQPhcgfba837XrEf z0vzLELxgSTpKGvyTBK7Z8 5sd9A7KCMz BLRaYJJ3vFS1rG5bcAmlfh ogbGVmdDsgdmVydGljYWwt XAtlF538ZJWvhWvfWdZDBw x5P3HxSqp0 VYXjdHyfBE9tgLZvECdoQz 9tfAdmdZfyEO3vIIJfdkym j834TlCsv4raLLZvpMBqRK gaSCD5D20o i6V7MEJnQMWoRAW6pRX4zE 1hbGlnbjogbGVmdDsgdmVy tGyoQHkiRYxmQ663SHYygH yqHr3OXrg0 N6ToEpf8BANmaXocIT8epY OuLZobAc5exNzmiBidSM6r MDMlwzsvw016BmVqw0fvYN EwcHQgVGlt WNQ1G45fa8A8HVFeSLAvXF G4bSY6yT6soHrwwgfppRWq dDsgdmVydGljYWwtYWxpZ2 46IHRvcDsn PlBheWVyOjwvdGQ+PC90cj 80C1XaXyyiYve8BMKqJKC7 hAP8fE1oGKCoAZdqw4N0zL R9H7NhbzMs ci1 (more content not included)... [facility] Consent Formson 01-23-2021 Consent Forms [id number]#1.0 [facility] MAGR PACU Record MAGR PACU Record Summary Primary Physician: Hua Oglesby DO Finalized Date/Time: 01/23/21 13:00:07 Pt. Name: ALMA DELIA IKESD [place]/Sex: 1970 FEMALE Med Rec #: [id number] Physician: Hua Oglesby DO Financial #: [id number] Pt. Type: D Room/Bed: / Admit/Disch: 01/21/21 06:05:01 - 01/21/21 10:08:00 Institution: PACU Case Times MAGR Entry 1 In PACU I 01/21/21 08:20:00 Discharge from PACU 01/21/21 09:04:00 I Last Modified By: Lisa Connell RN 01/23/21 13:00:04 Finalized By: Lisa Connell RN Document Signatures Signed By: Lisa Connell RN 01/23/21 13:00 [facility] Consent Formson 01-22-2021 Consent Forms [id number]#[id number] [facility] Discharge Instructions [id number] [facility] Telemetry Stripson Telemetry Strips [id number]#1.[address] [place] [address] Anesthesia Noteon 01-21-2021 Anesthesia Note Patient: IKE [...] on: 01/21/2021 08:25 EST] Gen Jean MD [facility] Anesthesia Note Patient: IKE FLANNERY Age: 50 [...] All Problems HTN (hypertension) / SNOMED CT 2313783658 / Confirmed Histories Family History: No family history items have been selected or recorded. Procedure history: Abdominal hysterectomy (813820373). Arthroscopy of knee (304753625). Lipoma ([id number]). Comments: 01/04/2021 11:19 OSKAR Becker RN, Milana [...] Results ECG interpretation: Within normal limits. Plan [place] Society of Anesthesiologists#(ASA ) physical status classification: Class II. Anesthetic Preoperative Plan Anesthesia: General. . Anesthetic plan, risks, benefits, and alternatives discussed with the patient and/or family. Patient verbalized understanding. Family/Guardian present. Informed consent was given. Consent was signed by the patient. [Electronically Signed on: 01/21/2021 07:10 EST] Gen Jean MD [Verified on: 01/21/2021 07:10 EST] Gen Jean MD Normal [facility] Inpatient Patient Summaryon 01-21-2021 [place] [address] Patient Discharge Instructions Name: NICCHENIKE : 1970 Patient Address: [address] [place], [place] [id number] Primary Care Provider: Name: RANDY CALLE After you are discharged if you find you have any questions, please, call [phone] ext [phone] to speak to a nurse. Discharge Diagnosis: [...] alcohol and/or drug addiction problems; contact the [facility] 22/09 Crisis Hotline -Text 4HQBP vo [phone]. If you received any narcotics, sedation, or [...] business decisions or sign any legal documents [facility] would like to thank you for allowing us to assist you with your healthcare needs. The following includes patient education materials and information regarding your injury/illness. IKE FLANNERY has been given the following list of follow-up instructions, prescriptions, and patient education materials: Follow-up Instructions With: Address: When: MYESHA VINSON [address] [place] [address], [address] [place] [address] Business (1) 01/30/2021 11:00 AM With: Address: When: [place] [address] [facility] (1) Medications During the course [...] or concerns, please call the office at [phone] Viruses or Bacteria What?s got you sick? [...] (except strep) (more content not included)... Normal [facility] MAGR Intraoperative Recordon 01-21-2021 MAGR Intraoperative Record MAGR Intra-Op Record Summary Primary Physician: Hua Oglesby DO Finalized Date/Time: 01/21/21 11:10:34 Pt. Name: LAMA DELIA IKE LEIGH [place]/Sex: 1970 FEMALE Med Rec #: [id number] Physician: Hua Oglesby DO Financial #: [id number] Pt. Type: D Room/Bed: / Admit/Disch: 01/21/21 [...] Role Performed Surgeon - Primary Anesthesiologist of [place] Record Time In 01/21/21 07:22:00 01/21/21 07:22:00 01/21/21 07:22:00 Time Out 01/21/21 08:17:00 01/21/21 08:17:00 01/21/21 08:17:00 Procedure Arthroscopy Knee(Right) Arthroscopy Knee(Right) Arthroscopy Knee(Right) Last Modified By: Dorothy Archer RN, Barbara RN Long, Barbara RN 01/21/21 08:21:11 01/21/21 08:21:11 01/21/21 08:21:11 Entry 4 Entry 5 Case Attendee Nemo Mendez CST, Regina CST Role Performed Scrub Personnel Machine De[place]rer Time In 01/21/21 07:22:00 01/21/21 07:22:00 Time [...] N/A imaging displayed? Last Modified By: Dorothy Arcehr RN 01/21/21 07:54:47 Patient Positioning MAGR Pre-Care [...] Post-Care T (more content not included)... Normal [facility] MAGR Postoperative Recordon 01-21-2021 MAGR Postoperative Record MAGR Phase II Record Summary Primary Physician: Hua Oglesby DO Finalized Date/Time: 01/21/21 10:17:55 Pt. Name: IKE FLANNERY/Sex: 1970 FEMALE Med Rec #: [id number] Physician: Hua Oglesby DO Financial #: [id number] Pt. Type: D Room/Bed: / Admit/Disch: 01/21/21 [...] Signed By: Marianna Gerber RN 01/21/21 10[facility]17 [facility] Preoperative Record MAGR Pre-Op Record Summary Primary Physician: Hua Oglesby DO Finalized Date/Time: 01/21/21 08:40:07 Pt. Name: IKE FLANNERY/Sex: 1970 FEMALE Med Rec #: [id number] Physician: Hua Oglesby DO Financial #: [id number] Pt. Type: D Room/Bed: / Admit/Disch: 01/21/21 [...] By: Gino Painter RN 01/21/21 08:40 Normal [facility] Operative Report - Surgeon/P aster 01-21-2021 [...] on: 01/21/2021 10:16 EST] Hua Oglesby DO [facility] Patient Handouton 01-21-[address] FINK [...] or concerns, please call the office at [phone] Normal [facility] COMPREHENSIVE METABOLIC PANE [place] 01-12-2021 Albumin [Mass/Vol] 4.3 g/dL Normal 3.6-5.1 [facility] Comment on above: Performed By: #### 7 600, [id number] #### [facility] of [address], [address] [place] [address] Transmission Supervisor: Heraclio Miller MD Albumin/Globulin [Mass ratio] 1.8 {ratio} Normal 1.0-2.5 [facility] Comment on above: Performed By: #### 7 600, 54051 #### [facility] [address], [address] [place] [address] Transmission Supervisor: Heraclio Miller MD ALP [Catalytic activity/Vol] 60 U/L Normal 37-153 [facility] Comment on above: Performed By: #### 7 600, 99463 #### [facility] of [address], [address] [place] [address] Transmission Supervisor: Heraclio Miller MD ALT [Catalytic activity/Vol] 17 U/L Normal 6-29 [facility] Comment on above: Performed By: #### 7 600, 56196 #### [facility] [address], [address] [place] [address] Transmission Supervisor: Heraclio Miller MD AST [Catalytic activity/Vol] 18 U/L Normal 10-35 [facility] Comment on above: Performed By: #### 7 600, 47051 #### [facility] [address], [address] [place] [address] Transmission Supervisor: Heraclio Miller MD Bilirubin [Mass/Vol] 1.1 mg/dL Normal 0.2-1.2 [facility] Comment on above: Performed By: #### 7 600, 06133 #### [facility] of [place] [address] Transmission Supervisor: Heraclio Miller MD BUN/CREATININE RATIO NOT APPLICABLE Normal 6-22 [facility] Comment on above: Performed By: #### 7 600, 75445 #### [facility] [address], [address] [place] [address] Transmission Supervisor: Heraclio Miller MD Calcium [Mass/Vol] 9.3 mg/dL Normal 8.6-10.4 [facility] Comment on above: Performed By: #### 7 600, 59396 #### [facility] [address], [address] [place] [address] Transmission Supervisor: Heraclio Miller MD Chloride [Moles/Vol] 105 mmol/L Normal 98-110 [facility] Comment on above: Performed By: #### 7 600, 71766 #### [facility] of [address], [address] [place] [address] Transmission Supervisor: Heraclio Miller MD CO2 [Moles/Vol] 28 mmol/L Normal 20-32 [facility] Comment on above: Performed By: #### 7 600, 60879 #### [facility] [place] [address] Transmission Supervisor: Heraclio Miller MD Creatinine [Mass/Vol] 0.86 mg/dL Normal 0.50-1.05 [facility] Comment on above: Result Comment: For patients >49 years of age, the reference limit for Creatinine is approximately 13% higher for people identified as -Martiniquais. Performed By: #### 7 600, 34463 #### [facility] [place] [address] Transmission Supervisor: Heraclio Miller MD eGFR NON-AFR. [place] 79 mL/min/1.73m2 Normal > OR = 60 [facility] Comment on above: Performed By: #### 7 600, 71223 #### [facility] of [address], [address] [place] [address] Transmission Supervisor: Heraclio Miller MD GFR/1.73 sq M.predicted among blacks MDRD (S/P/Bld) [Vol rate/Area] 91 mL/min/{1.73_m2} Normal > OR = 60 [facility] Comment on above: Performed By: #### 7 600, 99264 #### [facility] [place] [address] [place] [address] Transmission Supervisor: Heraclio Miller MD Globulin (S) [Mass/Vol] 2.4 g/dL Normal 1.9-3.7 [facility] Comment on above: Performed By: #### 7 600, 29044 #### [facility] [place] [address] Transmission Supervisor: Heraclio Miller MD Glucose [Mass/Vol] 86 mg/dL Normal 65-139 [facility] Comment on above: Result Comment: Non-fasting reference interval Performed By: #### 7 600, 77957 #### [facility] [place] [address] Transmission Supervisor: Heraclio Miller MD Potassium [Moles/Vol] 3.9 mmol/L Normal 3.5-5.3 [facility] Comment on above: Performed By: #### 7 600, 60142 #### [facility] [place] [address] Transmission Supervisor: Heraclio Miller MD Protein [Mass/Vol] 6.7 g/dL Normal 6.1-8.1 [facility] Comment on above: Performed By: #### 7 600, 23843 #### [facility] [place] [address] Transmission Supervisor: Heraclio Miller MD Sodium [Moles/Vol] 140 mmol/L Normal 135-146 [facility] Comment on above: Performed By: #### 7 600, 83207 #### [facility] of [place] [address] Transmission Supervisor: Heraclio Miller MD Urea nitrogen [Mass/Vol] 15 mg/dL Normal 7-25 [facility] Comment on above: Performed By: #### 7 600, 02547 #### [facility] [place] [address] Transmission Supervisor: Heraclio Miller MD LIPID PANEL, [facility] 11- Cholesterol [Mass/Vol] 173 mg/dL Normal <200 [facility] Comment on above: Order Comment: FASTI NG:NO FASTING: NO Performed By: #### 7 600, 11455 #### [facility] [address], [address] [place] [address] Transmission Supervisor: Heraclio Miller MD Cholesterol in HDL [Mass/Vol] 69 mg/dL Normal > OR = 50 [facility] Comment on above: Order Comment: FASTI NG:NO FASTING: NO Performed By: #### 7 600, 71202 #### [facility] [address], [address] [place] [address] Transmission Supervisor: Heraclio Miller MD Cholesterol in LDL [...] LDL-C. Campos CAMARENA et al. MARQUISE. 2013;310(19): 6978-8609 (http://education.TapFunder/faq/XTV359) Performed By: #### 7 600, 40736 #### [facility] [address], [address] [place] [address] Transmission Supervisor: Heraclio Miller MD Cholesterol.total/Cho lesterol in HDL [Mass ratio] 2.5 {ratio} Normal <5.0 [facility] Comment on above: Order Comment: FASTI NG:NO FASTING: NO Performed By: #### 7 600, 71704 #### [facility] [address], [address] [place] [address] Transmission Supervisor: Heraclio Miller MD NON HDL CHOLESTEROL 104 mg/dL (calc) Normal <130 [facility] Comment on above: Order Comment: FASTI NG:NO FASTING: NO Result Comment: For patients with diabetes plus 1 major ASCVD risk factor, treating to a non-HDL-C goal of <100 mg/dL (LDL-C of <70 mg/dL) is considered a therapeutic option. Performed By: #### 7 600, 84177 #### [facility] [address], [address] [place] [address] Transmission Supervisor: Heraclio Miller MD Triglyceride [Mass/Vol] 68 mg/dL Normal <150 [facility] Comment on above: Order Comment: FASTI NG:NO FASTING: NO Performed By: #### 7 600, 94882 #### [facility] [address], [address] [place] [address] Transmission Supervisor: Heraclio Miller MD Coding Summaryon 01-09-2021 Coding Summary HTMLBase 64 CdsabzthMBa6rXw+PGhlYW Q+TV4PVLBfU53apRPxoP3Z K9cTAC3YEZWJDCMGMQ9WXU 5ysIX4ZRkaY1ZjpfZt QovypQBhFJ14IEi6DRX0iO yqGMlrsI6llYCtI8m0WhJx OV52hJ99APpnZAHkPnC4Mx ZpbjsgbWFy L6vxVtVhsLVtEwh+PHRhYm xlIHdpZHRoPScxMDAlJyBz jNhzGH3pJe2eCOMuPNNrcE xhcHNlOiBj b3ufTDFyDCeiQM8viFvmV1 YnpUO5BBIml6r2Pz11cRB+ SUCgHEW0eCctZCtjo641Yr Kic4xyAXN9 oXLaAGmwAFC6D74vz0T1AX OqHKBpPDS7tJB0bW9ywKyy wtkfA1ObxWTtYsN6CWL6lD PjcD3zcGfx ayoznW4lSqo+W39SXY9SWY ZYCB5FMta1L2IiPkkbjXJ+ EF77LNOxWZ46pPIahRQdp6 rxlGq6QgAa BOFcHMQ7xQeqURusi7NpKN OiS13ehVAxy3E6DXGkdMbc nRMoTtFkbBX3rF3zYYknmp xdr8tlwquw Fuxbb9btfe00yV22N15gMC pdYTQgXPL0GBAbHMUriYra cb9ufU9kAg3+ZPsbe1azz4 wriNh0RaWq JGWejhUryTibSNZ1x9MyQj 01D7SqxWbav6SrFvz9lf02 uQLoa8H9zDS1TZplLDAoiU 4qNNhyVgM6 SMSrFuIccN34hMAxBZzoSi 4slSyziWafPZ8sMZYkaaqg NBOnnO2eCECamQAzxDouCH 4wNTBpbjtm s098PeYrNEI2OEUlbIRpE0 IbaM8xRoDmDQPqXRUrF3Kd bJFyUThxN750WZvtGyS5VO KpoyFzV3Fb UAXpnRktNhO2k9Y2Hu4Ej4 PoyzitXTS0DNevFSGxMyXc EqTrInR9C3LbUah5AQBsuK jrFN1iO4Mz USLhmoiiikimcZU1CHToUQ XakJ25xIQxUJruOl7nq2C9 l825MDNjZCIfdT70Pl5jyP ogMTBwdCBU uI5pjvqog3rsiiyjKzJuUM GzJLp7KJz0VATevUbwGbHa ZDA3KbJ9TOJ6zBYagL8pnY nlqhwlvR6m Oyc+X20ztL7oYSU4NDG9ld nuTCGskvSqEW81GO32Q0Va PjwvdGFibGU+PGRpdiBzdH apVO5dWkEd k2ljq5AiUMwjT2XgZUXrMP acArm7NDRmLQM3jDE8yJ1r DBXqUCmuz6Q0sNC7L0Fysc Tnnb0lw4zp JSDuANqaE60mrBTdo2Y7GQ GlbVJ0GVTcmLjtYfKluF18 Oyc+INVdcOirb7BzKasdw8 eau2nptGh8 OxBlNIHwguCxmUurPGU5c7 LeCh29I32jZZflFBUyEVNa TPWwVNGkxWqrat7nyB9pPy 8+PGNvbCB3 bNP5sY9hTSMoNiI6LEqaO7 08CeUmtXLaDuqta8lip6al jCq2QyKxJCNwnmIjfGwhZB S8y2QcZr36 T00yLTiqZFZhJPDmDOFfZM LmnUxxnl5koT3uPi4+PC9j d2qlop62dV67tMD+PHRkIH A1eTvmYQzg BDHnuV4jXWkbCkK1TUCnCt PptR55dRYwAEnuYl1axOen jRuzGP3jTNEwzurmp598Sf Sew2tdRCBu eFMySAsqZUR7X66ug9S4QM ApHZSyUGB9pBS5fD4wtJca bjogbGVmdDsgdmVydGljYW oqNSflS758 IHRvcDsnPlBhdGllbnQgTm JwBVh8S6LoBmi3VHCcxAdk SZ6gvZTgLRnwVr4kyEfzuM szIC0bKECj rngsx761HbRay3shIMEwpZ XjZWiaCIO7K71qq2F5GNOk XKClCHR6cTM0uD4tjIcptd ogbGVmdDsg ctDdkNkpAMdtYYfzP872WG RvcDsnPkJpcnRoIERhdGU6 RH42RW01aZGoz5Z2kCE7Y9 BhZGRpbmct kbrbaNH3SSIhQAAhjC17Ux 7ccYvtCl7hVHRpMZT1FEJs zVOvC8EolY8rVdNzYLAxKN FuM6FsaCDg BQdhI849GPqyGxI3RGQkra YfQ2WmCPIkdZivVtJ9d4O6 Lz1FU7B8KP08MO70rHLiz1 V4rGD0E9Gi KZGimqptsidfsTP7HLYyNP BifJ27Tr3aqMmfPj6bUDGw GSN9MOObhVOgU9WuaM1yNn AjMDAwMDAw N9PveQWdYJbcD069UZvfIk V9DKHpkvDkQ2ZnLOTmyIlq IkI7a5N8Cx5TCOm5FF96KB 86qCXej2Q8 xUQ1V3ViNOSttbrkamskmJ S5QOUrBZGskR16Rx3kpBwr Nl2gPWAlMPP5LRExaTYlS1 HpfN8aQnIp PMYgZYOjN2TtjCGnLWogU9 38TPuxTtJ0QELrjqHuG6Pb QEJxjSmrWdV8y0M3Ew7XPM MrLR30PBR6 hLG3TM01SK26J9OlYjomaS FibGU+PHRhYmxlIHdpZHRo BEovCIQxElClpVaoQG1uNs 9yZGVyLWNv xJyrzZBmFmVpx6tzGBTlBC tvQR5ixEfpC3WdcVP7BPJt a8o2Ii56N52lM8JbrRD+PG UonBW1uYG2 sN8cJbIyIqD9UDiwR972Ok BvtFKbCjskq0vre8ohvUp7 XrW4MWKquqAsjCsnVBW3i2 QwNk05Z28y IHdpZHRoPSIxNSUiIHZhbG zuqa7mfV3xSd0+PGNvbCB3 gAP1dX0jKiRgBrE9CVigJ3 49InRvcCIv Kqueb4phy1bysBp8MqRzCR QpteQxpJwcBKI9d5QbEc74 B1RpqJjdn3PwJhi8ff39tQ Bts0H8lYA3 H9FxMKMuxfrkaDKisRxkTY 1tAOXwqsulGCFatI8lFOPe Q6v1OhWjWyZ7BSxtP2Eauh L3KPTnxNKe HQtpXQN4J81bn0D3LJUxUJ GiHGY2mDO2nL4zjHjoqlip bGVmdDsgdmVydGljYWwtYW haD822RWRy vDwrWJIkkM0tSBPnqMHxhQ ftDZ7hZPKcuvmkXuxBXQ2E TiwgRUxJWkFCRVRIIEFOTj wvdGQ+PHRk MSF2yQmuGEwjCBMjgU6pDB WgT5s4OtDvYnN8VMqrY5Sm SCXapyuwQp46pI7nBlXsXw I9AGpuN1Cg rqH5FJXvgLCdOIneNBQ1U8 7xy4J1RYPbNPQcDAY4iSG3 dH2sjTgrrubbeHTfdNqych VydGljYWwt LPtmH713ZGOqoXgsCeA6Si HqUvV3MqO8N7GzXfn7AETm pNmjQK2jiNXnJYdbLt5oqT ctnOtqFH7w ZOPydckvCJBfaS1mEPSkyY TtwGkjXH4oXGYjxumss636 BjLlQHE7HSHccFEzN0YaiZ 9yOiAjMDAw HCHyY9NhwEIsHPqqD390AY xgImM0NDMydiOrA6FxBWVx zJixMvN4u8B1Qj14LTWJWR FyczwvdGQ+ UBZfIUG4yTwmJMgcKYSdjD 0tNPGfE6r4WjHeWcY8VLab X9EpFVUnkrjcMm54xY9nZs XvIgE3YPnt W1YfjsN6ZTOktDIwUOtcQM M6G67bz8K1WUUeSSHsDVQ2 bFR9zR8dxHgvibuleAQsjH sgdmVydGlj YNjtNHfvL832KGWpdAshVs ZFTUFMRTwvdGQ+PHRkIHN0 rOzaAPwyIBMedR6fDWXjB4 m3CbElOoG7 FNrlB8LiKPKisdtaHt45hG 0oReOsVoT9JLdeM3MmyqL5 NNFacMWuTSqfBPT9O37fh6 H4KHBzEZLc UVK0jDN2xW5bbTusmfbudW VmdDsgdmVydGljYWwtYWxp G665UDAfdNylMe7OLV55ET 02N0IjPhrn dGFibGU+PHRhYmxlIHdpZH YdHLurAEXwVrSssQcoTN1k Yr4jVFYpDMBnhFdffJZeSg Lvk0lsKUFj BKjuYI3zkPfeE7KoaDF8CJ Qjm4k0Gw97S53xQ9WvlBD+ MEWjjGB0iOZ5lA4qHvRuZw W8DTwmY388 VnBagTRsGfkej3biu3gynJ a1IeAwLFQwitHeeShbUHA3 v9WmBy40Q43pGGogYOWwAN IyMCUiIHZh dPuano3gxJ6xSs1+PGNvbC P7uYW2dO6pGtReHcO3DDwj T742AsVawMCzYoblI22xE7 JvdXA+PHRy Mpf2HKStoNyhJS5wxLGkQS jcRl7kZTQ1GfXzHvNjWAru K4GlVDLllvgdbviqmYD6IC GzSNXcdJ47 Qm3zpOhdUg2wSCOiLHW4QA BmgWZxJ9SbwU5fLgMyVODk ORZbC8ExxUUzJHmtK776RK utJjX9YWSx woIfB9BgXCDnfMumKtX7n9 K7Jt1UpBbneRJiFE3pTgWu MCe3P7AqPsm2HFHliPgmCX 0ncGFkZGlu Kf6qmIvwmLkmUN2bLFOuqn lal606ElOmg7yhLMHdfKQb CCmyARY9B44zx7S6AHXoVR BlBQM0uXP2 uS5oqYsnhcysvUBeiYedry EesDvbAFevFBdiT154DAJu tHwxHvBZBbn9S8DmMuu9AK OgaCadDK8s rUOgGBxsYe4ojNtnfRjnKN 1sEDOqsafzx042FeRgs6jl MZXreFBxSGciFVE4J62ap3 W2RHFjIIGf SED4nVF3fY9miSbdnrglqC VmdDsgdmVydGljYWwtYWxp Z100BCSlwTejYt4AAsb9Q8 MoGiw5FQQz nMnvYK5lrBZqOTwrDi2nzA uheVrgKZ5iEPKejqysm305 UxBqq3ldSXPrnICiJTxnIJ R5V26kp8P8 NCShZAVlCHX1fTN5gC5hlE lnbjogbGVmdDsgdmVydGlj MIgdYRysI154DICleBmyBg BheWVyOjwv dGQ+BF19jk89Q0HxBucaPf d0KPKzHHK2rYS7sB2mVKIx HKnbe1N9sCN6Y9NjnfFuqf 1hq7wmZSPv ZTo (more content not included)... [facility] Consent Formson 01-08-2021 Consent Forms [id number] [facility] Progress Note - Nurseon Progress Note - Nurse PAT review for 01-21-2021 surgery reviewed per anesthesiologist, Dr. Gutierrez- no additional orders received. [Electronically Signed on: 01/07/2021 14:24 EST] Elvira Navarro RN [Verified on: 01/07/2021 14:24 EST] Elvira Navarro RN [facility] .Auto Diff 1on 01-04-2021 Auto [place] % 8 % Normal 03-13 [facility] Comment on above: Performed By: #### 1 [id number], [id number], [id number] ####[facility] (DEFAULT)[address] [place] [address] 80480 Baso Abs# 0.1 x10 Normal 0.0-0.2 [facility] Comment on above: Performed By: #### 1 [id number], [id number], [id number] ####[facility] (DEFAULT)[address] [place] [address] 17632 Basophils/100 WBC (Bld) 1.2 % Normal 0.2-2.0 [facility] Comment on above: Performed By: #### 1 [id number], [id number], [id number] ####[facility] (DEFAULT)[address] [place] [address] 47573 Eos Abs# 0.3 x10 Normal 0.0-0.4 [facility] Comment on above: Performed By: #### 1 [id number], [id number], [id number] ####[facility] (DEFAULT)[address] [place] [address] Eosinophils/100 WBC (Bld) 3.6 % Normal 0.9-4.0 [facility] Comment on above: Performed By: #### 1 [id number], [id number], [id number] ####[facility] (DEFAULT)[address] [place] [address] 09891 Lymph Abs# 2.6 x10 Normal 1.3-2.9 [facility] Comment on above: Performed By: #### 1 [id number], [id number], [id number] ####[facility] (DEFAULT)[address] [place] [address] 80008 Lymphocytes/100 WBC (Bld) 34 % Normal 14-48 [facility] Comment on above: Performed By: #### 1 [id number], [id number], [id number] ####[facility] (DEFAULT)[address] [place] [address] 73989 [place] Abs# 0.6 x10 Normal 0.0-0.8 [facility] Comment on above: Performed By: #### 1 [id number], [id number], [id number] ####[facility] (DEFAULT)[address] [place] [address] 06854 Neut Abs# 3.9 x10 Normal 1.5-9.2 [facility] Comment on above: Performed By: #### 1 [id number], [id number], [id number] ####[facility] (DEFAULT)[address] [place] [address] 51685 Neutrophils/100 WBC (Bld) 53 % Normal 44-88 [facility] Comment on above: Performed By: #### 1 [id number], [id number], [id number] ####[facility] (DEFAULT)[address] [place] [address] 66506 BMP Standardon 01-04-2021 eGFR Non AA >60 Invalid Interpretation Code [facility] Comment on above: Performed By: #### 1 [id number], [id number], [id number] ####[facility] (DEFAULT)[address] [place] [address] 34853 eGFR AA >60 Invalid Interpretation Code [facility] Comment on above: Result Comment: Restrictive Preparation Operator medina Kidney disease could be indicated at eGFRs of less than 60 ml/min/1.73m2. Kidney Failure is indicated at less than 15 ml/min/1.73m2 Performed By: #### 1 [id number], [id number], [id number] ####[facility] (DEFAULT)[address] [place] [address] 03912 Anion gap [Moles/Vol] 12.0 mmol/L Normal 5.0-19.0 [facility] Comment on above: Performed By: #### 1 [id number], [id number], [id number] ####[facility] (DEFAULT)[address] [place] [address] 00039 Calcium [Mass/Vol] 9.5 mg/dL Normal 8.9-10.3 [facility] Comment on above: Performed By: #### 1 [id number], [id number], [id number] ####[facility] (DEFAULT)[address] [place] [address] 88644 Chloride [Moles/Vol] 102 mmol/L Normal 101-111 [facility] Comment on above: Performed By: #### 1 [id number], [id number], [id number] ####[facility] (DEFAULT)[address] [place] [address] 11904 CO2 [Moles/Vol] 27 mmol/L Normal 21-32 [facility] Comment on above: Performed By: #### 1 [id number], [id number], [id number] ####[facility] (DEFAULT)[address] [place] [address] 05513 Creatinine [Mass/Vol] 0.77 mg/dL Normal 0.60-1.[address] [facility] Comment on above: Performed By: #### 1 [id number], [id number], [id number] ####[facility] (DEFAULT)[address] [place] [address] 80613 Glucose [Mass/Vol] 88.0 mg/dL Normal 74.0-118.0 [facility] Comment on above: Performed By: #### 1 [id number], [id number], [id number] ####[facility] (DEFAULT)[address] [place] [address] 26760 Osmolality 275 mOsm/L Invalid Interpretation Code [facility] Comment on above: Performed By: #### 1 [id number], [id number], [id number] ####[facility] (DEFAULT)[address] [place] [address] 68783 Potassium [Moles/Vol] 3.4 mmol/L Low 3.6-5.[address] [facility] Comment on above: Performed By: #### 1 [id number], [id number], [id number] ####[facility] (DEFAULT)[address] [place] [address] 99454 Sodium [Moles/Vol] 138.0 mmol/L Normal 136.0-144.[address] [facility] Comment on above: Performed By: #### 1 [id number], [id number], [id number] ####[facility] (DEFAULT)[address] [place] [address] 66006 Urea nitrogen [Mass/Vol] 13 mg/dL Normal 8-26 [facility] Comment on above: Performed By: #### 1 [id number], [id number], [id number] ####[facility] (DEFAULT)[address] [place] [address] Urea nitrogen/Creatinine [Mass ratio] 17.0 mg/mg High 4.6-16.2 [facility] Comment on above: Performed By: #### 1 [id number], [id number], [id number] ####[facility] (DEFAULT)[address] [place] [address] CBC w/ Auto Diffon Erythrocyte distribution width (RBC) [Ratio] 13.7 % Normal 11.5-15.0 [facility] Comment on above: Performed By: #### 1 [id number], [id number], [id number] ####[facility] (DEFAULT)[address] [place] [address] Hematocrit (Bld) [Volume fraction] 37.5 % Normal 33.7-40.4 [facility] Comment on above: Performed By: #### 1 [id number], [id number], [id number] ####[facility] (DEFAULT)[address] [place] [address] Hemoglobin (Bld) [Mass/Vol] 11.7 g/dL Normal 11.3-15.9 [facility] Comment on above: Performed By: #### 1 [id number], [id number], [id number] ####[facility] (DEFAULT)[address] [place] [address] Instr WBC 7.4 x10 Invalid Interpretation Code [facility] Comment on above: Performed By: #### 1 [id number], [id number], [id number] ####[facility] (DEFAULT)[address] [place] [address] Man Diff? Auto Normal [facility] Comment on above: Performed By: #### 1 [id number], [id number], [id number] ####[facility] (DEFAULT)[address] [place] [address] MCH (RBC) [Entitic mass] 26 pg Normal 24-34 [facility] Comment on above: Performed By: #### 1 [id number], [id number], [id number] ####[facility] (DEFAULT)[address] [place], [place] [address] MCHC (RBC) [Mass/Vol] 31 g/dL Normal 26-[address] [facility] Comment on above: Performed By: #### 1 [id number], [id number], [id number] ####[facility] (DEFAULT)[address] [place] [address] 21374 MCV (RBC) [Entitic vol] 84 fL Normal 81-100 [facility] Comment on above: Performed By: #### 1 [id number], [id number], [id number] ####[facility] (DEFAULT)[address] [place] [address] 61155 Platelet 393 x10 Normal 138-427 [facility] Comment on above: Performed By: #### 1 [id number], [id number], [id number] ####[facility] (DEFAULT)[address] [place] [address] 92637 Platelet mean volume (Bld) [Entitic vol] 9.7 fL Normal 6.3-10.2 [facility] Comment on above: Performed By: #### 1 [id number], [id number], [id number] ####[facility] (DEFAULT)[address] [place] [address] 61396 RBC 4.48 x10 Normal 3.70-5.30 [facility] Comment on above: Performed By: #### 1 [id number], [id number], [id number] ####[facility] (DEFAULT)[address] [place] [address] 37656 WBC 7.4 x10 Normal 3.5-10.5 [facility] Comment on above: Performed By: #### 1 [id number], [id number], [id number] ####[facility] (DEFAULT)[address] [place] [address] 65952 CULTURE, URINE, ROUTINEon CULTURE, URINE, ROUTINE SEE NOTE Abnormal [facility] Comment on above: Result Comment: CULTURE, URINE, ROUTINE Micro Number: [id number] Test Status: Final Specimen Source: Not given [...] loracarbef. Performed By: #### 3 95 #### [address], [address] [place] [id number] Transmission Supervisor: Heraclio Miller MD Vital Signs Date Time Vital Sign Value Performing Clinician Facility 10-05-2024 13:28-0400 Body temperature 97.39 [degF] Marisela LINDQUIST Work Phone: [facility] 10-05-2024 13:28-0400 Diastolic blood pressure 86 mm[Hg] Marisela Cuevas APRN-APPARATUS ENGINEERING TECHNOLOGIST Work Phone: [facility] 10-05-2024 13:28-0400 Heart rate 77 /min Marisela LINDQUIST Work Phone: [facility] 10-05-2024 13:28-0400 Respiratory rate 15 /min Marisela Cuevas APRN-APPARATUS ENGINEERING TECHNOLOGIST Work Phone: [facility] 10-05-2024 13:28-0400 Systolic blood pressure 116 mm[Hg] Marisela Mason PLANNING LEAD-APPARATUS ENGINEERING TECHNOLOGIST Work Phone: [facility] 09-16-2024 08:57-0400 Body temperature 97.39 [degF] Geno Bittikofer PLANNING LEAD.APPARATUS ENGINEERING TECHNOLOGIST Work Phone: [facility] 09-16-2024 08:57-0400 Diastolic blood pressure 90 mm[Hg] Geno Bittikofer PLANNING LEAD.APPARATUS ENGINEERING TECHNOLOGIST Work Phone: [facility] 09-16-2024 08:57-0400 Heart rate 84 /min Geno Bittikofer PLANNING LEAD.APPARATUS ENGINEERING TECHNOLOGIST Work Phone: [facility] 09-16-2024 08:57-0400 SaO2% (BldA) [Mass fraction] 100 % Geno Bittikofer PLANNING LEAD.APPARATUS ENGINEERING TECHNOLOGIST Work Phone: [facility] 09-16-2024 08:57-0400 Systolic blood pressure 136 mm[Hg] Geno Bittikofer PLANNING LEAD.APPARATUS ENGINEERING TECHNOLOGIST Work Phone: [facility] 09-16-2024 07:23-0400 Body mass index (BMI) [Ratio] 28.88 kg/m2 Alessandra Syed PLANNING LEAD.APPARATUS ENGINEERING TECHNOLOGIST Work Phone: [facility] 09-16-2024 07:23-0400 Body temperature 98.1 [degF] Alessandra Syed PLANNING LEAD.APPARATUS ENGINEERING TECHNOLOGIST Work Phone: [facility] 09-16-2024 07:23-0400 Body weight 91.3 kg Alessandra Syed PLANNING LEAD.APPARATUS ENGINEERING TECHNOLOGIST Work Phone: [facility] 09-16-2024 07:23-0400 Diastolic blood pressure 92 mm[Hg] Alessandra Syed PLANNING LEAD.APPARATUS ENGINEERING TECHNOLOGIST Work Phone: [facility] 09-16-2024 07:23-0400 Heart rate 78 /min Alessandra Syed PLANNING LEAD.APPARATUS ENGINEERING TECHNOLOGIST Work Phone: [facility] 09-16-2024 07:23-0400 Respiratory rate 18 /min Alessandra Dennisopf PLANNING LEAD.APPARATUS ENGINEERING TECHNOLOGIST Work Phone: [facility] 09-16-2024 07:23-0400 SaO2% (BldA) [Mass fraction] 100 % Alessandra Syed PLANNING LEAD.APPARATUS ENGINEERING TECHNOLOGIST Work Phone: [facility] 09-16-2024 07:23-0400 Systolic blood pressure 149 mm[Hg] Alessandra Dennisopf PLANNING LEAD.APPARATUS ENGINEERING TECHNOLOGIST Work Phone: [facility] 09-08-2024 09:52-0400 Body temperature 98.6 [degF] Shereen Smallwood PA-C Work Phone: [facility] 09-08-2024 09:52-0400 Diastolic blood pressure 85 mm[Hg] Shereen Smallwood PA-C Work Phone: [facility] 09-08-2024 09:52-0400 Heart rate 79 /min Shereen Castilloreaux PA-C Work Phone: [facility] 09-08-2024 09:52-0400 Respiratory rate 16 /min Shereen Castilloreaux PA-C Work Phone: [facility] 09-08-2024 09:52-0400 Systolic blood pressure 125 mm[Hg] Shereen Janeaux PA-C Work Phone: [facility] 09-07-2024 09:26-0400 Diastolic blood pressure 82 mm[Hg] [employer] Work Phone: [facility] 09-07-2024 09:26-0400 Heart rate 63 /min [employer] Work Phone: [facility] 09-07-2024 09:26-0400 SaO2% (BldA) [Mass fraction] 100 % [employer] Work Phone: [facility] 09-07-2024 09:26-0400 Systolic blood pressure 136 mm[Hg] [employer] Work Phone: [facility] 08-18-2024 15:41-0400 Body temperature 97.81 [degF] Shereen Smallwood PA-C [facility] 08-18-2024 15:41-0400 Diastolic blood pressure 82 mm[Hg] Shereen Smallwood PA-C Work Phone: [facility] [employer] [facility] 08-18-2024 15:41-0400 Heart rate 93 /min Shereen Janeaux PA-C Work Phone: [facility] 08-18-2024 15:41-0400 Respiratory rate 16 /min Shereen Janeaux PA-C Work Phone: [facility] [employer] [facility] 08-18-2024 15:41-0400 Systolic blood pressure 118 mm[Hg] Shereen Janeaux PA-C Work Phone: [facility] [employer] [facility] 08-10-2024 16:37-0400 Diastolic blood pressure 60 mm[Hg] Dhruv White DO Work Phone: [facility] [facility] 08-10-2024 16:37-0400 Systolic blood pressure 100 mm[Hg] Dhruv White DO Work Phone: [facility] [employer] [facility] 08-10-2024 15:51-0400 Body height 177.8 cm Dhruv White DO Work Phone: [facility] [employer] [facility] 08-10-2024 15:51-0400 Body mass index (BMI) [Ratio] 28.04 kg/m2 Dhruv White DO Work Phone: [facility] 08-10-2024 15:51-0400 Body temperature 98.01 [degF] Dhruv White DO Work Phone: [facility] [employer] [facility] 08-10-2024 15:51-0400 Body weight 88.63 kg Dhruv White DO Work Phone: [facility] [employer] [facility] 08-10-2024 15:51-0400 Heart rate 98 /min Dhruv White DO [facility] 08-10-2024 15:51-0400 Respiratory rate 20 /min Dhruv White DO Work Phone: [facility] [employer] [facility] 08-10-2024 15:51-0400 SaO2% (BldA) [Mass fraction] 99 % Dhruv White DO Work Phone: [facility] [employer] [facility] 08-08-2024 09:30-0400 Body temperature 97.11 [degF] Shereen Smallwood PA-C Work Phone: [facility] 08-08-2024 09:30-0400 Diastolic blood pressure 86 mm[Hg] Shereen Smallwood PA-C Work Phone: [facility] 08-08-2024 09:30-0400 Heart rate 78 /min Shereen Smallwood PA-C Work Phone: [facility] [employer] 08-08-2024 09:30-0400 Respiratory rate 15 /min Shereen Smallwood PA-C Work Phone: [facility] [employer] [facility] 08-08-2024 09:30-0400 Systolic blood pressure 126 mm[Hg] Shereen Smallwood PA-C Work Phone: [facility] 08-03-2024 09:31-0400 Body height 177.8 cm Shereen Smallwood PA-C Work Phone: [facility] 08-03-2024 09:31-0400 Body mass index (BMI) [Ratio] 27.58 kg/m2 Shereen Smallwood PA-C Work Phone: [facility] [employer] [facility] 08-03-2024 09:31-0400 Body temperature 97.5 [degF] Shereen Smallwood PA-C Work Phone: [facility] [employer] [facility] 08-03-2024 09:31-0400 Body weight 87.2 kg Shereen Selin PA-C Work Phone: [facility] 08-03-2024 09:31-0400 Diastolic blood pressure 88 mm[Hg] Shereen Janeaux PA-C Work Phone: [facility] [employer] [facility] 08-03-2024 09:31-0400 Heart rate 76 /min Shereen Selin PA-C Work Phone: [facility] [employer] [facility] 08-03-2024 09:31-0400 Respiratory rate 16 /min Shereen Selni PA-C Work Phone: [facility] [employer] [facility] 08-03-2024 09:31-0400 Systolic blood pressure 138 mm[Hg] Shereen Janeaux PA-C Work Phone: [facility] 07-19-2024 07:57-0400 Body temperature 96.8 [degF] Krystin Barillas MD Work Phone: [facility] 07-19-2024 07:57-0400 Body weight 88.45 kg Krystin Barillas MD Work Phone: [facility] 07-19-2024 07:57-0400 Diastolic blood pressure 84 mm[Hg] Krystin Barillas MD Work Phone: [facility] 07-19-2024 07:57-0400 Heart rate 72 /min Krystin Barillas MD Work Phone: [facility] 07-19-2024 07:57-0400 Respiratory rate 18 /min Krystin Barillas MD Work Phone: [facility] 07-19-2024 07:57-0400 SaO2% (BldA) [Mass fraction] 100 % Krystin Barillas MD Work Phone: [facility] 07-19-2024 07:57-0400 Systolic blood pressure 138 mm[Hg] Krystin Barillas MD Work Phone: [facility] 07-15-2024 13:21-0400 Body height 180.3 cm [employer] [facility] 07-15-2024 13:21-0400 Body mass index (BMI) [Ratio] 26.92 kg/m2 [facility] 07-15-2024 13:21-0400 Body weight 87.54 kg [employer] [facility] 07-14-2024 08:55-0400 Body height 180.3 cm Richie Jacques PLANNING LEAD-APPARATUS ENGINEERING TECHNOLOGIST Work Phone: [facility] 07-14-2024 08:55-0400 Body mass index (BMI) [Ratio] 27 kg/m2 Richie Jacques PLANNING LEAD-APPARATUS ENGINEERING TECHNOLOGIST Work Phone: [facility] 07-14-2024 08:55-0400 Body temperature 97.9 [degF] Richie Jacques PLANNING LEAD-APPARATUS ENGINEERING TECHNOLOGIST Work Phone: [facility] 07-14-2024 08:55-0400 Body weight 87.82 kg Richie Jacques PLANNING LEAD-APPARATUS ENGINEERING TECHNOLOGIST Work Phone: [facility] 07-14-2024 08:55-0400 Heart rate 66 /min Richie Jacques PLANNING LEAD-APPARATUS ENGINEERING TECHNOLOGIST Work Phone: [facility] [employer] [facility] 07-14-2024 08:55-0400 Respiratory rate 18 /min Richie Jacques PLANNING LEAD-APPARATUS ENGINEERING TECHNOLOGIST Work Phone: [facility] 07-14-2024 08:55-0400 SaO2% (BldA) [Mass fraction] 99 % Richie Jacques PLANNING LEAD-APPARATUS ENGINEERING TECHNOLOGIST Work Phone: [facility] 07-06-2024 08:49-0400 Body height 180.3 cm Marisela Cuevas PLANNING LEAD-APPARATUS ENGINEERING TECHNOLOGIST Work Phone: [facility] 07-06-2024 08:49-0400 Body mass index (BMI) [Ratio] 26.36 kg/m2 Marisela Glasgoweder PLANNING LEAD-APPARATUS ENGINEERING TECHNOLOGIST Work Phone: [facility] [employer] [facility] 07-06-2024 08:49-0400 Body weight 85.73 kg Marisela Cuevas PLANNING LEAD-APPARATUS ENGINEERING TECHNOLOGIST Work Phone: [facility] [employer] [facility] 07-06-2024 08:49-0400 Diastolic blood pressure 90 mm[Hg] Marisela Cuevas PLANNING LEAD-APPARATUS ENGINEERING TECHNOLOGIST Work Phone: [facility] [employer] [facility] 07-06-2024 08:49-0400 Heart rate 71 /min Marisela Cuevas PLANNING LEAD-APPARATUS ENGINEERING TECHNOLOGIST Work Phone: [facility] [employer] [facility] 07-06-2024 08:49-0400 Systolic blood pressure 144 mm[Hg] Marisela Cuevas PLANNING LEAD-APPARATUS ENGINEERING TECHNOLOGIST Work Phone: [facility] [employer] [facility] 06-29-2024 14:29-0400 Body height 180.3 cm Marisela Cuevas PLANNING LEAD-APPARATUS ENGINEERING TECHNOLOGIST Work Phone: [facility] [employer] [facility] 06-29-2024 14:29-0400 Body mass index (BMI) [Ratio] 26.36 kg/m2 Marisela Cuevas PLANNING LEAD-APPARATUS ENGINEERING TECHNOLOGIST Work Phone: [facility] [employer] [facility] 06-29-2024 14:29-0400 Body temperature 97.39 [degF] Mariselavladimir Cuevas PLANNING LEAD-APPARATUS ENGINEERING TECHNOLOGIST Work Phone: [facility] 06-29-2024 14:29-0400 Body weight 85.73 kg Marisela Cuevas PLANNING LEAD-APPARATUS ENGINEERING TECHNOLOGIST Work Phone: [facility] 06-29-2024 14:29-0400 Diastolic blood pressure 113 mm[Hg] Marisela Cuevas PLANNING LEAD-APPARATUS ENGINEERING TECHNOLOGIST Work Phone: [facility] [employer] [facility] Comment on above: patient states its been running high 06-29-2024 14:29-0400 Heart rate 84 /min Marisela Cuevas PLANNING LEAD-APPARATUS ENGINEERING TECHNOLOGIST Work Phone: [facility] 06-29-2024 14:29-0400 Respiratory rate 14 /min Marisela Cuevas PLANNING LEAD-APPARATUS ENGINEERING TECHNOLOGIST Work Phone: [facility] [employer] [facility] 06-29-2024 14:29-0400 Systolic blood pressure 168 mm[Hg] Marisela Cuevas PLANNING LEAD-APPARATUS ENGINEERING TECHNOLOGIST Work Phone: [facility] [employer] [facility] Comment on above: patient states its been running high 06-22-2024 15:10-0400 Diastolic blood pressure 95 mm[Hg] Marisela Cuevas PLANNING LEAD-APPARATUS ENGINEERING TECHNOLOGIST Work Phone: [facility] [employer] [facility] 06-22-2024 15:10-0400 Systolic blood pressure 141 mm[Hg] Marisela Cuevas PLANNING LEAD-APPARATUS ENGINEERING TECHNOLOGIST Work Phone: [facility] [employer] [facility] 06-22-2024 15:09-0400 Body height 180.3 cm Marisela Cuevas PLANNING LEAD-APPARATUS ENGINEERING TECHNOLOGIST Work Phone: [facility] [employer] [facility] 06-22-2024 15:09-0400 Body mass index (BMI) [Ratio] 26.36 kg/m2 Amrisela Cuevas PLANNING LEAD-APPARATUS ENGINEERING TECHNOLOGIST Work [facility]: [facility] 06-22-2024 15:09-0400 Body weight 85.73 kg Marisela Cuevas PLANNING LEAD-APPARATUS ENGINEERING TECHNOLOGIST Work Phone: [facility] 06-22-2024 15:09-0400 Heart rate 81 /min Marisela Cuevas PLANNING LEAD-APPARATUS ENGINEERING TECHNOLOGIST Work Phone: [facility] [employer] [facility] 06-22-2024 15:09-0400 Respiratory rate 16 /min Marisela Cuevas PLANNING LEAD-APPARATUS ENGINEERING TECHNOLOGIST Work Phone: [facility] 06-08-2024 11:52-0400 Body temperature 97.7 [degF] Trish DUFFY-Jamal Work Phone: [facility] [employer] [facility] [facility] 06-08-2024 11:52-0400 Diastolic blood pressure 110 mm[Hg] Trish DUFFY-Jamal Work Phone: [facility] 06-08-2024 11:52-0400 Heart rate 69 /min Trish Adrianinger PA-C Work Phone: [facility] 06-08-2024 11:52-0400 Respiratory rate 16 /min Trish Adrianinger PA-C Work Phone: [facility] 06-08-2024 11:52-0400 Systolic blood pressure 156 mm[Hg] Trish Adrianinger PA-C Work Phone: [facility] 06-03-2024 10:37-0400 Body height 180.34 cm Randy Furlong DO Work Phone: [facility] 06-03-2024 10:37-0400 Body weight 83.91 kg Randy Furlong DO Work Phone: [facility] 06-01-2024 11:21-0400 Body mass index (BMI) [Ratio] 26.28 kg/m2 Evan Jay DO Work Phone: [facility] 06-01-2024 11:21-0400 Body weight 85.46 kg Evan Jay DO Work Phone: [facility] 06-01-2024 11:21-0400 Diastolic blood pressure 68 mm[Hg] Evan Jay DO Work Phone: [facility] 06-01-2024 11:21-0400 Systolic blood pressure 110 mm[Hg] Evan Jay DO Work Phone: [facility] 06-01-2024 09:36-0400 Body temperature 97.7 [degF] Marisela Cuevas PLANNING LEAD-APPARATUS ENGINEERING TECHNOLOGIST Work Phone: [facility] 06-01-2024 09:36-0400 Diastolic blood pressure 95 mm[Hg] Marisela Cuevas PLANNING LEAD-APPARATUS ENGINEERING TECHNOLOGIST Work Phone: [facility] 06-01-2024 09:36-0400 Heart rate 81 /min Marisela Cuevas PLANNING LEAD-APPARATUS ENGINEERING TECHNOLOGIST Work Phone: [facility] 06-01-2024 09:36-0400 Respiratory rate 14 /min Marisela Cuevas PLANNING LEAD-APPARATUS ENGINEERING TECHNOLOGIST Work Phone: [facility] 06-01-2024 09:36-0400 Systolic blood pressure 149 mm[Hg] Marisela Cuevas PLANNING LEAD-APPARATUS ENGINEERING TECHNOLOGIST Work Phone: [facility] 05-22-2024 22:22-0400 SaO2% (BldA) [Mass fraction] 96 % [facility] 05-22-2024 22:22-0400 Heart rate 97 /min [facility] 05-22-2024 22:12-0400 SaO2% (BldA) [Mass fraction] 96 % [facility] 05-22-2024 22:12-0400 Heart rate 102 /min [facility] 05-22-2024 22:12-0400 Body temperature 99.68 [degF] [facility] 05-22-2024 22:12-0400 Diastolic blood pressure 94 mm[Hg] [facility] 05-22-2024 22:12-0400 Mean blood pressure 109 mm[Hg] [facility] 05-22-2024 22:12-0400 Respiratory rate 18 /min [facility] 05-22-2024 22:12-0400 Systolic blood pressure 138 mm[Hg] [facility] 05-22-2024 21:35-0400 SaO2% (BldA) [Mass fraction] 95 % [facility] 05-22-2024 21:35-0400 Heart rate 108 /min [facility] 05-22-2024 21:35-0400 Body temperature 100.76 [degF] [facility] 05-22-2024 21:35-0400 Diastolic blood pressure 85 mm[Hg] [facility] 05-22-2024 21:35-0400 Mean blood pressure 103 mm[Hg] [facility] 05-22-2024 21:35-0400 Respiratory rate 18 /min [facility] 05-22-2024 21:35-0400 Systolic blood pressure 140 mm[Hg] [facility] 05-22-2024 21:00-0400 Mean blood pressure 106 mm[Hg] [facility] 05-22-2024 20:58-0400 Body temperature 101.84 [degF] [facility] 05-22-2024 19:00-0400 Heart rate 120 /min [facility] 05-18-2024 09:08-0400 Body height 180.3 cm Shereen DUFFY-C Work Phone: [facility] 05-18-2024 09:08-0400 Body mass index (BMI) [Ratio] 26.89 kg/m2 Shereen Smallwood PA-C Work Phone: [facility] 05-18-2024 09:08-0400 Body temperature 97.5 [degF] Shereen Smallwood PA-C Work Phone: [facility] 05-18-2024 09:08-0400 Body weight 87.45 kg Shereen Smallwood PA-C Work Phone: [facility] 05-18-2024 09:08-0400 Diastolic blood pressure 90 mm[Hg] Shereen Smallwood PA-C Work Phone: [facility] 05-18-2024 09:08-0400 Heart rate 84 /min Shereen Smallwood PA-C Work Phone: [facility] 05-18-2024 09:08-0400 Systolic blood pressure 151 mm[Hg] Shereen Smallwood PA-C Work Phone: [facility] 05-12-2024 11:49-0400 Body height 180.3 cm [facility] 05-12-2024 11:49-0400 Body mass index (BMI) [Ratio] 26.78 kg/m2 [facility] 05-12-2024 11:49-0400 Body weight 87.09 kg [facility] 04-28-2024 16:02-0500 Body temperature 97.9 [degF] Jhon Gross MD Work Phone: [facility] 04-28-2024 16:02-0500 Diastolic blood pressure 85 mm[Hg] Jhon Gross MD Work Phone: [facility] 04-28-2024 16:02-0500 Heart rate 92 /min Jhon Gross MD Work Phone: [facility] 04-28-2024 16:02-0500 Systolic blood pressure 148 mm[Hg] Jhon Gross MD Work Phone: [facility] 04-26-2024 15:01-0500 Body height 178 cm Evan Jay DO Work Phone: [facility] 04-26-2024 15:01-0500 Body mass index (BMI) [Ratio] 28.5 kg/m2 Evan Jay DO Work Phone: [facility] 04-26-2024 15:01-0500 Body temperature 97.4 [degF] Evan Jay DO Work Phone: [facility] 04-26-2024 15:01-0500 Body weight 90.52 kg Evan Jay DO Work Phone: [facility] 04-26-2024 15:01-0500 Diastolic blood pressure 69 mm[Hg] Evan Jay DO Work Phone: [facility] 04-26-2024 15:01-0500 Heart rate 86 /min Evan Jay DO Work Phone: [facility] 04-26-2024 15:01-0500 Respiratory rate 16 /min Evan Jay DO Work Phone: [facility] 04-26-2024 15:01-0500 SaO2% (BldA) [Mass fraction] 98 % Evan Jay DO Work Phone: [facility] 04-26-2024 15:01-0500 Systolic blood pressure 125 mm[Hg] Evan Jay DO Work Phone: [facility] 04-20-2024 15:11-0500 Body height 180.3 cm Mariselavladimir Cuevas PLANNING LEAD-APPARATUS ENGINEERING TECHNOLOGIST Work Phone: [facility] 04-20-2024 15:11-0500 Body mass index (BMI) [Ratio] 27.71 kg/m2 Mariselavladimir Cuevas PLANNING LEAD-APPARATUS ENGINEERING TECHNOLOGIST Work Phone: [employer] 04-20-2024 15:11-0500 Body temperature 97.59 [degF] Mariselavladimir Cuevas PLANNING LEAD-APPARATUS ENGINEERING TECHNOLOGIST Work Phone: [facility] 04-20-2024 15:11-0500 Body weight 90.08 kg Mariselavladimir Cuevas PLANNING LEAD-APPARATUS ENGINEERING TECHNOLOGIST Work Phone: [employer] [facility] 04-20-2024 15:11-0500 Diastolic blood pressure 85 mm[Hg] Marisela Cuevas PLANNING LEAD-APPARATUS ENGINEERING TECHNOLOGIST Work Phone: [employer] [facility] 04-20-2024 15:11-0500 Heart rate 84 /min Mariselavladimir GlasgowCuevas PLANNING LEAD-APPARATUS ENGINEERING TECHNOLOGIST Work Phone: [facility] 04-20-2024 15:11-0500 Respiratory rate 16 /min Mariselavladimir GlasgowCuevas PLANNING LEAD-APPARATUS ENGINEERING TECHNOLOGIST Work Phone: [employer] 04-20-2024 15:11-0500 Systolic blood pressure 143 mm[Hg] Marisela Cuevas PLANNING LEAD-APPARATUS ENGINEERING TECHNOLOGIST [facility] 04-13-2024 13:40-0500 Body height 180.3 cm Mariselavladimir Cuevas APRN-APPARATUS ENGINEERING TECHNOLOGIST Work Phone: [facility] [employer] [facility] 04-13-2024 13:40-0500 Body mass index (BMI) [Ratio] 27.71 kg/m2 Mariselavladimir Cuevas PLANNING LEAD-APPARATUS ENGINEERING TECHNOLOGIST Work Phone: [facility] [employer] [facility] 04-13-2024 13:40-0500 Body temperature 97.9 [degF] Mariselavladimir Cuevas APRN-APPARATUS ENGINEERING TECHNOLOGIST Work Phone: [facility] [employer] [facility] 04-13-2024 13:40-0500 Body weight 90.08 kg Mariselavladimir Cuevas PLANNING LEAD-APPARATUS ENGINEERING TECHNOLOGIST Work Phone: [facility] 04-13-2024 13:40-0500 Diastolic blood pressure 82 mm[Hg] Mariselavladimir Cuevas APRN-APPARATUS ENGINEERING TECHNOLOGIST Work Phone: [facility] [employer] [facility] 04-13-2024 13:40-0500 Respiratory rate 15 /min Mariselavladimir Cuevas APRN-APPARATUS ENGINEERING TECHNOLOGIST Work Phone: [facility] [employer] [facility] 04-13-2024 13:40-0500 Systolic blood pressure 134 mm[Hg] Marisela Cuevas APRN-APPARATUS ENGINEERING TECHNOLOGIST Work Phone: [facility] 04-13-2024 13:12-0500 Diastolic blood pressure 82 mm[Hg] Raymond Sepulveda MD Work Phone: [facility] 04-13-2024 13:12-0500 Heart rate 78 /min Raymond Sepulveda MD Work [facility] 04-13-2024 13:12-0500 Respiratory rate 16 /min Raymond Sepulveda MD Work [facility] 04-13-2024 13:12-0500 SaO2% (BldA) [Mass fraction] 99 % Raymond Sepulveda MD Work Phone: [facility] [employer] [facility] 04-13-2024 13:12-0500 Systolic blood pressure 134 mm[Hg] Raymond Sepulveda MD Work Phone: [facility] [employer] [facility] 04-13-2024 13:08-0500 Body height 180.3 cm Raymond Sepulveda MD Work Phone: [facility] [employer] [facility] 04-13-2024 13:08-0500 Body mass index (BMI) [Ratio] 27.71 kg/m2 Raymond Sepulveda MD Work Phone: [facility] [employer] [facility] 04-13-2024 13:08-0500 Body weight 90.08 kg Raymond Sepulveda MD Work Phone: [facility] 03-30-2024 15:58-0500 Body height 180.3 cm Marisela Cuevas PLANNING LEAD-APPARATUS ENGINEERING TECHNOLOGIST Work Phone: [facility] [employer] [facility] 03-30-2024 15:58-0500 Body mass index (BMI) [Ratio] 27.91 kg/m2 Marisela Cuevas PLANNING LEAD-APPARATUS ENGINEERING TECHNOLOGIST Work Phone: [facility] [employer] [facility] 03-30-2024 15:58-0500 Body weight 90.72 kg Marisela Cuevas PLANNING LEAD-APPARATUS ENGINEERING TECHNOLOGIST Work Phone: [facility] [employer] [facility] 03-30-2024 15:58-0500 Diastolic blood pressure 82 mm[Hg] Marisela Cuevas PLANNING LEAD-APPARATUS ENGINEERING TECHNOLOGIST Work Phone: [facility] [employer] [facility] 03-30-2024 15:58-0500 Heart rate 82 /min Marisela Cuevas PLANNING LEAD-APPARATUS ENGINEERING TECHNOLOGIST Work Phone: [facility] [employer] [facility] 03-30-2024 15:58-0500 Systolic blood pressure 123 mm[Hg] Marisela Cuevas PLANNING LEAD-APPARATUS ENGINEERING TECHNOLOGIST Work Phone: [facility] 03-10-2024 11:42-0500 Body mass index (BMI) [Ratio] 27.91 kg/m2 Evan Thompson DO Work Phone: [facility] 03-10-2024 11:42-0500 Body weight 90.77 kg Evan Jay DO Work Phone: [facility] 03-10-2024 11:42-0500 Diastolic blood pressure 82 mm[Hg] Evan Jay DO Work Phone: [facility] 03-10-2024 11:42-0500 Systolic blood pressure 120 mm[Hg] Evan Jay DO Work Phone: [facility] 03-10-2024 08:44-0500 Body height 180.3 cm Jhon Gross MD Work Phone: [facility] 03-10-2024 08:44-0500 Body mass index (BMI) [Ratio] 28.1 kg/m2 Jhon Gross MD Work Phone: [facility] 03-10-2024 08:44-0500 Body temperature 97.7 [degF] Jhon Gross MD Work Phone: [facility] 03-10-2024 08:44-0500 Body weight 91.4 kg Jhon Gross MD Work Phone: [facility] 03-10-2024 08:44-0500 Diastolic blood pressure 99 mm[Hg] Jhon Gross MD Work Phone: [facility] Comment on above: Patient has not taken bp meds racquel stewart 03-10-2024 08:44-0500 Heart rate 76 /min Jhon Gross MD Work Phone: [facility] 03-10-2024 08:44-0500 Respiratory rate 12 /min Jhon Gross MD Work Phone: [facility] 03-10-2024 08:44-0500 Systolic blood pressure 160 mm[Hg] Jhon Gross MD Work Phone: [facility] Comment on above: Patient has not taken bp meds racquel stewart 03-03-2024 12:50-0500 Diastolic blood pressure 85 mm[Hg] Jhon Gross MD Work Phone: [facility] 03-03-2024 12:50-0500 Heart rate 89 /min Jhon Gross MD Work Phone: [facility] 03-03-2024 12:50-0500 Respiratory rate 16 /min Jhon Gross MD Work Phone: [facility] 03-03-2024 12:50-0500 Systolic blood pressure 129 mm[Hg] Jhon Gross MD Work Phone: [facility] 02-15-2024 15:58-0500 Body mass index (BMI) [Ratio] 28.87 kg/m2 Evan Jay DO Work Phone: [facility] 02-15-2024 15:58-0500 Body weight 93.89 kg Evan Jay DO Work Phone: [facility] 02-15-2024 15:58-0500 Diastolic blood pressure 72 mm[Hg] Evan Jay DO Work Phone: [facility] 02-15-2024 15:58-0500 Systolic blood pressure 124 mm[Hg] Evan Jay DO Work Phone: [facility] 02-11-2024 14:33-0500 Body height 180.34 cm Randy Furlong DO Work Phone: [facility] 02-11-2024 14:33-0500 Body mass index (BMI) [Ratio] 28.5 kg/m2 Randy Furlong DO Work Phone: [facility] 02-11-2024 14:33-0500 Body temperature 98.2 [degF] Randy Furlong DO Work Phone: [facility] 02-11-2024 14:33-0500 Body weight 92.98 kg Randy Furlong DO Work Phone: [facility] 02-11-2024 14:33-0500 Diastolic blood pressure 82 mm[Hg] Randy Furlong DO Work Phone: [facility] 02-11-2024 14:33-0500 Heart rate 90 /min Randy Furlong DO Work Phone: [facility] 02-11-2024 14:33-0500 Systolic blood pressure 125 mm[Hg] Randy Furlong DO Work Phone: [facility] 01-25-2024 10:07-0500 Body height 180.3 cm Yves Cofefy MD Work Phone: [facility] 01-25-2024 10:07-0500 Body mass index (BMI) [Ratio] 29.29 kg/m2 Yves Coffey MD Work Phone: [facility] 01-25-2024 10:07-0500 Body weight 95.25 kg Yves Coffey MD Work Phone: [facility] 12-29-2023 08:49-0400 Diastolic blood pressure 86 mm[Hg] Shereen Smallwood PA-C Work Phone: [facility] [employer] [facility] 12-29-2023 08:49-0400 Heart rate 111 /min Shereen Smallwood PA-C Work Phone: [facility] 12-29-2023 08:49-0400 Respiratory rate 14 /min Shereen Smallwood PA-C Work Phone: [facility] [employer] [facility] 12-29-2023 08:49-0400 Systolic blood pressure 143 mm[Hg] Shereen Smallwood PA-C Work Phone: [facility] 12-28-2023 21:30-0400 Diastolic blood pressure 95 mm[Hg] Rusty Horton [facility] 12-28-2023 21:30-0400 Heart rate 85 /min Rusty Clifford [facility] 12-28-2023 21:30-0400 Mean blood pressure 114 mm[Hg] Rusty Clifford [facility] 12-28-2023 21:30-0400 Respiratory rate 16 /min Rusty Clifford [facility] 12-28-2023 21:30-0400 SaO2% (BldA) [Mass fraction] 94 % Rusty Clifford [facility] 12-28-2023 21:30-0400 Systolic blood pressure 153 mm[Hg] Rusty Clifford [facility] 12-28-2023 21:00-0400 Diastolic blood pressure 96 mm[Hg] Rusty Clifford [facility] 12-28-2023 21:00-0400 Heart rate 89 /min Rusty Clifford [facility] 12-28-2023 21:00-0400 Mean blood pressure 119 mm[Hg] Rusty Clifford [facility] 12-28-2023 21:00-0400 SaO2% (BldA) [Mass fraction] 96 % Rusty Clifford [facility] 12-28-2023 21:00-0400 Systolic blood pressure 164 mm[Hg] Rusty Clifford [facility] 12-28-2023 20:27-0400 Body temperature 98.24 [degF] Rusty Clifford [facility] 12-28-2023 20:27-0400 Diastolic blood pressure 86 mm[Hg] Rusty Clifford [facility] 12-28-2023 20:27-0400 Heart rate 95 /min Rusty Clifford [facility] 12-28-2023 20:27-0400 Respiratory rate 16 /min Rusty Clifford [facility] 12-28-2023 20:27-0400 SaO2% (BldA) [Mass fraction] 97 % Rusty Clifford [facility] 12-28-2023 20:27-0400 Systolic blood pressure 154 mm[Hg] Rusty Clifford [facility] 12-21-2023 13:57-0400 Diastolic blood pressure 84 mm[Hg] Marisela Cuevas PLANNING LEAD-APPARATUS ENGINEERING TECHNOLOGIST Work Phone: [facility] [employer] [facility] 12-21-2023 13:57-0400 Heart rate 96 /min Marisela Cuevas PLANNING LEAD-APPARATUS ENGINEERING TECHNOLOGIST Work Phone: [facility] [employer] [facility] 12-21-2023 13:57-0400 Respiratory rate 14 /min Marisela Cuevas PLANNING LEAD-APPARATUS ENGINEERING TECHNOLOGIST Work Phone: [facility] [employer] [facility] 12-21-2023 13:57-0400 Systolic blood pressure 141 mm[Hg] Marisela Cuevas PLANNING LEAD-APPARATUS ENGINEERING TECHNOLOGIST Work Phone: [facility] [employer] [facility] 12-14-2023 14:14-0400 Body height 180.3 cm Suzette Carmenp PA Work Phone: [facility] [employer] [facility] 12-14-2023 14:14-0400 Body mass index (BMI) [Ratio] 29.15 kg/m2 Suzette Romp PA [facility] 12-14-2023 14:14-0400 Body weight 94.8 kg Suzette Romp PA Work Phone: [facility] [employer] [facility] 12-14-2023 14:14-0400 Diastolic blood pressure 87 mm[Hg] Suzette Carmenp PA Work Phone: [facility] 12-14-2023 14:14-0400 Heart rate 86 /min Suzette Romp PA Work Phone: [facility] 12-14-2023 14:14-0400 Respiratory rate 18 /min Suzette Romp PA Work Phone: [facility] 12-14-2023 14:14-0400 Systolic blood pressure 142 mm[Hg] Suzette Romp PA Work Phone: [facility] 12-09-2023 11:55-0400 Body temperature 97.5 [degF] Amy Sinhg MD Work Phone: [facility] 12-09-2023 11:55-0400 Diastolic blood pressure 70 mm[Hg] Amy Singh MD Work Phone: [facility] 12-09-2023 11:55-0400 Heart rate 75 /min Amy Singh MD Work Phone: [facility] 12-09-2023 11:55-0400 SaO2% (BldA) [Mass fraction] 99 % Amy Singh MD Work Phone: [facility] 12-09-2023 11:55-0400 Systolic blood pressure 125 mm[Hg] Amy Singh MD Work Phone: [facility] 12-09-2023 09:14-0400 Respiratory rate 18 /min Amy Singh MD Work Phone: [facility] 12-05-2023 05:53-0400 Body mass index (BMI) [Ratio] 30.29 kg/m2 Amy Singh MD Work Phone: [facility] [employer] [facility] 12-05-2023 05:53-0400 Body weight 98.5 kg Amy Singh MD Work Phone: [facility] 12-03-2023 00:06-0400 Body height 180.3 cm Amy Singh MD Work Phone: [facility] 12-02-2023 10:21-0400 Body height 180.3 cm Jhon Gross MD Work Phone: [facility] [employer] [facility] 12-02-2023 10:21-0400 Body mass index (BMI) [Ratio] 29.29 kg/m2 Jhon Gross MD Work Phone: [facility] 12-02-2023 10:21-0400 Body temperature 97.39 [degF] Jhon Gross MD Work Phone: [facility] 12-02-2023 10:21-0400 Body weight 95.2 kg Jhon Gross MD Work Phone: [facility] 12-02-2023 10:21-0400 Diastolic blood pressure 88 mm[Hg] Jhon Gross MD Work Phone: [facility] 12-02-2023 10:21-0400 Heart rate 84 /min Jhon Gross MD Work Phone: [facility] 12-02-2023 10:21-0400 Respiratory rate 14 /min Jhon Gross MD Work Phone: [facility] 12-02-2023 10:21-0400 Systolic blood pressure 142 mm[Hg] Jhon Gross MD Work Phone: [facility] 11-26-2023 11:54-0400 Diastolic blood pressure 82 mm[Hg] Jhon Gross MD Work Phone: [facility] 11-26-2023 11:54-0400 Heart rate 93 /min Jhon Gross MD Work Phone: [facility] 11-26-2023 11:54-0400 Respiratory rate 14 /min Jhon Gross MD Work Phone: [facility] 11-26-2023 11:54-0400 Systolic blood pressure 141 mm[Hg] Jhon Gross MD Work Phone: [facility] [employer] [facility] 11-25-2023 14:53-0400 Diastolic blood pressure 87 mm[Hg] Marisela Cuevas PLANNING LEAD-APPARATUS ENGINEERING TECHNOLOGIST Work Phone: [facility] 11-25-2023 14:53-0400 Heart rate 99 /min Marisela Cuevas PLANNING LEAD-APPARATUS ENGINEERING TECHNOLOGIST Work Phone: [facility] 11-25-2023 14:53-0400 Respiratory rate 16 /min Marisela Cuevas PLANNING LEAD-APPARATUS ENGINEERING TECHNOLOGIST Work Phone: [facility] [employer] [facility] 11-25-2023 14:53-0400 Systolic blood pressure 122 mm[Hg] Marisela Cuevas PLANNING LEAD-APPARATUS ENGINEERING TECHNOLOGIST Work Phone: [facility] [employer] [facility] 11-18-2023 11:30-0400 Diastolic blood pressure 81 mm[Hg] Marisela Cuevas PLANNING LEAD-APPARATUS ENGINEERING TECHNOLOGIST Work Phone: [facility] 11-18-2023 11:30-0400 Heart rate 103 /min Marisela Cuevas PLANNING LEAD-APPARATUS ENGINEERING TECHNOLOGIST Work Phone: [facility] 11-18-2023 11:30-0400 Respiratory rate 12 /min Marisela Cuevas PLANNING LEAD-APPARATUS ENGINEERING TECHNOLOGIST Work Phone: [facility] [employer] [facility] 11-18-2023 11:30-0400 Systolic blood pressure 121 mm[Hg] Marisela Cuevas PLANNING LEAD-APPARATUS ENGINEERING TECHNOLOGIST Work Phone: [facility] [employer] [facility] 11-11-2023 13:35-0400 Diastolic blood pressure 81 mm[Hg] Marisela Cuevas PLANNING LEAD-APPARATUS ENGINEERING TECHNOLOGIST Work Phone: [facility] [employer] [facility] 11-11-2023 13:35-0400 Heart rate 98 /min Marisela Cuevas PLANNING LEAD-APPARATUS ENGINEERING TECHNOLOGIST Work Phone: [facility] [employer] [facility] 11-11-2023 13:35-0400 Respiratory rate 16 /min Marisela Cuevas PLANNING LEAD-APPARATUS ENGINEERING TECHNOLOGIST Work Phone: [facility] 11-11-2023 13:35-0400 Systolic blood pressure 125 mm[Hg] Marisela Cuevas APRN-APPARATUS ENGINEERING TECHNOLOGIST Work Phone: [facility] 11-04-2023 10:46-0400 Diastolic blood pressure 83 mm[Hg] Mariselavladimir Cuevas APRN-APPARATUS ENGINEERING TECHNOLOGIST Work Phone: [facility] 11-04-2023 10:46-0400 Heart rate 87 /min Marisela Mason BRIGGSN-APPARATUS ENGINEERING TECHNOLOGIST Work Phone: [facility] 11-04-2023 10:46-0400 Respiratory rate 14 /min Mariselavladimir Cuevas APRN-APPARATUS ENGINEERING TECHNOLOGIST Work Phone: [facility] 11-04-2023 10:46-0400 Systolic blood pressure 129 mm[Hg] Mariselavladimir Cuevas APRN-APPARATUS ENGINEERING TECHNOLOGIST Work Phone: [facility] [facility] 12:07-0400 Body temperature 97.9 [degF] [address] 10-16-2023 12:07-0400 Diastolic blood pressure 76 mm[Hg] [address] 10-16-2023 12:07-0400 Heart rate 83 /min [address] 10-16-2023 12:07-0400 Respiratory rate 20 /min [address] 10-16-2023 12:07-0400 SaO2% (BldA) [Mass fraction] 99 % [address] 10-16-2023 12:07-0400 Systolic blood pressure 118 mm[Hg] [address] 10-16-2023 11:54-0400 Body height 180.[address] 10-16-2023 11:54-0400 Body mass index (BMI) [Ratio] 31.55 kg/m2 [address] 10-16-2023 11:54-0400 Body weight 102.[address] 10-01-2023 13:03-0400 Body height 180.34 cm DO Randy Furlong Work Phone: [facility] 10-01-2023 13:03-0400 Body mass index (BMI) [Ratio] 31.6 kg/m2 DO Randy Furlong Work Phone: [facility] 10-01-2023 13:03-0400 Body weight 102.96 kg DO Randy Furlong Work Phone: [facility] 10-01-2023 13:03-0400 Diastolic blood pressure 62 mm[Hg] DO Randy Furlong Work Phone: [facility] 10-01-2023 13:03-0400 Heart rate 80 /min DO Randy Furlong Work Phone: [facility] 10-01-2023 13:03-0400 Respiratory rate 18 /min DO Randy Furlong Work Phone: [facility] 10-01-2023 13:03-0400 SaO2% (BldA) [Mass fraction] 100 % DO Randy Furlong Work Phone: [facility] 10-01-2023 13:03-0400 Systolic blood pressure 113 mm[Hg] DO Randy Furlong Work Phone: [facility] 08-20-2023 10:14-0400 Body height 180.3 cm Jhon Gross MD Work Phone: [facility] [employer] [facility] 08-20-2023 10:14-0400 Body mass index (BMI) [Ratio] 32.39 kg/m2 Jhon Gross MD Work Phone: [facility] [employer] [facility] 08-20-2023 10:14-0400 Body weight 105.33 kg Jhon Gross MD Work Phone: [facility] 08-20-2023 10:14-0400 Diastolic blood pressure 81 mm[Hg] Jhon Gross MD Work Phone: [facility] 08-20-2023 10:14-0400 Heart rate 84 /min Jhon Gross MD Work Phone: [facility] 08-20-2023 10:14-0400 Respiratory rate 18 /min Jhon rGoss MD Work Phone: [facility] 08-20-2023 10:14-0400 Systolic blood pressure 128 mm[Hg] Jhon Gross MD Work Phone: [facility] 07-30-2023 15:05-0400 Body height 180.3 cm Christy He MD Work Phone: [facility] 07-30-2023 15:05-0400 Body mass index (BMI) [Ratio] 32.26 kg/m2 Christy He MD Work Phone: [facility] 07-30-2023 15:05-0400 Body weight 104.87 kg Christy He MD Work Phone: [facility] 07-30-2023 15:05-0400 Diastolic blood pressure 68 mm[Hg] Christy He MD Work Phone: [facility] 07-30-2023 15:05-0400 Systolic blood pressure 110 mm[Hg] Christy He MD Work Phone: [facility] 04-28-2023 08:07-0500 Body height 180.3 cm Christy He MD Work Phone: [facility] 04-28-2023 08:07-0500 Body mass index (BMI) [Ratio] 30.42 kg/m2 Christy He MD Work Phone: [facility] 04-28-2023 08:07-0500 Body weight 98.88 kg Christy He MD Work Phone: [facility] 04-28-2023 08:07-0500 Diastolic blood pressure 80 mm[Hg] Christy He MD Work Phone: [facility] 04-28-2023 08:07-0500 Heart rate 74 /min Christy He MD Work Phone: [facility] 04-28-2023 08:07-0500 Respiratory rate 16 /min Christy He MD Work Phone: [facility] 04-28-2023 08:07-0500 Systolic blood pressure 120 mm[Hg] Christy He MD Work Phone: [facility] 04-10-2023 15:17-0500 Blood Pressure Location Sandrita NILL [facility] [place] 04-10-2023 15:17-0500 Diastolic blood pressure 80 mm[Hg] Sandrita NILL [facility] [place] 04-10-2023 15:17-0500 Heart rate 72 /min Sandrita NILL [facility] [place] 04-10-2023 15:17-0500 Respiratory rate 16 /min Sandrita NILL [facility] 04-10-2023 15:17-0500 Systolic blood pressure 116 mm[Hg] Sandrita NILL [facility] 04-02-2023 11:41-0500 Body mass index (BMI) [Ratio] 30.68 kg/m2 Evan Jay DO Work Phone: [facility] 04-02-2023 11:41-0500 Body weight 99.79 kg Evan Jay DO Work Phone: [facility] 04-02-2023 11:41-0500 Diastolic blood pressure 72 mm[Hg] Evan Jay DO Work Phone: [facility] 04-02-2023 11:41-0500 Systolic blood pressure 124 mm[Hg] Evan Jay DO Work Phone: [facility] 09-29-2022 14:29-0400 Body height 180.34 cm Randy G Furlong Work Phone: Located within [facility] [address] DO Work Phone: 09-29-2022 14:29-0400 Body mass index (BMI) [Ratio] 31.52 kg/m2 Randy G Furlong Work Phone: Located within [facility] [address] DO Work Phone: 09-29-2022 14:29-0400 Body surface area Derived from formula 2.22 m2 Randy G Furlong Work Phone: Located within [facility] 250 DO Work Phone: 09-29-2022 14:29-0400 Body weight 102.51 kg Randy G Furlong Work Phone: Located [facility] 250 DO Work Phone: 09-29-2022 14:29-0400 Diastolic blood pressure 88 mm[Hg] Randy G Furlong Work Phone: Located [facility] [address] DO Work Phone: 09-29-2022 14:29-0400 Heart rate 76 /min Randy G Furlong Work Phone: Located [facility] 250 DO Work Phone: 09-29-2022 14:29-0400 Systolic blood pressure 138 mm[Hg] Randy G Furlong Work Phone: Located within [facility] 250 DO Work Phone: 09-12-2022 14:56-0400 Body height 180.34 cm Randy G Furlong Work Phone: Located [facility] 250 DO Work Phone: 09-12-2022 14:56-0400 Body mass index (BMI) [Ratio] 30.96 kg/m2 Randy G Furlong Work Phone: Located within [facility] [employer] 250 DO Work Phone: 09-12-2022 14:56-0400 Body surface area Derived from formula 2.2 m2 Randy G Furlong Work Phone: Located [facility] [address] DO Work Phone: 09-12-2022 14:56-0400 Body weight 100.7 kg Randy G Furlong Work Phone: Located [facility] [employer] 250 DO Work Phone: 09-12-2022 14:56-0400 Diastolic blood pressure 88 mm[Hg] Randy G Furlong Work Phone: Located [facility] [employer] [address] DO Work Phone: 09-12-2022 14:56-0400 Heart rate 78 /min Randy G Furlong Work Phone: Located [facility] [employer] 250 DO Work Phone: 09-12-2022 14:56-0400 Systolic blood pressure 132 mm[Hg] Randy G Furlong Work Phone: Located [facility] [address] DO Work Phone: 08-22-2022 09:47-0400 Diastolic blood pressure 100 mm[Hg] Randy G Furlong Work Phone: Located within [facility] 250 DO Work Phone: 08-22-2022 09:47-0400 Systolic blood pressure 142 mm[Hg] Randy G Furlong Work Phone: Located [facility] 250 DO Work Phone: 08-22-2022 09:46-0400 Body height 180.34 cm Randy G Furlong Work Phone: Located [facility] [employer] 250 DO Work Phone: 08-22-2022 09:46-0400 Body mass index (BMI) [Ratio] 30.68 kg/m2 Randy G Furlong Work Phone: Located [facility] [employer] 250 DO Work Phone: 08-22-2022 09:46-0400 Body surface area Derived from formula 2.2 m2 Randy Jaramillo Furlong Work Phone: Located within [facility] [employer] [facility] 250 DO Work Phone: 08-22-2022 09:46-0400 Body weight 99.79 kg Randy Jaramillo Furlong Work Phone: Located [facility] [employer] 250 DO Work Phone: 08-22-2022 09:46-0400 Diastolic blood pressure 102 mm[Hg] Randy Jaramillo Furlong Work Phone: Located [facility] [employer] 250 DO Work Phone: 08-22-2022 09:46-0400 Heart rate 74 /min Randy Normanlong Work Phone: Located [facility] [employer] 250 DO Work Phone: 08-22-2022 09:46-0400 Systolic blood pressure 148 mm[Hg] Randy G Furlong Work Phone: Located [facility] [employer] [address] DO Work Phone: 07-21-2022 08:15-0400 Diastolic blood pressure 88 mm[Hg] Randy G Furlong Work Phone: Located [facility] [employer] 250 DO Work Phone: 07-21-2022 08:15-0400 Systolic blood pressure 122 mm[Hg] Randy G Furlong Work Phone: Located [facility] [place] 250 DO Work Phone: 07-21-2022 08:14-0400 Body height 180.34 cm Randy Normanlong Work Phone: Located [facility] DO Work Phone: 07-21-2022 08:14-0400 Body mass index (BMI) [Ratio] 30.82 kg/m2 Randy Jaramillo Furlong Work Phone: Located [facility] [employer] 250 DO Work Phone: 07-21-2022 08:14-0400 Body surface area Derived from formula 2.2 m2 Randy Normanlong Work Phone: Located [facility] [employer] [address] DO Work Phone: 07-21-2022 08:14-0400 Body weight 100.25 kg Randy Normanlong Work Phone: Located [facility] [employer] [address] DO Work Phone: 07-21-2022 08:14-0400 Diastolic blood pressure 86 mm[Hg] Randy Normanlong Work Phone: Located [facility] [employer] [address] DO Work Phone: 07-21-2022 08:14-0400 Heart rate 59 /min Randy Normanlong Work Phone: Located [facility] [employer] [address] DO Work Phone: 07-21-2022 08:14-0400 Systolic blood pressure 132 mm[Hg] Randy G Furlong Work Phone: [facility] [employer] [address] DO Work Phone: 07-14-2022 14:02-0400 Body temperature 99.32 [degF] Reid Bauer [facility] 07-14-2022 14:02-0400 Diastolic blood pressure 86 mm[Hg] Reid Bauer [facility] 07-14-2022 14:02-0400 Heart rate 76 /min Reid Bauer [facility] 07-14-2022 14:02-0400 SaO2% (BldA) [Mass fraction] 98 % Reid Bauer [facility] 07-14-2022 14:02-0400 Systolic blood pressure 120 mm[Hg] Reid Bauer [facility] 11-11-2021 19:25-0400 Body height 180.34 cm Jesusita Marlen Other [employer] Other 11-11-2021 19:25-0400 Body mass index (BMI) [Ratio] 28.59 kg/m2 Jesusita Gee Other [employer] Other 11-11-2021 19:25-0400 Body temperature 98.1 [degF] Jesusita Marlen Other [employer] Other 11-11-2021 19:25-0400 Body weight 92.99 kg Jesusita Marlen Other [employer] Other 11-11-2021 19:25-0400 Respiratory rate 18 /min Jesusita Gee Other [employer] Other 11-11-2021 19:25-0400 SaO2% (BldA) [Mass fraction] 96 % Jesusita Gee Other [employer] Other Encounters Encounter Date Encounter Type Care Provider Facility Start: 10-12-2024 End: 10-12-2024 Evaluation and management of inpatient JHON GROSS [facility] Start: 10-11-2024 End: 10-11-2024 Evaluation and management of inpatient RICHIE HANNA [facility] Start: 2024 End: 10-11-2024 Orders Only Richie Hanna PLANNING LEAD-APPARATUS ENGINEERING TECHNOLOGIST Work Phone: [facility] Internal Medicine - Family Medicine Comment on above: 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 Start: 10-05-2024 End: 10-05-2024 Postop follow up visit related to original px Marisela Cuevas PLANNING LEAD-APPARATUS ENGINEERING TECHNOLOGIST Work Phone: [facility] Comment on above: Breast wound, left, sequela (Primary Dx); Infection of deep incisional surgical site after procedure, subsequent encounter Start: 10-05-2024 End: 10-05-2024 ambulatory MARISELA CUEVAS [facility] Start: 09-26-2024 ambulatory RICHIE HANNA Facil ity: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 - [employer] Start: 09-22-2024 End: 09-22-2024 ambulatory JHON GROSS [facility] Start: 09-22-2024 End: 09-23-2024 Telephone encounter Josue Mccain DO, PhD Work Phone: [facility] [place] Start: 09-20-2024 End: 09-29-2024 Orders Only Richie Hanna APRN-APPARATUS ENGINEERING TECHNOLOGIST Work Phone: [facility] Internal Medicine - Family Medicine Start: 09-19-2024 End: 09-20-2024 Refill Richie Hanna APRN-ESPERANZA Work Phone: [facility] Internal Medicine - Family Medicine Start: 09-16-2024 End: 09-16-2024 E-mail encounter from caregiver Alessandra Yahaira GORDON Work Phone: Hematology/Oncology Start: 09-16-2024 End: 09-16-2024 Follow-up encounter Alessandra Syed APRN.CNP Work Phone: Hematology/Oncology Comment on above: Follow up Start: 09-16-2024 End: 09-16-2024 Postop follow up visit related to original px Geno Pierce APRN.CNP Work Phone: Plastic Surgery Comment on above: Post-operative state (Primary Dx); S/P breast reconstruction; History of breast cancer Start: 09-16-2024 End: 09-16-2024 Patient encounter procedure Alessandra Syed APRN.CNP Work Phone: Hematology/Oncology Start: 09-16-2024 End: 09-16-2024 ambulatory Alessandra Syed APRN.CNP Work Phone: Hematology/Oncology Comment on above: Breast cancer metast asized to liver, unspecified laterality (HCC) (Primary Dx); Encounter for medication monitoring Start: 09-13-2024 End: 09-14-2024 ambulatory [facility] Start: 09-08-2024 End: 09-08-2024 Office outpatient visit 5 minutes Shereen Smallwood PA-C Work Phone: [facility] Comment on above: Breast wound, left, sequela (Primary Dx); Infection of deep incisional surgical site after procedure, subsequent encounter; Malignant neoplasm of lower-inner quadrant of right breast of female, estrogen receptor positive (CMS-HCC); Mycobacterium abscessus infection; S/P breast reconstruction, bilateral Start: 09-08-2024 End: 09-08-2024 ambulatory SHEREEN SMALLWOOD [facility] Start: 09-07-2024 End: 09-08-2024 Radiation Oncology Note Sam Melo MD Work Phone: Radiation Oncology Comment on above: Procedure Simulation Note Completion Note Start: 09-07-2024 End: 09-08-2024 Patient encounter procedure Placement Neus Ca Ll Work Phone: Neurosurgery Comment on above: Secondary malignant neoplasm of brain (HCC) (Primary Dx) Start: 09-07-2024 End: 09-07-2024 Subsequent hospital visit by physician Mri Main Ca (1.5t) Work Phone: Radiology Comment on above: 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] Start: 09-07-2024 End: 09-07-2024 ambulatory Josue Mccain DO, PhD Work Phone: [facility] Comment on above: Cancer of right [address] metastatic to brain (HCC) (Primary Dx) Start: 09-05-2024 End: 09-05-2024 Telemedicine consultation with patient Marisela Cisneros MD Work Phone: Radiation Oncology Start: 09-05-2024 End: 09-05-2024 Telephone encounter Dee Dee Buck RN [facility] Start: 09-05-2024 End: 09-05-2024 ambulatory Marisela Cisneros MD Work Phone: Radiation Oncology Comment on above: 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 Start: 08-31-2024 End: 09-07-2024 Telephone encounter Jhon Gross MD Work Phone: [facility] Start: 08-26-2024 End: 09-01-2024 Evaluation and management of inpatient RICHIE HANNA Facility:[facility] Start: 08-25-2024 End: 08-25-2024 Orders Only Richie Hanna PLANNING LEAD-APPARATUS ENGINEERING TECHNOLOGIST Work Phone: [facility] Start: 08-24-2024 ambulatory Shereen Smallwood Faci lity:[facility] Start: 08-18-2024 End: 08-18-2024 Postop follow up visit related to original px Shereen Smallwood PA-C Work Phone: [facility] Comment on above: Breast wound, left, sequela (Primary Dx); Complicated wound infection Start: 08-18-2024 End: 08-18-2024 ambulatory SHEREEN SMALLWOOD [facility] Start: 08-17-2024 End: 08-17-2024 ambulatory GENERIC RESEARCH [facility] Start: 08-16-2024 End: 08-17-2024 ambulatory HERMAN [facility] Start: 08-12-2024 End: 08-12-2024 Telephone encounter Jhon Gross MD Work Phone: [facility] Start: 08-12-2024 End: 08-12-2024 Evaluation and management of inpatient JHON GROSS [facility] Start: 08-11-2024 End: 08-11-2024 Evaluation and management of inpatient RICHIE HANNA [facility] Start: 08-10-2024 End: 08-10-2024 ambulatory [facility] Start: 08-10-2024 End: 08-10-2024 Transitional care manage srvc 14 day discharge Dhruv [facility] DO Work Phone: [facility] Internal Medicine - Family Medicine Comment on above: Mycobacterium absces nathan infection (Primary Dx); Malignant neoplasm of lower-inner quadrant of right breast of female, estrogen receptor positive ([facility]-HCC) Start: 08-10-2024 End: 08-12-2024 Follow-up encounter Bobby Christy MD Work Phone: Hematology/Oncology Start: 08-10-2024 End: 08-11-2024 Admission to [facility] Phone Call Provider 4 [facility] Start: 08-09-2024 End: 08-09-2024 Telephone encounter Jhon Gross MD Work Phone: [facility] Start: 08-08-2024 End: 08-08-2024 [facility] Start: 08-08-2024 End: 08-08-2024 Postop follow up visit related to original px Shereen DUFFY-C Work Phone: [facility]astic [facility] Comment on above: Breast wound, left, sequela (Primary Dx); Complicated wound infection Start: 08-04-2024 End: 08-04-2024 Orders Only Shereen Smallwood PA-C Work Phone: [facility] Start: 08-03-2024 End: 08-03-[address] [facility] Start: 08-03-2024 End: 08-03-2024 Postop follow up visit related to original px Shereen Smallwood PA-C Work Phone: [facility] Comment on above: Breast wound, left, sequela (Primary Dx); Mycobacterium abscessus infection; Complicated wound infection Start: 07-27-2024 End: 07-27-2024 E-mail encounter from caregiver [facility] Provider Hematology/Oncology Start: 07-27-2024 End: 07-27-2024 Office outpatient visit 10 minutes Raymond Sepulveda MD Work Phone: [facility] Gynecology Oncology, A Department of [facility] Comment on above: Pelvic mass in femal e (Primary Dx) Start: 07-27-2024 End: 07-29-2024 ambulatory [facility] Provider Hematology/Oncology Comment on above: Xeloda restart Start: 07-22-2024 End: 07-27-2024 Telephone encounter Bobby Christy MD Work Phone: Hematology/Oncology Comment on above: 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 Start: 07-18-2024 End: 07-18-2024 Telephone encounter Jhon Gross MD Work Phone: [facility]astic [facility] Start: 07-15-2024 End: 07-15-2024 Evaluation and management of inpatient [facility] Start: 07-15-2024 End: 07-15-2024 Admission to [facility] Phone Call Provider [facility] Start: 07-14-2024 End: 07-14-2024 ambulatory [facility] Start: 07-14-2024 End: 07-14-2024 Office outpatient visit 25 minutes [facility] PLANNING LEAD-APPARATUS ENGINEERING TECHNOLOGIST Work Phone: [facility] Comment on above: Malignant neoplasm o f lower-inner quadrant of right breast of female, estrogen receptor positive (CMS-HCC) (Primary Dx); Mycobacterium abscessus infection; Essential hypertension; Acute deep vein thrombosis (DVT) of calf muscle vein of left lower extremity (CMS-HCC); S/P right heart catheterization Start: 07-13-2024 End: 07-13-2024 Telephone encounter Jhon Gross MD [facility] Start: 07-11-2024 End: 07-11-2024 ambulatory [facility] Start: 07-11-2024 End: 07-11-2024 Postop follow up visit related to original px Marisela Cuevas PLANNING LEAD-APPARATUS ENGINEERING TECHNOLOGIST Work Phone: [facility] Comment on above: Encounter for postop erative care (Primary Dx); Breast wound, left, sequela; S/P breast reconstruction, bilateral; Mycobacterium abscessus infection Start: 07-11-2024 End: 07-11-2024 Telephone encounter Marisela Yumi Mason PLANNING LEAD-APPARATUS ENGINEERING TECHNOLOGIST Work Phone: [facility] Start: 07-11-2024 End: 07-11-[address] [facility] Start: 07-06-2024 End: 07-06-2024 Postop follow up visit related to original px Marisela Cuevas PLANNING LEAD-APPARATUS ENGINEERING TECHNOLOGIST Work Phone: [facility] Comment on above: Encounter for postop erative care (Primary Dx); Seroma of breast; Breast wound, left, sequela; S/P breast reconstruction, bilateral Start: 07-06-2024 End: 07-06-2024 [facility] Start: 07-06-2024 End: 07-06-2024 [facility] Start: 07-01-2024 End: 07-01-2024 ambulatory GENERIC RESEARCH [facility] Start: 06-30-2024 End: 06-30-2024 ambulatory GENERIC RESEARCH [facility] Start: 06-30-2024 End: 06-30-2024 ambulatory [facility] Start: 06-29-2024 End: 06-29-2024 Postop follow up visit related to original monalisa Cuevas PLANNING LEAD-APPARATUS ENGINEERING TECHNOLOGIST Work Phone: [facility] Comment on above: Encounter for postop erative care (Primary Dx); Seroma of breast; Breast wound, left, sequela; Mycobacterium abscessus infection; S/P breast reconstruction, bilateral Start: 06-29-2024 End: 06-29-2024 ambulatory [facility] Start: 06-29-2024 End: 06-29-2024 ambulatory RAYMOND Berry DERICK [facility] Start: 06-29-2024 End: 06-29-2024 Office outpatient visit 10 minutes Raymond Sepulveda MD Work Phone: [facility] Gynecology Oncology, A Department of [facility] Comment on above: Pelvic mass in femal e (Primary Dx) Start: 06-24-2024 End: 06-27-2024 Telephone encounter Viviane Lopez CMA [facility] Physicians Plastic and Reconstructive Surgery Start: 06-22-2024 End: 06-22-2024 Postop follow up visit related to original monalisa Cuevas PLANNING LEAD-APPARATUS ENGINEERING TECHNOLOGIST Work Phone: [facility] Comment on above: Encounter for postop erative care (Primary Dx); Breast wound, left, sequela Start: 06-22-2024 End: 06-22-2024 [facility] Start: 06-20-2024 End: 06-20-2024 Chart abstracting Kesha Apple MD Work Phone: Infectious Disease Start: 06-20-2024 End: 06-27-2024 Telephone encounter Viviane Lopez CMA [facility] Plastic and Reconstructive Surgery Start: 06-16-2024 End: 06-16-2024 Telephone encounter Noreen Bro RN [facility] Internal Medicine - Family Medicine Comment on above: Care Navigation Start: 06-15-2024 End: 06-15-2024 Evaluation and management of inpatient LEONARDO IBARRA [facility] Start: 06-13-2024 ambulatory [facility] Start: 06-12-2024 ambulatory [facility] Start: 06-11-2024 End: 06-15-2024 Evaluation and management of inpatient GINO FLOWER [facility] Start: 06-10-2024 End: 06-15-2024 Evaluation and management of inpatient RICHIE [facility] Start: 06-10-2024 End: 06-10-2024 Telephone encounter Kendra Lewis [facility] Call Allen garcia Comment on above: Breast Problem Start: 06-08-2024 End: 06-08-2024 ambulatory TRISH LOMBARDO [facility] Start: 06-08-2024 End: 06-08-2024 Postop follow up visit related to original px Trish Grupo CONTE Work Phone: [facility] Plastic and Reconstructive Surgery Comment on above: Encounter for postop erative care (Primary Dx); Breast wound, left, sequela; Erythema of breast; Seroma of breast; Mycobacterium abscessus infection; S/P breast reconstruction, bilateral; Acquired absence of breast, bilateral; History of breast cancer Start: 06-08-2024 End: 06-08-2024 ambulatory RAYMOND SEPULVEDA [facility] Start: 06-08-2024 End: 06-08-2024 Office outpatient visit 10 minutes Raymond Sepulveda MD Work Phone: [facility] Gynecology Oncology, A Department of [facility] Comment on above: Malignant neoplasm o f lower-inner quadrant of right breast of female, estrogen receptor positive ([facility]) (Primary Dx); Pelvic mass in female Start: 06-03-2024 End: 06-03-2024 Patient encounter procedure Randy Calle DO Work Phone: [facility] Work Phone: Start: 06-03-2024 End: 06-03-2024 ambulatory Randy Calle DO Work Phone: [facility] Work Phone: Start: 06-01-2024 End: 06-01-2024 Bamboo flowsheet Evan Jay DO Work Phone: [facility] Start: 06-01-2024 End: 06-03-2024 Bamboo flowsheet Evan Jay DO Work Phone: [facility] Start: 06-01-2024 End: 06-03-2024 Clinisync Result Encounter Evan Jay DO Work Phone: [facility] External Department Unsolicited Start: 06-01-2024 End: 06-01-2024 Telephone encounter Marisela Cuevas APRN-ESPERANZA Work Phone: [facility] Start: 06-01-2024 End: 06-01-2024 ambulatory EVAN JAY Not Available Start: 06-01-2024 End: 06-01-2024 Patient encounter procedure Evan Jay DO Work Phone: [facility] Work Phone: Start: 06-01-2024 End: 06-01-2024 Periodic preventive med est patient 40-64yrs Evan Jay DO Work Phone: [facility] Comment on above: Well woman exam with routine gynecological exam; Breast cancer screening by mammogram; Postmenopausal state Start: 06-01-2024 End: 06-01-2024 ambulatory [facility] Start: 06-01-2024 End: 06-01-2024 Postop follow up visit related to original px Marisela Cuevas APRN-APPARATUS ENGINEERING TECHNOLOGIST Work Phone: [facility] Comment on above: Encounter for postop erative care (Primary Dx); Breast wound, left, sequela; Seroma of breast; Mycobacterium abscessus infection; S/P breast reconstruction, bilateral Start: 05-31-2024 ambulatory JUHI Jean [facility] Start: 05-24-2024 Evaluation and management of inpatient ADA JACQUES [facility] Start: 05-23-2024 Emergency department patient visit KAVON VEGAS [facility] Start: 05-23-2024 End: 05-27-2024 Evaluation and management of inpatient HARIS LAY [facility] Start: 05-23-2024 End: 05-23-2024 Telephone encounter Raymond Sepulveda MD Work Phone: [facility] Gynecology Oncology, A Department of [facility] Comment on above: Procedure Start: 05-22-2024 End: 05-22-2024 Emergency department patient visit Bárbara Jettjason [facility] Start: 05-20-2024 End: 05-20-2024 ambulatory GENERIC RESEARCH [facility] Start: 05-20-2024 End: 05-20-2024 ambulatory HERMAN LUI [facility] Start: 05-19-2024 End: 05-19-2024 Discharged Recurring Randy Normanlong DO Work Phone: [facility]In[facility] - O/P Work Phone: Start: 05-19-2024 Registered Recurring Randy Titus jose eduardoong DO Work Phone: [facility] - [facility]/P Work Phone: Start: 05-19-2024 End: 05-19-2024 ambulatory Randylinnea Normanlong DO Work Phone: [facility] Work Phone: Start: 05-18-2024 End: 05-18-2024 ambulatory SHEREEN SMALLWOOD [facility] Start: 05-18-2024 End: 05-18-2024 Postop follow up visit related to original px Shereen Smallwood PA-C Work Phone: [facility] Comment on above: Breast wound, left, sequela (Primary Dx) Start: 05-12-2024 End: 05-12-2024 [facility] to [facility] Start: 05-12-2024 End: 05-12-2024 Telephone encounter Bobby Otero [facility] Division of [facility] - MRI Start: 05-12-2024 End: 05-12-2024 Evaluation and management of inpatient RICHIE HANNA [facility] Start: 05-02-2024 End: 05-13-2024 Evaluation and management of inpatient JHON GROSS [facility] Start: 05-01-2024 Non-patient / Non-visit Randy Calle DO Work Phone: [facility] Work Phone: Start: 04-29-2024 End: 05-02-2024 Documentation procedure Marisela Cuevas APRN-APPARATUS ENGINEERING TECHNOLOGIST Work Phone: [facility] Phys[facility] Plastic and Reconstructive Surgery Start: 04-28-2024 End: 04-28-2024 Postop follow up visit related to original px Jhon Gross MD Work Phone: [facility] Physicians Plastic and Reconstructive Surgery Comment on above: Encounter for postop erative care (Primary Dx); Seroma of breast; S/P breast reconstruction, bilateral; Breast wound, left, sequela Start: 04-28-2024 End: 04-28-2024 ambulatory JHON CHEEMA [facility] Start: 04-26-2024 End: 04-26-2024 Patient encounter procedure Evan Thompson DO Work Phone: [facility] [place] [facility] Work Phone: Start: 04-26-2024 End: 04-26-2024 ambulatory Quincy Colbert [facility] Work Phone: Start: 04-26-2024 End: 04-26-2024 Telephone encounter Viviane Lopez CMA [facility] Plastic and Reconstructive Surgery Start: 04-22-2024 End: 04-22-2024 Telephone encounter Marisela Cuevas PLANNING LEAD-APPARATUS ENGINEERING TECHNOLOGIST Work Phone: [facility] Start: 04-21-2024 [...] -up Start: 04-21-2024 End: 04-21-2024 ambulatory EVAN JAY Not Available Start: 04-20-2024 End: 04-20-2024 Postop follow up visit related to original px Marisela Cuevas PLANNING LEAD-APPARATUS ENGINEERING TECHNOLOGIST Work Phone: [facility] Comment on above: Encounter for postop erative care (Primary Dx); Seroma of breast; S/P breast reconstruction, bilateral; Breast wound, left, sequela Start: 04-20-2024 End: 04-20-2024 ambulatory MORGANZA Yumi [facility] Start: 04-20-2024 End: 04-20-2024 ambulatory [facility] Start: 04-13-2024 End: 04-13-2024 Bamboo flowsheet Nasreen Li [facility] Work Phone: [facility] Start: 04-13-2024 End: 04-13-2024 Bamboo flowsheet [facility]reen [facility] Work Phone: [facility] Start: 04-13-2024 End: 04-13-2024 Postop follow up visit related to original px Marisela Cuevas PLANNING LEAD-APPARATUS ENGINEERING TECHNOLOGIST Work Phone: [facility] Comment on above: Encounter for postop erative care (Primary Dx); Seroma of breast; S/P breast reconstruction, bilateral; Mycobacterium abscessus infection; Breast wound, left, sequela Start: 04-13-2024 End: 04-13-2024 ambulatory MARISELA Yumi MASON [facility] Start: 04-13-2024 End: 04-13-2024 Office outpatient new 60 minutes Raymond Sepulveda MD Work Phone: [facility] Gynecology Oncology, A Department of [facility] Comment on above: Malignant neoplasm o f lower-inner quadrant of right breast of female, estrogen receptor positive (CMS-HCC) (Primary Dx); Pelvic mass in female Start: 04-13-2024 End: 04-13-2024 Clinical Support Nasreen Li [facility] Work Phone: [facility] Comment on above: 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 (Primary Dx) Start: 04-07-2024 End: 04-07-2024 Clinisync Result Encounter Evan Jay DO Work Phone: [facility] External Department Unsolicited Start: 04-07-2024 End: 04-07-2024 Clinisync Result Encounter Evan Jay DO Work Phone: [facility] External [facility] Unsolicited Start: 04-07-2024 End: 04-07-2024 ambulatory Randy Normanzach DO Work Phone: [facility] Work Phone: Start: 04-07-2024 End: 04-07-2024 Departed Referred Randy Normanlong DO Work Phone: [facility] Start: 04-07-2024 End: 04-07-2024 ambulatory Ulisses GONSALEZ Facility:[id number] Start: 03-30-2024 End: 03-30-2024 Postop follow up visit related to original px Marisela Yumi Mason PLANNING LEAD-APPARATUS ENGINEERING TECHNOLOGIST Work Phone: [facility] Plastic and Reconstructive Surgery Comment on above: Encounter for postop erative care (Primary Dx); S/P breast reconstruction, bilateral; Mycobacterium abscessus infection; Breast wound, left, sequela Start: 03-30-2024 End: 03-30-2024 ambulatory MARISELA CUEVAS [facility] Start: 03-21-2024 End: 03-21-2024 Evaluation and management of inpatient RENO KENYON [facility] Start: 03-21-2024 End: 03-21-2024 Evaluation and management of inpatient JHON GROSS [facility] Start: 03-18-2024 End: 03-18-2024 Evaluation and management of inpatient RICHIE HANNA [facility] Start: 03-18-2024 End: 03-18-2024 Admission to [facility] Phone Call Provider 4 Khushboo Sultana Pre-Admission Clinic On [facility] Start: 03-16-2024 End: 03-16-2024 ambulatory JOSSY MOODY [facility] Start: 03-15-2024 End: 03-15-2024 Telephone encounter Alton Greco [facility] Phys[facility] Surgical Oncology Start: 03-14-2024 End: 03-14-2024 ambulatory Randy Furlong DO Work Phone: [facility] Work Phone: Start: 03-14-2024 End: 03-14-2024 Patient encounter procedure Randy Furlong DO Work Phone: [facility] Amb[facility] Work Phone: Start: 03-10-2024 End: [...] 03-10-2024 End: 03-10-2024 Preprocedural examination done Evan Thompson DO Work Phone: [facility] Start: 03-10-2024 End: 03-10-2024 [facility] Start: 03-10-2024 End: 03-10-2024 Postop follow up visit related to original px Jhon Gross MD Work Phone: [facility] Comment on above: Postoperative visit (Primary Dx); Mycobacterium abscessus infection; S/P breast reconstruction, bilateral; Malignant neoplasm of lower-inner quadrant of right breast of female, estrogen receptor positive ([facility]) Start: 03-03-2024 End: 03-03-2024 Postop follow up visit related to original monalisa Gross MD Work Phone: [facility] Comment on above: Mycobacterium absces nathan infection (Primary Dx); S/P breast reconstruction, bilateral; Malignant neoplasm of lower-inner quadrant of right breast of female, estrogen receptor positive ([facility]) Start: 03-03-2024 End: 03-03-2024 [facility] Start: 03-02-2024 End: 03-02-2024 Telephone encounter Arlet Selby [facility] Call Allen garcia Comment on above: critical lab Start: 02-29-2024 End: 03-17-2024 [facility] Start: 02-26-2024 End: 02-26-2024 Evaluation and management of inpatient [facility] Start: 02-26-2024 End: 02-26-2024 Evaluation and management of inpatient [facility] Start: 02-25-2024 End: 02-25-2024 [facility] Start: 02-23-2024 End: 02-25-2024 Telephone encounter Graciela Borges MANAGER TRANSPORTATION PLANNING [facility] Call Allen garcia Comment on above: Post-op Problem Start: 02-19-2024 ambulatory Rusty Horton Facility: [facility] Start: 02-17-2024 End: 02-17-2024 ambulatory GENERIC RESEARCH [facility] Start: 02-16-2024 End: 02-16-2024 ambulatory HERMAN [facility] Start: 02-15-2024 End: 02-15-2024 Office [...] Start: 02-11-2024 End: 02-11-2024 Patient encounter procedure Randylinnea Normanzach DO Work Phone: [facility] Infect Dis Work Phone: Start: 02-10-2024 End: 02-10-2024 Telephone encounter Yves Coffey MD Work Phone: [facility] Start: 02-10-2024 Registered Recurring Randy lora DO [facility] Work Phone: Start: 02-08-2024 Non-patient / Non-visit Randy Cantung DO Work Phone: [facility] Ambulatory Work Phone: Start: 02-01-2024 End: 02-01-2024 ambulatory YVES COFFEY Not Available Start: 02-01-2024 End: 02-01-2024 Bamboo flowsheet Yves Coffey MD Work Phone: [facility] Start: 02-01-2024 End: 02-01-2024 Jossue Coffey MD Work Phone: [facility] Start: 02-01-2024 Non-patient / Non-visit Randy Calle DO Work Phone: [facility] Work Phone: Start: 01-27-2024 Non-patient / Non-visit Randy Calle DO Work Phone: [facility] Work Phone: Start: 01-27-2024 End: 01-27-2024 Jossue Coffey MD Work Phone: [facility] Start: 01-27-2024 End: 01-27-2024 Jossue Coffey MD Work Phone: [facility] Start: 01-27-2024 End: 01-27-2024 ambulatory YVES COFFEY Not Available Start: 01-26-2024 End: 01-27-2024 Patient encounter procedure Yves Coffey MD Work Phone: [facility] Comment on above: Anaphylaxis, subsequ ent encounter (Primary Dx) Start: 01-25-2024 End: 01-25-2024 Jossue Coffey MD Work Phone: [facility] Start: 01-25-2024 End: 01-25-2024 Jossue Coffey MD Work Phone: [facility] Start: 01-25-2024 End: 01-25-2024 Office outpatient new 60 minutes Yves Coffey MD Work Phone: [facility] Comment on above: Adverse effect of do xycycline, initial encounter (Primary Dx) Start: 01-25-2024 End: 01-25-2024 ambulatory YVES COFFEY Not Available Start: 01-19-2024 Non-patient / Non-visit Randy Furlong DO Work Phone: [facility] Work Phone: Start: 01-15-2024 End: 01-15-2024 ambulatory [facility] ANUSHA [facility] Start: 01-15-2024 End: 01-15-2024 ambulatory HERMAN [facility] Start: 01-14-2024 Non-patient / Non-visit Randy Furlong DO Work Phone: [facility] Work Phone: Start: 01-13-2024 Non-patient / Non-visit Randy Furlong DO Work Phone: [facility] Work Phone: Start: 12-30-2023 End: [...] 12-30-2023 End: 12-30-2023 ambulatory SCOTT [facility] Start: 12-29-2023 Non-patient / Non-visit Randy Furlong DO Work Phone: [facility] Work Phone: Start: 12-29-2023 Registered Recurring DO Randy Furlong [facility] Work Phone: Start: 12-29-2023 End: 12-29-2023 ambulatory DO Randy Calle Work Phone: [facility] Work Phone: Start: 12-29-2023 End: 12-29-2023 Patient encounter procedure [facility] Work Phone: [facility] Work Phone: Start: 12-29-2023 End: 12-29-2023 ambulatory [facility] Start: 12-29-2023 End: 12-29-2023 Postop follow up visit related to original px Shereen Smallwood PA-C Work Phone: [facility] Comment on above: Infection of deep in cisional surgical site after procedure, subsequent encounter (Primary Dx); Malignant neoplasm of lower-inner quadrant of right breast of female, estrogen receptor positive ([facility]) Start: 12-28-2023 End: 12-28-2023 Emergency department patient visit Rusty Horton [facility] Start: 12-21-2023 End: 12-21-2023 ambulatory [facility] Start: 12-21-2023 End: 12-21-2023 Postop follow up visit related to original px Marisela Cuevas PLANNING LEAD-APPARATUS ENGINEERING TECHNOLOGIST Work Phone: [facility] Comment on above: Encounter for postop erative care (Primary Dx); Acquired absence of breast, bilateral; S/P breast reconstruction, bilateral Start: 12-16-2023 End: 12-16-2023 Telephone encounter Deborah SUN [facility] Start: 12-14-2023 End: 12-14-2023 Postop follow up visit related to original px Marisela Cuevas PLANNING LEAD-APPARATUS ENGINEERING TECHNOLOGIST Work Phone: [facility] Plastic and Reconstructive Surgery Comment on above: Encounter for postop erative care (Primary Dx); Acquired absence of breast, bilateral; S/P breast reconstruction, bilateral; Infection of breast implant, subsequent encounter Malignant neoplasm o f lower-inner quadrant of right breast of female, estrogen receptor positive ([facility]) (Primary Dx) Start: 12-14-2023 End: 12-14-2023 ambulatory SUZETTE CARMENClaire [facility] Start: 12-11-2023 End: 12-14-2023 Telephone encounter Mela Berrios RN [facility] Internal Medicine - Family Medicine Comment on above: Transition Of Care Start: 12-11-2023 End: 12-11-2023 ambulatory SANDRITA [facility] Start: 12-09-2023 End: 12-09-2023 Telephone encounter Nabila Mora CMA [facility] Infectious Disease Start: 12-08-2023 End: 12-08-2023 Orders Only Gino Flower APRN-APPARATUS ENGINEERING TECHNOLOGIST Work Phone: [facility] Infectious Disease Comment on above: Acid fast bacillus ( Primary Dx); 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 Start: 12-05-2023 End: 12-09-2023 Evaluation and management of inpatient LILIANE VALLE [facility] Start: 12-04-2023 End: 12-09-2023 Evaluation and management of inpatient EPIFANIO HENRY [facility] Start: 12-03-2023 End: 12-03-2023 Orders Only Gino Flower APRN-APPARATUS ENGINEERING TECHNOLOGIST Work Phone: [facility] Infectious Disease Comment on above: Acid fast bacillus ( Primary Dx) Start: 12-02-2023 End: 12-09-2023 Evaluation and management of inpatient Kayleigh Adames DO Work Phone: [facility] a Division of [facility] - 7 Oncology/Stroke Comment on above: MIRNA (acute kidney in jury) ([facility]) (Primary Dx); Infection of deep incisional surgical site after procedure, initial encounter; 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; Infection of deep incisional surgical site after procedure, subsequent encounter Start: 12-02-2023 End: 12-02-2023 Documentation procedure Gino Flower PLANNING LEAD-APPARATUS ENGINEERING TECHNOLOGIST Work Phone: [facility] Start: 12-02-2023 End: 12-02-2023 Telephone encounter [facility] Comment on above: Transition Of Care Fever Start: 12-02-2023 End: 12-02-2023 ambulatory JHON CHEEMA [facility] Start: 12-02-2023 End: 12-02-2023 Postop follow up visit related to original px Jhon Gross MD Work Phone: [facility] Comment on above: Encounter for postop erative care (Primary Dx); Acquired absence of breast, bilateral; S/P breast reconstruction, bilateral; Infection of breast implant, subsequent encounter Start: 12-01-2023 End: 12-01-2023 ambulatory DO Randy [place] Work Phone: [facility] Work Phone: Start: 12-01-2023 End: 12-01-2023 Patient encounter procedure DO Randy [place] Work Phone: [facility] [place] [facility] Work Phone: Start: 11-30-2023 End: 11-30-2023 ambulatory [facility] Start: 11-28-2023 End: 11-28-2023 Telephone encounter Concha Mcgregor [facility] Zhen garcia Comment on above: Medication Reaction Start: 11-26-2023 End: 11-30-2023 ambulatory [facility] Start: 11-26-2023 End: 11-26-2023 Postop follow up visit related to original px John Gross MD Work Phone: [facility] Comment on above: Cellulitis of left b reast (Primary Dx); S/P breast reconstruction, bilateral Start: 11-26-2023 End: 11-26-2023 ambulatory JHON CHEEMA [facility] Start: 11-25-2023 End: 11-25-2023 [facility] Start: 11-25-2023 End: 11-25-2023 Postop follow up visit related to original px Marisela Cuevas PLANNING LEAD-APPARATUS ENGINEERING TECHNOLOGIST Work Phone: [facility] Comment on above: Encounter for postop erative care (Primary Dx); Acquired absence of breast, bilateral Start: 11-25-2023 End: 11-25-2023 [facility] Start: 11-18-2023 End: 11-18-2023 Postop follow up visit related to original px Marisela Cuevas PLANNING LEAD-APPARATUS ENGINEERING TECHNOLOGIST Work Phone: [facility] Comment on above: Encounter for postop erative care (Primary Dx); Malignant neoplasm of lower-inner quadrant of right breast of female, estrogen receptor positive (CMS-HCC); Acquired absence of breast, bilateral; S/P breast reconstruction, bilateral Start: 11-18-2023 End: 11-18-2023 [facility] Y[facility] Start: 11-11-2023 End: 11-11-2023 Postop follow up visit related to original px Marisela Cuevas PLANNING LEAD-APPARATUS ENGINEERING TECHNOLOGIST Work Phone: [facility] Comment on above: Encounter for postop erative care (Primary Dx); S/P breast reconstruction, bilateral; Malignant neoplasm of lower-inner quadrant of right breast of female, estrogen receptor positive (CMS-HCC); Acquired absence of breast, bilateral Start: 11-11-2023 End: 11-11-2023 [facility] Start: 11-04-2023 End: 11-04-2023 Postop follow up visit related to original monalisa Cuevas PLANNING LEAD-APPARATUS ENGINEERING TECHNOLOGIST Work Phone: [facility] Comment on above: Encounter for postop erative care (Primary Dx); Malignant neoplasm of lower-inner quadrant of right breast of female, estrogen receptor positive (CMS-HCC); Acquired absence of breast, bilateral; S/P breast reconstruction, bilateral Start: 11-04-2023 End: 11-04-2023 ambulatory MARISELA CUEVAS [facility] Start: 10-30-2023 End: 10-30-2023 Evaluation and management of inpatient HARIS OSBORN [facility] Start: 10-28-2023 End: 10-30-2023 Evaluation and management of inpatient CHRISTY A HE [facility] Start: 10-28-2023 End: 10-29-2023 ambulatory CHRISTY A HE [facility] Start: 10-28-2023 End: 10-30-2023 Evaluation and management of inpatient CHRISTY A HE [facility] Start: 10-27-2023 End: 10-27-2023 ambulatory [facility] Start: 10-23-2023 End: 10-23-2023 Social Work [facility] - Radiation Oncology Start: 10-20-2023 End: 10-20-2023 Social Work [facility] - Radiation On[facility] Start: 10-16-2023 End: 10-16-2023 Social Work [facility] - Radiation Oncology Start: 10-14-2023 End: 10-16-2023 Social Work [facility] - Radiation Oncology Start: 10-01-2023 End: 10-01-2023 ambulatory DO Randy [employer] Work Phone: [facility] Work Phone: Start: 10-01-2023 End: 10-01-2023 Patient encounter procedure DO Randy [employer] Work Phone: [facility] Work Phone: Start: 10-01-2023 Registered Recurring DO Randy Furlong Work Phone: [facility] Acute Work Phone: Start: 09-29-2023 End: 09-29-2023 Social Work [facility] Radiation Oncology Start: 09-28-2023 End: 10-07-2023 Telephone encounter Richie Hanna PLANNING LEAD-APPARATUS ENGINEERING TECHNOLOGIST Work Phone: [facility] Start: 09-14-2023 End: 09-15-2023 Refill Richie Hanna PLANNING LEAD-APPARATUS ENGINEERING TECHNOLOGIST Work Phone: [facility] Start: 08-20-2023 End: 08-27-2023 Social Work [facility] Radiation Oncology Start: 08-20-2023 End: 08-20-2023 Office outpatient new 45 minutes Jhon Gross MD Work Phone: [facility] Comment on above: Malignant neoplasm o f lower-inner quadrant of right breast of female, estrogen receptor positive (CMS-HCC) Start: 08-06-2023 End: 08-06-2023 Social Work [facility] - Radiation Oncology Start: 08-03-2023 End: 08-03-2023 Social Work [facility] - Radiation Oncology Start: 07-30-2023 End: 07-30-2023 Office outpatient visit 40 minutes Christy He MD Work Phone: [facility] Surgical Oncology Comment on above: Malignant neoplasm o f lower-inner quadrant of right breast of female, estrogen receptor positive (CMS-HCC) (Primary Dx) Start: 06-04-2023 End: 06-04-2023 ambulatory Sandrita WILLETT Facility:[facility] Start: 06-04-2023 End: 06-04-2023 Patient encounter procedure Sandrita WILLETT [facility] [place] Start: 05-26-2023 Patient encounter procedure Georgiana Justice DO Work Phone: [facility] Start: 05-26-2023 ambulatory Rusty Horton Facility: [facility] Start: 05-21-2023 Admission to [facility] Yuepeter Tellez PLANNING LEAD-APPARATUS ENGINEERING TECHNOLOGIST Work Phone: [facility] Start: 05-21-2023 ambulatory Yue huggins PLANNING LEAD-APPARATUS ENGINEERING TECHNOLOGIST Work Phone: [facility] Start: 05-14-2023 Telephone encounter Niurka Stockton RN [facility] [place] [facility] Start: 05-12-2023 Telephone encounter Ike Irvin RN [facility] [place] [facility] Start: 05-08-2023 Documentation procedure Niurka dorman RN [facility] [place] [facility] Start: 04-28-2023 End: 04-28-2023 Office outpatient new 60 minutes Christy eH MD Work Phone: [facility] Comment on above: Malignant neoplasm o f lower-inner quadrant of right breast of female, estrogen receptor positive (CMS-HCC) (Primary Dx); Mass of lower inner quadrant of right breast Start: 04-14-2023 End: 04-14-2023 ambulatory [facility] Start: 04-10-2023 End: 04-10-2023 Patient encounter procedure Sandrita WILLETT General Surgery [facility] [place] Start: 04-06-2023 End: 04-06-2023 Patient encounter procedure Chantal Bear [facility] Start: 04-02-2023 End: 04-02-2023 Office outpatient visit 15 minutes Evan Thompson DO Work Phone: [facility] Comment on above: Mammogram abnormal; Invasive ductal carcinoma of breast, right ([facility]/HCC) Start: 03-26-2023 End: 03-26-2023 ambulatory DO Randy Normanlong Work Phone: [facility] Work Phone: Start: 03-26-2023 End: 03-26-2023 Departed Referred DO Randy Furlong Work Phone: [facility] Start: 03-20-2023 End: 03-20-2023 Patient encounter procedure BRITTANI SANTOS [facility] Start: 10-15-2022 Chart Update Randy Cantu ng Work Phone: Located within [facility] 250 DO Work Phone: Start: 10-14-2022 ambulatory BRITTANI SANTOS Facili ty:[id number] Start: 09-29-2022 Patient encounter procedure aRndy Cantung Work Phone: Located within [facility] 250 DO Work Phone: Start: 09-29-2022 ambulatory Ms. Brittani Santos Facility: Start: 09-12-[address] Shanon Tyler II Facility: Start: 09-12-2022 Office outpatient vi sit 5 minutes Randy Cantung Work Phone: Located within [facility] 250 DO Work Phone: Start: 08-22-[address] Shanon Tyler II Facility: Start: 08-22-2022 Office outpatient vi sit 5 minutes Randy Cantung Work Phone: Located within [facility] 250 DO Work Phone: Start: 08-18-2022 Chart Update Randy Cantu ng Work Phone: Located within [facility] 250 DO Work Phone: Start: 08-15-2022 End: 08-15-2022 Patient encounter procedure Shanon Tyler [facility] Start: 07-21-[address] Shanon Tyler II Facility: Start: 07-14-2022 End: 07-14-2022 Patient encounter procedure Reid ValdezStarr Howardey [facility] Start: 12-27-2021 End: 12-27-[address] DAYANA BASHIR Facility:[facility] Start: 12-13-2021 End: 12-14-[address] KAYE MANUEL Facility:[facility] Start: 11-22-2021 End: 11-22-2021 ambulatory Hua Efra [place] Facility:[facility] Start: 11-11-2021 End: 11-11-2021 ambulatory Jesusita Gee Other [facility] [employer] Other Start: 11-11-2021 Office outpatient vi sit 15 minutes Jesusita Gee [facility] Start: 08-26-2021 End: 08-28-2021 ambulatory [facility] Facility:[facility] Start: 08-22-2021 End: 08-22-2021 ambulatory [facility] Facility:[facility] Start: 08-13-2021 End: 08-13-2021 ambulatory [facility] Facility:[facility] Start: 01-21-2021 End: 01-21-2021 ambulatory [facility] Facility:[facility] Start: 01-04-2021 End: 01-05-2021 ambulatory [facility] Facility: [facility] Procedures Date Procedure Procedure Detail Performing Clinician Start: 10-07-2024 Ct guidance stereota ctic localization Josue Mccain DO, PhD Work Phone: Start: 10-07-2024 Unlisted magnetic resonance procedure Josue Mccain DO, PhD Work Phone: Start: 09-07-2024 Ct head/brain w/o contrast material Josue Mccain DO, PhD Work Phone: Start: 09-07-2024 Unlisted magnetic resonance procedure Josue Mccain DO, PhD Work Phone: Start: 08-10-2024 Adult depression screening assessment Dhruv White DO Work Phone: Start: 07-14-2024 Follow-up visit Follow-up RICHIE HANNA Start: 07-14-2024 Adult depression screening assessment [facility] Start: 06-03-2024 Positron emission tomography with computed tomography Randy Calle DO Work Phone: Start: 06-01-2024 Urnls dip stick/tabl et rgnt non-auto w/o micrscp Evan Jay DO Work Phone: Start: 06-01-2024 IGP,APTIMA HPV,AGE GDLN Evan Jay DO Work Phone: Start: 04-28-2024 Follow-up visit Follow-up NAIMA GROSS Start: 04-13-2024 AUDITORY FUNCTION TESTS Nasreen Li [facility] Work Phone: Start: 04-07-2024 ALL CBC WITH AUTO DIFF Evan Jay DO Work Phone: Start: 03-30-2024 Adult depression screening assessment Marisela Cuevas PLANNING LEAD-APPARATUS ENGINEERING TECHNOLOGIST Work Phone: Start: 12-09-2023 Comprehensive metabo lic panel Chris Hollis PA-C Work Phone: Start: 12-08-2023 Potassium serum plasma/whole blood Amy Singh MD Work Phone: Start: 12-08-2023 Assay of magnesium Amy dennison MD Work Phone: Start: 12-08-2023 Comprehensive metabo lic panel Chris Hollis PA-C Work Phone: Start: 12-07-2023 Comprehensive metabo lic panel Chris Valdez Bunny PA-C Work Phone: Start: 12-06-2023 Assay of magnesium Radha Valle PLANNING LEAD-APPARATUS ENGINEERING TECHNOLOGIST Work Phone: Start: 12-06-2023 Urnls dip stick/tabl et rgnt auto w/o microscopy Liliane Valle PLANNING LEAD-APPARATUS ENGINEERING TECHNOLOGIST Work Phone: Start: 12-06-2023 Comprehensive metabo lic panel Chris Hollis PA-C Work Phone: Start: 12-05-2023 Assay of magnesium Radha Valle PLANNING LEAD-APPARATUS ENGINEERING TECHNOLOGIST Work Phone: Start: 12-05-2023 Radiologic exam ches t single view Liliane Valle PLANNING LEAD-APPARATUS ENGINEERING TECHNOLOGIST Work Phone: Start: 12-05-2023 RESP PATHOGENS PANEL/SARS-COV-2 Liliane Valle PLANNING LEAD-APPARATUS ENGINEERING TECHNOLOGIST Work Phone: Start: 12-05-2023 End: 12-05-2023 Culture bacterial blood aerobic w/id isolates Carlene Noguera MD Work Phone: Start: 12-05-2023 Comprehensive metabo lic panel Chris Valdez Bunny DUFFY-C Work Phone: Start: 12-04-2023 Cyanocobalamin vitam in b-12 Elayne Chow MD Work Phone: Start: 12-04-2023 Us retroperitoneal r eal time w/image complete Epifanio Henry MD Work Phone: Start: 12-04-2023 Comprehensive metabo lic panel Chris Valdez Bunny DUFFY-C Work Phone: Start: 12-03-2023 Assay of urine sodium R shena Henry MD Work Phone: Start: 12-03-2023 Urnls dip stick/tabl et rgnt auto w/o microscopy Epifanio Henry MD Work Phone: Start: 12-03-2023 Antinuclear antibodi es justin Epifanio Henry MD Work Phone: Start: 12-03-2023 Creatine kinase total R shena Henry MD Work Phone: Start: 12-03-2023 Assay of magnesium Oliv ia Courtney Valle PLANNING LEAD-APPARATUS ENGINEERING TECHNOLOGIST Work Phone: Start: 12-03-2023 Ecg routine ecg w/le ast 12 lds trcg only w/o i&r Carlene Karolyn Noguera MD Work Phone: Start: 12-03-2023 Comprehensive metabo lic panel Chris DUFFY-C Work Phone: Start: 12-03-2023 DIFFERENTIAL ADD ON USE ONLY Chris DUFFY-C Work Phone: Start: 12-03-2023 Drug screen quantita tive vancomycin Chris DUFFY-C Work Phone: Start: 12-02-2023 End: 12-02-2023 Culture bacterial quanttative colony count urine Kayleigh Adames DO Work Phone: Start: 12-02-2023 Urnls dip stick/tabl et rgnt auto w/o microscopy Kayleigh Adames DO Work Phone: Start: 12-02-2023 End: 12-02-2023 Comprehensive metabolic panel Kayleigh Adames DO Work Phone: Start: 10-16-2023 Mammography Georgiana bangura DO Work Phone: Start: 06-01-2023 Microscopic observat ion [Identifier] in Cervix by Cyto stain Evan Thompson DO Work Phone: Start: 06-01-2023 Cytp cerv/vag auto t hin layer prep mnl screen Evan Thompson DO Work Phone: Start: 01-06-2023 Adult depression screening assessment Niurka Stockton RN Start: 01-31-2022 Lipid 1996 panel - S lianne or Plasma Kesha Apple MD Work Phone: Start: 12-27-2021 Mammography Evan Abby o DO Work Phone: Start: 12-27-2021 Microscopic observat ion [Identifier] in Cervix by Cyto stain Georgiana Justice DO Work Phone: Start: 03-02-2005 Hysterectomy Reid mcfarland Abdominal hysterectomy Mofoster Clarke Biopsy of breast Sandrita RODRIGUEZ William Chondrectomy of semi lunar cartilage of knee Mojonisharad maria esther Core needle biopsy o f breast using ultrasound guidance [facility] Bear Excision of breast Rusty greenlashawn Excisional biopsy of breast Randy Calle Work Phone: Hysterectomy Randy jaramillo Work Phone: Insertion of implant able venous access port Sandrita RODRIGUEZWilliam Lipoma of back (disorder) Edie Howardey Repair of anterior cruciate ligament of knee joint Moursharad Hammi Tonsillectomy Moursharad Watson lssi Transurethral cystoscopy Haydee rhaf Chema NEGATED: Highlighted row has not occurred! Total colonoscopy Randy Calle Work Phone: Plan of Treatment Date Care Activity Detail Author Start: 05-31-2028 Screening for malignant neoplasm of cervix [facility] Start: 09-02-2027 Diabetes Screening Diabetes Screening [facility] Start: 07-08-2027 DTaP,Tdap and Td Vaccines (2 - Td or Tdap) DTaP,Tdap and Td Vaccines (2 - Td or Tdap) [facility] Start: 07-08-2027 Urine microalbumin profile DTaP,Tdap,Td Vaccine (2 - Td or Tdap) [facility] Start: 06-16-2027 Diabetes Screening Diabetes Screening [facility] Start: 01-31-2027 Lipid panel Lipid Screening [facility] Start: 12-27-2026 Screening for malignant neoplasm of cervix [facility] Start: 10-05-2025 Tobacco Screening Tobacco Screening [facility] Start: 09-22-2025 Adult BMI Screening Adult BMI Screening [facility] Start: 09-09-2025 Tobacco Screening Tobacco Screening [facility] Start: 08-29-2025 Tobacco Screening Tobacco Screening [facility] Start: 08-18-2025 Tobacco Screening Tobacco Screening [facility] Start: 08-12-2025 Adult BMI Screening Adult BMI Screening [facility] Start: 08-12-2025 Tobacco Screening Tobacco Screening [facility] Start: 08-10-2025 Adult BMI Screening Adult BMI Screening [facility] Start: 08-10-2025 Depression Screening [facility] Start: 08-08-2025 Tobacco Screening Tobacco Screening [facility] Start: 08-03-2025 Adult BMI Screening Adult BMI Screening [facility] Start: 08-03-2025 Tobacco Screening Tobacco Screening [facility] Start: 07-15-2025 Adult BMI Screening Adult BMI Screening [facility] Start: 07-15-2025 Tobacco Screening Tobacco Screening [facility] Start: 07-14-2025 Adult BMI Screening Adult BMI Screening [facility] Start: 07-14-2025 Depression Screening [facility]ening [facility] Start: 07-14-2025 Tobacco Screening Tobacco Screening [facility] Start: 07-11-2025 Adult BMI Screening Adult BMI Screening [facility] Start: 07-06-2025 Adult BMI Screening Adult BMI Screening [facility] Start: 07-06-2025 Tobacco Screening Tobacco Screening [facility] Start: 06-29-2025 Adult BMI Screening Adult BMI Screening [facility] Start: 06-29-2025 Tobacco Screening Tobacco Screening [facility] Start: 06-22-2025 Adult BMI Screening Adult BMI Screening [facility] Start: 06-22-2025 Tobacco Screening Tobacco Screening [facility] Start: 06-13-2025 Adult BMI Screening Adult BMI Screening [facility] Start: 06-13-2025 Tobacco Screening Tobacco Screening [facility] Start: 06-12-2025 End: 06-12-2025 Patient encounter procedure 06/12/2025 10:00 AM EDT Office Visit [facility] [address] [place] [id number] Evan Thompson, DO [address] [place] [address] [facility] Start: 06-08-2025 Tobacco Screening Tobacco Screening [facility] Start: 06-01-2025 Tobacco Screening Tobacco Screening [facility] Start: 05-18-2025 Adult BMI Screening Adult BMI Screening [facility] Start: 05-18-2025 Tobacco Screening Tobacco Screening [facility] Start: 05-05-2025 Adult BMI Screening Adult BMI Screening [facility] Start: 05-04-2025 Tobacco Screening Tobacco Screening [facility] Start: 04-20-2025 Adult BMI Screening Adult BMI Screening [facility] Start: 04-20-2025 Tobacco Screening Tobacco Screening [facility] Start: 04-13-2025 Adult BMI Screening Adult BMI Screening [facility] Start: 04-13-2025 Tobacco Screening Tobacco Screening [facility] Start: 03-30-2025 Adult BMI Screening Adult BMI Screening [facility] Start: 03-30-2025 Depression Screening [facility]ening [facility] Start: 03-21-2025 Tobacco Screening [...] Screening [facility] Start: 12-01-2024 End: 12-01-2024 Follow-up encounter 12/01/2024 2:00 PM EDT [facility] Brain Tumor [place] [address] [place] [address] Josue Mccain DO, PhD [address] [facility] [address] [place] [address] Established patient Visit with Dr. Mccain for MRI review and follow up [facility] Comment on above: Established patient Visit with Dr. Timothy kemp for MRI review and follow up Start: 12-01-2024 Tobacco Screening Tobacco Screening [facility] Start: 11-29-2024 End: 11-29-2024 Patient encounter procedure 11/29/2024 10:20 AM EDT Appointment [facility] [place] [address] [place], [place] [id number] With Perfusion [facility] Radiology MRI Comment on above: With Perfusion Start: 11-27-2024 Adult BMI Screening Adult BMI Screening [facility] Start: 11-26-2024 Tobacco Screening Tobacco Screening [facility] Start: 11-15-2024 End: 11-15-2024 Patient encounter procedure Radiology MRI Comment on above: MRI With Perfusion New patient Visit [facility] for MRI review and follow up Start: 10-31-2024 Influenza vaccination [facility] Start: 10-27-2024 Adult BMI Screening Adult [facility] Screening [facility] Start: 10-27-2024 Tobacco Screening Tobacco Screening [facility] Start: 10-26-2024 End: 10-26-2024 Telephone encounter 10/26/2024 8:30 AM EDT Telephone Visit [facility] Gynecology Oncology, A Department of [place] [address] [facility] [place] [phone] [place] [address] [place] [address], [address] [place] [address] [facility] Gynecology Oncology, A Department of [facility] Start: 10-15-2024 Adult BMI Screening Adult BMI Screening [facility] Start: 10-15-2024 Screening for malignant neoplasm of breast [facility] Start: 10-15-2024 Tobacco Screening Tobacco Screening [facility] Start: 10-12-2024 End: 10-12-2024 Admission to same day surgery center 10/12/2024 5:00 PM EDT - 10/12/2024 6:15 PM EDT Surgery [facility] - Surgery [address] [place] [phone] Jhon Gross MD [address] [facility] [place] [address] DEBRIDEMENT BREAST [facility] - Surgery Comment on above: DEBRIDEMENT BREAST Start: 10-12-2024 End: 10-12-2024 DEBRIDEMENT BREAST DEBRIDEMENT BREAST BREAST WOUND LEFT 10/12/2024 5:00 PM EDT [facility] Start: 10-12-2024 Subsequent hospital visit by physician 10/12/2024 5:00 PM EDT Hospital Encounter [facility] - Surgery [address] [place] [phone] Jhon Gross MD [address] [place] [address] [facility] - Surgery Start: 2024 End: 2024 Admission to establishment 2024 2:15 PM EDT Support [facility] On [address] [address] [facility] Pre-Admission Clinic On [facility] Start: 10-05-2024 End: 10-05-2024 Patient encounter procedure 10/05/2024 1:30 PM EDT Office Visit [facility] [address] [facility] [address] [place] [address] Marisela Cuevas APRN-APPARATUS ENGINEERING TECHNOLOGIST [address] [place] [address] [facility] Start: 09-22-2024 End: 09-22-2024 Patient encounter procedure 09/22/2024 3:15 PM EDT Office Visit [facility] [address] [place] [address] Jhon Gross MD [address] [place] [address] [facility] Start: 09-16-2024 End: 09-16-2024 Patient encounter procedure 09/16/2024 11:20 AM EDT Office Visit Plastic Surgery [address] [address] Geno Pierce PLANNING LEAD.APPARATUS ENGINEERING TECHNOLOGIST [address] [place] [address] POST OP Plastic Surgery Comment on above: POST OP Start: 09-16-2024 End: 09-16-2024 ambulatory 09/16/2024 7:30 AM EDT Visit (SP) Office Hematology/Oncology [address] [place] [address] Alessandra Syed APRN.APPARATUS ENGINEERING TECHNOLOGIST [address] [place] [address] HOSP DC Hematology/Oncology Comment on above: HOSP DC Start: 09-08-2024 End: 09-08-2024 Patient encounter procedure 09/08/2024 9:45 AM EDT Office Visit [facility] [address] [place] [address] Shereen Smallwood PANicolasC [address] [place] [address] [facility] Start: 09-07-2024 End: 09-07-2024 Admission to same day surgery center 09/07/2024 4:30 PM EDT - 09/07/2024 6:00 PM EDT Surgery Anesthesia [address] [address] Josue Mccain DO, PhD [address] [facility] [address] [place] [address] STEREOTACTIC RADIOSURGERY 1 COMPLEX CRANIAL LESION Anesthesia Comment on above: STEREOTACTIC RADIOSURGERY 1 COMPLEX CRAN IAL LESION Start: 09-07-2024 End: 09-07-2024 Radiation delivery stereotactic cranial cobalt RADIATION TX STEREOTACTIC RADIOSURGERY (SRS) TX CRANIAL LESION(S) 1 SESSION MULTI-SOURCE COBALT Secondary malignant neoplasm of brain (HCC) 09/07/2024 4:30 PM EDT [facility] ANESTHESIA ONLY Start: 09-07-2024 End: 09-07-2024 Stereotactic radiosurgery 1 complex cranial les STEREOTACTIC RADIOSURGERY 1 COMPLEX CRANIAL LESION Secondary malignant neoplasm of brain (HCC) 09/07/2024 4:30 PM EDT [facility] ANESTHESIA ONLY Start: 09-07-2024 Subsequent hospital visit by physician 09/07/2024 4:30 PM EDT Hospital Encounter Anesthesia [address] [address] Josue Mccain DO, PhD [address] [place] [address] 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] Anesthesia Comment on above: Secondary malignant neoplasm of brain (H CC) [C79.31] Start: 09-07-2024 Subsequent hospital visit by physician 09/07/2024 8:20 AM EDT Hospital Encounter Radiology [address] [place] [address] 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] Radiology Comment on above: Secondary malignant neoplasm of brain (H CC) [C79.31] Start: 09-07-2024 End: 09-07-2024 Patient encounter procedure Radiation Oncology Comment on above: GS/ESM SIM MRI CT dotd-esm out GS/ESM SIM@ MRI@ CT mask Cpt 68002 GS/ESM dotd-esm out Start: 09-03-2024 Adult BMI Screening Adult BMI Screening [facility] Start: 08-29-2024 End: 08-29-2024 Patient encounter procedure 08/29/2024 9:30 AM EDT Office Visit [facility] [address] [facility] [place] [address] Shereen Smallwood PA-C [address], [address] [place] [address] [facility] Start: 08-19-2024 Adult BMI Screening Adult BMI Screening [facility] Start: 08-19-2024 Tobacco Screening Tobacco Screening [facility] Start: 08-19-2024 End: 08-19-2024 Patient encounter procedure 08/19/2024 10:00 AM EDT Office Visit [facility] [address] [place] [address] Shereen Smallwood PAHeena [address], [address] [place] [address] [facility] Plastic and Reconstructive Surgery Start: 08-12-2024 End: 08-12-2024 Admission to same day surgery center 08/12/2024 8:00 AM EDT - 08/12/2024 9:30 AM EDT Surgery [facility] Surgery [address] [place] [address] Jhon Gross MD [address], [address] [place] [address] DEBRIDEMENT BREAST- AXILLA [facility] Comment on above: DEBRIDEMENT BREAST- AXILLA Start: 08-12-2024 End: 08-12-2024 Anesthesia consultation 08/12/2024 8:00 AM EDT Anesthesia Event [facility] Surgery [address] [place] [address] Rusty Gipson SRNA [facility] Surgery Start: 08-12-2024 End: 08-12-2024 DEBRIDEMENT BREAST DEBRIDEMENT BREAST LEFT AXILLA WOUND 08/12/2024 8:00 AM EDT [facility] Start: 08-12-2024 Subsequent hospital visit by physician 08/12/2024 8:00 AM EDT Hospital Encounter [facility] Surgery [address] [place] [address] Jhon Gross MD [address] [place] [address] [facility] Surgery Start: 08-10-2024 End: 08-10-2024 Patient encounter procedure 08/10/2024 3:30 PM EDT Office Visit [facility] Internal Medicine - Family Medicine [address] [place] [address] Dhruv White, DO [address] [facility] [place] [address] [facility] - Family Medicine Start: 08-10-2024 End: 08-10-2024 Admission to establishment 08/10/2024 10:00 AM EDT Support Visit [facility] On [address] [address] [facility] Start: 08-08-2024 End: 08-08-2024 Patient encounter procedure 08/08/2024 9:00 AM EDT Office Visit [facility] [address] [place] [address] Shereen Smallwood, PANicolasC [address] [place] [address] [facility] Start: 07-29-2024 Adult BMI Screening Adult BMI Screening [facility] Start: 07-29-2024 Tobacco Screening Tobacco Screening [facility] Start: 07-27-2024 End: 07-27-2024 Admission to same day surgery center 07/27/2024 2:45 PM EDT - 07/27/2024 4:15 PM EDT Surgery [facility] - Surgery [address] [place] [address] Jhon Gross MD [address], [address] [place] [address] DEBRIDEMENT BREAST [facility] - Surgery Comment on above: DEBRIDEMENT BREAST Start: 07-27-2024 End: 07-27-2024 DEBRIDEMENT BREAST [facility] Start: 07-27-2024 Subsequent hospital visit by physician 07/27/2024 2:45 PM EDT Hospital Encounter [facility] Surgery [address] [place] [address] Jhon Gross MD [address], [address] [facility] [place] [address] [facility] Surgery Start: 07-27-2024 End: 07-27-2024 Telephone encounter 07/27/2024 8:30 AM EDT Telephone Visit [facility] Gynecology Oncology, A Department of [facility] [address] [facility] [address] [facility] [place] [address] [place] [address] [place] [address], [address] [place] [address] [facility] Gynecology Oncology, A Department of [facility] Start: 07-21-2024 End: 07-21-2024 Admission to same day surgery center 07/21/2024 12:30 PM EDT - 07/21/2024 2:00 PM EDT Surgery [facility] Surgery [address] [place] [address] Jhon Gross MD [address], [address] [facility] [place] [place] [address] DEBRIDEMENT BREAST [facility] Surgery Comment on above: DEBRIDEMENT BREAST Start: 07-21-2024 End: 07-21-2024 DEBRIDEMENT BREAST DEBRIDEMENT BREAST LEFT BREAST WOUND 07/21/2024 12:30 PM EDT [facility] Start: 07-21-2024 Subsequent hospital visit by physician 07/21/2024 12:30 PM EDT Hospital Encounter [facility] - Surgery [address] [place] [address] Jhon Gross MD [address] [place] [address] [facility] - Surgery Start: 07-20-2024 End: 07-20-2024 Patient encounter procedure 07/20/2024 10:30 AM EDT Office Visit [facility] [address] [facility] [address] [facility] [place] [address] Marisela Cuevas, PLANNING LEAD-APPARATUS ENGINEERING TECHNOLOGIST [address], [facility] [address] [facility] [place] [address] [facility] Start: 07-19-2024 End: 07-19-2024 Admission to same day surgery center 07/19/2024 4:15 PM EDT - 07/19/2024 5:45 PM EDT Surgery [facility] [address] [place] [address] Jhno Gross MD [address], [facility] [address] [facility] [place] [address] DEBRIDEMENT BREAST [facility] Surgery Comment on above: DEBRIDEMENT BREAST Start: 07-19-2024 End: 07-19-2024 DEBRIDEMENT BREAST DEBRIDEMENT BREAST LEFT BREAST WOUND 07/19/2024 4:15 PM EDT [facility] Start: 07-19-2024 Subsequent hospital visit by physician 07/19/2024 4:15 PM EDT Hospital Encounter [facility] Surgery [address] [place] [address] Jhon Gross MD [address], [facility] [address] [facility] [place] [address] [facility] - Surgery Start: 07-19-2024 End: 07-19-2024 Patient encounter procedure 07/19/2024 8:00 AM EDT Office Visit Infectious Disease [address] [place] [address] Krystin Barragan MD [address] [place] [address] 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 Start: 07-15-2024 End: 07-15-2024 Admission to establishment 07/15/2024 9:00 AM EDT Support Visit [facility] Pre-Admission Clinic On [address] [address] [facility] On [facility] Start: 07-14-2024 End: 07-14-2024 Patient encounter procedure 07/14/2024 8:40 AM EDT Office Visit [facility] Internal Medicine - Family Medicine [address] [place] [address] Richie Hanna, PLANNING LEAD-APPARATUS ENGINEERING TECHNOLOGIST [address] [place] [address] [facility] - [facility] Start: 07-12-2024 End: 07-12-2024 ambulatory 07/12/2024 2:00 PM EDT Visit (SP) Office Hematology/Oncology [address] [place] [address] [place] [address] [place] [address] breast ca Hematology/Oncology Comment on above: breast ca Start: 07-11-2024 End: 07-11-2024 Patient encounter procedure [facility] [place] Start: 07-06-2024 End: 07-06-2024 Patient encounter procedure [facility] [place] Start: 06-29-2024 End: 06-29-2024 Patient encounter procedure 06/29/2024 2:00 PM EDT Office Visit [facility] [address] [facility] [address] [facility] [place] [place] [address] Marisela Cuevas, PLANNING LEAD-APPARATUS ENGINEERING TECHNOLOGIST [address], [address] [facility] [place] [address] [facility] Start: 06-29-2024 End: 06-29-2024 Telemedicine consultation with patient 06/29/2024 8:30 AM EDT Telemedicine [facility] Gynecology Oncology, A Department of [facility] [address] [facility] [address] [place] [address] [place] [address] [place] [address], [address] [place] [address] [facility] Gynecology Oncology, A Department of [facility] Start: 06-14-2024 End: 06-14-2024 Patient encounter procedure 06/14/2024 1:30 PM EDT Office Visit [facility] [address] [facility] [address] [facility] [place] [address] Marisela Cuevas, PLANNING LEAD-APPARATUS ENGINEERING TECHNOLOGIST [address], [address] [facility] [place] [address] [facility] Re[facility]ive Surgery Start: 06-13-2024 End: 06-13-2024 INCISION DRAINAGE CHEST INCISION DRAINAGE CHEST L Chest wall wound 06/13/2024 5:19 PM EDT [facility] Start: 06-08-2024 End: 06-08-2024 Patient encounter procedure Rochelle Hernandez [facility] - Medical Oncology Start: 06-08-2024 End: 06-08-2024 Telephone encounter 06/08/2024 8:30 AM EDT Telephone Visit [facility] Gynecology Oncology, A Department of [address] [place] [address] Raymond Sepulveda MD [address] [place] [address], [address] [facility] [place] [address] [facility] Gynecology Oncology, A Department of [facility] Start: 06-06-2024 Screening for malignant neoplasm of colon [facility] Start: 06-01-2024 End: 06-01-2025 DXA Skeletal system Views for bone density DEXA bone density Imaging Routine Postmenopausal state Expected: 06/01/2024 (Approximate), Expires: 06/01/2025 [facility] Work Phone: Comment on above: Expected: 06/01/2024 (Approximate), Expi res: 06/01/2025 Start: 06-01-2024 End: 06-01-2024 Patient encounter procedure [facility] Start: 05-26-2024 End: 05-26-2024 Admission to same day surgery center 05/26/2024 10:15 AM EDT - 05/26/2024 12:45 PM EDT Surgery [facility] Surgery [address] [place] [phone] Raymond Sepulveda MD [address] [place] [address], [address] [place] [address] DAVINCI EXCISION LYMPH NODE ABDOMINAL REGION(EXCISION PELVIC MASS) [80237 (CPT )] [facility] Surgery Comment on above: DAVINCI EXCISION LYMPH NODE ABDOMINAL RE GION(EXCISION PELVIC MASS) [26180 (CPT )] Start: 05-26-2024 Subsequent hospital visit by physician 05/26/2024 10:15 AM EDT Hospital Encounter [address] [phone] [place] [address] [place] [address], [address] [place] [address] [facility] - Surgery Start: 05-26-2024 End: 05-26-2024 Unlisted laparoscopic px abd pertoneum & omentum DAVINCI EXCISION LYMPH NODE ABDOMINAL REGION PELVIC MASS LEFT SIDED 05/26/2024 10:15 AM EDT [facility] Start: 05-12-2024 End: 05-12-2024 Admission to establishment 05/12/2024 2:45 PM EDT [facility] [address] [address] [facility] On [facility] Start: 05-12-2024 End: 05-12-2024 Evaluation and management of inpatient 05/12/2024 2:45 PM EDT Support Visit [facility] On [address] [address] [facility] On [facility] Start: 05-05-2024 Adult BMI Screening Adult BMI Screening [facility] Start: 05-02-2024 End: 05-02-2024 Rmvl henry ctr vad w/subq port/dot net architect ctr/prph insj [facility] Start: 04-28-2024 End: 04-28-2024 Patient encounter procedure 04/28/2024 3:15 PM EST Office Visit [facility] [address] [facility] [address] [place] [address] Jhon Gross MD [address], [address] [place] [address] [facility] Start: 04-28-2024 Tobacco Screening Tobacco Screening [facility] Start: 04-21-2024 End: 04-21-2024 Patient encounter procedure 04/21/2024 11:30 AM EST Office Visit [facility] [address] [place] [phone] Jay, Evan, DO [address] [place] [address] [facility] Start: 04-20-2024 End: 04-20-2024 Patient encounter procedure 04/20/2024 1:00 PM EST Office Visit [facility] [address] [facility] 280 [facility] [place] [place] [address] Marisela Cuevas, PLANNING LEAD-APPARATUS ENGINEERING TECHNOLOGIST [address], [address] [facility] [place] [place] [address] [facility] Start: 04-15-2024 End: 04-15-2024 Patient encounter procedure 04/15/2024 11:30 AM EST Office Visit [facility] [address] [facility] [address] [place] [address] Marisela Cuevas, PLANNING LEAD-APPARATUS ENGINEERING TECHNOLOGIST [address], [address] [facility] [place] [address] [facility] Start: 03-21-2024 End: 03-21-2024 Admission to same day surgery center 03/21/2024 3:30 PM EST - 03/21/2024 5:15 PM EST Surgery [facility] - Surgery [address] [place] [address] Jhon Gross MD [address], [address] [facility] [place] [address] EXCISION SOFT TISSUE BREAST - EXC REDUNDANT CHEST WALL TISSUE [54988 (CPT )] [facility] - Surgery Comment on above: EXCISION SOFT TISSUE BREAST - EXC REDUND ANT CHEST WALL TISSUE [24564 (CPT )] Start: 03-21-2024 End: 03-21-2024 Excision excessive skin & subq tissue other area EXCISION SOFT TISSUE BREAST LT CHEST WOUND 03/21/2024 3:30 PM EST [facility] Start: 03-21-2024 End: 03-21-2024 Removal tiss putty mixer w/o insertion prosthesis REMOVAL CARD MOUNTER TISSUE BREAST LT CHEST WOUND 03/21/2024 3:30 PM EST [facility] Start: 03-21-2024 Subsequent hospital visit by physician 03/21/2024 3:30 PM EST Hospital Encounter [facility] Surgery [address] [place] [address] Jhon Gross MD [address], [address] [place] [address] [facility] Surgery Start: 03-15-2024 End: 03-15-2024 Patient encounter procedure [facility] Start: 03-04-2024 End: 03-04-2024 Patient encounter procedure 03/04/2024 10:30 AM EST Office Visit [facility] [address] [place] [address] Shereen Smallwood PA-C [address], [address] [place] [address] [facility] Start: 03-03-2024 End: 03-03-2024 Patient encounter procedure 03/03/2024 12:30 PM EST Office Visit [facility] [address] [place] [address] Jhon Gross MD [address], [address] [place] [address] [facility] Start: 02-26-2024 End: 02-26-2024 Admission to same day surgery center 02/26/2024 11:30 AM EST - 02/26/2024 1:00 PM EST Surgery [facility] [address] [place] [address] Jhon Gross MD [address], [facility] [address] [facility] [place] [address] INCISION DRAINAGE BREAST (WASHOUT) [facility] Comment on above: INCISION DRAINAGE BREAST (WASHOUT) Start: 02-26-2024 End: 02-26-2024 CLOSURE WOUND MIDSECTION CLOSURE WOUND MIDSECTION LEFT BREAST WOUND 02/26/2024 11:30 AM EST [facility] Start: 02-26-2024 End: 02-26-2024 INCISION DRAINAGE BREAST INCISION DRAINAGE BREAST LEFT BREAST WOUND 02/26/2024 11:30 AM EST [facility] Start: 02-26-2024 Subsequent hospital visit by physician 02/26/2024 11:30 AM EST Hospital Encounter [facility] [address] [place] [address] Jhon Gross MD [address], [facility] [address] [facility] [place] [address] [facility] Start: 02-15-2024 End: 02-15-2024 Patient encounter procedure [facility] Comment on above: Arrived Start: 01-25-2024 End: 01-25-2024 Patient encounter procedure 01/25/2024 10:00 AM EST Office Visit [facility] [address] [phone] Yves Coffey MD [address] [facility] [address] [place] [address] Arrived [facility] Comment on above: Arrived Start: 12-21-2023 End: 12-21-2023 Patient encounter procedure 12/21/2023 1:30 PM EDT Office Visit [facility] [address] [place] [address] Marisela Cuevas, PLANNING LEADAPPARATUS ENGINEERING TECHNOLOGIST [address], [address] [place] [address] [facility] Start: 12-15-2023 End: 12-15-2023 Patient encounter procedure 12/15/2023 10:30 AM EDT Office Visit [facility] [address] [place] [address] Marisela Cuevas, PLANNING LEADAPPARATUS ENGINEERING TECHNOLOGIST [address], [address] [place] [address] [facility] Start: 12-14-2023 End: 12-14-2023 Patient encounter procedure 12/14/2023 2:00 PM EDT Office Visit [facility] [address] [place] [address] Suzette Mason PA [address], [address] [place] [address] [facility] Start: 12-08-2023 End: 12-08-2023 Patient encounter procedure [facility] Start: 12-04-2023 End: 12-04-2023 Patient encounter procedure 12/04/2023 11:00 AM EDT Office Visit [facility] [address] [place] [address] Marisela Cuevas, PLANNING LEAD-APPARATUS ENGINEERING TECHNOLOGIST [address], [address] [place] [address] [facility] Start: 12-01-2023 Patient referral [facility] Work Phone: Start: 11-26-2023 End: 11-26-2023 Patient encounter procedure 11/26/2023 11:45 AM EDT Office Visit [facility] [address] [place] [address] Jhon Gross MD [address], [address] [place] [address] [facility] Start: 11-25-2023 End: 11-25-2023 Patient encounter procedure 11/25/2023 3:00 PM EDT Office Visit [facility] [address] [place] [address] Marislea Cuevas, PLANNING LEAD-APPARATUS ENGINEERING TECHNOLOGIST [address], [address] [place] [address] [facility] Start: 11-18-2023 End: 11-18-2023 Patient encounter procedure 11/18/2023 11:30 AM EDT Office Visit [facility] [address] [place] [address] Marisela Cuevas, PLANNING LEAD-APPARATUS ENGINEERING TECHNOLOGIST [address], [address] [place] [address] [facility] Start: 11-11-2023 End: 11-11-2023 Patient encounter procedure 11/11/2023 1:30 PM EDT Office Visit [facility] [address] [place] [address] Marisela Cuevas, PLANNING LEAD-APPARATUS ENGINEERING TECHNOLOGIST [address], [address] [place] [address] [facility] Start: 11-04-2023 End: 11-04-2023 Patient encounter procedure 11/04/2023 11:00 AM EDT Office Visit [facility] [address] [facility] [address] [place] [address] Marisela Cuevas, PLANNING LEAD-APPARATUS ENGINEERING TECHNOLOGIST [address], [facility] [address] [place] [address] [facility] Start: 11-01-2023 Covid-19 Vaccine ( season) Covid-19 Vaccine ( season) [facility] Start: 11-01-2023 Covid-19 Vaccine ( season) Covid-19 Vaccine ( season) [facility] Start: 11-01-2023 COVID-19 Vaccine ( season) COVID-19 Vaccine ( season) [facility] Start: 11-01-2023 COVID-19 Vaccine ( season) COVID-19 Vaccine ( season) [facility] Start: 11-01-2023 Influenza vaccination [facility] Start: 10-28-2023 End: 10-28-2023 Adjnt tis trnsfr/reargmt any area 30.1-60 sq cm [facility] Start: 10-28-2023 End: 10-28-2023 Admission to same day surgery center 10/28/2023 7:30 AM EDT - 10/28/2023 11:30 AM EDT Surgery [facility] a Division of [facility] Surgery [address] [place] [address] Christy He MD [address] [facility] [address] [facility] [place] [address] MASTECTOMY BREAST SIMPLE SKIN SPARING [facility] a Division of [facility] - Surgery Comment on above: MASTECTOMY BREAST SIMPLE SKIN SPARING Start: 10-28-2023 End: 10-28-2023 Brst rcnstj immt/dlyd w/tiss putty mixer sbsq xpnsj EXCHANGE CARD MOUNTER TISSUE BREAST INVASIVE CARCINOMA RIGHT DESIRE FOR CONTRALATERAL RISK REDUCTION 10/28/2023 7:30 AM EDT [facility] Start: 10-28-2023 End: 10-28-2023 EXCISION LYMPH NODE AXILLARY EXCISION LYMPH NODE AXILLARY INVASIVE CARCINOMA RIGHT DESIRE FOR CONTRALATERAL RISK REDUCTION 10/28/2023 7:30 AM EDT [facility] Start: 10-28-2023 End: 10-28-2023 MAGNETIC SEED LOCALIZATION EXCISION/BIOPSY MASS BREAST MAGNETIC SEED LOCALIZATION EXCISION/BIOPSY MASS BREAST INVASIVE CARCINOMA RIGHT DESIRE FOR CONTRALATERAL RISK REDUCTION 10/28/2023 7:30 AM EDT [facility] Start: 10-28-2023 End: 10-28-2023 MASTECTOMY BREAST SIMPLE MASTECTOMY BREAST SIMPLE INVASIVE CARCINOMA RIGHT DESIRE FOR CONTRALATERAL RISK REDUCTION 10/28/2023 7:30 AM EDT [facility] Start: 10-28-2023 End: 10-28-2023 Mastectomy simple complete MASTECTOMY BREAST SIMPLE RISK REDUCING INVASIVE CARCINOMA RIGHT DESIRE FOR CONTRALATERAL RISK REDUCTION 10/28/2023 7:30 AM EDT [facility] Start: 10-28-2023 Subsequent hospital visit by physician 10/28/2023 7:30 AM EDT Hospital Encounter [facility] [place] [phone] Christy He MD [address] [place] [phone] [facility] - Surgery Start: 10-16-2023 Subsequent hospital visit by physician 10/16/2023 2:00 PM EDT Hospital Encounter [facility] Bejarano [place] [facility] Ul[facility]ound [address] [place] [address] [facility]ushboo Bejarano [place] [facility] Start: 10-16-2023 End: 10-16-2023 Patient encounter procedure 10/16/2023 11:00 AM EDT Procedure visit [facility] On [address] [place] [address] [facility]ush[facility] Platason[facility] On [facility] Start: 09-04-2023 Subsequent hospital visit by physician 09/04/2023 12:45 PM EDT Hospital Encounter Khushboo Donosh [place] - MRI [address] [place] [phone] Khushboo Enriquezntosh [place] - [facility] Start: 08-30-2023 End: 07-29-2024 MR Breast - bilateral WO and W contrast IV MR bilateral breast with and without contrast with CAD Imaging Routine Malignant neoplasm of lower-inner quadrant of right breast of female, estrogen receptor positive ([facility]) Expected: 08/30/2023 (Approximate), Expires: 07/29/2024 Khushboo Work Phone: Comment on above: Expected: 08/30/2023 (Approximate), Expi res: 07/29/2024 Start: 08-20-2023 End: 08-20-2023 Patient encounter procedure 08/20/2023 10:00 AM EDT Office Visit [facility] [address] [place] [address] [address] [place] [phone] Jhon Gross MD [address] [facility] [address] [place] [address] [facility] Start: 07-30-2023 End: 07-30-2023 Patient encounter procedure 07/30/2023 3:00 PM EDT Office Visit [facility] [address] [place], [place] [address] [address] [place] [address] Christy He MD [address] [facility], [facility] [address] [place] [phone] [facility] Start: 06-01-2023 End: 06-01-2023 Patient encounter procedure 06/01/2023 1:30 PM EDT Office Visit [facility] [address] [facility] [address] [place] [address] Evan Thompson, DO [address] [facility] [place] [address] [facility] Start: 04-08-2023 FUV, Provider: Shanon Tyler, Status: Pen, Time: 2:50 PM FUV, Provider: Shanon Tyler, Status: Pen, Time: 2:50 PM -[facility] 250 DO Work Phone: Start: 03-07-2023 Depression Screening Depression Screening [facility] Start: 12-27-2022 Screening for malignant neoplasm of breast Mammogram [facility] Start: 10-31-2022 COVID-19 Vaccine ( season) COVID-19 Vaccine ( season) [facility] Start: 10-31-2022 Influenza vaccination [facility] Start: 09-29-2022 FUV, Provider: Brittani Avalos, Status: Pen, Time: 2:30 PM FUV, Provider: Brittani Avalos, Status: Pen, Time: 2:30 PM Located within [facility] 250 DO Work Phone: Start: 09-18-2022 FUV, Provider: Shanon Tyler, Status: Pen, Time: 9:10 AM FUV, Provider: Shanon Tyler, Status: Pen, Time: 9:10 AM Located within [facility] 250 DO Work Phone: Start: 09-12-2022 WILMAN, Provider: ASHLEIGH MURGUIA CHIEF LEGAL OFFICER 1,[id number], Status: Pen, Time: 9:00 AM WILMAN, Provider: ASHLEIGH MURGUIA CHIEF LEGAL OFFICER 1,[id number], Status: Pen, Time: 9:00 AM Located within [facility] 250 DO Work Phone: Start: 08-22-2022 WILMAN, Provider: ASHLEIGH GUERRERO03 CHIEF LEGAL OFFICER 1,[id number], Status: Pen, Time: 9:00 AM WILMAN, Provider: ASHLEIGH GUERRERO03 CHIEF LEGAL OFFICER 1,[id number], Status: Pen, Time: 9:00 AM Located within [facility] 250 DO Work Phone: Start: 01-03-2021 Covid-19 Vaccine (3 - Mixed Product risk series) Covid-19 Vaccine (3 - Mixed Product risk series) [facility] Start: 2020 Pneumococcal Vaccine: 50+ (1 of 1 - PCV) Pneumococcal Vaccine: 50+ (1 of 1 - PCV) [facility] Start: 2020 Shingrix Vaccine (1 of 2) Shingrix Vaccine (1 of 2) [facility] Start: 10-11-2015 Screening for malignant neoplasm of colon [facility] Start: 2000 Screening for malignant neoplasm of cervix [facility] Start: 10-11-1991 Screening for malignant neoplasm of cervix [facility] Start: 1989 Administration of varicella zoster vaccine Zoster (Shingles) Vaccine (1 of 2) [facility] Start: 1989 Hepatitis B Vaccine (1 of 3 - 19+ 3-dose series) Hepatitis B Vaccine (1 of 3 - 19+ 3-dose series) [facility] Start: 1989 Pneumococcal Vaccine: 50+ (1 of 2 - PCV) Pneumococcal Vaccine: 50+ (1 of 2 - PCV) [facility] Start: 1989 Shingrix Vaccine (1 of 2) Shingrix Vaccine (1 of 2) [facility] Start: 1988 Adult BMI Follow Up Plan Adult BMI Follow Up Plan [facility] Start: 1988 Annual PCP Team Chronic Disease Visit Annual PCP Team Chronic Disease Visit [facility] Start: 1988 Anxiety Screening Anxiety Screening [facility] Start: 1988 Depression Screening Depression Screening [facility] Start: 1988 Hepatitis C screening Hepatitis C Screening [facility] Start: 1988 HIV screening HIV Screening [facility] Start: 1981 Screening for malignant neoplasm of cervix Cervical Cancer Screening [facility] Start: 1970 Screening for malignant neoplasm of colon [facility] [employer] End: 11-24-2024 Aspirate culture includes gram stain Aspirate culture includes gram stain Microbiology Routine Encounter for postoperative care Acquired absence of breast, bilateral 1 Occurrences starting 11/25/2023 until 11/24/2024 [email or web address] Work Phone: Comment on above: 1 Occurrences starting 11/25/2023 until 11/24/2024 Bacteria identified in Aspirate by Aerobe culture Aspirate culture includes gram stain Microbiology Routine Encounter for postoperative care Acquired absence of breast, bilateral 11/25/2023 6:05 PM EDT [employer] Bacteria identified in Blood by Aerobe culture [email or web address] Work Phone: End: 12-08-2024 CBC W Auto Differential panel - Blood CBC auto differential Lab Routine Infection of deep incisional surgical site after procedure, initial encounter Infection of deep incisional surgical site after procedure, subsequent encounter weekly for 4 Occurrences starting 12/09/2023 until 12/08/2024 [email or web address] Work Phone: Comment on above: weekly for 4 Occurrences starting 2023 until 12/08/2024 End: 12-08-2024 Comprehensive metabolic 2000 panel - Serum or Plasma Comprehensive metabolic panel Lab Routine Infection of deep incisional surgical site after procedure, initial encounter Infection of deep incisional surgical site after procedure, subsequent encounter weekly for 4 Occurrences starting 12/09/2023 until 12/08/2024 [facility] Comment on above: weekly for 4 Occurrences starting 2023 until 12/08/2024 Computed tomography for radiotherapy planning [facility] CT with contrast for radiotherapy planning [facility] Patient referral [facility] Work Phone: THIN PREP TIS PAP AN D HR HPV DNA THIN PREP TIS PAP AND HR HPV DNA Pathology and Cytology Routine Well woman exam with routine gynecological exam Ordered: 06/01/2024 [facility] [employer] Comment on above: Ordered: 06/01/2024 Immunizations Immunization Date Immunization Notes Care Provider Fa cili 12-06-2020 Covid-19, Mrna, Lnp-s, Pf, 30 Mcg/0.3 Ml Dose, Winston-sucrose Niurka Stockton RN [facility] 12-06-2020 SARS-CoV-2 (COVID-19 ) mRNA BNT-162b2 vax Reid Bauer [facility] Comment on above: Result Comment: 2022: [id number] 12-06-2020 SARS-COV-2 (COVID-19 ) Vaccine, Unspecified Niurka Stockton RN [facility] 11-15-2020 SARS-CoV-2 (COVID-19 ) mRNA BNT-162b2 vax [facility] Bauer [facility] Comment on above: Result Comment: 2022: [id number] 11-20-2019 influenza virus vaccine, unspecified formulation Reid Coatspsey [facility] [place] 11-14-2019 influenza virus vaccine, unspecified formulation Reid Coatspsey [facility] 11-14-2019 influenza, seasonal, injectable Randy G Furlong [facility] [employer] DO Work Phone: 12-13-2018 influenza virus vaccine, unspecified formulation Reid Coatspsey [facility] 12-13-2018 influenza, seasonal, injectable Randy G Furlong Work Phone: [facility] [employer] DO Work Phone: 12-10-2017 influenza virus vaccine, unspecified formulation Reid Coatspsey [facility] 12-10-2017 influenza, injectable, quadrivalent, contains preservative Randy G Furlong Work [facility]: [facility] [employer] DO Work Phone: 07-07-2017 tetanus toxoid, reduced diphtheria toxoid, and acellular pertussis vaccine, adsorbed Reid Coatspsey [facility] 01-19-2017 influenza virus vaccine, unspecified formulation Reidguadalupe CoatsJuancarlos [facility] 01-19-2017 influenza, injectable, quadrivalent, contains preservative Randy G Furlong Work Phone: [facility] DO Work Phone: 01-07-2016 influenza virus vaccine, unspecified formulation Reid Juancarlos [facility] 01-07-2016 influenza, injectable, quadrivalent, contains preservative Randy G Furlong Work Phone: [facility] [employer] DO Work Phone: 12-01-2015 influenza nasal, unspecified formulation Metro 4 [facility] 12-01-2015 influenza virus vaccine, unspecified formulation Randy G Furlong Work Phone: [facility] [employer] DO Work Phone: 12-01-2015 influenza, unspecified formulation Reid Juancarlos [facility] 12-27-2014 influenza virus vaccine, unspecified formulation Reid Juancarlos [facility] 12-27-2014 influenza, injectable, quadrivalent, contains preservative Randy G Furlong Work Phone: [facility] [employer] DO Work Phone: 12-06-2014 influenza, seasonal, injectable Niurka Stockton RN [facility] 01-05-2014 influenza virus vaccine, unspecified formulation Reid Juancarlos [facility] 01-05-2014 influenza, injectable, quadrivalent, contains preservative Randy G Furlong Work Phone: [facility] 250 DO Work Phone: 12-29-2012 influenza virus vaccine, unspecified formulation Reid Bauer [facility] 12-29-2012 influenza, seasonal, injectable Randy Calle Work Phone: [facility] DO Work Phone: 01-17-2009 novel [id number], preservative-free, injectable Randy Calle Work Phone: [facility] 250 DO Work Phone: NEGATED: Highlighted row has not occurred!04-10-2023 influenza virus vaccine, unspecified formulation Sandrita WILLETT [facility] [place] Payers Date Payer Category Payer Self-pay [id number] 05-01-2023 Medicaid HMO [facility] MEDICAID [id number] 05-01-2023 Private Health Insurance [id number] 03-02-2023 Medicaid [id number]. [id number] 03-02-2023 Private Health Insurance [id number] 03-02-2016 Unknown [id number] 1970 Unknown [id number] 2.16.840.1.341166.3.579. 2.718 1970 Unknown [id number] 2.16.840.1.265054.3.579. 2.718 1970 Unknown [id number] 2.16.840.1.772912.3.579. 2.718 1970 Unknown [id number] 2.16.840.1.365364.3.579. 2.71 1970 Unknown [id number] 2.16.840.1.090795.3.579. 2. 1970 Unknown [id number] 2.16.840.1.976447.3.579. 2. 1970 Unknown [id number] 2.16.840.1.339093.3.579. 2.71 1970 Unknown [id number] 2.16.840.1.399387.3.579. 2.593 1970 Unknown [id number] 2.16.840.1.921282.3.579. 2.593 1970 Unknown [id number] 2.16.840.1.936575.3.579. 2.356 1970 Unknown [id number] 2.16.840.1.864992.3.579. 2.356 1970 Unknown [id number] 2.16.840.1.731524.3.579. 2.356 1970 Unknown [id number] 2.16.840.1.613547.3.579. 2.356 1970 Unknown [id number] 2.16.840.1.684508.3.579. 2.1068 1970 Unknown [id number] 2.16.840.1.446253.3.579. 2.1244 1970 Unknown [id number] 2.16.840.1.422729.3.579. 2.727 1970 Unknown [id number] 2.16.840.1.193976.3.579. 2. 1970 Unknown [id number] 2.16.840.1.204428.3.579. 2.72 1970 Unknown [id number] 2.16.840.1.309286.3.579. 2.72 1970 Unknown [id number] 2.16.840.1.561879.3.579. 2.72 1970 Unknown [id number] 2.16.840.1.012314.3.579. 2. 1970 Unknown [id number] 2.16.840.1.237690.3.579. 2. 1970 Unknown [id number] 2.16.840.1.308998.3.579. 2.1258 1970 Unknown [id number] 2.16.840.1.349347.3.579. 2.1258 1970 Unknown [id number] 2.16.840.1.972524.3.579. 2.1258 1970 Unknown [id number] 2.16.840.1.510499.3.579. 2.1258 1970 Unknown [id number] 2.16.840.1.193581.3.579. 2.1258 1970 Unknown [id number] 2.16.840.1.814514.3.579. 2.1258 1970 Unknown [id number] 2.16.840.1.866268.3.579. 2.1258 1970 Unknown [id number] 2.16.840.1.993577.3.579. 2.1258 1970 Unknown [id number] 2.16.840.1.832444.3.579. 2.1259 1970 Unknown [id number] 2.16.840.1.480217.3.579. 2.128 1970 Unknown [id number] 2.16.840.1.228614.3.579. 2.1285 1970 Unknown [id number] 2.16.840.1.861659.3.579. 2.128 1970 Unknown [id number] 2.840.1.369679.3.579. 2.1285 1970 Unknown [id number] 2.840.1.723789.3.579. 2.128 1970 Unknown [id number] 2.840.1.614448.3.579. 2.1285 1970 Unknown [id number] 2.840.1.026558.3.579. 2.1285 1970 Unknown [id number] 2.840.1.809173.3.579. 2.128 1970 Unknown [id number] 2.840.1.695425.3.579. 2.1285 1970 Unknown [id number] 2.840.1.245915.3.579. 2.1285 1970 Unknown [id number] 2.840.1.985672.3.579. 2.1285 1970 Unknown [id number] 2.840.1.232189.3.579. 2.128 1970 Unknown [id number] 2.840.1.885179.3.579. 2.1285 1970 Unknown [id number] 2.840.1.657666.3.579. 2.1285 1970 Unknown [id number] 2.840.1.980927.3.579. 2.1285 1970 Unknown [id number] 2.840.1.301475.3.579. 2.1285 1970 Unknown [id number] 2.16.840.1.504498.3.579. 2.1285 1970 Unknown [id number] 2.16.840.1.210170.3.579. 2.1285 1970 Unknown [id number] 2.16.840.1.779766.3.579. 2.1285 1970 Unknown [id number] 2..840.1.429006.3.579. 2.1285 1970 Unknown [id number] 2.840.1.927054.3.579. 2.1285 1970 Unknown [id number] 2.840.1.247876.3.579. 2.1285 1970 Unknown [id number] 2.840.1.995855.3.579. 2.1285 1970 Unknown [id number] 2.840.1.644757.3.579. 2.1285 1970 Unknown [id number] 2.840.1.460010.3.579. 2.1285 1970 Unknown [id number] 2.840.1.133959.3.579. 2.1285 1970 Unknown [id number] 2.840.1.963984.3.579. 2.1285 1970 Unknown [id number] 2.840.1.228476.3.579. 2.1285 1970 Unknown [id number] 2.840.1.227029.3.579. 2.1285 1970 Unknown [id number] 2.840.1.077216.3.579. 2.1285 1970 Unknown [id number] 2.840.1.650621.3.579. 2.1285 1970 Unknown [id number] 2.16840.1.265471.3.579. 2.1285 1970 Unknown [id number] 2.840.1.692277.3.579. 2.1285 1970 Unknown [id number] 2.16.840.1.231896.3.579. 2.1285 1970 Unknown [id number] 2.840.1.594079.3.579. 2.1285 1970 Unknown [id number] 2.840.1.690880.3.579. 2.1285 1970 Unknown [id number] 2.840.1.484882.3.579. 2.1285 1970 Unknown [id number] 2.840.1.291102.3.579. 2.1285 1970 Unknown [id number] 2.840.1.043727.3.579. 2.1285 1970 Unknown [id number] 2.840.1.280966.3.579. 2.1285 1970 Unknown [id number] 2.840.1.396665.3.579. 2.1285 1970 Unknown [id number] 2.840.1.925845.3.579. 2.1285 1970 Unknown [id number] 2.840.1.704839.3.579. 2.1285 1970 Unknown [id number] 2.840.1.730559.3.579. 2.1285 1970 Unknown [id number] 2.840.1.491770.3.579. 2.1285 1970 Unknown [id number] 2.16.840.1.657838.3.579. 2.1285 1970 Unknown [id number] 2.16840.1.923732.3.579. 2.128 1970 Unknown [id number] 2.16.840.1.651650.3.579. 2.1285 1970 Unknown [id number] 2.16.840.1.941112.3.579. 2.1285 1970 Unknown [id number] 2.16.840.1.661258.3.579. 2.1285 1970 Unknown [id number] 2.16.840.1.671369.3.579. 2.1285 1970 Unknown [id number] 2.16.840.1.925744.3.579. 2.1285 1970 Unknown [id number] 2.16.840.1.417393.3.579. 2.1285 1970 Unknown [id number] 2.16840.1.607501.3.579. 2.1285 1970 Unknown [id number] 2.16840.1.515116.3.579. 2.1285 1970 Unknown [id number] 2.16.840.1.704816.3.579. 2.1285 1970 Unknown [id number] 2.16.840.1.908665.3.579. 2.1285 1970 Unknown [id number] 2.16840.1.731190.3.579. 2.1285 1970 Unknown [id number] 2.16.840.1.893972.3.579. 2.1285 1970 Unknown [id number] 2.16.840.1.128988.3.579. 2.1285 1970 Unknown [id number] 2.16.840.1.505456.3.579. 2.1285 1970 Unknown [id number] 2.16.840.1.174673.3.579. 2.1285 1970 Unknown [id number] 2.16.840.1.968408.3.579. 2.1285 1970 Unknown [id number] 2.0.1.517045.3.579. 2.1285 1970 Unknown [id number] 2.840.1.850218.3.579. 2.1285 1970 Unknown [id number] 2.0.1.572255.3.579. 2.1285 1970 Unknown [id number] 2.0.1.559805.3.579. 2.1285 1970 Unknown [id number] 2..1.966227.3.579. 2.1285 1970 Unknown [id number] 2.0.1.339104.3.579. 2.1285 1970 Unknown [id number] 2..1.662869.3.579. 2.1285 1970 Unknown [id number] 2.0.1.461992.3.579. 2.1285 1970 Unknown [id number] .1.859304.3.579. 2.128503-02-1959 Private Health Insurance [id number] .1.231965.19 Unknown Unknown [id number] Unknown Insurance No Card [id number] Unknown [id number] .840.1.402109.3.579. 2.531 Unknown [id number] 2.0.1.167950.3.579. 2.531 Unknown [id number] 2.840.1.361579.3.579. 2.531 Unknown [id number] 2.840.1.980254.3.579. 2.531 Unknown [id number] .840.1.118969.3.579. 2.531 Social History Date Type Detail Facility Unknown if ever smoked [facility] Other Start: 01-04-2023 End: 07-21-2024 Sex Assigned At [facility] Start: 07-14-2022 End: 07-19-2024 Tobacco smoking status Never smoked tobacco (finding) [facility] Start: 12-02-2023 Tobacco smoking status Never [facility] Start: 01-04-2023 End: 07-21-2024 Social alcohol use Social alcohol use [facility] Start: 1970 Sex Assigned At Female F [facility] Start: 04-02-2023 End: 06-01-2024 Alcohol intake Lifetime non-drinker (finding) [facility] Start: 01-04-2023 Alcohol Comment Caffeine intak e: 1-2 cups per day [facility] Start: 1970 Sex Assigned At Not on file N [facility] Start: 01-25-2024 End: 07-19-2024 Tobacco use and exposure Smokeless tobacco non-user [facility] Start: 12-14-2023 End: 08-03-2024 Alcoholic beverage intake Current drinker of alcohol (finding) [facility] Has the [employer], [employer] threatened to shut off services in your home in past 12Mo No [facility] Do you belong to any clubs or organizations such as gnosticism groups, unions, fraternal or athletic groups, or school groups? Yes [facility] Are you now , , , , never or living with a partner? [facility] How often to you hav e a drink containing alcohol? 2-3 time sa week [facility] How many standard drinks containing alcohol do you have on a typical day? 1 or 2 [facility] How often do you hav e 6 or more drinks on 1 occasion? Less than monthly [facility] Do you feel stress - tense, restless, nervous, or anxious, or unable to sleep at night because your mind is troubled all the time - these days [OSQ] To some extent [facility] Start: 02-27-2022 Education 21 [facility] Start: 10-16-2023 Alcohol Comment Socially [facility] Start: 10-05-2014 End: 06-06-2024 Sex Female (finding) [facility] History of tobacco use Passive smoker [facility] Sexual Orientation [facility] Tobacco smoking stat [facility] Tobacco smoking consumption unknown [facility] Work Phone: Start: 07-19-2024 End: 10-11-2024 Alcoholic beverage intake Ex-drinker (finding) [facility] Start: 07-19-2024 Alcohol Comment Occasional wine [facility] (I/We) worried wheth er (my/our) food would run out before (I/we) got money to buy more. Never true [facility] NEGATED: Highlighted rowStart: NINF History of tobacco use Passive smoker [facility] Medical Equipment Procedure Code Equipment Code Equipment Origin al Text Equipment Identifier Dates Cnc Machine Setter Tiss [id number] Brst 480-575cc Txtr Intgr Port Allox2 - [id number] - [id number] Start: 10-28-2023 Cnc Machine Setter Tiss [id number] Brst 480-575cc Txtr Intgr Port Allox2 - [id number] - [id number] Start: 10-28-2023 Goals Date Patient Goal Desired Activity /State Personal health goal Comment on above: Formatting of this n ote might be different from the original. Evaluation of progress towards goal: progressing, patient will return home at discharge Formatting of this n ote might be different from the original. Evaluation of progress towards goal: progressing, patient will return home at discharge/follow up [facility] clinic Personal health goal Personal health goal Personal health goal Functional Status Date Assessment Result Facility 05-22-2024 Functional Status N/A [facility] 05-03-2024 Humiliation, Afraid, Rape, and Kick questionnaire [HARK] [facility] 12-28-2023 Functional Status N/A [facility] 04-10-2023 Functional Status N/A [facility] [place] 07-14-2022 Functional Status N/A [facility] Clinical Notes 01-18-2021 to 10-17-2024 Pre-Procedure Instructions - Janet Ren RN - 2024 2:15 PM EDTPre- Procedure Instructions - Janet Ren RN - 2024 2:15 PM EDTGCorrina barajas RT(R) - 10/07/2024 9:45 AM EDT Note Date & Type Note Facility 10-17-2024 Note Theraputic amikacin level Univer [facility] 10-12-2024 Note CULTURE RESULTS Culture in progress FUNGAL SMEAR No fungal elements seen On Direct Smear [facility] Comment on above: Order Comment: Pre-o p diagnosis:BREAST WOUND LEFT Performed By: #### F XIAO ####[facility] (TT)[address] [address] VIR 10-12-2024 Note Reviewed, amikacin p eak within goal range [facility] 2024 Instructions Formatting of th is note might be different from the original. Your surgery/procedure is scheduled at [facility] on October 12 2024 at 5;00 pm Arrival Time 3:00 pm [facility] Address: [address] [place] [address], [address] Park in the Emergency Center Parking lot. Report to the front end loader operator in the Emergency/Surgery Registration lobby of the hospital. Notify your SURGEON if you develop any illness such as a cold, cough, fever, sore throat, vomiting or are hospitalized between now and your surgery. Please call Pre-Admission Clinic at [phone] if you have any questions prior to surgery. For questions the morning of surgery, call the Pre-op Department at [phone]. Medication Instructions (Do not stop your medications without consulting the prescribing physician). Take the following medications the morning of surgery with a sip of water: Sertraline, Gabapentin, Pepcid, Carvedilol, Decadron Diabetic or Weight loss medications: Take inhalers as prescribed the morning of [...] drink alcohol 24 hours before your surgery. Alcohol thins the blood and may cause bleeding problems during surgery Smoking increases the risk of breathing problems after surgery. It also increases your risk for infection, and may delay healing. Do not use lotions, creams, powders, perfume, make up, cologne or after-shaves day of surgery. Remove ALL jewelry including wedding rings, body piercings, hair extensions that contain metal, nail malagasy, make-up, and contact lens. You may brush your teeth the morning of surgery, but do not swallow the water. Wear your dentures and partial plates to the hospital (no adhesive). Shower the night before your procedure. If applicable, use the CHG (chlorhexidine gluconate) soap or wipes. Please place clean linens on your bed after showering. Do not allow your pets in your bed. Please be advised, [facility] has transitioned to a cashless payment system. What should I bring to the hospital? Eyeglass or contact lens case If you will be spending the night, please bring personal care items and leave them in the car until you are taken to your room after surgery. Leave ALL valuables at home. If any of these instructions conflict with those you received from the surgeon, please seek clarification from [...] RIGHTS AND RESPONSIBILITIES As a patient at [facility], you have the right to: Receive medical care and be informed of who is taking care of you Be treated with dignity and respect Have a family member/registration representative of choice and your physician notified of your admission Receive information and actively participate in decisions about your care and treatment Refuse care, treatment and services Decide who may provide your support and speak for you Access orthodoxy and spiritual services Participate in ethical issues [...] of hospital charges and payment methods Patient/patient registration representative responsibilities are to: Provide information about health status to facilitate care, treatment and services Follow the treatment, plan, keep appointments and speak up when you do not understand the plan Respect the rights of other patients and healthcare personnel Follow organizational rules and regulations that support quality care and a safe environment Fulfill financial obligations as promptly as possible [facility] 2024 Miscellaneous Notes Your surgery/procedure is scheduled at [facility] on October 12 2024 at 5;00 pm Arrival Time 3:00 pm [facility] Address: [address] [place] [address], [address] [place] [address] in the Emergency Center Parking lot. Report to the front end loader operator in the Emergency/Surgery Registration lobby of the hospital. Notify your SURGEON if you develop any illness such as a cold, cough, fever, sore throat, vomiting or are hospitalized between now and your surgery. Please call Pre-Admission Clinic at [phone] if you have any questions prior to surgery. For questions the morning of surgery, call the Pre-op Department at [phone]. Medication Instructions (Do not stop your medications without consulting the prescribing physician). Take the following medications the morning of surgery with a sip of water: Sertraline, Gabapentin, Pepcid, Carvedilol, Decadron Diabetic or Weight loss medications: Take inhalers as prescribed the morning of [...] weekly, hold 1 week prior to surgery: Mounediero . Blood thinners: Please contact your prescribing [...] drink alcohol 24 hours before your surgery. Alcohol thins the blood and may cause bleeding problems during surgery Smoking increases the risk of breathing problems after surgery. It also increases your risk for infection, and may delay healing. Do not use lotions, creams, powders, perfume, make up, cologne or after-shaves day of surgery. Remove ALL jewelry including wedding rings, body piercings, hair extensions that contain metal, nail malagasy, make-up, and contact lens. You may brush your teeth the morning of surgery, but do not swallow the water. Wear your dentures and partial plates to the hospital (no adhesive). Shower the night before your procedure. If applicable, use the CHG (chlorhexidine gluconate) soap or wipes. Please place clean linens on your bed after showering. Do not allow your pets in your bed. Please be advised, [facility] has transitioned to a cashless payment system. What should I bring to the hospital? Eyeglass or contact lens case If you will be spending the night, please bring personal care items and leave them in the car until you are taken to your room after surgery. Leave ALL valuables at home. If any of these instructions conflict with those you received from the surgeon, please seek clarification from [...] RIGHTS AND RESPONSIBILITIES As a patient at [facility], you have the right to: Receive medical care and be informed of who is taking care of you Be treated with dignity and respect Have a family member/registration representative of choice and your physician notified of your admission Receive information and actively participate in decisions about your care and treatment Refuse care, treatment and services Decide who may provide your support and speak for you Access orthodoxy and spiritual services Participate in ethical issues [...] of hospital charges and payment methods Patient/patient registration representative responsibilities are to: Provide information about [...] promptly as possible documented in this encounter [facility] 10-07-2024 Note HNO ID: [id number] Author: JOSUE MCCAIN DO, PhD Service: ? Author Type: Physician Type: Progress Notes Filed: 10/07/2024 15:37 Note Text: [facility] [address] [place] [address] [place] OPERATIVE REPORT NAME: Ike Flannery [facility] NO.: [id number] MASK SIMULATION DATE: 2024-10-07 RADIATION TREATMENT START DATE: 2024-10-07 RADIATION TREATMENT END DATE: 2024-10-07 NUMBER OF FRACTIONS: 1 PREOPERATIVE DIAGNOSIS: Bilateral Metastasis, breast POSTOPERATIVE DIAGNOSIS: Same OPERATION: 1 fraction mask gamma knife radiosurgery. Second stage based on tumor size. ANESTHESIA: None SURGEON: Josue Mccain DO, PhD - Stereotactic treatment planning. RADIATION ONCOLOGIST: Marcos Mcgill M.D. ASSISTANTS: NONE SPECIMEN: None EBL: 0 ccs OPERATIVE INDICATIONS: The full clinical history and indications for treatment were discussed in the initial neurosurgery visit note. The indications, risks, benefits, and alternatives were discussed with the patient who asked us to proceed. The patient is aware that this may be one of several staged procedures in the management of this disorder. OPERATIVE FINDINGS: DESCRIPTION OF PROCEDURE: The patient was admitted to the Gamma Knife Center. The Leksell mask was created and a stereotactic cone-beam CT was obtained. The patient then underwent high-resolution MRI and CT imaging. The scans, including the cone-beam registration CT, were loaded in the planning computer and Leksell gamma plan was used to perform fractionated radiosurgery dose planning. The lesion was treated as follows: Target 1 (vermis 2nd stage) Location: vermis 2nd stage Prescription: 12 Gy to the 55% local isodose line. The plan uses 23 shots covering 100% of the target. GTV Volume: 3.86 cm3 CTV Volume: 3.86 cm3 Max linear size: 2.1 cm Conformality Index (PIV/CTV) = 1.168 Complexity: Simple Gradient Index: 2.8 Number of Fractions: 1 After the usual quality rep procedures were performed, fractionated radiosurgery was delivered with use of the Gamma Knife. The Gamma Knife checklists and time outs were performed during this procedure in a standard manner. Josue Mccain DO, PhD [facility] 10-07-2024 Miscellaneous Notes Spoke to pt Surgery is scheduled 10/12 at . Per Bill arrive at 12pm. NPO 8hrs prior. She spoke with Dr. Bri jung and was told to hold her xeloda and eliquis. documented in this encounter [facility] [employer] 10-07-2024 Telephone encounter Note Spoke to pt Surgery is scheduled 10/12 at . Per Bill arrive at 12pm. NPO 8hrs prior. She spoke with Dr. Gregory office and was told to hold her xeloda and eliquis. [facility] [employer] [facility] 10-07-2024 History of Present illness Narrative Radiology Service Progress Note PATIENT NAME: Ike Flannery DATE OF SERVICE: October 07, 2024 TIME: 8:47 AM PATIENT IDENTITY VERIFICATION COMPLETED USING TWO (2) IDENTIFIERS: Name and Date of confirmed by patient verbally and Name and Date of confirmed by identification band. FALL SCREENING: Has the patient had 2 falls in the last year or 1 fall with injury or currently using an Ambulatory Assistive Device (Walker, Cane, Wheelchair, Crutches, etc.)? No PATIENT GENDER DATA: Assigned female at . status: : No status: NO. PATIENT RELEVANT IMPLANT DATA REVIEWED: Yes PATIENT PRESENTS WITH AN IMPLANTABLE OR ATTACHED HAND THERMAL CUTTER: No RADIOLOGY DEPARTMENT: CT; Exam(s) Completed: Brain PERIPHERAL IV DATA: Not applicable SIGNED BY: RT Ivan(Radha) October 07, 2024 8:47 AM documented in this encounter [facility] 10-07-2024 Note HNO ID: [id number] Author: CORRINA GRIDER RT(R) Service: ? Author Type: Technologist Type: Progress Notes Filed: 10/07/2024 08:47 Note Text: Radiology Service Progress Note PATIENT NAME: Ike Flannery DATE OF SERVICE: October 07, 2024 TIME: 8:47 AM PATIENT IDENTITY VERIFICATION COMPLETED USING TWO (2) IDENTIFIERS: Name and Date of confirmed by patient verbally and Name and Date of confirmed by identification band. FALL SCREENING: Has the patient had 2 falls in the last year or 1 fall with injury or currently using an Ambulatory Assistive Device (Walker, Cane, Wheelchair, Crutches, etc.)? No PATIENT GENDER DATA: Assigned female at . status: : No status: NO. PATIENT RELEVANT IMPLANT DATA REVIEWED: Yes PATIENT PRESENTS WITH AN IMPLANTABLE OR ATTACHED HAND THERMAL CUTTER: No RADIOLOGY DEPARTMENT: CT; Exam(s) Completed: Brain PERIPHERAL IV DATA: Not applicable SIGNED BY: RT Ivan(R) October 07, 2024 8:47 AM [facility] 10-07-2024 History of Present illness Narrative Radiology Service Progress Note DATE OF SERVICE: [...] Assigned female at . status: : No status: NO. ALLERGIES: Reviewed and unchanged CONTRAST ALLERGY: No EXAM: MRI - CONTRAST TYPE: GROUP II IV SITE: Ambulatory: A power injectable PICC was accessed in the Left side. Blood Return, Flushed easily with normal saline, Good Blood Return Post Injection, Flushed with 20 cc saline, and No Complications and A Saline lock was inserted per protocol IV SITE APPEARANCE: Clean,Dry and Intact SIGNATURE: Galo Allen RN PATIENT NAME: Ike Flannery DATE: October 07, 2024 TIME: 7:38 AM Radiology Service Progress Note PATIENT NAME: Ike Flannery DATE OF SERVICE: October 07, 2024 TIME: 8:06 AM PATIENT IDENTITY VERIFICATION COMPLETED USING TWO (2) IDENTIFIERS: Name and Date of confirmed by patient verbally. FALL SCREENING: Has the patient had 2 falls in the last year or 1 fall with injury or currently using an Ambulatory Assistive Device (Walker, Cane, Wheelchair, Crutches, etc.)? No PATIENT GENDER DATA: Assigned female at . status: : No status: NO. PATIENT RELEVANT IMPLANT DATA REVIEWED: Yes PATIENT PRESENTS WITH AN IMPLANTABLE OR ATTACHED HAND THERMAL CUTTER: No RADIOLOGY DEPARTMENT: MR; Exam(s) Completed: Head: Localization. Aromatherapy Administered: No PERIPHERAL IV DATA: Site assessment: Clean,Dry and Intact, Site disposition Discontinued SIGNED BY: RT Taniya(R) October 07, 2024 8:06 AM documented in this encounter [facility] 10-07-2024 Note HNO ID: [id number] Author: GALO ALLEN RN Service: Radiology Author Type: Registered Nurse Type: Progress Notes Filed: 10/07/2024 07:41 Note Text: Radiology Service Progress Note DATE OF SERVICE: [...] Assigned female at . status: : No status: NO. ALLERGIES: Reviewed and unchanged CONTRAST ALLERGY: No EXAM: MRI - CONTRAST TYPE: GROUP II IV SITE: Ambulatory: A power injectable PICC was accessed in the Left side. Blood Return, Flushed easily with normal saline, Good Blood Return Post Injection, Flushed with 20 cc saline, and No Complications and A Saline lock was inserted per protocol IV SITE APPEARANCE: Clean,Dry and Intact SIGNATURE: Galo Allen RN PATIENT NAME: Ike Flannery DATE: October 07, 2024 TIME: 7:38 AM [facility] 10-07-2024 Note HNO ID: [id number] Author: CORRY BEAL RT(R) Service: Radiology Author Type: Technologist Type: Progress Notes Filed: 10/07/2024 08:31 Note Text: Radiology Service Progress Note PATIENT NAME: Ike Flannery DATE OF SERVICE: October 07, 2024 TIME: 8:06 AM PATIENT IDENTITY VERIFICATION COMPLETED USING TWO (2) IDENTIFIERS: Name and Date of confirmed by patient verbally. FALL SCREENING: Has the patient had 2 falls in the last year or 1 fall with injury or currently using an Ambulatory Assistive Device (Walker, Cane, Wheelchair, Crutches, etc.)? No PATIENT GENDER DATA: Assigned female at . status: : No status: NO. PATIENT RELEVANT IMPLANT DATA REVIEWED: Yes PATIENT PRESENTS WITH AN IMPLANTABLE OR ATTACHED HAND THERMAL CUTTER: No RADIOLOGY DEPARTMENT: MR; Exam(s) Completed: Head: Localization. Aromatherapy Administered: No PERIPHERAL IV DATA: Site assessment: Clean,Dry and Intact, Site disposition Discontinued SIGNED BY: Corry Beal, RT(R) October 07, 2024 8:06 AM [facility] 10-07-2024 Note HNO ID: [id number] Author: ALEXANDER BROWNING RN Service: ? Author Type: Registered Nurse Type: Progress Notes Filed: 10/07/2024 11:03 Note Text: October 07, 2024 0704 Ike arrived ambulatory with: self. Transportation home verified: yes, with Marvin. Hoffman here for today for imaging, mask fitting, pre-planning for Icon mask based Gamma Knife Stereotactic Radiosurgery by radiation therapist, and single session mask based treatment. ID verified with patient with two identifiers, name and birthdate. Alexander Browning RN Ike assessed for the following: Does Ike have any pain? No. Pain 0 on scale of 0-10 Does Ike have: Difficulty chewing and/or swallowing: no Fall risk assessment: Not at risk for falls Concerns about physical or emotional abuse: no Allergies reviewed with patient, yes. 1116-[address] Mask completed. To imaging for CT Scan and MRI. Ike Flannery returned to department for treatment # 1 of 1. Is patient on immunotherapy? No. Patient's Age: 53 Menstruation Status: Hysterectomy 921 Decadron 4 mg po and xanax 0.5 po given prior to Gamma Knife SRS per order of Dr. Adán MD. 98 Patient assisted to treatment room. Gamma Knife SRS begun. 1013 Gamma Knife Stereotactic Radiosurgery Completed. 1020 Discharge instructions given to patient. Instructions reviewed by this nurse and patient verbalized an understanding. Pt then discharged. 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 Localized disease at diagnosis s/p bilateral mastectomy and right ALND, [id number] disease and subsequent adjuvant RT completed 2023. DELIVERED DOSE: 1200.0 cGy was prescribed to the 55% isodose line, which covered 100% of the target. The plan utilized 23 shots using 16 mm and composite sectors. GTV volume = 3.86 cm3. Maximum dose = 2180.0 cGy. Maximum diameter = 2.1 cm. MD/PD = 1.817. PIV/CTV = 1.168. Gradient Index = 2.8. Number of Fractions = 1. 1 separate treatment plans were devised. ELAPSED TREATMENT TIME: 39 minutes (one session). TOLERANCE: Excellent. RESPONSE: To be evaluated. REMARKS: The patient will follow-up in 2 months with repeat MRI scan. Authorized user was present during the entire treatment. The total treatment time was within 10% of the written directive. Survivorship care planning was discussed with the patient. Staff Physician Marcos Mcgill M.D 56:23 AM Electronically Signed cc: Dr. Josue Mccain documented in this encounter [facility] 10-07-2024 History of Present illness Narrative IKE FLANNERY [id number] 10/07/2024 [facility]u Reidhardt [facility] GAMMA KNIFE STEREOTACTIC RADIOSURGERY (SRS) DAILY PROCEDURE NOTE FRACTION NUMBER: 1 of 1 CUMULATIVE DOSE: 12Gy (Out of a planned 12Gy) for Vermis 2nd stage DIAGNOSIS: paste from simulation note PROCEDURE: Under my direct supervision the patient was set up on the treatment table and all treatment parameters were verified, including patient identity and treatment site. CBCT obtained which was co-registered using the treatment planning system. Adaptive replan was verified and approved. Once the beam was turned on, the patient position and target location were continuously monitored during delivery of the SRS using infrared tracking. At all points of decision-making with regard to patient setup, I conferred with the medical receptionist biller to approve the final setup. I was available throughout the SRS treatment to manage the execution of the treatment and make real-time adjustments in response to patient motion, target movement, or equipment issues to ensure accuracy and safety. The patient was evaluated by me after treatment and was discharged in stable condition. TREATMENT VOLUMES: GTV (Defined by neurosurgeon) PHYSICIST NAME: Alexis Forbes, PhD INTERVENTIONS: None ASSESSMENT/PLAN: Patient tolerated procedure well. We will continue as planned. Electronically Signed Marcos Mcgill M.D. 56:36 AM documented in this encounter [facility] 10-07-2024 Note HNO ID: [id number] Author: MARCOS MCGILL MD Service: Radiation Oncology Author Type: Physician Type: Progress Notes Filed: 10/13/2024 06:36 Note Text: NICCHENIKE [id number] 10/07/2024 [facility] Marilu Castro [facility] GAMMA KNIFE STEREOTACTIC RADIOSURGERY (SRS) DAILY PROCEDURE NOTE FRACTION NUMBER: 1 of 1 CUMULATIVE DOSE: 12Gy (Out of a planned 12Gy) for Vermis 2nd stage DIAGNOSIS: paste from simulation note PROCEDURE: Under my direct supervision the patient was set up on the treatment table and all treatment parameters were verified, including patient identity and treatment site. CBCT obtained which was co-registered using the treatment planning system. Adaptive replan was verified and approved. Once the beam was turned on, the patient position and target location were continuously monitored during delivery of the SRS using infrared tracking. At all points of decision-making with regard to patient setup, I conferred with the medical receptionist biller to approve the final setup. I was available throughout the SRS treatment to manage the execution of the treatment and make real-time adjustments in response to patient motion, target movement, or equipment issues to ensure accuracy and safety. The patient was evaluated by me after treatment and was discharged in stable condition. TREATMENT VOLUMES: GTV (Defined by neurosurgeon) PHYSICIST NAME: Alexis Forbes, PhD INTERVENTIONS: None ASSESSMENT/PLAN: Patient tolerated procedure well. We will continue as planned. Electronically Signed Marcos Mcgill M.D. :36 AM [facility] 10-07-2024 Note HNO ID: [id number] Author: MARCOS MCGILL MD Service: Radiation Oncology Author Type: Physician Type: Progress Notes Filed: 10/13/2024 06:23 Note Text: IKE FLANNERY [id number] 10/07/2024 [facility] / Department of Radiation Oncology RADIATION ONCOLOGY - COMPLETION NOTE START DATE OF TREATMENT: October 07, 2024 END DATE OF TREATMENT: October 07, 2024 UNIT: Gamma Knife AREA TREATED: vermis 2nd stage DISEASE: 53 year old year old woman with breast cancer metastatic to liver and brain. Localized disease at diagnosis s/p bilateral mastectomy and right ALND, [id number] disease and subsequent adjuvant RT completed 2023. DELIVERED DOSE: 1200.0 cGy was prescribed to the 55% isodose line, which covered 100% of the target. The plan utilized 23 shots using 16 mm and composite sectors. GTV volume = 3.86 cm3. Maximum dose = 2180.0 cGy. Maximum diameter = 2.1 cm. MD/PD = 1.817. PIV/CTV = 1.168. Gradient Index = 2.8. Number of Fractions = 1. 1 separate treatment plans were devised. ELAPSED TREATMENT TIME: 39 minutes (one session). TOLERANCE: Excellent. RESPONSE: To be evaluated. REMARKS: The patient will follow-up in 2 months with repeat MRI scan. Authorized user was present during the entire treatment. The total treatment time was within 10% of the written directive. Survivorship care planning was discussed with the patient. Staff Physician Marcos Mcgill M.D :23 AM Electronically Signed cc: Dr. Josue Mccain [facility] 10-05-2024 History of Present illness Narrative Images from the original note were not included. [facility] Plastic & Reconstructive Surgery [address] Office Jhon Gross MD, PhD Marisela Cuevas, PLANNING LEAD-APPARATUS ENGINEERING TECHNOLOGIST Shereen Smallwood PA-C Plastic Surgery Progress Note Reason for visit : post-op History of present illness: Ike Flannery is a 53 y.o. female with a history of right breast cancer status post bilateral skin sparing mastectomies (He) and tissue putty mixer reconstruction in 10/28/2023. Her postoperative course was complicated by an infected seroma of her left breast requiring operative washout and tissue putty mixer removal 11/27/23. Intraoperative cultures demonstrated growth of [...] has gamma knife radiation scheduled for Thursday at [facility]. She has a whole-body PET scan scheduled next Thursday with oncology follow up on Thursday. The patient denies fever, chills, redness or drainage from surgical wound(s). Review of Systems: Denies surgical site concerns. All other symptoms negative except as noted in HPI. Physical Examination: Vitals: 10/05/24 1328 BP: 116/86 Pulse: 77 Resp: 15 Temp: 36.3 C (97.4 F) There is no height or weight [...] then applied. Discussed with patient and Dr. Gross regarding the blistering/bleb formation of her left breast. Dr. Gross would like to proceed with debridement next week. Patient is aware. We will work on scheduling a date and time and contact patient with this information. She is agreeable to plan. She was advised to call the office any questions or concerns in the interim. - AMEENA Rand 10/05/24 2:42 PM Please note that portions of this note were generated using voice recognition [employer] dictation software. Although every effort was made to ensure the accuracy of this automated control panel operator crude unit, some errors in control panel operator crude unit may have occurred. AMEENA Kennedy 10/05/24 1443 documented in this encounter [facility] [employer] [facility] 09-23-2024 Telephone encounter Note I spoke with Ike to let her know that her second stage of Gamma Knie will be scheduled for October 07. Ike verbalized agreement with this date and had no further questions or concerns at this time but knows to reach out if she does. [facility] Work Phone: 09-23-2024 Miscellaneous Notes I spoke with Ike to let her know that her second stage of Gamma Knie will be scheduled for October 07. Ike verbalized agreement with this date and had no further questions or concerns at this time but knows to reach out if she does. documented in this encounter [facility] 09-22-2024 Telephone encounter Note General Call Caller : Ike Contact Reason for Call : Patient would like a call back in regards to getting there next gamma knife appointment. Please advise. Patient requesting return call ? Yes [facility] 09-22-2024 Miscellaneous Notes General Call Caller : Ike Contact Reason for Call : Patient would like a call back in regards to getting there next gamma knife appointment. Please advise. Patient requesting return call ? Yes documented in this encounter [facility] 09-20-2024 Miscellaneous Notes Patient called and stated she is suffering with more anxiety than usual and would like something called in to [facility] in [place]. Is she having anxiety and panic where she needs something as needed or more of a daily, residential anxiety medication? Patient would like residential medication. I sent her in zoloft 50mg daily - she should expect mild improvement in about 30 days - full effect in 8 wks - she can go up with dose if needed she should let me know Patient notified documented in this encounter [facility] 09-20-2024 Telephone encounter Note Patient called and stated she is suffering with more anxiety than usual and would like something called in to [facility] in [place]. [facility] 09-20-2024 Telephone encounter Note Is she having anxiety and panic where she needs something as needed or more of a daily, residential anxiety medication? [facility] 09-20-2024 Telephone encounter Note Patient would like residential medication. [facility] 09-20-2024 Telephone encounter Note I sent her in zoloft 50mg daily - she should expect mild improvement in about 30 days - full effect in 8 wks - she can go up with dose if needed she should let me know [facility] 09-20-2024 Telephone encounter Note Patient notified [facility] 09-16-2024 Instructions Geno Pierce APRN.CNP - 09/16/2024 9:16 AM EDT -Shower regularly to keep the incisions clean and inspect for signs of infection (due to decreased sensation). -Walking is encouraged, this helps reduce swelling and lowers the chance of blood clots. -Activity restrictions reviewed with patient. Refrain from reaching above shoulder height until 4-6 weeks post-op. Ok to occasionally raise above if absolutely necessary only if drains have all been removed, and you do not have any wound healing issues. -No lifting/pushing/pulling greater than 10 lbs for 6 weeks after surgery. Do not perform sign builder such as laundry and vacuuming. Do not perform yard work or gardening. -Continue to wear compressive front closing surgical bra/sports bra 22/09 (except when showering) avoid underwire. -No water submersion/baths until all incisions are fully healed, typically this takes 6 weeks. -Okay for tylenol alternating with ibuprofen for pain control (do not exceed 4 g tylenol in a 24 hour period, okay for ibuprofen 600-800 mg every 8 hours as needed for pain). -Okay for driving if not taking any narcotic pain medication and you feel like you can safely maneuver a vehicle. -Continue to sleep elevated until 2 weeks post-op. You can lie flat week 2, do not sleep on the surgical side 4 weeks after recent procedure. -Discussed signs and symptoms of infection including spreading redness, swelling of breasts, fever/chills. -If experiencing wound complications or have any questions or concerns during business hours call [phone], option 3 or after hours (after 5 pm or on the weekend) call [phone] and ask for the plastic surgery resident / fellow prison teacher for further instructions. If you have increasing swelling or bruising, particularly one side greater than the other. If swelling and redness persists after a few days. If you have increased redness along the incision. If you have severe or increased pain not relieved by medication. If you have an oral temperature of 100.4 degrees or higher. If you have any yellow or greenish drainage from the incisions or notice a foul smell. If you have bleeding from the incisions that is difficult to control with light pressure. documented in this encounter [facility] 09-16-2024 Note HNO ID: [id number] Author: GENO PIERCE APRN.CNP Service: ? Author Type: Nurse Practitioner Type: Progress Notes Filed: 09/16/2024 14:45 Note Text: Plastic Surgery Note CC: post op HPI: Ike is a 53 year old female who presents today for evaluation of s/p 08/30/2024 Dr. [place] 1. Excisional biopsy right breast skin 2. Explantation of right breast tissue putty mixer intact 3. Debridement of right breast pocket for closure and 20 x 20 cm ARTEMIO drain removed by Plastic Surgey team at [facility] Pt reports she is feeling well. Denies pain. Denies drainage from the incision. Denies fever/chills. Pathology FINAL DIAGNOSIS A. Right breast skin, excision: - Carcinoma involving dermis, see comment. B. Right breast, putty mixer removal: - Grossly unremarkable, collapsed, textured putty mixer (Gross examination only). SS/MLG at 1420 EDT Diagnosis Comment The morphologic features are compatible with breast origin. The lesion measures up to 10 mm and extends to inked specimen margins. ER, MD and HER2 are pending and will be reported separately. Gross Description A. Soft Tissue (Not otherwise [...] submitted as follows: A1: Tips A2-A3: Body [facility] 08/30/24 4:17 PM Gross examination performed at [facility], [address] [place] [address] B. Hardware/Device/Foreign Body Received fresh labeled as right breast tissue putty mixer is a collapsed textured putty mixer weighing 144.10 g and measuring 15.0 x 14.0 x 2.0 cm with the following inscription ALLOX2 SIENTRA FH 14 . No soft tissue is present. No sections are submitted. The specimen is reviewed with Dr. Kerns. Gross examination only. [facility] 08/30/24 1:20 PM Gross examination performed at [facility], [address] [id number] Clinical History Pre-op diagnosis: Cancer (HCC) [C80.1] History of reconstruction of both breasts [Z98.890] Performing Lab Diagnostic interpretation performed at: [facility], [facility], [facility] [address]# [id number] Cow Buyer: Derick Meadows MD Disclaimer PAST MEDICAL HISTORY Diagnosis Date Breast cancer (HCC) 04/02/2023 Completed therapy. On Estrogen jay therpay PAST SURGICAL HISTORY Procedure Laterality Date INSERTION OR REPLACEMENT OF BREAST IMPLANT ON SEPARATE DAY FROM MASTECTOMY BILATERAL Bilateral 10/28/2023 Current Outpatient Medications Medication Sig Dispense Refill famotidine (PEPCID) 20 mg tablet Take 1 tablet by mouth once daily. Patient should start on September 08, 2024. 10 tablet 0 dexAMETHasone (DECADRON) 2 mg tablet Take 2 tablets by mouth daily with breakfast for 5 days, THEN 1 tablet daily with breakfast for 5 days. Patient should start on September 08, 2024. 15 tablet 0 dexAMETHasone (DECADRON) 4 mg tablet Take 1 tablet by mouth daily with breakfast. 30 tablet 0 famotidine (PEPCID) 40 mg tablet Take 1 tablet by mouth once daily. 30 tablet 0 acyclovir (ZOVIRAX) 400 mg tablet Take 1 tablet by mouth two times a day. 60 tablet 0 sulfamethoxazole-trimethoprim (BACTRIM DS) 800-160 mg per tablet Take 1 tablet by mouth every Thursday, Thursday, and Thursday for 28 days. 12 tablet 0 0.9 % sodium chloride (NACL 0.9%) infusion amikacin (AMIKIN) 500 mg/2 mL soln ELIQUIS 5 mg tab(s) Take 5 mg by mouth. carvedilol (COREG) 12.5 mg tablet Take 12.5 mg by mouth. cyanocobalamin (VITAMIN B-12) 1,000 mcg tab Take 1,000 mcg by mouth. cyclobenzaprine (FLEXERIL) 10 mg tablet Take 1 tablet by mouth every evening. (Patient not taking: Reported on 09/07/2024) diazePAM (VALIUM) 5 mg tablet Take 1 tablet (5 mg total) by mouth every 12 (twelve) hours as needed for anxiety or muscle spasms (Give 30min prior to dressing change) for up to 10 days for anxiety FEROSUL 325 mg (65 mg iron) tablet Take 1 tablet by mouth two times a day with meals. folic acid 1 mg tablet Take 1 mg by mouth. gabapentin (NEURONTIN) 300 mg capsule Take 300 mg by mouth two times a day. hydrOXYzine HCl (ATARAX) 25 mg tablet Take 25 mg by mouth. imipenem/cilastatin sodium (IMIPENEM-CILASTATIN INTRAVENOUS) Inject 1,000 mg intravenously two times a day. magnesium oxide 400 mg magnesium tab Take 400 mg by mouth. omadacycline (NUZYRA) 150 mg tablet Take 300 mg by mouth. oxyCODONE IR (ROXICODONE) 10 mg tab Take 1 tablet by mouth every 6 hours as needed. oxyCODONE IR (ROXICODONE) 5 mg immediate release tablet Take 1 tablet (5 mg total) by mouth every 4 hours as needed for pain for up to 7 days. Max Daily (more content not included)... [facility] 09-16-2024 History of Present illness Narrative Plastic Surgery Note CC: post op HPI: Ike is a 53 year old female who presents today for evaluation of s/p 08/30/2024 Dr. [place] 1. Excisional biopsy right breast skin 2. Explantation of right breast tissue putty mixer intact 3. Debridement of right breast pocket for closure and 20 x 20 cm ARTEMIO drain removed by Plastic Surgey team at [facility] Pt reports she is feeling well. Denies pain. Denies drainage from the incision. Denies fever/chills. Pathology FINAL DIAGNOSIS A. Right breast skin, excision: - Carcinoma involving dermis, see comment. B. Right breast, putty mixer removal: - Grossly unremarkable, collapsed, textured putty mixer (Gross examination only). SS/MLG at 1420 EDT Diagnosis Comment The morphologic features are compatible with breast origin. The lesion measures up to 10 mm and extends to inked specimen margins. ER, MD and HER2 are pending and will be reported separately. Gross Description A. Soft Tissue (Not otherwise [...] submitted as follows: A1: Tips A2-A3: Body [facility] 08/30/24 4:17 PM Gross examination performed at [facility], [address] [place] [address] B. Hardware/Device/Foreign Body Received fresh labeled as right breast tissue putty mixer is a collapsed textured putty mixer weighing 144.10 g and measuring 15.0 x 14.0 x 2.0 cm with the following inscription ALLOX2 SIENTRA FH 14 . No soft tissue is present. No sections are submitted. The specimen is reviewed with Dr. Kerns. Gross examination only. MLG 08/30/24 1:20 [place] [address] Clinical History Pre-op diagnosis: Cancer (HCC) [C80.1] History of reconstruction of both breasts [Z98.890] Performing Lab Diagnostic interpretation performed at: [facility], [address] [place] [address], [facility] [place] [address] CLIA# [id number] Cow Buyer: Derick Meadows MD Disclaimer PAST MEDICAL HISTORY Diagnosis Date Breast cancer (HCC) 04/02/2023 Completed therapy. On Estrogen jay therpay PAST SURGICAL HISTORY Procedure Laterality Date INSERTION OR REPLACEMENT OF BREAST IMPLANT ON SEPARATE DAY FROM MASTECTOMY BILATERAL Bilateral 10/28/2023 Current Outpatient Medications Medication Sig Dispense Refill famotidine (PEPCID) 20 mg tablet Take 1 tablet by mouth once daily. Patient should start on September 08, 2024. 10 tablet 0 dexAMETHasone (DECADRON) 2 mg tablet Take 2 tablets by mouth daily with breakfast for 5 days, THEN 1 tablet daily with breakfast for 5 days. Patient should start on September 08, 2024. 15 tablet 0 dexAMETHasone (DECADRON) 4 mg tablet Take 1 tablet by mouth daily with breakfast. 30 tablet 0 famotidine (PEPCID) 40 mg tablet Take 1 tablet by mouth once daily. 30 tablet 0 acyclovir (ZOVIRAX) 400 mg tablet Take 1 tablet by mouth two times a day. 60 tablet 0 sulfamethoxazole-trimethoprim (BACTRIM DS) 800-160 mg per tablet Take 1 tablet by mouth every Thursday, Thursday, and Thursday for 28 days. 12 tablet 0 0.9 % sodium chloride (NACL 0.9%) infusion amikacin (AMIKIN) 500 mg/2 mL soln ELIQUIS 5 mg tab(s) Take 5 mg by mouth. carvedilol (COREG) 12.5 mg tablet Take 12.5 mg by mouth. cyanocobalamin (VITAMIN B-12) 1,000 mcg tab Take 1,000 mcg by mouth. cyclobenzaprine (FLEXERIL) 10 mg tablet Take 1 tablet by mouth every evening. (Patient not taking: Reported on 09/07/2024) diazePAM (VALIUM) 5 mg tablet Take 1 tablet (5 mg total) by mouth every 12 (twelve) hours as needed for anxiety or muscle spasms (Give 30min prior to dressing change) for up to 10 days for anxiety FEROSUL 325 mg (65 mg iron) tablet Take 1 tablet by mouth two times a day with meals. folic acid 1 mg tablet Take 1 mg by mouth. gabapentin (NEURONTIN) 300 mg capsule Take 300 mg by mouth two times a day. hydrOXYzine HCl (ATARAX) 25 mg tablet Take 25 mg by mouth. imipenem/cilastatin sodium (IMIPENEM-CILASTATIN INTRAVENOUS) Inject 1,000 mg intravenously two times a day. magnesium oxide 400 mg magnesium tab Take 400 mg by mouth. omadacycline (NUZYRA) 150 mg tablet Take 300 mg by mouth. oxyCODONE IR (ROXICODONE) 10 mg tab Take 1 tablet by mouth every 6 hours as needed. oxyCODONE IR (ROXICODONE) 5 mg immediate release tablet Take 1 tablet (5 mg total) by mouth every 4 hours as needed for pain for up to 7 days. Max Daily Amount 30 mg (Patient not taking: Reported on 09/07/2024) potassium chloride (K-TAB) 10 mEq tablet TAKE TWO TABLETS BY MOUTH TWICE A DAY prochlorperazine (COMPAZINE) 10 mg tablet (Patient not taking: Reported on 09/07/2024) pyridoxine, vitamin B6, (VITAMIN B6) 50 mg tablet Take 50 mg by mouth. spironolactone (ALDACTONE) 25 mg tablet Take 12.5 mg by mouth once daily. CLOFAZIMINE, BULK, MISC Take 100 mg by mouth. No current facility-administered medications for this visit. ALLERGIES Allergen Reactions Meperidine Other: See Comments, Rash, Swelling Other Reaction(s): Other, Unknown Vancomycin Other: See Comments Other Reaction(s): Other Intolerance: experienced acute kidney injury during a hospitalization, suspected due to vancomycin. Acute Kidney Injury Tetracycline Rash Adhesive Rash Ceftaroline Fosamil Other: See Comments Daptomycin Other: See Comments Other Reaction(s): Flushing Doxycycline Rash PE: There were no vitals taken for this visit. General: A&O x 3; NAD right breast incision with steri strips intact no s/s of infection no palpable fluid collections left chest wall/breast region with full thickness tissue injury. no s/s of acute infection Assessment: Ike is a 53 year old female who presents today 08/30/2024 Dr. [place] 1. Excisional biopsy right breast skin 2. Explantation of right breast tissue putty mixer intact 3. Debridement of right breast pocket for closure and 20 x 20 cm Plan: A photo was taken of the patient's surgical incision. Photos can be found in GET IMAGES. The purpose of the photo(s) is to optimize the patient's medical care and allow a visual aid to their wound evaluation and progress. Pt gave verbal consent for photos. reviewed pathology with patient. f/u with onc team and breast surgeon. Pt verbalized an understanding. f/u in 3 weeks. -Shower regularly to keep the incisions clean and inspect for signs of infection (due to decreased sensation). -Walking is encouraged, this helps reduce swelling and lowers the chance of blood clots. -Activity restrictions reviewed with patient. Refrain from reaching above shoulder height until 4-6 weeks post-op. Ok to occasionally raise above if absolutely necessary only if drains have all been removed, and you do not have any wound healing issues. -No lifting/pushing/pulling greater than 10 lbs for 6 weeks after surgery. Do not perform sign builder such as laundry and vacuuming. Do not perform yard work or gardening. -Continue to wear compressive front closing surgical bra/sports bra 22/09 (except when showering) avoid underwire. -No water submersion/baths until all incisions are fully healed, typically this takes 6 weeks. -Okay for tylenol alternating with ibuprofen for pain control (do not exceed 4 g tylenol in a 24 hour period, okay for ibuprofen 600-800 mg every 8 hours as needed for pain). -Okay for driving if not taking any narcotic pain medication and you feel like you can safely maneuver a vehicle. -Continue to sleep elevated until 2 weeks post-op. You can lie flat week 2, do not sleep on the surgical side 4 weeks after recent procedure. -Discussed signs and symptoms of infection including spreading redness, swelling of breasts, fever/chills. -If experiencing wound complications or have any questions or concerns during business hours call [phone], option 3 or after hours (after 5 pm or on the weekend) call [phone] and ask for the plastic surgery resident / fellow prison teacher for further instructions. If you have increasing swelling or bruising, particularly one side greater than the other. If swelling and redness persists after a few days. If you have increased redness along the incision. If you have severe or increased pain not relieved by medication. If you have an oral temperature of 100.4 degrees or higher. If you have any yellow or greenish drainage from the incisions or notice a foul smell. If you have bleeding from the incisions that is difficult to control with light pressure. Discussed with Dr. Miroslava Pierce APRN.CNP September 16, 2024 2:43 PM documented in this encounter [facility] 09-16-2024 History of Present illness Narrative Images from the original note were not included. Recording using [employer] software for draft documentation of the visit was discussed with the patient/authorized registration representative; all questions welcomed and answered. Patient/authorized registration representative agreed to proceed ATTENDING PHYSICIAN: Dr. Bobby Christy IDENTIFICATION: Ike Flannery is a 53 year old woman with an ER positive (41-50%), MD negative, Ovl6vai negative (IHC 0+) metastatic breast cancer with primary involvement of the liver and brain. REASON FOR VISIT / CHIEF COMPLAINT: evaluation prior to continuation of active therapy for metastatic breast cancer / hospital discharge follow up CURRENT SYSTEMIC THERAPY FOR BREAST CANCER: Capecitabine (she started her most recent cycle on 09/08) PAST THERAPY FOR BREAST CANCER: 2023 (initial diagnosis) Neoadjuvant taxol / carbo / pembro, followed by doxorubicin / cyclophosphamide Adjuvant pembrolizumab Bilateral mastectomy with right axillary dissection and tissue putty mixer placement Radiation Anastrozole (January 2024 - May 2024) May 2024 (metastatic diagnosis) Capecitabine (July 2024 - present) Gamma knife (September 07, 2024) INTERVAL HISTORY: Pt presents today by herself for evaluation prior to continuation of therapy for metastatic breast cancer. Metastatic Cancer: - Follows with oncologist in [place], usually monthly, but more frequently recently. - Started Xeloda on September 08; currently on treatment week, with off week starting on the . - Reports fatigue and decreased alertness after taking Xeloda; has not taken today's dose yet. - No nausea or diarrhea reported. - Noticed worsening neuropathy and steam drier tender fingers; no redness or peeling in palms. - Prefers Xeloda over other treatments due to concerns about hair loss. - Underwent Gamma Knife surgery; reports clearer thoughts and improved speech within 48 hours post-surgery. - Weekly blood work for oncology and infectious disease monitoring. - Last PET scan in May at [facility] - No current pain reported. REVIEW OF SYSTEMS: The remainder of the review of systems is unremarkable. PHYSICAL EXAMINATION: BP 149/92 Pulse 78 Temp 36.7 C (98.1 F) (Skin) Resp 18 Wt 91.3 kg (201 lb 4.5 oz) SpO2 100% BMI 28.88 kg/m ECOG PERFORMANCE STATUS: 1- Restricted in physically strenuous activity. Carries out light duty. General appearance: well appearing, alert, in no acute distress Skin: Skin color, texture, turgor normal, no rashes or lesions Head: unremarkable Neck: Supple, no adenopathy Lungs: lungs clear to auscultation, no wheezing or rhonchi Heart: Negative, RRR Extremities:Extremities normal. No deformities or edema. LABS/IMAGING: Latest Ref Rng & Units 09/01/2024 CMP Sodium 136 - 144 mmol/L 140 Potassium 3.7 - 5.1 mmol/L 4.0 Chloride 98 - 107 mmol/L 107 CO2 22 - 30 mmol/L 23 Glucose 74 - 99 mg/dL 105 BUN 7 - 21 mg/dL 19 Creatinine 0.58 - 0.96 mg/dL 1.03 EGFR >=60 mL/min/1.73m 65 Protein, Total 6.3 - 8.0 g/dL 5.7 Albumin 3.9 - 4.9 g/dL 3.7 Calcium 8.5 - 10.2 mg/dL 8.9 Bilirubin, Total 0.2 - 1.3 mg/dL 0.5 AST 13 - 35 U/L 72 ALT 7 - 38 U/L 109 Alkaline Phosphatase 34 - 123 U/L 75 Latest Ref Rng & Units 09/01/2024 CBC WBC 3.70 - 11.00 k/uL 7.56 RBC 3.90 - 5.20 m/uL 2.90 Hemoglobin 11.5 - 15.5 g/dL 9.5 Hematocrit 36.0 - 46.0 % 28.1 MCV 80.0 - 100.0 fL 96.9 MCH 26.0 - 34.0 pg 32.8 MCHC 30.5 - 36.0 g/dL 33.8 RDW-CV 11.5 - 15.0 % 19.4 Platelet Count 150 - 400 k/uL 210 MPV 9.0 - 12.7 fL 9.4 Baso% % 0.1 Abs Neut (ANC) 1.45 - 7.50 k/uL 5.88 Abs Lymph 1.00 - 4.00 k/uL 1.22 Abs [place] <0.87 k/uL 0.38 Abs Eosin <0.46 k/uL <0.03 Abs Baso <0.11 k/uL <0.03 NRBC /100 WBC 0.0 IMPRESSION: woman with an ER positive (41-50%), MD negative, Pjh7iae negative (IHC 0+) metastatic breast cancer with primary involvement of the liver and brain Current therapy: capecitabine Pt is without any signs or symptoms of recurrent or metastatic disease at the time of today's exam PLAN: After evaluation and review of the ongoing treatment plan, the following referral/recommendations have been made. (C50.919, C78.7) Breast cancer metastasized to liver, unspecified laterality (HCC) (primary encounter diagnosis) (Z51.81) Encounter for medication monitoring - Active listening and support provided / All questions / concerns were addressed to her satisfaction - Proceed with continuation of active therapy for metastatic breast cancer Capecitabine (she started her most recent cycle on 09/08) Prescription and lab work is being monitored / managed by her local oncology team - Continue to treat side effects symptomatically and call the office should the current interventions / recommendations be or become ineffective - There were NO physical concerns requiring further evaluation at this time - Next staging studies due: AugustSeptember 2024 (to be ordered by local team) - Follow up intermittently / as needed with Dr. Christy's team (every 3-6 months) She has been encouraged to call with any additional questions/concerns in the interim. Understanding verbalized. I spent a total of 30 minutes on the date of the service which included preparing to see the patient, [id number] patient care, completing clinical documentation, performing a medically appropriate examination, counseling and educating the patient/family/caregiver, ordering medications, tests, or procedures, and communicating results to the patient/family/caregiver. Alessandra ySed APRN.ESPERANZA Additional intake questions: Has the patient had fever, nausea, vomiting, diarrhea, constipation, fatigue for > 1 week? No Does the patient have a decreased appetite? No Does patient have any new or increased numbness or tingling of extremities? No Does patient need any prescription refills? No Does patient have an advanced directive in place? No, Patient referred to Resource Center Electronically Signed By: Alejandro Yang LPN documented in this encounter [facility] 09-16-2024 Note HNO ID: [id number] Author: ALESSANDRA SYED APRN.CNP Service: ? Author Type: Nurse Practitioner Type: Progress Notes Filed: 09/16/2024 08:33 Note Text: Recording using [employer] software for draft documentation of the visit was discussed with the patient/authorized registration representative; all questions welcomed and answered. Patient/authorized registration representative agreed to proceed ATTENDING PHYSICIAN: Dr. Bobby Christy IDENTIFICATION: Ike Flannery is a 53 year old woman with an ER positive (41-50%), MD negative, Bzl1med negative (IHC 0+) metastatic breast cancer with primary involvement of the liver and brain. REASON FOR VISIT / CHIEF COMPLAINT: evaluation prior to continuation of active therapy for metastatic breast cancer / hospital discharge follow up CURRENT SYSTEMIC THERAPY FOR BREAST CANCER: Capecitabine (she started her most recent cycle on 09/08) PAST THERAPY FOR BREAST CANCER: 2023 (initial diagnosis) Neoadjuvant taxol / carbo / pembro, followed by doxorubicin / cyclophosphamide Adjuvant pembrolizumab Bilateral mastectomy with right axillary dissection and tissue putty mixer placement Radiation Anastrozole (January 2024 - May 2024) May 2024 (metastatic diagnosis) Capecitabine (July 2024 - present) Gamma knife (September 07, 2024) INTERVAL HISTORY: Pt presents today by herself for evaluation prior to continuation of therapy for metastatic breast cancer. Metastatic Cancer: - Follows with oncologist in [place], usually monthly, but more frequently recently. - Started Xeloda on September 08; currently on treatment week, with off week starting on the . - Reports fatigue and decreased alertness after taking Xeloda; has not taken today's dose yet. - No nausea or diarrhea reported. - Noticed worsening neuropathy and steam drier tender fingers; no redness or peeling in palms. - Prefers Xeloda over other treatments due to concerns about hair loss. - Underwent Gamma Knife surgery; reports clearer thoughts and improved speech within 48 hours post-surgery. - Weekly blood work for oncology and infectious disease monitoring. - Last PET scan in May at [facility] - No current pain reported. REVIEW OF SYSTEMS: The remainder of the review of systems is unremarkable. PHYSICAL EXAMINATION: BP 149/92 Pulse 78 Temp 36.7 ?C (98.1 ?F) (Skin) Resp 18 Wt 91.3 kg (201 lb 4.5 oz) SpO2 100% BMI 28.88 kg/m? ECOG PERFORMANCE STATUS: 1- Restricted in physically strenuous activity. Carries out light duty. General appearance: well appearing, alert, in no acute distress Skin: Skin color, texture, turgor normal, no rashes or lesions Head: unremarkable Neck: Supple, no adenopathy Lungs: lungs clear to auscultation, no wheezing or rhonchi Heart: Negative, RRR Extremities:Extremities normal. No deformities or edema. LABS/IMAGING: Latest Ref Rng AND Units 09/01/2024 CMP Sodium 136 - 144 mmol/L 140 Potassium 3.7 - 5.1 mmol/L 4.0 Chloride 98 - 107 mmol/L 107 CO2 22 - 30 mmol/L 23 Glucose 74 - 99 mg/dL 105 BUN 7 - 21 mg/dL 19 Creatinine 0.58 - 0.96 mg/dL 1.03 EGFR >=60 mL/min/1.73m? 65 Protein, Total 6.3 - 8.0 g/dL 5.7 Albumin 3.9 - 4.9 g/dL 3.7 Calcium 8.5 - 10.2 mg/dL 8.9 Bilirubin, Total 0.2 - 1.3 mg/dL 0.5 AST 13 - 35 U/L 72 ALT 7 - 38 U/L 109 Alkaline Phosphatase 34 - 123 U/L 75 Latest Ref Rng AND Units 09/01/2024 CBC WBC 3.70 - 11.00 k/uL 7.56 RBC 3.90 - 5.20 m/uL 2.90 Hemoglobin 11.5 - 15.5 g/dL 9.5 Hematocrit 36.0 - 46.0 % 28.1 MCV 80.0 - 100.0 fL 96.9 MCH 26.0 - 34.0 pg 32.8 MCHC 30.5 - 36.0 g/dL 33.8 RDW-CV 11.5 - 15.0 % 19.4 Platelet Count 150 - 400 k/uL 210 MPV 9.0 - 12.7 fL 9.4 Baso% % 0.1 Abs Neut (ANC) 1.45 - 7.50 k/uL 5.88 Abs Lymph 1.00 - 4.00 k/uL 1.22 Abs [place] <0.87 k/uL 0.38 Abs Eosin <0.46 k/uL <0.03 Abs Baso <0.11 k/uL <0.03 NRBC /100 WBC 0.0 IMPRESSION: woman with an ER positive (41-50%), MD negative, [id number] negative (IHC 0+) metastatic breast cancer with primary involvement of the liver and brain Current therapy: capecitabine Pt is without any signs or symptoms of recurrent or metastatic disease at the time of today's exam PLAN: After evaluation and review of the ongoing treatment plan, the following referral/recommendations have been made. (C50.919, C78.7) Breast cancer metastasized to liver, unspecified laterality (HCC) (primary encounter diagnosis) (Z51.81) Encounter for medication monitoring - Active listening and support provided / All questions / concerns were addressed to her satisfaction - Proceed with continuation of active therapy for metastatic breast cancer Capecitabine (she started her most recent cycle on 09/08) Prescription and lab work is being monitored / managed by her local oncology team - Continue to treat side effects symptomatically and call the office should the current interventions / recommendations be or become ineffective - There were NO physical concerns requiring further gloria (more content not included)... [facility] 09-16-2024 Note HNO ID: [id number] Author: ALEJANDRO YANG LPN Service: ? Author Type: LICENSED NURSE Type: Progress Notes Filed: 09/16/2024 08:33 Note Text: Additional intake questions: Has the patient had fever, nausea, vomiting, diarrhea, constipation, fatigue for > 1 week? No Does the patient have a decreased appetite? No Does patient have any new or increased numbness or tingling of extremities? No Does patient need any prescription refills? No Does patient have an advanced directive in place? 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 Consent signed and reviewed with Avi Tobar [facility], patient and myself. Updated Consent reviewed and signed on 05/20/24 Clofazimine started on 02/15/2024 Swelling worse with clofazimine,has remained stable, has not worsened at this time, appears unchanged after several months Back on eliquis 06/30/2024 STOPPED CEFTAROLINE BECAUSE OF DRUG FEVER TEDIZOLID, INITIALLY STOPPED BECAUSE OF THROMBOCYTOPENIA STARTED OMADACYCLINE DUE FOR 3 MONTH EKG FOR CLOFAZIMINE AROUND 07/19 Antibiotics Imipenem: 12/05/2023 to present Ciprofloxacin:12/05/2023 to 12/11/2023 Clarithromycin 12/05/2023 to 01/15/2024 Linezolid 12/11/2023 to 01/01/2024 Tedizolid 01/02/2024 to 05/10/2024 Clofazimine 02/15/2024 to present Amikacin 04/15/2024 to present Ceftaroline 05/12/2024 to 05/26/2024 Omadacycline 05/27/2024 to present Levofloxacin 08/16/24-08/25/2024 08/16 Xeloda (capcitebine) Adenocarcinoma from liver biopsy, consistent with breast mets See Shereen again on Thursday, for wound evaluation. Cultures from 08/09 growing pseudomonas, it is imipenem resistant, and intermediate to meropenem, this is to be expected with the prolonged carbapenem exposure. Otherwise susceptible to cefepime, pip-tazo, and oral floroquinolones. The new wound is near the previous drain. Pembrolizumab stopped. 09/13 Follow up with [facility] again for additional gamma knife, she was found to have brain mets from her breast cancer. Right breast tissue putty mixer was removed for Brain MRI at [facility]. Last culture from 08/12 AFB is positive, though she has had good wound healing since her last debridement and has not required any further wound debridement. She will continue to follow with here in [place]. Xeloda is Presently on hold. If she continue to have good wound healing can likely consider a 6 month stop date from August, I would keep her on her current regimen as long as tolerated and ideally till her stop date would tentatively put it at 03/16/2025 Recommendations: PO Tedizolid 200mg once daily-stopped Continue clofazamine 100mg once daily, started on 02/15/24 Continued Addition of IV ceftaroline 600mg TID-STOPPED Imipenem has been extended and redosed 1g q12hrs with improved renal function Amikacin (STARTED 04/15/24) continued 3 times a week, current dose 900mg, with goal peak 30-35 09/09 peak 31 09/12 tough <0.8 Will need monitoring labs and 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 Desensitized to omadacycline-tolerating well Current regimen: Clofazimine 100mg daily Omadacycline 300mg daily Imipenem 1g q12hrs IV amikacin 900mg three times a week, with peaks around 30 to 35 At this time with continued wound healing would continue for next 6 months 03/16/2025 If needed an oral regimen can be used after completing the current regimen if extension is needed. May consist of omadacycline and clofazimine Batctrim and acyclovir prophylaxis for Spoke over the phone to [facility], they agree with our plan. Additional Isolate has been sent to [facility] lab of and for additional synergy testing Will setup telemeeting with them in the near future. New pseudomonas from 08/09 wound culture Start levofloxacin 750mg daily for 10 days-completed QTC 08/26: 398 Cr slight bump to 1.34 Monitor LFTs, transaminases slightly elevated, ALT remains elevated though stable 105-120 Most recent at 117 Subjective History of Present Illness: She was [facility] from 05/02/2024 to 05/13/2024. I had discussed with patient's plastic surgeon Dr. Gross that I was concerned about her left chest port and her continuing wound from the left breast area. After her appointment with me patient had sent in pictures of the wound dehiscing. I forwarded these pictures and my concerns to Dr. Gross's office who promptly had patient admitted to [facility] for left Mediport removal and additional debridement. While there she was continued on her IV amikacin, p.o. tedizolid, and oral clofazimine. She is initially receiving clofazimine at a lower dose of 50 mg however this was later corrected and she received her appropriate dose (more content not included)... [facility] 09-08-2024 History of Present illness Narrative [facility] [address] Office Jhon Gross MD, PhD Marisela Cuevas, PLANNING LEAD-APPARATUS ENGINEERING TECHNOLOGIST Shereen Smallwood PA-C Plastic Surgery Progress Note Reason for visit : post-op History of present illness: Ike Flannery is a 53 y.o. female with a history of right breast cancer status post bilateral skin sparing mastectomies (He) and tissue putty mixer reconstruction in 10/28/2023. Her postoperative course was complicated by an infected seroma of her left breast requiring operative washout and tissue putty mixer removal 11/27/23. 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 Patient was most recently admitted to [facility] on 08/26/2024 after her oncologist ordered a CT scan confirming brain metastasis after noticing that she was experiencing some slurring of her speech and right hand weakness She was admitted to [facility] and underwent removal of her right breast tissue putty mixer as an MRI was needed to further confirm and categorize her brain metastasis and her tissue putty mixer contained magnets. MRI showed multiple enhancing lesion representing metastasis, with at least 3 definite metastasis in inferior vermis, and enhancement in left IAC apex of unclear etiology. Radiation oncology was consulted and recommended GKRS. She presents today for follow-up and right breast drain removal. She does note some improvement in speech. She states that her left breast wound is healing appropriately. She has no issues in regards to her right breast. The patient is doing well postoperatively. The patient denies fever, chills, redness or drainage from surgical wound(s). Review of Systems: Denies surgical site concerns. All other symptoms negative except as noted in HPI. Physical Examination: Vitals: 09/08/24 0952 BP: 125/85 Pulse: 79 Resp: 16 Temp: 37 C (98.6 F) There is no height or weight on file to calculate BMI. GENERAL: no acute distress, well developed, well nourished. LYMPHATIC: no upper extremity lymphedema NEUROLOGIC: alert and oriented to time, place and person. PSYCH: judgement and insight good, mood/affect full range. Focused examination : Right breast incision is dry on exam. ARTEMIO drain is in place with serous sanguinous output. Output has decreased to under 10 mL a day and was removed in the office without complication. Dry dressing was placed over the drain site. Steri-Strips were left in place over her surgical incisions. Left breast tissue is at skin level. No evidence or concern for infection. Wound is in somewhat of a stagnant state. Silver nitrate was applied to the entire base of the wound. Patient was instructed to place Xeroform and ABD pad and changed daily. Impression: 1. Breast wound, left, sequela 2. Infection of deep incisional surgical site after procedure, subsequent encounter 3. Malignant neoplasm of lower-inner quadrant of right breast of female, estrogen receptor positive (CMS-HCC) 4. Mycobacterium abscessus infection 5. S/P breast reconstruction, bilateral Recommendations: Patient was instructed to continue with Xeroform and ABDs to the left breast. Wet-to-dry dressings no longer need to be performed at this time. We did discuss that occasionally these wounds require another round of silver nitrate to fully heal. I would like for her to follow-up in [address] Gross. SHEREEN SMALLWOOD PA-C Please note that portions of this note were generated using voice recognition [employer] dictation software. Although every effort was made to ensure the accuracy of this automated control panel operator crude unit, some errors in control panel operator crude unit may have occurred. Shereen Smallwood PA-C 09/09/24 1326 [facility] Note HNO ID: [id number] Author: JOSUE MCCAIN DO, PhD Service: ? Author Type: Physician Type: Progress Notes Filed: 09/07/2024 14:44 Note Text: [facility] [address] [place] [address] [place] OPERATIVE REPORT NAME: Ike Flannery [facility] NO.: [id number] MASK SIMULATION DATE: 2024-09-07 RADIATION TREATMENT START DATE: 2024-09-07 RADIATION TREATMENT END DATE: 2024-09-07 NUMBER OF FRACTIONS: 1 PREOPERATIVE DIAGNOSIS: Metastasis, breast POSTOPERATIVE DIAGNOSIS: Same OPERATION: 1 fraction mask gamma knife radiosurgery. First stage of 2 stages for size of metastasis greater than 2cm. ANESTHESIA: None SURGEON: Josue Mccain DO, PhD - Stereotactic treatment planning. RADIATION ONCOLOGIST: Sam Melo M.D. ASSISTANTS: NONE SPECIMEN: None EBL: 0 ccs OPERATIVE INDICATIONS: The full clinical history and indications for treatment were discussed in the initial neurosurgery visit note. The indications, risks, benefits, and alternatives were discussed with the patient who asked us to proceed. The patient is aware that this may be one of several staged procedures in the management of this disorder. OPERATIVE FINDINGS: DESCRIPTION OF PROCEDURE: The patient was admitted to the Gamma Knife Center. The Leksell mask was created and a stereotactic cone-beam CT was obtained. The patient then underwent high-resolution MRI and CT imaging. The scans, including the cone-beam registration CT, were loaded in the planning computer and Leksell gamma plan was used to perform fractionated radiosurgery dose planning. The lesions were treated as follows: Target 1 (l f) Location: l f Prescription: 24 Gy to the 85% local isodose line. The plan uses 1 shots covering 100% of the target. GTV Volume: 0.16 cm3 CTV Volume: 0.16 cm3 Max linear size: 0.7 cm Conformality Index (PIV/CTV) = 1.375 Complexity: Simple Gradient Index: 3.4 Number of Fractions: 1 Target 2 (l inf f) Location: l inf f Prescription: 24 Gy to the 93% local isodose line. The plan uses 1 shots covering 100% of the target. GTV Volume: 0.082 cm3 CTV Volume: 0.082 cm3 Max linear size: 0.67 cm Conformality Index (PIV/CTV) = 1.585 Complexity: Simple Gradient Index: 5.3 Number of Fractions: 1 Target 3 (vermis) Location: vermis Prescription: 18 Gy to the 56% local isodose line. The plan uses 29 shots covering 100% of the target. GTV Volume: 4.97 cm3 CTV Volume: 4.97 cm3 Max linear size: 2.3 cm Conformality Index (PIV/CTV) = 1.167 Complexity: Simple Gradient Index: 2.9 Number of Fractions: 1 After the usual quality rep procedures were performed, fractionated radiosurgery was delivered with use of the Gamma Knife. The Gamma Knife checklists and time outs were performed during this procedure in a standard manner. Josue Mccain DO, PhD [facility] 09-07-2024 History of Present illness Narrative [facility] [address] [place] [address] [place] OPERATIVE RE[id number] MASK SIMULATION DATE: 2024-09-07 RADIATION TREATMENT START DATE: 2024-09-07 RADIATION TREATMENT END DATE: 2024-09-07 NUMBER OF FRACTIONS: 1 PREOPERATIVE DIAGNOSIS: Metastasis, breast POSTOPERATIVE DIAGNOSIS: Same OPERATION: 1 fraction mask gamma knife radiosurgery. First stage of 2 stages for size of metastasis greater than 2cm. ANESTHESIA: None SURGEON: Josue Mccain DO, PhD - Stereotactic treatment planning. RADIATION ONCOLOGIST: Sam Melo M.D. ASSISTANTS: NONE SPECIMEN: None EBL: 0 ccs OPERATIVE INDICATIONS: The full clinical history and indications for treatment were discussed in the initial neurosurgery visit note. The indications, risks, benefits, and alternatives were discussed with the patient who asked us to proceed. The patient is aware that this may be one of several staged procedures in the management of this disorder. OPERATIVE FINDINGS: DESCRIPTION OF PROCEDURE: The patient was admitted to the Gamma Knife Center. The Leksell mask was created and a stereotactic cone-beam CT was obtained. The patient then underwent high-resolution MRI and CT imaging. The scans, including the cone-beam registration CT, were loaded in the planning computer and Leksell gamma plan was used to perform fractionated radiosurgery dose planning. The lesions were treated as follows: Target 1 (l f) Location: l f Prescription: 24 Gy to the 85% local isodose line. The plan uses 1 shots covering 100% of the target. GTV Volume: 0.16 cm3 CTV Volume: 0.16 cm3 Max linear size: 0.7 cm Conformality Index (PIV/CTV) = 1.375 Complexity: Simple Gradient Index: 3.4 Number of Fractions: 1 Target 2 (l inf f) Location: l inf f Prescription: 24 Gy to the 93% local isodose line. The plan uses 1 shots covering 100% of the target. GTV Volume: 0.082 cm3 CTV Volume: 0.082 cm3 Max linear size: 0.67 cm Conformality Index (PIV/CTV) = 1.585 Complexity: Simple Gradient Index: 5.3 Number of Fractions: 1 Target 3 (vermis) Location: vermis Prescription: 18 Gy to the 56% local isodose line. The plan uses 29 shots covering 100% of the target. GTV Volume: 4.97 cm3 CTV Volume: 4.97 cm3 Max linear size: 2.3 cm Conformality Index (PIV/CTV) = 1.167 Complexity: Simple Gradient Index: 2.9 Number of Fractions: 1 After the usual quality rep procedures were performed, fractionated radiosurgery was delivered with use of the Gamma Knife. The Gamma Knife checklists and time outs were performed during this procedure in a standard manner. Josue Mccain DO, PhD documented in this encounter [facility] 09-07-2024 Instructions Alexander Browning RN - 09/07/2024 11:06 AM EDT [facility] Gamma Knife Center Discharge Instructions As [...] nearest emergency room. These may or may not be symptoms of brain swelling. If you go to a physician or hospital other than the [facility] with any problem related to the Gamma Knife procedure, please call your physician, Dr. Sherly Mccain at [phone]. After your treatment, you may experience a mild headache. You may take non-aspirin pain medication, such as Tylenol, if you are having any [...] take any decadron for the remainder of today and stop taking any existing decadron medication. Please begin following the new decadron regimen below on 09/08/24: Start the day after your Gamma Knife Procedure: Decadron (Dexamethasone) 2 mg tablets: Take 4 mg (2 tablets) daily for 5 days: ( (Breakfast), Thursday (Breakfast), (Thursday (Breakfast), (Thursday (Breakfast), and Thursday (Breakfast), then Take 2 mg (1 tablet) daily for 5 days: (Thursday (Breakfast), Thursday (Breakfast), ( (Breakfast), (Thursday (Breakfast), and Thursday (Breakfast), then Stop Decadron. Take Decadron with a meal or snack. Pepcid (famotidine) 20 mg tablets: Take Pepcid 20 mg (1 tablet) daily while on Decadron. Stop Pepcid when you stop the Decadron. Resume all other regular medications. -Taking good care of your general health is an important step to recovery. Continue to eat well and get plenty of rest. If you have any non-urgent questions or concerns, please call your physician, Dr. Sherly Mccain at [phone] Thursday through Thursday 8:00 am to 5:00 pm. In the evening or on weekends, call [phone] or toll-free [phone] and ask the resizer operator to page your neurosurgeon's resident prison teacher. documented in this encounter [facility] 09-07-2024 History of Present illness Narrative Radiology Service Progress Note PATIENT NAME: Ike Flannery DATE OF SERVICE: September 07, 2024 TIME: 8:54 AM PATIENT IDENTITY VERIFICATION COMPLETED USING TWO (2) IDENTIFIERS: Name and Date of confirmed by patient verbally and Name and Date of confirmed by identification band. FALL SCREENING: Has the patient had 2 falls in the last year or 1 fall with injury or currently using an Ambulatory Assistive Device (Walker, Cane, Wheelchair, Crutches, etc.)? No PATIENT GENDER DATA: Assigned female at . status: : No status: NO. PATIENT RELEVANT IMPLANT DATA REVIEWED: Not Applicable PATIENT PRESENTS WITH AN IMPLANTABLE OR ATTACHED HAND THERMAL CUTTER: No RADIOLOGY DEPARTMENT: CT; Exam(s) Completed: Brain PERIPHERAL IV DATA: Not applicable SIGNED BY: RT Christine(Radha) September 07, 2024 8:54 AM documented in this encounter [facility] 09-07-2024 Note HNO ID: [id number] Author: CANDICE SANTILLAN RT(R) Service: Radiology Author Type: Technologist Type: Progress Notes Filed: 09/07/2024 08:54 Note Text: Radiology Service Progress Note PATIENT NAME: Ike Flannery DATE OF SERVICE: September 07, 2024 TIME: 8:54 AM PATIENT IDENTITY VERIFICATION COMPLETED USING TWO (2) IDENTIFIERS: Name and Date of confirmed by patient verbally and Name and Date of confirmed by identification band. FALL SCREENING: Has the patient had 2 falls in the last year or 1 fall with injury or currently using an Ambulatory Assistive Device (Walker, Cane, Wheelchair, Crutches, etc.)? No PATIENT GENDER DATA: Assigned female at . status: : No status: NO. PATIENT RELEVANT IMPLANT DATA REVIEWED: Not Applicable PATIENT PRESENTS WITH AN IMPLANTABLE OR ATTACHED HAND THERMAL CUTTER: No RADIOLOGY DEPARTMENT: CT; Exam(s) Completed: Brain PERIPHERAL IV DATA: Not applicable SIGNED BY: PATSY King) September 07, 2024 8:54 AM [facility] 09-07-2024 History of Present illness Narrative Radiology Service Progress Note DATE OF SERVICE: September 07, 2024 TIME: 8:18 AM PATIENT WEIGHT: 194 LBS PATIENT IDENTITY VERIFICATION COMPLETED USING TWO (2) STANDARD IDENTIFIERS: Name and Date of confirmed by patient verbally. FALL SCREENING: Has the patient had 2 falls in the last year or 1 fall with injury or currently using an Ambulatory Assistive Device (Walker, Cane, Wheelchair, Crutches, etc.)? No PATIENT GENDER DATA: Assigned female at . status: : No status: NO. ALLERGIES: Reviewed and unchanged CONTRAST ALLERGY: No EXAM: MRI - CONTRAST TYPE: GROUP II IV SITE: Ambulatory: A power injectable PICC was accessed in the Left side. Blood Return, Flushed easily with normal saline, Good Blood Return Post Injection, and No Complications and A Saline lock was inserted per protocol IV SITE APPEARANCE: Clean,Dry and Intact SIGNATURE: Precious Mejia RN PATIENT NAME: Ike Flannery DATE: September 07, 2024 TIME: 8:18 AM Radiology Service Progress Note PATIENT NAME: Ike Flannery DATE OF SERVICE: September 07, 2024 TIME: 8:35 AM PATIENT IDENTITY VERIFICATION COMPLETED USING TWO (2) IDENTIFIERS: Name and Date of confirmed by patient verbally. FALL SCREENING: Has the patient had 2 falls in the last year or 1 fall with injury or currently using an Ambulatory Assistive Device (Walker, Cane, Wheelchair, Crutches, etc.)? No PATIENT GENDER DATA: Assigned female at . status: : No status: NO. PATIENT RELEVANT IMPLANT DATA REVIEWED: Yes PATIENT PRESENTS WITH AN IMPLANTABLE OR ATTACHED HAND THERMAL CUTTER: No RADIOLOGY DEPARTMENT: MR; Exam(s) Completed: Head: Localization. Aromatherapy Administered: No PERIPHERAL IV DATA: Site assessment: Clean,Dry and Intact, Site disposition Left in for next appointment PICC SIGNED BY: RT Dagoberto(R) September 07, 2024 8:35 AM documented in this encounter [facility] 09-07-2024 Note HNO ID: [id number] Author: SHEREEN HOPSON RT(R) Service: Radiology Author Type: French Polisher Type: Progress Notes Filed: 09/07/2024 08:36 Note Text: Radiology Service Progress Note PATIENT NAME: Ike Flannery DATE OF SERVICE: September 07, 2024 TIME: 8:35 AM PATIENT IDENTITY VERIFICATION COMPLETED USING TWO (2) IDENTIFIERS: Name and Date of confirmed by patient verbally. FALL SCREENING: Has the patient had 2 falls in the last year or 1 fall with injury or currently using an Ambulatory Assistive Device (Walker, Cane, Wheelchair, Crutches, etc.)? No PATIENT GENDER DATA: Assigned female at . status: : No status: NO. PATIENT RELEVANT IMPLANT DATA REVIEWED: Yes PATIENT PRESENTS WITH AN IMPLANTABLE OR ATTACHED HAND THERMAL CUTTER: No RADIOLOGY DEPARTMENT: MR; Exam(s) Completed: Head: Localization. Aromatherapy Administered: No PERIPHERAL IV DATA: Site assessment: Clean,Dry and Intact, Site disposition Left in for next appointment PICC SIGNED BY: RT Dagoberto(R) September 07, 2024 8:35 AM [facility] 09-07-2024 Note HNO ID: [id number] Author: PRECIOUS MEJIA RN Service: Nursing Author Type: Registered Nurse Type: Progress Notes Filed: 09/07/2024 08:20 Note Text: Radiology Service Progress Note DATE OF SERVICE: September 07, 2024 TIME: 8:18 AM PATIENT WEIGHT: 194 LBS PATIENT IDENTITY VERIFICATION COMPLETED USING TWO (2) STANDARD IDENTIFIERS: Name and Date of confirmed by patient verbally. FALL SCREENING: Has the patient had 2 falls in the last year or 1 fall with injury or currently using an Ambulatory Assistive Device (Walker, Cane, Wheelchair, Crutches, etc.)? No PATIENT GENDER DATA: Assigned female at . status: : No status: NO. ALLERGIES: Reviewed and unchanged CONTRAST ALLERGY: No EXAM: MRI - CONTRAST TYPE: GROUP II IV SITE: Ambulatory: A power injectable PICC was accessed in the Left side. Blood Return, Flushed easily with normal saline, Good Blood Return Post Injection, and No Complications and A Saline lock was inserted per protocol IV SITE APPEARANCE: Clean,Dry and Intact SIGNATURE: Precious Mejia RN PATIENT NAME: Ike Flannery DATE: September 07, 2024 TIME: 8:18 AM [facility] 09-07-2024 Note HNO ID: [id number] Author: ALEXANDER BROWNING RN Service: ? Author Type: Registered Nurse Type: Progress Notes Filed: 09/07/2024 14:26 Note Text: September 07, [id number] Ike arrived ambulatory with: self. Transportation home verified: yes, with [employer], who will be picking her up today. Ike here for today for imaging, mask fitting, pre-planning for Icon mask based Gamma Knife Stereotactic Radiosurgery by radiation therapist, and single session mask based treatment. ID verified with patient with two identifiers, name and birthdate. Alexander Browning RN Ike assessed for the following: Does Ike have any pain? No. Pain 0 on scale of 0-10 Does Ike have: Difficulty chewing and/or swallowing: no Fall risk assessment: Not at risk for falls Concerns about physical or emotional abuse: no Allergies reviewed with patient, yes. [id number] Mask completed. To imaging for CT Scan and MRI. Ike Flannery returned to department for treatment # 1 of 1. Is patient on immunotherapy? No. Patient's Age: 53 Menstruation Status: Hysterectomy 1100 Decadron 4 mg po given prior to Gamma Knife SRS per order of Dr. Adán MD. 1101 Xanax 0.5 mg PO given per order of Dr. Adán MD, Alexander Browning RN. 1127 Patient assisted to treatment room. Gamma Knife SRS begun. 1247 Gamma Knife Stereotactic Radiosurgery Completed. 1300 Discharge instructions given to patient. Instructions reviewed by this nurse and patient verbalized an understanding. Pt then discharged. Alexander Browning RN [facility] 09-07-2024 History of Present illness Narrative September 07, [id number] Ike arrived ambulatory with: self. Transportation home verified: yes, with [employer], who will be picking her up today. Ike here for today for imaging, mask fitting, pre-planning for Icon mask based Gamma Knife Stereotactic Radiosurgery by radiation therapist, and single session mask based treatment. ID verified with patient with two identifiers, name and birthdate. Alexander Browning RN Ike assessed for the following: Does Ike have any pain? No. Pain 0 on scale of 0-10 Does Ike have: Difficulty chewing and/or swallowing: no Fall risk assessment: Not at risk for falls Concerns about physical or emotional abuse: no Allergies reviewed with patient, yes. [id number] Mask completed. To imaging for CT Scan and MRI. Ike Flannery returned to department for treatment # 1 of 1. Is patient on immunotherapy? No. Patient's Age: 53 Menstruation Status: Hysterectomy 1100 Decadron 4 mg po given prior to Gamma Knife SRS per order of Dr. Adán MD. 1101 Xanax 0.5 mg PO given per order of Dr. Adán MD, Alexander Browning RN. 1127 Patient assisted to treatment room. Gamma Knife SRS begun. 1247 Gamma Knife Stereotactic Radiosurgery Completed. 1300 Discharge instructions given to patient. Instructions reviewed by this nurse and patient verbalized an understanding. Pt then discharged. Alexander Browning RN documented in this encounter [facility] 09-07-2024 History of Present illness Narrative IKE FLANNERY [id number] 09/07/2024 [facility] GAMMA KNIFE STEREOTACTIC RADIOSURGERY (SRS) DAILY PROCEDURE NOTE FRACTION NUMBER: 1 of 1 (multiple sites) CUMULATIVE DOSE: 24 Gy L F (Out of a planned 24 Gy) 24 Gy L Inf F (Out of a planned 24 Gy) 18 Gy Vermis (Out of a planned 18 Gy) DIAGNOSIS: Ike Flannery is a 53 year old female with breast cancer and a new diagnosis of brain metastases. PROCEDURE: Under my direct supervision the patient was set up on the treatment table and all treatment parameters were verified, including patient identity and treatment site. CBCT obtained which was co-registered using the treatment planning system. Adaptive replan was verified and approved. Once the beam was turned on, the patient position and target location were continuously monitored during delivery of the SRS using infrared tracking. At all points of decision-making with regard to patient setup, I conferred with the medical receptionist biller to approve the final setup. I was available throughout the SRS treatment to manage the execution of the treatment and make real-time adjustments in response to patient motion, target movement, or equipment issues to ensure accuracy and safety. The patient was evaluated by me after treatment and was discharged in stable condition. TREATMENT VOLUMES: GTV (Defined by neurosurgeon) PHYSICIST NAME: Alexis Forbes, PhD INTERVENTIONS: None ASSESSMENT/PLAN: Patient tolerated procedure well. We will continue as planned. Electronically Signed QUYNH MELO M.D. 51:00 PM documented in this encounter [facility] 09-07-2024 History of Present illness Narrative IKE FLANNERY [id number] 09/07/2024 [facility] Department of Radiation Oncology [facility] RADIATION ONCOLOGY GAMMA KNIFE SIMULATION NOTE DATE OF SIMULATION: 09/07/2024 MACHINE: Gamma Knife DIAGNOSIS: Ike Flannery is a 53 year old female with breast cancer and a new diagnosis of brain metastases. AREA:Brain PATIENT POSITION: Supine CONTRAST: None PROTOCOL: None FIXATION DEVICE: In order to achieve accurate and reproducible treatments, the patient is immobilized with custom 3-point mask and mold care. PROCEDURE: A time-out was conducted and recorded by the therapist. Patient was simulated on the Gamma Knife for SRS therapy. ASSESSMENT/PLAN: Patient tolerated simulation procedure well. Treatments will be initiated after treatment planning. documented in this encounter [facility] 09-07-2024 History of Present illness Narrative LAKIA FLANNERYBETH [id number] 09/07/2024 [facility] Department of Radiation Oncology [facility] RADIATION ONCOLOGY: COMPLETION NOTE DATE OF TREATMENT: September 07, 2024 UNIT: Gamma Knife AREA TREATED: 1) l f 2) l inf f 3) vermis DISEASE: 53 year old female with breast cancer and a new diagnosis of brain metastases. DELIVERED DOSE: 1. 2400.0 cGy was prescribed to the 85% isodose line, which covered 100% of the target. The plan utilized 1 shot using 8 mm sector. GTV volume = 0.16 cm3. Maximum dose = 2820.0 cGy. Maximum diameter = 0.7 cm. MD/PD = 1.175. PIV/CTV = 1.375. Gradient Index = 3.4. Number of Fractions = 1. 2. 2400.0 cGy was prescribed to the 93% isodose line, which covered 100% of the target. The plan utilized 1 shot using 8 mm sector. GTV volume = 0.082 cm3. Maximum dose = 2580.0 cGy. Maximum diameter = 0.67 cm. MD/PD = 1.075. PIV/CTV = 1.585. Gradient Index = 5.3. Number of Fractions = 1. 3. 1800.0 cGy was prescribed to the 56% isodose line, which covered 100% of the target. The plan utilized 29 shots using composite sector. GTV volume = 4.97 cm3. Maximum dose = 3210.0 cGy. Maximum diameter = 2.3 cm. MD/PD = 1.783. PIV/CTV = 1.167. Gradient Index = 2.9. Number of Fractions = 1. 3 separate treatment plans were devised. ELAPSED TREATMENT TIME: 80 minutes (one session). TIME IN 11:27 / TIME OUT 12:47 TOLERANCE: Excellent. RESPONSE: To be evaluated. REMARKS: The patient will return in 1 mo for second stage SRS. Authorized user was present during the entire treatment. The total treatment time was within 10% of the written directive. Staff Physician Quynh Melo M.D./ :24 PM Electronically Signed cc: Kaye Manuel CNP [address] [place] [address] Patient Care Team: Kaye Manuel CNP as PCP - General (Family Medicine) Nilda, ROBER Figueroa Apoorva, MD as Referring (Hematology/Oncology) Shereen Smallwood PA-C as Referring (Orthopedics) Saman Joe RN as Specialty Industrial Controller (Hematology/Oncology) documented in this encounter [facility] 09-07-2024 Note HNO ID: [id number] Author: SAM MELO MD Service: Radiation Oncology Author Type: Physician Type: Progress Notes Filed: 09/07/2024 13:00 Note Text: IKE FLANNERY [id number] 09/07/2024 [facility] GAMMA KNIFE STEREOTACTIC RADIOSURGERY (SRS) DAILY PROCEDURE NOTE FRACTION NUMBER: 1 of 1 (multiple sites) CUMULATIVE DOSE: 24 Gy L F (Out of a planned 24 Gy) 24 Gy L Inf F (Out of a planned 24 Gy) 18 Gy Vermis (Out of a planned 18 Gy) DIAGNOSIS: Ike Flannery is a 53 year old female with breast cancer and a new diagnosis of brain metastases. PROCEDURE: Under my direct supervision the patient was set up on the treatment table and all treatment parameters were verified, including patient identity and treatment site. CBCT obtained which was co-registered using the treatment planning system. Adaptive replan was verified and approved. Once the beam was turned on, the patient position and target location were continuously monitored during delivery of the SRS using infrared tracking. At all points of decision-making with regard to patient setup, I conferred with the medical receptionist biller to approve the final setup. I was available throughout the SRS treatment to manage the execution of the treatment and make real-time adjustments in response to patient motion, target movement, or equipment issues to ensure accuracy and safety. The patient was evaluated by me after treatment and was discharged in stable condition. TREATMENT VOLUMES: GTV (Defined by neurosurgeon) PHYSICIST NAME: Alexis Forbes, PhD INTERVENTIONS: None ASSESSMENT/PLAN: Patient tolerated procedure well. We will continue as planned. Electronically Signed QUYNH MELO M.D. 51:00 PM [facility] 09-07-2024 Note HNO ID: [id number] Author: SAM MELO MD Service: Radiation Oncology Author Type: Physician Type: Progress Notes Filed: 09/07/2024 20:24 Note Text: IKE FLANNERY [id number] 09/07/2024 [facility] Department of Radiation Oncology [facility] RADIATION ONCOLOGY: COMPLETION NOTE DATE OF TREATMENT: September 07, 2024 UNIT: Gamma Knife AREA TREATED: 1) l f 2) l inf f 3) vermis DISEASE: 53 year old female with breast cancer and a new diagnosis of brain metastases. DELIVERED DOSE: 1. 2400.0 cGy was prescribed to the 85% isodose line, which covered 100% of the target. The plan utilized 1 shot using 8 mm sector. GTV volume = 0.16 cm3. Maximum dose = 2820.0 cGy. Maximum diameter = 0.7 cm. MD/PD = 1.175. PIV/CTV = 1.375. Gradient Index = 3.4. Number of Fractions = 1. 2. 2400.0 cGy was prescribed to the 93% isodose line, which covered 100% of the target. The plan utilized 1 shot using 8 mm sector. GTV volume = 0.082 cm3. Maximum dose = 2580.0 cGy. Maximum diameter = 0.67 cm. MD/PD = 1.075. PIV/CTV = 1.585. Gradient Index = 5.3. Number of Fractions = 1. 3. 1800.0 cGy was prescribed to the 56% isodose line, which covered 100% of the target. The plan utilized 29 shots using composite sector. GTV volume = 4.97 cm3. Maximum dose = 3210.0 cGy. Maximum diameter = 2.3 cm. MD/PD = 1.783. PIV/CTV = 1.167. Gradient Index = 2.9. Number of Fractions = 1. 3 separate treatment plans were devised. ELAPSED TREATMENT TIME: 80 minutes (one session). TIME IN 11:27 / TIME OUT 12:47 TOLERANCE: Excellent. RESPONSE: To be evaluated. REMARKS: The patient will return in 1 mo for second stage SRS. Authorized user was present during the entire treatment. The total treatment time was within 10% of the written directive. Staff Physician Quynh Melo M.D./ 7/09/93863:24 PM Electronically Signed cc: Kaye Manuel CNP [address] [place] [address] Patient Care Team: Kaye Manuel CNP as PCP - General (Family Medicine) Gino Flower APRN Chawla, Apoorva, MD as Referring (Hematology/Oncology) Shereen Smallwood PA-C as Referring (Orthopedics) Saman Joe RN as Specialty Industrial Controller (Hematology/Oncology) [facility] 09-07-2024 Note HNO ID: [id number] Author: SAM MELO MD Service: Radiation Oncology Author Type: Physician Type: Progress Notes Filed: 09/07/2024 10:53 Note Text: IKE FLANNERY [id number] 09/07/2024 [facility] Department of Radiation Oncology [facility] RADIATION ONCOLOGY GAMMA KNIFE SIMULATION NOTE DATE OF SIMULATION: 09/07/2024 MACHINE: Gamma Knife DIAGNOSIS: Ike Flannery is a 53 year old female with breast cancer and a new diagnosis of brain metastases. AREA:Brain PATIENT POSITION: Supine CONTRAST: None PROTOCOL: None FIXATION DEVICE: In order to achieve accurate and reproducible treatments, the patient is immobilized with custom 3-point mask and mold care. PROCEDURE: A time-out was conducted and recorded by the therapist. Patient was simulated on the Gamma Knife for SRS therapy. ASSESSMENT/PLAN: Patient tolerated simulation procedure well. Treatments will be initiated after treatment planning. Electronically Signed Quynh Melo M.D. 0:53 AM [facility] 09-05-2024 Miscellaneous Notes Pt calling into the office for wound check appointment. Ok to schedule pt per Shereen DUFFY. Pt scheduled for 09/08/2024. - Dee Dee Buck RN 09/05/24 3:13 PM documented in this encounter [facility] [employer] [facility] 09-05-2024 Telephone encounter Note Pt calling into the office for wound check appointment. Ok to schedule pt per Shereen DUFFY. Pt scheduled for 09/08/2024. - Dee Dee Buck RN 09/05/24 3:13 PM [facility] 09-05-2024 Note HNO ID: [id number] Author: MARISELA CISNEROS MD Service: ? Author Type: Physician Type: Progress Notes Filed: 09/05/2024 14:49 Note Text: [facility] VISIT I have communicated my name and active licensure. The patient?s identity and physical location were verified at the time of this visit. Ike Flannery or their legal registration representative has been informed of the risks and benefits of -- and alternatives to -- treatment through a remote evaluation and consents to proceed with the evaluation remotely. This visit is a MyChart Zoom encounter which required patient-provider interaction for the medical decision making as documented below. HISTORY REVIEWED (electronic chart updated): Patient with a history of cancer presents for follow-up regarding recent brain MRI findings and upcoming Gamma Knife procedure. She is clinically well and is currently shopping at a mall preparing for an upcoming trip. Recent brain MRI revealed multiple lesions, including a small lesion on the left vestibulocochlear nerve. A larger lesion measured at 2 cm. Patient is scheduled for a Gamma Knife procedure to address these lesions. She reports understanding the potential side effects, including fatigue and headaches, and is aware of the need for a tapering steroid regimen post-procedure to manage potential swelling. Patient also mentions having a surgical drain in place from a recent surgery, with minimal output, and is attempting to schedule removal with her plastic surgeon before her upcoming travel to [place] for a family wedding. Data Reviewed: 08/31/24 BRAIN mri: RESULT: MRI BRAIN: Acute abnormality: Posterior fossa [...] sulci, gyri, ventricles, CSF spaces, brain, bones AND skull base without any additional enhancing lesions. No additional mass effect or collections. REVIEW OF SYSTEMS: see HPI VIDEO PHYSICAL EXAMINATION: (if done, performed via video enabled technology) GENERAL: alert and appropriate, in no distress, well-hydrated, well nourished, and happy, smiling, interactive SKIN: no rash noted HEAD: normocephalic, no abnormality or lesion noted EYES: visual acuity is grossly normal EARS: hearing grossly normal NOSE: external nose normal without rhinorrhea OROPHARYNX: moist mucus membranes NECK: full ROM, no cervical LNs noted RESPIRATORY: breathing non-labored CHEST: equal chest rise with normal respiratory effort EXTREMITIES: moving bilateral upper extremities well Neuro: Speech fluent. CN II-XII intact. strength seems intact as she is walking through a mall. ASSESSMENT AND PLAN: In summary, Ike Flannery is a 53 year old female with breast cancer and a new diagnosis of brain metastases. 1. 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 Discussed with Dr. Mccain, neurosurgeon, and determined that Gamma Knife radiosurgery is appropriate to prevent further growth and complications. - Scheduled for Gamma Knife procedure on Thursday. Patient will be managed by Dr. Mccain and a trusted colleague in my absence. - Administer corticosteroids pre-procedure to minimize acute cerebral edema. - Prescribe a tapering course of corticosteroids post-procedure to manage potential delayed edema. - Educated patient on potential side effects, including fatigue and headache immediately post-procedure, and late-onset cerebral edema - Advised patient on thromboprophylaxis measures during travel to [place] post-procedure, including regular ambulation every 1-2 hours during car travel. - Scheduled follow-up MRIs to monitor for treatment-related edema and tumor response. - Discussed the possibility of a staged procedure for the lesion measuring 2 cm, contingent on mri findings. I discussed the differential of the enhancement along her left IAC (more content not included)... [facility] 09-05-2024 History of Present illness Narrative [facility] VISIT I have communicated my name and active licensure. The patient s identity and physical location were verified at the time of this visit. Ike Flannery or their legal registration representative has been informed of the risks and benefits of -- and alternatives to -- treatment through a remote evaluation and consents to proceed with the evaluation remotely. This visit is a MyChart Zoom encounter which required patient-provider interaction for the medical decision making as documented below. HISTORY REVIEWED (electronic chart updated): Patient with a history of cancer presents for follow-up regarding recent brain MRI findings and upcoming Gamma Knife procedure. She is clinically well and is currently shopping at a mall preparing for an upcoming trip. Recent brain MRI revealed multiple lesions, including a small lesion on the left vestibulocochlear nerve. A larger lesion measured at 2 cm. Patient is scheduled for a Gamma Knife procedure to address these lesions. She reports understanding the potential side effects, including fatigue and headaches, and is aware of the need for a tapering steroid regimen post-procedure to manage potential swelling. Patient also mentions having a surgical drain in place from a recent surgery, with minimal output, and is attempting to schedule removal with her plastic surgeon before her upcoming travel to [place] for a family wedding. Data Reviewed: 08/31/24 BRAIN mri: RESULT: MRI BRAIN: Acute abnormality: Posterior fossa [...] lesions. No additional mass effect or collections. REVIEW OF SYSTEMS: see HPI VIDEO PHYSICAL EXAMINATION: (if done, performed via video enabled technology) GENERAL: alert and appropriate, in no distress, well-hydrated, well nourished, and happy, smiling, interactive SKIN: no rash noted HEAD: normocephalic, no abnormality or lesion noted EYES: visual acuity is grossly normal EARS: hearing grossly normal NOSE: external nose normal without rhinorrhea OROPHARYNX: moist mucus membranes NECK: full ROM, no cervical LNs noted RESPIRATORY: breathing non-labored CHEST: equal chest rise with normal respiratory effort EXTREMITIES: moving bilateral upper extremities well Neuro: Speech fluent. CN II-XII intact. strength seems intact as she is walking through a mall. ASSESSMENT AND PLAN: In summary, Ike Flannery is a 53 year old female with breast cancer and a new diagnosis of brain metastases. 1. 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 Discussed with Dr. Mccain, neurosurgeon, and determined that Gamma Knife radiosurgery is appropriate to prevent further growth and complications. - Scheduled for Gamma Knife procedure on Thursday. Patient will be managed by Dr. Mccain and a trusted colleague in my absence. - Administer corticosteroids pre-procedure to minimize acute cerebral edema. - Prescribe a tapering course of corticosteroids post-procedure to manage potential delayed edema. - Educated patient on potential side effects, including fatigue and headache immediately post-procedure, and late-onset cerebral edema - Advised patient on thromboprophylaxis measures during travel to [place] post-procedure, including regular ambulation every 1-2 hours during car travel. - Scheduled follow-up MRIs to monitor for treatment-related edema and tumor response. - Discussed the possibility of a staged procedure for the lesion measuring 2 cm, contingent on mri findings. I discussed the differential of the enhancement along her left IAC and the plan to follow that. Ike Flannery s appropriate for consideration of GKRS. I discussed the risks, benefits, alternatives, personnel, and photography involved with gamma knife radiosurgery with Ike Flannery who understands and agrees to proceed. Head frame or mask will be used. Radiosurgery will be done in a single fraction using the Gamma Knife system, which uses up to 192 beams of radiation. A head CT and brain MRI will be performed the day of the procedure. The images will be co registered for target contouring and treatment planning. The CT scan is necessary to correct for the spatial distortion of the MRI. Both scans will be evaluated by a radiologist and the results will be discussed with the patient. Marisela Cisneros MD cc: Kaye Manuel CNP [address] [place] [address] No referring provider defined for this encounter. Patient Care Team: Kaye Manuel CNP as PCP - General (Family Medicine) Gino Flower APRN Chawla, Apoorva, MD as Referring (Hematology/Oncology) Shereen Smallwood PA-C as Referring (Orthopedics) Saman Joe RN as Specialty Industrial Controller (Hematology/Oncology) documented in this encounter [facility] 09-01-2024 Note HNO ID: [id number] Author: CLAIRE STRATTON RN Service: Care Management Author Type: Registered Nurse Type: Care Mgt Progress Note Filed: 09/01/2024 13:38 Note Text: CARE MANAGEMENT DISCHARGE NOTE SERVICE DATE: September 01, 2024 SERVICE TIME: 1:36 PM Admission Date: 08/26/2024 LOS: 6 days Discharge Arrangement Discharge Arrangement: Home with Self Care Caregiver Assessment Caregiver is ready, willing and able to meet the patient's needs as recommended by the inter-professional team: Yes Name of Caregiver: Spouse Transportation Arrangements Transportation Arrangements: Car Destination: Home Handoff Communication: Handoff to: Primary Care Physician Primary Care Physician Name/Phone: Kaye Manuel CNP [phone] Discharge Information Row Name Admission (Current) from 08/26/2024 in [facility] Agency [facility], an [facility] [place] [facility] [place], [place] Phone/Fax and F: [phone] Patient has been on two IV abx at home thru PICC since December [address] Herman Lui with [facility] ph: [phone]. Patient and spouse independent with dressing changes. Patient gets lab draws at [facility] ph: [phone] Active with [facility] ph: [phone] and f: [phone]. Per [facility], since [facility] is not following for homegoing IV abx and the order is written by an outside provider they will not require a new order. Patient set to resume services on discharge. Discharge paperwork sent to agency. Spouse to transport. Ready for discharge from . SIGNATURE: Claire Stratton RN PATIENT NAME: Ike Flannery DATE: September 01, 2024 TIME: 1:36 PM [facility] 08-31-2024 Note HNO ID: [id number] Author: KAYLEIGH SINGH MD Service: Neurosurgery Author Type: Resident Type: Plan of Care Filed: 08/31/2024 18:46 Note Text: Neurosurgery Plan of Care Note MRI obtained, demonstrating [address] Mccain from Neuro-Oncology. Dr. Cisneros tentatively staffing from Radiation Oncology Team. Neurology primary team will follow for tentative GKRS next Thursday. Plan: - Dr. Lauren and Neurology team following for GKRS next Thursday - Steroids per neuro oncology - NSGY to sign off Discussed with chief and staff, Dr. Christie. 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 She has no cranial nerve deficits. She presented with slurred speech which resolved on steroids. I spoke with Dr Cisneros in Radiation Oncology and her attending Oncologist on service Dr Cortez. We will review at Tumor Board tomorrow night but the tentative plan will be mask based Gamma Knife next Wed. If the larger vermian met is greater than 2 cm with planning then she will require 2 stage treatment 1 month apart for that lesion. She is on decadron 4mg bid and and I would recommend decreasing to 4mg a day and see how she does and could always go back up if the speech worsened. Josue Mccain DO, PhD [facility] 08-31-2024 Miscellaneous Notes Spoke with microbiology Culture was positive for AFB documented in this encounter [facility] 08-31-2024 Telephone encounter Note Spoke with microbiology Culture was positive for AFB [facility] 08-31-2024 Note HNO ID: [id number] Author: CLAIRE STRATTON, OC Service: Care Management Author Type: Registered Nurse Type: Care Mgt Progress Note Filed: 08/31/2024 11:13 Note Text: CARE MANAGEMENT PROGRESS NOTE SERVICE DATE: 08/31/2024 SERVICE TIME: 11:11 AM LOS: 5 days POSSIBLE HOLIDAY/WEEKEND DISCHARGE 6 clicks 24, currently on RA. Patient has been on two IV abx at home thru PICC since December [address] Herman Lui with [facility] ph: [phone]. Patient and spouse independent with dressing changes. Patient gets lab draws at [facility] ph: [phone] Active with [facility] ph: [phone] and f: [phone]. Per [facility], since [facility] is not following for homegoing IV abx and the order is written by an outside provider they will not require a new order. Patient set to resume services on discharge. CM to update [facility] on discharge plans. Spouse to transport on discharge. CM will continue to follow. Please see Treatment Team for Care Management Weekend/Holiday coverage. SIGNATURE: Claire Stratton RN PATIENT NAME: Ike Flannery DATE: August 31, 2024 TIME: 11:11 AM [facility] 08-31-2024 Note HNO ID: [id number] Author: EV CORTEZ DO Service: Hematology/Oncology Author Type: Physician Type: Progress Notes Filed: 08/31/2024 15:51 Note Text: SOLID TUMOR SERVICE PROGRESS NOTE Overnight: From 5P - 7A, [place] [phone]. Subjective INTERVAL HPI: JAVIER COREA. Overnight, she had some difficulty sleeping and given oxy, which seemed to help. MRI done this morning. Pt was very distraught during my visit this morning, but recovered and allowed me to do an exam. REVIEW OF SYSTEMS Review of Systems Positives listed in bold, most pertinent positives in HPI, otherwise negative General: (-) fever, chills, sweats, fatigue (since starting Xeloda), weight gain, weight loss, malaise Neurological: (-) sensory changes, headache, slurred speech not evident, no RLE weakness, dizziness, frequent falls Eyes: (-) vision loss, vision changes Nose: (-) bleeding, congestion Cardiac: (-) chest pain, palpitations, syncope, JOSE Respiratory: (-) shortness of breath, cough, hemoptysis Gastrointestinal: (-) constipation, diarrhea, nausea, vomiting, abdominal pain, hematochezia, melena Extremities: (-) swelling, cramping, weakness Skin: (-) rash, chronic infection as per HPI on L breast tissue Heme: (-) easy bruising, heavy bleeding Objective Vitals: Temp (24hrs), Av.7 ?C (98 ?F), Min:36.4 ?C (97.5 ?F), Max:36.8 ?C (98.2 ?F) BP 147/105 Pulse 65 Temp 36.3 ?C (97.3 ?F) (Oral) Resp 16 Ht 177.8 cm (5' 10 ) Wt 88 kg (194 lb 0.1 oz) SpO2 100% BMI 27.84 kg/m? Intake AND Output Intake/Output Summary (Last 24 hours) at 08/31/2024 0824 Last data filed at 08/30/2024 1430 Gross per 24 hour Intake 700 ml Output 0 ml Net 700 ml Eastern Cooperative Oncology Group (ECOG): 0: Fully active, able to carry on all pre-disease performance without restriction PHYSICAL EXAM General: The patient is alert and oriented x3, in no apparent distress. HEENT: PERRLA, EOMI, normocephalic. Vision intact. Neck supple. Lungs: Normal work of breathing. Lungs CTA bilaterally. Heart: normal rate, regular rhythm, normal S1 and S2, no murmurs, rubs, or gallops. Abdomen: soft, non-distended, non-tender, small ecchymosis c/w prior anticoagulation injection. Extremities: Warm and well perfused. Radial pulses 2+ bilaterally. Skin: Warm, dry. Chronic wound of left breast with clean pink base; right breast wound clean w/ healthy granulation tissue at base Neurologic: AOx3. CN: II and XII intact. Strength 5/5 proximally and distally in all 4 extremities and hands/feet. Sensation intact bilaterally. Esl Instructional Assistant strength equal and strong bilaterally. No dysmetria. No notable dysarthria on exam. No evident difficulty writing and using hand to write. MEDICATIONS Current Facility-Administered Medications Medication Dose Route Frequency iv contrast (radiology procedure) INTRAVENOUS DIRECTED PRN omadacycline tab 300 mg (NUZYRA) 300 mg ORAL DAILY clofazimine 100 mg cap(s) (LAMPRENE) 100 mg ORAL DAILY acyclovir 400 mg tab(s) (ZOVIRAX) 400 mg ORAL BID amikacin 900 mg in D5W 50 mL 900 mg INTRAVENOUS MO-WE-FR famotidine 40 mg tab(s) (PEPCID) 40 mg ORAL DAILY potassium-sodium phosphates 1 packet (PHOS-NAK) 1 packet ORAL PC and HS acetaminophen 650 mg tab(s) (TYLENOL) 650 mg ORAL/FEEDING TUBE q 6 H PRN dexAMETHasone 4 mg tab(s) (DECADRON) 4 mg ORAL BID 9a/3p LORazepam 1 mg tab(s) (ATIVAN) 1 mg ORAL/FEEDING TUBE DAILY PRN capecitabine 1,500 mg tab(s) (XELODA) 1,500 mg ORAL BID NaCl 0.9% iv flush bag 20 mL INTRAVENOUS PRN carvedilol 12.5 mg tab(s) (COREG) 12.5 mg ORAL BID w MEALS gabapentin 300 mg cap(s) (NEURONTIN) 300 mg ORAL BID hydrOXYzine HCl 25 mg tab(s) (ATARAX) 25 mg ORAL q 4 H PRN spironolactone 12.5 mg tab(s) (ALDACTONE) 12.5 mg ORAL DAILY imipenem-cilastatin 1 g in NaCl 0.9% 250 mL (PRIMAXIN) 1 g INTRAVENOUS q 12 HR LABORATORY DATA Recent Labs 08/31/24 0421 08/30/24 0346 08/29/24 0300 WBC 8.37 9.36 9.86 RBC 2.85* 2.87* 2.85* HB 9.3* 9.4* 9.1* HCT 27.6* 27.7* 27.1* PLT 209 242 242 MCV 96.8 96.5 95.1 MCH 32.6 32.8 31.9 MCHC 33.7 33.9 33.6 RDWCV 19.5* 19.4* 19.1* MPV 9.3 9.6 9.2 NEUTP 78.7 83.7 85.6 ABSNEUT 6.59 7.83* 8.44* LYMPHP 14.5 11.6 9.1 MONOP 5.9 3.4 4.4 EODINP 0.0 0.0 0.0 BASOP 0.1 0.1 0.1 ABSMONO 0.49 0.32 0.43 ABSEOSIN <0.03 <0.03 <0.03 ABSBASO <0.03 <0.03 <0.03 Recent Labs 08/31/24 0421 08/30/24 0346 08/29/24 0300 NA 140 143 143 K 3.8 4.0 3.8 CHLOR 106 108* 109* CO2 24 23 21* CREAT 1.10* 1.06* 1.09* BUN 19 19 18 GLUC 102* 113* 104* P 2.9 3.1 3.8 TPROT 5.7* 6.1* 5.9* ALB 3.7* 4.0 3.9 MG 2.1 2.0 2.0 CA 9.1 9.7 9.2 ALKPHOS 77 82 86 TBILI 0.4 0.5 0.5 AST 79* 62* 51* ALT 95* 86* 72* Lines, Drains, and Airways Line Duration Central Line Double Lumen 05/02/24 1206 Peripherally Inserted (PICC) Left Arm 5.0 Wallisian 120 days Drain Duration Drain/Tube 08/30/24 1253 [facility] (more content not included)... [facility] 08-30-2024 Note HNO ID: [id number] Author: EV CORTEZ DO Service: Hematology/Oncology Author Type: Physician Type: Progress Notes Filed: 08/30/2024 21:38 Note Text: SOLID TUMOR SERVICE PROGRESS NOTE Overnight: From 5P - 7A, [place] [phone]. Subjective INTERVAL HPI: NAEO, HDS. She is feeling well today. She had her tissue putty mixer removed today, and safety screen completed. Overnight, she was switched from PPI to famotidine d/t drug-drug interactions. REVIEW OF SYSTEMS Review of Systems Positives listed in bold, most pertinent positives in HPI, otherwise negative General: (+/-) fever, chills, sweats, fatigue (since starting Xeloda), weight gain, weight loss, malaise Neurological: (+/-) sensory changes, headache, focal weakness (RLE), slurred speech, dizziness, frequent falls Eyes: (+/-) vision loss, vision changes Nose: (+/-) bleeding, congestion Cardiac: (+/-) chest pain, palpitations, syncope, JOSE Respiratory: (+/-) shortness of breath, cough, hemoptysis Gastrointestinal: (+/-) constipation, diarrhea, nausea, vomiting, abdominal pain, hematochezia, melena Extremities: (+/-) swelling, cramping, weakness Skin: (+/-) rash, chronic infection as per HPI Heme: (+/-) easy bruising, heavy bleeding Objective Vitals: Temp (24hrs), Av.7 ?C (98 ?F), Min:36.4 ?C (97.5 ?F), Max:36.8 ?C (98.2 ?F) BP 148/96 Pulse 68 Temp 36.3 ?C (97.3 ?F) (Oral) Resp 18 Ht 177.8 cm (5' 10 ) Wt 88 kg (194 lb 0.1 oz) SpO2 100% BMI 27.84 kg/m? Intake AND Output Intake/Output Summary (Last 24 hours) at 08/30/2024 1743 Last data filed at 08/30/2024 1430 Gross per 24 hour Intake 700 ml Output 0 ml Net 700 ml Eastern Cooperative Oncology Group (ECOG): 0: Fully active, able to carry on all pre-disease performance without restriction PHYSICAL EXAM General: The patient is alert and oriented x3, in no apparent distress. HEENT: PERRLA, EOMI, normocephalic. Vision intact. Neck supple. Lungs: Normal work of breathing. Lungs CTA bilaterally. Heart: normal rate, regular rhythm, normal S1 and S2, no murmurs, rubs, or gallops. Abdomen: soft, non-distended, non-tender, small ecchymosis c/w prior anticoagulation injection. Extremities: Warm and well perfused. Radial and posterior tibial pulses 2+ bilaterally. Skin: Warm, dry. Chronic wound of left breast with clean pink base; right breast wound clean w/ healthy granulation tissue at base Neurologic: AOx3. CN: II-XII intact. Strength 5/5 proximally and distally in all 4 extremities and hands/feet. Sensation intact bilaterally. Esl Instructional Assistant strength equal and strong bilaterally. No dysmetria. Romberg negative. No gait abnormalities. Kwfdgi-mh-cclu and yfff-rt-vkop intact bilaterally. No notable dysarthria on exam. Perceived difficulty writing name however no perceived change in signature. MEDICATIONS Current Facility-Administered Medications Medication Dose Route Frequency iv contrast (radiology procedure) INTRAVENOUS DIRECTED PRN omadacycline tab 300 mg (NUZYRA) 300 mg ORAL DAILY clofazimine 100 mg cap(s) (LAMPRENE) 100 mg ORAL DAILY acyclovir 400 mg tab(s) (ZOVIRAX) 400 mg ORAL BID [START ON 08/31/2024] amikacin 900 mg in D5W 50 mL 900 mg INTRAVENOUS - famotidine 40 mg tab(s) (PEPCID) 40 mg ORAL DAILY potassium-sodium phosphates 1 packet (PHOS-NAK) 1 packet ORAL PC and HS acetaminophen 650 mg tab(s) (TYLENOL) 650 mg ORAL/FEEDING TUBE q 6 H PRN dexAMETHasone 4 mg tab(s) (DECADRON) 4 mg ORAL BID 9a/3p LORazepam 1 mg tab(s) (ATIVAN) 1 mg ORAL/FEEDING TUBE DAILY PRN capecitabine 1,500 mg tab(s) (XELODA) 1,500 mg ORAL BID NaCl 0.9% iv flush bag 20 mL INTRAVENOUS PRN carvedilol 12.5 mg tab(s) (COREG) 12.5 mg ORAL BID w MEALS gabapentin 300 mg cap(s) (NEURONTIN) 300 mg ORAL BID hydrOXYzine HCl 25 mg tab(s) (ATARAX) 25 mg ORAL q 4 H PRN spironolactone 12.5 mg tab(s) (ALDACTONE) 12.5 mg ORAL DAILY imipenem-cilastatin 1 g in NaCl 0.9% 250 mL (PRIMAXIN) 1 g INTRAVENOUS q 12 HR LABORATORY DATA Recent Labs 08/30/2434508/29/24 0300 08/28/24 0258 WBC 9.36 9.86 7.55 RBC 2.87* 2.85* 2.81* HB 9.4* 9.1* 9.1* HCT 27.7* 27.1* 26.6* PLT 242 242 222 MCV 96.5 95.1 94.7 MCH 32.8 31.9 32.4 MCHC 33.9 33.6 34.2 RDWCV 19.4* 19.1* 18.7* MPV 9.6 9.2 9.3 NEUTP 83.7 85.6 83.6 ABSNEUT 7.83* 8.44* 6.31 LYMPHP 11.6 9.1 9.8 MONOP 3.4 4.4 5.6 EODINP 0.0 0.0 0.0 BASOP 0.1 0.1 0.1 ABSMONO 0.32 0.43 0.42 ABSEOSIN <0.03 <0.03 <0.03 ABSBASO <0.03 <0.03 <0.03 Recent Labs 08/30/24 03408/29/24 0300 08/28/24 0258 NA 143 143 139 K 4.0 3.8 3.4* CHLOR 108* 109* 106 CO2 23 21* 22 CREAT 1.06* 1.09* 1.10* BUN 19 18 14 GLUC 113* 104* 144* P 3.1 3.8 2.4* TPROT 6.1* 5.9* 6.0* ALB 4.0 3.9 3.9 MG 2.0 2.0 2.0 CA 9.7 9.2 9.5 ALKPHOS 82 86 90 TBILI 0.5 0.5 0.5 AST 62* 51* 49* ALT 86* 72* 71* Lines, Drains, and Airways Line Duration Central Line Double Lumen 05/02/24 1206 Per (more content not included)... [facility] 08-30-2024 Note HNO ID: [id number] Author: DEENA VU DO Service: Plastic Surgery Author Type: Resident Type: Plan of Care Filed: 08/30/2024 14:56 Note Text: Plastic surgery plan of care: 53 year old female with with metastatic breast cancer and subpectoral right breast Sientra AlloX2 TE placed 10/28/2023, now requiring MRI for new brain lesion in setting of neuro deficits to direct oncologic treatment plans. She is s/p TE removal today. She tolerated procedure well. Right breast ARTEMIO x [address] Left breast wound clean with healthy granulation tissue at base. - No additional surgical intervention necessary at this time from PRS standpoint - PRS to monitor ARTEMIO output. - Recommend transition to wound vac on left breast as wound is cleans with healthy granulation tissue at base. Deena Vu DO Plastic AND Reconstructive Surgery Hand Surgery Resident Pager: [phone] After 6PM AND on weekends, please page [phone] (Plastic Surgery on-call) [facility] 08-30-2024 Note HNO ID: [id number] Author: SAM STUART MD Service: ? Author Type: Resident Type: Anesthesia Procedure Notes Filed: 08/30/2024 12:46 Note Text: ANESTHESIOLOGY PROCEDURE NOTE Airway General Information Procedure Start Time/Medication Administration: 08/30/2024 12:30 PM Procedure End Time: 08/30/2024 12:32 PM Patient location during procedure: OR Timeout Performed Pre-procedure: timeout performed Consent Obtained: Yes Patient identity confirmed: arm band Staffing Anesthesiologist: Negar Butler MD Resident: Sam Stuart MD Performed by: anesthesiologist and resident Indications and Patient Condition Indications for airway management: anesthesia Preoxygenated: yes anesthesia circuit Patient position: sniffing Final Airway Details Final airway type: endotracheal airway Final Endotracheal Airway: ETT Cuffed: yes Successful intubation technique: video laryngoscopy Devices used: Berry Endotracheal tube insertion site: oral Blade: Bo Blade size: #3 ETT size (mm): 7.0 Measured from: lips Measurement (cm): 22 Placement verified by: capnometry Cormack-Lehane Classification: grade I - full view of glottis Number of attempts at approach: 1 SIGNATURE: Sam Stuart MD PATIENT NAME: Ike Flannery DATE: August 30, 2024 TIME: 12:45 PM CSN: [id number] [facility] 08-30-2024 Note HNO ID: [id number] Author: CHRISTY DA SILVA MD Service: Infectious Disease Author Type: Physician Type: Plan of Care Filed: 08/30/2024 11:58 Note Text: INFECTIOUS DISEASE CONSULT SERVICE PLAN OF CARE Date: August 30, 2024 Patient Name: Ike Flannery INTERVAL HISTORY/24HOUR EVENTS: Afebrile, Tmax 36.4C. WBC stable 9.3 Started on dexamethasone 08/27 4mg BID LFTs remain elevated AST 62, ALT 86 Feeling well today. Active Antimicrobials (From admission, onward) Start Stop 08/31/24 0900 amikacin 900 mg in D5W 50 mL 900 mg, INTRAVENOUS, EVERY THU-THU-THU -- 08/29/24 2100 acyclovir 400 mg tab(s) (ZOVIRAX) 400 mg, ORAL, 2 TIMES DAILY -- 08/29/24 1800 clofazimine 100 mg cap(s) (LAMPRENE) 100 mg, ORAL, DAILY -- 08/29/24 1300 omadacycline tab 300 mg (NUZYRA) 300 mg, ORAL, DAILY -- 08/26/24 1500 imipenem-cilastatin 1 g in NaCl 0.9% 250 mL (PRIMAXIN) 1 g, INTRAVENOUS, EVERY 12 HOURS -- Current Facility-Administered Medications Medication Dose Route Frequency omadacycline tab 300 mg (NUZYRA) 300 mg ORAL DAILY clofazimine 100 mg cap(s) (LAMPRENE) 100 mg ORAL DAILY acyclovir 400 mg tab(s) (ZOVIRAX) 400 mg ORAL BID famotidine 40 mg tab(s) (PEPCID) 40 mg ORAL DAILY potassium-sodium phosphates 1 packet (PHOS-NAK) 1 packet ORAL PC and HS acetaminophen 650 mg tab(s) (TYLENOL) 650 mg ORAL/FEEDING TUBE q 6 H PRN dexAMETHasone 4 mg tab(s) (DECADRON) 4 mg ORAL BID 9a/3p LORazepam 1 mg tab(s) (ATIVAN) 1 mg ORAL/FEEDING TUBE DAILY PRN capecitabine 1,500 mg tab(s) (XELODA) 1,500 mg ORAL BID NaCl 0.9% iv flush bag 20 mL INTRAVENOUS PRN carvedilol 12.5 mg tab(s) (COREG) 12.5 mg ORAL BID w MEALS gabapentin 300 mg cap(s) (NEURONTIN) 300 mg ORAL BID hydrOXYzine HCl 25 mg tab(s) (ATARAX) 25 mg ORAL q 4 H PRN spironolactone 12.5 mg tab(s) (ALDACTONE) 12.5 mg ORAL DAILY imipenem-cilastatin 1 g in NaCl 0.9% 250 mL (PRIMAXIN) 1 g INTRAVENOUS q 12 HR LABS: Reviewed Recent Labs 08/30/24 0346 08/29/24 0300 08/28/24 0258 WBC 9.36 9.86 7.55 HB 9.4* 9.1* 9.1* HCT 27.7* 27.1* 26.6* PLT 242 242 222 NA 143 143 139 K 4.0 3.8 3.4* CHLOR 108* 109* 106 CO2 23 21* 22 CREAT 1.06* 1.09* 1.10* BUN 19 18 14 GLUC 113* 104* 144* P 3.1 3.8 2.4* TPROT 6.1* 5.9* 6.0* ALB 4.0 3.9 3.9 MG 2.0 2.0 2.0 CA 9.7 9.2 9.5 ALKPHOS 82 86 90 TBILI 0.5 0.5 0.5 AST 62* 51* 49* ALT 86* 72* 71* MICRO: Positive Micro-30 Days No results found for the last 720 hours. 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 Treated by ID (Dr Noguera in [place]) with Amikacin 750 mg MWF, Imipenem 1 g Q12H, and Omadacycline 300 mg daily - s/p R chest wall radiation - 02/26/2024: IANDD debridement and excision of infected seroma cavity on the left central breast with secondary closure, OR cx w/ M abscessus - 03/21/2024: L breast IANDD with adjancent tissue transfer reconstruction complicated by dehiscence and mediport exposure requiring another IANDD and Mediport removal on 05/02/2024 - exam on 06/01/24: Left breast wound measuring 14 x 3 cm with approximately 6 cm tunneling towards the previous port site proximally. Depth is 3/4 cm. The wound bed is healthy with granulation tissue. No surrounding erythema or necrosis. No purulent drainage. - 06/10/2024 breast cellulitis requiring another debridement on 06/14/2024- Now healed about 90% with some areas of fistulization around the edge. 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 Has been on combination imipenem, IV amkacin, omadacycline, clofazimine for her M abscessus. 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 No carbapenemases detected. Also susceptible to cefepime and zosyn She had CT brain done as she had new slurred speech and was found to have right sided brain mass. Transferred to [facility] for management. Needs right tissue putty mixer to be removed in order to get MRI in order to be evaluated for radiation therapy. Planned for OR 08/30 for removal of tissue putty mixer. RECOMMENDATIONS: Continue current abx regimen - Omadacycline 300 mg qd - from home - Clofazimine 100 mg qh - from home - Amikacin 900 mg three times weekly with goal peak 30 (more content not included)... [facility] 08-29-2024 Note HNO ID: [id number] Author: CLAIRE STRATTON RN Service: Care Management Author Type: Registered Nurse Type: Care Mgt Initial Assessment Filed: 08/30/2024 11:45 Note Text: CARE MANAGEMENT: ASSESSMENT AND DISCHARGE PLAN SERVICE DATE: August 29, 2024 SERVICE TIME: 1:32 PM PCP: Kaye Manuel CNP, CNP Primary Contact: Extended Emergency Contact Information Primary Emergency Contact: Jean Carlos Becker Relation: Spouse Admission Status: Inpatient Insurance Provider: [facility] [employer] MEDICAID OF [place] Discharge Planning requested by: Per Department Practice Potential Transition Plans To Be Determined, Home Care Pharmacy Advance Directives Current Advance Directive: None House Cleaner Supervisor Attempted to Assist with AD Completion: Yes Action: Education Provided Current Living Arrangements and Support Lives with: Spouse/significant other, Parent Type of Residence: Private Residence (House) Does the patient have to climb stairs at home?: Yes, stairs outside the home Support: Spouse/significant other How do you manage to accomplish the following: Independent: Ambulation, Bathe/Shower, Dress, Meals/Meal Prep, Going to the bathroom, Medication Management, Transportation to appointments/community Current Services/Equipment Current Post-Acute Service(s): Infusion Services Current Post-Acute Service(s) Provider: [facility] Discharge Planning Patient Goal(s): General wellness [place] Explained: [place] Given: No Reason Not Given: No placements necessary Are you interested in bedside delivery of your medications? Yes Discharge Planning Participant(s): Patient Patient/Family Comments: Caregiver Assessment: Caregiver is ready, willing and able to meet the patient's needs as recommended by the inter-professional team: Yes Name of Caregiver: Spouse Transport at Discharge: Transportation Arrangements: Car Destination: Home Needs Prior to Discharge: Needs Prior to Discharge: To Be Determined, IV Antibiotics Post-Acute Discharge Plan: Per the EMR, Ike Flannery ( ) is a 53 year old woman with a history of right breast cancer s/p 16 cycles of R chest wall radiation (last 01/2024), s/p chemotherapy with pembolizumab, paclitaxel+carboplatin, doxorubicin+cyclophosphamide, most recently started daily Xeloda 1500mg BID, as well as hypertension, presenting with focal neurologic deficits and new finding of brain metastases at [facility]. Patient from home with spouse and mom. 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 6 clicks 24, currently on RA. Patient has been on two IV abx at home thru PICC since December [address] Herman Lui with [facility] ph: [phone]. Active with [facility] ph: [phone] and f: [phone]. Will need to determine if inpatient ID doctor will order COPAT to resume services or if orders will be needed from Dr. Lui. Patient and spouse independent with dressing changes. Patient gets lab draws at [facility] ph: [phone] - will need to send updated COPAT with lab draw orders. Spouse to transport on discharge. CM will continue to follow. August 30, 2024 11:43 AM Per [facility], since [facility] is not following for homegoing IV abx and the order is written by an outside provider they will not require a new order. Patient set to resume services on discharge. CM to update [facility] on discharge plans. SIGNATURE: Claire Stratton RN PATIENT NAME: Ike Flannery DATE: August 29, 2024 TIME: 1:32 PM [facility] 08-29-2024 Note HNO ID: [id number] Author: GENNA SAHU DO Service: Hematology/Oncology Author Type: Physician Type: Progress Notes Filed: 08/29/2024 12:42 Note Text: SOLID TUMOR SERVICE PROGRESS NOTE Overnight: From 5P - 7A, [place] [phone]. Subjective INTERVAL HPI: JAVIER COREA. She is feeling well today REVIEW OF SYSTEMS Review of Systems Positives listed in bold, most pertinent positives in HPI, otherwise negative General: (+/-) fever, chills, sweats, fatigue (since starting Xeloda), weight gain, weight loss, malaise Neurological: (+/-) sensory changes, headache, focal weakness (RLE), slurred speech, dizziness, frequent falls Eyes: (+/-) vision loss, vision changes Nose: (+/-) bleeding, congestion Cardiac: (+/-) chest pain, palpitations, syncope, JOSE Respiratory: (+/-) shortness of breath, cough, hemoptysis Gastrointestinal: (+/-) constipation, diarrhea, nausea, vomiting, abdominal pain, hematochezia, melena Extremities: (+/-) swelling, cramping, weakness Skin: (+/-) rash, chronic infection as per HPI Heme: (+/-) easy bruising, heavy bleeding Objective Vitals: Temp (24hrs), Av.7 ?C (98 ?F), Min:36.4 ?C (97.5 ?F), Max:36.8 ?C (98.2 ?F) BP 107/79 Pulse 80 Temp 36.5 ?C (97.7 ?F) (Oral) Resp 16 Ht 177.8 cm (5' 10 ) Wt 88 kg (194 lb 0.1 oz) SpO2 99% BMI 27.84 kg/m? Intake AND Output Intake/Output Summary (Last 24 hours) at 08/29/2024718 Last data filed at 08/28/20242008 Gross per 24 hour Intake 610 ml Output -- Net 610 ml Eastern Cooperative Oncology Group (ECOG): 0: Fully active, able to carry on all pre-disease performance without restriction PHYSICAL EXAM General: The patient is alert and oriented x3, in no apparent distress. HEENT: PERRLA, EOMI, normocephalic. Vision intact. Neck supple. Lungs: Normal work of breathing. Lungs CTA bilaterally. Heart: normal rate, regular rhythm, normal S1 and S2, no murmurs, rubs, or gallops. Abdomen: soft, non-distended, non-tender, small ecchymosis c/w prior anticoagulation injection. Extremities: Warm and well perfused. Radial and posterior tibial pulses 2+ bilaterally. Prominent right breast c/w presence of tissue putty mixer. Skin: Warm, dry. Chronic wound of left breast with clean pink base Neurologic: AOx3. CN: II-XII intact. Strength 5/5 proximally and distally in all 4 extremities and hands/feet. Sensation intact bilaterally. Esl Instructional Assistant strength equal and strong bilaterally. No dysmetria. Romberg negative. No gait abnormalities. Ljzpqs-iz-zmbk and javh-cs-mrdc intact bilaterally. No notable dysarthria on exam. Perceived difficulty writing name however no perceived change in signature. MEDICATIONS Current Facility-Administered Medications Medication Dose Route Frequency potassium-sodium phosphates 1 packet (PHOS-NAK) 1 packet ORAL PC and HS acetaminophen 650 mg tab(s) (TYLENOL) 650 mg ORAL/FEEDING TUBE q 6 H PRN dexAMETHasone 4 mg tab(s) (DECADRON) 4 mg ORAL BID 9a/3p LORazepam 1 mg tab(s) (ATIVAN) 1 mg ORAL/FEEDING TUBE DAILY PRN capecitabine 1,500 mg tab(s) (XELODA) 1,500 mg ORAL BID NaCl 0.9% iv flush bag 20 mL INTRAVENOUS PRN carvedilol 12.5 mg tab(s) (COREG) 12.5 mg ORAL BID w MEALS gabapentin 300 mg cap(s) (NEURONTIN) 300 mg ORAL BID hydrOXYzine HCl 25 mg tab(s) (ATARAX) 25 mg ORAL q 4 H PRN spironolactone 12.5 mg tab(s) (ALDACTONE) 12.5 mg ORAL DAILY imipenem-cilastatin 1 g in NaCl 0.9% 250 mL (PRIMAXIN) 1 g INTRAVENOUS q 12 HR amikacin 900 mg in D5W 50 mL 900 mg INTRAVENOUS MO-WE-FR heparin 5,000 Units injection 5,000 Units SUBCUTANEOUS q 8 H LABORATORY DATA Recent Labs 08/29/24 0300 08/28/24 0258 08/27/24 0329 WBC 9.86 7.55 3.94 RBC 2.85* 2.81* 2.88* HB 9.1* 9.1* 9.4* HCT 27.1* 26.6* 27.3* PLT 242 222 224 MCV 95.1 94.7 94.8 MCH 31.9 32.4 32.6 MCHC 33.6 34.2 34.4 RDWCV 19.1* 18.7* 18.7* MPV 9.2 9.3 9.0 NEUTP 85.6 83.6 53.4 ABSNEUT 8.44* 6.31 2.11 LYMPHP 9.1 9.8 26.9 MONOP 4.4 5.6 10.7 EODINP 0.0 0.0 6.9 BASOP 0.1 0.1 1.3 ABSMONO 0.43 0.42 0.42 ABSEOSIN <0.03 <0.03 0.27 ABSBASO <0.03 <0.03 0.05 Recent Labs 08/29/24 0300 08/28/24 0258 08/27/24 0329 NA 143 139 140 K 3.8 3.4* 3.5* CHLOR 109* 106 106 CO2 21* 22 24 CREAT 1.09* 1.10* 1.15* BUN 18 14 13 GLUC 104* 144* 96 P 3.8 2.4* 3.1 TPROT 5.9* 6.0* 5.8* ALB 3.9 3.9 3.9 MG 2.0 2.0 2.0 CA 9.2 9.5 9.5 ALKPHOS 86 90 101 TBILI 0.5 0.5 0.5 AST 51* 49* 74* ALT 72* 71* 91* Lines, Drains, and Airways Line Duration Central Line Double Lumen Peripherally Inserted (PICC) Left Arm -- days DATA: Diagnostic tests reviewed for today's visit: Most recent labs and imaging Assessment/Plan Active Hospital Problems Diagnosis Date Noted POA Cerebellar dysarthria 08/27/2024 Yes Iron deficiency anemia 08/28/2024 Unknown 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) 08/27/2024 Yes Breast cancer metastasized to liver, unspecified laterality (HCC (more content not included)... [facility] 08-28-2024 Note HNO ID: [id number] Author: LOU ELIZABETH MD Service: Oncology Author Type: Physician Type: Progress Notes Filed: 08/28/2024 19:38 Note Text: SOLID TUMOR SERVICE PROGRESS NOTE Overnight: From 5P - 7A, [place] [phone]. Subjective INTERVAL HPI: JAVIER COREA. She is feeling well today REVIEW OF SYSTEMS Review of Systems Positives listed in bold, most pertinent positives in HPI, otherwise negative General: (+/-) fever, chills, sweats, fatigue (since starting Xeloda), weight gain, weight loss, malaise Neurological: (+/-) sensory changes, headache, focal weakness (RLE), slurred speech, dizziness, frequent falls Eyes: (+/-) vision loss, vision changes Nose: (+/-) bleeding, congestion Cardiac: (+/-) chest pain, palpitations, syncope, JOSE Respiratory: (+/-) shortness of breath, cough, hemoptysis Gastrointestinal: (+/-) constipation, diarrhea, nausea, vomiting, abdominal pain, hematochezia, melena Extremities: (+/-) swelling, cramping, weakness Skin: (+/-) rash, chronic infection as per HPI Heme: (+/-) easy bruising, heavy bleeding Objective Vitals: Temp (24hrs), Av.7 ?C (98 ?F), Min:36.4 ?C (97.5 ?F), Max:36.8 ?C (98.2 ?F) BP 117/83 Pulse 77 Temp 36.4 ?C (97.5 ?F) (Oral) Resp 16 Ht 177.8 cm (5' 10 ) Wt 88 kg (194 lb 0.1 oz) SpO2 98% BMI 27.84 kg/m? Intake AND Output Intake/Output Summary (Last 24 hours) at 08/28/2024 0724 Last data filed at 08/28/2024 0354 Gross per 24 hour Intake 800 ml Output -- Net 800 ml Eastern Cooperative Oncology Group (ECOG): 0: Fully active, able to carry on all pre-disease performance without restriction PHYSICAL EXAM General: The patient is alert and oriented x3, in no apparent distress. HEENT: PERRLA, EOMI, normocephalic. Vision intact. Neck supple. Lungs: Normal work of breathing. Lungs CTA bilaterally. Heart: normal rate, regular rhythm, normal S1 and S2, no murmurs, rubs, or gallops. Abdomen: soft, non-distended, non-tender, small ecchymosis c/w prior anticoagulation injection. Extremities: Warm and well perfused. Radial and posterior tibial pulses 2+ bilaterally. Prominent right breast c/w presence of tissue putty mixer. Skin: Warm, dry. Chronic wound of left breast with clean pink base Neurologic: AOx3. CN: II-XII intact. Strength 5/5 proximally and distally in all 4 extremities and hands/feet. Sensation intact bilaterally. Esl Instructional Assistant strength equal and strong bilaterally. No dysmetria. Romberg negative. No gait abnormalities. Nxuhdw-mr-gkje and prmk-dj-uaax intact bilaterally. No notable dysarthria on exam. Perceived difficulty writing name however no perceived change in signature. MEDICATIONS Current Facility-Administered Medications Medication Dose Route Frequency dexAMETHasone 4 mg tab(s) (DECADRON) 4 mg ORAL BID 9a/3p LORazepam 1 mg tab(s) (ATIVAN) 1 mg ORAL/FEEDING TUBE DAILY PRN capecitabine 1,500 mg tab(s) (XELODA) 1,500 mg ORAL BID NaCl 0.9% iv flush bag 20 mL INTRAVENOUS PRN carvedilol 12.5 mg tab(s) (COREG) 12.5 mg ORAL BID w MEALS gabapentin 300 mg cap(s) (NEURONTIN) 300 mg ORAL BID hydrOXYzine HCl 25 mg tab(s) (ATARAX) 25 mg ORAL q 4 H PRN spironolactone 12.5 mg tab(s) (ALDACTONE) 12.5 mg ORAL DAILY imipenem-cilastatin 1 g in NaCl 0.9% 250 mL (PRIMAXIN) 1 g INTRAVENOUS q 12 HR levoFLOXacin 750 mg tab(s) (LEVAQUIN) 750 mg ORAL DAILY (6 AM) amikacin 900 mg in D5W 50 mL 900 mg INTRAVENOUS MO-WE- heparin 5,000 Units injection 5,000 Units SUBCUTANEOUS q 8 H LABORATORY DATA Recent Labs 08/28/24 0258 08/27/24 0329 08/26/24 1753 WBC 7.55 3.94 4.28 RBC 2.81* 2.88* 3.06* HB 9.1* 9.4* 10.0* HCT 26.6* 27.3* 29.0* PLT 222 224 246 MCV 94.7 94.8 94.8 MCH 32.4 32.6 32.7 MCHC 34.2 34.4 34.5 RDWCV 18.7* 18.7* 18.7* MPV 9.3 9.0 9.0 NEUTP 83.6 53.4 58.2 ABSNEUT 6.31 2.11 2.49 LYMPHP 9.8 26.9 20.8 MONOP 5.6 10.7 11.4 EODINP 0.0 6.9 7.5 BASOP 0.1 1.3 1.4 ABSMONO 0.42 0.42 0.49 ABSEOSIN <0.03 0.27 0.32 ABSBASO <0.03 0.05 0.06 Recent Labs 08/28/24 0258 08/27/24 0329 08/26/24 1753 NA 139 140 141 K 3.4* 3.5* 3.9 CHLOR 106 106 106 CO2 22 24 22 CREAT 1.10* 1.15* 1.24* BUN 14 13 13 GLUC 144* 96 83 P 2.4* 3.1 3.2 TPROT 6.0* 5.8* 6.1* ALB 3.9 3.9 4.1 MG 2.0 2.0 2.1 CA 9.5 9.5 9.6 ALKPHOS 90 101 110 TBILI 0.5 0.5 0.6 AST 49* 74* 94* ALT 71* 91* 106* Lines, Drains, and Airways Line Duration Central Line Double Lumen Peripherally Inserted (PICC) Left Arm -- days DATA: Diagnostic tests reviewed for today's visit: Most recent labs and imaging Assessment/Plan Active Hospital Problems Diagnosis Date Noted POA Cerebellar dysarthria 08/27/2024 Yes Breast cancer metastasized to brain, unspecified laterality (HCC) 08/27/2024 Yes Breast cancer metastasized to liver, unspecified laterality (HCC) 08/27/2024 Yes 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 [facility] 08-26-2024 Note HNO ID: [id number] Author: RISHI ANDREA MD Service: Oncology Author Type: Resident Type: Plan of Care Filed: 08/26/2024 15:58 Note Text: PLAN OF CARE ____ Patient Name: Ike Flannery Date: August 26, 2024 Re: Antibiotic regimen Information below is a summary of this patient's ID plan from Avi Tobar, SukiD, BCPS, research pharmacist at [facility], sent by email on 08/26/24. Dr. Herman Lui said that he will call [facility] ID. Dr. Herman Lui can be reached at cell phone [phone], please feel free to share with ID. You can also share my phone numbers, too. Patient will need ID consult among other consults (neurology, radiation, oncology). Patient is bringing in home medications of omadacycline (300 mg once daily in the morning is dose) and clofazimine. Please resume omadacycline Please resume clofazimine at this time. ID can further evaluate continuation. Clofazimine is dosed 100 mg (2 capsules) with an evening meal. It will need to be checked depending on admission time if she already took a dose. Pharmacy's discretion if they want to count out individual capsules for accountability as I am understanding that they roll around a lot. Clofazimine will not reconcile directly into [facility] since [facility] has an individually built entry, so please enter order per your processes. Amikacin 900 mg three times weekly: therapeutic peaks (CORRECTION: goal for this patient 30 to 40 mcg/mL), undetectable troughs. Please resume regimen. Last dose 08/24/24, so she is next due on Thursday (08/26/24). Imipenem/cilastatin 1 gm IV Q12h should be resumed. Intermediate susceptibilities. Documented hypersensitivity intolerance to ceftaroline. Do not use. If any records are needed, let us know. We have cultures/sensitivities, etc. Hopefully, there's a lot in [facility] Care Everywhere. Patient is undergoing work up for causes of acute LFT elevations and slight bump increase in serum creatinine and increases in potassium. Spironolactone was decreased from 25 mg to 12.5 mg daily starting today. Differential diagnosis for LFTs (watching to see if 5 x ULN): liver metastasis vs. clofazimine vs. acute post-surgery Consideration of replacing clofazimine with tedizolid? However, patient possibly had hematological toxicities to tedizolid, requiring discontinuation. ID will need to evaluate. Dr. Lui was working on getting beta-lactam synergy testing done on a sample. Maybe this is a chance to coordinate this. A 10 days course of levofloxacin 750 mg daily was recently completed for Pseudomonas aeruginosa tissue sample. SIGNATURE: Rishi Andrea MD Internal Medicine Resident, PGY-1 PATIENT NAME: Ike Flannery DATE: August 26, 2024 TIME: 1539 PAGER: [phone] [facility] 08-25-2024 Note The following action s were done/reviewed. Care was coordinated accordingly and patient was communicated with. Follow up EKG done on 08/24 for levofloxacin and clofazimine QT c prolongation obtained. Results reviewed and approved by Dr. Lui. Uploaded into [employer]. I spoke to Richie Hanna CNP on the phone and reviewed recent labs (potassium/serum creatinine/eGFR). Recommendation accepted to decrease spironolactone from 25 mg daily to 12.5 mg daily. Prescription sent and updated in [email or web address]. Patient will self-monitor and record BP/HR at home and communicate if it increases. Follow up on continued hepatic monitoring: INR results from 08/[address] Lui to review. CMP results from 08/24 are pending fax from [facility] and posting in [place] [employer]. Avi Tobar, PharmD, BCPS; Clinical Research Pharmacist. [facility] 08-25-2024 History of Present illness Narrative Called patient's pharmacist from [facility] and pharmacist stated that patient's serum creatinine [...] Garcia 08/25/24 1001 documented in this encounter [facility] [employer] [facility] 08-24-2024 Note [id number] Theresa Flannery 1970 F Date Provider Department Center 08/24/2024 [facility] INF Anthony Heal Family History Adopted: Yes Problem Relation Age of Onset Heart attack Father Family Status - Relation Status Age at Father [facility] 08-23-2024 Note Spoke with Rajinder at [facility] to determine if CMP was done with CBC and liver panel from 08/22. He stated one was not done but they still had tube and could add CMP on. Fax number confirmed. CMP orders faxed to [facility]. [facility] 08-19-2024 Note [facility]ication list [facility] History of Present illness Narrative Images from the original note were not included. [facility] [address] Office Jhon Gross MD, PhD Marisela Cuevas, PLANNING LEAD-APPARATUS ENGINEERING TECHNOLOGIST Shereen Smallwood PA-C Plastic Surgery Progress Note Reason for visit : post-op History of present illness: Ike Flannery is a 53 y.o. female with a history of right breast cancer status post bilateral skin sparing mastectomies (He) and tissue putty mixer reconstruction in 10/28/2023. Her postoperative course was complicated by an infected seroma of her left breast requiring operative washout and tissue putty mixer removal 11/27/23. Intraoperative cultures demonstrated growth of [...] from all surgeries were positive for mycobacterium abscesses. In addition, Pseudomonas was present in debridement from 08/12/2024. The patient's mycobacterium labs were sent further to [facility] per Infectious Disease request. The patient is doing well postoperatively. The patient denies fever, chills, redness or drainage from surgical wound(s). Review of Systems: Denies surgical site concerns. All other symptoms negative except as noted in HPI. Physical Examination: Vitals: 08/18/24 1541 BP: 118/82 Pulse: 93 Resp: 16 Temp: 36.6 C (97.8 F) There is no height or weight on file to calculate BMI. GENERAL: no acute distress, well developed, well nourished. LYMPHATIC: no upper extremity lymphedema NEUROLOGIC: alert and oriented to time, place and person. PSYCH: judgement and insight good, mood/affect full range. Focused examination : Wound overall appeared healthy. There were some areas of hypergranulation to which silver nitrate was applied. There was 1 area along the lateral incision with more steady bleeding for which aggressive silver nitrate was applied. The remainder of the wound however appeared healthy with granulation. No areas were concerning for further necrosis. Impression: 1. Breast wound, left, sequela 2. Complicated wound infection Recommendations: Advise we start wet-to-dry dressing changes with 0.25% acetic acid solution. If she is unable to obtain this however, we can continue with wet-to-dry. We discussed that ascetic acid is more beneficial for Pseudomonas however, she is currently on IV antibiotics for coverage. I would like to see her back in 1-2 weeks for re-evaluation. SHEREEN SMALLWOOD PA-C Please note that portions of this note were generated using voice recognition M*Modal dictation software. Although every effort was made to ensure the accuracy of this automated control panel operator crude unit, some errors in control panel operator crude unit may have occurred. 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 Adenocarcinoma of liver with breast primary Here to discuss clofazamine, has been approved by IRB, FDA and [facility]. Consent signed and reviewed with Avi Tobar [facility], patient and myself. Updated Consent reviewed and signed on 05/20/24 Radiation therapy- completed Keytruda currently held Oopherectomy On anastrozole. 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 Clofazimine JOSÉ MIGUEL remains <= 0.5 Imipenem remains at JOSÉ MIGUEL of 16 No JOSÉ MIGUEL creep noted. There is an additional culture from 03/21/24 that is pending, has been sent to [facility] for further work up. Awaiting those results as well. 05/20/2024 Wound vac to be placed soon on her left chest Currently on IV Amikacin, imipenem, ceftaroline, PO clofazimine. on Fibroid? PET scan in two weeks, plan on full body Allergy referrral: Tentative plan for omadacycline. Verzenio, just a week and then held. Narcan kit given, clofazimine can increase serum level of oxycodone 06/30/2024 STOPPED CEFTAROLINE BECAUSE OF DRUG FEVER TEDIZOLID, INITIALLY STOPPED BECAUSE OF THROMBOCYTOPENIA STARTED OMADACYCLINE DUE FOR 3 MONTH EKG FOR CLOFAZIMINE AROUND 07/19 Antibiotics Imipenem: 12/05/2023 to present Ciprofloxacin:12/04/2024 to 12/11/2023 Clarithromycin 12/05/2023 to 01/15/2024 Linezolid 12/11/2023 to 01/01/2024 Tedizolid 01/02/2024 to 05/10/2024 Clofazimine 02/15/2024 to present Amikacin 04/15/2024 to present Ceftaroline 05/12/2024 to 05/26/2024 Omadacycline 05/27/2024 to present Levofloxacin 08/16/24-08/25/2024 08/16 Xeloda (capcitebine) Adenocarcinoma from liver biopsy, consistent with breast mets See Shereen again on Thursday, for wound evaluation. Cultures from 08/09 growing pseudomonas, it is imipenem resistant, and intermediate to meropenem, this is to be expected with the prolonged carbapenem exposure. Otherwise susceptible to cefepime, pip-tazo, and oral floroquinolones. The new wound is near the previous drain. Pembrolizumab stopped. Recommendations: PO Tedizolid 200mg once daily-stopped Continue clofazamine 100mg once daily, started on 02/14 Continued Addition of IV ceftaroline 600mg TID-STOPPED Imipenem has been extended and redosed 1g q12hrs with improved renal function Amikacin (STARTED 04/15/24) continued 3 times a week, current dose 900mg, with goal peak 30-35 Will need monitoring labs and 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 Desensitized to omadacycline-tolerating well Current regimen: Clofazimine 100mg daily Omadacycline 300mg daily Imipenem 1g q12hrs IV amikacin 900mg three times a week, with peaks around 30 to 35 Spoke over the phone to [facility] ID, they agree with our plan. Additional Isolate has been sent to [facility]/, lab of and for additional synergy testing Will setup telemeeting with them in the near future. New pseudomonas from 08/09 wound culture Start levofloxacin 750mg daily for 10 days Will repeat one time EKG to monitor QTC with additional prolonging agent Cr slight bump to 1.14 will continue to monitor Monitor LFTs, transaminases slightly elevated, remain less than 5x ULN Subjective History of Present Illness: She was [facility] from 05/02/2024 to 05/13/2024. I had discussed with patient's plastic surgeon Dr. Gross that I was concerned about her left chest port and her continuing wound from the left breast area. After her appointment with me patient had sent in pictures of the wound dehiscing. I forwarded these pictures and my concerns to Dr. Gross's office who promptly had patient admitted to [facility] for left Mediport removal and additional debridement. While there she was continued on her IV amikacin, p.o. tedizolid, and oral clofazimine. She is initially receiving clofazimine at a lower dose of 50 mg however this was later corrected and she received her appropriate dose o (more content not included)... [facility] 08-12-2024 Miscellaneous Notes Jared from [facility] called to say patient was positive for AFB and he sent it out. Message sent to Dr. Poole documented in this encounter [place] [facility] Tele[facility] encounter Note Jared from [facility] called to say patient was positive for AFB and he sent it out. [facility] 08-12-2024 Telephone encounter Note Message sent to Dr. Poole [facility] 08-10-2024 History of Present illness Narrative Subjective Patient ID: Ike Flannery is a 53 y.o. female. The patient is here today for discharge follow up from hospital. Transition of Care Med Rec completed? Yes Discharged medications: Medications have been reviewed and reconciled with the most recent facility discharge document. HPI The following portions of the patient's history were reviewed and updated as appropriate: current medications, past medical history, past surgical history, problem list, and medication reconciliation was completed including current medication and post discharge [...] Affect: Mood normal. Behavior: Behavior normal. Assessment/Plan Ike was seen today for tcm- july 29 debrievement of left breast tissue. Diagnoses and all orders for this visit: Mycobacterium abscessus infection -continue follow-up with wound clinic, home health for IV antibiotic infusions, and plastic surgery as previously arranged -future debridements are already scheduled Malignant neoplasm of lower-inner quadrant of right breast of female, estrogen receptor positive ([facility]) -continue follow-up with Oncology both locally and at [facility] documented in this encounter [facility] 08-10-2024 Instructions Formatting of th is note might be different from the original. Your surgery/procedure is scheduled at [facility] on 08/12/24 at 8:00 Arrival Time 6:00 [facility] Address: [address] [place] [address], [facility] in the Emergency Center Parking lot. Report to the front end loader operator in the Emergency/Surgery Registration lobby of the hospital. Notify your SURGEON if you develop any illness such as a cold, cough, fever, sore throat, vomiting or are hospitalized between now and your surgery. Please call Pre-Admission Clinic at [phone] if you have any questions prior to surgery. For questions the morning of surgery, call the Pre-op Department at [phone]. Medication Instructions (Do not stop your medications [...] would like to schedule therapy at a [facility] facility, please call [phone] ([phone]). Do not use lotions, creams, powders, perfume, make up, cologne or after-shaves day of surgery. Remove ALL jewelry including wedding rings, body piercings, hair extensions that contain metal, nail malagasy, make-up, and contact lens. You may brush [...] pets in your bed. Please be advised, [facility] [place] has transitioned to a cashless payment system. [...] RIGHTS AND RESPONSIBILITIES As a patient at [facility], you have the right to: Receive medical care and be informed of who is taking care of you Be treated with dignity and respect Have a family member/registration representative of choice and your physician notified of your admission Receive information and actively participate in decisions about your care and treatment Refuse care, treatment and services Decide who may provide your support and speak for you Access orthodoxy and spiritual services Participate in ethical issues [...] of hospital charges and payment methods Patient/patient registration representative responsibilities are to: Provide information about health status to facilitate care, treatment and services Follow the treatment, plan, keep appointments and speak up when you do not understand the plan Respect the rights of other patients and healthcare personnel Follow organizational rules and regulations that support quality care and a safe environment Fulfill financial obligations as promptly as possible [facility] 08-10-2024 Miscellaneous Notes Your surgery/procedure is scheduled at [facility] on 08/12/24 at 8:00 Arrival Time 6:00 [facility] Address: [address] [place] [address], [facility] [place] in the Emergency Center Parking lot. Report to the front end loader operator in the Emergency/Surgery Registration lobby of the hospital. Notify your SURGEON if you develop any illness such as a cold, cough, fever, sore throat, vomiting or are hospitalized between now and your surgery. Please call Pre-Admission Clinic at [phone] if you have any questions prior to surgery. For questions the morning of surgery, call the Pre-op Department at [phone]. Medication Instructions (Do not stop your medications [...] weekly, hold 1 week prior to surgery: Stuunjaro . Blood thinners: Please contact your prescribing [...] would like to schedule therapy at a [facility] facility, please call [phone] ([phone]). Do not use lotions, creams, powders, perfume, make up, cologne or after-shaves day of surgery. Remove ALL jewelry including wedding rings, body piercings, hair extensions that contain metal, nail malagasy, make-up, and contact lens. You may brush [...] pets in your bed. Please be advised, [facility] [place] has transitioned to a cashless payment system. [...] RIGHTS AND RESPONSIBILITIES As a patient at [facility], you have the right to: Receive medical care and be informed of who is taking care of you Be treated with dignity and respect Have a family member/registration representative of choice and your physician notified of your admission Receive information and actively participate in decisions about your care and treatment Refuse care, treatment and services Decide who may provide your support and speak for you Access orthodoxy and spiritual services Participate in ethical issues [...] of hospital charges and payment methods Patient/patient registration representative responsibilities are to: Provide information about [...] promptly as possible documented in this encounter [facility] 08-09-2024 Miscellaneous Notes LEFT VOICEMAIL SURGERY SCHEDULED 08/12 AT 8AM, ARRIVE AT 6AM. NPO 8HRS PRIOR. documented in this encounter [facility] 08-09-2024 Telephone encounter Note LEFT VOICEMAIL SURGERY SCHEDULED 08/12 AT 8AM, ARRIVE AT 6AM. NPO 8HRS PRIOR. [facility] 08-08-2024 History of Present illness Narrative Images from the original note were not included. [facility]astic & Re[facility] Surgery [address] Office Jhon Gross MD, PhD Marisela Cuevas APRN-ESPERANZA Smallwood PA-C Plastic Surgery Progress Note Reason for visit : post-op History of present illness: Ike Flannery is a 53 y.o. female with a history of right breast cancer status post bilateral skin sparing mastectomies (He) and tissue putty mixer reconstruction in 10/28/2023. Her postoperative course was complicated by an infected seroma of her left breast requiring operative washout and tissue putty mixer removal 11/27/23. Intraoperative cultures demonstrated growth of [...] port. She returned again on 05/04/2024, 06/13/24, 07/27/24. Cultures from all surgeries were positive for Mycobacterium abscesses. She is following closely with Infectious Disease Dr. Lui. She has been tolerating wet-to-dry dressing changes as instructed. She has no complaints today. The patient is doing well postoperatively. The patient denies fever, chills, redness or drainage from surgical wound(s). Review of Systems: Denies surgical site concerns. All other symptoms negative except as noted in HPI. Physical Examination: Vitals: 08/08/24 0930 BP: 126/86 Pulse: 78 Resp: 15 Temp: 36.2 C (97.1 F) There is no height or weight on file to calculate BMI. GENERAL: no acute distress, well developed, well nourished. LYMPHATIC: no upper extremity lymphedema NEUROLOGIC: alert and oriented to time, place and person. PSYCH: judgement and insight good, mood/affect full range. Focused examination : Overall wound bed appears healthy however there are some edges along the lateral breast with slough as well as medial breast. These areas were debrided using a 15 blade which patient tolerated well. They were debrided down to healthy tissue. Upon applying patient's dressings and wrapping her, it was noted that there were few areas of actinic type papules which, patient states is how her m. Abscessus skin necrosis often starts. Post debridement Impression: 1. Complicated wound infection 2. Breast wound, left, sequela Recommendations: the wound was debrided down to healthy tissue noted above. Discussed with patient that she would benefit from repeat debridement which we will coordinate and schedule in the near future. SHEREEN SMALLWOOD PA-C Please note that portions of this note were generated using voice recognition [employer] dictation software. Although every effort was made to ensure the accuracy of this automated control panel operator crude unit, some errors in control panel operator crude unit may have occurred. Shereen Smallwood PA-C 08/29/24 1141 documented in this encounter [facility] 08-04-2024 History of Present illness Narrative Updated wound care orders sent to [facility] wound care at [phone] INÉS PAYNE PA-C 08/04/24 1551 documented in this encounter [facility] 08-03-2024 History of Present illness Narrative Images from the original note were not included. [facility] Plastic & Reconstructive Surgery [address] Office Jhon Gross MD, PhD Marisela Cuevas, PLANNING LEAD-ESPERANZA Smallwood PA-C Plastic Surgery Progress Note Reason for visit : post-op History of present illness:Ike Flannery is a 53 y.o. female with a history of right breast cancer status post bilateral skin sparing mastectomies (He) and tissue putty mixer reconstruction in 10/28/2023. Her postoperative course was complicated by an infected seroma of her left breast requiring operative washout and tissue putty mixer removal 11/27/23. 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 The patient is doing well postoperatively. The patient denies fever, chills, redness or drainage from surgical wound(s). Review of Systems: Denies surgical site concerns. All other symptoms negative except as noted in HPI. Physical Examination: Vitals: 08/03/24 0931 BP: 138/88 Pulse: 76 Resp: 16 Temp: 36.4 C (97.5 F) Body mass index is 27.58 kg/m . GENERAL: no acute distress, well developed, well nourished. LYMPHATIC: no upper extremity lymphedema NEUROLOGIC: alert and oriented to time, place and person. PSYCH: judgement and insight good, mood/affect full range. Focused examination : Wound with some areas of slough and tunneling medially. A 15 gauge blade was used to clean the areas down to healthy margins. The patient was instructed to apply packing into the tunneled area medially as well. Impression: 1. Breast wound, left, sequela 2. Mycobacterium abscessus infection 3. Complicated wound infection Recommendations: Patient will continue with b.i.d. wet-to-dry dressing changes. We discussed outpatient wound care applying silver alginate twice a week as well. We will see her back in 1 week for clinical re-evaluation. SHEREEN SMALLWOOD PA-C Please note that portions of this note were generated using voice recognition [employer] dictation software. Although every effort was made to ensure the accuracy of this automated control panel operator crude unit, some errors in control panel operator crude unit may have occurred. Shereen Smallwood PA-C 08/29/24 1144 documented in this encounter [facility] 07-27-2024 History of Present illness Narrative The patient was recently diagnosed with metastatic breast cancer to the liver and a started treatment with Medical Oncology at [facility], we discussed in detail that this pelvic lesion as it is asymptomatic should be simply monitored for the time being and that an operation is not in her best interest at this time. We did discuss reconnecting towards the end of the summer following 3 months of treatment to reassess her status at that time. 19 minutes was spent on the phone with the patient discussing her current state, and future treatment planning. documented in this encounter [facility] 07-22-2024 Telephone encounter Note Contacted patient via phone to discuss. Patient states that she has spoken to her local oncologist and they have recommended stopping the anastrozole and initiating capecitabine (Xeloda) now. Patient would like to confirm timing with Dr Christy, per notes it was mentioned to start new systemic therapy following recovery from planned surgical debridement next week. Patient requests clarification if Dr Christy has exact timing she would like patient to start as she has had difficulty with healing up to this point and is anxious to delay treatment for a significant period of time. Will review with Dr Christy and will update patient with recommendations once known. Saman Jeo RN [facility] Work Phone: 07-22-2024 Miscellaneous Notes Contacted patient via phone to discuss. Patient states that she has spoken to her local oncologist and they have recommended stopping the anastrozole and initiating capecitabine (Xeloda) now. Patient would like to confirm timing with Dr Christy, per notes it was mentioned to start new systemic therapy following recovery from planned surgical debridement next week. Patient requests clarification if Dr Christy has exact timing she would like patient to start as she has had difficulty with healing up to this point and is anxious to delay treatment for a significant period of time. Will review with Dr Christy and will update patient with recommendations once known. Saman Joe RN Ike Flannery is calling Bobby Christy MD today regarding Industrial Controller - Other Patient called to let Dr. Christy know that she remembered that her other oncologist prescribed Xeloda for her and she still has it. She wanted Dr. Christy to know so that she didn't go through the process of prescribing it for her. Is it ok for her to use what she has? Patient has been identified by name and birthdate. Requesting response back: [phone] (home) [phone] (cell) Karen Mirza July [birth year], [birth year]24 documented in this encounter [facility] 07-22-2024 Telephone encounter Note Ike Flannery is calling Bobby Christy MD today regarding Industrial Controller - Other Patient called to let Dr. Christy know that she remembered that her other oncologist prescribed Xeloda for her and she still has it. She wanted Dr. Christy to know so that she didn't go through the process of prescribing it for her. Is it ok for her to use what she has? Patient has been identified by name and birthdate. Requesting response back: [phone] (home) [phone] (cell) Karen Mirza [birth year]24 [facility] 07-21-2024 Note HNO ID: [id number] Author: TOSHA HYDE RN Service: ? Author Type: Registered Nurse Type: Progress Notes Filed: 07/21/2024 16:48 Note Text: Additional intake questions: Has the patient had fever, nausea, vomiting, diarrhea, constipation, fatigue for > 1 week? No Does the patient have a decreased appetite? No Does patient want to see a Import/Export Freight Forwarder? No (yes to any of above refer patient to schedulers for dietitian appointment) ) Does patient have any new or increased numbness or tingling of extremities? No Is patient interested in fertility information? No Does patient need any prescription refills? No Does patient have an advanced directive in place? No, Patient refused referral to Social Work or Resource Center Electronically Signed By:Tosha Hyde RN [facility] 07-21-2024 Note HNO ID: [id number] Author: BOBBY CHRISTY MD Service: ? Author Type: Physician Type: Progress Notes Filed: 07/21/2024 16:48 Note Text: IDENTIFICATION: Ike Flannery is a 53 year old surgically postmenopausal woman with recent diagnosis of metastatic breast cancer referred by Dr. Aarti Hope for medical oncology consultation. HISTORY OF PRESENT ILLNESS: She was initially diagnosed with a lymph-node positive ER-weakly positive (12-15%), MD-negative, HER2-negative (IHC 0 on core biopsy, 1+ on residual disease at time of mastectomy) right breast cancer in March 2023. She was treated with neoadjuvant chemo-immunotherapy therapy consisting of pemboliziumab with paclitaxel and carboplatin followed by doxorubicin and cyclophosphamide with continuing pembrolizumab then underwent bilateral mastectomy with right axillary dissection and tissue putty mixer reconstruction at which time there was multifocal residual disease, [id number]. She received adjuvant radiation and initiated adjuvant anastrozole in about January 2024 or March 2024. She was also prescribed adjuvant abemaciclib which she believes she took for only about a week until her course was complicated by an infected seroma requiring removal of the left tissue putty mixer, mycobacterial infection, and pancytopenia. She had a BMBx in April and is interested in having that reviewed at [facility]. She has been dealing with issues related to infection and an open would on the left chest wall and had a chest CT 06/11/24 demonstrating the left chest open wound as well as right axillary spiculated soft tissue. A PET scan was done 06/12/24 and demonstrated an approximately 2.5 cm avid mass in the posterior liver without other findings suggestive of metastatic disease. Liver biopsy 07/11/24 demonstrated metastatic adenocarcinoma consistent with breast primary that is ER-positive (41-50% weak staining), MD-negative and HER2-negative (IHC 0). PMH: She has a h/o HTN, DVT (on Eliquis); she is s/p hysterectomy and subsequent BSO. FH:She is adopted and family history is not known. 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 She is engaged and has one adult son. EXAMINATION: Blood pressure 140/95, pulse 75, temperature 36.8 ?C (98.3 ?F), resp. rate 18, height 177.8 cm (5' 10 ), weight 87.8 kg (193 lb 9 oz), SpO2 100%. HEENT examination is unremarkable. No adenopathy is appreciated in the cervical or supraclavicular regions. The heart is regular. Lung examination is clear bilaterally. Examination of the left chest wall is notable for some open areas of wound which are being packed and some additional small pustular lesions. The right reconstructed breast is free of concerning masses. No axillary adenopathy is appreciated. Abdomen is soft and non-tender. There is no significant edema of the extremities. DATA: Recent labs were notable for transaminase elevations. 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 PLAN: I had a discussion with the patient and her fiance regarding management of her metastatic breast cancer. We discussed the liver biopsy results. We will plan pathology review of both the liver biopsy (and I will request assessment for HER2 ultra-low status) and bone marrow biopsy. She is anticipating surgical debridement next week. We discussed consideration of further systemic treatment following recovery from the debridement. Specifically, I have suggested consideration of oral capecitabine. We discussed that in the setting of responding disease, it may then be appropriate to consider targeted treatment to the liver such as RFI and could set up referral to Dr. Owusu here at [facility]. We discussed potential future treatment options including trastumab-deruxtecan if low-level HER2 expression is identified versus consideration of datopotamab-deruxtecan should the tumor be truly HER2-null. She and her fiance had the opportunity to have their questions addressed. She will continue to follow up with Dr. Hope. I would be happy to see her back at any point as necessary. I spent a total of about 60 minutes on the date of the service which included preparing to see the patient, [id number] patient care, completing clinical documentation, performing a medically appropriate examination, counseling and educating the patient/family/caregiver, and communicating with other HCPs (not separately reported). Bobby Christy MD CC: Dr. Aarti Hope [facility] 07-19-2024 Note HNO ID: [id number] Author: KRYSTIN BARRAGAN MD Service: ? Author Type: Physician Type: Progress Notes Filed: 07/27/2024 09:06 Note Text: INFECTIOUS DISEASES [facility] Ike Flannery is being seen in consultation at the request of Dr. Aarti Hernandez/ Javon King advice and/or opinion regarding the management of M abscess breast infection Chief complaint breast infection Note from patient, EPIC and Care everywhere HISTORIES: HPI: Patient is a 53 year old female history of hypertension, anemia, LLE DVT on Eliquis, R breast cancer 04/2023 s/p chemo x16 to till September 28/2024 followed by bilateral mastectomy with bilateral putty mixer placement, complicated by large L side large seroma. 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 Treated by ID (Dr Noguera) with Amikacin 750 mg MWF, Imipenem 1 g Q12H, and Omadacycline 300 mg daily - s/p R chest wall radiation - 02/26/2024: IANDD debridement and excision of infected seroma cavity on the left central breast with secondary closure, OR cx w/ M abscessus - 03/21/2024: L breast IANDD with adjancent tissue transfer reconstruction complicated by dehiscence and mediport exposure requiring another IANDD and Mediport removal on 05/02/2024 - exam on 06/01/24: Left breast wound measuring 14 x 3 cm with approximately 6 cm tunneling towards the previous port site proximally. Depth is 3/4 cm. The wound bed is healthy with granulation tissue. No surrounding erythema or necrosis. No purulent drainage. - 06/10/2024 breast cellulitis requiring another debridement on 06/14/2024- Now healed about 90% with some areas of fistulization around the edge. Patient is feeling well she is tolerationg current abx combination The wound is healing , packed almost healed Side effects - none. No NV, no rash. Current abx regimen Amika- Started on Apr to current- 750 TID Inimepen 1g q12hrs from start day Oct to currently Omadacycline 300mg/d April 2024 till currently Clofaz 100mg q24h since ALL: Pt was on Doxy oct- could not tolerate it- Had a rash Vanco - MIRNA - Tigecycline- rash. Skin test with omadacycline prior to initiation. REVIEW OF SYSTEMS: General - no fevers, no chills, no NS, good appetite AND good energy level HEENT prescription glasses, retinal tear in October/2023 s/p laser thepapy no sore throat, ulcers Mouth - no thrush/ulcers - dry lips Lungs - no SOB or cough Heart - no CP, + ankle s/p L leg DVT after epo shot- [place] (x 1 year) Abd -no nausea/vomiting. No constipation, no diarrhea, no blood in stools MSK: neg joint edema. L knee arthritis- bilateral Skin - no rash, Ext - no edema - no dysuria or hematuria/ no flank pain. Nocturia once End- no polyuria, no dysuria. No heat or cold intolerance Heme - denies bleeding from any site Neuro: negative for focal numbness or weakness, or syncope. PSYCHIATRIC: negative for mood disorder - has a great support systmem with fiancy . The remainder of the ROS was negative. PAST MEDICAL HISTORY Diagnosis Date Breast cancer (HCC) 04/02/2023 Completed therapy. On Estrogen jay therpay PAST SURGICAL HISTORY Procedure Laterality Date INSERTION OR REPLACEMENT OF BREAST IMPLANT ON SEPARATE DAY FROM MASTECTOMY BILATERAL Bilateral 10/28/2023 FAMILY HISTORY Adopted: Yes Meds: 0.9 % sodium chloride (NACL 0.9%) infusion amikacin (AMIKIN) 500 mg/2 mL soln anastrozole (ARIMIDEX) 1 mg tablet Take 1 mg by mouth. ELIQUIS 5 mg tab(s) Take 5 mg by mouth. carvedilol (COREG) 12.5 mg tablet Take 12.5 mg by mouth. cyanocobalamin (VITAMIN B-12) 1,000 mcg tab Take 1,000 mcg by mouth. cyclobenzaprine (FLEXERIL) 10 mg tablet Take 1 tablet by mouth every evening. diazePAM (VALIUM) 5 mg tablet Take 1 tablet (5 mg total) by mouth every 12 (twelve) hours as needed for anxiety or muscle spasms (Give 30min prior to dressing change) for up to 10 days for anxiety folic acid 1 mg tablet Take 1 mg by mouth. gabapentin (NEURONTIN) 300 mg capsule Take 300 mg by mouth. hydrOXYzine HCl (ATARAX) 25 mg tablet Take 25 mg by mouth. imipenem/cilastatin sodium (IMIPENEM-CILASTATIN INTRAVENOUS) Inject 1,000 mg intravenously. magnesium oxide 400 mg magnesium tab Take 400 mg by mouth. omadacycline (NUZYRA) 150 mg tablet Take 300 mg by mouth. oxyCODONE IR (ROXICODONE) 10 mg tab Take 1 tablet by mouth every 6 hours as needed. oxyCODONE IR (ROXICODONE) 5 mg immediate release tablet Take 1 tablet (5 mg total) by mouth every 4 hours as needed for pain for up to 7 days. Max Daily Amount 30 mg potassium chloride (K-TAB) 10 mEq tablet TAKE TWO TABLETS BY MOUTH TWICE A DAY prochlorperazine (COMPAZINE) 10 mg tablet pyridoxine, vitamin B6, (VITAMIN B6) 50 mg tablet Take 50 mg by mouth. spironolactone (ALDACTONE) (more content not included)... [facility] 07-19-2024 History of Present illness Narrative INFECTIOUS DISEASES [facility] Ike Flannery is being seen in consultation at the request of Dr. Aarti Hernandez/ Javon King advice and/or opinion regarding the management of M abscess breast infection Chief complaint breast infection Note from patient, EPIC and Care everywhere HISTORIES: HPI: Patient is a 53 year old female history of hypertension, anemia, LLE DVT on Eliquis, R breast cancer 04/2023 s/p chemo x16 to till September 28/2024 followed by bilateral mastectomy with bilateral putty mixer placement, complicated by large L side large seroma. - 10/2023 bilateral skin sparing mastectomies and tissue explander reconstruction complicated by infected seroma L side - 11/27/2023 : Left breast I&D and putty mixer removal - 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 Treated by ID (Dr Noguera) with Amikacin 750 mg MWF, Imipenem 1 g Q12H, and Omadacycline 300 mg daily - s/p R chest wall radiation - 02/26/2024: I&D debridement and excision of infected seroma cavity on the left central breast with secondary closure, OR cx w/ M abscessus - 03/21/2024: L breast I&D with adjancent tissue transfer reconstruction complicated by dehiscence and mediport exposure requiring another I&D and Mediport removal on 05/02/2024 - exam on 06/01/24: Left breast wound measuring 14 x 3 cm with approximately 6 cm tunneling towards the previous port site proximally. Depth is 3/4 cm. The wound bed is healthy with granulation tissue. No surrounding erythema or necrosis. No purulent drainage. - 06/10/2024 breast cellulitis requiring another debridement on 06/14/2024- Now healed about 90% with some areas of fistulization around the edge. Patient is feeling well she is tolerationg current abx combination The wound is healing , packed almost healed Side effects - none. No NV, no rash. Current abx regimen Amika- Started on Apr to current- 750 TID Inimepen 1g q12hrs from start day Oct to currently Omadacycline 300mg/d April 2024 till currently Clofaz 100mg q24h since ALL: Pt was on Doxy oct- could not tolerate it- Had a rash Vanco - MIRNA - Tigecycline- rash. Skin test with omadacycline prior to initiation. REVIEW OF SYSTEMS: General - no fevers, no chills, no NS, good appetite & good energy level HEENT prescription glasses, retinal tear in October/2023 s/p laser thepapy no sore throat, ulcers Mouth - no thrush/ulcers - dry lips Lungs - no SOB or cough Heart - no CP, + ankle s/p L leg DVT after epo shot- Jamel rubin (x 1 year) Abd -no nausea/vomiting. No constipation, no diarrhea, no blood in stools MSK: neg joint edema. L knee arthritis- bilateral Skin - no rash, Ext - no edema - no dysuria or hematuria/ no flank pain. Nocturia once End- no polyuria, no dysuria. No heat or cold intolerance Heme - denies bleeding from any site Neuro: negative for focal numbness or weakness, or syncope. PSYCHIATRIC: negative for mood disorder - has a great support systmem with fiancy . The remainder of the ROS was negative. PAST MEDICAL HISTORY Diagnosis Date Breast cancer (HCC) 04/02/2023 Completed therapy. On Estrogen jay therpay PAST SURGICAL HISTORY Procedure Laterality Date INSERTION OR REPLACEMENT OF BREAST IMPLANT ON SEPARATE DAY FROM MASTECTOMY BILATERAL Bilateral 10/28/2023 FAMILY HISTORY Adopted: Yes Meds: 0.9 % sodium chloride (NACL 0.9%) infusion amikacin (AMIKIN) 500 mg/2 mL soln anastrozole (ARIMIDEX) 1 mg tablet Take 1 mg by mouth. ELIQUIS 5 mg tab(s) Take 5 mg by mouth. carvedilol (COREG) 12.5 mg tablet Take 12.5 mg by mouth. cyanocobalamin (VITAMIN B-12) 1,000 mcg tab Take 1,000 mcg by mouth. cyclobenzaprine (FLEXERIL) 10 mg tablet Take 1 tablet by mouth every evening. diazePAM (VALIUM) 5 mg tablet Take 1 tablet (5 mg total) by mouth every 12 (twelve) hours as needed for anxiety or muscle spasms (Give 30min prior to dressing change) for up to 10 days for anxiety folic acid 1 mg tablet Take 1 mg by mouth. gabapentin (NEURONTIN) 300 mg capsule Take 300 mg by mouth. hydrOXYzine HCl (ATARAX) 25 mg tablet Take 25 mg by mouth. imipenem/cilastatin sodium (IMIPENEM-CILASTATIN INTRAVENOUS) Inject 1,000 mg intravenously. magnesium oxide 400 mg magnesium tab Take 400 mg by mouth. omadacycline (NUZYRA) 150 mg tablet Take 300 mg by mouth. oxyCODONE IR (ROXICODONE) 10 mg tab Take 1 tablet by mouth every 6 hours as needed. oxyCODONE IR (ROXICODONE) 5 mg immediate release tablet Take 1 tablet (5 mg total) by mouth every 4 hours as needed for pain for up to 7 days. Max Daily Amount 30 mg potassium chloride (K-TAB) 10 mEq tablet TAKE TWO TABLETS BY MOUTH TWICE A DAY prochlorperazine (COMPAZINE) 10 mg tablet pyridoxine, vitamin B6, (VITAMIN B6) 50 mg tablet Take 50 mg by mouth. spironolactone (ALDACTONE) 25 mg tablet Take 25 mg by mouth. CLOFAZIMINE, BULK, MISC Take 100 mg by mouth. FEROSUL 325 mg (65 mg iron) tablet Take 1 tablet by mouth two times a day with meals. ALLERGIES Allergen Reactions Meperidine Other: See Comments, Rash, Swelling Other Reaction(s): Other, Unknown Vancomycin Other: See Comments Other Reaction(s): Other Intolerance: experienced acute kidney injury during a hospitalization, suspected due to vancomycin. Acute Kidney Injury Tetracycline Rash Adhesive Rash Ceftaroline Fosamil Other: See Comments Daptomycin Other: See Comments Other Reaction(s): Flushing Doxycycline Rash PHYSICAL EXAMINATION Last Temp 07/21/24 : 36.8 C (98.3 F) GEN: NAD HEENT anicteric Chest: L mastectomy site- wound is almost healed. Center with granulation tissue and edges with sinus tract DIAGNOSTICS REVIEWED COAG: No results found for: INR BMP: Potassium (mmol/L) Date Value 06/12/2024 3.8 Microbiology: # AFB cx 11/27/23: M abscessus # AFB cx 02/26/24: M abscessus # AFB cx 05/02/24: M abscessus IMPRESSION / PLAN Ike Flannery is a 53 year old female history of hypertension, anemia, LLE DVT on Eliquis, R breast cancer 04/2023 s/p chemo x16 to till September 28/2024 followed by bilateral mastectomy with bilateral putty mixer placement, complicated by large L side large seroma. - 10/2023 bilateral skin sparing mastectomies and tissue explander reconstruction complicated by infected seroma L side - 11/27/2023 : Left breast I&D and putty mixer removal - 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 Treated by ID (Dr Noguera) with Amikacin 750 mg MWF, Imipenem 1 g Q12H, and Omadacycline 300 mg daily - s/p R chest wall radiation - 02/26/2024: I&D debridement and excision of infected seroma cavity on the left central breast with secondary closure, OR cx w/ M abscessus - 03/21/2024: L breast I&D with adjancent tissue transfer reconstruction complicated by dehiscence and mediport exposure requiring another I&D and Mediport removal on 05/02/2024 - exam on 06/01/24: Left breast wound measuring 14 x 3 cm with approximately 6 cm tunneling towards the previous port site proximally. Depth is 3/4 cm. The wound bed is healthy with granulation tissue. No surrounding erythema or necrosis. No purulent drainage. - 06/10/2024 breast cellulitis requiring another debridement on 06/14/2024- Now healed about 90% with some areas of fistulization around the edge. Current abx regimen Amika- Started on Apr to current- 750 TID Inimepen 1g q12hrs from start day Oct to currently Omadacycline 300mg/d April 2024 till currently Clofaz 100mg q24h since (A31.1) 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: wound continue current ab regimen and repeat skin debridement till no new sinus tract formation. Duration of therapy - till wound healing - may take another 3-6 months If cx grows M abscessus again I wound contact Dr Sanchez ([facility] for dual b lactam synergy test) I called Dr Herman Lui at [facility] and discussed plans with him. RTC as needed Krystin Barillas MD documented in this encounter [facility] 07-18-2024 Miscellaneous Notes Spoke to patient Surgery time change on 07/21. Pt stated that she cannot do this due to her having an appointment at [facility] for her bladder cancer. PT stated that she was wondering if she even actually needed surgery because she thinks her breast is looking better and feeling better. Pt is going to send pictures through [employer] and I told her I would be sending the pictures to Dr. Gross as well. documented in this encounter [facility] 07-18-2024 Telephone encounter Note Spoke to patient Surgery time change on 07/21. Pt stated that she cannot do this due to her having an appointment at [facility] for her bladder cancer. PT stated that she was wondering if she even actually needed surgery because she thinks her breast is looking better and feeling better. Pt is going to send pictures through [employer] and I told her I would be sending the pictures to Dr. Gross as well. [facility] 07-15-2024 Instructions Formatting of th is note might be different from the original. Your surgery/procedure is scheduled at [facility] on 07-19-24 at 4:15 pm Arrival Time 2:15 pm [facility] Address: [address] [place] [address], [address] [place] [address] in the Emergency Center Parking lot. Report to the front end loader operator in the Emergency/Surgery Registration lobby of the hospital. Notify your SURGEON if you develop any illness such as a cold, cough, fever, sore throat, vomiting or are hospitalized between now and your surgery. Please call Pre-Admission Clinic at [phone] if you have any questions prior to surgery. For questions the morning of surgery, call the Pre-op Department at [phone]. Medication Instructions (Do not stop your medications without consulting the prescribing physician). Take the following medications the morning of surgery with a sip of water: carvedilol and gabapentin Diabetic or Weight loss medications: na Take inhalers as prescribed the morning of [...] CBD oil 48 hours prior to surgery. What do I do the day of [...] liquids with solids or pulp in it What do I need to do to [...] [facility], please call [address] [place] [address] ([phone]). Do not use lotions, creams, powders, perfume, make up, cologne or after-shaves day of surgery. Remove ALL jewelry including wedding rings, body piercings, hair extensions that contain metal, nail malagasy, make-up, and contact lens. You may brush your teeth the morning of surgery, but do not swallow the water. Wear your dentures and partial plates to the hospital (no adhesive). Shower the night the before and morning of surgery with an antibacterial soap. Please be advised, [facility] has transitioned to a cashless payment [...] RIGHTS AND RESPONSIBILITIES As a patient at [facility], you have the right to: Receive medical care and be informed of who is taking care of you Be treated with dignity and respect Have a family member/registration representative of choice and your physician notified of your admission Receive information and actively participate in decisions about your care and treatment Refuse care, treatment and services Decide who may provide your support and speak for you Access orthodoxy and spiritual services Participate in ethical issues [...] of hospital charges and payment methods Patient/patient registration representative responsibilities are to: Provide information about health status to facilitate care, treatment and services Follow the treatment, plan, keep appointments and speak up when you do not understand the plan Respect the rights of other patients and healthcare personnel Follow organizational rules and regulations that support quality care and a safe environment Fulfill financial obligations as promptly as possible [facility] 07-15-2024 Miscellaneous Notes Your surgery/procedure is scheduled at [facility] on 07-19-24 at 4:15 pm Arrival Time 2:15 pm [facility] Address: [address] [place] [address], [facility] in the Emergency Center Parking lot. Report to the front end loader operator in the Emergency/Surgery Registration lobby of the hospital. Notify your SURGEON if you develop any illness such as a cold, cough, fever, sore throat, vomiting or are hospitalized between now and your surgery. Please call Pre-Admission Clinic at [phone] if you have any questions prior to surgery. For questions the morning of surgery, call the Pre-op Department at [phone]. Medication Instructions (Do not stop your medications without consulting the prescribing physician). Take the following medications the morning of surgery with a sip of water: carvedilol and gabapentin Diabetic or Weight loss medications: na Take inhalers as prescribed the morning of [...] weekly, hold 1 week prior to surgery: Stuunediero . Blood thinners: Please contact your prescribing [...] CBD oil 48 hours prior to surgery. What do I do the day of [...] liquids with solids or pulp in it What do I need to do to [...] would like to schedule therapy at a [facility] facility, please call [phone] ([phone]). Do not use lotions, creams, powders, perfume, make up, cologne or after-shaves day of surgery. Remove ALL jewelry including wedding rings, body piercings, hair extensions that contain metal, nail malagasy, make-up, and contact lens. You may brush your teeth the morning of surgery, but do not swallow the water. Wear your dentures and partial plates to the hospital (no adhesive). Shower the night the before and morning of surgery with an antibacterial soap. Please be advised, [facility] has transitioned to a cashless payment system. [...] RIGHTS AND RESPONSIBILITIES As a patient at [facility], you have the right to: Receive medical care and be informed of who is taking care of you Be treated with dignity and respect Have a family member/registration representative of choice and your physician notified of your admission Receive information and actively participate in decisions about your care and treatment Refuse care, treatment and services Decide who may provide your support and speak for you Access orthodoxy and spiritual services Participate in ethical issues [...] of hospital charges and payment methods Patient/patient registration representative responsibilities are to: Provide information about [...] promptly as possible documented in this encounter [facility] 07-14-2024 History of Present illness Narrative [address] [facility] [id number] Patient: Ike Flannery Date of : 1970 Encounter Date: 07/14/2024 History of Present Illness: The patient is a 53 y.o. female, an established patient, and is here for Chief Complaint Patient presents with Follow-up . HPI Patient was diagnosed with right breast cancer, estrogen receptor positive in April of 2023. She has had 16 chemotherapy treatments and 16 radiation treatments after her double mastectomy. 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 She has not had a breast reconstruction due to this complicated infection. She has also developed a DVT on the left lower extremity and is on Eliquis. She has also developed a right retinal tear. Next week she has a liver biopsy for possible metastasis. Her oncologist wants her to see [facility] Infectious Disease team that specializes in mycobacteria. She is undecided regarding this. She is under a high amount of stress with all of this complicated personal medical history as well as her brother recently committed suicide. Her mother has recently fallen at gnosticism and developed a CVA and now lives with both her and her partner. She is also being followed by her regular coater who performed a hysterectomy but saw something during surgery on her pelvis. He did not obtain a biopsy but her oncology team feels this is secondary to her breast cancer with possible liver mets at this time. Patient has strong danish and a strong support system and feels she is coping well despite her current situation. She is on social security disability and unemployment and she qualifies for Medicare next year. Her oncologist is concerned with her high BPs since starting one of the new antibiotic therapies for her mycobacterium infection. He wanted her beta-jay and spironolactone restarted and gave her a temporary refill. These were previously discontinued due to her ongoing medical problems. Her systolic blood pressures have been in the 150-170s before starting the medications and have improved greatly since restarting. She does have a blood pressure cuff at home and plans to keep track. Her right cardiac cath for pulmonary HTN on ECHO (ECHO not in system) from Oct, 2023 was reviewed showing no pulmonary HTN, increased cardiac output r/t anemia. Problem List Items Addressed This Visit Other Malignant neoplasm of lower-inner quadrant of right breast of female, estrogen receptor positive ([facility]) - Primary Mycobacterium abscessus infection Other Visit Diagnoses Essential hypertension Relevant Medications spironolactone (ALDACTONE) 25 mg tablet Acute deep vein thrombosis (DVT) of calf muscle vein of left lower extremity ([facility]) S/P right heart catheterization Past Medical, Family, and Social History Update: The following portions of the patient's history were reviewed and updated as appropriate: allergies, current medications, past family history, past medical history, past social history, past surgical history and problem list. Past Medical History: Diagnosis Date MIRNA (acute kidney injury) from vancomycin Breast cancer ([facility]) 2023 mammary carcinoma Breast wound left Deep vein thrombosis ([facility]) 09/18/2023 Left calf Dental disease one permanent crown History of chemotherapy History of radiation therapy Hypertension Knee pain Liver lesion 06/2024 Mycobacterial infection PONV (postoperative nausea and vomiting) scop patch has helped in the past Port-A-Cath in place 05/13/2023 Visual impairment Glasses Past Surgical History: Procedure Laterality Date ARTHROSCOPIC REPAIR ACL Right 2006 ARTHROSCOPIC REPAIR ACL Left 08/26/2021 BREAST BIOPSY Right 2023 mammary carcinoma CLOSURE WOUND MIDSECTION- BREAST Left 02/26/2024 Performed by Jhon Gross MD at [facility] DEBRIDEMENT OF LEFT CEST WALL WOUND Left 05/04/2024 Performed by Jhon Gross MD at [facility] EXCISION LYMPH NODE AXILLARY DISSECTION Right 10/28/2023 Performed by Christy He MD at [facility] EXCISION OF REDUNDANT INFECTED LEFT CHEST WALL TISSUE WITH PRIMARY CLOSURE Left 03/21/2024 Performed by Jhon Gross MD at [facility] HYSTERECTOMY 2006 IMMEDIATE BREAST RECONSTRUCTION WITH TISSUE CARD MOUNTER PLACEMENT Bilateral 10/28/2023 Performed by Jhon Gross MD at [facility] INCISION AND DRAINAGE/DEBRIDEMENT OF LEFT BREAST WOUND Left 05/02/2024 Performed by Jhon Gross MD at [facility] INCISION DRAINAGE BREAST Left 11/27/2023 Performed by Jhon Gross MD at [facility] INCISION DRAINAGE BREAST (WASHOUT) Left 02/26/2024 Performed by Jhon Gross MD at [facility] INCISION DRAINAGE CHEST WALL INFECTION Left 06/13/2024 Performed by Jhon Gross MD at [facility] LIVER BIOPSY 07/11/2024 IR MAGNETIC SEED LOCALIZATION EXCISION/BIOPSY MASS BREAST (MAG SEED LOCALIZED TARGETED DISSECTION FOR RETRIEVAL OF PREVIOUSLY CLIPPED LYMPH NODE) Right 10/28/2023 Performed by Christy He MD at [facility] MASTECTOMY BREAST SIMPLE RISK REDUCING SKIN SPARING Left 10/28/2023 Performed by Christy He MD at [facility] MASTECTOMY BREAST SIMPLE SKIN SPARING Right 10/28/2023 Performed by Christy He MD at [facility] MENISCECTOMY Bilateral 2022 PORTACATH PLACEMENT Left left chest REMOVAL CARD MOUNTER TISSUE BREAST Left 11/27/2023 Performed by Jhon Gross MD at [facility] REMOVAL PORT A CATH Left 05/02/2024 Performed by Jhon Gross MD at [facility] RIGHT AXILLARY PROPHYLACTIC BYPASS LYMPHOVENOUS Right 10/28/2023 Performed by Jhon Gross MD at [facility] TONSILLECTOMY AND ADENOIDECTOMY Age 3 TUMOR REMOVAL back-benign Current Outpatient Medications Medication Sig Dispense Refill anastrozole (ARIMIDEX) 1 mg chemo tablet Take 1 tablet by mouth daily Breast cancer CLOFAZIMINE, BULK, MISC Take 100 mg by mouth in the morning. Capsule for mycobacterial infection. cyanocobalamin 1000 MCG tablet Take 1 tablet (1,000 mcg total) by mouth in the morning. (Patient taking differently: Take 1 tablet (1,000 mcg total) by mouth in the morning. Indications: prevention of vitamin B12 deficiency.) 90 tablet 3 cyclobenzaprine (FLEXERIL) 10 mg tablet TAKE ONE TABLET BY MOUTH ONCE DAILY IN THE EVENING 30 tablet 11 ELIQUIS 5 mg tablet Take 1 tablet (5 mg total) by mouth in the morning and 1 tablet (5 mg total) before bedtime. Indications: blood clot in a deep vein of the extremities. Blood clot left leg 08/2023. gabapentin (NEURONTIN) 300 mg capsule Take 1 capsule (300 mg total) by mouth in the morning and at bedtime Indications: neuropathic pain. hydrOXYzine (ATARAX) 25 mg tablet Take 1 tablet (25 mg total) by mouth 3 (three) times a day as needed for itching. 60 tablet 1 imipenem-cilastatin 1,000 mg in sodium chloride 0.9 % 250 mL IVPB Infuse 1,000 mg into a venous catheter every 12 (twelve) hours for 90 days. magnesium oxide 400 mg magnesium tablet Take 400 mg by mouth in the morning. Indications: low amount of magnesium in the blood. naloxone (NARCAN) 4 mg/actuation spray,non-aerosol nasal spray Administer 1 spray (4 mg total) into alternating nostrils as needed for opioid reversal. 1 each 0 omadacycline 150 mg tablet Take 300 mg by mouth in the morning. potassium chloride (KLOR-CON ORAL) Take 20 mEq by mouth in the morning and 20 mEq before bedtime. Indications: low amount of potassium in the blood. prochlorperazine (COMPAZINE) 10 mg tablet pyridoxine, vitamin B6, (B-6) 50 mg tablet Take 1 tablet (50 mg total) by mouth in the morning. amikacin (AMIKIN) 500 mg/2 mL injection carvediloL (COREG) 12.5 mg tablet Take 1 tablet (12.5 mg total) by mouth in the morning and 1 tablet (12.5 mg total) before bedtime. 180 tablet 1 spironolactone (ALDACTONE) 25 mg tablet Take 1 tablet (25 mg total) by mouth in the morning. 90 tablet 1 VERZENIO 150 mg chemo tablet Take 1 tablet by mouth 2 (two) times a day Holding currently as of 05/12/2024 (Patient not taking: Reported on 07/14/2024) No current facility-administered medications for this visit. (All medications reviewed and updated by provider since last office visit or hospitalization) Allergies: Meperidine, Vancomycin, Adhesive, Ceftaroline fosamil, Daptomycin, Doxycycline, and Tigecycline Tobacco History: Social History Tobacco Use Smoking Status Never Passive exposure: Past Smokeless Tobacco Never (If patient a smoker, smoking cessation counseling offered) Social History: Social History Substance and Sexual Activity Alcohol Use Yes Comment: Socially Review of Systems: Review of Systems Constitutional: Positive for activity change, appetite change, fatigue and unexpected weight change. Negative for fever. Respiratory: Negative. Cardiovascular: Negative. Skin: Positive for color change and wound. Psychiatric/Behavioral: Negative. Physical Exam: Pulse 66 Temp 36.6 C (97.9 F) (Oral) Resp 18 Ht 180.3 cm (5' 11 ) Wt 87.8 kg (193 lb 9.6 oz) SpO2 99% BMI 27.00 kg/m Physical Exam Vitals reviewed. Constitutional: Appearance: Normal appearance. HENT: Head: Normocephalic and atraumatic. Right Ear: Ear canal and external ear normal. A middle ear effusion is present. Left Ear: Tympanic membrane, ear canal and external ear normal. Nose: Congestion and rhinorrhea present. Rhinorrhea is clear. Right Turbinates: Enlarged. Mouth/Throat: Mouth: Mucous membranes are moist. Eyes: Pupils: Pupils are equal, round, and reactive to light. Cardiovascular: Rate and Rhythm: Normal rate and regular rhythm. Heart sounds: Normal heart sounds. Pulmonary: Breath sounds: Normal breath sounds. Abdominal: General: Bowel sounds are normal. Palpations: Abdomen is soft. Tenderness: There is no abdominal tenderness. Musculoskeletal: Right lower leg: Edema present. Left lower leg: No edema. Lymphadenopathy: Cervical: Cervical adenopathy (slightly tender tonsillar lymph right) present. Skin: General: Skin is warm. Capillary Refill: Capillary refill takes less than 2 seconds. Neurological: General: No focal deficit present. Mental Status: She is alert and oriented to person, place, and time. Psychiatric: Mood and Affect: Mood normal. Affect is tearful. Behavior: Behavior normal. Thought Content: Thought content normal. Judgment: Judgment normal. Assessment and Plan: Ike was seen today for follow-up. Diagnoses and all orders for this visit: Malignant neoplasm of lower-inner quadrant of right breast of female, estrogen receptor positive (CMS-HCC) Mycobacterium abscessus infection Essential hypertension Acute deep vein thrombosis (DVT) of calf muscle vein of left lower extremity (CMS-HCC) S/P right heart catheterization Other orders - spironolactone (ALDACTONE) 25 mg tablet; Take 1 tablet (25 mg total) by mouth in the morning. - carvediloL (COREG) 12.5 mg tablet; Take 1 tablet (12.5 mg total) by mouth in the morning and 1 tablet (12.5 mg total) before bedtime. Follow-up: We will plan to re-start a B-Jay, but will switch to Coreg 12.5 BID for better BP control. Refill Aldactone - pt cautioned this is a potassium-sparing diuretic and she is taking a potassium supplement. She states her medical team is checking her potassium quite frequently and she is generally on the low side of normal. Her oncologist is aware that she is on spironolactone and supplemental potassium.- she will continue to track her blood pressures at home and report any adverse side effects to me. It was recommended that she complete all routine immunizations as she is immunocompromised. She will inquire about Shingrix vaccine, COVID booster and pneumonia vaccine with her oncologist. We will continue to follow specialist's notes in regards to upcoming liver biopsy. She may need to stay on the Eliquis long-term - her oncologist recommended at least 1 year. See above for review of right heart catheterization in 2023. Follow up in 1 year as needed if blood pressures remain above goal of less than 130/80. AMEENA GARCIA APRN-CNP 07/18/24 1018 documented in this encounter [facility] 07-13-2024 Miscellaneous Notes SPOKE WITH PATIENT Pt aware of surgery on 07/19 at PAT phone call on 07/15 documented in this encounter [facility] 07-13-2024 Telephone encounter Note SPOKE WITH PATIENT Pt aware of surgery on 07/19 at PAT phone call on 07/15 [facility] 07-11-2024 Miscellaneous Notes Called patient. Let her know Dr. Gross's recommendations of debridement of left breast wound this week under MAC. She is agreeable. Discussed our project controls scheduler will reach out to her with date and time. documented in this encounter [facility] 07-11-2024 Telephone encounter Note Called patient. Let her know Dr. Gross's recommendations of debridement of left breast wound this week under MAC. She is agreeable. Discussed our project controls scheduler will reach out to her with date and time. [facility] Work Phone: 07-11-2024 History of Present illness Narrative Images from the original note were not included. [facility] Plastic & Reconstructive Surgery [address] Office Jhon Gross MD, PhD AMEENA Kennedy PA-C Plastic Surgery Progress Note Reason for visit : post-op History of present illness: Ike Flannery is a 53 y.o. female with a history of right breast cancer status post bilateral skin sparing mastectomies (He) and tissue putty mixer reconstruction in 10/28/2023. Her postoperative course was complicated by an infected seroma of her left breast requiring operative washout and tissue putty mixer removal 11/27/23. Intraoperative cultures demonstrated growth of [...] her left breast with removal of her port a catheterization. Patient was previously evaluated in our office on 05/18/2024. She states after last office appointment she was admitted to the due to complications with her IV antibiotics. She was discharged in stable condition. Patient again was admitted to the hospital for concerns or left chest erythema on 06/10/24. Our service was consulted and she underwent I&D of her left chest wall infection on 06/13/24. Her intraoperative cultures were again postive for AFB. She was discharged home in stable condition on 06/16/24. Infectious disease has been managing her IV ABX. She recently had a PET scan which revealed a liver lesion. She is awaiting consult at [facility] for IR guided biopsy as well as consult at the mycobacterium clinic at [facility]. She presents to the office today for wound check. She states that she is healing well. She has continued with b.i.d. wet-to-dry dressing changes. She did just undergo her liver biopsy earlier today. Results pending. The patient is doing well postoperatively. The [...] mood/affect full range. Focused examination : Left chest wound present. [place] granulation tissue present. Wound is 14 cm x 4-1/2 cm and approximately 0.5 cm in depth. Blister present to medial portion of wound. No surrounding erythema. No necrotic tissue noted. No purulent drainage. Impression: 1. Encounter for postoperative care 2. Breast wound, left, sequela 3. S/P breast reconstruction, bilateral 4. Mycobacterium abscessus infection Recommendations: Discussed with patient that I am going to review photos with Dr. Gross. Discussed in the interim continue with b.I.d. wet-to-dry dressing changes. Continue IV antibiotics per Infectious Disease. She does have follow-up scheduled on Thursday with [facility]. Continue with that scheduled appointment. Continue to monitor for any sign of infection. Follow up with our office next week for clinical check. Advised to call the office any questions or concerns in the interim. Please note that portions of this note were generated using voice recognition [employer] dictation software. Although every effort was made to ensure the accuracy of this automated control panel operator crude unit, some errors in control panel operator crude unit may have occurred. 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 Here to discuss clofazamine, has been approved by IRB, FDA and [employer]. Consent signed and reviewed with Avi Tobar [facility], patient and myself. Updated Consent reviewed and signed on 05/20/24 Everyday, Thursday-Thursday for 20 days Radiation therapy- completed Keytruda currently held Oopherectomy On anastrozole. 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 Clofazimine JOSÉ MIGUEL remains <= 0.5 Imipenem remains at JOSÉ MIGUEL of 16 No JOSÉ MIGUEL creep noted. There is an additional culture from 03/21/24 that is pending, has been sent to [facility] for further work up. Awaiting those results as well. 05/20/2024 Wound vac to be placed soon on her left chest Currently on IV Amikacin, imipenem, ceftaroline, PO clofazimine. on Fibroid? PET scan in two weeks, plan on full body Allergy referrral: Tentative plan for omadacycline. Verzenio, just a week and then held. Narcan kit given, clofazimine can increase serum level of oxycodone 06/30/2024 STOPPED CEFTAROLINE BECAUSE OF DRUG FEVER AMIKACIN STOPS 07/22/24 ADD BACK TEDIZOLID, INITIALLY STOPPED BECAUSE OF THROMBOCYTOPENIA STARTED OMADACYCLINE DUE FOR 3 MONTH EKG FOR CLOFAZIMINE AROUND 07/19 Antibiotics Imipenem: 12/05/2023 to present Ciprofloxacin:12/04/2024 to 12/11/2023 Clarithromycin 12/05/2023 to 01/15/2024 Linezolid 12/11/2023 to 01/01/2024 Tedizolid 01/02/2024 to 05/10/2024 Clofazimine 02/15/2024 to present Amikacin 04/15/2024 to present Ceftaroline 05/12/2024 to 05/26/2024 Omadacycline 05/27/2024 to present Recommendations: PO Tedizolid 200mg once daily-stopped Continue clofazamine 100mg once daily, started on 02/14 Continued Addition of IV ceftaroline 600mg TID-STOPPED Imipenem has been extended and redosed 1g q12hrs with improved renal function Amikacin (STARTED 04/15/24) continued 3 times a week, current dose 750mg, with goal peak 30-35 Will need monitoring labs and 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 Subjective History of Present Illness: She was [facility] from 05/02 to 05/13. I had discussed with patient's plastic surgeon Dr. Gross that I was concerned about her left chest port and her continuing wound from the left breast area. After her appointment with me patient had sent in pictures of the wound dehiscing. I forwarded these pictures and my concerns to Dr. Gross's office who promptly had patient admitted to [facility] for left Mediport removal and additional debridement. While there she was continued on her IV amikacin, p.o. tedizolid, and oral clofazimine. She is initially receiving clofazimine at a lower dose of 50 mg however this was later corrected and she received her appropriate dose of 100 mg daily. Hospital course was complicated by significant cytopenias specifically low white count and thrombocytopenia I discussed with the ID pharmacist at [facility] tedizolid was discontinued and ceftaroline 600 mg 3 times daily was started. She had a significant number of debridements done during this hospital stay on 05/02 she had removal of her Mediport at that time she was found to have several open wounds along the left inframammary incision 1 x 2.5 cm medially, 2 x 7 cm centrally and 2 x 4 cm laterally. Debrided nonviable skin, subcutaneous tissue, muscle fascia and granulation tissue. Entire wound base contained fingerlike extensions throughout the subcutaneous tissue layer of chronic granulomatous tissue consistent with known Mycobacterium abscessus infection. Open wounds along the left inframammary incision directly communicated with the left upper chest wall chemotherapy port. Port removed and tip was sent for culture (notably tip culture was only held for a f (more content not included)... [facility] 06-30-2024 Note On 06/29/24, under th e advice of Dr. Herman Lui, I called [facility]. Spoke to blood bank laboratory professional working at [employer] [facility] bench and clarified that Fungal Culture of Tissue Left Breast (collected date 06/13/24) ordered by plastic surgeon Dr. Gross had not been sent yet to [facility] for additional testing since the same Mycobacterium abscessus speciation grew. Since imipenem/cilastatin and clofazimine MICs must be monitored and trended, I requested the [facility] laboratory to send the Fungal Culture to [facility], and the lab confirmed that they would do so. Anticipate that preliminary culture results (at least line probe assay findings, which may include if there are aminoglycoside drug resistance markers) may be available in a few weeks. Follow up will be needed as appropriate to obtain these preliminary results and then the finalized susceptibilities. Avi Tobar, PharmD, BCPS; Clinical Research Pharmacist [facility] 06-30-2024 Note [id number] Theresa Flannery 1970 F Date Provider Department Center 06/30/2024 [id number]-[address] [facility] Family History Adopted: Yes Problem Relation Age of Onset Heart attack Father Family Status - Relation Status Age at Father [facility] 06-29-2024 History of Present illness Narrative [facility] [address] Office Jhon Gross MD, PhD Marisela Cuevas APRN-ESPERANZA Small[place] PA-C Plastic Surgery Progress Note Reason for visit : post-op History of present illness: Ike Flannery is a 53 y.o. female with a history of right breast cancer status post bilateral skin sparing mastectomies (He) and tissue putty mixer reconstruction in 10/28/2023. Her postoperative course was complicated by an infected seroma of her left breast requiring operative washout and tissue putty mixer removal 11/27/23. Intraoperative cultures demonstrated growth of [...] her left breast with removal of her port a catheterization. Patient was previously evaluated in our office on 05/18/2024. She states after last office appointment she was admitted to the due to complications with her IV antibiotics. She was discharged in stable condition. Patient again was admitted to the hospital for concerns or left chest erythema on 06/10/24. Our service was consulted and she underwent I&D of her left chest wall infection on 06/13/24. Her intraoperative cultures were again postive for AFB. She was discharged home in stable condition on 06/16/24. Infectious disease has been managing her IV ABX. She recently had a PET scan which revealed a liver lesion. She is awaiting consult at [facility] for IR guided biopsy as well as consult at the mycobacterium clinic at [facility]. She presents our office today for wound check of her left chest. She has continued with wet-to-dry dressing changes. She believes that the wound is improving. She denies any surgical site concerns today. The patient denies fever, chills, redness or drainage from surgical wound(s). Review of Systems: Denies surgical site concerns. All other symptoms negative except as noted in HPI. Physical Examination: Vitals: 06/29/24 1429 BP: (!) 168/113 Pulse: 84 Resp: 14 Temp: 36.3 C (97.4 F) Body mass index is 26.36 kg/m . GENERAL: no acute distress, well developed, well nourished. LYMPHATIC: no upper extremity lymphedema NEUROLOGIC: alert and oriented to time, place and person. PSYCH: judgement and insight good, mood/affect full range. Focused examination : Left chest wound present. Wound is 15 cm x 7 cm and approximately 0.5 cm of depth. [place] granulation tissue is present to wound bed. No yellow fibrinous tissue. No purulent drainage. Impression: 1. Encounter for postoperative care 2. Seroma of breast 3. Breast wound, left, sequela 4. Mycobacterium abscessus infection 5. S/P breast reconstruction, bilateral Recommendations: Discussed with patient that her wound is continuing to heal. Discussed continuing with wet-to-dry dressing changes. Continue with her scheduled liver biopsy next week. Continue with IV antibiotics per Infectious Disease. She was scheduled follow-up with [facility] regarding her mycobacterium infection. Follow up next week for a clinical check. She was advised to call the office with any questions or concerns in the interim. - AMEENA Rand 06/29/24 4:21 PM Please note that portions of this note were generated using voice recognition [employer] dictation software. Although every effort was made to ensure the accuracy of this automated control panel operator crude unit, some errors in control panel operator crude unit may have occurred. AMEENA Kennedy 06/29/24 1622 documented in this encounter [facility] 06-29-2024 History of Present illness Narrative She had her most recent PET scan which shows suspicion for persistent disease, she is having a biopsy next week. She also has an appointment with [facility] on the and the with Medical Oncology and Infectious Disease. We discussed following up after those visits to confirm a treatment plan. documented in this encounter [facility] 06-24-2024 Miscellaneous Notes Patient called she wanted to know if you had a chance to talk to dr gross yet if he was going to transfer her care to [facility] yet or not, she said if you had not she was planning to come in and see you on Thursday. If she forgot to mention it. Called patient back. LM for patient. We are still managing the patients wound and breast reconstruction. documented in this encounter [facility] 06-24-2024 Telephone encounter Note Patient called she wanted to know if you had a chance to talk to dr gross yet if he was going to transfer her care to [facility] yet or not, she said if you had not she was planning to come in and see you on Thursday. If she forgot to mention it. [facility] 06-24-2024 Telephone encounter Note Called patient back. LM for patient. We are still managing the patients wound and breast reconstruction. [facility] Work Phone: 06-22-2024 History of Present illness Narrative Images from the original note were not included. [facility] Plastic & Reconstructive Surgery [address] Office Jhon Gross MD, PhD AMEENA Kennedy PA-C Plastic Surgery Progress Note Reason for visit : post-op History of present illness: Ike Flannery is a 53 y.o. female with a history of right breast cancer status post bilateral skin sparing mastectomies (He) and tissue putty mixer reconstruction in 10/28/2023. Her postoperative course was complicated by an infected seroma of her left breast requiring operative washout and tissue putty mixer removal 11/27/23. Intraoperative cultures demonstrated growth of [...] her left breast with removal of her port a catheterization. Patient was previously evaluated in our office on 05/18/2024. She states after last office appointment she was admitted to the due to complications with her IV antibiotics. She was discharged in stable condition. Patient again was admitted to the hospital for concerns or left chest erythema on 06/10/24. Our service was consulted and she underwent I&D of her left chest wall infection on 06/13/24. Her intraoperative cultures were again postive for AFB. She was discharged home in stable condition on 06/16/24. Infectious disease has been managing her IV ABX. She recently had a PET scan which revealed a liver lesion. She is awaiting consult at [facility] for IR guided biopsy as well as consult at the mycobacterium clinic at [facility]. She presents to our office today for a wound check and dressing change. She states that she is doing well. She is having no issues packing her wound at home. She believes that the wound is actually improving in size. She denies any fevers or chills. Denies any purulent drainage. The patient is doing well postoperatively. The patient denies fever, chills, redness or drainage from surgical wound(s). Review of Systems: Denies surgical site concerns. All other symptoms negative except as noted in HPI. Physical Examination: Vitals: 06/22/24 1510 BP: (!) 141/95 Pulse: Resp: Body mass index is 26.36 kg/m . GENERAL: no acute distress, well developed, well nourished. LYMPHATIC: no upper extremity lymphedema NEUROLOGIC: alert and oriented to time, place and person. PSYCH: judgement and insight good, mood/affect full range. Focused examination : Left chest wound clean, dry and intact. No surrounding erythema. No necrosis is noted. Wound with pink granulation tissue. No yellow fibrinous tissue or necrosis is present. No purulent drainage. Impression: 1. Encounter for postoperative care 2. Breast wound, left, sequela Recommendations: Discussed with patient continuing with b.I.d. wet-to-dry dressing changes. Will review with Dr. Gross future plans for her wound. Continue with IV antibiotics per Infectious Disease. She does have consultation scheduled with [facility] bio bacteria clinic scheduled. She also has IR biopsy of her liver lesion scheduled. Follow up next week for wound check. She was advised to call the office any questions or concerns in the interim. - AMEENA Rand 06/22/24 4:36 PM Please note that portions of this note were generated using voice recognition [employer] dictation software. Although every effort was made to ensure the accuracy of this automated control panel operator crude unit, some errors in control panel operator crude unit may have occurred. AMEENA Kennedy 06/22/24 [id number] documented in this encounter [facility] 06-20-2024 Miscellaneous Notes Positive AFB Fungal Culture- Left Breast From June 13, 2024 documented in this encounter [facility] 06-20-2024 Telephone encounter Note Positive AFB Fungal Culture- Left Breast From June 13, 2024 [facility] 06-20-2024 Note HNO ID: [id number] Author: KESHA APPLE MD Service: ? Author Type: Physician Type: Progress Notes Filed: 06/20/2024 16:05 Note Text: Reason for consult: breast infection Referring provider: TATI King, no contact phone number Case reviewed: 53-year-old woman with: # hypertension # chronic anemia # left lower extremity DVT on Eliquis # right breast cancer s/p bilateral skin-sparing mastectomies and tissue putty mixer reconstruction in 10/2023 (Dr. Jhon Gross), complicated by infected seroma on the left breast s/p tissue putty mixer explant 11/27/23, OR cx w/ M abscessus, follows up with Dr. Carlene Noguera, tx'ed w/ Amikacin 750 mg MWF, Imipenem Cilastin 1 g Q12H, and Omadacycline 300 mg daily # s/p right chest wall post-mastectomy radiation # draining sinus tract on left breast in 01/2024 s/p IANDD 02/26/24 (debridement and excision of infected seroma cavity on the left central breast with secondary closure), OR cx w/ M abscessus # draining sinus tract on left chest wall in 03/2024 s/p IANDD in conjunction with adjacent tissue transfer reconstruction 03/21/24, complicated by dehiscence of infra-mammary incision and left upper chest wall with left Mediport infection requiring another IANDD and removal of Mediport 05/02/2024, wound was left open postoperatively s/p second look # exam on 06/01/24: Left breast wound measuring 14 x 3 cm with approximately 6 cm tunneling towards the previous port site proximally. Depth is 3/4 cm. The wound bed is healthy with granulation tissue. No surrounding erythema or necrosis. No purulent drainage Microbiology: # AFB cx 11/27/23: M abscessus # AFB cx 02/26/24: M abscessus # AFB cx 05/02/24: M abscesssus I have reviewed the available records and referral. Does the patient need to be scheduled? Yes If yes, virtual or in-person? In person If yes, date appointment scheduled? No. Will schedule with NTM group. Please submit and scan all AFB OR cultures with susceptibilities reports from 11/2023 to present for review prior to appointment. Kesha Apple MD June 20, 2024 [facility] 06-20-2024 History of Present illness Narrative Reason for consult: breast infection Referring provider: TATI King, no contact phone number Case reviewed: 53-year-old woman with: # hypertension # chronic anemia # left lower extremity DVT on Eliquis # right breast cancer s/p bilateral skin-sparing mastectomies and tissue putty mixer reconstruction in 10/2023 (Dr. Jhon Gross), complicated by infected seroma on the left breast s/p tissue putty mixer explant 11/27/23, OR cx w/ M abscessus, follows up with Dr. Carlene Noguera, tx'ed w/ Amikacin 750 mg MWF, Imipenem Cilastin 1 g Q12H, and Omadacycline 300 mg daily # s/p right chest wall post-mastectomy radiation # draining sinus tract on left breast in 01/2024 s/p I&D 02/26/24 (debridement and excision of infected seroma cavity on the left central breast with secondary closure), OR cx w/ M abscessus # draining sinus tract on left chest wall in 03/2024 s/p I&D in conjunction with adjacent tissue transfer reconstruction 03/21/24, complicated by dehiscence of infra-mammary incision and left upper chest wall with left Mediport infection requiring another I&D and removal of Mediport 05/02/2024, wound was left open postoperatively s/p second look # exam on 06/01/24: Left breast wound measuring 14 x 3 cm with approximately 6 cm tunneling towards the previous port site proximally. Depth is 3/4 cm. The wound bed is healthy with granulation tissue. No surrounding erythema or necrosis. No purulent drainage Microbiology: # AFB cx 11/27/23: M abscessus # AFB cx 02/26/24: M abscessus # AFB cx 05/02/24: M abscesssus I have reviewed the available records and referral. Does the patient need to be scheduled? Yes If yes, virtual or in-person? In person If yes, date appointment scheduled? No. Will schedule with NTM group. Please submit and scan all AFB OR cultures with susceptibilities reports from 11/2023 to present for review prior to appointment. Kesha Apple MD June 20, 2024 documented in this encounter [facility] 06-16-2024 Miscellaneous Notes Please complete TCM call. Thank you Hospital Discharge Follow Up Call (This is not a billable TCM) Transition of Care (*required) *Additional Questions/Concerns Requiring PCP Follow-Up: - RICHIE HANNA APRN-ESPERANAZ, needs Hospital Follow Up visit scheduled on or before 06/28/24 ... patient may ask for a telehealth visit This documentation is being used for Transition of Care purposes: Yes Goal: Patient will demonstrate a safe transition to her home environment. Diagnosis on Discharge: Principal problem Complicated wound infection Active Problems: Hypertension Mycobacterium abscessus infection PROCEDURES I&D of left chest wall 06/13 Discharge Specialty: Hem/Onc, Infectious Disease, and Other; Plastics *Name of Discharging Facility: [facility], admitted 06/10/24 Date of Facility Discharge: 06/15/24 Date of Interactive Contact and Name of Requirements Manager: 06/16/24 [id number] spoke with patient *Medication Review Completed: No START oxyCODONE 10 MG tablet immediate release tablet Commonly known as: ROXICODONE Take 1 tablet (10 mg total) by mouth every 6 (six) hours as needed for pain for up to 7 days. Max Daily Amount: 40 mg naloxone 4 mg/actuation spray,non-aerosol nasal spray Commonly known as: NARCAN Administer 1 spray (4 mg total) into alternating nostrils as needed for opioid reversal. STOP taking: folic acid 1 mg tablet (FOLVITE) Medication Reconciliation Questions/Concerns: none *Follow Up Appointments with Providers: Primary: AMEENA GARCIA, needs Hospital Follow Up visit scheduled on or before 06/28/24, patient may ask for a telehealth visit Specialty: 06/29/24 [facility], Dr. Sepulveda Specialty: 06/20/24 [facility] Infectious Disease:Dr. Moody Specialty: 07/06/24 [facility]; IR percutaneous biopsy liver Specialty: [facility]; referral placed TBD Specialty: 07/12/24 [facility], Oncology Specialty: Plastic surgery, Jhon Gross MD [phone] TBD Review of Pending Lab/Diagnostic Tests and Plan for Completion: none Assessment and Support of Treatment Regimen Adherence and Medication Management: Dental Assisting Instructor spoke with patient for call. Patient talkative and states she is doing okay. Voices she likes all of her present medical providers in the [facility] but understands why she needs to schedule care at the [facility] so all providers are in one health system/team. She reports she has an appointment on 07/12/24 with oncology at the [facility]. She has not heard from [facility] Infectious disease in response to the referral placed during this last hospital visit. Dental Assisting Instructor educated patient on the need to schedule a PCP hospital follow up visit. She voices she will see when all the other appointments are scheduled, then decide. Dental Assisting Instructor discussed possible telehealth visit with PCP. Patient stated an understanding. Patient's reports her and her fiance perform BID would care to left chest (wet to dry dressing changes with VASHE solution. Cover with ABD pads and secure with ATTILA wrap). States site looks unchanged from when she left the hospital yesterday. Reports pain in wound area is a 6-7, on a 1-10 scale, when she takes oxycodone. Relief to 2-3 is obtained. Narcan is in the home. Reports PICC line is in place and she is managing it and IV antibiotics well. No redness or edema at PICC line site, flushes well. Dental Assisting Instructor reviewed new medications. She has no questions on other meds. She reports no issues with constipation, diarrhea or urination. Eating and drinking without issues No N/V. Education Provided by ACN to Support Self-Management, Independent Living and ADLs: Patient lives with fiance. DME-none ADL's-independent Transportation-self if not taking narcotics SDOH: denies needs Dental Assisting Instructor instructed patient to contact her PCP office for new, worsening or unresolved symptoms. Dental Assisting Instructor instructed patient to call 911 for any chest pain or difficulty breathing. Communication with Home Health Agencies and Other Services Utilized/Needed by the Patient: none documented in this encounter [facility] 06-16-2024 Telephone encounter Note Please complete TCM call. Thank you [facility] 06-16-2024 Telephone encounter Note Hospital Discharge Follow Up Call (This is not a billable TCM) Transition of Care (*required) *Additional Questions/Concerns Requiring PCP Follow-Up: - RICHIE HANNA APRN-APPARATUS ENGINEERING TECHNOLOGIST, needs Hospital Follow Up visit scheduled on or before 06/28/24 ... patient may ask for a telehealth visit This documentation is being used for Transition of Care purposes: Yes Goal: Patient will demonstrate a safe transition to her home environment. Diagnosis on Discharge: Principal problem Complicated wound infection Active Problems: Hypertension Mycobacterium abscessus infection PROCEDURES I&D of left chest wall 06/13 Discharge Specialty: Hem/Onc, Infectious Disease, and Other; Plastics *Name of Discharging Facility: [facility], admitted 06/10/24 Date of Facility Discharge: 06/15/24 Date of Interactive Contact and Name of Requirements Manager: 06/16/24 [id number] spoke with patient *Medication Review Completed: No START oxyCODONE 10 MG tablet immediate release tablet Commonly known as: ROXICODONE Take 1 tablet (10 mg total) by mouth every 6 (six) hours as needed for pain for up to 7 days. Max Daily Amount: 40 mg naloxone 4 mg/actuation spray,non-aerosol nasal spray Commonly known as: NARCAN Administer 1 spray (4 mg total) into alternating nostrils as needed for opioid reversal. STOP taking: folic acid 1 mg tablet (FOLVITE) Medication Reconciliation Questions/Concerns: none *Follow Up Appointments with Providers: Primary: AMEENA GARCIA, needs Hospital Follow Up visit scheduled on or before 06/28/24, patient may ask for a telehealth visit Specialty: 06/29/24 [facility], Dr. Sepulveda Specialty: 06/20/24 [facility] Infectious Disease:Dr. Moody Specialty: 07/06/24 [facility]; IR percutaneous biopsy liver Specialty: [facility]; referral placed TBD Specialty: 07/12/24 [facility], Oncology Specialty: Plastic surgery, Jhon Gross MD [phone] TBD Review of Pending Lab/Diagnostic Tests and Plan for Completion: none Assessment and Support of Treatment Regimen Adherence and Medication Management: Dental Assisting Instructor spoke with patient for call. Patient talkative and states she is doing okay. Voices she likes all of her present medical providers in the [place] area but understands why she needs to schedule care at the [facility] so all providers are in one health system/team. She reports she has an appointment on 07/12/24 with oncology at the [facility]. She has not heard from [facility] Infectious disease in response to the referral placed during this last hospital visit. Dental Assisting Instructor educated patient on the need to schedule a PCP hospital follow up visit. She voices she will see when all the other appointments are scheduled, then decide. Dental Assisting Instructor discussed possible telehealth visit with PCP. Patient stated an understanding. Patient's reports her and her fiance perform BID would care to left chest (wet to dry dressing changes with VASHE solution. Cover with ABD pads and secure with ATTILA wrap). States site looks unchanged from when she left the hospital yesterday. Reports pain in wound area is a 6-7, on a 1-10 scale, when she takes oxycodone. Relief to 2-3 is obtained. Narcan is in the home. Reports PICC line is in place and she is managing it and IV antibiotics well. No redness or edema at PICC line site, flushes well. Dental Assisting Instructor reviewed new medications. She has no questions on other meds. She reports no issues with constipation, diarrhea or urination. Eating and drinking without issues No N/V. Education Provided by ACN to Support Self-Management, Independent Living and ADLs: Patient lives with fitorrey. DME-none ADL's-independent Transportation-self if not taking narcotics SDOH: denies needs Dental Assisting Instructor instructed patient to contact her PCP office for new, worsening or unresolved symptoms. Dental Assisting Instructor instructed patient to call 911 for any chest pain or difficulty breathing. Communication with Home Health Agencies and Other Services Utilized/Needed by the Patient: none [facility] 06-10-2024 Miscellaneous Notes Contract: [address] Left Breast Problem redness, hot to touch tender Call was connected to Dr Alonzo sheriff documented in this encounter [facility] 06-10-2024 Telephone encounter Note Contract: [address] Gross Left Breast Problem redness, hot to touch tender [facility] 06-10-2024 Telephone encounter Note Call was connected to Dr Alonzo sheriff [facility] 06-08-2024 History of Present illness Narrative Images from the original note were not included. [facility] Plastic & Reconstructive Surgery [id number] Office Jhon Gross MD, PhD Marisela Cuevas, PLANNING LEAD-APPARATUS ENGINEERING TECHNOLOGIST Shereen Smallwood, PA-C Plastic Surgery Progress Note Reason for visit : post-op History of present illness: Ike Flannery is a 53 y.o. female with a history of right breast cancer status post bilateral skin sparing mastectomies (Dr. He) and tissue putty mixer reconstruction (10/28/2023). Her postoperative course was complicated by an infected seroma of her left breast requiring operative washout and tissue putty mixer removal on 11/27/23. Intraoperative cultures demonstrated growth of atypical [...] returned to the OR on 05/02/2024 for I&D of her left breast with removal of her port a catheterization. She again returned to the OR on 05/04/2024 for excisional debridement of left chest wall wound. She was discharged home on 05/13 on IV antibiotics and BID wet to dry dressing changes. Patient was last evaluated in our office on 06/01/2024. She presents to our office today for a wound check and dressing change. She is doing dressing changes to the area 1 to 2 times daily using saline wet to dry dressings. She does not have any concerns regarding her wound today. She denies any fevers or chills. She denies any purulent drainage and feels as though the wound is decreasing in size. Unfortunately, her recent PET scan revealed a new hypermetabolic lesion in the liver. She is in the process of scheduling a biopsy for further evaluation. She is staying positive. Review of Systems: Denies surgical site concerns. All other symptoms negative except as noted in HPI. Physical Examination: Vitals: 06/08/24 1152 BP: (!) 156/110 Pulse: 69 Resp: 16 Temp: 36.5 C (97.7 F) There is no height or weight on file to calculate BMI. GENERAL: no acute distress, well developed, well nourished. LYMPHATIC: no upper extremity lymphedema NEUROLOGIC: alert and oriented to time, place and person. PSYCH: judgement and insight good, mood/affect full range. Focused examination : Left chest/breast wound present with healthy appearing reddish pink granulation tissue, no necrotic tissue. There is no purulent drainage, no calor, no red streaking. See photo and measurements below. Tiny pinpoint pustule and adjacent area of erythema were noted superior to the wound. (Patient was not aware of this area.) The area of erythema is firm, mildly tender, no fluctuance, no red streaking at this time. There is healthy appearing tissue between the wound and this area of erythema. (*Patient is on antibiotics via PICC per ID, unsure if those medications cover likely skin bacteria. She was advised to contact ID team at [facility] to notify them and seek guidance regarding this new finding since they are managing her antibiotics with her complex history of infection. Patient agreed. I believe they will be able to view images in Epic from visit today.) Left chest/breast wound 2.5cm x 1.4cm, tunnel at 12 o'clock of 6.3cm Lateral chest wound 1cm x 2.3cm New area of erythema superior to wound as described above Impression: 1. Encounter for postoperative care 2. Breast wound, left, sequela 3. Erythema of breast 4. Seroma of breast 5. Mycobacterium abscessus infection 6. S/P breast reconstruction, bilateral 7. Acquired absence of breast, bilateral 8. History of breast cancer Recommendations: -Continue with twice daily dressing changes to left breast wound- recommend using Vashe moist to moist gauze (instead of normal saline), lightly pack into tunnel (avoid aggressively packing), cover with ABD pad, secure with tape. *Be sure to treat lateral breast wound as well (as discussed) in the same way. -Patient will contact infectious disease team managing antibiotics today to notify them of new area of erythema/photos in chart. Plastic surgery team defers treatment/management of antibiotics to ID team since they are already managing antibiotics/PICC line. -Patient may reconsider wound care clinic to see if they have any strategies or products to promote wound healing. -Return to the clinic in one week for follow up/wound check. -Call/return sooner if concerns, increased redness, swelling, tenderness, drainage, fever, or chills develop. Patient's questions were answered to her satisfaction. She verbalized understanding and agreed to plan of care. INÉS BYERS PA-C 06/13/24 [id number] documented in this encounter [facility] 06-08-2024 History of Present illness Narrative Called to discuss rescheduling surgery, most recent results of PET scan revealed a new hypermetabolic lesion in the liver, she is set to have a biopsy next week with treatment planning to follow up. I discussed we will likely plan a phone call in 2-3 weeks to review pathology as well as discuss surgical planning, 19 minutes was spent on the phone with the patient and documented in the chart as well as reviewing images. [facility]-03-2024 Nuclear medicine Diagnostic study note [facility] [place] [address] Nuclear Medicine Report Signed Patient: Ike Flannery MR#: [id number] : 1970 Acct:[id number] Age/Sex: 53 / F ADM Date: 5 Loc: Room: Type: [facility] Attending Dr: Aarti Hope MD Copies to: MD Fortino Mistry MD~ Ordering Provider: Arati Hope MD Date of Service: 06/03/24 PET/PET tumor subq tx strat sb-mt: Breast CA PET/CT FUSION IMAGING CLINICAL INFORMATION: Breast cancer, restaging, liver lesion, indeterminate. COMPARISON : PET/CT 04/17/2023 TECHNIQUE: Noncontrasted CT scan from the base of the skull to the upper thigh followed by PET imaging. Multiplanar PET/CT fusion images. The blood sugar is 98mg/dL. The F-18 FDG amount is 12.2mCi. FINDINGS: Neck: No FDG avid hypermetabolic disease. Chest:No FDG avid hypermetabolic disease. Abdomen/pelvis: Focal increased FDG activity right posterior liver, 6.2 SUV. Soft tissue/bones: Abnormal FDG activity left anterior chest wall along the siteof prior mastectomy, this measures up to 9 SUV laterally and 5.3 SUV along the medial margin.. Possible injection sites with with increased uptake right buttock 2.[address] findings: Bilateral mastectomy. Right-sided implant. Ill-defined nonmass-like soft tissue thickening left anterior chest wall corresponding to site of hypermetabolic disease Right posterior liver lesion 2.5 x 1.7 cm in size. PET/PET tumor subq tx strat sb-mt IMPRESSION: Increased uptake within the right posterior hepatic lobe lesion 6.2 SUV. Findings worrisome for possible metastases. Consider hepatic MRI or consider percutaneous sampling. Nonmasslike areas of increased metabolic uptake, up to 9 SUV, identified left chest wall possibly related to recent surgery or infection. Clinical correlation and clinical follow-up is strongly recommended Impression dictated by: Fortino Tate M.D.06/03/2024 12:40 PM Dictation Location: [place] [address] Transcribed By: [facility] 06/03/24 1240 Dictated By: Fortino Tate MD 06/03/24 1216 Signed By: 06/03/24 1240 [facility] Work Phone: 06-01-2024 Miscellaneous Notes Called patient to let her know I spoke with Shereen regarding her previous wound care plans. Given how well the wound is healing and that it is almost superficial in depth we will continue with BID wet to dry dressing changes. Patient verbalized an understanding. documented in this encounter [facility] 06-01-2024 Telephone encounter Note Called patient to let her know I spoke with Shereen regarding her previous wound care plans. Given how well the wound is healing and that it is almost superficial in depth we will continue with BID wet to dry dressing changes. Patient verbalized an understanding. [facility] Work Phone: 06-01-2024 Note Allergy list updated based on desensitization done on 06/01/24. [facility] 06-01-2024 Note Patient states she h as had no delayed reaction to the omadacycline -she has the 300 mg tablets at home and she will start meds in the morning. We will periodically monitor renal function and hepatic function. She will continue the imipenem amikacin and clofazimine through the expanded access program -we will see her back in the outpatient clinic in 2 to 3 weeks. Will let pharmacy know [facility] 06-01-2024 History of Present illness Narrative Reason for Appointment: Patient ID: Ike Flannery is a 53 y.o. female who presents for Well Women Visit Patient presents today for Annual Exam. MEDICATIONS Current Outpatient Medications Medication Instructions Eliquis 5 mg, 2 times daily FeroSul 325 (65 Fe) MG tablet TAKE 1 TABLET (325 MG TOTAL) BY MOUTH IN THE MORNING. folic acid (FOLVITE) 1 mg, Daily RT gabapentin (Neurontin) 300 MG capsule TAKE ONE CAPSULE BY MOUTH TWICE A DAY FOR HOT FLASHES gabapentin (NEURONTIN) 300 mg, 2 times daily metoprolol succinate XL (TOPROL-XL) 100 mg, Daily RT potassium chloride CR (Klor-Con) 10 MEQ ER tablet TAKE 4 TABLETS (40 MEQ) BY MOUTH ONCE DAILY FOR 2 DAYS. DO NOT CRUSH, CHEW, OR SPLIT. prochlorperazine (Compazine) 10 MG tablet TAKE ONE TABLET BY MOUTH THREE TIMES A DAY NEEDED FOR NAUSEA pyridoxine (B-6) 50 mg, Daily RT ALLERGIES Allergies Allergen Reactions Meperidine Swelling and Unknown Other Reaction(s): Other, Unknown Ceftaroline Daptomycin Other Other Reaction(s): Flushing Meperidine Hcl Unknown Tetracycline Tigecycline Hives Rash vomiting Vancomycin Other Reaction(s): Other Intolerance: experienced acute kidney injury during a hospitalization, suspected due to vancomycin. Doxycycline Rash Wound Dressing Adhesive Rash, Unknown and Itching PROBLEMS Active Ambulatory Problems Diagnosis Date Noted Complex ovarian cyst 05/26/2023 Invasive ductal carcinoma of breast, right 05/26/2023 Well woman exam with routine gynecological [...] RIGHT 10/16/2023 BREAST BIOPSY Right CYSTOSCOPY 2019 IR BIOPSY BONE MARROW Right 05/12/2024 IR BIOPSY BONE MARROW 05/12/2024 KNEE ARTHROSCOPY W/ MENISCECTOMY Right 01/21/2021 Partial lateral- Dr. Oglesby KNEE ARTHROSCOPY W/ PARTIAL MEDIAL MENISCECTOMY Left 08/26/2021 Dr. Oglesby LIPOMA RESECTION 2015 upper back MASTECTOMY Bilateral 10/2023 TONSILLECTOMY TOTAL ABDOMINAL HYSTERECTOMY 2005 REVIEW OF SYSTEMS Review of Systems: Review of Systems Constitutional: Negative. HENT: Negative. Eyes: Negative. Respiratory: Negative. Cardiovascular: Negative. Gastrointestinal: Negative. Genitourinary: Negative. Musculoskeletal: Negative. Skin: Negative. Neurological: Negative. All other systems reviewed and are negative. Hematological: Negative. Endocrine: Negative. Allergic/Immunologic: Negative. OBJECTIVE Objective: Physical Exam Constitutional: Appearance: Normal appearance. She is well-developed. Genitourinary: Vulva normal. Vaginal cuff intact. Cervix is absent. Uterus is absent. Cardiovascular: Rate and Rhythm: Normal rate and [...] nursing note reviewed. Exam conducted with a cloth boil off machine operator present. Vitals: Estimated body mass index is 26.28 kg/m as calculated from the following: Height as of 01/25/24: 5' 11 . Weight as of this encounter: 188 lb 6.4 oz. BP: 110/68 No LMP recorded. Patient has had a hysterectomy. ASSESSMENT & PLAN ICD-10-CM 1. Well woman exam with routine gynecological exam Z01.419 THIN PREP TIS PAP AND HR HPV DNA POCT urinalysis dipstick manually resulted 2. Breast cancer screening by mammogram Z12.31 CANCELED: Bilateral screening mammogram CANCELED: Bilateral screening mammogram 3. Postmenopausal state Z78.0 DEXA bone density Annual Exam: Patient presents today for an annual exam. Patient states she is doing well and has no complaints. Pap was obtained without difficulty. Pt had 9 surgeries over the last year and double mastectomy. Pt had hysterectomy in 30s. Pt having scan on Thursday and televisit with Derick next week. Orders Placed This Encounter Procedures DEXA bone density POCT urinalysis dipstick manually resulted Follow Up: Patient is to return in one year for annual unless needed otherwise. Documented by Seema Salazar LPN on behalf of: Evan Thompson DO documented in this encounter [facility] 06-01-2024 History of Present illness Narrative [facility] Plastic & Reconstructive Surgery [address] Office Jhon Gross MD, PhD Marisela Cuevas, PLANNING LEAD-APPARATUS ENGINEERING TECHNOLOGIST Shereen Smallwood PA-C Plastic Surgery Progress Note Reason for visit : post-op History of present illness: Ike Flannery is a 53 y.o. female with a history of ght breast cancer status post bilateral skin sparing mastectomies (He) and tissue putty mixer reconstruction in 10/28/2023. Her postoperative course was complicated by an infected seroma of her left breast requiring operative washout and tissue putty mixer removal 11/27/23. Intraoperative cultures demonstrated growth of [...] her left breast with removal of her port a catheterization. Patient was previously evaluated in our office on 05/18/2024. She states after last office appointment she was admitted to the due to complications with her IV antibiotics. She was discharged in stable condition. She presents to our office today for a wound check and dressing change. She states that she is doing well. She is having no issues packing her wound at home. She believes that the wound is actually improving in size. She denies any fevers or chills. Denies any purulent drainage. Review of Systems: Denies surgical site concerns. All other symptoms negative except as noted in HPI. Physical Examination: Vitals: 06/01/24 0936 BP: (!) 149/95 Pulse: 81 Resp: 14 Temp: 36.5 C (97.7 F) There is no height or weight on file to calculate BMI. GENERAL: no acute distress, well developed, well nourished. LYMPHATIC: no upper extremity lymphedema NEUROLOGIC: alert and oriented to time, place and person. PSYCH: judgement and insight good, mood/affect full range. Focused examination : Left breast wound present: 14cm x 3cm wound with approximately 6 cm of tunneling towards her previous port site proximally. Depth is approximately 3/4cm. The wound bed is healthy with granulation tissue. No fibrinous tissue present. No surrounding erythema. No necrotic tissue present. No purulent drainage noted. Impression: 1. Encounter for postoperative care 2. Breast wound, left, sequela 3. Seroma of breast 4. Mycobacterium abscessus infection 5. S/P breast reconstruction, bilateral Recommendations: Discussed with patient that she is doing well from a plastic and reconstructive surgery standpoint. Discussed that she should continue with b.i.d. wet-to-dry dressing changes at this time. Discussed I will reach out to Dr. Gross to determine if we can proceed with wound VAC application. She did have a wound VAC while admitted to [facility]. She states that her insurance declined wound VAC applications. We can attempt to obtain insurance approval for [facility] wound VAC. follow up next week for clinical check. She was advised to call the office any questions or concerns in the interim. - AMEENA Rand 06/01/24 10:45 AM Please note that portions of this note were generated using voice recognition [id number] dictation software. Although every effort was made to ensure the accuracy of this automated control panel operator crude unit, some errors in control panel operator crude unit may have occurred. AMEENA Kennedy 06/01/24 1046 documented in this encounter [employer] 05-31-2024 Note Subjective Patient ID: Tia Flannery is a 53 y.o. female. Chief Complaint: Evaluation of doxycycline allergy and the need for doxy/omadacycline. HPI 53-year-old female with complicated past medical history including right invasive ductal carcinoma of the breast status post double mastectomies that was complicated by left chest wall abscess secondary to Mycobacterium infection in November 2023. Patient had history of 2 debridements of the abscess. Patient admitted to hospital on 05/23/24 with fever. her Mycobacterium is resistant. Patient also developed fever and chills with ecftaroline infusion likely drug hypersensitivity in nature. Mycobacterium sensitive to amikacin, clarithromycin. Resistant to doxycycline. Unfortunately, a tetracycline cannot be added at this time as she has had documented and confirmed allergies to both doxycycline and tigecycline. The plan is to put her on omadacycline. Doxycycline allergy Tia Yumi Widchen is here for evaluation of Doxycycline allergy. Patient had symptoms of skin rash and flushing upon treatment with Doxy . This medication was given by intravenous injection. Symptoms occurred within 30 mins of infusion. The patient was treated with antihistamines. This occurred in December 2023. Based on EPIC Search January 2024 : Doxycycline - caused a rash for her. [...] does not need doxycycline for her infection. 12/2023: Gave dose of doxycycline this morning and patient developed flushing of face and rash on chest-discontinued No angioedema, no sloughing of skin or mucosal lession. No shortness of breath. Benadryl , and symptoms goes away. Review of Systems Constitutional: Negative for chills, fatigue and fever. HENT: Negative for congestion, ear pain, nosebleeds, postnasal drip, rhinorrhea, sinus pressure, sinus pain, sneezing, sore throat and tinnitus. Eyes: Negative for itching. Respiratory: Negative for cough, chest tightness, shortness of breath and wheezing. Cardiovascular: Negative for chest pain. Gastrointestinal: Negative for abdominal pain, constipation, diarrhea, nausea and vomiting. Endocrine: Negative for cold intolerance and heat intolerance. Musculoskeletal: Negative for arthralgias and myalgias. Skin: Negative for rash. Neurological: Negative for dizziness, light-headedness and headaches. Hematological: Negative for adenopathy. Psychiatric/Behavioral: Negative for sleep disturbance. Objective Physical Exam Constitutional: Appearance: Normal appearance. HENT: Head: Normocephalic and atraumatic. Right Ear: External ear normal. Left Ear: External ear normal. Nose: Nose normal. Mouth/Throat: Mouth: Mucous membranes are moist. Eyes: Conjunctiva/sclera: Conjunctivae normal. Cardiovascular: Rate and Rhythm: Normal rate and regular rhythm. Heart sounds: Normal heart sounds. Pulmonary: Effort: Pulmonary effort is normal. Breath sounds: Normal breath sounds. No wheezing. Abdominal: General: There is no distension. Musculoskeletal: General: Normal range of motion. Cervical back: Normal range of motion and neck supple. Skin: General: Skin is warm. Findings: No rash. Comments: + wound over left breast, covered in gauze. Neurological: General: No focal deficit present. Mental Status: She is alert. Psychiatric: Mood and Affect: Mood normal. Behavior: Behavior normal. Laboratory: Skin test to doxy was performed. Skin test were negative to both intradermal skin test to doxy. Please see scanned docs for details. Decision made to do challenge to omadacycline today. patient completed challenge to omadacycline (total 300 mg), no immediate reaction observed. Assessment/Plan Diagnosis Plan 1. Multiple drug allergies 2. Doxycycline adverse reaction, initial encounter 3. Mycobacterium abscessus infection 4. Invasive ductal carcinoma of breast, right (CMS/HCC) 5. Open wound of left chest wall, sequela Doxycycline Hypersensitivity Adverse reactions involving IgE-mediated hypersensitivity are rare. For all tetracyclines, most hypersensitivity reactions are [id number]. Nonetheless, IgE-mediated reactions do occur, and anaphylaxis has been reported. Skin testing is not standardized for any of the tetracycline antimicrobials, and positive and negative predictive values have not been established. Patient had skin test to doxycycline skin prick testing 10 mg/mL, intradermal testing 0.0001 mg/mL, intradermal testing 0.001 mg/mL; skin test were zavala negative. Patients has low clinical suspicion for anaphylactic reactions and negative skin test (more content not included)... [facility] 05-30-2024 Note Microbiology PROCEDURE: Blood Culture Charcoal [R1] SOURCE: Blood BODY SITE: Chest COLLECTED DATE/TIME: 05/22/2024 20:14 EDT RECEIVED DATE/TIME: 05/22/2024 20:36 EDT START DATE/TIME: 05/22/2024 20:37 EDT FREE TEXT SOURCE: Benji Zamorano PA-C, PA-C, Levi J. FINAL REPORTS Final Report [] Verified Date/Time: 05/29/2024 21:00 EDT No growth at 7 days. Performing Locations R1: This test was performed at: [facility], [address] [place] [address], [facility] , , [facility] Comment on above: Performed By: #### 1 [id number] #### [facility] [address] [place] [address] 05-30-2024 Note Microbiology PROCEDURE: Blood Culture Charcoal [R1] SOURCE: Blood BODY SITE: Hand L COLLECTED DATE/TIME: 05/22/2024 21:00 EDT RECEIVED DATE/TIME: 05/22/2024 21:17 EDT START DATE/TIME: 05/22/2024 21:17 EDT FREE TEXT SOURCE: Benji Deleon PA-C, PA-C, Levi J. FINAL REPORTS Final Report [] Verified Date/Time: 05/30/2024 00:00 EDT No growth at 7 days. Performing Locations R1: This test was performed at: [facility], [address] [place] [address], [id number] [place] [address], [facility] Comment on above: Performed By: #### 1 [id number] #### [facility] [address] [place] [id number] 05-29-2024 Note Microbiology PROCEDURE: Blood Culture Charcoal [R1] SOURCE: Blood BODY SITE: Chest COLLECTED DATE/TIME: 05/22/2024 20:14 EDT RECEIVED DATE/TIME: 05/22/2024 20:36 EDT START DATE/TIME: 05/22/2024 20:37 EDT FREE TEXT SOURCE: Pancho CONTE, Benji Heard. Pancho CONTE, Benji Heard. FINAL REPORTS Final Report [] Verified Date/Time: 05/29/2024 21:00 EDT No growth at 7 days. Performing Locations R1: This test was performed at: [facility], [address] [place] [address], [id number] [place] [address], [facility] Comment on above: Performed By: #### 1 [id number] #### [facility] [address] [place] [id number] 05-27-2024 Note 05/27/24 1627 Admission Assessment Questions Verify insurance with patient Yes ([facility] Medicaid) Do you understand medical disease or what brought you into the hospital? Yes Who is your current PCP? Randy Calle MD Can I schedule a follow up appointment for you at the time of discharge? Yes Do you understand why you are taking your current medications? Yes Are you taking your medications as prescribed? Yes Did patient provide teach back? No Pharmacy Bedside Delivery Status Interested Does the patient have a case investigator assigned to them through their insurance? No Living Arrangement (Current/Prior to Hospitalization) Private residence;Home self care (lives with gemma Evangelista in 1 story house, laundry on main level) Does the patient have history of HHC or SNF? No Assistive Device Other (Comment) (has an IV pole) Patient's goal for discharge return Home, resume Home IV antbiotics provided through [employer], Await [place] Approval/will be shipped to pt's Home after approved Was patient reminded that goal for discharge is 11am? Yes Does the patient have transportation at discharge? Yes (gemma Evangelista at bedside) Type of Residence Private residence;Other (Comment) Is PT/OT appropriate? No Is PT/OT ordered? No Is SW consult appropriate? Yes Is SW consult ordered? No Do you understand the benefits of MyChart? Yes Were you able to send link and activate MyChart? MyChart already active Screen completed earlier today at bedside with patient & gemma Evangelista. Discharge in progress for today: discharge in progress: return Home w/ gemma. [facility] [place] to be delivered to Home, W->D dressing changes until then. [facility] to provide Amikacin 3x/wk+Imipenem-Cilastatin q12 hr (pt to administer). Pt to follow-up @ [facility] for wound care & application of Wound Vac after delivered. Pt to follow-up with [facility] on June 01 @ 9am. [facility] 05-27-2024 Note Hospital Medicine Discharge Summary Final Discharge Diagnosis: SIRS (systemic inflammatory response syndrome) (CMS/HCC) Invasive ductal carcinoma of breast, right (CMS/HCC) Iron deficiency anemia Open wound of chest wall Pulmonary hypertension (CMS/HCC) Mycobacterium abscessus infection Essential (primary) hypertension Hypokalemia Chronic deep vein thrombosis (DVT) of right lower extremity (CMS/HCC) Admission Diagnosis: Immunocompromised [D84.9] Fever, unspecified fever cause [R50.9] Hospital course: 53-year-old female with complicated past medical history including right invasive ductal carcinoma of the breast status post double mastectomies that was complicated by left chest wall abscess secondary to Mycobacterium infection in November 2023. Patient had history of 2 debridements of the abscess, patient was getting wound care as an outpatient, wound VAC was arranged to be delivered to her home this week. Patient is currently on amikacin, imipenem, clofazimine and ceftaroline. She follows up with Dr. Lui ([place]). Patient presented to the emergency department due to fever and she was admitted to the medical surgical floor. Infectious disease were consulted. patient reported reaction to ceftaroline where she will get generalized shakiness and fever ceftaroline infusion. Patient review of system was negative, she was not having any new symptoms, blood cultures were obtained and they remain negative. 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 She was seen by vascular surgery, her wound remains healed. her plastic surgeon was contacted and wound VAC was ordered and arranged. 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 Patient will follow-up with allergy clinic on 05/31/2024. Plan of care discussed with infectious disease and the patient on the day of discharge. Surgical, Invasive or Diagnostic Procedures Done During Admission: None Consultations During Admission: Infectious Disease Dear MD Alva, Ike Weber is advised to follow up with you within 1-2 weeks. Items to follow up in ambulatory setting: None Follow-up with: Infectious Disease Scheduled appointments: Future Appointments Date Time Provider Department Center 06/08/2024 8:40 AM Juhi Atwood MD [facility] ALGY [facility] 06/22/2024 2:30 PM Jossy Moody MD [facility] INF [facility] Your medication list START taking these medications Instructions Last Dose Given Next Dose Due ferrous sulfate 325 (65 Fe) MG tablet Take 1 tablet (325 mg) by mouth with breakfast and with evening meal for 193 doses. CONTINUE taking these medications Instructions Last Dose Given Next Dose Due acetaminophen 500 mg tablet Commonly known as: Tylenol amikacin 500 mg/2 mL injection Commonly known as: Amikin anastrozole 1 mg chemo tablet Commonly known as: Arimidex apixaban 5 mg tablet Commonly known as: Eliquis calcium carbonate 200 mg calcium (500 mg) chewable tablet Commonly known as: Tums cyanocobalamin 1,000 mcg tablet Commonly known as: Vitamin B-12 folic acid 1 mg tablet Commonly known as: Folvite gabapentin 300 mg capsule Commonly known as: Neurontin hydrOXYzine HCL 25 mg tablet Commonly known as: Atarax ibuprofen 200 mg tablet imipenem-cilastatin 500 mg in sodium chloride 0.9 % 100 mL IVPB INV CLOFAZIMINE 50 mg capsule capsule Take 2 capsules (100 mg) by mouth once daily as directed. Take with a high-fat meal. Jose 7-7-1.5 gram powder in packet Generic drug: wealajpe-tszwbdzgr-tibswun HMB magnesium oxide 400 mg tablet Commonly known as: Mag-Ox metoprolol succinate XL 100 mg 24 hr tablet Commonly known as: Toprol-XL oxyCODONE 5 mg immediate release tablet Commonly known as: Roxicodone PEMBROLIZUMAB IV potassium chloride CR 10 mEq ER tablet Commonly known as: Klor-Con prochlorperazine 10 mg tablet Commonly known as: Compazine pyridoxine 50 mg tablet Commonly known as: B-6 Take 1 tablet (50 mg) by mouth in the morning for 180 doses. sodium chloride 0.9 % solution Verzenio 150 mg chemo tablet Generic drug: abemaciclib Voltaren Arthritis Pain 1 % topical gel Generic drug: diclofenac STOP taking these medications diazePAM 5 mg tablet Commonly known as: Valium Teflaro 600 mg injection Generic drug: ceftaroline Where to Get Your Medications These medications were sent to [facility] - [address] [place] [address] [address] [facility] [place] [address], [facility] [address] ferrous sulfate 325 (65 Fe) MG tablet Ike Weber is allergic to ceftaroline fosamil, meperidine, adhesive tape-silicones, daptomycin, tigecycline, vancomycin, and doxycycline. Disposition: Home-Health Care [facility] [place] (06) Discharge Condition: Stable Code Status: Full Code Diagnostic Results (more content not included)... [facility] 05-27-2024 Note Patient name: Samantha Flannery Date of : 1970 Admission date: 05/23/2024 ANTIBIOTIC ORDERS Infectious Diseases Diagnosis for antibiotic management: NTM Name/dosing/frequency of antibiotic: imipenem, amikacin, cloafazime Continue antibiotics through: for 6 months LABORATORY ORDERS: as per previous outpatient orders CONTACT NUMBERS For all questions call: [phone] IV ACCESS: PICC OK to draw blood from IV access device: Yes Leave intravenous access in place until follow up appointment. IV ACCESS FLUSHING ORDERS PER INFUSION COMPANY PROTOCOL ID PHYSICIAN WHO WILL BE OVERSEEING OUTPATIENT IV ANTIMICROBIAL THERAPY: Dr. Jossy Moody MD PRIMARY CARE PROVIDER: Randy Calle MD ALLERGIES: Allergies Allergen Reactions Ceftaroline Fosamil Fever Diagnosed by Infectious Diseases Physician as drug-related during hospitalization. Patient has nausea, headaches, chills, and fevers as high as 102.7 F with administration of Ceftaroline. Meperidine Swelling, Unknown and Other Adhesive Tape-Silicones Itching Daptomycin Other Tigecycline Hives Rash vomiting Vancomycin Other Intolerance: experienced acute kidney injury during a hospitalization, suspected due to vancomycin. Doxycycline Rash WEIGHT: Wt Readings from Last 1 Encounters: 05/27/24 86.5 kg (190 lb 11.2 oz) HEIGHT: Ht Readings from Last 1 Encounters: 05/23/24 1.803 m (5' 11 ) RECENT LABS: Results from last 7 days Lab Units 05/27/24 0611 POTASSIUM mmol/L 3.3* CHLORIDE mmol/L 110* CO2 mmol/L 30 BUN mg/dL 5* CREATININE mg/dL 0.50* CALCIUM mg/dL 8.4* Results from last 7 days Lab Units 05/27/24 0611 WBC AUTO 10*3/uL 2.53* HEMOGLOBIN g/dL 7.4* HEMATOCRIT % 22.5* PLATELETS AUTO 10*3/uL 126* NEUTROS PCT AUTO % 55.3 LYMPHS PCT AUTO % 32.7 MONOS PCT AUTO % 8.0 EOS PCT AUTO % 4.0 Significant Hospital Summary: M. Abscessess SSTI - allergic reaction to ceftaroline MICROBIOLOGY: M. asscessess DISPOSITION: Home Follow-up: scheduled This information has been explained to the patient: Yes [facility] 05-27-2024 Note PA states cancelled in CMMs. However, the claim pays for $0. Deborah Ramires PharmD, LUCIACP 06/27/24 2:32 PM [facility] [phone] [facility] 05-27-2024 Note PA was only approved for 1 month. Pt is supposed to be on the medication for at least 6 months. Submitted a new PA on CMMs. Updated spreadsheets. Informed pt, she has 8 days of medication left but if we want her to pick it up should probably try to do it before 06/30/24 because she will be here for an apt. Deborah Ramires PharmD, LUCIACP 06/24/24 12:48 PM [facility] [phone] [facility] 05-27-2024 Note We received a new pr escription for Keyshazyra and is requiring a PA. Kam Alfaro [facility] 05/27/24 12:39 PM [facility] 05-27-2024 Note Refill call complete yvette Galarza [facility] 08/31/24 11:40 AM [facility] 05-27-2024 Note PA Approved through 06/25/2024. $0 copay. Called Avi Heatongagandeepguadalupe ([phone]) to notify her of PA approval. Andree Ryan, SukiD Outpatient Clinical Pharmacist [facility] [phone] 05/30/24 8:36 AM [facility] 05-27-2024 Note Specialty Pharmacy [facility] [place]: Yonatan Supervising Physician & Clinic:?? Scott Rodriguez, infectious disease Ike Flannery is a 53 y.o. year old female patient with PMH of: Past Medical History: Diagnosis Date Cancer (CMS/HCC) [...] S/P breast reconstruction, bilateral Mycobacterium abscessus infection Fever, unspecified fever cause Hypokalemia Open wound of chest wall SIRS (systemic inflammatory response syndrome) (CMS/HCC) Chronic deep vein thrombosis (DVT) of right lower extremity (CMS/HCC) Allergies Allergen Reactions Ceftaroline Fosamil Fever Diagnosed by Infectious Diseases Physician as drug-related during hospitalization. Patient has nausea, headaches, chills, and fevers as high as 102.7 F with administration of Ceftaroline. Meperidine Swelling, Unknown and Other Adhesive Tape-Silicones Itching Daptomycin Other Tigecycline Hives Rash vomiting Vancomycin Other Intolerance: experienced acute kidney injury during a hospitalization, suspected due to vancomycin. Doxycycline Rash PharmD consulted for evaluation of Nuzyra for treatment of mycobacterium abscessus (Diagnosis Code: A31.8). ?? Prescribed Dosing: Nuzyra 10 mg take 2 tablets by mouth once daily The following evidence-based tools were consulted for this evaluation: [x] OpenPortal Drug Information [] [facility] Clinical Resource [] Clinical Pharmacology [x] FDA Package Insert [] Other: Please Specify: Previous medications tried: None Current Inpatient therapy consists of amikacin, imipenem, and clofazimine. Ceftaroline was stopped due to drug reaction of fever, nausea, headache and chills. Outpatient regimen plan is to continue imipenum and amikacin with omadacycline. No pertinent drug interactions were noted. No renal or hepatic dose adjustments necessary. Vitals: Ht Readings from Last 1 Encounters: 05/23/24 1.803 m (5' 11 ) Wt Readings from Last 1 Encounters: 05/27/24 86.5 kg (190 lb 11.2 oz) BMI Readings from Last 1 Encounters: 05/27/24 26.60 kg/m??? BP Readings from Last 1 Encounters: 05/27/24 137/88 Pulse Readings from Last 1 Encounters: 05/27/24 71 Pertinent labs: CMP: Lab Results Component Value Date GLUCOSE 83 05/27/2024 CALCIUM 8.4 (L) 05/27/2024 NA 143 05/27/2024 K 3.3 (L) 05/27/2024 CO2 30 05/27/2024 CL 110 (H) 05/27/2024 BUN 5 (L) 05/27/2024 CREATININE 0.50 (L) 05/27/2024 EGFR 112.1 05/27/2024 LFTs: Lab Results Component Value Date ALT 66 (H) 05/27/2024 AST 53 (H) 05/27/2024 ALKPHOS 125 (H) 05/27/2024 BILITOT 0.5 05/27/2024 ALBUMIN 3.1 (L) 05/27/2024 PROT 5.2 (L) 05/27/2024 CBC: Lab Results Component Value Date WBC 2.53 (L) 05/27/2024 HGB 7.4 (L) 05/27/2024 HCT 22.5 (L) 05/27/2024 MCV 90.4 05/27/2024 PLT 126 (L) 05/27/2024 NEUTROABS 1.4 (L) 05/27/2024 TB: No results found for: QFG , LQFGP Viral Hepatitis: Lab Results Component Value Date HEPBSAG Nonreactive 05/24/2024 HEPAIGM Nonreactive 05/24/2024 HEPBCAB Nonreactive 05/24/2024 HEPCAB Nonreactive 05/24/2024 Evaluation: Patient has mycobacterium abscessum surgical site infection. Based on the patient's current regimen on imipenem, amikacin and clofazimine being changed to an outpatient regimen of imipenem, amikacin and omadacycline, the patient may be an appropriate candidate for this medication.? Patient has reported allergic reaction to tetracyclines. Plan is for appointment with Allergy (Dr. Atwood) for hypersensitivity/ possible desensitization for tetracycline. Follow-up: Spoke with Avi Tobar about prescription. Requested urgent PA submission. ID Provider is also going to try to call. Submitted urgent PA in [facility]. When PA results call Avi Tobar ([phone]) with result. Opal Leo, PharmD 05/27/24 1:40 PM [facility] 05-27-2024 Note Infectious Diseases - Inpatient daily Progress Note - Patient name: Ike Flannery Patient Today's Date and Time: 05/27/2024, 9:51 AM Admission Date: 05/23/2024 Assessment/Plan Impression: Fever - Likely Drug Reaction to Ceftaroline. The patient described symptoms of nausea, headaches, chills, and fevers as high as 102.7F with administration of Ceftaroline. An extensive ROS remained negative otherwise. Her presentation is not consistent with meningitis. 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 While she does have a CXR showing RLL abnormality, she does not have any respiratory symptoms or hypoxia that would be expected from pneumonia. US abdomen reported a mild CBD dilation of 8 mm but she has no abdominal symptoms and her bilirubin/ALP are both WNL. Blood cultures here show NGTD. Given her description of fevers/chills being triggered by Ceftaroline infusion, and cessation of her fevers and other symptoms with stopping of Ceftaroline, it appears that her febrile episodes were indeed a drug reaction to Ceftaroline even though it is not known to typically cause these fevers. Of note, the fevers started about 10 days after starting Ceftaroline which unfortunately is within the expected timeframe of a drug reaction. The patient continues to deny any fevers, chills, or symptoms following cessation of Ceftaroline. 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 Unfortunately, the Mycobacterium is relatively resistant and she is on a complicated antimicrobial regimen of clofazimine, imipenem, amikacin, and ceftaroline. The wound remains nicely healed and now has a wound vac in place. It is unlikely that the surgical site infection is the cause of her current fevers, as it looks clean without evidence of infection. The Ceftaroline was stopped due to the drug reaction as described above. Unfortunately, a tetracycline cannot be added at this time as she has had documented and confirmed allergies to both doxycycline and tigecycline. She had a STAT consult to outpatient allergy placed, and per discussion with Dr. Atwood, will have an emergent appointment with her on 05/31/24, for tetracycline hypersensitivity/possible desensitization. She will need to be started on Tetracyclines as soon as possible, if at all possible. Hx Left Breast Mastectomy - Surgically removed, due to concerns of breast cancer, complicated by Mycobacterium abscessum infection as described above. Recommendations: Continue home regimen of Imipenem, Amikacin, and Clofazimine. Ceftaroline has been stopped due to drug reaction as described above. The patient has an emergent appointment with outpatient Allergy scheduled with Dr. Atwood for tetracycline hypersensitivity/possible desensitization. Per Dr. Atwood, she will perform a Doxycycline skin test with possible challenge with Omadacycline. Per discussion with Pharmacy, will send an oral Omadacycline 300 mg daily prescription to [facility]. CMP and CBC with Differential have been ordered by Dr. Atwood's request. We will try to get the patient started on a Tetracycline as soon as possible, once it is deemed safe to do so. Her outpatient ID provider, Dr. Lui, has been contacted and is receiving regular updates. She should see infectious diseases in the outpatient setting as soon as possible. The patient is okay to discharge from an ID perspective once her Wound Vac has been replaced. Subjective Interval history: The patient reports feeling well today. She denies any further episodes of fevers and shakes. She denies any cough, SOB, or any other symptoms. Objective Physical Examination: BP 137/88 (BP Location: Left arm, Patient Position: Lying) Pulse 71 Temp 36.8 ???C (98.2 ???F) (Oral) Resp 16 Ht 1.803 m (5' 11 ) Wt 86.5 kg (190 lb 11.2 oz) SpO2 98% BMI 26.60 kg/m??? Temperature Range: Temp: 36.8 ???C (98.2 ???F) Temp Av.7 ???C (98 ???F) Min: 36.5 ???C (97.7 ???F) Max: 36.8 ???C (98.2 ???F) General Appearance: Awake, alert, and in no apparent distress, nontoxic. Eyes: Sclera anicteric; conjunctivae clear ENT: Oropharynx clear, without erythema, exudate, no thrush. Dentition Good dentition Neck: Supple, without lymphadenopathy. Pulmonary/Chest: clear to auscultation, no wheezes or rales, and unlabored breathing Cardiovascular: Regular rate and rhythm without murmurs Abdomen: soft, non-tender, nondistended, no palpable masses no organomegaly; normal bowel sounds Extremities: No cyanosis, edema, no joint effusions. Left PICC line in place without obvious abnormalities. Neurologic: Alert and oriented x 3, nonfocal. strength and sen (more content not included)... [facility] 05-27-2024 Note Pharmacy Dosing Serv ice - Aminoglycosides Daily IVent Amikacin Started 04/15/24 Indication: Non-tuberculosis mycobacterium (NTM) infection -Target Peak: 30-35 (can also target 20-35 based on tolerability) -Target Trough: Undetectable Other Antimicrobial Regimens: Imipenem-cilastatin and clofazimine. Ceftaroline stopped -Missed administrations? no -New Microbiology results? no -Renal function stable? yes -Date of last level evaluation? 05/26/24 Temp (24hrs), Av.7 ???C (98 ???F), Min:36.5 ???C (97.7 ???F), Max:36.8 ???C (98.2 ???F) Lab Results Component Value Date WBC 2.53 (L) 05/27/2024 WBC 2.08 (L) 05/26/2024 WBC 2.68 (L) 05/25/2024 Lab Results Component Value Date BUN 5 (L) 05/27/2024 BUN 7 05/26/2024 BUN 8 05/25/2024 CREATININE 0.50 (L) 05/27/2024 CREATININE 0.56 (L) 05/26/2024 CREATININE 0.69 05/25/2024 Plan -Potential discharge today. If patient is discharged can give 750 mg amikacin tomorrow 05/28/24 on Thursday then can resume amikacin 750 mg MWF on 05/30/24 -Next levels can be rescheduled outpatient at patient's convenience -Check BUN/SCr daily [facility] 05-27-2024 Note Recevied emailed wou nd vac form from [facility] at 5:54pm yesterday. Submitting to [employer] for Ready vac. DC orders placed yesterday evening. Await wound vac insurance approval. Submitted for [facility] ready vac. Sent referral to Norah, pt needs more double lumen picc line extentions. Await ready vac approval. Uploaded documents to [employer]. Await insurance approval. Phoned [facility] liaison/Anabela to check on I ready vac approval, await call back with update. Sent scripts to [employer] to arrange a delivery time with pt. Anabela will call back in 20-30 minutes with an update, [facility] rep is now reviewing vac order. Pt's insurance requires 30 days consecutive dressing changes before authorizing wound vac. Wound was surgically created on 05/04/2024. Phoned Shereen/TATI @ plastic surgery clinic and she wants pt to continue wet to dry twice a day and she will see pt on Thursday for her appointment. Phoned Anabela at [facility] and changed vac order to home delivery when insurance approved. Updated pt's RN Itzel, pt due for dressing change today. Discussed DC IV ATB with ID and [employer] is delivering to pt's home at 5pm. [facility] 05-26-2024 Note -Continue with Keron jim [facility] 05-26-2024 Note - Currently on amika jarvis, clofazimine, primaxin. discussed with ID, we will be discontinuing ceftaroline due to the reaction that she is experiencing. plan to arrange for follow-up with allergy given her history of physical cyclin allergy and her need for the doxycycline, She is scheduled 05/31/24. [facility] 05-26-2024 Note -Baseline, continue monitoring. [facility] 05-26-2024 Note -Left side - Arranging for wound VAC as an outpatient. [facility] 05-26-2024 Note -Status post mastect donis, she follow-up with oncology as an outpatient. [facility] 05-26-2024 Note -Monitor and replace accordingly [facility] 05-26-2024 Note -Controlled, continue monitoring . [facility] 05-26-2024 Note -No signs of overt b leeding. Continue monitoring. [facility] 05-26-2024 Note - Antibiotics as above. Jesi henry [facility] 05-26-2024 Note Hospital Medicine Daily Progress Note - 05/26/2024 4:40 PM; Room: [address] [place] [address] Admission: 05/23/2024 4:20 PM; Length of stay: 3 days THE HOSPITALIST TEAM PREFERS TO USE [employer] FOR NON-URGENT COMMUNICATION 7AM-7PM. IF I DO NOT RESPOND WITHIN 20 MINUTES OR URGENT MATTERS, PLEASE CALL THROUGH THE UPHOLSTERY CUTTER. FROM 7PM-7AM, PLEASE PAGE [phone](COVR). Code Status: Full Code Barriers to Discharge: wound VAC arrangement Expected Discharge Date: in a.m. Discharge Destination: home Overview Patient is seen for evaluation and management of chest wall infection. 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 Patient presented to [facility] ED due to fever of 102. Subjective Examined at bedside, reported no new symptoms, no increase shortness of breath, no cough, no dysuria. headache resolved. Physical Exam Visit Vitals BP 136/86 Pulse 65 Temp 36.8 ???C (98.2 ???F) Resp 16 Intake/Output Summary (Last 24 hours) at 05/26/2024 1640 Last data filed at 05/26/2024 1112 Gross per 24 hour Intake 100 ml Output -- Net 100 ml Physical Exam Eyes: Pupils: Pupils are equal, round, and reactive to light. Cardiovascular: Rate and Rhythm: Normal rate and regular rhythm. Pulmonary: Effort: Pulmonary effort is normal. Breath sounds: Normal breath sounds. Abdominal: General: Bowel sounds are normal. Palpations: Abdomen is soft. Neurological: General: No focal deficit present. Mental Status: She is alert and oriented to person, place, and time. Estimated body mass index is 26.29 kg/m??? as calculated from the following: Height as of this encounter: 1.803 m (5' 11 ). Weight as of this encounter: 85.5 kg (188 lb 7.9 oz). Assessment and Plan Assessment & Plan Mycobacterium abscessus infection - Currently on amikacin, clofazimine, primaxin. discussed with ID, we will be discontinuing ceftaroline due to the reaction that she is experiencing. plan to arrange for follow-up with allergy given her history of physical cyclin allergy and her need for the doxycycline, She is scheduled 05/31/24. Open wound of chest wall -Left side - Arranging for wound VAC as an outpatient. SIRS (systemic inflammatory response syndrome) (CMS/HCC) - Antibiotics as above. Invasive ductal carcinoma of breast, right (CMS/HCC) -Status post mastectomy, she follow-up with oncology as an outpatient. Iron deficiency anemia -No signs of overt bleeding. Continue monitoring. Pulmonary hypertension (CMS/HCC) -Baseline, continue monitoring. Essential (primary) hypertension -Controlled, continue monitoring. Hypokalemia -Monitor and replace accordingly Chronic deep vein thrombosis (DVT) of right lower extremity (CMS/HCC) -Continue with Eliquis VTE Prophylaxis: Eliquis Scheduled Meds amikacin, 750 mg, intravenous, q48h amikacin intermittent dosing, 1 each, Does not apply, RX Placeholder apixaban, 5 mg, oral, BID [Held by provider] ceftaroline, 600 mg, intravenous, q8h INV CLOFAZIMINE, 100 mg, oral, Once Daily cyanocobalamin, 1,000 mcg, oral, Daily droNABinol, 2.5 mg, oral, BID AC ferrous sulfate, 325 mg, oral, BID with meals folic acid, 1 mg, oral, Daily gabapentin, 300 mg, oral, BID imipenem-cilastatin, 1,000 mg, intravenous, q12h magnesium oxide, 400 mg, oral, Daily metoprolol succinate XL, 100 mg, oral, Daily potassium chloride CR, 20 mEq, oral, BID with meals pyridoxine, 50 mg, oral, Daily Pertinent Investigations Hematology: Results from last 7 days Lab Units 05/26/24 0510 05/25/24 0634 WBC AUTO 10*3/uL 2.08* 2.68* HEMOGLOBIN g/dL 7.8* 7.5* HEMATOCRIT % 23.2* 22.8* MCV fL 88.9 91.6 PLATELETS AUTO 10*3/uL 114* 151 Chemistry: Results from last 7 days Lab Units 05/26/24 0510 05/25/24 0634 05/24/24 0625 SODIUM mmol/L 142 138 138 POTASSIUM mmol/L 3.4* 3.5 3.0* CHLORIDE mmol/L 110* 105 106 CO2 mmol/L 28 26 26 BUN mg/dL 7 8 9 CREATININE mg/dL 0.56* 0.69 0.60 GLUCOSE mg/dL 79 79 92 MAGNESIUM mg/dL -- -- 1.6* CALCIUM mg/dL 8.1* 8.0* 8.1* Results from last 7 days Lab Units 05/23/24 1632 AST U/L 87* ALT U/L 26 ALK PHOS U/L 70 BILIRUBIN TOTAL mg/dL 0.7 Historical Values: (Includes values prior to this admission) No results found for: PREALBUMIN , TSH , T3FREE , FREET4 , CORTISOL , FEV1 , SOD9VBZ , DLCO , RVSP , HDL , LDL No results found for: ENMSAZEM30 , IRON , TIBC , C3 , C4 , JUSTIN , CANCA , ASO , PSA , CEA , CA125 , CA199 , AFP , CA153 Imaging US abdomen limited liver Narrative: US ABDOMEN LIMITED LIVER 05/24/2024 11:12 AM CLINICAL INDICATIONS: Elevated liver function tests COMPARISON: None. FINDINGS: The visualized portions of the pancreatic body and neck are normal. The pancreatic duct measures approximately 2 to 3 mm. The liver is diffusely echogenic possibly due to hepatic steatosi (more content not included)... [facility] 05-26-2024 Note 05/26/24 1351 Referral Data Referral Source composition siding worker Referral Reason Follow up;Information Patient Information Primary Caregiver Self Activities of Daily Living Assistive Device Not applicable Ambulation Independent Dressing Independent Feeding Independent Behavior Oriented Communication Talks;Understands speaking;Understands [place] Discharge Planning Living Arrangements Spouse/significant other;Parent (with fiance and elderly mother) Support Systems Spouse/significant other;Parent Type of Residence Private residence Post Acute Services Other (Comment) (needs wound vac & outpt dressing changes@[facility]) Patient's goal for discharge Home with wound vac and outpt dressing changes Does the patient need discharge transport arranged? No (Gemma) Met with pt to follow up with DC planning. Pt reported she is going to the [facility] center for twice a week dressing changes. Phoned Carla DAVENPORT at [facility] [phone], left message. Spoke with Carla, she will send wound vac form via email. Will follow with [employer] ready vac referral for insurance auth. Carla confirmed pt will follow with twice a week dressing changes at [facility] for wound vac upon DC. And once a week visits to [facility] clinic. [facility] 05-26-2024 Note Infectious Diseases - Inpatient daily Progress Note - Patient name: Ike Flannery Patient Today's Date and Time: 05/26/2024, 11:53 AM Admission Date: 05/23/2024 Assessment/Plan Impression: Fever - Likely Drug Reaction to Ceftaroline. The patient described symptoms of nausea, headaches, chills, and fevers as high as 102.7F with administration of Ceftaroline. An extensive ROS remained negative otherwise. Her presentation is not consistent with meningitis. 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 While she does have a CXR showing RLL abnormality, she does not have any respiratory symptoms or hypoxia that would be expected from pneumonia. US abdomen reported a mild CBD dilation of 8 mm but she has no abdominal symptoms and her bilirubin/ALP are both WNL. Blood cultures here show NGTD. Given her description of fevers/chills being triggered by Ceftaroline infusion, and cessation of her fevers and other symptoms with stopping of Ceftaroline, it appears that her febrile episodes were indeed a drug reaction to Ceftaroline even though it is not known to typically cause these fevers. Of note, the fevers started about 10 days after starting Ceftaroline which is within the expected timeframe of a drug reaction. 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 Unfortunately, the Mycobacterium is relatively resistant and she is on a complicated antimicrobial regimen of clofazimine, imipenem, amikacin, and ceftaroline. The wound remains nicely healed and now has a wound vac in place. It is unlikely that the surgical site infection is the cause of her current fevers. The Ceftaroline was stopped due to the drug reaction as described above. Hx Left Breast Mastectomy - Surgically removed, due to concerns of breast cancer, complicated by Mycobacterium abscessum infection as described above. Recommendations: Ceftaroline has been stopped. Continue current Imipenem dose at Q12H. Continue Amikacin and Clofazimine. We have reached out to [facility] in consultation for treatment of her mycobacterium. An Inpatient consult to Allergy has been placed to see if they can desensitize her to Tetracyclines so that Doxycycline can be added to her regimen. Her outpatient ID provider, Dr. Lui, has been contacted and is receiving regular updates. Subjective Interval history: The patient reports feeling well today. The episodes of fevers and shakes have completely stopped with the stopping of the Ceftaroline, and she had no further episodes or recorded fevers overnight. She denies any cough, SOB, or any other symptoms. Objective Physical Examination: BP 136/86 Pulse 65 Temp 36.8 ???C (98.2 ???F) Resp 16 Ht 1.803 m (5' 11 ) Wt 85.5 kg (188 lb 7.9 oz) SpO2 98% BMI 26.29 kg/m??? Temperature Range: Temp: 36.8 ???C (98.2 ???F) Temp Av.6 ???C (97.9 ???F) Min: 36.4 ???C (97.5 ???F) Max: 36.8 ???C (98.2 ???F) General Appearance: Awake, alert, and in no apparent distress, nontoxic. Eyes: Sclera anicteric; conjunctivae clear ENT: Oropharynx clear, without erythema, exudate, no thrush. Dentition Good dentition Neck: Supple, without lymphadenopathy. Pulmonary/Chest: clear to auscultation, no wheezes or rales, and unlabored breathing Cardiovascular: Regular rate and rhythm without murmurs Abdomen: soft, non-tender, nondistended, no palpable masses no organomegaly; normal bowel sounds Extremities: No cyanosis, edema, no joint effusions. Left PICC line in place without obvious abnormalities. Neurologic: Alert and oriented x 3, nonfocal. strength and sensation grossly normal Skin: Wound vac placed over left chest lesion, with no acute abnormalities noted on surgical site. No other rash no lesions. No pallor. Laboratory data: I have independently reviewed the following labs: Results from last 7 days Lab Units 05/26/24 0510 05/25/24 0634 05/24/24 0605/23/24 1632 WBC AUTO 10*3/uL 2.08* 2.68* 2.10* 6.69 HEMOGLOBIN g/dL 7.8* 7.5* 8.3* 9.5* HEMATOCRIT % 23.2* 22.8* 25.5* 29.0* MCV fL 88.9 91.6 92.4 92.9 PLATELETS AUTO 10*3/uL 114* 151 193 220 NEUTROS ABS 10*3/uL -- -- 1.1* 6.1 EOS ABS MAN 10*3/uL -- -- 0.16 0.10 BASOS ABS MAN 10*3/uL -- -- 0.01 0.01 Results from last 7 days Lab Units 05/26/24 0510 05/25/24 0634 05/24/24 0625 05/23/24 1632 POTASSIUM mmol/L 3.4* 3.5 3.0* 3.5 CHLORIDE mmol/L 110* 105 106 102 CO2 mmol/L 28 26 26 25 BUN mg/dL 7 8 9 9 CREATININE mg/dL 0.56* 0.69 0.60 0.73 GLUCOSE mg/dL 79 79 92 103* CALCIUM mg/dL 8.1* 8.0* 8.1* 8.7 ALK PHOS U/L -- -- -- 70 ALT U/L -- -- -- 26 AST U/L -- -- -- 87* Results from last 7 days L (more content not included)... [facility] 05-26-2024 Note Pharmacy Dosing Serv ice - Aminoglycosides Daily IVent Amikacin Started 04/15/24 Indication: Non-tuberculosis mycobacterium (NTM) infection -Target Peak: 30-35 (can also target 20-35 based on tolerability) -Target Trough: Undetectable Other Antimicrobial Regimens: Imipenem-cilastatin and clofazimine. Ceftaroline on hold currently -Missed administrations? no -New Microbiology results? no -Renal function stable? yes -Date of last level evaluation? 05/25/24 Temp (24hrs), Av.6 ???C (97.9 ???F), Min:36.4 ???C (97.5 ???F), Max:36.8 ???C (98.2 ???F) Lab Results Component Value Date WBC 2.08 (L) 05/26/2024 WBC 2.68 (L) 05/25/2024 WBC 2.10 (L) 05/24/2024 Lab Results Component Value Date BUN 7 05/26/2024 BUN 8 05/25/2024 BUN 9 05/24/2024 CREATININE 0.56 (L) 05/26/2024 CREATININE 0.69 05/25/2024 CREATININE 0.60 05/24/2024 Plan -Random amikacin level returned 0.9 this AM (approximately 30h level). Given this is not a true trough, expect amikacin trough on a thrice weekly 750 mg amikacin to be undetectable. -Will resume amikacin 750 mg today and 05/28/24. On 05/30/24 will adjust regimen to be MWF again -Next levels on 05/28/24 (peak) and 05/30/24 (random with AM labs) -Check BUN/SCr daily [facility] 05-25-2024 Note -Source is likely th e chest wall wound. 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 -Infectious disease on board, currently on amikacin, ceftaroline, imipenem-cilastatin -Vascular wound care consulted [facility] 05-25-2024 Note -Continue with Keron jim [facility] 05-25-2024 Note -Status post mastect donis, she follow-up with oncology as an outpatient. [facility] 05-25-2024 Note -Controlled, continue monitoring . [facility] 05-25-2024 Note -Monitor and replace accordingly [facility] 05-25-2024 Note -Unclear source of i nfection. 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 [facility] 05-25-2024 Note -Baseline, continue monitoring. [facility] 05-25-2024 Note -Left side, wound care consulted [facility] 05-25-2024 Note -No signs of overt b leeding. Continue monitoring. [facility] 05-25-2024 Note Hospital Medicine Daily Progress Note - 05/25/2024 12:36 PM; Room: [address] [place] [address] Admission: 05/23/2024 4:20 PM; Length of stay: 2 days THE HOSPITALIST TEAM PREFERS TO USE [employer] FOR NON-URGENT COMMUNICATION 7AM-7PM. IF I DO NOT RESPOND WITHIN 20 MINUTES OR URGENT MATTERS, PLEASE CALL THROUGH THE UPHOLSTERY CUTTER. FROM 7PM-7AM, PLEASE PAGE [phone](COVR). Code Status: Full Code Barriers to Discharge: Sepsis rule out, evaluation by infectious disease Expected Discharge Date: 2 to 3 days Discharge Destination: home Overview Patient is seen for evaluation and management of chest wall infection. 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 Patient presented to [facility] ED due to fever of 102. Subjective Examined at bedside, reported no new symptoms, no increase shortness of breath, no cough. Continues to have headache but is less intense compared to yesterday. Poor appetite, positive bowel movement. Physical Exam Visit Vitals BP 126/86 (BP Location: Left wrist, Patient Position: Sitting) Pulse 81 Temp 36.8 ???C (98.3 ???F) (Temporal) Resp 16 Intake/Output Summary (Last 24 hours) at 05/25/2024 1236 Last data filed at 05/25/2024 0241 Gross per 24 hour Intake 1635 ml Output -- Net 1635 ml Physical Exam Eyes: Pupils: Pupils are equal, round, and reactive to light. Cardiovascular: Rate and Rhythm: Normal rate and regular rhythm. Pulmonary: Effort: Pulmonary effort is normal. Breath sounds: Normal breath sounds. Abdominal: General: Bowel sounds are normal. Palpations: Abdomen is soft. Neurological: General: No focal deficit present. Mental Status: She is alert and oriented to person, place, and time. Estimated body mass index is 26.69 kg/m??? as calculated from the following: Height as of this encounter: 1.803 m (5' 11 ). Weight as of this encounter: 86.8 kg (191 lb 5.8 oz). Assessment and Plan Assessment & Plan SIRS (systemic inflammatory response syndrome) ([facility]) -Unclear source of infection. 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 Iron deficiency anemia -No signs of overt bleeding. Continue monitoring. Open wound of chest wall -Left side, wound care consulted Pulmonary hypertension ([facility]) -Baseline, continue monitoring. Mycobacterium abscessus infection -Management as above. Essential (primary) hypertension -Controlled, continue monitoring. Hypokalemia -Monitor and replace accordingly Chronic deep vein thrombosis (DVT) of right lower extremity ([facility]/HCC) -Continue with Eliquis VTE Prophylaxis: Eliquis Scheduled Meds amikacin intermittent dosing, 1 each, Does not apply, RX Placeholder apixaban, 5 mg, oral, BID ceftaroline, 600 mg, intravenous, q8h INV CLOFAZIMINE, 100 mg, oral, Once Daily cyanocobalamin, 1,000 mcg, oral, Daily droNABinol, 2.5 mg, oral, BID AC ferrous sulfate, 325 mg, oral, BID with meals folic acid, 1 mg, oral, Daily gabapentin, 300 mg, oral, BID imipenem-cilastatin, 1,000 mg, intravenous, q8h magnesium oxide, 400 mg, oral, Daily metoprolol succinate XL, 100 mg, oral, Daily potassium chloride CR, 20 mEq, oral, BID with meals pyridoxine, 50 mg, oral, Daily Pertinent Investigations Hematology: Results from last 7 days Lab Units 05/25/24 0634 05/24/24 06 WBC AUTO 10*3/uL 2.68* 2.10* HEMOGLOBIN g/dL 7.5* 8.3* HEMATOCRIT % 22.8* 25.5* MCV fL 91.6 92.4 PLATELETS AUTO 10*3/uL 151 193 Chemistry: Results from last 7 days Lab Units 05/25/24 0634 05/24/24 0625 05/23/24 1632 SODIUM mmol/L 138 138 134* POTASSIUM mmol/L 3.5 3.0* 3.5 CHLORIDE mmol/L 105 106 102 CO2 mmol/L 26 26 25 BUN mg/dL 8 9 9 CREATININE mg/dL 0.69 0.60 0.73 GLUCOSE mg/dL 79 92 103* MAGNESIUM mg/dL -- 1.6* -- CALCIUM mg/dL 8.0* 8.1* 8.7 Results from last 7 days Lab Units 05/23/24 1632 AST U/L 87* ALT U/L 26 ALK PHOS U/L 70 BILIRUBIN TOTAL mg/dL 0.7 Historical Values: (Includes values prior to this admission) No results found for: PREALBUMIN , TSH , T3FREE , FREET4 , CORTISOL , FEV1 , OBT2VLQ , DLCO , RVSP , HDL , LDL No results found for: OPTWTXGN22 , IRON , TIBC , C3 , C4 , JUSTIN , CANCA , ASO , PSA , CEA , CA125 , CA199 , AFP , CA153 Imaging US abdomen limited liver Narrative: US ABDOMEN LIMITED LIVER 05/24/2024 11:12 AM CLINICAL INDICATIONS: Elevated liver function tests COMPARISON: None. FINDINGS: The visualized portions of the pancreatic body and neck are normal. The pancreatic duct measures approxi (more content not included)... [facility] 05-25-2024 Note Infectious Diseases - Inpatient daily Progress Note - Patient name: Ike Flannery Patient Today's Date and Time: 05/25/2024, 9:34 AM Admission Date: 05/23/2024 Assessment/Plan Impression: Fever - Unspecified etiology. She continues to report symptoms of nausea, headache, fever, and chills with 102.7F noted overnight. An extensive ROS remains negative at this time. Her presentation is not consistent with meningitis. 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 While she does have a CXR showing RLL abnormality, she does not have any respiratory symptoms or hypoxia that would be expected from pneumonia. US abdomen reported a mild CBD dilation of 8 mm but she has no abdominal symptoms and her bilirubin/ALP are both WNL. Blood cultures were negative at an outside facility, currently pending here. Given her description of fevers/chills being triggered by Teflaro infusion, possible etiologies include either her PICC line itself or an adverse drug reaction to Teflaro (although Teflaro is not known to typically cause fevers). Unfortunately, we do not have good options for IV access if the PICC Line is removed. 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 Unfortunately, the Mycobacterium is relatively resistant and she is on a complicated antimicrobial regimen of clofazimine, imipenem, amikacin, and ceftaroline. The wound remains nicely healed and now has a wound vac in place. It is unlikely that the surgical site infection is the cause of her current fevers. Hx Left Breast Mastectomy - Surgically removed, due to concerns of breast cancer, complicated by Mycobacterium abscessum infection as described above. Recommendations: Continue current doses of IV Ceftaroline, IV Clofazimine, amikacin, and Imipenem. Given the complex and resistant nature of her Mycobacterium abscessum, we will avoid cessation or significant adjustments of her medication regimen as much as possible. Continue to follow and monitor blood cultures. Removal/replacement of PICC line is being considered. Wound care for left chest wall. Subjective Interval history: The patient reports feeling better today. However, she describes a phenomenon of shakes whenever she received the Ceftaroline through her PICC line. She continues to report fever, headache, nausea, and poor appetite. She denies any cough, SOB, obvious abnormalities with her PICC line, or any other symptoms. Objective Physical Examination: BP 126/86 (BP Location: Left wrist, Patient Position: Sitting) Pulse 81 Temp 36.8 ???C (98.3 ???F) (Temporal) Resp 16 Ht 1.803 m (5' 11 ) Wt 86.8 kg (191 lb 5.8 oz) SpO2 97% BMI 26.69 kg/m??? Temperature Range: Temp: 36.8 ???C (98.3 ???F) Temp Av.4 ???C (99.4 ???F) Min: 36.5 ???C (97.7 ???F) Max: 39.3 ???C (102.7 ???F) General Appearance: Awake, alert, and in no apparent distress, nontoxic Eyes: Sclera anicteric; conjunctivae clear ENT: Oropharynx clear, without erythema, exudate, no thrush. Dentition Good dentition Neck: Supple, without lymphadenopathy. Pulmonary/Chest: clear to auscultation, no wheezes or rales, and unlabored breathing Cardiovascular: Regular rate and rhythm without murmurs Abdomen: soft, non-tender, nondistended, no palpable masses no organomegaly; normal bowel sounds Extremities: No cyanosis, edema, no joint effusions. Left PICC line in place without obvious abnormalities. Neurologic: Alert and oriented x 3, nonfocal. strength and sensation grossly normal Skin: Wound vac placed over left chest lesion, with no acute abnormalities noted on surgical site. No other rash no lesions. No pallor Laboratory data: I have independently reviewed the following labs: Results from last 7 days Lab Units 05/25/24 0634 05/24/24 0625 05/23/24 1632 WBC AUTO 10*3/uL 2.68* 2.10* 6.69 HEMOGLOBIN g/dL 7.5* 8.3* 9.5* HEMATOCRIT % 22.8* 25.5* 29.0* MCV fL 91.6 92.4 92.9 PLATELETS AUTO 10*3/uL 151 193 220 NEUTROS ABS 10*3/uL -- 1.1* 6.1 EOS ABS MAN 10*3/uL -- 0.16 0.10 BASOS ABS MAN 10*3/uL -- 0.01 0.01 Results from last 7 days Lab Units 05/25/24 0634 05/24/24 0625 05/23/24 1632 POTASSIUM mmol/L 3.5 3.0* 3.5 CHLORIDE mmol/L 105 106 102 CO2 mmol/L BUN mg/dL 8 9 9 CREATININE mg/dL 0.69 0.60 0.73 GLUCOSE mg/dL 79 92 103* CALCIUM mg/dL 8.0* 8.1* 8.7 ALK PHOS U/L -- -- 70 ALT U/L -- -- 26 AST U/L -- -- 87* Results from last 7 days Lab Units 05/24/24 0230 SED RATE mm/hr 3 Results from last 7 days Lab Units 05/24/24 0241 GLUCOSE U MG/DL mg/dL Normal UROBILINOGEN URINE mg/dL Normal BILIRUBIN U Negative No lab exists for component: TOXI (more content not included)... 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 Left mastectomy for prophylaxis Currently afebrile but was febrile around 1900 after administering clofazamine to 102F Current antibiotic is amikacin, clofazamine, ceftaroline, and imipenem Wound has no erythema or drainage Recommendations: See 05/26/2024 note Subjective Interval history: Febrile with a temp of 102 and rigors right after infusion of Clofazamine around 1900 yesterday. Patient has been afebrile since then. She reports that she thinks her fevers are due to that infusion since even over the weekend when she did the infusions she noticed that she got the fevers right after the clofazamine was administered. She notes that her headache is still there and she does not have an appetite . She is still drinking lots of water Objective Physical Examination: BP 128/77 Pulse 85 Temp 37.1 ???C (98.8 ???F) Resp 16 Ht 1.803 m (5' 11 ) Wt 86.8 kg (191 lb 5.8 oz) SpO2 96% BMI 26.69 kg/m??? Temperature Range: Temp: 37.1 ???C (98.8 ???F) Temp Av.6 ???C (99.7 ???F) Min: 36.5 ???C (97.7 ???F) Max: 39.3 ???C (102.7 ???F) Physical Exam Constitutional: Appearance: She is not ill-appearing. Eyes: General: No scleral icterus. Extraocular Movements: Extraocular movements intact. Pupils: Pupils are equal, round, and reactive to light. Cardiovascular: Rate and Rhythm: Regular rhythm. Pulmonary: Effort: Pulmonary effort is normal. Breath sounds: Normal breath sounds. No wheezing. Abdominal: General: Abdomen is flat. Palpations: Abdomen is soft. Tenderness: There is no abdominal tenderness. Musculoskeletal: Right lower leg: No edema. Left lower leg: No edema. Skin: Findings: Lesion (left chest wall wound) present. Neurological: General: No focal deficit present. Mental Status: She is alert. Laboratory data: I have independently reviewed the following labs: Results from last 7 days Lab Units 05/25/24 0634 05/24/24 0605/23/24 1632 WBC AUTO 10*3/uL 2.68* 2.10* 6.69 HEMOGLOBIN g/dL 7.5* 8.3* 9.5* HEMATOCRIT % 22.8* 25.5* 29.0* MCV fL 91.6 92.4 92.9 PLATELETS AUTO 10*3/uL 151 193 220 NEUTROS ABS 10*3/uL -- 1.1* 6.1 EOS ABS MAN 10*3/uL -- 0.16 0.10 BASOS ABS MAN 10*3/uL -- 0.01 0.01 Results from last 7 days Lab Units 05/25/24 0634 05/24/24 0625 05/23/24 1632 POTASSIUM mmol/L 3.5 3.0* 3.5 CHLORIDE mmol/L 105 106 102 CO2 mmol/L 26 26 25 BUN mg/dL 8 9 9 CREATININE mg/dL 0.69 0.60 0.73 GLUCOSE mg/dL 79 92 103* CALCIUM mg/dL 8.0* 8.1* 8.7 ALK PHOS U/L -- -- 70 ALT U/L -- -- 26 AST U/L -- -- 87* Results from last 7 days Lab Units 05/24/24 0230 SED RATE mm/hr 3 Results from last 7 days Lab Units 05/24/24 0241 GLUCOSE U MG/DL mg/dL Normal UROBILINOGEN URINE mg/dL Normal BILIRUBIN U Negative No lab exists for component: TOXIGENICC Imaging Studies: I have reviewed myself the following imaging studies performed in the past 3 days: XR chest 1 view Result Date: 05/23/2024 * No radiographic evidence of acute cardiopulmonary abnormality. * Left PICC line with tip overlying the proximal SVC. Approved by:Emmanuelle Storm05/23/2024 6:42 PM. I, Brice Sanders,have reviewed the image(s) and agree with the findings in this report. Electronically signed: Brice Sanders. No CT results found for the past 3 days No MRI results found for the past 3 days Cultures: No results found for any visits on 05/23/24. Medications: amikacin intermittent dosing, 1 each, Does not apply, RX Placeholder apixaban, 5 mg, oral, BID ceftaroline, 600 mg, intravenous, q8h INV , 100 mg, oral, Once Daily cyanocobalamin, 1,000 mcg, oral, Daily ferrous sulfate, 325 mg, oral, BID with meals folic acid, 1 mg, oral, Daily gabapentin, 300 mg, oral, BID imipenem-cilastatin, 1,000 mg, intravenous, q8h magnesium oxide, 400 mg, oral, Daily metoprolol succinate XL, 100 mg, oral, Daily potassium chloride CR, 20 mEq, oral, BID with meals pyridoxine, 50 mg, oral, Daily Thank you for allowing us to participate in the care of this patient. [facility] Infectious Diseases Please contact us via [employer] during business hours. If no response in 15 min, call / page through the resizer operator Jossy Moody MD [facility] Infectious Diseases [phone] [facility] 05-24-[address] [facility] Vascular Surgery/Wound Care CONSULTATION Reason for Consult: left breast wound Subjective History of Present Illness: Ike Flannery is a 53 y.o. female with a . past medical history hypertension, anemia, breast cancer, s/p double mastectomies that was complicated by a left chest wall abscess secondary to Mycobacterium infection back in October who is admitted with a three day history of fevers/chills . She has had two debridements of the abscess earlier this month. She has been on amikacin, imipenem, clofazamine, ceftaroline for her infection. Vascular wound care consulted for evaluation of her left chest wound. Patient reports that the wound has been improving. They have been using packing at home and her wound care/plastic surgery provider had ordered a wound VAC for her. She did have plans to go to both [employer] and [email or web address] for wound VAC changes. She does have known undermining at the 12 o'clock position which she reports was 7 cm last week. She reports the wound continues to improve. Patient denies any foul odor, purulent drainage, increase in pain in her wound. Review of Systems 10 point ROS reviewed and negative with exception of that mentioned in HPI Past Medical History: Diagnosis Date Cancer (CMS/HCC) Hypertension Past Surgical History: Procedure Laterality Date ANTERIOR CRUCIATE LIGAMENT REPAIR HYSTERECTOMY Allergies Allergen Reactions Meperidine Swelling, Unknown and Other Adhesive Tape-Silicones Itching Daptomycin Other Tigecycline Hives Rash vomiting Vancomycin Other Intolerance: experienced acute kidney injury during a hospitalization, suspected due to vancomycin. Doxycycline Rash Current Facility-Administered Medications: alteplase (Cathflo Activase) injection 2 mg, 2 mg, intra-catheter, PRN, Ada Jacques MD, 2 mg at 05/23/24 8472 amikacin intermittent dosing placeholder, 1 each, Does not apply, RX Placeholder, Alyce Soria, SEPERANZA apixaban (Eliquis) tablet 5 mg, 5 mg, oral, BID, Grace Vivar MD, 5 mg at 05/24/24 1256 aemvnxrxji-foydxrgjyhler-bflt 50-325-40 mg per tablet 1 tablet, 1 tablet, oral, q6h PRN, Grace Vivar MD, 1 tablet at 05/24/24 1256 calcium carbonate (Tums) chewable tablet 500 mg, 500 mg, oral, Daily PRN, Ada Jacques MD ceftaroline (Teflaro) 600 mg in sodium chloride 0.9 % 100 mL IVPB, 600 mg, intravenous, q8h, Jossy Moody MD, 600 mg at 05/24/24 1249 cyanocobalamin (Vitamin B-12) tablet 1,000 mcg, 1,000 mcg, oral, Daily, Ada Jacques MD, 1,000 mcg at 05/24/24 0919 diazePAM (Valium) tablet 5 mg, 5 mg, oral, q12h PRN, Ada Jacques MD diclofenac (Voltaren) 1 % topical gel 2 g, 2 g, topical (top), 4x daily PRN, Ada Jacques MD ferrous sulfate tablet 325 mg, 325 mg, oral, BID with meals, Ada Jacques MD, 325 mg at 05/24/24 0808 folic acid (Folvite) tablet 1 mg, 1 mg, oral, Daily, Ada Jacques MD, 1 mg at 05/24/24 0808 gabapentin (Neurontin) capsule 300 mg, 300 mg, oral, BID, Ada Jacques MD, 300 mg at 05/24/24 0920 imipenem-cilastatin (Primaxin) 1,000 mg in sodium chloride 0.9 % 250 mL IVPB, 1,000 mg, intravenous, q8h, Jossy Moody MD, Stopped at 05/24/24 1111 INV (CLOFAZIMINE) 50 mg capsule capsule 100 mg, 100 mg, oral, Once Daily, Jossy Moody MD magnesium oxide (Mag-Ox) tablet 400 mg, 400 mg, oral, Daily, Ada Jaqcues MD, 400 mg at 05/24/24 0808 melatonin tablet 5 mg, 5 mg, oral, Nightly PRN, Ada Jacques MD metoprolol succinate XL (Toprol-XL) 24 hr tablet 100 mg, 100 mg, oral, Daily, Ada Jacques MD, 100 mg at 05/24/24 0808 ondansetron ODT (Zofran-ODT) disintegrating tablet 4 mg, 4 mg, oral, q8h PRN OR ondansetron HCl (PF) (Zofran) injection 4 mg, 4 mg, intravenous, q6h PRN, Ada Jacques MD, 4 mg at 05/24/24 1535 oxyCODONE (Roxicodone) immediate release tablet 5 mg, 5 mg, oral, q4h PRN, Ada Jacques MD, 5 mg at 05/24/24 0808 potassium chloride CR (Klor-Con M20) ER tablet 20 mEq, 20 mEq, oral, BID with meals, Ada Jacques MD, 20 mEq at 05/24/24 0808 prochlorperazine (Compazine) tablet 10 mg, 10 mg, oral, TID PRN, Ada Jacques MD pyridoxine (B-6) tablet 50 mg, 50 mg, oral, Daily, Ada Jacques MD, 50 mg at 05/24/24 0920 sennosides-docusate sodium (Heather-Colace) 8.6-50 mg per tablet 1 tablet, 1 tablet, oral, Daily PRN, Ada Jacques MD sodium chloride 0.9 % infusion, 100 mL/hr, intravenous, Continuous, Ada Jacques MD, Last Rate: 100 mL/hr at 05/24/24 1555, 100 mL/hr at 05/24/24 1555 [COMPLETED] Insert peripheral IV, , , Once AND [COMPLETED] Saline lock IV, , , Once AND sodium chloride flush 10 mL, 10 mL, intravenous, q8h PRN, Ada Jacques MD Social History Socioeconomic History Marital status: Spouse name: Not on file Number of children: Not on file Years of education: Not (more content not included)... [facility] 05-24-2024 Note Patient's Own Invest igational Medication This patient is continuing their home investigational medication during this admission. This medication is being used for treatment (expanded access program or compassionate use ) and is NOT research or a clinical trial. Information about https://www.fda.gov/news-events/e xpanded-access/erdnespb-aovina-jb formation-phys icians The patient's treating physicians (Dr. Jossy Moody/Dr. Herman Lui) are aware of the patient???s admission and status and have confirmed they should continue treatment while admitted to the hospital. 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 Powder Line Repairer (Sponsor-Supervisor Housecleaner): Dr. Herman Lui. *Dr. Jossy Moody is primary contact as of [id number].* Required Current Institutional Review Board Approval: YES, IRB of Record: [facility] IRB Required Current FDA Approval: YES, Single Patient Investigational New Drug Application, IND #[id number] Required Current IRB Approved Informed Consent Form Signed and available in medical records: YES, in [employer] Medication Name/Strength/Dosage Form: Clofazimine 50 mg capsule Prescribed label instructions: Take 2 capsules (xssl=016 mg) by mouth once a day with a high fat meal. Capsules are to be swallowed whole. Storage Conditions: Controlled Room Temperature Dispensing pharmacy: [facility] Investigational Drug Services (Clinical Research Pharmacist) Dispense Date: 05/24/2024 (new sealed stock bottle dispensed) Expiration Date: 12/30/2025 Drug Product Identification/Integrity: Sealed bottle. Verified by Clinical Research Pharmacist to the best extent possible. Day Supply On Hand: 50 (there are 100 capsules per bottle) Inpatient Dispensing *Stored in the inpatient pharmacy controlled substances [employer]. Due to high sensitivity of clofazimine capsules to moisture, keep in original container and only one dose (of 2 capsules) can be prepared/verified at a time. Please put capsules in a prescription vial and label with a tadpole. *See MAR for details. RN to call pharmacy at 16:00 (one hour before due time) for pharmacy to get ready. *Please ensure that patient is discharged with clofazimine supply. The remaining balance of clofazimine capsules does NOT need to be counted back on pill tray because the capsules roll too much. Summary of Adverse Effects/Monitoring (consent form has all adverse effects) *Qtc prolongation *Gastrointestinal (40%-50% for any of these five side effects): Stomach pain; Diarrhea; Nausea/vomiting; Upset stomach; Abdominal pain *The following serious adverse reactions have been reported with Lamprene???/Clofazimine: Abdominal obstruction and gastrointestinal adverse reactions. Splenic infarction (a condition in which the oxygen supply to the spleen is interrupted), gastrointestinal bleeding, and have been reported. Interactions with Clofazimine *Clofazimine is a moderate to strong cytochrome P450 3A4 inhibitor. *Certain opioids (oxycodone) may have concentrations increased by clofazimine. *Acid suppressive agents may decrease clofazimine levels. Please avoid proton pump inhibitors. Avoid famotidine if possible. *Concomitant medications that prolong Qtc and/or may cause hypokalemia may have additive risk with clofazimine. Qtc prolongation interpretation from https://crediblemeds.org/ *Conditional Risk of Torsades de Pointes (These drugs are associated with TdP BUT only under certain conditions of their use (e.g. excessive dose, in patients with conditions such as hypokalemia, or when taken with interacting drugs) OR by creating conditions that facilitate or induce TdP (e.g. by inhibiting metabolism of a QT-prolonging drug or by causing an electrolyte disturbance that induces TdP). Additional Clinical Information *Long Half-Life: clofazimine has a mean elimination half-life of clofazimine is approximately 25 days (range 6.5 to 160 days) following repeated oral doses of 50 or 100 mg clofazimine in leprosy patients. For questions, please reach out to Clinical Research Pharmacist Avi Tobar PharmD, BCPS at office phone [phone] (Thursday through Thursday, 07:30 AM to 4 PM). Outside of these hours, please contact the inpatient pharmacy at [phone]. [facility] 05-24-2024 Note Pharmacy Dosing Serv ice - Aminoglycosides Daily IVent Amikacin Started 04/15/24 Indication: Non-tuberculosis mycobacterium (NTM) infection -Target Peak: 30-35 (can also target 20-35 based on tolerability) -Target Trough: Undetectable Other Antimicrobial Regimens: Imipenem-cilastatin, ceftaroline, clofazimine -Missed administrations? no -New Microbiology results? no -Renal function stable? yes -Date of last level evaluation? 05/23/24 Temp (24hrs), Av ???C (98.6 ???F), Min:36.5 ???C (97.7 ???F), Max:38.2 ???C (100.8 ???F) Lab Results Component Value Date WBC 2.10 (L) 05/24/2024 WBC 6.69 05/23/2024 Lab Results Component Value Date BUN 9 05/24/2024 BUN 9 05/23/2024 CREATININE 0.60 05/24/2024 CREATININE 0.73 05/23/2024 Plan -Will check random amikacin level with AM labs on 05/25/24 before proceeding with further dosing or scheduling regimen -Amikacin peak returned 26.3 which is an improvement from last outpatient peak of 20.3, given hospitalization and recent dose adjustments will plan to continue current 750 mg thrice weekly regimen (MWF) if random level tomorrow is not elevated -Will consider further dose adjustments based on clinical course -Next levels on 05/25/24 with AM labs -Check BUN/SCr daily [facility] 05-24-2024 Note -Controlled, continue monitoring . [facility] 05-24-2024 Note -Monitor and replace accordingly [facility] 05-24-2024 Note -Management as above. [facility] 05-24-2024 Note -Baseline, continue monitoring. [facility] 05-24-2024 Note -No signs of overt b leeding. Continue monitoring. [facility] 05-24-2024 Note -Status post mastect donis, she follow-up with oncology as an outpatient. [facility] 05-24-2024 Note -Continue with [facility] 05-24-2024 Note -Left side, management as above. [facility] 05-24-2024 Note Hospital Medicine Daily Progress Note - 05/24/2024 1:12 PM; Room: [address] [place] [address] Admission: 05/23/2024 4:20 PM; Length of stay: 1 days THE HOSPITALIST TEAM PREFERS TO USE [employer] CHAT FOR NON-URGENT COMMUNICATION 7AM-7PM. IF I DO NOT RESPOND WITHIN 20 MINUTES OR URGENT MATTERS, PLEASE CALL THROUGH THE UPHOLSTERY CUTTER. FROM 7PM-7AM, PLEASE PAGE [phone](COVR). Code Status: Full Code Barriers to Discharge: Sepsis rule out, evaluation by infectious disease Expected Discharge Date: 2 to 3 days Discharge Destination: home Overview Patient is seen for evaluation and management of chest wall infection. 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 Patient presented to [facility] ED due to fever of 102. Subjective Examined at bedside, reported no new symptoms, continues to report headache, she had some relief with the Fioricet. No chest pain, shortness of breath, no lightheadedness. Physical Exam Visit Vitals BP 117/76 Pulse 73 Temp 36.8 ???C (98.2 ???F) Resp 16 Intake/Output Summary (Last 24 hours) at 05/24/2024 1312 Last data filed at 05/24/2024 1117 Gross per 24 hour Intake 1493.33 ml Output -- Net 1493.33 ml Physical Exam Eyes: Pupils: Pupils are equal, round, and reactive to light. Cardiovascular: Rate and Rhythm: Normal rate and regular rhythm. Pulmonary: Effort: Pulmonary effort is normal. Breath sounds: Normal breath sounds. Abdominal: General: Bowel sounds are normal. Palpations: Abdomen is soft. Neurological: General: No focal deficit present. Mental Status: She is alert and oriented to person, place, and time. Estimated body mass index is 26.54 kg/m??? as calculated from the following: Height as of this encounter: 1.803 m (5' 11 ). Weight as of this encounter: 86.3 kg (190 lb 4.1 oz). Assessment and Plan Assessment & Plan SIRS (systemic inflammatory response syndrome) (CMS/HCC) -Source is likely the chest wall wound. 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 -Infectious disease on board, currently on amikacin, ceftaroline, imipenem-cilastatin -Vascular wound care consulted Invasive ductal carcinoma of breast, right (CMS/HCC) -Status post mastectomy, she follow-up with oncology as an outpatient. Iron deficiency anemia -No signs of overt bleeding. Continue monitoring. Open wound of chest wall -Left side, management as above. Pulmonary hypertension (CMS/HCC) -Baseline, continue monitoring. Mycobacterium abscessus infection -Management as above. Essential (primary) hypertension -Controlled, continue monitoring. Hypokalemia -Monitor and replace accordingly Chronic deep vein thrombosis (DVT) of right lower extremity (CMS/HCC) -Continue with Eliquis VTE Prophylaxis: Eliquis Scheduled Meds amikacin intermittent dosing, 1 each, Does not apply, RX Placeholder apixaban, 5 mg, oral, BID ceftaroline, 600 mg, intravenous, q8h cyanocobalamin, 1,000 mcg, oral, Daily ferrous sulfate, 325 mg, oral, BID with meals folic acid, 1 mg, oral, Daily gabapentin, 300 mg, oral, BID imipenem-cilastatin, 1,000 mg, intravenous, q8h INV , 100 mg, oral, Once Daily magnesium oxide, 400 mg, oral, Daily metoprolol succinate XL, 100 mg, oral, Daily potassium chloride CR, 20 mEq, oral, BID with meals pyridoxine, 50 mg, oral, Daily sodium chloride, 100 mL/hr, Last Rate: 100 mL/hr (05/24/24 1117) Pertinent Investigations Hematology: Results from last 7 days Lab Units 05/24/24 0625 05/23/24 1632 WBC AUTO 10*3/uL 2.10* 6.69 HEMOGLOBIN g/dL 8.3* 9.5* HEMATOCRIT % 25.5* 29.0* MCV fL 92.4 92.9 PLATELETS AUTO 10*3/uL 193 220 Chemistry: Results from last 7 days Lab Units 05/24/24 0625 05/23/24 1632 SODIUM mmol/L 138 134* POTASSIUM mmol/L 3.0* 3.5 CHLORIDE mmol/L 106 102 CO2 mmol/L 26 25 BUN mg/dL 9 9 CREATININE mg/dL 0.60 0.73 GLUCOSE mg/dL 92 103* MAGNESIUM mg/dL 1.6* -- CALCIUM mg/dL 8.1* 8.7 Results from last 7 days Lab Units 05/23/24 1632 AST U/L 87* ALT U/L 26 ALK PHOS U/L 70 BILIRUBIN TOTAL mg/dL 0.7 Historical Values: (Includes values prior to this admission) No results found for: PREALBUMIN , TSH , T3FREE , FREET4 , CORTISOL , FEV1 , ITW2GVX , DLCO , RVSP , HDL , LDL No results found for: LWWIMCQS53 , IRON , TIBC , C3 , C4 , JUSTIN , CANCA , ASO , PSA , CEA , CA125 , CA199 , AFP , CA153 Imaging US abdomen limited liver Narrative: US ABDOMEN LIMITED LIVER 05/24/2024 11:12 AM CLINICAL INDICATIONS: Elevated liver function tests COMPARISON: None. FINDINGS: The visualized portions of the pancreatic body and neck are normal. The pancreatic duct measures approximately 2 to 3 mm. The liver is diffusely echogenic possibly due to hepatic steatosis. No definite fo (more content not included)... [facility] 05-24-2024 Note Adult Nutrition Asse ssment: Name: Ike Flannery Date: 1970 Date of Visit: 05/24/24 Admission Dx: Immunocompromised [D84.9] Fever, unspecified fever cause [R50.9] Reason for assessment: high risk (wt loss, wound) Information obtained from: patient, medical record, and nursing Past Medical History: Diagnosis Date Cancer (CMS/HCC) Hypertension Current Medications: amikacin intermittent dosing, 1 each, Does not apply, RX Placeholder apixaban, 5 mg, oral, BID ceftaroline, 600 mg, intravenous, q8h cyanocobalamin, 1,000 mcg, oral, Daily ferrous sulfate, 325 mg, oral, BID with meals folic acid, 1 mg, oral, Daily gabapentin, 300 mg, oral, BID imipenem-cilastatin, 1,000 mg, intravenous, q8h INV , 100 mg, oral, Once Daily magnesium oxide, 400 mg, oral, Daily metoprolol succinate XL, 100 mg, oral, Daily potassium chloride CR, 20 mEq, oral, BID with meals pyridoxine, 50 mg, oral, Daily sodium chloride, 100 mL/hr, Last Rate: 100 mL/hr (05/24/24 1117) Labs: 0 Lab Value Date/Time BUN 9 05/24/2024 0625 CREATININE 0.60 05/24/2024 0625 NA 138 05/24/2024 0625 K 3.0 (L) 05/24/2024 0625 MG 1.6 (L) 05/24/2024 0625 HGB 8.3 (L) 05/24/2024 0625 WBC 2.10 (L) 05/24/202425 Allergies: Allergies Allergen Reactions Meperidine Swelling, Unknown and Other Adhesive Tape-Silicones Itching Daptomycin Other Tigecycline Hives Rash vomiting Vancomycin Other Intolerance: experienced acute kidney injury during a hospitalization, suspected due to vancomycin. Doxycycline Rash Nutrition Problems: Swallowing Assessment: Denies difficulty swallowing Mouth: Teeth intact Abdominal Assessment: Last BM 05/21 per pt Appetite: Decreased for past several months Cognition: A/O x4 Nutrition Deficits Prior to Admission: Calories and protein NFPE, completed on (05/24/24): no signs or symptoms of muscle/fat depletion Skin Integrity: L chest wall wound Breast cancer s/p double mastectomy 10/28/23, complicated by L chest wall infected seroma. Washout and tissue putty mixer removal 11/27/23. I&D on 02/26/24 and 03/21/24. Nutrition Data/Clinical Indicators of Nutrition Status: Height: 180.3 cm (5' 11 ) Weight: 86.3 kg (190 lb 4.1 oz) BMI (Calculated): 26.55 Wt Readings from Last 10 Encounters: 05/24/24 86.3 kg (190 lb 4.1 oz) 04/20/24 92.1 kg (203 lb) 03/16/24 92.3 kg (203 lb 8 oz) 02/16/24 93 kg (205 lb) 01/15/24 93 kg (205 lb) 12/30/23 96.2 kg (212 lb) 12/11/23 95.3 kg (210 lb) 04/14/23 100 kg cardiology IBW: 70.5 kg Weight change: Pt reports 30 lbs wt loss since October 2023. 1 month: loss of 5.8 kg (6.3% = significant) 3 months: loss of 6.7 kg (7.2% = not clinically significant) 5 months: loss of 9.9 kg (10.3% = significant) 13 months: loss of 13.7 kg (13.7% = not clinically significant) Nutrition Assessment: Pt endorses decreased appetite since cancer dx and surgery in October 2023. She believes antibiotics have attributed to this and food has just not been appealing lately. She has good access to food at home but hasn't been eating much. Prior to surgery, pt worked out 5-6 days/wk and reports being very muscular. She has been unable to do this lately and reports significant change in body composition. She picks rather than eating large meals. She tries to prioritize protein intake and consumes 1 protein shake (unknown brand) per day at home. She prefers boost breeze over milky consistency and is open to trying other ONS upon admission. Discussed option of purchasing ONS through outpatient pharmacy at a discounted rate and gordons if she enjoys magic cup. Pt reports that she was recently at another hospital and was receiving jose: she was prescribed this for home but insurance wouldn't cover it so she has not been taking it. She is able to verbalize sources of protein in her diet. Encouraged pt to think of food as medicine and set alarm on her phone to remind her to eat to help improve overall intakes. Dietary Orders (From admission, onward) Start Ordered 05/23/242004 Regular Diet Heart Healthy/HTN, CABG,Stroke, (2gNA, low fat, low cholesterol) Diet effective now Question Answer Comment Room Service? Yes Fat restriction: Heart Healthy/HTN, CABG,Stroke, (2gNA, low fat, low cholesterol) 05/23/242004 Nutrition Risk: High Nutrition Needs: Needs based on: ideal body weight (70.5 kg) Calorie needs: 1143-5818 kcals/day based on Equation: 25-30 kcal/kg Protein needs: 85-706 g/day based on 1.2-1.5 g/kg Fluid needs: 2115 ml/day based on 30 ml/kg Nutrition Diagnosis: Increased nutrient needs r/t healing aeb presence of wound Unintentional wt loss r/t decreased appetite aeb pt report and wt loss per records Malnutrition Assessment: Per Registered Dietitian assessment and evaluation, patient does not currently meet criteria OR there is not enough information to support the diagnosis of malnutrition per the clinica (more content not included)... [facility] 05-23-2024 Note Pharmacy Dosing Serv ice - Aminoglycosides Daily IVent Amikacin: Started 04/15/24 Indication: Mycobacterium abscessus ABSSSI -Target Peak: 30-35 mcg/mL -Target Trough: <1 mcg/mL Other Antimicrobial Regimens: Home medications ceftaroline, clofazimine, and imipenem-cilastatin -Missed administrations? Unknown -New Microbiology results? no -Renal function stable? yes -Date of last level evaluation? Documented peak=62.8 collected 05/11 1450 60 minutes after end of infusion. Dose decreased to 750mg three times weekly Temp (24hrs), Av.2 ???C (98.9 ???F), Min:36.8 ???C (98.2 ???F), Max:38.2 ???C (100.8 ???F) Auto WBC Date/Time Value Ref Range Status 05/23/2024 04:32 PM 6.69 4.00 - 10.60 10*3/uL Final BUN Date/Time Value Ref Range Status 05/23/2024 04:32 PM 9 7 - 25 mg/dL Final Plan -Home infusion therapy of 750mg three times weekly (MWF). Last documented peak and trough in Epic from 05/11/24. Pt has not received dose due today. Will enter a once for this evening and a placeholder order. -Ordering peak level this evening post-dose -Check BUN/SCr daily Thank you, Jessica Morse, PharmD [facility] 05-23-2024 Note ID consult Follow-up on ESR [facility] 05-23-2024 Note Ferrous sulfate 1 tab twice linda y [facility] 05-23-2024 Note Normal saline at 100 mL/hour for next 10 hours ID consult Blood cultures, infectious workup is pending [facility] 05-23-2024 Note Hospital Medicine History and Physical 05/23/2024 10:14 PM THE HOSPITALIST TEAM PREFERS TO USE [employer] CHAT FOR NON-URGENT COMMUNICATION 7AM-7PM. IF I DO NOT RESPOND WITHIN 20 MINUTES OR URGENT MATTERS, PLEASE CALL THROUGH THE UPHOLSTERY CUTTER. FROM 7PM-7AM, PLEASE PAGE [phone](COVR). Chief Complaint Chief Complaint Patient presents with Fever History of Present Illness Ike Eason Widman is an 53 y.o. female who came from home with past medical history of hypertension, anemia, breast cancer, s/p double mastectomies that was complicated by a left chest wall abscess secondary to Mycobacterium infection. Patient is currently seeing infectious diseases and undergoing antibiotic treatment. Patient came to ER today because of fevers for the last 3 days. She states that she went to [facility] yesterday and got a full workup done which came back unremarkable. Patient's Tmax was at 103.6 today. Upon arrival to ER, it was 100.8. Patient is currently on IV amikacin, imipenem, ceftaroline and p.o. clofazimine for the Mycobacterium infection. She already underwent 2 debridements of her abscess. Currently it is packed. Patient denies increased tenderness or redness around the abscess area. The packing of the abscess was changed today in the morning. Yesterday, ER physician from [facility] called infectious disease specialist at [facility] and they recommended patient to be transferred to [place] but patient opted out to go home. She presented again today because she spiked a fever. Patient's blood cultures that were done yesterday in ER are still pending. Respiratory panel is negative. Patient denies dysuria, frequency of urination, diarrhea, cough, sore throat or ear pain. She only complains of headaches and intermittent chills. She had some mild nausea and vomited after she drank water too quickly. No abdominal pain. No chest pain. No increase shortness of breath. No sick contacts. Review of System and Physical Exam Temp: [36.8 ???C (98.2 ???F)-38.2 ???C (100.8 ???F)] 36.8 ???C (98.2 ???F) Heart Rate: [72-102] 78 Resp: [15-18] 17 BP: (118-171)/(73-100) 118/77 Physical Exam Constitutional: General: She is not in acute distress. Appearance: Normal appearance. HENT: Head: Normocephalic and atraumatic. Eyes: Conjunctiva/sclera: Conjunctivae normal. Cardiovascular: Rate and Rhythm: Normal rate and regular rhythm. Heart sounds: No murmur heard. No friction rub. No gallop. Pulmonary: Effort: Pulmonary effort is normal. No respiratory distress. Breath sounds: Normal breath sounds. No wheezing, rhonchi or rales. Abdominal: General: Abdomen is flat. There is no distension. Tenderness: There is no abdominal tenderness. Musculoskeletal: General: No swelling or deformity. Right lower leg: Edema (trace) present. Left lower leg: Edema (trace) present. Skin: General: Skin is warm and dry. Findings: Lesion (packed left chest wall wound) present. No rash. Neurological: General: No focal deficit present. Mental Status: She is alert and oriented to person, place, and time. Psychiatric: Mood and Affect: Mood normal. Behavior: Behavior normal. Thought Content: Thought content normal. Judgment: Judgment normal. Review of Systems as mentioned in HPI Assessment and Plan Assessment & Plan Fever, unspecified fever cause Normal saline at 100 mL/hour for next 10 hours ID consult Blood cultures, infectious workup is pending Iron deficiency anemia Ferrous sulfate 1 tab twice daily Mycobacterium abscessus infection ID consult Follow-up on ESR Immunocompromised Left chest wall wound secondary to Mycobacterium infection History of breast cancer, s/p bilateral mastectomies Elevated LFTs Hypertension History of DVT secondary to chemotherapy in July,, on Eliquis - held Plan: Patient will be admitted to [facility] telemetry bed. Liver ultrasound, hepatitis panel Protonix 40 mg p.o. daily for GI prophylaxis Patient's home medications were resumed, except antibiotics. Will let ID to resume them. Symptom control with as needed medications EPC cuffs VTE Prophylaxis: Lovenox ----- Focus of this inpatient stay will remain on problems that need acute care setting for care. We will review available studies and will order additional labs, imaging and other studies as appropriate. As needed medicines are ordered as appropriate. VTE Prophylaxis will be ordered as appropriate. Please see above for management plan for individual hospital problems. Home medications are reviewed and will be continued as appropriate. Patient will be continued to be followed during this hospital stay by a member of [facility]. Past Medical History Past Medical History: Diagnosis Date Cancer (CMS/HCC) Hypertension Past Surgical History Past Surgical History: Procedure Laterality Date ANTERIOR CRUCIATE LIGAMENT REPAIR HYSTERECTOMY Social History (more content not included)... [facility] 05-23-2024 Miscellaneous Notes Dental Assisting Instructor called this patient to see if she got some pre op labs done she is scheduled for surgery 05/26/24, patient stated had left breast surgery on 05/02/24 and has had some post op complications was in the hospital 11 days, had 2 debridements, bone marrow bx, pt rigger up Dr. Hope said he sent Dr. Sepulveda a message regarding this patient and would like to talk to Dr. Sepulveda about this pt and have her surgery cx'd with Dr. Sepulveda on 05/26/24, please call Dr. Hope when Dr. Sepulveda could call, pt was very admant abouting cx on 05/26/24 he said her body has been through a lot. Patients she will be having a PET scan in a couple of weeks and that will depend when you and Dr. Hernandez see how soon patient should have surgery or if it should wait. She is going to call the office back and make office appointment once she has a date for the PET scan, pt has office contact information, health science writer cx'd surgery. [facility]-23-[facility]24 Telephone encounter Note Dental Assisting Instructor called this patient to see if she got some pre op labs done she is scheduled for surgery 05/26/24, patient stated had left breast surgery on 05/02/24 and has had some post op complications was in the hospital 11 days, had 2 debridements, bone marrow bx, pt rigger up Dr. Hope said he sent Dr. Sepulveda a message regarding this patient and would like to talk to Dr. Sepulveda about this pt and have her surgery cx'd with Dr. Sepulveda on 05/26/24, please call Dr. Hope when Dr. Sepulveda could call, pt was very admant abouting cx on 05/26/24 he said her body has been through a lot. Patients she will be having a PET scan in a couple of weeks and that will depend when you and Dr. Hernandez see how soon patient should have surgery or if it should wait. She is going to call the office back and make office appointment once she has a date for the PET scan, pt has office contact information, health science writer cx'd surgery. [facility] 05-22-2024 Hospital Discharge instructions Follow Up Care 05/22/2024 18:55:47 With:HERMAN LUI Address: [address] [place] [address] When:05/25/2024 Comments:Call for diagnosis based follow up With:RANYD CALLE Address: [address] [place] [address] Business (1) When:Within 3 Day(s) [facility] 05-22-2024 Evaluation + Plan note Extrac tena from: Title:ED Note Author:Benji Deleon PA-C te:05/22/24 Body aches (R52: Pain, unspe cified) Fever (R50.9: Fever, unspecified) Head ache (R51.9: Headache, unspecified) Orders: acetaminophen + Generic Diluent 100 mL, 1,000 mg = 100 mL, Soln-IV, IV Piggyback, Once, Stop date 05/22/24 20:22:00 EDT, STAT, Start date 05/22/24 20:22:00 EDT, 400 mL/hr, Infuse over 15 minute(s) ondansetron, 4 mg = 2 mL, Injection, IV Push, Once, Stop date 05/22/24 20:22:00 EDT, STAT, Start date 05/22/24 20:22:00 EDT, 05/22/24 20:22:00 EDT oxycodone, 5 mg = 1 tab(s), Tab, Oral, Once, Stop date 05/22/24 22:12:00 EDT, STAT, Start date 05/22/24 22:12:00 EDT, 05/22/24 22:12:00 EDT Blood Culture Charcoal Blood Culture Charcoal CBC w/ Auto Diff Comprehensive Metabolic Panel eGFR Extra SST Tube Influenza A&B Ag Lactic Acid Lactic Acid PT & PTT Rapid COVID Antigen ([facility]) Respiratory Panel by PCR Troponin UA with Cult Rflx XR Chest Single View Diagnostic Tests Pending * Blood Culture Charcoal 05/22/24 * Blood Culture Charcoal 05/22/24 [facility] [id number] [facility] of Infectious Diseases Follow up Note Patient name: Ike Flannery Patient Today's Date and Time: 05/20/2024, 9:39 AM Admission Date: (Not on file) 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 Here to discuss clofazamine, has been approved by IRB, FDA and [facility]. Consent signed and reviewed with Avi Tobar, [facility], patient and myself. Updated Consent reviewed and signed on 05/20/24 Everyday, Thursday-Thursday for 20 days Radiation therapy- completed Keytruda starting on Thursday-continued. Oopherectomy planned On anastrozole. 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 Clofazimine JOSÉ MIGUEL remains <= 0.5 Imipenem remains at JOSÉ MIGUEL of 16 No JOSÉ MIGUEL creep noted. There is an additional culture from 03/21/24 that is pending, has been sent to [facility] for further work up. Awaiting those results as well. 05/20/2024 Wound vac to be placed soon on her left chest Currently on IV Amikacin, imipenem, ceftaroline, PO clofazimine. on Fibroid? PET scan in two weeks, plan on full body Allergy referrral: Tentative plan for omadacycline. Verzenio, just a week and then held. Narcan kit given, clofazimine can increase serum level of oxycodone Refills: 90 day for folic acid Recommendations: PO Tedizolid 200mg once daily-stopped Continue clofazamine 100mg once daily, started on 02/14 Continued Imipenem has been extended and redosed 1g q12hrs with improved renal function Addition of IV ceftaroline 600mg TID Amikacin continued 3 times a week, current dose 750mg, with goal peak 30-35 Will need monitoring labs and java jsf developer H/H if it remains persistently low may have to consider discontinuing tidezolid. Given the cessation of tidezolid have moved to a dual beta-lactam approach, would continue with amikacin and PO clofazimine as well. Discussed plans for allergy referral at [facility] to discuss omadacycline desensitization and allergy testing. At some point will need her towards an oral regimen, and limit her Ivs Subjective History of Present Illness: Since last visit patient was admitted to [facility] from 05/02 to 05/13. I had discussed with patient's plastic surgeon Dr. Gross that I was concerned about her left chest port and her continuing wound from the left breast area. After her appointment with me patient had sent in pictures of the wound dehiscing. I forwarded these pictures and my concerns to Dr. Gross's office who promptly had patient admitted to [facility] for left Mediport removal and additional debridement. While there she was continued on her IV amikacin, p.o. tedizolid, and oral clofazimine. She is initially receiving clofazimine at a lower dose of 50 mg however this was later corrected and she received her appropriate dose of 100 mg daily. Hospital course was complicated by significant cytopenias specifically low white count and thrombocytopenia I discussed with the ID pharmacist at [facility] tedizolid was discontinued and ceftaroline 600 mg 3 times daily was started. She had a significant number of debridements done during this hospital stay on 05/02 she had removal of her Mediport at that time she was found to have several open wounds along the left inframammary incision 1 x 2.5 cm medially, 2 x 7 cm centrally and 2 x 4 cm laterally. Debrided nonviable skin, subcutaneous tissue, muscle fascia and granulation tissue. Entire wound base contained fingerlike extensions throughout the subcutaneous tissue layer of chronic granulomatous tissue consistent with known Mycobacterium abscessus infection. Open wounds along the left inframammary incision directly communicated with the left upper chest wall chemotherapy port. Port removed and tip was sent for culture. On 05/04 she had further debridement patient's initial inframammary wound measured 21 x 24 cm the wound was relatively clean with no marlo purulence. No visible evidence of residual chronic granulomatous material was noted. However there was interval formation of new pink granulation tissue. Several scattered areas of residual nonviable skin, subcutaneous tissue and fascia were debrided from the wound. She had significant debridement until healthy bed of well-vascularized tissue with bright red bleeding was visualized. Final wound size was 21 x (more content not included)...[facility] 05-18-2024 History of Present illness Narrative* Shereen Smallwood PA-C - 05/18/2024 9:00 AM EDT [facility] Plastic & Reconstructive Surgery [address] Office Jhon Gross MD, PhD Marisela Cuevas, PLANNING LEAD-APPARATUS ENGINEERING TECHNOLOGIST Shereen Smallwood PA-C Plastic Surgery Progress Note Reason for visit : post-op History of present illness: Ike Flannery is a 53 y.o. female with a history of right breastcancer status post bilateral skin sparing mastectomies (He) and tissue putty mixer reconstruction in 10/28/2023. Her postoperative course was complicated by an infected seroma of her left breast requiring operative washout and tissue putty mixer removal 11/27/23. Intraoperative cultures demonstrated growth of [...] her left breast with removal of her port a catheterization. She returned again on 05/04/2024 for repeat debridement. Cultures from both surgeries were positive for mycobacterium abscesses. Oncology was consulted due to anemia and pancytopenia. The patient was given IVIG as well as an injection of Nivestym on 05/12/2024. At the time of discharge, her white blood count increased to 11 and absolute neutrophil count improved to 9.3. She tolerated the procedures well with no immediate comp lications. The patient's wound appeared healthy at discharge with granulation tissue. Her wound didextend up to the location of where the previous port was located.. She presents today for wound check. She states that she is tolerating the dressing changed with minimal discomfort and it has improved significantly from her hospital admission. The patient is doing well postoperatively. The patient denies fever, chills, redness or drainage from surgical wound(s). Review of Systems: Denies surgical site concerns. All other symptoms negative except as noted in HPI. Physical Examination: Vitals: 05/18/24 0908 BP: 151/90 Pulse: 84 Temp: 36.4 C (97.5 F) Body mass index is 26.89 kg/m . GENERAL: no acute distress, well developed, well nourished. LYMPHATIC: no upper extremity lymphedema NEUROLOGIC: alert and oriented to time, place and person. PSYCH: judgement and insight good, mood/affect full range. Focused examination : Left breast: 20cm x 5cm wound with approximately 7 cm of tunneling towards her previous port site proximally. The wound bed is healthy with granulation tissue. Depth is 3/4 cm No slough, no erythema, no calor. Lab Results Component Value Date WBC 11.0 05/13/2024 HGB 9.1 (L) 05/13/2024 HCT 26.6 (L) 05/13/2024 MCV 89 05/13/2024 PLT 109 (L) 05/13/2024 Impression: 1. Breast wound, left, sequela Recommendations: Patient's wound repacked with wet-to-dry dressing making sure to pack up towards the previous port site. Patient tolerated the dressing well. Discussed plans to order a [facility] wound vacin order to expedite the time to wound healing. Patient is open and agreeable to the treatment plan. Once the vac arrives, we will plan for twice weekly vac changes. SHEREEN SMALLWOOD PA-C Please note that portions of this note were generated using voice recognition M*Modal dictation software. Although every effort was made to ensure the accuracy of this automated control panel operator crude unit, some errors in control panel operator crude unit may have occurred. Shereen Smallwood PA-C 05/27/24 1323 documented in this encounterVan Wert County Hospital03-13-2025 Miscellaneous Notes* Telephone Encounter - Bobbymichaelle Otero - 05/12/2024 12:05 PM EDT Pt has unsafe tissue putty mixer for MRI. Nurse and MD aware. Orders cancelled documented in this encounterVan Wert County Hospital03-13-2025 Telephone encounter Note* Telephone Encounter - Bobbymichaelle Otero - 05/12/2024 12:05 PM EDT Pt has unsafe tissue putty mixer for MRI. Nurse and MD aware. Orders cancelled [facility]02-28-2025 History of Present illness Narrative* AMEENA Kennedy - 04/29/2024 9:27 AM EST Picc line order placed. AMEENA Kennedy 05/02/24 0746 documented in this encounterVan Wert County Hospital02-27-2025 NoteWound image from 04/27 was sent to plastic surgeon. Has shown progression from image sent the prior day.[facility]02-27-2025 NoteOn 04/27/2024 at 10:12, patient contacted Clinical Research Pharmacist Dr. Avi Tobar with concerns of hole in wound opening up more. I called Dr. Herman Lui, and he called the patient back and left a message with plastic surgeon Dr. Gross's office and sent them a picture of the wound. Avi Tobar, PharmD, BCPSUniversRegency Hospital Company02-27-2025 History of Present illness Narrative* Jhon Gross MD - 04/28/2024 3:15 PM EST [facility] Plastic & Reconstructive Surgery [address] Office Jhon Gross MD, PhD Marisela Cuevas, PLANNING LEAD-APPARATUS ENGINEERING TECHNOLOGIST INÉS King, PLANNING LEAD-APPARATUS ENGINEERING TECHNOLOGIST Plastic Surgery Progress Note Reason for visit : post-op History of present illness: Ike Flannery is a 53 y.o. female with a history of right breastcancer status post bilateral skin sparing mastectomies (He) and tissue putty mixer reconstruction in 10/28/2023. Her postoperative course was complicated by an infected seroma of her left breast requiring operative washout and tissue putty mixer removal 11/27/23. 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 She then developed a wound of her left breast requiring I&D of her left breast 02/26/24. Intraoperative tissue cultures were sent and again positive for mycobacterium. She again developed a left breast wound requiring I&D on 03/21/24. She presents to the office today for follow-up regarding her left breast wounds. She states that the wounds have continued open. She has packing them with wet-to-dry dressings. She continues to follow with Infectious Disease. She is also on Verzenio for her breast cancer. The patient is doing well postoperatively. The patient denies fever, chills, redness or drainage from surgical wound(s). Review of Systems: Denies surgical site concerns. All other symptoms negative except as noted in HPI. Physical Examination: Vitals: 04/28/24 1602 BP: 148/85 Pulse: 92 Temp: 36.6 C (97.9 F) There is no height or weight on file to calculate BMI. GENERAL: no acute distress, well developed, well nourished. LYMPHATIC: no upper extremity lymphedema NEUROLOGIC: alert and oriented to time, place and person. PSYCH: judgement and insight good, mood/affect full range. Focused examination : Left breast incision with wound present centrally. Wound with pink granular tissue present. No surrounding erythema. No necrosis is present. Small seroma drained in office today. Blister present to the medial and lateral portion of incision. Areas opened and draining serosanguineous fluid. No purulence present. Impression: 1. Encounter for postoperative care 2. Seroma of breast 3. S/P breast reconstruction, bilateral 4. Breast wound, left, sequela Recommendations: Discussed with patient that she continues to have dehiscence of her breast incision. To verbal consent was obtained medial and lateral portion of incision was opened using sterile scissors. Patient tolerated well. Discussed with patient continuing with wet-to-dry dressing changes at this time. Discussed that we would like to perform debridement of her left breast wound with removal of her left chemotherapy port next week. We will work on obtaining insurance authorization. We will likely plan for surgery on Thursday or Thursday. She will need a PICC placed prior to surgery. Risks, benefits and alternatives were discussed with patient. We also discussed that she will likely require an inpatient hospitalization after surgery to perform dressing changes. She is agreeable to this. We will contact patient once surgery scheduled. ER warning signs reviewed with patient. She was advised to call the office any questions or concerns in the interim. - AMEENA Rand 04/28/24 5:01 PM IJHON MD, PHD personally performed the face to face evaluation on this patient on April 28, 2024. The patient was seen with AMEENA Rand. I discussed with the patient and confirmed the accuracy and completeness of the aforementioned history, and I personally performedthe clinical examination of the patient. I have established and discussed the course of treatment with the patient. My medical decision making and treatment plan are as follows: Plan as above. Jhon Gross MD, PhD [facility] Total time spent was 25 minutes: Preparing to see the patient (e.g., review of tests) Obtaining and/or reviewing separately obtained history Performing a medically appropriate examination and/or evaluation Counseling and educating the patient/family/caregiver Ordering medications, tests, or procedures Referring and communicating with other health senior care provider (not separately reported) Documenting clinical information in the electronic or other health record Independently interpreting results (not separately reported) and communicating results to the patient/family/caregiver Care coordination (not separately reported) Please note that portions of this note were generated using voice recognition [id number] dictation software. Although every effort was made to ensure the accuracy of this automated control panel operator crude unit, some errors in control panel operator crude unit may have occurred. documented in this encounterProMercy Health Defiance Hospital02-25-2025 NoteImage sent from her left breast wound n 04/26/2024. Reports significant other was changing the dressing, and removing packing when it made another hole. Will touch base with Will plan on continuing current antibiotics.[facility] 04-26-2024 Miscellaneous Notes* Telephone Encounter - Viviane Lopez CMA - 04/26/2024 9:43 AM EST [facility] Called: They said that they received the referral from our office for the patient to have BID wet to dry dressing changes to her breast wound. Unfortunately they do not accept her insurance so they will not be able to provide these services for her. * Telephone Encounter - AMEENA Kennedy - 04/26/2024 9:43 AM EST Will fax referral to [facility]. documented in this encounterVan Wert County Hospital02-25-2025 Telephone encounter Note* Telephone Encounter - Viviane Lopez CMA - 04/26/2024 9:43 AM EST [facility] Called: They said that they received the referral from our office for the patient to have BID wet to dry dressing changes to her breast wound. Unfortunately they do not accept her insurance so they will not be able to provide these services for her. [facility] SystemPel[facility] [id number] Telephone encounter Note* Telephone Encounter - AMEENA Kennedy - 04/26/2024 9:43 AM EST Will fax referral to [facility]. [employer] Work Phone: 1(174) 790-206902-21-2025 Miscellaneous Notes* Telephone Encounter - AMEENA Kennedy - 04/22/2024 12:35 PM EST Spoke with patient oncology team. They are okay with her port being removed and a picc line being placed. They are working on coordinating that surgery. They have already updated the patient's infectious disease physician. - AMEENA Rand 04/22/24 12:36 PM documented in this encounterCincinnati Children's Hospital Medical CenterDigital Folio [facility] [id number] Telephone encounter Note* Telephone Encounter - AMEENA Kennedy - 04/22/2024 12:35 PM EST Spoke with patient oncology team. They are okay with her port being removed and a picc line being placed. They are working on coordinating that surgery. They have already updated the patient's infectious disease physician. - AMEENA Rand 04/22/24 12:36 PM [facility] System[facility] Work Phone: [phone]) 418-407802-20-2025 History of Present illness Narrative* Catie Walker LPN - 04/21/2024 11:30 AM EST Reason for Appointment: Patient [...] 12.5 MG tablet Every 24 hours HYDROcodone-acetaminophen ([place]) 5-325 MG tablet TAKE ONE TABLET BY [...] (40 MEQ) BY MOUTH ONCE DAILY FOR 2DAYS. DO NOT CRUSH, CHEW, OR SPLIT. predniSONE [...] nursing note reviewed. Exam conducted with a cloth boil off machine operator present. Vitals: Estimated body mass index is 27.91 kg/m as calculated from the following: Height as of 01/25/24: 5' 11 . Weight as of 03/10/24: [...] of: Evan Thompson DO documented in this encounterSSM Health Cardinal Glennon Children's [id number] History of Present illness Narrative* AMEENA Kennedy - 04/20/2024 3:30 PM EST [facility] Plastic & Reconstructive Surgery [address] Office Jhon Gross MD, PhD Marisela Cuevas, ROBRE-INÉS Potter, ROBER-ESPERANZA Plastic Surgery Progress Note Reason for visit : post-op History of present illness: Ike Flannery is a 53 y.o. female with a history of a history ofright breast cancer status post bilateral skin sparing mastectomies (He) and tissue putty mixer reconstruction in 10/28/2023. Her postoperative course was complicated by an infected seroma of her leftbreast requiring operative washout and tissue putty mixer removal 11/27/23. Intraoperative cultures demonstrated growth of [...] this heals. I will review with Dr. Gross. I discussed that if she continues to have wounds he may have to provide some soft tissue coverage to the area like with a latissimus dorsi muscle flap. I will also discuss this with him. Will send a referral to home health to assist with b.i.d. wet-to-dry dressing changes. Follow up next week with Dr. Gross as scheduled. - AMEENA Rand 04/20/24 4:02 PM Please note that portions of this note were generated using voice recognition M*Modal dictation software. Although every effort was made to ensure the accuracy of this automated control panel operator crude unit, some errors in control panel operator crude unit may have occurred. 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 Consent signed and reviewed with Avi Tobar [facility], patient and myself. Everyday, Thursday-Thursday for 20 days Radiation therapy. Keytruda starting on Thursday Oopherectomy plannned Update potassium dose On b6 and b12 On anastrozole. 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 Clofazimine JOSÉ MIGUEL remains <= 0.5 Imipenem remains at JOSÉ MIGUEL of 16 No JOSÉ MIGUEL creep noted. There is an additional culture from 03/21/24 that is pending, has been sent to [facility] for further work up. Awaiting those results [...] to tolerate. Will need monitoring labs and java jsf developer H/H if it remains persistently low may [...] as the initial trigger followed by breast putty mixer placement. Source control was achieved with putty mixer removal in October. The skin appears healthy [...] the right breast. ER negative (weakly positive) MD negative HER2 negative. Was previously on chemotherapy [...] sounds; no bruits, o (more content not included)...[facility]02-12-2025 History of Present illness Narrative* Marisela Cuevas, ROBER-APPARATUS ENGINEERING TECHNOLOGIST - 04/13/2024 2:00 PM EST [facility] Plastic & Reconstructive Surgery [address] Office Jhon Gross MD, PhD Marsiela Cuevas, [facility] INÉS King, [facility] Plastic Surgery Progress Note Reason for visit : post-op History of present illness: Ike Flannery is a 53 y.o. female with a history of right breastcancer status post bilateral skin sparing mastectomies (He) and tissue putty mixer reconstruction in 10/28/2023. Her postoperative course was complicated by an infected seroma of her left breast requiring operative washout and tissue putty mixer removal 11/27/23. Intraoperative cultures demonstrated growth of [...] states that on Thursday she had some drainagefrom her left breast incision. She did not [...] patient was seen and evaluated with Dr. Gross. After verbal consent was obtained utilizing sterile [...] to ensure the accuracy of this automated control panel operator crude unit, some errors in control panel operator crude unit may have occurred. AMEENA Kennedy 04/13/24 1459 documented in this encounterVan Wert County Hospital02-12-2025 History of Present illness Narrative* Raymond Sepulveda MD - 04/13/2024 1:00 PM EST Subjective: Ike is a 53 y.o. female here for consultation from for evaluation and management of left-sided pelvic mass. This patient recently underwent a minimally invasive bilateral salpingo-oophorectomy for an ER and MD positive breast cancer, at the time of the operation she was noted to havea left-sided pelvic mass, this was unable to be resected due to its intimate nature with the left ureter. She is here for further evaluation and treatment today. 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 We [...] MIDSECTION- BREAST Left 02/26/2024 Performed by Jhon Gross MD at [facility] EXCISION LYMPH NODE AXILLARY DISSECTION Right 10/28/2023 Performed by Christy He MD at [facility] EXCISION OF REDUNDANT INFECTED LEFT CHEST WALL TISSUE WITH PRIMARY CLOSURE Left 03/21/2024 Performed by Jhon Gross MD at [facility] HYSTERECTOMY 2006 IMMEDIATE BREAST RECONSTRUCTION WITH TISSUE CARD MOUNTER PLACEMENT Bilateral 10/28/2023 Performed by Jhon Gross MD at [facility] INCISION DRAINAGE BREAST Left 11/27/2023 Performed by Jhon Gross MD at [facility] INCISION DRAINAGE BREAST (WASHOUT) Left 02/26/2024 Performed by Jhon Gross MD at [facility] MAGNETIC SEED LOCALIZATION EXCISION/BIOPSY MASS BREAST (MAG SEED LOCALIZED TARGETED DISSECTION FOR RETRIEVAL OF PREVIOUSLY CLIPPED LYMPH NODE) Right 10/28/2023 Performed by Christy He MD at [facility] MASTECTOMY BREAST SIMPLE RISK REDUCING SKIN SPARING Left 10/28/2023 Performed by Christy He MD at [facility] MASTECTOMY BREAST SIMPLE SKIN SPARING Right 10/28/2023 Performed by Christy He MD at [facility] MENISCECTOMY Bilateral 2022 PORTACATH PLACEMENT Left left chest REMOVAL CARD MOUNTER TISSUE BREAST Left 11/27/2023 Performed by Jhon Gross MD at [facility] RIGHT AXILLARY PROPHYLACTIC BYPASS LYMPHOVENOUS Right 10/28/2023 Performed by Jhon Gross MD at [facility] TONSILLECTOMY AND ADENOIDECTOMY Age 3 TUMOR REMOVAL [...] JVD, supple, symmetrical, trachea midline and thyroid notenlarged, symmetric, no tenderness/mass/nodules Lungs: clear to auscultation [...] right breast of female, estrogen receptor positive ([facility]) S/P breast reconstruction, bilateral Cellulitis of left breast MIRNA (acute kidney injury) ([facility]) Infection of deep incisional surgical site after [...] pneumonia, myocardial infarction, stroke and even . Thepatient understands the risks and elects to proceed. 4. Total time spent was 62 minutes: Preparing to see the patient (e.g., review of tests) Obtaining and/or reviewing separately obtained history Performing a medically appropriate examination and/or evaluation Counseling and educating the patient/family/caregiver Ordering medications, tests, or procedures Referring and communicating with other health senior care provider (not separately reported) Documenting clinical information in the electronic or other health record Raymond Sepulveda MD documented in this encounterCincinnati Children's Hospital Medical CenterDigital Folio [facility] [id number] History of Present illness Narrative* Nasreen Li, CCC-A - 04/13/2024 8:45 AM EST History: Pt was referred to Audiology because of hearing loss. Pt needs baseline audio before she starts a potentially ototoxic antibiotic. Pt does not notice hearing loss. She denies tinnitus. 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 Office Jhon Gross MD, PhD AMEENA Kennedy PA-C Gretchen Kuhlman, APRN-CNP Plastic Surgery Progress Note Reason for visit : post-op History of present illness: Ike Flannery is a 53 y.o. female with a past medical history right breast cancer status post bilateral skin sparing mastectomies (He) and tissue putty mixer reconstruction in 10/28/2023. Her postoperative course was complicated by an infected seroma of her left breast requiring operative washout and tissue putty mixer removal 11/27/23. 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 She then developed a wound of her left breast requiring I&D of her left breast 02/26/24. Intraoperative tissue cultures were sent and again positive for mycobacterium. She again dev eloped a left breast wound requiring I&D on 03/21/24 with positive cultures for mycobacterium. She continues with IV antibiotics per ID. She presents to our office today for wound evaluation and possible drain removal. She states she isdoing well. She is having minimal postoperative pain. Her drain outputs have been less than 10 mL aday for 10 days. The patient denies fever, [...] fluid collections palpated. Nipple-areolar complexes surgically absent. ATREMIO drain in place, draining serosanguineous fluid. ARTEMIO [...] pushing or pulling. Discussed that she can showerand sleep how she feels comfortable at this [...] to ensure the accuracy of this automated control panel operator crude unit, some errors in control panel operator crude unit may have occurred. AMEENA Kennedy 03/30/24 1629 documented in this encounterCincinnati Children's Hospital Medical CenterDigital Folio [facility] [id number] Instructions* Pre- Procedure Instructions - Lenore Grover RN - 03/18/2024 1:45 PM EST Your surgery/procedure is scheduled at [facility] on 03/21/24 at 3;30 pm Arrival Time 12;30 pm [facility] Address: [address] [place] [address], [facility], [facility] Park in the Emergency Center Parking lot. Report to the front end loader operator in the Emergency/Surgery Registration lobby of the hospital. Notify your SURGEON if you develop any illness such as a cold, cough, fever, sore throat, vomiting or are hospitalized between now and your surgery. Please call Pre-Admission Clinic at [phone] if you have any questions prior to surgery. For questions the morning of surgery, call the Pre-op Department at [phone]. Medication Instructions (Do not stop your medications [...] would like to schedule therapy at a [facility] facility, please call [phone] ([phone]). Do not use lotions, creams, powders, perfume, make up, cologne or after-shaves day of surgery. Remove ALL jewelry including wedding rings, body piercings, hair extensions that contain metal, nail malagasy, make-up, and contact lens. You may brush your teeth the morning of surgery, but do not swallow the water. Wear your dentures and partial plates to the hospital (no adhesive). Shower the night the before. If applicable, use the CHG (chlorhexidine gluconate) soap or wipes. Please be advised, [facility] has transitioned to a cashless payment [...] RIGHTS AND RESPONSIBILITIES As a patient at [facility], you have the right to: Receive medical care and be informed of who is taking care of you Be treated with dignity and respect Have a family member/registration representative of choice and your physician notified of your admission Receive information and actively participate in decisions about your care and treatment Refuse care, treatment and services Decide who may provide your support and speak for you Access orthodoxy and spiritual services Participate in ethical issues [...] of hospital charges and payment methods Patient/patient registration representative responsibilities are to: Provide information about health status to facilitate care, treatment and services Follow the treatment, plan, keep appointments and speak up when you do not understand the plan Respect the rights of other patients and healthcare personnel Follow organizational rules and regulations that support quality care and a safe environment Fulfill financial obligations as promptly as possible [facility]01-17-2025 Miscellaneous Notes* Pre-Procedure Instructions - Lenore Grover RN - 03/18/2024 1:45 PM EST Your surgery/procedure is scheduled at [facility] on 03/21/24 at 3;30 pm Arrival Time 12;30 pm [facility] Address: [address] [place] [address], [address] [place] [address] in the Emergency Center Parking lot. Report to the front end loader operator in the Emergency/Surgery Registration lobby of the hospital. Notify your SURGEON if you develop any illness such as a cold, cough, fever, sore throat, vomiting or are hospitalized between now and your surgery. Please call Pre-Admission Clinic at [phone] if you have any questions prior to surgery. For questions the morning of surgery, call the Pre-op Department at [phone]. Medication Instructions (Do not stop your medications [...] would like to schedule therapy at a [facility] facility, please call [phone] ([phone]). Do not use lotions, creams, powders, perfume, make up, cologne or after-shaves day of surgery. Remove ALL jewelry including wedding rings, body piercings, hair extensions that contain metal, nail malagasy, make-up, and contact lens. You may brush your teeth the morning of surgery, but do not swallow the water. Wear your dentures and partial plates to the hospital (no adhesive). Shower the night the before. If applicable, use the CHG (chlorhexidine gluconate) soap or wipes. Please be advised, [facility] has transitioned to a cashless payment [...] RIGHTS AND RESPONSIBILITIES As a patient at [facility], you have the right to: Receive medical care and be informed of who is taking care of you Be treated with dignity and respect Have a family member/registration representative of choice and your physician notified of your admission Receive information and actively participate in decisions about your care and treatment Refuse care, treatment and services Decide who may provide your support and speak for you Access orthodoxy and spiritual services Participate in ethical issues [...] of hospital charges and payment methods Patient/patient registration representative responsibilities are to: Provide information about health status to facilitate care, treatment and services Follow the treatment, plan, keep appointments and speak up when you do not understand the plan Respect the rights of other patients and healthcare personnel Follow organizational rules and regulations that support quality care and a safe environment Fulfill financial obligations as promptly as possible documented in this encounterVan Wert County Hospital01-15-2025 NotePatient seen in clinic today for cross - coverage with Dr. [...] and the other 2 are in the director multimedia section from today's date -she has a [...] insurance company for a referral to an director of medical review, need to start chemotherapy within the next [...] Lui will consult with mycobacterial experts at [facility] regarding the risk of worsening or inability control the current mycobacterial infection with the planned chemotherapeutic agents and then he will rincon back with oncology as well -if there [...] follow-up testing 5) I will call Dr. Gross -agree with additional debridement if he can do this just to try to decrease the bioburden especially as he was concerned about tunneling and a second look would be warranted in this case The patient is going to need to communicate to us through [employer] and she has an appointment scheduled for [...] April if possible Addendum: spoke with Dr. Gross ([phone]) and his staff will call her to get her on the surgery schedule. Spoke with Dr. Hope ([phone]) and he will try to start chemo [facility] late [facility] Miscellaneous Notes* Telephone Encounter - Alton Greco - 03/15/2024 4:49 PM EST [facility] (Radiology) Requested Most Recent Office Note Faxed at 4:45pm 03/15/24 documented in this encounterCincinnati Children's Hospital Medical CenterDigital Folio [facility] [id number] Telephone encounter Note* Telephone Encounter - Alton Greco - 03/15/2024 4:49 PM EST [facility] (Radiology) Requested Most Recent Office Note Faxed at 4:45pm 03/15/24 [facility] HospitalChannelsoft ([place]) [facility] [id number] Evaluation note* Diagnosis Onset Date Resolution Status Admit Date Breast cancer, right acute Garfield randolph 2024 2:42pm Breast cancer, right acute Febr uary 2024 2:57pm [facility] Work Phone: 1(832) 659-944301-09-2025 History of Present illness Narrative* Megan Nuñez - 03/10/2024 11:00 AM EST Reason for Appointment: Patient ID: Ike Eason Widman is a 53 y.o. female who presents for No chief complaint on file. Patient presents today for Pre Op appointment. Patient is scheduled to undergo Da Jason assisted Diagnostic Laparoscopy with Bilateral Salpingo-Oophorectomy, possible BEATA, possible FOE on 04/07/[address] Thompson at [facility]. MEDICATIONS Current Outpatient Medications Medication Instructions [...] 12.5 MG tablet Every 24 hours HYDROcodone-acetaminophen ([place]) 5-325 MG tablet TAKE ONE TABLET BY [...] (40 MEQ) BY MOUTH ONCE DAILY FOR 2DAYS. DO NOT CRUSH, CHEW, OR SPLIT. predniSONE [...] nursing note reviewed. Exam conducted with a cloth boil off machine operator present. Vitals: Estimated body mass [...] reviewed, and patient is to proceed to [facility]. Follow Up: Patient is to follow up between 1-2 weeks post operative to assess proper healing and recovery fromprocedure. Documented by Catie Walker LPN on behalf of: Evan Thompson DO documented in this encounterSSM Health Cardinal Glennon Children's [id number] History of Present illness Narrative* Jhon Gross MD - 03/10/2024 8:15 AM EST [facility] Plastic & Reconstructive Surgery [address] Office Jhon Gross MD, PhD Marisela Cuevas, PLANNING LEAD-APPARATUS ENGINEERING TECHNOLOGIST INÉS King, PLANNING LEAD-APPARATUS ENGINEERING TECHNOLOGIST Plastic Surgery Progress Note Reason for visit : post-op follow up History of present illness: Ike Flannery 53 y.o. is here today for a follow up after repeatdebridement of her left breast wound on 02/26/24. 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 She has a history of right breast cancer status post bilateral skin sparing mastectomies and tissueexpander reconstruction in October 2023. Her postoperative course was complicated by an infected seroma of her left breast requiring operative washout and tissue putty mixer removal in November 2023. Intraoperative cultures demonstrated [...] active infection, no palpable fluid collections Female cloth boil off machine operator present - yes Impression: 1. Postoperative visit 2. Mycobacterium abscessus infection 3. S/P breast reconstruction, bilateral 4. Malignant neoplasm of lower-inner quadrant of right breast of female, estrogen receptor positive([facility]) Recommendations: 1mnth f/u everette gross sutures were pulled f/u with Briana moody 03/16 Dr. Gross will reach out to July to discuss [...] to ensure the accuracy of this automated control panel operator crude unit, some errors in control panel operator crude unit may have occurred. I, JHON GROSS MD, PHD personally performed the face to [...] as follows: Plan as stated above. Jhon Gross MD, PhD [facility] Plastic & Reconstructive Surgery Total time spent was 25 minutes: Preparing to see the patient (e.g., review of tests) Obtaining and/or reviewing separately obtained history Performing a medically appropriate examination and/or evaluation Counseling and educating the patient/family/caregiver Ordering medications, tests, or procedures Referring and communicating with other health senior care provider (not separately reported) Documenting clinical information in the electronic or other health record Independently interpreting results (not separately reported) and communicating results to the patient/family/caregiver Care coordination (not separately reported) documented in this encounterVan Wert County Hospital01-02-2025 History of Present illness Narrative* Jhon Gross MD - 03/03/2024 12:30 PM EST [facility] [address] Office Jhon Gross MD, PhD Marisela Cuevas, PLANNING LEAD-APPARATUS ENGINEERING TECHNOLOGIST INÉS King, PLANNING LEAD-APPARATUS ENGINEERING TECHNOLOGIST Plastic Surgery Progress Note Reason for visit : post operative visit. History of present illness: Ike Abraham Widman 53 y.o. is here today for a follow up after repeatdebridement of her left breast wound on 02/26/24. 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 She has a history of right breast cancer status post bilateral skin sparing mastectomies and tissueexpander reconstruction in October 2023. Her postoperative course was complicated by an infected seroma of her left breast requiring operative washout and tissue putty mixer removal in November 2023. Intraoperative cultures demonstrated [...] of right breast of female, estrogen receptor positive([facility]) Recommendations: Will discuss with ID-Dr Lui whether it would be beneficial to remove more tissue in efforts to assist with clearing her infection. We discussed that we can always make a breast withtissue from elsewhere in the future. There are plenty of ways to obtain skin and tissue as we have not ,yet had to explore or consider any of these options. We would like for her to follow up next week at which time we will likely remove her sutures. In the interim, we will reach out to Dr. Lui. SHEREEN SMALLWOOD PA-C I, JHON GROSS MD, PHD personally performed the face to face evaluation on this patient on March 03, 2024. The patient was seen with Shereen Smallwood PA-C. I discussed with the patient and confirmed the accuracy and completeness of the aforementioned history, and I personally performed theclinical examination of the patient. I have established and discussed the course of treatment with the patient. My medical decision making and treatment plan are as follows: Plan as stated above. Jhon Gross MD, PhD [facility] Plastic & Reconstructive Surgery Total time spent was 20 minutes: Preparing to see the patient (e.g., review of tests) Obtaining and/or reviewing separately obtained history Performing a medically appropriate examination and/or evaluation Counseling and educating the patient/family/caregiver Ordering medications, tests, or procedures Referring and communicating with other health senior care provider (not separately reported) Documenting clinical information in the electronic or other health record Independently interpreting results (not separately reported) and communicating results to the patient/family/caregiver Care coordination (not separately reported) Please note that portions of this note were generated using voice recognition [employer] dictation software. Although every effort was made to ensure the accuracy of this automated control panel operator crude unit, some errors in control panel operator crude unit may have occurred. documented in this encounterVan Wert County Hospital01-01-2025 Miscellaneous Notes* Telephone Encounter - Arlet Selby - 03/02/2024 2:27 AM EST Contract: Marisel Zaragoza @[facility] Microbiology Lab called with a critical result * Telephone Encounter - Maria Del Carmen Knight - 03/02/2024 2:[address] Gross cell and left message to call [facility]. * Telephone Encounter - Maria Del Carmen Knight - 03/02/2024 2:[address] Gross cell and left message to call [facility]. * Telephone Encounter - Maria Del Carmen Szymanskifford - 03/02/2024 2:[address] Gross cell and left message to call [facility]. * Telephone Encounter - Maria Del Carmenpati Knight - 03/02/2024 2:[address] Gross cell and left message to call [facility]. * Telephone Encounter - Maria Del Carmenpati Knight - 03/02/2024 2:[address] Gross cell and left message to call [facility] * Telephone Encounter - Maria Del Carmen Antonia - 03/02/2024 2:[address] Gross cell and left message to call [facility]. * Telephone Encounter - Maria Del Carmen Antonia - 03/02/2024 2:[address] Gross called and connected with lab. documented in this encounterVan Wert County Hospital01-01-2025 Telephone encounter Note* Telephone Encounter - Arlet Selby - 03/02/2024 2:27 AM EST Contract: [id number] Mila @[facility] Microbiology Lab called with a critical result [facility]01-01-2025 Telephone encounter Note* Telephone Encounter - Maria Del Carmenpati Knight - 03/02/2024 2:[address] Gross cell and left message to call [facility]. [facility]01-01-2025 Telephone encounter Note* Telephone Encounter - Maria Del Carmen Szymanskifford - 03/02/2024 2:[address] Gross cell and left message to call [facility]. [facility]01-01-2025 Telephone encounter Note* Telephone Encounter - Maria Del Carmen Szymanskifford - 03/02/2024 2:[address] Gross cell and left message to call [facility]. [facility]01-01-2025 Telephone encounter Note* Telephone Encounter - Maria Del Carmen Szymanskifford - 03/02/2024 2:[address] Gross cell and left message to call [facility]. [facility]01-01-2025 Telephone encounter Note* Telephone Encounter - Maria Del Carmen Knight - 03/02/2024 2:[address] Gross cell and left message to call [facility]01-01-2025 Telephone encounter Note* Telephone Encounter - Maria Del Carmen Knight - 03/02/2024 2:[address] Gross cell and left message to call [facility]. [facility]01-01-2025 Telephone encounter Note* Telephone Encounter - Maria Del Carmenpati Knight - 03/02/2024 2:[address] Gross called and connected with lab. [facility]12-30-2024 Miscellaneous Notes* Telephone Encounter - Joya Gray CMA - 02/29/2024 8:20 AM EST Attempted to call patient to reschedule her /[address] Gross If patient calls back please place her on 03/[address] Gross documented in this encounterVan Wert County Hospital12-30-2024 Telephone encounter Note* Telephone Encounter - Joya Gray CMA - 02/29/2024 8:20 AM EST Attempted to call patient to reschedule her [address] Gross If patient calls back please place her on 03/[address] Gross [facility]12-24-2024 Miscellaneous Notes* Telephone Encounter - Jhon Gross MD - 02/23/2024 11:59 PM EST The patient contacted the after hours clinic this evening reporting a new open wound on her left breast that developed earlier today. The wound is located along the vertical component of her previousWise pattern incision. I spoke to the patient [...] has now worked its way through her previousincision. I recommended that she apply dry gauze to the open wound and change it as needed as well as remain in gentle compression. I will make an appointment for her to be evaluated in clinic this upcoming . Discussed warning signs, and if present, the patient was instructed to either callback or go to the nearest emergency department for further evaluation. She was agreeable with this plan. documented in this encounterVan Wert County Hospital12-24-2024 Telephone encounter Note* Telephone Encounter - Jhon Gross MD - 02/23/2024 11:59 PM EST The patient contacted the after hours clinic this evening reporting a new open wound on her left breast that developed earlier today. The wound is located along the vertical component of her previousWise pattern incision. I spoke to the patient [...] has now worked its way through her previousincision. I recommended that she apply dry gauze to the open wound and change it as needed as well as remain in gentle compression. I will make an appointment for her to be evaluated in clinic this upcoming . Discussed warning signs, and if present, the patient was instructed to either callback or go to the nearest emergency department for further evaluation. She was agreeable with this plan. [facility]12-24-2024 Miscellaneous Notes* Telephone Encounter - Graciela Borges CMA - 02/23/2024 7:54 PM EST Contract: [id number] Pt called said she has a a dehiscence wound from breast surgery that is leaking. * Telephone Encounter - Graciela Borges CMA - 02/23/2024 7:[address] Gross called back, connected to pt. documented in this encounterVan Wert County Hospital12-24-2024 Telephone encounter Note* Telephone Encounter - Graciela Borges CMA - 02/23/2024 7:54 PM EST Contract: [id number] Pt called said she has a a dehiscence wound from breast surgery that is leaking. [employer]12-24-2024 Telephone encounter Note* Telephone Encounter - Graciela Borges CMA - 02/23/2024 7:[address] Gross called back, connected to pt. 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 Consent signed and reviewed with Avi Tobar [facility], patient and myself. Everyday, Thursday-Thursday for 20 days Radiation therapy. Keytruda starting on Thursday Oopherectomy plannned Update potassium dose On b6 and b12 On anastrozole. Clofazimine started on 02/14March 18 EKG Mar 24- trip to [place], advised wearing a mask while in crowded places, would avoid public pools, showers, water méndez Recommendations: Continue on PO Tedizolid 200mg once daily Continue clofazamine 100mg once daily, started on 02/14 Imipenem has been extended an additional 4 weeks Will meet with allergy and immunology to discuss tetracycline allergy and possible desensitization Discussed with semiconductor wafers tester. PA appeal pending. Will need monitoring labs and java jsf developer H/H if it remains persistently low may [...] as the initial trigger followed by breast putty mixer placement. Source control was achieved with putty mixer removal in October. The skin appears healthy [...] the right breast. ER negative (weakly positive) MD negative HER2 negative. Was previously on chemotherapy [...] (Flexeril) 10 mg tab (more content not included)...[facility]12-16-2024 NoteWill have additional follow up on 04/18 where we will discuss continued antibiotic therapy. In process of completing PA for omadacycline Continue on Tidelzolid Would extend imipenem for 4 additional weeks. Can be discontinue early if we are able to obtain omadacycline and de-sensitize her appropriately.[facility]12-16-2024 History of Present illness Narrative* Catie Walker LPN - 02/15/2024 3:30 PM EST Reason for Appointment: Patient ID: Ike [...] 12.5 MG tablet Every 24 hours HYDROcodone-acetaminophen ([place]) 5-325 MG tablet TAKE ONE TABLET BY [...] (40 MEQ) BY MOUTH ONCE DAILY FOR 2DAYS. DO NOT CRUSH, CHEW, OR SPLIT. predniSONE [...] nursing note reviewed. Exam conducted with a cloth boil off machine operator present. Vitals: Estimated body mass [...] will need to have urinary stents placed. Solid Waste Collection Worker will reach out to patient once surgery is setup. Patient to return to clinic for pre-op appointment. Documented by Catie Walker LPN on behalf of: Evan Thompson DO documented in this encounterSSM Health Cardinal Glennon Children's [id number] Evaluation note* Diagnosis Onset Date Resolution Status Admit Date Mycobacterium abscessus infection acute February 10, 2 024 2:21pm Breast cancer, right acute Garfield randolph 2024 2:42pm [facility] Work Phone: 1(384) 301-989612-12-2024 Evaluation note* Diagnosis Onset Date Resolution Status Admit Date Mycobacterium abscessus infection acute February 10, 2 024 2:21pm Breast cancer, right acute Garfield randolph2024 2:42pm Breast cancer, right acute Febr ua2024 2:57pm [facility] Work Phone: 1(200) 533-561212-12-2024 NoteClinical Reasoning Patient has a history of [...] wound in relation to where a breast putty mixer was placed. She has macrolide resistant Mycobacterium [...] the patient Her resistance as tested at [facility] is below: Sources: Cuauhtemoc Au, Clement Curry, Nicci Lacey, Michael Heard, Emily Hamilton, Kayleigh Gutierrez, Michael Michelle, Aye Hopson, Marianna Draper, Efficacies of three drug regimens containing omadacycline to treat Mycobacteroides abscessus disease, Tuberculosis, Volume 146, 2023, 837330, ISSN 4409-7805, https://doi.org/10.1016/j.tube.2023.234423. Omadacycline as a promising new agent for the treatment of infections with Mycobacterium abscessus J Antimicrob Chemother 2019; 74: 5292-5369 doi:10.1093/peyman/myn380 Advance Access publication 23 August 2018 Jaen SHORT, Kyree LORENZANA, Jr. 2020. In vitro susceptibility testing of omadacycline against nontuberculous mycobacteria. Antimicrob Agents Chemother 65:b49019-77. https://doi.org/10.1128/AAC.87370-64. León Berry, Kalpana D, Camilo Valdez, Ermelinda Valdez. 2019. In vitro activities of omadacycline against rapidly growing mycobacteria. Antimicrob Agents Chemother 63:q89789-54. https://doi.org/10.1128/AAC .93072-79. Omadacycline for treatment of Mycobacterium chelonae skin infection Iliana Sin MSa , Corrina Marcelo MDb, and Monique Delacruz PROC ([facility]) 2020;33(4):610-611 Copyright # 2020 [facility] https://doi.org/[email or web address] Herman Lui DO [facility] Telephone encounter Note* Telephone Encounter - Yves Coffey MD - 02/10/2024 4:58 PM EST I suggested she speak with her infectious disease physician about either selecting a different agent or writing a letter for the insurance company to get the procedure covered. [facility] [phone] Miscellaneous Notes* Telephone Encounter - Yves Coffey MD - 02/10/2024 4:58 PM EST I suggested she speak with her infectious disease physician about either selecting a different agent or writing a letter for the insurance company to get the procedure covered. documented in this [facility]11-26-2024 History of Present illness Narrative* Yves Coffey [...] of call 8 minutes. documented in this [facility]11-25-2024 History of Present illness Narrative* Yves Coffey MD - 01/25/2024 10:00 AM EST Ike Eason Widman is a very pleasant 53 y.o. year [...] as an inpatient in the ICU at [facility]. I will call the hospitalist at [facility] tomorrow about direct admission to the ICU for this procedure in the next several days. I explained to the patient the need to stop her toprol 36 hours before her procedure. She is on this for Trigeminy and HTN. I asked her to communicate withher rigger up whether she can stop this medication briefly for 36 hours prior to her procedure. Time of Visit 70 minutes including review of prior records and communicating with her referring infectious disease physician on the phone and contact the patient after hours to discuss the final plan. 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 Consent signed and reviewed with Avi Tobar [facility], patient and myself. Everyday, Thursday-Thursday [...] as the initial trigger followed by breast putty mixer placement. Source control was achieved with putty mixer removal in October. The skin appears healthy [...] the right breast. ER negative (weakly positive) MD negative HER2 negative. Was previously on chemotherapy [...] Disp: , Rfl: T (more content not included)...[facility]10-30-[facility] History of Present illness Narrative* Georgiana Justice [...] Refer to Evon MASON. documented in this encounterSSM Health Cardinal Glennon Children's [id number] Note Attestation signed by Herman Lui DO [...] breast malignancy s/p bilateral mastectomy with tissue putty mixer placed in 10/28/2023. [place] water exposure was approximately a month prior making the port on the left side the possible portal of entry. Tissue putty mixer has been taken out, the left chest [...] well as her oncologist. Have sent e-consult [facility]. Started IRB process for Clofazimine approval [...] the right breast. ER negative (weakly positive) MD negative HER2 negative. She received neoadjuvant chemotherapy with carboplatin and paclitaxel and Keytruda on September 28. Of note, she went to the ocean shortly after September 28 and believes that she might have gotten water splashed from the ocean on her port. She underwent double mastectomy in October 2023 at which point the spacer was placed. She had a tissue putty mixer on her left breast that was removed in October because of the mycobacterial infection. At the time, the breast became erythematous with the putty mixer in place. Culture grew Mycobacterium abscessum. The putty mixer was removed November 25 and it was [...] intended. She is going to Radiology at [facility] in [place]. She is currently on oral clarithromycin 500 [...] in the morning. c (more content not included)...[facility]10-29-[facility]24 Evaluation note* Diagnosis Onset Date Resolution Status Admit Date Breast cancer, right acute Octo markel 2023 10:50am Mycobacterium abscessus infection acute February 10, 024 2:21pm Breast cancer, right acute Garfield randolph 2024 2:42pm [facility] Work Phone: [phone] History of Present illness Narrative* Shereen Smallwood PA-C - 12/29/2023 8:30 AM EDT [facility] Plastic & Reconstructive Surgery [address] Office Jhon Gross MD, PhD Marisela Cuevas, PLANNING LEAD-APPARATUS ENGINEERING TECHNOLOGIST INÉS King, ROBER-ESPERANZA Plastic Surgery Progress Note Reason for visit [...] developed an infection of her left tissue putty mixer and went underwent I&D of left breast was removal of tissue putty mixer 11/27/2023. She presents tothe office today for tissue putty mixer filled. She reports that she meets with radiation oncology next week for possible simulation. She is doing well however she does wish to be proximally a D cup and feels that she is a high see at present. Her breast is tight and she is uncertain whether she can accommodate more volume. Procedure note : Tissue putty mixer fill port, was identified using magnet. This area was cleansed with alcohol, and Betadine. Then using a 25 gauge needle, approximately 75ml normal saline was injectedinto right tissue putty mixer(s). Patient tolerated well. Adequate hemostasis was achieved, [...] of right breast of female, estrogen receptor positive([facility]) Recommendations: Patient tolerated the MAGO fill. We [...] this note were generated using voice recognition TastyKhana dictation software. Although every effort was made to ensure the accuracy of this automated control panel operator crude unit, some errors in control panel operator crude unit may have occurred. Shereen Smallwood PA-C 12/29/23 1349 documented in this encounterVan [facility]ert [facility]10-28-[facility] Hospital Discharge instructions Patient Education 12/28/2023 [...] in conditions and diseases of the eye (industrial sales manager). The exam may include: ?Putting eye drops [...] provider. Document Revised: 09/04/2021 Document Reviewed: 09/04/2021 Mumum[employer] Patient Education 2023 BESOS. Follow Up Care 12/28/2023 20:24:16 With:Georgiana Justice Address: [place] [address] [address] Business (1) When:12/29/2023 21:28:05 Comments:Please call first in the morning for same-day appointment With:RANDY CALLE Address: [facility] [place] [address] Business (1) When:Within 3 Day(s) [facility] 10-28-2024 NoteED Patient Education Note Ophthalmology Vitreous [...] in conditions and diseases of the eye (industrial sales manager). The exam may include: ? Putting eye [...] provider. Document Revised: 09/04/2021 Document Reviewed: 09/04/2021 Mumumío Patient Education ? 2023 BESOS.[facility] 12-28-2023 Evaluation + Plan noteExtracted from: Title:ED Note Author:Rusty Horton DO. 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 Office Jhon Gross MD, PhD Marisela Cuevas, PLANNING LEAD-APPARATUS ENGINEERING TECHNOLOGIST Shereen Smallwood PA-C Plastic Surgery Progress Note [...] developed an infection of her left tissue putty mixer and went underwent I&D of left breast was removal of tissue putty mixer 11/27/2023. Shepresents to the office today for tissue putty mixer filled. She reports that she meets with [...] Recommendations: Patient is doing well postoperatively. Tissue putty mixer filled performed in office today. Discussed with patient she can use awbd-bgu-klofnda acetaminophen or ibuprofen for Any discomfort after tissue putty mixer filled. Continue with supportive bra. Okay to [...] this note were generated using voice recognition [employer] dictation software. Although every effort was made to ensure the accuracy of this automated control panel operator crude unit, some errors in control panel operator crude unit may have occurred. AMEENA Kennedy 12/21/23 1500 documented in this [facility]10-16-2024 Miscellaneous Notes* Telephone Encounter - Deborah Wills CMA - 12/16/2023 11:25 AM EDT Patient will call us back to schedule a hospital follow up documented in this [facility]10-16-2024 Telephone encounter Note* Telephone Encounter - Deborah Wills CMA - 12/16/2023 11:25 AM EDT Patient will call us back to schedule a hospital follow up [facility]10-14-20[facility] History of Present illness Narrative* AMEENA Kennedy - 12/14/2023 3:30 PM EDT [facility] Plastic & Reconstructive Surgery [address] Office Jhon Gross MD, PhD AMEENA Kennedy PA-C Plastic Surgery [...] developed an infection of her left tissue putty mixer and went underwent I&D of left breast was removal of tissue putty mixer 11/27/2023. Patient did have positive cultures. She continues to follow with Infectious Disease. She presents to office today for right breast tissue putty mixer filled. She states overall she is doing [...] complexes are surgically absent. Right breast tissue putty mixer in place. Procedure note : Tissue putty mixer fill port, was identified using magnet. This area was cleansed with alcohol, and Betadine. Then using a 25 gauge needle, approximately 200ml normal saline was injected into right tissue putty mixer(s). Patient tolerated well. Adequate hemostasis was achieved, [...] continue to expand her right breast tissue putty mixer until she is at a size she is happy with. We would like this to be completed prior to starting radiation therapy. She does have an appointment scheduled to meet with Radiation Oncology at the end of the month. Continue with IV antibiotics per Infectious disease's recommendations. Continue to refrain from any heavy lifting, pushing or pulling. Follow up next week for tissue putty mixer filled. She was advised to call the office any questions orconcerns in the interim. - MAEENA Rand 12/14/23 3:57 PM Please note that portions of this note were generated using voice recognition M*Modal dictation software. Although every effort was made to ensure the accuracy of this automated control panel operator crude unit, some errors in control panel operator crude unit may have occurred. AMEENA Kennedy 12/14/23 1557 documented in this encounterNorthwestern Medical CenterGROU.PS10-14-2024 History of Present illness Narrative* TATI Gordon - 12/14/2023 2:00 PM EDT POSTOPERATIVE VISIT DIAGNOSIS: Right IDC grade 3, ER 75, MD-, Nfs-6-ywvsypuu (IHC score 1+), 1.8 cm, 6/12 nodes+ STAGE: ypT1c N2a DATE OF DIAGNOSIS: 04/10/2023 OPERATION PERFORMED: Right skin sparing mastectomy, right axillary lymph node dissection, left risk-reducing skin sparing mastectomy, right lymphovenous bypass and bilateral tissue expanders (10/29/2023); s/p I&D left breast w removal of tissue putty mixer d/t infection (11/27/2023). GENETIC TESTING: No mutations MED ONC: Dr. Luis Hope RAD ONC: Referred PLASTICS: Dr. Jhon Gross PATHOLOGY: The following pathology was reviewed and discussed with the patient. [employer] [facility] [address] [place] [address] Surgical Pathology Consultation Patient Name:IKE FLANNERY:1970 (Age: 53)Gender:FTaken:4Reported:4Physician(s):Christy He MD ([phone])Copy To:Jhon Gross, [facility] Clinicession #:[id number]. Rec. #:[id number]: #[id number] Final Pathologic Diagnosis 1. Left breast, mastectomy: [...] IMPRESSION: -Right IDC grade 3, ER 75, MD-, Nji-4-exwqjnaq (IHC score 1+); s/p right skin sparing mastectomy, right axillary lymph node dissection, left risk-reducing skin sparing mastectomy, right lymphovenous bypass and bilateral tissue expanders (10/29/2023); 1.8 cm, 6/12 nodes+; s/p I&D left breast w removal of tissue putty mixer d/t infection (11/27/2023 PLAN: Discussed pathology report [...] to her next visit. Francisca Mason PA-C [facility] Breast Surgery [phone] (phone) TATI Gordon 12/16/23 0135 documented in this encounterVan Wert County Hospital10-11-2024 NoteSubjective Patient ID: Tia Flannery is a 53 y.o. female. 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 The tissue putty mixer was removed on 26 November. A specific question would be when is she able to receive radiation therapy as part of her breast cancer treatment. 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 ER negative (weakly positive) MD negative HER2 negative. She received neoadjuvant chemotherapy with carboplatin and paclitaxel and Keytruda. She underwent double mastectomy in October 2023. Had a follow-up visit on 24 November, she had fluid aspiration from her left breast. This was smear positive for acid-fast bacilli; subsequent cultures grew Mycobacterium abscessus. The tissue putty mixer was removed on 26 November. She appears [...] home antibiotic therapy. She was referred to [facility] infectious disease with a planned visit in mid December; we accommodated an earlier visit. She says that she takes trazodone intermittently for sleep. She does not take it regularly. She last took it last night. 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 Review of [...] Exam Vitals reviewed. Exam conducted with a cloth boil off machine operator present. Constitutional: Appearance: Normal appearance. HENT: Head: [...] calor, no dolor, no tumor, no drainage. Archery Equipment Hay Sorter present No nipples Abdominal: General: Abdomen is [...] left breast aspirate- M. Abscessus; sent to [facility] on 04 Dec 2023 for susceptiblity. [...] Mycobacterium abscessus infection related to breast tissue putty mixer which has been removed. Cultures were positive from 24 November. Breast putty mixer was removed on 26 November. She appears to have been started on agents active against Mycobacterium abscessus on 04 December. She has specimens that have been sent to [facility] on the first week of November susceptibilities are pending. She has no signs or symptoms of systemic infection and her chest demonstrates no drainage or fluctuance. Assessment/Plan 53 y.o. female We will continue (more content not included)...[facility]10-11-2024 Miscellaneous Notes* Telephone Encounter - Ana [...] AM EDT Mailbox full documented in this encounterVan [facility]10-11-2024 Telephone encounter Note* Telephone Encounter - Ana Ibrahim - 12/11/2023 10:24 AM EDT Needs TCM before 12/21 [facility]10-11-2024 Telephone encounter Note* Telephone Encounter - Anaalfredo Ibrahim - 12/11/2023 10:24 AM EDT Mailbox full [facility]10-11-2024 Telephone encounter Note* Telephone Encounter - Ana Ibrahim - 12/11/2023 10:24 AM EDT he has upcoming appts with at least 3 specialties that is a lot with what she is going through. If she needs anything from me let me know- she could do telehealth too. - richie [facility]10-11-2024 Telephone encounter Note* Telephone Encounter - Anaalfredo Ibrahim - 12/11/2023 10:24 AM EDT Mailbox full [facility]10-11-2024 Miscellaneous Notes* Telephone Encounter - Mela Berrios RN - 12/11/2023 9:15 AM EDT Transition of Care (*required) *Additional Questions/Concerns Requiring PCP Follow-Up: For TCM, patient would need appt on/before 12/22/23 This documentation is being used for Transition of Care purposes: Yes Goal: Patient will demonstrate a safe transition from hospital to home Diagnosis on Discharge: Postop infection of left breast tissue putty mixer-culture with mycobacterium abscessus New rash Acute kidney injury History of breast cancer S/p bilateral mastectomies S/p bilateral breast reconstruction October 28, 2023 Discharge Specialty: Hem/Onc, Infectious Disease, and Nephrology *Name of Discharging Facility: [facility] Date of Facility Discharge: Admitted; 12/02/23 Discharged: 12/09/23 Date of Interactive Contact and Name of Requirements Manager: 12/11/23 Patient: Ike Widman *Medication Review Completed: Yes START taking: ciprofloxacin [...] with Providers: Primary: AMEENA GARCIA Specialty: ID ([facility]): 12/11/23 Specialty: Surgical Oncology (TATI Mason): 12/14/23 [...] [employer] infusion services * Telephone Encounter - Aan Ibrahim - 12/11/2023 9:15 AM EDT Called patient mailbox full documented in this encounterVan Wert [facility] Hospital10-11-2024 Telephone encounter Note* Telephone Encounter - Mela Berrios RN - 12/11/2023 9:15 AM EDT Transition of Care (*required) *Additional Questions/Concerns Requiring PCP Follow-Up: For TCM, patient would need appt on/before 12/22/23 This documentation is being used for Transition of Care purposes: Yes Goal: Patient will demonstrate a safe transition from hospital to home Diagnosis on Discharge: Postop infection of left breast tissue putty mixer-culture with mycobacterium abscessus New rash Acute kidney injury History of breast cancer S/p bilateral mastectomies S/p bilateral breast reconstruction October 28, 2023 Discharge Specialty: Hem/Onc, Infectious Disease, and Nephrology *Name of Discharging Facility: [facility] Date of Facility Discharge: Admitted; 12/02/23 Discharged: 12/09/23 Date of Interactive Contact and Name of Requirements Manager: 12/11/23 Patient: Ike Flannery *Medication Review Completed: [...] with Providers: Primary: AMEENA GARCIA Specialty: ID ([facility]): 12/11/23 Specialty: Surgical Oncology (TATI Mason): 12/14/23 [...] Utilized/Needed by the Patient: [facility] infusion [facility] [employer] [id number] Telephone encounter Note* Telephone Encounter - Ana Jungnikosflorencio - 12/11/2023 9:15 AM EDT Called patient mailbox full [facility] [id number] History of Present illness Narrative* Og Morton [...] BMP in 1 week and follow-up withMD /PUZZLE ASSEMBLER in renal clinic in 1 months time. [...] seroma status post removal of left breast putty mixer on November 27, 2023 Hypertension Edema Depression/anxiety [...] last 7 days Lab Units 12/09/23 0511 12/08/235 12/08/23 1303 12/08/23 0514 12/07/23 0450 SODIUM [...] 8 (L) 01/31/2022 Please contact me at [phone] (Office) or [phone] (Answering service) with any questions. Please feel free to contact me through [email or web address] Secure chat during the daytime hours, if no response after 5 minutes then call the answering service. 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 Acute kidney [...] January 14 tentatively Ambulatory referral placed for [facility] ID Dr. Lui for residential management -has appointment January 13 WBC, platelets, creatinine, LFTs weekly while on antibiotics Prescription for imipenem provided to liaison planner Follow-up CBC renal function WBC 4.3, [...] 60 min Stress: Stress Concern Present (02/27/2022) [employer] [place] [employer] - Occupational Stress Questionnaire Feeling of Stress : To some extent Social Connections: Socially Integrated (02/27/2022) Social Connection and Isolation Panel [NHANES] Frequency of Communication with Friends and Family: Twice a week Frequency of Social Gatherings with Friends and Family: Three times a week Attends Jehov[employer] Services: More than 4 times per year [...] from last 7 days Lab Units 12/09/23 0512/08/23204412/08/23 1303 12/08/23 0514 12/07/23 0450 POTASSIUM mmol/L [...] Value Units Date/Time Resp Pathogens Panel/SARS CoV-2 [[id number]] Collected: 12/05/23 1158 Specimen: Nasopharynx Updated: 12/05/23 [...] COV 2 Not Detected Blood culture #2 [[id number]] Collected: 12/05/23 1040 Specimen: Blood Updated: 12/08/23 1508 Culture NO GROWTH 3 DAYS Blood culture #1 [[id number]] Collected: 12/05/23 1031 Specimen: Blood Updated: 12/08/23 1507 Culture NO GROWTH 3 DAYS Urine culture [[id number]] Collected: 12/02/23 2305 Specimen: Urine, Clean Catch Midstream Updated: 12/04/23 0709 Culture NO GROWTH AT <1000 CFU/mL Blood culture [[id number]] Collected: 12/02/23 2231 Specimen: Blood, Line Draw Updated: 12/08/23 0817 Specimen Notes SUBOPTIMAL VOLUME OF BLOOD COLLECTED, RESULTS MAY BE AFFECTED. Culture NO GROWTH 5 DAYS Blood culture [[id number]] Collected: 12/02/23 2213 Specimen: Blood, Line Draw [...] of this patient. Please call with questions. Ginoyumi Flower APRN, APPARATUS ENGINEERING TECHNOLOGIST [phone] This note was completed using a voice control panel operator crude unit system. Every effort was made to ensure accuracy. However, inadvertent computerized control panel operator crude unit errors may be present. Gino Flower APRN-ESPERANZA 12/09/23 1346 Carlene Landon MD, personally performed rlzj-ch-mipi diagnostic evaluation on this patient I reviewed and performed all the ross component of the patient visit I reviewed CELINA history, exam and MDM - Carlene Noguera MD 12/09/23 2:08 PM * Amy Singh MD - 12/08/2023 5:15 PM EDT Images from the original note were not included. [facility] INTERNAL MEDICINE [facility] DIVISION OF [facility] - ONCOLOGY/STROKE [address] [facility] [address] Hospital Medicine Progress Note Patient: Ike Flannery Date of : 1970 Room: [facility] PCP: RICHIE HANNA APRN-ESPERANZA Admission date: [...] her port since then and saw Dr. Gross today. Patient states she started having a [...] tenderness or frontal sinus tenderness. Mouth/Throat: Lips: [place]. Mouth: Mucous membranes are moist. Pharynx: Oropharynx [...] Q12H RADHA Infusions: As Needed: acetaminophen albuterol gdioplu-meyemhdqwbhsh-mbogmutb calcium gluconate calcium gluconate calcium gluconate cyclobenzaprine [...] LIST Principal Problem: MIRNA (acute kidney injury) ([facility]) Active Problems: Hypertension Malignant neoplasm of lower-inner [...] and plastic surgery following, referral sent to [facility] ID -continue cipro and clarithromycin, imipenem -benadryl PRN -follow cultures -Continue eliquis -Hold lisinopril, lasix and spironolactone until MIRNA improves -replace B12 -replace and monitor electrolytes per protocol and scale Amy Singh MD * Gino Flower, ROBER-APPARATUS ENGINEERING TECHNOLOGIST - 12/08/2023 5:13 PM EDT [facility] - Daily Progress Note Ike Flannery Admission date/time 12/02/2023 9:55 PM Today's Date and Time: 12/08/2023, 5:14 PM Impression : 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 Lui for manager long term care management If patient remains afebrile, we will [...] 60 min Stress: Stress Concern Present (02/27/2022) [employer] [place] [employer] - Occupational Stress Questionnaire Feeling of Stress : To some extent Social Connections: Socially Integrated (02/27/2022) Social Connection and Isolation Panel [NHANES] Frequency of Communication with Friends and Family: Twice a week Frequency of Social Gatherings with Friends and Family: Three times a week Attends Jehovah'S Witness Services: More than 4 times per year [...] Value Units Date/Time Resp Pathogens Panel/SARS CoV-2 [[id number]] Collected: 12/05/23 1158 Specimen: Nasopharynx Updated: 12/05/23 [...] COV 2 Not Detected Blood culture #2 [[id number]] Collected: 12/05/23 1040 Specimen: Blood Updated: 12/08/23 1508 Culture NO GROWTH 3 DAYS Blood culture #1 [[id number]] Collected: 12/05/23 1031 Specimen: Blood Updated: 12/08/23 1507 Culture NO GROWTH 3 DAYS Urine culture [[id number]] Collected: 12/02/23 2305 Specimen: Urine, Clean Catch Midstream Updated: 12/04/23 0709 Culture NO GROWTH AT <1000 CFU/mL Blood culture [[id number]] Collected: 12/02/23 2231 Specimen: Blood, Line Draw Updated: 12/08/23 0817 Specimen Notes SUBOPTIMAL VOLUME OF BLOOD COLLECTED, RESULTS MAY BE AFFECTED. Culture NO GROWTH 5 DAYS Blood culture [[id number]] Collected: 12/02/23 2213 Specimen: Blood, Line Draw [...] this patient. Please call with questions. Gino Flower APRN, CNP [phone] This note was completed using a voice control panel operator crude unit system. Every effort was made to ensure accuracy. However, inadvertent computerized control panel operator crude unit errors may be present. AMEENA Vallejo 12/08/23 1719 * Shereen Smallwood PA-C - 12/08/2023 3:46 PM EDT [facility] Plastic & Reconstructive Surgery [address] [place] [address] Office Jhon Gross MD, PhD Marisela Cuevas APRN-ESPERANZA Smallwood PA-C [...] Value Units Date/Time Resp Pathogens Panel/SARS CoV-2 [[id number]] Collected: 12/05/23 1158 Specimen: Nasopharynx Updated: 12/05/23 [...] COV 2 Not Detected Blood culture #2 [[id number]] Collected: 12/05/23 1040 Specimen: Blood Updated: 12/08/23 1508 Culture NO GROWTH 3 DAYS Blood culture #1 [[id number]] Collected: 12/05/23 1031 Specimen: Blood Updated: 12/08/23 1507 Culture NO GROWTH 3 DAYS Urine culture [[id number]] Collected: 12/02/23 2305 Specimen: Urine, Clean Catch Midstream Updated: 12/04/23 0709 Culture NO GROWTH AT <1000 CFU/mL Blood culture [[id number]] Collected: 12/02/23 2231 Specimen: Blood, Line Draw Updated: 12/08/23816 Specimen Notes SUBOPTIMAL VOLUME OF BLOOD COLLECTED, RESULTS MAY BE AFFECTED. Culture NO GROWTH 5 DAYS Blood culture [[id number]] Collected: 12/02/23 2213 Specimen: Blood, Line Draw Updated: 12/08/23812 Specimen Notes SUBOPTIMAL VOLUME OF BLOOD COLLECTED, RESULTS MAY BE AFFECTED. Culture NO GROWTH 5 DAYS Assessment: Ike Flannery is a 53 y.o. female Post-Operative Day: 11 s/p removal of left breast tissue putty mixer with I&D. Plan: - Pain well controlled with Tylenol, oxycodone, Toradol, - Tolerating a regular diet - Optimize nutrition with protein supplementation at every meal - Repeat blood cultures are negative at 3 days - Continue Eliquis 5mg BID for DVT prophylaxis - Mycobacterium abscesses: Appreciate Infectious Disease antibiotic management guidance: Cipro, Biaxin, Primaxin -infectious disease sent referral for [facility] for follow-up - MIRNA: Improving - Colace/Senna/MiraLAX [...] BMP in 1 week and follow-up withMD /PUZZLE ASSEMBLER in renal clinic in 1 months time. [...] seroma status post removal of left breast putty mixer on November 27, 2023 Hypertension Edema Depression/anxiety [...] 8 (L) 01/31/2022 Please contact me at [phone] (Office) or [phone] (Answering service) with any questions. Please feel free to contact me through [email or web address] Secure chat during the daytime hours, if no response after 5 minutes then call the answering service. gO Morton MD [facility] This note was created with the assistance of a speech-recognition program. Although the intention is to generate a document that actually reflects the content of the visit, no guarantees can be provided that every mistake has been identified and corrected by editing. * Amy Singh MD - 12/07/2023 7:02 PM EDT Images from the original note were not included. [facility] INTERNAL MEDICINE [facility] DIVISION OF [facility] - 7 ONCOLOGY/STROKE [address] [facility] [id number] Hospital Medicine Progress Note Patient: Ike Flannery Date of : 1970 Room: [facility]/ PCP: AMEENA GARCIA Admission date: 12/02/2023 9:55 [...] her port since then and saw Dr. Gross today. Patient states she started having a [...] Intake/Output Summary (Last 24 hours) at 12/07/2023 190 Last data filed at 12/07/2023 1823 Gross [...] tenderness or frontal sinus tenderness. Mouth/Throat: Lips: [place]. Mouth: Mucous membranes are moist. Pharynx: Oropharynx [...] ringer's, 100 mL/hr As Needed: acetaminophen albuterol nppvyju-utyeovxwgkvxm-kqclzdql calcium gluconate calcium gluconate calcium gluconate cyclobenzaprine [...] LIST Principal Problem: MIRNA (acute kidney injury) ([facility]) Active Problems: Hypertension Malignant neoplasm of lower-inner [...] monitor electrolytes per protocol and scale Amy Singh MD * Og Morton MD - 12/07/2023 [...] seroma status post removal of left breast putty mixer on November 27, 2023 Hypertension Edema Depression/anxiety [...] 8 (L) 01/31/2022 Please contact me at [phone] (Office) or [phone] (Answering service) with any questions. Please feel free to contact me through [email or web address] Secure chat during the daytime hours, if no response after 5 minutes then call the answering service. 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 Acute kidney [...] 60 min Stress: Stress Concern Present (02/27/2022) [place] [employer] - Occupational Stress Questionnaire Feeling of Stress : To some extent Social Connections: Socially Integrated (02/27/2022) Social Connection and Isolation Panel [NHANES] Frequency of Communication with Friends and Family: Twice a week Frequency of Social Gatherings with Friends and Family: Three times a week Attends Jehovah'S Witness Services: More than 4 times per year [...] 7 days Lab Units 12/07/2344912/06/23 2110 12/06/23 04312/05/23 1320 12/05/23 0545 POTASSIUM mmol/L 3.3* -- [...] Value Units Date/Time Resp Pathogens Panel/SARS CoV-2 [[id number]] Collected: 12/05/23 1158 Specimen: Nasopharynx Updated: 12/05/23 [...] COV 2 Not Detected Blood culture #2 [[id number]] Collected: 12/05/23 1040 Specimen: Blood Updated: 12/06/23 1508 Culture NO GROWTH 1 DAY Blood culture #1 [[id number]] Collected: 12/05/23 1031 Specimen: Blood Updated: 12/06/23 1507 Culture NO GROWTH 1 DAY Urine culture [[id number]] Collected: 12/02/23 2305 Specimen: Urine, Clean Catch Midstream Updated: 12/04/23 0709 Culture NO GROWTH AT <1000 CFU/mL Blood culture [[id number]] Collected: 12/02/23 2231 Specimen: Blood, Line Draw Updated: 12/07/23 0815 Specimen Notes SUBOPTIMAL VOLUME OF BLOOD COLLECTED, RESULTS MAY BE AFFECTED. Culture NO GROWTH 4 DAYS Blood culture [[id number]] Collected: 12/02/23 2213 Specimen: Blood, Line Draw [...] this patient. Please call with questions. Gino Flower APRN, APPARATUS ENGINEERING TECHNOLOGIST [phone] This note was completed using a voice control panel operator crude unit system. Every effort was made to ensure accuracy. However, inadvertent computerized control panel operator crude unit errors may be present. Gino Flower APRN-[facility] 12/07/23 1113 ICarlene MD, personally performed eggo-ee-qupj diagnostic evaluation on this patient I reviewed and performed all the ross component of the patient visit I reviewed CELINA history, exam and MDM - Carlene Noguera MD 12/07/23 12:53 PM * Nikki Rand RPH - 12/07/2023 9:28 AM EDT [facility] Department of Pharmacy Pharmacist to Physician Communication The dose of ciprofloxacin for SSTI has been changed to 500 mg every 12 hours per the [facility] approved renal dosing guidelines, based on an estimated creatinine clearance is 35.1 mL/min (A) (by C-G formula based on SCr of 2.07 mg/dL (H)). Thank you, Nikki Rand RPH * Shereen Smallwood PA-C - 12/07/2023 8:13 AM EDT Images from the original note were not included. [facility] Plastic & Reconstructive Surgery [facility] [address] [facility] [address] [place] [address] Office Jhon Gross MD, PhD Marisela Cuevas, PLANNING LEAD-APPARATUS ENGINEERING TECHNOLOGIST Shereen Smallwood PA-C Plastic Surgery Inpatient Progress [...] Value Units Date/Time Resp Pathogens Panel/SARS CoV-2 [[id number]] Collected: 12/05/23 1158 Specimen: Nasopharynx Updated: 12/05/23 [...] COV 2 Not Detected Blood culture #2 [[id number]] Collected: 12/05/23 1040 Specimen: Blood Updated: 12/07/23 1508 Culture NO GROWTH 2 DAYS Blood culture #1 [[id number]] Collected: 12/05/23 1031 Specimen: Blood Updated: 12/07/23 1507 Culture NO GROWTH 2 DAYS Urine culture [[id number]] Collected: 12/02/23 2305 Specimen: Urine, Clean Catch Midstream Updated: 12/04/23 0709 Culture NO GROWTH AT <1000 CFU/mL Blood culture [[id number]] Collected: 12/02/23 2231 Specimen: Blood, Line Draw Updated: 12/08/23 0817 Specimen Notes SUBOPTIMAL VOLUME OF BLOOD COLLECTED, RESULTS MAY BE AFFECTED. Culture NO GROWTH 5 DAYS Blood culture [[id number]] Collected: 12/02/23 2213 Specimen: Blood, Line Draw [...] MD, PhD [facility] ' Shereen Smallwood PA-C 12/08/23 1124 * Elayne Chow MD - 12/06/2023 10:03 AM EDT Images from the original note were not included. [facility] INTERNAL MEDICINE [facility] DIVISION OF [facility] - ONCOLOGY/STROKE [address] [place] [address] Hospital Medicine Progress Note Patient: Ike Flannery Date of : 1970 Room: [facility] PCP: AMEENA GARCIA Admission date: 12/02/2023 [...] her port since then and saw Dr. Gross today. Patient states she started having a [...] tenderness or frontal sinus tenderness. Mouth/Throat: Lips: [place]. Mouth: Mucous membranes are moist. Pharynx: Oropharynx [...] mL/hr (12/05/23 0641) As Needed: acetaminophen albuterol cdhusmh-kdjamdfaddlvi-fzehzten calcium gluconate calcium gluconate calcium gluconate cyclobenzaprine [...] LIST Principal Problem: MIRNA (acute kidney injury) ([facility]) Active Problems: Hypertension Malignant neoplasm of lower-inner quadrant of right breast of female, estrogen receptor positive ([facility]) Cellulitis of left breast Infection of deep [...] electrolytes per protocol and scale Liliane Valle APRN-APPARATUS ENGINEERING TECHNOLOGIST 12/06/23 1436 Physician Attestation I personally performed [...] Results from last 7 days Lab Units 12/06/2343412/05/2354412/04/2330412/03/23 1737 12/03/23 1628 12/03/2334912/02/23 23012/02/23 2213 TOTAL PROTEIN g/dL 5.8* 5.6* 5.4* [...] Results from last 7 days Lab Units 12/06/2343412/05/2354412/04/2330412/03/2334912/02/23 2213 WBC X10E9/L 3.0* 3.9* 4.3 5.8 [...] seroma status post removal of left breast putty mixer on November 27, 2023 Hypertension Edema Depression/anxiety [...] For questions please call: Answering Service at [phone] Or Office at [phone] This note was created with the assistance [...] : Postop infection of left breast tissue putty mixer-culture growing acid-fast bacilli Acute kidney injury History [...] 60 min Stress: Stress Concern Present (02/27/2022) [place] [employer] - Occupational Stress Questionnaire Feeling of Stress : To some extent Social Connections: Socially Integrated (02/27/2022) Social Connection and Isolation Panel [NHANES] Frequency of Communication with Friends and Family: Twice a week Frequency of Social Gatherings with Friends and Family: Three times a week Attends Jehovah'S Witness Services: More than 4 times per year [...] 144/78 Pulse: 85 81 84 96 Resp: Temp: 37 C (98.6 F) 37.5 C [...] Value Units Date/Time Resp Pathogens Panel/SARS CoV-2 [[id number]] Collected: 12/05/23 1158 Specimen: Nasopharynx Updated: 12/05/23 [...] COV 2 Not Detected Blood culture #2 [[id number]] Resulted: 12/05/23 1041 Specimen: Blood, Peripheral Draw Updated: 12/05/23 1041 Blood culture #1 [[id number]] Resulted: 12/05/23 1032 Specimen: Blood, Peripheral Draw Updated: 12/05/23 1032 Urine culture [[id number]] Collected: 12/02/23 2305 Specimen: Urine, Clean Catch Midstream Updated: 12/04/23 0709 Culture NO GROWTH AT <1000 CFU/mL Blood culture [[id number]] Collected: 12/02/23 2231 Specimen: Blood, Line Draw Updated: 12/05/23 0815 Specimen Notes SUBOPTIMAL VOLUME OF BLOOD COLLECTED, RESULTS MAY BE AFFECTED. Culture NO GROWTH 2 DAYS Blood culture [[id number]] Collected: 12/02/23 2213 Specimen: Blood, Line Draw [...] or collecting system dilatation. Finalized by Jesus Singh MD on 12/04/2023 9:23 AM Medications: apixaban, [...] This note was completed using a voice control panel operator crude unit system. Every effort was made to ensure accuracy. However, inadvertent computerized control panel operator crude unit errors may be present. * Dorothy Morales, [facility] - 12/05/2023 6:53 PM EDT Pharmacy [...] Hollis PA-C 5 mg at 12/05/23 0904 smqgfoc-bifxazgneyzag-zfxvzsmg (EXCEDRIN MIGRAINE) 250-250-65 mg per tablet 2 tablet 2 tablet oral Q6H PRN Liliane Valle APRN-APPARATUS ENGINEERING TECHNOLOGIST 2 tablet at 12/04/23 0809 calcium gluconate [...] IVPB 200 mg intravenous Daily Liliane Valle APRN-APPARATUS ENGINEERING TECHNOLOGIST Stopped at 12/05/23 1248 labetaloL (NORMODYNE,TRANDATE) injection [...] from the original note were not included. [facility] INTERNAL MEDICINE [facility] DIVISION OF [facility] - ONCOLOGY/STROKE [address] [place] [address] Hospital Medicine Progress Note Patient: Ike Flannery Date of : 1970 Room: [facility] PCP: AMEENA GARCIA Admission date: 12/02/2023 [...] her port since then and saw Dr. Gross today. Patient states she started having a [...] tenderness or frontal sinus tenderness. Mouth/Throat: Lips: [place]. Mouth: Mucous membranes are moist. Pharynx: Oropharynx [...] mL/hr (12/05/23 0641) As Needed: acetaminophen albuterol dywtmjo-uwuzlbvkctikr-otnikygc calcium gluconate calcium gluconate calcium gluconate cyclobenzaprine [...] LIST Principal Problem: MIRNA (acute kidney injury) ([facility]) Active Problems: Hypertension Malignant neoplasm of lower-inner quadrant of right breast of female, estrogen receptor positive ([facility]) Cellulitis of left breast Infection of deep [...] Abx changes made per ID. Liliane Valle, PLANNING LEAD-APPARATUS ENGINEERING TECHNOLOGIST 12/05/23 1527 Physician Attestation I personally performed [...] last 7 days Lab Units 12/05/2345 12/04/23 1656 12/04/23 0305 12/03/23 1220 12/03/23 [...] last 7 days Lab Units 12/05/2345 12/04/23 0305 12/03/23 1737 12/03/23 1628 12/03/23 0350 12/02/23 2305 12/02/232212 TOTAL PROTEIN g/dL 5.6* 5.4* -- 5.4* [...] 0545 12/04/23 0305 12/03/23 0350 12/02/23221211/30/23 0930 GLUCOSE mg/dL 95 91 103* 106* [...] serum protein electrophoresis was negative monoclonal bands, JUTSIN anti MPO anti PR3 and anti-GBM were negative, C3 was 158 and C4 was 38, urine dipstick was negative for blood or protein, fractional excretion of sodium was 1.8% and random urine protein to creatinine ratio was 0.3 grams/gram. Left breast cellulitis with infected seroma status post removal of left breast putty mixer on November 27, 2023 Hypertension Edema Depression/anxiety [...] For questions please call: Answering Service at [phone] Or Office at [phone] This note was created with the assistance of a speech-recognition program. Although the intention is to generate a document that actually reflects the content of the visit, no guarantees can be provided that every mistake has been identified and corrected by editing. * Elayne Chow MD - 12/04/2023 3:39 PM EDT Images from the original note were not included. [facility] INTERNAL MEDICINE [facility] DIVISION OF [facility] - 7 ONCOLOGY/STROKE [address] [place] [address] Hospital Medicine Progress Note Patient: Ike Flannery Date of : 1970 Room: [facility] PCP: AMEENA GARCIA Admission date: 12/02/2023 [...] her port since then and saw Dr. Gross today. Patient states she started having a low grade fever and chills [facility]: Status: improved. No overnight events [...] tenderness or frontal sinus tenderness. Mouth/Throat: Lips: [place]. Mouth: Mucous membranes are moist. Pharynx: Oropharynx [...] mL/hr (12/04/23 1212) As Needed: acetaminophen albuterol sgnrohj-stxlzhnhzvokf-qlsxbfkh calcium gluconate calcium gluconate calcium gluconate cyclobenzaprine [...] Protein Urine Random 130 (H) <120 mg/L U/Pro/Regional Clinical Director Ratio Calc 0.30 (H) <0.2 Sodium, urine, [...] or collecting system dilatation. Finalized by Jesus Singh MD on 12/04/2023 9:23 AM HOSPITAL PROBLEM LIST Principal Problem: MIRNA (acute kidney injury) ([facility]) Active Problems: Hypertension Malignant neoplasm of lower-inner quadrant of right breast of female, estrogen receptor positive ([facility]) Cellulitis of left breast Infection of deep [...] needs while inpatient History of DVT Continue keron, reports she has been resumed on this [...] and the plan . MD Liliane Madrid, PLANNING LEAD-APPARATUS ENGINEERING TECHNOLOGIST 12/04/23 1744 * Carlene Noguera MD - 12/04/2023 11:27 AM EDT Images from the original note were not included. 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 putty mixer-culture growing acid-fast bacilli Acute kidney injury History [...] 60 min Stress: Stress Concern Present (02/27/2022) [place] [employer] - Occupational Stress Questionnaire Feeling of Stress : To some extent Social Connections: Socially Integrated (02/27/2022) Social Connection and Isolation Panel [NHANES] Frequency of Communication with Friends and Family: Twice a week Frequency of Social Gatherings with Friends and Family: Three times a week Attends Jehovah'S Witness Services: More than 4 times per year [...] 134/84 Pulse: 90 78 75 Resp: 20 Temp: 37.7 C (99.9 F) 37.1 C [...] Procedure Component Value Units Date/Time Urine culture [[id number]] Collected: 12/02/23 2305 Specimen: Urine, Clean Catch Midstream Updated: 12/04/23 0709 Culture NO GROWTH AT <1000 CFU/mL Blood culture [[id number]] Collected: 12/02/23 223 Specimen: Blood, Line Draw Updated: 12/04/23 0815 Specimen Notes SUBOPTIMAL VOLUME OF BLOOD COLLECTED, RESULTS MAY BE AFFECTED. Culture NO GROWTH 1 DAY Blood culture [[id number]] Collected: 12/02/23 221 Specimen: Blood, Line Draw Updated: 12/04/23 0815 Specimen Notes SUBOPTIMAL VOLUME OF BLOOD COLLECTED, RESULTS MAY BE AFFECTED. Culture NO GROWTH 1 DAY Anaerobic culture [[id number]] Collected: 11/27/23 1548 Specimen: Body Fluid from Breast, Left Updated: 12/02/23 0851 Specimen Notes SPECIMEN A Culture NO GROWTH 5 DAYS Fungal culture includes fungal smear [[id number]] Collected: 11/27/23 1548 Specimen: Body Fluid from Breast, Left Updated: 11/28/23 0702 Specimen Notes SPECIMEN A Fungal smear -- NO FUNGAL ELEMENTS SEEN ON DIRECT SMEAR Culture PENDING AFB culture concentrated includes AFB smear [[id number]] (Abnormal) Collected: 11/27/23 1548 Specimen: Body Fluid from Breast, Left Updated: 12/01/23 1056 Specimen Notes SPECIMEN A AFB Smear NO ACID FAST BACILLI (CONCENTRATED SMEAR) Culture ACID FAST BACILLI ISOLATED Aspirate culture includes gram stain [[id number]] (Abnormal) Collected: 11/27/23 1548 Specimen: Aspirate Atr [...] or collecting system dilatation. Finalized by Jesus Singh MD on 12/04/2023 9:23 AM Medications: apixaban, [...] This note was completed using a voice control panel operator crude unit system. Every effort was made to ensure accuracy. However, inadvertent computerized control panel operator crude unit errors may be present. * DAVID Tinajero [...] of left breast MIRNA (acute kidney injury) (CMS-HCC) Past Medical History: Past Medical History: Diagnosis Date Breast cancer ([facility]) 2023 mammary carcinoma Deep vein thrombosis ([facility]) 09/18/2023 Left calf Hypertension Knee pain PONV (postoperative nausea and vomiting) Port-A-Cath in place 05/13/2023 Visual impairment Glasses Past Surgical History: Past Surgical History: Procedure Laterality Date ARTHROSCOPIC REPAIR ACL Right 2006 ARTHROSCOPIC REPAIR ACL Left 08/26/2021 BREAST BIOPSY Right 2023 mammary carcinoma EXCISION LYMPH NODE AXILLARY DISSECTION Right 10/28/2023 Performed by Christy He MD at [facility] HYSTERECTOMY IMMEDIATE BREAST RECONSTRUCTION WITH TISSUE CARD MOUNTER PLACEMENT Bilateral 10/28/2023 Performed by Jhon Gross MD at [facility] INCISION DRAINAGE BREAST Left 11/27/2023 Performed by Jhon Gross MD at [facility] MAGNETIC SEED LOCALIZATION EXCISION/BIOPSY MASS BREAST (MAG SEED LOCALIZED TARGETED DISSECTION FOR RETRIEVAL OF PREVIOUSLY CLIPPED LYMPH NODE) Right 10/28/2023 Performed by Christy He MD at [facility] MASTECTOMY BREAST SIMPLE RISK REDUCING SKIN SPARING Left 10/28/2023 Performed by Christy He MD at [facility] MASTECTOMY BREAST SIMPLE SKIN SPARING Right 10/28/2023 Performed by Christy He MD at [facility] MENISCECTOMY Bilateral 2022 PORTACATH PLACEMENT Left left chest REMOVAL CARD MOUNTER TISSUE BREAST Left 11/27/2023 Performed by Jhon Gross MD at [facility] RIGHT AXILLARY PROPHYLACTIC BYPASS LYMPHOVENOUS Right 10/28/2023 Performed by Jhon Gross MD at [facility] TONSILLECTOMY AND ADENOIDECTOMY Age [...] last 3 days Lab Units 12/04/23 03012/03/23 0350 12/02/23 2213 WBC X10E9/L 4.3 5.8 [...] VERYLOWLIP 16 01/31/2022 No results found for: [id number] No results found for: FOLATE No results [...] Hollis PA-C 5 mg at 12/04/23 0809 krvvmuk-vwziovplllzen-mdmzvdhz (EXCEDRIN MIGRAINE) 250-250-65 mg per tablet 2 tablet 2 tablet oral Q6H PRN Liliane Valle APRN-APPARATUS ENGINEERING TECHNOLOGIST 2 tablet at 12/04/23 0809 calcium gluconate [...] Skin (per nursing flow sheets): Skin Color: [place]; Pale (12/04/23804) Skin Temp: Warm; Dry (12/04/23804) Skin Integrity: Intact (12/02/23 9355) Wound (per nursing flow sheets): Wound 11/27/23 [...] of appetite (12/04/23804) Relieved by: Antiemetic (12/03/23 06) Edema (per nursing flow sheets): RLE Edema: [...] Scale, 12/02) Usual Body Weight: see above [place] Body Weight: 70.4 kg Percent [place] Body Weight: 138% Weight Changes: Weight fluctuations noted. With weight loss of 18 lbs x 5 months, 8% Body Mass Index: Body mass index is 29.79 kg/m . BMI Category: Pre-obese (25.00- 29.99) Comparative Standards: Estimated Energy Needs: 5054-3130 kcals daily. Method and weight used: 25-30 kcal/kg IBW Estimated Protein Needs: 84-141 grams daily. Method and weight used: 1.2-2 g protein/kg IBW Estimated Fluid Needs: 8702-7308 ml daily. Method weight used: 25-30 ml/kg [...] ofcare. Jessenia Key RD,LD Clinical Dietitian Office: [phone] * Epifanio Henry MD - 12/04/2023 9:41 [...] 7 days Lab Units 12/04/23 0305 12/03/23 1737 12/03/23 1628 12/03/23 [...] seroma status post removal of left breast putty mixer on November 27, 2023 Hypertension Edema Depression/anxiety [...] For questions please call: Answering Service at [phone] Or Office at [phone] This note was created with the assistance of a speech-recognition program. Although the intention is to generate a document that actually reflects the content of the visit, no guarantees can be provided that every mistake has been identified and corrected by editing. * Shereen Smallwood PA-C - 12/04/2023 8:59 AM EDT Images from the original note were not included. [facility] Plastic & Reconstructive Surgery [facility] [address] [place] [address] Office Jhon Gross MD, PhD Marisela Cuevas, PLANNING LEAD-APPARATUS ENGINEERING TECHNOLOGIST Shereen Smalwlood PA-C Plastic Surgery Inpatient Progress Note Subjective: [...] Procedure Component Value Units Date/Time Urine culture [[id number]] Collected: 12/02/23 2305 Specimen: Urine, Clean Catch Midstream Updated: 12/04/23 0709 Culture NO GROWTH AT <1000 CFU/mL Blood culture [[id number]] Collected: 12/02/23 2231 Specimen: Blood, Line Draw Updated: 12/04/23 0815 Specimen Notes SUBOPTIMAL VOLUME OF BLOOD COLLECTED, RESULTS MAY BE AFFECTED. Culture NO GROWTH 1 DAY Blood culture [[id number]] Collected: 12/02/23 2213 Specimen: Blood, Line Draw Updated: 12/04/23 08 Specimen Notes SUBOPTIMAL VOLUME OF BLOOD COLLECTED, RESULTS MAY BE AFFECTED. Culture NO GROWTH 1 DAY Anaerobic culture [[id number]] Collected: 11/27/23 1548 Specimen: Body Fluid from Breast, Left Updated: 12/02/23 0851 Specimen Notes SPECIMEN A Culture NO GROWTH 5 DAYS Fungal culture includes fungal smear [[id number]] Collected: 11/27/23 1548 Specimen: Body Fluid from Breast, Left Updated: 11/28/23 0702 Specimen Notes SPECIMEN A Fungal smear -- NO FUNGAL ELEMENTS SEEN ON DIRECT SMEAR Culture PENDING AFB culture concentrated includes AFB smear [[id number]] (Abnormal) Collected: 11/27/23 1548 Specimen: Body Fluid from Breast, Left Updated: 12/01/23 1056 Specimen Notes SPECIMEN A AFB Smear NO ACID FAST BACILLI (CONCENTRATED SMEAR) Culture ACID FAST BACILLI ISOLATED Aspirate culture includes gram stain [[id number]] (Abnormal) Collected: 11/27/23 1548 Specimen: Aspirate Atr Updated: 12/01/23 1544 Specimen Notes SPECIMEN A Gram Stain Result >25 WHITE BLOOD CELLS/LPF 0 SQUAMOUS EPITHELIAL CELLS/LPF NO ORGANISMS SEEN Culture MODERATE ACID FAST BACILLI ISOLATED REPORT UPDATED GROWTH OBSERVED AT 48 HOURS Assessment: Ike Flannery is a 53 y.o. female one week: Status post I&D left breast cellulitis with removal of tissue putty mixer Plan: - Pain well controlled with Tylenol, [...] acid-fast bacilli. Patient was initially referred to [facility] however this is out of network for her insurance, referrals were sent to [facility], [facility] and [facility]. [facility] is out of network, however [facility] could not get her in until December or January. Currently waiting to hear back from [facility]. - patient transitioned to oral clindamycin and Cipro for antibiotic coverage and MIRNA secondary to vancomycin. All questions were answered to her satisfaction. She was counseled regarding my impressions, instructions for management and the importance of compliance with treatment. INÉS PAYNE MD, PhD [facility] Plastic & Reconstructive Surgery Shereen Smallwood PA-C 12/04/23905 * Shereen Smallwood PA-C - 12/03/2023 8:58 AM EDT Images from the original note were not included. [facility] Plastic & Reconstructive Surgery [facility] [address] [place] [id number] Office Jhon Gross MD, PhD Marisela Cuevas, PLANNING LEAD-APPARATUS ENGINEERING TECHNOLOGIST Shereen Smallwood PA-C Plastic Surgery Inpatient Progress [...] Procedure Component Value Units Date/Time Urine culture [[id number]] Collected: 12/02/23 2341 Specimen: Urine Updated: 12/03/23 0829 Blood culture [[id number]] Collected: 12/02/232235 Specimen: Blood, Peripheral Draw Updated: 12/02/232235 Blood culture [[id number]] Collected: 12/02/232235 Specimen: Blood, Peripheral Draw Updated: 12/02/232235 Anaerobic culture [[id number]] Collected: 11/27/23 154 Specimen: Body Fluid from Breast, Left Updated: 12/02/23 0851 Specimen Notes SPECIMEN A Culture NO GROWTH 5 DAYS Fungal culture includes fungal smear [[id number]] Collected: 11/27/23 1548 Specimen: Body Fluid from Breast, Left Updated: 11/28/23 0702 Specimen Notes SPECIMEN A Fungal smear -- NO FUNGAL ELEMENTS SEEN ON DIRECT SMEAR Culture PENDING AFB culture concentrated includes AFB smear [[id number]] (Abnormal) Collected: 11/27/23 1548 Specimen: Body Fluid from Breast, Left Updated: 12/01/23 1056 Specimen Notes SPECIMEN A AFB Smear NO ACID FAST BACILLI (CONCENTRATED SMEAR) Culture ACID FAST BACILLI ISOLATED Aspirate culture includes gram stain [[id number]] (Abnormal) Collected: 11/27/23 1548 Specimen: Aspirate Atr Updated: 12/01/23 1544 Specimen Notes SPECIMEN A Gram Stain Result >25 WHITE BLOOD CELLS/LPF 0 SQUAMOUS EPITHELIAL CELLS/LPF NO ORGANISMS SEEN Culture MODERATE ACID FAST BACILLI ISOLATED REPORT UPDATED GROWTH OBSERVED AT 48 HOURS Mrsa Pcr nasal swab [[id number]] Collected: 11/27/23 0020 Specimen: Nasal Updated: 11/27/23 0957 Mrsa PCR Negative Blood culture [[id number]] Collected: 11/26/23 1715 Specimen: Blood Updated: 12/01/232007 Culture NO GROWTH 5 DAYS Assessment: Ike Flannery is a 53 y.o. female Post-Operative Day: 8 - s/p irrigation and debridement with removal of left breast tissue putty mixer Plan: - discussed with patient that from a plastic surgery standpoint, she appears to be healing appropriately. - patient with positive id from her office aspirate as well as intraoperative cultures. Infectious Disease was reaching out for referral to [facility]. Patient lives in [place], wondering if [facility] would be an option. - infectious [...] Smallwood PA-C 12/04/23 0858 * Nathaniel Narvaez [facility] - 12/02/2023 11:19 PM EDT Pharmacy was [...] serum creatinine please re-consult. documented in this [facility]10-09-2024 Miscellaneous Notes* Telephone Encounter - Nabila Mora CMA - 12/09/2023 3:43 PM EDT IKE FLANNERY (Ross: [id number]) [facility] has not yet replied to your PA request. You may close this dialog, return to your dashboard, and perform other tasks. To check for an update later, open this request again from your dashboard. If [facility] has not replied to your request within 24 hours please contact [employer] at (TTY ) PA form to be scanned into chart. [facility] Tele[facility] encounter Note* Telephone Encounter - Nabila Mora CMA - 12/09/2023 3:43 PM EDT IKE FLANNERY (Ross: [id number]) [facility] has not yet replied to your PA request. You may close this dialog, return to your dashboard, and perform other tasks. To check for an update later, open this request again from your dashboard. If [facility] has not replied to your request within 24 hours please contact [employer] at (TTY ) PA form to be scanned into chart. [facility] [employer] [phone] Plan of care note* Plan of Care - Kahlil Gregorio RN - 12/09/2023 3:21 PM EDT Patient remains free of falls and injuries. Patient also continues to deny any pain. [facility]10-09-2024 Miscellaneous Notes* Plan of Care - Kahlil Gregorio RN - 12/09/2023 3:21 PM EDT Patient remains free of falls and injuries. Patient also continues to deny any pain. * Plan of Care - Aliza Benito RN - 12/09/2023 4:18 AM EDT Problem: Low Risk Fall Score Description: Pickens Fall Score of 0 - 24 or indicated by [facility] Assessment Goal: Patient should be free from fall Description: Interventions: 1. Newcomb to environment 2. Hourly rounds addressing the [...] non-skid footwear 11. Teach patient and patient registration representative to maintain environment for safety and engage in all aspects of fall prevention program Outcome: Progressing Note: Evaluation of progress towards goal: Pt remains free from falls. Will continue to provide a safe environment. Problem: Pain Goal: Patient goal is pain score less than 4, able to rest, and participant in treatment plan as appropriate Description: INTERVENTIONS: 1. Encourage patient or legal registration representative to report early pain and ask [...] per policy 9. Teach patient or legal registration representative interventions for comforting Outcome: Progressing Note: [...] at the bedside 7. Instruct patient/ patient registration representative about use of safety devices 8. Include patient/ patient registration representative in decisions related to safety Outcome: [...] hygiene technique 7. Identify and instruct patient/patient registration representative in use of appropriate isolation precautionsfor identified infection/symptoms 8. Provide and discuss with patient/patient registration representative on educational MDRO sheet 9. Encourage and monitor nutritional status daily and consult marketing traffic coordinator if indicated 10. Implement neutropenic guidelines as needed 11. Review exposure to history of communicable disease and recent travel history on admission 12. Encourage annual influenza vaccine 13. Encourage pneumonia vaccine Outcome: Progressing Note: Evaluation of progress towards goal: pt remains afebrile, currently on antibiotics Problem: Knowledge Deficit Goal: Patient/patient registration representative demonstrates understanding of disease process, treatment [...] Collaborate with ancillary departments 14. Include patient/patient registration representative in decisions related to anxiety Outcome: [...] providing care 6. Collaborate with pastoral/spiritual care, clinical social work therapist, mental health counselor as needed. 7. Instruct patient on diversional activities such as physical activity, distraction, and deep breathing exercises to assist with coping 8. Involve patient's registration representative in care Outcome: Progressing Note: Evaluation [...] hydration as ordered 5. Instruct patient/ legal registration representative on nutrition/diet; fluid/hydration restrictions as appropriate [...] be free from fall Description: Interventions: 1. Newcomb to environment 2. Hourly rounds addressing the [...] non-skid footwear 11. Teach patient and patient registration representative to maintain environment for safety and engage in all aspects of fall prevention program Outcome: Progressing Note: Evaluation of progress towards goal: pt remains free from falls at this time. Problem: Pain Goal: Patient goal is pain score less than 4, able to rest, and participant in treatment plan as appropriate Description: INTERVENTIONS: 1. Encourage patient or legal registration representative to report early pain and ask [...] per policy 9. Teach patient or legal registration representative interventions for comforting Outcome: Progressing Note: [...] at the bedside 7. Instruct patient/ patient registration representative about use of safety devices 8. Include patient/ patient registration representative in decisions related to safety Outcome: [...] hygiene technique 7. Identify and instruct patient/patient registration representative in use of appropriate isolation precautionsfor identified infection/symptoms 8. Provide and discuss with patient/patient registration representative on educational MDRO sheet 9. Encourage and monitor nutritional status daily and consult marketing traffic coordinator if indicated 10. Implement neutropenic guidelines as needed 11. Review exposure to history of communicable disease and recent travel history on admission 12. Encourage annual influenza vaccine 13. Encourage pneumonia vaccine Outcome: Progressing Note: Evaluation of progress towards goal: pt remains afebrile at this time. Problem: Knowledge Deficit Goal: Patient/patient registration representative demonstrates understanding of disease process, treatment [...] Collaborate with ancillary departments 14. Include patient/patient registration representative in decisions related to anxiety Outcome: [...] providing care 6. Collaborate with pastoral/spiritual care, clinical social work therapist, mental health counselor as needed. 7. Instruct patient on diversional activities such as physical activity, distraction, and deep breathing exercises to assist with coping 8. Involve patient's registration representative in care Outcome: Progressing Note: Evaluation [...] hydration as ordered 5. Instruct patient/ legal registration representative on nutrition/diet; fluid/hydration restrictions as appropriate Outcome: Progressing Note: Evaluation of progress towards goal: electrolytes replaced within normal limits at this time. * Discharge Planning Note - Mariah Starr RN - 12/08/2023 3:23 PM EDT DISCHARGE PLANNING NOTE Patient discussed in DTRs. Barrier to discharge is ID plan. 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 Task sent to [facility] to get appointment set up. Plan is for patient to be discharged on Primaxin IV - sent msg tocheck cost. - MARIAH STARR RN 12/08/23 3:26 PM Primaxin IV is 100% covered. [facility] Medication will be delivered to the patient's home between 5-9pm. Spoke with Skye at [facility] and they have the standing order for weekly labs and weekly dressing change. Patient updated and agreeable with plan to discharge home this afternoon. Patient has appointment set for 01/14/[address] Herman Lui. - MARIAH STARR RN 12/09/23 2:19 PM [facility] - MARIAH STARR RN 12/09/23 3:04 PM * Plan of Care - Aliza Benito RN - 12/08/2023 3:32 AM EDT Problem: Low Risk Fall Score Description: Pickens Fall Score of 0 - 24 or indicated by [facility] Assessment Goal: Patient should be free from fall Description: Interventions: 1. Newcomb to environment 2. Hourly rounds addressing the [...] non-skid footwear 11. Teach patient and patient registration representative to maintain environment for safety and engage in all aspects of fall prevention program Outcome: Progressing Note: Evaluation of progress towards goal: Pt remains free from falls. Will continue to provide a safe environment. Problem: Pain Goal: Patient goal is pain score less than 4, able to rest, and participant in treatment plan as appropriate Description: INTERVENTIONS: 1. Encourage patient or legal registration representative to report early pain and ask [...] per policy 9. Teach patient or legal registration representative interventions for comforting Outcome: Progressing Note: [...] at the bedside 7. Instruct patient/ patient registration representative about use of safety devices 8. Include patient/ patient registration representative in decisions related to safety Outcome: [...] hygiene technique 7. Identify and instruct patient/patient registration representative in use of appropriate isolation precautionsfor identified infection/symptoms 8. Provide and discuss with patient/patient registration representative on educational MDRO sheet 9. Encourage and monitor nutritional status daily and consult marketing traffic coordinator if indicated 10. Implement neutropenic guidelines as needed 11. Review exposure to history of communicable disease and recent travel history on admission 12. Encourage annual influenza vaccine 13. Encourage pneumonia vaccine Outcome: Progressing Note: Evaluation of progress towards goal: pt remains afebrile at this time, antibiotics are administered as ordered Problem: Knowledge Deficit Goal: Patient/patient registration representative demonstrates understanding of disease process, treatment [...] Collaborate with ancillary departments 14. Include patient/patient registration representative in decisions related to anxiety Outcome: [...] providing care 6. Collaborate with pastoral/spiritual care, clinical social work therapist, mental health counselor as needed. 7. Instruct patient on diversional activities such as physical activity, distraction, and deep breathing exercises to assist with coping 8. Involve patient's registration representative in care Outcome: Progressing Note: Evaluation [...] hydration as ordered 5. Instruct patient/ legal registration representative on nutrition/diet; fluid/hydration restrictions as appropriate [...] 12:06 PM * Plan of Care - Corrina Richardson RN - 12/07/2023 10:30 AM EDT Problem: Pain Goal: Patient goal is pain score less than 4, able to rest, and participant in treatment plan as appropriate Description: INTERVENTIONS: 1. Encourage patient or legal registration representative to report early pain and ask [...] per policy 9. Teach patient or legal registration representative interventions for comforting Outcome: Progressing Note: [...] at the bedside 7. Instruct patient/ patient registration representative about use of safety devices 8. Include patient/ patient registration representative in decisions related to safety Outcome: [...] hygiene technique 7. Identify and instruct patient/patient registration representative in use of appropriate isolation precautionsfor identified infection/symptoms 8. Provide and discuss with patient/patient registration representative on educational MDRO sheet 9. Encourage and monitor nutritional status daily and consult marketing traffic coordinator if indicated 10. Implement neutropenic guidelines as needed 11. Review exposure to history of communicable disease and recent travel history on admission 12. Encourage annual influenza vaccine 13. Encourage pneumonia vaccine Outcome: Progressing Note: Evaluation of progress towards goal: pt afebrile. WBC 2.7 Problem: Knowledge Deficit Goal: Patient/patient registration representative demonstrates understanding of disease process, treatment [...] of 0 - 24 or indicated by [facility] Assessment Goal: Patient should be free from fall Description: Interventions: 1. Newcomb to environment 2. Hourly rounds addressing the [...] non-skid footwear 11. Teach patient and patient registration representative to maintain environment for safety and engage in all aspects of fall prevention program Outcome: Progressing Note: Evaluation of progress towards goal: Pt remains free from falls. Will continue to provide a safe environment. Problem: Pain Goal: Patient goal is pain score less than 4, able to rest, and participant in treatment plan as appropriate Description: INTERVENTIONS: 1. Encourage patient or legal registration representative to report early pain and ask [...] per policy 9. Teach patient or legal registration representative interventions for comforting Outcome: Progressing Note: [...] at the bedside 7. Instruct patient/ patient registration representative about use of safety devices 8. Include patient/ patient registration representative in decisions related to safety Outcome: [...] hygiene technique 7. Identify and instruct patient/patient registration representative in use of appropriate isolation precautionsfor identified infection/symptoms 8. Provide and discuss with patient/patient registration representative on educational MDRO sheet 9. Encourage and monitor nutritional status daily and consult marketing traffic coordinator if indicated 10. Implement neutropenic guidelines as needed 11. Review exposure to history of communicable disease and recent travel history on admission 12. Encourage annual influenza vaccine 13. Encourage pneumonia vaccine Outcome: Progressing Note: Evaluation of progress towards goal: patient remains on antibiotics at this time, monitoring for s/s of infection Problem: Knowledge Deficit Goal: Patient/patient registration representative demonstrates understanding of disease process, treatment [...] Collaborate with ancillary departments 14. Include patient/patient registration representative in decisions related to anxiety Outcome: [...] providing care 6. Collaborate with pastoral/spiritual care, clinical social work therapist, mental health counselor as needed. 7. Instruct patient on diversional activities such as physical activity, distraction, and deep breathing exercises to assist with coping 8. Involve patient's registration representative in care Outcome: Progressing Note: Evaluation [...] hydration as ordered 5. Instruct patient/ legal registration representative on nutrition/diet; fluid/hydration restrictions as appropriate Outcome: Progressing Note: Evaluation of progress towards goal: electrolytes are within range at this time * Plan of Care - Corrina Richardson RN - 12/06/2023 9:51 AM EDT Problem: Pain Goal: Patient goal is pain score less than 4, able to rest, and participant in treatment plan as appropriate Description: INTERVENTIONS: 1. Encourage patient or legal registration representative to report early pain and ask [...] per policy 9. Teach patient or legal registration representative interventions for comforting Outcome: Progressing Note: [...] at the bedside 7. Instruct patient/ patient registration representative about use of safety devices 8. Include patient/ patient registration representative in decisions related to safety Outcome: [...] hygiene technique 7. Identify and instruct patient/patient registration representative in use of appropriate isolation precautionsfor identified infection/symptoms 8. Provide and discuss with patient/patient registration representative on educational MDRO sheet 9. Encourage and monitor nutritional status daily and consult marketing traffic coordinator if indicated 10. Implement neutropenic guidelines as needed 11. Review exposure to history of communicable disease and recent travel history on admission 12. Encourage annual influenza vaccine 13. Encourage pneumonia vaccine Outcome: Progressing Note: Evaluation of progress towards goal: pt afebrile this AM. WBC 3.0 Positive Wound culture FastBacili Problem: Knowledge Deficit Goal: Patient/patient registration representative demonstrates understanding of disease process, treatment [...] be free from fall Description: Interventions: 1. Newcomb to environment 2. Hourly rounds addressing the [...] non-skid footwear 11. Teach patient and patient registration representative to maintain environment for safety and engage in all aspects of fall prevention program Outcome: Progressing Note: Evaluation of progress towards goal: pt remains free from falls. Pt independent in room. Problem: Pain Goal: Patient goal is pain score less than 4, able to rest, and participant in treatment plan as appropriate Description: INTERVENTIONS: 1. Encourage patient or legal registration representative to report early pain and ask [...] per policy 9. Teach patient or legal registration representative interventions for comforting Outcome: Progressing Note: [...] at the bedside 7. Instruct patient/ patient registration representative about use of safety devices 8. Include patient/ patient registration representative in decisions related to safety Outcome: [...] hygiene technique 7. Identify and instruct patient/patient registration representative in use of appropriate isolation precautionsfor identified infection/symptoms 8. Provide and discuss with patient/patient registration representative on educational MDRO sheet 9. Encourage and monitor nutritional status daily and consult marketing traffic coordinator if indicated 10. Implement neutropenic guidelines as needed 11. Review exposure to history of communicable disease and recent travel history on admission 12. Encourage annual influenza vaccine 13. Encourage pneumonia vaccine Outcome: Progressing Note: Evaluation of progress towards goal: pt continues with intermittent fevers. Prn meds available. Problem: Knowledge Deficit Goal: Patient/patient registration representative demonstrates understanding of disease process, treatment [...] pulse, rapid breathing, crackles heard in lung clrak, edema, decreased urine output, sudden weight gain, [...] hydration as ordered 5. Instruct patient/ legal registration representative on nutrition/diet; fluid/hydration restrictions as appropriate Outcome: Progressing Note: Evaluation of progress towards goal: monitoring pt's labs and electrolytes. Replacing when needed. * Plan of Care - Claudia Masterson LPN - 12/05/2023 1:17 PM EDT Problem: Low Risk Fall Score Description: Pickens Fall Score of 0 - 24 or indicated by [facility] Assessment Goal: Patient should be free from fall Description: Interventions: 1. Newcomb to environment 2. Hourly rounds addressing the [...] non-skid footwear 11. Teach patient and patient registration representative to maintain environment for safety and engage in all aspects of fall prevention program Outcome: Progressing Note: Evaluation of progress towards goal: pt free from falls at this time. Problem: Pain Goal: Patient goal is pain score less than 4, able to rest, and participant in treatment plan as appropriate Description: INTERVENTIONS: 1. Encourage patient or legal registration representative to report early pain and ask [...] per policy 9. Teach patient or legal registration representative interventions for comforting Outcome: Progressing Note: [...] at the bedside 7. Instruct patient/ patient registration representative about use of safety devices 8. Include patient/ patient registration representative in decisions related to safety Outcome: [...] hygiene technique 7. Identify and instruct patient/patient registration representative in use of appropriate isolation precautionsfor identified infection/symptoms 8. Provide and discuss with patient/patient registration representative on educational MDRO sheet 9. Encourage and monitor nutritional status daily and consult marketing traffic coordinator if indicated 10. Implement neutropenic guidelines as needed 11. Review exposure to history of communicable disease and recent travel history on admission 12. Encourage annual influenza vaccine 13. Encourage pneumonia vaccine Outcome: Progressing Note: Evaluation of progress towards goal: pt continues to have intermittent fevers at this time. Problem: Knowledge Deficit Goal: Patient/patient registration representative demonstrates understanding of disease process, treatment [...] Collaborate with ancillary departments 14. Include patient/patient registration representative in decisions related to anxiety Outcome: [...] providing care 6. Collaborate with pastoral/spiritual care, clinical social work therapist, mental health counselor as needed. 7. Instruct patient on diversional activities such as physical activity, distraction, and deep breathing exercises to assist with coping 8. Involve patient's registration representative in care Outcome: Progressing Note: Evaluation [...] hydration as ordered 5. Instruct patient/ legal registration representative on nutrition/diet; fluid/hydration restrictions as appropriate Outcome: Progressing Note: Evaluation of progress towards goal: electrolytes replaced per scale at this time. * Plan of Care - Skye Mary RN - 12/05/2023 2:02 AM EDT Problem: Low Risk Fall Score Description: Pickens Fall Score of 0 - 24 or indicated by [facility] Assessment Goal: Patient should be free from fall Description: Interventions: 1. Newcomb to environment 2. Hourly rounds addressing the [...] non-skid footwear 11. Teach patient and patient registration representative to maintain environment for safety and engage in all aspects of fall prevention program Outcome: Progressing Note: Evaluation of progress towards goal: pt remains free from falls. Pt independent in room. Problem: Pain Goal: Patient goal is pain score less than 4, able to rest, and participant in treatment plan as appropriate Description: INTERVENTIONS: 1. Encourage patient or legal registration representative to report early pain and ask [...] per policy 9. Teach patient or legal registration representative interventions for comforting Outcome: Progressing Note: [...] at the bedside 7. Instruct patient/ patient registration representative about use of safety devices 8. Include patient/ patient registration representative in decisions related to safety Outcome: [...] hygiene technique 7. Identify and instruct patient/patient registration representative in use of appropriate isolation precautionsfor identified infection/symptoms 8. Provide and discuss with patient/patient registration representative on educational MDRO sheet 9. Encourage and monitor nutritional status daily and consult marketing traffic coordinator if indicated 10. Implement neutropenic guidelines as needed 11. Review exposure to history of communicable disease and recent travel history on admission 12. Encourage annual influenza vaccine 13. Encourage pneumonia vaccine Outcome: Progressing Note: Evaluation of progress towards goal: monitoring pt for s/s of infection. Hand hygiene performed. Problem: Knowledge Deficit Goal: Patient/patient registration representative demonstrates understanding of disease process, treatment [...] Collaborate with ancillary departments 14. Include patient/patient registration representative in decisions related to anxiety Outcome: [...] providing care 6. Collaborate with pastoral/spiritual care, clinical social work therapist, mental health counselor as needed. 7. Instruct patient on diversional activities such as physical activity, distraction, and deep breathing exercises to assist with coping 8. Involve patient's registration representative in care Outcome: Progressing Note: Evaluation [...] hydration as ordered 5. Instruct patient/ legal registration representative on nutrition/diet; fluid/hydration restrictions as appropriate Outcome: Progressing Note: Evaluation of progress towards goal: monitoring pt's labs and electrolytes. Replacing when needed. * Plan of Care - Claudia Masterson, MAILS SUPERVISOR - 12/04/2023 3:30 PM EDT Problem: Low Risk Fall Score Description: Pickens Fall Score of 0 - 24 or indicated by [facility] Assessment Goal: Patient should be free from fall Description: Interventions: 1. Newcomb to environment 2. Hourly rounds addressing the [...] non-skid footwear 11. Teach patient and patient registration representative to maintain environment for safety and engage in all aspects of fall prevention program Outcome: Progressing Note: Evaluation of progress towards goal: fall precautions in place no falls at this time. Problem: Pain Goal: Patient goal is pain score less than 4, able to rest, and participant in treatment plan as appropriate Description: INTERVENTIONS: 1. Encourage patient or legal registration representative to report early pain and ask [...] per policy 9. Teach patient or legal registration representative interventions for comforting Outcome: Progressing Note: [...] at the bedside 7. Instruct patient/ patient registration representative about use of safety devices 8. Include patient/ patient registration representative in decisions related to safety Outcome: [...] hygiene technique 7. Identify and instruct patient/patient registration representative in use of appropriate isolation precautionsfor identified infection/symptoms 8. Provide and discuss with patient/patient registration representative on educational MDRO sheet 9. Encourage and monitor nutritional status daily and consult marketing traffic coordinator if indicated 10. Implement neutropenic guidelines as needed 11. Review exposure to history of communicable disease and recent travel history on admission 12. Encourage annual influenza vaccine 13. Encourage pneumonia vaccine Outcome: Progressing Note: Evaluation of progress towards goal: pt remains afebrile at this time. Problem: Knowledge Deficit Goal: Patient/patient registration representative demonstrates understanding of disease process, treatment [...] Collaborate with ancillary departments 14. Include patient/patient registration representative in decisions related to anxiety Outcome: [...] providing care 6. Collaborate with pastoral/spiritual care, clinical social work therapist, mental health counselor as needed. 7. Instruct patient on diversional activities such as physical activity, distraction, and deep breathing exercises to assist with coping 8. Involve patient's registration representative in care Outcome: Progressing Note: Evaluation [...] hydration as ordered 5. Instruct patient/ legal registration representative on nutrition/diet; fluid/hydration restrictions as appropriate [...] of 0 - 24 or indicated by [facility] Assessment Goal: Patient should be free from fall Description: Interventions: 1. Newcomb to environment 2. Hourly rounds addressing the [...] non-skid footwear 11. Teach patient and patient registration representative to maintain environment for safety and engage in all aspects of fall prevention program Outcome: Progressing Note: Evaluation of progress towards goal: pt remains free from falls. Pt independent in room. Problem: Pain Goal: Patient goal is pain score less than 4, able to rest, and participant in treatment plan as appropriate Description: INTERVENTIONS: 1. Encourage patient or legal registration representative to report early pain and ask [...] per policy 9. Teach patient or legal registration representative interventions for comforting Outcome: Progressing Note: [...] at the bedside 7. Instruct patient/ patient registration representative about use of safety devices 8. Include patient/ patient registration representative in decisions related to safety Outcome: [...] hygiene technique 7. Identify and instruct patient/patient registration representative in use of appropriate isolation precautionsfor identified infection/symptoms 8. Provide and discuss with patient/patient registration representative on educational MDRO sheet 9. Encourage and monitor nutritional status daily and consult marketing traffic coordinator if indicated 10. Implement neutropenic guidelines as needed 11. Review exposure to history of communicable disease and recent travel history on admission 12. Encourage annual influenza vaccine 13. Encourage pneumonia vaccine Outcome: Progressing Note: Evaluation of progress towards goal: pt remains afebrile. Hand hygiene performed. Problem: Knowledge Deficit Goal: Patient/patient registration representative demonstrates understanding of disease process, treatment [...] hydration as ordered 5. Instruct patient/ legal registration representative on nutrition/diet; fluid/hydration restrictions as appropriate Outcome: Progressing Note: Evaluation of progress towards goal: monitoring pt's labs and electrolytes. Replacing when needed. * Plan of Care - Claudia MontañoSHARAD vail - 12/03/2023 5:13 PM EDT Problem: Low Risk Fall Score Description: Pickens Fall Score of 0 - 24 or indicated by [facility] Assessment Goal: Patient should be free from fall Description: Interventions: 1. Newcomb to environment 2. Hourly rounds addressing the [...] non-skid footwear 11. Teach patient and patient registration representative to maintain environment for safety and engage in all aspects of fall prevention program Outcome: Progressing Note: Evaluation of progress towards goal: fall precautions in place, pt remains free from falls atthis time. Problem: Pain Goal: Patient goal is pain score less than 4, able to rest, and participant in treatment plan as appropriate Description: INTERVENTIONS: 1. Encourage patient or legal registration representative to report early pain and ask [...] per policy 9. Teach patient or legal registration representative interventions for comforting Outcome: Progressing Note: [...] at the bedside 7. Instruct patient/ patient registration representative about use of safety devices 8. Include patient/ patient registration representative in decisions related to safety Outcome: [...] hygiene technique 7. Identify and instruct patient/patient registration representative in use of appropriate isolation precautionsfor identified infection/symptoms 8. Provide and discuss with patient/patient registration representative on educational MDRO sheet 9. Encourage and monitor nutritional status daily and consult marketing traffic coordinator if indicated 10. Implement neutropenic guidelines as needed 11. Review exposure to history of communicable disease and recent travel history on admission 12. Encourage annual influenza vaccine 13. Encourage pneumonia vaccine Outcome: Progressing Note: Evaluation of progress towards goal: pt remains afebrile at this time. Problem: Knowledge Deficit Goal: Patient/patient registration representative demonstrates understanding of disease process, treatment [...] Collaborate with ancillary departments 14. Include patient/patient registration representative in decisions related to anxiety Outcome: [...] providing care 6. Collaborate with pastoral/spiritual care, clinical social work therapist, mental health counselor as needed. 7. Instruct patient on diversional activities such as physical activity, distraction, and deep breathing exercises to assist with coping 8. Involve patient's registration representative in care Outcome: Progressing Note: Evaluation [...] hydration as ordered 5. Instruct patient/ legal registration representative on nutrition/diet; fluid/hydration restrictions as appropriate Outcome: Progressing Note: Evaluation of progress towards goal: electrolytes continue to need replacement at this time. * Discharge Planning Note - Heike Anderson - 12/03/2023 9:59 AM EDT DISCHARGE PLANNING NOTE Referral to [facility] [employer]- [place], [place] [facility] - (P# ; F# ) * Discharge Planning Note - Mariah Starr RN - 12/03/2023 9:16 AM EDT DISCHARGE PLANNING NOTE Dental Assisting Instructor met with patient and at bedside, introduced self, and explained role. Patient educated on safe discharge plan. Pt admitted 12/02/2023 with [facility] (acute kidney injury) ([facility]) [N17.9] per chart review. Patient lives with [...] - Vanco/Ertapenum at home thru [facility] with [facility] drawing labs three days a week and weekly port dressing changes. Patient denies need for transportation/ food/ prescription medication assistance resources. PCP: RICHIE HANNA APRN-APPARATUS ENGINEERING TECHNOLOGIST Pharmacy:[facility] in [place] PCP and pharmacy confirmed with patient. CN offered to assist with follow up appointment arrangements, patient declined need. Current discharge plan is: home with IV antibiotics Task sent to [facility] to send referral to [facility]. Will continue to follow as plan of care develops. CN discussed benefits and importance of medication compliance and follow ups. - MARIAH STARR RN 12/03/23 9:16 AM * Plan of Care - Shanice Hogan RN - 12/03/2023 1:08 AM EDT Problem: Low Risk Fall Score Description: Pickens Fall Score of 0 - 24 or indicated by [facility] Assessment Goal: Patient should be free from fall Description: Interventions: 1. Newcomb to environment 2. Hourly rounds addressing the [...] non-skid footwear 11. Teach patient and patient registration representative to maintain environment for safety and [...] Description: INTERVENTIONS: 1. Encourage patient or legal registration representative to report early pain and ask [...] per policy 9. Teach patient or legal registration representative interventions for comforting Outcome: Progressing Note: [...] at the bedside 7. Instruct patient/ patient registration representative about use of safety devices 8. Include patient/ patient registration representative in decisions related to safety Outcome: [...] hygiene technique 7. Identify and instruct patient/patient registration representative in use of appropriate isolation precautionsfor identified infection/symptoms 8. Provide and discuss with patient/patient registration representative on educational MDRO sheet 9. Encourage and monitor nutritional status daily and consult marketing traffic coordinator if indicated 10. Implement neutropenic guidelines as needed 11. Review exposure to history of communicable disease and recent travel history on admission 12. Encourage annual influenza vaccine 13. Encourage pneumonia vaccine Outcome: Progressing Note: Evaluation of progress towards goal: Afebrile, labs and VS monitored Problem: Knowledge Deficit Goal: Patient/patient registration representative demonstrates understanding of disease process, treatment [...] Collaborate with ancillary departments 14. Include patient/patient registration representative in decisions related to anxiety Outcome: [...] providing care 6. Collaborate with pastoral/spiritual care, clinical social work therapist, mental health counselor as needed. 7. Instruct patient on diversional activities such as physical activity, distraction, and deep breathing exercises to assist with coping 8. Involve patient's registration representative in care Outcome: Progressing Note: Evaluation [...] hydration as ordered 5. Instruct patient/ legal registration representative on nutrition/diet; fluid/hydration restrictions as appropriate Outcome: Progressing Note: Evaluation of progress towards goal: Display of normal lab values. Electrolytes are replaced as needed. documented in [facility]Van [facility] Hospital course Narrative* Amy Singh MD - 12/09/2023 2:48 PM EDT Images from the original note were not included. [facility] INTERNAL MEDICINE [facility] DIV[facility] [place] [address] ONCOLOGY/STROKE [address] [facility] [id number] Hospital Medicine Discharge Summary Patient: Ike Flannery Date of : 1970 Room: [facility] Encounter date: 12/09/23 DATE OF ADMISSION: 12/02/2023 DATE OF DISCHARGE:12/09/2023 DISCHARGE DIAGNOSES # Acute kidney injury, ATN, multifactorial in the setting of decreased p.o. 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 Lui for residential management -has appointment January 13 Check labs WBC, platelets, creatinine, LFTs weekly while on antibiotics. follow up with primary rigger up Dr. Clint Bazan. follow-up with nephrology in [...] 14 tentatively. She will follow up with [facility] ID Dr. Lui on 01/13/ Patient's kidney [...] or collecting system dilatation. Finalized by Jesus Singh MD on 12/04/2023 9:23 AM Discharge Medications: [...] Medications These medications were sent to [facility], [address] [address] ciprofloxacin HCl 500 mg tablet clarithromycin 500 mg tablet cyanocobalamin 1000 MCG tablet linezolid 600 mg tablet You can get these medications from any pharmacy Bring a paper prescription for each of these medications imipenem-cilastatin 500 mg in sodium chloride 0.9 % 100 mL IVPB MINI-BAG Plus >30 minutes were spent on discharging this patient. Amy Singh MD 12/09/2023 2:48 PM [facility] Internal Medicine 7AM-7PM (all facilities): EpicChat or page through Vocera. 7PM-7AM ([facility], [facility]): EpicChat or page, [phone]. 7PM-7AM ([place], [place], [place], [place] and [facility]): EpicChat or page through Vocera. documented in this encounterVan [facility]10-09-[facility] Hospital Discharge instructions* Discharge Instructions* Amy Singh MD - 12/09/2023 2:42 PM EDT take ciprofloxacin for 2 week course of treatment until December 15 and then Zyvox from December 16 to December 29, clarithromycin until January 14 tentatively, and imipenem until January 14tentatively Ambulatory referral placed for [facility] ID Dr. Lui for residential management -has appointment January 13 Check labs WBC, platelets, creatinine, LFTs weekly while on antibiotics. follow up with primary rigger up Dr. Clint Bazan. follow-up with nephrology in [...] have any other complaints. * Appointments* Heike Justin - 12/09/2023 10:36 AM EDT YOUR SCHEDULED APPOINTMENTS Please make note of this in your schedule as to not miss or call to reschedule. Thank you! HERMAN LUI, [facility] [address] [facility] [address] [facility] Infectious Disease [facility] [id number] Go on 01/14/2024 at 2 PM Pt. [...] For NEW patients, MD will not prescribe residential pain medication. * Attachments The following attachments cannot be sent through Care Everywhere. * Acute kidney injury ([place]) * How to Prevent Surgical Site Infections ([place]) documented in this encounterVan [facility]10-09-[facility]24 Plan of care note * Plan of Care - Aliza Benito RN - 12/09/2023 4:18 AM EDT Problem: Low Risk Fall Score Description: Pickens Fall Score of 0 - 24 or indicated by [facility] Assessment Goal: Patient should be free from fall Description: Interventions: 1. Newcomb to environment 2. Hourly rounds addressing the [...] non-skid footwear 11. Teach patient and patient registration representative to maintain environment for safety and engage in all aspects of fall prevention program Outcome: Progressing Note: Evaluation of progress towards goal: Pt remains free from falls. Will continue to provide a safe environment. Problem: Pain Goal: Patient goal is pain score less than 4, able to rest, and participant in treatment plan as appropriate Description: INTERVENTIONS: 1. Encourage patient or legal registration representative to report early pain and ask [...] per policy 9. Teach patient or legal registration representative interventions for comforting Outcome: Progressing Note: [...] at the bedside 7. Instruct patient/ patient registration representative about use of safety devices 8. Include patient/ patient registration representative in decisions related to safety Outcome: [...] hygiene technique 7. Identify and instruct patient/patient registration representative in use of appropriate isolation precautionsfor identified infection/symptoms 8. Provide and discuss with patient/patient registration representative on educational MDRO sheet 9. Encourage and monitor nutritional status daily and consult marketing traffic coordinator if indicated 10. Implement neutropenic guidelines as needed 11. Review exposure to history of communicable disease and recent travel history on admission 12. Encourage annual influenza vaccine 13. Encourage pneumonia vaccine Outcome: Progressing Note: Evaluation of progress towards goal: pt remains afebrile, currently on antibiotics Problem: Knowledge Deficit Goal: Patient/patient registration representative demonstrates understanding of disease process, treatment [...] Collaborate with ancillary departments 14. Include patient/patient registration representative in decisions related to anxiety Outcome: [...] providing care 6. Collaborate with pastoral/spiritual care, clinical social work therapist, mental health counselor as needed. 7. Instruct patient on diversional activities such as physical activity, distraction, and deep breathing exercises to assist with coping 8. Involve patient's registration representative in care Outcome: Progressing Note: Evaluation [...] pulse, rapid breathing, crackles heard in lung calrk, edema, decreased urine output, sudden weight gain, [...] hydration as ordered 5. Instruct patient/ legal registration representative on nutrition/diet; fluid/hydration restrictions as appropriate Outcome: Progressing Note: Evaluation of progress towards goal: electrolytes are continuing to be monitored and replacedper protocol [facility]10-08-2024 Plan of care note* Plan of Care - Claudia MastersonSHARAD - 12/08/2023 3:27 PM EDT Problem: Low Risk Fall Score Description: Pickens Fall Score of 0 - 24 or indicated by [facility] Assessment Goal: Patient should be free from fall Description: Interventions: 1. Newcomb to environment 2. Hourly rounds addressing the [...] non-skid footwear 11. Teach patient and patient registration representative to maintain environment for safety and engage in all aspects of fall prevention program Outcome: Progressing Note: Evaluation of progress towards goal: pt remains free from falls at this time. Problem: Pain Goal: Patient goal is pain score less than 4, able to rest, and participant in treatment plan as appropriate Description: INTERVENTIONS: 1. Encourage patient or legal registration representative to report early pain and ask [...] per policy 9. Teach patient or legal registration representative interventions for comforting Outcome: Progressing Note: [...] at the bedside 7. Instruct patient/ patient registration representative about use of safety devices 8. Include patient/ patient registration representative in decisions related to safety Outcome: [...] hygiene technique 7. Identify and instruct patient/patient registration representative in use of appropriate isolation precautionsfor identified infection/symptoms 8. Provide and discuss with patient/patient registration representative on educational MDRO sheet 9. Encourage and monitor nutritional status daily and consult marketing traffic coordinator if indicated 10. Implement neutropenic guidelines as needed 11. Review exposure to history of communicable disease and recent travel history on admission 12. Encourage annual influenza vaccine 13. Encourage pneumonia vaccine Outcome: Progressing Note: Evaluation of progress towards goal: pt remains afebrile at this time. Problem: Knowledge Deficit Goal: Patient/patient registration representative demonstrates understanding of disease process, treatment [...] Collaborate with ancillary departments 14. Include patient/patient registration representative in decisions related to anxiety Outcome: [...] providing care 6. Collaborate with pastoral/spiritual care, clinical social work therapist, mental health counselor as needed. 7. Instruct patient on diversional activities such as physical activity, distraction, and deep breathing exercises to assist with coping 8. Involve patient's registration representative in care Outcome: Progressing Note: Evaluation [...] hydration as ordered 5. Instruct patient/ legal registration representative on nutrition/diet; fluid/hydration restrictions as appropriate Outcome: Progressing Note: Evaluation of progress towards goal: electrolytes replaced within normal limits at this time. [facility] [employer] [id number] Progress note* Discharge Planning Note - Mariah Starr RN - 12/08/2023 3:23 PM EDT DISCHARGE PLANNING NOTE Patient discussed in DTRs. Barrier to discharge is ID plan. 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 Task sent to [facility] to get appointment set up. Plan is for [facility] to be [facility] - MARIAH STARR RN 12/08/23 3:26 PM Primaxin IV is 100% covered. Script and prior auth sent to [facility]. Medication will be delivered to the patient's home between 5-9pm. Spoke with Skye at [facility] and they have the standing order for weekly labs and weekly dressing change. Patient updated and agreeable with plan to discharge home this afternoon. Patient has appointment set for 01/14/[address] Herman Lui. - MARIAH STARR RN 12/09/23 2:19 PM [facility] 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 Newcomb to environment 2. Hourly rounds addressing the [...] non-skid footwear 11. Teach patient and patient registration representative to maintain environment for safety and engage in all aspects of fall prevention program Outcome: Progressing Note: Evaluation of progress towards goal: Pt remains free from falls. Will continue to provide a safe environment. Problem: Pain Goal: Patient goal is pain score less than 4, able to rest, and participant in treatment plan as appropriate Description: INTERVENTIONS: 1. Encourage patient or legal registration representative to report early pain and ask [...] per policy 9. Teach patient or legal registration representative interventions for comforting Outcome: Progressing Note: [...] at the bedside 7. Instruct patient/ patient registration representative about use of safety devices 8. Include patient/ patient registration representative in decisions related to safety Outcome: [...] hygiene technique 7. Identify and instruct patient/patient registration representative in use of appropriate isolation precautionsfor identified infection/symptoms 8. Provide and discuss with patient/patient registration representative on educational MDRO sheet 9. Encourage and monitor nutritional status daily and consult marketing traffic coordinator if indicated 10. Implement neutropenic guidelines as needed 11. Review exposure to history of communicable disease and recent travel history on admission 12. Encourage annual influenza vaccine 13. Encourage pneumonia vaccine Outcome: Progressing Note: Evaluation of progress towards goal: pt remains afebrile at this time, antibiotics are administered as ordered Problem: Knowledge Deficit Goal: Patient/patient registration representative demonstrates understanding of disease process, treatment [...] Collaborate with ancillary departments 14. Include patient/patient registration representative in decisions related to anxiety Outcome: [...] providing care 6. Collaborate with pastoral/spiritual care, clinical social work therapist, mental health counselor as needed. 7. Instruct patient on diversional activities such as physical activity, distraction, and deep breathing exercises to assist with coping 8. Involve patient's registration representative in care Outcome: Progressing Note: Evaluation [...] hydration as ordered 5. Instruct patient/ legal registration representative on nutrition/diet; fluid/hydration restrictions as appropriate Outcome: Progressing Note: Evaluation of progress towards goal: electrolytes are monitored and replaced per orders [id number] Progress note* Discharge Planning Note - Mariah [...] - MARIAH STARR RN 12/07/23 12:06 PM [employer] [id number] Plan of care note* Plan of Care - Corrina Richardson RN - 12/07/2023 10:30 AM EDT Problem: Pain Goal: Patient goal is pain score less than 4, able to rest, and participant in treatment plan as appropriate Description: INTERVENTIONS: 1. Encourage patient or legal registration representative to report early pain and ask [...] per policy 9. Teach patient or legal registration representative interventions for comforting Outcome: Progressing Note: [...] at the bedside 7. Instruct patient/ patient registration representative about use of safety devices 8. Include patient/ patient registration representative in decisions related to safety Outcome: [...] hygiene technique 7. Identify and instruct patient/patient registration representative in use of appropriate isolation precautionsfor identified infection/symptoms 8. Provide and discuss with patient/patient registration representative on educational MDRO sheet 9. Encourage and monitor nutritional status daily and consult marketing traffic coordinator if indicated 10. Implement neutropenic guidelines as needed 11. Review exposure to history of communicable disease and recent travel history on admission 12. Encourage annual influenza vaccine 13. Encourage pneumonia vaccine Outcome: Progressing Note: Evaluation of progress towards goal: pt afebrile. WBC 2.7 Problem: Knowledge Deficit Goal: Patient/patient registration representative demonstrates understanding of disease process, treatment [...] of progress towards goal: d/c plans pending [facility] [employer] [id number] Plan of care note* Plan of Care - Aliza Benito RN - 12/07/2023 5:19 AM EDT Problem: Low Risk Fall Score Description: Pickens Fall Score of 0 - 24 or indicated by [facility] Assessment Goal: Patient should be free from fall Description: Interventions: 1. Newcomb to environment 2. Hourly rounds addressing the [...] non-skid footwear 11. Teach patient and patient registration representative to maintain environment for safety and engage in all aspects of fall prevention program Outcome: Progressing Note: Evaluation of progress towards goal: Pt remains free from falls. Will continue to provide a safe environment. Problem: Pain Goal: Patient goal is pain score less than 4, able to rest, and participant in treatment plan as appropriate Description: INTERVENTIONS: 1. Encourage patient or legal registration representative to report early pain and ask [...] per policy 9. Teach patient or legal registration representative interventions for comforting Outcome: Progressing Note: [...] at the bedside 7. Instruct patient/ patient registration representative about use of safety devices 8. Include patient/ patient registration representative in decisions related to safety Outcome: [...] hygiene technique 7. Identify and instruct patient/patient registration representative in use of appropriate isolation precautionsfor identified infection/symptoms 8. Provide and discuss with patient/patient registration representative on educational MDRO sheet 9. Encourage and monitor nutritional status daily and consult marketing traffic coordinator if indicated 10. Implement neutropenic guidelines as needed 11. Review exposure to history of communicable disease and recent travel history on admission 12. Encourage annual influenza vaccine 13. Encourage pneumonia vaccine Outcome: Progressing Note: Evaluation of progress towards goal: patient remains on antibiotics at this time, monitoring for s/s of infection Problem: Knowledge Deficit Goal: Patient/patient registration representative demonstrates understanding of disease process, treatment [...] Collaborate with ancillary departments 14. Include patient/patient registration representative in decisions related to anxiety Outcome: [...] providing care 6. Collaborate with pastoral/spiritual care, clinical social work therapist, mental health counselor as needed. 7. Instruct patient on diversional activities such as physical activity, distraction, and deep breathing exercises to assist with coping 8. Involve patient's registration representative in care Outcome: Progressing Note: Evaluation [...] hydration as ordered 5. Instruct patient/ legal registration representative on nutrition/diet; fluid/hydration restrictions as appropriate Outcome: Progressing Note: Evaluation of progress towards goal: electrolytes are within range at this time [facility]10-06-2024 Plan of care note* Plan of Care - Corrina Richardson RN - 12/06/2023 9:51 AM EDT Problem: Pain Goal: Patient goal is pain score less than 4, able to rest, and participant in treatment plan as appropriate Description: INTERVENTIONS: 1. Encourage patient or legal registration representative to report early pain and ask [...] per policy 9. Teach patient or legal registration representative interventions for comforting Outcome: Progressing Note: [...] at the bedside 7. Instruct patient/ patient registration representative about use of safety devices 8. Include patient/ patient registration representative in decisions related to safety Outcome: [...] hygiene technique 7. Identify and instruct patient/patient registration representative in use of appropriate isolation precautionsfor identified infection/symptoms 8. Provide and discuss with patient/patient registration representative on educational MDRO sheet 9. Encourage and monitor nutritional status daily and consult marketing traffic coordinator if indicated 10. Implement neutropenic guidelines as needed 11. Review exposure to history of communicable disease and recent travel history on admission 12. Encourage annual influenza vaccine 13. Encourage pneumonia vaccine Outcome: Progressing Note: Evaluation of progress towards goal: pt afebrile this AM. WBC 3.0 Positive Wound culture [employer] Problem: Knowledge Deficit Goal: Patient/patient registration representative demonstrates understanding of disease process, treatment [...] progress towards goal: awaiting referral for [facility]10-06-2024 Plan of care note* Plan of Care - Skye Mary RN - 12/06/2023 1:56 AM EDT Problem: Low Risk Fall Score Description: Pickens Fall Score of 0 - 24 or indicated by [facility] Assessment Goal: Patient should be free from fall Description: Interventions: 1. Newcomb to environment 2. Hourly rounds addressing the [...] non-skid footwear 11. Teach patient and patient registration representative to maintain environment for safety and engage in all aspects of fall prevention program Outcome: Progressing Note: Evaluation of progress towards goal: pt remains free from falls. Pt independent in room. Problem: Pain Goal: Patient goal is pain score less than 4, able to rest, and participant in treatment plan as appropriate Description: INTERVENTIONS: 1. Encourage patient or legal registration representative to report early pain and ask [...] per policy 9. Teach patient or legal registration representative interventions for comforting Outcome: Progressing Note: [...] at the bedside 7. Instruct patient/ patient registration representative about use of safety devices 8. Include patient/ patient registration representative in decisions related to safety Outcome: [...] hygiene technique 7. Identify and instruct patient/patient registration representative in use of appropriate isolation precautionsfor identified infection/symptoms 8. Provide and discuss with patient/patient registration representative on educational MDRO sheet 9. Encourage and monitor nutritional status daily and consult marketing traffic coordinator if indicated 10. Implement neutropenic guidelines as needed 11. Review exposure to history of communicable disease and recent travel history on admission 12. Encourage annual influenza vaccine 13. Encourage pneumonia vaccine Outcome: Progressing Note: Evaluation of progress towards goal: pt continues with intermittent fevers. Prn meds available. Problem: Knowledge Deficit Goal: Patient/patient registration representative demonstrates understanding of disease process, treatment [...] hydration as ordered 5. Instruct patient/ legal registration representative on nutrition/diet; fluid/hydration restrictions as appropriate Outcome: Progressing Note: Evaluation of progress towards goal: monitoring pt's labs and electrolytes. Replacing when needed. [facility] [employer] [id number] Plan of care note* Plan of Care - Claudia Masterson LPN - 12/05/2023 1:17 PM EDT Problem: Low Risk Fall Score Description: Pickens Fall Score of 0 - 24 or indicated by [facility] Assessment Goal: Patient should be free from fall Description: Interventions: 1. Newcomb to environment 2. Hourly rounds addressing the [...] non-skid footwear 11. Teach patient and patient registration representative to maintain environment for safety and engage in all aspects of fall prevention program Outcome: Progressing Note: Evaluation of progress towards goal: pt free from falls at this time. Problem: Pain Goal: Patient goal is pain score less than 4, able to rest, and participant in treatment plan as appropriate Description: INTERVENTIONS: 1. Encourage patient or legal registration representative to report early pain and ask [...] per policy 9. Teach patient or legal registration representative interventions for comforting Outcome: Progressing Note: [...] at the bedside 7. Instruct patient/ patient registration representative about use of safety devices 8. Include patient/ patient registration representative in decisions related to safety Outcome: [...] hygiene technique 7. Identify and instruct patient/patient registration representative in use of appropriate isolation precautionsfor identified infection/symptoms 8. Provide and discuss with patient/patient registration representative on educational MDRO sheet 9. Encourage and monitor nutritional status daily and consult marketing traffic coordinator if indicated 10. Implement neutropenic guidelines as needed 11. Review exposure to history of communicable disease and recent travel history on admission 12. Encourage annual influenza vaccine 13. Encourage pneumonia vaccine Outcome: Progressing Note: Evaluation of progress towards goal: pt continues to have intermittent fevers at this time. Problem: Knowledge Deficit Goal: Patient/patient registration representative demonstrates understanding of disease process, treatment [...] Collaborate with ancillary departments 14. Include patient/patient registration representative in decisions related to anxiety Outcome: [...] providing care 6. Collaborate with pastoral/spiritual care, clinical social work therapist, mental health counselor as needed. 7. Instruct patient on diversional activities such as physical activity, distraction, and deep breathing exercises to assist with coping 8. Involve patient's registration representative in care Outcome: Progressing Note: Evaluation [...] hydration as ordered 5. Instruct patient/ legal registration representative on nutrition/diet; fluid/hydration restrictions as appropriate Outcome: Progressing Note: Evaluation of progress towards goal: electrolytes replaced per scale at this time. [employer]10-05-2024 Plan of care note* Plan of Care - Skye Mary RN - 12/05/2023 2:02 AM EDT Problem: Low Risk Fall Score Description: Pickens Fall Score of 0 - 24 or indicated by [facility] Assessment Goal: Patient should be free from fall Description: Interventions: 1. Newcomb to environment 2. Hourly rounds addressing the [...] non-skid footwear 11. Teach patient and patient registration representative to maintain environment for safety and engage in all aspects of fall prevention program Outcome: Progressing Note: Evaluation of progress towards goal: pt remains free from falls. Pt independent in room. Problem: Pain Goal: Patient goal is pain score less than 4, able to rest, and participant in treatment plan as appropriate Description: INTERVENTIONS: 1. Encourage patient or legal registration representative to report early pain and ask [...] per policy 9. Teach patient or legal registration representative interventions for comforting Outcome: Progressing Note: [...] at the bedside 7. Instruct patient/ patient registration representative about use of safety devices 8. Include patient/ patient registration representative in decisions related to safety Outcome: [...] hygiene technique 7. Identify and instruct patient/patient registration representative in use of appropriate isolation precautionsfor identified infection/symptoms 8. Provide and discuss with patient/patient registration representative on educational MDRO sheet 9. Encourage and monitor nutritional status daily and consult marketing traffic coordinator if indicated 10. Implement neutropenic guidelines as needed 11. Review exposure to history of communicable disease and recent travel history on admission 12. Encourage annual influenza vaccine 13. Encourage pneumonia vaccine Outcome: Progressing Note: Evaluation of progress towards goal: monitoring pt for s/s of infection. Hand hygiene performed. Problem: Knowledge Deficit Goal: Patient/patient registration representative demonstrates understanding of disease process, treatment [...] Collaborate with ancillary departments 14. Include patient/patient registration representative in decisions related to anxiety Outcome: [...] providing care 6. Collaborate with pastoral/spiritual care, clinical social work therapist, mental health counselor as needed. 7. Instruct patient on diversional activities such as physical activity, distraction, and deep breathing exercises to assist with coping 8. Involve patient's registration representative in care Outcome: Progressing Note: Evaluation [...] hydration as ordered 5. Instruct patient/ legal registration representative on nutrition/diet; fluid/hydration restrictions as appropriate Outcome: Progressing Note: Evaluation of progress towards goal: monitoring pt's labs and electrolytes. Replacing when needed. [employer] [id number] Plan of care note* Plan of Care - Claudia Masterson LPN - 12/04/2023 3:30 PM EDT Problem: Low Risk Fall Score Description: Pickens Fall Score of 0 - 24 or indicated by [facility] Assessment Goal: Patient should be free from fall Description: Interventions: 1. Newcomb to environment 2. Hourly rounds addressing the [...] non-skid footwear 11. Teach patient and patient registration representative to maintain environment for safety and engage in all aspects of fall prevention program Outcome: Progressing Note: Evaluation of progress towards goal: fall precautions in place no falls at this time. Problem: Pain Goal: Patient goal is pain score less than 4, able to rest, and participant in treatment plan as appropriate Description: INTERVENTIONS: 1. Encourage patient or legal registration representative to report early pain and ask [...] per policy 9. Teach patient or legal registration representative interventions for comforting Outcome: Progressing Note: [...] at the bedside 7. Instruct patient/ patient registration representative about use of safety devices 8. Include patient/ patient registration representative in decisions related to safety Outcome: [...] hygiene technique 7. Identify and instruct patient/patient registration representative in use of appropriate isolation precautionsfor identified infection/symptoms 8. Provide and discuss with patient/patient registration representative on educational MDRO sheet 9. Encourage and monitor nutritional status daily and consult marketing traffic coordinator if indicated 10. Implement neutropenic guidelines as needed 11. Review exposure to history of communicable disease and recent travel history on admission 12. Encourage annual influenza vaccine 13. Encourage pneumonia vaccine Outcome: Progressing Note: Evaluation of progress towards goal: pt remains afebrile at this time. Problem: Knowledge Deficit Goal: Patient/patient registration representative demonstrates understanding of disease process, treatment [...] Collaborate with ancillary departments 14. Include patient/patient registration representative in decisions related to anxiety Outcome: [...] providing care 6. Collaborate with pastoral/spiritual care, clinical social work therapist, mental health counselor as needed. 7. Instruct patient on diversional activities such as physical activity, distraction, and deep breathing exercises to assist with coping 8. Involve patient's registration representative in care Outcome: Progressing Note: Evaluation [...] hydration as ordered 5. Instruct patient/ legal registration representative on nutrition/diet; fluid/hydration restrictions as appropriate Outcome: Progressing Note: Evaluation of progress towards goal: electrolytes within normal limits at this time. [facility] [employer] [id number] Progress note* Discharge Planning Note - Mariah [...] - MARIAH STARR RN 12/04/23 1:08 PM [facility] [employer] [id number] Plan of care note* Plan of Care - Skye Mary RN - 12/04/2023 12:43 AM EDT Problem: Low Risk Fall Score Description: Pickens Fall Score of 0 - 24 or indicated by [facility] Assessment Goal: Patient should be free from fall Description: Interventions: 1. Newcomb to environment 2. Hourly rounds addressing the [...] non-skid footwear 11. Teach patient and patient registration representative to maintain environment for safety and engage in all aspects of fall prevention program Outcome: Progressing Note: Evaluation of progress towards goal: pt remains free from falls. Pt independent in room. Problem: Pain Goal: Patient goal is pain score less than 4, able to rest, and participant in treatment plan as appropriate Description: INTERVENTIONS: 1. Encourage patient or legal registration representative to report early pain and ask [...] per policy 9. Teach patient or legal registration representative interventions for comforting Outcome: Progressing Note: [...] at the bedside 7. Instruct patient/ patient registration representative about use of safety devices 8. Include patient/ patient registration representative in decisions related to safety Outcome: [...] hygiene technique 7. Identify and instruct patient/patient registration representative in use of appropriate isolation precautionsfor identified infection/symptoms 8. Provide and discuss with patient/patient registration representative on educational MDRO sheet 9. Encourage and monitor nutritional status daily and consult marketing traffic coordinator if indicated 10. Implement neutropenic guidelines as needed 11. Review exposure to history of communicable disease and recent travel history on admission 12. Encourage annual influenza vaccine 13. Encourage pneumonia vaccine Outcome: Progressing Note: Evaluation of progress towards goal: pt remains afebrile. Hand hygiene performed. Problem: Knowledge Deficit Goal: Patient/patient registration representative demonstrates understanding of disease process, treatment [...] hydration as ordered 5. Instruct patient/ legal registration representative on nutrition/diet; fluid/hydration restrictions as appropriate Outcome: Progressing Note: Evaluation of progress towards goal: monitoring pt's labs and electrolytes. Replacing when needed. [facility] [id number] Plan of care note* Plan of Care - Claudia Masterson LPN - 12/03/2023 5:13 PM EDT Problem: Low Risk Fall Score Description: Pickens Fall Score of 0 - 24 or indicated by [facility] Assessment Goal: Patient should be free from fall Description: Interventions: 1. Newcomb to environment 2. Hourly rounds addressing the [...] non-skid footwear 11. Teach patient and patient registration representative to maintain environment for safety and engage in all aspects of fall prevention program Outcome: Progressing Note: Evaluation of progress towards goal: fall precautions in place, pt remains free from falls atthis time. Problem: Pain Goal: Patient goal is pain score less than 4, able to rest, and participant in treatment plan as appropriate Description: INTERVENTIONS: 1. Encourage patient or legal registration representative to report early pain and ask [...] per policy 9. Teach patient or legal registration representative interventions for comforting Outcome: Progressing Note: [...] at the bedside 7. Instruct patient/ patient registration representative about use of safety devices 8. Include patient/ patient registration representative in decisions related to safety Outcome: [...] hygiene technique 7. Identify and instruct patient/patient registration representative in use of appropriate isolation precautionsfor identified infection/symptoms 8. Provide and discuss with patient/patient registration representative on educational MDRO sheet 9. Encourage and monitor nutritional status daily and consult marketing traffic coordinator if indicated 10. Implement neutropenic guidelines as needed 11. Review exposure to history of communicable disease and recent travel history on admission 12. Encourage annual influenza vaccine 13. Encourage pneumonia vaccine Outcome: Progressing Note: Evaluation of progress towards goal: pt remains afebrile at this time. Problem: Knowledge Deficit Goal: Patient/patient registration representative demonstrates understanding of disease process, treatment [...] Collaborate with ancillary departments 14. Include patient/patient registration representative in decisions related to anxiety Outcome: [...] providing care 6. Collaborate with pastoral/spiritual care, clinical social work therapist, mental health counselor as needed. 7. Instruct patient on diversional activities such as physical activity, distraction, and deep breathing exercises to assist with coping 8. Involve patient's registration representative in care Outcome: Progressing Note: Evaluation [...] hydration as ordered 5. Instruct patient/ legal registration representative on nutrition/diet; fluid/hydration restrictions as appropriate Outcome: Progressing Note: Evaluation of progress towards goal: electrolytes continue to need replacement at this time. [facility]10-03-2024 History of Present illness Narrative* AMEENA Vallejo - 12/03/2023 4:23 PM EDT Patient's insurance not accepted over [facility]. Referral sent to [facility] who reportedly cannotsee her until . Spoke with patient who requested a referral be sent to [facility]. AMEENA Vallejo 12/03/23 1629 [facility] Consult note* Shanon Joe MD - 12/03/2023 4:08 PM EDTAssociated Order(s): IP CONSULT TO CARDIOLOGY Reason for consult: Abnormal ECG History of present illness: The patient is a 53-year-old woman. She was admitted to [facility] December 03, 2023. She reports having fevers and feeling unwell. She has been undergoing treatmentfor breast cellulitis. She denies any chest discomfort or dyspnea. She has no palpitations. She normally follows with Dr. Clint Bazan of [facility] Allergies: Meperidine, daptomycin, adhesive Medications: [...] cell count 5.8, hemoglobin 8.0, platelet count [id number]. Sodium 137, potassium 3.1,chloride 104, bicarb 25, [...] patient will follow up with her primary rigger up Dr. Clint Bazan. [employer] Work Phone: [phone]) 752-627710-03-2024 Consult note* Shanon Joe MD - 12/03/2023 4:08 PM EDTAssociated Order(s): IP CONSULT TO CARDIOLOGY Reason for consult: Abnormal ECG History of present illness: The patient is a 53-year-old woman. [facility] She reports having fevers and feeling unwell. She has been undergoing treatmentfor breast cellulitis. She denies any chest discomfort or dyspnea. She has no palpitations. She normally follows with Dr. Clint Bazan of [facility] Allergies: Meperidine, daptomycin, adhesive Medications: [...] cell count 5.8, hemoglobin 8.0, platelet count [id number]. Sodium 137, potassium 3.1,chloride 104, bicarb 25, [...] patient will follow up with her primary rigger up Dr. Cilnt Bazan. * Carlene Noguera MD - 12/03/2023 2:03 PM EDTAssociated Order(s): IP CONSULT TO INFECTIOUS DISEASES Images from the original note were not included. [facility] - Initial Consult Note Ike Flannery Admit date/time 12/02/2023 9:55 PM Today's Date and Time: 12/03/2023, 2:03 PM Impression: Left breast cellulitis Postop infection of left breast tissue putty mixer-culture growing acid-fast bacilli Acute kidney injury History [...] care Ambulatory referrals to Infectious Disease at [facility], [facility], [facility] have been placed for F/U acid-fast bacilli. Patient was notified by [facility] that she can not use her insurance over [facility] line. We will send referral per patient request to [facility]. Reason for consultation: Infection on IV antibiotics, established patient Chief complaint Postop problem History of Present Illness: Ike Flannery is a 53 y.o.-year-old female who was initially admitted on 12/02/2023. Patient presents to hospital with complaints fever, chills, and vomiting. Patient was recently admitted and discharged from [facility] after removal of infected tissue putty mixer. She was discharged home on Vancomycin and Ertapenem to continue tentatively until December 08. Patient was seen at [facility] for lab draw. Last night, we were notified that creatinine was 2.56 and vanco trough 33. Patient also complaining nausea, fever, and chills and was advised to go to ER. Left breast cultures from previous admission are preliminarily growing acid-fast bacilli. Referralshave been made to [facility], and [facility] for management/treatment. Per patient, [facility] notified her today and stated they cannot accept her insurance. [facility] cannot see her until December or January. Will place referral to [facility] per patient request. Patient states she feels better today with no further nausea or vomiting.. WBC stable. Denies any cough or shortness of breath. Pain is stable I have personally reviewed the past medical history, past surgical history, medications, social history, and family history, and I have updated the database accordingly. Past Medical History: Past Medical History: Diagnosis Date Breast cancer ([facility]) 2023 mammary carcinoma Deep vein thrombosis ([facility]) 09/18/2023 Left calf Hypertension Knee pain PONV (postoperative nausea and vomiting) Port-A-Cath in place 05/13/2023 Visual impairment Glasses Past Surgical History: Past Surgical History: Procedure Laterality Date ARTHROSCOPIC REPAIR ACL Right 2006 ARTHROSCOPIC REPAIR ACL Left 08/26/2021 BREAST BIOPSY Right 2023 mammary carcinoma EXCISION LYMPH NODE AXILLARY DISSECTION Right 10/28/2023 Performed by Christy He MD at [facility] HYSTERECTOMY IMMEDIATE BREAST RECONSTRUCTION WITH TISSUE CARD MOUNTER PLACEMENT Bilateral 10/28/2023 Performed by Jhon Gross MD at [facility] INCISION DRAINAGE BREAST Left 11/27/2023 Performed by Jhon Gross MD at [facility] MAGNETIC SEED LOCALIZATION EXCISION/BIOPSY MASS BREAST (MAG SEED LOCALIZED TARGETED DISSECTION FOR RETRIEVAL OF PREVIOUSLY CLIPPED LYMPH NODE) Right 10/28/2023 Performed by Christy He MD at [facility] MASTECTOMY BREAST SIMPLE RISK REDUCING SKIN SPARING Left 10/28/2023 Performed by Christy He MD at [facility] MASTECTOMY BREAST SIMPLE SKIN SPARING Right 10/28/2023 Performed by Christy He MD at [facility] MENISCECTOMY Bilateral 2022 PORTACATH PLACEMENT Left left chest REMOVAL CARD MOUNTER TISSUE BREAST Left 11/27/2023 Performed by Jhon Gross MD at [facility] RIGHT AXILLARY PROPHYLACTIC BYPASS LYMPHOVENOUS Right 10/28/2023 Performed by Jhon Gross MD at [facility] TONSILLECTOMY AND ADENOIDECTOMY Age [...] 60 min Stress: Stress Concern Present (02/27/2022) [employer] [employer] - Occupational Stress Questionnaire Feeling of Stress : To some extent Social Connections: Socially Integrated (02/27/2022) Social Connection and Isolation Panel [NHANES] Frequency of Communication with Friends and Family: Twice a week Frequency of Social Gatherings with Friends and Family: Three times a week Attends Jehovah'S Witness Services: More than 4 times per year [...] Procedure Component Value Units Date/Time Urine culture [[id number]] Collected: 12/02/232340 Specimen: Urine Updated: 12/03/23828 Blood culture [[id number]] Collected: 12/02/232235 Specimen: Blood, Peripheral Draw Updated: 12/02/232235 Blood culture [[id number]] Collected: 12/02/232235 Specimen: Blood, Peripheral Draw Updated: 12/02/232235 Anaerobic culture [[id number]] Collected: 11/27/23 1548 Specimen: Body Fluid from Breast, Left Updated: 12/02/23 0851 Specimen Notes SPECIMEN A Culture NO GROWTH 5 DAYS Fungal culture includes fungal smear [[id number]] Collected: 11/27/23 1548 Specimen: Body Fluid from Breast, Left Updated: 11/28/23 0702 Specimen Notes SPECIMEN A Fungal smear -- NO FUNGAL ELEMENTS SEEN ON DIRECT SMEAR Culture PENDING AFB culture concentrated includes AFB smear [[id number]] (Abnormal) Collected: 11/27/23 1548 Specimen: Body Fluid from Breast, Left Updated: 12/01/23 1056 Specimen Notes SPECIMEN A AFB Smear NO ACID FAST BACILLI (CONCENTRATED SMEAR) Culture ACID FAST BACILLI ISOLATED Aspirate culture includes gram stain [[id number]] (Abnormal) Collected: 11/27/23 1548 Specimen: Aspirate Atr Updated: 12/01/23 1544 Specimen Notes SPECIMEN A Gram Stain Result >25 WHITE BLOOD CELLS/LPF 0 SQUAMOUS EPITHELIAL CELLS/LPF NO ORGANISMS SEEN Culture MODERATE ACID FAST BACILLI ISOLATED REPORT UPDATED GROWTH OBSERVED AT 48 HOURS Mrsa Pcr nasal swab [[id number]] Collected: 11/27/23 0020 Specimen: Nasal Updated: 11/27/23 0957 Mrsa PCR Negative Blood culture [[id number]] Collected: 11/26/23 1715 Specimen: Blood Updated: 12/01/23 2008 Culture NO GROWTH 5 DAYS Imaging Studies: No results found. Gino Flower APRN, [facility] [phone] Thank you for allowing us to participate in the care of this patient. Please call with questions. Gino Flower APRN-[facility] 12/03/23 1419 Carlene Landon MD, personally performed [id number] diagnostic evaluation on this patient I reviewed and performed all the ross component of the patient visit I reviewed CELINA history, exam and MDM - Carlene Noguera MD 12/03/23 3:19 PM * Epifanio Henry MD - 12/03/2023 12:13 PM EDTAssociated Order(s): Consult Nephrology Images from the original note were not included. Consult Nephrology Consult performed by: Epifanio Henyr MD Consult ordered by: Chris Hollis PA-C NEPHROLOGY CONSULT NOTE Date of Admission: 12/02/2023 9:55 PM Reason for Consult: Acute kidney injury Referring Provider: Chris Hollis PA-C PCP: AMEENA GARCIA Chief Complaint: Fevers History of Present Illness: Ike Flannery is a 53 y.o. female who presented with the above chief complaint. The patient was recently discharged from the hospital after removal of breast putty mixer secondary to infection. She was discharged on [...] except for the removal of the breast putty mixer and the IV antibiotics for the infection. [...] seroma status post removal of left breast putty mixer on November 27, 2023 Hypertension Edema Depression/anxiety [...] 60 min Stress: Stress Concern Present (02/27/2022) [employer] [place] [employer] - Occupational Stress Questionnaire Feeling of Stress : To some extent Social Connections: Socially Integrated (02/27/2022) Social Connection and Isolation Panel [NHANES] Frequency of Communication with Friends and Family: Twice a week Frequency of Social Gatherings with Friends and Family: Three times a week Attends Jehovah'S Witness Services: More than 4 times per year [...] Lab Units 12/03/23 0350 12/02/23 2305 12/02/23 2213 TOTAL PROTEIN g/dL 5.5* [...] call us with any questions at: Office: [phone] Office Answering Service: [phone] Epifanio Henry M.D. This note was created with the assistance of a speech-recognition program. Although the intention is to generate a document that actually reflects the content of the visit, no guarantees can be provided that every mistake has been identified and corrected by editing. documented in this encounterCincinnati Children's Hospital Medical CenterDigital Folio [facility] [id number] Consult note* Carlene Noguera MD - 12/03/2023 2:03 PM EDTAssociated Order(s): IP CONSULT TO INFECTIOUS DISEASES Images from the original note were not included. [facility] - Initial Consult Note Ike Flannery Admit date/time 12/02/2023 9:55 PM Today's Date and Time: 12/03/2023, 2:03 PM Impression: Left breast cellulitis Postop infection of left breast tissue putty mixer-culture growing acid-fast bacilli Acute kidney injury History [...] care Ambulatory referrals to Infectious Disease at [facility], [facility], [facility] have been placed for F/U acid-fast bacilli. Patient was notified by [facility] that she can not use her insurance over [employer] line. We will send referral per patient request to [facility]. Reason for consultation: Infection on IV antibiotics, established patient Chief complaint Postop problem History of Present Illness: Ike Flannery is a 53 y.o.-year-old female who was initially admitted on 12/02/2023. Patient presents to hospital with complaints fever, chills, and vomiting. Patient was recently admitted and discharged from [facility] after removal of infected tissue putty mixer. She was discharged home on Vancomycin and Ertapenem to continue tentatively until December 08. [facility]. Last night, we were notified that creatinine was 2.56 and vanco trough 33. Patient also complaining nausea, fever, and chills and was advised to go to ER. Left breast cultures from previous admission are preliminarily growing acid-fast bacilli. [facility]have been [facility] to [facility], and [facility] for management/treatment. Per patient, [facility] notified her today and stated they cannot accept her insurance. [facility] cannot see her until December or January. Will place referral to [facility] per patient request. Patient states she feels better today with no further nausea or vomiting.. WBC stable. Denies any cough or shortness of breath. Pain is stable I have personally reviewed the past medical history, past surgical history, medications, social history, and family history, and I have updated the database accordingly. Past Medical History: Past Medical History: Diagnosis Date Breast cancer ([facility]) 2023 mammary carcinoma Deep vein thrombosis ([facility]) 09/18/2023 Left calf Hypertension Knee pain PONV (postoperative nausea and vomiting) Port-A-Cath in place 05/13/2023 Visual impairment Glasses Past Surgical History: Past Surgical History: Procedure Laterality Date ARTHROSCOPIC REPAIR ACL Right 2006 ARTHROSCOPIC REPAIR ACL Left 08/26/2021 BREAST BIOPSY Right 2023 mammary carcinoma EXCISION LYMPH NODE AXILLARY DISSECTION Right 10/28/2023 Performed by Christy He MD at [facility] HYSTERECTOMY IMMEDIATE BREAST RECONSTRUCTION WITH TISSUE CARD MOUNTER PLACEMENT Bilateral 10/28/2023 Performed by Jhon Gross MD at [facility] INCISION DRAINAGE BREAST Left 11/27/2023 Performed by Jhon Gross MD at [facility] MAGNETIC SEED LOCALIZATION EXCISION/BIOPSY MASS BREAST (MAG SEED LOCALIZED TARGETED DISSECTION FOR RETRIEVAL OF PREVIOUSLY CLIPPED LYMPH NODE) Right 10/28/2023 Performed by Christy He MD at [facility] MASTECTOMY BREAST SIMPLE RISK REDUCING SKIN SPARING Left 10/28/2023 Performed by Christy He MD at [facility] MASTECTOMY BREAST SIMPLE SKIN SPARING Right 10/28/2023 Performed by Christy He MD at [facility] MENISCECTOMY Bilateral 2022 PORTACATH PLACEMENT Left left chest REMOVAL CARD MOUNTER TISSUE BREAST Left 11/27/2023 Performed by Jhon Gross MD at [facility] RIGHT AXILLARY PROPHYLACTIC BYPASS LYMPHOVENOUS Right 10/28/2023 Performed by Jhon Gross MD at [facility] TONSILLECTOMY AND ADENOIDECTOMY Age [...] 60 min Stress: Stress Concern Present (02/27/2022) [employer] [employer] - Occupational Stress Questionnaire Feeling of Stress : To some extent Social Connections: Socially Integrated (02/27/2022) Social Connection and Isolation Panel [NHANES] Frequency of Communication with Friends and Family: Twice a week Frequency of Social Gatherings with Friends and Family: Three times a week Attends Jehovah'S Witness Services: More than 4 times per year [...] Procedure Component Value Units Date/Time Urine culture [[id number]] Collected: 12/02/23 234 Specimen: Urine Updated: 12/03/23828 Blood culture [[id number]] Collected: 12/02/232235 Specimen: Blood, Peripheral Draw Updated: 12/02/232235 Blood culture [[id number]] Collected: 12/02/232235 Specimen: Blood, Peripheral Draw Updated: 12/02/232235 Anaerobic culture [[id number]] Collected: 11/27/23 1548 Specimen: Body Fluid from Breast, Left Updated: 12/02/23 0851 Specimen Notes SPECIMEN A Culture NO GROWTH 5 DAYS Fungal culture includes fungal smear [[id number]] Collected: 11/27/23 1548 Specimen: Body Fluid from Breast, Left Updated: 11/28/23 0702 Specimen Notes SPECIMEN A Fungal smear -- NO FUNGAL ELEMENTS SEEN ON DIRECT SMEAR Culture PENDING AFB culture concentrated includes AFB smear [[id number]] (Abnormal) Collected: 11/27/23 1548 Specimen: Body Fluid from Breast, Left Updated: 12/01/23 1056 Specimen Notes SPECIMEN A AFB Smear NO ACID FAST BACILLI (CONCENTRATED SMEAR) Culture ACID FAST BACILLI ISOLATED Aspirate culture includes gram stain [[id number]] (Abnormal) Collected: 11/27/23 1548 Specimen: Aspirate Atr Updated: 12/01/23 1544 Specimen Notes SPECIMEN A Gram Stain Result >25 WHITE BLOOD CELLS/LPF 0 SQUAMOUS EPITHELIAL CELLS/LPF NO ORGANISMS SEEN Culture MODERATE ACID FAST BACILLI ISOLATED REPORT UPDATED GROWTH OBSERVED AT 48 HOURS Mrsa Pcr nasal swab [[id number]] Collected: 11/27/23 0020 Specimen: Nasal Updated: 11/27/23 0957 Mrsa PCR Negative Blood culture [[id number]] Collected: 11/26/23 1715 Specimen: Blood Updated: 12/01/232007 Culture NO GROWTH 5 DAYS Imaging Studies: No results found. Gino Mcnealmerrill RICHTERMCLAREN FLINT [phone] Thank you for allowing us to participate in the care of this patient. Please call with questions. Gino Flower APRNHARLEY PRIVATE [facility] 12/03/23 1419 Carlene Landon MD, personally performed [id number] diagnostic evaluation on this patient I reviewed and performed all the ross component of the patient visit I reviewed CELINA history, exam and MDM - Carlene Noguera MD 12/03/23 3:19 PM [facility]10-03-2024 Consult note* Epifanio Henry MD - [...] from the hospital after removal of breast putty mixer secondary to infection. She was discharged on [...] except for the removal of the breast putty mixer and the IV antibiotics for the infection. [...] seroma status post removal of left breast putty mixer on November 27, 2023 Hypertension Edema Depression/anxiety [...] 60 min Stress: Stress Concern Present (02/27/2022) [employer] [place] [employer] - Occupational Stress Questionnaire Feeling of Stress : To some extent Social Connections: Socially Integrated (02/27/2022) Social Connection and Isolation Panel [NHANES] Frequency of Communication with Friends and Family: Twice a week Frequency of Social Gatherings with Friends and Family: Three times a week Attends Jehovah'S Witness Services: More than 4 times per year [...] 7 days Lab Units 12/03/23 03512/02/23221211/30/2392911/27/23 0545 11/26/23 1715 SODIUM mmol/L 137 133* [...] from last 7 days Lab Units 12/03/23 03512/02/23230412/02/232212 TOTAL PROTEIN g/dL 5.5* -- 6.4 ALBUMIN [...] call us with any questions at: Office: [phone] Office Answering Service: [phone] Epifanio Henry M.D. This note was created with the assistance of a speech-recognition program. Although the intention is to generate a document that actually reflects the content of the visit, no guarantees can be provided that every mistake has been identified and corrected by editing. [employer]10-03-2024 Progress note* Discharge Planning Note - Heike Anderson - 12/03/2023 9:59 AM EDT DISCHARGE PLANNING NOTE Referral to [facility], [facility] [employer] [facility]- [place], [place] [facility] - (P# ; F# ) [employer]10-03-2024 Progress note* Discharge Planning Note - Mariah Starr RN - 12/03/2023 9:16 AM EDT DISCHARGE PLANNING NOTE Dental Assisting Instructor met with patient and at bedside, introduced [...] - Vanco/Ertapenum at home thru [facility] with [facility] drawing labs three days a week and weekly port dressing changes. Patient denies need for transportation/ food/ prescription medication assistance resources. PCP: RICHIE HANNA APRN-APPARATUS ENGINEERING TECHNOLOGIST Pharmacy:[facility] in [place] PCP and pharmacy confirmed with patient. CN offered to assist with follow up appointment arrangements, patient declined need. Current discharge plan is: home with IV antibiotics Task sent to [facility] to send referral to [facility]. Will continue to follow as plan of care develops. CN discussed benefits and importance of medication compliance and follow ups. - MARIAH STARR RN 12/03/23 9:16 AM [facility]10-03-2024 Plan of care note* Plan of Care - Shanice Hogan RN - 12/03/2023 1:08 AM EDT Problem: Low Risk Fall Score Description: Pickens Fall Score of 0 - 24 or indicated by [facility] Assessment Goal: Patient should be free from fall Description: Interventions: 1. [place]comb to environment 2. Hourly rounds addressing the [...] non-skid footwear 11. Teach patient and patient registration representative to maintain environment for safety and [...] Description: INTERVENTIONS: 1. Encourage patient or legal registration representative to report early pain and ask [...] per policy 9. Teach patient or legal registration representative interventions for comforting Outcome: Progressing Note: [...] at the bedside 7. Instruct patient/ patient registration representative about use of safety devices 8. Include patient/ patient registration representative in decisions related to safety Outcome: [...] hygiene technique 7. Identify and instruct patient/patient registration representative in use of appropriate isolation precautionsfor identified infection/symptoms 8. Provide and discuss with patient/patient registration representative on educational MDRO sheet 9. Encourage and monitor nutritional status daily and consult marketing traffic coordinator if indicated 10. Implement neutropenic guidelines as needed 11. Review exposure to history of communicable disease and recent travel history on admission 12. Encourage annual influenza vaccine 13. Encourage pneumonia vaccine Outcome: Progressing Note: Evaluation of progress towards goal: Afebrile, labs and VS monitored Problem: Knowledge Deficit Goal: Patient/patient registration representative demonstrates understanding of disease process, treatment [...] Collaborate with ancillary departments 14. Include patient/patient registration representative in decisions related to anxiety Outcome: [...] providing care 6. Collaborate with pastoral/spiritual care, clinical social work therapist, mental health counselor as needed. 7. Instruct patient on diversional activities such as physical activity, distraction, and deep breathing exercises to assist with coping 8. Involve patient's registration representative in care Outcome: Progressing Note: Evaluation [...] hydration as ordered 5. Instruct patient/ legal registration representative on nutrition/diet; fluid/hydration restrictions as appropriate Outcome: Progressing Note: Evaluation of progress towards goal: Display of normal lab values. Electrolytes are replaced as needed. [facility]10-03-2024 History and physical note* Elayne Chow MD - 12/03/2023 12:25 AM EDT Images from the original note were not included. [facility] INTERNAL MEDICINE [facility] DIVISION OF [facility] -EMERGENCY DEPT [address] [facility] [id number] Hospital Medicine History & Physical Patient: Ike [...] admission was requested. Patient did see Dr. Gross, plastic surgery, earlier today and reports he [...] her port since then and saw Dr. Gross today. Patient states she started having a [...] DAILY IN THE EVENING 04/28/23 SulmaMarilu Manuel PLANNING LEAD-BARREL LATHE OPERATOR OUTSIDE dexAMETHasone (DECADRON) 1 mg tablet TAKE ONE TABLET BY MOUTH TWICE A DAY ON DAYS 3-6 AFTER CHEMOTHERAPY FOR FATIGUE Patient not taking: Reported on 10/16/2023 04/21/23 Not In System Ref Prov diazePAM (VALIUM) 5 mg tablet Take 1 tablet (5 mg total) by mouth every 6 (six) hours as needed formuscle spasms. 11/11/23 Marislea Cuevas, PLANNING LEAD-APPARATUS ENGINEERING TECHNOLOGIST DULoxetine (CYMBALTA) 30 mg capsule Take 1 [...] for 10 days. 11/29/23 12/09/23 Leelee Lieberman, PLANNING LEAD-APPARATUS ENGINEERING TECHNOLOGIST ferrous sulfate 325 (65 FE) mg tablet Take 1 tablet (325 mg total) by mouth in the morning. Patient not taking: Reported on 07/30/2023 03/07/22 Richie Hanna PLANNING LEAD-APPARATUS ENGINEERING TECHNOLOGIST fluticasone propionate (FLONASE) 50 mcg/actuation nasal spray [...] Daily Amount: 30 mg 11/28/23 12/03/23 Jhon Gross MD predniSONE (DELTASONE) 5 mg tablet Take [...] a past medical history of Breast cancer ([facility]) (2023), Deep vein thrombosis ([facility]) (09/18/2023), Hypertension, Knee pain, PONV (postoperative nausea [...] excision (Right, 10/28/2023); Mastectomy (Left, 10/28/2023); Tissue putty mixer placement (Bilateral, 10/28/2023); Lymph node dissection (Right, 10/28/2023); Tissue putty mixer removal (Left, 11/27/2023); and Incision and drainage [...] data in the 24 hours ending 12/02/23 7448 Physical Exam Constitutional: General: Not in acute distress. Appearance: Normal appearance and is well-developed. HENT: Head: Normocephalic and atraumatic. Right Ear: External ear normal. Left Ear: External ear normal. Nose: Nose normal. Mouth/Throat: Lips: [place]. Eyes: General: No scleral icterus. Extraocular Movements: [...] LIST Principal Problem: MIRNA (acute kidney injury) ([facility]) ASSESSMENT & PLAN Acute kidney injury, possibly [...] per their recommendation Plastic surgeon is Dr. Gross, will consult if any needs while inpatient [...] course. CHRIS HOLLIS PA-C 12/03/2023 12:26 AM [facility] 7AM-7PM (all facilities): Knoticet or page through AgentPiggy. 7PM-7AM ([facility], [facility]): EpicChat or page, [phone]. 7PM-7AM ([place], [place], [place], [place] and [facility]): EpicChat or page through AgentPiggy. Chirs Hollis PA-C 12/03/23 0025 Chris Hollis PA-C [...] ID and Nephrology input. Elayne Chow MD [facility]10-03-2024 History and physical note* Elayne Chow MD - 12/03/2023 12:25 AM EDT Images from the original note were not included. [facility] INTERNAL MEDICINE [facility] DIVISION OF [facility] -EMERGENCY DEPT [address] [place] [address] Hospital Medicine History & Physical Patient: Ike [...] admission was requested. Patient did see Dr. Gross, plastic surgery, earlier today and reports he [...] her port since then and saw Dr. Gross today. Patient states she started having a low grade fever and chills and was sent by infectious disease tonight Allergies: Meperidine, Daptomycin, and Adhesive Prior to Admission medications Medication Sig Start Date End Date Taking? Authorizing Provider acetaminophen (TYLENOL EXTRA STRENGTH) 500 mg tablet Take 2 tablets (1,000 mg total) by mouth every8 (eight) hours as needed for pain. 10/29/23 Sehreen Smallwood PA-C albuterol (PROVENTIL,VENTOLIN) 2.5 mg /3 mL (0.083 %) nebulizer solution Inhale 3 mL (2.5 mg total)by nebulization every 6 (six) hours as needed for wheezing. Patient not taking: Reported on 10/28/2023 03/07/22 AMEENA Garcia capecitabine (XELODA) 500 mg chemo tablet Take [...] as needed formuscle spasms. 11/11/23 Marisela Cuevas APRN-ESPERANZA DULoxetine (CYMBALTA) 30 mg capsule Take 1 [...] for 10 days. 11/29/23 12/09/23 Leelee Lieberman APRN-ESPERANZA ferrous sulfate 325 (65 FE) mg tablet [...] Daily Amount: 30 mg 11/28/23 12/03/23 Jhon Gross MD predniSONE (DELTASONE) 5 mg tablet Take [...] a past medical history of Breast cancer ([facility]) (2023), Deep vein thrombosis ([facility]) (09/18/2023), Hypertension, Knee pain, PONV (postoperative nausea [...] excision (Right, 10/28/2023); Mastectomy (Left, 10/28/2023); Tissue putty mixer placement (Bilateral, 10/28/2023); Lymph node dissection (Right, 10/28/2023); Tissue putty mixer removal (Left, 11/27/2023); and Incision and drainage [...] ear normal. Nose: Nose normal. Mouth/Throat: Lips: [place]. Eyes: General: No scleral icterus. Extraocular Movements: [...] LIST Principal Problem: MIRNA (acute kidney injury) ([facility]) ASSESSMENT & PLAN Acute kidney injury, possibly [...] per their recommendation Plastic surgeon is Dr. Gross, will consult if any needs while inpatient [...] course. CHRIS HOLLIS PA-C 12/03/2023 12:26 AM [facility] Internal Medicine 7AM-7PM (all facilities): EpicChat or page through AgentPiggy. 7PM-7AM ([facility], [facility] and [facility]): EpicChat or page, [phone]. 7PM-7AM ([place], [place], [place], [place] and [facility]): EpicChat or page through AgentPiggy. Chris Hollis PA-C 12/03/23 0025 Chris Hollis [...] input. Elayne Chow MD documented in this encounterVan [facility] Physician Emergency department Note* Kayleigh Adames, [...] her port since then and saw Dr. Gross today. Patient states she started having a [...] to drink water. 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 by: Patient independent crop consultant used?: No Problem List Items Addressed This Visit None Past Medical History: Diagnosis Date Breast cancer ([facility]) 2023 mammary carcinoma Deep vein thrombosis ([facility]) 09/18/2023 Left calf Hypertension Knee pain PONV (postoperative nausea and vomiting) Port-A-Cath in place 05/13/2023 Visual impairment Glasses Past Surgical History: Procedure Laterality Date ARTHROSCOPIC REPAIR ACL Right 2006 ARTHROSCOPIC REPAIR ACL Left 08/26/2021 BREAST BIOPSY Right 2023 mammary carcinoma EXCISION LYMPH NODE AXILLARY DISSECTION Right 10/28/2023 Performed by Christy He MD at [facility] HYSTERECTOMY IMMEDIATE BREAST RECONSTRUCTION WITH TISSUE CARD MOUNTER PLACEMENT Bilateral 10/28/2023 Performed by Jhon Gross MD at [facility] INCISION DRAINAGE BREAST Left 11/27/2023 Performed by Jhon Gross MD at [facility] MAGNETIC SEED LOCALIZATION EXCISION/BIOPSY MASS BREAST (MAG SEED LOCALIZED TARGETED DISSECTION FOR RETRIEVAL OF PREVIOUSLY CLIPPED LYMPH NODE) Right 10/28/2023 Performed by Christy He MD at [facility] MASTECTOMY BREAST SIMPLE RISK REDUCING SKIN SPARING Left 10/28/2023 Performed by Christy He MD at [facility] MASTECTOMY BREAST SIMPLE SKIN SPARING Right 10/28/2023 Performed by Christy He MD at [facility] MENISCECTOMY Bilateral 2022 PORTACATH PLACEMENT Left left chest REMOVAL CARD MOUNTER TISSUE BREAST Left 11/27/2023 Performed by Jhon Gross MD at [facility] RIGHT AXILLARY PROPHYLACTIC BYPASS LYMPHOVENOUS Right 10/28/2023 Performed by Jhon Gross MD at [facility] TONSILLECTOMY AND ADENOIDECTOMY Age [...] of 12/09/23 1236 MIRNA (acute kidney injury) ([facility]) Infection of deep incisional surgical site after procedure, initial encounter 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 Adames. Chart Reviewed. [...] bolus (1,000 mL intravenous New Bag 12/02/23 3202) Medication List None Diagnosis: 1. MIRNA (acute kidney injury) ([facility]) Disposition: Patient's disposition: Admit Patient's condition is stable. Critical Care time: Provider Statement By electronically signing this emergency patient record, the Emergency Physician/PUZZLE ASSEMBLER/PA-C attests that all entries made into the electronic medical record by annamarie Pak prior to the Physician/PUZZLE ASSEMBLER/PA-C signature reflect an accurate accounting of the evaluation and care rendered by that Malini laracy Physician/PUZZLE ASSEMBLER/PA-C. The Emergency Physician/PUZZLE ASSEMBLER/PA-C assumes full responsibility for those entries. The Emergency Physician/PUZZLE ASSEMBLER/PA-C also attests that any patient testing or treatment that was instituted by nursing staff in accordance to Emergency Department Preemptive Guidelines have been reviewed and unless so stated elsewhere in this patient chart, the Physician/PUZZLE ASSEMBLER/PA-C agrees with the testing and care provided. Provider Statement: By electronically signing this emergency patient record, the Emergency Physician/PUZZLE ASSEMBLER/PA-C attests that all entries made into the electronic medical record by the scribe prior to the Physician/PUZZLE ASSEMBLER/PA-C signature reflect an accurate accounting of the evaluation and care rendered by that Emergency Physic milagro/PUZZLE ASSEMBLER/PA-C. The Emergency Physician/PUZZLE ASSEMBLER/PA-C assumes full responsibility for those entries. Jeff Becker 12/02/23 2221 Jeff Becker 12/02/23 2305 Kayleigh Adames DO 12/05/23 2610 [facility]10-02-2024 Emergency department Note* Kayleigh Adames DO [...] her port since then and saw Dr. Gross today. Patient states she started having a low grade fever and chills and was sent by [facility] Inital Evaluation by Dr. Adames at 10:13 [...] to drink water. 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 by: Patient independent crop consultant used?: No Problem List Items Addressed This [...] 10/28/2023 Performed by Christy He MD at [facility] HYSTERECTOMY IMMEDIATE BREAST RECONSTRUCTION WITH TISSUE CARD MOUNTER PLACEMENT Bilateral 10/28/2023 Performed by Jhon Gross MD at [facility] INCISION DRAINAGE BREAST Left 11/27/2023 Performed by Jhon Gross MD at [facility] MAGNETIC SEED LOCALIZATION EXCISION/BIOPSY MASS BREAST (MAG SEED LOCALIZED TARGETED DISSECTION FOR RETRIEVAL OF PREVIOUSLY CLIPPED LYMPH NODE) Right 10/28/2023 Performed by Christy He MD at [facility] MASTECTOMY BREAST SIMPLE RISK REDUCING SKIN SPARING Left 10/28/2023 Performed by Christy He MD at [facility] MASTECTOMY BREAST SIMPLE SKIN SPARING Right 10/28/2023 Performed by Christy He MD at [facility] MENISCECTOMY Bilateral 2022 PORTACATH PLACEMENT Left left chest REMOVAL CARD MOUNTER TISSUE BREAST Left 11/27/2023 Performed by Jhon Gross MD at [facility] RIGHT AXILLARY PROPHYLACTIC BYPASS LYMPHOVENOUS Right 10/28/2023 Performed by Jhon Gross MD at [facility] TONSILLECTOMY AND ADENOIDECTOMY Age [...] of 12/09/23 1236 MIRNA (acute kidney injury) ([facility]) Infection of deep incisional surgical site after procedure, initial encounter 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 Adames. Chart Reviewed. Date: [...] None Diagnosis: 1. MIRNA (acute kidney injury) ([facility]) Disposition: Patient's disposition: Admit Patient's condition is stable. Critical Care time: Provider Statement By electronically signing this emergency patient record, the Emergency Physician/PUZZLE ASSEMBLER/PA-C attests that all entries made into the electronic medical record by annamarie Pak prior to the Physician/PUZZLE ASSEMBLER/PA-C signature reflect an accurate accounting of the evaluation and care rendered by that [facility] Physician/PUZZLE ASSEMBLER/PA-C. The Emergency Physician/PUZZLE ASSEMBLER/PA-C assumes full responsibility for those entries. The Emergency Physician/PUZZLE ASSEMBLER/PA-C also attests that any patient testing or treatment that was instituted by nursing staff in accordance to Emergency Department Preemptive Guidelines have been reviewed and unless so stated elsewhere in this patient chart, the Physician/PUZZLE ASSEMBLER/PA-C agrees with the testing and care provided. Provider Statement: By electronically signing this emergency patient record, the Emergency Physician/PUZZLE ASSEMBLER/PA-C attests that all entries made into the electronic medical record by the scribe prior to the Physician/PUZZLE ASSEMBLER/PA-C signature reflect an accurate accounting of the evaluation and care rendered by that Emergency Physic milagro/PUZZLE ASSEMBLER/PA-C. The Emergency Physician/PUZZLE ASSEMBLER/PA-C assumes full responsibility for those entries. Jeff Becker 12/02/232220 Jeff Becker 12/02/23 230 Kayleigh Adames DO 12/05/23 8930 documented in this [facility]10-02-2024 History of Present illness Narrative* AMEENA Vallejo - 12/02/2023 9:25 PM EDT 1300: spoke with Purvi RENAE from [facility] who received call from [facility] RN to report Vanco level of 33. She stated that infusion center RN then infused patient's vancomycin. Reportedly, patient had brought her vanco dose with her when she went to infusion center to get labs drawn and asked RN at center to ferry terminal supervisor her vanco while she was there. Purvi stated she called [facility] to speak with pharmacist regarding vanco trough and that the patient received vanco dose. I called RN at infusion center (John) and provided clinic fax number to send lab results. AMEENA Vallejo 12/02/232132 documented in this encounterVan [facility]10-[facility] History of Present illness Narrative* AMEENA [...] I and D with removal of tissue putty mixer 11/27/2023 I have directed patient to the ER at this time for evaluation . Patient states she will report to [facility] the following: Consideration for admission Check Blood Cultures Check Creat Please contact our service for further direction ([facility], Dr Calrene Noguera) AMEENA Salazar 12/02/231940 documented in this encounterVan Wert [facility] Hospital10-02-2024 Miscellaneous Notes* Telephone Encounter - Kendra Lewis - 12/02/2023 7:20 PM EDT Contract: 174 RE Chills, Nausea, Fever 100.9 * Telephone Encounter - Kendra Lewis - 12/02/2023 7:20 PM EDT Secure chat sent to Shanice Shook CNP documented in this encounterVan Wert [facility] Hospital10-02-2024 Telephone encounter Note* Telephone Encounter - Kendra Lewis - 12/02/2023 7:20 PM EDT Contract: 174 RE Chills, Nausea, Fever 100.9 [facility]10-02-2024 Telephone encounter Note* Telephone Encounter - Kendra Lewis - 12/02/2023 7:20 PM EDT Secure chat sent to Shanice Shook CNP [facility]10-02-2024 History of Present illness Narrative* AMEENA [...] Discussed with bio script pharmacist Zohra from [facility]. AMEENA Gomez 12/02/231916 documented in this encounterVan Wert [facility] Hospital10-02-2024 History of Present illness Narrative* Jhon Gross MD - 12/02/2023 10:00 AM EDT [facility] Plastic & Reconstructive Surgery [address] Office Jhon Gross MD, PhD AMEENA Kennedy PA-C Plastic Surgery Progress Note Reason for visit : 1 week postoperative appointment. History of present illness: Ike Flannery 53 y.o. is here today for a follow up after I&D of left breast with removal of left breast tissue putty mixer on 11/27/2023. She presents to the office [...] air. Follow up next week for tissue putty mixer filled. She was advised to call the office any questions orconcerns in the interim. - Marisela Cuevas APRN-APPARATUS ENGINEERING TECHNOLOGIST 12/02/23 11:55 AM IJHON MD, PHD personally performed the face to face evaluation on this patient. I discussed with the patient and confirmed the accuracy and completeness of the aforementioned history,and I personally performed the clinical examination of the patient. I have established and discussed the course of treatment with the patient. Jhon Gross MD, PhD [facility] Total time spent was 15 minutes: Preparing to see the patient (e.g., review of tests) Obtaining and/or reviewing separately obtained history Performing a medically appropriate examination and/or evaluation Counseling and educating the patient/family/caregiver Ordering medications, tests, or procedures Referring and communicating with other health senior care provider (not separately reported) Documenting clinical information in the electronic or other health record Independently interpreting results (not separately reported) and communicating results to the patient/family/caregiver Care coordination (not separately reported) Please note that portions of this note were generated using voice recognition [employer] dictation software. Although every effort was made to ensure the accuracy of this automated control panel operator crude unit, some errors in control panel operator crude unit may have occurred. documented in this encounterVan Wert County Hospital10-02-2024 Miscellaneous Notes* Telephone Encounter - Elisa [...] I and D with removal of tissue putty mixer 11/27/2023 Discharge Specialty: Infectious Disease *Name of Discharging Facility: [facility] Date of Facility Discharge: Admission 11/26/23 Discharge 11/30/23 Date of Interactive Contact and Name of Requirements Manager: 12/02/23 1011 am Spoke to patient. She was at Dr. Barbosa office. Patient was agreeable for health science writer to call back in the afternoon [...] pain and SOB. Patient is going to [facility] three days a week for dressing [...] by the Patient: NA documented in this encounterCincinnati Children's Hospital Medical CenterDigital Folio [facility] [id number] Telephone encounter Note* Telephone Encounter - Elisa [...] I and D with removal of tissue putty mixer 11/27/2023 Discharge Specialty: Infectious Disease *Name of Discharging Facility: [facility] Date of Facility Discharge: Admission 11/26/23 Discharge 11/30/23 Date of Interactive Contact and Name of Requirements Manager: 12/02/23 1011 am Spoke to patient. She was at Dr. Barbosa office. Patient was agreeable for health science writer to call back in the afternoon [...] Up Appointments with Providers: Primary: RICHIE HANNA APRN-APPARATUS ENGINEERING TECHNOLOGIST Specialty: Infectious Disease 12/08/23 Specialty: Specialty: Review [...] pain and SOB. Patient is going to [facility] three days a week for dressing [...] Other Services Utilized/Needed by the Patient: NA [facility] [id number] Miscellaneous Notes* Telephone Encounter - Concha Mcgregor - 11/28/2023 6:45 PM EDT Contract: 206 [facility] [address]12 RE IV Reaction to meds * Telephone Encounter - Concha Mcgregor - 11/28/2023 6:45 PM EDT Contract: [address] Gross and connected call documented in [facility] Telephone encounter Note* Telephone Encounter - Concha Mcgregor - 11/28/2023 6:45 PM EDT Contract: [address] 712 RE IV Reaction to meds [facility]09-28-20[facility] Telephone encounter Note* Telephone Encounter - Concha Thomas Balbir - 11/28/2023 6:45 PM EDT Contract: [address] Gross and connected call [facility]09-26-[facility] History of Present illness Narrative* Jhon Gross MD - 11/26/2023 11:45 AM EDT [facility] Plastic & Reconstructive Surgery [address] Office Jhon Gross MD, PhD Marisela Cuevas, PLANNING LEAD-APPARATUS ENGINEERING TECHNOLOGIST Shereen Smallwood PA-C Plastic Surgery Progress Note [...] left breast. This was discussed with Dr. Gross who wanted to evaluate the patient in [...] possible infected seroma in the setting tissue putty mixer reconstruction Recommendations: discussed with patient that given the appearance of her breast we would like to becautious and admit her to the hospital for IV antibiotics. Discussed that we have a suspicion for infection. We discussed that we would like to proceed with removal of her tissue putty mixer tomorrow and place a drain. We discussed since she does need post operative radiation that we would not want toplace a new tissue putty mixer. Direct admission has been started. Please note that portions of this note were generated using voice recognition T[employer] dictation software. Although every effort was made to ensure the accuracy of this automated control panel operator crude unit, some errors in control panel operator crude unit may have occurred. I, JHON GROSS MD, PHD personally performed the face to face evaluation on this patient. I discussed with the patient and confirmed the accuracy and completeness of the aforementioned history,and I personally performed the clinical examination of the patient. I have established and discussed the course of treatment with the patient. Jhon Gross MD, PhD [facility] Plastic & Reconstructive Surgery Total time spent was 25 minutes: Preparing to see the patient (e.g., review of tests) Obtaining and/or reviewing separately obtained history Performing a medically appropriate examination and/or evaluation Counseling and educating the patient/family/caregiver Ordering medications, tests, or procedures Referring and communicating with other health senior care provider (not separately reported) Documenting clinical information in the electronic or other health record Independently interpreting results (not separately reported) and communicating results to the patient/family/caregiver Care coordination (not separately reported) documented in this encounterVan [facility]09-25-[facility]24 History of Present illness Narrative* Marisela Cuevas, PLANNING LEAD-APPARATUS ENGINEERING TECHNOLOGIST - 11/25/2023 3:00 PM EDT [facility] Plastic & Reconstructive Surgery [address] Office Jhon Gross MD, PhD Marisela Cuevas, PLANNING LEAD-APPARATUS ENGINEERING TECHNOLOGIST Shereen Smallwood PA-C Plastic Surgery Progress Note Reason for visit : Tissue putty mixer fill and drain removal. History of present illness: Ike Flannery 53 y.o. is here today for a follow up after bilateral breast reconstruction with placement of tissue expanders. She presents to the office today for removal ARTEMIO drain and tissue putty mixer filled. She does need postoperative radiation therapy. [...] verbal consent was obtained, the left tissue putty mixer aspirate port, was identified using a magnet. This area was cleansed with alcohol, and Betadine. Then using a 25 gauge needle, approximately 150ml cloudy yellow appearing fluid was aspirated from the left tissue putty mixer. Patient tolerated well. Adequate hemostasis was achieved, and a sterile bandage was applied. Procedure note : Tissue putty mixer fill port, was identified using magnet. This area was cleansed with alcohol, and Betadine. Then using a 25 gauge needle, approximately 150ml normal saline was injected into right tissue putty mixer(s). Patient tolerated well. Adequate hemostasis was achieved, and a sterile bandage was applied. TOTAL FILL VOLUME: 250ML Impression: 1. Encounter for postoperative care 2. Acquired absence of breast, bilateral Recommendations: Right-sided ARTEMIO drain removed in office today. Patient tolerated well. Left tissue putty mixer was then aspirated. Patient tolerated well. Discussed given that has a slightly cloudy appearance that it will send this off for culture. Discussed this takes approximately 5 days to get results. I will contact her with these when they are available. Held off on filling her left tissue putty mixer in office today given fluid collection. Right tissue putty mixer filled performed. Patient tolerated well. Continue with supportive bra. Continue to limit any heavy lifting pushing or pulling. Okay to work on gentle shoulder range of motion. Discussed I will also review fluid collection with Dr. Gross. Follow up next week for TE fill. She was advised to call the office any questions or concerns in the interim. - AMEENA Rand 11/25/23 5:19 PM Please note that portions of this note were generated using voice recognition [employer] dictation software. Although every effort was made to ensure the accuracy of this automated control panel operator crude unit, some errors in control panel operator crude unit may have occurred. AMEENA Kennedy 11/25/23 1719 documented in this encounterVan [facility]09-18-2024 History of Present illness Narrative* AMEENA Kennedy - 11/18/2023 11:30 AM EDT [facility] Plastic & Reconstructive Surgery [address] Office Jhon Gross MD, PhD AMEENA Kennedy PA-C Plastic Surgery [...] routine postoperative appointment, drain removal and tissue putty mixer filled. She states that she is doing [...] drainsites appear benign. Procedure note : Tissue putty mixer fill port, was identified using magnet. This area was cleansed with alcohol, and Betadine. Then using a 25 gauge needle, approximately 100ml normal saline was injected into bilateral tissue putty mixer(s). Patient tolerated well. Adequate hemostasis was achieved, [...] removed in office today. Tubing intact. Tissue putty mixer fill was then performed. Patient tolerated well. Discussed with patientkeeping drain sites covered for 2 days, then okay to leave open to air. Discussed keeping port sitebandages in place for 2 days, then okay to leave open to air. Okay to shower as long as she keeps dr chappell sites covered. Okay to sleep how she feels comfortable. Discussed it is okay to use [id number] acetaminophen or ibuprofen for pain after tissue putty mixer filled. Continue to refrain from anyheavy lifting pushing or pulling. Follow up next week for drain removal And possible tissue putty mixer filled. She was advised to call the office with any questions or concerns in the interim. - Marisela Cuevas APRN-APPARATUS ENGINEERING TECHNOLOGIST 11/18/23 1:15 PM Please note that portions of this note were generated using voice recognition M*Modal dictation software. Although every effort was made to ensure the accuracy of this automated control panel operator crude unit, some errors in control panel operator crude unit may have occurred. AMEENA Kennedy 11/18/23 1316 documented in this encounterVan [facility]09-11-2024 History of Present illness Narrative* AMEENA Kennedy - 11/11/2023 1:30 PM EDT [facility] Plastic & Reconstructive Surgery [address] Office Jhon Gross MD, PhD AMEENA Kennedy PA-C Plastic Surgery [...] week for possible drain removal and tissue putty mixer filled. Advised to call the office any questions or concerns in the interim. - AMEENA Rand 11/11/23 2:27 PM Please note that portions of this note were generated using voice recognition [employer] dictation software. Although every effort was made to ensure the accuracy of this automated control panel operator crude unit, some errors in control panel operator crude unit may have occurred. AMEENA Kennedy 11/11/23 1427 documented in this [facility]09-11-2024 Miscellaneous Notes* Addendum Note - AMEENA Kennedy - 11/11/2023 1:30 PM EDT Addended by: MARISELA CUEVAS on: 11/11/2023 02:38 PM Modules accepted: Orders documented in this [facility]09-11-2024 Note* Addendum Note - AMEENA Kennedy - 11/11/2023 1:30 PM EDTAddended by: MARISELA CUEVAS on: 11/11/2023 02:38 PM Modules accepted: Orders [facility]09-04-20[facility] History of Present illness Narrative* AMEENA Kennedy - 11/04/2023 11:00 AM EDT [facility] Plastic & Reconstructive Surgery [address] Office Jhon Gross MD, PhD Marisela Cuevas, AMEENA Smallwood PA-C [...] needs radiation therapy. Discussed deflated contralateral tissue putty mixer prior to radiation simulation. Encouraged patient tosupplement with protein given she is having a slight decreased appetite. Continue to stay well hydrated. Follow-up in 1 week for possible drain removal. She was advised to call the office any questions orconcerns in the interim. - AMEENA Rand 11/04/23 11:17 AM Please note that portions of this note were generated using voice recognition T[employer] dictation software. Although every effort was made to ensure the accuracy of this automated control panel operator crude unit, some errors in control panel operator crude unit may have occurred. AMEENA Kennedy 11/04/23 1143 documented in this encounterNorthwestern Medical CenterGROU.PS08-27-2024 NotePatient: Tia Flannery Procedure Information Date/Time: 10/27/23 0730 Procedure: Right heart cath (Right) - pc approved Location: [facility] STRIPPING SHOVEL OPERATOR 2 BIPLANE / [facility] (Cath) Providers: Clint Bazan MD [...] discussed with attending and fellow. [facility] History of Present illness Narrative* KHLOE Yoder - 10/23/2023 2:12 PM EDT [employer] Work Check request submitted x3. Dental Assisting Instructor sent correspondence to patient to update her. - KHLOE Yoder 10/23/23 2:12 PM documented in this encounterVan [facility]ert [facility]08-20-2024 History of Present illness Narrative* KHLOE Yoder - 10/20/2023 2:38 PM EDT [employer] packet submitted.- KHLOE Yoder 10/20/23 2:39 PM documented in this [facility]08-16-2024 History of Present illness Narrative* Niurka Stockton [...] of all information reviewed. documented in this encounterVan [facility]ert [facility]08-16-2024 History of Present illness Narrative* KHLOE Yoder - 10/16/2023 1:58 PM EDT [employer] Work Spoke with patient. Foundation request made. Add change submitted. - KHLOE Yoder 10/16/23 1:59 PM documented in this [facility]-16-20[facility] History and physical note* AMEENA Marin - 10/16/2023 11:00 AM EDT PRE-ADMISSION TESTING HISTORY AND PHYSICAL EXAM DATE: 10/16/23 PCP: RICHIE HANNA APRN-APPARATUS ENGINEERING TECHNOLOGIST HISTORY OF PRESENT ILLNESS: Ike Flannery, a 53 y.o. White or female, presents to [facility] for a pre-surgical H&P. The patient [...] the most recent lab values available in [facility] at the time ofthe office [...] Risk Reducing Skin Sparing - Left Exchange Cnc Machine Setter Tissue Breast - Bilateral Skin Plasty Tissue Rearrangement (De Epithelialized Inferior Autoderm Flap 51070) - Bilateral Bypass LymphovenousProphylactic(Psb) - Right with Dr. He and Dr. Gross. AMEENA Marin 10/16/23 1405 [employer] Work Phone: 1(606) 326-222108-16-2024 History and physical note* AMEENA Marin - 10/16/2023 11:00 AM EDT PRE-ADMISSION TESTING HISTORY AND PHYSICAL EXAM DATE: 10/16/23 PCP: AMEENA GARCIA HISTORY OF PRESENT ILLNESS: Ike Flannery, a 53 y.o. White or female, presents to [facility] for a pre-surgical H&P. The patient [...] Past Medical History: Diagnosis Date Breast cancer ([facility]) 2023 mammary carcinoma Deep vein thrombosis ([facility]) 09/18/2023 Left calf Hypertension Knee pain PONV [...] the most recent lab values available in [facility] at the time ofthe office [...] Risk Reducing Skin Sparing - Left Exchange Cnc Machine Setter Tissue Breast - Bilateral Skin Plasty Tissue Rearrangement (De Epithelialized Inferior Autoderm Flap 71300) - Bilateral Bypass LymphovenousProphylactic(Psb) - Right with Dr. He and Dr. Gross. AMEENA Marin 10/16/23 1405 documented in this encounterNorthwestern Medical CenterGROU.PS08-16-2024 Instructions* Patient Instructions* Isabell Merrill RN - 10/16/2023 11:00 AM EDT Your surgery/procedure is scheduled at [facility] on 10-28-2023 at 7:30am Arrival Time 5:30am [facility] Address: [address] [place] [address], [address] [place] [address] in the Emergency Center Parking lot. Report to the front end loader operator in the Emergency/Surgery Registration lobby of the hospital. Please call Pre-Admission Clinic at [phone] if you have any questions prior to surgery. For questions the morning of surgery, please call the Pre-op Department at [phone]. Notify your SURGEON if you develop any [...] would like to schedule therapy at a [facility] facility, please call [phone] ([phone]). Do not use lotions, creams, powders, perfume, make up, cologne or after-shaves day of surgery. Remove ALL jewelry including wedding rings, body piercings, hair extensions that contain metal, nail malagasy, make-up, and contact lens. You may brush your teeth the morning of surgery, but do not swallow the water. Wear your dentures and partial plates to the hospital (no adhesive). Shower the night the before. If applicable, use the CHG (chlorhexidine gluconate) soap or wipes. Please be advised, [facility] has transitioned to a cashless payment [...] RIGHTS AND RESPONSIBILITIES As a patient at [facility], you have the right to: Receive medical care and be informed of who is taking care of you Be treated with dignity and respect Have a family member/registration representative of choice and your physician notified of your admission Receive information and actively participate in decisions about your care and treatment Refuse care, treatment and services Decide who may provide your support and speak for you Access orthodoxy and spiritual services Participate in ethical issues [...] of hospital charges and payment methods Patient/patient registration representative responsibilities are to: Provide information about [...] surgery in clean clothes. documented in this encounterVan [facility]ert [facility]08-14-2024 History of Present illness Narrative* KHLOE Yoder - 10/14/2023 11:59 PM EDT [employer] Social Work Corresponded regarding foundation assistance. - KHLOE Yoder 10/16/23 10:28 AM documented in this encounterVan Wert [facility] Hospital07-30-2024 History of Present illness Narrative* KHLOE Yoder - 09/29/2023 2:38 PM EDT PCI Social Work Corresponded with patient regarding foundation assistance. - KHLOE Yoder 09/29/23 2:40 PM documented in this encounterVan Wert County Hospital07-29-2024 Miscellaneous Notes* Telephone Encounter - Ana Ibrahim [...] EDT LM on VM documented in this encounterVan Wert [facility] Hospital07-29-2024 Telephone encounter Note* Telephone Encounter - Ana Ibrahim - 09/28/2023 11:06 AM EDT Can she set up wellness this year [facility]07-29-2024 Telephone encounter Note* Telephone Encounter - Ana Ibrahim - 09/28/2023 11:06 AM EDT Sent mychart msg [facility]07-29-2024 Telephone encounter Note* Telephone Encounter - [facility] Amosserg - 09/28/2023 11:06 AM EDT LM on VM [facility]07-29-2024 Telephone encounter Note* [facility]/28/2023 11:06 AM EDT LM on VM [facility]06-20-[facility] History of Present illness Narrative* KHLOE Yoder - 08/20/2023 11:59 PM EDT PCI Social Work *late entry* Met with patient per planned appointment. Patients significant other present as well. Dental Assisting Instructor explored needs, focusing on financial. Discussed options and resources. Await patient to provide health science writer with financial statements support request. - KHLOE Yoder 08/27/23 8:54 AM documented in this encounterVan Wert County Hospital06-20-2024 History of Present illness Narrative* Jhon Gross MD - 08/20/2023 10:00 AM EDT [facility] Plastic & Reconstructive Surgery [address] Office Jhon Gross MD, PhD Marisela Cuevas, PLANNING LEAD-APPARATUS ENGINEERING TECHNOLOGIST Shereen Smallwood PA-C Plastic Surgery New Patient Consultation Note Reason for visit : Chief Complaint Patient presents with Breast Cancer History of present illness: Ike Leigh Rondonchen 52 y.o. is here today to discuss [...] 60 min Stress: Stress Concern Present (02/27/2022) [employer] [place] [employer] - Occupational Stress Questionnaire Feeling of Stress : To some extent Social Connections: Socially Integrated (02/27/2022) Social Connection and Isolation Panel [NHANES] Frequency of Communication with Friends and Family: Twice a week Frequency of Social Gatherings with Friends and Family: Three times a week Attends Jehovah[employer] Witness Services: More than 4 times per year Active Member of Clubs or Organizations: Yes Attends Club or Organization Meetings: 1 to 4 times per year Marital Status: Interpersonal Safety: Unknown (05/28/2023) Received from [facility] Safety & Environment Fear of Current or [...] to chemo.). Gastrointestinal: Negative. Musculoskeletal: Negative. Skin: [place] coloration to right breast since chemo has [...] Her breast mass is palpable central breast. [place] discoloration to right breast with out induration. Right breast is more contracted up. Breast tissue is Intertriginous rash in inframammary folds absent. Shoulder grooves are present. MEASUREMENTS: Left Right Base width: 14.5 cm Sternal Notch to Nipple: 26 cm 23 cm IMF to Nipple: 6.5 cm 5 cm Nipple to Nipple 23 cm Nipple-areolar diameter 4 cm 4 cm Female cloth boil off machine operator present: yes. Impression : 1. Malignant neoplasm [...] this note were generated using voice recognition [employer] dictation software. Although every effort was made to ensure the accuracy of this automated control panel operator crude unit, some errors in control panel operator crude unit may have occurred. I, JHON GROSS MD, PHD personally performed the face to face evaluation on this patient. I discussed with the patient and confirmed the accuracy and completeness of the aforementioned history,and I personally performed the clinical examination of the patient. I have established and discussed the course of treatment with the patient. Jhon Gross MD, PhD [facility] Plastic & Reconstructive Surgery Total time spent was 50 minutes: Preparing to see the patient (e.g., review of tests) Obtaining and/or reviewing separately obtained history Performing a medically appropriate examination and/or evaluation Counseling and educating the patient/family/caregiver Ordering medications, tests, or procedures Referring and communicating with other health senior care provider (not separately reported) Documenting clinical information in the electronic or other health record Independently interpreting results (not separately reported) and communicating results to the patient/family/caregiver Care coordination (not separately reported) documented in this encounterVan Wert [facility] Hospital06-06-2024 History of Present illness Narrative* KHLOE Yoder - 08/06/2023 3:20 PM EDT PCI Social Work Patient returned writers phone call. Introduced self and explained role. Explored needs/concerns. Patient will be having surgery in the coming months after she completes her chemotherapy. Has concerns about finances as she will have time off of work and does not have short term disability. Dental Assisting Instructor/SW offered to meet with patient when she at [facility] for her next appointment on 08/19 to explore resources/assistance further. Patient agreed to this. Support provided. - KHLOE Yoder 08/06/23 3:24 PM documented in this encounterVan Wert County Hospital06-03-2024 History of Present illness Narrative* KHLOE Yoder - 08/03/2023 1:36 PM EDT PCI Social Work Referral- Dental Assisting Instructor followed up, placed call to patient. No answer. Dental Assisting Instructor left voicemail and call back number. - KHLOE Yoder 08/03/23 1:38 PM documented in this encounterVan Wert County Hospital05-30-2024 History of Present illness Narrative* Christy He MD - 07/30/2023 3:00 PM EDT Images from the original note were not included. 07/30/2023 DIAGNOSIS: Ike Flannery is a 52 y.o. female who presents to the Breast Surgery Clinic for evaluation and mid chemo discussion regarding her recently diagnosed right breast cancer, IDC grade 3, ER weakly+, MD -, Her 2 Negative (IHC score 0). [...] genetic testing? Yes Do you have Ashkenazi Rest[place] ancestry? No HEALTH HISTORY: The patient's past medical history, medications, and allergies have been reviewed in [facility]. PAST MEDICAL HISTORY: Past Medical History: [...] right breast of female, estrogen receptor positive ([facility]) Yes DIAGNOSIS: Ike Flannery is a 52 y.o. female with grade 3 right breast invasive carcinoma, ER weakly positive/MD negative, Her-2 negative, currently undergoing neoadjuvant chemotherapy [...] right breast of female, estrogen receptor positive ([facility]) Staging form: Breast, AJCC 8th Edition - Clinical: Stage IIIC (cT2, cN3, cM0, G3, ER+, MD-, HER2-) - Signed by Christy He MD [...] procedures Referring and communicating with other health senior care provider (not separately reported) Documenting clinical information in the electronic or other health record Independently interpreting results (not separately reported) and communicating results to the patient/family/caregiver Please note that portions of this note were generated using voice recognition M*Modal dictation software. Although every effort was made to ensure the accuracy of this automated control panel operator crude unit, some errors in control panel operator crude unit may have occurred. Christy He MD [facility] [phone] documented in this encounterVan Wert County Hospital03-21-2024 Miscellaneous Notes* Tumor Conference Note - Yue Tellez APRN-APPARATUS ENGINEERING TECHNOLOGIST - 05/21/2023 11:59 PM EDT Images from the original note were not included. Multidisciplinary Cancer Conference Center Note Patient Name: Ike Flannery : 1970 Conference Type:Breast Conference Date: 05/21/23 Patient's Care Team: Patient Care Team: Richie Hanna APRN-APPARATUS ENGINEERING TECHNOLOGIST as PCP - General Aarti Hope MD as Consulting Physician (Internal Medicine) Evan Thompson DO as Referring Physician (Obstetrics and Gynecology) Physicians in attendance: Dr. Melton - moderator Site/Laterality/Histology: 03/26/2023 U/S guided, right breast 4 o'clock, core biopsy ([facility]: re-read TTH): 11mm, invasive ductal carcinoma with areas of necrosis grade 3 score=8. LVI negative. ER12-15% MD- HER2/Yohan by IHC negative 0. Patient Presentation: patient palpated lump - - > abnormality seen on imaging; right axillary lymphadenopathy on CBE Cancer Staging Malignant neoplasm of lower-inner quadrant of right breast of female, estrogen receptor positive (CMS-HCC) Staging form: Breast, AJCC 8th Edition - Clinical: Stage IIIC (cT2, cN3, cM0, G3, ER+, MD-, HER2-) - Signed by Christy He MD [...] regarding trials, Please call Clinical Research at [phone] National Guidelines discussed (NCCN, AUA, NCI, etc): [...] can be directed to the Cancer Registry: [phone] documented [facility] Progress note* Tumor Conference Note - [...] guided, right breast 4 o'clock, [facility] 11mm, invasive ductal carcinoma with areas of necrosis grade 3 score=8. LVI negative. ER12-15% MD- HER2/Yohan by IHC negative 0. Patient Presentation: patient palpated lump - - > abnormality seen on imaging; right axillary lymphadenopathy on CBE Cancer Staging Malignant neoplasm of lower-inner quadrant of right breast of female, estrogen receptor positive (CMS-HCC) Staging form: Breast, AJCC 8th Edition - Clinical: Stage IIIC (cT2, cN3, cM0, G3, ER+, MD-, HER2-) - Signed by Christy He MD [...] regarding trials, Please call Clinical Research at [phone] National Guidelines discussed (NCCN, AUA, NCI, etc): [...] can be directed to the Cancer Registry: [phone] [employer] Work Phone: [phone]) 908-472203-14-2024 Miscellaneous Notes* Telephone Encounter - Niurka Stockton [...] Voices understanding. Support offered. [facility] Telephone encounter Note* Telephone Encounter - Niurka [...] at biopsy site. Voices understanding. Support offered. [facility]03-12[facility] Miscellaneous Notes* Telephone Encounter - Ike Irvin RN - 05/12/2023 7:51 AM EDT Notified Emliiana at Dr He office faxing over reports. documented in this encounterVan [facility] Telephone encounter Note* Telephone Encounter - Ike Irvin RN - 05/12/2023 7:51 AM EDT Notified Emiliana at Dr He office faxing over reports. [facility]03-08-[facility] History of Present illness Narrative* Niurka [...] of all information reviewed. documented in this encounterVan [facility]02-27-[facility] History of Present illness Narrative* Christy He MD - 04/28/2023 8:00 AM EST Images from the original note were not included. 04/28/23 DIAGNOSIS: Ike Flannery is a 52 y.o. female who presents to the Breast Surgery Clinic for evaluation and recommendations regarding her recently diagnosed right breast cancer, IDC grade 3, ER weakly +, MD -, Her 2 Negative (IHC score 0). [...] genetic testing? Yes Do you have Ashkenazi Rest[place] ancestry? No HEALTH HISTORY: The patient's past medical history, medications, and allergies have been reviewed in [facility]. PAST MEDICAL HISTORY: Past Medical History: [...] 3 right breast invasive carcinoma, ER weakly positive/MD negative, Her-2 negative. Cancer Staging No matching [...] Need right ax biopsy Referral placed to [facility] rad onc RV 3 months, PRS referral [...] procedures Referring and communicating with other health senior care provider (not separately reported) Documenting clinical information in the electronic or other health record Independently interpreting results (not separately reported) and communicating results to the patient/family/caregiver Please note that portions of this note were generated using voice recognition [employer] dictation software. Although every effort was made to ensure the accuracy of this automated control panel operator crude unit, some errors in control panel operator crude unit may have occurred. Christy He MD [facility] [phone] documented in this encounterVan [facility]ert [facility]02-01-2024 History of Present illness Narrative* Catie Walker, MAILS SUPERVISOR - 04/02/2023 11:30 AM EST Reason for Appointment: Patient ID: Ike Flannery is a 52 y.o. female who presents for abnormal test results (Discuss the results of her abnormal mammogram results done @ [facility]) Patient presents today for Consult appointment. Current [...] History: Diagnosis Date Cardiac dysrhythmia HTN (hypertension) ([facility]/HCC) Hypokalemia Migraine headache (CMS/HCC) Family History Adopted: [...] nursing note reviewed. Exam conducted with a cloth boil off machine operator present. Vitals: Estimated body mass [...] diagnostic right breast mammogram done at [facility] on 03/20/23. Results were highly suggestive of malignancy and radiology recommended that patient obtain an ultrasound guided breast biopsy. Patient had ultrasound guided right breast biopsy obtained at [facility] on 03/26/23, biopsy was sent to pathology at [facility]. Reviewed results with patient and discussed [...] patient that letter will be sent via [facility] and if patient does not hear from regulatory specialist by the time she receives letter to contact Specialist to schedule. Advised patient on VM to call office with any questions. --Catie Johnson LPN documented in this encounterSSM Health Cardinal Glennon Children's [id number] Hospital Discharge instructions Patient Education 07/14/2022 14:20:40 [...] numbers. This can be done either in [place] ([place] or metric measurements. Note that charts and online BMI calculators are available to help you find your BMI quickly and easily without having to do these calculations yourself. To calculate your BMI in [place] ([place] measurements: 1.Measure your weight in pounds [...] Centers for Disease Control and Prevention: www.cdc.gov [place] Heart Association: www.heart.org National Heart, Lung, and Blood [place]: www.nhlbi.nih.gov Summary Body mass index (BMI) is a number that is calculated from a person's weight and height. BMI may help estimate how much of a person's weight is composed of fat. BMI can help identify thosewho may be at higher risk for certain medical problems. BMI can be measured using [place] measurements or metric measurements. BMI charts are used to identify whether you are underweight, normal weight, overweight, or obese. This information is not intended to replace advice given to you by your health care provider. Make sure you discuss any questions you have with your health care provider. Document Revised: 11/09/2019 Document Reviewed: 09/16/2019 [employer] Patient Education 2022 BESOS. 07/14/2022 14:20:38 Upper Respiratory Infection, Adult Upper [...] medicines to help relieve symptoms, such as: Zzko-agx-rmgjrfv cold medicines. Cough suppressants. Coughing is a [...] and other clear broths. General instructions Take tuvv-oxn-nerpyeh and prescription medicines only as told by [...] and water are not available, use hand mental health program specialist. Avoid touching your mouth, face, eyes, [...] provider. Document Revised: 09/18/2021 Document Reviewed: 09/18/2021 [employer] Patient Education 2022 BESOS. Follow Up Care 07/14/2022 13:35:56 With:BRENNON JAMESON, BOBBY Sifuentes Address:Unknown When: Unknown [facility] 09-13-2022 History general Narrative - Reported* Type Description Date Medical History heart dysrythmia Medical History Night sweats Medical History Insomnia, unspecified type Medical History hypertension Surgical History hysterectomy dec 2003 Surgical History acl reconstruction right knee n ov 2004 Surgical History leg dec 2014 Hospitalization History see above [facility] Other 09-12-2022 Evaluation note* Encounter Date Diagnosis [...] weeks for the cough to go away [facility] Other [id number] Note [id number]06-28-2022 [id number]#1.00[facility] 08-26-2021 [facility] SURGERY Clinical Discharge Summary PERSON INFORMATION Name IKE FLANNERY Age 50 Years 1970 Sex FEMALE Language [place] PCP RANDY CALLE Marital Status [facility] Service Ambulatory Surgery Acct# Arrival 08/26/2021 11:01:00 Visit Reason SURGERY- LEFT KNEE SCOPE Acuity LOS 003 04:51 Address: [address] [place] [id number] Comment: PROVIDER INFORMATION VITALS INFORMATION Vital Sign Triage Latest Temp Oral Temp Temporal Temp Intravascular Temp Axillary Temp Rectal 02 Sat 100 % 97 % Respiratory Rate Peripheral Pulse Rate Apical Heart Rate Blood Pressure / 90 mmHg / 103 mmHg Comment: MEDICAL INFORMATION Allergy Info: Adhesive Bandage; Demerol Prescriptions Given: acetaminophen-hydrocodone (!-[place] 5 mg-325 mg oral tablet) 1 tab(s) [...] Oral every day. potassium chloride (Potassium Chloride (Qlh-Icke-Fon 10) 10 mEq oral tablet, extended release) 1 tab(s) Oral every day. traZODone (traZODone 50 mg oral tablet) 1 tab(s) Oral once a day (at bedtime). Medication List: Medications to Continue That Have Not Changed Other Medications acetaminophen-hydrocodone (!-[place] 5 mg-325 mg oral tablet) 1 tab(s) Oral Every 6 hours as needed as needed for pain. carvedilol (carvedilol 12.5 mg oral tablet) 1 tab(s) Oral 2 times a day. cyclobenzaprine (cyclobenzaprine 10 mg oral tablet) 1 tab(s) Oral At bedtime as needed for spasm. hydroCHLOROthiazide (hydroCHLOROthiazide 25 mg oral tablet) 1 tab(s) Oral every day. potassium chloride (Potassium Chloride (Ule-Sflm-Ikf 10) 10 mEq oral tablet, extended release) 1 tab(s) Oral every day. traZODone (traZODone 50 mg oral tablet) 1 tab(s) Oral once a day (at bedtime). Medications to Continue That Have Not Changed Other Medications acetaminophen-hydrocodone (!-[place] 5 mg-325 mg oral tablet) 1 tab(s) Oral Every 6 hours as needed as needed for pain. carvedilol (carvedilol 12.5 mg oral tablet) 1 tab(s) Oral 2 times a day. cyclobenzaprine (cyclobenzaprine 10 mg oral tablet) 1 tab(s) Oral At bedtime as needed for spasm. hydroCHLOROthiazide (hydroCHLOROthiazide 25 mg oral tablet) 1 tab(s) Oral every day. potassium chloride (Potassium Chloride (Bjt-Eaww-Shr 10) 10 mEq oral tablet, extended release) 1 tab(s) Oral every day. traZODone (traZODone 50 mg oral tablet) 1 tab(s) Oral once a day (at bedtime). Medications to Continue That Have Not Changed Other Medications acetaminophen-hydrocodone (!-[place] 5 mg-325 mg oral tablet) 1 tab(s) Oral Every 6 hours as needed as needed for pain. carvedilol (carvedilol 12.5 mg oral tablet) 1 tab(s) Oral 2 times a day. cyclobenzaprine (cyclobenzaprine 10 mg oral tablet) 1 tab(s) Oral At bedtime as needed for spasm. hydroCHLOROthiazide (hydroCHLOROthiazide 25 mg oral tablet) 1 tab(s) Oral every day. potassium chloride (Potassium Chloride (Lyb-Hvvr-Zda 10) 10 mEq oral tablet, extended release) [...] INFORMATION PATIENT EDUCATION INFORMATION Instructions: Knee Arthroscopy ([facility]) Follow up: DIAGNOSIS Internal derangement of left knee Comment: PHYS DOC [facility]06-16-2022 [facility] SURGERY Clinical Discharge Summary PERSON INFORMATION Name IKE FLANNERY Age 50 Years 1970 Sex FEMALE Language [place] PCP RANDY CALLE Marital Status Med Service Ambulatory Surgery Acct# Arrival Visit Reason SURGERY - LEFT KNEE SCOPE Acuity LOS 010 03:19 Address: [address] [place] [address] Comment: PROVIDER INFORMATION VITALS INFORMATION Vital Sign [...] Oral every day. potassium chloride (Potassium Chloride (Gzg-Bcqp-Snh 10) 10 mEq oral tablet, extended release) 1 tab(s) Oral every day. traZODone (traZODone 50 mg oral tablet) 1 tab(s) Oral once a day (at bedtime). Medication List: Medications That Were Updated - Follow Below Instructions Other Medications Updated: potassium chloride (Potassium Chloride (Aua-Rgfk-Bdr 10) 10 mEq oral tablet, extended release) [...] Other Medications Updated: potassium chloride (Potassium Chloride (Mta-Qgjp-Pef 10) 10 mEq oral tablet, extended release) [...] Other Medications Updated: potassium chloride (Potassium Chloride (Beq-Ntix-Zfk 10) 10 mEq oral tablet, extended release) [...] Follow up: With: Address: When: MYESHA VINSON [address] [place] [address], [place] [address] Business (1) 09/03/2021 9:15 AM With: Address: When: RANDY CALLE [facility] [place] [address] Business (1) Type Location Start [facility] Lab Collection (MAGR) LAB 08/21/2021 4:00 PM 08/21/2021 4:10 PM Confirmed Surgery (MAGR) [facility] Main OR 08/26/2021 1:00 PM 08/26/2021 1:30 PM Confirmed DIAGNOSIS Comment: PHYS DOC [facility]11-24-2021 Note [id number] [id number] 01-21-2021 [facility] SURGERY Clinical Discharge Summary PERSON INFORMATION Name IKE FLANNERY Age 50 Years 1970 Sex FEMALE Language [place] PCP RANDY CALLE Marital Status Med Service Ambulatory Surgery Acct# Arrival 01/21/2021 06:05:01 Visit Reason SURGERY - RIGHT KNEE ARTHROSCOPY Acuity LOS 032 23:00 Address: [address] [facility] [address] Comment: PROVIDER INFORMATION VITALS INFORMATION Vital Sign [...] INFORMATION Instructions: Reny- Post Op K[facility] Arthroscopy ([facility]) Follow up: With: Address: When: MYESHA VINSON [address], [address] [place], [place] [address] Business (1) 01/30/2021 11:00 AM With: Address: When: [place], [place] [id number] Business (1) DIAGNOSIS Internal derangement of right knee; Tear of meniscus of right knee Comment: PHYS DOC [facility]11-19-2021 NoteSpoke to pt on phone regarding upcoming procedure. pt aware to be here at 6am, NPO after midnight, and need for ride after procedure. pt verbalizes understanding. [Electronically Signed on: 01/18/2021 11:03 EST] Jen Khoury RN [Verified on: 01/18/2021 11:03 EST] Jen [facility]hour[facility] No data available for this section [facility] Evaluation + Plan note Future Appointments Appointment Date:04/10/2023 03:20:00 PM Scheduled Provider:Sandrita WILLETT MD Location:[facility] [address]ointment Type[address] note[address] assessment information available [facility] Work Phone: Evaluation note* Diagnosis Mammogram abnormal Abnormal mammogram, unspecified Invasive ductal carcinoma of breast, right (CMS/HCC) [facility]* Diagnosis Onset Date Resolution Status Breast cancer, right acute [facility] Work Phone: Evaluation note* Diagnosis Onset Date Resolution Status Breast cancer, right acute Breast cancer, right acute [facility] Work Phone: Evaluation note* Diagnosis Onset Date Resolution Status Breast cancer, right acute Breast cancer, right acute Breast cancer, right acute [facility] Work Phone: Evaluation note* Diagnosis Retinal tear of right eye- Primary Vitreous hemorrhage of right eye (CMS/HCC) Vitreous hemorrhage documented in this encounter [facility]* Diagnosis Adverse effect of doxycycline, initial encounter- Primary documented in this encounter [facility]* Diagnosis Anaphylaxis, subsequent encounter- Primary documented in this encounter [facility]* Diagnosis Encounter to discuss procedure documented in this encounter [facility]* Diagnosis Pre-op examination H/O malignant neoplasm of breast documented in this encounter [facility]* Diagnosis Encounter for postoperative care- Primary S/P breast reconstruction, bilateral Mycobacterium abscessus infection Breast wound, left, sequela [facility]* Diagnosis Sensorineural hearing loss (SNHL) of both ears- Primary documented in this encounter [facility]* Diagnosis Encounter for postoperative care- Primary Seroma of breast S/P breast reconstruction, bilateral Mycobacterium abscessus infection Breast wound, left, sequela documented [facility]* Diagnosis Malignant neoplasm of lower-inner quadrant of right breast of female, estrogen receptor positive (CMS-HCC)- Primary Pelvic mass in female documented in this encounter [facility]* Diagnosis Malignant neoplasm of lower-inner quadrant of right breast of female, estrogen receptor positive (CMS-HCC)- Primary [facility] Diagnosis Malignant neoplasm of lower-inner quadrant of right breast of female, estrogen receptor positive (CMS-HCC) [facility]* Diagnosis Malignant neoplasm of lower-inner quadrant of right breast of female, estrogen receptor positive (CMS-HCC)- Primary Mass of lower inner quadrant of right breast Malignant neoplasm of lower-inner quadrant of right breast of female, estrogen receptor positive (CMS-HCC) [facility]* Diagnosis 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 documented in this encounter [facility]* Diagnosis Encounter for postoperative care- Primary Malignant neoplasm of lower-inner quadrant of right breast of female, estrogen receptor positive (CMS-HCC) Acquired absence of breast, bilateral S/P breast reconstruction, bilateral documented in this encounter [facility]* Diagnosis 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 documented in this encounter [facility]* Diagnosis MIRNA (acute kidney [...] site after procedure documented in this encounter [facility]* Diagnosis Encounter for postoperative care- Primary S/P breast reconstruction, bilateral Malignant neoplasm of lower-inner quadrant of right breast of female, estrogen receptor positive (CMS-HCC) Acquired absence of breast, bilateral documented in this encounter [facility]* Diagnosis Encounter for postoperative care- Primary Acquired absence of breast, bilateral S/P breast reconstruction, bilateral Infection of breast implant, subsequent encounter documented in this encounter [facility]* Diagnosis Malignant neoplasm of lower-inner quadrant of right breast of female, estrogen receptor positive (CMS-HCC)- Primary documented in this encounter [facility]* Diagnosis Encounter for postoperative care- Primary Malignant neoplasm of lower-inner quadrant of right breast of female, estrogen receptor positive (CMS-HCC) Acquired absence of breast, bilateral S/P breast reconstruction, bilateral documented in this encounter [facility]* Diagnosis Encounter for postoperative care- Primary Acquired absence of breast, bilateral S/P breast reconstruction, bilateral documented in this encounter [facility]* Diagnosis Encounter for postoperative care- Primary Acquired absence of breast, bilateral documented in this encounter [facility]* Diagnosis Infection of deep incisional surgical site after procedure, subsequent encounter- Primary Malignant neoplasm of lower-inner quadrant of right breast of female, estrogen receptor positive (CMS-HCC) documented in this encounter [facility]* Diagnosis Encounter for postoperative care- Primary Acquired absence of breast, bilateral S/P breast reconstruction, bilateral Infection of breast implant, subsequent encounter documented in this encounter [facility]* Diagnosis Cellulitis of left breast- Primary S/P breast reconstruction, bilateral documented in this encounter [facility]* Diagnosis Encounter for postoperative care- Primary Seroma of breast S/P breast reconstruction, bilateral Breast wound, left, sequela documented in this encounter [facility]* Diagnosis Postoperative follow-up Follow-up examination, following unspecified surgery documented in this encounter [facility]* Diagnosis Mycobacterium abscessus infection- Primary S/P breast reconstruction, bilateral Malignant neoplasm of lower-inner quadrant of right breast of female, estrogen receptor positive (CMS-HCC) documented in this encounter [facility]* Diagnosis Postoperative visit- Primary Mycobacterium abscessus infection S/P breast reconstruction, bilateral Malignant neoplasm of lower-inner quadrant of right breast of female, estrogen receptor positive ([facility]-HCC) documented in this encounter [facility]* Diagnosis Breast wound, left, sequela- Primary documented in this encounter [facility]* Diagnosis Encounter for postoperative care- Primary Breast wound, left, sequela Seroma of breast Mycobacterium abscessus infection S/P breast reconstruction, bilateral documented in this encounter [facility]* Diagnosis Well woman exam with routine gynecological exam Routine gynecological examination Breast cancer screening by mammogram Postmenopausal state Asymptomatic postmenopausal status (age-related) (natural) [facility] Diagnosis Malignant neoplasm of lower-inner quadrant of right breast of female, estrogen receptor positive (CMS-HCC)- Primary Pelvic mass in female documented in this encounter [facility]* Diagnosis Encounter for postoperative care- Primary Breast wound, left, sequela Erythema of breast Seroma of breast Mycobacterium abscessus infection S/P breast reconstruction, bilateral Acquired absence of breast, bilateral History of breast cancer Personal history of malignant neoplasm of breast documented in this encounter [facility]* Diagnosis Encounter for postoperative care- Primary Breast wound, left, sequela documented in this encounter [facility]* Diagnosis Encounter for postoperative care- Primary Seroma of breast S/P breast reconstruction, bilateral Breast wound, left, sequela [facility] Diagnosis Pelvic mass in female- Primary [facility] Diagnosis Encounter for postoperative care- Primary Seroma of breast Breast wound, left, sequela Mycobacterium abscessus infection S/P breast reconstruction, bilateral documented [facility] this encounter [facility] [place] [facility]* Diagnosis Encounter for postoperative care- Primary Seroma of breast Breast wound, left, sequela S/P breast reconstruction, bilateral documented in this encounter [facility] [place] [facility]* Diagnosis Encounter for postoperative care- Primary Breast wound, left, sequela S/P breast reconstruction, bilateral Mycobacterium abscessus infection documented in this encounter [facility] [place] [facility]* Diagnosis Malignant neoplasm of lower-inner quadrant of right breast of female, estrogen receptor positive (CMS-HCC)- Primary Mycobacterium abscessus infection Essential hypertension Unspecified essential hypertension Acute deep vein thrombosis (DVT) of calf muscle vein of left lower extremity (CMS-HCC) S/P right heart catheterization [facility] [place] [facility] Diagnosis Pelvic mass in female- Primary [facility] [place] [facility]* Diagnosis Abscess- Primary Cellulitis and abscess of unspecified site 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 [facility] [place] [facility] Diagnosis Mycobacterium abscessus infection- Primary Malignant neoplasm of lower-inner quadrant of right breast of female, estrogen receptor positive (CMS-HCC) documented [facility] [place] [facility]* Diagnosis Breast wound, left, sequela- Primary Complicated wound infection [facility] [place] [facility] Diagnosis Breast wound, left, sequela- Primary Complicated wound infection [facility] [place] [facility]* Diagnosis Breast wound, left, sequela- Primary Mycobacterium abscessus infection Complicated wound infection [facility] [place] [facility]* Diagnosis 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 documented [facility] this [facility] [place] [facility]* Diagnosis Secondary malignant neoplasm of brain (HCC)- Primary Secondary malignant neoplasm of brain and spinal cord [facility] [place] [facility] Diagnosis 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)- Primary [facility] Diagnosis 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 [facility] Diagnosis 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 [facility] [place] [facility]* Diagnosis Breast wound, left, sequela- Primary Infection of deep incisional surgical site after procedure, subsequent encounter Malignant neoplasm of lower-inner quadrant of right breast of female, estrogen receptor positive (CMS-HCC) Mycobacterium abscessus infection S/P breast reconstruction, bilateral [facility] Diagnosis Breast cancer metastasized to liver, unspecified laterality (HCC)- Primary [facility] [place] [facility] Diagnosis Breast cancer metastasized to liver, unspecified laterality (HCC)- Primary Encounter for medication monitoring Encounter for therapeutic drug monitoring [facility] this [facility] [place] [facility]* Diagnosis Post-operative state- Primary Other postprocedural status S/P breast reconstruction Breast replaced by other means History of breast cancer Personal history of malignant neoplasm of breast [facility] [place] [facility]* Diagnosis Reactive depression- Primary Anxiety Anxiety state, unspecified [facility] Diagnosis Breast wound, left, sequela- Primary Infection of deep incisional surgical site after procedure, subsequent encounter [facility]* Diagnosis 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 She denies medication side effects. -[facility] DO Work Phone: History of Present illness Narrative* AMEENA Kennedy - 07/06/2024 10:30 AM EDT Images from the original note were not included. [facility] Plastic & Reconstructive Surgery [address] Office Jhon Gross MD, PhD Marisela Cuevas, ROBER-ESPERANZA Smallwood PA-C Plastic Surgery Progress Note Reason for visit : post-op History of present illness: Ike Flannery is a 53 y.o. female with a history of right breastcancer status post bilateral skin sparing mastectomies (He) and tissue putty mixer reconstruction in 10/28/2023. Her postoperative course was complicated by an infected seroma of her left breast requiring operative washout and tissue putty mixer removal 11/27/23. Intraoperative cultures demonstrated growth of [...] her left breast with removal of her port a catheterization. Patient was previously evaluated in our office on 05/18/2024. She states after last office appointment she was admitted to the due to complications with her IV antibiotics. She was discharged in stable condition. Patient again was admitted to the hospital for concerns or left chest erythema on 06/10/24. Our service was consulted and she underwent I&D of her left chest wall infection on 06/13/24. Her intraoperative cultures were again postive for AFB. She was discharged home in stable condition on 06/16/24.Infectious disease has been managing her IV ABX. She recently had a PET scan which revealed a liver lesion. She is awaiting consult at [facility] for IR guided biopsy as well as consult at the mycobacteriumclinic at [facility]. She presents our office today for wound check. She states that she is doing well. She was scheduledfor biopsy of her liver lesion today . Patient unfortunately did not hold her apixaban. Biopsy was rescheduled to Thursday. She states that she is doing well. She feels like the wound is improving. Sheis continuing with b.I.d. wet-to-dry dressing changes. The patient is doing well postoperatively. The patient denies fever, chills, redness or drainage from surgical wound(s). Is procedure Review of Systems: Denies surgical site concerns. All other symptoms negative except as noted in HPI. Physical Examination: Vitals: 07/06/24 0849 BP: 144/90 Pulse: 71 Body mass index is 26.36 kg/m . GENERAL: no acute distress, well developed, well nourished. LYMPHATIC: no upper extremity lymphedema NEUROLOGIC: alert and oriented to time, place and person. PSYCH: judgement and insight good, mood/affect full range. Focused examination : Left chest wound remains present. Wound bed with pink granulation tissue. No surrounding erythema. No necrosis noted. No ballotable fluid collections palpated. No purulent drainage. No signs of infection. Impression: 1. Encounter for postoperative care 2. Seroma of breast 3. Breast wound, left, sequela 4. S/P breast reconstruction, bilateral Recommendations: Discussed with patient that she continues to do well. Discussed that the wound is continuing to heal. We will maintain b.I.d. wet-to-dry dressing changes at this time. Continue with IV antibiotics per Infectious Disease. Okay to proceed with scheduled liver biopsy on Thursday. Follow-up after her liver biopsy for wound check. She was advised to call our office any questions or concerns in the interim. - AMEENA Rand 07/06/24 9:49 AM Please note that portions of this note were generated using voice recognition M*Modal dictation software. Although every effort was made to ensure the accuracy of this automated control panel operator crude unit, some errors in control panel operator crude unit may have occurred. AMEENA Kennedy 07/06/24 0949 documented [facility] Dis[facility] instructions No data available for this section [facility] Dis[facility] instructionsAmbulatory Orders* RISE Order Location: None Selected [facility] Work Phone: InstructionsNot on filedocumented in [...] on filedocumented in this encounter [facility]* Pre-Procedure Instructions - Hortencia Ludwig RN - 05/12/2024 2:45 PM EDT Your surgery/procedure is scheduled at [facility] on 05/26/2024 at 1015 Arrival Time 0815 [facility] Address: [address] [place] [address] in [address] Parking lot located on [facility]. Report to the Entrance B. Check in at the information desk the surgery. The waiting room located on the second floor. If you have any questions prior to surgery, please call Pre-Admission Clinic at [phone] between 7:30 am and 4:30 pm Thursday through Thursday. If you have questions the morning of surgery, please call the Pre-op Department at [phone]. Notify your SURGEON if you develop any illness such as a cold, cough, fever, sore throat, vomiting or are hospitalized between now and your surgery. Medication Instructions (Do not stop your medications without consulting the prescribing physician). Take the following medications the morning of surgery with a sip of water: Gabapentin, Metoprolol Diabetic or Weight loss medications: HOLD na LAST DOSE Na Take inhalers as prescribed the morning of surgery. Due to the risk associated with these medications. If these medications are not held per instruction below, your surgery is at an increased risk for cancellation. SGLT2 Medications- Hold 3 days prior to [...] before surgery, unless otherwise instructed by your surgeon. Clear liquids are: water, sports drinks such as Gatorade or G2, or apple juice. You may NOT have: tube feedings, dairy products, alcoholic beverages, orange juice, or any liquids with solids or pulp in it. If applicable, shower again with CHG soap the morning of your surgery. If you received a green plastic bracelet, bring it with you the day of surgery and your nurse will put it on you. In order to help prevent infection post-operatively, you may be asked to use a CHG mouthwash when you arrive to the Pre-op area. Your nurse will provide instruction the morning of. What do I need to do to prepare for surgery? If you will be going home the same day as your surgery, arrange for an adult over [address] Riding in a bus or taxi by yourself is not permitted. You should not smoke or drink alcohol 24 hours before your surgery. Alcohol thins the blood and may cause bleeding problems during surgery. Smoking increases the risk of breathing problems after surgery. Do not use lotions, creams, powders, perfume, make up, cologne or after-shaves day of surgery. Remove ALL jewelry including wedding rings, body piercings (including dermal piercings ,hair extensions that contain metal, nail malagasy, make-up, and contact lens. You may brush your teeth the morning of surgery, but do not swallow the water. Wear your dentures and partial plates to the hospital (no adhesive). Shower the night the before. If applicable, use the CHG (chlorhexidine gluconate) soap or wipes What should I bring to the hospital? [...] of these instructions conflict with those you received from the surgeon, please seek clarification from your surgeon's office. DEEP BREATHING EXERCISES This exercise helps promote good air exchange and helps to prevent pneumonia after surgery. Breathe in slowly and deeply through the nose. Hold your breath for a few seconds and then exhale slowly through the mouth. Repeat this three times and then cough.Coughing helps to clear your lungs. If you have had a surgery with an incision into your abdomen or chest, press gently against your incision with a pillow or a folded blanket when you cough. Please be aware - it may not be altamirano to cough following some types of surgeries involving the eyes,ears, sinuses and throat. Always follow your doctor's instructions. LEG EXERCISE These exercises help promote good circulation and [...] day and early evening. SURGICAL SITE INFECTION PREVENTION What is a Surgical Site Infection? [...] RIGHTS AND RESPONSIBILITIES As a patient at [facility], you have the right to: Receive medical care and be informed of who is taking care of you Be treated with dignity and respect Have a family member/registration representative of choice and your physician notified of your admission Receive information and actively participate in decisions about your care and treatment Refuse care, treatment and services Decide who may provide your support and speak for you Access orthodoxy and spiritual services Participate in ethical issues [...] of hospital charges and payment methods Patient/patient registration representative responsibilities are to: Provide information about health status to facilitate care, treatment and services Follow the treatment, plan, keep appointments and speak up when you do not understand the plan Respect the rights of other patients and healthcare personnel Follow organizational rules and regulations that support quality care and a safe environment Fulfill financial obligations as promptly as possible PATIENT RIGHTS AND RESPONSIBILITIES As a patient at [facility], you have the right to: Receive medical care and be informed of who is taking care of you Be treated with dignity and respect Have a family member/registration representative of choice and your physician notified of your admission Receive information and actively participate in decisions about your care and treatment Refuse care, treatment and services Decide who may provide your support and speak for you Access orthodoxy and spiritual services Participate in ethical issues [...] of hospital charges and payment methods Patient/patient registration representative responsibilities are to: Provide information about health status to facilitate care, treatment and services Follow the treatment, plan, keep appointments and speak up when you do not understand the plan Respect the rights of other patients and healthcare personnel Follow organizational rules and regulations that support quality care and a safe environment Fulfill financial obligations as promptly as possible Surgical Site Infection Prevention What is a Surgical Site Infection? Infection [...] Control department if you have any questions. [facility] System[facility]ructionsNot on filedocumented in this [...] on filedocumented in this encounter [facility] SystemM[facility] Notes* Pre-Procedure Instructions - Hortencia Ludwig RN - 05/12/2024 2:45 PM EDT Your surgery/procedure is scheduled at [facility] on 05/26/2024 at 1015 Arrival Time 0815 [facility] Address: [address] [place] [address] in [address]1 Parking lot located on [facility]. Report to the Entrance B. Check in at the information desk the surgery. The waiting room located on the second floor. If you have any questions prior to surgery, please call Pre-Admission Clinic at [phone] between 7:30 am and 4:30 pm Thursday through Thursday. If you have questions the morning of surgery, please call the Pre-op Department at [phone]. Notify your SURGEON if you develop any illness such as a cold, cough, fever, sore throat, vomiting or are hospitalized between now and your surgery. Medication Instructions (Do not stop your medications without consulting the prescribing physician). Take the following medications the morning of surgery with a sip of water: Gabapentin, Metoprolol Diabetic or Weight loss medications: HOLD na LAST DOSE Na Take inhalers as prescribed the morning of surgery. Due to the risk associated with these medications. If these medications are not held per instruction below, your surgery is at an increased risk for cancellation. SGLT2 Medications- Hold 3 days prior to [...] before surgery, unless otherwise instructed by your surgeon. Clear liquids are: water, sports drinks such as Gatorade or G2, or apple juice. You may NOT have: tube feedings, dairy products, alcoholic beverages, orange juice, or any liquids with solids or pulp in it. If applicable, shower again with CHG soap the morning of your surgery. If you received a green plastic bracelet, bring it with you the day of surgery and your nurse will put it on you. In order to help prevent infection post-operatively, you may be asked to use a CHG mouthwash when you arrive to the Pre-op area. Your nurse will provide instruction the morning of. What do I need to do to prepare for surgery? If you will be going home the same day as your surgery, arrange for an adult over [address] Riding in a bus or taxi by yourself is not permitted. You should not smoke or drink alcohol 24 hours before your surgery. Alcohol thins the blood and may cause bleeding problems during surgery. Smoking increases the risk of breathing problems after surgery. Do not use lotions, creams, powders, perfume, make up, cologne or after-shaves day of surgery. Remove ALL jewelry including wedding rings, body piercings (including dermal piercings ,hair extensions that contain metal, nail malagasy, make-up, and contact lens. You may brush your teeth the morning of surgery, but do not swallow the water. Wear your dentures and partial plates to the hospital (no adhesive). Shower the night the before. If applicable, use the CHG (chlorhexidine gluconate) soap or wipes What should I bring to the hospital? [...] of these instructions conflict with those you received from the surgeon, please seek clarification from your surgeon's office. DEEP BREATHING EXERCISES This exercise helps promote good air exchange and helps to prevent pneumonia after surgery. Breathe in slowly and deeply through the nose. Hold your breath for a few seconds and then exhale slowly through the mouth. Repeat this three times and then cough.Coughing helps to clear your lungs. If you have had a surgery with an incision into your abdomen or chest, press gently against your incision with a pillow or a folded blanket when you cough. Please be aware - it may not be altamirano to cough following some types of surgeries involving the eyes,ears, sinuses and throat. Always follow your doctor's instructions. LEG EXERCISE These exercises help promote good circulation and [...] day and early evening. SURGICAL SITE INFECTION PREVENTION What is a Surgical Site Infection? [...] RIGHTS AND RESPONSIBILITIES As a patient at [facility], you have the right to: Receive medical care and be informed of who is taking care of you Be treated with dignity and respect Have a family member/registration representative of choice and your physician notified of your admission Receive information and actively participate in decisions about your care and treatment Refuse care, treatment and services Decide who may provide your support and speak for you Access orthodoxy and spiritual services Participate in ethical issues [...] of hospital charges and payment methods Patient/patient registration representative responsibilities are to: Provide information about health status to facilitate care, treatment and services Follow the treatment, plan, keep appointments and speak up when you do not understand the plan Respect the rights of other patients and healthcare personnel Follow organizational rules and regulations that support quality care and a safe environment Fulfill financial obligations as promptly as possible PATIENT RIGHTS AND RESPONSIBILITIES As a patient at [facility], you have the right to: Receive medical care and be informed of who is taking care of you Be treated with dignity and respect Have a family member/registration representative of choice and your physician notified of your admission Receive information and actively participate in decisions about your care and treatment Refuse care, treatment and services Decide who may provide your support and speak for you Access orthodoxy and spiritual services Participate in ethical issues [...] of hospital charges and payment methods Patient/patient registration representative responsibilities are to: Provide information about health status to facilitate care, treatment and services Follow the treatment, plan, keep appointments and speak up when you do not understand the plan Respect the rights of other patients and healthcare personnel Follow organizational rules and regulations that support quality care and a safe environment Fulfill financial obligations as promptly as possible Surgical Site Infection Prevention What is a Surgical Site Infection? Infection [...] Control department if you have any questions. documented in [facility] No data available for this section [facility] Progress note Author Quincy Colbert [facility] December 29, 2023 11:28am Note Date/Time December 29, 2023 1 1:28am [facility] [place] [address] Cancer Center Note Signed Patient: Ike Flannery MR#: [id number] : 1970 Acct:[id number] Age/Sex: 53 / F Type: REG AMB [...] the right breast. ER negative (weakly positive) MD negative HER2 negative. She received neoadjuvant chemotherapy [...] 3. LVSI negative. ER 12 to 15% MD negative HER2 negative by IHC. 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 ER weakly positive MD negative HER2 negative. April 17, 2023 PET [...] 2023 patient's case was presented at the [facility] tumor board. Recommendations were for PET [...] bilateral skin sparing mastectomies with prepectoral tissue putty mixer placement. Left breast shows diffuse fibrocystic change [...] cellulitis with an infected seroma. Left tissue putty mixer removed. She has been on ertapenem and [...] recently saw her plastic surgeon and tissue putty mixer on right has been filled. Intake Intake Visit Reasons: Follow Up Prior to CT-SIM Allergies meperidine Allergy (Unknown, Unverified 11/11/21 18:32) Unknown Reaction, anaphylaxis [facility] Medical History Medical History (Updated 09/30/23 [...] air Breast: Exam now shows left tissue putty mixer surgically absent. Port has been accessed for IV antibiotics. Right tissue putty mixer quite full exam shows skin to be tense with surgical incisions well-healed MSK: Demonstrates good range of motion of the right shoulder with external rotation. Results - [facility] (Rad Onc) LAB RESULTS No Data to Display Dictated By: Quincy Colbert MD DD/ 27 Signed By: <Electronically signed by Quincy Colbert MD> 12/29/231127 [facility] Work Phone: Reason for referral (narrative)* Consultation (Routine) - Pending Review Specialty Diagnoses / Procedures Referred By Contac t Referred To Contact Behavioral Health / Oncology Diagnoses Malignant neoplasm of lower-inner quadrant of right breast of female, estrogen receptor positive (CMS-HCC) Christy He MD [address] [place] [phone] [facility] Med Onc [address] [facility] [address] [place] [address] Referral ID Status Reason Start Date Expiration Date Visits Requested Visits Authorized [id number] Pending Review Specialty Services Required 07/30/2023 07/29/2024 1 1 * Consultation (Routine) - Pending Review Specialty Diagnoses / Procedures Referred By Contac t Referred To Contact Radiation Oncology Diagnoses Malignant neoplasm of lower-inner quadrant of right breast of female, estrogen receptor positive (CMS-HCC) Christy He MD [address] [place] [phone] Dany Diop MD [address] [place] [address] Referral ID Status Reason Start Date Expiration Date Visits Requested Visits Authorized [id number] Pending Review Specialty Services Required 07/30/2023 07/29/2024 1 1 * Diagnostic Imaging (Routine) - Pending Review Specialty Diagnoses / Procedures [facility] Referred To Contact Radiology Diagnoses Malignant neoplasm of lower-inner quadrant of right breast of female, estrogen receptor positive (CMS-HCC) Procedures MR bilateral breast with and without contrast with CAD Christy He MD [address] [place] [phone] Referral ID Status Reason Start Date Expiration Date V isits Requested Visits Authorized [id number] Pending Review 07/30/2023 07/29/2024 1 1 * Consultation (Routine) - Pending Review Specialty Diagnoses / Procedures Referred By Contact Referred To Contact Plastic & Reconstructive Surgery Diagnoses Malignant neoplasm of lower-inner quadrant of right breast of female, estrogen receptor positive (CMS-HCC) [place] [address] [place] [phone] [facility] Plastic Surg-Sug[address] [place] [address] Referral ID Status Reason Start Date Expiration Date Visits Requested Visits Authorized [id number] Pending Review Specialty Services Required 07/30/2023 07/29/2024 1 1 [facility] for referral (narrative)* Consultation (Routine) - Pending Review Specialty Diagnoses / Procedures Referred By Contac t Referred To Contact Radiation Oncology Diagnoses Malignant neoplasm of lower-inner quadrant of right breast of female, estrogen receptor positive (CMS-HCC) Christy He MD [address] [place] [phone] Dany Diop MD [address] [facility] [place] [address] Referral ID Status Reason Start Date Expiration Date Visits Requested Visits Authorized [id number] Pending Review Specialty Services Required 04/28/2023 04/27/2024 1 1 * Diagnostic Imaging (Emergency) - Pending Review Specialty Diagnoses / Procedures Referred By Contac t Referred To Contact Radiology Diagnoses Malignant neoplasm of lower-inner quadrant of right breast of female, estrogen receptor positive (CMS-HCC) Procedures MR bilateral breast with and without contrast with CAD Christy He MD [address] [place] [phone] Referral ID Status Reason Start Date Expiration Date V isits Requested Visits Authorized [id number] Pending Review 04/28/2023 04/27/2024 1 1 [facility] Consultation (Urgent) - Pending Review Specialty Diagnoses / Procedures Referred By Contac t Referred To Contact Infectious Disease Diagnoses Acid fast bacillus Gino Flower APRN-APPARATUS ENGINEERING TECHNOLOGIST [address] [facility] [address] [address] Mathew Serrato, [address] [place] [phone] Referral ID Status Reason Start Date Expiration Date Visits Requested Visits Authorized [id number] Pending Review Specialty Services Required 12/03/2023 12/02/2024 1 1 [facility] Consultation (Urgent) - Pending Review Specialty Diagnoses / Procedures Referred By Contac t Referred To Contact Infectious Disease Diagnoses 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 Gino Flower APRN-CNP [address] [facility] [address] [address] Herman Lui, DO [address] [place] [address] Referral ID Status Reason Start Date Expiration Date Visits Requested Visits Authorized [id number] Pending Review Specialty Services Required 12/08/2023 12/07/2024 1 1 [facility] N[facility]* Auth/Cert (Routine) Specialty Diagnoses / Procedures Referred By Contac t Referred To Contact ADMITTING Diagnoses 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] Procedures STEREOTACTIC RADIOSURGERY 1 COMPLEX CRANIAL LES RADIATION DELIVERY STEREOTACTIC CRANIAL COBALT STEREOTACTIC RADIOSURGERY 1 COMPLEX CRANIAL LESION RADIATION [place] STEREOTACTIC RADIOSURGERY (SRS) [place] CRANIAL LESION(S) 1 SESSION MULTI-SOURCE COBALT Anesthesia [address] [phone] Referral ID Status Reason Start Date Expiration Date Visits Re quested Visits Authorized [id number] 1 1 [facility] Summary Purpose Family History No Family [...] Records Found Date Activated Date Inactivated Comments 06/11/2024 1:36 AM 06/15/2024 8:27 PM Date Activated Date Inactivated Comments 05/02/2024 6:38 PM 05/13/2024 3:07 PM Date Activated Date Inactivated Comments 12/02/2023 11:16 PM 12/09/2023 6:06 PM Date Activated Date Inactivated Comments 10/29/2023 6:33 AM 10/29/2023 2:40 PM Date Activated Date Inactivated Comments 05/02/2024 6:38 PM 05/13/2024 3:07 PM Date Activated Date Inactivated Comments 12/02/2023 [...] 6:06 PM Date Activated Date Inactivated Comments 05/02/2024 6:38 PM Date Activated Date Inactivated Comments 06/11/2024 1:36 AM Date Activated Date Inactivated Comments 08/26/2024 2:51 PM 09/01/2024 5:08 PM Question Answer Comments Full Code Order Discussed With: Patient and Surr ogate Decision Maker Surrogate Decision Maker Name: Jean Carlos Becker Surrogate Decision Maker Relationship: Spouse Date Activated Date Inactivated Comments 08/26/2024 2:51 PM 09/01/2024 5:08 PM Question Answer Comments Full Code Order Discussed With: Patient and Surr ogate Decision Maker Surrogate Decision Maker Name: Jean Carlos Becker Surrogate Decision Maker Relationship: Spouse Date Activated Date Inactivated Comments 06/11/2024 1:36 AM 06/15/2024 8:27 PM Date Activated Date Inactivated Comments 05/02/2024 6:38 PM 05/13/2024 3:07 PM Date Activated Date Inactivated Comments 12/02/2023 11:16 PM 12/09/2023 6:06 PM Date Activated Date Inactivated Comments 10/29/2023 6:33 AM 10/29/2023 2:40 PM Chief Complaint * Patient in office for bp check due to hypertension/edema. Patient states edema has resolved. Tolerating the med changes well. Patient bp reviewed per r benny renae. * V.O per Dr. Shnaon Tyler MD / R Amir RN increase [...] Reason for Visit Chief Complaint Admit Date 1 Month Follow Up, Right Breast Cancer J anuary 2024 2:42pm Unknown April 07, 2024 9 :54am Follow Up, Right Breast April 26, 2 025 2:57pm S21.002S lf breast wound May 19 3:21pm C50.311 Z79.899 D70.1 R11.2 Z31.11 June 03, 2024 9:54am Reason for Visit Admit Date Breast cancer, right March 14, 2024 2:42pm Breast cancer, right April 26, 2024 2:57pm Chief Complaint Admit Date Right Breast Cancer February 01, 2024 8 :25am Right Breast Cancer February 08, 2024 8 :18am Referred by Dr. 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 Colbert February 10, 024 2:21pm 1 Month Follow Up, Right [...] 8:00am Referred by Dr. Colbert February 10 024 [...] Referral Specialty Diagnoses / Procedures Referred By Contgeorgia t Referred To Contact Procedures Discharge Follow-Up Amy Singh MD [address], [address] [phone] Referral ID Status Reason Start Date Expiration Date V isits Requested Visits Authorized [id number] Pending Review 12/09/2023 12/08/2024 1 1 Referral ID Status Reason Start Date Expiration Date V isits Requested Visits Authorized [id number] Pending Review 12/09/2023 12/08/2024 1 1 Specialty Diagnoses / Procedures Referred By Contac t Referred To Contact Diagnoses Infection of deep incisional surgical site after procedure, initial encounter Infection of deep incisional surgical site after procedure, subsequent encounter Procedures Follow-up with primary care provider Amy Singh MD [address], [address] [phone] Referral ID Status Reason Start Date Expiration Date V isits Requested Visits Authorized [id number] Pending Review 12/09/2023 12/08/2024 1 1 Specialty Diagnoses / Procedures Referred By Contac t Referred To Contact Procedures Adult diet Amy Singh MD [address], [facility] [address] [place] [address] Referral ID Status Reason Start Date Expiration Date V isits Requested Visits Authorized [id number] Pending Review 12/09/2023 12/08/2024 1 1 Additional Source Comments INFORMATION SOURCE (unrecogn ized section and content) DATE CREATED AUTHOR 07/28/2021 [facility] dical Specialist DATE CREATED AUTHOR AUTHOR'S ORGANIZ ATION 09/22/2021 [facility] DATE CREATED AUTHOR AUTHOR'S ORGANIZ ATION 12/01/2021 [facility] DATE CREATED AUTHOR AUTHOR'S ORGANIZ ATION 01/04/2022 [facility] DATE CREATED AUTHOR AUTHOR'S ORGANIZ ATION 09/30/2022 [facility] DATE CREATED AUTHOR AUTHOR'S ORGANIZ ATION 10/01/2022 [facility] DATE CREATED AUTHOR AUTHOR'S ORGANIZ ATION 10/17/2022 [facility] DATE CREATED AUTHOR AUTHOR'S ORGANIZ ATION 03/03/2024 [facility] DATE CREATED AUTHOR AUTHOR'S ORGANIZ ATION 05/23/2024 [facility] DATE CREATED AUTHOR AUTHOR'S ORGANIZ ATION 05/27/2024 [facility] DATE CREATED AUTHOR AUTHOR'S ORGANIZ ATION 05/29/2024 [facility] DATE CREATED AUTHOR AUTHOR'S ORGANIZ ATION 05/30/2024 [facility] DATE CREATED AUTHOR AUTHOR'S ORGANIZ ATION 05/31/2024 [facility] DATE CREATED AUTHOR AUTHOR'S ORGANIZ ATION 06/04/2024 [facility] dical Specialists EPIC DATE CREATED AUTHOR AUTHOR'S ORGANIZ ATION 08/13/2024 [facility] DATE CREATED AUTHOR AUTHOR'S ORGANIZ ATION 09/02/2024 [facility] DATE CREATED AUTHOR AUTHOR'S ORGANIZ ATION 10/08/2024 [facility] DATE CREATED AUTHOR AUTHOR'S ORGANIZ ATION 10/12/2024 [facility] DATE CREATED AUTHOR AUTHOR'S ORGANIZ ATION 10/15/2024 [facility] DATE CREATED AUTHOR AUTHOR'S ORGANIZ ATION 10/17/2024 [facility] DATE CREATED AUTHOR AUTHOR'S ORGANIZ ATION 10/18/2024 [facility] REASON FOR VISIT (unrecogniz ed section and content) Reason Comments Radiology CT Specialty Diagnoses / Procedures Referred By Jose olmedo Referred To Contact ADMITTING Diagnoses 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] Procedures STEREOTACTIC RADIOSURGERY 1 COMPLEX CRANIAL LES RADIATION DELIVERY STEREOTACTIC CRANIAL COBALT STEREOTACTIC RADIOSURGERY 1 COMPLEX CRANIAL LESION RADIATION TX STEREOTACTIC RADIOSURGERY (SRS) [place] CRANIAL LESION(S) 1 SESSION MULTI-SOURCE COBALT Anesthesia [address] [phone] Referral ID Status Reason Start Date Expiration Date Visits Re quested Visits Authorized [id number] 1 1 Reason Comments abnormal test results Discuss the result s of her abnormal mammogram results done @ [facility] Reason Comments Spots and/or Floaters Flashes, Light [...] receptor positive (CMS-HCC) Christy He MD [address] [facility] [address] [place] [address] [facility] Pl[facility] S[facility]Sugg [address] [place] [address] [address] [place] [address] Referral ID Status Reason Start Date Expiration Date Visits Requested Visits Authorized [id number] Pending Review Specialty Services Required 07/30/2023 07/29/2024 1 1 Reason Comments Med Refill Reason Comments Consult Newly dx Specialty Diagnoses / Procedures Referred By Jose olmedo Referred To Contact Breast Surgery Diagnoses Mass of lower inner quadrant of right breast Richie Hanna, PLANNING LEAD-APPARATUS ENGINEERING TECHNOLOGIST [address] [place] [address] [place] [address] [place] [phone] Referral ID Status Reason Start Date Expiration Date V isits Requested Visits Authorized [id number] Pending Review 03/23/2023 03/22/2024 1 1 Reason [...] her port since then and saw Dr. Gross today. Patient states she started having a low grade fever and chills and was sent by infectious disease tonight Specialty Diagnoses / Procedures Referred By Jose olmedo Referred To Contact Diagnoses MIRNA (acute kidney injury) ([facility]) Nimo Meza MD [address] [place] [address] Referral ID Status Reason Start Date Expiration Date Visits Re quested Visits Authorized [id number] 1 1 Reason Onset Date Comments Transition Of Care 12/11/2023 Reason Comments Post-op Reason Comments Post-op Visit Reason Onset Date Comments Procedure 05/23/2024 Reason Comments Well Women Visit Reason Onset Date Comments Breast Problem 06/10/2024 Reason Onset Date Comments Care Navigation 06/16/2024 Reason Comments Post-op Left breast I& D, Reason Comments Follow-up Reason Comments Post-op follow up s/p I&D le ft breast Reason Comments New Patient Evaluation 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 Reason Comments - July 29 debrievement of left breast tissue Reason Comments Recheck Reason Comments Procedure [facility] Specialty Diagnoses / Procedures Referred By Jose olmedo Referred To Contact ADMITTING Diagnoses 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] Procedures STEREOTACTIC RADIOSURGERY 1 COMPLEX CRANIAL LES RADIATION DELIVERY STEREOTACTIC CRANIAL COBALT STEREOTACTIC RADIOSURGERY 1 COMPLEX CRANIAL LESION RADIATION TX STEREOTACTIC RADIOSURGERY (SRS) TX CRANIAL LESION(S) 1 SESSION MULTI-SOURCE COBALT Anesthesia [address] [address] Referral ID Status Reason Start Date Expiration Date Visits Re quested Visits Authorized [id number] 1 1 Reason Comments Radiology MRI Reason Comments Established Patient Reason Comments Post Op Follow Up Reason Onset Date Comments Med Refill 09/19/2024 Patient Care team informatio n (unrecognized section [...] St art: April 26, 2024 Team Status: Active Member Role Status Dates Randy EsterDO zach Primary Care Provider Active Start: May 01, 2024 Mookie Buchanan DO Attending Provider Active Sta rt: May 01, 2024 Team Status: Active Member Role Status Dates Randy Calle DO Primary Care Provider Active Start: May 19, 2024 Shereen Smallwood PA-C Attending Prov ider, Referring Provider Active Start: May 19, 2024 Team Status: Inactive Member Role Status Dates Randy Calle DO Primary Care Provider Active Start: June 03, 2024 End: June 03, 2024 Aarti Hope MD Attending Provider Active St art: June 03, 2024 End: June 03, 2024 Team Status: Active Member Role Status Dates Randy EsterDO zach Primary Care Provider Active Start: January 27, 2024 Mookie Buchanan DO Attending Provider Active Sta rt: January 27, 2024 Team Status: Active Member Role Status Dates Randy EsterDO zach Primary Care Provider Active Start: February 01, 2024 Quincy Colbert MD Attending Provid er, Other Provider Active Start: February 01, 2024 Aarti Hope MD Referring Provider Active St art: February 01, 2024 Team Status: Active Member Role Status Dates Randy EsterDO zach Primary Care Provider Active Start: February 08, 2024 Quincy Colbert MD Attending Provid er, Other Provider Active Start: February 08, 2024 Aarti Hope MD Referring Provider Active St art: February 08, 2024 Team Status: Inactive Member Role Status Dates Randy EsterDO zach Primary Care Provider Active Start: February 11, 2024 End: February 11, 2024 Sandrita Perez MD Attending Provider Active Sta rt: February 11, 2024 End: February 11, 2024 Team Status: Inactive Member Role Status Dates Randy EsterDO zach Primary Care Provider Active Start: October 01, [...] 2023 End: March 26, 2023 GUY Khan PUZZLE ASSEMBLER-C Attending Provider Active Start: March 26, 2023 End: March 26, 2023 Document Advisor Relationship Specialty Start Date End Date Randy Calle MD [address], [facility] [place] [address] PCP - General Family Medicine 04/02/23 Document Advisor Relationship Specialty Start Date End Date Randy Calle MD [address] [facility] [place] [address] PCP - General Family Medicine 04/02/23 Document Advisor Relationship Specialty Start Date End Date Randy Calle MD [address] [place] [address] PCP - General Family Medicine 04/02/23 Document Advisor Relationship Specialty Start Date End Date Randy Calle MD [address] [place] [address] PCP - General Family Medicine 04/02/23 Document Advisor Relationship Specialty Start Date End Date Randy Calle MD [address] [place] [address] PCP - General Family Medicine 04/02/23 Document Advisor Relationship Specialty Start Date End Date Randy Calle MD [address] [place] [address] PCP - General Family Medicine 04/02/23 Document Advisor Relationship Specialty Start Date End Date Randy Calle MD [address] [place] [address] PCP - General Family Medicine 04/02/23 Document Advisor Relationship Specialty Start Date End Date Randy Calle MD [address] [place] [address] PCP - General Family Medicine 04/02/23 Document Advisor Relationship Specialty Start Date End Date Richie Hanna APRN-APPARATUS ENGINEERING TECHNOLOGIST [address] [place] [address] PCP - General 11/28/16 Document Advisor Relationship Specialty Start Date End Date Richie Hanna PLANNING LEAD-APPARATUS ENGINEERING TECHNOLOGIST [address] [place] [address] PCP - General 11/28/16 Document Advisor Relationship Specialty Start Date End Date Richei Hanna, PLANNING LEAD-APPARATUS ENGINEERING TECHNOLOGIST [address] [place] [address] PCP - General 11/28/16 Document Advisor Relationship Specialty Start Date End Date Randy Calle MD [address] [facility] [address] PCP - General Family Medicine 04/02/23 Team Status: Active Member Role Status Dates Randy Calle DO Primary Care Provider Active Start: December 29, 2023 Quincy Colbert MD [facility], Other Provider Active Start: December 29, [...] January 14, 2024 Quincy Colbert MD [facility], Other Provider Active Start: January 14, 2024 Aarti Hope MD Referring Provider Active St art: January 14, 2024 Team Status: Active Member Role Status Dates Randy Calle DO Primary Care Provider Active Start: January 19, 2024 Quincy Colbert MD [facility], Other Provider Active Start: January 19, 2024 Aarti Hope MD Referring Provider Active St art: January 19, 2024 Team Status: Active Member Role Status Dates Randy Calle DO Primary Care Provider Active Start: February 10, 2024 Quincy Colbert MD Attending Provider Active Start: February 10, 2024 Aarti Hope MD Referring Provider Active St art: February 10, 2024 Document Advisor Relationship Specialty Start Date End Date Richie Hanna PLANNING LEAD-APPARATUS ENGINEERING TECHNOLOGIST [address] [place] [address] PCP - General 11/28/16 Document Advisor Relationship Specialty Start Date End Date Richie Hanna PLANNING LEAD-APPARATUS ENGINEERING TECHNOLOGIST [address] [place] [address] PCP - General 11/28/16 Document Advisor Relationship Specialty Start Date End Date Richie Hanna PLANNING LEAD-APPARATUS ENGINEERING TECHNOLOGIST [address] [place] [address] PCP - General 11/28/16 Document Advisor Relationship Specialty Start Date End Date Richie Hanna, PLANNING LEAD-APPARATUS ENGINEERING TECHNOLOGIST [address] [place] [address] PCP - General 11/28/16 Document Advisor Relationship Specialty Start Date End Date Richie Hanna, PLANNING LEAD-APPARATUS ENGINEERING TECHNOLOGIST [address] [place] [address] PCP - General 11/28/16 Document Advisor Relationship Specialty Start Date End Date Richie Hanna, PLANNING LEAD-APPARATUS ENGINEERING TECHNOLOGIST [address] [place] [address] PCP - General 11/28/16 Document Advisor Relationship Specialty Start Date End Date Richie Hanna PLANNING LEAD-APPARATUS ENGINEERING TECHNOLOGIST [address] [place] [address] PCP - General 11/28/16 Document Advisor Relationship Specialty Start Date End Date Richie Hanna PLANNING LEAD-APPARATUS ENGINEERING TECHNOLOGIST [address] [place] [address] PCP - General 11/28/16 Document Advisor Relationship Specialty Start Date End Date Richie Hanna PLANNING LEAD-APPARATUS ENGINEERING TECHNOLOGIST [address] [place] [address] PCP - General 11/28/16 Document Advisor Relationship Specialty Start Date End Date Richie Hanna PLANNING LEAD-APPARATUS ENGINEERING TECHNOLOGIST [address] [place] [address] PCP - General 11/28/16 Document Advisor Relationship Specialty Start Date End Date Richie Hanna PLANNING LEAD-APPARATUS ENGINEERING TECHNOLOGIST [address] [place] [address] PCP - General 11/28/16 Document Advisor Relationship Specialty Start Date End Date Richie Hanna PLANNING LEAD-APPARATUS ENGINEERING TECHNOLOGIST [address] [place] [address] PCP - General 11/28/16 Document Advisor Relationship Specialty Start Date End Date Richie Hanna PLANNING LEAD-APPARATUS ENGINEERING TECHNOLOGIST [address] [place] [address] PCP - General 11/28/16 Document Advisor Relationship Specialty Start Date End Date Richie Hanna PLANNING LEAD-APPARATUS ENGINEERING TECHNOLOGIST [address] [place] [address] PCP - General 11/28/16 Document Advisor Relationship Specialty Start Date End Date Richie Hanna PLANNING LEAD-APPARATUS ENGINEERING TECHNOLOGIST [address] [place] [address] PCP - General 11/28/16 Document Advisor Relationship Specialty Start Date End Date Richie Hanna PLANNING LEAD-APPARATUS ENGINEERING TECHNOLOGIST [address] [place] [address] PCP - General 11/28/16 Document Advisor Relationship Specialty Start Date End Date Richie Hanna PLANNING LEAD-APPARATUS ENGINEERING TECHNOLOGIST [address] [place] [address] PCP - General 11/28/16 Document Advisor Relationship Specialty Start Date End Date Richie Hanna, PLANNING LEAD-APPARATUS ENGINEERING TECHNOLOGIST [address] [place] [address] PCP - General 11/28/16 Document Advisor Relationship Specialty Start Date End Date Richie Hanna, PLANNING LEAD-APPARATUS ENGINEERING TECHNOLOGIST [address] [place] [address] PCP - General 11/28/16 Document Advisor Relationship Specialty Start Date End Date Richie Hanna, PLANNING LEAD-APPARATUS ENGINEERING TECHNOLOGIST [address] [place] [address] PCP - General 11/28/16 Document Advisor Relationship Specialty Start Date End Date Richie Hanna, PLANNING LEAD-APPARATUS ENGINEERING TECHNOLOGIST [address] [place] [address] PCP - General 11/28/16 Document Advisor Relationship Specialty Start Date End Date Richie Hanna, PLANNING LEAD-APPARATUS ENGINEERING TECHNOLOGIST [address] [place] [address] PCP - General 11/28/16 Document Advisor Relationship Specialty Start Date End Date Richie Hanna, PLANNING LEAD-APPARATUS ENGINEERING TECHNOLOGIST [address] [place] [address] PCP - General 11/28/16 Document Advisor Relationship Specialty Start Date End Date Richie Hanna, PLANNING LEAD-APPARATUS ENGINEERING TECHNOLOGIST [address] [place] [address] PCP - General 11/28/16 Document Advisor Relationship Specialty Start Date End Date Randy Calle MD [address] [place] [address] PCP - General Family Medicine 04/02/23 Document Advisor Relationship Specialty Start Date End Date Richie Hanna, PLANNING LEAD-APPARATUS ENGINEERING TECHNOLOGIST [address] [place] [address] PCP - General 11/28/16 Document Advisor Relationship Specialty Start Date End Date Randy Calle MD PCP - General Family Medicine 04/02/23 Document Advisor Relationship Specialty Start Date End Date Randy Calle MD PCP - General Family Medicine 04/02/23 Document Advisor Relationship Specialty Start Date End Date Randy Calle MD PCP - General Family Medicine 04/02/23 Team Status: Inactive Member Role Status Dates Randy Calle DO Primary Care Provider Active Start: May 19, 2024 End: May 19, 2024 Shereen Smallwood PA-C Attending Prov ider, Referring Provider Active Start: May 19, 2024 End: May 19, 2024 Document Advisor Relationship Specialty Start Date End Date Richie Hanna APRN-ESPERANZA [address] [place] [address] PCP - General 11/28/16 Document Advisor Relationship Specialty Start Date End Date Richie Hanna APRN-APPARATUS ENGINEERING TECHNOLOGIST [address] [place] [address] PCP - General 11/28/16 Document Advisor Relationship Specialty Start Date End Date Richie Hanna APRN-APPARATUS ENGINEERING TECHNOLOGIST [address] [place] [address] PCP - General 11/28/16 Document Advisor Relationship Specialty Start Date End Date Kaye Manuel, ESPERANZA [address] [place] [address] PCP - General Family Medicine 06/14/24 Gino Flower APRN 57[address] [facility] [address] [place] [address] 12/04/23 Aarti Hope MD [address] [place] [address] Referring Hematology/Oncology 06/14/24 Shereen Smallwood PA-C [address] [address] [facility] Referring Orthopedics 06/15/24 Document Advisor Relationship Specialty Start Date End Date Richie Hanna APRN-APPARATUS ENGINEERING TECHNOLOGIST [address] [place] [address] PCP - General 11/28/16 Document Advisor Relationship Specialty Start Date End Date Richie Hanna PLANNING LEAD-APPARATUS ENGINEERING TECHNOLOGIST [address] [place] [address] PCP - General 11/28/16 Document Advisor Relationship Specialty Start Date End Date Richie Hanna, PLANNING LEAD-APPARATUS ENGINEERING TECHNOLOGIST [address] [place] [address] PCP - General 11/28/16 Document Advisor Relationship Specialty Start Date End Date Richie Hanna PLANNING LEAD-APPARATUS ENGINEERING TECHNOLOGIST [address] [place] [address] PCP - General 11/28/16 Document Advisor Relationship Specialty Start Date End Date Richie Hanna PLANNING LEAD-APPARATUS ENGINEERING TECHNOLOGIST [address] [place] [address] PCP - General 11/28/16 Document Advisor Relationship Specialty Start Date End Date Kaye Manuel, APPARATUS ENGINEERING TECHNOLOGIST [address] [place] [address] PCP - General Family Medicine 06/14/24 Gino Flower APRN [address] [facility] [address] [address] 12/04/23 Aarti Hope MD [address] [place] [address] Referring Hematology/Oncology 06/14/24 Shereen Smallwood PA-C [address] [place] [address] [place] Referring Orthopedics 06/15/24 Document Advisor Relationship Specialty Start Date End Date Kaye Manuel, APPARATUS ENGINEERING TECHNOLOGIST [address] [place] [address] PCP - General Family Medicine 06/14/24 Gino Flower, PLANNING LEAD 57[address] [facility] [address] [address] 12/04/23 Aarti Hope MD [address] [facility] [place] [address] Referring Hematology/Oncology 06/14/24 Shereen Smallwood PA-C [address] [place] [address] [place] Referring Orthopedics 06/15/24 Document Advisor Relationship Specialty Start Date End Date Kaye Manuel, APPARATUS ENGINEERING TECHNOLOGIST [address] [place] [address] PCP - General Family Medicine 06/14/24 Gino Flower, PLANNING LEAD 57[address] [facility] [address] [address] 12/04/23 Aarti Hope MD [address] [facility] [place] [address] Referring Hematology/Oncology 06/14/24 Shereen Smallwood PA-C [address] [place] [address] [facility] Referring Orthopedics 06/15/24 Document Advisor Relationship Specialty Start Date End Date Kevin Hannamayte Thomas PLANNING LEAD-APPARATUS ENGINEERING TECHNOLOGIST [address] [place] [address] PCP - General 11/28/16 Document Advisor Relationship Specialty Start Date End Date JacquesRichie, PLANNING LEAD-APPARATUS ENGINEERING TECHNOLOGIST [address] [place] [address] PCP - General 11/28/16 Document Advisor Relationship Specialty Start Date End Date Kaye Manuel, APPARATUS ENGINEERING TECHNOLOGIST [address] [place] [address] PCP - General Family Medicine 06/14/24 Gino Flower APRN [address] [facility] [address] [address] 12/04/23 Aarti Hope MD [address] [place] [address] Referring Hematology/Oncology 06/14/24 Shereen Smallwood PA-C [address] [facility] [address] [place] [address] [facility] Referring Orthopedics 06/15/24 [place] [address] [place] [address] Specialty Industrial Controller Hematology/Oncology 07/31/24 Document Advisor Relationship Specialty Start Date End Date Kaye Manuel, APPARATUS ENGINEERING TECHNOLOGIST [address] [place] [address] PCP - General Family Medicine 06/14/24 Gino Flower APRN [address] [facility] [address] [address] 12/04/23 Aarti Hope MD [address] [place] [address] Referring Hematology/Oncology 06/14/24 Shereen Smallwood PA-C [address] [facility] [address] [place] [address] [facility] Referring Orthopedics 06/15/24 [place] [address] [place] [address] Specialty Industrial Controller Hematology/Oncology 07/31/24 Document Advisor Relationship Specialty Start Date End Date Kaye Manuel, APPARATUS ENGINEERING TECHNOLOGIST [address] [place] [address] PCP - General Family Medicine 06/14/24 Gino Flower, ROBER 57[address] [facility] [address] [address] 12/04/23 Aarti Hope MD [address] [place] [address] Referring Hematology/Oncology 06/14/24 Shereen Smallwood PA-C [address] [facility] [address] [place] [address] [facility] Referring Orthopedics 06/15/24 [place] [address] [place] [address] Specialty Industrial Controller Hematology/Oncology 07/31/24 Document Advisor Relationship Specialty Start Date End Date Kaye Manuel CNP [address] [place] [address] PCP - General Family Medicine 06/14/24 Gino Flower APRN [address] [facility] [address] [address] 12/04/23 Aarti Hope MD [address] [place] [address] Referring Hematology/Oncology 06/14/24 Shereen Smallwood, DAYTONC [address] [place] [address] [address] [place] [address] [facility] Referring Orthopedics 06/15/24 [place] [address] [place] [address] Specialty Industrial Controller Hematology/Oncology 07/31/24 Document Advisor Relationship Specialty Start Date End Date Kaye Manuel CNP [address] [place] [address] PCP - General Family Medicine 06/14/24 Gino Flower APRN 57[address] [facility] [address] [place] [address] 12/04/23 Aarti Hope MD [address] [facility] [place] [address] Referring Hematology/Oncology 06/14/24 Shereen Smallwood PA-C [address] [facility] [address] [facility] [place] [address] [facility] Referring Orthopedics 06/15/24 [place] [address] [place] [address] Specialty Industrial Controller Hematology/Oncology 07/31/24 Document Advisor Relationship Specialty Start Date End Date Kaye Manuel, APPARATUS ENGINEERING TECHNOLOGIST [address] [place] [address] PCP - General Family Medicine 06/14/24 Gino Flower APRN 57[address] [facility] [address] [place] [address] 12/04/23 Aarti Hope MD [address] [place] [address] Referring Hematology/Oncology 06/14/24 Shereen Smallwood PA-C [address] [facility] [address] [facility] [place] [address] [facility] Referring Orthopedics 06/15/24 [place] [address] [place] [address] Specialty Industrial Controller Hematology/Oncology 07/31/24 Document Advisor Relationship Specialty Start Date End Date Kaye Manuel CNP [address] [place] [address] PCP - General Family Medicine 06/14/24 Gino Flower APRN 57[address] [facility] [address] [place] [address] 12/04/23 Aarti Hope MD [address] [place] [address] Referring Hematology/Oncology 06/14/24 Shereen Smallwood PA-C [address] [facility] [address] [place] [address] [facility] Referring Orthopedics 06/15/24 [place] [address] [address] [place] [id number] Specialty Industrial Controller Hematology/Oncology 07/31/24 Document Advisor Relationship Specialty Start Date End Date Richie Hanna APRN-APPARATUS ENGINEERING TECHNOLOGIST [address] [place] [address] PCP - General 11/28/16 Document Advisor Relationship Specialty Start Date End Date Kaye Manuel, APPARATUS ENGINEERING TECHNOLOGIST [address] [place] [address] PCP - General Family Medicine 06/14/24 Gino Flower APRN 57[address] [facility] [address] [address] 12/04/23 Aarti Hope MD [address] [place] [address] Referring Hematology/Oncology 06/14/24 Shereen Smallwood PA-C [address] [facility] 280 [facility] [place] [address] [facility] Referring Orthopedics 06/15/24 [place] [address] [place] [address] Specialty Industrial Controller Hematology/Oncology 07/31/24 Document Advisor Relationship Specialty Start Date End Date Kaye Manuel, APPARATUS ENGINEERING TECHNOLOGIST [address] [place] [address] PCP - General Family Medicine 06/14/24 Gino Flower APRN 57[address] [facility] [address] [place] [address] 12/04/23 Aarti Hope MD [address] [place] [address] Referring Hematology/Oncology 06/14/24 Shereen Smallwood PA-C [address] [place] [address] [address] [place] [address] [facility] Referring Orthopedics 06/15/24 [place] [address] [place] [address] Specialty Industrial Controller Hematology/Oncology 07/31/24 Document Advisor Relationship Specialty Start Date End Date Kaye Manuel, APPARATUS ENGINEERING TECHNOLOGIST [address] [place] [address] PCP - General Family Medicine 06/14/24 Gino Flower APRN 57[address] [facility] [address] [place] [address] 12/04/23 Aarti Hope MD [address] [place] [address] Referring Hematology/Oncology 06/14/24 Shereen Smallwood PA-C [address] [facility] [address] [place] [address] [facility] Referring Orthopedics 06/15/24 [place] [address] [place] [address] Specialty Industrial Controller Hematology/Oncology 07/31/24 Document Advisor Relationship Specialty Start Date End Date Richie Hanna APRN-APPARATUS ENGINEERING TECHNOLOGIST [address] [place] [address] PCP - General 11/28/16 Document Advisor Relationship Specialty Start Date End Date Kaye Manuel, ESPERANZA [address] [place] [address] PCP - General Family Medicine 06/14/24 Gino Flower APRN 57[address] [facility] [address] [place] [address] 12/04/23 Aarti Hope MD [address] [place] [address] Referring Hematology/Oncology 06/14/24 Shereen Smallwood PA-C [address] [facility] [address] [place] [address] [facility] Referring Orthopedics 06/15/24 [place] [address] [place] [address] Specialty Industrial Controller Hematology/Oncology 07/31/24 Document Advisor Relationship Specialty Start Date End Date Richie Hanna APRN-APPARATUS ENGINEERING TECHNOLOGIST [address] [place] [address] PCP - General 11/28/16 Document Advisor Relationship Specialty Start Date End Date Richie Hanna APRN-APPARATUS ENGINEERING TECHNOLOGIST [address] [place] [address] PCP - General 11/28/16 Document Advisor Relationship Specialty Start Date End Date Richie Hanna NP [address] [place] [address] PCP - General Family Medicine 09/27/24 Gino Flower APRN [address] [facility] [address] [address] 12/04/23 Aarti Hope MD [address] [place], [place] [address] Referring Hematology/Oncology 06/14/24 Shereen Smallwood PA-C [address] [facility] [address] [place] [address] [facility] Referring Orthopedics 06/15/24 [place] [address] [place] [id number] Specialty Industrial Controller Hematology/Oncology 07/31/24 Document Advisor Relationship Specialty Start Date End Date Richie Hanna NP [address] [place] [address] PCP - General Family Medicine 09/27/24 Gino Flower APRN 57[address] [facility] [address] [place] [address] 12/04/23 Aarti Hope MD [address] [place] [address] Referring Hematology/Oncology 06/14/24 Shereen Smallwood PA-C [address] [facility] [address] [place] [address] [facility] Referring Orthopedics 06/15/24 [place] [address] [place] [address] Specialty Industrial Controller Hematology/Oncology 07/31/24 Document Advisor Relationship Specialty Start Date End Date Richie Hanna APRN-[facility] [address] [place] [address] PCP - General 11/28/16 Document Advisor Relationship Specialty Start Date End Date Richie Hanna NP [address] [place] [address] PCP - General Family Medicine 09/27/24 Gino Flower APRN [address] [facility] [address] [place] [address] 12/04/23 Aarti Hope MD [address] [place] [address] Referring Hematology/Oncology 06/14/24 Shereen Smallwood PA-C [address] [facility] [address] [place] [address] [facility] Referring Orthopedics 06/15/24 [place] [address] [place] [address] Specialty Industrial Controller Hematology/Oncology 07/31/24 Goals (unrecognized section and content) Goals may be documented in a n alternate section Scheduled Active and Recently Administ ered Medications (unrecognized section and content) Medication Order 12/07/2023 12/08/2023 12/09/2023 apixaban (ELIQUIS) tablet 5 mg 5 mg, oral, 2 times daily, First dose on [place] 12/03/23 at 0045, Indication: Acute VTE Treatment, Indications: deep venous thrombosis 0741 (Given - Provider: Corrina Richardson RN)2139 (Given - Provider: Aliza Benito [...] warnings of fluoroquinolones. 0743 (Given - Provider: Corrina Richardson RN) ciprofloxacin HCl (CIPRO) tablet 500 [...] Thu12/03/23 at 1200, Indication: Nontuberculous mycobacterial infection (metropolitan editor drug) 0743 (Given - Provider: Corrina Richardson RN)2138 (Given - Provider: Aliza Benito RN) 927 (Given - Provider: Claudia Masterson LPN)2054 (Given - Provider: Aliza Benito RN) 917 (Given - Provider: Kahlil Gregorio RN) cyanocobalamin tablet 1,000 mcg 1,000 mcg, oral, Daily, First dose on Thu12/06/23 at 0900 0742 (Given - Provider: Corrina Richardson RN) 09 (Given - Provider: Claudia [...] ulceration., Indication: Skin and soft tissue infection 0917 (Given - Provider: Kahlil Gregorio RN) hydrocortisone [...] is REQUIRED to use this drug at [facility], [facility] and [facility] per [facility]-approved policy # MM 1.15: Yes 1004 (New Bag - Provider: Corrina Richardson RN)1034 (Stop Bag - Provider: Corrina Richardson RN)2149 (New Bag - Provider: Aliza Benito RN)2219 (Stop Bag - Provider: Aliza Benito RN) 1136 (New Bag - Provider: Claudia Masterson LPN - Comment: waiting for pharmacy to send)1206 (Stop Bag - Provider: Claudia Masterson LPN)2311 (New Bag - Provider: Aliza Beinto RN)2341 (Stop Bag - Provider: Aliza Benito RN) 1124 (New Bag - Provider: Kahlil Gregorio RN)1154 (Stop Bag - Provider: Kahlil Gregoiro RN) iron sucrose (VENOFER) 200 mg in [...] medications available. 0900 (New Bag - Provider: Corrina Richardson RN)0915 (Stop Bag - Provider: Corrina Richardson RN) magnesium oxide (MAGOX) tablet 400 mg 400 mg, oral, 2 times daily, First dose on 12/05/23 at 2100 0741 (Given - Provider: Corrina Richardson RN)2139 (Given - Provider: Aliza Benito RN) 927 (Given - Provider: Claudia Masterson LPN)2054 (Given - Provider: Aliza Benito RN) 09 (Given - Provider: Kahlil Gregorio RN) methylPREDNISolone [...] crush or chew. 0742 (Given - Provider: Corrina Richardson RN)2138 (Given - Provider: Aliza Benito RN) 927 (Given - Provider: Claudia Masterson LPN)2054 (Given - Provider: Aliza Benito RN) 09 (Given - Provider: Kahlil Gregorio RN) potassium chloride (KLOR-CON M 20) CR tablet 20 mEq 20 mEq, oral, Daily, First dose on Thu12/06/23 at 0900, Hold for potassium more than 4.5 Do not crush or chew. 0738 (Given - Provider: Corrina Richardson RN) 09 (Given - Provider: Claudia Masterson LPN) 0917 (Given - Provider: Kahlil Gregorio RN) sodium chloride 0.9 % flush 3 mL 3 mL, intravenous, Every 12 hours scheduled, First dose on Thu12/02/23 at 2320 0744 (Given - Provider: Corrina Richardson RN)2308 (Given - Provider: Aliza Benito [...] is REQUIRED to use this drug at [facility], [facility] and [facility] per [facility]-approved policy # MM 1.15: Yes, 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 0736 (New Bag - Provider: Corrina Richardson RN - Comment: was waiting on pharmacy)08 (Stop Bag - Provider: Corrina Richardson RN) Continuous Medication Order 12/07/2023 12/08/2023 12/09/2023 lactated ringers infusion (CANCELED) 100 mL/hr, intravenous, Continuous, Starting on [place] 12/03/23 at 1415 0145 (New Bag - Provider: Aliza Benito RN)0450 (Paused - Provider: Corrina Richardson RN)0452 (Restarted - Provider: Corrina Richardson RN)0736 (Paused - Provider: Corrina Richardson RN)0807 (Restarted - Provider: Corrina Richardson RN)0910 (Paused - Provider: Corrina Richardson RN)0925 (Restarted - Provider: Corrina Richardson RN)1002 (Stop Bag - Provider: Corrina Richardson RN) lactated ringers infusion (CANCELED) 100 mL/hr, intravenous, Continuous, Starting on Thu12/07/23 at 1215, For 24 hours 1215 (Canceled Entry - Provider: Corrina Richardson RN - Comment: Fluids already running. Order changed to q24 hr ordering)2006 (New Bag - Provider: Aliza Benito RN) 0341 (Paused - Provider: Claudia Masterson, MAILS SUPERVISOR)0345 (Paused - Provider: Claudia Masterson, MAILS SUPERVISOR)0345 (Restarted - Provider: Claudia Masterson, MAILS SUPERVISOR)0403 (Paused - Provider: Claudia Montañonger, MAILS SUPERVISOR)0407 (Restarted - Provider: Claudia Corcoraner, MAILS SUPERVISOR)0506 (Paused - Provider: Claudia Masterson, MAILS SUPERVISOR)0512 (Restarted - Provider: Claudia Montañonger, MAILS SUPERVISOR)0605 (Stop Bag - Provider: Claudia Montañonglashawn, MAILS SUPERVISOR)0618 (New Bag - Provider: Aliza Benito RN)1138 (Paused - Provider: Claudia Masterson LPN)1208 (Restarted - Provider: Claudia Montañonglashawn, MAILS SUPERVISOR)1304 (Paused - Provider: Claudia Montañonger, MAILS SUPERVISOR)1306 (Restarted - Provider: Claudia Montañonger, MAILS SUPERVISOR)1400 (Stop Bag - Provider: Claudia Masterson, MAILS SUPERVISOR)1523 (Rate/Dose Verify - Provider: Claudia Masterson LPN) [...] Document: [email or web address] c\[email or web address]_Reference\Orders\ Respiratory Care Guidelines\CPG Bronchodilator 2019.pdf tkndqcu-aevfvuiyamktr-es ffeine (EXCEDRIN MIGRAINE) 250-250-65 mg per tablet 2 tablet 2 tablet, oral, Every 6 hours PRN, headaches, Starting on Thu12/03/23 at 1225 0927 (Given - Provider: Claudia [...] calcium 3.4 mg/dL or less, Starting on Thu12/03/23 at 1405, IV administration of calcium via [...] indication for use. 1007 (Given - Provider: Corrina Richardson RN)1705 (Given - Provider: Corrina Richardson RN)2304 (Given - Provider: Aliza Benito, [...] result continue the replacement orders as needed. 09 (New Bag - Provider: Kahlil Gregorio RN)1128 [...] potassium levels 0737 (See Alternative - Provider: Corrina Richardson RN) 0617 (See Alternative - Provider: [...] crush or chew. 0737 (Given - Provider: Corrina Richardson RN) 0617 (Given - Provider: Aliza Benito RN)7478 (See Alternative - Provider: Claudia Masterson LPN) [...] potassium is more than 4.5, Starting on Thu12/03/23 at 1406, If dose administered, recheck phosphorus [...] level 2.3 mg/dL or less., Starting on Thu12/03/23 at 1406, Administer over 4 hours via [...] is REQUIRED to use this drug at [facility], [facility] and [facility] per [facility]-approved policy # MM 1.15: Yes, Specify: 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 Followed by tigecycline (TYGACIL) 50 mg in sodium chloride 0.9 % 50 mL IVPB (CANCELED)Jump to med 50 mg, intravenous, at 110 mL/hr, Administer over 30 Minutes, Every 12 hours, First dose on [place] 12/06/23 at 0630, Pathogen: MDR infection with confirmed susceptibility, Approved Indication: Other, Authorizing Service: ID consult has been placed, I acknowledge that an appropriate consult is REQUIRED to use this drug at [facility], [facility] and [facility] per [facility]-approved policy # MM 1.15: Yes, Specify: consult [...] Give with a full glass of water. Source Comments (unrecognize d section and content) In the event this informatio n is protected by the Federal Confidentiality of Alcohol and Drug Abuse Patient Records regulations: The Federal rules restrict any use of the information to criminally investigate or prosecute any alcohol or drug abuse patient.[facility] the event this information is protected by the Federal Confidentiality of Alcohol and Drug Abuse Patient Records regulations: The Federal rules restrict any use of the information to criminally investigate or prosecute any alcohol or drug abuse patient.[facility] the event this information is protected by the Federal Confidentiality of Alcohol and Drug Abuse Patient Records regulations: The Federal rules restrict any use of the information to criminally investigate or prosecute any alcohol or drug abuse patient.[facility] the event this information is protected by the Federal Confidentiality of Alcohol and Drug Abuse Patient Records regulations: The Federal rules restrict any use of the information to criminally investigate or prosecute any alcohol or drug abuse patient.[facility] the event this information is protected by the Federal Confidentiality of Alcohol and Drug Abuse Patient Records regulations: The Federal rules restrict any use of the information to criminally investigate or prosecute any alcohol or drug abuse patient.[facility] the event this information is protected by the Federal Confidentiality of Alcohol and Drug Abuse Patient Records regulations: The Federal rules restrict any use of the information to criminally investigate or prosecute any alcohol or drug abuse patient.[facility] the event this information is protected by the Federal Confidentiality of Alcohol and Drug Abuse Patient Records regulations: The Federal rules restrict any use of the information to criminally investigate or prosecute any alcohol or drug abuse patient.[facility] the event this information is protected by the Federal Confidentiality of Alcohol and Drug Abuse Patient Records regulations: The Federal rules restrict any use of the information to criminally investigate or prosecute any alcohol or drug abuse patient.[facility] the event this information is protected by the Federal Confidentiality of Alcohol and Drug Abuse Patient Records regulations: The Federal rules restrict any use of the information to criminally investigate or prosecute any alcohol or drug abuse patient.[facility] the event this information is protected by the Federal Confidentiality of Alcohol and Drug Abuse Patient Records regulations: The Federal rules restrict any use of the information to criminally investigate or prosecute any alcohol or drug abuse patient.[facility] the event this information is protected by the Federal Confidentiality of Alcohol and Drug Abuse Patient Records regulations: The Federal rules restrict any use of the information to criminally investigate or prosecute any alcohol or drug abuse patient.[facility] HospitalIn the event this information is protected by the Federal Confidentiality of Alcohol and Drug Abuse Patient Records regulations: The Federal rules restrict any use of the information to criminally investigate or prosecute any alcohol or drug abuse patient.[facility] HospitalIn the event this information is protected by the Federal Confidentiality of Alcohol and Drug Abuse Patient Records regulations: The Federal rules restrict any use of the information to criminally investigate or prosecute any alcohol or drug abuse patient.[facility] HospitalIn the event this information is protected by the Federal Confidentiality of Alcohol and Drug Abuse Patient Records regulations: The Federal rules restrict any use of the information to criminally investigate or prosecute any alcohol or drug abuse patient.[facility] HospitalIn the event this information is protected by the Federal Confidentiality of Alcohol and Drug Abuse Patient Records regulations: The Federal rules restrict any use of the information to criminally investigate or prosecute any alcohol or drug abuse patient.[facility] HospitalIn the event this information is protected by the Federal Confidentiality of Alcohol and Drug Abuse Patient Records regulations: The Federal rules restrict any use of the information to criminally investigate or prosecute any alcohol or drug abuse patient.[facility] HospitalIn the event this information is protected by the Federal Confidentiality of Alcohol and Drug Abuse Patient Records regulations: The Federal rules restrict any use of the information to criminally investigate or prosecute any alcohol or drug abuse patient.[facility] HospitalIn the event this information is protected by the Federal Confidentiality of Alcohol and Drug Abuse Patient Records regulations: The Federal rules restrict any use of the information to criminally investigate or prosecute any alcohol or drug abuse patient.[facility] HospitalIn the event this information is protected by the Federal Confidentiality of Alcohol and Drug Abuse Patient Records regulations: The Federal rules restrict any use of the information to criminally investigate or prosecute any alcohol or drug abuse patient.[facility] HospitalIn the event this information is protected by the Federal Confidentiality of Alcohol and Drug Abuse Patient Records regulations: The Federal rules restrict any use of the information to criminally investigate or prosecute any alcohol or drug abuse patient.[facility] HospitalIn the event this information is protected by the Federal Confidentiality of Alcohol and Drug Abuse Patient Records regulations: The Federal rules restrict any use of the information to criminally investigate or prosecute any alcohol or drug abuse patient.[facility] HospitalIn the event this information is protected by the Federal Confidentiality of Alcohol and Drug Abuse Patient Records regulations: The Federal rules restrict any use of the information to criminally investigate or prosecute any alcohol or drug abuse patient.[facility] FOR RECORDS PERTAINING TO PATIENTS WHO ARE [...] BE BASED ON THE PRIMARY CLINICAL RECORDS. [facility]. provides no warranty or guarantee of the accuracy or completeness of information in this document.
== END 2024-10-19 08:08 | disposition home or self-care (01) ==
LOC: CARD 08:07
PROVIDERS: PCP Nurse Practitioner Family; Visit Provider Internal Medicine Hematology & Oncology
DX: Z79.899 Other long term (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 therapy (principal); C50.311 Malignant neoplasm of lower-inner quadrant of right female breast; D70.1 Agranulocytosis secondary to cancer chemotherapy; R11.2 Nausea with vomiting, unspecified; C77.9 Secondary and unspecified malignant neoplasm of lymph node, unspecified; Z15.09 Genetic susceptibility to other malignant neoplasm; Z79.818 Long term (current) use of other agents affecting estrogen receptors and estrogen levels; D64.81 Anemia due to antineoplastic chemotherapy; C77.3 Secondary and unspecified malignant neoplasm of axilla and upper limb lymph nodes; Z17.1 Estrogen receptor negative status [ER-]; Z17.22 Progesterone receptor negative status
CPT/HCPCS: 93306; 93356

== ENCOUNTER 2024-10-25 07:48 | Outpatient (RCR) | payer OTHER, SELFPAY ==
[2024-10-11 10:32] LABS: Hematocrit 24.5 % (36.0-48.0); Hemoglobin 8.7 g/dL (12.0-16.0); Mean Corpuscular HGB Conc 35.5 g/dL (29.9-35.2); Mean Corpuscular Hemoglobin 37.5 pg (26.7-34.0); Mean Corpuscular Volume 105.6 fL (81.0-99.0); Platelet Count 259 10^3/uL (150-450); Red Blood Count 2.32 10^6/uL (4.20-5.40); White Blood Count 7.7 10^3/uL (4.0-11.0)
[2024-10-11 10:49] LABS: Alanine Aminotransferase 44 U/L (14-59); Albumin Globulin Ratio 1.3; Albumin Level 3.6 g/dL (3.4-5.0); Alkaline Phosphatase 60 U/L (46-116); Anion Gap 13.5; Aspartate Amino Transferase 28 U/L (15-37); Blood Urea Nitrogen 23.0 mg/dL (7.0-18.0); Calcium 9.1 mg/dL (8.5-10.1); Carbon Dioxide 25.5 mmol/L (21.0-32.0); Chloride 106 mmol/L (98-107); Estimated GFR (African America 59 (>=60 mL/min/1.73m^2); Estimated GFR (Non-African Ame 49 (>=60 mL/min/1.73m^2); Globulin 2.7 g/dL; Glucose 85 mg/dL (74-106); Potassium 4.0 mmol/L (3.5-5.1); Sodium 141 mmol/L (136-145); Total Protein 6.3 g/dL (6.4-8.2)
[2024-10-11 10:53] LABS: Magnesium 1.9 mg/dL (1.8-2.4)
[2024-10-11 10:58] LABS: Basophils Abs Manual 0.00 10^3/uL (0.00-0.10); Basophils Percent Manual 0.0 % (0.2-2.0); Eosinophils Absolute Manual 0.00 10^3/uL (0.00-0.70); Eosinophils Percent Manual 0.0 % (0.9-7.0); Lymphocytes Absolute Manual 2.54 10^3/uL (1.20-3.80); Lymphocytes Percent Manual 33.0 % (20.5-60.0); Metamyelocytes Absolute Manual 0.07; Monocytes Absolute Manual 0.30 10^3/uL (0.30-0.80); Monocytes Percent Manual 4.0 % (1.7-12.0); Myelocytes % Manual 2.0; Myelocytes Absolute Manual 0.15; Segmented Neut Absolute Manual 4.62 10^3/uL (1.4-6.5); Segmented Neutrophils % Manual 60.0 (43.0-75.0)
[2024-10-11 11:01] LABS: Anisocytosis 2+; Macrocytosis 2+; Polychromasia 1+
[2024-10-12 08:09] LABS: CA 15-3 56.1 U/mL (0.0-25.0); CA 27.29 69.4 U/mL (0.0-38.6)
[2024-10-25 11:00] VITALS: BP 124/85; PULSE 78; TEMP 36.3; O2SAT 99
[2024-10-25 11:34] LABS: Hematocrit 25.1 % (36.0-48.0); Hemoglobin 9.0 g/dL (12.0-16.0); Immature Granulocytes Abs Auto 0.02 10^3/uL (0.00-0.03); Immature Granulocytes Pct Auto 0.5 % (0.0-0.5); Lymphocytes Absolute Auto 0.9 10^3/uL (1.2-3.8); Mean Corpuscular HGB Conc 35.9 g/dL (29.9-35.2); Mean Corpuscular Hemoglobin 39.3 pg (26.7-34.0); Platelet Count 210 10^3/uL (150-450); Red Blood Count 2.29 10^6/uL (4.20-5.40); White Blood Count 4.2 10^3/uL (4.0-11.0)
--- NOTE | 2024-10-25 11:35 | PC.NURSE ---
1130 Changed PICC Line dressing. Prepared sterile field. Loosened old PICC line dressing and removed. Cleansed all area with chlorhexadine and allowed to dry. Next applied skin prep and attached stat lock. Finally allpied CHG dressing and changed caps with new j-loop and flushed both ports. Patient tolerated well.
[2024-10-25 11:47] LABS: Alanine Aminotransferase 32 U/L (14-59); Albumin Globulin Ratio 1.2; Albumin Level 3.6 g/dL (3.4-5.0); Alkaline Phosphatase 69 U/L (46-116); Anion Gap 13.5; Aspartate Amino Transferase 19 U/L (15-37); Blood Urea Nitrogen 13.0 mg/dL (7.0-18.0); Calcium 8.8 mg/dL (8.5-10.1); Carbon Dioxide 23.6 mmol/L (21.0-32.0); Chloride 106 mmol/L (98-107); Estimated GFR (African America 58 (>=60 mL/min/1.73m^2); Estimated GFR (Non-African Ame 48 (>=60 mL/min/1.73m^2); Globulin 3.1 g/dL; Glucose 84 mg/dL (74-106); Magnesium 1.8 mg/dL (1.8-2.4); Potassium 4.1 mmol/L (3.5-5.1); Sodium 139 mmol/L (136-145); Total Protein 6.7 g/dL (6.4-8.2)
[2024-10-25 11:51] LABS: Mean Corpuscular Volume 109.6 fL (81.0-99.0)
--- NOTE | 2024-10-25 12:29 | PC.NURSE ---
Dr. Hope to chairside for MD office visit.
[2024-10-25] MEDS: DEXTROSE 5 % IN WATER 250 ML 10 ML IV (12:40)
[2024-10-25] MEDS: PALONOSETRON HCL 0.25 MG/5 ML VIAL IV (12:43)
[2024-10-25] MEDS: ACETAMINOPHEN 325 MG TABLET 650 MG PO (12:47)
[2024-10-25] MEDS: DEXAMETHASONE SODIUM PHOSPHATE IV (13:31)
[2024-10-25] MEDS: [UNRECOGNIZED DRUG - OTHER] IV (13:31)
[2024-10-25] MEDS: DIPHENHYDRAMINE HCL IV (13:31)
--- NOTE | 2024-10-25 13:39 | PC.NURSE ---
1240: Pre-meds initiated at this time. Pt. eating lunch. Denies needs or c/o.
[2024-10-25] MEDS: [UNRECOGNIZED DRUG - OTHER] IV (14:00)
[2024-10-25] MEDS: WATER IV (14:00)
[2024-10-25] MEDS: DEXTROSE 5% IV (14:00)
--- NOTE | 2024-10-25 14:14 | PC.NURSE ---
1400: IV Ktertu initiated at this time. Pt. drowsy. Attempts to nap. Denies needs.
--- NOTE | 2024-10-25 14:28 | PC.NURSE ---
Resting quietly with eyes closed. IV Enhertu cont. to infuse without s&s of adverse reaction.
== END 2024-10-30 23:59 | disposition home or self-care (01) ==
LOC: HEMC 07:48
PROVIDERS: PCP Nurse Practitioner Family; Visit Provider Internal Medicine Hematology & Oncology
DX: Z51.11 Encounter for antineoplastic chemotherapy (principal); Z51.12 Encounter for antineoplastic immunotherapy; C50.311 Malignant neoplasm of lower-inner quadrant of right female breast; Z79.899 Other long term (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 therapy; D70.1 Agranulocytosis secondary to cancer chemotherapy; R11.2 Nausea with vomiting, unspecified; C77.9 Secondary and unspecified malignant neoplasm of lymph node, unspecified; Z15.09 Genetic susceptibility to other malignant neoplasm; Z79.818 Long term (current) use of other agents affecting estrogen receptors and estrogen levels; D64.81 Anemia due to antineoplastic chemotherapy; C77.3 Secondary and unspecified malignant neoplasm of axilla and upper limb lymph nodes; Z17.1 Estrogen receptor negative status [ER-]; Z17.22 Progesterone receptor negative status
CPT/HCPCS: 36415; 36592; 80053; 83735; 85007; 85025; 85027; 86300; 96367; 96375; 96413; 96415; G0463; J1100; J1200; J1453; J2469; J9358

== ENCOUNTER 2024-10-27 12:50 | Outpatient (RCR) | payer OTHER, SELFPAY ==
[2024-10-03 13:01] LABS: Hematocrit 27.0 % (36.0-48.0); Hemoglobin 9.5 g/dL (12.0-16.0); Immature Granulocytes Abs Auto 0.02 10^3/uL (0.00-0.03); Immature Granulocytes Pct Auto 0.6 % (0.0-0.5); Lymphocytes Absolute Auto 0.9 10^3/uL (1.2-3.8); Mean Corpuscular HGB Conc 35.2 g/dL (29.9-35.2); Mean Corpuscular Hemoglobin 36.7 pg (26.7-34.0); Mean Corpuscular Volume 104.2 fL (81.0-99.0); Platelet Count 185 10^3/uL (150-450); Red Blood Count 2.59 10^6/uL (4.20-5.40); White Blood Count 3.4 10^3/uL (4.0-11.0)
[2024-10-03 13:07] VITALS: BP 130/90; PULSE 80; TEMP 36.6; O2SAT 95
--- NOTE | 2024-10-03 13:11 | PC.NURSE ---
left upper arm picc intact labs drawn and sent to lab. stat lock and chg dressing changed. site clear, approx 1 cm external catheter length noted.
[2024-10-03 13:14] LABS: Alanine Aminotransferase 66 U/L (14-59); Albumin Globulin Ratio 1.2; Albumin Level 3.5 g/dL (3.4-5.0); Alkaline Phosphatase 72 U/L (46-116); Aspartate Amino Transferase 40 U/L (15-37); Estimated GFR (African America >60 (>=60 mL/min/1.73m^2); Estimated GFR (Non-African Ame 53 (>=60 mL/min/1.73m^2); Globulin 2.9 g/dL; Total Protein 6.4 g/dL (6.4-8.2)
[2024-10-04 08:08] LABS: Amikacin Trough, Serum <0.8 ug/mL (1.0-8.0)
[2024-10-06 08:11] LABS: Amikacin Peak, Serum 35.6 ug/mL (20.0-30.0)
--- NOTE | 2024-10-11 09:40 | PC.NURSE ---
0920 patient here to get lab draws and picc line dressing change. Labs were drawn Old dressing removed intact and cleansed area real well and allowed to dry. Applied skin prep and applied hcg dressing along with tegaderm. Flushed both lines with normal saline and changed tubing and green caps. Patient tolerated well.
[2024-10-12 08:09] LABS: Amikacin Trough, Serum <0.8 ug/mL (1.0-8.0)
[2024-10-15 10:08] LABS: Amikacin Peak, Serum 37.1 ug/mL (20.0-30.0)
[2024-10-18 13:57] LABS: Hematocrit 27.1 % (36.0-48.0); Hemoglobin 9.5 g/dL (12.0-16.0); Mean Corpuscular HGB Conc 35.1 g/dL (29.9-35.2); Mean Corpuscular Hemoglobin 38.3 pg (26.7-34.0); Mean Corpuscular Volume 109.3 fL (81.0-99.0); Platelet Count 189 10^3/uL (150-450); Red Blood Count 2.48 10^6/uL (4.20-5.40); White Blood Count 5.9 10^3/uL (4.0-11.0)
[2024-10-18 14:21] LABS: Alanine Aminotransferase 45 U/L (14-59); Albumin Globulin Ratio 1.2; Albumin Level 3.6 g/dL (3.4-5.0); Alkaline Phosphatase 70 U/L (46-116); Aspartate Amino Transferase 28 U/L (15-37); Estimated GFR (African America 49 (>=60 mL/min/1.73m^2); Estimated GFR (Non-African Ame 41 (>=60 mL/min/1.73m^2); Globulin 3.0 g/dL; Total Protein 6.6 g/dL (6.4-8.2)
[2024-10-18 15:06] LABS: Lymphocytes Absolute Manual 1.00 10^3/uL (1.20-3.80); Lymphocytes Percent Manual 17.0 % (20.5-60.0); Segmented Neut Absolute Manual 4.60 10^3/uL (1.4-6.5); Segmented Neutrophils % Manual 78.0 (43.0-75.0)
[2024-10-18 15:07] LABS: Basophils Abs Manual 0.00 10^3/uL (0.00-0.10); Basophils Percent Manual 0.0 % (0.2-2.0); Eosinophils Absolute Manual 0.11 10^3/uL (0.00-0.70); Eosinophils Percent Manual 2.0 % (0.9-7.0); Monocytes Absolute Manual 0.17 10^3/uL (0.30-0.80); Monocytes Percent Manual 3.0 % (1.7-12.0)
[2024-10-19 09:08] LABS: Amikacin Trough, Serum <0.8 ug/mL (1.0-8.0)
[2024-10-22 09:09] LABS: Amikacin Peak, Serum 32.7 ug/mL (20.0-30.0)
[2024-10-26 15:09] LABS: Amikacin Trough, Serum <0.8 ug/mL (1.0-8.0)
[2024-10-28 08:09] LABS: Amikacin Peak, Serum 32.6 ug/mL (20.0-30.0)
== END 2024-10-30 23:59 | disposition home or self-care (01) ==
LOC: INF 12:50
PROVIDERS: PCP Nurse Practitioner Family
DX: Z51.11 Encounter for antineoplastic chemotherapy (principal); Z51.12 Encounter for antineoplastic immunotherapy; R11.2 Nausea with vomiting, unspecified; A31.8 Other mycobacterial infections; C50.311 Malignant neoplasm of lower-inner quadrant of right female breast; C77.9 Secondary and unspecified malignant neoplasm of lymph node, unspecified; Z79.899 Other long term (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 therapy; Z15.09 Genetic susceptibility to other malignant neoplasm; D70.1 Agranulocytosis secondary to cancer chemotherapy; Z79.818 Long term (current) use of other agents affecting estrogen receptors and estrogen levels; D64.81 Anemia due to antineoplastic chemotherapy; C77.3 Secondary and unspecified malignant neoplasm of axilla and upper limb lymph nodes; Z17.22 Progesterone receptor negative status; Z17.1 Estrogen receptor negative status [ER-]
CPT/HCPCS: 36415; 36592; 78815; 80053; 80076; 80150; 82248; 82565; 83735; 85007; 85025; 85027; 86300; 96367; 96375; 96413; 96415; A9552; G0463; J1100; J1200; J1453; J2469; J9358

== ENCOUNTER 2024-11-04 10:18 | Outpatient (OUT) | payer OTHER, SELFPAY ==
--- OUTSIDE RECORDS SUMMARY | 2024-09-07 16:30 | XMS_ITS | Encounter Summary ---
Author Organization [facility] Address [facility] [place] [address] Care Team Providers Care Health Services Manager Name Role Phone Carolina Munguia APRN Unavailable [phone] Jessica Hope MD Unavailable [phone] Lynda Manuel CNP Primary Care Provider [phone] Shereen Smallwood PA-C Unavailable [phone] Radha Martinez RN Unavailable Source Comments In the event this information is protected by the Federal Confidentiality of Alcohol and Drug AbusePatient Records regulations: The Federal rules restrict any use of the information to criminally investigate or prosecute any alcohol or drug abuse patient.[facility] Reason for Visit * Auth/Cert (Routine) [...] LESION(S) 1 SESSION MULTI-SOURCE COBALT Anesthesia [address] [id number] Referral ID Status Reason Start Date Expiration Date Visits Re quested Visits Authorized [id number] 1 1 Encounter Details Date Type Department Care Team (Latest Contact Info) Description 09/07/2024 4:30 PM EDT Hospital Encounter Anesthesia [address] [place] [address] Carlos Mccain DO, PhD [address] [place] [address] 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] Social History Tobacco Use Types Packs/Day Years Used Date Smoking Tobacco: Never Passive Smoke Exposure: Never Smokeless Tobacco: Never Alcohol Use Standard Drinks/Week Comments Not Currently 0 (1 standard drink = 0.6 oz pur e alcohol) Occasional wine [facility] Utilities Answer Date Recorded In the past [...] any time in the past 12 m [facility], were you homeless or living in a group home (including now)? No 08/29/2024 Area Deprivation Index Answer Date Milton rded National Score (1-100), lower number is lower ri sk 82 07/21/2024 State Score (1-10), lower number is lower risk 7 07/21/2024 Data from: https://www.neighborhoodatlas.medicine.[facility].edu/. Last address used for calculation [address] 07/21/2024 Comments Unknown Sex and Gender Information Value Date Recorded Sex Assigned at Not on file Legal Sex Female 3:51 PM EDT Gender Identity Not on file Sexual Orientation Not on file documented as of this encounter Plan of Treatment Upcoming Encounters Date Type Department Care Team (Latest Contact Info) Description 11/29/2024 10:20 AM EDT Appointment [facility] Radiology MRI [address] [facility] [place] [address] With Perfusion 11/29/2024 1:00 PM EDT Office Visit [facility] Ophthalmology [address] [place] [address] Anitra Walters MD [address] [place] [address] Diagnostics, [facility] [address] [facility] [address] [address] Cataract Eval 12/01/2024 2:00 PM EDT [facility] [address] [place] [address] Carlos Mccain DO, PhD [address] [facility] [address] [place], [place] [id number] Established patient Visit with Dr. Mccain for MRI review and follow up documented as of this encounter Visit Diagnoses Not on filedocumented in this encounter Care Teams Health Services Manager Relationship Specialty Start Date End Date Lynda Manuel, LEGISLATIVE ADVOCATE [address] [place] [address] PCP - General Family Medicine 06/14/24 09/26/24 Carolina Munguia APRN [address] [facility] [address] [facility] [place] [place] [address] 12/04/23 Jessica Hope MD [address] [place] [address] Referring Hematology/Oncology 06/14/24 Shereen Smallwood PA-C [address] [address] [facility] Referring Orthopedics 06/15/24 [place] [address] [place] [address] Specialty Senior Interactive Developer Hematology/Oncology 07/31/24 documented as of this encounter
--- OUTSIDE RECORDS SUMMARY | 2024-10-04 07:15 | XMS_ITS ---
Author Organization The [facility] in [place] Address [address] [place] [address] Care Team Providers Care Methods Specialist Name Role Phone Lynda Lawson Primary Care Provider Unavailabl Jessica Bruce Unavailable [phone] REASON FOR VISIT MD Encounters Encounter Location Date Provider Diagnosis [facility] Oncology [address] [place] [phone] 10/04/2024 Jessica Jayy Plan Of Treatment No Information Progress Notes * Yasmin FLANNERY ADOB:[birth year] (54 yo F)Acc No.[id number]:10/04/2024 UNLOCKED PROGRESS NOTE Progress Notes Patient: Yasmin KHALIL Provider: Yumi Hope M.D. :1970 A ge:53 Y S ex:Female Date:10/04/2024 Address[address] , [id number] Pcp:GUY Wilson Subjective: * Chief Complaints: * 1 . MD. * Medical History: Objective: * Vitals: Assessment: Plan: * Treatment: * * Electronic signature of Parisa Hope MD, [id number] on 11/04/2024 at 10:24 AM EDT Sign off status: Pending Visit Status: C ANC (Cancelled) * Provider: Yumi Hope M.D. Date: 0 10/04/2024 Generated for Abby stewart/Danni/Juan Carlositting on: 0 11/04/2024 10:24 AM EDT
--- OUTSIDE RECORDS SUMMARY | 2024-10-07 17:00 | XMS_ITS | Encounter Summary ---
Author Organization [facility] Address [facility] [place] [address] Care Team Providers Care Vice President Sales Name Role Phone Carolina Munguia APRN Unavailable [phone] Jessica Hope MD Unavailable [phone] Shereen Smallwood PA-C Unavailable [phone] Radha Martinez RN Unavailable Amy Collier NP Primary Care Provider [phone] Source Comments In the event this information is protected by the Federal Confidentiality of Alcohol and Drug AbusePatient Records regulations: The Federal rules restrict any use of the information to criminally investigate or prosecute any alcohol or drug abuse patient.[facility] Reason for Visit * Auth/Cert (Routine) [...] LESION(S) 1 SESSION MULTI-SOURCE COBALT Anesthesia [address] [place] [address] Referral ID Status Reason Start Date Expiration Date Visits Re quested Visits Authorized [id number] 1 1 Encounter Details Date Type Department Care Team (Latest Contact Info) Description 10/07/2024 5:00 PM EDT Hospital Encounter Anesthesia [address] [place] [address] Carlos Mccain DO, PhD [address] [place] [address] 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] Social History Tobacco Use Types Packs/Day Years Used Date Smoking Tobacco: Never Passive Smoke Exposure: Never Smokeless Tobacco: Never Alcohol Use Standard Drinks/Week Comments Not Currently 0 (1 standard drink = 0.6 oz pur e alcohol) Occasional wine [facility] Utilities Answer Date Recorded In [...] any time in the past 12 m [facility], were you homeless or living in a half-way (including now)? No 08/29/2024 Area Deprivation Index Answer Date [place] rded National Score (1-100), lower number is lower ri 82 07/21/2024 State Score (1-10), lower number is lower risk 7 07/21/2024 Data from: https://www.neighborhoodatlas.medicine.[facility].edu/. Last address used for calculation [address] [...] Info) Description 11/29/2024 10:20 AM EDT Appointment [facility] Radiology MRI [address] [place] [address] With Perfusion 11/29/2024 1:00 PM EDT Office Visit [facility] Ophthalmology [address] [place] [address] Anitra Walters MD [address] [place] [address] Diagnostics, Eye [facility] [address] [facility] [address] [place] [address] Cataract Eval 12/01/2024 2:00 PM EDT [facility] Brain Tumor Center [address] [place] [address] Carlos Mccain DO, PhD [address] [facility] [address] [place] [address] Established patient Visit with Dr. Mccain for MRI review and follow up documented as of this encounter Visit Diagnoses Not on filedocumented in this encounter Care Teams Vice President Sales Relationship Specialty Start Date End Date Amy Collier NP [address] [place] [address] PCP - General Family Medicine 09/27/24 Carolina Munguia APRN [address] [facility] [address] [address] 12/04/23 Jessica Hope MD [address] [place] [address] Referring Hematology/Oncology 06/14/24 Shereen Smallwood PA-C [address] [address] [facility] Referring Orthopedics 06/15/24 [place] [address] [place] [address] Specialty Planner Intern Hematology/Oncology 07/31/24 documented as of this encounter
--- OUTSIDE RECORDS SUMMARY | 2024-10-11 04:30 | XMS_ITS ---
Author Organization [facility] [place] Address [address] [place] [address] Care Team Providers Care Yield Improvement Engineer Name Role Phone Lynda Lawson Primary Care Provider Unavailabl Jessica Bruce Unavailable [phone] REASON FOR VISIT MD Encounters Encounter Location Date Provider Diagnosis [facility] Oncology [address] [place] [phone] 10/11/2024 Jessicahilton Hope Plan Of Treatment No Information Progress Notes * Yasmin FLANNERY ADOB:[birth year] (54 yo F)Acc No.[id number]:10/11/2024 UNLOCKED PROGRESS NOTE Progress Notes Patient: Yasmin KHALIL Provider: Yumi Hope M.D. :1970 A ge:54 Y S ex:Female Date:10/11/2024 [address] , [phone] Pcp:GUY Wilson Subjective: * Chief Complaints: * 1 . MD. * Medical History: Objective: * Vitals: Assessment: Plan: * Treatment: * * Electronic signature of Parisa Hope MD, [id number] on 11/04/2024 at 10:22 AM EDT Sign off status: Pending Visit Status: V OICEMSG (Voice) * Provider: Yumi Hope M.D. Date: 0 10/11/2024 Generated for Abby stewart/Danni/Juan Carlositting on: 0 11/04/2024 10:22 AM EDT
--- OUTSIDE RECORDS SUMMARY | 2024-10-25 07:30 | XMS_ITS ---
Author Organization [facility] in [place] Address [address] [place] [address] Care Team Providers Care Digital Marketing Apprentice Name Role Phone Lynda Lawson Primary Care Provider Unavailabl Jessica Bruce Unavailable [phone] REASON FOR VISIT MD Encounters Encounter Location Date Provider Diagnosis [facility] Oncology [address] [place] [id number] 10/25/2024 Jessica Jayy Plan Of Treatment No Information Progress Notes * Yasmin FLANNERY ADOB:[birth year] (54 yo F)Acc No.[id number]:10/25/2024 UNLOCKED PROGRESS NOTE Progress Notes Patient: Yasmin KHALIL Provider: Yumi Hope M.D. :1970 A ge:54 Y S ex:Female Date:10/25/2024 [address] , [id number] Pcp:GUY Wilson Subjective: * Chief Complaints: * 1 . MD. * Medical History: Objective: * Vitals: Assessment: Plan: * Treatment: * * Electronic signature of Parisa Hope MD, [id number] on 11/04/2024 at 10:24 AM EDT Sign off status: Pending Visit Status: P EN (Pending) * Provider: Yumi Hope M.D. Date: 0 10/25/2024 Generated for Abby stewart/Danni/Juan Carlositting on: 0 11/04/2024 10:24 AM EDT
--- OUTSIDE RECORDS SUMMARY | 2024-10-26 08:30 | XMS_ITS | Encounter Summary ---
Author Organization [facility] [employer] [facility] tem Address [id number] [address] [place] [address] Care Team Providers Care Chute Man Name Role Phone Amy Collier CARDIOVASCULAR TECH-TEXTILE ENGINEER Primary Care Provider + Encounter Details Date Type Department Care Team (Latest Contact Info) Description 10/26/2024 8:30 AM EDT Telephone Visit [facility] Gynecology Oncology, A Department of [address] [place] [address] Raymond Sepulveda MD [address] [place] [address], [address] [place] [address] Malignant neoplasm of right breast [...] = 0.6 oz pur e alcohol) [facility] Utilities Answer Date Recorded In the past 12 months has [employer], gas, oil, or water [employer] threatened to shut off services in your home? No 07/27/2024 Social Connection and Isolat ion Panel [NHANES] Answer Date Recorded In a typical week, how many times do you talk on the phone with family, friends, or neighbors? Twice a week 02/27/2022 How often do you get togethe r with friends or relatives? Three times a week 02/27/2022 How often do you attend [facility] or congregation services? More than 4 times [...] Answer Date Recorded Total Score 0 08/10/2024 [facility] of Occupat ional Health - Occupational Stress [...] Recorded Do you need help finding a [facility] career center and/or a training program? 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
--- OUTSIDE RECORDS SUMMARY | 2024-10-26 13:30 | XMS_ITS | Encounter Summary ---
Author Organization [facility] tem Address [id number] [address] [place] [address] Care Team Providers Care Associate Artistic Director Name Role Phone Amy Collier CHAIR POST MACHINE OPERATOR-CARBON PAPER COATING SUPERVISOR Primary Care Provider + Reason for Visit * Reason Comments Post-op Encounter Details Date Type Department Care Team (Latest Contact Info) Description 10/26/2024 1:30 PM EDT Office Visit [facility] [address] [place] [address] Marisela Davila, [facility] [address], [address] [place] [address] Breast wound, left, sequela (Primary Dx); Encounter for postoperative care; Complicated wound infection Social History Tobacco Use Types Packs/Day Years Used Date Smoking Tobacco: Never Passive Smoke Exposure: Past Smokeless Tobacco: Never Tobacco Cessation:Counseling Given: Not Answered Alcohol Use Standard Drinks/Week Comments Not Currently 0 (1 standard drink = 0.6 oz pur e alcohol) [facility] Utilities Answer Date Recorded In the past 12 months has [employer], gas, oil, or water [employer] threatened to shut off services in your home? No 07/27/2024 Social Connection and Isolat ion Panel [NHANES] Answer Date Recorded In a typical week, how many times do you talk on the phone with family, friends, or neighbors? Twice a week 02/27/2022 How often do you get togethe r with friends or relatives? Three times a week 02/27/2022 How often do you attend [facility] or christianity services? More than 4 times per year [...] Answer Date Recorded Total Score 0 08/10/2024 [facility] of Occupat ional Health - Occupational Stress [...] Recorded Do you need help finding a [facility] career center and/or a [...] file Travel History Travel Start Travel End [place] 09/13/2024 10/26/2024 documented as of this encounter [...] bilateral skin sparing mastectomies (He) and tissue turbine attendant reconstruction in10/28/2023. Her postoperative course was complicated by an infected seroma of her left breast requiring operative washout and tissue turbine attendant removal 11/27/23. Intraoperative cultures demonstrated growth of [...] this note were generated using voice recognition [employer] dictation software. Although every effort was made to ensure the accuracy of this automated sde, some errors in sde may have occurred. AMEENA Kennedy 10/26/24 1448 documented in this encounter Plan of Treatment Upcoming Encounters Date Type Department Care Team (Late st Contact Info) Description 11/16/2024 1:30 PM EDT Office Visit [facility] [address] [facility] [address] [place] [address] Marisela Davila APRN-CNP [address], [facility] [address] [place] [address] documented as of this encounter Goals Goal Patient Goal Type Associated Problems Recent Progress Patient-Stated? 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
--- OUTSIDE RECORDS SUMMARY | 2024-11-01 05:30 | XMS_ITS ---
Author Organization [facility] [place] Address [address] [place] [address] Care Team Providers Care Stationary Engineer Refrigeration Name Role Phone Lynda Lawson Primary Care Provider Unavailabl Jessica Bruce Unavailable [phone] REASON FOR VISIT MD Encounters Encounter Location Date Provider Diagnosis [facility] [address] [place] [phone] 11/01/2024 Jessicahilton Hope Plan Of Treatment No Information Progress Notes * Yasmin FLANNERY ADOB:[birth year] (54 yo F)Acc No.[id number]:11/01/2024 UNLOCKED PROGRESS NOTE Progress Notes Patient: Yasmin KHALIL Provider: Yumi Hope M.D. :1970 A ge:54 Y S ex:Female Date:11/01/2024 Address:[address] , [phone] Pcp:GUY Wilson Subjective: * Chief Complaints: * 1 . MD. * Medical History: Objective: * Vitals: Assessment: Plan: * Treatment: * * Electronic signature of Parisa Hope MD, [id number] on 11/04/2024 at 10:24 AM EDT Sign off status: Pending Visit Status: C ANC (Cancelled) * Provider: Yumi Hope M.D. Date: 0 11/01/2024 Generated for Abby stewart/Danni/Juan Carlositting on: 0 11/04/2024 10:24 AM EDT
--- NOTE | 2024-11-04 10:20 | US_ITS ---
The [address] [address] Patient Name: IKE JONES MRN: [id number] date: 1970 Sex: F Assigned Patient Location: US Current Patient Location: US Accession/Order Number: [id number] Exam Date: 11/04/2024 10:30 Report Date: 11/04/2024 11:00 At the request of: AARTI NUNEZ MD Procedure: US renal BI BILATERAL RENAL AND BLADDER ULTRASOUND CLINICAL HISTORY: Abnormal laboratory data. Malignant Neoplasm Right Breast, Neoplasm Lymph Nodes COMPARISON: None PET/CT 10/10/2024 Estimation of renal size is approximately 9.8 cm on the right and 13.2 cm on the left. 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 No shadowing calculi or hydronephrosis are identified. No renal mass lesions were imaged. There is no perinephric fluid. The urinary bladder is partially distended with a volume of 141 mL. No contour or intraluminal abnormalities are seen. US/US renal BI IMPRESSION: NO OBSTRUCTIVE UROPATHY. Impression dictated by: Seema Martin M.D. 11/04/2024 11:00 AM Dictation Location: [place] [address] Electronically authenticated by: [id number] Y Date: 11/04/2024 11:00
--- OUTSIDE RECORDS SUMMARY | 2024-11-04 10:20 | XMS_ITS | Encounter Summary ---
Author Organization [employer] tem Address [id number] [place] [address] Care Team Providers Care Sort Supervisor Name Role Phone Amy Collier William LINDQUIST Primary Care Provider + Reason for Referral * Consultation (Urgent) - Pending Review Specialty Diagnoses / Procedures Referred By Contac t Referred To Contact Infectious Disease / Respiratory Therapy Diagnoses Acid fast bacillus Carolina Munguia APRN-CNP [address] [address] [address] [address] Phone: tel: fax: Uyen Rivera MD [address] [address] Phone: tel: fax: Referral ID Status Reason Start Date Expiration Date Visits Requested Visits Authorized [id number] Pending Review Specialty Services Required 12/02/2023 12/01/2024 1 1 * Consultation (Urgent) - Pending Review Specialty Diagnoses / Procedures Referred By Contac t Referred To Contact Infectious Disease Diagnoses Acid fast bacillus Carolina Munguia APRN-CNP [address] [facility] [address] [address] Phone: tel: fax: Clint Lizarraga MD [address] [place] [address] Phone: tel: fax: Referral ID Status Reason Start Date Expiration Date Visits Requested Visits Authorized [id number] Pending Review Specialty Services Required 12/02/2023 12/01/2024 1 1 Encounter Details Date Type Department Care Team (Late st Contact Info) Description 12/02/2023 Orders Only [facility] Infectious Disease [address] [facility] [address] [facility] [place] [address] Carolina Munguia APRN-CNP [address] [facility], [address] [place] [address] Acid fast bacillus (Primary Dx) Social History Tobacco Use Types Packs/Day Years Used Date Smoking Tobacco: Never Smokeless Tobacco: Never Alcohol Use Standard Drinks/Week Comments Yes 0 (1 standard drink = 0.6 oz pur e alcohol) Socially [employer] Utilities Answer Date Recorded In the past 12 months has [employer], gas, oil, or water [employer] threatened to shut off services in [...] week 02/27/2022 How often do you attend [facility] or mosque services? 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
--- OUTSIDE RECORDS SUMMARY | 2024-11-04 10:20 | XMS_ITS | Encounter Summary ---
Author Organization [facility] Address [address] [place] [address] Care Team Providers Care Tire Repair Mechanic Name Role Phone Randy Lu MD Primary Care Provider Encounter Details Date Type Department Care Team (Late st Contact Info) Description 04/19/2024 Abstract [facility] [address] [place] [address] Evan Thompson [address] [place], [address] [address] Social History Tobacco Use Types Packs/Day Years [...] Care Team (Late st Contact Info) Description 11/24/2024 9:30 AM EDT Office Visit [facility] [address] [place] [phone] Prince Jay DO [address] [place] [address] 06/12/2025 10:00 AM EDT Office Visit [facility] [address] [place] [address] Evan Thompson DO [address] [facility] [place] [address] documented as of this encounter Visit Diagnoses Not on filedocumented in this encounter Care Teams Tire Repair Mechanic Relationship Specialty Start Date End Date Randy Lu MD PCP - General Family Medicine 04/02/23 documented as of this encounter
--- OUTSIDE RECORDS SUMMARY | 2024-11-04 10:20 | XMS_ITS | Encounter Summary ---
Author Organization [facility] tem Address [id number] [address] [place] [address] Care Team Providers Care Attractions Associate Name Role Phone Amy Collier ELECTRONIC WARFARE TECHNICIAN-COMPANY TANKER TRUCK DRIVER Primary Care Provider + Encounter Details Date Type Department Care Team (Late st Contact Info) Description 06/16/2024 Orders Only [facility] - Interventional Radiology [address] [place] [phone] Guillaume Curiel MD [address] [place] [address] [address] [place] [address] Liver lesion (Primary Dx) Social History Tobacco Use Types Packs/Day Years Used Date Smoking Tobacco: Never Passive Smoke Exposure: Past Smokeless Tobacco: Never Alcohol Use Standard Drinks/Week Comments Yes 0 (1 standard drink = 0.6 oz pur e alcohol) Socially [facility] Utilities Answer Date Recorded In the past 12 months has [employer], gas, oil, or water company threatened to [...] Answer Date Recorded Total Score 2 03/30/2024 [facility] of Occupat [facility] - Occupational Stress Questionnaire Answer Date [...] Recorded Do you need help finding a [facility] and/or a training program? [...] file Travel History Travel Start Travel End [place] 09/13/2024 10/26/2024 documented as of this encounter Plan of Treatment Upcoming Encounters Date Type Department Care Team (Late st Contact Info) Description 11/16/2024 1:30 PM EDT Office Visit [facility] Plastic and Reconstructive Surgery [address] [facility] [address] [place] [address] Marisela Davila APRN-COMPANY TANKER TRUCK DRIVER [address], [facility] [address] [place] [address] documented as of this encounter Goals Goal Patient Goal Type Associated Problems Recent Progress Patient-Stated? 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
--- OUTSIDE RECORDS SUMMARY | 2024-11-04 10:20 | XMS_ITS | Encounter Summary ---
Author Organization [employer] tem Address [id number] [address] [place] [address] Care Team Providers Care Nursing Staffing Coordinator Name Role Phone Amy Collier HEEL REDUCER-CURBING STONECUTTER Primary Care Provider + Encounter Details Date Type Department Care Team (Late st Contact Info) Description 12/02/2023 Telephone [facility] Infectious Disease [address] [facility] [address] [place] [address] Shy Bob MA Social History Tobacco Use Types Packs/Day Years Used Date Smoking Tobacco: Never Smokeless Tobacco: Never Alcohol Use Standard Drinks/Week Comments Yes 0 (1 standard drink = 0.6 oz pur e alcohol) Socially [facility] Utilities Answer Date Recorded In the past 12 months has [employer], gas, oil, or water company threatened [...] Total Score 0 03/07/2022 [facility] of Occupat ional Health - Occupational Stress [...] 3:08 PM EDT ----- Message from AMEENA Valeljo sent at 12/02/2023 2:43 PM EDT ----- Regarding: outpatient referral A new outpatient referral for [facility] infectious Disease was placed for this patientwhile she was hospitalized. According to the digital media planner they called to make appointment and was told that [facility] patient. Patient has not heard anything from them. 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 Can someone please reach out to [facility] ID and see if we can [...] referral I would like referrals sent to [facility] and [facility] as well. I will place in [facility] ----- Message ----- From: Nabila Mora CMA Sent: 12/02/2023 3:11 PM EDT To: AMEENA Gomez; # Subject: RE: outpatient referral Wendy philip, Referrals to [facility] & [facility] take 7-10 business days to receive [...] A new outpatient referral for [facility] infectious Disease was placed for this patientwhile she was hospitalized. According to the digital media planner they called to make appointment and was told that [facility] would [facility] patient. Patient has not heard anything from them. 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 Can someone please reach out to [facility] ID and see if we can get her an appointment next week? The referral is in [facility]. Thank you. Adding Leelee for awareness * Telephone Encounter - Shy Bob MA - 12/02/2023 3:08 PM EDT Referral faxed to [facility]. They are scheduling for December/January, if they have any cancellations they will call patient. Faxed referral to [phone] * Telephone Encounter - Nabila Mora CMA - 12/02/2023 3:08 PM EDT Referral & copy of insurance card faxed to [facility] as well & I called personally to [facility] ([phone]) to [address] urgent referral-- spoke to Paul [...] the patient to schedule. Copy of paper [facility] referral form will be scanned into media. * Telephone Encounter - Shy Bob MA - 12/02/2023 3:08 PM EDT [facility] is not able to see patient due to insurance out of network. Patient was notified per [facility]. * Telephone Encounter - AMEENA Vallejo - 12/02/2023 3:08 PM EDT I spoke with patient and she would like referral [facility]. I am placing in [employer] now. Thanks for your help on this! * Telephone Encounter - Nabila Mora CMA - 12/02/2023 3:08 PM EDT [facility] requires their own form to be completed-- I have printed this off, and it does also require a signature as well--placed on QFPay's desk. Refer a patient by paper form Fill out and fax the referral form and clinical documentation to: For referrals to [facility], fax to [phone]. For referrals to the [facility], fax to [phone]. After we have received your fax, we will contact your patient directly to schedule a convenient time and location for his or her appointment. We will send you confirmation of your patient???s appointment for your records. For referrals to [facility], fax to [phone]. If urgent, after faxing, call [phone] to expedite reordering clerk. For referrals to the [facility], fax to [phone]. If urgent, call [facility] at to expedite. * Telephone Encounter - Shy Bob MA - 12/02/2023 3:08 PM EDT Referral signed and faxed. * Telephone Encounter - Shy Bob MA - 12/02/2023 3:08 PM EDT ----- Message from AMEENA Vallejo sent at 12/08/2023 10:37 AM EDT ----- Regarding: RE: outpatient referral Can we please send referral to [facility] ID physician Dr. Cortez York. I will put order in. Dr. Noguera would like her to be seen as soon as possible. Thx. ----- Message ----- From: Nabila Mora CMA Sent: 12/02/2023 3:11 PM EDT To: AMEENA Gomez; # Subject: RE: outpatient referral Wendy philip, Referrals to [facility] & [facility] take 7-10 business days to receive [...] A new outpatient referral for [facility] infectious Disease was placed for this patientwhile she was hospitalized. According to the digital media planner they called to make appointment and was told that [facility] patient. Patient has not heard anything from them. 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 Can someone please reach out to [facility] ID and see if we can get her an appointment next week? The referral is in [facility]. Thank you. Adding Leelee for awareness * Telephone Encounter - Shy Bob MA - 12/02/2023 3:08 PM EDT Referral faxed to [place], will call to verify documented in this encounter Plan of Treatment Upcoming Encounters Date Type Department Care Team (Late st Contact Info) Description 11/16/2024 1:30 PM EDT Office Visit [facility] Plastic and Reconstructive Surgery [address] [facility] [address] Marisela Davila, ROBER-ESPERANZA [address], [address] [place] [address] documented as of this encounter Visit Diagnoses Not on filedocumented in this encounter Additional Health Concerns Infection Onset Date Last Indicated Resolved Time 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
--- OUTSIDE RECORDS SUMMARY | 2024-11-04 10:20 | XMS_ITS | Clinical Summary ---
Author Organization [facility] Address [address] [place] [address] Care Team Providers Care Trim Master Operator Name Role Phone Phys, Not On File [...] COVID-19 Vaccine ( - 2023-2 5 season) 2024 Influenza Vaccine (#1) 2024 Respiratory Syncytial Virus (RSV) or ages 60 years and older (1 - 1-dose 75+ series) 2045 Respiratory Syncytial Virus (RSV) ages 0 thru 19 months Aged Out No longer eligible based on patient's age to complete this topic Care Teams Trim Master Operator Relationship Specialty Start Date End Date Phys, Not On File PCP - General 12/08/23 Jhon Rosado MD [address] [facility] [address] [place] [id number] General Surgery 12/08/23
--- OUTSIDE RECORDS SUMMARY | 2024-11-04 10:20 | XMS_ITS | Encounter Summary ---
Author Organization [facility] Address [id number] [address] [place] [address] Care Team Providers Care Tracer Clerk Name Role Phone Amy Collier INSTRUCTIONAL MATERIALS DIRECTOR-POLYMER ENGINEER Primary Care Provider + Encounter Details Date Type Department Care Team (Late st Contact Info) Description 01/07/2024 Orders Only [facility] Infectious Disease [address] [facility] [address] [place] [address] External, Scanning Provider Social History Tobacco Use Types Packs/Day Years Used Date Smoking Tobacco: Never Smokeless Tobacco: Never Alcohol Use Standard Drinks/Week Comments Yes 0 (1 standard drink = 0.6 oz pur e alcohol) Socially [facility] Utilities Answer Date Recorded In the past 12 months has [employer] electric, gas, oil, or water company threatened [...] Date Recorded Total Score 0 03/07/2022 [facility] [place] of Occupat ional Health - Occupational Stress [...] file Travel History Travel Start Travel End [place] 09/13/2024 10/26/2024 documented as of this encounter Plan of Treatment Upcoming Encounters Date Type Department Care Team (Late st Contact Info) Description 11/16/2024 1:30 PM EDT Office Visit [facility] Plastic and Reconstructive Surgery [address] [place] [address] Marisela Davila, INSTRUCTIONAL MATERIALS DIRECTOR-POLYMER ENGINEER [address], [address] [place] [address] documented as of this encounter Procedures Procedure [...] BLOOD ORDERABLES Final Result Performing Organization Address City/State/[facility] Co de Phone Number MANUALLY TRANSCRIBED RESULTS documented in this encounter Visit Diagnoses Not on filedocumented in this encounter Additional Health Concerns Infection Onset Date Last Indicated Resolved Time SODA WORKER Comment:LT CHEST WALL TISSUE(08/12/24) 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
--- OUTSIDE RECORDS SUMMARY | 2024-11-04 10:20 | XMS_ITS | Encounter Summary ---
Author Organization [facility] Address [facility] [place] [place]-[id number] [address] [place] [address] Care Team Providers Care Sourcing Specialist Name Role Phone Amy Collier COFFEE PLANTATION WORKER-INTERMISSION COORDINATOR Primary Care Provider + Encounter Details Date Type Department Care Team (Late st Contact Info) Description 05/23/2024 Orders Only [facility] Internal Medicine - Family Medicine [address] [place] [phone] Ref Prov, [place] [address] Social History Tobacco Use Types Packs/Day Years [...] often do you attend chur ch or yazidi services? More than 4 times per year [...] Answer Date Recorded Total Score 2 03/30/2024 [facility] of Occupat ional Health - Occupational [...] Recorded Do you need help finding a [facility] career center and/or a [...] file Travel History Travel Start Travel End [place] 09/13/2024 10/26/2024 documented as of this encounter Plan of Treatment Upcoming Encounters Date Type Department Care Team (Late st Contact Info) Description 11/16/2024 1:30 PM EDT Office Visit [facility] Plastic and Reconstructive Surgery [address] [facility] [address] [place] [address] Marisela Davila, COFFEE PLANTATION WORKER-INTERMISSION COORDINATOR [address], [address] [place] [address] documented as of this encounter Goals Goal Patient Goal Type Associated Problems Recent Progress Patient-Stated? 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
--- OUTSIDE RECORDS SUMMARY | 2024-11-04 10:20 | XMS_ITS | Encounter Summary ---
Author Organization [facility] Address [facility]-[id number] [address] [place] [address] Care Team Providers Care Estimating Manager Name Role Phone Amy Collier ACID TESTER-MONONITROTOLUENE OPERATOR Primary Care Provider + Reason for Visit * Reason Onset Date Comments PT Discharge 12/04/2023 Encounter Details Date Type Department Care Team (Late st Contact Info) Description 12/04/2023 [facility] [address] [place] [address] Christopher Joe MD [address] [place] [address] PT Discharge Social History Tobacco Use Types Packs/Day Years Used Date Smoking Tobacco: Never Smokeless Tobacco: Never Alcohol Use Standard Drinks/Week Comments Yes 0 (1 standard drink = 0.6 oz pur e alcohol) Socially [facility] Utilities Answer Date Recorded In the past 12 months has [employer], gas, oil, or water company threatened to [...] often do you attend chur ch or hindu services? More than 4 times per year [...] Recorded Do you need help finding a [facility] career center and/or a training program? No [...] This patient was seen in consultation at [facility] She will not require a follow-up visit in our office, as she follows with [facility] Cardiology group Thank you documented in this encounter Plan of Treatment Upcoming Encounters Date Type Department Care Team (Late st Contact Info) Description 11/16/2024 1:30 PM EDT Office Visit [facility] Plastic and Reconstructive Surgery [address] [place] [address] Marisela Davila, ACID TESTER-MONONITROTOLUENE OPERATOR [address], [address] [place] [address] documented as of this encounter Visit Diagnoses Not on filedocumented in this encounter Additional Health Concerns Infection Onset Date Last Indicated Resolved Time LPTA Comment:LT CHEST WALL TISSUE(08/12/24) 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
--- OUTSIDE RECORDS SUMMARY | 2024-11-04 10:20 | XMS_ITS | Encounter Summary ---
Author Organization [facility] Address [facility][id number] [address] [place] [address] Care Team Providers Care Dehydrogenation Supervisor Name Role Phone Amy Collier GOLD LEAF LAYER-PROTECTION ENGINEER Primary Care Provider + Encounter Details Date Type Department Care Team (Late st Contact Info) Description 12/31/2023 Orders Only [facility] Internal Medicine - Family Medicine [address] [place] [phone] Ref Prov, [place] [address] Social History Tobacco Use Types Packs/Day Years Used Date Smoking Tobacco: Never Smokeless Tobacco: Never Alcohol Use Standard Drinks/Week Comments Yes 0 (1 standard drink = 0.6 oz pur e alcohol) Socially [employer] Utilities Answer Date Recorded In the past 12 months has [employer] electric, gas, oil, or water company threatened [...] Answer Date Recorded Total Score 0 03/07/2022 [facility] [place] of Occupat ional Health - Occupational Stress [...] Physicians Plastic and Reconstructive Surgery [address] [facility] [address] [place] [phone] Marisela Davila APRN-PROTECTION ENGINEER [address], [facility] [address] [place] [phone] documented as of this encounter Procedures Procedure [...] Infection Onset Date Last Indicated Resolved Time PHONE REPRESENTATIVE Comment:LT CHEST WALL TISSUE(08/12/24) 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
--- OUTSIDE RECORDS SUMMARY | 2024-11-04 10:20 | XMS_ITS | Encounter Summary ---
Author Organization [employer] Sys tem Address [id number] [address] [place] [address] Care Team Providers Care Mortgage Sales Manager Name Role Phone Amy Collier RAILROAD ACCOUNTANT-HEAD PAPER TESTER Primary Care Provider + Encounter Details Date Type Department Care Team (Late st Contact Info) Description 06/20/2024 Telephone [facility] Internal Medicine - Family Medicine [address] [place] [phone] Kodi Monteiro CMA Social History Tobacco Use Types Packs/Day Years Used Date Smoking Tobacco: Never Passive Smoke Exposure: Past Smokeless Tobacco: Never Alcohol Use Standard Drinks/Week Comments Yes 0 (1 standard drink = 0.6 oz pur e alcohol) Socially [employer] Utilities Answer Date Recorded In the past 12 months has [employer] electric, gas, oil, or water company threatened [...] Answer Date Recorded Total Score 2 03/30/2024 [facility] of Occupat ional Health - Occupational Stress [...] [facility] [address] [place] [address] Marisela Davila, RAILROAD ACCOUNTANT-[facility] [address], [address] [place] [address] documented as of this encounter Goals Goal Patient Goal Type Associated Problems Recent Progress Patient-Stated? 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
--- OUTSIDE RECORDS SUMMARY | 2024-11-04 10:20 | XMS_ITS | Encounter Summary ---
Author Organization [employer] Sys tem Address [facility][id number] [address] [place] [address] Care Team Providers Care Tagman Name Role Phone Amy Collier SALES SUPPORT CONSULTANT-RADIO TELEVISION TECHNICAL DIRECTOR Primary Care Provider + Encounter Details Date Type Department Care Team (Late st Contact Info) Description 06/23/2024 Telephone [facility] Plastic [facility]ive [facility] [address] [facility] [address] [place] [address] Viviane Lopez CMA Social History Tobacco Use Types Packs/Day Years Used Date Smoking Tobacco: Never Passive Smoke Exposure: Past Smokeless Tobacco: Never Alcohol Use Standard Drinks/Week Comments Yes 0 (1 standard drink = 0.6 oz pur e alcohol) Socially [employer] Utilities Answer Date Recorded In the past 12 months has [employer] electric, gas, oil, or water [employer] threatened to shut off services in your [...] any clubs o r organizations such as hinduism groups, unions, fraternal or athletic groups, or [...] Answer Date Recorded Total Score 2 03/30/2024 [facility] [place] of Occupat ional Health - Occupational Stress [...] [address] [facility] [address] [place] [address] Marisela Davila, SALES SUPPORT CONSULTANT-[facility] [address], [facility] [address] [place] [address] documented as of this encounter Goals Goal Patient Goal Type Associated Problems Recent Progress Patient-Stated? 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
--- OUTSIDE RECORDS SUMMARY | 2024-11-04 10:20 | XMS_ITS | Encounter Summary ---
Author Organization [facility] Address [facility] [place][id number] [address] [place] [address] Care Team Providers Care Pin Drafter Operator Name Role Phone Emelia Collier INVESTIGATOR UTILITY BILL COMPLAINTS-MEATCUTTER Primary Care Provider + Reason for Visit * Reason Onset Date Comments Transition Of Care 08/02/2024 Encounter Details Date Type Department Care Team (Late st Contact Info) Description 08/02/2024 Telephone [facility] [address] [place] [phone] Joelle Betancourt, handbag parts cutter Of Care Social History Tobacco Use Types [...] Answer Date Recorded Total Score 0 07/14/2024 [facility] of Occupat ional Health - [...] Specialty: Infectious Disease *Name of Discharging Facility: [facility]. Date of Facility Discharge: 07.27-07.29.24 Date of Interactive Contact and Name of Middle School Teacher: 08.02.24 1316 spoke with patient. *Medication Review Completed: No START taking: acetaminophen (TYLENOL) diazePAM (VALIUM) docusate sodium (COLACE) oxyCODONE (ROXICODONE) STOP taking: anastrozole 1 mg chemo tablet (ARIMIDEX) VERZENIO 150 mg chemo tablet (abemaciclib) Medication Reconciliation Questions/Concerns: Discussed new medication with patient. States she has medication and is taking as ordered. *Follow Up Appointments with Providers: Primary: EMELIA COLLIER APRN-ESPERANZA [phone] TBD Specialty: 08.03.24 0900 Shereen DUFFY Physicians Plastic and Reconstructive Surgery Specialty: 08.16.24 1600 [facility] Infectious Disease - [place], Review of [...] [address] [facility] [address] [place] [address] Marisela Davila, INVESTIGATOR UTILITY BILL COMPLAINTS-MEATCUTTER [address], [facility] [address] [place] [address] documented as of this encounter Goals Goal Patient Goal Type Associated Problems Recent Progress Patient-Stated? 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
--- OUTSIDE RECORDS SUMMARY | 2024-11-04 10:20 | XMS_ITS | Encounter Summary ---
Author Organization [employer] Sys tem Address [facility] [place] [id number] [address] [place] [address] Care Team Providers Care Tray Service Worker Name Role Phone Amy Collier NAIL MILL WORKER-JIG BORE OPERATOR Primary Care Provider + Encounter Details Date Type Department Care Team (Late st Contact Info) Description 11/30/2023 [facility]phone [facility] [address] [facility] [address] [place] [address] Shy Bob MA Social History Tobacco Use Types Packs/Day Years Used Date Smoking Tobacco: Never Smokeless Tobacco: Never Alcohol Use Standard Drinks/Week Comments Yes 0 (1 standard drink = 0.6 oz pur e alcohol) Socially [employer] Utilities Answer Date Recorded In the past 12 months has [employer] electric, gas, oil, or water company threatened [...] Date Recorded Total Score 0 03/07/2022 [facility] [place] of Occupat ional Health - Occupational Stress [...] 11/28/2023 2:45 PM EDT ----- Please arrange [facility] follow-up appointment. She will need to be seen on her before December 09. 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
--- OUTSIDE RECORDS SUMMARY | 2024-11-04 10:20 | XMS_ITS | Encounter Summary ---
Author Organization [facility] Address [id number] [address] [place] [address] Care Team Providers Care Veterinary X Ray Operator Name Role Phone Amy Collier RESEARCH INTERVIEWER-SERVICE DIRECTOR Primary Care Provider + Encounter Details Date Type Department Care Team (Late st Contact Info) Description 12/22/2023 Orders Only [facility] Infectious Disease [address] [facility] [address] [place] [address] External, Scanning Provider Social History Tobacco Use Types Packs/Day Years Used Date Smoking Tobacco: Never Smokeless Tobacco: Never Alcohol Use Standard Drinks/Week Comments Yes 0 (1 standard drink = 0.6 oz pur e alcohol) Socially [employer] Utilities Answer Date Recorded In the past 12 months has [employer] electric, gas, oil, or water company threatened [...] Answer Date Recorded Total Score 0 03/07/2022 [facility] [place] of Occupat ional Health - Occupational Stress [...] Reconstructive Surgery [address] [place] [address] Marisela Davila, RESEARCH INTERVIEWER-SERVICE DIRECTOR [address], [address] [place] [phone] documented as of this encounter Procedures Procedure [...] BLOOD ORDERABLES Final Result Performing Organization Address City/[facility] Co de Phone Number MANUALLY TRANSCRIBED RESULTS * Platelet count (12/17/2023) External Platelet Count 280 150 - 450 MANUALLY TRANSCRIBED RESULTS Blood 12/17/2023 us Scanning Provider External LAB BLOOD ORDERABLES Final Result Performing Organization Address City/[facility] de Phone Number MANUALLY TRANSCRIBED RESULTS * WBC (12/17/2023) External Wbc Count 5.4 4.0 - 11.0 MANUALLY TRANSCRIBED RESULTS Blood 12/17/2023 us Scanning Provider External LAB BLOOD ORDERABLES Final Result Performing Organization Address [facility] de Phone Number MANUALLY TRANSCRIBED RESULTS * (ABNORMAL) Creatinine includes GFR, serum (12/10/2023) External Creatinine 1.50(A) 0.55 - 1.02 MANUALLY TRANSCRIBED RESULTS Blood 12/10/2023 us Scanning Provider External LAB BLOOD ORDERABLES Final Result Performing Organization Address [facility] de Phone Number MANUALLY TRANSCRIBED RESULTS documented in this encounter Visit Diagnoses Not on filedocumented in this encounter Additional Health Concerns Infection Onset Date Last Indicated Resolved Time RETAIL SUPPORT MANAGER Comment:LT CHEST WALL TISSUE(08/12/24) 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
--- OUTSIDE RECORDS SUMMARY | 2024-11-04 10:20 | XMS_ITS | Encounter Summary ---
Author Organization [employer] Sys tem Address [id number] [address] [place] [address] Care Team Providers Care Flight Radio Operator Name Role Phone Amy Collier LEAD HOUSEKEEPER-HIGHWAY PATROL PILOT Primary Care Provider + Encounter Details Date Type Department Care Team (Late st Contact Info) Description 08/02/2024 [facility] [address] [place] [address] Mela Berrios RN Social History Tobacco Use Types Packs/Day Years Used Date Smoking Tobacco: Never Passive Smoke Exposure: Past Smokeless Tobacco: Never Alcohol Use Standard Drinks/Week Comments Yes 0 (1 standard drink = 0.6 oz pur e alcohol) Socially [employer] Utilities Answer Date Recorded In the past 12 months has [employer] electric, gas, oil, or water company threatened [...] 0 07/14/2024 [facility] [place] of Occupat ional Health - Occupational Stress [...] Plastic and Reconstructive Surgery [address] [facility] [address] [place] [address] Marisela Davila, LEAD HOUSEKEEPER-[address]IG[address] PATROL PILOT [address], [facility] [address] [place] [address] documented as of this encounter Goals Goal Patient Goal Type Associated Problems Recent Progress Patient-Stated? 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
--- OUTSIDE RECORDS SUMMARY | 2024-11-04 10:20 | XMS_ITS | Encounter Summary ---
Author Organization [employer] Sys tem Address [facility][id number] [address] [place] [address] Care Team Providers Care Safety Specialist Name Role Phone Amy Collier SEATER GRINDER-GEOLOGY TECHNICIAN Primary Care Provider + Encounter Details Date Type Department Care Team (Late st Contact Info) Description 09/16/2024 Telephone [facility] Plastic and Reconstructive [facility] [address] [facility] [address] [place] [address] Irvin Apodaca MA Social History Tobacco Use Types Packs/Day Years Used Date Smoking Tobacco: Never Passive Smoke Exposure: Past Smokeless Tobacco: Never Alcohol Use Standard Drinks/Week Comments Not Currently 0 (1 standard drink = 0.6 oz pur e alcohol) [facility] Utilities Answer Date Recorded In the past 12 months has [employer] electric, gas, oil, or water company threatened [...] Answer Date Recorded Total Score 0 08/10/2024 [facility] [place] of Occupat ional Health - Occupational Stress [...] Do you need help finding a [facility] and/or a training [...] 9:49 AM EDT Patient had appt with [facility] today 09/16. 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
--- OUTSIDE RECORDS SUMMARY | 2024-11-04 10:20 | XMS_ITS | Encounter Summary ---
Author Organization [employer] Sys [employer] Address [id number] [address] [place] [address] Care Team Providers Care Certified Fire Investigator Name Role Phone Amy Collier PLASTER MOLDER-DIGITAL COMPOSER Primary Care Provider + Encounter Details Date Type Department Care Team (Late st Contact Info) Description 08/02/2024 Telephone [facility] Plastic and Reconstructive Surgery [address] [facility] [address] [place] [address] Viviane Lopez CMA Social History Tobacco Use Types Packs/Day Years Used Date Smoking Tobacco: Never Passive Smoke Exposure: Past Smokeless Tobacco: Never Alcohol Use Standard Drinks/Week Comments Yes 0 (1 standard drink = 0.6 oz pur e alcohol) Socially [facility] Utilities Answer Date Recorded In the past 12 months has [employer] electric, gas, oil, or water [employer] threatened to shut off services in your [...] Answer Date Recorded Total Score 0 07/14/2024 [facility] [place] of Occupat ional Health - Occupational Stress [...] Plastic and Reconstructive Surgery [address] [facility] [address] [place] [address] Marisela Davila, PLASTER MOLDER-DIGITAL COMPOSER [address], [facility] [address] [place] [address] documented as of this encounter Goals Goal Patient Goal Type Associated Problems Recent Progress Patient-Stated? 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
--- OUTSIDE RECORDS SUMMARY | 2024-11-04 10:20 | XMS_ITS | Encounter Summary ---
Author Organization [facility] tem Address [facility] [id number] [address] [place] [address] Care Team Providers Care Bartenders Name Role Phone Amy Collier DELI CLERK-ENVIRONMENTAL PROJECT MANAGER Primary Care Provider + Reason for Referral * Diagnostic Imaging (Routine) - Closed Specialty Diagnoses / Procedures Referred By Contac t Referred To Contact Radiology Diagnoses Liver lesion Procedures IR percutaneous biopsy liver Guillaume Curiel MD [address] [place] [address] [place] [address] Phone: tel: fax: Referral ID Status Reason Start Date Expiration Date Visits Re quested Visits Authorized [id number] Closed 1 1 Encounter Details Date Type Department Care Team (Late st Contact Info) Description 07/06/2024 Orders Only [facility] Division of [facility] - Interventional Radiology [address] [place] [address] Guillaume Curiel MD [address] [place] [address] [place] [address] Liver lesion (Primary Dx) Social History Tobacco Use Types Packs/Day Years Used Date Smoking Tobacco: Never Passive Smoke Exposure: Past Smokeless Tobacco: Never Alcohol Use Standard Drinks/Week Comments Yes 0 (1 standard drink = 0.6 oz pur e alcohol) Socially AHC Utilities Answer Date Recorded In the past 12 months has [employer] electric, gas, oil, or water company threatened [...] Answer Date Recorded Total Score 2 03/30/2024 [facility] of Occupat ionne Health - Occupational Stress Questionnaire Answer Date [...] [address] CABELLO [facility] [address] [place] [address] Marisela Davila, DELI CLERK-ENVIRONMENTAL PROJECT MANAGER [address], [facility] [address] [place] [address] documented as of this encounter Goals Goal Patient Goal Type Associated Problems Recent Progress Patient-Stated? Author return home General Yes Mariah Gonsalez, RN Note: Evaluation of progress towards goal: progressing, patient will return home at discharge/follow up [facility] W[facility] care clinic documented as [...] trained personnel. A total of 30 minutes [id number] moderate sedation was provided by Dr. Luz. [...] trained personnel. A total of 30 minutes wxyk-[id number] sedation was provided by Dr. Luz. 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
--- OUTSIDE RECORDS SUMMARY | 2024-11-04 10:20 | XMS_ITS | Encounter Summary ---
Author Organization [facility] Address [facility] [id number] [address] [place] [address] Care Team Providers Care Spray Machine Loader Name Role Phone Amy Collier EVS ATTENDANT-SUPERVISOR MOLDING Primary Care Provider + Encounter Details Date Type Department Care Team (Late st Contact Info) Description 05/24/2024 Orders Only [facility] Internal Medicine - Family Medicine [address] [place] [phone] Ref Prov, [place] [address] Social History Tobacco Use Types Packs/Day Years [...] [address] CABELLO [facility] [address] [place] [address] Marisela Davila, EVS ATTENDANT-SUPERVISOR MOLDING [address], [address] [place] [address] documented as of this encounter Goals Goal Patient Goal Type Associated Problems Recent Progress Patient-Stated? 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
--- OUTSIDE RECORDS SUMMARY | 2024-11-04 10:20 | XMS_ITS | Encounter Summary ---
Author Organization [facility] Address [address] [place] [address] Care Team Providers Care Top Lift Cutter Name Role Phone Randy Lu MD Primary Care Provider Encounter Details Date Type Department Care Team (Late st Contact Info) Description 06/07/2024 Orders Only [facility] Suzanne DE S[address] [address] [place] [address] Nahomy Watson LPN [address] [facility] [place] [id number] Social History Tobacco Use Types Packs/Day Years [...] 11/24/2024 9:30 AM EDT Office Visit [facility] [address] [place] [address] Prince Jay DO [address] [place] [address] 06/12/2025 10:00 AM EDT Office Visit [facility] Suzanne DE SOUZA [address] [facility] [place] [address] Evan Thompson DO [address] [place] [address] documented as of this encounter Procedures Procedure [...] on filedocumented in this encounter Care Teams Top Lift Cutter Relationship Specialty Start Date End Date Randy Lu MD PCP - General Family Medicine 04/02/23 documented as of this encounter
--- OUTSIDE RECORDS SUMMARY | 2024-11-04 10:20 | XMS_ITS | Encounter Summary ---
Author Organization [employer] [facility] tem Address [facility] [place]-[id number] [address] [place] [address] Care Team Providers Care Payroll Services Analyst Name Role Phone Amy Collier MATERIAL HANDLING TECHNICIAN-WAITER/WAITRESS BAR Primary Care Provider + Encounter Details Date Type Department Care Team (Late st Contact Info) Description 01/18/[address] [facility] [address] [facility] [address] [place] [address] Shy Bob MA Social History Tobacco Use Types Packs/Day Years Used Date Smoking Tobacco: Never Smokeless Tobacco: Never Alcohol Use Standard Drinks/Week Comments Yes 0 (1 standard drink = 0.6 oz pur e alcohol) Socially AHC Utilities Answer Date Recorded In the past 12 months has [employer] electric, gas, oil, or water company threatened [...] Answer Date Recorded Total Score 0 03/07/2022 [facility] [place] of Occupat ional Health - Occupational Stress [...] patient is being followed and managed by [facility] ID - please fax results to [...] Reconstructive Surgery [address] [place] [address] Marisela Davila APRN-CNP [address], [address] [place] [address] documented as of this encounter Visit Diagnoses Not on filedocumented in this encounter Additional Health Concerns Infection Onset Date Last Indicated Resolved Time EYELET MACHINE OPERATOR Comment:LT CHEST WALL TISSUE(08/12/24) 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
--- OUTSIDE RECORDS SUMMARY | 2024-11-04 10:20 | XMS_ITS | Encounter Summary ---
Author Organization [facility] Address [facility] [id number] [address] [place] [address] Care Team Providers Care Job Counselor Name Role Phone Amy Collier AGRONOMIST-REVENUE STAMP CUTTER Primary Care Provider + Encounter Details Date Type Department Care Team (Late st Contact Info) Description 12/25/2023 Orders Only [facility] Infectious Disease [address] [facility] [address] [place] [address] External, Scanning Provider Social History Tobacco Use Types Packs/Day Years Used Date Smoking Tobacco: Never Smokeless Tobacco: Never Alcohol Use Standard Drinks/Week Comments Yes 0 (1 standard drink = 0.6 oz pur e alcohol) Socially AHC Utilities Answer Date Recorded In the past 12 months has [employer] electric, gas, oil, or water company threatened [...] often do you attend chur ch or adventist services? More than 4 times per year [...] Total Score 0 03/07/2022 [facility] [place] of Occupat ional Health - Occupational Stress [...] Reconstructive Surgery [address] [place] [address] Marisela Davila, AGRONOMIST-REVENUE STAMP CUTTER [address], [address] [place] [address] documented as of this encounter Procedures Procedure [...] BLOOD ORDERABLES Final Result Performing Organization Address City/State/[place] Co de Phone Number MANUALLY TRANSCRIBED RESULTS * (ABNORMAL) Creatinine includes GFR, serum (12/24/2023) External Creatinine 1.20(A) 0.55 - 1.02 MANUALLY TRANSCRIBED RESULTS Blood 12/24/2023 us Scanning Provider External LAB BLOOD ORDERABLES Final Result Performing Organization Address [facility]/[place] Co de Phone Number MANUALLY TRANSCRIBED RESULTS documented in this encounter Visit Diagnoses Not on filedocumented in this encounter Additional Health Concerns Infection Onset Date Last Indicated Resolved Time NETWORK SECURITY ADMINISTRATOR Comment:LT CHEST WALL TISSUE(08/12/24) 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
--- OUTSIDE RECORDS SUMMARY | 2024-11-04 10:20 | XMS_ITS | Encounter Summary ---
Author Organization [facility] Address [facility] [place]-[id number] [address] [place] [address] Care Team Providers Care Sports Coordinator Name Role Phone Amy Collier DIAMOND SANDER-LINK TRAINER MAINTENANCE WORKER Primary Care Provider + Encounter Details Date Type Department Care Team (Late st Contact Info) Description 01/15/2024 Orders Only [facility] Infectious Disease [address] [facility] [address] [place] [address] External, Scanning Provider Social History Tobacco Use Types Packs/Day Years Used Date Smoking Tobacco: Never Smokeless Tobacco: Never Alcohol Use Standard Drinks/Week Comments Yes 0 (1 standard drink = 0.6 oz pur e alcohol) Socially AHC Utilities Answer Date Recorded In the past 12 months has [employer] electric, gas, oil, or water company threatened [...] Answer Date Recorded Total Score 0 03/07/2022 [facility] [place] of Occupat ional Health - Occupational [...] Reconstructive Surgery [address] [place] [address] Marisela Davila, DIAMOND SANDER-LINK TRAINER MAINTENANCE WORKER [address], [address] [place] [address] documented as of this encounter Procedures Procedure [...] BLOOD ORDERABLES Final Result Performing Organization Address City/[facility] Co de Phone Number MANUALLY TRANSCRIBED RESULTS documented in this encounter Visit Diagnoses Not on filedocumented in this encounter Additional Health Concerns Infection Onset Date Last Indicated Resolved Time BASKETBALL SCOUT Comment:LT CHEST WALL TISSUE(08/12/24) 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
--- OUTSIDE RECORDS SUMMARY | 2024-11-04 10:20 | XMS_ITS | Encounter Summary ---
Author Organization [employer] tem Address [facility] [place]-[id number] [address] [place] [address] Care Team Providers Care Kit Planner Name Role Phone Amy Collier METALSMITH-TRIMMING CUTTER MACHINE Primary Care Provider + Encounter Details Date Type Department Care Team (Late st Contact Info) Description 12/15/2023 Telephone [facility] Infectious Disease [address] [facility] [address] [place] [address] Crista Mauricio CMA Social History Tobacco Use Types Packs/Day Years Used Date Smoking Tobacco: Never Smokeless Tobacco: Never Alcohol Use Standard Drinks/Week Comments Yes 0 (1 standard drink = 0.6 oz pur e alcohol) Socially [employer] Utilities Answer Date Recorded In the past 12 months has [employer] electric, gas, oil, or water company threatened [...] Answer Date Recorded Total Score 0 03/07/2022 [facility] [place] of Occupat ional Health - Occupational Stress [...] file Travel History Travel Start Travel End [place] 09/13/2024 10/26/2024 documented as of this encounter [...] 8:57 AM EDT NEW PA SUBMITTED: MARTINEZ [id number] [employer] is processing your PA request [...] [place] [employer] 2017 Your PA request for [id number] was approved for 28 days. The PA# assigned is [id number]. * Telephone Encounter - AMEENA Vallejo - 12/15/2023 8:57 AM EDT Great news! Thank you. 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
--- OUTSIDE RECORDS SUMMARY | 2024-11-04 10:21 | XMS_ITS | Encounter Summary ---
Author Organization [facility] Address [address] [place] [address] Care Team Providers Care Perlite Grinder Name Role Phone Randy Lu MD Primary Care Provider [phone] Encounter Details Date Type Department Care Team (Late st Contact Info) Description 04/07/2024 Abstract [facility] Emmanuel [address] [place] [address] Evan Thompson [address] [place], [place] [address] Social History Tobacco Use Types Packs/Day Years [...] 11/24/2024 9:30 AM EDT Office Visit [facility] [address] [place] [address] Prince Jay DO [address] [place] [address] 06/12/2025 10:00 AM EDT Office Visit [facility] Emmanuel DE SOUZA [address] [place] [address] Evan Thompson DO [address] [place] [address] documented as of this encounter Visit Diagnoses Not on filedocumented in this encounter Care Teams Perlite Grinder Relationship Specialty Start Date End Date Randy Lu MD PCP - General Family Medicine 04/02/23 documented as of this encounter
--- OUTSIDE RECORDS SUMMARY | 2024-11-04 10:21 | XMS_ITS | Encounter Summary ---
Author Organization [facility] Address [facility] [id number] [address] [place] [address] Care Team Providers Care Heavy Forger Helper Name Role Phone Amy Collier MANAGER OF ENVIRONMENTAL SERVICES-CONTRACT NEGOTIATION SPECIALIST Primary Care Provider + Encounter Details Date Type Department Care Team (Late st Contact Info) Description 05/27/2024 Orders Only [facility] Internal Medicine - Family Medicine [address] [place] [address] Ref Prov, [place] [address] Social History Tobacco Use Types Packs/Day Years [...] Recorded Do you need help finding a [facility] career [facility] and/or a training [...] [address] CABELL[address] [facility] [address] [place] [address] Marisela Davlia, MANAGER OF ENVIRONMENTAL SERVICES-CONTRACT NEGOTIATION SPECIALIST [address], [facility] [address] [place] [address] documented as of this encounter Goals Goal [...] Infection Onset Date Last Indicated Resolved Time BUSINESS APPLICATIONS MANAGER Comment:LT CHEST WALL TISSUE(08/12/24) 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
--- OUTSIDE RECORDS SUMMARY | 2024-11-04 10:21 | XMS_ITS | Encounter Summary ---
Author Organization [facility] Address [facility] [id number] [address] [place] [address] Care Team Providers Care Shelter Director Name Role Phone Amy Collier FREELANCE COPYWRITER-TRANSPLANT WORKER Primary Care Provider + Encounter Details Date Type Department Care Team (Late st Contact Info) Description 06/13/2024 Orders Only [facility] Internal Medicine - Family Medicine [address] [place] [address] Ref Prov, [place] [address] Social History Tobacco Use Types Packs/Day Years [...] Answer Date Recorded Total Score 2 03/30/2024 [facility] of Occupat ional Health - Occupational Stress [...] Recorded Do you need help finding a [facility] career [facility] and/or a training [...] [address] CABELL[address] [facility] [address] [place] [address] Marisela Davila, FREELANCE COPYWRITER-TRANSPLANT WORKER [address], [facility] [address] [place] [address] documented as of this encounter Goals Goal Patient Goal Type Associated Problems Recent Progress Patient-Stated? 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
--- OUTSIDE RECORDS SUMMARY | 2024-11-04 10:21 | XMS_ITS | Clinical Summary ---
Author Organization [facility] Address [address] [place] [address] Phone Care Team Providers Care Stage Director Name Role Phone Randy Lu Primary Care [...] quadrivalent 11/30,01/19/2017,01/07/2016,2014,01/05/2014 Influenza, seasonal, injectable 11/14/2019,12/13,12/29/2012 Novel [id number], preservative-free 01/17/2009 Tdap vaccine, age 7 year [...] 02/14/2009 Zoster Vaccines (1 of 2) 2020 Yearly Adult Physical 06/01/2024 06/01/2023, 022 Colorectal Cancer Screening 06/06/2024 FIT-DNA (Cologuard) 06/06/2024 06/06/2021 Mammogram 10/15/2024 10/16/2023, 03/0 10/2023, 03/26/2023, Additional history exists COVID-19 Vaccine ( season) 2024 12/06/2020, 11/15/2020 Influenza Vaccine (#1) 2024 0, 11/14/2019, 12/13/2018, Additional history exists Cervical Cancer [...] patient's age to complete this topic Insurance [facility] Care Teams Stage Director Relationship Specialty Start Date End Date Randy Lu DO PCP - General 07/21/22
--- OUTSIDE RECORDS SUMMARY | 2024-11-04 10:21 | XMS_ITS | Encounter Summary ---
Author Organization [facility] Address [facility] [place][id number] [address] [place] [address] Care Team Providers Care Outreach Team Member Name Role Phone Amy Collier VISUAL MERCHANDISER-BALANCE STAFF STAKER Primary Care Provider + Encounter Details Date Type Department Care Team (Late st Contact Info) Description 06/03/2024 Orders Only [facility] Internal Medicine - Family Medicine [address] [place] [address] Ref Prov, [place] [address] Social History Tobacco Use Types Packs/Day Years [...] Answer Date Recorded Total Score 2 03/30/2024 [facility] of Occupat ional [...] you need help finding a [facility] career center and/or a training [...] Plastic and Reconstructive Surgery [address] [facility] [address] [place] [address] Marisela Davila, VISUAL MERCHANDISER-BALANCE STAFF STAKER [address], [facility] [address] [place] [address] documented as of this encounter Goals Goal Patient Goal Type Associated Problems Recent Progress Patient-Stated? Author return home General Yes Mariah Gonsalez, RN Note: Evaluation of progress towards goal: progressing, patient will return home at discharge/follow up [facility] Wound care clinic documented as [...] OR DERABLES Final Result Performing Organization Address [facility] de Phone Number MANUALLY TRANSCRIBED RESULTS * Blood Culture (05/22/2024 11:17 AM EDT) Blood us Not In System Ref Prov MICROBIOLOGY - GENERAL OR DERABLES Final Result Performing Organization Address [facility] de Phone Number MANUALLY TRANSCRIBED RESULTS * Blood Culture (05/22/2024 11:15 AM EDT) Blood us Not In System Ref Prov MICROBIOLOGY - GENERAL OR DERABLES Final Result Performing Organization Address [facility] de Phone Number MANUALLY TRANSCRIBED RESULTS documented in this encounter Visit Diagnoses Not on filedocumented in this encounter Additional Health Concerns Infection Onset Date Last Indicated Resolved Time AUDIO VIDEO TECH Comment:LT CHEST WALL TISSUE(08/12/24) 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
--- OUTSIDE RECORDS SUMMARY | 2024-11-04 10:21 | XMS_ITS | Encounter Summary ---
Author Organization [facility] Address [address] [place] [address] Care Team Providers Care Manager Community Relations Name Role Phone Randy Lu MD Primary Care Provider Encounter Details Date Type Department Care Team (Late st Contact Info) Description 04/08/2024 Abstract [facility] [address] [place] [address] Evan Thompson [address] [place], [place] [address] Social History Tobacco Use Types Packs/Day Years [...] 11/24/2024 9:30 AM EDT Office Visit [facility] [address] [place] [phone] Prince Jay DO [address] [place] [address] 06/12/2025 10:00 AM EDT Office Visit [facility] [address] [place] [address] Evan Thompson DO [address] [facility] [place] [address] documented as of this encounter Visit Diagnoses Not on filedocumented in this encounter Care Teams Manager Community Relations Relationship Specialty Start Date End Date Randy Lu MD PCP - General Family Medicine 04/02/23 documented as of this encounter
--- OUTSIDE RECORDS SUMMARY | 2024-11-04 10:21 | XMS_ITS | Encounter Summary ---
Author Organization [employer] Address [facility] [place]-[id number] [address] [place] [address] Care Team Providers Care Oracle Hyperion Consultant Name Role Phone Amy Collier POLICE STENOGRAPHER-SKULL GRINDER Primary Care Provider + Encounter Details Date Type Department Care Team (Late st Contact Info) Description 05/25/2024 [facility] [address] [facility] [address] [place] [address] Shereen Mortensen PA-C [address], [facility] [address] [place] [address] Social History Tobacco Use Types Packs/Day Years Used Date Smoking Tobacco: Never Passive Smoke Exposure: Past Smokeless Tobacco: Never Alcohol Use Standard Drinks/Week Comments Yes 0 (1 standard drink = 0.6 oz pur e alcohol) Socially [facility] Utilities Answer Date Recorded In the past 12 months has [employer], gas, oil, or water [employer] threatened to shut off services in your [...] Date Recorded Total Score 2 03/30/2024 [facility] [...] me that she was [facility] with fever and chills. Per patient, there [...] her to provide my number to the long term care social worker and I can fax the current completed [facility] paperwork to them to submit so that the vac can be delivered to the hospital prior to her discharge. We will plan to schedule her for follow up in the office pending timing of her discharge [facility] 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
--- OUTSIDE RECORDS SUMMARY | 2024-11-04 10:21 | XMS_ITS | Encounter Summary ---
Author Organization [employer] Address [facility] [id number] [address] [place] [address] Care Team Providers Care Sport Internship Name Role Phone Amy Collier IT RISK AND ASSURANCE MANAGER-CHANNEL MANAGER Primary Care Provider + Reason for Visit * Reason Comments Med Refill Encounter Details Date Type Department Care Team (Late st Contact Info) Description 01/24/2022 Refill [facility] - Family Medicine [address] [place] [phone] Lynda Manuel, IT RISK AND ASSURANCE MANAGER-ACCOUNTS RECEIVABLE COORDINATOR [address] [place] [address] Social History Tobacco Use Types Packs/Day Years [...] Physicians Plastic and Reconstructive Surgery [address] [facility] [address] [place] [address] Marisela Davila, IT RISK AND ASSURANCE MANAGER-CHANNEL MANAGER [address], [facility] [address] [place] [address] documented as of this encounter Visit Diagnoses Not on filedocumented in this encounter Additional Health Concerns Infection Onset Date Last Indicated Resolved Time Influenza 03/07/2022 03/07/2022 03/14/2022 11:1 2 PM EST RELATIONSHIP MANAGEMENT LEAD Comment:LT CHEST WALL TISSUE(08/12/24) 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
--- OUTSIDE RECORDS SUMMARY | 2024-11-04 10:21 | XMS_ITS | Encounter Summary ---
Author Organization [facility] Address [address] [place] [address] Care Team Providers Care Pneumatic Tube Fitter Name Role Phone Randy Lu MD Primary Care Provider Encounter Details Date Type Department Care Team (Late st Contact Info) Description 04/07/2024 Abstract [facility] [address] [place] [address] Evan Thompson [address] [place], [place] [address] Social History Tobacco Use Types Packs/Day Years [...] 11/24/2024 9:30 AM EDT Office Visit [facility] [address] [place] [phone] Prince Jay DO [address] [place] [address] 06/12/2025 10:00 AM EDT Office Visit [facility] [address] [place] [address] Evan Thompson DO [address] [facility] [place] [address] documented as of this encounter Visit Diagnoses Not on filedocumented in this encounter Care Teams Pneumatic Tube Fitter Relationship Specialty Start Date End Date Randy Lu MD PCP - General Family Medicine 04/02/23 documented as of this encounter
--- OUTSIDE RECORDS SUMMARY | 2024-11-04 10:21 | XMS_ITS | Encounter Summary ---
Author Organization [facility] Address [id number] [address] [place] [address] Care Team Providers Care Timber Skidder Name Role Phone Amy Collier DOUGHNUT MACHINE OPERATOR-PUBLIC HEALTH PROGRAM MANAGER Primary Care Provider + Encounter Details Date Type Department Care Team (Late st Contact Info) Description 03/07/2022 Orders Only [facility] - Family Medicine [address] [place] [phone] Amy Collier APRN-PUBLIC HEALTH PROGRAM MANAGER [address] [place] [address] Social History Tobacco Use Types Packs/Day Years [...] Answer Date Recorded Total Score 0 03/07/2022 [facility] of Occupat ional Health - Occupational Stress [...] Travel Start Travel End [place] 09/13/2024 10/26/2024 COVID-19 Exposure Response Date Recorded [...] Reconstructive Surgery [address] [place] [address] Marisela Davila APRN-CNP [address], [address] [place] [address] documented as of this encounter [...] 03/07/2022 03/07/2022 03/14/2022 11:1 2 PM EST COLLATOR HAND Comment:LT CHEST WALL TISSUE(08/12/24) 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
--- OUTSIDE RECORDS SUMMARY | 2024-11-04 10:21 | XMS_ITS | Clinical Summary ---
Author Organization [facility] Address [address] [place] [address] Care Team Providers Care Supervising Producer Name Role Phone Randy Lu MD Primary Care Provider [phone] Allergies Active Allergy Reactions Criticality Noted Date [...] Care Team Description 2024 Abstract [facility] [address] [place] [address] [place] [address] Evan Thompson DO from Last 3 Months [...] 11/24/2024 9:30 AM EDT Office Visit [facility] [address] [place] [address] Zahler, Prince D, DO [address] [place] [address] 06/12/2025 10:00 AM EDT Office Visit [facility] [address] [facility] [place] [address] Evan Thompson, DO [address] [facility] [address] [place] [place], [place] [id number] Health Maintenance Due Date Last Done Comments [...] Narrative 12/27/2021 12:00 PM EDT PERFORMED AT [facility] LOCATION:[id number] Procedure Note CONVERSION, GENERIC - 09/05/2022 PERFORMED AT [facility] LOCATION:[id number] Bo Melendez MD IMG BI PROCEDURES Final Resul t from Last 3 Months or Most Recently Relevant to Health Maintenance Insurance [employer] MEDICAID Care Teams Supervising Producer Relationship Specialty Start Date End Date Randy Lu MD PCP - General Family Medicine 04/02/23
--- OUTSIDE RECORDS SUMMARY | 2024-11-04 10:21 | XMS_ITS | Encounter Summary ---
Author Organization [employer] Address [facility] [place]-[id number] [address] [place] [address] Care Team Providers Care Dinkey Operator Name Role Phone Amy Collier CONTRACTS LAW PROFESSOR-ACTIVE DIRECTORY SYSTEMS ADMINISTRATOR Primary Care Provider + Encounter Details Date Type Department Care Team (Late st Contact Info) Description 11/27/2021 Orders Only [facility] - Family Medicine [address] [place] [address] Nat Javed CMA Social History [...] Travel Start Travel End [place] 09/13/2024 10/26/2024 COVID-19 Exposure Response Date Recorded [...] Physicians Plastic and Reconstructive Surgery [address] [facility] [address] [place] [address] Marisela Davila, CONTRACTS LAW PROFESSOR-ACTIVE DIRECTORY SYSTEMS ADMINISTRATOR [address], [facility] [address] [place] [address] documented as of this encounter Visit Diagnoses Not on filedocumented in this encounter Additional Health Concerns Infection Onset Date Last Indicated Resolved Time Influenza 03/07/2022 03/07/2022 03/14/2022 11:1 2 PM EST SUSTAINABILITY CONSULTANT Comment:LT CHEST WALL TISSUE(08/12/24) 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
--- OUTSIDE RECORDS SUMMARY | 2024-11-04 10:21 | XMS_ITS | Encounter Summary ---
Author Organization [facility] Address [facility] [place] [address] Care Team Providers Care Methods Analyst Name Role Phone Nilda Carolina RICHTER Unavailable [phone] Jessica Hope MD Unavailable [phone] Lynda Manuel CATHETER BUILDER Primary Care Provider [phone] Shereen Smallwood PA-C Unavailable [phone] Radha Martinez RN Unavailable Amy Collier PRIVATE ADVISOR Primary Care Provider [phone] Source Comments In the event this information is protected by the Federal Confidentiality of Alcohol and Drug AbusePatient Records regulations: The Federal rules restrict any use of the information to criminally investigate or prosecute any alcohol or drug abuse patient.[facility] Encounter Details Date Type Department Care Team (Late st Contact Info) Description 05/31/2024 Lab Requisition [facility] [address] [place] [address] Jessica Hope MD [address] [place] [address] Person encountering health services to consult [...] Info) Description 11/29/2024 10:20 AM EDT Appointment [facility] Radiology MRI [address] [place] [address] With Perfusion 11/29/2024 1:00 PM EDT Office Visit [facility] [address] [place] [address] Anitra Walters MD [address] [place] [address] Diagnostics, Eye Tech And [address] [address] Cataract Eval 12/01/2024 2:00 PM EDT [facility] [address] [place] [address] Carlos Mccain DO, PhD [address] [facility] [address] [place] [address] Established patient Visit with Dr. Mccain for [...] Case Report Bone Marrow Pathology Report Case: [id number] Authorizing Provider: Jessica Hope MD Collected: 05/31/2024 09:19 PM Ordering Location: [facility] Main Received: 05/31/2024 09:20 PM [facility] Pathologist: Deidre Avelar MD, PhD Specimen: Slide(s), 13 SLIDES [id number] 06/12/2024 11:59 AM EDT [facility] FINAL DIAGNOSIS A. Outside materials received from [place], [place] (External ID [id number], 05/12/2024) Bone marrow aspirate smears, touch imprints, core biopsy and clot section: -Cellular bone marrow with maturing trilineage hematopoiesis and increased ring sideroblasts. -Increased storage iron. -See comment. Peripheral blood smear: -Pancytopenia [facility] June 11, 2024 06/12/2024 11:59 AM EDT [facility] at 1159 EDT Diagnosis Comment [...] Linezolid is associated with ring sideroblasts (PMID: [id number]) and may cause bone marrow suppression. Tedezolid is in the same class, although may be associated with less bone marrow suppression (PMID: [id number]). Overall, given the absence of evidence of clonal hematopoeisis, interval resampling following completion of the the antibiotic course may be helpful to further clarify, if cytopenias persist. Please do not hesitate to contact the Hematopathology Consult Service at [phone] for any questions or if additional follow-up information becomes available. 06/12/2024 11:59 AM EDT [facility] Microscopic Description PERIPHERAL BLOOD: CBC (05/12/2024) [...] lobation. Other: Additional stains are performed at [facility] to further clarify the morphologic findings. CD34 [...] Performed. 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 06/12/2024 11:59 AM EDT [facility] Clinical History CONSULT REQUESTED 06/12/2024 11:59 AM EDT [facility] Performing Lab Diagnostic interpretation performed at: [facility], [address] [place] [address], [place] [address] CLIA# [id number] Wrap Checker: Derick Meadows MD 06/12/2024 11:59 AM EDT [facility] Disclaimer Laboratory Developed Test (LDT) Disclaimer: Performance characteristics of immunohistochemica l, immunofluorescent, and chromogenic in-situ hybridization tests have been determined by the performing laboratory within [facility]'s [facility] Pathology and Laboratory Medicine Department ([facility], [facility], [facility], [facility], [facility], [facility], or [facility]) in a manner consistent with CLIA requirements. One or more of these tests may not have been cleared or approved by the FDA. [facility] is regulated under CLIA as qualified to perform high-complexity testing. These tests are used for clinical purposes. These should not be regarded as investigational or for research. Positive and negative controls stain appropriately. 06/12/2024 11:59 AM EDT [facility] Blocks or Slides MICROSCOPE SLIDE / Unknown 05/31/2024 9:19 PM EDT 05/31/2024 9:20 PM EDT us Jessica Hope MD SURGICAL PATHOLOGY Final Resul t [facility] [address] [facility] [place] [address] [place] [address], documented in this encounter Visit Diagnoses Diagnosis Person encountering health services to consult on behalf of another person Other person consulting on behalf of another person documented in this encounter Care Teams Methods Analyst Relationship Specialty Start Date End Date Lynda Manuel, CATHETER BUILDER [address] [place] [address] PCP - General Family Medicine 06/14/24 09/26/24 Amy Collier, MONICA [address] [place] [address] PCP - General Family Medicine 09/27/24 Carolina Munguia APRN [address] [facility] [address] [place] [address] 12/04/23 Jessica Hope MD [address] [place] [address] Referring Hematology/Oncology 06/14/24 Shereen Smallwood PA-C [address] [facility] [address] [place] [address] [facility] Referring Orthopedics 06/15/24 [place] [address] [place] [address] Specialty Hypo Splasher Hematology/Oncology 07/31/24 documented as of this encounter
--- OUTSIDE RECORDS SUMMARY | 2024-11-04 10:21 | XMS_ITS | Encounter Summary ---
Author Organization [facility] Address [facility] [id number] [address] [place] [address] Care Team Providers Care Meat Puller Name Role Phone Amy Collier GIS DEVELOPER-REHABILITATION COUNSELLOR Primary Care Provider + Encounter Details Date Type Department Care Team (Late st Contact Info) Description 11/25/2023 Orders Only [facility] [address] [facility] [address] [place] [address] Marisela Davila, [facility] [address], [address] [place] [address] Social History Tobacco Use Types Packs/Day Years Used Date Smoking Tobacco: Never Smokeless Tobacco: Never Alcohol Use Standard Drinks/Week Comments Yes 0 (1 standard drink = 0.6 oz pur e alcohol) Socially [facility] Utilities Answer Date Recorded In the past 12 months has [employer], gas, oil, or water [email or web address] threatened to shut off services in your [...] Recorded Do you need help finding a [facility] career center and/or a training program? 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
--- OUTSIDE RECORDS SUMMARY | 2024-11-04 10:21 | XMS_ITS | Encounter Summary ---
Author Organization [facility] Address [facility] [place]-[id number] [address] [place] [address] Care Team Providers Care Fiber Analyst Name Role Phone Amy Collier PROTOHISTORIAN-REFINERY OPERATOR GAS PLANT Primary Care Provider + Reason for Referral * Diagnostic Imaging (Routine) - Pending Review Specialty Diagnoses / Procedures Referred By Contac t Referred To Contact Radiology Diagnoses Pain Procedures NON [facility] PET CT WHOLE BODY [facility] [address] [place] [phone] Phone: tel: fax: Referral ID Status Reason Start Date Expiration Date V isits Requested Visits Authorized [id number] Pending Review 06/12/2024 06/12/2025 1 1 Encounter Details Date Type Department Care Team (Late st Contact Info) Description 06/12/2024 Orders Only [facility] [address] [place] [phone] Transcribe, Orders Support User Pain (Primary [...] Date Recorded Total Score 2 03/30/2024 [facility] of Occupat ional Health - [...] Reconstructive Surgery [address] [place] [address] Marisela Davila, PROTOHISTORIAN-REFINERY OPERATOR GAS PLANT [address], [address] [facility] [place] [place] [address] documented as of this encounter Goals Goal Patient Goal Type Associated Problems Recent Progress Patient-Stated? Author return home General Yes Mariah Gonsalez, RN Note: Evaluation of progress towards goal: progressing, patient will return home at discharge/follow up [facility] W[facility] clinic documented as of this encounter Results * NON [facility] PET [facility] WHOLE BODY (06/03/2024 11:05 AM EDT) us Scanning Provider External IMG PET ORDERABLES Fi nal Result documented in this encounter Visit Diagnoses Diagnosis Pain- Primary Generalized pain documented in this encounter Additional Health Concerns Infection Onset Date Last Indicated Resolved Time CARDIOVASCULAR SONOGRAPHER Comment:LT CHEST WALL TISSUE(08/12/24) 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
--- OUTSIDE RECORDS SUMMARY | 2024-11-04 10:21 | XMS_ITS | Encounter Summary ---
Author Organization [employer] Address [id number] [address] [place] [address] Care Team Providers Care Aerial Installer Name Role Phone Amy Collier EXECUTIVE HOUSEKEEPER-COPPER PLATE PRINTER Primary Care Provider + Reason for Referral * Diagnostic Imaging (Routine) - Pending Review Specialty Diagnoses / Procedures Referred By Contac t Referred To Contact Radiology Diagnoses Pain Procedures CT abdomen and pelvis with contrast [facility] [address] [place] [phone] Phone: tel: fax: Referral ID Status Reason Start Date Expiration Date V isits Requested Visits Authorized [id number] Pending Review 06/13/2024 06/13/2025 1 1 * Diagnostic Imaging (Routine) - Pending Review Specialty Diagnoses / Procedures Referred By Contac t Referred To Contact Radiology Diagnoses Pain Procedures CT chest with contrast [facility] [address] [place] [phone] Phone: tel: fax: Referral ID Status Reason Start Date Expiration Date V isits Requested Visits Authorized [id number] Pending Review 06/13/2024 06/13/2025 1 1 Encounter Details Date Type Department Care Team ([facility] st Contact Info) Description 06/13/2024 Orders Only [facility] [address] [place] [phone] Transcribe, Orders Support User Pain (Primary Dx) Social History Tobacco Use Types Packs/Day Years Used Date Smoking Tobacco: Never Passive Smoke Exposure: Past Smokeless Tobacco: Never Alcohol Use Standard Drinks/Week Comments Yes 0 (1 standard drink = 0.6 oz pur e alcohol) Socially [facility] Utilities Answer Date Recorded In [...] week 02/27/2022 How often do you attend [facility] or jew services? More than 4 times per year [...] Answer Date Recorded Total Score 2 03/30/2024 [facility] [place] of Occupat ional Health - Occupational Stress [...] Recorded Do you need help finding a [facility] care system Snaptrip center and/or a training program? No 02/27/2022 [...] Physicians Plastic and Reconstructive Surgery [address] [address] Marisela Davila, EXECUTIVE HOUSEKEEPER-COPPER PLATE PRINTER [address], [address] [place] [address] documented as of this encounter Goals Goal Patient Goal Type Associated Problems Recent Progress Patient-Stated? 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
--- OUTSIDE RECORDS SUMMARY | 2024-11-04 10:21 | XMS_ITS | Encounter Summary ---
Author Organization [employer] Address [facility] [id number] [address] [place] [address] Care Team Providers Care Technical Coordinator Name Role Phone Amy Collier PERMIT SPECIALIST-MANNEQUIN MOLD MAKER Primary Care Provider + Encounter Details Date Type Department Care Team (Late st Contact Info) Description 02/[facility]20[facility] [address] [place] [address] Radha Tineo MA Social History [...] How often do you attend [facility] or moravian services? More than 4 times [...] Answer Date Recorded Total Score 0 02/27/2022 [facility] of Occupat ional Health - Occupational Stress [...] Travel Start Travel End [place] 09/13/2024 10/26/2024 COVID-19 Exposure Response Date Recorded [...] Patient notified and understands. Transferred to [facility] to get scheduled for a [...] Plastic and Reconstructive Surgery [address] [facility] [address] [place] [address] Marisela Davila, PERMIT SPECIALIST-MANNEQUIN MOLD MAKER [address], [facility] [address] [place] [address] documented as of this encounter Visit Diagnoses Not on filedocumented in this encounter Additional Health Concerns Infection Onset Date Last Indicated Resolved Time Influenza 03/07/2022 03/07/2022 03/14/2022 11:1 2 PM EST TABULAR TYPIST Comment:LT CHEST WALL TISSUE(08/12/24) 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
--- OUTSIDE RECORDS SUMMARY | 2024-11-04 10:21 | XMS_ITS | Encounter Summary ---
Author Organization [facility] Address [id number] [address] [place] [address] Care Team Providers Care Hosiery Knitter Name Role Phone Amy Collier ASSOCIATE FINANCIAL REPRESENTATIVE-MANUFACTURING ENGINEER ASSEMBLY Primary Care Provider + Encounter Details Date Type Department Care Team (Late Contact Info) Description 12/26/2021 Orders Only [facility] Family Medicine [address] [facility] [place] [phone] Ref Prov, [place] [address] Social History Tobacco Use Types Packs/Day Years [...] Travel Start Travel End [place] 09/13/2024 10/26/2024 COVID-19 Exposure Response Date Recorded [...] Physicians Plastic and Reconstructive Surgery [address] [facility] [address] [place] [address] Marisela Davila, ASSOCIATE FINANCIAL REPRESENTATIVE-MANUFACTURING ENGINEER ASSEMBLY [address] , [facility] [address] [place] [address] documented as of this encounter [...] 03/07/2022 03/07/2022 03/14/2022 11:1 2 PM EST DRY HOUSE OPERATOR Comment:LT CHEST WALL TISSUE(08/12/24) 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
--- OUTSIDE RECORDS SUMMARY | 2024-11-04 10:22 | XMS_ITS | Encounter Summary ---
Author Organization Aff[employer] tem Address [id number] [address] [place] [address] Care Team Providers Care Weigh And Charge Worker Name Role Phone Amy Collier METER MAKER-BIGHT MAKER Primary Care Provider + Encounter Details Date Type Department Care Team (Latest Contact Info) Description 10/26/2024 Travel Social History Tobacco Use Types Packs/Day Years Used Date Smoking Tobacco: Never Passive Smoke Exposure: Past Smokeless Tobacco: Never Alcohol Use Standard Drinks/Week Comments Not Currently 0 (1 standard drink = 0.6 oz pur e alcohol) [facility] Utilities Answer Date Recorded In the past 12 months has [employer] electric, gas, oil, or water company threatened [...] 02/27/2022 How often do you attend [facility] or temple services? More than 4 times [...] Answer Date Recorded Total Score 0 08/10/2024 [facility] of Occupat ional Health [...] Recorded Do you need help finding a [facility] and/or a training [...] [address] [facility] [address] [place] [address] Marisela Davila, METER MAKER-BIGHT MAKER [address], [facility] [address] [place] [address] documented as of this encounter [...] Infection Onset Date Last Indicated Resolved Time INDUSTRIAL TRAINING SPECIALIST Comment:LT CHEST WALL TISSUE(08/12/24) 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
--- OUTSIDE RECORDS SUMMARY | 2024-11-04 10:22 | XMS_ITS | Encounter Summary ---
Author Organization [facility] Address [facility] [place] [address] Care Team Providers Care News Specialist Name Role Phone Nilda Carolina RICHTER Unavailable [phone] Jessica Hope MD Unavailable [phone] Lynda Manuel CHILD ADOLESCENT PSYCHIATRIST Primary Care Provider [phone] Shereen Smallwood PA-C Unavailable [phone] Radha Martinez RN Unavailable Amy Collier UI DESIGNER Primary Care Provider [phone] Source Comments In the event this information is protected by the Federal Confidentiality of Alcohol and Drug AbusePatient Records regulations: The Federal rules restrict any use of the information to criminally investigate or prosecute any alcohol or drug abuse patient.[facility] Encounter Details Date Type Department Care Team (Late st Contact Info) Description 07/22/2024 Lab Requisition [facility] [place] [address] [place] [address] [place] [address] Person encountering health services to [...] lower risk 7 07/21/2024 Data from: [email or web address] Last address used for calculation [...] Appointment [facility] [place] [address] [place] [address] With Perfusion 11/29/2024 1:00 PM EDT Office Visit [facility] Ophthalmology [address] [place] [address] Anitra Walters MD [address] [place] [address] Diagnostics, [facility] [address] [address] Cataract Eval 12/01/2024 2:00 PM EDT [facility] [address] [place] [address] Carlos Mccain DO, PhD [address] [place], [place] [id number] Established patient Visit with Dr. Mccain for [...] EDT) Case Report Surgical Pathology Report Case: [id number] Authorizing Provider: Aurelia Oneill MD Collected: 07/22/2024 03:52 PM Ordering Location: [facility] Received: 07/22/2024 03:51 PM [facility] Pathologist: Michael López MD Specimen: Slide(s), 11 SLIDES [id number] 08/09/2024 9:01 AM EDT [facility] FINAL DIAGNOSIS Liver mass, biopsy: - Adenocarcinoma, compatible with breast origin. 08/09/2024 9:01 AM EDT [facility] at 1337 EDT Diagnosis Comment Tumor cells are positive for CK7 and GATA3, with weak expression for ER. Negative stains include CK19, TX, and CDX2. 08/09/2024 9:01 AM EDT [facility] Performing Lab Diagnostic interpretation performed at: [facility], [address] [place] [address], [place] [address] CLIA# [id number] Recycling Sorter: Derick Meadows MD 08/09/2024 9:01 AM EDT [facility] Addendum Breast biomarkers (ER, PgR, and HER2) performed at the outside institution are available for review at the [facility] and demonstrate the tumor cells to be positive for ER (30% nuclear staining of tumor cells with moderate staining intensity), negative for TX (<1% nuclear staining of tumor cells), and negative for HER2 (score of 1+). RS/rsh 08/09/24 08/09/2024 9:01 AM EDT [facility] Addendum electronically signed by Kev Kang MD on 08/09/2024 at 0901 EDT Disclaimer Laboratory Developed Test (LDT) Disclaimer: Performance characteristics of immunohistochemica l, immunofluorescent, and chromogenic in-situ hybridization tests have been determined by the performing laboratory within [facility]'s Yunior Lala Pathology and Laboratory Medicine Department ([facility], [facility], [facility], [facility], [facility], [facility], or [facility]) in a manner consistent with CLIA requirements. One or more of these tests may not have been cleared or approved by the FDA. [facility] is regulated under CLIA as qualified to perform high-complexity testing. These tests are used for clinical purposes. These should not be regarded as investigational or for research. Positive and negative controls stain appropriately. 08/09/2024 9:01 AM EDT [facility] Blocks or Slides MICROSCOPE SLIDE / Unknown 07/22/2024 3:52 PM EDT 07/22/2024 3:51 PM EDT us Aurelia Oneill MD SURGICAL PATHOLOGY Edited Result - Final [facility] [address] [facility] [address] [address], documented in this encounter Visit Diagnoses Diagnosis Person encountering health services to consult on behalf of another person Other person consulting on behalf of another person documented in this encounter Care Teams News Specialist Relationship Specialty Start Date End Date Lynda Manuel, ESPERANZA [address] [place] [address] PCP - General Family Medicine 06/14/24 09/26/24 Amy Collier NP [address] [place] [address] PCP - General Family Medicine 09/27/24 Carolina Munguia APRN [address] [facility] [address] [place] [address] 12/04/23 Jessica Hope MD [address] [place] [address] Referring Hematology/Oncology 06/14/24 Shereen Smallwood PA-C [address] [address] [facility] Referring Orthopedics 06/15/24 [place] [address] [place] [address] Specialty Cheese Packer Hematology/Oncology 07/31/24 documented as of this encounter
--- OUTSIDE RECORDS SUMMARY | 2024-11-04 10:22 | XMS_ITS | Encounter Summary ---
Author Organization [employer] Address [facility] [id number] [address] [place] [address] Care Team Providers Care Foreign Banknote Teller Trader Name Role Phone Amy Collier GARBAGE PICK UP MAN-WIRE DRAWING SETTER Primary Care Provider + Reason for Referral * Diagnostic Imaging (Routine) - Pending Review Specialty Diagnoses / Procedures Referred By Contac t Referred To Contact Radiology Diagnoses Pain Procedures NON [facility] PET CT WHOLE BODY [facility] [address] [place] [phone] Phone: tel: fax: Referral ID Status Reason Start Date Expiration Date V isits Requested Visits Authorized [id number] Pending Review 10/25/2024 10/25/2025 1 1 Encounter Details Date Type Department Care Team (Late st Contact Info) Description 10/25/2024 Orders Only [facility] [address] [place] [phone] External, Scanning Provider Pain (Primary Dx) Social History Tobacco Use Types Packs/Day Years Used Date Smoking Tobacco: Never Passive Smoke Exposure: Past Smokeless Tobacco: Never Alcohol Use Standard Drinks/Week Comments Not Currently 0 (1 standard drink = 0.6 oz pur e alcohol) [facility] Utilities Answer Date Recorded In [...] Answer Date Recorded Total Score 0 08/10/2024 [facility] [place] of Occupat ional Health - Occupational Stress [...] and Reconstructive Surgery [address] [facility] [address] [place] [address] Marisela Davila, GARBAGE PICK UP MAN-WIRE DRAWING SETTER [address], [address] [place] [address] documented as of this encounter Goals Goal Patient Goal Type Associated Problems Recent Progress Patient-Stated? Author return home General Yes Mariah Gonsalez, RN Note: Evaluation of progress towards goal: progressing, patient will return home at discharge/follow up [facility] documented as of this encounter Results * NON [facility] PET CT WHOLE BODY (2024 4:00 PM EDT) us Scanning Provider External IMG PET ORDERABLES Fi nal Result documented in this encounter Visit Diagnoses Diagnosis Pain- Primary Generalized pain documented in this encounter Additional Health Concerns Infection Onset Date Last Indicated Resolved Time EFFERVESCENT SALTS COMPOUNDER Comment:LT CHEST WALL TISSUE(08/12/24) 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
--- OUTSIDE RECORDS SUMMARY | 2024-11-04 10:22 | XMS_ITS | Encounter Summary ---
Author Organization [employer] Address [facility] [id number] [address] [place] [address] Care Team Providers Care Automatic Spinning Lathe Setter Name Role Phone Amy Collier ELECTRIC METER INSTALLER-HEALTH AND SOCIAL CARE TEACHER Primary Care Provider + Encounter Details Date Type Department Care Team (Late st Contact Info) Description 11/01/2024 Telephone [facility] Surgical Oncology [address] [facility] [address] [place] [address] Shanice Johnson RN Social History Tobacco Use Types Packs/Day Years Used Date Smoking Tobacco: Never Passive Smoke Exposure: Past Smokeless Tobacco: Never Alcohol Use Standard Drinks/Week Comments Not Currently 0 (1 standard drink = 0.6 oz pur e alcohol) [facility] Utilities Answer Date Recorded In the past 12 months has [employer] electric, gas, oil, or water company threatened [...] Answer Date Recorded Total Score 0 08/10/2024 [facility] [place] of Occupat ional Health - Occupational Stress [...] [address] [facility] [address] [place] [address] Marisela Davila, ELECTRIC METER INSTALLER-HEALTH AND SOCIAL CARE TEACHER [address], [address] [place] [address] documented as of this encounter Goals Goal Patient Goal Type Associated Problems Recent Progress Patient-Stated? 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
--- OUTSIDE RECORDS SUMMARY | 2024-11-04 10:23 | XMS_ITS | Encounter Summary ---
Author Organization [facility] Address [facility] [place][id number] [address] [place] [address] Care Team Providers Care Plumber Name Role Phone Amy Collier REPAIRER GENERAL-PRETZEL PACKER Primary Care Provider + Reason for Visit * Reason Comments Med Refill Encounter Details Date Type Department Care Team (Late st Contact Info) Description 04/28/2022 Refill [facility]icians Internal Medicine - Family Medicine [address] [place] [address] [facility] [address] [place] [address] Social History Tobacco Use Types Packs/Day Years [...] Answer Date Recorded Total Score 0 03/07/2022 [facility] of Occupat ional Health - Occupational Stress [...] Reconstructive Surgery [address] [place] [address] Marisela Davila APRN-CNP [address], [address] [place] [address] documented as of this encounter Visit Diagnoses Not on filedocumented in this encounter Additional Health Concerns Infection Onset Date Last Indicated Resolved Time ANNUAL GIVING OFFICER Comment:LT CHEST WALL TISSUE(08/12/24) 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
--- OUTSIDE RECORDS SUMMARY | 2024-11-04 10:23 | XMS_ITS | Encounter Summary ---
Author Organization [employer] Address [id number] [address] [place] [address] Care Team Providers Care Legal Nurse Consultant Name Role Phone Amy Collier CONTINUOUS IMPROVEMENT COORDINATOR-BOAT JOINER Primary Care Provider + Reason for Referral * Misc (Routine) - Closed Specialty Diagnoses / Procedures Referred By Contac t Referred To Contact Diagnoses Malignant neoplasm of lower-inner quadrant of right breast of female, estrogen receptor positive (CMS-HCC) Procedures Follow anesthesia guideines Christy He MD [address] [place] [address] Phone: tel: fax: Referral ID Status Reason Start Date Expiration Date Visits Re quested Visits Authorized [id number] Closed 10/02/2023 10/01/2024 1 1 Encounter Details Date Type Department Care Team (Late st Contact Info) Description 10/02/2023 Orders Only [facility] [address] [place] [address] Christy He MD [address] [place] [address] Malignant neoplasm of lower-inner quadrant of [...] Recorded Total Score 0 03/07/2022 [facility] of Occupat ional Health - Occupational [...] Plastic and Reconstructive Surgery [address] [facility] [address] [place] [address] Marisela Davila, CONTINUOUS IMPROVEMENT COORDINATOR-BOAT JOINER [address], [facility] [address] [place] [address] Scheduled Orders Name Type Priority Associated Diagnoses Orde r Schedule Mammography specimen films right Imaging Routine Malignant neoplasm of lower-inner quadrant of right breast of female, estrogen receptor positive ([facility]-HCC) 1 Occurrences starting 10/02/2023 until 10/01/2024 documented as of this encounter Results * Ultrasound guided localization breast initial right (10/16/2023 2:08 PM EDT) Anatomical Region Laterality Modality Breast Right Ultrasound 10/16/2023 2:27 PM EDT Narrative 10/16/2023 2:32 PM EDT YASMIN FLANNERY 1970 [id number], [id number] EXAM: MAMM POST BX DIAG UNI RT, [...] Miller MD - 10/16/2023 YASMIN FLANNERY 1970 [id number], [id number] EXAM: MAMM POST BX DIAG UNI RT, [...] Infection Onset Date Last Indicated Resolved Time AIR SURVEILLANCE OPERATOR Comment:LT CHEST WALL TISSUE(08/12/24) 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
--- OUTSIDE RECORDS SUMMARY | 2024-11-04 10:23 | XMS_ITS | Encounter Summary ---
[facility] [id number] [address] [place] [address] Care Team Providers Care Hospital Director Name Role Phone Amy Collier BOWLING BALL ASSEMBLER-BATH MIXER Primary Care Provider + Encounter Details Date Type Department Care Team (Late st Contact Info) Description 09/14/2023 Orders Only [facility] Internal Medicine - Family Medicine [address] [place] [phone] Ref Prov, [place] [address] Social History Tobacco Use Types Packs/Day Years [...] Surgery [address] [place] [address] Marisela Davila, BOWLING BALL ASSEMBLER-BATH MIXER [address] [place] [address] documented as of this encounter [...] Onset Date Last Indicated Resolved Time SCIENCE MANAGER Comment:LT CHEST WALL TISSUE(08/12/24) 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
--- OUTSIDE RECORDS SUMMARY | 2024-11-04 10:23 | XMS_ITS | Encounter Summary ---
Author Organization [facility] Address [facility] [id number] [address] [place] [address] Care Team Providers Care Mounting Machine Operator Name Role Phone Amy Collier TOOL CRIB CLERK-HUMAN RESOURCES RECRUITER Primary Care Provider + Reason for Referral * Specialty Diagnoses / Procedures Referred By Jose olmedo Referred To Contact Vascular Surgery TIAGO CARSON [address] [place] [address] Referral ID Status Reason Start Date Expiration Date Visits Re quested Visits Authorized Encounter Details Date Type Department Care Team (Late st Contact Info) Description 09/21/2023 Orders Only [facility] Internal [facility] - Family Medicine [address] [place] [id number] Ref Prov, [place] [address] Social History Tobacco Use Types Packs/Day Years [...] Answer Date Recorded Total Score 0 03/07/2022 [facility] - Occupational Stress Questionnaire Answer Date [...] [address] [place] [address] Marisela Davila, TOOL CRIB CLERK-HUMAN RESOURCES RECRUITER [address] [place] [address] documented as of this encounter [...] Infection Onset Date Last Indicated Resolved Time SVP MARKETING Comment:LT CHEST WALL TISSUE(08/12/24) 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
--- OUTSIDE RECORDS SUMMARY | 2024-11-04 10:24 | XMS_ITS | Encounter Summary ---
Author Organization [facility] Address [address] [place] [address] Care Team Providers Care Service Order Clerk Name Role Phone Randy Lu MD Primary Care Provider Encounter Details Date Type Department Care Team (Late st Contact Info) Description 02/10/2024 Abstract [facility] [address] [place] [address] Evan Thompson [address] [place], [place] [address] Social History Tobacco Use Types Packs/Day Years [...] 11/24/2024 9:30 AM EDT Office Visit [facility] [address] [place] [phone] Prince Jay DO [address] [place] [address] 06/12/2025 10:00 AM EDT Office Visit [facility] [address] [place] [phone] Evan Thompson DO [address] [place] [address] documented as of this encounter Visit Diagnoses Not on filedocumented in this encounter Care Teams Service Order Clerk Relationship Specialty Start Date End Date Randy Lu MD PCP - General Family Medicine 04/02/23 documented as of this encounter
--- OUTSIDE RECORDS SUMMARY | 2024-11-04 10:24 | XMS_ITS | Encounter Summary ---
Author Organization [facility] Address [facility] [id number] [address] [place] [address] Care Team Providers Care Arcade Games Mechanic Name Role Phone Amy Collier STEEL DIE PRESS SET UP OPERATOR-CARDIAC CATHETERIZATION TECHNOLOGIST Primary Care Provider + Encounter Details Date Type Department Care Team (Late st Contact Info) Description 11/03/2023 Orders Only [facility] Internal Medicine - Family Medicine [address] [place] [address] External, Scanning Provider Social History Tobacco Use Types Packs/Day Years Used Date Smoking Tobacco: Never Smokeless Tobacco: Never Alcohol Use Standard Drinks/Week Comments Yes 0 (1 standard drink = 0.6 oz pur e alcohol) Socially [facility] Utilities Answer Date Recorded In the past 12 months has [employer] electric, gas, oil, or water company threatened [...] Total Score 0 03/07/2022 [facility] [place] [facility] - Occupational Stress [...] Reconstructive Surgery [address] [place] [address] Marisela Davila APRN-CARDIAC CATHETERIZATION TECHNOLOGIST [address] [place] [address] documented as of this encounter [...] Infection Onset Date Last Indicated Resolved Time CENTRIFUGAL EXTRACTOR OPERATOR Comment:LT CHEST WALL TISSUE(08/12/24) 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
--- OUTSIDE RECORDS SUMMARY | 2024-11-04 10:24 | XMS_ITS | Patient Health Record ---
Author Organization [facility] in [place] Address [address] [place] [address] Care Team Providers Care Portfolio Mgr Name Role Phone Mar GUYLynda Primary Care Provider UnavailAarti Lala Unavailable [phone] Results Component Value Reference Range Notes LAB TESTING (Not yet reviewe d by provider) Interpretation: Performing Lab: Notes/Report: 966219 Cancer Antigen (CA) 27.29 [facility] , Miscellaneous Test COMMENT . Test Ordered: 914672 CA 27.29 CA 27.29 23.5 U/mL Reference Range: 0.0-38.6 Siemens Centaur Immunochemiluminometric Methodology (ICMA) Values obtained with different assay methods or kits cannot be used interchangeably. Results cannot be interpreted as absolute evidence of the presence or absence of malignant disease. Performed at: - [facility] [id number] [employer] Operator: Vik Georges PhD, Phone: [phone] Performing Lab: see note - [facility] LB Platelet Count (Not yet revi ewed by provider) Interpretation: Performing Lab: Notes/Report: [facility] , Platelet Count 181 150-450 10 3/uL Performing Lab: see note ML - [facility] LB White Blood Count (Not yet r eviewed by provider) Interpretation: Performing Lab: Notes/Report: [facility] , White Blood Count 3.8 4.0-11.0 10 3/uL Performing Lab: see note ML - [facility] LB BILIRUBIN CONJUGATED (DIRECT ) (Not yet reviewed by provider) Interpretation: Performing Lab: Notes/Report: [facility] , Bilirubin Direct 0.3 0.0-0.2 mg/dL Performing Lab: see note - [facility] LB CBC AUTO DIFF (Not yet revie wed by provider) Interpretation: Performing Lab: Notes/Report: [facility] , White Blood Count 2.5 [...] 3/uL Performing Lab: see note - [facility] LB CRP (Not yet reviewed by pro vider) Interpretation: Performing Lab: Notes/Report: [facility] , C Reactive Protein <0.50 <=0.50 mg/dL Performing Lab: see note - [facility] LB PROF 14(COMP METB) (Not yet reviewed by provider) Interpretation: Performing Lab: Notes/Report: [facility] , Sodium 146 136-145 mmol/L Potassium 2.8 3.5-5.1 mmol/L RESULTS CALLED TO MALLIKA BAKERRN at 1015 Chloride 107 [...] 1.3 Performing Lab: see note ML - [facility] LB Erythrocyte Sedimentation Ra te (Not yet reviewed by provider) Interpretation: Performing Lab: Notes/Report: [facility] , Erythrocyte Sedimentation Rate <1 <=30 mm/hr Performing Lab: see note ML - [facility] LB TSH W/ REFLEX FT4 (Not yet r eviewed by provider) Interpretation: Performing Lab: Notes/Report: [facility] , TSH W/ REFLEX FT4 2.328 0.358-3.740 uIU/mL Performing Lab: see note ML - [facility] LB Packed Red Blood Cells (Not yet reviewed by provider) Interpretation: Performing Lab: Notes/Report: Packed Red Blood Cells [id number] ON RC TRANSFUSED 02/09/24 1619 Type and Screen (Not yet rev iewed by provider) Interpretation: Performing Lab: Notes/Report: [facility] , Blood Type O Negative Antibody Screen NEGATIVE CBC AUTO DIFF (Not yet revie wed by provider) Interpretation: Performing Lab: Notes/Report: [facility] , White Blood Count 3.1 [...] Performing Lab: see note ML - [facility] LB LIVER PROFILE (Not yet revie wed by provider) Interpretation: Performing Lab: Notes/Report: [facility] , Bilirubin Total 0.8 0.2-1.0 mg/dL Bilirubin Direct 0.2 0.0-0.2 mg/dL Aspartate Amino Transferase 84 15-37 U/L Alanine Aminotransferase 126 14-59 U/L Alkaline Phosphatase 91 46-116 U/L Total Protein 6.6 6.4-8.2 g/dL Albumin Level 3.6 3.4-5.0 g/dL Globulin 3.0 Albumin Globulin Ratio 1.2 Performing Lab: see note ML - [facility] LB BILIRUBIN CONJUGATED (DIRECT ) (Not yet reviewed by provider) Interpretation: Performing Lab: Notes/Report: [facility] , Bilirubin Direct 0.2 0.0-0.2 mg/dL Performing Lab: see note ML - [facility] LB CBC AUTO DIFF (Not yet revie wed by provider) Interpretation: Performing Lab: Notes/Report: [facility] , White Blood Count 4.1 [...] Performing Lab: see note ML - [facility] LB PROF 14(COMP METB) (Not yet reviewed by provider) Interpretation: Performing Lab: Notes/Report: [facility] , Sodium 146 136-145 mmol/L [...] Performing Lab: see note ML - [facility] LB TSH (Not yet reviewed by pro vider) Interpretation: Performing Lab: Notes/Report: [facility] , Thyroid Stimulating Hormone 3.729 0.358-3.740 uIU/mL Performing Lab: see note ML - [facility] LB CREATININE (Not yet reviewed by provider) Interpretation: Performing Lab: Notes/Report: [facility] , Creatinine 1.12 0.55-1.02 mg/dL Estimated GFR ( Joanna >60 >=60 mL/min/1.73m 2 Estimated GFR (Non- Le 51 >=60 mL/min/1.73m 2 Performing Lab: see note ML - [facility] LB White Blood Count (Not yet r eviewed by provider) Interpretation: Performing Lab: Notes/Report: [facility] , White Blood Count 2.6 4.0-11.0 10 3/uL Performing Lab: see note ML - [facility] LB Platelet Count (Not yet revi ewed by provider) Interpretation: Performing Lab: Notes/Report: [facility] , Platelet Count 168 150-450 10 3/uL Performing Lab: see note ML - [facility] LB LIVER PROFILE (Not yet revie wed by provider) Interpretation: Performing Lab: Notes/Report: [facility] , Bilirubin Total 1.0 0.2-1.0 mg/dL Bilirubin Direct 0.2 0.0-0.2 mg/dL Aspartate Amino Transferase 36 15-37 U/L Alanine Aminotransferase 50 14-59 U/L Alkaline Phosphatase 83 46-116 U/L Total Protein 6.6 6.4-8.2 g/dL Albumin Level 3.4 3.4-5.0 g/dL Globulin 3.2 Albumin Globulin Ratio 1.1 Performing Lab: see note ML - [facility] LB BILIRUBIN CONJUGATED (DIRECT ) (Not yet reviewed by provider) Interpretation: Performing Lab: Notes/Report: [facility] , Bilirubin Direct 0.2 0.0-0.2 mg/dL Performing Lab: see note ML - [facility] LB CREATININE (Not yet reviewed by provider) Interpretation: Performing Lab: Notes/Report: [facility] , Creatinine 1.09 0.55-1.02 mg/dL Estimated GFR ( Joanna >60 >=60 mL/min/1.73m 2 Estimated GFR (Non- Le 53 >=60 mL/min/1.73m 2 Performing Lab: see note ML - [facility] LB PROF 14(COMP METB) (Not yet reviewed by provider) Interpretation: Performing Lab: Notes/Report: [facility] , Sodium 145 136-145 mmol/L [...] Performing Lab: see note ML - [facility] LB PROF 14(COMP METB) (Not yet reviewed by provider) Interpretation: Performing Lab: Notes/Report: [facility] , Sodium 139 136-145 mmol/L [...] Ratio 1.0 Performing Lab: see note - [facility] LB CBC AUTO DIFF (Not yet revie wed by provider) Interpretation: Performing Lab: Notes/Report: [facility] , White Blood Count 6.0 [...] 10 3/uL Performing Lab: see note - [facility] LB MAGNESIUM (Not yet reviewed by provider) Interpretation: Performing Lab: Notes/Report: [facility] , Magnesium 1.5 1.8-2.4 mg/dL Performing Lab: see note ML - [facility] LB LAB TESTING (Not yet reviewe d by provider) Interpretation: Performing Lab: Notes/Report: [id number] Cancer Antigen (CA) 15-3 [facility] , Miscellaneous Test COMMENT . Test Ordered: [id number] Cancer Antigen (CA) 15-3 Cancer Antigen 15-3 29.1 [H ] U/mL Reference Range: 0.0-25.0 [facility] Electrochemiluminescence Immunoassay (ECLIA) Values obtained with different assay methods or kits cannot be used interchangeably. Results cannot be interpreted as absolute evidence of the presence or absence of malignant disease. Performed at: - [facility] [id number] [employer] Operator: Vik Georges PhD, Phone: [phone] Performing Lab: see note - [facility] LB CBC AUTO DIFF (Not yet revie wed by provider) Interpretation: Performing Lab: Notes/Report: [facility] , White Blood Count 7.3 [...] 10 3/uL Performing Lab: see note - [facility] LB BILIRUBIN CONJUGATED (DIRECT ) (Not yet reviewed by provider) Interpretation: Performing Lab: Notes/Report: [facility] , Bilirubin Direct 0.1 0.0-0.2 mg/dL Performing Lab: see note - [facility] LB PROF 14(COMP METB) (Not yet reviewed by provider) Interpretation: Performing Lab: Notes/Report: [facility] , Sodium 141 136-145 mmol/L [...] 1.1 Performing Lab: see note ML - [facility] LB CBC AUTO DIFF (Not yet revie wed by provider) Interpretation: Performing Lab: Notes/Report: [facility] , White Blood Count 5.3 [...] Performing Lab: see note ML - [facility] LB PROF 14(COMP METB) (Not yet reviewed by provider) Interpretation: Performing Lab: Notes/Report: [facility] , Sodium 141 136-145 mmol/L Potassium 3.4 [...] Performing Lab: see note ML - [facility] LB TSH (Not yet reviewed by pro vider) Interpretation: Performing Lab: Notes/Report: [facility] , Thyroid Stimulating Hormone 0.288 0.358-3.740 uIU/mL Performing Lab: see note ML - [facility] LB CBC AUTO DIFF (Not yet revie wed by provider) Interpretation: Performing Lab: Notes/Report: [facility] , White Blood Count 5.6 [...] Performing Lab: see note ML - [facility] LB Surgical Pathology ([facility]) (Not yet reviewed by provider) Interpretation: Performing Lab:[facility] [address], [place]. [address] PH:[phone] Notes/Report: The previously reported component Microscopic Description is no longer being reported. SURGICAL PATHOLOGY SEE RESULTS BELOW SPECIMEN SOURCE Tissue Liver LAB AP CASE REPORT: Surgical Pathology Report Case: [id number] Authorizing Provider: Guillaume Curiel MD Collected: 07/11/2024 1449 Ordering Location: [facility] Received: 07/11/2024 1504 a Division of [facility] - Interventional Radiology Pathologist: Bautista Stevens MD [...] positive for ER, and negative for CK19, GA and CDX2 with adequate controls, supporting the above diagnosis. LAB AP ADDENDUM 1: ADDENDUM from [facility] (08/08/2024) Breast biomarkers (ER, PgR, and HER2) performed at the outside institution are available for review at the [facility] and demonstrate the tumor cells to be positive for ER (30% nuclear staining of tumor cells with moderate staining intensity), negative for GA (<1% nuclear staining of tumor cells), and negative for HER2 (score of 1+). See complete addended report (scanned on 08/09/2024). Addendum electronically signed by Bautista Stevens MD on 08/09/2024 at 1053 EDT LAB AP GROSS DESCRIPTION: Received in formalin labeled ROBERT, right lobe liver lesion are four tannish-orange delicate needle core segments of soft tissue, from 1.1-1.6 cm in length. The specimens are submitted entirely in a single cassette. (1, ns, [id number], m2) [facility] AP SYNOPTIC CHECKLIST: Breast Biomarker Reporting [...] performed Addendum to CC Consult, Liver mass, [facility], 08/08/2024 PERFORMED AT [facility] [address],[place] [address] IRON AND TIBC (Not yet revie wed by provider) Interpretation: Performing Lab: Notes/Report: [facility] , Iron 71.0 50.0-170.0 ug/dL Total Iron Binding Capacity 306.0 250.0-450.0 ug/dL Percent Iron Saturation 23.2 Performing Lab: see note ML - [facility] LB CBC AUTO DIFF (Not yet revie wed by provider) Interpretation: Performing Lab: Notes/Report: [facility] , White Blood Count 7.7 4.0-11.0 10 3/uL Red Blood Count 2.32 4.20-5.40 10 6/uL Hemoglobin 8.7 12.0-16.0 g/dL Hematocrit 24.5 36.0-48.0 % Mean Corpuscular Volume 105.6 81.0-99.0 fL Mean Corpuscular Hemoglobin 37.5 26.7-34.0 pg Mean Corpuscular HGB Conc 35.5 29.9-35.2 g/dL Red Cell Distribution Width 22.5 11.0-15.0 % Platelet Count 259 150-450 10 3/uL Mean Platelet Volume 9.3 9.5-13.5 fL Performing Lab: see note ML - [facility] LB MAGNESIUM (Not yet reviewed by provider) Interpretation: Performing Lab: Notes/Report: [facility] , Magnesium 1.9 1.8-2.4 mg/dL Performing Lab: see note - [facility] LB PROF 14(COMP METB) (Not yet reviewed by provider) Interpretation: Performing Lab: Notes/Report: [facility] , Sodium 141 136-145 mmol/L Potassium 4.0 3.5-5.1 mmol/L Chloride 106 98-107 mmol/L Carbon Dioxide 25.5 21.0-32.0 mmol/L Anion Gap 13.5 Glucose 85 74-106 mg/dL Blood Urea Nitrogen 23.0 7.0-18.0 mg/dL Creatinine 1.16 0.55-1.02 mg/dL Estimated GFR ( Joanna 59 >=60 mL/min/1.73m 2 Estimated GFR (Non- Le 49 >=60 mL/min/1.73m 2 BUN Creatinine Ratio 19.8 Calcium 9.1 8.5-10.1 mg/dL Bilirubin Total 1.5 0.2-1.0 mg/dL Aspartate Amino Transferase 28 15-37 U/L Alanine Aminotransferase 44 14-59 U/L Alkaline Phosphatase 60 46-116 U/L Total Protein 6.3 6.4-8.2 g/dL Albumin Level 3.6 3.4-5.0 g/dL Globulin 2.7 Albumin Globulin Ratio 1.3 Performing Lab: see note ML - [facility] LB Manual Differential (Not yet reviewed by provider) Interpretation: Performing Lab: Notes/Report: [facility] , Segmented Neutrophils % Manual 60.0 43.0-75.0 Lymphocytes Percent Manual 33.0 20.5-60.0 % Monocytes Percent Manual 4.0 1.7-12.0 % Eosinophils Percent Manual 0.0 0.9-7.0 % Basophils Percent Manual 0.0 0.2-2.0 % Metamyelocytes % 1.0 Myelocytes % Manual 2.0 Segmented Neut Absolute Manual 4.62 1.4-6.5 10 3/uL Lymphocytes Absolute Manual 2.54 1.20-3.80 10 3/uL Monocytes Absolute Manual 0.30 0.30-0.80 10 3/uL Eosinophils Absolute Manual 0.00 0.00-0.70 10 3/uL Basophils Abs Manual 0.00 0.00-0.10 1 0 3/uL Metamyelocytes Absolute Manual 0.07 Myelocytes Absolute Manual 0.15 Nucleated Red Blood Cells 2 Polychromasia 1+ Anisocytosis 2+ Macrocytosis 2+ Performing Lab: see note - [facility] LB CA 27.29 (Not yet reviewed b y provider) Interpretation: Performing Lab: Notes/Report: [facility] , CA 27.29 69.4 0.0-38.6 U/mL Siemens CogniFitaur Immunochemiluminometric Methodology (ICMA) Values obtained with different assay methods or kits cannot be used interchangeably. Results cannot be interpreted as absolute evidence of the presence or absence of malignant disease. Performed at: [address] [id number] [employer] Operator: Vik Georges PhD, Phone: [phone] Performing Lab: see note - [facility] CA 15-3 (Not yet reviewed by provider) Interpretation: Performing Lab: Notes/Report: [facility] , CA 15-3 56.1 0.0-25.0 U/mL [facility] Electrochemiluminescence Immunoassay (ECLIA) Values obtained with different assay methods or kits cannot be used interchangeably. Results cannot be interpreted as absolute evidence of the presence or absence of malignant disease. Performed at: [address] [id number] [employer] Operator: Vik Georges PhD, Phone: [phone] Performing Lab: see note - [facility] LB PET skull to mid thigh (Not yet reviewed by provider) Interpretation: Performing Lab: Notes/Report: Source Facility: [place] [address] [place] [address] PET Report Signed with Jh Patient: YASMIN JONES MR#: [id number] : 1970 Acct:[id number] Age/Sex: 54 / F ADM Date: 10/10/24 Loc: PETCT Attending Dr: Aarti Hope M.D. Ordering Physician: Aarti Hope M.D. Date of Service: 10/10/24 Procedure(s): PET skull to mid thigh Accession Number(s): [id number] cc: Aarti Hope M.D.; LYNDA JARQUIN ADDENDUM The [address] [address] This is an addendum Comparison is made to a prior PET/CT from [facility] [place] 06/03/20[place]. There is PET/CT evidence of interval progression of disease within the liver when compared to the prior study with new lesions present within both lobes. New FDG avid right axillary and intramammary lymph nodes suspicious for progression of disease. The uterine activity appears more conspicuous on today's study. Correlation with ultrasound is suggested. There is subjectively decreased activity involving the left mastectomy bed presumed postsurgical in nature. Attention on follow-up is suggested. Impression dictated by: Alok Nicolas Jr., D.O. 10/12/2024 4:08 PM Dictation Location: [place] [address] Patient Electronically authenticated by: [id number] Y Date: 10/12/2024 16:08 Name: YASMIN JONES MRN: [id number] date: 1970 Sex: F Assigned Patient Location: PETCT Current Patient Location: INF Accession/Order Number: [id number] Exam Date: 10/12/2024 16:03 Report Date: 10/12/2024 16:08 At the request of: AARTI HOPE MD Procedure: PET skull to mid thigh The [address] [address] Patient Name: YASMIN JONES MRN: [id number] date: 1970 Sex: F Assigned Patient Location: PETCT Current Patient Location: INF Accession/Order Number: [id number] Exam Date: 10/11/2024 09:03 Report Date: 10/11/2024 09:19 At the request of: AARTI HOPE MD Procedure: PET skull to mid thigh PET/CT FUSION IMAGING CLINICAL INFORMATION: Breast cancer COMPARISON : Prior PET/CT 10/26/2023 TECHNIQUE: Noncontrasted CT scan from the base of the skull to the upper thigh followed by PET imaging. Multiplanar PET/CT fusion images. Blood Glucose : 89 mg/dL The F-18 FDG 10.69mCi. FINDINGS: Neck: No focal abnormal activity. Chest:No focal abnormal activity is seen involving the mediastinum or hilar regions. No abnormal activity is seen involving the lung parenchyma. Presumed postsurgical activity is seen involving the left mastectomy bed. Right breast demonstrates presumed postintervention changes without abnormal activity. Postsurgical changes are seen involving the right axilla with an FDG avid lymph node present, SUV max of 6.2. FDG avid right intramammary lymph node, SUV max of 4.8. No abnormal activity is seen involving the left axilla. Abdomen/pelvis: Multiple FDG avid lesions are seen within the liver, SUV max of 9.9. No abnormal activity is seen involving the adrenal glands. Abnormal activity is seen within the expected region of the uterus, SUV max 8.8. Soft tissue/bones: No abnormal activity is identified. CT findings: No pneumothorax. Evidence old granulomatous disease. Trace bilateral pleural effusions which are not FDG avid. No free air or free fluid is seen. Addendum Dictated By: Alok Nicolas M.D. Addendum Signed By: 10/12/24 1 610 Addendum Cosigned By: DD/ TD/TT: / ADDENDUM PET/PET skull to mid thigh IMPRESSION: 1. PET/CT evidence of progression disease when compared to the prior PET/CT study from 10/26/2023. 2. New FDG avid liver lesions consistent with metastatic disease. 3. New FDG avid right axillary and intramammary lymph nodes suspicious for metastatic disease. 4. Left Mastectomy changes since the prior PET/CT with residual presumed postsurgical activity. 5. New abnormal activity is seen in the expected location of the uterus. Underlying secondary malignancy cannot BE excluded. Further evaluation with ultrasound is recommended. 6. Trace bilateral pleural effusions. Impression dictated by: Alok Nicolas Jr., D.O. 10/11/2024 9:19 AM Dictation Location: [place] [address] Electronically authenticated by: [id number] Y Date: 10/11/2024 09:19 Addendum Dictated By: Alok Nicolas M.D. Addendum Signed By: 10/12/24 1 610 Addendum Cosigned By: DD/ TD/TT: / [address] [address] Patient Name: YASMIN JONES MRN: [id number] date: 1970 Sex: F Assigned Patient Location: PETCT Current Patient Location: [facility] Accession/Order Number: [id number] Exam Date: 10/11/2024 09:03 Report Date: 10/11/2024 09:19 At the request of: AARTI HOPE MD Procedure: PET skull to mid thigh PET/CT FUSION IMAGING CLINICAL INFORMATION: Breast cancer COMPARISON : Prior PET/CT 10/26/2023 TECHNIQUE: Noncontrasted CT scan from the base of the skull to the upper thigh followed by PET imaging. Multiplanar PET/CT fusion images. Blood Glucose : 89 mg/dL The F-18 FDG 10.69mCi. FINDINGS: Neck: No focal abnormal activity. Chest:No focal abnormal activity is seen involving the mediastinum or hilar regions. No abnormal activity is seen involving the lung parenchyma. Presumed postsurgical activity is seen involving the left mastectomy bed. Right breast demonstrates presumed postintervention changes without abnormal activity. Postsurgical changes are seen involving the right axilla with an FDG avid lymph node present, SUV max of 6.2. FDG avid right intramammary lymph node, SUV max of 4.8. No abnormal activity is seen involving the left axilla. Abdomen/pelvis: Multiple FDG avid lesions are seen within the liver, SUV max of 9.9. No abnormal activity is seen involving the adrenal glands. Abnormal activity is seen within the expected region of the uterus, SUV max 8.8. Soft tissue/bones: No abnormal activity is identified. CT findings: No pneumothorax. Evidence old granulomatous disease. Trace bilateral pleural effusions which are not FDG avid. No free air or free fluid is seen. PET/PET skull to mid thigh IMPRESSION: 1. PET/CT evidence of progression disease when compared to the prior PET/CT study from 10/26/2023. 2. New FDG avid liver lesions consistent with metastatic disease. 3. New FDG avid right axillary and intramammary lymph nodes suspicious for metastatic disease. 4. Left Mastectomy changes since the prior PET/CT with residual presumed postsurgical activity. 5. New abnormal activity is seen in the expected location of the uterus. Underlying secondary malignancy cannot BE excluded. Further evaluation with ultrasound is recommended. 6. Trace bilateral pleural effusions. Impression dictated by: Alok Nicolas Jr., D.O. 10/11/2024 9:19 AM Dictation Location: [place] [address] Electronically authenticated by: [id number] Y Date: 10/11/2024 09:19 Dictated By: Alok Nicolas M.D. Signed By: 10/11/24921 DD/ 8 TD/TT: [employer]: [place] [address] PET Report Signed with Addenda Patient: YASMIN JONES MR#: [id number] : 1970 Acct:[id number] Age/Sex: 54 / F ADM Date: 10/10/24 Loc: PETCT Attending Dr: Arturo Hope M.D. Ordering Physician: Aarti Hope M.D. Date of Service: 10/10/24 Procedure(s): PET skull to mid thigh Accession Number(s): [id number] cc: Aarti Hope M.D.; LYNDA JARQUIN ADDENDUM The [address] [id number] This is an addendum Comparison is made t o a prior PET/[place] from [facility] [place] 06/03/2024. There is PET/CT evidence of interval progression of disease within the liver when compared to the prior study with new lesions present within both lobes. New FDG avid right axillary and intramammary lymph nodes suspicious for progression of disease. The uterine activity appears more conspicuous on today's study. Correlation with ultrasound is suggested. There is subjectivel y decreased activity involving the left mastectomy bed presumed postsurgica l in nature. Attention on follow-up is suggested. Impression dictated by: Alok Nicolas Jr., D.O. 10/12/2024 4:08 PM Dictation Location: [place] [address] Patient Electronically authenticated by: [id number] Y Date: 10/12/2024 16:08 Name: YASMIN JONES MRN: [id number] date: 1970 Sex: F Assigned Patient Location: PETCT Current Patient Location: INF Accession/Order Number: [id number] Exam Date: 10/12/2024 16:03 Report Date: 10/12/2024 16:08 At the request of: AARTI HOPE MD Procedure: PET skull to mid thigh [place] [address] Patient Name: YASMIN JONES MRN: [id number] date: 1970 Sex: F Assigned Patient Location: PETCT Current Patient Location: INF Accession/Order Number: [id number] Exam Date: 10/11/2024 09:03 Report Date: 10/11/2024 09:19 At the request of: AARTI HOPE MD Procedure: PET skull to mid thigh PET/CT FUSION IMAGING CLINICAL INFORMATION : Breast cancer COMPARISON : Prior PET/CT 10/26/2023 TECHNIQUE: Noncontrasted CT scan from the base of the skull to the upper thigh followed by PET imaging. Multiplanar PET/CT fusion images. Blood Glucose : 89 mg/dL The F-18 FDG 10.69mCi. FINDINGS: Neck: No focal abnormal activity. Chest:No focal abnormal activity is seen involving the mediastinum or hilar regions. No abnormal activity is seen involving the lung parenchyma. Presumed postsurgica l activity is seen involving the left mastectomy bed. Right breast demonstrates presumed postintervention changes without abnormal activity. Postsurgic al changes are seen involving the right axilla with an FDG avid lymph node present, SUV max of 6.2. FDG avid right intramammary lymph node, SUV max of 4.8. No abnormal activity is seen involving the left axilla. Abdomen/pelvis: Multiple FDG avid lesions are seen within the liver, SUV max of 9.9. No abnormal activity is seen involving the adrenal glands. Abnormal activity is seen within the expected region of the uterus, SUV max 8.8. Soft tissue/bones: N o abnormal activity is identified. CT findings: No pneumothorax. Evidence old granulomatous disease. Trace bilateral pleural effusions which are not FDG avid. No free air or free fluid is seen. Addendum Dictated By : Alok Nicolas M.D. Addendum Signed By: 10/12/24 1 610 Addendum Cosigned By: DD/ TD/TT: / ADDENDUM PET/PET skull to mid thigh IMPRESSION: 1. PET/CT evidence o f progression disease when compared to the prior PET/CT study from 10/26/2023. 2. New FDG avid live r lesions consistent with metastatic disease. 3. New FDG avid righ t axillary and intramammary lymph nodes suspicious for metastatic disease. 4. Left Mastectomy changes since the prior PET/CT with residual presumed postsurgical activity. 5. New abnormal activity is seen in the expected location of the uterus. Underlying secondary malignancy cannot BE excluded. Further evaluation with ultrasound is recommended. 6. Trace bilateral pleural effusions. Impression dictated by: Alok Nicolas Jr., D.OStarr 10/11/2024 9:19 AM Dictation Location: [place] [address] Electronically authenticated by: [id number] Y Date: 10/11/2024 09:19 Addendum Dictated By : Alok Nicolas M.D. Addendum Signed By: 10/12/24 1 610 Addendum Cosigned By: DD/ TD/TT: / [place] [id number] Patient Name: YASMIN JONES MRN: [id number] date: 1970 Sex: F Assigned Patient Location: PETCT Current Patient Location: [facility] Accession/Order Number: [id number] Exam Date: 10/11/2024 09:03 Report Date: 10/11/2024 09:19 At the request of: AARTI HOPE MD Procedure: PET skull to mid thigh PET/CT FUSION IMAGING CLINICAL INFORMATION : Breast cancer COMPARISON : Prior PET/CT 10/26/2023 TECHNIQUE: Noncontrasted CT scan from the base of the skull to the upper thigh followed by PET imaging. Multiplanar PET/CT fusion images. Blood Glucose : 89 mg/dL The F-18 FDG 10.69mCi. FINDINGS: Neck: No focal abnormal activity. Chest:No focal abnormal activity is seen involving the mediastinum or hilar regions. No abnormal activity is seen involving the lung parenchyma. Presumed postsurgica l activity is seen involving the left mastectomy bed. Right breast demonstrates presumed postintervention changes without abnormal activity. Postsurgic al changes are seen involving the right axilla with an FDG avid lymph node present, SUV max of 6.2. FDG avid right intramammary lymph node, SUV max of 4.8. No abnormal activity is seen involving the left axilla. Abdomen/pelvis: Multiple FDG avid lesions are seen within the liver, SUV max of 9.9. No abnormal activity is seen involving the adrenal glands. Abnormal activity is seen within the expected region of the uterus, SUV max 8.8. Soft tissue/bones: N o abnormal activity is identified. CT findings: No pneumothorax. Evidence old granulomatous disease. Trace bilateral pleural effusions which are not FDG avid. No free air or free fluid is seen. PET/PET skull to mid thigh IMPRESSION: 1. PET/CT evidence o f progression disease when compared to the prior PET/CT study from 10/26/2023. 2. New FDG avid live r lesions consistent with metastatic disease. 3. New FDG avid righ t axillary and intramammary lymph nodes suspicious for metastatic disease. 4. Left Mastectomy changes since the prior PET/CT with residual presumed postsurgical activity. 5. New abnormal activity is seen in the expected location of the uterus. Underlying secondary malignancy cannot BE excluded. Further evaluation with ultrasound is recommended. 6. Trace bilateral pleural effusions. Impression dictated by: Alok Nicolas Jr., DStarrOStarr 10/11/2024 9:19 AM Dictation Location: [place] [address] Electronically authenticated by: [id number] Y Date: 10/11/2024 09:19 Dictated By: Alok Nicolas M.D. Signed By: 10/11/2422 DD/ 8 TD/TT: [employer] Foreman: MISTY echo doppler complete (No t yet reviewed by provider) Interpretation: Performing Lab: Notes/Report: Source Facility: [place] [address] Cardiology Report Signed Patient: YASMIN JONES MR#: [id number] : 1970 Acct:[id number] Age/Sex: 54 / F ADM Date: 10/19/24 Loc: CARD Attending Dr: Aarti Hope M.D. Ordering Physician: Aarti Hope M.D. Date of Service: 10/19/24 Procedure(s): CA echo doppler complete Accession Number(s): [id number] cc: Aarti Hope M.D.; LYNDA JARQUIN Patient Name: YASMIN JONES MR#: [id number] : 1970 Exam Date: 10/19/2024 Ordering Doctor: AARTI HOPE ECHOCARDIOGRAM REPORT PROCEDURE: CA ECHO DOPPLER COMPLETE INDICATIONS: Malignant neoplasm of right breast, skilled nursing drug therapy COMPARISON: None. DESCRIPTION: COMPLETE ECHOCARDIOGRAM Real-time transthoracic echocardiography with 2D, M-mode, spectral and color flow Doppler performed. QUALITY: Technical quality was good. LEFT VENTRICLE: Normal chamber size. Thickened septal wall. Mild to moderate concentric hypertrophy. Global left ventricular systolic function is normal. Global longitudinal strain is -13.8% which is reduced. LV EF: Calculated left ventricular ejection fraction is 55%. DIASTOLIC: Normal diastolic function. ATRIAL SEPTUM: LEFT ATRIUM: Normal chamber size. RIGHT ATRIUM: Mild dilatation. RIGHT VENTRICLE: Normal chamber size. Normal right ventricular systolic function. TRICUSPID VALVE: Normal mobility and thickness. No stenosis with mild regurgitation. No evidence of pulmonary hypertension. RVSP 18 mmHg. MITRAL VALVE: Mildly thickened with normal mobility. No evidence of mitral valve stenosis. There is no mitral annular calcification. Trivial mitral regurgitation. AORTIC VALVE: Normal trileaflet appearance. No visible sclerosis. Normal leaflet mobility. No evidence of aortic valve stenosis. Trivial aortic regurgitation. AORTIC ROOT: Normal diameter and appearance, measuring 3.6 cm. The ascending aorta is normal in size and measures 3.2 cm. PULMONIC VALVE: Normal thickness and mobility. No stenosis. Trivial regurgitation. PERICARDIUM: Small anterior pericardial effusion [measuring 0.8 cm]. No evidence of tamponade physiology. IVC: Collapses with inspiration. Normal size. PLEURA: CONCLUSION: 1. Mild to moderate concentric left ventricular hypertrophy with normal systolic function. LVEF is calculated at 55%. Global longitudinal strain is reduced at -13.8%. 2. Normal right ventricular size and systolic function. 3. Normal diastolic function. 4. Normal right-sided pressures. 5. Small anterior pericardial effusion without any evidence of tamponade physiology by echocardiographic criteria. Adult Echocardiography Procedure Report Left Ventricle LVEDD (3.7 - 5.6 cm): 4.26 cm LVESD (2.2 - 4.0 cm): 3.19 cm LVIVS thickness (0.6 - 1.2 cm): 1.61 cm LVPW thickness (0.5 - 1.0 cm): 1.20 cm e': 0.07 m/s E - e': 6.18 LVOT Max Gradient: 3.07 mm[Hg] LVOT Area (cm2): 0.88 m/s Peak Velocity (LVOT): 0.88 m/s Mean Velocity (LVOT): 0.62 m/s LVOT Diameter 2.03 cm Left Ventricular Ejection Fraction: 55.34 % Left Atrium LA Volume Index (2D A2C): 18.97 ml/m2 Left Atrium Systolic Dimension: 3.76 cm Mitral Valve MV E to A Ratio: 1.26 Mitral Valve A-Wave Peak Velocity: 0.32 m/s Mitral Valve E-Wave Peak Velocity: 0.41 m/s Right Ventricle RV Internal Diastolic Dimension: 3.19 cm Aorta AO Root Diam: 3.59 cm Ascending Ao Diam: 3.23 cm Aortic Valve AoV Area (Peak Stefan): 2.89 cm2, 2.89 cm2 AoV Area (VTI): 2.94 cm2, 2.94 cm2 Peak Velocity(Antegrade Flow): 0.98 m/s Peak Gradient(Antegrade Flow): 3.87 mm[Hg] Mean Velocity(Antegrade Flow): 0.69 m/s Mean Gradient(Antegrade Flow): 2.18 mm[Hg] Velocity Time Integral: 17.58 cm Tricuspid Valve Peak Velocity (Regurgitant Flow): 1.93 m/s, 1.74 m/s Pulmonic Valve Peak Velocity: 0.67 m/s Peak Gradient: 1.78 mm[Hg] Right Atrium Right Atrium Systolic Pressure: 30.67 ml, 30.67 ml Dictated by: Vivian Bazan M.D. on 10/19/2024 at 17:50 Approved by: Vivian Bazan M.D. on 10/19/2024 at 17:56 Dictated By: VIVIAN BAZAN Signed By: 10/19/241757 DD/ 55 TD/TT: [employer] Install[employer] Foreman: [place] [address] Cardiology Report Signed Patient: YASMIN JONES MR#: [id number] : 1970 Acct:[id number] Age/Sex: 54 / F ADM Date: 10/19/24 Loc: CARD Attending Dr: Arturo Hope M.D. Ordering Physician: Aarti Hope M.D. Date of Service: 10/19/24 Procedure(s): CA ech o doppler complete Accession Number(s): [id number] cc: Aarti Hope M.D.; LYNDA JARQUIN Patient Name: YASMIN JONES MR#: [id number] : 1970 Exam Date: 10/19/2024 Ordering Doctor: AARTI HOPE ECHOCARDIOGRAM REPORT PROCEDURE: CA ECHO DOPPLER COMPLETE INDICATIONS: Maligna nt neoplasm of right breast, skilled nursing drug therapy COMPARISON: None. DESCRIPTION: COMPLET E ECHOCARDIOGRAM Real-time transthoracic echocardiography wit h 2D, M-mode, spectral and color flow Doppler performed. QUALITY: Technical quality was good. LEFT VENTRICLE: Norm al chamber size. Thickened septal wall. Mild to moderate concentric hypertrophy. Global left ventricular systolic function is normal. Global longitudinal strain is -13.8% which is reduced. LV EF: Calculated le ft ventricular ejection fraction is 55%. DIASTOLIC: Normal diastolic function. ATRIAL SEPTUM: LEFT ATRIUM: Normal chamber size. RIGHT ATRIUM: Mild dilatation. RIGHT VENTRICLE: Normal chamber size. Normal right ventricular systolic function. TRICUSPID VALVE: Normal mobility and thickness. No stenosis with mild regurgitation. No evidence of pulmonary hypertension. RVSP 18 mmHg. MITRAL VALVE: Mildly thickened with normal mobility. No evidence of mitral valve stenosi s. There is no mitral annular calcification. Trivial mitral regurgitation. AORTIC VALVE: Normal trileaflet appearance. No visible sclerosis. Normal leaflet mobility. No evidence of aortic valve stenosis. Trivial aortic regurgitation. AORTIC ROOT: Normal diameter and appearance, measuring 3.6 cm. The ascending aorta is normal in size and measures 3.2 cm. PULMONIC VALVE: Norm al thickness and mobility. No stenosis. Trivial regurgitation. PERICARDIUM: Small anterior pericardial effusion [measuring 0.8 cm]. No evidence of tamponad e physiology. IVC: Collapses with inspiration. Normal size. PLEURA: CONCLUSION: 1. Mild to moderate concentric left ventricular hypertrophy with normal systolic function. LVEF is calculated at 55%. Global longitudinal strain is reduced at -13.8%. 2. Normal right ventricular size and systolic function. 3. Normal diastolic function. 4. Normal right-side d pressures. 5. Small anterior pericardial effusion without any evidence of tamponade physiology by echocardiographic criteria. Adult Echocardiograp hy Procedure Report Left Ventricle LVEDD (3.7 - 5.6 cm) : 4.26 cm LVESD (2.2 - 4.0 cm) : 3.19 cm LVIVS thickness (0.6 - 1.2 cm): 1.61 cm LVPW thickness (0.5 - 1.0 cm): 1.20 cm e': 0.07 m/s E - e': 6.18 LVOT Max Gradient: 3.07 mm[Hg] LVOT Area (cm2): 0.8 8 m/s Peak Velocity (LVOT) : 0.88 m/s Mean Velocity (LVOT) : 0.62 m/s LVOT Diameter 2.03 cm Left Ventricular Ejection Fraction: 55.34 % Left Atrium LA Volume Index (2D A2C): 18.97 ml/m2 Left Atrium Systolic Dimension: 3.76 cm Mitral Valve MV E to A Ratio: 1.26 Mitral Valve A-Wave Peak Velocity: 0.32 m/s Mitral Valve E-Wave Peak Velocity: 0.41 m/s Right Ventricle RV Internal Diastoli c Dimension: 3.19 cm Aorta AO Root Diam: 3.59 cm Ascending Ao Diam: 3.23 cm Aortic Valve AoV Area (Peak Stefan): 2.89 cm2, 2.89 cm2 AoV Area (VTI): 2.94 cm2, 2.94 cm2 Peak Velocity(Antegrade Flow): 0.98 m/s Peak Gradient(Antegrade Flow): 3.87 mm[Hg] Mean Velocity(Antegrade Flow): 0.69 m/s Mean Gradient(Antegrade Flow): 2.18 mm[Hg] Velocity Time Integral: 17.58 cm Tricuspid Valve Peak Velocity (Regurgitant Flow): 1.93 m/s, 1.74 m/s Pulmonic Valve Peak Velocity: 0.67 m/s Peak Gradient: 1.78 mm[Hg] Right Atrium Right Atrium Systoli c Pressure: 30.67 ml, 30.67 ml Dictated by: Vivian Bazan M.D. on 10/19/2024 at 17:50 Approved by: Vivian Bazan M.D. on 10/19/2024 at 17:56 Dictated By: VIVIAN BAZAN Signed By: 10/19/241757 DD/ 55 TD/TT: Solar Installation Foreman: CBC AUTO DIFF (Not yet revie wed by provider) Interpretation: Performing Lab: Notes/Report: [facility] , White Blood Count 4.2 4.0-11.0 10 3/uL Red Blood Count 2.29 4.20-5.40 10 6/uL Hemoglobin 9.0 12.0-16.0 g/dL Hematocrit 25.1 36.0-48.0 % Mean Corpuscular Volume 109.6 81.0-99.0 fL MACROCYTOSIS 1+ Mean Corpuscular Hemoglobin 39.3 26.7-34.0 pg Mean Corpuscular HGB Conc 35.9 29.9-35.2 g/dL Red Cell Distribution Width 22.4 11.0-15.0 % ANISOCYTOSIS 2+ Platelet Count 210 150-450 10 3/uL Mean Platelet Volume 9.4 9.5-13.5 fL Neutrophils Percent Auto 67.1 43.0-75.0 % Lymphocytes Percent Auto 20.9 20.5-60.0 % Monocytes Percent Auto 6.7 1.7-12.0 % Eosinophils Percent Auto 3.8 0.9-7.0 % Basophils Percent Auto 1.0 0.2-2.0 % Immature Granulocytes Pct Auto 0.5 0.0-0.5 % Neutrophils Absolute Auto 2.8 1.4-6.5 10 3/uL Lymphocytes Absolute Auto 0.9 1.2-3.8 10 3/uL Monocytes Absolute Auto 0.3 0.3-0.8 10 3/uL Eosinophils Absolute Auto 0.2 0.0-0.7 10 3/uL Basophils Absolute Auto 0.0 0.0-0.1 10 3/uL Immature Granulocytes Abs Auto 0.02 0.00-0.03 10 3/uL Performing Lab: see note ML - [facility] LB MAGNESIUM (Not yet reviewed by provider) Interpretation: Performing Lab: Notes/Report: [facility] , Magnesium 1.8 1.8-2.4 mg/dL Performing Lab: see note ML - [facility] LB PROF 14(COMP METB) (Not yet reviewed by provider) Interpretation: Performing Lab: Notes/Report: [facility] , Sodium 139 136-145 mmol/L Potassium 4.1 3.5-5.1 mmol/L Chloride 106 98-107 mmol/L Carbon Dioxide 23.6 21.0-32.0 mmol/L Anion Gap 13.5 Glucose 84 74-106 mg/dL Blood Urea Nitrogen 13.0 7.0-18.0 mg/dL Creatinine 1.18 0.55-1.02 mg/dL Estimated GFR ( Joanna 58 >=60 mL/min/1.73m 2 Estimated GFR (Non- Le 48 >=60 mL/min/1.73m 2 BUN Creatinine Ratio 11.0 Calcium 8.8 8.5-10.1 mg/dL Bilirubin Total 2.1 0.2-1.0 mg/dL Aspartate Amino Transferase 19 15-37 U/L Alanine Aminotransferase 32 14-59 U/L Alkaline Phosphatase 69 46-116 U/L Total Protein 6.7 6.4-8.2 g/dL Albumin Level 3.6 3.4-5.0 g/dL Globulin 3.1 Albumin Globulin Ratio 1.2 Performing Lab: see note ML - [facility] LB CBC AUTO DIFF (Not yet revie wed by provider) Interpretation: Performing Lab: Notes/Report: [facility] , White Blood Count 4.3 4.0-11.0 10 3/uL Red Blood Count 2.04 4.20-5.40 10 6/uL Hemoglobin 8.3 12.0-16.0 g/dL Hematocrit 22.3 36.0-48.0 % RESULTS CALLED TO NAYELI SILVER, RN Mean Corpuscular Volume 109.3 81.0-99.0 fL Mean Corpuscular Hemoglobin 40.7 26.7-34.0 pg Mean Corpuscular HGB Conc 37.2 29.9-35.2 g/dL Red Cell Distribution Width 20.9 11.0-15.0 % Platelet Count 176 150-450 10 3/uL Mean Platelet Volume 9.6 9.5-13.5 fL Neutrophils Percent Auto 69.0 43.0-75.0 % Lymphocytes Percent Auto 21.8 20.5-60.0 % Monocytes Percent Auto 3.3 1.7-12.0 % Eosinophils Percent Auto 4.7 0.9-7.0 % Basophils Percent Auto 0.5 0.2-2.0 % Immature Granulocytes Pct Auto 0.7 0.0-0.5 % Neutrophils Absolute Auto 2.9 1.4-6.5 10 3/uL Lymphocytes Absolute Auto 0.9 1.2-3.8 10 3/uL Monocytes Absolute Auto 0.1 0.3-0.8 10 3/uL Eosinophils Absolute Auto 0.2 0.0-0.7 10 3/uL Basophils Absolute Auto 0.0 0.0-0.1 10 3/uL Immature Granulocytes Abs Auto 0.03 0.00-0.03 10 3/uL Performing Lab: see note ML - [facility] LB PROF 14(COMP METB) (Not yet reviewed by provider) Interpretation: Performing Lab: Notes/Report: [facility] , Sodium 139 136-145 mmol/L Potassium 3.6 3.5-5.1 mmol/L Chloride 105 98-107 mmol/L Carbon Dioxide 22.7 21.0-32.0 mmol/L Anion Gap 14.9 Glucose 93 74-106 mg/dL Blood Urea Nitrogen 12.0 7.0-18.0 mg/dL Creatinine 1.55 0.55-1.02 mg/dL Estimated GFR ( Joanna 42 >=60 mL/min/1.73m 2 Estimated GFR (Non- Le 35 >=60 mL/min/1.73m 2 BUN Creatinine Ratio 7.7 Calcium 8.9 8.5-10.1 mg/dL Bilirubin Total 2.0 0.2-1.0 mg/dL Aspartate Amino Transferase 20 15-37 U/L Alanine Aminotransferase 27 14-59 U/L Alkaline Phosphatase 69 46-116 U/L Total Protein 6.5 6.4-8.2 g/dL Albumin Level 3.6 3.4-5.0 g/dL Globulin 2.9 Albumin Globulin Ratio 1.2 Performing Lab: see note ML - [facility] LB PROF 14(COMP METB) (Not yet reviewed by provider) Interpretation: Performing Lab: Notes/Report: [facility] , Sodium 142 136-145 mmol/L [...] Performing Lab: see note ML - [facility] LB BILIRUBIN CONJUGATED (DIRECT ) (Not yet reviewed by provider) Interpretation: Performing Lab: Notes/Report: [facility] , Bilirubin Direct 0.2 0.0-0.2 mg/dL Performing Lab: see note ML - [facility] LB TSH W/ REFLEX FT4 (Not yet r eviewed by provider) Interpretation: Performing Lab: Notes/Report: [facility] , TSH W/ REFLEX FT4 1.691 0.358-3.740 uIU/mL Performing Lab: see note ML - [facility] LB PROF 14(COMP METB) (Not yet reviewed by provider) Interpretation: Performing Lab: Notes/Report: [facility] , Sodium 142 136-145 mmol/L [...] Performing Lab: see note ML - [facility] LB CBC AUTO DIFF (Not yet revie wed by provider) Interpretation: Performing Lab: Notes/Report: [facility] , White Blood Count 3.8 4.0-11.0 [...] Performing Lab: see note ML - [facility] LB BILIRUBIN CONJUGATED (DIRECT ) (Not yet reviewed by provider) Interpretation: Performing Lab: Notes/Report: [facility] , Bilirubin Direct 0.2 0.0-0.2 mg/dL Performing Lab: see note ML - [facility] LB TSH W/ REFLEX FT4 (Not yet r eviewed by provider) Interpretation: Performing Lab: Notes/Report: [facility] , TSH W/ REFLEX FT4 2.132 0.358-3.740 uIU/mL Performing Lab: see note ML - [facility] LB PROF 14(COMP METB) (Not yet reviewed by provider) Interpretation: Performing Lab: Notes/Report: [facility] , Sodium 140 136-145 mmol/L [...] Performing Lab: see note ML - [facility] LB CBC AUTO DIFF (Not yet revie wed by provider) Interpretation: Performing Lab: Notes/Report: [facility] , White Blood Count 3.1 [...] Performing Lab: see note ML - [facility] LB PROF 14(COMP METB) (Not yet reviewed by provider) Interpretation: Performing Lab: Notes/Report: [facility] , Sodium 144 136-145 mmol/L [...] 1.3 Performing Lab: see note ML - [facility] LB CBC AUTO DIFF (Not yet revie wed by provider) Interpretation: Performing Lab: Notes/Report: [facility] , White Blood Count 4.7 4.0-11.0 [...] 3/uL Performing Lab: see note ML - [facility] LB Manual Differential (Not yet reviewed by provider) Interpretation: Performing Lab: Notes/Report: [facility] , Segmented Neutrophils % Manual 64.0 43.0-75.0 [...] 1 0 3/uL Performing Lab: see note ML - [facility] LB BILIRUBIN CONJUGATED (DIRECT ) (Not yet reviewed by provider) Interpretation: Performing Lab: Notes/Report: [facility] , Bilirubin Direct 0.2 0.0-0.2 mg/dL Performing Lab: see note - [facility] LB CBC AUTO DIFF (Not yet revie wed by provider) Interpretation: Performing Lab: Notes/Report: [facility] , White Blood Count 4.4 [...] Performing Lab: see note ML - [facility] LB PROF 14(COMP METB) (Not yet reviewed by provider) Interpretation: Performing Lab: Notes/Report: [facility] , Sodium 140 136-145 mmol/L [...] Performing Lab: see note ML - [facility] LB CBC AUTO DIFF (Not yet revie wed by provider) Interpretation: Performing Lab: Notes/Report: [facility] , White Blood Count 4.1 [...] Performing Lab: see note ML - [facility] LB BILIRUBIN CONJUGATED (DIRECT ) (Not yet reviewed by provider) Interpretation: Performing Lab: Notes/Report: [facility] , Bilirubin Direct 0.2 0.0-0.2 mg/dL Performing Lab: see note ML - [facility] LB PROF 14(COMP METB) (Not yet reviewed by provider) Interpretation: Performing Lab: Notes/Report: [facility] , Sodium 143 136-145 mmol/L [...] Performing Lab: see note ML - [facility] LB BILIRUBIN CONJUGATED (DIRECT ) (Not yet reviewed by provider) Interpretation: Performing Lab: Notes/Report: [facility] , Bilirubin Direct 0.2 0.0-0.2 mg/dL Performing Lab: see note ML - [facility] LB CBC AUTO DIFF (Not yet revie wed by provider) Interpretation: Performing Lab: Notes/Report: [facility] , White Blood Count 5.5 [...] fL Performing Lab: see note ML - [facility] LB PROF 14(COMP METB) (Not yet reviewed by provider) Interpretation: Performing Lab: Notes/Report: [facility] , Sodium 143 136-145 mmol/L [...] Ratio 1.0 Performing Lab: see note - [facility] LB TSH (Not yet reviewed by pro vider) Interpretation: Performing Lab: Notes/Report: [facility] , Thyroid Stimulating Hormone 1.427 0.358-3.740 uIU/mL Performing Lab: see note - [facility] LB Manual Differential (Not yet reviewed by provider) Interpretation: Performing Lab: Notes/Report: [facility] , Segmented Neutrophils % Manual [...] 1+ Ovalocytes 1+ Performing Lab: see note - [facility] LB Packed Red Blood Cells (Not yet reviewed by provider) Interpretation: Performing Lab: Notes/Report: Packed Red Blood Cells [id number] ON RC TRANSFUSED 04/01/24 1444 Type and Screen (Not yet rev iewed by provider) Interpretation: Performing Lab: Notes/Report: [facility] , Blood Type O Negative Antibody Screen NEGATIVE CBC AUTO DIFF (Not yet revie wed by provider) Interpretation: Performing Lab: Notes/Report: [facility] , White Blood Count 5.2 [...] Performing Lab: see note ML - [facility] LB Blood Culture 1 (Not yet rev iewed by provider) Interpretation: Performing Lab: Notes/Report: [facility] , Blood Culture 1 See Below For Report Blood Culture 1 NG5D NO GROWTH AT 5 DAYS.^NO GROWTH AT 5 DAYS. Performing Lab: see note ML - [facility] LB Blood Culture 2 (Not yet rev iewed by provider) Interpretation: Performing Lab: Notes/Report: [facility] , Blood Culture 2 See Below For Report Blood Culture 2 NG5D NO GROWTH AT 5 DAYS.^NO GROWTH AT 5 DAYS. Performing Lab: see note ML - [facility] LB CT CHEST W CON (Not yet revi ewed by provider) Interpretation: Performing Lab: Notes/Report: Source Facility: [facility]-[address] [place] [address] [place] [address] CT Scan Report Signed Patient: YASMIN JONES MR#: [id number] : 1970 Acct:[id number] Age/Sex: 53 / F ADM Date: 04/29/24 Loc: CT Attending Dr: Aarti Hope M.D. Ordering Physician: Aarti Hope M.D. Date of Service: 04/29/24 Procedure(s): CT chest w con Accession Number(s): [id number] cc: PhysicianNon-Staff Josselyn [place] [address] Patient Name: YASMIN JONES MRN: [id number] date: 1970 Sex: F Assigned Patient Location: CT Current Patient Location: CARD Accession/Order Number: [id number] Exam Date: 04/29/2024 12:21 Report Date: 04/29/2024 [...] mediastinal lymph nodes. There is a left-sided Hqyxen-k-Jgll catheter. Patient has had interval bilateral mastectomy. There is a suspected sizer machine on the right. On the left, there [...] Seema Martin M.D.04/29/2024 12:54 PM Dictation Location: [place] [address] Electronically authenticated by: [id number] Y Date: 04/29/2024 12:54 Dictated By: Seema Martin M.D. Signed By: 04/29/24 1257 DD/ 1254 TD/TT: Solar Installation Foreman: [place] [address] CT Scan Report Signed Patient: YASMIN JONES MR#: [id number] : 1970 Acct:[id number] Age/Sex: 53 / F ADM Date: 04/29/24 Loc: CT Attending Dr: Arturo Hope M.D. Ordering Physician: Aarti Hope M.D. Date of Service: 04/29/24 Procedure(s): CT nelly st w con Accession Number(s): [id number] cc: Physician,Non-Staff Josselyn The [place] [id number] Patient Name: YASMIN JONES MRN: [id number] date: 1970 Sex: F Assigned Patient Location: CT Current Patient Location: CARD Accession/Order Number: [id number] Exam Date: 04/29/2024 12:21 Report Date: 04/29/2024 [...] mediastinal lymph nodes. There is a left-sided Hdwouw-r-Llua catheter. Patient valverde s had interval bilateral mastectomy. There is a suspected sizer machine o n the right. On the left, [...] The gallbladder is contracted. No obvious gallstones a re noted. The spleen and pancreas show no [...] Seema Martin M.D.04/29/2024 12:54 PM Dictation Location: [place] [address] Electronically authenticated by: [id number] Y Date: 04/29/2024 12:54 Dictated By: Seema Martin M.D. Signed By: 04/29/24 1257 DD/ 1254 TD/TT: Solar Installation Foreman: CT abdomen pelvis w con (Not yet reviewed by provider) Interpretation: Performing Lab: Notes/Report: Source Facility: [place] [address] CT Scan Report Signed Patient: YASMIN JONES MR#: [id number] : 1970 Acct:[id number] Age/Sex: 53 / F ADM Date: 04/29/24 Loc: CT Attending Dr: Aarti Hope M.D. Ordering Physician: Aarti Hope M.D. Date of Service: 04/29/24 Procedure(s): CT abdomen pelvis w con Accession Number(s): [id number] cc: Physician,Non-Staff Josselyn [place] [address] Patient Name: YASMIN JONES MRN: [id number] date: 1970 Sex: F Assigned Patient Location: CT Current Patient Location: CARD Accession/Order Number: [id number] Exam Date: 04/29/2024 12:21 Report Date: 04/29/2024 [...] mediastinal lymph nodes. There is a left-sided Fprpbd-k-Hbkd catheter. Patient has had interval bilateral mastectomy. There is a suspected sizer machine on the right. On the left, there [...] Seema Martin M.D.04/29/2024 12:54 PM Dictation Location: [place] [address] Electronically authenticated by: [id number] Y Date: 04/29/2024 12:54 Dictated By: Seema Martin M.D. Signed By: 04/29/24 1257 DD/ 1254 TD/TT: Solar Installation Foreman: [place] [address] CT Scan Report Signed Patient: YASMIN JONES MR#: [id number] : 1970 Acct:[id number] Age/Sex: 53 / F ADM Date: 04/29/24 Loc: CT Attending Dr: Arturo Hope M.D. Ordering Physician: Aarti Hope M.D. Date of Service: 04/29/24 Procedure(s): CT abdomen pelvis w con Accession Number(s): [id number] cc: Physician,Non-Staff Josselyn [place] [address] Patient Name: YASMIN JONES MRN: [facility]:[id number] date: 1970 Sex: F Assigned Patient Location: CT Current Patient Location: CARD Accession/Order Number: [id number] Exam Date: 04/29/2024 12:21 Report Date: 04/29/2024 [...] mediastinal lymph nodes. There is a left-sided Wmxctx-t-Fvty catheter. Patient valverde s had interval bilateral mastectomy. There is a suspected sizer machine o n the right. On the left, [...] The gallbladder is contracted. No obvious gallstones a re noted. The spleen and pancreas show no [...] Seema Martin M.D.04/29/2024 12:54 PM Dictation Location: [place] [address] Electronically authenticated by: [id number] Y Date: 04/29/2024 12:54 Dictated By: Seema Martin M.D. Signed By: 04/29/24 1257 DD/ 1254 TD/TT: Solar Installation Foreman: Immunoglobulins A/E/G/M, Ser um (Not yet reviewed by provider) Interpretation: Performing Lab: Notes/Report: [facility] , Immunoglobulin G, Qn, Serum 382 418-8634 mg/dL Immunoglobulin A, Qn, Serum 87 87-352 mg/dL Immunoglobulin M, Qn, Serum 51 26-217 mg/dL Immunoglobulin E, Total <2 6-495 IU/mL Performed at: - [address] [id number] Regrind Mill Operator: Vik Georges PhD, Phone: [phone] Performed at: - [address] [id number] Regrind Mill Operator: Perla Henderson MD, Phone: [phone] Performing Lab: see note LC - [facility] LB LAB TESTING (Not yet reviewe d by provider) Interpretation: Performing Lab: Notes/Report: AMIKACIN,PEAK [facility] , Miscellaneous Test COMMENT . Test Ordered: Amikacin Peak, Serum Amikacin Peak, Serum 19.4 [L ] ug/mL CB Reference Range: 20.0-30.0 Detection Limit = 0.8 <0.8 indicates None Detected Performed at: - [facility] [address] [id number] Regrind Mill Operator: Vik Georges PhD, Phone: [phone] Performing Lab: see note LC - [facility] LB CBC AUTO DIFF (Not yet revie wed by provider) Interpretation: Performing Lab: Notes/Report: [facility] , White Blood Count 6.5 [...] 10 3/uL Performing Lab: see note - [facility] LB CREATININE (Not yet reviewed by provider) Interpretation: Performing Lab: Notes/Report: [facility] , Creatinine 0.77 0.55-1.02 mg/dL Estimated GFR ( Joanna >60 >=60 mL/min/1.73m 2 Estimated GFR (Non- Le >60 >=60 mL/min/1.73m 2 Performing Lab: see note [facility] LIVER PROFILE (Not yet revie wed by provider) Interpretation: Performing Lab: Notes/Report: [facility] , Bilirubin Total 0.5 0.2-1.0 mg/dL Bilirubin Direct 0.1 0.0-0.2 mg/dL Aspartate Amino Transferase 24 15-37 U/L Alanine Aminotransferase 36 14-59 U/L Alkaline Phosphatase 102 46-116 U/L Total Protein 5.9 6.4-8.2 g/dL Albumin Level 2.9 3.4-5.0 g/dL Globulin 3.0 Albumin Globulin Ratio 1.0 Performing Lab: see note [facility] Amikacin Trough, Serum (Not yet reviewed by provider) Interpretation: Performing Lab: Notes/Report: [facility] , Amikacin Trough, Serum <0.8 1.0-8.0 ug/mL Verified by repeat analysis Detection Limit = 0.8 <0.8 indicates None Detected Performed at: [place] [address] Regrind Mill Operator: Vik Georges PhD, Phone: [phone] Performing Lab: see note [facility] LB Amikacin Peak, Serum (Not ye t reviewed by provider) Interpretation: Performing Lab: Notes/Report: [facility] , Amikacin Peak, Serum 22.1 20.0-30.0 ug/mL Detection Limit = 0.8 <0.8 indicates None Detected Performed at: [address] [id number] Regrind Mill Operator: Vik Georges PhD, Phone: [phone] Performing Lab: see note [facility] LB CREATININE (Not yet reviewed by provider) Interpretation: Performing Lab: Notes/Report: [facility] , Creatinine 0.82 0.55-1.02 mg/dL Estimated GFR ( Joanna >60 >=60 mL/min/1.73m 2 Estimated GFR (Non- Le >60 >=60 mL/min/1.73m 2 Performing Lab: see note - [facility] LB LIVER PROFILE (Not yet revie wed by provider) Interpretation: Performing Lab: Notes/Report: [facility] , Bilirubin Total 0.6 0.2-1.0 mg/dL Bilirubin Direct 0.1 0.0-0.2 mg/dL Aspartate Amino Transferase 18 15-37 U/L Alanine Aminotransferase 21 14-59 U/L Alkaline Phosphatase 81 46-116 U/L Total Protein 6.2 6.4-8.2 g/dL Albumin Level 2.9 3.4-5.0 g/dL Globulin 3.3 Albumin Globulin Ratio 0.9 Performing Lab: see note [facility] Amikacin Trough, Serum (Not yet reviewed by provider) Interpretation: Performing Lab: Notes/Report: [facility] , Amikacin Trough, Serum <0.8 1.0-8.0 ug/mL Verified by repeat analysis Detection Limit = 0.8 <0.8 indicates None Detected Performed at: [address] [id number] Regrind Mill Operator: Vik Georges PhD, Phone: [phone] Performing Lab: see note [facility] APTT (Not yet reviewed by jelena [...] by provider) Interpretation: Performing Lab: Notes/Report: [facility] , White Blood Count 5.6 [...] Performing Lab: see note ML - [facility] LB PROF 14(COMP METB) (Not yet reviewed by provider) Interpretation: Performing Lab: Notes/Report: [facility] , Sodium 140 136-145 mmol/L [...] Performing Lab: see note ML - [facility] LB PROF 14(COMP METB) (Not yet reviewed by provider) Interpretation: Performing Lab: Notes/Report: [facility] , Sodium 142 136-145 mmol/L [...] Performing Lab: see note ML - [facility] LB FERRITIN (Not yet reviewed b y provider) Interpretation: Performing Lab: Notes/Report: [facility] , Ferritin 669.0 8.0-252.0 ng/mL Performing Lab: see note - [facility] LB FOLATE (Not yet reviewed by provider) Interpretation: Performing Lab: Notes/Report: [facility] , Folate 7.70 8.60-58.90 ng/mL Performing Lab: see note - [facility] LB Vitamin B12 (Not yet reviewe d by provider) Interpretation: Performing Lab: Notes/Report: [facility] , Vitamin B12 >2000 232-1245 pg/mL Performed at: - [facility] [address] [id number] [employer]ind Mill Operator: Vik Georges PhD, Phone: [phone] Performing Lab: see note - [facility] LB CT head/brain wo/w con (Not yet reviewed by provider) Interpretation: Performing Lab: Notes/Report: Source Facility: [place] [address] CT Scan Report Signed Patient: YASMIN JONES MR#: [id number] : 1970 Acct:[id number] Age/Sex: 53 / F ADM Date: 08/25/24 Loc: CT Attending Dr: Aarti Hope M.D. Ordering Physician: Aarti Hope M.D. Date of Service: 08/25/24 Procedure(s): CT head/brain wo/w con Accession Number(s): [id number] cc: LYNDA JARQUIN [place] [address] Patient Name: YASMIN JONES MRN: [id number] date: 1970 Sex: F Assigned Patient Location: CT Current Patient Location: INF Accession/Order Number: [id number] Exam Date: 08/25/2024 09:31 Report Date: 08/25/2024 [...] Martin M.D. 08/25/2024 9:46 AM Dictation Location: [place] [address] Electronically authenticated by: [id number] Y Date: 08/25/2024 09:46 Dictated By: Seema Martin M.D. Signed By: 08/25/2449 DD/ TD/TT: Solar Installation Foreman: [place] [address] CT Scan Report Signed Patient: YASMIN JONES MR#: [id number] : 1970 Acct:[id number] Age/Sex: 53 / F ADM Date: 08/25/24 Loc: CT Attending Dr: Arturo Hope M.D. Ordering Physician: Aarti Hope M.D. Date of Service: 08/25/24 Procedure(s): CT head/brain wo/w con Accession Number(s): [id number] cc: LYNDA JARQUIN [address] [address] Patient Name: YASMIN JONES MRN: [id number] date: 1970 Sex: F Assigned Patient Location: CT Current Patient Location: [facility] Accession/Order Number: [id number] Exam Date: 08/25/2024 09:31 Report Date: 08/25/2024 [...] is opacification the left frontal sinus and so me of the left ethmoid air cells. The [...] Martin M.D. 08/25/2024 9:46 AM Dictation Location: [place] [address] Electronically authenticated by: [id number] Y Date: 08/25/2024 09:46 Dictated By: Seema Martin M.D. Signed By: 08/25/2449 DD/ 5 TD/TT: Solar Installation Foreman: Reason For Referral No Information Encounters Encounter Location Date Provider Diagnosis [facility] Oncology [address] [facility] [place] [address] 06/07/2024 Aarti Hope [facility] Oncology [address] [facility] [place] [address] 01/05/2024 Aartihilton Hope [facility] Oncology [address] [facility] [place] [address] 05/17/2024 Aarti Hope [facility] Oncology [address] [facility] [place] [address] 07/05/2024 Aartiazalia Hope [facility] Oncology [address] [facility] [place] [address] 07/26/2024 Aartiazalia Hope [facility] Oncology [address] [facility] [place] [address] 02/09/2024 Aartiazalia Hope [facility] Oncology [address] [facility] [place] [address] 03/15/2024 Aarti Hope [facility] Oncology [address] [facility] [place] [address] 04/12/2024 Aartiazalia Hope [facility] Oncology [address] [facility] [place] [address] 12/10/2023 Aartiazalia Hope [facility] Oncology [address] [facility] [place] [address] 09/20/2024 Aartiazalia Hope [facility] Oncology [address] [facility] [place] [address] 10/25/2024 Aartihilton Hope [facility] Oncology [address] [facility] [place] [address] 02/19/2024 Aartiazalia Hope [facility] Oncology [address] [facility] [place] [address] 03/11/2024 Aartiazalia Hope [facility] Oncology [address] [facility] [place] [address] 04/01/2024 Aartiazalia Hope [facility] Oncology [address] [facility] [place] [address] 04/22/2024 Aartiazalia Hope [facility] Oncology [address] [facility] [place] [address] 10/25/2024 Aarti Hope [facility] Oncology [address] [facility] [place] [address] 10/11/[facility] [address] [facility] [place] [address] 11/12/2023 Aarti Hope Plan Of Treatment Pending Test [...] AUTO DIFF 06/20/2024 CBC AUTO DIFF 07/26/2024 CBC AUTO DIFF 10/11/2024 CBC AUTO DIFF 10/25/2024 CBC AUTO DIFF 11/01/2024 CREATININE 06/20/2024 CREATININE 06/06/2024 CREATININE 01/05/2024 CREATININE 01/14/2024 CRP 02/05/2024 CULTURE URINE 06/30/2023 FERRITIN 06/16/2023 FERRITIN 08/18/2023 FERRITIN 08/16/2024 FOLATE 08/16/2024 FREE T4 08/11/2023 IRON AND TIBC 08/18/2023 IRON AND TIBC 06/16/2023 IRON AND TIBC 08/16/2024 LAB TESTING 06/01/2024 LAB TESTING 09/29/2023 LAB TESTING 11/12/2023 LAB TESTING 11/12/2023 LIVER PROFILE 01/14/2024 LIVER PROFILE 01/05/2024 LIVER PROFILE 06/06/2024 LIVER PROFILE 06/20/2024 MAGNESIUM 10/25/2024 MAGNESIUM 10/11/2024 MAGNESIUM 11/12/2023 MAGNESIUM 10/26/2023 MAGNESIUM 09/08/2023 MAGNESIUM [...] PROF 14(COMP METB) 03/23/2024 PROF 14(COMP METB) 10/11/2024 PROF 14(COMP METB) 10/25/2024 PROF 14(COMP METB) 11/01/2024 PROF 14(COMP METB) 07/26/2024 PROF 14(COMP METB) [...] Culture 2 04/27/2024 CA echo doppler complete 10/19/2024 CA echo doppler complete 09/11/2023 Erythrocyte Sedimentation Rate Manual Differential 03/11/2024 Manual Differential 09/15/2023 Manual Differential 09/01/2023 Manual Differential 09/22/2023 Manual Differential 10/13/2023 Manual Differential 07/10/2023 Manual Differential 06/23/2023 Manual Differential 06/16/2023 Manual Differential 08/11/2023 Manual Differential 08/04/2023 Manual Differential 08/25/2023 Manual Differential 07/28/2023 Manual Differential 07/14/2023 Manual Differential 07/13/2023 Manual Differential 07/09/2023 Manual Differential 10/11/2024 Manual Differential 04/01/2024 Second ABO/RH Type 06/09/2023 Packed Red Blood Cells 06/09/2023 Packed Red Blood Cells 07/13/2023 Packed Red Blood Cells 04/01/2024 Packed Red Blood Cells 02/09/2024 Type and Screen 02/09/2024 Type and Screen 04/01/2024 Type and Screen 07/13/2023 Type and Screen 08/04/2023 Type and Screen 06/09/2023 PET skull to mid thigh 11/01/2023 PET skull to mid thigh 10/11/2024 CT abdomen pelvis w con 04/29/2024 TSH [...] Trough, Serum 06/06/2024 Amikacin Peak, Serum 06/09/2024 CA 27.29 10/11/2024 CA 15-3 10/11/2024 Insurance Providers Payer Name Payer Address Payer Phone Subscriber Number Group Number Insured Name Patient Relationship to Insured Coverage Start Date Coverage End Date [employer] [place] [address] [place] [address] [id number] [place] Yasmin Jones Self - patient is the insured 4
--- OUTSIDE RECORDS SUMMARY | 2024-11-04 10:24 | XMS_ITS | Encounter Summary ---
Author Organization [facility] Address [address] [place] [address] Care Team Providers Care Nursing Informatics Analyst Name Role Phone Randy Lu MD Primary Care Provider [phone] Encounter Details Date Type Department Care Team (Late Contact Info) Description 07/13/2023 Abstract [facility] [address] [place] [address] Nahomy Watson LPN [address] [place] [address] Social History Tobacco Use Types Packs/Day Years [...] Department Care Team (Late Contact Info) Description 11/24/2024 9:30 AM EDT Office Visit [facility] [address] [place] [address] Prince Jay, DO [address] [place] [address] 06/12/2025 10:00 AM EDT Office Visit [facility] [address] [place] [address] Evan Thompson, DO [address] [place] [address] documented as of this encounter Visit Diagnoses Not on filedocumented in this encounter Care Teams Nursing Informatics Analyst Relationship Specialty Start Date End Date Randy Lu MD PCP - General Family Medicine 04/02/23 documented as of this encounter
--- OUTSIDE RECORDS SUMMARY | 2024-11-04 10:24 | XMS_ITS | Encounter Summary ---
Author Organization [facility] Address [id number] [address] [place] [address] Care Team Providers Care Value Stream Manager Name Role Phone Amy Collier INTELLIGENCE APPLICATIONS-ASSOCIATE WEB DEVELOPER Primary Care Provider + Encounter Details Date Type Department Care Team (Late st Contact Info) Description 08/31/2023 Orders Only [facility] Internal Medicine - Family Medicine [address] [place] [address] Kodi Monteiro CMA Malignant neoplasm of right female breast, unspecified estrogen receptor status, unspecified site of breast ([facility]) Social History Tobacco Use Types Packs/Day Years [...] [address] CABELLO [facility] [address] [place] [address] Marisela Davila INTELLIGENCE APPLICATIONS-ASSOCIATE WEB DEVELOPER [address], [facility] [address] [facility] [place] [address] documented as of this encounter Visit Diagnoses Diagnosis Malignant neoplasm of right female breast, unspecified estrogen receptor status, unspecified site of breast ([facility]) documented in this encounter Additional Health Concerns Infection Onset Date Last Indicated Resolved Time SHIPYARD SUPERVISOR Comment:LT CHEST WALL TISSUE(08/12/24) 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
--- OUTSIDE RECORDS SUMMARY | 2024-11-04 10:24 | XMS_ITS | Encounter Summary ---
Author Organization [facility] Address [id number] [address] [place] [address] Care Team Providers Care Cam Milling Machine Operator Name Role Phone Amy Collier POLICE CAPTAIN PRECINCT-JIGGER ARTISAN Primary Care Provider + Encounter Details Date Type Department Care Team (Late st Contact Info) Description 07/14/2023 Orders Only [facility] Internal Medicine - Family Medicine [address] [place] [address] External, Scanning Provider Social History [...] How often do you attend chur or taoist services? 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
--- OUTSIDE RECORDS SUMMARY | 2024-11-04 10:24 | XMS_ITS | Encounter Summary ---
[facility] Address [facility] [place]-[id number] [address] [place] [address] Care Team Providers Care Shellfish Grower Name Role Phone Amy Collier SILVERWARE ASSEMBLER-MANAGER GARAGE Primary Care Provider + Encounter Details Date Type Department Care Team (Late st Contact Info) Description 04/07/2023 Orders Only [facility] Internal Medicine - Family Medicine [address] [place] [address] External, Scanning Provider Social History [...] How often do you attend chur or restoration services? 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
--- OUTSIDE RECORDS SUMMARY | 2024-11-04 10:24 | XMS_ITS | Encounter Summary ---
Author Organization [facility] Address [facility] [place]-[id number] [address] [place] [address] Care Team Providers Care Senior Benefits Manager Name Role Phone Amy Collier CERTIFIED MEETING PROFESSIONAL-PICTURE ENLARGER Primary Care Provider + Encounter Details Date Type Department Care Team (Late st Contact Info) Description 03/10/2023 Orders Only [facility] Internal Medicine - Family Medicine [address] [place] [phone] Amy Collier APRN-PICTURE ENLARGER [address] [place] [address] Abnormal mammogram of right breast Social History [...] Recorded Total Score 0 03/07/2022 [facility] Alligator of Occupat ional Health - Occupational Stress [...] Surgery [address] [place] [address] Marisela Davila APRN-PICTURE ENLARGER [address], [address] [place] [address] documented as of this encounter [...] Onset Date Last Indicated Resolved Time SODA FOUNTAIN OPERATOR Comment:LT CHEST WALL TISSUE(08/12/24) 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
--- OUTSIDE RECORDS SUMMARY | 2024-11-04 10:24 | XMS_ITS | Encounter Summary ---
Author Organization [email or web address] Address [facility] [id number] [address] [place] [address] Care Team Providers Care Glaciologist Name Role Phone Amy Collier DIE ASSEMBLER-HOTEL LOBBY CONCIERGE Primary Care Provider + Encounter Details Date Type Department Care Team (Late st Contact Info) Description 03/30/2023 Orders Only [facility] Internal Medicine - Family Medicine [address] [place] [address] Amy Collier APRN-HOTEL LOBBY CONCIERGE [address] [place] [address] Social History Tobacco Use Types Packs/Day Years [...] Answer Date Recorded Total Score 0 03/07/2022 [facility] [place] of Occupat ional Health - Occupational [...] Surgery [address] [place] [address] Marisela Davila DIE ASSEMBLER-HOTEL LOBBY CONCIERGE [address], [facility] [address] [place] [address] documented as of this encounter Visit Diagnoses Not on filedocumented in this encounter Additional Health Concerns Infection Onset Date Last Indicated Resolved Time BEDSPREAD INSPECTOR Comment:LT CHEST WALL TISSUE(08/12/24) 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
--- OUTSIDE RECORDS SUMMARY | 2024-11-04 10:24 | XMS_ITS | Encounter Summary ---
Author Organization [facility] Address [facility] [place]-[id number] [address] [place] [address] Care Team Providers Care Print Developer Name Role Phone Amy Collier BAG MACHINE OPERATOR-ANATOMY TEACHER Primary Care Provider + Encounter Details Date Type Department Care Team (Late st Contact Info) Description 09/01/2023 Orders Only [facility] Internal Medicine - Family Medicine [address] [place] [address] Ref Prov, [place] [address] Social History Tobacco Use Types Packs/Day Years [...] Date Recorded Total Score 0 03/07/2022 [facility] of Occupat ional [...] Reconstructive Surgery [address] [place] [address] Marisela Davila APRN-CNP [address], [address] [place] [address] documented as of this encounter [...] documented as of this encounter Care Teams Print Developer Relationship Specialty Start Date End Date Amy Collier APRN-CNP [address] [place] [address] PCP - General 11/28/16 documented as of this encounter
--- OUTSIDE RECORDS SUMMARY | 2024-11-04 10:24 | XMS_ITS | Encounter Summary ---
Author Organization [facility] Address [facility] [place] [address] Care Team Providers Care Human Factors Engineer Name Role Phone Nilda Carolina RICHTER Unavailable [phone] Jessica Hope MD Unavailable [phone] Lynda Manuel PIPE INSPECTOR Primary Care Provider [phone] Shereen Smallwood PA-C Unavailable [phone] Radha Martinez RN Unavailable Amy Collier SUPERVISOR WORD PROCESSING Primary Care Provider [phone] Source Comments In the event this information is protected by the Federal Confidentiality of Alcohol and Drug AbusePatient Records regulations: The Federal rules restrict any use of the information to criminally investigate or prosecute any alcohol or drug abuse patient.[facility] Encounter Details Date Type Department Care Team (Late st Contact Info) Description 09/26/2024 Cure Form [facility] [address] [place] [address] Carlos Mccain DO, PhD [address] [facility] [address] [place] [address] Social History Tobacco Use Types [...] any time in the past 12 m [facility], were you homeless or living in a prison (including now)? No 08/29/2024 Area Deprivation Index Answer Date [place] rded National Score (1-100), lower number is lower ri sk 82 07/21/2024 State Score (1-10), lower number is lower risk 7 07/21/2024 Data from: https://www.neighborhoodatlas.medicine.[facility].edu/. Last address used for calculation [address] 07/21/2024 Comments Unknown Sex [...] EDT Appointment [facility] [place] [address] [facility] [facility] [address] [place] [address] With Perfusion 11/29/2024 1:00 PM EDT Office Visit [facility] Ophthalmology [address] [place] [address] Anitra Walters MD [address] [place] [address] Diagnostics, Eye Tech And [address] [facility] [address] [place] [address] Cataract Eval 12/01/2024 2:00 PM EDT [facility] [address] [place] [address] Carlos Mccain DO, PhD [address] [facility] [address] [place], [place] [id number] Established patient Visit with Dr. Mccain for MRI review and follow up documented as of this encounter Visit Diagnoses Not on filedocumented in this encounter Care Teams Human Factors Engineer Relationship Specialty Start Date End Date Lynda Manuel CNP [address] [place] [address] PCP - General Family Medicine 06/14/24 09/26/24 Amy Collier, MONICA [address] [place] [address] PCP - General Family Medicine 09/27/24 Carolina Munguia APRN [address] [facility] [address] [facility] [place] [address] 12/04/23 Jessica Hope MD [address] [place] [address] Referring Hematology/Oncology 06/14/24 Shereen Smallwood PA-C [address] [address] [facility] Referring Orthopedics 06/15/24 [place] [address] [place] [id number] Specialty Cs Associate Hematology/Oncology 07/31/24 documented as of this encounter
--- OUTSIDE RECORDS SUMMARY | 2024-11-04 10:24 | XMS_ITS | Clinical Summary ---
Author Organization [facility] Address [address] [place] [address] Care Team Providers Care Roll Panner Name Role Phone Carolina Munguia APRN Unavailable [phone] Jessica Hope MD Unavailable [phone] Shereen Smallwood PA-C Unavailable [phone] Radha Martinez RN Unavailable Amy Collier MANUFACTURING ENGINEERING TECHNICIAN Primary Care Provider [phone] Allergies Active Allergy Reactions Criticality Noted Date [...] - 10/07/2024 6:30 PM EDT Surgery Anesthesia [facility] [address] [address] Carlos Mccain DO, PhD STEREOTACTIC RADIOSURGERY 1 COMPLEX CRANIAL LESION 10/07/2024 5:00 PM EDT Hospital Encounter Anesthesia [address] [address] Carlos Mccain DO, PhD 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] 10/07/2024 9:00 AM EDT Office Visit Neurosurgery [address] [place] [address] Secondary malignant neoplasm of brain (HCC) (Primary Dx) 10/07/2024 7:04 AM EDT - 10/07/2024 11:59 PM EDT Hospital Encounter Radiology [address] [place] [address] 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] Discharge Disposition: Home 10/07/2024 7:04 AM EDT - 10/07/2024 11:59 PM EDT Hospital Encounter Radiology [address] [place] [address] 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] Discharge Disposition: Home 10/07/2024 Radiation Oncology Note [facility] [address] [place] [address] Marcos Adams MD Procedure 10/07/2024 Radiation Oncology Note [facility] [address] [place] [address] Marcos Adams MD Completion Note 10/07/2024 Operative Note (Enc) [facility] Tumor [address] [address] Carlos Mccain DO, PhD 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) 10/07/2024 Orders Only Neurosurgery [address] [place] [address] Carlos Mccain DO, PhD Secondary malignant neoplasm of brain (HCC) (Primary Dx) 10/07/2024 Travel 10/04/2024 Telephone [facility] Tumor [address] [address] Carlos Mccain DO, PhD Patient Question 09/26/2024 Cure Form [facility] Tumor [address] [address] Carlos Mccain DO, PhD Secondary malignant neoplasm of brain (HCC) (Primary Dx) 09/26/2024 Cure Form [facility] Tumor [place] [id number] Carlos Mccain DO, PhD 09/23/2024 Telephone [place] [id number] Altagracia Johnston, OC Continuous Improvement Analyst - Other 09/22/2024 Telephone [facility] Tumor [place] [id number] Carlos Mccain DO, PhD 09/16/2024 8:40 AM EDT Office Visit Plastic Surgery [address] [address] Geno Ann APRN.PIPE FITTER SUPERVISOR MAINTENANCE Post-operative state (Primary Dx); S/P breast reconstruction; History of breast cancer 09/16/2024 7:30 AM EDT Visit (SP) Office Hematology/Oncolog y [id number] [place] [address] Sussy Syed APRN.PIPE FITTER SUPERVISOR MAINTENANCE Breast cancer metastasized to liver, unspecified laterality (HCC) (Primary Dx); Encounter for medication monitoring 09/16/2024 Patient Msg Hematology/Oncolog y [id number] [place] [address] Sussy Syed APRN.PIPE FITTER SUPERVISOR MAINTENANCE Follow up 09/07/2024 4:30 PM EDT - 09/07/2024 6:00 PM EDT Surgery Anesthesia [address] [address] Carlos Mccain DO, PhD STEREOTACTIC RADIOSURGERY 1 COMPLEX CRANIAL LESION 09/07/2024 4:30 PM EDT Hospital Encounter Anesthesia [address] [address] Carlos Mccain DO, PhD 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] 09/07/2024 9:00 AM EDT Office Visit Neurosurgery [id number] [place], [place] [id number] Secondary malignant neoplasm of brain (HCC) (Primary Dx) 09/07/2024 7:24 AM EDT - 09/07/2024 11:59 PM EDT Hospital Encounter Radiology [id number] [place], [place] [id number] 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] Discharge Disposition: Home 09/07/2024 7:23 AM EDT Hospital Encounter Radiology [address] [place] [address] Discharge Disposition: Home 09/07/2024 Radiation Oncology Note Radiation Oncology [address] [place] [address] Sam Chandra MD Completion Note 09/07/2024 Radiation Oncology Note Radiation Oncology [address] [place] [address] Sam Chandra MD Procedure 09/07/2024 Radiation Oncology Note Radiation Oncology [address] [place] [address] Sam Chandra MD Simulation Note 09/07/2024 Operative Note (Enc) [facility] [address] [place], [place] [phone] Carlos Mccain DO, PhD 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) 09/05/2024 Travel 09/05/2024 [place] [address] Provider, Ccf Questionnaire Submission 09/01/2024 Cure Form [facility] Tumor [address] [address] Carlos Mccain DO, PhD Secondary malignant neoplasm of brain (HCC) (Primary Dx) 09/01/2024 Cure Form [facility] Tumor [place] [id number] Carlos Mccain DO, PhD 08/30/2024 2:03 PM EDT - 08/30/2024 3:33 PM EDT Surgery Admitting [facility] [place] [phone] Leonidas Colorado MD REMOVAL OF TISSUE SHOER(S) W/O INSERTION OF IMPLANT 08/30/2024 12:08 PM EDT Anesthesia Event Admitting [facility] [place] [phone] Negar Butler MD Kalnitsky, Samuel, MD 08/26/2024 12:49 PM EDT - 09/01/2024 2:03 PM EDT Hospital Encounter HOSP MAIN G070 [address] [place] [id number] Dwayne Sahu DO Ornstein, Moshe, MD Delasos, Lukas, DO NEW BRAIN METS Discharge Disposition: Home 08/10/2024 Results Follow-Up Hematology/Oncolog y [address] [place] [id number] Aurelia Oneill MD from Last 3 Months Social History Tobacco Use Types Packs/Day Years Used Date Smoking Tobacco: Never Passive Smoke Exposure: Never Smokeless Tobacco: Never Alcohol Use Standard Drinks/Week Comments Not Currently 0 (1 standard drink = 0.6 oz pur e alcohol) Occasional wine Trippy Utilities Answer Date Recorded In the past 12 months has [employer], gas, oil, or water [employer] threatened to shut off services in [...] any time in the past 12 m [facility], were you homeless or living in a mcfp (including now)? No 08/29/2024 Area Deprivation Index Answer Date Milton rded National Score (1-100), lower number is lower ri sk 82 07/21/2024 State Score (1-10), lower number is lower risk 7 07/21/2024 Data from: https://www.neighborhoodatlas.medicine.[facility].edu/. Last address used for calculation [...] EDT Appointment [facility] [place] [address] [place] [address] With Perfusion 11/29/2024 1:00 PM EDT Office Visit [facility] Ophthalmology [address] [facility] [place], [place] [address] Anitra Walters MD [address] [facility] [place] [address] Diagnostics, [facility] [address] [place] [address] Cataract Eval 12/01/2024 2:00 PM EDT [facility] [address] [place] [address] Carlos Mccain DO, PhD [address] [place], [place] [phone] Established patient Visit with Dr. Mccain for [...] of reconstruction of both breasts REMOVAL TISSUE SHOER W/O INSERTION IMPLANT 08/30/2024 11:55 AM EDT [...] IMPRESSION: Examination performed for preprocedural planning purposes. Tunnel Miner: CARLOS Transcribe Date/Time: Oct 07 2024 8:54A [...] this is for gk planning purposes. - [id number] - - - - TECHNIQUE: CT head [...] or retention cysts in both maxillary antra. Founder And Chief Executive Officer (topogram) images: No additional findings. Procedure Note Provider, [facility] [place] - 10/07/2024 * * *Final Report* * [...] this is for gk planning purposes. - [id number] - - - - TECHNIQUE: CT head [...] or retention cysts in both maxillary antra. Founder And Chief Executive Officer (topogram) images: No additional findings. IMPRESSION IMPRESSION: Examination performed for preprocedural planning purposes. Tunnel Miner: CARLOS Transcribe Date/Time: Oct 07 2024 8:54A [...] and left inferior frontal lesion from 09/07/2024. Tunnel Miner: CARLOS Transcribe Date/Time: Oct 07 2024 8:56A [...] this is for gk planning purposes - [id number] - - - - TECHNIQUE: MRI brain [...] Basal cisterns are clear. Procedure Note Provider, [facility] [place] - 10/07/2024 * * *Final Report* * [...] this is for gk planning purposes - [id number] - - - - TECHNIQUE: MRI brain [...] and left inferior frontal lesion from 09/07/2024. Tunnel Miner: CARLOS Transcribe Date/Time: Oct 07 2024 8:56A [...] gamma knife planning, no acute intracranial pathology. Tunnel Miner: CARLOS Transcribe Date/Time: Sep 07 2024 9:09A [...] soft tissues are unremarkable. Procedure Note Provider, [facility] [place] - 09/07/2024 * * *Final Report* * [...] gamma knife planning, no acute intracranial pathology. Tunnel Miner: CARLOS Transcribe Date/Time: Sep 07 2024 9:09A Dictated by : SMILEY KING MD This examination was interpreted and the report reviewed and electronically signed by: SMILEY KING MD on Sep 07 2024 9:11AM EST us Carlos Mccain DO, PhD CT-PAMA Final Resul t * MRI BRAIN LOCALIZATION W IVCON (09/07/2024 8:44 AM EDT) Anatomical Region Laterality Modality Head Magnetic Resonan ce 09/07/2024 8:4 4 AM EDT Impressions 09/07/2024 8:56 AM EDT IMPRESSION: Unchanged presumed metastases in the inferior left frontal lobe and cerebellar vermis. Unchanged small enhancing nodule at the periphery of the left frontal lobe, possibly an additional metastasis or an incidental meningioma. No new enhancing lesion. Tunnel Miner: [facility] Transcribe Date/Time: Sep 07 2024 8:44A [...] basal cisterns are patent. Procedure Note Provider, [facility] [place] - 09/07/2024 * * *Final Report* * [...] an incidental meningioma. No new enhancing lesion. Tunnel Miner: PSCB Transcribe Date/Time: Sep 07 2024 8:44A [...] - 2.3 mg/dL 09/01/2024 5:58 AM EDT [facility] Blood BLOOD SPECIMEN / Unknown Venipuncture / Unknown 09/01/2024 4:17 AM EDT 09/01/2024 4:30 AM EDT Deena Ora [facility] Final Result Performing Organization Address [facility]/ZIP Co de Phone Number [facility] [address] [place] [address], [place] * PHOSPHORUS INORGANIC (09/01/2024 4:17 AM EDT) Only the most recent of7 resultswithin the time period is included. Phosphorus 3.4 2.7 - 4.8 mg/dL 09/01/2024 5:58 AM EDT [facility] Blood BLOOD SPECIMEN / Unknown Venipuncture / Unknown 09/01/2024 4:17 AM EDT 09/01/2024 4:30 AM EDT Deenajosé antonio Glynnley LABORATORY Final Result Performing Organization Address City/[facility] Co de Phone Number [facility] [address] [place] [address], [place] * (ABNORMAL) COMPREHENSIVE METABOLIC PANEL (09/01/2024 4:17 AM EDT) Only the most recent of7 resultswithin the time period is included. Protein, Total 5.7(L) 6.3 - 8.0 g/dL 09/01/2024 5:58 AM EDT [facility] Albumin 3.7(L) 3.9 - 4.9 g/dL 09/01/2024 5:58 AM EDT [facility] Calcium, Total 8.9 8.5 - 10.2 mg/dL 09/01/2024 5:58 AM [facility] Bilirubin, Total 0.5 0.2 - 1.3 mg/dL 09/01/2024 5:58 AM [facility] Alkaline Phosphatase 75 34 - 123 U/L 09/01/2024 5:58 AM [facility] AST 72(H) 13 - 35 U/L 09/01/2024 5:58 AM [facility] ALT 109(H) 7 - 38 U/L 09/01/2024 5:58 AM [facility] Glucose 105(H) 74 - 99 mg/dL 09/01/2024 5:58 AM [facility] Comment: The [place] Diabetes Association (ADA) provides guidance for cutoff [...] Standards of Medical Care in Diabetes 2016, [place] Diabetes Association. Diabetes Care. 2016.39(Suppl 1). BUN 19 7 - 21 mg/dL 09/01/2024 5:58 AM [facility] Creatinine 1.03(H) 0.58 - 0.96 mg/dL 09/01/2024 5:58 AM [facility] Sodium 140 136 - 144 mmol/L 09/01/2024 5:58 AM [facility] Potassium 4.0 3.7 - 5.1 mmol/L 09/01/2024 5:58 AM [facility] Chloride 107 98 - 107 mmol/L 09/01/2024 5:58 AM [facility] CO2 23 22 - 30 mmol/L 09/01/2024 5:58 AM [facility] Anion Gap 10 8 - 15 mmol/L 09/01/2024 5:58 AM EDT [facility] Estimated Glomerular Filtration Rate 65 >=60 mL/min/1. 73m 09/01/2024 5:58 AM EDT [facility] Comment:Estimated Glomerular Filtration Rate [...] us Deena Payan DO LABORATORY Final Result [facility] [place] [address], * (ABNORMAL) COMPLETE BLOOD COUNT AND DIFFERENTIAL (09/01/2024 4:17 AM EDT) Only the most recent of7 resultswithin the time period is included. WBC 7.56 3.70 - 11.00 k/uL 09/01/2024 4:54 AM EDT [facility] RBC 2.90(L) 3.90 - 5.20 m/uL 09/01/2024 4:54 AM EDT [facility] Hemoglobin 9.5(L) 11.5 - 15.5 g/dL 09/01/2024 4:54 AM EDT [facility] Hematocrit 28.1(L) 36.0 - 46.0 % 09/01/2024 4:54 AM EDT [facility] MCV 96.9 80.0 - 100.0 fL 09/01/2024 4:54 AM EDT [facility] MCH 32.8 26.0 - 34.0 pg 09/01/2024 4:54 AM EDT [facility] MCHC 33.8 30.5 - 36.0 g/dL 09/01/2024 4:54 AM EDT [facility] RDW-CV 19.4(H) 11.5 - 15.0 % 09/01/2024 4:54 AM EDT [facility] Platelet Count 210 150 - 400 k/uL 09/01/2024 4:54 AM EDT [facility] MPV 9.4 9.0 - 12.7 fL 09/01/2024 4:54 AM EDT [facility] Neutrophils % 77.9 % 09/01/2024 4:54 AM EDT [facility] Abs Neut 5.88 1.45 - 7.50 k/uL 09/01/2024 4:54 AM EDT [facility] Lymphocytes % 16.1 % 09/01/2024 4:54 AM EDT [facility] Abs Lymph 1.22 1.00 - 4.00 k/uL 09/01/2024 4:54 AM EDT [facility] Monocytes % 5.0 % 09/01/2024 4:54 AM EDT [facility] Abs Millard 0.38 <0.87 k/uL 09/01/2024 4:54 AM EDT [facility] Eosinophils % 0.0 % 09/01/2024 4:54 AM EDT [facility] Abs Eosin <0.03 <0.46 k/uL 09/01/2024 4:54 AM EDT [facility] Basophils % 0.1 % 09/01/2024 4:54 AM EDT [facility] Abs Baso <0.03 <0.11 k/uL 09/01/2024 4:54 AM EDT [facility] Immature Granulocytes % 0.9 % 09/01/2024 4:54 AM EDT [facility] Abs Immature Gran 0.07 <0.10 k/uL 025 4:54 AM EDT [facility] NRBC 0.0 /100 WBC 09/01/2024 4:54 AM EDT [facility] Absolute nRBC <0.01 <0.01 k/uL 09/01/2024 4:54 AM EDT [facility] Diff Type Auto 09/01/2024 4:54 AM EDT [facility] Blood BLOOD SPECIMEN / Unknown Venipuncture / Unknown 09/01/2024 4:17 AM EDT 09/01/2024 4:30 AM EDT Deena Payan DO LABORATORY Final Result Performing Organization Address [facility] de Phone Number [facility] [address] [place] [id number], [place] * (ABNORMAL) AMIKACIN PRE DOSE (08/31/2024 8:53 AM EDT) Only the most recent of2 resultswithin the time period is included. Amikacin, Pre Dose <0.8(L) 5.0 - 8.0 ug/mL 08/31/2024 11:37 AM EDT [facility] Comment: Reference ranges and high/low indicator flags are provided as general guidelines only. The treating physician must determine appropriate target levels/dosing based on the specific clinical situation. Result rechecked. Blood BLOOD SPECIMEN / Unknown Venipuncture / Unknown 08/31/2024 8:53 AM EDT 08/31/2024 9:00 AM EDT Deena Payan DO LABORATORY Final Result Performing Organization Address [facility] de Phone Number [facility] [address] [place] [id number], [place] * MRI BRAIN WO/W IVCON (08/31/2024 7:44 AM EDT) Anatomical Region Laterality Modality Head Magnetic Resonan ce 08/31/2024 7:44 AM EDT Impressions 08/31/2024 7:56 AM EDT IMPRESSION: 1. Multiple enhancing lesions representing metastasis. 2. At least 3 definite metastasis with dominant in inferior vermis. 3. Enhancement at left IAC apex is of unclear etiology. Tunnel Miner: PSCWillis Transcribe Date/Time: Aug 31 2024 7:49A [...] mass effect or collections. Procedure Note Provider, [facility] [place] - 08/31/2024 * * *Final Report* * [...] left IAC apex is of unclear etiology. Tunnel Miner: [facility] Transcribe Date/Time: Aug 31 2024 7:49A Dictated by : ANA BULLARD MD This examination was interpreted and the report reviewed and electronically signed by: ANA BULLARD MD on Aug 31 2024 7:54AM EST [facility] DO MRI-PAMA Final Result * SURGICAL PATHOLOGY (08/30/2024 12:40 PM EDT) Case Report Surgical Pathology Report Case: [id number] Authorizing Provider: Leonidas [place] MD Collected: 08/30/2024 12:40 PM Ordering Location: Admitting Received: 08/30/2024 01:02 PM Pathologist: Tracie Hutchinson MD Specimens: A) - Soft Tissue (Not otherwise specified), right breast skin B) - Hardware/Device/Fo reign Body, right breast category consultant 09/01/2024 2:20 PM EDT [facility] FINAL DIAGNOSIS A. Right breast skin, excision: - Carcinoma involving dermis, see comment. B. Right breast, category consultant removal: - Grossly unremarkable, collapsed, textured category consultant (Gross examination only). SS/MLG 09/01/2024 2:20 PM EDT [facility] at 1420 EDT Diagnosis Comment The morphologic features are compatible with breast origin. The lesion measures up to 10 mm and extends to inked specimen margins. ER, WY and HER2 are pending and will be reported separately. 09/01/2024 2:20 PM EDT [facility] Gross Description A. Soft [...] 08/30/24 4:17 PM Gross examination performed at [facility], [address] [place] [address] B. Hardware/Device/Fo reign Body Received fresh labeled as right breast tissue category consultant is a collapsed textured category consultant weighing 144.10 g and measuring 15.0 x 14.0 x 2.0 cm with the following inscription ALLOX2 SIENTRA FH 14 . No soft tissue is present. No sections are submitted. The specimen is reviewed with Dr. Kerns. Gross examination only. [facility] [place] [place] 08/30/24 1:20 PM Gross examination performed at [facility], [employer] [place] [address] 09/01/2024 2:20 PM EDT [facility] Clinical History Pre-op diagnosis: Cancer (HCC) [C80.1] History of reconstruction of both breasts [Z98.890] 09/01/2024 2:20 PM EDT [facility] Performing Lab Diagnostic interpretation performed at: [facility], [address] [facility], [place] [address] CLIA# [id number] Chief Juvenile Probation Officer: Derick Meadows MD 09/01/2024 2:20 PM EDT [facility] Disclaimer Laboratory Developed Test (LDT) Disclaimer: Performance characteristics of immunohistochemica l, immunofluorescent, and chromogenic in-situ hybridization tests have been determined by the performing laboratory within [facility] and Laboratory Medicine Department ([facility], [facility], [facility], [facility], [facility], [facility], or [facility]) in a manner consistent with CLIA requirements. One or more of these tests may not have been cleared or approved by the FDA. [facility] is regulated under CLIA as qualified to perform high-complexity testing. These tests are used for clinical purposes. These should not be regarded as investigational or for research. Positive and negative controls stain appropriately. 09/01/2024 2:20 PM EDT [facility] Tissue SOFT TISSUE SPECIMEN [...] [place] MD SURGICAL PATHOLOGY Final Resu lt [facility] [place] [id number], [place] * BREAST MARKERS (08/30/2024 12:40 PM EDT) ER status Low Positive (1%-10%) 5 2:59 PM EDT [facility] ER % staining 5 5 2:59 PM EDT [facility] Estrogen Receptor (Average Staining Intensity) Weak 5 2:59 PM EDT [facility] Estrogen Receptor Status of Internal Control Absent 5 2:59 PM EDT [facility] Estrogen Receptor External Control Present and Stained as Expected 5 2:59 PM EDT [facility] WY status Negative (less than 1%) 5 2:59 PM EDT [facility] WY % staining 0 5 2:59 PM EDT [facility] Progesterone Receptor (Average Staining Intensity) Not Applicable 5 2:59 PM EDT [facility] Progesterone Receptor Status of Internal Control Absent 5 2:59 PM EDT [facility] Progesterone Receptor External Control Present and Stained as Expected 5 2:59 PM EDT [facility] HER2 IHC Status Negative for HER2 Overexpression 5 2:59 PM EDT [facility] HER2 IHC Score 0 5 2:59 PM EDT [facility] Comment: HER2 Ultralow assessment [...] CH, OMelvin JA, Mary H, Deya HeardY, Mckinney Q, Elena C, Andreas L, Oliver J, Im SA, L vy C, Praveen W, Sera N, Fabio J, Rodrigo G, Gilma G; [id number] Trial Investigators. Trastuzumab Deruxtecan after Endocrine Therapy in Metastatic Breast Cancer. N Engl J Med. 2023Nov 14. doi: 10.1056/LEUWcg3165452. Epub ahead of print. PMID: 78401126. Amando Meyers J, Bill B, Azra A, John B, Mayco H, Yoshi E, Harpreet N, Pankaj Berry. Development and Validation of a HER2-Low Focused Immunohistochemical Scoring System With High-Interobserver Concordance: The [place] HER2-Low Breast Cancer Concordance Study. Mod Pathol. 2023;37(8):833678. doi: 10.1016/j.modpat.2023.952082. Epub 2023Aug 07. PMID: [id number]. Tumor Type Carcinoma 5 2:59 PM EDT [facility] Breast Tumor Grade Not Graded 5 2:59 PM EDT [facility] 5 2:59 PM EDT [facility] CCF Block ID A2 5 2:59 PM EDT [facility] Fixative Formalin, 10% Neutra l Buffered 5 2:59 PM EDT [facility] Cold Ischemia Time Not Provided 5 2:59 PM EDT [facility] Total Fixation Time Not Provided 5 2:59 PM EDT [facility] Latest ASCO/CAP guidelines for fixation met Indeterminate (See Comment) 5 2:59 PM EDT [facility] Was Specimen Decalcified No 5 2:59 PM EDT [facility] Interpretation Comment and Reference Range Reference Range for Hormone Receptors: Staining for WY of greater than or equal to 1% of the tumor cells is considered positive. Staining for ER of 1-10% of the tumor cells is considered low positive. Staining for ER of greater than 10% of the tumor cells is considered positive. Staining for ER or WY of less than 1% is considered negative. [...] to ER-negative cancers. 5 2:59 PM EDT [facility] Method Estrogen Receptor: Food and Drug Administration (FDA) cleared: [employer], [place], [place] Primary Antibody: SP1 Progesterone Receptor: FDA cleared: [employer], [place], [place] Primary Antibody: IE2 HER2 (ERBB2) by IHC: FDA cleared: [employer], [place], [place] Primary Antibody:4B5 The hormone receptor tests were performed and reported in accordance with the guidelines approved by the [place] Society of Clinical Oncologists and the College of Vincentian Pathologists. Micaela SOTO, et al. Estrogen and Progesterone Receptor Testing in Breast Cancer: [place] Society of Clinical Oncologists and the College of Vincentian Pathologists Guideline Update. Arch Pathol Lab Med. 2019;144(5):545-563. PMID: [id number]. The hormone receptor assays have been internally validated on decalcified tissues (for [facility] only). Estrogen and progesterone receptor results are valid if tissue was processed according to ASCO/CAP guidelines. Antibody and Detection System: Lytle's Pathway anti-HER2 rabbit monoclonal antibody (clone [id number]), Lytle Confirm anti-estrogen receptor rabbit monoclonal antibody (clone SP1) and Lytle anti-progesterone receptor rabbit monoclonal antibody (clone IE2) detected with the [employer] UltraView Univeral DAB Detection Kit (indirect biotin-free detection), [employer], [place], [place]. Control Slides: Cell line controls with high, equivocal, low, and negative HER2 protein expression, along with known positive control tissue and the patient's tissue, are evaluated for HER2 expression. The HER2 immunohistochemistry assay was developed, validated, scored, and reported in accordance with the guidelines approved by the [place] Society of Clinical Oncologists and the College of Vincentian Pathologists. Bacilio SIEGEL et al. Arch Pathol Lab Med. 2018;1379(9) The HER2 assay has not been validated on decalcified tissues. Given the possibility of false negative results on decalcified specimens, results should be interpreted with caution. 2:59 PM EDT [facility] Disclaimer Laboratory Developed Test (LDT) Disclaimer: Performance characteristics of immunohistochemical, immunofluorescent, and chromogenic in-situ hybridization tests have been determined by the performing laboratory within [facility]'s [facility] Medicine Department ([facility], [facility], [facility], [facility], [facility], [facility], or [facility]) in a manner consistent with CLIA requirements. One or more of these tests may not have been cleared or approved by the FDA. [employer] is regulated under CLIA as qualified to perform high-complexity testing. These tests are used for clinical purposes. These should not be regarded as investigational or for research. Positive and negative controls stain appropriately. 2:59 PM EDT [facility] Performing Lab Diagnostic interpretation performed at: [facility], [address] [place] [address], [place] [address] CLIA# [id number] Chief Juvenile Probation Officer: Derick Meadows MD Electronically signed out by: Tracie Hutchinson MD 2:59 PM EDT [facility] Tissue SOFT TISSUE SPECIMEN / Unknown 08/30/2024 12:40 PM EDT 09/04/2024 9:07 AM EDT us Leonidas Colorado MD SURGICAL PATHOLOGY Final Resu lt [facility] [address] [place] [address], [place] * Airway (08/30/2024 12:30 PM EDT) [...] Successful intubation technique: video laryngoscopy Devices used: [employer] Endotracheal tube insertion site: oral Blade: Bo [...] 08/27/2024 9:53 AM EDT IMPRESSION: See result Tunnel Miner: PSCB Transcribe Date/Time: Aug 27 2024 9:51A [...] limits for portable projection. Other: Soft tissue category consultant is identified in the RIGHT breast with adjacent surgical clips. There is scoliosis of the thoracolumbar spine. Procedure Note Provider, [facility] - 08/27/2024 * * *Final Report* * [...] limits for portable projection. Other: Soft tissue category consultant is identified in the RIGHT breast with adjacent surgical clips. There is scoliosis of the thoracolumbar spine. IMPRESSION IMPRESSION: See result Tunnel Miner: CARLOS Transcribe Date/Time: Aug 27 2024 9:51A [...] with vasogenic edema and local mass effect. Tunnel Miner: PSCWillis Transcribe Date/Time: Aug 26 2024 10:00P Dictated by : GEORGIANA CARMICHAEL MD This examination was interpreted and the report reviewed and electronically signed by: GEORGIANA CARMICHAEL MD on Aug 26 2024 10:02PM EST Narrative 08/26/2024 10:05 PM EDT * * *Final Report* * * DATE OF EXAM: Aug 26 2024 9:58PM [facility] [facility] - CT BRAIN WO/W IVCON / [...] soft tissues are unremarkable. Procedure Note Provider, [facility] - 08/26/2024 * * *Final Report* * * DATE OF EXAM: Aug 26 2024 9:58PM [facility] [place] 0007 - CT BRAIN WO/W IVCON / [...] with vasogenic edema and local mass effect. Tunnel Miner: CARLOS Transcribe Date/Time: Aug 26 2024 10:00P [...] [facility] Calculated P Golf 37 degrees [facility] Calculated R Golf 7 degrees [facility] Calculated T Golf 65 degrees [facility] 08/26/2024 6:20 PM EDT [facility] - 09/08/2024 1:41 PM EDT NORMAL SINUS RHYTHM WITH 1ST DEGREE AV BLOCK LOW VOLTAGE PRECORDIAL LEADS BORDERLINE ECG Confirmed by fellow SUDHA SPICER MD ([id number]) on 09/08/2024 11:22:04 AM Confirmed by MD TRICE, PhD, ISA ([id number]) on 09/08/2024 1:41:33 PM Narrative [facility] - 09/08/2024 1:41 PM EDT NAME : YASMIN JONES PID : [id number] : 1970 Gender : Female Race : ORD : [id number] Procedure Date : Aug 26 2024 18:20:39 Edit Date : Sep 08 2024 13:41:36 Diagnosis: NORMAL SINUS RHYTHM WITH 1ST DEGREE AV BLOCK LOW VOLTAGE PRECORDIAL LEADS BORDERLINE ECG Confirmed by fellow SUDHA SPICER MD ([id number]) on 09/08/2024 11:22:04 AM Confirmed by MD TRICE, PhD, ISA ([id number]) on 09/08/2024 1:41:33 PM Test Reason : Check QT Location : 170 : G70 G070-30 Overread By : MD TRICE, PhD,ISA Edited By : MD TRICE, PhD,ISA Referred By : PK BOSCH Acquired by : GEORGIANA BUNCH Dwayne Sahu DO EKG Final Result [facility] [address] [place] [address] from Last 3 Months Insurance [facility] MEDICAID [facility] Advance Directives * Full Code (Latest Code Status on File) Date Activated Date Inactivated Comments 08/26/2024 2:51 PM 09/01/2024 5:08 PM Question Answer Comments Full Code Order Discussed With: Patient and Surr ogate Decision Maker Surrogate Decision Maker Name: Jean Carlos Becker Surrogate Decision Maker Relationship: Spouse Care Teams Roll Panner Relationship Specialty Start Date End Date Amy Collier NP [address] [place] [address] PCP - General Family Medicine 09/27/24 Carolina Munguia APRN [address] [facility] [address] [place] [address] 12/04/23 Jessica Hope MD [address] [place] [address] Referring Hematology/Oncology 06/14/24 Shereen Smallwood PA-C [address] [facility] 280 [place] [address] [facility] Referring Orthopedics 06/15/24 [place] [address] [place] [address] Specialty Continuous Improvement Analyst Hematology/Oncology 07/31/24
--- OUTSIDE RECORDS SUMMARY | 2024-11-04 10:24 | XMS_ITS | Encounter Summary ---
Author Organization [facility] Address [address] [place] [address] Care Team Providers Care Distribution Associate Name Role Phone Randy Lu MD Primary Care Provider Encounter Details Date Type Department Care Team (Late Contact Info) Description 09/09/2023 Abstract [facility] [address] [address] (roll.to) [place] [address] Evan Thompson [address] [facility] [address] [place] [place], [place] [address] Social History Tobacco Use Types Packs/Day Years [...] 11/24/2024 9:30 AM EDT Office Visit [facility] [address] [place] [phone] Prince Jay DO [address] [place] [address] 06/12/2025 10:00 AM EDT Office Visit [facility] Suzanne [address] [place] [address] Evan Thompson, DO [address] [place] [address] documented as of this encounter Visit Diagnoses Not on filedocumented in this encounter Care Teams Distribution Associate Relationship Specialty Start Date End Date Randy Lu MD PCP - General Family Medicine 04/02/23 documented as of this encounter
--- OUTSIDE RECORDS SUMMARY | 2024-11-04 10:24 | XMS_ITS | Encounter Summary ---
Author Organization [facility] Address [id number] [address] [place] [address] Care Team Providers Care Inhalation Therapy Teacher Name Role Phone Amy oCllier COLLECTION COORDINATOR-STEEL SASH ERECTOR Primary Care Provider + Encounter Details Date Type Department Care Team (Late st Contact Info) Description 04/14/2023 Orders Only [facility] - Family Medicine [address] [place] [phone] Randy Lu, DO [address] [facility], [place] [address] Social History Tobacco Use Types Packs/Day Years [...] any clubs o r organizations such as adventist groups, unions, fraternal or athletic groups, or [...] Answer Date Recorded Total Score 0 03/07/2022 [facility] [place] of Occupat ional Health - Occupational Stress [...] and Reconstructive Surgery [address] [facility] [address] [facility] [place] [address] Marisela Davila COLLECTION COORDINATOR-STEEL SASH ERECTOR [address], [facility] [address] [facility] [place] [address] documented as of this encounter Visit Diagnoses Not on filedocumented in this encounter Additional Health Concerns Infection Onset Date Last Indicated Resolved Time ENGAGEMENT QUALITY CONSULTANT Comment:LT CHEST WALL TISSUE(08/12/24) 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
--- OUTSIDE RECORDS SUMMARY | 2024-11-04 10:24 | XMS_ITS | Encounter Summary ---
Author Organization [employer] [facility] [employer] Address [id number] [address] [place] [address] Care Team Providers Care Director Of Retention Name Role Phone Amy Collier PIPE ASSEMBLY WORKER-GRADE SCHOOL TEACHER Primary Care Provider + Encounter Details Date Type Department Care Team (Late st Contact Info) Description 10/15/2023 Orders Only [facility] [address] [facility] [address] [place] [address] Ref Prov, [place] [address] Social History Tobacco Use Types Packs/Day Years [...] Answer Date Recorded Total Score 0 03/07/2022 [facility] of Occupat ional Health - Occupational Stress [...] Reconstructive Surgery [address] [place] [address] Marisela Davila PIPE ASSEMBLY WORKER-GRADE SCHOOL TEACHER [address], [address] [place] [address] documented as of this encounter [...] Infection Onset Date Last Indicated Resolved Time COCOA MILL OPERATOR Comment:LT CHEST WALL TISSUE(08/12/24) 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
--- OUTSIDE RECORDS SUMMARY | 2024-11-04 10:24 | XMS_ITS | Encounter Summary ---
Author Organization [facility] Address [address] [place] [address] Care Team Providers Care Vocational Horticulture Instructor Name Role Phone Randy Lu MD Primary Care Provider [phone] Encounter Details Date Type Department Care Team (Late Contact Info) Description 07/29/2023 Abstract [facility] Suzanne [address] [address] [place] [address] Evan Thompson [address] [facility] [address] [place]ma[address] [place], [place] [address] Social History Tobacco Use Types Packs/Day Years [...] 11/24/2024 9:30 AM EDT Office Visit [facility] [address] [place] [phone] Prince Jay DO [address] [place] [address] 06/12/2025 10:00 AM EDT Office Visit [facility] Suzanne [facility] [address] [place] [address] Evan Thompson, DO [address] [place] [address] documented as of this encounter Visit Diagnoses Not on filedocumented in this encounter Care Teams Vocational Horticulture Instructor Relationship Specialty Start Date End Date Randy Lu MD PCP - General Family Medicine 04/02/23 documented as of this encounter
--- OUTSIDE RECORDS SUMMARY | 2024-11-04 10:24 | XMS_ITS | Encounter Summary ---
Author Organization [facility] Address [facility] [id number] [address] [place] [address] Care Team Providers Care Cream Hauler Name Role Phone Amy Collier SENIOR IT RECRUITER-BIT TAPPER Primary Care Provider + Encounter Details Date Type Department Care Team (Late st Contact Info) Description 04/03/2023 Orders Only [facility] - Family Medicine [address] [place] [phone] Amy Collier APRN-BIT TAPPER [address] [place] [address] Social History Tobacco Use Types Packs/Day Years [...] Total Score 0 03/07/2022 [facility] [place] of Occupat ional Health - Occupational Stress [...] and Reconstructive Surgery [address] [facility] [address] [place] [address] Marisela Davila APRN-CNP [address], [facility] [address] [place] [address] documented as of this encounter [...] Infection Onset Date Last Indicated Resolved Time AMBULATORY CARE COORDINATOR Comment:LT CHEST WALL TISSUE(08/12/24) 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
--- OUTSIDE RECORDS SUMMARY | 2024-11-04 10:24 | XMS_ITS | Encounter Summary ---
Author Organization [facility] Address [address] [place] [address] Care Team Providers Care Tonal Regulator Name Role Phone Randy Lu MD Primary Care Provider Encounter Details Date Type Department Care Team (Late Contact Info) Description 01/07/2024 Abstract [facility] Suzanne DE SOU[facility] [address] [place] [address] Evan Thompson [address] [facility] [address] [place], [place] [address] Social History Tobacco Use Types Packs/Day Years [...] 11/24/2024 9:30 AM EDT Office Visit [facility] [address] [place] [phone] Prince Jay DO [address] [place] [address] 06/12/2025 10:00 AM EDT Office Visit [facility] Suzanne [facility] [address]OU[facility] [address] [place] [address] Evan Thompson, DO [address] [place] [address] documented as of this encounter Visit Diagnoses Not on filedocumented in this encounter Care Teams Tonal Regulator Relationship Specialty Start Date End Date Randy Lu MD PCP - General Family Medicine 04/02/23 documented as of this encounter
--- OUTSIDE RECORDS SUMMARY | 2024-11-04 10:24 | XMS_ITS | Encounter Summary ---
Author Organization [facility] Address [id number] [address] [place] [address] Care Team Providers Care Mine Car Dispatcher Name Role Phone Amy Collier QUILL CLEANER-OUTSIDE INDUSTRIAL SALES REPRESENTATIVE Primary Care Provider + Encounter Details Date Type Department Care Team (Late st Contact Info) Description 03/26/2023 Orders Only [facility] - Family Medicine [address] [place] [address] Amy Collier APRN-OUTSIDE INDUSTRIAL SALES REPRESENTATIVE [address] [place] [address] Social History Tobacco Use Types Packs/Day Years [...] Score 0 03/07/2022 [facility] [place] of Occupat ional Health - Occupational Stress [...] [facility] [address] [place] [address] Marisela Davila APRN-CNP [address], [facility] 280 [facility] [place] [place] [address] documented as of this encounter [...] Infection Onset Date Last Indicated Resolved Time CARPET JACK Comment:LT CHEST WALL TISSUE(08/12/24) 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
--- OUTSIDE RECORDS SUMMARY | 2024-11-04 10:24 | XMS_ITS | Encounter Summary ---
Author Organization [facility] Address [address] [place] [address] Phone Care Team Providers Care Parts Technician Name Role Phone Randy Lu DO Primary Care Provider Encounter Details Date Type Department Care Team (Late st Contact Info) Description 09/20/2021 Orders Only [facility] [address] [place] [address] Conversion, Onbase Social History Tobacco Use Types [...] on filedocumented in this encounter Care Teams Parts Technician Relationship Specialty Start Date End Date Randy Lu DO PCP - General 07/21/22 documented as of this encounter
--- OUTSIDE RECORDS SUMMARY | 2024-11-04 10:24 | XMS_ITS | Encounter Summary ---
Author Organization [facility] Address [facility] [id number] [address] [place] [address] Care Team Providers Care Foreign Collection Clerk Name Role Phone Amy Collier FORCE VARIATION EQUIPMENT TENDER-QUALITY LAB TECHNICIAN Primary Care Provider + Encounter Details Date Type Department Care Team (Late st Contact Info) Description 03/23/2023 Orders Only [facility] - Family Medicine [address] [place] [address] Nat Javed CMA Abnormal mammogram [...] How often do you attend chur or yazidi services? More than 4 times [...] Do you need help finding a [facility] career center and/or a training program? 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
--- OUTSIDE RECORDS SUMMARY | 2024-11-04 10:24 | XMS_ITS | Encounter Summary ---
Author Organization [facility] Address [address] [place] [address] Care Team Providers Care Test Evaluator Name Role Phone Randy Lu MD Primary Care Provider Encounter Details Date Type Department Care Team (Late Contact Info) Description 11/16/2023 Abstract [facility] Suzanne DE SOUZA [address] [place] [address] Evan Thompson [address] [facility] [address]ma[address] [place], [place] [address] Social History Tobacco Use Types Packs/Day Years [...] 11/24/2024 9:30 AM EDT Office Visit [facility] [address] [place] [phone] Prince Jay DO [address] [place] [address] 06/12/2025 10:00 AM EDT Office Visit [facility] Suzanne [address] [place] [address] Evan Thompson, DO [address] [place] [address] documented as of this encounter Visit Diagnoses Not on filedocumented in this encounter Care Teams Test Evaluator Relationship Specialty Start Date End Date Randy Lu MD PCP - General Family Medicine 04/02/23 documented as of this encounter
--- OUTSIDE RECORDS SUMMARY | 2024-11-04 10:24 | XMS_ITS | Encounter Summary ---
Author Organization [employer] Address [facility] [id number] [address] [place] [address] Care Team Providers Care Mason Helper Name Role Phone Amy Collier MEDICAL SONOGRAPHER-ADDICTION TREATMENT COUNSELOR Primary Care Provider + Encounter Details Date Type Department Care Team (Late st Contact Info) Description 10/27/2023 Orders Only [facility] On[facility] [address] [facility] [address] [place] [address] Ref Prov, [place] [address] Social History Tobacco Use Types Packs/Day Years Used Date Smoking Tobacco: Never Smokeless Tobacco: Never Alcohol Use Standard Drinks/Week Comments Yes 0 (1 standard drink = 0.6 oz pur e alcohol) Socially [facility] Utilities Answer Date Recorded In the past 12 months has [employer] electric, gas, oil, or water company [...] Total Score 0 03/07/2022 [facility] of Occupat ional Health - Occupational Stress [...] [address] [facility] [address] [place] [address] Marisela Davila APRN-ADDICTION TREATMENT COUNSELOR [address], [facility] [address] [place] [address] documented as of this encounter Procedures Procedure Name Priority Date/Time Associated Diagnosis Comments MULTIPLE LABS Routine 10/27/2023 10:43 AM EDT documented in this encounter Results * Multiple labs (10/27/2023 10:43 AM EDT) us Not In System Ref Prov CT IMAGING Final Res ult MANUALLY TRANSCRIBED RESULTS documented in this encounter Visit Diagnoses Not on filedocumented in this encounter Additional Health Concerns Infection Onset Date Last Indicated Resolved Time CERAMIC CHEMIST Comment:LT CHEST WALL TISSUE(08/12/24) 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
--- OUTSIDE RECORDS SUMMARY | 2024-11-04 10:25 | XMS_ITS | Encounter Summary ---
Author Organization [facility] Address [id number] [address] [place] [address] Care Team Providers Care Nailhead Operator Name Role Phone Amy Collier WARP TRUCKER-ANALYST SALES Primary Care Provider + Encounter Details Date Type Department Care Team (Late st Contact Info) Description 05/13/2023 Orders Only [facility] - Family Medicine [address] [place] [address] External, Scanning Provider Social History [...] file Travel History Travel Start Travel End [place] 09/13/2024 10/26/2024 documented as of this encounter Plan of Treatment Upcoming Encounters Date Type Department Care Team (Late st Contact Info) Description 11/16/2024 1:30 PM EDT Office Visit [facility] [address] [place] [address] Marisela Davila APRN-ANALYST SALES [address] [place] [address] documented as of this encounter [...] Infection Onset Date Last Indicated Resolved Time PAPER INSERTER Comment:LT CHEST WALL TISSUE(08/12/24) 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
--- OUTSIDE RECORDS SUMMARY | 2024-11-04 10:25 | XMS_ITS ---
Author Organization [employer] Address [id number] [address] [place] [address] Care Team Providers Care Drug Enforcement Administration Agent Name Role Phone Amy Collier TIRE MAN-COMBATANT DIVER QUALIFIED Primary Care Provider + Active Problems Problem [...]
--- OUTSIDE RECORDS SUMMARY | 2024-11-04 10:25 | XMS_ITS | Encounter Summary ---
Author Organization [facility] Address [address] [place] [address] Care Team Providers Care Elevator Constructor Name Role Phone Randy Lu MD Primary Care Provider Encounter Details Date Type Department Care Team (Late st Contact Info) Description 2024 Abstract [facility] [address] [place] [address] Evan Thompson [address] [place], [place] [address] Social History Tobacco Use Types Packs/Day Years [...] 11/24/2024 9:30 AM EDT Office Visit [facility] [address] [place] [address] Prince Jay DO [address] [place] [address] 06/12/2025 10:00 AM EDT Office Visit [facility] [address] [place] [address] Evan Thompson DO [address] [facility] [place] [address] documented as of this encounter Visit Diagnoses Not on filedocumented in this encounter Care Teams Elevator Constructor Relationship Specialty Start Date End Date Randy Lu MD PCP - General Family Medicine 04/02/23 documented as of this encounter
--- OUTSIDE RECORDS SUMMARY | 2024-11-04 10:25 | XMS_ITS | Encounter Summary ---
Author Organization [employer] Address [id number] [address] [place] [address] Care Team Providers Care Tread Builder Name Role Phone Amy Collier JOURNEYMAN SHEET METAL WORKER-WIRE FENCE ERECTOR Primary Care Provider + Encounter Details Date Type Department Care Team (Late st Contact Info) Description 04/07/2024 Telephone [facility] [address] [facility] [address] [place] [address] Viviane Lopez CMA Social History Tobacco Use Types Packs/Day Years Used Date Smoking Tobacco: Never Passive Smoke Exposure: Past Smokeless Tobacco: Never Alcohol Use Standard Drinks/Week Comments Yes 0 (1 standard drink = 0.6 oz pur e alcohol) Socially [facility] Utilities Answer Date Recorded In the past 12 months has [employer] electric, gas, oil, or water [employer] threatened to shut off services in your [...] Answer Date Recorded Total Score 2 03/30/2024 [facility] Transfer of Occupat ional Health - Occupational Stress [...] [address] [facility] [address] [place] [address] Marisela Davila APRN-CNP [address] [place] [address] documented as of this encounter Visit Diagnoses Not on filedocumented in this encounter Additional Health Concerns Infection Onset Date Last Indicated Resolved Time FLOOR INSTALLATION MECHANIC Comment:LT CHEST WALL TISSUE(08/12/24) 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
--- OUTSIDE RECORDS SUMMARY | 2024-11-04 10:25 | XMS_ITS | Clinical Summary ---
Author Organization [employer] Address [id number] [address] [place] [address] Care Team Providers Care Purchaser Name Role Phone Amy Collier REAL ESTATE DIRECTOR-WAXING MACHINE OPERATOR Primary Care Provider + Allergies Active Allergy [...] Cancer Staging:Clinical:Stage IIIC(cT2, cN3, cM0, G3, ER+, CO-, HER2-) - Signed by Christy He MD [...] Surgical Oncology [address] [place] [address] Shanice Johnson RN 10/26/2024 1:30 PM EDT [facility] [address] [place] [address] Marisela Davila, REAL ESTATE DIRECTOR-WAXING MACHINE OPERATOR Breast wound, left, sequela (Primary Dx); Encounter for postoperative care; Complicated wound infection 10/26/2024 8:30 AM EDT Telephone Visit [facility] A Department of [facility] [address] [place] [address] Raymond Sepulveda MD 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 [address] [place] [address] Jhon Rosado MD DEBRIDEMENT BREAST 10/12/2024 12:45 PM EDT - 10/12/2024 4:31 PM EDT Hospital Encounter [facility] [address] [place] [address] Jhon Rosado MD Complicated wound infection (Primary Dx); Breast wound, left, sequela Discharge Disposition: Home 10/11/2024 Travel 2024 4:00 PM EDT Ancillary Procedure [facility] External [facility] Storage [address] [place] [address] Pain 2024 2:15 PM EDT Support Visit [facility] On [address] [address] 2024 Orders Only [facility] - Family Medicine [address] [place] [address] Amy Collier, REAL ESTATE DIRECTOR-WAXING MACHINE OPERATOR 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 ([facility]-HCC) (Primary Dx) 10/07/2024 Telephone [facility] [address] [place] [address] Jhon Rosado MD 10/05/2024 1:30 PM EDT Office Visit [facility] [address] [place] [address] Marisela Davila, REAL ESTATE DIRECTOR-WAXING MACHINE OPERATOR Breast wound, left, sequela (Primary Dx); Infection of deep incisional surgical site after procedure, subsequent encounter 10/05/2024 Travel 09/23/2024 Orders Only [facility] - Family Medicine [address] [place] [address] Amy Collier, REAL ESTATE DIRECTOR-WAXING MACHINE OPERATOR Reactive depression (Primary Dx); Anxiety 09/22/2024 3:15 PM EDT Office Visit [facility] [address] [place] [address] Jhon Rosado MD 09/22/2024 Travel 09/20/2024 Orders Only [facility] - Family Medicine [address] [place] [address] Amy Collier, REAL ESTATE DIRECTOR-WAXING MACHINE OPERATOR 09/20/2024 Telephone [facility] - Family Medicine [address] [place] [address] Susan Horton CMA 09/19/2024 Refill [facility] - Family Medicine [address] [place] [address] Amy Collier, REAL ESTATE DIRECTOR-WAXING MACHINE OPERATOR 09/16/2024 Telephone [facility] [address] [place] [address] Irvin Apodaca MA 09/08/2024 9:45 AM EDT Office Visit [facility] [address] [place] [address] Shereen Smallwood PA-C Breast wound, left, sequela (Primary Dx); Infection of deep incisional surgical site after procedure, subsequent encounter; Malignant neoplasm of lower-inner quadrant of right breast of female, estrogen receptor positive (CMS-HCC); Mycobacterium abscessus infection; S/P breast reconstruction, bilateral 09/08/2024 Travel 09/05/2024 Telephone [facility] [address] [place] [address] Dee Dee Buck RN 08/31/2024 Telephone [facility] [address] [place] [address] Jhon Rosado MD 08/25/2024 Orders Only [facility] - Family Medicine [address] [place] [address] Amy Collier, REAL ESTATE DIRECTOR-WAXING MACHINE OPERATOR 08/24/2024 Telephone [facility] - Family Medicine [address] [place] [address] Kodi Monteiro, [facility] 08/22/2024 Telephone [facility] [address] [place] [address] Viviane Lopez [facility] 08/18/2024 3:30 PM EDT Office Visit [facility] [address] [place] [address] Shereen Smallwood, PA-C Breast wound, left, sequela (Primary Dx); Complicated wound infection 08/18/2024 Travel 08/12/2024 10:21 AM EDT Anesthesia Event [facility] Surgery [address] [place] [address] [facility]ibhav [place] [facility] 08/12/2024 9:10 AM EDT - 08/12/2024 10:40 AM EDT Surgery [facility] Surgery [address] [place] [address] Jhno Rosado MD DEBRIDEMENT LEFT CHEST WALL WOUND 08/12/2024 6:02 AM EDT - 08/12/2024 12:17 PM EDT Hospital Encounter [facility] [address] [place] [address] Jhon Rosado MD Discharge Disposition: Home 08/12/2024 Telephone [facility] [address] [place] [address] Jhon Rosado MD 08/10/2024 3:30 PM EDT Office Visit [facility] - Family Medicine [address] [facility] [address] Dhruv Ortiz DO Mycobacterium abscessus infection (Primary Dx); Malignant neoplasm of lower-inner quadrant of right breast of female, estrogen receptor positive ([facility]-HCC) 08/10/2024 10:00 AM EDT Support [facility] On [address] [address] 08/09/2024 Telephone [facility] [address] [place] [address] Jhon Rosado MD 08/08/2024 9:00 AM EDT Office Visit [facility] [address] [place] [address] Shereen Smallwood PA-C Breast wound, left, sequela (Primary Dx); Complicated wound infection 08/08/2024 Travel 08/04/2024 Orders Only [facility] [address] [place] [address] Shereen Smallwood PA-C from Last 3 Months [...] drink = 0.6 oz pur e alcohol) [facility] [employer] Answer Date Recorded In the past 12 months has [employer], gas, oil, or water [employer] threatened to shut off services in your [...] Answer Date Recorded Total Score 0 08/10/2024 [facility] of Occupat ional Health [...] Travel Start Travel End [place] 09/13/2024 10/26/2024 Last Filed Vital Signs Vital [...] Plastic and Reconstructive Surgery [address] [facility] [address] [place] [address] Marisela Davila, REAL ESTATE DIRECTOR-[facility] [address] [place] [address] Health Maintenance Due Date Last [...] patient will return home at discharge/follow up [facility] Wound care clinic Medical Devices Implanted Type Area Journalism Instructor Device Identifier Shelf Expiration Date Model / Serial / Lot Building Trades Instructor Tiss [id number] Brst [id number] Txtr Intgr Port Allox2 - [id number] - [id number] Implanted:Qty: 1 on 10/28/2023 by Jhon Rosado MD at [facility] Other Implant Left: Breast [employer] 11/11/2025 ALLOX2-FH 14E / [id number] / NA Building Trades Instructor Tiss [id number] Brst 480-575cc Txtr Intgr Port Allox2 - [id number] - [id number] Implanted:Qty: 1 on 10/28/2023 by Christy He MD at [facility] Other Implant Right: Breast [employer] 11/20/2025 ALLOX2-FH 14E / [id number] / NA Procedures Procedure Name Priority [...] GROWTH 3 DAYS 10/16/2024 6:42 AM EDT [facility] GRAM STAIN 0 White Blood Cells/LPF 10/16/2024 6:42 AM EDT [facility] GRAM STAIN 0 Squamous Epithelial Cells/LPF 10/16/2024 6:42 AM EDT [facility] GRAM STAIN No organisms seen 10/16/2024 6:42 AM EDT [facility] Tissue (Chest Wall) 10/12/2024 3:13 PM EDT 10/12/2024 3:21 PM EDT Comment:Pre-op diagnosis: BREAST WOUND LEFT us Jhon Rosado MD MICROBIOLOGY - GENERA L ORDERABLES Final Result [facility] [address] [place] [address], [place] [phone] * Anaerobic culture (10/12/2024 3:13 PM EDT) Only the most recent of2 resultswithin the time period is included. CULTURE RESULTS NO GROWTH 5 DAYS 10/17/2024 8:55 AM EDT [facility] Tissue (Chest Wall) 10/12/2024 3:13 PM EDT 10/12/2024 3:21 PM EDT Comment:Pre-op diagnosis: BREAST WOUND LEFT us Jhon Rosado MD MICROBIOLOGY - GENERA L ORDERABLES Final Result Performing Organization Address City/[facility]/ZIP Co de Phone Number [facility] [address] [place] [address], [place] [phone] * NON [facility] WHOLE BODY (2024 4:00 PM EDT) us Scanning Provider External IMG PET ORDERABLES Fi nal Result * (ABNORMAL) Fungal culture includes fungal smear (08/12/2024 10:40 AM EDT) CULTURE RESULTS Mycobacterium abscessus(A) 09/07/2024 10:42 AM EDT [facility] FUNGAL SMEAR No fungal elements seen 09/07/2024 10:42 AM EDT [facility] FUNGAL SMEAR On Direct Smear 025 10:42 AM EDT [facility] Tissue (Chest Wall, Left) 08/12/2024 10:40 AM EDT 08/12/2024 11:31 AM EDT Comment:Pre-op diagnosis: LEFT AXILLA WOUND Narrative [facility] - 09/07/2024 10:42 AM EDT Contact microbiology if further workup is required for M.abscessus. No fungus isolated after 4 weeks. us Jhon Rosado MD MICROBIOLOGY - GENERA L ORDERABLES Final Result [facility] [address] [place] [address], [place] [phone] * Send Out Test (08/11/2024 3:03 PM EDT) TEST NAME 08/14/2024 7:50 AM EDT GENERIC RESULTING AGENCY SPECIMEN 08/14/2024 7:50 AM EDT GENERIC RESULTING AGENCY SENT TO 08/14/2024 7:50 AM EDT GENERIC RESULTING AGENCY TEST RESULT 08/14/2024 7:50 AM EDT GENERIC RESULTING AGENCY Tissue Left breast structure / Unknown 08/11/2024 3:03 PM EDT 08/11/2024 6:05 PM EDT us Herman York DO LAB ORDERABLES Final Result GENERIC RESULTING AGENCY * External Lab Orders / Results (08/08/2024 3:30 PM EDT) us Aurelia Oneill MD LAB ORDERABLES Final Result from Last 3 Months Additional Health Concerns Infection Onset Date 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
--- OUTSIDE RECORDS SUMMARY | 2024-11-04 10:25 | XMS_ITS | Encounter Summary ---
Author Organization [facility] Address [facility] [place] [address] Care Team Providers Care Specialty Therapist Name Role Phone Nilda Carolina RICHTER Unavailable [phone] Jessica Hope MD Unavailable [phone] Lynda Manuel NET SOLUTIONS ARCHITECT Primary Care Provider [phone] Shereen Smallwood PA-C Unavailable [phone] Radha Martinez RN Unavailable Amy Collier BOILERMAKER ASSEMBLY AND ERECTION Primary Care Provider [phone] Source Comments In the event this information is protected by the Federal Confidentiality of Alcohol and Drug AbusePatient Records regulations: The Federal rules restrict any use of the information to criminally investigate or prosecute any alcohol or drug abuse patient.[facility] Encounter Details Date Type Department Care Team (Late st Contact Info) Description 09/01/2024 Cure Form [facility] [address] [place] [id number] Carlos Mccain DO, PhD [address] [facility] [address] [place] [address] Social History Tobacco Use Types Packs/Day Years Used Date Smoking Tobacco: Never Passive Smoke Exposure: Never Smokeless Tobacco: Never Alcohol Use Standard Drinks/Week Comments Not Currently 0 (1 standard drink = 0.6 oz pur e alcohol) Occasional wine [facility] Utilities Answer Date Recorded In the [...] were you homeless or living in a usp (including now)? No 08/29/2024 Area Deprivation Index Answer Date Milton rded National Score (1-100), lower number is lower ri sk 82 07/21/2024 State Score (1-10), lower number is lower risk 7 07/21/2024 Data from: https://www.neighborhoodatlas.medicine.[facility].edu/. Last address used for calculation [address] 07/21/2024 Comments Unknown Sex [...] Appointment [facility] Radiology [place] [address] [place] [address] With Perfusion 11/29/2024 1:00 PM EDT Office Visit [facility] [address] [place] [address] Anitra Walters MD [address] [place] [address] Diagnostics, Eye Tech And [address] [facility] [address] [place] [address] Cataract Eval 12/01/2024 2:[address] [facility] [address] [place] [address] Carlos Mccain DO, PhD [address] [facility] [address] [place], [place] [id number] Established patient Visit with Dr. Mccain for MRI review and follow up documented as of this encounter Visit Diagnoses Not on filedocumented in this encounter Care Teams Specialty Therapist Relationship Specialty Start Date End Date Lynda Manuel CNP [address] [place] [address] PCP - General Family Medicine 06/14/24 09/26/24 Amy Collier, MONICA [address] [place] [address] PCP - General Family Medicine 09/27/24 Carolina Munguia APRN [address] [facility] [address] [place] [address] 12/04/23 Jessica Hope MD [address] [place] [address] Referring Hematology/Oncology 06/14/24 Shereen Smallwood PA-C [address] [address] [facility] Referring Orthopedics 06/15/24 [place] [address] [place] [id number] Specialty Solar Sales Ambassador Hematology/Oncology 07/31/24 documented as of this encounter
--- OUTSIDE RECORDS SUMMARY | 2024-11-04 10:25 | XMS_ITS | Encounter Summary ---
Author Organization [employer] Address [id number] [address] [place] [address] Care Team Providers Care Trailer Chief Name Role Phone Amy Collier PRINCIPAL STATISTICAL PROGRAMMER-GAS METER REPAIRER Primary Care Provider + Encounter Details Date Type Department Care Team (Late st Contact Info) Description 08/24/2024 Telephone [facility] - Family Medicine [address] [place] [address] Kodi Monteiro CMA Social History Tobacco Use Types Packs/Day Years Used Date Smoking Tobacco: Never Passive Smoke Exposure: Past Smokeless Tobacco: Never Alcohol Use Standard Drinks/Week Comments Not Currently 0 (1 standard drink = 0.6 oz pur e alcohol) [facility] Utilities Answer Date Recorded In the past 12 months has [employer] electric, gas, oil, or water company threatened [...] Answer Date Recorded Total Score 0 08/10/2024 [facility] of Occupat ional Health - Occupational Stress [...] AM EDT Dr No Urena Pharmacist at [facility] called and would like to have a discussion about this pt. Her Lab results indicate some medications need to be addressed. 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
--- OUTSIDE RECORDS SUMMARY | 2024-11-04 10:25 | XMS_ITS | Encounter Summary ---
Author Organization [facility] Address [facility] [place]-[id number] [address] [place] [address] Care Team Providers Care Secretary Administrative Assistant Name Role Phone Amy Collier TURF AND GROUNDS SUPERVISOR-WATERSHED COORDINATOR Primary Care Provider + Encounter Details Date Type Department Care Team (Late st Contact Info) Description 08/18/2022 Orders Only [facility] Internal Medicine - Family Medicine [address] [place] [address] External, Scanning Provider Social History [...] help finding a [facility] system career center and/or a training program? No [...] Reconstructive Surgery [address] [place] [address] Marisela Davila APRN-WATERSHED COORDINATOR [address] [place] [address] documented as of this encounter Procedures Procedure Name Priority Date/Time Associated Diagnosis Comments MULTIPLE LABS Routine 08/15/2022 documented in this encounter Results * Multiple labs (08/15/2022) us Scanning Provider External RI IMAGING Final Result MANUALLY TRANSCRIBED RESULTS documented in this encounter Visit Diagnoses Not on filedocumented in this encounter Additional Health Concerns Infection Onset Date Last Indicated Resolved Time 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
--- OUTSIDE RECORDS SUMMARY | 2024-11-04 10:25 | XMS_ITS | Encounter Summary ---
Author Organization [facility] Address [facility] [id number] [address] [place] [address] Care Team Providers Care Solution Analyst Name Role Phone Amy Collier GARAGE DOOR SERVICE TECHNICIAN-PHOTO MASK CLEANER Primary Care Provider + Encounter Details Date Type Department Care Team (Late st Contact Info) Description 04/27/2023 Orders Only [facility] Internal Medicine - Family Medicine [address] [place] [address] External, Scanning Provider Social History [...] How often do you attend chur or episcopalian services? 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
--- OUTSIDE RECORDS SUMMARY | 2024-11-04 10:25 | XMS_ITS | Encounter Summary ---
Author Organization [facility] Address [facility] [place]-[id number] [address] [place] [address] Care Team Providers Care Magician/Illusionist Name Role Phone Amy Collier MAGNETIC TAPE TYPEWRITER OPERATOR-ALLERGIST IMMUNOLOGIST Primary Care Provider + Encounter Details Date Type Department Care Team (Late st Contact Info) Description 03/10/2023 Orders Only [facility] Internal Medicine - Family Medicine [address] [place] [address] External, Scanning Provider Social History [...] How often do you attend chur or rastafarian services? 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
--- OUTSIDE RECORDS SUMMARY | 2024-11-04 10:25 | XMS_ITS | Encounter Summary ---
Author Organization [facility] tem Address [facility] [place]-[id number] [address] [place] [address] Care Team Providers Care Risk Control Director Name Role Phone Amy Collier FACING BASTER-MARINE SERVICE MANAGER Primary Care Provider + Encounter Details Date Type Department Care Team (Late st Contact Info) Description 04/29/2024 Orders Only [facility] - 8 Med-Surg/Ortho [address] [place] [address] Lynda Morillo RN Social History Tobacco Use Types Packs/Day Years Used Date Smoking Tobacco: Never Passive Smoke Exposure: Past Smokeless Tobacco: Never Alcohol Use Standard Drinks/Week Comments Yes 0 (1 standard drink = 0.6 oz pur e alcohol) Socially [employer] Utilities Answer Date Recorded In the past [...] Answer Date Recorded Total Score 2 03/30/2024 [facility] [place] of Occupat ional Health - Occupational Stress [...] Recorded Do you need help finding a [facility] career [facility] and/or a training [...] Reconstructive Surgery [address] [place] [address] Marisela Davila, FACING BASTER-MARINE SERVICE MANAGER [address] [facility] 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
--- OUTSIDE RECORDS SUMMARY | 2024-11-04 10:25 | XMS_ITS | Encounter Summary ---
Author Organization [facility] Address [facility] [place] [address] Care Team Providers Care Art Therapy Specialist Name Role Phone Carolina Munguia APRN Unavailable [phone] Jessica Hope MD Unavailable [phone] Lynda Manuel ANIMAL CARE SERVICE WORKER Primary Care Provider [phone] Shereen Smallwood PA-C Unavailable [phone] Radha Martinez RN Unavailable Amy Collier NP Primary Care Provider [phone] Source Comments In the event this information is protected by the Federal Confidentiality of Alcohol and Drug AbusePatient Records regulations: The Federal rules restrict any use of the information to criminally investigate or prosecute any alcohol or drug abuse patient.[facility] Reason for Referral * MRI/CT (Routine) - Authorized Specialty Diagnoses / Procedures Referred By Jose olmedo Referred To Contact MR IMAGING Diagnoses Secondary malignant neoplasm of brain (HCC) Procedures MRI BRAIN WO/W IVCON MRI BRAIN BRAIN STEM W/O W/CONTRAST MATERIAL Carlos Mccain DO, PhD [address] [address] Phone: tel: fax: [place] [address] Referral ID Status Reason Start Date Expiration Date Visits Requested Visits Authorized [id number] Authorized Auto-Generat ed Referral 11/01/2024 12/16/2024 1 1 * MRI/CT (Routine) - Closed Specialty Diagnoses / Procedures Referred By Jose olmedo Referred To Contact MR IMAGING Diagnoses Secondary malignant neoplasm of brain (HCC) Procedures MRI BRAIN LOCALIZATION W IVCON MAGNETIC RESONANCE ELASTOGRAPHY Carlos Mccain DO, PhD [address] [place] [address] Phone: tel: fax: [place] [phone] Referral ID Status Reason Start Date Expiration Date V isits Requested Visits Authorized [id number] Closed Auto-Generat ed Referral Patient Cleared - Admin/Chairm an/Director advise to proceed or did not respond 10/07/2024 10/07/2024 1 1 * MRI/CT (Routine) - Closed Specialty Diagnoses / Procedures Referred By Jose olmedo Referred To Contact CT IMAGING Diagnoses Secondary malignant neoplasm of brain (HCC) Procedures CT BRAIN STEREOLOCAL WO IVCON CT GUIDANCE STEREOTACTIC LOCALIZATION Carlos Mccain DO, PhD [address] [place] [address] Phone: tel: fax: [place] [address] Referral ID Status Reason Start Date Expiration Date V isits Requested Visits Authorized [id number] Closed Auto-Generate d Referral 10/07/2024 03/01/2025 1 1 Encounter Details Date Type Department Care Team (Late st Contact Info) Description 09/26/2024 Cure Form [facility] [address] [id number] Carlos Mccain DO, PhD [address] [place] [address] Secondary malignant neoplasm of brain (HCC) (Primary Dx) Social History Tobacco Use Types Packs/Day Years Used Date Smoking Tobacco: Never Passive Smoke Exposure: Never Smokeless Tobacco: Never Alcohol Use Standard Drinks/Week Comments Not Currently 0 (1 standard drink = 0.6 oz pur e alcohol) Occasional wine [facility] Utilities Answer Date Recorded In the past 12 months has th e [employer] Law, gas, oil, or water company threatened to [...] any time in the past 12 m [facility], were you homeless or living in a mcfp (including now)? No 08/29/2024 Area Deprivation Index Answer Date [place] rded National Score (1-100), lower number is lower ri sk 82 07/21/2024 State Score (1-10), lower number is lower risk 7 07/21/2024 Data from: https://www.neighborhoodatlas.medicine.[facility].edu/. Last address used for calculation [address] [...] Info) Description 11/29/2024 10:20 AM EDT Appointment [facility] Radiology MRI [address] [place] [address] With Perfusion 11/29/2024 1:00 PM EDT Office Visit [facility] Ophthalmology [address] [place] [address] Anitra Walters MD [address] [place] [address] Diagnostics, Eye Tech And [address] [facility] [address] [place] [address] Cataract Eval 12/01/2024 2:00 PM EDT [facility] [address] [place] [address] Carlos Mccain DO, PhD [address] [facility] [address] [place] [address] Established patient Visit with Dr. Mccain for [...] IMPRESSION: Examination performed for preprocedural planning purposes. Integration Analyst: CARLOS Transcribe Date/Time: Oct 07 2024 8:54A [...] this is for gk planning purposes. - [id number] - - - - TECHNIQUE: CT head [...] or retention cysts in both maxillary antra. Insolvency Consultant (topogram) images: No additional findings. Procedure Note Provider, [facility] [place] - 10/07/2024 * * *Final Report* * [...] this is for gk planning purposes. - [id number] - - - - TECHNIQUE: CT head [...] or retention cysts in both maxillary antra. Insolvency Consultant (topogram) images: No additional findings. IMPRESSION IMPRESSION: Examination performed for preprocedural planning purposes. Integration Analyst: CARLOS Transcribe Date/Time: Oct 07 2024 8:54A [...] and left inferior frontal lesion from 09/07/2024. Integration Analyst: CARLOS Transcribe Date/Time: Oct 07 2024 8:56A [...] this is for gk planning purposes - [id number] - - - - TECHNIQUE: MRI brain [...] Basal cisterns are clear. Procedure Note Provider, [facility] - 10/07/2024 * * *Final Report* [...] this is for gk planning purposes - [id number] - - - - TECHNIQUE: MRI brain [...] and left inferior frontal lesion from 09/07/2024. Integration Analyst: CARLOS Transcribe Date/Time: Oct 07 2024 8:56A [...] cord documented in this encounter Care Teams Art Therapy Specialist Relationship Specialty Start Date End Date Lynda Manuel CNP [address] [place] [address] PCP - General Family Medicine 06/14/24 09/26/24 Amy Collier NP [address] [place] [address] PCP - General Family Medicine 09/27/24 Carolina Munguia APRN [address] [facility] [address] [facility] [place] [address] 12/04/23 Jessica Hope MD [address] [place] [address] Referring Hematology/Oncology 06/14/24 Shereen Smallwood PA-C [address] [facility] [address] [facility] [place] [address] [facility] Referring Orthopedics 06/15/24 [place] [address] [address] [place] [address] [id number] Specialty System Consultant Hematology/Oncology 07/31/24 documented as of this encounter
--- OUTSIDE RECORDS SUMMARY | 2024-11-04 10:25 | XMS_ITS | Encounter Summary ---
Author Organization [employer] Sys tem Address [facility]-[id number] [address] [place] [address] Care Team Providers Care Monument Mason Name Role Phone Amy Collier SUPERVISOR METAL CANS-SURGICAL ELASTIC KNITTER HAND FRAME Primary Care Provider + Reason for Visit * Reason Comments Med Refill Encounter Details Date Type Department Care Team (Late st Contact Info) Description 06/04/2022 Refill [facility] Internal Medicine - Family Medicine [address] [address] Lynda Manuel, SUPERVISOR METAL CANS-LENS EXAMINER [address] [place] [address] Social History Tobacco Use Types Packs/Day Years [...] Answer Date Recorded Total Score 0 03/07/2022 [facility] [place] of Occupat ional Health - Occupational [...] Reconstructive Surgery [address] [place] [address] Marisela Davila, SUPERVISOR METAL CANS-SURGICAL ELASTIC KNITTER HAND FRAME [address] [place] [address] documented as of this encounter Visit Diagnoses Not on filedocumented in this encounter Additional Health Concerns Infection Onset Date Last Indicated Resolved Time HEALTH CARE COORDINATOR Comment:LT CHEST WALL TISSUE(08/12/24) 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
--- OUTSIDE RECORDS SUMMARY | 2024-11-04 10:25 | XMS_ITS | Encounter Summary ---
Author Organization [facility] Address [facility] [place] [address] Care Team Providers Care Firer Diesel Locomotive Name Role Phone Carolina Munguia APRN Unavailable [phone] Jessica Hope MD Unavailable [phone] Shereen Smallwood PA-C Unavailable [phone] Radha Martinez RN Unavailable Amy Collier NP Primary Care Provider [phone] Source Comments In the event this information is protected by the Federal Confidentiality of Alcohol and Drug AbusePatient Records regulations: The Federal rules restrict any use of the information to criminally investigate or prosecute any alcohol or drug abuse patient.[facility] Reason for Visit * Reason Comments Patient Question Encounter Details Date Type Department Care Team (Late st Contact Info) Description 10/04/2024 Telephone [facility] [address] [place] [id number] Carlos Mccain DO, PhD [address] [facility] [address] [place] [address] Patient Question Social History Tobacco [...] any time in the past 12 m [facility], were you homeless or living in a chcf (including now)? No 08/29/2024 Area Deprivation Index Answer Date [place] rded National Score (1-100), lower number is lower ri sk 82 07/21/2024 State Score (1-10), lower number is lower risk 7 07/21/2024 Data from: https://www.neighborhoodatlas.medicine.[facility].edu/. Last address used for calculation [address] [...] AM EDT Appointment [facility] Radiology [place] [address] [place] [address] With Perfusion 11/29/2024 1:00 PM EDT Office Visit [facility] Ophthalmology [address] [place] [address] Anitra Walters MD [address] [place] [address] Diagnostics, Eye Tech And [address] [address] Cataract Eval 12/01/2024 2:00 PM EDT [facility] [address] [place] [address] Carlos Mccain DO, PhD [address] [facility] [address] [place], [place] [id number] Established patient Visit with Dr. Mccain for MRI review and follow up documented as of this encounter Visit Diagnoses Not on filedocumented in this encounter Care Teams Firer Diesel Locomotive Relationship Specialty Start Date End Date Amy Collier NP [address] [place] [address] PCP - General Family Medicine 09/27/24 Carolina Munguia APRN [address] [facility] [address] [facility] [place] [address] 12/04/23 Jessica Hope MD [address] [place] [address] Referring Hematology/Oncology 06/14/24 Shereen Smallwood PA-C [address] [address] [facility] Referring Orthopedics 06/15/24 [place] [address] [place] [address] Specialty Research Hydraulic Engineer Hematology/Oncology 07/31/24 documented as of this encounter
--- OUTSIDE RECORDS SUMMARY | 2024-11-04 10:25 | XMS_ITS | Encounter Summary ---
Author Organization [facility] Address [facility]-[id number] [address] [place] [address] Care Team Providers Care Business Applications Manager Name Role Phone Amy Collier FIBREGLASS LAMINATOR-SALES EFFECTIVENESS MANAGER Primary Care Provider + Encounter Details Date Type Department Care Team (Late st Contact Info) Description 04/23/2023 Orders Only [facility] Internal [facility] - Family Medicine [address] [place] [address] External, Scanning Provider Social History [...] Plastic and Reconstructive Surgery [address] [facility] [address] [place] [address] Marisela Davila APRN-SALES EFFECTIVENESS MANAGER [address] [place] [address] documented as of this encounter [...] Infection Onset Date Last Indicated Resolved Time MDM DEVELOPER Comment:LT CHEST WALL TISSUE(08/12/24) 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
--- OUTSIDE RECORDS SUMMARY | 2024-11-04 10:25 | XMS_ITS | Encounter Summary ---
Author Organization [employer] Sys tem Address [facility]-[id number] [address] [place] [address] Care Team Providers Care Sheriff'S Detective Name Role Phone Amy Collier POISON INFORMATION SPECIALIST-STATOR WINDER Primary Care Provider + Encounter Details Date Type Department Care Team (Late st Contact Info) Description 03/10/2023 [facility]phone [facility] [address] [place] [address] Nat Javed CMA Social History [...] How often do you attend chur or jewish services? More than 4 times [...] encounter Miscellaneous Notes * Telephone Encounter - Nta Javed CMA - 03/10/2023 8:27 AM EST Patient called for her Mammogram result. She said it was abnormal and wanted to know what to do from here. I called and got the results. * Telephone Encounter - AMEENA Garcia - 03/10/2023 8:27 AM EST I sent diagnostic mammogram and US right breast to [facility] - she can call to get that set up today. Herresult was cut off of the right breast but from what I can see they found some lymph enlargement and mass to right breast. 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
--- OUTSIDE RECORDS SUMMARY | 2024-11-04 10:25 | XMS_ITS | Encounter Summary ---
Author Organization [facility] Address [address] [place] [address] Care Team Providers Care Clinical Application Specialist Name Role Phone Carolina Munguia APRN Unavailable [phone] Jessica Hope MD Unavailable [phone] Lynda Manuel SCRUB WHEEL OPERATOR Primary Care Provider [phone] Shereen Smallwood PA-C Unavailable [phone] Radha Martinez RN Unavailable Amy Collier IT SPECIALIST Primary Care Provider [phone] Source Comments In the event this information is protected by the Federal Confidentiality of Alcohol and Drug AbusePatient Records regulations: The Federal rules restrict any use of the information to criminally investigate or prosecute any alcohol or drug abuse patient.[facility] Encounter Details Date Type Department Care Team (Late st Contact Info) Description 09/05/2024 [place] [address] Provider, Ccf Questionnaire Submission Social History Tobacco Use Types Packs/Day Years Used Date Smoking Tobacco: Never Passive Smoke Exposure: Never Smokeless Tobacco: Never Alcohol Use Standard Drinks/Week Comments Not Currently 0 (1 standard drink = 0.6 oz pur e alcohol) Occasional wine [facility] Utilities Answer Date Recorded In [...] is lower risk 7 07/21/2024 Data from: https://www.neighborhoodatlas.medicine.[facility].edu/. Last address used for calculation [address] [...] EDT Appointment [facility] [place] [address] [place] [address] With Perfusion 11/29/2024 1:00 PM EDT Office Visit [facility] [address] [place] [address] Anitra Walters MD [address] [place] [address] Diagnostics, Eye Tech And [address] [place] [address] Cataract Eval 12/01/2024 2:00 PM EDT [facility] [place] [address] [place] [address] Carlos Mccain DO, PhD [address] [facility] [address] [place], [place] [id number] Established patient Visit with Dr. Mccain for MRI review and follow up documented as of this encounter Visit Diagnoses Not on filedocumented in this encounter Care Teams Clinical Application Specialist Relationship Specialty Start Date End Date Lynda Manuel, ESPERANZA [address] [place] [address] PCP - General Family Medicine 06/14/24 09/26/24 Amy Collier, MONICA [address] [facility] [place] [address] PCP - General Family Medicine 09/27/24 Carolina Munguia APRN 57[address] [facility] [address] [facility] [place] [address] 12/04/23 Jessica Hope MD [address] [place] [address] Referring Hematology/Oncology 06/14/24 Shereen Smallwood PANicolasC [address] [facility] 280 [place] [address] [facility] Referring Orthopedics 06/15/24 [place] [address] [place] [id number] Specialty General Intern Hematology/Oncology 07/31/24 documented as of this encounter
--- OUTSIDE RECORDS SUMMARY | 2024-11-04 10:25 | XMS_ITS | Encounter Summary ---
Author Organization [employer] Address [id number] [address] [place] [address] Care Team Providers Care Sling Operator Name Role Phone Amy Collier MOLDER HELPER-CRM MARKETING ANALYST Primary Care Provider + Encounter Details Date Type Department Care Team (Late st Contact Info) Description 08/22/2024 Telephone [facility] [address] [facility] [address] [place] [address] Viviane Lopez CMA Social History Tobacco Use Types Packs/Day Years Used Date Smoking Tobacco: Never Passive Smoke Exposure: Past Smokeless Tobacco: Never Alcohol Use Standard Drinks/Week Comments Not Currently 0 (1 standard drink = 0.6 oz pur e alcohol) [facility] Utilities Answer Date Recorded In the past 12 months has [employer] electric, gas, oil, or water griddig threatened to shut off services in your [...] Answer Date Recorded Total Score 0 08/10/2024 [facility] [place] of Occupat ional Health - Occupational Stress [...] Lopez CMA - 08/22/2024 4:54 PM EDT [facility] Microbiology lab Radha called she said they have a positive culture for rico of her left breast they be reached at [phone] * Telephone Encounter - AMEENA Kennedy - 08/22/2024 4:54 PM EDT Called micro back. Positive [employer]. This is known for the patient. Currently seeing ID documented in this encounter Plan of Treatment Upcoming Encounters Date Type Department Care Team (Late st Contact Info) Description 11/16/2024 1:30 PM EDT Office Visit [facility] [address] [facility] [address] [facility] [place] [address] Marisela Davila APRN-CNP [address], [facility] [address] [place] [address] documented as of this encounter Goals Goal Patient Goal Type Associated Problems Recent Progress Patient-Stated? 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
--- OUTSIDE RECORDS SUMMARY | 2024-11-04 10:25 | XMS_ITS | Encounter Summary ---
Author Organization [employer] Address [id number] [address] [place] [address] Care Team Providers Care Nail Making Machine Setter Name Role Phone Amy Collier NEWBORN HEARING SCREENER-INSURANCE ATTORNEY Primary Care Provider + Encounter Details Date Type Department Care Team (Late st Contact Info) Description 04/21/2023 Orders Only [facility] [address] [facility] [address] [place] [phone] Ref Prov, [place] [address] Social History Tobacco Use Types Packs/Day Years [...] Answer Date Recorded Total Score 0 03/07/2022 [facility] of Occupat ional Health - [...] Reconstructive Surgery [address] [place] [phone] Marisela Davila, NEWBORN HEARING SCREENER-INSURANCE ATTORNEY [address], [address] [place] [address] documented as of this encounter [...] Infection Onset Date Last Indicated Resolved Time CORPORATE EVENTS DIRECTOR Comment:LT CHEST WALL TISSUE(08/12/24) 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
--- OUTSIDE RECORDS SUMMARY | 2024-11-04 10:25 | XMS_ITS | Encounter Summary ---
Author Organization [employer] Address [id number] [address] [place] [address] Care Team Providers Care Technology Infusion Specialist Name Role Phone Amy Collier STACKER OPERATOR-REGRINDER OPERATOR Primary Care Provider + Encounter Details Date Type Department Care Team (Late st Contact Info) Description 04/27/2024 Telephone [facility] [address] [facility] [address] [place] [address] Viviane Lopez CMA Social History Tobacco Use Types Packs/Day Years Used Date Smoking Tobacco: Never Passive Smoke Exposure: Past Smokeless Tobacco: Never Alcohol Use Standard Drinks/Week Comments Yes 0 (1 standard drink = 0.6 oz pur e alcohol) Socially [facility] Utilities Answer Date Recorded In the past 12 months has [employer] electric, gas, oil, or water [employer] threatened to shut off services in your [...] often do you attend chur ch or caodaism services? 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
--- OUTSIDE RECORDS SUMMARY | 2024-11-04 10:25 | XMS_ITS | Encounter Summary ---
Author Organization [facility] Address [facility] [place] [address] Care Team Providers Care Steam Press Operator Name Role Phone Carolina Munguia APRN Unavailable [phone] Jessica Hope MD Unavailable [phone] Lynda Manuel COLORER MACHINE Primary Care Provider [phone] Shereen Smallwood PA-C Unavailable [phone] Radha Martinez RN Unavailable Amy Collier NP Primary Care Provider [phone] Source Comments In the event this information is protected by the Federal Confidentiality of Alcohol and Drug AbusePatient Records regulations: The Federal rules restrict any use of the information to criminally investigate or prosecute any alcohol or drug abuse patient.[facility] Reason for Referral * MRI/CT (Routine) - Pending Review Specialty Diagnoses / Procedures Referred By Jose olmedo Referred To Contact MR IMAGING Diagnoses Secondary malignant neoplasm of brain (HCC) Procedures MRI BRAIN WO/W IVCON MRI BRAIN BRAIN STEM W/O W/CONTRAST MATERIAL Carlos Mccain DO, PhD [address] [facility] [address] [place] [address] Phone: tel: fax: [place] [address] Referral ID Status Reason Start Date Expiration Date Visits Requested Visits Authorized [id number] Pending Review Auto-Generat ed Referral 09/01/2024 10/01/2025 1 1 * MRI/CT (Routine) - Closed Specialty Diagnoses / Procedures Referred By Jose t Referred To Contact MR IMAGING Diagnoses Secondary malignant neoplasm of brain (HCC) Procedures MRI BRAIN LOCALIZATION W IVCON MAGNETIC RESONANCE ELASTOGRAPHY Carlos Mccain DO, PhD [address] [place] [address] Phone: tel: fax: [place] [address] Referral ID Status Reason Start Date Expiration Date V isits Requested Visits Authorized [id number] Closed Auto-Generate d Referral 09/05/2024 10/20/2024 1 1 Encounter Details Date Type Department Care Team (Late st Contact Info) Description 09/01/2024 Cure Form [facility] [address] [place] [address] Carlos Mccain DO, PhD [address] [place] [address] Secondary malignant neoplasm of brain (HCC) (Primary Dx) Social History Tobacco Use Types Packs/Day Years Used Date Smoking Tobacco: Never Passive Smoke Exposure: Never Smokeless Tobacco: Never Alcohol Use Standard Drinks/Week Comments Not Currently 0 (1 standard drink = 0.6 oz pur e alcohol) Occasional wine [employer] [facility] [employer] Utilities Answer Date Recorded In the past 12 months has e [employer], gas, oil, or water [employer] threatened to shut off services in your [...] Info) Description 11/29/2024 10:20 AM EDT Appointment [facility] [place] [address] [place] [address] With Perfusion 11/29/2024 1:00 PM EDT Office Visit [facility] Ophthalmology [address] [place] [address] Anitra Walters MD [address] [place] [address] Diagnostics, Eye Tech And [address] [address] Cataract Eval 12/01/2024 2:00 PM EDT [facility] [address] [place] [address] Carlos Mccain DO, PhD [address] [place] [address] Established patient Visit with Dr. Mccain for [...] an incidental meningioma. No new enhancing lesion. Director Process Improvement: [facility] Transcribe Date/Time: Sep 07 2024 8:44A [...] basal cisterns are patent. Procedure Note Provider, [facility] [place] - 09/07/2024 * * *Final Report* * [...] an incidental meningioma. No new enhancing lesion. Director Process Improvement: [facility] Transcribe Date/Time: Sep 07 2024 [...] cord documented in this encounter Care Teams Steam Press Operator Relationship Specialty Start Date End Date Lynda Manuel, COLORER MACHINE [address] [place] [address] PCP - General Family Medicine 06/14/24 09/26/24 Amy Collier, MONICA [address] [place] [address] PCP - General Family Medicine 09/27/24 Carolina Munguia APRN [address] [facility] [address] [place], [place] [id number] 12/04/23 Jessica Hope MD [address] [place] [address] Referring Hematology/Oncology 06/14/24 Shereen Smallwood PA-C [address] [facility] [address] [place] [address] [facility] Referring Orthopedics 06/15/24 [place] [address] [place] [address] Specialty Offender Job Retention Specialist Hematology/Oncology 07/31/24 documented as of this encounter
--- OUTSIDE RECORDS SUMMARY | 2024-11-04 10:25 | XMS_ITS | Encounter Summary ---
Author Organization [facility] tem Address [id number] [address] [place] [address] Care Team Providers Care Alum Operator Name Role Phone Amy Collier WASTEWATER MANAGER-COMMERCIAL STRIPPER Primary Care Provider + Encounter Details Date Type Department Care Team (Late st Contact Info) Description 05/02/2024 Orders Only [facility] [address] [place] [phone] Rossy Ng RN Social History Tobacco Use Types Packs/Day Years Used Date Smoking Tobacco: Never Passive Smoke Exposure: Past Smokeless Tobacco: Never Alcohol Use Standard Drinks/Week Comments Yes 0 (1 standard drink = 0.6 oz pur e alcohol) Socially [employer] Utilities Answer Date Recorded In the past [...] Answer Date Recorded Total Score 2 03/30/2024 [facility] of Occupat ional Health - Occupational [...] Surgery [address] [facility] [address] [place] [address] Marisela Davila, WASTEWATER MANAGER-COMMERCIAL STRIPPER [address], [address] [place] [address] documented as of this encounter Goals Goal Patient Goal Type Associated Problems Recent Progress Patient-Stated? 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
--- OUTSIDE RECORDS SUMMARY | 2024-11-04 10:46 | XMS_ITS | CCD ---
Author Organization [facility] Care Team Providers Care Supervisor Press Room Name Role Phone Jesusita Gee Unavailable RANDY [...] Unavail able RANDY CALLE Primary Care Unavailable [place], Hua Kraus Admitting Unavail able Reny, Hua [...] Care Unavailable KRYSTEN, DR ANNE Consulting Unavailable MILLERTON, DR HIRAL Meza Consulting Unavailable MAR, DR KAYE Garcia Consulting Unavailable Sandirta WILLETT Primary Care Physician RANDY CALLE Primary [...] Attending Provider Aarti Hope MD Referring Provider Jay DO, Evan Attending Provider Jacques WEB DEVELOPMENT INSTRUCTOR-DIAL SCREW ASSEMBLER, [facility] Primary Care Provider Rusty Horton Attending Unavailable Ulisses GONSALEZ Attending Unavailable Sandrita WILLETT Attending Unavailable Haenoc, Astrit H Attending Unavailable Jose, Astrit H Attending Unavailable Jacques WEB DEVELOPMENT INSTRUCTOR-DIAL SCREW ASSEMBLER, Richie William Primary Care Provider Randy Calle MD Primary Care Provider [phone] Jaypepe GALLEGOS Evan Attending Provider Randy Calle DO Primary Care Provider [phone] Shereen Smallwood PA-C Attending Provider Shereen Smallwood PA-C Referring Provider Aarti Hope MD Attending Provider NASREEN LI Attending Unavailable JAYSILVIOY Attending Unavailable GEORGIANA JUSTICE Attending Unavailable YVES COFFEY Attending Unavailable YVES COFFEY Attending Unavailable EVAN THOMPSON Attending Unavailable YVES COFFEY Attending Unavailable SILVIO THOMPSONY Attending Unavailable SILVIO THOMPSONY Attending Unavailable Gino Flower APRN Unavailable Aarti Hope MD Unavailable [phone] Mar MATA, Kaye R Primary Care Provider Shereen Smallwood PA-C Unavailable Saman Joe RN Unavailable Jacques TUFT MACHINE OPERATOR, Richie Ernst Primary Care Provider [phone] JOSHS, KAYE R Primary Care Unavailable MCCAIN, [...] Unavailable JOSHS, KAYE R Primary Care Unavailable GENO PIERCE Referring Unavailable GENO PIERCE Attending Unavailable [...] Referring Unavailable BURKITT, GENNA Admitting Unavailable [facility] Unavailable MCCAIN, JOSUE Referring Unavailable [facility]ACQUES, [facility] Primary Care Unavailable MCCAIN, JOSUE Referring Unavailable [facility]ACQUES, [facility] Primary Care Unavailable MCCAIN, JOSUE Referring [...] Unavailable Randy Calle DO Primary Care Provider [phone] Shereen Smallwood PA-C Attending Provider [phone] Quincy Colbert MD Attending Provider MARISELA CUEVAS [...] JACQUES, RICHIE L Primary Care Unavailable MARISELA CUVEAS Attending Unavailable JACQUES, RICHIE L Referring Unavailable [...] Evan Admitting Unavailable Jay, Evan Attending Unavailable Jyay, Aarti Admitting Unavailable Jayy, Aarti Attending Unavailable Furlong, Randy Primary Care Unavailable JACQUES, RICHIE L Primary Care Unavailable MARISELA CUEVAS A Referring Unavailable JACQUES, RICHIE L Primary Care Unavailable CARLENE NOGUERA Consulting Unavailable JHON GROSS Admitting Unavail able SUGJHON Jaramillo Attending Unavail able JHON GROSS Referring Unavail able STANLEY MCDERMOTT Attending Unavailable [facility], [facility] Primary Care Unavailable NIMO MEZA Admitting Unavailab KAYLEIGH Winston Attending Unavailabl e JACQUES, [facility] Primary Care Unavailable MANSOOR, CARLENE U Consulting Unavailable EPIFANIO HENRY Consulting Unavailable SHANON JOE Consulting Unavailable JACQUES, [facility] Primary Care Unavailable EPIFANIO HENRY Referring Unavailable EPIFANIO HENRY Attending Unavailable JACQUES, [facility] Primary Care Unavailable LILIANE VALLE Referring Unavailable JACQUES, [facility] Primary Care Unavailable JHON GROSS Admitting Unavail able JHON GROSS Attending Unavail able ALBA CORREA Attending Unavailable JACQUES, [facility] Primary Care Unavailable JACQUES, [facility] Referring Unavailable JACQUES, [facility] Primary Care Unavailable JACQUES, [facility] Primary Care Unavailable JHON GROSS Attending Unavail able JHON GROSS Admitting Unavail able JACQUES, [facility] Primary Care Unavailable RENO KENYON Attending Unavailable RAYMOND SEPULVEDA Attending Unavailable JACQUES, [facility] Referring Unavailable JACQUES, [facility] Primary Care Unavailable MANSOOR, CARLENE U Consulting Unavailable JACQUES, [facility] Primary Care Unavailable JHON GROSS Admitting Unavail able JHON GROSS Attending Unavail able JAYY, AARTI Consulting Unavailable JACQUES, RICHIE L Referring Unavailable JACQUES, [facility] Primary Care Unavailable RAYMOND SEPULVEDA Attending Unavailable JACQUES, [facility] Referring Unavailable JACQUES, [facility] Primary Care Unavailable MANSOOR, CARLENE U Consulting Unavailable ROYER RAE Attending Unavailable SURESH RODRÍGUEZ Admitting Unavailable JACQUES, [facility] Primary Care Unavailable JHON GROSS Consulting Unavail able JAYY, AARTI Consulting Unavailable JACQUES, [facility] Primary Care Unavailable GINO FLOWER Referring Unavailable JACQUES, [facility] Primary Care Unavailable LEONARDO IBARRA Attending Unavailable [...] Unavailable SUGG, JHON CHEEMA Admitting Unavail able SUGGJHON Attending Unavail able JACQUES, RICHIE L Referring Unavailable JACQUES, RICHIE L Primary Care Unavailable JACQUES, RICHIE L Primary Care Unavailable SUGG, JHON ANETTE Admitting Unavail able SUGGJHON Attending Unavail able RAYMOND SEPULVEDA Attending Unavailable JACQUES, RICHIE L Referring Unavailable JACQUES, RICHIE L Primary Care Unavailable HERMAN LUI Attending Unavailable HERMAN LUI Attending Unavailable HARIS LAY Admitting Unavailable GRACE VIVAR Attending Unavailable RESEARCH, GENERIC Attending Unavailable RESEARCH, GENERIC Attending Unavailable RESEARCH, GENERIC Attending Unavailable RESEARCH, GENERIC Attending Unavailable RESEARCH, GENERIC Attending Unavailable JUHI ATWOOD Attending Unavailable HERMAN LUI Attending Unavailable HERMAN LUI Attending Unavailable HERMAN LUI Attending Unavailable HERMAN LUI Attending Unavailable ADA JACQUES Referring UnavailSCOTT Oh Attending Unavailable KAVON VEGAS Referring Unavailable SANDRITA AGOSTO Attending Unavailable HERMAN LUI Attending Unavailable RESEARCH, GENERIC Attending Unavailable RESEARCH, GENERIC Attending Unavailable JOSSY MOODY Attending Unavailable HERMAN LUI Attending Unavailable RESEARCH, GENERIC Attending Unavailable Allergies Allergy Classification Reported Allergen(s) Allergy Type Date of Onset Reaction(s) Facility (20 sources) Meperidine; Translations: [meperidine] Drug Allergy 9 anaphylaxis, Eruption of skin (disorder), Swelling, Unknown, Facial Swelling, Other: See Comments, Rash [facility] [place] (1 source) Adhesive bandage; Translations: [Adhesive Bandage] Propensity to adverse reactions (disorder) [facility] Repository (4 sources) Meperidine; Translations: [Demerol] Drug Allergy 3 [facility] Repository (20 sources) Adhesive agent; Translations: [ADHESIVE] Drug allergy (disorder) [address] [facility] Repository (20 sources) Meperidine Drug Allergy 3 Unknown [facility] (20 sources) Wound Dressing Adhesive Drug Allergy 3 Unknown, Rash, Itching [facility] (20 sources) DAPTOmycin; Translations: [daptomycin] Drug Allergy 4 Flushing (disorder), Flushing, Other: See Comments [facility] (20 sources) Doxycycline; Translations: [doxycycline] Drug Allergy 4 Rash [facility] (20 sources) tigecycline; Translations: [tigecycline] Drug Allergy 4 Vomitus (substance), Rash, Vomiting [facility] (20 sources) Daptomycin Propensity to adverse reactions 4 Other [facility] (20 sources) Tetracycline; Translations: [tetracycline] Drug Allergy 4 Rash [facility] (20 sources) tigecycline Drug Allergy 4 Hives [facility] (20 sources) Vancomycin; Translations: [VANCOMYCIN] Drug Allergy 4 Other (See Comments), Other: See Comments [facility] (20 sources) Adhesive agent Propensity to adverse reactions to drug 2 Rash [facility] (20 sources) Adhesive Tape-Silicones; Translations: [ADHESIVE TAPE-SILICONES] Propensity to adverse reactions to drug 4 Itching [facility] (3 sources) ceftaroline Drug Allergy 5 [facility] (20 sources) ceftaroline fosamil; Translations: [CEFTAROLINE FOSAMIL] Drug Allergy 5 Fever, Other: See Comments [facility] Work Phone: (3 sources) Adhesive agent Propensity to adverse reactions to drug 2 Rash [facility] (1 source) DAPTOmycin Drug Allergy 5 [facility] Repository (1 source) Doxycycline Drug Allergy 5 [facility] (1 source) Meperidine Drug Allergy 5 [facility] (1 source) tigecycline Drug Allergy 5 [facility] (1 source) Vancomycin Drug Allergy 4 [facility] Repository Medications Current Medications Medication Drug [...] Opioid Agonist Start: 05-13-2023 End: 06-01-2024 HYDROcodone-acetaminophen ([place]) 5-325 MG tablet TAKE ONE TABLET BY [...] day(s), # 21 cap(s), Refills(s) 0, Pharmacy: [facility]/pharmacy #[id number], 180, cm, 07/14/22 14:05:00 EDT, [...] N) 500 mg injection Current inpatient at [facility] receiving iv antibiotics 03/29/2024 07/15/2024 [...] 12/03/23 at 1200, Indication: Nontuberculous mycobacterial infection (telecom manager drug) CLOFAZIMINE, BULK, MISC (20 sources) CLOFAZIMINE, [...] take 1 capsule by mouth at bedti mo CLOFAZIMINE, BULK, MISC Take 50 mg by [...] Start: 04-06-2023 End: 03-18-2024 Flonase 0.05 mg/inh [place] 1 spray(s), Nasal, BID, Refill(s) 0 Start [...] at bedtime as needed. 06/15/2024 Active nystatin [id number] unt/ml oral suspension (4 sources) Polyene Antifungal [...] week. 750 mg- hasn't started yet Active hgpjvqfb-jxlgqjrsq-mstizdy H MB (JOSE) 7-7-1.5 gram powder in packet (18 sources) Start: 05-12-2024 End: 07-14-2024 dhrrhdmv-ziwosusxz-vqegcuq H MB (JOSE) 7-7-1.5 gram powder in [...] use. docusate sodium 50 mg / sennosides, fci 8.6 mg oral tablet (1 source) Start: [...] is REQUIRED to use this drug at [facility], [facility] and [facility] per [facility]-approved policy # MM 1.15: Yes iron sucrose [...] oral, As needed, potassium supplementation, Starting on [facility] 12/03/23 at 0602, Progress to oral [...] Active Start: 03-22-2023 take 1 tablet by [facility] twice daily at bedtime Start: 08-18-2022 take 1 tablet by [facility] once daily Klor-Con M20 20 MEQ Oral Tablet Extended Release Take 1 tablet daily Quantity: 90 Refills: 3 Ordered: 18-Aug-2022 Shanon Tyler MD Start : 18-Aug-2022 Active take 2 tablets by [facility] twice daily potassium chloride (K-TAB) 10 mEq [...] monitoring; Translations: [Encounter for medication monitoring] Onset: 04-20-2024 Episodic Other aftercare (2 sources) Encounter for other specified surgical aftercare; Translations: [Encounter for other specified surgical aftercare] Onset: 11-04-2023 Episodic Other aftercare (1 source) Other computer terminal operator (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 therapy; Translations: [Other computer terminal operator (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 therapy] Onset: 06-03-2024 Episodic Other [...] Name Value Interpretation Reference Range Facility 36on 11-03-2024 36 Ok, lets continue to hold then and follow up with her ultrasound on 11/04 [facility] 36 Spoke with patient. She stated that she saw her Oncology doctor on 11/02 and they told her to hold Amikacin due to kidney function. They want patient to hold Amikacin until she gets kidney ultrasound on 11/04. Patient stated that her nausea and diarrhea are better since she has not been taking Amikacin but the ringing in her ears continues to be the same. [facility] 36on 11-01-2024 36 Patient notified. [facility] 36 Ok if she is feeling better lets see if she can take the Thursday dose. She should have had a level drawn on thursday [facility] 36 Telephone Encounter Reason for Call: Amikacin Patient stated that she did not take Amikacin over thew weekend due to having ringing in her ears, in addition to stomach issues. Patient Name: Ike Flannery Dustin Molina, [facility] Orders Onlyon 10-19-2024 Orders Only [id number] Ike Flannery Yumi 1970 F Date Provider Department Center 10/19/2024 [id number], HISTORICAL [facility] INF Anthony Heal Family History Adopted: Yes Problem Relation Age of Onset Heart attack Father Family Status - Relation Status Age at Father [facility] Follow-Upon 10-18-2024 Follow-Up [id number] Ike Flannery 1970 F Date Provider Department Center 10/18/2024 HERMAN VITAL [facility] INF [facility] Heal Family History Adopted: Yes Problem Relation Age of Onset Heart attack Father Family Status - Relation Status Age at Father Level of Service:72970 DC OFFICE/OUTPATIENT ESTABLISHED LOW MDM 20 MIN Reason for Visit and Comments: Follow-up [111339] Normal [facility] Orders Onlyon 10-18-2024 Orders Only [id number] Ike Flannery 1970 F Date Provider Department Center 10/18/2024 [id number], HISTORICAL RHC INF Anthony Heal Family History Adopted: Yes Problem Relation Age of Onset Heart attack Father Family Status - Relation Status Age at Father Normal [facility] Abstracton 10-17-2024 Abstract [id number] Ike Flannery 1970 Date Provider Department Center 10/17/2024 HERMAN VITAL [facility] INF Anthony Heal Family History Adopted: Yes Problem Relation Age of Onset Heart attack Father Family Status - Relation Status Age at Father Normal [facility] Orders Onlyon 10-17-2024 Orders Only [id number] Ike Flannery 1970 Date Provider Department Center 10/17/2024 [id number], HISTORICAL [facility]HC INF Anthony Heal Family History Adopted: Yes Problem Relation Age of Onset Heart attack Father Family Status - Relation Status Age at Father Normal [facility] ANAEROBIC CULTUREon 10-13-19 ANAEROBIC CULTURE CULTURE RESULTS NO GROWTH 5 DAYS Normal [facility] Comment on above: Order Comment: Pre-o p diagnosis:BREAST WOUND LEFT Performed By: #### A NAC ####[facility] ([facility])[address] [address] VIR FUNGAL CULTURE INCLUDES AVELINA AL SMEARon 10-12-2024 FUNGAL CULTURE INCLUDES FUNGAL SMEAR CULTURE RESULTS MYCOBACTERIUM ABSCESSUS Mycobacterium abscessus FUNGAL SMEAR No fungal elements seen On Direct Smear Normal [facility] Comment on above: Order Comment: Pre-o p diagnosis:BREAST WOUND LEFTContact microbiology if further workup is needed Performed By: #### F XIAO ####[facility] ([facility])[address] [place] [address] VIR TISSUE CULTUREon 10-12-2024 TISSUE CULTURE CULTURE RESULTS NO GROWTH 3 DAYS GRAM STAIN 0 White Blood Cells/LPF 0 Squamous Epithelial Cells/LPF No organisms seen Normal [facility] Comment on above: Order Comment: Pre-o p diagnosis:BREAST WOUND LEFT Performed By: #### T ISC ####[facility] ([facility])[address], [place] [address] VIR CNOPon 10-07-2024 CNOP Operative Note (Enc) (NSCAMN) Encounter Status:Closed by JOSUE MCCAIN on 10/07/24 Normal [facility] CNOVon 10-07-2024 CNOV Office Visit (NOGKCA ) IKE FLANNERY ([id number]) 1970 F Date Time Provider Department 10/07/24 9:00 AM PLACEMENT VIVIENNE JOSEPH NOGKCYumi During your visit today, we recorded the [...] abuse: no Allergies reviewed with patient, yes. [id number] Mask completed. To imaging for CT Scan and MRI. Ike Flannery returned to department for treatment # 1 of . Is patient on immunotherapy? No. Patient's Age: 53 Menstruation Status: Hysterectomy 921 Decadron 4 mg po and xanax 0.5 po given prior to Gamma Knife SRS per order of Dr. Adán MD. 0990 Patient assisted to treatment room. Gamma Knife SRS begun. 1014 Gamma Knife Stereotactic Radiosurgery Completed. 1020 Discharge instructions given to patient. Instructions reviewed by this nurse and patient verbalized an understanding. Pt then discharged. OC Hinds Colleen, RN 10/07/2024 9:16 AM Signed [facility] Gamma Knife Center Discharge Instructions As with [...] a physician or hospital other than the [facility] with any problem related to the Gamma Knife procedure, please call your physician, Dr. Sherly Mccain at [phone]. After your treatment, you may experience a [...] call your physician, Dr. Sherly Mccain at [phone] Thursday through Thursday 8:00 am to 5:00 pm. In the evening or on weekends, call [phone] or toll-free [phone] and ask the sewing machine operator to page your neurosurgeon's resident professional volleyball player. Referring Provider: JOSUE MCCAIN [[id number]] Allergies As [...] 10/07/2024 Reviewed by: Corry Beal, RT(R) - Fu (more content not included)... Normal [facility] CT BRAIN STEREOLOCAL WO IVCO Non [...] this is for gk planning purposes. - [id number] - - - - TECHNIQUE: CT head [...] or retention cysts in both maxillary antra. Sewage Plant Supervisor (topogram) images: No additional findings. IMPRESSION: Examination performed for preprocedural planning purposes. Community Support Worker: CARLOS Transcribe Date/Time: Oct 07 2024 8:54A Dictated by : MACIE PIZANO DO This examination was interpreted and the report reviewed and electronically signed by: MACIE PIZANO DO on Oct 07 2024 8:56AM EST [id number] Normal [facility] CT Guidance for stereotactic biopsy of Head-- WO contraston 10-07-2024 Radiology Study observation (narrative) [facility] IMPRESSION: Examination performed for preprocedural planning purposes. Community Support Worker: CARLOS Transcribe Date/Time: Oct 07 2024 8:54A Dictated by : MACIE PIZANO DO This examination was interpreted and the report reviewed and electronically signed by: MACIE PIZANO DO on Oct 07 2024 8:56AM [facility] DIVISION OF RADIOLOGY * * *Final Report* [...] this is for gk planning purposes. - [id number] - - - - TECHNIQUE: CT head [...] or retention cysts in both maxillary antra. Sewage Plant Supervisor (topogram) images: No additional findings. DIVISION OF RADIOLOGY Provider, [facility] - 10/07/2024 * * *Final Report* [...] this is for gk planning purposes. - [id number] - - - - TECHNIQUE: CT head [...] or retention cysts in both maxillary antra. Sewage Plant Supervisor (topogram) images: No additional findings. IMPRESSION IMPRESSION: Examination performed for preprocedural planning purposes. Community Support Worker: CARLOS Transcribe Date/Time: Oct 07 2024 8:54A Dictated by : MACIE PIZANO DO This examination was interpreted and the report reviewed and electronically signed by: MACIE PIZANO DO on Oct 07 2024 8:56AM [facility] CT Guidance for stereotactic biopsy of Head-- WO contrastOrdered By: Ccf Provider on 10-07-2024 [facility] MR Guidance for stereotactic localization of Brain-- W contrast Ashwin 10-07-2024 IMPRESSION: Examination performed for preprocedural planning purposes. Stable small lesion in the left middle frontal gyrus. Slight decrease in size of midline cerebellar vermis lesion and left inferior frontal lesion from 09/07/2024. Community Support Worker: CARLOS Transcribe Date/Time: Oct 07 2024 8:56A Dictated by : MACIE PIZANO DO This examination was interpreted and the report reviewed and electronically signed by: MACIE PIZANO DO on Oct 07 2024 9:01AM [facility] DIVISION OF RADIOLOGY * * *Final Report* [...] this is for gk planning purposes - [id number] - - - - TECHNIQUE: MRI brain [...] cisterns are clear. DIVISION OF RADIOLOGY Provider, [facility] - 10/07/2024 * * *Final Report* [...] this is for gk planning purposes - [id number] - - - - TECHNIQUE: MRI brain [...] and left inferior frontal lesion from 09/07/2024. Community Support Worker: CARLOS Transcribe Date/Time: Oct 07 2024 8:56A Dictated by : MACIE PIZANO DO This examination was interpreted and the report reviewed and electronically signed by: MACIE PIZANO DO on Oct 07 2024 9:01AM EST [facility] Radiology Study observation (narrative) [facility] MR Guidance for stereotactic localization of Brain-- W contrast IVOrdered By: Ccf Provider on 10-07-2024 [facility] MRI BRAIN LOCAL W IVCONon MRI BRAIN [...] this is for gk planning purposes - [id number] - - - - TECHNIQUE: MRI brain [...] and left inferior frontal lesion from 09/07/2024. Community Support Worker: CARLOS Transcribe Date/Time: Oct 07 2024 8:56A Dictated by : MACIE PIZANO DO This examination was interpreted and the report reviewed and electronically signed by: MACIE PIZANO DO on Oct 07 2024 9:01AM EST [id number] Normal [facility] Orders Onlyon 10-06-2024 Orders Only [id number] Ike Flannery 1970 F Date Provider Department Center 10/06/2024 [id number], HISTORICAL RHC INF [facility] Heal Family History Adopted: Yes Problem Relation Age of Onset Heart attack Father Family Status - Relation Status Age at Father Normal [facility] Orders Onlyon 10-04-2024 Orders Only [id number] Ike Flannery A 1970 F Date Provider Department Center 10/04/2024 [id number], HISTORICAL RHC INF Anthony Heal Family History Adopted: Yes Problem Relation Age of Onset Heart attack Father Family Status - Relation Status Age at Father Normal [facility] Orders Onlyon 09-27-2024 Orders Only [id number] Ike Flannery A 1970 Date Provider Department Center 09/27/2024 [id number], HISTORICAL RHC INF Anthony Heal Family History Adopted: Yes Problem Relation Age of Onset Heart attack Father Family Status - Relation Status Age at Father Normal [facility] Telephone ([facility]) THERESA FLANNERYZABETH ([id number]) 1970 F Date Time Provider Department 09/23/24 FRANCOISE JOHNSTON [facility] During your visit today, we recorded the following information about you: Francoise Johnston, RN 09/23/2024 11:49 AM Signed I spoke [...] OCCA - Fully Assessed Reason for Visit: Education Diagnostician - Other [3602] Prescriptions as of 09/23/2024 [...] Encounter Status:Closed by FRANCOISE JOHNSTON on 09/23/24 [facility] Delia 09-22-2024 CNPN Telephone (NSCAMN) IKE FLANNERY ([id number]) 1970 F Date Time Provider Department 09/22/24 JOSUE MCCAIN NSCAMN During your visit today, we recorded the following information about you: Crow Del Vallefrancised 09/22/2024 4:50 PM Signed General Call Caller [...] Encounter Status:Closed by FRANCOISE JOHNSTON on 09/23/24 [facility] 36on 09-20-2024 36 Call to Quique, Pharmacist at [facility] to update that Imipenem 1g Q12 and Amikacin 900mg three times per week should be extended to 03/16/[address] Lui. Patient next follow up appointment is 10/[address] Lui. [facility] Orders Onlyon 09-19-2024 Orders Only [id number] Ike Flannery 1970 F Date Provider Department Center 09/19/2024 [id number], HISTORICAL [facility] INF Anthony Heal Family History Adopted: Yes Problem Relation Age of Onset Heart attack Father Family Status - Relation Status Age at Father Normal [facility] CNOVon 09-16-2024 CNOV Office Visit (PLASMN ) IKE FLANNERY ([id number]) 1970 F Date Time Provider Department 09/16/24 8:40 AM GENO PIERCE PLASMGalo During your visit today, we recorded the following information about you: Temperature Pulse Blood pressure 97.4 degrees 84/minute 136/90 Geno Pierce, WEB DEVELOPMENT INSTRUCTOR.DIAL SCREW ASSEMBLER 09/16/2024 2:45 PM Signed Plastic Surgery Note CC: post op HPI: Ike is a 53 year old female who presents today for evaluation of s/p 08/30/2024 Dr. [place] 1. Excisional biopsy right breast skin 2. Explantation of right breast tissue equine science instructor intact 3. Debridement of right breast pocket for closure and 20 x 20 cm ARTEMIO drain removed by Plastic Surgey team at [facility] Pt reports she is feeling well. Denies pain. Denies drainage from the incision. Denies fever/chills. Pathology FINAL DIAGNOSIS A. Right breast skin, excision: - Carcinoma involving dermis, see comment. B. Right breast, equine science instructor removal: - Grossly unremarkable, collapsed, textured equine science instructor (Gross examination only). SS/MLG at 1420 EDT Diagnosis Comment The morphologic features are compatible with breast origin. The lesion measures up to 10 mm and extends to inked specimen margins. ER, DC and HER2 are pending and will be [...] 4:17 PM Gross examination performed at [facility], [address] [place] [address] B. Hardware/Device/Foreig n Body Received fresh labeled as right breast tissue equine science instructor is a collapsed textured equine science instructor weighing 144.10 g and measuring 15.0 x 14.0 x 2.0 cm with the following inscription ALLOX2 SIENTRA FH 14 . No soft tissue is present. No sections are submitted. The specimen is reviewed with Dr. Kerns. Gross examination only. [facility] 08/30/24 1:20 PM Gross examination performed at [facility], [address] [place] [address] Clinical History Pre-op diagnosis: Cancer (HCC) [C80.1] History of reconstruction of both breasts [Z98.890] Performing Lab Diagnostic interpretation performed at: [facility], [address] [place] [address], [place] [address] CLIA# [id number] Laboratory Immunologist: Derick Meadows MD Disclaimer PAST MEDICAL HISTORY [...] Take 300 (more content not included)... Normal [facility] CNOVSPon 09-16-2024 [facility] Visit (SP) Office (HEMCA4) IKE FLANNERY ([id number]) 1970 F Date Time Provider Department 09/16/24 [...] Center Electronically Signed By: SHARAD Ray Marie, APRN.DIAL SCREW ASSEMBLER 09/16/2024 8:33 AM Signed Recording using [employer] software for draft documentation of the visit was discussed with the patient/authorized u.s. representative; all questions welcomed and answered. Patient/authorized u.s. representative agreed to proceed ATTENDING PHYSICIAN: Dr. Bobby Christy IDENTIFICATION: Ike Flannery is a 53 year old woman with an ER positive (41-50%), DC negative, Eky8cck negative (IHC 0+) metastatic breast cancer with [...] mastectomy with right axillary dissection and tissue equine science instructor placement Radiation Anastrozole (January 2024 - May 2024) May 2024 (metastatic diagnosis) Capecitabine (July 2024 - present) Gamma knife (September 07, 2024) INTERVAL HISTORY: Pt presents today by herself for evaluation prior to continuation of therapy for metastatic breast cancer. Metastatic Cancer: - Follows with oncologist in [place], usually monthly, but more frequently recently. - Started Xeloda on September 08; currently on treatment week, with off week starting on the . - Reports fatigue and decreased alertness after taking Xeloda; has not taken today's dose yet. - No nausea or diarrhea reported. - Noticed worsening neuropathy and yolk spray drier fingers; no redness or peeling in palms. - Prefers Xeloda over other treatments due to concerns about hair loss. - Underwent Gamma Knife surgery; reports clearer thoughts and improved speech within 48 hours post-surgery. - Weekly blood work for oncology and infectious disease monitoring. - Last PET scan in May at [facility] - No current pain reported. REVIEW OF [...] Lymph 1.00 - 4.00 k/uL 1.22 Abs Morehouse <0.87 k/uL 0.38 Abs Eosin <0.46 k/uL <0.03 Abs Baso <0.11 k/uL <0.03 NRBC /100 WBC 0.0 IMPRESSION: woman with an ER positive (41-50%), DC negative, Zho5tnj negative (IHC 0+) metastatic breast cancer with primary involvement of the liver and brain Current therapy: capecitabine Pt is without any signs or symptoms of recurrent or metastatic disease at the time of today's exam PLAN: After evaluation an (more content not included)... [facility] Orders Onlyon 09-16-2024 Orders Only [id number] Ike Flannery Yumi 1970 F Date Provider Department Center 09/16/2024 [id number], HISTORICAL [facility] Family History Adopted: Yes Problem Relation Age of Onset Heart attack Father Family Status - Relation Status Age at Father [facility] Follow-Upon 09-13-2024 Follow-Up [id number] Ike Flannery Yumi 1970 Date Provider Department Center 09/13/2024 184-HERMAN LUI [facility] Family History Adopted: Yes Problem Relation Age of Onset Heart attack Father Family Status - Relation Status Age at Father Level of Service:65838 DC OFFICE/OUTPATIENT ESTABLISHED MOD MDM 30 MIN [facility] CNOPon 09-07-2024 CNOP Operative Note (Enc) (NSCAMN) Encounter Status:Closed by JOSUE MCCAIN on 09/07/24 [facility] CNOVon 09-07-2024 CNOV Office Visit (NOGKCA ) IKE FLANNERY ([id number]) 1970 F Date Time Provider Department 09/07/24 9:00 AM PLACEMENT VIVIENNE JOSEPH NOGKCA During your visit today, we recorded the [...] abuse: no Allergies reviewed with patient, yes. [id number] Mask completed. To imaging for CT Scan [...] Hinds Colleen, RN 09/07/2024 11:06 AM Signed [facility] Gamma Knife Center Discharge Instructions As with [...] a physician or hospital other than the [facility] with any problem related to the Gamma Knife procedure, please call your physician, Dr. Sherly Mccain at [phone]. After your treatment, you may experience a [...] call your physician, Dr. Sherly Mccain at [phone] Thursday through Thursday 8:00 am to 5:00 pm. In the evening or on weekends, call [phone] or toll-free [phone] and ask the sewing machine operator to page your neurosurgeon's resident professional volleyball player. Referring Provider: JOSUE MCCAIN [[id number]] Allergies As [...] See Comments (more content not included)... Normal [facility] CT BRAIN WO IVCONon 09-08-19 CT BRAIN WO IVCON * * *Final [...] gamma knife planning, no acute intracranial pathology. Community Support Worker: CARLOS Transcribe Date/Time: Sep 07 2024 9:09A Dictated by : SMILEY GASCA MD This examination was interpreted and the report reviewed and electronically signed by: SMILEY GASCA MD on Sep 07 2024 9:11AM EST [id number] Normal [facility] CT Head WO contraston 2024 Radiology Study observation (narrative) [facility] IMPRESSION: Imaging for gamma knife planning, no acute intracranial pathology. Community Support Worker: [facility] Transcribe Date/Time: Sep 07 2024 9:09A Dictated [...] tissues are unremarkable. DIVISION OF RADIOLOGY Provider, [facility] - 09/07/2024 * * *Final Report* * * DATE OF EXAM: Sep 07 2024 8:56AM [facility] - CT BRAIN [facility] IVCON / [...] gamma knife planning, no acute intracranial pathology. Community Support Worker: [facility] Transcribe Date/Time: Sep 07 2024 9:09A Dictated by : SMILEY GASCA MD This examination was interpreted and the report reviewed and electronically signed by: SMILEY GASCA MD on Sep 07 2024 9:11AM EST [facility] CT Head WO contrastOrdered B y: [facility] Provider on 09-07-2024 [facility] MR Guidance for stereotactic localization of Brain-- W contrast Ashwin 09-07-2024 IMPRESSION: Unchanged presumed metastases in the inferior left frontal lobe and cerebellar vermis. Unchanged small enhancing nodule at the periphery of the left frontal lobe, possibly an additional metastasis or an incidental meningioma. No new enhancing lesion. Community Support Worker: [facility] Transcribe Date/Time: Sep 07 2024 8:44A Dictated by : SMILEY GASCA MD This examination was interpreted and the report reviewed and electronically signed by: SMILEY GASCA MD on Sep 07 2024 8:54AM [facility] DIVISION OF RADIOLOGY * * *Final Report* [...] cisterns are patent. DIVISION OF RADIOLOGY Provider, Evie Tapia [facility] - 09/07/2024 * * *Final Report* [...] an incidental meningioma. No new enhancing lesion. Community Support Worker: [facility] Transcribe Date/Time: Sep 07 2024 8:44A Dictated by : SMILEY GASCA MD This examination was interpreted and the report reviewed and electronically signed by: SMILEY GASCA MD on Sep 07 2024 8:54AM EST [facility] Radiology Study observation (narrative) [facility] MR Guidance for stereotactic localization of Brain-- W contrast IVOrdered By: [facility] Provider on 09-07-2024 [facility] MRI BRAIN LOCAL W IVCONon MRI BRAIN [...] an incidental meningioma. No new enhancing lesion. Community Support Worker: [facility] Transcribe Date/Time: Sep 07 2024 8:44A Dictated by : SMILEY GASCA MD This examination was interpreted and the report reviewed and electronically signed by: SMILEY GASCA MD on Sep 07 2024 8:54AM EST [id number] Normal [facility] CBC W Auto Differential pane l (Bld)on 09-01-2024 Basophils (Bld) [#/Vol] 10*3/uL Normal <0.11 [facility] Comment on above: Order Comment: Speci men Type: BLOOD SPECIMEN Ordering Facility: [facility] Address: [address] [place] [address] Performed By: #### 5 7021-8 #### [facility] CLIA [id number] [address] [place] [address] [place] Basophils/100 WBC (Bld) 0.1 % Normal [facility] Comment on above: Order Comment: Speci men Type: BLOOD SPECIMEN Ordering Facility: [facility] Address: [address] [place] [address] Performed By: #### 5 7021-8 #### [facility] CLIA [id number] [address] [place] [address] [place] Differential cell count method Nom (Bld) Auto Normal [facility] Comment on above: Order Comment: Speci men Type: BLOOD SPECIMEN Ordering Facility: [facility] Address: [address] [place] [address] Performed By: #### 5 7021-8 #### [facility] CLIA [id number] [address] [place] [address] [place] Eosinophils (Bld) [#/Vol] 10*3/uL Normal <0.46 [facility] Comment on above: Order Comment: Speci men Type: BLOOD SPECIMEN Ordering Facility: [facility] Address: [address] [place] [address] Performed By: #### 5 7021-8 #### [facility] CLIA [id number] [address] [place] [address] [place] Eosinophils/100 WBC (Bld) 0.0 % Normal [facility] Comment on above: Order Comment: Speci men Type: BLOOD SPECIMEN Ordering Facility: [facility] Address: [address] [place] [address] Performed By: #### 5 7021-8 #### [facility] CLIA [id number] [address] [place] [address] [place] Erythrocyte distribution width (RBC) [Ratio] 19.4 % High 11.5-15.0 [facility] Comment on above: Order Comment: Speci men Type: BLOOD SPECIMEN Ordering Facility: [facility] Address: [address] [place] [address] Performed By: #### 5 7021-8 #### [facility] CLIA [id number] [address] [place] [address] [place] Hematocrit (Bld) [Volume fraction] 28.1 % Low 36.0-46.0 [facility] Comment on above: Order Comment: Speci men Type: BLOOD SPECIMEN Ordering Facility: [facility] Address: [address] [place] [address] Performed By: #### 5 7021-8 #### [facility] CLIA [id number] [address] [place] [address] [place] Hemoglobin (Bld) [Mass/Vol] 9.5 g/dL Low 11.5-15.5 [facility] Comment on above: Order Comment: Speci men Type: BLOOD SPECIMEN Ordering Facility: [facility] Address: [address] [place] [address] Performed By: #### 5 7021-8 #### [facility] CLIA [id number] [address] [place] [address] [place] Immature granulocytes (Bld) [#/Vol] 0.07 10*3/uL Normal <0.10 [facility] Comment on above: Order Comment: Speci men Type: BLOOD SPECIMEN Ordering Facility: [facility] Address: [address] [place] [address] Performed By: #### 5 7021-8 #### [facility] CLIA [id number] [address] [place] [address] [place] Immature granulocytes/100 WBC (Bld) 0.9 % Normal [facility] Comment on above: Order Comment: Speci men Type: BLOOD SPECIMEN Ordering Facility: [facility] Address: [address] [place] [address] Performed By: #### 5 7021-8 #### [facility] CLIA [id number] [address] [place] [address] [place] Lymphocytes (Bld) [#/Vol] 1.22 10*3/uL Normal 1.00-4.00 [facility] Comment on above: Order Comment: Speci men Type: BLOOD SPECIMEN Ordering Facility: [facility] Address: [address] [place] [address] Performed By: #### 5 7021-8 #### [facility] CLIA [id number] [address] [place] [address] [place] Lymphocytes/100 WBC (Bld) 16.1 % Normal [facility] Comment on above: Order Comment: Speci men Type: BLOOD SPECIMEN Ordering Facility: [facility] Address: [address] [place] [address] Performed By: #### 5 7021-8 #### [facility] CLIA [id number] [address] [place] [address] [place] MCH (RBC) [Entitic mass] 32.8 pg Normal 26.0-34.0 [facility] Comment on above: Order Comment: Speci men Type: BLOOD SPECIMEN Ordering Facility: [facility] Address: [address] [place] [address] Performed By: #### 5 7021-8 #### [facility] CLIA [id number] [address] [place] [address] [place] MCHC (RBC) [Mass/Vol] 33.8 g/dL Normal 30.5-36.0 [facility] Comment on above: Order Comment: Speci men Type: BLOOD SPECIMEN Ordering Facility: [facility] Address: [address] [place] [address] Performed By: #### 5 7021-8 #### [facility] CLIA [id number] [address] [place] [address] [place] MCV (RBC) [Entitic vol] 96.9 fL Normal 80.0-100.0 [facility] Comment on above: Order Comment: Speci men Type: BLOOD SPECIMEN Ordering Facility: [facility] Address: [address] [place] [address] Performed By: #### 5 7021-8 #### [facility] CLIA [id number] [address] [place] [address] [place] Monocytes (Bld) [#/Vol] 0.38 10*3/uL Normal <0.87 [facility] Comment on above: Order Comment: Speci men Type: BLOOD SPECIMEN Ordering Facility: [facility] Address: [address] [place] [address] Performed By: #### 5 7021-8 #### [facility] CLIA [id number] [address] [place] [address] [place] Monocytes/100 WBC (Bld) 5.0 % Normal [facility] Comment on above: Order Comment: Speci men Type: BLOOD SPECIMEN Ordering Facility: [facility] Address: [address] [place] [address] Performed By: #### 5 7021-8 #### [facility] CLIA [id number] [address] [place] [address] [place] Neutrophils (Bld) [#/Vol] 5.88 10*3/uL Normal 1.45-7.50 [facility] Comment on above: Order Comment: Speci men Type: BLOOD SPECIMEN Ordering Facility: [facility] Address: [address] [place] [address] Performed By: #### 5 7021-8 #### [facility] CLIA [id number] [address] [place] [address] [place] Neutrophils/100 WBC (Bld) 77.9 % Normal [facility] Comment on above: Order Comment: Speci men Type: BLOOD SPECIMEN Ordering Facility: [facility] Address: [address] [place] [address] Performed By: #### 5 7021-8 #### [facility] CLIA [id number] [address] [place] [address] [place] Nucleated RBC (Bld) [#/Vol] 10*3/uL Normal <0.01 [facility] Comment on above: Order Comment: Speci men Type: BLOOD SPECIMEN Ordering Facility: [facility] Address: [address] [place] [address] Performed By: #### 5 7021-8 #### [facility] CLIA [id number] [address] [place] [address] [place] Nucleated RBC/100 WBC (Bld) [Ratio] 0.0 /100 WBC Normal [facility] Comment on above: Order Comment: Speci men Type: BLOOD SPECIMEN Ordering Facility: [facility] Address: [address] [place] [address] Performed By: #### 5 7021-8 #### [facility] CLIA [id number] [address] [place] [address] [place] Platelet mean volume (Bld) [Entitic vol] 9.4 fL Normal 9.0-12.7 [facility] Comment on above: Order Comment: Speci men Type: BLOOD SPECIMEN Ordering Facility: [facility] Address: [address] [place] [address] Performed By: #### 5 7021-8 #### [facility] CLIA [id number] [address] [place] [address] [place] Platelets (Bld) [#/Vol] 210 10*3/uL Normal 150-400 [facility] Comment on above: Order Comment: Speci men Type: BLOOD SPECIMEN Ordering Facility: [facility] Address: [address] [place] [address] Performed By: #### 5 7021-8 #### [facility] CLIA [id number] [address] [place] [address] [place] RBC (Bld) [#/Vol] 2.90 10*6/uL Low 3.90-5.20 [facility] Comment on above: Order Comment: Speci men Type: BLOOD SPECIMEN Ordering Facility: [facility] Address: [address] [place] [address] Performed By: #### 5 7021-8 #### [facility] CLIA [id number] [address] [place] [address] [place] WBC (Bld) [#/Vol] 7.56 10*3/uL Normal 3.70-11.00 [facility] Comment on above: Order Comment: Speci men Type: BLOOD SPECIMEN Ordering Facility: [facility] Address: [address] [place] [address] Performed By: #### 5 7021-8 #### [facility] CLIA [id number] [address] [place] [address] [place] CNDSon 09-01-2024 CNDS HNO ID: [id number] Author: EV CORTEZ DO Service: Oncology Author Type: Physician Type: Discharge Summary Filed: 09/01/2024 21:54 Note Text: DISCHARGE SUMMARY PATIENT NAME: Ike Flannery ADMISSION DATE: 08/26/2024 DISCHARGE DATE: 09/01/2024 ATTENDING PHYSICIAN: Ev Cortez Code Status: Full Code PCP: Kaye Manuel CNP, DIAL SCREW ASSEMBLER Highest Readmission Risk Score: 20 The 30 [...] -CA Bld 09/16/2024 7:30 AM Alessandra Syed APRN.DIAL SCREW ASSEMBLER HEMCA4 Main -CA Bld Follow Up Orders [...] new finding of brain metastases at [facility]. About 1.5 weeks prior to arrival, shortly after starting Xeloda, she noticed slurred speech and right hand weakness (e.g., difficulty signing her name). Her oncologist obtained a CT brain which showed a new intracranial mass, therefore she was sent to [facility] ED. They were not able to obtain an MRI due to the presence of a tissue equine science instructor in her right breast. She was transferred to [facility] to coordinate MRI brain and to transition her multidisciplinary care. Currently she is managed by 4-5 hospitals in [place] and [place] for oncology, ID and plastic surgery with scattered medical records, however would like one centralized medical center. 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 High-dose IV steroids with dexamethasone were started. Plastic Surgery was consulted and removed her right breast tissue equine science instructor so that MRI could be done. MRI [...] mets inpatient, 08/31/24. - Right breast tissue equine science instructor removed before MRI on 08/30/24. - CT brain w/wo IV contrast 08/26/24: Enhancing lesion in the cerebellar vermis, li (more content not included)... Normal [facility] CONSULT PROGon 09-01-2024 CONSULT PROG HNO ID: [id number] Author: CHRISTY DA SILVA MD Service: Infectious [...] in D5W 50 mL 900 mg INTRAVENOUS -- famotidine 40 mg tab(s) (PEPCID) 40 mg [...] is a 53 year old female from [facility] with -HTN -anemia -LLE DVT on Eliquis -R breast cancer 04/2023 s/p chemo x 16 cycles through 09/29/2023 followed by bilateral mastectomy with b/l expanders c/b L sided seroma -10/2023 bilateral skin sparing mastectomies and tissue explander reconstruction complicated by infected seroma L side - 11/27/2023 : Left breast IANDD and equine science instructor removal - 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 Treated by ID (Dr Noguera in [place]) with Amikacin 750 mg MWF, Imipenem 1 [...] amkacin, omada (more content not included)... Normal [facility] Comprehensive metabolic 2000 panelon 09-01-2024 Albumin [Mass/Vol] 3.7 g/dL Low 3.9-4.9 [facility] Comment on above: Order Comment: Speci abi Type: BLOOD SPECIMEN Ordering Facility: [facility] Address: [address] [place] [address] Performed By: #### 5 7021-8 #### [facility] CLIA [id number] [address] [place] [address] [place] ALP [Catalytic activity/Vol] 75 U/L Normal 34-123 [facility] Comment on above: Order Comment: Phyliciai abi Type: BLOOD SPECIMEN Ordering Facility: [facility] Address: [address] [place] [address] Performed By: #### 5 7021-8 #### [facility] CLIA [id number] [address] [address] [place] ALT [Catalytic activity/Vol] 109 U/L High 7-38 [facility] Comment on above: Order Comment: Speci men Type: BLOOD SPECIMEN Ordering Facility: [facility] Address: [address] [place] [address] Performed By: #### 5 7021-8 #### [facility] CLIA [id number] [address] [place], [place] [address] [place] Anion gap [Moles/Vol] 10 mmol/L Normal 8-15 [facility] Comment on above: Order Comment: Speci men Type: BLOOD SPECIMEN Ordering Facility: [facility] Address: [address] [place] [address] Performed By: #### 5 7021-8 #### [facility] CLIA [id number] [address] [place] [address] [place] AST [Catalytic activity/Vol] 72 U/L High 13-35 [facility] Comment on above: Order Comment: Speci men Type: BLOOD SPECIMEN Ordering Facility: [facility] Address: [address] [place] [address] Performed By: #### 5 7021-8 #### [facility] CLIA [id number] [address] [place] [address] [place] Bilirubin [Mass/Vol] 0.5 mg/dL Normal 0.2-1.[address] [facility] Comment on above: Order Comment: Speci men Type: BLOOD SPECIMEN Ordering Facility: [facility] Address: [address] [place] [address] Performed By: #### 5 7021-8 #### [facility] CLIA [id number] [address] [place], [place] [address] [place] Calcium [Mass/Vol] 8.9 mg/dL Normal 8.5-10.2 [facility] Comment on above: Order Comment: Speci men Type: BLOOD SPECIMEN Ordering Facility: [facility] Address: [address] [place] [address] Performed By: #### 5 7021-8 #### [facility] CLIA [id number] [address] [place] [address] [place] Chloride [Moles/Vol] 107 mmol/L Normal 98-[address] [facility] Comment on above: Order Comment: Speci men Type: BLOOD SPECIMEN Ordering Facility: [facility] Address: [address] [place] [address] Performed By: #### 5 7021-8 #### [facility] CLIA [id number] [address] [place] [address] [place] CO2 [Moles/Vol] 23 mmol/L Normal 22-30 [facility] Comment on above: Order Comment: Speci men Type: BLOOD SPECIMEN Ordering Facility: [facility] Address: [address] [place] [address] Performed By: #### 5 7021-8 #### [facility] CLIA [id number] [address] [place] [address] [place] Creatinine [Mass/Vol] 1.03 mg/dL High 0.58-0.96 [facility] Comment on above: Order Comment: Speci men Type: BLOOD SPECIMEN Ordering Facility: [facility] Address: [address] [place] [address] Performed By: #### 5 7021-8 #### [facility] CLIA [id number] [address] [place] [address] [place] Creatinine and Glomerular filtration rate.predicted panel (S/P/Bld) 65 mL/min/1.73m??? Normal >=60 [facility] Comment on above: Order Comment: Speci men Type: BLOOD SPECIMEN Ordering Facility: [facility] Address: [address] [place] [address] Result Comment: Latasha mated Glomerular Filtration Rate [...] GFR. Performed By: #### 5 7021-8 #### [facility] CLIA [id number] [address] [place] [address] [place] Glucose [Mass/Vol] 105 mg/dL High 74-99 [facility] Comment on above: Order Comment: Anitha alex Type: BLOOD SPECIMEN Ordering Facility: [facility] Address: [address] [place] [address] Result Comment: The [place] Diabetes Association (ADA) provides guidance for cutoff [...] Standards of Medical Care in Diabetes 2016, [place] [employer]. Diabetes Care. 2016.39(Suppl 1). Performed By: #### 5 7021-8 #### [facility] CLIA [id number] [address] [place], [place] [address] [place] Potassium [Moles/Vol] 4.0 mmol/L Normal 3.7-5.1 [facility] Comment on above: Order Comment: Anitha alex Type: BLOOD SPECIMEN Ordering Facility: [facility] Address: [address] [place] [address] Performed By: #### 5 7021-8 #### [facility] CLIA [id number] [address] [place], [place] [address] [place] Protein [Mass/Vol] 5.7 g/dL Low 6.3-8.0 [facility] Comment on above: Order Comment: Speci men Type: BLOOD SPECIMEN Ordering Facility: [facility] Address: [address] [place] [address] Performed By: #### 5 7021-8 #### [facility] CLIA [id number] [address] [place] [address] [place] Sodium [Moles/Vol] 140 mmol/L Normal 136-144 [facility] Comment on above: Order Comment: Speci men Type: BLOOD SPECIMEN Ordering Facility: [facility] Address: [address] [place] [address] Performed By: #### 5 7021-8 #### [facility] CLIA [id number] [address] [place] [address] [place] Urea nitrogen [Mass/Vol] 19 mg/dL Normal 7-21 [facility] Comment on above: Order Comment: Speci men Type: BLOOD SPECIMEN Ordering Facility: [facility] Address: [address] [place] [address] Performed By: #### 5 7021-8 #### [facility] CLIA [id number] [address] [place] [address] [place] Magnesium SerPl-mCncon 09-01 Magnesium [Mass/Vol] 2.1 mg/dL Normal 1.7-2.[address] [facility] Comment on above: Order Comment: Speci men Type: BLOOD SPECIMEN Ordering Facility: [facility] Address: [address] [place], [place] [address] Performed By: #### 5 7021-8 #### [facility] CLIA [id number] [address] [place] [address] [place] Phosphate SerPl-mCncon 09-01 Phosphate [Mass/Vol] 3.4 mg/dL Normal 2.7-4.[address] [facility] Comment on above: Order Comment: Speci men Type: BLOOD SPECIMEN Ordering Facility: [facility] Address: [address] [place] [address] Performed By: #### 5 7021-8 #### [facility] CLIA [id number] [address] [place] [address] [facility] SOCIAL WORKon 09-01-2024 SOCIAL WORK HNO ID: [id number] Author: Dipesh BARILLAS LISW Service: Social Work Author Type: Deputy County Counsel Type: Social Work Filed: 09/01/2024 17:00 Note [...] Unit G70. Signature: KIMBERLY Mcwilliams Oncology Clinical Deputy County Counsel Pager: [phone] Date: September 01, 2024 Time: 4:55 PM [facility] ALLIED HEALTH 08-31-2024 ALLIED HEALTH HNO ID: [id number] Author: SUZETTE CERNA Art Therapist Service: Art [...] follow up as able. SIGNATURE: Dusty Barker PATIENT NAME: Ike Flannery DATE: August 31, 2024 TIME: 3:40 PM PAGER/CONTACT #: [phone] [facility] ALLIED HEALTH HNO ID: [id number] Author: EDUARDO MEDRANO RT(Radha) Service: Radiology Author Type: Technologist Type: Allied [...] PATIENT PRESENTS WITH AN IMPLANTABLE OR ATTACHED MVA OPERATOR: No RADIOLOGY DEPARTMENT: MR; Exam(s) Completed: Head: Routine Brain. Aromatherapy Administered: No PERIPHERAL IV DATA: Inpatient: see LDA documentation SIGNED BY: RT Susy(R) August 31, 2024 7:06 AM Normal [facility] Amikacin Trough SerPl-mCncon 08-31-2024 Amikacin trough [Mass/Vol] <0.8 Low 5.0-8.0 [facility] Comment on above: Order Comment: Anitha alex Type: BLOOD SPECIMENOrdering Facility: [facility] Address: [address] [place] [address] Result Comment: Refe rence ranges and high/low indicator flags are provided as general guidelines only. The treating physician must determine appropriate target levels/dosing based on the specific clinical situation. Result rechecked. Performed By: #### 3 321-7 ####[facility] [id number] [place] [address] [place] CBC W Auto Differential pane l (Bld)on 08-31-2024 Basophils (Bld) [#/Vol] 10*3/uL Normal <0.11 [facility] Comment on above: Order Comment: Anitha alex Type: BLOOD SPECIMEN Ordering Facility: [facility] Address: [address] [place] [address] Performed By: #### 2 777-1, , #### [facility] CLIA [id number] [address] [place] [address] [place] Basophils/100 WBC (Bld) 0.1 % Normal [facility] Comment on above: Order Comment: Speci men Type: BLOOD SPECIMEN Ordering Facility: [facility] Address: [address] [place] [address] Performed By: #### 2 777-1, , #### [facility] CLIA [id number] [address] [place] [address] [place] Differential cell count method Nom (Bld) Auto Normal [facility] Comment on above: Order Comment: Speci men Type: BLOOD SPECIMEN Ordering Facility: [facility] Address: [address] [place] [address] Performed By: #### 2 777-1, , #### [facility] CLIA [id number] [address] [place] [address] [place] Eosinophils (Bld) [#/Vol] 10*3/uL Normal <0.46 [facility] Comment on above: Order Comment: Speci men Type: BLOOD SPECIMEN Ordering Facility: [facility] Address: [address] [place] [address] Performed By: #### 2 777-1, , #### [facility] CLIA [id number] [address] [place] [address] [place] Eosinophils/100 WBC (Bld) 0.0 % Normal [facility] Comment on above: Order Comment: Speci men Type: BLOOD SPECIMEN Ordering Facility: [facility] Address: [address] [place] [address] Performed By: #### 2 777-1, , #### [facility] CLIA [id number] [address] [place] [address] [place] Erythrocyte distribution width (RBC) [Ratio] 19.5 % High 11.5-15.0 [facility] Comment on above: Order Comment: Speci men Type: BLOOD SPECIMEN Ordering Facility: [facility] Address: [address] [place] [address] Performed By: #### 2 777-1, 19951-5, 89200-1 #### [facility] CLIA [id number] [address] [place] [address] [place] Hematocrit (Bld) [Volume fraction] 27.6 % Low 36.0-46.0 [facility] Comment on above: Order Comment: Speci men Type: BLOOD SPECIMEN Ordering Facility: [facility] Address: [address] [place] [address] Performed By: #### 2 777-1, 65732-4, #### [facility] CLIA [id number] [address] [place] [address] [place] Hemoglobin (Bld) [Mass/Vol] 9.3 g/dL Low 11.5-15.5 [facility] Comment on above: Order Comment: Speci men Type: BLOOD SPECIMEN Ordering Facility: [facility] Address: [address] [place] [address] Performed By: #### 2 777-1, 12802-2, #### [facility] CLIA [id number] [address] [place] [address] [place] Immature granulocytes (Bld) [#/Vol] 0.07 10*3/uL Normal <0.10 [facility] Comment on above: Order Comment: Speci men Type: BLOOD SPECIMEN Ordering Facility: [facility] Address: [address] [place] [address] Performed By: #### 2 777-1, 19970-8, #### [facility] CLIA [id number] [address] [place] [address] [place] Immature granulocytes/100 WBC (Bld) 0.8 % Normal [facility] Comment on above: Order Comment: Speci men Type: BLOOD SPECIMEN Ordering Facility: [facility] Address: [address] [place] [address] Performed By: #### 2 777-1, 72377-9, #### [facility] CLIA [id number] [address] [place] [address] [place] Lymphocytes (Bld) [#/Vol] 1.21 10*3/uL Normal 1.00-4.00 [facility] Comment on above: Order Comment: Speci men Type: BLOOD SPECIMEN Ordering Facility: [facility] Address: [address] [place] [address] Performed By: #### 2 777-1, , #### [facility] CLIA [id number] [address] [place] [address] [place] Lymphocytes/100 WBC (Bld) 14.5 % Normal [facility] Comment on above: Order Comment: Speci men Type: BLOOD SPECIMEN Ordering Facility: [facility] Address: [address] [place] [address] Performed By: #### 2 777-1, 50787-6, #### [facility] CLIA [id number] [address] [place] [address] [place] MCH (RBC) [Entitic mass] 32.6 pg Normal 26.0-34.0 [facility] Comment on above: Order Comment: Speci men Type: BLOOD SPECIMEN Ordering Facility: [facility] Address: [address] [place] [address] Performed By: #### 2 777-1, 73419-2, #### [facility] CLIA [id number] [address] [place] [address] [place] MCHC (RBC) [Mass/Vol] 33.7 g/dL Normal 30.5-36.0 [facility] Comment on above: Order Comment: Speci men Type: BLOOD SPECIMEN Ordering Facility: [facility] Address: [address] [place] [address] Performed By: #### 2 777-1, 03951-4, #### [facility] CLIA [id number] [address] [place] [address] [place] MCV (RBC) [Entitic vol] 96.8 fL Normal 80.0-100.0 [facility] Comment on above: Order Comment: Speci men Type: BLOOD SPECIMEN Ordering Facility: [facility] Address: [address] [place] [address] Performed By: #### 2 777-1, , #### [facility] CLIA [id number] [address] [place] [address] [place] Monocytes (Bld) [#/Vol] 0.49 10*3/uL Normal <0.87 [facility] Comment on above: Order Comment: Speci men Type: BLOOD SPECIMEN Ordering Facility: [facility] Address: [address] [place] [address] Performed By: #### 2 777-1, , #### [facility] CLIA [id number] [address] [place] [address] [place] Monocytes/100 WBC (Bld) 5.9 % Normal [facility] Comment on above: Order Comment: Speci men Type: BLOOD SPECIMEN Ordering Facility: [facility] Address: [address] [place] [address] Performed By: #### 2 777-1, , #### [facility] CLIA [id number] [address] [place], [place] [address] [place] Neutrophils (Bld) [#/Vol] 6.59 10*3/uL Normal 1.45-7.50 [facility] Comment on above: Order Comment: Speci men Type: BLOOD SPECIMEN Ordering Facility: [facility] Address: [address] [place] [address] Performed By: #### 2 777-1, 44017-2, #### [facility] CLIA [id number] [address] [place] [address] [place] Neutrophils/100 WBC (Bld) 78.7 % Normal [facility] Comment on above: Order Comment: Speci men Type: BLOOD SPECIMEN Ordering Facility: [facility] Address: [address] [place] [address] Performed By: #### 2 777-1, 80632-4, #### [facility] CLIA [id number] [address] [place] [address] [place] Nucleated RBC (Bld) [#/Vol] 10*3/uL Normal <0.01 [facility] Comment on above: Order Comment: Speci men Type: BLOOD SPECIMEN Ordering Facility: [facility] Address: [address] [place] [address] Performed By: #### 2 777-1, , #### [facility] CLIA [id number] [address] [place] [address] [place] Nucleated RBC/100 WBC (Bld) [Ratio] 0.0 /100 WBC Normal [facility] Comment on above: Order Comment: Speci men Type: BLOOD SPECIMEN Ordering Facility: [facility] Address: [address] [place] [address] Performed By: #### 2 777-1, 46129-7, #### [facility] CLIA [id number] [address] [place] [address] [place] Platelet mean volume (Bld) [Entitic vol] 9.3 fL Normal 9.0-12.7 [facility] Comment on above: Order Comment: Speci men Type: BLOOD SPECIMEN Ordering Facility: [facility] Address: [address] [place] [address] Performed By: #### 2 777-1, 07218-4, #### [facility] CLIA [id number] [address] [place] [address] [place] Platelets (Bld) [#/Vol] 209 10*3/uL Normal 150-400 [facility] Comment on above: Order Comment: Speci men Type: BLOOD SPECIMEN Ordering Facility: [facility] Address: [address] [place] [address] Performed By: #### 2 777-1, 65530-8, #### [facility] CLIA [id number] [address] [place] [address] [place] RBC (Bld) [#/Vol] 2.85 10*6/uL Low 3.90-5.20 [facility] Comment on above: Order Comment: Speci men Type: BLOOD SPECIMEN Ordering Facility: [facility] Address: [address] [place] [address] Performed By: #### 2 777-1, 32525-8, #### [facility] CLIA [id number] [address] [place] [address] [place] WBC (Bld) [#/Vol] 8.37 10*3/uL Normal 3.70-11.00 [facility] Comment on above: Order Comment: Speci men Type: BLOOD SPECIMEN Ordering Facility: [facility] Address: [address] [place] [address] Performed By: #### 2 777-1, 46709-7, #### [facility] CLIA [id number] [address] [place], [place] [address] [place] CONSULT PROGon 08-31-2024 CONSULT PROG HNO ID: [id number] Author: DEENA VU DO Service: Plastic Surgery Author Type: Resident Type: Consult Progress Note Filed: 08/31/2024 13:35 Note Text: PLASTIC SURGERY PROGRESS NOTE OR DATE: 08/30/2024 1 Day Post-Op Procedure(s) (LRB): REMOVAL OF TISSUE RN CRITICAL CARE(S) W/O INSERTION OF IMPLANT (Right) DEBRIDEMENT MUSCLE/FASCIAFIRST [...] 3.1 3.8 SIGNATURE: Deena Vu DO PAGER: [phone] (Plastics pager) Date of Service: August 31, 2024 Normal [facility] CONSULT PROG HNO ID: [id number] Author: CHRISTY DA SILVA MD Service: Infectious Disease Author Type: Physician Type: Consult Progress Note Filed: 08/31/2024 10:37 Note Text: INFECTIOUS DISEASE CONSULT SERVICE PROGRESS NOTE Date: August 31, 2024 Patient Name: Ike Flannery INTERVAL HISTORY/24HOUR EVENTS: S/p 08/30/24 Procedure(s): 1. Excisional biopsy right breast skin 2. Explantation of right breast tissue equine science instructor intact 3. 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 Treated by ID (Dr Noguera in [place]) with Amikacin 750 mg MWF, Imipenem 1 [...] requiring mul (more content not included)... Normal [facility] Comprehensive metabolic 2000 panelon 08-31-2024 Albumin [Mass/Vol] 3.7 g/dL Low 3.9-4.9 [facility] Comment on above: Order Comment: Speci men Type: BLOOD SPECIMEN Ordering Facility: [facility] Address: [address] [place] [address] Performed By: #### 2 777-1, , #### [facility] CLIA [id number] [address] [place], [place] [address] [place] ALP [Catalytic activity/Vol] 77 U/L Normal 34-123 [facility] Comment on above: Order Comment: Speci men Type: BLOOD SPECIMEN Ordering Facility: [facility] Address: [address] [place] [address] Performed By: #### 2 777-1, , #### [facility] CLIA [id number] [address] [place], [place] [address] [place] ALT [Catalytic activity/Vol] 95 U/L High 7-38 [facility] Comment on above: Order Comment: Speci men Type: BLOOD SPECIMEN Ordering Facility: [facility] Address: [address] [place] [address] Performed By: #### 2 777-1, , #### [facility] CLIA [id number] [address] [place] [address] [place] Anion gap [Moles/Vol] 10 mmol/L Normal 8-15 [facility] Comment on above: Order Comment: Speci men Type: BLOOD SPECIMEN Ordering Facility: [facility] Address: [address] [place] [address] Performed By: #### 2 777-1, , #### [facility] CLIA [id number] [address] [place], [place] [address] [place] AST [Catalytic activity/Vol] 79 U/L High 13-35 [facility] Comment on above: Order Comment: Speci men Type: BLOOD SPECIMEN Ordering Facility: [facility] Address: [address] [place] [address] Performed By: #### 2 777-1, , #### [facility] CLIA [id number] [address] [place] [address] [place] Bilirubin [Mass/Vol] 0.4 mg/dL Normal 0.2-1.[address] [facility] Comment on above: Order Comment: Speci men Type: BLOOD SPECIMEN Ordering Facility: [facility] Address: [address] [place] [address] Performed By: #### 2 777-1, 28741-8, #### [facility] CLIA [id number] [address] [place] [address] [place] Calcium [Mass/Vol] 9.1 mg/dL Normal 8.5-10.2 [facility] Comment on above: Order Comment: Speci men Type: BLOOD SPECIMEN Ordering Facility: [facility] Address: [address] [place] [address] Performed By: #### 2 777-1, , #### [facility] CLIA [id number] [address] [place] [address] [place] Chloride [Moles/Vol] 106 mmol/L Normal 98-[address] [facility] Comment on above: Order Comment: Speci men Type: BLOOD SPECIMEN Ordering Facility: [facility] Address: [address] [place] [address] Performed By: #### 2 777-1, 09649-6, #### [facility] CLIA [id number] [address] [place] [address] [place] CO2 [Moles/Vol] 24 mmol/L Normal 22-30 [facility] Comment on above: Order Comment: Speci men Type: BLOOD SPECIMEN Ordering Facility: [facility] Address: [address] [place] [address] Performed By: #### 2 777-1, 94313-3, #### [facility] CLIA [id number] [address] [place] [address] [place] Creatinine [Mass/Vol] 1.10 mg/dL High 0.58-0.96 [facility] Comment on above: Order Comment: Anitha alex Type: BLOOD SPECIMEN Ordering Facility: [facility] Address: [address] [place] [address] Performed By: #### 2 777-1, , #### [facility] CLIA [id number] [address] [place] [address] [place] Creatinine and Glomerular filtration rate.predicted panel (S/P/Bld) 60 mL/min/1.73m??? Normal >=60 [facility] Comment on above: Order Comment: Anitha alex Type: BLOOD SPECIMEN Ordering Facility: [facility] Address: [address] [place] [address] Result Comment: Latasha mated Glomerular Filtration Rate [...] Performed By: #### 2 777-1, , #### [facility] CLIA [id number] [address] [place] [address] [place] Glucose [Mass/Vol] 102 mg/dL High 74-99 [facility] Comment on above: Order Comment: Anitha alex Type: BLOOD SPECIMEN Ordering Facility: [facility] Address: [address] [place] [address] Result Comment: The [place] [employer] (ADA) provides guidance for cutoff [...] Standards of Medical Care in Diabetes 2016, [place] [employer]. Diabetes Care. 2016.39(Suppl 1). Performed By: #### 2 777-1, , #### [facility] CLIA [id number] [address] [place] [address] [place] Potassium [Moles/Vol] 3.8 mmol/L Normal 3.7-5.1 [facility] Comment on above: Order Comment: Speci men Type: BLOOD SPECIMEN Ordering Facility: [facility] Address: [address] [place] [address] Performed By: #### 2 777-1, , #### [facility] CLIA [id number] [address] [place] [address] [place] Protein [Mass/Vol] 5.7 g/dL Low 6.3-8.0 [facility] Comment on above: Order Comment: Speci men Type: BLOOD SPECIMEN Ordering Facility: [facility] Address: [address] [place] [address] Performed By: #### 2 777-1, , #### [facility] CLIA [id number] [address] [place], [place] [address] [place] Sodium [Moles/Vol] 140 mmol/L Normal 136-144 [facility] Comment on above: Order Comment: Speci men Type: BLOOD SPECIMEN Ordering Facility: [facility] Address: [address] [place] [address] Performed By: #### 2 777-1, , #### [facility] CLIA [id number] [address] [place] [address] [place] Urea nitrogen [Mass/Vol] 19 mg/dL Normal 7-21 [facility] Comment on above: Order Comment: Speci men Type: BLOOD SPECIMEN Ordering Facility: [facility] Address: [address] [place] [address] Performed By: #### 2 777-1, 73754-6, 40423-8 #### [facility] CLIA [id number] [address] [place] [address] [place] [address] [place] MRI BRAIN WO/W [...] left IAC apex is of unclear etiology. Community Support Worker: CARLOS Transcribe Date/Time: Aug 31 2024 7:49A Dictated by : ANA BULLARD MD This examination was interpreted and the report reviewed and electronically signed by: ANA BULLARD MD on Aug 31 2024 7:54AM EST [id number] Normal [facility] Magnesium SerPl-mCncon 08-31 Magnesium [Mass/Vol] 2.1 mg/dL Normal 1.7-2.[address] [facility] Comment on above: Order Comment: Speci men Type: BLOOD SPECIMEN Ordering Facility: [facility] Address: [address] [place] [address] Performed By: #### 2 777-1, 83503-0, 98691-0 #### [facility] CLIA [id number] [address] [place] [address] [place] [address] [place] NURSING PROGon 08-31-2024 NURSING PROG HNO ID: [id number] Author: CHAZ WASHBURN RN Service: ? Author [...] August 31, 2024 TIME: 6:35 AM Normal [facility] NUTRITIONon 08-31-2024 NUTRITION HNO ID: [id number] Author: CHRISTIE KEYS DTR Service: Nutrition Therapy Author Type: Prepress Supervisor Type: Nutrition Filed: 08/31/2024 13:27 Note Text: NUTRITION THERAPY CONSTRUCTION MATERIALS TESTER NOTE SERVICE DATE: 08/31/2024 SERVICE TIME: 1230 [...] August 31, 2024 TIME: 1:27 PM Normal [facility] Phosphate SerPl-mCncon 08-31 Phosphate [Mass/Vol] 2.9 mg/dL Normal 2.7-4.[address] [facility] Comment on above: Order Comment: Speci men Type: BLOOD SPECIMEN Ordering Facility: [facility] Address: [address] [place] [address] Performed By: #### 2 777-1, 64251-6, 95440-9 #### [facility] CLIA [id number] [address] [place] [address] [place] [address] [place] ANES POSTPROC EVALon 025 ANES POSTPROC EVAL HNO ID: [id number] Author: NEGAR BUTLER MD Service: ? Author Type: Anesthesiologist Type: Anesthesia Postprocedure Evaluation Filed: 08/30/2024 17:13 Note Text: POST ANESTHESIA EVALUATION NOTE : 1970 Procedure Summary Date: 08/30/24 Room / Location: [address] Anesthesia Start: 1208 Anesthesia Stop: 1333 Procedures: REMOVAL OF TISSUE RN CRITICAL CARE(S) W/O INSERTION OF IMPLANT (Right: Breast) DEBRIDEMENT [...] August 30, 2024 TIME: 5:13 PM CSN: [id number] Normal [facility] ANES PRE-OPon 08-30-2024 ANES PRE-OP HNO ID: [id number] Author: NEGAR BUTLER MD Service: ? Author Type: Anesthesiologist Type: Anesthesia Preprocedure Evaluation Filed: 08/30/2024 12:25 Note Text: ANESTHESIOLOGY DAY OF SURGERY NOTE : 1970 Procedure Information Anesthesia Start Date/Time: 08/30/24 1208 Procedures: REMOVAL OF TISSUE RN CRITICAL CARE(S) W/O INSERTION OF IMPLANT (Right: Breast) DEBRIDEMENT MUSCLE/FASCIAFIRST 20 SQ CM OR LESS TRUNK (Left: Chest) Location: [facility]IN [facility] Surgeons: Precious Colorado MD [...] and consent discussed: yes. Patient / Responsible Libertarian agrees to proceed: yes Patient / Surrogate [...] labs, an (more content not included)... Normal [facility] BREAST MARKERSon 08-30-2024 AP BIOMARKER DISCLAIMER Normal [facility] Comment on above: Order Comment: Speci men Type: BLOOD SPECIMEN Ordering Facility: [facility] Address: [address] [place] [address] Result Comment: Jarod lorenzo Developed Test (LDT) Disclaimer: Performance characteristics of immunohistochemical, immunofluorescent, and chromogenic in-situ hybridization tests have been determined by the performing laboratory within [facility] Pathology and Laboratory Medicine Department ([facility], [facility], [facility], [facility], [facility], or [facility]) in a manner consistent with CLIA [...] appropriately. Performed By: #### 5 7021-8 #### [facility] CLIA [id number] [address] [place] [address] [place] [address] [place] AP BLOCK ID [id number] Normal [facility] Comment on above: Order Comment: Speci abi Type: BLOOD SPECIMEN Ordering Facility: [facility] Address: [address] [place] [address] Performed By: #### 5 7021-8 #### [facility] CLIA [id number] [address] [place] [address] [place] ASCO/CAP GUIDELINES FOR FIXATION MET Indeterminate Normal [facility] Comment on above: Order Comment: Speci abi Type: BLOOD SPECIMEN Ordering Facility: [facility] Address: [address] [place] [address] Performed By: #### 5 7021-8 #### [facility] CLIA [id number] [address] [place] [address] [place] BIOMARKER INTERPRETATION COMMENT AND REFERENCE RANGE Normal [facility] Comment on above: Order Comment: Anitha abi Type: BLOOD SPECIMEN Ordering Facility: [facility] Address: [address] [place] [address] Result Comment: Refe rence Range for Hormone Receptors: Staining for DC of greater than or equal to 1% of the tumor cells is considered positive. Staining for ER of 1-10% of the tumor cells is considered low positive. Staining for ER of greater than 10% of the tumor cells is considered positive. Staining for ER or DC of less than 1% is considered negative. [...] cancers. Performed By: #### 5 7021-8 #### [facility] CLIA [id number] [address] [place] [address] [place] BIOMARKER METHOD Normal [facility] Comment on above: Order Comment: Speci men Type: BLOOD SPECIMEN Ordering Facility: [facility] Address: [address] [place] [address] Result Comment: Estr ogen Receptor: Food and Drug Administration (FDA) cleared[place] Primary Antibody: SP1 Progesterone Receptor: FDA cleared: [employer], [place], [place] Primary Antibody: IE2 HER2 (ERBB2) by IHC: FDA cleared: [employer], [place], [place] Primary Antibody:4B5 The hormone receptor tests were performed and reported in accordance with the guidelines approved by the [place] Society of Clinical Oncologists and the College of [place] Pathologists. Micaela SOTO, et al. Estrogen and Progesterone Receptor Testing in Breast Cancer: [place] Society of Clinical Oncologists and the College of [place] Pathologists Guideline Update. Arch Pathol Lab Med. 2019;144(5):545-563. PMID: [id number]. The hormone receptor assays have been internally validated on decalcified tissues (for [facility] only). Estrogen and progesterone receptor results are valid if tissue was processed according to ASCO/CAP guidelines. Antibody and Detection System: [place]'s Pathway anti-HER2 rabbit monoclonal antibody (clone 4B5), [place] Confirm anti-estrogen receptor rabbit monoclonal antibody (clone SP1) and [place] anti-progesterone receptor rabbit monoclonal antibody (clone IE2) detected with the [employer] UltraView Univeral DAB Detection Kit (indirect biotin-free detection), [employer], [place], [place]. Control Slides: Cell line controls with high, equivocal, low, and negative HER2 protein expression, along with known positive control tissue and the patient's tissue, are evaluated for HER2 expression. The HER2 immunohistochemistry assay was developed, validated, scored, and reported in accordance with the guidelines approved by the [place] Society of Clinical Oncologists and the College of [place] Pathologists. Bacilio SIEGEL et al. Arch Pathol Lab Med. 2018;1379(9) The HER2 assay has not been validated on decalcified tissues. Given the possibility of false negative results on decalcified specimens, results should be interpreted with caution. Performed By: #### 5 7021-8 #### [facility] CLIA [id number] [address] [place] [address] [place] BREAST TUMOR GRADE Not Graded Normal [facility] Comment on above: Order Comment: Speci men Type: BLOOD SPECIMEN Ordering Facility: [facility] Address: [address] [place] [address] Performed By: #### 5 7021-8 #### [facility] CLIA [id number] [address] [place] [address] [place] [facility] CASE NUMBER INVASIVE [id number] Normal [facility] Comment on above: Order Comment: Speci men Type: BLOOD SPECIMEN Ordering Facility: [facility] Address: [address] [place] [address] Performed By: #### 5 7021-8 #### [facility] CLIA [id number] [address] [place] [address] [place] COLD ISCHEMIA TIME Not Provided Normal [facility] Comment on above: Order Comment: Speci men Type: BLOOD SPECIMEN Ordering Facility: [facility] Address: [address] [place] [address] Performed By: #### 5 7021-8 #### [facility] CLIA [id number] [address] [place], [place] [address] [place] ESTROGEN RECEPTOR (% TUMOR STAINING) 5 Normal [facility] Comment on above: Order Comment: Speci men Type: BLOOD SPECIMEN Ordering Facility: [facility] Address: [address] [place], [place] [address] Performed By: #### 5 7021-8 #### [facility] CLIA [id number] [address] [address] [place] ESTROGEN RECEPTOR (STAINING INTENSITY) Weak Normal [facility] Comment on above: Order Comment: Speci men Type: BLOOD SPECIMEN Ordering Facility: [facility] Address: [address] [place], [place] [address] Performed By: #### 5 7021-8 #### [facility] CLIA [id number] [address] [place], [place] [address] [place] ESTROGEN RECEPTOR EXTERNAL CONTROL Present and Stained as Expected Normal [facility] Comment on above: Order Comment: Speci men Type: BLOOD SPECIMEN Ordering Facility: [facility] Address: [address] [place] [address] Performed By: #### 5 7021-8 #### [facility] CLIA [id number] [address] [place] [address] [place] ESTROGEN RECEPTOR INTERNAL CONTROL Absent Normal [facility] Comment on above: Order Comment: Speci men Type: BLOOD SPECIMEN Ordering Facility: [facility] Address: [address] [place], [place] [address] Performed By: #### 5 7021-8 #### [facility] CLIA [id number] [address] [place] [address] [place] ESTROGEN RECEPTOR STATUS (INVASIVE) Positive Normal [facility] Comment on above: Order Comment: Speci men Type: BLOOD SPECIMEN Ordering Facility: [facility] Address: [address] [place] [address] Performed By: #### 5 7021-8 #### [facility] CLIA [id number] [address] [place], [place] [address] [place] FIXATIVE Formalin, 10% Neutra l Buffered Normal [facility] Comment on above: Order Comment: Speci men Type: BLOOD SPECIMEN Ordering Facility: [facility] Address: [address] [place], [place] [address] Performed By: #### 5 7021-8 #### [facility] CLIA [id number] [address] [place] [address] [place] HER2 SCORE 0 Normal [facility] Comment on above: Order Comment: Speci men Type: BLOOD SPECIMEN Ordering Facility: [facility] Address: [address] [place] [address] Result Comment: HER2 Ultralow assessment for HER2 [...] POLLARD, Alissa JA, Mary H, Deya HeardY, Hank Q, Elena C, Andreas L, Oliver J, Im SA, L???danish C, Praveen W, Sera N, Fabio Heard, Rodrigo G, Gilma G; [id number] Trial Investigators. Trastuzumab Deruxtecan after Endocrine Therapy in Metastatic Breast Cancer. N Engl J Med. 2023Nov 14. doi: 10.1056/IZIAoz9003656. Epub ahead of print. PMID: [id number]. Sedrick Jaramillo, Amando Heard, Bill B, Azra A, John B, Mayco H, Yoshi E, Harpreet N, Pankaj C. Development and Validation of a HER2-Low Focused Immunohistochemical Scoring System With High-Interobserver Concordance: The [place] HER2-Low Breast Cancer Concordance Study. Mod Pathol. 2023;37(8):038158. doi: 10.1016/j.modpat.2023.816499. Ep2023Aug 07. PMID: [id number]. Performed By: #### 5 7021-8 #### [facility] CLIA [id number] [address] [place] [address] [place] HER2 STATUS (INVASIVE) Negative Normal [facility] Comment on above: Order Comment: Speci men Type: BLOOD SPECIMEN Ordering Facility: [facility] Address: [address] [place] [address] Performed By: #### 5 7021-8 #### [facility] CLIA [id number] [address] [place] [address] [place] PROGESTERONE RECEPTOR (% TUMOR STAINING) 0 Normal [facility] Comment on above: Order Comment: Speci men Type: BLOOD SPECIMEN Ordering Facility: [facility] Address: [address] [place], [place] [address] Performed By: #### 5 7021-8 #### [facility] CLIA [id number] [address] [place] [address] [place] PROGESTERONE RECEPTOR (STAINING INTENSITY) Not Applicable Normal [facility] Comment on above: Order Comment: Speci men Type: BLOOD SPECIMEN Ordering Facility: [facility] Address: [address] [place], [place] [address] Performed By: #### 5 7021-8 #### [facility] CLIA [id number] [address] [place] [address] [place] PROGESTERONE RECEPTOR EXTERNAL CONTROL Present and Stained as Expected Normal [facility] Comment on above: Order Comment: Speci men Type: BLOOD SPECIMEN Ordering Facility: [facility] Address: [address] [place], [place] [address] Performed By: #### 5 7021-8 #### [facility] CLIA [id number] [address] [place] [address] [place] PROGESTERONE RECEPTOR INTERNAL CONTROL Absent Normal [facility] Comment on above: Order Comment: Speci men Type: BLOOD SPECIMEN Ordering Facility: [facility] Address: [address] [place], [place] [address] Performed By: #### 5 7021-8 #### [facility] CLIA [id number] [address] [place] [address] [place] PROGESTERONE RECEPTOR STATUS (INVASIVE) Negative Normal [facility] Comment on above: Order Comment: Speci men Type: BLOOD SPECIMEN Ordering Facility: [facility] Address: [address] [place] [address] Performed By: #### 5 7021-8 #### [facility] CLIA [id number] [address] [place], [place] [address] [place] TOTAL FIXATION TIME Not Provided Normal [facility] Comment on above: Order Comment: Speci men Type: BLOOD SPECIMEN Ordering Facility: [facility] Address: [address] [place] [address] Performed By: #### 5 7021-8 #### [facility] CLIA [id number] [address] [place] [address] [place] TUMOR TYPE (INVASIVE) Carcinoma Normal [facility] Comment on above: Order Comment: Speci men Type: BLOOD SPECIMEN Ordering Facility: [facility] Address: [address] [place] [address] Performed By: #### 5 7021-8 #### [facility] CLIA [id number] [address] [place], [place] [address] [place] WAS SPECIMEN DECALCIFIED No Normal [facility] Comment on above: Order Comment: Speci men Type: BLOOD SPECIMEN Ordering Facility: [facility] Address: [address] [place] [address] Performed By: #### 5 7021-8 #### [facility] CLIA [id number] [address] [place], [place] [address] [place] CBC W Auto Differential pane l (Bld)on 08-30-2024 Basophils (Bld) [#/Vol] 10*3/uL Normal <0.11 [facility] Comment on above: Order Comment: Speci men Type: BLOOD SPECIMEN Ordering Facility: [facility] Address: [address] [place] [address] Performed By: #### 5 7021-8 #### [facility] CLIA [id number] [address] [place] Basophils/100 WBC (Bld) 0.1 % Normal [facility] Comment on above: Order Comment: Speci men Type: BLOOD SPECIMEN Ordering Facility: [facility] Address: [address] [place] [address] Performed By: #### 5 7021-8 #### [facility] CLIA [id number] [address] [place] [address] [place] Differential cell count method Nom (Bld) Auto Normal [facility] Comment on above: Order Comment: Speci men Type: BLOOD SPECIMEN Ordering Facility: [facility] Address: [address] [place] [address] Performed By: #### 5 7021-8 #### [facility] CLIA [id number] [address] [place] [address] [place] Eosinophils (Bld) [#/Vol] 10*3/uL Normal <0.46 [facility] Comment on above: Order Comment: Speci men Type: BLOOD SPECIMEN Ordering Facility: [facility] Address: [address] [place] [address] Performed By: #### 5 7021-8 #### [facility] CLIA [id number] [address] [place] [address] [place] Eosinophils/100 WBC (Bld) 0.0 % Normal [facility] Comment on above: Order Comment: Speci men Type: BLOOD SPECIMEN Ordering Facility: [facility] Address: [address] [place] [address] Performed By: #### 5 7021-8 #### [facility] CLIA [id number] [address] [place] [address] [place] Erythrocyte distribution width (RBC) [Ratio] 19.4 % High 11.5-15.0 [facility] Comment on above: Order Comment: Speci men Type: BLOOD SPECIMEN Ordering Facility: [facility] Address: [address] [place] [address] Performed By: #### 5 7021-8 #### [facility] CLIA [id number] [address] [place] [address] [place] Hematocrit (Bld) [Volume fraction] 27.7 % Low 36.0-46.0 [facility] Comment on above: Order Comment: Speci men Type: BLOOD SPECIMEN Ordering Facility: [facility] Address: [address] [place] [address] Performed By: #### 5 7021-8 #### [facility] CLIA [id number] [address] [place] [address] [place] Hemoglobin (Bld) [Mass/Vol] 9.4 g/dL Low 11.5-15.5 [facility] Comment on above: Order Comment: Speci men Type: BLOOD SPECIMEN Ordering Facility: [facility] Address: [address] [place] [address] Performed By: #### 5 7021-8 #### [facility] CLIA [id number] [address] [place] [address] [place] Immature granulocytes (Bld) [#/Vol] 0.11 10*3/uL High <0.10 [facility] Comment on above: Order Comment: Speci men Type: BLOOD SPECIMEN Ordering Facility: [facility] Address: [address] [place] [address] Performed By: #### 5 7021-8 #### [facility] CLIA [id number] [address] [place] [address] [place] Immature granulocytes/100 WBC (Bld) 1.2 % Normal [facility] Comment on above: Order Comment: Speci men Type: BLOOD SPECIMEN Ordering Facility: [facility] Address: [address] [place] [address] Performed By: #### 5 7021-8 #### [facility] CLIA [id number] [address] [place] [address] [place] Lymphocytes (Bld) [#/Vol] 1.09 10*3/uL Normal 1.00-4.00 [facility] Comment on above: Order Comment: Speci men Type: BLOOD SPECIMEN Ordering Facility: [facility] Address: [address] [place] [address] Performed By: #### 5 7021-8 #### [facility] CLIA [id number] [address] [place] [address] [place] Lymphocytes/100 WBC (Bld) 11.6 % Normal [facility] Comment on above: Order Comment: Speci men Type: BLOOD SPECIMEN Ordering Facility: [facility] Address: [address] [place] [address] Performed By: #### 5 7021-8 #### [facility] CLIA [id number] [address] [place] [address] [place] MCH (RBC) [Entitic mass] 32.8 pg Normal 26.0-34.0 [facility] Comment on above: Order Comment: Speci men Type: BLOOD SPECIMEN Ordering Facility: [facility] Address: [address] [place] [address] Performed By: #### 5 7021-8 #### [facility] CLIA [id number] [address] [place] [address] [place] MCHC (RBC) [Mass/Vol] 33.9 g/dL Normal 30.5-36.0 [facility] Comment on above: Order Comment: Speci men Type: BLOOD SPECIMEN Ordering Facility: [facility] Address: [address] [place] [address] Performed By: #### 5 7021-8 #### [facility] CLIA [id number] [address] [place] [address] [place] MCV (RBC) [Entitic vol] 96.5 fL Normal 80.0-100.0 [facility] Comment on above: Order Comment: Speci men Type: BLOOD SPECIMEN Ordering Facility: [facility] Address: [address] [place] [address] Performed By: #### 5 7021-8 #### [facility] CLIA [id number] [address] [place] [address] [place] Monocytes (Bld) [#/Vol] 0.32 10*3/uL Normal <0.87 [facility] Comment on above: Order Comment: Speci men Type: BLOOD SPECIMEN Ordering Facility: [facility] Address: [address] [place] [address] Performed By: #### 5 7021-8 #### [facility] CLIA [id number] [address] [place] [address] [place] Monocytes/100 WBC (Bld) 3.4 % Normal [facility] Comment on above: Order Comment: Speci men Type: BLOOD SPECIMEN Ordering Facility: [facility] Address: [address] [place] [address] Performed By: #### 5 7021-8 #### [facility] CLIA [id number] [address] [place] [address] [place] Neutrophils (Bld) [#/Vol] 7.83 10*3/uL High 1.45-7.50 [facility] Comment on above: Order Comment: Speci men Type: BLOOD SPECIMEN Ordering Facility: [facility] Address: [address] [place] [address] Performed By: #### 5 7021-8 #### [facility] CLIA [id number] [address] [place] [address] [place] Neutrophils/100 WBC (Bld) 83.7 % Normal [facility] Comment on above: Order Comment: Speci men Type: BLOOD SPECIMEN Ordering Facility: [facility] Address: [address] [place] [address] Performed By: #### 5 7021-8 #### [facility] CLIA [id number] [address] [place] [address] [place] Nucleated RBC (Bld) [#/Vol] 10*3/uL Normal <0.01 [facility] Comment on above: Order Comment: Speci men Type: BLOOD SPECIMEN Ordering Facility: [facility] Address: [address] [place] [address] Performed By: #### 5 7021-8 #### [facility] CLIA [id number] [address] [place] [address] [place] Nucleated RBC/100 WBC (Bld) [Ratio] 0.0 /100 WBC Normal [facility] Comment on above: Order Comment: Speci men Type: BLOOD SPECIMEN Ordering Facility: [facility] Address: [address] [place] [address] Performed By: #### 5 7021-8 #### [facility] CLIA [id number] [address] [place] [address] [place] Platelet mean volume (Bld) [Entitic vol] 9.6 fL Normal 9.0-12.7 [facility] Comment on above: Order Comment: Speci men Type: BLOOD SPECIMEN Ordering Facility: [facility] Address: [address] [place] [address] Performed By: #### 5 7021-8 #### [facility] CLIA [id number] [address] [place] [address] [place] Platelets (Bld) [#/Vol] 242 10*3/uL Normal 150-400 [facility] Comment on above: Order Comment: Speci men Type: BLOOD SPECIMEN Ordering Facility: [facility] Address: [address] [place] [address] Performed By: #### 5 7021-8 #### [facility] [facility] CLIA [id number] [address] [place] [address] [place] RBC (Bld) [#/Vol] 2.87 10*6/uL Low 3.90-5.20 [facility] Comment on above: Order Comment: Speci men Type: BLOOD SPECIMEN Ordering Facility: [facility] Address: [address] [place] [address] Performed By: #### 5 7021-8 #### [facility] CLIA [id number] [address] [place] [address] [place] WBC (Bld) [#/Vol] 9.36 10*3/uL Normal 3.70-11.00 [facility] Comment on above: Order Comment: Speci men Type: BLOOD SPECIMEN Ordering Facility: [facility] Address: [address] [place] [address] Performed By: #### 5 7021-8 #### [facility] CLIA [id number] [address] [place] [address] [place] Comprehensive metabolic 2000 panelon 08-30-2024 Albumin [Mass/Vol] 4.0 g/dL Normal 3.9-4.9 [facility] Comment on above: Order Comment: Speci men Type: BLOOD SPECIMEN Ordering Facility: [facility] Address: [address] [place] [address] Performed By: #### 5 7021-8 #### [facility] CLIA [id number] [address] [place] [address] [place] ALP [Catalytic activity/Vol] 82 U/L Normal 34-123 [facility] Comment on above: Order Comment: Speci men Type: BLOOD SPECIMEN Ordering Facility: [facility] Address: [address] [place] [address] Performed By: #### 5 7021-8 #### [facility] CLIA [id number] [address] [place] [address] [place] ALT [Catalytic activity/Vol] 86 U/L High 7-38 [facility] Comment on above: Order Comment: Speci men Type: BLOOD SPECIMEN Ordering Facility: [facility] Address: [address] [place] [address] Performed By: #### 5 7021-8 #### [facility] CLIA [id number] [address] [place], [place] [address] [place] Anion gap [Moles/Vol] 12 mmol/L Normal 8-15 [facility] Comment on above: Order Comment: Speci men Type: BLOOD SPECIMEN Ordering Facility: [facility] Address: [address] [place] [address] Performed By: #### 5 7021-8 #### [facility] CLIA [id number] [address] [place] [address] [place] AST [Catalytic activity/Vol] 62 U/L High 13-35 [facility] Comment on above: Order Comment: Speci men Type: BLOOD SPECIMEN Ordering Facility: [facility] Address: [address] [place] [address] Performed By: #### 5 7021-8 #### [facility] CLIA [id number] [address] [place] [address] [place] Bilirubin [Mass/Vol] 0.5 mg/dL Normal 0.2-1.[address] [facility] Comment on above: Order Comment: Speci men Type: BLOOD SPECIMEN Ordering Facility: [facility] Address: [address] [place] [address] Performed By: #### 5 7021-8 #### [facility] CLIA [id number] [address] [place] [address] [place] Calcium [Mass/Vol] 9.7 mg/dL Normal 8.5-10.2 [facility] Comment on above: Order Comment: Speci men Type: BLOOD SPECIMEN Ordering Facility: [facility] Address: [address] [place] [address] Performed By: #### 5 7021-8 #### [facility] CLIA [id number] [address] [place], [place] [address] [place] Chloride [Moles/Vol] 108 mmol/L High 98-[address] [facility] Comment on above: Order Comment: Speci men Type: BLOOD SPECIMEN Ordering Facility: [facility] Address: [address] [place] [address] Performed By: #### 5 7021-8 #### [facility] CLIA [id number] [address] [place] [address] [place] CO2 [Moles/Vol] 23 mmol/L Normal 22-30 [facility] Comment on above: Order Comment: Speci men Type: BLOOD SPECIMEN Ordering Facility: [facility] Address: [address] [place] [address] Performed By: #### 5 7021-8 #### [facility] CLIA [id number] [address] [place] [address] [place] Creatinine [Mass/Vol] 1.06 mg/dL High 0.58-0.96 [facility] Comment on above: Order Comment: Speci men Type: BLOOD SPECIMEN Ordering Facility: [facility] Address: [address] [place] [address] Performed By: #### 5 7021-8 #### [facility] CLIA [id number] [address] [place] [address] [place] Creatinine and Glomerular filtration rate.predicted panel (S/P/Bld) 63 mL/min/1.73m??? Normal >=60 [facility] Comment on above: Order Comment: Speci men Type: BLOOD SPECIMEN Ordering Facility: [facility] Address: [address] [place] [address] Result Comment: Latasha mated Glomerular Filtration Rate [...] GFR. Performed By: #### 5 7021-8 #### [facility] CLIA [id number] [address] [place] [address] [place] Glucose [Mass/Vol] 113 mg/dL High 74-99 [facility] Comment on above: Order Comment: Anitha alex Type: BLOOD SPECIMEN Ordering Facility: [facility] Address: [address] [place] [address] Result Comment: The [place] Diabetes Association (ADA) provides guidance for cutoff [...] Standards of Medical Care in Diabetes 2016, [place] [employer]. Diabetes Care. 2016.39(Suppl 1). Performed By: #### 5 7021-8 #### [facility] CLIA [id number] [address] [place] [address] [place] Potassium [Moles/Vol] 4.0 mmol/L Normal 3.7-5.1 [facility] Comment on above: Order Comment: Anitha alex Type: BLOOD SPECIMEN Ordering Facility: [facility] Address: [address] [place] [address] Performed By: #### 5 7021-8 #### [facility] CLIA [id number] [address] [place], [place] [address] [place] Protein [Mass/Vol] 6.1 g/dL Low 6.3-8.0 [facility] Comment on above: Order Comment: Anitha alex Type: BLOOD SPECIMEN Ordering Facility: [facility] Address: [address] [place] [address] Performed By: #### 5 7021-8 #### [facility] CLIA [id number] [address] [place] [address] [place] Sodium [Moles/Vol] 143 mmol/L Normal 136-144 [facility] Comment on above: Order Comment: Speci men Type: BLOOD SPECIMEN Ordering Facility: [facility] Address: [address] [place] [address] Performed By: #### 5 7021-8 #### [facility] CLIA [id number] [address] [place] [address] [place] Urea nitrogen [Mass/Vol] 19 mg/dL Normal 7-21 [facility] Comment on above: Order Comment: Speci men Type: BLOOD SPECIMEN Ordering Facility: [facility] Address: [address] [place] [address] Performed By: #### 5 7021-8 #### [facility] CLIA [id number] [address] [place] [address] [place] Magnesium SerPl-mCncon 08-30 Magnesium [Mass/Vol] 2.0 mg/dL Normal 1.7-2.[address] [facility] Comment on above: Order Comment: Speci men Type: BLOOD SPECIMEN Ordering Facility: [facility] Address: [address] [place] [address] Performed By: #### 2 777-1, 39319-2, 54342-2 #### [facility] CLIA [id number] [address] [place] [address] [place] OPERATIVE NOon 08-30-2024 OPERATIVE NO HNO ID: [id number] Author: PRECIOUS COLORADO MD Service: Plastic Surgery Author Type: Physician Type: Operative Report Filed: 08/30/2024 13:04 Note Text: PLASTIC SURGERY OPERATION NOTE LOG ID: [id number] Surgery/Procedure Date: 08/30/2024 Incision/Procedure Start Time: 12:39 PM Incision Close/Procedure End Time: Surgeon(s)/Procedurali st(s) and Counter Helper(s): Surgeons and Role: * Precious Colorado MD - Primary * Ora, Deena, DO - Resident - Assisting * Ralph Durbin MD - Resident - Assisting Procedure(s): 1. Excisional biopsy right breast skin 2. Explantation of right breast tissue equine science instructor intact 3. Debridement of right breast pocket for closure and 20 x 20 cm Anesthesia: General Findings: Intact textured implant Indications: This is a 53-year-old female who presented with concern for brain metastasis requiring additional intervention. She had 2 port tissue equine science instructor in place and was unable to get appropriate workup in order to complete treatment assessment. Is recommended she undergo tissue equine science instructor removal. Response alternatives were present including bleeding, [...] capsule and noted an intact textured Sientra equine science instructor. This was perforated with a 15 blade scalpel and the fluid was injected. The equine science instructor was removed without difficulty. There is no other concerning lesions and the capsule was otherwise intact. Capsule was extensively fully fulgurated with a electrocautery tip in order to facilitate closure. The incision was infiltrated with local anesthesia. We then placed a 15 Slovenian helpless Garfield drain within the wound bed [...] 08/30/2024 12:40 PM B : right breast equine science instructor Implant/Device/Foreign Body Hardware/Device/Foreig n Body SURGICAL PATHOLOGY Precious Colorado MD 08/30/2024 12:41 PM Complications: None Pre-Op/Pre-Procedure Diagnosis: s/p right breast tissue equine science instructor incompatible with MRI Post-Op/Post-Procedure Diagnosis: Same as above SIGNATURE: Precious Colorado MD PATIENT NAME: Ike Flannery DATE: August 30, 2024 TIME: 1:00 PM PAGER/CONTACT #: Normal [facility] Pathology biopsy report Fredrick (Tiss)on 08-30-2024 AP DISCLAIMER Normal [facility] Comment on above: Order Comment: Speci men Type: BLOOD SPECIMEN Ordering Facility: [facility] Address: [address] [place] [address] Result Comment: Jarod lorenzo Developed Test (LDT) Disclaimer: Performance characteristics of immunohistochemical, immunofluorescent, and chromogenic in-situ hybridization tests have been determined by the performing laboratory within [facility] Pathology and Laboratory Medicine Department ([facility], [facility], [facility], [facility], [facility], or [facility]) in a manner consistent with CLIA [...] appropriately. Performed By: #### 5 7021-8 #### [facility] CLIA [id number] [address] [place] [address] [place] CASE REPORT Normal [facility] Comment on above: Order Comment: Speci men Type: BLOOD SPECIMEN Ordering Facility: [facility] Address: [address] [place] [address] Result Comment: Surg ical Pathology Report Case: [id number] Authorizing Provider: Precious Colorado MD Collected: 08/30/2024 12:40 PM Ordering Location: Admitting Received: 08/30/2024 01:02 PM Pathologist: Tracie Hutchinson MD Specimens: A) - Soft Tissue (Not otherwise specified), right breast skin B) - Hardware/Device/Foreign Body, right breast equine science instructor Performed By: #### 5 7021-8 #### [facility] IA [id number] [address] [place] [address] CLINICAL HISTORY Normal [facility] Comment on above: Order Comment: Speci men Type: BLOOD SPECIMEN Ordering Facility: [facility] Address: [address] [place] [address] Result Comment: Pre- op diagnosis: Cancer (HCC) [C80.1] History of reconstruction of both breasts [Z98.890] Performed By: #### 5 7021-8 #### [facility] IA [id number] [address] [place] [address] DIAGNOSIS COMMENT The morphologic features are compatible with breast origin. The lesion measures up to 10 mm and extends to inked specimen margins. ER, DC and HER2 are pending and will be reported separately. Normal [facility] Comment on above: Order Comment: Speci abi Type: BLOOD SPECIMEN Ordering Facility: [facility] Address: [address] [place] [address] Performed By: #### 5 7021-8 #### [facility] IA [id number] [address] [place] [address] FINAL DIAGNOSIS Normal [facility] Comment on above: Order Comment: Speci men Type: BLOOD SPECIMEN Ordering Facility: [facility] Address: [address] [place] [address] Result Comment: A. R ight breast skin, excision: - Carcinoma involving dermis, see comment. B. Right breast, equine science instructor removal: - Grossly unremarkable, collapsed, textured equine science instructor (Gross examination only). SS/MLG at 1420 EDT Performed By: #### 5 7021-8 #### [facility] IA [id number] [address] [place] [address] [place] GROSS DESCRIPTION Normal [facility] Comment on above: Order Comment: Speci men Type: BLOOD SPECIMEN Ordering Facility: [facility] Address: [address] [place] [address] Result Comment: A. S oft Tissue (Not [...] 08/30/24 4:17 PM [place] [address] B. Hardware/Device/Foreign Body Received fresh labeled as right breast tissue equine science instructor is a collapsed textured equine science instructor weighing 144.10 g and measuring 15.0 x 14.0 x 2.0 cm with the following inscription ALLOX2 SIENTRA FH 14 . No soft tissue is present. No sections are submitted. The specimen is reviewed with Dr. Kerns. Gross examination only. MLG 08/30/24 1:20 PM [place] [address] Performed By: #### 5 7021-8 #### [facility] IA [id number] [address] [place] [address] [place] Phosphate SerPl-mCncon 08-30 Phosphate [Mass/Vol] 3.1 mg/dL Normal 2.7-4.[address] [facility] Comment on above: Order Comment: Speci men Type: BLOOD SPECIMEN Ordering Facility: [facility] Address: [address] [place] [address] Performed By: #### 2 777-1, 25265-8, 45625-3 #### [facility] CLIA [id number] [address] [place] [address] [place] Tiss Path Bx reporton 2024 FINAL PERFORMING LAB Normal [facility] Comment on above: Order Comment: Speci men Type: BLOOD SPECIMEN Ordering Facility: [facility] Address: [address] [place] [address] Result Comment: Diag nostic interpretation performed at: [facility], [address] [place], [place] [address] CLIA# [id number] Laboratory Immunologist: Derick Meadows MD Performed By: #### 5 7021-8 #### [facility] CLIA [id number] [address] [place] [address] STATES [facility] Result Comment: Diag nostic interpretation performed at: [facility], [address] [place], [place] [address] CLIA# [id number] Laboratory Immunologist: Derick Meadows MD Electronically signed out by: Tracie Hutchinson MD CBC W Auto Differential pane l (Bld)on 08-29-2024 Basophils (Bld) [#/Vol] 10*3/uL Normal <0.11 [facility] Comment on above: Order Comment: Speci men Type: BLOOD SPECIMEN Ordering Facility: [facility] Address: [address] [place] [address] Performed By: #### 5 7021-8 #### [facility] CLIA [id number] [address] [place] [address] [place] Basophils/100 WBC (Bld) 0.1 % Normal [facility] Comment on above: Order Comment: Speci men Type: BLOOD SPECIMEN Ordering Facility: [facility] Address: [address] [place] [address] Performed By: #### 5 7021-8 #### [facility] CLIA [id number] [address] [place] [address] [place] Differential cell count method Nom (Bld) Auto Normal [facility] Comment on above: Order Comment: Speci men Type: BLOOD SPECIMEN Ordering Facility: [facility] Address: [address] [place] [address] Performed By: #### 5 7021-8 #### [facility] CLIA [id number] [address] [place] [address] [place] Eosinophils (Bld) [#/Vol] 10*3/uL Normal <0.46 [facility] Comment on above: Order Comment: Speci men Type: BLOOD SPECIMEN Ordering Facility: [facility] Address: [address] [place] [address] Performed By: #### 5 7021-8 #### [facility] CLIA [id number] [address] [place] [address] [place] Eosinophils/100 WBC (Bld) 0.0 % Normal [facility] Comment on above: Order Comment: Speci men Type: BLOOD SPECIMEN Ordering Facility: [facility] Address: [address] [place] [address] Performed By: #### 5 7021-8 #### [facility] CLIA [id number] [address] [place] [address] [place] Erythrocyte distribution width (RBC) [Ratio] 19.1 % High 11.5-15.0 [facility] Comment on above: Order Comment: Speci men Type: BLOOD SPECIMEN Ordering Facility: [facility] Address: [address] [place] [address] Performed By: #### 5 7021-8 #### [facility] CLIA [id number] [address] [place] [address] [place] Hematocrit (Bld) [Volume fraction] 27.1 % Low 36.0-46.0 [facility] Comment on above: Order Comment: Speci men Type: BLOOD SPECIMEN Ordering Facility: [facility] Address: [address] [place] [address] Performed By: #### 5 7021-8 #### [facility] CLIA [id number] [address] [place] [address] [place] Hemoglobin (Bld) [Mass/Vol] 9.1 g/dL Low 11.5-15.5 [facility] Comment on above: Order Comment: Speci men Type: BLOOD SPECIMEN Ordering Facility: [facility] Address: [address] [place] [address] Performed By: #### 5 7021-8 #### [facility] CLIA [id number] [address] [place] [address] [place] Immature granulocytes (Bld) [#/Vol] 0.08 10*3/uL Normal <0.10 [facility] Comment on above: Order Comment: Speci men Type: BLOOD SPECIMEN Ordering Facility: [facility] Address: [address] [place] [address] Performed By: #### 5 7021-8 #### [facility] CLIA [id number] [address] [place] [address] [place] Immature granulocytes/100 WBC (Bld) 0.8 % Normal [facility] Comment on above: Order Comment: Speci men Type: BLOOD SPECIMEN Ordering Facility: [facility] Address: [address] [place] [address] Performed By: #### 5 7021-8 #### [facility] CLIA [id number] [address] [place] [address] [place] Lymphocytes (Bld) [#/Vol] 0.90 10*3/uL Low 1.00-4.00 [facility] Comment on above: Order Comment: Speci men Type: BLOOD SPECIMEN Ordering Facility: [facility] Address: [address] [place] [address] Performed By: #### 5 7021-8 #### [facility] CLIA [id number] [address] [place] [address] [place] Lymphocytes/100 WBC (Bld) 9.1 % Normal [facility] Comment on above: Order Comment: Speci men Type: BLOOD SPECIMEN Ordering Facility: [facility] Address: [address] [place] [address] Performed By: #### 5 7021-8 #### [facility] CLIA [id number] [address] [place] [address] [place] MCH (RBC) [Entitic mass] 31.9 pg Normal 26.0-34.0 [facility] Comment on above: Order Comment: Speci men Type: BLOOD SPECIMEN Ordering Facility: [facility] Address: [address] [place] [address] Performed By: #### 5 7021-8 #### [facility] CLIA [id number] [address] [place] [address] [place] MCHC (RBC) [Mass/Vol] 33.6 g/dL Normal 30.5-36.0 [facility] Comment on above: Order Comment: Speci men Type: BLOOD SPECIMEN Ordering Facility: [facility] Address: [address] [place] [address] Performed By: #### 5 7021-8 #### [facility] CLIA [id number] [address] [place] [address] [place] MCV (RBC) [Entitic vol] 95.1 fL Normal 80.0-100.0 [facility] Comment on above: Order Comment: Speci men Type: BLOOD SPECIMEN Ordering Facility: [facility] Address: [address] [place] [address] Performed By: #### 5 7021-8 #### [facility] CLIA [id number] [address] [place] [address] [place] Monocytes (Bld) [#/Vol] 0.43 10*3/uL Normal <0.87 [facility] Comment on above: Order Comment: Speci men Type: BLOOD SPECIMEN Ordering Facility: [facility] Address: [address] [place] [address] Performed By: #### 5 7021-8 #### [facility] CLIA [id number] [address] [place] [address] [place] Monocytes/100 WBC (Bld) 4.4 % Normal [facility] Comment on above: Order Comment: Speci men Type: BLOOD SPECIMEN Ordering Facility: [facility] Address: [address] [place] [address] Performed By: #### 5 7021-8 #### [facility] CLIA [id number] [address] [place] [address] [place] Neutrophils (Bld) [#/Vol] 8.44 10*3/uL High 1.45-7.50 [facility] Comment on above: Order Comment: Speci men Type: BLOOD SPECIMEN Ordering Facility: [facility] Address: [address] [place] [address] Performed By: #### 5 7021-8 #### [facility] CLIA [id number] [address] [place] [address] [place] Neutrophils/100 WBC (Bld) 85.6 % Normal [facility] Comment on above: Order Comment: Speci men Type: BLOOD SPECIMEN Ordering Facility: [facility] Address: [address] [place] [address] Performed By: #### 5 7021-8 #### [facility] CLIA [id number] [address] [place] [address] [place] Nucleated RBC (Bld) [#/Vol] 10*3/uL Normal <0.01 [facility] Comment on above: Order Comment: Speci men Type: BLOOD SPECIMEN Ordering Facility: [facility] Address: [address] [place] [address] Performed By: #### 5 7021-8 #### [facility] CLIA [id number] [address] [place] [address] [place] Nucleated RBC/100 WBC (Bld) [Ratio] 0.0 /100 WBC Normal [facility] Comment on above: Order Comment: Speci men Type: BLOOD SPECIMEN Ordering Facility: [facility] Address: [address] [place] [address] Performed By: #### 5 7021-8 #### [facility] CLIA [id number] [address] [place] [address] [place] Platelet mean volume (Bld) [Entitic vol] 9.2 fL Normal 9.0-12.7 [facility] Comment on above: Order Comment: Speci men Type: BLOOD SPECIMEN Ordering Facility: [facility] Address: [address] [place] [address] Performed By: #### 5 7021-8 #### [facility] CLIA [id number] [address] [place] [address] [place] Platelets (Bld) [#/Vol] 242 10*3/uL Normal 150-400 [facility] Comment on above: Order Comment: Speci men Type: BLOOD SPECIMEN Ordering Facility: [facility] Address: [address] [place] [address] Performed By: #### 5 7021-8 #### [facility] CLIA [id number] [address] [place] [address] [place] RBC (Bld) [#/Vol] 2.85 10*6/uL Low 3.90-5.20 [facility] Comment on above: Order Comment: Speci men Type: BLOOD SPECIMEN Ordering Facility: [facility] Address: [address] [place] [address] Performed By: #### 5 7021-8 #### [facility] CLIA [id number] [address] [place] [address] [place] WBC (Bld) [#/Vol] 9.86 10*3/uL Normal 3.70-11.00 [facility] Comment on above: Order Comment: Speci men Type: BLOOD SPECIMEN Ordering Facility: [facility] Address: [address] [place] [address] Performed By: #### 5 7021-8 #### [facility] CLIA [id number] [address] [place] [address] CONSULTon 08-29-2024 CONSULT HNO ID: [id number] Author: RJ KERR APRN.ADMINISTRATIVE PROCESSOR Service: Wound Care Team Author Type: Clinical [...] if recommendations are needed. Rj Kerr, MSN, WEB DEVELOPMENT INSTRUCTOR, ACNS-BC, CWOCN [phone] Normal [facility] CONSULT PROGon 08-29-2024 CONSULT PROG HNO ID: [id number] Author: CHRISTY DA SILVA MD Service: Infectious [...] D5W 50 mL 900 mg, INTRAVENOUS, EVERY MON-WED-FRI -- 08/26/24 1500 imipenem-cilastatin 1 g in [...] is a 53 year old female from [facility] with -HTN -anemia -LLE DVT on Eliquis -R breast cancer 04/2023 s/p chemo x 16 cycles through 09/29/2023 followed by bilateral mastectomy with b/l expanders c/b L sided seroma -10/2023 bilateral skin sparing mastectomies and tissue explander reconstruction complicated by infected seroma L side - 11/27/2023 : Left breast IANDD and equine science instructor removal - 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 Treated by ID (Dr Noguera in [place]) with Amikacin 750 mg MWF, Imipenem 1 [...] to [facility] for management. Needs right tissue equine science instructor to be removed in order to get MRI in order to be evaluated for radiation therapy. Planned for (more content not included)... Normal [facility] Comprehensive metabolic 2000 panelon 08-29-2024 Albumin [Mass/Vol] 3.9 g/dL Normal 3.9-4.9 [facility] Comment on above: Order Comment: Speci abi Type: BLOOD SPECIMEN Ordering Facility: [facility] Address: [address] [place] [address] Performed By: #### 5 7021-8 #### [facility] CLIA [id number] [address] [place] [address] [place] ALP [Catalytic activity/Vol] 86 U/L Normal 34-123 [facility] Comment on above: Order Comment: Speci abi Type: BLOOD SPECIMEN Ordering Facility: [facility] Address: [address] [place] [address] Performed By: #### 5 7021-8 #### [facility] CLIA [id number] [address] [place] [address] [place] ALT [Catalytic activity/Vol] 72 U/L High 7-38 [facility] Comment on above: Order Comment: Speci men Type: BLOOD SPECIMEN Ordering Facility: [facility] Address: [address] [place] [address] Performed By: #### 5 7021-8 #### [facility] CLIA [id number] [address] [id number] [address] [place] Anion gap [Moles/Vol] 13 mmol/L Normal 8-15 [facility] Comment on above: Order Comment: Speci men Type: BLOOD SPECIMEN Ordering Facility: [facility] Address: [address] [place] [address] Performed By: #### 5 7021-8 #### [facility] CLIA [id number] [address] [place] [address] [place] AST [Catalytic activity/Vol] 51 U/L High 13-35 [facility] Comment on above: Order Comment: Speci men Type: BLOOD SPECIMEN Ordering Facility: [facility] Address: [address] [place] [address] Performed By: #### 5 7021-8 #### [facility] CLIA [id number] [address] [place] [address] [place] Bilirubin [Mass/Vol] 0.5 mg/dL Normal 0.2-1.[address] [facility] Comment on above: Order Comment: Speci men Type: BLOOD SPECIMEN Ordering Facility: [facility] Address: [address] [place] [address] Performed By: #### 5 7021-8 #### [facility] CLIA [id number] [address] [place] [address] [place] Calcium [Mass/Vol] 9.2 mg/dL Normal 8.5-10.2 [facility] Comment on above: Order Comment: Speci men Type: BLOOD SPECIMEN Ordering Facility: [facility] Address: [address] [place] [address] Performed By: #### 5 7021-8 #### [facility] CLIA [id number] [address] [place] [address] [place] Chloride [Moles/Vol] 109 mmol/L High 98-[address] [facility] Comment on above: Order Comment: Speci men Type: BLOOD SPECIMEN Ordering Facility: [facility] Address: [address] [place] [address] Performed By: #### 5 7021-8 #### [facility] CLIA [id number] [address] [place] [address] [place] CO2 [Moles/Vol] 21 mmol/L Low 22-30 [facility] Comment on above: Order Comment: Speci men Type: BLOOD SPECIMEN Ordering Facility: [facility] Address: [address] [place] [address] Performed By: #### 5 7021-8 #### [facility] CLIA [id number] [address] [place] [address] [place] Creatinine [Mass/Vol] 1.09 mg/dL High 0.58-0.96 [facility] Comment on above: Order Comment: Speci men Type: BLOOD SPECIMEN Ordering Facility: [facility] Address: [address] [place] [address] Performed By: #### 5 7021-8 #### [facility] CLIA [id number] [address] [place] [address] [place] Creatinine and Glomerular filtration rate.predicted panel (S/P/Bld) 61 mL/min/1.73m??? Normal >=60 [facility] Comment on above: Order Comment: Speci men Type: BLOOD SPECIMEN Ordering Facility: [facility] Address: [address] [place] [address] Result Comment: Latasha mated Glomerular Filtration Rate [...] GFR. Performed By: #### 5 7021-8 #### [facility] CLIA [id number] [address] [place] [address] [place] Glucose [Mass/Vol] 104 mg/dL High 74-99 [facility] Comment on above: Order Comment: Anitha alex Type: BLOOD SPECIMEN Ordering Facility: [facility] Address: [address] [place] [address] Result Comment: The [place] Diabetes Association (ADA) provides guidance for cutoff [...] Standards of Medical Care in Diabetes 2016, [place] [employer]. Diabetes Care. 2016.39(Suppl 1). Performed By: #### 5 7021-8 #### [facility] CLIA [id number] [address] [place] [address] [place] Potassium [Moles/Vol] 3.8 mmol/L Normal 3.7-5.1 [facility] Comment on above: Order Comment: Anitha alex Type: BLOOD SPECIMEN Ordering Facility: [facility] Address: [address] [place] [address] Performed By: #### 5 7021-8 #### [facility] CLIA [id number] [address] [place] [address] [place] Protein [Mass/Vol] 5.9 g/dL Low 6.3-8.0 [facility] Comment on above: Order Comment: Anitha alex Type: BLOOD SPECIMEN Ordering Facility: [facility] Address: [address] [place] [address] Performed By: #### 5 7021-8 #### [facility] CLIA [id number] [address] [place] [address] [place] Sodium [Moles/Vol] 143 mmol/L Normal 136-144 [facility] Comment on above: Order Comment: Speci men Type: BLOOD SPECIMEN Ordering Facility: [facility] Address: [address] [place] [address] Performed By: #### 5 7021-8 #### [facility] CLIA [id number] [address] [place] [address] [place] Urea nitrogen [Mass/Vol] 18 mg/dL Normal 7-21 [facility] Comment on above: Order Comment: Speci men Type: BLOOD SPECIMEN Ordering Facility: [facility] Address: [address] [place] [address] Performed By: #### 5 7021-8 #### [facility] CLIA [id number] [address] [place] [address] [place] Magnesium SerPl-ncon 08-29 Magnesium [Mass/Vol] 2.0 mg/dL Normal 1.7-2.[address] [facility] Comment on above: Order Comment: Speci men Type: BLOOD SPECIMEN Ordering Facility: [facility] Address: [address] [place] [address] Performed By: #### 5 7021-8 #### [facility] CLIA [id number] [address] [place] [address] [place] Phosphate SerPl-mCncon 08-29 Phosphate [Mass/Vol] 3.8 mg/dL Normal 2.7-4.[address] [facility] Comment on above: Order Comment: Speci men Type: BLOOD SPECIMEN Ordering Facility: [facility] Address: [address] [place] [address] Performed By: #### 5 7021-8 #### [facility] CLIA [id number] [address] [place] [address] [place] ALLIED HEALTHon 08-28-2024 ALLIED HEALTH HNO ID: [id number] Author: MARY KAY UMANZOR Chaplain Service: Process Group Author Type: Cribber Type: Allied Health Filed: 08/28/2024 16:39 Note Text: The patient was anointed. Normal [facility] CBC W Auto Differential pane l (Bld)on 08-28-2024 Basophils (Bld) [#/Vol] 10*3/uL Normal <0.11 [facility] Comment on above: Order Comment: Speci men Type: BLOOD SPECIMEN Ordering Facility: [facility] Address: [address] [place] [address] Performed By: #### 5 7021-8 #### [facility] CLIA [id number] [address] [place] [address] [place] Basophils/100 WBC (Bld) 0.1 % Normal [facility] Comment on above: Order Comment: Speci men Type: BLOOD SPECIMEN Ordering Facility: [facility] Address: [address] [place] [address] Performed By: #### 5 7021-8 #### [facility] CLIA [id number] [address] [place] [address] [place] Differential cell count method Nom (Bld) Auto Normal [facility] Comment on above: Order Comment: Speci men Type: BLOOD SPECIMEN Ordering Facility: [facility] Address: [address] [place] [address] Performed By: #### 5 7021-8 #### [facility] CLIA [id number] [address] [place] [address] [place] Eosinophils (Bld) [#/Vol] 10*3/uL Normal <0.46 [facility] Comment on above: Order Comment: Speci men Type: BLOOD SPECIMEN Ordering Facility: [facility] Address: [address] [place] [address] Performed By: #### 5 7021-8 #### [facility] CLIA [id number] [address] [place] [address] [place] Eosinophils/100 WBC (Bld) 0.0 % Normal [facility] Comment on above: Order Comment: Speci men Type: BLOOD SPECIMEN Ordering Facility: [facility] Address: [address] [place] [address] Performed By: #### 5 7021-8 #### [facility] CLIA [id number] [address] [place] [address] [place] Erythrocyte distribution width (RBC) [Ratio] 18.7 % High 11.5-15.0 [facility] Comment on above: Order Comment: Speci men Type: BLOOD SPECIMEN Ordering Facility: [facility] Address: [address] [place] [address] Performed By: #### 5 7021-8 #### [facility] CLIA [id number] [address] [place] [address] [place] Hematocrit (Bld) [Volume fraction] 26.6 % Low 36.0-46.0 [facility] Comment on above: Order Comment: Speci men Type: BLOOD SPECIMEN Ordering Facility: [facility] Address: [address] [place] [address] Performed By: #### 5 7021-8 #### [facility] CLIA [id number] [address] [place] [address] [place] Hemoglobin (Bld) [Mass/Vol] 9.1 g/dL Low 11.5-15.5 [facility] Comment on above: Order Comment: Speci men Type: BLOOD SPECIMEN Ordering Facility: [facility] Address: [address] [place] [address] Performed By: #### 5 7021-8 #### [facility] CLIA [id number] [address] [place] [address] [place] Immature granulocytes (Bld) [#/Vol] 0.07 10*3/uL Normal <0.10 [facility] Comment on above: Order Comment: Speci men Type: BLOOD SPECIMEN Ordering Facility: [facility] Address: [address] [place] [address] Performed By: #### 5 7021-8 #### [facility] CLIA [id number] [address] [place] [address] [place] Immature granulocytes/100 WBC (Bld) 0.9 % Normal [facility] Comment on above: Order Comment: Speci men Type: BLOOD SPECIMEN Ordering Facility: [facility] Address: [address] [place] [address] Performed By: #### 5 7021-8 #### [facility] CLIA [id number] [address] [place] [address] [place] Lymphocytes (Bld) [#/Vol] 0.74 10*3/uL Low 1.00-4.00 [facility] Comment on above: Order Comment: Speci men Type: BLOOD SPECIMEN Ordering Facility: [facility] Address: [address] [place] [address] Performed By: #### 5 7021-8 #### [facility] CLIA [id number] [address] [place] [address] [place] Lymphocytes/100 WBC (Bld) 9.8 % Normal [facility] Comment on above: Order Comment: Speci men Type: BLOOD SPECIMEN Ordering Facility: [facility] Address: [address] [place] [address] Performed By: #### 5 7021-8 #### [facility] CLIA [id number] [address] [place] [address] [place] MCH (RBC) [Entitic mass] 32.4 pg Normal 26.0-34.0 [facility] Comment on above: Order Comment: Speci men Type: BLOOD SPECIMEN Ordering Facility: [facility] Address: [address] [place] [address] Performed By: #### 5 7021-8 #### [facility] CLIA [id number] [address] [place] [address] [place] MCHC (RBC) [Mass/Vol] 34.2 g/dL Normal 30.5-36.0 [facility] Comment on above: Order Comment: Speci men Type: BLOOD SPECIMEN Ordering Facility: [facility] Address: [address] [place] [address] Performed By: #### 5 7021-8 #### [facility] CLIA [id number] [address] [place] [address] [place] MCV (RBC) [Entitic vol] 94.7 fL Normal 80.0-100.0 [facility] Comment on above: Order Comment: Speci men Type: BLOOD SPECIMEN Ordering Facility: [facility] Address: [address] [place] [address] Performed By: #### 5 7021-8 #### [facility] CLIA [id number] [address] [place] [address] [place] Monocytes (Bld) [#/Vol] 0.42 10*3/uL Normal <0.87 [facility] Comment on above: Order Comment: Speci men Type: BLOOD SPECIMEN Ordering Facility: [facility] Address: [address] [place] [address] Performed By: #### 5 7021-8 #### [facility] CLIA [id number] [address] [place] [address] [place] Monocytes/100 WBC (Bld) 5.6 % Normal [facility] Comment on above: Order Comment: Speci men Type: BLOOD SPECIMEN Ordering Facility: [facility] Address: [address] [place] [address] Performed By: #### 5 7021-8 #### [facility] CLIA [id number] [address] [place] [address] [place] Neutrophils (Bld) [#/Vol] 6.31 10*3/uL Normal 1.45-7.50 [facility] Comment on above: Order Comment: Speci men Type: BLOOD SPECIMEN Ordering Facility: [facility] Address: [address] [place] [address] Performed By: #### 5 7021-8 #### [facility] CLIA [id number] [address] [place] [address] [place] Neutrophils/100 WBC (Bld) 83.6 % Normal [facility] Comment on above: Order Comment: Speci men Type: BLOOD SPECIMEN Ordering Facility: [facility] Address: [address] [place] [address] Performed By: #### 5 7021-8 #### [facility] CLIA [id number] [address] [place] [address] [place] Nucleated RBC (Bld) [#/Vol] 10*3/uL Normal <0.01 [facility] Comment on above: Order Comment: Speci men Type: BLOOD SPECIMEN Ordering Facility: [facility] Address: [address] [place] [address] Performed By: #### 5 7021-8 #### [facility] CLIA [id number] [address] [place] [address] [place] Nucleated RBC/100 WBC (Bld) [Ratio] 0.0 /100 WBC Normal [facility] Comment on above: Order Comment: Speci men Type: BLOOD SPECIMEN Ordering Facility: [facility] Address: [address] [place] [address] Performed By: #### 5 7021-8 #### [facility] CLIA [id number] [address] [place] [address] [place] Platelet mean volume (Bld) [Entitic vol] 9.3 fL Normal 9.0-12.7 [facility] Comment on above: Order Comment: Speci men Type: BLOOD SPECIMEN Ordering Facility: [facility] Address: [address] [place] [address] Performed By: #### 5 7021-8 #### [facility] CLIA [id number] [address] [place] [address] [place] Platelets (Bld) [#/Vol] 222 10*3/uL Normal 150-400 [facility] Comment on above: Order Comment: Speci men Type: BLOOD SPECIMEN Ordering Facility: [facility] Address: [address] [place] [address] Performed By: #### 5 7021-8 #### [facility] CLIA [id number] [address] [place] [address] [place] RBC (Bld) [#/Vol] 2.81 10*6/uL Low 3.90-5.20 [facility] Comment on above: Order Comment: Speci men Type: BLOOD SPECIMEN Ordering Facility: [facility] Address: [address] [place] [address] Performed By: #### 5 7021-8 #### [facility] CLIA [id number] [address] [place] [address] [place] WBC (Bld) [#/Vol] 7.55 10*3/uL Normal 3.70-11.00 [facility] Comment on above: Order Comment: Speci men Type: BLOOD SPECIMEN Ordering Facility: [facility] Address: [address] [place] [address] Performed By: #### 5 7021-8 #### [facility] CLIA [id number] [address] [place] [address] [place] Comprehensive metabolic 2000 panelon 08-28-2024 Albumin [Mass/Vol] 3.9 g/dL Normal 3.9-4.9 [facility] Comment on above: Order Comment: Speci men Type: BLOOD SPECIMEN Ordering Facility: [facility] Address: [address] [place] [address] Performed By: #### 2 4323-8, 72959-0, 2777-1 #### [facility] CLIA [id number] [address] [place] [address] [place] ALP [Catalytic activity/Vol] 90 U/L Normal 34-123 [facility] Comment on above: Order Comment: Speci men Type: BLOOD SPECIMEN Ordering Facility: [facility] Address: [address] [place] [address] Performed By: #### 2 4323-8, 29243-4, 2776-03 #### [facility] CLIA [id number] [address] [place], [place] [address] [place] ALT [Catalytic activity/Vol] 71 U/L High 7-38 [facility] Comment on above: Order Comment: Speci men Type: BLOOD SPECIMEN Ordering Facility: [facility] Address: [address] [place], [place] [address] Performed By: #### 2 4323-8, , 2776-03 #### [facility] CLIA [id number] [address] [place], [place] [address] [place] Anion gap [Moles/Vol] 11 mmol/L Normal 8-15 [facility] Comment on above: Order Comment: Speci men Type: BLOOD SPECIMEN Ordering Facility: [facility] Address: [address] [place], [place] [address] Performed By: #### 2 4323-8, , 2776-03 #### [facility] CLIA [id number] [address] [place], [place] [address] [place] AST [Catalytic activity/Vol] 49 U/L High 13-35 [facility] Comment on above: Order Comment: Speci men Type: BLOOD SPECIMEN Ordering Facility: [facility] Address: [address] [place], [place] [address] Performed By: #### 2 4323-8, , 2776-03 #### [facility] CLIA [id number] [address] [place], [place] [address] [place] Bilirubin [Mass/Vol] 0.5 mg/dL Normal 0.2-1.[address] [facility] Comment on above: Order Comment: Speci men Type: BLOOD SPECIMEN Ordering Facility: [facility] Address: [address] [place], [place] [address] Performed By: #### 2 4323-8, 35451-7, 2776-03 #### [facility] CLIA [id number] [address] [place] [address] [place] Calcium [Mass/Vol] 9.5 mg/dL Normal 8.5-10.2 [facility] Comment on above: Order Comment: Speci men Type: BLOOD SPECIMEN Ordering Facility: [facility] Address: [address] [place] [address] Performed By: #### 2 4323-8, , 2776-03 #### [facility] CLIA [id number] [address] [place] [address] [place] Chloride [Moles/Vol] 106 mmol/L Normal 98-[address] [facility] Comment on above: Order Comment: Speci men Type: BLOOD SPECIMEN Ordering Facility: [facility] Address: [address] [place] [address] Performed By: #### 2 4323-8, , 2776-03 #### [facility] CLIA [id number] [address] [place] [address] [place] CO2 [Moles/Vol] 22 mmol/L Normal 22-30 [facility] Comment on above: Order Comment: Speci men Type: BLOOD SPECIMEN Ordering Facility: [facility] Address: [address] [place], [place] [address] Performed By: #### 2 4323-8, , 2776-03 #### [facility] CLIA [id number] [address] [place], [place] [address] [place] Creatinine [Mass/Vol] 1.10 mg/dL High 0.58-0.96 [facility] Comment on above: Order Comment: Speci men Type: BLOOD SPECIMEN Ordering Facility: [facility] Address: [address] [place], [place] [address] Performed By: #### 2 4323-8, , 2777- #### [facility] CLIA [id number] [address] [place] [address] [place] Creatinine and Glomerular filtration rate.predicted panel (S/P/Bld) 60 mL/min/1.73m??? Normal >=60 [facility] Comment on above: Order Comment: Anitha alex Type: BLOOD SPECIMEN Ordering Facility: [facility] Address: [address] [place] [address] Result Comment: Latasha mated Glomerular Filtration Rate [...] actual GFR. Performed By: #### 2 4323-8, 40326-7, 2776- #### [facility] CLIA [id number] [address] [place] [address] [place] Glucose [Mass/Vol] 144 mg/dL High 74-99 [facility] Comment on above: Order Comment: Anitha alex Type: BLOOD SPECIMEN Ordering Facility: [facility] Address: [address] [place] [address] Result Comment: The [place] [employer] (ADA) provides guidance for cutoff [...] Standards of Medical Care in Diabetes 2016, [place] [employer]. Diabetes Care. 2016.39(Suppl 1). Performed By: #### 2 4323-8, 67196-4, 2776-03 #### [facility] CLIA [id number] [address] [place] [address] [place] Potassium [Moles/Vol] 3.4 mmol/L Low 3.7-5.1 [facility] Comment on above: Order Comment: Speci men Type: BLOOD SPECIMEN Ordering Facility: [facility] Address: [address] [place], [place] [address] Performed By: #### 2 4323-8, , 2776-03 #### [facility] CLIA [id number] [address] [place], [place] [address] [place] Protein [Mass/Vol] 6.0 g/dL Low 6.3-8.0 [facility] Comment on above: Order Comment: Speci men Type: BLOOD SPECIMEN Ordering Facility: [facility] Address: [address] [place] [address] Performed By: #### 2 4323-8, , 2776-03 #### [facility] [facility] CLIA [id number] [address] [place], [place] [address] [place] Sodium [Moles/Vol] 139 mmol/L Normal 136-144 [facility] Comment on above: Order Comment: Speci men Type: BLOOD SPECIMEN Ordering Facility: [facility] Address: [address] [place], [place] [address] Performed By: #### 2 4323-8, , 2776-03 #### [facility] CLIA [id number] [address] [place] [address] [place] Urea nitrogen [Mass/Vol] 14 mg/dL Normal 7-21 [facility] Comment on above: Order Comment: Speci men Type: BLOOD SPECIMEN Ordering Facility: [facility] Address: [address] [place], [place] [address] Performed By: #### 2 4323-8, , 2776-03 #### [facility] CLIA [id number] [address] [place], [place] [address] [place] Magnesium SerPl-mCncon 08-28 Magnesium [Mass/Vol] 2.0 mg/dL Normal 1.7-2.[address] [facility] Comment on above: Order Comment: Speci men Type: BLOOD SPECIMEN Ordering Facility: [facility] Address: [address] [place] [address] Performed By: #### 2 4323-8, 98729-7, 2777-1 #### [facility] CLIA [id number] [address] [place] [address] [place] NUTRITIONon 08-28-2024 NUTRITION HNO ID: [id number] Author: GERALDINE BENITO RD Service: Nutrition Therapy [...] for wound healing to breast) Refer to: Prepress Supervisor to Follow Vitamins and Minerals: Multivitamin with [...] new finding of brain metastases at [facility]. Transferred to [facility] for brain MRI and is seeking [...] noted via LDA avatar. Plan to send [place] once daily w/ lunch for support [...] Weight Type: Current weight Estimated kilocalorie needs: 2075-3424 Calorie Calculation Method: 20-25 kcals/kg Estimated protein [...] August 28, 2024 TIME: 4:10 PM Normal [facility] Phosphate SerPl-mCncon 08-28 Phosphate [Mass/Vol] 2.4 mg/dL Low 2.7-4.[address] [facility] Comment on above: Order Comment: Speci men Type: BLOOD SPECIMENOrdering Facility: [facility] Address: [address] [place] [address] Performed By: #### 2 4323-8, 60987-5, 2777-1 ####[facility] [id number] [place] [address] [place] ALLIED HEALTHon 08-27-2024 ALLIED HEALTH HNO ID: [id number] Author: EMILIANA ALVAREZ, Student Service: Spiritual Care Author Type: Student Type: Allied Health Filed: 08/27/2024 12:09 Note Text: SPIRITUAL CARE ASSESSMENT SERVICE DATE: 08/27/2024 SERVICE TIME: 11:10 Visit with: Patient Length of visit (minutes): 30 Christian / Spirituality: Protestant Reason: Initial visit ASSESSMENT Emotional Disposition: Afraid, [...] 27, 2024 TIME: 12:01 PM PAGER/CONTACT #: [phone] Normal [facility] CBC W Auto Differential pane l (Bld)on 08-27-2024 Basophils (Bld) [#/Vol] 0.05 10*3/uL Normal <0.11 [facility] Comment on above: Order Comment: Speci men Type: BLOOD SPECIMEN Ordering Facility: [facility] Address: [address] [place] [address] Performed By: #### 2 777-1, , #### [facility] CLIA [id number] [address] [place] [address] [place] Basophils/100 WBC (Bld) 1.3 % Normal [facility] Comment on above: Order Comment: Speci men Type: BLOOD SPECIMEN Ordering Facility: [facility] Address: [address] [place] [address] Performed By: #### 2 777-1, 39050-5, #### [facility] CLIA [id number] [address] [place] [address] [place] Differential cell count method Nom (Bld) Auto Normal [facility] Comment on above: Order Comment: Speci men Type: BLOOD SPECIMEN Ordering Facility: [facility] Address: [address] [place] [address] Performed By: #### 2 777-1, , #### [facility] CLIA [id number] [address] [place] [address] [place] Eosinophils (Bld) [#/Vol] 0.27 10*3/uL Normal <0.46 [facility] Comment on above: Order Comment: Speci men Type: BLOOD SPECIMEN Ordering Facility: [facility] Address: [address] [place] [address] Performed By: #### 2 777-1, , #### [facility] CLIA [id number] [address] [place] [address] [place] Eosinophils/100 WBC (Bld) 6.9 % Normal [facility] Comment on above: Order Comment: Speci men Type: BLOOD SPECIMEN Ordering Facility: [facility] Address: [address] [place] [address] Performed By: #### 2 777-1, , #### [facility] CLIA [id number] [address] [place] [address] [place] Erythrocyte distribution width (RBC) [Ratio] 18.7 % High 11.5-15.0 [facility] Comment on above: Order Comment: Speci men Type: BLOOD SPECIMEN Ordering Facility: [facility] Address: [address] [place] [address] Performed By: #### 2 777-1, , #### [facility] CLIA [id number] [address] [place] [address] [place] Hematocrit (Bld) [Volume fraction] 27.3 % Low 36.0-46.0 [facility] Comment on above: Order Comment: Speci men Type: BLOOD SPECIMEN Ordering Facility: [facility] Address: [address] [place] [address] Performed By: #### 2 777-1, 88355-7, #### [facility] CLIA [id number] [address] [place] [address] [place] Hemoglobin (Bld) [Mass/Vol] 9.4 g/dL Low 11.5-15.5 [facility] Comment on above: Order Comment: Speci men Type: BLOOD SPECIMEN Ordering Facility: [facility] Address: [address] [place] [address] Performed By: #### 2 777-1, 74265-9, #### [facility] CLIA [id number] [address] [place] [address] [place] Immature granulocytes (Bld) [#/Vol] 0.03 10*3/uL Normal <0.10 [facility] Comment on above: Order Comment: Speci men Type: BLOOD SPECIMEN Ordering Facility: [facility] Address: [address] [place] [address] Performed By: #### 2 777-1, , #### [facility] CLIA [id number] [address] [place] [address] [place] Immature granulocytes/100 WBC (Bld) 0.8 % Normal [facility] Comment on above: Order Comment: Speci men Type: BLOOD SPECIMEN Ordering Facility: [facility] Address: [address] [place] [address] Performed By: #### 2 777-1, , #### [facility] CLIA [id number] [address] [place] [address] [place] Lymphocytes (Bld) [#/Vol] 1.06 10*3/uL Normal 1.00-4.00 [facility] Comment on above: Order Comment: Speci men Type: BLOOD SPECIMEN Ordering Facility: [facility] Address: [address] [place] [address] Performed By: #### 2 777-1, , #### [facility] CLIA [id number] [address] [place] [address] [place] Lymphocytes/100 WBC (Bld) 26.9 % Normal [facility] Comment on above: Order Comment: Speci men Type: BLOOD SPECIMEN Ordering Facility: [facility] Address: [address] [place] [address] Performed By: #### 2 777-1, 20146-4, #### [facility] CLIA [id number] [address] [place] [address] [place] MCH (RBC) [Entitic mass] 32.6 pg Normal 26.0-34.0 [facility] Comment on above: Order Comment: Speci men Type: BLOOD SPECIMEN Ordering Facility: [facility] Address: [address] [place] [address] Performed By: #### 2 777-1, , #### [facility] CLIA [id number] [address] [place] [address] [place] MCHC (RBC) [Mass/Vol] 34.4 g/dL Normal 30.5-36.0 [facility] Comment on above: Order Comment: Speci men Type: BLOOD SPECIMEN Ordering Facility: [facility] Address: [address] [place], [place] [address] Performed By: #### 2 777-1, 95871-6, #### [facility] CLIA [id number] [address] [place] [address] [place] MCV (RBC) [Entitic vol] 94.8 fL Normal 80.0-100.0 [facility] Comment on above: Order Comment: Speci men Type: BLOOD SPECIMEN Ordering Facility: [facility] Address: [address] [place] [address] Performed By: #### 2 777-1, 57805-9, #### [facility] CLIA [id number] [address] [place] [address] [place] Monocytes (Bld) [#/Vol] 0.42 10*3/uL Normal <0.87 [facility] Comment on above: Order Comment: Speci men Type: BLOOD SPECIMEN Ordering Facility: [facility] Address: [address] [place] [address] Performed By: #### 2 777-1, 43287-3, #### [facility] CLIA [id number] [address] [place] [address] [place] Monocytes/100 WBC (Bld) 10.7 % Normal [facility] Comment on above: Order Comment: Speci men Type: BLOOD SPECIMEN Ordering Facility: [facility] Address: [address] [place] [address] Performed By: #### 2 777-1, 89461-4, #### [facility] CLIA [id number] [address] [place] [address] [place] Neutrophils (Bld) [#/Vol] 2.11 10*3/uL Normal 1.45-7.50 [facility] Comment on above: Order Comment: Speci men Type: BLOOD SPECIMEN Ordering Facility: [facility] Address: [address] [place] [address] Performed By: #### 2 777-1, 78436-9, #### [facility] CLIA [id number] [address] [place] [address] [place] Neutrophils/100 WBC (Bld) 53.4 % Normal [facility] Comment on above: Order Comment: Speci men Type: BLOOD SPECIMEN Ordering Facility: [facility] Address: [address] [place] [address] Performed By: #### 2 777-1, 72292-9, #### [facility] CLIA [id number] [address] [place], [place] [address] [place] Nucleated RBC (Bld) [#/Vol] 10*3/uL Normal <0.01 [facility] Comment on above: Order Comment: Speci men Type: BLOOD SPECIMEN Ordering Facility: [facility] Address: [address] [place] [address] Performed By: #### 2 777-1, 17357-0, #### [facility] CLIA [id number] [address] [place] [address] [place] Nucleated RBC/100 WBC (Bld) [Ratio] 0.0 /100 WBC Normal [facility] Comment on above: Order Comment: Speci men Type: BLOOD SPECIMEN Ordering Facility: [facility] Address: [address] [place], [place] [address] Performed By: #### 2 777-1, 79985-0, #### [facility] CLIA [id number] [address] [place] [address] [place] Platelet mean volume (Bld) [Entitic vol] 9.0 fL Normal 9.0-12.7 [facility] Comment on above: Order Comment: Speci men Type: BLOOD SPECIMEN Ordering Facility: [facility] Address: [address] [place], [place] [address] Performed By: #### 2 777-1, 26927-9, #### [facility] CLIA [id number] [address] [place], [place] [address] [place] Platelets (Bld) [#/Vol] 224 10*3/uL Normal 150-400 [facility] Comment on above: Order Comment: Speci men Type: BLOOD SPECIMEN Ordering Facility: [facility] Address: [address] [place], [place] [address] Performed By: #### 2 777-1, 45691-1, 57328-2 #### [facility] CLIA [id number] [address] [place] [address] [place] RBC (Bld) [#/Vol] 2.88 10*6/uL Low 3.90-5.20 [facility] Comment on above: Order Comment: Speci men Type: BLOOD SPECIMEN Ordering Facility: [facility] Address: [address] [place] [address] Performed By: #### 2 777-1, 99851-3, 83942-6 #### [facility] CLIA [id number] [address] [place] [address] [place] WBC (Bld) [#/Vol] 3.94 10*3/uL Normal 3.70-11.00 [facility] Comment on above: Order Comment: Speci men Type: BLOOD SPECIMEN Ordering Facility: [facility] Address: [address] [place] [address] Performed By: #### 2 777-1, 10766-1, 41521-0 #### [facility] CLIA [id number] [address] [place] [address] CONSULTon 08-27-2024 CONSULT HNO ID: [id number] Author: MARISELA CISNEROS MD Service: Radiation Oncology Author Type: Physician Type: Consults Filed: 08/27/2024 13:14 Note Text: [facility] INITIAL CONSULT GENERAL Please contact Dr. Marisela Cisneros (staff) [id number] [id number] for questions regarding RT during this patient's admission; otherwise contact the on-call resident (Pager [phone]) after hours. SERVICE DATE: 08/27/2024 SERVICE TIME: [...] diagnosis s/p bilateral mastectomy and right ALND, zhM5pS5 disease and subsequent adjuvant RT completed ~Jan 2024. Subjective CHIEF COMPLAINT: slurred speech, right arm weakness. HPI: Ms. Flannery is a 53 year old woman with history of right breast cancer (ER-weakly positive, DC-negative, HER2 nonamplified) diagnosed and managed at [facility]. She underwent neoadjuvant chemoimmunotherapy followed by bilateral mastectomy with right axillary dissection and tissue equine science instructor reconstruction 10/2023, noted to have ypT1c N2 disease. Subsequently received adjuvant right chest wall RT and anastrozole around 01/2024 (records not available on my review). Course has been complicated by multiple wound infections requiring debridement. PET/CT 06/12/24 showed a 2.5 cm mass in the posterior liver which was biopsied 07/11/24 showing oligometastatic disease. She has transitioned care to [facility] to unify her care; otherwise seen [...] is pending; primary team believes her tissue equine science instructor will be removed 08/30. She is tearful [...] DAILY imipenem-cilas (more content not included)... Normal [facility] Comprehensive metabolic 2000 panelon 08-27-2024 Albumin [Mass/Vol] 3.9 g/dL Normal 3.9-4.9 [facility] Comment on above: Order Comment: Speci men Type: BLOOD SPECIMEN Ordering Facility: [facility] Address: [address] [place] [address] Performed By: #### 2 777-1, 34699-4, #### [facility] CLIA [id number] [address] [place] [address] [place] ALP [Catalytic activity/Vol] 101 U/L Normal 34-123 [facility] Comment on above: Order Comment: Speci men Type: BLOOD SPECIMEN Ordering Facility: [facility] Address: [address] [place] [address] Performed By: #### 2 777-1, , #### [facility] CLIA [id number] [address] [place] [address] [place] ALT [Catalytic activity/Vol] 91 U/L High 7-38 [facility] Comment on above: Order Comment: Speci men Type: BLOOD SPECIMEN Ordering Facility: [facility] Address: [address] [place] [address] Performed By: #### 2 777-1, 33793-4, #### [facility] CLIA [id number] [address] [place], [place] [address] [place] Anion gap [Moles/Vol] 10 mmol/L Normal 8-15 [facility] Comment on above: Order Comment: Speci men Type: BLOOD SPECIMEN Ordering Facility: [facility] Address: [address] [place] [address] Performed By: #### 2 777-1, 67302-3, #### [facility] CLIA [id number] [address] [place], [place] [address] [place] AST [Catalytic activity/Vol] 74 U/L High 13-35 [facility] Comment on above: Order Comment: Speci men Type: BLOOD SPECIMEN Ordering Facility: [facility] Address: [address] [place] [address] Performed By: #### 2 777-1, , #### [facility] CLIA [id number] [address] [place] [address] [place] Bilirubin [Mass/Vol] 0.5 mg/dL Normal 0.2-1.[address] [facility] Comment on above: Order Comment: Speci men Type: BLOOD SPECIMEN Ordering Facility: [facility] Address: [address] [place] [address] Performed By: #### 2 777-1, , #### [facility] CLIA [id number] [address] [place] [address] [place] Calcium [Mass/Vol] 9.5 mg/dL Normal 8.5-10.2 [facility] Comment on above: Order Comment: Speci men Type: BLOOD SPECIMEN Ordering Facility: [facility] Address: [address] [place] [address] Performed By: #### 2 777-1, , #### [facility] CLIA [id number] [address] [place], [place] [address] [place] Chloride [Moles/Vol] 106 mmol/L Normal 98-[address] [facility] Comment on above: Order Comment: Speci men Type: BLOOD SPECIMEN Ordering Facility: [facility] Address: [address] [place], [place] [address] Performed By: #### 2 777-1, 67190-1, #### [facility] CLIA [id number] [address] [place] [address] [place] CO2 [Moles/Vol] 24 mmol/L Normal 22-30 [facility] Comment on above: Order Comment: Anitha alex Type: BLOOD SPECIMEN Ordering Facility: [facility] Address: [address] [place] [address] Performed By: #### 2 777-1, 78083-2, #### [facility] CLIA [id number] [address] [place] [address] [place] Creatinine [Mass/Vol] 1.15 mg/dL High 0.58-0.96 [facility] Comment on above: Order Comment: Speci men Type: BLOOD SPECIMEN Ordering Facility: [facility] Address: [address] [place] [address] Performed By: #### 2 777-1, 47635-4, #### [facility] CLIA [id number] [address] [place] [address] [place] Creatinine and Glomerular filtration rate.predicted panel (S/P/Bld) 57 mL/min/1.73m??? Low >=60 [facility] Comment on above: Order Comment: Anitha alex Type: BLOOD SPECIMEN Ordering Facility: [facility] Address: [address] [place] [address] Result Comment: Latasha mated Glomerular Filtration Rate [...] Performed By: #### 2 777-1, , #### [facility] CLIA [id number] [address] [place], [place] [address] [place] Glucose [Mass/Vol] 96 mg/dL Normal 74-99 [facility] Comment on above: Order Comment: Speci men Type: BLOOD SPECIMEN Ordering Facility: [facility] Address: [address] [place] [address] Result Comment: The [place] [employer] Association (ADA) provides guidance for cutoff [...] Standards of Medical Care in Diabetes 2016, [place] [employer]. Diabetes Care. 2016.39(Suppl 1). Performed By: #### 2 777-1, 38191-5, #### [facility] CLIA [id number] [address] [place] [address] [place] Potassium [Moles/Vol] 3.5 mmol/L Low 3.7-5.1 [facility] Comment on above: Order Comment: Anitha alex Type: BLOOD SPECIMEN Ordering Facility: [facility] Address: [address] [place] [address] Performed By: #### 2 777-1, 06913-9, #### [facility] CLIA [id number] [address] [place] [address] [place] Protein [Mass/Vol] 5.8 g/dL Low 6.3-8.0 [facility] Comment on above: Order Comment: Anitha alex Type: BLOOD SPECIMEN Ordering Facility: [facility] Address: [address] [place] [address] Performed By: #### 2 777-1, , #### [facility] CLIA [id number] [address] [place] [address] [place] Sodium [Moles/Vol] 140 mmol/L Normal 136-144 [facility] Comment on above: Order Comment: Speci men Type: BLOOD SPECIMEN Ordering Facility: [facility] Address: [address] [place] [address] Performed By: #### 2 777-1, 38209-5, #### [facility] CLIA [id number] [address] [place] [address] [place] Urea nitrogen [Mass/Vol] 13 mg/dL Normal 7-21 [facility] Comment on above: Order Comment: Speci men Type: BLOOD SPECIMEN Ordering Facility: [facility] Address: [address] [place] [address] Performed By: #### 2 777-1, , #### [facility] CLIA [id number] [address] [place] [address] [place] Magnesium SerPl-mCncon 08-27 Magnesium [Mass/Vol] 2.0 mg/dL Normal 1.7-2.[address] [facility] Comment on above: Order Comment: Speci men Type: BLOOD SPECIMEN Ordering Facility: [facility] Address: [address] [place] [address] Performed By: #### 2 777-1, , #### [facility] CLIA [id number] [address] [place] [address] [place] Phosphate SerPl-mCncon 08-27 Phosphate [Mass/Vol] 3.1 mg/dL Normal 2.7-4.[address] [facility] Comment on above: Order Comment: Speci men Type: BLOOD SPECIMEN Ordering Facility: [facility] Address: [address] [place] [address] Performed By: #### 2 777-1, , #### [facility] CLIA [id number] [address] [place], [place] [address] [place] XR CHEST 1V [...] limits for portable projection. Other: Soft tissue equine science instructor is identified in the RIGHT breast with adjacent surgical clips. There is scoliosis of the thoracolumbar spine. IMPRESSION: See result Community Support Worker: PSCWillis Transcribe Date/Time: Aug 27 2024 9:51A Dictated by : HAN HARRINGTON MD This examination was interpreted and the report reviewed and electronically signed by: HAN HARRINGTON MD on Aug 27 2024 9:51AM EST [id number] Normal [facility] Amikacin Trough SerPl-mCncon 08-26-2024 Amikacin trough [Mass/Vol] <0.8 Low 5.0-8.0 [facility] Comment on above: Order Comment: Speci men Type: BLOOD SPECIMEN Ordering Facility: [facility] Address: [address] [place] [address] Result Comment: Refe rence ranges and high/low indicator flags are provided as general guidelines only. The treating physician must determine appropriate target levels/dosing based on the specific clinical situation. Result rechecked. Performed By: #### 2 777-1, 59332-4, 54358-9 #### [facility] CLIA [id number] [address] [place] [address] [place] CBC W Auto Differential pane l (Bld)on 08-26-2024 Basophils (Bld) [#/Vol] 0.06 10*3/uL Normal <0.11 [facility] Comment on above: Order Comment: Speci men Type: BLOOD SPECIMEN Ordering Facility: [facility] Address: [address] [place] [address] Performed By: #### 5 7021-8 #### [facility] CLIA [id number] [address] [place] [address] [place] Basophils/100 WBC (Bld) 1.4 % Normal [facility] Comment on above: Order Comment: Speci men Type: BLOOD SPECIMEN Ordering Facility: [facility] Address: [address] [place] [address] Performed By: #### 5 7021-8 #### [facility] CLIA [id number] [address] [place] [address] [place] Differential cell count method Nom (Bld) Auto Normal [facility] Comment on above: Order Comment: Speci men Type: BLOOD SPECIMEN Ordering Facility: [facility] Address: [address] [place] [address] Performed By: #### 5 7021-8 #### [facility] CLIA [id number] [address] [place] [address] [place] Eosinophils (Bld) [#/Vol] 0.32 10*3/uL Normal <0.46 [facility] Comment on above: Order Comment: Speci men Type: BLOOD SPECIMEN Ordering Facility: [facility] Address: [address] [place] [address] Performed By: #### 5 7021-8 #### [facility] CLIA [id number] [address] [place] [address] [place] Eosinophils/100 WBC (Bld) 7.5 % Normal [facility] Comment on above: Order Comment: Speci men Type: BLOOD SPECIMEN Ordering Facility: [facility] Address: [address] [place] [address] Performed By: #### 5 7021-8 #### [facility] CLIA [id number] [address] [place] [address] [place] Erythrocyte distribution width (RBC) [Ratio] 18.7 % High 11.5-15.0 [facility] Comment on above: Order Comment: Speci men Type: BLOOD SPECIMEN Ordering Facility: [facility] Address: [address] [place] [address] Performed By: #### 5 7021-8 #### [facility] CLIA [id number] [address] [place] [address] [place] Hematocrit (Bld) [Volume fraction] 29.0 % Low 36.0-46.0 [facility] Comment on above: Order Comment: Speci men Type: BLOOD SPECIMEN Ordering Facility: [facility] Address: [address] [place] [address] Performed By: #### 5 7021-8 #### [facility] CLIA [id number] [address] [place] [address] [place] Hemoglobin (Bld) [Mass/Vol] 10.0 g/dL Low 11.5-15.5 [facility] Comment on above: Order Comment: Speci men Type: BLOOD SPECIMEN Ordering Facility: [facility] Address: [address] [place] [address] Performed By: #### 5 7021-8 #### [facility] CLIA [id number] [address] [place] [address] [place] Immature granulocytes (Bld) [#/Vol] 0.03 10*3/uL Normal <0.10 [facility] Comment on above: Order Comment: Speci men Type: BLOOD SPECIMEN Ordering Facility: [facility] Address: [address] [place] [address] Performed By: #### 5 7021-8 #### [facility] CLIA [id number] [address] [place] [address] [place] Immature granulocytes/100 WBC (Bld) 0.7 % Normal [facility] Comment on above: Order Comment: Speci men Type: BLOOD SPECIMEN Ordering Facility: [facility] Address: [address] [place] [address] Performed By: #### 5 7021-8 #### [facility] CLIA [id number] [address] [place] [address] [place] Lymphocytes (Bld) [#/Vol] 0.89 10*3/uL Low 1.00-4.00 [facility] Comment on above: Order Comment: Speci men Type: BLOOD SPECIMEN Ordering Facility: [facility] Address: [address] [place] [address] Performed By: #### 5 7021-8 #### [facility] CLIA [id number] [address] [place] [address] [place] Lymphocytes/100 WBC (Bld) 20.8 % Normal [facility] Comment on above: Order Comment: Speci men Type: BLOOD SPECIMEN Ordering Facility: [facility] Address: [address] [place] [address] Performed By: #### 5 7021-8 #### [facility] CLIA [id number] [address] [place] [address] [place] MCH (RBC) [Entitic mass] 32.7 pg Normal 26.0-34.0 [facility] Comment on above: Order Comment: Speci men Type: BLOOD SPECIMEN Ordering Facility: [facility] Address: [address] [place] [address] Performed By: #### 5 7021-8 #### [facility] CLIA [id number] [address] [place] [address] [place] MCHC (RBC) [Mass/Vol] 34.5 g/dL Normal 30.5-36.0 [facility] Comment on above: Order Comment: Speci men Type: BLOOD SPECIMEN Ordering Facility: [facility] Address: [address] [place] [address] Performed By: #### 5 7021-8 #### [facility] CLIA [id number] [address] [place] [address] [place] MCV (RBC) [Entitic vol] 94.8 fL Normal 80.0-100.0 [facility] Comment on above: Order Comment: Speci men Type: BLOOD SPECIMEN Ordering Facility: [facility] Address: [address] [place] [address] Performed By: #### 5 7021-8 #### [facility] CLIA [id number] [address] [place] [address] [place] Monocytes (Bld) [#/Vol] 0.49 10*3/uL Normal <0.87 [facility] Comment on above: Order Comment: Speci men Type: BLOOD SPECIMEN Ordering Facility: [facility] Address: [address] [place] [address] Performed By: #### 5 7021-8 #### [facility] CLIA [id number] [address] [place] [address] [place] Monocytes/100 WBC (Bld) 11.4 % Normal [facility] Comment on above: Order Comment: Speci men Type: BLOOD SPECIMEN Ordering Facility: [facility] Address: [address] [place] [address] Performed By: #### 5 7021-8 #### [facility] CLIA [id number] [address] [place] [address] [place] Neutrophils (Bld) [#/Vol] 2.49 10*3/uL Normal 1.45-7.50 [facility] Comment on above: Order Comment: Speci men Type: BLOOD SPECIMEN Ordering Facility: [facility] Address: [address] [place] [address] Performed By: #### 5 7021-8 #### [facility] CLIA [id number] [address] [place] [address] [place] Neutrophils/100 WBC (Bld) 58.2 % Normal [facility] Comment on above: Order Comment: Speci men Type: BLOOD SPECIMEN Ordering Facility: [facility] Address: [address] [place] [address] Performed By: #### 5 7021-8 #### [facility] CLIA [id number] [address] [place] [address] [place] Nucleated RBC (Bld) [#/Vol] 10*3/uL Normal <0.01 [facility] Comment on above: Order Comment: Speci men Type: BLOOD SPECIMEN Ordering Facility: [facility] Address: [address] [place] [address] Performed By: #### 5 7021-8 #### [facility] CLIA [id number] [address] [place] [address] [place] Nucleated RBC/100 WBC (Bld) [Ratio] 0.0 /100 WBC Normal [facility] Comment on above: Order Comment: Speci men Type: BLOOD SPECIMEN Ordering Facility: [facility] Address: [address] [place] [address] Performed By: #### 5 7021-8 #### [facility] CLIA [id number] [address] [place] [address] [place] Platelet mean volume (Bld) [Entitic vol] 9.0 fL Normal 9.0-12.7 [facility] Comment on above: Order Comment: Speci men Type: BLOOD SPECIMEN Ordering Facility: [facility] Address: [address] [place] [address] Performed By: #### 5 7021-8 #### [facility] CLIA [id number] [address] [place] [address] [place] Platelets (Bld) [#/Vol] 246 10*3/uL Normal 150-400 [facility] Comment on above: Order Comment: Speci men Type: BLOOD SPECIMEN Ordering Facility: [facility] Address: [address] [place] [address] Performed By: #### 5 7021-8 #### [facility] CLIA [id number] [address] [place] [address] [place] RBC (Bld) [#/Vol] 3.06 10*6/uL Low 3.90-5.20 [facility] Comment on above: Order Comment: Speci men Type: BLOOD SPECIMEN Ordering Facility: [facility] Address: [address] [place] [address] Performed By: #### 5 7021-8 #### [facility] CLIA [id number] [address] [place] [address] [place] WBC (Bld) [#/Vol] 4.28 10*3/uL Normal 3.70-11.00 [facility] Comment on above: Order Comment: Speci men Type: BLOOD SPECIMEN Ordering Facility: [facility] Address: [address] [place] [address] Performed By: #### 5 7021-8 #### [facility] CLIA [id number] [address] [place] [address] [place] CONSULTon 08-26-2024 CONSULT HNO ID: [id number] Author: KAYLEIGH SINGH MD Service: Neurosurgery Author [...] liver) s/p chemoradiation, s/p right breast tissue equine science instructor placement (not MRI compatible), currently on Xeloda, presenting to [place] ED on 08/25 with slurred speech and [...] word slurring. Initial symptoms prompted evaluation at [place] which led to current findings. Denies recent [...] suspected due (more content not included)... Normal [facility] CONSULT HNO ID: [id number] Author: PRECIOUS [place] MD Service: Plastic Surgery Author Type: Resident Type: Consults Filed: 08/29/2024 08:20 Note Text: Attestation signed by Precious [place] MD at 08/29/2024 8:20 AM Plan for OR for equine science instructor removal Thursday. PLASTIC SURGERY CONSULTATION SERVICE DATE: 08/26/2024 SERVICE TIME: 4:30 PM Reason for Consultation: MRI incompatible R breast TE in setting of metastatic breast cancer workup Requesting Physician: Genna Sahu DO (Oncology) Subjective HPI: Ms. Flannery is a 53 year old female a history of right breast cancer (ER+, DC?, HER2?) treated with neoadjuvant chemotherapy and bilateral mastectomy on 10/28/2023, followed by bilateral tissue equine science instructor placement, hx of DVT in the last [...] breast TE. Existing Right Sientra AlloX2 tissue equine science instructor is not MRI safe, precluding imaging. She denies pain, drainage, fevers, or other signs of Right breast infection. She is aware and agreeable to surgical explantation to facilitate her cancer staging and treatment. 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 [facility] tissue equine science instructor: Sientra AlloX2 14?12?cm, 480-575?cc, textured, integrated port Implant date: 10/28/2023 (Dr. Jenny Gross, [place], [place]) Not MRI compatible PAST MEDICAL HISTORY [...] Facility-Administered Medicat (more content not included)... Normal [facility] CONSULT HNO ID: [id number] Author: CHRISTY DA SILVA MD Service: Infectious [...] is a 53 year old female from [facility] with -HTN -anemia -LLE DVT on Eliquis -R breast cancer 04/2023 s/p chemo x 16 cycles through 09/29/2023 followed by bilateral mastectomy with b/l expanders c/b L sided seroma -10/2023 bilateral skin sparing mastectomies and tissue explander reconstruction complicated by infected seroma L side - 11/27/2023 : Left breast IANDD and equine science instructor removal - 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 Treated by ID (Dr Noguera in [place]) with Amikacin 750 mg MWF, Imipenem 1 [...] M. Abscessus infection. Recent debridement 08/13 at [place] with culture positive for Pseudomonas (on levaquin x 10 days, 4 days remaining of her course). Anaerobic cx negative. Called [facility] and does not seem there is an AFB culture collected from the 08/12 debridement. However the 07/27 debridement did have a culture sent for AFB to [facility] (below) Patient has been afebrile since admission. Feeling alright but concerned about brain mass. Wound examined when plastic surgery at bedside- tentative plan to remove R breast tissue equine science instructor so that MRI brain can be completed [...] COVID-19 original vaccine, age 12+ yr, monovalent ([employer] - PURPLE TOP) 11/15/2020 COVID-19 vaccine, unspecified [...] Vancomycin Othe (more content not included)... Normal [facility] CT BRAIN WO/W IVCONon 2024 CT BRAIN WO/W IVCON * * *Final Report* * * DATE OF EXAM: Aug 26 2024 9:58PM [facility] 0007 - CT BRAIN WO/W [...] with vasogenic edema and local mass effect. Community Support Worker: CARLOS Transcribe Date/Time: Aug 26 2024 10:00P Dictated by : GEORGIANA CARMICHAEL MD This examination was interpreted and the report reviewed and electronically signed by: GEORGIANA CARMICHAEL MD on Aug 26 2024 10:02PM EST [id number] Normal [facility] metabolic 2000 panelon 08-26-2024 Albumin [Mass/Vol] 4.1 g/dL Normal 3.9-4.9 [facility] Comment on above: Order Comment: Phyliciai abi Type: BLOOD SPECIMEN Ordering Facility: [facility] Address: [address] [place] [address] Performed By: #### 5 7021-8 #### [facility] CLIA [id number] [address] [place] [address] [place] ALP [Catalytic activity/Vol] 110 U/L Normal 34-123 [facility] Comment on above: Order Comment: Anitha alex Type: BLOOD SPECIMEN Ordering Facility: [facility] Address: [address] [place] [address] Performed By: #### 5 7021-8 #### [facility] CLIA [id number] [address] [place] [address] [place] ALT [Catalytic activity/Vol] 106 U/L High 7-38 [facility] Comment on above: Order Comment: Speci men Type: BLOOD SPECIMEN Ordering Facility: [facility] Address: [address] [place] [address] Performed By: #### 5 7021-8 #### [facility] CLIA [id number] [address] [place] [address] [place] Anion gap [Moles/Vol] 13 mmol/L Normal 8-15 [facility] Comment on above: Order Comment: Speci men Type: BLOOD SPECIMEN Ordering Facility: [facility] Address: [address] [place] [address] Performed By: #### 5 7021-8 #### [facility] CLIA [id number] [address] [place] [address] [place] AST [Catalytic activity/Vol] 94 U/L High 13-35 [facility] Comment on above: Order Comment: Speci men Type: BLOOD SPECIMEN Ordering Facility: [facility] Address: [address] [place] [address] Performed By: #### 5 7021-8 #### [facility] CLIA [id number] [address] [place] [address] [place] Bilirubin [Mass/Vol] 0.6 mg/dL Normal 0.2-1.[address] [facility] Comment on above: Order Comment: Speci men Type: BLOOD SPECIMEN Ordering Facility: [facility] Address: [address] [place] [address] Performed By: #### 5 7021-8 #### [facility] CLIA [id number] [address] [place] [address] [place] Calcium [Mass/Vol] 9.6 mg/dL Normal 8.5-10.2 [facility] Comment on above: Order Comment: Speci men Type: BLOOD SPECIMEN Ordering Facility: [facility] Address: [address] [place] [address] Performed By: #### 5 7021-8 #### [facility] CLIA [id number] [address] [place] [address] [place] Chloride [Moles/Vol] 106 mmol/L Normal 98-[address] [facility] Comment on above: Order Comment: Speci men Type: BLOOD SPECIMEN Ordering Facility: [facility] Address: [address] [place] [address] Performed By: #### 5 7021-8 #### [facility] CLIA [id number] [address] [place] [address] [place] CO2 [Moles/Vol] 22 mmol/L Normal 22-30 [facility] Comment on above: Order Comment: Speci men Type: BLOOD SPECIMEN Ordering Facility: [facility] Address: [address] [place] [address] Performed By: #### 5 7021-8 #### [facility] CLIA [id number] [address] [place] [address] [place] Creatinine [Mass/Vol] 1.24 mg/dL High 0.58-0.96 [facility] Comment on above: Order Comment: Speci men Type: BLOOD SPECIMEN Ordering Facility: [facility] Address: [address] [place] [address] Performed By: #### 5 7021-8 #### [facility] IA [id number] [address] [place] [address] [place] Creatinine and Glomerular filtration rate.predicted panel (S/P/Bld) 52 mL/min/1.73m??? Low >=60 [facility] Comment on above: Order Comment: Speci men Type: BLOOD SPECIMEN Ordering Facility: [facility] Address: [address] [place] [address] Result Comment: Latasha mated Glomerular Filtration Rate [...] GFR. Performed By: #### 5 7021-8 #### [facility] CLIA [id number] [address] [place] [address] [place] Glucose [Mass/Vol] 83 mg/dL Normal 74-99 [facility] Comment on above: Order Comment: Speci men Type: BLOOD SPECIMEN Ordering Facility: [facility] Address: [address] [place] [address] Result Comment: The [place] Diabetes Association (ADA) provides guidance for cutoff [...] Standards of Medical Care in Diabetes 2016, [place] [employer] Association. Diabetes Care. 2016.39(Suppl 1). Performed By: #### 5 7021-8 #### [facility] CLIA [id number] [address] [place] [address] [place] Potassium [Moles/Vol] 3.9 mmol/L Normal 3.7-5.1 [facility] Comment on above: Order Comment: Speci men Type: BLOOD SPECIMEN Ordering Facility: [facility] Address: [address] [place] [address] Performed By: #### 5 7021-8 #### [facility] CLIA [id number] [address] [place] [address] [place] Protein [Mass/Vol] 6.1 g/dL Low 6.3-8.0 [facility] Comment on above: Order Comment: Speci men Type: BLOOD SPECIMEN Ordering Facility: [facility] Address: [address] [place] [address] Performed By: #### 5 7021-8 #### [facility] CLIA [id number] [address] [place] [address] [place] Sodium [Moles/Vol] 141 mmol/L Normal 136-144 [facility] Comment on above: Order Comment: Speci men Type: BLOOD SPECIMEN Ordering Facility: [facility] Address: [address] [place] [address] Performed By: #### 5 7021-8 #### [facility] CLIA [id number] [address] [place] [address] [place] Urea nitrogen [Mass/Vol] 13 mg/dL Normal 7-21 [facility] Comment on above: Order Comment: Speci men Type: BLOOD SPECIMEN Ordering Facility: [facility] Address: [address] [place] [address] Performed By: #### 5 7021-8 #### [facility] CLIA [id number] [address] [place] [address] [place] ECG COMPLETEon 08-26-2024 ECG COMPLETE Ventricular Rate : 6 2 BPM Atrial Rate : 62 BPM P-R Interval : 206 ms QRS Duration : 80 ms Q-T Interval : 398 ms QTC Calculation(Bazett) : 403 ms Calculated P Ridgeway : 37 degrees Calculated R [place] : 7 degrees Calculated T Ridgeway : 65 degrees NORMAL SINUS RHYTHM WITH 1ST DEGREE AV BLOCK LOW VOLTAGE PRECORDIAL LEADS BORDERLINE ECG Confirmed by fellow SUDHA SPICER MD ([id number]) on 09/08/2024 11:22:04 AM Confirmed by MD TRICE, PhD, ISA ([id number]) on 09/08/2024 1:41:33 PM NAME : IKE FLANNERY PID : [id number] : 1970 Gender : Female Race : ORD : [id number] Procedure Date : Aug 26 2024 18:20:39 Edit Date : Sep 08 2024 13:41:36 Diagnosis: NORMAL SINUS RHYTHM WITH 1ST DEGREE AV BLOCK LOW VOLTAGE PRECORDIAL LEADS BORDERLINE ECG Confirmed by fellow SUDHA SPICER MD ([id number]) on 09/08/2024 11:22:04 AM Confirmed by MD TRICE, PhD, ISA ([id number]) on 09/08/2024 1:41:33 PM Test Reason : Check QT Location : 170 : G70 G070-30 Overread By : MD TRICE, PhD,ISA Edited By : MD TRICE, PhD,ISA Referred By : PK BOSCH Acquired by : GEORGIANA BUNCH [facility] HISTORY PHYSICALon HISTORY PHYSICAL HNO ID: [id number] Author: GENNA SAHU DO Service: Oncology Author Type: Physician Type: H&P Filed: 08/27/2024 15:23 Note Text: ONCOLOGY: HISTORY AND PHYSICAL Weekdays 7 AM to 5 PM / Weekends 7 AM to 3 PM: Page 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 About 1.5 weeks ago, shortly after starting Xeloda, she noticed slurred speech and right hand weakness (e.g., difficulty signing her name). Her oncologist obtained a CT brain which showed a new intracranial mass, therefore she was sent to [facility] ED. They were not able to obtain an MRI due to the presence of a tissue equine science instructor in her right breast. She was transferred to [facility] to coordinate MRI brain and to transition her multidisciplinary care. Currently she is managed by 4-5 hospitals in [facility] for oncology, ID and plastic surgery with scattered medical records, however would like one centralized medical center. Oncologic History - Primary Cancer: Right breast cancer metastatic to liver and now brain, ER-weakly positive, DC-negative, HER2-negative (IHC 0 on core biopsy, 1+ on residual disease at time of mastectomy). Liver biopsy 07/11/24 was ER-positive (41-50% weak staining), DC-negative, HER2-negative breast primary. - Primary Oncologist: Dr. Bobby Christy, [facility] 07/21/24 - Diagnostic History: Dx 03/2023 by biopsy - BMBx in April 2024 - PET scan 06/12/24 demonstrated an approximately 2.5 cm avid mass in the posterior liver without other findings suggestive of metastatic disease. - Liver biopsy 07/11/24 demonstrated metastatic adenocarcinoma consistent with breast primary that is ER-positive (41-50% weak staining), DC-negative and HER2-negative (IHC 0). - Treatment History: - Neoadjuvant chemo-immunotherapy therapy consisting of pemboliziumab with paclitaxel and carboplatin followed by doxorubicin and cyclophosphamide with continuing pembrolizumab - then bilateral mastectomy with right axillary dissection and tissue equine science instructor reconstruction with multifocal residual disease, [id number] - She received adjuvant radiation and initiated adjuvant anastrozole in about January 2024 or March 2024 - also prescribed adjuvant abemaciclib which she believes she took for only about a week until her course was complicated by an infected seroma requiring removal of the left tissue equine science instructor, mycobacterial infection, and pancytopenia - 10/2023: double [...] magnesium tab, (more content not included)... Normal [facility] Magnesium SerPl-mCncon 08-26 Magnesium [Mass/Vol] 2.1 mg/dL Normal 1.7-2.[address] [facility] Comment on above: Order Comment: Speci men Type: BLOOD SPECIMEN Ordering Facility: [facility] Address: [address] [place] [address] Performed By: #### 5 7021-8 #### [facility] CLIA [id number] [address] [place] [address] [place] NURSING PROGon 08-26-2024 NURSING PROG HNO ID: [id number] Author: CATIE YOO RN Service: Radiology Author [...] August 26, 2024 TIME: 9:39 PM Normal [facility] Phosphate SerPl-mCncon 08-26 Phosphate [Mass/Vol] 3.2 mg/dL Normal 2.7-4.[address] [facility] Comment on above: Order Comment: Speci men Type: BLOOD SPECIMEN Ordering Facility: [facility] Address: [address] [place] [address] Performed By: #### 5 7021-8 #### [facility] CLIA [id number] [address] [place] [address] [place] [address] [place] 36on 08-25-2024 36 RN spoke with Seema from Medical Records at [facility] to request labs from 08/24/24 be faxed to [facility] ID. Fax number confirmed. Normal [facility] Documentationon 08-25-2024 Documentation [id number] Ike Flannery 1970 F Date Provider Department Center 08/25/2024 [facility] He[facility] Family History Adopted: Yes Problem Relation Age of Onset Heart attack Father Family Status - Relation Status Age at Father Normal [facility] 36on 08-24-2024 36 Quique from [employer] called and is faxing the pt;'s results to us. States creatinine is higher and LFT's have increased. [facility] Center Abstracton 08-24-2024 Abstract [id number] Ike Flannery 1970 F Date Provider Department Center 08/24/2024 [facility] Anthony Heal Family History Adopted: Yes Problem Relation Age of Onset Heart attack Father Family Status - Relation Status Age at Father Normal [facility] Erroneous Encounteron 2024 Erroneous Encounter [id number] Ike Flannery 1970 F Date Provider Department Center 08/24/2024 [facility] Anthony Heal Family History Adopted: Yes Problem Relation Age of Onset Heart attack Father Family Status - Relation Status Age at Father Reason for Visit and Comments: Error (VOID this visit) [77] [facility] Orders Onlyon 08-24-2024 Orders Only [id number] Ike Flannery 1970 F Date Provider Department Center 08/24/2024 [facility] Anthony Heal Family History Adopted: Yes Problem Relation Age of Onset Heart attack Father Family Status - Relation Status Age at Father [facility] 36on 08-22-2024 36 I called patient [...] findings with Dr. Herman Lui. Avi Tobar, SukiD, BCPS; Clinical Research Pharmacist [facility] Telephoneon 08-22-2024 Telephone [id number] Ike Flannery 1970 F Date Provider Department Center 08/22/2024 [facility] Anthony Heal Family History Adopted: Yes Problem Relation Age of Onset Heart attack Father Family Status - Relation Status Age at Father Normal [facility] Documentationon 08-19-2024 Documentation [id number] Ike Flannery 1970 F Date Provider Department Center 08/19/2024 [facility] INF Anthony Heal Family History Adopted: Yes Problem Relation Age of Onset Heart attack Father Family Status - Relation Status Age at Father Normal [facility] Documentationon 08-17-2024 Documentation [id number] Ike Flannery 1970 F Date Provider Department Center 08/17/2024 [facility] INF Anthony Heal Family History Adopted: Yes Problem Relation Age of Onset Heart attack Father Family Status - Relation Status Age at Father [facility] 37on 08-16-2024 37 Take levofloxacin either 2 hours before or 2 hours after taking the iron. If you use tums same thing either 2 hours before or 2 hours. [facility] Follow-Upon 08-16-2024 Follow-Up [id number] Ike Flannery 1970 Date Provider Department Center 08/16/2024 [facility] Anthony Heal Family History Adopted: Yes Problem Relation Age of Onset Heart attack Father Family Status - Relation Status Age at Father Level of Service:93836 DC OFFICE/OUTPATIENT ESTABLISHED MOD MDM 30 MIN Reason for Visit and Comments: Follow-up [665197] [facility] ANAEROBIC CULTUREon 08-13-19 25 ANAEROBIC CULTURE CULTURE RESULTS NO GROWTH 5 DAYS Normal [facility] Comment on above: Order Comment: Pre-o p diagnosis:LEFT AXILLA WOUND Performed By: #### A NAC ####[facility] ([facility])[address], [place] [address] VIR FUNGAL CULTURE INCLUDES AVELINA AL SMEARon 08-12-2024 FUNGAL CULTURE INCLUDES FUNGAL SMEAR CULTURE RESULTS MYCOBACTERIUM ABSCESSUS Mycobacterium abscessus FUNGAL SMEAR No fungal elements seen On Direct Smear Normal [facility] Comment on above: Order Comment: Pre-o p diagnosis:LEFT AXILLA WOUNDContact microbiology if further workup is required for M.abscessus.No fungus isolated after 4 weeks. Performed By: #### F XIAO ####[facility] ([facility])[address], [place] [address] VIR TISSUE CULTUREon 08-12-2024 TISSUE CULTURE Normal [facility] Comment on above: Order Comment: Pre-o p diagnosis:LEFT AXILLA WOUNDGrowth Observed At 2nd Day Performed By: #### T ISC ####[facility] ([facility])[address], [place] [address] VIR Abstracton 08-11-2024 Abstract [id number] Ike Flannery 1970 F Date Provider Department Center 08/11/2024 184-[id number], [facility] Anthony Heal Family History Adopted: Yes Problem Relation Age of Onset Heart attack Father Family Status - Relation Status Age at Father Normal [facility] Abstracton 08-03-2024 Abstract [id number] Ike Flannery 1970 F Date Provider Department Center 08/03/2024 184-HU, [facility] Anthony Heal Family History Adopted: Yes Problem Relation Age of Onset Heart attack Father Family Status - Relation Status Age at Father Normal [facility] Documentationon 08-02-2024 Documentation [id number] Ike Flannery 1970 F Date Provider Department Center 08/02/2024 1045-AVI TOBAR [facility] INF Anthony Heal Family History Adopted: Yes Problem Relation Age of Onset Heart attack Father Family Status - Relation Status Age at Father Normal [facility] Orders Onlyon 08-02-2024 Orders Only [id number] Ike Flannery 1970 F Date Provider Department Center 08/02/2024 [id number], HISTORICAL RHC INF Anthony Heal Family History Adopted: Yes Problem Relation Age of Onset Heart attack Father Family Status - Relation Status Age at Father Normal [facility] AMIKACIN PEAK Lester 07-29- 025 LOOK Sent to Reference [facility]. Normal [facility] Comment on above: Order Comment: To be drawn one to two hours after completions of the 1700 dose of Amikacin Performed By: #### A MKP ####[facility] ([facility])[address], [place] [address] VIR BASIC METABOLIC PANELon 07-02 Anion gap [Moles/Vol] 4 mmol/L Low 5-15 [facility] Comment on above: Performed By: #### B MP ####[facility] ([id number])[address] [place] [address] VIR Calcium [Mass/Vol] 8.3 mg/dL Low 8.5-10.5 [facility] Comment on above: Performed By: #### B MP ####[facility] ([id number])[address] [place] [address] VIR Chloride [Moles/Vol] 108 mmol/L Normal 98-109 [facility] Comment on above: Performed By: #### B MP ####[facility] ([id number])[address] [place] [address] VIR CO2 [Moles/Vol] 27 mmol/L Normal 22-32 [facility] Comment on above: Performed By: #### B MP ####[facility] ([id number])[address] [place] [address] VIR Creatinine [Mass/Vol] 0.77 mg/dL Normal 0.40-1.00 [facility] Comment on above: Result Comment: METH OD TRACEABLE TO IDMS STANDARD Performed By: #### B MP ####[facility] ([id number])[address] [place] [address] VIR EGFR (CKD-EPI) NON-RACE DEPENDENT >^90 Normal >=60 [facility] Comment on above: Result Comment: Repo rted eGFR is based on theCKD-EPI 2020 equation that doesnot use a race coefficient. Performed By: #### B MP ####[facility] ([id number])[address] [place] [address] VIR Glucose [Mass/Vol] 81 mg/dL Normal 65-99 [facility] Comment on above: Performed By: #### B MP ####[facility] ([id number])[address] [place] [address] VIR Potassium [Moles/Vol] 4.0 mmol/L Normal 3.5-5.0 [facility] Comment on above: Performed By: #### B MP ####[facility] ([id number])[address] [place] [address] VIR Sodium [Moles/Vol] 139 mmol/L Normal 134-146 [facility] Comment on above: Performed By: #### B MP ####[facility] ([id number])[address] [place] [address] VIR Urea nitrogen [Mass/Vol] 10 mg/dL Normal 5-23 [facility] Comment on above: Performed By: #### B MP ####[facility] ([id number])[address] [place] [address] VIR CBC WITH AUTO DIFFERENTIALon 07-29-2024 BASOPHILS ABSOLUTE COUNT (10*3/UL) BY AUTOMATED COUNT 0.0 10*3/uL Normal 0.0-0.2 [facility] Comment on above: Performed By: #### C BCA ####[facility] ([id number])[address] [place] [address] VIR BASOPHILS RELATIVE PERCENT BY AUTOMATED COUNT 0.8 % Normal [facility] Comment on above: Performed By: #### C BCA ####[facility] ([id number])[address] [place] [address] VIR CELLAVISION DIFFERENTIAL TYPE AUTOMATED DIFFERENTIAL Normal [facility] Comment on above: Performed By: #### C BCA ####[facility] ([id number])[address] [place] [address] VIR Eosinophils (Bld) [#/Vol] 0.3 10*3/uL Normal 0.0-0.4 [facility] Comment on above: Performed By: #### C BCA ####[facility] ([id number])[address] [facility] [place] [address] VIR EOSINOPHILS RELATIVE PERCENT BY AUTOMATED COUNT 5.4 % Normal [facility] Comment on above: Performed By: #### C BCA ####[facility] ([id number])[address] [place] [address] VIR Erythrocyte distribution width (RBC) [Ratio] 17.1 % High 11.5-15 [facility] Comment on above: Performed By: #### C BCA ####[facility] ([id number])[address] [place] [address] VIR Hematocrit (Bld) [Volume fraction] 27.6 % Low 35-47 [facility] Comment on above: Performed By: #### C BCA ####[facility] ([id number])[address] [place] [address] VIR Hemoglobin (Bld) [Mass/Vol] 9.9 g/dL Low 11.7-15.5 [facility] Comment on above: Performed By: #### C BCA ####[facility] ([id number])[address] [place] [address] VIR LYMPHOCYTES ABSOLUTE COUNT (10*3/UL) BY AUTOMATED COUNT 0.6 10*3/uL Low 1.0-3.5 [facility] Comment on above: Performed By: #### C BCA ####[facility] ([id number])[address] [place] [address] VIR LYMPHOCYTES RELATIVE PERCENT BY AUTOMATED COUNT 9.3 % Normal [facility] Comment on above: Performed By: #### C BCA ####[facility] ([id number])[address] [place] [address] VIR MCH (RBC) [Entitic mass] 32.8 pg Normal 27-34 [facility] Comment on above: Performed By: #### C BCA ####[facility] ([id number])[address] [facility] [place] [address] VIR MCHC (RBC) [Mass/Vol] 35.8 g/dL Normal 32-36 [facility] Comment on above: Performed By: #### C BCA ####[facility] ([id number])[address] [facility] [place] [address] VIR MCV (RBC) [Entitic vol] 92 fL Normal 80-100 [facility] Comment on above: Performed By: #### C BCA ####[facility] ([id number])5[address] [facility] [place] [address] VIR MONOCYTES ABSOLUTE COUNT (10*3/UL) BY AUTOMATED COUNT 0.4 10*3/uL Normal 0.0-0.9 [facility] Comment on above: Performed By: #### C BCA ####[facility] ([id number])[address] [place] [address] VIR MONOCYTES RELATIVE PERCENT BY AUTOMATED COUNT 7.0 % Normal [facility] Comment on above: Performed By: #### C BCA ####[facility] ([id number])5[address] [facility] [place] [address] VIR NEUTROPHILS ABSOLUTE COUNT BY AUTOMATED COUNT 4.6 10*3/uL Normal 1.5-6.6 [facility] Comment on above: Performed By: #### C BCA ####[facility] ([id number])5[address] [facility] [place] [address] VIR NEUTROPHILS RELATIVE PERCENT BY AUTOMATED COUNT 77.5 % Normal [facility] Comment on above: Performed By: #### C BCA ####[facility] ([id number])5[address] [facility] [place] [address] VIR Platelet mean volume (Bld) [Entitic vol] 6.9 fL Low 7-12 [facility] Comment on above: Performed By: #### C BCA ####[facility] ([id number])[address] [facility] [place] [address] VIR Platelets (Bld) [#/Vol] 200 10*3/uL Normal 150-450 [facility] Comment on above: Performed By: #### C BCA ####[facility] ([id number])[address] [place] [address] VIR RBC COUNT 3.02 X10E12/L Low 3.8-5.2 [facility] Comment on above: Performed By: #### C BCA ####[facility] ([id number])5[address] [facility] [place] [address] VIR WBC (Bld) [#/Vol] 5.9 10*3/uL Normal 4-11 [facility] Comment on above: Performed By: #### C BCA ####[facility] ([id number])5[address] [facility] [place] [address] VIR BOWMAN GENERIC ORDERon 025 TEST RESULT SEE COMMENTS Normal [facility] Comment on above: Result Comment: Test Result Flag Unit RefValue Amikacin, Peak, S 20.1 mcg/mL 20.0 - 35.0 Test Performed by: [facility] [address] [place] [address] Consultant: Colten Sosa Ph.D.; CLIA# [id number] Performed By: #### M GO ####[facility] Cardback (SDL)[address] [place] [address] VIR 36on 07-28-2024 36 VM and callback left to verify patient received and infused 900mg amikacin Normal [facility] BASIC METABOLIC PANELon 07-01 Anion gap [Moles/Vol] 7 mmol/L Normal 5-15 [facility] Comment on above: Performed By: #### B MP ####[facility] ([id number])[address] [place] [address] VIR Calcium [Mass/Vol] 8.2 mg/dL Low 8.5-10.5 [facility] Comment on above: Performed By: #### B MP ####[facility] ([id number])[address] [place] [address] VIR Chloride [Moles/Vol] 106 mmol/L Normal 98-109 [facility] Comment on above: Performed By: #### B MP ####[facility] ([id number])[address] [facility] [place] [address] VIR CO2 [Moles/Vol] 24 mmol/L Normal 22-32 [facility] Comment on above: Performed By: #### B MP ####[facility] ([id number])5200 [facility] [place] [address] VIR Creatinine [Mass/Vol] 0.65 mg/dL Normal 0.40-1.00 [facility] Comment on above: Result Comment: METH OD TRACEABLE TO IDMS STANDARD Performed By: #### B MP ####[facility] ([id number])5200 [facility] [place] [address] VIR EGFR (CKD-EPI) NON-RACE DEPENDENT >^90 Normal >=60 [facility] Comment on above: Result Comment: Repo rted eGFR is based on theCKD-EPI 2020 equation that doesnot use a race coefficient. Performed By: #### B MP ####[facility] ([id number])[address] [place] [address] VIR Glucose [Mass/Vol] 82 mg/dL Normal 65-99 [facility] Comment on above: Performed By: #### B MP ####[facility] ([id number])5[address] [facility] [place] [address] VIR Potassium [Moles/Vol] 3.8 mmol/L Normal 3.5-5.0 [facility] Comment on above: Performed By: #### B MP ####[facility] ([id number])[address] [place] [address] VIR Sodium [Moles/Vol] 137 mmol/L Normal 134-146 [facility] Comment on above: Performed By: #### B MP ####[facility] ([id number])5[address] [place] [address] VIR Urea nitrogen [Mass/Vol] 12 mg/dL Normal 5-23 [facility] Comment on above: Performed By: #### B MP ####[facility] ([id number])[address] [place] [address] VIR CBC WITH AUTO DIFFERENTIALon 07-28-2024 BASOPHILS ABSOLUTE COUNT (10*3/UL) BY AUTOMATED COUNT 0.0 10*3/uL Normal 0.0-0.2 [facility] Comment on above: Performed By: #### C BCA ####[facility] ([id number])[address] [place] [address] VIR BASOPHILS RELATIVE PERCENT BY AUTOMATED COUNT 0.5 % Normal [facility] Comment on above: Performed By: #### C BCA ####[facility] ([id number])[address] [place] [address] VIR CELLAVISION DIFFERENTIAL TYPE AUTOMATED DIFFERENTIAL Normal [facility] Comment on above: Performed By: #### C BCA ####[facility] ([id number])5[address] [place] [address] VIR Eosinophils (Bld) [#/Vol] 0.2 10*3/uL Normal 0.0-0.4 [facility] Comment on above: Performed By: #### C BCA ####[facility] ([id number])[facility] [place] [address] VIR EOSINOPHILS RELATIVE PERCENT BY AUTOMATED COUNT 4.5 % Normal [facility] Comment on above: Performed By: #### C BCA ####[facility] ([id number])[facility] [place] [address] VIR Erythrocyte distribution width (RBC) [Ratio] 17.1 % High 11.5-15 [facility] Comment on above: Performed By: #### C BCA ####[facility] ([id number])5[address] [place] [address] VIR Hematocrit (Bld) [Volume fraction] 25.9 % Low 35-47 [facility] Comment on above: Performed By: #### C BCA ####[facility] ([id number])5[address] [place] [address] VIR Hemoglobin (Bld) [Mass/Vol] 9.0 g/dL Low 11.7-15.5 [facility] Comment on above: Performed By: #### C BCA ####[facility] ([id number])[address] [place] [address] VIR LYMPHOCYTES ABSOLUTE COUNT (10*3/UL) BY AUTOMATED COUNT 0.3 10*3/uL Low 1.0-3.5 [facility] Comment on above: Performed By: #### C BCA ####[facility] ([id number])[address] [place] [address] VIR LYMPHOCYTES RELATIVE PERCENT BY AUTOMATED COUNT 6.1 % Normal [facility] Comment on above: Performed By: #### C BCA ####[facility] ([id number])[facility] [place] [address] VIR MCH (RBC) [Entitic mass] 31.9 pg Normal 27-34 [facility] Comment on above: Performed By: #### C BCA ####[facility] ([id number])5[address] [place] [address] VIR MCHC (RBC) [Mass/Vol] 34.6 g/dL Normal 32-36 [facility] Comment on above: Performed By: #### C BCA ####[facility] ([id number])5200 [place] [address] VIR MCV (RBC) [Entitic vol] 92 fL Normal 80-100 [facility] Comment on above: Performed By: #### C BCA ####[facility] ([id number])[address] [place], [place] [address], [place] [address] VIR MONOCYTES ABSOLUTE COUNT (10*3/UL) BY AUTOMATED COUNT 0.3 10*3/uL Normal 0.0-0.9 [facility] Comment on above: Performed By: #### C BCA ####[facility] ([id number])5[address] [facility] [place] [address] VIR MONOCYTES RELATIVE PERCENT BY AUTOMATED COUNT 5.4 % Normal [facility] Comment on above: Performed By: #### C BCA ####[facility] ([id number])5200 [facility] [place] [address] VIR NEUTROPHILS ABSOLUTE COUNT BY AUTOMATED COUNT 4.2 10*3/uL Normal 1.5-6.6 [facility] Comment on above: Performed By: #### C BCA ####[facility] ([id number])[address] [place] [address] VIR NEUTROPHILS RELATIVE PERCENT BY AUTOMATED COUNT 83.5 % Normal [facility] Comment on above: Performed By: #### C BCA ####[facility] ([id number])[address] [place] [address] VIR Platelet mean volume (Bld) [Entitic vol] 6.8 fL Low 7-12 [facility] Comment on above: Performed By: #### C BCA ####[facility] ([id number])5200 [facility] [place] [address] VIR Platelets (Bld) [#/Vol] 195 10*3/uL Normal 150-450 [facility] Comment on above: Performed By: #### C BCA ####[facility] ([id number])5200 [facility] [place] [address] VIR RBC COUNT 2.81 X10E12/L Low 3.8-5.2 [facility] Comment on above: Performed By: #### C BCA ####[facility] ([id number])5200 [facility] [place] [address] VIR WBC (Bld) [#/Vol] 5.1 10*3/uL Normal 4-11 [facility] Comment on above: Performed By: #### C BCA ####[facility] ([id number])[address] [place] [address] VIR FERRITINon 07-28-2024 Ferritin [Mass/Vol] 374 ng/mL High 11-307 [facility] Comment on above: Performed By: #### F ERR ####[facility] ([id number])[address] [place] [address] VIR FOLATEon 07-28-2024 FOLIC ACID 6.9 ng/mL Normal >5.8 [facility] Comment on above: Performed By: #### F AKSHAT ####[facility] ([facility])[address], [place] [address] VIR IRON AND TIBCon 07-28-2024 Iron [Mass/Vol] 26 ug/dL Low 50-170 [facility] Comment on above: Performed By: #### F EPR ####[facility] ([facility])[address], [place] [address] VIR IRON BINDING 270 ug/dL Normal 250-425 [facility] Comment on above: Performed By: #### F EPR ####[facility] ([facility])[address], [place] [address] VIR IRON SATURATION 10 % SATURATION Low 15-50 [facility] Comment on above: Performed By: #### F EPR ####[facility] ([facility])[address], [place] [address] VIR Transferrin [Mass/Vol] 193 mg/dL Normal 168-336 [facility] Comment on above: Performed By: #### F EPR ####[facility] ([facility])[address], [place] [address] VIR PREALBUMINon 07-28-2024 Prealbumin [Mass/Vol] 19 mg/dL Normal 18-45 [facility] Comment on above: Performed By: #### P AB ####[facility] ([facility])[address], [place] [address] VIR VITAMIN B12on 07-28-2024 Cobalamin (Vitamin B12) [Mass/Vol] 984 pg/mL High 180-914 [facility] Comment on above: Performed By: #### B 12 ####[facility] ([facility])[address], [place] [address] VIR [employer] CULTURE CON[employer]ENTRATED INC [employer] SMEARon 07-27-2024 AFB CULTURE CONCENTRATED INCLUDES AFB SMEAR CULTURE RESULTS NO ACID FAST BACILLI ISOLATED IN 8 WEEKS AFB SMEAR No Acid Fast Bacili (Concentrated Smear) Normal [facility] Comment on above: Order Comment: Pre-o p diagnosis:LEFT BREAST WOUND Performed By: #### A FBCON ####[facility] ([facility])[address] [facility] [address], [place] [address] VIR [employer] CULTURE CONCENTRATED INCLUDES [employer] SMEAR Normal [place] [facility] Comment on above: Order Comment: Pre-o p diagnosis:LEFT BREAST WOUND Performed By: #### A FBCON ####[facility] ([facility])[address], [place] [address] VIR 36on 07-22-2024 36 Patient was called [...] goal peak of around 35 mcg/mL. Avi Toabr, SukiD, [facility]; Clinical Research Pharmacist [facility] Delia 07-22-2024 AKILAH Telephone (HEMCA3) IKE FLANNERY ([id number]) 1970 F Date Time Provider Department 07/22/24 BOBBY CHRISTY HEMCA3 During your visit today, we recorded the following information about you: Karen Mirza 07/22/2024 8:51 AM Signed Ike Flannery is calling Bobby Christy MD today regarding Education Diagnostician - Other Patient called to let Dr. Chrisyt know that she remembered that her other oncologist prescribed Xeloda for her and she still has it. She wanted Dr. Christy to know so that she didn't go through the process of prescribing it for her. Is it ok for her to use what she has? Patient has been identified by name and birthdate. Requesting response back: [phone] (home) [phone] (cell) Karen Mirza July 22, 2024 Saman Joe RN 07/22/2024 [...] RN - Fully Assessed Reason for Visit: Education Diagnostician - Other [3602] Prescriptions as of 07/27/2024 [...] Status:Closed by SAMAN JOE on 07/27/24 Normal [facility] OUTSIDE SURG PATH SLIDE REVI EWon 07-22-2024 ADDENDUM 1: Normal [facility] Comment on above: Order Comment: Speci men Type: FORMALIN-FIXED PARAFFIN-EMBEDDED TISSUE SPECIMENOrdering Facility: AP Outside Review Address: , , Result Comment: Adonay tubbs biomarkers (ER, PgR, and HER2) performed at the outside institution are available for review at the [facility] and demonstrate the tumor cells to be positive for ER (30% nuclear staining of tumor cells with moderate staining intensity), negative for DC (<1% nuclear staining of tumor cells), and negative for HER2 (score of 1+). [facility] 08/09/24 Addendum electronically signed by Kev Kang MD on 08/09/2024 at 0901 EDT Performed By: #### L [id number] ####[facility] LAB[facility]IA [id number] [address] [place] AP DISCLAIMER Normal [facility] Comment on above: Order Comment: Speci men Type: FORMALIN-FIXED PARAFFIN-EMBEDDED TISSUE SPECIMENOrdering Facility: AP Outside Review Address: , , Result Comment: Jarod lorenzo Developed Test (LDT) Disclaimer: Performance characteristics of immunohistochemical, immunofluorescent, and chromogenic in-situ hybridization tests have been determined by the performing laboratory within [facility]'s Candice Lala Pathology and Laboratory Medicine Department ([facility], [facility], [facility], [facility], [facility], or [facility]) in a manner consistent with CLIA requirements. One or more of these tests may not have been cleared or approved by the FDA. [facility] is regulated under CLIA as qualified to perform high-complexity testing. These tests are used for clinical purposes. These should not be regarded as investigational or for research. Positive and negative controls stain appropriately. Performed By: #### L [id number] ####[facility] [id number] [address] [address] [facility] CASE REPORT Normal [facility] Comment on above: Order Comment: Anitha alex Type: FORMALIN-FIXED PARAFFIN-EMBEDDED TISSUE SPECIMENOrdering Facility: AP Outside Review Address: , , Result Comment: [facility] Path[facility] Report Case: [id number] Authorizing Provider: Bobby Christy MD Collected: 07/22/2024 03:52 PM Ordering Location: [facility] Received: 07/22/2024 03:51 PM [facility] Pathologist: Michael López MD Specimen: Slide(s), 11 SLIDES [id number] Performed By: #### L [id number] ####[facility] LABIA [id number] [address] [address] [facility] DIAGNOSIS COMMENT Tumor cells are positive for CK7 and GATA3, with weak expression for ER. Negative stains include CK19, DC, and CDX2. Normal [facility] Comment on above: Order Comment: Anitha alex Type: FORMALIN-FIXED PARAFFIN-EMBEDDED TISSUE SPECIMENOrdering Facility: AP Outside Review Address: , , Performed By: #### L [id number] ####[facility] LABIA [id number] [address] [address] [facility] FINAL DIAGNOSIS Normal [facility] Comment on above: Order Comment: Anitha alex Type: FORMALIN-FIXED PARAFFIN-EMBEDDED TISSUE SPECIMENOrdering Facility: AP Outside Review Address: , , Result Comment: Live r mass, biopsy: - Adenocarcinoma, compatible with breast origin. at 1337 EDT Performed By: #### L [id number] ####[facility] LABCLIA [id number] [address] OF [facility] FINAL PERFORMING LAB Normal [facility] Comment on above: Order Comment: Speci men Type: FORMALIN-FIXED PARAFFIN-EMBEDDED TISSUE SPECIMENOrdering Facility: Outside Review Address: , , Result Comment: Diag nostic interpretation performed at: [facility], [address], [place] [address] CLIA# [id number] Laboratory Immunologist: Derick Meadows MD Performed By: #### L [id number] ####[facility] LABCLIA [id number] [address] OF [facility] Orders Onlyon 07-22-2024 Orders Only [id number] Ike Flannery 1970 F Date Provider Department Center 07/22/2024 [facility] INFEC [facility] Family History Adopted: Yes Problem Relation Age of Onset Heart attack Father Family Status - Relation Status Age at Father Normal [facility] Telephoneon 07-22-2024 Telephone [id number] Ike Flannery 1970 F Date Provider Department Center 07/22/2024 [facility] INF Anthony Heal Family History Adopted: Yes Problem Relation Age of Onset Heart attack Father Family Status - Relation Status Age at Father Normal [facility] CNOVSPon 07-21-2024 CNOVSP Visit (SP) Office (HEMCA4) IKE FLANNERY ([id number]) 1970 F Date Time Provider Department 07/21/24 [...] with a lymph-node positive ER-weakly positive (12-15%), DC-negative, HER2-negative (IHC 0 on core biopsy, 1+ on residual disease at time of mastectomy) right breast cancer in March 2023. She was treated with neoadjuvant chemo-immunotherapy therapy consisting of pemboliziumab with paclitaxel and carboplatin followed by doxorubicin and cyclophosphamide with continuing pembrolizumab then underwent bilateral mastectomy with right axillary dissection and tissue equine science instructor reconstruction at which time there was multifocal residual disease, [id number]. She received adjuvant radiation and initiated adjuvant anastrozole in about January 2024 or March 2024. She was also prescribed adjuvant abemaciclib which she believes she took for only about a week until her course was complicated by an infected seroma requiring removal of the left tissue equine science instructor, mycobacterial infection, and pancytopenia. She had a BMBx in April and is interested in having that reviewed at [facility]. She has been dealing with issues [...] primary that is ER-positive (41-50% weak staining), DC-negative and HER2-negative (IHC 0). PMH: She has a h/o HTN, DVT (on Eliquis); she is s/p hysterectomy and subsequent BSO. FH:She is adopted and family history is not known. 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 She is engaged [...] for transaminase elevations. IMPRESSION: Metastatic ER-weakly positive, DC-negative, HER2-negative breast cancer involving liver with mycobaterium [...] up referral to Dr. Owusu here at [facility]. We discussed potential future treatment options [...] which included preparing to see the patient, [id number] patient care, completing clinical documentation, performing a medically appropriate examination, counseling and educating the patient/family/caregiv er, and communicating with other HCPs (not separately reported). Bobby Christy MD CC: Tosha Hansen RN 07/21/2024 4:48 PM Signed Additional in (more content not included)... Normal [facility] CNOVon 07-19-2024 CNOV Office Visit (INFDMN ) IKE FLANNERY ([id number]) 1970 F Date Time Provider Department 07/19/24 8:00 AM KRYSTIN BARRAGAN INFN During your visit today, we recorded the following information about you: Temperature Pulse Respiration Blood pressure 96.8 degrees 72/minute 18/minute 138/84 Weight 88.5 kg Krystin Barragan MD 07/27/2024 9:06 AM Signed [facility]FECTIOUS DISEAS[facility] Ike Flannery is being seen [...] 28/2024 followed by bilateral mastectomy with bilateral equine science instructor placement, complicated by large L side large seroma. - 10/2023 bilateral skin sparing mastectomies and tissue explander reconstruction complicated by infected seroma L side - 11/27/2023 : Left breast IANDD and equine science instructor removal - intra op cx pos for [...] mg total (more content not included)... Normal [facility] Orders Onlyon 07-19-2024 Orders Only [id number] Ike Flannery 1970 F Date Provider Department Center 07/19/2024 [id number], HISTORICAL [facility] INF [facility] Family History Adopted: Yes Problem Relation Age of Onset Heart attack Father Family Status - Relation Status Age at Father Normal [facility] 36on 07-12-2024 36 Patient reached out to [...] omadacycline to treat her infection. I called [facility] to let them know about [...] home and documenting the times/readings in her traffic and transport planner so that she can share them with primary care. She confirmed that she knows appropriate technique for checking BP. I also encouraged her to call primary care as soon as possible to make an appointment and re-establish care with them. Avi Tobar, PharmD, [facility] Telephoneon 07-12-2024 Telephone [id number] Ike Flannery Yumi 1970 F Date Provider Department Center 07/12/2024 [facility] IN[facility] Anthony Heal Family History Adopted: Yes Problem Relation Age of Onset Heart attack Father Family Status - Relation Status Age at Father Normal [facility] APTTon 07-11-2024 aPTT Coag (Bld) [Time] 32 s Normal 26-37 [facility] Comment on above: Performed By: #### P TT ####[facility] ([id number])7[address] [place] [address] VIR IR PERCUTANEOUS BX LIVERon 0 07-11-2024 IR PERCUTANEOUS BX LIVER Normal [facility] PLATELET COUNTon 07-11-2024 Platelet mean volume (Bld) [Entitic vol] 7.1 fL Normal 7-12 [facility] Comment on above: Performed By: #### P LTCT ####[facility] ([id number])5200 [place] [address] VIR Platelets (Bld) [#/Vol] 258 10*3/uL Normal 150-450 [facility] Comment on above: Performed By: #### P LTCT ####[facility] ([id number])5200 [place] [address] VIR PROTIME AND INRon 07-11-2024 INR 1.0 Normal 0.9-1.2 [facility] Comment on above: Performed By: #### P INR ####[facility] ([id number])5[address] [place] [address] VIR PT Coag (PPP) [Time] 10.9 s Normal 9.8-13.2 [facility] Comment on above: Performed By: #### P INR ####[facility] ([id number])5[address] [place] [address] VIR Orders Onlyon 07-06-2024 Orders Only [id number] Iek Flannery 1970 F Date Provider Department Center 07/06/2024 [id number], HISTORICAL [facility] INF Anthony Heal Family History Adopted: Yes Problem Relation Age of Onset Heart attack Father Family Status - Relation Status Age at Father Normal [facility] Orders Onlyon 07-05-2024 Orders Only [id number] Ike Flannery 1970 F Date Provider Department Center 07/05/2024 [id number], HISTORICAL [facility] Anthony Heal Family History Adopted: Yes Problem Relation Age of Onset Heart attack Father Family Status - Relation Status Age at Father Normal [facility] Documentationon 06-30-2024 Documentation [id number] Ike Flannery 1970 F Date Provider Department Center 06/30/2024 AVI BO [facility] INF Anthony Heal Family History Adopted: Yes Problem Relation Age of Onset Heart attack Father Family Status - Relation Status Age at Father [facility] Documentation [id number] Ike Flanneyr 1970 Provider Department Center 06/30/2024 [facility] Anthony Heal Family History Adopted: Yes Problem Relation Age of Onset Heart attack Father Family Status - Relation Status Age at Father Reason for Visit and Comments: Telephone call to [facility] [Other] [facility] Follow-Upon 06-30-2024 Follow-Up [id number] Ike Flannery 1970 Date Provider Department Center 06/30/2024 [facility] Anthony Heal Family History Adopted: Yes Problem Relation Age of Onset Heart attack Father Family Status - Relation Status Age at Father Level of Service:21381 DC OFFICE/OUTPATIENT ESTABLISHED MOD MDM 30 MIN [facility] Orders Onlyon 06-30-2024 Orders Only [id number] Ike Flannery 1970 Provider Department Center 06/30/2024 [id number], HISTORICAL [facility] Anthony Heal Family History Adopted: Yes Problem Relation Age of Onset Heart attack Father Family Status - Relation Status Age at Father [facility] 06-28-2024 36 I am not sure if you want this refilled [facility] 36on 06-22-2024 36 RN called to request most recent labs be faxed to [facility] ID. Fax number confirmed [facility] Refillon 06-21-2024 Refill [id number] Ike Flannery 1970 Date Provider Department Center 06/21/2024 [facility] Anthony Heal Family History Adopted: Yes Problem Relation Age of Onset Heart attack Father Family Status - Relation Status Age at Father Reason for Visit and Comments: Med Refill [[id number]] [facility] Refill [id number] Ike Flannery 1970 Date Provider Department Center 06/21/2024 870-ODALYS DAVIS [facility] Anthony Heal Family History Adopted: Yes Problem Relation Age of Onset Heart attack Father Family Status - Relation Status Age at Father Reason for Visit and Comments: Med Refill [[id number]] Normal [facility] CT CHEST WO CONTon CT CHEST WO CONT CT CHEST WO CONT *ADDENDUM*An addendum is being issued for billing: Minimal calcified coronary arterial disease. Finalized by Nemesio Berrios MD on 06/20/2024 2:39 PM Normal [facility] CBC AND AUTO DIFFon 06-16-19 25 ABSOLUTE BASOPHIL 0.0 X10E9/L Normal 0.0-0.2 [facility] Comment on above: Performed By: #### C BCA, CMP ####[facility] ([id number])5200 [place] [address] ABSOLUTE NEUTROPHIL 4.0 X10E9/L Normal 1.5-6.6 [facility] Comment on above: Performed By: #### C BCA, CMP ####[facility] ([id number])5200 [place] [address] Basophils/100 WBC (Bld) 0.7 % Normal [facility] Comment on above: Performed By: #### C BCA, CMP ####[facility] ([id number])5200 [place] [address] Eosinophils (Bld) [#/Vol] 0.3 10*3/uL Normal 0.0-0.4 [facility] Comment on above: Performed By: #### C BCA, CMP ####[facility] ([id number])5200 [place] [address] Eosinophils/100 WBC (Bld) 6.2 % Normal [facility] Comment on above: Performed By: #### C BCA, CMP ####[facility] ([id number])5200 [place] [address] Erythrocyte distribution width (RBC) [Ratio] 19.1 % High 11.5-15.0 [facility] Comment on above: Performed By: #### C BCA, CMP ####[facility] ([id number])5200 [place] [address] Hematocrit (Bld) [Volume fraction] 27.6 % Low 35-47 [facility] Comment on above: Performed By: #### C BCA, CMP ####[facility] ([id number])5200 [place] [address] Hemoglobin (Bld) [Mass/Vol] 9.4 g/dL Low 11.7-15.5 [facility] Comment on above: Performed By: #### C BCA, CMP ####[facility] ([id number])5200 [place] [address] Lymphocytes (Bld) [#/Vol] 0.7 10*3/uL Low 1.0-3.5 [facility] Comment on above: Performed By: #### C BCA, CMP ####[facility] ([id number])5200 [place] [address] Lymphocytes/100 WBC (Bld) 12.9 % Normal [facility] Comment on above: Performed By: #### C BCA, CMP ####[facility] ([id number])5200 [place] [address] MCH (RBC) [Entitic mass] 30.9 pg Normal 27-34 [facility] Comment on above: Performed By: #### C BCA, CMP ####[facility] ([id number])5200 [place] [address] MCHC (RBC) [Mass/Vol] 33.9 g/dL Normal 32-36 [facility] Comment on above: Performed By: #### C BCA, CMP ####[facility] ([id number])5200 [place] [address] MCV (RBC) [Entitic vol] 91 fL Normal 80-100 [facility] Comment on above: Performed By: #### C BCA, CMP ####[facility] ([id number])5[address] [place] [address] Monocytes (Bld) [#/Vol] 0.6 10*3/uL Normal 0-0.9 [facility] Comment on above: Performed By: #### C BCA, CMP ####[facility] ([id number])5200 [facility] [place] [address] Monocytes/100 WBC (Bld) 10.3 % Normal [facility] Comment on above: Performed By: #### C BCA, CMP ####[facility] ([id number])5200 [facility] [place] [address] Neutrophils/100 WBC (Bld) 69.9 % Normal [facility] Comment on above: Performed By: #### C BCA, CMP ####[facility] ([id number])5200 [facility] [place] [address] Platelet mean volume (Bld) [Entitic vol] 7.1 fL Normal 7-12 [facility] Comment on above: Performed By: #### C BCA, CMP ####[facility] ([id number])5200 [facility] [place] [address] Platelets (Bld) [#/Vol] 227 10*3/uL Normal 150-450 [facility] Comment on above: Performed By: #### C BCA, CMP ####[facility] ([id number])5200 [facility] [place] [address] RBC COUNT 3.03 X10E12/L Low 3.80-5.20 [facility] Comment on above: Performed By: #### C BCA, CMP ####[facility] ([id number])5200 [facility] [place] [address] WBC (Bld) [#/Vol] 5.7 10*3/uL Normal 4.0-11.0 [facility] Comment on above: Performed By: #### C BCA, CMP ####[facility] ([id number])5200 [facility] [place] [address] COMPREHENSIVE METABOLIC PANE [place] 06-15-2024 Albumin [Mass/Vol] 3.2 g/dL Normal 3.2-5.3 [facility] Comment on above: Performed By: #### C BCA, CMP ####[facility] ([id number])5200 [place] [address] ALP [Catalytic activity/Vol] 64 U/L Normal 39-130 [facility] Comment on above: Performed By: #### C BCA, CMP ####[facility] ([id number])5200 [place] [address] ALT [Catalytic activity/Vol] 11 U/L Normal 0-31 [facility] Comment on above: Performed By: #### C BCA, CMP ####[facility] ([id number])5200 [place] [address] Anion gap [Moles/Vol] 5 mmol/L Normal 5-15 [facility] Comment on above: Performed By: #### C BCA, CMP ####[facility] ([id number])5200 [facility] [place] [address] AST [Catalytic activity/Vol] 13 U/L Normal 0-41 [facility] Comment on above: Performed By: #### C BCA, CMP ####[facility] ([id number])5200 [facility] [place] [address] Bilirubin [Mass/Vol] 0.7 mg/dL Normal 0.3-1.2 [facility] Comment on above: Performed By: #### C BCA, CMP ####[facility] ([id number])5200 [facility] [place] [place] [address] Calcium [Mass/Vol] 9.2 mg/dL Normal 8.5-10.5 [facility] Comment on above: Performed By: #### C BCA, CMP ####[facility] ([id number])5200 [place] [address] Chloride [Moles/Vol] 104 mmol/L Normal 98-109 [facility] Comment on above: Performed By: #### C BCA, CMP ####[facility] ([id number])5200 [facility] [place] [address] CO2 [Moles/Vol] 29 mmol/L Normal 22-32 [facility] Comment on above: Performed By: #### C BCA, CMP ####[facility] ([id number])5200 [facility] [place] [address] Creatinine [Mass/Vol] 0.68 mg/dL Normal 0.40-1.00 [facility] Comment on above: Result Comment: METH OD TRACEABLE TO IDMS STANDARD Performed By: #### C BCA, CMP ####[facility] ([id number])5200 [place] [address] eGFR (CKD-EPI) NON-RACE DEPENDENT >90 Normal >59 [facility] Comment on above: Result Comment: Repo rted eGFR is based on theCKD-EPI 2020 equation that doesnot use a race coefficient. Performed By: #### C BCA, CMP ####[facility] ([id number])5200 [place] [address] Glucose [Mass/Vol] 87 mg/dL Normal 65-99 [facility] Comment on above: Performed By: #### C BCA, CMP ####[facility] ([id number])5200 [facility] [place] [address] Potassium [Moles/Vol] 3.7 mmol/L Normal 3.5-5.0 [facility] Comment on above: Performed By: #### C BCA, CMP ####[facility] ([id number])5200 [place] [address] Protein [Mass/Vol] 5.3 g/dL Low 6.0-8.0 [facility] Comment on above: Performed By: #### C BCA, CMP ####[facility] ([id number])5200 [facility] [place] [address] Sodium [Moles/Vol] 138 mmol/L Normal 134-146 [facility] Comment on above: Performed By: #### C BCA, CMP ####[facility] ([id number])5200 [facility] [place] [address] Urea nitrogen [Mass/Vol] 16 mg/dL Normal 5-23 [facility] Comment on above: Performed By: #### C BCA, CMP ####[facility] ([id number])5200 [facility] [place] [address] BOWMAN GENERIC ORDERon 025 TEST NAME NAIMA AMIKACIN PEAK SERUM Normal [facility] Comment on above: Performed By: #### G O ####[facility] ([id number])5200 [facility] [place] [address] TEST RESULT SEE COMMENTS 06/16/2024 12:45 PM Abnormal [facility] Comment on above: Result Comment: NOTE Test Result Flag Unit RefValue Amikacin, Peak, S 18.1 L mcg/mL 20.0 - 35.0 Test Performed by: [place] [address] As[address] Consultant: Colten Sosa Ph.D.; CLIA# [id number] Performed By: #### G O ####[facility] ([id number])5200 [place] [address] CBC AND AUTO DIFFon 06-15-19 25 ABSOLUTE BASOPHIL 0.1 X10E9/L Normal 0.0-0.2 [facility] Comment on above: Performed By: #### C BCA, CMP ####[facility] ([id number])5200 [facility] [place] [address] ABSOLUTE NEUTROPHIL 5.1 X10E9/L Normal 1.5-6.6 [facility] Comment on above: Performed By: #### C BCA, CMP ####[facility] ([id number])5200 [place] [address] Basophils/100 WBC (Bld) 0.9 % Normal [facility] Comment on above: Performed By: #### C BCA, CMP ####[facility] ([id number])5200 [facility] [place] [address] Eosinophils (Bld) [#/Vol] 0.4 10*3/uL Normal 0.0-0.4 [facility] Comment on above: Performed By: #### C BCA, CMP ####[facility] ([id number])5200 [place] [address] Eosinophils/100 WBC (Bld) 6.2 % Normal [facility] Comment on above: Performed By: #### C BCA, CMP ####[facility] ([id number])5200 [place] [address] Erythrocyte distribution width (RBC) [Ratio] 19.4 % High 11.5-15.0 [facility] Comment on above: Performed By: #### C BCA, CMP ####[facility] ([id number])5200 [place] [address] Hematocrit (Bld) [Volume fraction] 27.6 % Low 35-47 [facility] Comment on above: Performed By: #### C BCA, CMP ####[facility] ([id number])5200 [facility] [place] [address] Hemoglobin (Bld) [Mass/Vol] 9.3 g/dL Low 11.7-15.5 [facility] Comment on above: Performed By: #### C BCA, CMP ####[facility] ([id number])5200 [facility] [place] [address] Lymphocytes (Bld) [#/Vol] 0.8 10*3/uL Low 1.0-3.5 [facility] Comment on above: Performed By: #### C BCA, CMP ####[facility] ([id number])5200 [facility] [place] [address] Lymphocytes/100 WBC (Bld) 10.8 % Normal [facility] Comment on above: Performed By: #### C BCA, CMP ####[facility] ([id number])5200 [facility] [place] [address] MCH (RBC) [Entitic mass] 30.6 pg Normal 27-34 [facility] Comment on above: Performed By: #### C BCA, CMP ####[facility] ([id number])5200 [facility] [place] [address] MCHC (RBC) [Mass/Vol] 33.6 g/dL Normal 32-36 [facility] Comment on above: Performed By: #### C BCA, CMP ####[facility] ([id number])5200 [facility] [place] [address] MCV (RBC) [Entitic vol] 91 fL Normal 80-100 [facility] Comment on above: Performed By: #### C BCA, CMP ####[facility] ([id number])5[address] [place] [address] Monocytes (Bld) [#/Vol] 0.6 10*3/uL Normal 0-0.9 [facility] Comment on above: Performed By: #### C BCA, CMP ####[facility] ([id number])5[address] [place] [address] Monocytes/100 WBC (Bld) 8.9 % Normal [facility] Comment on above: Performed By: #### C BCA, CMP ####[facility] ([id number])5[address] [place] [address] Neutrophils/100 WBC (Bld) 73.2 % Normal [facility] Comment on above: Performed By: #### C BCA, CMP ####[facility] ([id number])5200 [facility] [place] [address] Platelet mean volume (Bld) [Entitic vol] 7.0 fL Normal 7-12 [facility] Comment on above: Performed By: #### C BCA, CMP ####[facility] ([id number])5200 [facility] [place] [address] Platelets (Bld) [#/Vol] 235 10*3/uL Normal 150-450 [facility] Comment on above: Performed By: #### C BCA, CMP ####[facility] ([id number])5200 [facility] [place] [address] RBC COUNT 3.03 X10E12/L Low 3.80-5.20 [facility] Comment on above: Performed By: #### C BCA, CMP ####[facility] ([id number])5200 [place] [address] WBC (Bld) [#/Vol] 7.0 10*3/uL Normal 4.0-11.0 [facility] Comment on above: Performed By: #### C BCA, CMP ####[facility] ([id number])5[address] [place] [address] COMPREHENSIVE METABOLIC PANE [place] 06-14-2024 Albumin [Mass/Vol] 3.2 g/dL Normal 3.2-5.3 [facility] Comment on above: Performed By: #### C BCA, CMP ####[facility] ([id number])5200 [place] [address] ALP [Catalytic activity/Vol] 66 U/L Normal 39-130 [facility] Comment on above: Performed By: #### C BCA, CMP ####[facility] ([id number])5200 [place] [address] ALT [Catalytic activity/Vol] 14 U/L Normal 0-31 [facility] Comment on above: Performed By: #### C BCA, CMP ####[facility] ([id number])5[address] [place] [address] Anion gap [Moles/Vol] 6 mmol/L Normal 5-15 [facility] Comment on above: Performed By: #### C BCA, CMP ####[facility] ([id number])5200 [place] [address] AST [Catalytic activity/Vol] 18 U/L Normal 0-41 [facility] Comment on above: Performed By: #### C BCA, CMP ####[facility] ([id number])5200 [place] [address] Bilirubin [Mass/Vol] 0.5 mg/dL Normal 0.3-1.2 [facility] Comment on above: Performed By: #### C BCA, CMP ####[facility] ([id number])5200 [facility] [place] [address] Calcium [Mass/Vol] 8.9 mg/dL Normal 8.5-10.5 [facility] Comment on above: Performed By: #### C BCA, CMP ####[facility] ([id number])5200 [facility] [place] [address] Chloride [Moles/Vol] 106 mmol/L Normal 98-109 [facility] Comment on above: Performed By: #### C BCA, CMP ####[facility] ([id number])5200 [facility] [place] [address] CO2 [Moles/Vol] 28 mmol/L Normal 22-32 [facility] Comment on above: Performed By: #### C BCA, CMP ####[facility] ([id number])5200 [facility] [place] [address] Creatinine [Mass/Vol] 0.71 mg/dL Normal 0.40-1.00 [facility] Comment on above: Result Comment: METH OD TRACEABLE TO IDMS STANDARD Performed By: #### C BCA, CMP ####[facility] ([id number])5200 [facility] [place] [address] eGFR (CKD-EPI) NON-RACE DEPENDENT >90 Normal >59 [facility] Comment on above: Result Comment: Repo rted eGFR is based on theCKD-EPI 2020 equation that doesnot use a race coefficient. Performed By: #### C BCA, CMP ####[facility] ([id number])5200 [place] [address] Glucose [Mass/Vol] 101 mg/dL High 65-99 [facility] Comment on above: Performed By: #### C BCA, CMP ####[facility] ([id number])5200 [facility] [place] [address] Potassium [Moles/Vol] 3.5 mmol/L Normal 3.5-5.0 [facility] Comment on above: Performed By: #### C BCA, CMP ####[facility] ([id number])5200 [facility] [place] [address] Protein [Mass/Vol] 5.1 g/dL Low 6.0-8.0 [facility] Comment on above: Performed By: #### C BCA, CMP ####[facility] ([id number])5200 [facility] [place] [address] Sodium [Moles/Vol] 140 mmol/L Normal 134-146 [facility] Comment on above: Performed By: #### C BCA, CMP ####[facility] ([id number])5200 [place] [address] Urea nitrogen [Mass/Vol] 16 mg/dL Normal 5-23 [facility] Comment on above: Performed By: #### C BCA, CMP ####[facility] ([id number])5200 [facility] [place] [address] 36on 06-13-2024 36 Patient called to cancel appointment this am with Dr. Moody, reports she is currently inpatient at [facility] and will need to reschedule at another time. I called infectious disease clinic and let them know of cancellation. Normal [facility] ANAEROBE CULTUREon 5 Bacteria identified Anaer cx Nom (Unsp spec) CULTURE RESULTS NO GROWTH 5 DAYS Normal [facility] Comment on above: Performed By: #### 6 35-3 ####[facility] ([id number])2130 [facility], [address] [address] Amikacin trough [Mass/Vol]on 04-14-2025 Amikacin, Trough, S <0.8 Normal <8.0 [facility] Comment on above: Result Comment: NOTE Test Performed by:[place] [id number] Director: Colten Sosa Ph.D.; CLIA# [id number] Performed By: #### 3 321-7 ####[facility] ([id number])5200 [facility] [place] [address] CBC AND AUTO DIFFon 06-14-19 25 ABSOLUTE BASOPHIL 0.0 X10E9/L Normal 0.0-0.2 [facility] Comment on above: Performed By: #### C MP, CBCA ####[facility] ([id number])5200 [facility] [place] [address] ABSOLUTE NEUTROPHIL 4.1 X10E9/L Normal 1.5-6.6 [facility] Comment on above: Performed By: #### C MP, CBCA ####[facility] ([id number])5200 [place] [address] Basophils/100 WBC (Bld) 0.8 % Normal [facility] Comment on above: Performed By: #### C MP, CBCA ####[facility] ([id number])5200 [facility] [place] [address] Eosinophils (Bld) [#/Vol] 0.5 10*3/uL High 0.0-0.4 [facility] Comment on above: Performed By: #### C MP, CBCA ####[facility] ([id number])5200 [place] [address] Eosinophils/100 WBC (Bld) 8.0 % Normal [facility] Comment on above: Performed By: #### C MP, CBCA ####[facility] ([id number])5200 [facility] [place] [address] Erythrocyte distribution width (RBC) [Ratio] 19.1 % High 11.5-15.0 [facility] Comment on above: Performed By: #### C MP, CBCA ####[facility] ([id number])5200 [place] [address] Hematocrit (Bld) [Volume fraction] 28.5 % Low 35-47 [facility] Comment on above: Performed By: #### C MP, CBCA ####[facility] ([id number])5200 [place] [address] Hemoglobin (Bld) [Mass/Vol] 9.6 g/dL Low 11.7-15.5 [facility] Comment on above: Performed By: #### C MP, CBCA ####[facility] ([id number])5200 [place] [address] Lymphocytes (Bld) [#/Vol] 0.9 10*3/uL Low 1.0-3.5 [facility] Comment on above: Performed By: #### C MP, CBCA ####[facility] ([id number])5200 [place] [address] Lymphocytes/100 WBC (Bld) 14.2 % Normal [facility] Comment on above: Performed By: #### C MP, CBCA ####[facility] ([id number])5200 [place] [address] MCH (RBC) [Entitic mass] 31.0 pg Normal 27-34 [facility] Comment on above: Performed By: #### C MP, CBCA ####[facility] ([id number])5200 [place] [address] MCHC (RBC) [Mass/Vol] 33.8 g/dL Normal 32-36 [facility] Comment on above: Performed By: #### C MP, CBCA ####[facility] ([id number])5200 [place] [address] MCV (RBC) [Entitic vol] 92 fL Normal 80-100 [facility] Comment on above: Performed By: #### C MP, CBCA ####[facility] ([id number])5200 [facility] [place] [address] Monocytes (Bld) [#/Vol] 0.6 10*3/uL Normal 0-0.9 [facility] Comment on above: Performed By: #### C MP, CBCA ####[facility] ([id number])5200 [facility] [place] [address] Monocytes/100 WBC (Bld) 9.7 % Normal [facility] Comment on above: Performed By: #### C MP, CBCA ####[facility] ([id number])5200 [place] [address] Neutrophils/100 WBC (Bld) 67.3 % Normal [facility] Comment on above: Performed By: #### C MP, CBCA ####[facility] ([id number])5[address] [place] [address] Platelet mean volume (Bld) [Entitic vol] 7.1 fL Normal 7-12 [facility] Comment on above: Performed By: #### C MP, CBCA ####[facility] ([id number])5[address] [place] [address] Platelets (Bld) [#/Vol] 250 10*3/uL Normal 150-450 [facility] Comment on above: Performed By: #### C MP, CBCA ####[facility] ([id number])5[address] [place] [address] RBC COUNT 3.10 X10E12/L Low 3.80-5.20 [facility] Comment on above: Performed By: #### C MP, CBCA ####[facility] ([id number])5200 [facility] [place] [address] WBC (Bld) [#/Vol] 6.1 10*3/uL Normal 4.0-11.0 [facility] Comment on above: Performed By: #### C MP, CBCA ####[facility] ([id number])5[address] [place] [address] COMPREHENSIVE METABOLIC PANE [place] 04-14-2025 Albumin [Mass/Vol] 3.5 g/dL Normal 3.2-5.3 [facility] Comment on above: Performed By: #### C MP, CBCA ####[facility] ([id number])[address] [place] [address] ALP [Catalytic activity/Vol] 76 U/L Normal 39-130 [facility] Comment on above: Performed By: #### C MP, CBCA ####[facility] ([id number])[address] [place] [address] ALT [Catalytic activity/Vol] 14 U/L Normal 0-31 [facility] Comment on above: Performed By: #### C MP, CBCA ####[facility] ([id number])[address] [place] [address] Anion gap [Moles/Vol] 4 mmol/L Low 5-15 [facility] Comment on above: Performed By: #### C MP, CBCA ####[facility] ([id number])[address] [place] [address] AST [Catalytic activity/Vol] 16 U/L Normal 0-41 [facility] Comment on above: Performed By: #### C MP, CBCA ####[facility] ([id number])[address] [place] [address] Bilirubin [Mass/Vol] 0.5 mg/dL Normal 0.3-1.2 [facility] Comment on above: Performed By: #### C MP, CBCA ####[facility] ([id number])[address] [place] [address] Calcium [Mass/Vol] 9.1 mg/dL Normal 8.5-10.5 [facility] Comment on above: Performed By: #### C MP, CBCA ####[facility] ([id number])[address] [place] [address] Chloride [Moles/Vol] 107 mmol/L Normal 98-109 [facility] Comment on above: Performed By: #### C MP, CBCA ####[facility] ([id number])5200 [facility] [place] [address] CO2 [Moles/Vol] 27 mmol/L Normal 22-32 [facility] Comment on above: Performed By: #### C MP, CBCA ####[facility] ([id number])5200 [facility] [place] [address] Creatinine [Mass/Vol] 0.66 mg/dL Normal 0.40-1.00 [facility] Comment on above: Result Comment: METH OD TRACEABLE TO IDMS STANDARD Performed By: #### C ADARSH, CBCA ####[facility] ([id number])5[address] [place] [address] eGFR (CKD-EPI) NON-RACE DEPENDENT >90 Normal >59 [facility] Comment on above: Result Comment: Repo rted eGFR is based on theCKD-EPI 2020 equation that doesnot use a race coefficient. Performed By: #### C ADARSH, CBCA ####[facility] ([id number])[address] [place] [address] Glucose [Mass/Vol] 92 mg/dL Normal 65-99 [facility] Comment on above: Performed By: #### C ADARSH, CBCA ####[facility] ([id number])5200 [facility] [place] [address] Potassium [Moles/Vol] 3.7 mmol/L Normal 3.5-5.0 [facility] Comment on above: Performed By: #### C ADARSH, CBCA ####[facility] ([id number])5200 [facility] [place] [address] Protein [Mass/Vol] 5.3 g/dL Low 6.0-8.0 [facility] Comment on above: Performed By: #### C MP, CBCA ####[facility] ([id number])5200 [facility] [place] [address] Sodium [Moles/Vol] 138 mmol/L Normal 134-146 [facility] Comment on above: Performed By: #### C MP, CBCA ####[facility] ([id number])5200 [place] [address] Urea nitrogen [Mass/Vol] 16 mg/dL Normal 5-23 [facility] Comment on above: Performed By: #### C MP, CBCA ####[facility] ([id number])5200 [place] [address] FUNGAL CULTUREon 06-13-2024 Fungus identified Cx Nom (Unsp spec) FUNGAL SMEAR NO FUNGAL ELEMENTS SEEN ON DIRECT SMEAR CULTURE RESULTS [facility] ABSCESSUS GROUP DR. HERMAN LUI REQUESTS SUSCEPTIBILITY 06/29/24 SEE SEPARATE REPORT FOR SUSCEPTIBILITY 07/18/24 [facility] Comment on above: Performed By: #### 5 80-1 ####[facility] ([id number])2130 [facility], [address] [place] [address] SEND OUT TESTon 06-13-2024 SENT TO [facility] RESEARCH [facility] Comment on above: Result Comment: [phone] SPECIMEN LJ SLANT FROM LEFT BREAST TISSUE [facility] TEST NAME: [facility] APPR O SUSCEPTIBILITY AND GENE RESISTANCE GENE TESTING [facility] TEST RESULT See separate report. View in OnBase or in EPIC. Normal [facility] TISSUE CULTUREon 06-13-2024 Bacteria identified Aer cx Nom (Tiss) GRAM STAIN 1 to 9 WHITE BLOOD CELLS/LPF 0 SQUAMOUS EPITHELIAL CELLS/LPF NO ORGANISMS SEEN CULTURE RESULTS NO GROWTH 3 DAYS Normal [facility] Comment on above: Performed By: #### 6 27-0 ####[facility] ([id number])2130 [facility] [address] [place] [address] CBC AND AUTO DIFFon 06-13-19 25 ABSOLUTE BASOPHIL 0.1 X10E9/L Normal 0.0-0.2 [facility] Comment on above: Performed By: #### C BCA, CMP ####[facility] ([id number])5200 [place] [address] ABSOLUTE NEUTROPHIL 4.4 X10E9/L Normal 1.5-6.6 [facility] Comment on above: Performed By: #### C BCA, CMP ####[facility] ([id number])5200 [facility] [place] [address] Basophils/100 WBC (Bld) 1.0 % Normal [facility] Comment on above: Performed By: #### C BCA, CMP ####[facility] ([id number])5200 [place] [address] Eosinophils (Bld) [#/Vol] 0.5 10*3/uL High 0.0-0.4 [facility] Comment on above: Performed By: #### C BCA, CMP ####[facility] ([id number])5[address] [place] [address] Eosinophils/100 WBC (Bld) 7.5 % Normal [facility] Comment on above: Performed By: #### C BCA, CMP ####[facility] ([id number])5[address] [place] [address] Erythrocyte distribution width (RBC) [Ratio] 19.9 % High 11.5-15.0 [facility] Comment on above: Performed By: #### C BCA, CMP ####[facility] ([id number])5[address] [place] [address] Hematocrit (Bld) [Volume fraction] 28.7 % Low 35-47 [facility] Comment on above: Performed By: #### C BCA, CMP ####[facility] ([id number])[address] [place] [address] Hemoglobin (Bld) [Mass/Vol] 9.7 g/dL Low 11.7-15.5 [facility] Comment on above: Performed By: #### C BCA, CMP ####[facility] ([id number])[address] [place] [address] Lymphocytes (Bld) [#/Vol] 0.9 10*3/uL Low 1.0-3.5 [facility] Comment on above: Performed By: #### C BCA, CMP ####[facility] ([id number])[address] [place] [address] Lymphocytes/100 WBC (Bld) 13.7 % Normal [facility] Comment on above: Performed By: #### C BCA, CMP ####[facility] ([id number])5200 [facility] [place] [address] MCH (RBC) [Entitic mass] 30.8 pg Normal 27-34 [facility] Comment on above: Performed By: #### C BCA, CMP ####[facility] ([id number])5200 [facility] [place] [address] MCHC (RBC) [Mass/Vol] 33.8 g/dL Normal 32-36 [facility] Comment on above: Performed By: #### C BCA, CMP ####[facility] ([id number])5200 [facility] [place] [address] MCV (RBC) [Entitic vol] 91 fL Normal 80-100 [facility] Comment on above: Performed By: #### C BCA, CMP ####[facility] ([id number])5200 [facility] [place] [address] Monocytes (Bld) [#/Vol] 0.7 10*3/uL Normal 0-0.9 [facility] Comment on above: Performed By: #### C BCA, CMP ####[facility] ([id number])5200 [facility] [place] [address] Monocytes/100 WBC (Bld) 10.4 % Normal [facility] Comment on above: Performed By: #### C BCA, CMP ####[facility] ([id number])5200 [facility] [place] [address] Neutrophils/100 WBC (Bld) 67.4 % Normal [facility] Comment on above: Performed By: #### C BCA, CMP ####[facility] ([id number])5200 [facility] [place] [address] Platelet mean volume (Bld) [Entitic vol] 7.0 fL Normal 7-12 [facility] Comment on above: Performed By: #### C BCA, CMP ####[facility] ([id number])5200 [place] [address] Platelets (Bld) [#/Vol] 260 10*3/uL Normal 150-450 [facility] Comment on above: Performed By: #### C BCA, CMP ####[facility] ([id number])5200 [place] [address] RBC COUNT 3.16 X10E12/L Low 3.80-5.20 [facility] Comment on above: Performed By: #### C BCA, CMP ####[facility] ([id number])5200 [place] [address] WBC (Bld) [#/Vol] 6.5 10*3/uL Normal 4.0-11.0 [facility] Comment on above: Performed By: #### C BCA, CMP ####[facility] ([id number])5200 [place] [address] COMPREHENSIVE METABOLIC PANE [place] 06-12-2024 Albumin [Mass/Vol] 3.6 g/dL Normal 3.2-5.3 [facility] Comment on above: Performed By: #### C BCA, CMP ####[facility] ([id number])5200 [place] [address] ALP [Catalytic activity/Vol] 80 U/L Normal 39-130 [facility] Comment on above: Performed By: #### C BCA, CMP ####[facility] ([id number])5200 [place] [address] ALT [Catalytic activity/Vol] 15 U/L Normal 0-31 [facility] Comment on above: Performed By: #### C BCA, CMP ####[facility] ([id number])5[address] [place] [address] Anion gap [Moles/Vol] 6 mmol/L Normal 5-15 [facility] Comment on above: Performed By: #### C BCA, CMP ####[facility] ([id number])5200 [facility] [place] [address] AST [Catalytic activity/Vol] 17 U/L Normal 0-41 [facility] Comment on above: Performed By: #### C BCA, CMP ####[facility] ([id number])5200 [facility] [place] [place] [address] Bilirubin [Mass/Vol] 0.5 mg/dL Normal 0.3-1.2 [facility] Comment on above: Performed By: #### C BCA, CMP ####[facility] ([id number])5200 [facility] [place] [address] Calcium [Mass/Vol] 8.8 mg/dL Normal 8.5-10.5 [facility] Comment on above: Performed By: #### C BCA, CMP ####[facility] ([id number])5200 [facility] [place] [address] Chloride [Moles/Vol] 107 mmol/L Normal 98-109 [facility] Comment on above: Performed By: #### C BCA, CMP ####[facility] ([id number])5200 [facility] [place] [address] CO2 [Moles/Vol] 27 mmol/L Normal 22-32 [facility] Comment on above: Performed By: #### C BCA, CMP ####[facility] ([id number])5200 [facility] [place] [address] Creatinine [Mass/Vol] 0.63 mg/dL Normal 0.40-1.00 [facility] Comment on above: Result Comment: METH OD TRACEABLE TO IDMS STANDARD Performed By: #### C BCA, CMP ####[facility] ([id number])5200 [facility] [place] [address] eGFR (CKD-EPI) NON-RACE DEPENDENT >90 Normal >59 [facility] Comment on above: Result Comment: Repo rted eGFR is based on theD-EPI 2020 equation that doesnot use a race coefficient. Performed By: #### C BCA, CMP ####[facility] ([id number])5[address] [place] [address] Glucose [Mass/Vol] 90 mg/dL Normal 65-99 [facility] Comment on above: Performed By: #### C BCA, CMP ####[facility] ([id number])5200 [place] [address] Protein [Mass/Vol] 5.5 g/dL Low 6.0-8.0 [facility] Comment on above: Performed By: #### C BCA, CMP ####[facility] ([id number])5200 [place] [address] Sodium [Moles/Vol] 140 mmol/L Normal 134-146 [facility] Comment on above: Performed By: #### C BCA, CMP ####[facility] ([id number])5200 [facility] [place] [address] Urea nitrogen [Mass/Vol] 13 mg/dL Normal 5-23 [facility] Comment on above: Performed By: #### C BCA, CMP ####[facility] ([id number])5200 [place] [address] MAGNESIUMon 06-12-2024 Magnesium [Mass/Vol] 2.0 mg/dL Normal 1.8-2.6 [facility] Comment on above: Performed By: #### 1 9123-9 ####[facility] ([id number])5200 [place] [address] POTASSIUMon 06-12-2024 Potassium [Moles/Vol] 3.8 mmol/L Normal 3.5-5.0 [facility] Comment on above: Performed By: #### 2 823-3 ####[facility] ([id number])5200 [facility] [place] [address] Potassium [Moles/Vol] 3.2 mmol/L Low 3.5-5.0 [facility] Comment on above: Performed By: #### 2 823-3 ####[facility] ([id number])5200 [place] [address] Performed By: #### C BCA, CMP ####[facility] ([id number])5[address] [place] [address] BLOOD CULTUREon 06-11-2024 Bacteria identified Aer cx Nom (Bld) CULTURE RESULTS NO GROWTH 5 DAYS Normal [facility] Bacteria identified Aer cx Nom (Bld) CULTURE RESULTS NO GROWTH 5 DAYS Normal [facility] CBC AND AUTO DIFFon 06-12-19 25 ABSOLUTE BASOPHIL 0.1 X10E9/L Normal 0.0-0.2 [facility] Comment on above: Performed By: #### C MP, CBCA, ####[facility] ([id number])5200 [place] [address] ABSOLUTE NEUTROPHIL 4.7 X10E9/L Normal 1.5-6.6 [facility] Comment on above: Performed By: #### C MP, CBCA, ####[facility] ([id number])5200 [place] [address] Basophils/100 WBC (Bld) 1.2 % Normal [facility] Comment on above: Performed By: #### C MP, CBCA, ####[facility] ([id number])5[address] [place] [address] Eosinophils (Bld) [#/Vol] 0.5 10*3/uL High 0.0-0.4 [facility] Comment on above: Performed By: #### C MP, CBCA, ####[facility] ([id number])5200 [place] [address] Eosinophils/100 WBC (Bld) 6.9 % Normal [facility] Comment on above: Performed By: #### C MP, CBCA, ####[facility] ([id number])5200 [facility] [place] [address] Erythrocyte distribution width (RBC) [Ratio] 20.1 % High 11.5-15.0 [facility] Comment on above: Performed By: #### C MP, CBCA, ####[facility] ([id number])5200 [facility] [place] [address] Hematocrit (Bld) [Volume fraction] 29.2 % Low 35-47 [facility] Comment on above: Performed By: #### C MP, CBCA, ####[facility] ([id number])5200 [facility] [place] [address] Hemoglobin (Bld) [Mass/Vol] 9.9 g/dL Low 11.7-15.5 [facility] Comment on above: Performed By: #### C ADARSH, CBCA, ####[facility] ([id number])5200 [facility] [place] [address] Lymphocytes (Bld) [#/Vol] 1.1 10*3/uL Normal 1.0-3.5 [facility] Comment on above: Performed By: #### C ADARSH, CBCA, ####[facility] ([id number])5200 [facility] [place] [address] Lymphocytes/100 WBC (Bld) 15.8 % Normal [facility] Comment on above: Performed By: #### C MP, CBCA, ####[facility] ([id number])5200 [facility] [place] [address] MCH (RBC) [Entitic mass] 30.8 pg Normal 27-34 [facility] Comment on above: Performed By: #### C MP, CBCA, ####[facility] ([id number])5200 [facility] [place] [address] MCHC (RBC) [Mass/Vol] 33.9 g/dL Normal 32-36 [facility] Comment on above: Performed By: #### C MP, CBCA, ####[facility] ([id number])5200 [place] [address] MCV (RBC) [Entitic vol] 91 fL Normal 80-100 [facility] Comment on above: Performed By: #### C MP, CBCA, ####[facility] ([id number])5[address] [place] [address] Monocytes (Bld) [#/Vol] 0.6 10*3/uL Normal 0-0.9 [facility] Comment on above: Performed By: #### C MP, CBCA, ####[facility] ([id number])[address] [place] [address] Monocytes/100 WBC (Bld) 8.8 % Normal [facility] Comment on above: Performed By: #### C MP, CBCA, ####[facility] ([id number])[address] [place] [address] Neutrophils/100 WBC (Bld) 67.3 % Normal [facility] Comment on above: Performed By: #### C MP, CBCA, ####[facility] ([id number])[address] [place] [address] Platelet mean volume (Bld) [Entitic vol] 7.3 fL Normal 7-12 [facility] Comment on above: Performed By: #### C MP, CBCA, ####[facility] ([id number])[address] [place] [address] Platelets (Bld) [#/Vol] 268 10*3/uL Normal 150-450 [facility] Comment on above: Performed By: #### C MP, CBCA, ####[facility] ([id number])[address] [place] [address] RBC COUNT 3.21 X10E12/L Low 3.80-5.20 [facility] Comment on above: Performed By: #### C MP, CBCA, 10614-2 ####[facility] ([id number])5200 [facility] [place] [address] WBC (Bld) [#/Vol] 6.9 10*3/uL Normal 4.0-11.0 [facility] Comment on above: Performed By: #### C MP, CBCA, 99353-7 ####[facility] ([id number])5[address] [place] [address] ABSOLUTE BASOPHIL 0.1 X10E9/L Normal 0.0-0.2 [facility] Comment on above: Performed By: #### C BCA, CMP ####[facility] ([id number])5[address] [place] [address] ABSOLUTE NEUTROPHIL 5.7 X10E9/L Normal 1.5-6.6 [facility] Comment on above: Performed By: #### C BCA, CMP ####[facility] ([id number])5[address] [place] [address] Basophils/100 WBC (Bld) 0.9 % Normal [facility] Comment on above: Performed By: #### C BCA, CMP ####[facility] ([id number])5[address] [place] [address] Eosinophils (Bld) [#/Vol] 0.5 10*3/uL High 0.0-0.4 [facility] Comment on above: Performed By: #### C BCA, CMP ####[facility] ([id number])5[address] [place] [address] Eosinophils/100 WBC (Bld) 6.2 % Normal [facility] Comment on above: Performed By: #### C BCA, CMP ####[facility] ([id number])[address] [place] [address] Erythrocyte distribution width (RBC) [Ratio] 20.0 % High 11.5-15.0 [facility] Comment on above: Performed By: #### C BCA, CMP ####[facility] ([id number])5200 [facility] [place] [address] Hematocrit (Bld) [Volume fraction] 30.0 % Low 35-47 [facility] Comment on above: Performed By: #### C BCA, CMP ####[facility] ([id number])[address] [place] [address] Hemoglobin (Bld) [Mass/Vol] 10.1 g/dL Low 11.7-15.5 [facility] Comment on above: Performed By: #### C BCA, CMP ####[facility] ([id number])5[address] [place] [address] Lymphocytes (Bld) [#/Vol] 1.2 10*3/uL Normal 1.0-3.5 [facility] Comment on above: Performed By: #### C BCA, CMP ####[facility] ([id number])[address] [place] [address] Lymphocytes/100 WBC (Bld) 14.9 % Normal [facility] Comment on above: Performed By: #### C BCA, CMP ####[facility] ([id number])[address] [place] [address] MCH (RBC) [Entitic mass] 30.7 pg Normal 27-34 [facility] Comment on above: Performed By: #### C BCA, CMP ####[facility] ([id number])[address] [place] [address] MCHC (RBC) [Mass/Vol] 33.7 g/dL Normal 32-36 [facility] Comment on above: Performed By: #### C BCA, CMP ####[facility] ([id number])5200 [facility] [place] [address] MCV (RBC) [Entitic vol] 91 fL Normal 80-100 [facility] Comment on above: Performed By: #### C BCA, CMP ####[facility] ([id number])5200 [facility] [place] [address] Monocytes (Bld) [#/Vol] 0.7 10*3/uL Normal 0-0.9 [facility] Comment on above: Performed By: #### C BCA, CMP ####[facility] ([id number])5200 [facility] [place] [address] Monocytes/100 WBC (Bld) 8.3 % Normal [facility] Comment on above: Performed By: #### C BCA, CMP ####[facility] ([id number])[address] [place] [address] Neutrophils/100 WBC (Bld) 69.7 % Normal [facility] Comment on above: Performed By: #### C BCA, CMP ####[facility] ([id number])5200 [facility] [place] [address] Platelet mean volume (Bld) [Entitic vol] 7.1 fL Normal 7-12 [facility] Comment on above: Performed By: #### C BCA, CMP ####[facility] ([id number])5200 [facility] [place] [address] Platelets (Bld) [#/Vol] 264 10*3/uL Normal 150-450 [facility] Comment on above: Performed By: #### C BCA, CMP ####[facility] ([id number])5200 [facility] [place] [address] RBC COUNT 3.30 X10E12/L Low 3.80-5.20 [facility] Comment on above: Performed By: #### C BCA, CMP ####[facility] ([id number])5200 [facility] [place] [address] WBC (Bld) [#/Vol] 8.2 10*3/uL Normal 4.0-11.0 [facility] Comment on above: Performed By: #### C BCA, CMP ####[facility] ([id number])[address] [place] [address] COMPREHENSIVE METABOLIC PANE [place] 06-11-2024 Albumin [Mass/Vol] 3.6 g/dL Normal 3.2-5.3 [facility] Comment on above: Performed By: #### C ADARSH CBCA, ####[facility] ([id number])[address] [place] [address] ALP [Catalytic activity/Vol] 84 U/L Normal 39-130 [facility] Comment on above: Performed By: #### C ADARSH CBCA, ####[facility] ([id number])5[address] [place] [address] ALT [Catalytic activity/Vol] 17 U/L Normal 0-31 [facility] Comment on above: Performed By: #### C ADARSH CBCA, ####[facility] ([id number])5[address] [place] [address] Anion gap [Moles/Vol] 7 mmol/L Normal 5-15 [facility] Comment on above: Performed By: #### C ADARSH CBCA, ####[facility] ([id number])5200 [place] [address] AST [Catalytic activity/Vol] 20 U/L Normal 0-41 [facility] Comment on above: Performed By: #### C ADARSH CBCA, ####[facility] ([id number])[address] [place] [address] Bilirubin [Mass/Vol] 0.5 mg/dL Normal 0.3-1.2 [facility] Comment on above: Performed By: #### C ADARSH CBCA, ####[facility] ([id number])[address] [place] [address] Calcium [Mass/Vol] 9.1 mg/dL Normal 8.5-10.5 [facility] Comment on above: Performed By: #### C ADARSH CBCA, ####[facility] ([id number])[address] [place] [address] Chloride [Moles/Vol] 107 mmol/L Normal 98-109 [facility] Comment on above: Performed By: #### C OFE ALTAMIRANO, ####[facility] ([id number])[address] [place] [address] CO2 [Moles/Vol] 26 mmol/L Normal 22-32 [facility] Comment on above: Performed By: #### C OFE ALTAMIRANO, ####[facility] ([id number])5200 [facility] [place] [address] Creatinine [Mass/Vol] 0.67 mg/dL Normal 0.40-1.00 [facility] Comment on above: Result Comment: METH OD TRACEABLE TO IDMS STANDARD Performed By: #### C OFE ALTAMIRANO, ####[facility] ([id number])5200 [facility] [place] [address] eGFR (CKD-EPI) NON-RACE DEPENDENT >90 Normal >59 [facility] Comment on above: Result Comment: Repo rted eGFR is based on theCKD-EPI 2020 equation that doesnot use a race coefficient. Performed By: #### C OFE ALTAMIRANO, ####[facility] ([id number])5[address] [place] [address] Glucose [Mass/Vol] 82 mg/dL Normal 65-99 [facility] Comment on above: Performed By: #### C OFE ALTAMIRANO, ####[facility] ([id number])[address] [place] [address] Potassium [Moles/Vol] 3.5 mmol/L Normal 3.5-5.0 [facility] Comment on above: Performed By: #### C OFE ALTAMIRANO, ####[facility] ([id number])5200 [facility] [place] [address] Protein [Mass/Vol] 5.7 g/dL Low 6.0-8.0 [facility] Comment on above: Performed By: #### C MP, CBCA, 24723-2 ####[facility] ([id number])[address] [place] [address] Sodium [Moles/Vol] 140 mmol/L Normal 134-146 [facility] Comment on above: Performed By: #### C MP, CBCA, ####[facility] ([id number])[address] [place] [address] Urea nitrogen [Mass/Vol] 11 mg/dL Normal 5-23 [facility] Comment on above: Performed By: #### C MP, CBCA, ####[facility] ([id number])[address] [place] [address] Albumin [Mass/Vol] 3.8 g/dL Normal 3.2-5.3 [facility] Comment on above: Performed By: #### C BCA, CMP ####[facility] ([id number])[address] [place] [address] ALP [Catalytic activity/Vol] 87 U/L Normal 39-130 [facility] Comment on above: Performed By: #### C BCA, CMP ####[facility] ([id number])[address] [place] [address] ALT [Catalytic activity/Vol] 18 U/L Normal 0-31 [facility] Comment on above: Performed By: #### C BCA, CMP ####[facility] ([id number])[address] [place] [address] Anion gap [Moles/Vol] 6 mmol/L Normal 5-15 [facility] Comment on above: Performed By: #### C BCA, CMP ####[facility] ([id number])[address] [place] [address] AST [Catalytic activity/Vol] 21 U/L Normal 0-41 [facility] Comment on above: Performed By: #### C BCA, CMP ####[facility] ([id number])[address] [place] [address] Bilirubin [Mass/Vol] 0.4 mg/dL Normal 0.3-1.2 [facility] Comment on above: Performed By: #### C BCA, CMP ####[facility] ([id number])5200 [facility] [place] [address] Calcium [Mass/Vol] 9.4 mg/dL Normal 8.5-10.5 [facility] Comment on above: Performed By: #### C BCA, CMP ####[facility] ([id number])5200 [place] [address] Chloride [Moles/Vol] 106 mmol/L Normal 98-109 [facility] Comment on above: Performed By: #### C BCA, CMP ####[facility] ([id number])5200 [place] [address] CO2 [Moles/Vol] 28 mmol/L Normal 22-32 [facility] Comment on above: Performed By: #### C BCA, CMP ####[facility] ([id number])5200 [place] [address] Creatinine [Mass/Vol] 0.72 mg/dL Normal 0.40-1.00 [facility] Comment on above: Result Comment: METH OD TRACEABLE TO IDMS STANDARD Performed By: #### C BCA, CMP ####[facility] ([id number])5200 [place] [address] eGFR (CKD-EPI) NON-RACE DEPENDENT >90 Normal >59 [facility] Comment on above: Result Comment: Repo rted eGFR is based on theCKD-EPI 2020 equation that doesnot use a race coefficient. Performed By: #### C BCA, CMP ####[facility] ([id number])5200 [place] [address] Glucose [Mass/Vol] 97 mg/dL Normal 65-99 [facility] Comment on above: Performed By: #### C BCA, CMP ####[facility] ([id number])5200 [place] [address] Potassium [Moles/Vol] 3.3 mmol/L Low 3.5-5.0 [facility] Comment on above: Performed By: #### C BCA, CMP ####[facility] ([id number])5200 [place] [address] Protein [Mass/Vol] 6.0 g/dL Normal 6.0-8.0 [facility] Comment on above: Performed By: #### C BCA, CMP ####[facility] ([id number])5200 [place] [address] Sodium [Moles/Vol] 140 mmol/L Normal 134-146 [facility] Comment on above: Performed By: #### C BCA, CMP ####[facility] ([id number])5200 [place] [address] Urea nitrogen [Mass/Vol] 14 mg/dL Normal 5-23 [facility] Comment on above: Performed By: #### C BCA, CMP ####[facility] ([id number])5200 [place] [address] MAGNESIUMon 06-11-2024 Magnesium [Mass/Vol] 1.6 mg/dL Low 1.8-2.6 [facility] Comment on above: Performed By: #### C MP, CBCA, 38800-7 ####[facility] ([id number])5200 [place] [address] SUPERFICIAL WOUND CULTUREon 06-11-2024 Bacteria identified Aer cx Nom (Wound) GRAM STAIN 1 to 9 WHITE BLOOD CELLS/LPF 0 to 1 SQUAMOUS EPITHELIAL CELLS/LPF NO ORGANISMS SEEN CULTURE RESULTS RARE NORMAL SKIN EMILIE Normal [facility] Comment on above: Performed By: #### 6 32-0 ####[facility] ([id number])2130 [facility], [address], [place] [address] 36on 06-08-2024 36 Pt is wondering if s he still needs weekly Amikacin levels as well as there is concern for a spot above wound that is red and hot to the touch there is a white pimple looking bump. Pt reports picture in Dwellable for you to review. Normal [facility] 36on 06-07-2024 36 RN called to request most recent labs be faxed to [facility] ID. Fax number confirmed Normal [facility] Glucose Glucometer (BldC) [M ass/Vol]Ordered By: Aarti Hope on 06-03-2024 Glucose [Mass/Vol] Capillary blood glucose measurement by glucometer (mass/volume) [facility] Comment on above: Random Glucose Refer ence Range is dependent on time and content of last meal. Glucose of more than 200 mg/dL in a nonstressed, ambulatory subject supports the diagnosis of Diabetes Mellitus. Glucose Poct Glucometerson 0 06-03-2024 Glucose [Mass/Vol] 98 mg/dL Normal [facility] Comment on above: Result Comment: [place] om Glucose Reference Range is dependent on time and content of last meal. Glucose of more than 200 mg/dL in a nonstressed, ambulatory subject supports the diagnosis of Diabetes Mellitus. PERFORMED BY: [facility] [address] [place] [address] PATHOLOGIST [employer] SECURITY MARIA A WINTER M.D. Performed By: #### G SETH #### Point of Care testing , IGP,APTIMA HPV,AGE GDLNon AGE GDLN ACOG TESTING Note . [facility] Comment on above: TESTS RESULT FLAG UN ITS REF RANGE LAB Clinician Provided Cytology Information Source.............Vagina No. of containers..01 ThinPrep Vial Age Algo ACOG Christie... 30 FLAG LEGEND: L-Low Normal,H-High Normal,LL-Alert Low,HH-Alert High <-Panic Low,>-Panic High,A-Abnormal,AA-Critical Abnormal Performed at: 01 = [address] [address] Apolonia Mayorga MD, HPV APTIMA Negative Negative [facility] Comment on above: This nucleic acid am plification test detects fourteen high- risk HPV types (16,18,31,33,35,39,45,51,52,56,58,59,66,68) without differentiation. Performed at: = - [facility] [id number] Consultant: Apolonia Mayorga MD, Phone: [phone] Performed at: [facility] [address] [place] [id number] As400 Consultant: Acosta Box MD, Phone: [phone] IGP, APTIMA HPV, RFX 16/18,45 Note . [facility] Comment on above: TESTS RESULT FLAG UN ITS REF RANGE LAB DIAGNOSIS: 02 NEGATIVE FOR INTRAEPITHELIAL LESION OR MALIGNANCY. Specimen adequacy: 02 Satisfactory for evaluation. Performed by: Karina Goodwin, Finisher Card Tender ([facility]) . 02 Note: Note 03 The Pap [...] High,A-Abnormal,AA-Critical Abnormal Performed at: 02 KWCYT [facility] [address] [place] [address] Acosta Box MD, 03 WB [facility] [address] [address] Apolonia Mayorga MD, SPATULA-ALONE VAGINA [facility] PET tumor subq tx strat sb-m [facility] 06-03-2024 PET tumor subq tx strat sb-mt [facility] [place] [address] Nuclear Medicine Report Signed Patient: Ike Flannery MR#: [id number] : 1970 Acct:[id number] Age/Sex: 53 / F ADM Date: 06/03/24 Loc: Room: Type: [facility] [address] Attending Dr: Aarti Hope MD Copies to: [...] Fortino Tate M.D.06/03/2024 12:40 PM Dictation Location: [place] [address] Transcribed By: [facility] 06/03/24 1240 Dictated By: Fortino Tate MD 06/03/24 1216 Signed By: 06/03/24 1240 Normal [facility] Documentationon 06-01-2024 Documentation [id number] Ike Flannery 1970 F Date Provider Department Center 06/01/2024 [id number] TOBAR [facility] INF Anthony Heal Family History Adopted: Yes Problem Relation Age of Onset Heart attack Father Family Status - Relation Status Age at Father Normal [facility] Orders Onlyon 06-01-2024 Orders Only [id number] Theresa Flanneryzakaren Eason 1970 F Date Provider Department Center 06/01/2024 258-ALICE MOODYAN [facility] CARE Anthony Heal Family History Adopted: Yes Problem Relation Age of Onset Heart attack Father Family Status - Relation Status Age at Father Normal [facility] Urinalysis macro (dipstick) panel (U)on 06-01-2024 Bilirubin, UA Negative Negative - 4(70) +++ mg/dL [facility] Blood, UA Negative Negative - 50 Jerod/mcL [facility] Clarity, UA Clear [facility] Color, UA Yellow [facility] Glucose, UA Negative Negative - 1999(110) ++++ mg/dL [facility] Interpretation and review of laboratory results Abnormal [facility] Ketones, UA Positive Negative - 160(16) ++++ mg/dL [facility] Comment on above: trace Leukocytes, UA Negative Negative - 500+++ Sofya/mcL [facility] Nitrite, UA Negative Negative - Positive [facility] pH, UA 6.5 5 - 9 [facility] Protein, UA Negative Negative - 1999(20) ++++ mg/dL [facility] Spec Grav, UA 1.015 1 - 1.03 [facility] care Urobilinogen, UA 0.2 0.2 - 12 mg/dL [facility] Office Visiton 05-31-2024 Follow-up visit [id number] Ike Flannery 1970 F Date Provider Department Center 05/31/2024 [id number] ATWOOD [facility] ALGY Anthony Heal Family History Adopted: Yes Problem Relation Age of Onset Heart attack Father Family Status - Relation Status Age at Father Level of Service:14178 DC OFFICE/OUTPATIENT NEW MODERATE MDM 45 MINUTES Reason for Visit and Comments: New Patient [632] - Tetracycline therapy Doxy testing Normal [facility] Orders Onlyon 05-30-2024 Orders Only [id number] Ike Flannery 1970 F Date Provider Department Center 05/30/2024 [id number], HISTORICAL [facility] RHEUM Anthony Heal Family History Adopted: Yes Problem Relation Age of Onset Heart attack Father Family Status - Relation Status Age at Father Normal [facility] 30on 05-27-2024 30 The patient is Moderately [...] facility with appropriate resources Add Today at 101 - Progressing by Ravinder Escobar RN Add [...] and maintained or improved Add Today at 010 - Progressing by Ravinder Escobar RN Add Flowsheets Taken today at 0102 Care Plan - Patient's Chronic Conditions and Co-Morbidity Symptoms are Monitored and Maintained or Improved Monitor and assess patient's chronic conditions and comorbid symptoms for stability, deterioration, or improvement;Collaborat e with multidisciplinary team to address chronic and comorbid conditions and prevent exacerbation or deterioration Normal [facility] CBC WITH AUTO DIFFERENTIALon 05-27-2024 Erythrocyte distribution width (RBC) [Ratio] 19.1 % High 11.5-15.0 [facility] Comment on above: Performed By: #### L [id number] #### [facility] (BEAKER) [address] [place] [address] ERYTHROCYTE MEAN CORPUSCULAR HEMOGLOBIN CONCENTRATION (G/DL) BY AUTOMATED 32.9 g/dL Normal 32.0-35.0 [facility] Comment on above: Performed By: #### L [id number] #### [facility] (BEAKER) [address] [place] [address] Hematocrit (Bld) [Volume fraction] 22.5 % Low 36.0-45.0 [facility] Comment on above: Performed By: #### L [id number] #### [facility] ([facility]) [address] [place] [address] Hemoglobin (Bld) [Mass/Vol] 7.4 g/dL Low 12.0-15.0 [facility] Comment on above: Performed By: #### L [id number] #### [facility] ([facility]) [address] [place] [address] IMMATURE PLATELET FRACTION % 2.7 % Normal 0.8-6.3 [facility] Comment on above: Performed By: #### L [id number] #### [facility] ([facility]) [address] [place] [address] MCH (RBC) [Entitic mass] 29.7 pg Normal 27.0-33.0 [facility] Comment on above: Performed By: #### L [id number] #### [facility] ([facility]) [address] [place] [address] MCV (RBC) [Entitic vol] 90.4 fL Normal 82.0-98.0 [facility] Comment on above: Performed By: #### L [id number] #### [facility] ([facility]) [address] [place] [address] NRBC (PER 100 WBCS) BY AUTOMATED COUNT 0.0 % Normal 0 [facility] Comment on above: Performed By: #### L [id number] #### [facility] ([facility]) [address] [place] [address] PLATELETS (10*3/UL) IN BLOOD AUTOMATED COUNT 126 10*3/uL Low 150-400 [facility] Comment on above: Performed By: #### L [id number] #### [facility] ([facility]) [address] [place] [address] RBC (Bld) [#/Vol] 2.49 10*6/uL Low 3.80-5.00 [facility] Comment on above: Performed By: #### L [id number] #### [facility] [address] [place] [address] WBC (Bld) [#/Vol] 2.53 10*3/uL Low 4.00-10.60 [facility] Comment on above: Performed By: #### L [id number] #### [facility] ([facility]) [address] [place] [address] COMPREHENSIVE METABOLIC PANE [place] 05-27-2024 Albumin [Mass/Vol] 3.1 g/dL Low 3.5-5.7 [facility] Comment on above: Performed By: #### L [id number] #### [facility] ([facility]) [address] [place] [address] ALP [Catalytic activity/Vol] 125 U/L High 34-104 [facility] Comment on above: Performed By: #### L [id number] #### [facility] [address] [place] [address] ALT [Catalytic activity/Vol] 66 U/L High 7-52 [facility] Comment on above: Performed By: #### L [id number] #### [facility] [address] [place] [address] Anion gap [Moles/Vol] 6 mmol/L Low 7-20 [facility] Comment on above: Performed By: #### L [id number] #### [facility] [address] [place] [address] AST [Catalytic activity/Vol] 53 U/L High 13-39 [facility] Comment on above: Performed By: #### L [id number] #### [facility] [address] [place] [address] Bilirubin [Mass/Vol] 0.5 mg/dL Normal 0.3-1.0 [facility] Comment on above: Performed By: #### L [id number] #### [facility] [address] [place] [address] Calcium [Mass/Vol] 8.4 mg/dL Low 8.6-10.3 [facility] Comment on above: Performed By: #### L [id number] #### [facility] [address] [place] [address] Chloride [Moles/Vol] 110 mmol/L High 98-107 [facility] Comment on above: Performed By: #### L [id number] #### [facility] ([facility]) [address] [place] [address] CO2 [Moles/Vol] 30 mmol/L Normal 21-31 [facility] Comment on above: Performed By: #### L [id number] #### [facility] ([facility]) [address] [place] [address] Creatinine [Mass/Vol] 0.50 mg/dL Low 0.60-1.20 [facility] Comment on above: Performed By: #### L [id number] #### [facility] ([facility]) [address] [place] [address] GLOMERULAR FILTRATION RATE ML/MIN/1.73 SQ M.PREDICTED 112.1 mL/min/1.73m*2 Normal >60.0 [facility] Comment on above: Result Comment: [facility]???s estimated glomerular filtration rate (eGFR) will no [...] group of individuals. Performed By: #### L [id number] #### [facility] [address] [place] [address] Glucose [Mass/Vol] 83 mg/dL Normal 70-100 [facility] Comment on above: Performed By: #### L [id number] #### [facility] ([facility]) [address] [place] [address] Potassium [Moles/Vol] 3.3 mmol/L Low 3.5-5.1 [facility] Comment on above: Performed By: #### L [id number] #### [facility] ([facility]) [address] [place] [address] Protein [Mass/Vol] 5.2 g/dL Low 6.0-8.3 [facility] Comment on above: Performed By: #### L [id number] #### [facility] ([facility]) [address] [place] [address] Sodium [Moles/Vol] 143 mmol/L Normal 136-145 [facility] Comment on above: Performed By: #### L [id number] #### [facility] ([facility]) [address] [place] [address] Urea nitrogen [Mass/Vol] 5 mg/dL Low 7-25 [facility] Comment on above: Performed By: #### L [id number] #### [facility] ([facility]) [address] [place] [address] UREA NITROGEN/CREATININE (MASS RATIO) IN SER/PLAS 10.0 Normal [facility] Comment on above: Performed By: #### L [id number] #### [facility] ([facility]) [address] [place] [address] Documentationon 05-27-2024 Documentation [id number] Ike Flannery 1970 F Date Provider Department Center 05/27/2024 PK SANCHEZ [facility] Spe Pha Comprehensiv Family History Adopted: Yes Problem Relation Age of Onset Heart attack Father Family Status - Relation Status Age at Father Reason for Visit and Comments: Specialty Pharmacy note. Nuzyra [Other] Normal [facility] MANUAL DIFFERENTIALon 2024 BASOPHILS (10*3/UL) IN BLOOD BY CALCULATION 0.00 10*3/uL Normal 0.00-0.20 [facility] Comment on above: Performed By: #### L [id number] ####[facility] ([facility])[address] [place] [address] BASOPHILS/100 LEUKOCYTES IN BLOOD BY AUTOMATED COUNT 0.0 % Normal 0.0-1.0 [facility] Comment on above: Performed By: #### L [id number] ####[facility] ([facility])[address] [place] [address] EOSINOPHILS (10*3/UL) IN BLOOD BY CALCULATION 0.10 10*3/uL Normal 0.00-0.50 [facility] Comment on above: Performed By: #### L [id number] ####[facility] ([facility])[address] [place] [address] EOSINOPHILS/100 LEUKOCYTES IN BLOOD BY AUTOMATED COUNT 4.0 % Normal 0.0-6.0 [facility] Comment on above: Performed By: #### L [id number] ####[facility] ([facility])[address] [place] [address] IMMATURE GRANULOCYTES (10*3/UL) IN BLOOD BY CALCULATION 0.01 10*3/uL Normal 0.00-0.20 [facility] Comment on above: Performed By: #### L [id number] ####[facility] ([facility])[address] [place] [address] IMMATURE GRANULOCYTES/100 LEUKOCYTES IN BLOOD BY AUTOMATED COUNT 0.4 % Normal 0.0-1.0 [facility] Comment on above: Performed By: #### L [id number] ####[facility] ([facility] [place] [address] LYMPHOCYTES (10*3/UL) IN BLOOD BY CALCULATION 0.83 10*3/uL Low 1.20-4.00 [facility] Comment on above: Performed By: #### L [id number] ####[facility] (BEAKER)[address] [place] [address] LYMPHOCYTES/100 LEUKOCYTES IN BLOOD BY AUTOMATED COUNT 32.7 % Normal 20.0-45.0 [facility] Comment on above: Performed By: #### L [id number] ####[facility] ([facility])[address] [place] [address] MONOCYTES (10*3/UL) IN BLOOD BY CALCUATION 0.20 10*3/uL Normal 0.10-1.00 [facility] Comment on above: Performed By: #### L [id number] ####[facility] ([facility])[address] [place] [address] MONOCYTES/100 LEUKOCYTES IN BLOOD BY AUTOMATED COUNT 8.0 % Normal 5.0-12.0 [facility] Comment on above: Performed By: #### L [id number] ####[facility] ([facility])[address] [place] [address] NEUTROPHILS (10*3/UL) IN BLOOD BY CALCULATION 1.4 10*3/uL Low 1.6-7.6 [facility] Comment on above: Performed By: #### L [id number] ####[facility] ([facility])[address] [place] [address] NEUTROPHILS/100 LEUKOCYTES IN BLOOD BY AUTOMATED COUNT 55.3 % Normal 40.0-72.0 [facility] Comment on above: Performed By: #### L [id number] ####[facility] ([facility])[address] [place] [address] NUCLEATED RED BLOOD CELLS IN BLOOD BY LIGHT MICROSCOPY Present Normal [facility] Comment on above: Performed By: #### L [id number] ####[facility] ([facility])[address] [place] [address] PLASMA CELLS/100 LEUKOCYTES IN BLOOD 0 % Normal 0 [facility] Comment on above: Performed By: #### L [id number] ####[facility] ([facility])[address] [place] [address] PLATELETS GIANT PRESENCE IN BLOOD BY LIGHT MICROSCOPY Present Normal [facility] Comment on above: Performed By: #### L [id number] ####[facility] (BEAKER)[address] [place] [address] VARIANT LYMPHOCYTES (10*3/UL) IN BLOOD BY CALCULATION 0.00 10*3/uL Normal 0.00 [facility] Comment on above: Performed By: #### L [id number] ####[facility] ([facility])[address] [place] [address] VARIANT LYMPHOCYTES/100 LEUKOCYTES IN BLOOD CELLAVISION 0.0 % Normal 0.0-0.0 [facility] Comment on above: Performed By: #### L [id number] ####[facility] ([facility])[address] [place] [address] Orders Onlyon 05-27-2024 Orders Only [id number] Ike Flannery 1970 F Date Provider Department [place] 05/27/[id number] ATWOOD [facility] [place] Family History Adopted: Yes Problem Relation Age of Onset Heart attack Father Family Status - Relation Status Age at Father Normal [facility] 30on 05-26-2024 30 The patient is Moderately [...] follow up with wound care outpatient. Normal [facility] BASIC METABOLIC PANELon 05-01 Anion gap [Moles/Vol] 7 mmol/L Normal 7-20 [facility] Comment on above: Performed By: #### L [id number] #### [facility] [address] [place] [address] Calcium [Mass/Vol] 8.1 mg/dL Low 8.6-10.3 [facility] Comment on above: Performed By: #### L [id number] #### [facility] [address] [place] [address] Chloride [Moles/Vol] 110 mmol/L High 98-107 [facility] Comment on above: Performed By: #### L [id number] #### [facility] ([facility]) [address] [place] [address] CO2 [Moles/Vol] 28 mmol/L Normal 21-31 [facility] Comment on above: Performed By: #### L [id number] #### [facility] ([facility]) [address] [place] [address] Creatinine [Mass/Vol] 0.56 mg/dL Low 0.60-1.20 [facility] Comment on above: Performed By: #### L [id number] #### [facility] ([facility]) [address] [place] [address] GLOMERULAR FILTRATION RATE ML/MIN/1.73 SQ M.PREDICTED 109.1 mL/min/1.73m*2 Normal >60.0 [facility] Comment on above: Result Comment: The [facility]???s estimated glomerular filtration rate (eGFR) will no [...] group of individuals. Performed By: #### L [id number] #### [facility] ([facility]) [address] [place] [address] Glucose [Mass/Vol] 79 mg/dL Normal 70-100 [facility] Comment on above: Performed By: #### L [id number] #### [facility] ([facility]) [address] [place] [address] Potassium [Moles/Vol] 3.4 mmol/L Low 3.5-5.1 [facility] Comment on above: Performed By: #### L [id number] #### [facility] [address] [place] [address] Sodium [Moles/Vol] 142 mmol/L Normal 136-145 [facility] Comment on above: Performed By: #### L [id number] #### [facility] ([facility]) [address] [place] [address] Urea nitrogen [Mass/Vol] 7 mg/dL Normal 7-25 [facility] Comment on above: Performed By: #### L [id number] #### [facility] ([facility]) [address] [place] [address] UREA NITROGEN/CREATININE (MASS RATIO) IN SER/PLAS 12.5 Normal [facility] Comment on above: Performed By: #### L [id number] #### [facility] ([facility]) [address] [place] [address] CBCon 05-26-2024 Erythrocyte distribution width (RBC) [Ratio] 18.9 % High 11.5-15.0 [facility] Comment on above: Performed By: #### L [id number] #### [facility] ([facility]) [address] [place] [address] ERYTHROCYTE MEAN CORPUSCULAR HEMOGLOBIN CONCENTRATION (G/DL) BY AUTOMATED 33.6 g/dL Normal 32.0-35.0 [facility] Comment on above: Performed By: #### L [id number] #### [facility] ([facility]) [address] [place] [address] Hematocrit (Bld) [Volume fraction] 23.2 % Low 36.0-45.0 [facility] Comment on above: Performed By: #### L [id number] #### [facility] ([facility]) [address] [place] [address] Hemoglobin (Bld) [Mass/Vol] 7.8 g/dL Low 12.0-15.0 [facility] Comment on above: Performed By: #### L [id number] #### [facility] [address] [place] [address] MCH (RBC) [Entitic mass] 29.9 pg Normal 27.0-33.0 [facility] Comment on above: Performed By: #### L [id number] #### [facility] ([facility]) [address] [place] [address] MCV (RBC) [Entitic vol] 88.9 fL Normal 82.0-98.0 [facility] Comment on above: Performed By: #### L [id number] #### [facility] ([facility]) [address] [place] [address] PLATELETS (10*3/UL) IN BLOOD AUTOMATED COUNT 114 10*3/uL Low 150-400 [facility] Comment on above: Performed By: #### L [id number] #### [facility] ([facility]) [address] [place] [address] RBC (Bld) [#/Vol] 2.61 10*6/uL Low 3.80-5.00 [facility] Comment on above: Performed By: #### L [id number] #### [facility] ([facility]) [address] [place] [address] WBC (Bld) [#/Vol] 2.08 10*3/uL Low 4.00-10.60 [facility] Comment on above: Performed By: #### L [id number] #### [facility] ([facility]) [address] [place] [address] 30on 05-25-2024 30 The patient is Moderately [...] injury: Assess patient frequently for physical needs Fred fall precautions as indicated by assessment Problem: [...] symptoms for stability, deterioration, or improvement Normal [facility] 30 The patient is Moderately Stable - Low risk of patient condition declining or worsening The patient's goals for the shift include comfort The clinical goals for the shift include stable vitals and pain management Over the shift, the patient did not make progress toward the following goals. Barriers to progression include . Recommendations to address these barriers include . Normal [facility] AMIKACIN LEVEL, RANDOMon AMIKACIN (UG/ML) IN SER/PLAS 0.9 ug/mL Normal 0.0-40.0 [facility] Comment on above: Result Comment: Test Performed by [facility] [address] [place] [address] - Released 05/26/2024 05:17 Performed By: #### L [id number] #### [facility] [address] [place] [address] BASIC METABOLIC PANELon 05-01 Anion gap [Moles/Vol] 11 mmol/L Normal 7-20 [facility] Comment on above: Performed By: #### L [id number] #### [facility] [facility] ([facility] [address] [place] [address] Calcium [Mass/Vol] 8.0 mg/dL Low 8.6-10.3 [facility] Comment on above: Performed By: #### L [id number] #### [facility] ([facility]) [address] [place] [address] Chloride [Moles/Vol] 105 mmol/L Normal 98-107 [facility] Comment on above: Performed By: #### L [id number] #### [facility] ([facility]) [address] [place] [address] CO2 [Moles/Vol] 26 mmol/L Normal 21-31 [facility] Comment on above: Performed By: #### L [id number] #### [facility] ([facility]) [address] [place] [address] Creatinine [Mass/Vol] 0.69 mg/dL Normal 0.60-1.20 [facility] Comment on above: Performed By: #### L [id number] #### [facility] ([facility]) [address] [place] [address] GLOMERULAR FILTRATION RATE ML/MIN/1.73 SQ M.PREDICTED 103.7 mL/min/1.73m*2 Normal >60.0 [facility] Comment on above: Result Comment: The [facility]???s estimated glomerular filtration rate (eGFR) will no [...] group of individuals. Performed By: #### L [id number] #### [facility] ([facility]) [address] [place] [address] Glucose [Mass/Vol] 79 mg/dL Normal 70-100 [facility] Comment on above: Performed By: #### L [id number] #### [facility] [address] [place] [address] Potassium [Moles/Vol] 3.5 mmol/L Normal 3.5-5.1 [facility] Comment on above: Performed By: #### L [id number] #### [facility] [address] [place] [address] Sodium [Moles/Vol] 138 mmol/L Normal 136-145 [facility] Comment on above: Performed By: #### L [id number] #### [facility] ([facility]) [address] [place] [address] Urea nitrogen [Mass/Vol] 8 mg/dL Normal 7-25 [facility] Comment on above: Performed By: #### L [id number] #### [facility] ([facility]) [address] [place] [address] UREA NITROGEN/CREATININE (MASS RATIO) IN SER/PLAS 11.6 Normal [facility] Comment on above: Performed By: #### L [id number] #### [facility] ([facility]) [address] [place] [address] CBCon 05-25-2024 Erythrocyte distribution width (RBC) [Ratio] 19.3 % High 11.5-15.0 [facility] Comment on above: Performed By: #### L [id number] #### [facility] ([facility]) [address] [place] [address] ERYTHROCYTE MEAN CORPUSCULAR HEMOGLOBIN CONCENTRATION (G/DL) BY AUTOMATED 32.9 g/dL Normal 32.0-35.0 [facility] Comment on above: Performed By: #### L [id number] #### [facility] [address] [place] [address] Hematocrit (Bld) [Volume fraction] 22.8 % Low 36.0-45.0 [facility] Comment on above: Performed By: #### L [id number] #### [facility] [address] [place] [address] Hemoglobin (Bld) [Mass/Vol] 7.5 g/dL Low 12.0-15.0 [facility] Comment on above: Performed By: #### L [id number] #### [facility] [address] [place] [address] MCH (RBC) [Entitic mass] 30.1 pg Normal 27.0-33.0 [facility] Comment on above: Performed By: #### L [id number] #### [facility] ([facility]) [address] [place] [address] MCV (RBC) [Entitic vol] 91.6 fL Normal 82.0-98.0 [facility] Comment on above: Performed By: #### L [id number] #### [facility] ([facility]) [address] [place] [address] PLATELETS (10*3/UL) IN BLOOD AUTOMATED COUNT 151 10*3/uL Normal 150-400 [facility] Comment on above: Performed By: #### L [id number] #### [facility] ([facility]) [address] [place] [address] RBC (Bld) [#/Vol] 2.49 10*6/uL Low 3.80-5.00 [facility] Comment on above: Performed By: #### L [id number] #### [facility] ([facility]) [address] [place] [address] WBC (Bld) [#/Vol] 2.68 10*3/uL Low 4.00-10.60 [facility] Comment on above: Performed By: #### L [id number] #### [facility] ([facility]) [address] [place] [address] 30on 05-24-2024 30 The patient is Moderately Stable - Low risk of patient condition declining or worsening The patient's goals for the shift include comfort and safety The clinical goals for the shift include stable vitals and labs, pain management Normal [facility] 30 The patient is Moderately Stable - [...] maintained or improved Outcome: Not Progressing Normal [facility] AMIKACIN LEVEL, PEAKon 05-24 AMIKACIN (UG/ML) IN SER/PLAS - PEAK 26.3 ug/mL High 20.0-25.0 [facility] Comment on above: Order Comment: Pleas e obtain 60 minutes after end of amikacin infusion Result Comment: Test Performed by [facility] [address] [place] [address] - Released 05/24/2024 08:06 Performed By: #### L [id number] #### [employer] [facility] [address] [place] [address] BASIC METABOLIC PANELon 05-01 Anion gap [Moles/Vol] 9 mmol/L Normal 7-20 [facility] Comment on above: Performed By: #### L [id number] ####[facility] (BEAKER)[address] [place] [address] Calcium [Mass/Vol] 8.1 mg/dL Low 8.6-10.3 [facility] Comment on above: Performed By: #### L [id number] ####[facility] ([facility] [place] [address] Chloride [Moles/Vol] 106 mmol/L Normal 98-107 [facility] Comment on above: Performed By: #### L [id number] ####[facility] (BEAKER)[address] [place] [address] CO2 [Moles/Vol] 26 mmol/L Normal 21-31 [facility] Comment on above: Performed By: #### L [id number] ####[facility] (AKER)[address] [place] [address] Creatinine [Mass/Vol] 0.60 mg/dL Normal 0.60-1.20 [facility] Comment on above: Performed By: #### L [id number] ####[facility] ([facility])[address] [place] [address] GLOMERULAR FILTRATION RATE ML/MIN/1.73 SQ M.PREDICTED 107.3 mL/min/1.73m*2 Normal >60.0 [facility] Comment on above: Result Comment: The [facility]???s estimated glomerular filtration rate (eGFR) will no [...] of individuals. Performed By: #### L [id number] ####[facility] ([facility])[address] [place] [address] Glucose [Mass/Vol] 92 mg/dL Normal 70-100 [facility] Comment on above: Performed By: #### L [id number] ####[facility] ([facility])[address] [place] [address] Potassium [Moles/Vol] 3.0 mmol/L Low 3.5-5.1 [facility] Comment on above: Performed By: #### L [id number] ####[facility] ([facility])[address] [place] [address] Sodium [Moles/Vol] 138 mmol/L Normal 136-145 [facility] Comment on above: Performed By: #### L [id number] ####[facility] ([facility])[address] [place] [address] Urea nitrogen [Mass/Vol] 9 mg/dL Normal 7-25 [facility] Comment on above: Performed By: #### L [id number] ####[facility] ([facility])[address] [place] [address] UREA NITROGEN/CREATININE (MASS RATIO) IN SER/PLAS 15.0 Normal [facility] Comment on above: Performed By: #### L [id number] ####[facility] ([facility])[address] [place] [address] BLOOD CULTUREon 05-24-2024 Bacteria identified Cx Nom (Bld) No growth at 5 days Normal [facility] Comment on above: Order Comment: From a different site than #1. Performed By: #### L [id number] ####[facility] ([facility])[address] [place] [address] Bacteria identified Cx Nom (Bld) No growth at 5 days Normal [facility] Comment on above: Performed By: #### L [id number] ####[facility] ([facility])[address] [place] [address] CBC WITH AUTO DIFFERENTIALon 05-24-2024 Erythrocyte distribution width (RBC) [Ratio] 19.2 % High 11.5-15.0 [facility] Comment on above: Performed By: #### L [id number] #### [facility] ([facility]) [address] [place] [address] ERYTHROCYTE MEAN CORPUSCULAR HEMOGLOBIN CONCENTRATION (G/DL) BY AUTOMATED 32.5 g/dL Normal 32.0-35.0 [facility] Comment on above: Performed By: #### L [id number] #### [facility] ([facility]) [address] [place] [address] Hematocrit (Bld) [Volume fraction] 25.5 % Low 36.0-45.0 [facility] Comment on above: Performed By: #### L [id number] #### [facility] ([facility]) [address] [place] [address] Hemoglobin (Bld) [Mass/Vol] 8.3 g/dL Low 12.0-15.0 [facility] Comment on above: Performed By: #### L [id number] #### [facility] [address] [place] [address] MCH (RBC) [Entitic mass] 30.1 pg Normal 27.0-33.0 [facility] Comment on above: Performed By: #### L [id number] #### [facility] ([facility]) [address] [place] [address] MCV (RBC) [Entitic vol] 92.4 fL Normal 82.0-98.0 [facility] Comment on above: Performed By: #### L [id number] #### [facility] ([facility]) [address] [place] [address] NRBC (PER 100 WBCS) BY AUTOMATED COUNT 0.0 % Normal 0 [facility] Comment on above: Performed By: #### L [id number] #### [facility] ([facility]) [address] [place] [address] PLATELETS (10*3/UL) IN BLOOD AUTOMATED COUNT 193 10*3/uL Normal 150-400 [facility] Comment on above: Performed By: #### L [id number] #### [facility] ([facility]) [address] [place] [address] RBC (Bld) [#/Vol] 2.76 10*6/uL Low 3.80-5.00 [facility] Comment on above: Performed By: #### L [id number] #### [facility] ([facility]) [address] [place] [address] WBC (Bld) [#/Vol] 2.10 10*3/uL Low 4.00-10.60 [facility] Comment on above: Performed By: #### L [id number] #### [facility] ([facility]) [address] [place] [address] CONSULTon 05-24-2024 CONSULT Infectious Diseases - Initial [...] The wound is currently open and packed. [facility] was going to get a wound [...] Patient was seen in the ER at [facility] a couple days ago for fever but [...] 100 mL/hr, Last Rate: 100 mL/hr (05/23/24 2351) Social History: Social History Socioeconomic History Marital [...] Physical Activity: Sufficiently Active (02/27/2022) Received from [employer] Exercise Vital Sign Days of Exercise per Week: 3 days Minutes of Exercise per Session: 60 min Stress: Stress Concern Present (02/27/2022) Received from [employer] [place] [employer] - Occupational Stress Questionnaire Feeling of Stress : To some extent Social Connections: Socially Integrated (02/27/2022) Received from [employer] Social Connection and Isolation Panel [NHANES] Frequency of Communication with Friends and Family: Twice a week Frequency of Social Gatherings with Friends and Family: Three times a week Attends [employer]: More than 4 times per year [...] Times Moved in (more content not included)... [facility] HEPATITIS PANEL, ACUTEon HEPATITIS A VIRUS IGM AB PRESENCE IN SER/PLAS Non-Reactive Normal Nonreactive [facility] Comment on above: Performed By: #### L [id number] #### [facility] ([facility]) [address] [place] [address] HEPATITIS B VIRUS CORE AB (PRESENCE) IN SER/PLAS BY IMM Non-Reactive Normal Nonreactive [facility] Comment on above: Performed By: #### L [id number] #### [facility] ([facility]) [address] [place] [address] HEPATITIS B VIRUS SURFACE AG PRESENCE IN SERUM Non-Reactive Normal Nonreactive [facility] Comment on above: Performed By: #### L [id number] #### [facility] ([facility]) [address] [place] [address] HEPATITIS C VIRUS AB PRESENCE IN SERUM Non-Reactive Normal Nonreactive [facility] Comment on above: Performed By: #### L [id number] #### [facility] ([facility]) [address] [place] [address] LACTIC ACID WITH 4 HOUR REFL EXon 05-24-2024 LACTATE (MMOL/L) IN SER/PLAS 0.7 mmol/L Normal 0.5-2.2 [facility] Comment on above: Performed By: #### L [id number] #### [facility] ([facility]) [address] [place] [address] MAGNESIUMon 05-24-2024 Magnesium [Mass/Vol] 1.6 mg/dL Low 1.9-2.7 [facility] Comment on above: Performed By: #### L [id number] #### [facility] ([facility]) [address] [place] [address] MANUAL DIFFERENTIALon 2024 ANISOCYTOSIS PRESENCE IN BLOOD BY LIGHT MICROSCOPY Moderate Normal [facility] Comment on above: Performed By: #### L [id number] ####[facility] ([facility])[address] [place] [address] BASOPHILS (10*3/UL) IN BLOOD BY CALCULATION 0.01 10*3/uL Normal 0.00-0.20 [facility] Comment on above: Performed By: #### L [id number] ####[facility] ([facility])[address] [place] [address] BASOPHILS/100 LEUKOCYTES IN BLOOD BY AUTOMATED COUNT 0.5 % Normal 0.0-1.0 [facility] Comment on above: Performed By: #### L [id number] ####[facility] ([facility])[address] [place] [address] EOSINOPHILS (10*3/UL) IN BLOOD BY CALCULATION 0.16 10*3/uL Normal 0.00-0.50 [facility] Comment on above: Performed By: #### L [id number] ####[facility] ([facility])[address] [place] [address] EOSINOPHILS/100 LEUKOCYTES IN BLOOD BY AUTOMATED COUNT 7.6 % High 0.0-6.0 [facility] Comment on above: Performed By: #### L [id number] ####[facility] ([facility])[address] [place] [address] IMMATURE GRANULOCYTES (10*3/UL) IN BLOOD BY CALCULATION 0.02 10*3/uL Normal 0.00-0.20 [facility] Comment on above: Performed By: #### L [id number] ####[facility] ([facility])[address] [place] [address] IMMATURE GRANULOCYTES/100 LEUKOCYTES IN BLOOD BY AUTOMATED COUNT 1.0 % Normal 0.0-1.0 [facility] Comment on above: Performed By: #### L [id number] ####[facility] ([facility])[address] [place] [address] LYMPHOCYTES (10*3/UL) IN BLOOD BY CALCULATION 0.51 10*3/uL Low 1.20-4.00 [facility] Comment on above: Performed By: #### L [id number] ####[facility] ([facility])[address] [place] [address] LYMPHOCYTES/100 LEUKOCYTES IN BLOOD BY AUTOMATED COUNT 24.3 % Normal 20.0-45.0 [facility] Comment on above: Performed By: #### L [id number] ####[facility] ([facility])[address] [place] [address] MONOCYTES (10*3/UL) IN BLOOD BY CALCUATION 0.34 10*3/uL Normal 0.10-1.00 [facility] Comment on above: Performed By: #### L [id number] ####[facility] ([facility])[address] [place] [address] MONOCYTES/100 LEUKOCYTES IN BLOOD BY AUTOMATED COUNT 16.2 % High 5.0-12.0 [facility] Comment on above: Performed By: #### L [id number] ####[facility] ([facility])[address] [place] [address] NEUTROPHILS (10*3/UL) IN BLOOD BY CALCULATION 1.1 10*3/uL Low 1.6-7.6 [facility] Comment on above: Performed By: #### L [id number] ####[facility] ([facility])[address] [place] [address] NEUTROPHILS/100 LEUKOCYTES IN BLOOD BY AUTOMATED COUNT 50.4 % Normal 40.0-72.0 [facility] Comment on above: Performed By: #### L [id number] ####[facility] ([facility])[address] [place] [address] POIKILOCYTOSIS (PRESENCE) IN BLOOD BY LIGHT MICROSCOPY Slight Normal [facility] Comment on above: Performed By: #### L [id number] ####[facility] [place] [address] POLYCHROMASIA IN BLOOD BY LIGHT MICROSCOPY Slight Normal [facility] Comment on above: Performed By: #### L [id number] ####[facility] [place] [address] SEDIMENTATION RATEon 03-25-2 025 SEDIMENTATION RATE, ERYTHROCYTE 3 mm/hr Normal <30 [facility] Comment on above: Performed By: #### L [id number] #### [facility] ([facility]) [address] [place] [address] URINALYSIS WITH REFLEX CULTU REon 05-24-2024 BILIRUBIN, TOTAL PRESENCE IN URINE Negative Normal Negative [facility] Comment on above: Order Comment: Micro scopics not performed on urines with negative chemical reactions unless requested on original order. Performed By: #### L [id number] #### [facility] ([facility]) [address] [place] [address] Clarity (U) Clear Normal Clear [facility] Comment on above: Order Comment: Micro scopics not performed on urines with negative chemical reactions unless requested on original order. Performed By: #### L [id number] #### [facility] ([facility]) [address] [place] [address] Color (U) Colorless Normal Colorless, Yellow, Light-Yellow [facility] Comment on above: Order Comment: Micro scopics not performed on urines with negative chemical reactions unless requested on original order. Performed By: #### L [id number] #### [facility] ([facility]) [address] [place] [address] GLUCOSE (MG/DL) IN URINE Normal Normal Normal [facility] Comment on above: Order Comment: Micro scopics not performed on urines with negative chemical reactions unless requested on original order. Performed By: #### L [id number] #### [facility] ([facility]) [address] [place] [address] HEMOGLOBIN PRESENCE IN URINE Negative Normal Negative [facility] Comment on above: Order Comment: Micro scopics not performed on urines with negative chemical reactions unless requested on original order. Performed By: #### L [id number] #### [facility] ([facility]) [address] [place] [address] Ketones Ql (U) Negative Normal Negative [facility] Comment on above: Order Comment: Micro scopics not performed on urines with negative chemical reactions unless requested on original order. Performed By: #### L [id number] #### [facility] ([facility]) [address] [place] [address] LEUKOCYTE ESTERASE PRESENCE IN URINE BY TEST STRIP Negative Normal Negative [facility] Comment on above: Order Comment: Micro scopics not performed on urines with negative chemical reactions unless requested on original order. Performed By: #### L [id number] #### [facility] ([facility]) [address] [place] [address] NITRITE PRESENCE IN URINE Negative Normal Negative [facility] Comment on above: Order Comment: Micro scopics not performed on urines with negative chemical reactions unless requested on original order. Performed By: #### L [id number] #### [facility] ([facility]) [address] [place] [address] pH (U) 6.5 [pH] Normal 5.0-8.0 [facility] Comment on above: Order Comment: Micro scopics not performed on urines with negative chemical reactions unless requested on original order. Performed By: #### L [id number] #### [facility] ([facility]) [address] [place] [address] Protein (U) [Mass/Vol] Negative Normal Negative [facility] Comment on above: Order Comment: Micro scopics not performed on urines with negative chemical reactions unless requested on original order. Performed By: #### L [id number] #### [facility] ([facility]) [address] [place] [address] Specific gravity (U) [Rel density] 1.006 Low 1.010-1.030 [facility] Comment on above: Order Comment: Micro scopics not performed on urines with negative chemical reactions unless requested on original order. Performed By: #### L [id number] #### [facility] ([facility]) [address] [place] [address] UROBILINOGEN (MG/DL) IN URINE Normal Normal Normal [facility] Comment on above: Order Comment: Micro scopics not performed on urines with negative chemical reactions unless requested on original order. Performed By: #### L [id number] #### [facility] [address] [place] [address] 36on 05-23-2024 36 Patient called again stating that she feels awful and fevers going up to 103.6. She is taking Oxycodone and it is not helping. Advised patient to present to ER. Patient stated she is headed to [facility] ER. [facility] 36 She went to [facility], and looks like they talked with both Dr. Lui and Dr. Zaragoza. Work up was benign other than fever which improved with IV tylenol and Zofran. Recommended admitting for observation or going home. She went home and said she would call if things worsened. (I have actually never seen the pt) [facility] 36 What do you suppose we should suggest here? [facility] 36 I spoke to her yesterday and had her go to her local ER to get tested for flu and covid [facility] [address] Lui recommended she go to the ER last night. She went and no relief today Fever spikes ( Last checked this morning 98.8) Terrible headache( constant, on top of head, rate pain 8) [facility] CBC WITH AUTO DIFFERENTIALon 05-23-2024 Erythrocyte distribution width (RBC) [Ratio] 19.5 % High 11.5-15.0 [facility] Comment on above: Performed By: #### L [id number] #### [facility] ([facility]) [address] [place] [address] ERYTHROCYTE MEAN CORPUSCULAR HEMOGLOBIN CONCENTRATION (G/DL) BY AUTOMATED 32.8 g/dL Normal 32.0-35.0 [facility] Comment on above: Performed By: #### L [id number] #### [facility] ([facility]) [address] [place] [address] Hematocrit (Bld) [Volume fraction] 29.0 % Low 36.0-45.0 [facility] Comment on above: Performed By: #### L [id number] #### [facility] ([facility]) [address] [place] [address] Hemoglobin (Bld) [Mass/Vol] 9.5 g/dL Low 12.0-15.0 [facility] Comment on above: Performed By: #### L [id number] #### [facility] ([facility]) [address] [place] [address] MCH (RBC) [Entitic mass] 30.4 pg Normal 27.0-33.0 [facility] Comment on above: Performed By: #### L [id number] #### [facility] ([facility]) [address] [place] [address] MCV (RBC) [Entitic vol] 92.9 fL Normal 82.0-98.0 [facility] Comment on above: Performed By: #### L [id number] #### [facility] ([facility]) [address] [place] [address] NRBC (PER 100 WBCS) BY AUTOMATED COUNT 0.0 % Normal 0 [facility] Comment on above: Performed By: #### L [id number] #### [facility] ([facility]) [address] [place] [address] PLATELETS (10*3/UL) IN BLOOD AUTOMATED COUNT 220 10*3/uL Normal 150-400 [facility] Comment on above: Performed By: #### L [id number] #### [facility] ([facility]) [address] [place] [address] RBC (Bld) [#/Vol] 3.12 10*6/uL Low 3.80-5.00 [facility] Comment on above: Performed By: #### L [id number] #### [facility] ([facility]) [address] [place] [address] WBC (Bld) [#/Vol] 6.69 10*3/uL Normal 4.00-10.60 [facility] Comment on above: Performed By: #### L [id number] #### [facility] ([facility]) [address] [place] [address] COMPREHENSIVE METABOLIC PANE [place] 05-23-2024 Albumin [Mass/Vol] 3.6 g/dL Normal 3.5-5.7 [facility] Comment on above: Performed By: #### L [id number] #### [facility] ([facility]) [address] [place] [address] ALP [Catalytic activity/Vol] 70 U/L Normal 34-104 [facility] Comment on above: Performed By: #### L [id number] #### [facility] (BEAKER) [address] [place] [address] ALT [Catalytic activity/Vol] 26 U/L Normal 7-52 [facility] Comment on above: Performed By: #### L [id number] #### [facility] (BEAKER) [address] [place] [address] Anion gap [Moles/Vol] 11 mmol/L Normal 7-20 [facility] Comment on above: Performed By: #### L [id number] #### [facility] [address] [place] [address] AST [Catalytic activity/Vol] 87 U/L High 13-39 [facility] Comment on above: Performed By: #### L [id number] #### [facility] (BEAKER) [address] [place] [address] Bilirubin [Mass/Vol] 0.7 mg/dL Normal 0.3-1.0 [facility] Comment on above: Performed By: #### L [id number] #### [facility] [address] [place] [address] Calcium [Mass/Vol] 8.7 mg/dL Normal 8.6-10.3 [facility] Comment on above: Performed By: #### L [id number] #### [facility] (BEAKER) [address] [place] [address] Chloride [Moles/Vol] 102 mmol/L Normal 98-107 [facility] Comment on above: Performed By: #### L [id number] #### [facility] (BEAKER) [address] [place] [address] CO2 [Moles/Vol] 25 mmol/L Normal 21-31 [facility] Comment on above: Performed By: #### L [id number] #### [facility] ([facility]) [address] [place] [address] Creatinine [Mass/Vol] 0.73 mg/dL Normal 0.60-1.20 [facility] Comment on above: Performed By: #### L [id number] #### [facility] ([facility]) [address] [place] [address] GLOMERULAR FILTRATION RATE ML/MIN/1.73 SQ M.PREDICTED 98.3 mL/min/1.73m*2 Normal >60.0 [facility] Comment on above: Result Comment: The [facility]???s estimated glomerular filtration rate (eGFR) will no [...] group of individuals. Performed By: #### L [id number] #### [facility] ([facility]) [address] [place] [address] Glucose [Mass/Vol] 103 mg/dL High 70-100 [facility] Comment on above: Performed By: #### L [id number] #### [facility] ([facility]) [address] [place] [address] Potassium [Moles/Vol] 3.5 mmol/L Normal 3.5-5.1 [facility] Comment on above: Performed By: #### L [id number] #### [facility] ([facility]) [address] [place] [address] Protein [Mass/Vol] 6.1 g/dL Normal 6.0-8.3 [facility] Comment on above: Performed By: #### L [id number] #### [facility] (BEAKER) [address] [place] [address] Sodium [Moles/Vol] 134 mmol/L Low 136-145 [facility] Comment on above: Performed By: #### L [id number] #### [facility] (BEAKER) [address] [place] [address] Urea nitrogen [Mass/Vol] 9 mg/dL Normal 7-25 [facility] Comment on above: Performed By: #### L [id number] #### [facility] (BEAKER) [address] [place] [address] UREA NITROGEN/CREATININE (MASS RATIO) IN SER/PLAS 12.3 Normal [facility] Comment on above: Performed By: #### L [id number] #### [facility] [address] [place] [address] ED Note-Physicianon 05-24-19 ED Note-Physician ED Note-Physician [...] and Complexity of Problems Differential Diagnosis: [] [facility] Data External documents reviewed: [] My [...] Lui as her infectious disease doctor at [facility]. Reports that he was the one [...] to concerns, I did reach out to [facility] as well as I did talk [...] Head ache (more content not included)... Normal [facility] Comment on above: Result Comment: Elec tronically [...] and came up with nothing . Normal [facility] EDPROVon 05-23-2024 EDPROV [facility] EMERGENCY DEPARTMENT ENCOUNTER Pt Name: Ike [...] the patient go home and present to [facility] ED if symptoms persist/worsen. Patient opted [...] 5 mg by mouth two times daily. pilhqxbc-dnskirokv-ope cium [facility] (Jose) 7-7-1.5 gram powder in [...] capsule Take (more content not included)... Normal [facility] MANUAL DIFFERENTIALon 2024 ANISOCYTOSIS PRESENCE IN BLOOD BY LIGHT MICROSCOPY Moderate Normal [facility] Comment on above: Performed By: #### L [id number] ####[facility] ([facility])[address] [place] [address] BASOPHILS (10*3/UL) IN BLOOD BY CALCULATION 0.01 10*3/uL Normal 0.00-0.20 [facility] Comment on above: Performed By: #### L [id number] ####[facility] [place] [address] BASOPHILS/100 LEUKOCYTES IN BLOOD BY AUTOMATED COUNT 0.1 % Normal 0.0-1.0 [facility] Comment on above: Performed By: #### L [id number] ####[facility] [place] [address] EOSINOPHILS (10*3/UL) IN BLOOD BY CALCULATION 0.10 10*3/uL Normal 0.00-0.50 [facility] Comment on above: Performed By: #### L [id number] ####[facility] (BEAKER)[address] [facility] [place] [address] EOSINOPHILS/100 LEUKOCYTES IN BLOOD BY AUTOMATED COUNT 1.5 % Normal 0.0-6.0 [facility] Comment on above: Performed By: #### L [id number] ####[facility] (BEAKER)[address] [place] [address] IMMATURE GRANULOCYTES (10*3/UL) IN BLOOD BY CALCULATION 0.02 10*3/uL Normal 0.00-0.20 [facility] Comment on above: Performed By: #### L [id number] ####[facility] ([facility])[address] [place] [address] IMMATURE GRANULOCYTES/100 LEUKOCYTES IN BLOOD BY AUTOMATED COUNT 0.3 % Normal 0.0-1.0 [facility] Comment on above: Performed By: #### L [id number] ####[facility] ([facility])[address] [place] [address] LYMPHOCYTES (10*3/UL) IN BLOOD BY CALCULATION 0.26 10*3/uL Low 1.20-4.00 [facility] Comment on above: Performed By: #### L [id number] ####[facility] ([facility])[address] [place] [address] LYMPHOCYTES/100 LEUKOCYTES IN BLOOD BY AUTOMATED COUNT 3.9 % Low 20.0-45.0 [facility] Comment on above: Performed By: #### L [id number] ####[facility] ([facility])[address] [place] [address] MONOCYTES (10*3/UL) IN BLOOD BY CALCUATION 0.22 10*3/uL Normal 0.10-1.00 [facility] Comment on above: Performed By: #### L [id number] ####[facility] ([facility])[address] [place] [address] MONOCYTES/100 LEUKOCYTES IN BLOOD BY AUTOMATED COUNT 3.3 % Low 5.0-12.0 [facility] Comment on above: Performed By: #### L [id number] ####[facility] ([facility])[address] [place] [address] NEUTROPHILS (10*3/UL) IN BLOOD BY CALCULATION 6.1 10*3/uL Normal 1.6-7.6 [facility] Comment on above: Performed By: #### L [id number] ####[facility] [place] [address] NEUTROPHILS/100 LEUKOCYTES IN BLOOD BY AUTOMATED COUNT 90.9 % High 40.0-72.0 [facility] Comment on above: Performed By: #### L [id number] ####[facility] (BEAKER)[address] [place] [address] POIKILOCYTOSIS (PRESENCE) IN BLOOD BY LIGHT MICROSCOPY Slight Normal [facility] Comment on above: Performed By: #### L [id number] ####[facility] (AKER)[address] [place] [address] POLYCHROMASIA IN BLOOD BY LIGHT MICROSCOPY Slight Normal [facility] Comment on above: Performed By: #### L [id number] ####[facility] (AKER)[address] [place] [address] Orders Onlyon 05-23-2024 Orders Only [id number] Ike Flannery 1970 F Date Provider Department Center 05/23/2024 JOSSY ESQUEDA [facility] Family History Adopted: Yes Problem Relation Age of Onset Heart attack Father Family Status - Relation Status Age at Father Normal [facility] Telephoneon 05-23-2024 Telephone [id number] Ike Flannery 1970 F Date Provider Department Center 05/23/2024 ODALYS ACEVES [facility] Family History Adopted: Yes Problem Relation Age of Onset Heart attack Father Family Status - Relation Status Age at Father Normal [facility] XR Chest Single Viewon 05-23 XR Chest [...] 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 Ordering Provider: Benji Deleon FINAL REPORT Dictated: 05/23/2024 9:07 am Michael Pappas MD Signed (Electronic Signature): 05/23/2024 9:07 am Signed by: Michael Pappas MD Transcribed by: ELIAS Technologist: CML Normal [facility] CBC w/ Auto Diffon 5 Basophils/100 WBC (Bld) 0.5 % Normal 0.0-2.0 [facility] Comment on above: Performed By: #### 2 [id number] #### [facility] [address] [place] [address] Basophils/Leukocytes Auto (Bld) [Pure # fraction] 0.0 E9/L Normal 0.0-0.2 [facility] Comment on above: Performed By: #### 2 [id number] #### [facility] [address] [place] [address] Eosinophils (Bld) [#/Vol] 0.1 E9/L Normal 0.0-0.5 [facility] Comment on above: Performed By: #### 2 [id number] #### [facility] [address] [place] [address] Eosinophils/100 WBC (Bld) 3.8 % Normal 0.0-8.0 [facility] Comment on above: Performed By: #### 2 [id number] #### [facility] [address] [place] [address] Erythrocyte distribution width (RBC) [Ratio] 22.1 % High 10.9-14.2 [facility] Comment on above: Performed By: #### 2 [id number] #### [facility] [address] [place] [address] Hematocrit (Bld) [Volume fraction] 26.9 % Low 34.0-46.0 [facility] Comment on above: Performed By: #### 2 [id number] #### [facility] [address] [place] [address] Hemoglobin (Bld) [Mass/Vol] 9.4 g/dL Low 12.0-16.0 [facility] Comment on above: Performed By: #### 2 [id number] #### [facility] [address] [place] [address] Lymphocytes (Bld) [#/Vol] 0.3 E9/L Low 1.0-4.0 [facility] Comment on above: Performed By: #### 2 [id number] #### [facility] [address] [place] [address] Lymphocytes/100 WBC (Bld) 6.8 % Low 14.0-50.0 [facility] Comment on above: Performed By: #### 2 [id number] #### [facility] [address] [place] [address] MCH (RBC) [Entitic mass] 31.5 pg Normal 27.0-34.0 [facility] Comment on above: Performed By: #### 2 [id number] #### [facility] [address] [place] [address] MCHC (RBC) [Mass/Vol] 34.8 g/dL Normal 31.4-36.0 [facility] Comment on above: Performed By: #### 2 [id number] #### [facility] [address] [place] [address] MCV (RBC) [Entitic vol] 90.3 fL Normal 80.0-100.0 [facility] Comment on above: Performed By: #### 2 [id number] #### [facility] [address] [place] [address] Monocytes (Bld) [#/Vol] 0.2 E9/L Normal 0.2-1.0 [facility] Comment on above: Performed By: #### 2 [id number] #### [facility] [address] [place] [address] Neutrophils (Bld) [#/Vol] 3.2 E9/L Normal 2.0-7.5 [facility] Comment on above: Performed By: #### 2 [id number] #### [facility] [address] [place] [address] Neutrophils/100 WBC (Bld) 84.7 % High 36.0-75.0 [facility] Comment on above: Performed By: #### 2 [id number] #### [facility] [address] [place] [address] Platelet 188.0 E9/L Normal 150.0-500.0 [facility] Comment on above: Performed By: #### 2 196591 #### [facility] [address] [place] [address] Platelet mean volume (Bld) [Entitic vol] 7.2 fL Normal 6.4-10.8 [facility] Comment on above: Performed By: #### 2 [id number] #### [facility] [address] [place] [address] RBC (Bld) [#/Vol] 3.0 E12/L Low 4.3-5.9 [facility] Comment on above: Performed By: #### 2 [id number] #### [facility] [address] [place] [address] WBC corrected for nucl RBC Auto (Bld) [#/Vol] 3.8 E9/L Low 4.0-11.0 [facility] Comment on above: Performed By: #### 2 [id number] #### [facility] [address] [place] [address] CHEMISTRYOrdered By: SYSTEM SYSTEM on 05-22-2024 Albumin [...] Sensitivity Troponin I Instructions For Use, [place], September 2017) Urea nitrogen [Mass/Vol] 8 mg/dL Normal 5 - 21 mg/dL [facility] Urea nitrogen/Creatinine [Mass ratio] 11 mg/mg Normal 10 - 20 [facility] CMPon 05-22-2024 Albumin [Mass/Vol] 3.5 g/dL Normal 3.3-5.0 [facility] Comment on above: Performed By: #### 2 [id number] #### [facility] [address] [place] [address] Albumin/Globulin (S) [Mass conc ratio] 1.7 Normal 1.1-2.2 [facility] Comment on above: Performed By: #### 2 [id number] #### [facility] [address] [place] [address] ALP [Catalytic activity/Vol] 64 Int._Unit/L Normal 21-98 [facility] Comment on above: Performed By: #### 2 [id number] #### [facility] [address] [place] [address] ALT No additional P-5'-P [Catalytic activity/Vol] 26 Int._Unit/L Normal 6-46 [facility] Comment on above: Performed By: #### 2 [id number] #### [facility] [address] [place] [address] Anion gap [Moles/Vol] 10 mmol/L Normal 6-16 [facility] Comment on above: Performed By: #### 2 [id number] #### [facility] [address] [place] [address] AST [Catalytic activity/Vol] 45 Int._Unit/L High 5-43 [facility] Comment on above: Performed By: #### 2 [id number] #### [facility] [address] [place] [address] Bilirubin [Mass/Vol] 0.7 mg/dL Normal 0.0-1.1 [facility] Comment on above: Performed By: #### 2 586162 #### [facility] [address] [place] [address] Calcium [Mass/Vol] 8.8 mg/dL Low 8.9-11.1 [facility] Comment on above: Performed By: #### 2 594995 #### [facility] [address] [place] [address] Chloride [Moles/Vol] 105 mmol/L Normal 101-111 [facility] Comment on above: Performed By: #### 2 710504 #### [facility] [address] [place] [address] CO2 [Moles/Vol] 25 mmol/L Normal 21-[address] [facility] Comment on above: Performed By: #### 2 998464 #### [facility] [address] [place] [address] Creatinine [Mass/Vol] 0.7 mg/dL Normal 0.5-1.3 [facility] Comment on above: Performed By: #### 2 643585 #### [facility] [address] [place] [address] Globulin (S) [Mass/Vol] 2.1 g/dL Normal 1.4-4.0 [facility] Comment on above: Performed By: #### 2 [id number] #### [facility] [address] [place] [address] Glucose [Mass/Vol] 102 mg/dL Normal 55-199 [facility] Comment on above: Performed By: #### 2 [id number] #### [facility] [address] [place] [address] Potassium [Moles/Vol] 3.1 mmol/L Low 3.5-5.3 [facility] Comment on above: Performed By: #### 2 648944 #### [facility] [address] [place] [address] Protein [Mass/Vol] 5.6 g/dL Low 6.0-7.8 [facility] Comment on above: Performed By: #### 2 912427 #### [facility] [address] [place] [address] Sodium [Moles/Vol] 137 mmol/L Normal 135-145 [facility] Comment on above: Performed By: #### 2 [id number] #### [facility] [address] [place] [address] Urea nitrogen [Mass/Vol] 8 mg/dL Normal 5-21 [facility] Comment on above: Performed By: #### 2 [id number] #### [facility] [address] [place] [address] Urea nitrogen/Creatinine [Mass ratio] 11 No Units Normal 10-20 [facility] Comment on above: Performed By: #### 2 [id number] #### [facility] [address] [place] [address] COAGULATIONOrdered By: Seth Smith on 05-22-2024 aPTT Coag (PPP) [Time] 21.3 s Low 25.1 - 36.5 second(s) [facility] Comment on above: Interpretive Data: [...] same coagulation reagent and instrumentation as [facility]. Currently there are no coagulation studies available worldwide for children to 14 days, and no normal ranges. Heparin therapeutic range (represented by Anti-Factor Xa activity of 0.2 - 0.4 U/mL) corresponds to PTT of 56.6 - 109.0 sec. INR Coag (PPP) [Relative time] 1.29 {INR} Invalid Interpretation Code [facility] Comment on above: Interpretive Data: I NR results are specifically intended to assess patients stabilized on long-term Anticoagulation therapy suggested INR s Less Intensive Anticoagulation 2.0 3.0 Conventional Range 3.0 4.5 PT Coag (PPP) [Time] 14.5 s High 9.4 - 1 2.5 second(s) [facility] Comment on above: Interpretive Data: [...] obtained from a study by ann Thorpe al. prepared from 1437 samples obtained at 7 different centers using the same coagulation reagent and instrumentation as [facility]. Currently there are no coagulation studies available worldwide for children to 14 days, and no normal ranges. ED Clinical Summaryon 2024 ED Clinical Summary ED Clinical Summary [place] [id number] ED Clinical Summary Person Information Name: IKE FLANNERY/[facility] Age: 53 Years : 1970 Sex: Female Language: Grenadian PCP: RANDY CALLE DO Marital Status: Phone: [phone] Visit Id: Visit Reason: Chills; Headache; headache,fever,chills [...] 05/22/2024 23:11:22 ADDRESS: [id number] [facility] [phone] PHYS DOC NOTES: MEDICAL INFORMATION: Prescriptions Given: [...] Follow up: With: Address: When: HERMAN LUI [address] [place] [address] [address] [place] [address] In 3 days 05/25/2024 Comments: Call Dr for diagnosis based follow up With: Address: When: RANDY CALLE [address] [place] [id number] [facility] (2) In 3 days DIAGNOSIS: Body aches; Fever; Head ache Normal [facility] ED Patient Education Noteon 05-22-2024 ED Patient Education Note ED Patient Education Note Normal [facility] ED Patient Summaryon 025 ED Patient Summary ED Patient Summary [address] [id number] Patient Discharge Instructions Person Information Name: IKE FLANNERY Age: 53 Years Arrival Date: 05/22/2024 18:54:27 Discharge Diagnosis: Body aches; Fever; Head ache Primary Care Physician: RANDY CALLE DO Provider Information Primary Provider: Bárbara Garcia M.D. Advanced Billet Driller:Benji Deleon PA-C The exam and treatment you received in the Emergency Department were for an urgent problem and are not intended as complete care. It is important that you follow up with a doctor, nurse practitioner, or physician???s patient support assistant for ongoing care. If your symptoms [...] Follow-up Instructions: With: Address: When: HERMAN LUI [address] [place] [address] In 3 days 05/25/2024 Comments: Call Dr for diagnosis based follow up With: Address: When: RANDY CALLE [address] [place], [place] [id number] [facility] (1) In 3 days In the event that this physician does not participate in your insurance network, please consult with your insurance company to find a nearby participating provider. Patient Education Materials: A MESSAGE TO ALL PATIENTS REGARDING OPIOIDS PRESCRIPTION OPIOIDS: WHAT YOU NEED TO KNOW Prescription opioids can be used to help relieve goqrwpks-qu-ccndwa pain and are often prescribed following a [...] learn about (more content not included)... Normal [facility] HEMATOLOGYOrdered By: SYSTEM SYSTEM on 05-22-2024 Basophils/100 [...] Agon Influenzae A Ag Negative Normal Negative [facility] Comment on above: Performed By: #### 1 [id number] #### [facility] [address] [place] [address] Influenzae B Ag Negative Normal Negative [facility] Comment on above: Result Comment: Test sensitivity and specificity vary for age group, specimen type, antigen types, and prevalence of disease. Test results must be evaluated in conjunction with other clinical data available to the physician. Individuals who received nasally administered Influenza A vaccine may have positive test results up to 3 days after vaccination. Performed By: #### 1 [id number] #### [facility] [address] [place] [address] Lactic Acidon 05-22-2024 Lactic Acid Lvl 1.0 mmol/L Normal 0.5-2.[address] [facility] Comment on above: Performed By: #### 2 [id number] #### [facility] [address] [place] [address] MICRO OTHER TESTSOrdered By: Elke Barrientos on 05-22-2024 Influenzae A Ag Negative (05/22/24 7:26 PM) Normal Negative [facility] Influenzae B Ag Negative 2 (05/22/24 7:26 PM) Normal Negative [facility] Comment on above: Interpretive Data: [...] NEG Ctl Pass (05/22/24 7:26 PM) Normal [facility] Rapid COV Int POS Ctl Pass (05/22/24 7:26 PM) Normal [facility] SARS-CoV+SARS-CoV-2 (COVID-19) Ag IA.rapid Ql (Resp) Not Detected 7 (05/22/24 7:26 PM) Normal Not Detected [facility] Comment on above: Interpretive Data: Magui david [employer] Veritor System for Rapid Detection of SARS-CoV-2 [...] Coag (PPP) [Time] 21.3 second(s) Low 25.1-36.5 [facility] Comment on above: Result Comment: Para meter [...] same coagulation reagent and instrumentation as [facility]. Currently there are no coagulation studies available worldwide for children to 14 days, and no normal ranges. Heparin therapeutic range (represented by Anti-Factor Xa activity of 0.2 - 0.4 U/mL) corresponds to PTT of 56.6 - 109.0 sec. Performed By: #### 1 [id number] #### [facility] [address] [place] [address] INR Coag (PPP) [Relative time] 1.29 {INR} Invalid Interpretation Code [facility] Comment on above: Result Comment: INR results are specifically intended to assess patients stabilized on long-term Anticoagulation therapy suggested INR???s ???Less Intensive Anticoagulation??? 2.0 ??? 3.0 Conventional Range 3.0 ??? 4.5 Performed By: #### 1 [id number] #### [facility] [address] [place] [address] PT Coag (PPP) [Time] 14.5 second(s) High 9.4-12.5 [facility] Comment on above: Result Comment: 15 d [...] same coagulation reagent and instrumentation as [facility]. Currently there are no coagulation studies available worldwide for children to 14 days, and no normal ranges. Performed By: #### 1 [id number] #### [facility] [address] [place] [address] Rapid COVID Antigen ([facility])on 05-22-2024 Rapid COV Int NEG Ctl Pass Normal [facility] Comment on above: Performed By: #### 2 [id number] #### [facility] [address] [place] [address] Rapid COV Int POS Ctl Pass Normal [facility] Comment on above: Performed By: #### 2 [id number] #### [facility] [address] [place] [address] SARS-CoV+SARS-CoV-2 (COVID-19) Ag IA.rapid Ql (Resp) Not detected Normal Not Detected [facility] Comment on above: Result Comment: The [employer] Veritor??? System for Rapid Detection of SARS-CoV-2 [...] or revoked sooner. Performed By: #### 2 [id number] #### [facility] [address] [place] [address] Respiratory Panel by PCRon 0 05-22-2024 Adenovirus DNA KYLE+non-probe Ql (Nph) Not detected Normal [facility] Comment on above: Result Comment: Test ing was performed using nucleic acid amplification including Influenza A, Influenza A H1, Influenza A H3, Influenza B, RSV A, RSV B, Adenovirus, Human Metapneumovirus, Parainfluenza 1,2,3, and 4, Rhinovirus, Bordetella parapertussis/bronchiseptica, Bordetella holmesii, and Bordetella pertussis. Performed By: #### 1 [id number] #### [facility] [address] [place] [address] B. holmesii DNA KYLE+probe Ql (Unsp spec) Not detected Normal [facility] Comment on above: Performed By: #### 1 [id number] #### [facility] [address] [place] [address] B. parapertussis DNA KYLE+probe Ql (Upper resp) Not detected Normal Not Detected [facility] Comment on above: Performed By: #### 1 [id number] #### [facility] [address] [place] [address] BORDETELLA PERTUSSIS DNA:PRTHR:PT:XXX:ORD: Not detected Normal Not Detected [facility] Comment on above: Performed By: #### 1 [id number] #### [facility] [address] [place] [address] FLUAV H1 RNA KYLE+non-probe Ql (Nph) Not detected Normal [facility] Comment on above: Performed By: #### 1 [id number] #### [facility] [address] [place] [address] FLUAV H3 RNA KYLE+non-probe Ql (Nph) Not detected Normal [facility] Comment on above: Performed By: #### 1 [id number] #### [facility] [address] [place] [address] FLUAV RNA KYLE+non-probe Ql (Nph) Not detected Normal [facility] Comment on above: Performed By: #### 1 [id number] #### [facility] [address] [place] [address] FLUBV RNA KYLE+non-probe Ql (Nph) Not detected Normal [facility] Comment on above: Performed By: #### 1 [id number] #### [facility] [address] [place] [address] Human Metapneumovirus Not detected Normal [facility] Comment on above: Result Comment: This test result should be correlated with clinical presentations and medical history by a healthcare provider to determine its clinical significance. Performed By: #### 1 [id number] #### [facility] [address] [place] [address] Parainfluenza virus 1 RNA KYLE+non-probe Ql (Nph) Not detected Normal [facility] Comment on above: Performed By: #### 1 [id number] #### [facility] [address] [place] [address] Parainfluenza virus 2 RNA KYLE+non-probe Ql (Nph) Not detected Normal [facility] Comment on above: Performed By: #### 1 [id number] #### [facility] [address] [place] [address] Parainfluenza virus 3 RNA KYLE+non-probe Ql (Nph) Not detected Normal [facility] Comment on above: Performed By: #### 1 [id number] #### [facility] [address] [place] [address] Parainfluenza virus 4 RNA KYLE+non-probe Ql (Nph) Not detected Normal [facility] Comment on above: Performed By: #### 1 [id number] #### [facility] [address] [place] [address] Resp Panel Intrl QC Pass Normal [facility] Comment on above: Performed By: #### 1 [id number] #### [facility] [address] [place] [address] Rhinovirus+Enteroviru s RNA KYLE+non-probe Ql (Nph) Not detected Normal [facility] Comment on above: Performed By: #### 1 [id number] #### [facility] [address] [place] [address] RSV A RNA KYLE+probe Ql (Nph) Not detected Normal [facility] Comment on above: Performed By: #### 1 [id number] #### [facility] [address] [place] [address] RSV B RNA KYLE+probe Ql (Nph) Not detected Normal [facility] Comment on above: Performed By: #### 1 [id number] #### [facility] [address] [place] [address] Troponinon 05-22-2024 Troponin HS 11.90 pg/mL Normal 10.10-27.10 [facility] Comment on above: Result Comment: The 95% CI (Confidence Interval) PPV (Positive Predictive Value) for myocardial infarction in females is 38 pg/mL, in males 51 pg/mL. The results should be used in conjunction with clinical conditions of myocardial infarction. (Access High Sensitivity Troponin I Instructions For Use, [place], September 2017) Performed By: #### 2 [id number] #### [facility] [address] [place] [address] UA with Cult Rflxon 05-23-19 25 Bilirubin Ql (U) Negative Normal Negative [facility] Comment on above: Performed By: #### 4 [id number] #### [facility] [address] [place] [address] Clarity (U) Clear Normal Clear [facility] Comment on above: Performed By: #### 4 [id number] #### [facility] [address] [place] [address] Color (U) Light-Yellow Normal Yellow [facility] Comment on above: Result Comment: Micr oscopic readings are only performed on those samples that meet specific criteria set forth by [facility]. Performed By: #### 4 [id number] #### [facility] [address] [place] [address] Glucose Ql (U) Negative Normal Negative [facility] Comment on above: Performed By: #### 4 [id number] #### [facility] [address] [place] [address] Hemoglobin Auto test strip (U) [Mass/Vol] Negative Normal Negative [facility] Comment on above: Performed By: #### 4 [id number] #### [facility] [address] [place] [address] Ketones Auto test strip Ql (U) Negative Normal Negative [facility] Comment on above: Performed By: #### 4 [id number] #### [facility] [address] [place] [address] Leukocyte esterase Auto test strip Ql (U) Negative Normal Negative [facility] Comment on above: Performed By: #### 4 [id number] #### [facility] [address] [place] [address] Nitrite Auto test strip Ql (U) Negative Normal Negative [facility] Comment on above: Performed By: #### 4 [id number] #### [facility] [address] [place] [address] pH (U) 7.5 [pH] Invalid Interpretation Code 5.0-9.0 [facility] Comment on above: Performed By: #### 4 [id number] #### [facility] [address] [place] [address] Protein Ql (U) Negative Normal Negative [facility] Comment on above: Performed By: #### 4 [id number] #### [facility] [address] [place] [address] Specific gravity (U) [Rel density] 1.013 Invalid Interpretation Code 1.005-1.030 [facility] Comment on above: Performed By: #### 4 [id number] #### [facility] [address] [place] [address] Urobilinogen (U) [Mass/Vol] Negative Normal Negative [facility] Comment on above: Performed By: #### 4 [id number] #### [facility] [address] [place] [address] Type of Urine collection method Clean Catch Normal [facility] Comment on above: Performed By: #### 4 [id number] #### [facility] [address] [place] [address] URINALYSISOrdered By: SYSTEM SYSTEM on 05-22-2024 Bilirubin Ql (U) Negative Normal Negativemg/ d L [facility] Auto SS Clarity (U) Clear (05/22/24 8:55 PM) Normal Clear [facility] Auto SS Color (U) Light-Yellow 1 (05/22/24 8:55 PM) Normal Yellow [facility] Auto SS Comment on above: Interpretive Data: M icroscopic readings are only performed on those samples that meet specific criteria set forth by [facility]. Glucose Ql (U) Negative Normal Negativemg/d L [facility] UA Auto SS Hemoglobin Auto test strip (U) [Mass/Vol] Negative Normal Negativemg/d L [facility]A Auto SS Ketones Auto test strip Ql (U) Negative Normal Negativemg/d L [facility]A Auto SS Leukocyte esterase Auto test strip Ql (U) Negative Normal NegativeLeu/ uL FT UA Auto SS Nitrite Auto test strip Ql (U) Negative Normal Negativemg/d L FT UA Auto SS pH (U) 7.5 *NA* (05/22/24 8:55 PM) Invalid Interpretation Code 5.0 - 9.0 [facility] Auto SS Protein Ql (U) Negative Normal Negativemg/d L FT UA Auto SS Specific gravity (U) [Rel density] 1.013 *NA* (05/22/24 8:55 PM) Invalid Interpretation Code 1.005 - 1.030 [facility]A Auto SS Urobilinogen (U) [Mass/Vol] Negative Normal Negativemg/d L [facility] UA Auto SS URINALYSISOrdered By: Benji mejia on 05-22-2024 UA Spec Desc Clean Catch (05/22/24 8:55 PM) Normal [facility] UA Auto SS eGFRon 05-22-2024 eGFR 103 mL/min/1.73 m2 Normal >=59 [facility] Comment on above: Performed By: #### 1 [id number] #### [facility] [address] [place] [address] Follow-Upon 05-20-2024 Follow-Up [id number] Ike Flannery 1970 F Date Provider Department Center 05/20/2024 184-HERMAN LUI [facility] Anthony Heal Family History Adopted: Yes Problem Relation Age of Onset Heart attack Father Family Status - Relation Status Age at Father Level of Service:53415 DC OFFICE/OUTPATIENT ESTABLISHED HIGH MDM 40 MIN Normal [facility] Orders Onlyon 05-20-2024 Orders Only [id number] Ike Flannery 1970 F Date Provider Department Center 05/20/2024 104AVI FRANCES [facility] Family History Adopted: Yes Problem Relation Age of Onset Heart attack Father Family Status - Relation Status Age at Father Normal [facility] 36on 05-16-2024 36 Received call back from [...] with Dr. Lui. Avi Tobar, PharmD, BCPS [facility] Telephoneon 05-16-2024 Telephone [id number] Ike Flannery Yumi 1970 F Date Provider Department Center 05/16/2024 [id number] FRANCES [facility] RX None Family History Adopted: Yes Problem Relation Age of Onset Heart attack Father Family Status - Relation Status Age at Father [facility] CBC AND AUTO DIFFon 05-14-19 25 ABSOLUTE BASOPHIL 0.1 X10E9/L Normal 0.0-0.2 [facility] Comment on above: Performed By: #### C BCA ####[facility] ([id number])5[address] [place] [address] ABSOLUTE NEUTROPHIL 9.3 X10E9/L High 1.5-6.6 [facility] Comment on above: Performed By: #### C BCA ####[facility] ([id number])5[address] [place] [address] Basophils/100 WBC (Bld) 0.6 % Normal [facility] Comment on above: Performed By: #### C BCA ####[facility] ([id number])5200 [facility] [place] [address] Eosinophils (Bld) [#/Vol] 0.1 10*3/uL Normal 0.0-0.4 [facility] Comment on above: Performed By: #### C BCA ####[facility] ([id number])5[address] [place] [address] Eosinophils/100 WBC (Bld) 1.3 % Normal [facility] Comment on above: Performed By: #### C BCA ####[facility] ([id number])[address] [place] [address] Erythrocyte distribution width (RBC) [Ratio] 21.8 % High 11.5-15.0 [facility] Comment on above: Performed By: #### C BCA ####[facility] ([id number])[address] [place] [address] Hematocrit (Bld) [Volume fraction] 26.6 % Low 35-47 [facility] Comment on above: Performed By: #### C BCA ####[facility] ([id number])[address] [place] [address] Hemoglobin (Bld) [Mass/Vol] 9.1 g/dL Low 11.7-15.5 [facility] Comment on above: Performed By: #### C BCA ####[facility] ([id number])[address] [place] [address] Lymphocytes (Bld) [#/Vol] 0.8 10*3/uL Low 1.0-3.5 [facility] Comment on above: Performed By: #### C BCA ####[facility] ([id number])5[address] [place] [address] Lymphocytes/100 WBC (Bld) 7.0 % Normal [facility] Comment on above: Performed By: #### C BCA ####[facility] ([id number])[address] [place] [address] MCH (RBC) [Entitic mass] 30.7 pg Normal 27-34 [facility] Comment on above: Performed By: #### C BCA ####[facility] ([id number])5[address] [place] [address] MCHC (RBC) [Mass/Vol] 34.4 g/dL Normal 32-36 [facility] Comment on above: Performed By: #### C BCA ####[facility] ([id number])[address] [place] [address] MCV (RBC) [Entitic vol] 89 fL Normal 80-100 [facility] Comment on above: Performed By: #### C BCA ####[facility] ([id number])[address] [place] [address] Monocytes (Bld) [#/Vol] 0.7 10*3/uL Normal 0-0.9 [facility] Comment on above: Performed By: #### C BCA ####[facility] ([id number])[address] [place] [address] Monocytes/100 WBC (Bld) 6.4 % Normal [facility] Comment on above: Performed By: #### C BCA ####[facility] ([id number])[address] [place] [address] Neutrophils/100 WBC (Bld) 84.7 % Normal [facility] Comment on above: Performed By: #### C BCA ####[facility] ([id number])[address] [place] [address] Platelet mean volume (Bld) [Entitic vol] 7.8 fL Normal 7-12 [facility] Comment on above: Performed By: #### C BCA ####[facility] ([id number])[address] [place] [address] Platelets (Bld) [#/Vol] 109 10*3/uL Low 150-450 [facility] Comment on above: Performed By: #### C BCA ####[facility] ([id number])5200 [place] [address] RBC COUNT 2.97 X10E12/L Low 3.80-5.20 [facility] Comment on above: Performed By: #### C BCA ####[facility] ([id number])5[address] [place] [address] WBC (Bld) [#/Vol] 11.0 10*3/uL Normal 4.0-11.0 [facility] Comment on above: Performed By: #### C BCA ####[facility] ([id number])5200 [place] [address] 36on 05-12-2024 36 Call from Quique at [facility]. Pt to be discharged from [facility] tomorrow with our service resuming care. [...] Pt is expected to DC 05/13. Normal [facility] BASIC METABOLIC PANLon 05-12 Anion gap [Moles/Vol] 7 mmol/L Normal 5-15 [facility] Comment on above: Performed By: #### B MP, CBCA ####[facility] ([id number])5200 [place] [address] Calcium [Mass/Vol] 9.1 mg/dL Normal 8.5-10.5 [facility] Comment on above: Performed By: #### B MP, CBCA ####[facility] ([id number])5[address] [place] [address] Chloride [Moles/Vol] 106 mmol/L Normal 98-109 [facility] Comment on above: Performed By: #### B MP, CBCA ####[facility] ([id number])5200 [facility] [place] [address] CO2 [Moles/Vol] 27 mmol/L Normal 22-32 [facility] Comment on above: Performed By: #### B OFE ALTAMIRANO ####[facility] ([id number])5200 [facility] [place] [address] Creatinine [Mass/Vol] 0.63 mg/dL Normal 0.40-1.00 [facility] Comment on above: Result Comment: METH OD TRACEABLE TO IDMS STANDARD Performed By: #### B OFE ALTAMIRANO ####[facility] ([id number])5[address] [place] [address] eGFR (CKD-EPI) NON-RACE DEPENDENT >90 Normal >59 [facility] Comment on above: Result Comment: Repo rted eGFR is based on theCKD-EPI 2020 equation that doesnot use a race coefficient. Performed By: #### B OFE ALTAMIRANO ####[facility] ([id number])[address] [place] [address] Glucose [Mass/Vol] 82 mg/dL Normal 65-99 [facility] Comment on above: Performed By: #### B OFE ALTAMIRANO ####[facility] ([id number])5[address] [place] [address] Potassium [Moles/Vol] 3.5 mmol/L Normal 3.5-5.0 [facility] Comment on above: Performed By: #### B OFE ALTAMIRANO ####[facility] ([id number])[address] [place] [address] Sodium [Moles/Vol] 140 mmol/L Normal 134-146 [facility] Comment on above: Performed By: #### B OFE ALTAMIRANO ####[facility] ([id number])[address] [place] [address] Urea nitrogen [Mass/Vol] 14 mg/dL Normal 5-23 [facility] Comment on above: Performed By: #### B OFE ALTAMIRANO ####[facility] ([id number])5200 [facility] [place] [address] BONE MARROWon 05-12-2024 BONE MARROW SEE SEPARATE REPORT, REVIEWED BY PATHOLOGIST Normal [facility] Comment on above: Performed By: #### 6 9052-9, [place] ####[facility] ([id number])2130 [facility], [address] [address]#### EXHR, [id number] ####[facility] ([id number])5200 [place] [address] CBC AND AUTO DIFFon 05-13-19 25 ABSOLUTE BASOPHIL 0.0 X10E9/L Normal 0.0-0.2 [facility] Comment on above: Performed By: #### B MP, CBCA ####[facility] ([id number])5[address] [place] [address] ABSOLUTE NEUTROPHIL 0.9 X10E9/L Low 1.5-6.6 [facility] Comment on above: Performed By: #### B MP, CBCA ####[facility] ([id number])5200 [place] [address] Anisocytosis Ql (Bld) 2+ Abnormal NONE [facility] Comment on above: Performed By: #### B MP, CBCA ####[facility] ([id number])5200 [place] [address] Basophils/100 WBC (Bld) 2.0 % Normal [facility] Comment on above: Performed By: #### B MP, CBCA ####[facility] ([id number])5200 [place] [address] Eosinophils (Bld) [#/Vol] 0.1 10*3/uL Normal 0.0-0.4 [facility] Comment on above: Performed By: #### B MP, CBCA ####[facility] ([id number])5200 [place] [address] Eosinophils/100 WBC (Bld) 5.2 % Normal [facility] Comment on above: Performed By: #### B MP, CBCA ####[facility] ([id number])5200 [facility] [place] [address] Erythrocyte distribution width (RBC) [Ratio] 22.1 % High 11.5-15.0 [facility] Comment on above: Performed By: #### B MP, CBCA ####[facility] ([id number])5200 [place] [address] FRAGMENT 1+ Abnormal NONE [facility] Comment on above: Performed By: #### B MP, CBCA ####[facility] ([id number])5[address] [place] [address] Hematocrit (Bld) [Volume fraction] 25.6 % Low 35-47 [facility] Comment on above: Performed By: #### B MP, CBCA ####[facility] ([id number])5200 [place] [address] Hemoglobin (Bld) [Mass/Vol] 8.7 g/dL Low 11.7-15.5 [facility] Comment on above: Performed By: #### B MP, CBCA ####[facility] ([id number])5200 [place] [address] Lymphocytes (Bld) [#/Vol] 0.6 10*3/uL Low 1.0-3.5 [facility] Comment on above: Performed By: #### B MP, CBCA ####[facility] ([id number])5[address] [place] [address] Lymphocytes/100 WBC (Bld) 29.6 % Normal [facility] Comment on above: Performed By: #### B MP, CBCA ####[facility] ([id number])5200 [facility] [place] [address] MCH (RBC) [Entitic mass] 30.3 pg Normal 27-34 [facility] Comment on above: Performed By: #### B MP, CBCA ####[facility] ([id number])5[address] [place] [address] MCHC (RBC) [Mass/Vol] 34.1 g/dL Normal 32-36 [facility] Comment on above: Performed By: #### B MP, CBCA ####[facility] ([id number])5[address] [place] [address] MCV (RBC) [Entitic vol] 89 fL Normal 80-100 [facility] Comment on above: Performed By: #### B MP, CBCA ####[facility] ([id number])5200 [facility] [place] [address] Monocytes (Bld) [#/Vol] 0.4 10*3/uL Normal 0-0.9 [facility] Comment on above: Performed By: #### B MP, CBCA ####[facility] ([id number])5200 [facility] [place] [address] Monocytes/100 WBC (Bld) 18.4 % Normal [facility] Comment on above: Performed By: #### B MP, CBCA ####[facility] ([id number])5200 [facility] [place] [address] Neutrophils/100 WBC (Bld) 44.8 % Normal [facility] Comment on above: Performed By: #### B MP, CBCA ####[facility] ([id number])5200 [facility] [place] [address] OVALOCYTE 1+ Abnormal NONE [facility] Comment on above: Performed By: #### B MP, CBCA ####[facility] ([id number])5200 [facility] [place] [address] Platelet mean volume (Bld) [Entitic vol] 6.9 fL Low 7-12 [facility] Comment on above: Performed By: #### B MP, CBCA ####[facility] ([id number])5200 [facility] [place] [place] [address] Platelets (Bld) [#/Vol] 97 10*3/uL Low 150-450 [facility] Comment on above: Performed By: #### B MP, CBCA ####[facility] ([id number])5200 [place] [address] RBC COUNT 2.88 X10E12/L Low 3.80-5.20 [facility] Comment on above: Performed By: #### B MP, CBCA ####[facility] ([id number])5200 [place] [address] WBC (Bld) [#/Vol] 2.0 10*3/uL Low 4.0-11.0 [facility] Comment on above: Performed By: #### B MP, CBCA ####[facility] ([id number])5200 [place] [address] DNA and RNA Extract and Hold on 05-12-2024 DNA and RNA Extract and Hold SEE COMMENTS 05/14/2024 04:26 PM Normal [facility] Comment on above: Result Comment: NOTE Test [...] [facility]'s test catalog, please contact [facility] at [phone]. Method summary: DNA and RNA were extracted from the received specimen and stored at -80 C. This test was developed and its performance characteristics determined by [facility] in a manner consistent with CLIA requirements. This test has not been cleared or approved by the U.S. Food and Drug Administration. Test Performed by: [address] [address] Consultant: Colten Sosa Ph.D.; CLIA# [id number] Performed By: #### 6 9052-9, [place] ####[facility] ([id number])[address], [address] [place] [address]#### EXHR, [id number] ####[facility] ([id number])5200 [place] [address] Flow cytometry specialist re view Fredrick (Unsp spec) [Interp]on 05-12-2024 FLOW CYTOMETRY BM SEE SEPARATE REPORT, REVIEWED BY PATHOLOGIST Normal [facility] Comment on above: Performed By: #### 6 9052-9, [place] ####[facility] ([id number])[address], [address] [address]#### EXHR, [id number] ####[facility] ([id number])5200 [place] [address] IR BX AND ASP BONE MARROW SN GL OR MULTon 05-12-2024 IR BX AND ASP BONE MARROW SNGL OR MULT Normal [facility] Karyotype Nom (BM)on 025 CHROMOSOME BONE MARROW SEE COMMENTS 05/20/2024 09:03 AM Normal [facility] Comment on above: Result Comment: NOTE Test [...] testing process was performed at [facility] site [id number], [id number]. Released By Cady Barillas, Ph.D. Test Performed by: [facility] [place] [address]400 Consultant: Colten Sosa Ph.D.; CLIA# [id number] Performed By: #### 6 9052-9, [place] ####[facility] ([id number])2130 [facility], [address] [address]#### [place], [address]-1 ####[facility] ([id number])5200 [place] [address] Laboratory comment Fredrick (Repo rt)on 05-12-2024 UNLISTED LAB TEST Sent to reference lab [facility] Comment on above: Performed By: #### 6 9052-9, [place] ####[facility] ([id number])2130 [facility], [address] [address]#### EX, 15[address]-2 ####[facility] ([id number])5200 [place] [address] BOWMAN GENERIC ORDERon 025 TEST NAME MPNR MYELOPROLIFERATIVE NEOPLASM JAK2 V617F WITH REFLEX TO CALR AND MPL VARIES Normal [facility] TEST RESULT SEE COMMENTS 05/30/2024 10:27 AM [facility] Comment on above: Result Comment: NOTE [...] mutation analysis: Genomic DNA was extracted and [place] sequencing used to evaluate for mutations in MPL, exon 10. The sensitivity of this assay is approximately 20%, such that samples containing lower percentages of mutated DNA will appear negative. Comment: Negative results for PZX4P705V, CALR exon 9, and MPL exon 10 [...] developed and its performance characteristics determined by [facility] in a manner consistent with CLIA requirements. This test has not been cleared or approved by the U.S. Food and Drug Administration. Test Performed by: [facility] - [address] [address] As400 Consultant: Colten Sosa Ph.D.; CLIA# [id number] MYELODYSPLASTIC SYNDROME (MD S),DIAGNOSTIC FISH, VARIESon 05-12-2024 MYELODYSPLASTIC SYNDROME (MDS),DIAGNOSTIC FISH, VARIES SEE COMMENTS 05/27/2024 03:45 PM Normal [facility] Comment on above: Result Comment: NOTE Test Result Flag Unit RefValue MDS, Diagnostic FISH Result Summary Normal Interpretation See Note The result is within normal limits for the MDS FISH panel. Chromosome studies are normal (reported separately). Result Table See Note Abnormality Name Result Abn% Cutoff% inv(3) RPN1/MECOM fusion Normal <4.0 -5q31(S0I248w6,EGR1x1) Normal <12.0 -5(F6P507,EGR1)x1 Normal <10.0 -7q31(D7Z1x2,T3O354b3) Normal <12.0 -7(D7Z1,B9K957)x1 Normal <10.0 +8(D8Z2,MYC)x3 Normal <7.0 -17p13.1(TP53x1,I00Y1b4) Normal <15.0 -17(TP53,D17Z1)x1 Normal <10.0 -20q12(T69V309q8,24egmsq8) Normal <12.0 Result See Note Interphase FISH is normal for all loci studied. Reason for Referral pancytopenia with low IGG Specimen Bone Marrow Method See Note Locus and probes [Strategy;#Nuclei;Vendor] 3q21(RPN1[GATA2]),3q26.2(MECOM) [DFISH;200;LDT] 5p15.2(V8A111),5q31(EGR1) [COPY#;100;AM] 7CEN(D7Z1),7q31(F5R504) [COPY#;100;AM] 8CEN(D8Z2),8q24.1(MYC) [COPY#;100;AM] 17p13(TP53),17CEN(D17Z1) [COPY#;100;AM] 20q12(N93I656),20qter [COPY#;100;AM/C] Probe strategies include: DFISH=dual color, double fusion; COPY#=region gain and loss. Scoring Method: Manual Probe vendors include: LDT = [facility] Developed AM = [employer] ([place], [place]) C = [employer] ([place], [place]) Additional Information See Note A portion of the testing process was performed at [facility] site #[id number]. Disclaimer See Note Applicable to Analyte Specific Reagent (ASR) and Laboratory Developed Tests (LDT). This test was developed and its performance characteristics determined by [facility] in a manner consistent with CLIA requirements. It has not been cleared or approved by the U.S. Food and Drug Administration. This FISH test does not rule out other chromosome abnormalities. Released By Aron Henderson M.D. Test Performed by: [address] [address] As400 Consultant: Colten Sosa Ph.D.; CLIA# [id number] Myeloid Neoplasms, NGSon 03- 13-2025 Additional Notes See Note Normal [facility] Comment on above: Result Comment: NOTE NoneA portion of the testing process was performed at [facility] Polar site [id number], [id number]. Clinical Trials See Note Normal [facility] Comment on above: Result Comment: NOTE Information regarding possible clinical trials for thispatient can be found at the following sites:1). ClinicalTrials.gov:http://clinicaltrials.gov/ct2/search/advanced 2). [facility]:http://www.[place].[facility]/research/clinical-trials3). National Cancer Fred:http://www.cancer.gov/clinicaltrials/search4). The Leukemia and Lymphoma Society's Clinical TrialSupport Centerhttps://www.hematology.org/education/clinicians/clinical-t mdvy-hoeburk-yszsnv Disclaimer See Note Normal [facility] Comment on above: Result Comment: NOTE CLINICAL [...] mutations (clonal cytopenias ofuncertain significance, CCUS) [PMIDs: 98714979, [id number], and [id number]]. Distinction between CHIP or CCUSand a myeloid [...] as very largeinsertion/deletion events, copy number alterations (SHIPPING COORDINATOR)and gene translocation events are not detected by thisassay. Indication for test PANCYTOPENIA Normal [facility] Interpretation See Note Normal [facility] Comment on above: Result Comment: NOTE No pathogenic genetic alteration is detected in the listedgene regions. This finding does not exclude the presence ofa genetic alteration occurring at an allele frequency belowour established detection limit of 2-4%, or other geneticalterations present in untested gene regions. Method Summary See Note Normal [facility] Comment on above: Result Comment: NOTE DNA [...] of NGS panel:Single base substitutions: accuracy >99%; bvhowhchyoomuzh516% (intra- and interassay); sensitivity 2-4% variantallele fraction [...] was developed and its performance characteristicsdetermined by [facility] in a manner consistent with CLBanner Goldfield Medical Centerequirements. This test has not been cleared or approved bythe U.S. Food and Drug Administration. *Some genetic orgenomic alterations such as very large insertion/deletionevents, copy number alterations (SHIPPING COORDINATOR) and genetranslocation events are not detected by this assay. NGSHM Result See Interpretation Normal [facility] OncoHeme Panel Gene List See Note Normal [facility] Comment on above: Result Comment: NOTE ANKRD26 [...] 6-8, IDH2(NM_002168.3) exons 3-4, 6-8, JAK2 (NM_004972.3) iyxie90-87, KDM6A (UTX) (NM_021140.3) exons 1-29, KIT(NM_000222.2) exons [...] report. Path Mutations Detected See Note Normal [facility] Comment on above: Result Comment: NOTE None. See below for Variants of Unknown Significance andAdditional Notes. Please see the section of Panel GeneList below for the complete list of genes tested. Reviewed By See Note Normal [facility] Comment on above: Result Comment: NOTE Signing Pathologist: Mary Morin M.D.Test Performed by:[address] Director: Colten Sosa Ph.D.; CLIA# [id number] Variants of Unknown Significance See Note Normal [facility] Comment on above: Result Comment: NOTE 1) ASXL1: Chr20(GRCh37):g.73591971N>T;NM_015338.5(ASXL1):c.1928G>T; p.Yov357Ywn (53%). Thisalteration is present in the gnomAD population databasewith an overall frequency 0.02%. However, missense changesin ASXL1 are not consistent with bbzs-af-ewiyhhnr mechanismof disease (Roosevelt et al., 2012, [id number]). While thefunction of this variant is not [...] 05-11-2024 Amikacin, Trough, S <0.8 Normal <8.0 [facility] Comment on above: Result Comment: NOTE Test Performed by:[address] Director: Colten Sosa Ph.D.; CLIA# [id number] Performed By: #### 3 321-7 ####[facility] ([id number])5200 [place] [address] BASIC METABOLIC PANLon 05-11 Anion gap [Moles/Vol] 5 mmol/L Normal 5-15 [facility] Comment on above: Performed By: #### C BCA, BMP ####[facility] ([id number])5200 [place] [address] Calcium [Mass/Vol] 8.9 mg/dL Normal 8.5-10.5 [facility] Comment on above: Performed By: #### C BCA, BMP ####[facility] ([id number])5200 [place] [address] Chloride [Moles/Vol] 106 mmol/L Normal 98-109 [facility] Comment on above: Performed By: #### C BCA, BMP ####[facility] ([id number])5200 [place] [address] CO2 [Moles/Vol] 28 mmol/L Normal 22-32 [facility] Comment on above: Performed By: #### C BCA, BMP ####[facility] ([id number])5200 [place] [address] Creatinine [Mass/Vol] 0.60 mg/dL Normal 0.40-1.00 [facility] Comment on above: Result Comment: METH OD TRACEABLE TO IDMS STANDARD Performed By: #### C BCA, BMP ####[facility] ([id number])5200 [place] [address] eGFR (CKD-EPI) NON-RACE DEPENDENT >90 Normal >59 [facility] Comment on above: Result Comment: Repo rted eGFR is based on theCKD-EPI 2020 equation that doesnot use a race coefficient. Performed By: #### C BCA, BMP ####[facility] ([id number])5200 [place] [address] Glucose [Mass/Vol] 84 mg/dL Normal 65-99 [facility] Comment on above: Performed By: #### C BCA, BMP ####[facility] ([id number])5200 [place] [address] Potassium [Moles/Vol] 3.7 mmol/L Normal 3.5-5.0 [facility] Comment on above: Performed By: #### C BCA, BMP ####[facility] ([id number])5200 [place] [address] Sodium [Moles/Vol] 139 mmol/L Normal 134-146 [facility] Comment on above: Performed By: #### C BCA, BMP ####[facility] ([id number])5200 [place] [address] Urea nitrogen [Mass/Vol] 14 mg/dL Normal 5-23 [facility] Comment on above: Performed By: #### C BCA, BMP ####[facility] ([id number])5200 [place] [address] CBC AND AUTO DIFFon 05-12-19 25 ABSOLUTE BASOPHIL 0.0 X10E9/L Normal 0.0-0.2 [facility] Comment on above: Performed By: #### C BCA, BMP ####[facility] ([id number])5200 [facility] [place] [address] ABSOLUTE NEUTROPHIL 0.8 X10E9/L Low 1.5-6.6 [facility] Comment on above: Performed By: #### C BCA, BMP ####[facility] ([id number])5200 [place] [address] Basophils/100 WBC (Bld) 1.7 % Normal [facility] Comment on above: Performed By: #### C BCA, BMP ####[facility] ([id number])5200 [place] [address] Eosinophils (Bld) [#/Vol] 0.1 10*3/uL Normal 0.0-0.4 [facility] Comment on above: Performed By: #### C BCA, BMP ####[facility] ([id number])5200 [place] [address] Eosinophils/100 WBC (Bld) 7.5 % Normal [facility] Comment on above: Performed By: #### C BCA, BMP ####[facility] ([id number])5200 [place] [address] Erythrocyte distribution width (RBC) [Ratio] 21.3 % High 11.5-15.0 [facility] Comment on above: Performed By: #### C BCA, BMP ####[facility] ([id number])5200 [place] [address] Hematocrit (Bld) [Volume fraction] 24.9 % Low 35-47 [facility] Comment on above: Performed By: #### C BCA, BMP ####[facility] ([id number])5200 [facility] [place] [address] Hemoglobin (Bld) [Mass/Vol] 8.5 g/dL Low 11.7-15.5 [facility] Comment on above: Performed By: #### C BCA, BMP ####[facility] ([id number])5200 [facility] [place] [address] Lymphocytes (Bld) [#/Vol] 0.5 10*3/uL Low 1.0-3.5 [facility] Comment on above: Performed By: #### C BCA, BMP ####[facility] ([id number])5200 [facility] [place] [address] Lymphocytes/100 WBC (Bld) 28.8 % Normal [facility] Comment on above: Performed By: #### C BCA, BMP ####[facility] ([id number])5200 [facility] [place] [address] MCH (RBC) [Entitic mass] 30.2 pg Normal 27-34 [facility] Comment on above: Performed By: #### C BCA, BMP ####[facility] ([id number])5200 [facility] [place] [address] MCHC (RBC) [Mass/Vol] 34.2 g/dL Normal 32-36 [facility] Comment on above: Performed By: #### C BCA, BMP ####[facility] ([id number])5200 [facility] [place] [address] MCV (RBC) [Entitic vol] 89 fL Normal 80-100 [facility] Comment on above: Performed By: #### C BCA, BMP ####[facility] ([id number])5200 [facility] [place] [address] Monocytes (Bld) [#/Vol] 0.3 10*3/uL Normal 0-0.9 [facility] Comment on above: Performed By: #### C BCA, BMP ####[facility] ([id number])5200 [facility] [place] [address] Monocytes/100 WBC (Bld) 15.4 % Normal [facility] Comment on above: Performed By: #### C BCA, BMP ####[facility] ([id number])5200 [place] [address] Neutrophils/100 WBC (Bld) 46.6 % Normal [facility] Comment on above: Performed By: #### C LUCIA, BMP ####[facility] ([id number])5200 [place] [address] OVALOCYTE 1+ Abnormal NONE [facility] Comment on above: Performed By: #### C LUCIA, BMP ####[facility] ([id number])5200 [place] [address] Platelet mean volume (Bld) [Entitic vol] 7.0 fL Normal 7-12 [facility] Comment on above: Performed By: #### C LUCIA, BMP ####[facility] ([id number])5200 [place] [address] Platelets (Bld) [#/Vol] 94 10*3/uL Low 150-450 [facility] Comment on above: Performed By: #### C LUCIA, BMP ####[facility] ([id number])5200 [place] [address] RBC COUNT 2.82 X10E12/L Low 3.80-5.20 [facility] Comment on above: Performed By: #### C LUCIA, BMP ####[facility] ([id number])5200 [place] [address] WBC (Bld) [#/Vol] 1.8 10*3/uL Low 4.0-11.0 [facility] Comment on above: Performed By: #### C LUCIA, BMP ####[facility] ([id number])5200 [place] [address] BOWMAN GENERIC ORDERon 025 TEST NAME NAIMA FLOWERKACIN PEAK Normal [facility] Comment on above: Performed By: #### G O ####[facility] ([id number])5200 [place] [address] TEST RESULT SEE COMMENTS 05/12/2024 03:14 PM Abnormal [facility] Comment on above: Result Comment: NOTE Test Result Flag Unit RefValue Amikacin, Peak, S 62.8 H mcg/mL 20.0 - 35.0 Toxic:>40.0 mcg/mL Test Performed by: [place] [address] As400 Consultant: Colten Sosa Ph.D.; CLIA# [id number] Performed By: #### G O ####[facility] ([id number])5200 [place] [address] CBC AND AUTO DIFFon 05-11-19 25 ABSOLUTE BASOPHIL 0.0 X10E9/L Normal 0.0-0.2 [facility] Comment on above: Performed By: #### C BCA ####[facility] ([id number])5200 [place] [address] Band form neutrophils/100 WBC (Bld) 1.0 % Normal [facility] Comment on above: Performed By: #### C BCA ####[facility] ([id number])5200 [place] [address] Basophils/100 WBC (Bld) 1.0 % Normal [facility] Comment on above: Performed By: #### C BCA ####[facility] ([id number])5200 [place] [address] Eosinophils (Bld) [#/Vol] 0.2 10*3/uL Normal 0.0-0.4 [facility] Comment on above: Performed By: #### C BCA ####[facility] ([id number])5200 [place] [address] Eosinophils/100 WBC (Bld) 9.0 % Normal [facility] Comment on above: Performed By: #### C BCA ####[facility] ([id number])5200 [facility] [place] [place] [address] Erythrocyte distribution width (RBC) [Ratio] 21.6 % High 11.5-15.0 [facility] Comment on above: Performed By: #### C BCA ####[facility] ([id number])5200 [place] [address] Hematocrit (Bld) [Volume fraction] 23.4 % Low 35-47 [facility] Comment on above: Performed By: #### C BCA ####[facility] ([id number])5200 [facility] [place] [address] Hemoglobin (Bld) [Mass/Vol] 7.8 g/dL Low 11.7-15.5 [facility] Comment on above: Performed By: #### C BCA ####[facility] ([id number])5200 [facility] [place] [address] HYPOCHROMIA 1+ Abnormal NONE [facility] Comment on above: Performed By: #### C BCA ####[facility] ([id number])5200 [facility] [place] [address] Lymphocytes (Bld) [#/Vol] 0.4 10*3/uL Low 1.0-3.5 [facility] Comment on above: Performed By: #### C BCA ####[facility] ([id number])5200 [facility] [place] [address] Lymphocytes/100 WBC (Bld) 24.0 % Normal [facility] Comment on above: Performed By: #### C BCA ####[facility] ([id number])5200 [facility] [place] [address] MCH (RBC) [Entitic mass] 29.8 pg Normal 27-34 [facility] Comment on above: Performed By: #### C BCA ####[facility] ([id number])5200 [place] [address] MCHC (RBC) [Mass/Vol] 33.4 g/dL Normal 32-36 [facility] Comment on above: Performed By: #### C BCA ####[facility] ([id number])5200 [facility] [place] [address] MCV (RBC) [Entitic vol] 89 fL Normal 80-100 [facility] Comment on above: Performed By: #### C BCA ####[facility] ([id number])5200 [facility] [place] [address] Monocytes (Bld) [#/Vol] 0.2 10*3/uL Normal 0-0.9 [facility] Comment on above: Performed By: #### C BCA ####[facility] ([id number])5200 [facility] [place] [address] Monocytes/100 WBC (Bld) 10.0 % Normal [facility] Comment on above: Performed By: #### C BCA ####[facility] ([id number])5200 [facility] [place] [address] Neutrophils (Bld) [#/Vol] 1.0 10*3/uL Low 1.5-6.6 [facility] Comment on above: Performed By: #### C BCA ####[facility] ([id number])5200 [facility] [place] [address] Platelet mean volume (Bld) [Entitic vol] 6.9 fL Low 7-12 [facility] Comment on above: Performed By: #### C BCA ####[facility] ([id number])5200 [facility] [place] [address] Platelets (Bld) [#/Vol] 81 10*3/uL Low 150-450 [facility] Comment on above: Performed By: #### C BCA ####[facility] ([id number])5200 [facility] [place] [address] POLYCHROMASIA 1+ Abnormal NONE [facility] Comment on above: Performed By: #### C BCA ####[facility] ([id number])5200 [facility] [place] [address] RBC COUNT 2.63 X10E12/L Low 3.80-5.20 [facility] Comment on above: Performed By: #### C BCA ####[facility] ([id number])5200 [place] [address] SEG NEUTROPHIL 55.0 % Normal [facility] Comment on above: Performed By: #### C BCA ####[facility] ([id number])5200 [place] [address] WBC (Bld) [#/Vol] 1.8 10*3/uL Low 4.0-11.0 [facility] Comment on above: Performed By: #### C BCA ####[facility] ([id number])5200 [place] [address] Surgical Pathologyon 025 Surgical Pathology Normal [facility] Comment on above: Result Comment: [facility] [address] [place] [address] Bone Marrow ConsultationPatient Name:IKE FLANNERY:1970 (Age: 53)Gender:FTaken:05/10/2024Reported:05/18/2024Physician(s):Kaye Kulkarni CNP ([phone])Copy To:Baljinder Jones, [facility] Systemession #:[id number]. Rec. #:[id number]: #[id number] Pathologic Diagnosis1, 2). Bone marrow, aspirate, clot [...] antigen acquisition are identified on maturing myeloid cells.[place] on the lymphoid population demonstrates a mixed population of phenotypically unremarkable T-cells, polyclonal B-cells, and natural killer cells, without a detectable monoclonal population. No significant plasma cell population is identified.Immunophenotyping antibodies tested: CD2, CD3, CD4, CD5, CD7, CD8, CD10, CD13, CD16, CD19, CD20, CD23, CD33, CD34, CD38, CD43, CD45, CD56, CD117, CD123, CD138, TRCB1, [place], and Lambda.Immunophenotyping Comment:Immunophenotyping has been used in this diagnostic evaluation. This test was developed and its performance characteristics determined by the [facility] Department. It has not been [...] testing.Electronically Signed OutReece Gross MDInterpretation performed [place] [address], License number: [id number].Clinical HistoryPancytopenia with low IGG.Gross Description1. Received in B+ labeled ALMA DELIA, right iliac crest clot is red-brown clotted hemorrhagic material, 1.1 x 0.4 x 0.2 cm in aggregate. The specimen is entirely submitted in a single cassette. (1, ns, [id number], m6.1) MG2. Received in B+ labeled [place]MA DELIA, right iliac crest core is a buckley-mahmood cylindrical core segment of bone, 2.1 cm in length by 0.2 cm in diameter, admixed with reddish-brown hemorrhagic material aggregating to 0.2 x 0.1 x 0.1 cm. The bone is submitted in cassette A after decalcification in Rapid [employer]. (1, ns, [id number], m6.1) [facility]/05/12/2024SANMicroscopic FindingsANATOMIC SITE: 1. Right Iliac Crest aspirate [...] crest aspirate2: Right iliac crest biopsyFee Codes(s):1; 72751, 72135, 17696, 14081, 704047; 90549, 67240, 24957, 99180 36on 05-09-2024 36 Tia has chiquis admitted at [facility] and followed by Dr Noguera. I gave ok to continue Amikacin at discharge to [facility] as Gino Flower had messaged Catarina here. Normal [facility] Amikacin trough [Mass/Vol]on 05-09-2024 Amikacin, Trough, S 17.7 mcg/mL High <8.0 [facility] Comment on above: Result Comment: NOTE Toxic:>10.0 mcg/mLTest Performed by:[address] Director: Colten Sosa Ph.D.; CLIA# [id number] Performed By: #### G O, 3321-7 ####[facility] ([id number])5200 [place] [address] CBC AND AUTO DIFFon 05-10-19 25 Band form neutrophils/100 WBC (Bld) 2.0 % Normal [facility] Comment on above: Performed By: #### C BCA ####[facility] ([id number])5200 [place] [address] Eosinophils (Bld) [#/Vol] 0.1 10*3/uL Normal 0.0-0.4 [facility] Comment on above: Performed By: #### C BCA ####[facility] ([id number])5200 [place] [address] Eosinophils/100 WBC (Bld) 6.0 % Normal [facility] Comment on above: Performed By: #### C BCA ####[facility] ([id number])5200 [place] [address] Erythrocyte distribution width (RBC) [Ratio] 20.9 % High 11.5-15.0 [facility] Comment on above: Performed By: #### C BCA ####[facility] ([id number])5200 [facility] [place] [address] Hematocrit (Bld) [Volume fraction] 23.8 % Low 35-47 [facility] Comment on above: Performed By: #### C BCA ####[facility] ([id number])5200 [facility] [place] [address] Hemoglobin (Bld) [Mass/Vol] 7.9 g/dL Low 11.7-15.5 [facility] Comment on above: Performed By: #### C BCA ####[facility] ([id number])5200 [facility] [place] [address] Lymphocytes (Bld) [#/Vol] 0.5 10*3/uL Low 1.0-3.5 [facility] Comment on above: Performed By: #### C BCA ####[facility] ([id number])5200 [facility] [place] [address] Lymphocytes/100 WBC (Bld) 27.0 % Normal [facility] Comment on above: Performed By: #### C BCA ####[facility] ([id number])5200 [facility] [place] [address] MCH (RBC) [Entitic mass] 29.6 pg Normal 27-34 [facility] Comment on above: Performed By: #### C BCA ####[facility] ([id number])5200 [place] [address] MCHC (RBC) [Mass/Vol] 33.0 g/dL Normal 32-36 [facility] Comment on above: Performed By: #### C BCA ####[facility] ([id number])5200 [facility] [place] [address] MCV (RBC) [Entitic vol] 90 fL Normal 80-100 [facility] Comment on above: Performed By: #### C BCA ####[facility] ([id number])5200 [facility] [place] [address] Metamyelocytes/100 WBC (Bld) 2.0 % Normal [facility] Comment on above: Performed By: #### C BCA ####[facility] ([id number])5200 [facility] [place] [address] Monocytes (Bld) [#/Vol] 0.3 10*3/uL Normal 0-0.9 [facility] Comment on above: Performed By: #### C BCA ####[facility] ([id number])5200 [facility] [place] [address] Monocytes/100 WBC (Bld) 13.0 % Normal [facility] Comment on above: Performed By: #### C BCA ####[facility] ([id number])5200 [facility] [place] [address] Neutrophils (Bld) [#/Vol] 1.1 10*3/uL Low 1.5-6.6 [facility] Comment on above: Performed By: #### C BCA ####[facility] ([id number])5200 [facility] [place] [address] OVALOCYTE 1+ Abnormal NONE [facility] Comment on above: Performed By: #### C BCA ####[facility] ([id number])5200 [facility] [place] [address] Platelet mean volume (Bld) [Entitic vol] 6.9 fL Low 7-12 [facility] Comment on above: Performed By: #### C BCA ####[facility] ([id number])5200 [facility] [place] [address] Platelets (Bld) [#/Vol] 87 10*3/uL Low 150-450 [facility] Comment on above: Performed By: #### C BCA ####[facility] ([id number])5200 [facility] [place] [address] POLYCHROMASIA 1+ Abnormal NONE [facility] Comment on above: Performed By: #### C BCA ####[facility] ([id number])5200 [facility] [place] [address] RBC COUNT 2.66 X10E12/L Low 3.80-5.20 [facility] Comment on above: Performed By: #### C BCA ####[facility] ([id number])5200 [place] [address] SEG NEUTROPHIL 50.0 % Normal [facility] Comment on above: Performed By: #### C BCA ####[facility] ([id number])5200 [place] [address] WBC (Bld) [#/Vol] 2.0 10*3/uL Low 4.0-11.0 [facility] Comment on above: Performed By: #### C BCA ####[facility] ([id number])5200 [facility] [place] [address] CREATININEon 05-09-2024 Creatinine [Mass/Vol] 0.67 mg/dL Normal 0.40-1.00 [facility] Comment on above: Result Comment: METH OD TRACEABLE TO IDMS STANDARD Performed By: #### F EPR, SPE, 24574-1, 2132-9, SIFE, 2284-8, FLCH ####[facility] ([id number])2[address] [facility] [address] [address]#### LIVR, 4679-7, 2276-4, 79704-0, 2532-0, STORAGE ARCHITECT ####[facility] ([id number])5200 [place] [address] eGFR (CKD-EPI) NON-RACE DEPENDENT >90 Normal >59 [facility] Comment on above: Result Comment: Repo rted eGFR is based on theCKD-EPI 2020 equation that doesnot use a race coefficient. Performed By: #### F EPR, SPE, 39142-7, 2132-9, SIFE, 2284-8, FLCH ####[facility] ([id number])2130 [facility], [address] [place] [address]#### LIVR, 4679-7, 2276-4, 11853-6, 2532-0, STORAGE ARCHITECT ####[facility] ([id number])5200 [place] [address] Clinical Pathology Blood Sme ar Reviewon 05-09-2024 Clinical Pathology Blood Smear Review Normal [facility] Comment on above: Result Comment: [facility] [address] [place] [address] Clinical Pathology ReportPatient Name:IKE FLANNERY:1970 (Age: 53)Gender:FTaken:05/09/2024Reported:05/10/2024Physician(s):Naima Gross MD ([phone])Copy To: Rec. #:[id number]: #[id number] Pathologic DiagnosisPERIPHERAL BLOOD:- Normocytic anemia with increased [...] Electronically Signed Outrxd/05/10/2024Reece Gross MDInter[place] [address], License number: [id number].Clinical NihxtwfT92.890 BLOOD SMEAR EVALUATIONCB (05/09/2024 0628): WBC = 2.0 X10E9/L; HGB = 7.9 g/dL; HCT = 23.8%; MCV = 90 fL; PLT = 87 X10E9/LSpecimen(s) Received Blood Smear ReviewFee Codes(s):1; 70217 FERRITINon 05-09-2024 Ferritin [Mass/Vol] 760 ng/mL High 11-307 [facility] Comment on above: Performed By: #### F EPR, SPE, 33058-6, 9, SIFE, 2284-8, FLCH ####[facility] ([id number])[address] [place] [address], [address] [address]#### LIVR, 4679-7, 2276-4, 20343-7, 2532-0, STORAGE ARCHITECT ####[facility] ([id number])5200 [place] [address] FREE LIGHT CHAINSon 05-10-19 25 FREE JAVIER/LAMBD RATIO 0.66 Normal 0.26-1.65 [facility] Comment on above: Performed By: #### F EPR, SPE, 09915-1, 2131-9, SIFE, 2284-8, FLCH ####[facility] ([id number])[address] [place] [address], [address] [place] [address]#### LIVR, 4679-7, 2276-4, 42452-1, 2532-0, STORAGE ARCHITECT ####[facility] ([id number])5200 [place] [address] FREE KAPPA LT CHAINS 1.22 mg/dL Normal 0.33-1.94 [facility] Comment on above: Performed By: #### F EPR, SPE, 23851-2, 2131-11, SIFE, 2284-8, FLCH ####[facility] ([id number])[address], [address] [address]#### LIVR, 4679-7, 2276-4, 72972-4, 2532-0, STORAGE ARCHITECT ####[facility] ([id number])5200 [place] [address] FREE LAMBDA LT CHAINS 1.85 mg/dL Normal 0.57-2.63 [facility] Comment on above: Performed By: #### F EPR, SPE, 96864-1, 2131-11, SIFE, 4-8, FLCH ####[facility] ([id number])2[address] [facility], [address] [place] [address]#### LIVR, 4679-7, 2276-4, 65339-1, 2532-0, STORAGE ARCHITECT ####[facility] ([id number])5200 [place] [address] Folate [Mass/Vol]on 05-10-19 25 FOLIC ACID 5.2 ng/mL Low >5.8 [facility] Comment on above: Result Comment: NEW REFERENCE RANGE Performed By: #### F EPR, SPE, 15150-7, 9, SIFE, 4-8, FLCH ####[facility] ([id number])2[address] [facility], [address] [address]#### LIVR, 4679-7, 2276-4, 67352-6, 2532-0, STORAGE ARCHITECT ####[facility] ([id number])5200 [place] [address] Haptoglobin Nephelometry [Ma ss/Vol]on 05-09-2024 HAPTOGLOBIN 233 mg/dL High 32-228 [facility] Comment on above: Performed By: #### F EPR, SPE, 38628-8, 2131-9, SIFE, 2284-8, FLCH ####[facility] ([id number])[address], [address] [place] [address]#### LIVR, 4679-7, 2276-4, 95380-6, 2532-0, STORAGE ARCHITECT ####[facility] ([id number])5200 [place] [address] IRON PROFILEon 05-09-2024 Iron [Mass/Vol] 29 ug/dL Low 50-170 [facility] Comment on above: Performed By: #### F EPR, SPE, 23755-9, 9, SIFE, 2284-8, FLCH ####[facility] ([id number])[address], [address] [place] [address]#### LIVR, 4679-7, 2276-4, 10083-7, 2532-0, STORAGE ARCHITECT ####[facility] ([id number])5200 [place] [address] IRON BINDING 225 ug/dL Low 250-425 [facility] Comment on above: Performed By: #### F EPR, SPE, 31333-6, 9, SIFE, 2284-8, FLCH ####[facility] ([id number])[address], [address] [place] [address]#### LIVR, 4679-7, 2276-4, 65401-5, 2532-0, STORAGE ARCHITECT ####[facility] ([id number])5200 [place] [address] IRON SATURATION 13 % SATURATION Low 15-50 [facility] Comment on above: Performed By: #### F EPR, SPE, 99238-4, 9, SIFE, 2284-8, FLCH ####[facility] ([id number])[address], [address] [place] [address]#### LIVR, 4679-7, 2276-4, 32455-6, 2532-0, STORAGE ARCHITECT ####[facility] ([id number])5200 [facility] [place] [address] LDH [Catalytic activity/Vol] on 05-09-2024 LDH 105 U/L Normal 100-235 [facility] Comment on above: Performed By: #### F EPR, SPE, 83999-3, 9, SIFE, 2284-8, FLCH ####[facility] ([id number])[address], [address] [place] [address]#### LIVR, 4679-7, 2276-4, 73469-9, 2532-0, STORAGE ARCHITECT ####[facility] ([id number])5200 [place] [address] LIVER PANELon 05-09-2024 Albumin [Mass/Vol] 3.0 g/dL Low 3.2-5.3 [facility] Comment on above: Performed By: #### F EPR, SPE, 00943-5, 2131-11, SIFE, 2284-8, FLCH ####[facility] ([id number])[address], [address] [place] [address]#### LIVR, 4679-7, 2276-4, 80696-0, 2532-0, STORAGE ARCHITECT ####[facility] ([id number])5200 [place] [address] ALP [Catalytic activity/Vol] 50 U/L Normal 39-130 [facility] Comment on above: Performed By: #### F EPR, SPE, 07048-6, 9, SIFE, 2284-8, FLCH ####[facility] ([id number])[address], [address] [place] [address]#### LIVR, 4679-7, 2276-4, 66629-4, 2532-0, STORAGE ARCHITECT ####[facility] ([id number])5[address] [place] [address] ALT [Catalytic activity/Vol] 11 U/L Normal 0-31 [facility] Comment on above: Performed By: #### F EPR, SPE, 46648-3, 2131-9, SIFE, 2284-8, FLCH ####[facility] ([id number])[address], [address] [place] [address]#### LIVR, 4679-7, 2276-4, 44855-3, 2532-0, STORAGE ARCHITECT ####[facility] ([id number])5200 [place] [address] AST [Catalytic activity/Vol] 12 U/L Normal 0-41 [facility] Comment on above: Performed By: #### F EPR, SPE, 76346-4, 9, SIFE, 2284-8, FLCH ####[facility] ([id number])2[address] [facility], [address] [place] [address]#### LIVR, 4679-7, 2276-4, 49970-5, 2532-0, STORAGE ARCHITECT ####[facility] ([id number])5200 [place] [address] Bilirubin [Mass/Vol] 0.4 mg/dL Normal 0.3-1.2 [facility] Comment on above: Performed By: #### F EPR, SPE, 88602-3, 9, SIFE, 2284-8, FLCH ####[facility] ([id number])2[address] [facility], [address] [place] [address], [place] [address]#### LIVR, 4679-7, 2276-4, 77849-7, 2532-0, STORAGE ARCHITECT ####[facility] ([id number])5200 [place] [address] Bilirubin.direct [Mass/Vol] 0.1 mg/dL Normal 0.0-0.4 [facility] Comment on above: Performed By: #### F EPR, SPE, 21713-5, 2-9, SIFE, 2284-8, FLCH ####[facility] ([id number])[address], [address] [address]#### LIVR, 4679-7, 2276-4, 36462-0, 2532-0, STORAGE ARCHITECT ####[facility] ([id number])5200 [place] [address] Protein [Mass/Vol] 5.0 g/dL Low 6.0-8.0 [facility] Comment on above: Performed By: #### F EPR, SPE, 52582-6, 2131-9, SIFE, 2284-8, FLCH ####[facility] ([id number])2[address] [facility], [address] [place] [address]#### LIVR, 4679-7, 2276-4, 96554-3, 2532-0, STORAGE ARCHITECT ####[facility] ([id number])5200 [facility] [place] [address] BOWMAN GENERIC ORDERon 025 TEST NAME QUIQUEOSMAR AMIKACIN PEAK RNOGEL SERUM Normal [facility] Comment on above: Performed By: #### G O, 3321-7 ####[facility] ([id number])5200 [facility] [place] [address] TEST RESULT SEE COMMENTS 05/10/2024 01:58 PM Abnormal [facility] Comment on above: Result Comment: NOTE Test Result Flag Unit RefValue Amikacin, Peak, S 17.4 L mcg/mL 20.0 - 35.0 Test Performed by: [address] [place] [address]400 Consultant: Colten Sosa Ph.D.; CLIA# [id number] Performed By: #### G Juan, 3321-7 ####[facility] ([id number])2445 [place] [id number] Pathologist review Pathologi st comment (Bld) [Interp]on 05-09-2024 STAFF REVIEW NOTE Normal [facility] Comment on above: Result Comment: [facility] [address] [place] [address] Clinical Pathology ReportPatient Name:IKE FLANNERY:1970 (Age:53)Gender:FTaken:05/09/2024Reported:05/10/2024Physician(s):Marlon Gross MD ([phone])Copy To: Rec.#:[id number]: #[id number] Pathologic DiagnosisPERIPHERAL BLOOD:- Normocytic anemia with increased [...] Electronically Signed Outrxd/05/10/2024Reece Gross MDInter[place] [address], License number: [id number].Clinical WrnowvsK81.890 BLOOD SMEAR [facility] (05/09/2024 0628): WBC = 2.0 X10E9/L; HGB = 7.9 g/dL; HCT =23.8%; MCV = 90 fL; PLT = 87 X10E9/LSpecimen(s) ReceivedBlood Smear ReviewFee Codes(s):1; 92597 Performed By: #### F EPR, SPE, 29487-8, 2131-11, SIFE, 2284-8, FLCH ####[facility] ([id number])[address] [place] [address], [place] [address]#### LIVR, 4679-7, 2276-4, 40974-9, 2532-0, STORAGE ARCHITECT ####[facility] ([id number])5200 [place] [address] Reticulocytes/100 RBC (Bld)o n 05-09-2024 RETICULOCYTE COUNT 2.5 % High 0.4-2.2 [facility] Comment on above: Performed By: #### F EPR, SPE, 31372-7, 9, SIFE, 2284-8, FLCH ####[facility] ([id number])[address] [place] [address], [address] [address]#### LIVR, 4679-7, 2276-4, 31659-4, 2532-0, STORAGE ARCHITECT ####[facility] ([id number])5200 [place] [address] SERUM IMMUNOFIXATIONon 05-09 IgA [Mass/Vol] 70 mg/dL Normal 68-378 [facility] Comment on above: Performed By: #### F EPR, SPE, 41717-6, 9, SIFE, 2284-8, FLCH ####[facility] ([id number])[address], [address] [place] [address]#### LIVR, 4679-7, 2276-4, 83676-2, 2532-0, STORAGE ARCHITECT ####[facility] ([id number])5200 [place] [address] IgG [Mass/Vol] 337 mg/dL Low 635-1741 [facility] Comment on above: Performed By: #### F EPR, SPE, 76698-4, 2131-9, SIFE, 2284-8, FLCH ####[facility] ([id number])[address], [address] [place] [address]#### LIVR, 4679-7, 2276-4, 34815-9, 2532-0, STORAGE ARCHITECT ####[facility] ([id number])5200 [place] [address] IgM [Mass/Vol] 23 mg/dL Low 45-281 [facility] Comment on above: Performed By: #### F EPR, SPE, 87768-8, 9, SIFE, 4-8, FLCH ####[facility] ([id number])[address], [address] [place] [address]#### LIVR, 4679-7, 2276-4, 98388-2, 2532-0, STORAGE ARCHITECT ####[facility] ([id number])5200 [place] [address] IMMUNE PROFILE INTERP Unremarkable patte rn and quantitation, no monoclonal bands. Normal [facility] Comment on above: Performed By: #### F EPR, SPE, 51805-8, 2131-9, SIFE, 2284-8, FLCH ####[facility] ([id number])[address], [address] [place] [address]#### LIVR, 4679-7, 2276-4, 43126-5, 2532-0, STORAGE ARCHITECT ####[facility] ([id number])5200 [place] [address] SERUM PROTEIN ELECTROPHORESI Son 05-09-2024 Albumin [Mass/Vol] 2.5 g/dL Low 3.4-5.3 [facility] Comment on above: Performed By: #### F EPR, SPE, 83203-1, 2131-9, SIFE, 2284-8, FLCH ####[facility] ([id number])[address], [address] [address]#### LIVR, 4679-7, 2276-4, 94342-8, 2532-0, STORAGE ARCHITECT ####[facility] ([id number])5200 [place] [address] ALPHA 1 GLOBULIN 0.4 g/dL Normal 0.1-0.4 [facility] Comment on above: Performed By: #### F EPR, SPE, 75926-9, 9, SIFE, 2284-8, FLCH ####[facility] ([id number])[address], [address] [place] [address]#### LIVR, 4679-7, 2276-4, 79305-9, 2532-0, STORAGE ARCHITECT ####[facility] ([id number])5200 [place] [address] ALPHA 2 GLOBULIN 0.6 g/dL Normal 0.4-1.1 [facility] Comment on above: Performed By: #### F EPR, SPE, 35020-9, 9, SIFE, 2284-8, FLCH ####[facility] ([id number])[address], [address] [place] [address]#### LIVR, 4679-7, 2276-4, 18201-1, 2532-0, STORAGE ARCHITECT ####[facility] ([id number])5200 [place] [address] BETA GLOBULIN 0.6 g/dL Normal 0.5-1.2 [facility] Comment on above: Performed By: #### F EPR, SPE, 95984-0, 9, SIFE, 2284-8, FLCH ####[facility] ([id number])[address], [address] [place] [address]#### LIVR, 4679-7, 2276-4, 36661-2, 2532-0, STORAGE ARCHITECT ####[facility] ([id number])[address] [place] [address] GAMMA GLOBULIN 0.3 g/dL Low 0.5-1.6 [facility] Comment on above: Performed By: #### F EPR, SPE, 80539-4, 2131-11, SIFE, 4-8, FLCH ####[facility] ([id number])[address], [address] [place] [address]#### LIVR, 4679-7, 2276-4, 58738-5, 2532-0, STORAGE ARCHITECT ####[facility] ([id number])[address] [place] [address] PROT. ELECTROPHORESIS INTERP Unremarkable protein distribution, no monoclonal bands. Normal [facility] Comment on above: Performed By: #### F EPR, SPE, 20835-0, 9, SIFE, 2284-8, FLCH ####[facility] ([id number])[address], [address] [place] [address]#### LIVR, 4679-7, 2276-4, 90371-4, 2532-0, STORAGE ARCHITECT ####[facility] ([id number])[address] [place] [address] Protein [Mass/Vol] 4.4 g/dL Low 6.0-8.0 [facility] Comment on above: Performed By: #### F EPR, SPE, 61147-4, 9, SIFE, 2284-8, FLCH ####[facility] ([id number])[address] [place] [address], [address] [place] [address]#### LIVR, 4679-7, 2276-4, 56405-6, 2532-0, STORAGE ARCHITECT ####[facility] ([id number])[address] [place] [address] VITAMIN B12on 05-09-2024 Cobalamin (Vitamin B12) [Mass/Vol] 1264 pg/mL High 180-914 [facility] Comment on above: Performed By: #### F EPR, SPE, 65198-7, 2132-9, SIFE, 2284-8, FLCH ####[facility] ([id number])[address] [place] [address], [address] [place] [address]#### LIVR, 4679-7, 2276-4, 42828-7, 2532-0, STORAGE ARCHITECT ####[facility] ([id number])[address] [place] [address] CBC AND AUTO DIFFon 05-09-19 25 ABSOLUTE BASOPHIL 0.0 X10E9/L Normal 0.0-0.2 [facility] Comment on above: Performed By: #### C BCA ####[facility] ([id number])[address] [place] [address] ABSOLUTE NEUTROPHIL 1.2 X10E9/L Low 1.5-6.6 [facility] Comment on above: Performed By: #### C BCA ####[facility] ([id number])[address] [place] [address] Basophils/100 WBC (Bld) 0.6 % Normal [facility] Comment on above: Performed By: #### C BCA ####[facility] ([id number])[address] [place] [address] Eosinophils (Bld) [#/Vol] 0.2 10*3/uL Normal 0.0-0.4 [facility] Comment on above: Performed By: #### C BCA ####[facility] ([id number])[address] [place] [address] Eosinophils/100 WBC (Bld) 8.7 % Normal [facility] Comment on above: Performed By: #### C BCA ####[facility] ([id number])[address] [place] [address] Erythrocyte distribution width (RBC) [Ratio] 21.2 % High 11.5-15.0 [facility] Comment on above: Performed By: #### C BCA ####[facility] ([id number])[address] [facility] [place] [address] FRAGMENT 1+ Abnormal NONE [facility] Comment on above: Performed By: #### C BCA ####[facility] ([id number])[address] [facility] [place] [address] Hematocrit (Bld) [Volume fraction] 26.0 % Low 35-47 [facility] Comment on above: Performed By: #### C BCA ####[facility] ([id number])[address] [facility] [place] [address] Hemoglobin (Bld) [Mass/Vol] 8.8 g/dL Low 11.7-15.5 [facility] Comment on above: Performed By: #### C BCA ####[facility] ([id number])5[address] [place] [address] Lymphocytes (Bld) [#/Vol] 0.6 10*3/uL Low 1.0-3.5 [facility] Comment on above: Performed By: #### C BCA ####[facility] ([id number])5200 [facility] [place] [address] Lymphocytes/100 WBC (Bld) 27.4 % Normal [facility] Comment on above: Performed By: #### C BCA ####[facility] ([id number])5[address] [place] [address] MCH (RBC) [Entitic mass] 30.1 pg Normal 27-34 [facility] Comment on above: Performed By: #### C BCA ####[facility] ([id number])5200 [place] [address] MCHC (RBC) [Mass/Vol] 33.9 g/dL Normal 32-36 [facility] Comment on above: Performed By: #### C BCA ####[facility] ([id number])5200 [place] [address] MCV (RBC) [Entitic vol] 89 fL Normal 80-100 [facility] Comment on above: Performed By: #### C BCA ####[facility] ([id number])5200 [facility] [place] [address] Monocytes (Bld) [#/Vol] 0.3 10*3/uL Normal 0-0.9 [facility] Comment on above: Performed By: #### C BCA ####[facility] ([id number])5200 [facility] [place] [address] Monocytes/100 WBC (Bld) 12.8 % Normal [facility] Comment on above: Performed By: #### C BCA ####[facility] ([id number])5200 [facility] [place] [address] Neutrophils/100 WBC (Bld) 50.5 % Normal [facility] Comment on above: Performed By: #### C BCA ####[facility] ([id number])5200 [facility] [place] [address] Platelet mean volume (Bld) [Entitic vol] 7.1 fL Normal 7-12 [facility] Comment on above: Performed By: #### C BCA ####[facility] ([id number])5200 [facility] [place] [address] Platelets (Bld) [#/Vol] 103 10*3/uL Low 150-450 [facility] Comment on above: Performed By: #### C BCA ####[facility] ([id number])5200 [facility] [place] [address] RBC COUNT 2.92 X10E12/L Low 3.80-5.20 [facility] Comment on above: Performed By: #### C BCA ####[facility] ([id number])5200 [facility] [place] [address] WBC (Bld) [#/Vol] 2.3 10*3/uL Low 4.0-11.0 [facility] Comment on above: Performed By: #### C BCA ####[facility] ([id number])5200 [place] [address] CBC AND AUTO DIFFon 05-08-19 25 Eosinophils (Bld) [#/Vol] 0.1 10*3/uL Normal 0.0-0.4 [facility] Comment on above: Performed By: #### C BCA ####[facility] ([id number])5200 [place] [address] Eosinophils/100 WBC (Bld) 7.0 % Normal [facility] Comment on above: Performed By: #### C BCA ####[facility] ([id number])5200 [place] [address] Erythrocyte distribution width (RBC) [Ratio] 20.7 % High 11.5-15.0 [facility] Comment on above: Performed By: #### C BCA ####[facility] ([id number])5200 [place] [address] FRAGMENT 1+ Abnormal NONE [facility] Comment on above: Performed By: #### C BCA ####[facility] ([id number])5[address] [place] [address] Hematocrit (Bld) [Volume fraction] 23.7 % Low 35-47 [facility] Comment on above: Performed By: #### C BCA ####[facility] ([id number])5200 [place] [address] Hemoglobin (Bld) [Mass/Vol] 8.0 g/dL Low 11.7-15.5 [facility] Comment on above: Performed By: #### C BCA ####[facility] ([id number])5200 [facility] [place] [address] Lymphocytes (Bld) [#/Vol] 0.6 10*3/uL Low 1.0-3.5 [facility] Comment on above: Performed By: #### C BCA ####[facility] ([id number])5200 [facility] [place] [address] Lymphocytes/100 WBC (Bld) 30.0 % Normal [facility] Comment on above: Performed By: #### C BCA ####[facility] ([id number])5200 [facility] [place] [address] MCH (RBC) [Entitic mass] 29.9 pg Normal 27-34 [facility] Comment on above: Performed By: #### C BCA ####[facility] ([id number])5200 [facility] [place] [address] MCHC (RBC) [Mass/Vol] 33.8 g/dL Normal 32-36 [facility] Comment on above: Performed By: #### C BCA ####[facility] ([id number])5200 [facility] [place] [address] MCV (RBC) [Entitic vol] 88 fL Normal 80-100 [facility] Comment on above: Performed By: #### C BCA ####[facility] ([id number])5200 [facility] [place] [address] Monocytes (Bld) [#/Vol] 0.2 10*3/uL Normal 0-0.9 [facility] Comment on above: Performed By: #### C BCA ####[facility] ([id number])5200 [facility] [place] [address] Monocytes/100 WBC (Bld) 9.0 % Normal [facility] Comment on above: Performed By: #### C BCA ####[facility] ([id number])5200 [facility] [place] [address] Neutrophils (Bld) [#/Vol] 1.2 10*3/uL Low 1.5-6.6 [facility] Comment on above: Performed By: #### C BCA ####[facility] ([id number])5200 [facility] [place] [address] Platelet mean volume (Bld) [Entitic vol] 7.3 fL Normal 7-12 [facility] Comment on above: Performed By: #### C BCA ####[facility] ([id number])5200 [place] [address] Platelets (Bld) [#/Vol] 101 10*3/uL Low 150-450 [facility] Comment on above: Performed By: #### C BCA ####[facility] ([id number])5200 [place] [address] RBC COUNT 2.68 X10E12/L Low 3.80-5.20 [facility] Comment on above: Performed By: #### C BCA ####[facility] ([id number])5200 [place] [address] SEG NEUTROPHIL 54.0 % Normal [facility] Comment on above: Performed By: #### C BCA ####[facility] ([id number])5200 [place] [address] TEARDROP 1+ Abnormal NONE [facility] Comment on above: Performed By: #### C BCA ####[facility] ([id number])5200 [place] [address] WBC (Bld) [#/Vol] 2.1 10*3/uL Low 4.0-11.0 [facility] Comment on above: Performed By: #### C BCA ####[facility] ([id number])5200 [facility] [place] [address] 36on 05-06-2024 36 RN called to request most recent labs be faxed to [facility] ID. Fax number confirmed Normal [facility] BASIC METABOLIC PANLon 05-06 Anion gap [Moles/Vol] 3 mmol/L Low 5-15 [facility] Comment on above: Performed By: #### C BCA, BMP ####[facility] ([id number])5200 [facility] [place] [address] Calcium [Mass/Vol] 8.8 mg/dL Normal 8.5-10.5 [facility] Comment on above: Performed By: #### C BCA, BMP ####[facility] ([id number])5200 [facility] [place] [address] Chloride [Moles/Vol] 105 mmol/L Normal 98-109 [facility] Comment on above: Performed By: #### C BCA, BMP ####[facility] ([id number])5200 [facility] [place] [address] CO2 [Moles/Vol] 29 mmol/L Normal 22-32 [facility] Comment on above: Performed By: #### C BCA, BMP ####[facility] ([id number])5200 [place] [address] Creatinine [Mass/Vol] 0.67 mg/dL Normal 0.40-1.00 [facility] Comment on above: Result Comment: METH OD TRACEABLE TO IDMS STANDARD Performed By: #### C BCA, BMP ####[facility] ([id number])5200 [facility] [place] [address] eGFR (CKD-EPI) NON-RACE DEPENDENT >90 Normal >59 [facility] Comment on above: Result Comment: Repo rted eGFR is based on theCKD-EPI 2020 equation that doesnot use a race coefficient. Performed By: #### C BCA, BMP ####[facility] ([id number])5200 [facility] [place] [address] Glucose [Mass/Vol] 97 mg/dL Normal 65-99 [facility] Comment on above: Performed By: #### C BCA, BMP ####[facility] ([id number])5200 [facility] [place] [address] Potassium [Moles/Vol] 3.8 mmol/L Normal 3.5-5.0 [facility] Comment on above: Performed By: #### C BCA, BMP ####[facility] ([id number])5200 [facility] [place] [address] Sodium [Moles/Vol] 137 mmol/L Normal 134-146 [facility] Comment on above: Performed By: #### C BCA, BMP ####[facility] ([id number])5200 [place] [address] Urea nitrogen [Mass/Vol] 19 mg/dL Normal 5-23 [facility] Comment on above: Performed By: #### C BCA, BMP ####[facility] ([id number])5200 [place] [address] CBC AND AUTO DIFFon 05-07-19 25 ABSOLUTE BASOPHIL 0.0 X10E9/L Normal 0.0-0.2 [facility] Comment on above: Performed By: #### C BCA, BMP ####[facility] ([id number])5200 [place] [address] ABSOLUTE NEUTROPHIL 1.4 X10E9/L Low 1.5-6.6 [facility] Comment on above: Performed By: #### C BCA, BMP ####[facility] ([id number])5200 [place] [address] Basophils/100 WBC (Bld) 0.6 % Normal [facility] Comment on above: Performed By: #### C BCA, BMP ####[facility] ([id number])5200 [place] [address] Eosinophils (Bld) [#/Vol] 0.2 10*3/uL Normal 0.0-0.4 [facility] Comment on above: Performed By: #### C BCA, BMP ####[facility] ([id number])5200 [place] [address] Eosinophils/100 WBC (Bld) 7.6 % Normal [facility] Comment on above: Performed By: #### C BCA, BMP ####[facility] ([id number])5200 [facility] [address] Erythrocyte distribution width (RBC) [Ratio] 20.4 % High 11.5-15.0 [facility] Comment on above: Performed By: #### C BCA, BMP ####[facility] ([id number])5200 [facility] [place] [address] FRAGMENT 1+ Abnormal NONE [facility] Comment on above: Performed By: #### C BCA, BMP ####[facility] ([id number])5200 [facility] [place] [address] Hematocrit (Bld) [Volume fraction] 20.3 % Low 35-47 [facility] Comment on above: Performed By: #### C BCA, BMP ####[facility] ([id number])5200 [facility] [place] [address] Hemoglobin (Bld) [Mass/Vol] 6.9 g/dL Critically low 11.7-15.5 [facility] Comment on above: Performed By: #### C BCA, BMP ####[facility] ([id number])5200 [facility] [place] [address] Lymphocytes (Bld) [#/Vol] 0.5 10*3/uL Low 1.0-3.5 [facility] Comment on above: Performed By: #### C BCA, BMP ####[facility] ([id number])5200 [facility] [place] [address] Lymphocytes/100 WBC (Bld) 22.8 % Normal [facility] Comment on above: Performed By: #### C BCA, BMP ####[facility] ([id number])5200 [facility] [place] [address] MCH (RBC) [Entitic mass] 30.4 pg Normal 27-34 [facility] Comment on above: Performed By: #### C BCA, BMP ####[facility] ([id number])5200 [facility] [place] [address] MCHC (RBC) [Mass/Vol] 34.1 g/dL Normal 32-36 [facility] Comment on above: Performed By: #### C LUCIA, BMP ####[facility] ([id number])5200 [facility] [place] [address] MCV (RBC) [Entitic vol] 89 fL Normal 80-100 [facility] Comment on above: Performed By: #### C LUCIA, BMP ####[facility] ([id number])5200 [place] [address] Monocytes (Bld) [#/Vol] 0.2 10*3/uL Normal 0-0.9 [facility] Comment on above: Performed By: #### C LUCIA, BMP ####[facility] ([id number])5200 [place] [address] Monocytes/100 WBC (Bld) 7.8 % Normal [facility] Comment on above: Performed By: #### C LUCIA, BMP ####[facility] ([id number])5200 [place] [address] Neutrophils/100 WBC (Bld) 61.2 % Normal [facility] Comment on above: Performed By: #### C LUCIA, BMP ####[facility] ([id number])5200 [place] [address] OVALOCYTE 1+ Abnormal NONE [facility] Comment on above: Performed By: #### C LUCIA, BMP ####[facility] ([id number])5200 [place] [address] Platelet mean volume (Bld) [Entitic vol] 7.1 fL Normal 7-12 [facility] Comment on above: Performed By: #### C LUCIA, BMP ####[facility] ([id number])5200 [facility] [place] [address] Platelets (Bld) [#/Vol] 108 10*3/uL Low 150-450 [facility] Comment on above: Performed By: #### C LUCIA, BMP ####[facility] ([id number])5200 [facility] [place] [address] RBC COUNT 2.27 X10E12/L Low 3.80-5.20 [facility] Comment on above: Performed By: #### C BCA, BMP ####[facility] ([id number])5200 [facility] [place] [address] WBC (Bld) [#/Vol] 2.3 10*3/uL Low 4.0-11.0 [facility] Comment on above: Performed By: #### C BCA, BMP ####[facility] ([id number])5200 [facility] [place] [address] HGBon 05-06-2024 Hematocrit (Bld) [Volume fraction] 25.9 % Low 35-47 [facility] Comment on above: Performed By: #### H H ####[facility] ([id number])5200 [facility] [place] [address] Hemoglobin (Bld) [Mass/Vol] 8.7 g/dL Low 11.7-15.5 [facility] Comment on above: Performed By: #### H H ####[facility] ([id number])5200 [facility] [place] [address] BASIC METABOLIC PANLon 05-05 Anion gap [Moles/Vol] 3 mmol/L Low 5-15 [facility] Comment on above: Performed By: #### B MP, CBC ####[facility] ([id number])5200 [facility] [place] [address] Calcium [Mass/Vol] 8.5 mg/dL Normal 8.5-10.5 [facility] Comment on above: Performed By: #### B MP, CBC ####[facility] ([id number])5200 [facility] [place] [address] Chloride [Moles/Vol] 104 mmol/L Normal 98-109 [facility] Comment on above: Performed By: #### B MP, CBC ####[facility] ([id number])5200 [facility] [place] [address] CO2 [Moles/Vol] 27 mmol/L Normal 22-32 [facility] Comment on above: Performed By: #### B MP, CBC ####[facility] ([id number])5200 [facility] [place] [address] Creatinine [Mass/Vol] 0.84 mg/dL Normal 0.40-1.00 [facility] Comment on above: Result Comment: METH OD TRACEABLE TO IDMS STANDARD Performed By: #### B MP, CBC ####[facility] ([id number])5200 [place] [address] GFR/1.73 sq M.predicted among non-blacks MDRD (S/P/Bld) [Vol rate/Area] 83 mL/min/{1.73_m2} Normal >59 [facility] Comment on above: Result Comment: Repo rted eGFR is based on theCKD-EPI 2020 equation that doesnot use a race coefficient. Performed By: #### B MP, CBC ####[facility] ([id number])5200 [place] [address] Glucose [Mass/Vol] 95 mg/dL Normal 65-99 [facility] Comment on above: Performed By: #### B MP, CBC ####[facility] ([id number])5200 [facility] [place] [address] Potassium [Moles/Vol] 4.1 mmol/L Normal 3.5-5.0 [facility] Comment on above: Performed By: #### B MP, CBC ####[facility] ([id number])5[address] [place] [address] Sodium [Moles/Vol] 134 mmol/L Normal 134-146 [facility] Comment on above: Performed By: #### B MP, CBC ####[facility] ([id number])5[address] [place] [address] Urea nitrogen [Mass/Vol] 21 mg/dL Normal 5-23 [facility] Comment on above: Performed By: #### B MP, CBC ####[facility] ([id number])5200 [facility] [place] [address] COMPLETE BLOOD COUNTon 05-05 Erythrocyte distribution width (RBC) [Ratio] 23.3 % High 11.5-15.0 [facility] Comment on above: Performed By: #### B MP, CBC ####[facility] ([id number])5[address] [place] [address] Hematocrit (Bld) [Volume fraction] 19.0 % Low 35-47 [facility] Comment on above: Performed By: #### B MP, CBC ####[facility] ([id number])5200 [facility] [place] [address] Hemoglobin (Bld) [Mass/Vol] 6.3 g/dL Critically low 11.7-15.5 [facility] Comment on above: Performed By: #### B MP, CBC ####[facility] ([id number])5[address] [place] [address] MCH (RBC) [Entitic mass] 29.5 pg Normal 27-34 [facility] Comment on above: Performed By: #### B MP, CBC ####[facility] ([id number])5200 [facility] [place] [address] MCHC (RBC) [Mass/Vol] 33.5 g/dL Normal 32-36 [facility] Comment on above: Performed By: #### B MP, CBC ####[facility] ([id number])5[address] [place] [address] MCV (RBC) [Entitic vol] 88 fL Normal 80-100 [facility] Comment on above: Performed By: #### B MP, CBC ####[facility] ([id number])5200 [facility] [place] [address] Platelet mean volume (Bld) [Entitic vol] 6.9 fL Low 7-12 [facility] Comment on above: Performed By: #### B MP, CBC ####[facility] ([id number])5200 [facility] [place] [address] Platelets (Bld) [#/Vol] 119 10*3/uL Low 150-450 [facility] Comment on above: Performed By: #### B MP, CBC ####[facility] ([id number])5200 [place] [address] RBC COUNT 2.15 X10E12/L Low 3.80-5.20 [facility] Comment on above: Performed By: #### B MP, CBC ####[facility] ([id number])5200 [place] [address] WBC (Bld) [#/Vol] 3.1 10*3/uL Low 4.0-11.0 [facility] Comment on above: Performed By: #### B MP, CBC ####[facility] ([id number])5200 [place] [address] HGBon 05-05-2024 Hematocrit (Bld) [Volume fraction] 21.5 % Low 35-47 [facility] Comment on above: Performed By: #### H H ####[facility] ([id number])5200 [place] [address] Hemoglobin (Bld) [Mass/Vol] 7.4 g/dL Low 11.7-15.5 [facility] Comment on above: Performed By: #### H H ####[facility] ([id number])5200 [place] [address] ANAEROBE CULTUREon 5 Bacteria identified Anaer cx Nom (Unsp spec) SPECIMEN NOTES SPEC A CULTURE RESULTS NO GROWTH 5 DAYS Normal [facility] Comment on above: Performed By: #### 6 35-3 ####[facility] ([id number])[address] [facility], [place] [address] Bacteria identified Anaer cx Nom (Unsp spec) SPECIMEN NOTES SPEC D CULTURE RESULTS NO GROWTH 5 DAYS Normal [facility] Comment on above: Performed By: #### 6 35-3 ####[facility] ([id number])[address], [place] [address] Bacteria identified Anaer cx Nom (Unsp spec) SPECIMEN NOTES SPEC B CULTURE RESULTS NO GROWTH 5 DAYS Normal [facility] Comment on above: Performed By: #### 6 35-3 ####[facility] ([id number])[address], [address], [place] [address] Bacteria identified Anaer cx Nom (Unsp spec) SPECIMEN NOTES SPEC C CULTURE RESULTS NO GROWTH 5 DAYS Normal [facility] Comment on above: Performed By: #### 6 35-3 ####[facility] ([id number])[address], [place] [address] Amikacin trough [Mass/Vol]on 05-04-2024 Amikacin, Trough, S <0.8 Normal <8.0 [facility] Comment on above: Result Comment: NOTE Test Performed by:[address] Director: Colten Sosa Ph.D.; CLIA# [id number] Performed By: #### 3 321-7 ####[facility] ([id number])[address] [place] [address] FUNGAL CULTUREon 05-04-2024 Fungus identified Cx Nom (Unsp spec) SPECIMEN NOTES SPEC D FUNGAL SMEAR NO FUNGAL ELEMENTS SEEN ON DIRECT SMEAR CULTURE RESULTS Mycobacterium Abscessus FOR SUSCEPTIBILITY, SEE PREVIOUS REPORT. [facility] Comment on above: Performed By: #### 5 80-1 ####[facility] ([id number])[address], [place] [address] Fungus identified Cx Nom (Unsp spec) SPECIMEN NOTES SPEC B FUNGAL SMEAR NO FUNGAL ELEMENTS SEEN ON DIRECT SMEAR CULTURE RESULTS Mycobacterium Abscessus FOR SUSCEPTIBILITY, SEE PREVIOUS REPORT. [facility] Comment on above: Performed By: #### 5 80-1 ####[facility] ([id number])[address], [address] [address] Fungus identified Cx Nom (Unsp spec) SPECIMEN NOTES SPEC A FUNGAL SMEAR NO FUNGAL ELEMENTS SEEN ON DIRECT SMEAR CULTURE RESULTS Mycobacterium Abscessus FOR SUSCEPTIBILITY, SEE PREVIOUS REPORT. [facility] Comment on above: Performed By: #### 5 80-1 ####[facility] ([id number])[address], [address] [address] Fungus identified Cx Nom (Unsp spec) SPECIMEN NOTES SPEC C FUNGAL SMEAR NO FUNGAL ELEMENTS SEEN ON DIRECT SMEAR CULTURE RESULTS Mycobacterium Abscessus FOR SUSCEPTIBILITY, SEE PREVIOUS REPORT. [facility] Comment on above: Performed By: #### 5 80-1 ####[facility] ([id number])[address], [address] [address] TISSUE CULTUREon 05-04-2024 Bacteria identified Aer cx Nom (Tiss) SPECIMEN NOTES SPEC C GRAM STAIN 0 WHITE BLOOD CELLS/LPF 0 SQUAMOUS EPITHELIAL CELLS/LPF NO ORGANISMS SEEN CULTURE RESULTS NO GROWTH 7 DAYS [facility] Comment on above: Performed By: #### 6 27-0 ####[facility] ([id number])[address] [address] [address] Bacteria identified Aer cx Nom (Tiss) SPECIMEN NOTES SPEC B GRAM STAIN 0 WHITE BLOOD CELLS/LPF 0 SQUAMOUS EPITHELIAL CELLS/LPF NO ORGANISMS SEEN CULTURE RESULTS NO GROWTH 7 DAYS [facility] Comment on above: Performed By: #### 6 27-0 ####[facility] ([id number])[address], [address] [address] Bacteria identified Aer cx Nom (Tiss) SPECIMEN NOTES SPEC A GRAM STAIN 0 WHITE BLOOD CELLS/LPF 0 SQUAMOUS EPITHELIAL CELLS/LPF NO ORGANISMS SEEN CULTURE RESULTS NO GROWTH 7 DAYS Normal [facility] Comment on above: Performed By: #### 6 27-0 ####[facility] ([id number])[address], [address] [address] Bacteria identified Aer cx Nom (Tiss) SPECIMEN NOTES SPEC D GRAM STAIN 0 WHITE BLOOD CELLS/LPF 0 SQUAMOUS EPITHELIAL CELLS/LPF NO ORGANISMS SEEN CULTURE RESULTS NO GROWTH 7 DAYS Normal [facility] Comment on above: Performed By: #### 6 27-0 ####[facility] ([id number])[address], [address] [place] [address] BASIC METABOLIC PANLon 05-03 Anion gap [Moles/Vol] 6 mmol/L Normal 5-15 [facility] Comment on above: Performed By: #### 6 793-4 ####[facility] ([id number])[address], [address] [place] [address] 35974#### BMP, CBC ####[facility] ([id number])520 [place] [address] Calcium [Mass/Vol] 8.7 mg/dL Normal 8.5-10.5 [facility] Comment on above: Performed By: #### 6 793-4 ####[facility] ([id number])[address] [address] [place] [address] 46512#### BMP, CBC ####[facility] ([id number])[address] [place] [address] Chloride [Moles/Vol] 108 mmol/L Normal 98-109 [facility] Comment on above: Performed By: #### 6 793-4 ####[facility] ([id number])[address], [address] [place] [address] 81619#### BMP, CBC ####[facility] ([id number])5200 [place] [address] CO2 [Moles/Vol] 23 mmol/L Normal 22-32 [facility] Comment on above: Performed By: #### 6 793-4 ####[facility] ([id number])[address] [address] [place] [address] 33654#### BMP, CBC ####[facility] ([id number])5200 [place] [address] Creatinine [Mass/Vol] 0.93 mg/dL Normal 0.40-1.00 [facility] Comment on above: Result Comment: METH OD TRACEABLE TO IDMS STANDARD Performed By: #### 6 793-4 ####[facility] ([id number])[address] [place] [address]188#### BMP, CBC ####[facility] ([id number])[address] [place] [address] GFR/1.73 sq M.predicted among non-blacks MDRD (S/P/Bld) [Vol rate/Area] 73 mL/min/{1.73_m2} Normal >59 [facility] Comment on above: Result Comment: Repo rted eGFR is based on theCKD-EPI 2020 equation that doesnot use a race coefficient. Performed By: #### 6 793-4 ####[facility] ([id number])[address] [place] [address] 15307#### BMP, CBC ####[facility] ([id number])[address] [place] [address] Glucose [Mass/Vol] 159 mg/dL High 65-99 [facility] Comment on above: Performed By: #### 6 793-4 ####[facility] ([id number])[address] [place] [address] 84091#### BMP, CBC ####[facility] ([id number])5[address] [place] [address] Potassium [Moles/Vol] 4.3 mmol/L Normal 3.5-5.0 [facility] Comment on above: Performed By: #### 6 793-4 ####[facility] ([id number])[address] [place] [address]#### BMP, CBC ####[facility] ([id number])5200 [place] [address] Sodium [Moles/Vol] 137 mmol/L Normal 134-146 [facility] Comment on above: Performed By: #### 6 793-4 ####[facility] ([id number])[address], [address] [place] [address] 80525#### BMP, CBC ####[facility] ([id number])[address] [place] [address] Urea nitrogen [Mass/Vol] 21 mg/dL Normal 5-23 [facility] Comment on above: Performed By: #### 6 793-4 ####[facility] ([id number])[address], [address] [place] [address] 25222#### BMP, CBC ####[facility] ([id number])[address] [place] [address] BLOOD CULTUREon 05-03-2024 Bacteria identified Aer cx Nom (Bld) SPECIMEN NOTES SUBOPTIMAL VOLUME OF BLOOD COLLECTED, RESULTS MAY BE AFFECTED. CULTURE RESULTS NO GROWTH 5 DAYS Normal [facility] Comment on above: Performed By: #### 1 7928-3 ####[facility] ([id number])[address], [address] [place] [address] Bacteria identified Aer cx Nom (Bld) CULTURE RESULTS NO GROWTH 5 DAYS Normal [facility] COMPLETE BLOOD COUNTon 05-03 Erythrocyte distribution width (RBC) [Ratio] 22.3 % High 11.5-15.0 [facility] Comment on above: Performed By: #### 6 793-4 ####[facility] ([id number])[address], [address] [place] [address] 93064#### BMP, CBC ####[facility] ([id number])5[address] [place] [address] Hematocrit (Bld) [Volume fraction] 22.7 % Low 35-47 [facility] Comment on above: Performed By: #### 6 793-4 ####[facility] ([id number])2130 [facility] [address] [place] [address] 68100#### BMP, CBC ####[facility] ([id number])5[address] [facility] [place] [address] Hemoglobin (Bld) [Mass/Vol] 7.5 g/dL Low 11.7-15.5 [facility] Comment on above: Performed By: #### 6 793-4 ####[facility] ([id number])0 [facility] [address] [place] [address] 41794#### BMP, CBC ####[facility] ([id number])5200 [place] [address] MCH (RBC) [Entitic mass] 29.4 pg Normal 27-34 [facility] Comment on above: Performed By: #### 6 793-4 ####[facility] ([id number])0 [facility] [address] [place] [address] 13306#### BMP, CBC ####[facility] ([id number])5[address] [place] [address] MCHC (RBC) [Mass/Vol] 33.2 g/dL Normal 32-36 [facility] Comment on above: Performed By: #### 6 793-4 ####[facility] ([id number])2130 [facility] [address] [place] [address] 91901#### BMP, CBC ####[facility] ([id number])5200 [place] [address] MCV (RBC) [Entitic vol] 89 fL Normal 80-100 [facility] Comment on above: Performed By: #### 6 793-4 ####[facility] ([id number])2130 [facility] [address] [place] [address] 95854#### BMP, CBC ####[facility] ([id number])5200 [place] [address] Platelet mean volume (Bld) [Entitic vol] 7.0 fL Normal 7-12 [facility] Comment on above: Performed By: #### 6 793-4 ####[facility] ([id number])[address], [address] [place] [address] 25437#### BMP, CBC ####[facility] ([id number])5200 [place] [address] Platelets (Bld) [#/Vol] 143 10*3/uL Low 150-450 [facility] Comment on above: Performed By: #### 6 793-4 ####[facility] ([id number])[address], [address] [place] [address] 11373#### BMP, CBC ####[facility] ([id number])5199 [place] [address] RBC COUNT 2.56 X10E12/L Low 3.80-5.20 [facility] Comment on above: Performed By: #### 6 793-4 ####[facility] ([id number])[address], [address] [place] [address] 53209#### BMP, CBC ####[facility] ([id number])5200 [place] [address] WBC (Bld) [#/Vol] 2.7 10*3/uL Low 4.0-11.0 [facility] Comment on above: Performed By: #### 6 793-4 ####[facility] ([id number])[address], [address] [place] [address] 25381#### BMP, CBC ####[facility] ([id number])5200 [place] [address] Prealbumin IA [Mass/Vol]on 0 05-03-2024 Prealbumin [Mass/Vol] 12 mg/dL Low 18-45 [facility] Comment on above: Performed By: #### 6 793-4 ####[facility] ([id number])[address], [address] [place] [address] 22990#### BMP, CBC ####[facility] ([id number])5200 [place] [address] 36on 05-02-2024 36 Anabela with [facility] faxing over Amikacin trough from 04/27 Normal [facility] ANAEROBE CULTUREon Bacteria identified Anaer cx Nom (Unsp spec) SPECIMEN NOTES SPECIMEN A CULTURE RESULTS NO GROWTH 5 DAYS Normal [facility] Comment on above: Performed By: #### 6 35-3 ####[facility] ([id number])[address], [address] [place] [address]49 CATHETER TIP CULTUREon 05-02 Bacteria identified Cx Nom (Catheter tip) CULTURE RESULTS NO GROWTH 2 DAYS Normal [facility] Comment on above: Performed By: #### 1 9128-8 ####[facility] ([id number])[address], [address] [place] [address]70 FUNGAL CULTUREon 05-02-2024 Fungus identified Cx Nom (Unsp spec) [facility] Comment on above: Performed By: #### 5 80-1 ####[facility] ([id number])[address], [address] [place] [address] 25609 SEND OUT TESTon 05-02-2024 SENT TO [facility] VIA FED EX [phone] [facility] SPECIMEN ISOLATE FROM LEFT CHEST TISSUE SPECIMEN A [facility] TEST NAME: AFB4 TO [facility] Normal [facility] TEST RESULT See separate report. View in OnBase or in EPIC. Normal [facility] TISSUE CULTUREon 05-02-2024 Bacteria identified Aer cx Nom (Tiss) SPECIMEN NOTES SPECIMEN A GRAM STAIN >25 WHITE BLOOD CELLS/LPF 0 SQUAMOUS EPITHELIAL CELLS/LPF NO ORGANISMS SEEN CULTURE RESULTS MANY Mycobacterium Abscessus SEE FUNGUS CULTURE FOR SPECIATION AND SUSCEPTIBILITY Normal [facility] Comment on above: Performed By: #### 6 27-0 ####[facility] ([id number])[address] [facility], [address] [address] Documentationon 04-28-2024 Documentation [id number] Ike Flannery 1970 F Date Provider Department Center 04/28/2024 184-LUI, [facility] Heal Family History Adopted: Yes Problem Relation Age of Onset Heart attack Father Family Status - Relation Status Age at Father Normal [facility] Documentation [id number] Ike Flannery 1970 F Date Provider Department Center 04/28/2024 184-LUI, [facility] Family History Adopted: Yes Problem Relation Age of Onset Heart attack Father Family Status - Relation Status Age at Father Normal [facility] Documentationon 04-27-2024 Documentation [id number] Ike Flanenry 1970 F Date Provider Department Center 04/27/2024 184-LUI, [facility] Heal Family History Adopted: Yes Problem Relation Age of Onset Heart attack Father Family Status - Relation Status Age at Father Normal [facility] Abstracton 04-26-2024 Abstract [id number] Ike Flannery 1970 F Date Provider Department Center 04/26/2024 184-LUI, [facility] Heal Family History Adopted: Yes Problem Relation Age of Onset Heart attack Father Family Status - Relation Status Age at Father Normal [facility] Documentationon 04-26-2024 Documentation [id number] Ike Flannery 1970 F Date Provider Department Center 04/26/2024 184-LUI, [facility] Heal Family History Adopted: Yes Problem Relation Age of Onset Heart attack Father Family Status - Relation Status Age at Father Normal [facility] 36on 04-25-2024 36 RN called to request most recent labs be faxed to [facility]. Fax number confirmed [facility] Abstracton 04-25-2024 Abstract [id number] Ike Flannery 1970 F Date Provider Department Center 04/25/2024 AVI BO [facility] Anthony Heal Family History Adopted: Yes Problem Relation Age of Onset Heart attack Father Family Status - Relation Status Age at Father [facility] Follow-Upon 04-20-2024 Follow-Up [id number] Ike Flannery 1970 F Date Provider Department Center 04/20/2024 [facility] Family History Adopted: Yes Problem Relation Age of Onset Heart attack Father Family Status - Relation Status Age at Father Level of Service:22382 DC OFFICE/OUTPATIENT ESTABLISHED MOD MDM 30 MIN [facility] 36on 04-19-2024 36 On 04/18/24 at 09:20 AM, on behalf of Dr. Herman Lui, I contacted [facility] Microbiology Department to check for any updates on the patient's cultures sent to [facility]. This is the second phone call that I have made to follow up, with the first call being conducted on 11APR2024. Based on the timeline listed on the [facility] microbiological report, it is anticipated that final susceptibilities should have resulted from the 02/19/24 tissue culture and so be available to be faxed over to [facility]. I gave my fax number to the [facility] laboratory personnel and they stated that they would fax the microbiology report(s) to me when available. I asked the laboratory personnel to please call [facility] laboratory to try to expedite follow up since the patient has an appointment on 20APR2024. Will continue to monitor and follow up as appropriate. Avi Tobar, PharmD, BCPS; 04/19/2024 [facility] Telephoneon 04-19-2024 Telephone [id number] Ike Flannery 1970 F Date Provider Department Center 04/19/2024 [facility] Anthony Heal Family History Adopted: Yes Problem Relation Age of Onset Heart attack Father Family Status - Relation Status Age at Father [facility] 36on 04-18-2024 36 RN called to request Amikacin peak level be faxed to [facility] ID. Confirmed fax number with Anabela. Confirmed patient will have Amikacin trough drawn at infusion today with Anabela. [facility] 36on 04-15-2024 36 Call to [facility] and confirmed that pt is starting Amikacin today with peak being drawn then. They will schedule for Thursday for her trough prior to her second dose. [facility] Orders Onlyon 04-15-2024 Orders Only [id number] Ike Flannery 1970 F Date Provider Department Center 04/15/2024 [facility] Family History Adopted: Yes Problem Relation Age of Onset Heart attack Father Family Status - Relation Status Age at Father [facility] 36on 04-13-2024 36 Message left for [facility] asking about starting Amikacin. Awaiting their call back. [facility] Auditory function testson Bilateral mild sensorineural hearing loss above 3K Hz [facility] 36on 04-12-2024 36 After multiple calls and multiple orders sent pt is scheduled for her hearing test in [facility] 04/13. Orders were called and faxed to [facility] for the first dose of Amikacin. Orders also called and faxed to Quique at [facility] for continuation of Amikacin 3 times weekly for 6 weeks. Will follow up with [facility] to see how soon they will have the med for the first dose. [facility] ALL CBC WITH AUTO DIFFon BASOPHILS ABSOLUTE AUTO 0 [facility] Basophils/100 WBC (Bld) 0.6 % 0.2 - 2.0 % [facility] Eosinophils/100 WBC (Bld) 5.3 % 0.9 - 7.0 % [facility] Erythrocyte distribution width (RBC) [Ratio] 16.7 % High 11.0 - 15.0 % [facility] Hematocrit (Bld) [Volume fraction] 28.9 % Low 36.0 - 48.0 % [facility] Hemoglobin (Bld) [Mass/Vol] 9.6 g/dL Low 12.0 - 16.0 g/dL [facility] IMMATURE GRANULOCYTES ABS AUTO 0.01 [facility] Immature granulocytes/100 WBC (Bld) 0.2 % 0.0 - 0.5 % [facility] Interpretation and review of laboratory results Abnormal [facility] LYMPHOCYTES ABSOLUTE AUTO 0.7 Low [facility] Lymphocytes/100 WBC (Bld) 12.4 % Low 20.5 - 60.0 % [facility] MCH (RBC) [Entitic mass] 30.7 pg 26.7 - 34.0 pg [facility] MCHC (RBC) [Mass/Vol] 33.2 g/dL 29.9 - 35.2 g/dL [facility] MCV (RBC) [Entitic vol] 92.3 fL 81.0 - 99.0 fL [facility] MONOCYTES ABSOLUTE AUTO 0.5 [facility] Monocytes/100 WBC (Bld) 9.7 % 1.7 - 12.0 % [facility] NEUTROPHILS ABSOLUTE AUTO 3.8 [facility] Neutrophils/100 WBC (Bld) 71.8 % 43.0 - 75.0 % [facility] Platelet mean volume (Bld) [Entitic vol] 8.8 fL Low 9.5 - 13.5 fL [facility] TBH EO # 0.3 [facility] PLT 258 [facility] TB RBC 3.13 Low [facility] TB WBC 5.3 [facility] [place] 04-07-2024 L -- ---- Specimen: [id number] Received: 04/07/24 Status: EUGENIO Lentz Num: [id number] Spec Type: Surgical Subm Dr: Evan Thompson Tissues: A Ovary W/ or W/O Fallopian Tube, Non-Neoplastic (BILATERAL FALLOPIAN TUBES AN Procedures: /, Gross/Micro L4 ---- Age/ Patient Sex Location Account Attending Physician ---- Ike Flannery 53/F LABELL [id number] Evan Thompson ---- SPEC NUM: [id number] RECD: 04/07/24 STATUS: EUGENIO LENTZ NUM: [id number] AMY: 04/07/[address] [facility] [address]: Evan Thompson ENTERED: 04/07/24 [facility] [address]: Edwin Palacios SPEC TYPE: Surgical DEPT: [...] [id number] Received: 04/07/24 Status: EUGENIO Lentz Num: [id number] Spec Type: Surgical Subm Dr: Evan Thompson Tissues: A Ovary W/ or W/O Fallopian Tube, Non-Neoplastic (BILATERAL FALLOPIAN TUBES AN Procedures: , Gross/Micro L4 ---- Patient: Ike Flannery [id number] (Continued) ---- Specimen: [id number] Received: 04/07/24 (Continued) Gross Description (Continued) Signed (signature on file) Elvis Mcgregor MD 04/08/24 1517 ---- Specimen: [id number] Received: 04/07/24 Status: EUGENIO Lentz Num: [id number] Spec Type: Surgical Subm Dr: Evan Thompson Tissues: A Ovary W/ or W/O Fallopian Tube, Non-Neoplastic (BILATERAL FALLOPIAN TUBES AN Procedures: DAVIDVahe Hand/Cornelio L4 ---- Patient: Ike Flannery [id number] (Continued) ---- Specimen: [id number] Received: 04/07/24-2 (Continued) Gross Description (Continued) #1 reveals a [...] performed supporting the above interpretation CPT Codes 00089 ---- ---- Specimen: [id number] Rec (more content not included)... Normal [facility] 04-04-2024 36 RN called to request most recent labs be faxed to [facility]. Fax number confirmed Normal [facility] 04-01-2024 36 Order Faxed to [phone] For Hearing test. Normal [facility] 03-31-2024 36 Called patient as [...] done. 5.Patient is going to [facility] on 04/01/24 to receive pembrolizumab infusion. She is also going to get labs drawn at that time. Avi Tobar, SukiD, [facility] 36 Thank you. Keep me posted :) [facility] 36 Call to [place] [facility] for labs and was told pt to be in tomorrow. Second call to pt to see if she has scheduled the baseline hearing test so we can proceed with starting Amikacin. Awaiting her call back. [facility] Telephoneon 03-31-2024 Telephone [id number] Ike Flannery Yumi 1970 F Date Provider Department Center 03/31/2024 [facility] Anthony Heal Family History Adopted: Yes Problem Relation Age of Onset Heart attack Father Family Status - Relation Status Age at Father [facility] 36on 03-28-2024 36 Followed up with [...] is out of tedizolid. I called the [facility] and they are going to [...] I would follow up. Avi Tobar, PharmD, BCPS Normal [facility] Telephoneon 03-28-2024 Telephone [id number] Ike Flannery Yumi 1970 F Date Provider Department Center 03/28/2024 104AVI FRANCES [facility] Anthony Heal Family History Adopted: Yes Problem Relation Age of Onset Heart attack Father Family Status - Relation Status Age at Father Normal [facility] ANAEROBE CULTUREon Bacteria identified Anaer cx Nom (Unsp spec) CULTURE RESULTS NO GROWTH 5 DAYS Normal [facility] Comment on above: Performed By: #### 6 35-3 ####[facility] ([id number])[address] [facility] [address] [place] [address]38 FUNGAL CULTUREon 03-21-2024 Fungus identified Cx Nom (Unsp spec) Normal [facility] Comment on above: Performed By: #### 5 80-1 ####[facility] ([id number])[address] [facility], [address] [address] HGB AND HCTon 03-21-2024 Hematocrit (Bld) [Volume fraction] 21.4 % Low 35-47 [facility] Comment on above: Performed By: #### H H ####[facility] ([id number])5200 [place] [address] Hemoglobin (Bld) [Mass/Vol] 7.5 g/dL Low 11.7-15.5 [facility] Comment on above: Performed By: #### H H ####[facility] ([id number])5200 [place] [address] SEND OUT TESTon 03-21-2024 SENT TO [facility] RESEARCH [facility] Comment on above: Result Comment: [id number] SPECIMEN LJ SLANT FROM LEFT BREAST TISSUE Normal [facility] TEST NAME: [facility] AFB4 FULL IDENTIFICATION [facility] TEST NAME: [facility] APPR O AFB SUSCEPTIBITIES AND GENE RESISTANCE Normal [facility] TEST RESULT See separate report. View in OnBase or in REPP. Normal [facility] [facility] T[facility] CULTUREon 03-21-2024 Bacteria identified Aer cx Nom (Tiss) GRAM STAIN 0 to 1 WHITE BLOOD CELLS/LPF 0 SQUAMOUS EPITHELIAL CELLS/LPF NO ORGANISMS SEEN CULTURE RESULTS NO GROWTH 3 DAYS Normal [facility] Comment on above: Performed By: #### 6 27-0 ####[facility] ([id number])2129 [facility], [address] [place] [address] 36on 03-18-2024 36 Pt is to start on Amikacin 3 times weekly but has an upcoming trip to [place] planned. Spoke with pt and she returns 03/27. Spoke with Quique at [facility], Marybel TUFT MACHINE OPERATOR and Dr Lui regarding how to proceed. [...] plan. Will work on coordinating care with Nestoreloisa for first dose. Pt will schedule her hearing test and will call if it can't be done prior to 03/28. Normal [facility] Orders Onlyon 03-18-2024 Orders Only [id number] Ike Flannery 1970 F Date Provider Department Center 03/18/2024 MARYBEL DUKE [facility] INFEC [facility] Family History Adopted: Yes Problem Relation Age of Onset Heart attack Father Family Status - Relation Status Age at Father [facility] 36on 03-17-2024 36 I called [facility] Oncologist Dr. Aarti Hope and [...] clofazimine is somewhat limited as data from nitric acid concentrator operator is derived from in vitro information and [...] be made as appropriate. Avi Tobar, Frank, [facility] Clinical Research Pharmacist Office Number: [phone] [facility] Telephoneon 03-17-2024 Telephone [id number] Ike Flannery 1970 F Date Provider Department Center 03/17/2024 258-HEIDYJOSSY CHRISTIANSON [facility] IN[facility] Family History Adopted: Yes Problem Relation Age of Onset Heart attack Father Family Status - Relation Status Age at Father Normal [facility] Follow-Upon 03-16-2024 Follow-Up [id number] Ike Flannery 1970 F Date Provider Department Center 03/16/2024 258-HEIDYJOSSY CHRISTIANSON [facility] Family History Adopted: Yes Problem Relation Age of Onset Heart attack Father Family Status - Relation Status Age at Father Level of Service:21626 DC OFFICE/OUTPATIENT ESTABLISHED LOW MDM 20 MIN [facility] Orders Onlyon 03-16-2024 Orders Only [id number] Ike Flannery 1970 Date Provider Department Center 03/16/2024 104AVI FRANCES [facility] Family History Adopted: Yes Problem Relation Age of Onset Heart attack Father Family Status - Relation Status Age at Father Normal [facility] Orders Only [id number] Ike Flannery 1970 F Date Provider Department Center 03/16/2024 MARYBEL DUKE [facility] Heal Family History Adopted: Yes Problem Relation Age of Onset Heart attack Father Family Status - Relation Status Age at Father Normal [facility] 36on 03-15-2024 36 from [facility] called and would like to speak with you regarding patient. Stated it was urgent patient is scheduled to see them in office at 11 am Cell phone [phone] Normal [facility] Telephoneon 03-15-2024 Telephone [id number] Ike Flannery 1970 F Date Provider Department Center 03/15/2024 ODALYS ACEVES [facility] Family History Adopted: Yes Problem Relation Age of Onset Heart attack Father Family Status - Relation Status Age at Father Normal [facility] Orders Onlyon 03-11-2024 Orders Only [id number] Ike Flannery 1970 F Date Provider Department Center 03/11/2024 JOSSY ESQUEDA [facility] INF Anthony Heal Family History Adopted: Yes Problem Relation Age of Onset Heart attack Father Family Status - Relation Status Age at Father [facility] 36on 03-10-2024 36 [facility] is prescribing the imipenem and she will run out on 03/15/24. Spoke to pharmacist at 9:36am and they will extend until 03/16/24. [facility] 36on 03-09-2024 36 Thanks, I'm aware spoke to about sending additional susceptibilities [facility] 36 Pt called and stated her antibiotics is set to end on 03/15/24. Appt scheduled with you on 03/16/24. Pt wanted to know if she need to continue antibiotics ? [facility] Telephoneon 03-09-2024 Telephone [id number] Ike Flannery 1970 Date Provider Department Center 03/09/2024 ODALYS ACEVES [facility] INF Anthony Heal Family History Adopted: Yes Problem Relation Age of Onset Heart attack Father Family Status - Relation Status Age at Father [facility] 36on 03-04-2024 36 [facility], Shen Dickson called that patient has a positive AFB. Culture was taken on 02/25 on the left breast wound tissue. Phone number in case there is follow-up is: [phone]. [facility] Telephoneon 03-04-2024 Telephone [id number] Ike Flannery 1970 F Date Provider Department Center 03/04/2024 [id number]-HTRNDOMINGO [facility] VAS [place] Count Family History Adopted: Yes Problem Relation Age of Onset Heart attack Father Family Status - Relation Status Age at Father Reason for Visit and Comments: Results [95] [facility] 36on 03-03-2024 36 Labs will be sent al l except CBC with will be drawn tomorrow 03/04. [facility] 36on 02-29-2024 36 left for labs. [facility] AFB CULTURE(CONCENTRATED)on 02-26-2024 Mycobacterium sp identified Org specific cx Nom (Unsp spec) AFB SMEAR FEW ACID FAST BACILLI SEEN ON CONCENTRATED SMEAR CULTURE RESULTS Mycobacterium Abscessus SSP. ABSCESSUS SEE SEPARATE REPORT FOR SUSCEPTIBILITY RESULT 5 [facility] Comment on above: Performed By: #### 5 43-9 ####[facility] ([id number])[address], [address] [address] ANAEROBE CULTUREon Bacteria identified Anaer cx Nom (Unsp spec) CULTURE RESULTS NO GROWTH 5 DAYS [facility] Comment on above: Performed By: #### 6 35-3 ####[facility] ([id number])[address], [address] [place] [address] FUNGAL CULTUREon 02-26-2024 Fungus identified Cx Nom (Unsp spec) FUNGAL SMEAR NO FUNGAL ELEMENTS SEEN ON DIRECT SMEAR CULTURE RESULTS NO FUNGUS ISOLATED AFTER 4 WEEKS [facility] Comment on above: Performed By: #### 5 80-1 ####[facility] ([id number])[address], [address] [place] [address] SEND OUT TESTon 02-26-2024 SENT TO [facility] RESEARCH [facility] Comment on above: Result Comment: [id number] SPECIMEN LEFT BREAST WOUND LJ SLANT [facility] TEST NAME: [facility] APPR O SUSCEPTIBILTY AND GENE RESISTANCE TESING [facility] TEST RESULT See separate report. View in OnBase or in EPIC. [facility] TISSUE CULTUREon 02-26-2024 Bacteria identified Aer cx Nom (Tiss) GRAM STAIN >25 WHITE BLOOD CELLS/LPF 0 SQUAMOUS EPITHELIAL CELLS/LPF NO ORGANISMS SEEN CULTURE RESULTS MANY Mycobacterium Abscessus GROWTH OBSERVED AT 3RD DAY See AFB Culture for susceptibility testing. [facility] Comment on above: Performed By: #### 6 27-0 ####[facility] ([id number])[address], [address] [place] [address] Orders Onlyon 02-17-2024 Orders Only [id number] Ike Flannery 1970 F Date Provider Department Center 02/17/2024 AVI BO [facility] Family History Adopted: Yes Problem Relation Age of Onset Heart attack Father Family Status - Relation Status Age at Father [facility] Follow-Upon 02-16-2024 Follow-Up [id number] Ike Flannery 1970 F Date Provider Department Center 02/16/2024 HERMAN VITAL [facility] Adopted: Yes Problem Relation Age of Onset Heart attack Father Family Status - Relation Status Age at Father Level of Service:65691 DC OFFICE/OUTPATIENT ESTABLISHED MOD MDM 30 MIN [facility] 36on 02-15-2024 36 Put in a refill for tedizolid. Imipenem is IV, can we extend that by 4 weeks while we wait for the omadacycline PA to go through. [facility] 36 Pt called and stated she need refill on both medications you prescribed. [facility] 36 I called [facility], general number [phone], then connected to Medical Records (calling from physician's office). Spoke to Seema, who will fax over EKG results from 01/27/24. I instructed Seema to please send over as soon as possible. These EKG results are needed for baseline procedure, prior to taking clofazimine, and to be uploaded into [employer] for clinical review. Avi Tobar, PharmD, BCPS; Clinical Research Pharmacist [facility] Orders Onlyon 02-15-2024 Orders Only [id number] Ike Flannery 1970 F Date Provider Department Center 02/15/2024 HERMAN VITAL [facility] INFEC [facility] Family History Adopted: Yes Problem Relation Age of Onset Heart attack Father Family Status - Relation Status Age at Father [facility] Telephoneon 02-15-2024 Telephone [id number] Ike Flannery 1970 F Date Provider Department Center 02/15/2024 HERMAN VITAL [facility] INF Anthony Heal Family History Adopted: Yes Problem Relation Age of Onset Heart attack Father Family Status - Relation Status Age at Father [facility] Telephone [id number] Ike Flannery 1970 F Date Provider Department Center 02/15/2024 ODALYS ACEVES [facility] INF [facility] Family History Adopted: Yes Problem Relation Age of Onset Heart attack Father Family Status - Relation Status Age at Father [facility] 36on 02-12-2024 36 Thank you [facility] 36on 02-11-2024 36 This was also faxed to office [phone] [facility] 36 Letter/note entered into iodine [facility] 36 Voicemail left on 02/10 at 11:25 AM and patient call received on 02/10 at 11:39 AM. This patient is part of an investigational new drug single patient expanded access program for clofazimine, IND #[id number]. As the Clinical Research Pharmacist, I called the patient to follow up on clofazimine monitoring. EKG was done at [facility] on 01/26, however, it appears that results were not faxed to ID clinic. Fax number [phone] provided. Patient to get CMP and other [...] insurance. I am available at office phone [phone] with questions. [facility] 36 Patient called and stated her lead supply worker Dr. Morris did PA on OMADACYCLINE but it was denied. He requested the patient call us and see if you can type a letter to support why patient need medication. [facility] Documentationon 02-11-2024 Documentation [id number] Ike Flannery 1970 Provider Department Center 02/11/2024 HERMAN VITAL [facility] IN[facility] Anthony Heal Family History Adopted: Yes Problem Relation Age of Onset Heart attack Father Family Status - Relation Status Age at Father [facility] Telephoneon 02-11-2024 Telephone [id number] Ike Flannery 1970 Date Provider Department Center 02/11/2024 AVI BO [facility] INF Anthony Heal Family History Adopted: Yes Problem Relation Age of Onset Heart attack Father Family Status - Relation Status Age at Father [facility] Telephone [id number] Ike Flannery 1970 Provider Department Center 02/11/2024 ODALYS ACEVES [facility] INF Anthony Heal Family History Adopted: Yes Problem Relation Age of Onset Heart attack Father Family Status - Relation Status Age at Father [facility] Telephoneon 02-08-2024 Telephone [id number] Ike Flannery 1970 Provider Department Center 02/08/2024 HERMAN VITAL [facility] IN[facility] Anthony Heal Family History Adopted: Yes Problem Relation Age of Onset Heart attack Father Family Status - Relation Status Age at Father [facility] 3602-03-2024 36 Spoke to her Thursday, given that she is on tedizolid and imipenem the amoxicillin unlikely to be helpful. Not uncommon to have strep colonization in adults, if she is still having pharyngeal pain and discomfort it may be viral. [facility] 3602-02-2024 36 Patient states that amoxicillin is not working & strep is getting worse. She is asking is you would call her in a stronger antibiotic/please advise Patient is scheduled 02/15 at 4:00 pm. Calling [facility] for weekly labs. Patient was informed with the imipenem & tedizolid should take care of any strep that patient would have, it could also be viral but would not know without seeing patient./per Dr. Lui Left patient a voice mail X 1./lss [facility] Telephoneon 02-02-2024 Telephone [id number] Ike Flannery 1970 F Date Provider Department Center 02/02/2024 Olivia-BONNIE GINO [facility] INF Anthony Heal Family History Adopted: Yes Problem Relation Age of Onset Heart attack Father Family Status - Relation Status Age at Father [facility] 36on 02-01-2024 36 Patient called gale stewart that over the weekend she tested positive for strep and was prescribed Amoxicillin. [facility] 36on 01-26-2024 36 RN called to request most recent labs be faxed to [facility]. Fax number confirmed [facility] 36on 01-25-2024 36 I called they will call me back [facility] [address] Coffey called a nd wanted to talk regarding pt as soon as possible. Office - [phone] Cell- [phone] [facility] Office Visiton 01-15-2024 Follow-up visit [id number] Alma DeliaIke A 1970 Provider Department [place] 01/15/2024 JosephHU HERMAN [facility] INF Anthony Heal Family History Adopted: Yes Problem Relation Age of Onset Heart attack Father Family Status - Relation Status Age at Father Level of Service:74915 DC OFFICE/OUTPATIENT ESTABLISHED MOD MDM 30 MIN [facility] 36on 01-12-2024 36 Patients specialty pharmacy is not able to order the tedizolid (Sivextro) do the the shortage of the medication. I will call our [facility] to see if we can get it in. Rx was called in to the [facility] they are able to fill the prescription. [facility] 36on 01-08-2024 36 Patient called gale stewart that her IV antibiotics will be completed on 01/14 and that you were possibly going to do another IV antibiotic route. I saw you ordered Tedizolid and was going to fax that to her [facility]. Did you want any other IV antibiotics? Please Advise [facility] Orders Onlyon 01-04-2024 Orders Only [id number] Ike Flannery 1970 F Date Provider Department Center 01/04/2024 HERMAN VITAL [facility] INF Anthony Heal Family History Adopted: Yes Problem Relation Age of Onset Heart attack Father Family Status - Relation Status Age at Father [facility] Orders Onlyon 01-01-2024 Orders Only [id number] Ike Flannery 1970 F Date Provider Department Center 01/01/2024 HERMAN VITAL [facility] INF Anthony Heal Family History Adopted: Yes Problem Relation Age of Onset Heart attack Father Family Status - Relation Status Age at Father [facility] 37on 12-30-2023 37 Keep taking current antibiotics for now. 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 We will reach out to your Oncologist about when to restart radiation therapy. We don't anticipate deferring it at this time. Follow-up in about 1 month [facility] Follow-Upon 12-30-2023 Follow-Up [id number] Ike Flannery 1970 Date Provider Department Center 12/30/2023 SCOTT CHU [facility] INF Anthony Heal Family History Adopted: Yes Problem Relation Age of Onset Heart attack Father Family Status - Relation Status Age at Father Level of Service:19926 DC OFFICE/OUTPATIENT ESTABLISHED MOD MDM 30 MIN () Reason for Visit and Comments: Invasive ductal carcinoma [Other] [facility] ED Clinical Summaryon 2023 ED Clinical Summary ED Clinical Summary [place] [id number] ED Clinical Summary Person Information Name: IKE FLANNERY [place] Age: 53 Years : 1970 Sex: Female Language: Grenadian PCP: RANDY CALLE DO Marital Status: Phone: [phone] Visit Id: Visit Reason: Eye problem; NO [...] 12/28/2023 21:34:41 12/28/2023 21:34:41 12/28/2023 21:34:41 ADDRESS: [facility] [address] [place] [phone] PHYS DOC NOTES: MEDICAL INFORMATION: Prescriptions Given: Medications to Continue with No Changes Other Medications chlorthalidone as directed. cyclobenzaprine as directed. lisinopril (lisinopril 20 mg Tab) 1 Tablets By Mouth every day. metoprolol as directed. spironolactone as directed. trazodone (traZODONE 50 mg Tab) By Mouth 2 times a day. PATIENT EDUCATION INFORMATION: Instructions: Vitreous Detachment Follow up: With: Address: When: Georgiana Justice [facility] [address], [address] [place] [address] Business (1) In 1 day 12/29/2023 Comments: Please call first in the morning for same-day appointment With: Address: When: RANDY HALLMAGALYS [address] [place], [place] [phone] Business (1) In 3 days DIAGNOSIS: Posterior vitreous detachment Normal [facility] ED Note-Physicianon 12-28-19 24 ED Note-Physician ED [...] and Complexity of Problems Differential Diagnosis: [] [facility] Data External documents reviewed: N/A My [...] In 1 day 12/29/2023 EDT [facility] [address], [facility] [address] [place] [address]- Business (1) Additional Instructions: Please call first in the morning for same-day appointment RANDY CALLE In [address] [place] [address] Business (1) Additional Instructions: Patient [...] Results No qualifying data available. Normal [facility] Comment on above: Result Comment: Elec tronically Signed By: Rusty Horton DO\.br\Date and Time Signed: 12/28/23 21:30 EDT ED Patient Summaryon 024 ED Patient Summary ED Patient Summary [place] [id number] Patient Discharge Instructions Person Information Name: IKE FLANNERY Age: 53 Years Arrival Date: 12/28/2023 20:23:14 Discharge Diagnosis: Posterior vitreous detachment Primary Care Physician: RANDY CALLE DO Provider Information Primary Provider: Rusty Horton DO Advanced Billet Driller:None The exam and treatment you received in the Emergency Department were for an urgent problem and are not intended as complete care. It is important that you follow up with a doctor, nurse practitioner, or physician???s patient support assistant for ongoing care. If your symptoms [...] With: Address: When: Georgiana Justice [facility] [address], [facility] [address] [place] [address] Business (1) In 1 day 12/29/2023 Comments: Please call first in the morning for same-day appointment With: Address: When: RANDY HALLMAGALYS [address] [place], [place] [phone] Business (1) In 3 days In the event that this physician does not participate in your insurance network, please consult with your insurance company to find a nearby participating provider. Patient Education Materials: Vitreous Detachment A MESSAGE TO ALL PATIENTS REGARDING OPIOIDS PRESCRIPTION OPIOIDS: WHAT YOU NEED TO KNOW Prescription opioids can be used to help relieve xmzeuhtn-qr-ghxtzd pain and are often prescribed following a [...] (www.fda.gov (more content not included)... Normal [facility] Office Visiton 12-11-2023 Follow-up visit [id number] Ike Flannery 1970 F Date Provider Department Center 12/11/2023 SANDRITA HOFF [facility] INF Anthony Heal Family History Adopted: Yes Problem Relation Age of Onset Heart attack Father Family Status - Relation Status Age at Father Level of Service:37126 DC OFFICE/OUTPATIENT [facility] MDM 60 MINUTES Normal [facility] CBC AND AUTO DIFFon 12-09-19 24 ABSOLUTE BASOPHIL 0.0 X10E9/L Normal 0.0-0.2 [facility] Comment on above: Performed By: #### C ADARSH, 2776-03, , CBCA ####[facility] ([id number])5200 [facility] [place] [address] ABSOLUTE NEUTROPHIL 3.6 X10E9/L Normal 1.5-6.6 [facility] Comment on above: Performed By: #### C ADARSH, 2776-03, , CBCA ####[facility] ([id number])5200 [facility] [place] [address] Basophils/100 WBC (Bld) 0.2 % Normal [facility] Comment on above: Performed By: #### C ADARSH, 2776-03, , CBCA ####[facility] ([id number])5200 [place] [address] Eosinophils (Bld) [#/Vol] 0.0 10*3/uL Normal 0.0-0.4 [facility] Comment on above: Performed By: #### C ADARSH, 2776-03, , CBCA ####[facility] ([id number])5200 [place] [address] Eosinophils/100 WBC (Bld) 0.0 % Normal [facility] Comment on above: Performed By: #### C ADARSH, 2776-03, , CBCA ####[facility] ([id number])5200 [place] [address] Erythrocyte distribution width (RBC) [Ratio] 14.6 % Normal 11.5-15.0 [facility] Comment on above: Performed By: #### C ADARSH, 2776-03, , CBCA ####[facility] ([id number])5200 [facility] [place] [address] Hematocrit (Bld) [Volume fraction] 22.0 % Low 35-47 [facility] Comment on above: Performed By: #### C ADARSH, 2776-03, , CBCA ####[facility] ([id number])5200 [place] [address] Hemoglobin (Bld) [Mass/Vol] 7.4 g/dL Low 11.7-15.5 [facility] Comment on above: Performed By: #### C ADARSH, 2776-03, , CBCA ####[facility] ([id number])5200 [facility] [place] [address] Lymphocytes (Bld) [#/Vol] 0.5 10*3/uL Low 1.0-3.5 [facility] Comment on above: Performed By: #### C ADARSH, 2776-03, , CBCA ####[facility] ([id number])5200 [facility] [place] [address] Lymphocytes/100 WBC (Bld) 12.0 % Normal [facility] Comment on above: Performed By: #### C ADARSH, 2776-03, , CBCA ####[facility] ([id number])5200 [facility] [place] [place] [address] MCH (RBC) [Entitic mass] 29.9 pg Normal 27-34 [facility] Comment on above: Performed By: #### Jamal ALTAMIRANO, 2776-03, , CBCA ####[facility] ([id number])5200 [facility] [place] [address] MCHC (RBC) [Mass/Vol] 33.8 g/dL Normal 32-36 [facility] Comment on above: Performed By: #### C ADARSH, 2776-03, , CBCA ####[facility] ([id number])5200 [facility] [place] [place] [address] MCV (RBC) [Entitic vol] 89 fL Normal 80-100 [facility] Comment on above: Performed By: #### C ADARSH, 2776-03, , CBCA ####[facility] ([id number])5200 [place] [address] Monocytes (Bld) [#/Vol] 0.2 10*3/uL Normal 0-0.9 [facility] Comment on above: Performed By: #### C ADARSH, 2776-03, , CBCA ####[facility] ([id number])5200 [facility] [place] [address] Monocytes/100 WBC (Bld) 4.6 % Normal [facility] [facility] Comment on above: Performed By: #### C ADARSH, 2776-03, , CBCA ####[facility] ([id number])5200 [facility] [place] [address] Neutrophils/100 WBC (Bld) 83.2 % Normal [facility] Comment on above: Performed By: #### C ADARSH, 2776-03, , CBCA ####[facility] ([id number])5200 [facility] [place] [address] Platelet mean volume (Bld) [Entitic vol] 7.6 fL Normal 7-12 [facility] Comment on above: Performed By: #### C ADARSH, 2776-03, , CBCA ####[facility] ([id number])5200 [facility] [place] [address] Platelets (Bld) [#/Vol] 153 10*3/uL Normal 150-450 [facility] Comment on above: Performed By: #### C ADARSH, 2776-03, , CBCA ####[facility] ([id number])5200 [facility] [place] [address] RBC COUNT 2.48 X10E12/L Low 3.80-5.20 [facility] Comment on above: Performed By: #### C ADARSH, 2776-03, , CBCA ####[facility] ([id number])5200 [facility] [place] [place] [address] WBC (Bld) [#/Vol] 4.3 10*3/uL Normal 4.0-11.0 [facility] Comment on above: Performed By: #### C MP, 2777-1, 29572-6, CBCA ####[facility] ([id number])5200 [place] [address] CBC auto differentialon -0 Basophils (Bld) [#/Vol] 0.0 10*3/uL [facility] [...] 7.4 g/dL Low 11.7 - 15.5 g/dL [facility] Interpretation and review of laboratory results Abnormal [facility] Lymphocytes (Bld) [#/Vol] 0.5 10*3/uL Low [facility] Lymphocytes/100 WBC (Bld) 12.0 % [facility] MCH (RBC) [Entitic mass] 29.9 pg 27 - 34 pg [facility] MCHC (RBC) [Mass/Vol] 33.8 g/dL 32 - 36 g/dL P [facility] MCV (RBC) [Entitic vol] 89 [...] System RBC (Bld) [#/Vol] 2.48 10*6/uL Low [facility] WBC corrected for nucl RBC Auto (Bld) [#/Vol] 4.3 [facility] COMPREHENSIVE METABOLIC PANE [place] 12-09-2023 Albumin [Mass/Vol] 3.2 g/dL Normal 3.2-5.3 [facility] Comment on above: Performed By: #### C ADARSH, 2776-03, , CBCA ####[facility] ([id number])5200 [facility] [place] [address] ALP [Catalytic activity/Vol] 66 U/L Normal 39-130 [facility] Comment on above: Performed By: #### C ADARSH, 2776-03, , CBCA ####[facility] ([id number])5200 [facility] [place] [address] ALT [Catalytic activity/Vol] 30 U/L Normal 0-31 [facility] Comment on above: Performed By: #### C ADARSH, 2776-03, , CBCA ####[facility] ([id number])5200 [facility] [place] [place] [address] Anion gap [Moles/Vol] 7 mmol/L Normal 5-15 [facility] Comment on above: Performed By: #### C ADARSH, 2776-03, , CBCA ####[facility] ([id number])5200 [facility] [place] [place] [address] AST [Catalytic activity/Vol] 39 U/L Normal 0-41 [facility] Comment on above: Performed By: #### C ADARSH, 2776-03, , CBCA ####[facility] ([id number])5200 [facility] [place] [address] Bilirubin [Mass/Vol] 0.6 mg/dL Normal 0.3-1.2 [facility] Comment on above: Performed By: #### C ADARSH, 2776-03, , CBCA ####[facility] ([id number])5200 [place] [address] Calcium [Mass/Vol] 8.7 mg/dL Normal 8.5-10.5 [facility] Comment on above: Performed By: #### C ADARSH, 2776-03, , CBCA ####[facility] ([id number])5200 [facility] [place] [address] Chloride [Moles/Vol] 106 mmol/L Normal 98-109 [facility] Comment on above: Performed By: #### C ADARSH, 2776-03, , CBCA ####[facility] ([id number])5200 [facility] [place] [address] CO2 [Moles/Vol] 26 mmol/L Normal 22-32 [facility] Comment on above: Performed By: #### C ADARSH, 2776-03, , CBCA ####[facility] ([id number])5200 [facility] [place] [address] Creatinine [Mass/Vol] 1.50 mg/dL High 0.40-1.00 [facility] Comment on above: Result Comment: METH OD TRACEABLE TO IDMS STANDARD Performed By: #### C ADARSH, 2776-03, , CBCA ####[facility] ([id number])5200 [facility] [place] [address] GFR/1.73 sq M.predicted among non-blacks MDRD (S/P/Bld) [Vol rate/Area] 41 mL/min/{1.73_m2} Low >59 [facility] Comment on above: Result Comment: Repo rted eGFR is based on theCKD-EPI 2020 equation that doesnot use a race coefficient. Performed By: #### C ADARSH, 2776-03, , CBCA ####[facility] ([id number])5200 [facility] [place] [address] Glucose [Mass/Vol] 160 mg/dL High 65-99 [facility] Comment on above: Performed By: #### C ADARSH, 2776-03, , CBCA ####[facility] ([id number])5200 [place] [address] Potassium [Moles/Vol] 3.8 mmol/L Normal 3.5-5.0 [facility] Comment on above: Performed By: #### C ADARSH, 2776-03, , CBCA ####[facility] ([id number])5200 [place] [address] Protein [Mass/Vol] 5.9 g/dL Low 6.0-8.0 [facility] Comment on above: Performed By: #### C ADARSH, 2776-03, , CBCA ####[facility] ([id number])5200 [place] [address] Sodium [Moles/Vol] 139 mmol/L Normal 134-146 [facility] Comment on above: Performed By: #### C ADARSH, 2776-03, , CBCA ####[facility] ([id number])5200 [place] [address] Urea nitrogen [Mass/Vol] 23 mg/dL Normal 5-23 [facility] Comment on above: Performed By: #### C ADARSH, 2776-03, , CBCA ####[facility] ([id number])5200 [place] [address] Comprehensive metabolic pane [place] 12-09-2023 Albumin [Mass/Vol] 3.2 g/dL 3.2 - 5.3 g/dL [facility] ALP [Catalytic activity/Vol] 66 U/L 39 - 130 U/L [facility] ALT No additional P-5'-P [Catalytic activity/Vol] 30 U/L 0 - 31 U/L [facility] Anion gap [Moles/Vol] 7 mmol/L 5 - 15 mmol/L [facility] AST [Catalytic activity/Vol] 39 U/L 0 - 41 U/L [facility] Bilirubin [Mass/Vol] 0.6 mg/dL 0.3 - 1 .2 mg/dL [facility] Calcium [Mass/Vol] 8.7 mg/dL 8.5 - 10. 5 mg/dL [facility] Chloride [Moles/Vol] 106 mmol/L 98 - 10 9 mmol/L [facility] CO2 [Moles/Vol] 26 mmol/L 22 - 32 mmol/L [facility] Creatinine [Mass/Vol] 1.50 mg/dL High 0.40 - 1.00 mg/dL [facility] Comment on above: METHOD TRACEABLE TO [facility] STANDARD eGFR (CKD-EPI)non-race dependent 41 Low - PINF [facility] Comment on above: Reported eGFR is based on the CKD-EPI 2020 equation that does not use a race coefficient. Glucose [Mass/Vol] 160 mg/dL High 65 - 99 mg/dL [facility] Interpretation and review of laboratory results Abnormal [facility] Potassium [Moles/Vol] 3.8 mmol/L 3.5 - 5.0 mmol/L [facility] Protein [Mass/Vol] 5.9 g/dL Low 6.0 - 8.0 g/dL [facility] Sodium [Moles/Vol] 139 mmol/L 134 - 146 mmol/L [facility] Urea nitrogen [Mass/Vol] 23 mg/dL 5 - 23 mg/dL [facility] MAGNESIUMon 12-09-2023 Magnesium [Mass/Vol] 1.8 mg/dL Normal 1.8-2.6 [facility] Comment on above: Performed By: #### C MP, 2777-1, 06099-1, CBCA ####[facility] ([id number])5200 [place] [address] Magnesiumon 12-09-2023 Magnesium [Mass/Vol] 1.8 mg/dL 1.8 - 2 .6 mg/dL [facility] No Panel Informationon 12-08 [facility] PHOSPHORUSon 12-09-2023 Phosphate [Mass/Vol] 3.7 mg/dL Normal 2.4-4.9 [facility] Comment on above: Performed By: #### C MP, 2777-1, , CBCA ####[facility] ([id number])5200 [place] [address] Phosphoruson 12-09-2023 Phosphate [Mass/Vol] 3.7 mg/dL 2.4 - 4 .9 mg/dL [facility] Bacteria identified Aer cx N om (Bld)on 12-08-2023 Service comment (Unsp spec) [Interp] SUBOPTIMAL VOLUME OF BLOOD COLLECTED, RESULTS MAY BE AFFECTED. [facility] Service comment (Unsp spec) [Interp] NO GROWTH 5 DAYS [facility] Service comment (Unsp spec) [Interp] SUBOPTIMAL VOLUME OF BLOOD COLLECTED, RESULTS MAY BE AFFECTED. [facility] Service comment (Unsp spec) [Interp] NO GROWTH [address] [facility] CBC AND AUTO DIFFon 12-08-19 ABSOLUTE BASOPHIL 0.0 X10E9/L Normal 0.0-0.2 [facility] Comment on above: Performed By: #### 2 777-1, CMP, CBCA, ####[facility] ([id number])5200 [place] [address] Basophils/100 WBC (Bld) 1.0 % Normal [facility] Comment on above: Performed By: #### 2 777-1, CMP, CBCA, ####[facility] ([id number])5200 [place] [address] Eosinophils (Bld) [#/Vol] 0.2 10*3/uL Normal 0.0-0.4 [facility] Comment on above: Performed By: #### 2 777-1, CMP, CBCA, ####[facility] ([id number])5200 [place] [address] Eosinophils/100 WBC (Bld) 7.0 % Normal [facility] Comment on above: Performed By: #### 2 777-1, CMP, CBCA, ####[facility] ([id number])5[address] [place] [address] Erythrocyte distribution width (RBC) [Ratio] 14.4 % Normal 11.5-15.0 [facility] Comment on above: Performed By: #### 2 777-1, CMP, CBCA, ####[facility] ([id number])5200 [facility] [place] [address] Hematocrit (Bld) [Volume fraction] 23.1 % Low 35-47 [facility] Comment on above: Performed By: #### 2 777-1, CMP, CBCA, ####[facility] ([id number])5200 [facility] [place] [address] Hemoglobin (Bld) [Mass/Vol] 8.1 g/dL Low 11.7-15.5 [facility] Comment on above: Performed By: #### 2 777-1, CMP, CBCA, ####[facility] ([id number])5200 [facility] [place] [address] Lymphocytes (Bld) [#/Vol] 0.4 10*3/uL Low 1.0-3.5 [facility] Comment on above: Performed By: #### 2 777-1, CMP, CBCA, ####[facility] ([id number])5200 [facility] [place] [address] Lymphocytes/100 WBC (Bld) 14.0 % Normal [facility] Comment on above: Performed By: #### 2 777-1, CMP, CBCA, ####[facility] ([id number])5200 [facility] [place] [address] MCH (RBC) [Entitic mass] 31.1 pg Normal 27-34 [facility] Comment on above: Performed By: #### 2 777-1, CMP, CBCA, ####[facility] ([id number])5200 [facility] [place] [address] MCHC (RBC) [Mass/Vol] 35.1 g/dL Normal 32-36 [facility] Comment on above: Performed By: #### 2 777-1, CMP, CBCA, ####[facility] ([id number])5200 [place] [address] MCV (RBC) [Entitic vol] 89 fL Normal 80-100 [facility] Comment on above: Performed By: #### 2 777-1, CMP, CBCA, ####[facility] ([id number])5200 [facility] [place] [address] Monocytes (Bld) [#/Vol] 0.3 10*3/uL Normal 0-0.9 [facility] Comment on above: Performed By: #### 2 777-1, CMP, CBCA, ####[facility] ([id number])5200 [facility] [place] [address] Monocytes/100 WBC (Bld) 9.0 % Normal [facility] Comment on above: Performed By: #### 2 777-1, CMP, CBCA, ####[facility] ([id number])5200 [facility] [place] [address] Neutrophils (Bld) [#/Vol] 2.0 10*3/uL Normal 1.5-6.6 [facility] Comment on above: Performed By: #### 2 777-1, CMP, CBCA, ####[facility] ([id number])5200 [facility] [place] [address] Platelet mean volume (Bld) [Entitic vol] 7.5 fL Normal 7-12 [facility] Comment on above: Performed By: #### 2 777-1, CMP, CBCA, ####[facility] ([id number])5200 [facility] [place] [address] Platelets (Bld) [#/Vol] 147 10*3/uL Low 150-450 [facility] Comment on above: Performed By: #### 2 777-1, CMP, CBCA, ####[facility] ([id number])5200 [facility] [place] [address] RBC COUNT 2.61 X10E12/L Low 3.80-5.20 [facility] Comment on above: Performed By: #### 2 777-1, CMP, CBCA, ####[facility] ([id number])5200 [facility] [place] [address] RBC morphology finding Nom (Bld) REVIEWED Normal [facility] Comment on above: Performed By: #### 2 777-1, CMP, CBCA, ####[facility] ([id number])5200 [facility] [place] [address] SEG NEUTROPHIL 69.0 % Normal [facility] Comment on above: Performed By: #### 2 777-1, CMP, CBCA, ####[facility] ([id number])5200 [facility] [place] [address] WBC (Bld) [#/Vol] 2.9 10*3/uL Low 4.0-11.0 [facility] Comment on above: Performed By: #### 2 777-1, CMP, CBCA, ####[facility] ([id number])5200 [facility] [place] [address] CBC auto differentialon 10-0 -2023 Basophils (Bld) [#/Vol] 0.0 10*3/uL [facility] Basophils/100 WBC (Bld) 1.0 % [...] 8.1 g/dL Low 11.7 - 15.5 g/dL [facility] Interpretation and review of laboratory results Abnormal [facility] Lymphocytes (Bld) [#/Vol] 0.4 10*3/uL Low [facility] Lymphocytes/100 WBC (Bld) 14.0 % [facility] MCH (RBC) [Entitic mass] 31.1 pg 27 - 34 pg [facility] MCHC (RBC) [Mass/Vol] 35.1 g/dL 32 - 36 g/dL [facility] MCV (RBC) [Entitic vol] 89 fL 80 - 100 fL [facility] Monocytes (Bld) [#/Vol] 0.3 10*3/uL [facility] Monocytes/100 WBC (Bld) 9.0 % [facility] Neutrophils (Bld) [#/Vol] 2.0 10*3/uL [facility] Platelet mean volume (Bld) [Entitic vol] 7.5 fL 7 - 12 fL [facility] Platelets (Bld) [#/Vol] 147 10*3/uL Low [facility] Polymorphonuclear cells/100 WBC (Bld) REVIEWED [facility] RBC (Bld) [#/Vol] 2.61 10*6/uL Low [facility] Segmented neutrophils/100 WBC (Bld) 69.0 % [facility] WBC corrected for nucl RBC Auto (Bld) [#/Vol] 2.9 Low [facility] COMPREHENSIVE METABOLIC PANE [place] 12-08-2023 Albumin [Mass/Vol] 3.2 g/dL Normal 3.2-5.3 [facility] Comment on above: Performed By: #### 2 777-1, CMP, CBCA, 05847-7 ####[facility] ([id number])5200 [place] [address] ALP [Catalytic activity/Vol] 64 U/L Normal 39-130 [facility] Comment on above: Performed By: #### 2 777-1, CMP, CBCA, 86897-2 ####[facility] ([id number])5200 [place] [address] ALT [Catalytic activity/Vol] 18 U/L Normal 0-31 [facility] Comment on above: Performed By: #### 2 777-1, CMP, CBCA, ####[facility] ([id number])[address] [place] [address] Anion gap [Moles/Vol] 8 mmol/L Normal 5-15 [facility] Comment on above: Performed By: #### 2 777-1, CMP, CBCA, ####[facility] ([id number])[address] [place] [address] AST [Catalytic activity/Vol] 28 U/L Normal 0-41 [facility] Comment on above: Performed By: #### 2 777-1, CMP, CBCA, ####[facility] ([id number])[address] [place] [address] Bilirubin [Mass/Vol] 0.6 mg/dL Normal 0.3-1.2 [facility] Comment on above: Performed By: #### 2 777-1, CMP, CBCA, ####[facility] ([id number])[address] [place] [address] Calcium [Mass/Vol] 8.7 mg/dL Normal 8.5-10.5 [facility] Comment on above: Performed By: #### 2 777-1, CMP, CBCA, ####[facility] ([id number])[address] [place] [address] Chloride [Moles/Vol] 101 mmol/L Normal 98-109 [facility] Comment on above: Performed By: #### 2 777-1, CMP, CBCA, ####[facility] ([id number])[address] [place] [address] CO2 [Moles/Vol] 27 mmol/L Normal 22-32 [facility] Comment on above: Performed By: #### 2 777-1, CMP, CBCA, ####[facility] ([id number])5[address] [place] [address] Creatinine [Mass/Vol] 1.89 mg/dL High 0.40-1.00 [facility] Comment on above: Result Comment: METH OD TRACEABLE TO IDMS STANDARD Performed By: #### 2 777-1, CMP, CBCA, ####[facility] ([id number])5200 [facility] [place] [address] GFR/1.73 sq M.predicted among non-blacks MDRD (S/P/Bld) [Vol rate/Area] 31 mL/min/{1.73_m2} Low >59 [facility] Comment on above: Result Comment: Repo rted eGFR is based on theCKD-EPI 2020 equation that doesnot use a race coefficient. Performed By: #### 2 777-1, CMP, CBCA, ####[facility] ([id number])5200 [facility] [place] [address] Glucose [Mass/Vol] 99 mg/dL Normal 65-99 [facility] Comment on above: Performed By: #### 2 777-1, CMP, CBCA, ####[facility] ([id number])5200 [facility] [place] [address] Potassium [Moles/Vol] 3.2 mmol/L Low 3.5-5.0 [facility] Comment on above: Performed By: #### 2 777-1, CMP, CBCA, ####[facility] ([id number])5200 [facility] [place] [address] Protein [Mass/Vol] 5.6 g/dL Low 6.0-8.0 [facility] Comment on above: Performed By: #### 2 777-1, CMP, CBCA, ####[facility] ([id number])5200 [facility] [place] [address] Sodium [Moles/Vol] 136 mmol/L Normal 134-146 [facility] Comment on above: Performed By: #### 2 777-1, CMP, CBCA, ####[facility] ([id number])5200 [facility] [place] [address] Urea nitrogen [Mass/Vol] 24 mg/dL High 5-23 [facility] Comment on above: Performed By: #### 2 777-1, CMP, CBCA, ####[facility] ([id number])5200 [facility] [place] [address] Comprehensive metabolic pane rome 12-08-2023 Albumin [Mass/Vol] 3.2 g/dL 3.2 - 5.3 g/dL [facility] ALP [Catalytic activity/Vol] 64 U/L 39 - 130 U/L [facility] ALT No additional P-5'-P [Catalytic activity/Vol] 18 U/L 0 - 31 U/L [facility] Anion gap [Moles/Vol] 8 mmol/L 5 - 15 mmol/L [facility] AST [Catalytic activity/Vol] 28 U/L 0 - 41 U/L [facility] Bilirubin [Mass/Vol] 0.6 mg/dL 0.3 - 1 .2 mg/dL [facility] Calcium [Mass/Vol] 8.7 mg/dL 8.5 - 10. 5 mg/dL [facility] Chloride [Moles/Vol] 101 mmol/L 98 - 10 9 mmol/L [facility] CO2 [Moles/Vol] 27 mmol/L 22 - 32 mmol/L [facility] Creatinine [Mass/Vol] 1.89 mg/dL High 0.40 - 1.00 mg/dL [facility] Comment on above: METHOD TRACEABLE TO [facility] STANDARD eGFR (CKD-EPI)non-race dependent 31 Low - PINF [facility] Comment on above: Reported eGFR is based on the CKD-EPI 2020 equation that does not use a race coefficient. Glucose [Mass/Vol] 99 mg/dL 65 - 99 mg/dL [facility] Potassium [Moles/Vol] 3.2 mmol/L Low 3.5 - 5.0 mmol/L [facility] Protein [Mass/Vol] 5.6 g/dL Low 6.0 - 8.0 g/dL [facility] Sodium [Moles/Vol] 136 mmol/L 134 - 146 mmol/L [facility] Urea nitrogen [Mass/Vol] 24 mg/dL High 5 - 23 mg/dL [facility] MAGNESIUMon 12-08-2023 Magnesium [Mass/Vol] 2.5 mg/dL Normal 1.8-2.6 [facility] Comment on above: Performed By: #### 2 823-3, ####[facility] ([id number])5200 [facility] [place] [address] Magnesium [Mass/Vol] 1.5 mg/dL Low 1.8-2.6 [facility] Comment on above: Performed By: #### 2 777-1, CMP, CBCA, ####[facility] ([id number])5200 [facility] [place] [address] Magnesiumon 12-08-2023 Magnesium [Mass/Vol] 2.5 mg/dL 1.8 - 2 .6 mg/dL [facility] Magnesium [Mass/Vol] 1.5 mg/dL Low 1.8 - 2 .6 mg/dL [facility] No Panel Informationon 12-07 [facility] Interpretation and review of laboratory results Abnormal [facility] PHOSPHORUSon 12-08-2023 Phosphate [Mass/Vol] 4.1 mg/dL Normal 2.4-4.9 [facility] Comment on above: Performed By: #### 2 777-1, CMP, CBCA, ####[facility] ([id number])5[address] [place] [address] POTASSIUMon 12-08-2023 Potassium [Moles/Vol] 3.8 mmol/L Normal 3.5-5.0 [facility] Comment on above: Performed By: #### 2 823-3 ####[facility] MAIN LAB ([id number])5200 [place] [address] Potassium [Moles/Vol] 3.3 mmol/L Low 3.5-5.0 [facility] Comment on above: Performed By: #### 2 823-3, ####[facility] MAIN LAB ([id number])5200 [place] [address] Phosphoruson 12-08-2023 Phosphate [Mass/Vol] 4.1 mg/dL 2.4 - 4 .9 mg/dL [facility] Potassiumon 12-08-2023 Potassium [Moles/Vol] 3.8 mmol/L 3.5 - 5.0 mmol/L [facility] Potassium [Moles/Vol] 3.3 mmol/L Low 3.5 - 5.0 mmol/L [facility] Potassium [Moles/Vol]on [facility] Interpretation and review of laboratory results Abnormal [facility] CBC AND AUTO DIFFon 12-07-19 24 ABSOLUTE BASOPHIL 0.0 X10E9/L Normal 0.0-0.2 [facility] Comment on above: Performed By: #### C MP, CBCA, 2776-03, ####[facility] MAIN LAB ([id number])5200 [facility] [place] [address] ABSOLUTE NEUTROPHIL 1.6 X10E9/L Normal 1.5-6.6 [facility] Comment on above: Performed By: #### C MP, CBCA, 2776-03, ####[facility] MAIN LAB ([id number])5200 [facility] [place] [address] Basophils/100 WBC (Bld) 0.7 % Normal [facility] Comment on above: Performed By: #### C MP, CBCA, 2776-03, ####[facility] MAIN LAB ([id number])5200 [place] [address] Eosinophils (Bld) [#/Vol] 0.2 10*3/uL Normal 0.0-0.4 [facility] Comment on above: Performed By: #### C MP, CBCA, 2776-03, ####[facility] MAIN LAB ([id number])5200 [facility] [place] [address] Eosinophils/100 WBC (Bld) 7.0 % Normal [facility] Comment on above: Performed By: #### C MP, CBCA, 2776-03, ####[facility] MAIN LAB ([id number])5200 [place] [address] Erythrocyte distribution width (RBC) [Ratio] 14.2 % Normal 11.5-15.0 [facility] Comment on above: Performed By: #### C MP, CBCA, 2776-03, ####[facility] LAB ([id number])5200 [place] [address] Hematocrit (Bld) [Volume fraction] 22.3 % Low 35-47 [facility] Comment on above: Performed By: #### C MP, CBCA, 2776-03, ####[facility] MAIN LAB ([id number])5200 [place] [address] Hemoglobin (Bld) [Mass/Vol] 7.8 g/dL Low 11.7-15.5 [facility] Comment on above: Performed By: #### C MP, CBCA, 2776-03, ####[facility] MAIN LAB ([id number])5200 [place] [address] Lymphocytes (Bld) [#/Vol] 0.5 10*3/uL Low 1.0-3.5 [facility] Comment on above: Performed By: #### C MP, CBCA, 2776-03, ####[facility] MAIN LAB ([id number])5200 [place] [address] Lymphocytes/100 WBC (Bld) 19.6 % Normal [facility] Comment on above: Performed By: #### C MP, CBCA, 2776-03, ####[facility] MAIN LAB ([id number])5[address] [place] [address] MCH (RBC) [Entitic mass] 30.9 pg Normal 27-34 [facility] Comment on above: Performed By: #### C MP, CBCA, 2776-03, ####[facility] MAIN LAB ([id number])5200 [facility] [place] [address] MCHC (RBC) [Mass/Vol] 34.9 g/dL Normal 32-36 [facility] Comment on above: Performed By: #### C MP, CBCA, 2776-03, ####[facility] LAB ([id number])5200 [facility] [place] [address] MCV (RBC) [Entitic vol] 88 fL Normal 80-100 [facility] Comment on above: Performed By: #### C MP, CBCA, 2776-03, ####[facility] LAB ([id number])5200 [facility] [place] [address] Monocytes (Bld) [#/Vol] 0.3 10*3/uL Normal 0-0.9 [facility] Comment on above: Performed By: #### C MP, CBCA, 2776-03, ####[facility] LAB ([id number])5200 [facility] [place] [address] Monocytes/100 WBC (Bld) 12.5 % Normal [facility] Comment on above: Performed By: #### C MP, CBCA, 2776-03, ####[facility] LAB ([id number])5200 [place] [address] Neutrophils/100 WBC (Bld) 60.2 % Normal [facility] Comment on above: Performed By: #### C MP, CBCA, 2776-03, ####[facility] MAIN LAB ([id number])5200 [facility] [place] [address] Platelet mean volume (Bld) [Entitic vol] 6.9 fL Low 7-12 [facility] Comment on above: Performed By: #### C MP, CBCA, 2776-03, ####[facility] MAIN LAB ([id number])5200 [facility] [place] [address] Platelets (Bld) [#/Vol] 150 10*3/uL Normal 150-450 [facility] Comment on above: Performed By: #### C MP, CBCA, 2776-03, ####[facility] MAIN LAB ([id number])5200 [facility] [place] [address] RBC COUNT 2.52 X10E12/L Low 3.80-5.20 [facility] Comment on above: Performed By: #### C MP, CBCA, 2776-03, ####[facility] MAIN LAB ([id number])5200 [facility] [place] [address] WBC (Bld) [#/Vol] 2.7 10*3/uL Low 4.0-11.0 [facility] Comment on above: Performed By: #### C MP, CBCA, 2776-03, ####[facility] MAIN LAB ([id number])5200 [facility] [place] [address] CBC auto differentialon 10-0 -2023 Basophils (Bld) [#/Vol] 0.0 10*3/uL [facility] Basophils/100 WBC (Bld) 0.7 % [facility] Eosinophils (Bld) [#/Vol] 0.2 10*3/uL [facility] Eosinophils/100 WBC (Bld) 7.0 % [facility] Erythrocyte distribution width (RBC) [Ratio] 14.2 % 11.5 - 15.0 % [facility] Hematocrit (Bld) [Volume fraction] 22.3 % Low 35 - 47 % [facility] Hemoglobin (Bld) [Mass/Vol] 7.8 g/dL Low 11.7 - 15.5 g/dL [facility] Interpretation and review of laboratory results Abnormal [facility] Lymphocytes (Bld) [#/Vol] 0.5 10*3/uL Low [facility] Lymphocytes/100 WBC (Bld) 19.6 % [facility] MCH (RBC) [Entitic mass] 30.9 pg 27 - 34 pg [facility] MCHC (RBC) [Mass/Vol] 34.9 g/dL 32 - 36 g/dL [facility] MCV (RBC) [Entitic vol] 88 fL 80 - 100 fL [facility] Monocytes (Bld) [#/Vol] 0.3 10*3/uL [facility] Monocytes/100 WBC (Bld) 12.5 % [facility] Neutrophils (Bld) [#/Vol] 1.6 10*3/uL [facility] Neutrophils/100 WBC (Bld) 60.2 % [facility] Platelet mean volume (Bld) [Entitic vol] 6.9 fL Low 7 - 12 fL [facility] Platelets (Bld) [#/Vol] 150 10*3/uL [facility] RBC (Bld) [#/Vol] 2.52 10*6/uL Low [facility] WBC corrected for nucl RBC Auto (Bld) [#/Vol] 2.7 Low [facility] COMPREHENSIVE METABOLIC PANE [place] 12-07-2023 Albumin [Mass/Vol] 3.1 g/dL Low 3.2-5.3 [facility] Comment on above: Performed By: #### C ADARSH, CBCA, 2776-03, ####[facility] MAIN LAB ([id number])5[address] [place] [address] ALP [Catalytic activity/Vol] 56 U/L Normal 39-130 [facility] Comment on above: Performed By: #### C ADARSH, CBCA, 2776-03, ####[facility] MAIN LAB ([id number])5[address] [place] [address] ALT [Catalytic activity/Vol] 13 U/L Normal 0-31 [facility] Comment on above: Performed By: #### C ADARSH, CBCA, 2776-03, ####[facility] MAIN LAB ([id number])[address] [place] [address] Anion gap [Moles/Vol] 8 mmol/L Normal 5-15 [facility] Comment on above: Performed By: #### C ADARSH, CBCA, 2776-03, ####[facility] MAIN LAB ([id number])5[address] [place] [address] AST [Catalytic activity/Vol] 22 U/L Normal 0-41 [facility] Comment on above: Performed By: #### C ADARSH, CBCA, 2776-03, ####[facility] MAIN LAB ([id number])[address] [place] [address] Bilirubin [Mass/Vol] 0.5 mg/dL Normal 0.3-1.2 [facility] Comment on above: Performed By: #### C ADARSH, CBCA, 2776-03, ####[facility] MAIN LAB ([id number])5[address] [place] [address] Calcium [Mass/Vol] 8.8 mg/dL Normal 8.5-10.5 [facility] Comment on above: Performed By: #### C ADARSH, CBCA, 2776-03, ####[facility] MAIN LAB ([id number])[address] [place] [address] Chloride [Moles/Vol] 102 mmol/L Normal 98-109 [facility] Comment on above: Performed By: #### C MP, CBCA, 2776-03, ####[facility] MAIN LAB ([id number])[address] [place] [address] CO2 [Moles/Vol] 28 mmol/L Normal 22-32 [facility] Comment on above: Performed By: #### C MP, CBCA, 2776-03, ####[facility] MAIN LAB ([id number])[address] [place] [address] Creatinine [Mass/Vol] 2.07 mg/dL High 0.40-1.00 [facility] Comment on above: Result Comment: METH OD TRACEABLE TO IDMS STANDARD Performed By: #### C OFE ALTAMIRANO, 2776-03, ####[facility] MAIN LAB ([id number])5[address] [place] [address] GFR/1.73 sq M.predicted among non-blacks MDRD (S/P/Bld) [Vol rate/Area] 28 mL/min/{1.73_m2} Low >59 [facility] Comment on above: Result Comment: Repo rted eGFR is based on theCKD-EPI 2020 equation that doesnot use a race coefficient. Performed By: #### C OFE ALTAMIRANO, 2776-03, ####[facility] MAIN LAB ([id number])5200 [facility] [place] [address] Glucose [Mass/Vol] 99 mg/dL Normal 65-99 [facility] Comment on above: Performed By: #### C OFE ALTAMIRANO, 2776-03, ####[facility] MAIN LAB ([id number])5200 [facility] [place] [address] Potassium [Moles/Vol] 3.3 mmol/L Low 3.5-5.0 [facility] Comment on above: Performed By: #### C OFE ALTAMIRANO, 2776-03, ####[facility] MAIN LAB ([id number])5200 [facility] [place] [address] Protein [Mass/Vol] 5.6 g/dL Low 6.0-8.0 [facility] Comment on above: Performed By: #### C OFE ALTAMIRANO, 2776-03, ####[facility] MAIN LAB ([id number])5200 [facility] [place] [address] Sodium [Moles/Vol] 138 mmol/L Normal 134-146 [facility] Comment on above: Performed By: #### C OFE ALTAMIRANO, 2776-03, ####[facility] MAIN LAB ([id number])5200 [place] [address] Urea nitrogen [Mass/Vol] 27 mg/dL High 5-23 [facility] Comment on above: Performed By: #### C ADRASH, CBCA, 2776-03, ####[facility] MAIN LAB ([id number])5200 [place] [address] Comprehensive metabolic pane [facility] 12-07-2023 Albumin [Mass/Vol] 3.1 g/dL Low 3.2 - 5.3 g/dL [facility] ALP [Catalytic activity/Vol] 56 U/L 39 - 130 U/L [facility] ALT No additional P-5'-P [Catalytic activity/Vol] 13 U/L 0 - 31 U/L [facility] Anion gap [Moles/Vol] 8 mmol/L 5 - 15 mmol/L [facility] AST [Catalytic activity/Vol] 22 U/L 0 - 41 U/L [facility] Bilirubin [Mass/Vol] 0.5 mg/dL 0.3 - 1 .2 mg/dL [facility] Calcium [Mass/Vol] 8.8 mg/dL 8.5 - 10. 5 mg/dL [facility] Chloride [Moles/Vol] 102 mmol/L 98 - 10 9 mmol/L [facility] CO2 [Moles/Vol] 28 mmol/L 22 - 32 mmol/L [facility] Creatinine [Mass/Vol] 2.07 mg/dL High 0.40 - 1.00 mg/dL [facility] Comment on above: METHOD TRACEABLE TO IDGA STANDARD eGFR (CKD-EPI)non-race dependent 28 Low - PINF [facility] Comment on above: Reported eGFR is based on the CKD-EPI 2020 equation that does not use a race coefficient. Glucose [Mass/Vol] 99 mg/dL 65 - 99 mg/dL [facility] Potassium [Moles/Vol] 3.3 mmol/L Low 3.5 - 5.0 mmol/L [facility] Protein [Mass/Vol] 5.6 g/dL Low 6.0 - 8.0 g/dL [facility] Sodium [Moles/Vol] 138 mmol/L 134 - 146 mmol/L [facility] Urea nitrogen [Mass/Vol] 27 mg/dL High 5 - 23 mg/dL [facility] MAGNESIUMon 12-07-2023 Magnesium [Mass/Vol] 2.0 mg/dL Normal 1.8-2.6 [facility] Comment on above: Performed By: #### C MP, CBCA, 2776-03, ####[facility] MAIN LAB ([id number])5200 [facility] [place] [address] Magnesiumon 12-07-2023 Magnesium [Mass/Vol] 2.0 mg/dL 1.8 - 2 .6 mg/dL [facility] No Panel Informationon 12-06 Interpretation and review of laboratory results Abnormal [facility] PHOSPHORUSon 12-07-2023 Phosphate [Mass/Vol] 5.4 mg/dL High 2.4-4.9 [facility] Comment on above: Performed By: #### C MP, CBCA, 27708-30, ####[facility] MAIN LAB ([id number])5200 [facility] [place] [address] Phosphoruson 12-07-2023 Phosphate [Mass/Vol] 5.4 mg/dL High 2.4 - 4 .9 mg/dL [facility] CBC AND AUTO DIFFon 12-06-19 24 ABSOLUTE BASOPHIL 0.0 X10E9/L Normal 0.0-0.2 [facility] Comment on above: Performed By: #### 2 777-1, CBCA, CMP, ####[facility] MAIN LAB ([id number])5200 [facility] [place] [address] ABSOLUTE NEUTROPHIL 1.9 X10E9/L Normal 1.5-6.6 [facility] Comment on above: Performed By: #### 2 777-1, CBCA, CMP, ####[facility] MAIN LAB ([id number])5200 [facility] [place] [address] Basophils/100 WBC (Bld) 0.5 % Normal [facility] Comment on above: Performed By: #### 2 777-1, CBCA, CMP, ####[facility] LAB ([id number])5200 [place] [address] Eosinophils (Bld) [#/Vol] 0.2 10*3/uL Normal 0.0-0.4 [facility] Comment on above: Performed By: #### 2 777-1, CBCA, CMP, ####[facility] LAB ([id number])5200 [place] [address] Eosinophils/100 WBC (Bld) 7.7 % Normal [facility] Comment on above: Performed By: #### 2 777-1, CBCA, CMP, ####[facility] LAB ([id number])5200 [place] [address] Erythrocyte distribution width (RBC) [Ratio] 14.1 % Normal 11.5-15.0 [facility] Comment on above: Performed By: #### 2 777-1, CBCA, CMP, ####[facility] LAB ([id number])5200 [place] [address] Hematocrit (Bld) [Volume fraction] 23.0 % Low 35-47 [facility] Comment on above: Performed By: #### 2 777-1, CBCA, CMP, ####[facility] ([id number])5200 [place] [address] Hemoglobin (Bld) [Mass/Vol] 7.8 g/dL Low 11.7-15.5 [facility] Comment on above: Performed By: #### 2 777-1, CBCA, CMP, ####[facility] ([id number])5200 [place] [address] Lymphocytes (Bld) [#/Vol] 0.4 10*3/uL Low 1.0-3.5 [facility] Comment on above: Performed By: #### 2 777-1, CBCA, CMP, ####[facility] ([id number])5[address] [place] [address] Lymphocytes/100 WBC (Bld) 13.8 % Normal [facility] Comment on above: Performed By: #### 2 777-1, CBCA, CMP, ####[facility] ([id number])5200 [facility] [place] [address] MCH (RBC) [Entitic mass] 30.3 pg Normal 27-34 [facility] Comment on above: Performed By: #### 2 777-1, CBCA, CMP, ####[facility] ([id number])5200 [facility] [place] [address] MCHC (RBC) [Mass/Vol] 34.0 g/dL Normal 32-36 [facility] Comment on above: Performed By: #### 2 777-1, CBCA, CMP, ####[facility] ([id number])5200 [facility] [place] [address] MCV (RBC) [Entitic vol] 89 fL Normal 80-100 [facility] Comment on above: Performed By: #### 2 777-1, CBCA, CMP, ####[facility] ([id number])5200 [facility] [place] [address] Monocytes (Bld) [#/Vol] 0.4 10*3/uL Normal 0-0.9 [facility] Comment on above: Performed By: #### 2 777-1, CBCA, CMP, ####[facility] ([id number])5200 [facility] [place] [address] Monocytes/100 WBC (Bld) 14.0 % Normal [facility] Comment on above: Performed By: #### 2 777-1, CBCA, CMP, ####[facility] ([id number])5[address] [place] [address] Neutrophils/100 WBC (Bld) 64.0 % Normal [facility] Comment on above: Performed By: #### 2 777-1, CBCA, CMP, ####[facility] ([id number])5[address] [place] [address] Platelet mean volume (Bld) [Entitic vol] 6.7 fL Low 7-12 [facility] Comment on above: Performed By: #### 2 777-1, CBCA, CMP, ####[facility] ([id number])5200 [facility] [place] [address] Platelets (Bld) [#/Vol] 172 10*3/uL Normal 150-450 [facility] Comment on above: Performed By: #### 2 777-1, CBCA, CMP, ####[facility] ([id number])5200 [facility] [place] [address] RBC COUNT 2.58 X10E12/L Low 3.80-5.20 [facility] Comment on above: Performed By: #### 2 777-1, CBCA, CMP, ####[facility] ([id number])5200 [facility] [place] [address] WBC (Bld) [#/Vol] 3.0 10*3/uL Low 4.0-11.0 [facility] Comment on above: Performed By: #### 2 777-1, CBCA, CMP, ####[facility] ([id number])5200 [facility] [place] [address] CBC auto differentialon 10-0 Basophils (Bld) [#/Vol] 0.0 10*3/uL [facility] Basophils/100 WBC (Bld) 0.5 % [facility] Eosinophils (Bld) [#/Vol] 0.2 10*3/uL [facility] Eosinophils/100 WBC (Bld) 7.7 % [facility] Erythrocyte distribution width (RBC) [Ratio] 14.1 % 11.5 - 15.0 % [facility] Hematocrit (Bld) [Volume fraction] 23.0 % Low 35 - 47 % [facility] Hemoglobin (Bld) [Mass/Vol] 7.8 g/dL Low 11.7 - 15.5 g/dL [facility] Interpretation and review of laboratory results Abnormal [facility] Lymphocytes (Bld) [#/Vol] 0.4 10*3/uL Low [facility] Lymphocytes/100 WBC (Bld) 13.8 % [facility] MCH (RBC) [Entitic mass] 30.3 pg 27 - 34 pg [facility] MCHC (RBC) [Mass/Vol] 34.0 g/dL 32 - 36 g/dL [facility] MCV (RBC) [Entitic vol] 89 fL 80 - 100 fL [facility] Monocytes (Bld) [#/Vol] 0.4 10*3/uL [facility] Monocytes/100 WBC (Bld) 14.0 % [facility] Neutrophils (Bld) [#/Vol] 1.9 10*3/uL [facility] Neutrophils/100 WBC (Bld) 64.0 % [facility] Platelet mean volume (Bld) [Entitic vol] 6.7 fL Low 7 - 12 fL [facility] Platelets (Bld) [#/Vol] 172 10*3/uL [facility] RBC (Bld) [#/Vol] 2.58 10*6/uL Low [facility] WBC corrected for nucl RBC Auto (Bld) [#/Vol] 3.0 Low [facility] COMPREHENSIVE METABOLIC PANE [place] 12-06-2023 Albumin [Mass/Vol] 3.3 g/dL Normal 3.2-5.3 [facility] Comment on above: Performed By: #### 2 777-1, CBCA, CMP, 36257-9 ####[facility] MAIN LAB ([id number])5200 [place] [address] ALP [Catalytic activity/Vol] 55 U/L Normal 39-130 [facility] Comment on above: Performed By: #### 2 777-1, CBCA, CMP, ####[facility] MA[facility] LAB ([id number])5[address] [place] [address] ALT [Catalytic activity/Vol] 9 U/L Normal 0-31 [facility] Comment on above: Performed By: #### 2 777-1, CBCA, CMP, 65774-3 ####[facility] ([id number])[address] [place] [address] Anion gap [Moles/Vol] 9 mmol/L Normal 5-15 [facility] Comment on above: Performed By: #### 2 777-1, CBCA, CMP, ####[facility] ([id number])[address] [place] [address] AST [Catalytic activity/Vol] 16 U/L Normal 0-41 [facility] Comment on above: Performed By: #### 2 777-1, CBCA, CMP, ####[facility] ([id number])[address] [place] [address] Bilirubin [Mass/Vol] 0.5 mg/dL Normal 0.3-1.2 [facility] Comment on above: Performed By: #### 2 777-1, CBCA, CMP, ####[facility] ([id number])[address] [place] [address] Calcium [Mass/Vol] 9.0 mg/dL Normal 8.5-10.5 [facility] Comment on above: Performed By: #### 2 777-1, CBCA, CMP, ####[facility] ([id number])[address] [place] [address] Chloride [Moles/Vol] 102 mmol/L Normal 98-109 [facility] Comment on above: Performed By: #### 2 777-1, CBCA, CMP, ####[facility] ([id number])[address] [place] [address] CO2 [Moles/Vol] 26 mmol/L Normal 22-32 [facility] Comment on above: Performed By: #### 2 777-1, CBCA, CMP, ####[facility] ([id number])[address] [place] [address] Creatinine [Mass/Vol] 2.34 mg/dL High 0.40-1.00 [facility] Comment on above: Result Comment: METH OD TRACEABLE TO IDMS STANDARD Performed By: #### 2 777-1, CBCA, CMP, ####[facility] ([id number])5[address] [place] [address] GFR/1.73 sq M.predicted among non-blacks MDRD (S/P/Bld) [Vol rate/Area] 24 mL/min/{1.73_m2} Low >59 [facility] Comment on above: Result Comment: Repo rted eGFR is based on theCKD-EPI 2020 equation that doesnot use a race coefficient. Performed By: #### 2 777-1, CBCA, CMP, ####[facility] ([id number])5[address] [place] [address] Glucose [Mass/Vol] 100 mg/dL High 65-99 [facility] Comment on above: Performed By: #### 2 777-1, CBCA, CMP, ####[facility] ([id number])[address] [place] [address] Potassium [Moles/Vol] 3.5 mmol/L Normal 3.5-5.0 [facility] Comment on above: Performed By: #### 2 777-1, CBCA, CMP, ####[facility] ([id number])[address] [place] [address] Protein [Mass/Vol] 5.8 g/dL Low 6.0-8.0 [facility] Comment on above: Performed By: #### 2 777-1, CBCA, CMP, 74707-7 ####[facility] ([id number])5200 [facility] [place] [address] Sodium [Moles/Vol] 137 mmol/L Normal 134-146 [facility] Comment on above: Performed By: #### 2 777-1, CBCA, CMP, 36557-8 ####[facility] ([id number])5[address] [place] [address] Urea nitrogen [Mass/Vol] 21 mg/dL Normal 5-23 [facility] Comment on above: Performed By: #### 2 777-1, CBCA, CMP, ####[facility] ([id number])5[address] [place] [address] Comprehensive metabolic pane rome 12-06-2023 Albumin [Mass/Vol] 3.3 g/dL 3.2 - 5.3 g/dL [facility] ALP [Catalytic activity/Vol] 55 U/L 39 - 130 U/L [facility] ALT No additional P-5'-P [Catalytic activity/Vol] 9 U/L 0 - 31 U/L [facility] Anion gap [Moles/Vol] 9 mmol/L 5 - 15 mmol/L [facility] AST [Catalytic activity/Vol] 16 U/L 0 - 41 U/L [facility] Bilirubin [Mass/Vol] 0.5 mg/dL 0.3 - 1 .2 mg/dL [facility] Calcium [Mass/Vol] 9.0 mg/dL 8.5 - 10. 5 mg/dL [facility] Chloride [Moles/Vol] 102 mmol/L 98 - 10 9 mmol/L [facility] CO2 [Moles/Vol] 26 mmol/L 22 - 32 mmol/L [facility] Creatinine [Mass/Vol] 2.34 mg/dL High 0.40 - 1.00 mg/dL [facility] Comment on above: METHOD TRACEABLE TO IDGA STANDARD eGFR (CKD-EPI)non-race dependent 24 Low - PINF [facility] Comment on above: Reported eGFR is based on the CKD-EPI 2020 equation that does not use a race coefficient. Glucose [Mass/Vol] 100 mg/dL High 65 - 99 mg/dL [facility] Potassium [Moles/Vol] 3.5 mmol/L 3.5 - 5.0 mmol/L [facility] Protein [Mass/Vol] 5.8 g/dL Low 6.0 - 8.0 g/dL [facility] Sodium [Moles/Vol] 137 mmol/L 134 - 146 mmol/L [facility] Urea nitrogen [Mass/Vol] 21 mg/dL 5 - 23 mg/dL [facility] MAGNESIUMon 12-06-2023 Magnesium [Mass/Vol] 2.3 mg/dL Normal 1.8-2.6 [facility] Comment on above: Performed By: #### 1 9123-9 ####[facility] ([id number])5200 [facility] [place] [address] Magnesium [Mass/Vol] 1.5 mg/dL Low 1.8-2.6 [facility] Comment on above: Performed By: #### 2 777-1, CBCA, CMP, ####[facility] ([id number])5200 [facility] [place] [address] Magnesiumon 12-06-2023 Magnesium [Mass/Vol] 2.3 mg/dL 1.8 - 2 .6 mg/dL [facility] Magnesium [Mass/Vol] 1.5 mg/dL Low 1.8 - 2 .6 mg/dL [facility] Magnesium [Mass/Vol]on 12-05 [facility] No Panel Informationon 12-05 Interpretation and review of laboratory results Abnormal [facility] PHOSPHORUSon 12-06-2023 Phosphate [Mass/Vol] 5.0 mg/dL High 2.4-4.9 [facility] Comment on above: Performed By: #### 2 777-1, CBCA, CMP, 84794-8 ####[facility] ([id number])5200 [facility] [place] [address] Phosphoruson 12-06-2023 Phosphate [Mass/Vol] 5.0 mg/dL High 2.4 - 4 .9 mg/dL [facility] URINALYSISon 12-06-2023 Bilirubin Ql (U) Negative Normal NEG [facility] Comment on above: Performed By: #### U A ####[facility] ([id number])5200 [facility] [place] [address] BLOOD/HGB Negative Normal NEG [facility] Comment on above: Performed By: #### U A ####[facility] ([id number])[address] [place] [address] Color (U) YELLOW Normal YELLOW [facility] Comment on above: Performed By: #### U A ####[facility] ([id number])5200 [facility] [place] [address] Glucose Ql (U) Negative Normal NEG [facility] Comment on above: Performed By: #### U A ####[facility] ([id number])[address] [place] [address] Ketones Ql (U) Negative Normal NEG [facility] Comment on above: Performed By: #### U A ####[facility] ([id number])5[address] [place] [address] Leukocyte esterase Test strip Ql (U) Trace Abnormal NEG [facility] Comment on above: Performed By: #### U A ####[facility] ([id number])5200 [facility] [place] [address] Nitrite Ql (U) Negative Normal NEG [facility] Comment on above: Performed By: #### U A ####[facility] ([id number])[address] [place] [address] pH (U) 6.5 [pH] Normal 5.0-8.5 [facility] Comment on above: Performed By: #### U A ####[facility] ([id number])5200 [facility] [place] [address] Protein Ql (U) Negative Normal NEG [facility] Comment on above: Performed By: #### U A ####[facility] ([id number])5200 [place] [address] R.B.CELLS 1 /hpf Normal 0-5 [facility] Comment on above: Performed By: #### U A ####[facility] ([id number])5200 [place] [address] Specific gravity (U) [Rel density] 1.010 Normal 1.003-1.035 [facility] Comment on above: Performed By: #### U A ####[facility] ([id number])5200 [place] [address] SQUAMOUS EPITHELIUM 1 /hpf Normal 0-5 [facility] Comment on above: Performed By: #### U A ####[facility] ([id number])5200 [place] [address] TRANSITIONAL EPITH 1 /hpf High 0 [facility] Comment on above: Performed By: #### U A ####[facility] ([id number])5200 [place] [address] TURBIDITY CLEAR Normal CLEAR [facility] Comment on above: Performed By: #### U A ####[facility] ([id number])5[address] [place] [address] Urobilinogen Qn (U) 0.2 {Ansley'U}/dL Normal <1.1 [facility] Comment on above: Performed By: #### U A ####[facility] ([id number])5200 [place] [address] W.B.CELLS 3 /hpf Normal 0-5 [facility] Comment on above: Performed By: #### U A ####[facility] ([id number])5200 [facility] [place] [address] Urinalysison 12-06-2023 Bilirubin Ql (U) Negative Negative^Ne g ative [facility] Color (U) YELLOW YELLOW^YELLO W [facility] Epithelial cells Auto (Urine sed) [#/Area] 1 [facility] Epithelial cells.non-squamous LM.LPF (Urine sed) [#/Area] 1 High 0 /hpf [facility] Glucose (U) [Mass/Vol] Negative Negative^Neg ative mg/dL [facility] Hemoglobin Auto test strip Ql (U) Negative Negative^Neg ative [facility] Interpretation and review of laboratory results Abnormal [facility] Ketones (U) [Mass/Vol] Negative Negative^Neg ative mg/dL [facility] Leukocyte esterase Auto test strip Ql (U) Trace Abnormal Negative^Neg ative [facility] Nitrite Auto test strip Ql (U) Negative Negative^Neg ative [facility] pH (U) 6.5 [pH] 5.0 - 8.5 [facility] Protein (U) [Mass/Vol] Negative Negative^Neg ative mg/dL [facility] RBC Auto (Urine sed) [#/Area] 1 [facility] Specific gravity Refractometry automated (U) [Rel density] 1.010 1.003 - 1.035 [facility] Turbidity Ql (U) CLEAR CLEAR^CLEAR [facility] Urobilinogen Qn (U) 0.2 NINF [facility] WBC Auto (Urine sed) [#/Area] 3 [facility] BLOOD CULTUREon 12-05-2023 Bacteria identified Aer cx Nom (Bld) CULTURE RESULTS NO GROWTH 5 DAYS Normal [facility] Bacteria identified Aer cx Nom (Bld) CULTURE RESULTS NO GROWTH 5 DAYS Normal [facility] CBC AND AUTO DIFFon 12-05-19 24 ABSOLUTE BASOPHIL 0.0 X10E9/L Normal 0.0-0.2 [facility] Comment on above: Performed By: #### 1 9123-9, 2777-1, CBCA, CMP ####[facility] ([id number])5200 [place] [address] ABSOLUTE NEUTROPHIL 2.6 X10E9/L Normal 1.5-6.6 [facility] Comment on above: Performed By: #### 1 9122-10, 2776-03, CBCA, CMP ####[facility] ([id number])5[address] [place] [address] Basophils/100 WBC (Bld) 0.7 % Normal [facility] Comment on above: Performed By: #### 1 9122-10, 2776-03, CBCA, CMP ####[facility] ([id number])[address] [place] [address] Eosinophils (Bld) [#/Vol] 0.3 10*3/uL Normal 0.0-0.4 [facility] Comment on above: Performed By: #### 1 9122-10, 2776-03, CBCA, CMP ####[facility] ([id number])[address] [place] [address] Eosinophils/100 WBC (Bld) 8.8 % Normal [facility] Comment on above: Performed By: #### 1 9122-10, 2776-03, CBCA, CMP ####[facility] ([id number])[address] [place] [address] Erythrocyte distribution width (RBC) [Ratio] 13.8 % Normal 11.5-15.0 [facility] Comment on above: Performed By: #### 1 9122-10, 2776-03, CBCA, CMP ####[facility] ([id number])5200 [place] [address] Hematocrit (Bld) [Volume fraction] 22.2 % Low 35-47 [facility] Comment on above: Performed By: #### 1 9122-10, 2776-03, CBCA, CMP ####[facility] ([id number])5200 [place] [address] Hemoglobin (Bld) [Mass/Vol] 7.6 g/dL Low 11.7-15.5 [facility] Comment on above: Performed By: #### 1 9122-10, 2776-03, CBCA, CMP ####[facility] ([id number])5[address] [place] [address] Lymphocytes (Bld) [#/Vol] 0.5 10*3/uL Low 1.0-3.5 [facility] Comment on above: Performed By: #### 1 9123-9, 2776-03, CBCA, CMP ####[facility] ([id number])5[address] [place] [address] Lymphocytes/100 WBC (Bld) 11.8 % Normal [facility] Comment on above: Performed By: #### 1 9122-, 2776-03, CBCA, CMP ####[facility] ([id number])5[address] [place] [address] MCH (RBC) [Entitic mass] 30.5 pg Normal 27-34 [facility] Comment on above: Performed By: #### 1 9122-10, 2776-03, CBCA, CMP ####[facility] ([id number])5200 [facility] [place] [address] MCHC (RBC) [Mass/Vol] 34.4 g/dL Normal 32-36 [facility] Comment on above: Performed By: #### 1 91, 2776-03, CBCA, CMP ####[facility] ([id number])5[address] [place] [address] MCV (RBC) [Entitic vol] 89 fL Normal 80-100 [facility] Comment on above: Performed By: #### 1 9122-10, 2776-03, CBCA, CMP ####[facility] ([id number])5200 [facility] [place] [place] [address] Monocytes (Bld) [#/Vol] 0.5 10*3/uL Normal 0-0.9 [facility] Comment on above: Performed By: #### 1 9123-, 2776-03, CBCA, CMP ####[facility] ([id number])[address] [place] [address] Monocytes/100 WBC (Bld) 11.8 % Normal [facility] Comment on above: Performed By: #### 1 9123-9, 277-, CBCA, CMP ####[facility] ([id number])5200 [facility] [place] [address] Neutrophils/100 WBC (Bld) 66.9 % Normal [facility] Comment on above: Performed By: #### 1 9123-9, 2776-03, CBCA, CMP ####[facility] ([id number])5200 [place] [address] Platelet mean volume (Bld) [Entitic vol] 6.4 fL Low 7-12 [facility] Comment on above: Performed By: #### 1 9123-9, 2776-03, CBCA, CMP ####[facility] ([id number])5200 [place] [address] Platelets (Bld) [#/Vol] 195 10*3/uL Normal 150-450 [facility] Comment on above: Performed By: #### 1 9123-9, 2776-03, CBCA, CMP ####[facility] ([id number])5200 [place] [address] RBC COUNT 2.50 X10E12/L Low 3.80-5.20 [facility] Comment on above: Performed By: #### 1 9123-9, 2776-03, CBCA, CMP ####[facility] ([id number])5[address] [place] [address] WBC (Bld) [#/Vol] 3.9 10*3/uL Low 4.0-11.0 [facility] Comment on above: Performed By: #### 1 9123-9, 27708-30, CBCA, CMP ####[facility] ([id number])5200 [place] [address] CBC auto differentialon 10-0 -2023 Basophils (Bld) [#/Vol] 0.0 10*3/uL [facility] Basophils/100 WBC (Bld) 0.7 % [facility] Eosinophils (Bld) [#/Vol] 0.3 10*3/uL [facility] Eosinophils/100 WBC (Bld) 8.8 % [facility] Erythrocyte distribution width (RBC) [Ratio] 13.8 % 11.5 - 15.0 % [facility] Hematocrit (Bld) [Volume fraction] 22.2 % Low 35 - 47 % [facility] Hemoglobin (Bld) [Mass/Vol] 7.6 g/dL Low 11.7 - 15.5 g/dL [facility] Interpretation and review of laboratory results Abnormal [facility] Lymphocytes (Bld) [#/Vol] 0.5 10*3/uL Low [facility] Lymphocytes/100 WBC (Bld) 11.8 % [facility] MCH (RBC) [Entitic mass] 30.5 pg 27 - 34 pg [facility] MCHC (RBC) [Mass/Vol] 34.4 g/dL 32 - 36 g/dL [facility] MCV (RBC) [Entitic vol] 89 fL 80 - 100 fL [facility] Monocytes (Bld) [#/Vol] 0.5 10*3/uL [facility] Monocytes/100 WBC (Bld) 11.8 % [facility] Neutrophils (Bld) [#/Vol] 2.6 10*3/uL [facility] Neutrophils/100 WBC (Bld) 66.9 % [facility] Platelet mean volume (Bld) [Entitic vol] 6.4 fL Low 7 - 12 fL [facility] Platelets (Bld) [#/Vol] 195 10*3/uL [facility] RBC (Bld) [#/Vol] 2.50 10*6/uL Low [facility] WBC corrected for nucl RBC Auto (Bld) [#/Vol] 3.9 Low [facility] COMPREHENSIVE METABOLIC PANE [place] 12-05-2023 Albumin [Mass/Vol] 3.2 g/dL Normal 3.2-5.3 [facility] Comment on above: Performed By: #### 1 9123, 2776-03, CBCA, CMP ####[facility] ([id number])5[address] [place] [address] ALP [Catalytic activity/Vol] 58 U/L Normal 39-130 [facility] Comment on above: Performed By: #### 1 9122-10, 2776-03, CBCA, CMP ####[facility] ([id number])[address] [place] [address] ALT [Catalytic activity/Vol] 9 U/L Normal 0-31 [facility] Comment on above: Performed By: #### 1 9122-10, 2776-03, CBCA, CMP ####[facility] ([id number])5[address] [place] [address] Anion gap [Moles/Vol] 8 mmol/L Normal 5-15 [facility] Comment on above: Performed By: #### 1 9122-10, 2776-03, CBCA, CMP ####[facility] ([id number])5[address] [place] [address] AST [Catalytic activity/Vol] 15 U/L Normal 0-41 [facility] Comment on above: Performed By: #### 1 9122-10, 2776-03, CBCA, CMP ####[facility] ([id number])5[address] [place] [address] Bilirubin [Mass/Vol] 0.4 mg/dL Normal 0.3-1.2 [facility] Comment on above: Performed By: #### 1 9122-10, 2776-03, CBCA, CMP ####[facility] ([id number])5[address] [place] [address] Calcium [Mass/Vol] 9.4 mg/dL Normal 8.5-10.5 [facility] Comment on above: Performed By: #### 1 9122-10, 2776-03, CBCA, CMP ####[facility] ([id number])[address] [place] [address] Chloride [Moles/Vol] 105 mmol/L Normal 98-109 [facility] Comment on above: Performed By: #### 1 91, 2776-03, CBCA, CMP ####[facility] ([id number])5200 [facility] [place] [address] CO2 [Moles/Vol] 26 mmol/L Normal 22-32 [facility] Comment on above: Performed By: #### 1 9122-10, 2776-03, CBCA, CMP ####[facility] ([id number])5[address] [place] [address] Creatinine [Mass/Vol] 2.61 mg/dL High 0.40-1.00 [facility] Comment on above: Result Comment: METH OD TRACEABLE TO IDMS STANDARD Performed By: #### 1 91, 2776-03, CBCA, CMP ####[facility] ([id number])5200 [place] [address] GFR/1.73 sq M.predicted among non-blacks MDRD (S/P/Bld) [Vol rate/Area] 21 mL/min/{1.73_m2} Low >59 [facility] Comment on above: Result Comment: Repo rted eGFR is based on theCKD-EPI 2020 equation that doesnot use a race coefficient. Performed By: #### 1 919, 2776-03, CBCA, CMP ####[facility] ([id number])5200 [place] [address] Glucose [Mass/Vol] 95 mg/dL Normal 65-99 [facility] Comment on above: Performed By: #### 1 91, 2776-03, CBCA, CMP ####[facility] ([id number])5200 [facility] [place] [address] Potassium [Moles/Vol] 3.6 mmol/L Normal 3.5-5.0 [facility] Comment on above: Performed By: #### 1 91239, 2776-03, CBCA, CMP ####[facility] ([id number])5[address] [place] [address] Protein [Mass/Vol] 5.6 g/dL Low 6.0-8.0 [facility] Comment on above: Performed By: #### 1 9123-9, 2777-1, CBCA, CMP ####[facility] ([id number])5[address] [place] [address] Sodium [Moles/Vol] 139 mmol/L Normal 134-146 [facility] Comment on above: Performed By: #### 1 9123-9, 2777-1, CBCA, CMP ####[facility] ([id number])5200 [facility] [place] [address] Urea nitrogen [Mass/Vol] 19 mg/dL Normal 5-23 [facility] Comment on above: Performed By: #### 1 9123-9, 2777-1, CBCA, CMP ####[facility] ([id number])5200 [facility] [place] [address] Cobalamin (Vitamin B12) [Mas s/Vol]on 12-05-2023 [facility] Comprehensive metabolic pane rome 12-05-2023 Albumin [Mass/Vol] 3.2 g/dL 3.2 - 5.3 g/dL [facility] ALP [Catalytic activity/Vol] 58 U/L 39 - 130 U/L [facility] ALT No additional P-5'-P [Catalytic activity/Vol] 9 U/L 0 - 31 U/L [facility] Anion gap [Moles/Vol] 8 mmol/L 5 - 15 mmol/L [facility] AST [Catalytic activity/Vol] 15 U/L 0 - 41 U/L [facility] Bilirubin [Mass/Vol] 0.4 mg/dL 0.3 - 1 .2 mg/dL [facility] Calcium [Mass/Vol] 9.4 mg/dL 8.5 - 10. 5 mg/dL [facility] Chloride [Moles/Vol] 105 mmol/L 98 - 10 9 mmol/L [facility] CO2 [Moles/Vol] 26 mmol/L 22 - 32 mmol/L [facility] Creatinine [Mass/Vol] 2.61 mg/dL High 0.40 - 1.00 mg/dL [facility] Comment on above: METHOD TRACEABLE TO [facility] STANDARD eGFR (CKD-EPI)non-race dependent 21 Low - PINF [facility] Comment on above: Reported eGFR is based on the CKD-EPI 2020 equation that does not use a race coefficient. Glucose [Mass/Vol] 95 mg/dL 65 - 99 mg/dL [facility] Potassium [Moles/Vol] 3.6 mmol/L 3.5 - 5.0 mmol/L [facility] Protein [Mass/Vol] 5.6 g/dL Low 6.0 - 8.0 g/dL [facility] Sodium [Moles/Vol] 139 mmol/L 134 - 146 mmol/L [facility] Urea nitrogen [Mass/Vol] 19 mg/dL 5 - 23 mg/dL [facility] Folateon 12-05-2023 Folate [Mass/Vol] 9.7 ng/mL 5.8 - PINF ng/mL [facility] Comment on above: NEW REFERENCE RANGE Folate [Mass/Vol]on 12-05-19 [facility] Iron and TIBCon 12-05-2023 Interpretation and review of laboratory results Abnormal [facility] Iron [Mass/Vol] ug/dL Low 50 - 170 ug/dL [facility] Iron binding capacity [Mass/Vol] 272 ug/dL 250 - 425 ug/dL [facility] Iron saturation [Mass fraction] Low [facility] MAGNESIUMon 12-05-2023 Magnesium [Mass/Vol] 1.8 mg/dL Normal 1.8-2.6 [facility] Comment on above: Performed By: #### 1 9123-9, 2823-3 ####[facility] ([id number])5200 [place] [address] Magnesium [Mass/Vol] 1.5 mg/dL Low 1.8-2.6 [facility] Comment on above: Performed By: #### 1 9123-9, 2777-1, CBCA, CMP ####[facility] ([id number])5200 [facility] [place] [address] Magnesiumon 12-05-2023 Magnesium [Mass/Vol] 1.8 mg/dL 1.8 - 2 .6 mg/dL [facility] Magnesium [Mass/Vol] 1.5 mg/dL Low 1.8 - 2 .6 mg/dL [facility] No Panel Informationon 12-04 [facility] Interpretation and review of laboratory results Abnormal [facility] PHOSPHORUSon 12-05-2023 Phosphate [Mass/Vol] 4.1 mg/dL Normal 2.4-4.9 [facility] Comment on above: Performed By: #### 1 9123-9, 2777-1, CBCA, CMP ####[facility] ([id number])5200 [facility] [place] [address] POTASSIUMon 12-05-2023 Potassium [Moles/Vol] 3.6 mmol/L Normal 3.5-5.0 [facility] Comment on above: Performed By: #### 1 9123-9, 2823-3 ####[facility] ([id number])5200 [facility] [place] [address] Phosphoruson 12-05-2023 Phosphate [Mass/Vol] 4.1 mg/dL 2.4 - 4 .9 mg/dL [facility] Potassiumon 12-05-2023 Potassium [Moles/Vol] 3.6 mmol/L 3.5 - 5.0 mmol/L [facility] RESP PATHOGENS/VOIO-AgG-7rh 12-05-2023 Respiratory pathogens DNA and RNA panel KYLE+non-probe (Nph) Normal [facility] Comment on above: Performed By: #### 8 2159-5 ####[facility] ([id number])5200 [place], [place] [address] ([id number])2130 [facility], [address] [address] Respiratory pathogens DNA an d RNA panel KYLE+non-probe (Nph)on 12-05-2023 Adenovirus DNA KYLE+non-probe Ql (Nph) Not detected Not Detected^Not Detected [facility] B. parapertussis [id number] DNA KYLE+non-probe Ql (Nph) Not detected Not Detected^Not Detected [facility] B. pertussis toxin promoter region KYLE+non-probe Ql (Nph) Not detected Not Detected^Not Detected [facility] C. pneumoniae DNA KYLE+non-probe Ql (Nph) Not detected Not Detected^Not Detected [facility] FLUAV RNA KYLE+non-probe Ql (Nph) Not detected Not Detected^Not Detected [facility] FLUBV RNA KYLE+non-probe Ql (Nph) Not detected Not Detected^Not Detected [facility] HCoV 229E RNA KYLE+non-probe Ql (Nph) Not detected Not Detected^Not Detected [facility] HCoV HKU1 RNA KYLE+non-probe Ql (Nph) Not detected Not Detected^Not Detected [facility] HCoV NL63 RNA KYLE+non-probe Ql (Nph) Not detected Not Detected^Not Detected [facility] HCoV OC43 RNA KYLE+non-probe Ql (Nph) Not detected Not Detected^Not Detected [facility] hMPV RNA KYLE+non-probe Ql (Nph) Not detected Not Detected^Not Detected [facility] M. pneumoniae DNA KYLE+non-probe Ql (Nph) Not detected Not Detected^Not Detected [facility] Parainfluenza virus 1 RNA KYLE+non-probe Ql (Nph) Not detected Not Detected^Not Detected [facility] Parainfluenza virus 2 RNA KYLE+non-probe Ql (Nph) Not detected Not Detected^Not Detected [facility] Parainfluenza virus 3 RNA KYLE+non-probe Ql (Nph) Not detected Not Detected^Not Detected [facility] Parainfluenza virus 4 RNA KYLE+non-probe Ql (Nph) Not detected Not Detected^Not Detected [facility] Rhinovirus+Enteroviru s RNA KYLE+non-probe Ql (Nph) Not detected Not Detected^Not Detected [facility] RSV RNA KYLE+non-probe Ql (Nph) Not detected Not Detected^Not Detected [facility] SARS-CoV-2 (COVID-19) RNA KYLE+probe Ql (Resp) Not detected Not Detected^Not Detected [facility] Comment on above: NOTE The [employer] [...] Specimen source Nom (Body fld) NASO PHARYNX [facility] Vitamin B12on 12-05-2023 Cobalamin (Vitamin B12) [Mass/Vol] 185 pg/mL 180 - 914 pg/mL [facility] XR CHEST 1 VWon 12-05-2023 XR CHEST 1 VW Normal [facility] XR Chest Single viewon 12-04 Clinical history: [...] Brice Sanders MD on 12/05/2023 12:16 PM [facility] Radiology Study observation (narrative) [facility] XR Chest Single viewOrdered By: Brice Sanders on 12-05-2023 [facility] Work Phone: Bacteria identified Cx Nom ( U)on 12-04-2023 Service comment (Unsp spec) [Interp] NO GROWTH AT <1000 CFU/mL [facility] CBC AND AUTO DIFFon 12-04-19 24 ABSOLUTE BASOPHIL 0.0 X10E9/L Normal 0.0-0.2 [facility] Comment on above: Performed By: #### 2 777-1, CBCA, CMP, ####[facility] ([id number])5200 [place] [address] ABSOLUTE NEUTROPHIL 3.1 X10E9/L Normal 1.5-6.6 [facility] Comment on above: Performed By: #### 2 777-1, CBCA, CMP, ####[facility] ([id number])5200 [place] [address] Basophils/100 WBC (Bld) 0.3 % Normal [facility] Comment on above: Performed By: #### 2 777-1, CBCA, CMP, ####[facility] ([id number])5200 [place] [address] Eosinophils (Bld) [#/Vol] 0.4 10*3/uL Normal 0.0-0.4 [facility] Comment on above: Performed By: #### 2 777-1, CBCA, CMP, ####[facility] ([id number])5200 [facility] [place] [address] Eosinophils/100 WBC (Bld) 8.5 % Normal [facility] Comment on above: Performed By: #### 2 777-1, CBCA, CMP, ####[facility] ([id number])5200 [facility] [place] [address] Erythrocyte distribution width (RBC) [Ratio] 14.0 % Normal 11.5-15.0 [facility] Comment on above: Performed By: #### 2 777-1, CBCA, CMP, ####[facility] ([id number])5200 [facility] [place] [address] Hematocrit (Bld) [Volume fraction] 21.2 % Low 35-47 [facility] Comment on above: Performed By: #### 2 777-1, CBCA, CMP, ####[facility] ([id number])5200 [facility] [place] [address] Hemoglobin (Bld) [Mass/Vol] 7.3 g/dL Low 11.7-15.5 [facility] Comment on above: Performed By: #### 2 777-1, CBCA, CMP, ####[facility] ([id number])5200 [facility] [place] [address] Lymphocytes (Bld) [#/Vol] 0.4 10*3/uL Low 1.0-3.5 [facility] Comment on above: Performed By: #### 2 777-1, CBCA, CMP, ####[facility] ([id number])5200 [facility] [place] [address] Lymphocytes/100 WBC (Bld) 10.0 % Normal [facility] Comment on above: Performed By: #### 2 777-1, CBCA, CMP, ####[facility] ([id number])5200 [facility] [place] [address] MCH (RBC) [Entitic mass] 30.7 pg Normal 27-34 [facility] Comment on above: Performed By: #### 2 777-1, CBCA, CMP, ####[facility] ([id number])5200 [facility] [place] [address] MCHC (RBC) [Mass/Vol] 34.3 g/dL Normal 32-36 [facility] Comment on above: Performed By: #### 2 777-1, CBCA, CMP, 31658-9 ####[facility] ([id number])5200 [facility] [place] [address] MCV (RBC) [Entitic vol] 90 fL Normal 80-100 [facility] Comment on above: Performed By: #### 2 777-1, CBCA, CMP, ####[facility] ([id number])5200 [facility] [place] [address] Monocytes (Bld) [#/Vol] 0.5 10*3/uL Normal 0-0.9 [facility] Comment on above: Performed By: #### 2 777-1, CBCA, CMP, ####[facility] ([id number])5200 [facility] [place] [address] Monocytes/100 WBC (Bld) 10.6 % Normal [facility] Comment on above: Performed By: #### 2 777-1, CBCA, CMP, ####[facility] ([id number])5200 [facility] [place] [address] Neutrophils/100 WBC (Bld) 70.6 % Normal [facility] Comment on above: Performed By: #### 2 777-1, CBCA, CMP, ####[facility] ([id number])5200 [facility] [place] [address] Platelet mean volume (Bld) [Entitic vol] 6.4 fL Low 7-12 [facility] Comment on above: Performed By: #### 2 777-1, CBCA, CMP, ####[facility] ([id number])5200 [facility] [place] [address] Platelets (Bld) [#/Vol] 201 10*3/uL Normal 150-450 [facility] Comment on above: Performed By: #### 2 777-1, CBCA, CMP, 91738-7 ####[facility] ([id number])5200 [place] [address] RBC COUNT 2.37 X10E12/L Low 3.80-5.20 [facility] Comment on above: Performed By: #### 2 777-1, CBCA, CMP, ####[facility] ([id number])5200 [place] [address] WBC (Bld) [#/Vol] 4.3 10*3/uL Normal 4.0-11.0 [facility] Comment on above: Performed By: #### 2 777-1, CBCA, CMP, ####[facility] ([id number])5200 [place] [address] CBC auto differentialon 10-0 -2023 Basophils (Bld) [#/Vol] 0.0 10*3/uL [facility] Basophils/100 WBC (Bld) 0.3 % [facility] Eosinophils (Bld) [#/Vol] 0.4 10*3/uL [facility] Eosinophils/100 WBC (Bld) 8.5 % [facility] Erythrocyte distribution width (RBC) [Ratio] 14.0 % 11.5 - 15.0 % [facility] Hematocrit (Bld) [Volume fraction] 21.2 % Low 35 - 47 % [facility] Hemoglobin (Bld) [Mass/Vol] 7.3 g/dL Low 11.7 - 15.5 g/dL [facility] Interpretation and review of laboratory results Abnormal [facility] Lymphocytes (Bld) [#/Vol] 0.4 10*3/uL Low [facility] Lymphocytes/100 WBC (Bld) 10.0 % [facility] MCH (RBC) [Entitic mass] 30.7 pg 27 - 34 pg [facility] MCHC (RBC) [Mass/Vol] 34.3 g/dL 32 - 36 g/dL [facility] MCV (RBC) [Entitic vol] 90 fL 80 - 100 fL [facility] Monocytes (Bld) [#/Vol] 0.5 10*3/uL [facility] Monocytes/100 WBC (Bld) 10.6 % [facility] Neutrophils (Bld) [#/Vol] 3.1 10*3/uL [facility] Neutrophils/100 WBC (Bld) 70.6 % [facility] Platelet mean volume (Bld) [Entitic vol] 6.4 fL Low 7 - 12 fL [facility] Platelets (Bld) [#/Vol] 201 10*3/uL [facility] RBC (Bld) [#/Vol] 2.37 10*6/uL Low [facility] WBC corrected for nucl RBC Auto (Bld) [#/Vol] 4.3 [facility] COMPREHENSIVE METABOLIC PANE [place] 12-04-2023 Albumin [Mass/Vol] 3.2 g/dL Normal 3.2-5.3 [facility] Comment on above: Performed By: #### 2 777-1, CBCA, CMP, 16683-2 ####[facility] ([id number])5200 [place] [address] ALP [Catalytic activity/Vol] 56 U/L Normal 39-130 [facility] Comment on above: Performed By: #### 2 777-1, CBCA, CMP, 72032-6 ####[facility] ([id number])5200 [place] [address] ALT [Catalytic activity/Vol] 9 U/L Normal 0-31 [facility] Comment on above: Performed By: #### 2 777-1, CBCA, CMP, ####[facility] ([id number])5[address] [place] [address] Anion gap [Moles/Vol] 6 mmol/L Normal 5-15 [facility] Comment on above: Performed By: #### 2 777-1, CBCA, CMP, ####[facility] ([id number])5[address] [place] [address] AST [Catalytic activity/Vol] 15 U/L Normal 0-41 [facility] Comment on above: Performed By: #### 2 777-1, CBCA, CMP, 31414-4 ####[facility] ([id number])5[address] [place] [address] Bilirubin [Mass/Vol] 0.5 mg/dL Normal 0.3-1.2 [facility] Comment on above: Performed By: #### 2 777-1, CBCA, CMP, ####[facility] ([id number])5[address] [place] [address] Calcium [Mass/Vol] 9.2 mg/dL Normal 8.5-10.5 [facility] Comment on above: Performed By: #### 2 777-1, CBCA, CMP, ####[facility] ([id number])5[address] [place] [address] Chloride [Moles/Vol] 107 mmol/L Normal 98-109 [facility] Comment on above: Performed By: #### 2 777-1, CBCA, CMP, ####[facility] ([id number])5[address] [place] [address] CO2 [Moles/Vol] 25 mmol/L Normal 22-32 [facility] Comment on above: Performed By: #### 2 777-1, CBCA, CMP, ####[facility] ([id number])5200 [place] [address] Creatinine [Mass/Vol] 2.81 mg/dL High 0.40-1.00 [facility] Comment on above: Result Comment: METH OD TRACEABLE TO IDMS STANDARD Performed By: #### 2 777-1, CBCA, CMP, ####[facility] ([id number])5[address] [place] [address] GFR/1.73 sq M.predicted among non-blacks MDRD (S/P/Bld) [Vol rate/Area] 19 mL/min/{1.73_m2} Low >59 [facility] Comment on above: Result Comment: Repo rted eGFR is based on theCKD-EPI 2020 equation that doesnot use a race coefficient. Performed By: #### 2 777-1, CBCA, CMP, ####[facility] ([id number])5[address] [place] [address] Glucose [Mass/Vol] 91 mg/dL Normal 65-99 [facility] Comment on above: Performed By: #### 2 777-1, CBCA, CMP, ####[facility] ([id number])5[address] [place] [address] Potassium [Moles/Vol] 3.4 mmol/L Low 3.5-5.0 [facility] Comment on above: Performed By: #### 2 777-1, CBCA, CMP, ####[facility] ([id number])5200 [facility] [place] [address] Protein [Mass/Vol] 5.4 g/dL Low 6.0-8.0 [facility] Comment on above: Performed By: #### 2 777-1, CBCA, CMP, ####[facility] ([id number])5200 [facility] [place] [address] Sodium [Moles/Vol] 138 mmol/L Normal 134-146 [facility] Comment on above: Performed By: #### 2 777-1, CBCA, CMP, ####[facility] ([id number])5200 [place] [address] Urea nitrogen [Mass/Vol] 24 mg/dL High 5-23 [facility] Comment on above: Performed By: #### 2 777-1, CBCA, CMP, ####[facility] ([id number])5200 [place] [address] Calcium.ionized (Bld) [Mass/ Vol]on 12-04-2023 [facility] IONIZED CALCIUM 5.0 mg/dL Normal 4.5-5.3 [facility] Comment on above: Performed By: #### 3 8230-9 ####[facility] ([id number])5200 [place] [address] Comprehensive metabolic pane rome 12-04-2023 Albumin [Mass/Vol] 3.2 g/dL 3.2 - 5.3 g/dL [facility] ALP [Catalytic activity/Vol] 56 U/L 39 - 130 U/L [facility] ALT No additional P-5'-P [Catalytic activity/Vol] 9 U/L 0 - 31 U/L [facility] Anion gap [Moles/Vol] 6 mmol/L 5 - 15 mmol/L [facility] AST [Catalytic activity/Vol] 15 U/L 0 - 41 U/L [facility] Bilirubin [Mass/Vol] 0.5 mg/dL 0.3 - 1 .2 mg/dL [facility] Calcium [Mass/Vol] 9.2 mg/dL 8.5 - 10. 5 mg/dL [facility] Chloride [Moles/Vol] 107 mmol/L 98 - 10 9 mmol/L [facility] CO2 [Moles/Vol] 25 mmol/L 22 - 32 mmol/L [facility] Creatinine [Mass/Vol] 2.81 mg/dL High 0.40 - 1.00 mg/dL [facility] Comment on above: METHOD TRACEABLE TO IDGA STANDARD eGFR (CKD-EPI)non-race dependent 19 Low - PINF [facility] Comment on above: Reported eGFR is based on the CKD-EPI 2020 equation that does not use a race coefficient. Glucose [Mass/Vol] 91 mg/dL 65 - 99 mg/dL [facility] Interpretation and review of laboratory results Abnormal [facility] Potassium [Moles/Vol] 3.4 mmol/L Low 3.5 - 5.0 mmol/L [facility] Protein [Mass/Vol] 5.4 g/dL Low 6.0 - 8.0 g/dL [facility] Sodium [Moles/Vol] 138 mmol/L 134 - 146 mmol/L [facility] Urea nitrogen [Mass/Vol] 24 mg/dL High 5 - 23 mg/dL [facility] Folate [Mass/Vol]on 12-04-19 24 FOLIC ACID 9.7 ng/mL Normal >5.8 [facility] Comment on above: Result Comment: NEW REFERENCE RANGE Performed By: #### 2 823-3 ####[facility] ([id number])5200 [place] [address]#### 2132-9, 2284-8, FEPR ####[facility] ([id number])[address] [address] IRON PROFILEon 12-04-2023 Iron [Mass/Vol] ug/dL Low 50-170 [facility] Comment on above: Performed By: #### 2 823-3 ####[facility] ([id number])5200 [place] [address]#### 2132-9, 2284-8, FEPR ####[facility] ([id number])2130 [facility] [address] [place] [address] IRON BINDING 272 ug/dL Normal 250-425 [facility] Comment on above: Performed By: #### 2 823-3 ####[facility] ([id number])5200 [place] [address]#### 2132-9, 2284-8, FEPR ####[facility] ([id number])2130 [facility], [address] [address] IRON SATURATION <4 Low 15-50 [facility] Comment on above: Performed By: #### 2 823-3 ####[facility] ([id number])5200 [place] [address]#### 2132-9, 2284-8, FEPR ####[facility] ([id number])2[address] [facility] [address] [address] Ionized calciumon 12-04-2023 Calcium.ionized (Bld) [Mass/Vol] 5.0 mg/dL 4.5 - 5.3 mg/dL [facility] MAGNESIUMon 12-04-2023 Magnesium [Mass/Vol] 1.9 mg/dL Normal 1.8-2.6 [facility] Comment on above: Performed By: #### 2 777-1, CBCA, CMP, ####[facility] ([id number])5200 [place] [address] Magnesiumon 12-04-2023 Magnesium [Mass/Vol] 1.9 mg/dL 1.8 - 2 .6 mg/dL [facility] No Panel Informationon 12-03 [facility] PHOSPHORUSon 12-04-2023 Phosphate [Mass/Vol] 3.9 mg/dL Normal 2.4-4.9 [facility] Comment on above: Performed By: #### 2 777-1, CBCA, CMP, 39600-4 ####[facility] ([id number])5200 [place] [address] POTASSIUMon 12-04-2023 Potassium [Moles/Vol] 3.7 mmol/L Normal 3.5-5.0 [facility] Comment on above: Performed By: #### 2 823-3 ####[facility] ([id number])5200 [place] [address]#### 2132-9, 2284-8, FEPR ####[facility] ([id number])[address] [address] Phosphoruson 12-04-2023 Phosphate [Mass/Vol] 3.9 mg/dL 2.4 - 4 .9 mg/dL [facility] Potassiumon 12-04-2023 Potassium [Moles/Vol] 3.7 mmol/L 3.5 - 5.0 mmol/L [facility] Potassium [Moles/Vol]on [facility] Protein electrophoresis, ser umon 12-04-2023 Albumin [Mass/Vol] 3.1 g/dL Low 3.4 - 5.3 g/dL [facility] Alpha 1 globulin Elph [Mass/Vol] 0.4 g/dL 0.1 - 0.4 g/dL [facility] Alpha 2 globulin Elph [Mass/Vol] 0.7 g/dL 0.4 - 1.1 g/dL [facility] Beta globulin Elph [Mass/Vol] 0.7 g/dL 0.5 - 1.2 g/dL [facility] Gamma globulin Elph [Mass/Vol] 0.6 g/dL 0.5 - 1.6 g/dL [facility] Interpretation and review of laboratory results Abnormal [facility] Pathologist interpretation (Bld) [Interp] Unremarkable protein distribution, no monoclonal bands. [facility] Protein [Mass/Vol] 5.4 g/dL Low 6.0 - 8.0 g/dL [facility] US RETROPERITONEAL COMPLETEo n 12-04-2023 US RETROPERITONEAL COMPLETE Normal [facility] US Retroperitoneumon 024 ULTRASOUND RETROPERITONEUM INDICATION: Acute [...] Jesus Singh MD on 12/04/2023 9:23 AM SECTRAPAJesus Pike MD - 12/04/2023 ULTRASOUND RETROPERITONEUM INDICATION: Acute [...] Jesus Singh MD on 12/04/2023 9:23 AM [facility] (narrative) [facility] US RetroperitoneumOrdered By : Jesus Singh on 12-04-2023 [facility] Work Phone: VITAMIN B12on 12-04-2023 Cobalamin (Vitamin B12) [Mass/Vol] 185 pg/mL Normal 180-914 [facility] Comment on above: Performed By: #### 2 823-3 ####[facility] ([id number])5200 [place] [address]#### 2132-9, 2284-8, FEPR ####[facility] ([id number])2130 [facility], [address] [place] [address] JUSTIN Screen w/ Reflexon 12-02 Nuclear Ab IA Ql (S) Negative Negativ e^Neg ative [facility] Comment on above: Testing performed using multiplex flow immunoassay. Eleven different antigens associated with systemic autoimmune diseases (dsDNA,Sm,Sm/FUEL VERIFICATION TECHNICIAN,FUEL VERIFICATION TECHNICIAN,Chromatin, SSA,SSB,Alice-1,Scl70,Ribo P,Centromere B) are included in this screening test. APTTon 12-03-2023 aPTT Coag (PPP) [Time] 35 s Pixel Press Auto Diff (add on use only)o n 12-03-2023 Basophils (Bld) [#/Vol] 0.0 10*3/uL [facility] Basophils/100 WBC (Bld) 0.4 % [facility] Eosinophils (Bld) [#/Vol] 0.3 10*3/uL [facility] Eosinophils/100 WBC (Bld) 6.0 % [facility] Lymphocytes (Bld) [#/Vol] 0.6 10*3/uL Low [facility] Lymphocytes/100 WBC (Bld) 10.9 % [facility] Monocytes (Bld) [#/Vol] 0.5 10*3/uL [facility] Monocytes/100 WBC (Bld) 9.4 % [facility] Neutrophils (Bld) [#/Vol] 4.2 10*3/uL [facility] Neutrophils/100 WBC (Bld) 73.3 % [facility] CBC without diffon Erythrocyte distribution width (RBC) [Ratio] 14.2 % 11.5 - 15.0 % [facility] Hematocrit (Bld) [Volume fraction] 22.9 % Low 35 - 47 % [facility] Hemoglobin (Bld) [Mass/Vol] 8.0 g/dL Low 11.7 - 15.5 g/dL [facility] MCH (RBC) [Entitic mass] 31.3 pg 27 - 34 pg [facility] MCHC (RBC) [Mass/Vol] 34.9 g/dL 32 - 36 g/dL P [facility] MCV (RBC) [Entitic vol] 90 fL 80 - 100 fL [facility] Platelet mean volume (Bld) [Entitic vol] 6.5 fL Low 7 - 12 fL [facility] Platelets (Bld) [#/Vol] 233 10*3/uL [facility] RBC (Bld) [#/Vol] 2.55 10*6/uL Low [facility] WBC corrected for nucl RBC Auto (Bld) [#/Vol] 5.8 [facility] CK Totalon 12-03-2023 CK [Catalytic activity/Vol] 52 U/L 24 - 170 U/L [facility] CK [Catalytic activity/Vol]o n 12-03-2023 [facility] CPK 52 U/L Normal 24-170 [facility] Comment on above: Performed By: #### C 34, 6969-0, 31193-7, 6968-2, SPE, [id number] ####[facility] ([id number])[address] [place] [address], [address] [address]#### 2157-6 ####[facility] ([id number])[address] [place] [address] COMPLEMENT PROFILEon 024 COMPLEMENT C3 158 mg/dL Normal 86-184 [facility] Comment on above: Performed By: #### C 34, 6969-0, 96470-7, 6968-2, SPE, 87165-6 ####[facility] ([id number])[address] [place] [address], [address] [address]#### [id number] ####[facility] ([id number])5200 [place] [address] COMPLEMENT C4 38 mg/dL Normal 16-47 [facility] Comment on above: Performed By: #### C 34, 6969-0, 75799-7, 6968-2, SPE, 62132-6 ####[facility] LAB ([id number])[address] [place] [address], [address] [address]#### 2157-6 ####[facility] ([id number])5200 [place] [address] COMPLETE BLOOD COUNTon 12-02 Erythrocyte distribution width (RBC) [Ratio] 14.2 % Normal 11.5-15.0 [facility] Comment on above: Performed By: #### C MP, CBC, , , DIFFA ####[facility] ([id number])5200 [place] [address] Hematocrit (Bld) [Volume fraction] 22.9 % Low 35-47 [facility] Comment on above: Performed By: #### C MP, CBC, , , DIFFA ####[facility] ([id number])5200 [facility] [place] [address] Hemoglobin (Bld) [Mass/Vol] 8.0 g/dL Low 11.7-15.5 [facility] Comment on above: Performed By: #### C MP, CBC, , , DIFFA ####[facility] ([id number])5200 [facility] [place] [address] MCH (RBC) [Entitic mass] 31.3 pg Normal 27-34 [facility] Comment on above: Performed By: #### C MP, CBC, , , DIFFA ####[facility] ([id number])5200 [facility] [place] [address] MCHC (RBC) [Mass/Vol] 34.9 g/dL Normal 32-36 [facility] Comment on above: Performed By: #### C MP, CBC, , , DIFFA ####[facility] ([id number])5200 [facility] [place] [address] MCV (RBC) [Entitic vol] 90 fL Normal 80-100 [facility] Comment on above: Performed By: #### C MP, CBC, , , DIFFA ####[facility] ([id number])5200 [facility] [place] [address] Platelet mean volume (Bld) [Entitic vol] 6.5 fL Low 7-12 [facility] Comment on above: Performed By: #### C MP, CBC, , , DIFFA ####[facility] ([id number])5200 [facility] [place] [address] Platelets (Bld) [#/Vol] 233 10*3/uL Normal 150-450 [facility] Comment on above: Performed By: #### C MP, CBC, , , DIFFA ####[facility] ([id number])5200 [facility] [place] [address] RBC COUNT 2.55 X10E12/L Low 3.80-5.20 [facility] Comment on above: Performed By: #### C MP, CBC, , , DIFFA ####[facility] ([id number])5200 [facility] [place] [address] WBC (Bld) [#/Vol] 5.8 10*3/uL Normal 4.0-11.0 [facility] Comment on above: Performed By: #### C MP, CBC, , , DIFFA ####[facility] ([id number])5200 [facility] [place] [address] COMPREHENSIVE METABOLIC PANE [place] 12-03-2023 Albumin [Mass/Vol] 3.3 g/dL Normal 3.2-5.3 [facility] Comment on above: Performed By: #### C MP, CBC, , , DIFFA ####[facility] ([id number])5200 [facility] [place] [address] ALP [Catalytic activity/Vol] 60 U/L Normal 39-130 [facility] Comment on above: Performed By: #### C MP, CBC, , , DIFFA ####[facility] ([id number])5200 [facility] [place] [address] ALT [Catalytic activity/Vol] 10 U/L Normal 0-31 [facility] Comment on above: Performed By: #### C MP, CBC, , , DIFFA ####[facility] ([id number])5200 [facility] [place] [address] Anion gap [Moles/Vol] 8 mmol/L Normal 5-15 [facility] Comment on above: Performed By: #### C MP, CBC, , , DIFFA ####[facility] ([id number])5200 [place] [address] AST [Catalytic activity/Vol] 19 U/L Normal 0-41 [facility] Comment on above: Performed By: #### C MP, CBC, , , DIFFA ####[facility] ([id number])5200 [place] [address] Bilirubin [Mass/Vol] 0.6 mg/dL Normal 0.3-1.2 [facility] Comment on above: Performed By: #### C MP, CBC, , , DIFFA ####[facility] ([id number])5200 [place] [address] Calcium [Mass/Vol] 9.2 mg/dL Normal 8.5-10.5 [facility] Comment on above: Performed By: #### C MP, CBC, , , DIFFA ####[facility] ([id number])5200 [place] [address] Chloride [Moles/Vol] 104 mmol/L Normal 98-109 [facility] Comment on above: Performed By: #### C MP, CBC, , , DIFFA ####[facility] ([id number])5200 [place] [address] CO2 [Moles/Vol] 25 mmol/L Normal 22-32 [facility] Comment on above: Performed By: #### C MP, CBC, , , DIFFA ####[facility] ([id number])5200 [place] [address] Creatinine [Mass/Vol] 2.49 mg/dL High 0.40-1.00 [facility] Comment on above: Result Comment: METH OD TRACEABLE TO IDMS STANDARD Performed By: #### C MP, CBC, , , DIFFA ####[facility] ([id number])5200 [place] [address] GFR/1.73 sq M.predicted among non-blacks MDRD (S/P/Bld) [Vol rate/Area] 23 mL/min/{1.73_m2} Low >59 [facility] Comment on above: Result Comment: Repo rted eGFR is based on theCKD-EPI 2020 equation that doesnot use a race coefficient. Performed By: #### C MP, CBC, , , DIFFA ####[facility] ([id number])5200 [facility] [place] [address] Glucose [Mass/Vol] 103 mg/dL High 65-99 [facility] Comment on above: Performed By: #### C MP, CBC, , , DIFFA ####[facility] ([id number])5200 [facility] [place] [address] Potassium [Moles/Vol] 3.1 mmol/L Low 3.5-5.0 [facility] Comment on above: Performed By: #### C MP, CBC, , , DIFFA ####[facility] ([id number])5200 [facility] [place] [address] Protein [Mass/Vol] 5.5 g/dL Low 6.0-8.0 [facility] Comment on above: Performed By: #### C MP, CBC, , , DIFFA ####[facility] ([id number])5200 [facility] [place] [address] Sodium [Moles/Vol] 137 mmol/L Normal 134-146 [facility] Comment on above: Performed By: #### C MP, CBC, , , DIFFA ####[facility] ([id number])5200 [facility] [place] [address] Urea nitrogen [Mass/Vol] 25 mg/dL High 5-23 [facility] Comment on above: Performed By: #### C MP, CBC, , , DIFFA ####[facility] ([id number])5207 [place] [address] Complement profile (C3 AND C 4)on 12-03-2023 Complement C3 [Mass/Vol] 158 mg/dL 86 - 184 mg/dL [facility] Complement C4 [Mass/Vol] 38 mg/dL 16 - 47 mg/dL [facility] Comprehensive metabolic pane [place] 12-03-2023 Albumin [Mass/Vol] 3.3 g/dL 3.2 - 5.3 g/dL [facility] ALP [Catalytic activity/Vol] 60 U/L 39 - 130 U/L [facility] ALT No additional P-5'-P [Catalytic activity/Vol] 10 U/L 0 - 31 U/L [facility] Anion gap [Moles/Vol] 8 mmol/L 5 - 15 mmol/L [facility] AST [Catalytic activity/Vol] 19 U/L 0 - 41 U/L [facility] Bilirubin [Mass/Vol] 0.6 mg/dL 0.3 - 1 .2 mg/dL [facility] Calcium [Mass/Vol] 9.2 mg/dL 8.5 - 10. 5 mg/dL [facility] Chloride [Moles/Vol] 104 mmol/L 98 - 10 9 mmol/L [facility] CO2 [Moles/Vol] 25 mmol/L 22 - 32 mmol/L [facility] Creatinine [Mass/Vol] 2.49 mg/dL High 0.40 - 1.00 mg/dL [facility] Comment on above: METHOD TRACEABLE TO [facility] STANDARD eGFR (CKD-EPI)non-race dependent 23 Low - PINF [facility] Comment on above: Reported eGFR is based on the CKD-EPI 2020 equation that does not use a race coefficient. Glucose [Mass/Vol] 103 mg/dL High 65 - 99 mg/dL [facility] Potassium [Moles/Vol] 3.1 mmol/L Low 3.5 - 5.0 mmol/L [facility] Protein [Mass/Vol] 5.5 g/dL Low 6.0 - 8.0 g/dL [facility] Sodium [Moles/Vol] 137 mmol/L 134 - 146 mmol/L [facility] Urea nitrogen [Mass/Vol] 25 mg/dL High 5 - 23 mg/dL [facility] DIFFERENTIALon 12-03-2023 ABSOLUTE BASOPHIL 0.0 X10E9/L Normal 0.0-0.2 [facility] Comment on above: Performed By: #### C MP, CBC, , , DIFFA ####[facility] ([id number])5200 [place] [address] ABSOLUTE NEUTROPHIL 4.2 X10E9/L Normal 1.5-6.6 [facility] Comment on above: Performed By: #### C MP, CBC, , , DIFFA ####[facility] ([id number])5200 [place] [address] Basophils/100 WBC (Bld) 0.4 % Normal [facility] Comment on above: Performed By: #### C MP, CBC, , , DIFFA ####[facility] ([id number])5200 [place] [address] Eosinophils (Bld) [#/Vol] 0.3 10*3/uL Normal 0.0-0.4 [facility] Comment on above: Performed By: #### C MP, CBC, , , DIFFA ####[facility] ([id number])5200 [place] [address] Eosinophils/100 WBC (Bld) 6.0 % Normal [facility] Comment on above: Performed By: #### C MP, CBC, , , DIFFA ####[facility] ([id number])5200 [place] [address] Lymphocytes (Bld) [#/Vol] 0.6 10*3/uL Low 1.0-3.5 [facility] Comment on above: Performed By: #### C MP, CBC, , , DIFFA ####[facility] ([id number])5200 [facility] [address] Lymphocytes/100 WBC (Bld) 10.9 % Normal [facility] Comment on above: Performed By: #### C MP, CBC, 24333-0, , DIFFA ####[facility] ([id number])5200 [place] [address] Monocytes (Bld) [#/Vol] 0.5 10*3/uL Normal 0-0.9 [facility] Comment on above: Performed By: #### C MP, CBC, , , DIFFA ####[facility] ([id number])5200 [facility] [place] [address] Monocytes/100 WBC (Bld) 9.4 % Normal [facility] Comment on above: Performed By: #### C MP, CBC, , , DIFFA ####[facility] ([id number])5200 [facility] [place] [address] Neutrophils/100 WBC (Bld) 73.3 % Normal [facility] Comment on above: Performed By: #### C MP, CBC, , , DIFFA ####[facility] ([id number])5200 [place] [address] ECG 12 leadon 12-03-2023 TRACEMASTERVUE [facility] Glomerular basement membrane IgG ABon 12-03-2023 Glomerular basement membrane IgG Qn (S) NINF [facility] Glomerular basement membrane IgG Qn (S)on 12-03-2023 GBM IgG Ab <0.2 Normal <1.0 [facility] Comment on above: Performed By: #### C 34, 6969-0, 97927-0, 6968-2, SPE, 12698-6 ####[facility] ([id number])2130 [facility], [address] [address]#### 2157-6 ####[facility] ([id number])5200 [place] [address] MAGNESIUMon 12-03-2023 Magnesium [Mass/Vol] 2.2 mg/dL Normal 1.8-2.6 [facility] Comment on above: Performed By: #### 2 823-3, ####[facility] ([id number])5200 [place] [address] Magnesium [Mass/Vol] 1.5 mg/dL Low 1.8-2.6 [facility] Comment on above: Performed By: #### C MP, CBC, 93660-5, 65598-7, DIFFA ####[facility] ([id number])5200 [place] [address] Magnesiumon 12-03-2023 Magnesium [Mass/Vol] 2.2 mg/dL 1.8 - 2 .6 mg/dL [facility] Magnesium [Mass/Vol] 1.5 mg/dL Low 1.8 - 2 .6 mg/dL [facility] Myeloperoxidase ABon 024 Myeloperoxidase Ab Qn (S) NINF [facility] Myeloperoxidase Ab Qn (S)on 12-03-2023 Myeloperoxidase Ab <0.2 Normal <1.0 [facility] Comment on above: Performed By: #### C 34, 6969-0, 13065-3, 6968-2, SPE, 28379-8 ####[facility] ([id number])2130 [facility], [address] [place] [address]#### 2157-6 ####[facility] ([id number])5200 [place] [address] No Panel Informationon 12-02 [facility] Interpretation and review of laboratory results Abnormal [facility] Interpretation and review of laboratory results Abnormal [facility] Nuclear Ab IA Ql (S)on 12-02 [facility] JUSTIN Screen w/reflex Negative Normal NEG [facility] Comment on above: Result Comment: Test ing performed using multiplex flowimmunoassay. Eleven different antigensassociated with systemic autoimmunediseases (dsDNA,Sm,Sm/FUEL VERIFICATION TECHNICIAN,FUEL VERIFICATION TECHNICIAN,Chromatin,SSA,SSB,Alice-1,Scl70,Ribo P,Centromere B)are included in this screening test. Performed By: #### C 34, 6969-0, 73975-6, 6968-2, SPE, 75786-0 ####[facility] ([id number])[address] [place] [address], [address] [address]#### 2157-6 ####[facility] ([id number])5200 [place] [address] POTASSIUMon 12-03-2023 Potassium [Moles/Vol] 3.6 mmol/L Normal 3.5-5.0 [facility] Comment on above: Performed By: #### 2 823-3, 20012-3 ####[facility] ([id number])5200 [place] [address] PROTEIN CREAT RATIOon 2023 RANDOM URINE PROTEIN 130 mg/L High <120 [facility] Comment on above: Performed By: #### U PCR, UA, 2955-3 ####[facility] ([id number])5200 [place] [address] U/PRO/STORAGE ARCHITECT RATIO CALC 0.30 High <0.2 [facility] Comment on above: Result Comment: Neph rotic Syndrome is associated with ratios >3.5 Performed By: #### U PCR, UA, 2955-3 ####[facility] ([id number])5200 [place] [address] URINE CREATININE,RDM 43.64 mg/dL Normal [facility] Comment on above: Performed By: #### U PCR, UA, 2955-3 ####[facility] ([id number])5200 [place] [address] Potassiumon 12-03-2023 Potassium [Moles/Vol] 3.6 mmol/L 3.5 - 5.0 mmol/L [facility] Protein creat ratioon 2023 Creatinine (U) [Mass/Vol] 43.64 mg/dL [facility] Interpretation and review of laboratory results Abnormal [facility] Protein (U) [Mass/Vol] 130 mg/L High NINF - 120 mg/L [facility] Protein/Creatinine (U) [Ratio] 0.30 High [facility] Comment on above: Nephrotic Syndrome i s associated with ratios >3.5 Proteinase 3 AB PR3on 2023 Proteinase 3 Ab Qn (S) NINF [facility] Proteinase 3 Ab Qn (S)on Proteinase 3 IgG Ab <0.2 Normal <1.0 [facility] Comment on above: Performed By: #### C 34, 6969-0, 71738-7, 6968-2, SPE, 18585-0 ####[facility] ([id number])[address] [place] [address], [address] [address]#### 2157-6 ####[facility] ([id number])5200 [place] [address] SERUM PROTEIN ELECTROPHORESI Son 12-03-2023 Albumin [Mass/Vol] 3.1 g/dL Low 3.4-5.3 [facility] Comment on above: Performed By: #### Jamal 34, 6969-0, 71114-6, 6968-2, SPE, 42766-2 ####[facility] ([id number])[address] [place] [address], [address] [address]#### 2157-6 ####[facility] ([id number])5200 [place] [address] ALPHA 1 GLOBULIN 0.4 g/dL Normal 0.1-0.4 [facility] Comment on above: Performed By: #### C 34, 6969-0, 71046-7, 6968-2, SPE, 47873-1 ####[facility] ([id number])2130 [facility], [address] [place] [address]#### 2157-6 ####[facility] ([id number])5200 [place] [address] ALPHA 2 GLOBULIN 0.7 g/dL Normal 0.4-1.1 [facility] Comment on above: Performed By: #### C 34, 6969-0, 53145-0, 6968-2, SPE, 58281-0 ####[facility] ([id number])2130 [facility], [address] [place] [address]#### 2157-6 ####[facility] ([id number])5200 [place] [address] BETA GLOBULIN 0.7 g/dL Normal 0.5-1.2 [facility] Comment on above: Performed By: #### Jamal 34, 6969-0, 71741-1, 6968-2, SPE, 37143-1 ####[facility] ([id number])2130 [facility], [address] [place] [address]#### 2157-6 ####[facility] ([id number])5200 [place] [address] GAMMA GLOBULIN 0.6 g/dL Normal 0.5-1.6 [facility] Comment on above: Performed By: #### Jamal 34, 6969-0, 90164-6, 6968-2, SPE, 54538-5 ####[facility] ([id number])2130 [facility], [address] [place] [address]#### 2157-6 ####[facility] ([id number])5200 [place] [address] PROT. ELECTROPHORESIS INTERP Unremarkable protein distribution, no monoclonal bands. Normal [facility] Comment on above: Performed By: #### Jamal 34, 6969-0, 67206-1, 6968-2, SPE, 11129-3 ####[facility] ([id number])2130 [facility], [address] [address]#### 2157-6 ####[facility] ([id number])5200 [facility] [place] [address] Protein [Mass/Vol] 5.4 g/dL Low 6.0-8.0 [facility] Comment on above: Performed By: #### C 34, 6969-0, 04348-5, 6968-2, SPE, 60085-6 ####[facility] ([id number])2130 [facility], [address] [address]#### 2157-6 ####[facility] ([id number])5200 [place] [address] Sodium, urine, randomon Sodium (U) [Moles/Vol] 43 mmol/L [facility] Sodium (U) [Moles/Vol] 53 mmol/L [facility] URINALYSISon 12-03-2023 Bilirubin Ql (U) Negative Normal NEG [facility] Comment on above: Performed By: #### U PCR, UA, 2955-3 ####[facility] ([id number])5200 [facility] [place] [address] BLOOD/HGB Negative Normal NEG [facility] Comment on above: Performed By: #### U PCR, UA, 2955-3 ####[facility] ([id number])5200 [place] [address] Color (U) YELLOW Normal YELLOW [facility] Comment on above: Performed By: #### U PCR, UA, 2955-3 ####[facility] ([id number])5200 [place] [address] Glucose Ql (U) Negative Normal NEG [facility] Comment on above: Performed By: #### U PCR, UA, 2955-3 ####[facility] ([id number])5200 [place] [address] Ketones Ql (U) Negative Normal NEG [facility] Comment on above: Performed By: #### U PCR, UA, 2954-3 ####[facility] ([id number])5200 [place] [address] Leukocyte esterase Test strip Ql (U) Negative Normal NEG [facility] Comment on above: Performed By: #### U PCR, UA, 2954-3 ####[facility] ([id number])[address] [place] [address] Nitrite Ql (U) Negative Normal NEG [facility] Comment on above: Performed By: #### U PCR, , 3 ####[facility] ([id number])5[address] [place] [address] pH (U) 6.0 [pH] Normal 5.0-8.5 [facility] Comment on above: Performed By: #### U PCR, , 3 ####[facility] ([id number])5200 [place] [address] Protein Ql (U) Negative Normal NEG [facility] Comment on above: Performed By: #### U PCR, , 3 ####[facility] ([id number])5[address] [place] [address] Specific gravity (U) [Rel density] 1.010 Normal 1.003-1.035 [facility] Comment on above: Performed By: #### U PCR, UA, 2954-3 ####[facility] ([id number])[address] [place] [address] TURBIDITY CLEAR Normal CLEAR [facility] Comment on above: Performed By: #### U PCR, UA, 2954-3 ####[facility] ([id number])5200 [place] [address] Urobilinogen Qn (U) 0.2 {[place]sley'U}/dL Normal <1.1 [facility] Comment on above: Performed By: #### U PCR, UA, 2955-3 ####[facility] ([id number])5200 [facility] [place] [address] URINE SODIUM,RANDOMon 2023 Sodium (U) [Moles/Vol] 43 mmol/L Normal [facility] Comment on above: Performed By: #### U PCR, UA, 2955-3 ####[facility] ([id number])5200 [facility] [place] [address] Urinalysison 12-03-2023 Bilirubin Ql (U) Negative Negative^Ne g ative [facility] Color (U) YELLOW YELLOW^YELLO W [facility] Glucose (U) [Mass/Vol] Negative Negative^Neg ative mg/dL [facility] Hemoglobin Auto test strip Ql (U) Negative Negative^Neg ative [facility] Ketones (U) [Mass/Vol] Negative Negative^Neg ative mg/dL [facility] Leukocyte esterase Auto test strip Ql (U) Negative Negative^Neg ative [facility] Nitrite Auto test strip Ql (U) Negative Negative^Neg ative [facility] pH (U) 6.0 [pH] 5.0 - 8.5 [facility] Protein (U) [Mass/Vol] Negative Negative^Neg ative mg/dL [facility] Specific gravity Refractometry automated (U) [Rel density] 1.010 1.003 - 1.035 [facility] Turbidity Ql (U) CLEAR CLEAR^CLEAR [facility] Urobilinogen Qn (U) 0.2 NINF [facility] Bilirubin Ql (U) Negative Negative^Ne g ative [facility] Color (U) YELLOW YELLOW^YELLO W [facility] Epithelial cells Auto (Urine sed) [#/Area] 4 [facility] Glucose (U) [Mass/Vol] Negative Negative^Neg ative mg/dL [facility] Hemoglobin Auto test strip Ql (U) Negative Negative^Neg ative [facility] Interpretation and review of laboratory results Abnormal [facility] Ketones (U) [Mass/Vol] Negative Negative^Neg ative mg/dL [facility] Leukocyte esterase Auto test strip Ql (U) SMALL Abnormal Negative^Neg ative [facility] Nitrite Auto test strip Ql (U) Negative Negative^Neg ative [facility] pH (U) 6.0 [pH] 5.0 - 8.5 [facility] Protein (U) [Mass/Vol] Negative Negative^Neg ative mg/dL [facility] RBC Auto (Urine sed) [#/Area] 0 [facility] Specific gravity Refractometry automated (U) [Rel density] 1.010 1.003 - 1.035 [facility] Turbidity Ql (U) CLEAR CLEAR^CLEAR [facility] Urobilinogen Qn (U) 0.2 NINF [facility] WBC Auto (Urine sed) [#/Area] 7 High [facility] Urine Creatinine,randomon Creatinine (U) [Mass/Vol] 56.74 mg/dL [facility] Vancomycin [Mass/Vol]on VANCOMYCIN 34.7 ug/mL Normal 5.0-40.0 [facility] Comment on above: Result Comment: Peak 30-40 ug/mLTrough 5-20 ug/ml Performed By: #### C MP, CBC, 51288-5, 89567-8, DIFFA ####[facility] ([id number])5[address] [place] [address] Vancomycin, randomon 024 Vancomycin [Mass/Vol] 34.7 ug/mL 5.0 - 40.0 ug/mL [facility] Comment on above: Peak 30-40 ug/mL Trough 5-20 ug/ml aPTT Coag (PPP) [Time]on [facility] BLOOD CULTUREon 12-02-2023 Bacteria identified Aer cx Nom (Bld) SPECIMEN NOTES SUBOPTIMAL VOLUME OF BLOOD COLLECTED, RESULTS MAY BE AFFECTED. CULTURE RESULTS NO GROWTH 5 DAYS Normal [facility] Comment on above: Performed By: #### 1 7928-3 ####[facility] ([id number])[address], [address] [address] Bacteria identified Aer cx Nom (Bld) SPECIMEN NOTES SUBOPTIMAL VOLUME OF BLOOD COLLECTED, RESULTS MAY BE AFFECTED. CULTURE RESULTS NO GROWTH 5 DAYS Normal [facility] Comment on above: Performed By: #### 1 7928-3 ####[facility] ([id number])[address], [address] [address] CBC AND AUTO DIFFon 12-02-19 24 ABSOLUTE BASOPHIL 0.0 X10E9/L Normal 0.0-0.2 [facility] Comment on above: Performed By: #### C LUCIA, 74027-8, 81570-4, CMP ####[facility] ([id number])[address] [place] [address] ABSOLUTE NEUTROPHIL 6.3 X10E9/L Normal 1.5-6.6 [facility] Comment on above: Performed By: #### C BCA, 96277-8, 75142-5, CMP ####[facility] ([id number])[address] [place] [address] Basophils/100 WBC (Bld) 0.3 % Normal [facility] Comment on above: Performed By: #### C BCA, 89714-5, 04113-5, CMP ####[facility] ([id number])[address] [place] [address] Eosinophils (Bld) [#/Vol] 0.4 10*3/uL Normal 0.0-0.4 [facility] Comment on above: Performed By: #### Jamal BCA, 84895-9, 11646-4, CMP ####[facility] ([id number])[address] [facility] [place] [address] Eosinophils/100 WBC (Bld) 5.1 % Normal [facility] Comment on above: Performed By: #### Jamal MYERS, 77020-5, 27019-7, CMP ####[facility] ([id number])[address] [place] [address] Erythrocyte distribution width (RBC) [Ratio] 14.2 % Normal 11.5-15.0 [facility] Comment on above: Performed By: #### Jamal MYERS, 52395-7, 57977-0, CMP ####[facility] ([id number])5[address] [facility] [place] [address] Hematocrit (Bld) [Volume fraction] 26.0 % Low 35-47 [facility] Comment on above: Performed By: #### Jamal MYERS, 36826-0, 00800-4, CMP ####[facility] ([id number])5[address] [facility] [place] [address] Hemoglobin (Bld) [Mass/Vol] 9.1 g/dL Low 11.7-15.5 [facility] Comment on above: Performed By: #### Jamal MYERS, 51036-1, 87977-4, CMP ####[facility] ([id number])5[address] [facility] [place] [address] Lymphocytes (Bld) [#/Vol] 0.5 10*3/uL Low 1.0-3.5 [facility] Comment on above: Performed By: #### Jamal MYERS, 21975-0, 96691-0, CMP ####[facility] ([id number])5[address] [facility] [place] [address] Lymphocytes/100 WBC (Bld) 6.7 % Normal [facility] Comment on above: Performed By: #### Jamal MYERS, 75468-1, 35012-1, CMP ####[facility] ([id number])5[address] [facility] [place] [address] MCH (RBC) [Entitic mass] 31.6 pg Normal 27-34 [facility] Comment on above: Performed By: #### Jamal MYERS, 13523-4, 25282-1, CMP ####[facility] ([id number])[address] [facility] [place] [address] MCHC (RBC) [Mass/Vol] 35.1 g/dL Normal 32-36 [facility] Comment on above: Performed By: #### Jamal MYERS, 40489-5, 38443-4, CMP ####[facility] ([id number])5[address] [facility] [place] [address] MCV (RBC) [Entitic vol] 90 fL Normal 80-100 [facility] Comment on above: Performed By: #### Jamal MYERS, 32575-6, 29265-8, CMP ####[facility] ([id number])[address] [place] [address] Monocytes (Bld) [#/Vol] 0.6 10*3/uL Normal 0-0.9 [facility] Comment on above: Performed By: #### Jamal MYERS, 95942-6, 19301-8, CMP ####[facility] ([id number])[address] [place] [address] Monocytes/100 WBC (Bld) 7.5 % Normal [facility] Comment on above: Performed By: #### Jamal MYERS, 70241-9, 56477-5, CMP ####[facility] ([id number])[address] [place] [address] Neutrophils/100 WBC (Bld) 80.4 % Normal [facility] Comment on above: Performed By: #### Jamal BCA, 24419-9, 63038-9, CMP ####[facility] ([id number])5[address] [facility] [place] [address] Platelet mean volume (Bld) [Entitic vol] 6.7 fL Low 7-12 [facility] Comment on above: Performed By: #### Jamal MYERS, 43699-5, 42336-3, CMP ####[facility] ([id number])[address] [place] [address] Platelets (Bld) [#/Vol] 279 10*3/uL Normal 150-450 [facility] Comment on above: Performed By: #### C LUCIA, 93088-1, 31444-8, CMP ####[facility] ([id number])[address] [place] [address] RBC COUNT 2.89 X10E12/L Low 3.80-5.20 [facility] Comment on above: Performed By: #### C BCA, 82783-5, 89076-7, CMP ####[facility] ([id number])[address] [place] [address] WBC (Bld) [#/Vol] 7.8 10*3/uL Normal 4.0-11.0 [facility] Comment on above: Performed By: #### Jamal MYERS, 71431-4, 32096-2, CMP ####[facility] ([id number])[address] [place] [address] CBC auto differentialon 10-0 2-2023 Basophils (Bld) [#/Vol] 0.0 10*3/uL [facility] Basophils/100 WBC (Bld) 0.3 % [facility] Eosinophils (Bld) [#/Vol] 0.4 10*3/uL [facility] Eosinophils/100 WBC (Bld) 5.1 % [facility] Erythrocyte distribution width (RBC) [Ratio] 14.2 % 11.5 - 15.0 % [facility] Hematocrit (Bld) [Volume fraction] 26.0 % Low 35 - 47 % [facility] Hemoglobin (Bld) [Mass/Vol] 9.1 g/dL Low 11.7 - 15.5 g/dL [facility] Interpretation and review of laboratory results Abnormal [facility] Lymphocytes (Bld) [#/Vol] 0.5 10*3/uL Low [facility] Lymphocytes/100 WBC (Bld) 6.7 % [facility] MCH (RBC) [Entitic mass] 31.6 pg 27 - 34 pg [facility] MCHC (RBC) [Mass/Vol] 35.1 g/dL 32 - 36 g/dL [facility] MCV (RBC) [Entitic vol] 90 fL 80 - 100 fL [facility] Monocytes (Bld) [#/Vol] 0.6 10*3/uL [facility] Monocytes/100 WBC (Bld) 7.5 % [facility] Neutrophils (Bld) [#/Vol] 6.3 10*3/uL [facility] Neutrophils/100 WBC (Bld) 80.4 % [facility] Platelet mean volume (Bld) [Entitic vol] 6.7 fL Low 7 - 12 fL [facility] Platelets (Bld) [#/Vol] 279 10*3/uL [facility] RBC (Bld) [#/Vol] 2.89 10*6/uL Low [facility] WBC corrected for nucl RBC Auto (Bld) [#/Vol] 7.8 [facility] COMPREHENSIVE METABOLIC PANE [place] 12-02-2023 Albumin [Mass/Vol] 3.8 g/dL Normal 3.2-5.3 [facility] Comment on above: Performed By: #### C LUCIA, 37226-1, 69325-4, CMP ####[facility] ([id number])[address] [place] [address] ALP [Catalytic activity/Vol] 69 U/L Normal 39-130 [facility] Comment on above: Performed By: #### C LUCIA, 47705-6, 71951-1, CMP ####[facility] ([id number])[address] [place] [address] ALT [Catalytic activity/Vol] 12 U/L Normal 0-31 [facility] Comment on above: Performed By: #### C LUCIA, 98652-8, 64598-3, CMP ####[facility] ([id number])[address] [place] [address] Anion gap [Moles/Vol] 9 mmol/L Normal 5-15 [facility] Comment on above: Performed By: #### C BCA, 31120-7, 27721-7, CMP ####[facility] ([id number])[address] [place] [address] AST [Catalytic activity/Vol] 24 U/L Normal 0-41 [facility] Comment on above: Performed By: #### C BCA, 14073-8, 20516-4, CMP ####[facility] ([id number])[address] [place] [address] Bilirubin [Mass/Vol] 0.6 mg/dL Normal 0.3-1.2 [facility] Comment on above: Performed By: #### C BCA, 47189-4, 84934-2, CMP ####[facility] ([id number])[address] [facility] [place] [address] Calcium [Mass/Vol] 9.8 mg/dL Normal 8.5-10.5 [facility] Comment on above: Performed By: #### C BCA, 81995-1, 43129-2, CMP ####[facility] ([id number])[address] [facility] [place] [address] Chloride [Moles/Vol] 99 mmol/L Normal 98-109 [facility] Comment on above: Performed By: #### C BCA, 69545-3, 47679-6, CMP ####[facility] ([id number])5[address] [facility] [place] [address] CO2 [Moles/Vol] 25 mmol/L Normal 22-32 [facility] Comment on above: Performed By: #### C BCA, 85443-0, 81423-4, CMP ####[facility] ([id number])[address] [place] [address] Creatinine [Mass/Vol] 2.52 mg/dL High 0.40-1.00 [facility] Comment on above: Result Comment: METH OD TRACEABLE TO IDMS STANDARD Performed By: #### C BCA, 40997-6, 06966-1, CMP ####[facility] ([id number])5[address] [facility] [place] [address] GFR/1.73 sq M.predicted among non-blacks MDRD (S/P/Bld) [Vol rate/Area] 22 mL/min/{1.73_m2} Low >59 [facility] Comment on above: Result Comment: Repo rted eGFR is based on theCKD-EPI 2020 equation that doesnot use a race coefficient. Performed By: #### C BCA, 19163-9, 15006-9, CMP ####[facility] ([id number])5[address] [facility] [place] [address] Glucose [Mass/Vol] 106 mg/dL High 65-99 [facility] Comment on above: Performed By: #### Jamal MYERS, 52688-1, 43975-3, CMP ####[facility] ([id number])5[address] [facility] [place] [address] Potassium [Moles/Vol] 3.2 mmol/L Low 3.5-5.0 [facility] Comment on above: Performed By: #### C BCA, 06877-5, 60487-3, CMP ####[facility] ([id number])[address] [facility] [place] [address] Protein [Mass/Vol] 6.4 g/dL Normal 6.0-8.0 [facility] Comment on above: Performed By: #### C BCA, 96841-5, 62545-5, CMP ####[facility] ([id number])[address] [facility] [place] [address] Sodium [Moles/Vol] 133 mmol/L Low 134-146 [facility] Comment on above: Performed By: #### Jamal BCA, 94410-4, 56894-0, CMP ####[facility] ([id number])[address] [facility] [place] [address] Urea nitrogen [Mass/Vol] 27 mg/dL High 5-23 [facility] Comment on above: Performed By: #### Jamal BCA, 57865-5, 60480-4, CMP ####[facility] ([id number])5[address] [place] [address] Comprehensive metabolic pane rome 12-02-2023 Albumin [Mass/Vol] 3.8 g/dL 3.2 - 5.3 g/dL [facility] ALP [Catalytic activity/Vol] 69 U/L 39 - 130 U/L [facility] ALT No additional P-5'-P [Catalytic activity/Vol] 12 U/L 0 - 31 U/L [facility] Anion gap [Moles/Vol] 9 mmol/L 5 - 15 mmol/L [facility] AST [Catalytic activity/Vol] 24 U/L 0 - 41 U/L [facility] Bilirubin [Mass/Vol] 0.6 mg/dL 0.3 - 1 .2 mg/dL [facility] Calcium [Mass/Vol] 9.8 mg/dL 8.5 - 10. 5 mg/dL [facility] Chloride [Moles/Vol] 99 mmol/L 98 - 10 9 mmol/L [facility] CO2 [Moles/Vol] 25 mmol/L 22 - 32 mmol/L [facility] Creatinine [Mass/Vol] 2.52 mg/dL High 0.40 - 1.00 mg/dL [facility] Comment on above: METHOD TRACEABLE TO [facility] STANDARD eGFR (CKD-EPI)non-race dependent 22 Low - PINF [facility] Comment on above: Reported eGFR is based on the CKD-EPI 2020 equation that does not use a race coefficient. Glucose [Mass/Vol] 106 mg/dL High 65 - 99 mg/dL [facility] Interpretation and review of laboratory results Abnormal [facility] Potassium [Moles/Vol] 3.2 mmol/L Low 3.5 - 5.0 mmol/L [facility] Protein [Mass/Vol] 6.4 g/dL 6.0 - 8.0 g/dL [facility] Sodium [Moles/Vol] 133 mmol/L Low 134 - 146 mmol/L [facility] Urea nitrogen [Mass/Vol] 27 mg/dL High 5 - 23 mg/dL [facility] Creatinine (U) [Mass/Vol]on 12-02-2023 URINE CREATININE,RDM 56.74 mg/dL Normal [facility] Comment on above: Performed By: #### 2 161-8, UA, 2955-3 ####[facility] ([id number])[address] [place] [address] Lactate (P tayla) [Moles/Vol]o n 12-02-2023 [facility] LACTATE W/REFLEX 0.7 mmol/L Normal 0.4-2.0 [facility] Comment on above: Result Comment: Resu lt did not trigger repeat Lactate,re-order if needed. Performed By: #### C BCA, 84791-9, 37855-7, CMP ####[facility] ([id number])[address] [place] [address] Lactate w/ Reflexon 12-02-19 24 Lactate (P tayla) [Moles/Vol] 0.7 mmol/L 0.4 - 2.0 mmol/L [facility] Comment on above: Result did not trigger repeat Lactate, re-order if needed. URINALYSISon 12-02-2023 Bilirubin Ql (U) Negative Normal NEG [facility] Comment on above: Performed By: #### 2 161-8, UA, 2955-3 ####[facility] ([id number])[address] [place] [address] BLOOD/HGB Negative Normal NEG [facility] Comment on above: Performed By: #### 2 161-8, UA, 2955-3 ####[facility] ([id number])[address] [place] [address] Color (U) YELLOW Normal YELLOW [facility] Comment on above: Performed By: #### 2 161-8, UA, 2955-3 ####[facility] ([id number])[address] [place] [address] Glucose Ql (U) Negative Normal NEG [facility] Comment on above: Performed By: #### 2 161-8, UA, 2955-3 ####[facility] ([id number])5[address] [facility] [place] [address] Ketones Ql (U) Negative Normal NEG [facility] Comment on above: Performed By: #### 2 161-8, UA, 2955-3 ####[facility] ([id number])5200 [facility] [place] [address] Leukocyte esterase Test strip Ql (U) SMALL Abnormal NEG [facility] Comment on above: Performed By: #### 2 161-8, UA, 2954-3 ####[facility] ([id number])[address] [place] [address] Nitrite Ql (U) Negative Normal NEG [facility] Comment on above: Performed By: #### 2 161-8, UA, 2954-3 ####[facility] ([id number])[address] [place] [address] pH (U) 6.0 [pH] Normal 5.0-8.5 [facility] Comment on above: Performed By: #### 2 161-8, UA, 2954-3 ####[facility] ([id number])[address] [place] [address] Protein Ql (U) Negative Normal NEG [facility] Comment on above: Performed By: #### 2 161-8, UA, 2954-3 ####[facility] ([id number])[address] [place] [address] R.B.CELLS 0 /hpf Normal 0-5 [facility] Comment on above: Performed By: #### 2 161-8, UA, 2954-3 ####[facility] ([id number])[address] [place] [address] Specific gravity (U) [Rel density] 1.010 Normal 1.003-1.035 [facility] Comment on above: Performed By: #### 2 161-8, UA, 5-3 ####[facility] ([id number])[address] [place] [address] SQUAMOUS EPITHELIUM 4 /hpf Normal 0-5 [employer] Comment on above: Performed By: #### 2 161-8, UA, 2955-3 ####[facility] ([id number])[address] [place] [address] TURBIDITY CLEAR Normal CLEAR [facility] Comment on above: Performed By: #### 2 161-8, UA, 2955-3 ####[facility] ([id number])[address] [place] [address] Urobilinogen Qn (U) 0.2 {Ansley'U}/dL Normal <1.1 [facility] Comment on above: Performed By: #### 2 161-8, UA, 2955-3 ####[facility] ([id number])[address] [place] [address] W.B.CELLS 7 /hpf High 0-5 [facility] Comment on above: Performed By: #### 2 161-8, UA, 2955-3 ####[facility] ([id number])[address] [place] [address] URINE CULTUREon 12-02-2023 Bacteria identified Cx Nom (U) CULTURE RESULTS NO GROWTH AT <1000 CFU/mL Normal [facility] Comment on above: Performed By: #### 6 30-4 ####[facility] ([id number])[address] [facility] [address] [address] URINE SODIUM,RANDOMon 2023 Sodium (U) [Moles/Vol] 53 mmol/L Normal [facility] Comment on above: Performed By: #### 2 161-8, UA, 2955-3 ####[facility] ([id number])[address] [place] [address] aPTT Coag (PPP) [Time]on aPTT Coag (Bld) [Time] 35 s Normal 26-37 [facility] Comment on above: Performed By: #### C BCA, 00676-1, 25472-7, CMP ####[facility] ([id number])[address] [place] [address] BASIC METABOLIC PANLon 11-29 Anion gap [Moles/Vol] 8 mmol/L Normal 5-15 [facility] Comment on above: Performed By: #### B ADARSH, CBCA ####[facility] ([id number])5[address] [facility] [place] [address] Calcium [Mass/Vol] 9.6 mg/dL Normal 8.5-10.5 [facility] Comment on above: Performed By: #### B ADARSH, CBCA ####[facility] ([id number])5[address] [facility] [place] [address] Chloride [Moles/Vol] 105 mmol/L Normal 98-109 [facility] Comment on above: Performed By: #### B ADARSH, CBCA ####[facility] ([id number])5200 [facility] [place] [address] CO2 [Moles/Vol] 29 mmol/L Normal 22-32 [facility] Comment on above: Performed By: #### B ADARSH CBCA ####[facility] ([id number])5[address] [facility] [place] [address] Creatinine [Mass/Vol] 0.62 mg/dL Normal 0.40-1.00 [facility] Comment on above: Result Comment: METH OD TRACEABLE TO IDMS STANDARD Performed By: #### B ADARSH, CBCA ####[facility] ([id number])5200 [facility] [place] [address] eGFR (CKD-EPI) NON-RACE DEPENDENT >90 Normal >59 [facility] Comment on above: Result Comment: Repo rted eGFR is based on theCKD-EPI 2020 equation that doesnot use a race coefficient. Performed By: #### B ADARSH, CBCA ####[facility] ([id number])5200 [facility] [place] [address] Glucose [Mass/Vol] 84 mg/dL Normal 65-99 [facility] Comment on above: Performed By: #### B MP, CBCA ####[facility] ([id number])5200 [place] [address] Potassium [Moles/Vol] 3.3 mmol/L Low 3.5-5.0 [facility] Comment on above: Performed By: #### B MP, CBCA ####[facility] ([id number])5200 [place] [address] Sodium [Moles/Vol] 142 mmol/L Normal 134-146 [facility] Comment on above: Performed By: #### B MP, CBCA ####[facility] ([id number])5200 [place] [address] Urea nitrogen [Mass/Vol] 9 mg/dL Normal 5-23 [facility] Comment on above: Performed By: #### B MP, CBCA ####[facility] ([id number])5200 [place] [address] CBC AND AUTO DIFFon 11-29- 24 ABSOLUTE BASOPHIL 0.1 X10E9/L Normal 0.0-0.2 [facility] Comment on above: Performed By: #### B MP, CBCA ####[facility] ([id number])5200 [place] [address] ABSOLUTE NEUTROPHIL 4.2 X10E9/L Normal 1.5-6.6 [facility] Comment on above: Performed By: #### B MP, CBCA ####[facility] ([id number])5200 [place] [address] Basophils/100 WBC (Bld) 0.8 % Normal [facility] Comment on above: Performed By: #### B MP, CBCA ####[facility] ([id number])5200 [place] [address] Eosinophils (Bld) [#/Vol] 0.4 10*3/uL Normal 0.0-0.4 [facility] Comment on above: Performed By: #### B MP, CBCA ####[facility] ([id number])5200 [place] [address] Eosinophils/100 WBC (Bld) 6.4 % Normal [facility] Comment on above: Performed By: #### B MP, CBCA ####[facility] ([id number])5200 [facility] [place] [address] Erythrocyte distribution width (RBC) [Ratio] 13.9 % Normal 11.5-15.0 [facility] Comment on above: Performed By: #### B MP, CBCA ####[facility] ([id number])5200 [place] [address] Hematocrit (Bld) [Volume fraction] 25.2 % Low 35-47 [facility] Comment on above: Performed By: #### B MP, CBCA ####[facility] ([id number])5200 [place] [address] Hemoglobin (Bld) [Mass/Vol] 8.8 g/dL Low 11.7-15.5 [facility] Comment on above: Performed By: #### B MP, CBCA ####[facility] ([id number])5200 [place] [address] Lymphocytes (Bld) [#/Vol] 1.2 10*3/uL Normal 1.0-3.5 [facility] Comment on above: Performed By: #### B MP, CBCA ####[facility] ([id number])5200 [place] [address] Lymphocytes/100 WBC (Bld) 19.2 % Normal [facility] Comment on above: Performed By: #### B MP, CBCA ####[facility] ([id number])5200 [place] [address] MCH (RBC) [Entitic mass] 31.6 pg Normal 27-34 [facility] Comment on above: Performed By: #### B MP, CBCA ####[facility] ([id number])5200 [place] [address] MCHC (RBC) [Mass/Vol] 35.0 g/dL Normal 32-36 [facility] Comment on above: Performed By: #### B MP, CBCA ####[facility] ([id number])5200 [facility] [place] [place] [address] MCV (RBC) [Entitic vol] 90 fL Normal 80-100 [facility] Comment on above: Performed By: #### B MP, CBCA ####[facility] ([id number])5200 [facility] [place] [address] Monocytes (Bld) [#/Vol] 0.5 10*3/uL Normal 0-0.9 [facility] Comment on above: Performed By: #### B MP, CBCA ####[facility] ([id number])5200 [place] [address] Monocytes/100 WBC (Bld) 8.4 % Normal [facility] Comment on above: Performed By: #### B MP, CBCA ####[facility] ([id number])5200 [place] [address] Neutrophils/100 WBC (Bld) 65.2 % Normal [facility] Comment on above: Performed By: #### B MP, CBCA ####[facility] ([id number])5200 [facility] [place] [address] Platelet mean volume (Bld) [Entitic vol] 6.8 fL Low 7-12 [facility] Comment on above: Performed By: #### B MP, CBCA ####[facility] ([id number])5200 [facility] [place] [address] Platelets (Bld) [#/Vol] 294 10*3/uL Normal 150-450 [facility] Comment on above: Performed By: #### B MP, CBCA ####[facility] ([id number])5200 [facility] [place] [address] RBC COUNT 2.80 X10E12/L Low 3.80-5.20 [facility] Comment on above: Performed By: #### B MP, CBCA ####[facility] ([id number])5200 [place] [address] WBC (Bld) [#/Vol] 6.5 10*3/uL Normal 4.0-11.0 [facility] Comment on above: Performed By: #### B MP, CBCA ####[facility] ([id number])5200 [place] [address] CK [Catalytic activity/Vol]o n 11-28-2023 CPK 45 U/L Normal 24-170 [facility] Comment on above: Performed By: #### 2 157-6 ####[facility] ([id number])5200 [place] [address] AFB CULTURE(CONCENTRATED)on 11-27-2023 Mycobacterium sp identified Org specific cx Nom (Unsp spec) SPECIMEN NOTES SPECIMEN A AFB SMEAR NO ACID FAST BACILLI (CONCENTRATED SMEAR) 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 ([id number])2130 [facility], [address] [place] [address] ANAEROBE CULTUREon 4 Bacteria identified Anaer cx Nom (Unsp spec) SPECIMEN NOTES SPECIMEN A CULTURE RESULTS NO GROWTH 5 DAYS Normal [facility] Comment on above: Performed By: #### 6 35-3 ####[facility] ([id number])2130 [facility], [address] [address] ASPIRATE CULTUREon 4 Bacteria identified Aer cx Nom (Asp) SPECIMEN NOTES SPECIMEN A GRAM STAIN >25 WHITE BLOOD CELLS/LPF 0 SQUAMOUS EPITHELIAL CELLS/LPF NO ORGANISMS SEEN CULTURE 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 Normal [facility] Comment on above: Performed By: #### 5 97-5 ####[facility] ([id number])2130 [facility], [address] [address] BASIC METABOLIC PANLon 11-26 Anion gap [Moles/Vol] 5 mmol/L Normal 5-15 [facility] Comment on above: Performed By: #### B MP, CBC, DIFFA ####[facility] ([id number])5200 [place] [address] Calcium [Mass/Vol] 9.5 mg/dL Normal 8.5-10.5 [facility] Comment on above: Performed By: #### B MP, CBC, DIFFA ####[facility] ([id number])5200 [place] [address] Chloride [Moles/Vol] 105 mmol/L Normal 98-109 [facility] Comment on above: Performed By: #### B MP, CBC, DIFFA ####[facility] ([id number])5200 [place] [address] CO2 [Moles/Vol] 30 mmol/L Normal 22-32 [facility] Comment on above: Performed By: #### B MP, CBC, DIFFA ####[facility] ([id number])5200 [place] [address] Creatinine [Mass/Vol] 0.71 mg/dL Normal 0.40-1.00 [facility] Comment on above: Result Comment: METH OD TRACEABLE TO IDMS STANDARD Performed By: #### B MP, CBC, DIFFA ####[facility] ([id number])5200 [place] [address] eGFR (CKD-EPI) NON-RACE DEPENDENT >90 Normal >59 [facility] Comment on above: Result Comment: Repo rted eGFR is based on theCKD-EPI 2020 equation that doesnot use a race coefficient. Performed By: #### B MP, CBC, DIFFA ####[facility] ([id number])5200 [place] [address] Glucose [Mass/Vol] 101 mg/dL High 65-99 [facility] Comment on above: Performed By: #### B MP, CBC, DIFFA ####[facility] ([id number])5200 [place] [address] Potassium [Moles/Vol] 3.8 mmol/L Normal 3.5-5.0 [facility] Comment on above: Performed By: #### B MP, CBC, DIFFA ####[facility] ([id number])5[address] [place] [address] Sodium [Moles/Vol] 140 mmol/L Normal 134-146 [facility] Comment on above: Performed By: #### B MP, CBC, DIFFA ####[facility] ([id number])5200 [place] [address] Urea nitrogen [Mass/Vol] 16 mg/dL Normal 5-23 [facility] Comment on above: Performed By: #### B MP, CBC, DIFFA ####[facility] ([id number])5[address] [place] [address] COMPLETE BLOOD COUNTon 11-26 Erythrocyte distribution width (RBC) [Ratio] 13.6 % Normal 11.5-15.0 [facility] Comment on above: Performed By: #### B MP, CBC, DIFFA ####[facility] ([id number])5200 [place] [address] Hematocrit (Bld) [Volume fraction] 24.9 % Low 35-47 [facility] Comment on above: Performed By: #### B MP, CBC, DIFFA ####[facility] ([id number])5[address] [place] [address] Hemoglobin (Bld) [Mass/Vol] 8.7 g/dL Low 11.7-15.5 [facility] Comment on above: Performed By: #### B MP, CBC, DIFFA ####[facility] ([id number])5200 [place] [address] MCH (RBC) [Entitic mass] 31.5 pg Normal 27-34 [facility] Comment on above: Performed By: #### B MP, CBC, DIFFA ####[facility] ([id number])5200 [facility] [place] [address] MCHC (RBC) [Mass/Vol] 34.7 g/dL Normal 32-36 [facility] Comment on above: Performed By: #### B MP, CBC, DIFFA ####[facility] ([id number])5200 [place] [address] MCV (RBC) [Entitic vol] 91 fL Normal 80-100 [facility] Comment on above: Performed By: #### B MP, CBC, DIFFA ####[facility] ([id number])5200 [place] [address] Platelet mean volume (Bld) [Entitic vol] 6.6 fL Low 7-12 [facility] Comment on above: Performed By: #### B MP, CBC, DIFFA ####[facility] ([id number])5200 [place] [address] Platelets (Bld) [#/Vol] 267 10*3/uL Normal 150-450 [facility] Comment on above: Performed By: #### B MP, CBC, DIFFA ####[facility] ([id number])5[address] [place] [address] RBC COUNT 2.75 X10E12/L Low 3.80-5.20 [facility] Comment on above: Performed By: #### B MP, CBC, DIFFA ####[facility] ([id number])5[address] [place] [address] WBC (Bld) [#/Vol] 6.2 10*3/uL Normal 4.0-11.0 [facility] Comment on above: Performed By: #### B MP, CBC, DIFFA ####[facility] ([id number])5200 [facility] [place] [address] DIFFERENTIALon 11-27-2023 ABSOLUTE BASOPHIL 0.0 X10E9/L Normal 0.0-0.2 [facility] Comment on above: Performed By: #### B MP, CBC, DIFFA ####[facility] ([id number])5200 [place] [address] ABSOLUTE NEUTROPHIL 3.9 X10E9/L Normal 1.5-6.6 [facility] Comment on above: Performed By: #### B MP, CBC, DIFFA ####[facility] ([id number])5200 [place] [address] Basophils/100 WBC (Bld) 0.5 % Normal [facility] Comment on above: Performed By: #### B MP, CBC, DIFFA ####[facility] ([id number])5[address] [place] [address] Eosinophils (Bld) [#/Vol] 0.6 10*3/uL High 0.0-0.4 [facility] Comment on above: Performed By: #### B MP, CBC, DIFFA ####[facility] ([id number])5[address] [place] [address] Eosinophils/100 WBC (Bld) 9.2 % Normal [facility] Comment on above: Performed By: #### B MP, CBC, DIFFA ####[facility] ([id number])5200 [place] [address] Lymphocytes (Bld) [#/Vol] 1.1 10*3/uL Normal 1.0-3.5 [facility] Comment on above: Performed By: #### B MP, CBC, DIFFA ####[facility] ([id number])5[address] [place] [address] Lymphocytes/100 WBC (Bld) 17.3 % Normal [facility] Comment on above: Performed By: #### B MP, CBC, DIFFA ####[facility] ([id number])5[address] [place] [address] Monocytes (Bld) [#/Vol] 0.6 10*3/uL Normal 0-0.9 [facility] Comment on above: Performed By: #### B MP, CBC, DIFFA ####[facility] ([id number])5200 [place] [address] Monocytes/100 WBC (Bld) 9.7 % Normal [facility] Comment on above: Performed By: #### B MP, CBC, DIFFA ####[facility] ([id number])5200 [place] [address] Neutrophils/100 WBC (Bld) 63.3 % Normal [facility] Comment on above: Performed By: #### B MP, CBC, DIFFA ####[facility] ([id number])5200 [place] [address] FUNGAL CULTUREon 11-27-2023 Fungus identified Cx Nom (Unsp spec) SPECIMEN NOTES SPECIMEN A FUNGAL SMEAR NO FUNGAL ELEMENTS SEEN ON DIRECT SMEAR CULTURE RESULTS NO FUNGUS ISOLATED AFTER 4 WEEKS [facility] Comment on above: Performed By: #### 5 80-1 ####[facility] ([id number])[address], [address] [place] [address] MRSA PCR NASALon 11-27-2023 MRSA DNA KYLE+probe Ql (Unsp spec) Negative Normal NEG [facility] Comment on above: Performed By: #### 3 5492-8 ####[facility] ([id number])2130 [facility], [address] [place] [address] SEND OUT TESTon 11-27-2023 SENT TO [facility] Normal [facility] Comment on above: Result Comment: [id number] SPECIMEN LJ SLANT FROM LEFT BREAST ASPIRATE SPECIMEN A Normal [facility] TEST NAME: [facility] APPR O SUSCEPTIBILITY Normal [facility] TEST RESULT See separate report. View in OnBase or in EPIC. Normal [facility] BASIC METABOLIC PANLon 11-25 Anion gap [Moles/Vol] 8 mmol/L Normal 5-15 [facility] Comment on above: Performed By: #### 3 2132-03, BMP, 88389-1, 1987-07 ####[facility] ([id number])5200 [place] [address]#### [phone] ####[facility] ([id number])[address], [address] [address] Calcium [Mass/Vol] 9.5 mg/dL Normal 8.5-10.5 [facility] Comment on above: Performed By: #### 3 2132-03, BMP, 26516-1, 1987-07 ####[facility] ([id number])520 [place] [address]#### 37808-8 ####[facility] ([id number])[address], [address] [address] Chloride [Moles/Vol] 102 mmol/L Normal 98-109 [facility] Comment on above: Performed By: #### 3 2132-03, BMP, 98463-7, 1987-07 ####[facility] ([id number])5200 [place] [address]#### 19816-3 ####[facility] ([id number])[address], [address] [address] CO2 [Moles/Vol] 29 mmol/L Normal 22-32 [facility] Comment on above: Performed By: #### 3 2132-03, [facility], 39978-5, 1987-07 ####[facility] ([id number])5200 [place] [address]#### 36601-1 ####[facility] ([id number])[address], [address], [place] [address] Creatinine [Mass/Vol] 0.81 mg/dL Normal 0.40-1.00 [facility] Comment on above: Result Comment: METH OD TRACEABLE TO IDMS STANDARD Performed By: #### 3 2132-03, [facility], 88693-8, 1987-07 ####[facility] ([id number])5200 [place] [address]#### 68649-7 ####[facility] ([id number])2130 [facility], [address] [place] [address] GFR/1.73 sq M.predicted among non-blacks MDRD (S/P/Bld) [Vol rate/Area] 87 mL/min/{1.73_m2} Normal >59 [facility] Comment on above: Result Comment: Repo rted eGFR is based on theCKD-EPI 2020 equation that doesnot use a race coefficient. Performed By: #### 3 2132-03, [facility], 38466-6, 1987-07 ####[facility] ([id number])5200 [place] [address]#### 74701-3 ####[facility] ([id number])0 [facility], [address] [place] [address] Glucose [Mass/Vol] 97 mg/dL Normal 65-99 [facility] Comment on above: Performed By: #### 3 2132-03, [facility], 98047-7, 1987-07 ####[facility] ([id number])5[address] [place] [address]#### 97919-9 ####[facility] ([id number])2130 [facility], [address] [address] Potassium [Moles/Vol] 3.0 mmol/L Low 3.5-5.0 [facility] Comment on above: Performed By: #### 3 2132-03, [facility], 27418-9, 1987-07 ####[facility] ([id number])5200 [place] [address]#### 96722-1 ####[facility] ([id number])[address] [place] [address] Sodium [Moles/Vol] 139 mmol/L Normal 134-146 [facility] Comment on above: Performed By: #### 3 2132-03, [facility], , 1987-07 ####[facility] ([id number])5200 [place] [address]#### 48690-7 ####[facility] ([id number])[address] [place] [address] Urea nitrogen [Mass/Vol] 19 mg/dL Normal 5-23 [facility] Comment on above: Performed By: #### 3 2132-03, [place], , 1987-07 ####[facility] ([id number])5200 [place] [address]#### 20621-2 ####[facility] ([id number])[address] [place] [address] BLOOD CULTUREon 11-26-2023 Bacteria identified Aer cx Nom (Bld) CULTURE RESULTS NO GROWTH 5 DAYS Normal [facility] CRP [Mass/Vol]on 11-26-2023 C REACTIVE PROTEIN 2.6 mg/dL High 0.000-0.744 [facility] Comment on above: Performed By: #### 3 2132-03, [place], , 1987-07 ####[facility] ([id number])5200 [place] [address]#### 25308-9 ####[facility] ([id number])[address] [place] [address] ESR Photometric method (Bld) [Velocity]on 11-26-2023 ESR, ERYTHROCYTE SEDIMENTATION RATE 30 mm/h Normal 0-30 [facility] Comment on above: Performed By: #### 3 2132-03, [place], , 1987-07 ####[facility] ([id number])5200 [place] [address]#### 62489-2 ####[facility] ([id number])[address], [address] [place] [address] Lactate (P tayla) [Moles/Vol]o n 11-26-2023 LACTATE W/REFLEX 0.7 mmol/L Normal 0.4-2.0 [facility] Comment on above: Result Comment: Resu lt did not trigger repeat Lactate,re-order if needed. Performed By: #### 3 2132-, [facility], 34150-5, 1987-07 ####[facility] ([id number])5200 [place] [address]#### 48226-7 ####[facility] ([id number])[address], [address] [place] [address] Procalcitonin IA [Mass/Vol]o n 11-26-2023 PROCALCITONIN <0.05 Normal <0.05 [facility] Comment on above: Result Comment: NOTE <0.50 ng/mL - Low risk of severe sepsis and/or septic shock.<2.00 ng/mL - Recommend retesting within 6-24 hours.>2.00 ng/mL - High risk of sepsis and/or septic shock. Performed By: #### 3 2132-03, [facility], 97732-8, 1987-07 ####[facility] ([id number])5200 [place] [address]#### 33404-2 ####[facility] ([id number])[address], [address] [address] ASPIRATE CULTUREon 4 Bacteria identified Aer cx Nom (Asp) GRAM STAIN >25 WHITE BLOOD CELLS/LPF 0 SQUAMOUS EPITHELIAL CELLS/LPF NO ORGANISMS SEEN CULTURE RESULTS FEW Mycobacterium Abscessus REPORT UPDATED GROWTH OBSERVED AT 3RD DAY FOR SUSCEPTIBILITY, SEE PREVIOUS REPORT. Normal [facility] Comment on above: Performed By: #### 5 ####[facility] ([id number])2130 [facility], [address] [place] [address] Ambulatory Visit Summaryon 0 06-04-2023 Ambulatory Visit [...] choosing us for your care. Normal [facility] General Surgery Office/Clini c Noteon 06-04-2023 General Surgery Office/Clinic Note Chief Complaint post operative follow up HPI Staff 22 day post operative follow up post port insertion. Denies discomfort. no use of pain medication. Denies bleeding or drainage. Port has been accessed three times without incident. History of Present Illness s/p left subclavian [id number] insertion 3 weeks ago; doing well, mild [...] virus vaccine, inactivated 12/29/2012 Recorded Normal [facility] Comment on above: Result Comment: [...] recent PET /CT (done at [facility]) PET report also described other foci of increased uptake in the subareolar right breast consistent with other foci of carcinoma images are NOT available for comparison and no size of these foci of uptake was provided. Comparison is made to exams dated: 03/06/2023 mammogram, 03/20/2023 mammogram, 03/20/2023 ultrasound, 03/26/2023 ultrasound biopsy, 03/20/2023 ultrasound biopsy, and 03/26/2023 mammogram - [facility]. CONTRAST VOLUME ADMINISTERED: 10 mL Gadavist intravenously. CONTRAST DISCARDED: 0 mL Gadavist TECHNICAL: All images are generated with the [employer] 1.5T MRI employing 8 channel dedicated breast coils (1mm slice thickness with a .2mm gap). This machine employs a specialized trasmit-receive coil. Three-dimensional, high resolution fat suppressed T1 weighted images were obtained prior to, immediately following, and after a delay relative to gadolinium contrast administration. A precontrast T2 weighted image was also acquired. 3D image and subtraction processing was performed using [email or web address] software. The images were interpreted using image [...] MRI BI-RADS: 6: Known Biopsy Proven Malignancy Rosemary Thompson MD - 05/11/2023 MR BREAST BILAT W WO CONT W CAD BREAST MRI OF BOTH BREASTS- WITH CAD: 05/08/2023 CLINICAL: Preoperative Staging, Right breast cancer abnormal right axillary, internal mammary and subpectoral lymph nodes on recent PET /CT (done at [facility]) PET report also described other foci of increased uptake in the subareolar right breast consistent with other foci of carcinoma images are NOT available for comparison and no size of these foci of uptake was provided. Comparison is made to exams dated: 03/06/2023 mammogram, 03/20/2023 mammogram, 03/20/2023 ultrasound, 03/26/2023 ultrasound biopsy, 03/20/2023 ultrasound biopsy, and 03/26/2023 mammogram - [facility]. CONTRAST VOLUME ADMINISTERED: 10 mL Gadavist intravenously. CONTRAST DISCARDED: 0 mL Gadavist TECHNICAL: All images are generated with the [employer]'s 1.5T MRI employing 8 channel dedicated breast coils (1mm slice thickness with a .2mm gap). This machine employs a specialized trasmit-receive coil. Three-dimensional, high resolution fat suppressed T1 weighted images were obtained prior to, immediately following, and after a delay relative to gadolinium contrast administration. A precontrast T2 weighted image was also acquired. 3D image and subtraction processing was performed using [email or web address] software. The images were interpreted using image [...] MRI BI-RADS: 6: Known Biopsy Proven Malignancy [facility] Study observation (narrative) [facility] MR Breast - bilateral WO and W contrast IVOrdered By: Rosemary Gasca on 05-08-2023 [facility] Work Phone: CHEMISTRYOrdered By: eduFire SYSTEM on 04-06-2023 Anion gap [Moles/Vol] 10 [...] 023 CT Cardiac Scoring Normal [facility] DO Work Phone: Office Visit (Cardiology)on 09-29-2022 Follow-up visit Diagnoses/Problems Assessed Hypertension (401.9) (I10) Edema (782.3) (R60.9) Class 1 obesity with body mass index (BMI) of 31.0 to 31.9 in adult (278.00,V85.31) (E66.9,Z68.31) Orders Class 1 obesity with body mass index (BMI) of 31.0 to 31.9 in adult Healthy Weight Tips; Status:Complete; Done: [id number] Edema, Hypertension Basic Metabolic Panel; Status:Active; Requested for:[id number]; CT Cardiac Scoring; Status:Active; Requested for:[id number]; Patient taking Metformin or Derivatives? : No [...] and no PND. Vitals Vital Signs Recorded: [id number] 02:29PM Heart Rate76, L Radial Tqwthksv087, LUE, Sitting Zlxvqufhw88, LUE, Sitting Height5 ft 11 in Wvfsyo134 lb BMI Zncwuvdivf93.52 kg/m2 BSA Calculated2.22 Tobacco Useb) No PHQ-2 #1. Over the last 2 weeks have you felt down, depressed or hopeless? (If yes, answer PHQ-9 below)No PHQ-2 #2. Over the last 2 weeks have you felt little inter (more content not included)... Normal [facility] Tobacco Screening.on 023 Adult depression screening assessment No [facility] 250 DO Work Phone: Fall risk assessment c) Not medically indicated [facility] [employer] 250 DO Work Phone: Tobacco use status [facility]PHS b) No -[facility] 250 DO Work Phone: Tobacco Screening.on 023 Tobacco use status [facility] b) No -[facility] 250 DO Work Phone: CHEMISTRYOrdered By: SYSTEM SYSTEM on 08-15-2022 Anion gap [Moles/Vol] 10 mmol/L Normal 6 - 16 mEq/L [facility] Calcium [Mass/Vol] 9.7 mg/dL Normal 8.9 - 11. 1 mg/dL [facility] Chloride [Moles/Vol] 102 mmol/L Normal 101 - 1 11 mmol/L [facility] Creatinine [Mass/Vol] 0.7 mg/dL Normal 0.5 - 1.3 mg/dL [facility] GFR/1.73 sq M.predicted among non-blacks MDRD (S/P/Bld) [Vol rate/Area] 105 mL/min/1.73 m2 Normal >=59mL/min/1 .73 m2 [facility] Chem S Glucose [Mass/Vol] 92 mg/dL Normal 55 - 199 mg/dL [facility] Potassium [Moles/Vol] 2.9 mmol/L Low 3.5 - 5.3 mmol/L [facility] Sodium [Moles/Vol] 138 mmol/L Normal 135 - 145 mmol/L [facility] Urea nitrogen [Mass/Vol] 15 mg/dL Normal 5 - 21 mg/dL [facility] Urea nitrogen/Creatinine [Mass ratio] 21 mg/mg High 10 - 20 [facility] Laboratory - Chemistry and C hemistry - challengeOrdered By: SYSTEM SYSTEM on 08-15-2022 CO2 [Moles/Vol] 29 mmol/L Normal 21-31 [facility] Niko yuliet Laboratory - Chemistry and C hemistry - challengeOrdered By: Sandrita Bettencourt on 08-15-2022 Natriuretic peptide B (Bld) [Mass/Vol] 23 pg/mL Normal 5-80 [facility] HemeManSS No Panel Informationon 08-15 105 {mL/min/1.73_m2} Normal >=59 -[facility] 250 DO Work Phone: Comment on above: Chronic kidney disea se could be indicated at eGFR's of less than 60 mL/min/1.73m2. Kidney failure is indicated at less than 15 mL/min/1.73m2. 10 {mEq/L} Normal 6-16 [employer] DO Work Phone: 102 mmol/L Normal 101-111 [facility] [employer] DO Work Phone: 2.9 mmol/L below low threshold 3.5-5.3 [facility] [employer] DO Work Phone: 138 mmol/L Normal 135-145 [facility] [employer] DO Work Phone: 9.7 mg/dL Normal 8.9-11.1 [facility] [employer] DO Work Phone: 21 {No_Units} above high threshold 10-20 [facility] [employer] DO Work Phone: 0.7 mg/dL Normal 0.5-1.3 [facility] [employer] DO Work Phone: 15 mg/dL Normal 5-21 [facility] [employer] DO Work Phone: 92 mg/dL Normal 55-199 [facility] [employer] DO Work Phone: Comment on above: If this glucose resu lt represents a fasting glucose, interpretation should refer to the following reference range: 55-99 mg/dL Pass Normal [facility] [employer] DO Work Phone: Office Visit (Cardiology)on 07-21-2022 [...] negative for complaint. Vitals Vital Signs Recorded: [id number] 08:15AMRecorded: [id number] 08:14AM Cyoaoxwt035, RUE, Pwfoiyb881, LUE, Sitting Pmlvsqqwz15, RUE, Xqbqjnb88, LUE, Sitting Heart Rate59, Apical Height5 ft 11 in Bqvglc956 lb BMI Yrnoulbldt02.82 kg/m2 BSA Calculated2.2 Tobacco Useb) No PHQ-2 [...] Screening.on 023 Adult depression screening assessment No [facility] [employer] [facility] 250 DO Work Phone: Fall risk assessment a) No falls within the last year [facility] [employer] 250 DO Work Phone: Tobacco use status CPHS b) No [facility] [employer] 250 DO Work Phone: PAP ACOG PANEL 2: 30 to 65on 01-03-2022 . . Normal [facility] Comment on above: Result Comment: Perf ormed at: WB Performed By: #### [id number] #### [facility] [address] [place] [address] Dr. Daniel Mcgregor Age Gdln ACOG Testing 30-[address] [facility] Comment on above: Performed By: #### 4 [id number] #### [facility] [address] [address] [address] Daniel Mcgregor DIAGNOSIS: Comment Normal [facility] Comment on above: Result Comment: NEGA TIVE FOR INTRAEPITHELIAL LESION OR MALIGNANCY. Performed at: WB Performed By: #### 4 [id number] #### [facility] [address] [address] [address] Daniel Mcgregor HPV Aptima Negative Normal Negative [facility] Comment on above: Result Comment: This nucleic acid amplification test detects fourteen high-risk HPV types (16,18,31,33,35,39,45,51,52,56,58,59,66,68) without differentiation. Performed at: =G Performed By: #### 4 [id number] #### [facility] [address] [address] [address] Daniel Mcgregor HPV Genotype Reflex Comment Normal [facility] Comment on above: Result Comment: Crit eria not met, HPV Genotype not performed. Performed at: WB Performed By: #### 4 [id number] #### [facility] [address] [address] [address] Daniel Mcgregor Methodology: Comment Normal [facility] Comment on above: Result Comment: This liquid based ThinPrep(R) pap test was screened with the use of an image guided system. Performed at: WB Performed By: #### 4 [id number] #### [facility] [address] [place] [address] Dr. Daniel Mcgregor Note: Comment Normal [facility] Comment on above: Result Comment: The Pap smear is a screening test designed to aid in the detection of premalignant and malignant conditions of the uterine cervix. It is not a diagnostic procedure and should not be used as the sole means of detecting cervical cancer. Both false-positive and false-negative reports do occur. . Performed at: WB Performed By: #### 4 [id number] #### [facility] [address] [place] [address] Dr. Daniel Mcgregor Performed by: Comment Normal [facility] Comment on above: Result Comment: Roxann Ambriz, Finisher Card Tender (ASCP) Performed at: WB Performed By: #### 4 [id number] #### [facility] [address] [place] [address] Dr. Daniel Mcgregor Specimen adequacy: Comment Normal [facility] Comment on above: Result Comment: Sati sfactory for evaluation. No endocervical component is identified. Performed at: WB Performed By: #### 4 [id number] #### [facility] [address] [place] [address] Dr. Daniel Mcgregor MG MAMM SCREEN 3D VONNIE CADon 12-13-2021 MG MAMM SCREEN 3D VONNIE CAD Patient: IKE FLANNERY Exam Date: 12/13/2021 : 1970 Gender:F Ordering : DR KAYE MANUEL Admission #: [id number] Family : DR DAYANA BASHIR . Order #: [id number] CLICK HERE TO VIEW EXAM RADIOLOGY REPORT [...] Family Cancers None LOCATION: [facility] BREAST COMPOSITION: Heterogeneously dense,which may obscure small [...] Lopez MD on 12/13/2021 at 08:[address] [facility] COVID Quick Testingon 2021 Result Negative Envie de Fraises Other BASIC METABOLIC PANELon 08-31 BUN/CREATININE RATIO NOT APPLICABLE Normal 6-22 [facility] Comment on above: Performed By: #### 5 616, [id number], [id number] #### [facility] [address], [address] [place] [address] [employer] Cl[employer]: Heraclio Miller MD Calcium [Mass/Vol] 9.7 mg/dL Normal 8.6-10.4 [facility] Comment on above: Performed By: #### 5 616, 96969, 40022 #### [facility] [address], [address] [place] [address] [employer]: Heraclio Miller MD Chloride [Moles/Vol] 103 mmol/L Normal 98-110 [facility] Comment on above: Performed By: #### 5 816, 40823, 54290 #### [facility] [address] [address] [employer]oser: Heraclio Miller MD CO2 [Moles/Vol] 30 mmol/L Normal 20-32 [facility] Comment on above: Performed By: #### 5 666, 49816, 01739 #### [facility] [address] [address] [place] [address] [employer]: Heraclio Miller MD Creatinine [Mass/Vol] 0.77 mg/dL Normal 0.50-1.[address] [facility] Comment on above: Performed By: #### 5 616, 64799, 71200 #### [facility] [address], [address] [place] [address] [employer]oser: Heraclio Miller MD GFR/1.73 sq M.predicted among non-blacks MDRD (S/P/Bld) [Vol rate/Area] 94 mL/min/{1.73_m2} Normal > OR = 60 [facility] Comment on above: Result Comment: The eGFR is based on the CKD-EPI 2020 equation. To calculate the new eGFR from a previous Creatinine or Cystatin C result, go to https://www.kidney.org/professionals/ kdoqi/gfr%5Fcalculator Performed By: #### 5 616, , #### [facility] [address], [address] [place] [address] [employer]: Heraclio Miller MD Glucose [Mass/Vol] 91 mg/dL Normal 65-99 [facility] Comment on above: Result Comment: Fasting reference interval Performed By: #### 5 616, 40404, 57297 #### [facility] [address] [place] [address] [employer]: Heraclio Miller MD Potassium [Moles/Vol] 3.4 mmol/L Low 3.5-5.[address] [facility] Comment on above: Performed By: #### 5 616, 40849, 36175 #### [facility] [address], [address] [place] [address] [employer]: Heraclio Miller MD Sodium [Moles/Vol] 140 mmol/L Normal 135-146 [facility] Comment on above: Performed By: #### 5 616, 44755, 45622 #### [facility] [address] [place] [address] [employer]: Heraclio Miller MD Urea nitrogen [Mass/Vol] 11 mg/dL Normal 7-25 [facility] Comment on above: Performed By: #### 5 616, 51594, 20103 #### [facility] [address] [place] [address] [employer]: Heraclio Miller MD IRON, TIBC AND FERRITIN PANE [place] 09-21-2021 % SATURATION 10 % (calc) Low 16-45 [facility] Comment on above: Order Comment: FASTI NG:YES FASTING: YES Performed By: #### 5 616, 55451, #### [facility] [address], [address] [place] [address] [employer]: Heraclio Miller MD Ferritin [Mass/Vol] 11 ng/mL Low 16-232 [facility] Comment on above: Order Comment: FASTI NG:YES FASTING: YES Performed By: #### 5 616, , #### [facility] [address] [place] [address] [employer]: Heraclio Miller MD IRON BINDING CAPACITY 542 mcg/dL (calc) High 250-450 [facility] Comment on above: Order Comment: FASTI NG:YES FASTING: YES Performed By: #### 5 616, 22492, 46727 #### [facility] [place] [address] [employer]: Heraclio Miller MD IRON, TOTAL 54 mcg/dL Normal 45-160 [facility] Comment on above: Order Comment: FASTI NG:YES FASTING: YES Performed By: #### 5 616, 05475, 35985 #### [facility] [place] [address] [employer]: Heraclio Miller MD TSH W/REFLEX TO FT4on 2021 TSH W/REFLEX TO FT4 3.86 mIU/L Normal [facility] Comment on above: Result Comment: Refe rence Range > or = 20 Years 0.40-4.50 Ranges First trimester 0.26-2.66 Second trimester 0.55-2.73 Third trimester 0.43-2.91 Performed By: #### 5 616, 52697, 17745 #### [facility] [address], [address] [place] [address] [employer]: Heraclio Miller MD Consent Formson 09-09-2021 Consent Forms [id number] 0OTGTIFF [facility] Coding Summaryon 09-03-2021 Coding Summary HTMLBase 64 FdrnemivGPt6tNo+PGhlYW Q+TI4YWJRiH65ooTYegA7G R1hHWG8SPSNFORAUKB1IXR 3zlIO8ZEspA7EjgpHr AxvskFXpUE78YQg9TNC3lH kaIWurzC6ffTVkP6g2YvFk HX18uH11EIdnCTAxGeP2Id ZpbjsgbWFy Z1kjGvKvbYYkLcz+PHRhYm xlIHdpZHRoPScxMDAlJyBz vSyaGG6mOj9gQWKzJFIxuT xhcHNlOiBj l0dcUFXtEXudRQ4uhBgbX5 StiGK1JRDxf3x7Sm07hXF+ HWXjZIK9wVctFKequ034Ux Fuk4hxADW8 oOVuLJqoIGD2E44qx1Q1WY SgPMZbQSO1uBN4kO2dhAxm ldoeE6KstUScMoD1XQB7xA WwcE9aoVyv kpcoyN1mVpo+G53FJV9POD JGRC8CHha4Z1AgIegsuGQ+ WE18OBFfJY22gSKxhDYxv4 bqlUq0QsOn QQEhGPM7tPiqIRlpy1PdYN IpM16yjLGoj9Y5MNWceAea bHHnTmTkrVN6nJ9fWBwkfs otl4avriql Mjwtx9onox84aI35K53lWL uyHQIxHFJ3TYRkHQVcxJdj ia7yvP2dHk9+MJnwm6nts9 vgnGj3WrZr GMBsvyCztSiiBLW8n7KzJq 92H1XoyJwue9OdKzw4nj94 wZYau7Z0xBZ2WCtkLWKaeZ 4pVFvyNuW3 IRDpOzWviL87wEUvVNjgXa 2eoZycdMneTY3rMFAzlrsf YJPxzS5uEGYtvLSaoDdpPE 4wNTBpbjtm c768XiNoPOW7VVZswAAiL5 DelE7sXxQfIUEmALOlF0Td nWXkRLrwL895IHdlRiL2VA BwmkEtX8Yq YPHukGyjAfR8y5X3Yx8Ef5 EgbusrQKJ0MMcvOGZ6RsK1 AwLjYrY0L0LkLsb8UCAfmA poSW0iR3Dy BEZkwhcuiwcghYF8NPHfVA CmgR17kAAeXMkvWh7if4G9 s604GWSuYJDrfU01El3qaK ogMTBwdCBU yC4tditih7raaoczQfUrAW NwQNg6ARc6GRYwzOhzRoOi JIC4TmG5TXO2xMHoiL2sqH vmpumpnQ8b Oyc+T54mdK5nBKV1YDE6ms teUIWarlGlAN53YW52V3Wz PjwvdGFibGU+PGRpdiBzdH blGM4cUwDl z3wmc1DxRDynA9KlHPElPX hwBsb7AJWpEBB3tRE0kB5q PWVjWYosf8R6wGB9P8Jjzi Smeg4mc8xu QUVvWClmL79nsTJsa4R6PW GlzSP5RTXtfUadPpXnuL97 Oyc+ZBEuhNcxm9NiXsttk8 nmy7zomLh6 BbBcQZXztdSvdSlxKAN9c3 YzRf61W10yVQqvPKDzUMGy OXOyBZZfjLqqso1fuS0sMy 8+PGNvbCB3 qEO6mZ7iHFYhSaD3CAfhX1 76YcZfpLBhXyjdr6yjo9md oLw1RqIcRBRgdhVhsVxdLP B2w6YoEl05 J63rBVkfOIWnJJBmXWOwMK NtuYcodu2loR7qOn5+PC9j w3drnd87aP51vMR+PHRkIH U3lAtkGKtz YNMukH4nZNgaYvH7AIOrIm IhhG41zHIlFKfcKu1qtErr sRoaCZ7xVBRwjmwwf523Ey Qnn2uzERRn zJHtZWmrKOI2H60gy1V4PO JtIXGgLFF5gSF2pN4awJzz bjogbGVmdDsgdmVydGljYW bePPmjE828 IHRvcDsnPlBhdGllbnQgTm YaHBd1Y6VxJsu3XTJbzSeu EX3brXWfILwuZa6gnYqzkW dfWB8lHTCs vlhzq643BdZyt1neTFThyA OgFHbqLVP7Q06kn4D2EBBn ZYBeWYG4wWZ5aV6khZcmnt ogbGVmdDsg aaQxnDwkAHkiEMmoS764FS RvcDsnPkJpcnRoIERhdGU6 GN87YJ78hMLip1C1wZR3B9 BhZGRpbmct vtgarOM7OLUyRXKitH53Cv 7hsSndIz6yUDKmLTP8SDCz gEZnX1RglI3hLuBxGWDpCY XuN8LciJBj IVjpK004LSlxRgA4IRMcuu BtB4SxCGIioXryMwL2t3R5 Iy6SC7R3ON00CE44pZGca0 W7qHS7F0Vv SZMsjwnxgripeKU3CBTeJF KcrL27Ni6fdDdzHm7zBORm XYK2PZWmrGVjD7XflE5tSh AjMDAwMDAw R9GabSGgQAqtE980GNbmSz J0BBGloyQoD7LbSGNehBwz WcW0s6H1Uk6FKOa2YQ02BN 86pNZca2C4 dEG9A9YoNVGgqdibrzuopG W8PEQfTIYlgM89Cp5zeHoz Tc6jRENtHKR0ARHejDZmB6 WghM7hOjZy UBPwIXWdD8YroCXlHNwuF5 70BAxyNsC4MMZymkWhD4Bd LGNjyTdhAtG6k5U6Fl0KKJ HqRR21KLE2 fDA7NI96JA29K5WxNqwhfQ FibGU+PHRhYmxlIHdpZHRo XBrpLPFjEnDkxCqhLB5aJd 9yZGVyLWNv zCxnfRAzIvOnd0tdKTOsIY hlGP5fxOldN9PusFD1JNNf q2x4Gi49M40oO9NdbGZ+PG CamHH9mGN5 lK8tAnJvDiZ5VFljB129Zn HnpOXcGidba3tzx0whyQj2 BaM5OKVgoaLvnDirKLY9n4 LhFi37H24n IHdpZHRoPSIxNSUiIHZhbG wyos1hoG8nWj1+PGNvbCB3 hWJ3bB7fMhViXpO2INrgN7 49InRvcCIv Hjlge6hax5ofhCk9BrQeUL UojbRlbHrhZHH0q1IcOe60 H8DmbIwsd2RmElh1ry14zF Llj5J3cEI7 C6OuKTYzqbgoeFHauLyyLC 3iAINfqvmxUIThdR9yMLGj O3r4HlIuSpV1RKnwC1Dqxv Q2TVClyKRi XNuvDEB5R76vg2J6GIPmYV DuBVY3sPZ1wY1dsAtafboc bGVmdDsgdmVydGljYWwtYW vhU226UGCp uEwqZFBxyA4bMTMimNSjgN tqLE0vYEGzjhrhKbzXSU9R TiwgRUxJWkFCRVRIIEFOTj wvdGQ+PHRk HKQ5pQaeIKuaSXRpoU0qPK UkJ0q4AdBiYmV6IQbvT0Bc ECFknzhtIl06uW7iRjSzJn D8QQucW9Cf osW3KMYvjIKkVKbhSJT8J6 9sk4M0AQVcKMRkAWJ0pVR0 pW5gdTocikhxmIZtcDglji VydGljYWwt XKylD661HUCplLypGoI8Ss ZnAkZ1KlD5T4AtVbr8ZXTv wRdpOF2itUJqECfzMi6nwM qrzVcqCP3s RFIkrqftXSHffS6eCMLrfN UplVmzHO3nSXVfecdrz321 TeFnOXV3BLDusYDhL8WscD 9yOiAjMDAw MVRpQ1QaqJQgIFqoF491YG ctVrE0HNPncdTrM7MnDKBs mUazFuV7y5C6Jp20TOXQRW FyczwvdGQ+ MSXnVAN8iQqiFPbfGJSugE 0uGDLeF2b2LjRuUwM4OOtx I5AsDOChkhwwMr14oG1sRp KvFnD8JUic R5OlpaZ6EPRzpZDtMJjjMH D0Y30dz2W6IIOjKNEoDEP7 yNM5cM5ayZfppkmmwSTkcV sgdmVydGlj DParVAduF635LWRjxZfqOn ZFTUFMRTwvdGQ+PHRkIHN0 sIueAUubDJGwqF8eQTNqM5 x8PbSgXlO5 XOmoP0QtJRAbqgmfQb08wE 5cNfSuWyR8FZpyA8DqioY1 TBMliLSkXHjbYRZ9J67gv7 D5VUOdUNRt ELH5hWY9sH4vjXsclozxgS VmdDsgdmVydGljYWwtYWxp K392VIQicHcmDwEjsUHFrQ GbPQS8YI68 WP89D2ZvBkhnuAKxiYN+PH RhYmxlIHdpZHRoPScxMDAl SvHovHzkFF1zFx9aAPIzLR NvbGxhcHNl DiPxu3vsTYVnWXtuNH1qkD mkA3MofQM2LXEvg8t9Su71 K69hF9VfaXK+QJJkyVA3dC B6kI3nCxBz NfL5DUesS248AsVdnRVxQv zom7nix2qzoPz2QyDaYDHs ncEmvEqyJUV8i5OcJd14E6 9sIHdpZHRo ZGEtWLIeDFUxuLagwf1chT 9wIi8+RLUbdKX3wGY6rX5q FuZqDyO5WLhhF142IvSypN BeNxsqJ83k M8QpwLY+OPSsSzm5ABKapG maYG4fdZJuGVjzVz9hAXJ0 RtHtYmGaHQcoV9TdLMKxpq ctcmlnaHQ6 HKNvZJXquA23Dd5meIpsNo 0jXMEeMLQ0KHVwgMMrY7Ml dX2nQwZrKPPcNPXfE2BshU ItBIzyP005 KRpiRyY2XQEobaYkK7ScPK WpwSduOdW7u6Z7Qr3CjAjr fFOoFW2dDoHrTIt6I0UtDg d1OBKkbQzr HD6gbFEfMLlqQf7kpYniyK bvAT3pCJLmbayzt386JnRg w1igPASzpLMhEFcwZJL8E0 8wh6J3MAIl TPLmLEZ0zME4pH0evCwrav ogbGVmdDsgdmVydGljYWwt XEfdZ629AYBgoWbgHrYUOx l4Y7FkRgw2 YNRmhZovDT1xbUCoDTbaYh 0ukGeflIvuZD9hRLCuurog t321TwImf4tiGUCecNSrXG sqNZG9L06w c8H6CJWgTVGsGBK6gCN9yI 1hbGlnbjogbGVmdDsgdmVy bBmmTWzyLKpeE072THOgbX taRm0ONud6 E9MoOix0HJYofWmcFD0izW KbYQhpGc6rhBcpqOwbLM0y BWAwxzrei880HvWws5toOJ EwcHQgVGlt POT9L43gn9K5CJErKCVpRA H1dDY1gO2wuKdonowsaKOm dDsgdmVydGljYWwtYWxpZ2 46IHRvcDsn PlBheWVyOjwvdGQ+PC90cj 94O2NrYjwqEzo6YZXwDBO0 lPS4pK4cHMHkPEckm5S9gC L9R7FckyBw ci1 (more content not included)... [facility] Coding Queryon 08-27-2021 Coding Query Documentation [...] 07:54 EDT] [facility] Consent Formson 08-27-2021 Consent Forms [id number]#1.0 0OTGTIFF [facility] Telemetry Stripson Telemetry Strips [id number]#1.0 0OTGTIFF [facility] Anesthesia Noteon 08-26-2021 Anesthesia Note Patient: [...] on: 08/26/2021 14:58 EDT] Shanon Cadet MD [facility] Anesthesia Note Patient: IKE FLANNERY Age: [...] = 1 tab(s), PO, Daily Potassium Chloride (Utx-Yqci-Qix 10) 10 mEq oral tablet, extended release 10 mEq = 1 tab(s), PO, Daily traZODone 50 mg oral tablet 50 mg = 1 tab(s), PO, Once a day (at bedtime) Problem list (past medical history): All Problems Cardiac dysrhythmia / SNOMED CT 5813877054 / Confirmed HTN (hypertension) / SNOMED CT [id number] / Confirmed Histories Family History: No family history items have been selected or recorded. Procedure history: Arthroscopy of knee ([id number]) on 01/21/2021 at 50 Years. Comments: 01/21/2021 8:41 Gino Pickering RN right Abdominal hysterectomy ([id number]). Arthroscopy of knee ([id number]). Lipoma ([id number]). Comments: 01/04/2021 11:19 OSKAR Becker RN, Milana Eason excision History of tonsillectomy ([id number]). ACL - Anterior cruciate ligament rupture ([id number]). Comments: 08/12/2021 13:15 Gino Heller RN repair [...] Oriented. Review / Management Laboratory Results Plan [place] [employer]#(ASA ) physical status classification: Class II. Anesthetic Preoperative Plan Anesthesia: General. . Anesthetic plan, risks, benefits, and alternatives discussed with the patient and/or family. Patient verbalized understanding. Informed consent was given. Anesthetic technique: General anesthesia, Patient presented with diastolic HTN; this was also noted on her PST chart. Had a lengthy discussion with her regarding this. 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 Patient has reported no changes and has noted her diastolics have been above 100 for months . We discussed treating her with some labetolol here with the hope of moving forward today with her surgery. We also discussed putting a better fci plan in place regarding her hypertension. Her and her both seemed to express understanding. . [Electronically Signed on: 08/26/2021 13:29 EDT] Shanon Cadet MD [Verified on: 08/26/2021 13:29 EDT] Shanon Cadet MD [facility] Coding Summaryon 08-26-2021 Coding Summary HTMLBase 64 QznzxwvrLVd9fJd+PGhlYW Q+WP1GROAnI66vjWZwhH8V E4lTFW7HAUXMLSVKUV9IGJ 8gbSV3VLdjM7CfwnBo EerfjPTtWV51ODx4ZYA8fO ufMIgsiK1huSNnX6e1LwRj SB89bY61GTgzWAYrYsQ4Pe ZpbjsgbWFy T6iiCgAsgRSfJxj+PHRhYm xlIHdpZHRoPScxMDAlJyBz xLrmGF9iVf1jNIMdVARfsX xhcHNlOiBj l8xcUQJaBMqzNE6xkLszF5 TrhFG6GGSwn4t5Fs12tSR+ VCEdLTU1vShvHCcfz936Ws Gwb7guDSV4 oIQoSKqaVQL9I99jd9S1TS WcZFVrNTL3bLA4wL0qiYae bdofW9EwsMGkNfM9YNJ9sG ExzR9llPtw tlgnzW7zUje+Z99ERA5WHO OWJX8QSwm8W7AjEqrbbIU+ CZ47TMDrZT14jECqeELhy9 uayUg1LxDc XGSgVKH2nOlaZViwv6IvAE RqU08dfGVrn2W6SJBrnAxm fCNtQcJrlDT6hA3qRMwmwd hee9chwrgb Mgvzj9nhbc84xR79I60tOL wlKPIuCKV6GAKnVOBkwXnl hf8xrE6wAw1+IFlls0ajv6 uwlVe0YwFi BKKfwoPacZtgQPD0g8QpTy 57V7PioEepn3NmGxk4rq14 jPGdw2S3tFV8ATllNSUjmS 0aDWoxYfP1 CVCbNpMyeY56zTAgAFhzXk 8ujAfrfStqHW3pYNZmabfz LRDzbO0fXQTmsREadAmiGS 4wNTBpbjtm n665AbLvMZL0JEEbnRAuM5 SsfA9cExTrAEZqIKKdQ6Ba iTMkXCkwQ705DTmjBzA2PV ErhxGjO4Im NRXdgAbdAvI4u3G3Wq9Rf1 WjazgfYJU5GGyoDWN3ApG3 ZiAfEkV9M3QhYyh0CBYaiQ juFD8zV9Kv RNDmxaayzutzcXF3LCRgGI BbxV53gKAmFIurYh6yf2S3 z735SPHrJRMsjA64Ub7dtM ogMTBwdCBU yV1uigyks1prbaxpUqAbXY RhCBr5MVl2ZUYjmRooOwQc DZB7CtQ2MLA8nEHmwI4eqF bqytljpQ3c Oyc+M22oyA0oKJN9MDF2dy fvJBPwbcCtPI43HJ82U2Ae PjwvdGFibGU+PGRpdiBzdH hsVD6sZxKa d3uqq4AfDYeoL1OnQKWnVQ ydYwt6QGTyUXJ8iBH9qZ7t KQGiJPmwg6A4kMO1X3Jvlh Smel9sn6ao YGChNFbtO11adFVej1G0LU ZvvDM9KRMatDtmHsArqI59 Oyc+ADEjvCqtf1KlMfgpe1 vcp6bhhUt9 TpOqLFTeveVysVwmWMZ6n6 CxDt92C27lPIsyYVKjOPTy YRPrWYGogGekgz2iaP0yYy 8+PGNvbCB3 wVV7sP3tHATjNeX3PIcoH7 23DzFlyKDlDxyum9zfm0rw iXf1PtWtSTTlliJlvQenNV G8q8YxHx57 G65dFDnsKKBySOTzSWJgGX AclWwcfz1xkT8xEx4+PC9j y5agtu41gI36tVE+PHRkIH D2yXiuDCsv PBNsoK3zVXvxGrW2UDRrIu RqyM59eCZxUKtcWb5vhQhh cRksZU1yXSJtjfhwh004Fq Xpw0poWPZg jBYkALmvLMP8O55oy2F8DR LuAJJbWQM7tPI8nT3zvCyp bjogbGVmdDsgdmVydGljYW ikKUaxU333 IHRvcDsnPlBhdGllbnQgTm RdZSf7O9WqYhg2WVZhxQug KZ9ezXIiQHgsVq2obPgzzY doBI7xOCNn ksgkr776EzIog3xtNEObwA OaJQgtEZA4R13ty6L9RLGe CAPcFVL0hTR2cF6rbGbwwf ogbGVmdDsg egXtmBhyNPuyBZwtC087YY RvcDsnPkJpcnRoIERhdGU6 YF92WJ36zHLaa6D3eAS2L0 BhZGRpbmct cckriCW7QMNhLHRjcV96Ch 0weRvkTn4xTIYvXCS6XSUn kJFbA2WegQ6yVyOnPUUjVX XvC1VrmYSz YOvcR656XZkkDfW6ABIenb HzB7UuYGPbdJgyDeI8n3M6 Js2AH7X4IX65FT11nVEuy6 F1lQG8U1Ys LZGpffiiqlhuxJD2MQVjYD JzdH23Kj4muLcxFv1bHYIa PKZ8GBMhjSJgM7VknY4rOf AjMDAwMDAw K0DqiKDgBJpxL307EBnxUk Y4NQQuiyYgD9SyXPXwvZnk ZoY1d9P9Sa8XIMv8ZT26HG 08jOPxn1R1 fRY6O2XxWRPecsrjgsklrN I5KDSlNNKkhX11Hy5omYgy Dy9iBXEhEFR3KDRxiNGzL7 PbxU8qXsLu TNRpSNZeZ1RfvWFhURosO0 94ACefCxC3CYIqqkGoI9Ag KNUlvHluMrH4t7X7Mb7PLH NkXO09YBI9 hEJ0SL23TP79R5IvPtifhW FibGU+PHRhYmxlIHdpZHRo RPeoKNGvAlYqkOvsVQ1tUi 9yZGVyLWNv tCjmjTKiNkRuf9hoLPNrCW dmFA7tqEluR6JguFT1MUCs r2y6Uq30D43bB4VglDX+PG CnzFB2wPM8 fM9pSpWxFvD7YVujZ912Hn DpsDLkCcszs4qxl6cydGy1 UeS4RDGfcfSpsSpfBAP3a2 LfNq57T11g IHdpZHRoPSIxNSUiIHZhbG fgpa0fgV9aUg8+PGNvbCB3 hUL0dB6xZwNaExP9ABndC3 49InRvcCIv Hmzfw4ajo9fdpWj6MfTjSR KhbnXtgNubILX9g9IlAd97 P5TbdDwar0BfTwz1bw09sG Mgn9Y5mNW7 R6ErYGWccxjknWRhjUqmSD 9sJAHatyhvNSOvfO6nVOUe B5v8KuAiEwA9EFimS5Cuic M7CLPtaWSb GUviNXG2R78rz1S4BXYpKJ NpAZL6sQC9zI9jyLgbktzd bGVmdDsgdmVydGljYWwtYW qwH111TFZh sBqgCGMxiB7oIKUmaLQdaF onMN1tUEChiuhwXyrODY2T TiwgRUxJWkFCRVRIIEFOTj wvdGQ+PHRk LLS4lRtiOGayDFMzlH9aQZ DuX3t7ZsOsZbW8FMgzH7Wx HSNxodvjLp43zC2tKrJvEf L0MUziG4Bh xmU8XAYhiBMpHZszNRO8X1 1ou5K5GROlSGJpMJJ8eKC7 fC1lcMbsnamrlGGprCnbiz VydGljYWwt NAwrO000JGMqzCppJdA5Io XpSuD8RyH9W8MfZqg7MWXb iHdwJR4zvAYjHQncVa7rlB zydNvmRK5m XVNlkhtsVMAxqX5aEMYzpR FyjYqcZF3uZYNfgpqkw632 LwUzMNH5AXFfeHUwR1MlyQ 9yOiAjMDAw VWDwV7KdtSVcFIatG021RW ppVmG8WYBcveNnC3EoNQXs fUmsBiA5m9R6Ny60WCJBLX FyczwvdGQ+ ZRLgAHZ5cGgiJQrvGOFsfA 7wWRSzK4k0NwQxOuV3EIuc P1NtLBJvrggpRo57iV8iLt VaDpZ5IFon J6UomgY5HLIahXNmNNlhEU C1H19xa2P4GHXxDDOsBNJ2 oAV4oJ6vtSbghidurFJmnI sgdmVydGlj GMquJNmmX229CBTcwBvzQi ZFTUFMRTwvdGQ+PHRkIHN0 mSauBOecODUlgL6zZTKlV3 s6IaAmFfG7 UEoqT1LpCPVnjdoqNp66wL 9cPaClSfN4RZkcH1FuruW9 VNLpjAVxFZcoNFW5Y32tu5 B0SUZxOXJi CNS4oXK7xV8zcEhrtldwjL VmdDsgdmVydGljYWwtYWxp V118RWTxsPcjMx3NBJ52TI 60I6AbLqpe dGFibGU+PHRhYmxlIHdpZH JtRRzsJKLaSpUyvFrdGV9a Nc1dCVYzZMLhkMqckLBySo Wwt0iuWRSn KDnmMU4fwXhjR3KtpQB3XE Zoe2v1Md71V43sD2MunMH+ NBHohQZ4aVJ5lK1zYgGnPo O8CJtbH521 AjAxwGYeKlqqt9jtx4luqI x0LcWmFNHxnuDsvSnkBWF3 i8VlYo85G88lLQpiVGDoVV IyMCUiIHZh dGaszt9zjH8pMb3+PGNvbC T1fQP1vG4lPbYeSmS5COsr H271LyOxmQHnTeofK79hP4 JvdXA+PHRy Kpo6TGRdpPdwCL9hkXDuCD fvKt5eNMV7XfTkKySvBJju K0CeGSPnqnynfqpcdDP2XX HkJKNsxS50 Eg9asKlqEg0cUAJuXDC8OY OqnDVsB1CdnH9hMmPlSEDq DYQsU3KbkWCySItzL523VQ bnKkC0MXTg goUaT1DfQOAjmHzxDgY8w2 C5Ra5SzNimoKCgRQ1jBsGq LLy7F7NjLjp2MMCsuNhwIY 0ncGFkZGlu Ms6ibXzujKdiCR7uLUBhjc wzc682PnIqr7ddZPXeiDWx AHlhAOR8Y53ur7M6ELCdRJ VpPRP1sNX8 fF7lhEcqstjpqKMubDpwuv AciIadKEjbQAmtT104CLTn bLgqXcLVUwj3K7XjQms0NA YkmBcoKJ1v wESyMWjdAd6jnKmstRecLN 2rTNHuliubr393DmMvx2ez WITsoOEtZGdjCCL6X21uk1 V7TJRwPMKj PPQ7mRV4qB2esSetlnrzyG VmdDsgdmVydGljYWwtYWxp Q222SMWcbVenRv5JKhe9H6 XoZhh1JSSf rJrcGZ4guHChFLesTl2mxC yutGkaEK3uYPYmorivm954 JbVjo2ovXJHktPAbSVoeHT F5Y68pz4X0 CZDyEDJgSYX3oKF7oJ0piP lnbjogbGVmdDsgdmVydGlj NDojAPjwV508IXKjsHyuWj BheWVyOjwv dGQ+KI09ig43Y3NtEtzyHm [id number] 2ns5pmYWMe ZTo (more content not included)... Normal [facility] Inpatient Patient Summaryon 08-26-2021 Inpatient Patient Summary [address] [address] Patient Discharge Instructions Name: IKE FLANNERY LEIGH : 1970 Patient Address: [address] [place] [address] Primary Care Provider: Name: RANDY CALLE After you are discharged if you find you have any questions, please, call [phone] to speak to a nurse. [...] alcohol and/or drug addiction problems; contact the [facility] 22/09 Crisis Hotline -Text 4HHYE to 722161. If you received any narcotics, sedation, or [...] business decisions or sign any legal documents [facility] would like to thank you for [...] Have Not Changed Other Medications acetaminophen-hydrocod one (!-Toano 5 mg-325 mg oral tablet) 1 tab(s) Oral Every 6 hours as needed as needed for pain. carvedilol (carvedilol 12.5 mg oral tablet) 1 tab(s) Oral 2 times a day. cyclobenzaprine (cyclobenzaprine 10 mg oral tablet) 1 tab(s) Oral At bedtime as needed for spasm. hydroCHLOROthiazide (hydroCHLOROthiazide 25 mg oral tablet) 1 tab(s) Oral every day. potassium chloride (Potassium Chloride (Aju-Qyrx-Pny 10) 10 mEq oral tablet, extended release) [...] you can keep with you. acetaminophen-hydrocod one (!-Toano 5 mg-325 mg oral tablet) 1 tab(s) [...] Oral every day. potassium chloride (Potassium Chloride (Ufh-Ecqm-Ltj 10) 10 mEq oral tablet, extended release) [...] flow is (more content not included)... Normal [facility] MAGR Intraoperative Recordon 08-26-2021 MAGR Intraoperative Record MAGR Intra-Op Record Summary Primary Physician: Hua Oglesby DO Finalized Date/Time: 08/26/21 15:08:30 Pt. Name: IKE FLANNERY LEIGH /Sex: 1970 FEMALE Med Rec #: [id number] Physician: Hua Oglesby DO Financial #: [id number] Pt. Type: D Room/Bed: / Admit/Disch: 08/26/21 [...] Role Performed Surgeon - Primary Anesthesiologist of Molder Machine Tender Record Time In 08/26/21 14:02:00 08/26/21 14:02:00 08/26/21 14:02:00 Time Out 08/26/21 14:56:00 08/26/21 14:56:00 08/26/21 14:56:00 Procedure Arthroscopy Knee(Left) Arthroscopy Knee(Left) Arthroscopy Knee(Left) Last Modified By: Rj Eid RN, Erica RN Baumer, Erica RN 08/26/21 14:54:01 08/26/21 14:54:01 08/26/21 14:54:01 Entry 4 Entry 5 Entry 6 Case Attendee Dorothy Serrano RN, CST, Avi SHEAR SETTER Shanique Navarrete CST Role Performed Molder Machine Tender Oil Well Directional Surveyor Scrub Personnel Time In 08/26/21 14:02:00 08/26/21 [...] By Rj Eid (more content not included)... [facility] PACU Record MAGR PACU Record Summary Primary Physician: Hua Oglesby DO Finalized Date/Time: 08/26/21 15:37:09 Pt. Name: NICCHENIKE/Sex: 1970 FEMALE Med Rec #: [id number] Physician: Hua Oglesby DO Financial #: [id number] Pt. Type: D Room/Bed: / Admit/Disch: 08/26/21 11:01:00 - Institution: PACU Case Times MAGR Entry 1 In PACU I 08/26/21 14:56:00 Discharge from PACU 08/26/21 15:30:00 I Last Modified By: Elvira Navarro RN 08/26/21 15:37:04 Finalized By: Elvira Navarro RN Document Signatures Signed By: Elvira Navarro RN 08/26/21 15:37 [facility] MAGR Postoperative Recordon 08-26-2021 MAGR Postoperative Record MAGR Phase II Record Summary Primary Physician: Hua Oglesby DO Finalized Date/Time: 08/26/21 16:25:07 Pt. Name: IKE FLANNERY/Sex: 1970 FEMALE Med Rec #: [id number] Physician: Hua Oglesby DO Financial #: [id number] Pt. Type: D Room/Bed: / Admit/Disch: 08/26/21 11:01:00 - Institution: Phase II Case Times MAGR Pre-Care Text: Patient is free from s/s of injury. Patient remains free from compromised physical state related to surgery or anesthesia. Patient comfort maintained. Patient/family verbalize understanding of discharge instructions. Entry 1 In PACU II 08/26/21 15:32:00 Discharge from PACU 08/26/21 16:20:00 II Last Modified By: lEvira Navarro RN 08/26/21 16:24:59 Post-Care Text: The [...] By: Elvira Navarro RN 08/26/21 16:25 [facility] MAGR Preoperative Recordon 0 08-26-2021 MAGR Preoperative Record MAGR Pre-Op Record Summary Primary Physician: Hua Oglesby DO Finalized Date/Time: 08/26/21 15:18:23 Pt. Name: IKE FLANNERY/Sex: 1970 FEMALE Med Rec #: [id number] Physician: Hua Oglesby DO Financial #: [id number] Pt. Type: D Room/Bed: / Admit/Disch: 08/26/21 [...] By: Elvira Navarro RN 08/26/21 15:18 [facility] Operative Report - Surgeon/P aster 08-26-2021 Operative Report - Surgeon/Physician Preoperative diagnosis: Internal derangement left knee Postoperative diagnosis: Tear medial meniscus left knee, tear lateral meniscus left knee Procedure: Arthroscopic partial medial lateral meniscectomies left knee Surgeon: Max Oglesby DKati Anesthesia: General Indications for surgery: Ongoing [...] on: 08/30/2021 13:39 EDT] Hua Oglesby DO [facility] Patient Handouton 08-26-2021 Patient Handout POST [...] done to rule of a DVT. Normal [facility] Progress Note - Nurseon 08-01 Progress Note - Nurse Pre-op call done, instructed to arrive @ 1100 on 08-26-21, NPO after midnight, and need for ride to and from hospital-verbalized understanding. [Electronically Signed on: 08/23/2021 13:36 EDT] Gino Painter RN [Verified on: 08/23/2021 13:36 EDT] Gino Painter RN [facility] 2018 Novel Coronavirus (CoVI D-19), KYLE LCon 08-22-2021 SARS-CoV-2 (COVID-19) RNA KYLE+probe Ql (Unsp spec) Not detected Invalid Interpretation Code Not Detected [facility] Comment on above: Order Comment: [id number] [facility]# [phone] Result Comment: This nucleic acid amplification test was developed and its performance characteristics determined by [employer]. Nucleic acid amplification tests include RT- PCR [...] result in this assay. Performed At: [address] [id number] José Manuel Chery PhD Ph:[phone] Performed By: #### 6 [id number] ####[place] [address] Coding Summaryon 08-15-2021 Coding Summary HTMLBase 64 InsfhhwuZBa8hWo+PGhlYW Q+TX4WWICyH00tlIWawV4K M7mQCH3BWVTJVLSOQA4DWE 0ryHP4XHvnW3CnqjIw OyivfHOjDS96MBk0OVI9sH yuFKbxlY6luGJvU5e5SuWy CM94dT49UEigMVEkIvW3Cq ZpbjsgbWFy R4frRcCcjEDdRih+PHRhYm xlIHdpZHRoPScxMDAlJyBz vLfmJH3fUh6yARMcTCSknW xhcHNlOiBj g0twSMFjKPtqML5faIqkN3 RqhKZ0OVRog5n0Xm12xMX+ XJWyGHV2tXqqZAbno537Su Nls6khQBF0 eVRoUPnlDWO9W34jr1O1TY SuJNSxCFZ2mOT9iD3tcVpn bqtgN2GtyCEpVcD9QQU8bW BofT4ggMho aguvfT4dYqj+W81VGZ4YKO JJRF4IWej6L3XgLrglsMD+ ZH52MEFiAT59uVSzwSLgb9 jpgKo3VmEe WGFdTVV9zNuiQUjxe1ZcOA AmU31fqTVxd7M5JHChlDsz lXYgJaShjBI7vE4cVSenos lus0egocez Kjitk0dqvy37aG95S10rAR cvNTVyVVR6MHUoLJJgvEqg zr3jgA7cNd0+FNlqk0gpb0 rbzAi7ZhAq FWDbliJbwEgtQUG2y0GuUq 32I3NpoOcmb0SdSec7eq88 sRFen9R9cOF2FZbeYMGdhD 8wFLcgBxA8 ZLMqLtPepT12aXLlKOzhOh 4xvZmbyNptKZ0nUBFcidtc FBZyrF5iKEThtHEspHauFL 4wNTBpbjtm u453PlLlCXZ3OXSdqNCwE9 EgxH5lDkJpYJYzBGFeD1Xf rCNsLDvmV212RBbmQwT8ND AythOcC7Av EKDxbPasUxQ2n9E9Ld9Wp4 MsehiuNNX4KEboEOE2AmJ9 ZpJyJdR5H1QiOum0FFXxfW dcUD9bD8Tx UWLninlqflfruLI4TQDxKI BpfZ17aIUlVLxqXx3ya5I6 t936ZXIaLRPlyO20Vl4xnO ogMTBwdCBU jZ9ojtoec7ryxbddQmLbJN UyZMg8STd9MDPehXemFnFx XLD9IiQ2LYS0iWBxzV9otQ pwmovfuL0w Oyc+D69eyL5xHPE2JPZ9ze eqKPDicvMaZV87LH73Y2Ut PjwvdGFibGU+PGRpdiBzdH pqDI8cQlKl q7byk9JlHCleM7YiHPNvLW erPkg1RGPeNHH4jTW1cL8h QVXeGAmot5W5sTW4N1Otiv Hjja1bo6by JHLkPJyjQ53csSRup9W1XQ WkzNC6JQRfpBbwYxYnyY37 Oyc+HVRgdDjfj4BnPmcjl2 sha0eouWk3 PcOoHTBdwfYhhXuiBNX7v3 ZoRl56Y15mBHmiFFSqUEEm GLYvHIQsoLnbcg6dzG7bQk 8+PGNvbCB3 oIC5qW5wOJDcSfN9WOvlP0 85NhQqcYNhRmlrk2lcz1ag cTp1PwVsGRKdrsNanEjzEM N7s9WiBu31 Q63jIJgnCSVmVNXwUBNzQN IxyDagpy6wyQ6uWt0+PC9j v9avnk00fL05iIU+PHRkIH R6mNqjCTgs NYCknA8zUZdqFdW9ODOmMm XscU96rWWnUBoxLp4rwOza iPhpEK3aSZIrvxnbu858Px Wut2qxWTOc gNBwOUfcTDF0D51zu4E3SU LjOBTsKNV0bRF6oD6dqIlz bjogbGVmdDsgdmVydGljYW buYQtrH099 IHRvcDsnPlBhdGllbnQgTm HzWTk6X8UvFcr1YMIfrJpl IY6xxGCyPDunDl5wpLazrS xhIX6jXIUh lpnzl357UdCvv2czERZfsR GfJOowPXG7K58lx4U8KHFm MONpGUW7jWZ3mC1kfYopfj ogbGVmdDsg puHonAsqCLooEFycK692RJ RvcDsnPkJpcnRoIERhdGU6 GY01DP30sMLja6H9wMO6T7 BhZGRpbmct fzwtmDJ0VZPoULLhxD37Mc 2szGufDs6gWSXnKSH9TCMj rLFnZ8IzyZ7xEwZqCBUjQU JgT3OlqJIz SEgjU706TRqaBzZ2TNLads ZfU7RqGMPwcTobKlN4j8L9 Bb0XU0Z7BR91ND93bWUzl5 O7rDI0O0Fv ZNSqgobylamruFN8XNUsVD QrqS93Gf8xvZdlSy7gJSGf KNT0PPXrvSOyT4SutI6qUc AjMDAwMDAw Q2DwnAIsZRnuJ660JFgoPw X5QYZmluYjV1LsIVDegPft ZnN3l6Z7Ac0IWNt5OG94EO 62cJKkp0S1 cRT1F8EhJZOvzcrfvpfgkA N5VYHxPPAysT58Sg0cmYbe Hm7jDELpIPH1ZWXvkTRtN0 BbfY4qPxDu CWKdIJHnT7CnfLEbCTkkZ6 52MLjrFgL9QKJqlrDpC4Gu KHCcpRjvEqO9h9Q7Id6DGQ HtJV39BTA1 dUO5HF02VL77U5TpLojtnA FibGU+PHRhYmxlIHdpZHRo BJreZCDmZaNilJnvZR0gBr 9yZGVyLWNv yUxhzZXeEzNll8rzBAJbMQ pgVL0hfNqtO9PdeXR6LRIl m2w4Ms37V32pE3ZgjCI+PG AhyJP8qBJ4 zB0nTsNqUkX9ZQjmP245Yk JatKHbChlth9cwk8evhSf2 DdM3JJQaqnLzjPaqKHA6y3 DcNj95J71g IHdpZHRoPSIxNSUiIHZhbG jmkp8laU7aZq9+PGNvbCB3 gMI5mK4pPkIaJjL5NApiG7 49InRvcCIv Myxmj0klx4rkjLm1XgUwZT GzvoAqgTibWBW3q2GgDm38 S7JxePwqe4BmFgc0gb12uG Zgc0U5rAA4 D3WaHGQrbzajiIMfqPyuDX 7qQVMywkfdQPBmoQ7sLQUa H4g4HiNsIxO5MGveD8Niwc D4PMBfjUCy HYmnYZF9S79fh2C3KVEsUM ArPYA3vNM3oH6aqRqntmgi bGVmdDsgdmVydGljYWwtYW cmM846ABKv eEknUUXalJ3rZBPxbHMrmY pbSS9iFJPnmbldOyeXQE2Y TiwgRUxJWkFCRVRIIEFOTj wvdGQ+PHRk DNH1nAkdUMvsWVBokN5aLS BiM6g4UlGpEkS1BYfvS2Fa QLMnfwptKm74lK4vZdJwKv A4EEmnS3Oi rdA7XXPbtWNfWYrvZZC8F5 1gx2J6ALFnFRLkGBS3fTL0 xI0zzRlbukirdWWphKkiok VydGljYWwt KOesF693UAKsyRsaPhY9Bo VyJnT5RnU4Q5KoRic6HZLh bXanWX7dgRKzVUkyQb7mzJ djxIawSN7d AOYbiszpMMVvgF2gTYWqnA IsvTqwPB7zMXVhsnhnb446 QoDnDKA2QMHoyLPpD6JoyN 9yOiAjMDAw YVVzO6KrmGEeIGbeS502DW bhQlQ6AAZfwmHdE5RbLUQy mFyoZgW9d1A6Yq61ZEXZJZ FyczwvdGQ+ SUExYDI7qEiiMDehATHisO 7uWPHuQ0b4DtVcJbP5JOgd I0LjLBVqrmxsXe80mZ6hUn KoYtS6GLlv M6FpzwU0KMYysRWuVLquBS M0P96sx1K9LJCuVFKmRZG2 wHD1xX5amPomfvaeqQNsuM sgdmVydGlj OQnvOErdD515JJCbrNhbIm ZFTUFMRTwvdGQ+PHRkIHN0 bJtyYGsuQVWupR9zMZWtV3 p4XjQfCsY3 ULnhX0IvVPNpjmahZr53pH 8jPvTtZxL3MWfsD8FtwzY4 GQBjmWWlTOwbWDJ0P69mp0 E4TNPrIQDn RUR0zIW4hU4plQbwwaqugQ VmdDsgdmVydGljYWwtYWxp C568VKUgxOlkUt6BDF78PY 82S0EoNpyr dGFibGU+PHRhYmxlIHdpZH JzPRliNHCvMlPvqOaxBP2z Qh4bXKZySIJgsWyodNBeFx Woj8pgFDSt TPkqRX2snFrwQ3TvtXM3ZE Ehx6z9Is85H21hN5QdgKI+ NXZmiUH4rPY9pS5yVePqOr Z0WOqeG127 QkRunIBbCvtyv0elw4lmhF b7KsBbVSGummNdaDkhUEY6 t7NxSz89H75fQJkrVHHoYU IyMCUiIHZh nUipmo9evH7nFv4+PGNvbC J1qZH9eT7fCaIgYbP8RMfm P991PeHcuMRzGbnpB53jL5 JvdXA+PHRy Hvy5ESKoxAvwVT3jtQHbEN anUs6zFLW3PmInBeBtYYxk E5RjOTVlvzwvxlsxhMV1WS NwSVJchW66 Ed5viLdcXq7qBTCjMME2WF PhtURsJ6IzuR9cZiThLYBe LZMiD8DjfECtZNcaT616RB dfEyN6WDKg lnBiH4EdLHEaxAggAzU8z1 Q3Gx7DuDrtwQKsSW4nPsYn HJq1V7NpIiz9OKAfeKngOY 0ncGFkZGlu Dp5dkBxgbNwvRR9tQOKkrx rfb036LmWkr4asCUDgbYIf SKhkABK0T17vk9A7YYToJE LsIPF1zMD4 kM8njTlmdkokaSPomVstfj GwfPwyADklJIxwB707UAYf fGztPtRWEmj4S7IfVcj5RU DbgBeiZV8w jMQdRAgbGt1wlXwddGqpDK 9vMUIrrzreb383YeCkx7rf AFNilKEdOGupCRP8O98gh5 G8WXVlAAVy UCD4lGE0dK3xrEthktfugQ VmdDsgdmVydGljYWwtYWxp J029TUOdhMryNe6MJpl2H2 SbZti6PZQr dMzxQG5dlDItJDckPb9mvN vgwVeyYY8jDZUairqss780 YcDtv8bmFTKmtYLzPNpuAP N5T86cf7C8 DCCdUXDdZHS7iUX7mE0deX lnbjogbGVmdDsgdmVydGlj WNdhIOqnG938MWBvdJksWm BheWVyOjwv dGQ+HJ32el20Q6LkIwhsDp q2SVJtZRN5kCR0lL4pMNUq KHsfn2V5tMN2S5IxxtYhln 4to5dtIRMo ZTo (more content not included)... Normal [facility] Inpatient Patient Summaryon 08-15-2021 [place] [address] Patient Discharge Instructions Name: IKE FLANNERY : 1970 Patient Address: [address] [place] [address] Primary Care Provider: Name: RANDY CALLE After you are discharged if you find you have any questions, please, call [phone] ext [phone] to speak to a nurse. Discharge Diagnosis: Prescription Information: If you have been given a prescription for narcotics, seek immediate medical attention if you have any difficulty breathing or any sudden status changes such as confusion and sleepiness. If you or anyone you know is experiencing suicidal thoughts, mental health, alcohol and/or drug addiction problems; contact the [facility] 22/09 Crisis Hotline -Text 1PRDP rj [phone]. If you received any narcotics, sedation, or [...] business decisions or sign any legal documents [facility] would like to thank you for allowing us to assist you with your healthcare needs. The following includes patient education materials and information regarding your injury/illness. IKE FLANNERY has been given the following list of follow-up instructions, prescriptions, and patient education materials: Follow-up Instructions With: Address: When: MYESHA VINSON [address] [place] [address], [place] [address] Business (1) 09/03/2021 9:15 AM With: Address: When: [place] [address] Business (1) Medications During the course of your visit, your medication list was updated with the most current information. The details of those changes are reflected below: Medications That Were Updated - Follow Below Instructions Other Medications Updated: potassium chloride (Potassium Chloride (Nog-Kapo-Vde 10) 10 mEq oral tablet, extended release) [...] Oral every day. potassium chloride (Potassium Chloride (Prh-Puyy-Sfo 10) 10 mEq oral tablet, extended release) [...] for Disease Control and Prevention October 2013 [facility] Patient Handouton 08-15-2021 Patient Handout [facility] Progress Note - Nurseon 07-31 Progress Note - Nurse Dr. Small review s PAT information and testing results. Ok to proceed, no orders given. [Electronically Signed on: 08/14/2021 12:02 EDT] Dary Gallegos RN [Verified on: 08/14/2021 12:02 EDT] Dary Gallegos RN [facility] .Auto Diff 08-12-2021 Auto [place] % 8 % Normal 03-13 [facility] Comment on above: Performed By: #### 1 [id number], [id number], [id number] ####[facility] (DEFAULT)[address] [place] [address] Baso Abs# 0.1 x10 Normal 0.0-0.2 [facility] Comment on above: Performed By: #### 1 [id number], [id number], [id number] ####[facility] (DEFAULT)[address] [place] [address] Basophils/100 WBC (Bld) 0.9 % Normal 0.2-2.0 [facility] Comment on above: Performed By: #### 1 [id number], [id number], [id number] ####[facility] (DEFAULT)[address] [place] [address] Eos Abs# 0.3 x10 Normal 0.0-0.4 [facility] Comment on above: Performed By: #### 1 [id number], [id number], [id number] ####[facility] (DEFAULT)[address] [place] [address] Eosinophils/100 WBC (Bld) 3.9 % Normal 0.9-4.0 [facility] Comment on above: Performed By: #### 1 [id number], [id number], [id number] ####[facility] (DEFAULT)[address] [place] [address] Lymph Abs# 2.6 x10 Normal 1.3-2.9 [facility] Comment on above: Performed By: #### 1 [id number], [id number], [id number] ####[facility] (DEFAULT)[address] [place] [address] Lymphocytes/100 WBC (Bld) 30 % Normal 14-48 [facility] Comment on above: Performed By: #### 1 [id number], [id number], [id number] ####[facility] (DEFAULT)[address] [place] [address] [place] Abs# 0.7 x10 Normal 0.0-0.8 [facility] Comment on above: Performed By: #### 1 [id number], [id number], [id number] ####[facility] (DEFAULT)[address] [place] [address] Neut Abs# 5.0 x10 Normal 1.5-9.2 [facility] Comment on above: Performed By: #### 1 [id number], [id number], [id number] ####[facility] (DEFAULT)[address] [place] [address] Neutrophils/100 WBC (Bld) 58 % Normal 44-88 [facility] Comment on above: Performed By: #### 1 [id number], [id number], [id number] ####[facility] (DEFAULT)[address] [place] [address] BMP Standardon 08-12-2021 eGFR Non AA >60 Invalid Interpretation Code [facility] Comment on above: Performed By: #### 1 [id number], [id number], [id number] ####[facility] (DEFAULT)[address] [place] [address] eGFR AA >60 Invalid Interpretation Code [facility] Comment on above: Result Comment: [employer] medina Kidney disease could be indicated at eGFRs of less than 60 ml/min/1.73m2. Kidney Failure is indicated at less than 15 ml/min/1.73m2 Performed By: #### 1 [id number], [id number], [id number] ####[facility] (DEFAULT)[address] [place] [address] Anion gap [Moles/Vol] 14.0 mmol/L Normal 5.0-19.0 [facility] Comment on above: Performed By: #### 1 [id number], [id number], [id number] ####[facility] (DEFAULT)[address] [place] [address] 12952 Calcium [Mass/Vol] 9.6 mg/dL Normal 8.9-10.3 [facility] Comment on above: Performed By: #### 1 [id number], [id number], [id number] ####[facility] (DEFAULT)[address] [place] [address] 75374 Chloride [Moles/Vol] 102 mmol/L Normal 101-111 [facility] Comment on above: Performed By: #### 1 [id number], [id number], [id number] ####[facility] (DEFAULT)[address] [place] [address] 35874 CO2 [Moles/Vol] 25 mmol/L Normal 21-32 [facility] Comment on above: Performed By: #### 1 [id number], [id number], [id number] ####[facility] (DEFAULT)[address] [place] [address] 28756 Creatinine [Mass/Vol] 0.72 mg/dL Normal 0.60-1.30 [facility] Comment on above: Performed By: #### 1 [id number], [id number], [id number] ####[facility] (DEFAULT)[address] [place] [address] 11907 Glucose [Mass/Vol] 100.0 mg/dL Normal 74.0-118.0 [facility] Comment on above: Performed By: #### 1 [id number], [id number], [id number] ####[facility] (DEFAULT)[address] [place] [address] 84551 Osmolality 275 mOsm/L Invalid Interpretation Code [facility] Comment on above: Performed By: #### 1 [id number], [id number], [id number] ####[facility] (DEFAULT)[address] [place] [address] 90184 Potassium [Moles/Vol] 3.4 mmol/L Low 3.6-5.1 [facility] Comment on above: Performed By: #### 1 [id number], [id number], [id number] ####[facility] (DEFAULT)[address] [place] [address] 10648 Sodium [Moles/Vol] 138.0 mmol/L Normal 136.0-144.0 [facility] Comment on above: Performed By: #### 1 [id number], [id number], [id number] ####[facility] (DEFAULT)[address] [place] [address] 31372 Urea nitrogen [Mass/Vol] 10 mg/dL Normal 8-26 [facility] Comment on above: Performed By: #### 1 [id number], [id number], [id number] ####[facility] (DEFAULT)[address] [place] [address] 38340 Urea nitrogen/Creatinine [Mass ratio] 14.0 mg/mg Normal 4.6-16.2 [facility] Comment on above: Performed By: #### 1 [id number], [id number], [id number] ####[facility] (DEFAULT)[address] [place] [address] CBC w/ Auto Diffon 2 Erythrocyte distribution width (RBC) [Ratio] 14.6 % Normal 11.5-15.0 [facility] Comment on above: Order Comment: CBC C LOTTED. PATIENT CALLED BACK FOR RECOLLECT. Performed By: #### 1 [id number], [id number], [id number] ####[facility] (DEFAULT)[address] [place] [address] Hematocrit (Bld) [Volume fraction] 35.0 % Normal 33.7-40.4 [facility] Comment on above: Order Comment: CBC C LOTTED. PATIENT CALLED BACK FOR RECOLLECT. Performed By: #### 1 [id number], [id number], [id number] ####[facility] (DEFAULT)[address] [place] [address] Hemoglobin (Bld) [Mass/Vol] 11.0 g/dL Low 11.3-15.9 [facility] Comment on above: Order Comment: CBC C LOTTED. PATIENT CALLED BACK FOR RECOLLECT. Performed By: #### 1 [id number], [id number], [id number] ####[facility] (DEFAULT)[address] [place] [address] Instr WBC 8.6 x10 Invalid Interpretation Code [facility] Comment on above: Order Comment: CBC C LOTTED. PATIENT CALLED BACK FOR RECOLLECT. Result Comment: CBC RECOLLECTED @ 08/12/2021 15:15:27 EDT BY ALS. Performed By: #### 1 [id number] ####[facility] (DEFAULT)[address] [place] [address] Man Diff? Auto Normal [facility] Comment on above: Order Comment: CBC C LOTTED. PATIENT CALLED BACK FOR RECOLLECT. Performed By: #### 1 [id number], [id number], [id number] ####[facility] (DEFAULT)[address] [place] [address] MCH (RBC) [Entitic mass] 25 pg Normal 24-34 [facility] Comment on above: Order Comment: CBC C LOTTED. PATIENT CALLED BACK FOR RECOLLECT. Performed By: #### 1 [id number], [id number], [id number] ####[facility] (DEFAULT)[address] [place] [id number] MCHC (RBC) [Mass/Vol] 31 g/dL Normal 26-37 [facility] Comment on above: Order Comment: CBC C LOTTED. PATIENT CALLED BACK FOR RECOLLECT. Performed By: #### 1 [id number], [id number] ####[facility] (DEFAULT)[address] [place] [address] MCV (RBC) [Entitic vol] 79 fL Low 81-100 [facility] Comment on above: Order Comment: CBC C LOTTED. PATIENT CALLED BACK FOR RECOLLECT. Performed By: #### 1 [id number], [id number], [id number] ####[facility] (DEFAULT)[address] [place] [address] Platelet 491 x10 High 138-427 [facility] Comment on above: Order Comment: CBC C LOTTED. PATIENT CALLED BACK FOR RECOLLECT. Performed By: #### 1 [id number], [id number], [id number] ####[facility] (DEFAULT)[address] [place] [address] Platelet mean volume (Bld) [Entitic vol] 9.4 fL Normal 6.3-10.2 [facility] Comment on above: Order Comment: CBC C LOTTED. PATIENT CALLED BACK FOR RECOLLECT. Performed By: #### 1 [id number], [id number], [id number] ####[facility] (DEFAULT)[address] [place] [address] RBC 4.41 x10 Normal 3.70-5.30 [facility] Comment on above: Order Comment: CBC C LOTTED. PATIENT CALLED BACK FOR RECOLLECT. Performed By: #### 1 [id number], [id number], [id number] ####[facility] (DEFAULT)[address] [place] [id number] WBC 8.6 x10 Normal 3.5-10.5 [facility] Comment on above: Order Comment: CBC C LOTTED. PATIENT CALLED BACK FOR RECOLLECT. Performed By: #### 1 [id number], [id number], [id number] ####[facility] (DEFAULT)[address] [place] [address] MRI Knee w/o Lefton 07-27-19 MRI Knee [...] on 07/28/2021 1331 Normal [facility] Inker BASIC METABOLIC PANELon 03-2 BUN/CREATININE RATIO NOT APPLICABLE Normal - [facility] Comment on above: Order Comment: FASTI NG:YES FASTING: YES Performed By: #### 1 [id number] #### [facility] [address], [address] [place] [id number] [employer]: Heraclio Miller MD Calcium [Mass/Vol] 9.0 mg/dL Normal 8.6-10.4 [facility] Comment on above: Order Comment: FASTI NG:YES FASTING: YES Performed By: #### 1 [id number] #### [facility] [address], [address] [place] [address] [employer]: Heraclio Miller MD Chloride [Moles/Vol] 106 mmol/L Normal 98-110 [facility] Comment on above: Order Comment: FASTI NG:YES FASTING: YES Performed By: #### 1 [id number] #### [facility] [address], [address] [place] [address] [employer]: Heraclio Miller MD CO2 [Moles/Vol] 27 mmol/L Normal 20-32 [facility] Comment on above: Order Comment: FASTI NG:YES FASTING: YES Performed By: #### 1 [id number] #### [facility] [address], [address] [place] [address] [employer]: Heraclio Miller MD Creatinine [Mass/Vol] 0.73 mg/dL Normal 0.50-1.[address] [facility] Comment on above: Order Comment: FASTI NG:YES FASTING: YES Result Comment: For patients >49 years of age, the reference limit for Creatinine is approximately 13% higher for people identified as -[place]. Performed By: #### 1 [id number] #### [facility] [address], [address] [place] [address] [employer]: Heraclio Miller MD eGFR NON-AFR. BANGLADESHI 96 mL/min/1.73m2 Normal > OR = 60 [facility] Comment on above: Order Comment: FASTI NG:YES FASTING: YES Performed By: #### 1 [id number] #### [facility] [address], [address] [place] [address] [employer]: Heraclio Miller MD GFR/1.73 sq M.predicted among blacks MDRD (S/P/Bld) [Vol rate/Area] 111 mL/min/{1.73_m2} Normal > OR = 60 [facility] Comment on above: Order Comment: FASTI NG:YES FASTING: YES Performed By: #### 1 0165 #### [facility] [address], [address] [place] [address] Commercial Loan Closer: Heraclio Miller MD Glucose [Mass/Vol] 85 mg/dL Normal 65-99 [facility] Comment on above: Order Comment: FASTI NG:YES FASTING: YES Result Comment: Fasting reference interval Performed By: #### 1 0165 #### [facility] [place] [address] [employer] Closer: Heraclio Miller MD Potassium [Moles/Vol] 3.7 mmol/L Normal 3.5-5.[address] [facility] Comment on above: Order Comment: FASTI NG:YES FASTING: YES Performed By: #### 1 0165 #### [facility] [place] [address] [employer] Loan Closer: Heraclio Miller MD Sodium [Moles/Vol] 140 mmol/L Normal 135-146 [facility] Comment on above: Order Comment: FASTI NG:YES FASTING: YES Performed By: #### 1 0165 #### [facility] [place] [address] [employer] Loan Closer: Heraclio Miller MD Urea nitrogen [Mass/Vol] 12 mg/dL Normal 7-25 [facility] Comment on above: Order Comment: FASTI NG:YES FASTING: YES Performed By: #### 1 0165 #### [facility] [place] [address] [employer] Loan Closer: Heraclio Miller MD Coding Summaryon 01-28-2021 Coding Summary HTMLBase 64 ZjseilfyDQp0jKc+PGhlYW Q+SC9RIISqV77wdFAyjB9Y M0fGWK4XZCHKAIRTAN4SRQ 2zrYG3DBcfL6PuvtYu QqkzcCMxDL50VId2TRG4sN nmRXmvoQ2nvXDdH1s1MbKy CF04wE97SRqqNFShJqZ4En ZpbjsgbWFy H7ggZeIvrSRxIev+PHRhYm xlIHdpZHRoPScxMDAlJyBz dQdfRG1sDj9lFTKcHMUxlO xhcHNlOiBj c6qtXQCkPQplEU6amPczF0 IsmQF1KTVrf8o4Zm97fED+ DOJsBYT5rBgvVOuyb980Iz Ykx2ywDDI3 kRKmWQafTGY5L02kq1E9LP ZnXDWuTPH8eDT4zR2ymQzd jnqdJ5GmfPCyTiB0BAP0rA AxaF0fxWai xycfxU0oKbo+E26ODM4REG HEII6TJuc8R9MvEmesdYY+ TW06NHGrXM08jGKnmAEca8 gmtAe0DwBv SPHkEJI3zBbdNYcqz7ArMV YwX65umHKwq7R9QVOtlVei fUInGsQujHM4hY4rGFabjs wtw5tyzjbo Wkgsu0rrnx43bR41J62bSU rtHJYiPYL0RWOuXEOmgNnk zd2bbF1jHa4+SWbkj3tul1 qujHw3XjSm MEBouuCozAdvNBM0b9XsTc 60Q0FciJhpm4XwOcd9gn40 oSYtn9Y4qJH4ONaqCJJkfC 1mZVudEbX6 UGJmDgNhwE09oFDxCEwtYa 1jrHejfBfdAY0nOLCetlqj AIRsuF9aASFvsVHbeGzwTS 4wNTBpbjtm u799KzYqPOZ9YYDukDCdH1 BcwL7aEcOyFXNvUNQjH0Ps dNLrQLjuS310JOzvHxM0TG LwzjKdN0Vo LUCezLpjGhX1w4Z4Ar5Mj2 CjacshQAP5JPanZRMwBfM7 OnKhTyN4H1MoEqq9QOXpjH iwDU0dH0Ci FLPhlwqzahrnaPT1ZWLpPM NgfC15iDPyAYmlXg4ii2V4 r018XXRtVHPrpO45Zn0xoT ogMTBwdCBU aW0bsyqai2mcrflmZrIrEC ChYQc6FMs2NMCnmDhcZbLe YUO6FpM7OXL3vVFuiD4fsR ntdrsojV6h Oyc+G68amY8nWIY9BZO5re qdSBUmftRhCC36KW59X1Za PjwvdGFibGU+PGRpdiBzdH uiWX2hKeOm e7plk6GlMJtdX2SiPFNjKD zpEdm2JJSpPFW6eGC1qL8h POHjBJkpc3Z2yHI8V0Vdwy Obkg6kh2rc EKScZKqqN47kwQLph0P2OT YbmFC4VDJplMzeGmYiiA92 Oyc+TKRwpYcji3NbJzajd7 vou0cvyPp4 ChKpKRRtlsZmfZhlQUK8x0 WyGb11U39mVEtnELZbJRJl VPPgAHIehSjtbc3rqY1mCn 8+PGNvbCB3 fLB0eH2gHMMvBvZ3WLusA2 92JyNheKMwEyekz0gou8nh nFp2PkZjSMEeqmXooNxkBO I4w6GhWu83 J89bBEbdMORsIKDwJTHePX QnnQlwxc0gnL5xXf0+PC9j u3fmiy10hK67xLC+PHRkIH T0zJlyAGfj KLIyaX4lYXyjHkO1FCOmCh MvpS25yGPoFDpjXo0whFrt rBhyVE8tIJVngvfzw102Vv Pel4isTDTf zVSdVMynEEN3D47wn7E2CU BnTKRhKEH7vVH7zO9usZan bjogbGVmdDsgdmVydGljYW evZHkdD316 IHRvcDsnPlBhdGllbnQgTm ShARn3P4OmZiq1PTFwlDve HF2siEWhJNoiCy9akSazmO spNW8eHVBs zcsah662ZmBjj3vzSDRgyJ RjYOntJGY8V30pd0Y9IKWv JGRzMBO2hUF4fW1ciMvtnv ogbGVmdDsg ugAqsAfxDJzdLHezI149KS RvcDsnPkJpcnRoIERhdGU6 OK24MH27sFVxh6U3mTH9L3 BhZGRpbmct pmlfsDB2GAJrPLHfyP66Gq 3cqYwtHp2pFKPuKVD0EHFc bHPvA6EouW5nXpJqKLAtTQ IxC7EjvBBe MHsiX485AWpcNcS1DXBaak BzB0RdHRAjrRenOxS1f6J2 Js7HA9V7WW86ZL62fXGhz5 A9hZE6I9Mu NGVcqxbccetcjKJ2UONnRL WmjK14Dm2yjBfmXf5kLEYh NLR4TFCplNRjE5FqhH4mPo AjMDAwMDAw S8FtzTDpIZdkC774QAmdXb R4PZRamwLqK3ItPRYoqYzr HeV7j2J4Ji2HUTq6YN88ND 12dLCco3T1 vMT3A1QwFHRptgqcgtgovZ E0PKLrARVlaO03Ll2lwUez Pf1wRZAkEUJ1QPBjpJRbH1 CvmH5xTjOy VLPrMFDoH5OyzPUnXMyjB0 79EOfiZpQ0CYOykkMmC6Ya UKWkzFlxJcY6s3O4Su1FIX GgQU53WZZ1 gGY6UJ65VM71F7ZfHqhhmV FibGU+PHRhYmxlIHdpZHRo QFhwBPKkThXqtZrkDH1rEy 9yZGVyLWNv jRlwrZFkMsCkb9vrWYCbGZ icKJ3nmYyaD2DggCH2WWCw i5u9Rj19R89kY1EgoSD+PG DbbBF6qFG7 zI7wGcMlOcC3AGpuC920Ga XelZCfDpqcw2icm5nyvGv9 XoX0BPZwaaBxeKxgHXF6r6 EvXi06X81q IHdpZHRoPSIxNSUiIHZhbG wqfi7mmN6fMf3+PGNvbCB3 zFY5oW3fZaDmQhZ3SQjsV0 49InRvcCIv Gqnxi4urd5ddqQc3PjQjIO NotpChrWqrENK3y3KpXl77 I0QjdHkgo7RxRyx9xk79iV Hej1M7tEV6 P4VqRRNernxjlZLkuVrqRH 4oZFFnrdzoJDMuwV8tCBZt T3y0RnFkKpK7BHlnQ6Hdem V9IUFrlNVn MIzoWRH5I85eb0W2FJEdDR AnPMK4mGZ8tH6wjFnbalzk bGVmdDsgdmVydGljYWwtYW frZ393JGYq jChbVAGnyA5cAKAlqOVxvQ fiQO3kRZYnjurySvbXOL8G TiwgRUxJWkFCRVRIIEFOTj wvdGQ+PHRk DDL3iZwxBXcuLDZmoP3hQN BqI3d4IrQlGyG7VRdbQ4Iw JUVrnzweMn17wB8yYpKrFh X5PPlbZ3Bb jiQ0EFVaeRChOTsmUGV4G7 1gi5D4HQMbVBExKWR7dNP9 wT7glMntdyjwcUOrtQpgtg VydGljYWwt JMhmI677BOKmqXppNoS2Iq InGmP5NtQ8R4CnAdy4ORBw sNplFA2djXNnIGvpFa8cmD arlLkgMM9h YGFrkzpxAWHsmH4kQQOzeF VwiDrrQZ6iOTCwlebxd218 AyThJOH3RRMxyKFnX5YxxT 9yOiAjMDAw YNJgN3ErbNXvLAqgP940AP awEhW2WOLvlxWjY0MxORWs qCmbHoF2j5T5Lt26HEEBLS FyczwvdGQ+ YDDgLFO0tUpbKFwcIMAndP 7jLCCkT1b0YhUeRnI2LFtt B3UaSPBopyrwBy16xE6oFd UwZuT1XMbe M5WkekL3LXQenEStPZfjME B2E90kq4Y8HUSpHZEwBMA1 fSA4uL8dbGeyaopzcFGwcW sgdmVydGlj WBorOSgrM859ICEahDfqYu ZFTUFMRTwvdGQ+PHRkIHN0 cPgeTVrzFPLgnG7qTSTaS4 n5KcGsQmS9 OIkyU0CoYSGwagwnLq85dC 4nJoGkMiF1TAahJ8JpxvY1 HHXdbTCbHTkcIZL2L51ix9 K3QZDgSBNc QIR3bRE6jB8klJutedcvzO VmdDsgdmVydGljYWwtYWxp I645QFUacUxqEyBmiFXRwA QxKIH2AY47 PY32R8CkPoporSOweRE+PH RhYmxlIHdpZHRoPScxMDAl HeUawMrkCA0nFe9yFIShIC NvbGxhcHNl XuYll2jjZIYdXFspED0rtF xvP5MqpAN3RFUup3m2Gx57 T66lX3TatKH+YKVvjKH2tJ D6gP3rCdCu ImP4QLbiK273CuPsdLGtQv otu5qoh0zkoBp4FhGkUFWe deNinBdiJXK1f7XbCc38N4 9sIHdpZHRo EEIqOUTcIHGepNcdpz8nbF 9wIi8+UXHmdBD7aRS5bM0x ReAtWeZ5VSkcQ695FkXzqK TzNkrnZ76o F9RymJY+GUVcVcs3TIZbcP ixUM7qoKRwQRgwGd8wXBY8 HqWkUnFyFScvZ2RsTAQdae ctcmlnaHQ6 CFFtTZCvvF63Cq4noYikFi 4kIHVcKER0VIAxdOHyS4Bo xP8mIeCsLIRqXUUgF3CkgS WiATgmA654 HAjfEjI5YMTlmyNnB7SnXS QybTomWuU8e7T9Is9HhLbs gOFkUJ3yZcNyYOw7I7KcTe a5HFWmxGoe UY0feEFqOWtgMs5wxPpzrS icGH7oAFQrizsna286YoDu n4eqMOBsxIAzVXlgWLU5P2 9xf5Z8EVJe HXJnXXZ8hDE4hG7gvRrogo ogbGVmdDsgdmVydGljYWwt WMupA676EZUbmMejKtOCHt r1M0YnZai4 KIFymDoaSJ5nmNRiTKhaXn 6kmEfswMhrJA6xNCSssgdc o211ZuVen7euKFRebOSfFQ mtEUS2D65k r6G5WGObNSJyYPH2vGO0qI 1hbGlnbjogbGVmdDsgdmVy kGtmTQuaNMxpM336MWKaiH bvVb4NNmv1 U3RtGqg0TENlfGlnMU9qeO CyGWaoKd2wzPyrfQeeRQ0t ZJPunhmxd487WbOhg2mvEE EwcHQgVGlt SZU9I08ch7J7JXOiQIZhSH G2lKN2iF9pdZqedhzsfHBh dDsgdmVydGljYWwtYWxpZ2 46IHRvcDsn PlBheWVyOjwvdGQ+PC90cj 60A4QuNsacTiy2ZMQpHJU0 vDY6aT8uRFJoPGsfi4S6jC O3U7BpgwJr ci1 (more content not included)... [facility] Consent Formson 01-23-2021 Consent Forms [id number]#1.0 0OTGTIFF [facility] PACU Recordon 1 MAGR PACU Record MAGR PACU Record Summary Primary Physician: Hua Oglesby DO Finalized Date/Time: 01/23/21 13:00:07 Pt. Name: IKE FLANNERY /Sex: 1970 FEMALE Med Rec #: [id number] Physician: Hua Oglesby DO Financial #: [id number] Pt. Type: D Room/Bed: / Admit/Disch: 01/21/21 06:05:01 - 01/21/21 10:08:00 Institution: PACU Case Times MAGR Entry 1 In PACU I 01/21/21 08:20:00 Discharge from PACU 01/21/21 09:04:00 I Last Modified By: Lisa Connell RN 01/23/21 13:00:04 Finalized By: Lisa Connell RN Document Signatures Signed By: Lisa Connell RN 01/23/21 13:00 [facility] Consent Formson 01-22-2021 Consent Forms [id number]#1.0 [facility] Discharge Instructions [id number]#1.[address] [place] [address] Telemetry Stripson Telemetry Strips [id number]#1.0 [facility] 01-21-2021 Anesthesia Note Patient: IKE FLANNERY Age: 50 years Sex: FEMALE : 1970 Associated Diagnoses: None Author: eGn Jean MD Postoperative Information Post Operative Note: [...] on: 01/21/2021 08:25 EST] Gen Jean MD [facility] Anesthesia Note Patient: IKE FLANNERY Age: 50 years Sex: FEMALE : 1970 Associated Diagnoses: None Author: Gen Jean MD Preoperative Information Anesthesia history: Patient history: Nausea and vomiting with anesthesia, No difficult intubation, No malignant hyperthermia. Family history: No malignant hyperthermia. Review of Systems Respiratory: No shortness of breath, No apnea. Cardiovascular: No known PR, No chest pain. Gastrointestinal: No heartburn. Health [...] All Problems HTN (hypertension) / SNOMED CT 1385349234 / Confirmed Histories Family History: No family history items have been selected or recorded. Procedure history: Abdominal hysterectomy (856097646). Arthroscopy of knee (062354849). Lipoma (111860865). Comments: 01/04/2021 11:19 OSKAR Becker RN, Milana [...] Results ECG interpretation: Within normal limits. Plan [place] [employer]esthesiologists#(ASA ) physical status classification: Class II. Anesthetic Preoperative Plan Anesthesia: General. . Anesthetic plan, risks, benefits, and alternatives discussed with the patient and/or family. Patient verbalized understanding. Family/Guardian present. Informed consent was given. Consent was signed by the patient. [Electronically Signed on: 01/21/2021 07:10 EST] Gen Jean MD [Verified on: 01/21/2021 07:10 EST] Gen Jean MD Normal [facility] Inpatient Patient Summaryon 01-21-2021 Inpatient Patient Summary [address] [address] Patient Discharge Instructions Name: NICCHEN IKE ANN : 1970 Patient Address: [address] [place] [address] Primary Care Provider: Name: RANDY CALLE After you are discharged if you find you have any questions, please, call [phone] ext [phone] to speak to a nurse. Discharge Diagnosis: [...] alcohol and/or drug addiction problems; contact the [facility] 22/09 Crisis Hotline -Text 4HRSL to 982490. If you received any narcotics, sedation, or [...] business decisions or sign any legal documents [facility] would like to thank you for allowing us to assist you with your healthcare needs. The following includes patient education materials and information regarding your injury/illness. IKE FLANNERY has been given the following list of follow-up instructions, prescriptions, and patient education materials: Follow-up Instructions With: Address: When: MYESHA VINSON [address] [place] [address], [address] [place] [address] [facility] (1) 01/30/2021 11:00 AM With: Address: When: RANDY CALLE [facility] [place] [address] [facility] (1) Medications During the course of your [...] or concerns, please call the office at [phone] Viruses or Bacteria What?s got you sick? [...] (except strep) (more content not included)... Normal [facility] MAGR Intraoperative Recordon 01-21-2021 MAGR Intraoperative Record MAGR Intra-Op Record Summary Primary Physician: Hua Oglesby DO Finalized Date/Time: 01/21/21 11:10:34 Pt. Name: IKE FLANNERY LEIGH RosenO.B./Sex: 1970 FEMALE Med Rec #: [id number] Physician: Hua Oglesby DO Financial #: [id number] Pt. Type: D Room/Bed: / Admit/Disch: 01/21/21 [...] Role Performed Surgeon - Primary Anesthesiologist of [employer] Machine Tender Record Time In 01/21/21 07:22:00 01/21/21 07:22:00 01/21/21 07:22:00 Time Out 01/21/21 08:17:00 01/21/21 08:17:00 01/21/21 08:17:00 Procedure Arthroscopy Knee(Right) Arthroscopy Knee(Right) Arthroscopy Knee(Right) Last Modified By: Dorothy Serrano RN, Barbara RN Long, Barbara RN 01/21/21 08:21:11 01/21/21 08:21:11 01/21/21 08:21:11 Entry 4 Entry 5 Case Attendee Nemo Mendez CST, Regina CST Role Performed Scrub Personnel Oil Well Directional Surveyor Time In 01/21/21 07:22:00 01/21/21 07:22:00 Time [...] Post-Care T (more content not included)... [facility] Postoperative Record MAGR Phase II Record Summary Primary Physician: Hua Oglesby DO Finalized Date/Time: 01/21/21 10:17:55 Pt. Name: NICCHEN IKEFOREST Gard[place]/Sex: 1970 FEMALE Med Rec #: [id number] Physician: Hua Oglesby DO Financial #: [id number] Pt. Type: D Room/Bed: / Admit/Disch: 01/21/21 [...] Signed By: Marianna Gerber RN 01/21/21 10:17 [facility]2020 [facility] Preoperative Record MAGR Pre-Op Record Summary Primary Physician: Hua Oglesby DO Finalized Date/Time: 01/21/21 08:40:07 Pt. Name: IKE FLANNERY LEIGH /Sex: 1970 FEMALE Med Rec #: [id number] Physician: Hua Oglesby DO Financial #: [id number] Pt. Type: D Room/Bed: / Admit/Disch: 01/21/21 [...] Signed By: Gino Painter RN 01/21/21 08:40 [facility] Operative Report - Surgeon/P briangalo 01-21-2021 Operative Report - Surgeon/Physician Preoperative diagnosis: [...] 01/21/2021 10:16 EST] Hua Oglesby DO Normal [facility] Patient Handouton 01-21-[address] [...] or concerns, please call the office at [phone] [facility] COMPREHENSIVE METABOLIC PANE [facility] 01-12-2021 Albumin [Mass/Vol] 4.3 g/dL Normal 3.6-5.1 [facility] Comment on above: Performed By: #### 7 824, 20121 #### [facility] [address] [address] Commercial Loan Closer: Heraclio Miller MD Albumin/Globulin [Mass ratio] 1.8 {ratio} Normal 1.0-2.5 [facility] Comment on above: Performed By: #### 7 600, 96950 #### [facility] [address] [address] [employer] Closer: Heraclio Miller MD ALP [Catalytic activity/Vol] 60 U/L Normal 37-153 [facility] Comment on above: Performed By: #### 7 600, 90654 #### [facility] [address], [address] [place] [address] Commercial Loan Closer: Heraclio Miller MD ALT [Catalytic activity/Vol] 17 U/L Normal 6-29 [facility] Comment on above: Performed By: #### 7 600, 81125 #### [facility] of [place] [address] Commercial Loan Closer: Heraclio Miller MD AST [Catalytic activity/Vol] 18 U/L Normal 10-35 [facility] Comment on above: Performed By: #### 7 600, 38208 #### [facility] of [address], [address] [place] [address] Commercial Loan Closer: Heraclio Miller MD Bilirubin [Mass/Vol] 1.1 mg/dL Normal 0.2-1.2 [facility] Comment on above: Performed By: #### 7 600, 61346 #### [facility] of [address], [address] [place] [address] [employer] Closer: Heraclio Miller MD BUN/CREATININE RATIO NOT APPLICABLE Normal 6-22 [facility] Comment on above: Performed By: #### 7 600, 46725 #### [facility] of [place] [address] [employer] Loan Closer: Heraclio Miller MD Calcium [Mass/Vol] 9.3 mg/dL Normal 8.6-10.4 [facility] Comment on above: Performed By: #### 7 600, 07000 #### [facility] [place] [address] [employer] Closer: Heraclio Miller MD Chloride [Moles/Vol] 105 mmol/L Normal 98-110 [facility] Comment on above: Performed By: #### 7 600, 62022 #### [facility] [place] [address] [employer] Loan Closer: Heraclio Miller MD CO2 [Moles/Vol] 28 mmol/L Normal 20-32 [facility] Comment on above: Performed By: #### 7 600, 64108 #### [facility] of [place] [address], [address] [place] [address] Commercial [employer] Closer: Heraclio Miller MD Creatinine [Mass/Vol] 0.86 mg/dL Normal 0.50-1.[address] [facility] Comment on above: Result Comment: For patients >49 years of age, the reference limit for Creatinine is approximately 13% higher for people identified as -[place]. Performed By: #### 7 600, 08838 #### [facility] [place] [address] [employer] Loan Closer: Heraclio Miller MD eGFR NON-AFR. BANGLADESHI 79 mL/min/1.73m2 Normal > OR = 60 [facility] Comment on above: Performed By: #### 7 600, 34810 #### [facility] [place] [address] [employer] Loan Closer: Heraclio Miller MD GFR/1.73 sq M.predicted among blacks MDRD (S/P/Bld) [Vol rate/Area] 91 mL/min/{1.73_m2} Normal > OR = 60 [facility] Comment on above: Performed By: #### 7 600, 97153 #### [facility] [place] [address] [employer] Loan Closer: Heraclio Miller MD Globulin (S) [Mass/Vol] 2.4 g/dL Normal 1.9-3.7 [facility] Comment on above: Performed By: #### 7 600, 79709 #### [facility] [place] [address] [employer] Loan Closer: Heraclio Miller MD Glucose [Mass/Vol] 86 mg/dL Normal 65-139 [facility] Comment on above: Result Comment: Non-fasting reference interval Performed By: #### 7 600, 38882 #### [facility] [place] [address] [employer] Loan Closer: Heraclio Miller MD Potassium [Moles/Vol] 3.9 mmol/L Normal 3.5-5.[address] [facility] Comment on above: Performed By: #### 7 600, 43326 #### [facility] of [address], [address] [place] [address] Commercial Loan Closer: Heraclio Miller MD Protein [Mass/Vol] 6.7 g/dL Normal 6.1-8.1 [facility] Comment on above: Performed By: #### 7 600, 11308 #### [facility] of [address], [address] [place] [address] Commercial Loan Closer: Heraclio Miller MD Sodium [Moles/Vol] 140 mmol/L Normal 135-146 [facility] Comment on above: Performed By: #### 7 600, 47292 #### [facility] of [address], [address] [place] [address] Commercial Loan Closer: Heraclio Miller MD Urea nitrogen [Mass/Vol] 15 mg/dL Normal 7-25 [facility] Comment on above: Performed By: #### 7 600, 56993 #### [facility] [place] [address] [employer] Loan Closer: Heraclio Miller MD LIPID PANEL, [facility] 11- Cholesterol [Mass/Vol] 173 mg/dL Normal <200 [facility] Comment on above: Order Comment: FASTI NG:NO FASTING: NO Performed By: #### 7 600, 67967 #### [facility] [place] [address] [employer] Loan Closer: Heraclio Miller MD Cholesterol in HDL [Mass/Vol] 69 mg/dL Normal > OR = 50 [facility] Comment on above: Order Comment: FASTI NG:NO FASTING: NO Performed By: #### 7 600, 10551 #### [facility] [place] [address] [employer] Loan Closer: Heraclio Miller MD Cholesterol in LDL [Mass/Vol] [...] LDL-C. Campos CAMARENA et al. MARQUISE. 2013;310(19): 7145-7600 (http://education.Kapitall/faq/OON545) Performed By: #### 7 600, 73213 #### [facility] [address], [address] [place] [address] Commercial Loan Closer: Heraclio Miller MD Cholesterol.total/Cho lesterol in HDL [Mass ratio] 2.5 {ratio} Normal <5.0 [facility] Comment on above: Order Comment: FASTI NG:NO FASTING: NO Performed By: #### 7 600, 41909 #### [facility] [address], [address] [place] [address] Commercial Loan Closer: Heraclio Miller MD NON HDL CHOLESTEROL 104 mg/dL (calc) Normal <130 [facility] Comment on above: Order Comment: FASTI NG:NO FASTING: NO Result Comment: For patients with diabetes plus 1 major ASCVD risk factor, treating to a non-HDL-C goal of <100 mg/dL (LDL-C of <70 mg/dL) is considered a therapeutic option. Performed By: #### 7 600, 96604 #### [facility] [address], [address] [place] [address] Commercial Loan Closer: Heraclio Miller MD Triglyceride [Mass/Vol] 68 mg/dL Normal <150 [facility] Comment on above: Order Comment: FASTI NG:NO FASTING: NO Performed By: #### 7 600, 72772 #### [facility] [place] [address] Commercial Loan Closer: Heraclio Miller MD Coding Summaryon 01-09-2021 Coding Summary HTMLBase 64 AunpsbkpQQk1lYx+PGhlYW Q+RG8XXPIaL12bfFXwhB6H S5mUET8BYKLGGVTWHG6XGV 6dtGF4TIfrU7ZnwgTk OaowxEHnFK83EAf1YGK8nP ttEEhjhP4dqQPoV9q1DjZa OU32lZ13KWsnFXIuPvM9Kh ZpbjsgbWFy U1vyAlWgqEOfJve+PHRhYm xlIHdpZHRoPScxMDAlJyBz nGbnZD6aHo4lMMUwEGRtuM xhcHNlOiBj s3bfSIYbEQjlGT8uqFzcK0 UhnCX5VBSgc1m9Tn41vVF+ OYUyGDK9nYbfHWoye409Ov Wvr6flXOP4 uDWpERdnWDO5B09ck8Q5XS XoLMBiSGD7yEF6rH5tnMuk sjsvU6WqnYSaTeB5EIO5lO VhnA7lpUvx dgjzzH7kCoc+P98RTB7RJE INRT4BTql3J9BdSazxmOR+ ZI69QNSdTG91tFBklLJdv3 qtrTl6DzWn PQVnXTK3iTznGWkzc9TpMG XzA74kqPQgg5M6FGUpiPcc eFQhUpEcoKR1eK8cXChrcj iao4yvascc Iwgzv1hxmn56jB45C16nPN zmMRUgFXX4KNPqPFIbjQwa xi1fwI0lAs2+KYauk1saa2 zgsWf5KqXi OLUesvXfsRzmKLJ7r8QnBf 00O4BkqRdxh3WjLyt1mh64 nVCef1G2kEL3YIngRKAvkQ 7ySKjoKmI3 NBMhPuIsmQ70rJOzUQhzOt 6iiEoaqJhhPQ0bLSQcrylb WXIvtV7rDLKacNPxyGrrRZ 4wNTBpbjtm w068AhNwIAJ5PKZdpMYeX8 YbnD1lJcMjXOScDMHeC5Iz mCEsBXreR917TPrkGbZ5UE YjldMrL9Jb CTIglTtaCuG6e9P2Wd2Re2 FfpaauKTZ4FHmmNCLnDqOj YvEsLmQ9P6PqGji4RYBkxA wsBF1zN5Zz KKSsprcifzcbdCE9KOSzPQ BrxG13uOIkHSvdUh8zv2M5 d359YPQmWBFhqI89Fo9uoJ ogMTBwdCBU jP0ybfcbw7wzzdvsErExFW EeQEg2DRc7AFDwqZtuOaNv OVJ2LcS0MNW5aUEhwX8lrB foqnffvA0i Oyc+R25iaO7eZLH3YKC9tw ysCXPduvXxWO54CF55Y3Xd PjwvdGFibGU+PGRpdiBzdH msSL4oBjGf c2obo8ErNUujO8BbOLKkBF hrKyq4EIBpTGU3nBC5jU4v RLRmLNykc8J4bRC1M1Idnf Jweg2vr0zj SVXuLQsiB33anRCht3P1DA SmtDL3AQLtcQwdIbGxhQ12 Oyc+EIFukTrfn2PgCqgiz7 lps9ranRy2 NqWhZOMjxzLcjIkaBEL0z3 EtVw81V28wTAedDYZzLRRe SGPpCFLvlGwvsx0wlJ2cSz 8+PGNvbCB3 cDS1xW1pDYNsEcA8LFelZ0 87MqOepBLxLiont6nfy7rn kMs8MtEwWYZgzpGbqUdeKI Y7v1KqPs64 L79lBIspUFRiUKYdFLObXS XdcTiqfz7mcL6nMu2+PC9j h9dfne13aK49uKN+PHRkIH C1vQwkOAbu TBTxnE1dPUehJqN2STQkCj IzhG08iSVmHYkrTz8riUlx eQhjMF7zUMKumrjpz977Qq Vlh9yqGBDx aRKnDYiiWOW9H60of1X2HX GbRCZiWYI0nEC7xK9ylMis bjogbGVmdDsgdmVydGljYW zoFFirG284 IHRvcDsnPlBhdGllbnQgTm FlZQd5B1FgDhz3UNHmtFeb VT6zsAHqLQdpCh3ahLiwdX cbEC7vXFAu wjyep209QcYuz0ubOUGfuW OyRHitWHY2N48yx5H1HHVl VRAoOLL3kOV5dQ9tjVayzl ogbGVmdDsg joEkjKqkPEijDFpkZ505FX RvcDsnPkJpcnRoIERhdGU6 UV62NE38fBFyj8V5cLD0D6 BhZGRpbmct kpydrDA7WGEcNFJntO90Lz 7zkNbrRs8kMNQjXGG9YCWh zKMbL0KmpJ8dEkQoNBWuQN XfD8XjbTGr YFtsK330ODspKoY0RNKuci DcZ8ZyRHVwvHngFtN8i5N6 Mz1VM4L6WF18MJ42dLSkz8 G1zLY8M7Hl TJXpkjopkivvwTW4COUmWE OurM26Ts0jqDxfLy6zHBBp JOQ7BOHhzZQlJ0RaqA5dJm AjMDAwMDAw K9InzIEbHScpF705FDgfWv N1IXWflnGyH2KbOXRdhCbe IlX1u9R8Wo2RCXb0UA04KZ 30cDDhm5C4 gEV2H9YvUAWqpatrkxnaoF T7HBYmJQUqlI99Dz6gmLrs Wd3bAFSiTRG4DGLpnZAqV1 WktS7vDqXp WCBbKXHbK6TbrBNgSIokC2 64OSuiBfB3DCAoiaOvS9Mu GPEeuScjYcB8d4S8Tj9LHZ GuBK09VGS4 vDV0YU87DZ02J2ObBahgmH FibGU+PHRhYmxlIHdpZHRo NPyvDZHtEtSvqTdvZW6uEb 9yZGVyLWNv aPmijYCqCnWog1smIOHwJG rcZB1lfEqkQ9GasYK4LPQu w3x8Wa43O86hO3DofIC+PG UtfPC2gDZ1 vY1bKuMnBcU6BWqzD387Eg LpbNSkVlqgk2ags0jfkSx0 PmN4TMOfutBgmHxzYOB0e9 WiKl20Q38y IHdpZHRoPSIxNSUiIHZhbG bity5rnD4sEm7+PGNvbCB3 aXM4gA2dWpPlEdD3KRblW4 49InRvcCIv Czwud6qen7fkrAd3WdUtWG IndnJplBywNZG0v6GiSp16 U1NmtLwrr1JjYru6op47tM Kqz9R1ySX2 K9LeTWAvpvxlnSWxkMonSB 3dYEMsszylRDKuhH5tSCHo L4p4MnOsVuI1SXmhN7Undj V4POBjgBRq ORvsLTV3V98ck9B7GURwMC ZbPYP9zCM8sF5hwDbqalnd bGVmdDsgdmVydGljYWwtYW kiF744QJNv eVemYRZlmH1yJHXnkNJgwI tpHA2qBEIsynjgZrgJEM9D TiwgRUxJWkFCRVRIIEFOTj wvdGQ+PHRk QRL3mXubKBwpRXSdjB1aJI BbS4q1NwTyItK0VLpvH3Uv QRKxnidwMa50tF2gFeQxXr A6KGqvI5Qi naE2ARAmlWKjTAsfYVQ6X5 5jo3K9VWZwYCKkXYK5xXC7 pF8tgQuasgqawWLwhYadyd VydGljYWwt TTnrI657OVJlaSnnIeC3In ApMmT2NqC7N0VjPxx2JRWk vQdjCQ5fcJQjKWajNi5jaW wgcQiePD1o LHXlisbdDQGrkR8eUNHpdL NedLwmZY1tIBTmhbfhq146 NqUcEDS3QRClfOUqS8NbgP 9yOiAjMDAw BFDbW4LthIAsVWwwQ709HM qlUeM6ZCUmjnOnT4SkFGVl cLuoEzJ4m0D6Wz14EABTLY FyczwvdGQ+ TYMgGRS7tLydDErmZHVmfN 6mFYOfH4e9WhKjFyD1RWqv B3ZdGSQprdldRb82dW1qZt SfSnK1NImd X8RqkzK3NWPztZObBJhcPS Q0G48wo2G3OKQnXOWfOGJ0 eOL6aP2rlIrusdmpjEAywG sgdmVydGlj EGyoTFchS147EFAnbKgnTl ZFTUFMRTwvdGQ+PHRkIHN0 mYymYHdtIIHuoQ3jYHDuF6 v3QxIaMkQ1 ZScrV3GfOYBmzxfwQk50rT 0sXpDgRxI6DUvnH6KfbsE6 CILlhKPwASrlRPM7N51gz5 W8TILfXGDo SJS1mIF0dY2iwTnvobqycB VmdDsgdmVydGljYWwtYWxp G461VWHhyYrmLq9ZZA07TZ 51Y7RfFuby dGFibGU+PHRhYmxlIHdpZH VqIZapRIMbXzSgvQlgBN1o Co8vQARoAIHpzRcrbWGaFs Ybo9ngQKAf DUirZQ0ogAnpU7KczVC0GP Ape4d1Xz38Y18gC0QtpSI+ SYIwtVF2yWQ0zI2oBiSqZz L4YFxiX549 AyUrzIMkWudos9qme2sjkT s7DeGmYCHzkdEduMjaBGP8 i8FgSv22C53tIHmwKSEzYT IyMCUiIHZh uYdiym5lvA3jWo5+PGNvbC M5yCE4xT8rWzXdPeN8DFix K961QqGrmOMyDfsmG90eP3 JvdXA+PHRy Zty9PQIfaCzcTY3euDOwWW yfPc7yYOX6IqWdOeKpZCrv J7McDDMtvjfwddmiwQL6QZ DyQERcgF01 Yw3czZbmQm2hISOdIWO1TX FvhCJyS3HopF1dZdLtHRMz JLBzL1OjbJZjISvuJ912GS beJpN8HCHp hdKcY1XnGYBauIemOtL5f8 S1Ut6BoVzrkOWtYE2zXgCq EVm5A3MhMuy9FMOwaUifIG 0ncGFkZGlu Pe9uhKikpOufHW3qQVNfrx hws157VcCna7znJCXbtIJh DDtuHJI6F88uu2O3HVGgWP ZaQRI6bQG3 nF8rwJmrmxjmsCSgtMrepx NyiBdbFCueHSmbG400MXOu kKaoGwTKIfd4M8GdFhk3PE BxrReoPW5m gAOoLTypCb6vkEtamRvrER 8sQHQffvvsa817DkUwm4pg KUDrtICgQPshEZP7Q88ji4 F4CFInDFTf QDS7lFS0eC0mrEptoyospM VmdDsgdmVydGljYWwtYWxp J678DAEdxLczYa8EJeh8L3 MjOrt4SGRb lRmmJB5ilUKoHLxuOm2avR ckzUceEY5vZBYkvvkph931 VrTtw3dnKDVcnENgMWbxQF X7P00wk1C3 CUEfSZGnYJI4uTD6rE6paU lnbjogbGVmdDsgdmVydGlj EGugBFaiP711JXHshDeuUe BheWVyOjwv dGQ+CT40to77B2LmMyovHb [id number] [id number] (more content not included)... [facility] Consent Formson 01-08-2021 Consent Forms [id number] [facility] Progress Note - Nurseon Progress Note - Nurse PAT review for 01-21-2021 surgery reviewed per anesthesiologist, Dr. Gutierrez- no additional orders received. [Electronically Signed on: 01/07/2021 14:24 EST] Elvira Navarro RN [Verified on: 01/07/2021 14:24 EST] Elvira Navarro RN [facility] .Auto Diff 1on 01-04-2021 Auto [place] % 8 % Normal -12 [facility] Comment on above: Performed By: #### 1 [id number], [id number], [id number] ####[facility] (DEFAULT)[address] [place] [address] Baso Abs# 0.1 x10 Normal 0.0-0.2 [facility] Comment on above: Performed By: #### 1 [id number], [id number], [id number] ####[facility] (DEFAULT)[address] [place] [address] Basophils/100 WBC (Bld) 1.2 % Normal 0.2-2.0 [facility] Comment on above: Performed By: #### 1 [id number], [id number], [id number] ####[facility] (DEFAULT)[address] [place] [address] Eos Abs# 0.3 x10 Normal 0.0-0.4 [facility] Comment on above: Performed By: #### 1 [id number], [id number], [id number] ####[facility] (DEFAULT)[address] [place] [address] Eosinophils/100 WBC (Bld) 3.6 % Normal 0.9-4.0 [facility] Comment on above: Performed By: #### 1 [id number], [id number], [id number] ####[facility] (DEFAULT)[address] [place] [address] 095[address] Lymph Abs# 2.6 x10 Normal 1.3-2.9 [facility] Comment on above: Performed By: #### 1 [id number], [id number], [id number] ####[facility] (DEFAULT)[address] [place] [address] Lymphocytes/100 WBC (Bld) 34 % Normal 14-48 [facility] Comment on above: Performed By: #### 1 [id number], [id number], [id number] ####[facility] (DEFAULT)[address] [place] [address] [place]house Abs# 0.6 x10 Normal 0.0-0.8 [facility] Comment on above: Performed By: #### 1 [id number], [id number], [id number] ####[facility] (DEFAULT)[address] [place] [address] Neut Abs# 3.9 x10 Normal 1.5-9.2 [facility] Comment on above: Performed By: #### 1 [id number], [id number], [id number] ####[facility] (DEFAULT)[address] [place] [address] Neutrophils/100 WBC (Bld) 53 % Normal 44-88 [facility] Comment on above: Performed By: #### 1 [id number], [id number], [id number] ####[facility] (DEFAULT)[address] [place] [address] BMP Standardon 01-04-2021 eGFR Non AA >60 Invalid Interpretation Code [facility] Comment on above: Performed By: #### 1 [id number], [id number], [id number] ####[facility] (DEFAULT)[address] [place] [address] eGFR AA >60 Invalid Interpretation Code [facility] Comment on above: Result Comment: [employer] Worker medina Kidney disease could be indicated at eGFRs of less than 60 ml/min/1.73m2. Kidney Failure is indicated at less than 15 ml/min/1.73m2 Performed By: #### 1 [id number], [id number], [id number] ####[facility] (DEFAULT)[address] [place] [address] 28484 Anion gap [Moles/Vol] 12.0 mmol/L Normal 5.0-19.0 [facility] Comment on above: Performed By: #### 1 [id number], [id number], [id number] ####[facility] (DEFAULT)[address] [place] [address] 99294 Calcium [Mass/Vol] 9.5 mg/dL Normal 8.9-10.3 [facility] Comment on above: Performed By: #### 1 [id number], [id number], [id number] ####[facility] (DEFAULT)[address] [place] [address] 31276 Chloride [Moles/Vol] 102 mmol/L Normal 101-111 [facility] Comment on above: Performed By: #### 1 [id number], [id number], [id number] ####[facility] (DEFAULT)[address] [place] [address] 76723 CO2 [Moles/Vol] 27 mmol/L Normal 21-32 [facility] Comment on above: Performed By: #### 1 [id number], [id number], [id number] ####[facility] (DEFAULT)[address] [place] [address] 95323 Creatinine [Mass/Vol] 0.77 mg/dL Normal 0.60-1.30 [facility] Comment on above: Performed By: #### 1 [id number], [id number], [id number] ####[facility] (DEFAULT)[address] [place] [address] 44606 Glucose [Mass/Vol] 88.0 mg/dL Normal 74.0-118.0 [facility] Comment on above: Performed By: #### 1 [id number], [id number], [id number] ####[facility] (DEFAULT)[address] [place] [address] Osmolality 275 mOsm/L Invalid Interpretation Code [facility] Comment on above: Performed By: #### 1 [id number], [id number], [id number] ####[facility] (DEFAULT)[address] [place] [address] 97231 Potassium [Moles/Vol] 3.4 mmol/L Low 3.6-5.1 [facility] Comment on above: Performed By: #### 1 [id number], [id number], [id number] ####[facility] (DEFAULT)[address] [place] [address] Sodium [Moles/Vol] 138.0 mmol/L Normal 136.0-144.0 [facility] Comment on above: Performed By: #### 1 [id number], [id number], [id number] ####[facility] (DEFAULT)[address] [place] [address] Urea nitrogen [Mass/Vol] 13 mg/dL Normal 8-26 [facility] Comment on above: Performed By: #### 1 [id number], [id number], [id number] ####[facility] (DEFAULT)[address] [place] [address] Urea nitrogen/Creatinine [Mass ratio] 17.0 mg/mg High 4.6-16.2 [facility] Comment on above: Performed By: #### 1 [id number], [id number], [id number] ####[facility] (DEFAULT)[address] [place] [address] 49103 CBC w/ Auto Diffon Erythrocyte distribution width (RBC) [Ratio] 13.7 % Normal 11.5-15.0 [facility] Comment on above: Performed By: #### 1 [id number], [id number], [id number] ####[facility] (DEFAULT)[address] [place] [address] Hematocrit (Bld) [Volume fraction] 37.5 % Normal 33.7-40.4 [facility] Comment on above: Performed By: #### 1 [id number], [id number], [id number] ####[facility] (DEFAULT)[address] [place] [address] 21003 Hemoglobin (Bld) [Mass/Vol] 11.7 g/dL Normal 11.3-15.9 [facility] Comment on above: Performed By: #### 1 [id number], [id number], [id number] ####[facility] (DEFAULT)[address] [place] [address] 85358 Instr WBC 7.4 x10 Invalid Interpretation Code [facility] Comment on above: Performed By: #### 1 [id number], [id number], [id number] ####[facility] (DEFAULT)[address] [place] [address] Man Diff? Auto Normal [facility] Comment on above: Performed By: #### 1 [id number], [id number], [id number] ####[facility] (DEFAULT)[address] [place] [address] 15432 MCH (RBC) [Entitic mass] 26 pg Normal 24-34 [facility] Comment on above: Performed By: #### 1 [id number], [id number], [id number] ####[facility] (DEFAULT)[address] [place] [address] 98473 MCHC (RBC) [Mass/Vol] 31 g/dL Normal 26-37 [facility] Comment on above: Performed By: #### 1 [id number], [id number], [id number] ####[facility] (DEFAULT)[address] [place] [address] 18161 MCV (RBC) [Entitic vol] 84 fL Normal 81-100 [facility] Comment on above: Performed By: #### 1 [id number], [id number], [id number] ####[facility] (DEFAULT)[address] [place] [address] 55193 Platelet 393 x10 Normal 138-427 [facility] Comment on above: Performed By: #### 1 [id number], [id number], [id number] ####[facility] (DEFAULT)[address] [place] [address] 14129 Platelet mean volume (Bld) [Entitic vol] 9.7 fL Normal 6.3-10.2 [facility] Comment on above: Performed By: #### 1 [id number], [id number], [id number] ####[facility] (DEFAULT)[address] [place] [address] RBC 4.48 x10 Normal 3.70-5.30 [facility] Comment on above: Performed By: #### 1 [id number], [id number], [id number] ####[facility] (DEFAULT)[address] [place] [address] WBC 7.4 x10 Normal 3.5-10.5 [facility] Comment on above: Performed By: #### 1 [id number], [id number], [id number] ####[facility] (DEFAULT)[address] [place] [address] CULTURE, URINE, ROUTINEon CULTURE, URINE, ROUTINE SEE NOTE Abnormal [facility] Comment on above: Result Comment: CULTURE, URINE, ROUTINE Micro Number: [id number] Test Status: Final Specimen Source: Not given [...] loracarbef. Performed By: #### 3 95 #### [facility] [address] [facility], [address] [place] [address] Commercial Loan Closer: Heraclio Miller MD Vital Signs Date Time Vital Sign Value Performing Clinician Facility 10-26-2024 13:53-0400 Body height 180.3 cm Marisela Cuevas WEB DEVELOPMENT INSTRUCTOR-DIAL SCREW ASSEMBLER Work Phone: [facility] 10-26-2024 13:53-0400 Body temperature 97.5 [degF] Marisela Cuevas WEB DEVELOPMENT INSTRUCTOR-DIAL SCREW ASSEMBLER Work Phone: [facility] 10-26-2024 13:53-0400 Diastolic blood pressure 81 mm[Hg] Marisela Cuevas WEB DEVELOPMENT INSTRUCTOR-DIAL SCREW ASSEMBLER Work Phone: [facility] 10-26-2024 13:53-0400 Heart rate 80 /min Marisela Cuevas WEB DEVELOPMENT INSTRUCTOR-DIAL SCREW ASSEMBLER Work Phone: [facility] 10-26-2024 13:53-0400 Respiratory rate 16 /min Marisela Cuevas WEB DEVELOPMENT INSTRUCTOR-DIAL SCREW ASSEMBLER Work Phone: [facility] 10-26-2024 13:53-0400 Systolic blood pressure 134 mm[Hg] Marisela Cuevas WEB DEVELOPMENT INSTRUCTOR-DIAL SCREW ASSEMBLER Work Phone: [facility] 10-05-2024 13:28-0400 Body temperature 97.39 [degF] Marisela Cuevas WEB DEVELOPMENT INSTRUCTOR-DIAL SCREW ASSEMBLER Work Phone: [facility] 10-05-2024 13:28-0400 Diastolic blood pressure 86 mm[Hg] Marisela Cuevas WEB DEVELOPMENT INSTRUCTOR-DIAL SCREW ASSEMBLER Work Phone: [facility] 10-05-2024 13:28-0400 Heart rate 77 /min Marisela Cuevas WEB DEVELOPMENT INSTRUCTOR-DIAL SCREW ASSEMBLER Work Phone: [facility] 10-05-2024 13:28-0400 Respiratory rate 15 /min Marisela Cuevas WEB DEVELOPMENT INSTRUCTOR-DIAL SCREW ASSEMBLER Work Phone: [facility] 10-05-2024 13:28-0400 Systolic blood pressure 116 mm[Hg] Marisela Cuevas WEB DEVELOPMENT INSTRUCTOR-DIAL SCREW ASSEMBLER Work Phone: [facility] 09-16-2024 08:57-0400 Body temperature 97.39 [degF] Geno Bittikofer WEB DEVELOPMENT INSTRUCTOR.DIAL SCREW ASSEMBLER Work Phone: [facility] 09-16-2024 08:57-0400 Diastolic blood pressure 90 mm[Hg] Geno Bittikofer WEB DEVELOPMENT INSTRUCTOR.DIAL SCREW ASSEMBLER Work Phone: [facility] 09-16-2024 08:57-0400 Heart rate 84 /min Geno Bittikofer WEB DEVELOPMENT INSTRUCTOR.DIAL SCREW ASSEMBLER Work Phone: [facility] 09-16-2024 08:57-0400 SaO2% (BldA) [Mass fraction] 100 % Geno Bittikofer WEB DEVELOPMENT INSTRUCTOR.DIAL SCREW ASSEMBLER Work Phone: [facility] 09-16-2024 08:57-0400 Systolic blood pressure 136 mm[Hg] Geno Bittikofer WEB DEVELOPMENT INSTRUCTOR.DIAL SCREW ASSEMBLER Work Phone: [facility] 09-16-2024 07:23-0400 Body mass index (BMI) [Ratio] 28.88 kg/m2 Alessandra Syed WEB DEVELOPMENT INSTRUCTOR.DIAL SCREW ASSEMBLER Work Phone: [facility] 09-16-2024 07:23-0400 Body temperature 98.1 [degF] Alessandra Syed WEB DEVELOPMENT INSTRUCTOR.DIAL SCREW ASSEMBLER Work Phone: [facility] 09-16-2024 07:23-0400 Body weight 91.3 kg Alessandra Syed APRN.ESPERANZA Work Phone: [facility] 09-16-2024 07:23-0400 Diastolic blood pressure 92 mm[Hg] Alessandra Syed WEB DEVELOPMENT INSTRUCTOR.DIAL SCREW ASSEMBLER Work Phone: [facility] 09-16-2024 07:23-0400 Heart rate 78 /min Alessandra Dennisopf WEB DEVELOPMENT INSTRUCTOR.DIAL SCREW ASSEMBLER Work Phone: [facility] 09-16-2024 07:23-0400 Respiratory rate 18 /min Alessandra Dennisopf WEB DEVELOPMENT INSTRUCTOR.DIAL SCREW ASSEMBLER Work Phone: [facility] 09-16-2024 07:23-0400 SaO2% (BldA) [Mass fraction] 100 % Alessandra Dennisopf WEB DEVELOPMENT INSTRUCTOR.DIAL SCREW ASSEMBLER Work Phone: [facility] 09-16-2024 07:23-0400 Systolic blood pressure 149 mm[Hg] Alessandra Dennisopf WEB DEVELOPMENT INSTRUCTOR.DIAL SCREW ASSEMBLER Work Phone: [facility] 09-08-2024 09:52-0400 Body temperature 98.6 [degF] Shereen Smallwood PA-C Work Phone: [facility] 09-08-2024 09:52-0400 Diastolic blood pressure 85 mm[Hg] Shereen Smallwood PA-C Work Phone: [facility] 09-08-2024 09:52-0400 Heart rate 79 /min Shereen Smallwood PA-C Work Phone: [facility] 09-08-2024 09:52-0400 Respiratory rate 16 /min Shereen Smallwood PA-C Work Phone: [facility] 09-08-2024 09:52-0400 Systolic blood pressure 125 mm[Hg] Shereen Smallwood PA-C Work Phone: [facility] 09-07-2024 09:26-0400 Diastolic blood pressure 82 mm[Hg] Placement [employer] Work Phone: [facility] 09-07-2024 09:26-0400 Heart rate 63 /min [employer] Work Phone: [facility] 09-07-2024 09:26-0400 SaO2% (BldA) [Mass fraction] 100 % [employer] Work Phone: [facility] 09-07-2024 09:26-0400 Systolic blood pressure 136 mm[Hg] [employer] Work Phone: [facility] 08-18-2024 15:41-0400 Body temperature 97.81 [degF] Shereen Smallwood PA-C Work Phone: [facility] [employer] [facility] 08-18-2024 15:41-0400 Diastolic blood pressure 82 mm[Hg] Shereen Janeaux [facility]-C [facility] 08-18-2024 15:41-0400 Heart rate 93 /min Shereen [facility]aux PA-C [facility] 08-18-2024 15:41-0400 Respiratory rate 16 /min Shereen Castilloreaux PA-C [facility] Phone[facility] 08-18-2024 15:41-0400 Systolic blood pressure 118 mm[Hg] Shereen Castilloreaux PA-C [facility] Phone[facility] 08-10-2024 16:37-0400 Diastolic blood pressure 60 mm[Hg] Dhruv White DO [facility] 08-10-2024 16:37-0400 Systolic blood pressure 100 mm[Hg] Dhruv White DO [facility] 08-10-2024 15:51-0400 Body height 177.8 cm Dhruv White DO [facility] 08-10-2024 15:51-0400 Body mass index (BMI) [Ratio] 28.04 kg/m2 Dhruv White DO [facility] 08-10-2024 15:51-0400 Body temperature 98.01 [degF] Dhruv White DO Work Phone: [facility] 08-10-2024 15:51-0400 Body weight 88.63 kg Dhruv White DO Work Phone: [facility] [employer] [facility] [facility] 08-10-2024 15:51-0400 Heart rate 98 /min Dhruv White DO Work Phone: [facility] [employer] 08-10-2024 15:51-0400 Respiratory rate 20 /min Dhruv White DO Work Phone: [facility] 08-10-2024 15:51-0400 SaO2% (BldA) [Mass fraction] 99 % Dhruv White DO Work Phone: [facility] 08-08-2024 09:30-0400 Body temperature 97.11 [degF] Shereen Smallwood PA-C Work Phone: [facility] 08-08-2024 09:30-0400 Diastolic blood pressure 86 mm[Hg] Shereen Smallwood PA-C Work Phone: [facility] 08-08-2024 09:30-0400 Heart rate 78 /min Shereen Smallwood PA-C Work Phone: [facility] 08-08-2024 09:30-0400 Respiratory rate 15 /min Shereen Smallwood PA-C Work Phone: [facility] 08-08-2024 09:30-0400 Systolic blood pressure 126 mm[Hg] Shereen Smallwood PA-C [facility] Phone[facility] 08-03-2024 09:31-0400 Body height 177.8 cm Shereen Smallwood PA-C Work Phone: [facility] 08-03-2024 09:31-0400 Body mass index (BMI) [Ratio] 27.58 kg/m2 Shereen Smallwood PA-C [facility] 08-03-2024 09:31-0400 Body temperature 97.5 [degF] Shereen Castilloreaux PA-C [facility] 08-03-2024 09:31-0400 Body weight 87.2 kg Shereen Selin PA-C [facility] Phone[facility] 08-03-2024 09:31-0400 Diastolic blood pressure 88 mm[Hg] Shereen Castilloreaux PA-C [facility] Phone[facility] 08-03-2024 09:31-0400 Heart rate 76 /min Shereen Castilloreaux PA-C Work Phone[facility] 08-03-2024 09:31-0400 Respiratory rate 16 /min Shereen Castilloreaux PA-C Work Phone[facility] 08-03-2024 09:31-0400 Systolic blood pressure 138 mm[Hg] Shereen Castilloreaux PA-C Work Phone: [facility] 07-19-2024 07:57-0400 Body temperature 96.8 [degF] Krystin Barillas MD Work Phone: [facility] 07-19-2024 07:57-0400 Body weight 88.45 kg Krystin Barillas MD Work Phone: [facility] 07-19-2024 07:57-0400 Diastolic blood pressure 84 mm[Hg] Krystin Barillas MD Work Phone: [facility] 07-19-2024 07:57-0400 Heart rate 72 /min Krystin Barillas MD Work Phone: [facility] 07-19-2024 07:57-0400 Respiratory rate 18 /min Krystin Barillas MD Work Phone: [facility] 07-19-2024 07:57-0400 SaO2% (BldA) [Mass fraction] 100 % Krystin Barillas MD Work Phone: [facility] 07-19-2024 07:57-0400 Systolic blood pressure 138 mm[Hg] Krystin Barillas MD Work Phone: [facility] 07-15-2024 13:21-0400 Body height 180.3 cm [facility] 07-15-2024 13:21-0400 Body mass index (BMI) [Ratio] 26.92 kg/m2 [facility] 07-15-2024 13:21-0400 Body weight 87.54 kg [facility] 07-14-2024 08:55-0400 Body height 180.3 cm Richie Jacques WEB DEVELOPMENT INSTRUCTOR-DIAL SCREW ASSEMBLER Work Phone: [facility] 07-14-2024 08:55-0400 Body mass index (BMI) [Ratio] 27 kg/m2 Richie Jacques WEB DEVELOPMENT INSTRUCTOR-DIAL SCREW ASSEMBLER Work Phone: [facility] 07-14-2024 08:55-0400 Body temperature 97.9 [degF] Richie Jacques WEB DEVELOPMENT INSTRUCTOR-DIAL SCREW ASSEMBLER Work Phone: [facility] 07-14-2024 08:55-0400 Body weight 87.82 kg Richie Jacques WEB DEVELOPMENT INSTRUCTOR-DIAL SCREW ASSEMBLER Work Phone: [facility] 07-14-2024 08:55-0400 Heart rate 66 /min Richie Jacques WEB DEVELOPMENT INSTRUCTOR-DIAL SCREW ASSEMBLER Work Phone: [facility] 07-14-2024 08:55-0400 Respiratory rate 18 /min Richie Jacques WEB DEVELOPMENT INSTRUCTOR-DIAL SCREW ASSEMBLER Work Phone: [facility] 07-14-2024 08:55-0400 SaO2% (BldA) [Mass fraction] 99 % Richie Jacques WEB DEVELOPMENT INSTRUCTOR-DIAL SCREW ASSEMBLER Work Phone: [facility] 07-06-2024 08:49-0400 Body height 180.3 cm Marisela Giovanni WEB DEVELOPMENT INSTRUCTOR-DIAL SCREW ASSEMBLER Work Phone: [facility] 07-06-2024 08:49-0400 Body mass index (BMI) [Ratio] 26.36 kg/m2 Marisela Cuevas WEB DEVELOPMENT INSTRUCTOR-DIAL SCREW ASSEMBLER Work Phone: [facility] 07-06-2024 08:49-0400 Body weight 85.73 kg Marisela Cuevas WEB DEVELOPMENT INSTRUCTOR-DIAL SCREW ASSEMBLER Work Phone: [facility] 07-06-2024 08:49-0400 Diastolic blood pressure 90 mm[Hg] Marisela Cuevas WEB DEVELOPMENT INSTRUCTOR-DIAL SCREW ASSEMBLER Work Phone: [facility] 07-06-2024 08:49-0400 Heart rate 71 /min Marisela Cuevas WEB DEVELOPMENT INSTRUCTOR-DIAL SCREW ASSEMBLER Work Phone: [facility] 07-06-2024 08:49-0400 Systolic blood pressure 144 mm[Hg] Marisela Cuevas WEB DEVELOPMENT INSTRUCTOR-DIAL SCREW ASSEMBLER Work Phone: [facility] 06-29-2024 14:29-0400 Body height 180.3 cm Marisela Cuevas WEB DEVELOPMENT INSTRUCTOR-DIAL SCREW ASSEMBLER Work Phone: [facility] 06-29-2024 14:29-0400 Body mass index (BMI) [Ratio] 26.36 kg/m2 Marisela Cuevas WEB DEVELOPMENT INSTRUCTOR-DIAL SCREW ASSEMBLER Work Phone: [facility] 06-29-2024 14:29-0400 Body temperature 97.39 [degF] Marisela Cuevas WEB DEVELOPMENT INSTRUCTOR-DIAL SCREW ASSEMBLER Work Phone: [facility] 06-29-2024 14:29-0400 Body weight 85.73 kg Marisela Cuevas WEB DEVELOPMENT INSTRUCTOR-DIAL SCREW ASSEMBLER Work Phone: [facility] 06-29-2024 14:29-0400 Diastolic blood pressure 113 mm[Hg] Marisela Cuevas WEB DEVELOPMENT INSTRUCTOR-DIAL SCREW ASSEMBLER Work Phone: [facility] Comment on above: patient states its been running high 06-29-2024 14:29-0400 Heart rate 84 /min Marisela Cuevas WEB DEVELOPMENT INSTRUCTOR-DIAL SCREW ASSEMBLER Work Phone: [facility] 06-29-2024 14:29-0400 Respiratory rate 14 /min Marisela Cuevas WEB DEVELOPMENT INSTRUCTOR-DIAL SCREW ASSEMBLER Work Phone: [facility] 06-29-2024 14:29-0400 Systolic blood pressure 168 mm[Hg] Marisela Cuevas WEB DEVELOPMENT INSTRUCTOR-DIAL SCREW ASSEMBLER Work Phone: [facility] Comment on above: patient states its been running high 06-22-2024 15:10-0400 Diastolic blood pressure 95 mm[Hg] Marisela Cuevas WEB DEVELOPMENT INSTRUCTOR-DIAL SCREW ASSEMBLER Work Phone: [facility] 06-22-2024 15:10-0400 Systolic blood pressure 141 mm[Hg] Marisela Cuevas WEB DEVELOPMENT INSTRUCTOR-DIAL SCREW ASSEMBLER Work Phone: [facility] 06-22-2024 15:09-0400 Body height 180.3 cm Marisela Cuevas WEB DEVELOPMENT INSTRUCTOR-DIAL SCREW ASSEMBLER Work Phone: [facility] 06-22-2024 15:09-0400 Body mass index (BMI) [Ratio] 26.36 kg/m2 Marisela Cuevas WEB DEVELOPMENT INSTRUCTOR-DIAL SCREW ASSEMBLER Work Phone: [facility] 06-22-2024 15:09-0400 Body weight 85.73 kg Marisela Cuevas WEB DEVELOPMENT INSTRUCTOR-DIAL SCREW ASSEMBLER Work Phone: [facility] 06-22-2024 15:09-0400 Heart rate 81 /min Marisela Cuevas WEB DEVELOPMENT INSTRUCTOR-DIAL SCREW ASSEMBLER Work Phone: [facility] 06-22-2024 15:09-0400 Respiratory rate 16 /min Marisela Cuevas WEB DEVELOPMENT INSTRUCTOR-DIAL SCREW ASSEMBLER Work Phone: [facility] 06-08-2024 11:52-0400 Body temperature 97.7 [degF] Trish Bosinger PA-C Work Phone: [facility] 06-08-2024 11:52-0400 Diastolic blood pressure 110 mm[Hg] Trsihshirin Adrianinger PA-C Work Phone: [facility] 06-08-2024 11:52-0400 Heart rate 69 /min Trish Bosinger PA-C Work Phone: [facility] 06-08-2024 11:52-0400 Respiratory rate 16 /min Trish Bosinger PA-C Work Phone: [facility] 06-08-2024 11:52-0400 Systolic blood pressure 156 mm[Hg] Trish Bosinger PA-C Work Phone: [facility] 06-03-2024 10:37-0400 Body height 180.34 cm Randy Furlong DO Work Phone: [facility] 06-03-2024 10:37-0400 Body weight 83.91 kg Randy Furlong DO Work Phone: [facility] 06-01-2024 11:21-0400 Body mass index (BMI) [Ratio] 26.28 kg/m2 Evan Jay DO Work Phone: [facility] 06-01-2024 11:21-0400 Body weight 85.46 kg Evan Jay DO Work Phone: [facility] 06-01-2024 11:21-0400 Diastolic blood pressure 68 mm[Hg] Evan Jay DO Work Phone: [facility] 06-01-2024 11:21-0400 Systolic blood pressure 110 mm[Hg] Evan Jay DO Work Phone: [facility] 06-01-2024 09:36-0400 Body temperature 97.7 [degF] Marisela Cuevas WEB DEVELOPMENT INSTRUCTOR-DIAL SCREW ASSEMBLER Work Phone: [facility] 06-01-2024 09:36-0400 Diastolic blood pressure 95 mm[Hg] Marisela Cuevas WEB DEVELOPMENT INSTRUCTOR-DIAL SCREW ASSEMBLER Work Phone: [facility] 06-01-2024 09:36-0400 Heart rate 81 /min Marisela Cuevas WEB DEVELOPMENT INSTRUCTOR-DIAL SCREW ASSEMBLER Work Phone: [facility] 06-01-2024 09:36-0400 Respiratory rate 14 /min Marisela Cuevas WEB DEVELOPMENT INSTRUCTOR-DIAL SCREW ASSEMBLER Work Phone: [facility] 06-01-2024 09:36-0400 Systolic blood pressure 149 mm[Hg] Marisela Cuevas WEB DEVELOPMENT INSTRUCTOR-DIAL SCREW ASSEMBLER Work Phone: [facility] 05-22-2024 22:22-0400 SaO2% (BldA) [Mass fraction] 96 % [facility] 05-22-2024 22:22-0400 Heart rate 97 /min [facility] 05-22-2024 22:12-0400 SaO2% (BldA) [Mass fraction] 96 % [facility] 05-22-2024 22:12-0400 Heart rate 102 /min [facility] 05-22-2024 22:12-0400 Body temperature 99.68 [degF] [facility] 05-22-2024 22:12-0400 Diastolic blood pressure 94 mm[Hg] [facility] 05-22-2024 22:12-0400 Mean blood pressure 109 mm[Hg] [facility] 05-22-2024 22:12-0400 Respiratory rate 18 /min [facility] 05-22-2024 22:12-0400 Systolic blood pressure 138 mm[Hg] [facility] 05-22-2024 21:35-0400 SaO2% (BldA) [Mass fraction] 95 % [facility] 05-22-2024 21:35-0400 Heart rate 108 /min [facility] 05-22-2024 21:35-0400 Body temperature 100.76 [degF] [facility] 05-22-2024 21:35-0400 Diastolic blood pressure 85 mm[Hg] [facility] 05-22-2024 21:35-0400 Mean blood pressure 103 mm[Hg] [facility] 05-22-2024 21:35-0400 Respiratory rate 18 /min [facility] 05-22-2024 21:35-0400 Systolic blood pressure 140 mm[Hg] [facility] 05-22-2024 21:00-0400 Mean blood pressure 106 mm[Hg] [facility] 05-22-2024 20:58-0400 Body temperature 101.84 [degF] [facility] 05-22-2024 19:00-0400 Heart rate 120 /min [facility] 05-18-2024 09:08-0400 Body height 180.3 cm Shereen Smallwood PA-C Work Phone: [facility] 05-18-2024 09:08-0400 Body mass index (BMI) [Ratio] 26.89 kg/m2 Shereen Smallwood PA-C Work Phone: [facility] 05-18-2024 09:08-0400 Body temperature 97.5 [degF] Shereen Smallwood PA-C Work Phone: [facility] 05-18-2024 09:08-0400 Body weight 87.45 kg Shereen Smallwood PA-C Work Phone: [facility] 05-18-2024 09:08-0400 Diastolic blood pressure 90 mm[Hg] Shereen Smallwood PA-C Work Phone: [facility] 05-18-2024 09:08-0400 Heart rate 84 /min Shereen Smallwood PA-C Work Phone: [place] [employer] [facility] 05-18-2024 09:08-0400 Systolic blood pressure 151 mm[Hg] Shereen Smallwood PA-C Work Phone: [facility] 05-12-2024 11:49-0400 Body height 180.3 cm [facility] 05-12-2024 11:49-0400 Body mass index (BMI) [Ratio] 26.78 kg/m2 [facility] 05-12-2024 11:49-0400 Body weight 87.09 kg [facility] 04-28-2024 16:02-0500 Body temperature 97.9 [degF] Jhon Gross MD Work Phone: [facility] 04-28-2024 16:02-0500 Diastolic blood pressure 85 mm[Hg] Jhon Gross MD Work Phone: [facility] 04-28-2024 16:02-0500 Heart rate 92 /min Jhon Gross MD Work Phone: [facility] 04-28-2024 16:02-0500 Systolic blood pressure 148 mm[Hg] Jhon Gross MD Work Phone: [facility] 04-26-2024 15:01-0500 Body height 178 cm Evan Jay DO Work Phone: [facility] 04-26-2024 15:01-0500 Body mass index (BMI) [Ratio] 28.5 kg/m2 Evan Jay DO Work Phone: [facility] 04-26-2024 15:01-0500 Body temperature 97.4 [degF] Evan Jay DO Work Phone: [facility] 04-26-2024 15:01-0500 Body weight 90.52 kg Evan Ajy DO Work Phone: [facility] 04-26-2024 15:01-0500 Diastolic blood pressure 69 mm[Hg] Evan Jay DO Work Phone: [facility] 04-26-2024 15:01-0500 Heart rate 86 /min Evan Jay DO Work Phone: [facility] 04-26-2024 15:01-0500 Respiratory rate 16 /min Evan Jay DO Work Phone: [facility] 04-26-2024 15:01-0500 SaO2% (BldA) [Mass fraction] 98 % Evan Jay DO Work Phone: [facility] 04-26-2024 15:01-0500 Systolic blood pressure 125 mm[Hg] Evan Jay DO Work Phone: [facility] 04-20-2024 15:11-0500 Body height 180.3 cm Mariselavladimir Cuevas WEB DEVELOPMENT INSTRUCTOR-DIAL SCREW ASSEMBLER Work Phone: [employer] 04-20-2024 15:11-0500 Body mass index (BMI) [Ratio] 27.71 kg/m2 Mariselavladimir GlasgowCuevas WEB DEVELOPMENT INSTRUCTOR-DIAL SCREW ASSEMBLER Work Phone: [employer] 04-20-2024 15:11-0500 Body temperature 97.59 [degF] Mariselavladimir Cuevas WEB DEVELOPMENT INSTRUCTOR-DIAL SCREW ASSEMBLER Work Phone: [employer] 04-20-2024 15:11-0500 Body weight 90.08 kg Marisela Cuevas WEB DEVELOPMENT INSTRUCTOR-DIAL SCREW ASSEMBLER Work Phone: [employer] 04-20-2024 15:11-0500 Diastolic blood pressure 85 mm[Hg] Marisela Cuevas WEB DEVELOPMENT INSTRUCTOR-DIAL SCREW ASSEMBLER Work Phone: [employer] 04-20-2024 15:11-0500 Heart rate 84 /min Marisela Cuevas WEB DEVELOPMENT INSTRUCTOR-DIAL SCREW ASSEMBLER Work Phone: [employer] 04-20-2024 15:11-0500 Respiratory rate 16 /min Marisela Cuevas WEB DEVELOPMENT INSTRUCTOR-DIAL SCREW ASSEMBLER Work Phone: [facility] [facility] [facility] 04-20-2024 15:11-0500 Systolic blood pressure 143 mm[Hg] Marisela Cuevas WEB DEVELOPMENT INSTRUCTOR-DIAL SCREW ASSEMBLER Work Phone: [place] [employer] [facility] 04-13-2024 13:40-0500 Body height 180.3 cm Marisela Cuevas WEB DEVELOPMENT INSTRUCTOR-DIAL SCREW ASSEMBLER Work Phone: [facility] 04-13-2024 13:40-0500 Body mass index (BMI) [Ratio] 27.71 kg/m2 Marisela Cuevas WEB DEVELOPMENT INSTRUCTOR-DIAL SCREW ASSEMBLER Work Phone: [place] [employer] [facility] 04-13-2024 13:40-0500 Body temperature 97.9 [degF] Marisela Cuevas WEB DEVELOPMENT INSTRUCTOR-DIAL SCREW ASSEMBLER Work Phone: [place] [employer] [facility] 04-13-2024 13:40-0500 Body weight 90.08 kg Marisela Cuevas WEB DEVELOPMENT INSTRUCTOR-DIAL SCREW ASSEMBLER Work Phone: [place] [employer] [facility] 04-13-2024 13:40-0500 Diastolic blood pressure 82 mm[Hg] Marisela Cuevas WEB DEVELOPMENT INSTRUCTOR-DIAL SCREW ASSEMBLER Work Phone: [place] [employer] [facility] 04-13-2024 13:40-0500 Respiratory rate 15 /min Marisela Cuevas WEB DEVELOPMENT INSTRUCTOR-DIAL SCREW ASSEMBLER Work Phone: [place] [employer] [facility] 04-13-2024 13:40-0500 Systolic blood pressure 134 mm[Hg] Marisela Cuevas WEB DEVELOPMENT INSTRUCTOR-DIAL SCREW ASSEMBLER Work Phone: [facility] [employer] [facility] 04-13-2024 13:12-0500 Diastolic blood pressure 82 mm[Hg] Raymond Sepulveda MD Work Phone: [facility] 04-13-2024 13:12-0500 Heart rate 78 /min Raymond Sepulveda MD Work Phone: [facility] [employer] [facility] 04-13-2024 13:12-0500 Respiratory rate 16 /min Raymond Sepulveda MD Work Phone: [facility] 04-13-2024 13:12-0500 SaO2% (BldA) [Mass fraction] 99 % Raymond Sepulveda MD Work Phone: [facility] [employer] [facility] [facility] 04-13-2024 13:12-0500 Systolic blood pressure 134 mm[Hg] Raymond Sepulveda MD Work Phone: [facility] 04-13-2024 13:08-0500 Body height 180.3 cm Raymond Sepulveda MD Work Phone: [facility] [employer] [facility] 04-13-2024 13:08-0500 Body mass index (BMI) [Ratio] 27.71 kg/m2 Raymond Sepulveda MD Work Phone: [facility] 04-13-2024 13:08-0500 Body weight 90.08 kg Raymond Sepulveda MD Work Phone: [facility] [employer] [facility] 03-30-2024 15:58-0500 Body height 180.3 cm Marisela Cuevas WEB DEVELOPMENT INSTRUCTOR-DIAL SCREW ASSEMBLER Work Phone: [facility] [facility] 03-30-2024 15:58-0500 Body mass index (BMI) [Ratio] 27.91 kg/m2 Marisela Cuevas WEB DEVELOPMENT INSTRUCTOR-DIAL SCREW ASSEMBLER Work Phone: [facility] [facility] 03-30-2024 15:58-0500 Body weight 90.72 kg Marisela Cuevas WEB DEVELOPMENT INSTRUCTOR-DIAL SCREW ASSEMBLER Work Phone: [facility] [employer] [facility] 03-30-2024 15:58-0500 Diastolic blood pressure 82 mm[Hg] Marisela Cuevas WEB DEVELOPMENT INSTRUCTOR-DIAL SCREW ASSEMBLER Work Phone: [facility] 03-30-2024 15:58-0500 Heart rate 82 /min Marisela Cuevas WEB DEVELOPMENT INSTRUCTOR-DIAL SCREW ASSEMBLER Work Phone: [facility] [facility] 03-30-2024 15:58-0500 Systolic blood pressure 123 mm[Hg] Marisela Cuevas WEB DEVELOPMENT INSTRUCTOR-DIAL SCREW ASSEMBLER Work Phone: [facility] 03-10-2024 11:42-0500 Body mass index (BMI) [Ratio] 27.91 kg/m2 Evan Jay DO Work Phone: [facility] 03-10-2024 11:42-0500 Body weight 90.77 kg Evan Jay DO Work Phone: [facility] 03-10-2024 11:42-0500 Diastolic blood pressure 82 mm[Hg] Evan Jay DO Work Phone: [facility] 03-10-2024 11:42-0500 Systolic blood pressure 120 mm[Hg] Evan Jay DO Work Phone: [facility] 03-10-2024 08:44-0500 Body height 180.3 cm Jhon Gross MD Work Phone: [facility] 03-10-2024 08:44-0500 Body mass index (BMI) [Ratio] 28.1 kg/m2 Jhon Gross MD Work Phone: [facility] 03-10-2024 08:44-0500 Body temperature 97.7 [degF] Jhon Gross MD Work Phone: [facility] 03-10-2024 08:44-0500 Body weight 91.4 kg Jhon Gross MD Work Phone: [facility] 03-10-2024 08:44-0500 Diastolic blood pressure 99 mm[Hg] Jhon Gross MD Work Phone: [facility] Comment on above: Patient has not taken bp meds racquel stewart 03-10-2024 08:44-0500 Heart rate 76 /min Jhon Gross MD Work Phone: [facility] 03-10-2024 08:44-0500 Respiratory rate 12 /min Jhon Gross MD Work Phone: [facility] [employer] [facility] 03-10-2024 08:44-0500 Systolic blood pressure 160 mm[Hg] Jhon Gross MD Work Phone: [facility] Comment on above: Patient has not taken bp meds racquel stewart 03-03-2024 12:50-0500 Diastolic blood pressure 85 mm[Hg] Jhon Gross MD Work Phone: [facility] 03-03-2024 12:50-0500 Heart rate 89 /min Jhon Gross MD Work Phone: [facility] 03-03-2024 12:50-0500 Respiratory rate 16 /min Jhon Gross MD Work Phone: [facility] 03-03-2024 12:50-0500 Systolic blood pressure 129 mm[Hg] Jhon Gross MD Work Phone: [facility] 02-15-2024 15:58-0500 Body mass index (BMI) [Ratio] 28.87 kg/m2 Evan Jay DO Work Phone: [facility] 02-15-2024 15:58-0500 Body weight 93.89 kg Evan Jay DO Work Phone: [facility] 02-15-2024 15:58-0500 Diastolic blood pressure 72 mm[Hg] Evan Jay DO Work Phone: [facility] 02-15-2024 15:58-0500 Systolic blood pressure 124 mm[Hg] Evan Jay DO Work Phone: [facility] 02-11-2024 14:33-0500 Body height 180.34 cm Randy Furlong DO Work Phone: [facility] 02-11-2024 14:33-0500 Body mass index (BMI) [Ratio] 28.5 kg/m2 Randy Furlong DO Work Phone: [facility] 02-11-2024 14:33-0500 Body temperature 98.2 [degF] Randy Furlong DO Work Phone: [facility] 02-11-2024 14:33-0500 Body weight 92.98 kg Randy Furlong DO Work Phone: [facility] 02-11-2024 14:33-0500 Diastolic blood pressure 82 mm[Hg] Randy Furlong DO Work Phone: [facility] 02-11-2024 14:33-0500 Heart rate 90 /min Randy Furlong DO Work Phone: [facility] 02-11-2024 14:33-0500 Systolic blood pressure 125 mm[Hg] Randy Furlong DO Work Phone: [facility] 01-25-2024 10:07-0500 Body height 180.3 cm Yves Coffey MD Work Phone: [facility] 01-25-2024 10:07-0500 Body mass index (BMI) [Ratio] 29.29 kg/m2 Yves Coffey MD Work Phone: [facility] 01-25-2024 10:07-0500 Body weight 95.25 kg Yves Coffey MD Work Phone: [facility] 12-29-2023 08:49-0400 Diastolic blood pressure 86 mm[Hg] Shereen Smallwood PA-C Work Phone: [facility] [employer] [facility] [facility] 12-29-2023 08:49-0400 Heart rate 111 /min Shereen Smallwood PA-C Work Phone: [facility] [employer] [facility] 12-29-2023 08:49-0400 Respiratory rate 14 /min Shereen Smallwood PA-C Work Phone: [facility] [employer] [facility] 12-29-2023 08:49-0400 Systolic blood pressure 143 mm[Hg] Shereen Smallwood PA-C [facility] 12-28-2023 21:30-0400 Diastolic blood pressure 95 mm[Hg] Rusty Clifford [facility] 12-28-2023 21:30-0400 Heart rate 85 /min Rusty Clifford [facility] 12-28-2023 21:30-0400 Mean blood pressure 114 mm[Hg] Rusty Clifford [facility] 12-28-2023 21:30-0400 Respiratory rate 16 /min Rusty Clifford [facility] 12-28-2023 21:30-0400 SaO2% (BldA) [Mass fraction] 94 % Rusty Clifford [facility] 12-28-2023 21:30-0400 Systolic blood pressure 153 mm[Hg] Rusty Clifford [facility] 12-28-2023 21:00-0400 Diastolic blood pressure 96 mm[Hg] Rusty Clifford [facility] 12-28-2023 21:00-0400 Heart rate 89 /min Rusty Clifford [facility] 12-28-2023 21:00-0400 Mean blood pressure 119 mm[Hg] Rusty Clifford [facility] 12-28-2023 21:00-0400 SaO2% (BldA) [Mass fraction] 96 % Rusty Clifford [facility] 12-28-2023 21:00-0400 Systolic blood pressure 164 mm[Hg] Rusty Clifford [facility] 12-28-2023 20:27-0400 Body temperature 98.24 [degF] Rusty Clifford [facility] 12-28-2023 20:27-0400 Diastolic blood pressure 86 mm[Hg] Rusty Clifford [facility] 12-28-2023 20:27-0400 Heart rate 95 /min Rusty Clifford [facility] 12-28-2023 20:27-0400 Respiratory rate 16 /min Rusty Clifford [facility] 12-28-2023 20:27-0400 SaO2% (BldA) [Mass fraction] 97 % Rusty Clifford [facility] 12-28-2023 20:27-0400 Systolic blood pressure 154 mm[Hg] Rusty Clifford [facility] 12-21-2023 13:57-0400 Diastolic blood pressure 84 mm[Hg] Marisela Cuevas WEB DEVELOPMENT INSTRUCTOR-DIAL SCREW ASSEMBLER Work Phone: [facility] 12-21-2023 13:57-0400 Heart rate 96 /min Marisela Cuevas WEB DEVELOPMENT INSTRUCTOR-DIAL SCREW ASSEMBLER Work Phone: [facility] 12-21-2023 13:57-0400 Respiratory rate 14 /min Marisela Cuevas WEB DEVELOPMENT INSTRUCTOR-DIAL SCREW ASSEMBLER Work Phone: [place] [employer] [facility] 12-21-2023 13:57-0400 Systolic blood pressure 141 mm[Hg] Marisela Cuevas WEB DEVELOPMENT INSTRUCTOR-DIAL SCREW ASSEMBLER Work Phone: [facility] [employer] [facility] 12-14-2023 14:14-0400 Body height 180.3 cm Suzette Mason PA [facility] 12-14-2023 14:14-0400 Body mass index (BMI) [Ratio] 29.15 kg/m2 Suzette Mason PA Work Phone: [facility] [employer] [facility] 12-14-2023 14:14-0400 Body weight 94.8 kg Suzette Romp PA Work Phone: [facility] [employer] [facility] 12-14-2023 14:14-0400 Diastolic blood pressure 87 mm[Hg] Suzette Romp PA Work Phone: [facility] [employer] [facility] 12-14-2023 14:14-0400 Heart rate 86 /min Suzette Romp PA Work Phone: [facility] [employer] [facility] 12-14-2023 14:14-0400 Respiratory rate 18 /min Suzette Romp PA Work Phone: [facility] [employer] 12-14-2023 14:14-0400 Systolic blood pressure 142 mm[Hg] Suzette Romp PA Work Phone: [facility] [facility] 12-09-2023 11:55-0400 Body temperature 97.5 [degF] Amy Singh MD Work Phone: [facility] [employer] [facility] 12-09-2023 11:55-0400 Diastolic blood pressure 70 mm[Hg] Amy Singh MD Work Phone: [facility] [employer] [facility] 12-09-2023 11:55-0400 Heart rate 75 /min Amy Singh MD Work Phone: [facility] [employer] [facility] 12-09-2023 11:55-0400 SaO2% (BldA) [Mass fraction] 99 % Amy Singh MD Work Phone: [facility] [employer] [facility] 12-09-2023 11:55-0400 Systolic blood pressure 125 mm[Hg] Amy Singh MD Work Phone: [facility] [employer] [facility] 12-09-2023 09:14-0400 Respiratory rate 18 /min Amy Singh MD Work Phone: [facility] [employer] [facility] 12-05-2023 05:53-0400 Body mass index (BMI) [Ratio] 30.29 kg/m2 Amy Singh MD Work Phone: [facility] [employer] [facility] 12-05-2023 05:53-0400 Body weight 98.5 kg Amy Singh MD Work Phone: [place] [employer] [facility] 12-03-2023 00:06-0400 Body height 180.3 cm Amy Singh MD Work Phone: [facility] 12-02-2023 10:210400 Body height 180.3 cm Jhon Gross MD Work Phone: [facility] 12-02-2023 10:21-0400 Body mass index (BMI) [Ratio] 29.29 kg/m2 Jhon Gross MD Work Phone: [facility] 12-02-2023 10:21-040 Body temperature 97.39 [degF] Jhon Gross MD Work Phone: [facility] 12-02-2023 10:21-0400 Body weight 95.2 kg Jhon Gross MD Work Phone: [facility] 12-02-2023 10:21-0400 Diastolic blood pressure 88 mm[Hg] Jhon Gross MD Work Phone: [facility] 12-02-2023 10:21-0400 Heart rate 84 /min Jhon Gross MD Work Phone: [facility] 12-02-2023 10:21-0400 Respiratory rate 14 /min Jhon Gross MD Work Phone: [facility] 12-02-2023 10:21-0400 Systolic blood pressure 142 mm[Hg] Jhon Gross MD Work Phone: [facility] 11-26-2023 11:54-0400 Diastolic blood pressure 82 mm[Hg] Jhon Gross MD Work Phone: [facility] 11-26-2023 11:54-0400 Heart rate 93 /min Jhon Gross MD Work Phone: [facility] 11-26-2023 11:54-0400 Respiratory rate 14 /min Jhon Gross MD Work Phone: [facility] 11-26-2023 11:54-0400 Systolic blood pressure 141 mm[Hg] Jhon Gross MD Work Phone: [facility] 11-25-2023 14:53-0400 Diastolic blood pressure 87 mm[Hg] Marisela Cuevas WEB DEVELOPMENT INSTRUCTOR-DIAL SCREW ASSEMBLER Work Phone: [facility] 11-25-2023 14:53-0400 Heart rate 99 /min Marisela Cuevas WEB DEVELOPMENT INSTRUCTOR-DIAL SCREW ASSEMBLER Work Phone: [facility] 11-25-2023 14:53-0400 Respiratory rate 16 /min Marisela Cuevas WEB DEVELOPMENT INSTRUCTOR-DIAL SCREW ASSEMBLER Work Phone: [facility] 11-25-2023 14:53-0400 Systolic blood pressure 122 mm[Hg] Marisela Cuevas WEB DEVELOPMENT INSTRUCTOR-DIAL SCREW ASSEMBLER Work Phone: [facility] 11-18-2023 11:30-0400 Diastolic blood pressure 81 mm[Hg] Marisela Cuevas WEB DEVELOPMENT INSTRUCTOR-DIAL SCREW ASSEMBLER Work Phone: [facility] 11-18-2023 11:30-0400 Heart rate 103 /min Marisela Cuevas WEB DEVELOPMENT INSTRUCTOR-DIAL SCREW ASSEMBLER Work Phone: [facility] 11-18-2023 11:30-0400 Respiratory rate 12 /min Marisela Cuevas WEB DEVELOPMENT INSTRUCTOR-DIAL SCREW ASSEMBLER Work Phone: [facility] 11-18-2023 11:30-0400 Systolic blood pressure 121 mm[Hg] Marisela Cuevas WEB DEVELOPMENT INSTRUCTOR-DIAL SCREW ASSEMBLER Work Phone: [facility] 11-11-2023 13:35-0400 Diastolic blood pressure 81 mm[Hg] Marisela Cuevas WEB DEVELOPMENT INSTRUCTOR-DIAL SCREW ASSEMBLER Work Phone: [facility] 11-11-2023 13:35-0400 Heart rate 98 /min Marisela Cuevas WEB DEVELOPMENT INSTRUCTOR-DIAL SCREW ASSEMBLER Work Phone: [facility] 11-11-2023 13:35-0400 Respiratory rate 16 /min Marisela Cuevas WEB DEVELOPMENT INSTRUCTOR-DIAL SCREW ASSEMBLER Work Phone: [facility] 11-11-2023 13:35-0400 Systolic blood pressure 125 mm[Hg] Marisela Cuevas WEB DEVELOPMENT INSTRUCTOR-DIAL SCREW ASSEMBLER Work Phone: [facility] 11-04-2023 10:46-0400 Diastolic blood pressure 83 mm[Hg] Marisela Cuevas WEB DEVELOPMENT INSTRUCTOR-DIAL SCREW ASSEMBLER Work Phone: [facility] 11-04-2023 10:46-0400 Heart rate 87 /min Marisela Cuevas WEB DEVELOPMENT INSTRUCTOR-DIAL SCREW ASSEMBLER Work Phone: [facility] 11-04-2023 10:46-0400 Respiratory rate 14 /min Marisela Cuevas WEB DEVELOPMENT INSTRUCTOR-DIAL SCREW ASSEMBLER Work Phone: [facility] 11-04-2023 10:46-0400 Systolic blood pressure 129 mm[Hg] Marisela Cuevas WEB DEVELOPMENT INSTRUCTOR-DIAL SCREW ASSEMBLER Work Phone: [facility] 10-16-2023 12:07-0400 Body temperature 97.9 [degF] [facility] 10-16-2023 12:07-0400 Diastolic blood pressure 76 mm[Hg] [facility] 10-16-2023 12:07-0400 Heart rate 83 /min [facility] 10-16-2023 12:07-0400 Respiratory rate 20 /min [facility] 10-16-2023 12:07-0400 SaO2% (BldA) [Mass fraction] 99 % [facility] 10-16-2023 12:07-0400 Systolic blood pressure 118 mm[Hg] [facility] 10-16-2023 11:54-0400 Body height 180.3 cm [facility] 10-16-2023 11:54-0400 Body mass index (BMI) [Ratio] 31.55 kg/m2 [facility] [address] [place] [address] 10-16-2023 11:54-0400 Body weight 102.[address] 10-01-2023 13:03-0400 Body height 180.34 cm DO Randy Furlong Work Phone: [facility] 10-01-2023 13:03-0400 Body mass index (BMI) [Ratio] 31.6 kg/m2 DO Randy Furlong Work Phone: [facility] 10-01-2023 13:03-0400 Body weight 102.96 kg DO Randy Furlong Work Phone: [facility] 10-01-2023 13:03-0400 Diastolic blood pressure 62 mm[Hg] DO Randy Furlong Work Phone: [facility] 10-01-2023 13:03-0400 Heart rate 80 /min DO Randy Furlong Work Phone: [facility] 10-01-2023 13:03-0400 Respiratory rate 18 /min DO Randy Furlong Work Phone: [facility] 10-01-2023 13:03-0400 SaO2% (BldA) [Mass fraction] 100 % DO Randy Furlong Work Phone: [facility] 10-01-2023 13:03-0400 Systolic blood pressure 113 mm[Hg] DO Randy Furlong Work Phone: [facility] 08-20-2023 10:14-0400 Body height 180.3 cm Jhon Gross MD Work Phone: [place] [employer] [facility] 08-20-2023 10:14-0400 Body mass index (BMI) [Ratio] 32.39 kg/m2 Jhon Gross MD Work Phone: [facility] 08-20-2023 10:14-0400 Body weight 105.33 kg Jhon Gross MD Work Phone: [facility] 08-20-2023 10:14-0400 Diastolic blood pressure 81 mm[Hg] Jhon Gross MD Work Phone: [facility] 08-20-2023 10:14-0400 Heart rate 84 /min Jhon Gross MD Work Phone: [facility] 08-20-2023 10:14-0400 Respiratory rate 18 /min Jhon Gross MD Work Phone: [facility] 08-20-2023 10:14-0400 Systolic blood pressure 128 mm[Hg] Jhon Gross MD Work Phone: [facility] 07-30-2023 15:05-0400 Body height 180.3 cm Christy He MD Work Phone: [facility] 07-30-2023 15:05-0400 Body mass index (BMI) [Ratio] 32.26 kg/m2 Christy He MD Work Phone: [facility] 07-30-2023 15:05-0400 Body weight 104.87 kg Christy He MD Work Phone: [facility] 07-30-2023 15:05-0400 Diastolic blood pressure 68 mm[Hg] Christy He MD Work Phone: [facility] 07-30-2023 15:05-0400 Systolic blood pressure 110 mm[Hg] Christy He MD Work Phone: [facility] 04-28-2023 08:07-0500 Body height 180.3 cm Christy He MD Work Phone: [facility] 04-28-2023 08:07-0500 Body mass index (BMI) [Ratio] 30.42 kg/m2 Christy He MD Work Phone: [facility] 04-28-2023 08:07-0500 Body weight 98.88 kg Christy He MD Work Phone: [facility] 04-28-2023 08:07-0500 Diastolic blood pressure 80 mm[Hg] Christy He MD Work Phone: [facility] 04-28-2023 08:07-0500 Heart rate 74 /min Christy He MD Work Phone: [facility] 04-28-2023 08:07-0500 Respiratory rate 16 /min Christy He MD Work Phone: [facility] 04-28-2023 08:07-0500 Systolic blood pressure 120 mm[Hg] Christy He MD Work Phone: [facility] 04-10-2023 15:17-0500 Blood Pressure Location Sandrita NILL [facility] [place] 04-10-2023 15:17-0500 Diastolic blood pressure 80 mm[Hg] Sandrita NILL [facility] [place] 04-10-2023 15:17-0500 Heart rate 72 /min Sandrita NILL [facility] [place] 04-10-2023 15:17-0500 Respiratory rate 16 /min Sandrita NILL [facility] [place] 04-10-2023 15:17-0500 Systolic blood pressure 116 mm[Hg] Sandrita NILL [facility] [place] 04-02-2023 11:41-0500 Body mass index (BMI) [Ratio] 30.68 kg/m2 Evan Morao DO Work Phone: [facility] 04-02-2023 11:41-0500 Body weight 99.79 kg Evan Jay DO Work Phone: [facility] 04-02-2023 11:41-0500 Diastolic blood pressure 72 mm[Hg] Evan Jay DO Work Phone: [facility] 04-02-2023 11:41-0500 Systolic blood pressure 124 mm[Hg] Evan Jay DO Work Phone: [facility] 09-29-2022 14:29-0400 Body height 180.34 cm Randy G Furlong Work Phone: [facility] [employer] [facility] DO Work Phone: 09-29-2022 14:29-0400 Body mass index (BMI) [Ratio] 31.52 kg/m2 Randy G Furlong Work Phone: [facility] [facility] DO Work Phone: 09-29-2022 14:29-0400 Body surface area Derived from formula 2.22 m2 Randy G Furlong Work Phone: [facility] [facility] DO Work Phone: 09-29-2022 14:29-0400 Body weight 102.51 kg Randy G Furlong Work Phone: [facility] DO Work Phone: 09-29-2022 14:29-0400 Diastolic blood pressure 88 mm[Hg] Randy G Furlong Work Phone: [facility] DO Work Phone: 09-29-2022 14:29-0400 Heart rate 76 /min Randy G Furlong Work Phone: [facility] DO Work Phone: 09-29-2022 14:29-0400 Systolic blood pressure 138 mm[Hg] Randy G Furlong Work Phone: [facility] [facility] DO Work Phone: 09-12-2022 14:56-0400 Body height 180.34 cm Randy G Furlong Work Phone: [facility] [facility] DO Work Phone: 09-12-2022 14:56-0400 Body mass index (BMI) [Ratio] 30.96 kg/m2 Randy G Furlong Work Phone: [facility] [facility] DO Work Phone: 09-12-2022 14:56-0400 Body surface area Derived from formula 2.2 m2 Randy G Furlong Work Phone: [facility] [address] DO Work Phone: 09-12-2022 14:56-0400 Body weight 100.7 kg Randy G Furlong Work Phone: [facility] [facility] DO Work Phone: 09-12-2022 14:56-0400 Diastolic blood pressure 88 mm[Hg] Randy G Furlong Work Phone: [facility] DO Work Phone: 09-12-2022 14:56-0400 Heart rate 78 /min Randy G Furlong Work Phone: [facility] DO Work Phone: 09-12-2022 14:56-0400 Systolic blood pressure 132 mm[Hg] Randy G Furlong Work Phone: [facility] [facility] DO Work Phone: 08-22-2022 09:47-0400 Diastolic blood pressure 100 mm[Hg] Randy G Furlong Work Phone: [facility] DO Work Phone: 08-22-2022 09:47-0400 Systolic blood pressure 142 mm[Hg] Randy G Furlong Work Phone: [facility] [facility] DO Work Phone: 08-22-2022 09:46-0400 Body height 180.34 cm Randy G Furlong Work Phone: [facility] [facility] DO Work Phone: 08-22-2022 09:46-0400 Body mass index (BMI) [Ratio] 30.68 kg/m2 Randy G Furlong Work Phone: [facility] [facility] DO Work Phone: 08-22-2022 09:46-0400 Body surface area Derived from formula 2.2 m2 Randy G Furlong Work Phone: [facility] [facility] DO Work Phone: 08-22-2022 09:46-0400 Body weight 99.79 kg Randy Jaramillo Furlong Work Phone: [facility] [facility] DO Work Phone: 08-22-2022 09:46-0400 Diastolic blood pressure 102 mm[Hg] Randy G Furlong Work Phone: [facility] DO Work Phone: 08-22-2022 09:46-0400 Heart rate 74 /min Randy G Furlong Work Phone: [facility] [facility] DO Work Phone: 08-22-2022 09:46-0400 Systolic blood pressure 148 mm[Hg] Randy G Furlong Work Phone: [facility] [facility] DO Work Phone: 07-21-2022 08:15-0400 Diastolic blood pressure 88 mm[Hg] Randy G Furlong Work Phone: [facility] DO Work Phone: 07-21-2022 08:15-0400 Systolic blood pressure 122 mm[Hg] Randy G Furlong Work Phone: [facility] [facility] DO Work Phone: 07-21-2022 08:14-0400 Body height 180.34 cm Randy G Furlong Work Phone: [facility] DO Work Phone: 07-21-2022 08:14-0400 Body mass index (BMI) [Ratio] 30.82 kg/m2 Randy G Furlong Work Phone: [facility] DO Work Phone: 07-21-2022 08:14-0400 Body surface area Derived from formula 2.2 m2 Randy G Furlong Work Phone: [facility] DO Work Phone: 07-21-2022 08:14-0400 Body weight 100.25 kg Randy G Furlong Work Phone: [facility] DO Work Phone: 07-21-2022 08:14-0400 Diastolic blood pressure 86 mm[Hg] Randy G Furlong Work Phone: [facility] DO Work Phone: 07-21-2022 08:14-0400 Heart rate 59 /min Randy G Furlong Work Phone: [facility] DO Work Phone: 07-21-2022 08:14-0400 Systolic blood pressure 132 mm[Hg] Randy G Furlong Work Phone: [facility] DO Work Phone: 07-14-2022 14:02-0400 Body temperature 99.32 [degF] Reid Bauer [facility] 07-14-2022 14:02-0400 Diastolic blood pressure 86 mm[Hg] Reid Bauer [facility] 07-14-2022 14:02-0400 Heart rate 76 /min Reid Bauer [facility] 07-14-2022 14:02-0400 SaO2% (BldA) [Mass fraction] 98 % Reid Bauer [facility] 07-14-2022 14:02-0400 Systolic blood pressure 120 mm[Hg] Reid Bauer [facility] 11-11-2021 19:25-0400 Body height 180.34 cm Jesusita Chirinosault Other [employer] [facility] [employer] Other 11-11-2021 19:25-0400 Body mass index (BMI) [Ratio] 28.59 kg/m2 Jesusita Marlen Other [employer] [facility] [employer] Other 11-11-2021 19:25-0400 Body temperature 98.1 [degF] Jesusita Marlen Other [employer] Other 11-11-2021 19:25-0400 Body weight 92.99 kg Jesusita Marlen Other [employer] Other 11-11-2021 19:25-0400 Respiratory rate 18 /min Jesusita Marlen Other [employer] Other 11-11-2021 19:25-0400 SaO2% (BldA) [Mass fraction] 96 % Jesusita Chirinosault Other [employer] Other Encounters Encounter Date Encounter Type Care Provider Facility Start: 11-01-2024 End: 11-01-2024 [facility]phone [facility] Start: 10-27-2024 End: 10-27-2024 ambulatory Randy Calle DO Work Phone: [facility] Work Phone: Start: 10-27-2024 End: 10-27-2024 Patient encounter procedure Quincy Colbert MD -[facility] Work Phone: Start: 10-26-2024 End: 10-26-2024 ambulatory MARISELA Eason CUEVAS [facility] Start: 10-26-2024 End: 10-26-2024 Postop follow up visit related to original px Marisela Cueavs WEB DEVELOPMENT INSTRUCTOR-DIAL SCREW ASSEMBLER Work Phone: [facility] Comment on above: Breast wound, left, sequela (Primary Dx); Encounter for postoperative care; Complicated wound infection Start: 10-26-2024 End: 10-26-2024 Office outpatient visit 15 minutes Raymond Sepulveda MD Work Phone: [facility], A Department of [facility] Comment on above: Malignant neoplasm o f right breast metastatic to brain ([facility]- HCC) (Primary Dx); Malignant neoplasm of lower-inner quadrant of right breast of female, estrogen receptor positive (CMS-HCC) Start: 10-26-2024 End: 10-26-2024 ambulatory RAYMOND SEPULVEDA [facility] Start: 10-25-2024 ambulatory [facility] Start: 10-18-2024 End: 10-18-2024 ambulatory [facility] Start: 10-12-2024 End: 10-12-2024 Evaluation and management of inpatient [facility] Start: 10-11-2024 End: 10-11-2024 Evaluation and management of inpatient RICHIE HANNA [facility] Start: 2024 End: 10-11-2024 Orders Only Richie Hanna WEB DEVELOPMENT INSTRUCTOR-DIAL SCREW ASSEMBLER Work Phone: [facility] Comment on above: Malignant neoplasm o f right breast metastatic to brain (CMS- HCC) (Primary Dx) Start: 10-07-2024 End: 10-14-2024 Patient encounter procedure Marcos Mcgill MD Work Phone: [facility] Start: 10-07-2024 End: 10-14-2024 Radiation Oncology Note Marcos Mcgill MD Work Phone: [facility] Comment on above: Completion Note Procedure Start: 10-07-2024 End: 10-07-2024 Telephone encounter Jhon Gross MD Work Phone: [facility] Start: 10-07-2024 End: 10-07-2024 ambulatory RICHIE HANNA Facility:[facility] Start: 10-07-2024 End: 10-07-2024 Subsequent hospital visit by physician Mri Main Ca (1.5t) Work Phone: Radiology Comment on above: 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] Start: 10-07-2024 End: 10-07-2024 ambulatory RICHIE HANNA Facility:[facility] Start: 10-05-2024 End: 10-05-2024 Postop follow up visit related to original px Marisela Yumi Cuevas WEB DEVELOPMENT INSTRUCTOR-DIAL SCREW ASSEMBLER Work Phone: [facility] Comment on above: Breast wound, left, sequela (Primary Dx); Infection of deep incisional surgical site after procedure, subsequent encounter Start: 10-05-2024 End: 10-05-2024 ambulatory MARISELA CUEVAS [facility] Start: 09-26-2024 ambulatory RICHIE HANNA Facil ity:[facility] Start: 09-23-2024 End: 09-23-2024 Orders Only Richie L Jacques WEB DEVELOPMENT INSTRUCTOR-DIAL SCREW ASSEMBLER Work Phone: [facility] Comment on above: Reactive depression (Primary Dx); Anxiety Education Diagnostician - O ther Start: 09-22-2024 End: 09-22-2024 ambulatory JHON GROSS [facility] Start: 09-22-2024 End: 09-23-2024 Telephone encounter Josue Mccain DO, PhD Work Phone: [facility] Start: 09-20-2024 End: 09-29-2024 Orders Only Richie Thomas Jacques RICHTER-DIAL SCREW ASSEMBLER Work Phone: [facility] Start: 09-19-2024 End: 09-20-2024 Refill Richie Hanna APRN-DIAL SCREW ASSEMBLER Work Phone: [facility] Start: 09-16-2024 End: 09-16-2024 E-mail encounter from caregiver Alessandra Dennisopf EVAN Work Phone: Hematology/Oncology Start: 09-16-2024 End: 09-16-2024 Follow-up encounter Alessandra Yahaira GORDON Work Phone: Hematology/Oncology Comment on above: Follow up Start: 09-16-2024 End: 09-16-2024 Postop follow up visit related to original px Geno Marionzainabmateusz EVAN Work Phone: Plastic Surgery Comment on above: Post-operative state (Primary Dx); S/P breast reconstruction; History of breast cancer Start: 09-16-2024 End: 09-16-2024 Patient encounter procedure Alessandra Yahaira GORDON Work Phone: Hematology/Oncology Start: 09-16-2024 End: 09-16-2024 ambulatory Alessandramichaelle Syed APRN.CNP Work Phone: Hematology/Oncology Comment on above: Breast cancer metast asized to liver, unspecified laterality (HCC) (Primary Dx); Encounter for medication monitoring Start: 09-13-2024 End: 09-14-2024 ambulatory [facility] Start: 09-08-2024 End: 09-08-2024 Office outpatient visit [...] Start: 09-08-2024 End: 09-08-2024 ambulatory SHEREEN SMALLWOOD [facility] Start: 09-07-2024 End: 09-08-2024 Radiation Oncology Note Sam Melo MD Work Phone: Radiation Oncology Comment on above: Procedure Simulation Note Completion Note Start: 09-07-2024 End: 09-08-2024 Patient encounter procedure Placement Neus Naye Ll Work Phone: Neurosurgery Comment on above: Secondary malignant neoplasm of brain (HCC) (Primary Dx) Start: 09-07-2024 End: 09-07-2024 Subsequent hospital visit by physician Seth Yancey (1.5t) Work Phone: Radiology Comment on above: 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] Start: 09-07-2024 End: 09-07-2024 ambulatory Josue Mccain DO, PhD Work Phone: [facility] Comment on above: Cancer of right [address] metastatic to brain (HCC) (Primary Dx) Start: 09-05-2024 End: 09-05-2024 Telemedicine consultation with patient Marisela Cisneros MD Work Phone: Radiation Oncology Start: 09-05-2024 End: 09-05-2024 Telephone encounter [facility] Start: 09-05-2024 End: 09-05-2024 ambulatory Marisela Cisneros MD Work Phone: Radiation Oncology Comment on above: 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) Start: 09-01-2024 ambulatory RICHIE HANNA Facil ity:[facility] Start: 08-31-2024 End: 09-07-2024 Telephone encounter Jhon Gross MD Work Phone: [facility] Start: 08-26-2024 End: 09-01-2024 Evaluation and management of inpatient RICHIE HANNA Facility:[facility] Start: 08-25-2024 End: 08-25-2024 Orders Only Richie Hanna WEB DEVELOPMENT INSTRUCTOR-DIAL SCREW ASSEMBLER Work Phone: [facility] Start: 08-24-2024 Registered Recurring Shereen Smallwood PA-C -Infusion Therapy - O/P Work Phone: Start: 08-24-2024 ambulatory Shereen Smallwood Faci lity:[facility] Start: 08-18-2024 End: 08-18-2024 Postop follow up visit related to original px Shereen Smallwood PA-C Work Phone: [facility] Comment on above: Breast wound, left, sequela (Primary Dx); Complicated wound infection Start: 08-18-2024 End: 08-18-2024 ambulatory SHEREEN SMALLWOOD [facility] Start: 08-17-2024 End: 08-17-2024 ambulatory GENERIC RESEARCH [facility] Start: 08-16-2024 End: 08-17-2024 ambulatory [facility] Start: 08-12-2024 End: 08-12-2024 Telephone encounter Jhon Gross MD Work Phone: [facility] Start: 08-12-2024 End: 08-12-2024 Evaluation and management of inpatient RICHIE HANNA [facility] Start: 08-11-2024 End: 08-11-2024 Evaluation and management of inpatient RICHIE Thomas [facility] Start: 08-10-2024 End: 08-10-2024 ambulatory [facility] Start: 08-10-2024 End: 08-10-2024 Transitional care manage srvc 14 day discharge [facility] DO Work Phone: [facility] Comment on above: Mycobacterium absces nathan infection (Primary Dx); Malignant neoplasm of lower-inner quadrant of right breast of female, estrogen receptor positive ([facility]-HCC) Start: 08-10-2024 End: 08-12-2024 Follow-up encounter Bobby Christy MD Work Phone: Hematology/Oncology Start: 08-10-2024 End: 08-11-[address] [facility] Phone Call Provider 4 [facility] Start: 08-09-2024 End: 08-09-2024 Telephone encounter Jhon Gross MD Work Phone: [facility] Start: 08-08-2024 End: 08-08-2024 [facility] Start: 08-08-2024 End: 08-08-2024 Postop follow up visit related to original px Shereen DUFFY-C Work Phone: [facility] Comment on above: Breast wound, left, sequela (Primary Dx); Complicated wound infection Start: 08-04-2024 End: 08-04-2024 Orders Only Shereen Smallwood PA-C Work Phone: [facility] Start: 08-03-2024 End: 08-03-2024 [facility] Start: 08-03-2024 End: 08-03-2024 Postop follow up visit related to original px Shereen Smallwood PA-C Work Phone: [facility] Comment on above: Breast wound, left, sequela (Primary Dx); Mycobacterium abscessus infection; Complicated wound infection Start: 07-27-2024 End: 07-27-2024 E-mail encounter from caregiver [facility] Provider Hematology/Oncology Start: 07-27-2024 End: 07-27-2024 Office outpatient visit 10 minutes Raymond Sepulveda MD Work Phone: [facility] A Department of [facility] Comment on above: Pelvic mass in femal e (Primary Dx) Start: 07-27-2024 End: 07-29-2024 ambulatory [facility] Provider Hematology/Oncology Comment on above: Xeloda restart Start: 07-22-2024 End: 07-27-2024 Telephone encounter Bobby Christy MD Work Phone: Hematology/Oncology Comment on above: Education Diagnostician - O ther Start: 07-21-2024 End: 07-22-2024 ambulatory [facility] Facility[facility] Start: 07-19-2024 End: 07-19-2024 Patient encounter procedure Krystin Barillas MD Work Phone: Infectious Disease Comment on above: Abscess (Primary Dx) ; 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 Start: 07-19-2024 End: 07-19-2024 ambulatory [facility] Facility:[facility] Start: 07-18-2024 End: 07-18-2024 Telephone encounter Jhon Gross MD Work Phone: [facility] Start: 07-15-2024 End: 07-15-2024 Evaluation and management of inpatient [facility] Start: 07-15-2024 End: 07-15-[address] [facility] Phone Call Provider 4 [facility] Start: 07-14-2024 End: 07-14-2024 ambulatory [facility] Start: 07-14-2024 End: 07-14-2024 Office outpatient visit 25 minutes [facility] WEB DEVELOPMENT INSTRUCTOR-DIAL SCREW ASSEMBLER Work Phone: [facility] Comment on above: Malignant neoplasm o f lower-inner quadrant of right breast of female, estrogen receptor positive ([facility]-HCC) (Primary Dx); Mycobacterium abscessus infection; Essential hypertension; Acute deep vein thrombosis (DVT) of calf muscle vein of left lower extremity ([facility]-HCC); S/P right heart catheterization Start: 07-13-2024 End: 07-13-2024 Telephone encounter Jhon Gross MD [facility] Start: 07-11-2024 End: 07-11-2024 ambulatory [facility] Start: 07-11-2024 End: 07-11-2024 Postop follow up visit related to original px Marisela Cuevas WEB DEVELOPMENT INSTRUCTOR-DIAL SCREW ASSEMBLER Work Phone: [facility] Comment on above: Encounter for postop erative care (Primary Dx); Breast wound, left, sequela; S/P breast reconstruction, bilateral; Mycobacterium abscessus infection Start: 07-11-2024 End: 07-11-2024 Telephone encounter Marisela Yumi Giovanni WEB DEVELOPMENT INSTRUCTOR-DIAL SCREW ASSEMBLER Work Phone: [facility] Start: 07-11-2024 End: 07-11-2024 [facility] Start: 07-06-2024 End: 07-06-2024 Postop follow up visit related to original px Marisela Cuevas WEB DEVELOPMENT INSTRUCTOR-DIAL SCREW ASSEMBLER Work Phone: [facility] Comment on above: Encounter for postop erative care (Primary Dx); Seroma of breast; Breast wound, left, sequela; S/P breast reconstruction, bilateral Start: 07-06-2024 End: 07-06-2024 [facility] Start: 07-06-2024 End: 07-06-2024 [facility] Start: 07-01-2024 End: 07-01-2024 ambulatory GENERIC RESEARCH [facility] Start: 06-30-2024 End: 06-30-2024 ambulatory GENERIC RESEARCH [facility] Start: 06-30-2024 End: 06-30-2024 ambulatory [facility] Start: 06-29-2024 End: 06-29-2024 Postop follow up visit related to original monalisa Cuevas WEB DEVELOPMENT INSTRUCTOR-DIAL SCREW ASSEMBLER Work Phone: [facility] Comment on above: Encounter for postop erative care (Primary Dx); Seroma of breast; Breast wound, left, sequela; Mycobacterium abscessus infection; S/P breast reconstruction, bilateral Start: 06-29-2024 End: 06-29-2024 ambulatory [facility] Start: 06-29-2024 End: 06-29-2024 ambulatory RAYMOND Berry DERICK [facility] Start: 06-29-2024 End: 06-29-2024 Office outpatient visit 10 minutes Raymond Sepulveda MD Work Phone: [facility] Department of [facility] Comment on above: Pelvic mass in femal e (Primary Dx) Start: 06-24-2024 End: 06-27-2024 Telephone encounter Viviane Lopez CMA [facility] Start: 06-22-2024 End: 06-22-2024 Postop follow up visit related to original monalisa Cuevas WEB DEVELOPMENT INSTRUCTOR-DIAL SCREW ASSEMBLER Work Phone: [facility] Comment on above: Encounter for postop erative care (Primary Dx); Breast wound, left, sequela Start: 06-22-2024 End: 06-22-2024 ambulatory [facility] Start: 06-20-2024 End: 06-20-2024 Chart abstracting Kesha Apple MD Work Phone: Infectious Disease Start: 06-20-2024 End: 06-27-2024 Telephone encounter Viviane Lopez CMA [facility] Start: 06-16-2024 End: 06-16-2024 Telephone encounter Noreen Bro RN [facility] Comment on above: Care Navigation Start: 06-15-2024 End: 06-15-2024 Evaluation and management of inpatient [facility] Start: 06-13-2024 ambulatory [facility] Start: 06-12-2024 ambulatory [facility] Start: 06-11-2024 End: 06-15-2024 Evaluation and management of inpatient RICHIE L [facility] Start: 06-10-2024 End: 06-15-2024 Evaluation and management of inpatient CARLENE U MANSOOR [facility] Start: 06-10-2024 End: 06-10-2024 Telephone encounter Kendra Lewis [place] [facility] Allen garcia Comment on above: Breast Problem Start: 06-08-2024 End: 06-08-2024 ambulatory TRISH LOMBARDO [facility] Start: 06-08-2024 End: 06-08-2024 Postop follow up visit related to original px Trish Grupo CONTE Work Phone: [facility] Comment on above: Encounter for postop erative care (Primary Dx); Breast wound, left, sequela; Erythema of breast; Seroma of breast; Mycobacterium abscessus infection; S/P breast reconstruction, bilateral; Acquired absence of breast, bilateral; History of breast cancer Start: 06-08-2024 End: 06-08-2024 ambulatory RAYMOND SEPULVEDA [facility] Start: 06-08-2024 End: 06-08-2024 Office outpatient visit 10 minutes Raymond Sepulveda MD Work Phone: [facility], A Department of [facility] Comment on above: Malignant neoplasm o f lower-inner quadrant of right breast of female, estrogen receptor positive ([facility]-HCC) (Primary Dx); Pelvic mass in female Start: 06-03-2024 End: 06-03-2024 Patient encounter procedure Randy Calle DO Work Phone: [facility] Work Phone: Start: 06-03-2024 End: 06-03-2024 ambulatory Randy Calle DO Work Phone: [facility] Work Phone: Start: 06-01-2024 End: 06-01-2024 Bamboo flowsheet Evan Jay DO Work Phone: [facility] Start: 06-01-2024 End: 06-03-2024 Bamboo flowsheet Evan Jay DO Work Phone: [facility] Start: 06-01-2024 End: 06-03-2024 Clinisync Result Encounter Evan Jay DO Work Phone: [facility] External Department Unsolicited Start: 06-01-2024 End: 06-01-2024 Telephone encounter Marisela LINDQUIST Work Phone: [facility] Start: 06-01-2024 End: 06-01-2024 ambulatory EVAN JAY Not Available Start: 06-01-2024 End: 06-01-2024 Patient encounter procedure Evan Jay DO Work Phone: [facility] Work Phone: Start: 06-01-2024 End: 06-01-2024 Periodic preventive med est patient 40-64yrs Evan Jay DO Work Phone: [facility] Comment on above: Well woman exam with routine gynecological exam; Breast cancer screening by mammogram; Postmenopausal state Start: 06-01-2024 End: 06-01-2024 ambulatory [facility] Start: 06-01-2024 End: 06-01-2024 Postop follow up visit related to original px Marisela LINDQUIST Work Phone: [facility] Comment on above: Encounter for postop erative care (Primary Dx); Breast wound, left, sequela; Seroma of breast; Mycobacterium abscessus infection; S/P breast reconstruction, bilateral Start: 05-31-2024 ambulatory JUHI Jean [facility] Start: 05-24-2024 Evaluation and management of inpatient ADA JACQUES [facility] Start: 05-23-2024 Emergency department patient visit KAVON VEGAS [facility] Start: 05-23-2024 End: 05-27-2024 Evaluation and management of inpatient HARIS LAY [facility] Start: 05-23-2024 End: 05-23-2024 Telephone encounter Raymond Sepulveda MD Work Phone: [facility], A Department of [facility] Comment on above: Procedure Start: 05-22-2024 End: 05-22-2024 Emergency department patient visit Bárbara David Jose [facility] Start: 05-20-2024 End: 05-20-2024 ambulatory GENERIC RESEARCH [facility] Start: 05-20-2024 End: 05-20-2024 ambulatory HERMAN LUI [facility] Start: 05-19-2024 End: 05-19-2024 Discharged Recurring Randy Cantung DO Work Phone: [facility] - O/P Work Phone: Start: 05-19-2024 Registered Recurring Randy Titus jose eduardoong DO Work Phone: [facility] - O/P Work Phone: Start: 05-19-2024 End: 05-19-2024 ambulatory Randy Halllong DO Work Phone: [facility] Work Phone: Start: 05-18-2024 End: 05-18-2024 ambulatory SHEREEN SMALLWOOD [facility] Start: 05-18-2024 End: 05-18-2024 Postop follow up visit related to original px Shereen Smallwood PA-C Work Phone: [facility] Comment on above: Breast wound, left, sequela (Primary Dx) Start: 05-12-2024 End: 05-12-[address] [facility] Phone Call Provider 1 Khushboo Sultana [facility] Start: 05-12-2024 End: 05-12-2024 Telephone encounter Bobby Otero [facility] - MRI Start: 05-12-2024 End: 05-12-2024 Evaluation and management of inpatient RICHIE HANNA [facility] Start: 05-02-2024 End: 05-13-2024 Evaluation and management of inpatient CARLENE U MANSOOR [facility] Start: 05-01-2024 Non-patient / Non-visit Randy Calle DO Work Phone: [facility] Work Phone: Start: 04-29-2024 End: 05-02-2024 Documentation procedure Marisela Cuevas APRN-DIAL SCREW ASSEMBLER Work Phone: [facility] Start: 04-28-2024 End: 04-28-2024 Postop follow up visit related to original px Jhon Gross MD Work Phone: [facility] Comment on above: Encounter for postop erative care (Primary Dx); Seroma of breast; S/P breast reconstruction, bilateral; Breast wound, left, sequela Start: 04-28-2024 End: 04-28-2024 ambulatory JHON GROSS [facility] Start: 04-26-2024 End: 04-26-2024 ambulatory Evan Jay DO Work Phone: [facility] Work Phone: Start: 04-26-2024 End: 04-26-2024 Patient encounter procedure Evan Jay DO Work Phone: [facility] Work Phone: Start: 04-26-2024 End: 04-26-2024 Telephone encounter Viviane Lopez CMA [facility] Start: 04-22-2024 End: 02-21-2025 Telephone encounter Marisela Cuevas APRN-DIAL SCREW ASSEMBLER Work Phone: [facility] [...] visit related to original px Marisela Eason Cuevas WEB DEVELOPMENT INSTRUCTOR-DIAL SCREW ASSEMBLER Work Phone: [facility] Comment on above: Encounter for postop erative care (Primary Dx); Seroma of breast; S/P breast reconstruction, bilateral; Breast wound, left, sequela Start: 04-20-2024 End: 04-20-2024 ambulatory MARISELAVLADIMIR CUEVAS [facility] Start: 04-20-2024 End: 04-20-2024 ambulatory [facility] Start: 04-13-2024 End: 04-13-2024 Bamboo flowsheet Nasreen Li [facility] Work Phone: [facility] Start: 04-13-2024 End: 04-13-2024 Bamboo flowsheet Nasreen Li [facility] Work Phone: [facility] Start: 04-13-2024 End: 04-13-2024 Postop follow up visit related to original px Marisela Cuevas WEB DEVELOPMENT INSTRUCTOR-DIAL SCREW ASSEMBLER Work Phone: [facility] Comment on above: Encounter for postop erative care (Primary Dx); Seroma of breast; S/P breast reconstruction, bilateral; Mycobacterium abscessus infection; Breast wound, left, sequela Start: 04-13-2024 End: 04-13-2024 ambulatory MARISELA CUEVAS [facility] Start: 04-13-2024 End: 04-13-2024 Office outpatient new 60 minutes Raymond Sepulveda MD Work Phone: [facility] A Department of [facility] Comment on above: Malignant neoplasm o f lower-inner quadrant of right breast of female, estrogen receptor positive (CMS-HCC) (Primary Dx); Pelvic mass in female Start: 04-13-2024 End: 04-13-2024 Clinical Support Nasreen Li [facility] Work Phone: [facility] Comment on above: 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 (Primary Dx) Start: 04-07-2024 End: 04-07-2024 Clinisync Result Encounter Evan Jay DO Work Phone: [facility] External Department Unsolicited Start: 04-07-2024 End: 04-07-2024 Clinisync Result Encounter Evan Jay DO Work Phone: [facility] External Department Unsolicited Start: 04-07-2024 End: 04-07-2024 ambulatory Randy Esteralannang DO Work Phone: [facility] Work Phone: Start: 04-07-2024 End: 04-07-2024 Departed Referred Randy Halllong DO Work Phone: [facility] Start: 04-07-2024 End: 04-07-2024 ambulatory Ulisses GONSALEZ Facility:[id number] Start: 03-30-2024 End: 03-30-2024 Postop follow up visit related to original px Marisela Eason Giovanni WEB DEVELOPMENT INSTRUCTOR-DIAL SCREW ASSEMBLER Work Phone: [facility] Comment on above: Encounter for postop erative care (Primary Dx); S/P breast reconstruction, bilateral; Mycobacterium abscessus infection; Breast wound, left, sequela Start: 03-30-2024 End: 03-30-2024 ambulatory MARISELA CUEVAS [facility] Start: 03-21-2024 End: 03-21-2024 Evaluation and management of inpatient [facility] Start: 03-21-2024 End: 03-21-2024 Evaluation and management of inpatient [facility] Start: 03-18-2024 End: 03-18-2024 Evaluation and management of inpatient [facility] Start: 03-18-2024 End: 03-18-[address] [facility] Phone Call Provider 4 Khushboo Sultana [facility] Start: 03-16-2024 End: 03-16-2024 ambulatory JOSSY MOODY [facility] Start: 03-15-2024 End: 03-15-2024 Telephone encounter [facility] Start: 03-14-2024 End: 03-14-2024 ambulatory Randy Furlong DO Work Phone: [facility] Work Phone: Start: 03-14-2024 End: 03-14-2024 Patient encounter procedure Randy Furlong DO Work Phone: [facility] Work Phone: Start: 03-10-2024 [...] End: 03-10-2024 Preprocedural examination done Evan Thompson Work Phone: [facility] Start: 03-10-2024 End: 03-10-2024 [facility] Start: 03-10-2024 End: 03-10-2024 Postop follow up visit related to original px Jhon Gross MD Work Phone: [facility] Comment on above: Postoperative visit (Primary Dx); Mycobacterium abscessus infection; S/P breast reconstruction, bilateral; Malignant neoplasm of lower-inner quadrant of right breast of female, estrogen receptor positive ([facility]-H[facility]) Start: 03-03-2024 End: 03-03-2024 Postop follow up visit related to original px Jhon Gross MD Work Phone: [facility] Comment on above: Mycobacterium absces nathan infection (Primary Dx); S/P breast reconstruction, bilateral; Malignant neoplasm of lower-inner quadrant of right breast of female, estrogen receptor positive ([facility]-HCC) Start: 03-03-2024 End: 03-03-2024 [facility] Start: 03-02-2024 End: 03-02-2024 Telephone encounter Arlet Selby [place] Z[facility] garcia Comment on above: critical lab Start: 02-29-2024 End: 03-17-2024 Telephone encounter Joya [facility] Start: 02-26-2024 End: 02-26-2024 [facility] Start: 02-26-2024 End: 02-26-2024 Evaluation and management of inpatient RICHIE HANNA [facility] Start: 02-25-2024 End: 02-25-2024 [facility] Start: 02-23-2024 End: 02-25-2024 Telephone encounter Graciela Borges LARRY OPERATOR [facility] Allen garcia Comment on above: Post-op Problem Start: 02-19-2024 ambulatory Rusty Horton Facility: [facility] Start: 02-17-2024 End: 02-17-2024 ambulatory GENERIC RESEARCH [facility] Start: 02-16-2024 End: 02-16-2024 ambulatory HERMAN [facility] Start: 02-15-2024 End: 02-15-2024 Office outpatient visit [...] 02-11-2024 End: 02-11-2024 Patient encounter procedure Randylinnea Hallalannang DO Work Phone: [facility] Infect Dis Work Phone: Start: 02-10-2024 End: 02-10-2024 Telephone encounter Yves Coffey MD Work Phone: [facility] Start: 02-10-2024 Registered Recurring Randy whittong DO [facility] Work Phone: Start: 02-08-2024 Non-patient / Non-visit Randy Furalannang DO Work Phone: [facility] Work Phone: Start: 02-01-2024 End: 02-01-2024 ambulatory YVES COFFEY Not Available Start: 02-01-2024 End: 02-01-2024 Bamboo flowsheet Yves Coffey MD Work Phone: [facility] Start: 02-01-2024 End: 02-01-2024 Coryo anjel Coffey MD Work Phone: [facility] Start: 02-01-2024 Non-patient / Non-visit Randy Calle DO Work Phone: [facility] Amb[facility] Work Phone: Start: 01-27-2024 Non-patient / Non-visit Randy Halllong DO Work Phone: [facility] Work Phone: Start: 01-27-2024 End: 01-27-2024 Jossue Coffey MD Work Phone: [facility] Start: 01-27-2024 End: 01-27-2024 Bamkomalo anjel Coffey MD Work Phone: [facility] Start: 01-27-2024 End: 01-27-2024 ambulatory YVES COFFEY Not Available Start: 01-26-2024 End: 01-27-2024 Patient encounter procedure Yves Coffey MD Work Phone: [facility] Comment on above: Anaphylaxis, subsequ ent encounter (Primary Dx) Start: 01-25-2024 End: 01-25-2024 Jossue Coffey MD Work Phone: [facility] Start: 01-25-2024 End: 01-25-2024 Bamkomalo anjel Coffey MD Work Phone: [facility] Start: 01-25-2024 End: 01-25-2024 Office outpatient new 60 minutes Yves Coffey MD Work Phone: [facility] Comment on above: Adverse effect of do xycycline, initial encounter (Primary Dx) Start: 01-25-2024 End: 01-25-2024 ambulatory YVES COFFEY Not Available Start: 01-19-2024 Non-patient / Non-visit Randy Furlong DO Work Phone: [facility] Work Phone: Start: 01-15-2024 End: 01-15-2024 ambulatory [facility] ANUSHA [facility] Start: 01-15-2024 End: 01-15-2024 ambulatory [facility]MAN [facility] Start: 01-14-2024 Non-patient / Non-visit Randy Furlong DO Work Phone: [facility] Work Phone: Start: 01-13-2024 Non-patient / Non-visit Randy Furlong DO Work Phone: [facility] Work Phone: Start: 12-30-2023 End: [...] 12-30-2023 End: 12-30-2023 ambulatory SCOTT [facility] Start: 12-29-2023 Non-patient / Non-visit Randy Furlong DO Work Phone: [facility] Work Phone: Start: 12-29-2023 Registered Recurring DO Randy Furlong [facility]: [facility] Work Phone: Start: 12-29-2023 End: 12-29-2023 ambulatory DO Randy Calle Work Phone: [facility] Work Phone: Start: 12-29-2023 End: 12-29-2023 [facility] encounter [facility]: [facility] Amb[facility] Work Phone: Start: 12-29-2023 End: 12-29-2023 ambulatory [facility] Start: 12-29-2023 End: 12-29-2023 Postop follow up visit related to original px Shereen Smallwood PA-C Work Phone: [facility] Comment on above: Infection of deep in cisional surgical site after procedure, subsequent encounter (Primary Dx); Malignant neoplasm of lower-inner quadrant of right breast of female, estrogen receptor positive ([facility]-HCC) Start: 12-28-2023 End: 12-28-2023 Emergency department patient visit Rusty Horton [facility] Start: 12-21-2023 End: 12-21-2023 ambulatory [facility] Start: 12-21-2023 End: 12-21-2023 Postop follow up visit related to original px Marisela Cuevas WEB DEVELOPMENT INSTRUCTOR-DIAL SCREW ASSEMBLER Work Phone: [facility] Comment on above: Encounter for postop erative care (Primary Dx); Acquired absence of breast, bilateral; S/P breast reconstruction, bilateral Start: 12-16-2023 End: 12-16-2023 Telephone encounter Deborah SUN [facility] Start: 12-14-2023 End: 12-14-2023 Postop follow up visit related to original px Marisela Cuevas WEB DEVELOPMENT INSTRUCTOR-DIAL SCREW ASSEMBLER Work Phone: [facility] Comment on above: Encounter for postop erative care (Primary Dx); Acquired absence of breast, bilateral; S/P breast reconstruction, bilateral; Infection of breast implant, subsequent encounter Malignant neoplasm o f lower-inner quadrant of right breast of female, estrogen receptor positive ([facility]-H[facility]) (Primary Dx) Start: 12-14-2023 End: 12-14-2023 ambulatory SUZETTE BANUELOSClaire [facility] Start: 12-11-2023 End: 12-14-2023 Telephone encounter Mela Berrios RN [facility] Comment on above: Transition Of Care Start: 12-11-2023 End: 12-11-2023 ambulatory [facility] Start: 12-09-2023 End: 12-09-2023 Telephone encounter Nabila Mora CMA [facility] Start: 12-08-2023 End: 12-08-2023 Orders Only Gino Flower WEB DEVELOPMENT INSTRUCTOR-DIAL SCREW ASSEMBLER Work Phone: [facility] Comment on above: Acid fast bacillus ( Primary Dx); 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 Start: 12-05-2023 End: 12-09-2023 Evaluation and management of inpatient [facility] Start: 12-04-2023 End: 12-09-2023 Evaluation and management of inpatient [facility] Start: 12-03-2023 End: 12-03-2023 Orders Only Gino Flower WEB DEVELOPMENT INSTRUCTOR-DIAL SCREW ASSEMBLER Work Phone: [facility] Comment on above: Acid fast bacillus ( Primary Dx) Start: 12-02-2023 End: 12-09-2023 Evaluation and management of inpatient Kayleigh Hartley DO Work Phone: [facility] - 7 Oncology/Stroke Comment on above: MIRNA (acute kidney in jury) ([facility]) (Primary Dx); Infection of deep incisional surgical site after procedure, initial encounter; 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; Infection of deep incisional surgical site after procedure, subsequent encounter Start: 12-02-2023 End: 12-02-2023 Documentation procedure Gino Flower WEB DEVELOPMENT INSTRUCTOR-DIAL SCREW ASSEMBLER Work Phone: [facility] Start: 12-02-2023 End: 12-02-2023 Telephone encounter Elisa Vallejo RN [facility] Comment on above: Transition Of Care Fever Start: 12-02-2023 End: 12-02-2023 ambulatory JHON GROSS [facility] Start: 12-02-2023 End: 12-02-2023 Postop follow up visit related to original px Jhon Gross MD Work Phone: [facility] Comment on above: Encounter for postop erative care (Primary Dx); Acquired absence of breast, bilateral; S/P breast reconstruction, bilateral; Infection of breast implant, subsequent encounter Start: 12-01-2023 End: 12-01-2023 [facility]ulatory [facility]: [facility] Work Phone: Start: 12-01-2023 End: 12-01-2023 Patient encounter procedure DO [facility] Work [facility] Work Phone: Start: 11-30-2023 End: 11-30-2023 ambulatory [facility] Start: 11-28-2023 End: 11-28-2023 Telephone encounter Concha Mcgregor [place] [facility] Comment on above: Medication Reaction Start: 11-26-2023 End: 11-30-2023 ambulatory RICHIE HANNA [facility] Start: 11-26-2023 End: 11-26-2023 Postop follow up visit related to original px Jhon Gross MD Work Phone: [facility] Comment on above: Cellulitis of left b reast (Primary Dx); S/P breast reconstruction, bilateral Start: 11-26-2023 End: 11-26-2023 ambulatory JHON GROSS [facility] Start: 11-25-2023 End: 11-25-2023 ambulatory RICHIE HANNA [facility] Start: 11-25-2023 End: 11-25-2023 Postop follow up visit related to original px Marisela Cuevas WEB DEVELOPMENT INSTRUCTOR-DIAL SCREW ASSEMBLER Work Phone: [facility] Comment on above: Encounter for postop erative care (Primary Dx); Acquired absence of breast, bilateral Start: 11-25-2023 End: 11-25-2023 [facility] Start: 11-18-2023 End: 11-18-2023 Postop follow up visit related to original px Marisela Cuevas WEB DEVELOPMENT INSTRUCTOR-DIAL SCREW ASSEMBLER Work Phone: [facility] Comment on above: Encounter for postop erative care (Primary Dx); Malignant neoplasm of lower-inner quadrant of right breast of female, estrogen receptor positive (CMS-HCC); Acquired absence of breast, bilateral; S/P breast reconstruction, bilateral Start: 11-18-2023 End: 11-18-2023 [facility] Start: 11-11-2023 End: 11-11-2023 Postop follow up visit related to original px Marisela Cuevas WEB DEVELOPMENT INSTRUCTOR-DIAL SCREW ASSEMBLER Work Phone: [facility] Comment on above: Encounter for postop erative care (Primary Dx); S/P breast reconstruction, bilateral; Malignant neoplasm of lower-inner quadrant of right breast of female, estrogen receptor positive (CMS-HCC); Acquired absence of breast, bilateral Start: 11-11-2023 End: 11-11-2023 [facility] Start: 11-04-2023 End: 11-04-2023 Postop follow up visit related to original px Marisela Cuevas WEB DEVELOPMENT INSTRUCTOR-DIAL SCREW ASSEMBLER Work Phone: [facility] Comment on above: Encounter for postop erative care (Primary Dx); Malignant neoplasm of lower-inner quadrant of right breast of female, estrogen receptor positive (CMS-HCC); Acquired absence of breast, bilateral; S/P breast reconstruction, bilateral Start: 11-04-2023 End: 11-04-2023 ambulatory MARISELA CUEVAS [facility] Start: 10-23-2023 End: 10-23-2023 Social Work Valentinealin Goldberg [facility] Start: 10-20-2023 End: 10-20-2023 [facility] Start: 10-16-2023 End: 10-16-2023 [facility] Start: 10-14-2023 End: 10-16-2023 [facility] Start: 10-01-2023 End: 10-01-2023 ambulatory DO Randy Furlong Work Phone: [facility] Work Phone: Start: 10-01-2023 End: 10-01-2023 Patient encounter procedure DO Randy Furlong Work Phone: [facility] Work Phone: Start: 10-01-2023 Registered Recurring DO Randy Furlong Work Phone: [facility] Work Phone: Start: 09-29-2023 End: 09-29-2023 Social Work [facility] Start: 09-28-2023 End: 10-07-2023 Telephone encounter Richie Hanna WEB DEVELOPMENT INSTRUCTOR-DIAL SCREW ASSEMBLER Work Phone: [facility] Start: 09-14-2023 End: 09-15-2023 Refill Richie Hanna WEB DEVELOPMENT INSTRUCTOR-DIAL SCREW ASSEMBLER Work Phone: [facility] Start: 08-20-2023 End: 08-27-2023 Social Work [facility] [facility] Start: 08-20-2023 End: 08-20-2023 Office outpatient new 45 minutes Jhon Gross MD Work Phone: [facility] Comment on above: Malignant neoplasm o f lower-inner quadrant of right breast of female, estrogen receptor positive (CMS-HCC) Start: 08-06-2023 End: 08-06-2023 Social Work [facility] Radiation Oncology Start: 08-03-2023 End: 08-03-2023 Social Work [facility] Radiation Oncology Start: 07-30-2023 End: 07-30-2023 Office outpatient visit 40 minutes Christy He MD Work Phone: [facility] Comment on above: Malignant neoplasm o f lower-inner quadrant of right breast of female, estrogen receptor positive (CMS-HCC) (Primary Dx) Start: 06-04-2023 End: 06-04-2023 ambulatory Sandrita WILLETT Facility:[facility] Start: 06-04-2023 End: 06-04-2023 Patient encounter procedure Sandrita WILLETT [facility] General Surgery [employer] Start: 05-26-2023 Patient encounter procedure Georgiana Justice DO Work Phone: [facility] Start: 05-26-2023 ambulatory Rusty Horton Facility: [facility] Start: 05-21-2023 Admission to [facility] Yue Tellez WEB DEVELOPMENT INSTRUCTOR-DIAL SCREW ASSEMBLER Work Phone: [facility] Start: 05-21-2023 ambulatory Yue huggins WEB DEVELOPMENT INSTRUCTOR-DIAL SCREW ASSEMBLER Work Phone: [facility] Start: 05-14-2023 Telephone encounter Niurka Stockton RN [facility] [place] [facility] Start: 05-12-2023 Telephone encounter Ike Irvin RN [facility] [place] [facility] Start: 05-08-2023 Documentation procedure Niurka dorman RN [facility] [place] [facility] Start: 04-28-2023 End: 04-28-2023 Office outpatient new 60 minutes Christy He MD Work Phone: [facility] Comment on above: Malignant neoplasm o f lower-inner quadrant of right breast of female, estrogen receptor positive (CMS-HCC) (Primary Dx); Mass of lower inner quadrant of right breast Start: 04-14-2023 End: 04-14-2023 ambulatory [facility] Start: 04-10-2023 End: 04-10-2023 Patient encounter procedure Sandrita WILLETT General Surgery [facility] [place] Start: 04-06-2023 End: 04-06-2023 Patient encounter procedure Chantal Bear [facility] Start: 04-02-2023 End: 04-02-2023 Office outpatient visit 15 minutes Evan Thompson DO Work Phone: [facility] OB Comment on above: Mammogram abnormal; Invasive ductal carcinoma of breast, right (CMS/HCC) Start: 03-26-2023 End: 03-26-2023 ambulatory DO Randy Furalannang Work Phone: [facility] Work Phone: Start: 03-26-2023 End: 03-26-2023 Departed Referred DO Randy Furlong Work Phone: [facility] Start: 03-20-2023 End: 03-20-2023 Patient encounter procedure BRITTANI SANTOS [facility] Start: 10-15-2022 Chart Update Randy stewart Work Phone: [facility] DO Work Phone: Start: 10-14-2022 ambulatory BRITTANI SANTOS [facility] ty:[id number] Start: 09-29-2022 Patient encounter procedure Randy Calle Work Phone: [facility] 250 DO Work Phone: Start: 09-29-2022 ambulatory Ms. Brittani Santos Facility: Start: 09-12-[address] Shanon Tyler II Facility: Start: 09-12-2022 Office outpatient vi sit 5 minutes Randy Calle Work Phone: [facility] 250 DO Work Phone: Start: 08-22-[address] Shanon Tyler II Facility: Start: 08-22-2022 Office outpatient vi sit 5 minutes Randy Calle Work Phone: [facility] 250 DO Work Phone: Start: 08-18-2022 Chart Update Randy stewart Work Phone: [facility] 250 DO Work Phone: Start: 08-15-2022 End: 08-15-2022 Patient encounter procedure Shanon Tyler [facility] Start: 07-21-[address] Shanon Tyler II Facility: Start: 07-14-2022 End: 07-14-2022 Patient encounter procedure Reid Bauer [facility] Start: 12-27-2021 End: 12-27-[address] DAYANA BASHIR Facility:[facility] Start: 12-13-2021 End: 12-14-[address] KAYE MANUEL Facility: Start: 11-22-2021 End: 11-22-2021 ambulatory Hua Kraus [place] Facility:[facility] Start: 11-11-2021 End: 11-11-2021 ambulatory Jesusita Gee Other [employer] Other Start: 11-11-2021 Office outpatient vi sit 15 minutes Jesusita Gee [facility] Start: 08-26-2021 End: 08-28-2021 ambulatory [facility] Facility:[facility] Start: 08-22-2021 End: 08-22-2021 ambulatory [facility] Facility:[facility] Start: 08-13-2021 End: 08-13-2021 ambulatory [facility] Facility:[facility] Start: 01-21-2021 End: 01-21-2021 ambulatory [facility] Facility:[facility] Start: 01-04-2021 End: 01-05-2021 ambulatory [facility] Facility: [facility] Procedures Date Procedure [...] dip stick/tabl et rgnt non-auto w/o micrscp Evandiandra Morao DO Work Phone: Start: 06-01-2024 IGP,APTIMA HPV,AGE GDLN Evan Jay DO Work Phone: Start: 04-28-2024 Follow-up visit Follow-up NAIMA GROSS Start: 04-13-2024 AUDITORY FUNCTION TESTS Nasreen Li [facility] Work Phone: Start: 04-07-2024 ALL CBC WITH AUTO DIFF Evandiandra Thompson DO Work Phone: Start: 03-30-2024 Adult depression screening assessment Marisela Cuevas WEB DEVELOPMENT INSTRUCTOR-DIAL SCREW ASSEMBLER Work Phone: Start: 12-09-2023 Comprehensive metabo lic panel Chris Hollis PA-C Work Phone: Start: 12-08-2023 Potassium serum plasma/whole blood Amy Singh MD Work Phone: Start: 12-08-2023 Assay of magnesium Amy dennison MD Work Phone: Start: 12-08-2023 Comprehensive metabo lic panel Chris Hollis PA-C Work Phone: Start: 12-07-2023 Comprehensive metabo lic panel Chris Hollis PA-C Work Phone: Start: 12-06-2023 Assay of magnesium Radha Valle WEB DEVELOPMENT INSTRUCTOR-DIAL SCREW ASSEMBLER Work Phone: Start: 12-06-2023 Urnls dip stick/tabl et rgnt auto w/o microscopy Liliane Valle WEB DEVELOPMENT INSTRUCTOR-DIAL SCREW ASSEMBLER Work Phone: Start: 12-06-2023 Comprehensive metabo lic panel Chris BURRISC Work Phone: Start: 12-05-2023 Assay of magnesium Radha Valle WEB DEVELOPMENT INSTRUCTOR-DIAL SCREW ASSEMBLER Work Phone: Start: 12-05-2023 Radiologic exam ches t single view Liliane Valle WEB DEVELOPMENT INSTRUCTOR-DIAL SCREW ASSEMBLER Work Phone: Start: 12-05-2023 RESP PATHOGENS PANEL/SARS-COV-2 Liliane Valle WEB DEVELOPMENT INSTRUCTOR-DIAL SCREW ASSEMBLER Work Phone: Start: 12-05-2023 End: 12-05-2023 Culture [...] Phone: Start: 12-03-2023 Assay of urine sodium Radha Henry MD Work Phone: Start: 12-03-2023 Urnls dip stick/tabl et rgnt auto w/o microscopy Epifanio Henry MD Work Phone: Start: 12-03-2023 Antinuclear antibodi es justin Epifanio Henry MD Work Phone: Start: 12-03-2023 Creatine kinase total R shena Henry MD Work Phone: Start: 12-03-2023 Assay of magnesium Radha Valle WEB DEVELOPMENT INSTRUCTOR-DIAL SCREW ASSEMBLER Work Phone: Start: 12-03-2023 Ecg routine ecg [...] 12-02-2023 End: 12-02-2023 Comprehensive metabolic panel Kayleigh Hartely DO Work Phone: Start: 10-16-2023 Mammography Georgiana [...] Start: 03-02-2005 Hysterectomy Reid mcfarland Abdominal hysterectomy Raleigh Clarke Biopsy of breast Sandrita Thomas Chondrectomy of semi lunar cartilage of knee Moghazala Bear Core needle biopsy o f breast using ultrasound guidance Moghazala Bear Excision of breast Rusty mcgowan Excisional biopsy of breast Randy Calle Work Phone: Hysterectomy Randy jaramillo Work Phone: Insertion of implant able venous access port Sandrita WILLETT Lipoma of back (disorder) Edie Bauer Repair of anterior cruciate ligament of knee joint Moghazala Bear [facility] Transurethral cystoscopy Hay[facility] Chema NEGATED: Highlighted row has not occurred! Total colonoscopy Randy Calle Work Phone: Plan of Treatment Date Care Activity Detail Author Start: 05-31-2028 Screening for malignant neoplasm of cervix [facility] Start: 09-02-2027 Diabetes Screening Diabetes Screening [facility] Start: 07-08-2027 DTaP,Tdap and Td Vaccines (2 - Td or Tdap) DTaP,Tdap and Td Vaccines (2 - Td or Tdap) [facility] Start: 07-08-2027 Urine microalbumin profile DTaP,Tdap,Td Vaccine (2 - Td or Tdap) [facility] Start: 06-16-2027 Diabetes Screening Diabetes Screening [facility] Start: 01-31-2027 Lipid panel Lipid Screening [facility] Start: 12-27-2026 Screening for malignant neoplasm of cervix [facility] Start: 10-26-2025 Tobacco Screening Tobacco Screening [facility] Start: 10-12-2025 Adult BMI Screening Adult BMI Screening [facility] Start: 10-12-2025 Tobacco Screening [facility]ening [facility] Start: 10-05-2025 Tobacco Screening [...] Office Visit [facility] [address] [place] [address] Evan Thompson, DO [address] [place] [address] [facility] Start: 06-08-2025 Tobacco Screening [...] tem Start: 12-13-2024 Tobacco Screening [facility] Start: 12-04-2024 Adult BMI Screening Adult BMI Screening [facility] Start: 12-02-2024 Adult BMI Screening Adult BMI Screening [facility] Start: 12-01-2024 Adult BMI Screening Adult BMI Screening [facility] Start: 12-01-2024 End: 12-01-2024 Follow-up encounter 12/01/2024 2:00 PM EDT [facility] [place] [address] [place] [address] Josue Mccain DO, PhD [address] [facility] [address] [place] [address] Established patient Visit with Dr. Mccain for MRI review and follow up [facility] Comment on above: Established patient Visit with Dr. Timothy kemp for MRI review and follow up Start: 12-01-2024 Tobacco Screening Tobacco Screening [facility] Start: 11-29-2024 End: 11-29-2024 Patient encounter procedure 11/29/2024 10:20 AM EDT Appointment [facility] [place] [address] [place] [address] With Perfusion [facility] Radiology MRI Comment on above: With Perfusion Start: 11-27-2024 Adult BMI Screening Adult BMI Screening [facility] Start: 11-26-2024 Tobacco Screening [facility] Start: 11-16-2024 End: 11-16-2024 Patient encounter procedure 11/16/2024 1:30 PM EDT Office Visit [facility] [address] [place] [address] Marisela Cuevas, WEB DEVELOPMENT INSTRUCTOR-DIAL SCREW ASSEMBLER [address] [place] [address] [facility] Start: 11-15-2024 End: 11-15-2024 Patient encounter procedure Radiology MRI Comment on above: MRI With Perfusion New patient Visit [facility] for MRI review and follow up Start: 10-31-2024 COVID-19 Vaccine ( season) COVID-19 Vaccine ( season) [facility] Start: 10-31-2024 Influenza vaccination [facility] Start: 10-27-2024 Adult BMI Screening Adult BMI Screening [facility] Start: 10-27-2024 Tobacco Screening Tobacco Screening [facility] Start: 10-26-2024 End: 10-26-2024 Patient encounter procedure 10/26/2024 1:30 PM EDT Office Visit [facility] [address] [facility] [address] [place] [phone] Marisela Cuevas, WEB DEVELOPMENT INSTRUCTOR-[facility] [address], [facility] [address] [place] [phone] [facility] Start: 10-26-2024 End: 10-26-2024 Telephone encounter 10/26/2024 8:30 AM EDT Telephone Visit [facility], A Department of [place] [address] [facility] [address] [place] [phone] Raymond Sepulveda MD [address] [facility] [place] [address] [facility], A Department of [facility] Start: 10-15-2024 Adult BMI Screening Adult BMI Screening [facility] Start: 10-15-2024 Screening for malignant neoplasm of breast [facility] Start: 10-15-2024 Tobacco Screening Tobacco Screening [facility] Start: 10-12-2024 End: 10-12-2024 Admission to same day surgery center 10/12/2024 5:00 PM EDT - 10/12/2024 6:15 PM EDT Surgery [facility] - Surgery [address] [place] [address] Jhon Gross MD [address] [facility] [address] DEBRIDEMENT BREAST [facility] Surgery Comment on above: DEBRIDEMENT BREAST Start: 10-12-2024 End: 10-12-2024 DEBRIDEMENT BREAST DEBRIDEMENT BREAST BREAST WOUND LEFT 10/12/2024 5:00 PM EDT [facility] Start: 10-12-2024 Subsequent hospital visit by physician 10/12/2024 5:00 PM EDT Hospital Encounter [facility] Surgery [address] [place] [address] Jhon Gross MD [address], [facility] [address] [place] [address] [facility] Start: 2024 End: 2024 Admission to establishment 2024 2:15 PM EDT Support Visit [facility] Pre-Admission Clinic On [address] [address] [facility] Pre[facility]Admission [facility] On [facility] Start: 10-05-2024 End: 10-05-2024 Patient encounter procedure 10/05/2024 1:30 PM EDT Office Visit [facility] [address] [facility] [address] [facility] [place] [phone] Marisela Cuevas, WEB DEVELOPMENT INSTRUCTOR-DIAL SCREW ASSEMBLER [address] [facility] [place] [phone] [facility] Start: 09-22-2024 End: 09-22-2024 Patient encounter procedure 09/22/2024 3:15 PM EDT Office Visit [facility] [address] [place] [address] Jhon Gross MD [address], [facility] [address] [place] [address] [facility] Start: 09-16-2024 End: 09-16-2024 Patient encounter procedure 09/16/2024 11:20 AM EDT Office Visit Plastic Surgery [address] [address] Geno Pierce WEB DEVELOPMENT INSTRUCTOR.DIAL SCREW ASSEMBLER [address] [place] [address] POST OP Plastic Surgery Comment on above: POST OP Start: 09-16-2024 End: 09-16-2024 ambulatory 09/16/2024 7:30 AM EDT Visit (SP) Office Hematology/Oncology [address] [place] [address] Alessandra Syed APRN.DIAL SCREW ASSEMBLER [address] [place] [address] HOSP DC Hematology/Oncology Comment on above: HOSP DC Start: 09-08-2024 End: 09-08-2024 Patient encounter procedure 09/08/2024 9:45 AM EDT Office Visit [facility] [address] [facility] [address] [place] [address] Shereen Smallwood PA-C [address], [facility] [address] [place] [address] [facility] Start: 09-07-2024 End: 09-07-2024 Admission to same day surgery center 09/07/2024 4:30 PM EDT - 09/07/2024 6:00 PM EDT Surgery Anesthesia [address] [address] Josue Mccain DO, PhD [address] [employer] [address] [place] [address] STEREOTACTIC RADIOSURGERY 1 COMPLEX CRANIAL LESION Anesthesia Comment on above: STEREOTACTIC RADIOSURGERY 1 COMPLEX CRAN IAL LESION Start: 09-07-2024 End: 09-07-2024 Radiation delivery stereotactic cranial cobalt RADIATION TX STEREOTACTIC RADIOSURGERY (SRS) TX CRANIAL LESION(S) 1 SESSION MULTI-SOURCE COBALT Secondary malignant neoplasm of brain (HCC) 09/07/2024 4:30 PM EDT ANESTHESIA ONLY Start: 09-07-2024 End: 09-07-2024 Stereotactic radiosurgery 1 complex cranial les STEREOTACTIC RADIOSURGERY 1 COMPLEX CRANIAL LESION Secondary malignant neoplasm of brain (HCC) 09/07/2024 4:30 PM EDT ANESTHESIA ONLY Start: 09-07-2024 Subsequent hospital visit by physician 09/07/2024 4:30 PM EDT Hospital Encounter Anesthesia [address] [address] Josue Mccain DO, PhD [address] [employer] [address] [place] [address] 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] Anesthesia Comment on above: Secondary malignant neoplasm of brain (H CC) [C79.31] Start: 09-07-2024 Subsequent hospital visit by physician 09/07/2024 8:20 AM EDT Hospital Encounter Radiology [address] [place] [address] 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] Radiology Comment on above: Secondary malignant neoplasm of brain (H CC) [C79.31] Start: 09-07-2024 End: 09-07-2024 Patient encounter procedure Radiation Oncology Comment on above: GS/ESM SIM MRI CT dotd-esm out GS/ESM SIM@ MRI@ CT mask Cpt 19864 GS/ESM dotd-esm out Start: 09-03-2024 Adult BMI Screening Adult BMI Screening [facility] Start: 08-29-2024 End: 08-29-2024 Patient encounter procedure 08/29/2024 9:30 AM EDT [facility] [place] [address] Shereen Smallwood PA-C [address], [facility] [address] [facility] [place] [address] [facility] Start: 08-19-2024 Adult BMI Screening Adult BMI Screening [facility] Start: 08-19-2024 Tobacco Screening Tobacco Screening [facility] Start: 08-19-2024 End: 08-19-2024 Patient encounter procedure 08/19/2024 10:00 AM EDT Office Visit [facility] [address] [facility] [address] [place] [address] Shereen Smallwood PA-C [address], [facility] [address] [place] [address] [facility] Start: 08-12-2024 End: 08-12-2024 Admission to same day surgery center 08/12/2024 8:00 AM EDT - 08/12/2024 9:30 AM EDT Surgery [facility] Surgery [address] [place] [address] Jhon Gross MD [address], [facility] [address] [place] [address] DEBRIDEMENT BREAST- AXILLA [facility] - Surgery Comment on above: DEBRIDEMENT BREAST- AXILLA Start: 08-12-2024 End: 08-12-2024 Anesthesia consultation 08/12/2024 8:00 AM EDT Anesthesia Event [facility] Surgery [address] [place] [address] Rusty Gipson SRNA [facility] - Surgery Start: 08-12-2024 End: 08-12-2024 DEBRIDEMENT BREAST DEBRIDEMENT BREAST LEFT AXILLA WOUND 08/12/2024 8:00 AM EDT [facility] Start: 08-12-2024 Subsequent hospital visit by physician 08/12/2024 8:00 AM EDT Hospital Encounter [facility] - Surgery [address] [place] [address] Jhon Gross MD [address], [address] [place] [address] [facility] - Surgery Start: 08-10-2024 End: 08-10-2024 Patient encounter procedure 08/10/2024 3:30 PM EDT [facility] Family Medicine [address] [place] [address] Dhruv White, [address] [place] [address] [facility] - [facility] Start: 08-10-2024 End: 08-10-2024 Admission to establishment 08/10/2024 10:00 AM EDT Support Visit [facility] Pre-Admission Clinic On [address] [address] [facility] Pre-Admission Clinic On [facility] Start: 08-08-2024 End: 08-08-2024 Patient encounter procedure 08/08/2024 9:00 AM EDT Office Visit [facility] [address] [place] [address] Shereen Smallwood PA-C [address] [place] [address] [facility] Start: 07-29-2024 Adult BMI Screening Adult BMI Screening [facility] Start: 07-29-2024 Tobacco Screening Tobacco Screening [facility] Start: 07-27-2024 End: 07-27-2024 Admission to same day surgery center 07/27/2024 2:45 PM EDT - 07/27/2024 4:15 PM EDT Surgery [facility] Surgery [address] [place] [address] Jhon Gross MD [address], [address] [place] [address] DEBRIDEMENT BREAST [facility] - Surgery Comment on above: DEBRIDEMENT BREAST Start: 07-27-2024 End: 07-27-2024 DEBRIDEMENT BREAST [facility] tem Start: 07-27-2024 Subsequent hospital visit by physician 07/27/2024 2:45 PM EDT Hospital Encounter [facility] Surgery [address] [place] [address] Jhon Gross MD [address], [facility] [address] [place] [address] [facility] - Surgery Start: 07-27-2024 End: 07-27-2024 Telephone encounter 07/27/2024 8:30 AM EDT Telephone Visit [facility], A Department of [place] [address] [facility] [address] [place] [address] Raymond Sepulveda MD [address] [facility] [facility] [place] [address] [facility], A Department of [facility] Start: 07-21-2024 End: 07-21-2024 Admission to same day surgery center 07/21/2024 12:30 PM EDT - 07/21/2024 2:00 PM EDT Surgery [facility] [address] [place] [address] Jhon Gross MD [address], [address] [place] [address] DEBRIDEMENT BREAST [facility] Surgery Comment on above: DEBRIDEMENT BREAST Start: 07-21-2024 End: 07-21-2024 DEBRIDEMENT BREAST DEBRIDEMENT BREAST LEFT BREAST WOUND 07/21/2024 12:30 PM EDT [facility] Start: 07-21-2024 Subsequent hospital visit by physician 07/21/2024 12:30 PM EDT Hospital Encounter [facility] [address] [place] [address] Jhon Gross MD [address], [facility] [address] [facility] [place] [address] [facility] Start: 07-20-2024 End: 07-20-2024 Patient encounter procedure 07/20/2024 10:30 AM EDT Office Visit [facility] [address] [facility] [address] [place] [address] Marisela Cuevas, WEB DEVELOPMENT INSTRUCTOR-[facility] [address], [address] [facility] [place] [address] [facility] Start: 07-19-2024 End: 07-19-2024 Admission to same day surgery center 07/19/2024 4:15 PM EDT - 07/19/2024 5:45 PM EDT Surgery [facility] [address] [place] [phone] Jhon Gross MD [address] [place] [address] DEBRIDEMENT BREAST [facility] Comment on above: DEBRIDEMENT BREAST Start: 07-19-2024 End: 07-19-2024 DEBRIDEMENT BREAST DEBRIDEMENT BREAST LEFT BREAST WOUND 07/19/2024 4:15 PM EDT [facility] Start: 07-19-2024 Subsequent hospital visit by physician 07/19/2024 4:15 PM EDT Hospital Encounter [facility] Surgery [address] [place] [address] Jhon Gross MD [address], [address] [place] [address] [facility] Start: 07-19-2024 End: 07-19-2024 Patient encounter procedure 07/19/2024 8:00 AM EDT Office Visit Infectious Disease [address] [place], [place] [phone] Krystin Barragan MD [address] [place] [address] 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 Start: 07-15-2024 End: 07-15-2024 Admission to establishment 07/15/2024 9:00 AM EDT Support Visit [facility] Pre-Admission Clinic On [address] [address] [facility] On [facility] Start: 07-14-2024 End: 07-14-2024 Patient encounter procedure 07/14/2024 8:40 AM EDT Office Visit [facility] - Family Medicine [address] [place] [phone] Richie aHnna, WEB DEVELOPMENT INSTRUCTOR-DIAL SCREW ASSEMBLER [address] [place] [address] [facility] Start: 07-12-2024 End: 07-12-2024 ambulatory 07/12/2024 2:00 PM EDT Visit (SP) Office Hematology/Oncology [address] [place] [address] [place] [address] [place] [address] breast ca Hematology/Oncology Comment on above: breast ca Start: 07-11-2024 End: 07-11-2024 Patient encounter procedure [facility] Start: 07-06-2024 End: 07-06-2024 Patient encounter procedure [facility] Start: 06-29-2024 End: 06-29-2024 Patient encounter procedure 06/29/2024 2:00 PM EDT Office Visit [facility] [address] [facility] [address] [place] [address] Marisela Cuevas, WEB DEVELOPMENT INSTRUCTOR-DIAL SCREW ASSEMBLER [address] [place] [address] [facility] Start: 06-29-2024 End: 06-29-2024 Telemedicine consultation with patient 06/29/2024 8:30 AM EDT Telemedicine [facility], A Department of [facility] [address] [facility] [address] [place] [address] Raymond Sepulveda MD [address] [facility], [address] [place] [address] [facility], A Department of [facility] Start: 06-14-2024 End: 06-14-2024 Patient encounter procedure 06/14/2024 1:30 PM EDT Office Visit [facility] [address] [facility] [address] [place] [address] Marisela Cuevas, WEB DEVELOPMENT INSTRUCTOR-DIAL SCREW ASSEMBLER [address], [address] [facility] [place] [address] [facility] Start: 06-13-2024 End: 06-13-2024 INCISION DRAINAGE CHEST INCISION DRAINAGE CHEST L Chest wall wound 06/13/2024 5:19 PM EDT [facility] Start: 06-08-2024 End: 06-08-2024 Patient encounter procedure [facility] - Medical Oncology Start: 06-08-2024 End: 06-08-2024 Telephone encounter 06/08/2024 8:30 AM EDT Telephone Visit [facility], A Department of [facility] [address] [place] [address] [place] [address] [place] [address], [address] [place], [place] [phone] [facility], A Department of [facility] Start: 06-06-2024 Screening for malignant neoplasm of colon [facility] Start: 06-01-2024 End: 06-01-2025 DXA Skeletal system Views for bone density DEXA bone density Imaging Routine Postmenopausal state Expected: 06/01/2024 (Approximate), Expires: 06/01/2025 [facility] Work Phone: Comment on above: Expected: 06/01/2024 (Approximate), Expi res: 06/01/2025 Start: 06-01-2024 End: 06-01-2024 Patient encounter procedure [facility] Start: 05-26-2024 End: 05-26-2024 Admission to same day surgery center 05/26/2024 10:15 AM EDT - 05/26/2024 12:45 PM EDT Surgery [facility] - Surgery [address] [place] [address] [place] [address] [place] [address], [address] [place] [address] DAVINCI EXCISION LYMPH NODE ABDOMINAL REGION(EXCISION PELVIC MASS) [97678 (CPT )] [facility] Comment on above: DAVINCI EXCISION LYMPH NODE ABDOMINAL RE GION(EXCISION PELVIC MASS) [85915 (CPT )] Start: 05-26-2024 Subsequent hospital visit by physician 05/26/2024 10:15 AM EDT Hospital Encounter [address] [phone] Raymond Sepulveda MD [address] [place] [address], [address] [place] [address] [facility] Start: 05-26-2024 End: 05-26-2024 Unlisted laparoscopic px abd pertoneum & omentum DAVINCI EXCISION LYMPH NODE ABDOMINAL REGION PELVIC MASS LEFT SIDED 05/26/2024 10:15 AM EDT [facility] Start: 05-12-2024 End: 05-12-2024 Admission to establishment 05/12/2024 2:45 PM EDT [facility] On [address] [address] [facility] Start: 05-12-2024 End: 05-12-2024 Evaluation and management of inpatient 05/12/2024 2:45 PM EDT Support Visit [facility] On [address] [address] [facility] Start: 05-05-2024 Adult BMI Screening Adult BMI Screening [facility] Start: 05-02-2024 End: 05-02-2024 Rmvl henry ctr vad w/subq port/author's agent ctr/prph insj [facility] Start: 04-28-2024 End: 04-28-2024 Patient encounter procedure 04/28/2024 3:15 PM EST Office Visit [facility] [address] [place] [address] Jhon Gross MD [address] [place] [address] [facility] Start: 04-28-2024 Tobacco Screening Tobacco Screening [facility] Start: 04-21-2024 End: 04-21-2024 Patient encounter procedure 04/21/2024 11:30 AM EST Office Visit [facility] [address] [place] [address] Evan Thompson DO [address] [place] [address] [facility] Start: 04-20-2024 End: 04-20-2024 Patient encounter procedure 04/20/2024 1:00 PM EST Office Visit [facility] [address] [place] [address] Marisela Cuevas, WEB DEVELOPMENT INSTRUCTOR-DIAL SCREW ASSEMBLER [address] [place] [address] [facility] Start: 04-15-2024 End: 04-15-2024 Patient encounter procedure 04/15/2024 11:30 AM EST Office Visit [facility] [address] [place] [address] Marisela Cuevas, WEB DEVELOPMENT INSTRUCTOR-DIAL SCREW ASSEMBLER [address] [place] [address] [facility] Start: 03-21-2024 End: 03-21-2024 Admission to same day surgery center 03/21/2024 3:30 PM EST - 03/21/2024 5:15 PM EST Surgery [facility] Surgery [address] [place] [address] Jhon Gross MD [address] [place] [address] EXCISION SOFT TISSUE BREAST - EXC REDUNDANT CHEST WALL TISSUE [81655 (CPT )] [facility] Comment on above: EXCISION SOFT TISSUE BREAST - EXC REDUND ANT CHEST WALL TISSUE [60669 (CPT )] Start: 03-21-2024 End: 03-21-2024 Excision excessive skin & subq tissue other area EXCISION SOFT TISSUE BREAST LT CHEST WOUND 03/21/2024 3:30 PM EST [facility] Start: 03-21-2024 End: 03-21-2024 Removal tiss equine science instructor w/o insertion prosthesis REMOVAL RN CRITICAL CARE TISSUE BREAST LT CHEST WOUND 03/21/2024 3:30 PM EST [facility] Start: 03-21-2024 Subsequent hospital visit by physician 03/21/2024 3:30 PM EST Hospital Encounter [facility] [address] [place] [phone] Jhon Gross MD [address] [facility] [place] [address] [facility] Surgery Start: 03-15-2024 End: 03-15-2024 Patient encounter procedure [facility] Start: 03-04-2024 End: 03-04-2024 Patient encounter procedure 03/04/2024 10:30 AM EST Office Visit [facility] [address] [facility] [place] [address] Shereen Smallwood PANicolasC [address], [facility] [address] [place] [address] [facility] Start: 03-03-2024 End: 03-03-2024 Patient encounter procedure 03/03/2024 12:30 PM EST Office Visit [facility] [address] [facility] [address] [place] [address] Jhon Gross MD [address], [facility] [address] [facility] [place] [address] [facility] Start: 02-26-2024 End: 02-26-2024 Admission to same day surgery center 02/26/2024 11:30 AM EST - 02/26/2024 1:00 PM EST Surgery [facility] Surgery [address] [place] [address] Jhon Gross MD [address], [facility] [address] [place] [address] INCISION DRAINAGE BREAST (WASHOUT) [facility] Surgery Comment on above: INCISION DRAINAGE BREAST (WASHOUT) Start: 02-26-2024 End: 02-26-2024 CLOSURE WOUND MIDSECTION CLOSURE WOUND MIDSECTION LEFT BREAST WOUND 02/26/2024 11:30 AM EST [facility] Start: 02-26-2024 End: 02-26-2024 INCISION DRAINAGE BREAST INCISION DRAINAGE BREAST LEFT BREAST WOUND 02/26/2024 11:30 AM EST [facility] Start: 02-26-2024 Subsequent hospital visit by physician 02/26/2024 11:30 AM EST Hospital Encounter [facility] Surgery [address] [place] [address] Jhon Grsos MD [address] [place] [address] [facility] - Surgery Start: 02-15-2024 End: 02-15-2024 Patient encounter procedure [facility] Comment on above: Arrived Start: 01-25-2024 End: 01-25-2024 Patient encounter procedure 01/25/2024 10:00 AM EST Office Visit [facility] [address] [place] [phone] Yves Coffey MD [address] [place] [address] Arrived [facility] Comment on above: Arrived Start: 12-21-2023 End: 12-21-2023 Patient encounter procedure 12/21/2023 1:30 PM EDT Office Visit [facility] [address] [place] [address] Marisela Cuevas, WEB DEVELOPMENT INSTRUCTOR-DIAL SCREW ASSEMBLER [address] [place] [address] [facility] Start: 12-15-2023 End: 12-15-2023 Patient encounter procedure 12/15/2023 10:30 AM EDT Office Visit [facility] [address] [place] [address] Marisela Cuevas, WEB DEVELOPMENT INSTRUCTOR-DIAL SCREW ASSEMBLER [address] [place] [address] [facility] Start: 12-14-2023 End: 12-14-2023 Patient encounter procedure 12/14/2023 2:00 PM EDT Office Visit [facility] [address] [facility] [place] [address] Suzette Mason PA [address], [address] [place] [address] [facility] Start: 12-08-2023 End: 12-08-2023 Patient encounter procedure [facility] Start: 12-04-2023 End: 12-04-2023 Patient encounter procedure 12/04/2023 11:00 AM EDT Office Visit [facility] [address] [place] [address] Marisela Cuevas, WEB DEVELOPMENT INSTRUCTOR-DIAL SCREW ASSEMBLER [address], [address] [place] [address] [facility] Start: 12-01-2023 Patient referral [facility] Work Phone: Start: 11-26-2023 End: 11-26-2023 Patient encounter procedure 11/26/2023 11:45 AM EDT Office Visit [facility] [address] [place] [address] Jhon Gross MD [address], [address] [place] [address] [facility] Start: 11-25-2023 End: 11-25-2023 Patient encounter procedure 11/25/2023 3:00 PM EDT Office Visit [facility] [address] [place] [address] Marisela Cuevas, WEB DEVELOPMENT INSTRUCTOR-DIAL SCREW ASSEMBLER [address], [address] [place] [address] [facility] Start: 11-18-2023 End: 11-18-2023 Patient encounter procedure 11/18/2023 11:30 AM EDT Office Visit [facility] [address] [place] [address] Marisela Cuevas, WEB DEVELOPMENT INSTRUCTORDIAL SCREW ASSEMBLER [address] [place] [address] [facility] Start: 11-11-2023 End: 11-11-2023 Patient encounter procedure 11/11/2023 1:30 PM EDT Office Visit [facility] [address] [place] [address] Marisela Cuevas, WEB DEVELOPMENT INSTRUCTOR-DIAL SCREW ASSEMBLER [address] [place] [address] [facility] Start: 11-04-2023 End: 11-04-2023 Patient encounter procedure 11/04/2023 11:00 AM EDT Office Visit [facility] [address] [place] [address] Marisela Cuevas, WEB DEVELOPMENT INSTRUCTORDIAL SCREW ASSEMBLER [address] [place] [address] [facility] Start: 11-01-2023 Covid-19 Vaccine ( season) Covid-19 Vaccine ( season) [facility] Start: 11-01-2023 Covid-19 Vaccine ( season) Covid-19 Vaccine ( season) [facility] Start: 11-01-2023 COVID-19 Vaccine ( season) COVID-19 Vaccine () [facility] Start: 11-01-2023 COVID-19 Vaccine ( season) COVID-19 Vaccine ( season) [facility] Start: 11-01-2023 Influenza vaccination [facility] Healthcare Start: 10-28-2023 End: 10-28-2023 Adjnt tis trnsfr/reargmt any area 30.1-60 sq cm [facility] Start: 10-28-2023 End: 10-28-2023 Admission to same day surgery center 10/28/2023 7:30 AM EDT - 10/28/2023 11:30 AM EDT Surgery [facility] - Surgery [address] [place] [address] [place] [address] [place] [phone] MASTECTOMY BREAST SIMPLE SKIN SPARING [facility] - Surgery Comment on above: MASTECTOMY BREAST SIMPLE SKIN SPARING Start: 10-28-2023 End: 10-28-2023 Brst rcnstj immt/dlyd w/tiss equine science instructor sbsq xpnsj EXCHANGE RN CRITICAL CARE TISSUE BREAST INVASIVE CARCINOMA RIGHT DESIRE FOR CONTRALATERAL RISK REDUCTION 10/28/2023 7:30 AM EDT [facility] Start: 10-28-2023 End: 10-28-2023 EXCISION LYMPH NODE AXILLARY EXCISION LYMPH NODE AXILLARY INVASIVE CARCINOMA RIGHT DESIRE FOR CONTRALATERAL RISK REDUCTION 10/28/2023 7:30 AM EDT [facility] Start: 10-28-2023 End: 10-28-2023 MAGNETIC SEED LOCALIZATION EXCISION/BIOPSY MASS BREAST MAGNETIC SEED LOCALIZATION EXCISION/BIOPSY MASS BREAST INVASIVE CARCINOMA RIGHT DESIRE FOR CONTRALATERAL RISK REDUCTION 10/28/2023 7:30 AM EDT [facility] Start: 10-28-2023 End: 10-28-2023 MASTECTOMY BREAST SIMPLE MASTECTOMY BREAST SIMPLE INVASIVE CARCINOMA RIGHT DESIRE FOR CONTRALATERAL RISK REDUCTION 10/28/2023 7:30 AM EDT [facility] Start: 10-28-2023 End: 10-28-2023 Mastectomy simple complete MASTECTOMY BREAST SIMPLE RISK REDUCING INVASIVE CARCINOMA RIGHT DESIRE FOR CONTRALATERAL RISK REDUCTION 10/28/2023 7:30 AM EDT [facility] Start: 10-28-2023 Subsequent hospital visit by physician 10/28/2023 7:30 AM EDT Hospital Encounter [facility] - Surgery [address] [place] [address] Christy He MD [address] [facility], [facility] [address] [place] [address] [facility] - Surgery Start: 10-16-2023 Subsequent hospital visit by physician 10/16/2023 2:00 PM EDT Hospital Encounter [facility] [place] - [facility]ound [address] [place] [phone] [facility] Enriquez[facility] [place] [facility] Start: 10-16-2023 End: 10-16-2023 Patient encounter procedure 10/16/2023 11:00 AM EDT Procedure visit [facility] On [address] [address] [facility] Start: 09-04-2023 Subsequent hospital visit by physician 09/04/2023 12:45 PM EDT Hospital Encounter [facility] En[facility] [place] - MRI [address] [place] [phone] [facility] Starr Bejarano [place] - MRI Start: 08-30-2023 End: 07-29-2024 MR Breast - bilateral WO and W contrast IV MR bilateral breast with and without contrast with CAD Imaging Routine Malignant neoplasm of lower-inner quadrant of right breast of female, estrogen receptor positive ([facility]) Expected: 08/30/2023 (Approximate), Expires: 07/29/2024 [facility] Work Phone: Comment on above: Expected: 08/30/2023 (Approximate), Expi res: 07/29/2024 Start: 08-20-2023 End: 08-20-2023 Patient encounter procedure 08/20/2023 10:00 AM EDT Office Visit [facility] [address] [facility] [address] [place] [address] Jhon Gross MD [address] [facility], [facility] [address] [place] [address] [facility] Start: 07-30-2023 End: 07-30-2023 Patient encounter procedure 07/30/2023 3:00 PM EDT Office Visit [facility] [address] [facility] [address] [place] [address] Christy He MD [address] [facility] [address] [place] [address] [facility] Start: 06-01-2023 End: 06-01-2023 Patient encounter procedure 06/01/2023 1:30 PM EDT Office Visit [facility] BCP OB [address] [place] [address] Evan Thompson, DO [address] [place] [address] [facility] Start: 04-08-2023 FUV, Provider: Shanon Tyler, Status: Pen, Time: 2:50 PM FUV, Provider: Shanon Tyler, Status: Pen, Time: 2:50 PM [place] [address] DO Work Phone: Start: 03-07-2023 Depression Screening Depression Screening [facility] Start: 12-27-2022 Screening for malignant neoplasm of breast Mammogram [facility] Start: 10-31-2022 COVID-19 Vaccine ( season) COVID-19 Vaccine ( season) [facility] Start: 10-31-2022 Influenza vaccination [facility] Start: 09-29-2022 FUV, Provider: Brittani Avalos, Status: Pen, Time: 2:30 PM FUV, Provider: Brittani Avalos, Status: Pen, Time: 2:30 PM -[facility] 250 DO Work Phone: Start: 09-18-2022 FUV, Provider: Shanon Tyler, Status: Pen, Time: 9:10 AM FUV, Provider: Shanon Tyler, Status: Pen, Time: 9:10 AM -[facility] 250 DO Work Phone: Start: 09-12-2022 BPCHESERG, Provider: ASHLEIGH MURGUIA MANUFACTURING PLANT MANAGER 1,[id number], Status: Pen, Time: 9:00 AM BPCHECK, Provider: ASHLEIGH MURGUIA MANUFACTURING PLANT MANAGER 1,[id number], Status: Pen, Time: 9:00 AM -[facility] 250 DO Work Phone: Start: 08-22-2022 BPLM, Provider: ASHLEIGH MURGUIA MANUFACTURING PLANT MANAGER 1,[id number], Status: Pen, Time: 9:00 AM BPCHE, Provider: ASHLEIGH MURGUIA MANUFACTURING PLANT MANAGER 1,[id number], Status: Pen, Time: 9:00 AM -[facility] 250 DO Work Phone: Start: 01-03-2021 Covid-19 Vaccine (3 - Mixed Product risk series) Covid-19 Vaccine (3 - Mixed Product risk series) [facility] Start: 2020 Pneumococcal Vaccine: 50+ (1 of 1 - PCV) Pneumococcal Vaccine: 50+ (1 of 1 - PCV) [facility] Start: 2020 Shingrix Vaccine (1 of 2) Shingrix Vaccine (1 of 2) [facility] Start: 10-11-2015 Screening for malignant neoplasm of colon [facility] Start: 2000 Screening for malignant neoplasm of cervix [facility] Start: 10-11-1991 Screening for malignant neoplasm of cervix [facility] Start: 1989 Administration of varicella zoster vaccine Zoster (Shingles) Vaccine (1 of 2) [facility] Start: 1989 Hepatitis B Vaccine (1 of 3 - 19+ 3-dose series) Hepatitis B Vaccine (1 of 3 - 19+ 3-dose series) [facility] Start: 1989 Pneumococcal Vaccine: 50+ (1 of 2 - PCV) Pneumococcal Vaccine: 50+ (1 of 2 - PCV) [facility] Start: 1989 Shingrix Vaccine (1 of 2) Shingrix Vaccine (1 of 2) [facility] Start: 1988 Adult BMI Follow Up Plan Adult BMI Follow Up Plan [facility] Start: 1988 Annual PCP Team Chronic Disease Visit Annual PCP Team Chronic Disease Visit [facility] Start: 1988 Anxiety Screening Anxiety Screening [facility] Start: 1988 Depression Screening Depression Screening [facility] Start: 1988 Hepatitis C screening Hepatitis C Screening [facility] Start: 1988 HIV screening HIV Screening [facility] Start: 1981 Screening for malignant neoplasm of cervix Cervical Cancer Screening [facility] Start: 1970 Screening for malignant neoplasm of colon [facility] End: 11-24-2024 Aspirate culture includes gram stain Aspirate culture includes gram stain Microbiology Routine Encounter for postoperative care Acquired absence of breast, bilateral 1 Occurrences starting 11/25/2023 until 11/24/2024 [place] [facility] Work Phone: Comment on above: 1 Occurrences starting 11/25/2023 until 11/24/2024 Bacteria identified in Aspirate by Aerobe culture Aspirate culture includes gram stain Microbiology Routine Encounter for postoperative care Acquired absence of breast, bilateral 11/25/2023 6:05 PM EDT [facility] Bacteria identified in Blood by Aerobe culture [place] [facility] Work Phone: End: 12-08-2024 CBC W Auto Differential panel - Blood CBC auto differential Lab Routine Infection of deep incisional surgical site after procedure, initial encounter Infection of deep incisional surgical site after procedure, subsequent encounter weekly for 4 Occurrences starting 12/09/2023 until 12/08/2024 [place] [facility] Work Phone: Comment on above: weekly for 4 Occurrences starting 2023 until 12/08/2024 End: 12-08-2024 Comprehensive metabolic 2000 panel - Serum or Plasma Comprehensive metabolic panel Lab Routine Infection of deep incisional surgical site after procedure, initial encounter Infection of deep incisional surgical site after procedure, subsequent encounter weekly for 4 Occurrences starting 12/09/2023 until 12/08/2024 [facility] Comment on above: weekly for 4 Occurrences starting 2023 until 12/08/2024 Computed tomography for radiotherapy planning [facility] CT with contrast for radiotherapy planning [facility] Patient referral [facility] Work Phone: THIN PREP TIS PAP AN D HR HPV DNA THIN PREP TIS PAP AND HR HPV DNA Pathology and Cytology Routine Well woman exam with routine gynecological exam Ordered: 06/01/2024 [facility] Comment on above: Ordered: 06/01/2024 Immunizations Immunization Date Immunization Notes Care Provider Fa cili 12-06-2020 Covid-19, Mrna, Lnp-s, Pf, 30 Mcg/0.3 Ml Dose, Winston-sucrose Niurka Stockton RN [facility] 12-06-2020 SARS-CoV-2 (COVID-19 ) mRNA [id number] vax Reid Bauer [facility] Comment on above: Result Comment: 2022: [id number] 12-06-2020 SARS-COV-2 (COVID-19 ) Vaccine, Unspecified Niurka Stockton RN [facility] 11-15-2020 SARS-CoV-2 (COVID-19 ) mRNA BNT-162b2 vax Reid Bauer [facility] Comment on above: Result Comment: 2022: [id number] 11-20-2019 influenza virus vaccine, unspecified formulation Reid Bauer [facility] Suzanne 11-14-2019 influenza virus vaccine, unspecified formulation Reid Bauer [facility] 11-14-2019 influenza, seasonal, injectable Randy Calle Work Phone: [facility] 250 DO Work Phone: 12-13-2018 influenza virus vaccine, unspecified formulation Reid Bauer [facility] 12-13-2018 influenza, seasonal, injectable Randy Jaramillo Furlong Work Phone: [facility] 250 DO Work Phone: 12-10-2017 influenza virus vaccine, unspecified formulation Reid Bauer [facility] 12-10-2017 influenza, injectable, quadrivalent, contains preservative Randy G Furlong Work Phone: [place] [address] DO Work Phone: 07-07-2017 tetanus toxoid, reduced diphtheria toxoid, and acellular pertussis vaccine, adsorbed Reid Bauer [facility] 01-19-2017 influenza virus vaccine, unspecified formulation Reid Bauer [facility] 01-19-2017 influenza, injectable, quadrivalent, contains preservative Randy G Furlong Work Phone: [place] [address] DO Work Phone: 01-07-2016 influenza virus vaccine, unspecified formulation Reid Bauer [facility] 01-07-2016 influenza, injectable, quadrivalent, contains preservative Randy G Furlong Work Phone: [facility] 250 DO Work Phone: 12-01-2015 influenza nasal, unspecified formulation [address] 12-01-2015 influenza virus vaccine, unspecified formulation Randy G Furlong Work Phone: [facility] [employer] DO Work Phone: 12-01-2015 influenza, unspecified formulation Reid Bauer [facility] 12-27-2014 influenza virus vaccine, unspecified formulation Reid Bauer [facility] 12-27-2014 influenza, injectable, quadrivalent, contains preservative Randy G Furlong Work Phone: [facility] [employer] DO Work Phone: 12-06-2014 influenza, seasonal, injectable Niurka Stockton RN [facility] 01-05-2014 influenza virus vaccine, unspecified formulation Reid Bauer [facility] 01-05-2014 influenza, injectable, quadrivalent, contains preservative Randy G Furlong Work Phone: [facility] [employer] DO Work Phone: 12-29-2012 influenza virus vaccine, unspecified formulation Reid Bauer [facility] 12-29-2012 influenza, seasonal, injectable Randy G Furlong Work Phone: [facility] [employer] DO Work Phone: 01-17-2009 novel [id number], preservative-free, injectable Randy G Furlong Work Phone: [facility] [employer] DO Work Phone: NEGATED: Highlighted row has not occurred!04-10-2023 influenza virus vaccine, unspecified formulation Sandrita RODRIGUEZWilliam [facility] [place] Payers Date Payer Category Payer Self-pay [id number] 05-01-2023 Medicaid HMO [facility] MEDICAID [id number] 05-01-2023 Private Health Insurance [id number] 03-02-2023 Medicaid [id number]. 1.13.693. [id number] 03-02-2023 Private Health Insurance [id number] 03-02-2016 Unknown [id number] 1970 Unknown [id number] 2.16840.1.885127.3.579. 2. 1970 Unknown [id number] .840.1.306020.3.579. 2. 1970 Unknown [id number] 2.16840.1.549435.3.579. 2. 1970 Unknown [id number] 2.16840.1.010306.3.579. 2. 1970 Unknown [id number] 2.16840.1.879166.3.579. 2. 1970 Unknown [id number] 2.16840.1.265913.3.579. 2. 1970 Unknown [id number] 2.16840.1.930538.3.579. 2. 1970 Unknown [id number] 2.16840.1.665888.3.579. 2. 1970 Unknown [id number] 2.16.840.1.858438.3.579. 2.593 1970 Unknown [id number] 2.16.840.1.824283.3.579. 2.356 1970 Unknown [id number] 2.16.840.1.135886.3.579. 2.356 1970 Unknown [id number] 2.16.840.1.932898.3.579. 2.356 1970 Unknown [id number] 2.16.840.1.018336.3.579. 2.356 1970 Unknown [id number] 2.16.840.1.413498.3.579. 2.1068 1970 Unknown [id number] 2.16.840.1.927986.3.579. 2.1244 1970 Unknown [id number] 2.16.840.1.558792.3.579. 2.727 1970 Unknown [id number] 2.16.840.1.656544.3.579. 2.727 1970 Unknown [id number] 2.16.840.1.679292.3.579. 2.727 1970 Unknown [id number] 2.16.840.1.758129.3.579. 2.727 1970 Unknown [id number] 2.16.840.1.947366.3.579. 2.727 1970 Unknown [id number] 2.16.840.1.346934.3.579. 2.727 1970 Unknown [id number] 2.16.840.1.779079.3.579. 2.727 1970 Unknown [id number] 2.16.840.1.147523.3.579. 2.1259 1970 Unknown [id number] 2.16.840.1.292018.3.579. 2.1259 1970 Unknown [id number] 2.16.840.1.088027.3.579. 2.9 1970 Unknown [id number] 2.16.840.1.259344.3.579. 2.1258 1970 Unknown [id number] 2.16.840.1.005513.3.579. 2.1258 1970 Unknown [id number] 2.16.840.1.752973.3.579. 2.1258 1970 Unknown [id number] 2.16.840.1.139869.3.579. 2.1258 1970 Unknown [id number] 2.16.840.1.778540.3.579. 2.1258 1970 Unknown [id number] 2.16.840.1.675006.3.579. 2.1258 1970 Unknown [id number] 2.16.840.1.172921.3.579. 2.1285 1970 Unknown [id number] 2.16.840.1.442194.3.579. 2.1285 1970 Unknown [id number] 2.16.840.1.015923.3.579. 2.1285 1970 Unknown [id number] 2.16.840.1.376948.3.579. 2.1285 1970 Unknown [id number] 2.16.840.1.799041.3.579. 2.1285 1970 Unknown [id number] 2.16.840.1.445327.3.579. 2.1285 1970 Unknown [id number] 2.16.840.1.400927.3.579. 2.1285 1970 Unknown [id number] 2.16.840.1.321984.3.579. 2.1285 1970 Unknown [id number] 2.16.840.1.291965.3.579. 2.128 1970 Unknown [id number] 2.840.1.219981.3.579. 2.1285 1970 Unknown [id number] 2.840.1.698824.3.579. 2.1285 1970 Unknown [id number] 2.840.1.378786.3.579. 2.1285 1970 Unknown [id number] 2.840.1.107435.3.579. 2.1285 1970 Unknown [id number] 2.840.1.845429.3.579. 2.1285 1970 Unknown [id number] .840.1.607731.3.579. 2.1285 1970 Unknown [id number] 2840.1.079810.3.579. 2.1285 1970 Unknown [id number] 2.840.1.079920.3.579. 2.1285 1970 Unknown [id number] 2.0.1.637473.3.579. 2.1285 1970 Unknown [id number] .840.1.629799.3.579. 2.1285 1970 Unknown [id number] 840.1.703969.3.579. 2.1285 1970 Unknown [id number] 840.1.203605.3.579. 2.1285 1970 Unknown [id number] 840.1.102860.3.579. 2.1285 1970 Unknown [id number] .840.1.688210.3.579. 2.1285 1970 Unknown [id number] 2840.1.056664.3.579. 2.1285 1970 Unknown [id number] 840.1.400405.3.579. 2.1285 1970 Unknown [id number] 2.16.840.1.258518.3.579. 2.1285 1970 Unknown [id number] 2.16.840.1.143080.3.579. 2.1285 1970 Unknown [id number] 2..840.1.831039.3.579. 2.1285 1970 Unknown [id number] 2.16.840.1.218062.3.579. 2.1285 1970 Unknown [id number] 2.840.1.850877.3.579. 2.1285 1970 Unknown [id number] 2.840.1.470878.3.579. 2.1285 1970 Unknown [id number] 2.840.1.992074.3.579. 2.1285 1970 Unknown [id number] 2.840.1.409103.3.579. 2.1285 1970 Unknown [id number] 2.840.1.813268.3.579. 2.1285 1970 Unknown [id number] 2.840.1.758721.3.579. 2.1285 1970 Unknown [id number] 2.840.1.848510.3.579. 2.1285 1970 Unknown [id number] 2.840.1.669356.3.579. 2.1285 1970 Unknown [id number] 2.840.1.800496.3.579. 2.1285 1970 Unknown [id number] 2.840.1.418468.3.579. 2.1285 1970 Unknown [id number] 2.840.1.032129.3.579. 2.1285 1970 Unknown [id number] 2.16.840.1.375846.3.579. 2.128 1970 Unknown [id number] 2.16.840.1.354137.3.579. 2.128 1970 Unknown [id number] 2.16.840.1.748863.3.579. 2.1285 1970 Unknown [id number] 2.16.840.1.472813.3.579. 2.128 1970 Unknown [id number] 2.16.840.1.640755.3.579. 2.128 1970 Unknown [id number] 2.16.840.1.111287.3.579. 2.1285 1970 Unknown [id number] 2.16840.1.596279.3.579. 2.1285 1970 Unknown [id number] 2.840.1.814741.3.579. 2.1285 1970 Unknown [id number] 2.16840.1.375317.3.579. 2.128 1970 Unknown [id number] 2.16.840.1.190726.3.579. 2.1285 1970 Unknown [id number] 2.16.840.1.749663.3.579. 2.1285 1970 Unknown [id number] 2..840.1.475229.3.579. 2.128 1970 Unknown [id number] 2.16.840.1.725572.3.579. 2.128 1970 Unknown [id number] 2.16.840.1.094791.3.579. 2.1285 1970 Unknown [id number] 2.16.840.1.183035.3.579. 2.128 1970 Unknown [id number] 2.16.840.1.296920.3.579. 2.12808 07-11-1971 Unknown [id number] 2.16.840.1.443846.3.579. 2.1285 1970 Unknown [id number] 2.16.840.1.760898.3.579. 2.1285 1970 Unknown [id number] 2.16.840.1.369472.3.579. 2.1285 1970 Unknown [id number] 2.16.840.1.888712.3.579. 2.1285 1970 Unknown [id number] 2.16.840.1.150841.3.579. 2.1285 1970 Unknown [id number] 2.16.840.1.954452.3.579. 2.1285 1970 Unknown [id number] 2.840.1.531859.3.579. 2.1285 1970 Unknown [id number] 2.840.1.792068.3.579. 2.1285 1970 Unknown [id number] 2.840.1.636217.3.579. 2.1285 1970 Unknown [id number] 2.840.1.414296.3.579. 2.1285 1970 Unknown [id number] 2.840.1.613350.3.579. 2.1285 1970 Unknown [id number] 2.840.1.861871.3.579. 2.1285 1970 Unknown [id number] 2.840.1.040819.3.579. 2.1285 1970 Unknown [id number] 2.16840.1.652064.3.579. 2.12803-02-1959 Private Health Insurance [id number] 2.840.1.859807.19 Unknown Unknown [id number] Unknown Insurance No Card [id number] Unknown [id number] 2.16.840.1.807561.3.579. 2.531 Unknown [id number] 2.16.840.1.975647.3.579. 2.531 Unknown [id number] 2.16.840.1.207933.3.579. 2.531 Unknown [id number] 2.16.840.1.141262.3.579. 2.531 Unknown [id number] 2.16.840.1.005987.3.579. 2.531 Social History Date Type Detail Facility Unknown if ever smoked [facility] Other Start: 02-27-2022 End: 01-04-2023 Sex Assigned At [facility] Start: 07-14-2022 End: 03-18-2024 Tobacco smoking status Never smoked tobacco (finding) [facility] Start: 12-02-2023 Tobacco smoking status Never [facility] Start: 02-27-2022 End: 01-04-2023 Social alcohol use Social alcohol use [facility] Start: 1970 Sex Assigned At Female [facility] Start: 04-02-2023 End: 06-01-2024 Alcohol intake Lifetime non-drinker (finding) [facility] Start: 01-04-2023 Alcohol Comment Caffeine intak e: 1-2 cups per day [facility] Start: 1970 Sex Assigned At Not on file [facility] Start: 01-25-2024 End: 03-18-2024 Tobacco use and exposure Smokeless tobacco non-user [facility] Start: 12-14-2023 End: 08-03-2024 Alcoholic beverage intake Current drinker of alcohol (finding) [facility] Has the [employer], [employer], or water [employer] threatened to shut off services in your home in past 12Mo No [facility] Do you belong to any clubs or organizations such as buddhist groups, unions, fraternal or athletic groups, or school groups? Yes [facility] Are you now , , , , never or living with a partner? [facility] How often to you hav e a drink containing alcohol? 2-3 time sa week [facility] How many standard drinks containing alcohol do you have on a typical day? 1 or 2 [facility] How often do you hav e 6 or more drinks on 1 occasion? Less than monthly [facility] Do you feel stress - tense, restless, nervous, or anxious, or unable to sleep at night because your mind is troubled all the time - these days [OSQ] To some extent [facility] Start: 02-27-2022 Education 21 [facility] Start: 10-16-2023 Alcohol Comment Socially [facility] Start: 10-05-2014 End: 06-06-2024 Sex Female (finding) [facility] History of tobacco use Passive smoker [facility] Sexual Orientation [facility] Tobacco smoking stat [facility] Tobacco smoking consumption unknown [facility] Work Phone: Start: 07-19-2024 End: 10-26-2024 Alcoholic beverage intake Ex-drinker (finding) [facility] Start: 07-19-2024 Alcohol Comment Occasional wine [facility] (I/We) worried wheth er (my/our) food would run out before (I/we) got money to buy more. Never true [facility] NEGATED: Highlighted rowStart: NINF History of tobacco use Passive smoker [facility] Medical Equipment Procedure Code Equipment Code Equipment Origin al Text Equipment Identifier Dates Grading Clerk Tiss [id number] Brst 480-575cc Txtr Intgr Port Allox2 - [id number] - [id number] Start: 10-28-2023 Grading Clerk Tiss [id number] Brst 480-575cc Txtr Intgr Port Allox2 - [id number] - [id number] Start: 10-28-2023 Goals Date Patient Goal [...] up [facility] Personal health goal Personal health goal Personal health goal Functional Status Date Assessment Result Facility 05-22-2024 Functional Status N/A [facility] 05-03-2024 Humiliation, Afraid, Rape, and Kick questionnaire [HARK] [facility] 12-28-2023 Functional Status N/A [facility] 04-10-2023 Functional Status N/A [facility]uk[facility] Palacios 07-14-2022 Functional Status N/A [facility] Clinical Notes 01-18-2021 to 11-03-2024 Telephone Encounter - Shanice Johnson RN - 11/01/2024 9:24 AM EDTTelephone Encounter - Shanice Johnson RN - 11/01/2024 9:24 AM Maggi Cuevas APRN-ESPERANZA - 10/26/2024 1:30 PM EDT Note Date & Type Note Facility 11-03-[address] 1.55 a little hig her than her baseline [facility] 11-01-2024 Miscellaneous Notes Received call from Jared in microbiology. Patient has +AFB tissue culture: 10/12/2024 CULTURE RESULTS NO GROWTH 3 DAYS CULTURE RESULTS NO GROWTH 5 DAYS CULTURE RESULTS Mycobacterium abscessus ! (P) GRAM STAIN 0 White Blood Cells/LPF GRAM STAIN 0 Squamous Epithelial Cells/LPF GRAM STAIN No organisms seen Legend: ! Abnormal (P) Preliminary documented in this encounter [facility] 11-01-2024 Telephone encounter Note Received call from Jared in microbiology. Patient has +AFB tissue culture: 10/12/2024 CULTURE RESULTS NO GROWTH 3 DAYS CULTURE RESULTS NO GROWTH 5 DAYS CULTURE RESULTS Mycobacterium abscessus ! (P) GRAM STAIN 0 White Blood Cells/LPF GRAM STAIN 0 Squamous Epithelial Cells/LPF GRAM STAIN No organisms seen Legend: ! Abnormal (P) Preliminary [facility] 10-26-2024 History of Present illness Narrative [facility] [address] Office Jhon Gross MD, PhD INÉS King PA-C Erin A Schroeder, WEB DEVELOPMENT INSTRUCTOR-DIAL SCREW ASSEMBLER Plastic Surgery Progress Note Reason for visit : post-op History of present illness: Ike Flannery is a 54 y.o. female with a history of ight breast cancer status post bilateral skin sparing mastectomies (He) and tissue equine science instructor reconstruction in 10/28/2023. Her postoperative course was complicated by an infected seroma of her left breast requiring operative washout and tissue equine science instructor removal 11/27/23. Intraoperative cultures demonstrated growth of [...] this note were generated using voice recognition [employer] dictation software. Although every effort was made to ensure the accuracy of this automated mft, some errors in mft may have occurred. AMEENA Kennedy 10/26/24 1448 documented in this encounter [facility] 10-26-2024 History of Present illness Narrative This [...] the medical record. documented in this encounter [employer] [facility] 10-19-2024 Note Clearing IV amikacin appropriately, trough less than 0.8 [facility] 10-19-2024 Note Reviewed slight incr ease in Cr. Will monitor [facility] 10-18-2024 Note Division of Infectio us Diseases [...] well s/p gamma knife radiation 08/2024 at [facility] Here to discuss clofazamine, has been approved by IRB, FDA and [employer]. Consent signed and reviewed with Avi Tobar [facility], patient and myself. Updated Consent reviewed and [...] drain. Pembrolizumab stopped. 09/13 Follow up with [facility] again for additional gamma knife, she was found to have brain mets from her breast cancer. Right breast tissue equine science instructor was removed for Brain MRI at [facility]. Last culture from 08/12 AFB is positive, though she has had good wound healing since her last debridement and has not required any further wound debridement. She will continue to follow with here in [place]. Xeloda is Presently on hold. 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 Additional Isolate has been sent to [facility] lab of and for additional synergy [...] Subjective History of Present Illness: She was [facility] from 05/02/2024 to 05/13/2024. I had discussed with patient's plastic surgeon Dr. Gross that I was concerned about her left chest port and her continuing wound from the left breast area. After her appointment with me patient had sent in pictures of the wound dehiscing. I forwarded these pictures and my concerns to Dr. Gross's office who promp (more content not included)... [facility] 10-17-2024 Note Theraputic amikacin level [facility] 10-12-2024 Note Reviewed, amikacin p eak within goal range [facility] 2024 Instructions Formatting of th is note might be different from the original. Your surgery/procedure is scheduled at [facility] on October 12 2024 at 5;00 pm Arrival Time 3:00 pm [facility] Address: [address] [place] [address], [address] Park in the Emergency Center Parking lot. Report to the motel front desk attendant in the Emergency/Surgery Registration lobby of the hospital. Notify your SURGEON if you develop any illness such as a cold, cough, fever, sore throat, vomiting or are hospitalized between now and your surgery. Please call Pre-Admission Clinic at [phone] if you have any questions prior to surgery. For questions the morning of surgery, call the Pre-op Department at [phone]. Medication Instructions (Do not stop your medications [...] piercings, hair extensions that contain metal, nail fijian, make-up, and contact lens. You may brush [...] pets in your bed. Please be advised, [facility] has transitioned to a cashless payment [...] RIGHTS AND RESPONSIBILITIES As a patient at [facility], you have the right to: Receive medical care and be informed of who is taking care of you Be treated with dignity and respect Have a family member/u.s. representative of choice and your physician notified [...] of hospital charges and payment methods Patient/patient u.s. representative responsibilities are to: Provide information about health status to facilitate care, treatment and services Follow the treatment, plan, keep appointments and speak up when you do not understand the plan Respect the rights of other patients and healthcare personnel Follow organizational rules and regulations that support quality care and a safe environment Fulfill financial obligations as promptly as possible [facility] 2024 Miscellaneous Notes Your surgery/procedure is scheduled at [facility] on October 12 2024 at 5;00 pm Arrival Time 3:00 pm [facility] Address: [address] [place] [address], [facility], [facility] Park in the Emergency Center Parking lot. Report to the motel front desk attendant in the Emergency/Surgery Registration lobby of the hospital. Notify your SURGEON if you develop any illness such as a cold, cough, fever, sore throat, vomiting or are hospitalized between now and your surgery. Please call Pre-Admission Clinic at [phone] if you have any questions prior to surgery. For questions the morning of surgery, call the Pre-op Department at [phone]. Medication Instructions (Do not stop your medications [...] piercings, hair extensions that contain metal, nail fijian, make-up, and contact lens. You may brush [...] in your bed. Please be advised, [facility] has transitioned to a cashless payment system. [...] RIGHTS AND RESPONSIBILITIES As a patient at [facility], you have the right to: Receive medical care and be informed of who is taking care of you Be treated with dignity and respect Have a family member/u.s. representative of choice and your physician notified [...] of hospital charges and payment methods Patient/patient u.s. representative responsibilities are to: Provide information about [...] promptly as possible documented in this encounter [facility] 10-07-2024 Note HNO ID: [id number] Author: JOSUE MCCAIN DO, PhD Service: ? Author Type: Physician Type: Progress Notes Filed: 10/07/2024 15:37 Note Text: [facility] [address] [place] [address] [place] OPERATIVE REPORT NAME: Ike Flannery [facility] NO.: [id number] MASK SIMULATION DATE: 2024-10-07 RADIATION TREATMENT START [...] were loaded in the planning computer and [employer] gamma plan was used to perform fractionated [...] Number of Fractions: 1 After the usual vice president quality procedures were performed, fractionated radiosurgery was delivered with use of the Gamma Knife. The Gamma Knife checklists and time outs were performed during this procedure in a standard manner. Josue Mccain DO, PhD [facility] 10-07-2024 Miscellaneous Notes Spoke to pt Surgery is scheduled 10/12 at . Per Bill arrive at 12pm. NPO 8hrs prior. She spoke with Dr. Gregory office and was told to hold her xeloda and eliquis. documented in this encounter [facility] 10-07-2024 Telephone encounter Note Spoke to pt Surgery is scheduled 10/12 at . Per Bill arrive at 12pm. NPO 8hrs prior. She spoke with Dr. Gregory office and was told to hold her xeloda and eliquis. [facility] 10-07-2024 History of Present illness Narrative [...] PATIENT PRESENTS WITH AN IMPLANTABLE OR ATTACHED MVA OPERATOR: No RADIOLOGY DEPARTMENT: CT; Exam(s) Completed: Brain PERIPHERAL IV DATA: Not applicable SIGNED BY: RT Ivan(R) October 07, 2024 8:47 AM documented in this encounter [facility] 10-07-2024 Note HNO ID: [id number] Author: CORRINA GRIDER RT(R) Service: ? Author [...] PATIENT PRESENTS WITH AN IMPLANTABLE OR ATTACHED MVA OPERATOR: No RADIOLOGY DEPARTMENT: CT; Exam(s) Completed: Brain PERIPHERAL IV DATA: Not applicable SIGNED BY: PATSY Love) October 07, 2024 8:47 AM [facility] 10-07-2024 History of Present illness [...] PATIENT PRESENTS WITH AN IMPLANTABLE OR ATTACHED MVA OPERATOR: No RADIOLOGY DEPARTMENT: MR; Exam(s) Completed: Head: Localization. Aromatherapy Administered: No PERIPHERAL IV DATA: Site assessment: Clean,Dry and Intact, Site disposition Discontinued SIGNED BY: RT Taniya(R) October 07, 2024 8:06 AM documented in this encounter [facility] 10-07-2024 Note HNO ID: [id number] Author: GALO ALLEN RN Service: Radiology Author [...] DATE: October 07, 2024 TIME: 7:38 AM [facility] 10-07-2024 Note HNO ID: [id number] Author: CORRY BEAL RT(R) Service: Radiology Author [...] PATIENT PRESENTS WITH AN IMPLANTABLE OR ATTACHED MVA OPERATOR: No RADIOLOGY DEPARTMENT: MR; Exam(s) Completed: Head: Localization. Aromatherapy Administered: No PERIPHERAL IV DATA: Site assessment: Clean,Dry and Intact, Site disposition Discontinued SIGNED BY: Corry Beal RT(R) October 07, 2024 8:06 AM [facility] 10-07-2024 Note HNO ID: [id number] Author: ALEXANDER BROWNING RN Service: ? Author [...] abuse: no Allergies reviewed with patient, yes. [id number] Mask completed. To imaging for CT Scan and MRI. Ike Flannery returned to department for treatment # 1 of 1. Is patient on immunotherapy? No. Patient's Age: 53 Menstruation Status: Hysterectomy 921 Decadron 4 mg po and xanax 0.5 po given prior to Gamma Knife SRS per order of Dr. Adán MD. 934 Patient assisted to treatment room. Gamma Knife SRS begun. 101 Gamma Knife Stereotactic Radiosurgery Completed. 102 Discharge instructions given to patient. Instructions reviewed by this nurse and patient verbalized an understanding. Pt then discharged. 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 Localized disease at diagnosis s/p bilateral mastectomy and right ALND, [id number] disease and subsequent adjuvant RT completed 2023. [...] Dr. Josue Mccain documented in this encounter [facility] 10-07-2024 History of Present illness Narrative IKE FLANNERY [id number] 10/07/2024 [facility] Marilu Castro Brain Tumor and Neuro-Oncology [facility] GAMMA KNIFE STEREOTACTIC RADIOSURGERY (SRS) DAILY [...] patient setup, I conferred with the medical writer to approve the final setup. I was [...] M.D. 56:36 AM documented in this encounter [facility] 10-07-2024 Note HNO ID: [id number] Author: MARCOS MCGILL MD Service: Radiation Oncology Author Type: Physician Type: Progress Notes Filed: 10/13/2024 06:36 Note Text: IKE FLANNERY [id number] 10/07/2024 [facility] Marilu Castro Brain Tumor and Neuro-Oncology [facility] GAMMA KNIFE STEREOTACTIC RADIOSURGERY (SRS) DAILY [...] patient setup, I conferred with the medical writer to approve the final setup. I was [...] Electronically Signed Marcos Mcgill M.D. 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 Localized disease at diagnosis s/p bilateral mastectomy and right ALND, [id number] disease and subsequent adjuvant RT completed 2023. [...] AM Electronically Signed cc: Dr. Josue Mccain [facility] 10-05-2024 History of Present illness Narrative Images from the original note were not included. [facility] [address] Office Jhon Gross MD, PhD Marisela Cuevas APRN-ESPERANZA Smallwood PA-C Plastic Surgery Progress Note Reason for visit : post-op History of present illness: Ike Flannery is a 53 y.o. female with a history of right breast cancer status post bilateral skin sparing mastectomies (He) and tissue equine science instructor reconstruction in 10/28/2023. Her postoperative course was complicated by an infected seroma of her left breast requiring operative washout and tissue equine science instructor removal 11/27/23. Intraoperative cultures demonstrated growth of [...] gamma knife radiation scheduled for Thursday at [facility]. She has a whole-body PET scan scheduled [...] to ensure the accuracy of this automated mft, some errors in mft may have occurred. AMEENA Kennedy 10/05/24 1443 documented in this encounter [employer] [facility] 09-23-2024 Telephone encounter Note I spoke with Ike to let her know that her second stage of Gamma Knie will be scheduled for October 07. Ike verbalized agreement with this date and had no further questions or concerns at this time but knows to reach out if she does. [facility] Work Phone: 09-23-2024 Miscellaneous Notes I spoke with Ike to let her know that her second stage of Gamma Knie will be scheduled for October 07. Ike verbalized agreement with this date and had no further questions or concerns at this time but knows to reach out if she does. documented in this encounter [facility] 09-22-2024 Telephone encounter Note General Call Caller : Ike Contact Reason for Call : Patient would like a call back in regards to getting there next gamma knife appointment. Please advise. Patient requesting return call ? Yes [facility] 09-22-2024 Miscellaneous Notes General Call Caller : Ike Contact Reason for Call : Patient would like a call back in regards to getting there next gamma knife appointment. Please advise. Patient requesting return call ? Yes documented in this encounter [facility] 09-20-2024 Miscellaneous Notes Patient called and stated she is suffering with more anxiety than usual and would like something called in to [facility] in [place]. Is she having anxiety and panic where she needs something as needed or more of a daily, computer terminal operator anxiety medication? Patient would like computer terminal operator medication. I sent her in zoloft 50mg daily - she should expect mild improvement in about 30 days - full effect in 8 wks - she can go up with dose if needed she should let me know Patient notified documented in this encounter [facility] 09-20-2024 Telephone encounter Note Patient called and stated she is suffering with more anxiety than usual and would like something called in to [facility] in [place]. [facility] 09-20-2024 Telephone encounter Note Is she having anxiety and panic where she needs something as needed or more of a daily, fci anxiety medication? [facility] 09-20-2024 Telephone encounter Note Patient would like fci medication. [facility] 09-20-2024 Telephone encounter Note I sent her in zoloft 50mg daily - she should expect mild improvement in about 30 days - full effect in 8 wks - she can go up with dose if needed she should let me know [facility] 09-20-2024 Telephone encounter Note Patient notified [facility] 09-16-2024 Instructions Geno Pierce APRN.DIAL SCREW ASSEMBLER - 09/16/2024 9:16 AM EDT -Shower regularly [...] 6 weeks after surgery. Do not perform bath steward/stewardess such as laundry and vacuuming. Do not [...] questions or concerns during business hours call [phone], option 3 or after hours (after 5 pm or on the weekend) call [phone] and ask for the plastic surgery resident / fellow professional volleyball player for further instructions. If you have increasing [...] with light pressure. documented in this encounter [facility] 09-16-2024 Note HNO ID: [id number] Author: GENO PIERCE APRN.CNP Service: ? Author Type: Nurse Practitioner Type: Progress Notes Filed: 09/16/2024 14:45 Note Text: Plastic Surgery Note CC: post op HPI: Ike is a 53 year old female who presents today for evaluation of s/p 08/30/2024 Dr. [place] 1. Excisional biopsy right breast skin 2. Explantation of right breast tissue equine science instructor intact 3. Debridement of right breast pocket for closure and 20 x 20 cm ARTEMIO drain removed by Plastic Surgey team at [facility] Pt reports she is feeling well. Denies pain. Denies drainage from the incision. Denies fever/chills. Pathology FINAL DIAGNOSIS A. Right breast skin, excision: - Carcinoma involving dermis, see comment. B. Right breast, equine science instructor removal: - Grossly unremarkable, collapsed, textured equine science instructor (Gross examination only). SS/MLG at 1420 EDT Diagnosis Comment The morphologic features are compatible with breast origin. The lesion measures up to 10 mm and extends to inked specimen margins. ER, DC and HER2 are pending and will be [...] 4:17 PM Gross examination performed at [facility], [address] [place] [address] B. Hardware/Device/Foreign Body Received fresh labeled as right breast tissue equine science instructor is a collapsed textured equine science instructor weighing 144.10 g and measuring 15.0 x 14.0 x 2.0 cm with the following inscription ALLOX2 SIENTRA FH 14 . No soft tissue is present. No sections are submitted. The specimen is reviewed with Dr. Kerns. Gross examination only. MLG 08/30/24 1:20 PM Gross examination performed at [facility], [address] [place] [address] Clinical History Pre-op diagnosis: Cancer (HCC) [C80.1] History of reconstruction of both breasts [Z98.890] Performing Lab Diagnostic interpretation performed at: [facility], [address] [place] [address], [facility] [place] [address] CLIA# [id number] Laboratory Immunologist: Derick Meadows MD Disclaimer PAST MEDICAL HISTORY [...] days. Max Daily (more content not included)... [facility] 09-16-2024 History of Present illness Narrative Plastic Surgery Note CC: post op HPI: Ike is a 53 year old female who presents today for evaluation of s/p 08/30/2024 Dr. [place] 1. Excisional biopsy right breast skin 2. Explantation of right breast tissue equine science instructor intact 3. Debridement of right breast pocket for closure and 20 x 20 cm ARTEMIO drain removed by Plastic Surgey team at [facility] Pt reports she is feeling well. Denies pain. Denies drainage from the incision. Denies fever/chills. Pathology FINAL DIAGNOSIS A. Right breast skin, excision: - Carcinoma involving dermis, see comment. B. Right breast, equine science instructor removal: - Grossly unremarkable, collapsed, textured equine science instructor (Gross examination only). SS/MLG at 1420 EDT Diagnosis Comment The morphologic features are compatible with breast origin. The lesion measures up to 10 mm and extends to inked specimen margins. ER, DC and HER2 are pending and will be [...] 08/30/24 4:17 PM [place] [address] B. Hardware/Device/Foreign Body Received fresh labeled as right breast tissue equine science instructor is a collapsed textured equine science instructor weighing 144.10 g and measuring 15.0 x 14.0 x 2.0 cm with the following inscription ALLOX2 SIENTRA FH 14 . No soft tissue is present. No sections are submitted. The specimen is reviewed with Dr. Kerns. Gross examination only. [facility] 08/30/24 1:20 PM Gross examination performed at [address], [place] [address] Clinical History Pre-op diagnosis: Cancer (HCC) [C80.1] History of reconstruction of both breasts [Z98.890] Performing Lab Diagnostic interpretation performed at: [facility], [address] [place] [address], [address] [id number] Laboratory Immunologist: Derick Meadows MD Disclaimer PAST MEDICAL HISTORY [...] skin 2. Explantation of right breast tissue equine science instructor intact 3. Debridement of right breast pocket [...] 6 weeks after surgery. Do not perform bath steward/stewardess such as laundry and vacuuming. Do not [...] questions or concerns during business hours call [phone], option 3 or after hours (after 5 pm or on the weekend) call [phone] and ask for the plastic surgery resident / fellow professional volleyball player for further instructions. If you have increasing [...] 2024 2:43 PM documented in this encounter [facility] 09-16-2024 History of Present illness Narrative Images from the original note were not included. Recording using ambient [employer] software for draft documentation of the visit was discussed with the patient/authorized u.s. representative; all questions welcomed and answered. Patient/authorized u.s. representative agreed to proceed ATTENDING PHYSICIAN: Dr. Bobby Christy IDENTIFICATION: Ike Flannery is a 53 year old woman with an ER positive (41-50%), DC negative, Odg7lqb negative (IHC 0+) metastatic breast cancer with [...] mastectomy with right axillary dissection and tissue equine science instructor placement Radiation Anastrozole (January 2024 - May 2024) May 2024 (metastatic diagnosis) Capecitabine (July 2024 - present) Gamma knife (September 07, 2024) INTERVAL HISTORY: Pt presents today by herself for evaluation prior to continuation of therapy for metastatic breast cancer. Metastatic Cancer: - Follows with oncologist in [place], usually monthly, but more frequently recently. - Started Xeloda on September 08; currently on treatment week, with off week starting on the . - Reports fatigue and decreased alertness after taking Xeloda; has not taken today's dose yet. - No nausea or diarrhea reported. - Noticed worsening neuropathy and yolk spray drier fingers; no redness or peeling in palms. - Prefers Xeloda over other treatments due to concerns about hair loss. - Underwent Gamma Knife surgery; reports clearer thoughts and improved speech within 48 hours post-surgery. - Weekly blood work for oncology and infectious disease monitoring. - Last PET scan in May at [facility] - No current pain reported. REVIEW OF [...] Lymph 1.00 - 4.00 k/uL 1.22 Abs Morehouse <0.87 k/uL 0.38 Abs Eosin <0.46 k/uL <0.03 Abs Baso <0.11 k/uL <0.03 NRBC /100 WBC 0.0 IMPRESSION: woman with an ER positive (41-50%), DC negative, Kcp8gzv negative (IHC 0+) metastatic breast cancer with [...] which included preparing to see the patient, [id number] patient care, completing clinical documentation, performing a medically appropriate examination, counseling and educating the patient/family/caregiver, ordering medications, tests, or procedures, and communicating results to the patient/family/caregiver. Alessandra Syde APRN.ESPERANZA Additional intake questions: Has the patient [...] Alejandro Yang LPN documented in this encounter [facility] 09-16-2024 Note HNO ID: [id number] Author: ALESSANDRA SYED APRN.DIAL SCREW ASSEMBLER Service: ? Author Type: Nurse Practitioner Type: Progress Notes Filed: 09/16/2024 08:33 Note Text: Recording using ambient [employer] software for draft documentation of the visit was discussed with the patient/authorized u.s. representative; all questions welcomed and answered. Patient/authorized u.s. representative agreed to proceed ATTENDING PHYSICIAN: Dr. Bobby Christy IDENTIFICATION: Ike Flannery is a 53 year old woman with an ER positive (41-50%), DC negative, Lpo6jio negative (IHC 0+) metastatic breast cancer with [...] mastectomy with right axillary dissection and tissue equine science instructor placement Radiation Anastrozole (January 2024 - May 2024) May 2024 (metastatic diagnosis) Capecitabine (July 2024 - present) Gamma knife (September 07, 2024) INTERVAL HISTORY: Pt presents today by herself for evaluation prior to continuation of therapy for metastatic breast cancer. Metastatic Cancer: - Follows with oncologist in [place], usually monthly, but more frequently recently. - Started Xeloda on September 08; currently on treatment week, with off week starting on the . - Reports fatigue and decreased alertness after taking Xeloda; has not taken today's dose yet. - No nausea or diarrhea reported. - Noticed worsening neuropathy and yolk spray drier fingers; no redness or peeling in palms. - Prefers Xeloda over other treatments due to concerns about hair loss. - Underwent Gamma Knife surgery; reports clearer thoughts and improved speech within 48 hours post-surgery. - Weekly blood work for oncology and infectious disease monitoring. - Last PET scan in May at [facility] - No current pain reported. REVIEW OF [...] Lymph 1.00 - 4.00 k/uL 1.22 Abs Morehouse <0.87 k/uL 0.38 Abs Eosin <0.46 k/uL <0.03 Abs Baso <0.11 k/uL <0.03 NRBC /100 WBC 0.0 IMPRESSION: woman with an ER positive (41-50%), DC negative, Drx9ddq negative (IHC 0+) metastatic breast cancer with [...] requiring further gloria (more content not included)... [facility] 09-16-2024 Note HNO ID: [id number] Author: ALEJANDRO YANG LPN Service: ? Author [...] Center Electronically Signed By: Alejandro Yang LPN [facility] 09-13-2024 Note Division of Infectio us [...] well s/p gamma knife radiation 08/2024 at [facility] Here to discuss clofazamine, has been approved by IRB, FDA and [facility]. Consent signed and reviewed with Avi Tobar [facility], patient and myself. Updated Consent reviewed and [...] drain. Pembrolizumab stopped. 09/13 Follow up with [facility] again for additional gamma knife, she was found to have brain mets from her breast cancer. Right breast tissue equine science instructor was removed for Brain MRI at [facility]. Last culture from 08/12 AFB is positive, though she has had good wound healing since her last debridement and has not required any further wound debridement. She will continue to follow with here in [place]. Xeloda is Presently on hold. 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 Additional Isolate has been sent to [facility] lab of and for additional synergy testing Will setup telemeeting with them in the near future. New pseudomonas from 08/09 wound culture Start levofloxacin 750mg daily for 10 days-completed QTC 08/26: 398 Cr slight bump to 1.34 Monitor LFTs, transaminases slightly elevated, ALT remains elevated though stable 105-120 Most recent at 117 Subjective History of Present Illness: She was [facility] from 05/02/2024 to 05/13/2024. I had discussed with patient's plastic surgeon Dr. Gross that I was concerned about her left chest port and her continuing wound from the left breast area. After her appointment with me patient had sent in pictures of the wound dehiscing. I forwarded these pictures and my concerns to Dr. Gross's office who promptly had patient admitted to [facility] for left Mediport removal and additional debridement. While there she was continued on her IV amikacin, p.o. tedizolid, and oral clofazimine. She is initially receiving clofazimine at a lower dose of 50 mg however this was later corrected and she received her appropriate dose (more content not included)... [facility] 09-08-2024 History of Present illness Narrative [facility] [address] Office Jhon Gross MD, PhD Marisela Cuevas, WEB DEVELOPMENT INSTRUCTOR-DIAL SCREW ASSEMBLER Shereen Smallwood PA-C Plastic Surgery Progress Note Reason for visit : post-op History of present illness: Ike Flannery is a 53 y.o. female with a history of right breast cancer status post bilateral skin sparing mastectomies (He) and tissue equine science instructor reconstruction in 10/28/2023. Her postoperative course was complicated by an infected seroma of her left breast requiring operative washout and tissue equine science instructor removal 11/27/23. Intraoperative cultures demonstrated growth of [...] . Patient was most recently admitted to [facility] on 08/26/2024 after her oncologist ordered a CT scan confirming brain metastasis after noticing that she was experiencing some slurring of her speech and right hand weakness She was admitted to [facility] and underwent removal of her right breast tissue equine science instructor as an MRI was needed to further confirm and categorize her brain metastasis and her tissue equine science instructor contained magnets. MRI showed multiple enhancing lesion [...] this note were generated using voice recognition [employer] dictation software. Although every effort was made to ensure the accuracy of this automated mft, some errors in mft may have occurred. Shereen Smallwood PA-C 09/09/24 1326 documented in this encounter [employer] 09-07-2024 Note HNO ID: [id number] Author: JOSUE MCCAIN DO, PhD Service: ? Author Type: Physician Type: Progress Notes Filed: 09/07/2024 14:44 Note Text: [facility] [address] [place] [address] [place] OPERATIVE REPORT NAME: Ike Flannery [facility] NO.: [id number] MASK SIMULATION DATE: 2024-09-07 RADIATION TREATMENT START [...] Number of Fractions: 1 After the usual vice president quality procedures were performed, fractionated radiosurgery was delivered with use of the Gamma Knife. The Gamma Knife checklists and time outs were performed during this procedure in a standard manner. Josue Mccain DO, PhD [facility] 09-07-2024 History of Present illness Narrative [facility] [address] [place] [address] [place] OPERATIVE REPORT NAME: Ike Flannery [facility] NO.: [id number] MASK SIMULATION DATE: 2024-09-07 RADIATION TREATMENT START [...] were loaded in the planning computer and [employer] gamma plan was used to perform fractionated [...] Number of Fractions: 1 After the usual vice president quality procedures were performed, fractionated radiosurgery was delivered with use of the Gamma Knife. The Gamma Knife checklists and time outs were performed during this procedure in a standard manner. Josue Mccain DO, PhD documented in this encounter [facility] 09-07-2024 Instructions Alexander Browning, OC - 09/07/2024 11:06 AM EDT [facility] Gamma Knife Center Discharge Instructions As with [...] a physician or hospital other than the [facility] with any problem related to the Gamma Knife procedure, please call your physician, Dr. Sherly Mccain at [phone]. After your treatment, you may experience a [...] call your physician, Dr. Sherly Mccain at [phone] Thursday through Thursday 8:00 am to 5:00 pm. In the evening or on weekends, call [phone] or toll-free [phone] and ask the sewing machine operator to page your neurosurgeon's resident professional volleyball player. documented in this encounter [facility] 09-07-2024 History of Present illness Narrative Radiology [...] PATIENT PRESENTS WITH AN IMPLANTABLE OR ATTACHED MVA OPERATOR: No RADIOLOGY DEPARTMENT: CT; Exam(s) Completed: Brain PERIPHERAL IV DATA: Not applicable SIGNED BY: RT Christine(Radha) September 07, 2024 8:54 AM documented in this encounter [facility] 09-07-2024 Note HNO ID: [id number] Author: CANDICE SANTILLAN RT(R) Service: Radiology Author [...] PATIENT PRESENTS WITH AN IMPLANTABLE OR ATTACHED MVA OPERATOR: No RADIOLOGY DEPARTMENT: CT; Exam(s) Completed: Brain PERIPHERAL IV DATA: Not applicable SIGNED BY: RT Christine(R) September 07, 2024 8:54 AM [facility] 09-07-2024 History of Present illness [...] PATIENT PRESENTS WITH AN IMPLANTABLE OR ATTACHED MVA OPERATOR: No RADIOLOGY DEPARTMENT: MR; Exam(s) Completed: Head: Localization. Aromatherapy Administered: No PERIPHERAL IV DATA: Site assessment: Clean,Dry and Intact, Site disposition Left in for next appointment PICC SIGNED BY: RT Dagoberto(R) September 07, 2024 8:35 AM documented in this encounter [facility] 09-07-2024 Note HNO ID: [id number] Author: SHEREEN HOPSON RT(R) Service: Radiology Author Type: Durable Medical Equipment Repairer Type: Progress Notes Filed: 09/07/2024 08:36 Note [...] PATIENT PRESENTS WITH AN IMPLANTABLE OR ATTACHED MVA OPERATOR: No RADIOLOGY DEPARTMENT: MR; Exam(s) Completed: Head: Localization. Aromatherapy Administered: No PERIPHERAL IV DATA: Site assessment: Clean,Dry and Intact, Site disposition Left in for next appointment PICC SIGNED BY: RT Dagoberto(Radha) September 07, 2024 8:35 AM [facility] 09-07-2024 Note HNO ID: [id number] Author: PRECIOUS MEJIA RN Service: Nursing Author [...] DATE: September 07, 2024 TIME: 8:18 AM [facility] 09-07-2024 Note HNO ID: [id number] Author: ALEXANDER BROWNING RN Service: ? Author Type: Registered Nurse Type: Progress Notes Filed: 09/07/2024 14:26 Note Text: September 07, 2024 0722 Ike arrived ambulatory [...] abuse: no Allergies reviewed with patient, yes. [id number] Mask completed. To imaging for CT Scan [...] understanding. Pt then discharged. Alexander Browning RN [facility] 09-07-2024 History of Present illness [...] abuse: no Allergies reviewed with patient, yes. 1030-1931 Mask completed. To imaging for CT Scan [...] Alexander Browning RN documented in this encounter [facility] 09-07-2024 History of Present illness Narrative IKE FLANNERY [id number] 09/07/2024 [facility] GAMMA KNIFE STEREOTACTIC RADIOSURGERY (SRS) DAILY PROCEDURE [...] patient setup, I conferred with the medical writer to approve the final setup. I was [...] M.D. 51:00 PM documented in this encounter [facility] 09-07-2024 History of Present illness Narrative IKE FLANNERY [id number] 09/07/2024 [facility] Department of Radiation Oncology [facility] RADIATION ONCOLOGY GAMMA KNIFE SIMULATION NOTE DATE [...] treatment planning. Electronically Signed Quynh Melo M.D. 510:53 AM documented in this encounter [facility] 09-07-2024 History of Present illness Narrative IKE FLANNERY [id number] 09/07/2024 [facility] Department of Radiation Oncology [facility] RADIATION ONCOLOGY: COMPLETION NOTE DATE OF TREATMENT: [...] Kaye Manuel CNP [address] [place] [address] Patient Care Team: Kaye Manuel CNP as PCP - General (Family Medicine) Gino Flower APRN Chawla, Apoorva, MD as Referring (Hematology/Oncology) Shereen Smallwood PA-C as Referring (Orthopedics) Saman Joe RN as Specialty Education Diagnostician (Hematology/Oncology) documented in this encounter [facility] 09-07-2024 Note HNO ID: [id number] Author: SAM MELO MD Service: Radiation Oncology Author Type: Physician Type: Progress Notes Filed: 09/07/2024 13:00 Note Text: IKE FLANNERY [id number] 09/07/2024 [facility] GAMMA KNIFE STEREOTACTIC RADIOSURGERY (SRS) DAILY PROCEDURE [...] patient setup, I conferred with the medical writer to approve the final setup. I was [...] Electronically Signed QUYNH MELO M.D. 51:00 PM [facility] 09-07-2024 Note HNO ID: [id number] Author: SAM MELO MD Service: Radiation Oncology Author Type: Physician Type: Progress Notes Filed: 09/07/2024 20:24 Note Text: IKE FLANNERY [id number] 09/07/2024 [facility] Department of Radiation Oncology [facility] RADIATION ONCOLOGY: COMPLETION NOTE DATE OF TREATMENT: [...] Signed cc: Kaye Manuel CNP [address] [place] [address] Patient Care Team: Kaye Manuel CNP as PCP - General (Family Medicine) Gino Flower APRN Chawla, Apoorva, MD as Referring (Hematology/Oncology) Shereen Smallwood PA-C as Referring (Orthopedics) Saman Joe RN as Specialty Education Diagnostician (Hematology/Oncology) [facility] 09-07-2024 Note HNO ID: [id number] Author: SAM MELO MD Service: Radiation Oncology Author Type: Physician Type: Progress Notes Filed: 09/07/2024 10:53 Note Text: IKE FLANNERY [id number] 09/07/2024 [facility] Reid[facility] Department of Radiation Oncology [facility] RADIATION ONCOLOGY GAMMA KNIFE SIMULATION NOTE DATE [...] treatment planning. Electronically Signed Quynh Melo M.D. 510:53 AM [facility] 09-05-2024 Miscellaneous Notes Pt calling into the office for wound check appointment. Ok to schedule pt per Shereen STACK Pt scheduled for 09/08/2024. - Dee Dee Buck RN 09/05/24 3:13 PM documented in this encounter [facility] 09-05-2024 Telephone encounter Note Pt calling into the office for wound check appointment. Ok to schedule pt per Shereen STACK Pt scheduled for 09/08/2024. - Dee Dee Buck RN 09/05/24 3:13 PM [facility] 09-05-2024 Note HNO ID: [id number] Author: MARISELA CISNEROS MD Service: ? Author Type: Physician Type: Progress Notes Filed: 09/05/2024 14:49 Note Text: [facility] VISIT I have communicated my name and active licensure. The patient?s identity and physical location were verified at the time of this visit. Ike Flannery or their legal u.s. representative has been informed of the risks [...] plastic surgeon before her upcoming travel to [place] for a family wedding. Data Reviewed: 08/31/24 [...] patient on thromboprophylaxis measures during travel to [place] post-procedure, including regular ambulation every 1-2 hours during car travel. - Scheduled follow-up MRIs to monitor for treatment-related edema and tumor response. - Discussed the possibility of a staged procedure for the lesion measuring 2 cm, contingent on mri findings. I discussed the differential of the enhancement along her left IAC (more content not included)... [facility] 09-05-2024 History of Present illness Narrative [facility] VISIT I have communicated my name and active licensure. The patient s identity and physical location were verified at the time of this visit. Ike Flannery or their legal u.s. representative has been informed of the risks [...] plastic surgeon before her upcoming travel to [place] for a family wedding. Data Reviewed: 08/31/24 [...] patient on thromboprophylaxis measures during travel to [place] post-procedure, including regular ambulation every 1-2 hours during car travel. - Scheduled follow-up MRIs to monitor for treatment-related edema and tumor response. - Discussed the possibility of a staged procedure for the lesion measuring 2 cm, contingent on mri findings. I discussed the differential of the enhancement along her left IAC and the plan to follow that. Ike Alma Delia s appropriate for consideration of GKRS. I [...] MD cc: Kaye Manuel CNP [address] [place] [address] No referring provider defined for this encounter. Patient Care Team: Kaye Manuel CNP as PCP - General (Family Medicine) Gino Flower APRN Chawla, Apoorva, MD as Referring (Hematology/Oncology) Shereen Smallwood PA-C as Referring (Orthopedics) Saman Joe RN as Specialty Education Diagnostician (Hematology/Oncology) documented in this encounter [facility] 09-01-2024 Note HNO ID: [id number] Author: CLAIRE STRATTON RN Service: Care Management [...] Physician Primary Care Physician Name/Phone: Kaye Manuel, DIAL SCREW ASSEMBLER [phone] Discharge Information Row Name Admission (Current) from 08/26/2024 in [facility] [employer], [place], [place] Phone/Fax and F: [phone] Patient has been on two IV abx at home thru PICC since December [address] Herman Lui with [facility] ph: [phone]. Patient and spouse independent with dressing changes. Patient gets lab draws at [facility] ph: [phone] Active with [facility] ph: [phone] and f: [phone]. Per [facility], since [facility] is not following for homegoing IV abx and the order is written by an outside provider they will not require a new order. Patient set to resume services on discharge. Discharge paperwork sent to agency. Spouse to transport. Ready for discharge from . SIGNATURE: Claire Stratton RN PATIENT NAME: Ike Flannery DATE: September 01, 2024 TIME: 1:36 PM [facility] 08-31-2024 Note HNO ID: [id number] Author: KAYLEIGH SINGH MD Service: Neurosurgery Author [...] Kayleigh Singh MD PGY-3, Neurological Surgery Pager: [phone] Neurosurgery On-Call: [phone] Please page [phone] from 6PM to 6:30AM ([phone]) Or if unable to be reached [facility] 08-31-2024 Note HNO ID: [id number] Author: JOSUE MCCAIN DO, PhD Service: Neurology [...] the speech worsened. Josue Mccain DO, PhD [facility] 08-31-2024 Miscellaneous Notes Spoke with microbiology Culture was positive for AFB documented in this encounter [facility] 08-31-2024 Telephone encounter Note Spoke with microbiology Culture was positive for AFB [facility] 08-31-2024 Note HNO ID: [id number] Author: CLAIRE STRATTON, OC Service: Care Management [...] [address] Herman Lui with [facility] ph: [phone]. Patient and spouse independent with dressing changes. Patient gets lab draws at [facility] ph: [phone] Active with [facility] ph: [phone] and f: [phone]. Per [facility], since [facility] is not [...] DATE: August 31, 2024 TIME: 11:11 AM [facility] 08-31-2024 Note HNO ID: [id number] Author: EV CORTEZ DO Service: Hematology/Oncology Author Type: Physician Type: Progress Notes Filed: 08/31/2024 15:51 Note Text: SOLID TUMOR SERVICE PROGRESS NOTE Overnight: From 5P - 7A, [place] [phone]. Subjective INTERVAL HPI: NAWILFREDO, HDS. Overnight, she had some difficulty sleeping and [...] 4 extremities and hands/feet. Sensation intact bilaterally. Record Press Supervisor strength equal and strong bilaterally. No dysmetria. [...] 1206 Peripherally Inserted (PICC) Left Arm 5.0 Slovenian 120 days Drain Duration Drain/Tube 08/30/24 1253 [facility] Facility (more content not included)... [facility] 08-30-2024 Note HNO ID: [id number] Author: EV CORTEZ DO Service: Hematology/Oncology Author Type: Physician Type: Progress Notes Filed: 08/30/2024 21:38 Note Text: SOLID TUMOR SERVICE PROGRESS NOTE Overnight: From 5P - 7A, [place] [phone]. Subjective INTERVAL HPI: JAVIER COREA. She is feeling well today. She had her tissue equine science instructor removed today, and safety screen completed. Overnight, [...] 4 extremities and hands/feet. Sensation intact bilaterally. Record Press Supervisor strength equal and strong bilaterally. No dysmetria. Romberg negative. No gait abnormalities. Cxxbkv-ud-rkbq and jhxk-sq-pgla intact bilaterally. No notable dysarthria on exam. [...] q 12 HR LABORATORY DATA Recent Labs 08/30/24 0346 08/29/24 0300 08/28/24 [...] 05/02/24 1206 Per (more content not included)... [facility] 08-30-2024 Note HNO ID: [id number] Author: DEENA VU DO Service: Plastic Surgery [...] AND Reconstructive Surgery Hand Surgery Resident Pager: [phone] After 6PM AND on weekends, please page [phone] (Plastic Surgery on-call) [facility] 08-30-2024 Note HNO ID: [id number] Author: SAM STUART MD Service: ? 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 Treated by ID (Dr Noguera in [place]) with Amikacin 750 mg MWF, Imipenem 1 [...] have right sided brain mass. Transferred to [facility] for management. Needs right tissue equine science instructor to be removed in order to get MRI in order to be evaluated for radiation therapy. Planned for OR 08/30 for removal of tissue equine science instructor. RECOMMENDATIONS: Continue current abx regimen - Omadacycline 300 mg qd - from home - Clofazimine 100 mg qh - from home - Amikacin 900 mg three times weekly with goal peak 30 (more content not included)... [facility] 08-29-2024 Note HNO ID: [id number] Author: CLAIRE STRATTON RN Service: Care Management Author Type: Registered Nurse Type: Care Mgt Initial Assessment Filed: 08/30/2024 11:45 Note Text: CARE MANAGEMENT: ASSESSMENT AND DISCHARGE PLAN SERVICE DATE: August 29, 2024 SERVICE TIME: 1:32 PM PCP: Kaye Manuel CNP, CNP Primary Contact: Extended Emergency Contact Information Primary Emergency Contact: Jean Carlos Becker Relation: Spouse Admission Status: Inpatient Insurance Provider: [employer] OF [place] Discharge Planning requested by: Per Department Practice Potential Transition Plans To Be Determined, Home Care Pharmacy Advance Directives Current Advance Directive: None Bingo Floater Attempted to Assist with AD Completion: Yes [...] Service(s): Infusion Services Current Post-Acute Service(s) Provider: Roberto Care Discharge Planning Patient Goal(s): General wellness [place] of Choice Explained: [place] of Choice Given: No Reason Not Given: [...] new finding of brain metastases at [facility]. Patient from home with spouse and mom. Independent with ADL's with no DME TECHNICAL ASSISTANT. 6 clicks 24, currently on RA. Patient has been on two IV abx at home thru PICC since December [address] Herman Lui with [facility] ph: [phone]. Active with [facility] ph: [phone] and f: [phone]. Will need to determine if inpatient ID doctor will order COPAT to resume services or if orders will be needed from Dr. Lui. Patient and spouse independent with dressing changes. Patient gets lab draws at [facility] ph: [phone] - will need to send updated COPAT [...] DATE: August 29, 2024 TIME: 1:32 PM [facility] 08-29-2024 Note HNO ID: [id number] Author: GENNA SAHU DO Service: Hematology/Oncology Author Type: Physician Type: Progress Notes Filed: 08/29/2024 12:42 Note Text: SOLID TUMOR SERVICE PROGRESS NOTE Overnight: From 5P - 7A[place] [phone]. Subjective INTERVAL HPI: JAVIER COREA. She is [...] Prominent right breast c/w presence of tissue equine science instructor. Skin: Warm, dry. Chronic wound of left breast with clean pink base Neurologic: AOx3. CN: II-XII intact. Strength 5/5 proximally and distally in all 4 extremities and hands/feet. Sensation intact bilaterally. Record Press Supervisor strength equal and strong bilaterally. No dysmetria. Romberg negative. No gait abnormalities. Zdhqsi-bp-wgwc and jgbx-js-gjhc intact bilaterally. No notable dysarthria on exam. [...] 0.05 Recent Labs 08/29/24 0300 08/28/24 0258 08/27/24328 NA 143 139 140 K 3.8 3.4* [...] unspecified laterality (HCC (more content not included)... [facility] 08-28-2024 Note HNO ID: [id number] Author: LOU ELIZABETH MD Service: Oncology Author Type: Physician Type: Progress Notes Filed: 08/28/2024 19:38 Note Text: SOLID TUMOR SERVICE PROGRESS NOTE Overnight: From 5P - 7A, [place] [phone]. Subjective INTERVAL HPI: JAVIER COREA. She is [...] Prominent right breast c/w presence of tissue equine science instructor. Skin: Warm, dry. Chronic wound of left breast with clean pink base Neurologic: AOx3. CN: II-XII intact. Strength 5/5 proximally and distally in all 4 extremities and hands/feet. Sensation intact bilaterally. Record Press Supervisor strength equal and strong bilaterally. No dysmetria. Romberg negative. No gait abnormalities. Eicpok-ga-vbnq and dhjt-ct-tpzg intact bilaterally. No notable dysarthria on exam. [...] q 8 H LABORATORY DATA Recent Labs 08/28/2425708/27/249 08/26/24 1753 WBC 7.55 3.94 4.28 RBC [...] 0.32 ABSBASO <0.03 0.05 0.06 Recent Labs 08/28/2425708/27/2432808/26/24 1753 NA 139 140 141 K 3.4* [...] 08/27/2024 Yes Super (more content not included)... [facility] 08-26-2024 Note HNO ID: [id number] Author: RISHI ANDREA MD Service: Oncology Author Type: Resident Type: Plan of Care Filed: 08/26/2024 15:58 Note Text: PLAN OF CARE ____ Patient Name: Ike Flannery Date: August 26, 2024 Re: Antibiotic regimen Information below is a summary of this patient's ID plan from Avi Tobar, SukiD, BCPS, research pharmacist at [facility], sent by email on 08/26/24. Dr. Herman Lui said that he will call [facility] ID. Dr. Herman Lui can be reached at cell phone [phone], please feel free to share with ID. [...] lot. Clofazimine will not reconcile directly into [facility] since [facility] has an individually built entry, so [...] cultures/sensitivities, etc. Hopefully, there's a lot in [facility] Care Everywhere. Patient is undergoing work [...] DATE: August 26, 2024 TIME: 1539 PAGER: [phone] [facility] 08-25-2024 Note The following action s were done/reviewed. Care was coordinated accordingly and patient was communicated with. Follow up EKG done on 08/24 for levofloxacin and clofazimine QT c prolongation obtained. Results reviewed and approved by Dr. Lui. Uploaded into Nutrition Consultant. I spoke to Richie Hanna CNP on the phone and reviewed recent labs (potassium/serum creatinine/eGFR). Recommendation accepted to decrease spironolactone from 25 mg daily to 12.5 mg daily. Prescription sent and updated in [facility]. Patient will self-monitor and record BP/HR at home and communicate if it increases. Follow up on continued hepatic monitoring: INR results from 08/[address] Lui to review. CMP results from 08/24 are pending fax from [facility] and posting in [facility] Nutrition Consultant. Avi Tobar, SukiD, BCPS; Clinical Research Pharmacist. [facility] 08-25-2024 History of Present illness Narrative Called patient's pharmacist from [facility] and pharmacist stated that patient's serum [...] Garcia 08/25/24 1001 documented in this encounter [facility] 08-24-2024 Note [id number] Theresa Flannery 1970 F Date Provider Department Center 08/24/2024 AndrewsAVI TOBAR [facility] Family History Adopted: Yes Problem Relation Age of Onset Heart attack Father Family Status - Relation Status Age at Father [facility] 08-23-2024 Note Spoke with Rajinder at [facility] to determine if CMP was done with CBC and liver panel from 08/22. He stated one was not done but they still had tube and could add CMP on. Fax number confirmed. CMP orders faxed to [facility]. [facility] 08-19-2024 Note [facility]ication list [facility] History of Present illness Narrative Images from the original note were not included. [facility] [address] Office Jhon Gross MD, PhD AMEENA Kennedy PA-C Plastic Surgery Progress Note Reason for visit : post-op History of present illness: Ike Flannery is a 53 y.o. female with a history of right breast cancer status post bilateral skin sparing mastectomies (He) and tissue equine science instructor reconstruction in 10/28/2023. Her postoperative course was complicated by an infected seroma of her left breast requiring operative washout and tissue equine science instructor removal 11/27/23. Intraoperative cultures demonstrated growth of [...] patient's mycobacterium labs were sent further to [facility] per Infectious Disease request. The patient is [...] this note were generated using voice recognition [employer] dictation software. Although every effort was made to ensure the accuracy of this automated mft, some errors in mft may have occurred. Shereen Smallwood PA-C 08/29/24 1129 documented in this encounter [employer] 08-17-2024 Note Med list changes [facility] 08-16-2024 Note Division of Infectio us Diseases [...] has been approved by IRB, FDA and [facility] [place]. Consent signed and reviewed with Avi Tobar [facility], patient and myself. 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 Clofazimine JOSÉ MIGUEL remains <= 0.5 Imipenem remains at JOSÉ MIGUEL of 16 No JOSÉ MIGUEL creep noted. There is an additional culture from 03/21/24 that is pending, has been sent to [facility] for further work up. 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 Desensitized to omadacycline-tolerating well Current regimen: Clofazimine 100mg daily Omadacycline 300mg daily Imipenem 1g q12hrs IV amikacin 900mg three times a week, with peaks around 30 to 35 Spoke over the phone to [facility] ID, they agree with our plan. Additional Isolate has been sent to [facility]/, lab of and for additional synergy [...] Subjective History of Present Illness: She was [facility] from 05/02/2024 to 05/13/2024. I had discussed with patient's plastic surgeon Dr. Gross that I was concerned about her left chest port and her continuing wound from the left breast area. After her appointment with me patient had sent in pictures of the wound dehiscing. I forwarded these pictures and my concerns to Dr. Gross's office who promptly had patient admitted to [facility] for left Mediport removal and additional debridement. While there she was continued on her IV amikacin, p.o. tedizolid, and oral clofazimine. She is initially receiving clofazimine at a lower dose of 50 mg however this was later corrected and she received her appropriate dose o (more content not included)... [facility] 08-12-2024 Miscellaneous Notes Jared from [facility] called to say patient was positive for AFB and he sent it out. Message sent to Dr. Poole documented in this encounter [facility] 08-12-2024 Telephone encounter Note Jared from [facility] called to say patient was positive for AFB and he sent it out. [facility] 08-12-2024 Telephone encounter Note Message sent to Dr. Poole [facility] 08-10-2024 History of Present illness Narrative [...] right breast of female, estrogen receptor positive ([facility]) -continue follow-up with Oncology both locally and at F documented in this encounter [facility] 08-10-2024 Instructions Formatting of th is note might be different from the original. Your surgery/procedure is scheduled at [facility] on 08/12/24 at 8:00 Arrival Time 6:00 [facility] Address: [address] [place] [address], [address] Park in the Emergency Center Parking lot. Report to the motel front desk attendant in the Emergency/Surgery Registration lobby of the hospital. Notify your SURGEON if you develop any illness such as a cold, cough, fever, sore throat, vomiting or are hospitalized between now and your surgery. Please call Pre-Admission Clinic at [phone] if you have any questions prior to surgery. For questions the morning of surgery, call the Pre-op Department at [phone]. Medication Instructions (Do not stop your medications [...] would like to schedule therapy at a [facility] facility, please call [phone] ([phone]). Do not use lotions, creams, powders, perfume, make up, cologne or after-shaves day of surgery. Remove ALL jewelry including wedding rings, body piercings, hair extensions that contain metal, nail fijian, make-up, and contact lens. You may brush [...] pets in your bed. Please be advised, [facility] has transitioned to a cashless payment [...] RIGHTS AND RESPONSIBILITIES As a patient at [facility], you have the right to: Receive medical care and be informed of who is taking care of you Be treated with dignity and respect Have a family member/u.s. representative of choice and your physician notified [...] of hospital charges and payment methods Patient/patient u.s. representative responsibilities are to: Provide information about health status to facilitate care, treatment and services Follow the treatment, plan, keep appointments and speak up when you do not understand the plan Respect the rights of other patients and healthcare personnel Follow organizational rules and regulations that support quality care and a safe environment Fulfill financial obligations as promptly as possible [facility] 08-10-2024 Miscellaneous Notes Your surgery/procedure is scheduled at [facility] on 08/12/24 at 8:00 Arrival Time 6:00 [facility] Address: [address] [place] [address], [facility], [address] Park in the Emergency Center Parking lot. Report to the motel front desk attendant in the Emergency/Surgery Registration lobby of the hospital. Notify your SURGEON if you develop any illness such as a cold, cough, fever, sore throat, vomiting or are hospitalized between now and your surgery. Please call Pre-Admission Clinic at [phone] if you have any questions prior to surgery. For questions the morning of surgery, call the Pre-op Department at [phone]. Medication Instructions (Do not stop your medications [...] during surgery If you have been assigned MAROC Education by your surgeon's office, please complete this education prior to your surgery. For questions regarding MARCO education, reach out to your surgeons office. If you have been given a prescription for occupational, physical or speech therapy, please set up these appointments before your procedure. If you would like to schedule therapy at a [facility] facility, please call [phone] ([phone]). Do not use lotions, creams, powders, perfume, make up, cologne or after-shaves day of surgery. Remove ALL jewelry including wedding rings, body piercings, hair extensions that contain metal, nail fijian, make-up, and contact lens. You may brush [...] pets in your bed. Please be advised, [facility] has transitioned to a cashless payment [...] RIGHTS AND RESPONSIBILITIES As a patient at [facility], you have the right to: Receive medical care and be informed of who is taking care of you Be treated with dignity and respect Have a family member/u.s. representative of choice and your physician notified [...] of hospital charges and payment methods Patient/patient u.s. representative responsibilities are to: Provide information about [...] promptly as possible documented in this encounter [facility] 08-09-2024 Miscellaneous Notes LEFT VOICEMAIL SURGERY SCHEDULED 08/12 AT 8AM, ARRIVE AT 6AM. NPO 8HRS PRIOR. documented in this encounter [facility] 08-09-2024 Telephone encounter Note LEFT VOICEMAIL SURGERY SCHEDULED 08/12 AT 8AM, ARRIVE AT 6AM. NPO 8HRS PRIOR. [facility] 08-08-2024 History of Present illness Narrative Images from the original note were not included. [facility] [address] Office Jhon Gross MD, PhD Marisela Cuevas, WEB DEVELOPMENT INSTRUCTOR-ESPERANZA Smallwood PA-C Plastic Surgery Progress Note Reason for visit : post-op History of present illness: Ike Flannery is a 53 y.o. female with a history of right breast cancer status post bilateral skin sparing mastectomies (He) and tissue equine science instructor reconstruction in 10/28/2023. Her postoperative course was complicated by an infected seroma of her left breast requiring operative washout and tissue equine science instructor removal 11/27/23. Intraoperative cultures demonstrated growth of [...] to ensure the accuracy of this automated mft, some errors in mft may have occurred. Shereen Smallwood PA-C 08/29/24 1141 documented in this encounter [facility] 08-04-2024 History of Present illness Narrative Updated wound care orders sent to [facility] wound care at [phone] INÉS PAYNE PA-C 08/04/24 1556 documented in this encounter [facility] 08-03-2024 History of Present illness Narrative Images from the original note were not included. [facility] [address] [facility] Office Jhon Gross MD, PhD Marisela Cuevas, WEB DEVELOPMENT INSTRUCTOR-DIAL SCREW ASSEMBLER Shereen Smallwood PA-C Plastic Surgery Progress Note Reason for visit : post-op History of present illness:Ike Flannery is a 53 y.o. female with a history of right breast cancer status post bilateral skin sparing mastectomies (He) and tissue equine science instructor reconstruction in 10/28/2023. Her postoperative course was complicated by an infected seroma of her left breast requiring operative washout and tissue equine science instructor removal 11/27/23. Intraoperative cultures demonstrated growth of [...] this note were generated using voice recognition [employer] dictation software. Although every effort was made to ensure the accuracy of this automated mft, some errors in mft may have occurred. Shereen Smallwood PA-C 08/29/24 1144 [facility]-27[facility] History of Present illness Narrative The patient was recently diagnosed with metastatic breast cancer to the liver and a started treatment with Medical Oncology at [facility], we discussed in detail that this pelvic [...] future treatment planning. documented in this encounter [facility] 07-22-2024 Telephone encounter Note Contacted patient via [...] with recommendations once known. Saman Joe RN [facility] Work Phone: 07-22-2024 Miscellaneous Notes Contacted patient [...] is calling Bobby Christy MD today regarding Education Diagnostician - Other Patient called to let Dr. [...] by name and birthdate. Requesting response back: [phone] (home) [phone] (cell) Karen Mirza July 22, 2024 documented in this encounter [facility] 07-22-2024 Telephone encounter Note Ike Flannery is calling Bobby Christy MD today regarding Education Diagnostician - Other Patient called to let Dr. [...] by name and birthdate. Requesting response back: [phone] (home) [phone] (cell) Karen Mirza July 22, 2024 [facility] 07-21-2024 Note HNO ID: [id number] Author: TOSHA HYDE RN Service: ? Author Type: Registered Nurse Type: Progress Notes Filed: 07/21/2024 16:48 Note Text: Additional intake questions: Has the patient had fever, nausea, vomiting, diarrhea, constipation, fatigue for > 1 week? No Does the patient have a decreased appetite? No Does patient want to see a Laborer Livestock? No (yes to any of above refer [...] Resource Center Electronically Signed By:Tosha Hyde RN [facility] 07-21-2024 Note HNO ID: [id number] Author: BOBBY CHRISTY MD Service: ? Author Type: Physician Type: Progress Notes Filed: 07/21/2024 16:48 Note Text: IDENTIFICATION: Ike Flannery is a 53 year old surgically postmenopausal woman with recent diagnosis of metastatic breast cancer referred by Dr. Aarti Hope for medical oncology consultation. HISTORY OF PRESENT ILLNESS: She was initially diagnosed with a lymph-node positive ER-weakly positive (12-15%), DC-negative, HER2-negative (IHC 0 on core biopsy, 1+ on residual disease at time of mastectomy) right breast cancer in March 2023. She was treated with neoadjuvant chemo-immunotherapy therapy consisting of pemboliziumab with paclitaxel and carboplatin followed by doxorubicin and cyclophosphamide with continuing pembrolizumab then underwent bilateral mastectomy with right axillary dissection and tissue equine science instructor reconstruction at which time there was multifocal residual disease, [id number]. She received adjuvant radiation and initiated adjuvant anastrozole in about January 2024 or March 2024. She was also prescribed adjuvant abemaciclib which she believes she took for only about a week until her course was complicated by an infected seroma requiring removal of the left tissue equine science instructor, mycobacterial infection, and pancytopenia. She had a BMBx in April and is interested in having that reviewed at [facility]. She has been dealing with issues [...] primary that is ER-positive (41-50% weak staining), DC-negative and HER2-negative (IHC 0). PMH: She has a h/o HTN, DVT (on Eliquis); she is s/p hysterectomy and subsequent BSO. FH:She is adopted and family history is not known. 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 She is engaged [...] for transaminase elevations. IMPRESSION: Metastatic ER-weakly positive, DC-negative, HER2-negative breast cancer involving liver with mycobaterium [...] up referral to Dr. Owusu here at [facility]. We discussed potential future treatment options [...] which included preparing to see the patient, [id number] patient care, completing clinical documentation, performing a medically appropriate examination, counseling and educating the patient/family/caregiver, and communicating with other HCPs (not separately reported). Bobby Chrisyt MD CC: Dr. Aarti Hope [facility] 07-19-2024 Note HNO ID: [id number] Author: KRYSTIN BARRAGAN MD Service: ? Author Type: Physician Type: Progress Notes Filed: 07/27/2024 09:06 Note Text: [facility] Ike Flannery is being seen [...] 28/2024 followed by bilateral mastectomy with bilateral equine science instructor placement, complicated by large L side large seroma. - 10/2023 bilateral skin sparing mastectomies and tissue explander reconstruction complicated by infected seroma L side - 11/27/2023 : Left breast IANDD and equine science instructor removal - intra op cx pos for [...] mouth. spironolactone (ALDACTONE) (more content not included)... [facility] 07-19-2024 History of Present illness Narrative INFECTIOUS DISEASES [facility] Ike Flannery is [...] 28/2024 followed by bilateral mastectomy with bilateral equine science instructor placement, complicated by large L side large seroma. - 10/2023 bilateral skin sparing mastectomies and tissue explander reconstruction complicated by infected seroma L side - 11/27/2023 : Left breast I&D and equine science instructor removal - intra op cx pos for [...] 28/2024 followed by bilateral mastectomy with bilateral equine science instructor placement, complicated by large L side large seroma. - 10/2023 bilateral skin sparing mastectomies and tissue explander reconstruction complicated by infected seroma L side - 11/27/2023 : Left breast I&D and equine science instructor removal - intra op cx pos for [...] abscessus again I wound contact Dr Sanchez ([facility] for dual b lactam synergy test) I called Dr Herman Lui at [facility] and discussed plans with him. RTC as needed Krystin Barillas MD documented in this encounter [facility] 07-18-2024 Miscellaneous Notes Spoke to patient Surgery time change on 07/21. Pt stated that she cannot do this due to her having an appointment at [facility] for her bladder cancer. PT stated that she was wondering if she even actually needed surgery because she thinks her breast is looking better and feeling better. Pt is going to send pictures through [employer] and I told her I would be sending the pictures to Dr. Gross as well. documented in this encounter [facility] 07-18-2024 Telephone encounter Note Spoke to patient Surgery time change on 07/21. Pt stated that she cannot do this due to her having an appointment at [facility] for her bladder cancer. PT stated that she was wondering if she even actually needed surgery because she thinks her breast is looking better and feeling better. Pt is going to send pictures through [employer] and I told her I would be sending the pictures to Dr. Gross as well. [facility] 07-15-2024 Instructions Formatting of th is note might be different from the original. Your surgery/procedure is scheduled at [facility] on 07-19-24 at 4:15 pm Arrival Time 2:15 pm [facility] Address: [address] [place] [address], [address] Park in the Emergency Center Parking lot. Report to the motel front desk attendant in the Emergency/Surgery Registration lobby of the hospital. Notify your SURGEON if you develop any illness such as a cold, cough, fever, sore throat, vomiting or are hospitalized between now and your surgery. Please call Pre-Admission Clinic at [phone] if you have any questions prior to surgery. For questions the morning of surgery, call the Pre-op Department at [phone]. Medication Instructions (Do not stop your medications [...] would like to schedule therapy at a [facility] facility, please call [phone] ([phone]). Do not use lotions, creams, powders, perfume, make up, cologne or after-shaves day of surgery. Remove ALL jewelry including wedding rings, body piercings, hair extensions that contain metal, nail fijian, make-up, and contact lens. You may brush your teeth the morning of surgery, but do not swallow the water. Wear your dentures and partial plates to the hospital (no adhesive). Shower the night the before and morning of surgery with an antibacterial soap. Please be advised, [facility] has transitioned to a cashless payment [...] RIGHTS AND RESPONSIBILITIES As a patient at [facility], you have the right to: Receive medical care and be informed of who is taking care of you Be treated with dignity and respect Have a family member/u.s. representative of choice and your physician notified [...] of hospital charges and payment methods Patient/patient u.s. representative responsibilities are to: Provide information about health status to facilitate care, treatment and services Follow the treatment, plan, keep appointments and speak up when you do not understand the plan Respect the rights of other patients and healthcare personnel Follow organizational rules and regulations that support quality care and a safe environment Fulfill financial obligations as promptly as possible [facility] 07-15-2024 Miscellaneous Notes Your surgery/procedure is scheduled at [facility] on 07-19-24 at 4:15 pm Arrival Time 2:15 pm [facility] Address: [address] [place] [address], [address] Park in the Emergency Center Parking lot. Report to the motel front desk attendant in the Emergency/Surgery Registration lobby of the hospital. Notify your SURGEON if you develop any illness such as a cold, cough, fever, sore throat, vomiting or are hospitalized between now and your surgery. Please call Pre-Admission Clinic at [phone] if you have any questions prior to surgery. For questions the morning of surgery, call the Pre-op Department at [phone]. Medication Instructions (Do not stop your medications [...] would like to schedule therapy at a [facility] facility, please call [phone] ([phone]). Do not use lotions, creams, powders, perfume, make up, cologne or after-shaves day of surgery. Remove ALL jewelry including wedding rings, body piercings, hair extensions that contain metal, nail fijian, make-up, and contact lens. You may brush your teeth the morning of surgery, but do not swallow the water. Wear your dentures and partial plates to the hospital (no adhesive). Shower the night the before and morning of surgery with an antibacterial soap. Please be advised, [facility] has transitioned to a cashless payment system. [...] RIGHTS AND RESPONSIBILITIES As a patient at [facility], you have the right to: Receive medical care and be informed of who is taking care of you Be treated with dignity and respect Have a family member/u.s. representative of choice and your physician notified [...] of hospital charges and payment methods Patient/patient u.s. representative responsibilities are to: Provide information about [...] promptly as possible documented in this encounter [facility] 07-14-2024 History of Present illness Narrative [address] [facility] [address] Patient: Ike Flannery Date of : 1970 [...] oncologist wants her to see [facility] Infectious Disease team that specializes in mycobacteria. She is undecided regarding this. She is under a high amount of stress with all of this complicated personal medical history as well as her brother recently committed suicide. Her mother has recently fallen at buddhist and developed a CVA and now lives with both her and her partner. 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 Past Medical History: Diagnosis Date MIRNA (acute kidney injury) from vancomycin Breast cancer ([facility]) 2023 mammary carcinoma Breast wound left Deep vein thrombosis ([facility]) 09/18/2023 Left calf Dental disease one permanent [...] 02/26/2024 Performed by Jhon Gross MD at [facility] DEBRIDEMENT OF LEFT CEST WALL WOUND Left 05/04/2024 Performed by Jhon Gross MD at [facility] EXCISION LYMPH NODE AXILLARY DISSECTION Right 10/28/2023 Performed by Christy He MD at [facility] EXCISION OF REDUNDANT INFECTED LEFT CHEST WALL TISSUE WITH PRIMARY CLOSURE Left 03/21/2024 Performed by Jhon Gross MD at [facility] HYSTERECTOMY 2006 IMMEDIATE BREAST RECONSTRUCTION WITH TISSUE RN CRITICAL CARE PLACEMENT Bilateral 10/28/2023 Performed by Jhon Gross MD at [facility] INCISION AND DRAINAGE/DEBRIDEMENT OF LEFT BREAST WOUND Left 05/02/2024 Performed by Jhon Gross MD at [facility] INCISION DRAINAGE BREAST Left 11/27/2023 Performed by Jhon Gross MD at [facility] INCISION DRAINAGE BREAST (WASHOUT) Left 02/26/2024 Performed by Jhon Gross MD at [facility] INCISION DRAINAGE CHEST WALL INFECTION Left 06/13/2024 Performed by Jhon Gross MD at [facility] LIVER BIOPSY 07/11/2024 IR MAGNETIC SEED LOCALIZATION EXCISION/BIOPSY MASS BREAST (MAG SEED LOCALIZED TARGETED DISSECTION FOR RETRIEVAL OF PREVIOUSLY CLIPPED LYMPH NODE) Right 10/28/2023 Performed by Christy He MD at [facility] MASTECTOMY BREAST SIMPLE RISK REDUCING SKIN SPARING Left 10/28/2023 Performed by Christy He MD at [facility] MASTECTOMY BREAST SIMPLE SKIN SPARING Right 10/28/2023 Performed by Christy He MD at [facility] MENISCECTOMY Bilateral 2022 PORTACATH PLACEMENT Left left chest REMOVAL RN CRITICAL CARE TISSUE BREAST Left 11/27/2023 Performed by Jhon Gross MD at [facility] REMOVAL PORT A CATH Left 05/02/2024 Performed by Jhon Gross MD at [facility] RIGHT AXILLARY PROPHYLACTIC BYPASS LYMPHOVENOUS Right 10/28/2023 Performed by Jhon Gross MD at [facility] TONSILLECTOMY AND ADENOIDECTOMY Age 3 [...] right breast of female, estrogen receptor positive ([facility]) Mycobacterium abscessus infection Essential hypertension Acute deep vein thrombosis (DVT) of calf muscle vein of left lower extremity ([facility]) S/P right heart catheterization Other orders - [...] APRN-CNP 07/18/24 1018 documented in this encounter [facility] 07-13-2024 Miscellaneous Notes SPOKE WITH PATIENT Pt aware of surgery on 07/19 at PAT phone call on 07/15 documented in this encounter [facility] 07-13-2024 Telephone encounter Note SPOKE WITH PATIENT Pt aware of surgery on 07/19 at PAT phone call on 07/15 [facility] 07-11-2024 Miscellaneous Notes Called patient. Let her know Dr. Gross's recommendations of debridement of left breast wound this week under MAC. She is agreeable. Discussed our equipment scheduler will reach out to her with date and time. documented in this encounter [facility] 07-11-2024 Telephone encounter Note Called patient. Let her know Dr. Gross's recommendations of debridement of left breast wound this week under MAC. She is agreeable. Discussed our equipment scheduler will reach out to her with date and time. [facility] Work Phone: 07-11-2024 History of Present illness Narrative Images from the original note were not included. [facility] [address] Office Jhon Gross MD, PhD AMEENA Kennedy PA-C Plastic Surgery Progress Note Reason for visit : post-op History of present illness: Ike Flannery is a 53 y.o. female with a history of right breast cancer status post bilateral skin sparing mastectomies (He) and tissue equine science instructor reconstruction in 10/28/2023. Her postoperative course was complicated by an infected seroma of her left breast requiring operative washout and tissue equine science instructor removal 11/27/23. Intraoperative cultures demonstrated growth of [...] liver lesion. She is awaiting consult at [facility] for IR guided biopsy as well as consult at the mycobacterium clinic at [facility]. She presents to the office today [...] Focused examination : Left chest wound present. [place] granulation tissue present. Wound is 14 cm [...] does have follow-up scheduled on Thursday with [facility]. Continue with that scheduled appointment. Continue to monitor for any sign of infection. Follow up with our office next week for clinical check. Advised to call the office any questions or concerns in the interim. Please note that portions of this note were generated using voice recognition [employer] dictation software. Although every effort was made to ensure the accuracy of this automated mft, some errors in mft may have occurred. AMEENA Kennedy 07/11/24 1639 documented in this encounter [facility] 06-30-2024 Note Division of Infectio us Diseases [...] Consent signed and reviewed with Avi Tobar, [facility], patient and myself. 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 Clofazimine JOSÉ MIGUEL remains <= 0.5 Imipenem remains at JOSÉ MIGUEL of 16 No JOSÉ MIGUEL creep noted. There is an additional culture from 03/21/24 that is pending, has been sent to [facility] for further work up. 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 Subjective History of Present Illness: She was [facility] from 05/02 to 05/13. I had discussed with patient's plastic surgeon Dr. Gross that I was concerned about her left chest port and her continuing wound from the left breast area. After her appointment with me patient had sent in pictures of the wound dehiscing. I forwarded these pictures and my concerns to Dr. Gross's office who promptly had patient admitted to [facility] for left Mediport removal and additional [...] I discussed with the ID pharmacist at [facility] [place] tedizolid was discontinued and ceftaroline 600 mg [...] for a f (more content not included)... [facility] 06-30-2024 Note On 06/29/24, under th e advice of Dr. Herman Lui, I called [facility] Microbiology Laboratory. Spoke to laboratory animal facility supervisor working at [facility] [employer] [facility] bench and clarified that Fungal Culture of Tissue Left Breast (collected date 06/13/24) ordered by plastic surgeon Dr. 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 Since imipenem/cilastatin and clofazimine MICs must be monitored and trended, I requested the [facility] laboratory to send the Fungal Culture to [facility], and the lab confirmed that they would do so. Anticipate that preliminary culture results (at least line probe assay findings, which may include if there are aminoglycoside drug resistance markers) may be available in a few weeks. Follow up will be needed as appropriate to obtain these preliminary results and then the finalized susceptibilities. Avi Tobar, PharmD, BCPS; Clinical Research Pharmacist [facility] 06-30-2024 Note [phone] Alma DeliaTheresa maurikaren Yumi 1970 F Date Provider Department Center 06/30/2024 [id number] TOBAR [facility] Anthony Heal Family History Adopted: Yes Problem Relation Age of Onset Heart attack Father Family Status - Relation Status Age at Father [facility] 06-29-2024 History of Present illness Narrative [facility] [address] Office Jhon Gross MD, PhD Marisela Cuevas, WEB DEVELOPMENT INSTRUCTOR-DIAL SCREW ASSEMBLER Shereen Selin, PA-C Plastic Surgery Progress Note Reason for visit : post-op History of present illness: Ike Flannery is a 53 y.o. female with a history of right breast cancer status post bilateral skin sparing mastectomies (He) and tissue equine science instructor reconstruction in 10/28/2023. Her postoperative course was complicated by an infected seroma of her left breast requiring operative washout and tissue equine science instructor removal 11/27/23. Intraoperative cultures demonstrated growth of [...] liver lesion. She is awaiting consult at [facility] for IR guided biopsy as well as consult at the mycobacterium clinic at [facility]. She presents our office today for [...] cm and approximately 0.5 cm of depth. [place] granulation tissue is present to wound bed. [...] Infectious Disease. She was scheduled follow-up with [facility] regarding her mycobacterium infection. Follow up next week for a clinical check. She was advised to call the office with any questions or concerns in the interim. - AMEENA Rand 06/29/24 4:21 PM Please note that portions of this note were generated using voice recognition [employer] dictation software. Although every effort was made to ensure the accuracy of this automated mft, some errors in mft may have occurred. AMEENA Kennedy 06/29/24 1622 documented in this encounter [facility] 06-29-2024 History of Present illness Narrative She had her most recent PET scan which shows suspicion for persistent disease, she is having a biopsy next week. She also has an appointment with [facility] on the and the with Medical Oncology and Infectious Disease. We discussed following up after those visits to confirm a treatment plan. documented in this encounter [facility] 06-24-2024 Miscellaneous Notes Patient called she wanted to know if you had a chance to talk to dr gross yet if he was going to transfer her care to [facility] yet or not, she said if you had not she was planning to come in and see you on Thursday. If she forgot to mention it. Called patient back. LM for patient. We are still managing the patients wound and breast reconstruction. documented in this encounter [facility] 06-24-2024 Telephone encounter Note Patient called she wanted to know if you had a chance to talk to dr gross yet if he was going to transfer her care to [facility] yet or not, she said if you had not she was planning to come in and see you on Thursday. If she forgot to mention it. [facility] 06-24-2024 Telephone encounter Note Called patient back. LM for patient. We are still managing the patients wound and breast reconstruction. [facility] Work Phone: 06-22-2024 History of Present illness Narrative Images from the original note were not included. [facility] [address] Office Jhon Gross MD, PhD AMEENA Kennedy PA-C Plastic Surgery Progress Note Reason for visit : post-op History of present illness: Ike Flannery is a 53 y.o. female with a history of right breast cancer status post bilateral skin sparing mastectomies (Eh) and tissue equine science instructor reconstruction in 10/28/2023. Her postoperative course was complicated by an infected seroma of her left breast requiring operative washout and tissue equine science instructor removal 11/27/23. Intraoperative cultures demonstrated growth of [...] liver lesion. She is awaiting consult at [facility] for IR guided biopsy as well as consult at the mycobacterium clinic at [facility]. She presents to our office today [...] Disease. She does have consultation scheduled with [facility] bio bacteria clinic scheduled. She also has IR biopsy of her liver lesion scheduled. Follow up next week for wound check. She was advised to call the office any questions or concerns in the interim. - AMEENA Rand 06/22/24 4:36 PM Please note that portions of this note were generated using voice recognition [employer] dictation software. Although every effort was made to ensure the accuracy of this automated mft, some errors in mft may have occurred. MAEENA Kennedy 06/22/24 1636 documented in this encounter [facility] 06-20-2024 Miscellaneous Notes Positive AFB Fungal Culture- Left Breast From June 13, 2024 documented in this encounter [facility] 06-20-2024 Telephone encounter Note Positive AFB Fungal Culture- Left Breast From June 13, 2024 [facility] 06-20-2024 Note HNO ID: [id number] Author: KESHA APPLE MD Service: ? Author Type: Physician Type: Progress Notes Filed: 06/20/2024 16:05 Note Text: Reason for consult: breast infection Referring provider: TATI King, no contact phone number Case reviewed: 53-year-old woman with: # hypertension # chronic anemia # left lower extremity DVT on Eliquis # right breast cancer s/p bilateral skin-sparing mastectomies and tissue equine science instructor reconstruction in 10/2023 (Dr. Jhon Gross), complicated by infected seroma on the left breast s/p tissue equine science instructor explant 11/27/23, OR cx w/ M abscessus, [...] appointment. Kesha Apple MD June 20, 2024 [facility] 06-20-2024 History of Present illness Narrative Reason for consult: breast infection Referring provider: TATI King, no contact phone number Case reviewed: 53-year-old woman with: # hypertension # chronic anemia # left lower extremity DVT on Eliquis # right breast cancer s/p bilateral skin-sparing mastectomies and tissue equine science instructor reconstruction in 10/2023 (Dr. 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 [...] and Other; Plastics *Name of Discharging Facility: [facility], admitted 06/10/24 Date of Facility Discharge: 06/15/24 Date of Interactive Contact and Name of Technical Services Manager: 06/16/24 0998 spoke with patient *Medication Review Completed: No [...] Up Appointments with Providers: Primary: AMEENA GARCIA, [facility] Hospital Follow Up visit scheduled on or before 06/28/24, patient may ask for a telehealth visit Specialty: 06/29/24 [facility] Oncology, Dr. Sepulveda Specialty: 06/20/24 [facility] Infectious Disease:Dr. Moody Specialty: 07/06/24 [facility] IR; IR percutaneous biopsy liver Specialty: [facility] mycobacteria center; referral placed TBD Specialty: 07/12/24 [facility], Oncology Specialty: Plastic surgery, Jhon Gross MD [phone] [phone] Review of Pending Lab/Diagnostic Tests and Plan for Completion: none Assessment and Support of Treatment Regimen Adherence and Medication Management: Automobile Body Repairer spoke with patient for call. Patient talkative and states she is doing okay. Voices she likes all of her present medical providers in the [place] area but understands why she needs to schedule care at the [facility] so all providers are in one health system/team. She reports she has an appointment on 07/12/24 with oncology at the [facility]. She has not heard from [facility] Infectious disease in response to the referral placed during this last hospital visit. Automobile Body Repairer educated patient on the need to schedule a PCP hospital follow up visit. She voices she will see when all the other appointments are scheduled, then decide. Automobile Body Repairer discussed possible telehealth visit with PCP. Patient [...] edema at PICC line site, flushes well. Automobile Body Repairer reviewed new medications. She has no questions on other meds. She reports no issues with constipation, diarrhea or urination. Eating and drinking without issues No N/V. Education Provided by ACN to Support Self-Management, Independent Living and ADLs: Patient lives with gemma. DME-none ADL's-independent Transportation-self if not taking narcotics SDOH: denies needs Automobile Body Repairer instructed patient to contact her PCP office for new, worsening or unresolved symptoms. Automobile Body Repairer instructed patient to call 911 for any chest pain or difficulty breathing. Communication with Home Health Agencies and Other Services Utilized/Needed by the Patient: none [facility] this encounter [facility] 06-16-2024 Telephone encounter Note Please complete TCM call. Thank you [facility] 06-16-2024 Telephone encounter Note Hospital Discharge [...] and Other; Plastics *Name of Discharging Facility: [facility], admitted 06/10/24 Date of Facility Discharge: 06/15/24 Date of Interactive Contact and Name of Technical Services Manager: 06/16/24 [id number] spoke with patient *Medication Review Completed: No [...] Up Appointments with Providers: Primary: AMEENA GARCIA, [facility] Follow Up visit scheduled on or before 06/28/24, patient may ask for a telehealth visit Specialty: 06/29/24 [facility] Oncology, Dr. Sepulveda Specialty: 06/20/24 [facility] Infectious Disease:Dr. Moody Specialty: 07/06/24 [facility] IR; IR percutaneous biopsy liver Specialty: [facility] center; referral placed TBD Specialty: 07/12/24 [facility], Oncology Specialty: Plastic surgery, Jhno Gross MD [phone] [phone] Review of Pending Lab/Diagnostic Tests and Plan for Completion: none Assessment and Support of Treatment Regimen Adherence and Medication Management: Automobile Body Repairer spoke with patient for call. Patient talkative and states she is doing okay. Voices she likes all of her present medical providers in the [place] area but understands why she needs to schedule care at the [facility] so all providers are in one health system/team. She reports she has an appointment on 07/12/24 with oncology at the [facility]. She has not heard from [facility] Infectious disease in response to the referral placed during this last hospital visit. Automobile Body Repairer educated patient on the need to schedule a PCP hospital follow up visit. She voices she will see when all the other appointments are scheduled, then decide. Automobile Body Repairer discussed possible telehealth visit with PCP. Patient stated an understanding. Patient's reports her and her fitorrey perform BID would care to left chest [...] edema at PICC line site, flushes well. Automobile Body Repairer reviewed new medications. She has no questions on other meds. She reports no issues with constipation, diarrhea or urination. Eating and drinking without issues No N/V. Education Provided by ACN to Support Self-Management, Independent Living and ADLs: Patient lives with gemma. DME-none ADL's-independent Transportation-self if not taking narcotics SDOH: denies needs Automobile Body Repairer instructed patient to contact her PCP office for new, worsening or unresolved symptoms. Automobile Body Repairer instructed patient to call 911 for any chest pain or difficulty breathing. Communication with Home Health Agencies and Other Services Utilized/Needed by the Patient: none [facility] 06-10-2024 Miscellaneous Notes Contract: [id number] Left Breast Problem redness, hot to touch tender Call was connected to Dr Gross cell documented in this encounter [facility] 06-10-2024 Telephone encounter Note Contract: [address] Gross Left Breast Problem redness, hot to touch tender [facility] 06-10-2024 Telephone encounter Note Call was connected to Dr Gross cell [facility] 06-08-2024 History of Present illness Narrative Images from the original note were not included. [facility] [address] Office Jhon Gross MD, PhD Marisela Cuevas APRN-ESPERANZA Smallwood PA-C Plastic Surgery Progress Note Reason for visit : post-op History of present illness: Ike Flannery is a 53 y.o. female with a history of right breast cancer status post bilateral skin sparing mastectomies (Dr. He) and tissue equine science instructor reconstruction (10/28/2023). Her postoperative course was complicated by an infected seroma of her left breast requiring operative washout and tissue equine science instructor removal on 11/27/23. Intraoperative cultures demonstrated growth [...] was advised to contact ID team at [facility] to notify them and seek guidance [...] PA-C 06/13/24 1724 documented in this encounter [facility] 06-08-2024 History of Present illness Narrative Called [...] as reviewing images. documented in this encounter [facility] 06-03-2024 Nuclear medicine Diagnostic study note [facility] [place] [address] Nuclear Medicine Report Signed Patient: Ike Flannery MR#: [id number] : 1970 Acct:[id number] Age/Sex: 53 / F ADM Date: 5 Loc: Room: Type: [facility] [address] Attending Dr: Aarti Hope MD Copies to: [...] Fortino Tate M.D.06/03/2024 12:40 PM Dictation Location: [place] [address] Transcribed By: [facility] 06/03/24 1240 Dictated By: Fortino Tate MD 06/03/24 1216 Signed By: 06/03/24 1240 [facility] Work Phone: 06-01-2024 Miscellaneous Notes Called patient to let her know I spoke with Shereen regarding her previous wound care plans. Given how well the wound is healing and that it is almost superficial in depth we will continue with BID wet to dry dressing changes. Patient verbalized an understanding. documented in this encounter [employer] 06-01-2024 Telephone encounter Note Called patient to let her know I spoke with Shereen regarding her previous wound care plans. Given how well the wound is healing and that it is almost superficial in depth we will continue with BID wet to dry dressing changes. Patient verbalized an understanding. [employer] [facility] Work Phone: 06-01-2024 Note Allergy list updated based on desensitization done on 06/01/24. [facility] 06-01-2024 Note Patient states she h as [...] to 3 weeks. Will let pharmacy know [facility] 06-01-2024 History of Present illness Narrative Reason [...] nursing note reviewed. Exam conducted with a carpentry professional present. Vitals: Estimated body mass index is [...] Evan Thompson DO documented in this encounter [facility] 06-01-2024 History of Present illness Narrative [facility] [address] Office Jhon Gross MD, PhD Marisela Cuevas, WEB DEVELOPMENT INSTRUCTOR-DIAL SCREW ASSEMBLER Shereen Smallwood PA-C Plastic Surgery Progress Note Reason for visit : post-op History of present illness: Ike Flannery is a 53 y.o. female with a history of ght breast cancer status post bilateral skin sparing mastectomies (He) and tissue equine science instructor reconstruction in 10/28/2023. Her postoperative course was complicated by an infected seroma of her left breast requiring operative washout and tissue equine science instructor removal 11/27/23. Intraoperative cultures demonstrated growth of [...] have a wound VAC while admitted to [facility]. She states that her insurance declined wound VAC applications. We can attempt to obtain insurance approval for [facility] wound VAC. follow up next week for clinical check. She was advised to call the office any questions or concerns in the interim. - AMEENA Rand 06/01/24 10:45 AM Please note that portions of this note were generated using voice recognition [employer] dictation software. Although every effort was made to ensure the accuracy of this automated mft, some errors in mft may have occurred. AMEENA Kennedy 06/01/24 1046 documented in this encounter [facility] 05-31-2024 Note Subjective Patient ID: Tia Eason Widman is a 53 y.o. female. Chief Complaint: [...] put her on omadacycline. Doxycycline allergy Tia A Widman is here for evaluation of Doxycycline allergy. [...] For all tetracyclines, most hypersensitivity reactions are [id number]. Nonetheless, IgE-mediated reactions do occur, and anaphylaxis [...] negative skin test (more content not included)... [facility] 05-30-2024 Note Microbiology PROCEDURE: Blood Culture Charcoal [R1] SOURCE: Blood BODY SITE: Chest COLLECTED DATE/TIME: 05/22/2024 20:14 EDT RECEIVED DATE/TIME: 05/22/2024 20:36 EDT START DATE/TIME: 05/22/2024 20:37 EDT FREE TEXT SOURCE: VANESSA Deleon PA-C, Benji Heard. Pancho CONTE, Benji Heard. FINAL REPORTS Final Report [] Verified Date/Time: 05/29/2024 21:00 EDT No growth at 7 days. Performing Locations R1: This test was performed at: [facility], [address] [place] [address], [address] [place] [address], [phone] [place] [address] Comment on above: Performed By: #### 1 [id number] #### [facility] [address] [place] [id number] 05-30-2024 Note Microbiology PROCEDURE: Blood Culture Charcoal [R1] SOURCE: Blood BODY SITE: Hand L COLLECTED DATE/TIME: 05/22/2024 21:00 EDT RECEIVED DATE/TIME: 05/22/2024 21:17 EDT START DATE/TIME: 05/22/2024 21:17 EDT FREE TEXT SOURCE: Benji Deleon PA-C. Benji Deleon PA-C. FINAL REPORTS Final Report [] Verified Date/Time: 05/30/2024 00:00 EDT No growth at 7 days. Performing Locations R1: This test was performed at: [facility], [address] [place] [address], [address] [place] [address] Comment on above: Performed By: #### 1 [id number] #### [facility] [address] [place] [id number] 05-29-2024 Note Microbiology PROCEDURE: Blood Culture Charcoal [R1] SOURCE: Blood BODY SITE: Chest COLLECTED DATE/TIME: 05/22/2024 20:14 EDT RECEIVED DATE/TIME: 05/22/2024 20:36 EDT START DATE/TIME: 05/22/2024 20:37 EDT FREE TEXT SOURCE: Benji Deleon PA-C. Benji Deleon PA-C. FINAL REPORTS Final Report [] Verified Date/Time: 05/29/2024 21:00 EDT No growth at 7 days. Performing Locations R1: This [facility] performed at[facility], [address] [place] [address], [phone] Comment on above: Performed By: #### 1 [id number] #### [facility] [address] [place] [address] 05-27-2024 Note 05/27/24 1627 Admission Assessment Questions Verify insurance with patient Yes ([employer] Medicaid) Do you understand medical disease or [...] Status Interested Does the patient have a shoe caser assigned to them through their insurance? [...] discharge in progress: return Home w/ gemma. AGUSTÍN [place] to be delivered to Home, W->D dressing changes until then. [employer] to provide Amikacin 3x/wk+Imipenem-Cilastatin q12 hr (pt to administer). Pt to follow-up @ [facility] for wound care & application of Wound Vac after delivered. Pt to follow-up with [facility] on June 01 @ 9am. [facility] 05-27-2024 Note Hospital Medicine Discharge Summary Final [...] ceftaroline. She follows up with Dr. Lui ([place] ID). Patient presented to the emergency department [...] Admission: None Consultations During Admission: Infectious Disease Dearadha Calle MD, Ike Weber is advised to follow up with you within 1-2 weeks. Items to follow up in ambulatory setting: None Follow-up with: Infectious Disease Scheduled appointments: Future Appointments Date Time Provider Department Center 06/08/2024 8:40 AM Juhi Atwood MD [facility] Powell 06/22/2024 2:30 PM Jossy Moody MD [facility] Anthony Heal Your medication list START [...] 7-7-1.5 gram powder in packet Generic drug: xyycknlu-aykfsakln-zgoakdk [facility] magnesium oxide 400 mg tablet Commonly [...] These medications were sent to The [facility] - [place], [place] - [address] [place] [address] [place] [address], [facility] [address] ferrous sulfate 325 (65 Fe) MG tablet Ike Weber is allergic to ceftaroline fosamil, meperidine, adhesive tape-silicones, daptomycin, tigecycline, vancomycin, and doxycycline. Disposition: Home-Health Care [facility] (06) Discharge Condition: Stable Code Status: Full Code Diagnostic Results (more content not included)... [facility] 05-27-2024 Note Patient name: Samantha Flannery Date of : 1970 Admission date: 05/23/2024 ANTIBIOTIC ORDERS Infectious Diseases Diagnosis for antibiotic management: NTM Name/dosing/frequency of antibiotic: imipenem, amikacin, cloafazime Continue antibiotics through: for 6 months LABORATORY ORDERS: as per previous outpatient orders CONTACT NUMBERS For all questions call: [phone] IV ACCESS: PICC OK to draw blood [...] has been explained to the patient: Yes [facility] 05-27-2024 Note The patient is a due for a refill. PA renewal needed. Submit urgently. The medication has already been ordered in. Alexus Kaiden [facility] 11/01/24 4:21 PM [facility] 05-27-2024 Note PA states cancelled in CMMs. However, the claim pays for $0. Deborah Ramires PharmD, LUCIACP 06/27/24 2:32 PM [facility] [phone] [facility] 05-27-2024 Note PA was only approved for [...] Deborah Ramires PharmD, LUCIACP 06/24/24 12:48 PM [facility] [phone] [facility] 05-27-2024 Note We received a new pr escription for Nuzyra and is requiring a PA. Kam Alfaro, [facility] 05/27/24 12:39 PM [facility] 05-27-2024 Note Prior Authorization for Nuzyra has been approved 11/02/2024-11/01/2025. Case ID/Authorization Number: [id number] [x] Tracking Spreadsheet [x] PA Expiration Spreadsheet [x] Archived in [facility] She would like us to mail the med out to her tomorrow. Pooja Morelos, [facility] 11/02/24 1:52 PM [facility] 05-27-2024 Note An urgent prior auth orization renewal has been submitted via [facility] and we are waiting on a determination. Alexus Kaiden [facility] 11/02/24 9:04 AM [facility] 05-27-2024 Note Refill call complete dStarr Galarza, [facility] 08/31/24 11:40 AM [facility] 05-27-2024 Note PA Approved through 06/25/2024. $0 copay. Called Avi Tobar ([phone]) to notify her of PA approval. Andree Ryan, SukiD Outpatient Clinical Pharmacist [facility] [phone] 05/30/24 8:36 AM [facility] 05-27-2024 Note Specialty Pharmacy N ote: Nuzyra Supervising Physician & Clinic:?? Scott Baldwin, infectious disease Ike Flannery is a 53 [...] tools were consulted for this evaluation: [x] [employer] Drug Information [] UpToDate Clinical Resource [] Clinical Pharmacology [x] FDA [...] try to call. Submitted urgent PA in [facility]. When PA results call Avi Tobar ([phone]) with result. Opal Leo, PharmD 05/27/24 1:40 PM [facility] 05-27-2024 Note Infectious Diseases - Inpatient daily [...] strength and sen (more content not included)... [facility] 05-27-2024 Note Pharmacy Dosing Serv ice - [...] outpatient at patient's convenience -Check BUN/SCr daily [facility] 05-27-2024 Note Recevied emailed wou nd vac form from [facility] office at 5:54pm yesterday. Submitting to [employer] for Ready vac. DC orders placed yesterday evening. Await wound vac insurance approval. Submitted for [facility] ready vac. Sent referral to Norah, pt needs more double lumen picc line extentions. Await ready vac approval. Uploaded documents to [employer]. Await insurance approval. Phoned [facility] liaison/Anabela to check on [facility] ready vac approval, await call back with update. Sent scripts to [employer] to arrange a delivery time with pt. Anabela will call back in 20-30 minutes with an update, [facility] rep is now reviewing vac order. Pt's insurance requires 30 days consecutive dressing changes before authorizing wound vac. Wound was surgically created on 05/04/2024. Phoned Shereen/TATI @ plastic surgery clinic and she wants pt to continue wet to dry twice a day and she will see pt on Thursday for her appointment. Phoned Anabela at [facility] and changed vac order to home delivery when insurance approved. Updated pt's RN Itzel, pt due for dressing change today. Discussed DC IV ATB with ID and [employer] is delivering to pt's home at 5pm. [facility] 05-26-2024 Note -Continue with Keron Zamudio [facility] 05-26-2024 Note - Currently on amika jarvis, clofazimine, primaxin. discussed with ID, we will be discontinuing ceftaroline due to the reaction that she is experiencing. plan to arrange for follow-up with allergy given her history of physical cyclin allergy and her need for the doxycycline, She is scheduled 05/31/24. [facility] 05-26-2024 Note -Baseline, continue monitoring. [facility] 05-26-2024 Note -Left side - Arranging for wound VAC as an outpatient. [facility] 05-26-2024 Note -Status post mastect donis, she follow-up with oncology as an outpatient. [facility] 05-26-2024 Note -Monitor and replace accordingly [facility] 05-26-2024 Note -Controlled, continue monitoring . [facility] 05-26-2024 Note -No signs of overt b leeding. Continue monitoring. [facility] 05-26-2024 Note - Antibiotics as above. [facility] 05-26-2024 Note Hospital Medicine Daily Progress Note - 05/26/2024 4:40 PM; Room: [address] [place] [address] Admission: 05/23/2024 4:20 PM; Length of stay: 3 days THE HOSPITALIST TEAM PREFERS TO USE REPP CHAT FOR NON-URGENT COMMUNICATION 7AM-7PM. IF I DO NOT RESPOND WITHIN 20 MINUTES OR URGENT MATTERS, PLEASE CALL THROUGH THE SENIOR COURTROOM CLERK. FROM 7PM-7AM, PLEASE PAGE [phone](COVR). Code Status: Full Code Barriers to Discharge: wound VAC arrangement Expected Discharge Date: in a.m. Discharge Destination: home Overview Patient is seen for evaluation and management of chest wall infection. 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 Patient presented to [facility] ED due to fever of 102. [...] , FREET4 , CORTISOL , FEV1 , GRA0GKV , DLCO , RVSP , HDL , LDL No results found for: [id number] , IRON , TIBC , C3 , [...] to hepatic steatosi (more content not included)... 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 Referral Reason Follow up;Information Patient Information Primary Caregiver Self Activities of Daily Living Assistive Device Not applicable Ambulation Independent Dressing Independent Feeding Independent Behavior Oriented Communication Talks;Understands speaking;Understands Gren[place] Discharge Planning Living Arrangements Spouse/significant other;Parent (with fitorrey and elderly mother) Support Systems Spouse/significant other;Parent Type of Residence Private residence Post Acute Services Other (Comment) (needs wound vac & outpt dressing changes@[facility]) Patient's goal for discharge Home with wound vac and outpt dressing changes Does the patient need discharge transport arranged? No (Gemma) Met with pt to follow up with DC planning. Pt reported she is going to the [facility] for twice a week dressing changes. Phoned Carla DAVENPORT at [facility] [phone], left message. Spoke with Carla, she will send wound vac form via email. Will follow with [facility] express ready vac referral for insurance auth. Carla confirmed pt will follow with twice a week dressing changes at [facility] for wound vac upon DC. And once a week visits to [facility] clinic. [facility] 05-26-2024 Note Infectious Diseases - Inpatient daily [...] and Clofazimine. We have reached out to [facility] in consultation for treatment of her mycobacterium. [...] mmol/L 110* 105 106 102 CO2 mmol/L 25 BUN mg/dL 7 8 9 9 CREATININE mg/dL 0.56* 0.69 0.60 0.73 GLUCOSE mg/dL 79 79 92 103* CALCIUM mg/dL 8.1* 8.0* 8.1* 8.7 ALK PHOS U/L -- -- -- 70 ALT U/L -- -- -- 26 AST U/L -- -- -- 87* Results from last 7 days L (more content not included)... [facility] 05-26-2024 Note Pharmacy Dosing Serv ice - [...] (random with AM labs) -Check BUN/SCr daily [facility] 05-25-2024 Note -Source is likely th e chest wall wound. 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 -Infectious disease on board, currently on amikacin, ceftaroline, imipenem-cilastatin -Vascular wound care consulted [facility] 05-25-2024 Note -Status post mastect donis, she follow-up with oncology as an outpatient. [facility] 05-25-2024 Note -Monitor and replace accordingly [facility] 05-25-2024 Note -No signs of overt b leeding. Continue monitoring. [facility] 05-25-2024 Note -Continue with Keron jim [facility] 05-25-2024 Note -Controlled, continue monitoring . [facility] 05-25-2024 Note -Unclear source of i nfection. 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 [facility] 05-25-2024 Note -Baseline, continue monitoring. [facility] 05-25-2024 Note -Left side, wound care consulted [facility] 05-25-2024 Note Hospital Medicine Daily Progress Note - 05/25/2024 12:36 PM; Room: [address] [place] [address] Admission: 05/23/2024 4:20 PM; Length of stay: 2 days THE HOSPITALIST TEAM PREFERS TO USE REPP CHAT FOR NON-URGENT COMMUNICATION 7AM-7PM. IF I DO NOT RESPOND WITHIN 20 MINUTES OR URGENT MATTERS, PLEASE CALL THROUGH THE SENIOR COURTROOM CLERK. FROM 7PM-7AM, PLEASE PAGE [phone](COVR). Code Status: Full Code Barriers to Discharge: Sepsis rule out, evaluation by infectious disease Expected Discharge Date: 2 to 3 days Discharge Destination: home Overview Patient is seen for evaluation and management of chest wall infection. 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 Patient presented to [facility] ED due to fever of 102. [...] & Plan SIRS (systemic inflammatory response syndrome) ([facility]) -Unclear source of infection. 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 Iron deficiency anemia -No signs of overt bleeding. Continue monitoring. Open wound of chest wall -Left side, wound care consulted Pulmonary hypertension ([facility]) -Baseline, continue monitoring. Mycobacterium abscessus infection -Management as above. Essential (primary) hypertension -Controlled, continue monitoring. Hypokalemia -Monitor and replace accordingly Chronic deep vein thrombosis (DVT) of right lower extremity ([facility]) -Continue with Eliquis VTE Prophylaxis: Eliquis Scheduled [...] CHLORIDE mmol/L 105 106 102 CO2 mmol/L 25 BUN mg/dL 8 9 9 CREATININE [...] , FREET4 , CORTISOL , FEV1 , MJR3CQQ , DLCO , RVSP , HDL , LDL No results found for: [id number] , IRON , TIBC , C3 , [...] duct measures approxi (more content not included)... [facility] 05-25-2024 Note Infectious Diseases - Inpatient daily [...] for component: TOXI (more content not included)... [facility] 05-25-2024 Note Infectious Diseases - Inpatient daily [...] [facility]TP Infectious Diseases Please contact us via [employer] during business hours. If no response in 15 min, call / page through the sewing machine operator Jossy Moody MD [facility] Infectious Diseases [phone] [facility] 05-24-2024 Note [facility] Vascular Surgery/Wound Care CONSULTATION Reason for [...] did have plans to go to both [facility] and [facility] for wound VAC changes. She does have [...] Ada Jacques MD, 2 mg at 05/23/24 2204 amikacin intermittent dosing placeholder, 1 each, Does not apply, RX Placeholder, Alyce Soria, ESPERANZA apixaban (Eliquis) tablet 5 mg, 5 mg, oral, BID, Grace Vivar MD, 5 mg at 05/24/24 1256 crgmedwdfd-iclnwrtelzunb-back 50-325-40 mg per tablet 1 tablet, 1 [...] of education: Not (more content not included)... [facility] 05-24-2024 Note Patient's Own Invest igational Medication This patient is continuing their home investigational medication during this admission. This medication is being used for treatment (expanded access program or compassionate use ) and is NOT research or a clinical trial. Information about https://www.fda.gov/news-events/e xpanded-access/vwnrdrxs-omchpa-pq formation-phys icians The patient's treating physicians (Dr. Josys Moody/Dr. Herman Lui) are aware of the patient???s admission and status and have confirmed they should continue treatment while admitted to the hospital. 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 Bilingual Customer Service (Sponsor-Poultry Dresser): Dr. Herman Lui. *Dr. Jossy Moody is primary contact as of [id number].* Required Current Institutional Review Board Approval: YES, IRB of Record: [facility] IRB Required Current FDA Approval: YES, Single Patient Investigational New Drug Application, IND #[id number] Required Current IRB Approved Informed Consent Form Signed and available in medical records: YES, in Nutrition Consultant Medication Name/Strength/Dosage Form: Clofazimine 50 mg capsule Prescribed label instructions: Take 2 capsules (xbfd=372 mg) by mouth once a day with a high fat meal. Capsules are to be swallowed whole. Storage Conditions: Controlled Room Temperature Dispensing pharmacy: [facility] Investigational Drug Services (Clinical Research Pharmacist) [...] please reach out to Clinical Research Pharmacist Suki PrescottD, [facility] at office phone [phone] (Thursday through Thursday, 07:30 AM to 4 PM). Outside of these hours, please contact the inpatient pharmacy at [phone]. [facility] 05-24-2024 Note Pharmacy Dosing Serv ice - [...] 05/25/24 with AM labs -Check BUN/SCr daily [facility] 05-24-2024 Note -Controlled, continue monitoring . [facility] 05-24-2024 Note -Continue with [facility] 05-24-2024 Note -Monitor and replace accordingly [facility] 05-24-2024 Note -Management as above. [facility] 05-24-2024 Note -Baseline, continue monitoring. [facility] 05-24-2024 Note -No signs of overt b leeding. Continue monitoring. [facility] 05-24-2024 Note -Status post mastect donis, she follow-up with oncology as an outpatient. [facility] 05-24-2024 Note -Left side, management as above. [facility] 05-24-2024 Note Hospital Medicine Daily Progress Note - 05/24/2024 1:12 PM; Room: [address] [place] [address] Admission: 05/23/2024 4:20 PM; Length of stay: 1 days THE HOSPITALIST TEAM PREFERS TO USE [place] [employer] FOR NON-URGENT COMMUNICATION 7AM-7PM. IF I DO NOT RESPOND WITHIN 20 MINUTES OR URGENT MATTERS, PLEASE CALL THROUGH THE SENIOR COURTROOM CLERK. FROM 7PM-7AM, PLEASE PAGE [phone](COVR). Code Status: Full Code Barriers to Discharge: Sepsis rule out, evaluation by infectious disease Expected Discharge Date: 2 to 3 days Discharge Destination: home Overview Patient is seen for evaluation and management of chest wall infection. 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 Patient presented to [facility] ED due to fever of 102. [...] , FREET4 , CORTISOL , FEV1 , FNT5RCU , DLCO , RVSP , HDL , LDL No results found for: [id number] , IRON , TIBC , C3 , [...] No definite fo (more content not included)... [facility] 05-24-2024 Note Adult Nutrition Asse ssment: Name: [...] BUN 9 05/24/2024 0625 CREATININE 0.60 05/24/2024 06 NA 138 05/24/2024 0625 K 3.0 (L) 05/24/2024 06 MG 1.6 (L) 05/24/2024624 HGB 8.3 (L) 05/24/2024 0625 WBC 2.10 [...] chest wall infected seroma. Washout and tissue equine science instructor removal 11/27/23. I&D on 02/26/24 and 03/21/24. [...] ideal body weight (70.5 kg) Calorie needs: 3206-6172 kcals/day based on Equation: 25-30 kcal/kg Protein [...] per the clinica (more content not included)... [facility] 05-23-2024 Note Pharmacy Dosing Serv ice - [...] BUN/SCr daily Thank you, Jessica Morse, PharmD [facility] 05-23-2024 Note ID consult Follow-up on ESR [facility] 05-23-2024 Note Ferrous sulfate 1 tab twice linda y [facility] 05-23-2024 Note Normal saline at 100 mL/hour for next 10 hours ID consult Blood cultures, infectious workup is pending [facility] 05-23-2024 Note Hospital Medicine History and Physical 05/23/2024 10:14 PM THE HOSPITALIST TEAM PREFERS TO USE REPP CHAT FOR NON-URGENT COMMUNICATION 7AM-7PM. IF I DO NOT RESPOND WITHIN 20 MINUTES OR URGENT MATTERS, PLEASE CALL THROUGH THE SENIOR COURTROOM CLERK. FROM 7PM-7AM, PLEASE PAGE [phone](COVR). Chief Complaint Chief Complaint Patient presents with [...] days. She states that she went to [facility] ER yesterday and got a full workup done [...] in the morning. Yesterday, ER physician from [facility] called infectious disease specialist at [facility] and they recommended patient to be transferred to [place] but patient opted out to go home. [...] this hospital stay by a member of [facility] Medicine. Past Medical History Past Medical History: Diagnosis Date Cancer (CMS/HCC) Hypertension Past Surgical History Past Surgical History: Procedure Laterality Date ANTERIOR CRUCIATE LIGAMENT REPAIR HYSTERECTOMY Social History (more content not included)... [facility] 05-23-2024 Miscellaneous Notes Automobile Body Repairer called this patient to see if she got some pre op labs done she is scheduled for surgery 05/26/24, patient stated had left breast surgery on 05/02/24 and has had some post op complications was in the hospital 11 days, had 2 debridements, bone marrow bx, pt hiv cts specialist Dr. Hope said he sent Dr. Sepulveda [...] PET scan, pt has office contact information, play writer cx'd surgery. documented in this encounter [facility] 05-23-2024 Telephone encounter Note Automobile Body Repairer called this patient to see if she got some pre op labs done she is scheduled for surgery 05/26/24, patient stated had left breast surgery on 05/02/24 and has had some post op complications was in the hospital 11 days, had 2 debridements, bone marrow bx, pt hiv cts specialist Dr. Hope said he sent Dr. Sepulveda [...] PET scan, pt has office contact information, play writer cx'd surgery. [facility] 05-22-2024 Hospital Discharge instructions Follow Up Care 05/22/2024 18:55:47 With:HERMAN LUI Address: [address] [place] [address] When:05/25/2024 Comments:Call Dr for diagnosis based follow up With:RANDY CALLE Address: [address] [place] [address] Business (1) When:Within 3 Day(s) [facility] 05-22-2024 Evaluation + Plan note Extrac tena [...] Charcoal 05/22/24 * Blood Culture Charcoal 05/22/24 [facility] [id number] NoteDivision of Infectious Diseases Follow up Note [...] has been approved by IRB, FDA and [facility]. Consent signed and reviewed with Avi Tobar, [facility], patient and myself. 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 Clofazimine JOSÉ MIGUEL remains <= 0.5 Imipenem remains at JOSÉ MIGUEL of 16 No JOSÉ MIGUEL creep noted. There is an additional culture from 03/21/24 that is pending, has been sent to [facility] for further work up. Awaiting those [...] peak 30-35 Will need monitoring labs and merchant banker H/H if it remains persistently low may have to consider discontinuing tidezolid. Given the cessation of tidezolid have moved to a dual beta-lactam approach, would continue with amikacin and PO clofazimine as well. Discussed plans for allergy referral at [facility] to discuss omadacycline desensitization and allergy testing. At some point will need her towards an oral regimen, and limit her Ivs Subjective History of Present Illness: Since last visit patient was admitted to [facility] from 05/02 to 05/13. I had discussed with patient's plastic surgeon Dr. Gross that I was concerned about her left chest port and her continuing wound from the left breast area. After her appointment with me patient had sent in pictures of the wound dehiscing. I forwarded these pictures and my concerns to Dr. Gross's office who promptly had patient admitted to [facility] for left Mediport removal and additional [...] I discussed with the ID pharmacist at [facility] [place] tedizolid was discontinued and ceftaroline 600 mg [...] size was 21 x (more content not included)...[facility] 05-18-2024 History of Present illness Narrative* Shereen Smallwood PA-C - 05/18/2024 9:00 AM EDT [facility] [address] Office Jhon Gross MD, PhD Marisela Cuevas, WEB DEVELOPMENT INSTRUCTOR-DIAL SCREW ASSEMBLER Shereen Smallwood PA-C Plastic Surgery Progress Note Reason for visit : post-op History of present illness: Ike Flannery is a 53 y.o. female with a history of right breastcancer status post bilateral skin sparing mastectomies (He) and tissue equine science instructor reconstruction in 10/28/2023. Her postoperative course was complicated by an infected seroma of her left breast requiring operative washout and tissue equine science instructor removal 11/27/23. Intraoperative cultures demonstrated growth of [...] dressing well. Discussed plans to order a KCI wound vacin order to expedite the time to wound healing. Patient is open and agreeable to the treatment plan. Once the vac arrives, we will plan for twice weekly vac changes. SHEREEN SMALLWOOD PA-C Please note that portions of this note were generated using voice recognition M*Modal dictation software. Although every effort was made to ensure the accuracy of this automated mft, some errors in mft may have occurred. Shereen Smallwood PA-C 05/27/24 1323 documented in this encounterMercy Health Fairfield HospitalFocus Media [facility] Community [id number] Miscellaneous Notes* Telephone Encounter - Bobby Otero - 05/12/2024 12:05 PM EDT Pt has unsafe tissue equine science instructor for MRI. Nurse and MD aware. Orders cancelled documented in this encounterSheltering Arms Hospital03-13-2025 Telephone encounter Note* Telephone Encounter - Bobby Taylorlashawn - 05/12/2024 12:05 PM EDT Pt has unsafe tissue equine science instructor for MRI. Nurse and MD aware. Orders cancelled [facility]02-28-2025 History of Present illness Narrative* AMEENA Kennedy - 04/29/2024 9:27 AM EST Picc line order placed. AMEENA Kennedy 05/02/24 0746 documented in this encounterSheltering Arms Hospital02-27-2025 NoteWound image from 04/27 was sent to plastic surgeon. Has shown progression from image sent the prior day.[facility]02-27-2025 NoteOn 04/27/2024 at 10:12, patient contacted Clinical Research Pharmacist Dr. Avi Tobar with concerns of hole in wound opening up more. I called Dr. Herman Lui, and he called the patient back and left a message with plastic surgeon Dr. Gross's office and sent them a picture of the wound. Avi Tobar, PharmD, BCPSUniversNorwalk Memorial Hospital02-27-2025 History of Present illness Narrative* Jhon Gross MD - 04/28/2024 3:15 PM EST [facility] [address] Office Jhon Gross MD, PhD AMEENA Kennedy PA-C Gretchen Kuhlman, APRN-CNP Plastic Surgery Progress Note Reason for visit : post-op History of present illness: Ike Flannery is a 53 y.o. female with a history of right breastcancer status post bilateral skin sparing mastectomies (He) and tissue equine science instructor reconstruction in 10/28/2023. Her postoperative course was complicated by an infected seroma of her left breast requiring operative washout and tissue equine science instructor removal 11/27/23. Intraoperative cultures demonstrated growth of [...] procedures Referring and communicating with other health care coordination manager (not separately reported) Documenting clinical information in the electronic or other health record Independently interpreting results (not separately reported) and communicating results to the patient/family/caregiver Care coordination (not separately reported) Please note that portions of this note were generated using voice recognition M*Modal dictation software. Although every effort was made to ensure the accuracy of this automated mft, some errors in mft may have occurred. documented in this encounterMercy Health Fairfield HospitalCole Martin [id number] NoteImage sent from her left breast wound n 04/26/2024. Reports significant other was changing the dressing, and removing packing when it made another hole. Will touch base with Will plan on continuing current antibiotics.[facility] 04-26-2024 Miscellaneous Notes* Telephone Encounter - Viviane [...] 9:43 AM EST [facility] documented in this encounterSheltering Arms Hospital02-25-2025 Telephone encounter Note* Telephone Encounter - Viviane Lopez CMA - 04/26/2024 9:43 AM EST [facility] Called: They said that they received the referral from our office for the patient to have BID wet to dry dressing changes to her breast wound. Unfortunately they do not accept her insurance so they will not be able to provide these services for her. [facility] HospitalFanshout [facility] [id number] Telephone encounter Note* Telephone Encounter - AMEENA Kennedy - 04/26/2024 9:43 AM EST Will fax referral to [facility]. [facility] HospitalRevolve [facility] Work Phone: 1(337) 791-817202-21-2025 Miscellaneous Notes* Telephone Encounter - AMEENA Kennedy - 04/22/2024 12:35 PM EST Spoke with patient oncology team. They are okay with her port being removed and a picc line being placed. They are working on coordinating that surgery. They have already updated the patient's infectious disease physician. - AMEENA Rand 04/22/24 12:36 PM documented in this encounterNorth Country HospitalArkmicro [id number] Telephone encounter Note* Telephone Encounter - AMEENA Kennedy - 04/22/2024 12:35 PM EST Spoke with patient oncology team. They are okay with her port being removed and a picc line being placed. They are working on coordinating that surgery. They have already updated the patient's infectious disease physician. - AMEENA Rand 04/22/24 12:36 PM [employer] Work Phone: 1(579) 578-132802-20-2025 History of Present illness Narrative* Catie Walker, SHARAD - 04/21/2024 11:30 AM EST Reason for [...] 12.5 MG tablet Every 24 hours HYDROcodone-acetaminophen (Toano) 5-325 MG tablet TAKE ONE TABLET BY [...] Date ANTERIOR CRUCIATE LIGAMENT REPAIR Right 2006 [place] BI US GUIDED BREAST LOCALIZATION RIGHT Right [...] nursing note reviewed. Exam conducted with a carpentry professional present. Vitals: Estimated body mass index is [...] of: Evan Thompson DO documented in this encounterBoone Hospital [id number] History of Present illness Narrative* Marisela Cuevas APRN-DIAL SCREW ASSEMBLER - 04/20/2024 3:30 PM EST [facility] [address] Office Jhon Gross MD, PhD Marisela Cuevas, WEB DEVELOPMENT INSTRUCTOR-DIAL SCREW ASSEMBLER INÉS King, ROBER-DIAL SCREW ASSEMBLER Plastic Surgery Progress Note Reason for visit : post-op History of present illness: Ike Flannery is a 53 y.o. female with a history of a history ofright breast cancer status post bilateral skin sparing mastectomies (He) and tissue equine science instructor reconstruction in 10/28/2023. Her postoperative course was complicated by an infected seroma of her leftbreast requiring operative washout and tissue equine science instructor removal 11/27/23. Intraoperative cultures demonstrated growth of [...] this note were generated using voice recognition [employer] dictation software. Although every effort was made to ensure the accuracy of this automated mft, some errors in mft may have occurred. 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 Consent signed and reviewed with Avi Tobar [facility], patient and myself. Everyday, Thursday-Thursday for 20 days Radiation therapy. Keytruda starting on Thursday Oopherectomy plannned Update potassium dose On b6 and b12 On anastrozole. 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 Clofazimine JOÉS MIGUEL remains <= 0.5 Imipenem remains at JOSÉ MIGUEL of 16 No JOSÉ MIGUEL creep noted. There is an additional culture from 03/21/24 that is pending, has been sent to [facility] for further work up. Awaiting those [...] to tolerate. Will need monitoring labs and merchant banker H/H if it remains persistently low may [...] as the initial trigger followed by breast equine science instructor placement. Source control was achieved with equine science instructor removal in October. The skin appears healthy [...] the right breast. ER negative (weakly positive) DC negative HER2 negative. Was previously on chemotherapy [...] sounds; no bruits, o (more content not included)...[facility]02-12-2025 History of Present illness Narrative* AMEENA Kennedy - 04/13/2024 2:00 PM EST [facility] [address] Office Jhon Gross MD, PhD AMEENA Kennedy INÉS King, WEB DEVELOPMENT INSTRUCTOR-DIAL SCREW ASSEMBLER Plastic Surgery Progress Note Reason for visit : post-op History of present illness: Ike Flannery is a 53 y.o. female with a history of right breastcancer status post bilateral skin sparing mastectomies (He) and tissue equine science instructor reconstruction in 10/28/2023. Her postoperative course was complicated by an infected seroma of her left breast requiring operative washout and tissue equine science instructor removal 11/27/23. Intraoperative cultures demonstrated growth of [...] patient was seen and evaluated with Dr. Sugg. After verbal consent was obtained utilizing sterile [...] this note were generated using voice recognition [employer] dictation software. Although every effort was made to ensure the accuracy of this automated mft, some errors in mft may have occurred. AMEENA Kennedy 04/13/24 1459 documented in this encounterSheltering Arms Hospital02-12-2025 History of Present illness Narrative* Raymond Sepulveda MD - 04/13/2024 1:00 PM EST Subjective: Ike is a 53 y.o. female here for consultation from for evaluation and management of left-sided pelvic mass. This patient recently underwent a minimally invasive bilateral salpingo-oophorectomy for an ER and DC positive breast cancer, at the time of [...] 02/26/2024 Performed by Jhon Gross MD at [facility] EXCISION LYMPH NODE AXILLARY DISSECTION Right 10/28/2023 Performed by Christy He MD at [facility] EXCISION OF REDUNDANT INFECTED LEFT CHEST WALL TISSUE WITH PRIMARY CLOSURE Left 03/21/2024 Performed by Jhon Gross MD at [facility] HYSTERECTOMY 2006 IMMEDIATE BREAST RECONSTRUCTION WITH TISSUE RN CRITICAL CARE PLACEMENT Bilateral 10/28/2023 Performed by Jhon Gross MD at [facility] INCISION DRAINAGE BREAST Left 11/27/2023 Performed by Jhon Gross MD at [facility] INCISION DRAINAGE BREAST (WASHOUT) Left 02/26/2024 Performed by Jhon Gross MD at [facility] MAGNETIC SEED LOCALIZATION EXCISION/BIOPSY MASS BREAST (MAG SEED LOCALIZED TARGETED DISSECTION FOR RETRIEVAL OF PREVIOUSLY CLIPPED LYMPH NODE) Right 10/28/2023 Performed by Christy He MD at [facility] MASTECTOMY BREAST SIMPLE RISK REDUCING SKIN SPARING Left 10/28/2023 Performed by Christy He MD at [facility] MASTECTOMY BREAST SIMPLE SKIN SPARING Right 10/28/2023 Performed by Christy He MD at [facility] MENISCECTOMY Bilateral 2022 PORTACATH PLACEMENT Left left chest REMOVAL RN CRITICAL CARE TISSUE BREAST Left 11/27/2023 Performed by Jhon Gross MD at [facility] RIGHT AXILLARY PROPHYLACTIC BYPASS LYMPHOVENOUS Right 10/28/2023 Performed by Jhon Gross MD at [facility] TONSILLECTOMY AND ADENOIDECTOMY Age 3 [...] right breast of female, estrogen receptor positive ([facility]) S/P breast reconstruction, bilateral Cellulitis of left breast MIRNA (acute kidney injury) ([facility]) Infection of deep incisional surgical site after [...] procedures Referring and communicating with other health care coordination manager (not separately reported) Documenting clinical information in the electronic or other health record Raymond Sepulveda MD documented in this encounterNorth Country HospitalArkmicro [id number] History of Present illness Narrative* Nasreen Li, CCC-A - 04/13/2024 8:45 AM EST History: Pt was referred to Audiology because of hearing loss. Pt needs baseline audio before she starts a potentially ototoxic antibiotic. Pt does not notice hearing loss. She denies tinnitus. 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 Office Jhon Gross MD, PhD Marisela Cuevas, WEB DEVELOPMENT INSTRUCTORLEONARD [facility]ORSE [facility] INÉS King APRNESPERANZA Plastic Surgery Progress Note Reason for visit : post-op History of present illness: Ike Flannery is a 53 y.o. female with a past medical history right breast cancer status post bilateral skin sparing mastectomies (He) and tissue equine science instructor reconstruction in 10/28/2023. Her postoperative course was complicated by an infected seroma of her left breast requiring operative washout and tissue equine science instructor removal 11/27/23. Intraoperative cultures demonstrated growth of [...] to ensure the accuracy of this automated mft, some errors in mft may have occurred. AMEENA Kennedy 03/30/24 1629 documented in this encounterMercy Health Fairfield HospitalFocus Media [facility]erville Community HospitalNtnpgs72-82-2718 Instructions* Pre- Procedure Instructions - Lenore Grover RN - 03/18/2024 1:45 PM EST Your surgery/procedure is scheduled at [facility] on 03/21/24 at 3;30 pm Arrival Time 12;30 pm [facility] Address: [address] [place] [address], [address] Park in the Emergency Center Parking lot. Report to the motel front desk attendant in the Emergency/Surgery Registration lobby of the hospital. Notify your SURGEON if you develop any illness such as a cold, cough, fever, sore throat, vomiting or are hospitalized between now and your surgery. Please call Pre-Admission Clinic at [phone] if you have any questions prior to surgery. For questions the morning of surgery, call the Pre-op Department at [phone]. Medication Instructions (Do not stop your medications [...] would like to schedule therapy at a [facility] facility, please call [phone] ([phone]). Do not use lotions, creams, powders, perfume, make up, cologne or after-shaves day of surgery. Remove ALL jewelry including wedding rings, body piercings, hair extensions that contain metal, nail fijian, make-up, and contact lens. You may brush your teeth the morning of surgery, but do not swallow the water. Wear your dentures and partial plates to the hospital (no adhesive). Shower the night the before. If applicable, use the CHG (chlorhexidine gluconate) soap or wipes. Please be advised, [facility] has transitioned to a cashless payment system. [...] RIGHTS AND RESPONSIBILITIES As a patient at [facility], you have the right to: Receive medical care and be informed of who is taking care of you Be treated with dignity and respect Have a family member/u.s. representative of choice and your physician notified [...] of hospital charges and payment methods Patient/patient u.s. representative responsibilities are to: Provide information about health status to facilitate care, treatment and services Follow the treatment, plan, keep appointments and speak up when you do not understand the plan Respect the rights of other patients and healthcare personnel Follow organizational rules and regulations that support quality care and a safe environment Fulfill financial obligations as promptly as possible [facility]01-17-2025 Miscellaneous Notes* Pre-Procedure Instructions - Lenore Grover RN - 03/18/2024 1:45 PM EST Your surgery/procedure is scheduled at [facility] on 03/21/24 at 3;30 pm Arrival Time 12;30 pm [facility] Address: [address] [place] [address], [facility], [address] Park in the Emergency Center Parking lot. Report to the motel front desk attendant in the Emergency/Surgery Registration lobby of the hospital. Notify your SURGEON if you develop any illness such as a cold, cough, fever, sore throat, vomiting or are hospitalized between now and your surgery. Please call Pre-Admission Clinic at [phone] if you have any questions prior to surgery. For questions the morning of surgery, call the Pre-op Department at [phone]. Medication Instructions (Do not stop your medications [...] would like to schedule therapy at a [facility] facility, please call [phone] ([phone]). Do not use lotions, creams, powders, perfume, make up, cologne or after-shaves day of surgery. Remove ALL jewelry including wedding rings, body piercings, hair extensions that contain metal, nail fijian, make-up, and contact lens. You may brush your teeth the morning of surgery, but do not swallow the water. Wear your dentures and partial plates to the hospital (no adhesive). Shower the night the before. If applicable, use the CHG (chlorhexidine gluconate) soap or wipes. Please be advised, [facility] has transitioned to a cashless payment [...] RIGHTS AND RESPONSIBILITIES As a patient at [facility], you have the right to: Receive medical care and be informed of who is taking care of you Be treated with dignity and respect Have a family member/u.s. representative of choice and your physician notified [...] of hospital charges and payment methods Patient/patient u.s. representative responsibilities are to: Provide information about health status to facilitate care, treatment and services Follow the treatment, plan, keep appointments and speak up when you do not understand the plan Respect the rights of other patients and healthcare personnel Follow organizational rules and regulations that support quality care and a safe environment Fulfill financial obligations as promptly as possible documented in this encounterSheltering Arms Hospital01-15-2025 NotePatient seen in clinic today for [...] and the other 2 are in the online media director section from today's date -she has a [...] insurance company for a referral to an lead supply worker, need to start chemotherapy within the next [...] Lui will consult with mycobacterial experts at [facility] regarding the risk of worsening or inability control the current mycobacterial infection with the planned chemotherapeutic agents and then he will [place] back with oncology as well -if there [...] to need to communicate to us through [place] and she has an appointment scheduled for [...] if possible Addendum: spoke with Dr. Gross ([phone]) and his staff will call her to get her on the surgery schedule. Spoke with Dr. Hope ([phone]) and he will try to start chemo in late AprilA[facility] Miscellaneous Notes* Telephone Encounter - Alton Greco - 03/15/2024 4:49 PM EST [facility] [place] (Radiology) Requested Most Recent Office Note Faxed at 4:45pm 03/15/24 documented in this encounterSheltering Arms Hospital01-14-2025 Telephone encounter Note* Telephone Encounter - Alton Greco - 03/15/2024 4:49 PM EST [facility] (Radiology) Requested Most Recent Office Note Faxed at 4:45pm 03/15/24 [facility]01-13-20[facility] Evaluation note* Diagnosis Onset Date Resolution Status Admit Date Breast cancer, right acute [place] randolph2024 2:42pm Breast cancer, right acute Febr uary 2024 2:57pm [facility] Work Phone: 1(151) 782-674401-09-2025 History of Present illness Narrative* Megan Nuñez [...] with Dr. Thompson at [facility]. MEDICATIONS Current Outpatient Medications Medication Instructions chlorthalidone [...] 12.5 MG tablet Every 24 hours HYDROcodone-acetaminophen (Toano) 5-325 MG tablet TAKE ONE TABLET BY MOUTH EVERY 6 HOURS NEEDED FOR PAIN SCALE 4 TO 6 lidocaine-prilocaine (Emla) 2.5-2.5 % cream APPLY QUARTER SIZE AMOUNT TO AREA OF [facility], 30 MINS BEFORE CHEMO BLOOD DRAW lisinopril-hydroCHLOROthiazide [...] History: Diagnosis Date Cardiac dysrhythmia HTN (hypertension) ([facility]) Hypokalemia Migraine headache ([facility]) Social History Tobacco Use Smoking status: Never [...] nursing note reviewed. Exam conducted with a carpentry professional present. Vitals: Estimated body mass index is [...] of: Evan Thompson DO documented in this encounterBoone Hospital [id number] History of Present illness Narrative* Jhon Gross MD - 03/10/2024 8:15 AM EST [facility] [address] Office Jhon Gross MD, PhD Marisela Cuevas, WEB DEVELOPMENT INSTRUCTOR-DIAL SCREW ASSEMBLER INÉS King, WEB DEVELOPMENT INSTRUCTOR-DIAL SCREW ASSEMBLER Plastic Surgery Progress Note Reason for visit [...] left breast requiring operative washout and tissue equine science instructor removal in November 2023. Intraoperative cultures demonstrated [...] active infection, no palpable fluid collections Female carpentry professional present - yes Impression: 1. Postoperative visit 2. Mycobacterium abscessus infection 3. S/P breast reconstruction, bilateral 4. Malignant neoplasm of lower-inner quadrant of right breast of female, estrogen receptor positive([facility]) Recommendations: 1mnth f/u sanchez gross sutures were pulled f/u with Briana [...] to ensure the accuracy of this automated mft, some errors in mft may have occurred. I, JHON GROSS MD, [...] as stated above. Jhon Gross MD, PhD [facility] Total time spent was 25 minutes: Preparing to see the patient (e.g., review of tests) Obtaining and/or reviewing separately obtained history Performing a medically appropriate examination and/or evaluation Counseling and educating the patient/family/caregiver Ordering medications, tests, or procedures Referring and communicating with other health care coordination manager (not separately reported) Documenting clinical information in the electronic or other health record Independently interpreting results (not separately reported) and communicating results to the patient/family/caregiver Care coordination (not separately reported) documented in this encounterSheltering Arms Hospital01-02-2025 History of Present illness Narrative* Jhon Gross MD - 03/03/2024 12:30 PM EST [facility] [address] Office Jhon Gross MD, PhD Marisela Cuevas, WEB DEVELOPMENT INSTRUCTOR-DIAL SCREW ASSEMBLER INÉS King APRN-DIAL SCREW ASSEMBLER Plastic Surgery Progress Note Reason for visit [...] left breast requiring operative washout and tissue equine science instructor removal in November 2023. Intraoperative cultures demonstrated [...] of right breast of female, estrogen receptor positive([facility]) Recommendations: Will discuss with ID-Dr Lui whether [...] as stated above. Jhon Gross MD, PhD [facility] Total time spent was 20 minutes: Preparing to see the patient (e.g., review of tests) Obtaining and/or reviewing separately obtained history Performing a medically appropriate examination and/or evaluation Counseling and educating the patient/family/caregiver Ordering medications, tests, or procedures Referring and communicating with other health care coordination manager (not separately reported) Documenting clinical information in the electronic or other health record Independently interpreting results (not separately reported) and communicating results to the patient/family/caregiver Care coordination (not separately reported) Please note that portions of this note were generated using voice recognition [employer] dictation software. Although every effort was made to ensure the accuracy of this automated mft, some errors in mft may have occurred. documented in this encounterSheltering Arms Hospital01-01-2025 Miscellaneous Notes* Telephone Encounter - Arlet Selby - 03/02/2024 2:27 AM EST Contract: Marisel Mila @[facility] Microbiology Lab called with a critical result * Telephone Encounter - Maria Del Carmen Knight - 03/02/2024 2:[address] Gross cell and left message to call [facility]. * Telephone Encounter - Maria Del Carmen Knight - 03/02/2024 2:[address] Gross cell and left message to call [facility]. * Telephone Encounter - Maria Del Carmen Knight - 03/02/2024 2:[address] Gross cell and left message to call [facility]. * Telephone Encounter - Maria Del Carmen Knight - 03/02/2024 2:[address] Gross cell and left message to call [facility]. * Telephone Encounter - Maria Del Carmen Knight - 03/02/2024 2:[address] Gross cell and left message to call [facility] * Telephone Encounter - Maria Del Carmen Knight - 03/02/2024 2:[address] Gross cell and left message to call [facility]. * Telephone Encounter - Maria Del Carmenpati Knight - 03/02/2024 2:[address] Gross called and connected with lab. documented in this encounterSheltering Arms Hospital01-01-2025 Telephone encounter Note* Telephone Encounter - Arlet Selby - 03/02/2024 2:27 AM EST Contract: Marisel Mila @[facility] Microbiology Lab called with a critical result [facility]01[facility] Telephone encounter Note* Telephone Encounter - Maria Del Carmen Knight - 03/02/2024 2:[address] Gross cell and left message to call [facility]. [facility] Telephone encounter Note* Telephone Encounter - Maria Del Carmen Knight - 03/02/2024 2:[address] Gross cell and left message to call [facility]. [facility]01-01[facility] Telephone encounter Note* Telephone Encounter - Maria Del Carmen Szymanskifford - 03/02/2024 2:[address] Gross cell and left message to call [facility]. [facility]01-01-[facility] Telephone encounter Note* Telephone Encounter - Maria Del Carmenpati Knight - 03/02/2024 2:[address] Gross cell and left message to call [facility]. [facility]01-01[facility] Telephone encounter Note* Telephone Encounter - Maria Del Carmen Szymanskifford - 03/02/2024 2:[address] Gross cell and left message to call [facility] Tele[facility] encounter Note* Telephone Encounter - Maria Del Carmenpati Knight - 03/02/2024 2:[address] Gross cell and left message to call [facility]. [facility]01-01[facility] Telephone encounter Note* Telephone Encounter - Maria Del Carmen Knight - 03/02/2024 2:[address] Gross called and connected with lab. [facility]12-30[facility] Miscellaneous Notes* Telephone Encounter - Joya Gray CMA - 02/29/2024 8:20 AM EST Attempted to call patient to reschedule her /[address] Gross If patient calls back please place her on 03/[address] Gross documented in this encounterSheltering Arms Hospital12-30-2024 Telephone encounter Note* Telephone Encounter - Joya Gray CMA - 02/29/2024 8:20 AM EST Attempted to call patient to reschedule her 03/[address] Gross If patient calls back please place her on 03/[address] Gross [facility]12-24-[facility] Miscellaneous Notes* Telephone Encounter - Jhon [...] agreeable with this plan. documented in this encounterSheltering Arms Hospital12-24-2024 Telephone encounter Note* Telephone Encounter - [...] evaluation. She was agreeable with this plan. [facility]12-24-[facility] Miscellaneous Notes* Telephone Encounter - Graciela Borges CMA - 02/23/2024 7:54 PM EST Contract: [id number] Pt called said she has a a dehiscence wound from breast surgery that is leaking. * Telephone Encounter - Graciela Borges CMA - 02/23/2024 7:[address] Gross called back, connected to pt. documented in this encounterSheltering Arms Hospital12-24-2024 Telephone encounter Note* Telephone Encounter - Graciela Borges CMA - 02/23/2024 7:54 PM EST Contract: 206 Pt called said she has a a dehiscence wound from breast surgery that is leaking. [facility]12-[facility] Telephone encounter Note* Telephone Encounter - Graciela Borges CMA - 02/23/2024 7:[address] Gross called back, connected to pt. 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 Consent signed and reviewed with Avi Tobar Rp, patient and myself. Everyday, Thursday-Thursday for 20 days Radiation therapy. Keytruda starting on Thursday Oopherectomy plannned Update potassium dose On b6 and b12 On anastrozole. Clofazimine started on 02/14March 18 EKG Mar 24- trip to [place], advised wearing a mask while in crowded places, would avoid public pools, showers, water méndez Recommendations: Continue on PO Tedizolid 200mg once daily Continue clofazamine 100mg once daily, started on 02/14 Imipenem has been extended an additional 4 weeks Will meet with allergy and immunology to discuss tetracycline allergy and possible desensitization Discussed with ndt inspector. PA appeal pending. Will need monitoring labs and merchant banker H/H if it remains persistently low may [...] as the initial trigger followed by breast equine science instructor placement. Source control was achieved with equine science instructor removal in October. The skin appears healthy [...] the right breast. ER negative (weakly positive) DC negative HER2 negative. Was previously on chemotherapy [...] (Flexeril) 10 mg tab (more content not included)...[facility]12-16-2024 NoteWill have additional follow up on 04/18 where we will discuss continued antibiotic therapy. In process of completing PA for omadacycline Continue on Tidelzolid Would extend imipenem for 4 additional weeks. Can be discontinue early if we are able to obtain omadacycline and de-sensitize her appropriately.[facility]12-16-2024 History of Present illness Narrative* Catie Walker, SHARAD - 02/15/2024 3:30 PM EST Reason for [...] 12.5 MG tablet Every 24 hours HYDROcodone-acetaminophen (Toano) 5-325 MG tablet TAKE ONE TABLET BY [...] Date ANTERIOR CRUCIATE LIGAMENT REPAIR Right 2006 [place] BI US GUIDED BREAST LOCALIZATION RIGHT Right [...] nursing note reviewed. Exam conducted with a carpentry professional present. Vitals: Estimated body mass index is 28.87 kg/m as calculated from the following: Height as of 01/24/24: 5' 11 . Weight as of this [...] will need to have urinary stents placed. Political Researcher will reach out to patient once surgery is setup. Patient to return to clinic for pre-op appointment. Documented by Catie Walker LPN on behalf of: Evan Thompson DO documented in this encounterBoone Hospital [id number] Evaluation note* Diagnosis Onset Date Resolution Status Admit Date Mycobacterium abscessus infection acute February 10 2:21pm Breast cancer, right acute [place] randolph 5 2:42pm [facility] Work Phone: [phone] Evaluation note* Diagnosis Onset Date Resolution Status Admit Date Mycobacterium abscessus infection acute February 10 2:21pm Breast cancer, right acute [place] randolph 2024 2:42pm Breast cancer, right acute Febr uary 2024 2:57pm [facility] Work Phone: [phone] NoteClinical Reasoning Patient has a history of [...] wound in relation to where a breast equine science instructor was placed. She has macrolide resistant Mycobacterium [...] the patient Her resistance as tested at [facility] is below: Sources: Cuauhtemoc Au, Clement Curry, Nicci Lacey, Michael Heard, Emily Hamilton, Kayleigh Gutierrez, Michael Michelle, Aye Hopson, Marianna Draper, Efficacies of three drug regimens containing omadacycline to treat Mycobacteroides abscessus disease, Tuberculosis, Volume 146, 2023, 079122, ISSN 8101-3121, https://doi.org/10.1016/j.tube.2023.504189. Omadacycline as a promising new agent for the treatment of infections with Mycobacterium abscessus J Antimicrob Chemother 2019; 74: 2087-0908 doi:10.1093/peyman/gtr331 Advance Access publication 23 August 2018 Jean SHORT, Kyree LORENZANA, Jr. 2020. In vitro susceptibility testing of omadacycline against nontuberculous mycobacteria. Antimicrob Agents Chemother 65:i37829-88. https://doi.org/10.1128/AAC.59022-28. León C, Kalpana D, Camilo M, Ermelinda Valdez. 2019. In vitro activities of omadacycline against rapidly growing mycobacteria. Antimicrob Agents Chemother 63:a25269-61. https://doi.org/10.1128/AAC .92415-11. Omadacycline for treatment of Mycobacterium chelonae skin infection Iliana Sin MSa , Corrina Marcelo MDb, and Monique Delacruz PROC ([facility]) 2020;33(4):610-611 Copyright # 2020 [facility] https://doi.org/10.1080/79298596.2020.2137220 Herman Lui DO [facility] Infectious DiseaseA[facility]12-11-[facility]24 Telephone encounter Note* Telephone Encounter - Yves Coffey MD - 02/10/2024 4:58 PM EST I suggested she speak with her infectious disease physician about either selecting a different agent or writing a letter for the insurance company to get the procedure covered. [facility] [id number] Miscellaneous Notes* Telephone Encounter - Yves Coffey MD - 02/10/2024 4:58 PM EST I suggested she speak with her infectious disease physician about either selecting a different agent or writing a letter for the insurance company to get the procedure covered. documented in this encounterBoone Hospital [id number] History of Present illness Narrative* Yves Coffey [...] of call 8 minutes. documented in this [facility]11-25-2024 History of Present illness Narrative* Yves Coffey [...] as an inpatient in the ICU at [facility]. I will call the hospitalist at [facility] tomorrow about direct admission to the ICU for this procedure in the next several days. I explained to the patient the need to stop her toprol 36 hours before her procedure. She is on this for Trigeminy and HTN. I asked her to communicate withher hiv cts specialist whether she can stop this medication briefly for 36 hours prior to her procedure. Time of Visit 70 minutes including review of prior records and communicating with her referring infectious disease physician on the phone and contact the patient after hours to discuss the final plan. 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 Consent signed and reviewed with Avi Tobar [facility], patient and myself. Everyday, Thursday-Thursday for 20 [...] as the initial trigger followed by breast equine science instructor placement. Source control was achieved with equine science instructor removal in October. The skin appears healthy [...] the right breast. ER negative (weakly positive) DC negative HER2 negative. Was previously on chemotherapy [...] , Rfl: T (more content not included)...[facility]10-30-2024 History of Present illness Narrative* [...] Refer to Evon MASON. documented in this encounterBoone Hospital [id number] Note Attestation signed by Herman Lui DO at 12/31/2023 11:07 PM I performed a history and physical examination of the patient Ike Flannery, I independently reviewed the laboratory work and imaging as well as other studies mentioned in the above note; I have seen the patient along with and discussed the management with the Infectious Diseases fellow, Scott Baldwin DO I have reviewed the above note, I agree with the findings and plan of care with the following additions and corrections: Agree with above complicated with right breast malignancy s/p bilateral mastectomy with tissue equine science instructor placed in 10/28/2023. [place] water exposure was approximately a month prior making the port on the left side the possible portal of entry. Tissue equine science instructor has been taken out, the left chest [...] well as her oncologist. Have sent e-consult [facility]. Started IRB process for Clofazimine approval [...] the right breast. ER negative (weakly positive) DC negative HER2 negative. She received neoadjuvant chemotherapy with carboplatin and paclitaxel and Keytruda on September 28. Of note, she went to the ocean shortly after September 28 and believes that she might have gotten water splashed from the ocean on her port. She underwent double mastectomy in October 2023 at which point the spacer was placed. She had a tissue equine science instructor on her left breast that was removed in October because of the mycobacterial infection. At the time, the breast became erythematous with the equine science instructor in place. Culture grew Mycobacterium abscessum. The equine science instructor was removed November 25 and it was [...] intended. She is going to Radiology at [facility] in [place]. She is currently on oral clarithromycin 500 [...] the morning. c (more content not included)...[facility]10-29-2024 Evaluation note* Diagnosis Onset Date Resolution Status Admit Date Breast cancer, right acute Octo 2023 10:50am Mycobacterium abscessus infection acute February 10, 024 2:21pm Breast cancer, right acute [place] randolph 2024 2:42pm [facility] Work Phone: [phone] History of Present illness Narrative* Shereen Smallwood PA-C - 12/29/2023 8:30 AM EDT [facility] [address] Office Jhon Gross MD, PhD Marisela Cuevas, WEB DEVELOPMENT INSTRUCTOR-DIAL SCREW ASSEMBLER Shereen Smallwood, INÉS Tellez, WEB DEVELOPMENT INSTRUCTOR-DIAL SCREW ASSEMBLER Plastic Surgery Progress Note Reason for visit [...] developed an infection of her left tissue equine science instructor and went underwent I&D of left breast was removal of tissue equine science instructor 11/27/2023. She presents tothe office today for tissue equine science instructor filled. She reports that she meets with radiation oncology next week for possible simulation. She is doing well however she does wish to be proximally a D cup and feels that she is a high see at present. Her breast is tight and she is uncertain whether she can accommodate more volume. Procedure note : Tissue equine science instructor fill port, was identified using magnet. This area was cleansed with alcohol, and Betadine. Then using a 25 gauge needle, approximately 75ml normal saline was injectedinto right tissue equine science instructor(s). Patient tolerated well. Adequate hemostasis was achieved, [...] of right breast of female, estrogen receptor positive([facility]) Recommendations: Patient tolerated the MAGO fill. We [...] this note were generated using voice recognition [employer] dictation software. Although every effort was made to ensure the accuracy of this automated mft, some errors in mft may have occurred. Shereen Smallwood PA-C 12/29/23 1349 documented in this encounterSheltering Arms Hospital10-28-2024 Hospital Discharge instructions Patient Education 12/28/2023 [...] in conditions and diseases of the eye (extruder tender). The exam may include: ?Putting eye drops [...] provider. Document Revised: 09/04/2021 Document Reviewed: 09/04/2021 [employer] Patient Education 2023 [employer]. Follow Up Care 12/28/2023 20:24:16 With:Georgiana Justice Address: [facility] [address], [facility] [address] [place] [address] Business (1) When:12/29/2023 21:28:05 Comments:Please call first in the morning for same-day appointment With:RANDY CALLE Address: [address] [place] [address] Business (1) When:Within 3 Day(s) [facility] 10-28-2024 NoteED Patient Education Note Ophthalmology [...] in conditions and diseases of the eye (extruder tender). The exam may include: ? Putting eye [...] provider. Document Revised: 09/04/2021 Document Reviewed: 09/04/2021 [employer] Patient Education ? 2023 [employer].[facility] 12-28-2023 Evaluation + Plan noteExtracted from: Title:ED Note Author:Clifford Rusty GALLEGOS. 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 Office Jhon Gross MD, PhD Marisela Cuevas APRN-DAY[place] PotterC Plastic Surgery Progress Note Reason for visit : Routine post operative appointment. History of present illness: Ike Leigh Widman is a 53 y.o. female who presents for postoperativevisit. Patient underwent bilateral skin sparing mastectomies and right axillary node dissection (Dr. He) with immediate bilateral breast reconstruction with placement of tissue expanders and right prophylactic lymphovenous bypass on 10/29/23. Patient unfortunately developed an infection of her left tissue equine science instructor and went underwent I&D of left breast was removal of tissue equine science instructor 11/27/2023. Shepresents to the office today for tissue equine science instructor filled. She reports that she meets with [...] Recommendations: Patient is doing well postoperatively. Tissue equine science instructor filled performed in office today. Discussed with patient she can use nram-gso-noihmdt acetaminophen or ibuprofen for Any discomfort after tissue equine science instructor filled. Continue with supportive bra. Okay to [...] concerns in the interim. - Marisela Cuevas APRN-DIAL SCREW ASSEMBLER 12/21/23 3:00 PM Please note that portions of this note were generated using voice recognition [employer] dictation software. Although every effort was made to ensure the accuracy of this automated mft, some errors in mft may have occurred. AMEENA Kennedy 12/21/23 1500 documented in this [facility]10-16-2024 Miscellaneous Notes* Telephone Encounter - Deborah Wills CMA - 12/16/2023 11:25 AM EDT Patient will call us back to schedule a hospital follow up documented in this encounterSheltering Arms Hospital10-16-2024 Telephone encounter Note* Telephone Encounter - Deborah Wills CMA - 12/16/2023 11:25 AM EDT Patient will call us back to schedule a hospital follow up [facility]10-14-2024 History of Present illness Narrative* AMEENA Kennedy - 12/14/2023 3:30 PM EDT [facility] [address] Office Jhon Gross MD, [...] developed an infection of her left tissue equine science instructor and went underwent I&D of left breast was removal of tissue equine science instructor 11/27/2023. Patient did have positive cultures. She continues to follow with Infectious Disease. She presents to office today for right breast tissue equine science instructor filled. She states overall she is doing [...] complexes are surgically absent. Right breast tissue equine science instructor in place. Procedure note : Tissue equine science instructor fill port, was identified using magnet. This area was cleansed with alcohol, and Betadine. Then using a 25 gauge needle, approximately 200ml normal saline was injected into right tissue equine science instructor(s). Patient tolerated well. Adequate hemostasis was achieved, [...] continue to expand her right breast tissue equine science instructor until she is at a size she is happy with. We would like this to be completed prior to starting radiation therapy. She does have an appointment scheduled to meet with Radiation Oncology at the end of the month. Continue with IV antibiotics per Infectious disease's recommendations. Continue to refrain from any heavy lifting, pushing or pulling. Follow up next week for tissue equine science instructor filled. She was advised to call the office any questions orconcerns in the interim. - Marisela Cuevas APRN-ESPERANZA 12/14/23 3:57 PM Please note that portions of this note were generated using voice recognition [employer] dictation software. Although every effort was made to ensure the accuracy of this automated mft, some errors in mft may have occurred. AMEENA Kennedy 12/14/23 1557 documented in this encounterSheltering Arms Hospital10-14-2024 History of Present illness Narrative* TATI Gordon - 12/14/2023 2:00 PM EDT POSTOPERATIVE VISIT DIAGNOSIS: Right IDC grade 3, ER 75, DC-, Yeb-3-lptqqsum (IHC score 1+), 1.8 cm, 6/12 nodes+ STAGE: ypT1c N2a DATE OF DIAGNOSIS: 04/10/2023 OPERATION PERFORMED: Right skin sparing mastectomy, right axillary lymph node dissection, left risk-reducing skin sparing mastectomy, right lymphovenous bypass and bilateral tissue expanders (10/29/2023); s/p I&D left breast w removal of tissue equine science instructor d/t infection (11/27/2023). GENETIC TESTING: No mutations MED ONC: Dr. Luis Hope RAD ONC: Referred PLASTICS: Dr. Jhon Gross PATHOLOGY: The following pathology was reviewed and discussed with the patient. [facility] [address] [place] [address] Surgical Pathology Consultation Patient Name:IKE FLANNERY:1970 (Age: 53)Gender:FTaken:4Reported:11/10/2023hysician(s):Christy He MD ([phone])Copy To:Jhon Gross, [facility] Systemession #:[id number]. Rec. #:[id number]: #[id number] Final Pathologic Diagnosis 1. Left breast, mastectomy: [...] IMPRESSION: -Right IDC grade 3, ER 75, DC-, Asu-9-uxsdkjdc (IHC score 1+); s/p right skin sparing mastectomy, right axillary lymph node dissection, left risk-reducing skin sparing mastectomy, right lymphovenous bypass and bilateral tissue expanders (10/29/2023); 1.8 cm, 6/12 nodes+; s/p I&D left breast w removal of tissue equine science instructor d/t infection (11/27/2023 PLAN: Discussed pathology report [...] to her next visit. Francisca Mason PA-C [facility] [phone] (phone) TATI Gordon 12/16/23 6903 documented in this encounterSheltering Arms Hospital10-11-2024 NoteSubjective Patient ID: Tia A Widman is a 53 y.o. female. 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 The tissue equine science instructor was removed on 26 November. A specific question would be when is she able to receive radiation therapy as part of her breast cancer treatment. 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 ER negative (weakly positive) DC negative HER2 negative. She received neoadjuvant chemotherapy with carboplatin and paclitaxel and Keytruda. She underwent double mastectomy in October 2023. Had a follow-up visit on 24 November, she had fluid aspiration from her left breast. This was smear positive for acid-fast bacilli; subsequent cultures grew Mycobacterium abscessus. The tissue equine science instructor was removed on 26 November. She appears [...] home antibiotic therapy. She was referred to [facility] infectious disease with a planned visit in mid December; we accommodated an earlier visit. She says that she takes trazodone intermittently for sleep. She does not take it regularly. She last took it last night. 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 Review [...] Exam Vitals reviewed. Exam conducted with a carpentry professional present. Constitutional: Appearance: Normal appearance. HENT: Head: [...] calor, no dolor, no tumor, no drainage. Driver Supervisor present No nipples Abdominal: General: Abdomen is [...] left breast aspirate- M. Abscessus; sent to [facility] on 04 Dec 2023 for susceptiblity. [...] Mycobacterium abscessus infection related to breast tissue equine science instructor which has been removed. Cultures were positive from 24 November. Breast equine science instructor was removed on 26 November. She appears to have been started on agents active against Mycobacterium abscessus on 04 December. She has specimens that have been sent to [facility] on the first week of November susceptibilities are pending. She has no signs or symptoms of systemic infection and her chest demonstrates no drainage or fluctuance. Assessment/Plan 53 y.o. female We will continue (more content not included)...[facility]10-11-[facility]24 Miscellaneous Notes* Telephone Encounter - [...] AM EDT [facility]* Telephone Encounter - Ana Ibrahim - 12/11/2023 10:24 AM EDT Needs TCM before 12/21 [facility]10-11-[facility]24 Telephone encounter Note* Telephone Encounter - Ana Ibrahim - 12/11/2023 10:24 AM EDT Mailbox full [facility]10-11-2024 Telephone encounter Note* Telephone Encounter - Ana Ibrahim - 12/11/2023 10:24 AM EDT he has upcoming appts with at least 3 specialties that is a lot with what she is going through. If she needs anything from me let me know- she could do telehealth too. - richie [facility]10-11-2024 Telephone encounter Note* Telephone Encounter - Ana Ibrahim - 12/11/2023 10:24 AM EDT Mailbox full [employer] [id number] Miscellaneous Notes* Telephone Encounter - Mela Berrios RN - 12/11/2023 9:15 AM EDT Transition of Care (*required) *Additional Questions/Concerns Requiring PCP Follow-Up: For TCM, patient would need appt on/before 12/22/23 This documentation is being used for Transition of Care purposes: Yes Goal: Patient will demonstrate a safe transition from hospital to home Diagnosis on Discharge: Postop infection of left breast tissue equine science instructor-culture with mycobacterium abscessus New rash Acute kidney injury History of breast cancer S/p bilateral mastectomies S/p bilateral breast reconstruction October 28, 2023 Discharge Specialty: Hem/Onc, Infectious Disease, and Nephrology *Name of Discharging Facility: [facility] Date of Facility Discharge: Admitted; 12/02/23 Discharged: 12/09/23 Date of Interactive Contact and Name of Technical Services Manager: 12/11/23 Patient: Ike Flannery *Medication Review [...] with Providers: Primary: AMEENA GARCIA Specialty: ID ([facility]): 12/11/23 Specialty: Surgical Oncology (TATI Mason): [...] Called patient mailbox full [facility] Note* Telephone Encounter - Mela Berrios RN - 12/11/2023 9:15 AM EDT Transition of Care (*required) *Additional Questions/Concerns Requiring PCP Follow-Up: For TCM, patient would need appt on/before 12/22/23 This documentation is being used for Transition of Care purposes: Yes Goal: Patient will demonstrate a safe transition from hospital to home Diagnosis on Discharge: Postop infection of left breast tissue equine science instructor-culture with mycobacterium abscessus New rash Acute kidney injury History of breast cancer S/p bilateral mastectomies S/p bilateral breast reconstruction October 28, 2023 Discharge Specialty: Hem/Onc, Infectious Disease, and Nephrology *Name of Discharging Facility: [facility] Date of Facility Discharge: Admitted; 12/02/23 Discharged: 12/09/23 Date of Interactive Contact and Name of Technical Services Manager: 12/11/23 Patient: Ike Flannery *Medication Review [...] Providers: Primary: RICHIE HANNA APRN-ESPERANZA Specialty: ID ([facility]): 12/11/23 Specialty: Surgical Oncology (TATI Mason): [...] Utilized/Needed by the Patient: [employer] [facility] [employer]10-11-2024 Telephone encounter Note* Telephone Encounter - Ana Ibrahim - 12/11/2023 9:15 AM EDT Called patient mailbox full [employer] [id number] History of Present illness Narrative* Og Morton [...] BMP in 1 week and follow-up withMD /TUFT MACHINE OPERATOR in renal clinic in 1 months time. [...] seroma status post removal of left breast equine science instructor on November 27, 2023 Hypertension Edema Depression/anxiety [...] 8 (L) 01/31/2022 Please contact me at [phone] (Office) or [phone] (Answering service) with any questions. Please feel free to contact me through [employer] Secure chat during the daytime hours, if no response after 5 minutes then call the answering service. 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 -has appointment January 13 WBC, platelets, creatinine, LFTs weekly while on antibiotics Prescription for imipenem provided to maintenance planner Follow-up CBC renal function WBC 4.3, [...] 60 min Stress: Stress Concern Present (02/27/2022) [place] [employer] - Occupational Stress Questionnaire Feeling of Stress : To some extent Social Connections: Socially Integrated (02/27/2022) Social Connection and Isolation Panel [NHANES] Frequency of Communication with Friends and Family: Twice a week Frequency of Social Gatherings with Friends and Family: Three times a week Attends [employer] Services: More than 4 times per year [...] Value Units Date/Time Resp Pathogens Panel/SARS CoV-2 [[id number]] Collected: 12/05/23 1158 Specimen: Nasopharynx Updated: 12/05/23 [...] COV 2 Not Detected Blood culture #2 [[id number]] Collected: 12/05/23 1040 Specimen: Blood Updated: 12/08/23 1508 Culture NO GROWTH 3 DAYS Blood culture #1 [[id number]] Collected: 12/05/23 1031 Specimen: Blood Updated: 12/08/23 1507 Culture NO GROWTH 3 DAYS Urine culture [[id number]] Collected: 12/02/23 2305 Specimen: Urine, Clean Catch Midstream Updated: 12/04/23 0709 Culture NO GROWTH AT <1000 CFU/mL Blood culture [[id number]] Collected: 12/02/23 2231 Specimen: Blood, Line Draw Updated: 12/08/23 0817 Specimen Notes SUBOPTIMAL VOLUME OF BLOOD COLLECTED, RESULTS MAY BE AFFECTED. Culture NO GROWTH 5 DAYS Blood culture [[id number]] Collected: 12/02/23 2213 Specimen: Blood, Line Draw [...] Please call with questions. Gino Flower APRN, DIAL SCREW ASSEMBLER [phone] This note was completed using a voice mft system. Every effort was made to ensure accuracy. However, inadvertent computerized mft errors may be present. Gino Flower APRN-DIAL SCREW ASSEMBLER 12/09/23 1346 Carlene Landon MD, personally performed kcuw-ze-yirf diagnostic evaluation on this patient I reviewed and performed all the ross component of the patient visit I reviewed CELINA history, exam and MDM - Carlene Noguera MD 12/09/23 2:08 PM * Amy Singh MD - 12/08/2023 5:15 PM EDT Images from the original note were not included. [facility] - 7 ONCOLOGY/STROKE [address] [place] [address] Hospital Medicine Progress Note Patient: Ike Flannery Date of : 1970 Room: [facility] PCP: AMEENA GARCIA Admission date: 12/02/2023 [...] tenderness or frontal sinus tenderness. Mouth/Throat: Lips: [place]. Mouth: Mucous membranes are moist. Pharynx: Oropharynx [...] Q12H RADHA Infusions: As Needed: acetaminophen albuterol gkklmgn-pekjhjbjpqfcn-yqsonjue calcium gluconate calcium gluconate calcium gluconate cyclobenzaprine [...] LIST Principal Problem: MIRNA (acute kidney injury) ([facility]) Active Problems: Hypertension Malignant neoplasm of lower-inner quadrant of right breast of female, estrogen receptor positive ([facility]) Cellulitis of left breast Infection [...] and plastic surgery following, referral sent to [facility] ID -continue cipro and clarithromycin, imipenem -benadryl PRN -follow cultures -Continue eliquis -Hold lisinopril, lasix and spironolactone until MIRNA improves -replace B12 -replace and monitor electrolytes per protocol and scale Amy Singh MD * Gino Flower APRN-DIAL SCREW ASSEMBLER - 12/08/2023 5:13 PM EDT [facility] - Daily Progress Note Ike Flannery Admission date/time 12/02/2023 9:55 PM Today's Date and Time: 12/08/2023, 5:14 PM Impression : 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 If patient remains afebrile, we will [...] 60 min Stress: Stress Concern Present (02/27/2022) [place] [employer] - Occupational Stress Questionnaire Feeling of Stress : To some extent Social Connections: Socially Integrated (02/27/2022) Social Connection and Isolation Panel [NHANES] Frequency of Communication with Friends and Family: Twice a week Frequency of Social Gatherings with Friends and Family: Three times a week Attends [employer] Services: More than 4 times per year [...] from last 7 days Lab Units 12/08/23 0512/07/2344912/06/23434 WBC X10E9/L 2.9* 2.7* 3.0* HEMOGLOBIN g/dL 8.1* 7.8* 7.8* HEMATOCRIT % 23.1* 22.3* 23.0* PLATELETS X10E9/L 147* 150 172 Results from last 7 days Lab Units 12/08/23 1303 12/08/23 0514 12/07/2344912/06/23 2110 12/06/23 043 POTASSIUM mmol/L 3.3* 3.2* 3.3* -- 3.5 [...] from last 7 days Lab Units 12/08/23 0512/07/2344912/06/23 0435 ALK PHOS U/L 64 56 55 ALT U/L 18 13 9 AST U/L 28 22 16 Lab Results Component Value Date CRP 2.6 (H) 11/26/2023 Lab Results Component Value Date SEDRATE 30 11/26/2023 Cultures: Microbiology Results Procedure Component Value Units Date/Time Resp Pathogens Panel/SARS CoV-2 [[id number]] Collected: 12/05/23 1158 Specimen: Nasopharynx Updated: 12/05/23 [...] COV 2 Not Detected Blood culture #2 [[id number]] Collected: 12/05/23 1040 Specimen: Blood Updated: 12/08/23 1508 Culture NO GROWTH 3 DAYS Blood culture #1 [[id number]] Collected: 12/05/23 1031 Specimen: Blood Updated: 12/08/23 1507 Culture NO GROWTH 3 DAYS Urine culture [[id number]] Collected: 12/02/23 2305 Specimen: Urine, Clean Catch Midstream Updated: 12/04/23 0709 Culture NO GROWTH AT <1000 CFU/mL Blood culture [[id number]] Collected: 12/02/23 2231 Specimen: Blood, Line Draw Updated: 12/08/23 0817 Specimen Notes SUBOPTIMAL VOLUME OF BLOOD COLLECTED, RESULTS MAY BE AFFECTED. Culture NO GROWTH 5 DAYS Blood culture [[id number]] Collected: 12/02/23 2213 Specimen: Blood, Line Draw [...] call with questions. Gino Flower APRN, CNP [phone] This note was completed using a voice mft system. Every effort was made to ensure accuracy. However, inadvertent computerized mft errors may be present. AMEENA Vallejo 12/08/23 1719 * Shereen Smallwood PA-C - 12/08/2023 3:46 PM EDT [facility] [address] [place] [id number] Office Jhon Gross MD, PhD AMEENA Kennedy [...] Value Units Date/Time Resp Pathogens Panel/SARS CoV-2 [[id number]] Collected: 12/05/23 1158 Specimen: Nasopharynx Updated: 12/05/23 [...] COV 2 Not Detected Blood culture #2 [[id number]] Collected: 12/05/23 1040 Specimen: Blood Updated: 12/08/23 1508 Culture NO GROWTH 3 DAYS Blood culture #1 [[id number]] Collected: 12/05/23 1031 Specimen: Blood Updated: 12/08/23 1507 Culture NO GROWTH 3 DAYS Urine culture [[id number]] Collected: 12/02/23 2305 Specimen: Urine, Clean Catch Midstream Updated: 12/04/23 0709 Culture NO GROWTH AT <1000 CFU/mL Blood culture [[id number]] Collected: 12/02/23 2231 Specimen: Blood, Line Draw Updated: 12/08/23 0817 Specimen Notes SUBOPTIMAL VOLUME OF BLOOD COLLECTED, RESULTS MAY BE AFFECTED. Culture NO GROWTH 5 DAYS Blood culture [[id number]] Collected: 12/02/23 2213 Specimen: Blood, Line Draw Updated: 12/08/23 0813 Specimen Notes SUBOPTIMAL VOLUME OF BLOOD COLLECTED, RESULTS MAY BE AFFECTED. Culture NO GROWTH 5 DAYS Assessment: Ike Flannery is a 53 y.o. female Post-Operative Day: 11 s/p removal of left breast tissue equine science instructor with I&D. 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 [...] seroma status post removal of left breast equine science instructor on November 27, 2023 Hypertension Edema Depression/anxiety [...] last 7 days Lab Units 12/08/23 1303 12/08/2351312/07/2344912/06/23210912/06/23 0435 SODIUM mmol/L -- 136 138 -- [...] 8 (L) 01/31/2022 Please contact me at [phone] (Office) or [phone] (Answering service) with any questions. Please feel free to contact me through [employer] Secure chat during the daytime hours, if no response after 5 minutes then call the answering service. Og Morton MD [facility] This note was created with the [...] not included. [facility] [address] [facility] [address] Hospital Medicine Progress Note Patient: Ike Flannery Date of : 1970 Room: [facility] PCP: AMEENA GARCIA Admission date: 12/02/2023 [...] tenderness or frontal sinus tenderness. Mouth/Throat: Lips: [place]. Mouth: Mucous membranes are moist. Pharynx: Oropharynx [...] ringer's, 100 mL/hr As Needed: acetaminophen albuterol uwbysur-uhbrxaeofresk-ecefrixm calcium gluconate calcium gluconate calcium gluconate cyclobenzaprine [...] LIST Principal Problem: MIRNA (acute kidney injury) ([facility]) Active Problems: Hypertension Malignant neoplasm of lower-inner [...] seroma status post removal of left breast equine science instructor on November 27, 2023 Hypertension Edema Depression/anxiety [...] last 7 days Lab Units 12/07/2344912/06/23210912/06/23 0435 12/05/23 1320 12/05/23 0545 SODIUM mmol/L [...] 8 (L) 01/31/2022 Please contact me at [phone] (Office) or [phone] (Answering service) with any questions. Please feel free to contact me through [employer] Secure chat during the daytime hours, if no response after 5 minutes then call the answering service. 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 Acute kidney [...] 60 min Stress: Stress Concern Present (02/27/2022) [place] [employer] - Occupational Stress Questionnaire Feeling of Stress : To some extent Social Connections: Socially Integrated (02/27/2022) Social Connection and Isolation Panel [NHANES] Frequency of Communication with Friends and Family: Twice a week Frequency of Social Gatherings with Friends and Family: Three times a week Attends [employer] Services: More than 4 times per year [...] last 7 days Lab Units 12/07/2344912/06/23 2110 12/06/235 12/05/23 1320 12/05/23 0545 POTASSIUM mmol/L 3.3* [...] days Lab Units 12/07/2344912/06/23 0435 12/05/23 0545 ALK PHOS U/L 56 55 58 ALT U/L 13 9 9 AST U/L 22 16 15 Lab Results Component Value Date CRP 2.6 (H) 11/26/2023 Lab Results Component Value Date SEDRATE 30 11/26/2023 Cultures: Microbiology Results Procedure Component Value Units Date/Time Resp Pathogens Panel/SARS CoV-2 [[id number]] Collected: 12/05/23 1158 Specimen: Nasopharynx Updated: 12/05/23 [...] COV 2 Not Detected Blood culture #2 [[id number]] Collected: 12/05/23 1040 Specimen: Blood Updated: 12/06/23 1508 Culture NO GROWTH 1 DAY Blood culture #1 [[id number]] Collected: 12/05/23 1031 Specimen: Blood Updated: 12/06/23 1507 Culture NO GROWTH 1 DAY Urine culture [[id number]] Collected: 12/02/23 2305 Specimen: Urine, Clean Catch Midstream Updated: 12/04/23 0709 Culture NO GROWTH AT <1000 CFU/mL Blood culture [[id number]] Collected: 12/02/23 2231 Specimen: Blood, Line Draw Updated: 12/07/23 0815 Specimen Notes SUBOPTIMAL VOLUME OF BLOOD COLLECTED, RESULTS MAY BE AFFECTED. Culture NO GROWTH 4 DAYS Blood culture [[id number]] Collected: 12/02/23 2213 Specimen: Blood, Line Draw [...] Please call with questions. Gino Flower APRN, ESPERANZA [phone] This note was completed using a voice mft system. Every effort was made to ensure accuracy. However, inadvertent computerized mft errors may be present. Gino Flower APRN-ESPERANZA 12/07/23 1113 I, Carlene Noguera MD, personally performed zfit-dq-hyew diagnostic evaluation on this patient I reviewed and performed all the ross component of the patient visit I reviewed CELINA history, exam and MDM - Carlene Noguera MD 12/07/23 12:53 PM * Nikki Rand [facility] - 12/07/2023 9:28 AM EDT [facility] Department of Pharmacy Pharmacist to Physician Communication The dose of ciprofloxacin for SSTI has been changed to 500 mg every 12 hours per the [facility] approved renal dosing guidelines, based on an estimated creatinine clearance is 35.1 mL/min (A) (by C-G formula based on SCr of 2.07 mg/dL (H)). Thank you, Nikki Rand [facility] * Shereen Smallwood PA-C - 12/07/2023 8:13 AM EDT Images from the original note were not included. [facility] [address] [place] [id number] Office Jhon Gross MD, PhD Marisela Cuevas, ROBER-ESPERANZA Smallwood PA-C Plastic Surgery Inpatient Progress Note Subjective: Pt doing well however expresses her desire to go home. She has not heard anything from [facility] in regards to consultation for her M. Abscessus infection. She specifically denies any areas of pain, erythema. She does state that she feels prickly this morning. [place]ail is currently running Objective: Pt is sitting [...] Value Units Date/Time Resp Pathogens Panel/SARS CoV-2 [[id number]] Collected: 12/05/23 1158 Specimen: Nasopharynx Updated: 12/05/23 [...] COV 2 Not Detected Blood culture #2 [[id number]] Collected: 12/05/23 1040 Specimen: Blood Updated: 12/07/23 1508 Culture NO GROWTH 2 DAYS Blood culture #1 [[id number]] Collected: 12/05/23 1031 Specimen: Blood Updated: 12/07/23 1507 Culture NO GROWTH 2 DAYS Urine culture [[id number]] Collected: 12/02/23 2305 Specimen: Urine, Clean Catch Midstream Updated: 12/04/23 0709 Culture NO GROWTH AT <1000 CFU/mL Blood culture [[id number]] Collected: 12/02/23 2231 Specimen: Blood, Line Draw Updated: 12/08/23 08 Specimen Notes SUBOPTIMAL VOLUME OF BLOOD COLLECTED, RESULTS MAY BE AFFECTED. Culture NO GROWTH 5 DAYS Blood culture [[id number]] Collected: 12/02/23 2213 Specimen: Blood, Line Draw [...] compliance with treatment. INÉS PAYNE MD, PhD [facility] ' Shereen Smallwood PA-C 12/08/23 1124 * Elayne Chow MD - 12/06/2023 10:03 AM EDT Images from the original note were not included. [facility] INTER[facility] - [address]OGY/[address] [place] [address] Hospital Medicine Progress Note Patient: Ike Flannery Date of : 1970 Room: [facility] PCP: AMEENA GARCIA Admission date: 12/02/2023 [...] tenderness or frontal sinus tenderness. Mouth/Throat: Lips: [place]. Mouth: Mucous membranes are moist. Pharynx: Oropharynx [...] mL/hr (12/05/23 0641) As Needed: acetaminophen albuterol bombosd-ncrijlmcrajbb-cchurpwx calcium gluconate calcium gluconate calcium gluconate cyclobenzaprine [...] LIST Principal Problem: MIRNA (acute kidney injury) ([facility]) Active Problems: Hypertension Malignant neoplasm of lower-inner quadrant of right breast of female, estrogen receptor positive ([facility]) Cellulitis of left breast Infection [...] monitor electrolytes per protocol and scale Liliane Valle, ROBER-DIAL SCREW ASSEMBLER 12/06/23 1436 Physician Attestation I personally performed [...] days Lab Units 12/06/2343412/05/2354412/04/2330412/03/23 1737 12/03/23 1628 12/03/23 03512/02/23 2305 12/02/23 2213 TOTAL PROTEIN g/dL 5.8* [...] Results from last 7 days Lab Units 12/06/2343412/05/2354412/04/23 03012/03/23 03512/02/23 2213 WBC X10E9/L 3.0* 3.9* 4.3 5.8 [...] seroma status post removal of left breast equine science instructor on November 27, 2023 Hypertension Edema Depression/anxiety [...] to secondary to chemotherapy. renal tubular defect Eipfanio Henry M.D. For questions please call: Answering Service at [phone] Or Office at [phone] This note was created with the assistance [...] : Postop infection of left breast tissue equine science instructor-culture growing acid-fast bacilli Acute kidney injury History [...] 60 min Stress: Stress Concern Present (02/27/2022) [place] [employer] - Occupational Stress Questionnaire Feeling of Stress : To some extent Social Connections: Socially Integrated (02/27/2022) Social Connection and Isolation Panel [NHANES] Frequency of Communication with Friends and Family: Twice a week Frequency of Social Gatherings with Friends and Family: Three times a week Attends [employer] Services: More than 4 times per year [...] Value Units Date/Time Resp Pathogens Panel/SARS CoV-2 [[id number]] Collected: 12/05/23 1158 Specimen: Nasopharynx Updated: 12/05/23 [...] COV 2 Not Detected Blood culture #2 [[id number]] Resulted: 12/05/23 1041 Specimen: Blood, Peripheral Draw Updated: 12/05/23 1041 Blood culture #1 [[id number]] Resulted: 12/05/23 1032 Specimen: Blood, Peripheral Draw Updated: 12/05/23 1032 Urine culture [[id number]] Collected: 12/02/23 2305 Specimen: Urine, Clean Catch Midstream Updated: 12/04/23 0709 Culture NO GROWTH AT <1000 CFU/mL Blood culture [[id number]] Collected: 12/02/23 2231 Specimen: Blood, Line Draw Updated: 12/05/23 0815 Specimen Notes SUBOPTIMAL VOLUME OF BLOOD COLLECTED, RESULTS MAY BE AFFECTED. Culture NO GROWTH 2 DAYS Blood culture [[id number]] Collected: 12/02/232212 Specimen: Blood, Line Draw Updated: 12/05/23814 Specimen [...] This note was completed using a voice mft system. Every effort was made to ensure accuracy. However, inadvertent computerized mft errors may be present. * Dorothy Yumi Morales, [facility] - 12/05/2023 6:53 PM EDT Pharmacy Consult [...] Hollis PA-C 5 mg at 12/05/23 0904 ypikgus-difvdnnwxrgpw-zrehigow (EXCEDRIN MIGRAINE) 250-250-65 mg per tablet 2 tablet 2 tablet oral Q6H PRN Liliane Valle APRN-DIAL SCREW ASSEMBLER 2 tablet at 12/04/23 0809 calcium gluconate [...] lactated ringers infusion 100 mL/hr intravenous Continuous Epfianio Henry MD 100 mL/hr at 12/05/23 0641 [...] therapy as needed. Submitted by: Dorothy Morales [facility] * Elayne Chow MD - 12/05/2023 1:30 PM EDT Images from the original note were not included. [facility] INTERNAL MEDICINE [facility] - 7 ONCOLOGY/STROKE [address] [place] [address] Hospital Medicine Progress Note Patient: Ike Flannery Date of : 1970 Room: [facility] PCP: AMEENA GARCIA Admission date: 12/02/2023 [...] tenderness or frontal sinus tenderness. Mouth/Throat: Lips: [place]. Mouth: Mucous membranes are moist. Pharynx: Oropharynx [...] mL/hr (12/05/23 0641) As Needed: acetaminophen albuterol rdqknrd-bltybmbhbsoxr-csqesqhk calcium gluconate calcium gluconate calcium gluconate cyclobenzaprine [...] LIST Principal Problem: MIRNA (acute kidney injury) ([facility]) Active Problems: Hypertension Malignant neoplasm of lower-inner quadrant of right breast of female, estrogen receptor positive ([facility]) Cellulitis of left breast Infection of deep [...] dcx. Abx changes made per ID. Liliane Valle APRN-DIAL SCREW ASSEMBLER 12/05/23 1527 Physician Attestation I personally performed [...] 12/02/23 2305 12/02/23 2213 TOTAL PROTEIN g/dL 5.6* 5.4* -- 5.4* [...] seroma status post removal of left breast equine science instructor on November 27, 2023 Hypertension Edema Depression/anxiety [...] For questions please call: Answering Service at [phone] Or Office at [phone] This note was created with the assistance of a speech-recognition program. Although the intention is to generate a document that actually reflects the content of the visit, no guarantees can be provided that every mistake has been identified and corrected by editing. * Elayne Chow MD - 12/04/2023 3:39 PM EDT Images from the original note were not included. [facility] INTERNAL MEDICINE [facility] - 7 ONCOLOGY/STROKE [address] [place] [address] Hospital Medicine Progress Note Patient: Ike Flannery Date of : 1970 Room: [facility] PCP: RICHIE HANNA APRN-ESPERANZA Admission date: [...] chills [facility]: Status: improved. No overnight events [...] tenderness or frontal sinus tenderness. Mouth/Throat: Lips: [place]. Mouth: Mucous membranes are moist. Pharynx: Oropharynx [...] mL/hr (12/04/23 1212) As Needed: acetaminophen albuterol bswnito-chyjnlrajzfev-jbzvsuld calcium gluconate calcium gluconate calcium gluconate cyclobenzaprine [...] Protein Urine Random 130 (H) <120 mg/L U/Pro/Retail Advertising Executive Ratio Calc 0.30 (H) <0.2 Sodium, urine, [...] LIST Principal Problem: MIRNA (acute kidney injury) ([facility]) Active Problems: Hypertension Malignant neoplasm of lower-inner quadrant of right breast of female, estrogen receptor positive ([facility]) Cellulitis of left breast Infection of deep [...] and the plan . MD Liliane Madrid, WEB DEVELOPMENT INSTRUCTOR-DIAL SCREW ASSEMBLER 12/04/231743 * Carlene Noguera MD - 12/04/2023 11:27 AM EDT Images from the original note were not included. 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 equine science instructor-culture growing acid-fast bacilli Acute kidney injury History [...] 60 min Stress: Stress Concern Present (02/27/2022) [place] [employer] - Occupational Stress Questionnaire Feeling of Stress : To some extent Social Connections: Socially Integrated (02/27/2022) Social Connection and Isolation Panel [NHANES] Frequency of Communication with Friends and Family: Twice a week Frequency of Social Gatherings with Friends and Family: Three times a week Attends [employer] Services: More than 4 times per year [...] 133/83 134/84 Pulse: 90 78 75 Resp: Temp: 37.7 C (99.9 F) 37.1 C [...] 7 days Lab Units 12/04/23 03012/03/23 0350 12/02/23 [...] Lab Units 12/04/23 0305 12/03/23 0350 12/02/233 ALK PHOS U/L 56 60 69 ALT U/L 9 10 12 AST U/L 15 19 24 Lab Results Component Value Date CRP 2.6 (H) 11/26/2023 Lab Results Component Value Date SEDRATE 30 11/26/2023 Cultures: Microbiology Results Procedure Component Value Units Date/Time Urine culture [[id number]] Collected: 12/02/23 2305 Specimen: Urine, Clean Catch Midstream Updated: 12/04/23 0709 Culture NO GROWTH AT <1000 CFU/mL Blood culture [[id number]] Collected: 12/02/23 2231 Specimen: Blood, Line Draw Updated: 12/04/23 0815 Specimen Notes SUBOPTIMAL VOLUME OF BLOOD COLLECTED, RESULTS MAY BE AFFECTED. Culture NO GROWTH 1 DAY Blood culture [[id number]] Collected: 12/02/232212 Specimen: Blood, Line Draw Updated: 12/04/23 0815 Specimen Notes SUBOPTIMAL VOLUME OF BLOOD COLLECTED, RESULTS MAY BE AFFECTED. Culture NO GROWTH 1 DAY Anaerobic culture [[id number]] Collected: 11/27/23 1548 Specimen: Body Fluid from Breast, Left Updated: 12/02/23 0851 Specimen Notes SPECIMEN A Culture NO GROWTH 5 DAYS Fungal culture includes fungal smear [[id number]] Collected: 11/27/23 1548 Specimen: Body Fluid from Breast, Left Updated: 11/28/23 0702 Specimen Notes SPECIMEN A Fungal smear -- NO FUNGAL ELEMENTS SEEN ON DIRECT SMEAR Culture PENDING AFB culture concentrated includes AFB smear [[id number]] (Abnormal) Collected: 11/27/23 1548 Specimen: Body Fluid from Breast, Left Updated: 12/01/23 1056 Specimen Notes SPECIMEN A AFB Smear NO ACID FAST BACILLI (CONCENTRATED SMEAR) Culture ACID FAST BACILLI ISOLATED Aspirate culture includes gram stain [[id number]] (Abnormal) Collected: 11/27/23 1548 Specimen: Aspirate Atr [...] This note was completed using a voice mft system. Every effort was made to ensure accuracy. However, inadvertent computerized mft errors may be present. * DAVID Tinajero [...] right breast of female, estrogen receptor positive ([facility]) S/P breast reconstruction, bilateral Cellulitis of left breast MIRNA (acute kidney injury) ([facility]) Past Medical History: Past Medical History: Diagnosis Date Breast cancer ([facility]) 2023 mammary carcinoma Deep vein thrombosis ([facility]) 09/18/2023 Left calf Hypertension Knee pain PONV (postoperative nausea and vomiting) Port-A-Cath in place 05/13/2023 Visual impairment Glasses Past Surgical History: Past Surgical History: Procedure Laterality Date ARTHROSCOPIC REPAIR ACL Right 2006 ARTHROSCOPIC REPAIR ACL Left 08/26/2021 BREAST BIOPSY Right 2023 mammary carcinoma EXCISION LYMPH NODE AXILLARY DISSECTION Right 10/28/2023 Performed by Christy He MD at [facility] HYSTERECTOMY IMMEDIATE BREAST RECONSTRUCTION WITH TISSUE RN CRITICAL CARE PLACEMENT Bilateral 10/28/2023 Performed by Jhon Gross MD at [facility] INCISION DRAINAGE BREAST Left 11/27/2023 Performed by Jhon Gross MD at [facility] MAGNETIC SEED LOCALIZATION EXCISION/BIOPSY MASS BREAST (MAG SEED LOCALIZED TARGETED DISSECTION FOR RETRIEVAL OF PREVIOUSLY CLIPPED LYMPH NODE) Right 10/28/2023 Performed by Christy He MD at [facility] MASTECTOMY BREAST SIMPLE RISK REDUCING SKIN SPARING Left 10/28/2023 Performed by Christy He MD at [facility] MASTECTOMY BREAST SIMPLE SKIN SPARING Right 10/28/2023 Performed by Christy He MD at [facility] MENISCECTOMY Bilateral 2022 PORTACATH PLACEMENT Left left chest REMOVAL RN CRITICAL CARE TISSUE BREAST Left 11/27/2023 Performed by Jhon Gross MD at [facility] RIGHT AXILLARY PROPHYLACTIC BYPASS LYMPHOVENOUS Right 10/28/2023 Performed by Jhon Gross MD at [facility] TONSILLECTOMY AND ADENOIDECTOMY Age 3 [...] VERYLOWLIP 16 01/31/2022 No results found for: [id number] No results found for: FOLATE No results [...] Hollis PA-C 5 mg at 12/04/23 0809 eeeecja-jnujydqnggkmi-keljgdgq (EXCEDRIN MIGRAINE) 250-250-65 mg per tablet 2 tablet 2 tablet oral Q6H PRN Liliane Valle APRN-DIAL SCREW ASSEMBLER 2 tablet at 12/04/23 0809 calcium gluconate [...] (40 mg/mL premix) 2,000 mg intravenous PRN Chirs Hollis PA-C Stopped at 12/03/23 0817 metoprolol [...] Skin (per nursing flow sheets): Skin Color: [place]; Pale (12/04/23 08) Skin Temp: Warm; Dry (12/04/23 08) Skin Integrity: Intact (12/02/23 2335) Wound (per [...] Scale, 12/02) Usual Body Weight: see above [place] Body Weight: 70.4 kg Percent [place] Body Weight: 138% Weight Changes: Weight fluctuations noted. With weight loss of 18 lbs x 5 months, 8% Body Mass Index: Body mass index is 29.79 kg/m . BMI Category: Pre-obese (25.00- 29.99) Comparative Standards: Estimated Energy Needs: 5100-6201 kcals daily. Method and weight used: 25-30 kcal/kg IBW Estimated Protein Needs: 84-141 grams daily. Method and weight used: 1.2-2 g protein/kg IBW Estimated Fluid Needs: 3448-3546 ml daily. Method weight used: 25-30 ml/kg [...] ofcare. 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 Although the intention is to generate a document that actually reflects the content of the visit, no guarantees can be provided that every mistake has been identified and corrected by editing. * Shereen Smallwood PA-C - 12/04/2023 8:59 AM EDT Images from the original note were not included. [facility] [address] [place] [address] Office Jhon Gross MD, PhD Marisela Cuevas, WEB DEVELOPMENT INSTRUCTOR-DIAL SCREW ASSEMBLER Shereen Smallwood PA-C Plastic Surgery Inpatient Progress [...] Procedure Component Value Units Date/Time Urine culture [[id number]] Collected: 12/02/23 8064 Specimen: Urine, Clean Catch Midstream Updated: 12/04/23 0709 Culture NO GROWTH AT <1000 CFU/mL Blood culture [[id number]] Collected: 12/02/23 2231 Specimen: Blood, Line Draw Updated: 12/04/23 0815 Specimen Notes SUBOPTIMAL VOLUME OF BLOOD COLLECTED, RESULTS MAY BE AFFECTED. Culture NO GROWTH 1 DAY Blood culture [[id number]] Collected: 12/02/23 2213 Specimen: Blood, Line Draw Updated: 12/04/23 0815 Specimen Notes SUBOPTIMAL VOLUME OF BLOOD COLLECTED, RESULTS MAY BE AFFECTED. Culture NO GROWTH 1 DAY Anaerobic culture [[id number]] Collected: 11/27/23 1548 Specimen: Body Fluid from Breast, Left Updated: 12/02/23 0851 Specimen Notes SPECIMEN A Culture NO GROWTH 5 DAYS Fungal culture includes fungal smear [[id number]] Collected: 11/27/23 1548 Specimen: Body Fluid from Breast, Left Updated: 11/28/23 0702 Specimen Notes SPECIMEN A Fungal smear -- NO FUNGAL ELEMENTS SEEN ON DIRECT SMEAR Culture PENDING AFB culture concentrated includes AFB smear [[id number]] (Abnormal) Collected: 11/27/23 1548 Specimen: Body Fluid from Breast, Left Updated: 12/01/23 1056 Specimen Notes SPECIMEN A AFB Smear NO ACID FAST BACILLI (CONCENTRATED SMEAR) Culture ACID FAST BACILLI ISOLATED Aspirate culture includes gram stain [[id number]] (Abnormal) Collected: 11/27/23 1548 Specimen: Aspirate Atr Updated: 12/01/23 1544 Specimen Notes SPECIMEN A Gram Stain Result >25 WHITE BLOOD CELLS/LPF 0 SQUAMOUS EPITHELIAL CELLS/LPF NO ORGANISMS SEEN Culture MODERATE ACID FAST BACILLI ISOLATED REPORT UPDATED GROWTH OBSERVED AT 48 HOURS Assessment: Ike Flannery is a 53 y.o. 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 Patient was initially referred to [facility] however this is out of network for her insurance, referrals were sent to [facility], [facility] and [facility]. [facility] is out of network, however [facility] could not get her in until December or January. Currently waiting to hear back from [facility]. - patient transitioned to oral clindamycin and Cipro for antibiotic coverage and MIRNA secondary to vancomycin. All questions were answered to her satisfaction. She was counseled regarding my impressions, instructions for management and the importance of compliance with treatment. INÉS PAYNE MD, PhD [facility] Shereen Smallwood PA-C 12/04/23 0906 * Shereen Smallwood PA-C - 12/03/2023 8:58 AM EDT Images from the original note were not included. [facility] [address] [place] [address] [address] [place] [id number] Office Jhon Gross MD, PhD Marisela Cuevas, WEB DEVELOPMENT INSTRUCTOR-DIAL SCREW ASSEMBLER Shereen Smallwood PA-C Plastic Surgery Inpatient Progress [...] Procedure Component Value Units Date/Time Urine culture [[id number]] Collected: 12/02/23 2341 Specimen: Urine Updated: 12/03/23 0829 Blood culture [[id number]] Collected: 12/02/232235 Specimen: Blood, Peripheral Draw Updated: 12/02/232235 Blood culture [[id number]] Collected: 12/02/232235 Specimen: Blood, Peripheral Draw Updated: 12/02/232235 Anaerobic culture [[id number]] Collected: 11/27/23 154 Specimen: Body Fluid from Breast, Left Updated: 12/02/23 0851 Specimen Notes SPECIMEN A Culture NO GROWTH 5 DAYS Fungal culture includes fungal smear [[id number]] Collected: 11/27/23 1548 Specimen: Body Fluid from Breast, Left Updated: 11/28/23 0702 Specimen Notes SPECIMEN A Fungal smear -- NO FUNGAL ELEMENTS SEEN ON DIRECT SMEAR Culture PENDING AFB culture concentrated includes AFB smear [[id number]] (Abnormal) Collected: 11/27/23 1548 Specimen: Body Fluid from Breast, Left Updated: 12/01/23 1056 Specimen Notes SPECIMEN A AFB Smear NO ACID FAST BACILLI (CONCENTRATED SMEAR) Culture ACID FAST BACILLI ISOLATED Aspirate culture includes gram stain [[id number]] (Abnormal) Collected: 11/27/23 1548 Specimen: Aspirate Atr Updated: 12/01/23 1544 Specimen Notes SPECIMEN A Gram Stain Result >25 WHITE BLOOD CELLS/LPF 0 SQUAMOUS EPITHELIAL CELLS/LPF NO ORGANISMS SEEN Culture MODERATE ACID FAST BACILLI ISOLATED REPORT UPDATED GROWTH OBSERVED AT 48 HOURS Mrsa Pcr nasal swab [[id number]] Collected: 11/27/23 0020 Specimen: Nasal Updated: 11/27/23 0957 Mrsa PCR Negative Blood culture [[id number]] Collected: 11/26/23 1715 Specimen: Blood Updated: 12/01/232007 Culture NO GROWTH 5 DAYS Assessment: Ike Flannery is a 53 y.o. 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 - patient with positive id from her office aspirate as well as intraoperative cultures. Infectious Disease was reaching out for referral to [facility]. Patient lives in [place], wondering if [facility] would be an option. - [...] compliance with treatment. INÉS PAYNE MD, PhD [facility] Shereen Smallwood PA-C [...] serum creatinine please re-consult. [facility] Miscellaneous Notes* Telephone Encounter - Nabila Mora CMA - 12/09/2023 3:43 PM EDT IKE FLANNERY (Ross: [id number]) [facility] your [facility] request. You may close this dialog, return to your dashboard, and perform other tasks. To check for an update later, open this request again from your dashboard. If [employer] has not replied to your request within 24 hours please contact [employer] at (TTY ) PA form to be scanned into chart. documented in [facility] Telephone encounter Note* Telephone Encounter - Nabila Mora CMA - 12/09/2023 3:43 PM EDT IKE FLANNERY (Ross: [id number]) [employer] has not yet replied to your PA request. You may close this dialog, return to your dashboard, and perform other tasks. To check for an update later, open this request again from your dashboard. If [employer] has not replied to your request within 24 hours please contact [employer] at (TTY ) PA form to be scanned into chart. [facility] Plan of care note* Plan of Care - Kahlil Gregorio RN - 12/09/2023 3:21 PM EDT Patient remains free of falls and injuries. Patient also continues to deny any pain. [facility] Miscellaneous Notes* Plan of Care - Kahlil Gregorio RN - 12/09/2023 3:21 PM EDT Patient remains free of falls and injuries. Patient also continues to deny any pain. * Plan of Care - Aliza Benito RN - 12/09/2023 4:18 AM EDT Problem: Low Risk Fall Score Description: Pick[place] Fall Score of 0 - 24 or indicated by [facility] Assessment Goal: Patient should be free from fall Description: Interventions: 1. [place] to environment 2. Hourly rounds addressing the [...] non-skid footwear 11. Teach patient and patient u.s. representative to maintain environment for safety and engage in all aspects of fall prevention program Outcome: Progressing Note: Evaluation of progress towards goal: Pt remains free from falls. Will continue to provide a safe environment. Problem: Pain Goal: Patient goal is pain score less than 4, able to rest, and participant in treatment plan as appropriate Description: INTERVENTIONS: 1. Encourage patient or legal u.s. representative to report early pain and ask [...] per policy 9. Teach patient or legal u.s. representative interventions for comforting Outcome: Progressing Note: [...] at the bedside 7. Instruct patient/ patient u.s. representative about use of safety devices 8. Include patient/ patient u.s. representative in decisions related to safety Outcome: [...] hygiene technique 7. Identify and instruct patient/patient u.s. representative in use of appropriate isolation precautionsfor identified infection/symptoms 8. Provide and discuss with patient/patient u.s. representative on educational MDRO sheet 9. Encourage and monitor nutritional status daily and consult supervisor yard if indicated 10. Implement neutropenic guidelines as needed 11. Review exposure to history of communicable disease and recent travel history on admission 12. Encourage annual influenza vaccine 13. Encourage pneumonia vaccine Outcome: Progressing Note: Evaluation of progress towards goal: pt remains afebrile, currently on antibiotics Problem: Knowledge Deficit Goal: Patient/patient u.s. representative demonstrates understanding of disease process, treatment [...] Collaborate with ancillary departments 14. Include patient/patient u.s. representative in decisions related to anxiety Outcome: [...] providing care 6. Collaborate with pastoral/spiritual care, 7th grade social studies teacher, mental health counselor as needed. 7. Instruct patient on diversional activities such as physical activity, distraction, and deep breathing exercises to assist with coping 8. Involve patient's u.s. representative in care Outcome: Progressing Note: Evaluation [...] hydration as ordered 5. Instruct patient/ legal u.s. representative on nutrition/diet; fluid/hydration restrictions as appropriate Outcome: Progressing Note: Evaluation of progress towards goal: electrolytes are continuing to be monitored and replacedper protocol * Plan of Care - Claudia Masterson LPN - 12/08/2023 3:27 PM EDT Problem: Low Risk Fall Score Description: [place] Fall Score of 0 - 24 or indicated by [facility] Assessment Goal: Patient should be free from fall Description: Interventions: 1. [place] to environment 2. Hourly rounds addressing the [...] non-skid footwear 11. Teach patient and patient u.s. representative to maintain environment for safety and engage in all aspects of fall prevention program Outcome: Progressing Note: Evaluation of progress towards goal: pt remains free from falls at this time. Problem: Pain Goal: Patient goal is pain score less than 4, able to rest, and participant in treatment plan as appropriate Description: INTERVENTIONS: 1. Encourage patient or legal u.s. representative to report early pain and ask [...] per policy 9. Teach patient or legal u.s. representative interventions for comforting Outcome: Progressing Note: [...] at the bedside 7. Instruct patient/ patient u.s. representative about use of safety devices 8. Include patient/ patient u.s. representative in decisions related to safety Outcome: [...] hygiene technique 7. Identify and instruct patient/patient u.s. representative in use of appropriate isolation precautionsfor identified infection/symptoms 8. Provide and discuss with patient/patient u.s. representative on educational MDRO sheet 9. Encourage and monitor nutritional status daily and consult supervisor yard if indicated 10. Implement neutropenic guidelines as needed 11. Review exposure to history of communicable disease and recent travel history on admission 12. Encourage annual influenza vaccine 13. Encourage pneumonia vaccine Outcome: Progressing Note: Evaluation of progress towards goal: pt remains afebrile at this time. Problem: Knowledge Deficit Goal: Patient/patient u.s. representative demonstrates understanding of disease process, treatment [...] Collaborate with ancillary departments 14. Include patient/patient u.s. representative in decisions related to anxiety Outcome: [...] providing care 6. Collaborate with pastoral/spiritual care, 7th grade social studies teacher, mental health counselor as needed. 7. Instruct patient on diversional activities such as physical activity, distraction, and deep breathing exercises to assist with coping 8. Involve patient's u.s. representative in care Outcome: Progressing Note: Evaluation [...] hydration as ordered 5. Instruct patient/ legal u.s. representative on nutrition/diet; fluid/hydration restrictions as appropriate Outcome: Progressing Note: Evaluation of progress towards goal: electrolytes replaced within normal limits at this time. * Discharge Planning Note - Mariah Starr RN - 12/08/2023 3:23 PM EDT DISCHARGE PLANNING NOTE Patient discussed in DTRs. Barrier to discharge is ID plan. 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 Task sent to [facility] to get appointment set up. Plan is for patient to be discharged on Primaxin IV - sent [facility] olga sandoval. - MARIAH STARR RN 12/08/23 3:26 PM Primaxin IV is 100% covered. [facility]. Medication will be delivered to the patient's home between 5-9pm. Spoke with Skye at [facility] and they have the standing order for weekly labs and weekly dressing change. Patient updated and agreeable with plan to discharge home this afternoon. Patient has appointment set for 01/14/[address] Herman Lui. - MARIAH STARR RN 12/09/23 2:19 PM CRF sent to [employer]. - MARIAH STARR RN 12/09/23 3:04 PM * Plan of Care - Aliza Benito RN - 12/08/2023 3:32 AM EDT Problem: Low Risk Fall Score Description: Pickens Fall Score of 0 - 24 or indicated by [facility] Assessment Goal: Patient should be free from fall Description: Interventions: 1. [place] to environment 2. Hourly rounds addressing the [...] non-skid footwear 11. Teach patient and patient u.s. representative to maintain environment for safety and engage in all aspects of fall prevention program Outcome: Progressing Note: Evaluation of progress towards goal: Pt remains free from falls. Will continue to provide a safe environment. Problem: Pain Goal: Patient goal is pain score less than 4, able to rest, and participant in treatment plan as appropriate Description: INTERVENTIONS: 1. Encourage patient or legal u.s. representative to report early pain and ask [...] per policy 9. Teach patient or legal u.s. representative interventions for comforting Outcome: Progressing Note: [...] at the bedside 7. Instruct patient/ patient u.s. representative about use of safety devices 8. Include patient/ patient u.s. representative in decisions related to safety Outcome: [...] hygiene technique 7. Identify and instruct patient/patient u.s. representative in use of appropriate isolation precautionsfor identified infection/symptoms 8. Provide and discuss with patient/patient u.s. representative on educational MDRO sheet 9. Encourage and monitor nutritional status daily and consult supervisor yard if indicated 10. Implement neutropenic guidelines as needed 11. Review exposure to history of communicable disease and recent travel history on admission 12. Encourage annual influenza vaccine 13. Encourage pneumonia vaccine Outcome: Progressing Note: Evaluation of progress towards goal: pt remains afebrile at this time, antibiotics are administered as ordered Problem: Knowledge Deficit Goal: Patient/patient u.s. representative demonstrates understanding of disease process, treatment [...] Collaborate with ancillary departments 14. Include patient/patient u.s. representative in decisions related to anxiety Outcome: [...] providing care 6. Collaborate with pastoral/spiritual care, 7th grade social studies teacher, mental health counselor as needed. 7. Instruct patient on diversional activities such as physical activity, distraction, and deep breathing exercises to assist with coping 8. Involve patient's u.s. representative in care Outcome: Progressing Note: Evaluation [...] hydration as ordered 5. Instruct patient/ legal u.s. representative on nutrition/diet; fluid/hydration restrictions as appropriate [...] Description: INTERVENTIONS: 1. Encourage patient or legal u.s. representative to report early pain and ask [...] per policy 9. Teach patient or legal u.s. representative interventions for comforting Outcome: Progressing Note: [...] at the bedside 7. Instruct patient/ patient u.s. representative about use of safety devices 8. Include patient/ patient u.s. representative in decisions related to safety Outcome: [...] hygiene technique 7. Identify and instruct patient/patient u.s. representative in use of appropriate isolation precautionsfor identified infection/symptoms 8. Provide and discuss with patient/patient u.s. representative on educational MDRO sheet 9. Encourage and monitor nutritional status daily and consult supervisor yard if indicated 10. Implement neutropenic guidelines as needed 11. Review exposure to history of communicable disease and recent travel history on admission 12. Encourage annual influenza vaccine 13. Encourage pneumonia vaccine Outcome: Progressing Note: Evaluation of progress towards goal: pt afebrile. WBC 2.7 Problem: Knowledge Deficit Goal: Patient/patient u.s. representative demonstrates understanding of disease process, treatment [...] be free from fall Description: Interventions: 1. [place] to environment 2. Hourly rounds addressing the [...] non-skid footwear 11. Teach patient and patient u.s. representative to maintain environment for safety and engage in all aspects of fall prevention program Outcome: Progressing Note: Evaluation of progress towards goal: Pt remains free from falls. Will continue to provide a safe environment. Problem: Pain Goal: Patient goal is pain score less than 4, able to rest, and participant in treatment plan as appropriate Description: INTERVENTIONS: 1. Encourage patient or legal u.s. representative to report early pain and ask [...] per policy 9. Teach patient or legal u.s. representative interventions for comforting Outcome: Progressing Note: [...] at the bedside 7. Instruct patient/ patient u.s. representative about use of safety devices 8. Include patient/ patient u.s. representative in decisions related to safety Outcome: [...] hygiene technique 7. Identify and instruct patient/patient u.s. representative in use of appropriate isolation precautionsfor identified infection/symptoms 8. Provide and discuss with patient/patient u.s. representative on educational MDRO sheet 9. Encourage and monitor nutritional status daily and consult supervisor yard if indicated 10. Implement neutropenic guidelines as needed 11. Review exposure to history of communicable disease and recent travel history on admission 12. Encourage annual influenza vaccine 13. Encourage pneumonia vaccine Outcome: Progressing Note: Evaluation of progress towards goal: patient remains on antibiotics at this time, monitoring for s/s of infection Problem: Knowledge Deficit Goal: Patient/patient u.s. representative demonstrates understanding of disease process, treatment [...] Collaborate with ancillary departments 14. Include patient/patient u.s. representative in decisions related to anxiety Outcome: [...] providing care 6. Collaborate with pastoral/spiritual care, 7th grade social studies teacher, mental health counselor as needed. 7. Instruct patient on diversional activities such as physical activity, distraction, and deep breathing exercises to assist with coping 8. Involve patient's u.s. representative in care Outcome: Progressing Note: Evaluation [...] hydration as ordered 5. Instruct patient/ legal u.s. representative on nutrition/diet; fluid/hydration restrictions as appropriate Outcome: Progressing Note: Evaluation of progress towards goal: electrolytes are within range at this time * Plan of Care - Corrina Richardson RN - 12/06/2023 9:51 AM EDT Problem: Pain Goal: Patient goal is pain score less than 4, able to rest, and participant in treatment plan as appropriate Description: INTERVENTIONS: 1. Encourage patient or legal u.s. representative to report early pain and ask [...] per policy 9. Teach patient or legal u.s. representative interventions for comforting Outcome: Progressing Note: [...] at the bedside 7. Instruct patient/ patient u.s. representative about use of safety devices 8. Include patient/ patient u.s. representative in decisions related to safety Outcome: [...] hygiene technique 7. Identify and instruct patient/patient u.s. representative in use of appropriate isolation precautionsfor identified infection/symptoms 8. Provide and discuss with patient/patient u.s. representative on educational MDRO sheet 9. Encourage and monitor nutritional status daily and consult supervisor yard if indicated 10. Implement neutropenic guidelines as needed 11. Review exposure to history of communicable disease and recent travel history on admission 12. Encourage annual influenza vaccine 13. Encourage pneumonia vaccine Outcome: Progressing Note: Evaluation of progress towards goal: pt afebrile this AM. WBC 3.0 Positive Wound culture [facility] Problem: Knowledge Deficit Goal: Patient/patient u.s. representative demonstrates understanding of disease process, treatment [...] of 0 - 24 or indicated by [facility] Assessment Goal: Patient should be free from fall Description: Interventions: 1. [place] to environment 2. Hourly rounds addressing the [...] non-skid footwear 11. Teach patient and patient u.s. representative to maintain environment for safety and engage in all aspects of fall prevention program Outcome: Progressing Note: Evaluation of progress towards goal: pt remains free from falls. Pt independent in room. Problem: Pain Goal: Patient goal is pain score less than 4, able to rest, and participant in treatment plan as appropriate Description: INTERVENTIONS: 1. Encourage patient or legal u.s. representative to report early pain and ask [...] per policy 9. Teach patient or legal u.s. representative interventions for comforting Outcome: Progressing Note: [...] at the bedside 7. Instruct patient/ patient u.s. representative about use of safety devices 8. Include patient/ patient u.s. representative in decisions related to safety Outcome: [...] hygiene technique 7. Identify and instruct patient/patient u.s. representative in use of appropriate isolation precautionsfor identified infection/symptoms 8. Provide and discuss with patient/patient u.s. representative on educational MDRO sheet 9. Encourage and monitor nutritional status daily and consult supervisor yard if indicated 10. Implement neutropenic guidelines as needed 11. Review exposure to history of communicable disease and recent travel history on admission 12. Encourage annual influenza vaccine 13. Encourage pneumonia vaccine Outcome: Progressing Note: Evaluation of progress towards goal: pt continues with intermittent fevers. Prn meds available. Problem: Knowledge Deficit Goal: Patient/patient u.s. representative demonstrates understanding of disease process, treatment [...] hydration as ordered 5. Instruct patient/ legal u.s. representative on nutrition/diet; fluid/hydration restrictions as appropriate Outcome: Progressing Note: Evaluation of progress towards goal: monitoring pt's labs and electrolytes. Replacing when needed. * Plan of Care - Claudia Masterson LPN - 12/05/2023 1:17 PM EDT Problem: Low Risk Fall Score Description: Pickens Fall Score of 0 - 24 or indicated by [facility] Assessment Goal: Patient should be free from fall Description: Interventions: 1. [place] to environment 2. Hourly rounds addressing the [...] non-skid footwear 11. Teach patient and patient u.s. representative to maintain environment for safety and engage in all aspects of fall prevention program Outcome: Progressing Note: Evaluation of progress towards goal: pt free from falls at this time. Problem: Pain Goal: Patient goal is pain score less than 4, able to rest, and participant in treatment plan as appropriate Description: INTERVENTIONS: 1. Encourage patient or legal u.s. representative to report early pain and ask [...] per policy 9. Teach patient or legal u.s. representative interventions for comforting Outcome: Progressing Note: [...] at the bedside 7. Instruct patient/ patient u.s. representative about use of safety devices 8. Include patient/ patient u.s. representative in decisions related to safety Outcome: [...] hygiene technique 7. Identify and instruct patient/patient u.s. representative in use of appropriate isolation precautionsfor identified infection/symptoms 8. Provide and discuss with patient/patient u.s. representative on educational MDRO sheet 9. Encourage and monitor nutritional status daily and consult supervisor yard if indicated 10. Implement neutropenic guidelines as needed 11. Review exposure to history of communicable disease and recent travel history on admission 12. Encourage annual influenza vaccine 13. Encourage pneumonia vaccine Outcome: Progressing Note: Evaluation of progress towards goal: pt continues to have intermittent fevers at this time. Problem: Knowledge Deficit Goal: Patient/patient u.s. representative demonstrates understanding of disease process, treatment [...] Collaborate with ancillary departments 14. Include patient/patient u.s. representative in decisions related to anxiety Outcome: [...] providing care 6. Collaborate with pastoral/spiritual care, 7th grade social studies teacher, mental health counselor as needed. 7. Instruct patient on diversional activities such as physical activity, distraction, and deep breathing exercises to assist with coping 8. Involve patient's u.s. representative in care Outcome: Progressing Note: Evaluation [...] hydration as ordered 5. Instruct patient/ legal u.s. representative on nutrition/diet; fluid/hydration restrictions as appropriate Outcome: Progressing Note: Evaluation of progress towards goal: electrolytes replaced per scale at this time. * Plan of Care - Skye Mary RN - 12/05/2023 2:02 AM EDT Problem: Low Risk Fall Score Description: Pickens Fall Score of 0 - 24 or indicated by [facility] Assessment Goal: Patient should be free from fall Description: Interventions: 1. [place] to environment 2. Hourly rounds addressing the [...] non-skid footwear 11. Teach patient and patient u.s. representative to maintain environment for safety and engage in all aspects of fall prevention program Outcome: Progressing Note: Evaluation of progress towards goal: pt remains free from falls. Pt independent in room. Problem: Pain Goal: Patient goal is pain score less than 4, able to rest, and participant in treatment plan as appropriate Description: INTERVENTIONS: 1. Encourage patient or legal u.s. representative to report early pain and ask [...] per policy 9. Teach patient or legal u.s. representative interventions for comforting Outcome: Progressing Note: [...] at the bedside 7. Instruct patient/ patient u.s. representative about use of safety devices 8. Include patient/ patient u.s. representative in decisions related to safety Outcome: [...] hygiene technique 7. Identify and instruct patient/patient u.s. representative in use of appropriate isolation precautionsfor identified infection/symptoms 8. Provide and discuss with patient/patient u.s. representative on educational MDRO sheet 9. Encourage and monitor nutritional status daily and consult supervisor yard if indicated 10. Implement neutropenic guidelines as needed 11. Review exposure to history of communicable disease and recent travel history on admission 12. Encourage annual influenza vaccine 13. Encourage pneumonia vaccine Outcome: Progressing Note: Evaluation of progress towards goal: monitoring pt for s/s of infection. Hand hygiene performed. Problem: Knowledge Deficit Goal: Patient/patient u.s. representative demonstrates understanding of disease process, treatment [...] Collaborate with ancillary departments 14. Include patient/patient u.s. representative in decisions related to anxiety Outcome: [...] providing care 6. Collaborate with pastoral/spiritual care, 7th grade social studies teacher, mental health counselor as needed. 7. Instruct patient on diversional activities such as physical activity, distraction, and deep breathing exercises to assist with coping 8. Involve patient's u.s. representative in care Outcome: Progressing Note: Evaluation [...] hydration as ordered 5. Instruct patient/ legal u.s. representative on nutrition/diet; fluid/hydration restrictions as appropriate [...] be free from fall Description: Interventions: 1. [place] to environment 2. Hourly rounds addressing the [...] non-skid footwear 11. Teach patient and patient u.s. representative to maintain environment for safety and engage in all aspects of fall prevention program Outcome: Progressing Note: Evaluation of progress towards goal: fall precautions in place no falls at this time. Problem: Pain Goal: Patient goal is pain score less than 4, able to rest, and participant in treatment plan as appropriate Description: INTERVENTIONS: 1. Encourage patient or legal u.s. representative to report early pain and ask [...] per policy 9. Teach patient or legal u.s. representative interventions for comforting Outcome: Progressing Note: [...] at the bedside 7. Instruct patient/ patient u.s. representative about use of safety devices 8. Include patient/ patient u.s. representative in decisions related to safety Outcome: [...] hygiene technique 7. Identify and instruct patient/patient u.s. representative in use of appropriate isolation precautionsfor identified infection/symptoms 8. Provide and discuss with patient/patient u.s. representative on educational MDRO sheet 9. Encourage and monitor nutritional status daily and consult supervisor yard if indicated 10. Implement neutropenic guidelines as needed 11. Review exposure to history of communicable disease and recent travel history on admission 12. Encourage annual influenza vaccine 13. Encourage pneumonia vaccine Outcome: Progressing Note: Evaluation of progress towards goal: pt remains afebrile at this time. Problem: Knowledge Deficit Goal: Patient/patient u.s. representative demonstrates understanding of disease process, treatment [...] Collaborate with ancillary departments 14. Include patient/patient u.s. representative in decisions related to anxiety Outcome: [...] providing care 6. Collaborate with pastoral/spiritual care, 7th grade social studies teacher, mental health counselor as needed. 7. Instruct patient on diversional activities such as physical activity, distraction, and deep breathing exercises to assist with coping 8. Involve patient's u.s. representative in care Outcome: Progressing Note: Evaluation [...] hydration as ordered 5. Instruct patient/ legal u.s. representative on nutrition/diet; fluid/hydration restrictions as appropriate [...] of 0 - 24 or indicated by [facility] Assessment Goal: Patient should be free from fall Description: Interventions: 1. [place] to environment 2. Hourly rounds addressing the [...] non-skid footwear 11. Teach patient and patient u.s. representative to maintain environment for safety and engage in all aspects of fall prevention program Outcome: Progressing Note: Evaluation of progress towards goal: pt remains free from falls. Pt independent in room. Problem: Pain Goal: Patient goal is pain score less than 4, able to rest, and participant in treatment plan as appropriate Description: INTERVENTIONS: 1. Encourage patient or legal u.s. representative to report early pain and ask [...] per policy 9. Teach patient or legal u.s. representative interventions for comforting Outcome: Progressing Note: [...] at the bedside 7. Instruct patient/ patient u.s. representative about use of safety devices 8. Include patient/ patient u.s. representative in decisions related to safety Outcome: [...] hygiene technique 7. Identify and instruct patient/patient u.s. representative in use of appropriate isolation precautionsfor identified infection/symptoms 8. Provide and discuss with patient/patient u.s. representative on educational MDRO sheet 9. Encourage and monitor nutritional status daily and consult supervisor yard if indicated 10. Implement neutropenic guidelines as needed 11. Review exposure to history of communicable disease and recent travel history on admission 12. Encourage annual influenza vaccine 13. Encourage pneumonia vaccine Outcome: Progressing Note: Evaluation of progress towards goal: pt remains afebrile. Hand hygiene performed. Problem: Knowledge Deficit Goal: Patient/patient u.s. representative demonstrates understanding of disease process, treatment [...] hydration as ordered 5. Instruct patient/ legal u.s. representative on nutrition/diet; fluid/hydration restrictions as appropriate Outcome: Progressing Note: Evaluation of progress towards goal: monitoring pt's labs and electrolytes. Replacing when needed. * Plan of Care - Claudia Masterson LPN - 12/03/2023 5:13 PM EDT Problem: Low Risk Fall Score Description: Pick[place] Fall Score of 0 - 24 or indicated by [facility] Assessment Goal: Patient should be free from fall Description: Interventions: 1. [place] to environment 2. Hourly rounds addressing the [...] non-skid footwear 11. Teach patient and patient u.s. representative to maintain environment for safety and engage in all aspects of fall prevention program Outcome: Progressing Note: Evaluation of progress towards goal: fall precautions in place, pt remains free from falls atthis time. Problem: Pain Goal: Patient goal is pain score less than 4, able to rest, and participant in treatment plan as appropriate Description: INTERVENTIONS: 1. Encourage patient or legal u.s. representative to report early pain and ask [...] per policy 9. Teach patient or legal u.s. representative interventions for comforting Outcome: Progressing Note: [...] at the bedside 7. Instruct patient/ patient u.s. representative about use of safety devices 8. Include patient/ patient u.s. representative in decisions related to safety Outcome: [...] hygiene technique 7. Identify and instruct patient/patient u.s. representative in use of appropriate isolation precautionsfor identified infection/symptoms 8. Provide and discuss with patient/patient u.s. representative on educational MDRO sheet 9. Encourage and monitor nutritional status daily and consult supervisor yard if indicated 10. Implement neutropenic guidelines as needed 11. Review exposure to history of communicable disease and recent travel history on admission 12. Encourage annual influenza vaccine 13. Encourage pneumonia vaccine Outcome: Progressing Note: Evaluation of progress towards goal: pt remains afebrile at this time. Problem: Knowledge Deficit Goal: Patient/patient u.s. representative demonstrates understanding of disease process, treatment [...] Collaborate with ancillary departments 14. Include patient/patient u.s. representative in decisions related to anxiety Outcome: [...] providing care 6. Collaborate with pastoral/spiritual care, 7th grade social studies teacher, mental health counselor as needed. 7. Instruct patient on diversional activities such as physical activity, distraction, and deep breathing exercises to assist with coping 8. Involve patient's u.s. representative in care Outcome: Progressing Note: Evaluation [...] hydration as ordered 5. Instruct patient/ legal u.s. representative on nutrition/diet; fluid/hydration restrictions as appropriate Outcome: Progressing Note: Evaluation of progress towards goal: electrolytes continue to need replacement at this time. * Discharge Planning Note - Heike Anderson - 12/03/2023 9:59 AM EDT DISCHARGE PLANNING NOTE Referral to [id number]- [place], [place] [facility] - (P# ; F# ) * Discharge Planning Note - Mariah Starr RN - 12/03/2023 9:16 AM EDT DISCHARGE PLANNING NOTE [employer] met with patient and at bedside, introduced [...] IV antibiotics - V[facility]Ertapenum [facility] drawing labs three days a week and weekly port dressing changes. Patient denies need for transportation/ food/ prescription medication assistance resources. 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 CN offered to assist with follow up appointment arrangements, patient declined need. Current discharge plan is: home with IV antibiotics Task sent to [facility] to send referral to [facility]. Will continue to follow as plan of care develops. CN discussed benefits and importance of medication compliance and follow ups. - MARIAH STARR RN 12/03/23 9:16 AM * Plan of Care - Shanice Hogan RN - 12/03/2023 1:08 AM EDT Problem: Low Risk Fall Score Description: Pick[place] Fall Score of 0 - 24 or indicated by [facility] Assessment Goal: Patient should be free from fall Description: Interventions: 1. [place] to environment 2. Hourly rounds addressing the [...] non-skid footwear 11. Teach patient and patient u.s. representative to maintain environment for safety and [...] Description: INTERVENTIONS: 1. Encourage patient or legal u.s. representative to report early pain and ask [...] per policy 9. Teach patient or legal u.s. representative interventions for comforting Outcome: Progressing Note: [...] at the bedside 7. Instruct patient/ patient u.s. representative about use of safety devices 8. Include patient/ patient u.s. representative in decisions related to safety Outcome: [...] hygiene technique 7. Identify and instruct patient/patient u.s. representative in use of appropriate isolation precautionsfor identified infection/symptoms 8. Provide and discuss with patient/patient u.s. representative on educational MDRO sheet 9. Encourage and monitor nutritional status daily and consult supervisor yard if indicated 10. Implement neutropenic guidelines as needed 11. Review exposure to history of communicable disease and recent travel history on admission 12. Encourage annual influenza vaccine 13. Encourage pneumonia vaccine Outcome: Progressing Note: Evaluation of progress towards goal: Afebrile, labs and VS monitored Problem: Knowledge Deficit Goal: Patient/patient u.s. representative demonstrates understanding of disease process, treatment [...] Collaborate with ancillary departments 14. Include patient/patient u.s. representative in decisions related to anxiety Outcome: [...] providing care 6. Collaborate with pastoral/spiritual care, 7th grade social studies teacher, mental health counselor as needed. 7. Instruct patient on diversional activities such as physical activity, distraction, and deep breathing exercises to assist with coping 8. Involve patient's u.s. representative in care Outcome: Progressing Note: Evaluation [...] hydration as ordered 5. Instruct patient/ legal u.s. representative on nutrition/diet; fluid/hydration restrictions as appropriate Outcome: Progressing Note: Evaluation of progress towards goal: Display of normal lab values. Electrolytes are replaced as needed. [facility] in [facility] Hospital course Narrative* Amy Singh MD - 12/09/2023 2:48 PM EDT Images from the original note were not included. [facility] INTERNAL MEDICINE [facility] - ONCOLOGY/STROKE [address] [place] [address] Hospital Medicine Discharge Summary Patient: Ike Flannery Date of : 1970 Room: [facility] Encounter date: 12/09/23 DATE OF ADMISSION: 12/02/2023 DATE OF DISCHARGE:12/09/2023 DISCHARGE DIAGNOSES # Acute kidney injury, ATN, multifactorial in the setting of decreased p.o. 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 follow up with primary hiv cts specialist Dr. Clint Villanueva. follow-up with nephrology in [...] 14 tentatively. She will follow up with [facility] Dr. Lui on 01/13/ Patient's [...] (0.083 %) nebulizer solution Commonly known as: PROVENTILVENTCLOVER Inhale 3 mL (2.5 mg total) by [...] Medications These [facility] [address] [facility] [address] ciprofloxacin HCl 500 mg tablet clarithromycin 500 mg tablet cyanocobalamin 1000 MCG tablet linezolid 600 mg tablet You can get these medications from any pharmacy Bring a paper prescription for each of these medications imipenem-cilastatin 500 mg in sodium chloride 0.9 % 100 mL IVPB MINI-BAG Plus >30 minutes were spent on discharging this patient. Amy Singh MD 12/09/2023 2:48 PM [facility] 7AM-7PM (all facilities): EpicMaryt or page through Rafiera. 7PM-7AM ([facility], [facility] Re[facility]): EpicChat or page, [phone]. 7PM-7AM ([place], [place], [place], [place] and [facility] Rehab): EpicChat or page through Pheedo. documented in this encounterSheltering [facility]10-09-[facility]24 Hospital Discharge instructions* Discharge Instructions* Amy Singh MD - 12/09/2023 2:42 PM EDT take ciprofloxacin for 2 week course of treatment until December 15 and then Zyvox from December 16 to December 29, clarithromycin until January 14 tentatively, and imipenem until January 14tentatively Ambulatory referral placed for [facility] Dr. Lui for fci management -has appointment January 13 Check labs WBC, platelets, creatinine, LFTs weekly while on antibiotics. follow up with primary hiv cts specialist Dr. Clint Villanueva. follow-up with nephrology in [...] to reschedule. Thank you! HERMAN LUI DO [phone] [facility] [address] [facility] [address] [facility] [facility] Infectious Disease [facility] [id number] Go on 01/14/2024 at 2 PM Pt. [...] For NEW patients, MD will not prescribe computer terminal operator pain medication. * Attachments The following attachments cannot be sent through Care Everywhere. * Acute kidney injury (Grenadian) * How to Prevent Surgical Site Infections (Grenadian) documented in this encounterSheltering [facility]10-09-2024 Plan of care note * Plan of Care - Aliaz Benito RN - 12/09/2023 4:18 AM EDT Problem: Low Risk Fall Score Description: Pickens Fall Score of 0 - 24 or indicated by [facility] Re[facility] Assessment Goal: Patient should be free from fall Description: Interventions: 1. [place] to environment 2. Hourly rounds addressing the [...] non-skid footwear 11. Teach patient and patient u.s. representative to maintain environment for safety and engage in all aspects of fall prevention program Outcome: Progressing Note: Evaluation of progress towards goal: Pt remains free from falls. Will continue to provide a safe environment. Problem: Pain Goal: Patient goal is pain score less than 4, able to rest, and participant in treatment plan as appropriate Description: INTERVENTIONS: 1. Encourage patient or legal u.s. representative to report early pain and ask [...] per policy 9. Teach patient or legal u.s. representative interventions for comforting Outcome: Progressing Note: [...] at the bedside 7. Instruct patient/ patient u.s. representative about use of safety devices 8. Include patient/ patient u.s. representative in decisions related to safety Outcome: [...] hygiene technique 7. Identify and instruct patient/patient u.s. representative in use of appropriate isolation precautionsfor identified infection/symptoms 8. Provide and discuss with patient/patient u.s. representative on educational MDRO sheet 9. Encourage and monitor nutritional status daily and consult supervisor yard if indicated 10. Implement neutropenic guidelines as needed 11. Review exposure to history of communicable disease and recent travel history on admission 12. Encourage annual influenza vaccine 13. Encourage pneumonia vaccine Outcome: Progressing Note: Evaluation of progress towards goal: pt remains afebrile, currently on antibiotics Problem: Knowledge Deficit Goal: Patient/patient u.s. representative demonstrates understanding of disease process, treatment [...] Collaborate with ancillary departments 14. Include patient/patient u.s. representative in decisions related to anxiety Outcome: [...] providing care 6. Collaborate with pastoral/spiritual care, 7th grade social studies teacher, mental health counselor as needed. 7. Instruct patient on diversional activities such as physical activity, distraction, and deep breathing exercises to assist with coping 8. Involve patient's u.s. representative in care Outcome: Progressing Note: Evaluation [...] hydration as ordered 5. Instruct patient/ legal u.s. representative on nutrition/diet; fluid/hydration restrictions as appropriate Outcome: Progressing Note: Evaluation of progress towards goal: electrolytes are continuing to be monitored and replacedper protocol [facility]10[facility] Plan of care note* Plan of Care - Claudia Masterson, SHARAD - 12/08/2023 3:27 PM EDT Problem: Low Risk Fall Score Description: Pickens Fall Score of 0 - 24 or indicated by [facility] Assessment Goal: Patient should be free from fall Description: Interventions: 1. [place] to environment 2. Hourly rounds addressing the [...] non-skid footwear 11. Teach patient and patient u.s. representative to maintain environment for safety and engage in all aspects of fall prevention program Outcome: Progressing Note: Evaluation of progress towards goal: pt remains free from falls at this time. Problem: Pain Goal: Patient goal is pain score less than 4, able to rest, and participant in treatment plan as appropriate Description: INTERVENTIONS: 1. Encourage patient or legal u.s. representative to report early pain and ask [...] per policy 9. Teach patient or legal u.s. representative interventions for comforting Outcome: Progressing Note: [...] at the bedside 7. Instruct patient/ patient u.s. representative about use of safety devices 8. Include patient/ patient u.s. representative in decisions related to safety Outcome: [...] hygiene technique 7. Identify and instruct patient/patient u.s. representative in use of appropriate isolation precautionsfor identified infection/symptoms 8. Provide and discuss with patient/patient u.s. representative on educational MDRO sheet 9. Encourage and monitor nutritional status daily and consult supervisor yard if indicated 10. Implement neutropenic guidelines as needed 11. Review exposure to history of communicable disease and recent travel history on admission 12. Encourage annual influenza vaccine 13. Encourage pneumonia vaccine Outcome: Progressing Note: Evaluation of progress towards goal: pt remains afebrile at this time. Problem: Knowledge Deficit Goal: Patient/patient u.s. representative demonstrates understanding of disease process, treatment [...] Collaborate with ancillary departments 14. Include patient/patient u.s. representative in decisions related to anxiety Outcome: [...] providing care 6. Collaborate with pastoral/spiritual care, 7th grade social studies teacher, mental health counselor as needed. 7. Instruct patient on diversional activities such as physical activity, distraction, and deep breathing exercises to assist with coping 8. Involve patient's u.s. representative in care Outcome: Progressing Note: Evaluation [...] hydration as ordered 5. Instruct patient/ legal u.s. representative on nutrition/diet; fluid/hydration restrictions as appropriate Outcome: Progressing Note: Evaluation of progress towards goal: electrolytes replaced within normal limits at this time. [facility]10-08-2024 Progress note* Discharge Planning Note - Mariah Starr RN - 12/08/2023 3:23 PM EDT DISCHARGE PLANNING NOTE Patient discussed in DTRs. Barrier to discharge is ID plan. 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 Task sent to [facility] to get appointment set up. Plan is for patient to be discharged on Primaxin IV - sent [facility] lori. - MARIAH STARR RN 12/08/23 3:26 PM Primaxin IV is 100% covered. Script and prior auth sent to [employer] [facility]. Medication will be delivered to the patient's home between 5-9pm. Spoke with Skye at [facility] and they have the standing order for weekly labs and weekly dressing change. Patient updated and agreeable with plan to discharge home this afternoon. Patient has appointment set for 01/14/[address] Herman Lui. - MARIAH STARR RN 12/09/23 2:19 PM CRF sent to [facility]. 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 [place] to environment 2. Hourly rounds addressing the [...] non-skid footwear 11. Teach patient and patient u.s. representative to maintain environment for safety and engage in all aspects of fall prevention program Outcome: Progressing Note: Evaluation of progress towards goal: Pt remains free from falls. Will continue to provide a safe environment. Problem: Pain Goal: Patient goal is pain score less than 4, able to rest, and participant in treatment plan as appropriate Description: INTERVENTIONS: 1. Encourage patient or legal u.s. representative to report early pain and ask [...] per policy 9. Teach patient or legal u.s. representative interventions for comforting Outcome: Progressing Note: [...] at the bedside 7. Instruct patient/ patient u.s. representative about use of safety devices 8. Include patient/ patient u.s. representative in decisions related to safety Outcome: [...] hygiene technique 7. Identify and instruct patient/patient u.s. representative in use of appropriate isolation precautionsfor identified infection/symptoms 8. Provide and discuss with patient/patient u.s. representative on educational MDRO sheet 9. Encourage and monitor nutritional status daily and consult supervisor yard if indicated 10. Implement neutropenic guidelines as needed 11. Review exposure to history of communicable disease and recent travel history on admission 12. Encourage annual influenza vaccine 13. Encourage pneumonia vaccine Outcome: Progressing Note: Evaluation of progress towards goal: pt remains afebrile at this time, antibiotics are administered as ordered Problem: Knowledge Deficit Goal: Patient/patient u.s. representative demonstrates understanding of disease process, treatment [...] Collaborate with ancillary departments 14. Include patient/patient u.s. representative in decisions related to anxiety Outcome: [...] providing care 6. Collaborate with pastoral/spiritual care, 7th grade social studies teacher, mental health counselor as needed. 7. Instruct patient on diversional activities such as physical activity, distraction, and deep breathing exercises to assist with coping 8. Involve patient's u.s. representative in care Outcome: Progressing Note: Evaluation [...] hydration as ordered 5. Instruct patient/ legal u.s. representative on nutrition/diet; fluid/hydration restrictions as appropriate Outcome: Progressing Note: Evaluation of progress towards goal: electrolytes are monitored and replaced per orders [facility]10[facility] Progress note* Discharge Planning Note - [...] - MARIAH STARR RN 12/07/23 12:06 PM [facility] Plan of care note* Plan of Care - Corrina Richardson RN - 12/07/2023 10:30 AM EDT Problem: Pain Goal: Patient goal is pain score less than 4, able to rest, and participant in treatment plan as appropriate Description: INTERVENTIONS: 1. Encourage patient or legal u.s. representative to report early pain and ask [...] per policy 9. Teach patient or legal u.s. representative interventions for comforting Outcome: Progressing Note: [...] at the bedside 7. Instruct patient/ patient u.s. representative about use of safety devices 8. Include patient/ patient u.s. representative in decisions related to safety Outcome: [...] hygiene technique 7. Identify and instruct patient/patient u.s. representative in use of appropriate isolation precautionsfor identified infection/symptoms 8. Provide and discuss with patient/patient u.s. representative on educational MDRO sheet 9. Encourage and monitor nutritional status daily and consult supervisor yard if indicated 10. Implement neutropenic guidelines as needed 11. Review exposure to history of communicable disease and recent travel history on admission 12. Encourage annual influenza vaccine 13. Encourage pneumonia vaccine Outcome: Progressing Note: Evaluation of progress towards goal: pt afebrile. WBC 2.7 Problem: Knowledge Deficit Goal: Patient/patient u.s. representative demonstrates understanding of disease process, treatment [...] of progress towards goal: d/c plans pending [facility] [id number] Plan of care note* Plan of Care - Aliza Benito RN - 12/07/2023 5:19 AM EDT Problem: Low Risk Fall Score Description: Pickens Fall Score of 0 - 24 or indicated by [facility] Assessment Goal: Patient should be free from fall Description: Interventions: 1. [place] to environment 2. Hourly rounds addressing the [...] non-skid footwear 11. Teach patient and patient u.s. representative to maintain environment for safety and engage in all aspects of fall prevention program Outcome: Progressing Note: Evaluation of progress towards goal: Pt remains free from falls. Will continue to provide a safe environment. Problem: Pain Goal: Patient goal is pain score less than 4, able to rest, and participant in treatment plan as appropriate Description: INTERVENTIONS: 1. Encourage patient or legal u.s. representative to report early pain and ask [...] per policy 9. Teach patient or legal u.s. representative interventions for comforting Outcome: Progressing Note: [...] at the bedside 7. Instruct patient/ patient u.s. representative about use of safety devices 8. Include patient/ patient u.s. representative in decisions related to safety Outcome: [...] hygiene technique 7. Identify and instruct patient/patient u.s. representative in use of appropriate isolation precautionsfor identified infection/symptoms 8. Provide and discuss with patient/patient u.s. representative on educational MDRO sheet 9. Encourage and monitor nutritional status daily and consult supervisor yard if indicated 10. Implement neutropenic guidelines as needed 11. Review exposure to history of communicable disease and recent travel history on admission 12. Encourage annual influenza vaccine 13. Encourage pneumonia vaccine Outcome: Progressing Note: Evaluation of progress towards goal: patient remains on antibiotics at this time, monitoring for s/s of infection Problem: Knowledge Deficit Goal: Patient/patient u.s. representative demonstrates understanding of disease process, treatment [...] Collaborate with ancillary departments 14. Include patient/patient u.s. representative in decisions related to anxiety Outcome: [...] providing care 6. Collaborate with pastoral/spiritual care, 7th grade social studies teacher, mental health counselor as needed. 7. Instruct patient on diversional activities such as physical activity, distraction, and deep breathing exercises to assist with coping 8. Involve patient's u.s. representative in care Outcome: Progressing Note: Evaluation [...] hydration as ordered 5. Instruct patient/ legal u.s. representative on nutrition/diet; fluid/hydration restrictions as appropriate Outcome: Progressing Note: Evaluation of progress towards goal: electrolytes are within range at this time [facility]10[facility] Plan of care note* Plan of Care - Corrina Richardson RN - 12/06/2023 9:51 AM EDT Problem: Pain Goal: Patient goal is pain score less than 4, able to rest, and participant in treatment plan as appropriate Description: INTERVENTIONS: 1. Encourage patient or legal u.s. representative to report early pain and ask [...] per policy 9. Teach patient or legal u.s. representative interventions for comforting Outcome: Progressing Note: [...] at the bedside 7. Instruct patient/ patient u.s. representative about use of safety devices 8. Include patient/ patient u.s. representative in decisions related to safety Outcome: [...] hygiene technique 7. Identify and instruct patient/patient u.s. representative in use of appropriate isolation precautionsfor identified infection/symptoms 8. Provide and discuss with patient/patient u.s. representative on educational MDRO sheet 9. Encourage and monitor nutritional status daily and consult supervisor yard if indicated 10. Implement neutropenic guidelines as needed 11. Review exposure to history of communicable disease and recent travel history on admission 12. Encourage annual influenza vaccine 13. Encourage pneumonia vaccine Outcome: Progressing Note: Evaluation of progress towards goal: pt afebrile this AM. WBC 3.0 Positive Wound culture [facility] Problem: Knowledge Deficit Goal: Patient/patient u.s. representative demonstrates understanding of disease process, treatment [...] progress towards goal: awaiting referral for [facility] [id number] Plan of care note* Plan of Care - Skye Mary RN - 12/06/2023 1:56 AM EDT Problem: Low Risk Fall Score Description: Pickens Fall Score of 0 - 24 or indicated by [facility] Assessment Goal: Patient should be free from fall Description: Interventions: 1. [place] to environment 2. Hourly rounds addressing the [...] non-skid footwear 11. Teach patient and patient u.s. representative to maintain environment for safety and engage in all aspects of fall prevention program Outcome: Progressing Note: Evaluation of progress towards goal: pt remains free from falls. Pt independent in room. Problem: Pain Goal: Patient goal is pain score less than 4, able to rest, and participant in treatment plan as appropriate Description: INTERVENTIONS: 1. Encourage patient or legal u.s. representative to report early pain and ask [...] per policy 9. Teach patient or legal u.s. representative interventions for comforting Outcome: Progressing Note: [...] at the bedside 7. Instruct patient/ patient u.s. representative about use of safety devices 8. Include patient/ patient u.s. representative in decisions related to safety Outcome: [...] hygiene technique 7. Identify and instruct patient/patient u.s. representative in use of appropriate isolation precautionsfor identified infection/symptoms 8. Provide and discuss with patient/patient u.s. representative on educational MDRO sheet 9. Encourage and monitor nutritional status daily and consult supervisor yard if indicated 10. Implement neutropenic guidelines as needed 11. Review exposure to history of communicable disease and recent travel history on admission 12. Encourage annual influenza vaccine 13. Encourage pneumonia vaccine Outcome: Progressing Note: Evaluation of progress towards goal: pt continues with intermittent fevers. Prn meds available. Problem: Knowledge Deficit Goal: Patient/patient u.s. representative demonstrates understanding of disease process, treatment [...] hydration as ordered 5. Instruct patient/ legal u.s. representative on nutrition/diet; fluid/hydration restrictions as appropriate Outcome: Progressing Note: Evaluation of progress towards goal: monitoring pt's labs and electrolytes. Replacing when needed. [facility]10-05-[facility] Plan of care note* Plan of Care - Claudia Masterson LPN - 12/05/2023 1:17 PM EDT Problem: Low Risk Fall Score Description: Pickens Fall Score of 0 - 24 or indicated by [facility] Assessment Goal: Patient should be free from fall Description: Interventions: 1. [place] to environment 2. Hourly rounds addressing the [...] non-skid footwear 11. Teach patient and patient u.s. representative to maintain environment for safety and engage in all aspects of fall prevention program Outcome: Progressing Note: Evaluation of progress towards goal: pt free from falls at this time. Problem: Pain Goal: Patient goal is pain score less than 4, able to rest, and participant in treatment plan as appropriate Description: INTERVENTIONS: 1. Encourage patient or legal u.s. representative to report early pain and ask [...] per policy 9. Teach patient or legal u.s. representative interventions for comforting Outcome: Progressing Note: [...] at the bedside 7. Instruct patient/ patient u.s. representative about use of safety devices 8. Include patient/ patient u.s. representative in decisions related to safety Outcome: [...] hygiene technique 7. Identify and instruct patient/patient u.s. representative in use of appropriate isolation precautionsfor identified infection/symptoms 8. Provide and discuss with patient/patient u.s. representative on educational MDRO sheet 9. Encourage and monitor nutritional status daily and consult supervisor yard if indicated 10. Implement neutropenic guidelines as needed 11. Review exposure to history of communicable disease and recent travel history on admission 12. Encourage annual influenza vaccine 13. Encourage pneumonia vaccine Outcome: Progressing Note: Evaluation of progress towards goal: pt continues to have intermittent fevers at this time. Problem: Knowledge Deficit Goal: Patient/patient u.s. representative demonstrates understanding of disease process, treatment [...] Collaborate with ancillary departments 14. Include patient/patient u.s. representative in decisions related to anxiety Outcome: [...] providing care 6. Collaborate with pastoral/spiritual care, 7th grade social studies teacher, mental health counselor as needed. 7. Instruct patient on diversional activities such as physical activity, distraction, and deep breathing exercises to assist with coping 8. Involve patient's u.s. representative in care Outcome: Progressing Note: Evaluation [...] hydration as ordered 5. Instruct patient/ legal u.s. representative on nutrition/diet; fluid/hydration restrictions as appropriate Outcome: Progressing Note: Evaluation of progress towards goal: electrolytes replaced per scale at this time. [facility]10-05-2024 Plan of care note* Plan of Care - Skye Mary RN - 12/05/2023 2:02 AM EDT Problem: Low Risk Fall Score Description: Pickens Fall Score of 0 - 24 or indicated by [facility] Assessment Goal: Patient should be free from fall Description: Interventions: 1. [place] to environment 2. Hourly rounds addressing the [...] non-skid footwear 11. Teach patient and patient u.s. representative to maintain environment for safety and engage in all aspects of fall prevention program Outcome: Progressing Note: Evaluation of progress towards goal: pt remains free from falls. Pt independent in room. Problem: Pain Goal: Patient goal is pain score less than 4, able to rest, and participant in treatment plan as appropriate Description: INTERVENTIONS: 1. Encourage patient or legal u.s. representative to report early pain and ask [...] per policy 9. Teach patient or legal u.s. representative interventions for comforting Outcome: Progressing Note: [...] at the bedside 7. Instruct patient/ patient u.s. representative about use of safety devices 8. Include patient/ patient u.s. representative in decisions related to safety Outcome: [...] hygiene technique 7. Identify and instruct patient/patient u.s. representative in use of appropriate isolation precautionsfor identified infection/symptoms 8. Provide and discuss with patient/patient u.s. representative on educational MDRO sheet 9. Encourage and monitor nutritional status daily and consult supervisor yard if indicated 10. Implement neutropenic guidelines as needed 11. Review exposure to history of communicable disease and recent travel history on admission 12. Encourage annual influenza vaccine 13. Encourage pneumonia vaccine Outcome: Progressing Note: Evaluation of progress towards goal: monitoring pt for s/s of infection. Hand hygiene performed. Problem: Knowledge Deficit Goal: Patient/patient u.s. representative demonstrates understanding of disease process, treatment [...] Collaborate with ancillary departments 14. Include patient/patient u.s. representative in decisions related to anxiety Outcome: [...] providing care 6. Collaborate with pastoral/spiritual care, 7th grade social studies teacher, mental health counselor as needed. 7. Instruct patient on diversional activities such as physical activity, distraction, and deep breathing exercises to assist with coping 8. Involve patient's u.s. representative in care Outcome: Progressing Note: Evaluation [...] hydration as ordered 5. Instruct patient/ legal u.s. representative on nutrition/diet; fluid/hydration restrictions as appropriate Outcome: Progressing Note: Evaluation of progress towards goal: monitoring pt's labs and electrolytes. Replacing when needed. [facility]10-04-2024 Plan of care note* Plan of Care - Claudia Masterson LPN - 12/04/2023 3:30 PM EDT Problem: Low Risk Fall Score Description: Pickens Fall Score of 0 - 24 or indicated by [facility] Assessment Goal: Patient should be free from fall Description: Interventions: 1. [place] to environment 2. Hourly rounds addressing the [...] non-skid footwear 11. Teach patient and patient u.s. representative to maintain environment for safety and engage in all aspects of fall prevention program Outcome: Progressing Note: Evaluation of progress towards goal: fall precautions in place no falls at this time. Problem: Pain Goal: Patient goal is pain score less than 4, able to rest, and participant in treatment plan as appropriate Description: INTERVENTIONS: 1. Encourage patient or legal u.s. representative to report early pain and ask [...] per policy 9. Teach patient or legal u.s. representative interventions for comforting Outcome: Progressing Note: [...] at the bedside 7. Instruct patient/ patient u.s. representative about use of safety devices 8. Include patient/ patient u.s. representative in decisions related to safety Outcome: [...] hygiene technique 7. Identify and instruct patient/patient u.s. representative in use of appropriate isolation precautionsfor identified infection/symptoms 8. Provide and discuss with patient/patient u.s. representative on educational MDRO sheet 9. Encourage and monitor nutritional status daily and consult supervisor yard if indicated 10. Implement neutropenic guidelines as needed 11. Review exposure to history of communicable disease and recent travel history on admission 12. Encourage annual influenza vaccine 13. Encourage pneumonia vaccine Outcome: Progressing Note: Evaluation of progress towards goal: pt remains afebrile at this time. Problem: Knowledge Deficit Goal: Patient/patient u.s. representative demonstrates understanding of disease process, treatment [...] Collaborate with ancillary departments 14. Include patient/patient u.s. representative in decisions related to anxiety Outcome: [...] providing care 6. Collaborate with pastoral/spiritual care, 7th grade social studies teacher, mental health counselor as needed. 7. Instruct patient on diversional activities such as physical activity, distraction, and deep breathing exercises to assist with coping 8. Involve patient's u.s. representative in care Outcome: Progressing Note: Evaluation [...] hydration as ordered 5. Instruct patient/ legal u.s. representative on nutrition/diet; fluid/hydration restrictions as appropriate Outcome: Progressing Note: Evaluation of progress towards goal: electrolytes within normal limits at this time. [facility]10-04-2024 Progress note* Discharge Planning Note - Mariah [...] - MARIAH STARR RN 12/04/23 1:08 PM [facility]10-04-2024 Plan of care note* Plan of Care - Skye Mary RN - 12/04/2023 12:43 AM EDT Problem: Low Risk Fall Score Description: Pickens Fall Score of 0 - 24 or indicated by [facility] Assessment Goal: Patient should be free from fall Description: Interventions: 1. [place] to environment 2. Hourly rounds addressing the [...] non-skid footwear 11. Teach patient and patient u.s. representative to maintain environment for safety and engage in all aspects of fall prevention program Outcome: Progressing Note: Evaluation of progress towards goal: pt remains free from falls. Pt independent in room. Problem: Pain Goal: Patient goal is pain score less than 4, able to rest, and participant in treatment plan as appropriate Description: INTERVENTIONS: 1. Encourage patient or legal u.s. representative to report early pain and ask [...] per policy 9. Teach patient or legal u.s. representative interventions for comforting Outcome: Progressing Note: [...] at the bedside 7. Instruct patient/ patient u.s. representative about use of safety devices 8. Include patient/ patient u.s. representative in decisions related to safety Outcome: [...] hygiene technique 7. Identify and instruct patient/patient u.s. representative in use of appropriate isolation precautionsfor identified infection/symptoms 8. Provide and discuss with patient/patient u.s. representative on educational MDRO sheet 9. Encourage and monitor nutritional status daily and consult supervisor yard if indicated 10. Implement neutropenic guidelines as needed 11. Review exposure to history of communicable disease and recent travel history on admission 12. Encourage annual influenza vaccine 13. Encourage pneumonia vaccine Outcome: Progressing Note: Evaluation of progress towards goal: pt remains afebrile. Hand hygiene performed. Problem: Knowledge Deficit Goal: Patient/patient u.s. representative demonstrates understanding of disease process, treatment [...] hydration as ordered 5. Instruct patient/ legal u.s. representative on nutrition/diet; fluid/hydration restrictions as appropriate Outcome: Progressing Note: Evaluation of progress towards goal: monitoring pt's labs and electrolytes. Replacing when needed. [facility]10-03-2024 Plan of care note* Plan of Care - Claudia MastersonSHARAD - 12/03/2023 5:13 PM EDT Problem: Low Risk Fall Score Description: Pickens Fall Score of 0 - 24 or indicated by [facility] Assessment Goal: Patient should be free from fall Description: Interventions: 1. [place] to environment 2. Hourly rounds addressing the [...] non-skid footwear 11. Teach patient and patient u.s. representative to maintain environment for safety and engage in all aspects of fall prevention program Outcome: Progressing Note: Evaluation of progress towards goal: fall precautions in place, pt remains free from falls atthis time. Problem: Pain Goal: Patient goal is pain score less than 4, able to rest, and participant in treatment plan as appropriate Description: INTERVENTIONS: 1. Encourage patient or legal u.s. representative to report early pain and ask [...] per policy 9. Teach patient or legal u.s. representative interventions for comforting Outcome: Progressing Note: [...] at the bedside 7. Instruct patient/ patient u.s. representative about use of safety devices 8. Include patient/ patient u.s. representative in decisions related to safety Outcome: [...] hygiene technique 7. Identify and instruct patient/patient u.s. representative in use of appropriate isolation precautionsfor identified infection/symptoms 8. Provide and discuss with patient/patient u.s. representative on educational MDRO sheet 9. Encourage and monitor nutritional status daily and consult supervisor yard if indicated 10. Implement neutropenic guidelines as needed 11. Review exposure to history of communicable disease and recent travel history on admission 12. Encourage annual influenza vaccine 13. Encourage pneumonia vaccine Outcome: Progressing Note: Evaluation of progress towards goal: pt remains afebrile at this time. Problem: Knowledge Deficit Goal: Patient/patient u.s. representative demonstrates understanding of disease process, treatment [...] Collaborate with ancillary departments 14. Include patient/patient u.s. representative in decisions related to anxiety Outcome: [...] providing care 6. Collaborate with pastoral/spiritual care, 7th grade social studies teacher, mental health counselor as needed. 7. Instruct patient on diversional activities such as physical activity, distraction, and deep breathing exercises to assist with coping 8. Involve patient's u.s. representative in care Outcome: Progressing Note: Evaluation [...] hydration as ordered 5. Instruct patient/ legal u.s. representative on nutrition/diet; fluid/hydration restrictions as appropriate Outcome: Progressing Note: Evaluation of progress towards goal: electrolytes continue to need replacement at this time. [employer] [id number] History of Present illness Narrative* Gino Flower APRN-DIAL SCREW ASSEMBLER - 12/03/2023 4:23 PM EDT Patient's insurance not accepted over [facility]. Referral sent to [facility] who reportedly cannotsee her until . Spoke with patient who requested a referral be sent to [facility]. AMEENA Vallejo 12/03/23 1629 documented in this encounterMercy Health Fairfield HospitalCole Martin [id number] Consult note* Shanon Joe MD - 12/03/2023 4:08 PM EDTAssociated Order(s): IP CONSULT TO CARDIOLOGY Reason for consult: Abnormal ECG History of present illness: The patient is a 53-year-old woman. She was admitted to [facility] December 03, 2023. She reports having fevers and feeling unwell. She has been undergoing treatmentfor breast cellulitis. She denies any chest discomfort or dyspnea. She has no palpitations. She normally follows with Dr. Clint Villanueva of [facility] Allergies: Meperidine, daptomycin, adhesive Medications: [...] cell count 5.8, hemoglobin 8.0, platelet count [id number]. Sodium 137, potassium 3.1,chloride 104, bicarb 25, [...] patient will follow up with her primary hiv cts specialist Dr. Clint Villanueva. [employer] Work Phone: 1(310) 905-319810-03-2024 Consult note* Shanon Joe MD - 12/03/2023 4:08 PM EDTAssociated Order(s): IP CONSULT TO CARDIOLOGY Reason for consult: Abnormal ECG History of present illness: The patient is a 53-year-old woman. [facility] She reports having fevers and feeling unwell. She has been undergoing treatmentfor breast cellulitis. She denies any chest discomfort or dyspnea. She has no palpitations. She normally follows with Dr. Clint Villanueva of [facility] Allergies: Meperidine, daptomycin, adhesive Medications: [...] cell count 5.8, hemoglobin 8.0, platelet count [id number]. Sodium 137, potassium 3.1,chloride 104, bicarb 25, [...] patient will follow up with her primary hiv cts specialist Dr. Clint Villanueva. * Carlene Noguera MD - 12/03/2023 2:03 PM EDTAssociated Order(s): IP CONSULT TO INFECTIOUS DISEASES Images from the original note were not included. [facility] - Initial Consult Note Ike Flannery Admit date/time 12/02/2023 9:55 PM Today's Date and Time: 12/03/2023, 2:03 PM Impression: Left breast cellulitis Postop infection of left breast tissue equine science instructor-culture growing acid-fast bacilli Acute kidney injury History [...] care Ambulatory referrals to Infectious Disease at [facility], [facility], [facility] have been placed for F/U acid-fast bacilli. Patient was notified by [facility] that she can not use her insurance over [facility] line. We will send referral per patient request to [facility]. Reason for consultation: Infection on IV antibiotics, established patient Chief complaint Postop problem History of Present Illness: Ike Flannery is a 53 y.o.-year-old female who was initially admitted on 12/02/2023. Patient presents to hospital with complaints fever, chills, and vomiting. Patient was recently admitted and discharged from [facility] after removal of infected tissue equine science instructor. She was discharged home on Vancomycin and Ertapenem to continue tentatively until December 08. Patient [facility] at [facility] lab draw. Last night, we were notified that creatinine was 2.56 and vanco trough 33. Patient also complaining nausea, fever, and chills and was advised to go to ER. Left breast cultures from previous admission are preliminarily growing acid-fast bacilli. [facility] and [facility] for management/treatment. Per patient, [facility] notified her today and stated they cannot accept her insurance. [facility] cannot see her until December or January. Will place referral to [facility] per patient request. Patient states she feels better today with no further nausea or vomiting.. WBC stable. Denies any cough or shortness of breath. Pain is stable I have personally reviewed the past medical history, past surgical history, medications, social history, and family history, and I have updated the database accordingly. Past Medical History: Past Medical History: Diagnosis Date Breast cancer ([facility]) 2023 mammary carcinoma Deep vein thrombosis ([facility]) 09/18/2023 Left calf Hypertension Knee pain PONV (postoperative nausea and vomiting) Port-A-Cath in place 05/13/2023 Visual impairment Glasses Past Surgical History: Past Surgical History: Procedure Laterality Date ARTHROSCOPIC REPAIR ACL Right 2006 ARTHROSCOPIC REPAIR ACL Left 08/26/2021 BREAST BIOPSY Right 2023 mammary carcinoma EXCISION LYMPH NODE AXILLARY DISSECTION Right 10/28/2023 Performed by Christy He MD at [facility] HYSTERECTOMY IMMEDIATE BREAST RECONSTRUCTION WITH TISSUE RN CRITICAL CARE PLACEMENT Bilateral 10/28/2023 Performed by Jhon rGoss MD at [facility] INCISION DRAINAGE BREAST Left 11/27/2023 Performed by Jhon Gross MD at [facility] MAGNETIC SEED LOCALIZATION EXCISION/BIOPSY MASS BREAST (MAG SEED LOCALIZED TARGETED DISSECTION FOR RETRIEVAL OF PREVIOUSLY CLIPPED LYMPH NODE) Right 10/28/2023 Performed by Christy He MD at [facility] MASTECTOMY BREAST SIMPLE RISK REDUCING SKIN SPARING Left 10/28/2023 Performed by Christy He MD at [facility] MASTECTOMY BREAST SIMPLE SKIN SPARING Right 10/28/2023 Performed by Christy He MD at [facility] MENISCECTOMY Bilateral 2022 PORTACATH PLACEMENT Left left chest REMOVAL RN CRITICAL CARE TISSUE BREAST Left 11/27/2023 Performed by Jhon Gross MD at [facility] RIGHT AXILLARY PROPHYLACTIC BYPASS LYMPHOVENOUS Right 10/28/2023 Performed by Jhon Gross MD at [facility] TONSILLECTOMY AND ADENOIDECTOMY Age 3 [...] 60 min Stress: Stress Concern Present (02/27/2022) [place] [employer] - Occupational Stress Questionnaire Feeling of Stress : To some extent Social Connections: Socially Integrated (02/27/2022) Social Connection and Isolation Panel [NHANES] Frequency of Communication with Friends and Family: Twice a week Frequency of Social Gatherings with Friends and Family: Three times a week Attends [employer] Services: More than 4 times per year [...] Procedure Component Value Units Date/Time Urine culture [[id number]] Collected: 12/02/23 2341 Specimen: Urine Updated: 12/03/23828 Blood culture [[id number]] Collected: 12/02/232235 Specimen: Blood, Peripheral Draw Updated: 12/02/232235 Blood culture [[id number]] Collected: 12/02/232235 Specimen: Blood, Peripheral Draw Updated: 12/02/232235 Anaerobic culture [[id number]] Collected: 11/27/23 154 Specimen: Body Fluid from Breast, Left Updated: 12/02/23 0851 Specimen Notes SPECIMEN A Culture NO GROWTH 5 DAYS Fungal culture includes fungal smear [[id number]] Collected: 11/27/23 154 Specimen: Body Fluid from Breast, Left Updated: 11/28/23 0702 Specimen Notes SPECIMEN A Fungal smear -- NO FUNGAL ELEMENTS SEEN ON DIRECT SMEAR Culture PENDING AFB culture concentrated includes AFB smear [[id number]] (Abnormal) Collected: 11/27/23 1548 Specimen: Body Fluid from Breast, Left Updated: 12/01/23 1056 Specimen Notes SPECIMEN A AFB Smear NO ACID FAST BACILLI (CONCENTRATED SMEAR) Culture ACID FAST BACILLI ISOLATED Aspirate culture includes gram stain [[id number]] (Abnormal) Collected: 11/27/23 1548 Specimen: Aspirate Atr Updated: 12/01/23 1544 Specimen Notes SPECIMEN A Gram Stain Result >25 WHITE BLOOD CELLS/LPF 0 SQUAMOUS EPITHELIAL CELLS/LPF NO ORGANISMS SEEN Culture MODERATE ACID FAST BACILLI ISOLATED REPORT UPDATED GROWTH OBSERVED AT 48 HOURS Mrsa Pcr nasal swab [[id number]] Collected: 11/27/23 0020 Specimen: Nasal Updated: 11/27/23 0957 Mrsa PCR Negative Blood culture [[id number]] Collected: 11/26/23 1715 Specimen: Blood Updated: 12/01/232007 Culture NO GROWTH 5 DAYS Imaging Studies: No results found. Gino Flower APRN, [facility] [phone] Thank you for allowing us to participate in the care of this patient. Please call with questions. Gino Flower APRN-DIAL SCREW ASSEMBLER 12/03/23 1419 ICarlene MD, personally performed park-[facility] diagnostic evaluation on this patient I reviewed [...] Provider: Chris Hollis PA-C PCP: RICHIE HANNA APRN-DIAL SCREW ASSEMBLER Chief Complaint: Fevers History of Present Illness: Ike Flannery is a 53 y.o. female who presented with the above chief complaint. The patient was recently discharged from the hospital after removal of breast equine science instructor secondary to infection. She was discharged on [...] except for the removal of the breast equine science instructor and the IV antibiotics for the infection. [...] seroma status post removal of left breast equine science instructor on November 27, 2023 Hypertension Edema Depression/anxiety [...] 60 min Stress: Stress Concern Present (02/27/2022) [place] [employer] - Occupational Stress Questionnaire Feeling of Stress : To some extent Social Connections: Socially Integrated (02/27/2022) Social Connection and Isolation Panel [NHANES] Frequency of Communication with Friends and Family: Twice a week Frequency of Social Gatherings with Friends and Family: Three times a week Attends [employer] Services: More than 4 times per year [...] last 7 days Lab Units 12/03/23 03512/02/23 2213 11/30/23 0930 11/27/23 0545 11/26/23 1715 [...] call us with any questions at: Office: [phone] Office Answering Service: [phone] Epifanio Henry M.D. This note was created with the assistance of a speech-recognition program. Although the intention is to generate a document that actually reflects the content of the visit, no guarantees can be provided that every mistake has been identified and corrected by editing. [facility] in [facility] Consult note* Carlene Noguera MD - 12/03/2023 2:03 PM EDTAssociated Order(s): IP CONSULT TO INFECTIOUS DISEASES Images from the original note were not included. [facility] - Initial Consult Note Ike Flannery Admit date/time 12/02/2023 9:55 PM Today's Date and Time: 12/03/2023, 2:03 PM Impression: Left breast cellulitis Postop infection of left breast tissue equine science instructor-culture growing acid-fast bacilli Acute kidney injury History [...] care Ambulatory referrals to Infectious Disease at [facility], [facility], [facility] have been placed for F/U acid-fast bacilli. Patient was notified by [facility] that she can not use her insurance over [facility] line. We will send referral per patient request to [facility]. Reason for consultation: Infection on IV antibiotics, established patient Chief complaint Postop problem History of Present Illness: Ike Flannery is a 53 y.o.-year-old female who was initially admitted on 12/02/2023. Patient presents to hospital with complaints fever, chills, and vomiting. Patient was recently admitted and discharged from [facility] after removal of infected tissue equine science instructor. She was discharged home on Vancomycin and Ertapenem to continue tentatively until December 08. [facility]. Last night, we were notified that creatinine was 2.56 and vanco trough 33. Patient also complaining nausea, fever, and chills and was advised to go to ER. Left breast cultures from previous admission are preliminarily growing acid-fast bacilli. Referralshave been made to [facility], and [facility] for management/treatment. Per patient, [facility] [facility] notified her today and stated they cannot accept her insurance. [facility] cannot see her until December or January. Will place referral to [facility] per patient request. Patient states she feels better today with no further nausea or vomiting.. WBC stable. Denies any cough or shortness of breath. Pain is stable I have personally reviewed the past medical history, past surgical history, medications, social history, and family history, and I have updated the database accordingly. Past Medical History: Past Medical History: Diagnosis Date Breast cancer ([facility]) 2023 mammary carcinoma Deep vein thrombosis ([facility]) 09/18/2023 Left calf Hypertension Knee pain PONV (postoperative nausea and vomiting) Port-A-Cath in place 05/13/2023 Visual impairment Glasses Past Surgical History: Past Surgical History: Procedure Laterality Date ARTHROSCOPIC REPAIR ACL Right 2006 ARTHROSCOPIC REPAIR ACL Left 08/26/2021 BREAST BIOPSY Right 2023 mammary carcinoma EXCISION LYMPH NODE AXILLARY DISSECTION Right 10/28/2023 Performed by Christy He MD at [facility] HYSTERECTOMY IMMEDIATE BREAST RECONSTRUCTION WITH TISSUE RN CRITICAL CARE PLACEMENT Bilateral 10/28/2023 Performed by Jhon Gross MD at [facility] INCISION DRAINAGE BREAST Left 11/27/2023 Performed by Jhon Gross MD at [facility] MAGNETIC SEED LOCALIZATION EXCISION/BIOPSY MASS BREAST (MAG SEED LOCALIZED TARGETED DISSECTION FOR RETRIEVAL OF PREVIOUSLY CLIPPED LYMPH NODE) Right 10/28/2023 Performed by Christy He MD at [facility] MASTECTOMY BREAST SIMPLE RISK REDUCING SKIN SPARING Left 10/28/2023 Performed by Christy He MD at [facility] MASTECTOMY BREAST SIMPLE SKIN SPARING Right 10/28/2023 Performed by Christy He MD at [facility] MENISCECTOMY Bilateral 2022 PORTACATH PLACEMENT Left left chest REMOVAL RN CRITICAL CARE TISSUE BREAST Left 11/27/2023 Performed by Jhon Gross MD at [facility] RIGHT AXILLARY PROPHYLACTIC BYPASS LYMPHOVENOUS Right 10/28/2023 Performed by Jhon Gross MD at [facility] TONSILLECTOMY AND ADENOIDECTOMY Age 3 [...] 60 min Stress: Stress Concern Present (02/27/2022) [place] [employer] - Occupational Stress Questionnaire Feeling of Stress : To some extent Social Connections: Socially Integrated (02/27/2022) Social Connection and Isolation Panel [NHANES] Frequency of Communication with Friends and Family: Twice a week Frequency of Social Gatherings with Friends and Family: Three times a week Attends [facility] Services: More than 4 times per year [...] Procedure Component Value Units Date/Time Urine culture [[id number]] Collected: 12/02/23 2341 Specimen: Urine Updated: 12/03/23 0829 Blood culture [[id number]] Collected: 12/02/232235 Specimen: Blood, Peripheral Draw Updated: 12/02/232235 Blood culture [[id number]] Collected: 12/02/232235 Specimen: Blood, Peripheral Draw Updated: 12/02/232235 Anaerobic culture [[id number]] Collected: 11/27/23 154 Specimen: Body Fluid from Breast, Left Updated: 12/02/23 0851 Specimen Notes SPECIMEN A Culture NO GROWTH 5 DAYS Fungal culture includes fungal smear [[id number]] Collected: 11/27/23 154 Specimen: Body Fluid from Breast, Left Updated: 11/28/23 0702 Specimen Notes SPECIMEN A Fungal smear -- NO FUNGAL ELEMENTS SEEN ON DIRECT SMEAR Culture PENDING AFB culture concentrated includes AFB smear [[id number]] (Abnormal) Collected: 11/27/23 1548 Specimen: Body Fluid from Breast, Left Updated: 12/01/23 1056 Specimen Notes SPECIMEN A AFB Smear NO ACID FAST BACILLI (CONCENTRATED SMEAR) Culture ACID FAST BACILLI ISOLATED Aspirate culture includes gram stain [[id number]] (Abnormal) Collected: 11/27/23 1548 Specimen: Aspirate Atr Updated: 12/01/23 1544 Specimen Notes SPECIMEN A Gram Stain Result >25 WHITE BLOOD CELLS/LPF 0 SQUAMOUS EPITHELIAL CELLS/LPF NO ORGANISMS SEEN Culture MODERATE ACID FAST BACILLI ISOLATED REPORT UPDATED GROWTH OBSERVED AT 48 HOURS Mrsa Pcr nasal swab [[id number]] Collected: 11/27/23 0020 Specimen: Nasal Updated: 11/27/23 0957 Mrsa PCR Negative Blood culture [[id number]] Collected: 11/26/23 1715 Specimen: Blood Updated: 12/01/23 2008 Culture NO GROWTH 5 DAYS Imaging Studies: No results found. Gino Flower APRN, DIAL SCREW ASSEMBLER [phone] Thank you for allowing us to participate in the care of this patient. Please call with questions. Gino Flower APRN-DIAL SCREW ASSEMBLER 12/03/23 1419 Carlene Landon MD, personally performed [id number] diagnostic evaluation on this patient I reviewed and performed all the ross component of the patient visit I reviewed CELINA history, exam and MDM - Carlene Noguera MD 12/03/23 3:19 PM [facility]10-03-2024 Consult note* Epifanio Henry MD - [...] from the hospital after removal of breast equine science instructor secondary to infection. She was discharged on [...] except for the removal of the breast equine science instructor and the IV antibiotics for the infection. [...] seroma status post removal of left breast equine science instructor on November 27, 2023 Hypertension Edema Depression/anxiety [...] 60 min Stress: Stress Concern Present (02/27/2022) [place] [employer] - Occupational Stress Questionnaire Feeling of Stress : To some extent Social Connections: Socially Integrated (02/27/2022) Social Connection and Isolation Panel [NHANES] Frequency of Communication with Friends and Family: Twice a week Frequency of Social Gatherings with Friends and Family: Three times a week Attends [facility] Services: More than 4 times per year [...] to participate in the care of Ike Rondonchen and please do not hesitate to call us with any questions at: Office: [phone] Office Answering Service: [phone] Epifanio Henry M.D. This note was created with the assistance of a speech-recognition program. Although the intention is to generate a document that actually reflects the content of the visit, no guarantees can be provided that every mistake has been identified and corrected by editing. [facility]10-03-2024 Progress note* Discharge Planning Note - Heike Anderson - 12/03/2023 9:59 AM EDT DISCHARGE PLANNING NOTE Referral to [facility], [email or web address]- [place], [place] [facility] - (P# ; F# ) [facility]10-03-2024 Progress note* Discharge Planning Note - Mariah Starr RN - 12/03/2023 9:16 AM EDT DISCHARGE PLANNING NOTE Automobile Body Repairer met with patient and at bedside, introduced [...] IV antibiotics - [facility] drawing labs three days a week and weekly port dressing changes. Patient denies need for transportation/ food/ prescription medication assistance resources. PCP: RICHIE HANNA APRN-DIAL SCREW ASSEMBLER Pharmacy:[facility] in [place] PCP and pharmacy confirmed with patient. CN offered to assist with follow up appointment arrangements, patient declined need. Current discharge plan is: home with IV antibiotics Task sent to [facility] to send referral to [facility]. Will continue to follow as plan of care develops. CN discussed benefits and importance of medication compliance and follow ups. - MARIAH STARR RN 12/03/23 9:16 AM [facility]10-[facility] Plan of care note* Plan of Care - Shanice Hogan RN - 12/03/2023 1:08 AM EDT Problem: Low Risk Fall Score Description: [place] Fall Score of 0 - 24 or indicated by [facility] Assessment Goal: Patient should be free from fall Description: Interventions: 1. [place] to environment 2. Hourly rounds addressing the [...] non-skid footwear 11. Teach patient and patient u.s. representative to maintain environment for safety and [...] Description: INTERVENTIONS: 1. Encourage patient or legal u.s. representative to report early pain and ask [...] per policy 9. Teach patient or legal u.s. representative interventions for comforting Outcome: Progressing Note: [...] at the bedside 7. Instruct patient/ patient u.s. representative about use of safety devices 8. Include patient/ patient u.s. representative in decisions related to safety Outcome: [...] hygiene technique 7. Identify and instruct patient/patient u.s. representative in use of appropriate isolation precautionsfor identified infection/symptoms 8. Provide and discuss with patient/patient u.s. representative on educational MDRO sheet 9. Encourage and monitor nutritional status daily and consult supervisor yard if indicated 10. Implement neutropenic guidelines as needed 11. Review exposure to history of communicable disease and recent travel history on admission 12. Encourage annual influenza vaccine 13. Encourage pneumonia vaccine Outcome: Progressing Note: Evaluation of progress towards goal: Afebrile, labs and VS monitored Problem: Knowledge Deficit Goal: Patient/patient u.s. representative demonstrates understanding of disease process, treatment [...] Collaborate with ancillary departments 14. Include patient/patient u.s. representative in decisions related to anxiety Outcome: [...] providing care 6. Collaborate with pastoral/spiritual care, 7th grade social studies teacher, mental health counselor as needed. 7. Instruct patient on diversional activities such as physical activity, distraction, and deep breathing exercises to assist with coping 8. Involve patient's u.s. representative in care Outcome: Progressing Note: Evaluation [...] hydration as ordered 5. Instruct patient/ legal u.s. representative on nutrition/diet; fluid/hydration restrictions as appropriate Outcome: Progressing Note: Evaluation of progress towards goal: Display of normal lab values. Electrolytes are replaced as needed. [facility]10-03-2024 History and physical note* Elayne Chow MD - 12/03/2023 12:25 AM EDT Images from the original note were not included. [facility] INTERNAL MEDICINE [facility] -EMERGENCY DEPT [address] [place] [phone] Hospital Medicine History & Physical Patient: Ike [...] taking: Reported on 10/28/2023 03/07/22 Richie Hanna, WEB DEVELOPMENT INSTRUCTOR-DIAL SCREW ASSEMBLER capecitabine (XELODA) 500 mg chemo tablet Take by mouth after surgery Patient not taking: Reported on 10/16/2023 10/13/23 Not In System Ref Prov chlorthalidone (HYGROTON) 25 mg tablet Take 0.5 tablets (12.5 mg total) by mouth daily. 03/03/23 Not In System Ref Prov cyclobenzaprine (FLEXERIL) 10 mg tablet TAKE ONE TABLET BY MOUTH ONCE DAILY IN THE EVENING 04/28/23 Kaye Manuel APRN-LINE CAMERA OPERATOR dexAMETHasone (DECADRON) 1 mg tablet TAKE ONE [...] a past medical history of Breast cancer ([facility]) (2023), Deep vein thrombosis ([facility]) (09/18/2023), Hypertension, Knee pain, PONV (postoperative nausea [...] excision (Right, 10/28/2023); Mastectomy (Left, 10/28/2023); Tissue equine science instructor placement (Bilateral, 10/28/2023); Lymph node dissection (Right, 10/28/2023); Tissue equine science instructor removal (Left, 11/27/2023); and Incision and drainage [...] data in the 24 hours ending 12/02/23 5618 Physical Exam Constitutional: General: Not in acute distress. Appearance: Normal appearance and is well-developed. HENT: Head: Normocephalic and atraumatic. Right Ear: External ear normal. Left Ear: External ear normal. Nose: Nose normal. Mouth/Throat: Lips: [place]. Eyes: General: No scleral icterus. Extraocular Movements: [...] LIST Principal Problem: MIRNA (acute kidney injury) ([facility]) ASSESSMENT & PLAN Acute kidney [...] course. CHRIS HOLLIS PA-C 12/03/2023 12:26 AM [facility] 7AM-7PM (all facilities): EpicChat or page through Vocera. 7PM-7AM ([facility], [facility] Psychiatry and Inpatient Rehab): EpicChat or page, [phone]. 7PM-7AM ([place], [place], [place], [place] and [facility] Rehab): EpicChat or page through Vocera. [...] ID and Nephrology input. Elayne Chow MD [facility]10-03-2024 History and physical note* Elayne Chow MD - 12/03/2023 12:25 AM EDT Images from the original note were not included. [facility] INTERNAL MEDICINE [facility] -EMERGENCY DEPT [address] [place] [phone] Hospital Medicine History & Physical Patient: Ike [...] DAILY IN THE EVENING 04/28/23 SulmaMarilu Manuel APRN-LINE CAMERA OPERATOR dexAMETHasone (DECADRON) 1 mg tablet TAKE ONE TABLET BY MOUTH TWICE A DAY ON DAYS 3-6 AFTER CHEMOTHERAPY FOR FATIGUE Patient not taking: Reported on 10/16/2023 04/21/23 Not In System Ref Prov diazePAM (VALIUM) 5 mg tablet Take 1 tablet (5 mg total) by mouth every 6 (six) hours as needed formuscle spasms. 11/11/23 Marisela Cuevas APRN-DIAL SCREW ASSEMBLER DULoxetine (CYMBALTA) 30 mg capsule Take 1 [...] for 10 days. 11/29/23 12/09/23 Leelee Lieberman APRN-DIAL SCREW ASSEMBLER ferrous sulfate 325 (65 FE) mg tablet Take 1 tablet (325 mg total) by mouth in the morning. Patient not taking: Reported on 07/30/2023 03/07/22 Richie Hanna APRN-DIAL SCREW ASSEMBLER fluticasone propionate (FLONASE) 50 mcg/actuation nasal spray [...] a past medical history of Breast cancer ([facility]) (2023), Deep vein thrombosis ([facility]) (09/18/2023), Hypertension, [...] excision (Right, 10/28/2023); Mastectomy (Left, 10/28/2023); Tissue equine science instructor placement (Bilateral, 10/28/2023); Lymph node dissection (Right, 10/28/2023); Tissue equine science instructor removal (Left, 11/27/2023); and Incision and drainage [...] data in the 24 hours ending 12/02/23 9862 Physical Exam Constitutional: General: Not in acute distress. Appearance: Normal appearance and is well-developed. HENT: Head: Normocephalic and atraumatic. Right Ear: External ear normal. Left Ear: External ear normal. Nose: Nose normal. Mouth/Throat: Lips: [place]. Eyes: General: No scleral icterus. Extraocular Movements: [...] LIST Principal Problem: MIRNA (acute kidney injury) ([facility]) ASSESSMENT & PLAN Acute kidney [...] HOLLIS PA-C 12/03/2023 12:26 AM [facility] Internal Medicine 7AM-7PM (all facilities): EpicChat or page through Pheedo. 7PM-7AM ([facility], [facility] Psychiatry and Inpatient Rehab): EpicChat or page, [phone]. 7PM-7AM ([place], [place], [place], [place] and [facility] Rehab): EpicChat or page through Fresh Nationera. Chris Hollis PA-C 12/03/23 0025 Chris Hollis [...] input. Elayne Chow MD [facility] Physician Emergency department Note* Kayleigh Hartley, [...] [facility] Dr. Hartley at 10:13 [...] to drink water. 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?: No Problem List Items Addressed This Visit None Past Medical History: Diagnosis Date Breast cancer ([facility]) 2023 mammary carcinoma Deep vein thrombosis ([facility]) 09/18/2023 Left calf Hypertension Knee pain PONV (postoperative nausea and vomiting) Port-A-Cath in place 05/13/2023 Visual impairment Glasses Past Surgical History: Procedure Laterality Date ARTHROSCOPIC REPAIR ACL Right 2006 ARTHROSCOPIC REPAIR ACL Left 08/26/2021 BREAST BIOPSY Right 2023 mammary carcinoma EXCISION LYMPH NODE AXILLARY DISSECTION Right 10/28/2023 Performed by Christy He MD at [facility] HYSTERECTOMY IMMEDIATE BREAST RECONSTRUCTION WITH TISSUE RN CRITICAL CARE PLACEMENT Bilateral 10/28/2023 Performed by Jhon Gross MD at [facility] INCISION DRAINAGE BREAST Left 11/27/2023 Performed by Jhon Gross MD at [facility] MAGNETIC SEED LOCALIZATION EXCISION/BIOPSY MASS BREAST (MAG SEED LOCALIZED TARGETED DISSECTION FOR RETRIEVAL OF PREVIOUSLY CLIPPED LYMPH NODE) Right 10/28/2023 Performed by Christy He MD at [facility] MASTECTOMY BREAST SIMPLE RISK REDUCING SKIN SPARING Left 10/28/2023 Performed by Christy He MD at [facility] MASTECTOMY BREAST SIMPLE SKIN SPARING Right 10/28/2023 Performed by Christy He MD at [facility] MENISCECTOMY Bilateral 2022 PORTACATH PLACEMENT Left left chest REMOVAL RN CRITICAL CARE TISSUE BREAST Left 11/27/2023 Performed by Jhon Gross MD at [facility] RIGHT AXILLARY PROPHYLACTIC BYPASS LYMPHOVENOUS Right 10/28/2023 Performed by Jhon Gross MD at [facility] TONSILLECTOMY AND ADENOIDECTOMY Age 3 TUMOR [...] of 12/09/23 1236 MIRNA (acute kidney injury) ([facility]) Infection of deep incisional surgical site after procedure, initial encounter 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 Hartley. Chart Reviewed. Date: [...] bolus (1,000 mL intravenous New Bag 12/02/23 8025) Medication List None Diagnosis: 1. MIRNA (acute kidney injury) ([facility]) Disposition: Patient's disposition: Admit Patient's condition is stable. Critical Care time: Provider Statement By electronically signing this emergency patient record, the Emergency Physician/TUFT MACHINE OPERATOR/PA-C attests that all entries made into the electronic medical record by annamarie Pak prior to the Physician/TUFT MACHINE OPERATOR/PA-C signature reflect an accurate accounting of the evaluation and care rendered by that Malini sullivan Physician/TUFT MACHINE OPERATOR/PA-C. The Emergency Physician/TUFT MACHINE OPERATOR/PA-C assumes full responsibility for those entries. The Emergency Physician/TUFT MACHINE OPERATOR/PA-C also attests that any patient testing or treatment that was instituted by nursing staff in accordance to Emergency Department Preemptive Guidelines have been reviewed and unless so stated elsewhere in this patient chart, the Physician/TUFT MACHINE OPERATOR/PA-C agrees with the testing and care provided. Provider Statement: By electronically signing this emergency patient record, the Emergency Physician/TUFT MACHINE OPERATOR/PA-C attests that all entries made into the electronic medical record by the scribe prior to the Physician/TUFT MACHINE OPERATOR/PA-C signature reflect an accurate accounting of the evaluation and care rendered by that Emergency Physic milagro/TUFT MACHINE OPERATOR/PA-C. The Emergency Physician/TUFT MACHINE OPERATOR/PA-C assumes full responsibility for those entries. Jeff Becker 12/02/23 2221 Jfef Becker 12/02/23 2305 Kayleigh Hartley DO 12/05/23 3694 [facility]10-02-2024 Emergency department Note* Kayleigh Hartley DO [...] chills and was sent by [facility] Inital Evaluation by Dr. Hartley at 10:13 [...] to drink water. 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?: No Problem List Items Addressed This Visit None Past Medical History: Diagnosis Date Breast cancer ([facility]) 2023 mammary carcinoma Deep vein thrombosis ([facility]) 09/18/2023 Left calf Hypertension Knee pain PONV (postoperative nausea and vomiting) Port-A-Cath in place 05/13/2023 Visual impairment Glasses Past Surgical History: Procedure Laterality Date ARTHROSCOPIC REPAIR ACL Right 2006 ARTHROSCOPIC REPAIR ACL Left 08/26/2021 BREAST BIOPSY Right 2023 mammary carcinoma EXCISION LYMPH NODE AXILLARY DISSECTION Right 10/28/2023 Performed by Christy He MD at [facility] HYSTERECTOMY IMMEDIATE BREAST RECONSTRUCTION WITH TISSUE RN CRITICAL CARE PLACEMENT Bilateral 10/28/2023 Performed by Jhon Gross MD at [facility] INCISION DRAINAGE BREAST Left 11/27/2023 Performed by Jhon Gross MD at [facility] MAGNETIC SEED LOCALIZATION EXCISION/BIOPSY MASS BREAST (MAG SEED LOCALIZED TARGETED DISSECTION FOR RETRIEVAL OF PREVIOUSLY CLIPPED LYMPH NODE) Right 10/28/2023 Performed by Christy He MD at [facility] MASTECTOMY BREAST SIMPLE RISK REDUCING SKIN SPARING Left 10/28/2023 Performed by Christy He MD at [facility] MASTECTOMY BREAST SIMPLE SKIN SPARING Right 10/28/2023 Performed by Christy He MD at [facility] MENISCECTOMY Bilateral 2022 PORTACATH PLACEMENT Left left chest REMOVAL RN CRITICAL CARE TISSUE BREAST Left 11/27/2023 Performed by Jhon Gross MD at [facility] RIGHT AXILLARY PROPHYLACTIC BYPASS LYMPHOVENOUS Right 10/28/2023 Performed by Jhon Gross MD at [facility] TONSILLECTOMY AND ADENOIDECTOMY Age 3 [...] of 12/09/23 1236 MIRNA (acute kidney injury) ([facility]) Infection of deep incisional surgical [...] None Diagnosis: 1. MIRNA (acute kidney injury) ([facility]) Disposition: Patient's disposition: Admit Patient's condition is stable. Critical Care time: Provider Statement By electronically signing this emergency patient record, the Emergency Physician/TUFT MACHINE OPERATOR/PA-C attests that all entries made into the electronic medical record by annamarie Pak prior to the Physician/TUFT MACHINE OPERATOR/PA-C signature reflect an accurate accounting of the evaluation and care rendered by [facility] Phys[facility]/TUFT MACHINE OPERATOR/PA-C. The Emergency Physician/TUFT MACHINE OPERATOR/PA-C assumes full responsibility for those entries. The Emergency Physician/TUFT MACHINE OPERATOR/PA-C also attests that any patient testing or treatment that was instituted by nursing staff in accordance to Emergency Department Preemptive Guidelines have been reviewed and unless so stated elsewhere in this patient chart, the Physician/TUFT MACHINE OPERATOR/PA-C agrees with the testing and care provided. Provider Statement: By electronically signing this emergency patient record, the Emergency Physician/TUFT MACHINE OPERATOR/PA-C attests that all entries made into the electronic medical record by the scribe prior to the Physician/TUFT MACHINE OPERATOR/PA-C signature reflect an accurate accounting of the evaluation and care rendered by that Emergency Physic milagro/TUFT MACHINE OPERATOR/PA-C. The Emergency Physician/TUFT MACHINE OPERATOR/PA-C assumes full responsibility for those entries. Jeff Becker 12/02/23 2221 Jeff Becker 12/02/23 2305 Kayleigh Hartley DO 12/05/23 2358 documented in this encounterMercy Health Fairfield HospitalFocus Media [facility] Community [id number] History of Present illness Narrative* Gino Flower APRN-DIAL SCREW ASSEMBLER - 12/02/2023 9:25 PM EDT 1300: spoke with Purvi RENAE from [facility] who received call from [facility] RN to report Vanco level of 33. She stated that infusion center RN then infused patient's vancomycin. Reportedly, patient had brought her vanco dose with her when she went to infusion center to get labs drawn and asked RN at center to shook machine operator her vanco while she was there. Purvi stated she called [facility] to speak with pharmacist regarding vanco trough and that the patient received vanco dose. I called RN at infusion center (John) and provided clinic fax number to send lab results. AMEENA Vallejo 12/02/232132 documented in [facility]Shel[facility] History of Present illness Narrative* AMEENA [...] I and D with removal of tissue equine science instructor 11/27/2023 I have directed patient to the ER at this time for evaluation . Patient states she will report to [facility] ER Once she arrives to [facility] we would like the following: Consideration for admission Check Blood Cultures Check Creat Please contact our service for further direction ([facility], Dr Carlene Noguera) AMEENA Salazar 12/02/231940 documented in this encounterSheltering Arms Hospital10-02-2024 Miscellaneous Notes* Telephone Encounter - Kendra Lewis - 12/02/2023 7:20 PM EDT Contract: 174 RE Chills, Nausea, Fever 100.9 * Telephone Encounter - Kendra Lewis - 12/02/2023 7:20 PM EDT Secure chat sent to Shanice Shook CNP documented in this encounterSheltering Arms Hospital10-02-2024 Telephone encounter Note* Telephone Encounter - Kendra Lewis - 12/02/2023 7:20 PM EDT Contract: 174 RE Chills, Nausea, Fever 100.9 [facility] Telephone encounter Note* Telephone Encounter - Kendra Lewis - 12/02/2023 7:20 PM EDT Secure chat sent to Shanice Shook CNP [facility]10-[facility] History of Present illness Narrative* AMEENA Gomez - 12/02/2023 7:06 PM EDT Pt with increase to creatinine to 2.56 from this morning December 02 2023, previous level 0.62 frompt2023 Vanco trough 33 from this morning December [...] Discussed with bio script pharmacist Zohra from [facility]. AMEENA Gomez 12/02/231916 documented in this encounterSheltering Arms Hospital10-02-2024 History of Present illness Narrative* Jhon Gross MD - 12/02/2023 10:00 AM EDT [facility] [address] Office Jhon Gross MD, PhD AMEENA Kennedy PA-C Plastic Surgery Progress Note Reason for visit : 1 week postoperative appointment. History of present illness: Ike Flannery 53 y.o. is here today for a follow up after I&D of left breast with removal of left breast tissue equine science instructor on 11/27/2023. She presents to the office [...] air. Follow up next week for tissue equine science instructor filled. She was advised to call the office any questions orconcerns in the interim. - AMEENA Rand 12/02/23 11:55 AM JHON Landon MD, PHD personally performed the face to face evaluation on this patient. I discussed with the patient and confirmed the accuracy and completeness of the aforementioned history,and I personally performed the clinical examination of the patient. I have established and discussed the course of treatment with the patient. Jhon Gross MD, PhD [facility] Total time spent was 15 minutes: Preparing to see the patient (e.g., review of tests) Obtaining and/or reviewing separately obtained history Performing a medically appropriate examination and/or evaluation Counseling and educating the patient/family/caregiver Ordering medications, tests, or procedures Referring and communicating with other health care coordination manager (not separately reported) Documenting clinical information in the electronic or other health record Independently interpreting results (not separately reported) and communicating results to the patient/family/caregiver Care coordination (not separately reported) Please note that portions of this note were generated using voice recognition [employer] dictation software. Although every effort was made to ensure the accuracy of this automated mft, some errors in mft may have occurred. documented in this encounterSheltering Arms Hospital10-02-2024 Miscellaneous Notes* Telephone Encounter - Elisa [...] I and D with removal of tissue equine science instructor 11/27/2023 Discharge Specialty: Infectious Disease *Name of Discharging Facility: [facility] Date of Facility Discharge: Admission 11/26/23 Discharge 11/30/23 Date of Interactive Contact and Name of Technical Services Manager: 12/02/23 1011 am Spoke to patient. She was at Dr. Barbosa office. Patient was agreeable for play writer to call back in the afternoon [...] Up Appointments with Providers: Primary: RICHIE HANNA APRN-DIAL SCREW ASSEMBLER Specialty: Infectious Disease 12/08/23 Specialty: Specialty: Review [...] pain and SOB. Patient is going to [facility] three days a week for dressing change [...] by the Patient: NA documented in this encounterSheltering Arms Hospital10-02-2024 Telephone encounter Note* Telephone Encounter - [...] I and D with removal of tissue equine science instructor 11/27/2023 Discharge Specialty: Infectious Disease *Name of Discharging Facility: [facility] Date of Facility Discharge: Admission 11/26/23 Discharge 11/30/23 Date of Interactive Contact and Name of Technical Services Manager: 12/02/23 1011 am Spoke to patient. She was at Dr. Barbosa office. Patient was agreeable for play writer to call back in the afternoon [...] Up Appointments with Providers: Primary: RICHIE HANNA APRN-DIAL SCREW ASSEMBLER Specialty: Infectious Disease 12/08/23 Specialty: Specialty: Review [...] pain and SOB. Patient is going to [facility] three days a week for dressing change [...] Other Services Utilized/Needed by the Patient: NA [facility] Miscellaneous Notes* Telephone Encounter - Concha Mcgregor - 11/28/2023 6:45 PM EDT Contract: Marisel Michel Rm 712 RE IV Reaction to meds * Telephone Encounter - Concha Mcgregor - 11/28/2023 6:45 PM EDT Contract: Called Dr Gross and connected call documented in this encounterSheltering Arms Hospital09-28-2024 Telephone encounter Note* Telephone Encounter - Concha Mcgregor - 11/28/2023 6:45 PM EDT Contract: Marisel Michel Rm 712 RE IV Reaction to meds [facility]09-28-[facility] Telephone encounter Note* Telephone Encounter - Concha Mcgregor - 11/28/2023 6:45 PM EDT Contract: Called Dr Gross and connected call [facility] History of Present illness Narrative* Jhon Gross MD - 11/26/2023 11:45 AM EDT [facility] [address] Office Jhon Gross MD, PhD Marisela Cuevas, WEB DEVELOPMENT INSTRUCTOR-DIAL SCREW ASSEMBLER Shereen Smallwood PA-C Plastic Surgery Progress Note [...] possible infected seroma in the setting tissue equine science instructor reconstruction Recommendations: discussed with patient that given the appearance of her breast we would like to becautious and admit her to the hospital for IV antibiotics. Discussed that we have a suspicion for infection. We discussed that we would like to proceed with removal of her tissue equine science instructor tomorrow and place a drain. We discussed since she does need post operative radiation that we would not want toplace a new tissue equine science instructor. Direct admission has been started. Please note that portions of this note were generated using voice recognition [employer] dictation software. Although every effort was made to ensure the accuracy of this automated mft, some errors in mft may have occurred. I, JHON GROSS MD, PHD personally performed the face to face evaluation on this patient. I discussed with the patient and confirmed the accuracy and completeness of the aforementioned history,and I personally performed the clinical examination of the patient. I have established and discussed the course of treatment with the patient. Jhon Gross MD, PhD [facility] Total time spent was 25 minutes: Preparing to see the patient (e.g., review of tests) Obtaining and/or reviewing separately obtained history Performing a medically appropriate examination and/or evaluation Counseling and educating the patient/family/caregiver Ordering medications, tests, or procedures Referring and communicating with other health care coordination manager (not separately reported) Documenting clinical information in the electronic or other health record Independently interpreting results (not separately reported) and communicating results to the patient/family/caregiver Care coordination (not separately reported) documented in this encounterSheltering Arms Hospital09-25-2024 History of Present illness Narrative* AMEENA Kennedy - 11/25/2023 3:00 PM EDT [facility] [address] Office Jhon Gross MD, PhD AMEENA Kennedy PA-C Plastic Surgery Progress Note Reason for visit : Tissue equine science instructor fill and drain removal. History of present illness: Ike Flannery 53 y.o. is here today for a follow up after bilateral breast reconstruction with placement of tissue expanders. She presents to the office today for removal ARTEMIO drain and tissue equine science instructor filled. She does need postoperative radiation therapy. [...] verbal consent was obtained, the left tissue equine science instructor aspirate port, was identified using a magnet. This area was cleansed with alcohol, and Betadine. Then using a 25 gauge needle, approximately 150ml cloudy yellow appearing fluid was aspirated from the left tissue equine science instructor. Patient tolerated well. Adequate hemostasis was achieved, and a sterile bandage was applied. Procedure note : Tissue equine science instructor fill port, was identified using magnet. This area was cleansed with alcohol, and Betadine. Then using a 25 gauge needle, approximately 150ml normal saline was injected into right tissue equine science instructor(s). Patient tolerated well. Adequate hemostasis was achieved, and a sterile bandage was applied. TOTAL FILL VOLUME: 250ML Impression: 1. Encounter for postoperative care 2. Acquired absence of breast, bilateral Recommendations: Right-sided ARTEMIO drain removed in office today. Patient tolerated well. Left tissue equine science instructor was then aspirated. Patient tolerated well. Discussed given that has a slightly cloudy appearance that it will send this off for culture. Discussed this takes approximately 5 days to get results. I will contact her with these when they are available. Held off on filling her left tissue equine science instructor in office today given fluid collection. Right tissue equine science instructor filled performed. Patient tolerated well. Continue with [...] to ensure the accuracy of this automated mft, some errors in mft may have occurred. AMEENA Kennedy 11/25/23 1719 documented in this encounterMercy Health Fairfield HospitalFocus Media [facility] [id number] History of Present illness Narrative* AMEENA Kennedy - 11/18/2023 11:30 AM EDT [facility] [address] [place] [address]. [address] Office Jhon Gross MD, PhD Marisela Cuevas, [facility] Shereen Smallwood PA-C Plastic Surgery Progress Note [...] routine postoperative appointment, drain removal and tissue equine science instructor filled. She states that she is doing [...] drainsites appear benign. Procedure note : Tissue equine science instructor fill port, was identified using magnet. This area was cleansed with alcohol, and Betadine. Then using a 25 gauge needle, approximately 100ml normal saline was injected into bilateral tissue equine science instructor(s). Patient tolerated well. Adequate hemostasis was achieved, [...] removed in office today. Tubing intact. Tissue equine science instructor fill was then performed. Patient tolerated well. [...] comfortable. Discussed it is okay to use [id number] acetaminophen or ibuprofen for pain after tissue equine science instructor filled. Continue to refrain from anyheavy lifting pushing or pulling. Follow up next week for drain removal And possible tissue equine science instructor filled. She was advised to call the office with any questions or concerns in the interim. - AMEENA Rand 11/18/23 1:15 PM Please note that portions of this note were generated using voice recognition [employer] dictation software. Although every effort was made to ensure the accuracy of this automated mft, some errors in mft may have occurred. AMEENA Kennedy 11/18/23 1316 documented in this encounterSheltering Arms Hospital09-11-2024 History of Present illness Narrative* Marisela Cuevas, ROBER-DIAL SCREW ASSEMBLER - 11/11/2023 1:30 PM EDT [facility] [address] Office Jhon Gross MD, PhD Marisela Cuevas, WEB DEVELOPMENT INSTRUCTOR-DIAL SCREW ASSEMBLER Shereen Smallwood PA-C Plastic Surgery Progress Note [...] of right breast of female, estrogen receptor positive([facility]) 4. Acquired absence of breast, bilateral Recommendations: [...] week for possible drain removal and tissue equine science instructor filled. Advised to call the office any questions or concerns in the interim. - AMEENA Rand 11/11/23 2:27 PM Please note that portions of this note were generated using voice recognition [employer] dictation software. Although every effort was made to ensure the accuracy of this automated mft, some errors in mft may have occurred. AMEENA Kennedy 11/11/23 1427 documented in this [facility]09-11-2024 Miscellaneous Notes* Addendum Note - AMEENA Kennedy - 11/11/2023 1:30 PM EDT Addended by: MARISELA CUEVAS on: 11/11/2023 02:38 PM Modules accepted: Orders documented in this [facility]09-11-2024 Note* Addendum Note - AMEENA Kennedy - 11/11/2023 1:30 PM EDTAddended by: MARISELA CUEVAS on: 11/11/2023 02:38 PM Modules accepted: Orders [facility]09-04-[facility] History of Present illness Narrative* AMEENA Kennedy - 11/04/2023 11:00 AM EDT [facility] [address] Office Jhon Gross MD, PhD Marisela Cuevas, WEB DEVELOPMENT INSTRUCTOR-DIAL SCREW ASSEMBLER Shereen Smallwood PA-C Plastic Surgery Progress Note [...] needs radiation therapy. Discussed deflated contralateral tissue equine science instructor prior to radiation simulation. Encouraged patient tosupplement with protein given she is having a slight decreased appetite. Continue to stay well hydrated. Follow-up in 1 week for possible drain removal. She was advised to call the office any questions orconcerns in the interim. - AMEENA Rand 11/04/23 11:17 AM Please note that portions of this note were generated using voice recognition [employer] dictation software. Although every effort was made to ensure the accuracy of this automated mft, some errors in mft may have occurred. AMEENA Kennedy 11/04/23 1143 documented in this encounterSheltering Arms Hospital08-23-2024 History of Present illness Narrative* KHLOE Yoder - 10/23/2023 2:12 PM EDT [employer] Social Work Check request submitted x3. Automobile Body Repairer sent correspondence to patient to update her. - KHLOE Yoder 10/23/23 2:12 PM documented in this encounterSheltering Arms Hospital08-20-2024 History of Present illness Narrative* KHLOE Yoder - 10/20/2023 2:38 PM EDT [employer] Work Vendor packet submitted.- KHLOE Yoder 10/20/23 2:39 PM documented in this encounterSheltering Arms Hospital08-16-2024 History of Present illness Narrative* Niurka Stockton [...] of all information reviewed. documented in this encounterSheltering Arms Hospital08-16-2024 History of Present illness Narrative* KHLOE Yoder - 10/16/2023 1:58 PM EDT [employer] Social Work Spoke with patient. Foundation request made. Add change submitted. - KHLOE Yoder 10/16/23 1:59 PM documented in this encounterSheltering Arms Hospital08-16-2024 History and physical note* AMEENA Marin - 10/16/2023 11:00 AM EDT PRE-ADMISSION TESTING HISTORY AND PHYSICAL EXAM DATE: 10/16/23 PCP: AMEENA GARCIA HISTORY OF PRESENT ILLNESS: Ike Flannery, a 53 y.o. White or female, presents to [facility] for a pre-surgical H&P. The patient has [...] Past Medical History: Diagnosis Date Breast cancer ([facility]) 2023 mammary carcinoma Deep vein thrombosis ([facility]) 09/18/2023 Left calf Hypertension Knee pain PONV [...] the most recent lab values available in [facility] at the time ofthe office visit and [...] Risk Reducing Skin Sparing - Left Exchange Grading Clerk Tissue Breast - Bilateral Skin Plasty Tissue Rearrangement (De Epithelialized Inferior Autoderm Flap 80337) - Bilateral Bypass LymphovenousProphylactic(Psb) - Right with Dr. He and Dr. Gross. AMEENA Marin 10/16/23 [address] [employer] Work Phone: 1(135) 578-197108-16-2024 History and physical note* AMEENA Marin - 10/16/2023 11:00 AM EDT PRE-ADMISSION TESTING HISTORY AND PHYSICAL EXAM DATE: 10/16/23 PCP: AMEENA GARCIA HISTORY OF PRESENT ILLNESS: Ike Flannery, a 53 y.o. White or female, presents to [facility] for a pre-surgical H&P. The patient has [...] Past Medical History: Diagnosis Date Breast cancer ([facility]) 2023 mammary carcinoma Deep vein thrombosis ([facility]) 09/18/2023 Left calf Hypertension Knee pain PONV [...] the most recent lab values available in [facility] at the time ofthe office visit and [...] Risk Reducing Skin Sparing - Left Exchange Grading Clerk Tissue Breast - Bilateral Skin Plasty Tissue Rearrangement (De Epithelialized Inferior Autoderm Flap 69509) - Bilateral Bypass LymphovenousProphylactic(Psb) - Right with Dr. He and Dr. Gross. AMEENA Marin 10/16/23 1405 documented in this encounterSheltering Arms Hospital08-16-2024 Instructions* Patient Instructions* Isabell Merrill RN - 10/16/2023 11:00 AM EDT Your surgery/procedure is scheduled at [facility] on 10-28-2023 at 7:30am Arrival Time 5:30am [facility] Address: [address] [place] [address], [facility], [address] [place] [address] in the Emergency Center Parking lot. Report to the motel front desk attendant in the Emergency/Surgery Registration lobby of the hospital. Please call Pre-Admission Clinic at [phone] if you have any questions prior to surgery. For questions the morning of surgery, please call the Pre-op Department at [phone]. Notify your SURGEON if you develop any [...] would like to schedule therapy at a [facility] facility, please call [phone] ([phone]). Do not use lotions, creams, powders, perfume, make up, cologne or after-shaves day of surgery. Remove ALL jewelry including wedding rings, body piercings, hair extensions that contain metal, nail fijian, make-up, and contact lens. You may brush your teeth the morning of surgery, but do not swallow the water. Wear your dentures and partial plates to the hospital (no adhesive). Shower the night the before. If applicable, use the CHG (chlorhexidine gluconate) soap or wipes. Please be advised, [employer] has transitioned to a cashless payment system. [...] RIGHTS AND RESPONSIBILITIES As a patient at [facility], you have the right to: Receive medical care and be informed of who is taking care of you Be treated with dignity and respect Have a family member/u.s. representative of choice and your physician notified [...] of hospital charges and payment methods Patient/patient u.s. representative responsibilities are to: Provide information about [...] surgery in clean clothes. documented in this encounterSheltering Arms Hospital08-14-2024 History of Present illness Narrative* KHLOE Yoder - 10/14/2023 11:59 PM EDT [employer] Social Work Corresponded regarding foundation assistance. - KHLOE Yoder 10/16/23 10:28 AM documented in this encounterSheltering Arms Hospital07-30-2024 History of Present illness Narrative* KHLOE Yoder - 09/29/2023 2:38 PM EDT [employer] Social Work Corresponded with patient regarding foundation assistance. - KHLOE Yoder 09/29/23 2:40 PM documented in this encounterSheltering Arms Hospital07-29-2024 Miscellaneous Notes* Telephone Encounter - Ana Ibrahim - 09/28/2023 11:06 AM EDT Can she set up wellness this year * Telephone Encounter - Ana Ibrahim - 09/28/2023 11:06 AM EDT Sent mycrichardt msg * Telephone Encounter - Ana Ibrahim - 09/28/2023 11:06 AM EDT LM on VM * Telephone Encounter - [facility] Amosserg - 09/28/2023 11:06 AM EDT LM on VM documented in this encounterSheltering Arms Hospital07-29-2024 Telephone encounter Note* Telephone Encounter - [facility] Patrice - 09/28/2023 11:06 AM EDT Can she set up wellness this year [facility]-29-[facility] Telephone encounter Note* Telephone Encounter - [facility] Patrice - 09/28/2023 11:06 AM EDT Sent mychart msg [facility]-29-[facility] Telephone encounter Note* [facility] 11:06 AM EDT LM on VM [facility]-29-[facility] Telephone encounter Note* Telephone Encounter - [facility] Patrice - 09/28/2023 11:06 AM EDT LM on VM [facility] History of Present illness Narrative* KHLOE Yoder - 08/20/2023 11:59 PM EDT [employer] Social Work *late entry* Met with patient per planned appointment. Patients significant other present as well. Automobile Body Repairer explored needs, focusing on financial. Discussed options and resources. Await patient to provide play writer with financial statements support request. - KHLOE Yoder 08/27/23 8:54 AM documented in this encounterSheltering Arms Hospital06-20-2024 History of Present illness Narrative* Jhon Gross MD - 08/20/2023 10:00 AM EDT [facility] [address] Office Jhon [...] 60 min Stress: Stress Concern Present (02/27/2022) [place] [employer] - Occupational Stress Questionnaire Feeling of Stress : To some extent Social Connections: Socially Integrated (02/27/2022) Social Connection and Isolation Panel [NHANES] Frequency of Communication with Friends and Family: Twice a week Frequency of Social Gatherings with Friends and Family: Three times a week Attends [employer] Services: More than 4 times per year Active Member of Clubs or Organizations: Yes Attends Club or Organization Meetings: 1 to 4 times per year Marital Status: Interpersonal Safety: Unknown (05/28/2023) Received from [facility] Environment Fear of Current or [...] to chemo.). Gastrointestinal: Negative. Musculoskeletal: Negative. Skin: [place] coloration to right breast since chemo has [...] Her breast mass is palpable central breast. [place] discoloration to right breast with out induration. Right breast is more contracted up. Breast tissue is Intertriginous rash in inframammary folds absent. Shoulder grooves are present. MEASUREMENTS: Left Right Base width: 14.5 cm Sternal Notch to Nipple: 26 cm 23 cm IMF to Nipple: 6.5 cm 5 cm Nipple to Nipple 23 cm Nipple-areolar diameter 4 cm 4 cm Female carpentry professional present: yes. Impression : 1. Malignant neoplasm of lower-inner quadrant of right breast of female, estrogen receptor positive([facility]) Plan: We had a lengthy discussion today [...] this note were generated using voice recognition M*[employer] dictation software. Although every effort was made to ensure the accuracy of this automated mft, some errors in mft may have occurred. IJHON MD, PHD personally performed the face to face evaluation on this patient. I discussed with the patient and confirmed the accuracy and completeness of the aforementioned history,and I personally performed the clinical examination of the patient. I have established and discussed the course of treatment with the patient. Jhon Gross MD, PhD [facility] Total time spent was 50 minutes: Preparing to see the patient (e.g., review of tests) Obtaining and/or reviewing separately obtained history Performing a medically appropriate examination and/or evaluation Counseling and educating the patient/family/caregiver Ordering medications, tests, or procedures Referring and communicating with other health care coordination manager (not separately reported) Documenting clinical information in the electronic or other health record Independently interpreting results (not separately reported) and communicating results to the patient/family/caregiver Care coordination (not separately reported) documented in this encounterSheltering Arms Hospital06-06-2024 History of Present illness Narrative* KHLOE Yoder - 08/06/2023 3:20 PM EDT [employer] Social Work Patient returned writers phone call. Introduced self and explained role. Explored needs/concerns. Patient will be having surgery in the coming months after she completes her chemotherapy. Has concerns about finances as she will have time off of work and does not have short term disability. Automobile Body Repairer/SW offered to meet with patient when she at [facility] for her next appointment on 08/19 to explore resources/assistance further. Patient agreed to this. Support provided. - KHLOE Yoder 08/06/23 3:24 PM documented in this encounterSheltering [facility]06-03-[facility]24 History of Present illness Narrative* KHLOE Yoder - 08/03/2023 1:36 PM EDT PCI Social Work Referral- Automobile Body Repairer followed up, placed call to patient. No answer. Automobile Body Repairer left voicemail and call back number. - KHLOE Yoder 08/03/23 1:38 PM documented in this encounterSheltering Arms Hospital05-30-2024 History of Present illness Narrative* Christy He MD - 07/30/2023 3:00 PM EDT Images from the original note were not included. 07/30/2023 DIAGNOSIS: Ike Flannery is a 52 y.o. female who presents to the Breast Surgery Clinic for evaluation and mid chemo discussion regarding her recently diagnosed right breast cancer, IDC grade 3, ER weakly+, DC -, Her 2 Negative (IHC score 0). [...] genetic testing? Yes Do you have Ashkenazi Mandaen ancestry? No HEALTH HISTORY: The patient's past medical history, medications, and allergies have been reviewed in [facility]. PAST MEDICAL HISTORY: Past Medical History: [...] 3 right breast invasive carcinoma, ER weakly positive/DC negative, Her-2 negative, currently undergoing neoadjuvant chemotherapy [...] right breast of female, estrogen receptor positive ([facility]-H[facility]) Staging form: Breast, AJCC 8th Edition - Clinical: Stage IIIC (cT2, cN3, cM0, G3, ER+, DC-, HER2-) - Signed by Christy He MD [...] procedures Referring and communicating with other health care coordination manager (not separately reported) Documenting clinical information in the electronic or other health record Independently interpreting results (not separately reported) and communicating results to the patient/family/caregiver Please note that portions of this note were generated using voice recognition M*Modal dictation software. Although every effort was made to ensure the accuracy of this automated mft, some errors in mft may have occurred. Christy He MD [facility] [phone] documented in this encounterNorth Country HospitalArkmicro [id number] Miscellaneous Notes* Tumor Conference Note - AMEENA [...] guided, right breast 4 o'clock, core biopsy ([facility]: re-read TT): 11mm, invasive ductal carcinoma with areas of necrosis grade 3 score=8. LVI negative. ER12-15% DC- HER2/Yohan by IHC negative 0. Patient Presentation: patient palpated lump - - > abnormality seen on imaging; right axillary lymphadenopathy on CBE Cancer Staging Malignant neoplasm of lower-inner quadrant of right breast of female, estrogen receptor positive (CMS-HCC) Staging form: Breast, AJCC 8th Edition - Clinical: Stage IIIC (cT2, cN3, cM0, G3, ER+, DC-, HER2-) - Signed by Christy He MD [...] regarding trials, Please call Clinical Research at [phone] National Guidelines discussed (NCCN, AUA, NCI, etc): [...] can be directed to the Cancer Registry: [phone] documented in this encounterMercy Health Fairfield HospitalFocus Media [facility] Community [id number] Progress note* Tumor Conference Note - AMEENA [...] guided, right breast 4 o'clock, core biopsy ([facility]: re-read TTH): 11mm, invasive ductal carcinoma with areas of necrosis grade 3 score=8. LVI negative. ER12-15% DC- HER2/Yohan by IHC negative 0. Patient Presentation: patient palpated lump - - > abnormality seen on imaging; right axillary lymphadenopathy on CBE Cancer Staging Malignant neoplasm of lower-inner quadrant of right breast of female, estrogen receptor positive (CMS-HCC) Staging form: Breast, AJCC 8th Edition - Clinical: Stage IIIC (cT2, cN3, cM0, G3, ER+, DC-, HER2-) - Signed by Christy He MD [...] regarding trials, Please call Clinical Research at [phone] National Guidelines discussed (NCCN, AUA, NCI, etc): [...] can be directed to the Cancer Registry: [phone] [employer] Work Phone: [phone] Miscellaneous Notes* Telephone Encounter - iNurka Stockton RN - 05/14/2023 3:26 PM EDTSummary: Post-biopsy assessment Call placed to patient to check status following recent axilla biopsy. Patient reports lots of bruising and some tenderness with pressure @ biopsy site. Patient is aware of biopsy results. She was encouraged to contact the Breast Center if she develops any new problems at biopsy site. Voices understanding. Support offered. documented in this encounterSheltering Arms Hospital03-14-2024 Telephone encounter Note* Telephone Encounter - [...] at biopsy site. Voices understanding. Support offered. [facility]03-12-[facility] Miscellaneous Notes* Telephone Encounter - Ike Irvin RN - 05/12/2023 7:51 AM EDT Notified Emiliana at Dr He office faxing over reports. documented in this encounterSheltering Arms Hospital03-12-2024 Telephone encounter Note* Telephone Encounter - Ike Irvin RN - 05/12/2023 7:51 AM EDT Notified Emiliana at Dr He office faxing over reports. [facility]03-[facility] History of Present illness Narrative* Niurka [...] of all information reviewed. documented in this encounterSheltering Arms Hospital02-27-2024 History of Present illness Narrative* Christy He MD - 04/28/2023 8:00 AM EST Images from the original note were not included. 04/28/23 DIAGNOSIS: Ike Flannery is a 52 y.o. female who presents to the Breast Surgery Clinic for evaluation and recommendations regarding her recently diagnosed right breast cancer, IDC grade 3, ER weakly +, DC -, Her 2 Negative (IHC score 0). [...] genetic testing? Yes Do you have Ashkenazi Mandaen ancestry? No HEALTH HISTORY: The patient's past medical history, medications, and allergies have been reviewed in [facility]. PAST MEDICAL HISTORY: Past Medical History: [...] 3 right breast invasive carcinoma, ER weakly positive/DC negative, Her-2 negative. Cancer Staging No matching [...] radiation is an integral component of treatment. Satishll be evaluated by our radiation oncologists for [...] Need right ax biopsy Referral placed to [facility] rad onc RV 3 months, PRS referral [...] procedures Referring and communicating with other health care coordination manager (not separately reported) Documenting clinical information in the electronic or other health record Independently interpreting results (not separately reported) and communicating results to the patient/family/caregiver Please note that portions of this note were generated using voice recognition [employer] dictation software. Although every effort was made to ensure the accuracy of this automated mft, some errors in mft may have occurred. Christy He MD [facility] [phone] documented in this encounterSheltering Arms Hospital02-01-2024 History of Present illness Narrative* Catie Walker, [employer] - 04/02/2023 11:30 AM EST Reason for [...] nursing note reviewed. Exam conducted with a carpentry professional present. Vitals: Estimated body mass index is [...] breast mammogram done at [facility] on 03/20/23. Results were highly suggestive of malignancy and radiology recommended that patient obtain an ultrasound guided breast biopsy. Patient had ultrasound guided right breast biopsy obtained at [facility] on 03/26/23, biopsy was sent to pathology at [facility]. Reviewed results with patient and [...] and if patient does not hear from merchandising specialist by the time she receives letter to contact Specialist to schedule. Advised patient on VM to call office with any questions. --Catie Johnson LPN documented in this encounterBoone Hospital [id number] Hospital Discharge instructions Patient Education 07/14/2022 14:20:40 [...] numbers. This can be done either in [place]adian (U.S[place] or metric measurements. Note that charts and online BMI calculators are available to help you find your BMI quickly and easily without having to do these calculations yourself. To calculate your BMI in [place]adian ([place] measurements: 1.Measure your weight in pounds [...] Centers for Disease Control and Prevention: www.cdc.gov [place] Heart Association: www.heart.org National Heart, Lung, and Blood Fred: www.nhlbi.nih.gov Summary Body mass index (BMI) is a number that is calculated from a person's weight and height. BMI may help estimate how much of a person's weight is composed of fat. BMI can help identify thosewho may be at higher risk for certain medical problems. BMI can be measured using Grenadian measurements or metric measurements. BMI charts are used to identify whether you are underweight, normal weight, overweight, or obese. This information is not intended to replace advice given to you by your health care provider. Make sure you discuss any questions you have with your health care provider. Document Revised: 11/09/2019 Document Reviewed: 09/16/2019 [employer] Patient Education 2022 [employer]. 07/14/2022 14:20:38 Upper Respiratory Infection, Adult Upper [...] medicines to help relieve symptoms, such as: Xtmy-uei-ocjlzxj cold medicines. Cough suppressants. Coughing is a [...] and other clear broths. General instructions Take gglw-zmw-cnoouen and prescription medicines only as told by [...] and water are not available, use hand complex care nurse practitioner. Avoid touching your mouth, face, eyes, or [...] provider. Document Revised: 09/18/2021 Document Reviewed: 09/18/2021 [employer] Patient Education 2022 [employer]. Follow Up Care 07/14/2022 13:35:56 With:BRENNON JAMESON, BOBBY Sifuentes Address:Unknown When: Unknown [facility] 09-13-2022 History general Narrative - Reported* Type Description Date Medical History heart dysrythmia Medical History Night sweats Medical History Insomnia, unspecified type Medical History hypertension Surgical History hysterectomy dec 2003 Surgical History acl reconstruction right knee n ov 2004 Surgical History leg dec 2014 Hospitalization History see above Envie de Fraises Other 09-12-2022 Evaluation note* Encounter Date Diagnosis [...] weeks for the cough to go away [facility]vie [facility] Fraises Other 06-28-2022 Note [id number]06-28-2022 [id number] 08-26-2021 [facility] Clinical Discharge Summary PERSON INFORMATION Name IKE FLANNERY Age 50 Years 1970 Sex FEMALE Language Grenadian PCP RANDY CALLE Marital Status [facility] Service Ambulatory Surgery Acct# Arrival 08/26/2021 11:01:00 Visit Reason SURGERY- LEFT KNEE SCOPE Acuity LOS 003 04:51 Address: [address] [facility] [address] Comment: PROVIDER INFORMATION VITALS INFORMATION Vital Sign Triage Latest Temp Oral Temp Temporal Temp Intravascular Temp Axillary Temp Rectal 02 Sat 100 % 97 % Respiratory Rate Peripheral Pulse Rate Apical Heart Rate Blood Pressure / 90 mmHg / 103 mmHg Comment: MEDICAL INFORMATION Allergy Info: Adhesive Bandage; Demerol Prescriptions Given: acetaminophen-hydrocodone (!-Toano 5 mg-325 mg oral tablet) 1 tab(s) [...] Oral every day. potassium chloride (Potassium Chloride (Nok-Prwu-Ccd 10) 10 mEq oral tablet, extended release) 1 tab(s) Oral every day. traZODone (traZODone 50 mg oral tablet) 1 tab(s) Oral once a day (at bedtime). Medication List: Medications to Continue That Have Not Changed Other Medications acetaminophen-hydrocodone (!-Toano 5 mg-325 mg oral tablet) 1 tab(s) Oral Every 6 hours as needed as needed for pain. carvedilol (carvedilol 12.5 mg oral tablet) 1 tab(s) Oral 2 times a day. cyclobenzaprine (cyclobenzaprine 10 mg oral tablet) 1 tab(s) Oral At bedtime as needed for spasm. hydroCHLOROthiazide (hydroCHLOROthiazide 25 mg oral tablet) 1 tab(s) Oral every day. potassium chloride (Potassium Chloride (Mbz-Ivfq-Csj 10) 10 mEq oral tablet, extended release) 1 tab(s) Oral every day. traZODone (traZODone 50 mg oral tablet) 1 tab(s) Oral once a day (at bedtime). Medications to Continue That Have Not Changed Other Medications acetaminophen-hydrocodone (!-Toano 5 mg-325 mg oral tablet) 1 tab(s) Oral Every 6 hours as needed as needed for pain. carvedilol (carvedilol 12.5 mg oral tablet) 1 tab(s) Oral 2 times a day. cyclobenzaprine (cyclobenzaprine 10 mg oral tablet) 1 tab(s) Oral At bedtime as needed for spasm. hydroCHLOROthiazide (hydroCHLOROthiazide 25 mg oral tablet) 1 tab(s) Oral every day. potassium chloride (Potassium Chloride (Ony-Lohb-Zoa 10) 10 mEq oral tablet, extended release) 1 tab(s) Oral every day. traZODone (traZODone 50 mg oral tablet) 1 tab(s) Oral once a day (at bedtime). Medications to Continue That Have Not Changed Other Medications acetaminophen-hydrocodone (!-Toano 5 mg-325 mg oral tablet) 1 tab(s) Oral Every 6 hours as needed as needed for pain. carvedilol (carvedilol 12.5 mg oral tablet) 1 tab(s) Oral 2 times a day. cyclobenzaprine (cyclobenzaprine 10 mg oral tablet) 1 tab(s) Oral At bedtime as needed for spasm. hydroCHLOROthiazide (hydroCHLOROthiazide 25 mg oral tablet) 1 tab(s) Oral every day. potassium chloride (Potassium Chloride (Cer-Asms-Fos 10) 10 mEq oral tablet, extended release) [...] INFORMATION PATIENT EDUCATION INFORMATION Instructions: [facility] Follow up: DIAGNOSIS Internal derangement of left knee Comment: PHYS DOC [facility]06-16-2022 [facility] Clinical Discharge Summary PERSON INFORMATION Name IKE FLANNERY Age 50 Years 1970 Sex FEMALE Language Grenadian PCP RANDY CALLE Marital Status Med Service Ambulatory Surgery Acct# Arrival Visit Reason SURGERY - LEFT KNEE SCOPE Acuity LOS 010 03:19 Address: [address] [facility] [address] Comment: PROVIDER INFORMATION VITALS INFORMATION Vital Sign [...] Oral every day. potassium chloride (Potassium Chloride (Vfc-Zbjx-Gum 10) 10 mEq oral tablet, extended release) 1 tab(s) Oral every day. traZODone (traZODone 50 mg oral tablet) 1 tab(s) Oral once a day (at bedtime). Medication List: Medications That Were Updated - Follow Below Instructions Other Medications Updated: potassium chloride (Potassium Chloride (Gnk-Fobz-Arr 10) 10 mEq oral tablet, extended release) [...] Other Medications Updated: potassium chloride (Potassium Chloride (Las-Xyep-Nqs 10) 10 mEq oral tablet, extended release) [...] Other Medications Updated: potassium chloride (Potassium Chloride (Vrj-Zhik-Ldj 10) 10 mEq oral tablet, extended release) [...] Follow up: With: Address: When: MYESHA VINSON [address] [place], [place] [id number] Business (1) 09/03/2021 9:15 AM With: Address: When: [place] [address] [facility] (1) Type Location Start [facility] Lab Collection ([facility]) LAB 08/21/2021 4:00 PM 08/21/2021 4:10 PM Confirmed Surgery ([facility]) [facility] Main OR 08/26/2021 1:00 PM 08/26/2021 1:30 PM Confirmed DIAGNOSIS Comment: AGUSTIN ROQUE [facility]11-24-2021 Note [id number]11-23-2021 [id number] 01-21-2021 [facility] Clinical Discharge Summary PERSON INFORMATION Name IKE FLANNERY Age 50 Years 1970 Sex FEMALE Language Grenadian PCP RANDY CALLE Marital Status [facility] Service Ambulatory Surgery Acct# Arrival 01/21/2021 06:05:01 Visit Reason SURGERY - RIGHT KNEE ARTHROSCOPY Acuity LOS 032 23:00 Address: [address] [place] [id number] Comment: PROVIDER INFORMATION VITALS INFORMATION Vital Sign [...] Restrictions: DISCHARGE INFORMATION Discharge Disposition: Discharge Location: [facility] REASON INCOMPLETE INFORMATION PATIENT EDUCATION INFORMATION Instructions: Reny- Post Op K[facility]opy [facility] Follow up: With: Address: When: MYESHA ARELITARA [address] [place] [address], [address] [place] [address] Business (1) 01/30/2021 11:00 AM With: Address: When: [place] [address] Business (1) DIAGNOSIS Internal derangement of right knee; Tear of meniscus of right knee Comment: [facility]11-19-2021 NoteSpoke to pt on phone regarding upcoming procedure. pt aware to be here at 6am, NPO after midnight, and need for ride after procedure. pt verbalizes understanding. [Electronically Signed on: 01/18/2021 11:03 EST] Jen Khoury RN [Verified on: 01/18/2021 11:03 EST] Jen Khoury [facility]NK[facility] HospitalEvaluation + Plan note No data available for this section [facility] Evaluation + Plan note Future Appointments Appointment Date:04/10/2023 03:20:00 PM Scheduled Provider:Sandrita WILLETT MD Location:[facility] Appointment Type: Established [facility] noteNo assessment information available [facility] Work Phone: Evaluation note* Diagnosis Mammogram abnormal Abnormal mammogram, unspecified Invasive ductal carcinoma of breast, right (CMS/HCC) documented in this encounter [facility] HealthcareEvaluation note* Diagnosis Onset Date Resolution Status Breast cancer, right acute [facility] Work Phone: evaluation note* Diagnosis Onset Date Resolution Status Breast cancer, right acute Breast cancer, right acute [facility] Work Phone: Evaluation note* Diagnosis Onset Date Resolution Status Breast cancer, right acute Breast cancer, right acute Breast cancer, right acute [facility] Work Phone: evaluzeltb note* Diagnosis Retinal tear of right eye- Primary Vitreous hemorrhage of right eye (CMS/HCC) Vitreous hemorrhage documented in this encounter [facility] HealthcareEvaluation note* Diagnosis Adverse effect of doxycycline, initial encounter- Primary documented in this encounter [facility] HealthcareEvaluation note* Diagnosis Anaphylaxis, subsequent encounter- Primary documented in this encounter [facility] HealthcareEvaluation note* Diagnosis Encounter to discuss procedure documented in this encounter [facility] HealthcareEvaluation note* Diagnosis Pre-op examination H/O malignant neoplasm of breast documented in this encounter [facility] HealthcareEvaluation note* Diagnosis Encounter for postoperative care- Primary S/P breast reconstruction, bilateral Mycobacterium abscessus infection Breast wound, left, sequela documented in this encounter [facility] SystemEvaluation note* Diagnosis Sensorineural hearing loss (SNHL) of both ears- Primary documented in this encounter [facility] HealthcareEvaluation note* Diagnosis Encounter for postoperative care- Primary Seroma of breast S/P breast reconstruction, bilateral Mycobacterium abscessus infection Breast wound, left, sequela documented in this encounter [facility] SystemEvaluation note* Diagnosis Malignant neoplasm of lower-inner quadrant of right breast of female, estrogen receptor positive (CMS-HCC)- Primary Pelvic mass in female documented in this encounter [facility] SystemEvaluation note* Diagnosis Malignant neoplasm of lower-inner quadrant of right breast of female, estrogen receptor positive (CMS-HCC)- Primary documented in this encounter [facility] System[facility] note* Diagnosis Malignant neoplasm of lower-inner quadrant of right breast of female, estrogen receptor positive (CMS-HCC) documented in this encounter [facility] note* Diagnosis Malignant neoplasm of lower-inner quadrant of right breast of female, estrogen receptor positive (CMS-HCC)- Primary Mass of lower inner quadrant of right breast Malignant neoplasm of lower-inner quadrant of right breast of female, estrogen receptor positive (CMS-HCC) documented in this encounter [facility] note* Diagnosis 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 documented in this encounter [facility] System[facility] note* Diagnosis Encounter for postoperative care- Primary Malignant neoplasm of lower-inner quadrant of right breast of female, estrogen receptor positive (CMS-HCC) Acquired absence of breast, bilateral S/P breast reconstruction, bilateral documented in this encounter [facility] System[facility] note* Diagnosis 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 documented in this encounter [facility] note* Diagnosis MIRNA (acute kidney injury) [...] site after procedure documented in this encounter [facility] note* Diagnosis Encounter for postoperative care- Primary S/P breast reconstruction, bilateral Malignant neoplasm of lower-inner quadrant of right breast of female, estrogen receptor positive (CMS-HCC) Acquired absence of breast, bilateral documented in this encounter [facility] note* Diagnosis Encounter for postoperative care- Primary Acquired absence of breast, bilateral S/P breast reconstruction, bilateral Infection of breast implant, subsequent encounter documented in this encounter [facility] System[facility] note* Diagnosis Malignant neoplasm of lower-inner quadrant of right breast of female, estrogen receptor positive (CMS-HCC)- Primary documented in this encounter [facility] note* Diagnosis Encounter for postoperative care- Primary Malignant neoplasm of lower-inner quadrant of right breast of female, estrogen receptor positive (CMS-HCC) Acquired absence of breast, bilateral S/P breast reconstruction, bilateral documented in this encounter [facility] note* Diagnosis Encounter for postoperative care- Primary Acquired absence of breast, bilateral S/P breast reconstruction, bilateral documented in this encounter [facility] note* Diagnosis Encounter for postoperative care- Primary Acquired absence of breast, bilateral documented in this encounter [facility] System[facility] note* Diagnosis Infection of deep incisional surgical site after procedure, subsequent encounter- Primary Malignant neoplasm of lower-inner quadrant of right breast of female, estrogen receptor positive ([facility]-HCC) documented in this encounter [facility] note* Diagnosis Encounter for postoperative care- Primary Acquired absence of breast, bilateral S/P breast reconstruction, bilateral Infection of breast implant, subsequent encounter documented in this encounter [facility] note* Diagnosis Cellulitis of left breast- Primary S/P breast reconstruction, bilateral documented in this encounter [facility] System[facility] note* Diagnosis Encounter for postoperative care- Primary Seroma of breast S/P breast reconstruction, bilateral Breast wound, left, sequela documented in this encounter [facility] System[facility] note* Diagnosis Postoperative follow-up Follow-up examination, following unspecified surgery [facility] Diagnosis Mycobacterium abscessus infection- Primary S/P breast reconstruction, bilateral Malignant neoplasm of lower-inner quadrant of right breast of female, estrogen receptor positive ([facility]-H[facility]) [facility]* Diagnosis Postoperative visit- Primary Mycobacterium abscessus infection S/P breast reconstruction, bilateral Malignant neoplasm of lower-inner quadrant of right breast of female, estrogen receptor positive (CMS-HCC) documented in this encounter [facility]* Diagnosis Breast wound, left, sequela- Primary documented in this encounter [facility]* Diagnosis Encounter for postoperative care- Primary Breast wound, left, sequela Seroma of breast Mycobacterium abscessus infection S/P breast reconstruction, bilateral documented in this encounter [facility]* Diagnosis Well woman exam with routine gynecological exam Routine gynecological examination Breast cancer screening by mammogram Postmenopausal state Asymptomatic postmenopausal status (age-related) (natural) [facility] Diagnosis Malignant neoplasm of lower-inner quadrant of right breast of female, estrogen receptor positive (CMS-HCC)- Primary Pelvic mass in female documented in this encounter [facility]* Diagnosis Encounter for postoperative care- Primary Breast wound, left, sequela Erythema of breast Seroma of breast Mycobacterium abscessus infection S/P breast reconstruction, bilateral Acquired absence of breast, bilateral History of breast cancer Personal history of malignant neoplasm of breast documented in this encounter [facility]* Diagnosis Encounter for postoperative care- Primary Breast wound, left, sequela documented in this encounter [facility]* Diagnosis Encounter for postoperative care- Primary Seroma of breast S/P breast reconstruction, bilateral Breast wound, left, sequela documented in this encounter [facility]* Diagnosis Pelvic mass in female- Primary documented in this encounter [facility]* Diagnosis Encounter for postoperative care- Primary Seroma of breast Breast wound, left, sequela Mycobacterium abscessus infection S/P breast reconstruction, bilateral documented in this encounter [facility]* Diagnosis Encounter for postoperative care- Primary Seroma of breast Breast wound, left, sequela S/P breast reconstruction, bilateral documented in this encounter [facility]* Diagnosis Encounter for postoperative care- Primary Breast wound, left, sequela S/P breast reconstruction, bilateral Mycobacterium abscessus infection documented in this encounter [facility]* Diagnosis Malignant neoplasm of lower-inner quadrant of right breast of female, estrogen receptor positive (CMS-HCC)- Primary Mycobacterium abscessus infection Essential hypertension Unspecified essential hypertension Acute deep vein thrombosis (DVT) of calf muscle vein of left lower extremity (CMS-HCC) S/P right heart catheterization documented in this encounter [facility]* Diagnosis Pelvic mass in female- Primary documented in this encounter [facility]* Diagnosis Abscess- Primary Cellulitis and abscess of unspecified site 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 [facility] Diagnosis Mycobacterium abscessus infection- Primary Malignant neoplasm of lower-inner quadrant of right breast of female, estrogen receptor positive ([facility]-H[facility]) [facility] Diagnosis Breast wound, left, sequela- Primary Complicated wound infection [facility] Diagnosis Breast wound, left, sequela- Primary Complicated wound infection [facility] Diagnosis Breast wound, left, sequela- Primary Mycobacterium abscessus infection Complicated wound infection [facility] Diagnosis 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 [facility] Diagnosis Secondary malignant neoplasm of brain (HCC)- Primary Secondary malignant neoplasm of brain and spinal cord [facility] Diagnosis 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)- Primary [facility] Diagnosis 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 [facility] Diagnosis 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 [facility] Diagnosis Breast wound, left, sequela- Primary Infection of deep incisional surgical site after procedure, subsequent encounter Malignant neoplasm of lower-inner quadrant of right breast of female, estrogen receptor positive ([facility]-HCC) Mycobacterium abscessus infection S/P breast reconstruction, bilateral [facility] Diagnosis Breast cancer metastasized to liver, unspecified laterality (HCC)- Primary [facility] Diagnosis Breast cancer metastasized to liver, unspecified laterality (HCC)- Primary Encounter for medication monitoring Encounter for therapeutic drug monitoring [facility] Diagnosis Post-operative state- Primary Other postprocedural status S/P breast reconstruction Breast replaced by other means History of breast cancer Personal history of malignant neoplasm of breast [facility] Diagnosis Reactive depression- Primary Anxiety Anxiety state, unspecified [facility] Diagnosis Breast wound, left, sequela- Primary Infection of deep incisional surgical site after procedure, subsequent encounter [facility] Diagnosis 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 [facility] Diagnosis 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 [facility] Diagnosis 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)- Primary [facility] Diagnosis 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 She denies medication side effects. [facility] DO Work Phone: History of Present illness Narrative* AMEENA Kennedy - 07/06/2024 10:30 AM EDT Images from the original note were not included. [facility] [address] Office Jhon Gross MD, PhD AMEENA Kennedy Shereen Selin, PA-C Plastic Surgery Progress Note Reason for visit : post-op History of present illness: Ike Flannery is a 53 y.o. female with a history of right breastcancer status post bilateral skin sparing mastectomies (He) and tissue equine science instructor reconstruction in 10/28/2023. Her postoperative course was complicated by an infected seroma of her left breast requiring operative washout and tissue equine science instructor removal 11/27/23. Intraoperative cultures demonstrated growth of [...] liver lesion. She is awaiting consult at [facility] for IR guided biopsy as well as consult at the mycobacteriumclinic at [facility]. She presents our office today for [...] to ensure the accuracy of this automated mft, some errors in mft may have occurred. AMEENA Kennedy 07/06/24 0949 [facility] No data available for this section [facility] instructionsAmbulatory Orders* RISE Order Location: None [facility] Work Phone: InstructionsNot on filedocumented in [...] PM EDT Your surgery/procedure is scheduled at [facility] on 05/26/2024 at 1015 Arrival Time 0815 [facility] Address: [address] [place] [address] in [address] Parking lot located on [facility]. Report to the Entrance B. Check in at the information desk the surgery. The waiting room located on the second floor. If you have any questions prior to surgery, please call Pre-Admission Clinic at [phone] between 7:30 am and 4:30 pm Thursday through Thursday. If you have questions the morning of surgery, please call the Pre-op Department at [phone]. Notify your SURGEON if you develop any [...] piercings ,hair extensions that contain metal, nail fijian, make-up, and contact lens. You may brush [...] RIGHTS AND RESPONSIBILITIES As a patient at [facility], you have the right to: Receive medical care and be informed of who is taking care of you Be treated with dignity and respect Have a family member/u.s. representative of choice and your physician notified [...] of hospital charges and payment methods Patient/patient u.s. representative responsibilities are to: Provide information about [...] RIGHTS AND RESPONSIBILITIES As a patient at [facility], you have the right to: Receive medical care and be informed of who is taking care of you Be treated with dignity and respect Have a family member/u.s. representative of choice and your physician notified [...] of hospital charges and payment methods Patient/patient u.s. representative responsibilities are to: Provide information about [...] Health SystemInstructionsNot on filedocumented in this encounter [facility] filedocumented in this encounter [facility] on filedocumented in this encounter [facility] on filedocumented in this encounter [facility]Not on filedocumented in this encounter [facility]Not on filedocumented in this encounter [facility] SystemInstructionsNot on filedocumented in this encounter [facility] System[facility] Notes* Pre-Procedure Instructions - Hortencia Ludwig RN - 05/12/2024 2:45 PM EDT Your surgery/procedure is scheduled at [facility] on 05/26/2024 at 1015 Arrival Time 0815 [facility] Address: [address] [place] [address] in [address]1 Parking lot located on [facility]. Report to the Entrance B. Check in at the information desk the surgery. The waiting room located on the second floor. If you have any questions prior to surgery, please call Pre-Admission Clinic at [phone] between 7:30 am and 4:30 pm Thursday through Thursday. If you have questions the morning of surgery, please call the Pre-op Department at [phone]. Notify your SURGEON if you develop any [...] piercings ,hair extensions that contain metal, nail fijian, make-up, and contact lens. You may brush [...] RIGHTS AND RESPONSIBILITIES As a patient at [facility], you have the right to: Receive medical care and be informed of who is taking care of you Be treated with dignity and respect Have a family member/u.s. representative of choice and your physician notified [...] of hospital charges and payment methods Patient/patient u.s. representative responsibilities are to: Provide information about [...] RIGHTS AND RESPONSIBILITIES As a patient at [facility], you have the right to: Receive medical care and be informed of who is taking care of you Be treated with dignity and respect Have a family member/u.s. representative of choice and your physician notified [...] of hospital charges and payment methods Patient/patient u.s. representative responsibilities are to: Provide information about [...] you have any questions. [facility] No data available for this section [facility] Progress note Author Quincy Colbert [facility] December 29, 2023 11:28am Note Date/Time December 29, 2023 1 1:28am [facility] [place] [address] Cancer Center Note Signed Patient: Ike Flannery MR#: [id number] : 1970 Acct:[id number] Age/Sex: 53 / F Type: REG AMB [...] the right breast. ER negative (weakly positive) DC negative HER2 negative. She received neoadjuvant chemotherapy [...] 3. LVSI negative. ER 12 to 15% DC negative HER2 negative by IHC. 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 ER weakly positive DC negative HER2 negative. April 17, 2023 PET [...] 2023 patient's case was presented at the [facility] tumor board. Recommendations were for PET [...] bilateral skin sparing mastectomies with prepectoral tissue equine science instructor placement. Left breast shows diffuse fibrocystic change [...] cellulitis with an infected seroma. Left tissue equine science instructor removed. She has been on ertapenem and [...] recently saw her plastic surgeon and tissue equine science instructor on right has been filled. Intake Intake Visit Reasons: Follow Up Prior to CT-SIM Allergies meperidine Allergy (Unknown, Unverified 11/11/21 18:32) Unknown Reaction, anaphylaxis [facility] Medical History Medical History (Updated 09/30/23 @ [...] air Breast: Exam now shows left tissue equine science instructor surgically absent. Port has been accessed for IV antibiotics. Right tissue equine science instructor quite full exam shows skin to be tense with surgical incisions well-healed MSK: Demonstrates good range of motion of the right shoulder with external rotation. Results - [facility]tr (Rad Onc) LAB RESULTS No Data to Display Dictated By: Quincy Colbert MD DD/ 27 Signed By: <Electronically signed by Quincy Colbert MD> 12/29/23 1128 [facility] Work Phone: Reason for referral (narrative)* Consultation (Routine) - Pending Review Specialty Diagnoses / Procedures Referred By Contac t Referred To Contact Behavioral Health / Oncology Diagnoses Malignant neoplasm of lower-inner quadrant of right breast of female, estrogen receptor positive (CMS-HCC) Christy He MD [address] [facility] [address] [place] [address] Tfl Med Onc [address] [facility] [address] [place] [address] Referral ID Status Reason Start Date Expiration Date Visits Requested Visits Authorized [id number] Pending Review Specialty Services Required 07/30/2023 07/29/2024 1 1 * Consultation (Routine) - Pending Review Specialty Diagnoses / Procedures Referred By Contac t Referred To Contact Radiation Oncology Diagnoses Malignant neoplasm of lower-inner quadrant of right breast of female, estrogen receptor positive (CMS-HCC) Christy He MD [address] [place] [phone] Dany Diop MD [address] [place] [address] Referral ID Status Reason Start Date Expiration Date Visits Requested Visits Authorized [id number] Pending Review Specialty Services Required 07/30/2023 07/29/2024 1 1 * Diagnostic Imaging (Routine) - Pending Review Specialty Diagnoses / Procedures Referred By Contac t Referred To Contact Radiology Diagnoses Malignant neoplasm of lower-inner quadrant of right breast of female, estrogen receptor positive (CMS-HCC) Procedures MR bilateral breast with and without contrast with CAD Christy He MD [address] [place] [phone] Referral ID Status Reason Start Date Expiration Date V isits Requested Visits Authorized [id number] Pending Review 07/30/2023 07/29/2024 1 1 * Consultation (Routine) - Pending Review Specialty Diagnoses / Procedures Referred By Contact Referred To Contact Plastic & Reconstructive Surgery Diagnoses Malignant neoplasm of lower-inner quadrant of right breast of female, estrogen receptor positive (CMS-HCC) [place] [address] [place] [phone] [facility] [address] [place] [address] [address] [place] [address] Referral ID Status Reason Start Date Expiration Date Visits Requested Visits Authorized [id number] Pending Review Specialty Services Required 07/30/2023 07/29/2024 1 1 [facility] for referral (narrative)* Consultation (Routine) - Pending Review Specialty Diagnoses / Procedures Referred By Contac t Referred To Contact Radiation Oncology Diagnoses Malignant neoplasm of lower-inner quadrant of right breast of female, estrogen receptor positive (CMS-HCC) Christy He MD [address] [place] [phone] Dany Diop MD [address] [facility] [place] [address] Referral ID Status Reason Start Date Expiration Date Visits Requested Visits Authorized [id number] Pending Review Specialty Services Required 04/28/2023 04/27/2024 1 1 * Diagnostic Imaging (Emergency) - Pending Review Specialty Diagnoses / Procedures [facility] Referred To Contact Radiology Diagnoses Malignant neoplasm of lower-inner quadrant of right breast of female, estrogen receptor positive (CMS-HCC) Procedures MR bilateral breast with and without contrast with CAD Christy He MD [address] [place] [phone] Referral ID Status Reason Start Date Expiration Date V isits Requested Visits Authorized [id number] Pending Review 04/28/2023 04/27/2024 1 1 [facility] Consultation (Urgent) - Pending Review Specialty Diagnoses / Procedures Referred By Contac t Referred To Contact Infectious Disease Diagnoses Acid fast bacillus NildaGino momin APRN-CNP [address] [facility] [address] [address] Mathew Serrato, [address] [place] [address] Referral ID Status Reason Start Date Expiration Date Visits Requested Visits Authorized [id number] Pending Review Specialty Services Required 12/03/2023 12/02/2024 1 1 [facility] for [facility] (narrative)* Consultation (Urgent) - Pending Review Specialty Diagnoses / Procedures Referred By oJse t Referred To Contact Infectious Disease Diagnoses 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 Gino Flower APRN-CNP [address] [facility] [address] [address] Herman Lui, DO [address] [place] [address] Referral ID Status Reason Start Date Expiration Date Visits Requested Visits Authorized [id number] Pending Review Specialty Services Required 12/08/2023 12/07/2024 1 1 [facility] System[facility] for referral (narrative)No reason for referral [facility] Work Phone: Reason for visit Narrative* Auth/Cert (Routine) Specialty Diagnoses / Procedures Referred By Contgeorgia t Referred To Contact ADMITTING Diagnoses 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] Procedures STEREOTACTIC RADIOSURGERY 1 COMPLEX CRANIAL LES RADIATION DELIVERY STEREOTACTIC CRANIAL [place] STEREOTACTIC RADIOSURGERY 1 COMPLEX CRANIAL LESION RADIATION [place] STEREOTACTIC RADIOSURGERY (SRS) [place] CRANIAL LESION(S) 1 SESSION MULTI-SOURCE [place] Anesthesia [address] [address] Referral ID Status Reason Start Date Expiration Date Visits Re quested Visits Authorized [id number] 1 1 [facility] Summary Purpose Family History No [...] Full Code Order Discussed With: Patient and Kalin ogate Decision Maker Surrogate Decision Maker Name: Jean Carlos Becker Surrogate Decision Maker Relationship: Spouse Date Activated Date Inactivated Comments 08/26/2024 2:51 PM 09/01/2024 5:08 PM Question Answer Comments Full Code Order Discussed With: Patient and Surradha ogate Decision Maker Surrogate Decision Maker Name: [...] singler rn. * V.O per Dr. Shanon yTler MD / R Amir RN increase chlorthalidone [...] Contact Procedures Discharge Follow-Up Amy Singh MD [address], [facility] [address] [place] [address] Referral ID Status Reason Start Date Expiration Date V isits Requested Visits Authorized [id number] Pending Review 12/09/2023 12/08/2024 1 1 Referral ID Status Reason Start Date Expiration Date V isits Requested Visits Authorized [id number] Pending Review 12/09/2023 12/08/2024 1 1 Specialty Diagnoses / Procedures Referred By Contac t Referred To Contact Diagnoses Infection of deep incisional surgical site after procedure, initial encounter Infection of deep incisional surgical site after procedure, subsequent encounter Procedures Follow-up with primary care provider Amy Singh MD [address], [facility] [address] [place] [address] Referral ID Status Reason Start Date Expiration Date V isits Requested Visits Authorized [id number] Pending Review 12/09/2023 12/08/2024 1 1 Specialty Diagnoses / Procedures Referred By Contac t Referred To Contact Procedures Adult diet Amy Singh MD [address], [facility] [address] [place] [address] Referral ID Status Reason Start Date Expiration Date V isits Requested Visits Authorized [id number] Pending Review 12/09/2023 12/08/2024 1 1 Additional Source Comments INFORMATION SOURCE (unrecogn ized section and content) DATE CREATED AUTHOR 07/28/2021 [facility] dical Specialist DATE CREATED AUTHOR AUTHOR'S ORGANIZ ATION 09/22/2021 [facility] DATE CREATED AUTHOR AUTHOR'S ORGANIZ ATION 12/01/2021 [facility] DATE CREATED AUTHOR AUTHOR'S ORGANIZ ATION 01/04/2022 [facility] DATE CREATED AUTHOR AUTHOR'S ORGANIZ ATION 09/30/2022 [facility] DATE CREATED AUTHOR AUTHOR'S ORGANIZ ATION 10/01/2022 [facility] DATE CREATED AUTHOR AUTHOR'S ORGANIZ ATION 10/17/2022 [facility] DATE CREATED AUTHOR AUTHOR'S ORGANIZ ATION 03/03/2024 [facility] DATE CREATED AUTHOR AUTHOR'S ORGANIZ ATION 05/23/2024 [facility] DATE CREATED AUTHOR AUTHOR'S ORGANIZ ATION 05/27/2024 [facility] DATE CREATED AUTHOR AUTHOR'S ORGANIZ ATION 05/29/2024 [facility] DATE CREATED AUTHOR AUTHOR'S ORGANIZ ATION 05/30/2024 [facility] DATE CREATED AUTHOR AUTHOR'S ORGANIZ ATION 05/31/2024 [facility] DATE CREATED AUTHOR AUTHOR'S ORGANIZ ATION 06/04/2024 [facility] EPIC DATE CREATED AUTHOR AUTHOR'S ORGANIZ ATION 10/12/2024 [facility] DATE CREATED AUTHOR AUTHOR'S ORGANIZ ATION 10/15/2024 [facility] DATE CREATED AUTHOR AUTHOR'S ORGANIZ ATION 10/27/2024 [facility] DATE CREATED AUTHOR AUTHOR'S ORGANIZ ATION 10/28/2024 [facility] DATE CREATED AUTHOR AUTHOR'S ORGANIZ ATION 10/29/2024 [facility] DATE CREATED AUTHOR AUTHOR'S ORGANIZ ATION 10/30/2024 [facility] DATE CREATED AUTHOR AUTHOR'S ORGANIZ ATION 11/03/2024 [facility] REASON FOR VISIT (unrecogniz ed [...] LESION(S) 1 SESSION MULTI-SOURCE COBALT Anesthesia [address] [id number] Referral ID Status Reason Start Date Expiration Date Visits Re quested Visits Authorized [id number] 1 1 Reason Comments abnormal test results [...] right breast of female, estrogen receptor positive ([facility] Christy He MD [address] [facility], [facility] [address] [place] [address] [facility] [address] [place] [address] [address] [place] [address] Referral ID Status Reason Start Date Expiration Date Visits Requested Visits Authorized [id number] Pending Review Specialty Services Required 07/30/2023 07/29/2024 1 1 Reason Comments Med Refill Reason Comments Consult Newly dx Specialty Diagnoses / Procedures Referred By Contac t Referred To Contact Breast Surgery Diagnoses Mass of lower inner quadrant of right breast Richie Hanan, WEB DEVELOPMENT INSTRUCTOR-DIAL SCREW ASSEMBLER [address] [place] [address] Christy He MD [address] [facility], [facility] [address] [place] [address] Referral ID Status Reason Start Date Expiration Date V isits Requested Visits Authorized [id number] Pending Review 03/23/2023 03/22/2024 1 1 Reason [...] To Contact Diagnoses MIRNA (acute kidney injury) ([facility]) Nimo Meza MD [address] [place] [address] Referral ID Status Reason Start Date Expiration Date Visits Re quested Visits Authorized [id number] 1 1 Reason Onset Date Comments Transition [...] Reason Comments New Patient Evaluation Reason Comments Education Diagnostician - Other Reason Comments - July 29 debrievement of left breast tissue Reason Comments Recheck Reason Comments Procedure GKRS Specialty Diagnoses / Procedures Referred By Contac t Referred To Contact ADMITTING Diagnoses 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] Procedures STEREOTACTIC RADIOSURGERY 1 COMPLEX CRANIAL LES RADIATION DELIVERY STEREOTACTIC CRANIAL COBALT STEREOTACTIC RADIOSURGERY 1 COMPLEX CRANIAL LESION RADIATION TX STEREOTACTIC RADIOSURGERY (SRS) [place] CRANIAL LESION(S) 1 SESSION MULTI-SOURCE COBALT Anesthesia [address] [address] Referral ID Status Reason Start Date Expiration Date Visits Re quested Visits Authorized [id number] 1 1 Reason Comments Radiology MRI Reason [...] Inactive Member Role Status Dates Randy EsterDO magalys Primary Care Provider Active Start: October 01, [...] 2023 End: March 26, 2023 GUY Khan TUFT MACHINE OPERATOR-C Attending Provider Active Start: March 26, 2023 End: March 26, 2023 Supervisor Press Room Relationship Specialty Start Date End Date Randy Calle MD [address] [facility] [address] PCP - General Family Medicine 04/02/23 Supervisor Press Room Relationship Specialty Start Date End Date Randy Calle MD [address] [place] [address] PCP - General Family Medicine 04/02/23 Supervisor Press Room Relationship Specialty Start Date End Date Randy Calle MD [address] [place] [address] PCP - General Family Medicine 04/02/23 Supervisor Press Room Relationship Specialty Start Date End Date Randy Calle MD [address] [place] [address] PCP - General Family Medicine 04/02/23 Supervisor Press Room Relationship Specialty Start Date End Date Randy Calle MD [address] [place] [address] PCP - General Family Medicine 04/02/23 Supervisor Press Room Relationship Specialty Start Date End Date Randy Calle MD [address] [place] [address] PCP - General Family Medicine 04/02/23 Supervisor Press Room Relationship Specialty Start Date End Date Randy Calle MD [address] [place] [address] PCP - General Family Medicine 04/02/23 Supervisor Press Room Relationship Specialty Start Date End Date Randy Calle MD [address] [place] [address] PCP - General Family Medicine 04/02/23 Supervisor Press Room Relationship Specialty Start Date End Date Richie Hanna, WEB DEVELOPMENT INSTRUCTOR-DIAL SCREW ASSEMBLER [address] [place] [address] PCP - General 11/28/16 Supervisor Press Room Relationship Specialty Start Date End Date Richie Hanna William, WEB DEVELOPMENT INSTRUCTOR-[facility] [address] [place] [address] PCP - General 11/28/16 Supervisor Press Room Relationship Specialty Start Date End Date Richie Hanna WEB DEVELOPMENT INSTRUCTOR-DIAL SCREW ASSEMBLER [address] [place] [address] PCP - General 11/28/16 Supervisor Press Room Relationship Specialty Start Date End Date Randy Calle MD [address] [place] [address] PCP - General Family Medicine 04/02/23 Team Status: Active Member Role Status Dates Randy Calle DO Primary Care Provider Active Start: December 29, 2023 Quincy Colbert MD Attending [facility], Other Provider Active Start: December 29, [...] January 14, 2024 Quincy Colbert MD Attending [facility], Other Provider Active Start: January 14, [...] Provider Active St art: February 10, 2024 Supervisor Press Room Relationship Specialty Start Date End Date Jacques Richie Thomas WEB DEVELOPMENT INSTRUCTOR-DIAL SCREW ASSEMBLER [address] [place] [address] PCP - General 11/28/16 Supervisor Press Room Relationship Specialty Start Date End Date Richie Hanna WEB DEVELOPMENT INSTRUCTOR-DIAL SCREW ASSEMBLER [address] [place] [address] PCP - General 11/28/16 Supervisor Press Room Relationship Specialty Start Date End Date Richie Hanna WEB DEVELOPMENT INSTRUCTOR-DIAL SCREW ASSEMBLER [address] [place] [address] PCP - General 11/28/16 Supervisor Press Room Relationship Specialty Start Date End Date Richie Hanna WEB DEVELOPMENT INSTRUCTOR-DIAL SCREW ASSEMBLER [address] [place] [address] PCP - General 11/28/16 Supervisor Press Room Relationship Specialty Start Date End Date Richie Hanna WEB DEVELOPMENT INSTRUCTOR-DIAL SCREW ASSEMBLER [address] [place] [address] PCP - General 11/28/16 Supervisor Press Room Relationship Specialty Start Date End Date Richie Hanna WEB DEVELOPMENT INSTRUCTOR-DIAL SCREW ASSEMBLER [address] [place] [address] PCP - General 11/28/16 Supervisor Press Room Relationship Specialty Start Date End Date Richie Hanna WEB DEVELOPMENT INSTRUCTORDIAL SCREW ASSEMBLER [address] [place] [address] PCP - General 11/28/16 Supervisor Press Room Relationship Specialty Start Date End Date Richie Hanna, WEB DEVELOPMENT INSTRUCTORDIAL SCREW ASSEMBLER [address] [place] [address] PCP - General 11/28/16 Supervisor Press Room Relationship Specialty Start Date End Date Richie Hanna WEB DEVELOPMENT INSTRUCTOR-DIAL SCREW ASSEMBLER [address] [place] [address] PCP - General 11/28/16 Supervisor Press Room Relationship Specialty Start Date End Date Richie Hanna, WEB DEVELOPMENT INSTRUCTOR-DIAL SCREW ASSEMBLER [address] [place] [address] PCP - General 11/28/16 Supervisor Press Room Relationship Specialty Start Date End Date Richie Hanna, WEB DEVELOPMENT INSTRUCTORDIAL SCREW ASSEMBLER [address] [place] [address] PCP - General 11/28/16 Supervisor Press Room Relationship Specialty Start Date End Date Richie Hanna, WEB DEVELOPMENT INSTRUCTOR-DIAL SCREW ASSEMBLER [address] [place] [address] PCP - General 11/28/16 Supervisor Press Room Relationship Specialty Start Date End Date Richie Hanna, WEB DEVELOPMENT INSTRUCTOR-DIAL SCREW ASSEMBLER [address] [place] [address] PCP - General 11/28/16 Supervisor Press Room Relationship Specialty Start Date End Date Richie Hanna WEB DEVELOPMENT INSTRUCTOR-DIAL SCREW ASSEMBLER [address] [place] [address] PCP - General 11/28/16 Supervisor Press Room Relationship Specialty Start Date End Date Richie Hanna WEB DEVELOPMENT INSTRUCTOR-DIAL SCREW ASSEMBLER [address] [place] [address] PCP - General 11/28/16 Supervisor Press Room Relationship Specialty Start Date End Date Richie Hanna WEB DEVELOPMENT INSTRUCTOR-DIAL SCREW ASSEMBLER [address] [place] [address] PCP - General 11/28/16 Supervisor Press Room Relationship Specialty Start Date End Date Richie Hanna WEB DEVELOPMENT INSTRUCTOR-DIAL SCREW ASSEMBLER [address] [place] [address] PCP - General 11/28/16 Supervisor Press Room Relationship Specialty Start Date End Date Richie Hanna WEB DEVELOPMENT INSTRUCTOR-DIAL SCREW ASSEMBLER [address] [place] [address] PCP - General 11/28/16 Supervisor Press Room Relationship Specialty Start Date End Date Richie Hanna WEB DEVELOPMENT INSTRUCTOR-DIAL SCREW ASSEMBLER [address] [place] [address] PCP - General 11/28/16 Supervisor Press Room Relationship Specialty Start Date End Date Richie Hanna WEB DEVELOPMENT INSTRUCTOR-DIAL SCREW ASSEMBLER [address] [place] [address] PCP - General 11/28/16 Supervisor Press Room Relationship Specialty Start Date End Date Richie Hanna WEB DEVELOPMENT INSTRUCTOR-DIAL SCREW ASSEMBLER [address] [place] [address] PCP - General 11/28/16 Supervisor Press Room Relationship Specialty Start Date End Date Richie Hanna, WEB DEVELOPMENT INSTRUCTOR-DIAL SCREW ASSEMBLER [address] [place] [address] PCP - General 11/28/16 Supervisor Press Room Relationship Specialty Start Date End Date Richie Hanna, WEB DEVELOPMENT INSTRUCTOR-DIAL SCREW ASSEMBLER [address] [place] [address] PCP - General 11/28/16 Supervisor Press Room Relationship Specialty Start Date End Date Richie Hanna, WEB DEVELOPMENT INSTRUCTOR-DIAL SCREW ASSEMBLER [address] [place] [address] PCP - General 11/28/16 Supervisor Press Room Relationship Specialty Start Date End Date Randy Calle MD [address] [place] [address] PCP - General Family Medicine 04/02/23 Supervisor Press Room Relationship Specialty Start Date End Date Richie Hanna, WEB DEVELOPMENT INSTRUCTOR-DIAL SCREW ASSEMBLER [address] [place] [address] PCP - General 11/28/16 Supervisor Press Room Relationship Specialty Start Date End Date Randy Calle MD PCP - General Family Medicine 04/02/23 Supervisor Press Room Relationship Specialty Start Date End Date Randy Calle MD PCP - General Family Medicine 04/02/23 Supervisor Press Room Relationship Specialty Start Date End Date Randy Calle MD PCP - General Family Medicine 04/02/23 Team Status: Inactive Member Role Status Dates Randy aClle DO Primary Care Provider Active Start: May 19, 2024 End: May 19, 2024 Shereen Smallwood PA-C Attending Prov ider, Referring Provider Active Start: May 19, 2024 End: May 19, 2024 Supervisor Press Room Relationship Specialty Start Date End Date Richie Hanna WEB DEVELOPMENT INSTRUCTOR-DIAL SCREW ASSEMBLER [address] [place] [address] PCP - General 11/28/16 Supervisor Press Room Relationship Specialty Start Date End Date Richie Hanna WEB DEVELOPMENT INSTRUCTOR-DIAL SCREW ASSEMBLER [address] [place] [address] PCP - General 11/28/16 Supervisor Press Room Relationship Specialty Start Date End Date Richie Hanna WEB DEVELOPMENT INSTRUCTOR-DIAL SCREW ASSEMBLER [address] [place] [address] PCP - General 11/28/16 Supervisor Press Room Relationship Specialty Start Date End Date Kaye Manuel, DIAL SCREW ASSEMBLER [address] [place] [address] PCP - General Family Medicine 06/14/24 Gino Flower APRN [address] [facility] [address] [place] [address] 12/04/23 Aarti Hope MD [address] [place] [address] Referring Hematology/Oncology 06/14/24 Shereen Smallwood PA-C [address] [facility] [address] [facility] [place] [address] [facility] Referring Orthopedics 06/15/24 Supervisor Press Room Relationship Specialty Start Date End Date Jacques Richie Thomas WEB DEVELOPMENT INSTRUCTOR-[facility] [address] [place] [address] PCP - General 11/28/16 Supervisor Press Room Relationship Specialty Start Date End Date Richie Hanna WEB DEVELOPMENT INSTRUCTOR-[facility] [address] [place] [address] PCP - General 11/28/16 Supervisor Press Room Relationship Specialty Start Date End Date Richie Hanna WEB DEVELOPMENT INSTRUCTOR-[facility] [address] [place] [address] PCP - General 11/28/16 Supervisor Press Room Relationship Specialty Start Date End Date Richie Hanna WEB DEVELOPMENT INSTRUCTOR-[facility] [address] [place] [address] PCP - General 11/28/16 Supervisor Press Room Relationship Specialty Start Date End Date Richie Hanna WEB DEVELOPMENT INSTRUCTOR-[facility] [address] [place] [address] PCP - General 11/28/16 Supervisor Press Room Relationship Specialty Start Date End Date Kaye Manuel, DIAL SCREW ASSEMBLER [address] [place] [address] PCP - General Family Medicine 06/14/24 Gino Flower APRN [address] [facility] [address] [address] 12/04/23 Aarti Hope MD [address] [place] [address] Referring Hematology/Oncology 06/14/24 Shereen Smallwood PA-C [address] [facility] 280 [facility] [place] [address] [facility] Referring Orthopedics 06/15/24 Supervisor Press Room Relationship Specialty Start Date End Date Kaye Manuel, DIAL SCREW ASSEMBLER [address] [place] [address] PCP - General Family Medicine 06/14/24 Gino Flower APRN [address] [facility] [address] [address] 12/04/23 Aarti Hope MD [address] [place] [address] Referring Hematology/Oncology 06/14/24 Shereen Smallwood PA-C [address] [facility] [address] [facility] [place] [address] [facility] Referring Orthopedics 06/15/24 Supervisor Press Room Relationship Specialty Start Date End Date Kaye Manuel, DIAL SCREW ASSEMBLER [address] [place] [address] PCP - General Family Medicine 06/14/24 Gino Flower, ROBER [address] [facility] [address] [address] 12/04/23 Aarti Hope MD [address] [place] [address] Referring Hematology/Oncology 06/14/24 Shereen Smallwood PA-C [address] [place] [address] [facility] (Fax) Referring Orthopedics 06/15/24 Supervisor Press Room Relationship Specialty Start Date End Date Richie Hanna APRN-DIAL SCREW ASSEMBLER [address] [place] [address] PCP - General 11/28/16 Supervisor Press Room Relationship Specialty Start Date End Date Richie Hanna APRN-DIAL SCREW ASSEMBLER [address] [place] [address] PCP - General 11/28/16 Supervisor Press Room Relationship Specialty Start Date End Date Kaye Manuel, DIAL SCREW ASSEMBLER [address] [place] [address] PCP - General Family Medicine 06/14/24 Gino Flower APRN [address] [facility] [address] [address] 12/04/23 Aarti Hope MD [address] [place] [address] Referring Hematology/Oncology 06/14/24 Shereen Smallwood PA-C [address] [facility] [place] [address] [facility] Referring Orthopedics 06/15/24 [place] [address] [place] [address] Specialty Education Diagnostician Hematology/Oncology 07/31/24 Supervisor Press Room Relationship Specialty Start Date End Date Kaye Manuel CNP [address] [place] [address] PCP - General Family Medicine 06/14/24 Gino Flower APRN [address] [facility] [address] [place] [address] 12/04/23 Aarti Hope MD [address] [place] [facility] [place] [address] Referring Hematology/Oncology 06/14/24 Shereen Smallwood PA-C [address] [facility] [address] [place] [address] [facility] Referring Orthopedics 06/15/24 [place] [address] [place] [address] Specialty Education Diagnostician Hematology/Oncology 07/31/24 Supervisor Press Room Relationship Specialty Start Date End Date Kaye Manuel, DIAL SCREW ASSEMBLER [address] [place] [address] PCP - General Family Medicine 06/14/24 Gino Flower APRN [address] [facility] [address] [place] [address] 12/04/23 Aarti Hope MD [address] [place] [facility] [place] [address] Referring Hematology/Oncology 06/14/24 Shereen Smallwood PA-C [address] [place] [address] [facility] Referring Orthopedics 06/15/24 [place] [address] [place] [address] Specialty Education Diagnostician Hematology/Oncology 07/31/24 Supervisor Press Room Relationship Specialty Start Date End Date Kaye Manuel, DIAL SCREW ASSEMBLER [address] [place] [address] PCP - General Family Medicine 06/14/24 Gino Flower APRN [address] [facility] [address] [place] [address] 12/04/23 Aarti Hope MD [address] [place] [address] Referring Hematology/Oncology 06/14/24 Shereen Smallwood PA-C [address] [facility] [address] [place] [address] [facility] Referring Orthopedics 06/15/24 [place] [address] [place] [address] Specialty Education Diagnostician Hematology/Oncology 07/31/24 Supervisor Press Room Relationship Specialty Start Date End Date Kaye Manuel, DIAL SCREW ASSEMBLER [address] [place] [address] PCP - General Family Medicine 06/14/24 Gino Flower APRN [address] [facility] [address] [place] [address] 12/04/23 Aarti Hpoe MD [address] [place] [address] Referring Hematology/Oncology 06/14/24 Shereen Smallwood PA-C [address] [place] [address] [facility] Referring Orthopedics 06/15/24 [place] [address] [place] [address] Specialty Education Diagnostician Hematology/Oncology 07/31/24 Supervisor Press Room Relationship Specialty Start Date End Date Kaye Manuel, DIAL SCREW ASSEMBLER [address] [facility] [place] [address] PCP - General Family Medicine 06/14/24 Gino Flower APRN [address] [facility] [address] [place] [address] 12/04/23 Aarti Hope MD [address] [place] [facility] [place] [address] Referring Hematology/Oncology 06/14/24 Shereen Smallwood PA-C [address] [facility] [place] [address] [facility] Referring Orthopedics 06/15/24 [place] [address] [place] [address] Specialty Education Diagnostician Hematology/Oncology 07/31/24 Supervisor Press Room Relationship Specialty Start Date End Date Kaye Manuel, DIAL SCREW ASSEMBLER [address] [place] [address] PCP - General Family Medicine 06/14/24 Gino Flower APRN [address] [facility] [address] [place] [address] 12/04/23 Aarti Hope MD [address] [place] [facility] [place] [address] Referring Hematology/Oncology 06/14/24 Shereen Smallwood PA-C [address] [facility] [address] [place] [address] [facility] Referring Orthopedics 06/15/24 [place] [address] [place] [address] Specialty Education Diagnostician Hematology/Oncology 07/31/24 Supervisor Press Room Relationship Specialty Start Date End Date Richie Hanna APRN-DIAL SCREW ASSEMBLER [address] [place] [address] PCP - General 11/28/16 Supervisor Press Room Relationship Specialty Start Date End Date Kaye Manuel, DIAL SCREW ASSEMBLER [address] [place] [address] PCP - General Family Medicine 06/14/24 Gino Flower APRN [address] [facility] [address] [place] [address] 12/04/23 Aarti Hope MD [address] [place] [address] Referring Hematology/Oncology 06/14/24 Shereen Smallwood PA-C [address] [facility] [address] [place] [address] [facility] Referring Orthopedics 06/15/24 [place] [address] [place] [address] Specialty Education Diagnostician Hematology/Oncology 07/31/24 Supervisor Press Room Relationship Specialty Start Date End Date Kaye Manuel, DIAL SCREW ASSEMBLER [address] [place] [address] PCP - General Family Medicine 06/14/24 Gino Flower APRN [address] [facility] [address] [facility] [place] [address] 12/04/23 Aarti Hope MD [address] [place] [address] Referring Hematology/Oncology 06/14/24 Shereen Smallwood PA-C [address] [address] [facility] Referring Orthopedics 06/15/24 [place] [address] [place] [address] Specialty Education Diagnostician Hematology/Oncology 07/31/24 Supervisor Press Room Relationship Specialty Start Date End Date Kaye Manuel, DIAL SCREW ASSEMBLER [address] [place] [address] PCP - General Family Medicine 06/14/24 Gino Flower APRN [address] [facility] [address] [place] [address] 12/04/23 Aarti Hope MD [address] [place] [address] Referring Hematology/Oncology 06/14/24 Shereen Smallwood PA-C [address] [address] [facility] Referring Orthopedics 06/15/24 [place] [address] [place] [address] Specialty Education Diagnostician Hematology/Oncology 07/31/24 Supervisor Press Room Relationship Specialty Start Date End Date Richie Hanna APRN-DIAL SCREW ASSEMBLER [address] [place] [address] PCP - General 11/28/16 Supervisor Press Room Relationship Specialty Start Date End Date Kaye Manuel CNP [address] [place] [address] PCP - General Family Medicine 06/14/24 Gino Flower APRN [address] [facility] [address] [place] [address] 12/04/23 Aarti Hope MD [address] [place] [address] Referring Hematology/Oncology 06/14/24 Shereen Smallwood PA-C [address] [facility] [place] [address] [facility] Referring Orthopedics 06/15/24 [place] [address] [place] [address] Specialty Education Diagnostician Hematology/Oncology 07/31/24 Supervisor Press Room Relationship Specialty Start Date End Date Richie Hanna APRN-DIAL SCREW ASSEMBLER [address] [place] [address] PCP - General 11/28/16 Supervisor Press Room Relationship Specialty Start Date End Date Richie Hanna WEB DEVELOPMENT INSTRUCTOR-DIAL SCREW ASSEMBLER [address] [place] [address] PCP - General 11/28/16 Supervisor Press Room Relationship Specialty Start Date End Date Richie Hanna NP [address] [place] [address] PCP - General Family Medicine 09/27/24 Gino Flower APRN [address] [facility] [address] [place] [address] 12/04/23 Aarti Hope MD [address] [place] [address] Referring Hematology/Oncology 06/14/24 Shereen Smallwood PA-C [address] [facility] [address] [place] [address] [facility] Referring Orthopedics 06/15/24 [place] [address] [place] [address] Specialty Education Diagnostician Hematology/Oncology 07/31/24 Supervisor Press Room Relationship Specialty Start Date End Date Richie Hanna NP [address] [place] [address] PCP - General Family Medicine 09/27/24 Gino Flower APRN [address] [facility] [address] [place] [address] 12/04/23 Aarti Hope MD [address] [place] [address] Referring Hematology/Oncology 06/14/24 Shereen Smallwood PA-C [address] [address] [facility] Referring Orthopedics 06/15/24 [place] [address] [place] [address] Specialty Education Diagnostician Hematology/Oncology 07/31/24 Supervisor Press Room Relationship Specialty Start Date End Date Richie Hanna APRN-DIAL SCREW ASSEMBLER [address] [place] [address] PCP - General 11/28/16 Supervisor Press Room Relationship Specialty Start Date End Date Richie Hanna NP [address] [place] [address] PCP - General Family Medicine 09/27/24 Gino Flower APRN [address] [facility] [address] [address] 12/04/23 Aarti Hope MD [address] [place] [address] Referring Hematology/Oncology 06/14/24 Shereen Smallwood PA-C [address] [place] [address] [facility] Referring Orthopedics 06/15/24 [place] [address] [place] [address] Specialty Education Diagnostician Hematology/Oncology 07/31/24 Supervisor Press Room Relationship Specialty Start Date End Date Richie Hanna APRN-DIAL SCREW ASSEMBLER [address] [place] [address] PCP - General 11/28/16 Goals (unrecognized section [...] RN)2139 (Given - Provider: Aliza Benito RN) 0927 (Given - Provider: Claudia Masterson LPN)2055 (Given [...] Thu12/03/23 at 1200, Indication: Nontuberculous mycobacterial infection (telecom manager drug) 0743 (Given - Provider: Corrina Richardson RN)2138 (Given - Provider: Aliza Benito RN) 927 (Given - Provider: Claudia Masterson LPN)2054 (Given - Provider: Aliza Benito RN) 0918 (Given - Provider: Kahlil Gregorio RN) cyanocobalamin tablet 1,000 mcg 1,000 mcg, oral, Daily, First dose on Thu12/06/23 at 0900 0742 (Given - Provider: Corrina Richardson RN) 0928 (Given - Provider: Claudia Masterson LPN) 0917 [...] itching 1145 (Self-administered - Provider: Claudia Masterson LPN)205 (Given - Provider: Aliza Benito RN) 0900 [...] is REQUIRED to use this drug at [facility], [facility] and [facility] per [facility]-approved policy # MM 1.15: Yes 1004 (New [...] over 15 Minutes, Daily, First dose on Thu12/05/23 at 1000, For 3 doses, Monitor patient [...] 2100 0741 (Given - Provider: Corrina Richardson RN)2138 (Given [...] 0917 (Given - Provider: Kahlil Gregorio, OC) potassium [...] is REQUIRED to use this drug at [facility], [facility] and [facility] per [facility]-approved policy # MM 1.15: Yes, Specify: consult [...] Masterson LPN)0345 (Paused - Provider: Claudia Masterson LPN)0345 [...] \phsi.[facility].org\epi c\EPIC_Reference\Orders\ Respiratory Care Guidelines\CPG Bronchodilator 2020.pdf zkqrrzj-fykhnhuhpbuhd-xr ffeine (EXCEDRIN MIGRAINE) 250-250-65 mg per tablet 2 tablet 2 tablet, oral, Every 6 hours PRN, headaches, Starting on Thu12/03/23 at 1225 0927 (Given - Provider: Claudia Masterson LPN) calcium gluconate 3,000 mg in sodium chloride 0.9 % 100 mL IVPB 3,000 mg, intravenous, at 43.3 mL/hr, Administer over 3 Hours, As needed, ionized calcium 3.5 to 3.9 mg/dL, Starting on Thu12/03/23 at 1405, IV [...] 0617 (See Alternative - Provider: Aliza Benito RN)1620 (Given - Provider: Claudia Masterson LPN) potassium [...] RN) 0617 (Given - Provider: Aliza Benito RN)1720 (See Alternative - Provider: Claudia Masterson LPN) [...] is REQUIRED to use this drug at [facility], [facility] and [facility] per [facility]-approved policy # MM 1.15: Yes, Specify: 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 Followed by tigecycline (TYGACIL) 50 mg in sodium chloride 0.9 % 50 mL IVPB (CANCELED)Jump to med 50 mg, intravenous, at 110 mL/hr, Administer over 30 Minutes, Every 12 hours, First dose on [place] 12/06/23 at 0630, Pathogen: MDR infection with confirmed susceptibility, Approved Indication: Other, Authorizing Service: ID consult has been placed, I acknowledge that an appropriate consult is REQUIRED to use this drug at [facility], [facility] and [facility] per [facility]-approved policy # MM 1.15: Yes, Specify: consult [...] prosecute any alcohol or drug abuse patient.[facility] CenterIn the event this information is protected by the Federal Confidentiality of Alcohol and Drug Abuse Patient Records regulations: The Federal rules restrict any use of the information to criminally investigate or prosecute any alcohol or drug abuse patient.[facility] CenterIn the event this information is protected by the Federal Confidentiality of Alcohol and Drug Abuse Patient Records regulations: The Federal rules restrict any use of the information to criminally investigate or prosecute any alcohol or drug abuse patient.[facility] CenterIn the event this information is protected by the Federal Confidentiality of Alcohol and Drug Abuse Patient Records regulations: The Federal rules restrict any use of the information to criminally investigate or prosecute any alcohol or drug abuse patient.[facility] CenterIn the event this information is protected by the Federal Confidentiality of Alcohol and Drug Abuse Patient Records regulations: The Federal rules restrict any use of the information to criminally investigate or prosecute any alcohol or drug abuse patient.[facility] CenterIn the event this information is protected by the Federal Confidentiality of Alcohol and Drug Abuse Patient Records regulations: The Federal rules restrict any use of the information to criminally investigate or prosecute any alcohol or drug abuse patient.[facility] CenterIn the event this information is protected by the Federal Confidentiality of Alcohol and Drug Abuse Patient Records regulations: The Federal rules restrict any use of the information to criminally investigate or prosecute any alcohol or drug abuse patient.[facility] CenterIn the event this information is protected by the Federal Confidentiality of Alcohol and Drug Abuse Patient Records regulations: The Federal rules restrict any use of the information to criminally investigate or prosecute any alcohol or drug abuse patient.[facility] CenterIn the event this information is protected by the Federal Confidentiality of Alcohol and Drug Abuse Patient Records regulations: The Federal rules restrict any use of the information to criminally investigate or prosecute any alcohol or drug abuse patient.[facility] CenterIn the event this information is protected by the Federal Confidentiality of Alcohol and Drug Abuse Patient Records regulations: The Federal rules restrict any use of the information to criminally investigate or prosecute any alcohol or drug abuse patient.[facility] CenterIn the event this information is protected by the Federal Confidentiality of Alcohol and Drug Abuse Patient Records regulations: The Federal rules restrict any use of the information to criminally investigate or prosecute any alcohol or drug abuse patient.[facility] CenterIn the event this information is protected by the Federal Confidentiality of Alcohol and Drug Abuse Patient Records regulations: The Federal rules restrict any use of the information to criminally investigate or prosecute any alcohol or drug abuse patient.[facility] CenterIn the event this information is protected by the Federal Confidentiality of Alcohol and Drug Abuse Patient Records regulations: The Federal rules restrict any use of the information to criminally investigate or prosecute any alcohol or drug abuse patient.[facility] CenterIn the event this information is protected by the Federal Confidentiality of Alcohol and Drug Abuse Patient Records regulations: The Federal rules restrict any use of the information to criminally investigate or prosecute any alcohol or drug abuse patient.[facility] CenterIn the event this information is protected by the Federal Confidentiality of Alcohol and Drug Abuse Patient Records regulations: The Federal rules restrict any use of the information to criminally investigate or prosecute any alcohol or drug abuse patient.[facility] CenterIn the event this information is protected by the Federal Confidentiality of Alcohol and Drug Abuse Patient Records regulations: The Federal rules restrict any use of the information to criminally investigate or prosecute any alcohol or drug abuse patient.[facility] CenterIn the event this information is protected by the Federal Confidentiality of Alcohol and Drug Abuse Patient Records regulations: The Federal rules restrict any use of the information to criminally investigate or prosecute any alcohol or drug abuse patient.[facility] CenterIn the event this information is protected by the Federal Confidentiality of Alcohol and Drug Abuse Patient Records regulations: The Federal rules restrict any use of the information to criminally investigate or prosecute any alcohol or drug abuse patient.[facility] CenterIn the event this information is protected by the Federal Confidentiality of Alcohol and Drug Abuse Patient Records regulations: The Federal rules restrict any use of the information to criminally investigate or prosecute any alcohol or drug abuse patient.[facility] CenterIn the event this information is protected by the Federal Confidentiality of Alcohol and Drug Abuse Patient Records regulations: The Federal rules restrict any use of the information to criminally investigate or prosecute any alcohol or drug abuse patient.[facility] CenterIn the event this information is protected by the Federal Confidentiality of Alcohol and Drug Abuse Patient Records regulations: The Federal rules restrict any use of the information to criminally investigate or prosecute any alcohol or drug abuse patient.[facility] CenterIn the event this information is protected by the Federal Confidentiality of Alcohol and Drug Abuse Patient Records regulations: The Federal rules restrict any use of the information to criminally investigate or prosecute any alcohol or drug abuse patient.[facility] FOR RECORDS PERTAINING TO PATIENTS WHO ARE [...] BE BASED ON THE PRIMARY CLINICAL RECORDS. [facility]. provides no warranty or guarantee of the accuracy or completeness of information in this document.
== END 2024-11-04 10:19 | disposition home or self-care (01) ==
LOC: US 10:18
PROVIDERS: PCP Nurse Practitioner Family; Visit Provider Internal Medicine Hematology & Oncology
DX: C50.311 Malignant neoplasm of lower-inner quadrant of right female breast (principal); Z79.899 Other long term (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 therapy; D70.1 Agranulocytosis secondary to cancer chemotherapy; R11.2 Nausea with vomiting, unspecified; C77.9 Secondary and unspecified malignant neoplasm of lymph node, unspecified; Z15.09 Genetic susceptibility to other malignant neoplasm; Z79.818 Long term (current) use of other agents affecting estrogen receptors and estrogen levels; D64.81 Anemia due to antineoplastic chemotherapy; C77.3 Secondary and unspecified malignant neoplasm of axilla and upper limb lymph nodes; Z17.1 Estrogen receptor negative status [ER-]; Z17.22 Progesterone receptor negative status
CPT/HCPCS: 76775; 81003; 87086

== ENCOUNTER 2024-11-28 12:58 | Outpatient (RCR) | payer OTHER, SELFPAY ==
--- OUTSIDE RECORDS SUMMARY | 2024-09-07 16:30 | XMS_ITS | Encounter Summary ---
Author Organization [facility] Address [facility] [place] [address] Care Team Providers Care Wastewater Supervisor Name Role Phone Carolina Munguia APRN Unavailable [phone] Jessica Hope MD Unavailable [phone] Lynda Manuel CNP Primary Care Provider [phone] Shereen Smallwood PA-C Unavailable [phone] Radha Martinez RN Unavailable Source Comments In the event this information is protected by the Federal Confidentiality of Alcohol and Drug AbusePatient Records regulations: The Federal rules restrict any use of the information to criminally investigate or prosecute any alcohol or drug abuse patient.[facility] Reason for Visit * Auth/Cert (Routine) Specialty Diagnoses / Procedures Referred By Contac t Referred To Contact ADMITTING Diagnoses 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] Procedures STEREOTACTIC RADIOSURGERY 1 COMPLEX CRANIAL LES RADIATION DELIVERY STEREOTACTIC CRANIAL COBALT STEREOTACTIC RADIOSURGERY 1 COMPLEX CRANIAL LESION RADIATION TX STEREOTACTIC RADIOSURGERY (SRS) [place] CRANIAL LESION(S) 1 SESSION MULTI-SOURCE COBALT Anesthesia [address] [id number] Referral ID Status Reason Start Date Expiration Date Visits Re quested Visits Authorized [id number] 1 1 Encounter Details Date Type Department Care Team (Latest Contact Info) Description 09/07/2024 4:30 PM EDT Hospital Encounter Anesthesia [address] [place] [address] Carlos Mccain DO, PhD [address] [place] [address] 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] Social History Tobacco Use Types Packs/Day Years Used Date Smoking Tobacco: Never Passive Smoke Exposure: Never Smokeless Tobacco: Never Alcohol Use Standard Drinks/Week Comments Not Currently 0 (1 standard drink = 0.6 oz pur e alcohol) Occasional wine [facility] Utilities Answer Date Recorded In the past 12 months has th e electric, gas, oil, or water company threatened to shut off services in your home? No 08/29/2024 PHQ-2 Answer Date Recorded PHQ-2 score 0 09/05/2024 Hunger Vital Sign Answer Date Recorded Within the past 12 months, y ou worried that your food would run out before you got the money to buy more. Never true 08/30/19 25 Within the past 12 months, t he food you bought just didn't last and you didn't have money to get more. Never true 08/29/2024 PRAPARE - Transportation Answer Date Re corded In the past 12 months, has l ack of transportation kept you from medical appointments or from getting medications? No 08/02 In the past 12 months, has l ack of transportation kept you from meetings, work, or from getting things needed for daily living? No 08/29/2024 Housing Stability Vital Sign Answer Krishna e Recorded In the last 12 months, was t here a time when you were not able to pay the mortgage or rent on time? No 08/29/2024 In the past 12 months, how m any times have you moved where you were living? 0 08/29/2024 At any time in the past 12 m [facility], were you homeless or living in a retirement (including now)? No 08/29/2024 Area Deprivation Index Answer Date Milton rded National Score (1-100), lower number is lower ri sk 82 07/21/2024 State Score (1-10), lower number is lower risk 7 07/21/2024 Data from: https://www.neighborhoodatlas.medicine.[facility].edu/. Last address used for calculation [address] 07/21/2024 Comments Unknown Sex and Gender Information Value Date Recorded Sex Assigned at Not on file Legal Sex Female 3:51 PM EDT Gender Identity Not on file Sexual Orientation Not on file documented as of this encounter Plan of Treatment Upcoming Encounters Date Type Department Care Team (Latest Contact Info) Description 11/29/2024 10:20 AM EDT Appointment [facility] Radiology MRI [address] [place] [address] With Perfusion 12/01/2024 2:00 PM EDT [facility] Brain Tumor [place] [address] [place] [address] Carlos Mccain DO, PhD [address] [facility] [address] [place] [address] Established patient Visit with Dr. Mccain for MRI review and follow up documented as of this encounter Visit Diagnoses Not on filedocumented in this encounter Care Teams Wastewater Supervisor Relationship Specialty Start Date End Date Lynda Manuel CNP [address] [facility] [place] [address] PCP - General Family Medicine 06/14/24 09/26/24 Carolina Munguia APRN [address] [facility] [address] [place] [address] 12/04/23 Jessica Hope MD [address] [place] [address] Referring Hematology/Oncology 06/14/24 Shereen Smallwood PA-C [address] [facility] [address] [place] [address] [facility] Referring Orthopedics 06/15/24 [place] [address] [place] [address] Specialty Mechanical Test Technician Hematology/Oncology 07/31/24 documented as of this encounter
--- OUTSIDE RECORDS SUMMARY | 2024-10-07 17:00 | XMS_ITS | Encounter Summary ---
Author Organization [facility] Address [facility] [place] [address] Care Team Providers Care Crystal Syrup Maker Name Role Phone Carolina Munguia APRN Unavailable [phone] Jessica Hope MD Unavailable [phone] Shereen Smallwood PA-C Unavailable [phone] Radha Martinez RN Unavailable Amy Collier NP Primary Care Provider [phone] Source Comments In the event this information is protected by the Federal Confidentiality of Alcohol and Drug AbusePatient Records regulations: The Federal rules restrict any use of the information to criminally investigate or prosecute any alcohol or drug abuse patient.[facility] Reason for Visit * Auth/Cert (Routine) [...] LESION(S) 1 SESSION MULTI-SOURCE COBALT Anesthesia [address] [place] [address] Referral ID Status Reason Start Date Expiration Date Visits Re quested Visits Authorized [id number] 1 1 Encounter Details Date Type Department Care Team (Latest Contact Info) Description 10/07/2024 5:00 PM EDT Hospital Encounter Anesthesia [address] [place] [address] Carlos Mccain DO, PhD [address] [place] [address] 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] Social History Tobacco Use Types Packs/Day Years Used Date Smoking Tobacco: Never Passive Smoke Exposure: Never Smokeless Tobacco: Never Alcohol Use Standard Drinks/Week Comments Not Currently 0 (1 standard drink = 0.6 oz pur e alcohol) Occasional wine [facility] Utilities Answer Date Recorded In the [...] any time in the past 12 m [facility], were you homeless or living in a residential (including now)? No 08/29/2024 Area Deprivation Index Answer Date Milton rded National Score (1-100), lower number is lower ri 82 07/21/2024 State Score (1-10), lower number is lower risk 7 07/21/2024 Data from: https://www.neighborhoodatlas.medicine.[facility].edu/. Last address used for calculation [address] [...] Info) Description 11/29/2024 10:20 AM EDT Appointment [facility] Radiology MRI [address] [address] With Perfusion 12/01/2024 2:00 PM EDT [facility] [address] [place] [address] Carlos Mccain DO, PhD [address] [facility] [address] [place] [address] Established patient Visit with Dr. Mccain for MRI review and follow up documented as of this encounter Visit Diagnoses Not on filedocumented in this encounter Care Teams Crystal Syrup Maker Relationship Specialty Start Date End Date Amy Collier NP [address] [place] [address] PCP - General Family Medicine 09/27/24 Carolina Munguia APRN [address] [facility] [address] [address] 12/04/23 Jessica Hope MD [address] [place] [address] Referring Hematology/Oncology 06/14/24 Shereen Smallwood PA-C [address] [facility] [address] [place] [address] [facility] Referring Orthopedics 06/15/24 [place] [address] [place] [address] Specialty Welt Drawer Hematology/Oncology 07/31/24 documented as of this encounter
--- OUTSIDE RECORDS SUMMARY | 2024-10-26 08:30 | XMS_ITS | Encounter Summary ---
Author Organization [facility] [facility] tem Address [id number] [address] [place] [address] Care Team Providers Care It Project Manager Name Role Phone Amy Collier OPTOELECTRONIC TECHNICIAN-BLOW MOLDING MACHINE TENDER Primary Care Provider + Encounter Details Date Type Department Care Team (Latest Contact Info) Description 10/26/2024 8:30 AM EDT Telephone Visit [facility] Gynecology Oncology, A Department of [address] [place] [address] Raymond Sepulveda MD [address] [place] [address], [address] [place] [address] 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 No 07/27/2024 Social Connection and Isolat ion Panel [NHANES] Answer Date Recorded In a typical week, how many times do you talk on the phone with family, friends, or neighbors? Twice a week 02/27/2022 How often do you get togethe r with friends or relatives? Three times a week 02/27/2022 How often do you attend [facility] or adventism services? More than 4 times [...] Answer Date Recorded Total Score 0 08/10/2024 [facility] of Occupat ional Health - Occupational Stress [...] got money to buy more. Never True 10/11/2024 Within the past 12 months th e food we bought just didn't last and we didn't have money to get more. Never True 10/11/2024 Purpose - Life Answer Date Recorded I [...] on file Sexual Orientation Not on file Travel History Travel Start Travel End [place] 09/13/2024 10/26/2024 documented as of this encounter Progress Notes * Raymond Sepulveda MD - 10/26/2024 8:30 AM EDT This nice patient unfortunately was diagnosed with recurrent and progressive breast cancer, she is now transition to 3rd line treatment. Reviewing her PET-CT reveals increase of all of her metastaticlesions including the lesion in the pelvis. We discussed 2 courses of action, 1 would be to repeat imaging in a few months after she has made the transition to her 3rd line treatment and ensure that this lesion in the pelvis is responding. The other choice would be to obtain an IR guided biopsy to confirm the diagnosis. At this time she is not interested in undergoing another procedure and would like to defer biopsy until after the next set of scans. I will communicate this back with her medical oncologist. 21 minutes was spent in communication with the patient, coordinating care and documented in the medical record. documented in this encounter Plan of Treatment Upcoming Encounters Date Type Department Care Team (Late st Contact Info) Description 11/16/2024 1:30 PM EDT Office Visit [facility] [address] [place] [address] Marisela Davila, OPTOELECTRONIC TECHNICIAN-BLOW MOLDING MACHINE TENDER [address], [facility] [address] [facility] [place] [address] documented as of this encounter Goals Goal Patient Goal Type Associated Problems Recent Progress Patient-Stated? 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)- Primary Malignant neoplasm of lower-inner quadrant of right breast of female, estrogen receptor positive (CMS-HCC) documented in this encounter Additional Health Concerns Infection Onset Date Last Indicated Resolved Time ULTRASOUND MANAGER Comment:LT CHEST WALL TISSUE(08/12/24) 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
--- OUTSIDE RECORDS SUMMARY | 2024-10-26 13:30 | XMS_ITS | Encounter Summary ---
Author Organization [facility] tem Address [id number] [address] [place] [address] Care Team Providers Care Tag And Label Cutter Name Role Phone Amy Collier MANAGER ADVERTISING-ENTRY LEVEL BUSINESS ANALYST Primary Care Provider + Reason for Visit * Reason Comments Post-op Encounter Details Date Type Department Care Team (Latest Contact Info) Description 10/26/2024 1:30 PM EDT Office Visit [facility] [address] [place] [address] Marisela Davila, [facility] [address], [address] [place] [address] Breast wound, left, sequela (Primary Dx); Encounter for postoperative care; Complicated wound infection Social History Tobacco Use Types Packs/Day Years Used Date Smoking Tobacco: Never Passive Smoke Exposure: Past Smokeless Tobacco: Never Tobacco Cessation:Counseling Given: Not Answered Alcohol Use Standard Drinks/Week Comments Not Currently 0 (1 standard drink = 0.6 oz pur e alcohol) [facility] Utilities Answer Date Recorded In the past 12 months has [employer], gas, oil, or water [employer] threatened to shut off services in your [...] How often do you attend [facility] or buddhism services? More than 4 times [...] Answer Date Recorded Total Score 0 08/10/2024 [facility] [place] of Occupat ional Health - Occupational Stress [...] file Travel History Travel Start Travel End [place] 09/13/2024 10/26/2024 documented as of this encounter Last Filed Vital Signs Vital Sign Reading Time Taken Comments Blood Pressure 134/81 10/26/2024 1:53 PM EDT Pulse 80 10/26/2024 1:53 PM EDT Temperature 36.4 C (97.5 F) 10/26/2024 1:53 PM EDT Respiratory Rate 16 10/26/2024 1:53 PM EDT Oxygen Saturation - - Inhaled Oxygen Concentration - - Weight - - Height 180.3 cm (5' 11 ) 10/26/2024 1:53 PM EDT Body Mass Index - - documented in this encounter Progress Notes * AMEENA Kennedy - 10/26/2024 1:30 PM EDT [facility] [address] Office Jhon Rosado MD, PhD INÉS King PA-C Erin A Schroeder, APRN-CNP Plastic Surgery Progress Note Reason for visit : post-op History of present illness: Yasmin Flannery is a 54 y.o. female with a history of ight breast cancer status post bilateral skin sparing mastectomies (He) and tissue backend developer reconstruction in10/28/2023. Her postoperative course was complicated by an infected seroma of her left breast requiring operative washout and tissue backend developer removal 11/27/23. 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 At her last office appt it was noted that patient had developed new wounds to her left breast. She then underwent debridement of her left breast on 10/12/24. The patient is doing well postoperatively. The patient denies fever, chills, redness or drainage from surgical wound(s). Review of Systems: Denies surgical site concerns. All other symptoms negative except as noted in HPI. Physical Examination: Vitals: 10/26/24 1353 BP: 134/81 Pulse: 80 Resp: 16 Temp: 36.4 ??C (97.5 ??F) Body mass index is 27.55 kg/m??. GENERAL: no acute distress, well developed, well nourished. LYMPHATIC: no upper extremity lymphedema NEUROLOGIC: alert and oriented to time, place and person. PSYCH: judgement and insight good, mood/affect full range. Focused examination : Left breast wound remains present. Two areas of tunneling noted. Medial area of tunneling is a proximally 1.5 cm deep. Lateral area of tunneling is now superficial. No purulent drainage. Impression: 1. Breast wound, left, sequela 2. Encounter for postoperative care 3. Complicated wound infection Recommendations: Discussed with patient continuing with wet-to-dry dressing changes to the area. Weyesenia continue this until the wounds becomes superficial. It is okay to quickly shower and wash the surgical site. Continue to monitor for any signs of systemic infection. She is currently on IV antibiotics per infectious disease recommendations until the end of the year. She is also receiving IV chemotherapy. Follow up in 3 weeks for a wound check. Advised to call the office any questions or concerns in the interim. - AMEENA Rand 10/26/24 2:48 PM Please note that portions of this note were generated using voice recognition [employer] dictation software. Although every effort was made to ensure the accuracy of this automated miner helper, some errors in miner helper may have occurred. AMEENA Kennedy 10/26/24 1448 documented in this encounter Plan of Treatment Upcoming Encounters Date Type Department Care Team (Late st Contact Info) Description 11/16/2024 1:30 PM EDT Office Visit [facility] [address] [facility] [address] [place] [address] Marisela Davila APRN-CNP [address], [facility] [address] [place] [address] documented as of this encounter Goals Goal Patient Goal Type Associated Problems Recent Progress Patient-Stated? 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
--- OUTSIDE RECORDS SUMMARY | 2024-10-27 11:49 | XMS_ITS | Continuity of Care Document ---
Author Organization [facility] Address [address] [place] [address] Phone Care Team Providers Care Manager Investment Banking Name Role Phone Aly Randy GALLEGOS Primary Care Provider Shereen Smallwood PA-C Attending Provider [phone] Quincy Colbert MD Attending Provider Care Teams Patient Care Team Team Status: Active Member Role Status Dates Randy Lu DO Primary Care Provider Active Visit Care Team Team Status: Active Member Role Status Dates Randy Lu DO Primary Care Provider Active Start: August 24, 2024 Shereen Smallwood PA-C Attending Provider Active Start: August 24, 2024 Patient Care Team Team Status: Inactive Member Role Status Dates Randy Lu DO Primary Care Provider Active Start: October 27, 2024 End: October 27, 2024 Quincy Colbert MD Attending Provider Active Start: October 27, 2024 End: October 27, 2024 Jessica Hope MD Referring Provider Active St art: October 27, 2024 Chief Complaint and Reason for Visit Chief Complaint Admit Date Wound care August 24, 2024 2:26 pm Follow Up, Right Breast Cancer October 272024 2:50pm Reason for Visit Admit Date Breast cancer, right October 27, 2024 2 :50pm Allergies, Adverse Reactions, Alerts Allergen Type Severity Reaction Last Updated Verified Status meperidine Allergy Unknown Rash April 26, 2024 4:06pm Yes Active daptomycin Allergy Unknown Rash April 26, 2024 4:06pm Yes Active doxycycline Allergy Unknown Rash April 4:06pm Yes Active tigecycline Allergy Unknown Rash April 4:06pm Yes Active vancomycin Allergy Unknown Unknown Reaction February 11, 2024 3:33pm Yes Active Social History Smoking Status Status Start Date End Date Date of Observa tion Never smoked tobacco (finding) February 11, 2024 9:38am Observation Status Observation Response Date of Response Legal Sex Female (finding) Sex Assigned At Female September h, 1971 Problems Active Problems Medical Problem Onset Date Status Comments Breast cancer, right Unknown Active 4 IDC, 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 Silver Sulfadiazin e (Silvadene) 1 % cream Discont inued 1 APPLIC TOPICA L Twice daily 50 Decemb er 2023 1:00am u [email or web address] 4:07p m Apply to open areas on radiation site, twice a day until healed. Cefuroxime Axetil 250 mg Tablet Discont inued 2018 1:00am [facility] 2023 3:30p m Trazodone 50 mg Tablet Discont inued 2018 1:00am [facility] markel 2023 3:31p m Citalopram 10 mg Tablet Discont inued 2018 1:00am [facility] 2023 3:30p m Metoprolol Succinate (Toprol Xl) 25 mg Tablet Extended Release 24 Hr Discont inued 2018 1:00am [facility]el 2023 3:31p m Metoprolol Succinate (Toprol Xl) 25 mg tablet extended release 24 hr Active 100 MG PO Daily Dece er 2023 3:26pm Unknown Mometasone 0.1 % cream Discont inued 1 APPLIC TOPICA L Daily 45 Octobe r 2023 12:00a m [email or web address] 4:07p m Apply to radiation site, once a day, AFTER radiation treatment. Abemaciclib (Verzenio) 150 mg tablet Active 150 MG PO Twice daily 2024 1:00am Unknown Gabapentin 300 mg capsule Active 300 MG PO Twice daily 2024 1:00am Unknown Apixaban (Eliquis) 5 mg tablet Active 5 MG PO Twice daily [facility] er 2023 1:00am Unknown Potassium Chloride 10 mEq tablet extended release Active 40 MEQ PO [facility] er 2023 1:00am Unknown Magnesium Oxide (Magox) 400 mg (241.3 mg magnesium) tablet Active 400 MG PO Daily [facility] er 2023 1:00am Unknown pyridoxine (vitamin B6) Active PO [facility] er 2023 1:00am Unknown mecobalamin (vitamin B12) Active PO [facility] 2023 1:00am Unknown Anastrozole 1 mg tablet Active 1 MG PO Daily [facility] 2023 1:00am Unknown Ertapenem 1 gram recon soln Active 1 GM IV Twice daily [facility] er 2023 1:00am Unknown Tedizolid (Sivextro) 200 mg tablet Active 200 MG PO [facility] 2023 1:00am Unknown Vital Signs Vital Reading Result Reference Range Collection Date/Time Height 70.08 [in_i] April 26, 2024 4:01pm Weight 90.52 kg April 26, 2024 4:01pm Advance Directives Advance Directive Response Recorded Date/ Time Advance Directives No December 10, 2017 11:40am Insurance Providers Guarantor Yasmin Flannery Address [address] [place], [place] [address] Contact Info. Home Phone: Payer Policy Id Subscriber's Name Subscriber Id Effectiv e Date Expiration Date Danna GARCIA [id number] Yasmin Flannery [id number] Encounters Encounter Location(s) Arrival/Admit Date Discharge/Depart Date Provider(s) Registered Recurring -Infusion Therapy - O/P August 24, 2024 2:26pm Shereen Smallwood PA-C Departed Physician/Provi tami Office Visit -Cancer Center Ambulatory October 27, 2024 2:50pm October 27, 2024 3:48pm Quincy Colbert MD Recent Diagnosis Onset Date Admit Date Breast cancer, right Unknown September 2:50pm Assessments Diagnosis Onset Date Resolution Status Admit Date Breast cancer, right acute Augu st 2024 2:50pm Plan of Treatment Author Quincy Colbert [facility] Authored October 27, 2024 2: 59pm Assessment: 53-year-old female with clinical stage IIIc, 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 ER negative (weakly positive) CA negative HER2 negative. She received neoadjuvant chemotherapy with carboplatin and paclitaxel and Keytruda. October 2023 underwent bilateral mastectomy with final pathology in the right breast ypT1c (m) N2a. 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 Ultimately required removal of the left tissue service station helper. Also resulted in delays in initiation of her radiation she was not discharged from the hospital until Jan 2024. February 10, 2024 patient completed right whole breast radiation to a dose of 42.5 Dash in 16 fractions including the regional lymphatics as well as an SIB boost to the superior internal mammary lymph nodes (48Gy/16fx) which were FDG avid on her pretreatment PET. Returns to clinic today and I am pleased with healing on the right. There is minimal radiation fibrosis and I think she will do well with her subsequent reconstruction on the right. She continues on her antibiotic therapy as well as the pembrolizumab q. 21 days with Verzenio. Patient continues on 4 antibiotics now with a another wound dehiscence of the left chest wall. She has close follow-up with her plastic surgeon as well as infectious disease physician. She was encouraged to continue her skin care on the right. We will see her back in 6 months for routine follow-up. Future Tests Future scheduled test information is unavailable Pending Tests Pending diagnostic test information is unavailable Future Visits Future appointment information is unavailable Referrals to Other Providers Referral information is unavailable Future Procedures Future procedure information is unavailable Future Medications Future medication information is unavailable Patient Instructions Patient instructions are unavailable
[2024-11-01 13:33] VITALS: BP 103/70; PULSE 115; TEMP 36.4; O2SAT 95
--- OUTSIDE RECORDS SUMMARY | 2024-11-02 11:59 | XMS_ITS | Encounter Summary ---
[facility] Address [id number] [address] [place] [address] Care Team Providers Care Breeding Manager Name Role Phone Emelia Collier ADMINISTRATION ASSISTANT-SPRAY GUN REPAIRER HELPER Primary Care Provider + Reason for Visit * Reason Onset Date Comments Transition Of Care 08/02/2024 Encounter Details Date Type Department Care Team (Late st Contact Info) Description 08/02/2024 Telephone [facility] [address] [place] [phone] Joelle Betancourt, saxophone teacher Of Care Social History Tobacco Use [...] Answer Date Recorded Total Score 0 07/14/2024 [facility] of Occupat ional Health - Occupational Stress [...] file Travel History Travel Start Travel End [place] 09/13/2024 10/26/2024 documented as of this encounter Miscellaneous Notes [...] Specialty: Infectious Disease *Name of Discharging Facility: [facility]. Date of Facility Discharge: 07.27-07.29.24 Date of Interactive Contact and Name of Handle Attacher: 08.02.24 1316 spoke with patient. *Medication Review Completed: No START taking: acetaminophen (TYLENOL) diazePAM (VALIUM) docusate sodium (COLACE) oxyCODONE (ROXICODONE) STOP taking: anastrozole 1 mg chemo tablet (ARIMIDEX) VERZENIO 150 mg chemo tablet (abemaciclib) Medication Reconciliation Questions/Concerns: Discussed new medication with patient. States she has medication and is taking as ordered. *Follow Up Appointments with Providers: Primary: EMELIA COLLIER APRN-ESPERANZA [phone] TBD Specialty: 08.03.24 0900 Shereen DUFFY [facility] Plastic and Reconstructive Surgery Specialty: 08.16.24 [address] [facility] Infectious Disease - [place], Review of Pending Lab/Diagnostic Tests and Plan [...] Plastic and Reconstructive Surgery [address] [facility] [address] [place] [address] Marisela Davila, ADMINISTRATION ASSISTANT-SPRAY GUN REPAIRER HELPER [address], [facility] [address] [place] [address] documented as of this encounter Goals Goal Patient Goal Type Associated Problems Recent Progress Patient-Stated? 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
--- OUTSIDE RECORDS SUMMARY | 2024-11-02 11:59 | XMS_ITS | Encounter Summary ---
Author Organization [employer] [facility] Address [id number] [address] [place] [address] Care Team Providers Care Replenishment Specialist Name Role Phone Amy Collier CYBER DEFENSE FORENSICS ANALYST-SHEET METAL LAYOUT WORKER Primary Care Provider + Encounter Details Date Type Department Care Team (Late st Contact Info) Description 06/23/2024 Telephone [facility] Plastic and Reconstructive Surgery [address] [facility] [address] [place] [address] Viviane Lopez CMA Social History Tobacco Use Types Packs/Day Years Used Date Smoking Tobacco: Never Passive Smoke Exposure: Past Smokeless Tobacco: Never Alcohol Use Standard Drinks/Week Comments Yes 0 (1 standard drink = 0.6 oz pur e alcohol) Socially AHC Utilities Answer Date Recorded In the past 12 months has [employer] electric, gas, oil, or water [employer] threatened to shut off services in your [...] often do you attend chur ch or gnosticist services? More than 4 times [...] Answer Date Recorded Total Score 2 03/30/2024 [facility] [place] of Occupat ional Health - Occupational Stress [...] file Travel History Travel Start Travel End [place] 09/13/2024 10/26/2024 documented as of this encounter Miscellaneous Notes * Telephone Encounter - Viviane Lopez CMA - 06/23/2024 1:45 PM EDT L tissue breast 06/13/24 Positive culture result. documented in this encounter Plan of Treatment Upcoming Encounters Date Type Department Care Team (Late st Contact Info) Description 11/16/2024 1:30 PM EDT Office Visit [facility] [address] [facility] [address] [place] [address] Marisela Davila, CYBER DEFENSE FORENSICS ANALYST-[facility] [address], [facility] [address] [place] [address] documented as of this encounter Goals Goal Patient Goal Type Associated Problems Recent Progress Patient-Stated? 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
--- OUTSIDE RECORDS SUMMARY | 2024-11-02 11:59 | XMS_ITS | Encounter Summary ---
Author Organization [place] [facility] Address [id number] [address] [place] [address] Care Team Providers Care Welding Specialist Name Role Phone Amy Collier PERSONNEL ADVISER-HOME HEALTH CLINICIAN Primary Care Provider + Encounter Details Date Type Department Care Team (Late st Contact Info) Description 08/02/2024 Telephone [facility]astic and Re[facility]ive [facility] [address] [facility] [address] [place] [address] Viviane Lopez CMA Social History Tobacco Use Types Packs/Day Years Used Date Smoking Tobacco: Never Passive Smoke Exposure: Past Smokeless Tobacco: Never Alcohol Use Standard Drinks/Week Comments Yes 0 (1 standard drink = 0.6 oz pur e alcohol) Socially AHC Utilities Answer Date Recorded In the past 12 months has [employer] electric, gas, oil, or water [employer] threatened to shut off services in your [...] Answer Date Recorded Total Score 0 07/14/2024 [facility] [place] of Occupat ional Health - Occupational Stress [...] file Travel History Travel Start Travel End [place] 09/13/2024 10/26/2024 documented as of this encounter Miscellaneous Notes * Telephone Encounter - Viviane Lopez CMA - 08/02/2024 9:53 AM EDT 07/27/24- AFB positive Tissue of left Breast documented in this encounter Plan of Treatment Upcoming Encounters Date Type Department Care Team (Late st Contact Info) Description 11/16/2024 1:30 PM EDT Office Visit [facility] [address] [facility] [address] [place] [address] Marisela Davila, PERSONNEL ADVISER-HOME HEALTH CLINICIAN [address], [facility] [address] [place] [address] documented as of this encounter [...] Infection Onset Date Last Indicated Resolved Time 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
--- OUTSIDE RECORDS SUMMARY | 2024-11-02 11:59 | XMS_ITS | Encounter Summary ---
Author Organization [employer] [facility] Address [facility] [id number] [address] [place] [address] Care Team Providers Care Edi Programmer Name Role Phone Amy Collier BENDING ROLL HAND-RADIOLOGY TECH Primary Care Provider + Encounter Details Date Type Department Care Team (Late st Contact Info) Description 11/30/2023 [facility] [address] [facility] [address] [place] [address] Shy Bob MA Social History Tobacco Use Types Packs/Day Years Used Date Smoking Tobacco: Never Smokeless Tobacco: Never Alcohol Use Standard Drinks/Week Comments Yes 0 (1 standard drink = 0.6 oz pur e alcohol) Socially AHC Utilities Answer Date Recorded In the past 12 months has [employer] electric, gas, oil, or water company threatened [...] often do you attend chur ch or jainism services? More than 4 times per year 02/27/2022 Do you belong to any clubs o r organizations such as mormonism groups, unions, fraternal or athletic groups, or [...] Answer Date Recorded Total Score 0 03/07/2022 [facility] [place] of Occupat ional Health - Occupational Stress [...] Travel History Travel Start Travel End [place] 09/13/2024 10/26/2024 documented as of this encounter Functional Status documented as of this encounter Miscellaneous Notes * Telephone Encounter - Shy Bob MA - 11/30/2023 11:20 AM EDT ----- Message from AMEENA Gomez sent at 11/28/2023 2:45 PM EDT ----- Please arrange [facility] follow-up appointment. She will need to be seen on her before December 09. 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
--- OUTSIDE RECORDS SUMMARY | 2024-11-02 11:59 | XMS_ITS | Encounter Summary ---
Author Organization [facility] Address [id number] [address] [place] [address] Care Team Providers Care Gerentological Physiotherapist Name Role Phone Amy Collier MOTOR VEHICLE ASSEMBLER-BOARDING HOUSE MANAGER Primary Care Provider + Encounter Details Date Type Department Care Team (Late st Contact Info) Description 06/16/2024 Orders Only [facility] Division [facility] - Interventional Radiology [address] [place] [phone] Guillaume Curiel MD [address] [place] [address] [address] [place] [address] Liver lesion (Primary Dx) Social History Tobacco Use Types Packs/Day Years Used Date Smoking Tobacco: Never Passive Smoke Exposure: Past Smokeless Tobacco: Never Alcohol Use Standard Drinks/Week Comments Yes 0 (1 standard drink = 0.6 oz pur e alcohol) Socially AHC Utilities Answer Date Recorded In the past 12 months has [employer], gas, oil, or water company threatened to [...] Answer Date Recorded Total Score 2 03/30/2024 [facility] of [facility]at [facility] - Occupational Stress Questionnaire Answer Date Recorded [...] Recorded Do you need help finding a [facility] and/or a training program? 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
--- OUTSIDE RECORDS SUMMARY | 2024-11-02 11:59 | XMS_ITS | Encounter Summary ---
Author Organization [employer] tem Address [facility] [place]-[id number] [address] [place] [address] Care Team Providers Care Manager Photo Name Role Phone Amy Collier FAN BALANCER-VETERINARY MEDICAL OFFICER Primary Care Provider + Encounter Details Date Type Department Care Team (Late st Contact Info) Description 12/15/2023 Telephone [facility] Infectious Disease [address] [facility] [address] [place] [address] Crista Mauricio CMA Social History Tobacco Use Types Packs/Day Years Used Date Smoking Tobacco: Never Smokeless Tobacco: Never Alcohol Use Standard Drinks/Week Comments Yes 0 (1 standard drink = 0.6 oz pur e alcohol) Socially [employer] Utilities Answer Date Recorded In the past 12 months has [employer] electric, gas, oil, or water company threatened [...] Answer Date Recorded Total Score 0 03/07/2022 [facility] of Occupat ional Health - Occupational Stress [...] file Travel History Travel Start Travel End [place] 09/13/2024 10/26/2024 documented as of this encounter Miscellaneous Notes * Telephone Encounter - Crista Mauricio CMA - 12/15/2023 8:57 AM EDT ----- Message from Carolina Munguia APRN-ESPERANZA sent at 12/14/2023 1:55 PM EDT ----- [...] 8:57 AM EDT NEW PA SUBMITTED: MARTINEZ [id number] [employer] is processing your PA request [...] [place] [employer] 2017 Your PA request for [id number] was approved for 28 days. The PA# assigned is [id number]. * Telephone Encounter - AMEENA Vallejo - 12/15/2023 8:57 AM EDT Great news! Thank you. 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
--- OUTSIDE RECORDS SUMMARY | 2024-11-02 11:59 | XMS_ITS | Clinical Summary ---
Author Organization [facility] Address [address] [place] [address] Care Team Providers Care Felt Cementer Name Role Phone Phys, Not On File [...] age to complete this topic Care Teams Felt Cementer Relationship Specialty Start Date End Date Phys, Not On File PCP - General 12/08/23 Jhon Rosado MD [address] [facility] [address] [place] [phone] General Surgery 12/08/23
--- OUTSIDE RECORDS SUMMARY | 2024-11-02 11:59 | XMS_ITS | Encounter Summary ---
Author Organization [employer] Address [facility] [id number] [place] [address] Care Team Providers Care Mainspring Former Name Role Phone Amy Collier William LINDQUIST Primary Care Provider + Reason for Referral * Consultation (Urgent) - Pending Review Specialty Diagnoses / Procedures Referred By Contac t Referred To Contact Infectious Disease / Respiratory Therapy Diagnoses Acid fast bacillus Carolina Munguia APRN-CNP [address] [address] [address] [address] Phone: tel: fax: Uyen Rivera MD [address] [address] Phone: tel: fax: Referral ID Status Reason Start Date Expiration Date Visits Requested Visits Authorized [id number] Pending Review Specialty Services Required 12/02/2023 12/01/2024 1 1 * Consultation (Urgent) - Pending Review Specialty Diagnoses / Procedures Referred By Contac t Referred To Contact Infectious Disease Diagnoses Acid fast bacillus Carolina Munguia APRN-CNP [address] [facility] [address] [address] Phone: tel: fax: Clint Lizarraga MD [address] [place] [address] Phone: tel: fax: Referral ID Status Reason Start Date Expiration Date Visits Requested Visits Authorized [id number] Pending Review Specialty Services Required 12/02/2023 12/01/2024 1 1 Encounter Details Date Type Department Care Team (Late st Contact Info) Description 12/02/2023 Orders Only [facility] [address] [facility] [address] [place] [address] Carolina Munguia APRN-CNP [address] [facility], [address] [address] Acid fast bacillus (Primary Dx) Social History Tobacco Use Types Packs/Day Years Used Date Smoking Tobacco: Never Smokeless Tobacco: Never Alcohol Use Standard Drinks/Week Comments Yes 0 (1 standard drink = 0.6 oz pur e alcohol) Socially [employer] Utilities Answer Date Recorded In the past 12 months has [employer], gas, oil, or water [employer] threatened to shut off services in your home? No 12/03/2023 Social Connection and Isolat ion Panel [NHANES] Answer Date Recorded In a typical week, how many times do you talk on the phone with family, friends, or neighbors? Twice a week 02/27/2022 How often do you get togethe r with friends or relatives? Three times a week 02/27/2022 How often do you attend [facility] or methodist services? More than 4 times [...] Answer Date Recorded Total Score 0 03/07/2022 [facility] Questionnaire Answer Date [...] file Travel History Travel Start Travel End [place] 09/13/2024 10/26/2024 documented as of this encounter Functional Status documented as of this encounter Plan of Treatment Upcoming Encounters Date Type Department Care Team (Late st Contact Info) Description 11/16/2024 1:30 PM EDT Office Visit [facility] [address] [place] [address] Marisela Davila, CUSTOMER CONTACT REPRESENTATIVE-OCEAN BIOLOGIST [address], [facility] [address] [place] [address] Scheduled Referrals Name Type Priority Associated Diagnoses [...] Infection Onset Date Last Indicated Resolved Time NEGATIVE NOTCHER Comment:LT CHEST WALL TISSUE(08/12/24) 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
--- OUTSIDE RECORDS SUMMARY | 2024-11-02 11:59 | XMS_ITS | Encounter Summary ---
Author Organization [facility] tem Address [facility] [id number] [address] [place] [address] Care Team Providers Care Heel Turner Name Role Phone Amy Collier MATHEMATICAL ENGINEER-PRACTICING UROLOGIST Primary Care Provider + Reason for Referral * Diagnostic Imaging (Routine) - Closed Specialty Diagnoses / Procedures Referred By Contac t Referred To Contact Radiology Diagnoses Liver lesion Procedures IR percutaneous biopsy liver Guillaume Curiel MD [address] [place] [address] [place] [address] Phone: tel: fax: Referral ID Status Reason Start Date Expiration Date Visits Re quested Visits Authorized [id number] Closed 1 1 Encounter Details Date Type Department Care Team (Late st Contact Info) Description 07/06/2024 Orders Only [facility] - Interventional Radiology [address] [place] [address] Guillaume Curiel MD [address] [place] [address] [place] [address] Liver lesion (Primary Dx) Social History Tobacco Use Types Packs/Day Years Used Date Smoking Tobacco: Never Passive Smoke Exposure: Past Smokeless Tobacco: Never Alcohol Use Standard Drinks/Week Comments Yes 0 (1 standard drink = 0.6 oz pur e alcohol) Socially [employer] Utilities Answer Date Recorded In the past 12 months has [employer] electric, gas, oil, or water company threatened [...] Score 2 03/30/2024 [employer] of Occupat ionwi Health - Occupational Stress Questionnaire Answer Date [...] file Travel History Travel Start Travel End [place] 09/13/2024 10/26/2024 documented as of this encounter Plan of Treatment Upcoming Encounters Date Type Department Care Team (Late st Contact Info) Description 11/16/2024 1:30 PM EDT Office Visit [facility] [address] [facility] [address] [place] [address] Marisela Davila, MATHEMATICAL ENGINEER-PRACTICING UROLOGIST [address], [facility] [address] [place] [address] documented as of this encounter [...] trained personnel. A total of 30 minutes [id number] moderate sedation was provided by Dr. Luz. [...] trained personnel. A total of 30 minutes ptiz-ep-[id number] sedation was provided by Dr. Luz. 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
--- OUTSIDE RECORDS SUMMARY | 2024-11-02 11:59 | XMS_ITS | Encounter Summary ---
Author Organization [facility] Address [facility] [id number] [address] [place] [address] Care Team Providers Care Plug Paster Name Role Phone Amy Collier BROILER SUPERVISOR-REFLEXOLOGIST Primary Care Provider + Reason for Visit * Reason Onset Date Comments PT Discharge 12/04/2023 Encounter Details Date Type Department Care Team (Late st Contact Info) Description 12/04/2023 [facility] [address] [place] [address] Christopher Joe MD [address] [place] [address] PT Discharge Social History Tobacco Use Types Packs/Day Years Used Date Smoking Tobacco: Never Smokeless Tobacco: Never Alcohol Use Standard Drinks/Week Comments Yes 0 (1 standard drink = 0.6 oz pur e alcohol) Socially [employer] Utilities Answer Date Recorded In the past 12 months has [employer], gas, oil, or water company threatened to [...] often do you attend chur ch or taoism services? More than 4 times per year [...] Answer Date Recorded Total Score 0 03/07/2022 [facility] of Occupat ional [...] Recorded Do you need help finding a [facility] career center and/or a training program? No [...] file Travel History Travel Start Travel End [place] 09/13/2024 10/26/2024 documented as of this encounter Miscellaneous Notes * Telephone Encounter - Francisca Michael - 12/04/2023 9:45 AM EDT ----- Message from Dr. Christopher Joe MD sent at 12/03/2023 4:17 PM EDT ----- This patient was seen in consultation at She will not require a follow-up visit in our office, as she follows with [facility] Cardiology group Thank you documented in this encounter Plan of Treatment Upcoming Encounters Date Type Department Care Team (Late st Contact Info) Description 11/16/2024 1:30 PM EDT Office Visit [facility] [address] [place] [address] Marisela Davila, BROILER SUPERVISOR-REFLEXOLOGIST [address], [address] [place] [address] documented as of this encounter Visit Diagnoses Not on filedocumented in this encounter Additional Health Concerns Infection Onset Date Last Indicated Resolved Time CHICKEN HANDLER Comment:LT CHEST WALL TISSUE(08/12/24) 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
--- OUTSIDE RECORDS SUMMARY | 2024-11-02 11:59 | XMS_ITS | Encounter Summary ---
Author Organization [employer] Address [facility] [place]-[id number] [address] [place] [address] Care Team Providers Care Dog Day Care Attendant Name Role Phone Amy Collier C WINFORMS DEVELOPER-CORE PILER Primary Care Provider + Encounter Details Date Type Department Care Team (Late st Contact Info) Description 01/18/2024 Telephone [facility] [address] [facility] [address] [place] [address] Shy Bob MA Social History Tobacco Use Types Packs/Day Years Used Date Smoking Tobacco: Never Smokeless Tobacco: Never Alcohol Use Standard Drinks/Week Comments Yes 0 (1 standard drink = 0.6 oz pur e alcohol) Socially [employer] Utilities Answer Date Recorded In the past 12 months has [employer] electric, gas, oil, or water company threatened [...] Answer Date Recorded Total Score 0 03/07/2022 [facility] of Occupat ional Health - Occupational Stress [...] file Travel History Travel Start Travel End [place] 09/13/2024 10/26/2024 documented as of this encounter Miscellaneous Notes * Telephone Encounter - Shy Bob MA - 01/18/2024 12:55 PM EST ----- Message from AMEENA Hugo sent at 01/15/2024 2:11 PM EST ----- Regarding: f/u It appears this patient is being followed and managed by [facility] - please fax results to [...] Reconstructive Surgery [address] [place] [address] Marisela Davila APRN-CNP [address], [address] [place] [address] documented as of this encounter Visit Diagnoses Not on filedocumented in this encounter Additional Health Concerns Infection Onset Date Last Indicated Resolved Time DIRECTOR TREASURER Comment:LT CHEST WALL TISSUE(08/12/24) 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
--- OUTSIDE RECORDS SUMMARY | 2024-11-02 11:59 | XMS_ITS | Encounter Summary ---
Author Organization [employer] Address [facility] [id number] [address] [place] [address] Care Team Providers Care Cheese Weigher Name Role Phone mAy Collier DISK RECORDIST-ROLLER BEARING INSPECTOR Primary Care Provider + Encounter Details Date Type Department Care Team (Late st Contact Info) Description 12/02/2023 Telephone [facility] [address] [facility] [address] [place] [address] Shy Bob MA Social History Tobacco Use Types Packs/Day Years Used Date Smoking Tobacco: Never Smokeless Tobacco: Never Alcohol Use Standard Drinks/Week Comments Yes 0 (1 standard drink = 0.6 oz pur e alcohol) Socially [facility] Utilities Answer Date Recorded In the past 12 months has [employer] electric, gas, oil, or water company threatened [...] Answer Date Recorded Total Score 0 03/07/2022 [facility] [place] of Occupat ional Health - Occupational Stress [...] file Travel History Travel Start Travel End [place] 09/13/2024 10/26/2024 documented as of this encounter Functional Status documented as of this encounter Miscellaneous Notes * Telephone Encounter - Shy Bob MA - 12/02/2023 3:08 PM EDT ----- Message from AMEENA Vallejo sent at 12/02/2023 2:43 PM EDT ----- Regarding: outpatient referral A new outpatient referral for [facility] infectious Disease was placed for this patientwhile she was hospitalized. According to the neighborhood planner they called to make appointment and was told that [facility]. Patient has not heard anything from them. 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 Can someone please reach out to [facility] and see if we can [...] referral I would like referrals sent to [facility] and [facility] as well. I will place in [facility] ----- Message ----- From: Nabila Mora CMA Sent: 12/02/2023 3:11 PM EDT To: AMEENA Gomez; # Subject: RE: outpatient referral Wendy philip, Referrals to [facility] & [facility] take 7-10 business days to [...] outpatient referral A new outpatient referral for [facility] infectious Disease was placed for this patientwhile she was hospitalized. According to the neighborhood planner they called to make appointment and was told that [facility] patient. Patient has not heard anything from them. 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 Can someone please reach out to [facility] and see if we can get her an appointment next week? The referral is in [facility]. Thank you. Adding Leelee for awareness * Telephone Encounter - Shy Bob MA - 12/02/2023 3:08 PM EDT Referral faxed to [facility]. They are scheduling for December/January, if they have any cancellations they will call patient. Faxed referral to [phone] * Telephone Encounter - Nabila Mora CMA - 12/02/2023 3:08 PM EDT Referral & copy of insurance card faxed to [facility] as well & I called personally to [facility] ([phone]) to place urgent referral-- spoke to Paul [...] the patient to schedule. Copy of paper [facility] referral form will be scanned into media. * Telephone Encounter - Shy Bob MA - 12/02/2023 3:08 PM EDT [facility] is not able to see patient due to insurance out of network. Patient was notified per [facility]. * Telephone Encounter - AMEENA Vallejo - 12/02/2023 3:08 PM EDT I spoke with patient and she would like referral to [facility]. I am placing in [facility] now. Thanks for your help on this! * Telephone Encounter - Nabila Mora CMA - 12/02/2023 3:08 PM EDT [facility] requires their own form to be completed-- I have printed this off, and it does also require a signature as well--placed on [employer]'s desk. Refer a patient by paper form Fill out and fax the referral form and clinical documentation to: For referrals to [facility], fax to [phone]. For referrals to the [facility], fax to [phone]. After we have received your fax, we will contact your patient directly to schedule a convenient time and location for his or her appointment. We will send you confirmation of your patient???s appointment for your records. For referrals to [facility], fax to [phone]. If urgent, after faxing, call [phone] to expedite tape recorder repairer. For referrals to the [facility], fax to [phone]. If urgent, call [facility] at to expedite. * Telephone Encounter - Shy Bob MA - 12/02/2023 3:08 PM EDT Referral signed and faxed. * Telephone Encounter - Shy Bob MA - 12/02/2023 3:08 PM EDT ----- Message from AMEENA Vallejo sent at 12/08/2023 10:37 AM EDT ----- Regarding: RE: outpatient referral Can we please send referral to [facility] physician Dr. Cortez York. I will put order in. Dr. Noguera would like her to be seen as soon as possible. Thx. ----- Message ----- From: Nabila Mora CMA Sent: 12/02/2023 3:11 PM EDT To: AMEENA Gomez; # Subject: RE: outpatient referral Wendy philip, Referrals to [facility] & [facility] take 7-10 business days to [...] outpatient referral A new outpatient referral for [facility] infectious Disease was placed for this patientwhile she was hospitalized. According to the neighborhood planner they called to make appointment and was told that [facility] patient. Patient has not heard anything from them. 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 Can someone please reach out to [facility] and see if we can get her an appointment next week? The referral is in [facility]. Thank you. Adding Leelee for awareness * Telephone Encounter - Shy Bob MA - 12/02/2023 3:08 PM EDT Referral faxed to [facility], will call to verify documented in this encounter Plan of Treatment Upcoming Encounters Date Type Department Care Team (Late st Contact Info) Description 11/16/2024 1:30 PM EDT Office Visit [facility] [address] 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
--- OUTSIDE RECORDS SUMMARY | 2024-11-02 11:59 | XMS_ITS | Encounter Summary ---
Author Organization [facility] Address [facility]-[id number] [address] [place] [address] Care Team Providers Care Painter Tumbling Barrel Name Role Phone Amy Collier INSTANTIZER OPERATOR-ENVIRONMENTAL GEOLOGIST Primary Care Provider + Encounter Details Date Type Department Care Team (Late st Contact Info) Description 12/25/2023 Orders Only [facility] Infectious Disease [address] [facility] [address] [place] [address] External, Scanning Provider Social History Tobacco Use Types Packs/Day Years Used Date Smoking Tobacco: Never Smokeless Tobacco: Never Alcohol Use Standard Drinks/Week Comments Yes 0 (1 standard drink = 0.6 oz pur e alcohol) Socially AHC Utilities Answer Date Recorded In the past 12 months has [employer] electric, gas, oil, or water company [...] often do you attend chur ch or islam services? More than 4 times [...] Total Score 0 03/07/2022 [facility] [place] of Occupat ional Health - Occupational Stress [...] Reconstructive Surgery [address] [place] [address] Marisela Davila, INSTANTIZER OPERATOR-ENVIRONMENTAL GEOLOGIST [address], [address] [place] [address] documented as of this encounter Procedures Procedure Name Priority Date/Time Associated Diagnosis Comments PLATELET COUNT Routine 12/24/2023 WBC Routine 12/24/2023 CREATININE, SERUM Routine 12/24/2023 documented in this encounter Results * Platelet count (12/24/2023) External Platelet Count 163 150 - 450 MANUALLY TRANSCRIBED RESULTS Blood 12/24/2023 us Scanning Provider External LAB BLOOD ORDERABLES Final Result MANUALLY TRANSCRIBED RESULTS * WBC (12/24/2023) External Wbc Count 4.3 4.0 - 11.0 MANUALLY TRANSCRIBED RESULTS Blood 12/24/2023 us Scanning Provider External LAB BLOOD ORDERABLES Final Result Performing Organization Address City/State/[facility] Co de Phone Number MANUALLY TRANSCRIBED RESULTS * (ABNORMAL) Creatinine includes GFR, serum (12/24/2023) External Creatinine 1.20(A) 0.55 - 1.02 MANUALLY TRANSCRIBED RESULTS Blood 12/24/2023 us Scanning Provider External LAB BLOOD ORDERABLES Final Result Performing Organization Address [facility] Co de Phone Number MANUALLY TRANSCRIBED RESULTS documented in this encounter Visit Diagnoses Not on filedocumented in this encounter Additional Health Concerns Infection Onset Date Last Indicated Resolved Time 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
--- OUTSIDE RECORDS SUMMARY | 2024-11-02 11:59 | XMS_ITS | Encounter Summary ---
Author Organization [facility] Address [facility] [place][id number] [address] [place] [address] Care Team Providers Care Check Processor Name Role Phone Amy Collier PORCELAIN ENAMELING SUPERVISOR-ATTENDANT HONOR BAR Primary Care Provider + Encounter Details Date Type Department Care Team (Late st Contact Info) Description 01/15/2024 Orders Only [facility] Infectious Disease [address] [facility] [address] [place] [address] External, Scanning Provider Social History Tobacco Use Types Packs/Day Years Used Date Smoking Tobacco: Never Smokeless Tobacco: Never Alcohol Use Standard Drinks/Week Comments Yes 0 (1 standard drink = 0.6 oz pur e alcohol) Socially AHC Utilities Answer Date Recorded In the past 12 months has [employer] electric, gas, oil, or water company threatened [...] often do you attend chur ch or muslim services? More than 4 times [...] Answer Date Recorded Total Score 0 03/07/2022 [facility] [place] of Occupat ional Health - Occupational Stress [...] file Travel History Travel Start Travel End [place] 09/13/2024 10/26/2024 documented as of this encounter Plan of Treatment Upcoming Encounters Date Type Department Care Team (Late st Contact Info) Description 11/16/2024 1:30 PM EDT Office Visit [facility] Plastic and Reconstructive Surgery [address] [place] [address] Marisela Davila, PORCELAIN ENAMELING SUPERVISOR-ATTENDANT HONOR BAR [address], [address] [place] [address] documented as of this encounter Procedures Procedure Name Priority Date/Time Associated Diagnosis Comments PLATELET COUNT Routine 01/14/2024 WBC Routine 01/14/2024 CREATININE, SERUM Routine 01/14/2024 documented in this encounter Results * Platelet count (01/14/2024) External Platelet Count 181 MANUALLY TRANSCRIBED RESULTS Blood 01/14/2024 us Scanning Provider External LAB BLOOD ORDERABLES Final Result MANUALLY TRANSCRIBED RESULTS * (ABNORMAL) WBC (01/14/2024) External Wbc Count 3.8(A) 4.0 - 11.0 MANUALLY TRANSCRIBED RESULTS Blood 01/14/2024 us Scanning Provider External LAB BLOOD ORDERABLES Final Result MANUALLY TRANSCRIBED RESULTS * (ABNORMAL) Creatinine includes GFR, serum (01/14/2024) External Creatinine 1.12(A) 0.55 - 1.02 MANUALLY TRANSCRIBED RESULTS Blood 01/14/2024 us Scanning Provider External LAB BLOOD ORDERABLES Final Result Performing Organization Address City/[facility] Co de Phone Number MANUALLY TRANSCRIBED RESULTS documented in this encounter Visit Diagnoses Not on filedocumented in this encounter Additional Health Concerns Infection Onset Date Last Indicated Resolved Time 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
--- OUTSIDE RECORDS SUMMARY | 2024-11-02 11:59 | XMS_ITS | Encounter Summary ---
Author Organization [facility] Address [id number] [address] [place] [address] Care Team Providers Care Assistant Terminal Manager Name Role Phone Amy Collier FIELD HORTICULTURAL SPECIALTY GROWER-CONTINUITY EDITOR Primary Care Provider + Encounter Details Date Type Department Care Team (Late st Contact Info) Description 01/07/2024 Orders Only [facility] Infectious Disease [address] [facility] [address] [place] [address] External, Scanning Provider Social History Tobacco Use Types Packs/Day Years Used Date Smoking Tobacco: Never Smokeless Tobacco: Never Alcohol Use Standard Drinks/Week Comments Yes 0 (1 standard drink = 0.6 oz pur e alcohol) Socially AHC Utilities Answer Date Recorded In the past 12 months has [employer] electric, gas, oil, or water company threatened [...] often do you attend chur ch or episcopal services? More than 4 times per year [...] Answer Date Recorded Total Score 0 03/07/2022 [facility] [place] of Occupat ional Health - Occupational Stress [...] Reconstructive Surgery [address] [place] [address] Marisela Davila, FIELD HORTICULTURAL SPECIALTY GROWER-CONTINUITY EDITOR [address] [place] [address] documented as of this encounter Procedures Procedure Name Priority Date/Time Associated Diagnosis Comments PLATELET COUNT Routine 12/31/2023 WBC Routine 12/31/2023 CREATININE, SERUM Routine 12/31/2023 documented in this encounter Results * Platelet count (12/31/2023) External Platelet Count 164 150 - 450 MANUALLY TRANSCRIBED RESULTS Blood 12/31/2023 us Scanning Provider External LAB BLOOD ORDERABLES Final Result MANUALLY TRANSCRIBED RESULTS * WBC (12/31/2023) External Wbc Count 5.6 4.0 - 11.0 MANUALLY TRANSCRIBED RESULTS Blood 12/31/2023 us Scanning Provider External LAB BLOOD ORDERABLES Final Result MANUALLY TRANSCRIBED RESULTS * Creatinine includes GFR, serum (12/31/2023) External Creatinine 0.89 0.55 - 1.02 MANUALLY TRANSCRIBED RESULTS Blood 12/31/2023 us Scanning Provider External LAB BLOOD ORDERABLES Final Result Performing Organization Address City/State/[facility] Co de Phone Number MANUALLY TRANSCRIBED RESULTS documented in this encounter Visit Diagnoses Not on filedocumented in this encounter Additional Health Concerns Infection Onset Date Last Indicated Resolved Time 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
--- OUTSIDE RECORDS SUMMARY | 2024-11-02 11:59 | XMS_ITS | Encounter Summary ---
Author Organization [facility] Address [facility]-[id number] [address] [place] [address] Care Team Providers Care Engineering Mgr Name Role Phone Amy Collier CERTIFIED COMPOSITES TECHNICIAN-FORGING MACHINE HAND Primary Care Provider + Encounter Details Date Type Department Care Team (Late st Contact Info) Description 12/31/2023 Orders Only [facility] Internal Medicine - Family Medicine [address] [place] [phone] Ref Prov, [place] [address] Social History Tobacco Use Types Packs/Day Years Used Date Smoking Tobacco: Never Smokeless Tobacco: Never Alcohol Use Standard Drinks/Week Comments Yes 0 (1 standard drink = 0.6 oz pur e alcohol) Socially [employer] Utilities Answer Date Recorded In the past 12 months has [employer] electric, gas, oil, or water company threatened [...] any clubs o r organizations such as advent groups, unions, fraternal or athletic groups, or [...] Answer Date Recorded Total Score 0 03/07/2022 [facility] [place] of Occupat ional Health - Occupational Stress [...] Recorded Do you need help finding a [facility] and/or a [...] Reconstructive Surgery [address] [place] [address] Marisela Davila APRN-FORGING MACHINE HAND [address], [address] [place] [address] documented as of this encounter Procedures Procedure [...] Infection Onset Date Last Indicated Resolved Time 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
--- OUTSIDE RECORDS SUMMARY | 2024-11-02 11:59 | XMS_ITS | Encounter Summary ---
Author Organization [employer] Sys tem Address [id number] [address] [place] [address] Care Team Providers Care Bagman/Woman Name Role Phone Amy Collier BEAMING INSPECTOR-DIRECTOR PROJECT MANAGEMENT Primary Care Provider + Encounter Details Date Type Department Care Team (Late st Contact Info) Description 06/20/2024 Telephone [facility] Internal Medicine - Family Medicine [address] [place] [phone] Kodi Monteiro CMA Social History Tobacco Use Types Packs/Day Years Used Date Smoking Tobacco: Never Passive Smoke Exposure: Past Smokeless Tobacco: Never Alcohol Use Standard Drinks/Week Comments Yes 0 (1 standard drink = 0.6 oz pur e alcohol) Socially AHC Utilities Answer Date Recorded In the past 12 months has [employer] electric, gas, oil, or water company threatened [...] Answer Date Recorded Total Score 2 03/30/2024 [facility] [place] of Occupat ional Health - Occupational Stress [...] file Travel History Travel Start Travel End [place] 09/13/2024 10/26/2024 documented as of this encounter [...] [address] [facility] [address] [place] [address] Marisela Davila, BEAMING INSPECTOR-[facility] [address] [place] [address] documented as of this encounter Goals Goal Patient Goal Type Associated Problems Recent Progress Patient-Stated? 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
--- OUTSIDE RECORDS SUMMARY | 2024-11-02 11:59 | XMS_ITS | Encounter Summary ---
Author Organization [facility] Address [facility]-[id number] [address] [place] [address] Care Team Providers Care Products Mechanical Design Engineer Name Role Phone Amy Collier KNOTTING MACHINE OPERATOR-FISHING ROD TRIMMER Primary Care Provider + Encounter Details Date Type Department Care Team (Late st Contact Info) Description 12/22/2023 Orders Only [facility] Infectious Disease [address] [facility] [address] [place] [address] External, Scanning Provider Social History Tobacco Use Types Packs/Day Years Used Date Smoking Tobacco: Never Smokeless Tobacco: Never Alcohol Use Standard Drinks/Week Comments Yes 0 (1 standard drink = 0.6 oz pur e alcohol) Socially AHC Utilities Answer Date Recorded In the past 12 months has [employer] electric, gas, oil, or water company threatened [...] Answer Date Recorded Total Score 0 03/07/2022 [facility] [place] of Occupat ional Health - Occupational Stress [...] Reconstructive Surgery [address] [place] [address] Marisela Davila, KNOTTING MACHINE OPERATOR-FISHING ROD TRIMMER [address] [place] [address] documented as of this encounter Procedures Procedure [...] BLOOD ORDERABLES Final Result Performing Organization Address City/[facility] Co de Phone Number MANUALLY TRANSCRIBED RESULTS * Platelet count (12/17/2023) External Platelet Count 280 150 - 450 MANUALLY TRANSCRIBED RESULTS Blood 12/17/2023 us Scanning Provider External LAB BLOOD ORDERABLES Final Result Performing Organization Address City/[facility] de Phone Number MANUALLY TRANSCRIBED RESULTS * WBC (12/17/2023) External Wbc Count 5.4 4.0 - 11.0 MANUALLY TRANSCRIBED RESULTS Blood 12/17/2023 us Scanning Provider External LAB BLOOD ORDERABLES Final Result Performing Organization Address [facility] de Phone Number MANUALLY TRANSCRIBED RESULTS * (ABNORMAL) Creatinine includes GFR, serum (12/10/2023) External Creatinine 1.50(A) 0.55 - 1.02 MANUALLY TRANSCRIBED RESULTS Blood 12/10/2023 us Scanning Provider External LAB BLOOD ORDERABLES Final Result Performing Organization Address [facility] de Phone Number MANUALLY TRANSCRIBED RESULTS documented in this encounter Visit Diagnoses Not on filedocumented in this encounter Additional Health Concerns Infection Onset Date Last Indicated Resolved Time 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
--- OUTSIDE RECORDS SUMMARY | 2024-11-02 11:59 | XMS_ITS | Encounter Summary ---
Author Organization [employer] Sys tem Address [id number] [address] [place] [address] Care Team Providers Care Doula Name Role Phone Amy Collier ENERGY MANAGEMENT SPECIALIST-LUBRICATION WORKER Primary Care Provider + Encounter Details Date Type Department Care Team (Late st Contact Info) Description 08/02/2024 [facility] [address] [place] [address] Mela Berrios RN Social History Tobacco Use Types Packs/Day Years Used Date Smoking Tobacco: Never Passive Smoke Exposure: Past Smokeless Tobacco: Never Alcohol Use Standard Drinks/Week Comments Yes 0 (1 standard drink = 0.6 oz pur e alcohol) Socially AHC Utilities Answer Date Recorded In the past 12 months has [employer] electric, gas, oil, or water company threatened [...] often do you attend chur ch or restorationism services? More than 4 times [...] Answer Date Recorded Total Score 0 07/14/2024 [facility] [place] of Occupat ional Health - Occupational Stress [...] Plastic and Reconstructive Surgery [address] [facility] [address] [place] [address] Marisela Davila, ENERGY MANAGEMENT SPECIALIST-LUBRICATION WORKER [address], [facility] [address] [place] [address] documented as of this encounter Goals Goal Patient Goal Type Associated Problems Recent Progress Patient-Stated? 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
--- OUTSIDE RECORDS SUMMARY | 2024-11-02 12:00 | XMS_ITS | Encounter Summary ---
Author Organization [facility] Address [address] [place] [address] Care Team Providers Care Family Consultant Name Role Phone Randy Lu MD Primary Care Provider [phone] Encounter Details Date Type Department Care Team (Late Contact Info) Description 04/08/2024 Abstract [facility]anne [facility] SOU[facility] [place] [address] Evan Thompson DO [facility] [place], [facility]11 Social History Tobacco Use Types Packs/Day [...] [facility] Suzanne [address] [place] [address] Evan Thompson DO [address] [place], [facility]11 documented as of this encounter Visit Diagnoses Not on filedocumented in this encounter Care Teams Family Consultant Relationship Specialty Start Date End Date Randy Lu MD PCP - General Family Medicine 04/02/23 documented as of this encounter
--- OUTSIDE RECORDS SUMMARY | 2024-11-02 12:00 | XMS_ITS | Encounter Summary ---
Author Organization [employer] [facility] [employer] Address [facility]-[id number] [address] [place] [address] Care Team Providers Care Seafood Clerk Name Role Phone Amy Collier FLAT BREAKDOWN PROCESSOR-MILLER WOOD FLOUR Primary Care Provider + Encounter Details Date Type Department Care Team (Late st Contact Info) Description 02/25/2022 Telephone [facility] Internal [facility] - Family Medicine [address] [place] [address] Radha Tineo MA Social History [...] often do you attend [facility] or adventism services? More than 4 times [...] Answer Date Recorded Total Score 0 02/27/2022 [facility] of Occupat ional [...] Recorded Do you need help finding a [facility] career center and/or a training program? No [...] Travel Start Travel End [place] 09/13/2024 10/26/2024 COVID-19 Exposure Response Date Recorded In the [...] EST Patient notified and understands. Transferred to [facility] to get scheduled for a telehealth. 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
--- OUTSIDE RECORDS SUMMARY | 2024-11-02 12:00 | XMS_ITS | Encounter Summary ---
Author Organization [facility] Address [address] [place] [address] Care Team Providers Care Glue Drier Operator Name Role Phone Randy Lu MD Primary Care Provider Encounter Details Date Type Department Care Team (Late Contact Info) Description 04/19/2024 Abstract [facility] Suzanne DE SOUZA [facility] [place] [address] Evan Thompson DO [facility] [place], [facility]11 Social History Tobacco Use Types Packs/Day [...] [facility] Suzanne DE SOUZA [address] [place] [address] Evan Thompson DO [address] [place], [facility]11 documented as of this encounter Visit Diagnoses Not on filedocumented in this encounter Care Teams Glue Drier Operator Relationship Specialty Start Date End Date Randy Lu MD PCP - General Family Medicine 04/02/23 documented as of this encounter
--- OUTSIDE RECORDS SUMMARY | 2024-11-02 12:00 | XMS_ITS | Encounter Summary ---
Author Organization [employer] Address [id number] [address] [place] [address] Care Team Providers Care Casting And Locker Room Servicer Name Role Phone Amy Collier DEVELOPMENTAL MATHEMATICS INSTRUCTOR-AREA SAFETY MANAGER Primary Care Provider + Reason for Referral * Diagnostic Imaging (Routine) - Pending Review Specialty Diagnoses / Procedures Referred By Contac t Referred To Contact Radiology Diagnoses Pain Procedures NON [facility] PET CT WHOLE BODY [facility] [address] [place] [phone] Phone: tel: fax: Referral ID Status Reason Start Date Expiration Date V isits Requested Visits Authorized [id number] Pending Review 10/25/2024 10/25/2025 1 1 Encounter Details Date Type Department Care Team (Late st Contact Info) Description 10/25/2024 Orders Only [facility] [address] [place] [phone] External, Scanning Provider Pain (Primary Dx) Social History Tobacco Use Types Packs/Day Years Used Date Smoking Tobacco: Never Passive Smoke Exposure: Past Smokeless Tobacco: Never Alcohol Use Standard Drinks/Week Comments Not Currently 0 (1 standard drink = 0.6 oz pur e alcohol) [facility] Utilities Answer Date Recorded In [...] often do you attend chur ch or yazidism services? More than 4 times per year [...] Answer Date Recorded Total Score 0 08/10/2024 [facility] [place] of Occupat ional Health - Occupational Stress [...] Recorded Do you need help finding a [facility] career center and/or a [...] file Travel History Travel Start Travel End [place] 09/13/2024 10/26/2024 documented as of this encounter Plan of Treatment Upcoming Encounters Date Type Department Care Team (Late st Contact Info) Description 11/16/2024 1:30 PM EDT Office Visit [facility] [address] [facility] [address] [place] [address] Marisela Davila, DEVELOPMENTAL MATHEMATICS INSTRUCTOR-AREA SAFETY MANAGER [address], [address] [place] [address] documented as of this encounter Goals Goal Patient Goal Type Associated Problems Recent Progress Patient-Stated? Author return home General Yes Mariah Gonsalez, RN Note: Evaluation of progress towards goal: progressing, patient will return home at discharge/[facility] documented as of this encounter Results * NON [facility] PET CT WHOLE BODY (2024 4:00 PM EDT) us Scanning Provider External IMG PET ORDERABLES Fi nal Result documented in this encounter Visit Diagnoses Diagnosis Pain- Primary Generalized pain documented in this encounter Additional Health Concerns Infection Onset Date Last Indicated Resolved Time MACHINE INKER Comment:LT CHEST WALL TISSUE(08/12/24) 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
--- OUTSIDE RECORDS SUMMARY | 2024-11-02 12:00 | XMS_ITS | Encounter Summary ---
Author Organization [facility] Address [address] [place] [address] Care Team Providers Care Leaf Coverer Name Role Phone Randy Lu MD Primary Care Provider [phone] Encounter Details Date Type Department Care Team (Late Contact Info) Description 06/07/2024 Orders Only [facility] SOU[facility] [address] [place] [address] Nahomy Watson LPN [address] [place] Lidia BENITEZ [facility] Social History Tobacco Use Types Packs/Day Years [...] Office Visit [facility] S[facility] [address] [place] [address] Evan Thompson DO [address] Padmaja Benitez, [facility] documented as of this encounter Procedures Procedure Name Priority Date/Time Associated Diagnosis Comments PAP SMEAR Routine 06/01/2024 12:00 AM EDT documented in this encounter Results * Pap Smear (06/01/2024 12:00 AM EDT) Swab Cervical swab / Unknown Jay Nurse [facility] CYTOLOGY ORDERABLES Final Result EXTERNAL LAB documented in this encounter Visit Diagnoses Not on filedocumented in this encounter Care Teams Leaf Coverer Relationship Specialty Start Date End Date Randy Lu MD PCP - General Family Medicine 04/02/23 documented as of this encounter
--- OUTSIDE RECORDS SUMMARY | 2024-11-02 12:00 | XMS_ITS | Encounter Summary ---
Author Organization [employer] Address [id number] [address] [place] [address] Care Team Providers Care Manager Clinic Name Role Phone Amy Collier EVAPORATOR-PHOTOGRAPHER FINISH Primary Care Provider + Encounter Details Date Type Department Care Team (Late st Contact Info) Description 05/25/2024 [facility] [address] [facility] [address] [place] [address] Shereen Mortensen PA-C [address], [facility] [address] [place] [address] Social History Tobacco Use Types Packs/Day Years Used Date Smoking Tobacco: Never Passive Smoke Exposure: Past Smokeless Tobacco: Never Alcohol Use Standard Drinks/Week Comments Yes 0 (1 standard drink = 0.6 oz pur e alcohol) Socially [facility] Utilities Answer Date Recorded In the past 12 months has [employer], gas, oil, or water [employer] threatened to shut off services in your [...] often do you attend chur ch or advent services? More than 4 times per year [...] Date Recorded Total Score 2 03/30/2024 [facility] - [facility]ational [facility] Questionnaire Answer [...] Recorded Do you need help finding a [facility] and/or a training program? [...] me that she was currently admitted to [facility] with fever and chills. Per patient, [...] provide my number to the social media campaign manager and I can fax the current completed [facility] paperwork to them to submit so that the vac can be delivered to the hospital prior to her discharge. We will plan to schedule her for follow up in the office pending timing of her discharge from [facility]. SHEREEN MORTENSEN PA-C documented in this encounter Plan of Treatment Upcoming Encounters Date Type Department Care Team (Late st Contact Info) Description 11/16/2024 1:30 PM EDT Office Visit [facility] [address] [place] [address] Marisela Davila EVAPORATOR-PHOTOGRAPHER FINISH [address], [address] [place] [address] documented as of this encounter Goals Goal Patient Goal Type Associated Problems Recent Progress Patient-Stated? 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
--- OUTSIDE RECORDS SUMMARY | 2024-11-02 12:00 | XMS_ITS | Clinical Summary ---
Author Organization [facility] Address [address] [place] [address] Care Team Providers Care Property Claim Rep Name Role Phone Randy Lu MD Primary Care Provider [phone]- [phone] Allergies Active Allergy Reactions Criticality Noted Date [...] [facility] Suzanne DE S[facility] [address] [place] [phone] Evan Thompson DO from Last 3 Months [...] Visit [facility] [address] [place] [phone] Evan Thompson DO [address] [place] [address] Health Maintenance Due Date Last Done Comments [...] Narrative 12/27/2021 12:00 PM EDT PERFORMED AT [facility] LOCATION:[id number] Procedure Note CONVERSION, GENERIC - 09/05/2022 PERFORMED AT [facility] LOCATION:[id number] us Bo Melendez MD IMG BI PROCEDURES Final Resul t from Last 3 Months or Most Recently Relevant to Health Maintenance Insurance [employer] MEDICAID Care Teams Property Claim Rep Relationship Specialty Start Date End Date Randy Lu MD PCP - General Family Medicine 04/02/23
--- OUTSIDE RECORDS SUMMARY | 2024-11-02 12:00 | XMS_ITS | Encounter Summary ---
Author Organization [employer] Address [id number] [address] [place] [address] Care Team Providers Care Dry Room Attendant Name Role Phone Amy Collier POLISHER BALANCE SCREWHEAD-IT ENGINEER Primary Care Provider + Reason for Referral * Diagnostic Imaging (Routine) - Pending Review Specialty Diagnoses / Procedures Referred By Contac t Referred To Contact Radiology Diagnoses Pain Procedures NON [facility] PET CT WHOLE BODY [facility] [address] [place] [phone] Phone: tel: fax: Referral ID Status Reason Start Date Expiration Date V isits Requested Visits Authorized [id number] Pending Review 06/12/2024 06/12/2025 1 1 Encounter Details Date Type Department Care Team (Late st Contact Info) Description 06/12/2024 Orders Only [facility] [address] [place] [phone] Transcribe, Orders Support User Pain (Primary [...] file Travel History Travel Start Travel End [place] 09/13/2024 10/26/2024 documented as of this encounter Plan of Treatment Upcoming Encounters Date Type Department Care Team (Late st Contact Info) Description 11/16/2024 1:30 PM EDT Office Visit [facility] [address] [place] [address] Marisela Davila, POLISHER BALANCE SCREWHEAD-IT ENGINEER [address], [address] [facility] [place] [address] documented as of this encounter Goals Goal Patient Goal Type Associated Problems Recent Progress Patient-Stated? Author return home General Yes Mariah Gonsalez, RN Note: Evaluation of progress towards goal: progressing, patient will return home at discharge/follow up [facility] Wound care clinic documented as of this encounter Results * NON [facility] PET CT WHOLE BODY (06/03/2024 11:05 AM EDT) us Scanning Provider External IMG PET ORDERABLES Fi nal Result documented in this encounter Visit Diagnoses Diagnosis Pain- Primary Generalized pain documented in this encounter Additional Health Concerns Infection Onset Date Last Indicated Resolved Time MAINTENANCE MILLWRIGHT Comment:LT CHEST WALL TISSUE(08/12/24) 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
--- OUTSIDE RECORDS SUMMARY | 2024-11-02 12:00 | XMS_ITS | Encounter Summary ---
Author Organization [facility] Address [facility] [place] [id number] [address] [place] [address] Care Team Providers Care Concaving Machine Operator Name Role Phone Amy Collier PATIENT SUPPORT PARTNER-CRIME SCENE TECHNICIAN Primary Care Provider + Encounter Details Date Type Department Care Team (Late st Contact Info) Description 05/23/2024 Orders Only [facility] Internal Medicine - Family Medicine [address] [place] [phone] Ref Prov, [place] [address] Social History Tobacco Use Types Packs/Day Years [...] Recorded Total Score 2 03/30/2024 [facility] of Occupat ional Health - Occupational [...] Recorded Do you need help finding a [facility] and/or a training [...] file Travel History Travel Start Travel End [place] 09/13/2024 10/26/2024 documented as of this encounter Plan of Treatment Upcoming Encounters Date Type Department Care Team (Late st Contact Info) Description 11/16/2024 1:30 PM EDT Office Visit [facility] [address] [facility] [address] [place] [address] Marisela Davila, PATIENT SUPPORT PARTNER-CRIME SCENE TECHNICIAN [address], [address] [place] [address] documented as of this encounter Goals Goal Patient Goal Type Associated Problems Recent Progress Patient-Stated? 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
--- OUTSIDE RECORDS SUMMARY | 2024-11-02 12:00 | XMS_ITS | Encounter Summary ---
Author Organization [facility] [employer] [employer] [facility] Address [id number] [address] [place] [address] Care Team Providers Care Air Traffic Control Supervisor Name Role Phone Amy Collier MEDICAL MALPRACTICE PARALEGAL-INVOICING MACHINE OPERATOR Primary Care Provider + Encounter Details Date Type Department Care Team (Late st Contact Info) Description 06/03/2024 Orders Only [facility] Internal Medicine - Family Medicine [address] [place] [phone] Ref Prov, [place] [address] Social History Tobacco Use Types Packs/Day Years [...] Answer Date Recorded Total Score 2 03/30/2024 [facility] of Occupat ional [...] Do you need help finding a [facility] and/or a training program? [...] Plastic and Reconstructive Surgery [address] [facility] [address] [place] [address] Marisela Davila, MEDICAL MALPRACTICE PARALEGAL-INVOICING MACHINE OPERATOR [address], [facility] [address] [place] [address] documented as of this encounter Goals Goal [...] OR DERABLES Final Result MANUALLY TRANSCRIBED RESULTS * Blood Culture (05/22/2024 11:18 AM EDT) Blood us Not In System Ref Prov MICROBIOLOGY - GENERAL OR DERABLES Final Result Performing Organization Address [facility] de Phone Number MANUALLY TRANSCRIBED RESULTS * Blood Culture (05/22/2024 11:17 AM EDT) Blood us Not In System Ref Prov MICROBIOLOGY - GENERAL OR DERABLES Final Result Performing Organization Address [facility] de Phone Number MANUALLY TRANSCRIBED RESULTS * Blood Culture (05/22/2024 11:15 AM EDT) Blood us Not In System Ref Prov MICROBIOLOGY - GENERAL OR DERABLES Final Result Performing Organization Address [facility] de Phone Number MANUALLY TRANSCRIBED RESULTS documented in this encounter Visit Diagnoses Not on filedocumented in this encounter Additional Health Concerns Infection Onset Date Last Indicated Resolved Time CFA Comment:LT CHEST WALL TISSUE(08/12/24) 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
--- OUTSIDE RECORDS SUMMARY | 2024-11-02 12:00 | XMS_ITS | Encounter Summary ---
Author Organization [facility] Address [facility] [id number] [address] [place] [address] Care Team Providers Care Newspaper Photo Editor Name Role Phone Amy Collier COMPRESSOR OPERATOR ADJUSTER-TEACHER EMOTIONALLY IMPAIRED Primary Care Provider + Encounter Details Date Type Department Care Team (Late st Contact Info) Description 05/27/2024 Orders Only [facility] Internal Medicine - Family Medicine [address] [place] [phone] Ref Prov, [place] [address] Social History Tobacco Use Types Packs/Day Years [...] Answer Date Recorded Total Score 2 03/30/2024 [facility] of Occupat ional Health [...] [address] [facility] [address] [place] [address] Marisela Davila, COMPRESSOR OPERATOR ADJUSTER-TEACHER EMOTIONALLY IMPAIRED [address], [facility] [address] [place] [address] documented as of this encounter Goals Goal [...] Infection Onset Date Last Indicated Resolved Time BISCUIT PACKER Comment:LT CHEST WALL TISSUE(08/12/24) 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
--- OUTSIDE RECORDS SUMMARY | 2024-11-02 12:00 | XMS_ITS | Encounter Summary ---
Author Organization [facility] Address [address] [place] [address] Care Team Providers Care Railway Signal Operator Name Role Phone Randy Lu MD Primary Care Provider +1 [phone] Encounter Details Date Type Department Care Team (Late Contact Info) Description 04/07/2024 Abstract [facility]anne DE SOUZA [facility] [place] [address] Evan Thompson DO [facility] [place], [facility] Social History Tobacco Use Types Packs/Day [...] [place] [address] Evan Thompson DO [address] [place], [facility] documented as of this encounter Visit Diagnoses Not on filedocumented in this encounter Care Teams Railway Signal Operator Relationship Specialty Start Date End Date Randy Lu MD PCP - General Family Medicine 04/02/23 documented as of this encounter
--- OUTSIDE RECORDS SUMMARY | 2024-11-02 12:00 | XMS_ITS | Encounter Summary ---
Author Organization [employer] Address [id number] [address] [place] [address] Care Team Providers Care Shop Laborer Name Role Phone Amy Collier ORGANIZATIONAL DEVELOPMENT CONSULTANT-METHODS TIME ANALYST Primary Care Provider + Reason for Referral * Diagnostic Imaging (Routine) - Pending Review Specialty Diagnoses / Procedures Referred By Contac t Referred To Contact Radiology Diagnoses Pain Procedures CT abdomen and pelvis with contrast [facility] [address] [place] [phone] Phone: tel: fax: Referral ID Status Reason Start Date Expiration Date V isits Requested Visits Authorized [id number] Pending Review 06/13/2024 06/13/2025 1 1 * Diagnostic Imaging (Routine) - Pending Review Specialty Diagnoses / Procedures Referred By Contac t Referred To Contact Radiology Diagnoses Pain Procedures CT chest with contrast [facility] [address] [place] [phone] Phone: tel: fax: Referral ID Status Reason Start Date Expiration Date V isits Requested Visits Authorized [id number] Pending Review 06/13/2024 06/13/2025 1 1 Encounter Details Date Type Department Care Team ([facility] st Contact Info) Description 06/13/2024 Orders Only [facility] [address] [place] [phone] Transcribe, Orders Support User Pain (Primary Dx) Social History Tobacco Use Types Packs/Day Years Used Date Smoking Tobacco: Never Passive Smoke Exposure: Past Smokeless Tobacco: Never Alcohol Use Standard Drinks/Week Comments Yes 0 (1 standard drink = 0.6 oz pur e alcohol) Socially [facility] Utilities Answer Date Recorded In the [...] week 02/27/2022 How often do you attend [facility] or caodaism services? More than 4 times per year [...] Answer Date Recorded Total Score 2 03/30/2024 [facility] [place] of Occupat ional Health - Occupational [...] need help finding a [facility] Ad[employer] center and/or a training program? 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
--- OUTSIDE RECORDS SUMMARY | 2024-11-02 12:00 | XMS_ITS | Encounter Summary ---
Author Organization [employer] tem Address [facility]-[id number] [address] [place] [address] Care Team Providers Care Adding Machine Operator Name Role Phone Amy Collier CONTENT MANAGER-LIDDER Primary Care Provider + Encounter Details Date Type Department Care Team (Late st Contact Info) Description 11/01/2024 Telephone [facility] Surgical Oncology [address] [facility] [address] [place] [address] Shanice Johnson RN Social History Tobacco Use Types Packs/Day Years Used Date Smoking Tobacco: Never Passive Smoke Exposure: Past Smokeless Tobacco: Never Alcohol Use Standard Drinks/Week Comments Not Currently 0 (1 standard drink = 0.6 oz pur e alcohol) [facility] Utilities Answer Date Recorded In the past 12 months has dateIITians electric, gas, oil, or water company threatened [...] Answer Date Recorded Total Score 0 08/10/2024 [facility] [place] of Occupat ional Health - Occupational Stress [...] file Travel History Travel Start Travel End [place] 09/13/2024 10/26/2024 documented as of this encounter Miscellaneous Notes * Telephone Encounter - Shanice Johnson RN - 11/01/2024 9:24 AM EDT Received call from Jared in microbiology. Patient has +AFB tissue culture: 10/12/2024 CULTURE RESULTS NO GROWTH 3 DAYS CULTURE RESULTS NO GROWTH 5 DAYS CULTURE RESULTS Mycobacterium abscessus ! (P) GRAM STAIN 0 White Blood Cells/LPF GRAM STAIN 0 Squamous Epithelial Cells/LPF GRAM STAIN No organisms seen Legend: ! Abnormal (P) Preliminary documented in this encounter Plan of Treatment Upcoming Encounters Date Type Department Care Team (Late st Contact Info) Description 11/16/2024 1:30 PM EDT Office Visit [facility] Plastic and [facility]ive [facility] [address] [facility] [address] [place] [address] Marisela Davila, CONTENT MANAGER-LIDDER [address], [address] [place] [address] documented as of this encounter Goals Goal Patient Goal Type Associated Problems Recent Progress Patient-Stated? 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
--- OUTSIDE RECORDS SUMMARY | 2024-11-02 12:00 | XMS_ITS | Clinical Summary ---
Author Organization [facility] Address [address] [place] [address] Phone Care Team Providers Care Authors Motivational Name Role Phone Randy Lu Primary Care [...] quadrivalent 11/30,01/19/2017,01/07/2016,2014,01/05/2014 Influenza, seasonal, injectable 11/14/2019,12/13,12/29/2012 Novel [id number], preservative-free 01/17/2009 Tdap vaccine, age 7 year [...] patient's age to complete this topic Insurance [facility] PLAN [facility] PLAN Care Teams Authors Motivational Relationship Specialty Start Date End Date Randy Lu DO PCP - General 07/21/22
--- OUTSIDE RECORDS SUMMARY | 2024-11-02 12:00 | XMS_ITS | Encounter Summary ---
Author Organization [facility] Address [facility] [place] [address] Care Team Providers Care Senior C Web Developer Name Role Phone Nilda Carolina RICHTER Unavailable Jessica Hope MD Unavailable [phone] Lynda Manuel GERMINATION WORKER Primary Care Provider [phone] Shereen Smallwood PA-C Unavailable [phone] Radha Martinez RN Unavailable Amy Collier CHEMISTRY INSTRUCTOR Primary Care Provider [phone] Source Comments In the event this information is protected by the Federal Confidentiality of Alcohol and Drug AbusePatient Records regulations: The Federal rules restrict any use of the information to criminally investigate or prosecute any alcohol or drug abuse patient.[facility] Encounter Details Date Type Department Care Team (Late st Contact Info) Description 07/22/2024 Lab Requisition [facility] [place] [address] [place] [address] [place] [address] Person encountering health services to [...] lower risk 7 07/21/2024 Data from: [email or web address] Last address used for calculation [...] AM EDT Appointment [facility] Radiology MRI [address] [place] [address] With Perfusion 12/01/2024 2:00 PM EDT [facility] [address] [place] [address] Carlos Mccain DO, PhD [address] [facility] [address] [place] [address] Established patient Visit with Dr. Mccain for [...] EDT) Case Report Surgical Pathology Report Case: [id number] Authorizing Provider: Aurelia Oneill MD Collected: 07/22/2024 03:52 PM Ordering Location: [facility] Main Received: 07/22/2024 03:51 PM [facility] Laboratory Pathologist: Michael López MD Specimen: Slide(s), 11 SLIDES [id number] 08/09/2024 9:01 AM EDT [facility] FINAL DIAGNOSIS Liver mass, biopsy: - Adenocarcinoma, compatible with breast origin. 08/09/2024 9:01 AM EDT [facility] at 1337 EDT Diagnosis Comment Tumor cells are positive for CK7 and GATA3, with weak expression for ER. Negative stains include CK19, KY, and CDX2. 08/09/2024 9:01 AM EDT [facility] Performing Lab Diagnostic interpretation performed at: [facility], [address] [place] [address], [place] [address] CLIA# [id number] Enamel Drier: Derick Meadows MD 08/09/2024 9:01 AM EDT [facility] Addendum Breast biomarkers (ER, PgR, and HER2) performed at the outside institution are available for review at the [facility] and demonstrate the tumor cells to be positive for ER (30% nuclear staining of tumor cells with moderate staining intensity), negative for KY (<1% nuclear staining of tumor cells), and negative for HER2 (score of 1+). [facility] 08/09/24 08/09/2024 9:01 AM EDT [facility] Addendum electronically signed by Kev Kang MD on 08/09/2024 at 0901 EDT Disclaimer Laboratory Developed Test (LDT) Disclaimer: Performance characteristics of immunohistochemica l, immunofluorescent, and chromogenic in-situ hybridization tests have been determined by the performing laboratory within [facility]'s [facility] Pathology and Laboratory Medicine Department ([facility], [facility], [facility], [facility], [facility], [facility], or [facility]) in a manner consistent with CLIA requirements. One or more of these tests may not have been cleared or approved by the FDA. RT-PLM is regulated under CLIA as qualified to perform high-complexity testing. These tests are used for clinical purposes. These should not be regarded as investigational or for research. Positive and negative controls stain appropriately. 08/09/2024 9:01 AM EDT [facility] Blocks or Slides MICROSCOPE SLIDE / Unknown 07/22/2024 3:52 PM EDT 07/22/2024 3:51 PM EDT us Aurelia Oneill MD SURGICAL PATHOLOGY Edited Result - Final [facility] [address] [facility] [address] [place] [address], documented in this encounter Visit Diagnoses Diagnosis Person encountering health services to consult on behalf of another person Other person consulting on behalf of another person documented in this encounter Care Teams Senior C Web Developer Relationship Specialty Start Date End Date Lynda Manuel CNP [address] [place] [address] PCP - General Family Medicine 06/14/24 09/26/24 Amy Collier, MONICA [address] [place] [address] PCP - General Family Medicine 09/27/24 Carolina Munguia APRN [address] [facility] [address] [place] [address] 12/04/23 Jessica Hope MD [address] [place] [address] Referring Hematology/Oncology 06/14/24 Shereen Smallwood PA-C [address] [facility] [address] [place] [address] [facility] Referring Orthopedics 06/15/24 [place] [address] [place] [address] Specialty Senior Client Advisor Hematology/Oncology 07/31/24 documented as of this encounter
--- OUTSIDE RECORDS SUMMARY | 2024-11-02 12:00 | XMS_ITS | Encounter Summary ---
Author Organization [facility] [facility] Address [facility]-[id number] [address] [place] [address] Care Team Providers Care Office Chair Assembler Name Role Phone Amy Collier EQUIPMENT OPERATOR WAREHOUSE-INSURANCE SALESMAN Primary Care Provider + Reason for Visit * Reason Comments Med Refill Encounter Details Date Type Department Care Team (Late st Contact Info) Description 04/28/2022 Refill [facility] Internal Medicine - Family Medicine [address] [place] [address] [facility] [address] [place] [address] Social History Tobacco Use Types Packs/Day Years [...] Answer Date Recorded Total Score 0 03/07/2022 [facility] [place] of Occupat ional Health - Occupational Stress [...] and Reconstructive Surgery [address] [place] [address] Marisela Davila APRN-CNP [address] [place] [address] documented as of this encounter Visit Diagnoses Not on filedocumented in this encounter Additional Health Concerns Infection Onset Date Last Indicated Resolved Time ARMORED CAR DRIVER Comment:LT CHEST WALL TISSUE(08/12/24) 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
--- OUTSIDE RECORDS SUMMARY | 2024-11-02 12:00 | XMS_ITS | Encounter Summary ---
Author Organization [facility] Address [facility] [place] [address] Care Team Providers Care Portfolio Accountant Name Role Phone Nilda Carolina RICHTER Unavailable [phone] Jessica Hope MD Unavailable [phone] Lynda Manuel FREEDOM OF INFORMATION OFFICER Primary Care Provider [phone] Shereen Smallwood PA-C Unavailable [phone] Radha Martinez RN Unavailable Amy Collier MALT LIQUORS SALES SUPERVISOR Primary Care Provider [phone] Source Comments In the event this information is protected by the Federal Confidentiality of Alcohol and Drug AbusePatient Records regulations: The Federal rules restrict any use of the information to criminally investigate or prosecute any alcohol or drug abuse patient.[facility] Encounter Details Date Type Department Care Team (Late st Contact Info) Description 05/31/2024 Lab Requisition [facility] [address] [place] [address] Jessica Hope MD [address] [place] [address] Person encountering health services to consult [...] Info) Description 11/29/2024 10:20 AM EDT Appointment [facility] Radiology MRI [address] [facility] [place] [address] With Perfusion 12/01/2024 2:00 PM EDT [facility] [address] [place] [address] Carlos Mccain DO, PhD [address] [facility] [address] [place] [address] Established patient Visit with Dr. Mccain for [...] Case Report Bone Marrow Pathology Report Case: [id number] Authorizing Provider: Jessica Hope MD Collected: 05/31/2024 09:19 PM Ordering Location: [facility] Received: 05/31/2024 09:20 PM [facility] Pathologist: Deidre Avelar MD, PhD Specimen: Slide(s), 13 SLIDES [id number] 06/12/2024 11:59 AM EDT [facility] FINAL DIAGNOSIS A. Outside materials received from [facility], [place], [place] (External ID [id number], 05/12/2024) Bone marrow aspirate smears, touch imprints, core biopsy and clot section: -Cellular bone marrow with maturing trilineage hematopoiesis and increased ring sideroblasts. -Increased storage iron. -See comment. Peripheral blood smear: -Pancytopenia [facility] June 11, 2024 06/12/2024 11:59 AM EDT [facility] at 1159 EDT Diagnosis Comment Thank [...] Linezolid is associated with ring sideroblasts (PMID: [id number]) and may cause bone marrow suppression. Tedezolid is in the same class, although may be associated with less bone marrow suppression (PMID: [id number]). Overall, given the absence of evidence of clonal hematopoeisis, interval resampling following completion of the the antibiotic course may be helpful to further clarify, if cytopenias persist. Please do not hesitate to contact the Hematopathology Consult Service at [phone] for any questions or if additional follow-up information becomes available. 06/12/2024 11:59 AM EDT [facility] Microscopic Description PERIPHERAL BLOOD: CBC (05/12/2024) [...] lobation. Other: Additional stains are performed at [facility] to further clarify the morphologic findings. [...] Performed. 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 06/12/2024 11:59 AM EDT [facility] Clinical History CONSULT REQUESTED 06/12/2024 11:59 AM EDT [facility] Performing Lab Diagnostic interpretation performed at: [facility], [address] [place] [address], [place] [address] CLIA# [id number] Assistant Produce Manager: Derick Meadows MD 06/12/2024 11:59 AM EDT [facility] Disclaimer Laboratory Developed Test (LDT) Disclaimer: Performance characteristics of immunohistochemica l, immunofluorescent, and chromogenic in-situ hybridization tests have been determined by the performing laboratory within [facility]'s [facility] Pathology and Laboratory Medicine Department ([facility], [facility], [facility], [facility], [facility], [facility], or [facility]) in a manner consistent with CLIA requirements. One or more of these tests may not have been cleared or approved by the FDA. RT-PLM is regulated under CLIA as qualified to perform high-complexity testing. These tests are used for clinical purposes. These should not be regarded as investigational or for research. Positive and negative controls stain appropriately. 06/12/2024 11:59 AM EDT [facility] Blocks or Slides MICROSCOPE SLIDE / Unknown 05/31/2024 9:19 PM EDT 05/31/2024 9:20 PM EDT us Jessica Hope MD SURGICAL PATHOLOGY Final Resul t [facility] [address] [place] [address], documented in this encounter Visit Diagnoses Diagnosis Person encountering health services to consult on behalf of another person Other person consulting on behalf of another person documented in this encounter Care Teams Portfolio Accountant Relationship Specialty Start Date End Date Lynda Manuel, FREEDOM OF INFORMATION OFFICER [address] [place] [address] PCP - General Family Medicine 06/14/24 09/26/24 Amy Collier, MONICA [address] [place] [address] PCP - General Family Medicine 09/27/24 Carolina Munguia APRN [address] [facility] [address] [address] 12/04/23 Jessica Hope MD [address] [place] [address] Referring Hematology/Oncology 06/14/24 Shereen Smallwood PA-C [address] [facility] [address] [place] [address] [facility] Referring Orthopedics 06/15/24 [place] [address] [place] [address] Technician Hematology/Oncology 07/31/24 documented as of this encounter
--- OUTSIDE RECORDS SUMMARY | 2024-11-02 12:00 | XMS_ITS | Encounter Summary ---
Author Organization [employer] Address [facility]-[id number] [address] [place] [address] Care Team Providers Care Dispatcher Tugboat Name Role Phone Amy Collier PRODUCT DEVELOPMENT SPECIALIST-CONTROL CHEMIST Primary Care Provider + Encounter Details Date Type Department Care Team (Late st Contact Info) Description 09/16/2024 Telephone [facility] [address] [facility] [address] [place] [address] Irvin Apodaca MA Social History Tobacco Use Types Packs/Day Years Used Date Smoking Tobacco: Never Passive Smoke Exposure: Past Smokeless Tobacco: Never Alcohol Use Standard Drinks/Week Comments Not Currently 0 (1 standard drink = 0.6 oz pur e alcohol) [facility] Utilities Answer Date Recorded In the past 12 months has enrich-in electric, gas, oil, or water company threatened [...] Date Recorded Total Score 0 08/10/2024 [facility] of Occupat ional Health - Occupational [...] Recorded Do you need help finding a [facility] and/or a training program? [...] file Travel History Travel Start Travel End [place] 09/13/2024 10/26/2024 documented as of this encounter Miscellaneous Notes * Telephone Encounter - Irvin Apodaca MA - 09/16/2024 9:49 AM EDT Patient had appt with [facility] Hematology/Oncology today 09/16. She wanted to make [...] Reconstructive Surgery [address] [place] [address] Marisela Davila APRN-CNP [address] [place] [address] documented as of this encounter Goals Goal Patient Goal Type Associated Problems Recent Progress Patient-Stated? 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
--- OUTSIDE RECORDS SUMMARY | 2024-11-02 12:00 | XMS_ITS | Encounter Summary ---
Author Organization [employer] Address [facility][id number] [address] [place] [address] Care Team Providers Care Instructor Of Sociology Name Role Phone Amy Collier RN CLINICIAN-UNMANNED EQUIPMENT OPERATOR Primary Care Provider + Reason for Visit * Reason Comments Med Refill Encounter Details Date Type Department Care Team (Late st Contact Info) Description 01/24/2022 Refill [facility] Internal Medicine - Family Medicine [address] [place] [id number] Lynda Manuel, RN CLINICIAN-THERMODYNAMIC PHYSICIST [address] [facility] [place] [address] Social History Tobacco Use Types Packs/Day Years [...] Department Care Team (Late Contact Info) Description 11/16/2024 1:30 PM EDT Office Visit [facility] [address] [facility] [address] [place] [address] Marisela Davila, RN CLINICIAN-UNMANNED EQUIPMENT OPERATOR [address], [facility] [address] [place] [address] documented as of this encounter Visit Diagnoses Not on filedocumented in this encounter Additional Health Concerns Infection Onset Date Last Indicated Resolved Time Influenza 03/07/2022 03/07/2022 03/14/2022 11:1 2 PM EST WEB MERCHANDISER Comment:LT CHEST WALL TISSUE(08/12/24) 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
--- OUTSIDE RECORDS SUMMARY | 2024-11-02 12:00 | XMS_ITS | Encounter Summary ---
Author Organization [employer] Address [id number] [address] [place] [address] Care Team Providers Care Demand Planning Analyst Name Role Phone Amy Collier IMAGING ANALYST-CAR FERRIER Primary Care Provider + Encounter Details Date Type Department Care Team (Latest Contact Info) Description 10/26/2024 Travel Social History Tobacco Use Types Packs/Day Years Used Date Smoking Tobacco: Never Passive Smoke Exposure: Past Smokeless Tobacco: Never Alcohol Use Standard Drinks/Week Comments Not Currently 0 (1 standard drink = 0.6 oz pur e alcohol) [facility] Utilities Answer Date Recorded In the past 12 months has [employer] electric, gas, oil, or water company threatened [...] 02/27/2022 How often do you attend [facility] or m[facility]on services? More than 4 times [...] Answer Date Recorded Total Score 0 08/10/2024 [facility] of Occupat ional Health - [...] [facility] [address] [place] [address] Marisela Davila, IMAGING ANALYST-CAR FERRIER [address], [facility] [address] [place] [address] documented as of this encounter Goals Goal Patient Goal Type Associated Problems Recent Progress Patient-Stated? 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
--- OUTSIDE RECORDS SUMMARY | 2024-11-02 12:00 | XMS_ITS | Encounter Summary ---
Author Organization [facility] [employer] Sys tem Address [facility] [place][id number] [address] [place] [address] Care Team Providers Care Product Tester Name Role Phone Amy Collier MUSEUM PREPARATOR-HORSE STUD WORKER Primary Care Provider + Encounter Details Date Type Department Care Team (Late st Contact Info) Description 06/13/2024 Orders Only [facility] Internal Medicine - Family Medicine [address] [place] [phone] Ref Prov, [place] [address] Social History Tobacco Use Types Packs/Day Years [...] Answer Date Recorded Total Score 2 03/30/2024 [facility] of Occupat ional Health - Occupational Stress [...] Recorded Do you need help finding a [facility] and/or a training program? 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
--- OUTSIDE RECORDS SUMMARY | 2024-11-02 12:00 | XMS_ITS | Encounter Summary ---
Author Organization [facility] tem Address [id number] [address] [place] [address] Care Team Providers Care Legal Services Professional Name Role Phone Amy Collier ENTRY LEVEL ELECTRICIAN-CATERING CHEF Primary Care Provider + Encounter Details Date Type Department Care Team (Late Contact Info) Description 12/26/2021 Orders Only [facility] Family Medicine [address] [facility] [place] [phone] Ref Prov, [place] [address] Social History Tobacco Use Types Packs/Day Years [...] Travel Start Travel End [place] 09/13/2024 10/26/2024 COVID-19 Exposure Response Date Recorded [...] Physicians Plastic and Reconstructive Surgery [address] [facility] [address] [place] [address] Marisela Davila, ENTRY LEVEL ELECTRICIAN-CATERING CHEF [address] , 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
--- OUTSIDE RECORDS SUMMARY | 2024-11-02 12:00 | XMS_ITS | Encounter Summary ---
Author Organization [facility] Address [facility] [place][id number] [address] [place] [address] Care Team Prov[address] Care [address] Mechanical Engineer Name Role Phone Amy Collier PARALLEL COMPUTING SOFTWARE ENGINEER-FILM WASHER Primary Care Provider + Encounter Details Date Type Department Care Team (Late st Contact Info) Description 03/07/2022 Orders Only [facility] Internal Medicine - Family Medicine [address] [place] [phone] Amy Collier APRN-FILM WASHER [address] [place] [address] Social History Tobacco Use Types Packs/Day Years [...] Answer Date Recorded Total Score 0 03/07/2022 [facility] of Occupat ional Health - Occupational Stress [...] file Travel History Travel Start Travel End [place] 09/13/2024 10/26/2024 COVID-19 Exposure Response Date Recorded [...] Reconstructive Surgery [address] [place] [address] Marisela Davila APRN-CNP [address], [address] [place] [address] documented as of this encounter Procedures Procedure Name Priority Date/Time Associated Diagnosis Comments HOME NEBULIZER Routine 03/07/2022 documented in this encounter Results * Home Nebulizer (03/07/2022) Amy LINDQUIST DME ORDERABLES Final Re sult MANUALLY TRANSCRIBED RESULTS documented in this encounter Visit Diagnoses Not on filedocumented in this encounter Additional Health Concerns Infection Onset Date Last Indicated Resolved Time Influenza 03/07/2022 03/07/2022 03/14/2022 11:1 2 PM EST BLASTING CLAY MINER Comment:LT CHEST WALL TISSUE(08/12/24) 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
--- OUTSIDE RECORDS SUMMARY | 2024-11-02 12:00 | XMS_ITS | Encounter Summary ---
Author Organization [employer] Sys tem Address [facility] [id number] [address] [place] [address] Care Team Providers Care Superintendent Stations Name Role Phone Amy Collier SQE-OPHTHALMIC PHOTOGRAPHER Primary Care Provider + Encounter Details Date Type Department Care Team (Late st Contact Info) Description 11/27/2021 Orders Only [facility] Internal Medicine - Family Medicine [address] [place] [address] Nat Javed CMA Social History [...] file Travel History Travel Start Travel End [place] 09/13/2024 10/26/2024 COVID-19 Exposure Response Date Recorded [...] Physicians Plastic and Reconstructive Surgery [address] [facility] [address] [place] [phone] Marisela Davila, SQE-OPHTHALMIC PHOTOGRAPHER [address], [facility] [address] [place] [address] documented as of this encounter Visit Diagnoses Not on filedocumented in this encounter Additional Health Concerns Infection Onset Date Last Indicated Resolved Time Influenza 03/07/2022 03/07/2022 03/14/2022 11:1 2 PM EST X RAY INSPECTOR Comment:LT CHEST WALL TISSUE(08/12/24) 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
--- OUTSIDE RECORDS SUMMARY | 2024-11-02 12:00 | XMS_ITS | Encounter Summary ---
Author Organization [employer] [facility] Sys tem Address [facility] [id number] [address] [place] [address] Care Team Providers Care Ribbon Hanking Machine Operator Name Role Phone Amy Collier PROM BURN OFF OPERATOR-LEAN PROCESS DEPLOYMENT CONSULTANT Primary Care Provider + Reason for Referral * Misc (Routine) - Closed Specialty Diagnoses / Procedures Referred By Contac t Referred To Contact Diagnoses Malignant neoplasm of lower-inner quadrant of right breast of female, estrogen receptor positive (CMS-HCC) Procedures Follow anesthesia guideines Christy He MD [address] [place] [phone] Phone: tel: fax: Referral ID Status Reason Start Date Expiration Date Visits Re quested Visits Authorized [id number] Closed 10/02/2023 10/01/2024 1 1 Encounter Details Date Type Department Care Team (Late st Contact Info) Description 10/02/2023 Orders Only [facility] Surgical Oncology [address] [place] [phone] Christy He MD [address] [place] [phone] Malignant neoplasm of lower-inner quadrant of [...] Answer Date Recorded Total Score 0 03/07/2022 [facility] of Occupat ional [...] Travel History Travel Start Travel End [place] 09/13/2024 10/26/2024 documented as of this encounter Plan of Treatment Upcoming Encounters Date Type Department Care Team (Late st Contact Info) Description 11/16/2024 1:30 PM EDT Office Visit [facility] [address] [facility] [address] [place] [address] Marisela Davila, PROM BURN OFF OPERATOR-LEAN PROCESS DEPLOYMENT CONSULTANT [address], [facility] [address] [place] [address] Scheduled Orders Name Type Priority Associated Diagnoses Orde r Schedule Mammography specimen films right Imaging Routine Malignant neoplasm of lower-inner quadrant of right breast of female, estrogen receptor positive ([facility]-HCC) 1 Occurrences starting 10/02/2023 until 10/01/2024 documented as of this encounter Results * Ultrasound guided localization breast initial right (10/16/2023 2:08 PM EDT) Anatomical Region Laterality Modality Breast Right Ultrasound 10/16/2023 2:27 PM EDT Narrative 10/16/2023 2:32 PM EDT YASMIN FLANNERY 1970 [id number], [id number] EXAM: MAMM POST BX DIAG UNI RT, [...] Miller MD - 10/16/2023 YASMIN FLANNERY 1970 [id number], [id number] EXAM: MAMM POST BX DIAG UNI RT, [...] on 10/16/2023 2:32 PM 2000 us Christy eH MD IMG US ORDERABLES Final Resul t documented in this encounter Visit Diagnoses Diagnosis Malignant neoplasm of lower-inner quadrant of right breast of female, estrogen receptor positive (CMS-HCC)- Primary Malignant neoplasm of lower-inner quadrant of right breast of female, estrogen receptor positive (CMS-HCC) documented in this encounter Additional Health Concerns Infection Onset Date Last Indicated Resolved Time RETAIL POS SPECIALIST Comment:LT CHEST WALL TISSUE(08/12/24) 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
--- OUTSIDE RECORDS SUMMARY | 2024-11-02 12:00 | XMS_ITS | Encounter Summary ---
Author Organization [facility] Address [facility] [id number] [address] [place] [address] Care Team Providers Care Kiln Burner Name Role Phone Amy Collier COLOR ARTIST-PRESS OPERATOR Primary Care Provider + Encounter Details Date Type Department Care Team (Late st Contact Info) Description 05/24/2024 Orders Only [facility] Internal Medicine - Family Medicine [address] [place] [phone] Ref Prov, [place] [address] Social History Tobacco Use Types Packs/Day Years [...] Answer Date Recorded Total Score 2 03/30/2024 [facility] of Occupat ional Health [...] help finding a [facility] and/or a training [...] [address] [facility] [address] [place] [address] Marisela Davila, COLOR ARTIST-PRESS OPERATOR [address], [address] [place] [phone] documented as of this encounter Goals Goal [...] Infection Onset Date Last Indicated Resolved Time LIFE INSURANCE ACTUARY Comment:LT CHEST WALL TISSUE(08/12/24) 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
--- OUTSIDE RECORDS SUMMARY | 2024-11-02 12:00 | XMS_ITS | Encounter Summary ---
Author Organization [facility] Address [facility]-[id number] [address] [place] [address] Care Team Providers Care Nurse Consultant Name Role Phone Amy Collier DIRECTOR OF RESOURCE DEVELOPMENT-VARNISH MAKER Primary Care Provider + Encounter Details Date Type Department Care Team (Late st Contact Info) Description 11/25/2023 Orders Only [facility] Plastic [facility] Re[facility]ive [facility] [address] [facility] [address] [place] [address] Marisela Davila, DIRECTOR OF RESOURCE DEVELOPMENTBENJAMIN [facility] [address], [address] [place] [address] Social History Tobacco Use Types Packs/Day Years Used Date Smoking Tobacco: Never Smokeless Tobacco: Never Alcohol Use Standard Drinks/Week Comments Yes 0 (1 standard drink = 0.6 oz pur e alcohol) Socially [facility] Utilities Answer Date Recorded In the past 12 months has itembase, gas, oil, or water [employer] threatened to shut off services in your [...] often do you attend chur ch or uatsdin services? More than 4 times [...] Answer Date Recorded Total Score 0 03/07/2022 [facility] of Occupat ional Health [...] Recorded Do you need help finding a [facility] career center and/or a training program? No [...] [address] [facility] [address] 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
--- OUTSIDE RECORDS SUMMARY | 2024-11-02 12:00 | XMS_ITS | Encounter Summary ---
Author Organization [facility] Address [address] [place] [address] Care Team Providers Care Room Service Food Service Attendant Name Role Phone Randy Lu MD Primary Care Provider [phone] Encounter Details Date Type Department Care Team (Late Contact Info) Description 04/07/2024 Abstract [facility] Suzanne DE SOUZA [facility] [place] [address] Evan Thompson DO [facility] [place], [facility] Social History Tobacco Use Types Packs/Day [...] [facility] Suzanne DE SOUZA [address] [place] [address] Evan Thompson DO [address] [place], [facility] documented as of this encounter Visit Diagnoses Not on filedocumented in this encounter Care Teams Room Service Food Service Attendant Relationship Specialty Start Date End Date Randy Lu MD PCP - General Family Medicine 04/02/23 documented as of this encounter
--- OUTSIDE RECORDS SUMMARY | 2024-11-02 12:01 | XMS_ITS | Encounter Summary ---
Author Organization [facility] Address [facility] [id number] [address] [place] [address] Care Team Providers Care Police Inspector Name Role Phone Amy Collier ART GLASS DESIGNER-BI SOLUTIONS ARCHITECT Primary Care Provider + Encounter Details Date Type Department Care Team (Late st Contact Info) Description 03/23/2023 Orders Only [facility] Internal Medicine - Family Medicine [address] [place] [address] Nat Javed CMA Abnormal mammogram [...] Recorded Do you need help finding a [facility] career center and/or a training program? No [...] file Travel History Travel Start Travel End [place] 09/13/2024 10/26/2024 documented as of this encounter Plan of Treatment Upcoming Encounters Date Type Department Care Team (Late st Contact Info) Description 11/16/2024 1:30 PM EDT Office Visit [facility] [address] [place] [address] Marisela Davila APRN-BI SOLUTIONS ARCHITECT [address], [address] [place] [address] documented as of this encounter Procedures Procedure Name Priority Date/Time Associated Diagnosis Comments US BREAST RT LIMITED Routine 03/20/2023 Abnormal mammogram of right breast documented in this encounter Results * Ultrasound breast limited right (03/20/2023) Anatomical Region Laterality Modality Breast Right Ultrasound 03/20/2023 us Amy Collier APRN-ESPERANZA IM US ORDERABLES Final Result documented in this encounter Visit Diagnoses Diagnosis Abnormal mammogram of right breast documented in this encounter Additional Health Concerns Infection Onset Date Last Indicated Resolved Time CABLEWAY OPERATOR Comment:LT CHEST WALL TISSUE(08/12/24) 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
--- OUTSIDE RECORDS SUMMARY | 2024-11-02 12:01 | XMS_ITS | Encounter Summary ---
Author Organization [employer] Sys tem Address [id number] [address] [place] [address] Care Team Providers Care Welcome Hostess Name Role Phone Amy Collier INSIDE SALES ENGINEER-ASSOCIATE PROFESSOR OF ENGLISH Primary Care Provider + Encounter Details Date Type Department Care Team (Late st Contact Info) Description 10/15/2023 Orders Only [facility] On[facility] [address] [facility] [address] [place] [address] Ref Prov, [place] [address] Social History Tobacco Use Types Packs/Day Years [...] any clubs o r organizations such as rastafarian groups, unions, fraternal or athletic groups, or [...] Answer Date Recorded Total Score 0 03/07/2022 [facility] of Occupat ional Health - [...] Reconstructive Surgery [address] [place] [address] Marisela Davila INSIDE SALES ENGINEER-ASSOCIATE PROFESSOR OF ENGLISH [address], [address] [place] [address] documented as of this encounter Procedures Procedure Name Priority Date/Time Associated Diagnosis Comments MULTIPLE LABS Routine 10/15/2023 8:06 AM EDT documented in this encounter Results * Multiple labs (10/15/2023 8:06 AM EDT) us Not In System Ref Prov SD IMAGING Final Res ult MANUALLY TRANSCRIBED RESULTS documented in this encounter Visit Diagnoses Not on filedocumented in this encounter Additional Health Concerns Infection Onset Date Last Indicated Resolved Time OPERATOR WEAPON LOCATING RADAR Comment:LT CHEST WALL TISSUE(08/12/24) 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
--- OUTSIDE RECORDS SUMMARY | 2024-11-02 12:01 | XMS_ITS | Encounter Summary ---
Author Organization [facility] Address [facility] [id number] [address] [place] [address] Care Team Providers Care Head Athletic Trainer Name Role Phone Amy Collier IMPREGNATOR AND DRIER-INSPECTOR BICYCLE Primary Care Provider + Encounter Details Date Type Department Care Team (Late st Contact Info) Description 05/13/2023 Orders Only [facility] Internal Medicine - Family Medicine [address] [place] [address] External, Scanning Provider Social History [...] How often do you attend chur or oriental orthodox services? 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
--- OUTSIDE RECORDS SUMMARY | 2024-11-02 12:01 | XMS_ITS | Encounter Summary ---
Author Organization [facility] Address [facility] [place] [address] Care Team Providers Care Compensation Business Partner Name Role Phone Nilda Carolina RICHTER Unavailable [phone] Jessica Hope MD Unavailable [phone] Lynda Manuel MUSIC COORDINATOR Primary Care Provider [phone] Shereen Smallwood PA-C Unavailable [phone] Radha Martinez RN Unavailable Amy Collier HUMAN RESOURCES EXECUTIVE ASSISTANT Primary Care Provider [phone] Source Comments In the event this information is protected by the Federal Confidentiality of Alcohol and Drug AbusePatient Records regulations: The Federal rules restrict any use of the information to criminally investigate or prosecute any alcohol or drug abuse patient.[facility] Encounter Details Date Type Department Care Team (Late st Contact Info) Description 09/26/2024 Cure Form [facility] [address] [place] [address] Carlos Mccain DO, PhD [address] BEDS AT THE [facility] [address] [place] [address] Social History Tobacco Use Types Packs/Day Years Used Date Smoking Tobacco: Never Passive Smoke Exposure: Never Smokeless Tobacco: Never Alcohol Use Standard Drinks/Week Comments Not Currently 0 (1 standard drink = 0.6 oz pur e alcohol) Occasional wine [facility] Utilities Answer Date Recorded In [...] any time in the past [facility] were you homeless or living in a [facility] (including now)? No 08/29/2024 Area Deprivation Index Answer Date Milton rded National Score (1-100), lower number is lower ri sk 82 07/21/2024 State Score (1-10), lower number is lower risk 7 07/21/2024 Data from: https://www.neighborhoodatlas.medicine.[facility].edu/. Last address used for calculation [address] 07/21/2024 Comments Unknown Sex and Gender Information Value Date Recorded Sex Assigned at Not on file Legal Sex Female 3:51 PM EDT Gender Identity Not on file Sexual Orientation Not on file documented as of this encounter Plan of Treatment Upcoming Encounters Date Type Department Care Team (Latest Contact Info) Description 11/29/2024 10:20 AM EDT Appointment [facility] Radiology MRI [address] [address] With Perfusion 12/01/2024 2:00 PM EDT [facility] [address] [place] [address] Carlos Mccain DO, PhD [address] COUNTS INCLUDE 234 BEDS AT THE [facility] [address] [place], [place] [id number] Established patient Visit with Dr. Mccain for MRI review and follow up documented as of this encounter Visit Diagnoses Not on filedocumented in this encounter Care Teams Compensation Business Partner Relationship Specialty Start Date End Date Lynda Manuel CNP [address] [place] [address] PCP - General Family Medicine 06/14/24 09/26/24 Amy Collier NP [address] [place] [address] PCP - General Family Medicine 09/27/24 Carolina Munguia APRN [address] [facility] [address] [place] [address] 12/04/23 Jessica Hope MD [address] [place] [address] Referring Hematology/Oncology 06/14/24 Shereen Smallwood PA-C [address] [facility] [address] [place] [address] [facility] Referring Orthopedics 06/15/24 [place] [address] [place] [address] Specialty Sampler Ovens Hematology/Oncology 07/31/24 documented as of this encounter
--- OUTSIDE RECORDS SUMMARY | 2024-11-02 12:01 | XMS_ITS | Encounter Summary ---
Author Organization [facility] Address [address] [place] [address] Care Team Providers Care Medical Assistant Instructor Name Role Phone Randy Lu MD Primary Care Provider Encounter Details Date Type Department Care Team (Late Contact Info) Description 07/29/2023 Abstract [facility] Suzanne [facility] SOU[facility] [address] [place] [address] Evan Thompson DO [facility] [place] [address] Social History Tobacco Use Types Packs/Day Years [...] EDT Office Visit [facility] Suzanne DE SOUZA [facility] [place] [address] Evan Thompson DO [address] [place] [id number] documented as of this encounter Visit Diagnoses Not on filedocumented in this encounter Care Teams Medical Assistant Instructor Relationship Specialty Start Date End Date Randy Lu MD PCP - General Family Medicine 04/02/23 documented as of this encounter
--- OUTSIDE RECORDS SUMMARY | 2024-11-02 12:01 | XMS_ITS | Encounter Summary ---
Author Organization [employer] [facility] [employer] Address [id number] [address] [place] [address] Care Team Providers Care Sales Counselor Name Role Phone Amy Collier YEAST PUSHER-SYSTEM TRAINER Primary Care Provider + Reason for Referral * Specialty Diagnoses / Procedures Referred By Jose olmedo Referred To Contact Vascular Surgery TIAGO CARSON [address] [place] [address] Referral ID Status Reason Start Date Expiration Date Visits Re quested Visits Authorized Encounter Details Date Type Department Care Team (Late st Contact Info) Description 09/21/2023 Orders Only [facility] Internal Medicine - Family Medicine [address] [place] [address] Ref Prov, [place] [address] Social History Tobacco Use Types Packs/Day Years [...] Date Recorded Total Score 0 03/07/2022 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
--- OUTSIDE RECORDS SUMMARY | 2024-11-02 12:01 | XMS_ITS | Encounter Summary ---
Author Organization [facility] Address [facility] [place] [address] Care Team Providers Care Home Energy Inspector Name Role Phone Carolina Munguia APRN Unavailable [phone] Jessica Hope MD Unavailable [phone] Shereen Smallwood PA-C Unavailable [phone] Radha Martinez RN Unavailable Amy Collier NP Primary Care Provider [phone] Source Comments In the event this information is protected by the Federal Confidentiality of Alcohol and Drug AbusePatient Records regulations: The Federal rules restrict any use of the information to criminally investigate or prosecute any alcohol or drug abuse patient.[facility] Reason for Visit * Reason Comments Patient Question Encounter Details Date Type Department Care Team (Late st Contact Info) Description 10/04/2024 Telephone [facility] [address] [place] [phone] Carlos Mccain DO, PhD [address] [facility] [address] [place] [address] Patient Question Social History Tobacco Use Types Packs/Day Years Used Date Smoking Tobacco: Never Passive Smoke Exposure: Never Smokeless Tobacco: Never Alcohol Use Standard Drinks/Week Comments Not Currently 0 (1 standard drink = 0.6 oz pur e alcohol) Occasional wine [facility] Utilities Answer Date Recorded In [...] in the past [address] [facility], were you homeless or living in a senior care (including now)? No 08/29/2024 Area Deprivation Index Answer Date Milton rded National Score (1-100), lower number is lower ri sk 82 07/21/2024 State Score (1-10), lower number is lower risk 7 07/21/2024 Data from: https://www.neighborhoodatlas.medicine.[facility].edu/. Last address used for calculation [address] [...] EDT Appointment [facility] Radiology MRI [address] [place] [address] With Perfusion 12/01/2024 2:00 PM EDT [facility] [address] [place] [address] Carlos Mccain DO, PhD [address] [facility] [address] [place], [place] [phone] Established patient Visit with Dr. Mccain for MRI review and follow up documented as of this encounter Visit Diagnoses Not on filedocumented in this encounter Care Teams Home Energy Inspector Relationship Specialty Start Date End Date Amy Collier NP [address] [place] [address] PCP - General Family Medicine 09/27/24 Carolina Munguia APRN [address] [facility] [address] [place] [address] 12/04/23 Jessica Hope MD [address] [place] [address] Referring Hematology/Oncology 06/14/24 Shereen Smallwood PA-C [address] [facility] [address] [place] [address] [facility] Referring Orthopedics 06/15/24 [place] [address] [place] [address] Specialty Parking Analyst Hematology/Oncology 07/31/24 documented as of this encounter
--- OUTSIDE RECORDS SUMMARY | 2024-11-02 12:01 | XMS_ITS | Encounter Summary ---
Author Organization [facility] Address [id number] [address] [place] [address] Care Team Providers Care Central Sterile Technician Name Role Phone Amy Collier APPLICATIONS ENGINEER MANUFACTURING-RADIATOR MECHANIC Primary Care Provider + Encounter Details Date Type Department Care Team (Late st Contact Info) Description 04/03/2023 Orders Only [facility] Internal Medicine - Family Medicine [address] [place] [phone] Amy Collier APRN-RADIATOR MECHANIC [address] [place] [address] Social History Tobacco Use Types Packs/Day Years [...] Answer Date Recorded Total Score 0 03/07/2022 [facility] of Occupat ional Health - Occupational Stress [...] Plastic and Reconstructive Surgery [address] [facility] [address] [place] [address] Marisela Davila APRN-CNP [address], [facility] [address] [place] [address] documented as of this encounter [...] Infection Onset Date Last Indicated Resolved Time SQUAD LEADER Comment:LT CHEST WALL TISSUE(08/12/24) 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
--- OUTSIDE RECORDS SUMMARY | 2024-11-02 12:01 | XMS_ITS | Encounter Summary ---
Author Organization [facility] Address [address] [place] [address] Care Team Providers Care Electrical And Instrument Technician Name Role Phone Randy Lu MD Primary Care Provider Encounter Details Date Type Department Care Team (Late Contact Info) Description 07/13/2023 Abstract [facility] Suzanne [facility] [address] [place] [address] Nahomy Watson LPN [address] [place] [address] Social History Tobacco Use Types Packs/Day Years [...] Office Visit [facility] Suzanne DE S[facility] [address] [place] [address] Evan Thompson DO [address] [facility] [address] [place] [place] [phone] documented as of this encounter Visit Diagnoses Not on filedocumented in this encounter Care Teams Electrical And Instrument Technician Relationship Specialty Start Date End Date Randy Lu MD PCP - General Family Medicine 04/02/23 documented as of this encounter
--- OUTSIDE RECORDS SUMMARY | 2024-11-02 12:01 | XMS_ITS | Encounter Summary ---
Author Organization [facility] Address [facility][id number] [address] [place] [address] Care Team Providers Care Fire Ranger Name Role Phone Amy Collier TEST ARCHITECT-HOTEL CLERK Primary Care Provider + Encounter Details Date Type Department Care Team (Late st Contact Info) Description 04/14/2023 Orders Only [facility] Internal Medicine - Family Medicine [address] [place] [address] Randy Lu, DO [address] [facility] [place] [address] Social History Tobacco Use Types Packs/Day Years [...] Recorded Total Score 0 03/07/2022 [facility] [place] of Occupat ional Health - Occupational Stress [...] Plastic and Reconstructive Surgery [address] [facility] [address] [facility] [place] [address] Marisela Davila TEST ARCHITECT-HOTEL CLERK [address], [facility] [address] [facility] [place] [address] documented as of this encounter Visit Diagnoses Not on filedocumented in this encounter Additional Health Concerns Infection Onset Date Last Indicated Resolved Time SATELLITE TELEVISION INSTALLER Comment:LT CHEST WALL TISSUE(08/12/24) 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
--- OUTSIDE RECORDS SUMMARY | 2024-11-02 12:01 | XMS_ITS | Encounter Summary ---
Author Organization [facility] Address [id number] [address] [place] [address] Care Team Providers Care Truck Crane Operator Name Role Phone Amy Collier CHURCH WORKER-PARENT TRAINER Primary Care Provider + Encounter Details Date Type Department Care Team (Late st Contact Info) Description 09/01/2023 Orders Only [facility] Internal Medicine - Family Medicine [address] [place] [address] Ref Prov, [place] [address] Social History Tobacco Use Types Packs/Day Years [...] Answer Date Recorded Total Score 0 03/07/2022 [facility] of Occupat ional Health - [...] Do you need help finding a [facility] career center and/or a training [...] Reconstructive Surgery [address] [place] [address] Marisela Davila APRN-CNP [address], [address] [place] [address] documented as of this encounter [...] Infection Onset Date Last Indicated Resolved Time 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
--- OUTSIDE RECORDS SUMMARY | 2024-11-02 12:01 | XMS_ITS | Encounter Summary ---
Author Organization [employer] Address [facility] [place][id number] [address] [place] [address] Care Team Providers Care Sampler Tester Name Role Phone Amy Collier MORPHOLOGY TEACHER-MANAGER RETAIL STORE Primary Care Provider + Encounter Details Date Type Department Care Team (Late st Contact Info) Description 10/27/2023 Orders Only [facility] Surgical Oncology [address] [facility] [address] [place] [address] Ref Prov, [place] [address] Social History Tobacco Use Types Packs/Day Years Used Date Smoking Tobacco: Never Smokeless Tobacco: Never Alcohol Use Standard Drinks/Week Comments Yes 0 (1 standard drink = 0.6 oz pur e alcohol) Socially [facility] Utilities Answer Date Recorded In the past 12 months has bulletn. electric, gas, oil, or water company threatened [...] Answer Date Recorded Total Score 0 03/07/2022 [facility] of Occupat ional Health - Occupational Stress [...] file Travel History Travel Start Travel End [place] 09/13/2024 10/26/2024 documented as of this encounter Functional Status documented as of this encounter Plan of Treatment Upcoming Encounters Date Type Department Care Team (Late st Contact Info) Description 11/16/2024 1:30 PM EDT Office Visit [facility] Plastic and Reconstructive Surgery [address] [facility] [address] [place] [address] Marisela Davila APRN-MANAGER RETAIL STORE [address], [facility] [address] [place] [address] documented as of this encounter [...] Infection Onset Date Last Indicated Resolved Time AIRCRAFT PNEUDRAULICS REPAIRER Comment:LT CHEST WALL TISSUE(08/12/24) 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
--- OUTSIDE RECORDS SUMMARY | 2024-11-02 12:01 | XMS_ITS | Encounter Summary ---
Author Organization [facility] Address [address] [place] [address] Care Team Providers Care Pathology Specialist Name Role Phone Randy Lu MD Primary Care Provider Encounter Details Date Type Department Care Team (Late Contact Info) Description 11/16/2023 Abstract [facility] Suzanne DE S[address]ZA [address] [place] [address] Evan Thompson DO [facility] [place] [address] Social History Tobacco Use Types Packs/Day Years [...] EDT Office Visit [facility] Suzanne DE SOUZA [facility] [place] [address] Evan Thompson DO [address] [place] [phone] documented as of this encounter Visit Diagnoses Not on filedocumented in this encounter Care Teams Pathology Specialist Relationship Specialty Start Date End Date Randy Lu MD PCP - General Family Medicine 04/02/23 documented as of this encounter
--- OUTSIDE RECORDS SUMMARY | 2024-11-02 12:01 | XMS_ITS | Encounter Summary ---
Author Organization [facility] Address [address] [place] [address] Care Team Providers Care Aerodynamics Professor Name Role Phone Randy Lu MD Primary Care Provider [phone] Encounter Details Date Type Department Care Team (Late Contact Info) Description 09/09/2023 Abstract [facility] Suzanne DE SOUZA [address] [place] [address] Evan Thompson DO [facility] [place] [address] Social History Tobacco Use Types Packs/Day Years [...] EDT Office Visit [facility] Suzanne DE SOUZA [facility] [place] [address] Evan Thompson DO [address] [place] [phone] documented as of this encounter Visit Diagnoses Not on filedocumented in this encounter Care Teams Aerodynamics Professor Relationship Specialty Start Date End Date Randy Lu MD PCP - General Family Medicine 04/02/23 documented as of this encounter
--- OUTSIDE RECORDS SUMMARY | 2024-11-02 12:01 | XMS_ITS | Encounter Summary ---
Author Organization [facility] Address [id number] [address] [place] [address] Care Team Providers Care Traveling Construction Superintendent Name Role Phone Amy Collier [place] PHOTOGRAPHER-OPTOMETRY TEACHER Primary Care Provider + Encounter Details Date Type Department Care Team (Late st Contact Info) Description 07/14/2023 Orders Only [facility] Internal Medicine - Family Medicine [address] [place] [address] External, Scanning Provider Social History [...] file Travel History Travel Start Travel End [place] 09/13/2024 10/26/2024 documented as of this encounter Plan of Treatment Upcoming Encounters Date Type Department Care Team (Late st Contact Info) Description 11/16/2024 1:30 PM EDT Office Visit [facility] Plastic and Reconstructive Surgery [address] [place] [address] Marisela Davila, [place] PHOTOGRAPHER-OPTOMETRY TEACHER [address], [address] [place] [address] documented as of this encounter [...] Infection Onset Date Last Indicated Resolved Time JEWEL SUPERVISOR Comment:LT CHEST WALL TISSUE(08/12/24) 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
--- OUTSIDE RECORDS SUMMARY | 2024-11-02 12:01 | XMS_ITS | Encounter Summary ---
Author Organization [facility] Address [facility]-[id number] [address] [place] [address] Care Team Providers Care Merchandising Stock Associate Name Role Phone Amy Collier SECOND HELPER-DRIED YEAST SUPERVISOR Primary Care Provider + Encounter Details Date Type Department Care Team (Late st Contact Info) Description 03/26/2023 Orders Only [facility] Internal Medicine - Family Medicine [address] [place] [address] Amy Collier APRN-DRIED YEAST SUPERVISOR [address] [place] [address] Social History Tobacco Use Types Packs/Day Years [...] Answer Date Recorded Total Score 0 03/07/2022 [facility] [place] of Occupat ional Health - Occupational Stress [...] Plastic and Reconstructive Surgery [address] [facility] [address] [place] [address] Marisela Davila APRN-CNP [address], [facility] [address] [facility] [place] [address] documented as of this encounter [...] Infection Onset Date Last Indicated Resolved Time DESK CLERKS SUPERVISOR Comment:LT CHEST WALL TISSUE(08/12/24) 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
--- OUTSIDE RECORDS SUMMARY | 2024-11-02 12:01 | XMS_ITS | Encounter Summary ---
Author Organization [facility] Address [facility] [place] [address] Care Team Providers Care Med Peds Name Role Phone Carolina Munguia APRN Unavailable [phone] Jessica Hope MD Unavailable [phone] Lynda Manuel MARKETING ADMINISTRATOR Primary Care Provider [phone] Shereen Smallwood PA-C Unavailable [phone] Radha Martinez RN Unavailable Amy Collier NP Primary Care Provider [phone] Source Comments In the event this information is protected by the Federal Confidentiality of Alcohol and Drug AbusePatient Records regulations: The Federal rules restrict any use of the information to criminally investigate or prosecute any alcohol or drug abuse patient.[facility] Reason for Referral * MRI/CT (Routine) - Authorized Specialty Diagnoses / Procedures Referred By Jose olmedo Referred To Contact MR IMAGING Diagnoses Secondary malignant neoplasm of brain (HCC) Procedures MRI BRAIN WO/W IVCON MRI BRAIN BRAIN STEM W/O W/CONTRAST MATERIAL Carlos Mccain DO, PhD [address] [address] Phone: tel: fax: [place] [address] Referral ID Status Reason Start Date Expiration Date Visits Requested Visits Authorized [id number] Authorized Auto-Generat ed Referral 11/01/2024 12/16/2024 1 1 * MRI/CT (Routine) - Closed Specialty Diagnoses / Procedures Referred By Jose olmedo Referred To Contact MR IMAGING Diagnoses Secondary malignant neoplasm of brain (HCC) Procedures MRI BRAIN LOCALIZATION W IVCON MAGNETIC RESONANCE ELASTOGRAPHY Carlos Mccain DO, PhD [address] [place] [address] Phone: tel: fax: [place] [address] Referral ID Status Reason Start Date Expiration Date V isits Requested Visits Authorized [id number] Closed Auto-Generat ed Referral Patient Cleared - Admin/Chairm an/Director advise to proceed or did not respond 10/07/2024 10/07/2024 1 1 * MRI/CT (Routine) - Closed Specialty Diagnoses / Procedures Referred By Jose olmedo Referred To Contact CT IMAGING Diagnoses Secondary malignant neoplasm of brain (HCC) Procedures CT BRAIN STEREOLOCAL WO IVCON CT GUIDANCE STEREOTACTIC LOCALIZATION Carlos Mccain DO, PhD [address] [place] [address] Phone: tel: fax: [place] [address] Referral ID Status Reason Start Date Expiration Date V isits Requested Visits Authorized [id number] Closed Auto-Generate d Referral 10/07/2024 03/01/2025 1 1 Encounter Details Date Type Department Care Team (Late st Contact Info) Description 09/26/2024 Cure Form [facility] [address] [id number] Carlos Mccain DO, PhD [address] [place] [address] Secondary malignant neoplasm of brain (HCC) (Primary Dx) Social History Tobacco Use Types Packs/Day Years Used Date Smoking Tobacco: Never Passive Smoke Exposure: Never Smokeless Tobacco: Never Alcohol Use Standard Drinks/Week Comments Not Currently 0 (1 standard drink = 0.6 oz pur e alcohol) Occasional wine [facility] Utilities Answer Date Recorded In the past 12 months has th e [employer], gas, oil, or water company threatened to [...] any time in the past 12 m [facility], were you homeless or living in a long-term (including now)? No 08/29/2024 Area Deprivation Index Answer Date [place] rded National Score (1-100), lower number is lower ri sk 82 07/21/2024 State Score (1-10), lower number is lower risk 7 07/21/2024 Data from: https://www.neighborhoodatlas.medicine.[facility].edu/. Last address used for calculation [address] [...] AM EDT Appointment [facility] Radiology [place] [address] [address] With Perfusion 12/01/2024 2:00 PM EDT [facility] [address] [place] [address] Carlos Mccain DO, PhD [address] [address] [address] [place] [address] Established patient Visit with Dr. Mccain for [...] IMPRESSION: Examination performed for preprocedural planning purposes. Reed Polisher: CARLOS Transcribe Date/Time: Oct 07 2024 8:54A [...] this is for gk planning purposes. - [id number] - - - - TECHNIQUE: CT head [...] or retention cysts in both maxillary antra. Visual Manager (topogram) images: No additional findings. Procedure Note Provider, [facility] - 10/07/2024 * * *Final Report* [...] this is for gk planning purposes. - [id number] - - - - TECHNIQUE: CT head [...] or retention cysts in both maxillary antra. Visual Manager (topogram) images: No additional findings. IMPRESSION IMPRESSION: Examination performed for preprocedural planning purposes. Reed Polisher: CARLOS Transcribe Date/Time: Oct 07 2024 8:54A [...] and left inferior frontal lesion from 09/07/2024. Reed Polisher: CARLOS Transcribe Date/Time: Oct 07 2024 8:56A [...] this is for gk planning purposes - [id number] - - - - TECHNIQUE: MRI brain [...] Basal cisterns are clear. Procedure Note Provider, [facility] - 10/07/2024 * * *Final Report* * [...] this is for gk planning purposes - [id number] - - - - TECHNIQUE: MRI brain [...] and left inferior frontal lesion from 09/07/2024. Reed Polisher: CARLOS Transcribe Date/Time: Oct 07 2024 8:56A [...] cord documented in this encounter Care Teams Med Peds Relationship Specialty Start Date End Date Lynda Manuel, MARKETING ADMINISTRATOR [address] [place], [place] [id number] PCP - General Family Medicine 06/14/24 09/26/24 Amy Collier, MONICA [address] [place] [place] [address] PCP - General Family Medicine 09/27/24 Carolina Munguia APRN [address] [facility] [address] [facility] [place] [address] 12/04/23 Jessica Hope MD [address] [place] [address] Referring Hematology/Oncology 06/14/24 Shereen Smallwood, PANicolasC [address] [facility] [address] [place] [address] [facility] Referring Orthopedics 06/15/24 [place] [address] [place] [address] Specialty Bingo Caller Hematology/Oncology 07/31/24 documented as of this encounter
--- OUTSIDE RECORDS SUMMARY | 2024-11-02 12:01 | XMS_ITS | Encounter Summary ---
Author Organization [facility] Address [address] [place] [address] Phone Care Team Providers Care Systems Software Specialist Name Role Phone Randy Lu DO Primary Care Provider Encounter Details Date Type Department Care Team (Late st Contact Info) Description 09/20/2021 Orders Only [facility] [address] [place] [address] Conversion, Onbase Social History Tobacco Use Types [...] on filedocumented in this encounter Care Teams Systems Software Specialist Relationship Specialty Start Date End Date Randy Lu DO PCP - General 07/21/22 documented as of this encounter
--- OUTSIDE RECORDS SUMMARY | 2024-11-02 12:01 | XMS_ITS | Encounter Summary ---
Author [id number] [address] [place] [address] Care Team Providers Care Ager Operator Name Role Phone Amy Collier INSPECTOR HAIRSPRING-VENEER JOINTER Primary Care Provider + Encounter Details Date Type Department Care Team (Late st Contact Info) Description 04/07/2023 Orders Only [facility] Internal Medicine - Family Medicine [address] [place] [address] External, Scanning Provider Social History [...] [facility] of Occupat ional Health - [...] you need help finding a [facility] career center and/or a training program? No [...] Ibrahim - 04/07/2023 8:52 AM EST Sent savanahagnes staton * Susan Horton CMA - 04/07/2023 8:52 AM EST Patient has breast cancer and a wellness is not her concern right now. documented in this encounter Plan of Treatment Upcoming Encounters Date Type Department Care Team (Late st Contact Info) Description 11/16/2024 1:30 PM EDT Office Visit [facility] Plastic and Re[facility]ive Surgery [address] [facility] [address] [place] [address] Marisela Davila, INSPECTOR HAIRSPRING-VENEER JOINTER [address], [facility] [address] [place] [address] documented as of this encounter Visit Diagnoses Not on filedocumented in this encounter Additional Health Concerns Infection Onset Date Last Indicated Resolved Time SINGEING TORCH OPERATOR Comment:LT CHEST WALL TISSUE(08/12/24) 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
--- OUTSIDE RECORDS SUMMARY | 2024-11-02 12:01 | XMS_ITS | Encounter Summary ---
Author Organization [facility] Address [address] [place] [address] Care Team Providers Care University Archivist Name Role Phone Randy Lu MD Primary Care Provider [phone] Encounter Details Date Type Department Care Team (Late Contact Info) Description 01/07/2024 Abstract [facility] [address] [place] [address] Evan Thompson DO [facility] [place] [address] Social History Tobacco Use Types Packs/Day Years [...] EDT Office Visit [facility] [place] [address] Evan Thompson DO [address] [id number] documented as of this encounter Visit Diagnoses Not on filedocumented in this encounter Care Teams University Archivist Relationship Specialty Start Date End Date Randy Lu MD PCP - General Family Medicine 04/02/23 documented as of this encounter
--- OUTSIDE RECORDS SUMMARY | 2024-11-02 12:01 | XMS_ITS | Encounter Summary ---
Author Organization [facility] Address [address] [place] [address] Care Team Providers Care Stringed Instrument Tuner Name Role Phone Randy Lu MD Primary Care Provider Encounter Details Date Type Department Care Team (Late Contact Info) Description 02/10/2024 Abstract [facility] [place] [address] Evan Thompson DO [facility] [place] Palacios, [facility] Social History Tobacco Use Types Packs/Day Years [...] Suz[address] [place] [address] Evan Thompson DO [address], [facility] documented as of this encounter Visit Diagnoses Not on filedocumented in this encounter Care Teams Stringed Instrument Tuner Relationship Specialty Start Date End Date Randy Lu MD PCP - General Family Medicine 04/02/23 documented as of this encounter
--- OUTSIDE RECORDS SUMMARY | 2024-11-02 12:01 | XMS_ITS | Encounter Summary ---
Author Organization [facility] Address [id number] [address] [place] [address] Care Team Providers Care Finished Carpet Inspector Name Role Phone Amy Collier PENCILS WASHER-COLLISION REPAIR TECHNICIAN Primary Care Provider + Encounter Details Date Type Department Care Team (Late st Contact Info) Description 03/10/2023 Orders Only [facility] Internal Medicine - Family Medicine [address] [place] [address] Amy Collier APRN-COLLISION REPAIR TECHNICIAN [address] [place] [address] Abnormal mammogram of right breast Social History [...] Answer Date Recorded Total Score 0 03/07/2022 [facility] of Occupat ional Health - Occupational Stress [...] Plastic and Reconstructive Surgery [address] [place] [address] Marisela Davila APRN-COLLISION REPAIR TECHNICIAN [address], [address] [place] [address] documented as of this encounter [...] Infection Onset Date Last Indicated Resolved Time WARDROBE MANAGER Comment:LT CHEST WALL TISSUE(08/12/24) 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
--- OUTSIDE RECORDS SUMMARY | 2024-11-02 12:01 | XMS_ITS | Clinical Summary ---
Author Organization [facility] Address [address] [place] [address] Care Team Providers Care Data Developer Name Role Phone Carolina Munguia APRN Unavailable [phone] Jessica Hope MD Unavailable [phone] Shereen Smallwood PA-C Unavailable [phone] Radha Maritnez RN Unavailable Amy Collier CLINICAL LAB SPECIALIST Primary Care Provider [phone] Allergies Active Allergy Reactions Criticality Noted Date [...] 0.9 % sodium chloride (NACL 0.9%) infusion 5 Active amikacin (AMIKIN) 500 mg/2 mL soln 5 Active ELIQUIS 5 mg tab(s) Take 5 mg by mouth. 4 Active carvedilol (COREG) 12.5 mg tablet Take 12.5 mg by mouth. 5 Active cyanocobalamin (VITAMIN B-12) 1,000 mcg tab Take 1,000 mcg by mouth. 4 Active cyclobenzaprin e (FLEXERIL) 10 mg tablet Take 1 tablet by mouth every evening. 4 Active diazePAM (VALIUM) 5 mg tablet Take 1 tablet (5 mg total) by mouth every 12 (twelve) hours as needed for anxiety or muscle spasms (Give 30min prior to dressing change) for up to 10 days for anxiety 5 Active FEROSUL 325 mg (65 mg iron) tablet Take 1 tablet by mouth two times a day with meals. Active folic acid 1 mg tablet Take 1 mg by mouth. 5 Active gabapentin (NEURONTIN) 300 mg capsule Take 300 mg by mouth two times a day. 4 Active hydrOXYzine HCl (ATARAX) 25 mg tablet Take 25 mg by mouth. 5 Active imipenem/cilas tatin sodium (IMIPENEM-CILA STATIN INTRAVENOUS) Inject 1,000 mg intravenously two times a day. 5 Active magnesium oxide 400 mg magnesium tab Take 400 mg by mouth. Active omadacycline (NUZYRA) 150 mg tablet Take 300 mg by mouth. Active oxyCODONE IR (ROXICODONE) 10 mg tab Take 1 tablet by mouth every 6 hours as needed. 5 Active oxyCODONE IR (ROXICODONE) 5 mg immediate release tablet Take 1 tablet (5 mg total) by mouth every 4 hours as needed for pain for up to 7 days. Max Daily Amount 30 mg 5 Active potassium chloride (K-TAB) 10 mEq tablet TAKE TWO TABLETS BY MOUTH TWICE A DAY Active prochlorperazi ne (COMPAZINE) 10 mg tablet 4 Active pyridoxine, vitamin B6, (VITAMIN B6) 50 mg tablet Take 50 mg by mouth. 5 Active spironolactone (ALDACTONE) 25 mg tablet Take 12.5 mg by mouth once daily. 4 Active CLOFAZIMINE, BULK, MISC Take 100 mg by mouth. Active acyclovir (ZOVIRAX) 400 mg tablet Take 1 tablet by mouth two times a day. 60 tablet 5 Active famotidine (PEPCID) 20 mg tablet Take 1 tablet by mouth once daily. Patient should start on September 08, 2024. 10 tablet 5 Active capecitabine (XELODA) 500 mg tablet Take 1,500 mg by mouth. 5 Active acetaminophen (TYLENOL) 325 mg tablet Take 650 mg by mouth q 6 HR. 5 Active naloxone 4 mg/actuation nasal spray (NARCAN) Use 4 mg in the nose at bedtime as needed. 5 Active dexAMETHasone (DECADRON) 2 mg tablet Take 4mg (2 tablets) by mouth once a day for 4 days, then take 2mg (1 tablet) once a day for 4 days, then stop. Patient should start on October 08, 2024. 12 tablet 5 Active famotidine (PEPCID) 20 mg tablet Take 1 tablet by mouth once daily for 8 days. Patient should start on October 08, 2024. 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] 10/07/2024 9:00 AM EDT Office Visit Neurosurgery [address] [place] [address] Secondary malignant neoplasm of brain (HCC) (Primary Dx) 10/07/2024 7:04 AM EDT - 10/07/2024 11:59 PM EDT Hospital Encounter Radiology [address] [place] [address] 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] Discharge Disposition: Home 10/07/2024 7:04 AM EDT - 10/07/2024 11:59 PM EDT Hospital Encounter Radiology [address] [place] [address] 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] Discharge Disposition: Home 10/07/2024 Radiation Oncology Note [facility] [address] [place] [address] Marcos Adams MD Procedure 10/07/2024 Radiation Oncology Note [facility] [address] [place] [address] Marcos Adams MD Completion Note 10/07/2024 Operative Note (Enc) [facility] [address] [address] Carlos Mccain DO, PhD 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) 10/07/2024 Orders Only Neurosurgery [address] [place] [address] Carlos Mccain DO, PhD Secondary malignant neoplasm of brain (HCC) (Primary Dx) 10/07/2024 Travel 10/04/2024 Telephone [facility] [address] [address] Carlos Mccain DO, PhD Patient Question 09/26/2024 Cure Form [facility] [address] [address] Carlos Mccain DO, PhD Secondary malignant neoplasm of brain (HCC) (Primary Dx) 09/26/2024 Cure Form [facility] [place] [id number] Carlos Mccain DO, PhD 09/23/2024 Telephone [place] [id number] Altagracia Johnston, OC Coal Briquette Machine Operator - Other 09/22/2024 Telephone [facility] [place] [id number] Carlos Mccain DO, PhD 09/16/2024 8:40 AM EDT Office Visit Plastic Surgery [address] [address] Geno Ann APRN.COMPUTER TERMINAL OPERATOR Post-operative state (Primary Dx); S/P breast reconstruction; History of breast cancer 09/16/2024 7:30 AM EDT Visit (SP) Office Hematology/Oncolog y [id number] [place] [address] Sussy Syed APRN.COMPUTER TERMINAL OPERATOR Breast cancer metastasized to liver, unspecified laterality (HCC) (Primary Dx); Encounter for medication monitoring 09/16/2024 Patient Msg Hematology/Oncolog y [id number] [place] [address] Sussy Syed APRN.COMPUTER TERMINAL OPERATOR Follow up 09/07/2024 4:30 PM EDT - 09/07/2024 6:00 PM EDT Surgery Anesthesia [address] [address] Carlos Mccain DO, PhD STEREOTACTIC RADIOSURGERY 1 COMPLEX CRANIAL LESION 09/07/2024 4:30 PM EDT Hospital Encounter Anesthesia [address] [address] Carlos Mccain DO, PhD 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] 09/07/2024 9:00 AM EDT Office Visit Neurosurgery [address] [place], [place] [phone] Secondary malignant neoplasm of brain (HCC) (Primary Dx) 09/07/2024 7:24 AM EDT - 09/07/2024 11:59 PM EDT Hospital Encounter Radiology [id number] [place], [place] [phone] 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] Discharge Disposition: Home 09/07/2024 7:23 AM EDT Hospital Encounter Radiology [address] [place] [address] Discharge Disposition: Home 09/07/2024 Radiation Oncology Note [facility] [address] [place] [address] Sam Chandra MD Completion Note 09/07/2024 Radiation Oncology Note Rad[facility] On[facility] [address] [place] [address] Sam Chandra MD Procedure 09/07/2024 Radiation Oncology Note Rad[facility] Oncology [address] [place] [address] Sam Chandra MD Simulation Note 09/07/2024 Operative Note (Enc) [facility] [address] [place], [place] [id number] Carlos Mccain DO, PhD 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) 09/07/2024 Orders Only Neurosurgery [address] [place], [place] [phone] Carlos Mccain DO, PhD Secondary malignant neoplasm of brain (HCC) (Primary Dx) 09/05/2024 2:00 PM EDT [facility] Radiation Oncology [address] [place] [address] Marisela Cisneros MD 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) 09/05/2024 Travel 09/05/2024 [place] [address] Provider, [facility] Questionnaire Submission 09/01/2024 Cure Form [facility] [address] [address] Carlos Mccain DO, PhD Secondary malignant neoplasm of brain (HCC) (Primary Dx) 09/01/2024 Cure Form [facility] [place] [id number] Carlos Mccain DO, PhD 08/30/2024 2:03 PM EDT - 08/30/2024 3:33 PM EDT Surgery Admitting [facility] [place] [phone] Leonidas Colorado MD REMOVAL OF TISSUE SENIOR PHP DEVELOPER(S) W/O INSERTION OF IMPLANT 08/30/2024 12:08 PM EDT Anesthesia Event Admitting [facility] [place] [phone] Negar Butler MD Kalnitsky, Samuel, MD 08/26/2024 12:49 PM EDT - 09/01/2024 2:03 PM EDT Hospital Encounter HOSP MAIN G070 [address] [place] [id number] Dwayne Sahu DO Ornstein, Moshe, MD Delasos, Lukas, DO NEW BRAIN METS Discharge Disposition: Home 08/10/2024 Results Follow-Up Hematology/Oncolog y [address] [place] [phone] Aurelia Oneill MD from Last 3 Months Social History Tobacco Use Types Packs/Day Years Used Date Smoking Tobacco: Never Passive Smoke Exposure: Never Smokeless Tobacco: Never Alcohol Use Standard Drinks/Week Comments Not Currently 0 (1 standard drink = 0.6 oz pur e alcohol) Occasional wine [employer] Utilities Answer Date Recorded In the past 12 months has [employer], gas, oil, or water [employer] threatened to shut off services in your [...] any time in the past 12 [facility], were you homeless or living in a snf (including now)? No 08/29/2024 Area Deprivation Index [...] Info) Description 11/29/2024 10:20 AM EDT Appointment [facility] Radiology MRI [address] [place] [address] With Perfusion 12/01/2024 2:00 PM EDT [facility] [place] [address] [place] [address] Carlos Mccain DO, PhD [address] [place] [phone] Established patient Visit with Dr. Mccain for [...] 2024 , 11/14/2019, 12/13/2018, Additional history exists Lipid Screening [...] of reconstruction of both breasts REMOVAL TISSUE SENIOR PHP DEVELOPER W/O INSERTION IMPLANT 08/30/2024 11:55 AM EDT [...] + DIFF Routine 08/26/2024 5:53 PM EDT from Last 3 Months Results * CT BRAIN STEREOLOCAL WO IVCON (10/07/2024 8:47 AM EDT) Anatomical Region Laterality Modality Head Computed Tomogra phy 10/07/2024 8:47 AM EDT Impressions 10/07/2024 8:58 AM EDT IMPRESSION: Examination performed for preprocedural planning purposes. Bander And Cellophaner Helper Machine: PSCB Transcribe Date/Time: Oct 07 2024 8:54A [...] this is for gk planning purposes. - [id number] - - - - TECHNIQUE: CT head [...] or retention cysts in both maxillary antra. Steel Handler (topogram) images: No additional findings. Procedure Note Provider, [facility] - 10/07/2024 * * *Final Report* * [...] this is for gk planning purposes. - [id number] - - - - TECHNIQUE: CT head [...] or retention cysts in both maxillary antra. Steel Handler (topogram) images: No additional findings. IMPRESSION IMPRESSION: Examination performed for preprocedural planning purposes. Bander And Cellophaner Helper Machine: CARLOS Transcribe Date/Time: Oct 07 2024 8:54A Dictated by : MACIE PIZANO, DO This examination was interpreted and the [...] and left inferior frontal lesion from 09/07/2024. Bander And Cellophaner Helper Machine: CARLOS Transcribe Date/Time: Oct 07 2024 8:56A [...] this is for gk planning purposes - [id number] - - - - TECHNIQUE: MRI brain [...] Basal cisterns are clear. Procedure Note Provider, [facility] - 10/07/2024 * * *Final Report* * [...] this is for gk planning purposes - [id number] - - - - TECHNIQUE: MRI brain [...] and left inferior frontal lesion from 09/07/2024. Bander And Cellophaner Helper Machine: PSCB Transcribe Date/Time: Oct 07 2024 8:56A Dictated by : MACIE PIZANO DO This examination was interpreted and the report reviewed and electronically signed by: MACIE PIZANO DO on Oct 07 2024 9:01AM EST us Carlos Mccain DO, PhD MRI-PAMA Final Resul t * PHOTO BREAST BOTH (09/16/2024 9:04 AM EDT) Anatomical Region Laterality Modality Other 09/16/2024 9:04 AM EDT us [facility] Provider IMAGES Final Result * CT BRAIN WO IVCON (09/07/2024 8:56 AM EDT) Anatomical Region Laterality Modality Head Computed Tomogra phy 09/07/2024 8:56 AM EDT Impressions 09/07/2024 9:14 AM EDT IMPRESSION: Imaging for gamma knife planning, no acute intracranial pathology. Bander And Cellophaner Helper Machine: PSCB Transcribe Date/Time: Sep 07 2024 9:09A Dictated [...] soft tissues are unremarkable. Procedure Note Provider, [facility] - 09/07/2024 * * *Final Report* * [...] gamma knife planning, no acute intracranial pathology. Bander And Cellophaner Helper Machine: CARLOS Transcribe Date/Time: Sep 07 2024 9:09A Dictated by : SMILEY KING MD This examination was interpreted and the report reviewed and electronically signed by: SMILEY KING MD on Sep 07 2024 9:11AM EST us Carlos Mccain DO, PhD CT-PAMA [...] an incidental meningioma. No new enhancing lesion. Bander And Cellophaner Helper Machine: PSCB Transcribe Date/Time: Sep 07 2024 8:44A [...] basal cisterns are patent. Procedure Note Provider, [facility] - 09/07/2024 * * *Final Report* * [...] an incidental meningioma. No new enhancing lesion. Bander And Cellophaner Helper Machine: [facility] Transcribe Date/Time: Sep 07 2024 8:44A Dictated [...] - 2.3 mg/dL 09/01/2024 5:58 AM EDT [facility] Blood BLOOD SPECIMEN / Unknown Venipuncture / Unknown 09/01/2024 4:17 AM EDT 09/01/2024 4:30 AM EDT Deena Payan LABORATORY Final Result Performing Organization Address City/[facility]/ZIP Co de Phone Number [facility] [address] [place] [id number], [place] * PHOSPHORUS INORGANIC (09/01/2024 4:17 AM EDT) Only the most recent of7 resultswithin the time period is included. [facility] Phosphorus 3.4 2.7 - 4.8 mg/dL 09/01/2024 5:58 AM EDT [facility] Blood BLOOD SPECIMEN / Unknown Venipuncture / Unknown 09/01/2024 4:17 AM EDT 09/01/2024 4:30 AM EDT Deena Glynngiuseppe GALLEGOS LABORATORY Final Result Performing Organization Address [facility] de Phone Number [facility] [address] [address], [place] * (ABNORMAL) COMPREHENSIVE METABOLIC PANEL (09/01/2024 4:17 AM EDT) Only the most recent of7 resultswithin the time period is included. [facility] Protein, Total 5.7(L) 6.3 - 8.0 g/dL 09/01/2024 5:58 AM EDT [facility] Albumin 3.7(L) 3.9 - 4.9 g/dL 09/01/2024 5:58 AM EDT [facility] Calcium, Total 8.9 8.5 - 10.2 mg/dL 09/01/2024 5:58 AM EDT [facility] Bilirubin, Total 0.5 0.2 - 1.3 mg/dL 09/01/2024 5:58 AM EDT [facility] Alkaline Phosphatase 75 34 - 123 U/L 09/01/2024 5:58 AM EDT [facility] AST 72(H) 13 - 35 U/L 09/01/2024 5:58 AM EDT [facility] ALT 109(H) 7 - 38 U/L 09/01/2024 5:58 AM [facility] Glucose 105(H) 74 - 99 mg/dL 09/01/2024 5:58 AM [facility] Comment: The [place] Diabetes Association (ADA) provides guidance for cutoff [...] Standards of Medical Care in Diabetes 2016, [place] [employer] Association. Diabetes Care. 2016.39(Suppl 1). BUN 19 7 - 21 mg/dL 09/01/2024 5:58 AM [facility] Creatinine 1.03(H) 0.58 - 0.96 mg/dL 09/01/2024 5:58 AM [facility] Sodium 140 136 - 144 mmol/L 09/01/2024 5:58 AM [facility] Potassium 4.0 3.7 - 5.1 mmol/L 09/01/2024 5:58 AM [facility] Chloride 107 98 - 107 mmol/L 09/01/2024 5:58 AM [facility] CO2 23 22 - 30 mmol/L 09/01/2024 5:58 AM [facility] Anion Gap 10 8 - 15 mmol/L 09/01/2024 5:58 AM [facility] Estimated Glomerular Filtration Rate 65 >=60 mL/min/1. 73m 09/01/2024 5:58 AM [facility] Comment:Estimated Glomerular Filtration Rate (eGFR) [...] us Deena Payan DO LABORATORY Final Result [facility] [address] [facility] [address] [place] [address], [place] * (ABNORMAL) COMPLETE BLOOD COUNT AND DIFFERENTIAL (09/01/2024 4:17 AM EDT) Only the most recent of7 resultswithin the time period is included. WBC 7.56 3.70 - 11.00 k/uL 09/01/2024 4:54 AM EDT [facility] RBC 2.90(L) 3.90 - 5.20 m/uL 09/01/2024 4:54 AM EDT [facility] Hemoglobin 9.5(L) 11.5 - 15.5 g/dL 09/01/2024 4:54 AM EDT [facility] Hematocrit 28.1(L) 36.0 - 46.0 % 09/01/2024 4:54 AM EDT [facility] MCV 96.9 80.0 - 100.0 fL 09/01/2024 4:54 AM EDT [facility] MCH 32.8 26.0 - 34.0 pg 09/01/2024 4:54 AM EDT [facility] MCHC 33.8 30.5 - 36.0 g/dL 09/01/2024 4:54 AM EDT [facility] RDW-CV 19.4(H) 11.5 - 15.0 % 09/01/2024 4:54 AM EDT [facility] Platelet Count 210 150 - 400 k/uL 09/01/2024 4:54 AM EDT [facility] MPV 9.4 9.0 - 12.7 fL 09/01/2024 4:54 AM EDT [facility] Neutrophils % 77.9 % 09/01/2024 4:54 AM EDT [facility] Abs Neut 5.88 1.45 - 7.50 k/uL 09/01/2024 4:54 AM EDT [facility] Lymphocytes % 16.1 % 09/01/2024 4:54 AM EDT [facility] Abs Lymph 1.22 1.00 - 4.00 k/uL 09/01/2024 4:54 AM EDT [facility] Monocytes % 5.0 % 09/01/2024 4:54 AM EDT [facility] Abs [place] 0.38 <0.87 k/uL 09/01/2024 4:54 AM EDT [facility] Eosinophils % 0.0 % 09/01/2024 4:54 AM EDT [facility] Abs Eosin <0.03 <0.46 k/uL 09/01/2024 4:54 AM EDT [facility] Basophils % 0.1 % 09/01/2024 4:54 AM EDT [facility] Abs Baso <0.03 <0.11 k/uL 09/01/2024 4:54 AM EDT [facility] Immature Granulocytes % 0.9 % 09/01/2024 4:54 AM EDT [facility] Abs Immature Gran 0.07 <0.10 k/uL 025 4:54 AM EDT [facility] NRBC 0.0 /100 WBC 09/01/2024 4:54 AM EDT [facility] Absolute nRBC <0.01 <0.01 k/uL 09/01/2024 4:54 AM EDT [facility] Diff Type Auto 09/01/2024 4:54 AM EDT [facility] Blood BLOOD SPECIMEN / Unknown Venipuncture / Unknown 09/01/2024 4:17 AM EDT 09/01/2024 4:30 AM EDT us Deena Payan DO LABORATORY Final Result [facility] [address] [place] [address], [place] * (ABNORMAL) AMIKACIN PRE DOSE (08/31/2024 8:53 AM EDT) Only the most recent of2 resultswithin the time period is included. Amikacin, Pre Dose <0.8(L) 5.0 - 8.0 ug/mL 08/31/2024 11:37 AM EDT [facility] Comment: Reference ranges and high/low indicator flags are provided as general guidelines only. The treating physician must determine appropriate target levels/dosing based on the specific clinical situation. Result rechecked. Blood BLOOD SPECIMEN / Unknown Venipuncture / Unknown 08/31/2024 8:53 AM EDT 08/31/2024 9:00 AM EDT us Deena Payan DO LABORATORY Final Result [facility] [address] [address], [place] * MRI BRAIN WO/W IVCON (08/31/2024 7:44 AM EDT) Anatomical Region Laterality Modality Head Magnetic Resonan ce 08/31/2024 7:44 AM EDT Impressions 08/31/2024 7:56 AM EDT IMPRESSION: 1. Multiple enhancing lesions representing metastasis. 2. At least 3 definite metastasis with dominant in inferior vermis. 3. Enhancement at left IAC apex is of unclear etiology. Bander And Cellophaner Helper Machine: [facility] Transcribe Date/Time: Aug 31 2024 7:49A Dictated by : ANA BULLARD MD This examination was interpreted and the report reviewed and electronically signed by: ANA BULLARD MD on Aug 31 2024 7:54AM EST Narrative 08/31/2024 7:56 AM EDT * * *Final Report* * * DATE OF EXAM: Aug 31 2024 7:44AM Q 0295 - MRI BRAIN WO/W IVCON / [...] mass effect or collections. Procedure Note Provider, [facility] - 08/31/2024 * * *Final Report* * * DATE OF EXAM: Aug 31 2024 7:44AM [facility] 0295 - MRI BRAIN WO/W IVCON / [...] left IAC apex is of unclear etiology. Bander And Cellophaner Helper Machine: CARLOS Transcribe Date/Time: Aug 31 2024 7:49A Dictated by : ANA BULLARD MD This examination was interpreted and the report reviewed and electronically signed by: ANA BULLARD MD on Aug 31 2024 7:54AM EST [facility] Final Result * SURGICAL PATHOLOGY (08/30/2024 12:40 PM EDT) Case Report Surgical Pathology Report Case: [id number] Authorizing Provider: Leonidas Colorado MD Collected: 08/30/2024 12:40 PM Ordering Location: Admitting Received: 08/30/2024 01:02 PM Pathologist: Tracie Hutchinson MD Specimens: A) - Soft Tissue (Not otherwise specified), right breast skin B) - Hardware/Device/Fo reign Body, right breast medical lab director 09/01/2024 2:20 PM EDT [facility] FINAL DIAGNOSIS A. Right breast skin, excision: - Carcinoma involving dermis, see comment. B. Right breast, medical lab director removal: - Grossly unremarkable, collapsed, textured medical lab director (Gross examination only). SS/MLG 09/01/2024 2:20 PM EDT [facility] at 1420 EDT Diagnosis Comment The morphologic features are compatible with breast origin. The lesion measures up to 10 mm and extends to inked specimen margins. ER, AL and HER2 are pending and will be reported separately. 09/01/2024 2:20 PM EDT [facility] Gross Description A. Soft Tissue [...] 08/30/24 4:17 PM Gross examination performed at [facility], [address] [place] [address] B. Hardware/Device/Fo reign Body Received fresh labeled as right breast tissue medical lab director is a collapsed textured medical lab director weighing 144.10 g and measuring 15.0 x 14.0 x 2.0 cm with the following inscription ALLOX2 SIENTRA FH 14 . No soft tissue is present. No sections are submitted. The specimen is reviewed with Dr. Kerns. Gross examination only. [facility] 08/30/24 1:20 PM Gross examination performed at [facility], [address] [place] [address] 09/01/2024 2:20 PM EDT [facility] Clinical History Pre-op diagnosis: Cancer (HCC) [C80.1] History of reconstruction of both breasts [Z98.890] 09/01/2024 2:20 PM EDT [facility] Performing Lab Diagnostic interpretation performed at: [facility], [address] [place] [address], [place] [address] CLIA# [id number] Hay Sorter: Derick Meadows MD 09/01/2024 2:20 PM EDT [facility] Disclaimer Laboratory Developed Test (LDT) Disclaimer: Performance characteristics of immunohistochemica l, immunofluorescent, and chromogenic in-situ hybridization tests have been determined by the performing laboratory within [facility]'s [facility] Taylor Pathology and Laboratory Medicine Department ([facility], [facility], [facility], [facility], [facility], [facility], or [facility]) in a manner consistent with CLIA requirements. One or more of these tests may not have been cleared or approved by the FDA. [facility] is regulated under CLIA as qualified to perform high-complexity testing. These tests are used for clinical purposes. These should not be regarded as investigational or for research. Positive and negative controls stain appropriately. 09/01/2024 2:20 PM EDT [facility] Tissue SOFT TISSUE SPECIMEN / [...] [place] MD SURGICAL PATHOLOGY Final Resu lt [facility] [address] [place] [address], * BREAST MARKERS (08/30/2024 12:40 PM EDT) ER status Low Positive (1%-10%) 5 2:59 PM EDT [facility] ER % staining 5 5 2:59 PM EDT [facility] Estrogen Receptor (Average Staining Intensity) Weak 5 2:59 PM EDT [facility] Estrogen Receptor Status of Internal Control Absent 5 2:59 PM EDT [facility] Estrogen Receptor External Control Present and Stained as Expected 5 2:59 PM EDT [facility] AL status Negative (less than 1%) 5 2:59 PM EDT [facility] AL % staining 0 5 2:59 PM EDT [facility] Progesterone Receptor (Average Staining Intensity) Not Applicable 5 2:59 PM EDT [facility] Progesterone Receptor Status of Internal Control Absent 5 2:59 PM EDT [facility] Progesterone Receptor External Control Present and Stained as Expected 5 2:59 PM EDT [facility] HER2 IHC Status Negative for HER2 Overexpression 5 2:59 PM EDT [facility] HER2 IHC Score 0 5 2:59 PM EDT [facility] Comment: HER2 Ultralow assessment for [...] X, Bethany R, Aurelia K, Jack CH, OMelvin JA, Mary H, Deya HeardY, Hank Q, Elena C, Andreas L, Oliver J, Im SA, L danish C, Praveen W, Sera N, Fabio J, Rodrigo G, Gilma G; [id number] Trial Investigators. Trastuzumab Deruxtecan after Endocrine Therapy in Metastatic Breast Cancer. N Engl J Med. 2023Nov 14. doi: 10.1056/YCSYco3930170. Epub ahead of print. PMID: 45813234. Sedrick Mckee, Amando Heard, Bill B, Azra A, John B, Mayco H, Yoshi E, Harpreet N, Pankaj Berry. Development and Validation of a HER2-Low Focused Immunohistochemical Scoring System With High-Interobserver Concordance: The [place] HER2-Low Breast Cancer Concordance Study. Mod Pathol. 2023;37(8):780718. doi: 10.1016/j.modpat.2023.283973. Epub 2023Aug 07. PMID: 77677292. Tumor Type Carcinoma 5 2:59 PM EDT [facility] Breast Tumor Grade Not Graded 5 2:59 PM EDT [facility] 5 2:59 PM EDT [facility] Block ID A2 5 2:59 PM EDT [facility] Fixative Formalin, 10% Neutra l Buffered 5 2:59 PM EDT [facility] Cold Ischemia Time Not Provided 5 2:59 PM EDT [facility] Total Fixation Time Not Provided 5 2:59 PM EDT [facility] Latest ASCO/CAP guidelines for fixation met Indeterminate (See Comment) 5 2:59 PM EDT [facility] Was Specimen Decalcified No 5 2:59 PM EDT [facility] Interpretation Comment and Reference Range Reference Range for Hormone Receptors: Staining for AL of greater than or equal to 1% of the tumor cells is considered positive. Staining for ER of 1-10% of the tumor cells is considered low positive. Staining for ER of greater than 10% of the tumor cells is considered positive. Staining for ER or AL of less than 1% is considered negative. [...] to ER-negative cancers. 5 2:59 PM EDT [facility] Method Estrogen Receptor: Food and Drug Administration (FDA) cleared: [employer], [place], [place] Primary Antibody: SP1 Progesterone Receptor: FDA cleared: [employer], [place], [place] Primary Antibody: IE2 HER2 (ERBB2) by IHC: FDA cleared: [employer], [place], [place] Primary Antibody:4B5 The hormone receptor tests were performed and reported in accordance with the guidelines approved by the [place] Society of Clinical Oncologists and the College of [place] Pathologists. Micaela SOTO, et al. Estrogen and Progesterone Receptor Testing in Breast Cancer: [place] Society of Clinical Oncologists and the College of [place] Pathologists Guideline Update. Arch Pathol Lab Med. 2019;144(5):545-563. PMID: [id number]. The hormone receptor assays have been internally validated on decalcified tissues (for [facility] only). Estrogen and progesterone receptor results are valid if tissue was processed according to ASCO/CAP guidelines. Antibody and Detection System: Carrier's Pathway anti-HER2 rabbit monoclonal antibody (clone 4B5), Carrier Confirm anti-estrogen receptor rabbit monoclonal antibody (clone SP1) and Carrier anti-progesterone receptor rabbit monoclonal antibody (clone IE2) detected with the Etopus UltraView Univeral DAB Detection Kit (indirect biotin-free detection), [employer], [place], [place]. Control Slides: Cell line controls with high, equivocal, low, and negative HER2 protein expression, along with known positive control tissue and the patient's tissue, are evaluated for HER2 expression. The HER2 immunohistochemistry assay was developed, validated, scored, and reported in accordance with the guidelines approved by the [place] Society of Clinical Oncologists and the College of [place] Pathologists. Bacilio SIEGEL et al. Arch Pathol Lab Med. 2018;1379(9) The HER2 assay has not been validated on decalcified tissues. Given the possibility of false negative results on decalcified specimens, results should be interpreted with caution. 5 2:59 PM EDT [facility] Disclaimer Laboratory Developed Test (LDT) Disclaimer: Performance characteristics of immunohistochemical, immunofluorescent, and chromogenic in-situ hybridization tests have been determined by the performing laboratory within [facility]'s [facility] ([facility], [facility], [facility], [facility], [facility], [facility], or [facility]) in a manner consistent with CLIA requirements. One or more of these tests may not have been cleared or approved by the FDA. [facility] is regulated under CLIA as qualified to perform high-complexity testing. These tests are used for clinical purposes. These should not be regarded as investigational or for research. Positive and negative controls stain appropriately. 2:59 PM EDT [facility] Performing Lab Diagnostic interpretation performed at: [facility], [address] [place] [address], [place] [address] CLIA# [id number] Hay Sorter: Derick Meadows MD Electronically signed out by: Tracie Hutchinson MD 2:59 PM EDT [facility] Tissue SOFT TISSUE SPECIMEN / Unknown 08/30/2024 12:40 PM EDT 09/04/2024 9:07 AM EDT us Leonidas [place] MD SURGICAL PATHOLOGY Final Resu lt [facility] [address] [place] [address], * Airway (08/30/2024 12:30 PM EDT) Narrative [...] Successful intubation technique: video laryngoscopy Devices used: The Roundtable Endotracheal tube insertion site: oral Blade: Bo Blade size: #3 ETT size (mm): 7.0 Measured from: lips Measurement (cm): 22 Placement verified by: capnometry Cormack-Lehane Classification: grade I - full view of glottis Number of attempts at approach: 1 us Negar Butler MD ANESTHESIA ORDERABLES Final Resu lt * XR CHEST 1V FRONTAL PORT (08/27/2024 9:35 AM EDT) Anatomical Region Laterality Modality Chest Radiographic Barbara ging 08/27/2024 9:35 AM EDT Impressions 08/27/2024 9:53 AM EDT IMPRESSION: See result Bander And Cellophaner Helper Machine: CARLOS Transcribe Date/Time: Aug 27 2024 9:51A [...] limits for portable projection. Other: Soft tissue medical lab director is identified in the RIGHT breast with adjacent surgical clips. There is scoliosis of the thoracolumbar spine. Procedure Note Provider, [facility] - 08/27/2024 * * *Final Report* * [...] limits for portable projection. Other: Soft tissue medical lab director is identified in the RIGHT breast with adjacent surgical clips. There is scoliosis of the thoracolumbar spine. 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 Bander And Cellophaner Helper Machine: CARLOS Transcribe Date/Time: Aug 26 2024 10:00P Dictated by : GEORGIANA CARMICHAEL MD This examination was interpreted and the report reviewed and electronically signed by: GEORGIANA CARMICHAEL MD on Aug 26 2024 10:02PM EST Narrative 08/26/2024 10:05 PM EDT * * *Final Report* * * DATE OF EXAM: Aug 26 2024 9:58PM [facility] 0007 - CT BRAIN WO/W IVCON / [...] soft tissues are unremarkable. Procedure Note Provider, [facility] - 08/26/2024 * * *Final Report* * * DATE OF EXAM: Aug 26 2024 9:58PM [facility] 0007 - CT BRAIN WO/W IVCON / [...] with vasogenic edema and local mass effect. Bander And Cellophaner Helper Machine: CARLOS Transcribe Date/Time: Aug 26 2024 10:00P Dictated by : GEORGIANA CARMICHAEL MD This examination was interpreted and the report reviewed and electronically signed by: GEORGIANA CARMICHAEL MD on Aug 26 2024 10:02PM EST us Nohemimichaelle Luis Alberto DO CT-PAMA Final Result * ECG COMPLETE [...] [facility] Calculated P Decker 37 degrees [facility] Calculated R Decker 7 degrees [facility] Calculated T Decker 65 degrees [facility] 08/26/2024 6:20 PM EDT Impressions [facility] - 09/08/2024 1:41 PM EDT NORMAL SINUS RHYTHM WITH 1ST DEGREE AV BLOCK LOW VOLTAGE PRECORDIAL LEADS BORDERLINE ECG Confirmed by fellow NAYAN JAMESON, SUDHA ([id number]) on 09/08/2024 11:22:04 AM Confirmed by MD TRICE, PhD, ISA ([id number]) on 09/08/2024 1:41:33 PM Narrative [facility] - 09/08/2024 1:41 PM EDT NAME : YASMIN JONES PID : [id number] : 1970 Gender : Female Race : ORD : [id number] Procedure Date : Aug 26 2024 18:20:39 Edit Date : Sep 08 2024 13:41:36 Diagnosis: NORMAL SINUS RHYTHM WITH 1ST DEGREE AV BLOCK LOW VOLTAGE PRECORDIAL LEADS BORDERLINE ECG Confirmed by fellow NAYAN JAMESON, SUDHA ([id number]) on 09/08/2024 11:22:04 AM Confirmed by MD TRICE, PhD, ISA ([id number]) on 09/08/2024 1:41:33 PM Test Reason : Check QT Location : 170 : G70 G070-30 Overread By : MD TRICE, PhD,ISA Edited By : MD TRICE, PhD,ISA Referred By : PK BOSCH Acquired by : GEORGIANA BUNCH us Dwayne Sahu DO EKG Final Result [facility] [address] [place] [address] from Last 3 Months Insurance [facility] MEDICAID OF [place] Advance Directives * Full Code (Latest Code Status on File) Date Activated Date Inactivated Comments 08/26/2024 2:51 PM 09/01/2024 5:08 PM Question Answer Comments Full Code Order Discussed With: Patient and Surr ogate Decision Maker Surrogate Decision Maker Name: Jean Carlos Becker Surrogate Decision Maker Relationship: Spouse Care Teams Data Developer Relationship Specialty Start Date End Date Amy Collier NP [address] [place] [address] PCP - General Family Medicine 09/27/24 Carolina Munguia APRN [address] [facility] [address] [facility] [place] [address] 12/04/23 Jessica Hope MD [address] [place] [address] Referring Hematology/Oncology 06/14/24 Shereen Smallwood PA-C [address] [facility] [address] [place] [address] [facility] Referring Orthopedics 06/15/24 [place] [address] [place] [address] Specialty Coal Briquette Machine Operator Hematology/Oncology 07/31/24
--- OUTSIDE RECORDS SUMMARY | 2024-11-02 12:01 | XMS_ITS | Encounter Summary ---
Author Organization [id number] [address] [place] [address] Care Team Providers Care Power Crane Operator Name Role Phone Amy Collier MESS ATTENDANT-SHRIMP PEELER Primary Care Provider + Encounter Details Date Type Department Care Team (Late st Contact Info) Description 09/14/2023 Orders Only [facility] Internal Medicine - Family Medicine [address] [place] [phone] Ref Prov, [place] [address] Social History Tobacco Use Types Packs/Day Years [...] How often do you attend chur or shinto services? More than 4 times [...] Answer Date Recorded Total Score 0 03/07/2022 [facility] of Occupat ional Health - [...] file Travel History Travel Start Travel End [place] 09/13/2024 10/26/2024 documented as of this encounter Plan of Treatment Upcoming Encounters Date Type Department Care Team (Late st Contact Info) Description 11/16/2024 1:30 PM EDT Office Visit [facility]astic [facility] [address] [place] [address] Marisela Davila, MESS ATTENDANT-SHRIMP PEELER [address], [address] [facility] [place] [address] documented as of this encounter [...] Infection Onset Date Last Indicated Resolved Time CIRCULATION SUPERVISOR Comment:LT CHEST WALL TISSUE(08/12/24) 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
--- OUTSIDE RECORDS SUMMARY | 2024-11-02 12:01 | XMS_ITS | Encounter Summary ---
Author Organization [facility] Address [id number] [address] [place] [address] Care Team Providers Care Pipe Line Repairer Name Role Phone Amy Collier ORE CRUSHING DUST COLLECTOR-SHEET METAL TECHNICIAN Primary Care Provider + Encounter Details Date Type Department Care Team (Late st Contact Info) Description 03/30/2023 Orders Only [facility] - Family Medicine [address] [place] [phone] Amy Collier APRN-SHEET METAL TECHNICIAN [address] [place] [address] Social History Tobacco Use Types Packs/Day Years [...] any clubs o r organizations such as latter day groups, unions, fraternal or athletic groups, or [...] Answer Date Recorded Total Score 0 03/07/2022 [facility] [place] of Occupat ional Health - Occupational Stress [...] to let her know that I called Suzanne and they did not see the results [...] Surgery [address] [place] [address] Marisela Davila ORE CRUSHING DUST COLLECTOR-SHEET METAL TECHNICIAN [address], [facility] [address] [place] [address] documented as of this encounter Visit Diagnoses Not on filedocumented in this encounter Additional Health Concerns Infection Onset Date Last Indicated Resolved Time LUNCH WAGON OPERATOR Comment:LT CHEST WALL TISSUE(08/12/24) 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
--- OUTSIDE RECORDS SUMMARY | 2024-11-02 12:01 | XMS_ITS | Encounter Summary ---
Author Organization [facility] Address [id number] [address] [place] [address] Care Team Providers Care Deputy District Customs Director Name Role Phone Amy Collier EXTRACTION SUPERVISOR-FACILITY MANAGER Primary Care Provider + Encounter Details Date Type Department Care Team (Late st Contact Info) Description 08/31/2023 Orders Only [facility] - Family Medicine [address] [place] [phone] Kodi Monteiro CMA Malignant neoplasm of right female breast, unspecified estrogen receptor status, unspecified site of breast ([facility] Social History Tobacco Use Types Packs/Day Years [...] Answer Date Recorded Total Score 0 03/07/2022 [facility] of Occupat ional Health - Occupational Stress [...] file Travel History Travel Start Travel End [place] 09/13/2024 10/26/2024 documented as of this encounter Plan of Treatment Upcoming Encounters Date Type Department Care Team (Late st Contact Info) Description 11/16/2024 1:30 PM EDT Office Visit [facility] [address] [facility] [address] [facility] [place] [address] Marisela Davila EXTRACTION SUPERVISOR-FACILITY MANAGER [address] [facility] [address] [facility] [place] [address] documented as of this encounter Visit Diagnoses Diagnosis Malignant neoplasm of right female breast, unspecified estrogen receptor status, unspecified site of breast ([facility]) documented in this encounter Additional Health Concerns Infection Onset Date Last Indicated Resolved Time RETICLE PRINTER Comment:LT CHEST WALL TISSUE(08/12/24) 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
--- OUTSIDE RECORDS SUMMARY | 2024-11-02 12:01 | XMS_ITS | Encounter Summary ---
Author Organization [facility] Address [id number] [address] [place] [address] Care Team Providers Care Cloth Shearing Supervisor Name Role Phone Amy Collier HOME HEALTH CAREGIVER-FISHING LURE ASSEMBLER Primary Care Provider + Encounter Details Date Type Department Care Team (Late st Contact Info) Description 11/03/2023 Orders Only [facility] - Family Medicine [address] [place] [address] External, Scanning Provider Social History Tobacco Use Types Packs/Day Years Used Date Smoking Tobacco: Never Smokeless Tobacco: Never Alcohol Use Standard Drinks/Week Comments Yes 0 (1 standard drink = 0.6 oz pur e alcohol) Socially [facility] Utilities Answer Date Recorded In the past 12 months has [employer] electric, gas, oil, or water company threatened [...] any clubs o r organizations such as latter-day groups, unions, fraternal or athletic groups, or [...] Date Recorded Total Score 0 03/07/2022 [facility] [place] of Occupat ional Health - Occupational Stress [...] Reconstructive Surgery [address] [place] [address] Marisela Davila APRN-FISHING LURE ASSEMBLER [address], [address] [place] [address] documented as of this encounter [...] Infection Onset Date Last Indicated Resolved Time MASTER [place] Comment:LT CHEST WALL TISSUE(08/12/24) 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
--- OUTSIDE RECORDS SUMMARY | 2024-11-02 12:02 | XMS_ITS | Encounter Summary ---
Author Organization [facility] Address [id number] [address] [place] [address] Care Team Providers Care Finished Goods Inspector Name Role Phone Amy Collier GINNING OPERATOR-AIRWAY CONTROLLER Primary Care Provider + Encounter Details Date Type Department Care Team (Late st Contact Info) Description 04/23/2023 Orders Only [facility] - Family Medicine [address] [place] [address] External, Scanning Provider Social History [...] Answer Date Recorded Total Score 0 03/07/2022 [facility] of Occupat ional Health [...] Recorded Do you need help finding a [facility] career center and/or a training program? [...] file Travel History Travel Start Travel End [place] 09/13/2024 10/26/2024 documented as of this encounter Plan of Treatment Upcoming Encounters Date Type Department Care Team (Late st Contact Info) Description 11/16/2024 1:30 PM EDT Office Visit [facility] [address] [facility] [address] [place] [phone] Mariseal Davila APRN-AIRWAY CONTROLLER [address], [address] [place] [address] documented as of this encounter [...] Onset Date Last Indicated Resolved Time FIELD SPEC Comment:LT CHEST WALL TISSUE(08/12/24) 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
--- OUTSIDE RECORDS SUMMARY | 2024-11-02 12:02 | XMS_ITS | Encounter Summary ---
Author Organization [facility] Address [id number] [address] [place] [address] Care Team Providers Care Technical Illustrations Map Inker Name Role Phone Amy Collier ESL TUTOR-ACCOUNTS CLERK Primary Care Provider + Encounter Details Date Type Department Care Team (Late st Contact Info) Description 04/27/2023 Orders Only [facility] - Family Medicine [address] [place] [address] External, Scanning Provider Social History [...] How often do you attend chur or quaker services? 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
--- OUTSIDE RECORDS SUMMARY | 2024-11-02 12:02 | XMS_ITS | Encounter Summary ---
Author Organization [facility] Address [facility] [place] [address] Care Team Providers Care Manager Strategy Name Role Phone Carolina Munguia APRN Unavailable [phone] Jessica Hope MD Unavailable [phone] Lynda Manuel ENVIRONMENTAL QUALITY ANALYST Primary Care Provider [phone] Shereen Smallwood PA-C Unavailable [phone] Radha Martinez RN Unavailable Amy Collier NP Primary Care Provider [phone] Source Comments In the event this information is protected by the Federal Confidentiality of Alcohol and Drug AbusePatient Records regulations: The Federal rules restrict any use of the information to criminally investigate or prosecute any alcohol or drug abuse patient.[facility] Reason for Referral * MRI/CT (Routine) - Pending Review Specialty Diagnoses / Procedures Referred By Jose olmdeo Referred To Contact MR IMAGING Diagnoses Secondary malignant neoplasm of brain (HCC) Procedures MRI BRAIN WO/W IVCON MRI BRAIN BRAIN STEM W/O W/CONTRAST MATERIAL Carlos Mccain DO, PhD [address] [place] [address] Phone: tel: fax: [place] [address] Referral ID Status Reason Start Date Expiration Date Visits Requested Visits Authorized [id number] Pending Review Auto-Generat ed Referral 09/01/2024 10/01/2025 1 1 * MRI/CT (Routine) - Closed Specialty Diagnoses / Procedures Referred By Jose t Referred To Contact MR IMAGING Diagnoses Secondary malignant neoplasm of brain (HCC) Procedures MRI BRAIN LOCALIZATION W IVCON MAGNETIC RESONANCE ELASTOGRAPHY Carlos Mccain DO, PhD [address] [place] [address] Phone: tel: fax: [place] [phone] Referral ID Status Reason Start Date Expiration Date V isits Requested Visits Authorized [id number] Closed Auto-Generate d Referral 09/05/2024 10/20/2024 1 1 Encounter Details Date Type Department Care Team (Late st Contact Info) Description 09/01/2024 Cure Form [facility] [address] [place] [address] Carlos Mccain DO, PhD [address] [place] [address] Secondary malignant neoplasm of brain (HCC) (Primary Dx) Social History Tobacco Use Types Packs/Day Years Used Date Smoking Tobacco: Never Passive Smoke Exposure: Never Smokeless Tobacco: Never Alcohol Use Standard Drinks/Week Comments Not Currently 0 (1 standard drink = 0.6 oz pur e alcohol) Occasional wine [employer] Utilities Answer Date Recorded In the past 12 months has e [employer], gas, oil, or water [employer] threatened to shut off services in your [...] were you homeless or living in a correction (including now)? No 08/29/2024 Area Deprivation Index Answer Date Milton rded National Score (1-100), lower number is lower ri sk 82 07/21/2024 State Score (1-10), lower number is lower risk 7 07/21/2024 Data from: https://www.neighborhoodatlas.medicine.[facility].edu/. Last address used for calculation [address] [...] AM EDT Appointment [facility] [place] [address] [facility] [address] [place] [address] With Perfusion 12/01/2024 2:00 PM EDT [facility] [address] [place] [address] Carlos Mccain DO, PhD [address] [facility] [address] [place] [address] Established patient Visit with Dr. Mccain for [...] an incidental meningioma. No new enhancing lesion. Quantitative Equity Head: [facility] Transcribe Date/Time: Sep 07 2024 8:44A [...] basal cisterns are patent. Procedure Note Provider, [facility] - 09/07/2024 * * *Final Report* * [...] an incidental meningioma. No new enhancing lesion. Quantitative Equity Head: [facility] Transcribe Date/Time: Sep 07 2024 8:44A Dictated [...] cord documented in this encounter Care Teams Manager Strategy Relationship Specialty Start Date End Date Lynda Manuel, ENVIRONMENTAL QUALITY ANALYST [address] [place] [address] PCP - General Family Medicine 06/14/24 09/26/24 Amy Collier NP [address] [place] [address] PCP - General Family Medicine 09/27/24 Carolina Munguia APRN [address] [facility] [address] [facility] [place] [place] [id number] 12/04/23 Jessica Hope MD [address] [place] [address] Referring Hematology/Oncology 06/14/24 Shereen Smallwood PA-C [address] [facility] [address] [facility] [place] [address] [facility] Referring Orthopedics 06/15/24 [place] [address] [place] [address] Specialty Railroad Brakeman Hematology/Oncology 07/31/24 documented as of this encounter
--- OUTSIDE RECORDS SUMMARY | 2024-11-02 12:02 | XMS_ITS | Encounter Summary ---
Author Organization [employer] Address [facility] [id number] [address] [place] [address] Care Team Providers Care Risk Compliance Manager Name Role Phone Amy Collier LOG MARKER-MATERIALS MGMT TECH Primary Care Provider + Encounter Details Date Type Department Care Team (Late st Contact Info) Description 08/22/2024 Telephone [facility] [address] [facility] [address] [place] [address] Viviane Lopez CMA Social History Tobacco Use Types Packs/Day Years Used Date Smoking Tobacco: Never Passive Smoke Exposure: Past Smokeless Tobacco: Never Alcohol Use Standard Drinks/Week Comments Not Currently 0 (1 standard drink = 0.6 oz pur e alcohol) [facility] Utilities Answer Date Recorded In the past 12 months has [employer] electric, gas, oil, or water [employer] threatened to shut off services in your [...] Answer Date Recorded Total Score 0 08/10/2024 [facility] of Occupat ional Health - Occupational [...] Travel Start Travel End [place] 09/13/2024 10/26/2024 documented as of this encounter Miscellaneous Notes * Telephone Encounter - Viviane Lopez CMA - 08/22/2024 4:[address] [facility] Microbiology lab Radha called she said they have a positive culture for rico of her left breast they be reached at [phone] * Telephone Encounter - AMEENA Kennedy - 08/22/2024 4:54 PM EDT Called micro back. Positive [employer]. This is known for the patient. Currently seeing ID documented in this encounter Plan of Treatment Upcoming Encounters Date Type Department Care Team (Late st Contact Info) Description 11/16/2024 1:30 PM EDT Office Visit [facility] Plastic and Reconstructive Surgery [address] [facility] [address] [place] [address] Marisela Davila APRN-CNP [address], [facility] 280 [place] [address] documented as of this encounter [...] Onset Date Last Indicated Resolved Time BARREL MAKER Comment:LT CHEST WALL TISSUE(08/12/24) 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
--- OUTSIDE RECORDS SUMMARY | 2024-11-02 12:02 | XMS_ITS | Encounter Summary ---
Author Organization [facility] Address [address] [place] [address] Care Team Providers Care Butter Printer Name Role Phone Carolina Munguia APRN Unavailable [phone] Jessica Hope MD Unavailable [phone] Lynda Manuel ENDOSCOPY TECHNICIAN Primary Care Provider [phone] Shereen Smallwood PA-C Unavailable [phone] Radha Martinez RN Unavailable Amy Collier YARN DYER Primary Care Provider [phone] Source Comments In the event this information is protected by the Federal Confidentiality of Alcohol and Drug AbusePatient Records regulations: The Federal rules restrict any use of the information to criminally investigate or prosecute any alcohol or drug abuse patient.[facility] Encounter Details Date Type Department Care Team (Late st Contact Info) Description 09/05/2024 [place] [address] Provider, Ccf Questionnaire Submission Social History Tobacco Use Types Packs/Day Years Used Date Smoking Tobacco: Never Passive Smoke Exposure: Never Smokeless Tobacco: Never Alcohol Use Standard Drinks/Week Comments Not Currently 0 (1 standard drink = 0.6 oz pur e alcohol) Occasional wine [facility] Utilities Answer Date Recorded In the [...] any time in the past 12 m [facility], were you homeless or living in a half-way (including now)? No 08/29/2024 Area Deprivation Index Answer Date Milton rded National Score (1-100), lower number is lower ri sk 82 07/21/2024 State Score (1-10), lower number is lower risk 7 07/21/2024 Data from: https://www.neighborhoodatlas.medicine.[facility].edu/. Last address used for calculation [address] [...] Info) Description 11/29/2024 10:20 AM EDT Appointment [facility] [place] [address] [place] [address] With Perfusion 12/01/2024 2:00 PM EDT [facility] [address] [place] [address] Carlos Mccain DO, PhD [address] [place] [address] Established patient Visit with Dr. Mccain for MRI review and follow up documented as of this encounter Visit Diagnoses Not on filedocumented in this encounter Care Teams Butter Printer Relationship Specialty Start Date End Date Lynda Manuel, ENDOSCOPY TECHNICIAN [address] [place] [address] PCP - General Family Medicine 06/14/24 09/26/24 Amy Collier NP [address] [place] [address] PCP - General Family Medicine 09/27/24 Carolina Munguia APRN [address] [facility] [address] [place] [address] 12/04/23 Jessica Hope MD [address] [place] [address] Referring Hematology/Oncology 06/14/24 Shereen Smallwood PA-C [address] [facility] [address] [place] [address] [facility] Referring Orthopedics 06/15/24 [place] [address] [place] [address] Specialty Cement Mason Maintenance Hematology/Oncology 07/31/24 documented as of this encounter
--- OUTSIDE RECORDS SUMMARY | 2024-11-02 12:02 | XMS_ITS | Encounter Summary ---
Author Organization [facility] Address [address] [place] [address] Care Team Providers Care Paradichlorobenzene Machine Operator Name Role Phone Randy Lu MD Primary Care Provider [phone] Encounter Details Date Type Department Care Team (Late Contact Info) Description 2024 Abstract [facility] Suzanne DE SOU[facility] [place] [address] Evan Thompson DO [facility] Bradley Carolina Palacios, [facility]11 Social History Tobacco Use Types [...] [facility] Suzanne [facility]OU[facility] [address] [place] [address] Evan Thompson DO [address] [place], [facility]11 documented as of this encounter Visit Diagnoses Not on filedocumented in this encounter Care Teams Paradichlorobenzene Machine Operator Relationship Specialty Start Date End Date Randy Lu MD PCP - General Family Medicine 04/02/23 documented as of this encounter
--- OUTSIDE RECORDS SUMMARY | 2024-11-02 12:02 | XMS_ITS | Encounter Summary ---
Author Organization [facility] tem Address [id number] [address] [place] [address] Care Team Providers Care Artillery Specialist Name Role Phone Amy Collier SERVICE ORDER DISPATCHER CHIEF-SHANK CEMENTER HAND Primary Care Provider + Encounter Details Date Type Department Care Team (Late st Contact Info) Description 04/29/2024 Orders Only [facility] - 8 Med-Surg/Ortho [address] [place] [address] Lynda Morillo RN Social History Tobacco Use Types Packs/Day Years Used Date Smoking Tobacco: Never Passive Smoke Exposure: Past Smokeless Tobacco: Never Alcohol Use Standard Drinks/Week Comments Yes 0 (1 standard drink = 0.6 oz pur e alcohol) Socially [employer] Utilities Answer Date Recorded In the past [...] Score 2 03/30/2024 [facility] of Occupat ional Health - Occupational Stress [...] Recorded Do you need help finding a adventist health tehachapial career center and/or a training program? 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
--- OUTSIDE RECORDS SUMMARY | 2024-11-02 12:02 | XMS_ITS | Encounter Summary ---
Author Organization [employer] Address [facility] [id number] [address] [place] [address] Care Team Providers Care Lap Checker Name Role Phone Amy Collier TYPER-REGISTRY NURSE Primary Care Provider + Encounter Details Date Type Department Care Team (Late st Contact Info) Description 04/21/2023 Orders Only [facility] Surgical Oncology [address] [facility] 280 [place] [address] Ref Prov, [place] [address] Social History Tobacco Use Types Packs/Day Years [...] Answer Date Recorded Total Score 0 03/07/2022 [facility] of Occupat ional Health - [...] Recorded Do you need help finding a [facility] career center and/or a training program? 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
--- OUTSIDE RECORDS SUMMARY | 2024-11-02 12:02 | XMS_ITS | Encounter Summary ---
Author Organization [employer] Address [facility] [id number] [address] [place] [address] Care Team Providers Care Household Appliance Mechanic Name Role Phone Amy Collier A&P MECHANIC-SOA INTEGRATION DEVELOPER Primary Care Provider + Encounter Details Date Type Department Care Team (Late st Contact Info) Description 04/07/2024 Telephone [facility] [address] [facility] [address] [place] [address] Viviane Lopez CMA Social History Tobacco Use Types Packs/Day Years Used Date Smoking Tobacco: Never Passive Smoke Exposure: Past Smokeless Tobacco: Never Alcohol Use Standard Drinks/Week Comments Yes 0 (1 standard drink = 0.6 oz pur e alcohol) Socially [facility] Utilities Answer Date Recorded In the past 12 months has [employer] electric, gas, oil, or water [employer] threatened to shut off services in your [...] often do you attend chur ch or mosque services? 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
--- OUTSIDE RECORDS SUMMARY | 2024-11-02 12:02 | XMS_ITS | Encounter Summary ---
Author Organization [employer] Address [facility] [id number] [address] [place] [address] Care Team Providers Care Laboratory Sampler Name Role Phone Amy Collier MACHINE EGG WASHER-RESEARCH PHYSIOLOGIST Primary Care Provider + Encounter Details Date Type Department Care Team (Late st Contact Info) Description 08/24/2024 Telephone [facility] Internal Medicine - Family Medicine [address] [place] [address] Kodi Monteiro CMA Social History Tobacco Use Types Packs/Day Years Used Date Smoking Tobacco: Never Passive Smoke Exposure: Past Smokeless Tobacco: Never Alcohol Use Standard Drinks/Week Comments Not Currently 0 (1 standard drink = 0.6 oz pur e alcohol) [facility] Utilities Answer Date Recorded In the past 12 months has [employer] electric, gas, oil, or water company threatened [...] Answer Date Recorded Total Score 0 08/10/2024 [facility] [place] of Occupat ional Health - Occupational Stress [...] AM EDT Dr No Urena Pharmacist at [facility] called and would like to have a discussion about this pt. Her Lab results indicate some medications need to be addressed. Her Phone number to talk directly to her is [phone] documented in this encounter Plan of Treatment Upcoming Encounters Date Type Department Care Team (Late st Contact Info) Description 11/16/2024 1:30 PM EDT Office Visit [facility] [address] [facility] [address] [place] [address] Marisela Davila, MACHINE EGG WASHER-RESEARCH PHYSIOLOGIST [address], [facility] [address] [place] [address] documented as of this encounter Goals Goal Patient Goal Type Associated Problems Recent Progress Patient-Stated? 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
--- OUTSIDE RECORDS SUMMARY | 2024-11-02 12:02 | XMS_ITS | Encounter Summary ---
Author Organization [employer] Address [facility] [id number] [address] [place] [address] Care Team Providers Care Machine Bander And Cellophaner Helper Name Role Phone Amy Collier PLUG MACHINE OPERATOR-CORPORATE ATTORNEY Primary Care Provider + Encounter Details Date Type Department Care Team (Late st Contact Info) Description 03/10/2023 [facility] Medicine [address] [place] [address] Nat Javed CMA Social History [...] How often do you attend chur or samaritan services? More than 4 times [...] file Travel History Travel Start Travel End [place] 09/13/2024 10/26/2024 documented as of this encounter [...] diagnostic mammogram and US right breast to [facility] - she can call to get that set up today. Herresult was cut off of the right breast but from what I can see they found some lymph enlargement and mass to right breast. 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
--- OUTSIDE RECORDS SUMMARY | 2024-11-02 12:02 | XMS_ITS | Encounter Summary ---
Author Organization [facility] tem Address [id number] [address] [place] [address] Care Team Providers Care Triage Licensed Practical Nurse Name Role Phone Amy Collier PRODUCT DELIVERY SPECIALIST-SHOCHET Primary Care Provider + Encounter Details Date Type Department Care Team (Late st Contact Info) Description 05/02/2024 Orders Only [facility] Division [facility] [address] [place] [address] Rossy Ng RN Social History Tobacco Use Types Packs/Day Years Used Date Smoking Tobacco: Never Passive Smoke Exposure: Past Smokeless Tobacco: Never Alcohol Use Standard Drinks/Week Comments Yes 0 (1 standard drink = 0.6 oz pur e alcohol) Socially [employer] Utilities Answer Date Recorded In the past [...] [address] [facility] [address] [place] [address] Marisela Davila, PRODUCT DELIVERY SPECIALIST-SHOCHET [address], [address] [place] [address] documented as of this encounter Goals Goal Patient Goal Type Associated Problems Recent Progress Patient-Stated? 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
--- OUTSIDE RECORDS SUMMARY | 2024-11-02 12:02 | XMS_ITS | Encounter Summary ---
Author Organization [facility] Address [facility]-[id number] [address] [place] [address] Care Team Providers Care Catalyst Manufacturing Operator Name Role Phone Amy Collier TOOL GRINDER OPERATOR-WOOL SORTER Primary Care Provider + Encounter Details Date Type Department Care Team (Late st Contact Info) Description 08/18/2022 Orders Only [facility] Internal Medicine - Family Medicine [address] [place] [address] External, Scanning Provider Social History [...] How often do you attend chur or yarsani services? More than 4 times per year 02/27/2022 Do you belong to any clubs o r organizations such as scientologist groups, unions, fraternal or athletic groups, or [...] Reconstructive Surgery [address] [place] [address] Marisela Davila APRN-WOOL SORTER [address] [place] [address] documented as of this encounter Procedures Procedure Name Priority Date/Time Associated Diagnosis Comments MULTIPLE LABS Routine 08/15/2022 documented in this encounter Results * Multiple labs (08/15/2022) us Scanning Provider External [facility] Final Result MANUALLY TRANSCRIBED RESULTS documented in this encounter Visit Diagnoses Not on filedocumented in this encounter Additional Health Concerns Infection Onset Date Last Indicated Resolved Time STILL OPERATOR HELPER Comment:LT CHEST WALL TISSUE(08/12/24) 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
--- OUTSIDE RECORDS SUMMARY | 2024-11-02 12:02 | XMS_ITS ---
Author Organization [email or web address]s tem Address [id number] [address] [place] [address] Care Team Providers Care Call Center Nurse Name Role Phone Amy Collier ANIMAL CARE ASSISTANT-MANAGER INTEGRATION Primary Care Provider + Active Problems Problem [...] Cancer Staging:Clinical:Stage IIIC(cT2, cN3, cM0, G3, ER+, OR-, HER2-) - Signed by Christy He MD [...]
--- OUTSIDE RECORDS SUMMARY | 2024-11-02 12:02 | XMS_ITS | Encounter Summary ---
Author Organization [employer] Address [facility]-[id number] [address] [place] [address] Care Team Providers Care Clerical Manager Name Role Phone Amy Collier EXTENSION SERVICE SPECIALIST IN CHARGE-OFFICE MANAGER Primary Care Provider + Reason for Visit * Reason Comments Med Refill Encounter Details Date Type Department Care Team (Late st Contact Info) Description 06/04/2022 Refill [facility] Internal Medicine - Family Medicine [address] [place] [id number] Lynda Manuel, EXTENSION SERVICE SPECIALIST IN CHARGE-HAND HOSE CUTTER [address] [place] [address] Social History Tobacco Use Types Packs/Day Years [...] Answer Date Recorded Total Score 0 03/07/2022 [facility] [place] of Occupat ional Health - Occupational Stress [...] Reconstructive Surgery [address] [place] [address] Marisela Davila, EXTENSION SERVICE SPECIALIST IN CHARGE-OFFICE MANAGER [address] [place] [address] documented as of this encounter Visit Diagnoses Not on filedocumented in this encounter Additional Health Concerns Infection Onset Date Last Indicated Resolved Time AUTO PARTS HANDLER Comment:LT CHEST WALL TISSUE(08/12/24) 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
--- OUTSIDE RECORDS SUMMARY | 2024-11-02 12:02 | XMS_ITS | Encounter Summary ---
Author Organization [employer] Address [facility]-[id number] [address] [place] [address] Care Team Providers Care Database Reporting Consultant Name Role Phone Amy Collier CUSTOMER SERVICE SUPERVISOR-BLIND LACER Primary Care Provider + Encounter Details Date Type Department Care Team (Late st Contact Info) Description 04/27/2024 Telephone [facility] Plastic and Re[facility]ive Surgery [address] [facility] [address] [place] [address] Viviane Lopez CMA Social History Tobacco Use Types Packs/Day Years Used Date Smoking Tobacco: Never Passive Smoke Exposure: Past Smokeless Tobacco: Never Alcohol Use Standard Drinks/Week Comments Yes 0 (1 standard drink = 0.6 oz pur e alcohol) Socially [facility] Utilities Answer Date Recorded In the past 12 months has [employer], gas, oil, or water [employer] threatened to shut off services in [...] often do you attend chur ch or bahai services? 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
--- OUTSIDE RECORDS SUMMARY | 2024-11-02 12:02 | XMS_ITS | Encounter Summary ---
Author Organization [facility] Address [facility] [place] [address] Care Team Providers Care Director Wholesale Name Role Phone Nilda Carolina RICHTER Unavailable [phone] Jessica Hope MD Unavailable [phone] Lynda Manuel RADIOPHONE OPERATOR Primary Care Provider [phone] Shereen Smallwood PA-C Unavailable [phone] Radha Martinez RN Unavailable Amy Collier CUSTOMER SOLUTIONS ARCHITECT Primary Care Provider [phone] Source Comments In the event this information is protected by the Federal Confidentiality of Alcohol and Drug AbusePatient Records regulations: The Federal rules restrict any use of the information to criminally investigate or prosecute any alcohol or drug abuse patient.[facility] Encounter Details Date Type Department Care Team (Late st Contact Info) Description 09/01/2024 Cure Form [facility] [address] [id number] Carlos Mccain DO, PhD [address] [facility] [address] [place] [address] Social History Tobacco Use Types Packs/Day Years Used Date Smoking Tobacco: Never Passive Smoke Exposure: Never Smokeless Tobacco: Never Alcohol Use Standard Drinks/Week Comments Not Currently 0 (1 standard drink = 0.6 oz pur e alcohol) Occasional wine [facility] Utilities Answer Date Recorded In the [...] any time in the past 12 m [facility], were you homeless or living in a mcc (including now)? No 08/29/2024 Area Deprivation Index Answer Date [place] rded National Score (1-100), lower number is lower ri sk 82 07/21/2024 State Score (1-10), lower number is lower risk 7 07/21/2024 Data from: https://www.neighborhoodatlas.medicine.[facility].edu/. Last address used for calculation [address] [...] Info) Description 11/29/2024 10:20 AM EDT Appointment [facility] Radiology MRI [address] [place] [address] With Perfusion 12/01/2024 2:00 PM EDT [facility] [address] [place] [address] Carlos Mccain DO, PhD [address] [facility] [address] [place], [place] [id number] Established patient Visit with Dr. Mccain for MRI review and follow up documented as of this encounter Visit Diagnoses Not on filedocumented in this encounter Care Teams Director Wholesale Relationship Specialty Start Date End Date Lynda Manuel CNP [address] [address] PCP - General Family Medicine 06/14/24 09/26/24 Amy Collier NP [address] [place] [address] PCP - General Family Medicine 09/27/24 Carolina Munguia APRN [address] [facility] [address] [address] 12/04/23 Jessica Hope MD [address] [place] [address] Referring Hematology/Oncology 06/14/24 Shereen Smallwood PA-C [address] [facility] [address] [place] [address] [facility] Referring Orthopedics 06/15/24 [place] [address] [place] [address] Specialty Supervisor Sterile Processing Hematology/Oncology 07/31/24 documented as of this encounter
--- OUTSIDE RECORDS SUMMARY | 2024-11-02 12:02 | XMS_ITS | Clinical Summary ---
Author Organization [employer]oget[employer] tem Address [id number] [address] [place] [address] Care Team Providers Care Forester Silviculture Name Role Phone Amy Collier PROJECT PRODUCTION ENGINEER-CLOTH PAINTER Primary Care Provider + Allergies Active Allergy Reactions Criticality Noted Date Comments Adhesive Rash Low 11/27/2021 Ceftaroline Fosamil Fever Low 06/11/2024 Daptomycin Flushing Low 11/28/2023 Doxycycline Rash Low 12/09/2023 Meperidine Facial Swelling Medium 04/13/2021 Tigecycline Rash,Vomiting Low 12/07/2023 Vancomycin Other (See Comments) Medium 03/21/2024 Acute Kidney Injury Medications ELIQUIS 5 mg tabletIndicat ions:deep venous thrombosis Take 1 tablet (5 mg total) by mouth in the morning and 1 tablet (5 mg total) before bedtime. Indications: blood clot in a deep vein of the extremities. Last dose 10/07/2024. 09/18/19 24 Active magnesium oxide 400 mg [...] morning. 90 tablet 3 12/10/19 24 Active pyridoxine, vitamin B6, (B-6) 50 mg [...] (six) hours. 30 tablet 07/30/19 25 Active Additional Information Patient taking differently:650 mg oralEvery 6 hours PRN, Reported on 10/12/2024 docusate sodium (COLACE) 100 mg capsule Take 2 capsules (200 mg total) by mouth daily as needed for constipation. 07/30/19 25 Active Additional Information Patient not taking.Reported on 10/12/2024 FeroSuL 325 mg (65 mg iron) tablet in the morning and in the evening. Take with meals. 08/11/19 25 Active capecitabine (XELODA) 500 mg chemo tablet Take 3 tablets by mouth 2 (two) times a day 08/04/19 25 Active imipenem-cila statin (PRIMAXIN) 500 mg injection Bid 08/05/19 25 Active acetic acid 0.25 % [...] total) by mouth in the morning. 09/09/19 Active sertraline (ZOLOFT) 50 mg tabletIndicat ions:Reactive depression,An xiety Take 1 tablet (50 mg total) by mouth in the morning. 30 tablet 1 09/24/19 Active enoxaparin (LOVENOX) 40 mg/0.4 mL syringe 10/07/19 Active folic acid (FOLVITE) 1 mg tablet Take 1 tablet (1,000 mcg total) by mouth. 09/21/19 Active nystatin (MYCOSTATIN) 100,000 unit/mL suspension TAKE 5 ML SWISH AND SPIT FOR THRUSH, FOUR TIMES A DAY 09/22/19 Active dexAMETHasone (DECADRON) 4 mg tablet Take 0.5 tablets (2 mg total) by mouth. with breakfast 09/02/19 Active CLOFAZIMINE, BULK, MISC Take 100 mg by mouth in the morning. Capsule for mycobacterial infection. 025 Discontinued acyclovir (ZOVIRAX) 400 mg tablet Take 1 tablet (400 mg total) by mouth in the morning and 1 tablet (400 mg total) before bedtime. 09/02/19 025 Discontinued oxyCODONE (ROXICODONE) 5 mg immediate release tabletIndicat ions:Complica tena wound infection,Candis ast wound, left, sequela Take 1 tablet (5 mg total) by mouth every 4 (four) hours as needed for pain for up to 5 days. Max Daily Amount: 30 mg 20 tablet 10/13/19 25 025 Active Problems Problem Noted Date [...] Cancer Staging:Clinical:Stage IIIC(cT2, cN3, cM0, G3, ER+, OK-, HER2-) - Signed by Christy He MD [...] Encounters Date Type Department Care Team Description 11/01/2024 Telephone [facility] [address] [place] [address] Shanice Johnson RN 10/26/2024 1:30 PM EDT [facility] [address] [place] [address] Marisela Davila, PROJECT PRODUCTION ENGINEER-CLOTH PAINTER Breast wound, left, sequela (Primary Dx); Encounter for postoperative care; Complicated wound infection 10/26/2024 8:30 AM EDT Telephone Visit [facility], A Department of [facility] [address] [place] [phone] Raymond Sepulveda MD 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) (Primary Dx); Malignant neoplasm of lower-inner quadrant of right breast of female, estrogen receptor positive (CMS-HCC) 10/26/2024 Travel 10/25/2024 Orders Only [facility] External [employer] [facility] [place] [address] External, Scanning Provider Pain (Primary Dx) 10/12/2024 2:51 PM EDT Anesthesia Event [facility] Surgery [address] [place] [address] Emmanuelle Lara MD Zucker, Vaibhav Pedro MD 10/12/2024 2:30 PM EDT - 10/12/2024 3:45 PM EDT Surgery [facility] [address] [place] [address] Jhon Rosado MD DEBRIDEMENT BREAST 10/12/2024 12:45 PM EDT - 10/12/2024 4:31 PM EDT Hospital Encounter [facility] [address] [place] [address] Jhon Rosado MD Complicated wound infection (Primary Dx); Breast wound, left, sequela Discharge Disposition: Home 10/11/2024 Travel 2024 4:00 PM EDT Ancillary Procedure [facility] External Film Storage [address] [place] [phone] Pain 2024 2:15 PM EDT Support Visit [facility] On [address] [address] 2024 Orders Only [facility] - Family Medicine [address] [place] [address] Amy Collier, PROJECT PRODUCTION ENGINEER-CLOTH PAINTER 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 ([facility]) (Primary Dx) 10/07/2024 Telephone [facility] [address] [place] [address] Jhon Rosado MD 10/05/2024 1:30 PM EDT Office Visit [facility] [address] [place] [address] Marisela Davila, PROJECT PRODUCTION ENGINEER-CLOTH PAINTER Breast wound, left, sequela (Primary Dx); Infection of deep incisional surgical site after procedure, subsequent encounter 10/05/2024 Travel 09/23/2024 Orders Only [facility] [address] [place] [address] Amy Collier, PROJECT PRODUCTION ENGINEER-CLOTH PAINTER Reactive depression (Primary Dx); Anxiety 09/22/2024 3:15 PM EDT Office Visit [facility] [address] [facility] [place] [address] Jhon Rosado MD 09/22/2024 Travel 09/20/2024 Orders Only [facility] [address] [place] [address] Amy Collier, PROJECT PRODUCTION ENGINEER-CLOTH PAINTER 09/20/2024 Telephone [facility] [address] [place] [address] Susan Horton CMA 09/19/2024 Refill [facility] [address] [place] [address] Amy Collier, PROJECT PRODUCTION ENGINEER-CLOTH PAINTER 09/16/2024 Telephone [facility] [address] [place] [address] Irvin Apodaca MA 09/08/2024 9:45 AM EDT Office Visit [facility] [address] [place] [address] Shereen Smallwood PA-C Breast wound, left, sequela (Primary Dx); Infection of deep incisional surgical site after procedure, subsequent encounter; Malignant neoplasm of lower-inner quadrant of right breast of female, estrogen receptor positive (CMS-HCC); Mycobacterium abscessus infection; S/P breast reconstruction, bilateral 09/08/2024 Travel 09/05/2024 Telephone [facility] [address] [place] [address] Dee Dee Buck RN 08/31/2024 Telephone [facility] [address] [place] [address] Jhon Rosado MD 08/25/2024 Orders Only [facility] [address] [place] [address] Amy Collier, PROJECT PRODUCTION ENGINEER-CLOTH PAINTER 08/24/2024 Telephone [facility] [address] [place] [address] Kodi Monteiro, [facility] 08/22/2024 Telephone [facility] [address] [place] [address] Viviane Lopez [facility] 08/18/2024 3:30 PM EDT Office Visit [facility] [address] [place] [address] Shereen Smallwood, PA-C Breast wound, left, sequela (Primary Dx); Complicated wound infection 08/18/2024 Travel 08/12/2024 10:21 AM EDT Anesthesia Event [facility] Surgery [address] [place] [address] [facility]hav [facility] 08/12/2024 9:10 AM EDT - 08/12/2024 10:40 AM EDT Surgery [facility] Surgery [address] [place] [address] Jhon Rosado MD DEBRIDEMENT LEFT CHEST WALL WOUND 08/12/2024 6:02 AM EDT - 08/12/2024 12:17 PM EDT Hospital Encounter [facility] Surgery [address] [place] [address] Jhon Rosado MD Discharge Disposition: Home 08/12/2024 Telephone [facility] [address] [place] [address] Jhon Rosado MD 08/10/2024 3:30 PM EDT Office Visit [facility] [address] [facility] [place] [address] Dhruv Ortiz DO Mycobacterium abscessus infection (Primary Dx); Malignant neoplasm of lower-inner quadrant of right breast of female, estrogen receptor positive ([facility]) 08/10/2024 10:00 AM EDT Support Visit [facility] On [address] [address] 08/09/2024 Telephone [facility] [address] [facility] [address] [place] [address] Jhon Rosado MD 08/08/2024 9:00 AM EDT Office Visit [facility] [address] [place] [address] Shereen Smallwood PA-C Breast wound, left, sequela (Primary Dx); Complicated wound infection 08/08/2024 Travel 08/04/2024 Orders Only [facility] [address] [place] [address] Shereen Smallwood PA-C 08/03/2024 9:00 AM EDT Office Visit [facility] [address] [place] [address] Shereen Smallwood PA-C Breast wound, left, sequela (Primary Dx); Mycobacterium abscessus infection; Complicated wound infection 08/03/2024 Travel 08/02/2024 Telephone [facility] [address] [phone] Joelle Betancourt, insurance rater Of Care 08/02/2024 Telephone [facility] [address] [place] [address] Mela Berrios RN 08/02/2024 Telephone [facility] [address] [place] [address] Viviane Lopez CMA from Last 3 Months Immunizations Immunization Administration [...] = 0.6 oz pur e alcohol) [facility] Utilities Answer Date Recorded In the past 12 months has e [employer], gas, oil, or water company threatened to [...] any clubs o r organizations such as samaritan groups, unions, fraternal or athletic groups, or [...] Answer Date Recorded Total Score 0 08/10/2024 [facility] - Occupational [...] Recorded Do you need help finding a [facility] career center and/or a training program? No [...] Travel Start Travel End [place] 09/13/2024 10/26/2024 Last Filed Vital Signs Vital Sign Reading Time Taken Comments Blood Pressure 134/81 10/26/2024 1:53 PM EDT Pulse 80 10/26/2024 1:53 PM EDT Temperature 36.4 C (97.5 F) 10/26/2024 1:53 PM EDT Respiratory Rate 16 10/26/2024 1:53 PM EDT Oxygen Saturation 99% 10/12/2024 4:00 PM EDT Inhaled Oxygen Concentration - - Weight 89.6 kg (197 lb 8.5 oz) 10/12/2024 1:35 P M EDT Height 180.3 cm (5' 11 ) 10/26/2024 1:53 PM EDT Body Mass Index 27.55 10/12/2024 1:35 PM EDT Plan of Treatment Upcoming Encounters Date Type Department Care Team (Late st Contact Info) Description 11/16/2024 1:30 PM EDT Office Visit [facility] [address] [place] [address] Marisela Davila, PROJECT PRODUCTION ENGINEER-CLOTH PAINTER [address] [facility] [place] [place] [address] Health Maintenance Due Date Last Done Comments Adult BMI Follow Up Plan 1988 Zoster (Shingles) Vaccine (1 of 2) 1989 COVID-19 Vaccine (2024-2 6 season) 2024 12/06/2020, 12/06/2020, 12/06/2020, Additional history exists Influenza Vaccine 10/31/2024 11/20/2019, , 12/13/2018, Additional history exists Depression Screening 08/10/2025 08/10/2024 Adult BMI Screening 10/12/2025 10/12/2024 Tobacco Screening 10/26/2025 10/26/2024 DTaP,Tdap and Td Vaccines (2 - Td or Tdap) 07/08/2027 07/07/2017 Pap Smear Discontinued 06/01/2024, 04/0 03/2023, 12/27/2021 Goals Goal Patient Goal Type Associated Problems Recent Progress Patient-Stated? 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 Other Implant Left: Breast [employer] 11/11/2025 ALLOX2-FH 14E / [id number] / NA Boilermaker [employer] Tiss [id number] Brst 480-575cc Txtr Intgr Port Allox2 - [id number] - [id number] Implanted:Qty: 1 on 10/28/2023 by Christy He MD at [facility] Other Implant Right: Breast [employer] 11/20/2025 ALLOX2- 14E / [id number] / NA Procedures Procedure Name Priority Date/Time Associated Diagnosis Comments TISSUE CULTURE Routine 10/12/2024 3:13 PM EDT FUNGAL CULTURE INCLUDES FUNGAL SMEAR Routine 10/12/2024 3:13 PM EDT ANAEROBIC CULTURE Routine 10/12/2024 3:1 3 PM EDT DEBRIDEMENT BREAST 10/12/2024 2: 49 PM EDT BREAST WOUND LEFT Case Notes DAVID 45MIN WORKING NON [facility] PET [facility] WHOLE BODY Routine 2024 4:00 PM EDT Pain TISSUE CULTURE Routine 08/12/2024 10:40 AM EDT FUNGAL CULTURE INCLUDES FUNGAL SMEAR Routine 08/12/2024 10:40 AM EDT ANAEROBIC CULTURE Routine 08/12/2024 10: 40 AM EDT DEBRIDEMENT BREAST 08/12/2024 10 :21 AM EDT LEFT AXILLA WOUND Case Notes (EPIC 53) REQ 30 WORKING-RAJNI, GAVE 60 WORKING- SEND OUT TEST Routine 08/11/2024 3:03 PM EDT EXTERNAL LAB ORDERS / RESULTS Routine 08/08/2024 3:30 PM EDT from Last 3 Months Results * Tissue culture includes gram stain (10/12/2024 3:13 PM EDT) Only the most recent of2 resultswithin the time period is included. CULTURE RESULTS NO GROWTH 3 DAYS 10/16/2024 6:42 AM EDT [facility] GRAM STAIN 0 White Blood Cells/LPF 10/16/2024 6:42 AM EDT [facility] GRAM STAIN 0 Squamous Epithelial Cells/LPF 10/16/2024 6:42 AM EDT [facility] GRAM STAIN No organisms seen 10/16/2024 6:42 AM EDT [facility] Tissue (Chest Wall) 10/12/2024 3:13 PM EDT 10/12/2024 3:21 PM EDT Comment:Pre-op diagnosis: BREAST WOUND LEFT us Jhon Rosado MD MICROBIOLOGY - GENERA L ORDERABLES Final Result Performing Organization Address City/[facility]/ZIP Co de Phone Number [facility] [address] [place] [address], * Anaerobic culture (10/12/2024 3:13 PM EDT) Only the most recent of2 resultswithin the time period is included. CULTURE RESULTS NO GROWTH 5 DAYS 10/17/2024 8:55 AM EDT [facility] Tissue (Chest Wall) 10/12/2024 3:13 PM EDT 10/12/2024 3:21 PM EDT Comment:Pre-op diagnosis: BREAST WOUND LEFT us Jhon Rosado MD MICROBIOLOGY - GENERA L ORDERABLES Final Result Performing Organization Address City/[facility]/ZIP Co de Phone Number [facility] [address] [place] [address], * NON [facility] WHOLE BODY (2024 4:00 PM EDT) us Scanning Provider External IMG PET ORDERABLES Fi nal Result * (ABNORMAL) Fungal culture includes fungal smear (08/12/2024 10:40 AM EDT) CULTURE RESULTS Mycobacterium abscessus(A) 09/07/2024 10:42 AM EDT [facility] FUNGAL SMEAR No fungal elements seen 09/07/2024 10:42 AM EDT [facility] FUNGAL SMEAR On Direct Smear 025 10:42 AM EDT [facility] Tissue (Chest Wall, Left) 08/12/2024 10:40 AM EDT 08/12/2024 11:31 AM EDT Comment:Pre-op diagnosis: LEFT AXILLA WOUND Narrative [facility] - 09/07/2024 10:42 AM EDT Contact microbiology if further workup is required for M.abscessus. No fungus isolated after 4 weeks. Jhon Rosado MD MICROBIOLOGY - GENERA L ORDERABLES Final Result Performing Organization Address City/[facility] Co de Phone Number [facility] [address] [place] [address], [place] [phone] * Send Out Test (08/11/2024 3:03 PM EDT) TEST NAME 08/14/2024 7:50 AM EDT GENERIC RESULTING AGENCY SPECIMEN 08/14/2024 7:50 AM EDT GENERIC RESULTING AGENCY SENT TO 08/14/2024 7:50 AM EDT GENERIC RESULTING AGENCY TEST RESULT 08/14/2024 7:50 AM EDT GENERIC RESULTING AGENCY Tissue Left breast structure / Unknown 08/11/2024 3:03 PM EDT 08/11/2024 6:05 PM EDT Herman York DO LAB ORDERABLES Final Result Performing Organization Address 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
--- OUTSIDE RECORDS SUMMARY | 2024-11-02 12:02 | XMS_ITS | Encounter Summary ---
Author Organization [facility] Address [id number] [address] [place] [address] Care Team Providers Care Fire Department Marine Engineer Name Role Phone Amy Collier FEDERAL MEDIATOR-WAFER POLISHING WORKER Primary Care Provider + Encounter Details Date Type Department Care Team (Late st Contact Info) Description 03/10/2023 Orders Only [facility] Internal [facility] - Family Medicine [address] [place] [address] External, Scanning Provider Social History [...] How often do you attend chur or judaism services? More than 4 times [...] Date Recorded Total Score 0 03/07/2022 [facility] of Occupat [...] Recorded Do you need help finding a [facility] career center and/or a training program? 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
--- OUTSIDE RECORDS SUMMARY | 2024-11-02 16:39 | XMS_ITS | CCD ---
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 Randy Meier Primary Care Unava ilable BRITTANI AVALOS Attending Unavailable KRISTAN SANTOS, BRITTANI Referring Unavailable Furlong, Dr. Randy Meier Primary Care Unava ilambar Calle, DO Padilla Primary Care Provider GUY Hanna Attending Provider Randy Calle MD Primary Care Provider EsterDO Randy serrano Primary Care Provider MD Quincy Colbert Attending Provider MD Aarti Hope Referring Provider DO Randy Calle Primary Care Provider MD Quincy Colbert Attending Provider MD Aarti Hope Referring Provider [phone] Jacques RICHTER-Richie MATA Primary Care Provider SHANON TYLER Attending Unavailable RANDY CALLE Primary Care Unavailab le Randy Calle DO Primary Care Provider Qunicy Colbert MD Attending Provider Aarti Hope MD Referring Provider [phone] Jay DO, Evan Attending Provider [phone] Jacques RESTAURANT ASSISTANT MANAGER-PLATE CONDITIONER, [facility] Primary Care Provider Rusty Horton Attending Unavailable Uilsses GONSALEZ Attending Unavailable Sandrita WILLETT Attending Unavailable Haenoc, Astrit H Attending Unavailable Jose, Astrit H Attending Unavailable Jacques RESTAURANT ASSISTANT MANAGER-PLATE CONDITIONER, Richie William Primary Care Provider Randy Calle MD Primary Care Provider [phone] Jaypepe GALLEGOS Evan Attending Provider [phone] Randy Calle DO Primary Care Provider Shereen Smallwood PA-C Attending Provider Shereen Smallwood PA-C Referring Provider Aarti Hope MD Attending Provider NASREEN LI Attending Unavailable JAYSILVIOY Attending Unavailable GEORGIANA JUSTICE Attending Unavailable YVES COFFEY Attending Unavailable YVES COFFEY Attending Unavailable EVAN THOMPSON Attending Unavailable YVES COFFEY Attending Unavailable SILVIO THOMPSONY Attending Unavailable SILVIO THOMPSONY Attending Unavailable Gino Flower APRN Unavailable Aarti Hope MD Unavailable [phone] Mar MATA, Kaye R Primary Care Provider [phone] Shereen Smallwood PA-C Unavailable Saman Joe RN Unavailable Jacques TONGSMAN, Richie Ernst Primary Care Provider JOSHS, KAYE R Primary Care Unavailable MCCAIN, JOSUE Referring Unavailable SAM MELO Attending Unavailable JOSHS, KAYE R Primary Care Unavailable MCCAIN, JOSUE Referring Unavailable JOSHS, KAYE R Primary Care Unavailable EV CORTEZ Referring Unavailable ALESSANDRA SYED Attending Unavailable RICHIE HANNA Primary Care Unavailable MCCAIN, JOSUE Referring Unavailable MCCAINTRAMN Attending Unavailable MCCAIN, JOSUE Admitting Unavailable JACQUES, RICHIE KRISTI Primary Care Unavailable MCCAIN, JOSUE Referring Unavailable MCCAIN, JOSUE Attending Unavailable MCCAIN, JOSUE Admitting Unavailable JOSHS, KAYE R Primary Care Unavailable EGNO PIERCE Referring Unavailable GENO PIERCE Attending Unavailable JACQUES, RICHIE KRISTI Primary Care Unavailable MCCAIN, JOSUE Referring Unavailable JACQUES, RICHIE KRISTI Primary Care Unavailable MCCAIN, JOSUE Referring Unavailable MCCAIN, JOSUE Attending Unavailable MCCAIN, JOSUE Admitting Unavailable JACQUES, RICHIE KRISTI Primary Care Unavailable MCCAIN, JOSUE Referring Unavailable MCCAIN, JOSUE Attending Unavailable MCCAIN, JOSUE Admitting Unavailable JACQUES, RICHIE KRISTI Primary Care Unavailable MCCAIN, JOSUE Referring Unavailable JOSHSKAYE R Primary Care Unavailable MARISELA CISNEROS Attending Unavailable JACQUES, RICHIE KRISTI Primary Care Unavailable EV CORTEZ Attending Unavailable PK BOSCH Referring Unavailable BURKITT, GENNA Admitting Unavailable [facility] Primary Care Unavailable MCCAIN, JOSUE Referring Unavailable JACQUES, [facility] Primary Care Unavailable MCCAIN, JOSUE Referring Unavailable JACQUES, [facility] Primary Care Unavailable MCCAIN, JOSUE Referring Unavailable JOSHS, KAYE R Primary Care Unavailable MCCAIN, JOSUE Referring Unavailable SAM MELO Attending Unavailable JOSHS, KAYE R Primary Care Unavailable KRYSTIN BARRAGAN Attending Unava ilable JOSHS, KAYE R Primary Care Unavailable AARTI HOPE Referring Unavailable BOBBY CHRISTY Attending Unavailable JACQUES, RICHIE L Referring Unavailable JACQUES, RICHIE L Primary Care Unavailable JACQUES, RICHIE L Referring Unavailable JACQUES, RICHIE L Primary Care Unavailable JACQUES, RICHIE L Attending Unavailable JACQUES, RICHIE L Referring Unavailable JACQUES, RICHIE L Primary Care Unavailable DHRUV WHITE Attending Unavailable JACQUES, RICHIE L Referring Unavailable JACQUES, RICHIE L Primary Care Unavailable JACQUES, RICHIE L Referring Unavailable JACQUES, RICHIE L Primary Care Unavailable Randy Calle DO Primary Care Provider Shereen Smallwood PA-C Attending Provider Quincy Colbert MD Attending Provider MARISELA CUEVAS Attending Unavailable JACQUES, RICHIE [...] Unavailable JACQUES, RICHIE L Primary Care Unavailable SHEREEN SMALLWOOD Attending Unavailable JACQUES, RICHIE L Referring Unavailable JACQUES, RICHIE L Primary Care Unavailable JACQUES, RICHIE L Referring Unavailable JACQUES, RICHIE L Primary Care Unavailable MARISELA CUEVAS Attending Unavailable TRISH LOMBARDO Attending Unavailable JACQUES, RICHIE L Referring Unavailable [...] JACQUES, RICHIE L Primary Care Unavailable SELINSHEREEN Attending Unavailable JACQUES, RICHIE L Referring Unavailable JACQUES, RICHIE L Primary Care Unavailable SELINSHEREEN Attending Unavailable JACQUES, RICHIE L Referring Unavailable JACQUES, RICHIE L Primary Care Unavailable SELINSHEREEN Attending Unavailable JACQUES, RICHIE L Referring Unavailable [...] Unavailable JACQUES, RICHIE L Primary Care Unavailable SelinShereen torres Admitting Unavailable SelinShereen torres Attending Unavailable Shereen Smallwood Referring Unavailable Furlong, Randy Primary Care Unavailable Jayy, Aarti Referring Unavailable Furlong, Randy Primary Care Unavailable Sayra, Norleena R Admitting Unavailable Sayra, Norleena R Attending Unavailable SelinShereen pena Admitting Unavailable SelinShereen Attending Unavailable Furlong, Randy Primary Care Unavailable Jay, Evan Admitting Unavailable Jay, Evan Attending Unavailable Jayy, Aarti Admitting Unavailable Jayy, Aarti Attending Unavailable Furlong, Randy Primary Care Unavailable JACQUES, RICHIE L Primary Care Unavailable MARISELA CUEVAS A Referring Unavailable JACQUES, RICHIE L Primary Care Unavailable CARLENE NOGUERA Consulting Unavailable JHON GROSS Admitting Unavail able SUGJHON Jaramillo Attending Unavail able JHON GROSS Referring Unavail able STANLEY MCDERMOTT Attending Unavailable JACQUES, [facility] Primary Care Unavailable NIMO MEZA Admitting Unavailab KAYLEIGH Winston Attending Unavailabl e JACQUES, [facility] Primary Care Unavailable MANSOOR, CARLENE U Consulting Unavailable EPIFANIO HENRY Consulting Unavailable SHANON JOE Consulting Unavailable JACQUES, [facility] Primary Care Unavailable EPIFANIO HENRY Referring Unavailable EPIFANIO HENRY Attending Unavailable JACQUES, [facility] Primary Care Unavailable LILIANE VALLE Referring Unavailable JACQUES, [facility] Primary Care Unavailable JHON GROSS Admitting Unavail able JHON GROSS Attending Unavail able ALBA CORREA Attending Unavailable JACQUES, [facility] Primary Care Unavailable JACQUES, [facility] Referring Unavailable JACQUES, [facility] Primary Care Unavailable JACQUES, [facility] Primary Care Unavailable JHON GROSS Attending Unavail able JHON GROSS Admitting Unavail able JACQUES, [facility] Primary Care Unavailable RENO KENYON Attending Unavailable RAYMOND SEPULVEDA Attending Unavailable JACQUES, [facility] Referring Unavailable JACQUES, [facility] Primary Care Unavailable MANSOOR, CARLENE U Consulting Unavailable JACQUES, [facility] Primary Care Unavailable JHON GROSS Admitting Unavail able JHON GROSS Attending Unavail able JAYY, AARTI Consulting Unavailable JACQUES, RICHIE L Referring Unavailable JACQUES, [facility] Primary Care Unavailable RAYMOND SEPULVEDA Attending Unavailable JACQUES, [facility] Referring Unavailable JACQUES, [facility] Primary Care Unavailable MANSOOR, CARLENE U Consulting Unavailable ROYER RAE Attending Unavailable SURESH RODRÍGUEZ Admitting Unavailable JACQUES, [facility] Primary Care Unavailable JHON GROSS Consulting Unavail able JAYY, AARTI Consulting Unavailable JACQUES, [facility] Primary Care Unavailable GINO FLOWER Referring Unavailable JACQUES, [facility] Primary Care Unavailable LEONARDO IBARRA Attending Unavailable RAYMOND SEPULVEDA Attending Unavailable JACQUES, RICHIE L Referring Unavailable JACQUES, RICHIE L Primary Care Unavailable JACQUES, RICHIE L Primary Care Unavailable CHAMP ORTIZ Attending Unavailable CHAMP ORTIZ Referring Unavailable GEORGIANA STEIN Admitting Unavailable JACQUES, RICHIE L Primary Care Unavailable CHAMP ORTIZ Attending Unavailable CHAMP ORTIZ Referring Unavailable Valdemar Luz Admitting Unavailable JACQUES, RICHIE L Referring Unavailable JACQUES, RICHIE L Primary Care Unavailable RAYMOND SEPULVEDA Attending Unavailable JACQUES, RICHIE L Referring Unavailable JACQUES, RICHIE L Primary Care Unavailable CARLENE NOGUERA U Consulting Unavailable JACQUES, RICHIE L Primary Care Unavailable SUGG, JHON ANETTE Admitting Unavail able SUGG, JHON CHEEMA Attending Unavail able AARTI HOPE Consulting Unavailable JACQUES, RICHIE L Referring Unavailable JACQUES, RICHIE L Primary Care Unavailable JACQUES, RICHIE L Primary Care Unavailable SUGG, JHON ANETTE Admitting Unavail able SUGGJHON Attending Unavail able JACQUES, RICHIE L Referring Unavailable JACQUES, RICHIE L Primary Care Unavailable JACQUES, RICHIE L Primary Care Unavailable SUGG, JHON ANETTE Admitting Unavail able SUGGJHON Attending Unavail able RAYMOND SEPULVEDA Attending Unavailable JACQUES, RICHIE L Referring Unavailable JACQUES, RICHIE L Primary Care Unavailable RESEARCH, GENERIC Attending Unavailable JOSSY MOODY Attending Unavailable RESEARCH, GENERIC Attending Unavailable RESEARCH, GENERIC Attending Unavailable RESEARCH, GENERIC Attending Unavailable RESEARCH, GENERIC Attending Unavailable HARIS LAY Admitting Unavailable GRACE VIVAR Attending Unavailable HERMAN LUI Attending Unavailable HERMAN LUI Attending Unavailable HERMAN LUI Attending Unavailable SANDRITA AGOSTO Attending Unavailable KAVON VEGAS Referring Unavailable SCOTT RODRIGUEZ Attending Unavailable ADA JACQUES Referring Unavailabl e HERMAN LUI Attending Unavailable HERMAN LUI Attending Unavailable HERMAN LUI Attending Unavailable HERMAN LUI Attending Unavailable JUHI ATWOOD Attending Unavailable RESEARCH, GENERIC Attending Unavailable RESEARCH, GENERIC Attending Unavailable RESEARCH, GENERIC Attending Unavailable HERMAN LUI Attending Unavailable Allergies Allergy Classification Reported Allergen(s) Allergy Type Date of Onset Reaction(s) Facility (20 sources) Meperidine; Translations: [meperidine] Drug Allergy 9 anaphylaxis, Eruption of skin (disorder), Swelling, Unknown, Facial Swelling, Other: See Comments, Rash [facility] (1 source) Adhesive bandage; Translations: [Adhesive Bandage] Propensity to adverse reactions (disorder) [facility] Repository (4 sources) Meperidine; Translations: [Demerol] Drug Allergy 3 [facility] Repository (20 sources) Adhesive agent; Translations: [ADHESIVE] Drug allergy (disorder) 5 Rash [facility] Repository (20 sources) Meperidine Drug Allergy 3 Unknown [facility] (20 sources) Wound Dressing Adhesive Drug Allergy 3 Unknown, Rash, Itching [facility] (20 sources) DAPTOmycin; Translations: [daptomycin] Drug Allergy 4 Flushing (disorder), Flushing, Other: See Comments [facility] (20 sources) Doxycycline; Translations: [doxycycline] Drug Allergy 4 Rash [facility] (20 sources) tigecycline; Translations: [tigecycline] Drug Allergy 4 Vomitus (substance), Rash, Vomiting [facility] (20 sources) Daptomycin Propensity to adverse reactions 4 Other [facility] (20 sources) Tetracycline; Translations: [tetracycline] Drug Allergy 4 Rash [facility] (20 sources) tigecycline Drug Allergy 4 Hives [facility] (20 sources) Vancomycin; Translations: [VANCOMYCIN] Drug Allergy 4 Other (See Comments), Other: See Comments [facility] (20 sources) Adhesive agent Propensity to adverse reactions to drug 2 Rash [facility] (20 sources) Adhesive Tape-Silicones; Translations: [ADHESIVE TAPE-SILICONES] Propensity to adverse reactions to drug 4 Itching [facility] (3 sources) ceftaroline Drug Allergy 5 [facility] (20 sources) ceftaroline fosamil; Translations: [CEFTAROLINE FOSAMIL] Drug Allergy 5 Fever, Other: See Comments [facility] Work Phone: (3 sources) Adhesive agent Propensity to adverse reactions to drug 2 Rash [facility] (1 source) DAPTOmycin Drug Allergy 5 [facility] Repository (1 source) Doxycycline Drug Allergy 5 [facility] Repository (1 source) Meperidine Drug Allergy 5 [facility] Repository (1 source) tigecycline Drug Allergy 5 [facility] Repository (1 source) Vancomycin Drug Allergy 4 [facility] Repository Medications Current Medications Medication Drug Class(es) Dates Sig (Normalized) Sig (Original) abemaciclib 150 mg oral tablet (20 sources) Start: 04-18-2024 End: 05-12-2024 take 1 tablet by mouth twice daily acetaminophen 325 mg oral tablet (20 sources) Start: 07-29-2024 take 2 tablets by mouth every six hours acetaminophen (TYLENOL) 325 mg tablet Take 2 tablets (650 mg total) by mouth every 6 (six) hours. 30 tablet 07/29/2024 Active Start: 12-02-2023 End: 12-09-2023 take [...] Opioid Agonist Start: 05-13-2023 End: 06-01-2024 HYDROcodone-acetaminophen ([place]) 5-325 MG tablet TAKE ONE TABLET BY MOUTH EVERY 6 HOURS NEEDED FOR PAIN SCALE 4 TO 6 05/13/2023 06/01/2024 Discontinued acetic acid 2.5 mg/ml irrigation solution (16 sources) Start: 08-18-2024 acetic acid 0.25 % [...] Start: 07-14-2024 amikacin (AMIKIN) 500 mg/2 mL injection Infuse 3.6 mL (900 mg total) into a venous catheter 3 (three) times a week. 07/14/2024 Active Start: 07-14-2024 amikacin (AMIK IN) 500 mg/2 mL soln 07/14/2024 Active Start: 05-22-2024 amikacin See I [...] tablet (20 sources) Aromatase Inhibitor Start: 01-08-2024 take 1 tablet by mouth once daily apixaban 5 mg oral tablet (20 sources) Factor Xa Inhibitor Start: 09-18-2023 End: 12-09-2023 take 1 tablet by mouth twice daily benzonatate 100 mg oral capsule (1 source) [...] (20 sources) Nucleoside Metabolic Inhibitor Start: 08-03-2024 take 3 tablets by mouth twice daily capecitabine (XELODA) 500 mg chemo tablet Take 3 tablets by mouth 2 (two) times a day 08/03/2024 Active Start: 10-13-2023 End: 03-18-2024 capecitabine (XELODA) 500 mg chemo tablet Take by mouth after surgery 10/13/2023 03/18/2024 Discontinued (Therapy completed) carvedilol 12.5 mg oral tablet (20 sources) alpha-Adrenergic Jay, beta-Adrenergic Jay Start: 07-14-2024 take 1 tablet by mouth in the morning, then take 1 tablet by mouth at bedtime carvediloL (COREG) 12.5 mg tablet Take 1 tablet (12.5 mg total) by mouth in the morning and 1 tablet (12.5 mg total) before bedtime. 180 tablet 1 07/14/2024 Active Start: 05-01-2022 End: 01-25-2024 take [...] N) 500 mg injection Current inpatient at [facility] receiving iv antibiotics 03/29/2024 07/15/2024 Discontinued (Duplicate [...] 12/03/23 at 1200, Indication: Nontuberculous mycobacterial infection (makeup artist drug) CLOFAZIMINE, BULK, MISC (20 sources) CLOFAZIMINE, [...] take 1 capsule by mouth at bedti mt CLOFAZIMINE, BULK, MISC Take 50 mg by mouth in the morning and at bedtime. Capsule for mycobacterial infection Suspended take 1 capsule by mouth at bedti me CLOFAZIMINE, BULK, MISC Take 50 mg by [...] dose, On Thu09/07/24 at 1130 Start: 09-01-2024 take 0.5 tablet by m outh at breakfast dexAMETHasone (DECADRON) 4 mg tablet Take 0.5 tablets (2 mg total) by mouth. with breakfast 09/01/2024 Active Start: 09-01-2024 End: 10-01-2024 take 1 [...] ml enoxaparin sodium 100 mg/ml prefilled syringe (10 sources) Low Molecular Weight Heparin Start: 10-06-2024 enoxaparin (LOVENOX) 40 mg/0.4 mL syringe 10/06/2024 Active Start: 10-19-2023 End: 11-30-2023 inject 0.4 mL by subcutaneous injection in the morning enoxaparin (LOVENOX) 40 mg/0.4 mL syringe Inject 0.4 mL (40 mg total) under the skin in the morning. 10/19/2023 11/30/2023 Discontinued (Stop Taking at Discharge) ertapenem 1000 mg injection (6 sources) Penem Antibacterial Start: 02-11-2024 take 1 g intravenously twice daily famotidine 20 mg oral tablet (20 sources) Histamine-2 Receptor Antagonist Start: 09-08-2024 End: 10-16-2024 take 1 tablet by mouth in the morning famotidine (PEPCID) 20 mg tablet Take 1 tablet (20 mg total) by mouth in the morning. 09/08/2024 Active Start: 09-01-2024 End: 10-01-2024 take 1 [...] Start: 04-06-2023 End: 03-18-2024 Flonase 0.05 mg/inh [place] 1 spray(s), Nasal, BID, Refill(s) 0 Start Date: 04/06/23 Status: Ordered End: 06-01-2024 fluticasone (Flonase) 50 MCG /ACT nasal spray 1 (one) time each day at the same time 06/01/2024 Discontinued take 1 spray(s) nasa l route once daily fluticasone propionate (FLONASE) 50 mcg/actuation nasal spray 1 spray in each nostril Nasally Once a day Active folic acid 1 mg oral tablet (20 sources) Start: 09-20-2024 folic acid (FO LVITE) 1 mg tablet Take 1 tablet (1,000 mcg total) by mouth. 09/20/2024 Active Start: 05-12-2024 End: 06-11-2024 folic acid 1 mg tablet Take 1 mg by mouth. 05/22/2024 Active gabapentin 300 mg oral capsule (20 sources) Anti-epileptic Agent Start: 04-26-2024 take 1 capsule by mouth twice daily Start: 05-02-2023 End: 12-09-2023 take 1 capsule [...] tablet (20 sources) Antihistamine Start: 05-12-2024 End: 09-23-2024 hydrOXYzine HCl (ATARAX) 25 mg tablet Take [...] take 1 tablet by mouth once daily Start: 12-05-2023 End: 12-09-2023 take 400 mg by mouth twice daily 400 mg, oral, 2 times daily, First dose on 12/05/23 at 2100 mecobalamin (6 sources) Start: 02-11-2024 Start: 02-11-2024 mecobalamin (v itamin B12) Active PO February 11, 2024 1:00am Start: 02-11-2024 mecobalamin (v itamin B12) Active PO February 11, 2024 12:00am metoprolol tartrate 100 mg oral tablet (20 sources) beta-Adrenergic Jay Start: 05-22-2024 take 1 tablet by mouth once daily metoprolol tartrate 100 mg Tab 100 mg = 1 tab(s), Oral, Daily, Refills(s) 0 Start Date: 05/22/24 Status: Ordered Repeat number: 1 Start: 02-11-2024 Start: 12-05-2023 End: 12-09-2023 100 mg, oral, [...] at bedtime as needed. 06/15/2024 Active nystatin [id number] unt/ml oral suspension (4 sources) Polyene Antifungal Start: 09-21-2024 nystatin (MYCOSTATIN) 100,000 unit/mL suspension TAKE 5 ML SWISH AND SPIT FOR THRUSH, FOUR TIMES A DAY 09/21/2024 Active omadacycline 150 mg oral tablet (20 sources) take 2 tablets by mouth in the morning omadacycline 150 mg tablet Take 300 mg by mouth in the morning. Active oxyCODONE hydrochloride 10 mg oral tablet [...] Start: 04-21-2023 prochlorperazine (COMPAZINE) 10 mg tablet 04/25/2024 Active pyridoxine (6 sources) Start: 02-11-2024 Start: 02-11-2024 pyridoxine (vi tamin B6) Active PO February 11, 2024 1:00am Start: 02-11-2024 pyridoxine (vi tamin B6) Active PO February 11, 2024 12:00am sertraline 50 mg oral tablet (8 sources) Serotonin Reuptake Inhibitor Start: 09-23-2024 take [...] 28 days. 12 tablet 09/02/2024 09/30/2024 Active tedizolid phosphate 200 mg oral tablet (16 sources) Oxazolidinone Antibacterial Start: 02-11-2024 End: 07-14-2024 vitamin B12 (20 sources) Vitamin B12 Start: 05-22-2024 Vitamin B12 Oral, Daily, Refills(s) 0 Start Date: 05/22/24 Status: Ordered Repeat number: 1 Start: 12-06-2023 End: 12-09-2023 take 1 tablet [...] Status: Ordered Repeat number: 1 Start: 03-16-2024 take 1 tablet by haydee th in the morning pyridoxine, vitamin B6, (B-6) 50 mg tablet Take 1 tablet (50 mg total) by mouth in the morning. 03/28/2024 Active Completed/Discontinued Medications Medication Drug Class(es) [...] week. 750 mg- hasn't started yet Active nhgmyavu-zzwzxralc-yqghzuq H MB (JOSE) 7-7-1.5 gram powder in packet (18 sources) Start: 05-12-2024 End: 07-14-2024 vvbcqkib-yqqyafdiz-ujbgqvn H MB (JOSE) 7-7-1.5 gram powder in [...] 08/10/2024 Active cefuroxime 250 mg oral tablet (10 sources) Cephalosporin Antibacterial Start: 03-17-2018 End: 02-11-2024 Cefuroxime Axetil 250 mg Tablet Discontinued March 17, 2018 1:00am February 11, 2024 3:30pm Start: 03-17-2018 End: 02-11-2024 Cefuroxime Axetil 250 mg Tab let Discontinued TABLET March 17, 2018 1:00am February 11, 2024 3:30pm Start: 03-17-2018 Cefuroxime Axe til Active TABLET March 17, 2018 1:00am citalopram 10 mg oral tablet (10 sources) Serotonin Reuptake Inhibitor Start: 03-17-2018 End: 02-11-2024 Citalopram 10 mg Tablet Discontinued March 17, 2018 1:00am February 11, 2024 3:30pm Start: 03-17-2018 End: 02-11-2024 Citalopram 10 mg Tablet Disc ontinued TABLET March 17, 2018 1:00am February 11, [...] use. docusate sodium 50 mg / sennosides, skilled nursing 8.6 mg oral tablet (1 source) Start: [...] is REQUIRED to use this drug at [facility], [facility] and [facility] per [facility]-approved policy # MM 1.15: Yes iron [...] W/Lidocaine 240 Ml Bottle 240 mL bottle (6 sources) Start: 02-03-2024 End: 04-26-2024 take 10 [...] Active mometasone furoate 1 mg/ml topical cream (7 sources) Corticosteroid Start: 12-29-2023 End: 04-26-2024 Mometasone [...] Status: Ordered Repeat number: 1 Start: 02-11-2024 Start: 12-06-2023 End: 12-09-2023 20 mEq, oral, Daily, First d ose on 12/06/23 at 0900, Hold for potassium more than 4.5 Do not crush or chew. Start: 12-03-2023 End: 12-09-2023 potassium chloride (KLOR-CON M 20) CR tablet 20-60 mEq Start: 12-03-2023 End: 12-03-2023 20-40 mEq, oral, As needed, potassium supplementation, Starting on [facility] 12/03/23 at 0602, Progress to oral potassium [...] Active Start: 03-22-2023 take 1 tablet by [facility] twice daily at bedtime Start: 08-18-2022 take 1 tablet by [facility] once daily Klor-Con M20 20 MEQ Oral Tablet Extended Release Take 1 tablet daily Quantity: 90 Refills: 3 Ordered: 18-Aug-2022 Shanon Tyler MD Start : 18-Aug-2022 Active take 2 tablets by [facility] twice daily potassium chloride (K-TAB) 10 mEq tablet TAKE TWO TABLETS BY MOUTH TWICE A DAY Active End: 10-16-2023 potassium chloride (K-TAB,KL OR-CON) 10 MEQ CR tablet Take 1 tablet (10 mEq total) by mouth in the morning. 10/16/2023 Discontinued (Dose adjustment) silver sulfADIAZINE 10 mg/ml topical cream (6 sources) Sulfonamide Antibacterial Start: 02-10-2024 End: 04-26-2024 [...] Serotonin Reuptake Inhibitor Start: 03-17-2018 End: 02-11-2024 Trazodone 50 mg Tablet Discontinued March 17, 2018 1:00am February 11, 2024 3:31pm Start: 03-17-2018 End: 06-01-2024 Trazodone 50 mg Tablet Disco ntinued TABLET March 17, 2018 1:00am February 11, [...] pancytopenia; Translations: [Other pancytopenia] Onset: 05-02-2024 Chronic Essential hypertension (20 sources) Hypertensive disorder; Translations: [...] knee] Onset: 11-27-2021 11-27-2021 Chronic Other aftercare (19 sources) Postoperative visit; Translations: [Encounter for other specified surgical aftercare] 03-30-2024 Episodic Other aftercare (2 sources) Surgical follow-up; Translations: [Encounter for follow-up examination after completed treatment for conditions other than malignant neoplasm] 04-21-2024 Episodic Other aftercare (1 source) Encounter for change or removal of surgical wound dressing; Translations: [Encounter for change or removal of surgical wound dressing] Onset: 08-24-2024 Episodic Other circulatory disease (1 source) H/O: [...] unspecified] Onset: 10-14-2022 Episodic Residual codes; unclassified (3 sources) Device [...] postprocedural states] 07-18-2024 Episodic Residual codes; unclassified (17 sources) Other [...] laterality (HCC)] Onset: 08-27-2024 Chronic Secondary malignancies (2 sources) Secondary malignant neoplasm of brain; Translations: [...] Problem Onset: 07-13-2024 07-13-2024 Unclassified (1 source) New Patient Evaluation Onset: 07-19-2024 Unclassified (1 source) July 29 debrievement of left breast tissue Onset: 08-10-2024 Unclassified (1 source) Post-op Onset: 12-02-2023 Unclassified (1 source) New Patient Onset: 04-13-2024 Unclassified (1 source) Post-op Problem Onset: 12-02-2023 Unclassified (1 source) breast implant infection Onset: 11-26-2023 Past or Other Problems Problem Classification Problem [...] deficiency anemia, unspecified] Onset: 03-07-2022 03-07-2022 Episodic E Codes: Adverse effects of medical [...] sequela] Onset: 05-05-2024 03-30-2024 Episodic Other aftercare (3 sources) Encounter for therapeutic drug level monitoring; Translations: [Encounter for medication monitoring] Onset: 03-16-2024 Episodic Other aftercare (2 sources) Encounter for other specified surgical aftercare; Translations: [Encounter for other specified surgical aftercare] Onset: 11-04-2023 Episodic Other aftercare (1 source) Other 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 supplier (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 therapy; Translations: [Other wool supplier (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 therapy] Onset: 06-03-2024 Episodic Other aftercare (1 source) Encounter for follow-up examination after completed treatment for conditions other than malignant neoplasm; Translations: [Encounter for follow-up examination after completed treatment for conditions other than malignant neoplasm] Onset: 07-27-2024 Episodic Other gastrointestinal disorders (20 sources) Pelvic [...] Onset: 05-26-2023 05-26-2023 Episodic Residual codes; unclassified (20 sources) History of breast reconstruction; Translations: [Other specified postprocedural states] Onset: 10-28-2023 10-28-2023 Episodic Residual codes; unclassified (20 sources) History of reconstruction of left breast; Translations: [Other specified postprocedural states] Onset: 05-02-2024 05-02-2024 Episodic Residual codes; unclassified (7 sources) Other specified postprocedural states; Translations: [Post-operative state] Onset: 10-28-2023 Episodic Residual codes; unclassified (5 sources) Estrogen receptor positive status [ER+]; Translations: [Estrogen receptor positive status (ER+)] Onset: 12-04-2023 Episodic Residual codes; unclassified (1 source) Pain, unspecified; Translations: [Pain, unspecified] Onset: 06-12-2024 Episodic Residual codes; unclassified (2 sources) Acquired [...] Name Value Interpretation Reference Range Facility 36on 11-01-2024 36 Patient notified. [facility] 36 Ok if she is feeling better lets see if she can take the Thursday dose. She should have had a level drawn on thursday [facility] 36 Telephone Encounter Reason for Call: Amikacin Patient stated that she did not take Amikacin over thew weekend due to having ringing in her ears, in addition to stomach issues. Patient Name: Ike Flannery Dustin Molina, [facility] Orders Onlyon 10-19-2024 Orders Only [id number] Ike Flannery 1970 F Date Provider Department Center 10/19/2024 [id number], HISTORICAL [facility] INF Anthony Heal Family History Adopted: Yes Problem Relation Age of Onset Heart attack Father Family Status - Relation Status Age at Father [facility] Follow-Upon 10-18-2024 Follow-Up [id number] Ike Flannery 1970 F Date Provider Department Center 10/18/2024 Shubham-HERMAN LUI [facility] INF Anthony Heal Family History Adopted: Yes Problem Relation Age of Onset Heart attack Father Family Status - Relation Status Age at Father Level of Service:78906 NC OFFICE/OUTPATIENT ESTABLISHED LOW MDM 20 MIN Reason for Visit and Comments: Follow-up [032460] [facility] Orders Onlyon 10-18-2024 Orders Only [id number] Ike Flannery 1970 F Date Provider Department Center 10/18/2024 [id number], HISTORICAL [facility] Anthony Heal Family History Adopted: Yes Problem Relation Age of Onset Heart attack Father Family Status - Relation Status Age at Father Normal [facility] Abstracton 10-17-2024 Abstract [id number] Ike Flannery 1970 F Date Provider Department Center 10/17/2024 [id number], HERMAN [facility] IN[facility] Anthony Heal Family History Adopted: Yes Problem Relation Age of Onset Heart attack Father Family Status - Relation Status Age at Father Normal [facility] Orders Onlyon 10-17-2024 Orders Only [id number] Ike Flannery 1970 Date Provider Department Center 10/17/2024 [id number], HISTORICAL [facility] Anthony Heal Family History Adopted: Yes Problem Relation Age of Onset Heart attack Father Family Status - Relation Status Age at Father Normal [facility] ANAEROBIC CULTUREon 10-13-19 ANAEROBIC CULTURE CULTURE RESULTS NO GROWTH 5 DAYS Normal [facility] Comment on above: Order Comment: Pre-o p diagnosis:BREAST WOUND LEFT Performed By: #### A NAC ####[facility] ([facility])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 [address] VIR TISSUE CULTUREon 10-12-2024 TISSUE CULTURE CULTURE RESULTS NO GROWTH 3 DAYS GRAM STAIN 0 White Blood Cells/LPF 0 Squamous Epithelial Cells/LPF No organisms seen Normal [facility] Comment on above: Order Comment: Pre-o p diagnosis:BREAST WOUND LEFT Performed By: #### T ISC ####[facility] ([facility])[address] [address] VIR CNOPon 10-07-2024 CNOP Operative Note (Enc) (NSCAMN) Encounter Status:Closed by JOSUE MCCAIN on 10/07/24 [facility] CNOVon 10-07-2024 CNOV Office Visit (NOGKCA ) IKE FLANNERY ([id number]) 1970 F Date Time Provider Department 10/07/24 9:00 AM PLACEMENT VIVIENNE ELAMYumi During your visit today, we recorded the following information about you: Pulse Blood pressure 76/minute 122/81 Alexander Browning RN 10/07/2024 11:03 AM Signed October 07, 2024 [...] abuse: no Allergies reviewed with patient, yes. [id number] Mask completed. To imaging for CT Scan and MRI. Ike Flannery returned to department for treatment # 1 of 1. Is patient on immunotherapy? No. Patient's Age: 53 Menstruation Status: Hysterectomy 921 Decadron 4 mg po and xanax 0.5 po given prior to Gamma Knife SRS per order of Dr. Adán MD. 0994 Patient assisted to treatment room. Gamma Knife SRS begun. 1014 Gamma Knife Stereotactic Radiosurgery Completed. 1020 Discharge instructions given to patient. Instructions reviewed by this nurse and patient verbalized an understanding. Pt then discharged. OC Hinds Colleen, RN 10/07/2024 9:16 AM Signed [facility] Knife [place] Discharge Instructions As with any surgery there [...] a physician or hospital other than the [facility] with any problem related to the Gamma Knife procedure, please call your physician, Dr. Sherly Mccain at [phone]. After your treatment, you may experience a [...] call your physician, Dr. Sherly Mccain at [phone] Thursday through Thursday 8:00 am to 5:00 pm. In the evening or on weekends, call [phone] or toll-free [phone] and ask the carton filling machine operator to page your neurosurgeon's resident natural history collections curator. Referring Provider: JOSUE MCCAIN [[id number]] Allergies As of Date: 10/07/2024 Noted Allergy [...] Rash Date Reviewed: 10/07/2024 Reviewed by: Corry Beal, RT(R) - Tacho (more content not included)... Normal [facility] CT BRAIN STEREOLOCAL WO IVCO Non [...] this is for gk planning purposes. - [id number] - - - - TECHNIQUE: CT head [...] or retention cysts in both maxillary antra. Betting Clerks (topogram) images: No additional findings. IMPRESSION: Examination performed for preprocedural planning purposes. Conventional Machinist: CARLOS Transcribe Date/Time: Oct 07 2024 8:54A Dictated by : MACIE PIZANO DO This examination was interpreted and the report reviewed and electronically signed by: MACIE PIZANO DO on Oct 07 2024 8:56AM EST [id number] Normal [facility] CT Guidance for stereotactic biopsy of Head-- WO contraston 10-07-2024 Radiology Study observation (narrative) [facility] IMPRESSION: Examination performed for preprocedural planning purposes. Conventional Machinist: CARLOS Transcribe Date/Time: Oct 07 2024 8:54A Dictated by : MACIE PIZANO DO This examination was interpreted and the report reviewed and electronically signed by: MACIE PIZANO DO on Oct 07 2024 8:56AM EST DIVISION OF RADIOLOGY * * *Final [...] this is for gk planning purposes. - [id number] - - - - TECHNIQUE: CT head [...] or retention cysts in both maxillary antra. Betting Clerks (topogram) images: No additional findings. DIVISION OF RADIOLOGY Provider, [facility] - 10/07/2024 * * *Final Report* [...] this is for gk planning purposes. - [id number] - - - - TECHNIQUE: CT head [...] or retention cysts in both maxillary antra. Betting Clerks (topogram) images: No additional findings. IMPRESSION IMPRESSION: Examination performed for preprocedural planning purposes. Conventional Machinist: CARLOS Transcribe Date/Time: Oct 07 2024 8:54A Dictated by : MACIE PIZANO DO This examination was interpreted and the report reviewed and electronically signed by: MACIE PIZANO DO on Oct 07 2024 8:56AM EST [facility] CT Guidance for stereotactic biopsy of Head-- WO contrastOrdered By: Ccf Provider on 10-07-2024 [facility] MR Guidance for stereotactic localization of Brain-- W contrast Ashwin 10-07-2024 IMPRESSION: Examination performed for preprocedural planning purposes. Stable small lesion in the left middle frontal gyrus. Slight decrease in size of midline cerebellar vermis lesion and left inferior frontal lesion from 09/07/2024. Conventional Machinist: CARLOS Transcribe Date/Time: Oct 07 2024 8:56A Dictated by : MACIE PIZANO DO This examination was interpreted and the report reviewed and electronically signed by: MACIE PIZANO DO on Oct 07 2024 9:01AM [facility] DIVISION OF RADIOLOGY * * *Final Report* [...] this is for gk planning purposes - [id number] - - - - TECHNIQUE: MRI brain [...] cisterns are clear. DIVISION OF RADIOLOGY Provider, Evie Tapia [facility] - 10/07/2024 * * *Final Report* * [...] this is for gk planning purposes - [id number] - - - - TECHNIQUE: MRI brain [...] and left inferior frontal lesion from 09/07/2024. Conventional Machinist: PSCB Transcribe Date/Time: Oct 07 2024 8:56A Dictated by : MACIE PIZANO DO This examination was interpreted and the report reviewed and electronically signed by: MACIE PIZANO DO on Oct 07 2024 9:01AM EST [facility] Radiology Study observation (narrative) [facility] MR Guidance for stereotactic localization of Brain-- W contrast IVOrdered By: Ccf Provider on 10-07-2024 [facility] MRI BRAIN LOCAL W IVCONon MRI [...] this is for gk planning purposes - [id number] - - - - TECHNIQUE: MRI brain [...] and left inferior frontal lesion from 09/07/2024. Conventional Machinist: PSCWillis Transcribe Date/Time: Oct 07 2024 8:56A Dictated by : MACIE PIZANO DO This examination was interpreted and the report reviewed and electronically signed by: MACIE PIZANO DO on Oct 07 2024 9:01AM EST [id number] Normal [facility] Orders Onlyon 10-06-2024 Orders Only [id number] Ike Flannery 1970 F Date Provider Department Center 10/06/2024 [id number], HISTORICAL [facility] INF Anthony Heal Family History Adopted: Yes Problem Relation Age of Onset Heart attack Father Family Status - Relation Status Age at Father Normal [facility] Orders Onlyon 10-04-2024 Orders Only [id number] Ike Flannery 1970 F Date Provider Department Center 10/04/2024 [id number], HISTORICAL [facility] Anthony Heal Family History Adopted: Yes Problem Relation Age of Onset Heart attack Father Family Status - Relation Status Age at Father Normal [facility] Orders Onlyon 09-27-2024 Orders Only [id number] Ike Flannery 1970 F Date Provider Department Center 09/27/2024 [id number], HISTORICAL [facility] Anthony Heal Family History Adopted: Yes Problem Relation Age of Onset Heart attack Father Family Status - Relation Status Age at Father Normal [facility] CNPNon 09-23-2024 CNPN Telephone ([facility]) ALCONIKE SIDDIQUI ([id number]) 1970 F Date Time Provider Department 09/23/24 FRANCOISE JOHNSTON [facility] During your visit today, we recorded the [...] OCCA - Fully Assessed 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 - Other [3602] Prescriptions as of 09/23/2024 [...] Encounter Status:Closed by FRANCOISE JOHNSTON on 09/23/24 [facility] Delia 09-22-2024 [facility] Telephone ([facility]) IKE FLANNERY ([id number]) 1970 F Date Time Provider Department 09/22/24 JOSUE MCCAIN [facility] During your visit today, we recorded the following information about you: Amador Del Valle 09/22/2024 4:50 PM Signed General Call Caller [...] Encounter Status:Closed by FRANCOISE JOHNSTON on 09/23/24 [facility] 36on 09-20-2024 36 Call to Dania, Pharmacist at [facility] to update that Imipenem 1g Q12 and Amikacin 900mg three times per week should be extended to 03/16/[address] Lui. Patient next follow up appointment is 10/[address] Lui. [facility] Orders Onlyon 09-19-2024 Orders Only [id number] Ike Flannery 1970 F Date Provider Department Center 09/19/2024 [id number], HISTORICAL [facility] INF Anthony Heal Family History Adopted: Yes Problem Relation Age of Onset Heart attack Father Family Status - Relation Status Age at Father [facility] CNOVon 09-16-2024 CNOV Office Visit (PLASMN ) IKE FLANNERY ([id number]) 1970 F Date Time Provider Department 09/16/24 8:40 AM [place] During your visit today, we recorded the following information about you: Temperature Pulse Blood pressure 97.4 degrees 84/minute 136/90 Geno Pierce, RESTAURANT ASSISTANT MANAGER.PLATE CONDITIONER 09/16/2024 2:45 PM Signed Plastic Surgery Note CC: post op HPI: Ike is a 53 year old female who presents today for evaluation of s/p 08/30/2024 Dr. [place] 1. Excisional biopsy right breast skin 2. Explantation of right breast tissue solar power installer intact 3. Debridement of right breast pocket for closure and 20 x 20 cm ARTEMIO drain removed by Plastic Surgey team at [facility] Pt reports she is feeling well. Denies pain. Denies drainage from the incision. Denies fever/chills. Pathology FINAL DIAGNOSIS A. Right breast skin, excision: - Carcinoma involving dermis, see comment. B. Right breast, solar power installer removal: - Grossly unremarkable, collapsed, textured solar power installer (Gross examination only). SS/MLG at 1420 EDT Diagnosis Comment The morphologic features are compatible with breast origin. The lesion measures up to 10 mm and extends to inked specimen margins. ER, NC and HER2 are pending and will be [...] 08/30/24 4:17 PM Gross examination performed at [facility], [address], [place] [address] B. Hardware/Device/Foreig n Body Received fresh labeled as right breast tissue solar power installer is a collapsed textured solar power installer weighing 144.10 g and measuring 15.0 x 14.0 x 2.0 cm with the following inscription ALLOX2 SIENTRA FH 14 . No soft tissue is present. No sections are submitted. The specimen is reviewed with Dr. Kerns. Gross examination only. MLG 08/30/24 1:20 PM Gross examination performed at [facility], [address] [place] [address] Clinical History Pre-op diagnosis: Cancer (HCC) [C80.1] History of reconstruction of both breasts [Z98.890] Performing Lab Diagnostic interpretation performed at: [facility], [address] [place] [address], Desk [address] [address] CLIA# [id number] Weekday Babysitter: Derick Meadows MD Disclaimer PAST MEDICAL HISTORY [...] Take 300 (more content not included)... Normal [facility] CNOVSPon 09-16-2024 OVS Visit (SP) Office (HEMCA4) IKE FLANNERY ([id number]) 1970 F Date Time Provider Department 09/16/24 7:30 AM ALESSANDRA SYED During your visit today, we recorded the [...] directive in place? No, Patient referred to [facility] Electronically Signed By: SHARAD Ray Marie, APRN.PLATE CONDITIONER 09/16/2024 8:33 AM Signed Recording using [employer] software for draft documentation of the visit was discussed with the patient/authorized telephone service representative; all questions welcomed and answered. Patient/authorized telephone service representative agreed to proceed ATTENDING PHYSICIAN: Dr. Bobby Christy IDENTIFICATION: Ike Flannery is a 53 year old woman with an ER positive (41-50%), NC negative, Qnc9lkb negative (IHC 0+) metastatic breast cancer with [...] mastectomy with right axillary dissection and tissue solar power installer placement Radiation Anastrozole (January 2024 - May 2024) May 2024 (metastatic diagnosis) Capecitabine (July 2024 - present) Gamma knife (September 07, 2024) INTERVAL HISTORY: Pt presents today by herself for evaluation prior to continuation of therapy for metastatic breast cancer. Metastatic Cancer: - Follows with oncologist in [place], usually monthly, but more frequently recently. - Started Xeloda on September 08; currently on treatment week, with off week starting on the . - Reports fatigue and decreased alertness after taking Xeloda; has not taken today's dose yet. - No nausea or diarrhea reported. - Noticed worsening neuropathy and fish drier fingers; no redness or peeling in palms. - Prefers Xeloda over other treatments due to concerns about hair loss. - Underwent Gamma Knife surgery; reports clearer thoughts and improved speech within 48 hours post-surgery. - Weekly blood work for oncology and infectious disease monitoring. - Last PET scan in May at [facility] - No current pain reported. [...] Lymph 1.00 - 4.00 k/uL 1.22 Abs Hitchcock <0.87 k/uL 0.38 Abs Eosin <0.46 k/uL <0.03 Abs Baso <0.11 k/uL <0.03 NRBC /100 WBC 0.0 IMPRESSION: woman with an ER positive (41-50%), NC negative, Cpm4fnh negative (IHC 0+) metastatic breast cancer with primary involvement of the liver and brain Current therapy: capecitabine Pt is without any signs or symptoms of recurrent or metastatic disease at the time of today's exam PLAN: After evaluation an (more content not included)... Normal [facility] Orders Onlyon 09-16-2024 Orders Only [id number] Ike Flannery 1970 Date Provider Department Center 09/16/2024 [id number], HISTORICAL [facility] Family History Adopted: Yes Problem Relation Age of Onset Heart attack Father Family Status - Relation Status Age at Father [facility] Follow-Upon 09-13-2024 Follow-Up [id number] Ike Flannery 1970 Provider Department Center 09/13/2024 [id number] [facility] Family History Adopted: Yes Problem Relation Age of Onset Heart attack Father Family Status - Relation Status Age at Father Level of Service:08798 NC OFFICE/OUTPATIENT ESTABLISHED MOD MDM [address] [facility] CNOPon 09-07-2024 CNOP Operative Note (Enc) (NSCAMN) Encounter Status:Closed by JOSUE MCCAIN on 09/07/24 [facility] CNOVon 09-07-2024 CNOV Office Visit (NOGKCA ) IKE FLANNERY ([id number]) 1970 F Date Time Provider Department 09/07/24 9:00 AM PLACEMENT VIVIENNE MICHAEL During your [...] abuse: no Allergies reviewed with patient, yes. [id number] Mask completed. To imaging for CT Scan [...] Hinds Colleen, RN 09/07/2024 11:06 AM Signed [facility] Gamma Knife [place] Discharge Instructions As with any surgery there [...] a physician or hospital other than the [facility] with any problem related to the Gamma Knife procedure, please call your physician, Dr. Sherly Mccain at [phone]. After your treatment, you may experience a [...] call your physician, Dr. Sherly Mccain at [phone] Thursday through Thursday 8:00 am to 5:00 pm. In the evening or on weekends, call [phone] or toll-free [phone] and ask the carton filling machine operator to page your neurosurgeon's resident natural history collections curator. Referring Provider: JOSUE MCCAIN [[id number]] Allergies As of Date: 09/07/2024 Noted Allergy [...] See Comments (more content not included)... Normal [facility] CT BRAIN WO IVCONon 09-08-19 25 [...] gamma knife planning, no acute intracranial pathology. Conventional Machinist: PSCWillis Transcribe Date/Time: Sep 07 2024 9:09A Dictated by : SMILEY GASCA MD This examination was interpreted and the report reviewed and electronically signed by: SMILEY GASCA MD on Sep 07 2024 9:11AM EST [id number] Normal [facility] CT Head WO contraston 2024 Radiology Study observation (narrative) [facility] IMPRESSION: Imaging for gamma knife planning, no acute intracranial pathology. Conventional Machinist: PSC Transcribe Date/Time: Sep 07 2024 9:09A Dictated [...] tissues are unremarkable. DIVISION OF RADIOLOGY Provider, Evie Regina jaramillo [place] - 09/07/2024 * * *Final Report* * [...] gamma knife planning, no acute intracranial pathology. Conventional Machinist: CARLOS Transcribe Date/Time: Sep 07 2024 9:09A Dictated by : SMILEY GASCA MD This examination was interpreted and the report reviewed and electronically signed by: SMILEY GASCA MD on Sep 07 2024 9:11AM EST [facility] CT Head WO contrastOrdered B y: Ccf Provider on 09-07-2024 [facility] MR Guidance for stereotactic localization of Brain-- W contrast Ash[place] 09-07-2024 IMPRESSION: Unchanged presumed metastases in the inferior left frontal lobe and cerebellar vermis. Unchanged small enhancing nodule at the periphery of the left frontal lobe, possibly an additional metastasis or an incidental meningioma. No new enhancing lesion. Conventional Machinist: PSCB Transcribe Date/Time: Sep 07 2024 8:44A Dictated by : SMILEY GASCA MD This examination was interpreted and the report reviewed and electronically signed by: SMILEY GASCA MD on Sep 07 2024 8:54AM [facility] DIVISION OF RADIOLOGY * * *Final Report* [...] cisterns are patent. DIVISION OF RADIOLOGY [facility], [facility]/07/[facility]24 * * *Final Report* [...] an incidental meningioma. No new enhancing lesion. Conventional Machinist: PSCB Transcribe Date/Time: Sep 07 2024 8:44A Dictated by : SMILEY GASCA MD This examination was interpreted and the report reviewed and electronically signed by: SMILEY GASCA MD on Sep 07 2024 8:54AM EST [facility] Radiology Study observation (narrative) [facility] MR Guidance for stereotactic localization of Brain-- W contrast IVOrdered By: Ccf Provider on 09-07-2024 [facility] MRI BRAIN LOCAL W IVCONon MRI [...] an incidental meningioma. No new enhancing lesion. Conventional Machinist: [facility] Transcribe Date/Time: Sep 07 2024 8:44A Dictated by : SMILEY GASCA MD This examination was interpreted and the report reviewed and electronically signed by: SMILEY GASCA MD on Sep 07 2024 8:54AM EST [id number] Normal [facility] CBC W Auto Differential pane l (Bld)on 09-01-2024 Basophils (Bld) [#/Vol] 10*3/uL Normal <0.11 [facility] Comment on above: Order Comment: Anitha alex Type: BLOOD SPECIMEN Ordering Facility: [facility] Address: [address] [place] [address] Performed By: #### 5 7021-8 #### [facility] CLIA [id number] [address] [place] [address] [place] Basophils/100 WBC (Bld) 0.1 % Normal [facility] Comment on above: Order Comment: Speci men Type: BLOOD SPECIMEN Ordering Facility: [facility] Address: [address] [place] [address] Performed By: #### 5 7021-8 #### [facility] CLIA [id number] [address] [place] [address] [place] Differential cell count method Nom (Bld) Auto Normal [facility] Comment on above: Order Comment: Speci men Type: BLOOD SPECIMEN Ordering Facility: [facility] Address: [address] [place] [address] Performed By: #### 5 7021-8 #### [facility] CLIA [id number] [address] [place] [address] [place] Eosinophils (Bld) [#/Vol] 10*3/uL Normal <0.46 [facility] Comment on above: Order Comment: Speci men Type: BLOOD SPECIMEN Ordering Facility: [facility] Address: [address] [place] [address] Performed By: #### 5 7021-8 #### [facility] CLIA [id number] [address] [place] [address] [place] Eosinophils/100 WBC (Bld) 0.0 % Normal [facility] Comment on above: Order Comment: Speci men Type: BLOOD SPECIMEN Ordering Facility: [facility] Address: [address] [place] [address] Performed By: #### 5 7021-8 #### [facility] CLIA [id number] [address] [place] [address] [place] Erythrocyte distribution width (RBC) [Ratio] 19.4 % High 11.5-15.0 [facility] Comment on above: Order Comment: Speci men Type: BLOOD SPECIMEN Ordering Facility: [facility] Address: [address] [place] [address] Performed By: #### 5 7021-8 #### [facility] CLIA [id number] [address] [place] [address] [place] Hematocrit (Bld) [Volume fraction] 28.1 % Low 36.0-46.0 [facility] Comment on above: Order Comment: Speci men Type: BLOOD SPECIMEN Ordering Facility: [facility] Address: [address] [place] [address] Performed By: #### 5 7021-8 #### [facility] CLIA [id number] [address] [place] [address] [place] Hemoglobin (Bld) [Mass/Vol] 9.5 g/dL Low 11.5-15.5 [facility] Comment on above: Order Comment: Speci men Type: BLOOD SPECIMEN Ordering Facility: [facility] Address: [address] [place] [address] Performed By: #### 5 7021-8 #### [facility] CLIA [id number] [address] [place] [address] [place] Immature granulocytes (Bld) [#/Vol] 0.07 10*3/uL Normal <0.10 [facility] Comment on above: Order Comment: Speci men Type: BLOOD SPECIMEN Ordering Facility: [facility] Address: [address] [place] [address] Performed By: #### 5 7021-8 #### [facility] CLIA [id number] [address] [place] [address] [place] Immature granulocytes/100 WBC (Bld) 0.9 % Normal [facility] Comment on above: Order Comment: Speci men Type: BLOOD SPECIMEN Ordering Facility: [facility] Address: [address] [place] [address] Performed By: #### 5 7021-8 #### [facility] CLIA [id number] [address] [place] [address] [place] Lymphocytes (Bld) [#/Vol] 1.22 10*3/uL Normal 1.00-4.00 [facility] Comment on above: Order Comment: Speci men Type: BLOOD SPECIMEN Ordering Facility: [facility] Address: [address] [place] [address] Performed By: #### 5 7021-8 #### [facility] CLIA [id number] [address] [place] [address] [place] Lymphocytes/100 WBC (Bld) 16.1 % Normal [facility] Comment on above: Order Comment: Speci men Type: BLOOD SPECIMEN Ordering Facility: [facility] Address: [address] [place] [address] Performed By: #### 5 7021-8 #### [facility] CLIA [id number] [address] [place] [address] [place] MCH (RBC) [Entitic mass] 32.8 pg Normal 26.0-34.0 [facility] Comment on above: Order Comment: Speci men Type: BLOOD SPECIMEN Ordering Facility: [facility] Address: [address] [place] [address] Performed By: #### 5 7021-8 #### [facility] CLIA [id number] [address] [place] [address] [place] MCHC (RBC) [Mass/Vol] 33.8 g/dL Normal 30.5-36.0 [facility] Comment on above: Order Comment: Speci men Type: BLOOD SPECIMEN Ordering Facility: [facility] Address: [address] [place] [address] Performed By: #### 5 7021-8 #### [facility] CLIA [id number] [address] [place] [address] [place] MCV (RBC) [Entitic vol] 96.9 fL Normal 80.0-100.0 [facility] Comment on above: Order Comment: Speci men Type: BLOOD SPECIMEN Ordering Facility: [facility] Address: [address] [place] [address] Performed By: #### 5 7021-8 #### [facility] CLIA [id number] [address] [place] [address] [place] Monocytes (Bld) [#/Vol] 0.38 10*3/uL Normal <0.87 [facility] Comment on above: Order Comment: Speci men Type: BLOOD SPECIMEN Ordering Facility: [facility] Address: [address] [place] [address] Performed By: #### 5 7021-8 #### [facility] CLIA [id number] [address] [place] [address] [place] Monocytes/100 WBC (Bld) 5.0 % Normal [facility] Comment on above: Order Comment: Speci men Type: BLOOD SPECIMEN Ordering Facility: [facility] Address: [address] [place] [address] Performed By: #### 5 7021-8 #### [facility] CLIA [id number] [address] [place] [address] [place] Neutrophils (Bld) [#/Vol] 5.88 10*3/uL Normal 1.45-7.50 [facility] Comment on above: Order Comment: Speci men Type: BLOOD SPECIMEN Ordering Facility: [facility] Address: [address] [place] [address] Performed By: #### 5 7021-8 #### [facility] CLIA [id number] [address] [place] [address] [place] Neutrophils/100 WBC (Bld) 77.9 % Normal [facility] Comment on above: Order Comment: Speci men Type: BLOOD SPECIMEN Ordering Facility: [facility] Address: [address] [place] [address] Performed By: #### 5 7021-8 #### [facility] CLIA [id number] [address] [place] [address] [place] Nucleated RBC (Bld) [#/Vol] 10*3/uL Normal <0.01 [facility] Comment on above: Order Comment: Speci men Type: BLOOD SPECIMEN Ordering Facility: [facility] Address: [address] [place] [address] Performed By: #### 5 7021-8 #### [facility] CLIA [id number] [address] [place] [address] [place] Nucleated RBC/100 WBC (Bld) [Ratio] 0.0 /100 WBC Normal [facility] Comment on above: Order Comment: Speci men Type: BLOOD SPECIMEN Ordering Facility: [facility] Address: [address] [place] [address] Performed By: #### 5 7021-8 #### [facility] CLIA [id number] [address] [place] [address] [place] Platelet mean volume (Bld) [Entitic vol] 9.4 fL Normal 9.0-12.7 [facility] Comment on above: Order Comment: Speci men Type: BLOOD SPECIMEN Ordering Facility: [facility] Address: [address] [place] [address] Performed By: #### 5 7021-8 #### [facility] CLIA [id number] [address] [place] [address] [place] Platelets (Bld) [#/Vol] 210 10*3/uL Normal 150-400 [facility] Comment on above: Order Comment: Speci men Type: BLOOD SPECIMEN Ordering Facility: [facility] Address: [address] [place] [address] Performed By: #### 5 7021-8 #### [facility] CLIA [id number] [address] [place] [address] [place] RBC (Bld) [#/Vol] 2.90 10*6/uL Low 3.90-5.20 [facility] Comment on above: Order Comment: Speci men Type: BLOOD SPECIMEN Ordering Facility: [facility] Address: [address] [place] [address] Performed By: #### 5 7021-8 #### [facility] CLIA [id number] [address] [place] [address] [place] WBC (Bld) [#/Vol] 7.56 10*3/uL Normal 3.70-11.00 [facility] Comment on above: Order Comment: Speci men Type: BLOOD SPECIMEN Ordering Facility: [facility] Address: [address] [place] [address] Performed By: #### 5 7021-8 #### [facility] CLIA [id number] [address] [place] [address] [place] [address] [place] CNDSon 09-01-2024 CNDS HNO ID: [id number] Author: EV CORTEZ DO Service: Oncology Author Type: Physician Type: Discharge Summary Filed: 09/01/2024 21:54 Note Text: DISCHARGE SUMMARY PATIENT NAME: Ike Flannery ADMISSION DATE: 08/26/2024 DISCHARGE DATE: 09/01/2024 ATTENDING PHYSICIAN: Ev Cortez Code Status: Full Code PCP: Kaye Manuel CNP, CNP Highest Readmission Risk Score: 20 The 30 [...] -CA Bld 09/16/2024 7:30 AM Alessandra Syed APRN.PLATE CONDITIONER HEMCA4 Main -CA Bld Follow Up Orders [...] and new finding of brain metastases at [facility]. About 1.5 weeks prior to arrival, shortly after starting Xeloda, she noticed slurred speech and right hand weakness (e.g., difficulty signing her name). Her oncologist obtained a CT brain which showed a new intracranial mass, therefore she was sent to [facility] ED. They were not able to obtain an MRI due to the presence of a tissue solar power installer in her right breast. She was transferred to [facility] to coordinate MRI brain and to transition her multidisciplinary care. Currently she is managed by 4-5 hospitals in [facility] for oncology, ID and plastic surgery with scattered medical records, however would like one centralized medical center. 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 High-dose IV steroids with dexamethasone were started. Plastic Surgery was consulted and removed her right breast tissue solar power installer so that MRI could be done. MRI [...] mets inpatient, 08/31/24. - Right breast tissue solar power installer removed before MRI on 08/30/24. - CT brain w/wo IV contrast 08/26/24: Enhancing lesion in the cerebellar vermis, li (more content not included)... 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 Treated by ID (Dr Noguera in [place]) with Amikacin 750 mg MWF, Imipenem 1 [...] amkacin, omada (more content not included)... Normal [facility] Comprehensive metabolic 2000 panelon 09-01-2024 Albumin [Mass/Vol] 3.7 g/dL Low 3.9-4.9 [facility] Comment on above: Order Comment: Speci abi Type: BLOOD SPECIMEN Ordering Facility: [facility] Address: [address] [place] [address] Performed By: #### 5 7021-8 #### [facility] CLIA [id number] [address] [place] [address] [place] ALP [Catalytic activity/Vol] 75 U/L Normal 34-123 [facility] Comment on above: Order Comment: Speci abi Type: BLOOD SPECIMEN Ordering Facility: [facility] Address: [address] [place] [address] Performed By: #### 5 7021-8 #### [facility] CLIA [id number] [address] [place] [address] [place] ALT [Catalytic activity/Vol] 109 U/L High 7-38 [facility] Comment on above: Order Comment: Speci men Type: BLOOD SPECIMEN Ordering Facility: [facility] Address: [address] [place] [address] Performed By: #### 5 7021-8 #### [facility] CLIA [id number] [address] [place] [address] [place] Anion gap [Moles/Vol] 10 mmol/L Normal 8-15 [facility] Comment on above: Order Comment: Speci men Type: BLOOD SPECIMEN Ordering Facility: [facility] Address: [address] [place] [address] Performed By: #### 5 7021-8 #### [facility] CLIA [id number] [address] [place] [address] [place] AST [Catalytic activity/Vol] 72 U/L High 13-35 [facility] Comment on above: Order Comment: Speci men Type: BLOOD SPECIMEN Ordering Facility: [facility] Address: [address] [place] [address] Performed By: #### 5 7021-8 #### [facility] CLIA [id number] [address] [place] [address] [place] Bilirubin [Mass/Vol] 0.5 mg/dL Normal 0.2-1.3 [facility] Comment on above: Order Comment: Speci men Type: BLOOD SPECIMEN Ordering Facility: [facility] Address: [address] [place] [address] Performed By: #### 5 7021-8 #### [facility] CLIA [id number] [address] [place] [address] [place] Calcium [Mass/Vol] 8.9 mg/dL Normal 8.5-10.2 [facility] Comment on above: Order Comment: Speci men Type: BLOOD SPECIMEN Ordering Facility: [facility] Address: [address] [place] [address] Performed By: #### 5 7021-8 #### [facility] CLIA [id number] [address] [place] [address] [place] Chloride [Moles/Vol] 107 mmol/L Normal 98-107 [facility] Comment on above: Order Comment: Speci men Type: BLOOD SPECIMEN Ordering Facility: [facility] Address: [address] [place] [address] Performed By: #### 5 7021-8 #### [facility] CLIA [id number] [address] [place] [address] [place] CO2 [Moles/Vol] 23 mmol/L Normal 22-30 [facility] Comment on above: Order Comment: Speci men Type: BLOOD SPECIMEN Ordering Facility: [facility] Address: [address] [place] [address] Performed By: #### 5 7021-8 #### [facility] CLIA [id number] [address] [place] [address] STATES [facility] Creatinine [Mass/Vol] 1.03 mg/dL High 0.58-0.96 [facility] Comment on above: Order Comment: Speci men Type: BLOOD SPECIMEN Ordering Facility: [facility] Address: [address] [place] [address] Performed By: #### 5 7021-8 #### [facility] CLIA [id number] [address] [place] [address] Creatinine and Glomerular filtration rate.predicted panel (S/P/Bld) 65 mL/min/1.73m??? Normal >=60 [facility] Comment on above: Order Comment: Speci men Type: BLOOD SPECIMEN Ordering Facility: [facility] Address: [address] [place] [address] Result Comment: Latasha mated Glomerular Filtration Rate [...] GFR. Performed By: #### 5 7021-8 #### [facility] CLIA [id number] [address] [id number] [address] [place] Glucose [Mass/Vol] 105 mg/dL High 74-99 [facility] Comment on above: Order Comment: Specjenna alex Type: BLOOD SPECIMEN Ordering Facility: [facility] Address: [address] [place] [address] Result Comment: The [place] [employer] (ADA) provides guidance for cutoff [...] Standards of Medical Care in Diabetes 2016, [place] [employer]. Diabetes Care. 2016.39(Suppl 1). Performed By: #### 5 7021-8 #### [facility] CLIA [id number] [address] [place] [address] [place] Potassium [Moles/Vol] 4.0 mmol/L Normal 3.7-5.1 [facility] Comment on above: Order Comment: Anitha alex Type: BLOOD SPECIMEN Ordering Facility: [facility] Address: [address] [place] [address] Performed By: #### 5 7021-8 #### [facility] CLIA [id number] [address] [place] [address] [place] Protein [Mass/Vol] 5.7 g/dL Low 6.3-8.0 [facility] Comment on above: Order Comment: Anitha alex Type: BLOOD SPECIMEN Ordering Facility: [facility] Address: [address] [place] [address] Performed By: #### 5 7021-8 #### [facility] CLIA [id number] [address] [place] [address] [place] Sodium [Moles/Vol] 140 mmol/L Normal 136-144 [facility] Comment on above: Order Comment: Speci men Type: BLOOD SPECIMEN Ordering Facility: [facility] Address: [address] [place], [place] [address] Performed By: #### 5 7021-8 #### [facility] CLIA [id number] [address] [place], [place] [address] [place] Urea nitrogen [Mass/Vol] 19 mg/dL Normal 7-21 [facility] Comment on above: Order Comment: Speci men Type: BLOOD SPECIMEN Ordering Facility: [facility] Address: [address] [place] [address] Performed By: #### 5 7021-8 #### [facility] CLIA [id number] [address] [place], [place] [address] [place] Magnesium SerPl-mCncon 09-01 Magnesium [Mass/Vol] 2.1 mg/dL Normal 1.7-2.3 [facility] Comment on above: Order Comment: Speci men Type: BLOOD SPECIMEN Ordering Facility: [facility] Address: [address] [place] [address] Performed By: #### 5 7021-8 #### [facility] CLIA [id number] [address] [place], [place] [address] [place] Phosphate SerPl-mCncon 09-01 Phosphate [Mass/Vol] 3.4 mg/dL Normal 2.7-4.8 [facility] Comment on above: Order Comment: Speci men Type: BLOOD SPECIMEN Ordering Facility: [facility] Address: [address] [place], [place] [address] Performed By: #### 5 7021-8 #### [facility] CLIA [id number] [address] [place], [place] [address] [place] SOCIAL WORKon 09-01-2024 SOCIAL WORK HNO ID: [id number] Author: Jenna BARILLAS LISW Service: Social Work Author Type: Photo Manager Type: Social Work Filed: 09/01/2024 17:00 Note [...] Unit G70. Signature: KIMBERLY Mcwilliams Oncology Clinical Photo Manager Pager: [phone] Date: September 01, 2024 Time: 4:55 PM [facility] 08-31-2024 ALLIED [facility] HNO ID: [id number] Author: SUZETTE CERNA Art Therapist Service: Art Therapy Author Type: [...] provider. Will follow up as able. SIGNATURE: Dusty Barker Therapist PATIENT NAME: Ike Flannery DATE: August 31, 2024 TIME: 3:40 PM PAGER/CONTACT #: [phone] [facility] HNO ID: [id number] Author: EDUARDO MERDANO RT(R) Service: Radiology Author Type: Technologist Type: [...] PATIENT PRESENTS WITH AN IMPLANTABLE OR ATTACHED RF ENGINEER: No RADIOLOGY DEPARTMENT: MR; Exam(s) Completed: Head: Routine Brain. Aromatherapy Administered: No PERIPHERAL IV DATA: Inpatient: see LDA documentation SIGNED BY: Eduardo Medrano RT(R) August 31, 2024 7:06 AM Normal [facility] Amikacin Trough SerPl-mCncon 08-31-2024 Amikacin trough [Mass/Vol] <0.8 Low 5.0-8.0 [facility] Comment on above: Order Comment: Anitha alex Type: BLOOD SPECIMENOrdering Facility: [facility] Address: [address] [place] [address] Result Comment: Refe rence ranges and high/low indicator flags are provided as general guidelines only. The treating physician must determine appropriate target levels/dosing based on the specific clinical situation. Result rechecked. Performed By: #### 3 321-7 ####[facility] [id number] [place] [address] [place] CBC W Auto Differential pane l (Bld)on 08-31-2024 Basophils (Bld) [#/Vol] 10*3/uL Normal <0.11 [facility] Comment on above: Order Comment: Anitha alex Type: BLOOD SPECIMEN Ordering Facility: [facility] Address: [address] [place] [address] Performed By: #### 2 777-1, 99331-6, 33725-7 #### [facility] CLIA [id number] [address] [place] [address] [place] Basophils/100 WBC (Bld) 0.1 % Normal [facility] Comment on above: Order Comment: Anitha alex Type: BLOOD SPECIMEN Ordering Facility: [facility] Address: [address] [place] [address] Performed By: #### 2 777-1, , #### [facility] CLIA [id number] [address] [place] [address] [place] Differential cell count method Nom (Bld) Auto Normal [facility] Comment on above: Order Comment: Speci men Type: BLOOD SPECIMEN Ordering Facility: [facility] Address: [address] [place] [address] Performed By: #### 2 777-1, , #### [facility] CLIA [id number] [address] [place] [address] [place] Eosinophils (Bld) [#/Vol] 10*3/uL Normal <0.46 [facility] Comment on above: Order Comment: Speci men Type: BLOOD SPECIMEN Ordering Facility: [facility] Address: [address] [place] [address] Performed By: #### 2 777-1, , #### [facility] CLIA [id number] [address] [place] [address] [place] Eosinophils/100 WBC (Bld) 0.0 % Normal [facility] Comment on above: Order Comment: Speci men Type: BLOOD SPECIMEN Ordering Facility: [facility] Address: [address] [place] [address] Performed By: #### 2 777-1, , #### [facility] CLIA [id number] [address] [place] [address] [place] Erythrocyte distribution width (RBC) [Ratio] 19.5 % High 11.5-15.0 [facility] Comment on above: Order Comment: Speci men Type: BLOOD SPECIMEN Ordering Facility: [facility] Address: [address] [place] [address] Performed By: #### 2 777-1, , #### [facility] CLIA [id number] [address] [place] [address] [place] Hematocrit (Bld) [Volume fraction] 27.6 % Low 36.0-46.0 [facility] Comment on above: Order Comment: Speci men Type: BLOOD SPECIMEN Ordering Facility: [facility] Address: [address] [place] [address] Performed By: #### 2 777-1, 76325-7, #### [facility] CLIA [id number] [address] [place] [address] [place] Hemoglobin (Bld) [Mass/Vol] 9.3 g/dL Low 11.5-15.5 [facility] Comment on above: Order Comment: Speci men Type: BLOOD SPECIMEN Ordering Facility: [facility] Address: [address] [place] [address] Performed By: #### 2 777-1, 83213-8, #### [facility] CLIA [id number] [address] [place] [address] [place] Immature granulocytes (Bld) [#/Vol] 0.07 10*3/uL Normal <0.10 [facility] Comment on above: Order Comment: Speci men Type: BLOOD SPECIMEN Ordering Facility: [facility] Address: [address] [place] [address] Performed By: #### 2 777-1, 82528-8, #### [facility] CLIA [id number] [address] [place] [address] [place] Immature granulocytes/100 WBC (Bld) 0.8 % Normal [facility] Comment on above: Order Comment: Speci men Type: BLOOD SPECIMEN Ordering Facility: [facility] Address: [address] [place] [address] Performed By: #### 2 777-1, 97414-0, #### [facility] CLIA [id number] [address] [place] [address] [place] Lymphocytes (Bld) [#/Vol] 1.21 10*3/uL Normal 1.00-4.00 [facility] Comment on above: Order Comment: Speci men Type: BLOOD SPECIMEN Ordering Facility: [facility] Address: [address] [place] [address] Performed By: #### 2 777-1, 14889-8, #### [facility] CLIA [id number] [address] [place] [address] [place] Lymphocytes/100 WBC (Bld) 14.5 % Normal [facility] Comment on above: Order Comment: Speci men Type: BLOOD SPECIMEN Ordering Facility: [facility] Address: [address] [place] [address] Performed By: #### 2 777-1, 68055-6, #### [facility] CLIA [id number] [address] [place] [address] [place] MCH (RBC) [Entitic mass] 32.6 pg Normal 26.0-34.0 [facility] Comment on above: Order Comment: Speci men Type: BLOOD SPECIMEN Ordering Facility: [facility] Address: [address] [place] [address] Performed By: #### 2 777-1, 51334-0, #### [facility] CLIA [id number] [address] [place] [address] [place] MCHC (RBC) [Mass/Vol] 33.7 g/dL Normal 30.5-36.0 [facility] Comment on above: Order Comment: Speci men Type: BLOOD SPECIMEN Ordering Facility: [facility] Address: [address] [place] [address] Performed By: #### 2 777-1, 87936-8, #### [facility] CLIA [id number] [address] [place] [address] [place] MCV (RBC) [Entitic vol] 96.8 fL Normal 80.0-100.0 [facility] Comment on above: Order Comment: Speci men Type: BLOOD SPECIMEN Ordering Facility: [facility] Address: [address] [place] [address] Performed By: #### 2 777-1, 24756-8, 24018-6 #### [facility] CLIA [id number] [address] [place] [address] [place] Monocytes (Bld) [#/Vol] 0.49 10*3/uL Normal <0.87 [facility] Comment on above: Order Comment: Speci men Type: BLOOD SPECIMEN Ordering Facility: [facility] Address: [address] [place] [address] Performed By: #### 2 777-1, 62375-7, #### [facility] CLIA [id number] [address] [place] [address] [place] Monocytes/100 WBC (Bld) 5.9 % Normal [facility] Comment on above: Order Comment: Speci men Type: BLOOD SPECIMEN Ordering Facility: [facility] Address: [address] [place] [address] Performed By: #### 2 777-1, 76275-9, #### [facility] CLIA [id number] [address] [place] [address] [place] Neutrophils (Bld) [#/Vol] 6.59 10*3/uL Normal 1.45-7.50 [facility] Comment on above: Order Comment: Speci men Type: BLOOD SPECIMEN Ordering Facility: [facility] Address: [address] [place] [address] Performed By: #### 2 777-1, 15653-4, 48364-3 #### [facility] CLIA [id number] [address] [place] [address] [place] Neutrophils/100 WBC (Bld) 78.7 % Normal [facility] Comment on above: Order Comment: Speci men Type: BLOOD SPECIMEN Ordering Facility: [facility] Address: [address] [place] [address] Performed By: #### 2 777-1, 43061-2, #### [facility] CLIA [id number] [address] [place] [address] [place] Nucleated RBC (Bld) [#/Vol] 10*3/uL Normal <0.01 [facility] Comment on above: Order Comment: Speci men Type: BLOOD SPECIMEN Ordering Facility: [facility] Address: [address] [place] [address] Performed By: #### 2 777-1, , #### [facility] CLIA [id number] [address] [place] [address] [place] Nucleated RBC/100 WBC (Bld) [Ratio] 0.0 /100 WBC Normal [facility] Comment on above: Order Comment: Speci men Type: BLOOD SPECIMEN Ordering Facility: [facility] Address: [address] [place] [address] Performed By: #### 2 777-1, , #### [facility] CLIA [id number] [address] [place] [address] [place] Platelet mean volume (Bld) [Entitic vol] 9.3 fL Normal 9.0-12.7 [facility] Comment on above: Order Comment: Speci men Type: BLOOD SPECIMEN Ordering Facility: [facility] Address: [address] [place] [address] Performed By: #### 2 777-1, 23274-1, #### [facility] CLIA [id number] [address] [place] [address] [place] Platelets (Bld) [#/Vol] 209 10*3/uL Normal 150-400 [facility] Comment on above: Order Comment: Speci men Type: BLOOD SPECIMEN Ordering Facility: [facility] Address: [address] [place] [address] Performed By: #### 2 777-1, 73017-4, 35473-9 #### [facility] CLIA [id number] [address] [place] [address] [place] RBC (Bld) [#/Vol] 2.85 10*6/uL Low 3.90-5.20 [facility] Comment on above: Order Comment: Speci men Type: BLOOD SPECIMEN Ordering Facility: [facility] Address: [address] [place] [address] Performed By: #### 2 777-1, 05067-0, 63865-3 #### [facility] CLIA [id number] [address] [place] [address] [place] WBC (Bld) [#/Vol] 8.37 10*3/uL Normal 3.70-11.00 [facility] Comment on above: Order Comment: Speci men Type: BLOOD SPECIMEN Ordering Facility: [facility] Address: [address] [place] [address] Performed By: #### 2 777-1, 54739-2, 65569-3 #### [facility] CLIA [id number] [address] [place] [address] [place] CONSULT PROGon 08-31-2024 CONSULT PROG HNO ID: [id number] Author: DEENA VU DO Service: Plastic Surgery Author Type: Resident Type: Consult Progress Note Filed: 08/31/2024 13:35 Note Text: PLASTIC SURGERY PROGRESS NOTE OR DATE: 08/30/2024 1 Day Post-Op Procedure(s) (LRB): REMOVAL OF TISSUE SUPERVISOR CURED MEATS(S) W/O INSERTION OF IMPLANT (Right) DEBRIDEMENT MUSCLE/FASCIAFIRST [...] for fluid collection. ARTEMIO in place with SS output DATA: Intake/Output Summary (Last 24 hours) [...] 3.1 3.8 SIGNATURE: Deena Vu DO PAGER: [phone] (Plastics pager) Date of Service: August 31, 2024 [facility] CONSULT PROG HNO ID: [id number] Author: CHRISTY DA SILVA MD Service: Infectious Disease Author Type: Physician Type: Consult Progress Note Filed: 08/31/2024 10:37 Note Text: INFECTIOUS DISEASE CONSULT SERVICE PROGRESS NOTE Date: August 31, 2024 Patient Name: Ike Flannery INTERVAL HISTORY/24HOUR EVENTS: S/p 08/30/24 Procedure(s): 1. Excisional biopsy right breast skin 2. Explantation of right breast tissue solar power installer intact 3. Debridement of right breast pocket for closure and 20 x 20 cm Plastics recommended wound vac for L breast wound. MRI brain this morning Afebrile Tmax 36.5C. WBC 8.3. Cr 1.1 Feeling well today, no fevers or chills. 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 Treated by ID (Dr Noguera in [place]) with Amikacin 750 mg MWF, Imipenem 1 [...] requiring mul (more content not included)... Normal [facility] Comprehensive metabolic 2000 panelon 08-31-2024 Albumin [Mass/Vol] 3.7 g/dL Low 3.9-4.9 [facility] Comment on above: Order Comment: Speci men Type: BLOOD SPECIMEN Ordering Facility: [facility] Address: [address] [place] [address] Performed By: #### 2 777-1, 23990-7, #### [facility] CLIA [id number] [address] [place] [address] [place] ALP [Catalytic activity/Vol] 77 U/L Normal 34-123 [facility] Comment on above: Order Comment: Speci men Type: BLOOD SPECIMEN Ordering Facility: [facility] Address: [address] [place] [address] Performed By: #### 2 777-1, 08137-8, #### [facility] CLIA [id number] [address] [place] [address] [place] ALT [Catalytic activity/Vol] 95 U/L High 7-38 [facility] Comment on above: Order Comment: Speci men Type: BLOOD SPECIMEN Ordering Facility: [facility] Address: [address] [place] [address] Performed By: #### 2 777-1, 83831-5, #### [facility] CLIA [id number] [address] [place], [place] [address] [place] Anion gap [Moles/Vol] 10 mmol/L Normal 8-15 [facility] Comment on above: Order Comment: Speci men Type: BLOOD SPECIMEN Ordering Facility: [facility] Address: [address] [place] [address] Performed By: #### 2 777-1, 35699-9, #### [facility] CLIA [id number] [address] [place] [address] [place] AST [Catalytic activity/Vol] 79 U/L High 13-35 [facility] Comment on above: Order Comment: Speci men Type: BLOOD SPECIMEN Ordering Facility: [facility] Address: [address] [place] [address] Performed By: #### 2 777-1, 08329-6, #### [facility] CLIA [id number] [address] [place], [place] [address] [place] Bilirubin [Mass/Vol] 0.4 mg/dL Normal 0.2-1.3 [facility] Comment on above: Order Comment: Speci men Type: BLOOD SPECIMEN Ordering Facility: [facility] Address: [address] [place] [address] Performed By: #### 2 777-1, 88673-1, #### [facility] CLIA [id number] [address] [place] [address] [place] Calcium [Mass/Vol] 9.1 mg/dL Normal 8.5-10.2 [facility] Comment on above: Order Comment: Speci men Type: BLOOD SPECIMEN Ordering Facility: [facility] Address: [address] [place] [address] Performed By: #### 2 777-1, 19459-7, #### [facility] CLIA [id number] [address] [place] [address] [place] Chloride [Moles/Vol] 106 mmol/L Normal 98-107 [facility] Comment on above: Order Comment: Speci men Type: BLOOD SPECIMEN Ordering Facility: [facility] Address: [address] [place] [address] Performed By: #### 2 777-1, 07759-2, #### [facility] CLIA [id number] [address] [place] [address] [place] CO2 [Moles/Vol] 24 mmol/L Normal 22-30 [facility] Comment on above: Order Comment: Speci men Type: BLOOD SPECIMEN Ordering Facility: [facility] Address: [address] [place] [address] Performed By: #### 2 777-1, 63420-1, #### [facility] CLIA [id number] [address] [place] [address] [place] Creatinine [Mass/Vol] 1.10 mg/dL High 0.58-0.96 [facility] Comment on above: Order Comment: Speci men Type: BLOOD SPECIMEN Ordering Facility: [facility] Address: [address] [place] [address] Performed By: #### 2 777-1, 83987-6, #### [facility] CLIA [id number] [address] [place] [address] [place] Creatinine and Glomerular filtration rate.predicted panel (S/P/Bld) 60 mL/min/1.73m??? Normal >=60 [facility] Comment on above: Order Comment: Anitha alex Type: BLOOD SPECIMEN Ordering Facility: [facility] Address: [address] [place] [address] Result Comment: Latasha mated Glomerular Filtration Rate [...] actual GFR. Performed By: #### 2 777-1, 18414-8, #### [facility] CLIA [id number] [address] [place] [address] [place] Glucose [Mass/Vol] 102 mg/dL High 74-99 [facility] Comment on above: Order Comment: Anitha alex Type: BLOOD SPECIMEN Ordering Facility: [facility] Address: [address] [place] [address] Result Comment: The [place] [employer] Association (ADA) provides guidance for cutoff [...] Standards of Medical Care in Diabetes 2016, [place] [employer]. Diabetes Care. 2016.39(Suppl 1). Performed By: #### 2 777-1, 58641-2, #### [facility] CLIA [id number] [address] [place] [address] [place] Potassium [Moles/Vol] 3.8 mmol/L Normal 3.7-5.1 [facility] Comment on above: Order Comment: Speci men Type: BLOOD SPECIMEN Ordering Facility: [facility] Address: [address] [place] [address] Performed By: #### 2 777-1, , #### [facility] CLIA [id number] [address] [place], [place] [address] [place] Protein [Mass/Vol] 5.7 g/dL Low 6.3-8.0 [facility] Comment on above: Order Comment: Speci men Type: BLOOD SPECIMEN Ordering Facility: [facility] Address: [address] [place], [place] [address] Performed By: #### 2 777-1, , #### [facility] CLIA [id number] [address] [place] [address] [place] Sodium [Moles/Vol] 140 mmol/L Normal 136-144 [facility] Comment on above: Order Comment: Speci men Type: BLOOD SPECIMEN Ordering Facility: [facility] Address: [address] [place] [address] Performed By: #### 2 777-1, , #### [facility] CLIA [id number] [address] [place], [place] [address] [place] Urea nitrogen [Mass/Vol] 19 mg/dL Normal 7-21 [facility] Comment on above: Order Comment: Speci men Type: BLOOD SPECIMEN Ordering Facility: [facility] Address: [address] [place] [address] Performed By: #### 2 777-1, , #### [facility] CLIA [id number] [address] [place] [address] [place] MRI BRAIN WO/W IVCONon 08-31 MRI BRAIN WO/W IVCON * * *Final Report* * * DATE OF EXAM: Aug 31 2024 7:[facility] - MRI BRAIN WO/W IVCON [...] left IAC apex is of unclear etiology. Conventional Machinist: PSCWillis Transcribe Date/Time: Aug 31 2024 7:49A Dictated by : ANA BULLARD MD This examination was interpreted and the report reviewed and electronically signed by: ANA BULLARD MD on Aug 31 2024 7:54AM EST [id number] Normal [facility] Magnesium SerPl-mCncon 08-31 Magnesium [Mass/Vol] 2.1 mg/dL Normal 1.7-2.3 [facility] Comment on above: Order Comment: Speci men Type: BLOOD SPECIMEN Ordering Facility: [facility] Address: [address] [place] [address] Performed By: #### 2 777-1, 82726-8, 62519-5 #### [facility] CLIA [id number] [address] [place] [address] [place] [address] [place] NURSING PROGon 08-31-2024 NURSING PROG HNO ID: [id number] Author: CHAZ WASHBURN RN Service: ? Author [...] August 31, 2024 TIME: 6:35 AM Normal [facility] NUTRITIONon 08-31-2024 NUTRITION HNO ID: [id number] Author: CHRISTIE KEYS DTR Service: Nutrition Therapy Author Type: Dairy Clerk Type: Nutrition Filed: 08/31/2024 13:27 Note Text: NUTRITION THERAPY SHOEMAKER APPRENTICE NOTE SERVICE DATE: 08/31/2024 SERVICE TIME: 1230 Visit Type: Follow-Up Evaluation Goals Met: Met Plan of Care: Supplements: Ensure Max Follow-Up: Tech Reassessment Nursing Admission Assessment Malnutrition Score: 0 [...] August 31, 2024 TIME: 1:27 PM Normal [facility] Phosphate SerPl-mCncon 08-31 Phosphate [Mass/Vol] 2.9 mg/dL Normal 2.7-4.8 [facility] Comment on above: Order Comment: Speci men Type: BLOOD SPECIMEN Ordering Facility: [facility] Address: [address] [place] [address] Performed By: #### 2 777-1, 65030-2, 55870-2 #### [facility] CLIA [id number] [address] [place] [address] [place] ANES POSTPROC EVALon 025 ANES POSTPROC EVAL HNO ID: [id number] Author: NEGAR BUTLER MD Service: ? Author Type: Anesthesiologist Type: Anesthesia Postprocedure Evaluation Filed: 08/30/2024 17:13 Note Text: POST ANESTHESIA EVALUATION NOTE : 1970 Procedure Summary Date: 08/30/24 Room / Location: [address] [facility] Anesthesia Start: 1208 Anesthesia Stop: 1333 Procedures: REMOVAL OF TISSUE SUPERVISOR CURED MEATS(S) W/O INSERTION OF IMPLANT (Right: Breast) DEBRIDEMENT [...] August 30, 2024 TIME: 5:13 PM CSN: [id number] Normal [facility] ANES PRE-OPon 08-30-2024 ANES PRE-OP HNO ID: [id number] Author: NEGAR BUTLER MD Service: ? Author Type: Anesthesiologist Type: Anesthesia Preprocedure Evaluation Filed: 08/30/2024 12:25 Note Text: ANESTHESIOLOGY DAY OF SURGERY NOTE : 1970 Procedure Information Anesthesia Start Date/Time: 08/30/24 1208 Procedures: REMOVAL OF TISSUE SUPERVISOR CURED MEATS(S) W/O INSERTION OF IMPLANT (Right: Breast) DEBRIDEMENT MUSCLE/FASCIAFIRST 20 SQ CM OR LESS TRUNK (Left: Chest) Location: [facility]IN [facility] Surgeons: Precious [place] [...] labs, an (more content not included)... Normal [facility] BREAST MARKERSon 08-30-2024 AP BIOMARKER DISCLAIMER Normal [facility] Comment on above: Order Comment: Speci men Type: BLOOD SPECIMEN Ordering Facility: [facility] Address: [address] [place] [address] Result Comment: Jarod lorenzo Developed Test (LDT) Disclaimer: Performance characteristics of immunohistochemical, immunofluorescent, and chromogenic in-situ hybridization tests have been determined by the performing laboratory within [facility]'s [facility] Department ([facility], [facility], [facility], [facility], [facility], [facility], or [facility]) in a manner consistent with [...] appropriately. Performed By: #### 5 7021-8 #### [facility] CLIA [id number] [address] [place] [address] [place] AP BLOCK ID [id number] Normal [facility] Comment on above: Order Comment: Speci men Type: BLOOD SPECIMEN Ordering Facility: [facility] Address: [address] [place] [address] Performed By: #### 5 7021-8 #### [facility] CLIA [id number] [address] [place] [address] [place] ASCO/CAP GUIDELINES FOR FIXATION MET Indeterminate Normal [facility] Comment on above: Order Comment: Speci men Type: BLOOD SPECIMEN Ordering Facility: [facility] Address: [address] [place] [address] Performed By: #### 5 7021-8 #### [facility] CLIA [id number] [address] [place] [address] BIOMARKER INTERPRETATION COMMENT AND REFERENCE RANGE Normal [facility] Comment on above: Order Comment: Speci men Type: BLOOD SPECIMEN Ordering Facility: [facility] Address: [address] [place] [address] Result Comment: Refe rence Range for Hormone Receptors: Staining for NC of greater than or equal to 1% of the tumor cells is considered positive. Staining for ER of 1-10% of the tumor cells is considered low positive. Staining for ER of greater than 10% of the tumor cells is considered positive. Staining for ER or NC of less than 1% is considered negative. [...] cancers. Performed By: #### 5 7021-8 #### [facility] CLIA [id number] [address] [place] [address] [place] BIOMARKER METHOD Normal [facility] Comment on above: Order Comment: Speci men Type: BLOOD SPECIMEN Ordering Facility: [facility] Address: [address] [place] [address] Result Comment: Estr ogen Receptor: Food and Drug Administration (FDA) cleared: [place], [place], [place] Primary Antibody: SP1 Progesterone Receptor: FDA cleared: [place], [place], [place] Primary Antibody: IE2 HER2 (ERBB2) by IHC: FDA cleared: [place], [place], [place] Primary Antibody:4B5 The hormone receptor tests were performed and reported in accordance with the guidelines approved by the [place] Society [employer] Clinical Oncologists and the College of [place] Pathologists. Micaela SOTO, et al. Estrogen and Progesterone Receptor Testing in Breast Cancer: [place] Society of Clinical Oncologists and the College of [place] Pathologists Guideline Update. Arch Pathol Lab Med. 2019;144(5):545-563. PMID: [id number]. The hormone receptor assays have been internally validated on decalcified tissues (for [facility] only). Estrogen and progesterone receptor results are valid if tissue was processed according to ASCO/CAP guidelines. Antibody and Detection System: [place]'s Pathway anti-HER2 rabbit monoclonal antibody (clone 4B5), [place] Confirm anti-estrogen receptor rabbit monoclonal antibody (clone SP1) and [place] anti-progesterone receptor rabbit monoclonal antibody (clone IE2) detected with the [place] UltraView Univeral DAB Detection Kit (indirect biotin-free detection), [place]la, [place], [place]. Control Slides: Cell line controls with high, equivocal, low, and negative HER2 protein expression, along with known positive control tissue and the patient's tissue, are evaluated for HER2 expression. The HER2 immunohistochemistry assay was developed, validated, scored, and reported in accordance with the guidelines approved by the [place] [employer] Oncologists and the College of [place] Pathologists. Bacilio SIEGEL et al. Arch Pathol Lab Med. 2018;1379(9) The HER2 assay has not been validated on decalcified tissues. Given the possibility of false negative results on decalcified specimens, results should be interpreted with caution. Performed By: #### 5 7021-8 #### [facility] CLIA [id number] [address] [place], [place] [address] [place] [address] [place] BREAST TUMOR GRADE Not Graded Normal [facility] Comment on above: Order Comment: Speci men Type: BLOOD SPECIMEN Ordering Facility: [facility] Address: [address] [place] [id number] Performed By: #### 5 7021-8 #### [facility] CLIA [id number] [address] [address] [place] [facility] CASE NUMBER INVASIVE [id number] Normal [facility] Comment on above: Order Comment: Speci men Type: BLOOD SPECIMEN Ordering Facility: [facility] Address: [address] [place], [place] [address] Performed By: #### 5 7021-8 #### [facility] CLIA [id number] [address] [place], [place] [address] [place] COLD ISCHEMIA TIME Not Provided Normal [facility] Comment on above: Order Comment: Speci men Type: BLOOD SPECIMEN Ordering Facility: [facility] Address: [address] [place] [address] Performed By: #### 5 7021-8 #### [facility] CLIA [id number] [address] [place], [place] [address] [place] ESTROGEN RECEPTOR (% TUMOR STAINING) 5 Normal [facility] Comment on above: Order Comment: Speci men Type: BLOOD SPECIMEN Ordering Facility: [facility] Address: [address] [place], [place] [address] Performed By: #### 5 7021-8 #### [facility] CLIA [id number] [address] [place] [address] [place] ESTROGEN RECEPTOR (STAINING INTENSITY) Weak Normal [facility] Comment on above: Order Comment: Speci men Type: BLOOD SPECIMEN Ordering Facility: [facility] Address: [address] [place], [place] [address] Performed By: #### 5 7021-8 #### [facility] CLIA [id number] [address] [place], [place] [address] [place] ESTROGEN RECEPTOR EXTERNAL CONTROL Present and Stained as Expected Normal [facility] Comment on above: Order Comment: Speci men Type: BLOOD SPECIMEN Ordering Facility: [facility] Address: [address] [place] [address] Performed By: #### 5 7021-8 #### [facility] CLIA [id number] [address] [place] [address] [place] ESTROGEN RECEPTOR INTERNAL CONTROL Absent Normal [facility] Comment on above: Order Comment: Speci men Type: BLOOD SPECIMEN Ordering Facility: [facility] Address: [address] [place] [address] Performed By: #### 5 7021-8 #### [facility] CLIA [id number] [address] [place] [address] [place] ESTROGEN RECEPTOR STATUS (INVASIVE) Positive Normal [facility] Comment on above: Order Comment: Speci men Type: BLOOD SPECIMEN Ordering Facility: [facility] Address: [address] [place] [address] Performed By: #### 5 7021-8 #### [facility] CLIA [id number] [address] [place] [address] [place] FIXATIVE Formalin, 10% Neutra l Buffered Normal [facility] Comment on above: Order Comment: Speci men Type: BLOOD SPECIMEN Ordering Facility: [facility] Address: [address] [place] [address] Performed By: #### 5 7021-8 #### [facility] CLIA [id number] [address] [place] [address] [place] HER2 SCORE 0 Normal [facility] Comment on above: Order Comment: Speci men Type: BLOOD SPECIMEN Ordering Facility: [facility] Address: [address] [place] [address] Result Comment: HER2 Ultralow assessment for HER2 [...] Philip A, Stephon X, Bethany R, Aurelia Driscoll, Jack POLLARD, Alissa JA, Mary H, Deya HeardY, Mckinney Q, Elena C, Andreas L, Oliver J, Im SA, L???vdiandra C, Praveen W, Sera N, Fabio Heard, Rodrigo G, Gilma Jaramillo; [id number] Trial Investigators. Trastuzumab Deruxtecan after Endocrine Therapy in Metastatic Breast Cancer. N Engl J Med. 2023Nov 14. doi: 10.1056/[id number]. Epub ahead of print. PMID: [id number]. Sedrick Jaramillo, Amando Heard, Bill Pedro, Azra A, John B, Mayco H, Yoshi E, Harpreet Stone, Pankaj Berry. Development and Validation of a HER2-Low Focused Immunohistochemical Scoring System With High-Interobserver Concordance: The [place] HER2-Low Breast Cancer Concordance Study. Mod Pathol. 2023;37(8):196607. doi: 10.1016/j.modpat.2023.502327. Epub 2023Aug 07. PMID: [id number]. Performed By: #### 5 7021-8 #### [facility] IA [id number] [address] [place] [address] [place] HER2 STATUS (INVASIVE) Negative Normal [facility] Comment on above: Order Comment: Speci men Type: BLOOD SPECIMEN Ordering Facility: [facility] Address: [address] [place] [address] Performed By: #### 5 7021-8 #### [facility] CLIA [id number] [address] [place] [address] [place] PROGESTERONE RECEPTOR (% TUMOR STAINING) 0 Normal [facility] Comment on above: Order Comment: Speci men Type: BLOOD SPECIMEN Ordering Facility: [facility] Address: [address] [place] [address] Performed By: #### 5 7021-8 #### [facility] CLIA [id number] [address] [address] [place] PROGESTERONE RECEPTOR (STAINING INTENSITY) Not Applicable Normal [facility] Comment on above: Order Comment: Speci men Type: BLOOD SPECIMEN Ordering Facility: [facility] Address: [address] [place], [place] [address] Performed By: #### 5 7021-8 #### [facility] CLIA [id number] [address] [place] [address] [place] PROGESTERONE RECEPTOR EXTERNAL CONTROL Present and Stained as Expected Normal [facility] Comment on above: Order Comment: Speci men Type: BLOOD SPECIMEN Ordering Facility: [facility] Address: [address] [place], [place] [address] Performed By: #### 5 7021-8 #### [facility] CLIA [id number] [address] [place] [address] [place] PROGESTERONE RECEPTOR INTERNAL CONTROL Absent Normal [facility] Comment on above: Order Comment: Speci men Type: BLOOD SPECIMEN Ordering Facility: [facility] Address: [address] [place], [place] [address] Performed By: #### 5 7021-8 #### [facility] CLIA [id number] [address] [place] [address] [place] PROGESTERONE RECEPTOR STATUS (INVASIVE) Negative Normal [facility] Comment on above: Order Comment: Speci men Type: BLOOD SPECIMEN Ordering Facility: [facility] Address: [address] [place] [address] Performed By: #### 5 7021-8 #### [facility] CLIA [id number] [address] [place] [address] [place] TOTAL FIXATION TIME Not Provided Normal [facility] Comment on above: Order Comment: Speci men Type: BLOOD SPECIMEN Ordering Facility: [facility] Address: [address] [place] [address] Performed By: #### 5 7021-8 #### [facility] CLIA [id number] [address] [place] [address] [place] TUMOR TYPE (INVASIVE) Carcinoma Normal [facility] Comment on above: Order Comment: Speci men Type: BLOOD SPECIMEN Ordering Facility: [facility] Address: [address] [place] [address] Performed By: #### 5 7021-8 #### [facility] CLIA [id number] [address] [place] [address] [place] WAS SPECIMEN DECALCIFIED No Normal [facility] Comment on above: Order Comment: Speci men Type: BLOOD SPECIMEN Ordering Facility: [facility] Address: [address] [place] [address] Performed By: #### 5 7021-8 #### [facility] CLIA [id number] [address] [place] [address] [place] CBC W Auto Differential pane l (Bld)on 08-30-2024 Basophils (Bld) [#/Vol] 10*3/uL Normal <0.11 [facility] Comment on above: Order Comment: Speci men Type: BLOOD SPECIMEN Ordering Facility: [facility] Address: [address] [place] [address] Performed By: #### 5 7021-8 #### [facility] CLIA [id number] [address] [place] [address] [place] Basophils/100 WBC (Bld) 0.1 % Normal [facility] Comment on above: Order Comment: Speci men Type: BLOOD SPECIMEN Ordering Facility: [facility] Address: [address] [place] [address] Performed By: #### 5 7021-8 #### [facility] CLIA [id number] [address] [place] [address] [place] Differential cell count method Nom (Bld) Auto Normal [facility] Comment on above: Order Comment: Speci men Type: BLOOD SPECIMEN Ordering Facility: [facility] Address: [address] [place] [address] Performed By: #### 5 7021-8 #### [facility] CLIA [id number] [address] [place] [address] [place] Eosinophils (Bld) [#/Vol] 10*3/uL Normal <0.46 [facility] Comment on above: Order Comment: Speci men Type: BLOOD SPECIMEN Ordering Facility: [facility] Address: [address] [place] [address] Performed By: #### 5 7021-8 #### [facility] CLIA [id number] [address] [place] [address] [place] Eosinophils/100 WBC (Bld) 0.0 % Normal [facility] Comment on above: Order Comment: Speci men Type: BLOOD SPECIMEN Ordering Facility: [facility] Address: [address] [place] [address] Performed By: #### 5 7021-8 #### [facility] CLIA [id number] [address] [place] [address] [place] Erythrocyte distribution width (RBC) [Ratio] 19.4 % High 11.5-15.0 [facility] Comment on above: Order Comment: Speci men Type: BLOOD SPECIMEN Ordering Facility: [facility] Address: [address] [place] [address] Performed By: #### 5 7021-8 #### [facility] CLIA [id number] [address] [place] [address] [place] Hematocrit (Bld) [Volume fraction] 27.7 % Low 36.0-46.0 [facility] Comment on above: Order Comment: Speci men Type: BLOOD SPECIMEN Ordering Facility: [facility] Address: [address] [place] [address] Performed By: #### 5 7021-8 #### [facility] CLIA [id number] [address] [place] [address] [place] Hemoglobin (Bld) [Mass/Vol] 9.4 g/dL Low 11.5-15.5 [facility] Comment on above: Order Comment: Speci men Type: BLOOD SPECIMEN Ordering Facility: [facility] Address: [address] [place] [address] Performed By: #### 5 7021-8 #### [facility] CLIA [id number] [address] [place] [address] [place] Immature granulocytes (Bld) [#/Vol] 0.11 10*3/uL High <0.10 [facility] Comment on above: Order Comment: Speci men Type: BLOOD SPECIMEN Ordering Facility: [facility] Address: [address] [place] [address] Performed By: #### 5 7021-8 #### [facility] CLIA [id number] [address] [place] [address] [place] Immature granulocytes/100 WBC (Bld) 1.2 % Normal [facility] Comment on above: Order Comment: Speci men Type: BLOOD SPECIMEN Ordering Facility: [facility] Address: [address] [place] [address] Performed By: #### 5 7021-8 #### [facility] CLIA [id number] [address] [place] [address] [place] Lymphocytes (Bld) [#/Vol] 1.09 10*3/uL Normal 1.00-4.00 [facility] Comment on above: Order Comment: Speci men Type: BLOOD SPECIMEN Ordering Facility: [facility] Address: [address] [place] [address] Performed By: #### 5 7021-8 #### [facility] CLIA [id number] [address] [place] [address] [place] Lymphocytes/100 WBC (Bld) 11.6 % Normal [facility] Comment on above: Order Comment: Speci men Type: BLOOD SPECIMEN Ordering Facility: [facility] Address: [address] [place] [address] Performed By: #### 5 7021-8 #### [facility] CLIA [id number] [address] [place] [address] [place] MCH (RBC) [Entitic mass] 32.8 pg Normal 26.0-34.0 [facility] Comment on above: Order Comment: Speci men Type: BLOOD SPECIMEN Ordering Facility: [facility] Address: [address] [place] [address] Performed By: #### 5 7021-8 #### [facility] CLIA [id number] [address] [place] [address] [place] MCHC (RBC) [Mass/Vol] 33.9 g/dL Normal 30.5-36.0 [facility] Comment on above: Order Comment: Speci men Type: BLOOD SPECIMEN Ordering Facility: [facility] Address: [address] [place] [address] Performed By: #### 5 7021-8 #### [facility] CLIA [id number] [address] [place] [address] [place] MCV (RBC) [Entitic vol] 96.5 fL Normal 80.0-100.0 [facility] Comment on above: Order Comment: Speci men Type: BLOOD SPECIMEN Ordering Facility: [facility] Address: [address] [place] [address] Performed By: #### 5 7021-8 #### [facility] CLIA [id number] [address] [place] [address] [place] Monocytes (Bld) [#/Vol] 0.32 10*3/uL Normal <0.87 [facility] Comment on above: Order Comment: Speci men Type: BLOOD SPECIMEN Ordering Facility: [facility] Address: [address] [place] [address] Performed By: #### 5 7021-8 #### [facility] CLIA [id number] [address] [place] [address] [place] Monocytes/100 WBC (Bld) 3.4 % Normal [facility] Comment on above: Order Comment: Speci men Type: BLOOD SPECIMEN Ordering Facility: [facility] Address: [address] [place] [address] Performed By: #### 5 7021-8 #### [facility] CLIA [id number] [address] [place] [address] [place] Neutrophils (Bld) [#/Vol] 7.83 10*3/uL High 1.45-7.50 [facility] Comment on above: Order Comment: Speci men Type: BLOOD SPECIMEN Ordering Facility: [facility] Address: [address] [place] [address] Performed By: #### 5 7021-8 #### [facility] CLIA [id number] [address] [place] [address] [place] Neutrophils/100 WBC (Bld) 83.7 % Normal [facility] Comment on above: Order Comment: Speci men Type: BLOOD SPECIMEN Ordering Facility: [facility] Address: [address] [place] [address] Performed By: #### 5 7021-8 #### [facility] CLIA [id number] [address] [place], [place] [address] [place] Nucleated RBC (Bld) [#/Vol] 10*3/uL Normal <0.01 [facility] Comment on above: Order Comment: Speci men Type: BLOOD SPECIMEN Ordering Facility: [facility] Address: [address] [place] [address] Performed By: #### 5 7021-8 #### [facility] CLIA [id number] [address] [place], [place] [address] [place] Nucleated RBC/100 WBC (Bld) [Ratio] 0.0 /100 WBC Normal [facility] Comment on above: Order Comment: Speci men Type: BLOOD SPECIMEN Ordering Facility: [facility] Address: [address] [place] [address] Performed By: #### 5 7021-8 #### [facility] CLIA [id number] [address] [place] [address] [place] Platelet mean volume (Bld) [Entitic vol] 9.6 fL Normal 9.0-12.7 [facility] Comment on above: Order Comment: Speci men Type: BLOOD SPECIMEN Ordering Facility: [facility] Address: [address] [place] [address] Performed By: #### 5 7021-8 #### [facility] CLIA [id number] [address] [place] [address] [place] Platelets (Bld) [#/Vol] 242 10*3/uL Normal 150-400 [facility] Comment on above: Order Comment: Speci men Type: BLOOD SPECIMEN Ordering Facility: [facility] Address: [address] [place] [address] Performed By: #### 5 7021-8 #### [facility] CLIA [id number] [address] [place] [address] [place] RBC (Bld) [#/Vol] 2.87 10*6/uL Low 3.90-5.20 [facility] Comment on above: Order Comment: Speci men Type: BLOOD SPECIMEN Ordering Facility: [facility] Address: [address] [place] [address] Performed By: #### 5 7021-8 #### [facility] CLIA [id number] [address] [place] [address] [place] WBC (Bld) [#/Vol] 9.36 10*3/uL Normal 3.70-11.00 [facility] Comment on above: Order Comment: Speci men Type: BLOOD SPECIMEN Ordering Facility: [facility] Address: [address] [place] [address] Performed By: #### 5 7021-8 #### [facility] CLIA [id number] [address] [place] [address] [place] Comprehensive metabolic 2000 panelon 08-30-2024 Albumin [Mass/Vol] 4.0 g/dL Normal 3.9-4.9 [facility] Comment on above: Order Comment: Speci men Type: BLOOD SPECIMEN Ordering Facility: [facility] Address: [address] [place] [address] Performed By: #### 5 7021-8 #### [facility] CLIA [id number] [address] [place] [address] [place] ALP [Catalytic activity/Vol] 82 U/L Normal 34-123 [facility] Comment on above: Order Comment: Speci men Type: BLOOD SPECIMEN Ordering Facility: [facility] Address: [address] [place] [address] Performed By: #### 5 7021-8 #### [facility] CLIA [id number] [address] [place] [address] [place] ALT [Catalytic activity/Vol] 86 U/L High 7-38 [facility] Comment on above: Order Comment: Speci men Type: BLOOD SPECIMEN Ordering Facility: [facility] Address: [address] [place] [address] Performed By: #### 5 7021-8 #### [facility] CLIA [id number] [address] [place], [place] [address] [place] Anion gap [Moles/Vol] 12 mmol/L Normal 8-15 [facility] Comment on above: Order Comment: Speci men Type: BLOOD SPECIMEN Ordering Facility: [facility] Address: [address] [place], [place] [address] Performed By: #### 5 7021-8 #### [facility] CLIA [id number] [address] [place] [address] [place] AST [Catalytic activity/Vol] 62 U/L High 13-35 [facility] Comment on above: Order Comment: Speci men Type: BLOOD SPECIMEN Ordering Facility: [facility] Address: [address] [place] [address] Performed By: #### 5 7021-8 #### [facility] CLIA [id number] [address] [place] [address] [place] Bilirubin [Mass/Vol] 0.5 mg/dL Normal 0.2-1.3 [facility] Comment on above: Order Comment: Speci men Type: BLOOD SPECIMEN Ordering Facility: [facility] Address: [address] [place] [address] Performed By: #### 5 7021-8 #### [facility] CLIA [id number] [address] [place] [address] [place] Calcium [Mass/Vol] 9.7 mg/dL Normal 8.5-10.2 [facility] Comment on above: Order Comment: Speci men Type: BLOOD SPECIMEN Ordering Facility: [facility] Address: [address] [place] [address] Performed By: #### 5 7021-8 #### [facility] CLIA [id number] [address] [place] [address] [place] Chloride [Moles/Vol] 108 mmol/L High 98-107 [facility] Comment on above: Order Comment: Speci men Type: BLOOD SPECIMEN Ordering Facility: [facility] Address: [address] [place] [address] Performed By: #### 5 7021-8 #### [facility] CLIA [id number] [address] [place] [address] [place] CO2 [Moles/Vol] 23 mmol/L Normal 22-30 [facility] Comment on above: Order Comment: Speci men Type: BLOOD SPECIMEN Ordering Facility: [facility] Address: [address] [place] [address] Performed By: #### 5 7021-8 #### [facility] CLIA [id number] [address] [place] [address] [place] Creatinine [Mass/Vol] 1.06 mg/dL High 0.58-0.96 [facility] Comment on above: Order Comment: Anitha men Type: BLOOD SPECIMEN Ordering Facility: [facility] Address: [address] [place] [address] Performed By: #### 5 7021-8 #### [facility] CLIA [id number] [address] [place] [address] [place] Creatinine and Glomerular filtration rate.predicted panel (S/P/Bld) 63 mL/min/1.73m??? Normal >=60 [facility] Comment on above: Order Comment: Anitha alex Type: BLOOD SPECIMEN Ordering Facility: [facility] Address: [address] [place] [address] Result Comment: Latasha mated Glomerular Filtration Rate [...] GFR. Performed By: #### 5 7021-8 #### [facility] CLIA [id number] [address] [place] [address] [place] Glucose [Mass/Vol] 113 mg/dL High 74-99 [facility] Comment on above: Order Comment: Anitha abi Type: BLOOD SPECIMEN Ordering Facility: [facility] Address: [address] [place] [address] Result Comment: The [place] [employer] (ADA) provides guidance for cutoff [...] Standards of Medical Care in Diabetes 2016, [place] [employer]. Diabetes Care. 2016.39(Suppl 1). Performed By: #### 5 7021-8 #### [facility] CLIA [id number] [address] [place] [address] [place] Potassium [Moles/Vol] 4.0 mmol/L Normal 3.7-5.1 [facility] Comment on above: Order Comment: Anitha alex Type: BLOOD SPECIMEN Ordering Facility: [facility] Address: [address] [place] [address] Performed By: #### 5 7021-8 #### [facility] CLIA [id number] [address] [place] [address] [place] Protein [Mass/Vol] 6.1 g/dL Low 6.3-8.0 [facility] Comment on above: Order Comment: Anitha alex Type: BLOOD SPECIMEN Ordering Facility: [facility] Address: [address] [place] [address] Performed By: #### 5 7021-8 #### [facility] CLIA [id number] [address] [place] [address] [place] Sodium [Moles/Vol] 143 mmol/L Normal 136-144 [facility] Comment on above: Order Comment: Phyliciai abi Type: BLOOD SPECIMEN Ordering Facility: [facility] Address: [address] [place] [address] Performed By: #### 5 7021-8 #### [facility] CLIA [id number] [address] [place] [address] [place] Urea nitrogen [Mass/Vol] 19 mg/dL Normal 7-21 [facility] Comment on above: Order Comment: Speci men Type: BLOOD SPECIMEN Ordering Facility: [facility] Address: [address] [place] [address] Performed By: #### 5 7021-8 #### [facility] CLIA [id number] [address] [place] [address] Magnesium SerPl-mCncon 08-30 Magnesium [Mass/Vol] 2.0 mg/dL Normal 1.7-2.3 [facility] Comment on above: Order Comment: Speci men Type: BLOOD SPECIMEN Ordering Facility: [facility] Address: [address] [place] [address] Performed By: #### 2 777-1, 01889-2, 91003-1 #### [facility] CLIA [id number] [address] [place] [address] [place] OPERATIVE NOon 08-30-2024 OPERATIVE NO HNO ID: [id number] Author: PRECIOUS [place] MD Service: Plastic Surgery Author Type: Physician Type: Operative Report Filed: 08/30/2024 13:04 Note Text: PLASTIC SURGERY OPERATION NOTE LOG ID: [id number] Surgery/Procedure Date: 08/30/2024 Incision/Procedure Start Time: 12:39 PM Incision Close/Procedure End Time: Surgeon(s)/Procedurali st(s) and Education Manager(s): Surgeons and Role: * Precious Colorado MD - Primary * Deena Vu DO - Resident - Assisting * Ralph Durbin MD - Resident - Assisting Procedure(s): 1. Excisional biopsy right breast skin 2. Explantation of right breast tissue solar power installer intact 3. Debridement of right breast pocket for closure and 20 x 20 cm Anesthesia: General Findings: Intact textured implant Indications: This is a 53-year-old female who presented with concern for brain metastasis requiring additional intervention. She had 2 port tissue solar power installer in place and was unable to get appropriate workup in order to complete treatment assessment. Is recommended she undergo tissue solar power installer removal. Response alternatives were present including bleeding, [...] capsule and noted an intact textured Sientra solar power installer. This was perforated with a 15 blade scalpel and the fluid was injected. The solar power installer was removed without difficulty. There is no other concerning lesions and the capsule was otherwise intact. Capsule was extensively fully fulgurated with a electrocautery tip in order to facilitate closure. The incision was infiltrated with local anesthesia. We then placed a 15 Yi helpless Garfield drain within the wound bed [...] 08/30/2024 12:40 PM B : right breast solar power installer Implant/Device/Foreign Body Hardware/Device/Foreig n Body SURGICAL PATHOLOGY Precious Colorado MD 08/30/2024 12:41 PM Complications: None Pre-Op/Pre-Procedure Diagnosis: s/p right breast tissue solar power installer incompatible with MRI Post-Op/Post-Procedure Diagnosis: Same as above SIGNATURE: Precious Colorado MD PATIENT NAME: Ike Flannery DATE: August 30, 2024 TIME: 1:00 PM PAGER/CONTACT #: Normal [facility] Pathology biopsy report Fredrick (Tiss)on 08-30-2024 AP DISCLAIMER Normal [facility] Comment on above: Order Comment: Speci men Type: BLOOD SPECIMEN Ordering Facility: [facility] Address: [address] [place] [address] Result Comment: Jarod lorenzo Developed Test (LDT) Disclaimer: Performance characteristics of immunohistochemical, immunofluorescent, and chromogenic in-situ hybridization tests have been determined by the performing laboratory within [facility]'s [facility] and [facility] Medicine Department ([facility], [facility], [facility], [facility], [facility], [facility], or [facility]) in a manner consistent with [...] appropriately. Performed By: #### 5 7021-8 #### [facility] CLIA [id number] [address] [place] [address] [place] CASE REPORT Normal [facility] Comment on above: Order Comment: Speci men Type: BLOOD SPECIMEN Ordering Facility: [facility] Address: [address] [place] [address] Result Comment: Surg ical Pathology Report Case: [id number] Authorizing Provider: Precious Colorado MD Collected: 08/30/2024 12:40 PM Ordering Location: Admitting Received: 08/30/2024 01:02 PM Pathologist: Tracie Hutchinson MD Specimens: A) - Soft Tissue (Not otherwise specified), right breast skin B) - Hardware/Device/Foreign Body, right breast solar power installer Performed By: #### 5 7021-8 #### [facility] CLIA [id number] [address] [place] [address] [place] CLINICAL HISTORY Normal [facility] Comment on above: Order Comment: Speci abi Type: BLOOD SPECIMEN Ordering Facility: [facility] Address: [address] [place] [address] Result Comment: Pre- op diagnosis: Cancer (HCC) [C80.1] History of reconstruction of both breasts [Z98.890] Performed By: #### 5 7021-8 #### [facility] CLIA [id number] [address] [place] [address] [place] DIAGNOSIS COMMENT The morphologic features are compatible with breast origin. The lesion measures up to 10 mm and extends to inked specimen margins. ER, NC and HER2 are pending and will be reported separately. Normal [facility] Comment on above: Order Comment: Speci abi Type: BLOOD SPECIMEN Ordering Facility: [facility] Address: [address] [place] [address] Performed By: #### 5 7021-8 #### [facility] CLIA [id number] [address] [place] [address] FINAL DIAGNOSIS Normal [facility] Comment on above: Order Comment: Anitha alex Type: BLOOD SPECIMEN Ordering Facility: [facility] Address: [address] [place] [address] Result Comment: A. R ight breast skin, excision: - Carcinoma involving dermis, see comment. B. Right breast, solar power installer removal: - Grossly unremarkable, collapsed, textured solar power installer (Gross examination only). SS/MLG at 1420 EDT Performed By: #### 5 7021-8 #### [facility] CLIA [id number] [address] [place] [address] OF [facility] GROSS DESCRIPTION Normal [facility] Comment on above: Order Comment: Phyliciai abi Type: BLOOD SPECIMEN Ordering Facility: [facility] Address: [address] [place] [address] Result Comment: A. S oft Tissue (Not [...] 08/30/24 4:17 PM Gross examination performed at [facility], [address] [place] [address] B. Hardware/Device/Foreign Body Received fresh labeled as right breast tissue solar power installer is a collapsed textured solar power installer weighing 144.10 g and measuring 15.0 x 14.0 x 2.0 cm with the following inscription ALLOX2 SIENTRA FH 14 . No soft tissue is present. No sections are submitted. The specimen is reviewed with Dr. Kerns. Gross examination only. [facility] 08/30/24 1:20 PM Gross examination performed at [facility], [address] [place] [address] Performed By: #### 5 7021-8 #### [facility] CLIA [id number] [address] [place] [address] [place] Phosphate SerPl-mCncon 08-30 Phosphate [Mass/Vol] 3.1 mg/dL Normal 2.7-4.8 [facility] Comment on above: Order Comment: Speci men Type: BLOOD SPECIMEN Ordering Facility: [facility] Address: [address] [place] [address] Performed By: #### 2 777-1, 48815-2, 01635-0 #### [facility] CLIA [id number] [address] [place] [address] [place] Tiss Path Bx reporton 2024 FINAL PERFORMING LAB Normal [facility] Comment on above: Order Comment: Speci men Type: BLOOD SPECIMEN Ordering Facility: [facility] Address: [address] [place] [address] Result Comment: Diag nostic interpretation performed at: [facility], [address] [place] [address] [place] [address] CLIA# [id number] Weekday Babysitter: Derick Meadows MD Performed By: #### 5 7021-8 #### [facility] CLIA [id number] [address] [place] [address] [place] Result Comment: Diag nostic interpretation performed at: [facility], [address] [place] [address] [place] [address] CLIA# [id number] Weekday Babysitter: Derick Meadows MD Electronically signed out by: Tracie Hutchinson MD CBC W Auto Differential pane l (Bld)on 08-29-2024 Basophils (Bld) [#/Vol] 10*3/uL Normal <0.11 [facility] Comment on above: Order Comment: Speci men Type: BLOOD SPECIMEN Ordering Facility: [facility] Address: [address] [place] [address] Performed By: #### 5 7021-8 #### [facility] CLIA [id number] [address] [place] [address] [place] Basophils/100 WBC (Bld) 0.1 % Normal [facility] Comment on above: Order Comment: Speci men Type: BLOOD SPECIMEN Ordering Facility: [facility] Address: [address] [place] [address] Performed By: #### 5 7021-8 #### [facility] CLIA [id number] [address] [place], [place] [id number] [place] Differential cell count method Nom (Bld) Auto Normal [facility] Comment on above: Order Comment: Speci men Type: BLOOD SPECIMEN Ordering Facility: [facility] Address: [address] [place] [address] Performed By: #### 5 7021-8 #### [facility] CLIA [id number] [address] [place] [address] [place] Eosinophils (Bld) [#/Vol] 10*3/uL Normal <0.46 [facility] Comment on above: Order Comment: Speci men Type: BLOOD SPECIMEN Ordering Facility: [facility] Address: [address] [place] [address] Performed By: #### 5 7021-8 #### [facility] CLIA [id number] [address] [place] [address] [place] Eosinophils/100 WBC (Bld) 0.0 % Normal [facility] Comment on above: Order Comment: Speci men Type: BLOOD SPECIMEN Ordering Facility: [facility] Address: [address] [place] [address] Performed By: #### 5 7021-8 #### [facility] CLIA [id number] [address] [place] [address] [place] Erythrocyte distribution width (RBC) [Ratio] 19.1 % High 11.5-15.0 [facility] Comment on above: Order Comment: Speci men Type: BLOOD SPECIMEN Ordering Facility: [facility] Address: [address] [place] [address] Performed By: #### 5 7021-8 #### [facility] CLIA [id number] [address] [place] [address] [place] Hematocrit (Bld) [Volume fraction] 27.1 % Low 36.0-46.0 [facility] Comment on above: Order Comment: Speci men Type: BLOOD SPECIMEN Ordering Facility: [facility] Address: [address] [place] [address] Performed By: #### 5 7021-8 #### [facility] CLIA [id number] [address] [place] [address] [place] Hemoglobin (Bld) [Mass/Vol] 9.1 g/dL Low 11.5-15.5 [facility] Comment on above: Order Comment: Speci men Type: BLOOD SPECIMEN Ordering Facility: [facility] Address: [address] [place] [address] Performed By: #### 5 7021-8 #### [facility] CLIA [id number] [address] [place] [address] [place] Immature granulocytes (Bld) [#/Vol] 0.08 10*3/uL Normal <0.10 [facility] Comment on above: Order Comment: Speci men Type: BLOOD SPECIMEN Ordering Facility: [facility] Address: [address] [place] [address] Performed By: #### 5 7021-8 #### [facility] CLIA [id number] [address] [place] [address] [place] Immature granulocytes/100 WBC (Bld) 0.8 % Normal [facility] Comment on above: Order Comment: Speci men Type: BLOOD SPECIMEN Ordering Facility: [facility] Address: [address] [place] [address] Performed By: #### 5 7021-8 #### [facility] CLIA [id number] [address] [place] [address] [place] Lymphocytes (Bld) [#/Vol] 0.90 10*3/uL Low 1.00-4.00 [facility] Comment on above: Order Comment: Speci men Type: BLOOD SPECIMEN Ordering Facility: [facility] Address: [address] [place] [address] Performed By: #### 5 7021-8 #### [facility] CLIA [id number] [address] [place] [address] [place] Lymphocytes/100 WBC (Bld) 9.1 % Normal [facility] Comment on above: Order Comment: Speci men Type: BLOOD SPECIMEN Ordering Facility: [facility] Address: [address] [place] [address] Performed By: #### 5 7021-8 #### [facility] CLIA [id number] [address] [place], [place] [address] [place] MCH (RBC) [Entitic mass] 31.9 pg Normal 26.0-34.0 [facility] Comment on above: Order Comment: Speci men Type: BLOOD SPECIMEN Ordering Facility: [facility] Address: [address] [place] [address] Performed By: #### 5 7021-8 #### [facility] CLIA [id number] [address] [place] [address] [place] MCHC (RBC) [Mass/Vol] 33.6 g/dL Normal 30.5-36.0 [facility] Comment on above: Order Comment: Speci men Type: BLOOD SPECIMEN Ordering Facility: [facility] Address: [address] [place] [address] Performed By: #### 5 7021-8 #### [facility] CLIA [id number] [address] [place] [address] [place] MCV (RBC) [Entitic vol] 95.1 fL Normal 80.0-100.0 [facility] Comment on above: Order Comment: Speci men Type: BLOOD SPECIMEN Ordering Facility: [facility] Address: [address] [place] [address] Performed By: #### 5 7021-8 #### [facility] CLIA [id number] [address] [place] [address] [place] Monocytes (Bld) [#/Vol] 0.43 10*3/uL Normal <0.87 [facility] Comment on above: Order Comment: Speci men Type: BLOOD SPECIMEN Ordering Facility: [facility] Address: [address] [place] [address] Performed By: #### 5 7021-8 #### [facility] CLIA [id number] [address] [place] [address] [place] Monocytes/100 WBC (Bld) 4.4 % Normal [facility] Comment on above: Order Comment: Speci men Type: BLOOD SPECIMEN Ordering Facility: [facility] Address: [address] [place] [address] Performed By: #### 5 7021-8 #### [facility] CLIA [id number] [address] [place] [address] [place] Neutrophils (Bld) [#/Vol] 8.44 10*3/uL High 1.45-7.50 [facility] Comment on above: Order Comment: Speci men Type: BLOOD SPECIMEN Ordering Facility: [facility] Address: [address] [place] [address] Performed By: #### 5 7021-8 #### [facility] CLIA [id number] [address] [place] [address] [place] Neutrophils/100 WBC (Bld) 85.6 % Normal [facility] Comment on above: Order Comment: Speci men Type: BLOOD SPECIMEN Ordering Facility: [facility] Address: [address] [place] [address] Performed By: #### 5 7021-8 #### [facility] CLIA [id number] [address] [place] [address] [place] Nucleated RBC (Bld) [#/Vol] 10*3/uL Normal <0.01 [facility] Comment on above: Order Comment: Speci men Type: BLOOD SPECIMEN Ordering Facility: [facility] Address: [address] [place] [address] Performed By: #### 5 7021-8 #### [facility] CLIA [id number] [address] [place] [address] [place] Nucleated RBC/100 WBC (Bld) [Ratio] 0.0 /100 WBC Normal [facility] Comment on above: Order Comment: Speci men Type: BLOOD SPECIMEN Ordering Facility: [facility] Address: [address] [place] [address] Performed By: #### 5 7021-8 #### [facility] CLIA [id number] [address] [place] [address] [place] Platelet mean volume (Bld) [Entitic vol] 9.2 fL Normal 9.0-12.7 [facility] Comment on above: Order Comment: Speci men Type: BLOOD SPECIMEN Ordering Facility: [facility] Address: [address] [place] [address] Performed By: #### 5 7021-8 #### [facility] CLIA [id number] [address] [place] [address] [place] Platelets (Bld) [#/Vol] 242 10*3/uL Normal 150-400 [facility] Comment on above: Order Comment: Speci men Type: BLOOD SPECIMEN Ordering Facility: [facility] Address: [address] [place] [address] Performed By: #### 5 7021-8 #### [facility] CLIA [id number] [address] [place] [address] [place] RBC (Bld) [#/Vol] 2.85 10*6/uL Low 3.90-5.20 [facility] Comment on above: Order Comment: Speci men Type: BLOOD SPECIMEN Ordering Facility: [facility] Address: [address] [place] [address] Performed By: #### 5 7021-8 #### [facility] CLIA [id number] [address] [place] [address] [place] WBC (Bld) [#/Vol] 9.86 10*3/uL Normal 3.70-11.00 [facility] Comment on above: Order Comment: Speci men Type: BLOOD SPECIMEN Ordering Facility: [facility] Address: [address] [place] [address] Performed By: #### 5 7021-8 #### [facility] CLIA [id number] [address] [place] [address] [place] CONSULTon 08-29-2024 CONSULT HNO ID: [id number] Author: RJ KERR, RESTAURANT ASSISTANT MANAGER.SENIOR PROJECT COORDINATOR Service: Wound Care Team Author Type: Clinical [...] if recommendations are needed. Rj Kerr, MSN, RESTAURANT ASSISTANT MANAGER, ACNS-BC, CWOCN Normal [facility] CONSULT PROGon 08-29-2024 CONSULT PROG HNO ID: [id number] Author: CHRISTY DA SILVA MD Service: Infectious [...] is a 53 year old female from [facility] with -HTN -anemia -LLE DVT on Eliquis -R breast cancer 04/2023 s/p chemo x 16 cycles through 09/29/2023 followed by bilateral mastectomy with b/l expanders c/b L sided seroma -10/2023 bilateral skin sparing mastectomies and tissue explander reconstruction complicated by infected seroma L side - 11/27/2023 : Left breast IANDD and solar power installer removal - 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 Treated by [facility] (Dr Noguera in [place]) with Amikacin 750 mg MWF, Imipenem 1 [...] have right sided brain mass. Transferred to [facility] for management. Needs right tissue solar power installer to be removed in order to get MRI in order to be evaluated for radiation therapy. Planned for (more content not included)... Normal [facility] Comprehensive metabolic 2000 panelon 08-29-2024 Albumin [Mass/Vol] 3.9 g/dL Normal 3.9-4.9 [facility] Comment on above: Order Comment: Speci men Type: BLOOD SPECIMEN Ordering Facility: [facility] Address: [address] [place] [address] Performed By: #### 5 7021-8 #### [facility] CLIA [id number] [address] [place] [address] [place] ALP [Catalytic activity/Vol] 86 U/L Normal 34-123 [facility] Comment on above: Order Comment: Speci men Type: BLOOD SPECIMEN Ordering Facility: [facility] Address: [address] [place] [address] Performed By: #### 5 7021-8 #### [facility] CLIA [id number] [address] [place] [address] [place] ALT [Catalytic activity/Vol] 72 U/L High 7-38 [facility] Comment on above: Order Comment: Speci men Type: BLOOD SPECIMEN Ordering Facility: [facility] Address: [address] [place] [address] Performed By: #### 5 7021-8 #### [facility] CLIA [id number] [address] [place] [address] [place] Anion gap [Moles/Vol] 13 mmol/L Normal 8-15 [facility] Comment on above: Order Comment: Speci men Type: BLOOD SPECIMEN Ordering Facility: [facility] Address: [address] [place] [address] Performed By: #### 5 7021-8 #### [facility] CLIA [id number] [address] [place] [address] [place] AST [Catalytic activity/Vol] 51 U/L High 13-35 [facility] Comment on above: Order Comment: Speci men Type: BLOOD SPECIMEN Ordering Facility: [facility] Address: [address] [place] [address] Performed By: #### 5 7021-8 #### [facility] CLIA [id number] [address] [place] [address] [place] Bilirubin [Mass/Vol] 0.5 mg/dL Normal 0.2-1.3 [facility] Comment on above: Order Comment: Speci men Type: BLOOD SPECIMEN Ordering Facility: [facility] Address: [address] [place] [address] Performed By: #### 5 7021-8 #### [facility] CLIA [id number] [address] [place] [address] [place] Calcium [Mass/Vol] 9.2 mg/dL Normal 8.5-10.2 [facility] Comment on above: Order Comment: Speci men Type: BLOOD SPECIMEN Ordering Facility: [facility] Address: [address] [place] [address] Performed By: #### 5 7021-8 #### [facility] CLIA [id number] [address] [place] [address] [place] Chloride [Moles/Vol] 109 mmol/L High 98-107 [facility] Comment on above: Order Comment: Speci men Type: BLOOD SPECIMEN Ordering Facility: [facility] Address: [address] [place] [address] Performed By: #### 5 7021-8 #### [facility] CLIA [id number] [address] [place] [address] [place] CO2 [Moles/Vol] 21 mmol/L Low 22-30 [facility] Comment on above: Order Comment: Speci men Type: BLOOD SPECIMEN Ordering Facility: [facility] Address: [address] [place] [address] Performed By: #### 5 7021-8 #### [facility] CLIA [id number] [address] [place] [address] [place] Creatinine [Mass/Vol] 1.09 mg/dL High 0.58-0.96 [facility] Comment on above: Order Comment: Anitha alex Type: BLOOD SPECIMEN Ordering Facility: [facility] Address: [address] [place] [address] Performed By: #### 5 7021-8 #### [facility] CLIA [id number] [address] [place] [address] [place] Creatinine and Glomerular filtration rate.predicted panel (S/P/Bld) 61 mL/min/1.73m??? Normal >=60 [facility] Comment on above: Order Comment: Anitha alex Type: BLOOD SPECIMEN Ordering Facility: [facility] Address: [address] [place] [address] Result Comment: Latasha mated Glomerular Filtration Rate [...] GFR. Performed By: #### 5 7021-8 #### [facility] CLIA [id number] [address] [place] [address] [place] Glucose [Mass/Vol] 104 mg/dL High 74-99 [facility] Comment on above: Order Comment: Anitha alex Type: BLOOD SPECIMEN Ordering Facility: [facility] Address: [address] [place] [address] Result Comment: The [place] [employer] (ADA) provides guidance for cutoff [...] Standards of Medical Care in Diabetes 2016, [place] [employer]. Diabetes Care. 2016.39(Suppl 1). Performed By: #### 5 7021-8 #### [facility] CLIA [id number] [address] [place] [address] [place] Potassium [Moles/Vol] 3.8 mmol/L Normal 3.7-5.1 [facility] Comment on above: Order Comment: Speci men Type: BLOOD SPECIMEN Ordering Facility: [facility] Address: [address] [place] [address] Performed By: #### 5 7021-8 #### [facility] CLIA [id number] [address] [place] [address] [place] Protein [Mass/Vol] 5.9 g/dL Low 6.3-8.0 [facility] Comment on above: Order Comment: Phyliciai men Type: BLOOD SPECIMEN Ordering Facility: [facility] Address: [address] [place] [address] Performed By: #### 5 7021-8 #### [facility] CLIA [id number] [address] [place] [address] [place] Sodium [Moles/Vol] 143 mmol/L Normal 136-144 [facility] Comment on above: Order Comment: Speci men Type: BLOOD SPECIMEN Ordering Facility: [facility] Address: [address] [place] [address] Performed By: #### 5 7021-8 #### [facility] CLIA [id number] [address] [place] [address] [place] Urea nitrogen [Mass/Vol] 18 mg/dL Normal 7-21 [facility] Comment on above: Order Comment: Speci men Type: BLOOD SPECIMEN Ordering Facility: [facility] Address: [address] [place] [address] Performed By: #### 5 7021-8 #### [facility] CLIA [id number] [address] [place] [address] [place] Magnesium SerPl-mCncon 08-29 Magnesium [Mass/Vol] 2.0 mg/dL Normal 1.7-2.3 [facility] Comment on above: Order Comment: Speci men Type: BLOOD SPECIMEN Ordering Facility: [facility] Address: [address] [place] [address] Performed By: #### 5 7021-8 #### [facility] CLIA [id number] [address] [place] [address] [place] Phosphate SerPl-mCncon 08-29 Phosphate [Mass/Vol] 3.8 mg/dL Normal 2.7-4.8 [facility] Comment on above: Order Comment: Speci men Type: BLOOD SPECIMEN Ordering Facility: [facility] Address: [address] [place] [address] Performed By: #### 5 7021-8 #### [facility] CLIA [id number] [address] [place] [address] [place] ALLIED HEALTHon 08-28-2024 ALLIED HEALTH HNO ID: [id number] Author: MARY KAY UMANZOR Chaplain Service: Process Group Author Type: Seasonal Package Handler Type: Allied Health Filed: 08/28/2024 16:39 Note Text: The patient was anointed. Normal [facility] CBC W Auto Differential pane l (Bld)on 08-28-2024 Basophils (Bld) [#/Vol] 10*3/uL Normal <0.11 [facility] Comment on above: Order Comment: Speci men Type: BLOOD SPECIMEN Ordering Facility: [facility] Address: [address] [place] [address] Performed By: #### 5 7021-8 #### [facility] CLIA [id number] [address] [place] [address] [place] Basophils/100 WBC (Bld) 0.1 % Normal [facility] Comment on above: Order Comment: Speci men Type: BLOOD SPECIMEN Ordering Facility: [facility] Address: [address] [place] [address] Performed By: #### 5 7021-8 #### [facility] CLIA [id number] [address] [place] [address] [place] Differential cell count method Nom (Bld) Auto Normal [facility] Comment on above: Order Comment: Speci men Type: BLOOD SPECIMEN Ordering Facility: [facility] Address: [address] [place] [address] Performed By: #### 5 7021-8 #### [facility] CLIA [id number] [address] [place] [address] [place] Eosinophils (Bld) [#/Vol] 10*3/uL Normal <0.46 [facility] Comment on above: Order Comment: Speci men Type: BLOOD SPECIMEN Ordering Facility: [facility] Address: [address] [place] [address] Performed By: #### 5 7021-8 #### [facility] CLIA [id number] [address] [place] [address] [place] Eosinophils/100 WBC (Bld) 0.0 % Normal [facility] Comment on above: Order Comment: Speci men Type: BLOOD SPECIMEN Ordering Facility: [facility] Address: [address] [place] [address] Performed By: #### 5 7021-8 #### [facility] CLIA [id number] [address] [place] [address] [place] Erythrocyte distribution width (RBC) [Ratio] 18.7 % High 11.5-15.0 [facility] Comment on above: Order Comment: Speci men Type: BLOOD SPECIMEN Ordering Facility: [facility] Address: [address] [place] [address] Performed By: #### 5 7021-8 #### [facility] CLIA [id number] [address] [place] [address] [place] Hematocrit (Bld) [Volume fraction] 26.6 % Low 36.0-46.0 [facility] Comment on above: Order Comment: Speci men Type: BLOOD SPECIMEN Ordering Facility: [facility] Address: [address] [place] [address] Performed By: #### 5 7021-8 #### [facility] CLIA [id number] [address] [place] [address] [place] Hemoglobin (Bld) [Mass/Vol] 9.1 g/dL Low 11.5-15.5 [facility] Comment on above: Order Comment: Speci men Type: BLOOD SPECIMEN Ordering Facility: [facility] Address: [address] [place] [address] Performed By: #### 5 7021-8 #### [facility] CLIA [id number] [address] [place] [address] [place] Immature granulocytes (Bld) [#/Vol] 0.07 10*3/uL Normal <0.10 [facility] Comment on above: Order Comment: Speci men Type: BLOOD SPECIMEN Ordering Facility: [facility] Address: [address] [place] [address] Performed By: #### 5 7021-8 #### [facility] CLIA [id number] [address] [place] [address] [place] Immature granulocytes/100 WBC (Bld) 0.9 % Normal [facility] Comment on above: Order Comment: Speci men Type: BLOOD SPECIMEN Ordering Facility: [facility] Address: [address] [place] [address] Performed By: #### 5 7021-8 #### [facility] CLIA [id number] [address] [place] [address] [place] Lymphocytes (Bld) [#/Vol] 0.74 10*3/uL Low 1.00-4.00 [facility] Comment on above: Order Comment: Speci men Type: BLOOD SPECIMEN Ordering Facility: [facility] Address: [address] [place] [address] Performed By: #### 5 7021-8 #### [facility] CLIA [id number] [address] [place] [address] [place] Lymphocytes/100 WBC (Bld) 9.8 % Normal [facility] Comment on above: Order Comment: Speci men Type: BLOOD SPECIMEN Ordering Facility: [facility] Address: [address] [place] [address] Performed By: #### 5 7021-8 #### [facility] CLIA [id number] [address] [place] [address] [place] MCH (RBC) [Entitic mass] 32.4 pg Normal 26.0-34.0 [facility] Comment on above: Order Comment: Speci men Type: BLOOD SPECIMEN Ordering Facility: [facility] Address: [address] [place] [address] Performed By: #### 5 7021-8 #### [facility] CLIA [id number] [address] [place] [address] [place] MCHC (RBC) [Mass/Vol] 34.2 g/dL Normal 30.5-36.0 [facility] Comment on above: Order Comment: Speci men Type: BLOOD SPECIMEN Ordering Facility: [facility] Address: [address] [place] [address] Performed By: #### 5 7021-8 #### [facility] CLIA [id number] [address] [place] [address] [place] MCV (RBC) [Entitic vol] 94.7 fL Normal 80.0-100.0 [facility] Comment on above: Order Comment: Speci men Type: BLOOD SPECIMEN Ordering Facility: [facility] Address: [address] [place] [address] Performed By: #### 5 7021-8 #### [facility] CLIA [id number] [address] [place] [address] [place] Monocytes (Bld) [#/Vol] 0.42 10*3/uL Normal <0.87 [facility] Comment on above: Order Comment: Speci men Type: BLOOD SPECIMEN Ordering Facility: [facility] Address: [address] [place] [address] Performed By: #### 5 7021-8 #### [facility] CLIA [id number] [address] [place] [address] [place] Monocytes/100 WBC (Bld) 5.6 % Normal [facility] Comment on above: Order Comment: Speci men Type: BLOOD SPECIMEN Ordering Facility: [facility] Address: [address] [place] [address] Performed By: #### 5 7021-8 #### [facility] CLIA [id number] [address] [place] [address] [place] Neutrophils (Bld) [#/Vol] 6.31 10*3/uL Normal 1.45-7.50 [facility] Comment on above: Order Comment: Speci men Type: BLOOD SPECIMEN Ordering Facility: [facility] Address: [address] [place] [address] Performed By: #### 5 7021-8 #### [facility] CLIA [id number] [address] [place] [address] [place] Neutrophils/100 WBC (Bld) 83.6 % Normal [facility] Comment on above: Order Comment: Speci men Type: BLOOD SPECIMEN Ordering Facility: [facility] Address: [address] [place] [address] Performed By: #### 5 7021-8 #### [facility] CLIA [id number] [address] [place] [address] [place] Nucleated RBC (Bld) [#/Vol] 10*3/uL Normal <0.01 [facility] Comment on above: Order Comment: Speci men Type: BLOOD SPECIMEN Ordering Facility: [facility] Address: [address] [place] [address] Performed By: #### 5 7021-8 #### [facility] CLIA [id number] [address] [place] [address] [place] Nucleated RBC/100 WBC (Bld) [Ratio] 0.0 /100 WBC Normal [facility] Comment on above: Order Comment: Speci men Type: BLOOD SPECIMEN Ordering Facility: [facility] Address: [address] [place] [address] Performed By: #### 5 7021-8 #### [facility] CLIA [id number] [address] [place] [address] [place] Platelet mean volume (Bld) [Entitic vol] 9.3 fL Normal 9.0-12.7 [facility] Comment on above: Order Comment: Speci men Type: BLOOD SPECIMEN Ordering Facility: [facility] Address: [address] [place] [address] Performed By: #### 5 7021-8 #### [facility] CLIA [id number] [address] [place] [address] [place] Platelets (Bld) [#/Vol] 222 10*3/uL Normal 150-400 [facility] Comment on above: Order Comment: Speci men Type: BLOOD SPECIMEN Ordering Facility: [facility] Address: [address] [place] [address] Performed By: #### 5 7021-8 #### [facility] CLIA [id number] [address] [place] [address] [place] RBC (Bld) [#/Vol] 2.81 10*6/uL Low 3.90-5.20 [facility] Comment on above: Order Comment: Speci men Type: BLOOD SPECIMEN Ordering Facility: [facility] Address: [address] [place] [address] Performed By: #### 5 7021-8 #### [facility] CLIA [id number] [address] [place], [place] [address] [place] WBC (Bld) [#/Vol] 7.55 10*3/uL Normal 3.70-11.00 [facility] Comment on above: Order Comment: Speci men Type: BLOOD SPECIMEN Ordering Facility: [facility] Address: [address] [place] [address] Performed By: #### 5 7021-8 #### [facility] CLIA [id number] [address] [place] [address] [place] Comprehensive metabolic 2000 panelon 08-28-2024 Albumin [Mass/Vol] 3.9 g/dL Normal 3.9-4.9 [facility] Comment on above: Order Comment: Speci men Type: BLOOD SPECIMEN Ordering Facility: [facility] Address: [address] [place] [address] Performed By: #### 2 4323-8, 10797-8, 2777-1 #### [facility] CLIA [id number] [address] [place] [address] [place] ALP [Catalytic activity/Vol] 90 U/L Normal 34-123 [facility] Comment on above: Order Comment: Speci men Type: BLOOD SPECIMEN Ordering Facility: [facility] Address: [address] [place] [address] Performed By: #### 2 4323-8, 60608-1, 2777-1 #### [facility] CLIA [id number] [address] [place], [place] [address] [place] ALT [Catalytic activity/Vol] 71 U/L High 7-38 [facility] Comment on above: Order Comment: Speci men Type: BLOOD SPECIMEN Ordering Facility: [facility] Address: [address] [place], [place] [address] Performed By: #### 2 4323-8, 80459-4, 2776-03 #### [facility] CLIA [id number] [address] [place], [place] [address] [place] Anion gap [Moles/Vol] 11 mmol/L Normal 8-15 [facility] Comment on above: Order Comment: Speci men Type: BLOOD SPECIMEN Ordering Facility: [facility] Address: [address] [place], [place] [address] Performed By: #### 2 4323-8, , 2776-03 #### [facility] CLIA [id number] [address] [place], [place] [address] [place] AST [Catalytic activity/Vol] 49 U/L High 13-35 [facility] Comment on above: Order Comment: Speci men Type: BLOOD SPECIMEN Ordering Facility: [facility] Address: [address] [place], [place] [address] Performed By: #### 2 4323-8, , 2776-03 #### [facility] CLIA [id number] [address] [place] [address] [place] Bilirubin [Mass/Vol] 0.5 mg/dL Normal 0.2-1.3 [facility] Comment on above: Order Comment: Speci men Type: BLOOD SPECIMEN Ordering Facility: [facility] Address: [address] [place], [place] [address] Performed By: #### 2 4323-8, , 2776-03 #### [facility] CLIA [id number] [address] [place], [place] [address] [place] Calcium [Mass/Vol] 9.5 mg/dL Normal 8.5-10.2 [facility] Comment on above: Order Comment: Speci men Type: BLOOD SPECIMEN Ordering Facility: [facility] Address: [address] [place], [place] [address] Performed By: #### 2 4323-8, 92323-5, 2776- #### [facility] CLIA [id number] [address] [place] [address] [place] Chloride [Moles/Vol] 106 mmol/L Normal 98-107 [facility] Comment on above: Order Comment: Speci men Type: BLOOD SPECIMEN Ordering Facility: [facility] Address: [address] [place] [address] Performed By: #### 2 4323-8, 63633-0, 2776-03 #### [facility] CLIA [id number] [address] [place] [address] [place] CO2 [Moles/Vol] 22 mmol/L Normal 22-30 [facility] Comment on above: Order Comment: Speci men Type: BLOOD SPECIMEN Ordering Facility: [facility] Address: [address] [place] [address] Performed By: #### 2 4323-8, , 2776-03 #### [facility] CLIA [id number] [address] [place] [address] [place] Creatinine [Mass/Vol] 1.10 mg/dL High 0.58-0.96 [facility] Comment on above: Order Comment: Speci men Type: BLOOD SPECIMEN Ordering Facility: [facility] Address: [address] [place] [address] Performed By: #### 2 4323-8, , 2776-03 #### [facility] CLIA [id number] [address] [place] [address] [place] Creatinine and Glomerular filtration rate.predicted panel (S/P/Bld) 60 mL/min/1.73m??? Normal >=60 [facility] Comment on above: Order Comment: Speci men Type: BLOOD SPECIMEN Ordering Facility: [facility] Address: [address] [place] [address] Result Comment: Latasha mated Glomerular Filtration Rate [...] actual GFR. Performed By: #### 2 4323-8, , 2776-03 #### [facility] CLIA [id number] [address] [place] [address] [place] Glucose [Mass/Vol] 144 mg/dL High 74-99 [facility] Comment on above: Order Comment: Anitha alex Type: BLOOD SPECIMEN Ordering Facility: [facility] Address: [address] [place] [address] Result Comment: The [place] [employer] (ADA) provides guidance for cutoff [...] Standards of Medical Care in Diabetes 2016, [place] [employer]. Diabetes Care. 2016.39(Suppl 1). Performed By: #### 2 4323-8, , 2776-03 #### [facility] CLIA [id number] [address] [place] [address] [place] Potassium [Moles/Vol] 3.4 mmol/L Low 3.7-5.1 [facility] Comment on above: Order Comment: Anitha alex Type: BLOOD SPECIMEN Ordering Facility: [facility] Address: [address] [place], [place] [address] Performed By: #### 2 4323-8, , 2776-03 #### [facility] CLIA [id number] [address] [place] [address] [place] Protein [Mass/Vol] 6.0 g/dL Low 6.3-8.0 [facility] Comment on above: Order Comment: Speci men Type: BLOOD SPECIMEN Ordering Facility: [facility] Address: [address] [place] [address] Performed By: #### 2 4323-8, , 2776-03 #### [facility] CLIA [id number] [address] [place], [place] [address] [place] Sodium [Moles/Vol] 139 mmol/L Normal 136-144 [facility] Comment on above: Order Comment: Speci men Type: BLOOD SPECIMEN Ordering Facility: [facility] Address: [address] [place] [address] Performed By: #### 2 4323-8, , 2776-03 #### [facility] CLIA [id number] [address] [place], [place] [address] [place] Urea nitrogen [Mass/Vol] 14 mg/dL Normal 7-21 [facility] Comment on above: Order Comment: Speci men Type: BLOOD SPECIMEN Ordering Facility: [facility] Address: [address] [place] [address] Performed By: #### 2 4323-8, , 2776-03 #### [facility] CLIA [id number] [address] [place] [address] [place] Magnesium SerPl-mCncon 08-28 Magnesium [Mass/Vol] 2.0 mg/dL Normal 1.7-2.3 [facility] Comment on above: Order Comment: Speci men Type: BLOOD SPECIMEN Ordering Facility: [facility] Address: [address] [place], [place] [address] Performed By: #### 2 4323-8, , 2776-03 #### [facility] CLIA [id number] [address] [place] [address] [place] NUTRITIONon 08-28-2024 NUTRITION HNO ID: [id number] Author: GERALDINE BENITO RD Service: Nutrition Therapy Author Type: Registered Dietitian Type: Nutrition Filed: 08/28/2024 16:21 Note Text: NUTRITION THERAPY INITIAL ASSESSMENT SERVICE DATE: 08/28/2024 SERVICE TIME: Start Time: 1051 Nutrition Assessment: Recommended Malnutrition Diagnosis: No Malnutrition Identified In the context of: Chronic Illness or Injury Care Plan: Continue current diet (regular diet - adjust per primary) Supplements: Impact AR (requested Impact AR supplementation. Will provide once a day for wound healing to breast) Refer to: Dairy Clerk to Follow Vitamins and Minerals: Multivitamin with [...] and new finding of brain metastases at [facility]. Transferred to [facility] for brain MRI and is seeking [...] noted via LDA avatar. Plan to send Danube AR once daily w/ lunch for support [...] Weight Type: Current weight Estimated kilocalorie needs: 1873-7316 Calorie Calculation Method: 20-25 kcals/kg Estimated protein [...] VANILLA Supplement 1 Frequency LUNCH 08/28/24 1108 08/27/24 [...] August 28, 2024 TIME: 4:10 PM Normal [facility] Phosphate SerPl-mCncon 08-28 Phosphate [Mass/Vol] 2.4 mg/dL Low 2.7-4.8 [facility] Comment on above: Order Comment: Speci men Type: BLOOD SPECIMENOrdering Facility: [facility] Address: [address] [place] [address] Performed By: #### 2 4323-8, 11452-5, 2777-1 ####[facility] [id number] [address] [facility] ALLIED HEALTHon 08-27-2024 ALLIED HEALTH HNO ID: [id number] Author: EMILIANA ALVAREZ, Student Service: Spiritual Care Author Type: Student Type: Allied Health Filed: 08/27/2024 12:09 Note Text: SPIRITUAL CARE ASSESSMENT SERVICE DATE: 08/27/2024 SERVICE TIME: 11:10 Visit with: Patient Length of visit (minutes): 30 Roman Catholic / Spirituality: Caodaism Reason: Initial visit ASSESSMENT Emotional Disposition: Afraid, [...] 27, 2024 TIME: 12:01 PM PAGER/CONTACT #: [phone] Normal [facility] CBC W Auto Differential pane l (Bld)on 08-27-2024 Basophils (Bld) [#/Vol] 0.05 10*3/uL Normal <0.11 [facility] Comment on above: Order Comment: Speci men Type: BLOOD SPECIMEN Ordering Facility: [facility] Address: [address] [place] [address] Performed By: #### 2 777-1, , #### [facility] CLIA [id number] [address] [place] [address] [place] Basophils/100 WBC (Bld) 1.3 % Normal [facility] Comment on above: Order Comment: Speci men Type: BLOOD SPECIMEN Ordering Facility: [facility] Address: [address] [place] [address] Performed By: #### 2 777-1, , #### [facility] CLIA [id number] [address] [place] [address] [place] Differential cell count method Nom (Bld) Auto Normal [facility] Comment on above: Order Comment: Speci men Type: BLOOD SPECIMEN Ordering Facility: [facility] Address: [address] [place] [address] Performed By: #### 2 777-1, , #### [facility] CLIA [id number] [address] [place] [address] [place] Eosinophils (Bld) [#/Vol] 0.27 10*3/uL Normal <0.46 [facility] Comment on above: Order Comment: Speci men Type: BLOOD SPECIMEN Ordering Facility: [facility] Address: [address] [place] [address] Performed By: #### 2 777-1, , #### [facility] CLIA [id number] [address] [place] [address] [place] Eosinophils/100 WBC (Bld) 6.9 % Normal [facility] Comment on above: Order Comment: Speci men Type: BLOOD SPECIMEN Ordering Facility: [facility] Address: [address] [place] [address] Performed By: #### 2 777-1, , #### [facility] CLIA [id number] [address] [place] [address] [place] Erythrocyte distribution width (RBC) [Ratio] 18.7 % High 11.5-15.0 [facility] Comment on above: Order Comment: Speci men Type: BLOOD SPECIMEN Ordering Facility: [facility] Address: [address] [place] [address] Performed By: #### 2 777-1, , #### [facility] CLIA [id number] [address] [place] [address] [place] Hematocrit (Bld) [Volume fraction] 27.3 % Low 36.0-46.0 [facility] Comment on above: Order Comment: Speci men Type: BLOOD SPECIMEN Ordering Facility: [facility] Address: [address] [place], [place] [address] Performed By: #### 2 777-1, , #### [facility] CLIA [id number] [address] [place], [place] [address] [place] Hemoglobin (Bld) [Mass/Vol] 9.4 g/dL Low 11.5-15.5 [facility] Comment on above: Order Comment: Speci men Type: BLOOD SPECIMEN Ordering Facility: [facility] Address: [address] [place] [address] Performed By: #### 2 777-1, 59362-6, #### [facility] CLIA [id number] [address] [place] [address] [place] Immature granulocytes (Bld) [#/Vol] 0.03 10*3/uL Normal <0.10 [facility] Comment on above: Order Comment: Speci men Type: BLOOD SPECIMEN Ordering Facility: [facility] Address: [address] [place] [address] Performed By: #### 2 777-1, , #### [facility] CLIA [id number] [address] [place] [address] [place] Immature granulocytes/100 WBC (Bld) 0.8 % Normal [facility] Comment on above: Order Comment: Speci men Type: BLOOD SPECIMEN Ordering Facility: [facility] Address: [address] [place] [address] Performed By: #### 2 777-1, , #### [facility] CLIA [id number] [address] [place] [address] [place] Lymphocytes (Bld) [#/Vol] 1.06 10*3/uL Normal 1.00-4.00 [facility] Comment on above: Order Comment: Speci men Type: BLOOD SPECIMEN Ordering Facility: [facility] Address: [address] [place], [place] [address] Performed By: #### 2 777-1, , #### [facility] CLIA [id number] [address] [place], [place] [address] [place] Lymphocytes/100 WBC (Bld) 26.9 % Normal [facility] Comment on above: Order Comment: Speci men Type: BLOOD SPECIMEN Ordering Facility: [facility] Address: [address] [place] [address] Performed By: #### 2 777-1, 71026-2, #### [facility] CLIA [id number] [address] [place] [address] [place] MCH (RBC) [Entitic mass] 32.6 pg Normal 26.0-34.0 [facility] Comment on above: Order Comment: Speci men Type: BLOOD SPECIMEN Ordering Facility: [facility] Address: [address] [place] [address] Performed By: #### 2 777-1, 17519-9, #### [facility] CLIA [id number] [address] [place] [address] [place] MCHC (RBC) [Mass/Vol] 34.4 g/dL Normal 30.5-36.0 [facility] Comment on above: Order Comment: Speci men Type: BLOOD SPECIMEN Ordering Facility: [facility] Address: [address] [place] [address] Performed By: #### 2 777-1, , #### [facility] CLIA [id number] [address] [place] [address] [place] MCV (RBC) [Entitic vol] 94.8 fL Normal 80.0-100.0 [facility] Comment on above: Order Comment: Speci men Type: BLOOD SPECIMEN Ordering Facility: [facility] Address: [address] [place] [address] Performed By: #### 2 777-1, 55253-8, #### [facility] CLIA [id number] [address] [place] [address] [place] Monocytes (Bld) [#/Vol] 0.42 10*3/uL Normal <0.87 [facility] Comment on above: Order Comment: Speci men Type: BLOOD SPECIMEN Ordering Facility: [facility] Address: [address] [place] [address] Performed By: #### 2 777-1, 51279-2, #### [facility] CLIA [id number] [address] [place] [address] [place] Monocytes/100 WBC (Bld) 10.7 % Normal [facility] Comment on above: Order Comment: Speci men Type: BLOOD SPECIMEN Ordering Facility: [facility] Address: [address] [place] [address] Performed By: #### 2 777-1, 07608-6, #### [facility] CLIA [id number] [address] [place] [address] [place] Neutrophils (Bld) [#/Vol] 2.11 10*3/uL Normal 1.45-7.50 [facility] Comment on above: Order Comment: Speci men Type: BLOOD SPECIMEN Ordering Facility: [facility] Address: [address] [place] [address] Performed By: #### 2 777-1, , #### [facility] CLIA [id number] [address] [place] [address] [place] Neutrophils/100 WBC (Bld) 53.4 % Normal [facility] Comment on above: Order Comment: Speci men Type: BLOOD SPECIMEN Ordering Facility: [facility] Address: [address] [place] [address] Performed By: #### 2 777-1, 93119-0, #### [facility] CLIA [id number] [address] [place] [address] [place] Nucleated RBC (Bld) [#/Vol] 10*3/uL Normal <0.01 [facility] Comment on above: Order Comment: Speci men Type: BLOOD SPECIMEN Ordering Facility: [facility] Address: [address] [place] [address] Performed By: #### 2 777-1, 53124-9, #### [facility] CLIA [id number] [address] [place], [place] [address] [place] Nucleated RBC/100 WBC (Bld) [Ratio] 0.0 /100 WBC Normal [facility] Comment on above: Order Comment: Speci men Type: BLOOD SPECIMEN Ordering Facility: [facility] Address: [address] [place], [place] [address] Performed By: #### 2 777-1, 32079-4, #### [facility] CLIA [id number] [address] [place] [address] [place] Platelet mean volume (Bld) [Entitic vol] 9.0 fL Normal 9.0-12.7 [facility] Comment on above: Order Comment: Speci men Type: BLOOD SPECIMEN Ordering Facility: [facility] Address: [address] [place] [address] Performed By: #### 2 777-1, 50802-4, #### [facility] CLIA [id number] [address] [place] [address] [place] Platelets (Bld) [#/Vol] 224 10*3/uL Normal 150-400 [facility] Comment on above: Order Comment: Speci men Type: BLOOD SPECIMEN Ordering Facility: [facility] Address: [address] [place], [place] [address] Performed By: #### 2 777-1, 37853-2, #### [facility] CLIA [id number] [address] [place], [place] [address] [place] RBC (Bld) [#/Vol] 2.88 10*6/uL Low 3.90-5.20 [facility] Comment on above: Order Comment: Speci men Type: BLOOD SPECIMEN Ordering Facility: [facility] Address: [address] [place], [place] [address] Performed By: #### 2 777-1, 97655-2, 44909-6 #### [facility] CLIA [id number] [address] [place] [address] [place] WBC (Bld) [#/Vol] 3.94 10*3/uL Normal 3.70-11.00 [facility] Comment on above: Order Comment: Speci men Type: BLOOD SPECIMEN Ordering Facility: [facility] Address: [address] [place] [address] Performed By: #### 2 777-1, 46911-2, 49385-0 #### [facility] CLIA [id number] [address] [place], [place] [address] [facility] CONSULTon 08-27-2024 CONSULT HNO ID: [id number] Author: MARISELA CISNEROS MD Service: Radiation Oncology Author Type: Physician Type: Consults Filed: 08/27/2024 13:14 Note Text: [facility] INITIAL CONSULT GENERAL Please contact Dr. Marisela Cisneros (staff) M-F [phone] for questions regarding RT during this patient's admission; otherwise contact the on-call resident (Pager [phone]) after hours. SERVICE DATE: 08/27/2024 SERVICE TIME: [...] diagnosis s/p bilateral mastectomy and right ALND, bnA2bA0 disease and subsequent adjuvant RT completed ~Jan 2024. Subjective CHIEF COMPLAINT: slurred speech, right arm weakness. HPI: Ms. Flannery is a 53 year old woman with history of right breast cancer (ER-weakly positive, NC-negative, HER2 nonamplified) diagnosed and managed at [facility]. She underwent neoadjuvant chemoimmunotherapy followed by bilateral mastectomy with right axillary dissection and tissue solar power installer reconstruction 10/2023, noted to have ypT1c N2 disease. Subsequently received adjuvant right chest wall RT and anastrozole around 01/2024 (records not available on my review). Course has been complicated by multiple wound infections requiring debridement. PET/CT 06/12/24 showed a 2.5 cm mass in the posterior liver which was biopsied 07/11/24 showing oligometastatic disease. She has transitioned care to [facility] to unify her care; otherwise seen [...] is pending; primary team believes her tissue solar power installer will be removed 08/30. She is tearful [...] DAILY imipenem-cilas (more content not included)... Normal [facility] Comprehensive metabolic 2000 panelon 08-27-2024 Albumin [Mass/Vol] 3.9 g/dL Normal 3.9-4.9 [facility] Comment on above: Order Comment: Speci men Type: BLOOD SPECIMEN Ordering Facility: [facility] Address: [address] [place] [address] [place] [address] Performed By: #### 2 777-1, 29470-1, #### [facility] CLIA [id number] [address] [place], [place] [address] [place] ALP [Catalytic activity/Vol] 101 U/L Normal 34-123 [facility] Comment on above: Order Comment: Speci men Type: BLOOD SPECIMEN Ordering Facility: [facility] Address: [address] [place] [address] Performed By: #### 2 777-1, 98539-2, #### [facility] CLIA [id number] [address] [place], [place] [address] [place] ALT [Catalytic activity/Vol] 91 U/L High 7-38 [facility] Comment on above: Order Comment: Speci men Type: BLOOD SPECIMEN Ordering Facility: [facility] Address: [address] [place] [address] Performed By: #### 2 777-1, , #### [facility] CLIA [id number] [address] [place] [address] [place] Anion gap [Moles/Vol] 10 mmol/L Normal 8-15 [facility] Comment on above: Order Comment: Speci men Type: BLOOD SPECIMEN Ordering Facility: [facility] Address: [address] [place] [address] Performed By: #### 2 777-1, , #### [facility] CLIA [id number] [address] [place] [address] [place] AST [Catalytic activity/Vol] 74 U/L High 13-35 [facility] Comment on above: Order Comment: Speci men Type: BLOOD SPECIMEN Ordering Facility: [facility] Address: [address] [place], [place] [address] Performed By: #### 2 777-1, 98792-8, #### [facility] CLIA [id number] [address] [place], [place] [address] [place] Bilirubin [Mass/Vol] 0.5 mg/dL Normal 0.2-1.3 [facility] Comment on above: Order Comment: Speci men Type: BLOOD SPECIMEN Ordering Facility: [facility] Address: [address] [place] [address] Performed By: #### 2 777-1, 81890-5, #### [facility] CLIA [id number] [address] [place], [place] [address] [place] Calcium [Mass/Vol] 9.5 mg/dL Normal 8.5-10.2 [facility] Comment on above: Order Comment: Speci men Type: BLOOD SPECIMEN Ordering Facility: [facility] Address: [address] [place] [address] Performed By: #### 2 777-1, , #### [facility] CLIA [id number] [address] [place] [address] [place] Chloride [Moles/Vol] 106 mmol/L Normal 98-107 [facility] Comment on above: Order Comment: Speci men Type: BLOOD SPECIMEN Ordering Facility: [facility] Address: [address] [place] [address] Performed By: #### 2 777-1, , #### [facility] CLIA [id number] [address] [place], [place] [address] [place] CO2 [Moles/Vol] 24 mmol/L Normal 22-30 [facility] Comment on above: Order Comment: Speci men Type: BLOOD SPECIMEN Ordering Facility: [facility] Address: [address] [place] [address] Performed By: #### 2 777-1, , #### [facility] CLIA [id number] [address] [place] [address] [place] Creatinine [Mass/Vol] 1.15 mg/dL High 0.58-0.96 [facility] Comment on above: Order Comment: Anitha alex Type: BLOOD SPECIMEN Ordering Facility: [facility] Address: [address] [place] [address] Performed By: #### 2 777-1, 19893-0, #### [facility] CLIA [id number] [address] [place] [address] [place] Creatinine and Glomerular filtration rate.predicted panel (S/P/Bld) 57 mL/min/1.73m??? Low >=60 [facility] Comment on above: Order Comment: Anitha alex Type: BLOOD SPECIMEN Ordering Facility: [facility] Address: [address] [place] [address] Result Comment: Latasha mated Glomerular Filtration Rate [...] Performed By: #### 2 777-1, , #### [facility] CLIA [id number] [address] [place] [address] [place] Glucose [Mass/Vol] 96 mg/dL Normal 74-99 [facility] Comment on above: Order Comment: Anitha alex Type: BLOOD SPECIMEN Ordering Facility: [facility] Address: [address] [place] [address] Result Comment: The [place] [employer] (ADA) provides guidance for cutoff [...] Standards of Medical Care in Diabetes 2016, [place] [employer]. Diabetes Care. 2016.39(Suppl 1). Performed By: #### 2 777-1, 33450-3, #### [facility] CLIA [id number] [address] [place] [address] [place] Potassium [Moles/Vol] 3.5 mmol/L Low 3.7-5.1 [facility] Comment on above: Order Comment: Speci men Type: BLOOD SPECIMEN Ordering Facility: [facility] Address: [address] [place] [address] Performed By: #### 2 777-1, 35627-2, #### [facility] CLIA [id number] [address] [place] [address] [place] Protein [Mass/Vol] 5.8 g/dL Low 6.3-8.0 [facility] Comment on above: Order Comment: Speci men Type: BLOOD SPECIMEN Ordering Facility: [facility] Address: [address] [place] [address] Performed By: #### 2 777-1, , #### [facility] CLIA [id number] [address] [place] [address] [place] Sodium [Moles/Vol] 140 mmol/L Normal 136-144 [facility] Comment on above: Order Comment: Speci men Type: BLOOD SPECIMEN Ordering Facility: [facility] Address: [address] [place] [address] Performed By: #### 2 777-1, , #### [facility] CLIA [id number] [address] [place] [address] [place] Urea nitrogen [Mass/Vol] 13 mg/dL Normal 7-21 [facility] Comment on above: Order Comment: Speci men Type: BLOOD SPECIMEN Ordering Facility: [facility] Address: [address] [place] [address] Performed By: #### 2 777-1, 81470-6, #### [facility] CLIA [id number] [address] [place] [address] [place] Magnesium SerPl-mCncon 08-27 Magnesium [Mass/Vol] 2.0 mg/dL Normal 1.7-2.3 [facility] Comment on above: Order Comment: Speci men Type: BLOOD SPECIMEN Ordering Facility: [facility] Address: [address] [place] [address] Performed By: #### 2 777-1, 85868-7, #### [facility] CLIA [id number] [address] [place] [address] [place] Phosphate SerPl-mCncon 08-27 Phosphate [Mass/Vol] 3.1 mg/dL Normal 2.7-4.8 [facility] Comment on above: Order Comment: Speci men Type: BLOOD SPECIMEN Ordering Facility: [facility] Address: [address] [place] [address] Performed By: #### 2 777-1, 03911-7, #### [facility] CLIA [id number] [address] [place] [address] [place] XR CHEST 1V [...] limits for portable projection. Other: Soft tissue solar power installer is identified in the RIGHT breast with adjacent surgical clips. There is scoliosis of the thoracolumbar spine. IMPRESSION: See result Conventional Machinist: CARLOS Transcribe Date/Time: Aug 27 2024 9:51A Dictated by : HAN HARRINGTON MD This examination was interpreted and the report reviewed and electronically signed by: HAN HARRINGTON MD on Aug 27 2024 9:51AM EST [id number] Normal [facility] Amikacin Trough SerPl-mCncon 08-26-2024 Amikacin trough [Mass/Vol] <0.8 Low 5.0-8.0 [facility] Comment on above: Order Comment: Specjenna alex Type: BLOOD SPECIMEN Ordering Facility: [facility] Address: [address] [place] [address] Result Comment: Refe rence ranges and high/low indicator flags are provided as general guidelines only. The treating physician must determine appropriate target levels/dosing based on the specific clinical situation. Result rechecked. Performed By: #### 2 777-1, 51594-0, 85290-6 #### [facility] CLIA [id number] [address] [place] [address] [place] CBC W Auto Differential pane l (Bld)on 08-26-2024 Basophils (Bld) [#/Vol] 0.06 10*3/uL Normal <0.11 [facility] Comment on above: Order Comment: Anitha alex Type: BLOOD SPECIMEN Ordering Facility: [facility] Address: [address] [place] [address] Performed By: #### 5 7021-8 #### [facility] CLIA [id number] [address] [place] [address] [place] Basophils/100 WBC (Bld) 1.4 % Normal [facility] Comment on above: Order Comment: Speci men Type: BLOOD SPECIMEN Ordering Facility: [facility] Address: [address] [place] [address] Performed By: #### 5 7021-8 #### [facility] CLIA [id number] [address] [place] [address] [place] Differential cell count method Nom (Bld) Auto Normal [facility] Comment on above: Order Comment: Speci men Type: BLOOD SPECIMEN Ordering Facility: [facility] Address: [address] [place] [address] Performed By: #### 5 7021-8 #### [facility] CLIA [id number] [address] [place] [address] [place] Eosinophils (Bld) [#/Vol] 0.32 10*3/uL Normal <0.46 [facility] Comment on above: Order Comment: Speci men Type: BLOOD SPECIMEN Ordering Facility: [facility] Address: [address] [place] [address] Performed By: #### 5 7021-8 #### [facility] CLIA [id number] [address] [place] [address] [place] Eosinophils/100 WBC (Bld) 7.5 % Normal [facility] Comment on above: Order Comment: Speci men Type: BLOOD SPECIMEN Ordering Facility: [facility] Address: [address] [place] [address] Performed By: #### 5 7021-8 #### [facility] CLIA [id number] [address] [place] [address] [place] Erythrocyte distribution width (RBC) [Ratio] 18.7 % High 11.5-15.0 [facility] Comment on above: Order Comment: Speci men Type: BLOOD SPECIMEN Ordering Facility: [facility] Address: [address] [place] [address] Performed By: #### 5 7021-8 #### [facility] CLIA [id number] [address] [place] [address] [place] Hematocrit (Bld) [Volume fraction] 29.0 % Low 36.0-46.0 [facility] Comment on above: Order Comment: Speci men Type: BLOOD SPECIMEN Ordering Facility: [facility] Address: [address] [place] [address] Performed By: #### 5 7021-8 #### [facility] CLIA [id number] [address] [place] [address] [place] Hemoglobin (Bld) [Mass/Vol] 10.0 g/dL Low 11.5-15.5 [facility] Comment on above: Order Comment: Speci men Type: BLOOD SPECIMEN Ordering Facility: [facility] Address: [address] [place] [address] Performed By: #### 5 7021-8 #### [facility] CLIA [id number] [address] [place] [address] [place] Immature granulocytes (Bld) [#/Vol] 0.03 10*3/uL Normal <0.10 [facility] Comment on above: Order Comment: Speci men Type: BLOOD SPECIMEN Ordering Facility: [facility] Address: [address] [place] [address] Performed By: #### 5 7021-8 #### [facility] CLIA [id number] [address] [place] [address] [place] Immature granulocytes/100 WBC (Bld) 0.7 % Normal [facility] Comment on above: Order Comment: Speci men Type: BLOOD SPECIMEN Ordering Facility: [facility] Address: [address] [place] [address] Performed By: #### 5 7021-8 #### [facility] CLIA [id number] [address] [place] [address] [place] Lymphocytes (Bld) [#/Vol] 0.89 10*3/uL Low 1.00-4.00 [facility] Comment on above: Order Comment: Speci men Type: BLOOD SPECIMEN Ordering Facility: [facility] Address: [address] [place] [address] Performed By: #### 5 7021-8 #### [facility] CLIA [id number] [address] [place] [address] [place] Lymphocytes/100 WBC (Bld) 20.8 % Normal [facility] Comment on above: Order Comment: Speci men Type: BLOOD SPECIMEN Ordering Facility: [facility] Address: [address] [place] [address] Performed By: #### 5 7021-8 #### [facility] CLIA [id number] [address] [place] [address] [place] MCH (RBC) [Entitic mass] 32.7 pg Normal 26.0-34.0 [facility] Comment on above: Order Comment: Speci men Type: BLOOD SPECIMEN Ordering Facility: [facility] Address: [address] [place] [address] Performed By: #### 5 7021-8 #### [facility] CLIA [id number] [address] [place] [address] [place] MCHC (RBC) [Mass/Vol] 34.5 g/dL Normal 30.5-36.0 [facility] Comment on above: Order Comment: Speci men Type: BLOOD SPECIMEN Ordering Facility: [facility] Address: [address] [place] [address] Performed By: #### 5 7021-8 #### [facility] CLIA [id number] [address] [place] [address] [place] MCV (RBC) [Entitic vol] 94.8 fL Normal 80.0-100.0 [facility] Comment on above: Order Comment: Speci men Type: BLOOD SPECIMEN Ordering Facility: [facility] Address: [address] [place] [address] Performed By: #### 5 7021-8 #### [facility] CLIA [id number] [address] [place] [address] [place] Monocytes (Bld) [#/Vol] 0.49 10*3/uL Normal <0.87 [facility] Comment on above: Order Comment: Speci men Type: BLOOD SPECIMEN Ordering Facility: [facility] Address: [address] [place] [address] Performed By: #### 5 7021-8 #### [facility] CLIA [id number] [address] [place] [address] [place] Monocytes/100 WBC (Bld) 11.4 % Normal [facility] Comment on above: Order Comment: Speci men Type: BLOOD SPECIMEN Ordering Facility: [facility] Address: [address] [place] [address] Performed By: #### 5 7021-8 #### [facility] CLIA [id number] [address] [place] [address] [place] Neutrophils (Bld) [#/Vol] 2.49 10*3/uL Normal 1.45-7.50 [facility] Comment on above: Order Comment: Speci men Type: BLOOD SPECIMEN Ordering Facility: [facility] Address: [address] [place] [address] Performed By: #### 5 7021-8 #### [facility] CLIA [id number] [address] [place] [address] [place] Neutrophils/100 WBC (Bld) 58.2 % Normal [facility] Comment on above: Order Comment: Speci men Type: BLOOD SPECIMEN Ordering Facility: [facility] Address: [address] [place] [address] Performed By: #### 5 7021-8 #### [facility] CLIA [id number] [address] [place] [address] [place] Nucleated RBC (Bld) [#/Vol] 10*3/uL Normal <0.01 [facility] Comment on above: Order Comment: Speci men Type: BLOOD SPECIMEN Ordering Facility: [facility] Address: [address] [place] [address] Performed By: #### 5 7021-8 #### [facility] CLIA [id number] [address] [place] [address] [place] Nucleated RBC/100 WBC (Bld) [Ratio] 0.0 /100 WBC Normal [facility] Comment on above: Order Comment: Speci men Type: BLOOD SPECIMEN Ordering Facility: [facility] Address: [address] [place] [address] Performed By: #### 5 7021-8 #### [facility] CLIA [id number] [address] [place] [address] [place] Platelet mean volume (Bld) [Entitic vol] 9.0 fL Normal 9.0-12.7 [facility] Comment on above: Order Comment: Speci men Type: BLOOD SPECIMEN Ordering Facility: [facility] Address: [address] [place] [address] Performed By: #### 5 7021-8 #### [facility] CLIA [id number] [address] [place] [address] [place] Platelets (Bld) [#/Vol] 246 10*3/uL Normal 150-400 [facility] Comment on above: Order Comment: Speci men Type: BLOOD SPECIMEN Ordering Facility: [facility] Address: [address] [place] [address] Performed By: #### 5 7021-8 #### [facility] CLIA [id number] [address] [place] [address] [place] [place] RBC (Bld) [#/Vol] 3.06 10*6/uL Low 3.90-5.20 [facility] Comment on above: Order Comment: Speci men Type: BLOOD SPECIMEN Ordering Facility: [facility] Address: [address] [place] [address] Performed By: #### 5 7021-8 #### [facility] CLIA [id number] [address] [place] [address] [place] WBC (Bld) [#/Vol] 4.28 10*3/uL Normal 3.70-11.00 [facility] Comment on above: Order Comment: Speci men Type: BLOOD SPECIMEN Ordering Facility: [facility] Address: [address] [place] [address] Performed By: #### 5 7021-8 #### [facility] CLIA [id number] [address] [place] [address] [place] CONSULTon 08-26-2024 CONSULT HNO ID: [id number] Author: KAYLEIGH SINGH MD Service: Neurosurgery Author [...] liver) s/p chemoradiation, s/p right breast tissue solar power installer placement (not MRI compatible), currently on Xeloda, presenting to [facility] ED on 08/25 with slurred speech and [...] word slurring. Initial symptoms prompted evaluation at [facility] which led to current findings. Denies recent [...] suspected due (more content not included)... Normal [facility] CONSULT HNO ID: [id number] Author: PRECIOUS [place] MD Service: Plastic Surgery Author Type: Resident Type: Consults Filed: 08/29/2024 08:20 Note Text: Attestation signed by Precious [place] MD at 08/29/2024 8:20 AM Plan for OR for solar power installer removal Thursday. PLASTIC SURGERY CONSULTATION SERVICE DATE: 08/26/2024 SERVICE TIME: 4:30 PM Reason for Consultation: MRI incompatible R breast TE in setting of metastatic breast cancer workup Requesting Physician: Genna Sahu DO (Oncology) Subjective HPI: Ms. Flannery is a 53 year old female a history of right breast cancer (ER+, NC?, HER2?) treated with neoadjuvant chemotherapy and bilateral mastectomy on 10/28/2023, followed by bilateral tissue solar power installer placement, hx of DVT in the last [...] breast TE. Existing Right Sientra AlloX2 tissue solar power installer is not MRI safe, precluding imaging. She denies pain, drainage, fevers, or other signs of Right breast infection. She is aware and agreeable to surgical explantation to facilitate her cancer staging and treatment. 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 [facility] Right breast tissue solar power installer: Sientra AlloX2 14?12?cm, 480-575?cc, textured, integrated port Implant date: 10/28/2023 (Dr. Jenny Gross, [place], [place]) Not MRI compatible PAST MEDICAL HISTORY [...] Facility-Administered Medicat (more content not included)... 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 Treated by ID (Dr Noguera in [place]) with Amikacin 750 mg MWF, Imipenem 1 [...] M. Abscessus infection. Recent debridement 08/13 at [place] with culture positive for Pseudomonas (on levaquin x 10 days, 4 days remaining of her course). Anaerobic cx negative. Called [facility] and does not seem there is an AFB culture collected from the 08/12 debridement. However the 07/27 debridement did have a culture sent for AFB to [facility] (below) Patient has been afebrile since admission. Feeling alright but concerned about brain mass. Wound examined when plastic surgery at bedside- tentative plan to remove R breast tissue solar power installer so that MRI brain can be completed [...] COVID-19 original vaccine, age 12+ yr, monovalent ([employer] - PURPLE TOP) 11/15/2020 COVID-19 vaccine, unspecified [...] Vancomycin Othe (more content not included)... Normal [facility] CT BRAIN WO/W IVCONon 2024 CT BRAIN WO/W IVCON * * *Final Report* * * DATE OF EXAM: Aug 26 2024 9:58PM [facility] - CT BRAIN WO/W IVCON / [...] with vasogenic edema and local mass effect. Conventional Machinist: CARLOS Transcribe Date/Time: Aug 26 2024 10:00P Dictated by : GEORGIANA CARMICHAEL MD This examination was interpreted and the report reviewed and electronically signed by: GEORGIANA CARMICHAEL MD on Aug 26 2024 10:02PM EST [id number] Normal [facility] metabolic 2000 panelon 08-26-2024 Albumin [Mass/Vol] 4.1 g/dL Normal 3.9-4.9 [facility] Comment on above: Order Comment: Speci men Type: BLOOD SPECIMEN Ordering Facility: [facility] Address: [address] [place] [address] Performed By: #### 5 7021-8 #### [facility] CLIA [id number] [address] [place] [address] [place] ALP [Catalytic activity/Vol] 110 U/L Normal 34-123 [facility] Comment on above: Order Comment: Speci men Type: BLOOD SPECIMEN Ordering Facility: [facility] Address: [address] [place] [address] Performed By: #### 5 7021-8 #### [facility] CLIA [id number] [address] [place] [address] [place] ALT [Catalytic activity/Vol] 106 U/L High 7-38 [facility] Comment on above: Order Comment: Speci men Type: BLOOD SPECIMEN Ordering Facility: [facility] Address: [address] [place] [address] Performed By: #### 5 7021-8 #### [facility] CLIA [id number] [address] [place] [address] [place] Anion gap [Moles/Vol] 13 mmol/L Normal 8-15 [facility] Comment on above: Order Comment: Speci men Type: BLOOD SPECIMEN Ordering Facility: [facility] Address: [address] [place] [address] Performed By: #### 5 7021-8 #### [facility] CLIA [id number] [address] [place] [address] [place] AST [Catalytic activity/Vol] 94 U/L High 13-35 [facility] Comment on above: Order Comment: Speci men Type: BLOOD SPECIMEN Ordering Facility: [facility] Address: [address] [place] [address] Performed By: #### 5 7021-8 #### [facility] CLIA [id number] [address] [place] [address] [place] Bilirubin [Mass/Vol] 0.6 mg/dL Normal 0.2-1.3 [facility] Comment on above: Order Comment: Speci men Type: BLOOD SPECIMEN Ordering Facility: [facility] Address: [address] [place] [address] Performed By: #### 5 7021-8 #### [facility] CLIA [id number] [address] [place] [address] [place] Calcium [Mass/Vol] 9.6 mg/dL Normal 8.5-10.2 [facility] Comment on above: Order Comment: Speci men Type: BLOOD SPECIMEN Ordering Facility: [facility] Address: [address] [place] [address] Performed By: #### 5 7021-8 #### [facility] CLIA [id number] [address] [place] [address] [place] Chloride [Moles/Vol] 106 mmol/L Normal 98-107 [facility] Comment on above: Order Comment: Speci men Type: BLOOD SPECIMEN Ordering Facility: [facility] Address: [address] [place] [address] Performed By: #### 5 7021-8 #### [facility] CLIA [id number] [address] [place], [place] [address] [place] CO2 [Moles/Vol] 22 mmol/L Normal 22-30 [facility] Comment on above: Order Comment: Speci men Type: BLOOD SPECIMEN Ordering Facility: [facility] Address: [address] [place] [address] Performed By: #### 5 7021-8 #### [facility] CLIA [id number] [address] [place] [address] [place] Creatinine [Mass/Vol] 1.24 mg/dL High 0.58-0.96 [facility] Comment on above: Order Comment: Anitha alex Type: BLOOD SPECIMEN Ordering Facility: [facility] Address: [address] [place] [address] Performed By: #### 5 7021-8 #### [facility] CLIA [id number] [address] [place] [address] Creatinine and Glomerular filtration rate.predicted panel (S/P/Bld) 52 mL/min/1.73m??? Low >=60 [facility] Comment on above: Order Comment: Anitha alex Type: BLOOD SPECIMEN Ordering Facility: [facility] Address: [address] [place] [address] Result Comment: Latasha mated Glomerular Filtration Rate [...] GFR. Performed By: #### 5 7021-8 #### [facility] CLIA [id number] [address] [place] [address] [place] Glucose [Mass/Vol] 83 mg/dL Normal 74-99 [facility] Comment on above: Order Comment: Anitha alex Type: BLOOD SPECIMEN Ordering Facility: [facility] Address: [address] [place] [address] Result Comment: The [place] Diabetes Association (ADA) provides guidance for cutoff [...] Standards of Medical Care in Diabetes 2016, [place] [employer] Association. Diabetes Care. 2016.39(Suppl 1). Performed By: #### 5 7021-8 #### [facility] CLIA [id number] [address] [place], [place] [address] [place] Potassium [Moles/Vol] 3.9 mmol/L Normal 3.7-5.1 [facility] Comment on above: Order Comment: Speci men Type: BLOOD SPECIMEN Ordering Facility: [facility] Address: [address] [place] [address] Performed By: #### 5 7021-8 #### [facility] CLIA [id number] [address] [place] [address] [place] Protein [Mass/Vol] 6.1 g/dL Low 6.3-8.0 [facility] Comment on above: Order Comment: Speci men Type: BLOOD SPECIMEN Ordering Facility: [facility] Address: [address] [place] [address] Performed By: #### 5 7021-8 #### [facility] CLIA [id number] [address] [place], [place] [address] [place] Sodium [Moles/Vol] 141 mmol/L Normal 136-144 [facility] Comment on above: Order Comment: Speci men Type: BLOOD SPECIMEN Ordering Facility: [facility] Address: [address] [place] [address] Performed By: #### 5 7021-8 #### [facility] CLIA [id number] [address] [place], [place] [address] [place] Urea nitrogen [Mass/Vol] 13 mg/dL Normal 7-21 [facility] Comment on above: Order Comment: Speci men Type: BLOOD SPECIMEN Ordering Facility: [facility] Address: [address] [place] [address] Performed By: #### 5 7021-8 #### [facility] CLIA [id number] [address] [place] [address] [place] ECG COMPLETEon 08-26-2024 ECG COMPLETE Ventricular Rate : 6 2 BPM Atrial Rate : 62 BPM P-R Interval : 206 ms QRS Duration : 80 ms Q-T Interval : 398 ms QTC Calculation(Bazett) : 403 ms Calculated P [place] : 37 degrees Calculated R [place] : 7 degrees Calculated T [place] : 65 degrees NORMAL SINUS RHYTHM WITH 1ST DEGREE AV BLOCK LOW VOLTAGE PRECORDIAL LEADS BORDERLINE ECG Confirmed by fellow SUDHA SPICER MD ([id number]) on 09/08/2024 11:22:04 AM Confirmed by MD TRICE, PhD, ISA ([id number]) on 09/08/2024 1:41:33 PM NAME : IKE FLANNERY PID : [id number] : 1970 Gender : Female Race : ORD : [id number] Procedure Date : Aug 26 2024 18:20:39 Edit Date : Sep 08 2024 13:41:36 Diagnosis: NORMAL SINUS RHYTHM WITH 1ST DEGREE AV BLOCK LOW VOLTAGE PRECORDIAL LEADS BORDERLINE ECG Confirmed by fellow SUDHA SPICER MD ([id number]) on 09/08/2024 11:22:04 AM Confirmed by MD TRICE, PhD, ISA ([id number]) on 09/08/2024 1:41:33 PM Test Reason : Check QT Location : 170 : 70 G070-30 Overread By : MD TRICE, PhD,ISA Edited By : MD TRICE, PhD,ISA Referred By : PK BOSCH Acquired by : GEORGIANA BUNCH [facility] HISTORY PHYSICALon HISTORY PHYSICAL HNO ID: [id number] Author: GENNA SAHU DO Service: Oncology Author Type: Physician Type: H&P Filed: 08/27/2024 15:23 Note Text: ONCOLOGY: HISTORY AND PHYSICAL Weekdays 7 AM to 5 PM / Weekends 7 AM to 3 PM: Page 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 About 1.5 weeks ago, shortly after starting Xeloda, she noticed slurred speech and right hand weakness (e.g., difficulty signing her name). Her oncologist obtained a CT brain which showed a new intracranial mass, therefore she was sent to [facility] ED. They were not able to obtain an MRI due to the presence of a tissue solar power installer in her right breast. She was transferred to [facility] to coordinate MRI brain and to transition her multidisciplinary care. Currently she is managed by 4-5 hospitals in [facility] for oncology, ID and plastic surgery with scattered medical records, however would like one centralized medical center. Oncologic History - Primary Cancer: Right breast cancer metastatic to liver and now brain, ER-weakly positive, NC-negative, HER2-negative (IHC 0 on core biopsy, 1+ on residual disease at time of mastectomy). Liver biopsy 07/11/24 was ER-positive (41-50% weak staining), NC-negative, HER2-negative breast primary. - Primary Oncologist: Dr. Bobby Christy, [facility] 07/21/24 - Diagnostic History: Dx 03/2023 by biopsy - BMBx in April 2024 - PET scan 06/12/24 demonstrated an approximately 2.5 cm avid mass in the posterior liver without other findings suggestive of metastatic disease. - Liver biopsy 07/11/24 demonstrated metastatic adenocarcinoma consistent with breast primary that is ER-positive (41-50% weak staining), NC-negative and HER2-negative (IHC 0). - Treatment History: - Neoadjuvant chemo-immunotherapy therapy consisting of pemboliziumab with paclitaxel and carboplatin followed by doxorubicin and cyclophosphamide with continuing pembrolizumab - then bilateral mastectomy with right axillary dissection and tissue solar power installer reconstruction with multifocal residual disease, [id number] - She received adjuvant radiation and initiated adjuvant anastrozole in about January 2024 or March 2024 - also prescribed adjuvant abemaciclib which she believes she took for only about a week until her course was complicated by an infected seroma requiring removal of the left tissue solar power installer, mycobacterial infection, and pancytopenia - 10/2023: double [...] admission meds: amikacin (AMIKIN) 500 mg/2 mL soln ELIQUIS 5 mg tab(s), Take 5 mg [...] magnesium tab, (more content not included)... Normal [facility] Magnesium SerPl-mCncon 08-26 Magnesium [Mass/Vol] 2.1 mg/dL Normal 1.7-2.3 [facility] Comment on above: Order Comment: Speci men Type: BLOOD SPECIMEN Ordering Facility: [facility] Address: [address] [place] [address] Performed By: #### 5 7021-8 #### [facility] CLIA [id number] [address] [place] [address] [facility] NURSING PROGon 08-26-2024 NURSING PROG HNO ID: [id number] Author: CATIE YOO RN Service: Radiology Author [...] August 26, 2024 TIME: 9:39 PM Normal [facility] Phosphate SerPl-mCncon 08-26 Phosphate [Mass/Vol] 3.2 mg/dL Normal 2.7-4.8 [facility] Comment on above: Order Comment: Speci men Type: BLOOD SPECIMEN Ordering Facility: [facility] Address: [address] [place] [address] Performed By: #### 5 7021-8 #### [facility] CLIA [id number] [address] [place] [address] [place] [address] [place] 36on 08-25-2024 36 RN spoke with Seema from Medical Records at [facility] to request labs from 08/24/24 be faxed to [facility] ID. Fax number confirmed. Normal [facility] Documentationon 08-25-2024 Documentation [id number] Ike Flannery 1970 F Date Provider Department Center 08/25/2024 [facility] INF Anthony Heal Family History Adopted: Yes Problem Relation Age of Onset Heart attack Father Family Status - Relation Status Age at Father Normal [facility] 36on 08-24-2024 36 Dania from [facility] called and is faxing the pt;'s results to us. States creatinine is higher and LFT's have increased. Normal [facility] Abstracton 08-24-2024 Abstract [id number] Ike Flannery 1970 F Date Provider Department Center 08/24/2024 [facility] PED Anthony Heal Family History Adopted: Yes Problem Relation Age of Onset Heart attack Father Family Status - Relation Status Age at Father Normal [facility] Erroneous Encounteron 2024 Erroneous Encounter [id number] Ike Flannery 1970 F Date Provider Department Center 08/24/2024 [facility] Anthony Heal Family History Adopted: Yes Problem Relation Age of Onset Heart attack Father Family Status - Relation Status Age at Father Reason for Visit and Comments: Error (VOID this visit) [77] [facility] Orders Onlyon 08-24-2024 Orders Only [id number] Ike Flannery 1970 F Date Provider Department Center 08/24/2024 [facility] Anthony Heal Family History Adopted: Yes Problem Relation Age of Onset Heart attack Father Family Status - Relation Status Age at Father [facility] 36on 08-22-2024 36 I called patient as [...] Avi Tobar, PharmD, BCPS; Clinical Research Pharmacist [facility] Telephoneon 08-22-2024 Telephone [id number] Ike Flannery 1970 F Date Provider Department Center 08/22/2024 [facility] Anthony Heal Family History Adopted: Yes Problem Relation Age of Onset Heart attack Father Family Status - Relation Status Age at Father [facility] Documentationon 08-19-2024 Documentation [id number] Ike Flannery 1970 F Date Provider Department Center 08/19/2024 [facility] INF Anthony Heal Family History Adopted: Yes Problem Relation Age of Onset Heart attack Father Family Status - Relation Status Age at Father Normal [facility] Documentationon 08-17-2024 Documentation [id number] Ike Flannery 1970 F Date Provider Department Center 08/17/2024 [facility] INF Anthony Heal Family History Adopted: Yes Problem Relation Age of Onset Heart attack Father Family Status - Relation Status Age at Father Normal [facility] 37on 08-16-2024 37 Take levofloxacin either 2 hours before or 2 hours after taking the iron. If you use tums same thing either 2 hours before or 2 hours. Normal [facility] Follow-Upon 08-16-2024 Follow-Up [id number] Ike Flannery 1970 F Date Provider Department Center 08/16/2024 [facility] Anthony Heal Family History Adopted: Yes Problem Relation Age of Onset Heart attack Father Family Status - Relation Status Age at Father Level of Service:98259 NC OFFICE/OUTPATIENT ESTABLISHED MOD MDM 30 MIN Reason for Visit and Comments: Follow-up [265564] [facility] ANAEROBIC CULTUREon 08-13-19 ANAEROBIC CULTURE CULTURE RESULTS NO GROWTH 5 DAYS Normal [facility] Comment on above: Order Comment: Pre-o p diagnosis:LEFT AXILLA WOUND Performed By: #### A NAC ####[facility] ([facility])[address] [address] VIR FUNGAL CULTURE INCLUDES AVELINA AL SMEARon 08-12-2024 FUNGAL CULTURE INCLUDES FUNGAL SMEAR CULTURE RESULTS MYCOBACTERIUM ABSCESSUS Mycobacterium abscessus FUNGAL SMEAR No fungal elements seen On Direct Smear Normal [facility] Comment on above: Order Comment: Pre-o p diagnosis:LEFT AXILLA WOUNDContact microbiology if further workup is required for M.abscessus.No fungus isolated after 4 weeks. Performed By: #### F XIAO ####[facility] ([facility])[address] [address] VIR TISSUE CULTUREon 08-12-2024 TISSUE CULTURE Normal [facility] Comment on above: Order Comment: Pre-o p diagnosis:LEFT AXILLA WOUNDGrowth Observed At 2nd Day Performed By: #### T ISC ####[facility] ([facility])[address] [address] VIR Abstracton 08-11-2024 Abstract [id number] Ike Flannery 1970 F Date Provider Department Center 08/11/2024 184-[facility] INF Anthony Heal Family History Adopted: Yes Problem Relation Age of Onset Heart attack Father Family Status - Relation Status Age at Father Normal [facility] Abstracton 08-03-2024 Abstract [id number] Ike Flannery 1970 F Date Provider Department Center 08/03/2024 184-HU, [facility] Anthony Heal Family History Adopted: Yes Problem Relation Age of Onset Heart attack Father Family Status - Relation Status Age at Father Normal [facility] Documentationon 08-02-2024 Documentation [id number] Ike Flannery 1970 F Date Provider Department Center 08/02/2024 [id number] [facility] INF Anthony Heal Family History Adopted: Yes Problem Relation Age of Onset Heart attack Father Family Status - Relation Status Age at Father Normal [facility] Orders Onlyon 08-02-2024 Orders Only [id number] Ike Flannery 1970 F Date Provider Department Center 08/02/2024 [id number], HISTORICAL [facility] INF Anthony Heal Family History Adopted: Yes Problem Relation Age of Onset Heart attack Father Family Status - Relation Status Age at Father Normal [facility] AMIKACIN PEAK Lester 025 LOOK Sent to Reference Laboratory. Normal [facility] Comment on above: Order Comment: To be drawn one to two hours after completions of the 1700 dose of Amikacin Performed By: #### A MKP ####[facility] ([facility])[address] [address] VIR BASIC METABOLIC PANELon 07-02 Anion gap [Moles/Vol] 4 mmol/L Low 5-15 [facility] Comment on above: Performed By: #### B MP ####[facility] ([id number])[address] [place] [address] VIR Calcium [Mass/Vol] 8.3 mg/dL Low 8.5-10.5 [facility] Comment on above: Performed By: #### B MP ####[facility] ([id number])5200 [facility] [place] [address] VIR Chloride [Moles/Vol] 108 mmol/L Normal 98-109 [facility] Comment on above: Performed By: #### B MP ####[facility] ([id number])5200 [facility] [place] [address] VIR CO2 [Moles/Vol] 27 mmol/L Normal 22-32 [facility] Comment on above: Performed By: #### B MP ####[facility] ([id number])5200 [facility] [place] [address] VIR Creatinine [Mass/Vol] 0.77 mg/dL Normal 0.40-1.00 [facility] Comment on above: Result Comment: METH OD TRACEABLE TO IDMS STANDARD Performed By: #### B MP ####[facility] ([id number])5200 [facility] [place] [address] VIR EGFR (CKD-EPI) NON-RACE DEPENDENT >^90 Normal >=60 [facility] Comment on above: Result Comment: Repo rted eGFR is based on theCKD-EPI 2020 equation that doesnot use a race coefficient. Performed By: #### B MP ####[facility] [facility] ([id number])5200 [facility] [place] [address] VIR Glucose [Mass/Vol] 81 mg/dL Normal 65-99 [facility] Comment on above: Performed By: #### B MP ####[facility] ([id number])5200 [place] [address] VIR Potassium [Moles/Vol] 4.0 mmol/L Normal 3.5-5.0 [facility] Comment on above: Performed By: #### B MP ####[facility] ([id number])[address] [place] [address] VIR Sodium [Moles/Vol] 139 mmol/L Normal 134-146 [facility] Comment on above: Performed By: #### B MP ####[facility] ([id number])[address] [place] [address] VIR Urea nitrogen [Mass/Vol] 10 mg/dL Normal 5-23 [facility] Comment on above: Performed By: #### B MP ####[facility] ([id number])[address] [place] [address] VIR CBC WITH AUTO DIFFERENTIALon 07-29-2024 BASOPHILS ABSOLUTE COUNT (10*3/UL) BY AUTOMATED COUNT 0.0 10*3/uL Normal 0.0-0.2 [facility] Comment on above: Performed By: #### C BCA ####[facility] ([id number])[address] [place] [address] VIR BASOPHILS RELATIVE PERCENT BY AUTOMATED COUNT 0.8 % Normal [facility] Comment on above: Performed By: #### C BCA ####[facility] ([id number])[address] [place] [address] VIR CELLAVISION DIFFERENTIAL TYPE AUTOMATED DIFFERENTIAL Normal [facility] Comment on above: Performed By: #### C BCA ####[facility] ([id number])[address] [place] [address] VIR Eosinophils (Bld) [#/Vol] 0.3 10*3/uL Normal 0.0-0.4 [facility] Comment on above: Performed By: #### C BCA ####[facility] ([id number])[address] [place] [address] VIR EOSINOPHILS RELATIVE PERCENT BY AUTOMATED COUNT 5.4 % Normal [facility] Comment on above: Performed By: #### C BCA ####[facility] ([id number])[address] [place] [address] VIR Erythrocyte distribution width (RBC) [Ratio] 17.1 % High 11.5-15 [facility] Comment on above: Performed By: #### C BCA ####[facility] ([id number])5200 [facility] [place] [address] VIR Hematocrit (Bld) [Volume fraction] 27.6 % Low 35-47 [facility] Comment on above: Performed By: #### C BCA ####[facility] ([id number])5[address] [place] [address] VIR Hemoglobin (Bld) [Mass/Vol] 9.9 g/dL Low 11.7-15.5 [facility] Comment on above: Performed By: #### C BCA ####[facility] ([id number])5200 [place] [address] VIR LYMPHOCYTES ABSOLUTE COUNT (10*3/UL) BY AUTOMATED COUNT 0.6 10*3/uL Low 1.0-3.5 [facility] Comment on above: Performed By: #### C BCA ####[facility] ([id number])5[address] [place] [address] VIR LYMPHOCYTES RELATIVE PERCENT BY AUTOMATED COUNT 9.3 % Normal [facility] Comment on above: Performed By: #### C BCA ####[facility] ([id number])5[address] [place] [address] VIR MCH (RBC) [Entitic mass] 32.8 pg Normal 27-34 [facility] Comment on above: Performed By: #### C BCA ####[facility] ([id number])[address] [place] [address] VIR MCHC (RBC) [Mass/Vol] 35.8 g/dL Normal 32-36 [facility] Comment on above: Performed By: #### C BCA ####[facility] ([id number])5[address] [place] [address] VIR MCV (RBC) [Entitic vol] 92 fL Normal 80-100 [facility] Comment on above: Performed By: #### C BCA ####[facility] ([id number])5200 [facility] [place] [address] VIR MONOCYTES ABSOLUTE COUNT (10*3/UL) BY AUTOMATED COUNT 0.4 10*3/uL Normal 0.0-0.9 [facility] Comment on above: Performed By: #### C BCA ####[facility] ([id number])[address] [place] [address] VIR MONOCYTES RELATIVE PERCENT BY AUTOMATED COUNT 7.0 % Normal [facility] Comment on above: Performed By: #### C BCA ####[facility] ([id number])[address] [place] [address] VIR NEUTROPHILS ABSOLUTE COUNT BY AUTOMATED COUNT 4.6 10*3/uL Normal 1.5-6.6 [facility] Comment on above: Performed By: #### C BCA ####[facility] ([id number])[address] [place] [address] VIR NEUTROPHILS RELATIVE PERCENT BY AUTOMATED COUNT 77.5 % Normal [facility] Comment on above: Performed By: #### C BCA ####[facility] ([id number])5200 [facility] [place] [address] VIR Platelet mean volume (Bld) [Entitic vol] 6.9 fL Low 7-12 [facility] Comment on above: Performed By: #### C BCA ####[facility] ([id number])[address] [place] [address] VIR Platelets (Bld) [#/Vol] 200 10*3/uL Normal 150-450 [facility] Comment on above: Performed By: #### C BCA ####[facility] ([id number])5200 [facility] [place] [address] VIR RBC COUNT 3.02 X10E12/L Low 3.8-5.2 [facility] Comment on above: Performed By: #### C BCA ####[facility] ([id number])5200 [place] [address] VIR WBC (Bld) [#/Vol] 5.9 10*3/uL Normal 4-11 [facility] Comment on above: Performed By: #### C BCA ####[facility] ([id number])5[address] [facility] [place] [address] VIR MONTREAT GENERIC ORDERon 025 TEST RESULT SEE COMMENTS Normal [facility] Comment on above: Result Comment: Test Result Flag Unit RefValue Amikacin, Peak, S 20.1 mcg/mL 20.0 - 35.0 Test Performed by: [facility] [place] [address] Internship: Colten Sosa Ph.D.; CLIA# [id number] Performed By: #### M GO ####[facility] (SDL)[address] [place] [address] VIR 36on 07-28-2024 36 VM and callback left to verify patient received and infused 900mg amikacin Normal [facility] BASIC METABOLIC PANELon 05 Anion gap [Moles/Vol] 7 mmol/L Normal 5-15 [facility] Comment on above: Performed By: #### B MP ####[facility] ([id number])5200 [place] [address] VIR Calcium [Mass/Vol] 8.2 mg/dL Low 8.5-10.5 [facility] Comment on above: Performed By: #### B MP ####[facility] ([id number])5200 [place] [address] VIR Chloride [Moles/Vol] 106 mmol/L Normal 98-109 [facility] Comment on above: Performed By: #### B MP ####[facility] ([id number])5[address] [place] [address] VIR CO2 [Moles/Vol] 24 mmol/L Normal 22-32 [facility] Comment on above: Performed By: #### B MP ####[facility] ([id number])[address] [place] [address] VIR Creatinine [Mass/Vol] 0.65 mg/dL Normal 0.40-1.00 [facility] Comment on above: Result Comment: METH OD TRACEABLE TO IDMS STANDARD Performed By: #### B MP ####[facility] ([id number])5200 [facility] [place] [address] VIR EGFR (CKD-EPI) NON-RACE DEPENDENT >^90 Normal >=60 [facility] Comment on above: Result Comment: Repo rted eGFR is based on theCKD-EPI 2020 equation that doesnot use a race coefficient. Performed By: #### B MP ####[facility] ([id number])5200 [facility] [place] [address] VIR Glucose [Mass/Vol] 82 mg/dL Normal 65-99 [facility] Comment on above: Performed By: #### B MP ####[facility] ([id number])5[address] [facility] [place] [address] VIR Potassium [Moles/Vol] 3.8 mmol/L Normal 3.5-5.0 [facility] Comment on above: Performed By: #### B MP ####[facility] ([id number])5[address] [facility] [place] [address] VIR Sodium [Moles/Vol] 137 mmol/L Normal 134-146 [facility] Comment on above: Performed By: #### B MP ####[facility] ([id number])5[address] [facility] [place] [address] VIR Urea nitrogen [Mass/Vol] 12 mg/dL Normal 5-23 [facility] Comment on above: Performed By: #### B MP ####[facility] ([id number])[address] [place] [address] VIR CBC WITH AUTO DIFFERENTIALon 07-28-2024 BASOPHILS ABSOLUTE COUNT (10*3/UL) BY AUTOMATED COUNT 0.0 10*3/uL Normal 0.0-0.2 [facility] Comment on above: Performed By: #### C BCA ####[facility] ([id number])[address] [place] [address] VIR BASOPHILS RELATIVE PERCENT BY AUTOMATED COUNT 0.5 % Normal [facility] Comment on above: Performed By: #### C BCA ####[facility] ([id number])[address] [place] [address] VIR CELLAVISION DIFFERENTIAL TYPE AUTOMATED DIFFERENTIAL Normal [facility] Comment on above: Performed By: #### C BCA ####[facility] ([id number])[address] [place] [address] VIR Eosinophils (Bld) [#/Vol] 0.2 10*3/uL Normal 0.0-0.4 [facility] Comment on above: Performed By: #### C BCA ####[facility] ([id number])[address] [place] [address] VIR EOSINOPHILS RELATIVE PERCENT BY AUTOMATED COUNT 4.5 % Normal [facility] Comment on above: Performed By: #### C BCA ####[facility] ([id number])[address] [place] [address] VIR Erythrocyte distribution width (RBC) [Ratio] 17.1 % High 11.5-15 [facility] Comment on above: Performed By: #### C BCA ####[facility] ([id number])[address] [place] [address] VIR Hematocrit (Bld) [Volume fraction] 25.9 % Low 35-47 [facility] Comment on above: Performed By: #### C BCA ####[facility] ([id number])[address] [place] [address] VIR Hemoglobin (Bld) [Mass/Vol] 9.0 g/dL Low 11.7-15.5 [facility] Comment on above: Performed By: #### C BCA ####[facility] ([id number])5200 [facility] [place] [address] VIR LYMPHOCYTES ABSOLUTE COUNT (10*3/UL) BY AUTOMATED COUNT 0.3 10*3/uL Low 1.0-3.5 [facility] Comment on above: Performed By: #### C BCA ####[facility] ([id number])5[address] [facility] [place] [address] VIR LYMPHOCYTES RELATIVE PERCENT BY AUTOMATED COUNT 6.1 % Normal [facility] Comment on above: Performed By: #### C BCA ####[facility] ([id number])5200 [facility] [place] [address] VIR MCH (RBC) [Entitic mass] 31.9 pg Normal 27-34 [facility] Comment on above: Performed By: #### C BCA ####[facility] ([id number])5200 [facility] [place] [address] VIR MCHC (RBC) [Mass/Vol] 34.6 g/dL Normal 32-36 [facility] Comment on above: Performed By: #### C BCA ####[facility] ([id number])5200 [facility] [place] [address] VIR MCV (RBC) [Entitic vol] 92 fL Normal 80-100 [facility] Comment on above: Performed By: #### C BCA ####[facility] ([id number])5200 [facility] [place] [address] VIR MONOCYTES ABSOLUTE COUNT (10*3/UL) BY AUTOMATED COUNT 0.3 10*3/uL Normal 0.0-0.9 [facility] Comment on above: Performed By: #### C BCA ####[facility] ([id number])5200 [facility] [place] [address] VIR MONOCYTES RELATIVE PERCENT BY AUTOMATED COUNT 5.4 % Normal [facility] Comment on above: Performed By: #### C BCA ####[facility] ([id number])[address] [place] [address] VIR NEUTROPHILS ABSOLUTE COUNT BY AUTOMATED COUNT 4.2 10*3/uL Normal 1.5-6.6 [facility] Comment on above: Performed By: #### C BCA ####[facility] ([id number])5[address] [facility] [place] [address] VIR NEUTROPHILS RELATIVE PERCENT BY AUTOMATED COUNT 83.5 % Normal [facility] Comment on above: Performed By: #### C BCA ####[facility] ([id number])5200 [facility] [place] [address] VIR Platelet mean volume (Bld) [Entitic vol] 6.8 fL Low 7-12 [facility] Comment on above: Performed By: #### C BCA ####[facility] ([id number])5200 [facility] [place] [address] VIR Platelets (Bld) [#/Vol] 195 10*3/uL Normal 150-450 [facility] Comment on above: Performed By: #### C BCA ####[facility] ([id number])5[address] [facility] [place] [address] VIR RBC COUNT 2.81 X10E12/L Low 3.8-5.2 [facility] Comment on above: Performed By: #### C BCA ####[facility] ([id number])5200 [facility] [place] [address] VIR WBC (Bld) [#/Vol] 5.1 10*3/uL Normal 4-11 [facility] Comment on above: Performed By: #### C BCA ####[facility] ([id number])[address] [place] [address] VIR FERRITINon 07-28-2024 Ferritin [Mass/Vol] 374 ng/mL High 11-307 [facility] Comment on above: Performed By: #### F ERR ####[facility] ([id number])[address] [place] [address] VIR FOLATEon 07-28-2024 FOLIC ACID 6.9 ng/mL Normal >5.8 [facility] Comment on above: Performed By: #### F AKSHAT ####[facility] ([facility])[address], [place] [address] VIR IRON AND TIBCon 07-28-2024 Iron [Mass/Vol] 26 ug/dL Low 50-170 [facility] Comment on above: Performed By: #### F EPR ####[facility] ([facility])[address], [place] [address] VIR IRON BINDING 270 ug/dL Normal 250-425 [facility] Comment on above: Performed By: #### F EPR ####[facility] ([facility])[address], [place] [address] VIR IRON SATURATION 10 % SATURATION Low 15-50 [facility] Comment on above: Performed By: #### F EPR ####[facility] ([facility])[address], [place] [address] VIR Transferrin [Mass/Vol] 193 mg/dL Normal 168-336 [facility] Comment on above: Performed By: #### F EPR ####[facility] ([facility])[address], [place] [address] VIR PREALBUMINon 07-28-2024 Prealbumin [Mass/Vol] 19 mg/dL Normal 18-45 [facility] Comment on above: Performed By: #### P AB ####[facility] ([facility])[address], [place] [address] VIR VITAMIN B12on 07-28-2024 Cobalamin (Vitamin B12) [Mass/Vol] 984 pg/mL High 180-914 [facility] Comment on above: Performed By: #### B 12 ####[facility] ([facility])[address], [place] [address] VIR [employer] CULTURE CON[employer]TRATED INC [employer] SMEARon 07-27-2024 AFB CULTURE CONCENTRATED INCLUDES AFB SMEAR CULTURE RESULTS NO ACID FAST BACILLI ISOLATED IN 8 WEEKS AFB SMEAR No Acid Fast Bacili (Concentrated Smear) Normal [facility] Comment on above: Order Comment: Pre-o p diagnosis:LEFT BREAST WOUND Performed By: #### A FBCON ####[facility] ([facility])[address], [place] [address] VIR AFB CULTURE CONCENTRATED INCLUDES AFB SMEAR Normal [facility] Comment on above: Order Comment: Pre-o p diagnosis:LEFT BREAST WOUND Performed By: #### A FBCON ####[facility] ([facility])[address], [place] [address] VIR 36on 07-22-2024 36 Patient was called [...] of around 35 mcg/mL. Avi Tobar, SukiD, BCPS; Clinical Research Pharmacist [facility] [place] Telephone (HEMCA3) IKE FLANNERY ([id number]) 1970 F Date Time Provider Department 07/22/24 BOBBY CHRISTY During your visit today, we recorded the following information about you: DarwinNicolasSantosKaren 07/22/2024 8:51 AM Signed Ike Widman is calling Bobby Christy MD today regarding Shift Boss - Other Patient called to let Dr. [...] by name and birthdate. Requesting response back: [phone] (home) [phone] (cell) Karen Yuki July 22, 2024 Saman Joe RN 07/22/2024 1:49 PM Signed Contacted patient [...] RN - Fully Assessed 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 - Other [3602] Prescriptions as of 07/27/2024 [...] Date: 07/22/2024 (None) Encounter Status:Closed by SAMAN JOE on 07/27/24 Normal [facility] OUTSIDE SURG PATH SLIDE DONNA Toribio 07-22-2024 ADDENDUM 1: Normal [facility] Comment on above: Order Comment: Speci men Type: FORMALIN-FIXED PARAFFIN-EMBEDDED TISSUE SPECIMENOrdering Facility: AP Outside Review Address: , , Result Comment: Adonay tubbs biomarkers (ER, PgR, and HER2) performed at the outside institution are available for review at the [facility] and demonstrate the tumor cells to be positive for ER (30% nuclear staining of tumor cells with moderate staining intensity), negative for NC (<1% nuclear staining of tumor cells), and negative for HER2 (score of 1+). [facility] 08/09/24 Addendum electronically signed by Kev Kang MD on 08/09/2024 at 0901 EDT Performed By: #### L [id number] ####[facility] [id number] [employer] [address] STATES OF [facility] AP DISCLAIMER Normal [facility] Comment on above: Order Comment: Speci men Type: FORMALIN-FIXED PARAFFIN-EMBEDDED TISSUE SPECIMENOrdering Facility: AP Outside Review Address: , , Result Comment: Jarod Key Test (LDT) Disclaimer: Performance characteristics of immunohistochemical, immunofluorescent, and chromogenic in-situ hybridization tests have been determined by the performing laboratory within [facility]'s [facility]ice [facility] Pathology and Laboratory Medicine Department ([facility], [facility], [facility], [facility], [facility], [facility], or [facility]) in a manner consistent with CLIA requirements. One or more of these tests may not have been cleared or approved by the FDA. [facility] is regulated under CLIA as qualified to perform high-complexity testing. These tests are used for clinical purposes. These should not be regarded as investigational or for research. Positive and negative controls stain appropriately. Performed By: #### L [id number] ####[facility] [id number] [address] [address] [facility] CASE REPORT Normal [facility] Comment on above: Order Comment: Speci men Type: FORMALIN-FIXED PARAFFIN-EMBEDDED TISSUE SPECIMENOrdering Facility: AP Outside Review Address: , , Result Comment: Surg [facility] Pathology Report Case: [id number] Authorizing Provider: Bobby Christy MD Collected: 07/22/2024 03:52 PM Ordering Location: [facility] Received: 07/22/2024 03:51 PM [facility] Pathologist: Michael López MD Specimen: Slide(s), 11 SLIDES [id number] Performed By: #### L [id number] ####[facility] LABIA [id number] [id number] [place] [address] DIAGNOSIS COMMENT Tumor cells are positive for CK7 and GATA3, with weak expression for ER. Negative stains include CK19, NC, and CDX2. Normal [facility] Comment on above: Order Comment: Speci men Type: FORMALIN-FIXED PARAFFIN-EMBEDDED TISSUE SPECIMENOrdering Facility: AP Outside Review Address: , , Performed By: #### L [id number] ####[facility] LABIA [id number] [address] [address] [facility] FINAL DIAGNOSIS Normal [facility] Comment on above: Order Comment: Speci men Type: FORMALIN-FIXED PARAFFIN-EMBEDDED TISSUE SPECIMENOrdering Facility: AP Outside Review Address: , , Result Comment: Live r mass, biopsy: - Adenocarcinoma, compatible with breast origin. at 1337 EDT Performed By: #### L [id number] ####[facility] LABCLIA [id number] [address] [address] [facility] FINAL PERFORMING LAB Normal [facility] Comment on above: Order Comment: Speci men Type: FORMALIN-FIXED PARAFFIN-EMBEDDED TISSUE SPECIMENOrdering Facility: AP Outside Review Address: , , Result Comment: Diag nostic interpretation performed at: [facility], [address] [facility], [place] [address] CLIA# [id number] Weekday Babysitter: Derick Meadows MD Performed By: #### L [id number] ####[facility] LABCLIA [id number] [place] [address] [place] Orders Onlyon 07-22-2024 Orders Only [id number] Ike Flannery 1970 Date Provider Department Center 07/22/2024 [facility] Family History Adopted: Yes Problem Relation Age of Onset Heart attack Father Family Status - Relation Status Age at Father Normal [facility] Telephoneon 07-22-2024 Telephone [id number] Ike Flannery 1970 Provider Department Center 07/22/2024 [facility] Family History Adopted: Yes Problem Relation Age of Onset Heart attack Father Family Status - Relation Status Age at Father Normal [facility] CNOVSPon 07-21-2024 CNOVSP Visit (SP) Office ([id number]) IKE FLANNERY ([id number]) 1970 Time Provider Department 07/21/24 3:00 PM [id number] During your visit today, we recorded the [...] with a lymph-node positive ER-weakly positive (12-15%), NC-negative, HER2-negative (IHC 0 on core biopsy, 1+ on residual disease at time of mastectomy) right breast cancer in March 2023. She was treated with neoadjuvant chemo-immunotherapy therapy consisting of pemboliziumab with paclitaxel and carboplatin followed by doxorubicin and cyclophosphamide with continuing pembrolizumab then underwent bilateral mastectomy with right axillary dissection and tissue solar power installer reconstruction at which time there was multifocal residual disease, [id number]. She received adjuvant radiation and initiated adjuvant anastrozole in about January 2024 or March 2024. She was also prescribed adjuvant abemaciclib which she believes she took for only about a week until her course was complicated by an infected seroma requiring removal of the left tissue solar power installer, mycobacterial infection, and pancytopenia. She had a BMBx in April and is interested in having that reviewed at [facility]. She has been dealing with issues [...] primary that is ER-positive (41-50% weak staining), NC-negative and HER2-negative (IHC 0). PMH: She has a h/o HTN, DVT (on Eliquis); she is s/p hysterectomy and subsequent BSO. FH:She is adopted and family history is not known. 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 She is engaged and [...] for transaminase elevations. IMPRESSION: Metastatic ER-weakly positive, NC-negative, HER2-negative breast cancer involving liver with mycobaterium [...] and could set up referral to Dr. Francoise grajeda at [facility]. We discussed potential future treatment options [...] which included preparing to see the patient, [id number] patient care, completing clinical documentation, performing a medically appropriate examination, counseling and educating the patient/family/caregiv er, and communicating with other HCPs (not separately reported). Bobby Christy MD CC: Tosha Hansen RN 07/21/2024 4:48 PM Signed Additional in (more content not included)... Normal [facility] CNOVon 07-19-2024 CNOV Office Visit (INFDMN ) IKE FLANNERY ([id number]) 1970 F Date Time Provider Department 07/19/24 8:00 AM KRYSTIN BARRAGAN INFREINIER During your visit today, we recorded the following information about you: Temperature Pulse Respiration Blood pressure 96.8 degrees 72/minute 18/minute 138/84 Weight 88.5 kg Krystin Barragan MD 07/27/2024 9:06 AM Signed INFECTIOUS DISEASES [facility] Ike Flannery is being seen in consultation [...] 28/2024 followed by bilateral mastectomy with bilateral solar power installer placement, complicated by large L side large seroma. - 10/2023 bilateral skin sparing mastectomies and tissue explander reconstruction complicated by infected seroma L side - 11/27/2023 : Left breast IANDD and solar power installer removal - intra op cx pos for [...] mg total (more content not included)... Normal [facility] Orders Onlyon 07-19-2024 Orders Only [id number] Ike Flannery Yumi 1970 F Date Provider Department Center 07/19/2024 [id number], HISTORICAL [facility] INF Anthony Heal Family History Adopted: Yes Problem Relation Age of Onset Heart attack Father Family Status - Relation Status Age at Father Normal [facility] 36on 07-12-2024 36 Patient reached out to me to communicate that she has noticed her BP trending up, with reported readings around 150 to 160/100 to 110. She asked if this could be an adverse effect of omadacycline. In consultation with Dr. Herman Lui, I called patient and stated that omadacycline is likely not causing the increased BP as this is an uncommon adverse effect (approximately 3% per package insert) and also, it is very important to take the omadacycline to treat her infection. I called [facility] to let them know about [...] home and documenting the times/readings in her convention planner so that she can share them with primary care. She confirmed that she knows appropriate technique for checking BP. I also encouraged her to call primary care as soon as possible to make an appointment and re-establish care with them. Avi Toabr, PharmD, [facility] Telephoneon 07-12-2024 Telephone [id number] Ike Flannery Yumi 1970 F Date Provider Department Center 07/12/2024 HERMAN VITAL [facility] INF Anthony Heal Family History Adopted: Yes Problem Relation Age of Onset Heart attack Father Family Status - Relation Status Age at Father [facility] APTTon 07-11-2024 aPTT Coag (Bld) [Time] 32 s Normal 26-37 [facility] Comment on above: Performed By: #### P TT ####[facility] ([id number])5200 [place] [address] VIR IR PERCUTANEOUS BX LIVERon 0 07-11-2024 IR PERCUTANEOUS BX LIVER Normal [facility] PLATELET COUNTon 07-11-2024 Platelet mean volume (Bld) [Entitic vol] 7.1 fL Normal 7-12 [facility] Comment on above: Performed By: #### P LTCT ####[facility] ([id number])5[address] [place] [address] VIR Platelets (Bld) [#/Vol] 258 10*3/uL Normal 150-450 [facility] Comment on above: Performed By: #### P LTCT ####[facility] ([id number])[address] [place] [address] VIR PROTIME AND INRon 07-11-2024 INR 1.0 Normal 0.9-1.2 [facility] Comment on above: Performed By: #### P INR ####[facility] ([id number])5[address] [place] [address] VIR PT Coag (PPP) [Time] 10.9 s Normal 9.8-13.2 [facility] Comment on above: Performed By: #### P INR ####[facility] ([id number])[address] [place] [address] VIR Orders Onlyon 07-06-2024 Orders Only [id number] Ike Flannery 1970 F Date Provider Department Center 07/06/2024 [id number], HISTORICAL [facility] INF Anthony Heal Family History Adopted: Yes Problem Relation Age of Onset Heart attack Father Family Status - Relation Status Age at Father Normal [facility] Orders Onlyon 07-05-2024 Orders Only [id number] Ike Flannery 1970 F Date Provider Department Center 07/05/2024 [id number], HISTORICAL [facility] INF Anthony Heal Family History Adopted: Yes Problem Relation Age of Onset Heart attack Father Family Status - Relation Status Age at Father Normal [facility] Documentationon 06-30-2024 Documentation [id number] Ike Flannery 1970 F Date Provider Department Center 06/30/2024 1045-AVI TOBAR [facility] INF Anthony Heal Family History Adopted: Yes Problem Relation Age of Onset Heart attack Father Family Status - Relation Status Age at Father Normal [facility] Documentation [id number] Ike Flannery 1970 F Date Provider Department Center 06/30/2024 184-HERMAN LUI [facility] Anthony Heal Family History Adopted: Yes Problem Relation Age of Onset Heart attack Father Family Status - Relation Status Age at Father Reason for Visit and Comments: Telephone call to [facility] [Other] [facility] Follow-Upon 06-30-2024 Follow-Up [id number] Ike Flannery 1970 F Date Provider Department Center 06/30/2024 Shubham-HERMAN LUI [facility] Anthony Heal Family History Adopted: Yes Problem Relation Age of Onset Heart attack Father Family Status - Relation Status Age at Father Level of Service:85885 NC OFFICE/OUTPATIENT ESTABLISHED MOD MDM [address] [facility] Orders Onlyon 06-30-2024 Orders Only [id number] Ike Flannery 1970 F Date Provider Department Center 06/30/2024 [id number], HISTORICAL [facility] Anthony Heal Family History Adopted: Yes Problem Relation Age of Onset Heart attack Father Family Status - Relation Status Age at Father [facility] on 06-28-2024 36 I am not sure if you want this refilled [facility] 36on 06-22-2024 36 RN called to request most recent labs be faxed to [facility] ID. Fax number confirmed [facility] Refillon 06-21-2024 Refill [id number] Ike Flannery 1970 F Date Provider Department Center 06/21/2024 Shubham-HERMAN LUI [facility] Anthony Heal Family History Adopted: Yes Problem Relation Age of Onset Heart attack Father Family Status - Relation Status Age at Father Reason for Visit and Comments: Med Refill [[id number]] [facility] Refill [id number] Ike Flannery 1970 F Date Provider Department Center 06/21/2024 Bindu0-ODALYS DAVIS [facility] IN[facility] Anthony Heal Family History Adopted: Yes Problem Relation Age of Onset Heart attack Father Family Status - Relation Status Age at Father Reason for Visit and Comments: Med Refill [[id number]] [facility] CT CHEST WO CONTon CT CHEST WO CONT CT CHEST WO CONT *ADDENDUM*An addendum is being issued for billing: Minimal calcified coronary arterial disease. Finalized by Nemesio Berrios MD on 06/20/2024 2:39 PM [facility] CBC AND AUTO DIFFon 06-16-19 25 ABSOLUTE BASOPHIL 0.0 X10E9/L Normal 0.0-0.2 [facility] Comment on above: Performed By: #### C BCA, CMP ####[facility] ([id number])5200 [place] [address] ABSOLUTE NEUTROPHIL 4.0 X10E9/L Normal 1.5-6.6 [facility] Comment on above: Performed By: #### C BCA, CMP ####[facility] ([id number])5[address] [place] [address] Basophils/100 WBC (Bld) 0.7 % Normal [facility] Comment on above: Performed By: #### C BCA, CMP ####[facility] ([id number])5[address] [place] [address] Eosinophils (Bld) [#/Vol] 0.3 10*3/uL Normal 0.0-0.4 [facility] Comment on above: Performed By: #### C BCA, CMP ####[facility] ([id number])5[address] [place] [address] Eosinophils/100 WBC (Bld) 6.2 % Normal [facility] Comment on above: Performed By: #### C BCA, CMP ####[facility] ([id number])5[address] [place] [address] Erythrocyte distribution width (RBC) [Ratio] 19.1 % High 11.5-15.0 [facility] Comment on above: Performed By: #### C BCA, CMP ####[facility] ([id number])5[address] [place] [address] Hematocrit (Bld) [Volume fraction] 27.6 % Low 35-47 [facility] Comment on above: Performed By: #### C BCA, CMP ####[facility] ([id number])5[address] [place] [address] Hemoglobin (Bld) [Mass/Vol] 9.4 g/dL Low 11.7-15.5 [facility] Comment on above: Performed By: #### C BCA, CMP ####[facility] ([id number])5200 [facility] [place] [address] Lymphocytes (Bld) [#/Vol] 0.7 10*3/uL Low 1.0-3.5 [facility] Comment on above: Performed By: #### C BCA, CMP ####[facility] ([id number])5200 [facility] [place] [address] Lymphocytes/100 WBC (Bld) 12.9 % Normal [facility] Comment on above: Performed By: #### C BCA, CMP ####[facility] ([id number])5200 [facility] [place] [address] MCH (RBC) [Entitic mass] 30.9 pg Normal 27-34 [facility] Comment on above: Performed By: #### C BCA, CMP ####[facility] ([id number])5200 [facility] [place] [address] MCHC (RBC) [Mass/Vol] 33.9 g/dL Normal 32-36 [facility] Comment on above: Performed By: #### C BCA, CMP ####[facility] ([id number])5200 [facility] [place] [address] MCV (RBC) [Entitic vol] 91 fL Normal 80-100 [facility] Comment on above: Performed By: #### C BCA, CMP ####[facility] ([id number])5200 [facility] [place] [address] Monocytes (Bld) [#/Vol] 0.6 10*3/uL Normal 0-0.9 [facility] Comment on above: Performed By: #### C BCA, CMP ####[facility] ([id number])[address] [place] [address] Monocytes/100 WBC (Bld) 10.3 % Normal [facility] Comment on above: Performed By: #### C BCA, CMP ####[facility] ([id number])5200 [facility] [place] [address] Neutrophils/100 WBC (Bld) 69.9 % Normal [facility] Comment on above: Performed By: #### C BCA, CMP ####[facility] ([id number])5200 [facility] [place] [address] Platelet mean volume (Bld) [Entitic vol] 7.1 fL Normal 7-12 [facility] Comment on above: Performed By: #### C BCA, CMP ####[facility] ([id number])5200 [facility] [place] [address] Platelets (Bld) [#/Vol] 227 10*3/uL Normal 150-450 [facility] Comment on above: Performed By: #### C BCA, CMP ####[facility] ([id number])[address] [place] [address] RBC COUNT 3.03 X10E12/L Low 3.80-5.20 [facility] Comment on above: Performed By: #### C BCA, CMP ####[facility] ([id number])5[address] [facility] [place] [address] WBC (Bld) [#/Vol] 5.7 10*3/uL Normal 4.0-11.0 [facility] Comment on above: Performed By: #### C BCA, CMP ####[facility] ([id number])5200 [facility] [place] [address] COMPREHENSIVE METABOLIC PANE [place] 06-15-2024 Albumin [Mass/Vol] 3.2 g/dL Normal 3.2-5.3 [facility] Comment on above: Performed By: #### C BCA, CMP ####[facility] ([id number])5200 [facility] [place] [address] ALP [Catalytic activity/Vol] 64 U/L Normal 39-130 [facility] Comment on above: Performed By: #### C BCA, CMP ####[facility] ([id number])[address] [place] [address] ALT [Catalytic activity/Vol] 11 U/L Normal 0-31 [facility] Comment on above: Performed By: #### C BCA, CMP ####[facility] ([id number])[address] [place] [address] Anion gap [Moles/Vol] 5 mmol/L Normal 5-15 [facility] Comment on above: Performed By: #### C BCA, CMP ####[facility] ([id number])[address] [place] [address] AST [Catalytic activity/Vol] 13 U/L Normal 0-41 [facility] Comment on above: Performed By: #### C BCA, CMP ####[facility] ([id number])[address] [place] [address] Bilirubin [Mass/Vol] 0.7 mg/dL Normal 0.3-1.2 [facility] Comment on above: Performed By: #### C BCA, CMP ####[facility] ([id number])[address] [place] [address] Calcium [Mass/Vol] 9.2 mg/dL Normal 8.5-10.5 [facility] Comment on above: Performed By: #### C BCA, CMP ####[facility] ([id number])5[address] [facility] [place] [address] Chloride [Moles/Vol] 104 mmol/L Normal 98-109 [facility] Comment on above: Performed By: #### C BCA, CMP ####[facility] ([id number])5200 [facility] [place] [address] CO2 [Moles/Vol] 29 mmol/L Normal 22-32 [facility] Comment on above: Performed By: #### C BCA, CMP ####[facility] ([id number])5[address] [place] [address] Creatinine [Mass/Vol] 0.68 mg/dL Normal 0.40-1.00 [facility] Comment on above: Result Comment: METH OD TRACEABLE TO IDMS STANDARD Performed By: #### C BCA, CMP ####[facility] ([id number])[address] [place] [address] eGFR (CKD-EPI) NON-RACE DEPENDENT >90 Normal >59 [facility] Comment on above: Result Comment: Repo rted eGFR is based on theCKD-EPI 2020 equation that doesnot use a race coefficient. Performed By: #### C BCA, CMP ####[facility] ([id number])[address] [place] [address] Glucose [Mass/Vol] 87 mg/dL Normal 65-99 [facility] Comment on above: Performed By: #### C BCA, CMP ####[facility] ([id number])5[address] [facility] [place] [address] Potassium [Moles/Vol] 3.7 mmol/L Normal 3.5-5.0 [facility] Comment on above: Performed By: #### C BCA, CMP ####[facility] ([id number])5200 [facility] [place] [address] Protein [Mass/Vol] 5.3 g/dL Low 6.0-8.0 [facility] Comment on above: Performed By: #### C BCA, CMP ####[facility] ([id number])5200 [facility] [place] [address] Sodium [Moles/Vol] 138 mmol/L Normal 134-146 [facility] Comment on above: Performed By: #### C BCA, CMP ####[facility] ([id number])5200 [facility] [place] [address] Urea nitrogen [Mass/Vol] 16 mg/dL Normal 5-23 [facility] Comment on above: Performed By: #### C BCA, CMP ####[facility] ([id number])[address] [place] [address] [facility] ORDERon 04-16-2 025 TEST NAME NAIMA AMIKACIN PEAK SERUM Normal [facility] Comment on above: Performed By: #### G O ####[facility] ([id number])5200 [place] [address] TEST RESULT SEE COMMENTS 06/16/2024 12:45 PM Abnormal [facility] Comment on above: Result Comment: NOTE Test Result Flag Unit RefValue Amikacin, Peak, S 18.1 L mcg/mL 20.0 - 35.0 Test Performed by: [place] [address] Internship: Colten Sosa Ph.D.; CLIA# [id number] Performed By: #### G O ####[facility] ([id number])5[address] [place] [address] CBC AND AUTO DIFFon 06-15-19 25 ABSOLUTE BASOPHIL 0.1 X10E9/L Normal 0.0-0.2 [facility] Comment on above: Performed By: #### C BCA, CMP ####[facility] ([id number])5200 [place] [address] ABSOLUTE NEUTROPHIL 5.1 X10E9/L Normal 1.5-6.6 [facility] Comment on above: Performed By: #### C BCA, CMP ####[facility] ([id number])5200 [place] [address] Basophils/100 WBC (Bld) 0.9 % Normal [facility] Comment on above: Performed By: #### C BCA, CMP ####[facility] ([id number])5[address] [place] [address] Eosinophils (Bld) [#/Vol] 0.4 10*3/uL Normal 0.0-0.4 [facility] Comment on above: Performed By: #### C BCA, CMP ####[facility] ([id number])5200 [facility] [place] [address] Eosinophils/100 WBC (Bld) 6.2 % Normal [facility] Comment on above: Performed By: #### C BCA, CMP ####[facility] ([id number])[address] [place] [address] Erythrocyte distribution width (RBC) [Ratio] 19.4 % High 11.5-15.0 [facility] Comment on above: Performed By: #### C BCA, CMP ####[facility] ([id number])5200 [facility] [place] [address] Hematocrit (Bld) [Volume fraction] 27.6 % Low 35-47 [facility] Comment on above: Performed By: #### C BCA, CMP ####[facility] ([id number])5200 [facility] [place] [address] Hemoglobin (Bld) [Mass/Vol] 9.3 g/dL Low 11.7-15.5 [facility] Comment on above: Performed By: #### C BCA, CMP ####[facility] ([id number])5200 [facility] [place] [address] Lymphocytes (Bld) [#/Vol] 0.8 10*3/uL Low 1.0-3.5 [facility] Comment on above: Performed By: #### C BCA, CMP ####[facility] ([id number])5200 [facility] [place] [address] Lymphocytes/100 WBC (Bld) 10.8 % Normal [facility] Comment on above: Performed By: #### C BCA, CMP ####[facility] ([id number])5200 [facility] [place] [address] MCH (RBC) [Entitic mass] 30.6 pg Normal 27-34 [facility] Comment on above: Performed By: #### C BCA, CMP ####[facility] ([id number])5200 [facility] [place] [address] MCHC (RBC) [Mass/Vol] 33.6 g/dL Normal 32-36 [facility] Comment on above: Performed By: #### C BCA, CMP ####[facility] ([id number])5200 [facility] [address] MCV (RBC) [Entitic vol] 91 fL Normal 80-100 [facility] Comment on above: Performed By: #### C BCA, CMP ####[facility] ([id number])5200 [facility] [place] [address] Monocytes (Bld) [#/Vol] 0.6 10*3/uL Normal 0-0.9 [facility] Comment on above: Performed By: #### C BCA, CMP ####[facility] ([id number])5200 [facility] [place] [address] Monocytes/100 WBC (Bld) 8.9 % Normal [facility] Comment on above: Performed By: #### C BCA, CMP ####[facility] ([id number])5200 [facility] [place] [address] Neutrophils/100 WBC (Bld) 73.2 % Normal [facility] Comment on above: Performed By: #### C BCA, CMP ####[facility] ([id number])5200 [facility] [place] [address] Platelet mean volume (Bld) [Entitic vol] 7.0 fL Normal 7-12 [facility] Comment on above: Performed By: #### C BCA, CMP ####[facility] ([id number])5200 [facility] [place] [address] Platelets (Bld) [#/Vol] 235 10*3/uL Normal 150-450 [facility] Comment on above: Performed By: #### C BCA, CMP ####[facility] ([id number])5200 [facility] [place] [address] RBC COUNT 3.03 X10E12/L Low 3.80-5.20 [facility] Comment on above: Performed By: #### C BCA, CMP ####[facility] ([id number])5200 [place] [address] WBC (Bld) [#/Vol] 7.0 10*3/uL Normal 4.0-11.0 [facility] Comment on above: Performed By: #### C BCA, CMP ####[facility] ([id number])5200 [place] [address] COMPREHENSIVE METABOLIC PANE [place] 06-14-2024 Albumin [Mass/Vol] 3.2 g/dL Normal 3.2-5.3 [facility] Comment on above: Performed By: #### C BCA, CMP ####[place] [facility] ([id number])5200 [place] [address] ALP [Catalytic activity/Vol] 66 U/L Normal 39-130 [facility] Comment on above: Performed By: #### C BCA, CMP ####[facility] LAB ([id number])5[address] [place] [address] ALT [Catalytic activity/Vol] 14 U/L Normal 0-31 [facility] Comment on above: Performed By: #### C BCA, CMP ####[facility] ([id number])5[address] [place] [address] Anion gap [Moles/Vol] 6 mmol/L Normal 5-15 [facility] Comment on above: Performed By: #### C BCA, CMP ####[facility] ([id number])5[address] [place] [address] AST [Catalytic activity/Vol] 18 U/L Normal 0-41 [facility] Comment on above: Performed By: #### C BCA, CMP ####[facility] ([id number])5[address] [place] [address] Bilirubin [Mass/Vol] 0.5 mg/dL Normal 0.3-1.2 [facility] Comment on above: Performed By: #### C BCA, CMP ####[facility] ([id number])5200 [facility] [place] [address] Calcium [Mass/Vol] 8.9 mg/dL Normal 8.5-10.5 [facility] Comment on above: Performed By: #### C BCA, CMP ####[facility] ([id number])5200 [facility] [place] [address] Chloride [Moles/Vol] 106 mmol/L Normal 98-109 [facility] Comment on above: Performed By: #### C BCA, CMP ####[facility] ([id number])5200 [facility] [place] [address] CO2 [Moles/Vol] 28 mmol/L Normal 22-32 [facility] Comment on above: Performed By: #### C BCA, CMP ####[facility] ([id number])5200 [facility] [place] [address] Creatinine [Mass/Vol] 0.71 mg/dL Normal 0.40-1.00 [facility] Comment on above: Result Comment: METH OD TRACEABLE TO IDMS STANDARD Performed By: #### C BCA, CMP ####[facility] ([id number])5[address] [facility] [place] [address] eGFR (CKD-EPI) NON-RACE DEPENDENT >90 Normal >59 [facility] Comment on above: Result Comment: Repo rted eGFR is based on theCKD-EPI 2020 equation that doesnot use a race coefficient. Performed By: #### C BCA, CMP ####[facility] ([id number])5200 [facility] [address] Glucose [Mass/Vol] 101 mg/dL High 65-99 [facility] Comment on above: Performed By: #### C BCA, CMP ####[facility] ([id number])5[address] [facility] [place] [address] Potassium [Moles/Vol] 3.5 mmol/L Normal 3.5-5.0 [facility] Comment on above: Performed By: #### C BCA, CMP ####[facility] ([id number])5[address] [facility] [place] [address] Protein [Mass/Vol] 5.1 g/dL Low 6.0-8.0 [facility] Comment on above: Performed By: #### C BCA, CMP ####[facility] ([id number])5[address] [facility] [place] [address] Sodium [Moles/Vol] 140 mmol/L Normal 134-146 [facility] Comment on above: Performed By: #### C BCA, CMP ####[facility] ([id number])5[address] [place] [address] Urea nitrogen [Mass/Vol] 16 mg/dL Normal 5-23 [facility] Comment on above: Performed By: #### C BCA, CMP ####[facility] ([id number])5[address] [place] [address] 36on 06-13-2024 36 Patient called to cancel appointment this am with Dr. Moody, reports she is currently inpatient at [facility] and will need to reschedule at another time. I called infectious disease clinic and let them know of cancellation. Normal [facility] ANAEROBE CULTUREon 5 Bacteria identified Anaer cx Nom (Unsp spec) CULTURE RESULTS NO GROWTH 5 DAYS Normal [facility] Comment on above: Performed By: #### 6 35-3 ####[facility] LAB ([id number])[address] [facility], [address], [place] [address] Amikacin trough [Mass/Vol]on 06-13-2024 Amikacin, Trough, S <0.8 Normal <8.0 [facility] Comment on above: Result Comment: NOTE Test Performed by:[place] [id number] Director: Colten Sosa Ph.D.; CLIA# [id number] Performed By: #### 3 321-7 ####[facility] ([id number])5[address] [place] [address] CBC AND AUTO DIFFon 04-14-20 25 ABSOLUTE BASOPHIL 0.0 X10E9/L Normal 0.0-0.2 [facility] Comment on above: Performed By: #### C MP, CBCA ####[facility] ([id number])5[address] [place] [address] ABSOLUTE NEUTROPHIL 4.1 X10E9/L Normal 1.5-6.6 [facility] Comment on above: Performed By: #### C MP, CBCA ####[facility] ([id number])5[address] [place] [address] Basophils/100 WBC (Bld) 0.8 % Normal [facility] Comment on above: Performed By: #### C MP, CBCA ####[facility] ([id number])5[address] [place] [address] Eosinophils (Bld) [#/Vol] 0.5 10*3/uL High 0.0-0.4 [facility] Comment on above: Performed By: #### C MP, CBCA ####[facility] ([id number])[address] [place] [address] Eosinophils/100 WBC (Bld) 8.0 % Normal [facility] Comment on above: Performed By: #### C MP, CBCA ####[facility] ([id number])5[address] [place] [address] Erythrocyte distribution width (RBC) [Ratio] 19.1 % High 11.5-15.0 [facility] Comment on above: Performed By: #### C MP, CBCA ####[facility] ([id number])[address] [place] [address] Hematocrit (Bld) [Volume fraction] 28.5 % Low 35-47 [facility] Comment on above: Performed By: #### C MP, CBCA ####[facility] ([id number])[address] [place] [address] Hemoglobin (Bld) [Mass/Vol] 9.6 g/dL Low 11.7-15.5 [facility] Comment on above: Performed By: #### C MP, CBCA ####[facility] ([id number])5[address] [facility] [place] [address] Lymphocytes (Bld) [#/Vol] 0.9 10*3/uL Low 1.0-3.5 [facility] Comment on above: Performed By: #### C MP, CBCA ####[facility] ([id number])5[address] [facility] [place] [address] Lymphocytes/100 WBC (Bld) 14.2 % Normal [facility] Comment on above: Performed By: #### C MP, CBCA ####[facility] ([id number])5[address] [facility] [place] [address] MCH (RBC) [Entitic mass] 31.0 pg Normal 27-34 [facility] Comment on above: Performed By: #### C MP, CBCA ####[facility] ([id number])5[address] [facility] [place] [address] MCHC (RBC) [Mass/Vol] 33.8 g/dL Normal 32-36 [facility] Comment on above: Performed By: #### C MP, CBCA ####[facility] ([id number])5[address] [facility] [place] [address] MCV (RBC) [Entitic vol] 92 fL Normal 80-100 [facility] Comment on above: Performed By: #### C MP, CBCA ####[facility] ([id number])5200 [facility] [place] [address] Monocytes (Bld) [#/Vol] 0.6 10*3/uL Normal 0-0.9 [facility] Comment on above: Performed By: #### C MP, CBCA ####[facility] ([id number])5[address] [facility] [place] [address] Monocytes/100 WBC (Bld) 9.7 % Normal [facility] Comment on above: Performed By: #### C MP, CBCA ####[facility] ([id number])5200 [facility] [place] [address] Neutrophils/100 WBC (Bld) 67.3 % Normal [facility] Comment on above: Performed By: #### C MP, CBCA ####[facility] ([id number])5[address] [facility] [place] [address] Platelet mean volume (Bld) [Entitic vol] 7.1 fL Normal 7-12 [facility] Comment on above: Performed By: #### C MP, CBCA ####[facility] ([id number])5200 [facility] [place] [address] Platelets (Bld) [#/Vol] 250 10*3/uL Normal 150-450 [facility] Comment on above: Performed By: #### C MP, CBCA ####[facility] ([id number])5200 [facility] [place] [address] RBC COUNT 3.10 X10E12/L Low 3.80-5.20 [facility] Comment on above: Performed By: #### C MP, CBCA ####[facility] ([id number])5[address] [facility] [place] [address] WBC (Bld) [#/Vol] 6.1 10*3/uL Normal 4.0-11.0 [facility] Comment on above: Performed By: #### C MP, CBCA ####[facility] ([id number])5[address] [facility] [place] [address] COMPREHENSIVE METABOLIC PANE [place] 06-13-2024 Albumin [Mass/Vol] 3.5 g/dL Normal 3.2-5.3 [facility] Comment on above: Performed By: #### C MP, CBCA ####[facility] ([id number])5200 [facility] [place] [address] ALP [Catalytic activity/Vol] 76 U/L Normal 39-130 [facility] Comment on above: Performed By: #### C MP, CBCA ####[facility] ([id number])5[address] [place] [address] ALT [Catalytic activity/Vol] 14 U/L Normal 0-31 [facility] Comment on above: Performed By: #### C MP, CBCA ####[facility] ([id number])[address] [place] [address] Anion gap [Moles/Vol] 4 mmol/L Low 5-15 [facility] Comment on above: Performed By: #### C MP, CBCA ####[facility] LAB ([id number])[address] [place] [address] AST [Catalytic activity/Vol] 16 U/L Normal 0-41 [facility] Comment on above: Performed By: #### C MP, CBCA ####[facility] ([id number])[address] [place] [address] Bilirubin [Mass/Vol] 0.5 mg/dL Normal 0.3-1.2 [facility] Comment on above: Performed By: #### C MP, CBCA ####[facility] LAB ([id number])[address] [place] [address] Calcium [Mass/Vol] 9.1 mg/dL Normal 8.5-10.5 [facility] Comment on above: Performed By: #### C MP, CBCA ####[facility] ([id number])[address] [place] [address] Chloride [Moles/Vol] 107 mmol/L Normal 98-109 [facility] Comment on above: Performed By: #### C MP, CBCA ####[facility] LAB ([id number])[address] [place] [address] CO2 [Moles/Vol] 27 mmol/L Normal 22-32 [facility] Comment on above: Performed By: #### C MP, CBCA ####[facility] ([id number])[address] [place] [address] Creatinine [Mass/Vol] 0.66 mg/dL Normal 0.40-1.00 [facility] Comment on above: Result Comment: METH OD TRACEABLE TO IDMS STANDARD Performed By: #### C ADARSH CBCA ####[facility] LAB ([id number])[address] [place] [address] eGFR (CKD-EPI) NON-RACE DEPENDENT >90 Normal >59 [facility] Comment on above: Result Comment: Repo rted eGFR is based on theCKD-EPI 2020 equation that doesnot use a race coefficient. Performed By: #### C ADARSH, CBCA ####[facility] ([id number])5[address] [facility] [place] [address] Glucose [Mass/Vol] 92 mg/dL Normal 65-99 [facility] Comment on above: Performed By: #### C ADARSH, CBCA ####[facility] ([id number])5[address] [facility] [place] [address] Potassium [Moles/Vol] 3.7 mmol/L Normal 3.5-5.0 [facility] Comment on above: Performed By: #### C ADARSH CBCA ####[facility] ([id number])5200 [facility] [place] [address] Protein [Mass/Vol] 5.3 g/dL Low 6.0-8.0 [facility] Comment on above: Performed By: #### C ADARSH, CBCA ####[facility] ([id number])5200 [facility] [place] [address] Sodium [Moles/Vol] 138 mmol/L Normal 134-146 [facility] Comment on above: Performed By: #### C ADARSH, CBCA ####[facility] ([id number])5[address] [facility] [place] [address] Urea nitrogen [Mass/Vol] 16 mg/dL Normal 5-23 [facility] Comment on above: Performed By: #### C MP, CBCA ####[facility] ([id number])5[address] [facility] [place] [address] FUNGAL CULTUREon 06-13-2024 Fungus identified Cx Nom (Unsp spec) FUNGAL SMEAR NO FUNGAL ELEMENTS SEEN ON DIRECT SMEAR CULTURE RESULTS MYCOBACTERIUM ABSCESSUS GROUP DR. HERMAN LUI REQUESTS SUSCEPTIBILITY 06/29/24 SEE SEPARATE REPORT FOR SUSCEPTIBILITY 07/18/24 [facility] Comment on above: Performed By: #### 5 80-1 ####[facility] ([id number])[address] [facility], [place] [address] SEND OUT TESTon 06-13-2024 SENT TO [facility] Comment on above: Result Comment: [id number] [id number] SPECIMEN LJ SLANT FROM LEFT BREAST TISSUE [facility] TEST NAME: [facility] APPR O SUSCEPTIBILITY AND GENE RESISTANCE GENE TESTING [facility] TEST RESULT See separate report. View in OnBase or in EPIC. [facility] TISSUE CULTUREon 06-13-2024 Bacteria identified Aer cx Nom (Tiss) GRAM STAIN 1 to 9 WHITE BLOOD CELLS/LPF 0 SQUAMOUS EPITHELIAL CELLS/LPF NO ORGANISMS SEEN CULTURE RESULTS NO GROWTH 3 DAYS Normal [facility] Comment on above: Performed By: #### 6 27-0 ####[facility] ([id number])[address] [facility], [place] [address] CBC AND AUTO DIFFon 06-13-19 25 ABSOLUTE BASOPHIL 0.1 X10E9/L Normal 0.0-0.2 [facility] Comment on above: Performed By: #### C BCA, CMP ####[facility] ([id number])5[address] [place] [address] ABSOLUTE NEUTROPHIL 4.4 X10E9/L Normal 1.5-6.6 [facility] Comment on above: Performed By: #### C BCA, CMP ####[facility] ([id number])5[address] [place] [address] Basophils/100 WBC (Bld) 1.0 % [facility] Comment on above: Performed By: #### C BCA, CMP ####[facility] ([id number])5[address] [facility] [place] [address] Eosinophils (Bld) [#/Vol] 0.5 10*3/uL High 0.0-0.4 [facility] Comment on above: Performed By: #### C BCA, CMP ####[facility] ([id number])5200 [facility] [place] [address] Eosinophils/100 WBC (Bld) 7.5 % Normal [facility] Comment on above: Performed By: #### C BCA, CMP ####[facility] ([id number])5[address] [place] [address] Erythrocyte distribution width (RBC) [Ratio] 19.9 % High 11.5-15.0 [facility] Comment on above: Performed By: #### C BCA, CMP ####[facility] ([id number])[address] [place] [address] Hematocrit (Bld) [Volume fraction] 28.7 % Low 35-47 [facility] Comment on above: Performed By: #### C BCA, CMP ####[facility] ([id number])[address] [place] [address] Hemoglobin (Bld) [Mass/Vol] 9.7 g/dL Low 11.7-15.5 [facility] Comment on above: Performed By: #### C BCA, CMP ####[facility] ([id number])[address] [place] [address] Lymphocytes (Bld) [#/Vol] 0.9 10*3/uL Low 1.0-3.5 [facility] Comment on above: Performed By: #### C BCA, CMP ####[facility] ([id number])[address] [place] [address] Lymphocytes/100 WBC (Bld) 13.7 % Normal [facility] Comment on above: Performed By: #### C BCA, CMP ####[facility] ([id number])[address] [facility] [place] [address] MCH (RBC) [Entitic mass] 30.8 pg Normal 27-34 [facility] Comment on above: Performed By: #### C BCA, CMP ####[facility] ([id number])[address] [place] [address] MCHC (RBC) [Mass/Vol] 33.8 g/dL Normal 32-36 [facility] Comment on above: Performed By: #### C BCA, CMP ####[facility] ([id number])[address] [place] [address] MCV (RBC) [Entitic vol] 91 fL Normal 80-100 [facility] Comment on above: Performed By: #### C BCA, CMP ####[facility] ([id number])[address] [place] [address] Monocytes (Bld) [#/Vol] 0.7 10*3/uL Normal 0-0.9 [facility] Comment on above: Performed By: #### C BCA, CMP ####[facility] ([id number])[address] [place] [address] Monocytes/100 WBC (Bld) 10.4 % Normal [facility] Comment on above: Performed By: #### C BCA, CMP ####[facility] ([id number])[address] [place] [address] Neutrophils/100 WBC (Bld) 67.4 % Normal [facility] Comment on above: Performed By: #### C BCA, CMP ####[facility] ([id number])[address] [place] [address] Platelet mean volume (Bld) [Entitic vol] 7.0 fL Normal 7-12 [facility] Comment on above: Performed By: #### C BCA, CMP ####[facility] ([id number])[address] [place] [address] Platelets (Bld) [#/Vol] 260 10*3/uL Normal 150-450 [facility] Comment on above: Performed By: #### C BCA, CMP ####[facility] ([id number])[address] [place] [address] RBC COUNT 3.16 X10E12/L Low 3.80-5.20 [facility] Comment on above: Performed By: #### C BCA, CMP ####[facility] ([id number])5[address] [place] [address] WBC (Bld) [#/Vol] 6.5 10*3/uL Normal 4.0-11.0 [facility] Comment on above: Performed By: #### C BCA, CMP ####[facility] ([id number])5200 [place] [address] [address]PREHENSIVE METABOLIC PANE [place] 06-12-2024 Albumin [Mass/Vol] 3.6 g/dL Normal 3.2-5.3 [facility] Comment on above: Performed By: #### C BCA, CMP ####[facility] ([id number])5[address] [place] [address] ALP [Catalytic activity/Vol] 80 U/L Normal 39-130 [facility] Comment on above: Performed By: #### C BCA, CMP ####[facility] ([id number])5[address] [place] [address] ALT [Catalytic activity/Vol] 15 U/L Normal 0-31 [facility] Comment on above: Performed By: #### C BCA, CMP ####[facility] ([id number])5[address] [place] [address] Anion gap [Moles/Vol] 6 mmol/L Normal 5-15 [facility] Comment on above: Performed By: #### C BCA, CMP ####[facility] ([id number])[address] [place] [address] AST [Catalytic activity/Vol] 17 U/L Normal 0-41 [facility] Comment on above: Performed By: #### C BCA, CMP ####[facility] ([id number])5[address] [facility] [place] [address] Bilirubin [Mass/Vol] 0.5 mg/dL Normal 0.3-1.2 [facility] Comment on above: Performed By: #### C BCA, CMP ####[facility] ([id number])5[address] [facility] [place] [address] Calcium [Mass/Vol] 8.8 mg/dL Normal 8.5-10.5 [facility] Comment on above: Performed By: #### C BCA, CMP ####[facility] ([id number])5200 [facility] [place] [address] Chloride [Moles/Vol] 107 mmol/L Normal 98-109 [facility] Comment on above: Performed By: #### C BCA, CMP ####[facility] ([id number])5200 [facility] [place] [address] CO2 [Moles/Vol] 27 mmol/L Normal 22-32 [facility] Comment on above: Performed By: #### C BCA, CMP ####[facility] ([id number])5200 [facility] [place] [address] Creatinine [Mass/Vol] 0.63 mg/dL Normal 0.40-1.00 [facility] Comment on above: Result Comment: METH OD TRACEABLE TO IDMS STANDARD Performed By: #### C BCA, CMP ####[facility] ([id number])5200 [facility] [place] [address] eGFR (CKD-EPI) NON-RACE DEPENDENT >90 Normal >59 [facility] Comment on above: Result Comment: Repo rted eGFR is based on theCKD-EPI 2020 equation that doesnot use a race coefficient. Performed By: #### C BCA, CMP ####[facility] ([id number])5200 [facility] [place] [place] [address] Glucose [Mass/Vol] 90 mg/dL Normal 65-99 [facility] Comment on above: Performed By: #### C BCA, CMP ####[facility] ([id number])5200 [place] [address] Protein [Mass/Vol] 5.5 g/dL Low 6.0-8.0 [facility] Comment on above: Performed By: #### C BCA, CMP ####[facility] ([id number])5200 [place] [address] Sodium [Moles/Vol] 140 mmol/L Normal 134-146 [facility] Comment on above: Performed By: #### C BCA, CMP ####[facility] ([id number])5200 [place] [address] Urea nitrogen [Mass/Vol] 13 mg/dL Normal 5-23 [facility] Comment on above: Performed By: #### C BCA, CMP ####[facility] [facility] ([id number])[address] [place] [address] MAGNESIUMon 06-12-2024 Magnesium [Mass/Vol] 2.0 mg/dL Normal 1.8-2.6 [facility] Comment on above: Performed By: #### 1 9123-9 ####[facility] ([id number])[address] [place] [address] POTASSIUMon 06-12-2024 Potassium [Moles/Vol] 3.8 mmol/L Normal 3.5-5.0 [facility] Comment on above: Performed By: #### 2 823-3 ####[facility] ([id number])5[address] [place] [address] Potassium [Moles/Vol] 3.2 mmol/L Low 3.5-5.0 [facility] Comment on above: Performed By: #### 2 823-3 ####[facility] ([id number])[address] [place] [address] Performed By: #### C BCA, CMP ####[facility] ([id number])5[address] [place] [address] BLOOD CULTUREon 06-11-2024 Bacteria identified Aer cx Nom (Bld) CULTURE RESULTS NO GROWTH 5 DAYS Normal [facility] Bacteria identified Aer cx Nom (Bld) CULTURE RESULTS NO GROWTH 5 DAYS Normal [facility] CBC AND AUTO DIFFon 06-12-19 25 ABSOLUTE BASOPHIL 0.1 X10E9/L Normal 0.0-0.2 [facility] Comment on above: Performed By: #### C ADARSH, CBCA, ####[facility] ([id number])[address] [place] [address] ABSOLUTE NEUTROPHIL 4.7 X10E9/L Normal 1.5-6.6 [facility] Comment on above: Performed By: #### C ADARSH, CBCA, ####[facility] ([id number])[address] [place] [address] Basophils/100 WBC (Bld) 1.2 % Normal [facility] Comment on above: Performed By: #### C ADARSH, CBCA, ####[facility] ([id number])[address] [place] [address] Eosinophils (Bld) [#/Vol] 0.5 10*3/uL High 0.0-0.4 [facility] Comment on above: Performed By: #### C ADARSH, CBCA, ####[facility] ([id number])[address] [place] [address] Eosinophils/100 WBC (Bld) 6.9 % Normal [facility] Comment on above: Performed By: #### C ADARSH, CBCA, ####[facility] ([id number])[address] [place] [address] Erythrocyte distribution width (RBC) [Ratio] 20.1 % High 11.5-15.0 [facility] Comment on above: Performed By: #### C ADARSH, CBCA, ####[facility] ([id number])[address] [place] [address] Hematocrit (Bld) [Volume fraction] 29.2 % Low 35-47 [facility] Comment on above: Performed By: #### C MP, CBCA, ####[facility] ([id number])5[address] [facility] [place] [address] Hemoglobin (Bld) [Mass/Vol] 9.9 g/dL Low 11.7-15.5 [facility] Comment on above: Performed By: #### C MP, CBCA, ####[facility] ([id number])[address] [place] [address] Lymphocytes (Bld) [#/Vol] 1.1 10*3/uL Normal 1.0-3.5 [facility] Comment on above: Performed By: #### C MP, CBCA, ####[facility] ([id number])5[address] [facility] [place] [address] Lymphocytes/100 WBC (Bld) 15.8 % Normal [facility] Comment on above: Performed By: #### C MP, CBCA, ####[facility] ([id number])5200 [facility] [place] [address] MCH (RBC) [Entitic mass] 30.8 pg Normal 27-34 [facility] Comment on above: Performed By: #### C MP, CBCA, ####[facility] ([id number])[address] [place] [address] MCHC (RBC) [Mass/Vol] 33.9 g/dL Normal 32-36 [facility] Comment on above: Performed By: #### C MP, CBCA, ####[facility] ([id number])5200 [facility] [place] [address] MCV (RBC) [Entitic vol] 91 fL Normal 80-100 [facility] Comment on above: Performed By: #### C MP, CBCA, ####[facility] ([id number])[address] [place] [address] Monocytes (Bld) [#/Vol] 0.6 10*3/uL Normal 0-0.9 [facility] Comment on above: Performed By: #### C MP, CBCA, ####[facility] ([id number])[address] [place] [address] Monocytes/100 WBC (Bld) 8.8 % Normal [facility] Comment on above: Performed By: #### C MP, CBCA, ####[facility] ([id number])5[address] [facility] [place] [address] Neutrophils/100 WBC (Bld) 67.3 % Normal [facility] Comment on above: Performed By: #### C MP, CBCA, ####[facility] ([id number])5[address] [facility] [place] [address] Platelet mean volume (Bld) [Entitic vol] 7.3 fL Normal 7-12 [facility] Comment on above: Performed By: #### C MP, CBCA, ####[facility] ([id number])[address] [place] [address] Platelets (Bld) [#/Vol] 268 10*3/uL Normal 150-450 [facility] Comment on above: Performed By: #### C MP, CBCA, ####[facility] ([id number])5[address] [facility] [place] [address] RBC COUNT 3.21 X10E12/L Low 3.80-5.20 [facility] Comment on above: Performed By: #### C MP, CBCA, ####[facility] ([id number])5200 [facility] [place] [address] WBC (Bld) [#/Vol] 6.9 10*3/uL Normal 4.0-11.0 [facility] Comment on above: Performed By: #### C MP, CBCA, ####[facility] ([id number])5[address] [facility] [place] [address] ABSOLUTE BASOPHIL 0.1 X10E9/L Normal 0.0-0.2 [facility] Comment on above: Performed By: #### C BCA, CMP ####[facility] ([id number])5[address] [facility] [place] [address] ABSOLUTE NEUTROPHIL 5.7 X10E9/L Normal 1.5-6.6 [facility] Comment on above: Performed By: #### C BCA, CMP ####[facility] ([id number])[address] [place] [address] Basophils/100 WBC (Bld) 0.9 % Normal [facility] Comment on above: Performed By: #### C BCA, CMP ####[facility] ([id number])[address] [place] [address] Eosinophils (Bld) [#/Vol] 0.5 10*3/uL High 0.0-0.4 [facility] Comment on above: Performed By: #### C BCA, CMP ####[facility] ([id number])[address] [place] [address] Eosinophils/100 WBC (Bld) 6.2 % Normal [facility] Comment on above: Performed By: #### C BCA, CMP ####[facility] ([id number])[address] [place] [address] Erythrocyte distribution width (RBC) [Ratio] 20.0 % High 11.5-15.0 [facility] Comment on above: Performed By: #### C BCA, CMP ####[facility] ([id number])[address] [place] [address] Hematocrit (Bld) [Volume fraction] 30.0 % Low 35-47 [facility] Comment on above: Performed By: #### C BCA, CMP ####[facility] ([id number])5200 [facility] [place] [address] Hemoglobin (Bld) [Mass/Vol] 10.1 g/dL Low 11.7-15.5 [facility] Comment on above: Performed By: #### C BCA, CMP ####[facility] ([id number])[address] [place] [address] Lymphocytes (Bld) [#/Vol] 1.2 10*3/uL Normal 1.0-3.5 [facility] Comment on above: Performed By: #### C BCA, CMP ####[facility] ([id number])[address] [place] [address] Lymphocytes/100 WBC (Bld) 14.9 % Normal [facility] Comment on above: Performed By: #### C BCA, CMP ####[facility] ([id number])[address] [place] [address] MCH (RBC) [Entitic mass] 30.7 pg Normal 27-34 [facility] Comment on above: Performed By: #### C BCA, CMP ####[facility] ([id number])[address] [place] [address] MCHC (RBC) [Mass/Vol] 33.7 g/dL Normal 32-36 [facility] Comment on above: Performed By: #### C BCA, CMP ####[facility] ([id number])[address] [place] [address] MCV (RBC) [Entitic vol] 91 fL Normal 80-100 [facility] Comment on above: Performed By: #### C BCA, CMP ####[facility] ([id number])5[address] [place] [address] Monocytes (Bld) [#/Vol] 0.7 10*3/uL Normal 0-0.9 [facility] Comment on above: Performed By: #### C BCA, CMP ####[facility] ([id number])[address] [place] [address] Monocytes/100 WBC (Bld) 8.3 % Normal [facility] Comment on above: Performed By: #### C BCA, CMP ####[facility] ([id number])5[address] [facility] [place] [address] Neutrophils/100 WBC (Bld) 69.7 % Normal [facility] Comment on above: Performed By: #### C BCA, CMP ####[facility] ([id number])[address] [place] [address] Platelet mean volume (Bld) [Entitic vol] 7.1 fL Normal 7-12 [facility] Comment on above: Performed By: #### C BCA, CMP ####[facility] ([id number])[address] [place] [address] Platelets (Bld) [#/Vol] 264 10*3/uL Normal 150-450 [facility] Comment on above: Performed By: #### C BCA, CMP ####[facility] ([id number])[address] [place] [address] RBC COUNT 3.30 X10E12/L Low 3.80-5.20 [facility] Comment on above: Performed By: #### C BCA, CMP ####[facility] ([id number])[address] [place] [address] WBC (Bld) [#/Vol] 8.2 10*3/uL Normal 4.0-11.0 [facility] Comment on above: Performed By: #### C BCA, CMP ####[facility] ([id number])[address] [place] [address] COMPREHENSIVE METABOLIC PANE [place] 06-11-2024 Albumin [Mass/Vol] 3.6 g/dL Normal 3.2-5.3 [facility] Comment on above: Performed By: #### C MP, CBCA, 32162-8 ####[facility] ([id number])[address] [place] [address] ALP [Catalytic activity/Vol] 84 U/L Normal 39-130 [facility] Comment on above: Performed By: #### C MP, CBCA, ####[facility] ([id number])[address] [place] [address] ALT [Catalytic activity/Vol] 17 U/L Normal 0-31 [facility] Comment on above: Performed By: #### C ADARSH, CBCA, ####[facility] ([id number])[address] [place] [address] Anion gap [Moles/Vol] 7 mmol/L Normal 5-15 [facility] Comment on above: Performed By: #### C ADARSH, CBCA, ####[facility] ([id number])[address] [place] [address] AST [Catalytic activity/Vol] 20 U/L Normal 0-41 [facility] Comment on above: Performed By: #### C ADARSH CBCA, ####[facility] ([id number])[address] [place] [address] Bilirubin [Mass/Vol] 0.5 mg/dL Normal 0.3-1.2 [facility] Comment on above: Performed By: #### C ADARSH CBCA, ####[facility] ([id number])[address] [place] [address] Calcium [Mass/Vol] 9.1 mg/dL Normal 8.5-10.5 [facility] Comment on above: Performed By: #### C ADARSH CBCA, ####[facility] ([id number])[address] [place] [address] Chloride [Moles/Vol] 107 mmol/L Normal 98-109 [facility] Comment on above: Performed By: #### C ADARSH CBCA, ####[facility] ([id number])[address] [place] [address] CO2 [Moles/Vol] 26 mmol/L Normal 22-32 [facility] Comment on above: Performed By: #### C OFE ALTAMIRANO, ####[facility] ([id number])[address] [place] [address] Creatinine [Mass/Vol] 0.67 mg/dL Normal 0.40-1.00 [facility] Comment on above: Result Comment: METH OD TRACEABLE TO IDMS STANDARD Performed By: #### C OFE ALTAMIRANO, ####[facility] ([id number])5200 [facility] [place] [address] eGFR (CKD-EPI) NON-RACE DEPENDENT >90 Normal >59 [facility] Comment on above: Result Comment: Repo rted eGFR is based on theCKD-EPI 2020 equation that doesnot use a race coefficient. Performed By: #### C OFE ALTAMIRANO, ####[facility] ([id number])5[address] [facility] [place] [address] Glucose [Mass/Vol] 82 mg/dL Normal 65-99 [facility] Comment on above: Performed By: #### C OFE ALTAMIRANO, ####[facility] ([id number])5[address] [facility] [place] [address] Potassium [Moles/Vol] 3.5 mmol/L Normal 3.5-5.0 [facility] Comment on above: Performed By: #### C OFE ALTAMIRANO, ####[facility] ([id number])5[address] [facility] [place] [address] Protein [Mass/Vol] 5.7 g/dL Low 6.0-8.0 [facility] Comment on above: Performed By: #### C OFE ALTAMIRANO, ####[facility] ([id number])5200 [facility] [place] [address] Sodium [Moles/Vol] 140 mmol/L Normal 134-146 [facility] Comment on above: Performed By: #### C OFE ALTAMIRANO, ####[facility] ([id number])[address] [place] [address] Urea nitrogen [Mass/Vol] 11 mg/dL Normal 5-23 [facility] Comment on above: Performed By: #### C MP, CBCA, 47038-1 ####[facility] ([id number])[address] [place] [address] Albumin [Mass/Vol] 3.8 g/dL Normal 3.2-5.3 [facility] Comment on above: Performed By: #### C BCA, CMP ####[facility] ([id number])[address] [place] [address] ALP [Catalytic activity/Vol] 87 U/L Normal 39-130 [facility] Comment on above: Performed By: #### C BCA, CMP ####[facility] ([id number])[address] [place] [address] ALT [Catalytic activity/Vol] 18 U/L Normal 0-31 [facility] Comment on above: Performed By: #### C BCA, CMP ####[facility] ([id number])[address] [place] [address] Anion gap [Moles/Vol] 6 mmol/L Normal 5-15 [facility] Comment on above: Performed By: #### C BCA, CMP ####[facility] ([id number])[address] [place] [address] AST [Catalytic activity/Vol] 21 U/L Normal 0-41 [facility] Comment on above: Performed By: #### C BCA, CMP ####[facility] ([id number])[address] [place] [address] Bilirubin [Mass/Vol] 0.4 mg/dL Normal 0.3-1.2 [facility] Comment on above: Performed By: #### C BCA, CMP ####[facility] ([id number])[address] [place] [address] Calcium [Mass/Vol] 9.4 mg/dL Normal 8.5-10.5 [facility] Comment on above: Performed By: #### C BCA, CMP ####[facility] ([id number])5[address] [facility] [place] [address] Chloride [Moles/Vol] 106 mmol/L Normal 98-109 [facility] Comment on above: Performed By: #### C BCA, CMP ####[facility] ([id number])5[address] [facility] [place] [address] CO2 [Moles/Vol] 28 mmol/L Normal 22-32 [facility] Comment on above: Performed By: #### C BCA, CMP ####[facility] ([id number])[address] [place] [address] Creatinine [Mass/Vol] 0.72 mg/dL Normal 0.40-1.00 [facility] Comment on above: Result Comment: METH OD TRACEABLE TO IDMS STANDARD Performed By: #### C BCA, CMP ####[facility] ([id number])[address] [place] [address] eGFR (CKD-EPI) NON-RACE DEPENDENT >90 Normal >59 [facility] Comment on above: Result Comment: Repo rted eGFR is based on theCKD-EPI 2020 equation that doesnot use a race coefficient. Performed By: #### C BCA, CMP ####[facility] ([id number])5200 [facility] [place] [address] Glucose [Mass/Vol] 97 mg/dL Normal 65-99 [facility] Comment on above: Performed By: #### C BCA, CMP ####[facility] ([id number])5200 [facility] [place] [address] Potassium [Moles/Vol] 3.3 mmol/L Low 3.5-5.0 [facility] Comment on above: Performed By: #### C BCA, CMP ####[facility] ([id number])5200 [facility] [place] [address] Protein [Mass/Vol] 6.0 g/dL Normal 6.0-8.0 [facility] Comment on above: Performed By: #### C BCA, CMP ####[facility] ([id number])5[address] [place] [address] Sodium [Moles/Vol] 140 mmol/L Normal 134-146 [facility] Comment on above: Performed By: #### C BCA, CMP ####[facility] ([id number])5[address] [place] [address] Urea nitrogen [Mass/Vol] 14 mg/dL Normal 5-23 [facility] Comment on above: Performed By: #### C BCA, CMP ####[facility] ([id number])5200 [place] [address] MAGNESIUMon 06-11-2024 Magnesium [Mass/Vol] 1.6 mg/dL Low 1.8-2.6 [facility] Comment on above: Performed By: #### C MP, CBCA, 17567-2 ####[facility] ([id number])5[address] [place] [address] SUPERFICIAL WOUND CULTUREon 06-11-2024 Bacteria identified Aer cx Nom (Wound) GRAM STAIN 1 to 9 WHITE BLOOD CELLS/LPF 0 to 1 SQUAMOUS EPITHELIAL CELLS/LPF NO ORGANISMS SEEN CULTURE RESULTS RARE NORMAL SKIN EMILIE Normal [facility] Comment on above: Performed By: #### 6 32-0 ####[facility] ([id number])[address] [facility], [address], [place] [address] 36on 06-08-2024 36 Pt is wondering if s he still needs weekly Amikacin levels as well as there is concern for a spot above wound that is red and hot to the touch there is a white pimple looking bump. Pt reports picture in [facility] for you to review. Normal [facility] 36on 06-07-2024 36 RN called to request most recent labs be faxed to [facility] ID. Fax number confirmed Normal [facility] Glucose Glucometer (BldC) [M ass/Vol]Ordered By: Aarti Hope on 06-03-2024 Glucose [Mass/Vol] Capillary blood glucose measurement by glucometer (mass/volume) [facility] Comment on above: Random Glucose Refer ence Range is dependent on time and content of last meal. Glucose of more than 200 mg/dL in a nonstressed, ambulatory subject supports the diagnosis of Diabetes Mellitus. Glucose Poct Glucometerson 0 06-03-2024 Glucose [Mass/Vol] 98 mg/dL Normal [facility] Comment on above: Result Comment: [place] om Glucose Reference Range is dependent on time and content of last meal. Glucose of more than 200 mg/dL in a nonstressed, ambulatory subject supports the diagnosis of Diabetes Mellitus. PERFORMED BY: [place] [address] [place] [address] PATHOLOGIST SEWER CONNECTOR MARIA A WINTER M.D. Performed By: #### G SETH #### Point of Care testing , IGP,APTIMA HPV,AGE GDLNon AGE GDLN ACOG TESTING Note . NOM S [facility] Comment on above: TESTS RESULT FLAG U NITS REF RANGE LAB Clinician Provided Cytology Information Source.............Vagina No. of containers..01 ThinPrep Vial Age Algo ACOG Christie... FLAG LEGEND: L-Low Normal,H-High Normal,LL-Alert Low,HH-Alert High <-Panic Low,>-Panic High,A-Abnormal,AA-Critical Abnormal Performed at: 01 =[facility] [address] [place] [address] Apolonia Mayorga MD, HPV APTIMA Negative Negative [facility] Comment on above: This nucleic acid am plification test detects fourteen high- risk HPV types (16,18,31,33,35,39,45,51,52,56,58,59,66,68) without differentiation. Performed at: =G - [facility] [address] [facility], [place] [id number] Internship: Apolonia Mayorga MD, Phone: [phone] Performed at: [facility] [address] [place] [id number] Internship: Acosta Box MD, Phone: [phone] IGP, APTIMA HPV, RFX 16/18,45 Note . [facility] Comment on above: TESTS RESULT FLAG UN ITS REF RANGE LAB DIAGNOSIS: 02 NEGATIVE FOR INTRAEPITHELIAL LESION OR MALIGNANCY. Specimen adequacy: 02 Satisfactory for evaluation. Performed by: Karina Goodwin, Locker Attendant (ASCP) . 02 Note: Note 03 The [...] High,A-Abnormal,AA-Critical Abnormal Performed at: 02 [facility] [address] [place] [address] Acosta Box MD, 03 WB [facility] [address] [address] Apolonia Mayorga MD, [facility] PET tumor subq tx strat sb-m ton 06-03-2024 PET tumor subq tx strat sb-mt [facility] [place] [address] Nuclear Medicine Report Signed Patient: Ike Flannery MR#: [id number] : 1970 Acct:[id number] Age/Sex: 53 / F ADM Date: 06/03/24 Loc: Room: Type: [facility] Attending Dr: Aarti Hope MD Copies to: [...] Fortino Tate M.D.06/03/2024 12:40 PM Dictation Location: [place] [address] Transcribed By: [facility] 06/03/24 1240 Dictated By: Fortino Tate MD 06/03/24 1216 Signed By: 06/03/24 1240 Normal [facility] Documentationon 06-01-2024 Documentation [id number] Ike Flannery 1970 F Date Provider Department Center 06/01/2024 1045-AVI TOBAR [facility] Family History Adopted: Yes Problem Relation Age of Onset Heart attack Father Family Status - Relation Status Age at Father Normal [facility] Orders Onlyon 06-01-2024 Orders Only [id number] Ike Flannery 1970 F Date Provider Department Center 06/01/2024 258-JOSSY MOODY [facility] Family History Adopted: Yes Problem Relation Age of Onset Heart attack Father Family Status - Relation Status Age at Father Normal [facility] Urinalysis macro (dipstick) panel (U)on 06-01-2024 Bilirubin, UA Negative Negative - 4(70) +++ mg/dL [facility] Blood, UA Negative Negative - 50 Jerod/mcL [facility] Clarity, UA Clear [facility] Color, UA Yellow [facility] Glucose, UA Negative Negative - 1999(110) ++++ mg/dL [facility] Interpretation and review of laboratory results Abnormal [facility] Ketones, UA Positive Negative - 160(16) ++++ mg/dL [facility] Comment on above: trace Leukocytes, UA Negative Negative - 500+++ Sofya/mcL [facility] Nitrite, UA Negative Negative - Positive [facility] pH, UA 6.5 5 - 9 [facility] Protein, UA Negative Negative - 1999(20) ++++ mg/dL [facility] Spec Grav, UA 1.015 1 - 1.03 [facility] care Urobilinogen, UA 0.2 0.2 - 12 mg/dL [facility] Office Visiton 05-31-2024 Follow-up visit [id number] Ike Flannery Yumi 1970 F [facility] Provider Department Center 05/31/2024 [id number] ATWOOD C ALGY Anthony Heal Family History Adopted: Yes Problem Relation Age of Onset Heart attack Father Family Status - Relation Status Age at Father Level of Service:22972 [place] OFFICE/OUTPATIENT NEW MODERATE MDM 45 MINUTES Reason for Visit and Comments: New Patient [632] - Tetracycline therapy Doxy testing Normal [facility] Orders Onlyon 05-30-2024 Orders Only [id number] Ike Flannery Yumi 1970 Provider Department Center 05/30/2024 [id number], HISTORICAL RHC RHEUM Anthony Heal Family History Adopted: Yes Problem Relation Age of Onset Heart attack Father Family Status - Relation Status Age at Father Normal [facility] 30on 05-27-2024 30 The patient is Moderately Stable - Low risk of patient condition declining or worsening The patient's goals for the shift include Comfort, rest The clinical goals for the shift include VSS,rest Pain - Adult Add All Verbalizes/displays adequate comfort level or baseline comfort level Add Today at 010 - Progressing by Ravinder Escobar RN Add Flowsheets Taken today at 010 Verbalizes/displays adequate comfort level or baseline comfort level Encourage patient to monitor pain and request assistance;Administer analgesics based on type and severity of pain and evaluate response;Assess pain using appropriate pain scale;Implement non-pharmacological measures as appropriate and evaluate response Safety - Adult Add All Free from fall injury Add Today at 010 - Progressing by Ravinder Escobar RN Add [...] conditions and prevent exacerbation or deterioration Normal [facility] CBC WITH AUTO DIFFERENTIALon 05-27-2024 Erythrocyte distribution width (RBC) [Ratio] 19.1 % High 11.5-15.0 [facility] Comment on above: Performed By: #### L [id number] #### [facility] ([facility]) [address] [place] [address] ERYTHROCYTE MEAN CORPUSCULAR HEMOGLOBIN CONCENTRATION (G/DL) BY AUTOMATED 32.9 g/dL Normal 32.0-35.0 [facility] Comment on above: Performed By: #### L [id number] #### [facility] ([facility]) [address] [place] [address] Hematocrit (Bld) [Volume fraction] 22.5 % Low 36.0-45.0 [facility] Comment on above: Performed By: #### L [id number] #### [facility] ([facility]) [address] [place] [address] Hemoglobin (Bld) [Mass/Vol] 7.4 g/dL Low 12.0-15.0 [facility] Comment on above: Performed By: #### L [id number] #### [facility] ([facility]) [address] [facility] [place] [address] IMMATURE PLATELET FRACTION % 2.7 % Normal 0.8-6.3 [facility] Comment on above: Performed By: #### L [id number] #### [facility] ([facility]) [address] [place] [address] MCH (RBC) [Entitic mass] 29.7 pg Normal 27.0-33.0 [facility] Comment on above: Performed By: #### L [id number] #### [facility] ([facility]) [address] [place] [address] MCV (RBC) [Entitic vol] 90.4 fL Normal 82.0-98.0 [facility] Comment on above: Performed By: #### L [id number] #### [facility] ([facility]) [address] [place] [address] NRBC (PER 100 WBCS) BY AUTOMATED COUNT 0.0 % Normal 0 [facility] Comment on above: Performed By: #### L [id number] #### [facility] ([facility]) [address] [place] [address] PLATELETS (10*3/UL) IN BLOOD AUTOMATED COUNT 126 10*3/uL Low 150-400 [facility] Comment on above: Performed By: #### L [id number] #### [facility] ([facility]) [address] [place] [address] RBC (Bld) [#/Vol] 2.49 10*6/uL Low 3.80-5.00 [facility] Comment on above: Performed By: #### L [id number] #### [facility] ([facility]) [address] [place] [address] WBC (Bld) [#/Vol] 2.53 10*3/uL Low 4.00-10.60 [facility] Comment on above: Performed By: #### L [id number] #### [facility] ([facility]) [address] [place] [address] COMPREHENSIVE METABOLIC PANE [place] 05-27-2024 Albumin [Mass/Vol] 3.1 g/dL Low 3.5-5.7 [facility] Comment on above: Performed By: #### L [id number] #### [facility] ([facility]) [address] [place] [address] ALP [Catalytic activity/Vol] 125 U/L High 34-104 [facility] Comment on above: Performed By: #### L [id number] #### [facility] ([facility] [address] [place] [address] ALT [Catalytic activity/Vol] 66 U/L High 7-52 [facility] Comment on above: Performed By: #### L [id number] #### [facility] ([facility]) [address] [place] [address] Anion gap [Moles/Vol] 6 mmol/L Low 7-20 [facility] Comment on above: Performed By: #### L [id number] #### [facility] ([facility]) [address] [place] [address] AST [Catalytic activity/Vol] 53 U/L High 13-39 [facility] Comment on above: Performed By: #### L [id number] #### [facility] ([facility]) [address] [place] [address] Bilirubin [Mass/Vol] 0.5 mg/dL Normal 0.3-1.0 [facility] Comment on above: Performed By: #### L [id number] #### [facility] ([facility]) [address] [place] [address] Calcium [Mass/Vol] 8.4 mg/dL Low 8.6-10.3 [facility] Comment on above: Performed By: #### L [id number] #### [facility] ([facility]) [address] [place] [address] Chloride [Moles/Vol] 110 mmol/L High 98-107 [facility] Comment on above: Performed By: #### L [id number] #### [facility] ([facility]) [address] [place] [address] CO2 [Moles/Vol] 30 mmol/L Normal 21-31 [facility] Comment on above: Performed By: #### L [id number] #### [facility] ([facility]) [address] [place] [address] Creatinine [Mass/Vol] 0.50 mg/dL Low 0.60-1.20 [facility] Comment on above: Performed By: #### L [id number] #### [facility] ([facility]) [address] [place] [address] GLOMERULAR FILTRATION RATE ML/MIN/1.73 SQ M.PREDICTED 112.1 mL/min/1.73m*2 Normal >60.0 [facility] Comment on above: Result Comment: The [facility]???s estimated glomerular filtration rate (eGFR) will no [...] group of individuals. Performed By: #### L [id number] #### [facility] ([facility]) [address] [place] [address] Glucose [Mass/Vol] 83 mg/dL Normal 70-100 [facility] Comment on above: Performed By: #### L [id number] #### [facility] ([facility]) [address] [place] [address] Potassium [Moles/Vol] 3.3 mmol/L Low 3.5-5.1 [facility] Comment on above: Performed By: #### L [id number] #### [facility] ([facility]) [address] [place] [address] Protein [Mass/Vol] 5.2 g/dL Low 6.0-8.3 [facility] Comment on above: Performed By: #### L [id number] #### [facility] ([facility]) [address] [place] [address] Sodium [Moles/Vol] 143 mmol/L Normal 136-145 [facility] Comment on above: Performed By: #### L [id number] #### [facility] ([facility]) [address] [place] [address] Urea nitrogen [Mass/Vol] 5 mg/dL Low 7-25 [facility] Comment on above: Performed By: #### L [id number] #### [facility] ([facility]) [address] [place] [address] UREA NITROGEN/CREATININE (MASS RATIO) IN SER/PLAS 10.0 Normal [facility] Comment on above: Performed By: #### L [id number] #### [facility] ([facility]) [address] [place] [address] Documentationon 05-27-2024 Documentation [id number] Ike Flanneyr 1970 F Date Provider Department Center 05/27/2024 [id number] [facility] Spe Pha Comprehensiv Family History Adopted: Yes Problem Relation Age of Onset Heart attack Father Family Status - Relation Status Age at Father Reason for Visit and Comments: Specialty Pharmacy note. [facility] [Other] Normal [facility] MANUAL DIFFERENTIALon 2024 BASOPHILS (10*3/UL) IN BLOOD BY CALCULATION 0.00 10*3/uL Normal 0.00-0.20 [facility] Comment on above: Performed By: #### L [id number] ####[facility] ([facility])[address] [place] [address] BASOPHILS/100 LEUKOCYTES IN BLOOD BY AUTOMATED COUNT 0.0 % Normal 0.0-1.0 [facility] Comment on above: Performed By: #### L [id number] ####[facility] ([facility])[address] [place] [address] EOSINOPHILS (10*3/UL) IN BLOOD BY CALCULATION 0.10 10*3/uL Normal 0.00-0.50 [facility] Comment on above: Performed By: #### L [id number] ####[facility] ([facility])[address] [place] [address] EOSINOPHILS/100 LEUKOCYTES IN BLOOD BY AUTOMATED COUNT 4.0 % Normal 0.0-6.0 [facility] Comment on above: Performed By: #### L [id number] ####[facility] ([facility])[address] [place] [address] IMMATURE GRANULOCYTES (10*3/UL) IN BLOOD BY CALCULATION 0.01 10*3/uL Normal 0.00-0.20 [facility] Comment on above: Performed By: #### L [id number] ####[facility] ([facility])[address] [place] [address] IMMATURE GRANULOCYTES/100 LEUKOCYTES IN BLOOD BY AUTOMATED COUNT 0.4 % Normal 0.0-1.0 [facility] Comment on above: Performed By: #### L [id number] ####[facility] ([facility])[address] [place], [place] [address] LYMPHOCYTES (10*3/UL) IN BLOOD BY CALCULATION 0.83 10*3/uL Low 1.20-4.00 [facility] Comment on above: Performed By: #### L [id number] ####[facility] ([facility])[address] [place] [address] LYMPHOCYTES/100 LEUKOCYTES IN BLOOD BY AUTOMATED COUNT 32.7 % Normal 20.0-45.0 [facility] Comment on above: Performed By: #### L [id number] ####[facility] ([facility])[address] [place] [address] MONOCYTES (10*3/UL) IN BLOOD BY CALCUATION 0.20 10*3/uL Normal 0.10-1.00 [facility] Comment on above: Performed By: #### L [id number] ####[facility] ([facility])[address] [place] [address] MONOCYTES/100 LEUKOCYTES IN BLOOD BY AUTOMATED COUNT 8.0 % Normal 5.0-12.0 [facility] Comment on above: Performed By: #### L [id number] ####[facility] ([facility])[address] [place] [address] NEUTROPHILS (10*3/UL) IN BLOOD BY CALCULATION 1.4 10*3/uL Low 1.6-7.6 [facility] Comment on above: Performed By: #### L [id number] ####[facility] ([facility])[address] [place] [address] NEUTROPHILS/100 LEUKOCYTES IN BLOOD BY AUTOMATED COUNT 55.3 % Normal 40.0-72.0 [facility] Comment on above: Performed By: #### L [id number] ####[facility] ([facility])[address] [place] [address] NUCLEATED RED BLOOD CELLS IN BLOOD BY LIGHT MICROSCOPY Present Normal [facility] Comment on above: Performed By: #### L [id number] ####[facility] ([facility])[address] [place] [address] PLASMA CELLS/100 LEUKOCYTES IN BLOOD 0 % Normal 0 [facility] Comment on above: Performed By: #### L [id number] ####[facility] ([facility])[address] [place] [address] PLATELETS GIANT PRESENCE IN BLOOD BY LIGHT MICROSCOPY Present Normal [facility] Comment on above: Performed By: #### L [id number] ####[facility] ([facility])[address] [place] [address] VARIANT LYMPHOCYTES (10*3/UL) IN BLOOD BY CALCULATION 0.00 10*3/uL Normal 0.00 [facility] Comment on above: Performed By: #### L [id number] ####[facility] ([facility])[address] [place] [address] VARIANT LYMPHOCYTES/100 LEUKOCYTES IN BLOOD CELLAVISION 0.0 % Normal 0.0-0.0 [facility] Comment on above: Performed By: #### L [id number] ####[facility] ([facility])[address] [place] [address] Orders Onlyon 05-27-2024 Orders Only [id number] Ike Flannery 1970 F Date Provider Department Center 05/27/2024 [id number] ATWOOD [facility] ALGY Anthony Heal Family History Adopted: Yes Problem Relation Age of Onset Heart attack Father Family Status - Relation Status Age at Father Normal [facility] 30on 05-26-2024 30 The patient is Moderately [...] appropriate; follow up with wound care outpatient. [facility] BASIC METABOLIC PANELon 05-01 Anion gap [Moles/Vol] 7 mmol/L Normal 7-20 [facility] Comment on above: Performed By: #### L [id number] #### [facility] ([facility]) [address] [place] [address] Calcium [Mass/Vol] 8.1 mg/dL Low 8.6-10.3 [facility] Comment on above: Performed By: #### L [id number] #### [facility] ([facility]) [address] [place] [address] Chloride [Moles/Vol] 110 mmol/L High 98-107 [facility] Comment on above: Performed By: #### L [id number] #### [facility] ([facility]) [address] [place] [address] CO2 [Moles/Vol] 28 mmol/L Normal 21-31 [facility] Comment on above: Performed By: #### L [id number] #### [facility] ([facility]) [address] [place] [address] Creatinine [Mass/Vol] 0.56 mg/dL Low 0.60-1.20 [facility] Comment on above: Performed By: #### L [id number] #### [facility] ([facility]) [address] [place] [address] GLOMERULAR FILTRATION RATE ML/MIN/1.73 SQ M.PREDICTED 109.1 mL/min/1.73m*2 Normal >60.0 [facility] Comment on above: Result Comment: The [facility]???s estimated glomerular filtration rate (eGFR) will no [...] group of individuals. Performed By: #### L [id number] #### [facility] ([facility]) [address] [place] [address] Glucose [Mass/Vol] 79 mg/dL Normal 70-100 [facility] Comment on above: Performed By: #### L [id number] #### [facility] ([facility]) [address] [place] [address] Potassium [Moles/Vol] 3.4 mmol/L Low 3.5-5.1 [facility] Comment on above: Performed By: #### L [id number] #### [facility] ([facility]) [address] [place] [address] Sodium [Moles/Vol] 142 mmol/L Normal 136-145 [facility] Comment on above: Performed By: #### L [id number] #### [facility] ([facility]) [address] [place] [address] Urea nitrogen [Mass/Vol] 7 mg/dL Normal 7-25 [facility] Comment on above: Performed By: #### L [id number] #### [facility] ([facility]) [address] [place] [address] UREA NITROGEN/CREATININE (MASS RATIO) IN SER/PLAS 12.5 Normal [facility] Comment on above: Performed By: #### L [id number] #### [facility] ([facility]) [address] [place] [address] CBCon 05-26-2024 Erythrocyte distribution width (RBC) [Ratio] 18.9 % High 11.5-15.0 [facility] Comment on above: Performed By: #### L [id number] #### [facility] ([facility]) [address] [place] [address] ERYTHROCYTE MEAN CORPUSCULAR HEMOGLOBIN CONCENTRATION (G/DL) BY AUTOMATED 33.6 g/dL Normal 32.0-35.0 [facility] Comment on above: Performed By: #### L [id number] #### [facility] ([facility]) [address] [place] [address] Hematocrit (Bld) [Volume fraction] 23.2 % Low 36.0-45.0 [facility] Comment on above: Performed By: #### L [id number] #### [facility] ([facility]) [address] [place] [address] Hemoglobin (Bld) [Mass/Vol] 7.8 g/dL Low 12.0-15.0 [facility] Comment on above: Performed By: #### L [id number] #### [facility] ([facility]) [address] [place] [address] MCH (RBC) [Entitic mass] 29.9 pg Normal 27.0-33.0 [facility] Comment on above: Performed By: #### L [id number] #### [facility] ([facility]) [address] [place] [address] MCV (RBC) [Entitic vol] 88.9 fL Normal 82.0-98.0 [facility] Comment on above: Performed By: #### L [id number] #### [facility] ([facility]) [address] [place] [address] PLATELETS (10*3/UL) IN BLOOD AUTOMATED COUNT 114 10*3/uL Low 150-400 [facility] Comment on above: Performed By: #### L [id number] #### [facility] ([facility]) [address] [place] [address] RBC (Bld) [#/Vol] 2.61 10*6/uL Low 3.80-5.00 [facility] Comment on above: Performed By: #### L [id number] #### [facility] ([facility]) [address] [place] [address] WBC (Bld) [#/Vol] 2.08 10*3/uL Low 4.00-10.60 [facility] Comment on above: Performed By: #### L [id number] #### [facility] ([facility]) [address] [place] [address] 30on 05-25-2024 30 The patient is Moderately Stable - Low risk of patient condition declining or worsening The patient's goals for the shift include comfort and safety The clinical goals for the shift include VSS, pain control Problem: Pain - Adult Goal: Verbalizes/displays adequate comfort level or baseline comfort level Outcome: Progressing Flowsheets (Taken 05/25/20242340) Verbalizes/displays adequate comfort level or baseline comfort level: Encourage patient to monitor pain and request assistance Assess pain using appropriate pain scale Administer analgesics based on type and severity of pain and evaluate response Problem: Safety - Adult Goal: Free from fall injury Outcome: Progressing Flowsheets (Taken 05/25/20242340) Free from fall injury: Assess patient frequently for physical needs [place] fall precautions as indicated by assessment Problem: [...] maintained or improved Outcome: Progressing Flowsheets (Taken 05/25/2024 2341) Care Plan - Patient's Chronic Conditions and Co-Morbidity Symptoms are Monitored and Maintained or Improved: Monitor and assess patient's chronic conditions and comorbid symptoms for stability, deterioration, or improvement Normal [facility] 30 The patient is Moderately Stable - Low risk of patient condition declining or worsening The patient's goals for the shift include comfort The clinical goals for the shift include stable vitals and pain management Over the shift, the patient did not make progress toward the following goals. Barriers to progression include . Recommendations to address these barriers include . Normal [facility] AMIKACIN LEVEL, RANDOMon AMIKACIN (UG/ML) IN SER/PLAS 0.9 ug/mL Normal 0.0-40.0 [facility] Comment on above: Result Comment: Test Performed by [email or web address] [address] [place] [address] - Released 05/26/2024 05:17 Performed By: #### L [id number] #### [facility] [address] [place] [address] BASIC METABOLIC PANELon - Anion gap [Moles/Vol] 11 mmol/L Normal 7-20 [facility] Comment on above: Performed By: #### L [id number] #### [facility] ([facility]) [address] [place] [address] Calcium [Mass/Vol] 8.0 mg/dL Low 8.6-10.3 [facility] Comment on above: Performed By: #### L [id number] #### [facility] ([facility]) [address] [place] [address] Chloride [Moles/Vol] 105 mmol/L Normal 98-107 [facility] Comment on above: Performed By: #### L [id number] #### [facility] ([facility]) [address] [place] [address] CO2 [Moles/Vol] 26 mmol/L Normal 21-31 [facility] Comment on above: Performed By: #### L [id number] #### [facility] ([facility]) [address] [place] [address] Creatinine [Mass/Vol] 0.69 mg/dL Normal 0.60-1.20 [facility] Comment on above: Performed By: #### L [id number] #### [facility] ([facility]) [address] [place] [address] GLOMERULAR FILTRATION RATE ML/MIN/1.73 SQ M.PREDICTED 103.7 mL/min/1.73m*2 Normal >60.0 [facility] Comment on above: Result Comment: The [facility]???s estimated glomerular filtration rate (eGFR) will no [...] group of individuals. Performed By: #### L [id number] #### [facility] ([facility]) [address] [place] [address] Glucose [Mass/Vol] 79 mg/dL Normal 70-100 [facility] Comment on above: Performed By: #### L [id number] #### [facility] ([facility]) [address] [place] [address] Potassium [Moles/Vol] 3.5 mmol/L Normal 3.5-5.1 [facility] Comment on above: Performed By: #### L [id number] #### [facility] ([facility]) [address] [facility] [place] [place] [address] Sodium [Moles/Vol] 138 mmol/L Normal 136-145 [facility] Comment on above: Performed By: #### L [id number] #### [facility] ([facility]) [address] [place] [address] Urea nitrogen [Mass/Vol] 8 mg/dL Normal 7-25 [facility] Comment on above: Performed By: #### L [id number] #### [facility] ([facility]) [address] [place] [address] UREA NITROGEN/CREATININE (MASS RATIO) IN SER/PLAS 11.6 Normal [facility] Comment on above: Performed By: #### L [id number] #### [facility] ([facility]) [address] [place] [address] CBCon 05-25-2024 Erythrocyte distribution width (RBC) [Ratio] 19.3 % High 11.5-15.0 [facility] Comment on above: Performed By: #### L [id number] #### [facility] [facility] ([facility]) [address] [place] [address] ERYTHROCYTE MEAN CORPUSCULAR HEMOGLOBIN CONCENTRATION (G/DL) BY AUTOMATED 32.9 g/dL Normal 32.0-35.0 [facility] Comment on above: Performed By: #### L [id number] #### [facility] ([facility]) [address] [place] [address] Hematocrit (Bld) [Volume fraction] 22.8 % Low 36.0-45.0 [facility] Comment on above: Performed By: #### L [id number] #### [facility] ([facility]) [address] [place] [address] Hemoglobin (Bld) [Mass/Vol] 7.5 g/dL Low 12.0-15.0 [facility] Comment on above: Performed By: #### L [id number] #### [facility] ([facility]) [address] [place] [address] MCH (RBC) [Entitic mass] 30.1 pg Normal 27.0-33.0 [facility] Comment on above: Performed By: #### L [id number] #### [facility] ([facility]) [address] [place] [address] MCV (RBC) [Entitic vol] 91.6 fL Normal 82.0-98.0 [facility] Comment on above: Performed By: #### L [id number] #### [facility] ([facility]) [address] [place] [address] PLATELETS (10*3/UL) IN BLOOD AUTOMATED COUNT 151 10*3/uL Normal 150-400 [facility] Comment on above: Performed By: #### L [id number] #### [facility] ([facility]) [address] [place] [address] RBC (Bld) [#/Vol] 2.49 10*6/uL Low 3.80-5.00 [facility] Comment on above: Performed By: #### L [id number] #### [facility] ([facility]) [address] [place] [address] WBC (Bld) [#/Vol] 2.68 10*3/uL Low 4.00-10.60 [facility] Comment on above: Performed By: #### L [id number] #### [facility] ([facility]) [address] [place] [address] 30on 05-24-2024 30 The patient is Moderately Stable - Low risk of patient condition declining or worsening The patient's goals for the shift include comfort and safety The clinical goals for the shift include stable vitals and labs, pain management Normal [facility] 30 The patient is Moderately Stable - [...] maintained or improved Outcome: Not Progressing Normal [facility] AMIKACIN LEVEL, PEAKon 05-24 AMIKACIN (UG/ML) IN SER/PLAS - PEAK 26.3 ug/mL High 20.0-25.0 [facility] Comment on above: Order Comment: Lisetteconrado e obtain 60 minutes after end of amikacin infusion Result Comment: Test Performed by [email or web address] [address] [place] [address] - Released 05/24/2024 08:06 Performed By: #### L [id number] #### [facility] [address] [place] [address] BASIC METABOLIC PANELon 05-01 Anion gap [Moles/Vol] 9 mmol/L Normal 7-20 [facility] Comment on above: Performed By: #### L [id number] ####[facility] ([facility])[address] [facility] [place] [address] Calcium [Mass/Vol] 8.1 mg/dL Low 8.6-10.3 [facility] Comment on above: Performed By: #### L [id number] ####[facility] ([facility])[address] [place] [address] Chloride [Moles/Vol] 106 mmol/L Normal 98-107 [facility] Comment on above: Performed By: #### L [id number] ####[facility] ([facility])[address] [place] [address] CO2 [Moles/Vol] 26 mmol/L Normal 21-31 [facility] Comment on above: Performed By: #### L [id number] ####[facility] ([facility])[address] [place] [address] Creatinine [Mass/Vol] 0.60 mg/dL Normal 0.60-1.20 [facility] Comment on above: Performed By: #### L [id number] ####[facility] ([facility])[address] [place] [address] GLOMERULAR FILTRATION RATE ML/MIN/1.73 SQ M.PREDICTED 107.3 mL/min/1.73m*2 Normal >60.0 [facility] Comment on above: Result Comment: The [facility]???s estimated glomerular filtration rate (eGFR) will no [...] group of individuals. Performed By: #### L [id number] ####[facility] ([facility])[address] [place] [address] Glucose [Mass/Vol] 92 mg/dL Normal 70-100 [facility] Comment on above: Performed By: #### L [id number] ####[facility] ([facility])[address] [place] [address] Potassium [Moles/Vol] 3.0 mmol/L Low 3.5-5.1 [facility] Comment on above: Performed By: #### L [id number] ####[facility] ([facility])[address] [place] [address] Sodium [Moles/Vol] 138 mmol/L Normal 136-145 [facility] Comment on above: Performed By: #### L [id number] ####[facility] ([facility])[address] [place] [address] Urea nitrogen [Mass/Vol] 9 mg/dL Normal 7-25 [facility] Comment on above: Performed By: #### L [id number] ####[facility] ([facility])[address] [place] [address] UREA NITROGEN/CREATININE (MASS RATIO) IN SER/PLAS 15.0 Normal [facility] Comment on above: Performed By: #### L [id number] ####[facility] ([facility])[address] [place] [address] BLOOD CULTUREon 05-24-2024 Bacteria identified Cx Nom (Bld) No growth at 5 days Normal [facility] Comment on above: Order Comment: From a different site than #1. Performed By: #### L [id number] ####[facility] ([facility])[address] [place] [address] Bacteria identified Cx Nom (Bld) No growth at 5 days Normal [facility] Comment on above: Performed By: #### L [id number] ####[facility] ([facility])[address] [place] [address] CBC WITH AUTO DIFFERENTIALon 05-24-2024 Erythrocyte distribution width (RBC) [Ratio] 19.2 % High 11.5-15.0 [facility] Comment on above: Performed By: #### L [id number] #### [facility] ([facility]) [address] [place] [address] ERYTHROCYTE MEAN CORPUSCULAR HEMOGLOBIN CONCENTRATION (G/DL) BY AUTOMATED 32.5 g/dL Normal 32.0-35.0 [facility] Comment on above: Performed By: #### L [id number] #### [facility] ([facility]) [address] [place] [address] Hematocrit (Bld) [Volume fraction] 25.5 % Low 36.0-45.0 [facility] Comment on above: Performed By: #### L [id number] #### [facility] ([facility]) [address] [place] [address] Hemoglobin (Bld) [Mass/Vol] 8.3 g/dL Low 12.0-15.0 [facility] Comment on above: Performed By: #### L [id number] #### [facility] ([facility]) [address] [place] [address] MCH (RBC) [Entitic mass] 30.1 pg Normal 27.0-33.0 [facility] Comment on above: Performed By: #### L [id number] #### [facility] ([facility]) [address] [address] MCV (RBC) [Entitic vol] 92.4 fL Normal 82.0-98.0 [facility] Comment on above: Performed By: #### L [id number] #### [facility] ([facility]) [address] [address] NRBC (PER 100 WBCS) BY AUTOMATED COUNT 0.0 % Normal 0 [facility] Comment on above: Performed By: #### L [id number] #### [facility] ([facility]) [address] [place] [address] PLATELETS (10*3/UL) IN BLOOD AUTOMATED COUNT 193 10*3/uL Normal 150-400 [facility] Comment on above: Performed By: #### L [id number] #### [facility] ([facility]) [address] [facility] [place] [address] RBC (Bld) [#/Vol] 2.76 10*6/uL Low 3.80-5.00 [facility] Comment on above: Performed By: #### L [id number] #### [facility] ([facility]) [address] [facility] [place] [address] WBC (Bld) [#/Vol] 2.10 10*3/uL Low 4.00-10.60 [facility] Comment on above: Performed By: #### L [id number] #### [facility] ([facility]) [address] [facility] [place] [address] CONSULTon 05-24-2024 CONSULT Infectious Diseases - Initial [...] Jacques MD History of Present Illness Ike A Widman is a 53 y.o.-year-old female who was initially admitted on 05/23/2024. 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 She has had two debridements of the abscess earlier this month. The wound is currently open and packed. [facility] was going to get a wound [...] Patient was seen in the ER at [facility] a couple days ago for fever but [...] 100 mL/hr, Last Rate: 100 mL/hr (05/23/24 3245) Social History: Social History Socioeconomic History Marital [...] Physical Activity: Sufficiently Active (02/27/2022) Received from [employer], [employer] Exercise Vital Sign Days of Exercise per Week: 3 days Minutes of Exercise per Session: 60 min Stress: Stress Concern Present (02/27/2022) Received from [employer] [place] [employer] - Occupational Stress Questionnaire Feeling of Stress : To some extent Social Connections: Socially Integrated (02/27/2022) Received from [employer], [employer] Social Connection and Isolation Panel [NHANES] Frequency [...] Moved in (more content not included)... Normal [facility] HEPATITIS PANEL, ACUTEon HEPATITIS A VIRUS IGM AB PRESENCE IN SER/PLAS Non-Reactive Normal Nonreactive [facility] Comment on above: Performed By: #### L [id number] #### [facility] ([facility]) [address] [place] [address] HEPATITIS B VIRUS CORE AB (PRESENCE) IN SER/PLAS BY IMM Non-Reactive Normal Nonreactive [facility] Comment on above: Performed By: #### L [id number] #### [facility] ([facility]) [address] [place] [address] HEPATITIS B VIRUS SURFACE AG PRESENCE IN SERUM Non-Reactive Normal Nonreactive [facility] Comment on above: Performed By: #### L [id number] #### [facility] ([facility]) [address] [place] [address] HEPATITIS C VIRUS AB PRESENCE IN SERUM Non-Reactive Normal Nonreactive [facility] Comment on above: Performed By: #### L [id number] #### [facility] ([facility]) [address] [place] [address] LACTIC ACID WITH 4 HOUR REFL EXon 05-24-2024 LACTATE (MMOL/L) IN SER/PLAS 0.7 mmol/L Normal 0.5-2.2 [facility] Comment on above: Performed By: #### L [id number] #### [facility] ([facility]) [address] [place] [address] MAGNESIUMon 05-24-2024 Magnesium [Mass/Vol] 1.6 mg/dL Low 1.9-2.7 [facility] Comment on above: Performed By: #### L [id number] #### [facility] ([facility]) [address] [place] [address] MANUAL DIFFERENTIALon 2024 ANISOCYTOSIS PRESENCE IN BLOOD BY LIGHT MICROSCOPY Moderate Normal [facility] Comment on above: Performed By: #### L [id number] ####[facility] ([facility])[address] [place] [address] BASOPHILS (10*3/UL) IN BLOOD BY CALCULATION 0.01 10*3/uL Normal 0.00-0.20 [facility] Comment on above: Performed By: #### L [id number] ####[facility] ([facility])[address] [place] [address] BASOPHILS/100 LEUKOCYTES IN BLOOD BY AUTOMATED COUNT 0.5 % Normal 0.0-1.0 [facility] Comment on above: Performed By: #### L [id number] ####[facility] ([facility])[address] [place] [address] EOSINOPHILS (10*3/UL) IN BLOOD BY CALCULATION 0.16 10*3/uL Normal 0.00-0.50 [facility] Comment on above: Performed By: #### L [id number] ####[facility] ([facility])[address] [place] [address] EOSINOPHILS/100 LEUKOCYTES IN BLOOD BY AUTOMATED COUNT 7.6 % High 0.0-6.0 [facility] Comment on above: Performed By: #### L [id number] ####[facility] ([facility])[address] [place] [address] IMMATURE GRANULOCYTES (10*3/UL) IN BLOOD BY CALCULATION 0.02 10*3/uL Normal 0.00-0.20 [facility] Comment on above: Performed By: #### L [id number] ####[facility] ([facility])[address] [place] [address] IMMATURE GRANULOCYTES/100 LEUKOCYTES IN BLOOD BY AUTOMATED COUNT 1.0 % Normal 0.0-1.0 [facility] Comment on above: Performed By: #### L [id number] ####[facility] ([facility])[address] [place] [address] LYMPHOCYTES (10*3/UL) IN BLOOD BY CALCULATION 0.51 10*3/uL Low 1.20-4.00 [facility] Comment on above: Performed By: #### L [id number] ####[facility] ([facility])[address] [place] [address] LYMPHOCYTES/100 LEUKOCYTES IN BLOOD BY AUTOMATED COUNT 24.3 % Normal 20.0-45.0 [facility] Comment on above: Performed By: #### L [id number] ####[facility] ([facility])[address] [place] [address] MONOCYTES (10*3/UL) IN BLOOD BY CALCUATION 0.34 10*3/uL Normal 0.10-1.00 [facility] Comment on above: Performed By: #### L [id number] ####[facility] ([facility] [place] [address] MONOCYTES/100 LEUKOCYTES IN BLOOD BY AUTOMATED COUNT 16.2 % High 5.0-12.0 [facility] Comment on above: Performed By: #### L [id number] ####[facility] ([facility])[address] [place] [address] NEUTROPHILS (10*3/UL) IN BLOOD BY CALCULATION 1.1 10*3/uL Low 1.6-7.6 [facility] Comment on above: Performed By: #### L [id number] ####[facility] ([facility])[address] [place] [address] NEUTROPHILS/100 LEUKOCYTES IN BLOOD BY AUTOMATED COUNT 50.4 % Normal 40.0-72.0 [facility] Comment on above: Performed By: #### L [id number] ####[facility] ([facility])[address] [place] [address] POIKILOCYTOSIS (PRESENCE) IN BLOOD BY LIGHT MICROSCOPY Slight Normal [facility] Comment on above: Performed By: #### L [id number] ####[facility] ([facility])[address] [place] [address] POLYCHROMASIA IN BLOOD BY LIGHT MICROSCOPY Slight Normal [facility] Comment on above: Performed By: #### L [id number] ####[facility] ([facility])[address] [place] [address] SEDIMENTATION RATEon 05-24-2 025 SEDIMENTATION RATE, ERYTHROCYTE 3 mm/hr Normal <30 [facility] Comment on above: Performed By: #### L [id number] #### [facility] ([facility]) [address] [place] [address] URINALYSIS WITH REFLEX CULTU REon 05-24-2024 BILIRUBIN, TOTAL PRESENCE IN URINE Negative Normal Negative [facility] Comment on above: Order Comment: Micro scopics not performed on urines with negative chemical reactions unless requested on original order. Performed By: #### L [id number] #### [facility] ([facility]) [address] [place] [address] Clarity (U) Clear Normal Clear [facility] Comment on above: Order Comment: Micro scopics not performed on urines with negative chemical reactions unless requested on original order. Performed By: #### L [id number] #### [facility] ([facility]) [address] [place] [address] Color (U) Colorless Normal Colorless, Yellow, Light-Yellow [facility] Comment on above: Order Comment: Micro scopics not performed on urines with negative chemical reactions unless requested on original order. Performed By: #### L [id number] #### [facility] ([facility]) [address] [place] [address] GLUCOSE (MG/DL) IN URINE Normal Normal Normal [facility] Comment on above: Order Comment: Micro scopics not performed on urines with negative chemical reactions unless requested on original order. Performed By: #### L [id number] #### [facility] ([facility]) [address] [place] [address] HEMOGLOBIN PRESENCE IN URINE Negative Normal Negative [facility] Comment on above: Order Comment: Micro scopics not performed on urines with negative chemical reactions unless requested on original order. Performed By: #### L [id number] #### [facility] ([facility]) [address] [place] [address] Ketones Ql (U) Negative Normal Negative [facility] Comment on above: Order Comment: Micro scopics not performed on urines with negative chemical reactions unless requested on original order. Performed By: #### L [id number] #### [facility] ([facility]) [address] [place] [address] LEUKOCYTE ESTERASE PRESENCE IN URINE BY TEST STRIP Negative Normal Negative [facility] Comment on above: Order Comment: Micro scopics not performed on urines with negative chemical reactions unless requested on original order. Performed By: #### L [id number] #### [facility] ([facility]) [address] [place] [address] NITRITE PRESENCE IN URINE Negative Normal Negative [facility] Comment on above: Order Comment: Micro scopics not performed on urines with negative chemical reactions unless requested on original order. Performed By: #### L [id number] #### [facility] ([facility]) [address] [place] [address] pH (U) 6.5 [pH] Normal 5.0-8.0 [facility] Comment on above: Order Comment: Micro scopics not performed on urines with negative chemical reactions unless requested on original order. Performed By: #### L [id number] #### [facility] ([facility]) [address] [place] [address] Protein (U) [Mass/Vol] Negative Normal Negative [facility] Comment on above: Order Comment: Micro scopics not performed on urines with negative chemical reactions unless requested on original order. Performed By: #### L [id number] #### [facility] ([facility]) [address] [place] [address] Specific gravity (U) [Rel density] 1.006 Low 1.010-1.030 [facility] Comment on above: Order Comment: Micro scopics not performed on urines with negative chemical reactions unless requested on original order. Performed By: #### L [id number] #### [facility] ([facility]) [address] [place] [address] UROBILINOGEN (MG/DL) IN URINE Normal Normal Normal [facility] Comment on above: Order Comment: Micro scopics not performed on urines with negative chemical reactions unless requested on original order. Performed By: #### L [id number] #### [facility] ([facility]) [address] [place] [address] 36on 05-23-2024 36 Patient called again stating that she feels awful and fevers going up to 103.6. She is taking Oxycodone and it is not helping. Advised patient to present to ER. Patient stated she is headed to [facility] ER. Normal [facility] 36 She went to [facility], and looks like they talked with both Dr. Lui and Dr. Zaragoza. Work up was benign other than fever which improved with IV tylenol and Zofran. Recommended admitting for observation or going home. She went home and said she would call if things worsened. (I have actually never seen the pt) [facility] 36 What do you suppose we should suggest here? Normal [facility] 36 I spoke to her yesterday and had her go to her local ER to get tested for flu and covid Normal [facility] [address] Lui recommended she go to the ER last night. She went and no relief today Fever spikes ( Last checked this morning 98.8) Terrible headache( constant, on top of head, rate pain 8) Normal [facility] CBC WITH AUTO DIFFERENTIALon 05-23-2024 Erythrocyte distribution width (RBC) [Ratio] 19.5 % High 11.5-15.0 [facility] Comment on above: Performed By: #### L [id number] #### [facility] ([facility]) [address] [place] [address] ERYTHROCYTE MEAN CORPUSCULAR HEMOGLOBIN CONCENTRATION (G/DL) BY AUTOMATED 32.8 g/dL Normal 32.0-35.0 [facility] Comment on above: Performed By: #### L [id number] #### [facility] ([facility]) [address] [place] [address] Hematocrit (Bld) [Volume fraction] 29.0 % Low 36.0-45.0 [facility] Comment on above: Performed By: #### L [id number] #### [facility] ([facility]) [address] [place] [address] Hemoglobin (Bld) [Mass/Vol] 9.5 g/dL Low 12.0-15.0 [facility] Comment on above: Performed By: #### L [id number] #### [facility] ([facility]) [address] [place] [address] MCH (RBC) [Entitic mass] 30.4 pg Normal 27.0-33.0 [facility] Comment on above: Performed By: #### L [id number] #### [facility] ([facility]) [address] [place] [address] MCV (RBC) [Entitic vol] 92.9 fL Normal 82.0-98.0 [facility] Comment on above: Performed By: #### L [id number] #### [facility] ([facility]) [address] [place] [address] NRBC (PER 100 WBCS) BY AUTOMATED COUNT 0.0 % Normal 0 [facility] Comment on above: Performed By: #### L [id number] #### [facility] ([facility]) [address] [place] [address] PLATELETS (10*3/UL) IN BLOOD AUTOMATED COUNT 220 10*3/uL Normal 150-400 [facility] Comment on above: Performed By: #### L [id number] #### [facility] ([facility]) [address] [place] [address] RBC (Bld) [#/Vol] 3.12 10*6/uL Low 3.80-5.00 [facility] Comment on above: Performed By: #### L [id number] #### [facility] ([facility]) [address] [place] [address] WBC (Bld) [#/Vol] 6.69 10*3/uL Normal 4.00-10.60 [facility] Comment on above: Performed By: #### L [id number] #### [facility] ([facility]) [address] [place] [address] COMPREHENSIVE METABOLIC PANE [place] 05-23-2024 Albumin [Mass/Vol] 3.6 g/dL Normal 3.5-5.7 [facility] Comment on above: Performed By: #### L [id number] #### [facility] ([facility]) [address] [place] [address] ALP [Catalytic activity/Vol] 70 U/L Normal 34-104 [facility] Comment on above: Performed By: #### L [id number] #### [facility] [address] [place] [address] ALT [Catalytic activity/Vol] 26 U/L Normal 7-52 [facility] Comment on above: Performed By: #### L [id number] #### [facility] ([facility]) [address] [place] [address] Anion gap [Moles/Vol] 11 mmol/L Normal 7-20 [facility] Comment on above: Performed By: #### L [id number] #### [facility] (BEAKER) [address] [place] [address] AST [Catalytic activity/Vol] 87 U/L High 13-39 [facility] Comment on above: Performed By: #### L [id number] #### [facility] (BEAKER) [address] [place] [address] Bilirubin [Mass/Vol] 0.7 mg/dL Normal 0.3-1.0 [facility] Comment on above: Performed By: #### L [id number] #### [facility] (BEAKER) [address] [place] [address] Calcium [Mass/Vol] 8.7 mg/dL Normal 8.6-10.3 [facility] Comment on above: Performed By: #### L [id number] #### [facility] (BEAKER) [address] [place] [address] Chloride [Moles/Vol] 102 mmol/L Normal 98-107 [facility] Comment on above: Performed By: #### L [id number] #### [facility] (BEAKER) [address] [place] [address] CO2 [Moles/Vol] 25 mmol/L Normal 21-31 [facility] Comment on above: Performed By: #### L [id number] #### [facility] (BEAKER) [address] [place] [address] Creatinine [Mass/Vol] 0.73 mg/dL Normal 0.60-1.20 [facility] Comment on above: Performed By: #### L [id number] #### [facility] (BEAKER) [address] [place] [address] GLOMERULAR FILTRATION RATE ML/MIN/1.73 SQ M.PREDICTED 98.3 mL/min/1.73m*2 Normal >60.0 [facility] Comment on above: Result Comment: The [facility]???s estimated glomerular filtration rate (eGFR) will no [...] group of individuals. Performed By: #### L [id number] #### [facility] ([facility]) [address] [place] [address] Glucose [Mass/Vol] 103 mg/dL High 70-100 [facility] Comment on above: Performed By: #### L [id number] #### [facility] ([facility]) [address] [place] [address] Potassium [Moles/Vol] 3.5 mmol/L Normal 3.5-5.1 [facility] Comment on above: Performed By: #### L [id number] #### [facility] ([facility]) [address] [place] [address] Protein [Mass/Vol] 6.1 g/dL Normal 6.0-8.3 [facility] Comment on above: Performed By: #### L [id number] #### [facility] ([facility]) [address] [place] [address] Sodium [Moles/Vol] 134 mmol/L Low 136-145 [facility] Comment on above: Performed By: #### L [id number] #### [facility] ([facility]) [address] [place] [address] Urea nitrogen [Mass/Vol] 9 mg/dL Normal 7-25 [facility] Comment on above: Performed By: #### L [id number] #### [facility] (BEAKER) [address] [facility] [place] [place] [address] UREA NITROGEN/CREATININE (MASS RATIO) IN SER/PLAS 12.3 Normal [facility] Comment on above: Performed By: #### L [id number] #### [facility] (BEAKER) [address] [place] [address] ED Note-Physicianon 05-24-19 ED Note-Physician ED Note-Physician Basic Information Time Seen: Benji Deleon PA-C 05/22/2024 19:05 Chief Complaint pt presents with [...] and Complexity of Problems Differential Diagnosis: [] [facility] Data External documents reviewed: [] My EKG [...] 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 Reports that he was the one that [...] to concerns, I did reach out to [facility] as well as I did talk to [...] Head ache (more content not included)... Normal [facility] Comment on above: Result Comment: Elec tronically Signed By: Benji Deleon PA-C\.br\Date and Time Signed: 05/22/24 22:38 EDT\.br\Electronically Co-Signed [...] and came up with nothing . Normal [facility] EDPROVon 05-23-2024 EDPROV [facility] EMERGENCY DEPARTMENT ENCOUNTER Pt Name: Ike Flannery [...] the patient go home and present to [facility] ED if symptoms persist/worsen. Patient opted to [...] 5 mg by mouth two times daily. xuaymhtt-hnmtamucc-jge cium [facility] (Jose) 7-7-1.5 gram powder in [...] capsule Take (more content not included)... Normal [facility] MANUAL DIFFERENTIALon 2024 ANISOCYTOSIS PRESENCE IN BLOOD BY LIGHT MICROSCOPY Moderate Normal [facility] Comment on above: Performed By: #### L [id number] ####[facility] ([facility])[address] [place] [address] BASOPHILS (10*3/UL) IN BLOOD BY CALCULATION 0.01 10*3/uL Normal 0.00-0.20 [facility] Comment on above: Performed By: #### L [id number] ####[facility] ([facility])[address] [place] [address] BASOPHILS/100 LEUKOCYTES IN BLOOD BY AUTOMATED COUNT 0.1 % Normal 0.0-1.0 [facility] Comment on above: Performed By: #### L [id number] ####[facility] ([facility])[address] [place] [address] EOSINOPHILS (10*3/UL) IN BLOOD BY CALCULATION 0.10 10*3/uL Normal 0.00-0.50 [facility] Comment on above: Performed By: #### L [id number] ####[facility] ([facility])[address] [place] [address] EOSINOPHILS/100 LEUKOCYTES IN BLOOD BY AUTOMATED COUNT 1.5 % Normal 0.0-6.0 [facility] Comment on above: Performed By: #### L [id number] ####[facility] ([facility])[address] [place] [address] IMMATURE GRANULOCYTES (10*3/UL) IN BLOOD BY CALCULATION 0.02 10*3/uL Normal 0.00-0.20 [facility] Comment on above: Performed By: #### L [id number] ####[facility] ([facility])[address] [place] [address] IMMATURE GRANULOCYTES/100 LEUKOCYTES IN BLOOD BY AUTOMATED COUNT 0.3 % Normal 0.0-1.0 [facility] Comment on above: Performed By: #### L [id number] ####[facility] ([facility])[address] [place] [address] LYMPHOCYTES (10*3/UL) IN BLOOD BY CALCULATION 0.26 10*3/uL Low 1.20-4.00 [facility] Comment on above: Performed By: #### L [id number] ####[facility] ([facility] [place] [address] LYMPHOCYTES/100 LEUKOCYTES IN BLOOD BY AUTOMATED COUNT 3.9 % Low 20.0-45.0 [facility] Comment on above: Performed By: #### L [id number] ####[facility] ([facility])[address] [place] [address] MONOCYTES (10*3/UL) IN BLOOD BY CALCUATION 0.22 10*3/uL Normal 0.10-1.00 [facility] Comment on above: Performed By: #### L [id number] ####[facility] ([facility])[address] [place] [address] MONOCYTES/100 LEUKOCYTES IN BLOOD BY AUTOMATED COUNT 3.3 % Low 5.0-12.0 [facility] Comment on above: Performed By: #### L [id number] ####[facility] ([facility])[address] [place] [address] NEUTROPHILS (10*3/UL) IN BLOOD BY CALCULATION 6.1 10*3/uL Normal 1.6-7.6 [facility] Comment on above: Performed By: #### L [id number] ####[facility] ([facility])[address] [place] [address] NEUTROPHILS/100 LEUKOCYTES IN BLOOD BY AUTOMATED COUNT 90.9 % High 40.0-72.0 [facility] Comment on above: Performed By: #### L [id number] ####[facility] (BEAKER)[address] [place] [address] POIKILOCYTOSIS (PRESENCE) IN BLOOD BY LIGHT MICROSCOPY Slight Normal [facility] Comment on above: Performed By: #### L [id number] ####[facility] (BEAKER)[address] [place] [address] POLYCHROMASIA IN BLOOD BY LIGHT MICROSCOPY Slight Normal [facility] Comment on above: Performed By: #### L [id number] ####[facility] (MIKE)[address] [place] [address] Orders Onlyon 05-23-2024 Orders Only [id number] kIe Flannery 1970 F Date Provider Department Center 05/23/2024 258-JOSSY MOODY [facility] Family History Adopted: Yes Problem Relation Age of Onset Heart attack Father Family Status - Relation Status Age at Father Normal [facility] Telephoneon 05-23-2024 Telephone [id number] Ike Flannery 1970 F Date Provider Department Center 05/23/2024 HarmonyKEVINRYANODALYS [facility] INF 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 Ordering Provider: Benji Deleon FINAL REPORT Dictated: 05/23/2024 9:07 am Michael Pappas MD Signed (Electronic Signature): 05/23/2024 9:07 am Signed by: Michael Pappas MD Transcribed by: ELIAS Technologist: CML Normal [facility] CBC w/ Auto Diffon 5 Basophils/100 WBC (Bld) 0.5 % Normal 0.0-2.0 [facility] Comment on above: Performed By: #### 2 [id number] #### [facility] [address] [place] [address] Basophils/Leukocytes Auto (Bld) [Pure # fraction] 0.0 E9/L Normal 0.0-0.2 [facility] Comment on above: Performed By: #### 2 [id number] #### [facility] [address] [place] [address] Eosinophils (Bld) [#/Vol] 0.1 E9/L Normal 0.0-0.5 [facility] Comment on above: Performed By: #### 2 [id number] #### [facility] [address] [place] [address] Eosinophils/100 WBC (Bld) 3.8 % Normal 0.0-8.0 [facility] Comment on above: Performed By: #### 2 [id number] #### [facility] [address] [place] [address] Erythrocyte distribution width (RBC) [Ratio] 22.1 % High 10.9-14.2 [facility] Comment on above: Performed By: #### 2 [id number] #### [facility] [address] [place] [address] Hematocrit (Bld) [Volume fraction] 26.9 % Low 34.0-46.0 [facility] Comment on above: Performed By: #### 2 [id number] #### [facility] [address] [place] [address] Hemoglobin (Bld) [Mass/Vol] 9.4 g/dL Low 12.0-16.0 [facility] Comment on above: Performed By: #### 2 [id number] #### [facility] [address] [place] [address] Lymphocytes (Bld) [#/Vol] 0.3 E9/L Low 1.0-4.0 [facility] Comment on above: Performed By: #### 2 [id number] #### [facility] [address] [place] [address] Lymphocytes/100 WBC (Bld) 6.8 % Low 14.0-50.0 [facility] Comment on above: Performed By: #### 2 [id number] #### [facility] [address] [place] [address] MCH (RBC) [Entitic mass] 31.5 pg Normal 27.0-34.0 [facility] Comment on above: Performed By: #### 2 [id number] #### [facility] [address] [place] [address] MCHC (RBC) [Mass/Vol] 34.8 g/dL Normal 31.4-36.0 [facility] Comment on above: Performed By: #### 2 [id number] #### [facility] [address] [place] [address] MCV (RBC) [Entitic vol] 90.3 fL Normal 80.0-100.0 [facility] Comment on above: Performed By: #### 2 [id number] #### [facility] [address] [place] [address] Monocytes (Bld) [#/Vol] 0.2 E9/L Normal 0.2-1.0 [facility] Comment on above: Performed By: #### 2 [id number] #### [facility] [address] [place] [address] Neutrophils (Bld) [#/Vol] 3.2 E9/L Normal 2.0-7.5 [facility] Comment on above: Performed By: #### 2 356357 #### [facility] [address] [place] [address] Neutrophils/100 WBC (Bld) 84.7 % High 36.0-75.0 [facility] Comment on above: Performed By: #### 2 420791 #### [facility] [address] [place] [address] Platelet 188.0 E9/L Normal 150.0-500.0 [facility] Comment on above: Performed By: #### 2 215231 #### [facility] [address] [place] [address] Platelet mean volume (Bld) [Entitic vol] 7.2 fL Normal 6.4-10.8 [facility] Comment on above: Performed By: #### 2 [id number] #### [facility] [address] [place] [id number] RBC (Bld) [#/Vol] 3.0 E12/L Low 4.3-5.9 [facility] Comment on above: Performed By: #### 2 [id number] #### [facility] [address] [place] [address] WBC corrected for nucl RBC Auto (Bld) [#/Vol] 3.8 E9/L Low 4.0-11.0 [facility] Comment on above: Performed By: #### 2 [id number] #### [facility] [address] [place] [address] CHEMISTRYOrdered By: SYSTEM SYSTEM on 05-22-2024 Albumin [...] Sensitivity Troponin I Instructions For Use, [place], September 2017) Urea nitrogen [Mass/Vol] 8 mg/dL Normal 5 - 21 mg/dL Rem[facility] Urea nitrogen/Creatinine [Mass ratio] 11 mg/mg Normal 10 - 20 [facility] CMPon 05-22-2024 Albumin [Mass/Vol] 3.5 g/dL Normal 3.3-5.0 [facility] Comment on above: Performed By: #### 2 [id number] #### [facility] [address] [place] [address] Albumin/Globulin (S) [Mass conc ratio] 1.7 Normal 1.1-2.2 [facility] Comment on above: Performed By: #### 2 [id number] #### [facility] [address] [place] [address] ALP [Catalytic activity/Vol] 64 Int._Unit/L Normal 21-98 [facility] Comment on above: Performed By: #### 2 [id number] #### [facility] [address] [place] [address] ALT No additional P-5'-P [Catalytic activity/Vol] 26 Int._Unit/L Normal 6-46 [facility] Comment on above: Performed By: #### 2 [id number] #### [facility] [address] [place] [address] Anion gap [Moles/Vol] 10 mmol/L Normal 6-16 [facility] Comment on above: Performed By: #### 2 [id number] #### [facility] [address] [place] [address] AST [Catalytic activity/Vol] 45 Int._Unit/L High 5-43 [facility] Comment on above: Performed By: #### 2 287226 #### [facility] [address] [place] [address] Bilirubin [Mass/Vol] 0.7 mg/dL Normal 0.0-1.1 [facility] Comment on above: Performed By: #### 2 [id number] #### [facility] [address] [place] [address] Calcium [Mass/Vol] 8.8 mg/dL Low 8.9-11.1 [facility] Comment on above: Performed By: #### 2 647358 #### [facility] [address] [place] [address] Chloride [Moles/Vol] 105 mmol/L Normal 101-111 [facility] Comment on above: Performed By: #### 2 524486 #### [facility] [address] [place] [address] CO2 [Moles/Vol] 25 mmol/L Normal 21-31 [facility] Comment on above: Performed By: #### 2 978249 #### [facility] [address] [place] [address] Creatinine [Mass/Vol] 0.7 mg/dL Normal 0.5-1.3 [facility] Comment on above: Performed By: #### 2 763136 #### [facility] [address] [place] [address] Globulin (S) [Mass/Vol] 2.1 g/dL Normal 1.4-4.0 [facility] Comment on above: Performed By: #### 2 255426 #### [facility] [address] [place] [address] Glucose [Mass/Vol] 102 mg/dL Normal 55-199 [facility] Comment on above: Performed By: #### 2 218459 #### [facility] [address] [place] [address] Potassium [Moles/Vol] 3.1 mmol/L Low 3.5-5.3 [facility] Comment on above: Performed By: #### 2 972643 #### [facility] [address] [place] [address] Protein [Mass/Vol] 5.6 g/dL Low 6.0-7.8 [facility] Comment on above: Performed By: #### 2 145569 #### [facility] [address] [place] [address] Sodium [Moles/Vol] 137 mmol/L Normal 135-145 [facility] Comment on above: Performed By: #### 2 042501 #### [facility] [address] [place] [address] Urea nitrogen [Mass/Vol] 8 mg/dL Normal 5-21 [facility] Comment on above: Performed By: #### 2 522170 #### [facility] [address] [place] [address] Urea nitrogen/Creatinine [Mass ratio] 11 No Units Normal 10-20 [facility] Comment on above: Performed By: #### 2 [id number] #### [facility] [address] [place] [address] COAGULATIONOrdered By: Seth Smith on 05-22-2024 aPTT Coag (PPP) [Time] 21.3 s Low 25.1 - 36.5 second(s) [facility] Comment on above: Interpretive Data: P arameter 15 days - 4 weeks 1 - 5 months 6 - 11 months 1 - 5 years 6 - 10 years 11 - 17 years PTT Mean: 35.4 (27.6-45.6) Mean: 33.5 (24.8-40.7) Mean: 32.4 (25.1-40.7) Mean: 31.6 (24.0-39.2) Mean: 31.6 (26.9-38.7) Mean: 31.0 (24.6-38.4) Pediatric Reference ranges were obtained from a study by ann Thorpe alStarr prepared from 1437 samples obtained at 7 different centers using the same coagulation reagent and instrumentation as [facility]. Currently there are no coagulation studies available worldwide for children to 14 days, and no normal ranges. Heparin therapeutic range (represented by Anti-Factor Xa activity of 0.2 - 0.4 U/mL) corresponds to PTT of 56.6 - 109.0 sec. INR Coag (PPP) [Relative time] 1.29 {INR} Invalid Interpretation Code [facility] Comment on above: Interpretive Data: I NR results are specifically intended to assess patients stabilized on long-term Anticoagulation therapy suggested INR s Less Intensive Anticoagulation 2.0 3.0 Conventional Range 3.0 4.5 PT Coag (PPP) [Time] 14.5 s High 9.4 - 1 2.5 second(s) [facility] Comment on above: Interpretive Data: 1 5 days - 4 weeks 1 - 5 months 6 -11 months 1 5 years 6 10 years 11 -17 years Mean: 11.2 (9.5 12.6) Mean: 11.0 (9.7 12.8) Mean: 11.0 (9.8 13.0) Mean: 11.3 (9.9 13.4) Mean: 11.7 (10.0 14.6) Mean: 11.8 (10.0 - 14.1) Pediatric Reference ranges were obtained from a study by ann Thorpe alStarr prepared from 1437 samples obtained at 7 different centers using the same coagulation reagent and instrumentation as [facility]. Currently there are no coagulation studies available worldwide for children to 14 days, and no normal ranges. ED Clinical Summaryon 2024 ED Clinical Summary ED Clinical Summary [address] [address] ED Clinical Summary Person Information Name: IKE FLANNERY[place] Age: 53 Years : 1970 Sex: Female Language: Egyptian PCP: RANDY CALLE DO Marital Status: Phone: [phone] Visit Id: Visit Reason: Chills; Headache; headache,fever,chills [...] 05/22/2024 23:11:22 05/22/2024 23:11:22 05/22/2024 23:11:22 AD[address]: [address] [facility] [id number] [facility] DOC NOTES: MEDICAL INFORMATION: Prescriptions Given: Medications [...] Follow up: With: Address: When: HERMAN LUI [address] [place] [address] [address] [place] [address] In 3 days 05/25/2024 Comments: Call Dr for diagnosis based follow up With: Address: When: RANDY CALLE [address] [place], [place] [id number] [facility] () In 3 days DIAGNOSIS: Body aches; Fever; Head ache Normal [facility] ED Patient Education Noteon 05-22-2024 ED Patient Education Note ED Patient Education Note Normal [facility] ED Patient Summaryon 025 ED Patient Summary ED Patient Summary [address] [address] Patient Discharge Instructions Person Information Name: IKE FLANNERY Age: 53 Years Arrival Date: 05/22/2024 18:54:27 Discharge Diagnosis: Body aches; Fever; Head ache Primary Care Physician: RANDY CALLE DO Provider Information Primary Provider: Jose Arcos, Bárbara David Advanced Abap Developer:Benji Deleon PA-C The exam and treatment you received in the Emergency Department were for an urgent problem and are not intended as complete care. It is important that you follow up with a doctor, nurse practitioner, or physician???s transportation assistant for ongoing care. If your symptoms [...] Follow-up Instructions: With: Address: When: HERMAN LUI [address] [place] [address] In 3 days 05/25/2024 Comments: Call Dr for diagnosis based follow up With: Address: When: RANDY CALLE [address] [place] [id number] [facility] (5) In 3 days In the event that this physician does not participate in your insurance network, please consult with your insurance company to find a nearby participating provider. Patient Education Materials: A MESSAGE TO ALL PATIENTS REGARDING OPIOIDS PRESCRIPTION OPIOIDS: WHAT YOU NEED TO KNOW Prescription opioids can be used to help relieve jhrbxfpq-sk-twcfjd pain and are often prescribed following a [...] learn about (more content not included)... Normal [facility] HEMATOLOGYOrdered By: SYSTEM SYSTEM on 05-22-2024 Basophils/100 [...] Agon Influenzae A Ag Negative Normal Negative [facility] Comment on above: Performed By: #### 1 [id number] #### [facility] [address] [place] [address] Influenzae B Ag Negative Normal Negative [facility] Comment on above: Result Comment: Test sensitivity and specificity vary for age group, specimen type, antigen types, and prevalence of disease. Test results must be evaluated in conjunction with other clinical data available to the physician. Individuals who received nasally administered Influenza A vaccine may have positive test results up to 3 days after vaccination. Performed By: #### 1 [id number] #### [facility] [address] [place] [address] Lactic Acidon 05-22-2024 Lactic Acid Lvl 1.0 mmol/L Normal 0.5-2.2 [facility] Comment on above: Performed By: #### 2 [id number] #### [facility] [address] [place] [address] MICRO OTHER TESTSOrdered By: Elke Barrientos on 05-22-2024 Influenzae A Ag Negative (05/22/24 7:26 PM) Normal Negative [facility] Man Sero Influenzae B Ag Negative 2 (05/22/24 7:26 PM) Normal Negative [facility] Comment on above: Interpretive Data: [...] NEG Ctl Pass (05/22/24 7:26 PM) Normal FT Man [facility] Rapid COV Int POS Ctl Pass (05/22/24 7:26 PM) Normal [facility] Man Sero SARS-CoV+SARS-CoV-2 (COVID-19) Ag IA.rapid Ql (Resp) Not Detected 7 (05/22/24 7:26 PM) Normal Not Detected [facility] Comment on above: Interpretive Data: T he BD Veritor System for Rapid Detection of SARS-CoV-2 [...] Coag (PPP) [Time] 21.3 second(s) Low 25.1-36.5 [facility] Comment on above: Result Comment: Para meter 15 days - 4 weeks 1 - 5 months 6 - 11 months 1 - 5 years 6 - 10 years 11 - 17 years PTT Mean: 35.4 (27.6-45.6) Mean: 33.5 (24.8-40.7) Mean: 32.4 (25.1-40.7) Mean: 31.6 (24.0-39.2) Mean: 31.6 (26.9-38.7) Mean: 31.0 (24.6-38.4) Pediatric Reference ranges were obtained from a study by yasmeen Thorpe prepared from 1437 samples obtained at 7 different centers using the same coagulation reagent and instrumentation as [facility]. Currently there are no coagulation studies available worldwide for children to 14 days, and no normal ranges. Heparin therapeutic range (represented by Anti-Factor Xa activity of 0.2 - 0.4 U/mL) corresponds to PTT of 56.6 - 109.0 sec. Performed By: #### 1 [id number] #### [facility] [address] [place] [address] INR Coag (PPP) [Relative time] 1.29 {INR} Invalid Interpretation Code [facility] Center Comment on above: Result Comment: INR results are specifically intended to assess patients stabilized on long-term Anticoagulation therapy suggested INR???s ???Less Intensive Anticoagulation??? 2.0 ??? 3.0 Conventional Range 3.0 ??? 4.5 Performed By: #### 1 [id number] #### [facility] [address] [place] [address] PT Coag (PPP) [Time] 14.5 second(s) High 9.4-12.5 [facility] Comment on above: Result Comment: 15 d [...] ranges were obtained from a study by yasmeen Thorpe prepared from 1437 samples obtained at 7 different centers using the same coagulation reagent and instrumentation as [facility]. Currently there are no coagulation studies available worldwide for children to 14 days, and no normal ranges. Performed By: #### 1 [id number] #### [facility] [address] [place] [address] Rapid COVID Antigen ([facility])on 05-22-2024 Rapid COV Int NEG Ctl Pass Normal [facility] Comment on above: Performed By: #### 2 [id number] #### [facility] [address] [place] [address] Rapid COV Int POS Ctl Pass Normal [facility] Comment on above: Performed By: #### 2 [id number] #### [facility] [address] [place] [address] SARS-CoV+SARS-CoV-2 (COVID-19) Ag IA.rapid Ql (Resp) Not detected Normal Not Detected [facility] Comment on above: Result Comment: The Abroad101??? System for Rapid Detection of SARS-CoV-2 is [...] other viruses or pathogens; and, in the [facility], this test is only authorized for the duration of the declaration that circumstances exist justifying the authorization of emergency use of in vitro diagnostics for detection and/or diagnosis of the virus that causes COVID-19 under Section 564(b)(1) of the Act, 21 U.S.C. ??? 360bbb-3(b)(1), unless the authorization is terminated or revoked sooner. Performed By: #### 2 [id number] #### [facility] [address] [place] [address] Respiratory Panel by PCRon 0 05-22-2024 Adenovirus DNA KYLE+non-probe Ql (Nph) Not detected Normal [facility] Comment on above: Result Comment: Test ing was performed using nucleic acid amplification including Influenza A, Influenza A H1, Influenza A H3, Influenza B, RSV A, RSV B, Adenovirus, Human Metapneumovirus, Parainfluenza 1,2,3, and 4, Rhinovirus, Bordetella parapertussis/bronchiseptica, Bordetella holmesii, and Bordetella pertussis. Performed By: #### 1 [id number] #### [facility] [address] [place] [address] B. holmesii DNA KYLE+probe Ql (Unsp spec) Not detected Normal [facility] Comment on above: Performed By: #### 1 [id number] #### [facility] [address] [place] [address] B. parapertussis DNA KYLE+probe Ql (Upper resp) Not detected Normal Not Detected [facility] Comment on above: Performed By: #### 1 [id number] #### [facility] [address] [place] [address] BORDETELLA PERTUSSIS DNA:PRTHR:PT:XXX:ORD: Not detected Normal Not Detected [facility] Comment on above: Performed By: #### 1 [id number] #### [facility] [address] [place] [address] FLUAV H1 RNA KYLE+non-probe Ql (Nph) Not detected Normal [facility] Comment on above: Performed By: #### 1 [id number] #### [facility] [address] [place] [address] FLUAV H3 RNA KYLE+non-probe Ql (Nph) Not detected Normal [facility] Comment on above: Performed By: #### 1 [id number] #### [facility] [address] [place] [address] FLUAV RNA KYLE+non-probe Ql (Nph) Not detected Normal [facility] Comment on above: Performed By: #### 1 [id number] #### [facility] [address] [place] [address] FLUBV RNA KYLE+non-probe Ql (Nph) Not detected Normal [facility] Comment on above: Performed By: #### 1 [id number] #### [facility] [address] [place] [address] Human Metapneumovirus Not detected Normal [facility] Comment on above: Result Comment: This test result should be correlated with clinical presentations and medical history by a healthcare provider to determine its clinical significance. Performed By: #### 1 [id number] #### [facility] [address] [place] [address] Parainfluenza virus 1 RNA KYLE+non-probe Ql (Nph) Not detected Normal [facility] Comment on above: Performed By: #### 1 [id number] #### [facility] [address] [place] [address] Parainfluenza virus 2 RNA KYLE+non-probe Ql (Nph) Not detected Normal [facility] Comment on above: Performed By: #### 1 [id number] #### [facility] [address] [place] [address] Parainfluenza virus 3 RNA KYLE+non-probe Ql (Nph) Not detected Normal [facility] Comment on above: Performed By: #### 1 [id number] #### [facility] [address] [place] [address] Parainfluenza virus 4 RNA KYLE+non-probe Ql (Nph) Not detected Normal [facility] Comment on above: Performed By: #### 1 [id number] #### [facility] [address] [place] [id number] Resp Panel Intrl QC Pass Normal [facility] Comment on above: Performed By: #### 1 [id number] #### [facility] [address] [place] [id number] Rhinovirus+Enteroviru s RNA KYLE+non-probe Ql (Nph) Not detected Normal [facility] Comment on above: Performed By: #### 1 [id number] #### [facility] [address] [place] [id number] RSV A RNA KYLE+probe Ql (Nph) Not detected Normal [facility] Comment on above: Performed By: #### 1 [id number] #### [facility] [address] [place] [address] RSV B RNA KYLE+probe Ql (Nph) Not detected Normal [facility] Comment on above: Performed By: #### 1 [id number] #### [facility] [address] [place] [id number] Troponinon 05-22-2024 Troponin HS 11.90 pg/mL Normal 10.10-27.10 [facility] Comment on above: Result Comment: The 95% CI (Confidence Interval) PPV (Positive Predictive Value) for myocardial infarction in females is 38 pg/mL, in males 51 pg/mL. The results should be used in conjunction with clinical conditions of myocardial infarction. (Access High Sensitivity Troponin I Instructions For Use, [place], September 2017) Performed By: #### 2 [id number] #### [facility] [address] [place] [id number] UA with Cult Rflxon 05-23-19 25 Bilirubin Ql (U) Negative Normal Negative [facility] Comment on above: Performed By: #### 4 [id number] #### [facility] [address] [place] [id number] Clarity (U) Clear Normal Clear [facility] Comment on above: Performed By: #### 4 [id number] #### [facility] [address] [place] [address] Color (U) Light-Yellow Normal Yellow [facility] Comment on above: Result Comment: Micr oscopic readings are only performed on those samples that meet specific criteria set forth by [facility]. Performed By: #### 4 [id number] #### [facility] [address] [place] [address] Glucose Ql (U) Negative Normal Negative [facility] Comment on above: Performed By: #### 4 [id number] #### [facility] [address] [place] [address] Hemoglobin Auto test strip (U) [Mass/Vol] Negative Normal Negative [facility] Comment on above: Performed By: #### 4 [id number] #### [facility] [address] [place] [address] Ketones Auto test strip Ql (U) Negative Normal Negative [facility] Comment on above: Performed By: #### 4 [id number] #### [facility] [address] [place] [address] Leukocyte esterase Auto test strip Ql (U) Negative Normal Negative [facility] Comment on above: Performed By: #### 4 [id number] #### [facility] [address] [place] [address] Nitrite Auto test strip Ql (U) Negative Normal Negative [facility] Comment on above: Performed By: #### 4 [id number] #### [facility] [address] [place] [address] pH (U) 7.5 [pH] Invalid Interpretation Code 5.0-9.0 [facility] Comment on above: Performed By: #### 4 [id number] #### [facility] [address] [place] [address] Protein Ql (U) Negative Normal Negative [facility] Comment on above: Performed By: #### 4 [id number] #### [facility] [address] [place] [address] Specific gravity (U) [Rel density] 1.013 Invalid Interpretation Code 1.005-1.030 [facility] Comment on above: Performed By: #### 4 [id number] #### [facility] [address] [place] [address] Urobilinogen (U) [Mass/Vol] Negative Normal Negative [facility] Comment on above: Performed By: #### 4 [id number] #### [facility] [address] [place] [id number] Type of Urine collection method Clean Catch Normal [facility] Comment on above: Performed By: #### 4 [id number] #### [facility] [address] [place] [id number] URINALYSISOrdered By: SYSTEM SYSTEM on 05-22-2024 Bilirubin Ql (U) Negative Normal Negativemg/ d L [facility] UA Auto SS Clarity (U) Clear (05/22/24 8:55 PM) Normal Clear [facility] UA Auto SS Color (U) Light-Yellow 1 (05/22/24 8:55 PM) Normal Yellow [facility]A Auto SS Comment on above: Interpretive Data: M icroscopic readings are only performed on those samples that meet specific criteria set forth by [facility]. Glucose Ql (U) Negative Normal Negativemg/d L [facility] UA Auto SS Hemoglobin Auto test strip (U) [Mass/Vol] Negative Normal Negativemg/d L [facility] UA Auto SS Ketones Auto test strip Ql (U) Negative Normal Negativemg/d L [facility] UA Auto SS Leukocyte esterase Auto test strip Ql (U) Negative Normal NegativeLeu/ uL [facility] UA Auto SS Nitrite Auto test strip Ql (U) Negative Normal Negativemg/d L [facility] UA Auto SS pH (U) 7.5 *NA* (05/22/24 8:55 PM) Invalid Interpretation Code 5.0 - 9.0 [facility] UA Auto SS Protein Ql (U) Negative Normal Negativemg/d L [facility] UA Auto SS Specific gravity (U) [Rel density] 1.013 *NA* (05/22/24 8:55 PM) Invalid Interpretation Code 1.005 - 1.030 [facility] UA Auto SS Urobilinogen (U) [Mass/Vol] Negative Normal Negativemg/d L [facility] UA Auto SS URINALYSISOrdered By: Benji mejia on 05-22-2024 UA Spec Desc Clean Catch (05/22/24 8:55 PM) Normal [facility] UA Auto SS eGFRon 05-22-2024 eGFR 103 mL/min/1.73 m2 Normal >=59 [facility] Comment on above: Performed By: #### 1 [id number] #### [facility] [address] [place] [address] Follow-Upon 05-20-2024 Follow-Up [id number] Ike Flannery 1970 F Date Provider Department Center 05/20/2024 184-HERMAN LUI [facility] INF Anthony Heal Family History Adopted: Yes Problem Relation Age of Onset Heart attack Father Family Status - Relation Status Age at Father Level of Service:56917 NC OFFICE/OUTPATIENT ESTABLISHED HIGH MDM 40 MIN Normal [facility] Orders Onlyon 05-20-2024 Orders Only [id number] Ike Flannery 1970 F Date Provider Department Center 05/20/2024 [id number] FRANCES [facility] INF Anthony Heal Family History Adopted: Yes Problem Relation Age of Onset Heart attack Father Family Status - Relation Status Age at Father Normal [facility] 36on 05-16-2024 36 Received call back from [...] with Dr. Lui. Avi Tobar, PharmD, BCPS [facility] Telephoneon 05-16-2024 Telephone [id number] Ike Flannery 1970 F Date Provider Department Center 05/16/2024 104Capo-AVI TOBAR [facility] RX None Family History Adopted: Yes Problem Relation Age of Onset Heart attack Father Family Status - Relation Status Age at Father [facility] CBC AND AUTO DIFFon 05-14-19 25 ABSOLUTE BASOPHIL 0.1 X10E9/L Normal 0.0-0.2 [facility] Comment on above: Performed By: #### C BCA ####[facility] ([id number])5[address] [place] [address] ABSOLUTE NEUTROPHIL 9.3 X10E9/L High 1.5-6.6 [facility] Comment on above: Performed By: #### C BCA ####[facility] ([id number])5[address] [place] [address] Basophils/100 WBC (Bld) 0.6 % Normal [facility] Comment on above: Performed By: #### C BCA ####[facility] ([id number])5[address] [place] [address] Eosinophils (Bld) [#/Vol] 0.1 10*3/uL Normal 0.0-0.4 [facility] Comment on above: Performed By: #### C BCA ####[facility] ([id number])5[address] [place] [address] Eosinophils/100 WBC (Bld) 1.3 % Normal [facility] Comment on above: Performed By: #### C BCA ####[facility] ([id number])[address] [place] [address] Erythrocyte distribution width (RBC) [Ratio] 21.8 % High 11.5-15.0 [facility] Comment on above: Performed By: #### C BCA ####[facility] ([id number])5200 [facility] [place] [address] Hematocrit (Bld) [Volume fraction] 26.6 % Low 35-47 [facility] Comment on above: Performed By: #### C BCA ####[facility] ([id number])5200 [facility] [place] [address] Hemoglobin (Bld) [Mass/Vol] 9.1 g/dL Low 11.7-15.5 [facility] Comment on above: Performed By: #### C BCA ####[facility] ([id number])5200 [facility] [place] [address] Lymphocytes (Bld) [#/Vol] 0.8 10*3/uL Low 1.0-3.5 [facility] Comment on above: Performed By: #### C BCA ####[facility] ([id number])5200 [facility] [place] [address] Lymphocytes/100 WBC (Bld) 7.0 % Normal [facility] Comment on above: Performed By: #### C BCA ####[facility] ([id number])5200 [facility] [place] [address] MCH (RBC) [Entitic mass] 30.7 pg Normal 27-34 [facility] Comment on above: Performed By: #### C BCA ####[facility] ([id number])5[address] [place] [address] MCHC (RBC) [Mass/Vol] 34.4 g/dL Normal 32-36 [facility] Comment on above: Performed By: #### C BCA ####[facility] ([id number])5200 [facility] [place] [address] MCV (RBC) [Entitic vol] 89 fL Normal 80-100 [facility] Comment on above: Performed By: #### C BCA ####[facility] ([id number])5200 [facility] [place] [address] Monocytes (Bld) [#/Vol] 0.7 10*3/uL Normal 0-0.9 [facility] Comment on above: Performed By: #### C BCA ####[facility] ([id number])5200 [place] [address] Monocytes/100 WBC (Bld) 6.4 % Normal [facility] Comment on above: Performed By: #### C BCA ####[facility] ([id number])5[address] [place] [address] Neutrophils/100 WBC (Bld) 84.7 % Normal [facility] Comment on above: Performed By: #### C BCA ####[facility] ([id number])5200 [facility] [place] [address] Platelet mean volume (Bld) [Entitic vol] 7.8 fL Normal 7-12 [facility] Comment on above: Performed By: #### C BCA ####[facility] ([id number])5200 [facility] [place] [address] Platelets (Bld) [#/Vol] 109 10*3/uL Low 150-450 [facility] Comment on above: Performed By: #### C BCA ####[facility] ([id number])5200 [facility] [place] [address] RBC COUNT 2.97 X10E12/L Low 3.80-5.20 [facility] Comment on above: Performed By: #### C BCA ####[facility] ([id number])5200 [facility] [place] [address] WBC (Bld) [#/Vol] 11.0 10*3/uL Normal 4.0-11.0 [facility] Comment on above: Performed By: #### C BCA ####[facility] ([id number])5[address] [place] [address] 36on 05-12-2024 36 Call from Dania at [facility] [place]. Pt to be discharged from [facility] tomorrow with our service resuming care. She [...] Pt is expected to DC 05/13. Normal [facility] BASIC METABOLIC PANLon 05-12 Anion gap [Moles/Vol] 7 mmol/L Normal 5-15 [facility] Comment on above: Performed By: #### B ADARSH CBCA ####[facility] ([id number])5[address] [place] [address] Calcium [Mass/Vol] 9.1 mg/dL Normal 8.5-10.5 [facility] Comment on above: Performed By: #### B ADARSH CBCA ####[facility] ([id number])5200 [facility] [place] [address] Chloride [Moles/Vol] 106 mmol/L Normal 98-109 [facility] Comment on above: Performed By: #### B ADARSH CBCA ####[facility] ([id number])5200 [place] [address] CO2 [Moles/Vol] 27 mmol/L Normal 22-32 [facility] Comment on above: Performed By: #### B ADARSH CBCA ####[facility] ([id number])5200 [facility] [place] [address] Creatinine [Mass/Vol] 0.63 mg/dL Normal 0.40-1.00 [facility] Comment on above: Result Comment: METH OD TRACEABLE TO IDMS STANDARD Performed By: #### B ADARSH, CBCA ####[facility] ([id number])5200 [facility] [place] [address] eGFR (CKD-EPI) NON-RACE DEPENDENT >90 Normal >59 [facility] Comment on above: Result Comment: Repo rted eGFR is based on theCKD-EPI 2020 equation that doesnot use a race coefficient. Performed By: #### B ADARSH, CBCA ####[facility] ([id number])5200 [facility] [place] [address] Glucose [Mass/Vol] 82 mg/dL Normal 65-99 [facility] Comment on above: Performed By: #### B ADARSH, CBCA ####[facility] ([id number])5200 [facility] [place] [address] Potassium [Moles/Vol] 3.5 mmol/L Normal 3.5-5.0 [facility] Comment on above: Performed By: #### B ADARSH CBCA ####[facility] ([id number])5200 [facility] [place] [address] Sodium [Moles/Vol] 140 mmol/L Normal 134-146 [facility] Comment on above: Performed By: #### Willis ALTAMIRANO, CBCA ####[facility] ([id number])5200 [facility] [address] Urea nitrogen [Mass/Vol] 14 mg/dL Normal 5-23 [facility] Comment on above: Performed By: #### B ADARSH, CBCA ####[facility] ([id number])5200 [facility] [place] [address] BONE MARROWon 05-12-2024 BONE MARROW SEE SEPARATE REPORT, REVIEWED BY PATHOLOGIST [facility] Comment on above: Performed By: #### 6 9052-9, [place] ####[facility] ([id number])2[address] [facility] [address]#### EX, 14711-6 ####[facility] ([id number])5200 [place] [address] CBC AND AUTO DIFFon 05-13-19 25 ABSOLUTE BASOPHIL 0.0 X10E9/L Normal 0.0-0.2 [facility] Comment on above: Performed By: #### B MP, CBCA ####[facility] ([id number])5200 [place] [address] ABSOLUTE NEUTROPHIL 0.9 X10E9/L Low 1.5-6.6 [facility] Comment on above: Performed By: #### B MP, CBCA ####[facility] ([id number])5200 [place] [address] Anisocytosis Ql (Bld) 2+ Abnormal NONE [facility] Comment on above: Performed By: #### B MP, CBCA ####[facility] ([id number])5200 [place] [address] Basophils/100 WBC (Bld) 2.0 % Normal [facility] Comment on above: Performed By: #### B MP, CBCA ####[facility] ([id number])5200 [place] [address] Eosinophils (Bld) [#/Vol] 0.1 10*3/uL Normal 0.0-0.4 [facility] Comment on above: Performed By: #### B MP, CBCA ####[facility] ([id number])5200 [place] [address] Eosinophils/100 WBC (Bld) 5.2 % Normal [facility] Comment on above: Performed By: #### B MP, CBCA ####[facility] ([id number])5200 [place] [address] Erythrocyte distribution width (RBC) [Ratio] 22.1 % High 11.5-15.0 [facility] Comment on above: Performed By: #### B MP, CBCA ####[facility] ([id number])5[address] [place] [address] FRAGMENT 1+ Abnormal NONE [facility] Comment on above: Performed By: #### B MP, CBCA ####[facility] ([id number])5200 [facility] [place] [address] Hematocrit (Bld) [Volume fraction] 25.6 % Low 35-47 [facility] Comment on above: Performed By: #### B MP, CBCA ####[facility] ([id number])5200 [place] [address] Hemoglobin (Bld) [Mass/Vol] 8.7 g/dL Low 11.7-15.5 [facility] Comment on above: Performed By: #### B MP, CBCA ####[facility] ([id number])5200 [place] [address] Lymphocytes (Bld) [#/Vol] 0.6 10*3/uL Low 1.0-3.5 [facility] Comment on above: Performed By: #### B MP, CBCA ####[facility] ([id number])5200 [place] [address] Lymphocytes/100 WBC (Bld) 29.6 % Normal [facility] Comment on above: Performed By: #### B MP, CBCA ####[facility] ([id number])5200 [place] [address] MCH (RBC) [Entitic mass] 30.3 pg Normal 27-34 [facility] Comment on above: Performed By: #### B MP, CBCA ####[facility] ([id number])5200 [place] [address] MCHC (RBC) [Mass/Vol] 34.1 g/dL Normal 32-36 [facility] Comment on above: Performed By: #### B MP, CBCA ####[facility] ([id number])5200 [facility] [place] [address] MCV (RBC) [Entitic vol] 89 fL Normal 80-100 [facility] Comment on above: Performed By: #### B MP, CBCA ####[facility] ([id number])5200 [facility] [address] Monocytes (Bld) [#/Vol] 0.4 10*3/uL Normal 0-0.9 [facility] Comment on above: Performed By: #### B MP, CBCA ####[facility] ([id number])5200 [place] [address] Monocytes/100 WBC (Bld) 18.4 % Normal [facility] Comment on above: Performed By: #### B MP, CBCA ####[facility] ([id number])5200 [place] [address] Neutrophils/100 WBC (Bld) 44.8 % Normal [facility] Comment on above: Performed By: #### B MP, CBCA ####[facility] ([id number])5200 [place] [address] OVALOCYTE 1+ Abnormal NONE [facility] Comment on above: Performed By: #### B MP, CBCA ####[facility] ([id number])5200 [place] [address] Platelet mean volume (Bld) [Entitic vol] 6.9 fL Low 7-12 [facility] Comment on above: Performed By: #### B MP, CBCA ####[facility] ([id number])5200 [place] [address] Platelets (Bld) [#/Vol] 97 10*3/uL Low 150-450 [facility] Comment on above: Performed By: #### B MP, CBCA ####[facility] ([id number])5200 [place] [address] RBC COUNT 2.88 X10E12/L Low 3.80-5.20 [facility] Comment on above: Performed By: #### B MP, CBCA ####[facility] ([id number])5200 [place] [address] WBC (Bld) [#/Vol] 2.0 10*3/uL Low 4.0-11.0 [facility] Comment on above: Performed By: #### B MP, CBCA ####[facility] ([id number])5200 [place] [address] DNA and RNA Extract and Hold on 05-12-2024 DNA and RNA Extract and Hold SEE COMMENTS 05/14/2024 04:26 PM Normal [facility] Comment on above: Result Comment: NOTE [...] Molecular Hematopathology Laboratory's test catalog, please contact [facility] at [phone]. Method summary: DNA and RNA were extracted from the received specimen and stored at -80 C. This test was developed and its performance characteristics determined by [facility] in a manner consistent with CLIA requirements. This test has not been cleared or approved by the U.S. Food and Drug Administration. Test Performed by: [facility] - [address] [address] Internship: Colten Sosa Ph.D.; CLIA# [id number] Performed By: #### 6 9052-9, [place] ####[facility] ([id number])[address] [place] [address], [address], [place] [address]#### EXHR, [id number] ####[facility] ([id number])5200 [place] [address] Flow cytometry specialist re view Fredrick (Unsp spec) [Interp]on 05-12-2024 FLOW CYTOMETRY BM SEE SEPARATE REPORT, REVIEWED BY PATHOLOGIST Normal [facility] Comment on above: Performed By: #### 6 9052-9, [place] ####[facility] ([id number])2[address] [facility] [address], [place] [address]#### EXHR, [id number] ####[facility] ([id number])5200 [facility] [place] [address] IR BX AND ASP BONE MARROW SN GL OR MULTon 05-12-2024 IR BX AND ASP BONE MARROW SNGL OR MULT Normal [facility] Karyotype Nom (BM)on 025 CHROMOSOME BONE MARROW SEE COMMENTS 05/20/2024 09:03 AM Normal [facility] Comment on above: Result Comment: NOTE [...] of the testing process was performed at [facility] site [id number], [id number]. Released By Cady Barillas, Ph.D. Test Performed by: [facility] - [address] [address] Internship: Colten Sosa Ph.D.; IA# [id number] Performed By: #### 6 9052-9, [place] ####[facility] ([id number])2130 [facility], [address] [place] [address]#### EXHR, [id number] ####[facility] ([id number])5200 [place] [address] Laboratory comment Fredrick (Repo rt)on 05-12-2024 UNLISTED LAB TEST Sent to reference lab Normal [facility] Comment on above: Performed By: #### 6 9052-9, [place] ####[facility] ([id number])2130 [facility], [address] [place] [address]#### EXHR, [id number] ####[facility] ([id number])5200 [place] [address] MONTREAT GENERIC ORDERon 025 TEST NAME MPNR MYELOPROLIFERATIVE NEOPLASM JAK2 V617F WITH REFLEX TO CALR AND MPL VARIES Normal [facility] TEST RESULT SEE COMMENTS 05/30/2024 10:27 AM [facility] Comment on above: Result Comment: NOTE [...] mutation analysis: Genomic DNA was extracted and [place] sequencing used to evaluate for mutations in MPL, exon 10. The sensitivity of this assay is approximately 20%, such that samples containing lower percentages of mutated DNA will appear negative. Comment: Negative results for [id number], CALR exon 9, and MPL exon 10 [...] developed and its performance characteristics determined by [facility] in a manner consistent with CLIA requirements. This test has not been cleared or approved by the U.S. Food and Drug Administration. Test Performed by: [facility] - [address] [address] Internship: Colten Sosa Ph.D.; CLIA# [id number] MYELODYSPLASTIC SYNDROME (MD S),DIAGNOSTIC FISH, VARIESon 05-12-2024 MYELODYSPLASTIC SYNDROME (MDS),DIAGNOSTIC FISH, VARIES SEE COMMENTS 05/27/2024 03:45 PM Normal [facility] Comment on above: Result Comment: NOTE Test Result Flag Unit RefValue MDS, Diagnostic FISH Result Summary Normal Interpretation See Note The result is within normal limits for the MDS FISH panel. Chromosome studies are normal (reported separately). Result Table See Note Abnormality Name Result Abn% Cutoff% inv(3) RPN1/MECOM fusion Normal <4.0 -5q31(E7W688g0,EGR1x1) Normal <12.0 -5(T2H757,EGR1)x1 Normal <10.0 -7q31(D7Z1x2,Y1L096t2) Normal <12.0 -7(D7Z1,V6L079)x1 Normal <10.0 +8(D8Z2,MYC)x3 Normal <7.0 -17p13.1(TP53x1,G00O6r0) Normal <15.0 -17(TP53,D17Z1)x1 Normal <10.0 -20q12(U20P403z6,54lhdan3) Normal <12.0 Result See Note Interphase FISH is normal for all loci studied. Reason for Referral pancytopenia with low IGG Specimen Bone Marrow Method See Note Locus and probes [Strategy;#Nuclei;Vendor] 3q21(RPN1[GATA2]),3q26.2(MECOM) [DFISH;200;LDT] 5p15.2(A6O756),5q31(EGR1) [COPY#;100;AM] 7CEN(D7Z1),7q31(Q3O036) [COPY#;100;AM] 8CEN(D8Z2),8q24.1(MYC) [COPY#;100;AM] 17p13(TP53),17CEN(D17Z1) [COPY#;100;AM] 20q12(S82B105),20qter [COPY#;100;AM/C] Probe strategies include: DFISH=dual color, double fusion; COPY#=region gain and loss. Scoring Method: Manual Probe vendors include: LDT = [facility] Developed AM = [employer] ([place], [place]) C = [employer]. ([place], [place]) Additional Information See Note A portion of the testing process was performed at [facility] site #[id number]. Disclaimer See Note Applicable to Analyte Specific Reagent (ASR) and Laboratory Developed Tests (LDT). This test was developed and its performance characteristics determined by [facility] in a manner consistent with CLIA requirements. It has not been cleared or approved by the U.S. Food and Drug Administration. This FISH test does not rule out other chromosome abnormalities. Released By Aron Henderson M.D. Test Performed by: [facility] [place] [address] Internship: Colten Sosa Ph.D.; CLIA# [id number] Myeloid Neoplasms, NGSon Additional Notes See Note Normal [facility] Comment on above: Result Comment: NOTE NoneA portion of the testing process was performed at [facility] [employer] site [id number], 106512. Clinical Trials See Note Normal [facility] Comment on above: Result Comment: NOTE Information regarding possible clinical trials for thispatient can be found at the following sites:1). ClinicalTrials.gov:http://clinicaltrials.gov/ct2/search/advanced 2). [facility]:http://www.[facility]/research/clinical-trials3). National Cancer [place]:http://www.cancer.gov/clinicaltrials/search4). The Leukemia and Lymphoma Society's Clinical TrialSupport Centerhttps://www.hematology.org/education/clinicians/clinical-t leij-rtnbipr-gwnmzx Disclaimer See Note Normal [facility] Comment on above: Result Comment: NOTE [...] mutations (clonal cytopenias ofuncertain significance, CCUS) [PMIDs: 23348318, 57391517,[id number], and 16949985]. Distinction between CHIP or CCUSand a myeloid [...] as very largeinsertion/deletion events, copy number alterations (RESIN PAINTER)and gene translocation events are not detected by thisassay. Indication for test PANCYTOPENIA Normal [facility] Interpretation See Note Normal [facility] Comment on above: Result Comment: NOTE No pathogenic genetic alteration is detected in the listedgene regions. This finding does not exclude the presence ofa genetic alteration occurring at an allele frequency belowour established detection limit of 2-4%, or other geneticalterations present in untested gene regions. Method Summary See Note Normal [facility] Comment on above: Result Comment: NOTE [...] of NGS panel:Single base substitutions: accuracy >99%; vzjytogexktxfno624% (intra- and interassay); sensitivity 2-4% variantallele fraction [...] was developed and its performance characteristicsdetermined by [facility] in a manner consistent with CLBannerequirements. This test has not been cleared or approved bythe U.S. Food and Drug Administration. *Some genetic orgenomic alterations such as very large insertion/deletionevents, copy number alterations (RESIN PAINTER) and genetranslocation events are not detected by this assay. NGSHM Result See Interpretation Normal [facility] OncoHeme Panel Gene List See Note Normal [facility] Comment on above: Result Comment: NOTE [...] GATA1(NM_002049.3) exons 2 and 4, start at c.-19-30 before exon2, GATA2 (NM_032638.4) exons 1-6, intron 4, c.1017+1 -1017+870, IDH1 (NM_005896.3) exons 4, 6-8, IDH2(NM_002168.3) exons 3-4, 6-8, JAK2 (NM_004972.3) nowgx93-74, KDM6A (UTX) (NM_021140.3) exons 1-29, KIT(NM_000222.2) exons [...] report. Path Mutations Detected See Note Normal [facility] Comment on above: Result Comment: NOTE None. See below for Variants of Unknown Significance andAdditional Notes. Please see the section of Panel GeneList below for the complete list of genes tested. Reviewed By See Note Normal [facility] Comment on above: Result Comment: NOTE Signing Pathologist: Mary Morin M.D.Test Performed by:[address] Director: Colten Sosa Ph.D.; CLIA# [id number] Variants of Unknown Significance See Note Normal [facility] Comment on above: Result Comment: NOTE 1) ASXL1: Chr20(GRCh37):g.85331976J>T;NM_015338.5(ASXL1):c.1928G>T; p.Xmq323Xic (53%). Thisalteration is present in the gnomAD population databasewith an overall frequency 0.02%. However, missense changesin ASXL1 are not consistent with mvwr-kc-wfnvpvmx mechanismof disease (Roosevelt et al., 2012, [id number]). While thefunction of this variant is not [...] 05-11-2024 Amikacin, Trough, S <0.8 Normal <8.0 [facility] Comment on above: Result Comment: NOTE Test Performed by:[place] [id number] Director: Colten Sosa Ph.D.; CLIA# [id number] Performed By: #### 3 321-7 ####[facility] ([id number])5200 [place] [address] BASIC METABOLIC PANLon 05-11 Anion gap [Moles/Vol] 5 mmol/L Normal 5-15 [facility] Comment on above: Performed By: #### C BCA, BMP ####[facility] ([id number])5200 [place] [address] Calcium [Mass/Vol] 8.9 mg/dL Normal 8.5-10.5 [facility] Comment on above: Performed By: #### C BCA, BMP ####[facility] ([id number])5200 [place] [address] Chloride [Moles/Vol] 106 mmol/L Normal 98-109 [facility] Comment on above: Performed By: #### C BCA, BMP ####[facility] ([id number])5200 [place] [address] CO2 [Moles/Vol] 28 mmol/L Normal 22-32 [facility] Comment on above: Performed By: #### C BCA, BMP ####[facility] ([id number])5200 [place] [address] Creatinine [Mass/Vol] 0.60 mg/dL Normal 0.40-1.00 [facility] Comment on above: Result Comment: METH OD TRACEABLE TO IDMS STANDARD Performed By: #### C BCA, BMP ####[facility] ([id number])5200 [place] [address] eGFR (CKD-EPI) NON-RACE DEPENDENT >90 Normal >59 [facility] Comment on above: Result Comment: Repo rted eGFR is based on theCKD-EPI 2020 equation that doesnot use a race coefficient. Performed By: #### C BCA, BMP ####[facility] ([id number])5200 [place] [address] Glucose [Mass/Vol] 84 mg/dL Normal 65-99 [facility] Comment on above: Performed By: #### C BCA, BMP ####[facility] ([id number])5200 [place] [address] Potassium [Moles/Vol] 3.7 mmol/L Normal 3.5-5.0 [facility] Comment on above: Performed By: #### C BCA, BMP ####[facility] ([id number])5200 [place] [address] Sodium [Moles/Vol] 139 mmol/L Normal 134-146 [facility] Comment on above: Performed By: #### C BCA, BMP ####[facility] ([id number])5200 [place] [address] Urea nitrogen [Mass/Vol] 14 mg/dL Normal 5-23 [facility] Comment on above: Performed By: #### C BCA, BMP ####[facility] ([id number])5200 [place] [address] CBC AND AUTO DIFFon 03-12-20 25 ABSOLUTE BASOPHIL 0.0 X10E9/L Normal 0.0-0.2 [facility] Comment on above: Performed By: #### C BCA, BMP ####[facility] ([id number])5200 [place] [address] ABSOLUTE NEUTROPHIL 0.8 X10E9/L Low 1.5-6.6 [facility] Comment on above: Performed By: #### C BCA, BMP ####[facility] ([id number])5200 [place] [address] Basophils/100 WBC (Bld) 1.7 % Normal [facility] Comment on above: Performed By: #### C BCA, BMP ####[facility] ([id number])5200 [facility] [place] [address] Eosinophils (Bld) [#/Vol] 0.1 10*3/uL Normal 0.0-0.4 [facility] Comment on above: Performed By: #### C BCA, BMP ####[facility] ([id number])5200 [facility] [place] [address] Eosinophils/100 WBC (Bld) 7.5 % Normal [facility] Comment on above: Performed By: #### C BCA, BMP ####[facility] ([id number])5200 [facility] [place] [address] Erythrocyte distribution width (RBC) [Ratio] 21.3 % High 11.5-15.0 [facility] Comment on above: Performed By: #### C BCA, BMP ####[facility] ([id number])5200 [facility] [place] [address] Hematocrit (Bld) [Volume fraction] 24.9 % Low 35-47 [facility] Comment on above: Performed By: #### C BCA, BMP ####[facility] ([id number])5200 [facility] [place] [address] Hemoglobin (Bld) [Mass/Vol] 8.5 g/dL Low 11.7-15.5 [facility] Comment on above: Performed By: #### C BCA, BMP ####[facility] ([id number])5200 [facility] [place] [address] Lymphocytes (Bld) [#/Vol] 0.5 10*3/uL Low 1.0-3.5 [facility] Comment on above: Performed By: #### C BCA, BMP ####[facility] ([id number])5200 [facility] [place] [address] Lymphocytes/100 WBC (Bld) 28.8 % Normal [facility] Comment on above: Performed By: #### C BCA, BMP ####[facility] ([id number])5200 [facility] [place] [address] MCH (RBC) [Entitic mass] 30.2 pg Normal 27-34 [facility] Comment on above: Performed By: #### C BCA, BMP ####[facility] ([id number])5200 [facility] [place] [address] MCHC (RBC) [Mass/Vol] 34.2 g/dL Normal 32-36 [facility] Comment on above: Performed By: #### C LUCIA, BMP ####[facility] ([id number])5200 [place] [address] MCV (RBC) [Entitic vol] 89 fL Normal 80-100 [facility] Comment on above: Performed By: #### C LUCIA, BMP ####[facility] ([id number])5200 [place] [address] Monocytes (Bld) [#/Vol] 0.3 10*3/uL Normal 0-0.9 [facility] Comment on above: Performed By: #### C LUCIA, BMP ####[facility] ([id number])5200 [place] [address] Monocytes/100 WBC (Bld) 15.4 % Normal [facility] Comment on above: Performed By: #### C LUCIA, BMP ####[facility] ([id number])5200 [place] [address] Neutrophils/100 WBC (Bld) 46.6 % Normal [facility] Comment on above: Performed By: #### C LUCIA, BMP ####[facility] ([id number])5200 [facility] [place] [address] OVALOCYTE 1+ Abnormal NONE [facility] Comment on above: Performed By: #### C LUCIA, BMP ####[facility] ([id number])5200 [place] [address] Platelet mean volume (Bld) [Entitic vol] 7.0 fL Normal 7-12 [facility] Comment on above: Performed By: #### C BCA, BMP ####[facility] ([id number])5[address] [place] [address] Platelets (Bld) [#/Vol] 94 10*3/uL Low 150-450 [facility] Comment on above: Performed By: #### C BCA, BMP ####[facility] ([id number])5[address] [place] [address] RBC COUNT 2.82 X10E12/L Low 3.80-5.20 [facility] Comment on above: Performed By: #### C LUCIA, BMP ####[facility] ([id number])5200 [facility] [place] [address] WBC (Bld) [#/Vol] 1.8 10*3/uL Low 4.0-11.0 [facility] Comment on above: Performed By: #### C LUCIA, BMP ####[facility] ([id number])5[address] [place] [address] MONTREAT GENERIC ORDERon 05-11- 025 TEST NAME NAIMA AMIKACIN PEAK Normal [facility] Comment on above: Performed By: #### G O ####[facility] ([id number])5[address] [place] [address] TEST RESULT SEE COMMENTS 05/12/2024 03:14 PM Abnormal [facility] Comment on above: Result Comment: NOTE Test Result Flag Unit RefValue Amikacin, Peak, S 62.8 H mcg/mL 20.0 - 35.0 Toxic:>40.0 mcg/mL Test Performed by: [place] [id number] Internship: Colten Sosa Ph.D.; CLIA# [id number] Performed By: #### G O ####[facility] ([id number])5200 [place] [address] CBC AND AUTO DIFFon 05-11-19 25 ABSOLUTE BASOPHIL 0.0 X10E9/L Normal 0.0-0.2 [facility] Comment on above: Performed By: #### C BCA ####[facility] ([id number])5200 [facility] [place] [address] Band form neutrophils/100 WBC (Bld) 1.0 % Normal [facility] Comment on above: Performed By: #### C BCA ####[facility] ([id number])5200 [facility] [place] [address] Basophils/100 WBC (Bld) 1.0 % Normal [facility] Comment on above: Performed By: #### C BCA ####[facility] ([id number])5200 [facility] [place] [address] Eosinophils (Bld) [#/Vol] 0.2 10*3/uL Normal 0.0-0.4 [facility] Comment on above: Performed By: #### C BCA ####[facility] ([id number])5200 [facility] [place] [address] Eosinophils/100 WBC (Bld) 9.0 % Normal [facility] Comment on above: Performed By: #### C BCA ####[facility] ([id number])5200 [facility] [place] [address] Erythrocyte distribution width (RBC) [Ratio] 21.6 % High 11.5-15.0 [facility] Comment on above: Performed By: #### C BCA ####[facility] ([id number])5200 [facility] [place] [address] Hematocrit (Bld) [Volume fraction] 23.4 % Low 35-47 [facility] Comment on above: Performed By: #### C BCA ####[facility] ([id number])5200 [facility] [place] [address] Hemoglobin (Bld) [Mass/Vol] 7.8 g/dL Low 11.7-15.5 [facility] Comment on above: Performed By: #### C BCA ####[facility] ([id number])5200 [facility] [place] [address] HYPOCHROMIA 1+ Abnormal NONE [facility] Comment on above: Performed By: #### C BCA ####[facility] ([id number])5200 [facility] [place] [address] Lymphocytes (Bld) [#/Vol] 0.4 10*3/uL Low 1.0-3.5 [facility] Comment on above: Performed By: #### C BCA ####[facility] ([id number])5200 [place] [address] Lymphocytes/100 WBC (Bld) 24.0 % Normal [facility] Comment on above: Performed By: #### C BCA ####[facility] ([id number])5200 [facility] [place] [address] MCH (RBC) [Entitic mass] 29.8 pg Normal 27-34 [facility] Comment on above: Performed By: #### C BCA ####[facility] ([id number])5200 [facility] [address] MCHC (RBC) [Mass/Vol] 33.4 g/dL Normal 32-36 [facility] Comment on above: Performed By: #### C BCA ####[facility] ([id number])5200 [facility] [place] [address] MCV (RBC) [Entitic vol] 89 fL Normal 80-100 [facility] Comment on above: Performed By: #### C BCA ####[facility] ([id number])5200 [facility] [place] [address] Monocytes (Bld) [#/Vol] 0.2 10*3/uL Normal 0-0.9 [facility] Comment on above: Performed By: #### C BCA ####[facility] ([id number])5200 [address] [place] [address] Monocytes/100 WBC (Bld) 10.0 % Normal [facility] Comment on above: Performed By: #### C BCA ####[facility] ([id number])5200 [facility] [place] [address] Neutrophils (Bld) [#/Vol] 1.0 10*3/uL Low 1.5-6.6 [facility] Comment on above: Performed By: #### C BCA ####[facility] ([id number])5200 [facility] [place] [address] Platelet mean volume (Bld) [Entitic vol] 6.9 fL Low 7-12 [facility] Comment on above: Performed By: #### C BCA ####[facility] ([id number])5200 [facility] [place] [address] Platelets (Bld) [#/Vol] 81 10*3/uL Low 150-450 [facility] Comment on above: Performed By: #### C BCA ####[facility] ([id number])5200 [facility] [place] [address] POLYCHROMASIA 1+ Abnormal NONE [facility] Comment on above: Performed By: #### C BCA ####[facility] ([id number])5200 [facility] [place] [place] [address] RBC COUNT 2.63 X10E12/L Low 3.80-5.20 [facility] Comment on above: Performed By: #### C BCA ####[facility] ([id number])5200 [facility] [place] [address] SEG NEUTROPHIL 55.0 % Normal [facility] Comment on above: Performed By: #### C BCA ####[facility] ([id number])5200 [facility] [place] [address] WBC (Bld) [#/Vol] 1.8 10*3/uL Low 4.0-11.0 [facility] Comment on above: Performed By: #### C LUCIA ####[facility] ([id number])9400 [place] [address] Surgical Pathologyon 025 Surgical Pathology Normal [facility] Comment on above: Result Comment: [facility] [address] [place] [address] Bone Marrow ConsultationPatient Name:IKE FLANNERY:1970 (Age: 53)Gender:FTaken:05/10/2024Reported:05/18/2024Physician(s):Kaye Kulkarni, ESPERANZA ([phone])Copy To:Baljinder Jones, [facility] Centeression #:[id number]. Rec. #:[id number]: #[id number] Pathologic Diagnosis1, 2). Bone marrow, aspirate, clot [...] antigen acquisition are identified on maturing myeloid cells.[place] on the lymphoid population demonstrates a mixed population of phenotypically unremarkable T-cells, polyclonal B-cells, and natural killer cells, without a detectable monoclonal population. No significant plasma cell population is identified.Immunophenotyping antibodies tested: CD2, CD3, CD4, CD5, CD7, CD8, CD10, CD13, CD16, CD19, CD20, CD23, CD33, CD34, CD38, CD43, CD45, CD56, CD117, CD123, CD138, TRCB1, [place], and Lambda.Immunophenotyping Comment:Immunophenotyping has been used in this diagnostic evaluation. This test was developed and its performance characteristics determined by the [facility] Department. It has not been [...] testing.Electronically Signed OutReece Gross MDInterpretation performed at [employer], [address] [place] [address], License number: [id number].Clinical HistoryPancytopenia with low IGG.Gross Description1. Received in B+ labeled ALMA DELIA, right iliac crest clot is red-brown clotted hemorrhagic material, 1.1 x 0.4 x 0.2 cm in aggregate. The specimen is entirely submitted in a single cassette. (1, ns, [id number], m6.1) MG2. Received in B+ labeled ALMA DELIA, right iliac crest core is a buckley-mahmood cylindrical core segment of bone, 2.1 cm in length by 0.2 cm in diameter, admixed with reddish-brown hemorrhagic material aggregating to 0.2 x 0.1 x 0.1 cm. The bone is submitted in cassette A after decalcification in Rapid [facility]. (1, ns, [id number], m6.1) MGmjg/05/12/2024SANMicroscopic FindingsANATOMIC SITE: 1. Right Iliac Crest aspirate [...] crest aspirate2: Right iliac crest biopsyFee Codes(s):1; 14320, 29016, 40770, 65328, 298818; 58078, 70883, 06752, 88692 36on 05-09-2024 36 Tia has chiquis admitted at [facility] and followed by Dr Noguera. I gave ok to continue Amikacin at discharge to [facility] as Gino Flower had messaged Catarina here. Normal [facility] Amikacin trough [Mass/Vol]on 05-09-2024 Amikacin, Trough, S 17.7 mcg/mL High <8.0 [facility] Comment on above: Result Comment: NOTE Toxic:>10.0 mcg/mLTest Performed by:[address] Director: Colten Sosa Ph.D.; CLIA# [id number] Performed By: #### G O, 3321-7 ####[facility] ([id number])5200 [place] [address] CBC AND AUTO DIFFon 05-10-19 25 Band form neutrophils/100 WBC (Bld) 2.0 % Normal [facility] Comment on above: Performed By: #### C BCA ####[facility] ([id number])5200 [place] [address] Eosinophils (Bld) [#/Vol] 0.1 10*3/uL Normal 0.0-0.4 [facility] Comment on above: Performed By: #### C BCA ####[facility] ([id number])5200 [place] [address] Eosinophils/100 WBC (Bld) 6.0 % Normal [facility] Comment on above: Performed By: #### C BCA ####[facility] ([id number])5200 [place] [address] Erythrocyte distribution width (RBC) [Ratio] 20.9 % High 11.5-15.0 [facility] Comment on above: Performed By: #### C BCA ####[facility] ([id number])5200 [facility] [place] [address] Hematocrit (Bld) [Volume fraction] 23.8 % Low 35-47 [facility] Comment on above: Performed By: #### C BCA ####[facility] ([id number])5200 [place] [address] Hemoglobin (Bld) [Mass/Vol] 7.9 g/dL Low 11.7-15.5 [facility] Comment on above: Performed By: #### C BCA ####[facility] ([id number])5200 [facility] [place] [address] Lymphocytes (Bld) [#/Vol] 0.5 10*3/uL Low 1.0-3.5 [facility] Comment on above: Performed By: #### C BCA ####[facility] ([id number])5200 [facility] [place] [address] Lymphocytes/100 WBC (Bld) 27.0 % Normal [facility] Comment on above: Performed By: #### C BCA ####[facility] ([id number])5200 [facility] [place] [address] MCH (RBC) [Entitic mass] 29.6 pg Normal 27-34 [facility] Comment on above: Performed By: #### C BCA ####[facility] ([id number])5200 [facility] [place] [address] MCHC (RBC) [Mass/Vol] 33.0 g/dL Normal 32-36 [facility] Comment on above: Performed By: #### C BCA ####[facility] ([id number])5200 [facility] [place] [address] MCV (RBC) [Entitic vol] 90 fL Normal 80-100 [facility] Comment on above: Performed By: #### C BCA ####[facility] ([id number])5200 [facility] [place] [address] Metamyelocytes/100 WBC (Bld) 2.0 % Normal [facility] Comment on above: Performed By: #### C BCA ####[facility] ([id number])5200 [place] [address] Monocytes (Bld) [#/Vol] 0.3 10*3/uL Normal 0-0.9 [facility] Comment on above: Performed By: #### C BCA ####[facility] ([id number])5200 [facility] [address] Monocytes/100 WBC (Bld) 13.0 % Normal [facility] Comment on above: Performed By: #### C BCA ####[facility] ([id number])5200 [place] [place] [address] Neutrophils (Bld) [#/Vol] 1.1 10*3/uL Low 1.5-6.6 [facility] Comment on above: Performed By: #### C BCA ####[facility] ([id number])5200 [facility] [address] OVALOCYTE 1+ Abnormal NONE [facility] Comment on above: Performed By: #### C BCA ####[facility] ([id number])5200 [place] [address] Platelet mean volume (Bld) [Entitic vol] 6.9 fL Low 7-12 [facility] Comment on above: Performed By: #### C BCA ####[facility] ([id number])5200 [place] [address] Platelets (Bld) [#/Vol] 87 10*3/uL Low 150-450 [facility] Comment on above: Performed By: #### C BCA ####[facility] ([id number])5200 [facility] [place] [address] POLYCHROMASIA 1+ Abnormal NONE [facility] Comment on above: Performed By: #### C BCA ####[facility] ([id number])5200 [place] [address] RBC COUNT 2.66 X10E12/L Low 3.80-5.20 [facility] Comment on above: Performed By: #### C BCA ####[facility] ([id number])5200 [place] [address] SEG NEUTROPHIL 50.0 % Normal [facility] Comment on above: Performed By: #### C BCA ####[facility] ([id number])5200 [place] [address] WBC (Bld) [#/Vol] 2.0 10*3/uL Low 4.0-11.0 [facility] Comment on above: Performed By: #### C BCA ####[facility] ([id number])5200 [place] [address] CREATININEon 05-09-2024 Creatinine [Mass/Vol] 0.67 mg/dL Normal 0.40-1.00 [facility] Comment on above: Result Comment: METH OD TRACEABLE TO IDMS STANDARD Performed By: #### F EPR, SPE, 51880-7, 2131-11, SIFE, 2284-8, FLCH ####[facility] ([id number])2130 [facility], [address] [place] [address]#### LIVR, 4679-7, 2276-4, 69832-4, 2532-0, CLERICAL INVESTIGATOR ####[facility] ([id number])5200 [place] [address] eGFR (CKD-EPI) NON-RACE DEPENDENT >90 Normal >59 [facility] Comment on above: Result Comment: Repo rted eGFR is based on theCKD-EPI 2020 equation that doesnot use a race coefficient. Performed By: #### F EPR, SPE, 33571-0, 9, SIFE, 2284-8, FLCH ####[facility] ([id number])[address], [address] [place] [address]#### LIVR, 4679-7, 2276-4, 49279-9, 2532-0, CLERICAL INVESTIGATOR ####[facility] ([id number])5207 [place] [address] Clinical Pathology Blood Sme ar Reviewon 05-09-2024 Clinical Pathology Blood Smear Review Normal [facility] Comment on above: Result Comment: [facility] [address] [place] [address] Clinical Pathology ReportPatient Name:IKE FLANNERY:1970 (Age: 53)Gender:FTaken:05/09/2024Reported:05/10/2024Physician(s):Sai Gross MD ([phone])Copy To: Rec. #:[id number]: #[id number] Pathologic DiagnosisPERIPHERAL BLOOD:- Normocytic anemia with increased [...] Electronically Signed Outrxd/05/10/2024Reece Gross MDInterpretation performed at [facility] [employer], [address] [place] [address], License number: [id number].Clinical TntmdcoD90.890 BLOOD SMEAR EVALUATIONCBC (05/09/2024 0628): WBC = 2.0 X10E9/L; HGB = 7.9 g/dL; HCT = 23.8%; MCV = 90 fL; PLT = 87 X10E9/LSpecimen(s) Received Blood Smear ReviewFee Codes(s):1; 16745 FERRITINon 05-09-2024 Ferritin [Mass/Vol] 760 ng/mL High 11-307 [facility] Comment on above: Performed By: #### F EPR, SPE, 10319-4, 2131-11, SIFE, 228-8, FLCH ####[facility] ([id number])[address], [address] [place], [place] [address]#### LIVR, 4679-7, 2276-4, 96749-0, 2532-0, CLERICAL INVESTIGATOR ####[facility] ([id number])5200 [place] [address] FREE LIGHT CHAINSon 05-10-19 25 FREE JAVIER/LAMBD RATIO 0.66 Normal 0.26-1.65 [facility] Comment on above: Performed By: #### F EPR, SPE, 97007-1, 2131-11, SIFE, 2283-8, FLCH ####[facility] ([id number])[address], [address] [place] [address]#### LIVR, 4679-7, 2276-4, 06063-8, 2532-0, CLERICAL INVESTIGATOR ####[facility] ([id number])5200 [place] [address] FREE KAPPA LT CHAINS 1.22 mg/dL Normal 0.33-1.94 [facility] Comment on above: Performed By: #### F EPR, SPE, 68115-6, 2131-11, SIFE, 228-8, FLCH ####[facility] ([id number])[address], [address] [place] [address]#### LIVR, 4679-7, 2276-4, 91690-6, 2532-0, CLERICAL INVESTIGATOR ####[facility] ([id number])5200 [place] [address] FREE LAMBDA LT CHAINS 1.85 mg/dL Normal 0.57-2.63 [facility] Comment on above: Performed By: #### F EPR, SPE, 92610-0, 9, SIFE, 2284-8, FLCH ####[facility] ([id number])2130 [facility], [address] [place] [address]#### LIVR, 4679-7, 2276-4, 74690-3, 2532-0, CLERICAL INVESTIGATOR ####[facility] ([id number])5200 [place] [address] Folate [Mass/Vol]on 05-10-19 25 FOLIC ACID 5.2 ng/mL Low >5.8 [facility] Comment on above: Result Comment: NEW REFERENCE RANGE Performed By: #### F EPR, SPE, 17078-9, 9, SIFE, 2284-8, FLCH ####[facility] ([id number])2130 [facility], [address] [place] [address]#### LIVR, 4679-7, 2276-4, 59883-7, 2532-0, CLERICAL INVESTIGATOR ####[facility] ([id number])5200 [place] [address] Haptoglobin Nephelometry [Ma ss/Vol]on 05-09-2024 HAPTOGLOBIN 233 mg/dL High 32-228 [facility] Comment on above: Performed By: #### F EPR, SPE, 89692-8, 9, SIFE, 2284-8, FLCH ####[facility] ([id number])2130 [facility], [address] [place] [address]#### LIVR, 4679-7, 2276-4, 50635-0, 2532-0, CLERICAL INVESTIGATOR ####[facility] ([id number])5200 [place] [address] IRON PROFILEon 05-09-2024 Iron [Mass/Vol] 29 ug/dL Low 50-170 [facility] Comment on above: Performed By: #### F EPR, SPE, 14578-1, 9, SIFE, 2284-8, FLCH ####[facility] ([id number])[address], [address], [place] [address]#### LIVR, 4679-7, 2276-4, 05922-3, 2532-0, CLERICAL INVESTIGATOR ####[facility] ([id number])5200 [place] [address] IRON BINDING 225 ug/dL Low 250-425 [facility] Comment on above: Performed By: #### F EPR, SPE, 14502-9, 2131-11, SIFE, 2284-8, FLCH ####[facility] ([id number])[address], [address], [place] [address]#### LIVR, 4679-7, 2276-4, 66004-9, 2532-0, CLERICAL INVESTIGATOR ####[facility] ([id number])5200 [place] [address] IRON SATURATION 13 % SATURATION Low 15-50 [facility] Comment on above: Performed By: #### F EPR, SPE, 90946-5, 9, SIFE, 2284-8, FLCH ####[facility] ([id number])[address], [address], [place] [address]#### LIVR, 4679-7, 2276-4, 59797-9, 2532-0, CLERICAL INVESTIGATOR ####[facility] ([id number])5200 [place] [address] LDH [Catalytic activity/Vol] on 05-09-2024 LDH 105 U/L Normal 100-235 [facility] Comment on above: Performed By: #### F EPR, SPE, 09865-5, 2132-9, SIFE, 2284-8, FLCH ####[facility] ([id number])[address], [address] [place] [address]#### LIVR, 4679-7, 2276-4, 35819-1, 2532-0, CLERICAL INVESTIGATOR ####[facility] ([id number])5200 [place] [address] LIVER PANELon 05-09-2024 Albumin [Mass/Vol] 3.0 g/dL Low 3.2-5.3 [facility] Comment on above: Performed By: #### F EPR, SPE, 95609-3, 2131-9, SIFE, 2284-8, FLCH ####[facility] ([id number])[address], [address] [place] [address]#### LIVR, 4679-7, 2276-4, 82973-5, 2532-0, CLERICAL INVESTIGATOR ####[facility] ([id number])5200 [place] [address] ALP [Catalytic activity/Vol] 50 U/L Normal 39-130 [facility] Comment on above: Performed By: #### F EPR, SPE, 84767-4, 2131-9, SIFE, 2284-8, FLCH ####[facility] ([id number])[address], [address] [place] [address]#### LIVR, 4679-7, 2276-4, 98070-6, 2532-0, CLERICAL INVESTIGATOR ####[facility] ([id number])5200 [place] [address] ALT [Catalytic activity/Vol] 11 U/L Normal 0-31 [facility] Comment on above: Performed By: #### F EPR, SPE, 74501-0, 2-9, SIFE, 2284-8, FLCH ####[facility] ([id number])[address], [address] [place] [address]#### LIVR, 4679-7, 2276-4, 66317-1, 2532-0, CLERICAL INVESTIGATOR ####[facility] ([id number])5200 [place] [address] AST [Catalytic activity/Vol] 12 U/L Normal 0-41 [facility] Comment on above: Performed By: #### F EPR, SPE, 84235-9, 2131-9, SIFE, 2284-8, FLCH ####[facility] ([id number])[address], [address] [place] [address]#### LIVR, 4679-7, 2276-4, 96526-0, 2532-0, CLERICAL INVESTIGATOR ####[facility] ([id number])5200 [place] [address] Bilirubin [Mass/Vol] 0.4 mg/dL Normal 0.3-1.2 [facility] Comment on above: Performed By: #### F EPR, SPE, 84914-0, 9, SIFE, 4-8, FLCH ####[facility] ([id number])[address], [address] [place] [address]#### LIVR, 4679-7, 2276-4, 12625-0, 2532-0, CLERICAL INVESTIGATOR ####[facility] ([id number])5200 [place] [address] Bilirubin.direct [Mass/Vol] 0.1 mg/dL Normal 0.0-0.4 [facility] Comment on above: Performed By: #### F EPR, SPE, 77990-4, 2131-9, SIFE, 2284-8, FLCH ####[facility] ([id number])[address], [address] [place] [address]#### LIVR, 4679-7, 2276-4, 72729-0, 2532-0, CLERICAL INVESTIGATOR ####[facility] ([id number])5200 [place] [address] Protein [Mass/Vol] 5.0 g/dL Low 6.0-8.0 [facility] Comment on above: Performed By: #### F EPR, SPE, 34078-2, 2132-9, SIFE, 2284-8, FLCH ####[facility] ([id number])[address] [place] [address], [address], [place] [address]#### LIVR, 4679-7, 2276-4, 66707-7, 2532-0, CLERICAL INVESTIGATOR ####[facility] ([id number])5200 [place] [address] MONTREAT GENERIC ORDERon 025 TEST NAME NAIMA AMIKACIN PEAK RNOGEL SERUM Normal [facility] Comment on above: Performed By: #### Rafi Martinez, 3321-7 ####[facility] ([id number])5200 [place] [address] TEST RESULT SEE COMMENTS 05/10/2024 01:58 PM Abnormal [facility] Comment on above: Result Comment: NOTE Test Result Flag Unit RefValue Amikacin, Peak, S 17.4 L mcg/mL 20.0 - 35.0 Test Performed by: [place] [id number] Internship: Colten Sosa Ph.D.; CLIA# [id number] Performed By: #### Rafi Martinez, 3321-7 ####[facility] ([id number])5200 [place] [address] comment (Bld) [Interp]on 05-09-2024 STAFF REVIEW NOTE Normal [facility] Comment on above: Result Comment: [facility] [employer] [facility] [address] [place] [address] Clinical Pathology ReportPatient Name:IKE FLANNERY:1970 (Age:53)Gender:FTaken:05/09/2024Reported:05/10/2024Physician(s):Marlon Gross MD ([phone])Copy To: Rec.#:[id number]: #[id number] Pathologic DiagnosisPERIPHERAL BLOOD:- Normocytic anemia with increased [...] Electronically Signed Outrxd/05/10/2024Reece Gross MDInterpretation performed at [employer], [address] [place] [address], License number: [id number].Clinical VfsoftyN88.890 BLOOD SMEAR EVALUATIONCBC (05/09/2024 0628): WBC = 2.0 X10E9/L; HGB = 7.9 g/dL; HCT =23.8%; MCV = 90 fL; PLT = 87 X10E9/LSpecimen(s) ReceivedBlood Smear ReviewFee Codes(s):1; 32573 Performed By: #### F EPR, SPE, 91184-7, 9, SIFE, 2284-8, FLCH ####[facility] ([id number])[address], [address] [place] [address]#### LIVR, 4679-7, 2276-4, 76338-1, 2532-0, CLERICAL INVESTIGATOR ####[facility] ([id number])[address] [place] [address] Reticulocytes/100 RBC (Bld)o n 05-09-2024 RETICULOCYTE COUNT 2.5 % High 0.4-2.2 [facility] Comment on above: Performed By: #### F EPR, SPE, 53462-0, 9, SIFE, 2284-8, FLCH ####[facility] ([id number])[address], [address] [place] [address]#### LIVR, 4679-7, 2276-4, 14319-6, 2532-0, CLERICAL INVESTIGATOR ####[facility] ([id number])[address] [place] [address] SERUM IMMUNOFIXATIONon 05-09 IgA [Mass/Vol] 70 mg/dL Normal 68-378 [facility] Comment on above: Performed By: #### F EPR, SPE, 57871-7, 9, SIFE, 2284-8, FLCH ####[facility] ([id number])[address], [address] [place] [address]#### LIVR, 4679-7, 2276-4, 33593-3, 2532-0, CLERICAL INVESTIGATOR ####[facility] ([id number])[address] [place] [address] IgG [Mass/Vol] 337 mg/dL Low 635-1741 [facility] Comment on above: Performed By: #### F EPR, SPE, 06011-9, 2131-9, SIFE, 2284-8, FLCH ####[facility] ([id number])[address], [address] [place] [address]#### LIVR, 4679-7, 2276-4, 94855-1, 2532-0, CLERICAL INVESTIGATOR ####[facility] ([id number])[address] [place] [address] IgM [Mass/Vol] 23 mg/dL Low 45-281 [facility] Comment on above: Performed By: #### F EPR, SPE, 38661-9, 2131-9, SIFE, 2284-8, FLCH ####[facility] ([id number])[address], [address] [place] [address]#### LIVR, 4679-7, 2276-4, 27617-7, 2532-0, CLERICAL INVESTIGATOR ####[facility] ([id number])[address] [place] [address] IMMUNE PROFILE INTERP Unremarkable patte rn and quantitation, no monoclonal bands. Normal [facility] Comment on above: Performed By: #### F EPR, SPE, 89450-0, 9, SIFE, 2284-8, FLCH ####[facility] ([id number])[address], [address] [place] [address]#### LIVR, 4679-7, 2276-4, 43864-7, 2532-0, CLERICAL INVESTIGATOR ####[facility] [facility] ([id number])5[address] [place] [address] SERUM PROTEIN ELECTROPHORESI Son 05-09-2024 Albumin [Mass/Vol] 2.5 g/dL Low 3.4-5.3 [facility] Comment on above: Performed By: #### F EPR, SPE, 64066-8, 2131-9, SIFE, 2284-8, FLCH ####[facility] ([id number])[address], [address], [place] [address]#### LIVR, 4679-7, 2276-4, 84647-0, 2532-0, CLERICAL INVESTIGATOR ####[facility] ([id number])[address] [place] [address] ALPHA 1 GLOBULIN 0.4 g/dL Normal 0.1-0.4 [facility] Comment on above: Performed By: #### F EPR, SPE, 09686-7, 9, SIFE, 2284-8, FLCH ####[facility] ([id number])[address], [address], [place] [address]#### LIVR, 4679-7, 2276-4, 17641-2, 2532-0, CLERICAL INVESTIGATOR ####[facility] ([id number])[address] [place] [address] ALPHA 2 GLOBULIN 0.6 g/dL Normal 0.4-1.1 [facility] Comment on above: Performed By: #### F EPR, SPE, 43297-1, 9, SIFE, 2284-8, FLCH ####[facility] ([id number])[address], [address] [place] [address]#### LIVR, 4679-7, 2276-4, 74589-1, 2532-0, CLERICAL INVESTIGATOR ####[facility] ([id number])[address] [place] [address] BETA GLOBULIN 0.6 g/dL Normal 0.5-1.2 [facility] Comment on above: Performed By: #### F EPR, SPE, 77258-3, 9, SIFE, 2284-8, FLCH ####[facility] ([id number])[address], [address] [place] [address], [place] [address]#### LIVR, 4679-7, 2276-4, 50142-2, 2532-0, CLERICAL INVESTIGATOR ####[facility] ([id number])[address] [place] [address] GAMMA GLOBULIN 0.3 g/dL Low 0.5-1.6 [facility] Comment on above: Performed By: #### F EPR, SPE, 72365-6, 9, SIFE, 2284-8, FLCH ####[facility] ([id number])[address], [address], [place] [address]#### LIVR, 4679-7, 2276-4, 25656-8, 2532-0, CLERICAL INVESTIGATOR ####[facility] ([id number])[address] [place] [address] PROT. ELECTROPHORESIS INTERP Unremarkable protein distribution, no monoclonal bands. Normal [facility] Comment on above: Performed By: #### F EPR, SPE, 94867-9, 9, SIFE, 4-8, FLCH ####[facility] ([id number])[address], [address] [place] [address]#### LIVR, 4679-7, 2276-4, 45382-0, 2532-0, CLERICAL INVESTIGATOR ####[facility] ([id number])[address] [place] [address] Protein [Mass/Vol] 4.4 g/dL Low 6.0-8.0 [facility] Comment on above: Performed By: #### F EPR, SPE, 76208-9, 9, SIFE, 2284-8, FLCH ####[facility] ([id number])[address], [address], [place] [address]#### LIVR, 4679-7, 2276-4, 36147-3, 2532-0, CLERICAL INVESTIGATOR ####[facility] ([id number])[address] [place] [address] VITAMIN B12on 05-09-2024 Cobalamin (Vitamin B12) [Mass/Vol] 1264 pg/mL High 180-914 [facility] Comment on above: Performed By: #### F EPR, SPE, 74535-6, 2132-9, SIFE, 2284-8, FLCH ####[facility] ([id number])[address] [facility], [address] [address]#### LIVR, 4679-7, 2276-4, 23687-5, 2532-0, CLERICAL INVESTIGATOR ####[facility] ([id number])[address] [place] [address] CBC AND AUTO DIFFon 05-09-19 25 ABSOLUTE BASOPHIL 0.0 X10E9/L Normal 0.0-0.2 [facility] Comment on above: Performed By: #### C BCA ####[facility] ([id number])[address] [place] [address] ABSOLUTE NEUTROPHIL 1.2 X10E9/L Low 1.5-6.6 [facility] Comment on above: Performed By: #### C BCA ####[facility] ([id number])[address] [place] [address] Basophils/100 WBC (Bld) 0.6 % Normal [facility] Comment on above: Performed By: #### C BCA ####[facility] ([id number])[address] [place] [address] Eosinophils (Bld) [#/Vol] 0.2 10*3/uL Normal 0.0-0.4 [facility] Comment on above: Performed By: #### C BCA ####[facility] ([id number])[address] [place] [address] Eosinophils/100 WBC (Bld) 8.7 % Normal [facility] Comment on above: Performed By: #### C BCA ####[facility] ([id number])[address] [place] [address] Erythrocyte distribution width (RBC) [Ratio] 21.2 % High 11.5-15.0 [facility] Comment on above: Performed By: #### C BCA ####[facility] ([id number])[address] [place] [address] FRAGMENT 1+ Abnormal NONE [facility] Comment on above: Performed By: #### C BCA ####[facility] ([id number])[address] [place] [address] Hematocrit (Bld) [Volume fraction] 26.0 % Low 35-47 [facility] Comment on above: Performed By: #### C BCA ####[facility] ([id number])[address] [facility] [place] [address] Hemoglobin (Bld) [Mass/Vol] 8.8 g/dL Low 11.7-15.5 [facility] Comment on above: Performed By: #### C BCA ####[facility] ([id number])5[address] [facility] [place] [address] Lymphocytes (Bld) [#/Vol] 0.6 10*3/uL Low 1.0-3.5 [facility] Comment on above: Performed By: #### C BCA ####[facility] ([id number])5[address] [facility] [place] [address] Lymphocytes/100 WBC (Bld) 27.4 % Normal [facility] Comment on above: Performed By: #### C BCA ####[facility] ([id number])[address] [facility] [place] [address] MCH (RBC) [Entitic mass] 30.1 pg Normal 27-34 [facility] Comment on above: Performed By: #### C BCA ####[facility] ([id number])[address] [facility] [place] [address] MCHC (RBC) [Mass/Vol] 33.9 g/dL Normal 32-36 [facility] Comment on above: Performed By: #### C BCA ####[facility] ([id number])[address] [facility] [address] MCV (RBC) [Entitic vol] 89 fL Normal 80-100 [facility] Comment on above: Performed By: #### C BCA ####[facility] ([id number])[address] [place] [address] Monocytes (Bld) [#/Vol] 0.3 10*3/uL Normal 0-0.9 [facility] Comment on above: Performed By: #### C BCA ####[facility] ([id number])5[address] [facility] [address] Monocytes/100 WBC (Bld) 12.8 % Normal [facility] Comment on above: Performed By: #### C BCA ####[facility] ([id number])5[address] [facility] [address] Neutrophils/100 WBC (Bld) 50.5 % Normal [facility] Comment on above: Performed By: #### C BCA ####[facility] ([id number])5[address] [facility] [address] Platelet mean volume (Bld) [Entitic vol] 7.1 fL Normal 7-12 [facility] Comment on above: Performed By: #### C BCA ####[facility] ([id number])5[address] [facility] [address] Platelets (Bld) [#/Vol] 103 10*3/uL Low 150-450 [facility] Comment on above: Performed By: #### C BCA ####[facility] ([id number])5[address] [facility] [address] RBC COUNT 2.92 X10E12/L Low 3.80-5.20 [facility] Comment on above: Performed By: #### C BCA ####[facility] ([id number])5[address] [facility] [place] [address] WBC (Bld) [#/Vol] 2.3 10*3/uL Low 4.0-11.0 [facility] Comment on above: Performed By: #### C BCA ####[facility] ([id number])[address] [facility] [place] [address] CBC AND AUTO DIFFon 05-08-19 25 Eosinophils (Bld) [#/Vol] 0.1 10*3/uL Normal 0.0-0.4 [facility] Comment on above: Performed By: #### C BCA ####[facility] ([id number])[address] [facility] [place] [address] Eosinophils/100 WBC (Bld) 7.0 % Normal [facility] Comment on above: Performed By: #### C BCA ####[facility] ([id number])[address] [place] [address] Erythrocyte distribution width (RBC) [Ratio] 20.7 % High 11.5-15.0 [facility] Comment on above: Performed By: #### C BCA ####[facility] ([id number])[address] [place] [address] FRAGMENT 1+ Abnormal NONE [facility] Comment on above: Performed By: #### C BCA ####[facility] ([id number])[address] [place] [address] Hematocrit (Bld) [Volume fraction] 23.7 % Low 35-47 [facility] Comment on above: Performed By: #### C BCA ####[facility] ([id number])[address] [facility] [place] [address] Hemoglobin (Bld) [Mass/Vol] 8.0 g/dL Low 11.7-15.5 [facility] Comment on above: Performed By: #### C BCA ####[facility] ([id number])[address] [place] [address] Lymphocytes (Bld) [#/Vol] 0.6 10*3/uL Low 1.0-3.5 [facility] Comment on above: Performed By: #### C BCA ####[facility] ([id number])5[address] [facility] [place] [address] Lymphocytes/100 WBC (Bld) 30.0 % Normal [facility] Comment on above: Performed By: #### C BCA ####[facility] ([id number])[address] [place] [address] MCH (RBC) [Entitic mass] 29.9 pg Normal 27-34 [facility] Comment on above: Performed By: #### C BCA ####[facility] ([id number])[address] [place] [address] MCHC (RBC) [Mass/Vol] 33.8 g/dL Normal 32-36 [facility] Comment on above: Performed By: #### C BCA ####[facility] ([id number])5[address] [place] [place] [address] MCV (RBC) [Entitic vol] 88 fL Normal 80-100 [facility] Comment on above: Performed By: #### C BCA ####[facility] ([id number])5[address] [facility] [place] [address] Monocytes (Bld) [#/Vol] 0.2 10*3/uL Normal 0-0.9 [facility] Comment on above: Performed By: #### C BCA ####[facility] ([id number])5[address] [facility] [place] [address] Monocytes/100 WBC (Bld) 9.0 % Normal [facility] Comment on above: Performed By: #### C BCA ####[facility] ([id number])5[address] [facility] [address] Neutrophils (Bld) [#/Vol] 1.2 10*3/uL Low 1.5-6.6 [facility] Comment on above: Performed By: #### C BCA ####[facility] ([id number])5[address] [place] [address] Platelet mean volume (Bld) [Entitic vol] 7.3 fL Normal 7-12 [facility] Comment on above: Performed By: #### C BCA ####[facility] ([id number])[address] [facility] [place] [address] Platelets (Bld) [#/Vol] 101 10*3/uL Low 150-450 [facility] Comment on above: Performed By: #### C BCA ####[facility] ([id number])[address] [place] [address] RBC COUNT 2.68 X10E12/L Low 3.80-5.20 [facility] Comment on above: Performed By: #### C BCA ####[facility] ([id number])[address] [place] [address] SEG NEUTROPHIL 54.0 % Normal [facility] Comment on above: Performed By: #### C BCA ####[facility] ([id number])5[address] [facility] [place] [address] TEARDROP 1+ Abnormal NONE [facility] Comment on above: Performed By: #### C BCA ####[facility] ([id number])5[address] [facility] LUZS[facility] [place] [address] WBC (Bld) [#/Vol] 2.1 10*3/uL Low 4.0-11.0 [facility] Comment on above: Performed By: #### C BCA ####[facility] ([id number])[address] [place] [address] 36on 05-06-2024 36 RN called to request most recent labs be faxed to [facility] ID. Fax number confirmed Normal [facility] BASIC METABOLIC PANLon 05-06 Anion gap [Moles/Vol] 3 mmol/L Low 5-15 [facility] Comment on above: Performed By: #### C BCA, BMP ####[facility] ([id number])5[address] [facility] [place] [address] Calcium [Mass/Vol] 8.8 mg/dL Normal 8.5-10.5 [facility] Comment on above: Performed By: #### C BCA, BMP ####[facility] ([id number])5[address] [facility] [place] [address] Chloride [Moles/Vol] 105 mmol/L Normal 98-109 [facility] Comment on above: Performed By: #### C BCA, BMP ####[facility] ([id number])[address] [place] [address] CO2 [Moles/Vol] 29 mmol/L Normal 22-32 [facility] Comment on above: Performed By: #### C BCA, BMP ####[facility] ([id number])5[address] [facility] [place] [address] Creatinine [Mass/Vol] 0.67 mg/dL Normal 0.40-1.00 [facility] Comment on above: Result Comment: METH OD TRACEABLE TO IDMS STANDARD Performed By: #### C BCA, BMP ####[facility] ([id number])5[address] [facility] [place] [address] eGFR (CKD-EPI) NON-RACE DEPENDENT >90 Normal >59 [facility] Comment on above: Result Comment: Repo rted eGFR is based on theCKD-EPI 2020 equation that doesnot use a race coefficient. Performed By: #### C BCA, BMP ####[facility] ([id number])5[address] [facility] [place] [address] Glucose [Mass/Vol] 97 mg/dL Normal 65-99 [facility] Comment on above: Performed By: #### C BCA, BMP ####[facility] ([id number])5200 [facility] [place] [address] Potassium [Moles/Vol] 3.8 mmol/L Normal 3.5-5.0 [facility] Comment on above: Performed By: #### C BCA, BMP ####[facility] ([id number])5[address] [facility] [place] [address] Sodium [Moles/Vol] 137 mmol/L Normal 134-146 [facility] Comment on above: Performed By: #### C BCA, BMP ####[facility] ([id number])5[address] [facility] [place] [address] Urea nitrogen [Mass/Vol] 19 mg/dL Normal 5-23 [facility] Comment on above: Performed By: #### C BCA, BMP ####[facility] ([id number])5[address] [facility] [place] [address] CBC AND AUTO DIFFon 05-07-19 25 ABSOLUTE BASOPHIL 0.0 X10E9/L Normal 0.0-0.2 [facility] Comment on above: Performed By: #### C BCA, BMP ####[facility] ([id number])5[address] [place] [address] ABSOLUTE NEUTROPHIL 1.4 X10E9/L Low 1.5-6.6 [facility] Comment on above: Performed By: #### C BCA, BMP ####[facility] ([id number])[address] [place] [address] Basophils/100 WBC (Bld) 0.6 % Normal [facility] Comment on above: Performed By: #### C BCA, BMP ####[facility] ([id number])[address] [place] [address] Eosinophils (Bld) [#/Vol] 0.2 10*3/uL Normal 0.0-0.4 [facility] Comment on above: Performed By: #### C BCA, BMP ####[facility] ([id number])[address] [place] [address] Eosinophils/100 WBC (Bld) 7.6 % Normal [facility] Comment on above: Performed By: #### C BCA, BMP ####[facility] ([id number])[address] [place] [address] Erythrocyte distribution width (RBC) [Ratio] 20.4 % High 11.5-15.0 [facility] Comment on above: Performed By: #### C BCA, BMP ####[facility] ([id number])[address] [place] [address] FRAGMENT 1+ Abnormal NONE [facility] Comment on above: Performed By: #### C BCA, BMP ####[facility] ([id number])5[address] [place] [address] Hematocrit (Bld) [Volume fraction] 20.3 % Low 35-47 [facility] Comment on above: Performed By: #### C BCA, BMP ####[facility] ([id number])5200 [place] [address] Hemoglobin (Bld) [Mass/Vol] 6.9 g/dL Critically low 11.7-15.5 [facility] Comment on above: Performed By: #### C BCA, BMP ####[facility] ([id number])5200 [place] [address] Lymphocytes (Bld) [#/Vol] 0.5 10*3/uL Low 1.0-3.5 [facility] Comment on above: Performed By: #### C BCA, BMP ####[facility] ([id number])5[address] [place] [address] Lymphocytes/100 WBC (Bld) 22.8 % Normal [facility] Comment on above: Performed By: #### C BCA, BMP ####[facility] ([id number])5[address] [place] [address] MCH (RBC) [Entitic mass] 30.4 pg Normal 27-34 [facility] Comment on above: Performed By: #### C BCA, BMP ####[facility] ([id number])5[address] [place] [address] MCHC (RBC) [Mass/Vol] 34.1 g/dL Normal 32-36 [facility] Comment on above: Performed By: #### C BCA, BMP ####[facility] ([id number])5[address] [place] [address] MCV (RBC) [Entitic vol] 89 fL Normal 80-100 [facility] Comment on above: Performed By: #### C BCA, BMP ####[facility] ([id number])[address] [place] [address] Monocytes (Bld) [#/Vol] 0.2 10*3/uL Normal 0-0.9 [facility] Comment on above: Performed By: #### C LUCIA, BMP ####[facility] ([id number])[address] [place] [address] Monocytes/100 WBC (Bld) 7.8 % Normal [facility] Comment on above: Performed By: #### C LUCIA, BMP ####[facility] ([id number])5[address] [place] [address] Neutrophils/100 WBC (Bld) 61.2 % Normal [facility] Comment on above: Performed By: #### C LUCIA, BMP ####[facility] ([id number])[address] [place] [address] OVALOCYTE 1+ Abnormal NONE [facility] Comment on above: Performed By: #### C LUCIA, BMP ####[facility] ([id number])5200 [facility] [place] [address] Platelet mean volume (Bld) [Entitic vol] 7.1 fL Normal 7-12 [facility] Comment on above: Performed By: #### C LUCIA, BMP ####[facility] ([id number])[address] [place] [address] Platelets (Bld) [#/Vol] 108 10*3/uL Low 150-450 [facility] Comment on above: Performed By: #### C LUCIA, BMP ####[facility] ([id number])5200 [place] [address] RBC COUNT 2.27 X10E12/L Low 3.80-5.20 [facility] Comment on above: Performed By: #### C LUCIA, BMP ####[facility] ([id number])5200 [place] [address] WBC (Bld) [#/Vol] 2.3 10*3/uL Low 4.0-11.0 [facility] Comment on above: Performed By: #### C BCA, BMP ####[facility] ([id number])5200 [facility] [place] [address] HGBon 05-06-2024 Hematocrit (Bld) [Volume fraction] 25.9 % Low 35-47 [facility] Comment on above: Performed By: #### H H ####[facility] ([id number])5200 [facility] [place] [address] Hemoglobin (Bld) [Mass/Vol] 8.7 g/dL Low 11.7-15.5 [facility] Comment on above: Performed By: #### H H ####[facility] ([id number])5200 [facility] [place] [address] BASIC METABOLIC PANLon 05-05 Anion gap [Moles/Vol] 3 mmol/L Low 5-15 [facility] Comment on above: Performed By: #### B MP, CBC ####[facility] ([id number])5200 [facility] [place] [address] Calcium [Mass/Vol] 8.5 mg/dL Normal 8.5-10.5 [facility] Comment on above: Performed By: #### B MP, CBC ####[facility] ([id number])5200 [facility] [place] [address] Chloride [Moles/Vol] 104 mmol/L Normal 98-109 [facility] Comment on above: Performed By: #### B MP, CBC ####[facility] ([id number])5200 [facility] [place] [address] CO2 [Moles/Vol] 27 mmol/L Normal 22-32 [facility] Comment on above: Performed By: #### B MP, CBC ####[facility] ([id number])5200 [facility] [place] [address] Creatinine [Mass/Vol] 0.84 mg/dL Normal 0.40-1.00 [facility] Comment on above: Result Comment: METH OD TRACEABLE TO IDMS STANDARD Performed By: #### B MP, CBC ####[facility] ([id number])5200 [place] [address] GFR/1.73 sq M.predicted among non-blacks MDRD (S/P/Bld) [Vol rate/Area] 83 mL/min/{1.73_m2} Normal >59 [facility] Comment on above: Result Comment: Repo rted eGFR is based on theCKD-EPI 2020 equation that doesnot use a race coefficient. Performed By: #### B MP, CBC ####[facility] ([id number])5200 [place] [address] Glucose [Mass/Vol] 95 mg/dL Normal 65-99 [facility] Comment on above: Performed By: #### B MP, CBC ####[facility] LAB ([id number])5200 [place] [address] Potassium [Moles/Vol] 4.1 mmol/L Normal 3.5-5.0 [facility] Comment on above: Performed By: #### B MP, CBC ####[facility] LAB ([id number])[address] [place] [address] Sodium [Moles/Vol] 134 mmol/L Normal 134-146 [facility] Comment on above: Performed By: #### B MP, CBC ####[facility] LAB ([id number])[address] [place] [address] Urea nitrogen [Mass/Vol] 21 mg/dL Normal 5-23 [facility] Comment on above: Performed By: #### B MP, CBC ####[facility] LAB ([id number])[address] [place] [address] COMPLETE BLOOD COUNTon 05-05 Erythrocyte distribution width (RBC) [Ratio] 23.3 % High 11.5-15.0 [facility] Comment on above: Performed By: #### B MP, CBC ####[facility] LAB ([id number])5200 [place] [address] Hematocrit (Bld) [Volume fraction] 19.0 % Low 35-47 [facility] Comment on above: Performed By: #### B MP, CBC ####[facility] LAB ([id number])5200 [facility] [place] [address] Hemoglobin (Bld) [Mass/Vol] 6.3 g/dL Critically low 11.7-15.5 [facility] Comment on above: Performed By: #### B MP, CBC ####[facility] LAB ([id number])[address] [place] [address] MCH (RBC) [Entitic mass] 29.5 pg Normal 27-34 [facility] Comment on above: Performed By: #### B MP, CBC ####[facility] LAB ([id number])5200 [facility] [place] [address] MCHC (RBC) [Mass/Vol] 33.5 g/dL Normal 32-36 [facility] Comment on above: Performed By: #### B MP, CBC ####[facility] LAB ([id number])[address] [place] [address] MCV (RBC) [Entitic vol] 88 fL Normal 80-100 [facility] Comment on above: Performed By: #### B MP, CBC ####[facility] LAB ([id number])[address] [place] [address] Platelet mean volume (Bld) [Entitic vol] 6.9 fL Low 7-12 [facility] Comment on above: Performed By: #### B MP, CBC ####[facility] LAB ([id number])[address] [place] [address] Platelets (Bld) [#/Vol] 119 10*3/uL Low 150-450 [facility] Comment on above: Performed By: #### B MP, CBC ####[facility] LAB ([id number])[address] [place] [address] RBC COUNT 2.15 X10E12/L Low 3.80-5.20 [facility] Comment on above: Performed By: #### B MP, CBC ####[facility] ([id number])5200 [place] [address] WBC (Bld) [#/Vol] 3.1 10*3/uL Low 4.0-11.0 [facility] Comment on above: Performed By: #### B MP, CBC ####[facility] ([id number])5200 [place] [address] HGBon 05-05-2024 Hematocrit (Bld) [Volume fraction] 21.5 % Low 35-47 [facility] Comment on above: Performed By: #### H H ####[facility] LAB ([id number])5200 [place] [address] Hemoglobin (Bld) [Mass/Vol] 7.4 g/dL Low 11.7-15.5 [facility] Comment on above: Performed By: #### H H ####[facility] LAB ([id number])[address] [place] [address] ANAEROBE CULTUREon Bacteria identified Anaer cx Nom (Unsp spec) SPECIMEN NOTES SPEC A CULTURE RESULTS NO GROWTH 5 DAYS Normal [facility] Comment on above: Performed By: #### 6 35-3 ####[facility] LAB ([id number])[address], [place] [address] Bacteria identified Anaer cx Nom (Unsp spec) SPECIMEN NOTES SPEC D CULTURE RESULTS NO GROWTH 5 DAYS Normal [facility] Comment on above: Performed By: #### 6 35-3 ####[facility] LAB ([id number])[address], [place] [address] Bacteria identified Anaer cx Nom (Unsp spec) SPECIMEN NOTES SPEC B CULTURE RESULTS NO GROWTH 5 DAYS Normal [facility] Comment on above: Performed By: #### 6 35-3 ####[facility] ([id number])[address], [place] [address] Bacteria identified Anaer cx Nom (Unsp spec) SPECIMEN NOTES SPEC C CULTURE RESULTS NO GROWTH 5 DAYS [facility] Comment on above: Performed By: #### 6 35-3 ####[facility] LAB ([id number])[address], [address], [place] [address] Amikacin trough [Mass/Vol]on 05-04-2024 Amikacin, Trough, S <0.8 Normal <8.0 [facility] Comment on above: Result Comment: NOTE Test Performed by:[address] [id number] Director: Colten Sosa Ph.D.; CLIA# [id number] Performed By: #### 3 321-7 ####[facility] ([id number])5[address] [place] [address] FUNGAL CULTUREon 05-04-2024 Fungus identified Cx Nom (Unsp spec) SPECIMEN NOTES SPEC D FUNGAL SMEAR NO FUNGAL ELEMENTS SEEN ON DIRECT SMEAR CULTURE RESULTS Mycobacterium Abscessus FOR SUSCEPTIBILITY, SEE PREVIOUS REPORT. [facility] Comment on above: Performed By: #### 5 80-1 ####[facility] ([id number])[address] [address], [place] [address] Fungus identified Cx Nom (Unsp spec) SPECIMEN NOTES SPEC B FUNGAL SMEAR NO FUNGAL ELEMENTS SEEN ON DIRECT SMEAR CULTURE RESULTS Mycobacterium Abscessus FOR SUSCEPTIBILITY, SEE PREVIOUS REPORT. [facility] Comment on above: Performed By: #### 5 80-1 ####[facility] ([id number])[address], [address], [place] [address] Fungus identified Cx Nom (Unsp spec) SPECIMEN NOTES SPEC A FUNGAL SMEAR NO FUNGAL ELEMENTS SEEN ON DIRECT SMEAR CULTURE RESULTS Mycobacterium Abscessus FOR SUSCEPTIBILITY, SEE PREVIOUS REPORT. [facility] Comment on above: Performed By: #### 5 80-1 ####[facility] ([id number])[address], [address], [place] [address] Fungus identified Cx Nom (Unsp spec) SPECIMEN NOTES SPEC C FUNGAL SMEAR NO FUNGAL ELEMENTS SEEN ON DIRECT SMEAR CULTURE RESULTS Mycobacterium Abscessus FOR SUSCEPTIBILITY, SEE PREVIOUS REPORT. Normal [facility] Comment on above: Performed By: #### 5 80-1 ####[facility] ([id number])[address] [address] TISSUE CULTUREon 05-04-2024 Bacteria identified Aer cx Nom (Tiss) SPECIMEN NOTES SPEC C GRAM STAIN 0 WHITE BLOOD CELLS/LPF 0 SQUAMOUS EPITHELIAL CELLS/LPF NO ORGANISMS SEEN CULTURE RESULTS NO GROWTH 7 DAYS Normal [facility] Comment on above: Performed By: #### 6 27-0 ####[facility] ([id number])[address] [address] Bacteria identified Aer cx Nom (Tiss) SPECIMEN NOTES SPEC B GRAM STAIN 0 WHITE BLOOD CELLS/LPF 0 SQUAMOUS EPITHELIAL CELLS/LPF NO ORGANISMS SEEN CULTURE RESULTS NO GROWTH 7 DAYS Normal [facility] Comment on above: Performed By: #### 6 27-0 ####[facility] ([id number])[address], [address], [place] [address] Bacteria identified Aer cx Nom (Tiss) SPECIMEN NOTES SPEC A GRAM STAIN 0 WHITE BLOOD CELLS/LPF 0 SQUAMOUS EPITHELIAL CELLS/LPF NO ORGANISMS SEEN CULTURE RESULTS NO GROWTH 7 DAYS Normal [facility] Comment on above: Performed By: #### 6 27-0 ####[facility] ([id number])[address], [address], [place] [address] Bacteria identified Aer cx Nom (Tiss) SPECIMEN NOTES SPEC D GRAM STAIN 0 WHITE BLOOD CELLS/LPF 0 SQUAMOUS EPITHELIAL CELLS/LPF NO ORGANISMS SEEN CULTURE RESULTS NO GROWTH 7 DAYS Normal [facility] Comment on above: Performed By: #### 6 27-0 ####[facility] ([id number])[address], [place] [address] BASIC METABOLIC PANLon 05-03 Anion gap [Moles/Vol] 6 mmol/L Normal 5-15 [facility] Comment on above: Performed By: #### 6 793-4 ####[facility] ([id number])[address] [facility] [address] [place] [address]#### BMP, CBC ####[facility] ([id number])[address] [place] [address] Calcium [Mass/Vol] 8.7 mg/dL Normal 8.5-10.5 [facility] Comment on above: Performed By: #### 6 793-4 ####[facility] ([id number])0 [facility], [address] [place] [address]#### BMP, CBC ####[facility] ([id number])[address] [place] [address] Chloride [Moles/Vol] 108 mmol/L Normal 98-109 [facility] Comment on above: Performed By: #### 6 793-4 ####[facility] ([id number])0 [facility] [address] [place] [address]#### BMP, CBC ####[facility] ([id number])[address] [place] [address] CO2 [Moles/Vol] 23 mmol/L Normal 22-32 [facility] Comment on above: Performed By: #### 6 793-4 ####[facility] ([id number])[address] [address] [place] [address]#### BMP, CBC ####[facility] ([id number])[address] [place] [address] Creatinine [Mass/Vol] 0.93 mg/dL Normal 0.40-1.00 [facility] Comment on above: Result Comment: METH OD TRACEABLE TO IDMS STANDARD Performed By: #### 6 793-4 ####[facility] ([id number])2[address] [facility] [address] [place] [address]#### BMP, CBC ####[facility] ([id number])5[address] [place] [address] GFR/1.73 sq M.predicted among non-blacks MDRD (S/P/Bld) [Vol rate/Area] 73 mL/min/{1.73_m2} Normal >59 [facility] Comment on above: Result Comment: Repo rted eGFR is based on theCKD-EPI 2020 equation that doesnot use a race coefficient. Performed By: #### 6 793-4 ####[facility] ([id number])[address] [address] [place] [address]#### BMP, CBC ####[facility] ([id number])5[address] [place] [address] Glucose [Mass/Vol] 159 mg/dL High 65-99 [facility] Comment on above: Performed By: #### 6 793-4 ####[facility] ([id number])2[address] [facility] [address] [place] [address]#### BMP, CBC ####[facility] ([id number])5[address] [place] [address] Potassium [Moles/Vol] 4.3 mmol/L Normal 3.5-5.0 [facility] Comment on above: Performed By: #### 6 793-4 ####[facility] ([id number])[address] [address] [place] [address]#### BMP, CBC ####[facility] ([id number])5[address] [place] [address] Sodium [Moles/Vol] 137 mmol/L Normal 134-146 [facility] Comment on above: Performed By: #### 6 793-4 ####[facility] ([id number])[address] [address] [place] [address]#### BMP, CBC ####[facility] ([id number])5[address] [place] [address] Urea nitrogen [Mass/Vol] 21 mg/dL Normal 5-23 [facility] Comment on above: Performed By: #### 6 793-4 ####[facility] ([id number])[address] [address]#### BMP, CBC ####[facility] ([id number])520 [place] [address] BLOOD CULTUREon 05-03-2024 Bacteria identified Aer cx Nom (Bld) SPECIMEN NOTES SUBOPTIMAL VOLUME OF BLOOD COLLECTED, RESULTS MAY BE AFFECTED. CULTURE RESULTS NO GROWTH 5 DAYS Normal [facility] Comment on above: Performed By: #### 1 7928-3 ####[facility] ([id number])[address] [address] Bacteria identified Aer cx Nom (Bld) CULTURE RESULTS NO GROWTH 5 DAYS Normal [facility] COMPLETE BLOOD COUNTon 05-03 Erythrocyte distribution width (RBC) [Ratio] 22.3 % High 11.5-15.0 [facility] Comment on above: Performed By: #### 6 793-4 ####[facility] ([id number])[address] [address]#### BMP, CBC ####[facility] ([id number])520 [place] [address] Hematocrit (Bld) [Volume fraction] 22.7 % Low 35-47 [facility] Comment on above: Performed By: #### 6 793-4 ####[facility] ([id number])[address] [address] [place] [address]#### BMP, CBC ####[facility] ([id number])5[address] [place] [address] Hemoglobin (Bld) [Mass/Vol] 7.5 g/dL Low 11.7-15.5 [facility] Comment on above: Performed By: #### 6 793-4 ####[facility] ([id number])[address], [address] [place] [address]#### BMP, CBC ####[facility] ([id number])[address] [place] [address] MCH (RBC) [Entitic mass] 29.4 pg Normal 27-34 [facility] Comment on above: Performed By: #### 6 793-4 ####[facility] ([id number])[address] [address] [place] [address]#### BMP, CBC ####[facility] ([id number])[address] [place] [address] MCHC (RBC) [Mass/Vol] 33.2 g/dL Normal 32-36 [facility] Comment on above: Performed By: #### 6 793-4 ####[facility] ([id number])[address] [address] [place] [address]#### BMP, CBC ####[facility] ([id number])[address] [place] [address] MCV (RBC) [Entitic vol] 89 fL Normal 80-100 [facility] Comment on above: Performed By: #### 6 793-4 ####[facility] ([id number])[address] [facility] [address] [place] [address]#### BMP, CBC ####[facility] ([id number])[address] [place] [address] Platelet mean volume (Bld) [Entitic vol] 7.0 fL Normal 7-12 [facility] Comment on above: Performed By: #### 6 793-4 ####[facility] ([id number])[address] [address] [place] [address]#### BMP, CBC ####[facility] ([id number])5[address] [place] [address] Platelets (Bld) [#/Vol] 143 10*3/uL Low 150-450 [facility] Comment on above: Performed By: #### 6 793-4 ####[facility] ([id number])[address] [address]#### BMP, CBC ####[facility] ([id number])5[address] [place] [address] RBC COUNT 2.56 X10E12/L Low 3.80-5.20 [facility] Comment on above: Performed By: #### 6 793-4 ####[facility] ([id number])[address] [address]#### BMP, CBC ####[facility] ([id number])[address]199 [place] [address] WBC (Bld) [#/Vol] 2.7 10*3/uL Low 4.0-11.0 [facility] Comment on above: Performed By: #### 6 793-4 ####[facility] ([id number])[address] [place] [address]#### BMP, CBC ####[facility] ([id number])0 [place] [address] Prealbumin IA [Mass/Vol]on 0 05-03-2024 Prealbumin [Mass/Vol] 12 mg/dL Low 18-45 [facility] Comment on above: Performed By: #### 6 793-4 ####[facility] ([id number])[address] [place] [address]#### BMP, CBC ####[facility] ([id number])[address] [place] [address] 36on 05-02-2024 36 Anabela with [facility] lab faxing over Amikacin trough from 04/27 Normal [facility] ANAEROBE CULTUREon Bacteria identified Anaer cx Nom (Unsp spec) SPECIMEN NOTES SPECIMEN A CULTURE RESULTS NO GROWTH 5 DAYS Normal [facility] Comment on above: Performed By: #### 6 35-3 ####[facility] ([id number])[address], [place] [address] CATHETER TIP CULTUREon 05-02 Bacteria identified Cx Nom (Catheter tip) CULTURE RESULTS NO GROWTH 2 DAYS Normal [facility] Comment on above: Performed By: #### 1 9128-8 ####[facility] ([id number])[address], [place] [address] FUNGAL CULTUREon 05-02-2024 Fungus identified Cx Nom (Unsp spec) [facility] Comment on above: Performed By: #### 5 80-1 ####[facility] ([id number])[address], [place] [address] SEND OUT TESTon 05-02-2024 SENT TO [facility] VIA FED EX [phone] Normal [facility] SPECIMEN ISOLATE FROM LEFT CHEST TISSUE SPECIMEN A Normal [facility] TEST NAME: AFB4 TO [facility] Normal [facility] TEST RESULT See separate report. View in OnBase or in [employer]. Normal [facility] TISSUE CULTUREon 05-02-2024 Bacteria identified Aer cx Nom (Tiss) SPECIMEN NOTES SPECIMEN A GRAM STAIN >25 WHITE BLOOD CELLS/LPF 0 SQUAMOUS EPITHELIAL CELLS/LPF NO ORGANISMS SEEN CULTURE RESULTS MANY Mycobacterium Abscessus SEE FUNGUS CULTURE FOR SPECIATION AND SUSCEPTIBILITY [facility] Comment on above: Performed By: #### 6 27-0 ####[facility] ([id number])[address], [place] [address] Documentationon 04-28-2024 Documentation [id number] Ike Flannery 1970 F Date Provider Department Center 04/28/2024 [facility] Family History Adopted: Yes Problem Relation Age of Onset Heart attack Father Family Status - Relation Status Age at Father Normal [facility] Documentation [id number] Ike Flannery 1970 F Date Provider Department Center 04/28/2024 [facility] Family History Adopted: Yes Problem Relation Age of Onset Heart attack Father Family Status - Relation Status Age at Father Normal [facility] Documentationon 04-27-2024 Documentation [id number] Ike Flannery 1970 F Date Provider Department Center 04/27/2024 184-HERMAN LUI [facility] Family History Adopted: Yes Problem Relation Age of Onset Heart attack Father Family Status - Relation Status Age at Father Normal [facility] Abstracton 04-26-2024 Abstract [id number] Ike Flannery 1970 F Date Provider Department Center 04/26/2024 [facility] Family History Adopted: Yes Problem Relation Age of Onset Heart attack Father Family Status - Relation Status Age at Father Normal [facility] Documentationon 04-26-2024 Documentation [id number] Ike Flannery 1970 F Date Provider Department Center 04/26/2024 [facility] Family History Adopted: Yes Problem Relation Age of Onset Heart attack Father Family Status - Relation Status Age at Father Normal [facility] 36on 04-25-2024 36 RN called to request most recent labs be faxed to [facility]. Fax number confirmed Normal [facility] Abstracton 04-25-2024 Abstract [id number] Ike Flannery 1970 F Date Provider Department Center 04/25/2024 Andrews-NAEEM TOBARHEL [facility] Family History Adopted: Yes Problem Relation Age of Onset Heart attack Father Family Status - Relation Status Age at Father Normal [facility] Follow-Upon 04-20-2024 Follow-Up [id number] Ike Flannery 1970 F Date Provider Department Center 04/20/2024 [facility] INF [facility] Family History Adopted: Yes Problem Relation Age of Onset Heart attack Father Family Status - Relation Status Age at Father Level of Service:20937 NC OFFICE/OUTPATIENT ESTABLISHED MOD MDM [address] [facility] 04-19-2024 36 On 04/18/24 at 09:20 AM, on behalf of Dr. Herman Lui, I contacted [facility] Microbiology Department to check for any updates on the patient's cultures sent to [facility]. This is the second phone call that I have made to follow up, with the first call being conducted on 11APR2024. Based on the timeline listed on the [facility] microbiological report, it is anticipated that final susceptibilities should have resulted from the 02/19/24 tissue culture and so be available to be faxed over to [facility]. I gave my fax number to the [facility] laboratory personnel and they stated that they would fax the microbiology report(s) to me when available. I asked the laboratory personnel to please call [facility] laboratory to try to expedite follow up since the patient has an appointment on 20APR2024. Will continue to monitor and follow up as appropriate. Avi Tobar, SukiD, BCPS; 04/19/[address] [facility] Telephoneon 04-19-2024 Telephone [id number] Ike Flannery 1970 F Date Provider Department Center 04/19/2024 ShubhamNicolasHERMAN LUI [facility] INF [facility] Family History Adopted: Yes Problem Relation Age of Onset Heart attack Father Family Status - Relation Status Age at Father [facility] 04-18-2024 36 RN called to request Amikacin peak level be faxed to [facility]. Confirmed fax number with Anabela. Confirmed patient will have Amikacin trough drawn at infusion today with Anabela. [facility] 04-15-2024 36 Call to [facility] and confirmed that pt is starting Amikacin today with peak being drawn then. They will schedule for Thursday for her trough prior to her second dose. [facility] Center Orders Onlyon 04-15-2024 Orders Only [id number] Ike Flannery 1970 F Date Provider Department Center 04/15/2024 HERMAN VITAL [facility] Family History Adopted: Yes Problem Relation Age of Onset Heart attack Father Family Status - Relation Status Age at Father Normal [facility] 36on 04-13-2024 36 Message left for [facility] asking about starting Amikacin. Awaiting their call back. Normal [facility] Auditory function testson Bilateral mild sensorineural hearing loss above 3K Hz [facility]on 04-12-2024 36 After multiple calls and multiple orders sent pt is scheduled for her hearing test in [facility] 04/13. Orders were called and faxed to [facility] for the first dose of Amikacin. Orders also called and faxed to Dania at [facility] for continuation of Amikacin 3 times weekly for 6 weeks. Will follow up with [facility] to see how soon they will have the med for the first dose. Normal [facility] ALL CBC WITH AUTO DIFFon BASOPHILS ABSOLUTE AUTO 0 [employer] [facility] Basophils/100 WBC (Bld) 0.6 % 0.2 - 2.0 % [employer] [facility] Eosinophils/100 WBC (Bld) 5.3 % 0.9 - 7.0 % [employer] [facility] Erythrocyte distribution width (RBC) [Ratio] 16.7 % High 11.0 - 15.0 % [facility] Hematocrit (Bld) [Volume fraction] 28.9 % Low 36.0 - 48.0 % [facility] Hemoglobin (Bld) [Mass/Vol] 9.6 g/dL Low 12.0 - 16.0 g/dL NOMS [facility] IMMATURE GRANULOCYTES ABS AUTO 0.01 [employer] [facility] Immature granulocytes/100 WBC (Bld) 0.2 % 0.0 - 0.5 % [facility] Interpretation and review of laboratory results Abnormal [facility] LYMPHOCYTES ABSOLUTE AUTO 0.7 Low [facility] Lymphocytes/100 WBC (Bld) 12.4 % Low 20.5 - 60.0 % [facility] MCH (RBC) [Entitic mass] 30.7 pg 26.7 - 34.0 pg [facility] MCHC (RBC) [Mass/Vol] 33.2 g/dL 29.9 - 35.2 g/dL [facility] MCV (RBC) [Entitic vol] 92.3 fL 81.0 - 99.0 fL [facility] MONOCYTES ABSOLUTE AUTO 0.5 [facility] Monocytes/100 WBC (Bld) 9.7 % 1.7 - 12.0 % [facility] NEUTROPHILS ABSOLUTE AUTO 3.8 [facility] Neutrophils/100 WBC (Bld) 71.8 % 43.0 - 75.0 % [facility] Platelet mean volume (Bld) [Entitic vol] 8.8 fL Low 9.5 - 13.5 fL [facility] Cirqle TBH EO # 0.3 [facility] Healthcar e TBH PLT 258 NOM [facility] RBC 3.13 Low NOM Health[facility] WBC 5.3 [facility] Healthcar e CLINISYNC [facility] Healthcar e [place] 04-07-2024 L -- ---- Specimen: [id number] Received: 04/07/24 Status: EUGENIO Lentz Num: [id number] Spec Type: Surgical Subm Dr: Evan Thompson Tissues: A Ovary W/ or W/O Fallopian Tube, Non-Neoplastic (BILATERAL FALLOPIAN TUBES AN Procedures: /, Gross/Micro L4 ---- Age/ Patient Sex Location Account Attending Physician ---- Ike Flannery Yumi 53/F LABELL [id number] Evan Thompson ---- SPEC NUM: [id number] RECD: 04/07/24 STATUS: EUGENIO TOR NUM: [id number] AMY: 04/07/24 [facility] DR: Evan Thompson ENTERED: 04/07/[address] [facility] [address]: Suzanne,Lab SPEC TYPE: Surgical DEPT: JORGE ALBERTO ROSALES ORDERED: HE/, Gross/Micro L4 ORDERED: HE, Gross/Micro L4 Pathological Diagnosis Bilateral ovaries and [...] [id number] Received: 04/07/24 Status: EUGENIO Lentz Num: [id number] Spec Type: Surgical Subm Dr: Evan Thompson Tissues: A Ovary W/ or W/O Fallopian Tube, Non-Neoplastic (BILATERAL FALLOPIAN TUBES AN Procedures: , Gross/Micro L4 ---- Patient: Ike Flannery [id number] (Continued) ---- Specimen: [id number] Received: 04/07/24 (Continued) Gross Description (Continued) Signed (signature on file) Elvis Mcgregor MD 04/08/24 1517 ---- Specimen: [id number] Received: 04/07/24 Status: EUGENIO Tor Num: [id number] Spec Type: Surgical Subm Dr: Evan Thompson Tissues: A Ovary W/ or W/O Fallopian Tube, Non-Neoplastic (BILATERAL FALLOPIAN TUBES AN Procedures: , Gross/Micro L4 ---- Patient: Ike Flannery [id number] (Continued) ---- Specimen: [id number] Received: 04/07/24 (Continued) Gross Description (Continued) #1 [...] performed supporting the above interpretation CPT Codes 13218 ---- ---- Specimen: [id number] Rec (more content not included)... Normal [facility] 04-04-2024 36 RN called to request most recent labs be faxed to [facility]. Fax number confirmed Normal [facility] 04-01-2024 36 Order Faxed to [phone] For Hearing test. Normal [facility] 03-31-2024 36 Called patient as follow up [...] the EKG done. 5.Patient is going to [facility] on 04/01/24 to receive pembrolizumab infusion. She is also going to get labs drawn at that time. Avi Tobar, SukiD, [facility] 36 Thank you. Keep me posted :) [facility] was told pt to be [facility] tomorrow. Second call to pt to see if she has scheduled the baseline hearing test so we can proceed with starting Amikacin. Awaiting her call back. [facility] Telephoneon 03-31-2024 Telephone [id number] Nimco Flannerykaren Eason 1970 F Date Provider Department Center 03/31/2024 HERMAN VITAL [facility] INF Anthony Heal Family History Adopted: Yes Problem Relation Age of Onset Heart attack Father Family Status - Relation Status Age at Father [facility] 36on 03-28-2024 36 Followed up with patient [...] is out of tedizolid. I called the [facility] and they are going to [...] I would follow up. Avi Tobar, PharmD, [facility] Normal [facility] Telephoneon 03-28-2024 Telephone [id number] Ike Flannery Yumi 1970 F Date Provider Department Center 03/28/2024 104AVI FRANCES [facility] INF Anthony Heal Family History Adopted: Yes Problem Relation Age of Onset Heart attack Father Family Status - Relation Status Age at Father Normal [facility] ANAEROBE CULTUREon Bacteria identified Anaer cx Nom (Unsp spec) CULTURE RESULTS NO GROWTH 5 DAYS Normal [facility] Comment on above: Performed By: #### 6 35-3 ####[facility] ([id number])2130 [facility], [address] [address] FUNGAL CULTUREon 03-21-2024 Fungus identified Cx Nom (Unsp spec) Normal [facility] Comment on above: Performed By: #### 5 80-1 ####[facility] ([id number])2130 [facility], [address], [place] [address] HGB AND HCTon 03-21-2024 Hematocrit (Bld) [Volume fraction] 21.4 % Low 35-47 [facility] Comment on above: Performed By: #### H H ####[facility] ([id number])5200 [place] [address] Hemoglobin (Bld) [Mass/Vol] 7.5 g/dL Low 11.7-15.5 [facility] Comment on above: Performed By: #### H H ####[facility] ([id number])5200 [place] [address] SEND OUT TESTon 03-21-2024 SENT TO [facility] Comment on above: Result Comment: [id number] SPECIMEN LJ SLANT FROM LEFT BREAST TISSUE Normal [facility] TEST NAME: [facility] AFB4 FULL IDENTIFICATION Normal [facility] TEST NAME: [facility] APPR O AFB SUSCEPTIBITIES AND GENE RESISTANCE Normal [facility] TEST RESULT See separate report. View in OnBase or in EPIC. Normal [facility] TISSUE CULTUREon 03-21-2024 Bacteria identified Aer cx Nom (Tiss) GRAM STAIN 0 to 1 WHITE BLOOD CELLS/LPF 0 SQUAMOUS EPITHELIAL CELLS/LPF NO ORGANISMS SEEN CULTURE RESULTS NO GROWTH 3 DAYS Normal [facility] Comment on above: Performed By: #### 6 27-0 ####[facility] ([id number])2130 [facility], [address] [place] [address] 36on 03-18-2024 36 Pt is to start on Amikacin 3 times weekly but has an upcoming trip to [place] planned. Spoke with pt and she returns 03/27. Spoke with Dania at [facility], Marybel ANDERSON and Dr Lui regarding how to proceed. Pt will need a baseline hearing test and first dose to be given at [facility] after pt returns 03/28 with a peak 30-60 mins after first dose then a trough 30-60 mins prior to second dose with weekly troughs there after. Peak goal of 32 and trough goal near 0. Continue weekly cbc, creat, lft. Spoke with pt and she is in agreement with the plan. Will work on coordinating care with [facility] for first dose. Pt will schedule her hearing test and will call if it can't be done prior to 03/28. Normal [facility] Orders Onlyon 03-18-2024 Orders Only [id number] Ike Flannery 1970 F Date Provider Department Center 03/18/2024 MARYBEL DUKE [facility] Family History Adopted: Yes Problem Relation Age of Onset Heart attack Father Family Status - Relation Status Age at Father Normal [facility] 36on 03-17-2024 36 I called [facility] Oncologist Dr. Aarti Hope and [...] clofazimine is somewhat limited as data from quality assurance technician is derived from in vitro information and [...] adjustments will be made as appropriate. Avi Tobar PharmD, [facility] Clinical Research Pharmacist Office Number: [phone] Normal [facility] Telephoneon 03-17-2024 Telephone [id number] Ike Flannery 1970 F Date Provider Department Center 03/17/2024 JOSSY ESQUEDA [facility] Family History Adopted: Yes Problem Relation Age of Onset Heart attack Father Family Status - Relation Status Age at Father Normal [facility] Follow-Upon 03-16-2024 Follow-Up [id number] Ike Flannery 1970 F Date Provider Department Center 03/16/2024 JOSSY ESQUEDA [facility] Anthony Heal Family History Adopted: Yes Problem Relation Age of Onset Heart attack Father Family Status - Relation Status Age at Father Level of Service:81769 [place] OFFICE/OUTPATIENT ESTABLISHED LOW MDM [address] [facility] Orders Onlyon 03-16-2024 Orders Only [id number] Ike Flannery 1970 F Date Provider Department Center 03/16/2024 1045-NAEEM TOBARHEL [facility] Anthony Heal Family History Adopted: Yes Problem Relation Age of Onset Heart attack Father Family Status - Relation Status Age at Father Normal [facility] Orders Only [id number] Ike Flannery 1970 F Date Provider Department Center 03/16/2024 161MARYBEL SABILLON [facility] Anthony Heal Family History Adopted: Yes Problem Relation Age of Onset Heart attack Father Family Status - Relation Status Age at Father [facility] 36on 03-15-2024 36 from [facility] called and would like to speak with you regarding patient. Stated it was urgent patient is scheduled to see them in office at 11 am Cell phone [phone] [facility] Telephoneon 03-15-2024 Telephone [id number] Ike Flannery 1970 F Date Provider Department Center 03/15/2024 EfraínRYANNORMANODALYS [facility] Anthony Heal Family History Adopted: Yes Problem Relation Age of Onset Heart attack Father Family Status - Relation Status Age at Father [facility] Orders Onlyon 03-11-2024 Orders Only [id number] Ike Flannery 1970 F Date Provider Department Center 03/11/2024 258NicolasJOSSY MOODY [facility] Anthony Heal Family History Adopted: Yes Problem Relation Age of Onset Heart attack Father Family Status - Relation Status Age at Father [facility] 36on 03-10-2024 36 [facility] is prescribing the imipenem and she will run out on 03/15/24. Spoke to pharmacist at 9:36am and they will extend until 03/16/24. [facility] 36on 03-09-2024 36 Thanks, I'm aware spoke to about sending additional susceptibilities [facility] 36 Pt called and stated her antibiotics is set to end on 03/15/24. Appt scheduled with you on 03/16/24. Pt wanted to know if she need to continue antibiotics ? [facility] Telephoneon 03-09-2024 Telephone [id number] Ike Flannery 1970 F Date Provider Department Center 03/09/2024 ODALYS ACEVES [facility] INF Anthony Heal Family History Adopted: Yes Problem Relation Age of Onset Heart attack Father Family Status - Relation Status Age at Father [facility] 36on 03-04-2024 36 [facility] saumya, Shen Dickson called that patient has a positive AFB. Culture was taken on 02/25 on the left breast wound tissue. Phone number in case there is follow-up is: [phone]. [facility] Telephoneon 03-04-2024 Telephone [id number] Ike Flannery 1970 F Date Provider Department Center 03/04/2024 07009-VALMDOMINGO [facility] [place] Count Family History Adopted: Yes Problem Relation Age of Onset Heart attack Father Family Status - Relation Status Age at Father Reason for Visit and Comments: Results [95] [facility] 36on 03-03-2024 36 Labs will be sent al l except CBC with will be drawn tomorrow 03/04. [facility] 36on 02-29-2024 36 Vm left for labs. Normal [facility] AFB CULTURE(CONCENTRATED)on 02-26-2024 Mycobacterium sp identified Org specific cx Nom (Unsp spec) AFB SMEAR FEW ACID FAST BACILLI SEEN ON CONCENTRATED SMEAR CULTURE RESULTS Mycobacterium Abscessus SSP. ABSCESSUS SEE SEPARATE REPORT FOR SUSCEPTIBILITY RESULT 07.09.24 [facility] Comment on above: Performed By: #### 5 43-9 ####[facility] ([id number])[address] [place] [address], [address], [place] [address] ANAEROBE CULTUREon Bacteria identified Anaer cx Nom (Unsp spec) CULTURE RESULTS NO GROWTH 5 DAYS [facility] Comment on above: Performed By: #### 6 35-3 ####[facility] ([id number])2130 [facility], [address] [place] [address] FUNGAL CULTUREon 02-26-2024 Fungus identified Cx Nom (Unsp spec) FUNGAL SMEAR NO FUNGAL ELEMENTS SEEN ON DIRECT SMEAR CULTURE RESULTS NO FUNGUS ISOLATED AFTER 4 WEEKS [facility] Comment on above: Performed By: #### 5 80-1 ####[facility] ([id number])2130 [facility], [address], [place] [address] SEND OUT TESTon 02-26-2024 SENT TO [facility] Comment on above: Result Comment: [id number] SPECIMEN LEFT BREAST WOUND LJ SLANT [facility] TEST NAME: [facility] APPR O SUSCEPTIBILTY AND GENE RESISTANCE TESING [facility] TEST RESULT See separate report. View in OnBase or in Avenso. [facility] TISSUE CULTUREon 02-26-2024 Bacteria identified Aer cx Nom (Tiss) GRAM STAIN >25 WHITE BLOOD CELLS/LPF 0 SQUAMOUS EPITHELIAL CELLS/LPF NO ORGANISMS SEEN CULTURE RESULTS MANY Mycobacterium Abscessus GROWTH OBSERVED AT 3RD DAY See AFB Culture for susceptibility testing. [facility] Comment on above: Performed By: #### 6 27-0 ####[facility] ([id number])0 [facility], [address] [place] [address] Orders Onlyon 02-17-2024 Orders Only [id number] Nimco Flannerykaren Eason 1970 F Date Provider Department Center 02/17/2024 AVI BO [facility] INF Anthony Heal Family History Adopted: Yes Problem Relation Age of Onset Heart attack Father Family Status - Relation Status Age at Father Normal [facility] Follow-Upon 02-16-2024 Follow-Up [id number] Alma DeliaIke A 1970 F Date Provider Department Center 02/16/2024 HERMAN VITAL [facility] INF Anthony Heal Family History Adopted: Yes Problem Relation Age of Onset Heart attack Father Family Status - Relation Status Age at Father Level of Service:74179 NC OFFICE/OUTPATIENT ESTABLISHED MOD MDM [address] [facility] 36on 02-15-2024 36 Put in a refill for tedizolid. Imipenem is IV, can we extend that by 4 weeks while we wait for the omadacycline PA to go through. [facility] 36 Pt called and stated she need refill on both medications you prescribed. [facility] 36 I called [facility], general number [phone], then connected to Medical Records (calling from physician's office). Spoke to Seema, who will fax over EKG results from 01/27/24. I instructed Seema to please send over as soon as possible. These EKG results are needed for baseline procedure, prior to taking clofazimine, and to be uploaded into [employer] for clinical review. Avi Tobar, SukiD, BCPS; Clinical Research Pharmacist [facility] Orders Onlyon 02-15-2024 Orders Only [id number] Ike Flannery Yumi 1970 F Date Provider Department Center 02/15/2024 HERMAN VITAL [facility] IN[facility] Family History Adopted: Yes Problem Relation Age of Onset Heart attack Father Family Status - Relation Status Age at Father [facility] Telephoneon 02-15-2024 Telephone [id number] Angela Flannerysd Eason 1970 F Date Provider Department Center 02/15/2024 HERMAN VITAL [facility] INF Anthony Heal Family History Adopted: Yes Problem Relation Age of Onset Heart attack Father Family Status - Relation Status Age at Father [facility] Telephone [id number] Ike Flannery Yumi 1970 F Date Provider Department Center 02/15/2024 ODALYS ACEVES [facility] INF Anthony Heal Family History Adopted: Yes Problem Relation Age of Onset Heart attack Father Family Status - Relation Status Age at Father [facility] 36on 02-12-2024 [address] you [facility] 36on 02-11-2024 36 This was also faxed to office [phone] [facility] 36 Letter/note entered into [employer] [facility] 36 Voicemail left on 02/10 at 11:25 AM and patient call received on 02/10 at 11:39 AM. This patient is part of an investigational new drug single patient expanded access program for clofazimine, IND #[id number]. As the Clinical Research Pharmacist, I called the patient to follow up on clofazimine monitoring. EKG was done at [facility] on 01/26, however, it appears that results were not faxed to ID clinic. Fax number [phone] provided. Patient to get CMP and other [...] insurance. I am available at office phone [phone] with questions[address] [facility] 36 Patient called and stated her microbiology quality control technician Dr. Morris did PA on OMADACYCLINE but it was denied. He requested the patient call us and see if you can type a letter to support why patient need medication. [facility] Documentationon 02-11-2024 Documentation [id number] AlconchenIke A 1970 F Date Provider Department Center 02/11/2024 HERMAN VITAL [facility] INF Anthony Heal Family History Adopted: Yes Problem Relation Age of Onset Heart attack Father Family Status - Relation Status Age at Father Normal [facility] Telephoneon 02-11-2024 Telephone [id number] Ike Flannery 1970 F Date Provider Department Center 02/11/2024 104Capo-AVI TOBAR [facility] INF Anthony Heal Family History Adopted: Yes Problem Relation Age of Onset Heart attack Father Family Status - Relation Status Age at Father Normal [facility] Telephone [id number] Ike Flannery 1970 F Date Provider Department Center 02/11/2024 870-ODALYS DAVIS [facility] Anthony Heal Family History Adopted: Yes Problem Relation Age of Onset Heart attack Father Family Status - Relation Status Age at Father Normal [facility] Telephoneon 02-08-2024 Telephone [id number] Ike Flannery 1970 Date Provider Department Center 02/08/2024 184-HERMAN LUI [facility] INF Anthony Heal Family History Adopted: Yes Problem Relation Age of Onset Heart attack Father Family Status - Relation Status Age at Father [facility] 36on 02-03-2024 36 Spoke to her Thursday, given that she is on tedizolid and imipenem the amoxicillin unlikely to be helpful. Not uncommon to have strep colonization in adults, if she is still having pharyngeal pain and discomfort it may be viral. [facility] 36on 02-02-2024 36 Patient states that amoxicillin is not working & strep is getting worse. She is asking is you would call her in a stronger antibiotic/please advise Patient is scheduled 02/15 at 4:00 pm. Calling [facility] for weekly labs. Patient was informed with the imipenem & tedizolid should take care of any strep that patient would have, it could also be viral but would not know without seeing patient./per Dr. Lui Left patient a voice mail X 1./lss [facility] Telephoneon 02-02-2024 Telephone [id number] Ike Flannery 1970 F Date Provider Department Center 02/02/2024 715-SHEN NICOLEA [facility] INF Anthony Heal Family History Adopted: Yes Problem Relation Age of Onset Heart attack Father Family Status - Relation Status Age at Father Normal [facility] 36on 02-01-2024 36 Patient called gale stewart that over the weekend she tested positive for strep and was prescribed Amoxicillin. [facility] 36on 01-26-2024 36 RN called to request most recent labs be faxed to [facility]. Fax number confirmed [facility] 36on 01-25-2024 36 I called they will call me back [facility] [address] Coffey called a nd wanted to talk regarding pt as soon as possible. Office - [phone] Cell- [phone] [facility] Office Visiton 01-15-2024 Follow-up visit [id number] Ike Flannery 1970 Date Provider Department Center 01/15/2024 HERMAN VITAL [facility] Adopted: Yes Problem Relation Age of Onset Heart attack Father Family Status - Relation Status Age at Father Level of Service:12492 NC OFFICE/OUTPATIENT ESTABLISHED MOD MDM [address] [facility] 36on 01-12-2024 36 Patients specialty pharmacy is not able to order the tedizolid (Sivextro) do the the shortage of the medication. I will call our [facility] to see if we can get it in. Rx was called in to the [facility] they are able to fill the prescription. [facility] 36on 01-08-2024 36 Patient called gale stewart that her IV antibiotics will be completed on 01/14 and that you were possibly going to do another IV antibiotic route. I saw you ordered Tedizolid and was going to fax that to her [facility]. Did you want any other IV antibiotics? Please Advise [facility] Orders Onlyon 01-04-2024 Orders Only [id number] Ike Flannery 1970 Date Provider Department Center 01/04/2024 HERMAN VITAL [facility] INF Anthony Heal Family History Adopted: Yes Problem Relation Age of Onset Heart attack Father Family Status - Relation Status Age at Father [facility] Orders Onlyon 01-01-2024 Orders Only [id number] Ike Flannery 1970 F Date Provider Department Center 01/01/2024 HERMAN VITAL [facility] INF Anthony Heal Family History Adopted: Yes Problem Relation Age of Onset Heart attack Father Family Status - Relation Status Age at Father Normal [facility] 37on 12-30-2023 37 Keep taking current antibiotics for now. 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 We will reach out to your Oncologist about when to restart radiation therapy. We don't anticipate deferring it at this time. Follow-up in about [address] [facility] Follow-Upon 12-30-2023 Follow-Up [id number] Ike Flannery 1970 F Date Provider Department Center 12/30/2023 SCOTT CHU [facility] INF Anthony Heal Family History Adopted: Yes Problem Relation Age of Onset Heart attack Father Family Status - Relation Status Age at Father Level of Service:[facility] OFFICE/OUTPATIENT ESTABLISHED MOD MDM 30 MIN () Reason for Visit and Comments: Invasive ductal carcinoma [Other] [facility] ED Clinical Summaryon 2023 ED Clinical Summary ED Clinical Summary [address] [address] ED Clinical Summary Person Information Name: IKE FLANNERY [facility] Age: 53 Years : 1970 Sex: Female Language: Egyptian PCP: RANDY CALLE DO Marital Status: Phone: [phone] Visit Id: Visit Reason: Eye problem; NO [...] 12/28/2023 21:34:41 12/28/2023 21:34:41 12/28/2023 21:34:41 ADDRESS: [address] [place] [id number] [facility] DOC NOTES: MEDICAL INFORMATION: Prescriptions Given: Medications to Continue with No Changes Other Medications chlorthalidone as directed. cyclobenzaprine as directed. lisinopril (lisinopril 20 mg Tab) 1 Tablets By Mouth every day. metoprolol as directed. spironolactone as directed. trazodone (traZODONE 50 mg Tab) By Mouth 2 times a day. PATIENT EDUCATION INFORMATION: Instructions: Vitreous Detachment Follow up: With: Address: When: Georgiana Justice [facility] [address], [address] [place] [address] Business (1) In 1 day 12/29/2023 Comments: Please call first in the morning for same-day appointment With: Address: When: RANDY CALLE [address] [place], [place] [id number] Business (1) In 3 days DIAGNOSIS: Posterior vitreous detachment Normal [facility] ED Note-Physicianon 12-28-19 ED Note-Physician ED Note-Physician Basic Information Time Seen: Rusty oHrton DOStarr 12/28/2023 20:35 Chief Complaint PT arrives to [...] and Complexity of Problems Differential Diagnosis: [] [facility] Data External documents reviewed: N/A [...] Georgiana Justice In 1 day 12/29/2023 EDT [facility] [address] [facility], [facility] [address] [place] [address]- Business (1) Additional Instructions: Please call first in the morning for same-day appointment RANDY CALLE In 3 days [address] [place] [address] Business (1) Additional Instructions: Patient [...] Diagnostic Results No qualifying data available. Normal [facility] Comment on above: Result Comment: Elec tronically Signed By: Rusty Horton DO\.br\Date and Time Signed: 12/28/23 21:30 EDT ED Patient Summaryon 024 ED Patient Summary ED Patient Summary [address] [address] Patient Discharge Instructions Person Information Name: IKE FLANNERY Age: 53 Years Arrival Date: 12/28/2023 20:23:14 Discharge Diagnosis: Posterior vitreous detachment Primary Care Physician: RANDY CALLE DO Provider Information Primary Provider: Rusty Horton DO Advanced Abap Developer:None The exam and treatment you received in the Emergency Department were for an urgent problem and are not intended as complete care. It is important that you follow up with a doctor, nurse practitioner, or physician???s transportation assistant for ongoing care. If your symptoms [...] Follow-up Instructions: With: Address: When: Georgiana Justice [facility] 3, [address] [facility], [facility] [address] [place] [address] Business (1) In 1 day 12/29/2023 Comments: Please call first in the morning for same-day appointment With: Address: When: RANDY CALLE [address] [place] [id number] Business (1) In 3 days In the event that this physician does not participate in your insurance network, please consult with your insurance company to find a nearby participating provider. Patient Education Materials: Vitreous Detachment A MESSAGE TO ALL PATIENTS REGARDING OPIOIDS PRESCRIPTION OPIOIDS: WHAT YOU NEED TO KNOW Prescription opioids can be used to help relieve ffuatqot-wt-ckmzho pain and are often prescribed following a [...] Administration (www.fda.gov (more content not included)... Normal [facility] Office Visiton 12-11-2023 Follow-up visit [id number] Ike Flannery 1970 F Date Provider Department Center 12/11/2023 [facility] INF Anthony Heal Family History Adopted: Yes Problem Relation Age of Onset Heart attack Father Family Status - Relation Status Age at Father Level of Service:76892 [place] OFFICE/OUTPATIENT NEW HIGH MDM 60 MINUTES Normal [facility] CBC AND AUTO DIFFon 12-09-19 24 ABSOLUTE BASOPHIL 0.0 X10E9/L Normal 0.0-0.2 [facility] Comment on above: Performed By: #### C MP, 2777-1, 72056-0, CBCA ####[facility] LAB ([id number])[address] [place] [address] ABSOLUTE NEUTROPHIL 3.6 X10E9/L Normal 1.5-6.6 [facility] Comment on above: Performed By: #### C ADARSH, 2776-03, , CBCA ####[facility] ([id number])5200 [facility] [place] [address] Basophils/100 WBC (Bld) 0.2 % Normal [facility] Comment on above: Performed By: #### C ADARSH, 2776-03, , CBCA ####[facility] ([id number])5[address] [place] [address] Eosinophils (Bld) [#/Vol] 0.0 10*3/uL Normal 0.0-0.4 [facility] Comment on above: Performed By: #### C ADARSH, 2776-03, , CBCA ####[facility] ([id number])5[address] [place] [address] Eosinophils/100 WBC (Bld) 0.0 % Normal [facility] Comment on above: Performed By: #### C ADARSH, 2776-03, , CBCA ####[facility] ([id number])5[address] [place] [address] Erythrocyte distribution width (RBC) [Ratio] 14.6 % Normal 11.5-15.0 [facility] Comment on above: Performed By: #### C ADARSH, 2776-03, , CBCA ####[facility] ([id number])5[address] [place] [address] Hematocrit (Bld) [Volume fraction] 22.0 % Low 35-47 [facility] Comment on above: Performed By: #### C ADARSH, 2776-03, , CBCA ####[facility] ([id number])5[address] [place] [address] Hemoglobin (Bld) [Mass/Vol] 7.4 g/dL Low 11.7-15.5 [facility] Comment on above: Performed By: #### C ADARSH, 2776-03, , CBCA ####[facility] ([id number])[address] [place] [address] Lymphocytes (Bld) [#/Vol] 0.5 10*3/uL Low 1.0-3.5 [facility] Comment on above: Performed By: #### C ADARSH, 2776-03, , CBCA ####[facility] ([id number])[address] [place] [address] Lymphocytes/100 WBC (Bld) 12.0 % Normal [facility] Comment on above: Performed By: #### C ADARSH, 2776-03, , CBCA ####[facility] ([id number])[address] [place] [address] MCH (RBC) [Entitic mass] 29.9 pg Normal 27-34 [facility] Comment on above: Performed By: #### C ADARSH, 2776-03, , CBCA ####[facility] ([id number])[address] [place] [address] MCHC (RBC) [Mass/Vol] 33.8 g/dL Normal 32-36 [facility] Comment on above: Performed By: #### Jamal ALTAMIRANO, 2776-03, , CBCA ####[facility] ([id number])[address] [place] [address] MCV (RBC) [Entitic vol] 89 fL Normal 80-100 [facility] Comment on above: Performed By: #### Jamal ALTAMIRANO, 2776-03, , CBCA ####[facility] ([id number])[address] [place] [address] Monocytes (Bld) [#/Vol] 0.2 10*3/uL Normal 0-0.9 [facility] Comment on above: Performed By: #### C ADARSH, 2776-03, , CBCA ####[facility] ([id number])[address] [place] [address] Monocytes/100 WBC (Bld) 4.6 % Normal [facility] Comment on above: Performed By: #### C ADARSH, 2776-03, , CBCA ####[facility] ([id number])5[address] [facility] [place] [address] Neutrophils/100 WBC (Bld) 83.2 % Normal [facility] Comment on above: Performed By: #### C ADARSH, 2776-03, , CBCA ####[facility] MAIN [facility] ([id number])5200 [place] [address] Platelet mean volume (Bld) [Entitic vol] 7.6 fL Normal 7-12 [facility] Comment on above: Performed By: #### C ADARSH, 2776-03, , CBCA ####[facility] ([id number])5200 [place] [address] Platelets (Bld) [#/Vol] 153 10*3/uL Normal 150-450 [facility] Comment on above: Performed By: #### C ADARSH, 2776-03, , CBCA ####[facility] ([id number])5200 [place] [address] RBC COUNT 2.48 X10E12/L Low 3.80-5.20 [facility] Comment on above: Performed By: #### C ADARSH, 2776-03, , CBCA ####[facility] ([id number])5200 [place] [address] WBC (Bld) [#/Vol] 4.3 10*3/uL Normal 4.0-11.0 [facility] Comment on above: Performed By: #### C ADARSH, 2776-03, , CBCA ####[facility] ([id number])5200 [facility] [place] [address] CBC auto differentialon 10-0 -2023 Basophils (Bld) [#/Vol] 0.0 10*3/uL [facility] Basophils/100 WBC (Bld) 0.2 % [facility] Eosinophils (Bld) [#/Vol] 0.0 10*3/uL [facility] Eosinophils/100 WBC (Bld) 0.0 % [facility] Erythrocyte distribution width (RBC) [Ratio] 14.6 % 11.5 - 15.0 % [facility] Hematocrit (Bld) [Volume fraction] 22.0 % Low 35 - 47 % [facility] Hemoglobin (Bld) [Mass/Vol] 7.4 g/dL Low 11.7 - 15.5 g/dL [facility] Interpretation and review of laboratory results Abnormal [facility] Lymphocytes (Bld) [#/Vol] 0.5 10*3/uL Low [facility] Lymphocytes/100 WBC (Bld) 12.0 % [facility] MCH (RBC) [Entitic mass] 29.9 pg 27 - 34 pg [facility] MCHC (RBC) [Mass/Vol] 33.8 g/dL 32 - 36 g/dL P [facility] MCV (RBC) [Entitic vol] 89 fL 80 - [address] [facility] Monocytes (Bld) [#/Vol] 0.2 10*3/uL [facility] Monocytes/100 WBC (Bld) 4.6 % [facility] Neutrophils (Bld) [#/Vol] 3.6 10*3/uL [facility] Neutrophils/100 WBC (Bld) 83.2 % [facility] Platelet mean volume (Bld) [Entitic vol] 7.6 fL 7 - 12 fL [facility] Platelets (Bld) [#/Vol] 153 10*3/uL [facility] RBC (Bld) [#/Vol] 2.48 10*6/uL Low [facility] WBC corrected for nucl RBC Auto (Bld) [#/Vol] 4.3 [facility] COMPREHENSIVE METABOLIC PANE [place] 12-09-2023 Albumin [Mass/Vol] 3.2 g/dL Normal 3.2-5.3 [facility] Comment on above: Performed By: #### C MP, 2777-1, , CBCA ####[facility] ([id number])[address] [place] [address] ALP [Catalytic activity/Vol] 66 U/L Normal 39-130 [facility] Comment on above: Performed By: #### C ADARSH, 2776-03, , CBCA ####[facility] ([id number])[address] [place] [address] ALT [Catalytic activity/Vol] 30 U/L Normal 0-31 [facility] Comment on above: Performed By: #### C ADARSH, 2776-03, , CBCA ####[facility] ([id number])[address] [place] [address] Anion gap [Moles/Vol] 7 mmol/L Normal 5-15 [facility] Comment on above: Performed By: #### C ADARSH, 2776-03, , CBCA ####[facility] ([id number])[address] [place] [address] AST [Catalytic activity/Vol] 39 U/L Normal 0-41 [facility] Comment on above: Performed By: #### C ADARSH, 2776-03, , CBCA ####[facility] ([id number])[address] [place] [address] Bilirubin [Mass/Vol] 0.6 mg/dL Normal 0.3-1.2 [facility] Comment on above: Performed By: #### C ADARSH, 2776-03, , CBCA ####[facility] ([id number])[address] [place] [address] Calcium [Mass/Vol] 8.7 mg/dL Normal 8.5-10.5 [facility] Comment on above: Performed By: #### C ADARSH, 2776-03, , CBCA ####[facility] ([id number])[address] [place] [address] Chloride [Moles/Vol] 106 mmol/L Normal 98-109 [facility] Comment on above: Performed By: #### C ADARSH, 2776-03, , CBCA ####[facility] ([id number])5[address] [facility] [place] [address] CO2 [Moles/Vol] 26 mmol/L Normal 22-32 [facility] Comment on above: Performed By: #### C ADARSH, 2776-03, , CBCA ####[facility] ([id number])5200 [facility] [place] [address] Creatinine [Mass/Vol] 1.50 mg/dL High 0.40-1.00 [facility] Comment on above: Result Comment: METH OD TRACEABLE TO IDMS STANDARD Performed By: #### C ADARSH, 2776-03, , CBCA ####[facility] ([id number])5200 [facility] [place] [address] GFR/1.73 sq M.predicted among non-blacks MDRD (S/P/Bld) [Vol rate/Area] 41 mL/min/{1.73_m2} Low >59 [facility] Comment on above: Result Comment: Repo rted eGFR is based on theCKD-EPI 2020 equation that doesnot use a race coefficient. Performed By: #### C ADARSH, 2776-03, , CBCA ####[facility] ([id number])5200 [facility] [place] [address] Glucose [Mass/Vol] 160 mg/dL High 65-99 [facility] Comment on above: Performed By: #### C ADARSH, 2776-03, , CBCA ####[facility] ([id number])5200 [facility] [place] [address] Potassium [Moles/Vol] 3.8 mmol/L Normal 3.5-5.0 [facility] Comment on above: Performed By: #### C ADARSH, 2776-03, , CBCA ####[facility] ([id number])5200 [facility] [place] [address] Protein [Mass/Vol] 5.9 g/dL Low 6.0-8.0 [facility] Comment on above: Performed By: #### C MP, 2776-, , CBCA ####[facility] ([id number])5[address] [facility] [place] [address] Sodium [Moles/Vol] 139 mmol/L Normal 134-146 [facility] Comment on above: Performed By: #### C ADARSH, 2776-03, , CBCA ####[facility] ([id number])5[address] [facility] [place] [address] Urea nitrogen [Mass/Vol] 23 mg/dL Normal 5-23 [facility] Comment on above: Performed By: #### C ADARSH, 2776-03, , CBCA ####[facility] ([id number])5200 [facility] [place] [address] Comprehensive metabolic pane rome 12-09-2023 Albumin [Mass/Vol] 3.2 g/dL 3.2 - 5.3 g/dL [facility] ALP [Catalytic activity/Vol] 66 U/L 39 - 130 U/L [facility] ALT No additional P-5'-P [Catalytic activity/Vol] 30 U/L 0 - 31 U/L [facility] Anion gap [Moles/Vol] 7 mmol/L 5 - 15 mmol/L [facility] AST [Catalytic activity/Vol] 39 U/L 0 - 41 U/L [facility] Bilirubin [Mass/Vol] 0.6 mg/dL 0.3 - 1 .2 mg/dL [facility] Calcium [Mass/Vol] 8.7 mg/dL 8.5 - 10. 5 mg/dL [facility] Chloride [Moles/Vol] 106 mmol/L 98 - 10 9 mmol/L [facility] CO2 [Moles/Vol] 26 mmol/L 22 - 32 mmol/L [facility] Creatinine [Mass/Vol] 1.50 mg/dL High 0.40 - 1.00 mg/dL [facility] Comment on above: METHOD TRACEABLE TO [facility] STANDARD eGFR (CKD-EPI)non-race dependent 41 Low - PINF [facility] Comment on above: Reported eGFR is based on the CKD-EPI 2020 equation that does not use a race coefficient. Glucose [Mass/Vol] 160 mg/dL High 65 - 99 mg/dL [facility] Interpretation and review of laboratory results Abnormal [facility] Potassium [Moles/Vol] 3.8 mmol/L 3.5 - 5.0 mmol/L [facility] Protein [Mass/Vol] 5.9 g/dL Low 6.0 - 8.0 g/dL [facility] Sodium [Moles/Vol] 139 mmol/L 134 - 146 mmol/L [facility] Urea nitrogen [Mass/Vol] 23 mg/dL 5 - 23 mg/dL [facility] MAGNESIUMon 12-09-2023 Magnesium [Mass/Vol] 1.8 mg/dL Normal 1.8-2.6 [facility] Comment on above: Performed By: #### C , 2777-1, 31372-8, CBCA ####[facility] ([id number])5200 [place] [address] Magnesiumon 12-09-2023 Magnesium [Mass/Vol] 1.8 mg/dL 1.8 - 2 .6 mg/dL [facility] No Panel Informationon 12-08 [facility] PHOSPHORUSon 12-09-2023 Phosphate [Mass/Vol] 3.7 mg/dL Normal 2.4-4.9 [facility] Comment on above: Performed By: #### C , 2777-1, 80230-9, CBCA ####[facility] ([id number])5200 [place] [address] Phosphoruson 12-09-2023 Phosphate [Mass/Vol] 3.7 mg/dL 2.4 - 4 .9 mg/dL [facility] Bacteria identified Aer cx N om (Bld)on 12-08-2023 Service comment (Unsp spec) [Interp] SUBOPTIMAL VOLUME OF BLOOD COLLECTED, RESULTS MAY BE AFFECTED. [facility] Service comment (Unsp spec) [Interp] NO GROWTH 5 DAYS [facility] Service comment (Unsp spec) [Interp] SUBOPTIMAL VOLUME OF BLOOD COLLECTED, RESULTS MAY BE AFFECTED. [facility] Service comment (Unsp spec) [Interp] NO GROWTH 5 DAYS [facility] CBC AND AUTO DIFFon 12-08-19 24 ABSOLUTE BASOPHIL 0.0 X10E9/L Normal 0.0-0.2 [facility] Comment on above: Performed By: #### 2 777-1, CMP, CBCA, ####[facility] ([id number])5200 [place] [address] Basophils/100 WBC (Bld) 1.0 % Normal [facility] Comment on above: Performed By: #### 2 777-1, CMP, CBCA, ####[facility] ([id number])5200 [place] [address] Eosinophils (Bld) [#/Vol] 0.2 10*3/uL Normal 0.0-0.4 [facility] Comment on above: Performed By: #### 2 777-1, CMP, CBCA, ####[facility] ([id number])5200 [place] [address] Eosinophils/100 WBC (Bld) 7.0 % Normal [facility] Comment on above: Performed By: #### 2 777-1, CMP, CBCA, ####[facility] ([id number])5200 [place] [address] Erythrocyte distribution width (RBC) [Ratio] 14.4 % Normal 11.5-15.0 [facility] Comment on above: Performed By: #### 2 777-1, CMP, CBCA, ####[facility] ([id number])5200 [place] [address] Hematocrit (Bld) [Volume fraction] 23.1 % Low 35-47 [facility] Comment on above: Performed By: #### 2 777-1, CMP, CBCA, ####[facility] ([id number])[address] [place] [address] Hemoglobin (Bld) [Mass/Vol] 8.1 g/dL Low 11.7-15.5 [facility] Comment on above: Performed By: #### 2 777-1, CMP, CBCA, ####[facility] ([id number])5[address] [facility] [address] Lymphocytes (Bld) [#/Vol] 0.4 10*3/uL Low 1.0-3.5 [facility] Comment on above: Performed By: #### 2 777-1, CMP, CBCA, ####[facility] ([id number])5200 [facility] [address] Lymphocytes/100 WBC (Bld) 14.0 % Normal [facility] Comment on above: Performed By: #### 2 777-1, CMP, CBCA, ####[facility] ([id number])5200 [facility] [place] [address] MCH (RBC) [Entitic mass] 31.1 pg Normal 27-34 [facility] Comment on above: Performed By: #### 2 777-1, CMP, CBCA, ####[facility] ([id number])5200 [facility] [place] [address] MCHC (RBC) [Mass/Vol] 35.1 g/dL Normal 32-36 [facility] Comment on above: Performed By: #### 2 777-1, CMP, CBCA, ####[facility] ([id number])5200 [facility] [place] [address] MCV (RBC) [Entitic vol] 89 fL Normal 80-100 [facility] Comment on above: Performed By: #### 2 777-1, CMP, CBCA, ####[facility] ([id number])5200 [facility] [place] [address] Monocytes (Bld) [#/Vol] 0.3 10*3/uL Normal 0-0.9 [facility] Comment on above: Performed By: #### 2 777-1, CMP, CBCA, ####[facility] ([id number])5200 [facility] [place] [address] Monocytes/100 WBC (Bld) 9.0 % Normal [facility] Comment on above: Performed By: #### 2 777-1, CMP, CBCA, ####[facility] ([id number])5200 [facility] [address] Neutrophils (Bld) [#/Vol] 2.0 10*3/uL Normal 1.5-6.6 [facility] Comment on above: Performed By: #### 2 777-1, CMP, CBCA, ####[facility] ([id number])5200 [facility] [place] [address] Platelet mean volume (Bld) [Entitic vol] 7.5 fL Normal 7-12 [facility] Comment on above: Performed By: #### 2 777-1, CMP, CBCA, ####[facility] ([id number])5200 [facility] [place] [address] Platelets (Bld) [#/Vol] 147 10*3/uL Low 150-450 [facility] Comment on above: Performed By: #### 2 777-1, CMP, CBCA, ####[facility] ([id number])5200 [facility]OU[facility] [place] [address] RBC COUNT 2.61 X10E12/L Low 3.80-5.20 [facility] Comment on above: Performed By: #### 2 777-1, CMP, CBCA, ####[facility] ([id number])5200 [facility] [place] [address] RBC morphology finding Nom (Bld) REVIEWED Normal [facility] Comment on above: Performed By: #### 2 777-1, CMP, CBCA, ####[facility] ([id number])5200 [facility] [address] SEG NEUTROPHIL 69.0 % Normal [facility] Comment on above: Performed By: #### 2 777-1, CMP, CBCA, ####[facility] ([id number])5[address] [place] [address] WBC (Bld) [#/Vol] 2.9 10*3/uL Low 4.0-11.0 [facility] Comment on above: Performed By: #### 2 777-1, CMP, CBCA, ####[facility] ([id number])5200 [place] [address] CBC auto differentialon 10-0 Basophils (Bld) [#/Vol] 0.0 10*3/uL [facility] Basophils/100 WBC (Bld) 1.0 % [facility] Eosinophils (Bld) [#/Vol] 0.2 10*3/uL [facility] Eosinophils/100 WBC (Bld) 7.0 % [facility] Erythrocyte distribution width (RBC) [Ratio] 14.4 % 11.5 - 15.0 % [facility] Hematocrit (Bld) [Volume fraction] 23.1 % Low 35 - 47 % [facility] Hemoglobin (Bld) [Mass/Vol] 8.1 g/dL Low 11.7 - 15.5 g/dL [facility] Interpretation and review of laboratory results Abnormal [facility] Lymphocytes (Bld) [#/Vol] 0.4 10*3/uL Low [facility] Lymphocytes/100 WBC (Bld) 14.0 % [facility] MCH (RBC) [Entitic mass] 31.1 pg 27 - 34 pg [facility] MCHC (RBC) [Mass/Vol] 35.1 g/dL 32 - 36 g/dL [facility] MCV (RBC) [Entitic vol] 89 fL 80 - 100 fL [facility] Monocytes (Bld) [#/Vol] 0.3 10*3/uL [facility] Monocytes/100 WBC (Bld) 9.0 % [facility] Neutrophils (Bld) [#/Vol] 2.0 10*3/uL [facility] Platelet mean volume (Bld) [Entitic vol] 7.5 fL 7 - 12 fL [facility] Platelets (Bld) [#/Vol] 147 10*3/uL Low [facility] Polymorphonuclear cells/100 WBC (Bld) REVIEWED [facility] RBC (Bld) [#/Vol] 2.61 10*6/uL Low [facility] Segmented neutrophils/100 WBC (Bld) 69.0 % [facility] WBC corrected for nucl RBC Auto (Bld) [#/Vol] 2.9 Low [facility] COMPREHENSIVE METABOLIC PANE [place] 12-08-2023 Albumin [Mass/Vol] 3.2 g/dL Normal 3.2-5.3 [facility] Comment on above: Performed By: #### 2 777-1, CMP, CBCA, 43062-1 ####[facility] ([id number])5200 [place] [address] ALP [Catalytic activity/Vol] 64 U/L Normal 39-130 [facility] Comment on above: Performed By: #### 2 777-1, CMP, CBCA, 84326-7 ####[facility] ([id number])5200 [facility] [place] [address] ALT [Catalytic activity/Vol] 18 U/L Normal 0-31 [facility] Comment on above: Performed By: #### 2 777-1, CMP, CBCA, 43431-2 ####[facility] MAIN LAB ([id number])[address] [facility] [address] Anion gap [Moles/Vol] 8 mmol/L Normal 5-15 [facility] Comment on above: Performed By: #### 2 777-1, CMP, CBCA, ####[facility] MAIN LAB ([id number])[address] [place] [address] AST [Catalytic activity/Vol] 28 U/L Normal 0-41 [facility] Comment on above: Performed By: #### 2 777-1, CMP, CBCA, ####[facility] MAIN LAB ([id number])[address] [place] [address] Bilirubin [Mass/Vol] 0.6 mg/dL Normal 0.3-1.2 [facility] Comment on above: Performed By: #### 2 777-1, CMP, CBCA, ####[facility] MAIN LAB ([id number])[address] [place] [address] Calcium [Mass/Vol] 8.7 mg/dL Normal 8.5-10.5 [facility] Comment on above: Performed By: #### 2 777-1, CMP, CBCA, ####[facility] MAIN LAB ([id number])[address] [place] [address] Chloride [Moles/Vol] 101 mmol/L Normal 98-109 [facility] Comment on above: Performed By: #### 2 777-1, CMP, CBCA, ####[facility] MAIN LAB ([id number])5[address] [facility] [place] [address] CO2 [Moles/Vol] 27 mmol/L Normal 22-32 [facility] Comment on above: Performed By: #### 2 777-1, CMP, CBCA, ####[facility] MAIN LAB ([id number])[address] [place] [address] Creatinine [Mass/Vol] 1.89 mg/dL High 0.40-1.00 [facility] Comment on above: Result Comment: METH OD TRACEABLE TO IDMS STANDARD Performed By: #### 2 777-1, CMP, CBCA, ####[facility] MAIN LAB ([id number])[address] [place] [address] GFR/1.73 sq M.predicted among non-blacks MDRD (S/P/Bld) [Vol rate/Area] 31 mL/min/{1.73_m2} Low >59 [facility] Comment on above: Result Comment: Repo rted eGFR is based on theCKD-EPI 2020 equation that doesnot use a race coefficient. Performed By: #### 2 777-1, CMP, CBCA, ####[facility] MAIN LAB ([id number])[address] [place] [address] Glucose [Mass/Vol] 99 mg/dL Normal 65-99 [facility] Comment on above: Performed By: #### 2 777-1, CMP, CBCA, ####[facility] MAIN LAB ([id number])[address] [place] [address] Potassium [Moles/Vol] 3.2 mmol/L Low 3.5-5.0 [facility] Comment on above: Performed By: #### 2 777-1, CMP, CBCA, ####[facility] MAIN LAB ([id number])[address] [place] [address] Protein [Mass/Vol] 5.6 g/dL Low 6.0-8.0 [facility] Comment on above: Performed By: #### 2 777-1, CMP, CBCA, ####[facility] MAIN LAB ([id number])[address] [facility] [place] [address] Sodium [Moles/Vol] 136 mmol/L Normal 134-146 [facility] Comment on above: Performed By: #### 2 777-1, CMP, CBCA, ####[facility] MAIN LAB ([id number])[address] [place] [address] Urea nitrogen [Mass/Vol] 24 mg/dL High 5-23 [facility] Comment on above: Performed By: #### 2 777-1, CMP, CBCA, 26478-4 ####[facility] MAIN LAB ([id number])[address] [place] [address] Comprehensive metabolic pane rome 12-08-2023 Albumin [Mass/Vol] 3.2 g/dL 3.2 - 5.3 g/dL [facility] ALP [Catalytic activity/Vol] 64 U/L 39 - 130 U/L [facility] ALT No additional P-5'-P [Catalytic activity/Vol] 18 U/L 0 - 31 U/L [facility] Anion gap [Moles/Vol] 8 mmol/L 5 - 15 mmol/L [facility] AST [Catalytic activity/Vol] 28 U/L 0 - 41 U/L [facility] Bilirubin [Mass/Vol] 0.6 mg/dL 0.3 - 1 .2 mg/dL [facility] Calcium [Mass/Vol] 8.7 mg/dL 8.5 - 10. 5 mg/dL [facility] Chloride [Moles/Vol] 101 mmol/L 98 - 10 9 mmol/L [facility] CO2 [Moles/Vol] 27 mmol/L 22 - 32 mmol/L [facility] Creatinine [Mass/Vol] 1.89 mg/dL High 0.40 - 1.00 mg/dL [facility] Comment on above: METHOD TRACEABLE TO [facility] STANDARD eGFR (CKD-EPI)non-race dependent 31 Low - PINF [facility] Comment on above: Reported eGFR is based on the CKD-EPI 2020 equation that does not use a race coefficient. Glucose [Mass/Vol] 99 mg/dL 65 - 99 mg/dL [facility] Potassium [Moles/Vol] 3.2 mmol/L Low 3.5 - 5.0 mmol/L [facility] Protein [Mass/Vol] 5.6 g/dL Low 6.0 - 8.0 g/dL [facility] Sodium [Moles/Vol] 136 mmol/L 134 - 146 mmol/L [facility] Urea nitrogen [Mass/Vol] 24 mg/dL High 5 - 23 mg/dL [facility] MAGNESIUMon 12-08-2023 Magnesium [Mass/Vol] 2.5 mg/dL Normal 1.8-2.6 [facility] Comment on above: Performed By: #### 2 823-3, ####[facility] MAIN LAB ([id number])[address] [place] [address] Magnesium [Mass/Vol] 1.5 mg/dL Low 1.8-2.6 [facility] Comment on above: Performed By: #### 2 777-1, CMP, CBCA, ####[facility] MAIN LAB ([id number])[address] [place] [address] Magnesiumon 12-08-2023 Magnesium [Mass/Vol] 2.5 mg/dL 1.8 - 2 .6 mg/dL [facility] Magnesium [Mass/Vol] 1.5 mg/dL Low 1.8 - 2 .6 mg/dL [facility] No Panel Informationon 12-07 [facility] Interpretation and review of laboratory results Abnormal [facility] PHOSPHORUSon 12-08-2023 Phosphate [Mass/Vol] 4.1 mg/dL Normal 2.4-4.9 [facility] Comment on above: Performed By: #### 2 777-1, CMP, CBCA, ####[facility] MAIN LAB ([id number])[address] [place] [address] POTASSIUMon 12-08-2023 Potassium [Moles/Vol] 3.8 mmol/L Normal 3.5-5.0 [facility] Comment on above: Performed By: #### 2 823-3 ####[facility] MAIN LAB ([id number])[address] [place] [address] Potassium [Moles/Vol] 3.3 mmol/L Low 3.5-5.0 [facility] Comment on above: Performed By: #### 2 823-3, ####[facility] MAIN LAB ([id number])[address] [place] [address] Phosphoruson 12-08-2023 Phosphate [Mass/Vol] 4.1 mg/dL 2.4 - 4 .9 mg/dL [facility] Potassiumon 12-08-2023 Potassium [Moles/Vol] 3.8 mmol/L 3.5 - 5.0 mmol/L [facility] Potassium [Moles/Vol] 3.3 mmol/L Low 3.5 - 5.0 mmol/L [facility] Potassium [Moles/Vol]on [facility] Interpretation and review of laboratory results Abnormal [facility] CBC AND AUTO DIFFon 12-07-19 ABSOLUTE BASOPHIL 0.0 X10E9/L Normal 0.0-0.2 [facility] Comment on above: Performed By: #### C MP, CBCA, 2776-03, ####[facility] MAIN LAB ([id number])[address] [facility] [address] ABSOLUTE NEUTROPHIL 1.6 X10E9/L Normal 1.5-6.6 [facility] Comment on above: Performed By: #### C MP, CBCA, 2776-03, ####[facility] MAIN LAB ([id number])5200 [place] [address] Basophils/100 WBC (Bld) 0.7 % Normal [facility] Comment on above: Performed By: #### C MP, CBCA, 2776-03, ####[facility] MAIN LAB ([id number])5[address] [place] [address] Eosinophils (Bld) [#/Vol] 0.2 10*3/uL Normal 0.0-0.4 [facility] Comment on above: Performed By: #### C MP, CBCA, 2776-03, ####[facility] MAIN LAB ([id number])[address] [facility] [place] [address] Eosinophils/100 WBC (Bld) 7.0 % Normal [facility] Comment on above: Performed By: #### C MP, CBCA, 2776-03, ####[facility] MAIN LAB ([id number])[address] [place] [address] Erythrocyte distribution width (RBC) [Ratio] 14.2 % Normal 11.5-15.0 [facility] Comment on above: Performed By: #### C MP, CBCA, 2776-03, ####[facility] LAB ([id number])[address] [place] [address] Hematocrit (Bld) [Volume fraction] 22.3 % Low 35-47 [facility] Comment on above: Performed By: #### C MP, CBCA, 2776-03, ####[facility] LAB ([id number])[address] [facility] [place] [address] Hemoglobin (Bld) [Mass/Vol] 7.8 g/dL Low 11.7-15.5 [facility] Comment on above: Performed By: #### C MP, CBCA, 2776-03, ####[facility] LAB ([id number])5[address] [facility] [place] [place] [address] Lymphocytes (Bld) [#/Vol] 0.5 10*3/uL Low 1.0-3.5 [facility] Comment on above: Performed By: #### C MP, CBCA, 2776-03, ####[facility] LAB ([id number])5[address] [facility] [place] [address] Lymphocytes/100 WBC (Bld) 19.6 % Normal [facility] Comment on above: Performed By: #### C MP, CBCA, 2776-03, ####[facility] LAB ([id number])[address] [facility] [place] [address] MCH (RBC) [Entitic mass] 30.9 pg Normal 27-34 [facility] Comment on above: Performed By: #### C MP, CBCA, 2776-03, ####[facility] LAB ([id number])5[address] [facility] [place] [address] MCHC (RBC) [Mass/Vol] 34.9 g/dL Normal 32-36 [facility] Comment on above: Performed By: #### C ADARSH, CBCA, 2776-03, ####[facility] MAIN LAB ([id number])[address] [place] [address] MCV (RBC) [Entitic vol] 88 fL Normal 80-100 [facility] Comment on above: Performed By: #### C ADARSH, CBCA, 2776-03, ####[facility] MAIN LAB ([id number])5[address] [facility] [place] [address] Monocytes (Bld) [#/Vol] 0.3 10*3/uL Normal 0-0.9 [facility] Comment on above: Performed By: #### C ADARSH, CBCA, 2776-03, ####[facility] LAB ([id number])5[address] [place] [address] Monocytes/100 WBC (Bld) 12.5 % Normal [facility] Comment on above: Performed By: #### C ADARSH, CBCA, 2776-03, ####[facility] LAB ([id number])[address] [facility] [place] [address] Neutrophils/100 WBC (Bld) 60.2 % Normal [facility] Comment on above: Performed By: #### C ADARSH, CBCA, 2776-03, ####[facility] LAB ([id number])5[address] [facility] [place] [address] Platelet mean volume (Bld) [Entitic vol] 6.9 fL Low 7-12 [facility] Comment on above: Performed By: #### C MP, CBCA, 2776-03, ####[facility] MAIN LAB ([id number])[address] [facility] [place] [address] Platelets (Bld) [#/Vol] 150 10*3/uL Normal 150-450 [facility] Comment on above: Performed By: #### C MP, CBCA, 2776-03, ####[facility] MAIN LAB ([id number])5[address] [place] [address] RBC COUNT 2.52 X10E12/L Low 3.80-5.20 [facility] Comment on above: Performed By: #### C MP, CBCA, 2776-03, ####[facility] MAIN LAB ([id number])5200 [place] [address] WBC (Bld) [#/Vol] 2.7 10*3/uL Low 4.0-11.0 [facility] Comment on above: Performed By: #### C MP, CBCA, 2776-03, ####[facility] LAB ([id number])5200 [place] [address] CBC auto differentialon 10-0 Basophils (Bld) [#/Vol] 0.0 10*3/uL [facility] Basophils/100 WBC (Bld) 0.7 % [facility] Eosinophils (Bld) [#/Vol] 0.2 10*3/uL [facility] Eosinophils/100 WBC (Bld) 7.0 % [facility] Erythrocyte distribution width (RBC) [Ratio] 14.2 % 11.5 - 15.0 % [facility] Hematocrit (Bld) [Volume fraction] 22.3 % Low 35 - 47 % [facility] Hemoglobin (Bld) [Mass/Vol] 7.8 g/dL Low 11.7 - 15.5 g/dL [facility] Interpretation and review of laboratory results Abnormal [facility] Lymphocytes (Bld) [#/Vol] 0.5 10*3/uL Low [facility] Lymphocytes/100 WBC (Bld) 19.6 % [facility] MCH (RBC) [Entitic mass] 30.9 pg 27 - 34 pg [facility] MCHC (RBC) [Mass/Vol] 34.9 g/dL 32 - 36 g/dL [facility] MCV (RBC) [Entitic vol] 88 fL 80 [...] System RBC (Bld) [#/Vol] 2.52 10*6/uL Low [facility] WBC corrected for nucl RBC Auto (Bld) [#/Vol] 2.7 Low [facility] COMPREHENSIVE METABOLIC PANE [place] 12-07-2023 Albumin [Mass/Vol] 3.1 g/dL Low 3.2-5.3 [facility] Comment on above: Performed By: #### C ADARSH CBCA, 2776-03, ####[facility] MAIN LAB ([id number])5[address] [place] [address] ALP [Catalytic activity/Vol] 56 U/L Normal 39-130 [facility] Comment on above: Performed By: #### C ADARSH CBCA, 2776-03, ####[facility] MAIN LAB ([id number])5[address] [place] [address] ALT [Catalytic activity/Vol] 13 U/L Normal 0-31 [facility] Comment on above: Performed By: #### C ADARSH CBCA, 2776-03, ####[facility] MAIN LAB ([id number])5[address] [place] [address] Anion gap [Moles/Vol] 8 mmol/L Normal 5-15 [facility] Comment on above: Performed By: #### C ADARSH CBCA, 2776-03, ####[facility] MAIN LAB ([id number])5[address] [place] [address] AST [Catalytic activity/Vol] 22 U/L Normal 0-41 [facility] Comment on above: Performed By: #### C OFE ALTAMIRANO, 2776-03, ####[facility] MAIN LAB ([id number])[address] [place] [address] Bilirubin [Mass/Vol] 0.5 mg/dL Normal 0.3-1.2 [facility] Comment on above: Performed By: #### C OFE ALTAMIRANO, 2776-03, ####[facility] MAIN LAB ([id number])5[address] [facility] [place] [place] [address] Calcium [Mass/Vol] 8.8 mg/dL Normal 8.5-10.5 [facility] Comment on above: Performed By: #### C OFE ALTAMIRANO, 2776-03, ####[facility] MAIN LAB ([id number])5[address] [facility] [place] [address] Chloride [Moles/Vol] 102 mmol/L Normal 98-109 [facility] Comment on above: Performed By: #### C OFE ALTAMIRANO, 2776-03, ####[facility] MAIN LAB ([id number])5[address] [facility] [place] [place] [address] CO2 [Moles/Vol] 28 mmol/L Normal 22-32 [facility] Comment on above: Performed By: #### C OFE ALTAMIRANO, 2776-03, ####[facility] MAIN LAB ([id number])5200 [facility] [place] [address] Creatinine [Mass/Vol] 2.07 mg/dL High 0.40-1.00 [facility] Comment on above: Result Comment: METH OD TRACEABLE TO IDMS STANDARD Performed By: #### C OFE ALTAMIRANO, 2776-03, ####[facility] MAIN LAB ([id number])5[address] [facility] [place] [address] GFR/1.73 sq M.predicted among non-blacks MDRD (S/P/Bld) [Vol rate/Area] 28 mL/min/{1.73_m2} Low >59 [facility] Comment on above: Result Comment: Repo rted eGFR is based on theCKD-EPI 2020 equation that doesnot use a race coefficient. Performed By: #### C OFE ALTAMIRANO, 2776-03, ####[facility] MAIN LAB ([id number])[address] [place] [address] Glucose [Mass/Vol] 99 mg/dL Normal 65-99 [facility] Comment on above: Performed By: #### C OFE ALTAMIRANO, 2776-03, ####[facility] MAIN LAB ([id number])5[address] [facility] [place] [place] [address] Potassium [Moles/Vol] 3.3 mmol/L Low 3.5-5.0 [facility] Comment on above: Performed By: #### C OFE ALTAMIRANO, 2776-03, ####[facility] MAIN LAB ([id number])5[address] [facility] [place] [address] Protein [Mass/Vol] 5.6 g/dL Low 6.0-8.0 [facility] Comment on above: Performed By: #### C OFE ALTAMIRANO, 2776-03, ####[facility] MAIN LAB ([id number])5[address] [facility] [place] [place] [address] Sodium [Moles/Vol] 138 mmol/L Normal 134-146 [facility] Comment on above: Performed By: #### C OFE ALTAMIRANO, 2776-03, ####[facility] MAIN LAB ([id number])5[address] [facility] [place] [address] Urea nitrogen [Mass/Vol] 27 mg/dL High 5-23 [facility] Comment on above: Performed By: #### C OFE ALTAMIRANO, 2776-03, ####[facility] MAIN LAB ([id number])[address] [place] [address] Comprehensive metabolic pane rome 12-07-2023 Albumin [Mass/Vol] 3.1 g/dL Low 3.2 - 5.3 g/dL [facility] ALP [Catalytic activity/Vol] 56 U/L 39 - 130 U/L [facility] ALT No additional P-5'-P [Catalytic activity/Vol] 13 U/L 0 - 31 U/L [facility] Anion gap [Moles/Vol] 8 mmol/L 5 - 15 mmol/L [facility] AST [Catalytic activity/Vol] 22 U/L 0 - 41 U/L [facility] Bilirubin [Mass/Vol] 0.5 mg/dL 0.3 - 1 .2 mg/dL [facility] Calcium [Mass/Vol] 8.8 mg/dL 8.5 - 10. 5 mg/dL [facility] Chloride [Moles/Vol] 102 mmol/L 98 - 10 9 mmol/L [facility] CO2 [Moles/Vol] 28 mmol/L 22 - 32 mmol/L [facility] Creatinine [Mass/Vol] 2.07 mg/dL High 0.40 - 1.00 mg/dL [facility] Comment on above: METHOD TRACEABLE TO [facility] STANDARD eGFR (CKD-EPI)non-race dependent 28 Low - PINF [facility] Comment on above: Reported eGFR is based on the CKD-EPI 2020 equation that does not use a race coefficient. Glucose [Mass/Vol] 99 mg/dL 65 - 99 mg/dL [facility] Potassium [Moles/Vol] 3.3 mmol/L Low 3.5 - 5.0 mmol/L [facility] Protein [Mass/Vol] 5.6 g/dL Low 6.0 - 8.0 g/dL [facility] Sodium [Moles/Vol] 138 mmol/L 134 - 146 mmol/L [facility] Urea nitrogen [Mass/Vol] 27 mg/dL High 5 - 23 mg/dL [facility] MAGNESIUMon 12-07-2023 Magnesium [Mass/Vol] 2.0 mg/dL Normal 1.8-2.6 [facility] Comment on above: Performed By: #### C MP, CBCA, 2777-1, 72826-4 ####[facility] LAB ([id number])5200 [facility] [place] [address] Magnesiumon 12-07-2023 Magnesium [Mass/Vol] 2.0 mg/dL 1.8 - 2 .6 mg/dL [facility] No Panel Informationon 12-06 Interpretation and review of laboratory results Abnormal [facility] PHOSPHORUSon 12-07-2023 Phosphate [Mass/Vol] 5.4 mg/dL High 2.4-4.9 [facility] Comment on above: Performed By: #### C MP, CBCA, 2777-1, ####[facility] MA[facility] LAB ([id number])5200 [facility] [place] [address] Phosphoruson 12-07-2023 Phosphate [Mass/Vol] 5.4 mg/dL High 2.4 - 4 .9 mg/dL [facility] CBC AND AUTO DIFFon 12-06-19 24 ABSOLUTE BASOPHIL 0.0 X10E9/L Normal 0.0-0.2 [facility] Comment on above: Performed By: #### 2 777-1, CBCA, CMP, ####[facility] ([id number])5[address] [facility] [place] [address] ABSOLUTE NEUTROPHIL 1.9 X10E9/L Normal 1.5-6.6 [facility] Comment on above: Performed By: #### 2 777-1, CBCA, CMP, ####[facility] ([id number])5200 [facility] [place] [address] Basophils/100 WBC (Bld) 0.5 % Normal [facility] Comment on above: Performed By: #### 2 777-1, CBCA, CMP, ####[facility] ([id number])5200 [facility] [place] [address] Eosinophils (Bld) [#/Vol] 0.2 10*3/uL Normal 0.0-0.4 [facility] Comment on above: Performed By: #### 2 777-1, CBCA, CMP, ####[facility] ([id number])5[address] [facility] [place] [address] Eosinophils/100 WBC (Bld) 7.7 % Normal [facility] Comment on above: Performed By: #### 2 777-1, CBCA, CMP, ####[facility] ([id number])5200 [facility] [address] Erythrocyte distribution width (RBC) [Ratio] 14.1 % Normal 11.5-15.0 [facility] Comment on above: Performed By: #### 2 777-1, CBCA, CMP, ####[facility] ([id number])5200 [facility] [place] [address] Hematocrit (Bld) [Volume fraction] 23.0 % Low 35-47 [facility] Comment on above: Performed By: #### 2 777-1, CBCA, CMP, ####[facility] ([id number])5200 [facility] [place] [address] Hemoglobin (Bld) [Mass/Vol] 7.8 g/dL Low 11.7-15.5 [facility] Comment on above: Performed By: #### 2 777-1, CBCA, CMP, ####[facility] ([id number])5200 [facility] [place] [address] Lymphocytes (Bld) [#/Vol] 0.4 10*3/uL Low 1.0-3.5 [facility] Comment on above: Performed By: #### 2 777-1, CBCA, CMP, ####[facility] ([id number])5200 [facility] [place] [address] Lymphocytes/100 WBC (Bld) 13.8 % Normal [facility] Comment on above: Performed By: #### 2 777-1, CBCA, CMP, ####[facility] ([id number])5[address] [place] [address] MCH (RBC) [Entitic mass] 30.3 pg Normal 27-34 [facility] Comment on above: Performed By: #### 2 777-1, CBCA, CMP, ####[facility] ([id number])5[address] [place] [address] MCHC (RBC) [Mass/Vol] 34.0 g/dL Normal 32-36 [facility] Comment on above: Performed By: #### 2 777-1, CBCA, CMP, ####[facility] ([id number])5200 [place] [address] MCV (RBC) [Entitic vol] 89 fL Normal 80-100 [facility] Comment on above: Performed By: #### 2 777-1, CBCA, CMP, ####[facility] ([id number])5200 [facility] [place] [address] Monocytes (Bld) [#/Vol] 0.4 10*3/uL Normal 0-0.9 [facility] Comment on above: Performed By: #### 2 777-1, CBCA, CMP, ####[facility] ([id number])5200 [facility] [place] [address] Monocytes/100 WBC (Bld) 14.0 % Normal [facility] Comment on above: Performed By: #### 2 777-1, CBCA, CMP, ####[facility] ([id number])5200 [facility] [place] [address] Neutrophils/100 WBC (Bld) 64.0 % Normal [facility] Comment on above: Performed By: #### 2 777-1, CBCA, CMP, ####[facility] ([id number])5200 [place] [address] Platelet mean volume (Bld) [Entitic vol] 6.7 fL Low 7-12 [facility] Comment on above: Performed By: #### 2 777-1, CBCA, CMP, ####[facility] ([id number])5200 [place] [address] Platelets (Bld) [#/Vol] 172 10*3/uL Normal 150-450 [facility] Comment on above: Performed By: #### 2 777-1, CBCA, CMP, ####[facility] MA[facility] ([id number])5200 [place] [address] RBC COUNT 2.58 X10E12/L Low 3.80-5.20 [facility] Comment on above: Performed By: #### 2 777-1, CBCA, CMP, ####[facility] MAIN [facility] ([id number])5200 [place] [address] WBC (Bld) [#/Vol] 3.0 10*3/uL Low 4.0-11.0 [facility] Comment on above: Performed By: #### 2 777-1, CBCA, CMP, ####[facility] MAIN [facility] ([id number])5200 [place] [address] CBC auto differentialon 10-0 -2023 Basophils (Bld) [#/Vol] 0.0 10*3/uL [facility] Basophils/100 WBC (Bld) 0.5 % [facility] Eosinophils (Bld) [#/Vol] 0.2 10*3/uL [facility] Eosinophils/100 WBC (Bld) 7.7 % [facility] Erythrocyte distribution width (RBC) [Ratio] 14.1 % 11.5 - 15.0 % [facility] Hematocrit (Bld) [Volume fraction] 23.0 % Low 35 - 47 % [facility] Hemoglobin (Bld) [Mass/Vol] 7.8 g/dL Low 11.7 - 15.5 g/dL [facility] Interpretation and review of laboratory results Abnormal [facility] Lymphocytes (Bld) [#/Vol] 0.4 10*3/uL Low [facility] Lymphocytes/100 WBC (Bld) 13.8 % [facility] MCH (RBC) [Entitic mass] 30.3 pg 27 - 34 pg [facility] MCHC (RBC) [Mass/Vol] 34.0 g/dL 32 - 36 g/dL P [facility] MCV (RBC) [Entitic vol] 89 fL 80 - 100 fL [facility] Monocytes (Bld) [#/Vol] 0.4 10*3/uL [facility] Monocytes/100 WBC (Bld) 14.0 % [facility] Neutrophils (Bld) [#/Vol] 1.9 10*3/uL [facility] Neutrophils/100 WBC (Bld) 64.0 % [facility] Platelet mean volume (Bld) [Entitic vol] 6.7 fL Low 7 - 12 fL [facility] Platelets (Bld) [#/Vol] 172 10*3/uL [facility] RBC (Bld) [#/Vol] 2.58 10*6/uL Low [facility] WBC corrected for nucl RBC Auto (Bld) [#/Vol] 3.0 Low [facility] COMPREHENSIVE METABOLIC PANE [place] 12-06-2023 Albumin [Mass/Vol] 3.3 g/dL Normal 3.2-5.3 [facility] Comment on above: Performed By: #### 2 777-1, CBCA, CMP, 60505-7 ####[facility] MA[facility] ([id number])5200 [place] [address] ALP [Catalytic activity/Vol] 55 U/L Normal 39-130 [facility] Comment on above: Performed By: #### 2 777-1, CBCA, CMP, 23926-6 ####[facility] MAIN LAB ([id number])5200 [place] [address] ALT [Catalytic activity/Vol] 9 U/L Normal 0-31 [facility] Comment on above: Performed By: #### 2 777-1, CBCA, CMP, 77951-8 ####[facility] MAIN LAB ([id number])5[address] [place] [address] Anion gap [Moles/Vol] 9 mmol/L Normal 5-15 [facility] Comment on above: Performed By: #### 2 777-1, CBCA, CMP, ####[facility] MA[facility] ([id number])5[address] [place] [address] AST [Catalytic activity/Vol] 16 U/L Normal 0-41 [facility] Comment on above: Performed By: #### 2 777-1, CBCA, CMP, ####[facility] MA[facility] ([id number])5[address] [place] [address] Bilirubin [Mass/Vol] 0.5 mg/dL Normal 0.3-1.2 [facility] Comment on above: Performed By: #### 2 777-1, CBCA, CMP, ####[facility] MA[facility] ([id number])5[address] [place] [address] Calcium [Mass/Vol] 9.0 mg/dL Normal 8.5-10.5 [facility] Comment on above: Performed By: #### 2 777-1, CBCA, CMP, ####[facility] ([id number])5[address] [place] [address] Chloride [Moles/Vol] 102 mmol/L Normal 98-109 [facility] Comment on above: Performed By: #### 2 777-1, CBCA, CMP, ####[facility] MA[facility] ([id number])5[address] [place] [address] CO2 [Moles/Vol] 26 mmol/L Normal 22-32 [facility] Comment on above: Performed By: #### 2 777-1, CBCA, CMP, ####[facility] MA[facility] ([id number])5200 [place] [address] Creatinine [Mass/Vol] 2.34 mg/dL High 0.40-1.00 [facility] Comment on above: Result Comment: METH OD TRACEABLE TO IDMS STANDARD Performed By: #### 2 777-1, CBCA, CMP, ####[facility] MAIN [facility] ([id number])[address] [place] [address] GFR/1.73 sq M.predicted among non-blacks MDRD (S/P/Bld) [Vol rate/Area] 24 mL/min/{1.73_m2} Low >59 [facility] Comment on above: Result Comment: Repo rted eGFR is based on theCKD-EPI 2020 equation that doesnot use a race coefficient. Performed By: #### 2 777-1, CBCA, CMP, ####[facility] MA[facility] LAB ([id number])5[address] [place] [address] Glucose [Mass/Vol] 100 mg/dL High 65-99 [facility] Comment on above: Performed By: #### 2 777-1, CBCA, CMP, ####[facility] MAIN LAB ([id number])[address] [place] [address] Potassium [Moles/Vol] 3.5 mmol/L Normal 3.5-5.0 [facility] Comment on above: Performed By: #### 2 777-1, CBCA, CMP, ####[facility] MA[facility] ([id number])5[address] [place] [address] Protein [Mass/Vol] 5.8 g/dL Low 6.0-8.0 [facility] Comment on above: Performed By: #### 2 777-1, CBCA, CMP, ####[facility] MAIN LAB ([id number])5[address] [place] [address] Sodium [Moles/Vol] 137 mmol/L Normal 134-146 [facility] Comment on above: Performed By: #### 2 777-1, CBCA, CMP, ####[facility] MAIN LAB ([id number])5200 [place] [address] Urea nitrogen [Mass/Vol] 21 mg/dL Normal 5-23 [facility] Comment on above: Performed By: #### 2 777-1, CBCA, [facility], 33494-8 ####[facility] MAIN LAB ([id number])5200 [place] [address] Comprehensive metabolic pane rome 12-06-2023 Albumin [Mass/Vol] 3.3 g/dL 3.2 - 5.3 g/dL [facility] ALP [Catalytic activity/Vol] 55 U/L 39 - 130 U/L [facility] ALT No additional P-5'-P [Catalytic activity/Vol] 9 U/L 0 - 31 U/L [facility] Anion gap [Moles/Vol] 9 mmol/L 5 - 15 mmol/L [facility] AST [Catalytic activity/Vol] 16 U/L 0 - 41 U/L [facility] Bilirubin [Mass/Vol] 0.5 mg/dL 0.3 - 1 .2 mg/dL [facility] Calcium [Mass/Vol] 9.0 mg/dL 8.5 - 10. 5 mg/dL [facility] Chloride [Moles/Vol] 102 mmol/L 98 - 10 9 mmol/L [facility] CO2 [Moles/Vol] 26 mmol/L 22 - 32 mmol/L [facility] Creatinine [Mass/Vol] 2.34 mg/dL High 0.40 - 1.00 mg/dL [facility] Comment on above: METHOD TRACEABLE TO IDOR STANDARD eGFR (CKD-EPI)non-race dependent 24 Low - PINF [facility] Comment on above: Reported eGFR is based on the CKD-EPI 202 equation that does not use a race coefficient. Glucose [Mass/Vol] 100 mg/dL High 65 - 99 mg/dL [facility] Potassium [Moles/Vol] 3.5 mmol/L 3.5 - 5.0 mmol/L [facility] Protein [Mass/Vol] 5.8 g/dL Low 6.0 - 8.0 g/dL [facility] Sodium [Moles/Vol] 137 mmol/L 134 - 146 mmol/L [facility] Urea nitrogen [Mass/Vol] 21 mg/dL 5 - 23 mg/dL [facility] MAGNESIUMon 12-06-2023 Magnesium [Mass/Vol] 2.3 mg/dL Normal 1.8-2.6 [facility] Comment on above: Performed By: #### 1 9123-9 ####[facility] MAIN LAB ([id number])5200 [facility] [place] [address] Magnesium [Mass/Vol] 1.5 mg/dL Low 1.8-2.6 [facility] Comment on above: Performed By: #### 2 777-1, CBCA, CMP, 15254-3 ####[facility] MAIN LAB ([id number])5200 [facility] [place] [address] Magnesiumon 12-06-2023 Magnesium [Mass/Vol] 2.3 mg/dL 1.8 - 2 .6 mg/dL [facility] Magnesium [Mass/Vol] 1.5 mg/dL Low 1.8 - 2 .6 mg/dL [facility] Magnesium [Mass/Vol]on 12-05 [facility] No Panel Informationon 12-05 Interpretation and review of laboratory results Abnormal [facility] PHOSPHORUSon 12-06-2023 Phosphate [Mass/Vol] 5.0 mg/dL High 2.4-4.9 [facility] Comment on above: Performed By: #### 2 777-1, CBCA, CMP, 51883-1 ####[facility] MAIN LAB ([id number])5200 [facility] [place] [address] Phosphoruson 12-06-2023 Phosphate [Mass/Vol] 5.0 mg/dL High 2.4 - 4 .9 mg/dL [facility] URINALYSISon 12-06-2023 Bilirubin Ql (U) Negative Normal NEG [facility] Comment on above: Performed By: #### U A ####[facility] MAIN LAB ([id number])5200 [facility] [place] [address] BLOOD/HGB Negative Normal NEG [facility] Comment on above: Performed By: #### U A ####[facility] MA[facility] ([id number])5200 [facility] [place] [address] Color (U) YELLOW Normal YELLOW [facility] Comment on above: Performed By: #### U A ####[facility] LAB ([id number])5200 [facility] [place] [address] Glucose Ql (U) Negative Normal NEG [facility] Comment on above: Performed By: #### U A ####[facility] LAB ([id number])5200 [facility] [address] Ketones Ql (U) Negative Normal NEG [facility] Comment on above: Performed By: #### U A ####[facility] LAB ([id number])5200 [facility] [address] Leukocyte esterase Test strip Ql (U) Trace Abnormal NEG [facility] Comment on above: Performed By: #### U A ####[facility] LAB ([id number])5200 [facility] [address] Nitrite Ql (U) Negative Normal NEG [facility] Comment on above: Performed By: #### U A ####[facility] LAB ([id number])5200 [facility] [place] [address] pH (U) 6.5 [pH] Normal 5.0-8.5 [facility] Comment on above: Performed By: #### U A ####[facility] LAB ([id number])5200 [facility] [place] [address] Protein Ql (U) Negative Normal NEG [facility] Comment on above: Performed By: #### U A ####[facility] LAB ([id number])5200 [place] [address] R.B.CELLS 1 /hpf Normal 0-5 [facility] Comment on above: Performed By: #### U A ####[facility] ([id number])5200 [facility] [address] Specific gravity (U) [Rel density] 1.010 Normal 1.003-1.035 [facility] Comment on above: Performed By: #### U A ####[facility] MAIN LAB ([id number])5200 [place] [address] SQUAMOUS EPITHELIUM 1 /hpf Normal 0-5 [facility] Comment on above: Performed By: #### U A ####[facility] MAIN LAB ([id number])5200 [place] [address] TRANSITIONAL EPITH 1 /hpf High 0 [facility] Comment on above: Performed By: #### U A ####[facility] LAB ([id number])5200 [place] [address] TURBIDITY CLEAR Normal CLEAR [facility] Comment on above: Performed By: #### U A ####[facility] ([id number])5[address] [place] [address] Urobilinogen Qn (U) 0.2 {Ansley'U}/dL Normal <1.1 [facility] Comment on above: Performed By: #### U A ####[facility] ([id number])5[address] [place] [address] W.B.CELLS 3 /hpf Normal 0-5 [facility] Comment on above: Performed By: #### U A ####[facility] ([id number])5[address] [place] [address] Urinalysison 12-06-2023 Bilirubin Ql (U) Negative Negative^Ne g ative [facility] Color (U) YELLOW YELLOW^YELLO W [facility] Epithelial cells Auto (Urine sed) [#/Area] 1 [facility] Epithelial cells.non-squamous LM.LPF (Urine sed) [#/Area] 1 High 0 /hpf [facility] Glucose (U) [Mass/Vol] Negative Negative^Neg ative mg/dL [facility] Hemoglobin Auto test strip Ql (U) Negative Negative^Neg ative [facility] Interpretation and review of laboratory results Abnormal [facility] Ketones (U) [Mass/Vol] Negative Negative^Neg ative mg/dL [facility] Leukocyte esterase Auto test strip Ql (U) Trace Abnormal Negative^Neg ative [facility] Nitrite Auto test strip Ql (U) Negative Negative^Neg ative [facility] pH (U) 6.5 [pH] 5.0 - 8.5 [facility] Protein (U) [Mass/Vol] Negative Negative^Neg ative mg/dL [facility] RBC Auto (Urine sed) [#/Area] 1 [facility] Specific gravity Refractometry automated (U) [Rel density] 1.010 1.003 - 1.035 [facility] Turbidity Ql (U) CLEAR CLEAR^CLEAR [facility] Urobilinogen Qn (U) 0.2 [facility] WBC Auto (Urine sed) [#/Area] 3 [facility] BLOOD CULTUREon 12-05-2023 Bacteria identified Aer cx Nom (Bld) CULTURE RESULTS NO GROWTH 5 DAYS Normal [facility] Bacteria identified Aer cx Nom (Bld) CULTURE RESULTS NO GROWTH 5 DAYS Normal [facility] CBC AND AUTO DIFFon 12-05-19 24 ABSOLUTE BASOPHIL 0.0 X10E9/L Normal 0.0-0.2 [facility] Comment on above: Performed By: #### 1 91239, 2776-03, CBCA, CMP ####[facility] MAIN LAB ([id number])5200 [place] [address] ABSOLUTE NEUTROPHIL 2.6 X10E9/L Normal 1.5-6.6 [facility] Comment on above: Performed By: #### 1 9123-9, 27708-30, CBCA, CMP ####[facility] MAIN LAB ([id number])5200 [place] [address] Basophils/100 WBC (Bld) 0.7 % Normal [facility] Comment on above: Performed By: #### 1 9123-9, 27708-30, CBCA, CMP ####[facility] MAIN [facility] ([id number])5200 [place] [address] Eosinophils (Bld) [#/Vol] 0.3 10*3/uL Normal 0.0-0.4 [facility] Comment on above: Performed By: #### 1 9123-9, 2776-03, CBCA, CMP ####[facility] MA[facility] LAB ([id number])5200 [facility] [place] [address] Eosinophils/100 WBC (Bld) 8.8 % Normal [facility] Comment on above: Performed By: #### 1 91, 2776-03, CBCA, CMP ####[facility] ([id number])5200 [place] [address] Erythrocyte distribution width (RBC) [Ratio] 13.8 % Normal 11.5-15.0 [facility] Comment on above: Performed By: #### 1 91, 2776-03, CBCA, CMP ####[facility] ([id number])5200 [place] [address] Hematocrit (Bld) [Volume fraction] 22.2 % Low 35-47 [facility] Comment on above: Performed By: #### 1 91, 2776-03, CBCA, CMP ####[facility] ([id number])5200 [place] [address] Hemoglobin (Bld) [Mass/Vol] 7.6 g/dL Low 11.7-15.5 [facility] Comment on above: Performed By: #### 1 91239, 2776-03, CBCA, CMP ####[facility] MA[facility] ([id number])5200 [place] [address] Lymphocytes (Bld) [#/Vol] 0.5 10*3/uL Low 1.0-3.5 [facility] Comment on above: Performed By: #### 1 91, 2776-03, CBCA, CMP ####[facility] ([id number])5200 [place] [address] Lymphocytes/100 WBC (Bld) 11.8 % Normal [facility] Comment on above: Performed By: #### 1 9122-10, 2776-03, CBCA, CMP ####[facility] ([id number])5[address] [place] [address] MCH (RBC) [Entitic mass] 30.5 pg Normal 27-34 [facility] Comment on above: Performed By: #### 1 9122-10, 2776-03, CBCA, CMP ####[facility] ([id number])5200 [facility] [place] [address] MCHC (RBC) [Mass/Vol] 34.4 g/dL Normal 32-36 [facility] Comment on above: Performed By: #### 1 9122-10, 2776-03, CBCA, CMP ####[facility] ([id number])5200 [facility] [place] [address] MCV (RBC) [Entitic vol] 89 fL Normal 80-100 [facility] Comment on above: Performed By: #### 1 9122-10, 2776-03, CBCA, CMP ####[facility] ([id number])5200 [facility] [place] [address] Monocytes (Bld) [#/Vol] 0.5 10*3/uL Normal 0-0.9 [facility] Comment on above: Performed By: #### 1 9122-10, 2776-03, CBCA, CMP ####[facility] ([id number])5200 [facility] [place] [address] Monocytes/100 WBC (Bld) 11.8 % Normal [facility] Comment on above: Performed By: #### 1 9122-10, 2776-03, CBCA, CMP ####[facility] ([id number])5200 [facility] [place] [address] Neutrophils/100 WBC (Bld) 66.9 % Normal [facility] Comment on above: Performed By: #### 1 9122-10, 2776-03, CBCA, CMP ####[facility] ([id number])5200 [facility] [place] [address] Platelet mean volume (Bld) [Entitic vol] 6.4 fL Low 7-12 [facility] Comment on above: Performed By: #### 1 9123-9, 2777-1, CBCA, CMP ####[facility] ([id number])5200 [facility] [place] [address] Platelets (Bld) [#/Vol] 195 10*3/uL Normal 150-450 [facility] Comment on above: Performed By: #### 1 9123-9, 2777-, CBCA, CMP ####[facility] ([id number])5200 [facility] [place] [place] [address] RBC COUNT 2.50 X10E12/L Low 3.80-5.20 [facility] Comment on above: Performed By: #### 1 9123-9, 2777-, CBCA, CMP ####[facility] ([id number])5200 [place] [address] WBC (Bld) [#/Vol] 3.9 10*3/uL Low 4.0-11.0 [facility] Comment on above: Performed By: #### 1 9123-9, 2777-, CBCA, CMP ####[facility] ([id number])5200 [facility] [place] [address] CBC auto differentialon 10-0 Basophils (Bld) [#/Vol] 0.0 10*3/uL [facility] Basophils/100 WBC (Bld) 0.7 % [facility] Eosinophils (Bld) [#/Vol] 0.3 10*3/uL [facility] Eosinophils/100 WBC (Bld) 8.8 % [facility] Erythrocyte distribution width (RBC) [Ratio] 13.8 % 11.5 - 15.0 % [facility] Hematocrit (Bld) [Volume fraction] 22.2 % Low 35 - 47 % [facility] Hemoglobin (Bld) [Mass/Vol] 7.6 g/dL Low 11.7 - 15.5 g/dL [facility] Interpretation and review of laboratory results Abnormal [facility] Lymphocytes (Bld) [#/Vol] 0.5 10*3/uL Low [facility] Lymphocytes/100 WBC (Bld) 11.8 % [facility] MCH (RBC) [Entitic mass] 30.5 pg 27 - 34 pg [facility] MCHC (RBC) [Mass/Vol] 34.4 g/dL 32 - 36 g/dL P [facility] MCV (RBC) [Entitic vol] 89 fL 80 - 100 fL [facility] Monocytes (Bld) [#/Vol] 0.5 10*3/uL [facility] Monocytes/100 WBC (Bld) 11.8 % [facility] Neutrophils (Bld) [#/Vol] 2.6 10*3/uL [facility] Neutrophils/100 WBC (Bld) 66.9 % [facility] Platelet mean volume (Bld) [Entitic vol] 6.4 fL Low 7 - 12 fL [facility] Platelets (Bld) [#/Vol] 195 10*3/uL [facility] RBC (Bld) [#/Vol] 2.50 10*6/uL [facility] WBC corrected for nucl RBC Auto (Bld) [#/Vol] 3.9 Low [facility] COMPREHENSIVE METABOLIC PANE [place] 12-05-2023 Albumin [Mass/Vol] 3.2 g/dL Normal 3.2-5.3 [facility] Comment on above: Performed By: #### 1 9123-9, 2777-, CBCA, CMP ####[facility] ([id number])5200 [place] [address] ALP [Catalytic activity/Vol] 58 U/L Normal 39-130 [facility] Comment on above: Performed By: #### 1 9123-9, 2777-1, CBCA, CMP ####[facility] ([id number])5200 [place] [address] ALT [Catalytic activity/Vol] 9 U/L Normal 0-31 [facility] Comment on above: Performed By: #### 1 9123-9, 2776-03, CBCA, CMP ####[facility] ([id number])5200 [place] [address] Anion gap [Moles/Vol] 8 mmol/L Normal 5-15 [facility] Comment on above: Performed By: #### 1 9122-, 2776-03, CBCA, CMP ####[facility] ([id number])5200 [place] [address] AST [Catalytic activity/Vol] 15 U/L Normal 0-41 [facility] Comment on above: Performed By: #### 1 91-, 2776-03, CBCA, CMP ####[facility] ([id number])5200 [place] [address] Bilirubin [Mass/Vol] 0.4 mg/dL Normal 0.3-1.2 [facility] Comment on above: Performed By: #### 1 91-, 2776-03, CBCA, CMP ####[facility] ([id number])5200 [place] [address] Calcium [Mass/Vol] 9.4 mg/dL Normal 8.5-10.5 [facility] Comment on above: Performed By: #### 1 91-, 2776-03, CBCA, CMP ####[facility] ([id number])5200 [facility] [place] [address] Chloride [Moles/Vol] 105 mmol/L Normal 98-109 [facility] Comment on above: Performed By: #### 1 9123-, 2776-03, CBCA, CMP ####[facility] ([id number])5200 [place] [address] CO2 [Moles/Vol] 26 mmol/L Normal 22-32 [facility] Comment on above: Performed By: #### 1 91-, 2776-03, CBCA, CMP ####[facility] ([id number])5200 [place] [address] Creatinine [Mass/Vol] 2.61 mg/dL High 0.40-1.00 [facility] Comment on above: Result Comment: METH OD TRACEABLE TO IDMS STANDARD Performed By: #### 1 9123-9, 2776-03, CBCA, CMP ####[facility] ([id number])5[address] [place] [address] GFR/1.73 sq M.predicted among non-blacks MDRD (S/P/Bld) [Vol rate/Area] 21 mL/min/{1.73_m2} Low >59 [facility] Comment on above: Result Comment: Repo rted eGFR is based on theCKD-EPI 2020 equation that doesnot use a race coefficient. Performed By: #### 1 9123-9, 2776-03, CBCA, CMP ####[facility] MA[facility] ([id number])[address] [place] [address] Glucose [Mass/Vol] 95 mg/dL Normal 65-99 [facility] Comment on above: Performed By: #### 1 9123-9, 2776-03, CBCA, CMP ####[facility] MAIN LAB ([id number])[address] [place] [address] Potassium [Moles/Vol] 3.6 mmol/L Normal 3.5-5.0 [facility] Comment on above: Performed By: #### 1 9123-9, 2776-03, CBCA, CMP ####[facility] MA[facility] ([id number])5[address] [place] [address] Protein [Mass/Vol] 5.6 g/dL Low 6.0-8.0 [facility] Comment on above: Performed By: #### 1 9123-9, 2776-03, CBCA, CMP ####[facility] MA[facility] ([id number])5[address] [place] [address] Sodium [Moles/Vol] 139 mmol/L Normal 134-146 [facility] Comment on above: Performed By: #### 1 9123-9, 2777-1, CBCA, CMP ####[facility] MAIN LAB ([id number])5200 [facility] [address] Urea nitrogen [Mass/Vol] 19 mg/dL Normal 5-23 [facility] Comment on above: Performed By: #### 1 9123-9, 2777-1, CBCA, CMP ####[facility] MA[facility] LAB ([id number])5200 [place] [address] Cobalamin (Vitamin B12) [Mas s/Vol]on 12-05-2023 [facility] Comprehensive metabolic pane rome 12-05-2023 Albumin [Mass/Vol] 3.2 g/dL 3.2 - 5.3 g/dL [facility] ALP [Catalytic activity/Vol] 58 U/L 39 - 130 U/L [facility] ALT No additional P-5'-P [Catalytic activity/Vol] 9 U/L 0 - 31 U/L [facility] Anion gap [Moles/Vol] 8 mmol/L 5 - 15 mmol/L [facility] AST [Catalytic activity/Vol] 15 U/L 0 - 41 U/L [facility] Bilirubin [Mass/Vol] 0.4 mg/dL 0.3 - 1 .2 mg/dL [facility] Calcium [Mass/Vol] 9.4 mg/dL 8.5 - 10. 5 mg/dL [facility] Chloride [Moles/Vol] 105 mmol/L 98 - 10 9 mmol/L [facility] CO2 [Moles/Vol] 26 mmol/L 22 - 32 mmol/L [facility] Creatinine [Mass/Vol] 2.61 mg/dL High 0.40 - 1.00 mg/dL [facility] Comment on above: METHOD TRACEABLE TO IDOR STANDARD eGFR (CKD-EPI)non-race dependent 21 Low - PINF [facility] Comment on above: Reported eGFR is based on the CKD-EPI 2020 equation that does not use a race coefficient. Glucose [Mass/Vol] 95 mg/dL 65 - 99 mg/dL [facility] Potassium [Moles/Vol] 3.6 mmol/L 3.5 - 5.0 mmol/L [facility] Protein [Mass/Vol] 5.6 g/dL Low 6.0 - 8.0 g/dL [facility] Sodium [Moles/Vol] 139 mmol/L 134 - 146 mmol/L [facility] Urea nitrogen [Mass/Vol] 19 mg/dL 5 - 23 mg/dL [facility] Folateon 12-05-2023 Folate [Mass/Vol] 9.7 ng/mL 5.8 - PINF ng/mL [facility] Comment on above: NEW REFERENCE RANGE Folate [Mass/Vol]on 12-05-19 [facility] Iron and TIBCon 12-05-2023 Interpretation and review of laboratory results Abnormal [facility] Iron [Mass/Vol] ug/dL Low 50 - 170 ug/dL [facility] Iron binding capacity [Mass/Vol] 272 ug/dL 250 - 425 ug/dL [facility] Iron saturation [Mass fraction] Low [facility] MAGNESIUMon 12-05-2023 Magnesium [Mass/Vol] 1.8 mg/dL Normal 1.8-2.6 [facility] Comment on above: Performed By: #### 1 9123-9, 2823-3 ####[facility] MA[facility] LAB ([id number])5200 [place] [address] Magnesium [Mass/Vol] 1.5 mg/dL Low 1.8-2.6 [facility] Comment on above: Performed By: #### 1 9123-9, 2777-1, CBCA, CMP ####[facility] MA[facility] LAB ([id number])5[address] [place] [address] Magnesiumon 12-05-2023 Magnesium [Mass/Vol] 1.8 mg/dL 1.8 - 2 .6 mg/dL [facility] Magnesium [Mass/Vol] 1.5 mg/dL Low 1.8 - 2 .6 mg/dL [facility] No Panel Informationon 12-04 [facility] Interpretation and review of laboratory results Abnormal [facility] PHOSPHORUSon 12-05-2023 Phosphate [Mass/Vol] 4.1 mg/dL Normal 2.4-4.9 [facility] Comment on above: Performed By: #### 1 9123-9, 2777-1, CBCA, CMP ####[facility] MA[facility] LAB ([id number])5200 [place] [address] POTASSIUMon 12-05-2023 Potassium [Moles/Vol] 3.6 mmol/L Normal 3.5-5.0 [facility] Comment on above: Performed By: #### 1 9123-9, 2823-3 ####[facility] MA[facility] LAB ([id number])5[address] [place] [address] Phosphoruson 12-05-2023 Phosphate [Mass/Vol] 4.1 mg/dL 2.4 - 4 .9 mg/dL [facility] Potassiumon 12-05-2023 Potassium [Moles/Vol] 3.6 mmol/L 3.5 - 5.0 mmol/L [facility] RESP PATHOGENS/[id number] 12-05-2023 Respiratory pathogens DNA and RNA panel KYLE+non-probe (Nph) Normal [facility] Comment on above: Performed By: #### 8 2159-5 ####[facility] MA[facility] LAB ([id number])5[address] [place], [place] [address] ([id number])[address] [facility], [address], [place] [address] Respiratory pathogens DNA an d RNA panel KYLE+non-probe (Nph)on 12-05-2023 Adenovirus DNA KYLE+non-probe Ql (Nph) Not detected Not Detected^Not Detected [facility] B. parapertussis [id number] DNA KYLE+non-probe Ql (Nph) Not detected Not Detected^Not Detected [facility] B. pertussis toxin promoter region KYLE+non-probe Ql (Nph) Not detected Not Detected^Not Detected [facility] C. pneumoniae DNA KYLE+non-probe Ql (Nph) Not detected Not Detected^Not Detected [facility] FLUAV RNA KYLE+non-probe Ql (Nph) Not detected Not Detected^Not Detected [facility] FLUBV RNA KYLE+non-probe Ql (Nph) Not detected Not Detected^Not Detected [facility] HCoV 229E RNA KYLE+non-probe Ql (Nph) Not detected Not Detected^Not Detected [facility] HCoV HKU1 RNA KYLE+non-probe Ql (Nph) Not detected Not Detected^Not Detected [facility] HCoV NL63 RNA KYLE+non-probe Ql (Nph) Not detected Not Detected^Not Detected [facility] HCoV OC43 RNA KYLE+non-probe Ql (Nph) Not detected Not Detected^Not Detected [facility] hMPV RNA KYLE+non-probe Ql (Nph) Not detected Not Detected^Not Detected [facility] M. pneumoniae DNA KYLE+non-probe Ql (Nph) Not detected Not Detected^Not Detected [facility] Parainfluenza virus 1 RNA KYLE+non-probe Ql (Nph) Not detected Not Detected^Not Detected [facility] Parainfluenza virus 2 RNA KYLE+non-probe Ql (Nph) Not detected Not Detected^Not Detected [facility] Parainfluenza virus 3 RNA KYLE+non-probe Ql (Nph) Not detected Not Detected^Not Detected [facility] Parainfluenza virus 4 RNA KYLE+non-probe Ql (Nph) Not detected Not Detected^Not Detected [facility] Rhinovirus+Enteroviru s RNA KYLE+non-probe Ql (Nph) Not detected Not Detected^Not Detected [facility] RSV RNA KYLE+non-probe Ql (Nph) Not detected Not Detected^Not Detected [facility] SARS-CoV-2 (COVID-19) RNA KYLE+probe Ql (Resp) Not detected Not Detected^Not Detected [facility] Comment on above: NOTE The [employer] [...] other pathogens. The agent(s) detected by the [employer]Fire RP2.1 may not be the definite cause [...] Specimen source Nom (Body fld) NASO PHARYNX [facility] Vitamin B12on 12-05-2023 Cobalamin (Vitamin B12) [Mass/Vol] 185 pg/mL 180 - 914 pg/mL [facility] XR CHEST 1 VWon 12-05-2023 XR CHEST 1 VW Normal [facility] XR Chest Single viewon 12-04 Clinical history: Fever Views: 1 Comparison: None Findings/Impression: 1. Heart size stable. No focal infiltrate or volume loss. No pneumothorax. 2. Scoliosis. 3. No pneumothorax nor large effusion. 4. In summary findings most consistent with mild vascular congestion.. Finalized by Brice Sanders MD on 12/05/2023 12:16 PM Brice Puentes MD - 12/05/2023 Clinical history: Fever Views: 1 Comparison: None Findings/Impression: 1. Heart size stable. No focal infiltrate or volume loss. No pneumothorax. 2. Scoliosis. 3. No pneumothorax nor large effusion. 4. In summary findings most consistent with mild vascular congestion.. Finalized by Brice Sanders MD on 12/05/2023 12:16 PM [facility] Radiology Study observation (narrative) [facility] XR Chest Single viewOrdered By: Brice Sanders on 12-05-2023 [facility] Work Phone: Bacteria identified Cx Nom ( U)on 12-04-2023 Service comment (Unsp spec) [Interp] NO GROWTH AT <1000 CFU/mL [facility] CBC AND AUTO DIFFon 12-04-19 24 ABSOLUTE BASOPHIL 0.0 X10E9/L Normal 0.0-0.2 [facility] Comment on above: Performed By: #### 2 777-1, CBCA, CMP, 01945-2 ####[facility] LAB ([id number])5200 [place] [address] ABSOLUTE NEUTROPHIL 3.1 X10E9/L Normal 1.5-6.6 [facility] Comment on above: Performed By: #### 2 777-1, CBCA, CMP, 43853-2 ####[facility] LAB ([id number])5200 [place] [address] Basophils/100 WBC (Bld) 0.3 % Normal [facility] Comment on above: Performed By: #### 2 777-1, CBCA, CMP, 45239-3 ####[facility] LAB ([id number])5200 [place] [address] Eosinophils (Bld) [#/Vol] 0.4 10*3/uL Normal 0.0-0.4 [facility] Comment on above: Performed By: #### 2 777-1, CBCA, CMP, 56336-1 ####[facility] MAIN LAB ([id number])5200 [place] [address] Eosinophils/100 WBC (Bld) 8.5 % Normal [facility] Comment on above: Performed By: #### 2 777-1, CBCA, CMP, 34656-6 ####[facility] MA[facility] LAB ([id number])[address] [place] [address] Erythrocyte distribution width (RBC) [Ratio] 14.0 % Normal 11.5-15.0 [facility] Comment on above: Performed By: #### 2 777-1, CBCA, CMP, ####[facility] MA[facility] ([id number])[address] [place] [address] Hematocrit (Bld) [Volume fraction] 21.2 % Low 35-47 [facility] Comment on above: Performed By: #### 2 777-1, CBCA, CMP, ####[facility] LAB ([id number])5200 [facility] [place] [address] Hemoglobin (Bld) [Mass/Vol] 7.3 g/dL Low 11.7-15.5 [facility] Comment on above: Performed By: #### 2 777-1, CBCA, CMP, ####[facility] ([id number])5200 [facility] [place] [address] Lymphocytes (Bld) [#/Vol] 0.4 10*3/uL Low 1.0-3.5 [facility] Comment on above: Performed By: #### 2 777-1, CBCA, CMP, ####[facility] ([id number])5200 [facility] [place] [address] Lymphocytes/100 WBC (Bld) 10.0 % Normal [facility] Comment on above: Performed By: #### 2 777-1, CBCA, CMP, ####[facility] ([id number])5200 [facility] [place] [address] MCH (RBC) [Entitic mass] 30.7 pg Normal 27-34 [facility] Comment on above: Performed By: #### 2 777-1, CBCA, CMP, ####[facility] ([id number])5200 [facility] [place] [address] MCHC (RBC) [Mass/Vol] 34.3 g/dL Normal 32-36 [facility] Comment on above: Performed By: #### 2 777-1, CBCA, CMP, ####[facility] ([id number])[address] [place] [address] MCV (RBC) [Entitic vol] 90 fL Normal 80-100 [facility] Comment on above: Performed By: #### 2 777-1, CBCA, CMP, ####[facility] ([id number])5200 [facility] [place] [address] Monocytes (Bld) [#/Vol] 0.5 10*3/uL Normal 0-0.9 [facility] Comment on above: Performed By: #### 2 777-1, CBCA, CMP, ####[facility] ([id number])5200 [facility] [place] [address] Monocytes/100 WBC (Bld) 10.6 % Normal [facility] Comment on above: Performed By: #### 2 777-1, CBCA, CMP, ####[facility] ([id number])5200 [facility] [place] [address] Neutrophils/100 WBC (Bld) 70.6 % Normal [facility] Comment on above: Performed By: #### 2 777-1, CBCA, CMP, ####[facility] ([id number])5200 [facility] [place] [address] Platelet mean volume (Bld) [Entitic vol] 6.4 fL Low 7-12 [facility] Comment on above: Performed By: #### 2 777-1, CBCA, CMP, ####[facility] ([id number])[address] [place] [address] Platelets (Bld) [#/Vol] 201 10*3/uL Normal 150-450 [facility] Comment on above: Performed By: #### 2 777-1, CBCA, CMP, ####[facility] MA[facility] LAB ([id number])5200 [place] [address] RBC COUNT 2.37 X10E12/L Low 3.80-5.20 [facility] Comment on above: Performed By: #### 2 777-1, CBCA, CMP, ####[facility] ([id number])5200 [place] [address] WBC (Bld) [#/Vol] 4.3 10*3/uL Normal 4.0-11.0 [facility] Comment on above: Performed By: #### 2 777-1, CBCA, CMP, ####[facility] ([id number])5200 [place] [address] CBC auto differentialon 10-0 Basophils (Bld) [#/Vol] 0.0 10*3/uL [facility] Basophils/100 WBC (Bld) 0.3 % [facility] Eosinophils (Bld) [#/Vol] 0.4 10*3/uL [facility] Eosinophils/100 WBC (Bld) 8.5 % [facility] Erythrocyte distribution width (RBC) [Ratio] 14.0 % 11.5 - 15.0 % [facility] Hematocrit (Bld) [Volume fraction] 21.2 % Low 35 - 47 % [facility] Hemoglobin (Bld) [Mass/Vol] 7.3 g/dL Low 11.7 - 15.5 g/dL [facility] Interpretation and review of laboratory results Abnormal [facility] Lymphocytes (Bld) [#/Vol] 0.4 10*3/uL Low [facility] Lymphocytes/100 WBC (Bld) 10.0 % [facility] MCH (RBC) [Entitic mass] 30.7 pg 27 - 34 pg [facility] MCHC (RBC) [Mass/Vol] 34.3 g/dL 32 - 36 g/dL [facility] MCV (RBC) [Entitic vol] 90 fL 80 - 100 fL [facility] Monocytes (Bld) [#/Vol] 0.5 10*3/uL [facility] Monocytes/100 WBC (Bld) 10.6 % [facility] Neutrophils (Bld) [#/Vol] 3.1 10*3/uL [facility] Neutrophils/100 WBC (Bld) 70.6 % [facility] Platelet mean volume (Bld) [Entitic vol] 6.4 fL Low 7 - 12 fL [facility] Platelets (Bld) [#/Vol] 201 10*3/uL [facility] RBC (Bld) [#/Vol] 2.37 10*6/uL [facility] WBC corrected for nucl RBC Auto (Bld) [#/Vol] 4.3 [facility] COMPREHENSIVE METABOLIC PANE [place] 12-04-2023 Albumin [Mass/Vol] 3.2 g/dL Normal 3.2-5.3 [facility] Comment on above: Performed By: #### 2 777-1, CBCA, CMP, 77845-5 ####[facility] ([id number])5200 [place] [address] ALP [Catalytic activity/Vol] 56 U/L Normal 39-130 [facility] Comment on above: Performed By: #### 2 777-1, CBCA, CMP, 72188-1 ####[facility] ([id number])5[address] [place] [address] ALT [Catalytic activity/Vol] 9 U/L Normal 0-31 [facility] Comment on above: Performed By: #### 2 777-1, CBCA, CMP, 70874-0 ####[facility] ([id number])5[address] [place] [place] [facility] [address] Anion gap [Moles/Vol] 6 mmol/L Normal 5-15 [facility] Comment on above: Performed By: #### 2 777-1, CBCA, CMP, 11378-0 ####[facility] ([id number])5[address] [place] [place] [facility] [address] AST [Catalytic activity/Vol] 15 U/L Normal 0-41 [facility] Comment on above: Performed By: #### 2 777-1, CBCA, CMP, ####[facility] ([id number])[address] [place] [address] Bilirubin [Mass/Vol] 0.5 mg/dL Normal 0.3-1.2 [facility] Comment on above: Performed By: #### 2 777-1, CBCA, CMP, ####[facility] ([id number])5[address] [place] [address] Calcium [Mass/Vol] 9.2 mg/dL Normal 8.5-10.5 [facility] Comment on above: Performed By: #### 2 777-1, CBCA, CMP, ####[facility] ([id number])5200 [facility] [place] [address] Chloride [Moles/Vol] 107 mmol/L Normal 98-109 [facility] Comment on above: Performed By: #### 2 777-1, CBCA, CMP, ####[facility] ([id number])5200 [facility] [place] [address] CO2 [Moles/Vol] 25 mmol/L Normal 22-32 [facility] Comment on above: Performed By: #### 2 777-1, CBCA, CMP, ####[facility] ([id number])5200 [facility] [place] [address] Creatinine [Mass/Vol] 2.81 mg/dL High 0.40-1.00 [facility] Comment on above: Result Comment: METH OD TRACEABLE TO IDMS STANDARD Performed By: #### 2 777-1, CBCA, CMP, ####[facility] ([id number])5[address] [place] [address] GFR/1.73 sq M.predicted among non-blacks MDRD (S/P/Bld) [Vol rate/Area] 19 mL/min/{1.73_m2} Low >59 [facility] Comment on above: Result Comment: Repo rted eGFR is based on theCKD-EPI 2020 equation that doesnot use a race coefficient. Performed By: #### 2 777-1, CBCA, CMP, ####[facility] ([id number])5200 [place] [address] Glucose [Mass/Vol] 91 mg/dL Normal 65-99 [facility] Comment on above: Performed By: #### 2 777-1, CBCA, CMP, ####[facility] ([id number])5[address] [place] [address] Potassium [Moles/Vol] 3.4 mmol/L Low 3.5-5.0 [facility] Comment on above: Performed By: #### 2 777-1, CBCA, CMP, ####[facility] ([id number])5[address] [place] [address] Protein [Mass/Vol] 5.4 g/dL Low 6.0-8.0 [facility] Comment on above: Performed By: #### 2 777-1, CBCA, CMP, ####[facility] ([id number])5[address] [place] [address] Sodium [Moles/Vol] 138 mmol/L Normal 134-146 [facility] Comment on above: Performed By: #### 2 777-1, CBCA, CMP, ####[facility] ([id number])5200 [facility] [place] [address] Urea nitrogen [Mass/Vol] 24 mg/dL High 5-23 [facility] Comment on above: Performed By: #### 2 777-1, CBCA, CMP, ####[facility] ([id number])5[address] [place] [address] Calcium.ionized (Bld) [Mass/ Vol]on 12-04-2023 [facility] IONIZED CALCIUM 5.0 mg/dL Normal 4.5-5.3 [facility] Comment on above: Performed By: #### 3 8230-9 ####[facility] ([id number])5200 [place] [address] Comprehensive metabolic pane rome 12-04-2023 Albumin [Mass/Vol] 3.2 g/dL 3.2 - 5.3 g/dL [facility] ALP [Catalytic activity/Vol] 56 U/L 39 - 130 U/L [facility] ALT No additional P-5'-P [Catalytic activity/Vol] 9 U/L 0 - 31 U/L [facility] Anion gap [Moles/Vol] 6 mmol/L 5 - 15 mmol/L [facility] AST [Catalytic activity/Vol] 15 U/L 0 - 41 U/L [facility] Bilirubin [Mass/Vol] 0.5 mg/dL 0.3 - 1 .2 mg/dL [facility] Calcium [Mass/Vol] 9.2 mg/dL 8.5 - 10. 5 mg/dL [facility] Chloride [Moles/Vol] 107 mmol/L 98 - 10 9 mmol/L [facility] CO2 [Moles/Vol] 25 mmol/L 22 - 32 mmol/L [facility] Creatinine [Mass/Vol] 2.81 mg/dL High 0.40 - 1.00 mg/dL [facility] Comment on above: METHOD TRACEABLE TO IDOR STANDARD eGFR (CKD-EPI)non-race dependent 19 Low - PINF [facility] Comment on above: Reported eGFR is based on the CKD-EPI 2020 equation that does not use a race coefficient. Glucose [Mass/Vol] 91 mg/dL 65 - 99 mg/dL [facility] Interpretation and review of laboratory results Abnormal [facility] Potassium [Moles/Vol] 3.4 mmol/L Low 3.5 - 5.0 mmol/L [facility] Protein [Mass/Vol] 5.4 g/dL Low 6.0 - 8.0 g/dL [facility] Sodium [Moles/Vol] 138 mmol/L 134 - 146 mmol/L [facility] Urea nitrogen [Mass/Vol] 24 mg/dL High 5 - 23 mg/dL [facility] Folate [Mass/Vol]on 12-04-19 24 FOLIC ACID 9.7 ng/mL Normal >5.8 [facility] Comment on above: Result Comment: NEW REFERENCE RANGE Performed By: #### 2 823-3 ####[facility] ([id number])5200 [place] [address]#### 2132-9, 2284-8, FEPR ####[facility] ([id number])[address], [place] [address] IRON PROFILEon 12-04-2023 Iron [Mass/Vol] ug/dL Low 50-170 [facility] Comment on above: Performed By: #### 2 823-3 ####[facility] ([id number])5200 [place] [address]#### 2132-9, 2284-8, FEPR ####[facility] ([id number])[address], [place] [address] IRON BINDING 272 ug/dL Normal 250-425 [facility] Comment on above: Performed By: #### 2 823-3 ####[facility] ([id number])5200 [place] [address]#### 2132-9, 2284-8, FEPR ####[facility] ([id number])[address], [place] [address] IRON SATURATION <4 Low 15-50 [facility] Comment on above: Performed By: #### 2 823-3 ####[facility] ([id number])5200 [place] [address]#### 2132-9, 2284-8, FEPR ####[facility] ([id number])[address], [place] [address] Ionized calciumon 12-04-2023 Calcium.ionized (Bld) [Mass/Vol] 5.0 mg/dL 4.5 - 5.3 mg/dL [facility] MAGNESIUMon 12-04-2023 Magnesium [Mass/Vol] 1.9 mg/dL Normal 1.8-2.6 [facility] Comment on above: Performed By: #### 2 777-1, CBCA, CMP, ####[facility] ([id number])5[address] [facility] [place] [address] Magnesiumon 12-04-2023 Magnesium [Mass/Vol] 1.9 mg/dL 1.8 - 2 .6 mg/dL [facility] No Panel Informationon 12-03 [facility] PHOSPHORUSon 12-04-2023 Phosphate [Mass/Vol] 3.9 mg/dL Normal 2.4-4.9 [facility] Comment on above: Performed By: #### 2 777-1, CBCA, CMP, ####[facility] ([id number])5200 [facility] [place] [address] POTASSIUMon 12-04-2023 Potassium [Moles/Vol] 3.7 mmol/L Normal 3.5-5.0 [facility] Comment on above: Performed By: #### 2 823-3 ####[facility] ([id number])5200 [place] [address]#### 2132-9, 2284-8, FEPR ####[facility] ([id number])2130 [facility], [address] [address] Phosphoruson 12-04-2023 Phosphate [Mass/Vol] 3.9 mg/dL 2.4 - 4 .9 mg/dL [facility] Potassiumon 12-04-2023 Potassium [Moles/Vol] 3.7 mmol/L 3.5 - 5.0 mmol/L [facility] Potassium [Moles/Vol]on [facility] Protein electrophoresis, ser umon 12-04-2023 Albumin [Mass/Vol] 3.1 g/dL Low 3.4 - 5.3 g/dL [facility] Alpha 1 globulin Elph [Mass/Vol] 0.4 g/dL 0.1 - 0.4 g/dL [facility] Alpha 2 globulin Elph [Mass/Vol] 0.7 g/dL 0.4 - 1.1 g/dL [facility] Beta globulin Elph [Mass/Vol] 0.7 g/dL 0.5 - 1.2 g/dL [facility] Gamma globulin Elph [Mass/Vol] 0.6 g/dL 0.5 - 1.6 g/dL [facility] Interpretation and review of laboratory results Abnormal [facility] Pathologist interpretation (Bld) [Interp] Unremarkable protein distribution, no monoclonal bands. [facility] Protein [Mass/Vol] 5.4 g/dL Low 6.0 - 8.0 g/dL [facility] US RETROPERITONEAL COMPLETEo n 12-04-2023 US RETROPERITONEAL COMPLETE Normal [facility] US Retroperitoneumon 024 ULTRASOUND RETROPERITONEUM INDICATION: [...] Jesus Singh MD on 12/04/2023 9:23 AM RUSTRAPA Jesus Singh MD - 12/04/2023 ULTRASOUND RETROPERITONEUM [...] Jesus Singh MD on 12/04/2023 9:23 AM [facility] Radiology Study observation (narrative) [facility] [employer] US RetroperitoneumOrdered By : Jesus Singh on 12-04-2023 [facility] Work Phone: VITAMIN B12on 12-04-2023 Cobalamin (Vitamin B12) [Mass/Vol] 185 pg/mL Normal 180-914 [facility] Comment on above: Performed By: #### 2 823-3 ####[facility] MA[facility] ([id number])5200 [place] [address]#### 2132-9, 2284-8, FEPR ####[facility] ([id number])2130 [facility], [address], [place] [address] JUSTIN Screen w/ Reflexon 12-02 Nuclear Ab IA Ql (S) Negative Negativ e^Neg ative [facility] Comment on above: Testing performed using multiplex flow immunoassay. Eleven different antigens associated with systemic autoimmune diseases (dsDNA,Sm,Sm/EXECUTIVE VICE PRESIDENT AND CHIEF FINANCIAL OFFICER,EXECUTIVE VICE PRESIDENT AND CHIEF FINANCIAL OFFICER,Chromatin, SSA,SSB,Alice-1,Scl70,Ribo P,Centromere B) are included in this screening test. APTTon 12-03-2023 aPTT Coag (PPP) [Time] 35 s [facility] Auto Diff (add on use only)o n 12-03-2023 Basophils (Bld) [#/Vol] 0.0 10*3/[facility] Bas[facility]/100 WBC (Bld) 0.4 % [facility] Eosinophils (Bld) [#/Vol] 0.3 10*3/uL [facility] Eosinophils/100 WBC (Bld) 6.0 % [facility] Lymphocytes (Bld) [#/Vol] 0.6 10*3/uL Low [facility] Lymphocytes/100 WBC (Bld) 10.9 % [facility] Monocytes (Bld) [#/Vol] 0.5 10*3/uL [facility] Monocytes/100 WBC (Bld) 9.4 % [facility] Neutrophils (Bld) [#/Vol] 4.2 10*3/uL [facility] Neutrophils/100 WBC (Bld) 73.3 % [facility] CBC without diffon Erythrocyte distribution width (RBC) [Ratio] 14.2 % 11.5 - 15.0 % [facility] Hematocrit (Bld) [Volume fraction] 22.9 % Low 35 - 47 % [facility] Hemoglobin (Bld) [Mass/Vol] 8.0 g/dL Low 11.7 - 15.5 g/dL [facility] MCH (RBC) [Entitic mass] 31.3 pg 27 - 34 pg [facility] MCHC (RBC) [Mass/Vol] 34.9 g/dL 32 - 36 g/dL P [facility] MCV (RBC) [Entitic vol] 90 fL 80 - 100 fL [facility] Platelet mean volume (Bld) [Entitic vol] 6.5 fL Low 7 - 12 fL [facility] Platelets (Bld) [#/Vol] 233 10*3/uL [facility] RBC (Bld) [#/Vol] 2.55 10*6/uL [facility] WBC corrected for nucl RBC Auto (Bld) [#/Vol] 5.8 [facility] CK Totalon 12-03-2023 CK [Catalytic activity/Vol] 52 U/L 24 - 170 U/L [facility] CK [Catalytic activity/Vol]o n 12-03-2023 [facility] CPK 52 U/L Normal 24-170 [facility] Comment on above: Performed By: #### C 34, 6969-0, 00289-5, 6968-2, SPE, [id number] ####[facility] ([id number])2130 [facility], [address] [address]#### 2157-6 ####[facility] ([id number])[address] [place] [address] COMPLEMENT PROFILEon 024 COMPLEMENT C3 158 mg/dL Normal 86-184 [facility] Comment on above: Performed By: #### C 34, 6969-0, 50632-2, 6968-2, SPE, 36937-2 ####[facility] ([id number])[address] [place] [address], [address], [place] [address]#### 2157-6 ####[facility] ([id number])5200 [place] [address] COMPLEMENT C4 38 mg/dL Normal 16-47 [facility] Comment on above: Performed By: #### C 34, 6969-0, 49429-5, 6968-2, SPE, 22388-7 ####[facility] ([id number])[address] [place] [address], [address] [address]#### 2157-6 ####[facility] ([id number])5200 [place] [address] COMPLETE BLOOD COUNTon 12-02 Erythrocyte distribution width (RBC) [Ratio] 14.2 % Normal 11.5-15.0 [facility] Comment on above: Performed By: #### C MP, CBC, , , DIFFA ####[facility] ([id number])5200 [place] [address] Hematocrit (Bld) [Volume fraction] 22.9 % Low 35-47 [facility] Comment on above: Performed By: #### C MP, CBC, , , DIFFA ####[facility] ([id number])5200 [place] [address] Hemoglobin (Bld) [Mass/Vol] 8.0 g/dL Low 11.7-15.5 [facility] Comment on above: Performed By: #### C MP, CBC, , , DIFFA ####[facility] ([id number])5200 [place] [address] MCH (RBC) [Entitic mass] 31.3 pg Normal 27-34 [facility] Comment on above: Performed By: #### C MP, CBC, , , DIFFA ####[facility] ([id number])5[address] [place] [address] MCHC (RBC) [Mass/Vol] 34.9 g/dL Normal 32-36 [facility] Comment on above: Performed By: #### C MP, CBC, , , DIFFA ####[facility] ([id number])5[address] [facility] [facility] [place] [address] MCV (RBC) [Entitic vol] 90 fL Normal 80-100 [facility] Comment on above: Performed By: #### C MP, CBC, , , DIFFA ####[facility] ([id number])5200 [facility] [place] [address] Platelet mean volume (Bld) [Entitic vol] 6.5 fL Low 7-12 [facility] Comment on above: Performed By: #### C MP, CBC, , , DIFFA ####[facility] ([id number])5200 [facility] [place] [address] Platelets (Bld) [#/Vol] 233 10*3/uL Normal 150-450 [facility] Comment on above: Performed By: #### C MP, CBC, , , DIFFA ####[facility] ([id number])5200 [facility] [place] [address] RBC COUNT 2.55 X10E12/L Low 3.80-5.20 [facility] Comment on above: Performed By: #### C MP, CBC, , , DIFFA ####[facility] ([id number])5200 [facility] [place] [address] WBC (Bld) [#/Vol] 5.8 10*3/uL Normal 4.0-11.0 [facility] Comment on above: Performed By: #### C MP, CBC, , , DIFFA ####[facility] ([id number])[address] [place] [address] COMPREHENSIVE METABOLIC PANE [place] 12-03-2023 Albumin [Mass/Vol] 3.3 g/dL Normal 3.2-5.3 [facility] Comment on above: Performed By: #### C MP, CBC, , , DIFFA ####[facility] ([id number])5[address] [place] [address] ALP [Catalytic activity/Vol] 60 U/L Normal 39-130 [facility] Comment on above: Performed By: #### C MP, CBC, , , DIFFA ####[facility] ([id number])5[address] [place] [address] ALT [Catalytic activity/Vol] 10 U/L Normal 0-31 [facility] Comment on above: Performed By: #### C MP, CBC, , , DIFFA ####[facility] ([id number])5[address] [place] [address] Anion gap [Moles/Vol] 8 mmol/L Normal 5-15 [facility] Comment on above: Performed By: #### C MP, CBC, , , DIFFA ####[facility] ([id number])5[address] [place] [address] AST [Catalytic activity/Vol] 19 U/L Normal 0-41 [facility] Comment on above: Performed By: #### C MP, CBC, , , DIFFA ####[facility] ([id number])5[address] [place] [address] Bilirubin [Mass/Vol] 0.6 mg/dL Normal 0.3-1.2 [facility] Comment on above: Performed By: #### C MP, CBC, , , DIFFA ####[facility] ([id number])5[address] [place] [facility] [place] [address] Calcium [Mass/Vol] 9.2 mg/dL Normal 8.5-10.5 [facility] Comment on above: Performed By: #### C MP, CBC, , , DIFFA ####[facility] ([id number])5200 [facility] [place] [address] Chloride [Moles/Vol] 104 mmol/L Normal 98-109 [facility] Comment on above: Performed By: #### C MP, CBC, , , DIFFA ####[facility] ([id number])5200 [facility] [place] [address] CO2 [Moles/Vol] 25 mmol/L Normal 22-32 [facility] Comment on above: Performed By: #### C MP, CBC, , , DIFFA ####[facility] ([id number])5200 [facility] [place] [address] Creatinine [Mass/Vol] 2.49 mg/dL High 0.40-1.00 [facility] Comment on above: Result Comment: METH OD TRACEABLE TO IDMS STANDARD Performed By: #### C MP, CBC, , , DIFFA ####[facility] ([id number])5200 [facility] [place] [address] GFR/1.73 sq M.predicted among non-blacks MDRD (S/P/Bld) [Vol rate/Area] 23 mL/min/{1.73_m2} Low >59 [facility] Comment on above: Result Comment: Repo rted eGFR is based on theCKD-EPI 2020 equation that doesnot use a race coefficient. Performed By: #### C MP, CBC, , , DIFFA ####[facility] ([id number])5[address] [place] [address] Glucose [Mass/Vol] 103 mg/dL High 65-99 [facility] Comment on above: Performed By: #### C MP, CBC, , , DIFFA ####[facility] ([id number])5200 [place] [address] Potassium [Moles/Vol] 3.1 mmol/L Low 3.5-5.0 [facility] Comment on above: Performed By: #### C MP, CBC, , , DIFFA ####[facility] ([id number])5200 [place] [address] Protein [Mass/Vol] 5.5 g/dL Low 6.0-8.0 [facility] Comment on above: Performed By: #### C MP, CBC, , , DIFFA ####[facility] ([id number])5200 [place] [address] Sodium [Moles/Vol] 137 mmol/L Normal 134-146 [facility] Comment on above: Performed By: #### C MP, CBC, , , DIFFA ####[facility] ([id number])5200 [place] [address] Urea nitrogen [Mass/Vol] 25 mg/dL High 5-23 [facility] Comment on above: Performed By: #### C MP, CBC, , , DIFFA ####[facility] ([id number])5200 [place] [address] Complement profile (C3 AND C 4)on 12-03-2023 Complement C3 [Mass/Vol] 158 mg/dL 86 - 184 mg/dL [facility] Complement C4 [Mass/Vol] 38 mg/dL 16 - 47 mg/dL [facility] Comprehensive metabolic pane rome 12-03-2023 Albumin [Mass/Vol] 3.3 g/dL 3.2 - 5.3 g/dL [facility] ALP [Catalytic activity/Vol] 60 U/L 39 - 130 U/L [facility] ALT No additional P-5'-P [Catalytic activity/Vol] 10 U/L 0 - 31 U/L [facility] Anion gap [Moles/Vol] 8 mmol/L 5 - 15 mmol/L [facility] AST [Catalytic activity/Vol] 19 U/L 0 - 41 U/L [facility] Bilirubin [Mass/Vol] 0.6 mg/dL 0.3 - 1 .2 mg/dL [facility] Calcium [Mass/Vol] 9.2 mg/dL 8.5 - 10. 5 mg/dL [facility] Chloride [Moles/Vol] 104 mmol/L 98 - 10 9 mmol/L [facility] CO2 [Moles/Vol] 25 mmol/L 22 - 32 mmol/L [facility] Creatinine [Mass/Vol] 2.49 mg/dL High 0.40 - 1.00 mg/dL [facility] Comment on above: METHOD TRACEABLE TO [facility] STANDARD eGFR (CKD-EPI)non-race dependent 23 Low - PINF [facility] Comment on above: Reported eGFR is based on the CKD-EPI 2020 equation that does not use a race coefficient. Glucose [Mass/Vol] 103 mg/dL High 65 - 99 mg/dL [facility] Potassium [Moles/Vol] 3.1 mmol/L Low 3.5 - 5.0 mmol/L [facility] Protein [Mass/Vol] 5.5 g/dL Low 6.0 - 8.0 g/dL [facility] Sodium [Moles/Vol] 137 mmol/L 134 - 146 mmol/L [facility] Urea nitrogen [Mass/Vol] 25 mg/dL High 5 - 23 mg/dL [facility] DIFFERENTIALon 12-03-2023 ABSOLUTE BASOPHIL 0.0 X10E9/L Normal 0.0-0.2 [facility] Comment on above: Performed By: #### C MP, CBC, 94111-5, 27475-7, DIFFA ####[facility] ([id number])5200 [place] [address] ABSOLUTE NEUTROPHIL 4.2 X10E9/L Normal 1.5-6.6 [facility] Comment on above: Performed By: #### C MP, CBC, , , DIFFA ####[facility] ([id number])5200 [facility] [address] Basophils/100 WBC (Bld) 0.4 % Normal [facility] Comment on above: Performed By: #### C MP, CBC, , , DIFFA ####[facility] ([id number])5200 [place] [address] Eosinophils (Bld) [#/Vol] 0.3 10*3/uL Normal 0.0-0.4 [facility] Comment on above: Performed By: #### C MP, CBC, , , DIFFA ####[facility] ([id number])5200 [place] [address] Eosinophils/100 WBC (Bld) 6.0 % Normal [facility] Comment on above: Performed By: #### C MP, CBC, , , DIFFA ####[facility] ([id number])5200 [place] [address] Lymphocytes (Bld) [#/Vol] 0.6 10*3/uL Low 1.0-3.5 [facility] Comment on above: Performed By: #### C MP, CBC, , , DIFFA ####[facility] ([id number])5200 [place] [address] Lymphocytes/100 WBC (Bld) 10.9 % Normal [facility] Comment on above: Performed By: #### C MP, CBC, , , DIFFA ####[facility] ([id number])5200 [place] [address] Monocytes (Bld) [#/Vol] 0.5 10*3/uL Normal 0-0.9 [facility] Comment on above: Performed By: #### C MP, CBC, , , DIFFA ####[facility] ([id number])5200 [facility] [place] [address] Monocytes/100 WBC (Bld) 9.4 % Normal [facility] Comment on above: Performed By: #### C MP, CBC, , , DIFFA ####[facility] ([id number])5200 [facility] [place] [place] [address] Neutrophils/100 WBC (Bld) 73.3 % Normal [facility] Comment on above: Performed By: #### C MP, CBC, , , DIFFA ####[facility] ([id number])5200 [facility] [place] [address] ECG 12 leadon 12-03-2023 TRACEMASTERVUE [facility] Glomerular basement membrane IgG ABon 12-03-2023 Glomerular basement membrane IgG Qn (S) NINF [facility] Glomerular basement membrane IgG Qn (S)on 12-03-2023 GBM IgG Ab <0.2 Normal <1.0 [facility] Comment on above: Performed By: #### C 34, 6969-0, 36349-5, 6968-2, SPE, [id number] ####[facility] ([id number])[address] [place] [address], [address], [place] [address]#### 2157-6 ####[facility] ([id number])5200 [facility] [place] [address] MAGNESIUMon 12-03-2023 Magnesium [Mass/Vol] 2.2 mg/dL Normal 1.8-2.6 [facility] Comment on above: Performed By: #### 2 823-3, ####[facility] ([id number])5200 [facility] [place] [address] Magnesium [Mass/Vol] 1.5 mg/dL Low 1.8-2.6 [facility] Comment on above: Performed By: #### C MP, CBC, 90283-2, 67213-9, DIFFA ####[facility] ([id number])5200 [place] [address] Magnesiumon 12-03-2023 Magnesium [Mass/Vol] 2.2 mg/dL 1.8 - 2 .6 mg/dL [facility] Magnesium [Mass/Vol] 1.5 mg/dL Low 1.8 - 2 .6 mg/dL [facility] Myeloperoxidase ABon 024 Myeloperoxidase Ab Qn (S) NINF [facility] Myeloperoxidase Ab Qn (S)on 12-03-2023 Myeloperoxidase Ab <0.2 Normal <1.0 [facility] Comment on above: Performed By: #### C 34, 6969-0, 94152-1, 6968-2, SPE, 72708-9 ####[facility] ([id number])[address] [address]#### 2157-6 ####[facility] ([id number])5200 [place] [address] No Panel Informationon 12-02 [facility] Interpretation and review of laboratory results Abnormal [facility] Interpretation and review of laboratory results Abnormal [facility] Nuclear Ab IA Ql (S)on 12-02 [facility] JUSTIN Screen w/reflex Negative Normal NEG [facility] Comment on above: Result Comment: Test ing performed using multiplex flowimmunoassay. Eleven different antigensassociated with systemic autoimmunediseases (dsDNA,Sm,Sm/EXECUTIVE VICE PRESIDENT AND CHIEF FINANCIAL OFFICER,EXECUTIVE VICE PRESIDENT AND CHIEF FINANCIAL OFFICER,Chromatin,SSA,SSB,Alice-1,Scl70,Ribo P,Centromere B)are included in this screening test. Performed By: #### C 34, 6969-0, 11665-2, 6968-2, SPE, 25004-9 ####[facility] ([id number])2130 [facility], [address] [address]#### 2157-6 ####[facility] ([id number])5200 [facility] [place] [address] POTASSIUMon 12-03-2023 Potassium [Moles/Vol] 3.6 mmol/L Normal 3.5-5.0 [facility] Comment on above: Performed By: #### 2 823-3, 37222-6 ####[facility] ([id number])5200 [place] [address] PROTEIN CREAT RATIOon 2023 RANDOM URINE PROTEIN 130 mg/L High <120 [facility] Comment on above: Performed By: #### U PCR, UA, 2955-3 ####[facility] ([id number])5200 [place] [address] U/PRO/CLERICAL INVESTIGATOR RATIO CALC 0.30 High <0.2 [facility] Comment on above: Result Comment: Neph rotic Syndrome is associated with ratios >3.5 Performed By: #### U PCR, UA, 2955-3 ####[facility] ([id number])5200 [place] [address] URINE CREATININE,RDM 43.64 mg/dL Normal [facility] Comment on above: Performed By: #### U PCR, UA, 2955-3 ####[facility] ([id number])5200 [place] [address] Potassiumon 12-03-2023 Potassium [Moles/Vol] 3.6 mmol/L 3.5 - 5.0 mmol/L [facility] Protein creat ratioon 2023 Creatinine (U) [Mass/Vol] 43.64 mg/dL [facility] Interpretation and review of laboratory results Abnormal [facility] Protein (U) [Mass/Vol] 130 mg/L High NINF - 120 mg/L [facility] Protein/Creatinine (U) [Ratio] 0.30 High NINF - 0.2 [facility] Comment on above: Nephrotic Syndrome i s associated with ratios >3.5 Proteinase 3 AB PR3on 2023 Proteinase 3 Ab Qn (S) NINF [facility] Proteinase 3 Ab Qn (S)on Proteinase 3 IgG Ab <0.2 Normal <1.0 [facility] Comment on above: Performed By: #### C 34, 6969-0, 77158-2, 6968-2, SPE, 38226-8 ####[facility] ([id number])2130 [facility], [address] [place] [address]#### 2157-6 ####[facility] ([id number])5200 [place] [address] SERUM PROTEIN ELECTROPHORESI Son 12-03-2023 Albumin [Mass/Vol] 3.1 g/dL Low 3.4-5.3 [facility] Comment on above: Performed By: #### C 34, 6969-0, 61491-0, 6968-2, SPE, 63739-1 ####[facility] ([id number])[address] [place] [address], [address] [place] [address]#### 2157-6 ####[facility] ([id number])5200 [place] [address] ALPHA 1 GLOBULIN 0.4 g/dL Normal 0.1-0.4 [facility] Comment on above: Performed By: #### C 34, 6969-0, 37119-7, 6968-2, SPE, 52810-1 ####[facility] ([id number])2130 [facility], [address] [place] [address]#### 2157-6 ####[facility] ([id number])5200 [place] [address] ALPHA 2 GLOBULIN 0.7 g/dL Normal 0.4-1.1 [facility] Comment on above: Performed By: #### C 34, 6969-0, 01592-3, 6968-2, SPE, 01431-3 ####[facility] ([id number])2130 [facility], [address] [place] [address]#### 2157-6 ####[facility] ([id number])5200 [place] [address] BETA GLOBULIN 0.7 g/dL Normal 0.5-1.2 [facility] Comment on above: Performed By: #### C 34, 6969-0, 02808-9, 6968-2, [facility] [place] [place], [address]-5 ####[facility] ([id number])2130 [facility], [address] [place] [address]#### 2157-6 ####[facility] ([id number])5200 [place] [address] GAMMA GLOBULIN 0.6 g/dL Normal 0.5-1.6 [facility] Comment on above: Performed By: #### Jamal 34, 6969-0, 83738-6, 6968-2, [facility] [place], [address]-8 ####[facility] ([id number])2130 [facility], [address] [place] [address]#### 2157-6 ####[facility] ([id number])5200 [place] [address] PROT. ELECTROPHORESIS INTERP Unremarkable protein distribution, no monoclonal bands. Normal [facility] Comment on above: Performed By: #### Jamal 34, 6969-0, 11911-9, 6968-2, [facility] [place], [address]-7 ####[facility] LAB ([id number])2130 [facility], [address] [place] [address]#### 2157-6 ####[facility] LAB ([id number])5200 [place] [address] Protein [Mass/Vol] 5.4 g/dL Low 6.0-8.0 [facility] Comment on above: Performed By: #### C 34, 6969-0, 20611-0, 6968-2, [facility] [place] [facility] [place], [address]-1 ####[facility] ([id number])2130 [facility], [address] [place] [address]#### 2157-6 ####[facility] MAIN LAB ([id number])5200 [place] [address] Sodium, urine, randomon 10-0 Sodium (U) [Moles/Vol] 43 mmol/L [facility] Sodium (U) [Moles/Vol] 53 mmol/L [facility] URINALYSISon 12-03-2023 Bilirubin Ql (U) Negative Normal NEG [facility] Comment on above: Performed By: #### U PCR, UA, 2955-3 ####[facility] MAIN LAB ([id number])5200 [place] [address] BLOOD/HGB Negative Normal NEG [facility] Comment on above: Performed By: #### U PCR, UA, 2955-3 ####[facility] MAIN LAB ([id number])5200 [place] [address] Color (U) YELLOW Normal YELLOW [facility] Comment on above: Performed By: #### U PCR, UA, 2955-3 ####[facility] LAB ([id number])5200 [place] [address] Glucose Ql (U) Negative Normal NEG [facility] Comment on above: Performed By: #### U PCR, UA, 2955-3 ####[facility] MAIN LAB ([id number])5200 [place] [address] Ketones Ql (U) Negative Normal NEG [facility] Comment on above: Performed By: #### U PCR, UA, 2955-3 ####[facility] MAIN LAB ([id number])5200 [place] [address] Leukocyte esterase Test strip Ql (U) Negative Normal NEG [facility] Comment on above: Performed By: #### U PCR, UA, 2955-3 ####[facility] MAIN LAB ([id number])5200 [place] [address] Nitrite Ql (U) Negative Normal NEG [facility] Comment on above: Performed By: #### U PCR, UA, 295-3 ####[facility] LAB ([id number])5200 [place] [address] pH (U) 6.0 [pH] Normal 5.0-8.5 [facility] Comment on above: Performed By: #### U PCR, UA, 295-3 ####[facility] MAIN LAB ([id number])5200 [place] [address] Protein Ql (U) Negative Normal NEG [facility] Comment on above: Performed By: #### U PCR, UA, 2954-3 ####[facility] LAB ([id number])5200 [place] [address] Specific gravity (U) [Rel density] 1.010 Normal 1.003-1.035 [facility] Comment on above: Performed By: #### U PCR, UA, 2954-3 ####[facility] LAB ([id number])5200 [place] [address] TURBIDITY CLEAR Normal CLEAR [facility] Comment on above: Performed By: #### U PCR, UA, 295-3 ####[facility] LAB ([id number])5200 [place] [address] Urobilinogen Qn (U) 0.2 {Ansley'U}/dL Normal <1.1 [facility] Comment on above: Performed By: #### U PCR, UA, 295-3 ####[facility] MAIN LAB ([id number])5200 [place] [address] URINE SODIUM,RANDOMon 2023 Sodium (U) [Moles/Vol] 43 mmol/L Normal [facility] Comment on above: Performed By: #### U PCR, UA, 2955-3 ####[facility] MAIN LAB ([id number])5200 [place] [address] Urinalysison 12-03-2023 Bilirubin Ql (U) Negative Negative^Ne g ative [facility] Color (U) YELLOW YELLOW^YELLO W [facility] Glucose (U) [Mass/Vol] Negative Negative^Neg ative mg/dL [facility] Hemoglobin Auto test strip Ql (U) Negative Negative^Neg ative [facility] Ketones (U) [Mass/Vol] Negative Negative^Neg ative mg/dL [facility] Leukocyte esterase Auto test strip Ql (U) Negative Negative^Neg ative [facility] Nitrite Auto test strip Ql (U) Negative Negative^Neg ative [facility] pH (U) 6.0 [pH] 5.0 - 8.5 [facility] Protein (U) [Mass/Vol] Negative Negative^Neg ative mg/dL [facility] Specific gravity Refractometry automated (U) [Rel density] 1.010 1.003 - 1.035 [facility] Turbidity Ql (U) CLEAR CLEAR^CLEAR [facility] Urobilinogen Qn (U) 0.2 NINF [facility] Bilirubin Ql (U) Negative Negative^Ne g ative [facility] Color (U) YELLOW YELLOW^YELLO W [facility] Epithelial cells Auto (Urine sed) [#/Area] 4 [facility] Glucose (U) [Mass/Vol] Negative Negative^Neg ative mg/dL [facility] Hemoglobin Auto test strip Ql (U) Negative Negative^Neg ative [facility] Interpretation and review of laboratory results Abnormal [facility] Ketones (U) [Mass/Vol] Negative Negative^Neg ative mg/dL [facility] Leukocyte esterase Auto test strip Ql (U) SMALL Abnormal Negative^Neg ative [facility] Nitrite Auto test strip Ql (U) Negative Negative^Neg ative [facility] pH (U) 6.0 [pH] 5.0 - 8.5 [facility] Protein (U) [Mass/Vol] Negative Negative^Neg ative mg/dL [facility] RBC Auto (Urine sed) [#/Area] 0 [facility] Specific gravity Refractometry automated (U) [Rel density] 1.010 1.003 - 1.035 [facility] Turbidity Ql (U) CLEAR CLEAR^CLEAR [facility] Urobilinogen Qn (U) 0.2 N[facility] WBC Auto (Urine sed) [#/Area] 7 High [facility] Urine Creatinine,randomon Creatinine (U) [Mass/Vol] 56.74 mg/dL [facility] Vancomycin [Mass/Vol]on VANCOMYCIN 34.7 ug/mL Normal 5.0-40.0 [facility] Comment on above: Result Comment: Peak 30-40 ug/mLTrough 5-20 ug/ml Performed By: #### C MP, CBC, 61754-3, 84041-4, DIFFA ####[facility] MAIN LAB ([id number])[address] [place] [address] Vancomycin, randomon 024 Vancomycin [Mass/Vol] 34.7 ug/mL 5.0 - 40.0 ug/mL [facility] Comment on above: Peak 30-40 ug/mL Trough 5-20 ug/ml aPTT Coag (PPP) [Time]on [facility] BLOOD CULTUREon 12-02-2023 Bacteria identified Aer cx Nom (Bld) SPECIMEN NOTES SUBOPTIMAL VOLUME OF BLOOD COLLECTED, RESULTS MAY BE AFFECTED. CULTURE RESULTS NO GROWTH 5 DAYS Normal [facility] Comment on above: Performed By: #### 1 7928-3 ####[facility] LAB ([id number])2130 [facility], [address] [place] [address] Bacteria identified Aer cx Nom (Bld) SPECIMEN NOTES SUBOPTIMAL VOLUME OF BLOOD COLLECTED, RESULTS MAY BE AFFECTED. CULTURE RESULTS NO GROWTH 5 DAYS Normal [facility] Comment on above: Performed By: #### 1 7928-3 ####[facility] LAB ([id number])2130 [facility], [address] [place] [address] CBC AND AUTO DIFFon 12-02-19 24 ABSOLUTE BASOPHIL 0.0 X10E9/L Normal 0.0-0.2 [facility] Comment on above: Performed By: #### C LUCIA, 57135-0, 38003-0, CMP ####[facility] LAB ([id number])5200 [place] [address] ABSOLUTE NEUTROPHIL 6.3 X10E9/L Normal 1.5-6.6 [facility] Comment on above: Performed By: #### C LUCIA, 35653-6, 50404-8, CMP ####[facility] LAB ([id number])5200 [place] [address] Basophils/100 WBC (Bld) 0.3 % Normal [facility] Comment on above: Performed By: #### C LUCIA, 98390-6, 53324-8, CMP ####[facility] LAB ([id number])5200 [place] [address] Eosinophils (Bld) [#/Vol] 0.4 10*3/uL Normal 0.0-0.4 [facility] Comment on above: Performed By: #### C LUCIA, 07772-0, 65259-0, CMP ####[facility] LAB ([id number])5200 [place] [address] Eosinophils/100 WBC (Bld) 5.1 % Normal [facility] Comment on above: Performed By: #### C LUCIA, 67609-7, 52565-3, CMP ####[facility] LAB ([id number])5200 [place] [address] Erythrocyte distribution width (RBC) [Ratio] 14.2 % Normal 11.5-15.0 [facility] Comment on above: Performed By: #### C LUCIA, 45352-8, 72588-6, CMP ####[facility] MAIN LAB ([id number])5200 [facility] [place] [address] Hematocrit (Bld) [Volume fraction] 26.0 % Low 35-47 [facility] Comment on above: Performed By: #### C LUCIA, 75601-3, 88164-1, CMP ####[facility] MAIN LAB ([id number])5200 [facility] [place] [address] Hemoglobin (Bld) [Mass/Vol] 9.1 g/dL Low 11.7-15.5 [facility] Comment on above: Performed By: #### C LUCIA, 26498-1, 33885-8, CMP ####[facility] LAB ([id number])5200 [facility] [place] [address] Lymphocytes (Bld) [#/Vol] 0.5 10*3/uL Low 1.0-3.5 [facility] Comment on above: Performed By: #### C LUCIA, 16814-7, 97980-3, CMP ####[facility] LAB ([id number])5200 [place] [address] Lymphocytes/100 WBC (Bld) 6.7 % Normal [facility] Comment on above: Performed By: #### Jamal MYERS, 65719-7, 46964-4, CMP ####[facility] LAB ([id number])5200 [facility] [address] MCH (RBC) [Entitic mass] 31.6 pg Normal 27-34 [facility] Comment on above: Performed By: #### C BCA, 69815-2, 22023-0, CMP ####[facility] LAB ([id number])5200 [place] [address] MCHC (RBC) [Mass/Vol] 35.1 g/dL Normal 32-36 [facility] Comment on above: Performed By: #### Jamal BCA, 56614-0, 56136-9, CMP ####[facility] MAIN LAB ([id number])5200 [place] [address] MCV (RBC) [Entitic vol] 90 fL Normal 80-100 [facility] Comment on above: Performed By: #### Jamal MYERS, 74166-4, 10580-0, CMP ####[facility] MAIN LAB ([id number])5200 [place] [address] Monocytes (Bld) [#/Vol] 0.6 10*3/uL Normal 0-0.9 [facility] Comment on above: Performed By: #### Jamal MYERS, 93030-1, 81618-3, CMP ####[facility] LAB ([id number])5[address] [place] [address] Monocytes/100 WBC (Bld) 7.5 % Normal [facility] Comment on above: Performed By: #### Jamal MYERS, 29236-1, , CMP ####[facility] LAB ([id number])5200 [facility] [place] [address] Neutrophils/100 WBC (Bld) 80.4 % Normal [facility] Comment on above: Performed By: #### Jamal MYERS, 41463-4, 99021-9, CMP ####[facility] LAB ([id number])5200 [place] [address] Platelet mean volume (Bld) [Entitic vol] 6.7 fL Low 7-12 [facility] Comment on above: Performed By: #### Jamal MYERS, 88788-0, 51221-0, CMP ####[facility] LAB ([id number])5200 [place] [address] Platelets (Bld) [#/Vol] 279 10*3/uL Normal 150-450 [facility] Comment on above: Performed By: #### Jamal MYERS, 95570-8, 70220-6, CMP ####[facility] MAIN LAB ([id number])5200 [place] [address] RBC COUNT 2.89 X10E12/L Low 3.80-5.20 [facility] Comment on above: Performed By: #### C BCA, 94551-9, 69816-9, CMP ####[facility] MAIN LAB ([id number])5200 [place] [address] WBC (Bld) [#/Vol] 7.8 10*3/uL Normal 4.0-11.0 [facility] Comment on above: Performed By: #### C BCA, 33287-3, 04902-8, CMP ####[facility] MAIN LAB ([id number])5200 [place] [address] CBC auto differentialon 10-0 Basophils (Bld) [#/Vol] 0.0 10*3/uL [facility] Basophils/100 WBC (Bld) 0.3 % [facility] Eosinophils (Bld) [#/Vol] 0.4 10*3/uL [facility] Eosinophils/100 WBC (Bld) 5.1 % [facility] Erythrocyte distribution width (RBC) [Ratio] 14.2 % 11.5 - 15.0 % [facility] Hematocrit (Bld) [Volume fraction] 26.0 % Low 35 - 47 % [facility] Hemoglobin (Bld) [Mass/Vol] 9.1 g/dL Low 11.7 - 15.5 g/dL [facility] Interpretation and review of laboratory results Abnormal [facility] Lymphocytes (Bld) [#/Vol] 0.5 10*3/uL Low [facility] Lymphocytes/100 WBC (Bld) 6.7 % [facility] MCH (RBC) [Entitic mass] 31.6 pg 27 - [address] [facility] MCHC (RBC) [Mass/Vol] 35.1 g/dL 32 - 36 g/dL P [facility] MCV (RBC) [Entitic vol] 90 fL 80 - 100 fL [facility] Monocytes (Bld) [#/Vol] 0.6 10*3/uL [facility] Monocytes/100 WBC (Bld) 7.5 % [facility] Neutrophils (Bld) [#/Vol] 6.3 10*3/uL [facility] Neutrophils/100 WBC (Bld) 80.4 % [facility] Platelet mean volume (Bld) [Entitic vol] 6.7 fL Low 7 - 12 fL [facility] Platelets (Bld) [#/Vol] 279 10*3/uL [facility] RBC (Bld) [#/Vol] 2.89 10*6/uL [facility] WBC corrected for nucl RBC Auto (Bld) [#/Vol] 7.8 [facility] COMPREHENSIVE METABOLIC PANE [place] 12-02-2023 Albumin [Mass/Vol] 3.8 g/dL Normal 3.2-5.3 [facility] Comment on above: Performed By: #### Jamal MYERS, 55537-3, 67415-0, CMP ####[facility] MA[facility] LAB ([id number])[address] [place] [address] ALP [Catalytic activity/Vol] 69 U/L Normal 39-130 [facility] Comment on above: Performed By: #### Jamal MYERS, 77523-1, 99781-0, CMP ####[facility] MAIN LAB ([id number])[address] [place] [address] ALT [Catalytic activity/Vol] 12 U/L Normal 0-31 [facility] Comment on above: Performed By: #### Jamal BCA, 56136-0, 22343-2, CMP ####[facility] MA[facility] LAB ([id number])[address] [place] [address] Anion gap [Moles/Vol] 9 mmol/L Normal 5-15 [facility] Comment on above: Performed By: #### C BCA, 04046-0, 51694-9, CMP ####[facility] MAIN LAB ([id number])[address] [place] [address] AST [Catalytic activity/Vol] 24 U/L Normal 0-41 [facility] Comment on above: Performed By: #### Jamal BCA, 75646-8, 66064-5, CMP ####[facility] MAIN LAB ([id number])[address] [place] [address] Bilirubin [Mass/Vol] 0.6 mg/dL Normal 0.3-1.2 [facility] Comment on above: Performed By: #### C BCA, 16454-8, 89530-8, CMP ####[facility] MAIN LAB ([id number])5[address] [place] [address] Calcium [Mass/Vol] 9.8 mg/dL Normal 8.5-10.5 [facility] Comment on above: Performed By: #### C BCA, 93943-0, 23524-0, CMP ####[facility] MAIN LAB ([id number])5[address] [place] [address] Chloride [Moles/Vol] 99 mmol/L Normal 98-109 [facility] Comment on above: Performed By: #### C BCA, 43527-5, 80227-6, CMP ####[facility] LAB ([id number])5200 [facility] [place] [address] CO2 [Moles/Vol] 25 mmol/L Normal 22-32 [facility] Comment on above: Performed By: #### C BCA, 70969-2, 43610-9, CMP ####[facility] LAB ([id number])5200 [facility] [place] [address] Creatinine [Mass/Vol] 2.52 mg/dL High 0.40-1.00 [facility] Comment on above: Result Comment: METH OD TRACEABLE TO IDMS STANDARD Performed By: #### C BCA, 31252-3, 73155-9, CMP ####[facility] MAIN LAB ([id number])5[address] [place] [address] GFR/1.73 sq M.predicted among non-blacks MDRD (S/P/Bld) [Vol rate/Area] 22 mL/min/{1.73_m2} Low >59 [facility] Comment on above: Result Comment: Repo rted eGFR is based on theCKD-EPI 2020 equation that doesnot use a race coefficient. Performed By: #### C BCA, 13056-5, 46830-6, CMP ####[facility] LAB ([id number])5[address] [place] [address] Glucose [Mass/Vol] 106 mg/dL High 65-99 [facility] Comment on above: Performed By: #### C BCA, 63869-4, 83746-6, CMP ####[facility] MAIN LAB ([id number])5[address] [place] [address] Potassium [Moles/Vol] 3.2 mmol/L Low 3.5-5.0 [facility] Comment on above: Performed By: #### C BCA, 39177-6, 35578-6, CMP ####[facility] LAB ([id number])5[address] [place] [address] Protein [Mass/Vol] 6.4 g/dL Normal 6.0-8.0 [facility] Comment on above: Performed By: #### C BCA, 41506-1, 29587-5, CMP ####[facility] MAIN LAB ([id number])5[address] [place] [address] Sodium [Moles/Vol] 133 mmol/L Low 134-146 [facility] Comment on above: Performed By: #### C BCA, 92842-7, 90314-7, CMP ####[facility] MAIN LAB ([id number])5[address] [place] [address] Urea nitrogen [Mass/Vol] 27 mg/dL High 5-23 [facility] Comment on above: Performed By: #### C BCA, 45797-7, 91973-3, CMP ####[facility] MAIN LAB ([id number])5[address] [place] [address] Comprehensive metabolic pane rome 12-02-2023 Albumin [Mass/Vol] 3.8 g/dL 3.2 - 5.3 g/dL [facility] ALP [Catalytic activity/Vol] 69 U/L 39 - 130 U/L [facility] ALT No additional P-5'-P [Catalytic activity/Vol] 12 U/L 0 - 31 U/L [facility] Anion gap [Moles/Vol] 9 mmol/L 5 - 15 mmol/L [facility] AST [Catalytic activity/Vol] 24 U/L 0 - 41 U/L [facility] Bilirubin [Mass/Vol] 0.6 mg/dL 0.3 - 1 .2 mg/dL [facility] Calcium [Mass/Vol] 9.8 mg/dL 8.5 - 10. 5 mg/dL [facility] Chloride [Moles/Vol] 99 mmol/L 98 - 10 9 mmol/L [facility] CO2 [Moles/Vol] 25 mmol/L 22 - 32 mmol/L [facility] Creatinine [Mass/Vol] 2.52 mg/dL High 0.40 - 1.00 mg/dL [facility] Comment on above: METHOD TRACEABLE TO [facility] STANDARD eGFR (CKD-EPI)non-race dependent 22 Low - PINF [facility] Comment on above: Reported eGFR is based on the CKD-EPI 2020 equation that does not use a race coefficient. Glucose [Mass/Vol] 106 mg/dL High 65 - 99 mg/dL [facility] Interpretation and review of laboratory results Abnormal [facility] Potassium [Moles/Vol] 3.2 mmol/L Low 3.5 - 5.0 mmol/L [facility] Protein [Mass/Vol] 6.4 g/dL 6.0 - 8.0 g/dL [facility] Sodium [Moles/Vol] 133 mmol/L Low 134 - 146 mmol/L [facility] Urea nitrogen [Mass/Vol] 27 mg/dL High 5 - 23 mg/dL [facility] Creatinine (U) [Mass/Vol]on 12-02-2023 URINE CREATININE,RDM 56.74 mg/dL Normal [facility] Comment on above: Performed By: #### 2 161-8, , 2955-3 ####[facility] MA[facility] LAB ([id number])5200 [place] [address] Lactate (P tayla) [Moles/Vol]o n 12-02-2023 [facility] LACTATE W/REFLEX 0.7 mmol/L Normal 0.4-2.0 [facility] Comment on above: Result Comment: Resu lt did not trigger repeat Lactate,re-order if needed. Performed By: #### C BCA, 76886-5, 21099-6, CMP ####[facility] MA[facility] LAB ([id number])5200 [place] [address] Lactate w/ Reflexon 12-02-19 24 Lactate (P tayla) [Moles/Vol] 0.7 mmol/L 0.4 - 2.0 mmol/L [facility] Comment on above: Result did not trigger repeat Lactate, re-order if needed. URINALYSISon 12-02-2023 Bilirubin Ql (U) Negative Normal NEG [facility] Comment on above: Performed By: #### 2 161-8, UA, 2955-3 ####[facility] MA[facility] LAB ([id number])5200 [place] [address] BLOOD/HGB Negative Normal NEG [facility] Comment on above: Performed By: #### 2 161-8, UA, 2955-3 ####[facility] MA[facility] LAB ([id number])5200 [place] [address] Color (U) YELLOW Normal YELLOW [facility] Comment on above: Performed By: #### 2 161-8, UA, 2955-3 ####[facility] MA[facility] LAB ([id number])5200 [place] [address] Glucose Ql (U) Negative Normal NEG [facility] Comment on above: Performed By: #### 2 161-8, UA, 2955-3 ####[facility] MA[facility] LAB ([id number])5[address] [place] [address] Ketones Ql (U) Negative Normal NEG [facility] Comment on above: Performed By: #### 2 161-8, UA, 2955-3 ####[facility] ([id number])[address] [place] [address] Leukocyte esterase Test strip Ql (U) SMALL Abnormal NEG [facility] Comment on above: Performed By: #### 2 161-8, UA, 2955-3 ####[facility] ([id number])[address] [place] [address] Nitrite Ql (U) Negative Normal NEG [facility] Comment on above: Performed By: #### 2 161-8, UA, 5-3 ####[facility] ([id number])5[address] [facility] [address] pH (U) 6.0 [pH] Normal 5.0-8.5 [facility] Comment on above: Performed By: #### 2 161-8, UA, 2954-3 ####[facility] ([id number])[address] [place] [address] Protein Ql (U) Negative Normal NEG [facility] Comment on above: Performed By: #### 2 161-8, UA, 2954-3 ####[facility] ([id number])[address] [place] [address] R.B.CELLS 0 /hpf Normal 0-5 [facility] Comment on above: Performed By: #### 2 161-8, UA, 2954-3 ####[facility] ([id number])[address] [place] [address] Specific gravity (U) [Rel density] 1.010 Normal 1.003-1.035 [facility] Comment on above: Performed By: #### 2 161-8, UA, 2954-3 ####[facility] ([id number])[address] [place] [address] SQUAMOUS EPITHELIUM 4 /hpf Normal 0-5 [facility] Comment on above: Performed By: #### 2 161-8, UA, 2954-3 ####[facility] ([id number])[address] [place] [address] TURBIDITY CLEAR Normal CLEAR [facility] Comment on above: Performed By: #### 2 161-8, UA, 5-3 ####[facility] ([id number])[address] [facility] [address] Urobilinogen Qn (U) 0.2 {[place]'U}/dL Normal <1.1 [facility] [facility] Comment on above: Performed By: #### 2 161-8, UA, 2955-3 ####[facility] ([id number])5[address] [facility] [address] W.B.CELLS 7 /hpf High 0-5 [facility] Comment on above: Performed By: #### 2 161-8, UA, 2955-3 ####[facility] ([id number])[address] [place] [address] URINE CULTUREon 12-02-2023 Bacteria identified Cx Nom (U) CULTURE RESULTS NO GROWTH AT <1000 CFU/mL Normal [facility] Comment on above: Performed By: #### 6 30-4 ####[facility] ([id number])[address] [facility], [place] [address] URINE SODIUM,RANDOMon 2023 Sodium (U) [Moles/Vol] 53 mmol/L Normal [facility] Comment on above: Performed By: #### 2 161-8, UA, 2955-3 ####[facility] ([id number])5[address] [place] [address] aPTT Coag (PPP) [Time]on aPTT Coag (Bld) [Time] 35 s Normal 26-37 [facility] Comment on above: Performed By: #### C BCA, 64629-7, 40174-9, CMP ####[facility] ([id number])5[address] [place] [address] BASIC METABOLIC PANLon 11-29 Anion gap [Moles/Vol] 8 mmol/L Normal 5-15 [facility] Comment on above: Performed By: #### B MP, CBCA ####[facility] ([id number])[address] [place] [address] Calcium [Mass/Vol] 9.6 mg/dL Normal 8.5-10.5 [facility] Comment on above: Performed By: #### B ADARSH, CBCA ####[facility] ([id number])[address] [facility] [place] [address] Chloride [Moles/Vol] 105 mmol/L Normal 98-109 [facility] Comment on above: Performed By: #### B MP, CBCA ####[facility] ([id number])[address] [facility] [place] [address] CO2 [Moles/Vol] 29 mmol/L Normal 22-32 [facility] Comment on above: Performed By: #### B ADARSH, CBCA ####[facility] ([id number])[address] [facility] [place] [address] Creatinine [Mass/Vol] 0.62 mg/dL Normal 0.40-1.00 [facility] Comment on above: Result Comment: METH OD TRACEABLE TO IDMS STANDARD Performed By: #### B ADARSH, CBCA ####[facility] ([id number])5[address] [facility] [place] [address] eGFR (CKD-EPI) NON-RACE DEPENDENT >90 Normal >59 [facility] Comment on above: Result Comment: Repo rted eGFR is based on theCKD-EPI 2020 equation that doesnot use a race coefficient. Performed By: #### B ADARSH, CBCA ####[facility] ([id number])5[address] [facility] [place] [address] Glucose [Mass/Vol] 84 mg/dL Normal 65-99 [facility] Comment on above: Performed By: #### B ADARSH, CBCA ####[facility] ([id number])[address] [facility] [place] [address] Potassium [Moles/Vol] 3.3 mmol/L Low 3.5-5.0 [facility] Comment on above: Performed By: #### B ADARSH, CBCA ####[facility] ([id number])[address] [facility] [place] [address] Sodium [Moles/Vol] 142 mmol/L Normal 134-146 [facility] Comment on above: Performed By: #### B MP, CBCA ####[facility] ([id number])[address] [place] [address] Urea nitrogen [Mass/Vol] 9 mg/dL Normal 5-23 [facility] Comment on above: Performed By: #### B MP, CBCA ####[facility] ([id number])[address] [place] [address] CBC AND AUTO DIFFon 11-30-19 24 ABSOLUTE BASOPHIL 0.1 X10E9/L Normal 0.0-0.2 [facility] Comment on above: Performed By: #### B MP, CBCA ####[facility] ([id number])[address] [place] [address] ABSOLUTE NEUTROPHIL 4.2 X10E9/L Normal 1.5-6.6 [facility] Comment on above: Performed By: #### B MP, CBCA ####[facility] ([id number])[address] [place] [address] Basophils/100 WBC (Bld) 0.8 % Normal [facility] Comment on above: Performed By: #### B MP, CBCA ####[facility] ([id number])[address] [place] [address] Eosinophils (Bld) [#/Vol] 0.4 10*3/uL Normal 0.0-0.4 [facility] Comment on above: Performed By: #### B MP, CBCA ####[facility] ([id number])[address] [place] [address] Eosinophils/100 WBC (Bld) 6.4 % Normal [facility] Comment on above: Performed By: #### B MP, CBCA ####[facility] ([id number])[address] [place] [address] Erythrocyte distribution width (RBC) [Ratio] 13.9 % Normal 11.5-15.0 [facility] Comment on above: Performed By: #### B MP, CBCA ####[facility] ([id number])[address] [place] [address] Hematocrit (Bld) [Volume fraction] 25.2 % Low 35-47 [facility] Comment on above: Performed By: #### B MP, CBCA ####[facility] ([id number])[address] [place] [address] Hemoglobin (Bld) [Mass/Vol] 8.8 g/dL Low 11.7-15.5 [facility] Comment on above: Performed By: #### B MP, CBCA ####[facility] ([id number])[address] [place] [address] Lymphocytes (Bld) [#/Vol] 1.2 10*3/uL Normal 1.0-3.5 [facility] Comment on above: Performed By: #### B MP, CBCA ####[facility] ([id number])[address] [place] [address] Lymphocytes/100 WBC (Bld) 19.2 % Normal [facility] Comment on above: Performed By: #### B MP, CBCA ####[facility] ([id number])[address] [place] [address] MCH (RBC) [Entitic mass] 31.6 pg Normal 27-34 [facility] Comment on above: Performed By: #### B MP, CBCA ####[facility] ([id number])[address] [place] [address] MCHC (RBC) [Mass/Vol] 35.0 g/dL Normal 32-36 [facility] Comment on above: Performed By: #### B MP, CBCA ####[facility] ([id number])[address] [place] [address] MCV (RBC) [Entitic vol] 90 fL Normal 80-100 [facility] Comment on above: Performed By: #### B MP, CBCA ####[facility] ([id number])5[address] [facility] [place] [address] Monocytes (Bld) [#/Vol] 0.5 10*3/uL Normal 0-0.9 [facility] Comment on above: Performed By: #### B MP, CBCA ####[facility] ([id number])[address] [facility] [place] [address] Monocytes/100 WBC (Bld) 8.4 % Normal [facility] Comment on above: Performed By: #### B MP, CBCA ####[facility] ([id number])[address] [place] [address] Neutrophils/100 WBC (Bld) 65.2 % Normal [facility] Comment on above: Performed By: #### B MP, CBCA ####[facility] ([id number])5[address] [facility] [place] [address] Platelet mean volume (Bld) [Entitic vol] 6.8 fL Low 7-12 [facility] Comment on above: Performed By: #### B MP, CBCA ####[facility] ([id number])5[address] [facility] [place] [address] Platelets (Bld) [#/Vol] 294 10*3/uL Normal 150-450 [facility] Comment on above: Performed By: #### B MP, CBCA ####[facility] ([id number])5[address] [facility] [place] [address] RBC COUNT 2.80 X10E12/L Low 3.80-5.20 [facility] Comment on above: Performed By: #### B MP, CBCA ####[facility] ([id number])5[address] [facility] [place] [address] WBC (Bld) [#/Vol] 6.5 10*3/uL Normal 4.0-11.0 [facility] Comment on above: Performed By: #### B MP, CBCA ####[facility] ([id number])[address] [place] [address] CK [Catalytic activity/Vol]o n 11-28-2023 CPK 45 U/L Normal 24-170 [facility] Comment on above: Performed By: #### 2 157-6 ####[facility] ([id number])[address] [place] [address] AFB CULTURE(CONCENTRATED)on 11-27-2023 Mycobacterium sp identified Org specific cx Nom (Unsp spec) SPECIMEN NOTES SPECIMEN A AFB SMEAR NO ACID FAST BACILLI (CONCENTRATED SMEAR) 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 Normal [facility] Comment on above: Performed By: #### 5 43-9 ####[facility] ([id number])[address] [facility], [place] [address] ANAEROBE CULTUREon 4 Bacteria identified Anaer cx Nom (Unsp spec) SPECIMEN NOTES SPECIMEN A CULTURE RESULTS NO GROWTH 5 DAYS Normal [facility] Comment on above: Performed By: #### 6 35-3 ####[facility] ([id number])[address] [facility], [place] [address] ASPIRATE CULTUREon 4 Bacteria identified Aer cx Nom (Asp) SPECIMEN NOTES SPECIMEN A GRAM STAIN >25 WHITE BLOOD CELLS/LPF 0 SQUAMOUS EPITHELIAL CELLS/LPF NO ORGANISMS SEEN CULTURE 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 Normal [facility] Comment on above: Performed By: #### 5 97-5 ####[facility] ([id number])[address] [facility] [address] BASIC METABOLIC PANLon 11-26 Anion gap [Moles/Vol] 5 mmol/L Normal 5-15 [facility] Comment on above: Performed By: #### B MP, CBC, DIFFA ####[facility] ([id number])[address] [place] [address] Calcium [Mass/Vol] 9.5 mg/dL Normal 8.5-10.5 [facility] Comment on above: Performed By: #### B MP, CBC, DIFFA ####[facility] ([id number])[address] [facility] [place] [address] Chloride [Moles/Vol] 105 mmol/L Normal 98-109 [facility] Comment on above: Performed By: #### B MP, CBC, DIFFA ####[facility] ([id number])[address] [place] [address] CO2 [Moles/Vol] 30 mmol/L Normal 22-32 [facility] Comment on above: Performed By: #### B MP, CBC, DIFFA ####[facility] ([id number])[address] [place] [address] Creatinine [Mass/Vol] 0.71 mg/dL Normal 0.40-1.00 [facility] Comment on above: Result Comment: METH OD TRACEABLE TO IDMS STANDARD Performed By: #### B MP, CBC, DIFFA ####[facility] ([id number])[address] [place] [address] eGFR (CKD-EPI) NON-RACE DEPENDENT >90 Normal >59 [facility] Comment on above: Result Comment: Repo rted eGFR is based on theCKD-EPI 2020 equation that doesnot use a race coefficient. Performed By: #### B MP, CBC, DIFFA ####[facility] ([id number])[address] [place] [address] Glucose [Mass/Vol] 101 mg/dL High 65-99 [facility] Comment on above: Performed By: #### B MP, CBC, DIFFA ####[facility] ([id number])[address] [place] [address] Potassium [Moles/Vol] 3.8 mmol/L Normal 3.5-5.0 [facility] Comment on above: Performed By: #### B MP, CBC, DIFFA ####[facility] ([id number])[address] [place] [address] Sodium [Moles/Vol] 140 mmol/L Normal 134-146 [facility] Comment on above: Performed By: #### B MP, CBC, DIFFA ####[facility] ([id number])[address] [facility] [place] [address] Urea nitrogen [Mass/Vol] 16 mg/dL Normal 5-23 [facility] Comment on above: Performed By: #### B MP, CBC, DIFFA ####[facility] ([id number])5[address] [facility] [place] [address] COMPLETE BLOOD COUNTon 11-26 Erythrocyte distribution width (RBC) [Ratio] 13.6 % Normal 11.5-15.0 [facility] Comment on above: Performed By: #### B MP, CBC, DIFFA ####[facility] ([id number])[address] [place] [address] Hematocrit (Bld) [Volume fraction] 24.9 % Low 35-47 [facility] Comment on above: Performed By: #### B MP, CBC, DIFFA ####[facility] ([id number])[address] [place] [address] Hemoglobin (Bld) [Mass/Vol] 8.7 g/dL Low 11.7-15.5 [facility] Comment on above: Performed By: #### B MP, CBC, DIFFA ####[facility] ([id number])[address] [place] [address] MCH (RBC) [Entitic mass] 31.5 pg Normal 27-34 [facility] Comment on above: Performed By: #### B MP, CBC, DIFFA ####[facility] ([id number])[address] [place] [address] MCHC (RBC) [Mass/Vol] 34.7 g/dL Normal 32-36 [facility] Comment on above: Performed By: #### B MP, CBC, DIFFA ####[facility] ([id number])[address] [place] [address] MCV (RBC) [Entitic vol] 91 fL Normal 80-100 [facility] Comment on above: Performed By: #### B MP, CBC, DIFFA ####[facility] ([id number])5[address] [place] [address] Platelet mean volume (Bld) [Entitic vol] 6.6 fL Low 7-12 [facility] Comment on above: Performed By: #### B MP, CBC, DIFFA ####[facility] ([id number])5[address] [place] [address] Platelets (Bld) [#/Vol] 267 10*3/uL Normal 150-450 [facility] Comment on above: Performed By: #### B MP, CBC, DIFFA ####[facility] ([id number])[address] [place] [address] RBC COUNT 2.75 X10E12/L Low 3.80-5.20 [facility] Comment on above: Performed By: #### B MP, CBC, DIFFA ####[facility] ([id number])[address] [place] [address] WBC (Bld) [#/Vol] 6.2 10*3/uL Normal 4.0-11.0 [facility] Comment on above: Performed By: #### B MP, CBC, DIFFA ####[facility] ([id number])5[address] [place] [address] DIFFERENTIALon 11-27-2023 ABSOLUTE BASOPHIL 0.0 X10E9/L Normal 0.0-0.2 [facility] Comment on above: Performed By: #### B MP, CBC, DIFFA ####[facility] ([id number])[address] [place] [address] ABSOLUTE NEUTROPHIL 3.9 X10E9/L Normal 1.5-6.6 [facility] Comment on above: Performed By: #### B MP, CBC, DIFFA ####[facility] ([id number])[address] [place] [address] Basophils/100 WBC (Bld) 0.5 % Normal [facility] Comment on above: Performed By: #### B MP, CBC, DIFFA ####[facility] ([id number])[address] [facility] [place] [address] Eosinophils (Bld) [#/Vol] 0.6 10*3/uL High 0.0-0.4 [facility] Comment on above: Performed By: #### B MP, CBC, DIFFA ####[facility] ([id number])[address] [place] [address] Eosinophils/100 WBC (Bld) 9.2 % Normal [facility] Comment on above: Performed By: #### B MP, CBC, DIFFA ####[facility] ([id number])[address] [place] [address] Lymphocytes (Bld) [#/Vol] 1.1 10*3/uL Normal 1.0-3.5 [facility] Comment on above: Performed By: #### B MP, CBC, DIFFA ####[facility] ([id number])[address] [place] [address] Lymphocytes/100 WBC (Bld) 17.3 % Normal [facility] Comment on above: Performed By: #### B MP, CBC, DIFFA ####[facility] ([id number])[address] [place] [address] Monocytes (Bld) [#/Vol] 0.6 10*3/uL Normal 0-0.9 [facility] Comment on above: Performed By: #### B MP, CBC, DIFFA ####[facility] ([id number])[address] [place] [address] Monocytes/100 WBC (Bld) 9.7 % Normal [facility] Comment on above: Performed By: #### B MP, CBC, DIFFA ####[facility] ([id number])[address] [place] [address] Neutrophils/100 WBC (Bld) 63.3 % Normal [facility] Comment on above: Performed By: #### B MP, CBC, DIFFA ####[facility] ([id number])5[address] [facility] [place] [address] FUNGAL CULTUREon 11-27-2023 Fungus identified Cx Nom (Unsp spec) SPECIMEN NOTES SPECIMEN A FUNGAL SMEAR NO FUNGAL ELEMENTS SEEN ON DIRECT SMEAR CULTURE RESULTS NO FUNGUS ISOLATED AFTER 4 WEEKS Normal [facility] Comment on above: Performed By: #### 5 80-1 ####[facility] ([id number])[address], [place] [address] MRSA PCR NASALon 11-27-2023 MRSA DNA KYLE+probe Ql (Unsp spec) Negative Normal NEG [facility] Comment on above: Performed By: #### 3 5492-8 ####[facility] ([id number])[address], [place] [address] SEND OUT TESTon 11-27-2023 SENT TO [facility] [place] Normal [facility] Comment on above: Result Comment: [id number] SPECIMEN LJ SLANT FROM LEFT BREAST ASPIRATE SPECIMEN A Normal [facility] TEST NAME: [facility] APPR O SUSCEPTIBILITY Normal [facility] TEST RESULT See separate report. View in OnBase or in EPIC. Normal [facility] BASIC METABOLIC PANLon 11-25 Anion gap [Moles/Vol] 8 mmol/L Normal 5-15 [facility] Comment on above: Performed By: #### 3 2133-1, BMP, 74650-3, 1987- ####[facility] ([id number])[address] [place] [address]#### 61300-4 ####[facility] ([id number])[address], [place] [address] Calcium [Mass/Vol] 9.5 mg/dL Normal 8.5-10.5 [facility] Comment on above: Performed By: #### 3 1, [facility], 73691-3, 1987-07 ####[facility] ([id number])[address] [place] [address]#### 91125-1 ####[facility] ([id number])[address] [facility], [place] [address] Chloride [Moles/Vol] 102 mmol/L Normal 98-109 [facility] Comment on above: Performed By: #### 3 2132-1, [facility], 18705-5, 1987-07 ####[facility] ([id number])[address] [place] [address]#### 75594-7 ####[facility] ([id number])[address] [facility], [place] [address] CO2 [Moles/Vol] 29 mmol/L Normal 22-32 [facility] Comment on above: Performed By: #### 3 2132-03, [facility], 49745-0, 1987-07 ####[facility] ([id number])[address] [place] [address]#### 84056-2 ####[facility] ([id number])[address] [facility], [place] [address] Creatinine [Mass/Vol] 0.81 mg/dL Normal 0.40-1.00 [facility] Comment on above: Result Comment: METH OD TRACEABLE TO IDMS STANDARD Performed By: #### 3 2132-1, [facility], 65642-9, 1987-07 ####[facility] ([id number])[address] [place] [address]#### 08737-9 ####[facility] ([id number])[address] [facility], [place] [address] GFR/1.73 sq M.predicted among non-blacks MDRD (S/P/Bld) [Vol rate/Area] 87 mL/min/{1.73_m2} Normal >59 [facility] Comment on above: Result Comment: Repo rted eGFR is based on theCKD-EPI 2020 equation that doesnot use a race coefficient. Performed By: #### 3 2132-03, [facility], 09790-3, 1987-07 ####[facility] ([id number])[address] [place] [address]#### 35224-8 ####[facility] ([id number])[address] [facility], [place] [address] Glucose [Mass/Vol] 97 mg/dL Normal 65-99 [facility] Comment on above: Performed By: #### 3 2132-03, [facility], 20451-2, 1987-07 ####[facility] ([id number])[address] [place] [address]#### [id number] ####[facility] ([id number])[address] [facility], [address], [place] [address] Potassium [Moles/Vol] 3.0 mmol/L Low 3.5-5.0 [facility] Comment on above: Performed By: #### 3 2132-03, [facility], 02075-5, 1987-07 ####[facility] ([id number])5200 [place] [address]#### [id number] ####[facility] ([id number])[address] [facility], [address], [place] [address] Sodium [Moles/Vol] 139 mmol/L Normal 134-146 [facility] Comment on above: Performed By: #### 3 2132-03, [facility], 92504-7, 1987-07 ####[facility] ([id number])5200 [place] [address]#### [id number] ####[facility] ([id number])[address] [address] Urea nitrogen [Mass/Vol] 19 mg/dL Normal 5-23 [facility] Comment on above: Performed By: #### 3 2132-03, [facility], 17226-6, 1987-07 ####[facility] ([id number])5200 [place] [address]#### [id number] ####[facility] ([id number])2129 [facility], [address] [address] BLOOD CULTUREon 11-26-2023 Bacteria identified Aer cx Nom (Bld) CULTURE RESULTS NO GROWTH 5 DAYS Normal [facility] CRP [Mass/Vol]on 11-26-2023 C REACTIVE PROTEIN 2.6 mg/dL High 0.000-0.744 [facility] Comment on above: Performed By: #### 3 2132-03, [facility], 00572-1, 1987-07 ####[facility] ([id number])5200 [place] [address]#### [id number] ####[facility] ([id number])[address] [address] ESR Photometric method (Bld) [Velocity]on 11-26-2023 ESR, ERYTHROCYTE SEDIMENTATION RATE 30 mm/h Normal 0-30 [facility] Comment on above: Performed By: #### 3 2132-03, [facility], 19753-4, 1987-07 ####[facility] ([id number])5200 [place] [address]#### [id number] ####[facility] ([id number])[address] [address] Lactate (P tayla) [Moles/Vol]o n 11-26-2023 LACTATE W/REFLEX 0.7 mmol/L Normal 0.4-2.0 [facility] Comment on above: Result Comment: Resu lt did not trigger repeat Lactate,re-order if needed. Performed By: #### 3 3-1, [facility], 21267-6, 1987-07 ####[facility] ([id number])5200 [place] [address]#### [id number] ####[facility] ([id number])[address] [place] [address], [address] [place] [address] Procalcitonin IA [Mass/Vol]o n 11-26-2023 PROCALCITONIN <0.05 Normal <0.05 [facility] Comment on above: Result Comment: NOTE <0.50 ng/mL - Low risk of severe sepsis and/or septic shock.<2.00 ng/mL - Recommend retesting within 6-24 hours.>2.00 ng/mL - High risk of sepsis and/or septic shock. Performed By: #### 3 2132-, [facility], 56556-0, 1987-07 ####[facility] ([id number])[facility] [place] [address]#### 82082-5 ####[facility] ([id number])[address] [place] [address] [place] [address] ASPIRATE CULTUREon 4 Bacteria identified Aer cx Nom (Asp) GRAM STAIN >25 WHITE BLOOD CELLS/LPF 0 SQUAMOUS EPITHELIAL CELLS/LPF NO ORGANISMS SEEN CULTURE RESULTS FEW Mycobacterium Abscessus REPORT UPDATED GROWTH OBSERVED AT 3RD DAY FOR SUSCEPTIBILITY, SEE PREVIOUS REPORT. Normal [facility] Comment on above: Performed By: #### 5 [id number] ####[facility] ([id number])[facility], [address] [place] [address] Ambulatory Visit Summaryon 0 06-04-2023 Ambulatory Visit [...] choosing us for your care. Rizwan [facility] General Surgery Office/Clini c Noteon 06-04-2023 General Surgery Office/Clinic Note Chief Complaint post operative follow up HPI Staff 22 day post operative follow up post port insertion. Denies discomfort. no use of pain medication. Denies bleeding or drainage. Port has been accessed three times without incident. History of Present Illness s/p left subclavian xlnody-w-odqv insertion 3 weeks ago; doing well, mild [...] virus vaccine, inactivated 12/29/2012 Recorded Normal [facility] Comment on above: Result Comment: Elec [...] nodes on recent PET /CT (done at [facility]) PET report also described other foci of increased uptake in the subareolar right breast consistent with other foci of carcinoma images are NOT available for comparison and no size of these foci of uptake was provided. Comparison is made to exams dated: 03/06/2023 mammogram, 03/20/2023 mammogram, 03/20/2023 ultrasound, 03/26/2023 ultrasound biopsy, 03/20/2023 ultrasound biopsy, and 03/26/2023 mammogram - [facility]. CONTRAST VOLUME ADMINISTERED: 10 mL Gadavist intravenously. CONTRAST DISCARDED: 0 mL Gadavist TECHNICAL: All images are generated with the [employer]'s 1.5T MRI employing 8 channel dedicated breast coils (1mm slice thickness with a .2mm gap). This machine employs a specialized trasmit-receive coil. Three-dimensional, high resolution fat suppressed T1 weighted images were obtained prior to, immediately following, and after a delay relative to gadolinium contrast administration. A precontrast T2 weighted image was also acquired. 3D image and subtraction processing was performed using [employer] software. The images were interpreted using image [...] nodes on recent PET /CT (done at [facility]) PET report also described other foci of increased uptake in the subareolar right breast consistent with other foci of carcinoma images are NOT available for comparison and no size of these foci of uptake was provided. Comparison is made to exams dated: 03/06/2023 mammogram, 03/20/2023 mammogram, 03/20/2023 ultrasound, 03/26/2023 ultrasound biopsy, 03/20/2023 ultrasound biopsy, and 03/26/2023 mammogram - [facility]. CONTRAST VOLUME ADMINISTERED: 10 mL Gadavist intravenously. CONTRAST DISCARDED: 0 mL [employer] TECHNICAL: All images are generated with the [employer]'s 1.5T MRI employing 8 channel dedicated breast coils (1mm slice thickness with a .2mm gap). This machine employs a specialized trasmit-receive coil. Three-dimensional, high resolution fat suppressed T1 weighted images were obtained prior to, immediately following, and after a delay relative to gadolinium contrast administration. A precontrast T2 weighted image was also acquired. 3D image and subtraction processing was performed using [employer] software. The images were interpreted using image [...] MRI BI-RADS: 6: Known Biopsy Proven Malignancy [facility] Radiology Study observation (narrative) [facility] MR Breast - bilateral WO and W contrast IVOrdered By: Rosemary Gasca on 05-08-2023 [facility] Work Phone: CHEMISTRYOrdered By: [employer] SYSTEM on 04-06-2023 Anion gap [Moles/Vol] 10 [...] 023 CT Cardiac Scoring Normal [facility] 250 DO Work Phone: Office Visit (Cardiology)on 09-29-2022 Follow-up visit Diagnoses/Problems Assessed Hypertension (401.9) (I10) Edema (782.3) (R60.9) Class 1 obesity with body mass index (BMI) of 31.0 to 31.9 in adult (278.00,V85.31) (E66.9,Z68.31) Orders Class 1 obesity with body mass index (BMI) of 31.0 to 31.9 in adult Healthy Weight Tips; Status:Complete; Done: [id number] Edema, Hypertension Basic Metabolic Panel; Status:Active; Requested for:[id number]; CT Cardiac Scoring; Status:Active; Requested for:[id number]; Patient taking Metformin or Derivatives? : No [...] and no PND. Vitals Vital Signs Recorded: 30Mjg7375 02:29PM Heart Rate76, L Radial Zinmyygg104, LUE, Sitting Xmeigajtr88, LUE, Sitting Height5 ft 11 in Ulkloo866 lb BMI Trkzqlbwpr53.52 kg/m2 BSA Calculated2.22 Tobacco Useb) No PHQ-2 #1. Over the last 2 weeks have you felt down, depressed or hopeless? (If yes, answer PHQ-9 below)No PHQ-2 #2. Over the last 2 weeks have you felt little inter (more content not included)... Normal [employer] Tobacco Screening.on 023 Adult depression screening assessment No [facility] 250 DO Work Phone: Fall risk assessment c) Not medically indicated [facility] 250 DO Work Phone: Tobacco use status CP b) No [facility] 250 DO Work Phone: Tobacco Screening.on 023 Tobacco use status [facility] b) No [facility] 250 DO Work Phone: CHEMISTRYOrdered By: SYSTEM SYSTEM on 08-15-2022 Anion gap [Moles/Vol] 10 mmol/L Normal 6 - 16 mEq/L [facility] Remisol Calcium [Mass/Vol] 9.7 mg/dL Normal 8.9 - 11. 1 mg/dL [facility] Remisol Chloride [Moles/Vol] 102 mmol/L Normal 101 - 1 11 mmol/L [facility] Remisol Creatinine [Mass/Vol] 0.7 mg/dL Normal 0.5 - 1.3 mg/dL [facility] Remisol GFR/1.73 sq M.predicted among non-blacks MDRD (S/P/Bld) [Vol rate/Area] 105 mL/min/1.73 m2 Normal >=59mL/min/1 .73 m2 [facility] Chem S Glucose [Mass/Vol] 92 mg/dL Normal 55 - 199 mg/dL [facility] Remisol Potassium [Moles/Vol] 2.9 mmol/L Low 3.5 - 5.3 mmol/L [facility] Remisol Sodium [Moles/Vol] 138 mmol/L Normal 135 - 145 mmol/L [facility] Remisol Urea nitrogen [Mass/Vol] 15 mg/dL Normal 5 - 21 mg/dL [facility] Remisol Urea nitrogen/Creatinine [Mass ratio] 21 mg/mg High 10 - 20 [facility] Remisol Laboratory - Chemistry and C hemistry - challengeOrdered By: SYSTEM SYSTEM on 08-15-2022 CO2 [Moles/Vol] 29 mmol/L Normal 21-31 [facility] Niko yuliet Laboratory - Chemistry and C hemistry - challengeOrdered By: Sandrita Bettencourt on 08-15-2022 Natriuretic peptide B (Bld) [Mass/Vol] 23 pg/mL Normal 5-80 [facility] HemeManSS No Panel Informationon 08-15 105 {mL/min/1.73_m2} Normal >=59 [facility] [employer] 250 DO Work Phone: Comment on above: Chronic kidney disea se could be indicated at eGFR's of less than 60 mL/min/1.73m2. Kidney failure is indicated at less than 15 mL/min/1.73m2. 10 {mEq/L} Normal 6-16 [facility] [employer] 250 DO Work Phone: 102 mmol/L Normal 101-111 [facility] [employer] 250 DO Work Phone: 2.9 mmol/L below low threshold 3.5-5.3 [facility] [employer] DO Work Phone: 138 mmol/L Normal 135-145 [facility] [employer] DO Work Phone: 9.7 mg/dL Normal 8.9-11.1 [facility] [employer] DO Work Phone: 21 {No_Units} above high threshold 10-20 [facility] [employer] DO Work Phone: 0.7 mg/dL Normal 0.5-1.3 [facility] [employer] DO Work Phone: 15 mg/dL Normal 5-21 [facility] [employer] DO Work Phone: 92 mg/dL Normal 55-199 [facility] [employer] DO Work Phone: Comment on above: If this glucose resu lt represents a fasting glucose, interpretation should refer to the following reference range: 55-99 mg/dL Pass Normal [facility] [employer] DO Work Phone: Office Visit (Cardiology)on 07-21-2022 [...] IO EKG Electrocardiogram- 12 Lead; Status:Complete; Done: [id number] Hypertension Start: Chlorthalidone 25 MG Oral Tablet; TAKE 1 TABLET Daily Start: Lisinopril 20 MG Oral Tablet; TAKE 1 TABLET DAILY Start: Metoprolol Succinate ER 100 MG Oral Tablet Extended Release 24 Hour; Take 1 tablet daily SocHx: Never a smoker Tobacco Use Screening; Status:Complete; Done: [id number] Tobacco Use Screening; Status:Complete; Done: 04Bez7013 Unlinked Stop: Coreg 25 MG Oral Tablet [...] negative for complaint. Vitals Vital Signs Recorded: 29Snn3987 08:15AMRecorded: 58Zib6407 08:14AM Ypcvridz770, RUE, Cuiqphz068, LUE, Sitting Wzzhaxjxx09, RUE, Kqlponz58, LUE, Sitting Heart Rate59, Apical Height5 ft 11 in Awkrcc266 lb BMI Yxdathrleb69.82 kg/m2 BSA Calculated2.2 Tobacco Useb) No PHQ-2 [...] Neck: ne (more content not included)... Normal [employer] Tobacco Screening.on 023 Adult depression screening assessment No [facility] [employer] [facility] 250 DO Work Phone: Fall risk assessment a) No falls within the last year [facility] 250 DO Work Phone: Tobacco use status CP b) No [place] [address] DO Work Phone: PAP ACOG PANEL 2: 30 to 65on 01-03-2022 . . Normal [facility] Comment on above: Result Comment: Perf ormed at: WB Performed By: #### 4 [id number] #### [facility] [address] [place] [address] Dr. Daniel Mcgregor Age Gdln ACOG Testing 30-65 Normal [facility] Comment on above: Performed By: #### 4 [id number] #### [facility] [address] [address] [address] Daniel Mcgregor DIAGNOSIS: Comment Normal [facility] Comment on above: Result Comment: NEGA TIVE FOR INTRAEPITHELIAL LESION OR MALIGNANCY. Performed at: WB Performed By: #### 4 [id number] #### [facility] [address] [place] [address] Dr. Daniel Mcgregor HPV Aptima Negative Normal Negative [facility] Comment on above: Result Comment: This nucleic acid amplification test detects fourteen high-risk HPV types (16,18,31,33,35,39,45,51,52,56,58,59,66,68) without differentiation. Performed at: =G Performed By: #### 4 [id number] #### [facility] [address] [address] [address] Daniel Mcgregor HPV Genotype Reflex Comment Normal [facility] Comment on above: Result Comment: Crit eria not met, HPV Genotype not performed. Performed at: WB Performed By: #### 4 [id number] #### [facility] [address] [place] [address] Dr. Daniel Mcgregor Methodology: Comment [facility] Comment on above: Result Comment: This liquid based ThinPrep(R) pap test was screened with the use of an image guided system. Performed at: WB Performed By: #### 4 [id number] #### [facility] [address] [place] [address] Dr. Daniel Mcgregor Note: Comment Normal [facility] Comment on above: Result Comment: The Pap smear is a screening test designed to aid in the detection of premalignant and malignant conditions of the uterine cervix. It is not a diagnostic procedure and should not be used as the sole means of detecting cervical cancer. Both false-positive and false-negative reports do occur. . Performed at: WB Performed By: #### 4 [id number] #### [facility] [address] [address] [address] Daniel Mcgregor Performed by: Comment Normal [facility] Comment on above: Result Comment: Roxann Ambriz, Locker Attendant (ASCP) Performed at: WB Performed By: #### 4 [id number] #### [facility] [address] [address] [address] Daniel Mcgregor Specimen adequacy: Comment Normal [facility] Comment on above: Result Comment: Sati sfactory for evaluation. No endocervical component is identified. Performed at: WB Performed By: #### 4 [id number] #### [facility] [address] [place] [address] Dr. Daniel Mcgregor MG MAMM SCREEN 3D VONNIE CADon 12-13-2021 MG MAMM SCREEN 3D VONNIE CAD Patient: IKE FLANNERY Exam Date: 12/13/2021 : 1970 Gender:F Ordering : DR KAYE MANUEL Admission #: [id number] Family : DR DAYANA BASHIR . Order #: [id number] CLICK HERE TO VIEW EXAM RADIOLOGY REPORT [...] Treatments None Family Cancers None LOCATION: [facility] BREAST COMPOSITION: Heterogeneously dense,which may obscure small [...] MD on 12/13/2021 at 08:39 Normal [facility] COVID Quick Testingon 2021 Result Negative [employer] Other BASIC METABOLIC PANELon - BUN/CREATININE RATIO NOT APPLICABLE Normal 6-22 [facility] Comment on above: Performed By: #### 5 616, 52550, 98351 #### [facility] [address], [address] [place] [address] Tab Machine Operator: Heraclio Miller MD Calcium [Mass/Vol] 9.7 mg/dL Normal 8.6-10.4 [facility] Comment on above: Performed By: #### 5 616, 70659, 24819 #### [facility] [place] [address] Tab Machine Operator: Heraclio Miller MD Chloride [Moles/Vol] 103 mmol/L Normal 98-110 [facility] Comment on above: Performed By: #### 5 616, 72598, 08945 #### [facility] [place] [address] Tab Machine Operator: Heraclio Miller MD CO2 [Moles/Vol] 30 mmol/L Normal 20-32 [facility] Comment on above: Performed By: #### 5 616, 27741, 30144 #### [facility] [place] [address] Tab Machine Operator: Heraclio Miller MD Creatinine [Mass/Vol] 0.77 mg/dL Normal 0.50-1.[address] [facility] Comment on above: Performed By: #### 5 616, 52589, 92809 #### [facility] [address], [address] [place] [address] Tab Machine Operator: Heraclio Miller MD GFR/1.73 sq M.predicted among non-blacks MDRD (S/P/Bld) [Vol rate/Area] 94 mL/min/{1.73_m2} Normal > OR = 60 [facility] Comment on above: Result Comment: The eGFR is based on the CKD-EPI 2020 equation. To calculate the new eGFR from a previous Creatinine or Cystatin C result, go to https://www.kidney.org/professionals/ kdoqi/gfr%5Fcalculator Performed By: #### 5 616, 54402, 06010 #### [facility] [place] [address] Tab Machine Operator: Heraclio Miller MD Glucose [Mass/Vol] 91 mg/dL Normal 65-99 [facility] Comment on above: Result Comment: Fasting reference interval Performed By: #### 5 616, 45812, 46590 #### [facility] [place] [address] Tab Machine Operator: Heraclio Miller MD Potassium [Moles/Vol] 3.4 mmol/L Low 3.5-5.3 [facility] Comment on above: Performed By: #### 5 616, 05109, #### [facility] [place] [address] Tab Machine Operator: Heraclio Miller MD Sodium [Moles/Vol] 140 mmol/L Normal 135-146 [facility] Comment on above: Performed By: #### 5 616, 39542, #### [facility] [place] [address] Tab Machine Operator: Heraclio Miller MD Urea nitrogen [Mass/Vol] 11 mg/dL Normal 7-25 [facility] Comment on above: Performed By: #### 5 616, 10414, 19822 #### [facility] [place] [address] Tab Machine Operator: Heraclio Miller MD IRON, TIBC AND FERRITIN MARUE [place] 09-21-2021 % SATURATION 10 % (calc) Low 16-45 [facility] Comment on above: Order Comment: FASTI NG:YES FASTING: YES Performed By: #### 5 616, 53644, 68533 #### [facility] [address], [address] [place] [address] Tab Machine Operator: Heraclio Miller MD Ferritin [Mass/Vol] 11 ng/mL Low 16-232 [facility] Comment on above: Order Comment: FASTI NG:YES FASTING: YES Performed By: #### 5 616, 07767, 77646 #### [facility] [address], [address] [place] [address] Tab Machine Operator: Heraclio Miller MD IRON BINDING CAPACITY 542 mcg/dL (calc) High 250-450 [facility] Comment on above: Order Comment: FASTI NG:YES FASTING: YES Performed By: #### 5 616, 01495, 69642 #### [facility] [address], [address] [place] [address] Tab Machine Operator: Heraclio Miller MD IRON, TOTAL 54 mcg/dL Normal 45-160 [facility] Comment on above: Order Comment: FASTI NG:YES FASTING: YES Performed By: #### 5 616, 32758, 57709 #### [facility] [place] [address] Tab Machine Operator: Heraclio Miller MD TSH W/REFLEX TO FT4on 2021 TSH W/REFLEX TO FT4 3.86 mIU/L Normal [facility] Comment on above: Result Comment: Refe rence Range > or = 20 Years 0.40-4.50 Ranges First trimester 0.26-2.66 Second trimester 0.55-2.73 Third trimester 0.43-2.91 Performed By: #### 5 616, 68973, 27196 #### [facility] [place] [address] Tab Machine Operator: Heraclio Miller MD Consent Formson 09-09-2021 Consent Forms [id number]#[email or web address] [id number] [facility] Coding Summaryon 09-03-2021 Coding Summary HTMLBase 64 DxjugxlqYJd0xNt+PGhlYW Q+KM0KEDNsT80xxENncG6R I2dRGR1JJXDFDHXLJF6EQK 2zzOE4WWdjK7QpbcNv MpvkpJWiPJ70SPm4ECN9wZ rmGPrpkR5kzKSnT5o3VbMg JA86fO81BJtdZZRhUtN0Gf ZpbjsgbWFy Y9haSnZaoPZjZid+PHRhYm xlIHdpZHRoPScxMDAlJyBz mKptYU0pVo1oTTYwYIDxgI xhcHNlOiBj e4ijKTZwZWeoQE4npLmvC5 AxdVD1IUNqs5c4Av31wPQ+ IGIjFAZ7pAbhMFdnp310Ch Awi1mvANC0 dJYfOYhnWCB9E26bk5H0FD CmNDPnCUN0vWA7sW7ggWnt eiddL9OtvYIaQsR2JEL4xQ ZsfG0lfEco tlfknG8kSre+H38AKA6ZGG OKLE1WBll6I6BwAjennHH+ IP96YTKzRN85dXZcbLOpy5 gbuLh3RhKo NMGmGYX0fYxvDZfoc8ArFZ UvL36uuSWby9L5QZCmtEbo eTTaStYflPB6cS7hRThgad ovn4mumvjc Xryxy4xnot80qB03T51uZH auFTGnZBC9IZSoTAEtqLmm bi6vzV1dVy2+MEzkb2sid5 yjsAl7GbNf HBAgraNtuTdhSJX6h4VhRb 93F5VgdSrjf7FfBxv4ys98 vTPic8X0jSY2EIeaGMJlhK 2zLEggKxC6 ARNcDqCqqL49rCNqOKuaFt 3ijSohjMzmDV3eESRltzzz QBMogX9tPCYkrHSlpWxcWS 4wNTBpbjtm z143DmNkBTA3EUOosXXdU9 VzpA3nPwVkMWWpBBYfQ2Iy nETkEBuzF010UMltXkZ2SG ApwuXcX1Qd BJPatMgeQrP0l0H4Rn7Za4 UmtyzdXNZ1FWhvQTZ7PxA1 UqWlKkJ7A4DqKmq7QQVakI exDR7aV3Ge CYIdcvzfrpjnjDM6TUHxOG QslM61xIZjUYkbLs6jl4L2 t438DFMlYYEsjQ34Ox4wkH ogMTBwdCBU rO8ybanpm9meksvfJgUmMI IzBAa6LNy2USEknIvyZuOn TZR2XyP0NBE6tERtjG2hqZ wyxupkbU3u Oyc+K49myJ2zHYD6GHE0ka noCCRmstIfMR92OR80W2No PjwvdGFibGU+PGRpdiBzdH iuXD1cBaIe s4qwj3RpSRcmE4HjVMKfFY nmDam5OYZgQVJ9aYG4oW1a IUEcSKbqq4G1gLD8M4Qogm Vfqp5es2qv YKNwQRubG91dlWOni6E9CL XqgXS9RJRpbDizEjGdtL23 Oyc+JEGzgIqsg7WrAduwp9 enc0hhyRn3 OxCoGXObseOmtEqaASA2y5 UmXk02H02aCSeeEXZnEIHd FOGtFLQthQnosh3jqB1dOd 8+PGNvbCB3 rHT9oM8sDHOhAiI5XMwjZ6 85RkWfySDnHxosr7yhg9lc tKn2YaLrAPQpapSneQsuXC Z1x9BbEe16 J33mCIzqUQYcDCApYVVkDC OflKhjuy6bxS9xVl0+PC9j r7kgaz91jM53uZP+PHRkIH G3gXdrIQzc XPErqL6rWLwmVjK9PPYoDo WubY64qXJbDTduZa8ulSzw fDbgDC1iDRGdasxhp316Xw Tsq6qjGXLe qCIdFSmrNAO2T64zd8F0TN JeTSQlJSA8nAO5oF4thLkd bjogbGVmdDsgdmVydGljYW yfPJhmT447 IHRvcDsnPlBhdGllbnQgTm SpCUo9A1TjFji7IPJedKdu NJ5viFKqBHjcVj8paBcmmP atUP1oVQUx gnpzz182ZqCcv0zeLRFhfR YcTTnsLXA2L61bx9D0JFUq ITRlFYK1xRE4rL6rrUgsrx ogbGVmdDsg zyHlgZleNZwcFWgqJ159RU RvcDsnPkJpcnRoIERhdGU6 WP14DB77rBXab2B1nPX6D7 BhZGRpbmct asvkmSL0QXPxPEDprM04Om 6uzDbuAh5oOCFfYGN2IKTq eBNzK6EwmX8dJzIhJJDwQJ WoH7QapTPh HQzxT838KPfbBcC1VTOuva PzX5FyQZMugIlmWlM9p8M7 Us4KB3Q4EL47GU80oXNez2 F5qXY7X1Zy NSStkwycslcrwQM4PSKnAZ EftJ45Ik9gwUrtPi4bEBNo YYT2RJAlfVWsW9DwrK2kFv AjMDAwMDAw K8UinXEkGBzfJ455MKfgRn V0LFIcjpSkA0ErXBNfkMjq SoG7h6T4Bt1QGDb1ML23RF 64dUTsy8H4 uGV3V1OjMARwthjpvdsljA R6HNCgHLJhtT65Zq6cePgd Ao6tCDGsRWP1BFGrtVUkS5 NntW8xTlSj CSZuJDAeT1WnpWQfTJylB2 13HJaxHcM8OCKthdBuE6Tr WCCfkCpeBrI1r0X1Cj4VJR HsEY61ZYT2 iGS5KH92RV20N3FhFkkkmP FibGU+PHRhYmxlIHdpZHRo LBtoQDFbGpNaqJkzAA6nWq 9yZGVyLWNv wReqjGNzOsZta3icSUHpVV nuXI6wbZwxI5EouDO3QTVv i0c6Iw08J50bE7EjiZO+PG HxaSM9mKQ2 sG0fUtNuWjW1ZTrfS135Jq LufTKbSipjn6mkx9wmdNn7 KlE3XWVjalIcrKgxFVF7a6 DwNh81I37l IHdpZHRoPSIxNSUiIHZhbG kwrz5iiD1jQy2+PGNvbCB3 uIK2cD2oAzGsSnP5VOblA8 49InRvcCIv Flwdg2xci0xsxAk5GmUhOZ JhinBgdRuxPHG2d2ZaGb26 A9DfoNufh1PmBxw3rl11zU Zqe8Y0hDI2 J6RmXWJhuhipmOHjnPccYN 3oWKCwllzpRPCyqW9dOGBq Z8u8XrVcYlD7SBdtH8Beqi R8ISXkpECi TUpwEOD1V04br1J2QXRtNJ IsLHN7pKD3nO5pgDmlqjol bGVmdDsgdmVydGljYWwtYW zjV463OPMt qIciXEWroJ1lLLDdlVCicV vvZM7lICCegsvoAkmTXC0S TiwgRUxJWkFCRVRIIEFOTj wvdGQ+PHRk NUZ8xVseYXktTVYrzV0bTC YnB8s9LhUmBrB5EEntP0Xz MITyfmubLh02zX6jMlNcAz I3CMinQ8Dl zoR5WWDmeWVaQYimGSS7I9 0mg6N1BJIfBJVdWMR2wHQ2 zP8weUvrqvpxnCIloPaiut VydGljYWwt DMabG834BCCgsGegCuO0Gc TiYdW6SdK3F0WhWdq3QZOb gOxnIJ5etHGrKSmfKt2zaI simZfaSF5m SVDbjlmdRXOjwU5iMGDneV VgwFcgLU0oMUWqgofas656 FpDyITS4GMXumZMaW4CtnG 9yOiAjMDAw GYZbQ6BxiBUtGCklK262HZ eqQwJ1UMPmxtQcE4OjXVDx tEseXcS1l1K7Bm55RMFWBE FyczwvdGQ+ ITZdOVM8tQcoYBqrAHTmfN 7eGFFbB3p4GlVdOnJ5PIfg E3ZfJAEhiityKn57uD3kIy WtRuR6OKko Y5OyxhF5ZNUsxVZrDEpeMU H2D30ku1J6QJQiCQMeGHD1 eBG2cT1ixDjstgixpCIwxJ sgdmVydGlj MUsiAMvzA382WJXuuOymTp ZFTUFMRTwvdGQ+PHRkIHN0 xEttWXlzRRUmqI2vTGMgD9 m1EvUxLpI1 QFojE8ZrRMRxhmsdJy63mI 9mYkIfGhC6OSqcO4IammV5 LOAgxARyONjvJGH7P00cq5 G2AEIqCJYi MDT9eSA5eJ5qpOlbqhkxzT VmdDsgdmVydGljYWwtYWxp S125DWLdkIuxPmOmgOZQiY UjTOZ9GV14 KN85E7OhJovndBCttMC+PH RhYmxlIHdpZHRoPScxMDAl SgYedPovOW8mBz7hRVJcKK NvbGxhcHNl IhVym8egMEOxXHveWI3suJ qnH6VewGM8ZCObf2t6Qa53 I90bA2VxcSN+RUDneRS0vK M2gC8uYnYp ZnE0WJbfB405SwBrmOXvDb fvl8cam2pnbHw5WeMwBNOp teWljEsdOMN5p8UwAi85U1 9sIHdpZHRo WRVgXXQbAIDuvNovob4gqI 9wIi8+IEAjfOR0hQD4wP8t HaJzPsW6GKdsD074AhGqtR ObDqftV12v O8LgpQH+XIYwFeb4FXIfrJ biUW1yeDAdABubWt8cHVL6 KeScBoZeUYraW1XcRKLwnx ctcmlnaHQ6 VNGxIYBxjK91Nu2soEnlNc 6hVLMzNZJ0NYUcoDSoZ8Ds dI2eUhKyBNZyJADiD0UbaK KdAWtuU970 CYpiRsK8HWSbnpJjW8BgRS ZsdAwmVhZ3i1C7Rx2BtFkx dBAeXL0fLiNgEYh0K8PpBh e0YQCrfJmr UD9jbUHuCMqzCq0rsGifgZ evEV0hOORtkezde261HgFo r7hnKGFgzTJxTWtaFLP0I6 9zc2D7EDKk EHIdEAY2aJI8wM3aqMxtfo ogbGVmdDsgdmVydGljYWwt FLznD929FJLuxXxtVoOSGq g8D3UaSjo7 SUJstOcuXL3siMRrQJdiDw 2puSgjwZcsAW1gJUVigfue h884XfHgn7nuGDJxwWWaCN jcPAT2W79y f4O0KHVpYIQpPBG2iWQ3nA 1hbGlnbjogbGVmdDsgdmVy gWujQJzhEVjsA730PUMohO oyKk1EKum8 Z3HlMer1LJZbzPdcEM3unC NqSTawYn1oxGngeSieBG3v YJSqhnqab991XaMwo9tnYK EwcHQgVGlt MXE6L63mi8W1RQFmYWObYJ A7fAH2tD9otJrfmlxaeLEy dDsgdmVydGljYWwtYWxpZ2 46IHRvcDsn PlBheWVyOjwvdGQ+PC90cj 64K4WmGhraGxq0XXHsPEA8 vZP5sH6zHMRtUVxil9T7hH Y6G5DfcoKu ci1 (more content not included)... [facility] Coding Queryon 08-27-2021 Coding Query Documentation [...] Oglesby DO [Transcribed on: 08/27/2021 07:54 EDT] [facility] Consent Formson 08-27-2021 Consent Forms [id number]#[id number] [facility] Tele[facility] Strips [id number]#[id number] 0OTGTIFF [facility] Anesthesia Noteon 08-26-2021 Anesthesia Note Patient: [...] on: 08/26/2021 14:58 EDT] Shanon Cadet MD [facility] Anesthesia Note Patient: IKE FLANNERY Age: [...] = 1 tab(s), PO, Daily Potassium Chloride (Hid-Soyy-Nwl 10) 10 mEq oral tablet, extended release 10 mEq = 1 tab(s), PO, Daily traZODone 50 mg oral tablet 50 mg = 1 tab(s), PO, Once a day (at bedtime) Problem list (past medical history): All Problems Cardiac dysrhythmia / SNOMED CT 4455020083 / Confirmed HTN (hypertension) / SNOMED CT 8538972396 / Confirmed Histories Family History: No family history items have been selected or recorded. Procedure history: Arthroscopy of knee (314320741) on 01/21/2021 at 50 Years. Comments: 01/21/2021 8:41 Gino Pickering RN right Abdominal hysterectomy ([id number]). Arthroscopy of knee (058768889). Lipoma (437612767). Comments: 01/04/2021 11:19 OSKAR Becker RN, Milana A excision History of tonsillectomy (5445149464). ACL - Anterior cruciate ligament rupture (956759809). Comments: 08/12/2021 13:15 Gion Heller RN repair with spring Social History [...] Oriented. Review / Management Laboratory Results Plan [place] [employer]#(ASA ) physical status classification: Class II. Anesthetic Preoperative Plan Anesthesia: General. . Anesthetic plan, risks, benefits, and alternatives discussed with the patient and/or family. Patient verbalized understanding. Informed consent was given. Anesthetic technique: General anesthesia, Patient presented with diastolic HTN; this was also noted on her PST chart. Had a lengthy discussion with her regarding this. Her primary care ([facility]) recently changed her from Toprol to Coreg... Patient has reported no changes and has noted her diastolics have been above 100 for months . We discussed treating her with some labetolol here with the hope of moving forward today with her surgery. We also discussed putting a better wool supplier plan in place regarding her hypertension. Her and her both seemed to express understanding. . [Electronically Signed on: 08/26/2021 13:29 EDT] Shanon Cadet MD [Verified on: 08/26/2021 13:29 EDT] Shanon Cadet MD [facility] Coding Summaryon 08-26-2021 Coding Summary HTMLBase 64 RvdlyoivPIj2kBv+PGhlYW Q+BB4EUGRuK47akFNiuP1F I8pBNK4NPYIAQPQNLZ2QXX 9diLU7TWryH9NxncCu LqphhPTtAD58UCd6MWD2sY dhZXigsD2fzOSyW7t2IwHl RL34eN39OByfPLPxDrW5Pf ZpbjsgbWFy D1hmRuOqcJWxWbz+PHRhYm xlIHdpZHRoPScxMDAlJyBz fZrlYT3yCh1tWGOlOVOjbY xhcHNlOiBj z3hfJAHtBFmsZN0nfEwiZ5 WgyZU8WOBla0x4Zb26xML+ FCFkZAN3yJnjNBcte877Hw Zjx1dfBAL2 yPFxODjcJVQ4M33ho3N7PS MtCAYeVWC7wHC1vT9osXka ghxdC8YnkJYiThH5FTL4xS KguF3waPjh gjaviY6aHif+E87PYT4JPT ANDE3AMsw2L5BiFmpkjBJ+ OV88KROwYD92dXQusHXgg2 nbyNg7ZnEg UWMxNJW3gRpoRCjjh7BkKE ToX81llTYwd6Q9UFWawRas pORdEpDqiAM2zN2xYOfxim ugq0mevwqz Xnzcr6lvcs92nR69K65zKW woNKSgKMJ8QLMaDHFcyRux gg5rwL3rNw9+EHfbv5qss5 lbfLn3VkRl LKWqkxLghJryFIY0u9QrGk 33B2DayTors3GlBdu9bv74 nLSrp4J4kBD7EEwyOPYxkA 5xYPxkOhL6 HAIpSyTxnY55zZTxWYbpKz 5vqGujwGrbYZ2jJPMxwnmi EWSybF0sHOPbsSSopGkkIH 4wNTBpbjtm m868VcCxDKO5AJIrnMLyS6 UxxB1qIsBhXRMeKQVvB6Xd iNFyNAkrM600AFvdMyI1DE BigoSzU9Ey FGSfmIxrNtT6h2Q3Al2Wh0 QjglcgLGN8JTxtEBQ8JsP3 DeOwBpW7W5GlTaj3PAHypY hoKM5sM3Fi KMRbzgyyhxwieZY6WGHiQG GpxR19fZVhFWanQa9wt1H3 f083OCBrZMLvbE38Mh5ucJ ogMTBwdCBU mO9ltzxpm4tzzmnsPgIdGM ZuUCr7QJx5LYVleIwvEsBv NWO2SaK1PDI0rILbyE8jlU ufbgxkhD1j Oyc+Y35ypH0aMOR7VFT1il aeDZQkhrWkMT02FE96R5Nt PjwvdGFibGU+PGRpdiBzdH mnRO0uMnBq i4guu6MiJFxyV6BlHYFnOF vuFdo3GHWrKZM2kVA7yY7j QSHiSYsfj9H2yVH3B1Gaco Bzur1ts1xu EIRsZXqwI67hcEWen2E2UU SckPX5YFOkfMxyQdEbsU42 Oyc+CEFhbWict1MySgvpf3 bxr3zsiJj5 FqQvMGAcebJbbRnmOSC4q4 CuZi48I36lZEvcSTDrWSBv AZOdPHAeeXgebr2yeR7iHv 8+PGNvbCB3 bFV7sQ8zDGYuVzV2XDqdL7 86IoJcbQQwVrvta1vew5ng vCs5NrQkWJHsbwDhlOskFY Q9v1MsWm37 A21pQYdmMRUfWLPxPAQlEW MvgAkize1wrT2xDp9+PC9j c4wzip76aZ51sGR+PHRkIH J9xMmvSZau NOJcuC3iTUnrAyD9DJTvDh QqvG54fFRqBGylJr2ocGzc gQcfBR6jGPNtqjrir990Ki Zcs6ukEGLj cKNdVVnsLZG4T29tl1V9YJ QhDGXbKVM0pWV1aX0jeAts bjogbGVmdDsgdmVydGljYW foUTqsC442 IHRvcDsnPlBhdGllbnQgTm KaIFh8W9KqUcw6OSGgeLoy VV6qxATcHNjrEt9eiFvciK zjKE9oZENn onief476MsCwg1krMBQebQ QeJCxpUSR7S57di6A6TXTi RPFtWQH6sZV6rJ2nrKzfid ogbGVmdDsg hrZszJnoSDslQMjoN528XH RvcDsnPkJpcnRoIERhdGU6 RY28FS14yNHeq4Q6pEH0X6 BhZGRpbmct zrtamMZ6FBLvDEPnsT45My 0cxDfoKb3qBBMuTEB7EJQl dLIhE4PduD9rJrPaTYEeIK GmY8QceEOc ALouG242JPwsIrR6WXQnqz DmY8WgPEQuxXppMxD1f2L0 Fy6BO7R2XP28LY50uPDui3 P1lVL6X4Lc EETexwqitofeaNN3KARsIY QqsQ80Ze8fkAuwBq2kSSRa ZNC2LAHvoBGzR4OldU0sYm AjMDAwMDAw O5HurRKpUEkhC139VAkqLo O8DZDqpiBsS7EvBFQisShw RlL6i7Z4Tf5VJNb7VK20IR 81aIAbi4B0 pDC4P9BpXBKcadzsigytyF X9CHVrLLYstC63Tq8vdEch Pl9qCYNiIPA9SACnqKRnO8 UaiO3kAgUp GTQcGGDpA7WnoDYuTShxP1 02JQpgIwW4JYIojvJgG9Dq DAWwkJzqLmG6r6E9Ba4CMD YzLX39UEI3 tKU7BU53SR29W5LgWvjnmV FibGU+PHRhYmxlIHdpZHRo RPmrPQMnCvGsiWdmKJ1vMp 9yZGVyLWNv jXavuUCeZvVzw3lbQUUuCL irSW5zsGvdY7PofFF7IDTz o1y2Fb19J42kM1YbqYM+PG VhoKV0kPJ7 aP3hUjTtXsQ5UYosF006Oe HonCMnBhbpk8qvz8xkuCy0 MeW5USWfacWdrRdqFCY0z2 XzKz36K26r IHdpZHRoPSIxNSUiIHZhbG keqe1qlI6pPo6+PGNvbCB3 gSM8zU6gVnVfJbI9MJvrD3 49InRvcCIv Pfwdn5qnp5yigYw8PmIfDT EoxdNlpPbaMMI9h5HlJe74 Q9UctRpto6GpBfq5av55oT Nyp2L2qWC1 Q7PkISGkdxbtdNWxnAaeJK 3uRQJseorhCNJrmE8pIBPt K4o3CcFvYqS3TWnpY1Zlik B1YLOmzNZc SSjvHJV7V53vb5N1RJDrKO UkSYT5dQW0sJ8jaUdpejdw bGVmdDsgdmVydGljYWwtYW imI951HZSf dUqoBCRerV1wXVYvtTLsgK gpHX9uYDEjwpydSicATW8Q TiwgRUxJWkFCRVRIIEFOTj wvdGQ+PHRk KDX5mCiwRFgeMQQncC0sGP BiX3i7GmTuMlB8YNdiR1Ok ZFYlhnppMy01bA3kKiSuFk U8NIycL1Wu agL4JCKntMAhIOqrGLB7N8 8zm8P9SLYbXZMxDLN3fRU8 qH7zaRnzstpmmWSblIervz VydGljYWwt ULygN379ZMFbeGoeReP5Qj IfJbN4VhX7V5DnYwj9RSDt kAdgYR3jtNYnAAuzQg2zgR ageVizUF7e OMKujkddVDDfsO7rSDFfyR QnnKyyNG6sYMLbiyqcu850 OzXpWEF1MZXplFNmV7UgnI 9yOiAjMDAw KLWwI8TelCKvFTypZ109GP pgVxB0UPXerhMeC9ClLCKa kUmsAtJ6y2F6Wu62MESRFL FyczwvdGQ+ LAYtFUJ8sMxuMUiwODEygL 4uCHJoA8r2AiBtXxE7PMru I7GfUONvyhsnRb41yL9xTt SmMtY2KAje S6AufhP9BCDuzHIvDUfwRG K4A96cr0Y2SLHqPHPhACO6 sTP7vX6hjHfavshpgBShzU sgdmVydGlj YNvuTXujO401SFEoqRjeQu ZFTUFMRTwvdGQ+PHRkIHN0 xSojNZbtSHKgcB8iTWTeW2 d2BsFdFuL7 SNrlT4CqNFXibbuuXt98wY 6bMnQuGbC6ZLhqV0TxfgH3 FWAmcHUvACxdASQ7W63qu8 V2GBHpRESk QVA2sUS0pR6wtElnjvbzmV VmdDsgdmVydGljYWwtYWxp G101RYPwbIeeVt6XMR91PF 45Z3ThRdef dGFibGU+PHRhYmxlIHdpZH PfGAqeRLIfGrCrnLvxSD6l Nh9jAYOoAMUayNnmtEIoEa Kpb0skHTXi WGzwYV5quIueQ5AotHS2QP Jig7t2Li12F21kE6NhtPI+ RCJquTW2aZO3tA5gGgPmVn I5RPjjW752 RmMxzHZtLrrxe4tvd5huiJ c4AtKnFFYkmzLthIveZVG8 v1MjOe65O84cLEzbIZXvUA IyMCUiIHZh oZwywc9nfJ8nJp3+PGNvbC W1yYA5bE7iJvOpMiR4OPwe P634SeNdfGXkRqyyX07rV4 JvdXA+PHRy Hgr2VGSmhMyfGV6plCXfTT fkEf7yJCV4UkVzFlQsMYyt T0SjNQTgkuedeqztbAF4OS WjQVUpbO30 Mi1reQgqZj5fSINkUHW6AE GmxUVsL9FxnC5vOyPeIUDn SVDlI9HqgCDuEDcxA548ZN tcTdW1NHRn kiYdE0FmDMAwoNfaEdF0n7 L1Dx6GrJcjgPQmMT9nIjEm RDd4G5GrZki5VPFxoJgaAS 0ncGFkZGlu Td9hmKmsyUasBO7aJRMjxk fpr696UhTae3kpVKOvnJCz ERgcZSE4R36bj3U7MDJgVK VmAEC5eQN0 oV4ruUnmchwvrDTbkNdgjd WfgOgaHDnyFOqtE015LSIe aCokWqQJZmh1O8EkMja3KG ScoEmnZD1w fHLvBJxeZn2dlWozjQglFK 9qHBPdhnezn622YlByt9qc ESXdzAWmYOcuVXE0F06kg2 L9HVTaUJFz IIH7kNW9oE2sbYlrufnofM VmdDsgdmVydGljYWwtYWxp L588BNUwzSbcSe8UHnm2F8 LcAqq0VGRz dTxmSK4oiPAmTDorDw5oaC dmuKnzPR6lZIRspuvgn793 DpEcf7qjRXRxrKUkOXpaOO B7M81wq5E3 ELPcCAFpFMV4kIJ5tF2akB lnbjogbGVmdDsgdmVydGlj IFidFTlcB597HKOfuRzaWv BheWVyOjwv dGQ+VN03nj12Y2CxBhsnLs j7LVQpGAZ4yLF9gI2uYMHj MEmpo0E4fRQ7O0SoghIfni 9lf9ryOWMb ZTo (more content not included)... Normal [facility] Inpatient Patient Summaryon 08-26-2021 [place] [address] Patient Discharge Instructions Name: IKE FLANNERY : 1970 Patient Address: [address] [place] [address] Primary Care Provider: Name: RANDY CALLE After you are discharged if you find you have any questions, please, call [phone] ext [phone] to speak to a nurse. Discharge Diagnosis: Internal derangement of left knee Prescription Information: If you have been given a prescription for narcotics, seek immediate medical attention if you have any difficulty breathing or any sudden status changes such as confusion and sleepiness. If you or anyone you know is experiencing suicidal thoughts, mental health, alcohol and/or drug addiction problems; contact the [facility] 22/09 Crisis Hotline -Text 4HXWK at 739213. If you received any narcotics, sedation, or [...] business decisions or sign any legal documents [facility] would like to thank you [...] Have Not Changed Other Medications acetaminophen-hydrocod one (!-Coweta 5 mg-325 mg oral tablet) 1 tab(s) Oral Every 6 hours as needed as needed for pain. carvedilol (carvedilol 12.5 mg oral tablet) 1 tab(s) Oral 2 times a day. cyclobenzaprine (cyclobenzaprine 10 mg oral tablet) 1 tab(s) Oral At bedtime as needed for spasm. hydroCHLOROthiazide (hydroCHLOROthiazide 25 mg oral tablet) 1 tab(s) Oral every day. potassium chloride (Potassium Chloride (Cvz-Jcdo-Lrn 10) 10 mEq oral tablet, extended release) [...] you can keep with you. acetaminophen-hydrocod one (!-Coweta 5 mg-325 mg oral tablet) 1 tab(s) [...] Oral every day. potassium chloride (Potassium Chloride (Onw-Gzhr-Ama 10) 10 mEq oral tablet, extended release) [...] (more content not included)... [facility] [place] [facility] Intra-Op Record Summary Primary Physician: Hua Oglesby DO Finalized Date/Time: 08/26/21 15:08:30 Pt. Name: IKE FLANNERY /Sex: 1970 FEMALE Med Rec #: [id number] Physician: Hua Oglesby DO Financial #: [id number] Pt. Type: D Room/Bed: / Admit/Disch: 08/26/21 [...] Role Performed Surgeon - Primary Anesthesiologist of Construction Ironworker Record Time In 08/26/21 14:02:00 08/26/21 14:02:00 08/26/21 14:02:00 Time Out 08/26/21 14:56:00 08/26/21 14:56:00 08/26/21 14:56:00 Procedure Arthroscopy Knee(Left) Arthroscopy Knee(Left) Arthroscopy Knee(Left) Last Modified By: Rj Eid RN, Erica RN Baumer, Erica RN 08/26/21 14:54:01 08/26/21 14:54:01 08/26/21 14:54:01 Entry 4 Entry 5 Entry 6 Case Attendee Dorothy Serrano RN MARKET DIRECTOR, Shanique Brown CST, CST Role Performed Construction Ironworker [employer] Personnel Time In 08/26/21 14:02:00 08/26/21 [...] Yes Primary Surgeon Hua Oglesby Left Efra DO Surgeon Comment LEFT KNEE ARTHROSCOPY, [...] By Rj Eid (more content not included)... [facility] MAGR PACU Recordon MAGR PACU Record MAGR PACU Record Summary Primary Physician: Hua Oglesby DO Finalized Date/Time: 08/26/21 15:37:09 Pt. Name: IKE FLANNERY/Sex: 1970 FEMALE Med Rec #: [id number] Physician: Hua Oglesby DO Financial #: [id number] Pt. Type: D Room/Bed: / Admit/Disch: 08/26/21 11:01:00 - Institution: PACU Case Times MAGR Entry 1 In PACU I 08/26/21 14:56:00 Discharge from PACU 08/26/21 15:30:00 I Last Modified By: Elvira Navarro RN 08/26/21 15:37:04 Finalized By: Elvira Navarro RN Document Signatures Signed By: Elvira Navarro RN 08/26/21 15:37 [facility] MAGR Postoperative Recordon 08-26-2021 MAGR Postoperative Record MAGR Phase II Record Summary Primary Physician: Hua Oglesby DO Finalized Date/Time: 08/26/21 16:25:07 Pt. Name: IKE FLANNERY./Sex: 1970 FEMALE Med Rec #: [id number] Physician: Hua Oglesby DO Financial #: [id number] Pt. Type: D Room/Bed: / Admit/Disch: 08/26/21 [...] Signed By: Elvira Navarro RN 08/26/21 16:25 [facility] [place] [facility] Pre-Op Record Summary Primary Physician: Hua Oglesby DO Finalized Date/Time: 08/26/21 15:18:23 Pt. Name: ALMA DELIAIKE/Sex: 1970 FEMALE Med Rec #: [id number] Physician: Hua Oglesby DO Financial #: [id number] Pt. Type: D Room/Bed: / Admit/Disch: 08/26/21 [...] By: Elvira Navarro RN 08/26/21 15:18 Normal [facility] Operative Report - Surgeon/P aster [...] on: 08/30/2021 13:39 EDT] Hua Oglesby DO [facility] Patient Handouton 08-26-2021 Patient Handout POST [...] done to rule of a DVT. Normal [facility] Progress Note - Nurseon 08-01 Progress Note - Nurse Pre-op call done, instructed to arrive @ 1100 on 08-26-21, NPO after midnight, and need for ride to and from hospital-verbalized understanding. [Electronically Signed on: 08/23/2021 13:36 EDT] Gino Painter RN [Verified on: 08/23/2021 13:36 EDT] Gino Painter RN Normal [facility] 2019 Novel Coronavirus (CoVI D-19), KYLE LCon 08-22-2021 SARS-CoV-2 (COVID-19) RNA KYLE+probe Ql (Unsp spec) Not detected Invalid Interpretation Code Not Detected [facility] Comment on above: Order Comment: [id number] [facility]# [phone] Result Comment: This nucleic acid amplification test was developed and its performance characteristics determined by [employer]. Nucleic acid amplification tests include RT- PCR [...] detected) result in this assay. Performed At: [address] [id number] José Manuel Chery PhD Ph:[phone] Performed By: #### 6 [id number] ####[facility] (DEFAULT)[address] [place] [address] Coding Summaryon 08-15-2021 Coding Summary [facility] PcwtxyhnGBg5yDs+PGhlYW Q+EF2DRKRcY15wvPHnbN4R T7iPHF9HEJVJYMZTGM5OIP 7lePV1NAvyH4DccrKf PzsakDNnGT74VJw6FYX2uF ktNAuhvM0vwYGsP3f2DwKr SL64kX92TBxuZOPrGuS1Ng ZpbjsgbWFy Y0tjJhCufOYwHpi+PHRhYm xlIHdpZHRoPScxMDAlJyBz cUmzEA3pSb5aFZQsOLXaeE xhcHNlOiBj n9ydORCvLSphWE7bxOwaS2 ZtaFH9EHNuh4v6Ug35bNK+ EBFeAJF0dHkrKHhgc252Ka Yib9seJTO0 cSAzTCpoNYG5Z62po3Y8SB PiPSAmDXS8zOM5xN9wgLcq xslxD1IucLXoXcH0IFU7nY CsoM9uyQeu rpdexM2pQjl+M61PLA9ALR SNYG8EQfd1E6OwUbjtvRU+ DV60NXJrRT28kMSxvVRgl9 cwtVx3HxFr LDBaGAQ7uQtpXZmhs9ByVQ HdW75caNCel0N6TNZpiLff wXJnTuVxpLT9vE6lRBepwb yut5flfuyk Jfzsd1kauz56vC65E27tSX wiECSgZIS2ZNIvKHUkcMgg py2dlW7tPz7+BXors4hxs3 jbkSe8BaGp PRQjzhQmeRnoEAY3x7ScVd 90T8VsiBdac1GeSij8nq18 lHUvw1B2uHZ8LItpSMWckW 2uPShvHxN0 FQTsYuTvyA88oKQyCNomRm 9toNplfNsnJR0yCKKeijes UJEcxF9eNBGbwWVjlVipEH 4wNTBpbjtm p370NjFbZOS9CVSmlSExO5 DbnQ5yGhWuYOMeSPBzM9At nTSiGHwsY228WYvjFrR2MR DyiqJsA1Hv ISZagTjoOzM7y0K8Op4Np3 IvuqliSRG1WWakCIM6LlN1 SkCiFpS8U2YgElc7ICAvnT rtBX8bF5Mp PKCvaagkmdjrqVL9LIRdHY AshW67eWLwBAdbTo0yn8J0 m552BNHzEOEpgA70Ar6zmW ogMTBwdCBU zK9mpglnu4snafvwQrThDI TwQEh4TAh9GKCnpWsyVzLo HPK5LxW7TJJ4tSOwyU9tmP frxfplfZ1b Oyc+A86znY8qZAM7BRD9ly fbNUFejeDcWV64UF05Q4Pl PjwvdGFibGU+PGRpdiBzdH naLY5xXtYw u1xip5FfKYtdS6FlDDMuBU gkAhj3WJJcKWC1bHY5jQ9y OIYhODukz9S8bGE8J0Xnfp Nxjv9jj9wz AKDoUCwhI54slEUzw7T8GS FwfEG9RNHfcFpyUfVorD69 Oyc+WRSydShxc9WqGuyul0 vbq5ofsAk1 FfZhJMKjaoZekGdcCKB4h7 AjDq36A37mEYgqBEWaVRVk CZDtMAGziLqrmu7lrG7eMr 8+PGNvbCB3 jWY2wK1hNVZkKiI2TOvqM0 69WnAblLJdTarwr6mdu7dh wYq6SeKaYBOyqyShuHbfTX Q3m7QcOr24 Y11vXBtqBBQfUVQgTQWiGL ArmUrhhm4ttH9uOt8+PC9j p2frew40nX83pDR+PHRkIH W3qYrdKGuy XQSprS8qMNnkFdF6WZAiNd KrcD91fRLnUVmoEf4ytCaf hYwhMQ8sPZSsfuore671Tf Ekk3ryNTGl zSFaUEaeGJB0H75kh9R4WE NqFDUgAVK0dAO9qV7ovWko bjogbGVmdDsgdmVydGljYW rmRGzwH946 IHRvcDsnPlBhdGllbnQgTm BnIEt3E2MaTqm7LZGddJny DT0mcFEaMOtwUn2jgOwzqY slRZ6aWZMu krbtn303XhQhq7shZIDnbR IuMFsbWGE3J32mt7R9CBLg DHTcVHC6nVY5kM3koNxmyy ogbGVmdDsg tgNjhZwfJOmeVKepQ916US RvcDsnPkJpcnRoIERhdGU6 CG93EK91bHWjj7L5qUL9D0 BhZGRpbmct fcbuuPM2BXYiQJEpfD87Bv 2mcGwkHh1kEWAvJXW6YYSt cQWqC6QxlI5dArOyJITpBY HmM7DqnLGh FSogV649FNelRhW2WVCxnb ZxD4JsGAZvfWalZzH5l2U1 Vq9WF0B0PV06GO43eMFsn4 Z3eCE9X0Cx OWIunwijcvvekHW0PWSjSP YxnP32St5nwYgeJd8pIKLr ALH4KAPdmNZpZ4TfgT8oOt AjMDAwMDAw W0MnkDQgNPtbT328SNlsRx M4BZGmmlLtZ5JwOHDmjQjo AmO4i7W6Pr0BMAf9YH33HH 36fPHrn7B4 yWH2X5RcLIDovzwilflooU M6WACrBSSckU97Dy1stHgh Tf9qGVIgNRX8BPXnkBPxJ9 ZzhX3lUgRi PAKkQXDrL3DniEObCSlhZ8 68LGrrQmW1CYOgosKiH6Ot RYOneYiwTtS3u9X8Sy0MJM VxYL82UUT7 iLP8FZ60YW29Q8PuGwcumZ FibGU+PHRhYmxlIHdpZHRo ZBcdHTDnUbEgrKqyIF3aVi 9yZGVyLWNv xXshhPJnRvKae8tuXNUgTP wvVU0jaUoyA8FwfDO8RDDa f0y0Bb14A65fJ2LdkAA+PG EicSG2nCW3 lM9jWyGaSmY8XKxiJ813Qq FegNSmNsciz7bvb0cmdXw0 HqD5DDGkjfXrlWxqBTX5d9 NbDd13X86v IHdpZHRoPSIxNSUiIHZhbG ifsz1csK3uVt6+PGNvbCB3 oIW7fL6oYqIuFsL9YYiwB0 49InRvcCIv Anylh6ixo1kfsMv4LxMaNF WmssIvjLewMXJ4u3WnIs70 D1QwdVbua0KqHlh2xo49qE Zwb3D3lRL3 U4TaOLIozlpbpYPpdDpsJJ 1bZREqjbdnILFqfA8uHBOb H4w4QfYdUfO6DAivP8Ofpc S6GMFauNCy UIkaFEZ3R52wd5Q8OVCbHQ PoBSN6qAR9cC5qaGrbjxmd bGVmdDsgdmVydGljYWwtYW ulE389XOLp sUniDNWmtK2hXSVmqVAscV npJE1xTKDkhtfxWfiHCV3D TiwgRUxJWkFCRVRIIEFOTj wvdGQ+PHRk RZD6sWxcJUcaWZHkbH4hEI QzF7l4OsNoBiY3YNkhX6Ye WPOpledyGl79qU0aYnTyTr N9ZYvbN6Sd jzI2VJEloNOcREbjNJJ9D3 3xd3I3OUNlZJOgDTQ0xMS8 bK6abVvqklytnGXniLeblf VydGljYWwt UUyjM346EMVitQpmNdD1Vb CvJcT1PpL3T8RzPbr9LQRb gOffUJ5qrFJdRWifDt5tcN aoqHcsZK9a YCBipwbrCCBnwV9aUGUnsO TltYvtXQ1vGACgagboc561 FlAvBEG6INZzjPGpT2GkqC 9yOiAjMDAw GQTgN2OmhXBzLGfoC723BS xcIvU5TZOnbfUcS5JjKHIn yAugYlF5g3M9Mn51TSSYJF FyczwvdGQ+ VGRxLPD8vPxmRJidRZZnaS 0hHWAtT6k8XvPgZhP6UZgg K6MvRYMmdxpiXo84fA8uYq VnLeW3CPda I0OoflQ5MFTlmUNzSQciOT V9P45ly0W9YLHvXCKxGTX4 rRU9jH3jhSiojvlrpVNwwW sgdmVydGlj RUraDYdyS198DJAqdAsfZm ZFTUFMRTwvdGQ+PHRkIHN0 eIwaQJfzDEKwhZ2vOTKhP4 l6TuQbVhW2 PEdyA3YiUKNckbcpLg15gS 5mCkZkQpC0QEpqX9GeuvT0 MLMzxBOvDOgvYNP5E39rh5 D5ECIjIJZp PDN8fMJ1hO2jgFyhecgkiO VmdDsgdmVydGljYWwtYWxp G018GOKkiNenPn4BED15EN 27N8XbNzjw dGFibGU+PHRhYmxlIHdpZH NcOLnvEVQgHySqbDxqCX3j Db7rLBOuJCVyrItvfTVnMu Zig7ujTFRq ISgzDR4xtKpfG4FlxOU3PX Bas9t1Ig57N00fW0WxoBM+ NFLodOC6dUB7aZ4eWiJnHc F5UDeoN507 FtHyqFWmXusfa3jxp6gsiJ l4KnSwLPNhmiMdkVzpHUA1 z2FwLf70C77vZWdfXKGlLJ IyMCUiIHZh fLeksf5lcP5iAj7+PGNvbC V0eFP1aX4tBkZaWkU7UXsf G362WqCxtJQoCoubH90nT6 JvdXA+PHRy Agw5USJoqBtpJW0luOAzPG siPn8fHET0MmHpDrIfJIfh U9OhMJNyvsjprwmqaXU9UL NtZQVxrC78 Qv5bgMkcTy8fQEFwSDD0HE JxqLBbL3JztX0jIqEdMIKo YRTkY0ZvgYWhCKeaM150FG ghQjK0FBPe rhLoG2MrAGAugNgmZcQ9v9 J3Gp9CmOceiVRuCZ6dGtHg OVh7V0KfNxd5YVCtqQolUA 0ncGFkZGlu Jj1ozLhfsTpjUI7mVVWljs pab867BqOma7evSVIgtEYj BUoqUQM4I06wt4E8HSNnRK XhBBE5sZI7 zG9sbDmeoiwpiWAamLmngv PbaYktRSaoUXdgJ043LYLb aPmkLnYOIpm1V3ChHml4ML KtkDkhDD4k oXLgUFraOp9erCppvPekFK 0iQORspkpxc708IoNao4fr FUVolWRvTKsaOEG9R19te6 M7HEDdJIPy BVH4bQN4pU7arGvbgoipvI VmdDsgdmVydGljYWwtYWxp I373ZUAjgZbeNl1XVzf7B3 IoAik8BAHn gSheEI1ozVVoGGclUq6uaM nfsTjbGH1jWACnaseul328 FgQgs9rgITEzbIByEQxfUA B8J49jb1G2 EHMcIMPrUOO4kTV0tJ8oxS lnbjogbGVmdDsgdmVydGlj WXnmLKidV427FSOmiSnmHx BheWVyOjwv dGQ+FW60lh36H2LdMjivGv a2WNElGIM4jRL4wV4vSGPz IDtzx1V7aUL9C3BzvoErfc 0vb4xrIMGq ZTo (more content not included)... Normal [facility] Inpatient Patient Summaryon 08-15-2021 Inpatient Patient Summary [facility] [address] [place], [place] [id number] Patient Discharge Instructions Name: IKE FLANNERY : 1970 Patient Address: [address] [place] [address] Primary Care Provider: Name: RANDY CALLE After you are discharged if you find you have any questions, please, call [phone] ext [phone] to speak to a nurse. Discharge Diagnosis: Prescription Information: If you have been given a prescription for narcotics, seek immediate medical attention if you have any difficulty breathing or any sudden status changes such as confusion and sleepiness. If you or anyone you know is experiencing suicidal thoughts, mental health, alcohol and/or drug addiction problems; contact the [facility] 22/09 Crisis Hotline -text 4hope to 741741. If you received any narcotics, sedation, or [...] business decisions or sign any legal documents [facility] would like to thank you for allowing us to assist you with your healthcare needs. The following includes patient education materials and information regarding your injury/illness. IKE FLANNERY has been given the following list of follow-up instructions, prescriptions, and patient education materials: Follow-up Instructions With: Address: When: MYESHA VINSON [address] [facility], [address] [place], [place] [id number] Business (1) 09/03/2021 9:15 AM With: Address: When: RADNY CALLE [facility] [place] [address] Business (1) Medications During the course of your visit, your medication list was updated with the most current information. The details of those changes are reflected below: Medications That Were Updated - Follow Below Instructions Other Medications Updated: potassium chloride (Potassium Chloride (Qkf-Kvnf-Wpy 10) 10 mEq oral tablet, extended release) [...] Oral every day. potassium chloride (Potassium Chloride (Tcr-Qohb-Cfx 10) 10 mEq oral tablet, extended release) [...] for Disease Control and Prevention October 2013 [facility] Patient Handouton 08-15-2021 Patient Handout [facility] Progress Note - Nurseon 07-31 Progress Note - Nurse Dr. Small review s PAT information and testing results. Ok to proceed, no orders given. [Electronically Signed on: 08/14/2021 12:02 EDT] Dary Gallegos RN [Verified on: 08/14/2021 12:02 EDT] Dary Gallegos RN [facility] .Auto Diff 08-12-2021 Auto [place]cock % 8 % Normal 03-13 [facility] Comment on above: Performed By: #### 1 [id number] ####[facility] (DEFAULT)[address] [place] [address] Baso Abs# 0.1 x10 Normal 0.0-0.2 [facility] Comment on above: Performed By: #### 1 [id number] ####[facility] (DEFAULT)[address] [place] [address] Basophils/100 WBC (Bld) 0.9 % Normal 0.2-2.0 [facility] Comment on above: Performed By: #### 1 [id number] ####[facility] (DEFAULT)[address] [place] [address] Eos Abs# 0.3 x10 Normal 0.0-0.4 [facility] Comment on above: Performed By: #### 1 [id number] ####[facility] (DEFAULT)[address] [place] [address] 66608 Eosinophils/100 WBC (Bld) 3.9 % Normal 0.9-4.0 [facility] Comment on above: Performed By: #### 1 [id number], [id number], [id number] ####[facility] (DEFAULT)[address] [place] [address] Lymph Abs# 2.6 x10 Normal 1.3-2.9 [facility] Comment on above: Performed By: #### 1 [id number], [id number] ####[facility] (DEFAULT)[address] [place] [address] 81935 Lymphocytes/100 WBC (Bld) 30 % Normal 14-48 [facility] Comment on above: Performed By: #### 1 [id number] ####[facility] (DEFAULT)[address] [place] [address] Hitchcock Abs# 0.7 x10 Normal 0.0-0.8 [facility] Comment on above: Performed By: #### 1 [id number], [id number] ####[facility] (DEFAULT)[address] [place] [address] Neut Abs# 5.0 x10 Normal 1.5-9.2 [facility] Comment on above: Performed By: #### 1 [id number], [id number], [id number] ####[facility] (DEFAULT)[address] [place] [address] 07393 Neutrophils/100 WBC (Bld) 58 % Normal 44-88 [facility] Comment on above: Performed By: #### 1 [id number], [id number], [id number] ####[facility] (DEFAULT)[address] [place] [address] BMP Standardon 08-12-2021 eGFR Non AA >60 Invalid Interpretation Code [facility] Comment on above: Performed By: #### 1 [id number], [id number], [id number] ####[facility] (DEFAULT)[address] [place] [address] 18661 eGFR AA >60 Invalid Interpretation Code [facility] Comment on above: Result Comment: Pollution Control Chemist [place]ina Kidney disease could be indicated at eGFRs of less than 60 ml/min/1.73m2. Kidney Failure is indicated at less than 15 ml/min/1.73m2 Performed By: #### 1 [id number], [id number], [id number] ####[facility] (DEFAULT)[address] [place] [address] 12253 Anion gap [Moles/Vol] 14.0 mmol/L Normal 5.0-19.0 [facility] Comment on above: Performed By: #### 1 [id number], [id number], [id number] ####[facility] (DEFAULT)[address] [place] [address] 65378 Calcium [Mass/Vol] 9.6 mg/dL Normal 8.9-10.3 [facility] Comment on above: Performed By: #### 1 [id number], [id number], [id number] ####[facility] (DEFAULT)[address] [place] [address] 89280 Chloride [Moles/Vol] 102 mmol/L Normal 101-111 [facility] Comment on above: Performed By: #### 1 [id number], [id number], [id number] ####[facility] (DEFAULT)[address] [place] [address] 25946 CO2 [Moles/Vol] 25 mmol/L Normal 21-32 [facility] Comment on above: Performed By: #### 1 [id number], [id number], [id number] ####[facility] (DEFAULT)[address] [place] [address] 14787 Creatinine [Mass/Vol] 0.72 mg/dL Normal 0.60-1.30 [facility] Comment on above: Performed By: #### 1 [id number], [id number], [id number] ####[facility] (DEFAULT)[address] [place] [address] 65387 Glucose [Mass/Vol] 100.0 mg/dL Normal 74.0-118.0 [facility] Comment on above: Performed By: #### 1 [id number], [id number], [id number] ####[facility] (DEFAULT)[address] [place] [address] Osmolality 275 mOsm/L Invalid Interpretation Code [facility] Comment on above: Performed By: #### 1 [id number], [id number], [id number] ####[facility] (DEFAULT)[address] [place] [address] Potassium [Moles/Vol] 3.4 mmol/L Low 3.6-5.1 [facility] Comment on above: Performed By: #### 1 [id number], [id number], [id number] ####[facility] (DEFAULT)[address] [place] [address] Sodium [Moles/Vol] 138.0 mmol/L Normal 136.0-144.0 [facility] Comment on above: Performed By: #### 1 [id number], [id number], [id number] ####[facility] (DEFAULT)[address] [place] [address] Urea nitrogen [Mass/Vol] 10 mg/dL Normal 8-26 [facility] Comment on above: Performed By: #### 1 [id number], [id number], [id number] ####[facility] (DEFAULT)[address] [place] [address] Urea nitrogen/Creatinine [Mass ratio] 14.0 mg/mg Normal 4.6-16.2 [facility] Comment on above: Performed By: #### 1 [id number], [id number], [id number] ####[facility] (DEFAULT)[address] [place] [address] CBC w/ Auto Diffon 2 Erythrocyte distribution width (RBC) [Ratio] 14.6 % Normal 11.5-15.0 [facility] Comment on above: Order Comment: CBC C LOTTED. PATIENT CALLED BACK FOR RECOLLECT. Performed By: #### 1 [id number], [id number], [id number] ####[facility] (DEFAULT)[address] [place] [address] Hematocrit (Bld) [Volume fraction] 35.0 % Normal 33.7-40.4 [facility] Comment on above: Order Comment: CBC C LOTTED. PATIENT CALLED BACK FOR RECOLLECT. Performed By: #### 1 [id number], [id number], [id number] ####[facility] (DEFAULT)[address] [place] [address] Hemoglobin (Bld) [Mass/Vol] 11.0 g/dL Low 11.3-15.9 [facility] Comment on above: Order Comment: CBC C LOTTED. PATIENT CALLED BACK FOR RECOLLECT. Performed By: #### 1 [id number], [id number], [id number] ####[facility] (DEFAULT)[address] [place] [address] Instr WBC 8.6 x10 Invalid Interpretation Code [facility] Comment on above: Order Comment: CBC C LOTTED. PATIENT CALLED BACK FOR RECOLLECT. Result Comment: CBC RECOLLECTED @ 08/12/2021 15:15:27 EDT BY FROILAN. ALS. Performed By: #### 1 [id number], [id number], [id number] ####[facility] (DEFAULT)[address] [place] [address] Man Diff? Auto Normal [facility] Comment on above: Order Comment: CBC C LOTTED. PATIENT CALLED BACK FOR RECOLLECT. Performed By: #### 1 [id number], [id number], [id number] ####[facility] (DEFAULT)[address] [place] [address] MCH (RBC) [Entitic mass] 25 pg Normal 24-34 [facility] Comment on above: Order Comment: CBC C LOTTED. PATIENT CALLED BACK FOR RECOLLECT. Performed By: #### 1 [id number], [id number], [id number] ####[facility] (DEFAULT)[address] [place] [address] MCHC (RBC) [Mass/Vol] 31 g/dL Normal 26-37 [facility] Comment on above: Order Comment: CBC C LOTTED. PATIENT CALLED BACK FOR RECOLLECT. Performed By: #### 1 [id number], [id number], [id number] ####[facility] (DEFAULT)[address] [place] [address] MCV (RBC) [Entitic vol] 79 fL Low 81-100 [facility] Comment on above: Order Comment: CBC C LOTTED. PATIENT CALLED BACK FOR RECOLLECT. Performed By: #### 1 [id number], [id number], [id number] ####[facility] (DEFAULT)[address] [place] [address] Platelet 491 x10 High 138-427 [facility] Comment on above: Order Comment: CBC C LOTTED. PATIENT CALLED BACK FOR RECOLLECT. Performed By: #### 1 [id number], [id number], [id number] ####[facility] (DEFAULT)[address] [place] [address] Platelet mean volume (Bld) [Entitic vol] 9.4 fL Normal 6.3-10.2 [facility] Comment on above: Order Comment: CBC C LOTTED. PATIENT CALLED BACK FOR RECOLLECT. Performed By: #### 1 [id number], [id number], [id number] ####[facility] (DEFAULT)[address] [place] [address] RBC 4.41 x10 Normal 3.70-5.30 [facility] Comment on above: Order Comment: CBC C LOTTED. PATIENT CALLED BACK FOR RECOLLECT. Performed By: #### 1 [id number], [id number], [id number] ####[facility] (DEFAULT)[address] [place] [address]65[address] WBC 8.6 x10 Normal 3.5-10.5 [facility] Comment on above: Order Comment: CBC C LOTTED. PATIENT CALLED BACK FOR RECOLLECT. Performed By: #### 1 [id number], [id number], [id number] ####[facility] (DEFAULT)[address] [place] [address] 05115 MRI Knee w/o Lefton 07-27-19 MRI Knee [...] Michael Pappas on 07/28/[address] [facility] BASIC METABOLIC PANELon - BUN/CREATININE RATIO NOT APPLICABLE Normal 6- [facility] Comment on above: Order Comment: FASTI NG:YES FASTING: YES Performed By: #### 1 [id number] #### [facility] [address], [address] [place] [address] Tab Machine Operator: Heraclio Miller MD Calcium [Mass/Vol] 9.0 mg/dL Normal 8.6-10.4 [facility] Comment on above: Order Comment: FASTI NG:YES FASTING: YES Performed By: #### 1 [id number] #### [facility] [address], [address] [place] [address] Tab Machine Operator: Heraclio Miller MD Chloride [Moles/Vol] 106 mmol/L Normal 98-110 [facility] Comment on above: Order Comment: FASTI NG:YES FASTING: YES Performed By: #### 1 [id number] #### [facility] [address], [address] [place] [address] Tab Machine Operator: Heraclio Miller MD CO2 [Moles/Vol] 27 mmol/L Normal 20-32 [facility] Comment on above: Order Comment: FASTI NG:YES FASTING: YES Performed By: #### 1 [id number] #### [facility] [address], [address] [place] [address] Tab Machine Operator: Heraclio Miller MD Creatinine [Mass/Vol] 0.73 mg/dL Normal 0.50-1.05 [facility] Comment on above: Order Comment: FASTI NG:YES FASTING: YES Result Comment: For patients >49 years of age, the reference limit for Creatinine is approximately 13% higher for people identified as -[place]. Performed By: #### 1 [id number] #### [facility] [address], [address] [place] [address] Tab Machine Operator: Heraclio Miller MD eGFR NON-AFR. BRUNEIAN 96 mL/min/1.73m2 Normal > OR = 60 [facility] Comment on above: Order Comment: FASTI NG:YES FASTING: YES Performed By: #### 1 0165 #### [facility] [address], [address] [place] [address] Tab Machine Operator: Heraclio Miller MD GFR/1.73 sq M.predicted among blacks MDRD (S/P/Bld) [Vol rate/Area] 111 mL/min/{1.73_m2} Normal > OR = 60 [facility] Comment on above: Order Comment: FASTI NG:YES FASTING: YES Performed By: #### 1 [id number] #### [facility] [address], [address] [place] [address] Tab Machine Operator: Heraclio Miller MD Glucose [Mass/Vol] 85 mg/dL Normal 65-99 [facility] Comment on above: Order Comment: FASTI NG:YES FASTING: YES Result Comment: Fasting reference interval Performed By: #### 1 0165 #### [facility] [address], [address] [place] [address] Tab Machine Operator: Heraclio Miller MD Potassium [Moles/Vol] 3.7 mmol/L Normal 3.5-5.3 [facility] Comment on above: Order Comment: FASTI NG:YES FASTING: YES Performed By: #### 1 0165 #### [facility] [address], [address] [place] [address] Tab Machine Operator: Heraclio Miller MD Sodium [Moles/Vol] 140 mmol/L Normal 135-146 [facility] Comment on above: Order Comment: FASTI NG:YES FASTING: YES Performed By: #### 1 0165 #### [facility] [address], [address] [place] [address] Tab Machine Operator: Heraclio Miller MD Urea nitrogen [Mass/Vol] 12 mg/dL Normal 7-25 [facility] Comment on above: Order Comment: FASTI NG:YES FASTING: YES Performed By: #### 1 [id number] #### [facility] [address], [address] [place] [address] Tab Machine Operator: Heraclio Miller MD Coding Summaryon 01-28-2021 Coding Summary HTMLBase 64 UhnwgvjeTNx9bYq+PGhlYW Q+PG4HBEKsA99ngSBgiC7O E8xGIB4LXAFUCRTUTN1ZAW 1tuVK8XIaxT9ClwoPu EzimnIXvYS33BTd1VHW9nZ vnVFdkhC2lkTPlU5j4JkWk MS94vD97VZfvKLDzPdE3Az ZpbjsgbWFy M3vcSmGtnMRtQwh+PHRhYm xlIHdpZHRoPScxMDAlJyBz uNptOD8gXt7iRUQvLOSsbZ xhcHNlOiBj c5gcBDGgRTtwGB9gpCaiX6 QziDL2QNXem0d4Xm43uRY+ QVXlLRP7wLcrUDmvh550Ya Vtk8dcIIF6 sCXuAGyaOHE2O23af6Z6LS DgURPsZXS0aNU5qG3zkOag waalK3DrvUXuYoO1WPM9oH WgmI0njNfv oczjrS6oSum+R92SNG2UFH IOJO5OKrc4C2NaFxynyFW+ VC58UPHiZH31hAItqPZax5 ukzZr7ZbHw PEBjQKW4iCcnIUkxn1VqNZ VwF37wmMLax7S6VTZwuJjl sLSwJeJlfZS3gL7vBRriun lhc3otoxoo Btako3phfa18wU73F18wCA tvBEBdXCE2HVAeBMRteEjp zx4rbG0aEm3+LGwik8tuo9 ofaPh1IyRs ZFUollOaoDpaAUH2q5TuCu 24U6KccZrqb1MsSqf6vc97 qFUip3R2xPQ0RVbyTSUytB 6qFRvyGtQ1 JBRdPdPrbZ29yUYvXZsrBs 4gkAovuFpxHG4qXTTmjtmh AVYgvD5bNXGasWHteEpwDV 4wNTBpbjtm u647CzMcOFQ0ASQvpMCiO2 LtiJ0kNfJpCNWoQBPzL9Yo hJAtSLupY644JAaaYnH4IR SapnNwD6Tr SZPbuDtoPyF9t2Y9Wk9Yf4 KytkudXAN2EDiqODRcBrL3 AtJuWwY2V2HlEbt5TILjuS nrGR4kB6Rb FHIxncvzfsnhaGH1PHFwWA AahF26gVWiACfbTy3jt5D6 l353HDMkARLtdM33Np7avC ogMTBwdCBU pH8bskixb7qdjjmvXyBqWI SpIEf2YPo0KZUglLgjNlJh XSF8OrM8XDQ4sDWcwK2lzD yiokqleX1d Oyc+C49dvM7sYKO2ZAM3dt hzRYXmgiTgMY19RA36I0Vv PjwvdGFibGU+PGRpdiBzdH ymOS5pYdCy g2zni8JiVOgkG8VjCZZxFP aqNfh5BGRfDQW6kAJ9mY7o NZOjHQmla0N9dVG1E6Rfly Zzbx1bb3bj OPUeOCaxF59joJQve7H5ZO CdwJM0HZVfzAgrQrArqS33 Oyc+BGWjcLrsa7LrPzgum6 bkd2foqYu3 XdKsICHbguYzeAcaSXE2g9 BoFw06X28bPKmkRMQcSIEr ZVPyQDFvhZmutv5vhS2oSr 8+PGNvbCB3 mMW2uR3wAUQvWxO5QRdsE3 20VcLdqKDoCwaza4zvi9bh sFf2AmYnDMCdbiQdzRncAE F6f4ToCn15 J79tGWodUUYcNCZrPXKiMB SpuUfyyo9fzB2iDl0+PC9j o9rvfb45xD36pXS+PHRkIH Z3bGqcBEzp WUJaaQ6pUPsdJgV8APZxEs IltJ28lGZpDUkyQc2jdLdm vOvfNG7qAQDytdint616As Owc6vbRQJi xZQbCKygZYG2R06ek5P9UC WaMSJyWAX3gTA1kK6tvGvl bjogbGVmdDsgdmVydGljYW rvPUpnP680 IHRvcDsnPlBhdGllbnQgTm TtMMs8H4IgMly9OEAbjBbz JH2seMNfJDzsJj2isVzxvD bgEM4bMERn ffvyd286FtBli6mdFPVabU OzWUpuWLW8K01fz8C0NFZe TVAdBZW1kVO4kG1dmEjwmy ogbGVmdDsg snWnhKctZOwfVZhzB211MV RvcDsnPkJpcnRoIERhdGU6 LC72GZ64lIZwn9E0hMH9T6 BhZGRpbmct cktbjZC0CNLaGSMgrS28Sx 7cpBvtUf4oKMFaSDH3GZSq lAMvP8SuzB2fBqWnPGSwYL UhV6SfrOPb OWubE824NFkbTwK8SZKmug XrW1WsQMSdvTogEhU2m2B1 Fx4QV0N6PE74BJ11eUKxy7 S4oZP4S3Za ZNEwzwokajtxwHT9JKPxOI NrzP44Xw1jeIwoWd3cGBXe LJD8TZAfjOYtR3UmwW7vLp AjMDAwMDAw G4WyhVYwACdhW438QHgwRj S8QVJktnAeO3ZwNNJzfBky XnX3v8I1Tt5XGLu9FO95XL 59nNTtp1L6 pLH5P3QuRWAhalsdudhgpK E4RBMkZECunI45Nk3boEae Ni4nYDQtMJM1QEUyaKTbS2 ItsS1gZpCu UMNhEOSjY4AwnJLzBOrpA4 78STrbBpT5DQXjzpBnX9Bx MZGzrWkvZvM2m8F3Sm5TSJ FqTS79YTD0 nIG6LF04LA46N9ChHmdpyK FibGU+PHRhYmxlIHdpZHRo ZYcrCNCkPvWdlFkpIB4tSn 9yZGVyLWNv oLlnnIQpZyHsd0qqLRNoOV tgQF9wgItiE3XzzZD6VJAj x1f5Kl99F95oY8XvuWJ+PG UigLU8oMV0 eD2aWxPuWiZ9AXpoJ087Uc WzeJOkNauyv9afy4edaLg3 LhT5ARHphjUiyBwcSWG7m5 GnYe13O11m IHdpZHRoPSIxNSUiIHZhbG xtaq1xoQ7dEr5+PGNvbCB3 bCY0rJ9cDyNfQjZ9RAvbB2 49InRvcCIv Wliwr9pai7hfzEb8UrWzUJ QiojVjiLlwFII4e8SwAo89 M3SjlEtoi2CpMfq5sd54xG Hfb4E9lNV1 I0QkSZWzupbulSLrzVdyTH 5zMVTqkzbbFQCwuI8xFGTj N6b8InJoMbB3QDjkM3Pxmh O9YYHtbCJt WTpjBNS7G07hm4I8EWBqCI HpROS1hYD1yE3zwTzhrxpr bGVmdDsgdmVydGljYWwtYW lmI211YVQd kUplOQKitH0oQQRxeFWzeP ruVL2iESCgqgtoUofXHP5Z TiwgRUxJWkFCRVRIIEFOTj wvdGQ+PHRk RUP6bTagLUtzNDSilJ7hMO FaI7h8AiTpKuG9PNyhV5Ak LIMyvnxmKv97bB0jYzGmXp V6KLzrZ7Ke ndE5DCOaeDFcMMecPVR9I9 2kn7P3ULUnLCDrCDR5eIB5 kR7mkCtwzbymaOFioXlski VydGljYWwt MTlpB447FXTklUyfWzI5Hf BjIqK5RdQ1J7NyMnz8LYUv gPmbHX9paEEkYKvmKh4vsU jmwAvxMO2g LDDhhvxaLERizM4ePBJulF DdrXpxRV9jOYMflxtgy454 BnDpBIE0VCKawXDgI1RhsN 9yOiAjMDAw KFSaQ8VatWInYRkbS258ND llCrP6GRAofdTaV2AuKAUo dAxfUaC8z1Z4Zt50UDVEKA FyczwvdGQ+ MUPfSQJ6mQitZAfvYTRinZ 7wLPCmD6y7JlBaWvM0PAxj I4WbNKJednosVz19uN6iVq HeGdD3RTsj X5CkcxZ4MPKahNHvOPqdHC A7F93bz5T4BDXnYLDlXVD2 wAT6yB3ydOcpueuxuPRasS sgdmVydGlj SUgmNIstW587UWEbyRoxUk ZFTUFMRTwvdGQ+PHRkIHN0 qJgzTPsfYEAwnA7tEWUlB1 q8EcToVkB7 ENisX4FvGYRhesogCe05uR 1mMfHnCtO2LLwrD1JsnmG0 PYOxaDNnSRyyWYR8M88aw8 K6JEEkPQSg FEH8iXN3nJ5qgRphsjppwQ VmdDsgdmVydGljYWwtYWxp M658NUCwzMcbQnBkhHVJlY AwXBO4AR83 KZ03O5PsQipojQFwkWS+PH RhYmxlIHdpZHRoPScxMDAl DeAjcOyxYT8zXk1hIGZuQK NvbGxhcHNl NqFrj0ydFXShGKltRU6irI vcU5YscVQ3GKAbv9d6Pw77 A46oO2QxjFY+QOOliRY6wG R0uP4oSqHj AxP3YPweH192BdSpjUBoYg asr1cjf0obhSv0UgFsPLSf zsDqqHybOJN8s8WgFq20W3 9sIHdpZHRo KAEqZZKePMKxfArcvu5abU 9wIi8+CRIvtOF4dTF1rH9y LtIuDzN5AFumO886AqWzhS WhBtrrN58r G1FiyHD+WDDkPml5SDTeyQ wjNB7qxWVhEFazKb0nEGM1 RpZwCdOrKHhsH8FiIVXwbo ctcmlnaHQ6 ZANqECIvqN82Ho7rmQdrMz 7sUQMbZGD6NORoeGGcV7Is pM2yVqKbFYKxMCJpX8FtqX HrWCxpB412 GZraQgT0KSFqxhThW8VgHL XxwOujRdW7e3E4Hq2IuDaf fBHmWK1yCpTgGOb7T9NsSd k3HZJulIup FP8heJSoHXjcEa4fvBvejY atUT9dOVTcokjdq589XwAy j3jqCFVwsASbDPgdCGH2H2 7fj8L0OGUd ZFRhRQL2iFV8fW2mgAknvd ogbGVmdDsgdmVydGljYWwt BPybY756OQUwcPraItLAPo w4I3RiIhn5 PNCisQlaOP1ggAWsDCygQs 3tfSclkDhpAC5oNOCjnbjb d703ZgVlc8ryJQVdgDArZI ufMRS8M07f b7F9YUQcATXjBDK4nLV7mM 1hbGlnbjogbGVmdDsgdmVy kMzsMTqaRJnxA925JNChtM otJj4HJys1 K9MrFbj6UQQzlDpqMF1mzB UvMBgaUl7wpIedaRxyYB5u GOVlctogf421ReAnj5lkGH EwcHQgVGlt NFN2I40cc7V8EAIkBELaYF U3hZV5yF3pkDbovrawfKCm dDsgdmVydGljYWwtYWxpZ2 46IHRvcDsn PlBheWVyOjwvdGQ+PC90cj 76N7OnDcaeVbt5OOJrIKT7 pXM0bC1fRFGeYHgpg8Z5tM L2F7FkbbTn ci1 (more content not included)... [facility] Consent Formson 01-23-2021 Consent Forms [id number]#1.0 0[facility]IFF [facility] PACU Record [facility] PACU Record Summary Primary Physician: Hua Oglesby DO Finalized Date/Time: 01/23/21 13:00:07 Pt. Name: ALMA DELIA IKE MIGUEL Garduno/Sex: 1970 FEMALE Med Rec #: [id number] Physician: Hua Oglesby DO Financial #: [id number] Pt. Type: D Room/Bed: / Admit/Disch: 01/21/21 06:05:01 - 01/21/21 10:08:00 Institution: PACU Case Times MAGR Entry 1 In PACU I 01/21/21 08:20:00 Discharge from PACU 01/21/21 09:04:00 I Last Modified By: Lisa Connell RN 01/23/21 13:00:04 Finalized By: Lisa Connell RN Document Signatures Signed By: Lisa Connell RN 01/23/21 13:00 [facility] Consent Formson 01-22-2021 Consent Forms [id number]#1.0 [facility] Discharge Instructions [id number]#1.[address] [place] [address] Telemetry Stripson Telemetry Strips [id number]#1.0 [facility] Anesthesia Note Patient: [...] on: 01/21/2021 08:25 EST] Gen Jean MD [facility] Anesthesia Note Patient: IKE FLANNERY Age: [...] All Problems HTN (hypertension) / SNOMED CT 0538630848 / Confirmed Histories Family History: No family history items have been selected or recorded. Procedure history: Abdominal hysterectomy (831247303). Arthroscopy of knee (886379350). Lipoma (623333871). Comments: 01/04/2021 11:19 OSKAR Becker RN, Milana [...] Results ECG interpretation: Within normal limits. Plan [place] [employer]hes[employer]#(ASA ) physical status classification: Class II. Anesthetic Preoperative Plan Anesthesia: General. . Anesthetic plan, risks, benefits, and alternatives discussed with the patient and/or family. Patient verbalized understanding. Family/Guardian present. Informed consent was given. Consent was signed by the patient. [Electronically Signed on: 01/21/2021 07:10 EST] Gen Jean MD [Verified on: 01/21/2021 07:10 EST] Gen Jean MD Normal [facility] Inpatient Patient Summaryon 01-21-2021 [place]patient [place] [address] Patient Discharge Instructions Name: IKE FLANNERY : 1970 Patient Address: [address] [place] [address] Primary Care Provider: Name: RANDY CALLE After you are discharged if you find you have any questions, please, call [phone] ext [phone] to speak to a nurse. Discharge Diagnosis: [...] alcohol and/or drug addiction problems; contact the [facility] 22/09 Crisis Hotline -Text 4HOPE to 317758. If you received any narcotics, sedation, or [...] business decisions or sign any legal documents [facility] would like to thank you for allowing us to assist you with your healthcare needs. The following includes patient education materials and information regarding your injury/illness. IKE FLANNERY has been given the following list of follow-up instructions, prescriptions, and patient education materials: Follow-up Instructions With: Address: When: MYESHA VINSON [address] [place] [address], [address] [place] [address] Business (1) 01/30/2021 11:00 AM With: Address: When: RANDY CALLE [address] [place], [place] [address] [address] Business (1) Medications During the course of [...] or concerns, please call the office at [phone] Viruses or Bacteria What?s got you sick? [...] (except strep) (more content not included)... [facility] 01-21-2021 MAGR Intraoperative Record MAGR Intra-Op Record Summary Primary Physician: Hua Oglesby DO Finalized Date/Time: 01/21/21 11:10:34 Pt. Name: IKE FLANNERY/Sex: 1970 FEMALE Med Rec #: [id number] Physician: Hua Oglesby DO Financial #: [id number] Pt. Type: D Room/Bed: / Admit/Disch: 01/21/21 06:05:01 - 01/21/21 10:08:00 Institution: Case Times MAGR Entry 1 Patient In Room Time 01/21/21 07:22:00 Out Room Time 01/21/21 08:17:00 Anesthesia Start Time 01/21/21 07:23:00 Stop Time 01/21/21 08:18:00 Surgery Start Time 01/21/21 07:50:00 Stop Time 01/21/21 08:12:00 Last Modified By: Dorothy Serrano RN 01/21/21 08:21:08 Case Attendance MAGR Entry 1 Entry 2 Entry 3 Case Attendee Hua Oglesby Satya S MD Long, Barbara RN Andrew DO Role Performed Surgeon - Primary Anesthesiologist of Construction Ironworker Record Time In 01/21/21 07:22:00 01/21/21 07:22:00 01/21/21 07:22:00 Time Out 01/21/21 08:17:00 01/21/21 08:17:00 01/21/21 08:17:00 Procedure Arthroscopy Knee(Right) Arthroscopy Knee(Right) Arthroscopy Knee(Right) Last Modified By: Dorothy Serrano RN, Barbara RN Long, Barbara RN 01/21/21 08:21:11 01/21/21 08:21:11 01/21/21 08:21:11 Entry 4 Entry 5 Case Attendee Nemo Mendez CST, Regina CST Role Performed Scrub Personnel Engine Hostler Time In 01/21/21 07:22:00 01/21/21 07:22:00 Time Out 01/21/21 08:17:00 01/21/21 08:17:00 Procedure Arthroscopy Knee(Right) Arthroscopy Knee(Right) Last Modified By: Dorothy Serrano RN, Barbara RN 01/21/21 08:21:11 01/21/21 08:21:11 [...] or robotic assistance Last Modified By: Dorothy Serrano RN 01/21/21 08:21:36 Post-Care Text: O.730 The [...] of the procedure: Last Modified By: Dorothy Serrano RN 01/21/21 07:54:11 Post-Care Text: O.760 Patient [...] N/A imaging displayed? Last Modified By: Dorothy Serrano RN 01/21/21 07:54:47 Patient Positioning MAGR Pre-Care [...] Met (O.80) Yes Last Modified By: Dorothy Serrano RN 01/21/21 08:03:33 Post-Care Text: E.290 Evaluates [...] Agents (Im.270) Chlorhexidine Gluconate Prep By Dorothy Serrano RN and Alcohol Prep Area (Im.270) Knee and lower leg, Foot Prep Area Details Right Skin Prep Agent Dry Yes Without Pooling Hair Removal Syntegrity Hair Removal Methods No hair removal performed Outcome Met (O.100) Yes Last Modified By: Dorothy Serrano RN 01/21/21 07:55:36 Post-Care T (more content not included)... [facility]-21-[facility]21 MAGR Postoperative Record MAGR Phase II Record Summary Primary Physician: Hua Oglesby DO Finalized Date/Time: 01/21/21 10:17:55 Pt. Name: ALCONCHEN IKE ANN /Sex: 1970 FEMALE Med Rec #: [id number] Physician: Hua Oglesby DO Financial #: [id number] Pt. Type: D Room/Bed: / Admit/Disch: 01/21/21 [...] Signed By: Marianna Gerber RN 01/21/21 10:17 [facility] 1 03-23-2020 MAGR Preoperative Record MAGR Pre-Op Record Summary Primary Physician: Hua Oglesby DO Finalized Date/Time: 01/21/21 08:40:07 Pt. Name: IKE FLANNERY MIGUEL RosenO.B./Sex: 1970 FEMALE Med Rec #: [id number] Physician: Hua Oglesby DO Financial #: [id number] Pt. Type: D Room/Bed: / Admit/Disch: 01/21/21 [...] By: Gino Painter RN 01/21/21 08:40 Normal [facility] Operative Report - Surgeon/P aster 01-21-2021 [...] on: 01/21/2021 10:16 EST] Hua Oglesby DO [facility] Patient Handouton 01-21-[address] [...] or concerns, please call the office at [phone] Normal [facility] METABOLIC PANE [facility] 01-12-2021 Albumin [Mass/Vol] 4.3 g/dL Normal 3.6-5.1 [facility] Comment on above: Performed By: #### 7 600, [id number] #### [facility] [place] [address] Tab Machine Operator: Heraclio Miller MD Albumin/Globulin [Mass ratio] 1.8 {ratio} Normal 1.0-2.5 [facility] Comment on above: Performed By: #### 7 600, [id number] #### [facility] [place] [address] Tab Machine Operator: Heraclio Miller MD ALP [Catalytic activity/Vol] 60 U/L Normal 37-153 [facility] Comment on above: Performed By: #### 7 600, [id number] #### [facility] [place] [address] Tab Machine Operator: Heraclio Miller MD ALT [Catalytic activity/Vol] 17 U/L Normal 6-29 [facility] Comment on above: Performed By: #### 7 600, [id number] #### [facility] [place] [address] Tab Machine Operator: Heraclio Miller MD AST [Catalytic activity/Vol] 18 U/L Normal 10-35 [facility] Comment on above: Performed By: #### 7 600, [id number] #### [facility] of [address], [address] [place] [address] Tab Machine Operator: Heraclio Miller MD Bilirubin [Mass/Vol] 1.1 mg/dL Normal 0.2-1.2 [facility] Comment on above: Performed By: #### 7 600, 95102 #### [facility] of [address], [address] [place] [address] Tab Machine Operator: Heraclio Miller MD BUN/CREATININE RATIO NOT APPLICABLE Normal 6-22 [facility] Comment on above: Performed By: #### 7 600, [id number] #### [facility] of [address], [address] [place] [address] Tab Machine Operator: Heraclio Miller MD Calcium [Mass/Vol] 9.3 mg/dL Normal 8.6-10.4 [facility] Comment on above: Performed By: #### 7 600, 43253 #### [facility] of [address], [address] [place] [address] Tab Machine Operator: Heraclio Miller MD Chloride [Moles/Vol] 105 mmol/L Normal 98-110 [facility] Comment on above: Performed By: #### 7 600, 24322 #### [facility] of [place] [address] Tab Machine Operator: Heraclio Miller MD CO2 [Moles/Vol] 28 mmol/L Normal 20-32 [facility] Comment on above: Performed By: #### 7 600, 99306 #### [facility] of [address], [address] [place] [address] Tab Machine Operator: Heraclio Miller MD Creatinine [Mass/Vol] 0.86 mg/dL Normal 0.50-1.[address] [facility] Comment on above: Result Comment: For patients >49 years of age, the reference limit for Creatinine is approximately 13% higher for people identified as -[place]. Performed By: #### 7 600, [id number] #### [facility] [address], [address] [place] [address] Tab Machine Operator: Heraclio Miller MD eGFR NON-AFR. BRUNEIAN 79 mL/min/1.73m2 Normal > OR = 60 [facility] Comment on above: Performed By: #### 7 600, 38719 #### [facility] of [place] [address] Tab Machine Operator: Heraclio Miller MD GFR/1.73 sq M.predicted among blacks MDRD (S/P/Bld) [Vol rate/Area] 91 mL/min/{1.73_m2} Normal > OR = 60 [facility] Comment on above: Performed By: #### 7 600, [id number] #### [facility] of [place] [address] Tab Machine Operator: Heraclio Miller MD Globulin (S) [Mass/Vol] 2.4 g/dL Normal 1.9-3.7 [facility] Comment on above: Performed By: #### 7 600, 73398 #### [facility] of [address], [address] [place] [address] Tab Machine Operator: Heraclio Miller MD Glucose [Mass/Vol] 86 mg/dL Normal 65-139 [facility] Comment on above: Result Comment: Non-fasting reference interval Performed By: #### 7 600, 53558 #### [facility] [place] [address] Tab Machine Operator: Heraclio Miller MD Potassium [Moles/Vol] 3.9 mmol/L Normal 3.5-5.[address] [facility] Comment on above: Performed By: #### 7 600, 72896 #### [facility] of [place] [address] Tab Machine Operator: Heraclio Miller MD Protein [Mass/Vol] 6.7 g/dL Normal 6.1-8.1 [facility] Comment on above: Performed By: #### 7 600, 87706 #### [facility] [place] [address] Tab Machine Operator: Heraclio Miller MD Sodium [Moles/Vol] 140 mmol/L Normal 135-146 [facility] Comment on above: Performed By: #### 7 600, 49385 #### [facility] [address], [address] [place] [address] Tab Machine Operator: Heraclio Miller MD Urea nitrogen [Mass/Vol] 15 mg/dL Normal 7-25 [facility] Comment on above: Performed By: #### 7 600, 94811 #### [facility] [address], [address] [place] [address] Tab Machine Operator: Heraclio Miller MD LIPID PANEL, [facility] 11-1 Cholesterol [Mass/Vol] 173 mg/dL Normal <200 [facility] Comment on above: Order Comment: FASTI NG:NO FASTING: NO Performed By: #### 7 600, 36868 #### [facility] [address], [address] [place] [address] Tab Machine Operator: Heraclio Miller MD Cholesterol in HDL [Mass/Vol] 69 mg/dL Normal > OR = 50 [facility] Comment on above: Order Comment: FASTI NG:NO FASTING: NO Performed By: #### 7 600, 53996 #### [facility] [place] [address] Tab Machine Operator: Heraclio Miller MD Cholesterol in [...] LDL-C. Campos CAMARENA et al. MARQUISE. 2013;310(19): 4994-4316 ([email or web address] [email or web address]/[email or web address]) Performed By: #### 7 600, 02051 #### [facility] [address], [address] [place] [address] Tab Machine Operator: Heraclio Miller MD Cholesterol.total/Cho lesterol in HDL [Mass ratio] 2.5 {ratio} Normal <5.0 [facility] Comment on above: Order Comment: FASTI NG:NO FASTING: NO Performed By: #### 7 600, 79700 #### [facility] [address], [address] [place] [address] Tab Machine Operator: Heraclio Miller MD NON HDL CHOLESTEROL 104 mg/dL (calc) Normal <130 [facility] Comment on above: Order Comment: FASTI NG:NO FASTING: NO Result Comment: For patients with diabetes plus 1 major ASCVD risk factor, treating to a non-HDL-C goal of <100 mg/dL (LDL-C of <70 mg/dL) is considered a therapeutic option. Performed By: #### 7 600, 56351 #### [facility] [place] [address] Tab Machine Operator: Heraclio Miller MD Triglyceride [Mass/Vol] 68 mg/dL Normal <150 [facility] Comment on above: Order Comment: FASTI NG:NO FASTING: NO Performed By: #### 7 600, 77732 #### [facility] [place] [address] Tab Machine Operator: Heraclio Miller MD Coding Summaryon 01-09-2021 Coding Summary [facility] QswccoxeLGi6hXs+PGhlYW Q+PO7AQRLyB44ycKZiaK4D D4bEWT1QOOUEMYSBJM8UML 4mxTN4VKhbB5IsrfLt MzuzkJIjTP33UPt0DUU8hR qvLAhypG7jlWTaW3z0QxLg PP29gC01CYaxHNAzWxL6Wy ZpbjsgbWFy Y5baUgPenGYuSaj+PHRhYm xlIHdpZHRoPScxMDAlJyBz oIusTK5rDp0yVYZjPKQhrD xhcHNlOiBj n2uvEISuXDjhPF9akZouX7 VypHO7KGViy6x5Tn43iIZ+ KVVdETW0mAdhPQqox998Ir Hll0bwAII2 pFDcEQbnMTV2J62qr7K0QD AjHMLvUZH1hYI8nW0rdQpj ewnsH6SnaSNlCpV3HEU6fM IfeE3jtSki msdtxB7cCva+W31HJP1BPS UWRE4HIvr2S8IcOfrxcZP+ OD61HPUkWB85lCPamRTxy7 iwiVa8VnRl LXLwPYJ9dJltDNofs3YoMF GjV60yvAYqc4X9YQHahNea hKZlAxJtuHX6uM9gTIngma ivh5wjyhjq Capbx8tuev18bR12A35cHW hmPSDmZLI6PANuHUJoxXtz xs1ofE1oDr6+VPmos9pww2 hucQf7GwOr ARTxasAmzJhlHMN1k0GyNz 17W1HpwGdre4BoFal2qj79 cCNrb5R1yYX8YXleBOEbzG 0aCJtyKtF6 KYFrFkGnoG60lBHsEJcmYf 0ioUkivFoyHQ7zGVZmmvnm CCXtsU1hSCTdyTPeuMvpFP 4wNTBpbjtm g628EuAnYDY2UKFjzQVmY3 NiwU7kAuBpDOJyKVPnO1Qn nGSkMOaaT738TKrxGpZ3KL MkwqBdH2Vo VYAjaBkeQsD8e8A6Yb0Pv7 AtcxbeJCX8UUsdKSZtSwDp GpTxNoN2Z9QsBnu2YVRxoH tkBS1uP3Xg BAFwybxldaudsQH7YOUfZM EolJ57dIOvQGgmKe9bn5J6 m552CAQwWCSlqS48Uv2plU ogMTBwdCBU mB6wbbapz3uhugshXcVfXM CdRCc7WSm5JPJliMprKkEn PAI4HoD1GCM5pVKsuO3zhC csbhbutW9a Oyc+I38jtD7fNYB6UJJ3cg xqXQRwgeGrAU07XJ54Y8Ld PjwvdGFibGU+PGRpdiBzdH aeKR6gMyKf y6eeb0DeEHtpU7JdETYuZH ixRim1PQRnXDA0jGO5nJ5z MOXtUKoyj7F8cTH2T4Wpkk Azan9on8ce LXZeLQsoW66bxHXkh2P1JU VaxBD5ADLhiQnoHyPdfC55 Oyc+COMbxAdra7OwNfcgl7 ekk1bqtTp8 YnQxCIXxvhXhrRczVFK7a9 UiQf06Q00sGZplGXImXFDy NZUtWFMvtSxmfk5ilI4fHe 8+PGNvbCB3 xVJ1gQ4yBAHvQeP5XDcqQ8 21ZdVlaYMvMeqfk7feb8oy eIs5HkEkLFNedaXyoMmlGA O3k2FqHc21 H22wUBwkFENdFOTfVFGbZA PrzXzvpr5klV2mPd3+PC9j p7sorz35sW70eFP+PHRkIH P1bLsePBrn HBLxtX3lDElzYmK7NKJyEh QrnR31dOYnVHmeVt5orTxv yUwqMX5zMZWyabnes238Cf Yha3jpONCx cJQpUSslFQK0H25jd5A7TG AeGIBkPRJ9zMI3pO3jeNkx bjogbGVmdDsgdmVydGljYW meSJzuB820 IHRvcDsnPlBhdGllbnQgTm QsILq9T0ShUmh6EVIpyOrr WY3mnVYaXDoiTb6jgHtdfH iuMI1gWMAe hsdek387ZpBpc9paJCLekI MbFFowAEV7F69vy6G9UANh JISgQMS7jKK7zU8wgYnesp ogbGVmdDsg xqSgpVprNOhpGRifF055NT RvcDsnPkJpcnRoIERhdGU6 QG95TC16hFVhd5P5iOX7O0 BhZGRpbmct dpozeKS7FCUfULZqcA90Su 0dnAczDo3rBUZyCCL4GTJb vFDeT1BnkB5wPaGqXWMvHL JiT7IbgAOg YYclF738CPcgCoS5WDWciu RpJ8JhAGMbpCmqJhU0v8E8 Vt3YP3O0XH54JO16bZCkk0 U4dEM9N9Ce BYQujrmugdkskBQ2UVJgXP SdnJ39Wc8bcFruCv2wZKTk PJW5KASafRRkW3IzzV8eKu AjMDAwMDAw B6MftJGsYNouO160UHpbVc K3OFChjeKzQ8HrSCRelMan XqC3i0L0Hl2KELy4VB77HB 26aEDma9N8 vPS6V6ZzOZJdyubdzyicwA G9YRFgMHHeaL14Lf6ckJan Hy9iRZQdJJK8IWYnwHGpP5 RayO9xXpDf VMBrYDDfB3MkySLzKAuqJ2 01JYkaCxM0NZHztyFhU5Cc OENumFndOyR3v5E4Tq2QPG JbBB37OZU4 oPH2XS92MR90H0LaNjtftZ FibGU+PHRhYmxlIHdpZHRo KNoqVQRnFzMccJwkJJ3lLj 9yZGVyLWNv iXmluGUyEqDfu1cdLOCbXN nsRV3ooDgfZ2JljWK2UMFu z0m4Mm91S33gT7BhfPS+PG OfqML3cSS7 uF2ySeOrDoA2IYlaS016Ht JgtYKbDwgdy0pyk7xgjGo5 EmX4TZTwpsIufJxfQEA2p7 PrIn88Z27u IHdpZHRoPSIxNSUiIHZhbG mxaa3nqZ0lIy9+PGNvbCB3 nNC9eW2jFiUsQiS8CZieY8 49InRvcCIv Yxrto4ybn1fmfVe1DgIqLJ AwlpDxlZlzUWX4m0NoJb12 S3OllAekv2KhIzv3vn32dZ Tdd1V8oEC3 S2MeILTwnkulxBMytAjxTP 7lBWMncgdyILPksT5jXYSr U1e4VpAyKaD4RIbcA2Vrxo K4CEBqxLNh SNzvVEM5O70qz9B4QKXlWF JzGGP3nCO5iE4ajTslxcsd bGVmdDsgdmVydGljYWwtYW fdD637KMIp ySuaVABdlS4iTQLdfEDumZ jjXB2eUQXhtoyaJhjEVC9B TiwgRUxJWkFCRVRIIEFOTj wvdGQ+PHRk TUZ3oBjlYGgoXKQhuM3pYN GqL8h5QlPeJaS7KQkyE7Ww JOOnwbgzHd52xP5zDlIhGf F8GEjnQ7Cz lrC6YBEetOSnXZhoRON0K1 4zy1E2BFYwHYYeJFA8cIR7 tI2fnMrbeqxzjEJwyRpgwr VydGljYWwt OFegJ414QUHniRhwBmH4Qz IlZpB7AiK4J0MjXne1ZJFg fVelLT7rrFRlTGssFo1ffH ezsVmuEZ0w MGUtivjzJYPftJ2pTXHaqO QfsCzvEE3oPBXlsbugy434 CtCsHDL0UPEmcTXvD3MsbB 9yOiAjMDAw THBzN3RazEMyNVmuK715QR ohIoZ6XTQfmbFhJ0MvFAFn xXinMpH4t4N9Yu28KTKJAF FyczwvdGQ+ WGJdVBV3xGnmBSkwSVGifG 4zGJPxE7e6EaSbQuH0NJvj F3IzOOVegtifBp87fS4qQx WhKyZ2WWso V2BsyrE1FZWkyVWfBHivDW Y1Y80lh9Z6PNTiDWAsPXV0 aHH0wC6mmXzteadurNOtqA sgdmVydGlj QEpdLJboM356AWIveOdwAu ZFTUFMRTwvdGQ+PHRkIHN0 kXgyNBrjWQKfnQ0mHPYdC8 z4HtLfAgJ1 MJmdG6HuXLXsuwejRr96uM 4lWbFdEmM9JTloF2DilvI0 SFWhuFVuLFvaFNW5D37rd2 N0TPPyPSFv NYX7pZI3hS3dtMowgjactA VmdDsgdmVydGljYWwtYWxp P874XQFhnOavNi0FQG21PU 97P4AdSjjx dGFibGU+PHRhYmxlIHdpZH GyIWfdNHWbUhWjyRhqYC3g Ai0bMLLbMOAslTyqhEYjJw Ion4otXFQs QXjvCC8gnAegU3HutWG5HX Hti1w5Jb80L48sA3VycBK+ SLGcnOB9hJT1wL6bHvPfAz P6TYlmX933 ZsFrcHYuDzvrm7biy3dujI d6XtXuMQBdjeOjzMhnQVV4 t6EpRs09Q42iWIfgRRBtCV IyMCUiIHZh mStfvm2dxN1rVx3+PGNvbC X6hVN5jD0uLmOrRoO8NHsy V548AzRojPArLywaE17lH1 JvdXA+PHRy Rzh2FFMyqBaqIG1abLDeDV sgAr7xUKP2FqAtKoYhIWcd O6JqOMHdnnfwcvcjwAN1PU CfSVOezY83 Cf2zwJobGd7mWIFtWLK3MC LtoFApR0XxzK5jKoViIOWd YMLzN5ZjvQYzDYqsV057OO yaLwC7LGYd bjMyH4TbQTVrbAbvBpB7m3 I6Mr0SaAhirKSdCK3nEoHy ZBi1S1UeYkl5NNRkqQybQB 0ncGFkZGlu Kh9mgVdhsLqgMQ7vEVXzyi kac520MqIrp2tgWIQauVLf DBlsOUT0D56ty1K2SRGuFO BnMBE0kJR7 dT6dpVzboxatuFIwiSzohs StbGxpGWohBAnzH391QTZk gQltStQBOfc0T6HbCfj8VB UqfFmwIN1y rWYsNWomWt4icCyrkHfeLN 8mEECakdfke713NiWgz9mf ZAGafXHmQKkzBPM2Y55yo2 J0HUFjYOZk EIC3xRA0eQ3keOqaysjtvT VmdDsgdmVydGljYWwtYWxp G413AGVadWipHe0JLtm7P2 IoKah0NTEp cNdwHE0slIAbIGycNe6bvE vpwDkfUQ4fYACgpsbuz535 IeXeo2saQYJsyMLaOHlsYI R0V68yc1M6 QNMvFDZjJAF3aCZ9mO3mbY lnbjogbGVmdDsgdmVydGlj OShfSCwtP651UFDgiWuxIs BheWVyOjwv dGQ+FH96sg52T4AnLlwzBy p4QOOqHHG8nTU8vW0cIHSl YIzzz0G6yUK7Q5YgdxVfeo 2af3itFQIy ZTo (more content not included)... [facility] Consent Formson 01-08-2021 Consent Forms [id number]#1.0 0OTGTIFF [facility] Progress Note - Nurseon Progress Note - Nurse PAT review for 01-21-2021 surgery reviewed per anesthesiologist, Dr. Gutierrez- no additional orders received. [Electronically Signed on: 01/07/2021 14:24 EST] Elvira Navarro RN [Verified on: 01/07/2021 14:24 EST] Elvira Navarro RN Normal [facility] .Auto Diff 1on 01-04-2021 Auto Hitchcock % 8 % Normal 1-12 [facility] Comment on above: Performed By: #### 1 [id number], [id number], [id number] ####[facility] (DEFAULT)[address] [place] [address]1476 Baso Abs# 0.1 x10 Normal 0.0-0.2 [facility] Comment on above: Performed By: #### 1 [id number], [id number], [id number] ####[facility] (DEFAULT)[address] [place] [address] 00231 Basophils/100 WBC (Bld) 1.2 % Normal 0.2-2.0 [facility] Comment on above: Performed By: #### 1 [id number], [id number], [id number] ####[facility] (DEFAULT)[address] [place] [address] 60302 Eos Abs# 0.3 x10 Normal 0.0-0.4 [facility] Comment on above: Performed By: #### 1 [id number], [id number], [id number] ####[facility] (DEFAULT)[address] [place] [address] 78703 Eosinophils/100 WBC (Bld) 3.6 % Normal 0.9-4.0 [facility] Comment on above: Performed By: #### 1 [id number], [id number], [id number] ####[facility] (DEFAULT)[address] [place] [address] 29214 Lymph Abs# 2.6 x10 Normal 1.3-2.9 [facility] Comment on above: Performed By: #### 1 [id number], [id number], [id number] ####[facility] (DEFAULT)[address] [place] [address] Lymphocytes/100 WBC (Bld) 34 % Normal 14-48 [facility] Comment on above: Performed By: #### 1 [id number], [id number], [id number] ####[facility] (DEFAULT)[address] [place] [address] Hitchcock Abs# 0.6 x10 Normal 0.0-0.8 [facility] Comment on above: Performed By: #### 1 [id number], [id number], [id number] ####[facility] (DEFAULT)[address] [place] [address] Neut Abs# 3.9 x10 Normal 1.5-9.2 [facility] Comment on above: Performed By: #### 1 [id number], [id number], [id number] ####[facility] (DEFAULT)[address] [place] [address] Neutrophils/100 WBC (Bld) 53 % Normal 44-88 [facility] Comment on above: Performed By: #### 1 [id number], [id number], [id number] ####[facility] (DEFAULT)[address] [place] [address] Standardon 01-04-2021 eGFR Non AA >60 Invalid Interpretation Code [facility] Comment on above: Performed By: #### 1 [id number], [id number], [id number] ####[facility] (DEFAULT)[address] [place] [address] eGFR AA >60 Invalid Interpretation Code [facility] Comment on above: Result Comment: Pollution Control Chemist medina Kidney disease could be indicated at eGFRs of less than 60 ml/min/1.73m2. Kidney Failure is indicated at less than 15 ml/min/1.73m2 Performed By: #### 1 [id number], [id number], [id number] ####[facility] (DEFAULT)[address] [place] [address] Anion gap [Moles/Vol] 12.0 mmol/L Normal 5.0-19.0 [facility] Comment on above: Performed By: #### 1 [id number], [id number], [id number] ####[facility] (DEFAULT)[address] [place] [address] 11935 Calcium [Mass/Vol] 9.5 mg/dL Normal 8.9-10.3 [facility] Comment on above: Performed By: #### 1 [id number], [id number], [id number] ####[facility] (DEFAULT)[address] [place] [address] 35542 Chloride [Moles/Vol] 102 mmol/L Normal 101-111 [facility] Comment on above: Performed By: #### 1 [id number], 9194870, [id number] ####[facility] (DEFAULT)[address] [place] [address] 60689 CO2 [Moles/Vol] 27 mmol/L Normal 21-32 [facility] Comment on above: Performed By: #### 1 [id number], [id number], [id number] ####[facility] (DEFAULT)[address] [place] [address] 27168 Creatinine [Mass/Vol] 0.77 mg/dL Normal 0.60-1.30 [facility] Comment on above: Performed By: #### 1 [id number], 8660463, [id number] ####[facility] (DEFAULT)[address] [place] [address] 84609 Glucose [Mass/Vol] 88.0 mg/dL Normal 74.0-118.0 [facility] Comment on above: Performed By: #### 1 [id number], 7342437, [id number] ####[facility] (DEFAULT)[address] [place] [address] 63561 Osmolality 275 mOsm/L Invalid Interpretation Code [facility] Comment on above: Performed By: #### 1 [id number], 7361281, [id number] ####[facility] (DEFAULT)[address] [place] [address] 69975 Potassium [Moles/Vol] 3.4 mmol/L Low 3.6-5.1 [facility] Comment on above: Performed By: #### 1 [id number], 3587096, [id number] ####[facility] (DEFAULT)[address] [place] [address] 74758 Sodium [Moles/Vol] 138.0 mmol/L Normal 136.0-144.0 [facility] Comment on above: Performed By: #### 1 [id number], 1293306, [id number] ####[facility] (DEFAULT)[address] [place] [address] Urea nitrogen [Mass/Vol] 13 mg/dL Normal 8-26 [facility] Comment on above: Performed By: #### 1 [id number], [id number], 85242799 ####[facility] (DEFAULT)[address] [place] [address] Urea nitrogen/Creatinine [Mass ratio] 17.0 mg/mg High 4.6-16.2 [facility] Comment on above: Performed By: #### 1 [id number], 8768193, [id number] ####[facility] (DEFAULT)[address] [place] [address] CBC w/ Auto Diffon Erythrocyte distribution width (RBC) [Ratio] 13.7 % Normal 11.5-15.0 [facility] Comment on above: Performed By: #### 1 [id number], 5172413, [id number] ####[facility] (DEFAULT)[address] [place] [address] Hematocrit (Bld) [Volume fraction] 37.5 % Normal 33.7-40.4 [facility] Comment on above: Performed By: #### 1 [id number], 5985209, 83760937 ####[facility] (DEFAULT)[address] [place] [address] 22809 Hemoglobin (Bld) [Mass/Vol] 11.7 g/dL Normal 11.3-15.9 [facility] Comment on above: Performed By: #### 1 [id number], 0676371, 85672164 ####[facility] (DEFAULT)[address] [place] [address] Instr WBC 7.4 x10 Invalid Interpretation Code [facility] Comment on above: Performed By: #### 1 [id number], 9731707, [id number] ####[facility] (DEFAULT)[address] [place] [address] Man Diff? Auto Normal [facility] Comment on above: Performed By: #### 1 [id number], [id number], [id number] ####[facility] (DEFAULT)[address] [place] [address] MCH (RBC) [Entitic mass] 26 pg Normal 24-34 [facility] Comment on above: Performed By: #### 1 [id number], [id number], [id number] ####[facility] (DEFAULT)[address] [place] [address] MCHC (RBC) [Mass/Vol] 31 g/dL Normal 26-37 [facility] Comment on above: Performed By: #### 1 [id number], 7364560, [id number] ####[facility] (DEFAULT)[address] [place] [address] MCV (RBC) [Entitic vol] 84 fL Normal 81-100 [facility] Comment on above: Performed By: #### 1 [id number], [id number], [id number] ####[facility] (DEFAULT)[address] [place] [address] Platelet 393 x10 Normal 138-427 [facility] Comment on above: Performed By: #### 1 [id number], [id number], [id number] ####[facility] (DEFAULT)[address] [place] [address] 21809 Platelet mean volume (Bld) [Entitic vol] 9.7 fL Normal 6.3-10.2 [facility] Comment on above: Performed By: #### 1 [id number], 8871282, [id number] ####[facility] (DEFAULT)[address] [place] [address] 44857 RBC 4.48 x10 Normal 3.70-5.30 [facility] Comment on above: Performed By: #### 1 [id number], [id number], [id number] ####[facility] (DEFAULT)[address] [place] [address] WBC 7.4 x10 Normal 3.5-10.5 [facility] Comment on above: Performed By: #### 1 [id number], [id number], [id number] ####[facility] (DEFAULT)[address] [place] [address] CULTURE, URINE, ROUTINEon CULTURE, URINE, ROUTINE SEE NOTE Abnormal [facility] Comment on above: Result Comment: CULTURE, URINE, ROUTINE Micro Number: [id number] Test Status: Final Specimen Source: Not given [...] By: #### 3 95 #### [facility] [address], [address] [place] [address] Tab Machine Operator: Heraclio Miller MD Vital Signs Date Time Vital Sign Value Performing Clinician Facility 10-26-2024 13:53-0400 Body height 180.3 cm Marisela Cuevas [employer] Work Phone: [facility] 10-26-2024 13:53-0400 Body temperature 97.5 [degF] Marisela Cuevas [employer] ASSISTANT MA[employer] Work Phone: [facility] 10-26-2024 13:53-0400 Diastolic blood pressure 81 mm[Hg] Marisela Cuevas [employer] ASSISTANT MA[employer]GER[employer] Work Phone: [facility] 10-26-2024 13:53-0400 Heart rate 80 /min Marisela Cuevas [employer] ASSISTANT MA[employer]GER[employer] Work Phone: [facility] 10-26-2024 13:53-0400 Respiratory rate 16 /min Marisela Cuevas [employer] ASSISTANT MA[employer]GER[employer] Work Phone: [facility] 10-26-2024 13:53-0400 Systolic blood pressure 134 mm[Hg] Marisela Cuevas [employer] ASSISTANT MA[employer]GER[employer] Work Phone: [facility] 10-05-2024 13:28-0400 Body temperature 97.39 [degF] Marisela Cuevas [employer] ASSISTANT MANAGER[employer] Work Phone: [facility] 10-05-2024 13:28-0400 Diastolic blood pressure 86 mm[Hg] Marisela Cuevas [employer] ASSISTANT MANAGER-[employer]ER Work Phone: [facility] 10-05-2024 13:28-0400 Heart rate 77 /min Marisela Cuevas [employer] ASSISTANT MANAGER-PL[employer] CONDITIONER Work Phone: [facility] 10-05-2024 13:28-0400 Respiratory rate 15 /min Marisela Cuevas [employer] ASSISTANT MANAGER-PL[employer] CONDITIONER Work Phone: [facility] 10-05-2024 13:28-0400 Systolic blood pressure 116 mm[Hg] Marisela Cuevas [employer] ASSISTANT MANAGER-PL[employer] CONDITIONER Work Phone: [facility] 09-16-2024 08:57-0400 Body temperature 97.39 [degF] Geno Bittikofer RESTAURANT ASSISTANT MANAGER.PLATE CONDITIONER Work Phone: [facility] 09-16-2024 08:57-0400 Diastolic blood pressure 90 mm[Hg] Geno Bittikofer RESTAURANT ASSISTANT MANAGER.PL[employer] CONDITIONER Work Phone: [facility] 09-16-2024 08:57-0400 Heart rate 84 /min Geno Bittikofer RESTAURANT ASSISTANT MANAGER.PLATE CONDITIONER Work Phone: [facility] 09-16-2024 08:57-0400 SaO2% (BldA) [Mass fraction] 100 % Geno Bittikofer RESTAURANT ASSISTANT MANAGER.PLATE CONDITIONER Work Phone: [facility] 09-16-2024 08:57-0400 Systolic blood pressure 136 mm[Hg] Geno Bittikofer RESTAURANT ASSISTANT MANAGER.PLATE CONDITIONER Work Phone: [facility] 09-16-2024 07:23-0400 Body mass index (BMI) [Ratio] 28.88 kg/m2 Alessandra Colemanf RESTAURANT ASSISTANT MANAGER.PLATE CONDITIONER Work Phone: [facility] 09-16-2024 07:23-0400 Body temperature 98.1 [degF] Alessandra Dennisopf RESTAURANT ASSISTANT MANAGER.PLATE CONDITIONER Work Phone: [facility] 09-16-2024 07:23-0400 Body weight 91.3 kg Alessandra Syed RESTAURANT ASSISTANT MANAGER.PLATE CONDITIONER Work Phone: [facility] 09-16-2024 07:23-0400 Diastolic blood pressure 92 mm[Hg] Alessandra Dennisopf RESTAURANT ASSISTANT MANAGER.PLATE CONDITIONER Work Phone: [facility] 09-16-2024 07:23-0400 Heart rate 78 /min Alessandra Colemanf RESTAURANT ASSISTANT MANAGER.PLATE CONDITIONER Work Phone: [facility] 09-16-2024 07:23-0400 Respiratory rate 18 /min Alessandra Colemanf RESTAURANT ASSISTANT MANAGER.PLATE CONDITIONER Work Phone: [facility] 09-16-2024 07:23-0400 SaO2% (BldA) [Mass fraction] 100 % Alessandra Syed RESTAURANT ASSISTANT MANAGER.PLATE CONDITIONER Work Phone: [facility] 09-16-2024 07:23-0400 Systolic blood pressure 149 mm[Hg] Alessandra Syed RESTAURANT ASSISTANT MANAGER.PLATE CONDITIONER Work Phone: [facility] 09-08-2024 09:52-0400 Body temperature 98.6 [degF] Shereen Janeaux PA-C [facility] [employer] [facility] 09-08-2024 09:52-0400 Diastolic blood pressure 85 mm[Hg] Shereen Castilloreaux PA-C Work Phone: [facility] 09-08-2024 09:52-0400 Heart rate 79 /min Shereen Smallwood PA-C Work Phone: [employer] [facility] 09-08-2024 09:52-0400 Respiratory rate 16 /min Shereen Castilloreaux PA-C Work Phone: [employer] [facility] 09-08-2024 09:52-0400 Systolic blood pressure 125 mm[Hg] Shereen Castilloreaux PA-C Work Phone: [employer] [facility] 09-07-2024 09:26-0400 Diastolic blood pressure 82 mm[Hg] [employer] Work Phone: [facility] 09-07-2024 09:26-0400 Heart rate 63 /min [employer] Work Phone: [facility] 09-07-2024 09:26-0400 SaO2% (BldA) [Mass fraction] 100 % [employer] Work Phone: [facility] 09-07-2024 09:26-0400 Systolic blood pressure 136 mm[Hg] [employer] Work Phone: [facility] 08-18-2024 15:41-0400 Body temperature 97.81 [degF] Shereen Janeaux PA-C Work Phone: [facility] [employer] [facility] 08-18-2024 15:41-0400 Diastolic blood pressure 82 mm[Hg] Shereen Smallwood PA-C Work Phone: [facility] [employer] [facility] 08-18-2024 15:41-0400 Heart rate 93 /min Shereen Selin PA-C Work Phone: [facility] [employer] 08-18-2024 15:41-0400 Respiratory rate 16 /min Shereen Selin PA-C Work Phone: [facility] [employer] [facility] 08-18-2024 15:41-0400 Systolic blood pressure 118 mm[Hg] Shereen Selin PA-C Work Phone: [facility] [employer] [facility] 08-10-2024 16:37-0400 Diastolic blood pressure 60 mm[Hg] Dhruv Jacobs DO Work Phone: [facility] [employer] [facility] 08-10-2024 16:37-0400 Systolic blood pressure 100 mm[Hg] Dhruv Margarethas DO Work Phone: [facility] [employer] [facility] 08-10-2024 15:51-0400 Body height 177.8 cm Dhruv Robleshas DO Work Phone: [facility] [employer] [facility] 08-10-2024 15:51-0400 Body mass index (BMI) [Ratio] 28.04 kg/m2 Dhruv Margarethas DO Work Phone: [facility] 08-10-2024 15:51-0400 Body temperature 98.01 [degF] Dhruv Yuhas DO Work Phone: [facility] 08-10-2024 15:51-0400 Body weight 88.63 kg Dhruv Yuhas DO Work Phone: [facility] 08-10-2024 15:51-0400 Heart rate 98 /min Dhruv Margarethas DO Work Phone: [facility] [employer] 08-10-2024 15:51-0400 Respiratory rate 20 /min [facility]ru[facility] DO [facility] 08-10-2024 15:51-0400 SaO2% (BldA) [Mass fraction] 99 % Dhruv White DO [facility] 08-08-2024 09:30-0400 Body temperature 97.11 [degF] Shereen Smallwood PA-C Work Phone: [facility] 08-08-2024 09:30-0400 Diastolic blood pressure 86 mm[Hg] Shereen Smallwood PA-C [facility] 08-08-2024 09:30-0400 Heart rate 78 /min Shereen Smallwood PA-C Work Phone: [facility] 08-08-2024 09:30-0400 Respiratory rate 15 /min Shereen Smallwood PA-C Work Phone: [facility] 08-08-2024 09:30-0400 Systolic blood pressure 126 mm[Hg] Shereen Smallwood PA-C Work Phone: [facility] 08-03-2024 09:31-0400 Body height 177.8 cm Shereen Smallwood PA-C [facility] 08-03-2024 09:31-0400 Body mass index (BMI) [Ratio] 27.58 kg/m2 Shereen Smallwood PA-C Work Phone: [facility] 08-03-2024 09:31-0400 Body temperature 97.5 [degF] Shereen Smallwood PA-C Work Phone: [facility] 08-03-2024 09:31-0400 Body weight 87.2 kg Shereen Smallwood PA-C [facility] 08-03-2024 09:31-0400 Diastolic blood pressure 88 mm[Hg] Shereen Rodriguezudreaux PA-C [facility] 08-03-2024 09:31-0400 Heart rate 76 /min Shereen Selin PA-C Work Phone: [facility] 08-03-2024 09:31-0400 Respiratory rate 16 /min Shereen Selin PA-C Work Phone: [facility] 08-03-2024 09:31-0400 Systolic blood pressure 138 mm[Hg] Shereen Selin PA-C Work Phone: [facility] 07-19-2024 07:57-0400 Body temperature 96.8 [degF] Krystin Barillas MD Work Phone: [facility] 07-19-2024 07:57-0400 Body weight 88.45 kg Krystin Barillas MD Work Phone: [facility] 07-19-2024 07:57-0400 Diastolic blood pressure 84 mm[Hg] Krystin Barillas MD Work Phone: [facility] 07-19-2024 07:57-0400 Heart rate 72 /min Krystin Barillas MD Work Phone: [facility] 07-19-2024 07:57-0400 Respiratory rate 18 /min Krystin Barillas MD Work Phone: [facility] 07-19-2024 07:57-0400 SaO2% (BldA) [Mass fraction] 100 % Krystin Barillas MD Work Phone: [facility] 07-19-2024 07:57-0400 Systolic blood pressure 138 mm[Hg] Krystin Barillas MD Work Phone: [facility] 07-15-2024 13:21-0400 Body height 180.3 cm [facility] 07-15-2024 13:21-0400 Body mass index (BMI) [Ratio] 26.92 kg/m2 [facility] 07-15-2024 13:21-0400 Body weight 87.54 kg [facility] 07-14-2024 08:55-0400 Body height 180.3 cm Richie Hanna APRN-PLATE CONDITIONER Work Phone: [facility] 07-14-2024 08:55-0400 Body mass index (BMI) [Ratio] 27 kg/m2 Richie Hanna RESTAURANT ASSISTANT MANAGER-PLATE CONDITIONER Work Phone: [facility] 07-14-2024 08:55-0400 Body temperature 97.9 [degF] Richie Hanna RESTAURANT ASSISTANT MANAGER-PLATE CONDITIONER Work Phone: [facility] 07-14-2024 08:55-0400 Body weight 87.82 kg Richie Hanna RESTAURANT ASSISTANT MANAGER-PLATE CONDITIONER Work Phone: [facility] 07-14-2024 08:55-0400 Heart rate 66 /min Richie Hanna APRN-PLATE CONDITIONER Work Phone: [facility] 07-14-2024 08:55-0400 Respiratory rate 18 /min Richie Hanna APRN-PLATE CONDITIONER Work Phone: [facility] 07-14-2024 08:55-0400 SaO2% (BldA) [Mass fraction] 99 % Richie Hanna RESTAURANT ASSISTANT MANAGER-PLATE CONDITIONER Work Phone: [facility] 07-06-2024 08:49-0400 Body height 180.3 cm Marisela Cuevas RESTAURANT ASSISTANT MANAGER-PLATE CONDITIONER Work Phone: [facility] 07-06-2024 08:49-0400 Body mass index (BMI) [Ratio] 26.36 kg/m2 Marisela Cuevas RESTAURANT ASSISTANT MANAGER-PLATE CONDITIONER Work Phone: [facility] 07-06-2024 08:49-0400 Body weight 85.73 kg Marisela Cuevas RESTAURANT ASSISTANT MANAGER-PLATE CONDITIONER Work Phone: [facility] 07-06-2024 08:49-0400 Diastolic blood pressure 90 mm[Hg] Marisela Cuevas RESTAURANT ASSISTANT MANAGER-PLATE CONDITIONER Work Phone: [facility] 07-06-2024 08:49-0400 Heart rate 71 /min Marisela Cuevas RESTAURANT ASSISTANT MANAGER-PLATE CONDITIONER Work Phone: [facility] 07-06-2024 08:49-0400 Systolic blood pressure 144 mm[Hg] Marisela Cuevas RESTAURANT ASSISTANT MANAGER-PLATE CONDITIONER Work Phone: [facility] 06-29-2024 14:29-0400 Body height 180.3 cm Marisela Cuevas RESTAURANT ASSISTANT MANAGER-PLATE CONDITIONER Work Phone: [facility] 06-29-2024 14:29-0400 Body mass index (BMI) [Ratio] 26.36 kg/m2 Marisela Cuevas RESTAURANT ASSISTANT MANAGER-PLATE CONDITIONER Work Phone: [facility] 06-29-2024 14:29-0400 Body temperature 97.39 [degF] Marisela Cuevas RESTAURANT ASSISTANT MANAGER-PLATE CONDITIONER Work Phone: [facility] 06-29-2024 14:29-0400 Body weight 85.73 kg Marisela Cuevas RESTAURANT ASSISTANT MANAGER-PLATE CONDITIONER Work Phone: [facility] 06-29-2024 14:29-0400 Diastolic blood pressure 113 mm[Hg] Marisela Cuevas RESTAURANT ASSISTANT MANAGER-PLATE CONDITIONER Work Phone: [facility] Comment on above: patient states its been running high 06-29-2024 14:29-0400 Heart rate 84 /min Marisela Cuevas RESTAURANT ASSISTANT MANAGER-PLATE CONDITIONER Work Phone: [facility] 06-29-2024 14:29-0400 Respiratory rate 14 /min Marisela Cuevas RESTAURANT ASSISTANT MANAGER-PLATE CONDITIONER Work Phone: [facility] 06-29-2024 14:29-0400 Systolic blood pressure 168 mm[Hg] Marisela Cuevas RESTAURANT ASSISTANT MANAGER-PLATE CONDITIONER Work Phone: [facility] Comment on above: patient states its been running high 06-22-2024 15:10-0400 Diastolic blood pressure 95 mm[Hg] Marisela Cuevas RESTAURANT ASSISTANT MANAGER-PLATE CONDITIONER Work Phone: [facility] 06-22-2024 15:10-0400 Systolic blood pressure 141 mm[Hg] Marisela Cuevas RESTAURANT ASSISTANT MANAGER-PLATE CONDITIONER Work Phone: [facility] 06-22-2024 15:09-0400 Body height 180.3 cm Marisela Cuevas RESTAURANT ASSISTANT MANAGER-PLATE CONDITIONER Work Phone: [facility] 06-22-2024 15:09-0400 Body mass index (BMI) [Ratio] 26.36 kg/m2 Mariselavladimir GlasgowCuevas RESTAURANT ASSISTANT MANAGER-PLATE CONDITIONER Work Phone: [facility] 06-22-2024 15:09-0400 Body weight 85.73 kg Marisela Cuevas RESTAURANT ASSISTANT MANAGER-PLATE CONDITIONER Work Phone: [facility] 06-22-2024 15:09-0400 Heart rate 81 /min Mariselavladimir GlasgowCuevas RESTAURANT ASSISTANT MANAGER-PLATE CONDITIONER Work Phone: [facility] 06-22-2024 15:09-0400 Respiratory rate 16 /min Mariselavladimir GlasgowCuevas RESTAURANT ASSISTANT MANAGER-PLATE CONDITIONER Work Phone: [facility] 06-08-2024 11:52-0400 Body temperature 97.7 [degF] Trish Bosinger PA-C Work Phone: [facility] 06-08-2024 11:52-0400 Diastolic blood pressure 110 mm[Hg] Trish Bosinger PA-C Work Phone: [facility] 06-08-2024 11:52-0400 Heart rate 69 /min Trish Bosinger PA-C Work Phone: [facility] 06-08-2024 11:52-0400 Respiratory rate 16 /min Trish Bosinger PA-C Work Phone: [facility] 06-08-2024 11:52-0400 Systolic blood pressure 156 mm[Hg] Trish Lombardo PA-C Work Phone: [facility] 06-03-2024 10:37-0400 Body height 180.34 cm Randy Furlong DO Work Phone: [facility] 06-03-2024 10:37-0400 Body weight 83.91 kg Randy Normanlong DO Work Phone: [facility] 06-01-2024 11:21-0400 Body mass index (BMI) [Ratio] 26.28 kg/m2 Evan Jay DO Work Phone: [facility] 06-01-2024 11:21-0400 Body weight 85.46 kg Evan Jay DO Work Phone: [facility] 06-01-2024 11:21-0400 Diastolic blood pressure 68 mm[Hg] Evan Jay DO Work Phone: [facility] 06-01-2024 11:21-0400 Systolic blood pressure 110 mm[Hg] Evan Jay DO Work Phone: [facility] 06-01-2024 09:36-0400 Body temperature 97.7 [degF] Marisela Cuevas RESTAURANT ASSISTANT MANAGER-PLATE CONDITIONER Work Phone: [facility] 06-01-2024 09:36-0400 Diastolic blood pressure 95 mm[Hg] Marisela Cuevas RESTAURANT ASSISTANT MANAGER-PLATE CONDITIONER Work Phone: [facility] 06-01-2024 09:36-0400 Heart rate 81 /min Marisela Cuevas RESTAURANT ASSISTANT MANAGER-PLATE CONDITIONER Work Phone: [facility] 06-01-2024 09:36-0400 Respiratory rate 14 /min Marisela Cuevas RESTAURANT ASSISTANT MANAGER-PLATE CONDITIONER Work Phone: [facility] 06-01-2024 09:36-0400 Systolic blood pressure 149 mm[Hg] Marisela Cuevas RESTAURANT ASSISTANT MANAGER-PLATE CONDITIONER Work Phone: [facility] 05-22-2024 22:22-0400 SaO2% (BldA) [Mass fraction] 96 % [facility] 05-22-2024 22:22-0400 Heart rate 97 /min [facility] 05-22-2024 22:12-0400 SaO2% (BldA) [Mass fraction] 96 % [facility] 05-22-2024 22:12-0400 Heart rate 102 /min [facility] 05-22-2024 22:12-0400 Body temperature 99.68 [degF] [facility] 05-22-2024 22:12-0400 Diastolic blood pressure 94 mm[Hg] [facility] 05-22-2024 22:12-0400 Mean blood pressure 109 mm[Hg] [facility] 05-22-2024 22:12-0400 Respiratory rate 18 /min [facility] 05-22-2024 22:12-0400 Systolic blood pressure 138 mm[Hg] [facility] 05-22-2024 21:35-0400 SaO2% (BldA) [Mass fraction] 95 % [facility] 05-22-2024 21:35-0400 Heart rate 108 /min [facility] 05-22-2024 21:35-0400 Body temperature 100.76 [degF] [facility] 05-22-2024 21:35-0400 Diastolic blood pressure 85 mm[Hg] [facility] 05-22-2024 21:35-0400 Mean blood pressure 103 mm[Hg] [facility] 05-22-2024 21:35-0400 Respiratory rate 18 /min [facility] 05-22-2024 21:35-0400 Systolic blood pressure 140 mm[Hg] [facility] 05-22-2024 21:00-0400 Mean blood pressure 106 mm[Hg] [facility] 05-22-2024 20:58-0400 Body temperature 101.84 [degF] [facility] 05-22-2024 19:00-0400 Heart rate 120 /min [facility] 05-18-2024 09:08-0400 Body height 180.3 cm Shereen Smallwood PA-C Work Phone: [facility] 05-18-2024 09:08-0400 Body mass index (BMI) [Ratio] 26.89 kg/m2 Shereen Smallwood PA-C Work Phone: [facility] 05-18-2024 09:08-0400 Body temperature 97.5 [degF] Shereen Smallwood PA-C Work Phone: [facility] 05-18-2024 09:08-0400 Body weight 87.45 kg Shereen Smallwood PA-C Work Phone: [facility] 05-18-2024 09:08-0400 Diastolic blood pressure 90 mm[Hg] Shereen Smallwood PA-C Work Phone: [facility] 05-18-2024 09:08-0400 Heart rate 84 /min Shereen Smallwood PA-C Work Phone: [facility] 05-18-2024 09:08-0400 Systolic blood pressure 151 mm[Hg] Shereen Smallwood PA-C Work Phone: [facility] 05-12-2024 11:49-0400 Body height 180.3 cm [facility] 05-12-2024 11:49-0400 Body mass index (BMI) [Ratio] 26.78 kg/m2 [facility] 05-12-2024 11:49-0400 Body weight 87.09 kg [facility] 04-28-2024 16:02-0500 Body temperature 97.9 [degF] Jhon Gross MD Work Phone: [facility] 04-28-2024 16:02-0500 Diastolic blood pressure 85 mm[Hg] Jhon Gross MD Work Phone: [facility] 04-28-2024 16:02-0500 Heart rate 92 /min Jhon Gross MD Work Phone: [facility] 04-28-2024 16:02-0500 Systolic blood pressure 148 mm[Hg] Jhon Gross MD Work Phone: [facility] 04-26-2024 15:01-0500 Body height 178 cm Evan Jay DO Work Phone: [facility] 04-26-2024 15:01-0500 Body mass index (BMI) [Ratio] 28.5 kg/m2 Evan Jay DO Work Phone: [facility] 04-26-2024 15:01-0500 Body temperature 97.4 [degF] Evan Jay DO Work Phone: [facility] 04-26-2024 15:01-0500 Body weight 90.52 kg Evan Jay DO Work Phone: [facility] 04-26-2024 15:01-0500 Diastolic blood pressure 69 mm[Hg] Evan Jay DO Work Phone: [facility] 04-26-2024 15:01-0500 Heart rate 86 /min Evan Jay DO Work Phone: [facility] 04-26-2024 15:01-0500 Respiratory rate 16 /min Evan Jay DO Work Phone: [facility] 04-26-2024 15:01-0500 SaO2% (BldA) [Mass fraction] 98 % Evan Morao Work Phone: [facility] 04-26-2024 15:01-0500 Systolic blood pressure 125 mm[Hg] Evan Morao Work Phone: [facility] 04-20-2024 15:11-0500 Body height 180.3 cm Marisela Cuevas RESTAURANT ASSISTANT MANAGER-PLATE CONDITIONER Work Phone: [facility] 04-20-2024 15:11-0500 Body mass index (BMI) [Ratio] 27.71 kg/m2 Marisela Cuevas RESTAURANT ASSISTANT MANAGER-PLATE CONDITIONER Work Phone: [facility] 04-20-2024 15:11-0500 Body temperature 97.59 [degF] Marisela Cuevas RESTAURANT ASSISTANT MANAGER-PLATE CONDITIONER [facility] 04-20-2024 15:11-0500 Body weight 90.08 kg Marisela Cuevas RESTAURANT ASSISTANT MANAGER-PLATE CONDITIONER [facility] 04-20-2024 15:11-0500 Diastolic blood pressure 85 mm[Hg] Marisela Cuevas RESTAURANT ASSISTANT MANAGER-PLATE CONDITIONER [facility] 04-20-2024 15:11-0500 Heart rate 84 /min Marisela Cuevas RESTAURANT ASSISTANT MANAGER-PLATE CONDITIONER [facility] 04-20-2024 15:11-0500 Respiratory rate 16 /min Marisela Cuevas RESTAURANT ASSISTANT MANAGER-PLATE CONDITIONER [facility] 04-20-2024 15:11-0500 Systolic blood pressure 143 mm[Hg] Marisela Cuevas RESTAURANT ASSISTANT MANAGER-PLATE CONDITIONER [facility] 04-13-2024 13:40-0500 Body height 180.3 cm Marisela Cuevas RESTAURANT ASSISTANT MANAGER-PLATE CONDITIONER Work Phone: [facility] 04-13-2024 13:40-0500 Body mass index (BMI) [Ratio] 27.71 kg/m2 Mariselavladimir Cuevas APRN-PLATE CONDITIONER Work Phone: [facility] 04-13-2024 13:40-0500 Body temperature 97.9 [degF] Mariselavladimir Cuevas APRN-PLATE CONDITIONER Work Phone: [facility] 04-13-2024 13:40-0500 Body weight 90.08 kg Mariselavladimir Cuevas APRN-PLATE CONDITIONER Work Phone: [facility] 04-13-2024 13:40-0500 Diastolic blood pressure 82 mm[Hg] Mariselavladimir Cuevas APRN-PLATE CONDITIONER Work Phone: [facility] 04-13-2024 13:40-0500 Respiratory rate 15 /min Mariselavladimir Cuevas APRN-PLATE CONDITIONER Work Phone: [facility] 04-13-2024 13:40-0500 Systolic blood pressure 134 mm[Hg] Marisela Cuevas APRN-PLATE CONDITIONER Work Phone: [facility] 04-13-2024 13:12-0500 Diastolic blood pressure 82 mm[Hg] Raymond Sepulveda MD Work Phone: [facility] 04-13-2024 13:12-0500 Heart rate 78 /min Raymond Sepulveda MD Work Phone: [facility] 04-13-2024 13:12-0500 Respiratory rate 16 /min Raymond Sepulveda MD Work Phone: [facility] 04-13-2024 13:12-0500 SaO2% (BldA) [Mass fraction] 99 % Raymond Sepulveda MD Work Phone: [facility] 04-13-2024 13:12-0500 Systolic blood pressure 134 mm[Hg] Raymond Sepulveda MD Work Phone: [facility] 04-13-2024 13:08-0500 Body height 180.3 cm Raymond Sepulveda MD Work Phone: [facility] 04-13-2024 13:08-0500 Body mass index (BMI) [Ratio] 27.71 kg/m2 Raymond Sepulveda MD Work Phone: [facility] 04-13-2024 13:08-0500 Body weight 90.08 kg Raymond Sepulveda MD Work Phone: [facility] 03-30-2024 15:58-0500 Body height 180.3 cm Marisela Cuevas RESTAURANT ASSISTANT MANAGER-PLATE CONDITIONER Work Phone: [facility] 03-30-2024 15:58-0500 Body mass index (BMI) [Ratio] 27.91 kg/m2 Marisela Cuevas RESTAURANT ASSISTANT MANAGER-PLATE CONDITIONER Work Phone: [facility] 03-30-2024 15:58-0500 Body weight 90.72 kg Marisela Cuevas RESTAURANT ASSISTANT MANAGER-PLATE CONDITIONER Work Phone: [facility] 03-30-2024 15:58-0500 Diastolic blood pressure 82 mm[Hg] Marisela Cuevas RESTAURANT ASSISTANT MANAGER-PLATE CONDITIONER Work Phone: [facility] 03-30-2024 15:58-0500 Heart rate 82 /min Marisela Cuevas RESTAURANT ASSISTANT MANAGER-PLATE CONDITIONER Work Phone: [facility] 03-30-2024 15:58-0500 Systolic blood pressure 123 mm[Hg] Marisela Cuevas RESTAURANT ASSISTANT MANAGER-PLATE CONDITIONER Work Phone: [facility] 03-10-2024 11:42-0500 Body mass index (BMI) [Ratio] 27.91 kg/m2 Evan Jay DO Work Phone: [facility] 03-10-2024 11:42-0500 Body weight 90.77 kg Evan Jay DO Work Phone: [facility] 03-10-2024 11:42-0500 Diastolic blood pressure 82 mm[Hg] Evan Jay DO Work Phone: [facility] 03-10-2024 11:42-0500 Systolic blood pressure 120 mm[Hg] Evan Jay DO Work Phone: [facility] 03-10-2024 08:44-0500 Body height 180.3 cm Jhon Gross MD Work Phone: [facility] 03-10-2024 08:44-0500 Body mass index (BMI) [Ratio] 28.1 kg/m2 Jhon Gross MD Work Phone: [facility] 03-10-2024 08:44-0500 Body temperature 97.7 [degF] Jhon Gross MD Work Phone: [facility] 03-10-2024 08:44-0500 Body weight 91.4 kg Jhon Gross MD Work Phone: [facility] 03-10-2024 08:44-0500 Diastolic blood pressure 99 mm[Hg] Jhon Gross MD Work Phone: [facility] Comment on above: Patient has not taken bp meds this dorysmellissa terry 03-10-2024 08:44-0500 Heart rate 76 /min Jhon Gross MD Work Phone: [facility] 03-10-2024 08:44-0500 Respiratory rate 12 /min Jhon Gross MD Work Phone: [facility] 03-10-2024 08:44-0500 Systolic blood pressure 160 mm[Hg] Jhon Gross MD Work Phone: [facility] Comment on above: Patient has not taken bp meds this dorysmellissa terry 03-03-2024 12:50-0500 Diastolic blood pressure 85 mm[Hg] Jhon Gross MD Work Phone: [facility] 03-03-2024 12:50-0500 Heart rate 89 /min Jhon Gross MD Work Phone: [facility] 03-03-2024 12:50-0500 Respiratory rate 16 /min Jhon Gross MD Work Phone: [facility] 03-03-2024 12:50-0500 Systolic blood pressure 129 mm[Hg] Jhon Gross MD Work Phone: [facility] 02-15-2024 15:58-0500 Body mass index (BMI) [Ratio] 28.87 kg/m2 Evan Jay DO Work Phone: [facility] 02-15-2024 15:58-0500 Body weight 93.89 kg Evan Jay DO Work Phone: [facility] 02-15-2024 15:58-0500 Diastolic blood pressure 72 mm[Hg] Evan Jay DO Work Phone: [facility] 02-15-2024 15:58-0500 Systolic blood pressure 124 mm[Hg] Evan Jay DO Work Phone: [facility] 02-11-2024 14:33-0500 Body height 180.34 cm Randy Furlong DO Work Phone: [facility] 02-11-2024 14:33-0500 Body mass index (BMI) [Ratio] 28.5 kg/m2 Randy Furlong DO Work Phone: [facility] 02-11-2024 14:33-0500 Body temperature 98.2 [degF] Randy Furlong DO Work Phone: [facility] 02-11-2024 14:33-0500 Body weight 92.98 kg Randy Furlong DO Work Phone: [facility] 02-11-2024 14:33-0500 Diastolic blood pressure 82 mm[Hg] Randy Furlong DO Work Phone: [facility] 02-11-2024 14:33-0500 Heart rate 90 /min Randy Furlong DO Work Phone: [facility] 02-11-2024 14:33-0500 Systolic blood pressure 125 mm[Hg] Randy Furlong DO Work Phone: [facility] 01-25-2024 10:07-0500 Body height 180.3 cm Yves Coffey MD Work Phone: [facility] 01-25-2024 10:07-0500 Body mass index (BMI) [Ratio] 29.29 kg/m2 Yves Coffey MD Work Phone: [facility] 01-25-2024 10:07-0500 Body weight 95.25 kg Yves Cofefy MD Work Phone: [facility] 12-29-2023 08:49-0400 Diastolic blood pressure 86 mm[Hg] Shereen Castilloreaux PA-C Work Phone: [facility] 12-29-2023 08:49-0400 Heart rate 111 /min Shereen Castilloreaux PA-C Work Phone: [facility] 12-29-2023 08:49-0400 Respiratory rate 14 /min Shereen Castilloreaux PA-C Work Phone: [facility] 12-29-2023 08:49-0400 Systolic blood pressure 143 mm[Hg] Shereen Castilloreaux PA-C Work Phone: [facility] 12-28-2023 21:30-0400 Diastolic blood pressure 95 mm[Hg] Rusty Clifford [facility] 12-28-2023 21:30-0400 Heart rate 85 /min Rusty Clifford [facility] 12-28-2023 21:30-0400 Mean blood pressure 114 mm[Hg] Rusty Clifford [facility] 12-28-2023 21:30-0400 Respiratory rate 16 /min Rusty Clifford [facility] 12-28-2023 21:30-0400 SaO2% (BldA) [Mass fraction] 94 % Rusty Clifford [facility] 12-28-2023 21:30-0400 Systolic blood pressure 153 mm[Hg] Rusty Clifford [facility] 12-28-2023 21:00-0400 Diastolic blood pressure 96 mm[Hg] Rusty Clifford [facility] 12-28-2023 21:00-0400 Heart rate 89 /min Rusty Clifford [facility] 12-28-2023 21:00-0400 Mean blood pressure 119 mm[Hg] Rusty Clifford [facility] 12-28-2023 21:00-0400 SaO2% (BldA) [Mass fraction] 96 % Rusty Clifford [facility] 12-28-2023 21:00-0400 Systolic blood pressure 164 mm[Hg] Rusty Clifford [facility] 12-28-2023 20:27-0400 Body temperature 98.24 [degF] Rusty Clifford [facility] 12-28-2023 20:27-0400 Diastolic blood pressure 86 mm[Hg] Rusty Clifford [facility] 12-28-2023 20:27-0400 Heart rate 95 /min Rusty Clifford [facility] 12-28-2023 20:27-0400 Respiratory rate 16 /min Rusty Clifford [facility] 12-28-2023 20:27-0400 SaO2% (BldA) [Mass fraction] 97 % Rusty Clifford [facility] 12-28-2023 20:27-0400 Systolic blood pressure 154 mm[Hg] Rusty Clifford [facility] 12-21-2023 13:57-0400 Diastolic blood pressure 84 mm[Hg] Marisela Cuevas RESTAURANT ASSISTANT MANAGER-PL[employer] CONDITIONER Work Phone: [facility] 12-21-2023 13:57-0400 Heart rate 96 /min Marisela Cuevas RESTAURANT ASSISTANT MANAGER-PLATE CONDITIONER Work Phone: [facility] 12-21-2023 13:57-0400 Respiratory rate 14 /min Marisela Cuevas RESTAURANT ASSISTANT MANAGER-PLATE CONDITIONER Work Phone: [facility] 12-21-2023 13:57-0400 Systolic blood pressure 141 mm[Hg] Marisela Cuevas RESTAURANT ASSISTANT MANAGER-PLATE CONDITIONER Work Phone: [facility] 12-14-2023 14:14-0400 Body height 180.3 cm Suzette Romp PA Work Phone: [facility] 12-14-2023 14:14-0400 Body mass index (BMI) [Ratio] 29.15 kg/m2 Suzette Romp PA Work Phone: [facility] 12-14-2023 14:14-0400 Body weight 94.8 kg [facility]p [facility] 12-14-2023 14:14-0400 Diastolic blood pressure 87 mm[Hg] Suzette Romp PA Work Phone: [facility] 12-14-2023 14:14-0400 Heart rate 86 /min Suzette Romp PA [facility] 12-14-2023 14:14-0400 Respiratory rate 18 /min Suzette Romp PA Work Phone: [facility] 12-14-2023 14:14-0400 Systolic blood pressure 142 mm[Hg] Szuette Romp PA Work Phone: [facility] 12-09-2023 11:55-0400 Body temperature 97.5 [degF] Amy Singh MD Work Phone: [facility] 12-09-2023 11:55-0400 Diastolic blood pressure 70 mm[Hg] Amy Singh MD Work Phone: [facility] 12-09-2023 11:55-0400 Heart rate 75 /min Amy Singh MD Work Phone: [facility] 12-09-2023 11:55-0400 SaO2% (BldA) [Mass fraction] 99 % Amy Singh MD Work Phone: [facility] 12-09-2023 11:55-0400 Systolic blood pressure 125 mm[Hg] Amy Singh MD Work Phone: [facility] 12-09-2023 09:14-0400 Respiratory rate 18 /min Amy Singh MD Work Phone: [facility] 12-05-2023 05:53-0400 Body mass index (BMI) [Ratio] 30.29 kg/m2 Amy Singh MD Work Phone: [facility] 12-05-2023 05:53-0400 Body weight 98.5 kg mAy Singh MD Work Phone: [facility] 12-03-2023 00:06-0400 Body height 180.3 cm Amy Singh MD Work Phone: [facility] 12-02-2023 10:21-0400 Body height 180.3 cm Jhon Gross MD Work Phone: [facility] 12-02-2023 10:21-0400 Body mass index (BMI) [Ratio] 29.29 kg/m2 Jhon Gross MD Work Phone: [facility] 12-02-2023 10:21-0400 Body temperature 97.39 [degF] Jhon Gross MD Work Phone: [facility] 12-02-2023 10:21-0400 Body weight 95.2 kg Jhon Gross MD Work Phone: [facility] 12-02-2023 10:21-0400 Diastolic blood pressure 88 mm[Hg] Jhon Gross MD Work Phone: [facility] 12-02-2023 10:21-0400 Heart rate 84 /min Jhon Gross MD Work Phone: [facility] 12-02-2023 10:21-0400 Respiratory rate 14 /min Jhon Gross MD Work Phone: [facility] 12-02-2023 10:21-0400 Systolic blood pressure 142 mm[Hg] Jhon Gross MD Work Phone: [facility] 11-26-2023 11:54-0400 Diastolic blood pressure 82 mm[Hg] Jhon Gross MD Work Phone: [facility] 11-26-2023 11:54-0400 Heart rate 93 /min Jhon Gross MD Work Phone: [facility] 11-26-2023 11:54-0400 Respiratory rate 14 /min Jhon Gross MD Work Phone: [facility] 11-26-2023 11:54-0400 Systolic blood pressure 141 mm[Hg] Jhon Gross MD Work Phone: [facility] 11-25-2023 14:53-0400 Diastolic blood pressure 87 mm[Hg] Marisela Cuevas RESTAURANT ASSISTANT MANAGER-PLATE CONDITIONER Work Phone: [facility] 11-25-2023 14:53-0400 Heart rate 99 /min Marisela Cuevas RESTAURANT ASSISTANT MANAGER-PLATE CONDITIONER Work Phone: [facility] 11-25-2023 14:53-0400 Respiratory rate 16 /min Marisela Cuevas RESTAURANT ASSISTANT MANAGER-PLATE CONDITIONER Work Phone: [facility] 11-25-2023 14:53-0400 Systolic blood pressure 122 mm[Hg] Marisela Cuevas RESTAURANT ASSISTANT MANAGER-PLATE CONDITIONER Work Phone: [facility] 11-18-2023 11:30-0400 Diastolic blood pressure 81 mm[Hg] Marisela Cuevas RESTAURANT ASSISTANT MANAGER-PLATE CONDITIONER Work Phone: [facility] 11-18-2023 11:30-0400 Heart rate 103 /min Marisela Cuevas RESTAURANT ASSISTANT MANAGER-PLATE CONDITIONER Work Phone: [facility] 11-18-2023 11:30-0400 Respiratory rate 12 /min Marisela Cuevas RESTAURANT ASSISTANT MANAGER-PLATE CONDITIONER Work Phone: [facility] 11-18-2023 11:30-0400 Systolic blood pressure 121 mm[Hg] Marisela Cuevas RESTAURANT ASSISTANT MANAGER-PLATE CONDITIONER Work Phone: [facility] 11-11-2023 13:35-0400 Diastolic blood pressure 81 mm[Hg] Marisela Cuevas RESTAURANT ASSISTANT MANAGER-PLATE CONDITIONER Work Phone: [facility] 11-11-2023 13:35-0400 Heart rate 98 /min Marisela Cuevas RESTAURANT ASSISTANT MANAGER-PLATE CONDITIONER Work Phone: [facility] 11-11-2023 13:35-0400 Respiratory rate 16 /min Marisela Cuevas RESTAURANT ASSISTANT MANAGER-PLATE CONDITIONER Work Phone: [facility] 11-11-2023 13:35-0400 Systolic blood pressure 125 mm[Hg] Marisela Cuevas RESTAURANT ASSISTANT MANAGER-PLATE CONDITIONER Work Phone: [facility] 11-04-2023 10:46-0400 Diastolic blood pressure 83 mm[Hg] Marisela Cuevas RESTAURANT ASSISTANT MANAGER-PLATE CONDITIONER Work Phone: [facility] 11-04-2023 10:46-0400 Heart rate 87 /min Mariselavladimir Cuevas RESTAURANT ASSISTANT MANAGER-PLATE CONDITIONER Work Phone: [facility] 11-04-2023 10:46-0400 Respiratory rate 14 /min Mariselavladimir Cuevas RESTAURANT ASSISTANT MANAGER-PLATE CONDITIONER Work Phone: [facility] 11-04-2023 10:46-0400 Systolic blood pressure 129 mm[Hg] Marisela Cuevas RESTAURANT ASSISTANT MANAGER-PLATE CONDITIONER Work Phone: [facility] 10-16-2023 12:07-0400 Body temperature 97.9 [degF] [facility] [address] [place] [address] 10-16-2023 12:07-0400 Diastolic blood pressure 76 mm[Hg] [facility] [address] [place] [address] 10-16-2023 12:07-0400 Heart rate 83 /min [facility] [address] [place] [address] 10-16-2023 12:07-0400 Respiratory rate 20 /min [facility] [facility] 10-16-2023 12:07-0400 SaO2% (BldA) [Mass fraction] 99 % [facility] 10-16-2023 12:07-0400 Systolic blood pressure 118 mm[Hg] [facility] [address] [place] [address] 10-16-2023 11:54-0400 Body height 180.3 cm [facility] [address] [place] [address] 10-16-2023 11:54-0400 Body mass index (BMI) [Ratio] 31.55 kg/m2 [facility] 10-16-2023 11:54-0400 Body weight 102.6 kg [facility] [address] [place] [address] 10-01-2023 13:03-0400 Body height 180.34 cm DO Ramirezlinnea Calle Work Phone: [facility] 10-01-2023 13:03-0400 Body mass index (BMI) [Ratio] 31.6 kg/m2 DO Randy Furlong Work Phone: [facility] 10-01-2023 13:03-0400 Body weight 102.96 kg DO Randy Furlong Work Phone: [facility] 10-01-2023 13:03-0400 Diastolic blood pressure 62 mm[Hg] DO Randy Furlong Work Phone: [facility] 10-01-2023 13:03-0400 Heart rate 80 /min DO Randy Furlong Work Phone: [facility] 10-01-2023 13:03-0400 Respiratory rate 18 /min DO Randy Furlong Work Phone: [facility] 10-01-2023 13:03-0400 SaO2% (BldA) [Mass fraction] 100 % DO Randy Furlong Work Phone: [facility] 10-01-2023 13:03-0400 Systolic blood pressure 113 mm[Hg] DO Randy Furlong Work Phone: [facility] 08-20-2023 10:14-0400 Body height 180.3 cm Jhon Gross MD Work Phone: [facility] 08-20-2023 10:14-0400 Body mass index (BMI) [Ratio] 32.39 kg/m2 Jhon Gross MD Work Phone: [facility] 08-20-2023 10:14-0400 Body weight 105.33 kg Jhon Gross MD Work Phone: [facility] 08-20-2023 10:14-0400 Diastolic blood pressure 81 mm[Hg] Jhon Gross MD Work Phone: [facility] 08-20-2023 10:14-0400 Heart rate 84 /min Jhon Gross MD Work Phone: [facility] 08-20-2023 10:14-0400 Respiratory rate 18 /min Jhon Gross MD Work Phone: [facility] 08-20-2023 10:14-0400 Systolic blood pressure 128 mm[Hg] Jhon Gross MD Work Phone: [facility] 07-30-2023 15:05-0400 Body height 180.3 cm Christy He MD Work Phone: [facility] 07-30-2023 15:05-0400 Body mass index (BMI) [Ratio] 32.26 kg/m2 Chritsy He MD Work Phone: [facility] 07-30-2023 15:05-0400 Body weight 104.87 kg Christy He MD Work Phone: [facility] 07-30-2023 15:05-0400 Diastolic blood pressure 68 mm[Hg] Christy He MD Work Phone: [facility] 07-30-2023 15:05-0400 Systolic blood pressure 110 mm[Hg] Christy He MD Work Phone: [facility] 04-28-2023 08:07-0500 Body height 180.3 cm Christy He MD Work Phone: [facility] 04-28-2023 08:07-0500 Body mass index (BMI) [Ratio] 30.42 kg/m2 Christy He MD Work Phone: [facility] 04-28-2023 08:07-0500 Body weight 98.88 kg Christy He MD Work Phone: [facility] 04-28-2023 08:07-0500 Diastolic blood pressure 80 mm[Hg] Christy He MD Work Phone: [facility] 04-28-2023 08:07-0500 Heart rate 74 /min Christy He MD Work Phone: [facility] 04-28-2023 08:07-0500 Respiratory rate 16 /min Christy He MD Work Phone: [facility] 04-28-2023 08:07-0500 Systolic blood pressure 120 mm[Hg] Christy He MD Work Phone: [facility] 04-10-2023 15:17-0500 Blood Pressure Location Sandrita N[facility] 04-10-2023 15:17-0500 Diastolic blood pressure 80 mm[Hg] Sandrita N[facility] 04-10-2023 15:17-0500 Heart rate 72 /min Sandrita NILL [facility] 04-10-2023 15:17-0500 Respiratory rate 16 /min Sandrita NILL [facility] 04-10-2023 15:17-0500 Systolic blood pressure 116 mm[Hg] Sandrita NILL [facility] 04-02-2023 11:41-0500 Body mass index (BMI) [Ratio] 30.68 kg/m2 Evan Jay DO Work Phone: [facility] 04-02-2023 11:41-0500 Body weight 99.79 kg Evan Jay DO Work Phone: [facility] 04-02-2023 11:41-0500 Diastolic blood pressure 72 mm[Hg] Evan Jay DO Work Phone: [facility] 04-02-2023 11:41-0500 Systolic blood pressure 124 mm[Hg] Evan Jay DO Work Phone: [facility] 09-29-2022 14:29-0400 Body height 180.34 cm Randy Jaramillo Furlong Work Phone: [facility] [facility] DO Work Phone: 09-29-2022 14:29-0400 Body mass index (BMI) [Ratio] 31.52 kg/m2 Randy Normanlong Work Phone: [facility] [employer] DO Work Phone: 09-29-2022 14:29-0400 Body surface area Derived from formula 2.22 m2 Randy Jaramillo Furlong Work Phone: [facility] [employer] DO Work Phone: 09-29-2022 14:29-0400 Body weight 102.51 kg Randy Normanlong Work Phone: [facility] [employer] DO Work Phone: 09-29-2022 14:29-0400 Diastolic blood pressure 88 mm[Hg] Randy Normanlong Work Phone: [facility] [employer] DO Work Phone: 09-29-2022 14:29-0400 Heart rate 76 /min Randy Normanlong Work Phone: [facility] [employer] DO Work Phone: 09-29-2022 14:29-0400 Systolic blood pressure 138 mm[Hg] Randy Normanlong Work Phone: [facility] [employer] DO Work Phone: 09-12-2022 14:56-0400 Body height 180.34 cm Randy Jaramillo Furlong Work Phone: [facility] [employer] DO Work Phone: 09-12-2022 14:56-0400 Body mass index (BMI) [Ratio] 30.96 kg/m2 Randy G Furlong Work Phone: [facility] [employer] DO Work Phone: 09-12-2022 14:56-0400 Body surface area Derived from formula 2.2 m2 Randy G Furlong Work Phone: [facility] [facility] DO Work Phone: 09-12-2022 14:56-0400 Body weight 100.7 kg Randy G Furlong Work Phone: [facility] DO Work Phone: 09-12-2022 14:56-0400 Diastolic blood pressure 88 mm[Hg] Randy G Furlong Work Phone: [facility] DO Work Phone: 09-12-2022 14:56-0400 Heart rate 78 /min Randy G Furlong Work Phone: [facility] [facility] DO Work Phone: 09-12-2022 14:56-0400 Systolic blood pressure 132 mm[Hg] Randy G Furlong Work Phone: [facility] [employer] [facility] DO Work Phone: 08-22-2022 09:47-0400 Diastolic blood pressure 100 mm[Hg] Randy G Furlong Work Phone: [facility] [facility] DO Work Phone: 08-22-2022 09:47-0400 Systolic blood pressure 142 mm[Hg] Randy G Furlong Work Phone: [facility] DO Work Phone: 08-22-2022 09:46-0400 Body height 180.34 cm Randy G Furlong Work Phone: [facility] DO Work Phone: 08-22-2022 09:46-0400 Body mass index (BMI) [Ratio] 30.68 kg/m2 Randy G Furlong Work Phone: [facility] DO Work Phone: 08-22-2022 09:46-0400 Body surface area Derived from formula 2.2 m2 Randy G Furlong Work Phone: [facility] [facility] DO Work Phone: 08-22-2022 09:46-0400 Body weight 99.79 kg Randy G Furlong Work Phone: [facility] DO Work Phone: 08-22-2022 09:46-0400 Diastolic blood pressure 102 mm[Hg] Randy G Furlong Work Phone: [facility] DO Work Phone: 08-22-2022 09:46-0400 Heart rate 74 /min Randy G Furlong Work Phone: [facility] DO Work Phone: 08-22-2022 09:46-0400 Systolic blood pressure 148 mm[Hg] Randy G Furlong Work Phone: [facility] DO Work Phone: 07-21-2022 08:15-0400 Diastolic blood pressure 88 mm[Hg] Randy G Furlong Work Phone: [facility] DO Work Phone: 07-21-2022 08:15-0400 Systolic blood pressure 122 mm[Hg] Randy G Furlong Work Phone: [facility] DO Work Phone: 07-21-2022 08:14-0400 Body height 180.34 cm Randy G Furlong Work Phone: [facility] DO Work Phone: 07-21-2022 08:14-0400 Body mass index (BMI) [Ratio] 30.82 kg/m2 Randy Normanlong Work Phone: [facility] [facility] DO Work Phone: 07-21-2022 08:14-0400 Body surface area Derived from formula 2.2 m2 Randy Normanlong Work Phone: [facility] DO Work Phone: 07-21-2022 08:14-0400 Body weight 100.25 kg Randy Cantung Work Phone: [facility] DO Work Phone: 07-21-2022 08:14-0400 Diastolic blood pressure 86 mm[Hg] Randy Normanlong Work Phone: [facility] DO Work Phone: 07-21-2022 08:14-0400 Heart rate 59 /min Randy Normanlong Work Phone: [facility] DO Work Phone: 07-21-2022 08:14-0400 Systolic blood pressure 132 mm[Hg] Randy Normanlong Work Phone: [facility] DO Work Phone: 07-14-2022 14:02-0400 Body temperature 99.32 [degF] Reid Bauer [facility] 07-14-2022 14:02-0400 Diastolic blood pressure 86 mm[Hg] Reid Bauer [facility] 07-14-2022 14:02-0400 Heart rate 76 /min Reid Bauer [facility] 07-14-2022 14:02-0400 SaO2% (BldA) [Mass fraction] 98 % Reid Bauer [facility] 07-14-2022 14:02-0400 Systolic blood pressure 120 mm[Hg] Reid Bauer [facility] 11-11-2021 19:25-0400 Body height 180.34 cm Jesusita Chirinosault Other [facility] Other 11-11-2021 19:25-0400 Body mass index (BMI) [Ratio] 28.59 kg/m2 Jesusita Chirinosault Other [facility] Other 11-11-2021 19:25-0400 Body temperature 98.1 [degF] Jesusita Chirinosault Other [facility] Other 11-11-2021 19:25-0400 Body weight 92.99 kg Jesusita Chirinosault Other [facility] Other 11-11-2021 19:25-0400 Respiratory rate 18 /min Jesusita Chirinosault Other [facility] Other 11-11-2021 19:25-0400 SaO2% (BldA) [Mass fraction] 96 % Jesusita Chirinosault Other [facility] Other Encounters Encounter Date Encounter Type Care Provider Facility Start: 11-01-2024 End: 11-01-2024 Telephone encounter Shanice Johnson RN [facility] Start: 10-27-2024 End: 10-27-2024 ambulatory Randy Calle DO Work Phone: [facility] Work Phone: Start: 10-27-2024 End: 10-27-2024 Patient encounter procedure Quincy Colbert MD [facility] Work Phone: Start: 10-26-2024 End: 10-26-2024 ambulatory MARISELA Eason CUEVAS [facility] Start: 10-26-2024 End: 10-26-2024 Postop follow up visit related to original px Marisela Cuevas RESTAURANT ASSISTANT MANAGER-PLATE CONDITIONER Work Phone: [facility] Comment on above: Breast wound, left, sequela (Primary Dx); Encounter for postoperative care; Complicated wound infection Start: 10-26-2024 End: 10-26-2024 Office outpatient visit 15 minutes Raymond Sepulveda MD Work Phone: [facility] Comment on above: 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 (CMS- HCC) (Primary Dx) Start: 10-07-2024 End: 10-14-2024 Patient encounter procedure Marcos Mcgill MD Work Phone: [facility] Start: 10-07-2024 End: 10-14-2024 Radiation Oncology Note Marcos Mcgill MD Work Phone: [facility] Comment on above: Completion Note Procedure Start: 10-07-2024 End: 10-07-2024 Telephone encounter Jhon Gross MD Work Phone: [facility] Start: 10-07-2024 End: 10-07-2024 ambulatory RICHIE HANNA Facility:[facility] Start: 10-07-2024 End: 10-07-2024 Subsequent hospital visit by physician Seth Main Ca (1.5t) Work Phone: Radiology Comment on above: 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 MARISELA CUEVAS [facility] Start: 09-26-2024 ambulatory RICHIE HANNA Facil ity:[facility] Start: 09-23-2024 End: 09-23-2024 Orders Only Richie Hanna RESTAURANT ASSISTANT MANAGER-PLATE CONDITIONER Work Phone: [facility] Comment on above: Reactive depression (Primary Dx); Anxiety 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 Start: 09-22-2024 End: 09-22-2024 ambulatory JHON GROSS [facility] Start: 09-22-2024 End: 09-23-2024 Telephone encounter Josue Mccain DO, PhD Work Phone: [facility] Start: 09-20-2024 End: 09-29-2024 Orders Only Richie L Jacques ROBER-PLATE CONDITIONER Work Phone: [facility] Start: 09-19-2024 End: 09-20-2024 Refill Richie Hanna ROBER-PLATE CONDITIONER Work Phone: [facility] Start: 09-16-2024 End: 09-16-2024 E-mail encounter from caregiver Alessandra Syed EVAN Work Phone: Hematology/Oncology Start: 09-16-2024 End: 09-16-2024 Follow-up encounter Alessandra Syed EVAN Work Phone: Hematology/Oncology Comment on above: Follow up Start: 09-16-2024 End: 09-16-2024 Postop follow up visit related to original px Geno Pierce EVAN Work Phone: Plastic Surgery Comment on above: Post-operative state (Primary Dx); S/P breast reconstruction; History of breast cancer Start: 09-16-2024 End: 09-16-2024 Patient encounter procedure Alessandra Syed EVAN Work Phone: Hematology/Oncology Start: 09-16-2024 End: 09-16-2024 ambulatory Alessandra Syed APRTaiPLATE CONDITIONER Work Phone: Hematology/Oncology Comment on above: Breast cancer metast asized to liver, unspecified laterality (HCC) (Primary Dx); Encounter for medication monitoring Start: 09-13-2024 End: 09-14-[address] [facility] Start: 09-08-2024 End: 09-08-2024 Office outpatient visit [...] Start: 09-08-2024 End: 09-08-2024 ambulatory SHEREEN SMALLWOOD [facility] Start: 09-07-2024 End: 09-08-2024 Radiation Oncology Note Sam Melo MD Work Phone: Radiation Oncology Comment on above: Procedure Simulation Note Completion Note Start: 09-07-2024 End: 09-08-2024 Patient encounter procedure Placement Neus Ca Ll Work Phone: Neurosurgery Comment on above: Secondary malignant neoplasm of brain (HCC) (Primary Dx) Start: 09-07-2024 End: 09-07-2024 Subsequent hospital visit by physician Seth Main Ca (1.5t) Work Phone: Radiology Comment on above: 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] Start: 09-07-2024 End: 09-07-2024 ambulatory Josue Mccain DO, PhD Work Phone: [facility] Comment on above: Cancer of right [address] metastatic to brain (HCC) (Primary Dx) Start: 09-05-2024 End: 09-05-2024 Telemedicine consultation with patient Marisela Cisneros MD Work Phone: Radiation Oncology Start: 09-05-2024 End: 09-05-2024 Telephone encounter [facility] Start: 09-05-2024 End: 09-05-2024 ambulatory Marisela Cisneros MD Work Phone: Radiation Oncology Comment on above: 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) Start: 09-01-2024 ambulatory RICHIE HANNA Facil ity:[facility] Start: 08-31-2024 End: 09-07-2024 Telephone encounter Jhon Gross MD Work Phone: [facility] Start: 08-26-2024 End: 09-01-2024 Evaluation and management of inpatient RICHIE HANNA Facility:[facility] Start: 08-25-2024 End: 08-25-2024 Orders Only Richie Hanna RESTAURANT ASSISTANT MANAGER-PLATE CONDITIONER Work Phone: [facility] Start: 08-24-2024 Registered Recurring Shereen Smallwood PA-C -Infusion Therapy - O/P Work Phone: Start: 08-24-2024 ambulatory Shereen Smallwood Faci lity:[facility] Start: 08-18-2024 End: 08-18-2024 Postop follow up visit related to original px Shereen Smallwood PA-C Work Phone: [facility] Comment on above: Breast wound, left, sequela (Primary Dx); Complicated wound infection Start: 08-18-2024 End: 08-18-2024 ambulatory SHEREEN A SELIN [facility] Start: 08-17-2024 End: 08-17-2024 ambulatory GENERIC RESEARCH [facility] Start: 08-16-2024 End: 08-17-[address] [facility] Start: 08-12-2024 End: 08-12-2024 Telephone encounter Jhon Gross MD Work Phone: [facility] Start: 08-12-2024 End: 08-12-2024 Evaluation and management of inpatient [facility] Start: 08-11-2024 End: 08-11-2024 Evaluation and management of inpatient [facility] Start: 08-10-2024 End: 08-10-2024 ambulatory DHRUV WHITE [facility] Start: 08-10-2024 End: 08-10-2024 Transitional care manage srvc 14 day discharge Dhruv White DO Work Phone: [facility] Comment on above: Mycobacterium absces nathan infection (Primary Dx); Malignant neoplasm of lower-inner quadrant of right breast of female, estrogen receptor positive ([facility]) Start: 08-10-2024 End: 08-12-2024 Follow-up encounter Bobby Christy MD Work Phone: Hematology/Oncology Start: 08-10-2024 End: 08-11-2024 [facility] Phone [facility] [address] [facility] On [facility] Start: 08-09-2024 End: 08-09-2024 Telephone encounter Jhon Gross MD Work Phone: [facility] Start: 08-08-2024 End: 08-08-2024 [facility] Start: 08-08-2024 End: 08-08-2024 Postop follow up visit related to original px Shereen Janeaux PA-C Work Phone: [facility] Comment on above: Breast wound, left, sequela (Primary Dx); Complicated wound infection Start: 08-04-2024 End: 08-04-2024 Orders Only Shereen Smallwood PA-C Work Phone: [facility] Start: 08-03-2024 End: 08-03-2024 [facility] Start: 08-03-2024 End: 08-03-2024 Postop follow up visit related to original px Shereen Castilloreaux PA-C Work Phone: [facility] Comment on above: Breast wound, left, sequela (Primary Dx); Mycobacterium abscessus infection; Complicated wound infection Start: 07-27-2024 End: 07-27-2024 E-mail encounter from caregiver [facility] Provider Hematology/Oncology Start: 07-27-2024 End: 07-27-2024 Office outpatient visit 10 minutes Raymond Sepulveda MD Work Phone: [facility], A Department of [facility] Comment on above: Pelvic mass in femal e (Primary Dx) Start: 07-27-2024 End: 07-29-2024 ambulatory [facility] Provider Hematology/Oncology Comment on above: Xeloda restart Start: 07-22-2024 End: 07-27-2024 Telephone encounter Bobby Christy MD Work Phone: Hematology/Oncology Comment on above: 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 Start: 07-21-2024 End: 07-22-2024 ambulatory [facility] Facility:[facility] Start: 07-19-2024 End: 07-19-2024 Patient encounter procedure Krystin Barillas MD Work Phone: Infectious Disease Comment on above: Abscess (Primary Dx) ; 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 Start: 07-19-2024 End: 07-19-2024 [facility] Facility:[facility] Start: 07-18-2024 End: 07-18-2024 Telephone encounter Jhon Gross MD Work Phone: [facility] Start: 07-15-2024 End: 07-15-2024 Evaluation and management of inpatient [facility] Start: 07-15-2024 End: 07-15-2024 Admission to [facility] Phone Call Provider 4 [facility] Pre-Ad[facility] Clinic On [facility] Start: 07-14-2024 End: 07-14-2024 ambulatory [facility] Start: 07-14-2024 End: 07-14-2024 Office outpatient visit 25 minutes [facility] RESTAURANT ASSISTANT MANAGER-PLATE CONDITIONER Work Phone: [facility] Comment [...] Reconstructive Surgery Start: 07-11-2024 End: 07-11-2024 ambulatory MARISELA A [facility] Start: 07-11-2024 End: 07-11-2024 Postop follow up visit related to original monalisa Cuevas RESTAURANT ASSISTANT MANAGER-PLATE CONDITIONER Work Phone: [facility] Comment on above: Encounter for postop erative care (Primary Dx); Breast wound, left, sequela; S/P breast reconstruction, bilateral; Mycobacterium abscessus infection Start: 07-11-2024 End: 07-11-2024 Telephone encounter Marisela Cuevas RESTAURANT ASSISTANT MANAGER-PLATE CONDITIONER Work Phone: [facility] Start: 07-11-2024 End: 07-11-2024 [facility] Start: 07-06-2024 End: 07-06-2024 Postop follow up visit related to original px Marisela Cuevas RESTAURANT ASSISTANT MANAGER-PLATE CONDITIONER Work Phone: [facility] Comment on above: Encounter for postop erative care (Primary Dx); Seroma of breast; Breast wound, left, sequela; S/P breast reconstruction, bilateral Start: 07-06-2024 End: 07-06-2024 [facility] Start: 07-06-2024 End: 07-06-2024 [facility] Start: 07-01-2024 End: 07-01-2024 ambulatory [facility] Start: 06-30-2024 End: 06-30-2024 ambulatory [place] [facility] Start: 06-30-2024 End: 06-30-2024 [facility] Start: 06-29-2024 End: 06-29-2024 Postop follow up visit related to original monalisa Cuevas RESTAURANT ASSISTANT MANAGER-PLATE CONDITIONER Work Phone: [facility] Comment on above: Encounter for postop erative care (Primary Dx); Seroma of breast; Breast wound, left, sequela; Mycobacterium abscessus infection; S/P breast reconstruction, bilateral Start: 06-29-2024 End: 06-29-2024 [facility] Start: 06-29-2024 End: 06-29-2024 ambulatory RAYMOND Berry DERICK [facility] Start: 06-29-2024 End: 06-29-2024 Office outpatient visit 10 minutes Raymond Sepulveda MD Work Phone: [facility] A Department of [facility] Comment on above: Pelvic mass in femal e (Primary Dx) Start: 06-24-2024 End: 06-27-2024 Telephone encounter Viviane Lopez CMA [facility] Start: 06-22-2024 End: 06-22-2024 Postop follow up visit related to original px Marisela Eason [place] RESTAURANT ASSISTANT MANAGER-PLATE CONDITIONER Work Phone: [facility] Comment on above: Encounter for postop erative care (Primary Dx); Breast wound, left, sequela Start: 06-22-2024 End: 06-22-2024 [facility] Start: 06-20-2024 End: 06-20-2024 Chart abstracting Kesha Apple MD Work Phone: Infectious Disease Start: 06-20-2024 End: 06-27-2024 Telephone encounter Viviane Lopez CMA [facility] Start: 06-16-2024 End: 06-16-2024 Telephone encounter Noreen Bro RN [facility] Comment on above: Care Navigation Start: 06-15-2024 End: 06-15-2024 Evaluation and management of inpatient [facility] Start: 06-13-2024 ambulatory [facility] Start: 06-12-2024 ambulatory [facility] Start: 06-11-2024 End: 06-15-2024 Evaluation and management of inpatient [facility] Start: 06-10-2024 End: 06-15-2024 Evaluation and management of inpatient CARLENE U MANSOOR [facility] Start: 06-10-2024 End: 06-10-2024 Telephone encounter Kendra Lewis [facility] Allen garcia Comment on above: Breast Problem Start: 06-08-2024 End: 06-08-2024 ambulatory TRISH LOMBARDO [facility] Start: 06-08-2024 End: 06-08-2024 Postop follow up visit related to original px Trish Adrianrick CONTE Work Phone: [facility] Comment on above: Encounter for postop erative care (Primary Dx); Breast wound, left, sequela; Erythema of breast; Seroma of breast; Mycobacterium abscessus infection; S/P breast reconstruction, bilateral; Acquired absence of breast, bilateral; History of breast cancer Start: 06-08-2024 End: 06-08-2024 ambulatory RAYMOND Berry DERICK [facility] Start: 06-08-2024 End: 06-08-2024 Office outpatient visit 10 minutes Raymond Sepulveda MD Work Phone: [facility] A Department [facility] Comment on above: Malignant neoplasm o f lower-inner quadrant of right breast of female, estrogen receptor positive (CMS-HCC) (Primary Dx); Pelvic mass in female Start: 06-03-2024 End: 06-03-2024 Patient encounter procedure Randylinnea Normanlong DO Work Phone: [facility] Work Phone: Start: 06-03-2024 End: 06-03-2024 ambulatory Randy Furlong DO Work Phone: [facility] Work Phone: Start: 06-01-2024 End: 06-01-2024 Bamboo flowsheet Evan Jay DO Work Phone: [facility] Start: 06-01-2024 End: 06-03-2024 Bamboo flowsheet Evan Jay DO Work Phone: [facility] Start: 06-01-2024 End: 06-03-2024 Clinisync Result Encounter Evan Jay DO Work Phone: [facility] External Department Unsolicited Start: 06-01-2024 End: 06-01-2024 Telephone encounter Marisela Cuevas RESTAURANT ASSISTANT MANAGER-PLATE CONDITIONER Work Phone: [facility] Start: 06-01-2024 End: 06-01-2024 ambulatory EVAN THOMPSON Not Available Start: 06-01-2024 End: 06-01-2024 Patient encounter procedure Evan Morao DO Work Phone: [facility] Work Phone: Start: 06-01-2024 End: 06-01-2024 Periodic preventive med est patient 40-64yrs Evan Morao DO Work Phone: [facility] Comment on above: Well woman exam with routine gynecological exam; Breast cancer screening by mammogram; Postmenopausal state Start: 06-01-2024 End: 06-01-2024 ambulatory [facility] Start: 06-01-2024 End: 06-01-2024 Postop follow up visit related to original px Marisela Cuevas RESTAURANT ASSISTANT MANAGER-PLATE CONDITIONER Work Phone: [facility] Comment on above: Encounter for postop erative care (Primary Dx); Breast wound, left, sequela; Seroma of breast; Mycobacterium abscessus infection; S/P breast reconstruction, bilateral Start: 05-31-2024 ambulatory JUHI Jean [facility] Start: 05-24-2024 Evaluation and management of inpatient ADA JACQUES [facility] Start: 05-23-2024 Emergency department patient visit KAVON VEGAS [facility] Start: 05-23-2024 End: 05-27-2024 Evaluation and management of inpatient HARIS LAY [facility] Start: 05-23-2024 End: 05-23-2024 Telephone encounter Raymond Sepulveda MD Work Phone: [facility] A Department [facility] Comment on above: Procedure Start: 05-22-2024 End: 05-22-2024 Emergency department patient visit Bárbara Garcia [facility] Start: 05-20-2024 End: 05-20-2024 ambulatory GENERIC RESEARCH [facility] Start: 05-20-2024 End: 05-20-2024 ambulatory HERMAN LUI [facility] Start: 05-19-2024 End: 05-19-2024 Discharged Recurring Randy Calle DO Work Phone: [facility] - [facility] Work Phone: Start: 05-19-2024 Registered Recurring Randy lora DO Work Phone: [facility] - [facility] Work Phone: Start: 05-19-2024 End: 05-19-2024 ambulatory Randy Calle DO Work Phone: [facility] Work Phone: Start: 05-18-2024 End: 05-18-2024 ambulatory SHEREEN SMALLWOOD [facility] Start: 05-18-2024 End: 05-18-2024 Postop follow up visit related to original px Shereen DUFFY-Jamal [facility] Comment on above: Breast wound, left, sequela (Primary Dx) Start: 05-12-2024 End: 05-12-2024 Admission to [facility] Phone Call Provider 1 Khushboo Sultana Pre-Ad[facility] Clinic On [facility] Start: 05-12-2024 End: 05-12-2024 Telephone encounter Bobby Oetro [facility] Division [facility] - MRI Start: 05-12-2024 End: 05-12-2024 Evaluation and management of inpatient RICHIE L JACQUES [facility] Start: 05-02-2024 End: 05-13-2024 Evaluation and management of inpatient CARLENE U MANSOOR [facility] Start: 05-01-2024 Non-patient / Non-visit Randy Calle DO Work Phone: [facility] Work Phone: Start: 04-29-2024 End: 05-02-2024 Documentation procedure Marisela Cuevas APRN-PLATE CONDITIONER Work Phone: [facility] Start: 04-28-2024 End: 04-28-2024 Postop follow up visit related to original px Jhon Gross MD Work Phone: [facility] Comment on above: Encounter for postop erative care (Primary Dx); Seroma of breast; S/P breast reconstruction, bilateral; Breast wound, left, sequela Start: 04-28-2024 End: 04-28-2024 ambulatory JHON GROSS [facility] Start: 04-26-2024 End: 04-26-2024 ambulatory Evan Jay DO Work Phone: [facility] Work Phone: Start: 04-26-2024 End: 04-26-2024 Patient encounter procedure Evan Jay DO Work Phone: [facility] Ambulatory Work Phone: Start: 04-26-2024 End: 04-26-2024 Telephone encounter Viviane Lopez CMA [facility] Start: 04-22-2024 End: 04-22-2024 Telephone encounter Marisela Cuevas RESTAURANT ASSISTANT MANAGER-PLATE CONDITIONER Work Phone: [facility] Start: 04-21-2024 End: 04-21-2024 Bamboo flowsheet Evan Jay DO Work Phone: [facility] Start: 04-21-2024 End: 04-21-2024 Bamboo flowsheet Evan Jay DO Work Phone: [facility] Start: 04-21-2024 End: 04-21-2024 Postop follow up visit related to original px Evan Thompson DO Work Phone: [facility] Comment on above: Postoperative follow -up Start: 04-21-2024 End: 04-21-2024 ambulatory EVAN THOMPSON Not Available Start: 04-20-2024 End: 04-20-2024 Postop follow up visit related to original monalisa Eason [place] RESTAURANT ASSISTANT MANAGER-PLATE CONDITIONER Work Phone: [facility] Comment on above: Encounter for postop erative care (Primary Dx); Seroma of breast; S/P breast reconstruction, bilateral; Breast wound, left, sequela Start: 04-20-2024 End: 04-20-2024 [facility] Start: 04-20-2024 End: 04-20-[address] [facility] Start: 04-13-2024 End: 04-13-2024 Bamboo flowsheet Nasreen Yumi Li [facility] Work Phone: [facility] Start: 04-13-2024 End: 04-13-2024 Bamboo iLumenheet Nasreen Yumi [facility] Work Phone: [facility] Start: 04-13-2024 End: 04-13-2024 Postop follow up visit related to original monalisa Eason [place] RESTAURANT ASSISTANT MANAGER-PLATE CONDITIONER Work Phone: [facility] Comment on above: Encounter for postop erative care (Primary Dx); Seroma of breast; S/P breast reconstruction, bilateral; Mycobacterium abscessus infection; Breast wound, left, sequela Start: 04-13-2024 End: 04-13-2024 [facility] Start: 04-13-2024 End: 04-13-2024 Office outpatient new 60 minutes Raymond Sepulveda MD Work Phone: [facility] Department [facility] Comment on above: Malignant neoplasm o [...] Unsolicited Start: 04-07-2024 End: 04-07-2024 ambulatory Randy Normanlong DO Work Phone: [facility] Work Phone: Start: 04-07-2024 End: 04-07-2024 Departed Referred Randy Normanlong DO Work Phone: [facility] Start: 04-07-2024 End: 04-07-2024 ambulatory Ulisses Angeles GONSALEZ Facility:[id number] Start: 03-30-2024 End: 03-30-2024 Postop follow up visit related to original px Marisela Cuevas RESTAURANT ASSISTANT MANAGER-PLATE CONDITIONER Work Phone: [facility] Comment on above: Encounter for postop erative care (Primary Dx); S/P breast reconstruction, bilateral; Mycobacterium abscessus infection; Breast wound, left, sequela Start: 03-30-2024 End: 03-30-2024 ambulatory MARISELA CUEVAS [facility] Start: 03-21-2024 End: 03-21-2024 Evaluation and management of inpatient [facility] Start: 03-21-2024 End: 03-21-2024 Evaluation and management of inpatient [facility] Start: 03-18-2024 End: 03-18-2024 Evaluation and management of inpatient RICHIE HANNA [facility] Start: 03-18-2024 End: 03-18-2024 Admission to [facility] Phone Call Provider 4 Khushboo Sultana Pre-Admission Clinic On [facility] Start: 03-16-2024 End: 03-16-2024 ambulatory JOSSY MOODY [facility] Start: 03-15-2024 End: 03-15-2024 Telephone encounter Alton Me[facility]ia [facility] Start: 03-14-2024 End: 03-14-2024 ambulatory Randy Furlong DO Work Phone: [facility] Work Phone: Start: 03-14-2024 End: 03-14-2024 Patient encounter procedure Randy Furlong DO Work Phone: [facility] Work Phone: Start: 03-10-2024 End: [...] Healthcare Start: 03-10-2024 End: 03-10-2024 ambulatory JHON GROSS [facility] Start: 03-10-2024 End: 03-10-2024 Postop follow up visit related to original px Jhon Gross MD [facility] Comment on above: Postoperative visit (Primary Dx); Mycobacterium abscessus infection; S/P breast reconstruction, bilateral; Malignant neoplasm of lower-inner quadrant of right breast of female, estrogen receptor positive ([facility]) Start: 03-03-2024 End: 03-03-2024 Postop follow up visit related to original px Jhon Gross MD Work Phone: [facility] Comment on above: Mycobacterium absces nathan infection (Primary Dx); S/P breast reconstruction, bilateral; Malignant neoplasm of lower-inner quadrant of right breast of female, estrogen receptor positive ([facility] Start: 03-03-2024 End: 03-03-[address] [facility] Start: 03-02-2024 End: 03-02-2024 Telephone encounter Arlet Selby [facility] Comment on above: critical lab Start: 02-29-2024 End: 03-17-2024 Telephone encounter Joya Gray [facility] Start: 02-26-2024 End: 02-26-2024 [facility] Start: 02-26-[facility]24 End: 02-26-2024 [facility] Start: 02-25-2024 End: 02-25-2024 [facility] Start: 02-23-2024 End: 02-25-2024 Telephone encounter Graciela Borges CMA [facility] Comment on above: Post-op Problem Start: 02-19-2024 ambulatory Rusty Horton Facility: [facility] Start: 02-17-2024 End: 02-17-2024 ambulatory GENERIC RESEARCH [facility] Start: 02-16-2024 End: 02-16-[address] [facility] Start: 02-15-2024 End: 02-15-2024 Office [...] encounter procedure Randy Furlong DO Work Phone: [facility] Infect Dis Work Phone: Start: 02-10-2024 End: 02-10-2024 Telephone encounter Yves Coffey MD Work Phone: [facility] Start: 02-10-2024 Registered Recurring Randy Fu rlong DO Work Phone: [facility] Acute Work Phone: Start: 02-08-2024 Non-patient / Non-visit Randy Furlong DO Work Phone: [facility] Work Phone: Start: 02-01-2024 End: 02-01-2024 ambulatory YVES COFFEY Not Available Start: 02-01-2024 End: 02-01-2024 Bamporsche Coffey MD Work Phone: [facility] Start: 02-01-2024 End: 02-01-2024 Jossue Coffey MD Work Phone: [facility] Start: 02-01-2024 Non-patient / Non-visit Randy Furlong DO Work Phone: [facility] Work Phone: Start: 01-27-2024 Non-patient / Non-visit Randy Furlong DO Work Phone: [facility] Work Phone: Start: 01-27-2024 End: 01-27-2024 Jossue Coffey MD Work Phone: [facility] Start: 01-27-2024 End: 01-27-2024 Jossue Coffey MD Work Phone: [facility] Start: 01-27-2024 End: 01-27-2024 ambulatory YVES COFFEY Not Available Start: 01-26-2024 End: 01-27-2024 Patient encounter procedure Yves Coffey MD Work Phone: [facility] Comment on above: Anaphylaxis, subsequ ent encounter (Primary Dx) Start: 01-25-2024 End: 01-25-2024 Jossue Coffey MD Work Phone: [facility] Start: 01-25-2024 End: 01-25-2024 Jossue Coffey MD Work Phone: [facility] Start: 01-25-2024 End: 01-25-2024 Office outpatient new 60 minutes Yves Coffey MD Work Phone: [facility] Comment on above: Adverse effect of do xycycline, initial encounter (Primary Dx) Start: 01-25-2024 End: 01-25-2024 ambulatory YVES COFFEY Not Available Start: 01-19-2024 Non-patient / Non-visit Randylinnea Normanlong DO Work Phone: [facility] Work Phone: Start: 01-15-2024 End: 01-15-2024 ambulatory GENERIC RESEARCH [facility] Start: 01-15-2024 End: 01-15-[address] [facility] Start: 01-14-2024 Non-patient / Non-visit Randy Furlong DO Work Phone: [facility] Work Phone: Start: 01-13-2024 Non-patient / Non-visit Randy Furlong DO Work Phone: [facility] Work Phone: Start: 12-30-2023 [...] (CMS/HCC) Start: 12-30-2023 End: 12-30-2023 ambulatory SC[facility] Start: 12-29-2023 Non-patient / Non-visit Randy Furlong DO Work Phone: [facility] Work Phone: Start: 12-29-2023 Registered Recurring DO Rnady Furlong Work Phone: [facility] Acute Work Phone: Start: 12-29-2023 End: 12-29-2023 ambulatory DO Randy Furlong Work Phone: [facility] Work Phone: Start: 12-29-2023 End: 12-29-2023 Patient encounter procedure DO Randy Furlong Work Phone: [facility] Work Phone: Start: 12-29-2023 End: 12-29-2023 ambulatory [place] Y[facility] Start: 12-29-2023 End: 12-29-2023 Postop follow up [...] 12-28-2023 Emergency department patient visit Rusty Horton [facility] Start: 12-21-2023 End: 12-21-2023 [facility] Start: 12-21-2023 End: 12-21-2023 Postop follow up visit related to original px Marisela Cuevas RESTAURANT ASSISTANT MANAGER-PLATE CONDITIONER Work Phone: [facility] Comment on above: Encounter for postop erative care (Primary Dx); Acquired absence of breast, bilateral; S/P breast reconstruction, bilateral Start: 12-16-2023 End: 12-16-2023 Telephone encounter Deborah SUN [facility] Start: 12-14-2023 End: 12-14-2023 Postop follow up visit related to original px Marisela Cuevas RESTAURANT ASSISTANT MANAGER-PLATE CONDITIONER Work Phone: [facility] Comment on above: Encounter for postop erative care (Primary Dx); Acquired absence of breast, bilateral; S/P breast reconstruction, bilateral; Infection of breast implant, subsequent encounter Malignant neoplasm o f lower-inner quadrant of right breast of female, estrogen receptor positive (CMS-HCC) (Primary Dx) Start: 12-14-2023 End: 12-14-2023 ambulatory SUZETTE MASON [facility] Start: 12-11-2023 End: 12-14-2023 Telephone encounter [facility] Comment on above: Transition Of Care Start: 12-11-2023 End: 12-11-2023 ambulatory SANDRITA HINDSIS [facility] Start: 12-09-2023 End: 12-09-2023 [facility] Start: 12-08-2023 End: 12-08-2023 Orders Only Gino Flower RESTAURANT ASSISTANT MANAGER-PLATE CONDITIONER Work Phone: [facility] Infect[facility] Comment on above: Acid fast bacillus ( Primary Dx); 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 Start: 12-05-2023 End: 12-09-2023 Evaluation and management of inpatient [facility] Start: 12-04-2023 End: 12-09-2023 Evaluation and management of inpatient [facility] Start: 12-03-2023 End: 12-03-2023 Orders Only Gino Flower APRN-PLATE CONDITIONER Work Phone: [facility] Infectious Disease Comment on above: Acid fast bacillus ( Primary Dx) Start: 12-02-2023 End: 12-09-2023 Evaluation and management of inpatient Kayleigh Hartley DO Work Phone: [facility] - 7 Oncology/Stroke Comment on above: MIRNA (acute kidney in jury) ([facility]) (Primary Dx); Infection of deep incisional surgical site after procedure, initial encounter; 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; Infection of deep incisional surgical site after procedure, subsequent encounter Start: 12-02-2023 End: 12-02-2023 Documentation procedure Gino Flower APRN-PLATE CONDITIONER Work Phone: [facility] Start: 12-02-2023 End: 12-02-2023 Telephone encounter [facility] Comment on above: Transition Of Care Fever Start: 12-02-2023 End: 12-02-2023 [facility] Start: 12-02-2023 End: 12-02-2023 Postop follow up visit related to original px Jhon Gross MD Work Phone: [facility] Comment on above: Encounter for postop erative care (Primary Dx); Acquired absence of breast, bilateral; S/P breast reconstruction, bilateral; Infection of breast implant, subsequent encounter Start: 12-01-2023 End: 12-01-2023 ambulatory DO Randy Anaheim Work Phone: [facility] Work Phone: Start: 12-01-2023 End: 12-01-2023 Patient encounter procedure DO [facility] Work Phone: [facility] Work Phone: Start: 11-30-2023 End: 11-30-2023 ambulatory [facility] Yamila [facility] Start: 11-28-2023 End: 11-28-2023 Telephone encounter Concha Mcgregor [facility] Zhen garcia Comment on above: Medication Reaction Start: 11-26-2023 End: 11-30-2023 ambulatory [facility] Start: 11-26-2023 End: 11-26-2023 Postop follow up visit related to original px Jhon Gross MD Work Phone: [facility] Comment on above: Cellulitis of left b reast (Primary Dx); S/P breast reconstruction, bilateral Start: 11-26-2023 End: 11-26-2023 ambulatory JHON GROSS [facility] Start: 11-25-2023 End: 11-25-2023 ambulatory [facility] Start: 11-25-2023 End: 11-25-2023 Postop follow up visit related to original px Marisela Yumi Giovanni RESTAURANT ASSISTANT MANAGER-PLATE CONDITIONER Work Phone: [facility] Comment on above: Encounter for postop erative care (Primary Dx); Acquired absence of breast, bilateral Start: 11-25-2023 End: 11-25-2023 [facility] Start: 11-18-2023 End: 11-18-2023 Postop follow up visit related to original Marisela Cuevas RESTAURANT ASSISTANT MANAGER-PLATE CONDITIONER Work Phone: [facility] Comment on above: Encounter for postop erative care (Primary Dx); Malignant neoplasm of lower-inner quadrant of right breast of female, estrogen receptor positive (CMS-HCC); Acquired absence of breast, bilateral; S/P breast reconstruction, bilateral Start: 11-18-2023 End: 11-18-2023 [facility] Start: 11-11-2023 End: 11-11-2023 Postop follow up visit related to original Marisela Yumi [place] [facility]URANT [facility] Work Phone: [facility] Comment on above: Encounter for postop erative care (Primary Dx); S/P breast reconstruction, bilateral; Malignant neoplasm of lower-inner quadrant of right breast of female, estrogen receptor positive (CMS-HCC); Acquired absence of breast, bilateral Start: 11-11-2023 End: 11-11-2023 [facility] Start: 11-04-2023 End: 11-04-2023 Postop follow up visit related to original Marisela Eason [place] RESTAURANT ASSISTANT [facility] Work Phone: [facility] Comment on above: Encounter for postop erative care (Primary Dx); Malignant neoplasm of lower-inner quadrant of right breast of female, estrogen receptor positive (CMS-HCC); Acquired absence of breast, bilateral; S/P breast reconstruction, bilateral Start: 11-04-2023 End: 11-04-2023 [facility] Start: 10-23-2023 End: 10-23-2023 Social Work Valentine Goldberg [facility] Division of [facility] - Radiation Oncology Start: 10-20-2023 End: 10-20-2023 Social Work Valentine Goldberg [facility] - Radiation Oncology Start: 10-16-2023 End: 10-16-2023 Social Work Valentine Goldberg [facility] Radiation Oncology Start: 10-14-2023 End: 10-16-2023 Social Work Valentine Goldberg [facility] - Radiation Oncology Start: 10-01-2023 End: 10-01-2023 ambulatory DO Randy Furlong Work Phone: [facility] Work Phone: Start: 10-01-2023 End: 10-01-2023 Patient encounter procedure DO Randy Furlong Work Phone: [facility] Work Phone: Start: 10-01-2023 Registered Recurring DO Randy Furlong Work Phone: [facility] Work Phone: Start: 09-29-2023 End: 09-29-2023 Social Work Valentinealin Goldberg [facility] - Radiation Oncology Start: 09-28-2023 End: 10-07-2023 Telephone encounter Richie Hanna RESTAURANT ASSISTANT MANAGER-PLATE CONDITIONER Work Phone: [facility] Start: 09-14-2023 End: 09-15-2023 Refill Richie Hanna RESTAURANT ASSISTANT MANAGER-PLATE CONDITIONER Work Phone: [facility] - [facility] Medicine Start: 08-20-2023 End: 08-27-2023 Social Work Valentine Rodriguezmadelaine [facility] - Radiation Oncology Start: 08-20-2023 End: 08-20-2023 Office outpatient new 45 minutes Jhon Gross MD Work Phone: [facility] Comment on above: Malignant neoplasm o f lower-inner quadrant of right breast of female, estrogen receptor positive (CMS-HCC) Start: 08-06-2023 End: 08-06-2023 Social Work [facility] - Radiation Oncology Start: 08-03-2023 End: 08-03-2023 Social Work [facility] Start: 07-30-2023 End: 07-30-2023 Office outpatient visit 40 minutes Christy He MD Work Phone: [facility] Surgical Oncology Comment on above: Malignant neoplasm o f lower-inner quadrant of right breast of female, estrogen receptor positive ([facility]) (Primary Dx) Start: 06-04-2023 End: 06-04-2023 ambulatory Sandrita WILLETT Facility:[facility] Start: 06-04-2023 End: 06-04-2023 Patient encounter procedure Sandrita WILLETT [facility] [place] Start: 05-26-2023 Patient encounter procedure Georgiana Justice DO Work Phone: [facility] Start: 05-26-2023 ambulatory Rusty Clifford Facility: [facility] Start: 05-21-[address] [facility] Yue Tellez RESTAURANT ASSISTANT MANAGER-PLATE CONDITIONER Work Phone: [facility] Start: 05-21-2023 ambulatory Yue huggins RESTAURANT ASSISTANT MANAGER-PLATE CONDITIONER Work Phone: [facility] Start: 05-14-2023 Telephone encounter Niurka Briggsedicyumi [facility] [place] - Mamm[facility] Start: 05-12-2023 Telephone encounter Ike Irvin RN [facility] [place] - Mamm[facility] Start: 05-08-2023 Documentation procedure Niurka dorman RN [facility] [place] - Mammography Start: 04-28-2023 End: 04-28-2023 Office outpatient new 60 minutes Christy He MD Work Phone: [facility] Comment on above: Malignant neoplasm o f lower-inner quadrant of right breast of female, estrogen receptor positive (CMS-HCC) (Primary Dx); Mass of lower inner quadrant of right breast Start: 04-14-2023 End: 04-14-2023 ambulatory [facility] Start: 04-10-2023 End: 04-10-2023 Patient encounter procedure Sandrita WILLETT General Surgery [facility] [place] Start: 04-06-2023 End: 04-06-2023 Patient encounter procedure Chantal Bear [facility] Start: 04-02-2023 End: 04-02-2023 Office outpatient visit 15 minutes Evan Thompson DO Work Phone: [facility] OB Comment on above: Mammogram abnormal; Invasive ductal carcinoma of breast, right (CMS/HCC) Start: 03-26-2023 End: 03-26-2023 ambulatory DO Randy Esterzach Work Phone: [facility] Work Phone: Start: 03-26-2023 End: 03-26-2023 Departed Referred DO Randy Esterzach Work Phone: [facility] Start: 03-20-2023 End: 03-20-2023 Patient encounter procedure BRITTANI SANTOS [facility] Start: 10-15-2022 Chart Update Randy stewart [facility]: [facility] Work Phone: Start: 10-14-2022 ambulatory BRITTANI SANTOS Facili ty:[id number] Start: 09-29-2022 Patient encounter procedure Randy Calle Work Phone: [facility] 250 DO Work Phone: Start: 09-29-2022 ambulatory Ms. Brittani Santos Facility: Start: 09-12-[address] Shanon Tyler II Facility: Start: 09-12-2022 Office outpatient vi sit 5 minutes Randy Jaramillo Furlong Work Phone: [facility] 250 DO Work Phone: Start: 08-22-[address] Shanon Tyler II Facility: Start: 08-22-2022 Office outpatient vi sit 5 minutes Randy Jaramillo Furlong Work Phone: [facility] 250 DO Work Phone: Start: 08-18-2022 Chart Update Randy Jaramillo Furlo ng Work Phone: [facility] 250 DO Work Phone: Start: 08-15-2022 End: 08-15-2022 Patient encounter procedure Shanon Tyler [facility] Start: 07-21-[address] Shanon Tyler II Facility: Start: 07-14-2022 End: 07-14-2022 Patient encounter procedure Reid Bauer [facility] Start: 12-27-2021 End: 12-27-[address] DAYANA BASHIR Facility:[facility] Start: 12-13-2021 End: 12-14-[address] KAYE MANUEL Facility:[facility] Start: 11-22-2021 End: 11-22-2021 ambulatory Hua Oglesby Facility:[facility] Start: 11-11-2021 End: 11-11-2021 ambulatory Jesusita Gee Other Renick Truzip Other Start: 11-11-2021 Office outpatient vi sit 15 minutes Jesusita Gee [facility] Start: 08-26-2021 End: 08-28-2021 ambulatory Hua Lutherston Facility:[facility] Start: 08-22-2021 End: 08-22-2021 ambulatory [facility] Facility:[facility] Start: 08-13-2021 End: 08-13-2021 ambulatory [facility] Facility:[facility] Start: 01-21-2021 End: 01-21-2021 ambulatory [facility] Facility:[facility] Start: 01-04-2021 End: 01-05-2021 ambulatory [facility] Facility: [facility] Procedures Date Procedure Procedure Detail Performing Clinician Start: 10-18-2024 Follow-up visit Follow-up HERMAN LUI Start: 10-07-2024 Ct guidance stereota ctic localization [...] Work Phone: Start: 04-28-2024 Follow-up visit Follow-up KIABECKA SUBHASH GROSS Start: 04-13-2024 AUDITORY FUNCTION TESTS Nasreen Li [facility] Work Phone: Start: 04-07-2024 ALL CBC WITH AUTO DIFF Evandiandra Thompson DO Work Phone: Start: 03-30-2024 Adult depression screening assessment Marisela Giovanni RESTAURANT ASSISTANT MANAGER-PLATE CONDITIONER Work Phone: Start: 12-09-2023 Comprehensive metabo lic panel Chris Hollis PA-C Work Phone: Start: 12-08-2023 Potassium serum plasma/whole blood Amy Singh MD Work Phone: Start: 12-08-2023 Assay of magnesium Amy dennison MD Work Phone: Start: 12-08-2023 Comprehensive metabo lic panel Chris Hollis PA-C Work Phone: Start: 12-07-2023 Comprehensive metabo lic panel Chris Hollis PA-C Work Phone: Start: 12-06-2023 Assay of magnesium Radha Valdez Valle RESTAURANT ASSISTANT MANAGER-PLATE CONDITIONER Work Phone: Start: 12-06-2023 Urnls dip stick/tabl et rgnt auto w/o microscopy Liliane Valdez Valle RESTAURANT ASSISTANT MANAGER-PLATE CONDITIONER Work Phone: Start: 12-06-2023 Comprehensive metabo lic panel Chris Hollis PA-C Work Phone: Start: 12-05-2023 Assay of magnesium Oliv irwin Valdez Valle RESTAURANT ASSISTANT MANAGER-PLATE CONDITIONER Work Phone: Start: 12-05-2023 Radiologic exam ches t single view Liliane Valdez Valle RESTAURANT ASSISTANT MANAGER-PLATE CONDITIONER Work Phone: Start: 12-05-2023 RESP PATHOGENS PANEL/SARS-COV-2 Liliane Valdez Valle RESTAURANT ASSISTANT MANAGER-PLATE CONDITIONER Work Phone: Start: 12-05-2023 End: 12-05-2023 Culture [...] Start: 12-03-2023 Assay of magnesium Oliv ia M Valle RESTAURANT ASSISTANT MANAGER-PLATE CONDITIONER Work Phone: Start: 12-03-2023 Ecg routine ecg [...] Culture bacterial quanttative colony count urine Kayleigh Hartley DO Work Phone: Start: 12-02-2023 Urnls dip stick/tabl et rgnt auto w/o microscopy Kayleigh Hartley DO Work Phone: Start: 12-02-2023 End: 12-02-2023 Comprehensive metabolic panel Kayleigh Hartley DO Work Phone: Start: 10-16-2023 Mammography Georgiana bangura DO Work Phone: Start: 06-01-2023 Microscopic observat ion [Identifier] in Cervix by Cyto stain Evan Thompson DO Work Phone: Start: 06-01-2023 Cytp cerv/vag auto t hin layer prep mnl screen Evandiandra Morao DO Work Phone: Start: 03-07-2022 Adult depression screening assessment Niurka Stockton RN Start: 01-31-2022 Lipid 1996 panel - S lianne or Plasma Kesha Apple MD Work Phone: Start: 12-27-2021 Mammography Evan Fazi o DO Work Phone: Start: 12-27-2021 Microscopic observat ion [Identifier] in Cervix by Cyto stain Georgiana Justice DO Work Phone: Start: 03-02-2005 Hysterectomy Reidguadalupe mcfarland Abdominal hysterectomy [facility] ClearView™ Audio Biopsy of breast Sandrita RODRIGUEZ L Chondrectomy of semi lunar cartilage of knee [employer] Social MedianClearView™ Audio Core needle biopsy o f breast using ultrasound guidance [facility] ghassanjenna Excision of breast Rusty Delilah mcgowan Excisional biopsy of breast Randy Calle Work Phone: Hysterectomy Randy jaramillo Work Phone: Insertion of implant able venous access port Sandrita RODRIGUEZWilliam Lipoma of back (disorder) Edie liliana Bauer Repair of anterior cruciate ligament of knee joint Mourhasharad Trabmaria esther Tonsillectomy Mourhaf Trabou lssi Transurethral cystoscopy Haydee rhClarke NEGATED: Highlighted row has not occurred! Total colonoscopy Randy Calle Work Phone: Plan of Treatment Date Care Activity Detail Author Start: 05-31-2028 Screening for malignant neoplasm of cervix [facility] Start: 09-02-2027 Diabetes Screening Diabetes Screening [facility] Start: 07-08-2027 DTaP,Tdap and Td Vaccines (2 - Td or Tdap) DTaP,Tdap and Td Vaccines (2 - Td or Tdap) [facility] Start: 07-08-2027 Urine microalbumin profile DTaP,Tdap,Td Vaccine (2 - Td or Tdap) [facility] Start: 06-16-2027 Diabetes Screening Diabetes Screening [facility] Start: 01-31-2027 Lipid panel Lipid Screening [facility] Start: 12-27-2026 Screening for malignant neoplasm of cervix [facility] Start: 10-26-2025 Tobacco Screening [facility] Start: 10-12-2025 Adult BMI Screening [facility] Start: 10-12-2025 Tobacco Screening [facility]ening [facility] Start: 10-05-2025 Tobacco Screening Tobacco Screening [facility] [...] Office Visit [facility] [address] [place] [address] Evan Thompson, DO [address] [place] [address] [facility] Start: 06-08-2025 Tobacco Screening [...] 12-01-2024 Follow-up encounter 12/01/2024 2:00 PM EDT [facility] [address] [place] [address] Josue Mccain DO, PhD [address] [place] [address] Established patient Visit with Dr. Mccain for MRI review and follow up [facility] [place] Comment on above: Established patient Visit with Dr. Timothy kemp for MRI review and follow up Start: 12-01-2024 Tobacco Screening [facility]ening [facility] Start: 11-29-2024 End: 11-29-2024 Patient encounter procedure 11/29/2024 10:20 AM EDT Appointment [facility] [place] [address] [place] [address] With Perfusion [facility] Radiology MRI Comment on above: With Perfusion Start: 11-27-2024 Adult BMI Screening Adult [facility] Screening [facility] Start: 11-26-2024 Tobacco Screening Tobacco Screening [facility] Start: 11-16-2024 End: 11-16-2024 Patient encounter procedure 11/16/2024 1:30 PM EDT [facility] [address] [place] [address] Mraisela Cuevas, RESTAURANT ASSISTANT MANAGER-[facility] [address] [place] [address] [facility] Start: 11-15-2024 End: 11-15-2024 Patient encounter procedure Radiology MRI Comment on above: MRI With Perfusion New patient Visit [facility] for MRI review and follow up Start: 10-31-2024 COVID-19 Vaccine ( season) COVID-19 Vaccine ( season) [facility] Start: 10-31-2024 Influenza vaccination [facility] Start: 10-27-2024 Adult BMI Screening Adult BMI Screening [facility] Start: 10-27-2024 Tobacco Screening Tobacco Screening [facility] Start: 10-26-2024 End: 10-26-2024 Patient encounter procedure 10/26/2024 1:30 PM EDT Office Visit [facility] [address] [facility] [address] [place] [address] Marisela Cuevas, RESTAURANT ASSISTANT MANAGER-PLATE CONDITIONER [address] [facility] [place] [address] [facility] Start: 10-26-2024 End: 10-26-2024 Telephone encounter 10/26/2024 8:30 AM EDT Telephone Visit [facility] Oncology, A Department of [facility] [address] [facility] [address] [place] [phone] Raymond Sepulveda MD [address] [facility] [place] [address] [facility], A Department [facility] Start: 10-15-2024 Adult BMI Screening Adult BMI Screening [facility] Start: 10-15-2024 Screening for malignant neoplasm of breast [facility] Start: 10-15-2024 Tobacco Screening Tobacco Screening [facility] Start: 10-12-2024 End: 10-12-2024 Admission to same day surgery center 10/12/2024 5:00 PM EDT - 10/12/2024 6:15 PM EDT Surgery [facility] - Surgery [address] [facility] [place] [address] Jhon Gross MD [address], [facility] [address] [place] [address] DEBRIDEMENT BREAST [facility] - Surgery Comment on above: DEBRIDEMENT BREAST Start: 10-12-2024 End: 10-12-2024 DEBRIDEMENT BREAST DEBRIDEMENT BREAST BREAST WOUND LEFT 10/12/2024 5:00 PM EDT [facility] Start: 10-12-2024 Subsequent hospital visit by physician 10/12/2024 5:00 PM EDT Hospital Encounter [facility] - Surgery [address] [place] [address] Jhon Gross MD [address] [facility] [place] [address] [facility] Surgery Start: 2024 End: 2024 Admission to establishment 2024 2:15 PM EDT Support Visit [facility] Pre-Admission Clinic On [address] [address] [facility] On [facility] Start: 10-05-2024 End: 10-05-2024 Patient encounter procedure 10/05/2024 1:30 PM EDT [facility] [address] [place] [address] Marisela Cuevas, [facility] [address] [place] [address] [facility] Start: 09-22-2024 End: 09-22-2024 Patient encounter procedure 09/22/2024 3:15 PM EDT Office Visit [facility] [address] [place] [address] Jhon Gross MD [address] [place] [address] [facility] Start: 09-16-2024 End: 09-16-2024 Patient encounter procedure 09/16/2024 11:20 AM EDT Office Visit Plastic Surgery [address] [place] [address] Geno Pierce RESTAURANT ASSISTANT MANAGER.PLATE CONDITIONER [address] [facility] [place] [address] POST OP Plastic Surgery Comment on above: POST OP Start: 09-16-2024 End: 09-16-2024 ambulatory 09/16/2024 7:30 AM EDT Visit (SP) Office Hematology/Oncology [address] [place] [id number] Alessandra Syed, RESTAURANT ASSISTANT MANAGER.PLATE CONDITIONER [address] [place] [address] HOSP DC Hematology/Oncology Comment on above: HOSP DC Start: 09-08-2024 End: 09-08-2024 Patient encounter procedure 09/08/2024 9:45 AM EDT Office Visit [facility] [address] [place] [address] Shereen Smallwood, DAYTONC [address] [place] [address] [facility] Start: 09-07-2024 End: 09-07-2024 Admission to same day surgery center 09/07/2024 4:30 PM EDT - 09/07/2024 6:00 PM EDT Surgery Anesthesia [address] [address] Josue Mccain DO, PhD [address] [facility] [address] [address] STEREOTACTIC RADIOSURGERY 1 COMPLEX CRANIAL LESION Anesthesia [...] of brain (HCC) 09/07/2024 4:30 PM EDT ANESTHESIA ONLY Start: 09-07-2024 Subsequent hospital visit by physician 09/07/2024 4:30 PM EDT Hospital Encounter Anesthesia [address] [address] Josue Mccain DO, PhD [address] [facility] [address] [place], [place] [id number] 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] Anesthesia Comment on above: Secondary malignant neoplasm of brain (H CC) [C79.31] Start: 09-07-2024 Subsequent hospital visit by physician 09/07/2024 8:20 AM EDT Hospital Encounter Radiology [address] [place] [address] 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] Radiology Comment on above: Secondary malignant neoplasm of brain (H CC) [C79.31] Start: 09-07-2024 End: 09-07-2024 Patient encounter procedure Radiation Oncology Comment on above: GS/ESM SIM MRI CT dotd-esm out GS/ESM SIM@ MRI@ CT mask Cpt 22034 GS/ESM dotd-esm out Start: 09-03-2024 Adult BMI Screening Adult BMI Screening [facility] Start: 08-29-2024 End: 08-29-2024 Patient encounter procedure 08/29/2024 9:30 AM EDT Office Visit [facility] [address] [facility] [address] [place] [address] Shereen Smallwood PA-C [address], [address] [place] [address] [facility] Start: 08-19-2024 Adult BMI Screening Adult BMI Screening [facility] Start: 08-19-2024 Tobacco Screening Tobacco Screening [facility] Start: 08-19-2024 End: 08-19-2024 Patient encounter procedure 08/19/2024 10:00 AM EDT Office Visit [facility] [address] [place] [address] Shereen Smallwood PA-C [address], [address] [place] [address] [facility] Start: 08-12-2024 End: 08-12-2024 Admission to same day surgery center 08/12/2024 8:00 AM EDT - 08/12/2024 9:30 AM EDT Surgery [facility] Surgery [address] [place] [address] Jhon Gross MD [address], [facility] [address] [place] [phone] DEBRIDEMENT BREAST- AXILLA [facility] Comment on above: DEBRIDEMENT BREAST- AXILLA Start: 08-12-2024 End: 08-12-2024 Anesthesia consultation 08/12/2024 8:00 AM EDT Anesthesia Event [facility] Surgery [address] [place] [address] Rusty Gipson SRNA [facility] Surgery Start: 08-12-2024 End: 08-12-2024 DEBRIDEMENT BREAST DEBRIDEMENT BREAST LEFT AXILLA WOUND 08/12/2024 8:00 AM EDT [facility] Start: 08-12-2024 Subsequent hospital visit by physician 08/12/2024 8:00 AM EDT Hospital Encounter [facility] Surgery [address] [place] [address] Jhon Gross MD [address], [facility] [address] [place] [address] [facility] Start: 08-10-2024 End: 08-10-2024 Patient encounter procedure 08/10/2024 3:30 PM EDT Office Visit [facility] - Family Medicine [address] [place] [address] Dhruv White [address] [place] [address] [facility] Start: 08-10-2024 End: 08-10-2024 [facility] 08/10/2024 10:00 AM EDT [facility] On [address] [address] [facility] On [facility] Start: 08-08-2024 End: 08-08-2024 Patient encounter procedure 08/08/2024 9:00 AM EDT Office Visit [facility] [address] [facility] [address] [place] [address] Shereen Smallwood PA-C [address], [facility] [address] [place] [address] [facility] Start: 07-29-2024 Adult BMI Screening Adult BMI Screening [facility] Start: 07-29-2024 Tobacco Screening [facility] Start: 07-27-2024 End: 07-27-2024 Admission to same day surgery center 07/27/2024 2:45 PM EDT - 07/27/2024 4:15 PM EDT Surgery [facility] - Surgery [address] [place] [address] Jhon Gross MD [address], [facility] [address] [place] [address] DEBRIDEMENT BREAST [facility] Surgery Comment on above: DEBRIDEMENT BREAST Start: 07-27-2024 End: 07-27-2024 DEBRIDEMENT BREAST [facility] Start: 07-27-2024 Subsequent hospital visit by physician 07/27/2024 2:45 PM EDT Hospital Encounter [facility] [address] [place] [address] Jhon Gross MD [address], [facility] [address] [place] [address] [facility] Start: 07-27-2024 End: 07-27-2024 Telephone encounter 07/27/2024 8:30 AM EDT Telephone Visit [facility], A Department of [address] [place] [address] Raymond Sepulveda MD [address] [place] [address], [address] [place] [address] [facility], A Department of [facility] Start: 07-21-2024 End: 07-21-2024 Admission to same day surgery center 07/21/2024 12:30 PM EDT - 07/21/2024 2:00 PM EDT Surgery [facility] [address] [place] [address] Jhon Gross MD [address], [facility] [address] [place] [address] DEBRIDEMENT BREAST [facility] - Surgery Comment on above: DEBRIDEMENT BREAST Start: 07-21-2024 End: 07-21-2024 DEBRIDEMENT BREAST DEBRIDEMENT BREAST LEFT BREAST WOUND 07/21/2024 12:30 PM EDT [facility] Start: 07-21-2024 Subsequent hospital visit by physician 07/21/2024 12:30 PM EDT Hospital Encounter [facility] [address] [place] [address] Jhon Gross MD [address], [address] [facility] [place] [address] [facility] Start: 07-20-2024 End: 07-20-2024 Patient encounter procedure 07/20/2024 10:30 AM EDT Office Visit [facility] [address] [place] [address] Marisela Cuevas, RESTAURANT ASSISTANT [facility] [address], [address] [facility] [place] [address] [facility] Start: 07-19-2024 End: 07-19-2024 Admission to same day surgery center 07/19/2024 4:15 PM EDT - 07/19/2024 5:45 PM EDT Surgery [facility] [address] [place] [address] Jhon Gross MD [address], [address] [place] [address] DEBRIDEMENT BREAST [facility] Surgery Comment on above: DEBRIDEMENT BREAST Start: 07-19-2024 End: 07-19-2024 DEBRIDEMENT BREAST DEBRIDEMENT BREAST LEFT BREAST WOUND 07/19/2024 4:15 PM EDT [facility] Start: 07-19-2024 Subsequent hospital visit by physician 07/19/2024 4:15 PM EDT Hospital Encounter [facility] - Surgery [address] [place] [address] Jhon Gross MD [address], [address] [place] [address] [facility] - Surgery Start: 07-19-2024 End: 07-19-2024 Patient encounter procedure 07/19/2024 8:00 AM EDT Office Visit Infectious Disease [address] [place] [address] Krystin Barragan MD [address] [place] [address] 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 Start: 07-15-2024 End: 07-15-2024 Admission to establishment 07/15/2024 9:00 AM EDT Support Visit [facility] On [address] [address] [facility] On [facility] Start: 07-14-2024 End: 07-14-2024 Patient encounter procedure 07/14/2024 8:40 AM EDT [facility] [address] [place] [address] Richie Hanna, RESTAURANT ASSISTANT MANAGER-PLATE CONDITIONER [address] [place] [address] [facility] Start: 07-12-2024 End: 07-12-2024 ambulatory 07/12/2024 2:00 PM EDT Visit (SP) Office Hematology/Oncology [address] [place] [address] [place] [address] [place] [address] breast ca Hematology/Oncology Comment on above: breast ca Start: 07-11-2024 End: 07-11-2024 Patient encounter procedure [facility] Start: 07-06-2024 End: 07-06-2024 Patient encounter procedure [facility] Start: 06-29-2024 End: 06-29-2024 Patient encounter procedure 06/29/2024 2:00 PM EDT Office Visit [facility] [address] [facility] [address] [place] [address] Marisela Cuevas, RESTAURANT ASSISTANT MANAGER-PLATE CONDITIONER [address], [facility] [address] [place] [address] [facility] Start: 06-29-2024 End: 06-29-2024 Telemedicine consultation with patient 06/29/2024 8:30 AM EDT Telemedicine [facility] Oncology, A Department of [place] [address] [facility] [address] [place] [address] [place] [address] [place] [address], [address] [place] [address] [facility], A Department of [facility] Start: 06-14-2024 End: 06-14-2024 Patient encounter procedure 06/14/2024 1:30 PM EDT Office Visit [facility] [address] [facility] [address] [place] [address] Marisela Cuevas, RESTAURANT ASSISTANT MANAGER-PLATE CONDITIONER [address], [address] [place] [address] [facility] Start: 06-13-2024 End: 06-13-2024 INCISION DRAINAGE CHEST INCISION DRAINAGE CHEST L Chest wall wound 06/13/2024 5:19 PM EDT [facility] Start: 06-08-2024 End: 06-08-2024 Patient encounter procedure [facility] - Medical Oncology Start: 06-08-2024 End: 06-08-2024 Telephone encounter 06/08/2024 8:30 AM EDT Telephone Visit [facility], A Department of [address] [place] [address] [place] [address] [place] [address], [address] [place] [address] [facility], A Department of [facility] Start: 06-06-2024 Screening for malignant neoplasm of colon [facility] Start: 06-01-2024 End: 06-01-2025 DXA Skeletal system Views for bone density DEXA bone density Imaging Routine Postmenopausal state Expected: 06/01/2024 (Approximate), Expires: 06/01/2025 [facility] Work Phone: Comment on above: Expected: 06/01/2024 (Approximate), Expi res: 06/01/2025 Start: 06-01-2024 End: 06-01-2024 Patient encounter procedure [facility] Start: 05-26-2024 End: 05-26-2024 Admission to same day surgery center 05/26/2024 10:15 AM EDT - 05/26/2024 12:45 PM EDT Surgery [facility] - Surgery [address] [place] [address] Raymond Sepulveda MD [address] [facility], [address] [place] [address] DAVINCI EXCISION LYMPH NODE ABDOMINAL REGION(EXCISION PELVIC MASS) [97602 (CPT )] [facility] - Surgery Comment on above: DAVINCI EXCISION LYMPH NODE ABDOMINAL RE GION(EXCISION PELVIC MASS) [92051 (CPT )] Start: 05-26-2024 Subsequent hospital visit by physician 05/26/2024 10:15 AM EDT Hospital Encounter [facility] Surgery [address] [place] [address] Raymond Sepulveda MD [address] [facility], [address] [place] [address] [facility] Surgery Start: 05-26-2024 End: 05-26-2024 Unlisted laparoscopic px abd pertoneum & omentum DAVINCI EXCISION LYMPH NODE ABDOMINAL REGION PELVIC MASS LEFT SIDED 05/26/2024 10:15 AM EDT [facility] Start: 05-12-2024 End: 05-12-2024 Admission to establishment 05/12/2024 2:45 PM EDT Support Visit [facility] On [address] [address] [facility] On [facility] Start: 05-12-2024 End: 05-12-2024 Evaluation and management of inpatient 05/12/2024 2:45 PM EDT Support Visit [facility] On [address] [address] [facility] On [facility] Start: 05-05-2024 Adult BMI Screening Adult BMI Screening [facility] tem Start: 05-02-2024 End: 05-02-2024 Rmvl henry ctr vad w/subq port/winder helper ctr/prph insj [facility] Start: 04-28-2024 End: 04-28-2024 Patient encounter procedure 04/28/2024 3:15 PM EST Office Visit [facility] [address] [place] [address] Jhon Gross MD [address], [address] [place] [address] [facility] Start: 04-28-2024 Tobacco Screening Tobacco Screening [facility] tem Start: 04-21-2024 End: 04-21-2024 Patient encounter procedure 04/21/2024 11:30 AM EST Office Visit [facility] [address] [place] [address] Evan Thompson DO [address] [place] [address] [facility] Start: 04-20-2024 End: 04-20-2024 Patient encounter procedure 04/20/2024 1:00 PM EST Office Visit [facility] [address] [place] [address] Marisela Cuevas, RESTAURANT ASSISTANT MANAGER-PLATE CONDITIONER [address], [address] [place] [address] [facility] Start: 04-15-2024 End: 04-15-2024 Patient encounter procedure 04/15/2024 11:30 AM EST Office Visit [facility] [address] [place] [address] Marisela Cuevas, RESTAURANT ASSISTANT MANAGER-PLATE CONDITIONER [address], [address] [place] [address] [facility] Start: 03-21-2024 End: 03-21-2024 Admission to same day surgery center 03/21/2024 3:30 PM EST - 03/21/2024 5:15 PM EST Surgery [facility] - Surgery [address] [place] [address] Jhon Gross MD [address], [address] [place] [address] EXCISION SOFT TISSUE BREAST - EXC REDUNDANT CHEST WALL TISSUE [32822 (CPT )] [facility] Surgery Comment on above: EXCISION SOFT TISSUE BREAST - EXC REDUND ANT CHEST WALL TISSUE [00819 (CPT )] Start: 03-21-2024 End: 03-21-2024 Excision excessive skin & subq tissue other area EXCISION SOFT TISSUE BREAST LT CHEST WOUND 03/21/2024 3:30 PM EST [facility] Start: 03-21-2024 End: 03-21-2024 Removal tiss solar power installer w/o insertion prosthesis REMOVAL SUPERVISOR CURED MEATS TISSUE BREAST LT CHEST WOUND 03/21/2024 3:30 PM EST [facility] Start: 03-21-2024 Subsequent hospital visit by physician 03/21/2024 3:30 PM EST Hospital Encounter [facility] [address] [place] [address] Jhon Gross MD [address], [facility] [address] [facility] [place] [address] [facility] Surgery Start: 03-15-2024 End: 03-15-2024 Patient encounter procedure [facility] Start: 03-04-2024 End: 03-04-2024 Patient encounter procedure 03/04/2024 10:30 AM EST Office Visit [facility] [address] [facility] [place] [address] Shereen Smallwood PA-C [address], [address] [facility] [place] [address] [facility] Start: 03-03-2024 End: 03-03-2024 Patient encounter procedure 03/03/2024 12:30 PM EST Office Visit [facility] [address] [facility] [place] [address] Jhon Gross MD [address], [address] [place] [address] [facility] Start: 02-26-2024 End: 02-26-2024 Admission to same day surgery center 02/26/2024 11:30 AM EST - 02/26/2024 1:00 PM EST Surgery [facility] [address] [place] [address] Jhon Gross MD [address], [facility] [address] [place] [address] INCISION DRAINAGE BREAST (WASHOUT) [facility] Comment on above: INCISION DRAINAGE BREAST (WASHOUT) Start: 02-26-2024 End: 02-26-2024 CLOSURE WOUND MIDSECTION CLOSURE WOUND MIDSECTION LEFT BREAST WOUND 02/26/2024 11:30 AM [facility] Start: 02-26-2024 End: 02-26-2024 INCISION DRAINAGE BREAST INCISION DRAINAGE BREAST LEFT BREAST WOUND 02/26/2024 11:30 AM EST [facility] Start: 02-26-2024 Subsequent hospital visit by physician 02/26/2024 11:30 AM EST Hospital Encounter [facility] [address] [place] [address] Jhon Gross MD [address], [facility] [address] [place] [address] [facility] Start: 02-15-2024 End: 02-15-2024 Patient encounter procedure [facility] Comment on above: Arrived Start: 01-25-2024 End: 01-25-2024 Patient encounter procedure 01/25/2024 10:00 AM EST Office Visit [facility] [address] [place] [address] Yves Coffey MD [address] [place] [address] Arrived [facility] Comment on above: Arrived Start: 12-21-2023 End: 12-21-2023 Patient encounter procedure 12/21/2023 1:30 PM EDT Office Visit [facility] [address] [place] [address] Marisela Cuevas, RESTAURANT ASSISTANT MANAGER-PLATE CONDITIONER [address], [address] [facility] [place] [address] [facility] Start: 12-15-2023 End: 12-15-2023 Patient encounter procedure 12/15/2023 10:30 AM EDT Office Visit [facility] [address] [place] [address] Marisela Cuevas, RESTAURANT ASSISTANT MANAGER-PLATE CONDITIONER [address], [address] [facility] [place] [address] [facility] Start: 12-14-2023 End: 12-14-2023 Patient encounter procedure 12/14/2023 2:00 PM EDT Office Visit [facility] [address] [place] [address] Suzette Mason PA [address], [address] [place] [phone] [facility] Start: 12-08-2023 End: 12-08-2023 Patient encounter procedure [facility] Start: 12-04-2023 End: 12-04-2023 Patient encounter procedure 12/04/2023 11:00 AM EDT Office Visit [facility] [address] [place] [address] Marisela Cuevas, RESTAURANT ASSISTANT MANAGER-PLATE CONDITIONER [address], [address] [place] [address] [facility] Start: 12-01-2023 Patient referral [facility] Work Phone: Start: 11-26-2023 End: 11-26-2023 Patient encounter procedure 11/26/2023 11:45 AM EDT Office Visit [facility] [address] [place] [address] Jhon Gross MD [address], [address] [place] [address] [facility] Start: 11-25-2023 End: 11-25-2023 Patient encounter procedure 11/25/2023 3:00 PM EDT Office Visit [facility] [address] [place] [address] Marisela Cuevas, RESTAURANT ASSISTANT MANAGER-PLATE CONDITIONER [address], [address] [place] [address] [facility] Start: 11-18-2023 End: 11-18-2023 Patient encounter procedure 11/18/2023 11:30 AM EDT Office Visit [facility] [address] [place] [address] Marisela Cuevas, RESTAURANT ASSISTANT MANAGER-PLATE CONDITIONER [address], [address] [place] [address] [facility] Start: 11-11-2023 End: 11-11-2023 Patient encounter procedure 11/11/2023 1:30 PM EDT Office Visit [facility] [address] [place] [address] Marisela Cuevas, RESTAURANT ASSISTANT MANAGER-PLATE CONDITIONER [address], [address] [facility] [place] [address] [facility] Start: 11-04-2023 End: 11-04-2023 Patient encounter procedure 11/04/2023 11:00 AM EDT Office Visit [facility] [address] [place] [address] Marisela Cuevas, RESTAURANT ASSISTANT MANAGER-PLATE CONDITIONER [address], [address] [place] [address] [facility] Start: 11-01-2023 Covid-19 Vaccine ( season) Covid-19 Vaccine ( season) [facility] Start: 11-01-2023 Covid-19 Vaccine ( season) Covid-19 Vaccine ( season) [facility] Start: 11-01-2023 COVID-19 Vaccine ( season) COVID-19 Vaccine ( season) [facility] Start: 11-01-2023 COVID-19 Vaccine ( season) COVID-19 Vaccine ( season) [facility] Start: 11-01-2023 Influenza vaccination [facility] Start: 10-28-2023 End: 10-28-2023 Adjnt tis trnsfr/reargmt any area 30.1-60 sq cm [facility] Start: 10-28-2023 End: 10-28-2023 Admission to same day surgery center 10/28/2023 7:30 AM EDT - 10/28/2023 11:30 AM EDT Surgery [facility] [address] [place] [address] Christy He MD [address] [facility], [facility] [address] [place] [address] MASTECTOMY BREAST SIMPLE SKIN SPARING [facility] Comment on above: MASTECTOMY BREAST SIMPLE SKIN SPARING Start: 10-28-2023 End: 10-28-2023 Brst rcnstj immt/dlyd w/tiss solar power installer sbsq xpnsj EXCHANGE SUPERVISOR CURED MEATS TISSUE BREAST INVASIVE CARCINOMA RIGHT DESIRE FOR CONTRALATERAL RISK REDUCTION 10/28/2023 7:30 AM EDT [facility] Start: 10-28-2023 End: 10-28-2023 EXCISION LYMPH NODE AXILLARY EXCISION LYMPH NODE AXILLARY INVASIVE CARCINOMA RIGHT DESIRE FOR CONTRALATERAL RISK REDUCTION 10/28/2023 7:30 AM EDT [facility] Start: 10-28-2023 End: 10-28-2023 MAGNETIC SEED LOCALIZATION EXCISION/BIOPSY MASS BREAST MAGNETIC SEED LOCALIZATION EXCISION/BIOPSY MASS BREAST INVASIVE CARCINOMA RIGHT DESIRE FOR CONTRALATERAL RISK REDUCTION 10/28/2023 7:30 AM EDT [facility] Start: 10-28-2023 End: 10-28-2023 MASTECTOMY BREAST SIMPLE MASTECTOMY BREAST SIMPLE INVASIVE CARCINOMA RIGHT DESIRE FOR CONTRALATERAL RISK REDUCTION 10/28/2023 7:30 AM EDT [facility] Start: 10-28-2023 End: 10-28-2023 Mastectomy simple complete MASTECTOMY BREAST SIMPLE RISK REDUCING INVASIVE CARCINOMA RIGHT DESIRE FOR CONTRALATERAL RISK REDUCTION 10/28/2023 7:30 AM EDT [facility] Start: 10-28-2023 Subsequent hospital visit by physician 10/28/2023 7:30 AM EDT Hospital Encounter [facility] [address] [place] [address] [place] [address] [place] [address] [address] [place] [address] [facility] Division of [facility] Surgery Start: 10-16-2023 Subsequent hospital visit by physician 10/16/2023 2:00 PM EDT Hospital Encounter [facility] [address] [place] [address] [facility] Start: 10-16-2023 End: 10-16-2023 Patient encounter procedure 10/16/2023 11:00 AM EDT Procedure visit [facility] ro [facility]-Admission [facility] On [facility] [address] [place] [id number] [facility] On [facility] Start: 09-04-2023 Subsequent hospital visit by physician 09/04/2023 12:45 PM EDT Hospital Encounter [facility] [address] [place] [address] [facility]ush[facility] Enriqueznt[facility] Start: 08-30-2023 End: 07-29-2024 MR Breast - bilateral WO and W contrast IV MR bilateral breast with and without contrast with CAD Imaging Routine Malignant neoplasm of lower-inner quadrant of right breast of female, estrogen receptor positive ([facility]) Expected: 08/30/2023 (Approximate), Expires: 07/29/2024 Khushboo Work Phone: Comment on above: Expected: 08/30/2023 (Approximate), Expi res: 07/29/2024 Start: 08-20-2023 End: 08-20-2023 Patient encounter procedure 08/20/2023 10:00 AM EDT Office Visit [facility] [address] [facility] [place] [address] Jhon Gross MD [address], [address] [place] [address] [facility] Start: 07-30-2023 End: 07-30-2023 Patient encounter procedure 07/30/2023 3:00 PM EDT Office Visit [facility] [address] [place] [address] [address] [place] [phone] Christy He MD [address] [facility] [address] [place] [address] [facility] Start: 06-01-2023 End: 06-01-2023 Patient encounter procedure 06/01/2023 1:30 PM EDT Office Visit [facility] [address] [place] [address] Evan Thompson, DO [address] [place] [address] [facility] Start: 04-08-2023 FUV, Provider: Shanon Tyler, Status: Pen, Time: 2:50 PM FUV, Provider: Shanon Tyler, Status: Pen, Time: 2:50 PM [facility] 250 DO Work Phone: Start: 03-07-2023 [facility]ening [facility] Start: 12-27-2022 Screening for malignant neoplasm of breast Mammogram [facility] Start: 10-31-2022 COVID-19 Vaccine ( season) COVID-19 Vaccine ( season) [facility] Start: 10-31-2022 Influenza vaccination [facility] Start: 09-29-2022 FUV, Provider: Brittani Avalos, Status: Pen, Time: 2:30 PM FUV, Provider: Brittani Avalos, Status: Pen, Time: 2:30 PM [facility] Work Phone: Start: 09-18-2022 FUV, Provider: Shanon Tyler, Status: Pen, Time: 9:10 AM FUV, Provider: Shanon Tyler, Status: Pen, Time: 9:10 AM [facility] Work Phone: Start: 09-12-2022 WILMAN, Provider: ASHLEIGH MURGUIA AUTOMATIC LATHE OPERATOR 1,[id number], Status: Pen, Time: 9:00 AM WILMAN, Provider: ASHLEIGH MURGUIA AUTOMATIC LATHE OPERATOR 1,[id number], Status: Pen, Time: 9:00 AM [facility] 250 DO Work Phone: Start: 08-22-2022 WILMAN, Provider: ASHLEIGH MURGUIA AUTOMATIC LATHE OPERATOR 1,[id number], Status: Pen, Time: 9:00 AM WILMAN, Provider: ASHLEIGH MURGUIA AUTOMATIC LATHE OPERATOR 1,[id number], Status: Pen, Time: 9:00 AM [facility] 250 DO Work Phone: Start: 01-03-2021 Covid-19 Vaccine (3 - Mixed Product risk series) Covid-19 Vaccine (3 - Mixed Product risk series) [facility] Start: 2020 Pneumococcal Vaccine: 50+ (1 of 1 - PCV) Pneumococcal Vaccine: 50+ (1 of 1 - PCV) [facility] Start: 2020 Shingrix Vaccine (1 of 2) Shingrix Vaccine (1 of 2) [facility] Start: 10-11-2015 Screening for malignant neoplasm of colon [facility] Start: 2000 Screening for malignant neoplasm of cervix [facility] Start: 10-11-1991 Screening for malignant neoplasm of cervix [facility] Start: 1989 Administration of varicella zoster vaccine Zoster (Shingles) Vaccine (1 of 2) [facility] Start: 1989 Hepatitis B Vaccine (1 of 3 - 19+ 3-dose series) Hepatitis B Vaccine (1 of 3 - 19+ 3-dose series) [facility] Start: 1989 Pneumococcal Vaccine: 50+ (1 of 2 - PCV) Pneumococcal Vaccine: 50+ (1 of 2 - PCV) [facility] Start: 1989 Shingrix Vaccine (1 of 2) Shingrix Vaccine (1 of 2) [facility] Start: 1988 Adult BMI Follow Up Plan Adult BMI Follow Up Plan [facility] Start: 1988 Annual PCP Team Chronic Disease Visit Annual PCP Team Chronic Disease Visit [facility] Start: 1988 Anxiety Screening Anxiety Screening [facility] Start: 1988 Depression Screening Depression Screening [facility] Start: 1988 Hepatitis C screening Hepatitis C Screening [facility] Start: 1988 HIV screening HIV Screening [facility] Start: 1981 Screening for malignant neoplasm of cervix Cervical Cancer Screening [facility] Start: 1970 Screening for malignant neoplasm of colon [facility] End: 11-24-2024 Aspirate culture includes gram stain Aspirate culture includes gram stain Microbiology Routine Encounter for postoperative care Acquired absence of breast, bilateral 1 Occurrences starting 11/25/2023 until 11/24/2024 [employer] Work Phone: Comment on above: 1 Occurrences starting 11/25/2023 until 11/24/2024 Bacteria identified in Aspirate by Aerobe culture Aspirate culture includes gram stain Microbiology Routine Encounter for postoperative care Acquired absence of breast, bilateral 11/25/2023 6:05 PM EDT Rip van Wafels Bacteria identified in Blood by Aerobe culture [employer] Work Phone: End: 12-08-2024 CBC W Auto Differential panel - Blood CBC auto differential Lab Routine Infection of deep incisional surgical site after procedure, initial encounter Infection of deep incisional surgical site after procedure, subsequent encounter weekly for 4 Occurrences starting 12/09/2023 until 12/08/2024 [employer] Work Phone: Comment on above: weekly for 4 Occurrences starting 2023 until 12/08/2024 End: 12-08-2024 Comprehensive metabolic 2000 panel - Serum or Plasma Comprehensive metabolic panel Lab Routine Infection of deep incisional surgical site after procedure, initial encounter Infection of deep incisional surgical site after procedure, subsequent encounter weekly for 4 Occurrences starting 12/09/2023 until 12/08/2024 Rip van Wafels Comment on above: weekly for 4 Occurrences starting 2023 until 12/08/2024 Computed tomography for radiotherapy planning [facility] CT with contrast for radiotherapy planning [facility] Patient referral [facility] Work Phone: THIN PREP TIS PAP AN D HR HPV DNA THIN PREP TIS PAP AND HR HPV DNA Pathology and Cytology Routine Well woman exam with routine gynecological exam Ordered: 06/01/2024 [facility] Comment on above: Ordered: 06/01/2024 Immunizations Immunization Date Immunization Notes Care Provider Brandi box 12-06-2020 Covid-19, Mrna, Lnp-s, Pf, 30 Mcg/0.3 Ml Dose, Winston-sucrose Niurka Stockton RN [facility] 12-06-2020 SARS-CoV-2 (COVID-19 ) mRNA BNT-162b2 vax Reid Bauer [facility] Comment on above: Result Comment: 2022: [id number] 12-06-2020 SARS-COV-2 (COVID-19 ) Vaccine, Unspecified Niurka Stockton RN [facility] 11-15-2020 SARS-CoV-2 (COVID-19 ) mRNA BNT-162b2 vax Reid Bauer [facility] Comment on above: Result Comment: 2022: [id number] 11-20-2019 influenza virus vaccine, unspecified formulation Reid Howardey [facility] [place] 11-14-2019 influenza virus vaccine, unspecified formulation Reid Bauer [facility] 11-14-2019 influenza, seasonal, injectable Randy Rafi Calle Work Phone: [facility] [employer] DO Work Phone: 12-13-2018 influenza virus vaccine, unspecified formulation Reid Howardey [facility] 12-13-2018 influenza, seasonal, injectable Randy G Furlong Work Phone: [facility] DO Work Phone: 12-10-2017 influenza virus vaccine, unspecified formulation Reid Bauer [facility] 12-10-2017 influenza, injectable, quadrivalent, contains preservative Randy G Furlong Work Phone: [facility] [employer] DO Work Phone: 07-07-2017 tetanus toxoid, reduced diphtheria toxoid, and acellular pertussis vaccine, adsorbed Reid Coatspsey [facility] 01-19-2017 influenza virus vaccine, unspecified formulation Reid Coatspsey [facility] 01-19-2017 influenza, injectable, quadrivalent, contains preservative Randy G Furlong Work Phone: [facility] 250 DO Work Phone: 01-07-2016 influenza virus vaccine, unspecified formulation Reid Coatspsey [facility] 01-07-2016 influenza, injectable, quadrivalent, contains preservative Randy G Furlong Work Phone: [facility] [employer] DO Work Phone: 12-01-2015 influenza nasal, unspecified formulation [address] 12-01-2015 influenza virus vaccine, unspecified formulation Randy G Furlong Work Phone: [facility] 250 DO Work Phone: 12-01-2015 influenza, unspecified formulation Reid Coatspsey [facility] 12-27-2014 influenza virus vaccine, unspecified formulation Reid Coatspsey [facility] 12-27-2014 influenza, injectable, quadrivalent, contains preservative Randy G Furlong Work Phone: [facility] 250 DO Work Phone: 12-06-2014 influenza, seasonal, injectable Niurka Stockton RN [facility] 01-05-2014 influenza virus vaccine, unspecified formulation Reid Bauer [facility] 01-05-2014 influenza, injectable, quadrivalent, contains preservative Randy Normanlong Work Phone: [facility] [employer] DO Work Phone: 12-29-2012 influenza virus vaccine, unspecified formulation Reid Bauer [facility] 12-29-2012 influenza, seasonal, injectable Randy Normanlong Work Phone: [facility] [employer] DO Work Phone: 01-17-2009 novel [id number], preservative-free, injectable Randy Normanlong Work Phone: [facility] [employer] DO Work Phone: NEGATED: Highlighted row has not occurred!04-10-2023 influenza virus vaccine, unspecified formulation Sandrita WILLETT [facility] [place] Payers Date Payer Category Payer Self-pay [id number] 05-01-2023 Medicaid HMO [facility] MEDICAID [id number] 05-01-2023 Private Health Insurance [id number] 03-02-2023 Medicaid [id number] 03-02-2023 Private Health Insurance [id number] 03-02-2016 Unknown [id number] 1970 Unknown [id number] 2.16.840.1.450927.3.579. 2.71 1970 Unknown [id number] 2.16.840.1.162794.3.579. 2. 1970 Unknown [id number] 2.16.840.1.485399.3.579. 2.71 1970 Unknown [id number] 2.16.840.1.953092.3.579. 2. 1970 Unknown [id number] 2.16.840.1.974161.3.579. 2. 1970 Unknown [id number] 2.16.840.1.634649.3.579. 2. 1970 Unknown [id number] 2.16.840.1.644941.3.579. 2.71 1970 Unknown [id number] 2.16.840.1.896475.3.579. 2.59 1970 Unknown [id number] 2.16.840.1.257325.3.579. 2.59 1970 Unknown [id number] 2.16.840.1.906002.3.579. 2.356 1970 Unknown [id number] 2.16.840.1.566207.3.579. 2.356 1970 Unknown [id number] 2.16.840.1.252046.3.579. 2.356 1970 Unknown [id number] 2.16.840.1.058035.3.579. 2.356 1970 Unknown [id number] 2.16.840.1.288060.3.579. 2.1068 1970 Unknown [id number] 2.16.840.1.962293.3.579. 2.1244 1970 Unknown [id number] 2.16.840.1.262869.3.579. 2.727 1970 Unknown [id number] 2.16.840.1.896719.3.579. 2.727 1970 Unknown [id number] 2.16.840.1.343044.3.579. 2.727 1970 Unknown [id number] 2.16.840.1.212082.3.579. 2.727 1970 Unknown [id number] 2.16.840.1.787104.3.579. 2.727 1970 Unknown [id number] 2.16.840.1.361293.3.579. 2.727 1970 Unknown [id number] 2.16.840.1.060736.3.579. 2.727 1970 Unknown [id number] 2.16.840.1.865324.3.579. 2.125 1970 Unknown [id number] 2.16.840.1.006219.3.579. 2.1258 1970 Unknown [id number] 2.16.840.1.596328.3.579. 2.1259 1970 Unknown [id number] 2.16.840.1.718611.3.579. 2.1258 1970 Unknown [id number] 2.16.840.1.476459.3.579. 2.9 1970 Unknown [id number] 2.16.840.1.789746.3.579. 2.1258 1970 Unknown [id number] 2.16.840.1.383372.3.579. 2.1259 1970 Unknown [id number] 2.16.840.1.733450.3.579. 2.1258 1970 Unknown [id number] 2.16.840.1.536185.3.579. 2.9 1970 Unknown [id number] 2.16.840.1.523131.3.579. 2.128 1970 Unknown [id number] 2.16.840.1.383335.3.579. 2.128 1970 Unknown [id number] 2.16.840.1.470998.3.579. 2.1285 1970 Unknown [id number] 2.16.840.1.605904.3.579. 2.1285 1970 Unknown [id number] 2.840.1.365818.3.579. 2.1285 1970 Unknown [id number] 2..840.1.205427.3.579. 2.1285 1970 Unknown [id number] 2.16.840.1.085008.3.579. 2.1285 1970 Unknown [id number] 2.16.840.1.231916.3.579. 2.1285 1970 Unknown [id number] 2.16.840.1.393095.3.579. 2.1285 1970 Unknown [id number] 2.16.840.1.725069.3.579. 2.1285 1970 Unknown [id number] 2.16.840.1.893588.3.579. 2.1285 1970 Unknown [id number] 2.16.840.1.383964.3.579. 2.1285 1970 Unknown [id number] 2.16.840.1.232600.3.579. 2.128 1970 Unknown [id number] 2..840.1.468887.3.579. 2.1285 1970 Unknown [id number] 2.16840.1.135047.3.579. 2.1285 1970 Unknown [id number] 2.840.1.074011.3.579. 2.1285 1970 Unknown [id number] 2.840.1.957172.3.579. 2.1285 1970 Unknown [id number] 2.840.1.313650.3.579. 2.1285 1970 Unknown [id number] 2.840.1.069360.3.579. 2.1285 1970 Unknown [id number] 04.17.830.1.517520.3.579. 2.1285 1970 Unknown [id number] .840.1.053826.3.579. 2.1285 1970 Unknown [id number] 04.17.830.1.530659.3.579. 2.1285 1970 Unknown [id number] 840.1.268400.3.579. 2.1285 1970 Unknown [id number] 04.17.830.1.111077.3.579. 2.1285 1970 Unknown [id number] 840.1.005472.3.579. 2.1285 1970 Unknown [id number] 840.1.006086.3.579. 2.1285 1970 Unknown [id number] .840.1.972623.3.579. 2.1285 1970 Unknown [id number] 840.1.864594.3.579. 2.1285 1970 Unknown [id number] 2.16.840.1.948513.3.579. 2.1285 1970 Unknown [id number] 2.16.840.1.065685.3.579. 2.1285 1970 Unknown [id number] 2.16.840.1.889526.3.579. 2.1285 1970 Unknown [id number] 2.16.840.1.119829.3.579. 2.1285 1970 Unknown [id number] 2.16.840.1.095022.3.579. 2.1285 1970 Unknown [id number] 2.16.840.1.556509.3.579. 2.1285 1970 Unknown [id number] 2..840.1.509134.3.579. 2.1285 1970 Unknown [id number] 2.840.1.022379.3.579. 2.1285 1970 Unknown [id number] 2..840.1.792563.3.579. 2.1285 1970 Unknown [id number] 2..840.1.061792.3.579. 2.1285 1970 Unknown [id number] 2.16.840.1.245651.3.579. 2.1285 1970 Unknown [id number] 2..840.1.388459.3.579. 2.1285 1970 Unknown [id number] 2..840.1.374386.3.579. 2.1285 1970 Unknown [id number] 2.16.840.1.611836.3.579. 2.1285 1970 Unknown [id number] 2.16.840.1.400993.3.579. 2.1285 1970 Unknown [id number] 2.16.840.1.391699.3.579. 2.1285 1970 Unknown [id number] 2.16.840.1.223890.3.579. 2.128 1970 Unknown [id number] 2.16.840.1.900284.3.579. 2.1285 1970 Unknown [id number] 2.16.840.1.568395.3.579. 2.1285 1970 Unknown [id number] 2.16.840.1.919195.3.579. 2.1285 1970 Unknown [id number] 2.16.840.1.621517.3.579. 2.1285 1970 Unknown [id number] 2.16.840.1.030887.3.579. 2.1285 1970 Unknown [id number] 2.16.840.1.076744.3.579. 2.1285 1970 Unknown [id number] 2.16.840.1.041861.3.579. 2.1285 1970 Unknown [id number] 2.16.840.1.129456.3.579. 2.1285 1970 Unknown [id number] 2.16.840.1.894064.3.579. 2.1285 1970 Unknown [id number] 2.16.840.1.781519.3.579. 2.1285 1970 Unknown [id number] 2.16.840.1.912259.3.579. 2.128 1970 Unknown [id number] 2.16.840.1.632611.3.579. 2.1285 1970 Unknown [id number] 2.16.840.1.629171.3.579. 2.1285 1970 Unknown [id number] 2.16.840.1.243784.3.579. 2.1285 1970 Unknown [id number] 2.16.840.1.771659.3.579. 2.128 1970 Unknown [id number] 2.840.1.941256.3.579. 2.1285 1970 Unknown [id number] 2.840.1.575978.3.579. 2.1285 1970 Unknown [id number] 2.840.1.990632.3.579. 2.1285 1970 Unknown [id number] 2.840.1.144234.3.579. 2.1285 1970 Unknown [id number] 2.840.1.188473.3.579. 2.1285 1970 Unknown [id number] 2.840.1.160119.3.579. 2.1285 1970 Unknown [id number] 2.0.1.631635.3.579. 2.1285 1970 Unknown [id number] 2.840.1.297008.3.579. 2.1285 1970 Unknown [id number] 2.0.1.731250.3.579. 2.1285 1970 Unknown [id number] 2.840.1.846019.3.579. 2.12803-02-1959 Private Health Insurance [id number] .1.475055.19 Unknown Unknown [id number] Unknown Insurance No Card [id number] Unknown [id number] 2.840.1.056048.3.579. 2.531 Unknown [id number] 2.840.1.746363.3.579. 2.531 Unknown [id number] 2.840.1.109946.3.579. 2.531 Unknown [id number] 2.840.1.797100.3.579. 2.531 Unknown [id number] 2.16.840.1.373837.3.579. 2.531 Social History Date Type Detail Facility Unknown if ever smoked [facility] Other Start: 02-27-2022 End: 01-04-2023 Sex Assigned At [facility] Start: 07-14-2022 End: 03-18-2024 Tobacco smoking status Never smoked tobacco (finding) [facility] Start: 12-02-2023 Tobacco smoking status Never [facility] Start: 02-27-2022 End: 01-04-2023 Social alcohol use Social alcohol use [facility] Start: 1970 Sex Assigned At Female [facility] Start: 04-02-2023 End: 06-01-2024 Alcohol intake Lifetime non-drinker (finding) [facility] Start: 01-04-2023 Alcohol Comment Caffeine intak e: 1-2 cups per day [facility] Start: 1970 Sex Assigned At Not on file [facility] Start: 01-25-2024 End: 03-18-2024 Tobacco use and exposure Smokeless tobacco non-user [facility] Start: 12-14-2023 End: 08-03-2024 Alcoholic beverage intake Current drinker of alcohol (finding) [facility] Has the Net Zero [employer], or [employer] threatened to shut off services in your home in past 12Mo No [facility] Do you belong to any clubs or organizations such as nondenominational groups, unions, fraternal or athletic groups, or school groups? Yes [facility] Are you now , , , , never or living with a partner? [facility] How often to you hav e a drink containing alcohol? 2-3 time sa week [facility] How many standard drinks containing alcohol do you have on a typical day? 1 or 2 [facility] How often do you hav e 6 or more drinks on 1 occasion? Less than monthly [facility] Do you feel stress - tense, restless, nervous, or anxious, or unable to sleep at night because your mind is troubled all the time - these days [OSQ] To some extent [facility] Start: 02-27-2022 Education 21 [facility] Start: 10-16-2023 Alcohol Comment Socially [facility] Start: 10-05-2014 End: 06-06-2024 Sex Female (finding) [facility] History of tobacco use Passive smoker [facility] Sexual Orientation [facility] Tobacco smoking stat [facility] Tobacco smoking consumption unknown [facility] Work Phone: Start: 07-19-2024 End: 10-26-2024 Alcoholic beverage intake Ex-drinker (finding) [facility] Start: 07-19-2024 Alcohol Comment Occasional wine [facility] (I/We) worried wheth er (my/our) food would run out before (I/we) got money to buy more. Never true [facility] NEGATED: Highlighted rowStart: NINF History of tobacco use Passive smoker [facility] Medical Equipment Procedure Code Equipment Code Equipment Origin al Text Equipment Identifier Dates Assistant Research Scientist Tiss [id number] Brst 480-575cc Txtr Intgr Port Allox2 - [id number] - [id number] Start: 10-28-2023 Assistant Research Scientist Tiss [id number] Brst 480-575cc Txtr Intgr Port [employer]2 - [id number] - [id number] Start: 10-28-2023 Goals Date Patient Goal [...] return home at discharge/follow up [facility] Wound care clinic Personal health goal Personal health goal Personal health goal Functional Status Date Assessment Result Facility 05-22-2024 Functional Status N/A [facility] 05-03-2024 Humiliation, Afraid, Rape, and Kick questionnaire [HARK] [facility] 12-28-2023 Functional Status N/A [facility] 04-10-2023 Functional Status N/A [facility] shukri [facility] 07-14-2022 Functional Status N/A [facility] Care [facility] Clinical Notes 01-18-2021 to 11-01-2024 Telephone Encounter - Shanice Johnson RN - 11/01/2024 9:24 AM EDTTelephone Encounter - Shanice Johnson RN - 11/01/2024 9:24 AM AMEENA Toney - 10/26/2024 1:30 PM EDT Note Date & Type Note Facility 11-01-2024 Miscellaneous Notes Received call from Jared in microbiology. Patient has +AFB tissue culture: 10/12/2024 CULTURE RESULTS NO GROWTH 3 DAYS CULTURE RESULTS NO GROWTH 5 DAYS CULTURE RESULTS Mycobacterium abscessus ! (P) GRAM STAIN 0 White Blood Cells/LPF GRAM STAIN 0 Squamous Epithelial Cells/LPF GRAM STAIN No organisms seen Legend: ! Abnormal (P) Preliminary documented in this encounter [facility] 11-01-2024 Telephone encounter Note Received call from Jared in microbiology. Patient has +AFB tissue culture: 10/12/2024 CULTURE RESULTS NO GROWTH 3 DAYS CULTURE RESULTS NO GROWTH 5 DAYS CULTURE RESULTS Mycobacterium abscessus ! (P) GRAM STAIN 0 White Blood Cells/LPF GRAM STAIN 0 Squamous Epithelial Cells/LPF GRAM STAIN No organisms seen Legend: ! Abnormal (P) Preliminary [facility] 10-26-2024 History of Present illness Narrative [facility] [address] Office Jhon Gross MD, PhD INÉS King PA-C Erin A Schroeder, APRN-CNP Plastic Surgery Progress Note Reason for visit : post-op History of present illness: Ike Flannery is a 54 y.o. female with a history of ight breast cancer status post bilateral skin sparing mastectomies (He) and tissue solar power installer reconstruction in 10/28/2023. Her postoperative course was complicated by an infected seroma of her left breast requiring operative washout and tissue solar power installer removal 11/27/23. Intraoperative cultures demonstrated growth of [...] 134/81 Pulse: 80 Resp: 16 Temp: 36.4 C (97.5 F) Body mass index is 27.55 kg/m . GENERAL: no acute distress, well [...] with wet-to-dry dressing changes to the area. We will continue this until the wounds becomes superficial. [...] this note were generated using voice recognition Waterfall dictation software. Although every effort was made to ensure the accuracy of this automated construction ironworker, some errors in construction ironworker may have occurred. AMEENA Kennedy 10/26/24 1448 documented in this encounter [facility] 10-26-2024 History of Present illness Narrative This nice patient unfortunately was diagnosed with recurrent and progressive breast cancer, she is now transition to 3rd line treatment. Reviewing her PET-CT reveals increase of all of her metastatic lesions including the lesion in the pelvis. We [...] the medical record. documented in this encounter [facility] 10-19-2024 Note Clearing IV amikacin appropriately, trough less than 0.8 [facility] 10-19-2024 Note Reviewed slight incr ease in Cr. 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 Consent signed and reviewed with Avi Tobar, [facility], patient and myself. Updated Consent reviewed and [...] drain. Pembrolizumab stopped. 09/13 Follow up with [facility] again for additional gamma knife, she was found to have brain mets from her breast cancer. Right breast tissue solar power installer was removed for Brain MRI at [facility]. Last culture from 08/12 AFB is positive, though she has had good wound healing since her last debridement and has not required any further wound debridement. She will continue to follow with here in [place]. Xeloda is Presently on hold. If she continue to have good wound healing can likely consider a 6 month stop date from August, I would keep her on her current regimen as long as tolerated and ideally till her stop date would tentatively put it at 03/16/2025 10/18/2024 Additional gamma knife two weeks ago PET new liver, bone and right breast lesion Decadron taper after gamma knife. Recent fall, mechanical Recommendations: PO Tedizolid 200mg once daily-stopped Continue clofazamine 100mg once daily, started on 02/15/24 Continued Addition of IV ceftaroline 600mg TID-STOPPED Imipenem has been extended and redosed 1g q12hrs with improved renal function Amikacin (STARTED 04/15/24) continued 3 times a week, current dose 900mg, with goal peak 30-35 7/11 peak 31 7/14 tough <0.8 Will need monitoring labs and pr specialist H/H has largely returned to normal with [...] needed. May consist of omadacycline and clofazimine + an additional agent. Batctrim and acyclovir prophylaxis has been discontinued Spoke over the phone to [facility] ID, they agree with our plan. Additional Isolate has been sent to [facility]/, lab of and for additional synergy testing Will setup telemeeting with them in the near future. Discussed with Tia, it may be best to move her management to [facility], given her metastasis and her additional oncology needs. New pseudomonas from 08/09 wound culture Start levofloxacin 750mg daily for 10 days-completed QTC 08/26: 398 Cr slight bump to 1.35, it had improved in the interim. Monitor LFTs, transaminases slightly elevated, ALT as of 10/18 is 45, improved to previous Subjective History of Present Illness: She was [facility] from 05/02/2024 to 05/13/2024. I had discussed with patient's plastic surgeon Dr. Gross that I was concerned about her left chest port and her continuing wound from the left breast area. After her appointment with me patient had sent in pictures of the wound dehiscing. I forwarded these pictures and my concerns to Dr. Gross's office who promp (more content not included)... [facility] 10-17-2024 Note Theraputic amikacin level [facility] 10-12-2024 Note Reviewed, amikacin p eak within goal range [facility] 2024 Instructions Formatting of th is note might be different from the original. Your surgery/procedure is scheduled at [facility] on October 12 2024 at 5;00 pm Arrival Time 3:00 pm [facility] Address: [address] [place] [address], [facility], [facility] in the Emergency Center Parking lot. Report to the front desk assistant in the Emergency/Surgery Registration lobby of the hospital. Notify your SURGEON if you develop any illness such as a cold, cough, fever, sore throat, vomiting or are hospitalized between now and your surgery. Please call Pre-Admission Clinic at [phone] if you have any questions prior to surgery. For questions the morning of surgery, call the Pre-op Department at [phone]. Medication Instructions (Do not stop your medications [...] piercings, hair extensions that contain metal, nail tajik, make-up, and contact lens. You may brush [...] pets in your bed. Please be advised, [facility] has transitioned to a cashless payment [...] RIGHTS AND RESPONSIBILITIES As a patient at [facility], you have the right to: Receive medical care and be informed of who is taking care of you Be treated with dignity and respect Have a family member/telephone service representative of choice and your physician notified of your admission Receive information and actively participate in decisions about your care and treatment Refuse care, treatment and services Decide who may provide your support and speak for you Access roman catholic and spiritual services Participate in ethical issues [...] of hospital charges and payment methods Patient/patient telephone service representative responsibilities are to: Provide information about health status to facilitate care, treatment and services Follow the treatment, plan, keep appointments and speak up when you do not understand the plan Respect the rights of other patients and healthcare personnel Follow organizational rules and regulations that support quality care and a safe environment Fulfill financial obligations as promptly as possible [facility] 2024 Miscellaneous Notes Your surgery/procedure is scheduled at [facility] on October 12 2024 at 5;00 pm Arrival Time 3:00 pm [facility] Address: [address] [place] [address], [address] [address] in the Emergency Center Parking lot. Report to the front desk assistant in the Emergency/Surgery Registration lobby of the hospital. Notify your SURGEON if you develop any illness such as a cold, cough, fever, sore throat, vomiting or are hospitalized between now and your surgery. Please call Pre-Admission Clinic at [phone] if you have any questions prior to surgery. For questions the morning of surgery, call the Pre-op Department at [phone]. Medication Instructions (Do not stop your medications [...] piercings, hair extensions that contain metal, nail tajik, make-up, and contact lens. You may brush [...] in your bed. Please be advised, [facility] has transitioned to a cashless payment system. [...] RIGHTS AND RESPONSIBILITIES As a patient at [facility], you have the right to: Receive medical care and be informed of who is taking care of you Be treated with dignity and respect Have a family member/telephone service representative of choice and your physician notified of your admission Receive information and actively participate in decisions about your care and treatment Refuse care, treatment and services Decide who may provide your support and speak for you Access roman catholic and spiritual services Participate in ethical issues [...] of hospital charges and payment methods Patient/patient telephone service representative responsibilities are to: Provide information about [...] promptly as possible documented in this encounter [facility] 10-07-2024 Note HNO ID: [id number] Author: JOSUE MCCAIN DO, PhD Service: ? Author Type: Physician Type: Progress Notes Filed: 10/07/2024 15:37 Note Text: [facility]UR[facility]COL[facility]Y [facility] [address] [place] [address] [place] OPERATIVE REPORT NAME: Ike Flannery [facility] NO.: [id number] MASK SIMULATION DATE: 2024-10-07 RADIATION TREATMENT START [...] Number of Fractions: 1 After the usual director of quality procedures were performed, fractionated radiosurgery was delivered with use of the Gamma Knife. The Gamma Knife checklists and time outs were performed during this procedure in a standard manner. Josue Mccain DO, PhD [facility] 10-07-2024 Miscellaneous Notes Spoke to pt Surgery is scheduled 10/12 at . Per Bill arrive at 12pm. NPO 8hrs prior. She spoke with Dr. Gregory office and was told to hold her xeloda and eliquis. documented in this encounter [facility] 10-07-2024 Telephone encounter Note Spoke to pt Surgery is scheduled 10/12 at . Per Bill arrive at 12pm. NPO 8hrs prior. She spoke with Dr. Gregory office and was told to hold her xeloda and eliquis. [facility] 10-07-2024 History of Present illness Narrative [...] PATIENT PRESENTS WITH AN IMPLANTABLE OR ATTACHED RF ENGINEER: No RADIOLOGY DEPARTMENT: CT; Exam(s) Completed: Brain PERIPHERAL IV DATA: Not applicable SIGNED BY: PATSY Love) October 07, 2024 8:47 AM documented in this encounter [facility] 10-07-2024 Note HNO ID: [id number] Author: CORRINA GRIDER RT(R) Service: ? Author [...] PATIENT PRESENTS WITH AN IMPLANTABLE OR ATTACHED RF ENGINEER: No RADIOLOGY DEPARTMENT: CT; Exam(s) Completed: Brain PERIPHERAL IV DATA: Not applicable SIGNED BY: RT Ivan(R) October 07, 2024 8:47 AM [facility] 10-07-2024 History of Present illness Narrative [...] PATIENT PRESENTS WITH AN IMPLANTABLE OR ATTACHED RF ENGINEER: No RADIOLOGY DEPARTMENT: MR; Exam(s) Completed: Head: Localization. Aromatherapy Administered: No PERIPHERAL IV DATA: Site assessment: Clean,Dry and Intact, Site disposition Discontinued SIGNED BY: RT Taniya(R) October 07, 2024 8:06 AM documented in this encounter [facility] 10-07-2024 Note HNO ID: [id number] Author: GALO ALLEN RN Service: Radiology Author [...] DATE: October 07, 2024 TIME: 7:38 AM [facility] 10-07-2024 Note HNO ID: [id number] Author: CORRY BEAL RT(Angeles) Service: Radiology Author Type: Technologist Type: Progress [...] PATIENT PRESENTS WITH AN IMPLANTABLE OR ATTACHED RF ENGINEER: No RADIOLOGY DEPARTMENT: MR; Exam(s) Completed: Head: Localization. Aromatherapy Administered: No PERIPHERAL IV DATA: Site assessment: Clean,Dry and Intact, Site disposition Discontinued SIGNED BY: Corry Beal RT(R) October 07, 2024 8:06 AM [facility] 10-07-2024 Note HNO ID: [id number] Author: ALEXANDER BROWNING RN Service: ? Author [...] abuse: no Allergies reviewed with patient, yes. [id number] Mask completed. To imaging for CT Scan and MRI. Ike Flannery returned to department for treatment # 1 of 1. Is patient on immunotherapy? No. Patient's Age: 53 Menstruation Status: Hysterectomy 921 Decadron 4 mg po and xanax 0.5 po given prior to Gamma Knife SRS per order of Dr. Adán MD. 0943 Patient assisted to treatment room. Gamma Knife SRS begun. 1014 Gamma Knife Stereotactic Radiosurgery Completed. 1020 Discharge instructions given to patient. Instructions reviewed by this nurse and patient verbalized an understanding. Pt then discharged. Alexander Browning RN [facility] 10-07-2024 History of Present illness Narrative IKE FLANNERY [id number] 10/07/2024 [facility] Tumor [facility] / Department of Radiation Oncology RADIATION ONCOLOGY - COMPLETION NOTE START DATE OF TREATMENT: October 07, 2024 END DATE OF TREATMENT: October 07, 2024 UNIT: Gamma Knife AREA TREATED: vermis 2nd stage DISEASE: 53 year old year old woman with breast cancer metastatic to liver and brain. Localized disease at diagnosis s/p bilateral mastectomy and right ALND, [id number] disease and subsequent adjuvant RT completed 2023. [...] Dr. Josue Mccain documented in this encounter [facility] 10-07-2024 History of Present illness Narrative ALCONCHENIKE [id number] 10/07/2024 [facility] Marilu Reidhardt Brain Tumor and Neuro-Oncology Center [facility] GAMMA KNIFE STEREOTACTIC RADIOSURGERY (SRS) DAILY PROCEDURE [...] to patient setup, I conferred with the manager medical affairs to approve the final setup. I was [...] M.D. 56:36 AM documented in this encounter [facility] 10-07-2024 Note HNO ID: [id number] Author: MARCOS MCGILL MD Service: Radiation Oncology Author Type: Physician Type: Progress Notes Filed: 10/13/2024 06:36 Note Text: IKE FLANNERY [id number] 10/07/2024 [facility] Marilu Reidhardt Brain Tumor [facility] GAMMA KNIFE STEREOTACTIC RADIOSURGERY (SRS) DAILY PROCEDURE [...] to patient setup, I conferred with the manager medical affairs to approve the final setup. I was [...] Electronically Signed Marcos Mcgill M.D. :36 AM [facility] 10-07-2024 Note HNO ID: [id number] Author: MARCOS MCGILL MD Service: Radiation Oncology Author Type: Physician Type: Progress Notes Filed: 10/13/2024 06:23 Note Text: ALCONCHENIKE [id number] 10/07/2024 [facility] Brain Tumor Center / Department of Radiation Oncology RADIATION ONCOLOGY - COMPLETION NOTE START DATE OF TREATMENT: October 07, 2024 END DATE OF TREATMENT: October 07, 2024 UNIT: Gamma Knife AREA TREATED: vermis 2nd stage DISEASE: 53 year old year old woman with breast cancer metastatic to liver and brain. Localized disease at diagnosis s/p bilateral mastectomy and right ALND, [id number] disease and subsequent adjuvant RT completed 2023. [...] AM Electronically Signed cc: Dr. Josue Mccain [facility] 10-05-2024 History of Present illness Narrative Images from the original note were not included. [facility] [address] Office Jhon Gross MD, PhD Marisela Cuevas, RESTAURANT ASSISTANT MANAGER-PLATE CONDITIONER Shereen Smallwood PA-C Plastic Surgery Progress Note Reason for visit : post-op History of present illness: Ike Flannery is a 53 y.o. female with a history of right breast cancer status post bilateral skin sparing mastectomies (He) and tissue solar power installer reconstruction in 10/28/2023. Her postoperative course was complicated by an infected seroma of her left breast requiring operative washout and tissue solar power installer removal 11/27/23. Intraoperative cultures demonstrated growth of [...] gamma knife radiation scheduled for Thursday at [facility]. She has a whole-body PET scan [...] this note were generated using voice recognition Waterfall dictation software. Although every effort was made to ensure the accuracy of this automated construction ironworker, some errors in construction ironworker may have occurred. AMEENA Kennedy 10/05/24 1443 documented in this encounter [facility] [employer] 09-23-2024 Telephone encounter Note I spoke with Ike to let her know that her second stage of Gamma Knie will be scheduled for October 07. Ike verbalized agreement with this date and had no further questions or concerns at this time but knows to reach out if she does. [facility] Work Phone: 09-23-2024 Miscellaneous Notes I spoke with Ike to let her know that her second stage of Gamma Knie will be scheduled for October 07. Ike verbalized agreement with this date and had no further questions or concerns at this time but knows to reach out if she does. documented in this encounter [facility] 09-22-2024 Telephone encounter Note General Call Caller : Ike Contact Reason for Call : Patient would like a call back in regards to getting there next gamma knife appointment. Please advise. Patient requesting return call ? Yes [facility] 09-22-2024 Miscellaneous Notes General Call Caller : Ike Contact Reason for Call : Patient would like a call back in regards to getting there next gamma knife appointment. Please advise. Patient requesting return call ? Yes documented in this encounter [facility] 09-20-2024 Miscellaneous Notes Patient called and stated she is suffering with more anxiety than usual and would like something called in to [facility] [place]. Is she having anxiety and panic where she needs something as needed or more of a daily, wool supplier anxiety medication? Patient would like wool supplier medication. I sent her in zoloft 50mg daily - she should expect mild improvement in about 30 days - full effect in 8 wks - she can go up with dose if needed she should let me know Patient notified documented in this encounter [facility] 09-20-2024 Telephone encounter Note Patient called and stated she is suffering with more anxiety than usual and would like something called in to [facility] [place]. [facility] 09-20-2024 Telephone encounter Note Is she having anxiety and panic where she needs something as needed or more of a daily, wool supplier anxiety medication? [facility] 09-20-2024 Telephone encounter Note Patient would like usp medication. [facility] 09-20-2024 Telephone encounter Note I sent her in zoloft 50mg daily - she should expect mild improvement in about 30 days - full effect in 8 wks - she can go up with dose if needed she should let me know [facility] 09-20-2024 Telephone encounter Note Patient notified [facility] 09-16-2024 Instructions Geno Pierce APRN.CNP - [...] 6 weeks after surgery. Do not perform account support specialist such as laundry and vacuuming. Do not [...] questions or concerns during business hours call [phone], option 3 or after hours (after 5 pm or on the weekend) call [phone] and ask for the plastic surgery resident / fellow natural history collections curator for further instructions. If you have increasing [...] with light pressure. documented in this encounter [facility] 09-16-2024 Note HNO ID: [id number] Author: GENO PIERCE APRN.PLATE CONDITIONER Service: ? Author Type: Nurse Practitioner Type: Progress Notes Filed: 09/16/2024 14:45 Note Text: Plastic Surgery Note CC: post op HPI: Ike is a 53 year old female who presents today for evaluation of s/p 08/30/2024 Dr. [place] 1. Excisional biopsy right breast skin 2. Explantation of right breast tissue solar power installer intact 3. Debridement of right breast pocket for closure and 20 x 20 cm ARTEMIO drain removed by Plastic Surgey team at [facility] Pt reports she is feeling well. Denies pain. Denies drainage from the incision. Denies fever/chills. Pathology FINAL DIAGNOSIS A. Right breast skin, excision: - Carcinoma involving dermis, see comment. B. Right breast, solar power installer removal: - Grossly unremarkable, collapsed, textured solar power installer (Gross examination only). SS/MLG at 1420 EDT Diagnosis Comment The morphologic features are compatible with breast origin. The lesion measures up to 10 mm and extends to inked specimen margins. ER, NC and HER2 are pending and will be [...] 08/30/24 4:17 PM Gross examination performed at [facility], [facility] [place] [address] B. Hardware/Device/Foreign Body Received fresh labeled as right breast tissue solar power installer is a collapsed textured solar power installer weighing 144.10 g and measuring 15.0 x 14.0 x 2.0 cm with the following inscription ALLOX2 SIENTRA FH 14 . No soft tissue is present. No sections are submitted. The specimen is reviewed with Dr. Kerns. Gross examination only. MLG 08/30/24 1:20 PM Gross examination performed at [facility], [address] [place] [address], [place] [address] Clinical History Pre-op diagnosis: Cancer (HCC) [C80.1] History of reconstruction of both breasts [Z98.890] Performing Lab Diagnostic interpretation performed at: [facility], [address] [place] [address], [address], [place] [id number] CLIA# [id number] Weekday Babysitter: Derick Meadows MD Disclaimer PAST MEDICAL HISTORY [...] days. Max Daily (more content not included)... [facility] 09-16-2024 History of Present illness Narrative Plastic Surgery Note CC: post op HPI: Ike is a 53 year old female who presents today for evaluation of s/p 08/30/2024 Dr. [place] 1. Excisional biopsy right breast skin 2. Explantation of right breast tissue solar power installer intact 3. Debridement of right breast pocket for closure and 20 x 20 cm ARTEMIO drain removed by Plastic Surgey team at [facility] Pt reports she is feeling well. Denies pain. Denies drainage from the incision. Denies fever/chills. Pathology FINAL DIAGNOSIS A. Right breast skin, excision: - Carcinoma involving dermis, see comment. B. Right breast, solar power installer removal: - Grossly unremarkable, collapsed, textured solar power installer (Gross examination only). SS/MLG at 1420 EDT Diagnosis Comment The morphologic features are compatible with breast origin. The lesion measures up to 10 mm and extends to inked specimen margins. ER, NC and HER2 are pending and will be [...] 08/30/24 4:17 PM Gross examination performed at [facility], [address] [place] [address] B. Hardware/Device/Foreign Body Received fresh labeled as right breast tissue solar power installer is a collapsed textured solar power installer weighing 144.10 g and measuring 15.0 x 14.0 x 2.0 cm with the following inscription ALLOX2 SIENTRA FH 14 . No soft tissue is present. No sections are submitted. The specimen is reviewed with Dr. Kerns. Gross examination only. [facility] 08/30/24 1:20 PM Gross examination performed at [facility], [address] [place] [address], [place] [address] Clinical History Pre-op diagnosis: Cancer (HCC) [C80.1] History of reconstruction of both breasts [Z98.890] Performing Lab Diagnostic interpretation performed at: [facility], [address] [place] [address], [address], [place] [address] CLIA# [id number] Weekday Babysitter: Derick Meadows MD Disclaimer PAST MEDICAL HISTORY [...] skin 2. Explantation of right breast tissue solar power installer intact 3. Debridement of right breast pocket [...] 6 weeks after surgery. Do not perform account support specialist such as laundry and vacuuming. Do not [...] questions or concerns during business hours call [phone], option 3 or after hours (after 5 pm or on the weekend) call [phone] and ask for the plastic surgery resident / fellow natural history collections curator for further instructions. If you have increasing [...] 2024 2:43 PM documented in this encounter [facility] 09-16-2024 History of Present illness Narrative Images from the original note were not included. Recording using [employer] software for draft documentation of the visit was discussed with the patient/authorized telephone service representative; all questions welcomed and answered. Patient/authorized telephone service representative agreed to proceed ATTENDING PHYSICIAN: Dr. Bobby Christy IDENTIFICATION: Ike Flannery is a 53 year old woman with an ER positive (41-50%), NC negative, [id number] negative (IHC 0+) metastatic breast cancer with [...] mastectomy with right axillary dissection and tissue solar power installer placement Radiation Anastrozole (January 2024 - May 2024) May 2024 (metastatic diagnosis) Capecitabine (July 2024 - present) Gamma knife (September 07, 2024) INTERVAL HISTORY: Pt presents today by herself for evaluation prior to continuation of therapy for metastatic breast cancer. Metastatic Cancer: - Follows with oncologist in [place], usually monthly, but more frequently recently. - Started Xeloda on September 08; currently on treatment week, with off week starting on the . - Reports fatigue and decreased alertness after taking Xeloda; has not taken today's dose yet. - No nausea or diarrhea reported. - Noticed worsening neuropathy and fish drier fingers; no redness or peeling in palms. - Prefers Xeloda over other treatments due to concerns about hair loss. - Underwent Gamma Knife surgery; reports clearer thoughts and improved speech within 48 hours post-surgery. - Weekly blood work for oncology and infectious disease monitoring. - Last PET scan in May at [facility] - No current pain reported. [...] Lymph 1.00 - 4.00 k/uL 1.22 Abs Hitchcock <0.87 k/uL 0.38 Abs Eosin <0.46 k/uL <0.03 Abs Baso <0.11 k/uL <0.03 NRBC /100 WBC 0.0 IMPRESSION: woman with an ER positive (41-50%), NC negative, Wln7ljr negative (IHC 0+) metastatic breast cancer with [...] which included preparing to see the patient, qkgh-dq-ckqz patient care, completing clinical documentation, performing a medically appropriate examination, counseling and educating the patient/family/caregiver, ordering medications, tests, or procedures, and communicating results to the patient/family/caregiver. Alessandra Syed APRN.ESPERANZA Additional intake questions: Has the patient [...] Alejandro Yang LPN documented in this encounter [facility] 09-16-2024 Note HNO ID: [id number] Author: ALESSANDRA SYED APRN.CNP Service: ? Author Type: Nurse Practitioner Type: Progress Notes Filed: 09/16/2024 08:33 Note Text: Recording using 30 Second [employer] software for draft documentation of the visit was discussed with the patient/authorized telephone service representative; all questions welcomed and answered. Patient/authorized telephone service representative agreed to proceed ATTENDING PHYSICIAN: Dr. Bobby Christy IDENTIFICATION: Ike Flannery is a 53 year old woman with an ER positive (41-50%), NC negative, Hcs1pgw negative (IHC 0+) metastatic breast cancer with [...] mastectomy with right axillary dissection and tissue solar power installer placement Radiation Anastrozole (January 2024 - May 2024) May 2024 (metastatic diagnosis) Capecitabine (July 2024 - present) Gamma knife (September 07, 2024) INTERVAL HISTORY: Pt presents today by herself for evaluation prior to continuation of therapy for metastatic breast cancer. Metastatic Cancer: - Follows with oncologist in [place], usually monthly, but more frequently recently. - Started Xeloda on September 08; currently on treatment week, with off week starting on the . - Reports fatigue and decreased alertness after taking Xeloda; has not taken today's dose yet. - No nausea or diarrhea reported. - Noticed worsening neuropathy and fish drier fingers; no redness or peeling in palms. - Prefers Xeloda over other treatments due to concerns about hair loss. - Underwent Gamma Knife surgery; reports clearer thoughts and improved speech within 48 hours post-surgery. - Weekly blood work for oncology and infectious disease monitoring. - Last PET scan in May at [facility] - No current pain reported. [...] Lymph 1.00 - 4.00 k/uL 1.22 Abs Hitchcock <0.87 k/uL 0.38 Abs Eosin <0.46 k/uL <0.03 Abs Baso <0.11 k/uL <0.03 NRBC /100 WBC 0.0 IMPRESSION: woman with an ER positive (41-50%), NC negative, Gao5flw negative (IHC 0+) metastatic breast cancer with [...] requiring further gloria (more content not included)... [facility] 09-16-2024 Note HNO ID: [id number] Author: ALEJANDRO YANG LPN Service: ? Author [...] Center Electronically Signed By: Alejandro Yang LPN [facility] 09-13-2024 Note Division of Infectio us [...] well s/p gamma knife radiation 08/2024 at [facility] Here to discuss clofazamine, has been approved by IRB, FDA and [employer]. Consent signed and reviewed with Avi Tobar [facility], patient and myself. Updated Consent reviewed and [...] drain. Pembrolizumab stopped. 09/13 Follow up with [facility] again for additional gamma knife, she was found to have brain mets from her breast cancer. Right breast tissue solar power installer was removed for Brain MRI at [facility]. Last culture from 08/12 AFB is positive, though she has had good wound healing since her last debridement and has not required any further wound debridement. She will continue to follow with here in [place]. Xeloda is Presently on hold. If she [...] current dose 900mg, with goal peak 30-35 7/11 peak 31 7/14 tough <0.8 Will need monitoring labs and pr specialist H/H has largely returned to normal with [...] plan. Additional Isolate has been sent to [facility]/, lab of and for additional synergy testing Will setup telemeeting with them in the near future. New pseudomonas from 08/09 wound culture Start levofloxacin 750mg daily for 10 days-completed QTC 08/26: 398 Cr slight bump to 1.34 Monitor LFTs, transaminases slightly elevated, ALT remains elevated though stable 105-120 Most recent at 117 Subjective History of Present Illness: She was [facility] from 05/02/2024 to 05/13/2024. I had discussed with patient's plastic surgeon Dr. Gross that I was concerned about her left chest port and her continuing wound from the left breast area. After her appointment with me patient had sent in pictures of the wound dehiscing. I forwarded these pictures and my concerns to Dr. Gross's office who promptly had patient admitted to [facility] for left Mediport removal and additional debridement. While there she was continued on her IV amikacin, p.o. tedizolid, and oral clofazimine. She is initially receiving clofazimine at a lower dose of 50 mg however this was later corrected and she received her appropriate dose (more content not included)... [facility] 09-08-2024 History of Present illness Narrative [facility] [address] Office Jhon Gross MD, PhD Marisela Cuevas, RESTAURANT ASSISTANT MANAGER-ESPERANZA Smallwood PA-C Plastic Surgery Progress Note Reason for visit : post-op History of present illness: Ike Flannery is a 53 y.o. female with a history of right breast cancer status post bilateral skin sparing mastectomies (He) and tissue solar power installer reconstruction in 10/28/2023. Her postoperative course was complicated by an infected seroma of her left breast requiring operative washout and tissue solar power installer removal 11/27/23. Intraoperative cultures demonstrated growth of [...] . Patient was most recently admitted to [facility] on 08/26/2024 after her oncologist ordered a CT scan confirming brain metastasis after noticing that she was experiencing some slurring of her speech and right hand weakness She was admitted to [facility] and underwent removal of her right breast tissue solar power installer as an MRI was needed to further confirm and categorize her brain metastasis and her tissue solar power installer contained magnets. MRI showed multiple enhancing lesion [...] this note were generated using voice recognition Autogrid*Modal dictation software. Although every effort was made to ensure the accuracy of this automated construction ironworker, some errors in construction ironworker may have occurred. Shereen Smallwood PA-C 09/09/24 1326 documented in this encounter [facility] 09-07-2024 Note HNO ID: [id number] Author: JOSUE MCCAIN DO, PhD Service: ? Author Type: Physician Type: Progress Notes Filed: 09/07/2024 14:44 Note Text: [facility] BRAIN TUMOR AND NEURO-ONCOLOGY CENTER [address] [place] [address] [place] OPERATIVE REPORT NAME: Ike Flannery [facility] NO.: [id number] MASK SIMULATION DATE: 2024-09-07 RADIATION TREATMENT START [...] Number of Fractions: 1 After the usual director of quality procedures were performed, fractionated radiosurgery was delivered with use of the Gamma Knife. The Gamma Knife checklists and time outs were performed during this procedure in a standard manner. Josue Mccain DO, PhD [facility] 09-07-2024 History of Present illness Narrative [facility] BRAIN TUMOR [facility]URO-ONCOL[facility]Y [facility] [address] [place] [address] [place] OPERATIVE REPORT NAME: Ike Flannery [facility] NO.: [id number] MASK SIMULATION DATE: 2024-09-07 RADIATION TREATMENT START [...] Number of Fractions: 1 After the usual director of quality procedures were performed, fractionated radiosurgery was delivered with use of the Gamma Knife. The Gamma Knife checklists and time outs were performed during this procedure in a standard manner. Josue Mccain DO, PhD documented in this encounter [facility] 09-07-2024 Instructions Alexander Browning RN - 09/07/2024 11:06 AM EDT [facility] Gamma Knife Center Discharge Instructions As [...] a physician or hospital other than the [facility] with any problem related to the Gamma Knife procedure, please call your physician, Dr. Sherly Mccain at [phone]. After your treatment, you may experience a [...] call your physician, Dr. Sherly Mccain at [phone] Thursday through Thursday 8:00 am to 5:00 pm. In the evening or on weekends, call [phone] or toll-free [phone] and ask the carton filling machine operator to page your neurosurgeon's resident natural history collections curator. documented in this encounter [facility] 09-07-2024 History of Present illness Narrative [...] PATIENT PRESENTS WITH AN IMPLANTABLE OR ATTACHED RF ENGINEER: No RADIOLOGY DEPARTMENT: CT; Exam(s) Completed: Brain PERIPHERAL IV DATA: Not applicable SIGNED BY: PATSY King) September 07, 2024 8:54 AM documented in this encounter [facility] 09-07-2024 Note HNO ID: [id number] Author: CANDICE SANTILLAN RT (R) Service: Radiology Author Type: Technologist Type: Progress [...] PATIENT PRESENTS WITH AN IMPLANTABLE OR ATTACHED RF ENGINEER: No RADIOLOGY DEPARTMENT: CT; Exam(s) Completed: Brain PERIPHERAL IV DATA: Not applicable SIGNED BY: RT Christine(R) September 07, 2024 8:54 AM [facility] 09-07-2024 History of Present illness Narrative [...] PATIENT PRESENTS WITH AN IMPLANTABLE OR ATTACHED RF ENGINEER: No RADIOLOGY DEPARTMENT: MR; Exam(s) Completed: Head: Localization. Aromatherapy Administered: No PERIPHERAL IV DATA: Site assessment: Clean,Dry and Intact, Site disposition Left in for next appointment PICC SIGNED BY: RT Dagoberto(R) September 07, 2024 8:35 AM documented in this encounter [facility] 09-07-2024 Note HNO ID: [id number] Author: SHEREEN HOPSON RT(Angeles) Service: Radiology Author Type: Closing Manager Type: Progress Notes Filed: 09/07/2024 08:36 Note [...] PATIENT PRESENTS WITH AN IMPLANTABLE OR ATTACHED RF ENGINEER: No RADIOLOGY DEPARTMENT: MR; Exam(s) Completed: Head: Localization. Aromatherapy Administered: No PERIPHERAL IV DATA: Site assessment: Clean,Dry and Intact, Site disposition Left in for next appointment PICC SIGNED BY: RT Dagoberto(R) September 07, 2024 8:35 AM [facility] 09-07-2024 Note HNO ID: [id number] Author: PRECIOUS MEJIA RN Service: Nursing Author [...] DATE: September 07, 2024 TIME: 8:18 AM [facility] 09-07-2024 Note HNO ID: [id number] Author: ALEXANDER BROWNING RN Service: ? Author [...] abuse: no Allergies reviewed with patient, yes. [id number] Mask completed. To imaging for CT Scan [...] understanding. Pt then discharged. Alexander Browning RN [facility] 09-07-2024 History of Present illness Narrative September 07, 2024 0722 Ike arrived ambulatory with: self. Transportation home verified: yes, with [facility], who will be picking her up today. Ike here for today for imaging, mask fitting, pre-planning for Icon mask based Gamma Knife Stereotactic Radiosurgery by radiation therapist, and single session mask based treatment. ID verified with patient with two identifiers, name and birthdate. OC [place] assessed for the following: Does Ike have any pain? No. Pain 0 on scale of 0-10 Does Ike have: Difficulty chewing and/or swallowing: no Fall risk assessment: Not at risk for falls Concerns about physical or emotional abuse: no Allergies reviewed with patient, yes. [id number] Mask completed. To imaging for CT Scan [...] Alexander Browning RN documented in this encounter [facility] 09-07-2024 History of Present illness Narrative IKE FLANNERY [id number] 09/07/2024 [facility] Marilu Castro Brain Tumor and Neuro-Oncology Center [facility] GAMMA KNIFE STEREOTACTIC RADIOSURGERY (SRS) DAILY PROCEDURE [...] to patient setup, I conferred with the manager medical affairs to approve the final setup. I was [...] M.D. 51:00 PM documented in this encounter [facility] 09-07-2024 History of Present illness Narrative IKE FLANNERY [id number] 09/07/2024 [facility] Marilu Garciat Brain Tumor & Neuro-Oncology Center Department of Radiation Oncology [facility] RADIATION ONCOLOGY GAMMA KNIFE SIMULATION NOTE DATE [...] after treatment planning. documented in this encounter [facility] 09-07-2024 History of Present illness Narrative ANGELA FLANNERYTH [id number] 09/07/2024 [facility] Marilu Lucero Gloria Brain Tumor & Neuro-Oncology Center Department of Radiation Oncology [facility] RADIATION ONCOLOGY: COMPLETION NOTE DATE OF TREATMENT: [...] written directive. Staff Physician Quynh Melo M.D./ 58:24 PM Electronically Signed cc: Kaye Manuel, PLATE CONDITIONER [address] [place] [address] Patient Care Team: Kaye Manuel CNP as PCP - General (Family Medicine) Gino Flower APRN Chawla, Apoorva, MD as Referring (Hematology/Oncology) Shereen Smallwood PA-C as Referring (Orthopedics) Saman Joe, RN as Specialty Shift Boss (Hematology/Oncology) documented in this encounter [facility] 09-07-2024 Note HNO ID: [id number] Author: SAM MELO MD Service: Radiation Oncology Author Type: Physician Type: Progress Notes Filed: 09/07/2024 13:00 Note Text: IKE FLANNERY [id number] 09/07/2024 [facility] Marilu Castro Brain Tumor and Neuro-On[facility] Center [facility] GAMMA KNIFE STEREOTACTIC RADIOSURGERY (SRS) DAILY PROCEDURE [...] to patient setup, I conferred with the manager medical affairs to approve the final setup. I was [...] Electronically Signed QUYNH MELO M.D. 51:00 PM [facility] 09-07-2024 Note HNO ID: [id number] Author: SAM MELO MD Service: Radiation Oncology Author Type: Physician Type: Progress Notes Filed: 09/07/2024 20:24 Note Text: IKE FLANNERY [id number] 09/07/2024 [facility] Department of Radiation Oncology [facility] RADIATION ONCOLOGY: COMPLETION NOTE DATE OF TREATMENT: [...] written directive. Staff Physician Quynh Melo M.D./ 58:24 PM Electronically Signed cc: Kaye Manuel CNP [address] [place] [address] Patient Care Team: Kaye Manuel CNP as PCP - General (Family Medicine) Gino Flower APRN Chawla, Apoorva, MD as Referring (Hematology/Oncology) Shereen Smallwood PA-C as Referring (Orthopedics) Saman Joe RN as Specialty Shift Boss (Hematology/Oncology) [facility] 09-07-2024 Note HNO ID: [id number] Author: SAM MELO MD Service: Radiation Oncology Author Type: Physician Type: Progress Notes Filed: 09/07/2024 10:53 Note Text: IKE FLANNERY [id number] 09/07/2024 [facility] Jazmine Reidhardt Brain Tumor AND Neuro-Oncology Center Department of Radiation Oncology [facility] RADIATION ONCOLOGY GAMMA KNIFE SIMULATION NOTE DATE [...] Electronically Signed Quynh Melo M.D. 0:53 AM [facility] 09-05-2024 Miscellaneous Notes Pt calling into the office for wound check appointment. Ok to schedule pt per Shereen DUFFY. Pt scheduled for 09/08/2024. - Dee Dee Buck RN 09/05/24 3:13 PM documented in this encounter [facility] 09-05-2024 Telephone encounter Note Pt calling into the office for wound check appointment. Ok to schedule pt per Shereen DUFFY. Pt scheduled for 09/08/2024. - Dee Dee Buck RN 09/05/24 3:13 PM [facility] 09-05-2024 Note HNO ID: [id number] Author: MARISELA CISNEROS MD Service: ? Author Type: Physician Type: Progress Notes Filed: 09/05/2024 14:49 Note Text: [facility] VISIT I have communicated my name and active licensure. The patient?s identity and physical location were verified at the time of this visit. Ike Flannery or their legal telephone service representative has been informed of the risks [...] her left IAC (more content not included)... [facility] 09-05-2024 History of Present illness Narrative [facility] VISIT I have communicated my name and active licensure. The patient s identity and physical location were verified at the time of this visit. Ike Flannery or their legal telephone service representative has been informed of the risks [...] Marisela Cisneros MD cc: Kaye Manuel CNP [address] [place] [address] No referring provider defined for this encounter. Patient Care Team: Kaye Manuel CNP as PCP - General (Family Medicine) Gino Flower APRN Chawla, Apoorva, MD as Referring (Hematology/Oncology) Shereen Smallwood PA-C as Referring (Orthopedics) Saman Joe RN as Specialty Shift Boss (Hematology/Oncology) documented in this encounter [facility] 09-01-2024 Note HNO ID: [id number] Author: CLAIRE STRATTON RN Service: Care Management [...] Care Physician Primary Care Physician Name/Phone: Kaye Manuel, PLATE CONDITIONER [phone] Discharge Information Row Name Admission (Current) from 08/26/2024 in [facility] Agency [facility], an [employer] [facility] [place], [place] Phone/Fax and F: [phone] Patient has been on two IV abx at home thru PICC since December [address] Herman Lui with [facility] ph: [phone]. Patient and spouse independent with dressing changes. Patient gets lab draws at [facility] ph: [phone] Active with [employer] [facility] ph: [phone] and f: [phone]. Per [facility], since [facility] is not following for homegoing IV abx and the order is written by an outside provider they will not require a new order. Patient set to resume services on discharge. Discharge paperwork sent to agency. Spouse to transport. Ready for discharge from . SIGNATURE: Claire Stratton RN PATIENT NAME: Ike Flannery DATE: September 01, 2024 TIME: 1:36 PM [facility] 08-31-2024 Note HNO ID: [id number] Author: KAYLEIGH SINGH MD Service: Neurosurgery Author [...] Kayleigh Singh MD PGY-3, Neurological Surgery Pager: [phone] Neurosurgery On-Call: [phone] Please page [phone] from 6PM to 6:30AM (1800 [phone]) Or if unable to be reached [facility] 08-31-2024 Note HNO ID: [id number] Author: JOSUE MCCAIN DO, PhD Service: Neurology [...] will be mask based Gamma Knife next Thu. If the larger vermian met is greater than 2 cm with planning then she will require 2 stage treatment 1 month apart for that lesion. She is on decadron 4mg bid and and I would recommend decreasing to 4mg a day and see how she does and could always go back up if the speech worsened. Josue Mccain DO, PhD [facility] 08-31-2024 Miscellaneous Notes Spoke with microbiology Culture was positive for AFB documented in this encounter [facility] 08-31-2024 Telephone encounter Note Spoke with microbiology Culture was positive for AFB [facility] 08-31-2024 Note HNO ID: [id number] Author: CLAIRE STRATTON RN Service: Care Management [...] [address] Herman Lui with [facility] ph: [phone]. Patient and spouse independent with dressing changes. Patient gets lab draws at [facility] ph: [phone] Active with [facility] ph: [phone] and f: [phone]. Per [facility], since [facility] is not [...] DATE: August 31, 2024 TIME: 11:11 AM [facility] 08-31-2024 Note HNO ID: [id number] Author: EV CORTEZ DO Service: Hematology/Oncology Author Type: Physician Type: Progress Notes Filed: 08/31/2024 15:51 Note Text: SOLID TUMOR SERVICE PROGRESS NOTE Overnight: From 5P - 7A, [place] [phone]. Subjective INTERVAL HPI: JAVIER COREA. Overnight, she [...] 4 extremities and hands/feet. Sensation intact bilaterally. Able Bodied Tankerman strength equal and strong bilaterally. No dysmetria. [...] q 12 HR LABORATORY DATA Recent Labs 08/31/2442008/30/2434508/29/24 0300 WBC 8.37 9.36 9.86 RBC 2.85* [...] <0.03 ABSBASO <0.03 <0.03 <0.03 Recent Labs 08/31/2442008/30/24 03408/29/24 0300 NA 140 143 143 K 3.8 [...] 1206 Peripherally Inserted (PICC) Left Arm 5.0 Yi 120 days Drain Duration Drain/Tube 08/30/24 1253 [facility] (more content not included)... [facility] 08-30-2024 Note HNO ID: [id number] Author: EV CORTEZ DO Service: Hematology/Oncology Author Type: Physician Type: Progress Notes Filed: 08/30/2024 21:38 Note Text: SOLID TUMOR SERVICE PROGRESS NOTE Overnight: From 5P - 7A, [place] [phone]. Subjective INTERVAL HPI: JAVIER COREA. She is feeling well today. She had her tissue solar power installer removed today, and safety screen completed. Overnight, [...] 4 extremities and hands/feet. Sensation intact bilaterally. Able Bodied Tankerman strength equal and strong bilaterally. No dysmetria. Romberg negative. No gait abnormalities. Zfkfep-ky-zcua and lmdl-qi-bsok intact bilaterally. No notable dysarthria on exam. [...] ABSBASO <0.03 <0.03 <0.03 Recent Labs 08/30/24 0346 08/29/24 0300 08/28/24 0258 NA 143 143 139 [...] 05/02/24 1206 Per (more content not included)... [facility] 08-30-2024 Note HNO ID: [id number] Author: DEENA VU DO Service: Plastic Surgery [...] AND Reconstructive Surgery Hand Surgery Resident Pager: [phone] After 6PM AND on weekends, please page [phone] (Plastic Surgery on-call) [facility] 08-30-2024 Note HNO ID: [id number] Author: SAM STUART MD Service: ? Author [...] Successful intubation technique: video laryngoscopy Devices used: Tech21 Endotracheal tube insertion site: oral Blade: Bo Blade size: #3 ETT size (mm): 7.0 Measured from: lips Measurement (cm): 22 Placement verified by: capnometry Cormack-Lehane Classification: grade I - full view of glottis Number of attempts at approach: 1 SIGNATURE: Sma Stuart MD PATIENT NAME: Ike Flannery DATE: August 30, 2024 TIME: 12:45 PM CSN: [id number] [facility] 08-30-2024 Note HNO ID: [id number] Author: CHRISTY DA SILVA MD Service: Infectious [...] D5W 50 mL 900 mg, INTRAVENOUS, EVERY MON-THU-THU -- 08/29/24 2100 acyclovir 400 mg tab(s) [...] is a 53 year old female from [facility] with -HTN -anemia -LLE DVT on Eliquis -R breast cancer 04/2023 s/p chemo x 16 cycles through 09/29/2023 followed by bilateral mastectomy with b/l expanders c/b L sided seroma -10/2023 bilateral skin sparing mastectomies and tissue explander reconstruction complicated by infected seroma L side - 11/27/2023 : Left breast IANDD and solar power installer removal - 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 Treated by ID (Dr Noguera in [place]) with Amikacin 750 mg MWF, Imipenem 1 [...] have right sided brain mass. Transferred to [facility] for management. Needs right tissue solar power installer to be removed in order to get MRI in order to be evaluated for radiation therapy. Planned for OR 08/30 for removal of tissue solar power installer. RECOMMENDATIONS: Continue current abx regimen - Omadacycline 300 mg qd - from home - Clofazimine 100 mg qh - from home - Amikacin 900 mg three times weekly with goal peak 30 (more content not included)... [facility] 08-29-2024 Note HNO ID: [id number] Author: CLAIRE STRATTON RN Service: Care Management Author Type: Registered Nurse Type: Care Mgt Initial Assessment Filed: 08/30/2024 11:45 Note Text: CARE MANAGEMENT: ASSESSMENT AND DISCHARGE PLAN SERVICE DATE: August 29, 2024 SERVICE TIME: 1:32 PM PCP: Kaye Manuel CNP, CNP Primary Contact: Extended Emergency Contact Information Primary Emergency Contact: Jean Carlos Becker Relation: Spouse Admission Status: Inpatient Insurance Provider: [facility] MEDICAID OF [place] Discharge Planning requested by: Per Department Practice Potential Transition Plans To Be Determined, Home Care Pharmacy Advance Directives Current Advance Directive: None Bench Assembly Inspector Attempted to Assist with AD Completion: Yes [...] Care Discharge Planning Patient Goal(s): General wellness [place] [facility] Explained: [place] [facility] [place] Given: No Reason Not Given: [...] and new finding of brain metastases at [facility]. Patient from home with spouse and mom. Independent with ADL's with no DME CORRECTIONAL NURSE. 6 clicks 24, currently on RA. Patient has been on two IV abx at home thru PICC since December [address] Herman Lui with [facility] ph: [phone]. Active with [facility] ph: [phone] and f: [phone]. Will need to determine if inpatient ID doctor will order COPAT to resume services or if orders will be needed from Dr. Lui. Patient and spouse independent with dressing changes. Patient gets lab draws at [facility] ph: [phone] - will need to send updated COPAT [...] DATE: August 29, 2024 TIME: 1:32 PM [facility] 08-29-2024 Note HNO ID: [id number] Author: GENNA SAHU DO Service: Hematology/Oncology Author Type: Physician Type: Progress Notes Filed: 08/29/2024 12:42 Note Text: SOLID TUMOR SERVICE PROGRESS NOTE Overnight: From 5P - 7A, [place] [phone]. Subjective INTERVAL HPI: JAVIER COREA. She is [...] Output Intake/Output Summary (Last 24 hours) at 08/29/2024 0719 Last data filed at 08/28/20242008 Gross per [...] Prominent right breast c/w presence of tissue solar power installer. Skin: Warm, dry. Chronic wound of left breast with clean pink base Neurologic: AOx3. CN: II-XII intact. Strength 5/5 proximally and distally in all 4 extremities and hands/feet. Sensation intact bilaterally. Able Bodied Tankerman strength equal and strong bilaterally. No dysmetria. Romberg negative. No gait abnormalities. Ztoyvd-sg-nipw and hytc-hs-wavq intact bilaterally. No notable dysarthria on exam. [...] unspecified laterality (HCC (more content not included)... [facility] 08-28-2024 Note HNO ID: [id number] Author: LOU ELIZABETH MD Service: Oncology Author Type: Physician Type: Progress Notes Filed: 08/28/2024 19:38 Note Text: SOLID TUMOR SERVICE PROGRESS NOTE Overnight: From 5P - 7A, [place] [phone]. Subjective INTERVAL HPI: JAVIER COREA. She is [...] Prominent right breast c/w presence of tissue solar power installer. Skin: Warm, dry. Chronic wound of left breast with clean pink base Neurologic: AOx3. CN: II-XII intact. Strength 5/5 proximally and distally in all 4 extremities and hands/feet. Sensation intact bilaterally. Able Bodied Tankerman strength equal and strong bilaterally. No dysmetria. Romberg negative. No gait abnormalities. Jzasih-cn-rfrh and lnxd-aa-rkce intact bilaterally. No notable dysarthria on exam. [...] 08/27/2024 Yes Super (more content not included)... [facility] 08-26-2024 Note HNO ID: [id number] Author: RISHI ANDREA MD Service: Oncology Author Type: Resident Type: Plan of Care Filed: 08/26/2024 15:58 Note Text: PLAN OF CARE ____ Patient Name: Ike Flannery Date: August 26, 2024 Re: Antibiotic regimen Information below is a summary of this patient's ID plan from Avi Tobar, SukiD, BCPS, research pharmacist at [facility], sent by email on 08/26/24. Dr. Herman Lui said that he will call [facility] ID. Dr. Herman Lui can be reached at cell phone [phone], please feel free to share with ID. [...] lot. Clofazimine will not reconcile directly into App Press since [facility] has an individually built entry, so please [...] cultures/sensitivities, etc. Hopefully, there's a lot in [facility] Care Everywhere. Patient is undergoing work up [...] Ike Flannery DATE: August 26, 2024 TIME: 1104 PAGER: [phone] [facility] 08-25-2024 Note The following action s were done/reviewed. Care was coordinated accordingly and patient was communicated with. Follow up EKG done on 08/24 for levofloxacin and clofazimine QT c prolongation obtained. Results reviewed and approved by Dr. Lui. Uploaded into [employer]. I spoke to Richie Hanna CNP on the phone and reviewed recent labs (potassium/serum creatinine/eGFR). Recommendation accepted to decrease spironolactone from 25 mg daily to 12.5 mg daily. Prescription sent and updated in App Press. Patient will self-monitor and record BP/HR at home and communicate if it increases. Follow up on continued hepatic monitoring: INR results from 08/[address] Lui to review. CMP results from 08/24 are pending fax from [facility] and posting in [place] [employer]. Avi Tobar, SukiD, BCPS; Clinical Research Pharmacist. [facility] 08-25-2024 History of Present illness Narrative Called patient's pharmacist from [facility] and pharmacist stated that patient's serum [...] Garcia 08/25/24 1001 documented in this encounter [facility] 08-24-2024 Note [id number] Theresa Flannery 1970 F Date Provider Department Center 08/24/2024 [id number]-VINICIUSCARLAAVI [facility] INF Anthony Heal Family History Adopted: Yes Problem Relation Age of Onset Heart attack Father Family Status - Relation Status Age at Father [facility] 08-23-2024 Note Spoke with Rajinder at [facility] to determine if CMP was done with CBC and liver panel from 08/22. He stated one was not done but they still had tube and could add CMP on. Fax number confirmed. CMP orders faxed to [facility]. [facility] 08-19-2024 Note Medication list updated [facility] 08-18-2024 History of Present illness Narrative Images from the original note were not included. [facility] [address] Office Jhon Gross MD, PhD AMEENA Kennedy PA-C Plastic Surgery Progress Note Reason for visit : post-op History of present illness: Ike Flannery is a 53 y.o. female with a history of right breast cancer status post bilateral skin sparing mastectomies (He) and tissue solar power installer reconstruction in 10/28/2023. Her postoperative course was complicated by an infected seroma of her left breast requiring operative washout and tissue solar power installer removal 11/27/23. Intraoperative cultures demonstrated growth of [...] patient's mycobacterium labs were sent further to [facility] per Infectious Disease request. The patient [...] to ensure the accuracy of this automated construction ironworker, some errors in construction ironworker may have occurred. Shereen Smallwood PA-C 08/29/24 1129 documented in this encounter [facility] 08-17-2024 Note Med list changes [facility] 08-16-2024 Note Division of Infectio us Diseases [...] has been approved by IRB, FDA and [employer]. Consent signed and reviewed with Avi Tobar [facility], patient and myself. 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 Clofazimine JOSÉ MIGUEL remains <= 0.5 Imipenem remains at JOSÉ MIGUEL of 16 No JOSÉ MIGUEL creep noted. There is an additional culture from 03/21/24 that is pending, has been sent to [facility] for further work up. Awaiting those [...] peak 30-35 Will need monitoring labs and pr specialist H/H has largely returned to normal with cessation of tidezolid. Desensitized to omadacycline-tolerating well Current regimen: Clofazimine 100mg daily Omadacycline 300mg daily Imipenem 1g q12hrs IV amikacin 900mg three times a week, with peaks around 30 to 35 Spoke over the phone to [facility] ID, they agree with our plan. Additional Isolate has been sent to [facility]/, lab of and for additional synergy testing [...] Subjective History of Present Illness: She was [facility] from 05/02/2024 to 05/13/2024. I had discussed with patient's plastic surgeon Dr. Gross that I was concerned about her left chest port and her continuing wound from the left breast area. After her appointment with me patient had sent in pictures of the wound dehiscing. I forwarded these pictures and my concerns to Dr. Gross's office who promptly had patient admitted to [facility] for left Mediport removal and additional debridement. While there she was continued on her IV amikacin, p.o. tedizolid, and oral clofazimine. She is initially receiving clofazimine at a lower dose of 50 mg however this was later corrected and she received her appropriate dose o (more content not included)... [facility] 08-12-2024 Miscellaneous Notes Jared from [facility] called to say patient was positive for AFB and he sent it out. Message sent to Dr. Gross and Shereen documented in this encounter [facility] 08-12-2024 Telephone encounter Note Jared from [facility] called to say patient was positive for AFB and he sent it out. [facility] 08-12-2024 Telephone encounter Note Message sent to Dr. Gross and Shereen [facility] 08-10-2024 History of Present illness Narrative Subjective [...] right breast of female, estrogen receptor positive ([facility]) -continue follow-up with Oncology both locally and at [facility] documented in this encounter [facility] 08-10-2024 Instructions Formatting of th is note might be different from the original. Your surgery/procedure is scheduled at [facility] on 08/12/24 at 8:00 Arrival Time 6:00 [facility] Address: [address] [place] [address], [address] [place] [address] in the Emergency Center Parking lot. Report to the front desk assistant in the Emergency/Surgery Registration lobby of the hospital. Notify your SURGEON if you develop any illness such as a cold, cough, fever, sore throat, vomiting or are hospitalized between now and your surgery. Please call Pre-Admission Clinic at [phone] if you have any questions prior to surgery. For questions the morning of surgery, call the Pre-op Department at [phone]. Medication Instructions (Do not stop your medications [...] would like to schedule therapy at a [facility] facility, please call [phone] ([phone]). Do not use lotions, creams, powders, perfume, make up, cologne or after-shaves day of surgery. Remove ALL jewelry including wedding rings, body piercings, hair extensions that contain metal, nail tajik, make-up, and contact lens. You may brush [...] pets in your bed. Please be advised, [facility] has transitioned to a cashless payment [...] RIGHTS AND RESPONSIBILITIES As a patient at [facility], you have the right to: Receive medical care and be informed of who is taking care of you Be treated with dignity and respect Have a family member/telephone service representative of choice and your physician notified of your admission Receive information and actively participate in decisions about your care and treatment Refuse care, treatment and services Decide who may provide your support and speak for you Access roman catholic and spiritual services Participate in ethical issues [...] of hospital charges and payment methods Patient/patient telephone service representative responsibilities are to: Provide information about health status to facilitate care, treatment and services Follow the treatment, plan, keep appointments and speak up when you do not understand the plan Respect the rights of other patients and healthcare personnel Follow organizational rules and regulations that support quality care and a safe environment Fulfill financial obligations as promptly as possible [facility] 08-10-2024 Miscellaneous Notes Your surgery/procedure is scheduled at [facility] on 08/12/24 at 8:00 Arrival Time 6:00 [facility] Address: [address] [place] [address], [address] [address] in the Emergency Center Parking lot. Report to the front desk assistant in the Emergency/Surgery Registration lobby of the hospital. Notify your SURGEON if you develop any illness such as a cold, cough, fever, sore throat, vomiting or are hospitalized between now and your surgery. Please call Pre-Admission Clinic at [phone] if you have any questions prior to surgery. For questions the morning of surgery, call the Pre-op Department at [phone]. Medication Instructions (Do not stop your medications [...] would like to schedule therapy at a [facility] facility, please call [phone] ([phone]). Do not use lotions, creams, powders, perfume, make up, cologne or after-shaves day of surgery. Remove ALL jewelry including wedding rings, body piercings, hair extensions that contain metal, nail tajik, make-up, and contact lens. You may brush [...] pets in your bed. Please be advised, [facility] has transitioned to a cashless payment [...] RIGHTS AND RESPONSIBILITIES As a patient at [facility], you have the right to: Receive medical care and be informed of who is taking care of you Be treated with dignity and respect Have a family member/telephone service representative of choice and your physician notified of your admission Receive information and actively participate in decisions about your care and treatment Refuse care, treatment and services Decide who may provide your support and speak for you Access roman catholic and spiritual services Participate in ethical issues [...] of hospital charges and payment methods Patient/patient telephone service representative responsibilities are to: Provide information about [...] promptly as possible documented in this encounter [facility] 08-09-2024 Miscellaneous Notes LEFT VOICEMAIL SURGERY SCHEDULED 08/12 AT 8AM, ARRIVE AT 6AM. NPO 8HRS PRIOR. documented in this encounter [facility] 08-09-2024 Telephone encounter Note LEFT VOICEMAIL SURGERY SCHEDULED 08/12 AT 8AM, ARRIVE AT 6AM. NPO 8HRS PRIOR. [facility] 08-08-2024 History of Present illness Narrative Images from the original note were not included. [facility] [address] Office Jhon Gross MD, PhD Marisela Cuevas, RESTAURANT ASSISTANT MANAGER-ESPERANZA Smallwood PA-C Plastic Surgery Progress Note Reason for visit : post-op History of present illness: Ike Flannery is a 53 y.o. female with a history of right breast cancer status post bilateral skin sparing mastectomies (He) and tissue solar power installer reconstruction in 10/28/2023. Her postoperative course was complicated by an infected seroma of her left breast requiring operative washout and tissue solar power installer removal 11/27/23. Intraoperative cultures demonstrated growth of [...] to ensure the accuracy of this automated construction ironworker, some errors in construction ironworker may have occurred. Shereen Smallwood PA-C 08/29/24 1141 documented in this encounter [facility] 08-04-2024 History of Present illness Narrative Updated wound care orders sent to [facility] wound care at [phone] INÉS PAYNE PA-C 08/04/24 1551 documented in this encounter [facility] 08-03-2024 History of Present illness Narrative Images from the original note were not included. [facility] [address] Office Jhon Gross MD, PhD Marisela Cuevas, RESTAURANT ASSISTANT MANAGER-PLATE CONDITIONER Shereen Smallwood PA-C Plastic Surgery Progress Note Reason for visit : post-op History of present illness:Ike Flannery is a 53 y.o. female with a history of right breast cancer status post bilateral skin sparing mastectomies (He) and tissue solar power installer reconstruction in 10/28/2023. Her postoperative course was complicated by an infected seroma of her left breast requiring operative washout and tissue solar power installer removal 11/27/23. Intraoperative cultures demonstrated growth of [...] this note were generated using voice recognition Waterfall dictation software. Although every effort was made to ensure the accuracy of this automated construction ironworker, some errors in construction ironworker may have occurred. Shereen Smallwood PA-C 08/29/24 1144 documented in this encounter [facility] 07-27-2024 History of Present illness Narrative The patient was recently diagnosed with metastatic breast cancer to the liver and a started treatment with Medical Oncology at [facility], we discussed in detail that this [...] future treatment planning. documented in this encounter [facility] 07-22-2024 Telephone encounter Note Contacted patient [...] with recommendations once known. Saman Joe RN [facility] Work Phone: 07-22-2024 Miscellaneous Notes Contacted [...] next week. Patient requests clarification if Dr Chrisyt has exact timing she would like patient to start as she has had difficulty with healing up to this point and is anxious to delay treatment for a significant period of time. Will review with Dr Christy and will update patient with recommendations once known. Saman Joe RN Ike Flannery is calling Bobby Christy MD today regarding Shift Boss - Other Patient called to let Dr. [...] by name and birthdate. Requesting response back: [phone] (home) [phone] (cell) Karen Mirza July 22, 2024 documented in this encounter [facility] 07-22-2024 Telephone encounter Note Ike Flannery is calling Bobby Christy MD today regarding Shift Boss - Other Patient called to let Dr. [...] by name and birthdate. Requesting response back: [phone] (home) [phone] (cell) Karen Mirza July [birth year], 2024 [facility] 07-21-2024 Note HNO ID: [id number] Author: TOSHA HYDE RN Service: ? Author Type: Registered Nurse Type: Progress Notes Filed: 07/21/2024 16:48 Note Text: Additional intake questions: Has the patient had fever, nausea, vomiting, diarrhea, constipation, fatigue for > 1 week? No Does the patient have a decreased appetite? No Does patient want to see a Waste Oil Pumper? No (yes to any of above refer [...] Resource Center Electronically Signed By:Tosha Hyde RN [facility] 07-21-2024 Note HNO ID: [id number] Author: BOBBY CHRISTY MD Service: ? Author Type: Physician Type: Progress Notes Filed: 07/21/2024 16:48 Note Text: IDENTIFICATION: Ike Flannery is a 53 year old surgically postmenopausal woman with recent diagnosis of metastatic breast cancer referred by Dr. Aarti Hope for medical oncology consultation. HISTORY OF PRESENT ILLNESS: She was initially diagnosed with a lymph-node positive ER-weakly positive (12-15%), NC-negative, HER2-negative (IHC 0 on core biopsy, 1+ on residual disease at time of mastectomy) right breast cancer in March 2023. She was treated with neoadjuvant chemo-immunotherapy therapy consisting of pemboliziumab with paclitaxel and carboplatin followed by doxorubicin and cyclophosphamide with continuing pembrolizumab then underwent bilateral mastectomy with right axillary dissection and tissue solar power installer reconstruction at which time there was multifocal residual disease, [id number]. She received adjuvant radiation and initiated adjuvant anastrozole in about January 2024 or March 2024. She was also prescribed adjuvant abemaciclib which she believes she took for only about a week until her course was complicated by an infected seroma requiring removal of the left tissue solar power installer, mycobacterial infection, and pancytopenia. She had a BMBx in April and is interested in having that reviewed at [facility]. She has been dealing with issues [...] primary that is ER-positive (41-50% weak staining), NC-negative and HER2-negative (IHC 0). PMH: She has a h/o HTN, DVT (on Eliquis); she is s/p hysterectomy and subsequent BSO. FH:She is adopted and family history is not known. 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 She is engaged and [...] for transaminase elevations. IMPRESSION: Metastatic ER-weakly positive, NC-negative, HER2-negative breast cancer involving liver with mycobaterium [...] up referral to Dr. Owusu here at [facility]. We discussed potential future treatment options [...] which included preparing to see the patient, snif-bp-sllq patient care, completing clinical documentation, performing a medically appropriate examination, counseling and educating the patient/family/caregiver, and communicating with other HCPs (not separately reported). Bobby Christy MD CC: Dr. Aarti Hope [facility] 07-19-2024 Note HNO ID: [id number] Author: KRYSTIN BARRAGAN MD Service: ? Author Type: Physician Type: Progress Notes Filed: 07/27/2024 09:06 Note Text: INFECTIOUS DISEASES [facility] Ike Flannery is being seen in consultation [...] 28/2024 followed by bilateral mastectomy with bilateral solar power installer placement, complicated by large L side large seroma. - 10/2023 bilateral skin sparing mastectomies and tissue explander reconstruction complicated by infected seroma L side - 11/27/2023 : Left breast IANDD and solar power installer removal - intra op cx pos for [...] mouth. spironolactone (ALDACTONE) (more content not included)... [facility] 07-19-2024 History of Present illness Narrative INFECTIOUS DISEASES [facility] Ike Flannery is being seen in consultation at the request of Dr. Aarti Hernandez/ Shereen Selin, PAfor advice and/or opinion regarding the management of M abscess breast infection Chief complaint breast infection Note from patient, EPIC and Care everywhere HISTORIES: HPI: Patient is a 53 year old female history of hypertension, anemia, LLE DVT on Eliquis, R breast cancer 04/2023 s/p chemo x16 to till September 28/2024 followed by bilateral mastectomy with bilateral solar power installer placement, complicated by large L side large seroma. - 10/2023 bilateral skin sparing mastectomies and tissue explander reconstruction complicated by infected seroma L side - 11/27/2023 : Left breast I&D and solar power installer removal - intra op cx pos for [...] 28/2024 followed by bilateral mastectomy with bilateral solar power installer placement, complicated by large L side large seroma. - 10/2023 bilateral skin sparing mastectomies and tissue explander reconstruction complicated by infected seroma L side - 11/27/2023 : Left breast I&D and solar power installer removal - intra op cx pos for [...] abscessus again I wound contact Dr Sanchez ([facility] for dual b lactam synergy test) I called Dr Herman Lui at [facility] and discussed plans with him. RTC as needed Krystin Barillas MD documented in this encounter [facility] 07-18-2024 Miscellaneous Notes Spoke to patient Surgery time change on 07/21. Pt stated that she cannot do this due to her having an appointment at [facility] for her bladder cancer. PT stated that she was wondering if she even actually needed surgery because she thinks her breast is looking better and feeling better. Pt is going to send pictures through [employer] and I told her I would be sending the pictures to Dr. Gross as well. documented in this encounter [facility] 07-18-2024 Telephone encounter Note Spoke to patient Surgery time change on 07/21. Pt stated that she cannot do this due to her having an appointment at [facility] for her bladder cancer. PT stated that she was wondering if she even actually needed surgery because she thinks her breast is looking better and feeling better. Pt is going to send pictures through [employer] and I told her I would be sending the pictures to Dr. Gross as well. [facility] 07-15-2024 Instructions Formatting of th is note might be different from the original. Your surgery/procedure is scheduled at [facility] on 07-19-24 at 4:15 pm Arrival Time 2:15 pm [facility] Address: [address] [place] [address], [address] [place] [address] in the Emergency Center Parking lot. Report to the front desk assistant in the Emergency/Surgery Registration lobby of the hospital. Notify your SURGEON if you develop any illness such as a cold, cough, fever, sore throat, vomiting or are hospitalized between now and your surgery. Please call Pre-Admission Clinic at [phone] if you have any questions prior to surgery. For questions the morning of surgery, call the Pre-op Department at [phone]. Medication Instructions (Do not stop your medications [...] would like to schedule therapy at a [facility] facility, please call [phone] ([phone]). Do not use lotions, creams, powders, perfume, make up, cologne or after-shaves day of surgery. Remove ALL jewelry including wedding rings, body piercings, hair extensions that contain metal, nail tajik, make-up, and contact lens. You may brush your teeth the morning of surgery, but do not swallow the water. Wear your dentures and partial plates to the hospital (no adhesive). Shower the night the before and morning of surgery with an antibacterial soap. Please be advised, [facility] has transitioned to a cashless payment [...] RIGHTS AND RESPONSIBILITIES As a patient at [facility], you have the right to: Receive medical care and be informed of who is taking care of you Be treated with dignity and respect Have a family member/telephone service representative of choice and your physician notified of your admission Receive information and actively participate in decisions about your care and treatment Refuse care, treatment and services Decide who may provide your support and speak for you Access roman catholic and spiritual services Participate in ethical issues [...] of hospital charges and payment methods Patient/patient telephone service representative responsibilities are to: Provide information about health status to facilitate care, treatment and services Follow the treatment, plan, keep appointments and speak up when you do not understand the plan Respect the rights of other patients and healthcare personnel Follow organizational rules and regulations that support quality care and a safe environment Fulfill financial obligations as promptly as possible [facility] 07-15-2024 Miscellaneous Notes Your surgery/procedure is scheduled at [facility] on 07-19-24 at 4:15 pm Arrival Time 2:15 pm [facility] Address: [address] [place] [address], [facility] in the Emergency Center Parking lot. Report to the front desk assistant in the Emergency/Surgery Registration lobby of the hospital. Notify your SURGEON if you develop any illness such as a cold, cough, fever, sore throat, vomiting or are hospitalized between now and your surgery. Please call Pre-Admission Clinic at [phone] if you have any questions prior to surgery. For questions the morning of surgery, call the Pre-op Department at [phone]. Medication Instructions (Do not stop your medications [...] would like to schedule therapy at a [facility] facility, please call [phone] ([phone]). Do not use lotions, creams, powders, perfume, make up, cologne or after-shaves day of surgery. Remove ALL jewelry including wedding rings, body piercings, hair extensions that contain metal, nail tajik, make-up, and contact lens. You may brush your teeth the morning of surgery, but do not swallow the water. Wear your dentures and partial plates to the hospital (no adhesive). Shower the night the before and morning of surgery with an antibacterial soap. Please be advised, [facility] has transitioned to a cashless payment system. [...] RIGHTS AND RESPONSIBILITIES As a patient at [facility], you have the right to: Receive medical care and be informed of who is taking care of you Be treated with dignity and respect Have a family member/telephone service representative of choice and your physician notified of your admission Receive information and actively participate in decisions about your care and treatment Refuse care, treatment and services Decide who may provide your support and speak for you Access roman catholic and spiritual services Participate in ethical issues [...] of hospital charges and payment methods Patient/patient telephone service representative responsibilities are to: Provide information about [...] promptly as possible documented in this encounter [facility] 07-14-2024 History of Present illness Narrative [address] [place] [address] Patient: Ike Flannery Date of : 1970 [...] metastasis. Her oncologist wants her to see [facility] Infectious Disease team that specializes in mycobacteria. She is undecided regarding this. She is under a high amount of stress with all of this complicated personal medical history as well as her brother recently committed suicide. Her mother has recently fallen at nondenominational and developed a CVA and now lives with both her and her partner. 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 Past Medical History: Diagnosis Date MIRNA (acute kidney injury) from vancomycin Breast cancer ([facility]) 2023 mammary carcinoma Breast wound left Deep vein thrombosis ([facility]) 09/18/2023 Left calf Dental disease one permanent [...] 02/26/2024 Performed by Jhon Gross MD at [facility] DEBRIDEMENT OF LEFT CEST WALL WOUND Left 05/04/2024 Performed by Jhon Gross MD at [facility] EXCISION LYMPH NODE AXILLARY DISSECTION Right 10/28/2023 Performed by Christy He MD at [facility] EXCISION OF REDUNDANT INFECTED LEFT CHEST WALL TISSUE WITH PRIMARY CLOSURE Left 03/21/2024 Performed by Jhon Gross MD at [facility] HYSTERECTOMY 2006 IMMEDIATE BREAST RECONSTRUCTION WITH TISSUE SUPERVISOR CURED MEATS PLACEMENT Bilateral 10/28/2023 Performed by Jhon Gross MD at [facility] INCISION AND DRAINAGE/DEBRIDEMENT OF LEFT BREAST WOUND Left 05/02/2024 Performed by Jhon Gross MD at [facility] INCISION DRAINAGE BREAST Left 11/27/2023 Performed by Jhon Gross MD at [facility] INCISION DRAINAGE BREAST (WASHOUT) Left 02/26/2024 Performed by Jhon Gross MD at [facility] INCISION DRAINAGE CHEST WALL INFECTION Left 06/13/2024 Performed by Jhon Gross MD at [facility] LIVER BIOPSY 07/11/2024 IR MAGNETIC SEED LOCALIZATION EXCISION/BIOPSY MASS BREAST (MAG SEED LOCALIZED TARGETED DISSECTION FOR RETRIEVAL OF PREVIOUSLY CLIPPED LYMPH NODE) Right 10/28/2023 Performed by Christy He MD at [facility] MASTECTOMY BREAST SIMPLE RISK REDUCING SKIN SPARING Left 10/28/2023 Performed by Christy He MD at [facility] MASTECTOMY BREAST SIMPLE SKIN SPARING Right 10/28/2023 Performed by Christy He MD at [facility] MENISCECTOMY Bilateral 2022 PORTACATH PLACEMENT Left left chest REMOVAL SUPERVISOR CURED MEATS TISSUE BREAST Left 11/27/2023 Performed by Jhon Gross MD at [facility] REMOVAL PORT A CATH Left 05/02/2024 Performed by Jhon Gross MD at [facility] RIGHT AXILLARY PROPHYLACTIC BYPASS LYMPHOVENOUS Right 10/28/2023 Performed by Jhon Gross MD at [facility] TONSILLECTOMY AND ADENOIDECTOMY Age 3 TUMOR [...] remain above goal of less than 130/80. RICHIE HANNA APRN-PLATE CONDITIONER AMEENA Garcia 07/18/24 1018 documented in this encounter [facility] 07-13-2024 Miscellaneous Notes SPOKE WITH PATIENT Pt aware of surgery on 07/19 at PAT phone call on 07/15 documented in this encounter [facility] 07-13-2024 Telephone encounter Note SPOKE WITH PATIENT Pt aware of surgery on 07/19 at PAT phone call on 07/15 [facility] 07-11-2024 Miscellaneous Notes Called patient. Let her know Dr. Gross's recommendations of debridement of left breast wound this week under MAC. She is agreeable. Discussed our medical office scheduler will reach out to her with date and time. documented in this encounter [facility] 07-11-2024 Telephone encounter Note Called patient. Let her know Dr. Gross's recommendations of debridement of left breast wound this week under MAC. She is agreeable. Discussed our medical office scheduler will reach out to her with date and time. [facility] Work Phone: 07-11-2024 History of Present illness Narrative Images from the original note were not included. [facility] [address] Office Jhon Gross MD, PhD AMEENA Kennedy PA-C Plastic Surgery Progress Note Reason for visit : post-op History of present illness: Ike Flannery is a 53 y.o. female with a history of right breast cancer status post bilateral skin sparing mastectomies (He) and tissue solar power installer reconstruction in 10/28/2023. Her postoperative course was complicated by an infected seroma of her left breast requiring operative washout and tissue solar power installer removal 11/27/23. Intraoperative cultures demonstrated growth of [...] liver lesion. She is awaiting consult at [facility] for IR guided biopsy as well as consult at the mycobacterium clinic at [facility]. She presents to the office today [...] Focused examination : Left chest wound present. Finzel granulation tissue present. Wound is 14 cm [...] does have follow-up scheduled on Thursday with [facility]. Continue with that scheduled appointment. Continue to monitor for any sign of infection. Follow up with our office next week for clinical check. Advised to call the office any questions or concerns in the interim. Please note that portions of this note were generated using voice recognition [employer] dictation software. Although every effort was made to ensure the accuracy of this automated construction ironworker, some errors in construction ironworker may have occurred. AMEENA Kennedy 07/11/24 1639 documented in this encounter [facility] 06-30-2024 Note Division of Infectio us Diseases [...] has been approved by IRB, FDA and [employer]. Consent signed and reviewed with vAi Tob[facility], patient and myself. 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 Clofazimine JOSÉ MIGUEL remains <= 0.5 Imipenem remains at JOSÉ MIGUEL of 16 No JOSÉ MIGUEL creep noted. There is an additional culture from 03/21/24 that is pending, has been sent to [facility] for further work up. Awaiting those [...] peak 30-35 Will need monitoring labs and pr specialist H/H has largely returned to normal with cessation of tidezolid. 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 Subjective History of Present Illness: She was [facility] from 05/02 to 05/13. I had discussed with patient's plastic surgeon Dr. Gross that I was concerned about her left chest port and her continuing wound from the left breast area. After her appointment with me patient had sent in pictures of the wound dehiscing. I forwarded these pictures and my concerns to Dr. Gross's office who promptly had patient admitted to [facility] for left Mediport removal and additional debridement. [...] I discussed with the ID pharmacist at [facility] tedizolid was discontinued and ceftaroline 600 mg [...] for a f (more content not included)... [facility] 06-30-2024 Note On 06/29/24, under th e advice of Dr. Herman Lui, I called [facility]. Spoke to animal laboratory helper working at [employer] [facility] bench and clarified that Fungal Culture of Tissue Left Breast (collected date 06/13/24) ordered by plastic surgeon Dr. Gross had not been sent yet to [facility] for additional testing since the same Mycobacterium abscessus speciation grew. Since imipenem/cilastatin and clofazimine MICs must be monitored and trended, I requested the [facility] laboratory to send the Fungal Culture to [facility], and the lab confirmed that they would do so. Anticipate that preliminary culture results (at least line probe assay findings, which may include if there are aminoglycoside drug resistance markers) may be available in a few weeks. Follow up will be needed as appropriate to obtain these preliminary results and then the finalized susceptibilities. Avi Tobar, PharmD, BCPS; Clinical Research Pharmacist [facility] 06-30-2024 Note [id number] Theresa Flannery 1970 F Date Provider Department Center 06/30/2024 [id number]-[id number] TOBAR [facility] INF Anthony Heal Family History Adopted: Yes Problem Relation Age of Onset Heart attack Father Family Status - Relation Status Age at Father [facility] 06-29-2024 History of Present illness Narrative [facility] [address] Office Jhon Gross MD, PhD Marisela Cuevas, RESTAURANT ASSISTANT MANAGER-ESPERANZA Smallwood PA-C Plastic Surgery Progress Note Reason for visit : post-op History of present illness: Ike Flannery is a 53 y.o. female with a history of right breast cancer status post bilateral skin sparing mastectomies (He) and tissue solar power installer reconstruction in 10/28/2023. Her postoperative course was complicated by an infected seroma of her left breast requiring operative washout and tissue solar power installer removal 11/27/23. Intraoperative cultures demonstrated growth of [...] liver lesion. She is awaiting consult at [facility] for IR guided biopsy as well as consult at the mycobacterium clinic at [facility]. She presents our office today for [...] cm and approximately 0.5 cm of depth. Finzel granulation tissue is present to wound bed. [...] Infectious Disease. She was scheduled follow-up with [facility] regarding her mycobacterium infection. Follow up next week for a clinical check. She was advised to call the office with any questions or concerns in the interim. - AMEENA Rand 06/29/24 4:21 PM Please note that portions of this note were generated using voice recognition Waterfall dictation software. Although every effort was made to ensure the accuracy of this automated construction ironworker, some errors in construction ironworker may have occurred. AMEENA Kennedy 06/29/24 1622 documented in this encounter [facility] 06-29-2024 History of Present illness Narrative She had her most recent PET scan which shows suspicion for persistent disease, she is having a biopsy next week. She also has an appointment with [facility] on the and the with Medical Oncology and Infectious Disease. We discussed following up after those visits to confirm a treatment plan. documented in this encounter [facility] 06-24-2024 Miscellaneous Notes Patient called she wanted to know if you had a chance to talk to dr gross yet if he was going to transfer her care to [facility] yet or not, she said if you had not she was planning to come in and see you on Thursday. If she forgot to mention it. Called patient back. LM for patient. We are still managing the patients wound and breast reconstruction. documented in this encounter [facility] 06-24-2024 Telephone encounter Note Patient called she wanted to know if you had a chance to talk to dr gross yet if he was going to transfer her care to [facility] yet or not, she said if you had not she was planning to come in and see you on Thursday. If she forgot to mention it. [facility] 06-24-2024 Telephone encounter Note Called patient back. LM for patient. We are still managing the patients wound and breast reconstruction. [facility] Work Phone: 06-22-2024 History of Present illness Narrative Images from the original note were not included. [facility] [address] Office Jhon Gross MD, PhD AMEENA Kennedy PA-C Plastic Surgery Progress Note Reason for visit : post-op History of present illness: Ike Flannery is a 53 y.o. female with a history of right breast cancer status post bilateral skin sparing mastectomies (He) and tissue solar power installer reconstruction in 10/28/2023. Her postoperative course was complicated by an infected seroma of her left breast requiring operative washout and tissue solar power installer removal 11/27/23. Intraoperative cultures demonstrated growth of [...] liver lesion. She is awaiting consult at [facility] for IR guided biopsy as well as consult at the mycobacterium clinic at [facility]. She presents to our office today [...] Disease. She does have consultation scheduled with [facility] bio bacteria clinic scheduled. She also has IR biopsy of her liver lesion scheduled. Follow up next week for wound check. She was advised to call the office any questions or concerns in the interim. - Marisela Cuevas APRN-ESPERANZA 06/22/24 4:36 PM Please note that portions of this note were generated using voice recognition M*Modal dictation software. Although every effort was made to ensure the accuracy of this automated construction ironworker, some errors in construction ironworker may have occurred. AMEENA Kennedy 06/22/24 1636 documented in this encounter [facility] 06-20-2024 Miscellaneous Notes Positive AFB Fungal Culture- Left Breast From June 13, 2024 documented in this encounter [facility] 06-20-2024 Telephone encounter Note Positive AFB Fungal Culture- Left Breast From June 13, 2024 [facility] 06-20-2024 Note HNO ID: [id number] Author: KESHA APPLE MD Service: ? Author Type: Physician Type: Progress Notes Filed: 06/20/2024 16:05 Note Text: Reason for consult: breast infection Referring provider: TATI King, no contact phone number Case reviewed: 53-year-old woman with: # hypertension # chronic anemia # left lower extremity DVT on Eliquis # right breast cancer s/p bilateral skin-sparing mastectomies and tissue solar power installer reconstruction in 10/2023 (Dr. Jhon Gross), complicated by infected seroma on the left breast s/p tissue solar power installer explant 11/27/23, OR cx w/ M abscessus, follows up with Dr. Carlene Noguear, tx'ed w/ Amikacin 750 mg MWF, Imipenem [...] appointment. Kesha Apple MD June 20, 2024 [facility] 06-20-2024 History of Present illness Narrative Reason for consult: breast infection Referring provider: TATI King, no contact phone number Case reviewed: 53-year-old woman with: # hypertension # chronic anemia # left lower extremity DVT on Eliquis # right breast cancer s/p bilateral skin-sparing mastectomies and tissue solar power installer reconstruction in 10/2023 (Dr. Jhon Gross), complicated by infected seroma on the left breast s/p tissue solar power installer explant 11/27/23, OR cx w/ M abscessus, follows up with Dr. Carlene Noguear, tx'ed w/ Amikacin 750 mg MWF, Imipenem [...] June 20, 2024 documented in this encounter [facility] 06-16-2024 Miscellaneous Notes Please complete TCM call. Thank you Hospital Discharge Follow Up Call (This is not a billable TCM) Transition of Care (*required) *Additional Questions/Concerns Requiring PCP Follow-Up: - RICHIE HANNA APRN-ESPERANZA, needs Hospital Follow Up visit scheduled on [...] and Other; Plastics *Name of Discharging Facility: [facility], admitted 06/10/24 Date of Facility Discharge: 06/15/24 Date of Interactive Contact and Name of Tear Down Man: 06/16/24 [id number] spoke with patient *Medication Review Completed: No [...] none *Follow Up Appointments with Providers: Primary: RICHIE HANNA, AMEENA, needs Hospital Follow Up visit scheduled on or before 06/28/24, patient may ask for a telehealth visit Specialty: 06/29/24 [facility] Oncology, Dr. Sepulveda Specialty: 06/20/24 [facility] Infectious Disease:Dr. Moody Specialty: 07/06/24 [facility]; IR percutaneous biopsy liver Specialty: [facility]; referral placed TBD Specialty: 07/12/24 [facility], Oncology Specialty: Plastic surgery, hJon Gross MD [phone] TBD Review of Pending Lab/Diagnostic Tests and Plan for Completion: none Assessment and Support of Treatment Regimen Adherence and Medication Management: Tire Debeader spoke with patient for call. Patient talkative and states she is doing okay. Voices she likes all of her present medical providers in the [facility] but understands why she needs to schedule care at the [facility] so all providers are in one health system/team. She reports she has an appointment on 07/12/24 with oncology at the [facility]. She has not heard from [facility] Infectious disease in response to the referral placed during this last hospital visit. Tire Debeader educated patient on the need to schedule a PCP hospital follow up visit. She voices she will see when all the other appointments are scheduled, then decide. Tire Debeader discussed possible telehealth visit with PCP. Patient [...] takes oxycodone. Relief to 2-3 is obtained. Arlyn is in the home. Reports PICC line is in place and she is managing it and IV antibiotics well. No redness or edema at PICC line site, flushes well. Tire Debeader reviewed new medications. She has no questions on other meds. She reports no issues with constipation, diarrhea or urination. Eating and drinking without issues No N/V. Education Provided by ACN to Support Self-Management, Independent Living and ADLs: Patient lives with gemma. DME-none ADL's-independent Transportation-self if not taking narcotics SDOH: denies needs Tire Debeader instructed patient to contact her PCP office for new, worsening or unresolved symptoms. Tire Debeader instructed patient to call 911 for any chest pain or difficulty breathing. Communication with Home Health Agencies and Other Services Utilized/Needed by the Patient: none documented in this encounter [facility] 06-16-2024 Telephone encounter Note Please complete TCM call. Thank you [facility] 06-16-2024 Telephone encounter Note Hospital Discharge Follow Up Call (This is not a billable TCM) Transition of Care (*required) *Additional Questions/Concerns Requiring PCP Follow-Up: - RICHIE HANNA APRN-ESPERANZA, needs Hospital Follow Up visit scheduled on [...] and Other; Plastics *Name of Discharging Facility: [facility], admitted 06/10/24 Date of Facility Discharge: 06/15/24 Date of Interactive Contact and Name of Tear Down Man: 06/16/24 1269 spoke with patient *Medication Review Completed: No [...] ask for a telehealth visit Specialty: 06/29/24 [facility] Expert Oncology, Dr. Sepulveda Specialty: 06/20/24 [facility] Infectious Disease:Dr. Moody Specialty: 07/06/24 [facility]; IR percutaneous biopsy liver Specialty: [facility]; referral placed TBD Specialty: 07/12/24 [facility], Oncology Specialty: Plastic surgery, Jhon Gross MD [phone] TBD Review of Pending Lab/Diagnostic Tests and Plan for Completion: none Assessment and Support of Treatment Regimen Adherence and Medication Management: Tire Debeader spoke with patient for call. Patient talkative and states she is doing okay. Voices she likes all of her present medical providers in the [facility] but understands why she needs to schedule care at the [facility] so all providers are in one health system/team. She reports she has an appointment on 07/12/24 with oncology at the [facility]. She has not heard from [facility] Infectious disease in response to the referral placed during this last hospital visit. Tire Debeader educated patient on the need to schedule a PCP hospital follow up visit. She voices she will see when all the other appointments are scheduled, then decide. Tire Debeader discussed possible telehealth visit with PCP. Patient [...] edema at PICC line site, flushes well. Tire Debeader reviewed new medications. She has no questions on other meds. She reports no issues with constipation, diarrhea or urination. Eating and drinking without issues No N/V. Education Provided by ACN to Support Self-Management, Independent Living and ADLs: Patient lives with fiance. DME-none ADL's-independent Transportation-self if not taking narcotics SDOH: denies needs Tire Debeader instructed patient to contact her PCP office for new, worsening or unresolved symptoms. Tire Debeader instructed patient to call 911 for any chest pain or difficulty breathing. Communication with Home Health Agencies and Other Services Utilized/Needed by the Patient: none [facility] 06-10-2024 Miscellaneous Notes Contract: [address] Gross Left Breast Problem redness, hot to touch tender Call was connected to Dr Gross cell documented in this encounter [facility] 06-10-2024 Telephone encounter Note Contract: [address] Gross Left Breast Problem redness, hot to touch tender [facility] 06-10-2024 Telephone encounter Note Call was connected to Dr Gross cell [facility] 06-08-2024 History of Present illness Narrative Images from the original note were not included. [facility] [address] Office Jhon Gross MD, PhD Marisela Cuevas, RESTAURANT ASSISTANT MANAGER-PLATE CONDITIONER Shereen Smallwood PA-C Plastic Surgery Progress Note Reason for visit : post-op History of present illness: Ike Flannery is a 53 y.o. female with a history of right breast cancer status post bilateral skin sparing mastectomies (Dr. He) and tissue solar power installer reconstruction (10/28/2023). Her postoperative course was complicated by an infected seroma of her left breast requiring operative washout and tissue solar power installer removal on 11/27/23. Intraoperative cultures demonstrated growth [...] was advised to contact ID team at [facility] to notify them and seek guidance regarding [...] plan of care. INÉS BYERS PA-C 06/13/24 1724 documented in this encounter [facility] 06-08-2024 History of Present illness Narrative Called [...] as reviewing images. documented in this encounter [facility] 06-03-2024 Nuclear medicine Diagnostic study note [facility] [place] [address] Nuclear Medicine Report Signed Patient: Ike Flannery MR#: [id number] : 1970 Acct:[id number] Age/Sex: 53 / F ADM Date: 5 Loc: Room: Type: [facility] Attending Dr: Aarti Hope MD Copies to: MD Fortino Mistry MD~ Ordering Provider: Aarti Hope MD Date of [...] Fortino Tate M.D.06/03/2024 12:40 PM Dictation Location: [place] [address] Transcribed By: [facility] 06/03/24 1240 Dictated By: Fortino Tate MD 06/03/24 1216 Signed By: 06/03/24 1240 [facility] Work Phone: 06-01-2024 Miscellaneous Notes Called patient to let her know I spoke with Shereen regarding her previous wound care plans. Given how well the wound is healing and that it is almost superficial in depth we will continue with BID wet to dry dressing changes. Patient verbalized an understanding. documented in this encounter [facility] 06-01-2024 Telephone encounter Note Called patient to let her know I spoke with Shereen regarding her previous wound care plans. Given how well the wound is healing and that it is almost superficial in depth we will continue with BID wet to dry dressing changes. Patient verbalized an understanding. [facility] Work Phone: 06-01-2024 Note Allergy list updated based on desensitization done on 06/01/24. [facility] 06-01-2024 Note Patient states she h as [...] to 3 weeks. Will let pharmacy know [facility] 06-01-2024 History of Present illness Narrative Reason [...] MASTECTOMY Bilateral 10/2023 TONSILLECTOMY TOTAL ABDOMINAL HYSTERECTOMY 2006 REVIEW OF [...] nursing note reviewed. Exam conducted with a route sales specialist present. Vitals: Estimated body mass index is [...] Evan Thompson DO documented in this encounter [facility] 06-01-2024 History of Present illness [facility]ative [facility] [address] Office Jhon Gross MD, PhD Marisela Cuevas, RESTAURANT ASSISTANT MANAGER-PLATE CONDITIONER Shereen Smallwood PA-C Plastic Surgery Progress Note Reason for visit : post-op History of present illness: Ike Flannery is a 53 y.o. female with a history of ght breast cancer status post bilateral skin sparing mastectomies (He) and tissue solar power installer reconstruction in 10/28/2023. Her postoperative course was complicated by an infected seroma of her left breast requiring operative washout and tissue solar power installer removal 11/27/23. Intraoperative cultures demonstrated growth of [...] have a wound VAC while admitted to [facility]. She states that her insurance declined wound VAC applications. We can attempt to obtain insurance approval for [facility] wound VAC. follow up next week for clinical check. She was advised to call the office any questions or concerns in the interim. - AMEENA Rand 06/01/24 10:45 AM Please note that portions of this note were generated using voice recognition Waterfall dictation software. Although every effort was made to ensure the accuracy of this automated construction ironworker, some errors in construction ironworker may have occurred. AMEENA Kennedy 06/01/24 1046 documented in this encounter [facility] 05-31-2024 Note Subjective Patient ID: Tia Flannery [...] put her on omadacycline. Doxycycline allergy Tia Eason Widchen is here for evaluation of Doxycycline [...] For all tetracyclines, most hypersensitivity reactions are [id number]. Nonetheless, IgE-mediated reactions do occur, and anaphylaxis [...] negative skin test (more content not included)... [facility] 05-30-2024 Note Microbiology PROCEDURE: Blood Culture Charcoal [R1] SOURCE: Blood BODY SITE: Chest COLLECTED DATE/TIME: 05/22/2024 20:14 EDT RECEIVED DATE/TIME: 05/22/2024 20:36 EDT START DATE/TIME: 05/22/2024 20:37 EDT FREE TEXT SOURCE: VANESSA Deleon PA-C, Benji Heard. Pancho CONTE, Benji Heard. FINAL REPORTS Final Report [] Verified Date/Time: 05/29/2024 21:00 EDT No growth at 7 days. Performing Locations R1: This test was performed at: [facility], [address] [place] [address], [facility] , , [facility] Comment on above: Performed By: #### 1 [id number] #### [facility] [address] [place] [place] [address] 05-30-2024 Note Microbiology PROCEDURE: Blood Culture Charcoal [R1] SOURCE: Blood BODY SITE: Hand L COLLECTED DATE/TIME: 05/22/2024 21:00 EDT RECEIVED DATE/TIME: 05/22/2024 21:17 EDT START DATE/TIME: 05/22/2024 21:17 EDT FREE TEXT SOURCE: Benji Deleon PA-C. Benji Deleon PA-C. FINAL REPORTS Final Report [] Verified Date/Time: 05/30/2024 00:00 EDT No growth at 7 days. Performing Locations R1: This [facility] performed at: [facility], [address] [place] [address], [id number] [place] [address], [facility] Comment on above: Performed By: #### 1 [id number] #### [facility] [address] [place] [place] [address] 05-29-2024 Note Microbiology PROCEDURE: Blood Culture Charcoal [R1] SOURCE: Blood BODY SITE: Chest COLLECTED DATE/TIME: 05/22/2024 20:14 EDT RECEIVED DATE/TIME: 05/22/2024 20:36 EDT START DATE/TIME: 05/22/2024 20:37 EDT FREE TEXT SOURCE: Benji Deleon PA-C, PA-C, Levi J. FINAL REPORTS Final Report [] Verified Date/Time: 05/29/2024 21:00 EDT No growth at 7 days. Performing Locations R1: This test was performed at: [facility], [address] [place] [address], [address] [place] [address], [facility] Comment on above: Performed By: #### 1 [id number] #### [facility] [address] [place] [place] [address] 05-27-2024 Note 05/27/24 1627 Admission Assessment Questions Verify insurance with patient Yes ([facility] Medicaid) Do you understand medical disease or [...] Status Interested Does the patient have a egg caser assigned to them through their insurance? No [...] discharge in progress: return Home w/ gemma. [employer] [place] to be delivered to Home, W->D dressing changes until then. [employer] to provide Amikacin 3x/wk+Imipenem-Cilastatin q12 hr (pt to administer). Pt to follow-up @ [facility] for wound care & application of Wound Vac after delivered. Pt to follow-up with [facility] on June 01 @ 9am. [facility] 05-27-2024 Note Hospital Medicine Discharge Summary Final [...] ceftaroline. She follows up with Dr. Lui ([place] ID). Patient presented to the emergency department [...] Center 06/08/2024 8:40 AM Juhi Atwood MD [facility] LIBIA Powell 06/22/2024 2:30 PM Jossy Moody MD [facility] INF Anthony Heal Your medication list START [...] 7-7-1.5 gram powder in packet Generic drug: fexqnorw-gjexybgzu-sjgajdj HMB magnesium oxide 400 mg tablet Commonly [...] Medications These medications were sent to [facility] [address] [place] [address] [address] [facility] [place] [address], [facility] [address] ferrous sulfate 325 (65 Fe) MG tablet Ike Weber is allergic to ceftaroline fosamil, meperidine, adhesive tape-silicones, daptomycin, tigecycline, vancomycin, and doxycycline. Disposition: Home-Health Care [facility] (06) Discharge Condition: Stable Code Status: Full Code Diagnostic Results (more content not included)... [facility] 05-27-2024 Note Patient name: Samantha Flannery Date of : 1970 Admission date: 05/23/2024 ANTIBIOTIC ORDERS Infectious Diseases Diagnosis for antibiotic management: NTM Name/dosing/frequency of antibiotic: imipenem, amikacin, cloafazime Continue antibiotics through: for 6 months LABORATORY ORDERS: as per previous outpatient orders CONTACT NUMBERS For all questions call: [phone] IV ACCESS: PICC OK to draw blood [...] has been explained to the patient: Yes [facility] 05-27-2024 Note The patient is a due for a refill. PA renewal needed. Submit urgently. The medication has already been ordered in. Alexus Richey CPhT [facility] 11/01/24 4:21 PM [facility] 05-27-2024 Note PA states cancelled in CMMs. However, the claim pays for $0. Deborah Ramires, SukiD, BCACP 06/27/24 2:32 PM [facility] [phone] [facility] 05-27-2024 Note PA was only approved for [...] will be here for an apt. Deborah Ramires, SukiD, BCACP 06/24/24 12:48 PM [facility] [phone] [facility] 05-27-2024 Note We received a new pr escription for Nuzyra and is requiring a PA. Kam Alfaro, [facility] 05/27/24 12:39 PM [facility] 05-27-2024 Note Refill call complete d. Nikki Galarza, [facility] 08/31/24 11:40 AM [facility] 05-27-2024 Note PA Approved through 06/25/2024. $0 copay. Called Avi Theresa ([phone]) to notify her of PA approval. Andree Ryan, SukiD Outpatient Clinical Pharmacist [facility] [phone] 05/30/24 8:36 AM [facility] 05-27-2024 Note Specialty Pharmacy N ote: Yonatan [...] tools were consulted for this evaluation: [x] Optherion Drug Information [] FIXO Clinical Resource [] Clinical Pharmacology [x] FDA [...] try to call. Submitted urgent PA in M. When PA results call Avi Tobar ([phone]) with result. Opal Leo, PharmD 05/27/24 1:40 PM [facility] 05-27-2024 Note Infectious Diseases - Inpatient daily [...] strength and sen (more content not included)... [facility] 05-27-2024 Note Pharmacy Dosing Serv ice - [...] outpatient at patient's convenience -Check BUN/SCr daily [facility] 05-27-2024 Note Recevied emailed wou nd vac form from [facility] at 5:54pm yesterday. Submitting to [employer] for Ready vac. DC orders placed yesterday evening. Await wound vac insurance approval. Submitted for [employer] ready vac. Sent referral to [facility], pt needs more double lumen picc line extentions. Await ready vac approval. Uploaded documents to [employer]. Await insurance approval. Phoned [employer] liaison/Anabela to check on [employer] ready vac approval, await call back with update. Sent scripts to [employer] to arrange a delivery time with pt. Anabela will call back in 20-30 minutes with an update, [employer] rep is now reviewing vac order. Pt's insurance requires 30 days consecutive dressing changes before authorizing wound vac. Wound was surgically created on 05/04/2024. Phoned Shereen/TATI @ plastic surgery clinic and she wants pt to continue wet to dry twice a day and she will see pt on Thursday for her appointment. Phoned Anabela at [facility] and changed vac order to home delivery when insurance approved. Updated pt's RN Itzel, pt due for dressing change today. Discussed DC IV ATB with ID and [facility] is delivering to pt's home at 5pm. [facility] 05-26-2024 Note -Continue with [facility] 05-26-2024 Note - Currently on amika jarvis, clofazimine, primaxin. discussed with ID, we will be discontinuing ceftaroline due to the reaction that she is experiencing. plan to arrange for follow-up with allergy given her history of physical cyclin allergy and her need for the doxycycline, She is scheduled 05/31/24. [facility] 05-26-2024 Note -Baseline, continue monitoring. [facility] 05-26-2024 Note -Left side - Arranging for wound VAC as an outpatient. [facility] 05-26-2024 Note -Status post mastect donis, she follow-up with oncology as an outpatient. [facility] 05-26-2024 Note -Monitor and replace accordingly [facility] 05-26-2024 Note -Controlled, continue monitoring . [facility] 05-26-2024 Note -No signs of overt b leeding. Continue monitoring. [facility] 05-26-2024 Note - Antibiotics as above. [facility] 05-26-2024 Note Hospital Medicine Daily Progress Note - 05/26/2024 4:40 PM; Room: [address] [place] [address] Admission: 05/23/2024 4:20 PM; Length of stay: 3 days THE HOSPITALIST TEAM PREFERS TO USE [employer] FOR NON-URGENT COMMUNICATION 7AM-7PM. IF I DO NOT RESPOND WITHIN 20 MINUTES OR URGENT MATTERS, PLEASE CALL THROUGH THE [facility] CHALKER. FROM 7PM-7AM, PLEASE PAGE [phone](COVR). Code Status: Full Code Barriers to Discharge: wound VAC arrangement Expected Discharge Date: in a.m. Discharge Destination: home Overview Patient is seen for evaluation and management of chest wall infection. 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 Patient presented to [facility] ED due to fever of 102. Subjective [...] , FREET4 , CORTISOL , FEV1 , IYO3CNF , DLCO , RVSP , HDL , LDL No results found for: [id number] , IRON , TIBC , C3 , [...] to hepatic steatosi (more content not included)... [facility] 05-26-2024 Note 05/26/24 1351 Referral Data Referral Source wallboard worker Referral Reason Follow up;Information Patient Information Primary Caregiver Self Activities of Daily Living Assistive Device Not applicable Ambulation Independent Dressing Independent Feeding Independent Behavior Oriented Communication Talks;Understands speaking;Understands Egyptian Discharge Planning Living Arrangements Spouse/significant other;Parent (with fiance and elderly mother) Support Systems Spouse/significant other;Parent Type of Residence Private residence Post Acute Services Other (Comment) (needs wound vac & outpt dressing changes[facility]) Patient's goal for discharge Home with wound vac and outpt dressing changes Does the patient need discharge transport arranged? No (Fiance) Met with pt to follow up with DC planning. Pt reported she is going to the [facility] for twice a week dressing changes. Phoned Carla DAVENPORT at [facility] [phone], left message. Spoke with Carla, she will send wound vac form via email. Will follow with [facility] express ready vac referral for insurance auth. Carla confirmed pt will follow with twice a week dressing changes at [facility] for wound vac upon DC. And once a week visits to [facility] clinic. [facility] 05-26-2024 Note Infectious Diseases - Inpatient daily [...] and Clofazimine. We have reached out to [facility] in consultation for treatment of her mycobacterium. [...] 0510 05/25/24 0634 05/24/24 0625 05/23/24 1632 WBC AUTO 10*3/uL 2.08* 2.68* 2.10* [...] mmol/L 110* 105 106 102 CO2 mmol/L BUN mg/dL 7 8 9 9 CREATININE mg/dL 0.56* 0.69 0.60 0.73 GLUCOSE mg/dL 79 79 92 103* CALCIUM mg/dL 8.1* 8.0* 8.1* 8.7 ALK PHOS U/L -- -- -- 70 ALT U/L -- -- -- 26 AST U/L -- -- -- 87* Results from last 7 days L (more content not included)... [facility] 05-26-2024 Note Pharmacy Dosing Serv ice - [...] (random with AM labs) -Check BUN/SCr daily [facility] 05-25-2024 Note -Source is likely th e chest wall wound. 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 -Infectious disease on board, currently on amikacin, ceftaroline, imipenem-cilastatin -Vascular wound care consulted [facility] 05-25-2024 Note -Monitor and replace accordingly [facility] 05-25-2024 Note -Status post mastect donis, she follow-up with oncology as an outpatient. [facility] 05-25-2024 Note -Continue with [facility] 05-25-2024 Note -Controlled, continue monitoring . [facility] 05-25-2024 Note -Unclear source of i nfection. 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 [facility] 05-25-2024 Note -Baseline, continue monitoring. [facility] 05-25-2024 Note -Left side, wound care consulted [facility] 05-25-2024 Note -No signs of overt b leeding. Continue monitoring. [facility] 05-25-2024 Note Hospital Medicine Daily Progress Note - 05/25/2024 12:36 PM; Room: [facility]- Admission: 05/23/2024 4:20 PM; Length of stay: 2 days THE HOSPITALIST TEAM PREFERS TO USE [employer] FOR NON-URGENT COMMUNICATION 7AM-7PM. IF I DO NOT RESPOND WITHIN 20 MINUTES OR URGENT MATTERS, PLEASE CALL THROUGH THE [facility]. FROM 7PM-7AM, PLEASE PAGE [phone](COVR). Code Status: Full Code Barriers to Discharge: Sepsis rule out, evaluation by infectious disease Expected Discharge Date: 2 to 3 days Discharge Destination: home Overview Patient is seen for evaluation and management of chest wall infection. 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 Patient presented to [facility] ED due to fever of 102. Subjective [...] Plan SIRS (systemic inflammatory response syndrome) (CMS/HCC) -Unclear source of infection. 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 Iron deficiency anemia -No signs of overt bleeding. Continue monitoring. Open wound of chest wall -Left side, wound care consulted Pulmonary hypertension (CMS/HCC) -Baseline, continue monitoring. Mycobacterium [...] days Lab Units 05/25/24 0634 05/24/24 0625 WBC AUTO 10*3/uL 2.68* 2.10* HEMOGLOBIN g/dL [...] , FREET4 , CORTISOL , FEV1 , [id number] , DLCO , RVSP , HDL , LDL No results found for: [id number] , IRON , TIBC , C3 , [...] duct measures approxi (more content not included)... [facility] 05-25-2024 Note Infectious Diseases - Inpatient daily [...] for component: TOXI (more content not included)... [facility] 05-25-2024 Note Infectious Diseases - Inpatient daily [...] mmol/L 105 106 102 CO2 mmol/L 26 25 BUN mg/dL 8 9 9 [...] UTP Infectious Diseases Please contact us via [employer] during business hours. If no response in 15 min, call / page through the carton filling machine operator Jossy Moody MD [facility] Infectious Diseases [phone] [facility] 05-24-2024 Note [facility] Vascular Surgery/Wound Care CONSULTATION Reason for Consult: left breast wound Subjective History of Present Illness: Ike Eason Widchen is a 53 y.o. female with a [...] did have plans to go to both [facility] and [facility] for wound VAC changes. She does have [...] Ada Jacques MD, 2 mg at 05/23/24 2349 amikacin intermittent dosing placeholder, 1 each, Does not apply, RX Placeholder, Alyce Soria, ESPERANZA apixaban (Eliquis) tablet 5 mg, 5 mg, oral, BID, Grace Vivar MD, 5 mg at 05/24/24 1256 edsiuhtzvt-ggsmlzjcjswjm-eard 50-325-40 mg per tablet 1 tablet, 1 [...] 400 mg, 400 mg, oral, Daily, Ada Jacques MD, 400 mg at 05/24/24 0808 melatonin [...] % infusion, 100 mL/hr, intravenous, Continuous, Ada Jacqeus MD, Last Rate: 100 mL/hr at 05/24/24 [...] of education: Not (more content not included)... [facility] 05-24-2024 Note Patient's Own Invest igational Medication This patient is continuing their home investigational medication during this admission. This medication is being used for treatment (expanded access program or compassionate use ) and is NOT research or a clinical trial. Information about https://www.fda.gov/news-events/e xpanded-access/yrcrcush-dwfsmp-wl formation-phys icians The patient's treating physicians (Dr. [...] (Mycobacterium abscessus complex) No Assigned Protocol Number. [place] (Sponsor-Pyrometer Operator): Dr. Herman Lui. *Dr. Jossy Moody is primary contact as of [id number].* Required Current Institutional Review Board Approval: YES, IRB of Record: [facility] Biomedical IRB Required Current FDA Approval: YES, Single Patient Investigational New Drug Application, IND #[id number] Required Current IRB Approved Informed Consent Form Signed and available in medical records: YES, in Tool Tender Medication Name/Strength/Dosage Form: Clofazimine 50 mg capsule Prescribed label instructions: Take 2 capsules (tpcp=702 mg) by mouth once a day with a high fat meal. Capsules are to be swallowed whole. Storage Conditions: Controlled Room Temperature Dispensing pharmacy: [facility] Investigational Drug Services (Clinical Research Pharmacist) Dispense [...] Avi Tobar PharmD, BCPS at office phone [phone] (Thursday through Thursday, 07:30 AM to 4 PM). Outside of these hours, please contact the inpatient pharmacy at [phone]. [facility] 05-24-2024 Note Pharmacy Dosing Serv ice - [...] 05/25/24 with AM labs -Check BUN/SCr daily [facility] 05-24-2024 Note -Controlled, continue monitoring . [facility] 05-24-2024 [facility]Monitor and replace accordingly [facility] 05-24-2024 Note -Management as above. [facility] 05-24-2024 Note -Baseline, continue monitoring. [facility] 05-24-2024 Note -No signs of overt b leeding. Continue monitoring. [facility] 05-24-2024 Note -Status post mastect donis, she follow-up with oncology as an outpatient. [facility] 05-24-2024 Note -Left side, management as above. [facility] 05-24-2024 Note Hospital Medicine Daily Progress Note - 05/24/2024 1:12 PM; Room: [address] [place] [address] Admission: 05/23/2024 4:20 PM; Length of stay: 1 days THE HOSPITALIST TEAM PREFERS TO USE [employer] FOR NON-URGENT COMMUNICATION 7AM-7PM. IF I DO NOT RESPOND WITHIN 20 MINUTES OR URGENT MATTERS, PLEASE CALL THROUGH THE ANTISQUEAK CHALKER. FROM 7PM-7AM, PLEASE PAGE [phone](COVR). Code Status: Full Code Barriers to Discharge: Sepsis rule out, evaluation by infectious disease Expected Discharge Date: 2 to 3 days Discharge Destination: home Overview Patient is seen for evaluation and management of chest wall infection. 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 Patient presented to [facility] ED due to fever of 102. Subjective [...] vein thrombosis (DVT) of right lower extremity ([facility]) -Continue with Eliquis VTE Prophylaxis: Eliquis Scheduled [...] , FREET4 , CORTISOL , FEV1 , QWJ9ERN , DLCO , RVSP , HDL , LDL No results found for: [id number] , IRON , TIBC , C3 , [...] No definite fo (more content not included)... [facility] 05-24-2024 Note Adult Nutrition Asse ssment: Name: [...] 0 Lab Value Date/Time BUN 9 05/24/2024 06 CREATININE 0.60 05/24/2024624 NA 138 05/24/2024624 K 3.0 (L) 05/24/2024624 MG 1.6 (L) 05/24/2024624 HGB 8.3 (L) 05/24/2024624 WBC 2.10 (L) 05/24/2024624 Allergies: Allergies Allergen Reactions Meperidine Swelling, Unknown [...] chest wall infected seroma. Washout and tissue solar power installer removal 11/27/23. I&D on 02/26/24 and 03/21/24. [...] ideal body weight (70.5 kg) Calorie needs: 1683-7100 kcals/day based on Equation: 25-30 kcal/kg Protein [...] per the clinica (more content not included)... [facility] 05-23-2024 Note Pharmacy Dosing Serv ice - [...] BUN/SCr daily Thank you, Jessica Morse, PharmD [facility] 05-23-2024 Note ID consult Follow-up on ESR [facility] 05-23-2024 Note Ferrous sulfate 1 tab twice linda y [facility] 05-23-2024 Note Normal saline at 100 mL/hour for next 10 hours ID consult Blood cultures, infectious workup is pending [facility] 05-23-2024 Note Hospital Medicine History and Physical 05/23/2024 10:14 PM THE HOSPITALIST TEAM PREFERS TO USE [employer] FOR NON-URGENT COMMUNICATION 7AM-7PM. IF I DO NOT RESPOND WITHIN 20 MINUTES OR URGENT MATTERS, PLEASE CALL THROUGH THE ANTISQUEAK CHALKER. FROM 7PM-7AM, PLEASE PAGE [phone](COVR). Chief Complaint Chief Complaint Patient presents with [...] days. She states that she went to [facility] yesterday and got a full workup done [...] in the morning. Yesterday, ER physician from [facility] called infectious disease specialist at [facility] and they recommended patient to be transferred to [place] but patient opted out to go home. [...] held Plan: Patient will be admitted to [facility] telemetry bed. Liver ultrasound, hepatitis panel Protonix [...] this hospital stay by a member of [facility] Medicine. Past Medical History Past Medical History: Diagnosis Date Cancer (CMS/HCC) Hypertension Past Surgical History Past Surgical History: Procedure Laterality Date ANTERIOR CRUCIATE LIGAMENT REPAIR HYSTERECTOMY Social History (more content not included)... [facility] 05-23-2024 Miscellaneous Notes Tire Debeader called this patient to see if she got some pre op labs done she is scheduled for surgery 05/26/24, patient stated had left breast surgery on 05/02/24 and has had some post op complications was in the hospital 11 days, had 2 debridements, bone marrow bx, pt safe and vault mechanic Dr. Hope said he sent Dr. Sepulveda [...] PET scan, pt has office contact information, handbook writer cx'd surgery. [facility] Telephone encounter Note Tire Debeader called this patient to see if she got some pre op labs done she is scheduled for surgery 05/26/24, patient stated had left breast surgery on 05/02/24 and has had some post op complications was in the hospital 11 days, had 2 debridements, bone marrow bx, pt safe and vault mechanic Dr. Hope said he sent Dr. Sepulveda [...] PET scan, pt has office contact information, handbook writer feng surgery. [facility] 05-22-2024 Hospital Discharge instructions Follow Up Care 05/22/2024 18:55:47 With:HERMAN LUI Address: [address] [place] [address] When:05/25/2024 Comments:Call Dr for diagnosis based follow up With:RANDY CALLE Address: [address] [place] [address] Business (1) When:Within 3 Day(s) [facility] 05-22-2024 Evaluation + Plan note Extrac tena [...] Acid PT & PTT Rapid COVID Antigen ([facility]) Respiratory Panel by PCR Troponin UA with Cult Rflx XR Chest Single View Diagnostic Tests Pending * Blood Culture Charcoal 05/22/24 * Blood Culture Charcoal 05/22/24 [facility] 03-21-2025 NoteDivision of Infectious Diseases Follow up Note [...] Norvartis. Consent signed and reviewed with Avi Tobar, [facility], patient and myself. 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 Clofazimine JOSÉ MIGUEL remains <= 0.5 Imipenem remains at JOSÉ MIGUEL of 16 No JOSÉ MIGUEL creep noted. There is an additional culture from 03/21/24 that is pending, has been sent to [facility] for further work up. Awaiting those [...] peak 30-35 Will need monitoring labs and pr specialist H/H if it remains persistently low may have to consider discontinuing tidezolid. Given the cessation of tidezolid have moved to a dual beta-lactam approach, would continue with amikacin and PO clofazimine as well. Discussed plans for allergy referral at [facility] to discuss omadacycline desensitization and allergy testing. At some point will need her towards an oral regimen, and limit her Ivs Subjective History of Present Illness: Since last visit patient was admitted to [facility] from 05/02 to 05/13. I had discussed with patient's plastic surgeon Dr. Gross that I was concerned about her left chest port and her continuing wound from the left breast area. After her appointment with me patient had sent in pictures of the wound dehiscing. I forwarded these pictures and my concerns to Dr. Gross's office who promptly had patient admitted to [facility] for left Mediport removal and additional debridement. [...] I discussed with the ID pharmacist at [facility] tedizolid was discontinued and ceftaroline 600 mg [...] size was 21 x (more content not included)...[facility] 05-18-2024 History of Present illness Narrative* Shereen Smallwood PA-C - 05/18/2024 9:00 AM EDT [facility] [address] Office Jhon Gross MD, PhD Marisela Cuevas, RESTAURANT ASSISTANT MANAGER-PLATE CONDITIONER Shereen Smallwood PA-C Plastic Surgery Progress Note Reason for visit : post-op History of present illness: Ike Flannery is a 53 y.o. female with a history of right breastcancer status post bilateral skin sparing mastectomies (He) and tissue solar power installer reconstruction in 10/28/2023. Her postoperative course was complicated by an infected seroma of her left breast requiring operative washout and tissue solar power installer removal 11/27/23. Intraoperative cultures demonstrated growth of [...] Discussed plans to order a [facility] wound vacin order to expedite the time to wound healing. Patient is open and agreeable to the treatment plan. Once the vac arrives, we will plan for twice weekly vac changes. SHEREEN SMALLWOOD PA-C Please note that portions of this note were generated using voice recognition M*Mappyfriends dictation software. Although every effort was made to ensure the accuracy of this automated construction ironworker, some errors in construction ironworker may have occurred. Shereen Smallwood PA-C 05/27/24 1323 documented in this [facility]03-13-2025 Miscellaneous Notes* [facility] 12:05 PM EDT Pt has unsafe tissue solar power installer for MRI. Nurse and MD aware. Orders cancelled documented [facility] Telephone encounter Note* [facility] 05/12/2024 12:05 PM EDT Pt has unsafe tissue solar power installer for MRI. Nurse and MD aware. Orders cancelled [facility]02-28-2025 History of Present illness Narrative* AMEENA Kennedy - 04/29/2024 9:27 AM EST Picc line order placed. AMEENA Kennedy 05/02/24 0746 documented in this [facility]02-27-2025 NoteWound image from 04/27 was sent to plastic surgeon. Has shown progression from image sent the prior day.[facility]02-27-2025 NoteOn 04/27/2024 at 10:12, patient contacted Clinical Research Pharmacist Dr. Avi Tobar with concerns of hole in wound opening up more. I called Dr. Herman Lui, and he called the patient back and left a message with plastic surgeon Dr. Gross's office and sent them a picture of the wound. Avi McLuckie, PharmD, BCPSUniversSelect [facility]02-27-2025 History of Present illness Narrative* Jhon Gross MD - 04/28/2024 3:15 PM EST [facility] [address] Office Jhon Gross MD, PhD Marisela Cuevas, RESTAURANT ASSISTANT MANAGER-PLATE CONDITIONER INÉS King, RESTAURANT ASSISTANT MANAGER-PLATE CONDITIONER Plastic Surgery Progress Note Reason for visit : post-op History of present illness: Ike Flannery is a 53 y.o. female with a history of right breastcancer status post bilateral skin sparing mastectomies (He) and tissue solar power installer reconstruction in 10/28/2023. Her postoperative course was complicated by an infected seroma of her left breast requiring operative washout and tissue solar power installer removal 11/27/23. Intraoperative cultures demonstrated growth of [...] Plan as above. Jhon Gross MD, PhD [facility] Total time spent was 25 minutes: Preparing to see the patient (e.g., review of tests) Obtaining and/or reviewing separately obtained history Performing a medically appropriate examination and/or evaluation Counseling and educating the patient/family/caregiver Ordering medications, tests, or procedures Referring and communicating with other health early breastfeeding care specialist (not separately reported) Documenting clinical information in the electronic or other health record Independently interpreting results (not separately reported) and communicating results to the patient/family/caregiver Care coordination (not separately reported) Please note that portions of this note were generated using voice recognition M*Mappyfriends dictation software. Although every effort was made to ensure the accuracy of this automated construction ironworker, some errors in construction ironworker may have occurred. documented in this [facility]02-25-2025 NoteImage sent from her left breast wound n 04/26/2024. Reports significant other was changing the dressing, and removing packing when it made another hole. Will touch base with Will plan on continuing current antibiotics.[facility] 04-26-2024 Miscellaneous Notes* Telephone Encounter - Viviane [...] referral to [facility]. documented in this encounterPro[facility]02-[facility]-2025 Telephone encounter Note* Telephone Encounter - Viviane Lopez CMA - 04/26/2024 9:43 AM EST [facility] Called: They said that they received the referral from our office for the patient to have BID wet to dry dressing changes to her breast wound. Unfortunately they do not accept her insurance so they will not be able to provide these services for her. [facility]02-25-2025 Telephone encounter Note* Telephone Encounter - AMEENA Kennedy - 04/26/2024 9:43 AM EST Will fax referral to [facility]. [employer] [facility] Work Phone: [phone] Miscellaneous Notes* Telephone Encounter - AMEENA Kennedy - 04/22/2024 12:35 PM EST Spoke with patient oncology team. They are okay with her port being removed and a picc line being placed. They are working on coordinating that surgery. They have already updated the patient's infectious disease physician. - AMEENA Rand 04/22/24 12:36 PM documented in this encounterProMedica [facility]02-21-2025 Telephone encounter Note* Telephone Encounter - AMEENA Kennedy - 04/22/2024 12:35 PM EST Spoke with patient oncology team. They are okay with her port being removed and a picc line being placed. They are working on coordinating that surgery. They have already updated the patient's infectious disease physician. - AMEENA Rand 04/22/24 12:36 PM [employer] [facility] Work Phone: [phone] History of Present illness Narrative* Catie Walker [...] 12.5 MG tablet Every 24 hours HYDROcodone-acetaminophen ([place]) 5-325 MG tablet TAKE ONE TABLET BY [...] nursing note reviewed. Exam conducted with a route sales specialist present. Vitals: Estimated body mass index is [...] of: Evan Thompson DO documented in this encounterFitzgibbon [id number] History of Present illness Narrative* AMEENA Kennedy - 04/20/2024 3:30 PM EST [facility] [address] Office Jhon Gross MD, PhD Marisela Cuevas, [facility] INÉS King, [facility] Plastic Surgery Progress Note Reason for visit : post-op History of present illness: Ike Flannery is a 53 y.o. female with a history of a history ofright breast cancer status post bilateral skin sparing mastectomies (He) and tissue solar power installer reconstruction in 10/28/2023. Her postoperative course was complicated by an infected seroma of her leftbreast requiring operative washout and tissue solar power installer removal 11/27/23. Intraoperative cultures demonstrated growth of [...] to ensure the accuracy of this automated construction ironworker, some errors in construction ironworker may have occurred. 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 Consent signed and reviewed with Avi Tobar [facility], patient and myself. Everyday, Thursday-Thursday for 20 days Radiation therapy. Keytruda starting on Thursday Oopherectomy plannned Update potassium dose On b6 and b12 On anastrozole. 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 Clofazimine JOSÉ MIGUEL remains <= 0.5 Imipenem remains at JOSÉ MIGUEL of 16 No JOSÉ MIGUEL creep noted. There is an additional culture from 03/21/24 that is pending, has been sent to [facility] for further work up. Awaiting those [...] to tolerate. Will need monitoring labs and pr specialist H/H if it remains persistently low may [...] as the initial trigger followed by breast solar power installer placement. Source control was achieved with solar power installer removal in October. The skin appears healthy [...] the right breast. ER negative (weakly positive) NC negative HER2 negative. Was previously on chemotherapy [...] sounds; no bruits, o (more content not included)...[facility]02-12-2025 History of Present illness Narrative* AMEENA Kennedy - 04/13/2024 2:00 PM EST [facility] [address] Office Jhon Gross MD, PhD Marisela Cuevas, RESTAURANT ASSISTANT MANAGERTUFTS MEDICAL [facility] Shereen Smallwood, INÉS Tellez, [facility] Plastic Surgery Progress Note Reason for visit : post-op History of present illness: Ike Flannery is a 53 y.o. female with a history of right breastcancer status post bilateral skin sparing mastectomies (He) and tissue solar power installer reconstruction in 10/28/2023. Her postoperative course was complicated by an infected seroma of her left breast requiring operative washout and tissue solar power installer removal 11/27/23. Intraoperative cultures demonstrated growth of [...] dry. She has recently met with Dr. Sepulveda'johnna regarding a mass on her ovary. She [...] to ensure the accuracy of this automated construction ironworker, some errors in construction ironworker may have occurred. AMEENA Kennedy 04/13/24 1459 documented in this encounterProMedica [facility]02-12-2025 History of Present illness Narrative* Raymond Sepulveda MD - 04/13/2024 1:00 PM EST Subjective: Ike is a 53 y.o. female here for consultation from for evaluation and management of left-sided pelvic mass. This patient recently underwent a minimally invasive bilateral salpingo-oophorectomy for an ER and NC positive breast cancer, at the time of [...] 02/26/2024 Performed by Jhon Gross MD at [facility] EXCISION LYMPH NODE AXILLARY DISSECTION Right 10/28/2023 Performed by Christy He MD at [facility] EXCISION OF REDUNDANT INFECTED LEFT CHEST WALL TISSUE WITH PRIMARY CLOSURE Left 03/21/2024 Performed by Jhon Gross MD at [facility] HYSTERECTOMY 2006 IMMEDIATE BREAST RECONSTRUCTION WITH TISSUE SUPERVISOR CURED MEATS PLACEMENT Bilateral 10/28/2023 Performed by Jhon Gross MD at [facility] INCISION DRAINAGE BREAST Left 11/27/2023 Performed by Jhon Gross MD at [facility] INCISION DRAINAGE BREAST (WASHOUT) Left 02/26/2024 Performed by Jhon Gross MD at [facility] MAGNETIC SEED LOCALIZATION EXCISION/BIOPSY MASS BREAST (MAG SEED LOCALIZED TARGETED DISSECTION FOR RETRIEVAL OF PREVIOUSLY CLIPPED LYMPH NODE) Right 10/28/2023 Performed by Christy He MD at [facility] MASTECTOMY BREAST SIMPLE RISK REDUCING SKIN SPARING Left 10/28/2023 Performed by Christy He MD at [facility] MASTECTOMY BREAST SIMPLE SKIN SPARING Right 10/28/2023 Performed by Christy He MD at [facility] MENISCECTOMY Bilateral 2022 PORTACATH PLACEMENT Left left chest REMOVAL SUPERVISOR CURED MEATS TISSUE BREAST Left 11/27/2023 Performed by Jhon Gross MD at [facility] RIGHT AXILLARY PROPHYLACTIC BYPASS LYMPHOVENOUS Right 10/28/2023 Performed by Jhon Gross MD at [facility] TONSILLECTOMY AND ADENOIDECTOMY Age 3 TUMOR REMOVAL back-benign Past Medical History: Diagnosis Date Breast cancer ([facility]) 2023 mammary carcinoma Breast wound left Deep vein thrombosis ([facility]) 09/18/2023 Left calf Hypertension Knee pain Mycobacterial [...] right breast of female, estrogen receptor positive ([facility]) S/P breast reconstruction, bilateral Cellulitis of left breast MIRNA (acute kidney injury) ([facility]) Infection of deep incisional surgical site after [...] procedures Referring and communicating with other health early breastfeeding care specialist (not separately reported) Documenting clinical information in the electronic or other health record Raymond Sepulveda MD documented in this encounterProMedica [facility]02-12-2025 History of Present illness Narrative* Nasreen Li, [facility] - 04/13/2024 8:45 AM EST History: Pt was referred to Audiology because of hearing loss. Pt needs baseline audio before she starts a potentially ototoxic antibiotic. Pt does not notice hearing loss. She denies tinnitus. 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 Office Jhon Gross MD, PhD Marisela Cuevas APRNINÉS Potter APRNESPERANZA Plastic Surgery Progress Note Reason for visit : post-op History of present illness: Ike Flannery is a 53 y.o. female with a past medical history right breast cancer status post bilateral skin sparing mastectomies (He) and tissue solar power installer reconstruction in 10/28/2023. Her postoperative course was complicated by an infected seroma of her left breast requiring operative washout and tissue solar power installer removal 11/27/23. Intraoperative cultures demonstrated growth of [...] to ensure the accuracy of this automated construction ironworker, some errors in construction ironworker may have occurred. AMEENA Kennedy 03/30/24 1629 documented in this encounterSt. John of God HospitalVaybee [id number] Instructions* Pre- Procedure Instructions - Lenore Grover RN - 03/18/2024 1:45 PM EST Your surgery/procedure is scheduled at [facility] on 03/21/24 at 3;30 pm Arrival Time 12;30 pm [facility] Address: [address] [place] [address], [facility] in the Emergency Center Parking lot. Report to the front desk assistant in the Emergency/Surgery Registration lobby of the hospital. Notify your SURGEON if you develop any illness such as a cold, cough, fever, sore throat, vomiting or are hospitalized between now and your surgery. Please call Pre-Admission Clinic at [phone] if you have any questions prior to surgery. For questions the morning of surgery, call the Pre-op Department at [phone]. Medication Instructions (Do not stop your medications [...] would like to schedule therapy at a [facility] facility, please call [phone] ([phone]). Do not use lotions, creams, powders, perfume, make up, cologne or after-shaves day of surgery. Remove ALL jewelry including wedding rings, body piercings, hair extensions that contain metal, nail tajik, make-up, and contact lens. You may brush your teeth the morning of surgery, but do not swallow the water. Wear your dentures and partial plates to the hospital (no adhesive). Shower the night the before. If applicable, use the CHG (chlorhexidine gluconate) soap or wipes. Please be advised, [facility] has transitioned to a cashless payment [...] RIGHTS AND RESPONSIBILITIES As a patient at [facility], you have the right to: Receive medical care and be informed of who is taking care of you Be treated with dignity and respect Have a family member/telephone service representative of choice and your physician notified of your admission Receive information and actively participate in decisions about your care and treatment Refuse care, treatment and services Decide who may provide your support and speak for you Access roman catholic and spiritual services Participate in ethical issues [...] of hospital charges and payment methods Patient/patient telephone service representative responsibilities are to: Provide information about health status to facilitate care, treatment and services Follow the treatment, plan, keep appointments and speak up when you do not understand the plan Respect the rights of other patients and healthcare personnel Follow organizational rules and regulations that support quality care and a safe environment Fulfill financial obligations as promptly as possible [facility]01-17-2025 Miscellaneous Notes* Pre-Procedure Instructions - Lenore Grover RN - 03/18/2024 1:45 PM EST Your surgery/procedure is scheduled at [facility] on 03/21/24 at 3;30 pm Arrival Time 12;30 pm [facility] Address: [address] [place] [address], [address] [place] [address] in the Emergency Center Parking lot. Report to the front desk assistant in the Emergency/Surgery Registration lobby of the hospital. Notify your SURGEON if you develop any illness such as a cold, cough, fever, sore throat, vomiting or are hospitalized between now and your surgery. Please call Pre-Admission Clinic at [phone] if you have any questions prior to surgery. For questions the morning of surgery, call the Pre-op Department at [phone]. Medication Instructions (Do not stop your medications [...] would like to schedule therapy at a [facility] facility, please call [phone] ([phone]). Do not use lotions, creams, powders, perfume, make up, cologne or after-shaves day of surgery. Remove ALL jewelry including wedding rings, body piercings, hair extensions that contain metal, nail tajik, make-up, and contact lens. You may brush your teeth the morning of surgery, but do not swallow the water. Wear your dentures and partial plates to the hospital (no adhesive). Shower the night the before. If applicable, use the CHG (chlorhexidine gluconate) soap or wipes. Please be advised, [facility] has transitioned to a cashless payment system. [...] RIGHTS AND RESPONSIBILITIES As a patient at [facility], you have the right to: Receive medical care and be informed of who is taking care of you Be treated with dignity and respect Have a family member/telephone service representative of choice and your physician notified of your admission Receive information and actively participate in decisions about your care and treatment Refuse care, treatment and services Decide who may provide your support and speak for you Access roman catholic and spiritual services Participate in ethical issues [...] of hospital charges and payment methods Patient/patient telephone service representative responsibilities are to: Provide information about health status to facilitate care, treatment and services Follow the treatment, plan, keep appointments and speak up when you do not understand the plan Respect the rights of other patients and healthcare personnel Follow organizational rules and regulations that support quality care and a safe environment Fulfill financial obligations as promptly as possible documented in this encounterProMedica Flower Hospital01-15-2025 NotePatient seen in clinic today for [...] the other 2 are in the media analytics manager section from today's date -she has [...] insurance company for a referral to an microbiology quality control technician, need to start chemotherapy within the next [...] Lui will consult with mycobacterial experts at [facility] regarding the risk of worsening or inability control the current mycobacterial infection with the planned chemotherapeutic agents and then he will yuhaaviatam back with oncology as well -if there [...] to need to communicate to us through [place] and she has an appointment scheduled for [...] if possible Addendum: spoke with Dr. Gross ([phone]) and his staff will call her to get her on the surgery schedule. Spoke with Dr. Hope ([phone]) and he will try to start chemo in late [facility] 03-15-2024 Miscellaneous Notes* Telephone Encounter - Alton Greco - 03/15/2024 4:49 PM EST [facility] Cesar (Radiology) Requested Most Recent Office Note Faxed at 4:45pm 03/15/24 documented in this encounterSt. John of God HospitalFoxGuard Solutions [facility] [id number] Telephone encounter Note* Telephone Encounter - Alton Saulnicci - 03/15/2024 4:49 PM EST [facility] Cesar (Radiology) Requested Most Recent Office Note Faxed at 4:45pm 03/15/24 [facility]01-13-2025 Evaluation note* Diagnosis Onset Date Resolution Status Admit Date Breast cancer, right acute [facility] 2024 2:42pm Breast cancer, right acute Febr uary 2024 2:57pm [facility] Work Phone: 1(544) 432-515101-09-2025 History of Present illness Narrative* Megan Savannah - 03/10/2024 11:00 AM EST Reason for Appointment: Patient ID: Ike Flannery is a 53 y.o. female who presents for No chief complaint on file. Patient presents today for Pre Op appointment. Patient is scheduled to undergo Da Jason assisted Diagnostic Laparoscopy with Bilateral Salpingo-Oophorectomy, possible BEATA, possible FOE on 04/07/[address] Thompson at [facility]. MEDICATIONS Current Outpatient Medications Medication Instructions chlorthalidone [...] 12.5 MG tablet Every 24 hours HYDROcodone-acetaminophen (Coweta) 5-325 MG tablet TAKE ONE TABLET BY [...] Date ANTERIOR CRUCIATE LIGAMENT REPAIR Right 2006 [employer] US GUIDED BREAST LOCALIZATION RIGHT Right [...] nursing note reviewed. Exam conducted with a route sales specialist present. Vitals: Estimated body mass index is [...] reviewed, and patient is to proceed to [facility] OR. Follow Up: Patient is to follow up between 1-2 weeks post operative to assess proper healing and recovery fromprocedure. Documented by Catie Walker LPN on behalf of: Evan Thompson DO documented in this encounterFitzgibbon [id number] History of Present illness Narrative* Jhon Gross MD - 03/10/2024 8:15 AM EST [facility] [address] Office Jhon Gross MD, PhD Marisela Cuevas, RESTAURANT ASSISTANT MANAGER-PLATE CONDITIONER INÉS King, RESTAURANT ASSISTANT MANAGER-PLATE CONDITIONER Plastic Surgery Progress Note Reason for visit [...] left breast requiring operative washout and tissue solar power installer removal in November 2023. Intraoperative cultures demonstrated [...] active infection, no palpable fluid collections Female route sales specialist present - yes Impression: 1. Postoperative visit 2. Mycobacterium abscessus infection 3. S/P breast reconstruction, bilateral 4. Malignant neoplasm of lower-inner quadrant of right breast of female, estrogen receptor positive([facility]) Recommendations: 1mnth f/u w renato sutures were pulled f/u with 03/16 Dr. Gross will reach out to [...] this note were generated using voice recognition M*Mappyfriends dictation software. Although every effort was made to ensure the accuracy of this automated construction ironworker, some errors in construction ironworker may have occurred. I, JHON GROSS MD, [...] as stated above. Jhon Gross MD, PhD [facility] Total time spent was 25 minutes: Preparing to see the patient (e.g., review of tests) Obtaining and/or reviewing separately obtained history Performing a medically appropriate examination and/or evaluation Counseling and educating the patient/family/caregiver Ordering medications, tests, or procedures Referring and communicating with other health early breastfeeding care specialist (not separately reported) Documenting clinical information in the electronic or other health record Independently interpreting results (not separately reported) and communicating results to the patient/family/caregiver Care coordination (not separately reported) documented in this encounterProMedica Flower Hospital01-02-2025 History of Present illness Narrative* Jhon Gross MD - 03/03/2024 12:30 PM EST [facility] [address] Office Jhon Gross MD, PhD Marisela Cuevas, RESTAURANT ASSISTANT MANAGER-PLATE CONDITIONER INÉS King, RESTAURANT ASSISTANT MANAGER-PLATE CONDITIONER Plastic Surgery Progress Note Reason for visit [...] left breast requiring operative washout and tissue solar power installer removal in November 2023. Intraoperative cultures demonstrated [...] of right breast of female, estrogen receptor positive([facility]) Recommendations: Will discuss with SHANA-Dr Lui whether [...] as stated above. Jhon Gross MD, PhD [facility] Total time spent was 20 minutes: Preparing to see the patient (e.g., review of tests) Obtaining and/or reviewing separately obtained history Performing a medically appropriate examination and/or evaluation Counseling and educating the patient/family/caregiver Ordering medications, tests, or procedures Referring and communicating with other health early breastfeeding care specialist (not separately reported) Documenting clinical information in the electronic or other health record Independently interpreting results (not separately reported) and communicating results to the patient/family/caregiver Care coordination (not separately reported) Please note that portions of this note were generated using voice recognition M*Mappyfriends dictation software. Although every effort was made to ensure the accuracy of this automated construction ironworker, some errors in construction ironworker may have occurred. documented in this encounterSt. John of God HospitalFoxGuard Solutions [facility] [id number] Miscellaneous Notes* Telephone Encounter - Arlet Selby - 03/02/2024 2:27 AM EST Contract: Marisel Zaragoza @[facility] Microbiology Lab called with a critical result * Telephone Encounter - Maria Del Carmen Knight - 03/02/2024 2:[address] Gross cell and left message to call [facility]. * Telephone Encounter - Maria Del Carmen Szymanskifford - 03/02/2024 2:[address] Gross cell and left message to call [facility]. * Telephone Encounter - Maria Del Carmen Szymanskifford - 03/02/2024 2:[address] Gross cell and left message to call [facility]. * Telephone Encounter - Maria Del Carmen Szymanskifford - 03/02/2024 2:[address] Gross cell and left message to call [facility]. * Telephone Encounter - Maria Del Carmen Szymanskifford - 03/02/2024 2:[address] Gross cell and left message to call [facility] * Telephone Encounter - Maria Del Carmen Szymanskifford - 03/02/2024 2:[address] Gross cell and left message to call [facility]. * Telephone Encounter - Maria Del Carmen Szymanskifford - 03/02/2024 2:[address] Gross called and connected with lab. documented in this encounterProMedica Flower Hospital01-01-2025 Telephone encounter Note* Telephone Encounter - Arlet Selby - 03/02/2024 2:27 AM EST Contract: Marisel Zaragoza @[facility] Microbiology Lab called with a critical result [facility]01-01-2025 Telephone encounter Note* Telephone Encounter - Maria Del Carmen Szymanskifford - 03/02/2024 2:[address] Gross cell and left message to call [facility]. [facility]01-01-2025 Telephone encounter Note* Telephone Encounter - Maria Del Carmen Szymanskifford - 03/02/2024 2:[address] Gross cell and left message to call [facility]. [facility]01-01-2025 Telephone encounter Note* Telephone Encounter - Maria Del Carmen Antonia - 03/02/2024 2:[address] Gross cell and left message to call [facility]. [facility]01-01-2025 Telephone encounter Note* Telephone Encounter - Maria Del Carmenpati Knight - 03/02/2024 2:[address] Gross cell and left message to call [facility]. [facility]01-01-2025 Telephone encounter Note* Telephone Encounter - Maria Del Carmenpati Knight - 03/02/2024 2:[address] Gross cell and left message to call [facility]01-01-2025 Telephone encounter Note* Telephone Encounter - Maria Del Carmenpati Knight - 03/02/2024 2:[address] Gross cell and left message to call [facility]. [facility]01-01-2025 Telephone encounter Note* Telephone Encounter - Maria Del Carmen Knight - 03/02/2024 2:[address] Gross called and connected with lab. [facility]12-30-2024 Miscellaneous Notes* Telephone Encounter - Joya Gray CMA - 02/29/2024 8:20 AM EST Attempted to call patient to reschedule her 1/[address] Gross If patient calls back please place her on [address] Gross documented in this encounterProMedica Flower Hospital12-30-2024 Telephone encounter Note* Telephone Encounter - Joya Gray CMA - 02/29/2024 8:20 AM EST Attempted to call patient to reschedule her 1/[address] Gross If patient calls back please place her on 03/[address] Gross [facility]12-24-2024 Miscellaneous Notes* Telephone Encounter - Jhon [...] agreeable with this plan. documented in this encounterProMedica Flower Hospital12-24-2024 Telephone encounter Note* Telephone Encounter - [...] evaluation. She was agreeable with this plan. [facility]12-24-2024 Miscellaneous Notes* Telephone Encounter - Graciela Borges CMA - 02/23/2024 7:54 PM EST Contract: [id number] Pt called said she has a a dehiscence wound from breast surgery that is leaking. * Telephone Encounter - Graciela Borges CMA - 02/23/2024 7:[address] Gross called back, connected to pt. documented in this encounterProMedica Flower Hospital12-24-2024 Telephone encounter Note* Telephone Encounter - Graciela Borges CMA - 02/23/2024 7:54 PM EST Contract: [id number] Pt called said she has a a dehiscence wound from breast surgery that is leaking. [facility]12-24-2024 Telephone encounter Note* Telephone Encounter - Graciela Borges CMA - 02/23/2024 7:[address] Gross called back, connected to pt. 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 Consent signed and reviewed with Avi Tobar [facility], patient and myself. Everyday, Thursday-Thursday for 20 days Radiation therapy. Keytruda starting on Thursday Oopherectomy plannned Update potassium dose On b6 and b12 On anastrozole. Clofazimine started on 02/14March 18 EKG Mar 24- trip to [place], advised wearing a mask while in crowded places, would avoid public pools, showers, water méndez Recommendations: Continue on PO Tedizolid 200mg once daily Continue clofazamine 100mg once daily, started on 02/14 Imipenem has been extended an additional 4 weeks Will meet with allergy and immunology to discuss tetracycline allergy and possible desensitization Discussed with hand candle molder. PA appeal pending. Will need monitoring labs and pr specialist H/H if it remains persistently low may [...] as the initial trigger followed by breast solar power installer placement. Source control was achieved with solar power installer removal in October. The skin appears healthy [...] the right breast. ER negative (weakly positive) NC negative HER2 negative. Was previously on chemotherapy [...] (Flexeril) 10 mg tab (more content not included)...[facility]12-16-2024 NoteWill have additional follow up on 04/18 where we will discuss continued antibiotic therapy. In process of completing PA for omadacycline Continue on Tidelzolid Would extend imipenem for 4 additional weeks. Can be discontinue early if we are able to obtain omadacycline and de-sensitize her appropriately.[facility]12-16-2024 History of Present illness Narrative* Catie Walker [...] 12.5 MG tablet Every 24 hours HYDROcodone-acetaminophen (Coweta) 5-325 MG tablet TAKE ONE TABLET BY [...] nursing note reviewed. Exam conducted with a route sales specialist present. Vitals: Estimated body mass index is [...] will need to have urinary stents placed. Oil Separator will reach out to patient once surgery is setup. Patient to return to clinic for pre-op appointment. Documented by Catie Walker LPN on behalf of: Evan Thompson DO documented in this encounterFitzgibbon [id number] Evaluation note* Diagnosis Onset Date Resolution Status Admit Date Mycobacterium abscessus infection acute February 10, 2 024 2:21pm Breast cancer, right acute [place] 2024 2:42pm [facility] Work Phone: 1(782) 385-234512-12-2024 Evaluation note* Diagnosis Onset Date Resolution Status Admit Date Mycobacterium abscessus infection acute February 10, 2 024 2:21pm Breast cancer, right acute [place] [facility] 2024 2:42pm Breast cancer, right acute Febr uary 2024 2:57pm [facility] Work Phone: 1(471) 116-309512-12-2024 NoteClinical Reasoning Patient has a history of [...] wound in relation to where a breast solar power installer was placed. She has macrolide resistant Mycobacterium [...] the patient Her resistance as tested at [facility] is below: Sources: Cuauhtemoc Au, Clement Curry, Nicci Lacey, Michael Heard, Emily Hamilton, Kayleigh Gutierrez, Michael Michelle, Aye Hopson, Marianna Draper, Efficacies of three drug regimens containing omadacycline to treat Mycobacteroides abscessus disease, Tuberculosis, Volume 146, 202, 661133, ISSN 5293-4962, https://doi.org/10.1016/j.tube.2023.225713. Omadacycline as a promising new agent for the treatment of infections with Mycobacterium abscessus J Antimicrob Chemother 2019; 74: 7551-0215 doi:10.1093/peyman/hvs989 Advance Access publication 23 August 2018 Jean SHORT, Kyree LORENZANA, Jr. 2020. In vitro susceptibility testing of omadacycline against nontuberculous mycobacteria. Antimicrob Agents Chemother 65:g23842-99. https://doi.org/10.1128/AAC.08218-52. León Berry, Kalpana Edmonds, Camilo Valdez, Ermelinda Valdez. 2019. In vitro activities of omadacycline against rapidly growing mycobacteria. Antimicrob Agents Chemother 63:a07945-43. https://doi.org/10.1128/AAC .26474-40. Omadacycline for treatment of Mycobacterium chelonae skin infection Iliana Sin MSa , Corrina Marcelo MDb, and Monique Delacruz PROC ([facility]) 2020;33(4):610611 Copyright # 2020 [facility] https://doi.org/10.1080/24761010.2020.0618399 Herman Lui DO [facility] Infectious DiseaseKettering Health [facility]12-11-2024 Telephone encounter Note* Telephone Encounter - Yves Coffey MD - 02/10/2024 4:58 PM EST I suggested she speak with her infectious disease physician about either selecting a different agent or writing a letter for the insurance company to get the procedure covered. [employer] [id number] Miscellaneous Notes* Telephone Encounter - Yves Coffey MD - 02/10/2024 4:58 PM EST I suggested she speak with her infectious disease physician about either selecting a different agent or writing a letter for the insurance company to get the procedure covered. documented in this encounterFitzgibbon [id number] History of Present illness Narrative* Yves Coffey [...] of call 8 minutes. documented in this encounterFitzgibbon [id number] History of Present illness Narrative* Yevs Coffey MD - 01/25/2024 10:00 AM EST [...] as an inpatient in the ICU at [facility]. I will call the hospitalist at [facility] tomorrow about direct admission to the ICU for this procedure in the next several days. I explained to the patient the need to stop her toprol 36 hours before her procedure. She is on this for Trigeminy and HTN. I asked her to communicate withher safe and vault mechanic whether she can stop this medication briefly for 36 hours prior to her procedure. Time of Visit 70 minutes including review of prior records and communicating with her referring infectious disease physician on the phone and contact the patient after hours to discuss the final plan. 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 Consent signed and reviewed with Avi Tobar [facility], patient and myself. Everyday, Thursday-Thursday for 20 [...] as the initial trigger followed by breast solar power installer placement. Source control was achieved with solar power installer removal in October. The skin appears healthy [...] the right breast. ER negative (weakly positive) NC negative HER2 negative. Was previously on chemotherapy [...] Disp: , Rfl: T (more content not included)...[facility]10-30-2024 History of Present illness Narrative* Georgiana Justice [...] Refer to Evon MASON. documented in this encounterFitzgibbon [id number] Note Attestation signed by Herman Lui DO [...] breast malignancy s/p bilateral mastectomy with tissue solar power installer placed in 10/28/2023. [place] water exposure was approximately a month prior making the port on the left side the possible portal of entry. Tissue solar power installer has been taken out, the left chest [...] the right breast. ER negative (weakly positive) NC negative HER2 negative. She received neoadjuvant chemotherapy with carboplatin and paclitaxel and Keytruda on September 28. Of note, she went to the ocean shortly after September 28 and believes that she might have gotten water splashed from the ocean on her port. She underwent double mastectomy in October 2023 at which point the spacer was placed. She had a tissue solar power installer on her left breast that was removed in October because of the mycobacterial infection. At the time, the breast became erythematous with the solar power installer in place. Culture grew Mycobacterium abscessum. The solar power installer was removed November 25 and it was [...] intended. She is going to Radiology at [facility] in [place]. She is currently on oral clarithromycin 500 [...] in the morning. c (more content not included)...[facility]10-29-2024 Evaluation note* Diagnosis Onset Date Resolution Status Admit Date Breast cancer, right acute Octo markel 2023 10:50am Mycobacterium abscessus infection acute February 10, 024 2:21pm Breast cancer, right acute Garfield randolph 2024 2:42pm [facility] Work Phone: [phone] History of Present illness Narrative* Shereen Smallwood PA-C - 12/29/2023 8:30 AM EDT [facility] [address] Office Jhon Gross MD, PhD Marisela Cuevas, RESTAURANT ASSISTANT MANAGER-PLATE CONDITIONER INÉS King APRN-ESPERANZA Plastic Surgery Progress Note [...] developed an infection of her left tissue solar power installer and went underwent I&D of left breast was removal of tissue solar power installer 11/27/2023. She presents tothe office today for tissue solar power installer filled. She reports that she meets with radiation oncology next week for possible simulation. She is doing well however she does wish to be proximally a D cup and feels that she is a high see at present. Her breast is tight and she is uncertain whether she can accommodate more volume. Procedure note : Tissue solar power installer fill port, was identified using magnet. This area was cleansed with alcohol, and Betadine. Then using a 25 gauge needle, approximately 75ml normal saline was injectedinto right tissue solar power installer(s). Patient tolerated well. Adequate hemostasis was achieved, [...] of right breast of female, estrogen receptor positive([facility]) Recommendations: Patient tolerated the MAGO fill. We [...] to ensure the accuracy of this automated construction ironworker, some errors in construction ironworker may have occurred. 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 The exam may include: ?Putting eye drops [...] provider. Document Revised: 09/04/2021 Document Reviewed: 09/04/2021 [employer] Patient Education 2023 [employer]ak[employer]. 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 The exam may include: ? Putting eye [...] provider. Document Revised: 09/04/2021 Document Reviewed: 09/04/2021 [employer] Patient Education ? 2023 [employer]ak[employer].[facility] 12-28-2023 Evaluation + Plan noteExtracted from: Title:ED Note Author:Rusty Horton DO. 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 Office Jhon Gross MD, PhD [...] developed an infection of her left tissue solar power installer and went underwent I&D of left breast was removal of tissue solar power installer 11/27/2023. Shepresents to the office today for tissue solar power installer filled. She reports that she meets with [...] Recommendations: Patient is doing well postoperatively. Tissue solar power installer filled performed in office today. Discussed with patient she can use ejfj-jel-yangsks acetaminophen or ibuprofen for Any discomfort after tissue solar power installer filled. Continue with supportive bra. Okay to [...] this note were generated using voice recognition Waterfall dictation software. Although every effort was made to ensure the accuracy of this automated construction ironworker, some errors in construction ironworker may have occurred. AMEENA Kennedy 12/21/23 1500 documented in this [facility]10-16-2024 Miscellaneous Notes* Telephone Encounter - Deborah Wills CMA - 12/16/2023 11:25 AM EDT Patient will call us back to schedule a hospital follow up documented in this [facility]10-16-2024 Telephone encounter Note* Telephone Encounter - Deborah Wills CMA - 12/16/2023 11:25 AM EDT Patient will call us back to schedule a hospital follow up [facility] History of Present illness Narrative* AMEENA Kennedy - 12/14/2023 3:30 PM EDT [facility] [address] Office Jhon Gross [...] developed an infection of her left tissue solar power installer and went underwent I&D of left breast was removal of tissue solar power installer 11/27/2023. Patient did have positive cultures. She continues to follow with Infectious Disease. She presents to office today for right breast tissue solar power installer filled. She states overall she is doing [...] complexes are surgically absent. Right breast tissue solar power installer in place. Procedure note : Tissue solar power installer fill port, was identified using magnet. This area was cleansed with alcohol, and Betadine. Then using a 25 gauge needle, approximately 200ml normal saline was injected into right tissue solar power installer(s). Patient tolerated well. Adequate hemostasis was achieved, [...] continue to expand her right breast tissue solar power installer until she is at a size she is happy with. We would like this to be completed prior to starting radiation therapy. She does have an appointment scheduled to meet with Radiation Oncology at the end of the month. Continue with IV antibiotics per Infectious disease's recommendations. Continue to refrain from any heavy lifting, pushing or pulling. Follow up next week for tissue solar power installer filled. She was advised to call the office any questions orconcerns in the interim. - AMEENA Rand 12/14/23 3:57 PM Please note that portions of this note were generated using voice recognition Waterfall dictation software. Although every effort was made to ensure the accuracy of this automated construction ironworker, some errors in construction ironworker may have occurred. AMEENA Kennedy 12/14/23 1557 documented in this encounterSt. John of God HospitalVaybee [id number] History of Present illness Narrative* TATI Gordon - 12/14/2023 2:00 PM EDT POSTOPERATIVE VISIT DIAGNOSIS: Right IDC grade 3, ER 75, NC-, Qby-9-alrnawfk (IHC score 1+), 1.8 cm, 6/12 nodes+ STAGE: ypT1c N2a DATE OF DIAGNOSIS: 04/10/2023 OPERATION PERFORMED: Right skin sparing mastectomy, right axillary lymph node dissection, left risk-reducing skin sparing mastectomy, right lymphovenous bypass and bilateral tissue expanders (10/29/2023); s/p I&D left breast w removal of tissue solar power installer d/t infection (11/27/2023). GENETIC TESTING: No mutations MED ONC: Dr. Luis Hope RAD ONC: Referred PLASTICS: Dr. Jhon Gross PATHOLOGY: The following pathology was reviewed and discussed with the patient. [facility] [address] [place] [address] Surgical Pathology Consultation Patient Name:IKE FLANNERY:1970 (Age: 53)Gender:FTaken:4Reported:4Physician(s):Christy He MD ([phone])Copy To:Jhon Gross, [facility] Centeression #:[id number]. Rec. #:[id number]: #[id number] Final Pathologic Diagnosis 1. Left breast, mastectomy: [...] IMPRESSION: -Right IDC grade 3, ER 75, NC-, Ual-2-dpbhxrcu (IHC score 1+); s/p right skin sparing mastectomy, right axillary lymph node dissection, left risk-reducing skin sparing mastectomy, right lymphovenous bypass and bilateral tissue expanders (10/29/2023); 1.8 cm, 6/12 nodes+; s/p I&D left breast w removal of tissue solar power installer d/t infection (11/27/2023 PLAN: Discussed pathology report [...] to her next visit. Francisca Mason PA-C [facility] [phone] (phone) TATI Gordon 12/16/23 1226 documented in this encounterProMedica Flower Hospital10-11-2024 NoteSubjective Patient ID: Tia Eason Widchen is a 53 y.o. female. 53-year-old woman referred for evaluation and management of Mycobacterium abscessus infection related to left breast solar power installer status postmastectomy. The tissue solar power installer was removed on 26 November. A specific question would be when is she able to receive radiation therapy as part of her breast cancer treatment. 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 ER negative (weakly positive) NC negative HER2 negative. She received neoadjuvant chemotherapy with carboplatin and paclitaxel and Keytruda. She underwent double mastectomy in October 2023. Had a follow-up visit on 24 November, she had fluid aspiration from her left breast. This was smear positive for acid-fast bacilli; subsequent cultures grew Mycobacterium abscessus. The tissue solar power installer was removed on 26 November. She appears [...] home antibiotic therapy. She was referred to [facility] infectious disease with a planned visit in mid December; we accommodated an earlier visit. She says that she takes trazodone intermittently for sleep. She does not take it regularly. She last took it last night. 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 Review [...] Exam Vitals reviewed. Exam conducted with a route sales specialist present. Constitutional: Appearance: Normal appearance. HENT: Head: [...] calor, no dolor, no tumor, no drainage. 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 Cultures were positive from 24 November. Breast solar power installer was removed on 26 November. She appears [...] female We will continue (more content not included)...[facility]10-11-2024 Miscellaneous Notes* Telephone Encounter - Ana Ibrahim [...] AM EDT Mailbox full documented in this encounterProMedica Flower Hospital10-11-2024 Telephone encounter Note* Telephone Encounter - Ana Ibrahim - 12/11/2023 10:24 AM EDT Needs TCM before 12/21 [facility]10-11-[facility] Telephone encounter Note* Telephone Encounter - Anaalfredo Ibrahim - 12/11/2023 10:24 AM EDT Mailbox full [facility] Telephone encounter Note* Telephone Encounter - Anaalfredo Ibrahim - 12/11/2023 10:24 AM EDT he has upcoming appts with at least 3 specialties that is a lot with what she is going through. If she needs anything from me let me know- she could do telehealth too. 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 New rash Acute kidney injury History of breast cancer S/p bilateral mastectomies S/p bilateral breast reconstruction October 28, 2023 Discharge Specialty: Hem/Onc, Infectious Disease, and Nephrology *Name of Discharging Facility: [facility] Date of Facility Discharge: Admitted; 12/02/23 Discharged: 12/09/23 Date of Interactive Contact and Name of Tear Down Man: 12/11/23 Patient: Ike Flannery *Medication Review Completed: [...] with Providers: Primary: AMEENA GARCIA Specialty: ID ([facility]): 12/11/23 Specialty: Surgical Oncology (TATI Mason): [...] Called patient mailbox full documented in this encounterNorthwestern Medical CenterTzee10-11-2024 Telephone encounter Note* Telephone Encounter - Mela Berrios RN - 12/11/2023 9:15 AM EDT Transition of Care (*required) *Additional Questions/Concerns Requiring PCP Follow-Up: For TCM, patient would need appt on/before 12/22/23 This documentation is being used for Transition of Care purposes: Yes Goal: Patient will demonstrate a safe transition from hospital to home Diagnosis on Discharge: 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 installer-culture with mycobacterium abscessus New rash Acute kidney injury History of breast cancer S/p bilateral mastectomies S/p bilateral breast reconstruction October 28, 2023 Discharge Specialty: Hem/Onc, Infectious Disease, and Nephrology *Name of Discharging Facility: [facility] Date of Facility Discharge: Admitted; 12/02/23 Discharged: 12/09/23 Date of Interactive Contact and Name of Tear Down Man: 12/11/23 Patient: Ike Flannery *Medication Review Completed: [...] with Providers: Primary: AMEENA GARCIA Specialty: ID ([facility]): 12/11/23 Specialty: Surgical Oncology (TATI Mason): [...] Utilized/Needed by the Patient: [employer] infusion [facility] [id number] Telephone encounter Note* Telephone Encounter - Ana Ibrahim - 12/11/2023 9:15 AM EDT Called patient mailbox full [facility] [id number] History of Present illness Narrative* Og Morton [...] BMP in 1 week and follow-up withMD /TONGSMAN in renal clinic in 1 months time. [...] seroma status post removal of left breast solar power installer on November 27, 2023 Hypertension Edema Depression/anxiety [...] 8 (L) 01/31/2022 Please contact me at [phone] (Office) or [phone] (Answering service) with any questions. Please feel free to contact me through [employer] Secure chat during the daytime hours, if no response after 5 minutes then call the answering service. Og Morton MD [facility] This note was created with the assistance of a speech-recognition program. Although the intention is to generate a document that actually reflects the content of the visit, no guarantees can be provided that every mistake has been identified and corrected by editing. 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 Lui for usp management -has appointment January 13 WBC, platelets, creatinine, LFTs weekly while on antibiotics Prescription for imipenem provided to business continuity planner Follow-up CBC renal function WBC 4.3, [...] 60 min Stress: Stress Concern Present (02/27/2022) [employer] [employer] - Occupational Stress Questionnaire [...] Value Units Date/Time Resp Pathogens Panel/SARS CoV-2 [[id number]] Collected: 12/05/23 1158 Specimen: Nasopharynx Updated: 12/05/23 [...] COV 2 Not Detected Blood culture #2 [[id number]] Collected: 12/05/23 1040 Specimen: Blood Updated: 12/08/23 1508 Culture NO GROWTH 3 DAYS Blood culture #1 [[id number]] Collected: 12/05/23 1031 Specimen: Blood Updated: 12/08/23 1507 Culture NO GROWTH 3 DAYS Urine culture [[id number]] Collected: 12/02/23 2305 Specimen: Urine, Clean Catch Midstream Updated: 12/04/23 0709 Culture NO GROWTH AT <1000 CFU/mL Blood culture [[id number]] Collected: 12/02/23 2231 Specimen: Blood, Line Draw Updated: 12/08/23 0817 Specimen Notes SUBOPTIMAL VOLUME OF BLOOD COLLECTED, RESULTS MAY BE AFFECTED. Culture NO GROWTH 5 DAYS Blood culture [[id number]] Collected: 12/02/23 2213 Specimen: Blood, Line Draw [...] Please call with questions. Gino Flower APRN, [facility] [phone] This note was completed using a voice construction ironworker system. Every effort was made to ensure accuracy. However, inadvertent computerized construction ironworker errors may be present. Gino Flower APRN-PLATE CONDITIONER 12/09/23 8199 Carlene Landon MD, personally performed pqbf-qr-zqal diagnostic evaluation on this patient I reviewed and performed all the ross component of the patient visit I reviewed CELINA history, exam and MDM - Carlene Noguera MD 12/09/23 2:08 PM * Amy Singh MD - 12/08/2023 5:15 PM EDT Images from the original note were not included. [facility] INTERNAL MEDICINE [facility] - 7 ONCOLOGY/STROKE [address] [place] [address] Hospital Medicine Progress Note Patient: Ike Flannery Date of : 1970 Room[facility] PCP: RICHIE HANNA APRN-PLATE CONDITIONER Admission date: 12/02/2023 9:55 PM Encounter date: [...] tenderness or frontal sinus tenderness. Mouth/Throat: Lips: Finzel. Mouth: Mucous membranes are moist. Pharynx: Oropharynx [...] Q12H RADHA Infusions: As Needed: acetaminophen albuterol xjmilqc-fkusmcxtslvzq-itkedjcw calcium gluconate calcium gluconate calcium gluconate cyclobenzaprine [...] LIST Principal Problem: MIRNA (acute kidney injury) ([facility]) Active Problems: Hypertension Malignant neoplasm of lower-inner quadrant of right breast of female, estrogen receptor positive ([facility]) Cellulitis of left breast Infection of deep [...] and plastic surgery following, referral sent to [facility] ID -continue cipro and clarithromycin, imipenem -benadryl PRN -follow cultures -Continue eliquis -Hold lisinopril, lasix and spironolactone until MIRNA improves -replace B12 -replace and monitor electrolytes per protocol and scale Amy Singh MD * Gino Flower APRN-PLATE CONDITIONER - 12/08/2023 5:13 PM EDT [facility] - Daily Progress Note Ike Flannery Admission date/time 12/02/2023 9:55 PM Today's Date and Time: 12/08/2023, 5:14 PM Impression : 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 Lui for usp management If patient remains afebrile, we will [...] 60 min Stress: Stress Concern Present (02/27/2022) [employer] [employer] - Occupational Stress Questionnaire [...] Value Units Date/Time Resp Pathogens Panel/SARS CoV-2 [[id number]] Collected: 12/05/23 1158 Specimen: Nasopharynx Updated: 12/05/23 [...] COV 2 Not Detected Blood culture #2 [[id number]] Collected: 12/05/23 1040 Specimen: Blood Updated: 12/08/23 1508 Culture NO GROWTH 3 DAYS Blood culture #1 [[id number]] Collected: 12/05/23 1031 Specimen: Blood Updated: 12/08/23 1507 Culture NO GROWTH 3 DAYS Urine culture [[id number]] Collected: 12/02/23 2305 Specimen: Urine, Clean Catch Midstream Updated: 12/04/23 0709 Culture NO GROWTH AT <1000 CFU/mL Blood culture [[id number]] Collected: 10/02/24 2231 Specimen: Blood, Line Draw Updated: 12/08/23816 Specimen Notes SUBOPTIMAL VOLUME OF BLOOD COLLECTED, RESULTS MAY BE AFFECTED. Culture NO GROWTH 5 DAYS Blood culture [[id number]] Collected: 12/02/232212 Specimen: Blood, Line Draw Updated: [...] call with questions. Gino Flower APRN, CNP [phone] This note was completed using a voice construction ironworker system. Every effort was made to ensure accuracy. However, inadvertent computerized construction ironworker errors may be present. AMEENA Vallejo 12/08/23 1719 * Shereen Smallwood PA-C - 12/08/2023 3:46 PM EDT [facility] [address] [place] [id number] Office Jhon Gross MD, PhD AMEENA Kennedy [...] Value Units Date/Time Resp Pathogens Panel/SARS CoV-2 [[id number]] Collected: 12/05/23 1158 Specimen: Nasopharynx Updated: 12/05/23 [...] COV 2 Not Detected Blood culture #2 [[id number]] Collected: 12/05/23 1040 Specimen: Blood Updated: 12/08/23 1508 Culture NO GROWTH 3 DAYS Blood culture #1 [[id number]] Collected: 12/05/23 1031 Specimen: Blood Updated: 12/08/23 1507 Culture NO GROWTH 3 DAYS Urine culture [[id number]] Collected: 12/02/23 2305 Specimen: Urine, Clean Catch Midstream Updated: 12/04/23 0709 Culture NO GROWTH AT <1000 CFU/mL Blood culture [[id number]] Collected: 12/02/23 2231 Specimen: Blood, Line Draw Updated: 12/08/23 0817 Specimen Notes SUBOPTIMAL VOLUME OF BLOOD COLLECTED, RESULTS MAY BE AFFECTED. Culture NO GROWTH 5 DAYS Blood culture [[id number]] Collected: 12/02/23 2213 Specimen: Blood, Line Draw Updated: 12/08/23812 Specimen Notes SUBOPTIMAL VOLUME OF BLOOD COLLECTED, RESULTS MAY BE AFFECTED. Culture NO GROWTH 5 DAYS Assessment: Ike Flannery is a 53 y.o. female Post-Operative Day: 11 s/p removal of left breast tissue solar power installer with I&D. Plan: - Pain well controlled with Tylenol, oxycodone, Toradol, - Tolerating a regular diet - Optimize nutrition with protein supplementation at every meal - Repeat blood cultures are negative at 3 days - Continue Eliquis 5mg BID for DVT prophylaxis - Mycobacterium abscesses: Appreciate Infectious Disease antibiotic management guidance: Cipro, Biaxin, Primaxin -infectious disease sent referral for [facility] for follow-up - MIRNA: Improving - [...] BMP in 1 week and follow-up withMD /TONGSMAN in renal clinic in 1 months time. [...] seroma status post removal of left breast solar power installer on November 27, 2023 Hypertension Edema Depression/anxiety [...] 8 (L) 01/31/2022 Please contact me at [phone] (Office) or [phone] (Answering service) with any questions. Please feel free to contact me through App [employer] Secure chat during the daytime hours, if no response after 5 minutes then call the answering service. Og Morton MD [facility] This note was created with the assistance of a speech-recognition program. Although the intention is to generate a document that actually reflects the content of the visit, no guarantees can be provided that every mistake has been identified and corrected by editing. * Amy Singh MD - 12/07/2023 7:02 PM EDT Images from the original note were not included. [facility] INTERNAL MEDICINE [facility] - 7 ONCOLOGY/STROKE [address] [place] [address] Hospital Medicine Progress Note Patient: Ike Flannery Date of : 1970 Room: [facility] PCP: AMEENA GARCIA Admission date: 12/02/2023 [...] tenderness or frontal sinus tenderness. Mouth/Throat: Lips: Finzel. Mouth: Mucous membranes are moist. Pharynx: Oropharynx [...] ringer's, 100 mL/hr As Needed: acetaminophen albuterol zinuswr-npxgchwpyrkaw-frrlfnzf calcium gluconate calcium gluconate calcium gluconate cyclobenzaprine [...] LIST Principal Problem: MIRNA (acute kidney injury) ([facility]) Active Problems: Hypertension Malignant neoplasm of lower-inner quadrant of right breast of female, estrogen receptor positive ([facility]) Cellulitis of left breast Infection of deep [...] seroma status post removal of left breast solar power installer on November 27, 2023 Hypertension Edema Depression/anxiety [...] 8 (L) 01/31/2022 Please contact me at [phone] (Office) or [phone] (Answering service) with any questions. Please feel free to contact me through [employer] Secure chat during the daytime hours, if no response after 5 minutes then call the answering service. 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 New rash Acute kidney [...] 60 min Stress: Stress Concern Present (02/27/2022) [place] [employer] - Occupational Stress Questionnaire [...] 129/79 Pulse: 90 76 80 Resp: 15 Temp: (!) 39.2 C (102.6 F) 36.7 [...] Value Units Date/Time Resp Pathogens Panel/SARS CoV-2 [[id number]] Collected: 12/05/23 1158 Specimen: Nasopharynx Updated: 12/05/23 [...] COV 2 Not Detected Blood culture #2 [[id number]] Collected: 12/05/23 1040 Specimen: Blood Updated: 12/06/23 1508 Culture NO GROWTH 1 DAY Blood culture #1 [[id number]] Collected: 12/05/23 1031 Specimen: Blood Updated: 12/06/23 1507 Culture NO GROWTH 1 DAY Urine culture [[id number]] Collected: 12/02/23 2305 Specimen: Urine, Clean Catch Midstream Updated: 12/04/23 0709 Culture NO GROWTH AT <1000 CFU/mL Blood culture [[id number]] Collected: 12/02/23 2231 Specimen: Blood, Line Draw Updated: 12/07/23 0815 Specimen Notes SUBOPTIMAL VOLUME OF BLOOD COLLECTED, RESULTS MAY BE AFFECTED. Culture NO GROWTH 4 DAYS Blood culture [[id number]] Collected: 12/02/23 2213 Specimen: Blood, Line Draw [...] Please call with questions. Gino Flower APRN, PLATE CONDITIONER [phone] This note was completed using a voice construction ironworker system. Every effort was made to ensure accuracy. However, inadvertent computerized construction ironworker errors may be present. Gino Flower APRN-PLATE CONDITIONER 12/07/23 1113 I, Carlene Noguera MD, personally performed isuh-ty-ddnk diagnostic evaluation on this patient I reviewed and performed all the ross component of the patient visit I reviewed CELINA history, exam and MDM - Carlene Noguera MD 12/07/23 12:53 PM * Nikki Rand RPH - 12/07/2023 9:28 AM EDT [facility] Department of Pharmacy Pharmacist to Physician Communication The dose of ciprofloxacin for SSTI has been changed to 500 mg every 12 hours per the [facility] approved renal dosing guidelines, based on an estimated creatinine clearance is 35.1 mL/min (A) (by C-G formula based on SCr of 2.07 mg/dL (H)). Thank you, Nikki Rand RPH * Shereen Smallwood PA-C - 12/07/2023 8:13 AM EDT Images from the original note were not included. [facility] [address] [place] [address] Office Jhon Gross MD, PhD Marisela Cuevas, RESTAURANT ASSISTANT MANAGER-PLATE CONDITIONER Shereen Smallwood PA-C Plastic Surgery Inpatient Progress [...] Value Units Date/Time Resp Pathogens Panel/SARS CoV-2 [[id number]] Collected: 12/05/23 1158 Specimen: Nasopharynx Updated: 12/05/23 [...] COV 2 Not Detected Blood culture #2 [[id number]] Collected: 12/05/23 1040 Specimen: Blood Updated: 12/07/23 1508 Culture NO GROWTH 2 DAYS Blood culture #1 [[id number]] Collected: 12/05/23 1031 Specimen: Blood Updated: 12/07/23 1507 Culture NO GROWTH 2 DAYS Urine culture [[id number]] Collected: 12/02/23 2305 Specimen: Urine, Clean Catch Midstream Updated: 12/04/23 0709 Culture NO GROWTH AT <1000 CFU/mL Blood culture [[id number]] Collected: 12/02/23 2231 Specimen: Blood, Line Draw Updated: 12/08/23 0817 Specimen Notes SUBOPTIMAL VOLUME OF BLOOD COLLECTED, RESULTS MAY BE AFFECTED. Culture NO GROWTH 5 DAYS Blood culture [[id number]] Collected: 12/02/23 2213 Specimen: Blood, Line Draw [...] with treatment. INÉS PAYNE MD, PhD [facility] ' Shereen Smallwood PA-C 12/08/23 1124 * Elayne Chow MD - 12/06/2023 10:03 AM EDT Images from the original note were not included. [facility]IC[facility] - 7 ONCOLOGY/STROKE [address] [facility] [address] Hospital Medicine Progress Note Patient: Ike Flannery Date of : 1970 Room: [facility] PCP: AMEENA GARCIA Admission date: 12/02/2023 [...] chills and was sent by infectious disease [facility] Interval History: Status: improved. No overnight [...] tenderness or frontal sinus tenderness. Mouth/Throat: Lips: Finzel. Mouth: Mucous membranes are moist. Pharynx: Oropharynx [...] mL/hr (12/05/23 0641) As Needed: acetaminophen albuterol rgtldks-figtohmcasqsz-bkdmwexu calcium gluconate calcium gluconate calcium gluconate cyclobenzaprine [...] LIST Principal Problem: MIRNA (acute kidney injury) ([facility]) Active Problems: Hypertension Malignant neoplasm of lower-inner quadrant of right breast of female, estrogen receptor positive ([facility]) Cellulitis of left breast Infection of deep [...] electrolytes per protocol and scale Liliane Valle APRN-[facility] 12/06/23 1436 Physician Attestation I personally performed [...] 8 -- 9 BUN mg/dL 21 -- -- 24* -- 25* -- 27* [...] 12/04/23 0305 12/03/23 1737 12/03/23 1628 12/03/23 03512/02/23 2305 12/02/23 221 TOTAL PROTEIN g/dL 5.8* 5.6* 5.4* -- [...] seroma status post removal of left breast solar power installer on November 27, 2023 Hypertension Edema Depression/anxiety [...] For questions please call: Answering Service at [phone] Or Office at [phone] This note was created with the assistance [...] : 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 installer-culture growing acid-fast bacilli Acute kidney injury History [...] 60 min Stress: Stress Concern Present (02/27/2022) [place] [employer] - Occupational Stress Questionnaire [...] Value Units Date/Time Resp Pathogens Panel/SARS CoV-2 [[id number]] Collected: 12/05/23 1158 Specimen: Nasopharynx Updated: 12/05/23 [...] COV 2 Not Detected Blood culture #2 [[id number]] Resulted: 12/05/23 1041 Specimen: Blood, Peripheral Draw Updated: 12/05/23 1041 Blood culture #1 [[id number]] Resulted: 12/05/23 1032 Specimen: Blood, Peripheral Draw Updated: 12/05/23 1032 Urine culture [[id number]] Collected: 12/02/23 2305 Specimen: Urine, Clean Catch Midstream Updated: 12/04/23 0709 Culture NO GROWTH AT <1000 CFU/mL Blood culture [[id number]] Collected: 12/02/23 2231 Specimen: Blood, Line Draw Updated: 12/05/23 0815 Specimen Notes SUBOPTIMAL VOLUME OF BLOOD COLLECTED, RESULTS MAY BE AFFECTED. Culture NO GROWTH 2 DAYS Blood culture [[id number]] Collected: 12/02/23 2213 Specimen: Blood, Line Draw [...] This note was completed using a voice construction ironworker system. Every effort was made to ensure accuracy. However, inadvertent computerized construction ironworker errors may be present. * Dorothy Morales, [facility] - 12/05/2023 6:53 PM EDT [...] Hollis PA-C 5 mg at 12/05/23 0904 jdodfpz-suwazapukbgov-naestuzd (EXCEDRIN MIGRAINE) 250-250-65 mg per tablet 2 tablet 2 tablet oral Q6H PRN Liliane Valle APRN-[facility]PER[facility]ZA 2 tablet at 12/04/23 0809 calcium gluconate [...] tablet 500 mg 500 mg oral Q24H [facility] Carlene Noguera MD 500 mg at 12/05/23 0904 clarithromycin (BIAXIN) tablet 500 mg 500 mg oral Q12H [facility] Carlene Noguera MD 500 mg at [...] Once Carlene Noguera MD 220 mL/hr at 12/05/231835 100 mg at 12/05/231835 Followed by [START ON 12/06/2023] tigecycline (TYGACIL) [...] from the original note were not included. [facility] INTER[facility]ICINE [facility] - ONCOLOGY/STROKE [address] [place] [address] Hospital Medicine Progress Note Patient: Ike Flannery Date of : 1970 Room: [facility] PCP: AMEENA GARCIA Admission date: 12/02/2023 [...] tenderness or frontal sinus tenderness. Mouth/Throat: Lips: Finzel. Mouth: Mucous membranes are moist. Pharynx: Oropharynx [...] mL/hr (12/05/23 0641) As Needed: acetaminophen albuterol oifmlbx-zbfsnyswbgswz-ksbjwsyl calcium gluconate calcium gluconate calcium gluconate cyclobenzaprine [...] LIST Principal Problem: MIRNA (acute kidney injury) ([facility]) Active Problems: Hypertension Malignant neoplasm of lower-inner quadrant of right breast of female, estrogen receptor positive ([facility]) Cellulitis of left breast Infection of deep [...] Abx changes made per ID. Liliane Valle, RESTAURANT ASSISTANT MANAGER-PLATE CONDITIONER 12/05/23 1527 Physician Attestation I personally performed [...] Lab Units 12/05/23 0545 12/04/23 03012/03/23 1737 12/03/23162712/03/2334912/02/23230412/02/232212 TOTAL PROTEIN g/dL 5.6* 5.4* -- 5.4* [...] last 7 days Lab Units 12/05/2354412/04/2330412/03/2334912/02/23221211/30/23 0930 WBC X10E9/L 3.9* 4.3 5.8 7.8 [...] seroma status post removal of left breast solar power installer on November 27, 2023 Hypertension Edema Depression/anxiety [...] For questions please call: Answering Service at [phone] Or Office at [phone] This note was created with the assistance of a speech-recognition program. Although the intention is to generate a document that actually reflects the content of the visit, no guarantees can be provided that every mistake has been identified and corrected by editing. * Elayne Chow MD - 12/04/2023 3:39 PM EDT Images from the original note were not included. [facility] INTER[facility]ICINE [facility] - ONCOLOGY/STROKE [address] [facility] [address] Hospital Medicine Progress Note Patient: Ike Flannery Date of : 1970 Room: [facility] PCP: AMEENA GARCIA Admission date: 12/02/2023 [...] chills and was sent by infectious disease [facility] Interval History: Status: improved. No overnight [...] tenderness or frontal sinus tenderness. Mouth/Throat: Lips: Finzel. Mouth: Mucous membranes are moist. Pharynx: Oropharynx [...] mL/hr (12/04/23 1212) As Needed: acetaminophen albuterol qvcztsh-bbdtbublskocy-gihxhhdi calcium gluconate calcium gluconate calcium gluconate cyclobenzaprine [...] Protein Urine Random 130 (H) <120 mg/L U/Pro/Senior Manufacturing Test Engineer Ratio Calc 0.30 (H) <0.2 Sodium, urine, [...] and the plan . MD Liliane Madrid, RESTAURANT ASSISTANT MANAGER-PLATE CONDITIONER 12/04/23 9878 * Carlene Noguera MD - 12/04/2023 11:27 AM EDT Images from the original note were not included. 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 installer-culture growing acid-fast bacilli Acute kidney injury History [...] 60 min Stress: Stress Concern Present (02/27/2022) [place] [employer] - Occupational Stress Questionnaire [...] U/L 9 10 12 AST U/L 15 24 Lab Results Component Value Date CRP 2.6 (H) 11/26/2023 Lab Results Component Value Date SEDRATE 30 11/26/2023 Cultures: Microbiology Results Procedure Component Value Units Date/Time Urine culture [[id number]] Collected: 12/02/23 2305 Specimen: Urine, Clean Catch Midstream Updated: 12/04/23 0709 Culture NO GROWTH AT <1000 CFU/mL Blood culture [[id number]] Collected: 12/02/23 2231 Specimen: Blood, Line Draw Updated: 12/04/23 0815 Specimen Notes SUBOPTIMAL VOLUME OF BLOOD COLLECTED, RESULTS MAY BE AFFECTED. Culture NO GROWTH 1 DAY Blood culture [[id number]] Collected: 12/02/23 2213 Specimen: Blood, Line Draw Updated: 12/04/23 0815 Specimen Notes SUBOPTIMAL VOLUME OF BLOOD COLLECTED, RESULTS MAY BE AFFECTED. Culture NO GROWTH 1 DAY Anaerobic culture [[id number]] Collected: 11/27/23 1548 Specimen: Body Fluid from Breast, Left Updated: 12/02/23 0851 Specimen Notes SPECIMEN A Culture NO GROWTH 5 DAYS Fungal culture includes fungal smear [[id number]] Collected: 11/27/23 1548 Specimen: Body Fluid from Breast, Left Updated: 11/28/23 0702 Specimen Notes SPECIMEN A Fungal smear -- NO FUNGAL ELEMENTS SEEN ON DIRECT SMEAR Culture PENDING AFB culture concentrated includes AFB smear [[id number]] (Abnormal) Collected: 11/27/23 1548 Specimen: Body Fluid from Breast, Left Updated: 12/01/23 1056 Specimen Notes SPECIMEN A AFB Smear NO ACID FAST BACILLI (CONCENTRATED SMEAR) Culture ACID FAST BACILLI ISOLATED Aspirate culture includes gram stain [[id number]] (Abnormal) Collected: 11/27/23 1548 Specimen: Aspirate Atr [...] This note was completed using a voice construction ironworker system. Every effort was made to ensure accuracy. However, inadvertent computerized construction ironworker errors may be present. * DAVID Tinajero [...] right breast of female, estrogen receptor positive ([facility]) S/P breast reconstruction, bilateral Cellulitis of left breast MIRNA (acute kidney injury) ([facility]) Past Medical History: Past Medical History: Diagnosis Date Breast cancer ([facility]) 2023 mammary carcinoma Deep vein thrombosis ([facility]) 09/18/2023 Left calf Hypertension Knee pain PONV (postoperative nausea and vomiting) Port-A-Cath in place 05/13/2023 Visual impairment Glasses Past Surgical History: Past Surgical History: Procedure Laterality Date ARTHROSCOPIC REPAIR ACL Right 2006 ARTHROSCOPIC REPAIR ACL Left 08/26/2021 BREAST BIOPSY Right 2023 mammary carcinoma EXCISION LYMPH NODE AXILLARY DISSECTION Right 10/28/2023 Performed by Christy He MD at [facility] HYSTERECTOMY IMMEDIATE BREAST RECONSTRUCTION WITH TISSUE SUPERVISOR CURED MEATS PLACEMENT Bilateral 10/28/2023 Performed by Jhon Gross MD at [facility] INCISION DRAINAGE BREAST Left 11/27/2023 Performed by Jhon Gross MD at [facility] MAGNETIC SEED LOCALIZATION EXCISION/BIOPSY MASS BREAST (MAG SEED LOCALIZED TARGETED DISSECTION FOR RETRIEVAL OF PREVIOUSLY CLIPPED LYMPH NODE) Right 10/28/2023 Performed by Christy He MD at [facility] MASTECTOMY BREAST SIMPLE RISK REDUCING SKIN SPARING Left 10/28/2023 Performed by Christy He MD at [facility] MASTECTOMY BREAST SIMPLE SKIN SPARING Right 10/28/2023 Performed by Christy He MD at [facility] MENISCECTOMY Bilateral 2022 PORTACATH PLACEMENT Left left chest REMOVAL SUPERVISOR CURED MEATS TISSUE BREAST Left 11/27/2023 Performed by Jhon Gross MD at [facility] RIGHT AXILLARY PROPHYLACTIC BYPASS LYMPHOVENOUS Right 10/28/2023 Performed by Jhon Gross MD at [facility] TONSILLECTOMY AND ADENOIDECTOMY Age 3 TUMOR [...] VERYLOWLIP 16 01/31/2022 No results found for: [id number] No results found for: FOLATE No results [...] Hollis PA-C 5 mg at 12/04/23 0809 ozojqbt-trkyaplgesvcv-vtzbeabp (EXCEDRIN MIGRAINE) 250-250-65 mg per tablet 2 tablet 2 tablet oral Q6H PRN Liliane Valle APRN-PLATE CONDITIONER 2 tablet at 12/04/23 08 calcium gluconate 3,000 mg in sodium chloride [...] RADHA Noguera MD 500 mg at 12/04/23 08 clarithromycin (BIAXIN) tablet 500 mg 500 mg [...] Skin (per nursing flow sheets): Skin Color: Finzel; Pale (12/04/23804) Skin Temp: Warm; Dry (12/04/23804) [...] Scale, 12/02) Usual Body Weight: see above [place] Body Weight: 70.4 kg Percent [place] Body Weight: 138% Weight Changes: Weight fluctuations noted. With weight loss of 18 lbs x 5 months, 8% Body Mass Index: Body mass index is 29.79 kg/m . BMI Category: Pre-obese (25.00- 29.99) Comparative Standards: Estimated Energy Needs: 1502-2353 kcals daily. Method and weight used: 25-30 kcal/kg IBW Estimated Protein Needs: 84-141 grams daily. Method and weight used: 1.2-2 g protein/kg IBW Estimated Fluid Needs: 0515-7598 ml daily. Method weight used: 25-30 ml/kg [...] ofcare. Jessenia Key RD,LD Clinical Dietitian Office: [phone] * Epifanio Henry MD - 12/04/2023 9:41 [...] from last 7 days Lab Units 12/04/2330412/03/23 1737 12/03/23 16212/03/2334912/02/23 23012/02/23 221 TOTAL PROTEIN g/dL 5.4* -- 5.4* [...] from last 7 days Lab Units 12/04/2330412/03/23 03512/02/23221211/30/23 0930 WBC X10E9/L 4.3 5.8 7.8 6.5 HEMOGLOBIN g/dL 7.3* 8.0* 9.1* 8.8* HEMATOCRIT % 21.2* 22.9* 26.0* 25.2* PLATELETS X10E9/L 201 233 279 294 Lab Results Component Value Date IRON 43 (L) 01/31/2022 TIBC 519 (H) 01/31/2022 FERRITIN 8 (L) 01/31/2022 IRONSAT 8 (L) 01/31/2022 Results from last 7 days Lab Units 12/04/2330412/03/23 03512/02/23221211/30/23 0930 GLUCOSE mg/dL 91 103* 106* 84 [...] seroma status post 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 Although the intention is to generate a document that actually reflects the content of the visit, no guarantees can be provided that every mistake has been identified and corrected by editing. * Shereen Smallwood PA-C - 12/04/2023 8:59 AM EDT Images from the original note were not included. [facility] [address] [place] [address] Office Jhon Gross MD, PhD Marisela Cuevas, RESTAURANT ASSISTANT MANAGER-PLATE CONDITIONER Shereen Smallwood PA-C Plastic Surgery Inpatient Progress [...] Procedure Component Value Units Date/Time Urine culture [[id number]] Collected: 12/02/23 2305 Specimen: Urine, Clean Catch Midstream Updated: 12/04/23 0709 Culture NO GROWTH AT <1000 CFU/mL Blood culture [[id number]] Collected: 12/02/23 2231 Specimen: Blood, Line Draw Updated: 12/04/23 0815 Specimen Notes SUBOPTIMAL VOLUME OF BLOOD COLLECTED, RESULTS MAY BE AFFECTED. Culture NO GROWTH 1 DAY Blood culture [[id number]] Collected: 12/02/23 2213 Specimen: Blood, Line Draw Updated: 12/04/23 0815 Specimen Notes SUBOPTIMAL VOLUME OF BLOOD COLLECTED, RESULTS MAY BE AFFECTED. Culture NO GROWTH 1 DAY Anaerobic culture [[id number]] Collected: 11/27/23 1548 Specimen: Body Fluid from Breast, Left Updated: 12/02/23 0851 Specimen Notes SPECIMEN A Culture NO GROWTH 5 DAYS Fungal culture includes fungal smear [[id number]] Collected: 11/27/23 1548 Specimen: Body Fluid from Breast, Left Updated: 11/28/23 0702 Specimen Notes SPECIMEN A Fungal smear -- NO FUNGAL ELEMENTS SEEN ON DIRECT SMEAR Culture PENDING AFB culture concentrated includes AFB smear [[id number]] (Abnormal) Collected: 11/27/23 1548 Specimen: Body Fluid from Breast, Left Updated: 12/01/23 1056 Specimen Notes SPECIMEN A AFB Smear NO ACID FAST BACILLI (CONCENTRATED SMEAR) Culture ACID FAST BACILLI ISOLATED Aspirate culture includes gram stain [[id number]] (Abnormal) Collected: 11/27/23 1548 Specimen: Aspirate Atr Updated: 12/01/23 1544 Specimen Notes SPECIMEN A Gram Stain Result >25 WHITE BLOOD CELLS/LPF 0 SQUAMOUS EPITHELIAL CELLS/LPF NO ORGANISMS SEEN Culture MODERATE ACID FAST BACILLI ISOLATED REPORT UPDATED GROWTH OBSERVED AT 48 HOURS Assessment: Ike Flannery is a 53 y.o. 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 Patient was initially referred to [facility] however this is out of network for her insurance, referrals were sent to [facility], [facility] and [facility]. [facility] is out of network, however [facility] could not get her in until December or January. Currently waiting to hear back from [facility]. - patient transitioned to oral clindamycin and Cipro for antibiotic coverage and MIRNA secondary to vancomycin. All questions were answered to her satisfaction. She was counseled regarding my impressions, instructions for management and the importance of compliance with treatment. INÉS PAYNE MD, PhD [facility] Shereen Smallwood PA-C 12/04/23 0906 * Shereen Smallwood PA-C - 12/03/2023 8:58 AM EDT Images from the original note were not included. [facility] [address] [place] [address] Office Jhon Gross MD, PhD Marisela Cuevas, RESTAURANT ASSISTANT MANAGER-PLATE CONDITIONER Shereen Smallwood PA-C Plastic Surgery Inpatient Progress [...] Procedure Component Value Units Date/Time Urine culture [[id number]] Collected: 12/02/23 2341 Specimen: Urine Updated: 12/03/23828 Blood culture [[id number]] Collected: 12/02/232235 Specimen: Blood, Peripheral Draw Updated: 12/02/232235 Blood culture [[id number]] Collected: 12/02/232235 Specimen: Blood, Peripheral Draw Updated: 12/02/232235 Anaerobic culture [[id number]] Collected: 11/27/23 154 Specimen: Body Fluid from Breast, Left Updated: 12/02/23 0851 Specimen Notes SPECIMEN A Culture NO GROWTH 5 DAYS Fungal culture includes fungal smear [[id number]] Collected: 11/27/23 154 Specimen: Body Fluid from Breast, Left Updated: 11/28/23 0702 Specimen Notes SPECIMEN A Fungal smear -- NO FUNGAL ELEMENTS SEEN ON DIRECT SMEAR Culture PENDING AFB culture concentrated includes AFB smear [[id number]] (Abnormal) Collected: 11/27/23 1548 Specimen: Body Fluid from Breast, Left Updated: 12/01/23 1056 Specimen Notes SPECIMEN A AFB Smear NO ACID FAST BACILLI (CONCENTRATED SMEAR) Culture ACID FAST BACILLI ISOLATED Aspirate culture includes gram stain [[id number]] (Abnormal) Collected: 11/27/23 1548 Specimen: Aspirate Atr Updated: 12/01/23 1544 Specimen Notes SPECIMEN A Gram Stain Result >25 WHITE BLOOD CELLS/LPF 0 SQUAMOUS EPITHELIAL CELLS/LPF NO ORGANISMS SEEN Culture MODERATE ACID FAST BACILLI ISOLATED REPORT UPDATED GROWTH OBSERVED AT 48 HOURS Mrsa Pcr nasal swab [[id number]] Collected: 11/27/23 0020 Specimen: Nasal Updated: 11/27/23 0957 Mrsa PCR Negative Blood culture [[id number]] Collected: 11/26/23 1715 Specimen: Blood Updated: 12/01/232007 Culture NO GROWTH 5 DAYS Assessment: Ike Flannery is a 53 y.o. 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 - patient with positive id from her office aspirate as well as intraoperative cultures. Infectious Disease was reaching out for referral to [facility]. Patient lives in [place], wondering if [facility] would be an option. - infectious [...] 12/04/23 0858 * Nathaniel Narvaez [facility] - 12/02/2023 11:19 PM EDT [...] serum creatinine please re-consult. documented in this [facility]10-09-2024 Miscellaneous Notes* Telephone Encounter - Nabila Mora CMA - 12/09/2023 3:43 PM EDT IKE FLANNERY (Ross: [id number]) [facility] your [facility]. You may close this dialog, return to your dashboard, and perform other tasks. To check for an update later, open this request again from your dashboard. If [employer] has not replied to your request within 24 hours please contact [employer] at (TTY ) PA form to be scanned into chart. documented in this [facility]10-09-2024 Telephone encounter Note* Telephone Encounter - Nabila Mora CMA - 12/09/2023 3:43 PM EDT IKE FLANNERY (Ross: [id number]) [employer] has not yet replied to your PA request. You may close this dialog, return to your dashboard, and perform other tasks. To check for an update later, open this request again from your dashboard. If [employer] has not replied to your request within 24 hours please contact [employer] at (TTY ) PA form to be scanned into chart. [facility]10-09-2024 Plan of care note* Plan of Care - Kahlil Gregorio RN - 12/09/2023 3:21 PM EDT Patient remains free of falls and injuries. Patient also continues to deny any pain. [facility]10-09-2024 Miscellaneous Notes* Plan of Care - [...] be free from fall Description: Interventions: 1. Datto to environment 2. Hourly rounds addressing the [...] non-skid footwear 11. Teach patient and patient telephone service representative to maintain environment for safety and engage in all aspects of fall prevention program Outcome: Progressing Note: Evaluation of progress towards goal: Pt remains free from falls. Will continue to provide a safe environment. Problem: Pain Goal: Patient goal is pain score less than 4, able to rest, and participant in treatment plan as appropriate Description: INTERVENTIONS: 1. Encourage patient or legal telephone service representative to report early pain and ask [...] per policy 9. Teach patient or legal telephone service representative interventions for comforting Outcome: Progressing Note: [...] at the bedside 7. Instruct patient/ patient telephone service representative about use of safety devices 8. Include patient/ patient telephone service representative in decisions related to safety Outcome: [...] hygiene technique 7. Identify and instruct patient/patient telephone service representative in use of appropriate isolation precautionsfor identified infection/symptoms 8. Provide and discuss with patient/patient telephone service representative on educational MDRO sheet 9. Encourage and monitor nutritional status daily and consult assistant technician if indicated 10. Implement neutropenic guidelines as needed 11. Review exposure to history of communicable disease and recent travel history on admission 12. Encourage annual influenza vaccine 13. Encourage pneumonia vaccine Outcome: Progressing Note: Evaluation of progress towards goal: pt remains afebrile, currently on antibiotics Problem: Knowledge Deficit Goal: Patient/patient telephone service representative demonstrates understanding of disease process, treatment [...] Collaborate with ancillary departments 14. Include patient/patient telephone service representative in decisions related to anxiety Outcome: [...] providing care 6. Collaborate with pastoral/spiritual care, transition social worker, mental health counselor as needed. 7. Instruct patient on diversional activities such as physical activity, distraction, and deep breathing exercises to assist with coping 8. Involve patient's telephone service representative in care Outcome: Progressing Note: Evaluation [...] hydration as ordered 5. Instruct patient/ legal telephone service representative on nutrition/diet; fluid/hydration restrictions as appropriate Outcome: Progressing Note: Evaluation of progress towards goal: electrolytes are continuing to be monitored and replacedper protocol * Plan of Care - Claudia Masterson LPN - 12/08/2023 3:27 PM EDT Problem: Low Risk Fall Score Description: Pickens Fall Score of 0 - [address] [facility] Assessment Goal: Patient should be free from fall Description: Interventions: 1. Datto to environment 2. Hourly rounds addressing the [...] non-skid footwear 11. Teach patient and patient telephone service representative to maintain environment for safety and engage in all aspects of fall prevention program Outcome: Progressing Note: Evaluation of progress towards goal: pt remains free from falls at this time. Problem: Pain Goal: Patient goal is pain score less than 4, able to rest, and participant in treatment plan as appropriate Description: INTERVENTIONS: 1. Encourage patient or legal telephone service representative to report early pain and ask [...] per policy 9. Teach patient or legal telephone service representative interventions for comforting Outcome: Progressing Note: [...] at the bedside 7. Instruct patient/ patient telephone service representative about use of safety devices 8. Include patient/ patient telephone service representative in decisions related to safety Outcome: [...] hygiene technique 7. Identify and instruct patient/patient telephone service representative in use of appropriate isolation precautionsfor identified infection/symptoms 8. Provide and discuss with patient/patient telephone service representative on educational MDRO sheet 9. Encourage and monitor nutritional status daily and consult assistant technician if indicated 10. Implement neutropenic guidelines as needed 11. Review exposure to history of communicable disease and recent travel history on admission 12. Encourage annual influenza vaccine 13. Encourage pneumonia vaccine Outcome: Progressing Note: Evaluation of progress towards goal: pt remains afebrile at this time. Problem: Knowledge Deficit Goal: Patient/patient telephone service representative demonstrates understanding of disease process, treatment [...] Collaborate with ancillary departments 14. Include patient/patient telephone service representative in decisions related to anxiety Outcome: [...] providing care 6. Collaborate with pastoral/spiritual care, transition social worker, mental health counselor as needed. 7. Instruct patient on diversional activities such as physical activity, distraction, and deep breathing exercises to assist with coping 8. Involve patient's telephone service representative in care Outcome: Progressing Note: Evaluation [...] hydration as ordered 5. Instruct patient/ legal telephone service representative on nutrition/diet; fluid/hydration restrictions as appropriate Outcome: Progressing Note: Evaluation of progress towards goal: electrolytes replaced within normal limits at this time. * Discharge Planning Note - Mariah Starr RN - 12/08/2023 3:23 PM EDT DISCHARGE PLANNING NOTE Patient discussed in DTRs. Barrier to discharge is ID plan. 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 Task sent to [facility] to get appointment set up. Plan is for patient to be discharged on Primaxin IV - sent msg olga sandoval. - MARIAH STARR RN 12/08/23 3:26 PM Primaxin IV is 100% covered. Script and prior auth sent to [facility]. Medication will be delivered to the patient's home between 5-9pm. Spoke with Skye at [facility] and they have the standing order for [...] be free from fall Description: Interventions: 1. Datto to environment 2. Hourly rounds addressing the [...] non-skid footwear 11. Teach patient and patient telephone service representative to maintain environment for safety and engage in all aspects of fall prevention program Outcome: Progressing Note: Evaluation of progress towards goal: Pt remains free from falls. Will continue to provide a safe environment. Problem: Pain Goal: Patient goal is pain score less than 4, able to rest, and participant in treatment plan as appropriate Description: INTERVENTIONS: 1. Encourage patient or legal telephone service representative to report early pain and ask [...] per policy 9. Teach patient or legal telephone service representative interventions for comforting Outcome: Progressing Note: [...] at the bedside 7. Instruct patient/ patient telephone service representative about use of safety devices 8. Include patient/ patient telephone service representative in decisions related to safety Outcome: [...] hygiene technique 7. Identify and instruct patient/patient telephone service representative in use of appropriate isolation precautionsfor identified infection/symptoms 8. Provide and discuss with patient/patient telephone service representative on educational MDRO sheet 9. Encourage and monitor nutritional status daily and consult assistant technician if indicated 10. Implement neutropenic guidelines as needed 11. Review exposure to history of communicable disease and recent travel history on admission 12. Encourage annual influenza vaccine 13. Encourage pneumonia vaccine Outcome: Progressing Note: Evaluation of progress towards goal: pt remains afebrile at this time, antibiotics are administered as ordered Problem: Knowledge Deficit Goal: Patient/patient telephone service representative demonstrates understanding of disease process, treatment [...] Collaborate with ancillary departments 14. Include patient/patient telephone service representative in decisions related to anxiety Outcome: [...] providing care 6. Collaborate with pastoral/spiritual care, transition social worker, mental health counselor as needed. 7. Instruct patient on diversional activities such as physical activity, distraction, and deep breathing exercises to assist with coping 8. Involve patient's telephone service representative in care Outcome: Progressing Note: Evaluation [...] hydration as ordered 5. Instruct patient/ legal telephone service representative on nutrition/diet; fluid/hydration restrictions as appropriate [...] Description: INTERVENTIONS: 1. Encourage patient or legal telephone service representative to report early pain and ask [...] per policy 9. Teach patient or legal telephone service representative interventions for comforting Outcome: Progressing Note: [...] at the bedside 7. Instruct patient/ patient telephone service representative about use of safety devices 8. Include patient/ patient telephone service representative in decisions related to safety Outcome: [...] hygiene technique 7. Identify and instruct patient/patient telephone service representative in use of appropriate isolation precautionsfor identified infection/symptoms 8. Provide and discuss with patient/patient telephone service representative on educational MDRO sheet 9. Encourage and monitor nutritional status daily and consult assistant technician if indicated 10. Implement neutropenic guidelines as needed 11. Review exposure to history of communicable disease and recent travel history on admission 12. Encourage annual influenza vaccine 13. Encourage pneumonia vaccine Outcome: Progressing Note: Evaluation of progress towards goal: pt afebrile. WBC 2.7 Problem: Knowledge Deficit Goal: Patient/patient telephone service representative demonstrates understanding of disease process, treatment [...] be free from fall Description: Interventions: 1. Datto to environment 2. Hourly rounds addressing the [...] non-skid footwear 11. Teach patient and patient telephone service representative to maintain environment for safety and engage in all aspects of fall prevention program Outcome: Progressing Note: Evaluation of progress towards goal: Pt remains free from falls. Will continue to provide a safe environment. Problem: Pain Goal: Patient goal is pain score less than 4, able to rest, and participant in treatment plan as appropriate Description: INTERVENTIONS: 1. Encourage patient or legal telephone service representative to report early pain and ask [...] per policy 9. Teach patient or legal telephone service representative interventions for comforting Outcome: Progressing Note: [...] at the bedside 7. Instruct patient/ patient telephone service representative about use of safety devices 8. Include patient/ patient telephone service representative in decisions related to safety Outcome: [...] hygiene technique 7. Identify and instruct patient/patient telephone service representative in use of appropriate isolation precautionsfor identified infection/symptoms 8. Provide and discuss with patient/patient telephone service representative on educational MDRO sheet 9. Encourage and monitor nutritional status daily and consult assistant technician if indicated 10. Implement neutropenic guidelines as needed 11. Review exposure to history of communicable disease and recent travel history on admission 12. Encourage annual influenza vaccine 13. Encourage pneumonia vaccine Outcome: Progressing Note: Evaluation of progress towards goal: patient remains on antibiotics at this time, monitoring for s/s of infection Problem: Knowledge Deficit Goal: Patient/patient telephone service representative demonstrates understanding of disease process, treatment [...] Collaborate with ancillary departments 14. Include patient/patient telephone service representative in decisions related to anxiety Outcome: [...] providing care 6. Collaborate with pastoral/spiritual care, transition social worker, mental health counselor as needed. 7. Instruct patient on diversional activities such as physical activity, distraction, and deep breathing exercises to assist with coping 8. Involve patient's telephone service representative in care Outcome: Progressing Note: Evaluation [...] hydration as ordered 5. Instruct patient/ legal telephone service representative on nutrition/diet; fluid/hydration restrictions as appropriate Outcome: Progressing Note: Evaluation of progress towards goal: electrolytes are within range at this time * Plan of Care - Corrina Richardson RN - 12/06/2023 9:51 AM EDT Problem: Pain Goal: Patient goal is pain score less than 4, able to rest, and participant in treatment plan as appropriate Description: INTERVENTIONS: 1. Encourage patient or legal telephone service representative to report early pain and ask [...] per policy 9. Teach patient or legal telephone service representative interventions for comforting Outcome: Progressing Note: [...] at the bedside 7. Instruct patient/ patient telephone service representative about use of safety devices 8. Include patient/ patient telephone service representative in decisions related to safety Outcome: [...] hygiene technique 7. Identify and instruct patient/patient telephone service representative in use of appropriate isolation precautionsfor identified infection/symptoms 8. Provide and discuss with patient/patient telephone service representative on educational MDRO sheet 9. Encourage and monitor nutritional status daily and consult assistant technician if indicated 10. Implement neutropenic guidelines as needed 11. Review exposure to history of communicable disease and recent travel history on admission 12. Encourage annual influenza vaccine 13. Encourage pneumonia vaccine Outcome: Progressing Note: Evaluation of progress towards goal: pt afebrile this AM. WBC 3.0 Positive Wound culture FastBacili Problem: Knowledge Deficit Goal: Patient/patient telephone service representative demonstrates understanding of disease process, treatment [...] be free from fall Description: Interventions: 1. Datto to environment 2. Hourly rounds addressing the [...] non-skid footwear 11. Teach patient and patient telephone service representative to maintain environment for safety and engage in all aspects of fall prevention program Outcome: Progressing Note: Evaluation of progress towards goal: pt remains free from falls. Pt independent in room. Problem: Pain Goal: Patient goal is pain score less than 4, able to rest, and participant in treatment plan as appropriate Description: INTERVENTIONS: 1. Encourage patient or legal telephone service representative to report early pain and ask [...] per policy 9. Teach patient or legal telephone service representative interventions for comforting Outcome: Progressing Note: [...] at the bedside 7. Instruct patient/ patient telephone service representative about use of safety devices 8. Include patient/ patient telephone service representative in decisions related to safety Outcome: [...] hygiene technique 7. Identify and instruct patient/patient telephone service representative in use of appropriate isolation precautionsfor identified infection/symptoms 8. Provide and discuss with patient/patient telephone service representative on educational MDRO sheet 9. Encourage and monitor nutritional status daily and consult assistant technician if indicated 10. Implement neutropenic guidelines as needed 11. Review exposure to history of communicable disease and recent travel history on admission 12. Encourage annual influenza vaccine 13. Encourage pneumonia vaccine Outcome: Progressing Note: Evaluation of progress towards goal: pt continues with intermittent fevers. Prn meds available. Problem: Knowledge Deficit Goal: Patient/patient telephone service representative demonstrates understanding of disease process, treatment [...] hydration as ordered 5. Instruct patient/ legal telephone service representative on nutrition/diet; fluid/hydration restrictions as appropriate Outcome: Progressing Note: Evaluation of progress towards goal: monitoring pt's labs and electrolytes. Replacing when needed. * Plan of Care - Claudia Masterson, PACKING MACHINE [employer]EDER - 12/05/2023 1:17 PM EDT Problem: Low Risk Fall Score Description: Pickens Fall Score of 0 - 24 or indicated by [facility] Assessment Goal: Patient should be free from fall Description: Interventions: 1. Datto to environment 2. Hourly rounds addressing the [...] non-skid footwear 11. Teach patient and patient telephone service representative to maintain environment for safety and engage in all aspects of fall prevention program Outcome: Progressing Note: Evaluation of progress towards goal: pt free from falls at this time. Problem: Pain Goal: Patient goal is pain score less than 4, able to rest, and participant in treatment plan as appropriate Description: INTERVENTIONS: 1. Encourage patient or legal telephone service representative to report early pain and ask [...] per policy 9. Teach patient or legal telephone service representative interventions for comforting Outcome: Progressing Note: [...] at the bedside 7. Instruct patient/ patient telephone service representative about use of safety devices 8. Include patient/ patient telephone service representative in decisions related to safety Outcome: [...] hygiene technique 7. Identify and instruct patient/patient telephone service representative in use of appropriate isolation precautionsfor identified infection/symptoms 8. Provide and discuss with patient/patient telephone service representative on educational MDRO sheet 9. Encourage and monitor nutritional status daily and consult assistant technician if indicated 10. Implement neutropenic guidelines as needed 11. Review exposure to history of communicable disease and recent travel history on admission 12. Encourage annual influenza vaccine 13. Encourage pneumonia vaccine Outcome: Progressing Note: Evaluation of progress towards goal: pt continues to have intermittent fevers at this time. Problem: Knowledge Deficit Goal: Patient/patient telephone service representative demonstrates understanding of disease process, treatment [...] Collaborate with ancillary departments 14. Include patient/patient telephone service representative in decisions related to anxiety Outcome: [...] providing care 6. Collaborate with pastoral/spiritual care, transition social worker, mental health counselor as needed. 7. Instruct patient on diversional activities such as physical activity, distraction, and deep breathing exercises to assist with coping 8. Involve patient's telephone service representative in care Outcome: Progressing Note: Evaluation [...] hydration as ordered 5. Instruct patient/ legal telephone service representative on nutrition/diet; fluid/hydration restrictions as appropriate [...] be free from fall Description: Interventions: 1. Datto to environment 2. Hourly rounds addressing the [...] non-skid footwear 11. Teach patient and patient telephone service representative to maintain environment for safety and engage in all aspects of fall prevention program Outcome: Progressing Note: Evaluation of progress towards goal: pt remains free from falls. Pt independent in room. Problem: Pain Goal: Patient goal is pain score less than 4, able to rest, and participant in treatment plan as appropriate Description: INTERVENTIONS: 1. Encourage patient or legal telephone service representative to report early pain and ask [...] per policy 9. Teach patient or legal telephone service representative interventions for comforting Outcome: Progressing Note: [...] at the bedside 7. Instruct patient/ patient telephone service representative about use of safety devices 8. Include patient/ patient telephone service representative in decisions related to safety Outcome: [...] hygiene technique 7. Identify and instruct patient/patient telephone service representative in use of appropriate isolation precautionsfor identified infection/symptoms 8. Provide and discuss with patient/patient telephone service representative on educational MDRO sheet 9. Encourage and monitor nutritional status daily and consult assistant technician if indicated 10. Implement neutropenic guidelines as needed 11. Review exposure to history of communicable disease and recent travel history on admission 12. Encourage annual influenza vaccine 13. Encourage pneumonia vaccine Outcome: Progressing Note: Evaluation of progress towards goal: monitoring pt for s/s of infection. Hand hygiene performed. Problem: Knowledge Deficit Goal: Patient/patient telephone service representative demonstrates understanding of disease process, treatment [...] Collaborate with ancillary departments 14. Include patient/patient telephone service representative in decisions related to anxiety Outcome: [...] providing care 6. Collaborate with pastoral/spiritual care, transition social worker, mental health counselor as needed. 7. Instruct patient on diversional activities such as physical activity, distraction, and deep breathing exercises to assist with coping 8. Involve patient's telephone service representative in care Outcome: Progressing Note: Evaluation [...] hydration as ordered 5. Instruct patient/ legal telephone service representative on nutrition/diet; fluid/hydration restrictions as appropriate Outcome: Progressing Note: Evaluation of progress towards goal: monitoring pt's labs and electrolytes. Replacing when needed. * Plan of Care - Claudia MastersonSHARAD - 12/04/2023 3:30 PM EDT Problem: Low Risk Fall Score Description: Pickens Fall Score of 0 - [address] [facility] Assessment Goal: Patient should be free from fall Description: Interventions: 1. Datto to environment 2. Hourly rounds addressing the [...] non-skid footwear 11. Teach patient and patient telephone service representative to maintain environment for safety and engage in all aspects of fall prevention program Outcome: Progressing Note: Evaluation of progress towards goal: fall precautions in place no falls at this time. Problem: Pain Goal: Patient goal is pain score less than 4, able to rest, and participant in treatment plan as appropriate Description: INTERVENTIONS: 1. Encourage patient or legal telephone service representative to report early pain and ask [...] per policy 9. Teach patient or legal telephone service representative interventions for comforting Outcome: Progressing Note: [...] at the bedside 7. Instruct patient/ patient telephone service representative about use of safety devices 8. Include patient/ patient telephone service representative in decisions related to safety Outcome: [...] hygiene technique 7. Identify and instruct patient/patient telephone service representative in use of appropriate isolation precautionsfor identified infection/symptoms 8. Provide and discuss with patient/patient telephone service representative on educational MDRO sheet 9. Encourage and monitor nutritional status daily and consult assistant technician if indicated 10. Implement neutropenic guidelines as needed 11. Review exposure to history of communicable disease and recent travel history on admission 12. Encourage annual influenza vaccine 13. Encourage pneumonia vaccine Outcome: Progressing Note: Evaluation of progress towards goal: pt remains afebrile at this time. Problem: Knowledge Deficit Goal: Patient/patient telephone service representative demonstrates understanding of disease process, treatment [...] Collaborate with ancillary departments 14. Include patient/patient telephone service representative in decisions related to anxiety Outcome: [...] providing care 6. Collaborate with pastoral/spiritual care, transition social worker, mental health counselor as needed. 7. Instruct patient on diversional activities such as physical activity, distraction, and deep breathing exercises to assist with coping 8. Involve patient's telephone service representative in care Outcome: Progressing Note: Evaluation [...] hydration as ordered 5. Instruct patient/ legal telephone service representative on nutrition/diet; fluid/hydration restrictions as appropriate [...] of 0 - [address] [facility] Assessment Goal: Patient should be free from fall Description: Interventions: 1. Datto to environment 2. Hourly rounds addressing the [...] non-skid footwear 11. Teach patient and patient telephone service representative to maintain environment for safety and engage in all aspects of fall prevention program Outcome: Progressing Note: Evaluation of progress towards goal: pt remains free from falls. Pt independent in room. Problem: Pain Goal: Patient goal is pain score less than 4, able to rest, and participant in treatment plan as appropriate Description: INTERVENTIONS: 1. Encourage patient or legal telephone service representative to report early pain and ask [...] per policy 9. Teach patient or legal telephone service representative interventions for comforting Outcome: Progressing Note: [...] at the bedside 7. Instruct patient/ patient telephone service representative about use of safety devices 8. Include patient/ patient telephone service representative in decisions related to safety Outcome: [...] hygiene technique 7. Identify and instruct patient/patient telephone service representative in use of appropriate isolation precautionsfor identified infection/symptoms 8. Provide and discuss with patient/patient telephone service representative on educational MDRO sheet 9. Encourage and monitor nutritional status daily and consult assistant technician if indicated 10. Implement neutropenic guidelines as needed 11. Review exposure to history of communicable disease and recent travel history on admission 12. Encourage annual influenza vaccine 13. Encourage pneumonia vaccine Outcome: Progressing Note: Evaluation of progress towards goal: pt remains afebrile. Hand hygiene performed. Problem: Knowledge Deficit Goal: Patient/patient telephone service representative demonstrates understanding of disease process, treatment [...] hydration as ordered 5. Instruct patient/ legal telephone service representative on nutrition/diet; fluid/hydration restrictions as appropriate Outcome: Progressing Note: Evaluation of progress towards goal: monitoring pt's labs and electrolytes. Replacing when needed. * Plan of Care - Claudia Masterson LPN - 12/03/2023 5:13 PM EDT Problem: Low Risk Fall Score Description: Pickens Fall Score of 0 - [address] [facility] Assessment Goal: Patient should be free from fall Description: Interventions: 1. Datto to environment 2. Hourly rounds addressing the [...] non-skid footwear 11. Teach patient and patient telephone service representative to maintain environment for safety and engage in all aspects of fall prevention program Outcome: Progressing Note: Evaluation of progress towards goal: fall precautions in place, pt remains free from falls atthis time. Problem: Pain Goal: Patient goal is pain score less than 4, able to rest, and participant in treatment plan as appropriate Description: INTERVENTIONS: 1. Encourage patient or legal telephone service representative to report early pain and ask [...] per policy 9. Teach patient or legal telephone service representative interventions for comforting Outcome: Progressing Note: [...] at the bedside 7. Instruct patient/ patient telephone service representative about use of safety devices 8. Include patient/ patient telephone service representative in decisions related to safety Outcome: [...] hygiene technique 7. Identify and instruct patient/patient telephone service representative in use of appropriate isolation precautionsfor identified infection/symptoms 8. Provide and discuss with patient/patient telephone service representative on educational MDRO sheet 9. Encourage and monitor nutritional status daily and consult assistant technician if indicated 10. Implement neutropenic guidelines as needed 11. Review exposure to history of communicable disease and recent travel history on admission 12. Encourage annual influenza vaccine 13. Encourage pneumonia vaccine Outcome: Progressing Note: Evaluation of progress towards goal: pt remains afebrile at this time. Problem: Knowledge Deficit Goal: Patient/patient telephone service representative demonstrates understanding of disease process, treatment [...] Collaborate with ancillary departments 14. Include patient/patient telephone service representative in decisions related to anxiety Outcome: [...] providing care 6. Collaborate with pastoral/spiritual care, transition social worker, mental health counselor as needed. 7. Instruct patient on diversional activities such as physical activity, distraction, and deep breathing exercises to assist with coping 8. Involve patient's telephone service representative in care Outcome: Progressing Note: Evaluation [...] hydration as ordered 5. Instruct patient/ legal telephone service representative on nutrition/diet; fluid/hydration restrictions as appropriate Outcome: Progressing Note: Evaluation of progress towards goal: electrolytes continue to need replacement at this time. * Discharge Planning Note - Heike Anderson - 12/03/2023 9:59 AM EDT DISCHARGE PLANNING NOTE Referral to [facility], [facility]- [place], [place] [facility] - (P# ; F# ) * Discharge Planning Note - Mariah Starr RN - 12/03/2023 9:16 AM EDT DISCHARGE PLANNING NOTE Tire Debeader met with patient and at bedside, introduced self, and explained role. Patient educated on safe discharge plan. Pt admitted 12/02/2023 with MIRNA (acute kidney injury) ([facility]) [N17.9] per chart review. Patient lives with [...] - Vanco/Ertapenum at home thru [facility] with [facility] drawing labs three days a week and weekly port dressing changes. Patient denies need for transportation/ food/ prescription medication assistance resources. PCP: RICHIE HANNA, [facility]ER-PLATE [employer]ER Pharmacy:[facility] in [place] PCP and pharmacy confirmed with patient. CN offered to assist with follow up appointment arrangements, patient declined need. Current discharge plan is: home with IV antibiotics Task sent to [facility] to send referral to [facility]. Will continue to follow as plan of care develops. CN discussed benefits and importance of medication compliance and follow ups. - MARIAH STARR RN 12/03/23 9:16 AM * Plan of Care - Shanice Hogan RN - 12/03/2023 1:08 AM EDT Problem: Low Risk Fall Score Description: Pickens Fall Score of 0 - [address] [facility] Assessment Goal: Patient should be free from fall Description: Interventions: 1. Datto to environment 2. Hourly rounds addressing the [...] non-skid footwear 11. Teach patient and patient telephone service representative to maintain environment for safety and [...] Description: INTERVENTIONS: 1. Encourage patient or legal telephone service representative to report early pain and ask [...] per policy 9. Teach patient or legal telephone service representative interventions for comforting Outcome: Progressing Note: [...] at the bedside 7. Instruct patient/ patient telephone service representative about use of safety devices 8. Include patient/ patient telephone service representative in decisions related to safety Outcome: [...] hygiene technique 7. Identify and instruct patient/patient telephone service representative in use of appropriate isolation precautionsfor identified infection/symptoms 8. Provide and discuss with patient/patient telephone service representative on educational MDRO sheet 9. Encourage and monitor nutritional status daily and consult assistant technician if indicated 10. Implement neutropenic guidelines as needed 11. Review exposure to history of communicable disease and recent travel history on admission 12. Encourage annual influenza vaccine 13. Encourage pneumonia vaccine Outcome: Progressing Note: Evaluation of progress towards goal: Afebrile, labs and VS monitored Problem: Knowledge Deficit Goal: Patient/patient telephone service representative demonstrates understanding of disease process, treatment [...] Collaborate with ancillary departments 14. Include patient/patient telephone service representative in decisions related to anxiety Outcome: [...] providing care 6. Collaborate with pastoral/spiritual care, transition social worker, mental health counselor as needed. 7. Instruct patient on diversional activities such as physical activity, distraction, and deep breathing exercises to assist with coping 8. Involve patient's telephone service representative in care Outcome: Progressing Note: Evaluation [...] hydration as ordered 5. Instruct patient/ legal telephone service representative on nutrition/diet; fluid/hydration restrictions as appropriate Outcome: Progressing Note: Evaluation of progress towards goal: Display of normal lab values. Electrolytes are replaced as needed. documented in this encounterSt. John of God HospitalFoxGuard Solutions [facility] [id number] Hospital course Narrative* Amy Singh MD - 12/09/2023 2:48 PM EDT Images from the original note were not included. [facility] INTERNAL [facility]IC[facility] - ONCOLOGY/STROKE [address] [id number] Hospital Medicine Discharge Summary Patient: Ike Flannery Date of : 1970 Room: [facility]/ Encounter date: 12/09/23 DATE OF ADMISSION: 12/02/2023 DATE OF DISCHARGE:12/09/2023 DISCHARGE DIAGNOSES # Acute kidney injury, ATN, multifactorial in the setting of decreased p.o. 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 follow up with primary safe and vault mechanic Dr. Clint Villanueva. follow-up with nephrology in [...] 14 tentatively. She will follow up with [facility] Dr. Lui on 01/13/ Patient's [...] Medications These medications were sent to [facility] - [place], [place] - [address], [place] [address] ciprofloxacin HCl 500 mg tablet clarithromycin 500 mg tablet cyanocobalamin 1000 MCG tablet linezolid 600 mg tablet You can get these medications from any pharmacy Bring a paper prescription for each of these medications imipenem-cilastatin 500 mg in sodium chloride 0.9 % 100 mL IVPB MINI-BAG Plus >30 minutes were spent on discharging this patient. Amy Singh MD 12/09/2023 2:48 PM [facility] Internal Medicine 7AM-7PM (all facilities): EpicChat or page through [employer] 7PM-7AM ([facility], [facility] Re[facility]): EpicChat or page, [phone]. 7PM-7AM ([facility], [place], [place] and [facility] Rehab): EpicChat or page through [employer] documented in this encounterSt. John of God HospitalFoxGuard Solutions [facility] [place] [id number] Hospital Discharge instructions* Discharge Instructions* Amy Singh MD - 12/09/2023 2:42 PM EDT take ciprofloxacin for 2 week course of treatment until December 15 and then Zyvox from December 16 to December 29, clarithromycin until January 14 tentatively, and imipenem until January 14tentatively Ambulatory referral placed for [facility] Dr. Lui for usp management -has appointment January 13 Check labs WBC, platelets, creatinine, LFTs weekly while on antibiotics. follow up with primary safe and vault mechanic Dr. Clint Villanueva. follow-up with nephrology in [...] to reschedule. Thank you! HERMAN LUI DO [phone] [facility] [address] Infectious Disease [facility] [phone] Go on 01/14/2024 at 2 PM Pt. [...] For NEW patients, MD will not prescribe usp pain medication. * Attachments The following attachments cannot be sent through Care Everywhere. * Acute kidney injury (Egyptian) * How to Prevent Surgical Site Infections (Egyptian) documented in this encounterProMedica [facility]10-09-2024 Plan of care note * Plan of Care - Aliza Benito RN - 12/09/2023 4:18 AM EDT Problem: Low Risk Fall Score Description: Pickens Fall Score of 0 - 24 or indicated by [facility] Assessment Goal: Patient should be free from fall Description: Interventions: 1. Datto to environment 2. Hourly rounds addressing the [...] non-skid footwear 11. Teach patient and patient telephone service representative to maintain environment for safety and engage in all aspects of fall prevention program Outcome: Progressing Note: Evaluation of progress towards goal: Pt remains free from falls. Will continue to provide a safe environment. Problem: Pain Goal: Patient goal is pain score less than 4, able to rest, and participant in treatment plan as appropriate Description: INTERVENTIONS: 1. Encourage patient or legal telephone service representative to report early pain and ask [...] per policy 9. Teach patient or legal telephone service representative interventions for comforting Outcome: Progressing Note: [...] at the bedside 7. Instruct patient/ patient telephone service representative about use of safety devices 8. Include patient/ patient telephone service representative in decisions related to safety Outcome: [...] hygiene technique 7. Identify and instruct patient/patient telephone service representative in use of appropriate isolation precautionsfor identified infection/symptoms 8. Provide and discuss with patient/patient telephone service representative on educational MDRO sheet 9. Encourage and monitor nutritional status daily and consult assistant technician if indicated 10. Implement neutropenic guidelines as needed 11. Review exposure to history of communicable disease and recent travel history on admission 12. Encourage annual influenza vaccine 13. Encourage pneumonia vaccine Outcome: Progressing Note: Evaluation of progress towards goal: pt remains afebrile, currently on antibiotics Problem: Knowledge Deficit Goal: Patient/patient telephone service representative demonstrates understanding of disease process, treatment [...] Collaborate with ancillary departments 14. Include patient/patient telephone service representative in decisions related to anxiety Outcome: [...] providing care 6. Collaborate with pastoral/spiritual care, transition social worker, mental health counselor as needed. 7. Instruct patient on diversional activities such as physical activity, distraction, and deep breathing exercises to assist with coping 8. Involve patient's telephone service representative in care Outcome: Progressing Note: Evaluation [...] hydration as ordered 5. Instruct patient/ legal telephone service representative on nutrition/diet; fluid/hydration restrictions as appropriate Outcome: Progressing Note: Evaluation of progress towards goal: electrolytes are continuing to be monitored and replacedper protocol [employer] [facility] [id number] Plan of care note* Plan of Care - Claudia Masterson LPN - 12/08/2023 3:27 PM EDT Problem: Low Risk Fall Score Description: Pickens Fall Score of 0 - [address] [facility] Assessment Goal: Patient should be free from fall Description: Interventions: 1. Datto to environment 2. Hourly rounds addressing the [...] non-skid footwear 11. Teach patient and patient telephone service representative to maintain environment for safety and engage in all aspects of fall prevention program Outcome: Progressing Note: Evaluation of progress towards goal: pt remains free from falls at this time. Problem: Pain Goal: Patient goal is pain score less than 4, able to rest, and participant in treatment plan as appropriate Description: INTERVENTIONS: 1. Encourage patient or legal telephone service representative to report early pain and ask [...] per policy 9. Teach patient or legal telephone service representative interventions for comforting Outcome: Progressing Note: [...] at the bedside 7. Instruct patient/ patient telephone service representative about use of safety devices 8. Include patient/ patient telephone service representative in decisions related to safety Outcome: [...] hygiene technique 7. Identify and instruct patient/patient telephone service representative in use of appropriate isolation precautionsfor identified infection/symptoms 8. Provide and discuss with patient/patient telephone service representative on educational MDRO sheet 9. Encourage and monitor nutritional status daily and consult assistant technician if indicated 10. Implement neutropenic guidelines as needed 11. Review exposure to history of communicable disease and recent travel history on admission 12. Encourage annual influenza vaccine 13. Encourage pneumonia vaccine Outcome: Progressing Note: Evaluation of progress towards goal: pt remains afebrile at this time. Problem: Knowledge Deficit Goal: Patient/patient telephone service representative demonstrates understanding of disease process, treatment [...] Collaborate with ancillary departments 14. Include patient/patient telephone service representative in decisions related to anxiety Outcome: [...] providing care 6. Collaborate with pastoral/spiritual care, transition social worker, mental health counselor as needed. 7. Instruct patient on diversional activities such as physical activity, distraction, and deep breathing exercises to assist with coping 8. Involve patient's telephone service representative in care Outcome: Progressing Note: Evaluation [...] hydration as ordered 5. Instruct patient/ legal telephone service representative on nutrition/diet; fluid/hydration restrictions as appropriate Outcome: Progressing Note: Evaluation of progress towards goal: electrolytes replaced within normal limits at this time. [facility]10-08-[facility]24 Progress note* Discharge Planning Note - Mariah Starr RN - 12/08/2023 3:23 PM EDT DISCHARGE PLANNING NOTE Patient discussed in DTRs. Barrier to discharge is ID plan. 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 Task sent to [facility] to get appointment set up. Plan is for patient to be discharged on Primaxin IV - sent [facility] cost. - MARIAH STARR RN 12/08/23 3:26 PM Primaxin IV is 100% covered. Script and prior auth sent to [facility]. Medication will be delivered to the patient's home between 5-9pm. Spoke with Skye at [facility] and they have the standing order for weekly labs and weekly dressing change. Patient updated and agreeable with plan to discharge home this afternoon. Patient has appointment set for 01/14/[address] Herman Lui. - MARIAH STARR RN 12/09/23 2:19 PM CRF sent to [facility]. 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 Datto to environment 2. Hourly rounds addressing the [...] non-skid footwear 11. Teach patient and patient telephone service representative to maintain environment for safety and engage in all aspects of fall prevention program Outcome: Progressing Note: Evaluation of progress towards goal: Pt remains free from falls. Will continue to provide a safe environment. Problem: Pain Goal: Patient goal is pain score less than 4, able to rest, and participant in treatment plan as appropriate Description: INTERVENTIONS: 1. Encourage patient or legal telephone service representative to report early pain and ask [...] per policy 9. Teach patient or legal telephone service representative interventions for comforting Outcome: Progressing Note: [...] at the bedside 7. Instruct patient/ patient telephone service representative about use of safety devices 8. Include patient/ patient telephone service representative in decisions related to safety Outcome: [...] hygiene technique 7. Identify and instruct patient/patient telephone service representative in use of appropriate isolation precautionsfor identified infection/symptoms 8. Provide and discuss with patient/patient telephone service representative on educational MDRO sheet 9. Encourage and monitor nutritional status daily and consult assistant technician if indicated 10. Implement neutropenic guidelines as needed 11. Review exposure to history of communicable disease and recent travel history on admission 12. Encourage annual influenza vaccine 13. Encourage pneumonia vaccine Outcome: Progressing Note: Evaluation of progress towards goal: pt remains afebrile at this time, antibiotics are administered as ordered Problem: Knowledge Deficit Goal: Patient/patient telephone service representative demonstrates understanding of disease process, treatment [...] Collaborate with ancillary departments 14. Include patient/patient telephone service representative in decisions related to anxiety Outcome: [...] providing care 6. Collaborate with pastoral/spiritual care, transition social worker, mental health counselor as needed. 7. Instruct patient on diversional activities such as physical activity, distraction, and deep breathing exercises to assist with coping 8. Involve patient's telephone service representative in care Outcome: Progressing Note: Evaluation [...] hydration as ordered 5. Instruct patient/ legal telephone service representative on nutrition/diet; fluid/hydration restrictions as appropriate Outcome: Progressing Note: Evaluation of progress towards goal: electrolytes are monitored and replaced per orders [facility] [id number] Progress note* Discharge Planning Note - Mariah [...] - MARIAH STARR RN 12/07/23 12:06 PM T [facility] [id number] Plan of care note* Plan of Care - Corrina Sycamore, RN - 12/07/2023 10:30 AM EDT Problem: Pain Goal: Patient goal is pain score less than 4, able to rest, and participant in treatment plan as appropriate Description: INTERVENTIONS: 1. Encourage patient or legal telephone service representative to report early pain and ask [...] per policy 9. Teach patient or legal telephone service representative interventions for comforting Outcome: Progressing Note: [...] at the bedside 7. Instruct patient/ patient telephone service representative about use of safety devices 8. Include patient/ patient telephone service representative in decisions related to safety Outcome: [...] hygiene technique 7. Identify and instruct patient/patient telephone service representative in use of appropriate isolation precautionsfor identified infection/symptoms 8. Provide and discuss with patient/patient telephone service representative on educational MDRO sheet 9. Encourage and monitor nutritional status daily and consult assistant technician if indicated 10. Implement neutropenic guidelines as needed 11. Review exposure to history of communicable disease and recent travel history on admission 12. Encourage annual influenza vaccine 13. Encourage pneumonia vaccine Outcome: Progressing Note: Evaluation of progress towards goal: pt afebrile. WBC 2.7 Problem: Knowledge Deficit Goal: Patient/patient telephone service representative demonstrates understanding of disease process, treatment [...] of progress towards goal: d/c plans pending [facility]10-07-2024 Plan of care note* Plan of Care - Aliza Benito RN - 12/07/2023 5:19 AM EDT Problem: Low Risk Fall Score Description: Pickens Fall Score of 0 - 24 or indicated by [facility] Assessment Goal: Patient should be free from fall Description: Interventions: 1. Datto to environment 2. Hourly rounds addressing the [...] non-skid footwear 11. Teach patient and patient telephone service representative to maintain environment for safety and engage in all aspects of fall prevention program Outcome: Progressing Note: Evaluation of progress towards goal: Pt remains free from falls. Will continue to provide a safe environment. Problem: Pain Goal: Patient goal is pain score less than 4, able to rest, and participant in treatment plan as appropriate Description: INTERVENTIONS: 1. Encourage patient or legal telephone service representative to report early pain and ask [...] per policy 9. Teach patient or legal telephone service representative interventions for comforting Outcome: Progressing Note: [...] at the bedside 7. Instruct patient/ patient telephone service representative about use of safety devices 8. Include patient/ patient telephone service representative in decisions related to safety Outcome: [...] hygiene technique 7. Identify and instruct patient/patient telephone service representative in use of appropriate isolation precautionsfor identified infection/symptoms 8. Provide and discuss with patient/patient telephone service representative on educational MDRO sheet 9. Encourage and monitor nutritional status daily and consult assistant technician if indicated 10. Implement neutropenic guidelines as needed 11. Review exposure to history of communicable disease and recent travel history on admission 12. Encourage annual influenza vaccine 13. Encourage pneumonia vaccine Outcome: Progressing Note: Evaluation of progress towards goal: patient remains on antibiotics at this time, monitoring for s/s of infection Problem: Knowledge Deficit Goal: Patient/patient telephone service representative demonstrates understanding of disease process, treatment [...] Collaborate with ancillary departments 14. Include patient/patient telephone service representative in decisions related to anxiety Outcome: [...] providing care 6. Collaborate with pastoral/spiritual care, transition social worker, mental health counselor as needed. 7. Instruct patient on diversional activities such as physical activity, distraction, and deep breathing exercises to assist with coping 8. Involve patient's telephone service representative in care Outcome: Progressing Note: Evaluation [...] hydration as ordered 5. Instruct patient/ legal telephone service representative on nutrition/diet; fluid/hydration restrictions as appropriate Outcome: Progressing Note: Evaluation of progress towards goal: electrolytes are within range at this time [facility]10-06-2024 Plan of care note* Plan of Care - Corrina Richardson RN - 12/06/2023 9:51 AM EDT Problem: Pain Goal: Patient goal is pain score less than 4, able to rest, and participant in treatment plan as appropriate Description: INTERVENTIONS: 1. Encourage patient or legal telephone service representative to report early pain and ask [...] per policy 9. Teach patient or legal telephone service representative interventions for comforting Outcome: Progressing Note: [...] at the bedside 7. Instruct patient/ patient telephone service representative about use of safety devices 8. Include patient/ patient telephone service representative in decisions related to safety Outcome: [...] hygiene technique 7. Identify and instruct patient/patient telephone service representative in use of appropriate isolation precautionsfor identified infection/symptoms 8. Provide and discuss with patient/patient telephone service representative on educational MDRO sheet 9. Encourage and monitor nutritional status daily and consult assistant technician if indicated 10. Implement neutropenic guidelines as needed 11. Review exposure to history of communicable disease and recent travel history on admission 12. Encourage annual influenza vaccine 13. Encourage pneumonia vaccine Outcome: Progressing Note: Evaluation of progress towards goal: pt afebrile this AM. WBC 3.0 Positive Wound culture [facility] Problem: Knowledge Deficit Goal: Patient/patient telephone service representative demonstrates understanding of disease process, treatment [...] progress towards goal: awaiting referral for [facility]10-06-2024 Plan of care note* Plan of Care - Skye Mary RN - 12/06/2023 1:56 AM EDT Problem: Low Risk Fall Score Description: Pickens Fall Score of 0 - 24 or indicated by [facility] Assessment Goal: Patient should be free from fall Description: Interventions: 1. Datto to environment 2. Hourly rounds addressing the [...] non-skid footwear 11. Teach patient and patient telephone service representative to maintain environment for safety and engage in all aspects of fall prevention program Outcome: Progressing Note: Evaluation of progress towards goal: pt remains free from falls. Pt independent in room. Problem: Pain Goal: Patient goal is pain score less than 4, able to rest, and participant in treatment plan as appropriate Description: INTERVENTIONS: 1. Encourage patient or legal telephone service representative to report early pain and ask [...] per policy 9. Teach patient or legal telephone service representative interventions for comforting Outcome: Progressing Note: [...] at the bedside 7. Instruct patient/ patient telephone service representative about use of safety devices 8. Include patient/ patient telephone service representative in decisions related to safety Outcome: [...] hygiene technique 7. Identify and instruct patient/patient telephone service representative in use of appropriate isolation precautionsfor identified infection/symptoms 8. Provide and discuss with patient/patient telephone service representative on educational MDRO sheet 9. Encourage and monitor nutritional status daily and consult assistant technician if indicated 10. Implement neutropenic guidelines as needed 11. Review exposure to history of communicable disease and recent travel history on admission 12. Encourage annual influenza vaccine 13. Encourage pneumonia vaccine Outcome: Progressing Note: Evaluation of progress towards goal: pt continues with intermittent fevers. Prn meds available. Problem: Knowledge Deficit Goal: Patient/patient telephone service representative demonstrates understanding of disease process, treatment [...] hydration as ordered 5. Instruct patient/ legal telephone service representative on nutrition/diet; fluid/hydration restrictions as appropriate Outcome: Progressing Note: Evaluation of progress towards goal: monitoring pt's labs and electrolytes. Replacing when needed. [facility]10-05-2024 Plan of care note* Plan of Care - Claudia Masterson LPN - 12/05/2023 1:17 PM EDT Problem: Low Risk Fall Score Description: Pickens Fall Score of 0 - 24 or indicated by [facility] Assessment Goal: Patient should be free from fall Description: Interventions: 1. Datto to environment 2. Hourly rounds addressing the [...] non-skid footwear 11. Teach patient and patient telephone service representative to maintain environment for safety and engage in all aspects of fall prevention program Outcome: Progressing Note: Evaluation of progress towards goal: pt free from falls at this time. Problem: Pain Goal: Patient goal is pain score less than 4, able to rest, and participant in treatment plan as appropriate Description: INTERVENTIONS: 1. Encourage patient or legal telephone service representative to report early pain and ask [...] per policy 9. Teach patient or legal telephone service representative interventions for comforting Outcome: Progressing Note: [...] at the bedside 7. Instruct patient/ patient telephone service representative about use of safety devices 8. Include patient/ patient telephone service representative in decisions related to safety Outcome: [...] hygiene technique 7. Identify and instruct patient/patient telephone service representative in use of appropriate isolation precautionsfor identified infection/symptoms 8. Provide and discuss with patient/patient telephone service representative on educational MDRO sheet 9. Encourage and monitor nutritional status daily and consult assistant technician if indicated 10. Implement neutropenic guidelines as needed 11. Review exposure to history of communicable disease and recent travel history on admission 12. Encourage annual influenza vaccine 13. Encourage pneumonia vaccine Outcome: Progressing Note: Evaluation of progress towards goal: pt continues to have intermittent fevers at this time. Problem: Knowledge Deficit Goal: Patient/patient telephone service representative demonstrates understanding of disease process, treatment [...] Collaborate with ancillary departments 14. Include patient/patient telephone service representative in decisions related to anxiety Outcome: [...] providing care 6. Collaborate with pastoral/spiritual care, transition social worker, mental health counselor as needed. 7. Instruct patient on diversional activities such as physical activity, distraction, and deep breathing exercises to assist with coping 8. Involve patient's telephone service representative in care Outcome: Progressing Note: Evaluation [...] hydration as ordered 5. Instruct patient/ legal telephone service representative on nutrition/diet; fluid/hydration restrictions as appropriate Outcome: Progressing Note: Evaluation of progress towards goal: electrolytes replaced per scale at this time. [facility] [id number] Plan of care note* Plan of Care - Skye Mary RN - 12/05/2023 2:02 AM EDT Problem: Low Risk Fall Score Description: Pickens Fall Score of 0 - 24 or indicated by [facility] Assessment Goal: Patient should be free from fall Description: Interventions: 1. Datto to environment 2. Hourly rounds addressing the [...] non-skid footwear 11. Teach patient and patient telephone service representative to maintain environment for safety and engage in all aspects of fall prevention program Outcome: Progressing Note: Evaluation of progress towards goal: pt remains free from falls. Pt independent in room. Problem: Pain Goal: Patient goal is pain score less than 4, able to rest, and participant in treatment plan as appropriate Description: INTERVENTIONS: 1. Encourage patient or legal telephone service representative to report early pain and ask [...] per policy 9. Teach patient or legal telephone service representative interventions for comforting Outcome: Progressing Note: [...] at the bedside 7. Instruct patient/ patient telephone service representative about use of safety devices 8. Include patient/ patient telephone service representative in decisions related to safety Outcome: [...] hygiene technique 7. Identify and instruct patient/patient telephone service representative in use of appropriate isolation precautionsfor identified infection/symptoms 8. Provide and discuss with patient/patient telephone service representative on educational MDRO sheet 9. Encourage and monitor nutritional status daily and consult assistant technician if indicated 10. Implement neutropenic guidelines as needed 11. Review exposure to history of communicable disease and recent travel history on admission 12. Encourage annual influenza vaccine 13. Encourage pneumonia vaccine Outcome: Progressing Note: Evaluation of progress towards goal: monitoring pt for s/s of infection. Hand hygiene performed. Problem: Knowledge Deficit Goal: Patient/patient telephone service representative demonstrates understanding of disease process, treatment [...] Collaborate with ancillary departments 14. Include patient/patient telephone service representative in decisions related to anxiety Outcome: [...] providing care 6. Collaborate with pastoral/spiritual care, transition social worker, mental health counselor as needed. 7. Instruct patient on diversional activities such as physical activity, distraction, and deep breathing exercises to assist with coping 8. Involve patient's telephone service representative in care Outcome: Progressing Note: Evaluation [...] hydration as ordered 5. Instruct patient/ legal telephone service representative on nutrition/diet; fluid/hydration restrictions as appropriate Outcome: Progressing Note: Evaluation of progress towards goal: monitoring pt's labs and electrolytes. Replacing when needed. [facility] [employer] [id number] Plan of care note* Plan of Care - Claudia Masterson LPN - 12/04/2023 3:30 PM EDT Problem: Low Risk Fall Score Description: Pickens Fall Score of 0 - [address] [facility] Assessment Goal: Patient should be free from fall Description: Interventions: 1. Datto to environment 2. Hourly rounds addressing the [...] non-skid footwear 11. Teach patient and patient telephone service representative to maintain environment for safety and engage in all aspects of fall prevention program Outcome: Progressing Note: Evaluation of progress towards goal: fall precautions in place no falls at this time. Problem: Pain Goal: Patient goal is pain score less than 4, able to rest, and participant in treatment plan as appropriate Description: INTERVENTIONS: 1. Encourage patient or legal telephone service representative to report early pain and ask [...] per policy 9. Teach patient or legal telephone service representative interventions for comforting Outcome: Progressing Note: [...] at the bedside 7. Instruct patient/ patient telephone service representative about use of safety devices 8. Include patient/ patient telephone service representative in decisions related to safety Outcome: [...] hygiene technique 7. Identify and instruct patient/patient telephone service representative in use of appropriate isolation precautionsfor identified infection/symptoms 8. Provide and discuss with patient/patient telephone service representative on educational MDRO sheet 9. Encourage and monitor nutritional status daily and consult assistant technician if indicated 10. Implement neutropenic guidelines as needed 11. Review exposure to history of communicable disease and recent travel history on admission 12. Encourage annual influenza vaccine 13. Encourage pneumonia vaccine Outcome: Progressing Note: Evaluation of progress towards goal: pt remains afebrile at this time. Problem: Knowledge Deficit Goal: Patient/patient telephone service representative demonstrates understanding of disease process, treatment [...] Collaborate with ancillary departments 14. Include patient/patient telephone service representative in decisions related to anxiety Outcome: [...] providing care 6. Collaborate with pastoral/spiritual care, transition social worker, mental health counselor as needed. 7. Instruct patient on diversional activities such as physical activity, distraction, and deep breathing exercises to assist with coping 8. Involve patient's telephone service representative in care Outcome: Progressing Note: Evaluation [...] hydration as ordered 5. Instruct patient/ legal telephone service representative on nutrition/diet; fluid/hydration restrictions as appropriate Outcome: Progressing Note: Evaluation of progress towards goal: electrolytes within normal limits at this time. [facility] [id number] Progress note* Discharge Planning Note - Mariah [...] - MARIAH STARR RN 12/04/23 1:08 PM [facility]10-04-2024 Plan of care note* Plan of Care - Skye Mary RN - 12/04/2023 12:43 AM EDT Problem: Low Risk Fall Score Description: Pickens Fall Score of 0 - 24 or indicated by [facility] Assessment Goal: Patient should be free from fall Description: Interventions: 1. Datto to environment 2. Hourly rounds addressing the [...] non-skid footwear 11. Teach patient and patient telephone service representative to maintain environment for safety and engage in all aspects of fall prevention program Outcome: Progressing Note: Evaluation of progress towards goal: pt remains free from falls. Pt independent in room. Problem: Pain Goal: Patient goal is pain score less than 4, able to rest, and participant in treatment plan as appropriate Description: INTERVENTIONS: 1. Encourage patient or legal telephone service representative to report early pain and ask [...] per policy 9. Teach patient or legal telephone service representative interventions for comforting Outcome: Progressing Note: [...] at the bedside 7. Instruct patient/ patient telephone service representative about use of safety devices 8. Include patient/ patient telephone service representative in decisions related to safety Outcome: [...] hygiene technique 7. Identify and instruct patient/patient telephone service representative in use of appropriate isolation precautionsfor identified infection/symptoms 8. Provide and discuss with patient/patient telephone service representative on educational MDRO sheet 9. Encourage and monitor nutritional status daily and consult assistant technician if indicated 10. Implement neutropenic guidelines as needed 11. Review exposure to history of communicable disease and recent travel history on admission 12. Encourage annual influenza vaccine 13. Encourage pneumonia vaccine Outcome: Progressing Note: Evaluation of progress towards goal: pt remains afebrile. Hand hygiene performed. Problem: Knowledge Deficit Goal: Patient/patient telephone service representative demonstrates understanding of disease process, treatment [...] hydration as ordered 5. Instruct patient/ legal telephone service representative on nutrition/diet; fluid/hydration restrictions as appropriate Outcome: Progressing Note: Evaluation of progress towards goal: monitoring pt's labs and electrolytes. Replacing when needed. [facility] [id number] Plan of care note* Plan of Care - Claudia Masterson LPN - 12/03/2023 5:13 PM EDT Problem: Low Risk Fall Score Description: Pickens Fall Score of 0 - 24 or indicated by [facility] Assessment Goal: Patient should be free from fall Description: Interventions: 1. Datto to environment 2. Hourly rounds addressing the [...] non-skid footwear 11. Teach patient and patient telephone service representative to maintain environment for safety and engage in all aspects of fall prevention program Outcome: Progressing Note: Evaluation of progress towards goal: fall precautions in place, pt remains free from falls atthis time. Problem: Pain Goal: Patient goal is pain score less than 4, able to rest, and participant in treatment plan as appropriate Description: INTERVENTIONS: 1. Encourage patient or legal telephone service representative to report early pain and ask [...] per policy 9. Teach patient or legal telephone service representative interventions for comforting Outcome: Progressing Note: [...] at the bedside 7. Instruct patient/ patient telephone service representative about use of safety devices 8. Include patient/ patient telephone service representative in decisions related to safety Outcome: [...] hygiene technique 7. Identify and instruct patient/patient telephone service representative in use of appropriate isolation precautionsfor identified infection/symptoms 8. Provide and discuss with patient/patient telephone service representative on educational MDRO sheet 9. Encourage and monitor nutritional status daily and consult assistant technician if indicated 10. Implement neutropenic guidelines as needed 11. Review exposure to history of communicable disease and recent travel history on admission 12. Encourage annual influenza vaccine 13. Encourage pneumonia vaccine Outcome: Progressing Note: Evaluation of progress towards goal: pt remains afebrile at this time. Problem: Knowledge Deficit Goal: Patient/patient telephone service representative demonstrates understanding of disease process, treatment [...] Collaborate with ancillary departments 14. Include patient/patient telephone service representative in decisions related to anxiety Outcome: [...] providing care 6. Collaborate with pastoral/spiritual care, transition social worker, mental health counselor as needed. 7. Instruct patient on diversional activities such as physical activity, distraction, and deep breathing exercises to assist with coping 8. Involve patient's telephone service representative in care Outcome: Progressing Note: Evaluation [...] hydration as ordered 5. Instruct patient/ legal telephone service representative on nutrition/diet; fluid/hydration restrictions as appropriate Outcome: Progressing Note: Evaluation of progress towards goal: electrolytes continue to need replacement at this time. [id number] History of Present illness Narrative* AMEENA Vallejo - 12/03/2023 4:23 PM EDT Patient's insurance not accepted over [facility]. Referral sent to [facility] who reportedly cannotsee her until Dec/Jan. Spoke with patient who requested a referral be sent to [facility]. AMEENA Vallejo 12/03/23 1629 documented in this encounterSt. John of God HospitalVaybee [id number] Consult note* Shanon Joe MD - 12/03/2023 4:08 PM EDTAssociated Order(s): IP CONSULT TO CARDIOLOGY Reason for consult: Abnormal ECG History of present illness: The patient is a 53-year-old woman. She was admitted to [facility] December 03, 2023. She reports having fevers and feeling unwell. She has been undergoing treatmentfor breast cellulitis. She denies any chest discomfort or dyspnea. She has no palpitations. She normally follows with Dr. Clint Villanueva of [facility] Allergies: Meperidine, daptomycin, adhesive Medications: [...] cell count 5.8, hemoglobin 8.0, platelet count [id number]. 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 Clint Villanueva. [employer] Work Phone: [phone] 225-726410-03-2024 Consult note* Shanon Joe MD - 12/03/2023 4:08 PM EDTAssociated Order(s): IP CONSULT TO CARDIOLOGY Reason for consult: Abnormal ECG History of present illness: The patient is a 53-year-old woman. She was admitted to [facility] December 03, 2023. She reports having fevers and feeling unwell. She has been undergoing treatmentfor breast cellulitis. She denies any chest discomfort or dyspnea. She has no palpitations. She normally follows with Dr. Clint Villanueva of [facility] Allergies: Meperidine, daptomycin, adhesive Medications: [...] cell count 5.8, hemoglobin 8.0, platelet count [id number]. 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 Clint Villanueva. * Carlene Noguera MD - 12/03/2023 2:03 PM EDTAssociated Order(s): IP CONSULT TO INFECTIOUS DISEASES Images from the original note were not included. [facility] - Initial Consult Note Ike Flannery Admit date/time 12/02/2023 9:55 PM Today's Date and Time: 12/03/2023, 2:03 PM Impression: Left breast cellulitis 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 installer-culture growing acid-fast bacilli Acute kidney injury History [...] care Ambulatory referrals to Infectious Disease at [facility], [facility], [facility]/U acid-fast bacilli. Patient was notified by [facility] that she can not use her insurance over [place] [facility]. We will send referral per patient request to [facility]. Reason for consultation: Infection on IV antibiotics, established patient Chief complaint Postop problem History of Present Illness: Ike Flannery is a 53 y.o.-year-old female who was initially admitted on 12/02/2023. Patient presents to hospital with complaints fever, chills, and vomiting. Patient was recently admitted and discharged from [facility] after removal of infected tissue solar power installer. She was discharged home on Vancomycin and Ertapenem to continue tentatively until December 08. [facility] Last night, we were notified that creatinine was 2.56 and vanco trough 33. Patient also complaining nausea, fever, and chills and was advised to go to ER. Left breast cultures from previous admission are preliminarily growing acid-fast bacilli. Referralshave been made to [facility], and [facility] for management/treatment. Per patient, Karolyn lou notified her today and stated they cannot accept her insurance. [facility] cannot see her until December or January. Will place referral to [facility] per patient request. Patient states she feels better today with no further nausea or vomiting.. WBC stable. Denies any cough or shortness of breath. Pain is stable I have personally reviewed the past medical history, past surgical history, medications, social history, and family history, and I have updated the database accordingly. Past Medical History: Past Medical History: Diagnosis Date Breast cancer ([facility]) 2023 mammary carcinoma Deep vein thrombosis ([facility]) 09/18/2023 Left calf Hypertension Knee pain PONV (postoperative nausea and vomiting) Port-A-Cath in place 05/13/2023 Visual impairment Glasses Past Surgical History: Past Surgical History: Procedure Laterality Date ARTHROSCOPIC REPAIR ACL Right 2006 ARTHROSCOPIC REPAIR ACL Left 08/26/2021 BREAST BIOPSY Right 2023 mammary carcinoma EXCISION LYMPH NODE AXILLARY DISSECTION Right 10/28/2023 Performed by Christy He MD at [facility] HYSTERECTOMY IMMEDIATE BREAST RECONSTRUCTION WITH TISSUE SUPERVISOR CURED MEATS PLACEMENT Bilateral 10/28/2023 Performed by Jhon Gross MD at [facility] INCISION DRAINAGE BREAST Left 11/27/2023 Performed by Jhon Gross MD at [facility] MAGNETIC SEED LOCALIZATION EXCISION/BIOPSY MASS BREAST (MAG SEED LOCALIZED TARGETED DISSECTION FOR RETRIEVAL OF PREVIOUSLY CLIPPED LYMPH NODE) Right 10/28/2023 Performed by Christy He MD at [facility] MASTECTOMY BREAST SIMPLE RISK REDUCING SKIN SPARING Left 10/28/2023 Performed by Christy He MD at [facility] MASTECTOMY BREAST SIMPLE SKIN SPARING Right 10/28/2023 Performed by Christy He MD at [facility] MENISCECTOMY Bilateral 2022 PORTACATH PLACEMENT Left left chest REMOVAL SUPERVISOR CURED MEATS TISSUE BREAST Left 11/27/2023 Performed by Jhon Gross MD at [facility] RIGHT AXILLARY PROPHYLACTIC BYPASS LYMPHOVENOUS Right 10/28/2023 Performed by Jhon Gross MD at [facility] TONSILLECTOMY AND ADENOIDECTOMY Age 3 TUMOR [...] 60 min Stress: Stress Concern Present (02/27/2022) [place] [employer] - Occupational Stress Questionnaire [...] Procedure Component Value Units Date/Time Urine culture [[id number]] Collected: 12/02/23 2341 Specimen: Urine Updated: 12/03/23 0829 Blood culture [[id number]] Collected: 12/02/232235 Specimen: Blood, Peripheral Draw Updated: 12/02/232235 Blood culture [[id number]] Collected: 12/02/232235 Specimen: Blood, Peripheral Draw Updated: 12/02/232235 Anaerobic culture [[id number]] Collected: 11/27/23 154 Specimen: Body Fluid from Breast, Left Updated: 12/02/23 0851 Specimen Notes SPECIMEN A Culture NO GROWTH 5 DAYS Fungal culture includes fungal smear [[id number]] Collected: 11/27/23 154 Specimen: Body Fluid from Breast, Left Updated: 11/28/23 0702 Specimen Notes SPECIMEN A Fungal smear -- NO FUNGAL ELEMENTS SEEN ON DIRECT SMEAR Culture PENDING AFB culture concentrated includes AFB smear [[id number]] (Abnormal) Collected: 11/27/23 1548 Specimen: Body Fluid from Breast, Left Updated: 12/01/23 1056 Specimen Notes SPECIMEN A AFB Smear NO ACID FAST BACILLI (CONCENTRATED SMEAR) Culture ACID FAST BACILLI ISOLATED Aspirate culture includes gram stain [[id number]] (Abnormal) Collected: 11/27/23 1548 Specimen: Aspirate Atr Updated: 12/01/23 1544 Specimen Notes SPECIMEN A Gram Stain Result >25 WHITE BLOOD CELLS/LPF 0 SQUAMOUS EPITHELIAL CELLS/LPF NO ORGANISMS SEEN Culture MODERATE ACID FAST BACILLI ISOLATED REPORT UPDATED GROWTH OBSERVED AT 48 HOURS Mrsa Pcr nasal swab [[id number]] Collected: 11/27/23 0020 Specimen: Nasal Updated: 11/27/23 0957 Mrsa PCR Negative Blood culture [[id number]] Collected: 11/26/23 1715 Specimen: Blood Updated: 12/01/23 2008 Culture NO GROWTH 5 DAYS Imaging Studies: No results found. Gino Flower APRN, PLATE CONDITIONER [phone] Thank you for allowing us to participate in the care of this patient. Please call with questions. Gino Flower APRN-PLATE CONDITIONER 12/03/23 1419 ICarlene MD, personally performed [id number] diagnostic evaluation on this patient I reviewed [...] from the hospital after removal of breast solar power installer secondary to infection. She was discharged on [...] except for the removal of the breast solar power installer and the IV antibiotics for the infection. [...] seroma status post removal of left breast solar power installer on November 27, 2023 Hypertension Edema Depression/anxiety [...] 60 min Stress: Stress Concern Present (02/27/2022) [place] [employer] - Occupational Stress Questionnaire [...] Results from last 7 days Lab Units 1034912/02/23221211/30/23 0911/27/23 0545 11/26/23 1715 SODIUM mmol/L 137 133* [...] Results from last 7 days Lab Units 12/03/2334912/02/23230412/02/23 221 TOTAL PROTEIN g/dL 5.5* -- 6.4 ALBUMIN g/dL 3.3 -- 3.8 AST U/L 19 -- 24 ALT U/L 10 -- 12 TOTAL BILIRUBIN mg/dL 0.6 -- 0.6 BILIRUBIN, URINE -- Negative -- ALK PHOS U/L 60 -- 69 Results from last 7 days Lab Units 12/03/2334912/02/23221211/30/2392911/27/23 0545 WBC X10E9/L 5.8 7.8 6.5 6.2 HEMOGLOBIN g/dL 8.0* 9.1* 8.8* 8.7* HEMATOCRIT % 22.9* 26.0* 25.2* 24.9* PLATELETS X10E9/L 233 279 294 267 Lab Results Component Value Date IRON 43 (L) 01/31/2022 TIBC 519 (H) 01/31/2022 FERRITIN 8 (L) 01/31/2022 IRONSAT 8 (L) 01/31/2022 Results from last 7 days Lab Units 12/03/23 03512/02/23221211/30/2392911/27/23 0545 11/26/23 1715 GLUCOSE mg/dL 103* 106* [...] call us with any questions at: Office: [phone] Office Answering Service: [phone] Epifanio Henry M.D. This note was created with the assistance of a speech-recognition program. Although the intention is to generate a document that actually reflects the content of the visit, no guarantees can be provided that every mistake has been identified and corrected by editing. documented in this encounter[facility] Consult note* Carlene Noguera MD - 12/03/2023 2:03 PM EDTAssociated Order(s): IP CONSULT TO INFECTIOUS DISEASES Images from the original note were not included. [facility] - Initial Consult Note Ike Flannery Admit date/time 12/02/2023 9:55 PM Today's Date and Time: 12/03/2023, 2:03 PM Impression: Left breast cellulitis 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 installer-culture growing acid-fast bacilli Acute kidney injury History [...] care Ambulatory referrals to Infectious Disease at [facility], [facility], [facility] have been placed for F/U acid-fast bacilli. Patient was notified by [facility] that she can not use her insurance over [place] [facility]. We will send referral per patient request to [facility]. Reason for consultation: Infection on IV antibiotics, established patient Chief complaint Postop problem History of Present Illness: Ike Flannery is a 53 y.o.-year-old female who was initially admitted on 12/02/2023. Patient presents to hospital with complaints fever, chills, and vomiting. Patient was recently admitted and discharged from [facility] after removal of infected tissue solar power installer. She was discharged home on Vancomycin and Ertapenem to continue tentatively until December 08. [facility] Last night, we were notified that creatinine was 2.56 and vanco trough 33. Patient also complaining nausea, fever, and chills and was advised to go to ER. Left breast cultures from previous admission are preliminarily growing acid-fast bacilli. [facility]erralshave been made to [facility], and [facility] for management/treatment. Per patient, [facility] notified her today and stated they cannot accept her insurance. [facility] cannot see her until December or January. Will place referral to [facility] per patient request. Patient states she feels better today with no further nausea or vomiting.. WBC stable. Denies any cough or shortness of breath. Pain is stable I have personally reviewed the past medical history, past surgical history, medications, social history, and family history, and I have updated the database accordingly. Past Medical History: Past Medical History: Diagnosis Date Breast cancer ([facility]) 2023 mammary carcinoma Deep vein thrombosis ([facility]) 09/18/2023 Left calf Hypertension Knee pain PONV (postoperative nausea and vomiting) Port-A-Cath in place 05/13/2023 Visual impairment Glasses Past Surgical History: Past Surgical History: Procedure Laterality Date ARTHROSCOPIC REPAIR ACL Right 2006 ARTHROSCOPIC REPAIR ACL Left 08/26/2021 BREAST BIOPSY Right 2023 mammary carcinoma EXCISION LYMPH NODE AXILLARY DISSECTION Right 10/28/2023 Performed by Christy He MD at [facility] HYSTERECTOMY IMMEDIATE BREAST RECONSTRUCTION WITH TISSUE SUPERVISOR CURED MEATS PLACEMENT Bilateral 10/28/2023 Performed by Jhon Gross MD at [facility] INCISION DRAINAGE BREAST Left 11/27/2023 Performed by Jhon Gross MD at [facility] MAGNETIC SEED LOCALIZATION EXCISION/BIOPSY MASS BREAST (MAG SEED LOCALIZED TARGETED DISSECTION FOR RETRIEVAL OF PREVIOUSLY CLIPPED LYMPH NODE) Right 10/28/2023 Performed by Christy He MD at [facility] MASTECTOMY BREAST SIMPLE RISK REDUCING SKIN SPARING Left 10/28/2023 Performed by Christy He MD at [facility] MASTECTOMY BREAST SIMPLE SKIN SPARING Right 10/28/2023 Performed by Christy He MD at [facility] MENISCECTOMY Bilateral 2022 PORTACATH PLACEMENT Left left chest REMOVAL SUPERVISOR CURED MEATS TISSUE BREAST Left 11/27/2023 Performed by Jhon Gross MD at [facility] RIGHT AXILLARY PROPHYLACTIC BYPASS LYMPHOVENOUS Right 10/28/2023 Performed by Jhon Gross MD at [facility] TONSILLECTOMY AND ADENOIDECTOMY Age 3 TUMOR [...] 60 min Stress: Stress Concern Present (02/27/2022) [place] [employer] - Occupational Stress Questionnaire [...] Units 12/03/23 0350 12/02/23 2213 11/30/23 0930 WBC X10E9/L 5.8 7.8 6.5 HEMOGLOBIN g/dL 8.0* 9.1* 8.8* HEMATOCRIT % 22.9* 26.0* 25.2* PLATELETS X10E9/L 233 279 294 BMP: Results from last 7 days Lab Units 12/03/23 1220 12/03/23 0350 12/02/23 2213 11/30/23 0930 POTASSIUM mmol/L 3.6 3.1* 3.2* 3.3* [...] Procedure Component Value Units Date/Time Urine culture [[id number]] Collected: 12/02/23 2341 Specimen: Urine Updated: 12/03/2329 Blood culture [[id number]] Collected: 12/02/232235 Specimen: Blood, Peripheral Draw Updated: 12/02/232235 Blood culture [[id number]] Collected: 12/02/232235 Specimen: Blood, Peripheral Draw Updated: 12/02/232235 Anaerobic culture [[id number]] Collected: 11/27/23 1548 Specimen: Body Fluid from Breast, Left Updated: 12/02/23 0851 Specimen Notes SPECIMEN A Culture NO GROWTH 5 DAYS Fungal culture includes fungal smear [[id number]] Collected: 11/27/23 1548 Specimen: Body Fluid from Breast, Left Updated: 11/28/23 0702 Specimen Notes SPECIMEN A Fungal smear -- NO FUNGAL ELEMENTS SEEN ON DIRECT SMEAR Culture PENDING AFB culture concentrated includes AFB smear [[id number]] (Abnormal) Collected: 11/27/23 1548 Specimen: Body Fluid from Breast, Left Updated: 12/01/23 1056 Specimen Notes SPECIMEN A AFB Smear NO ACID FAST BACILLI (CONCENTRATED SMEAR) Culture ACID FAST BACILLI ISOLATED Aspirate culture includes gram stain [[id number]] (Abnormal) Collected: 11/27/23 1548 Specimen: Aspirate Atr Updated: 12/01/23 1544 Specimen Notes SPECIMEN A Gram Stain Result >25 WHITE BLOOD CELLS/LPF 0 SQUAMOUS EPITHELIAL CELLS/LPF NO ORGANISMS SEEN Culture MODERATE ACID FAST BACILLI ISOLATED REPORT UPDATED GROWTH OBSERVED AT 48 HOURS Mrsa Pcr nasal swab [[id number]] Collected: 11/27/23 0020 Specimen: Nasal Updated: 11/27/23 0957 Mrsa PCR Negative Blood culture [[id number]] Collected: 11/26/23 1715 Specimen: Blood Updated: 12/01/232007 Culture NO GROWTH 5 DAYS Imaging Studies: No results found. Gino Flower APRN, PLATE CONDITIONER [phone] Thank you for allowing us to participate in the care of this patient. Please call with questions. Gino Flower APRN-PLATE CONDITIONER 12/03/23 1419 ICarlene MD, personally performed [id number]-[id number] diagnostic evaluation on this patient I reviewed and performed all the ross component of the patient visit I reviewed CELINA history, exam and MDM - Carlene Noguera MD 12/03/23 3:19 PM [facility]10-03-2024 Consult note* Epifanio Henry MD - 12/03/2023 12:13 PM EDTAssociated Order(s): Consult Nephrology Images from the original note were not included. Consult Nephrology Consult performed by: Epifanio Henry MD Consult ordered by: Chris Hollis PA-C NEPHROLOGY CONSULT NOTE Date of Admission: 12/02/2023 9:55 PM Reason for Consult: Acute kidney injury Referring Provider: Chris Hollis PA-C PCP: RICHIE HANNA APRN-ESPERANZA Chief Complaint: Fevers History of Present Illness: Ike Flannery is a 53 y.o. female who presented with the above chief complaint. The patient was recently discharged from the hospital after removal of breast solar power installer secondary to infection. She was discharged on [...] except for the removal of the breast solar power installer and the IV antibiotics for the infection. [...] seroma status post removal of left breast solar power installer on November 27, 2023 Hypertension Edema Depression/anxiety [...] 60 min Stress: Stress Concern Present (02/27/2022) [place] [employer] - Occupational Stress Questionnaire [...] call us with any questions at: Office: [phone] Office Answering Service: [phone] Epifanio Henry M.D. This note was created with the assistance of a speech-recognition program. Although the intention is to generate a document that actually reflects the content of the visit, no guarantees can be provided that every mistake has been identified and corrected by editing. [facility]10-03-2024 Progress note* Discharge Planning Note - Heike Anderson - 12/03/2023 9:59 AM EDT DISCHARGE PLANNING NOTE Referral to [facility], [employer] [facility]- [place], [place] [facility] - (P# ; F# ) Rip van Wafels10-03-2024 Progress note* Discharge Planning Note - Mariah Starr RN - 12/03/2023 9:16 AM EDT DISCHARGE PLANNING NOTE Tire Debeader met with patient and at bedside, introduced self, and explained role. Patient educated on safe discharge plan. Pt admitted 12/02/2023 with MIRNA (acute kidney injury) ([facility]) [N17.9] per chart review. Patient lives with [...] - Vanco/Ertapenum at home thru [facility] with [facility] drawing labs three days a week and weekly port dressing changes. Patient denies need for transportation/ food/ prescription medication assistance resources. PCP: RICHIE HANNA APRN-PLATE CONDITIONER Pharmacy:[facility] in [place] PCP and pharmacy confirmed with patient. CN offered to assist with follow up appointment arrangements, patient declined need. Current discharge plan is: home with IV antibiotics Task sent to [facility] to send referral to [facility]. Will continue to follow as plan of care develops. CN discussed benefits and importance of medication compliance and follow ups. - MARIAH STARR RN 12/03/23 9:16 AM Rip [facility] Wafels10-03-2024 Plan of care note* Plan of Care - Shanice Hogan RN - 12/03/2023 1:08 AM EDT Problem: Low Risk Fall Score Description: [place] Fall Score of 0 - 24 or indicated [address] [facility] Assessment Goal: Patient should be free from fall Description: Interventions: 1. Datto to environment 2. Hourly rounds addressing the [...] non-skid footwear 11. Teach patient and patient telephone service representative to maintain environment for safety and [...] Description: INTERVENTIONS: 1. Encourage patient or legal telephone service representative to report early pain and ask [...] per policy 9. Teach patient or legal telephone service representative interventions for comforting Outcome: Progressing Note: [...] at the bedside 7. Instruct patient/ patient telephone service representative about use of safety devices 8. Include patient/ patient telephone service representative in decisions related to safety Outcome: [...] hygiene technique 7. Identify and instruct patient/patient telephone service representative in use of appropriate isolation precautionsfor identified infection/symptoms 8. Provide and discuss with patient/patient telephone service representative on educational MDRO sheet 9. Encourage and monitor nutritional status daily and consult assistant technician if indicated 10. Implement neutropenic guidelines as needed 11. Review exposure to history of communicable disease and recent travel history on admission 12. Encourage annual influenza vaccine 13. Encourage pneumonia vaccine Outcome: Progressing Note: Evaluation of progress towards goal: Afebrile, labs and VS monitored Problem: Knowledge Deficit Goal: Patient/patient telephone service representative demonstrates understanding of disease process, treatment [...] Collaborate with ancillary departments 14. Include patient/patient telephone service representative in decisions related to anxiety Outcome: [...] providing care 6. Collaborate with pastoral/spiritual care, transition social worker, mental health counselor as needed. 7. Instruct patient on diversional activities such as physical activity, distraction, and deep breathing exercises to assist with coping 8. Involve patient's telephone service representative in care Outcome: Progressing Note: Evaluation [...] hydration as ordered 5. Instruct patient/ legal telephone service representative on nutrition/diet; fluid/hydration restrictions as appropriate Outcome: Progressing Note: Evaluation of progress towards goal: Display of normal lab values. Electrolytes are replaced as needed. [facility]10-[facility] History and physical note* Elayne Chow MD - 12/03/2023 12:25 AM EDT Images from the original note were not included. [facility] INTERNAL MEDICINE [facility] -EMERGENCY DEPT [address] [place] [address] Hospital Medicine History & Physical Patient: Ike [...] chills and was sent by infectious disease [facility] Allergies: Meperidine, Daptomycin, and Adhesive Prior to [...] taking: Reported on 10/28/2023 03/07/22 Richie Hanna APRN-PLATE CONDITIONER capecitabine (XELODA) 500 mg chemo tablet Take by mouth after surgery Patient not taking: Reported on 10/16/2023 10/13/23 Not In System Ref Prov chlorthalidone (HYGROTON) 25 mg tablet Take 0.5 tablets (12.5 mg total) by mouth daily. 03/03/23 Not In System Ref Prov cyclobenzaprine (FLEXERIL) 10 mg tablet TAKE ONE TABLET BY MOUTH ONCE DAILY IN THE EVENING 04/28/23 Kaye Manuel APRN-SECURITY AND PRIVACY CONSULTANT dexAMETHasone (DECADRON) 1 mg tablet TAKE ONE TABLET BY MOUTH TWICE A DAY ON DAYS 3-6 AFTER CHEMOTHERAPY FOR FATIGUE Patient not taking: Reported on 10/16/2023 04/21/23 Not In System Ref Prov diazePAM (VALIUM) 5 mg tablet Take 1 tablet (5 mg total) by mouth every 6 (six) hours as needed formuscle spasms. 11/11/23 Marisela Cuevas APRN-PLATE CONDITIONER DULoxetine (CYMBALTA) 30 mg capsule Take 1 [...] for 10 days. 11/29/23 12/09/23 Leelee Lieberman APRN-PLATE CONDITIONER ferrous sulfate 325 (65 FE) mg tablet Take 1 tablet (325 mg total) by mouth in the morning. Patient not taking: Reported on 07/30/2023 03/07/22 Richie Hanna APRN-PLATE CONDITIONER fluticasone propionate (FLONASE) 50 mcg/actuation nasal spray [...] a past medical history of Breast cancer ([facility]) (2023), Deep vein thrombosis ([facility]) (09/18/2023), Hypertension, Knee pain, PONV (postoperative nausea [...] excision (Right, 10/28/2023); Mastectomy (Left, 10/28/2023); Tissue solar power installer placement (Bilateral, 10/28/2023); Lymph node dissection (Right, 10/28/2023); Tissue solar power installer removal (Left, 11/27/2023); and Incision and drainage [...] data in the 24 hours ending 12/02/23 0762 Physical Exam Constitutional: General: Not in acute distress. Appearance: Normal appearance and is well-developed. HENT: Head: Normocephalic and atraumatic. Right Ear: External ear normal. Left Ear: External ear normal. Nose: Nose normal. Mouth/Throat: Lips: Finzel. Eyes: General: No scleral icterus. Extraocular Movements: [...] LIST Principal Problem: MIRNA (acute kidney injury) ([facility]) ASSESSMENT & PLAN Acute kidney injury, possibly [...] course. CHRIS HOLLIS PA-C 12/03/2023 12:[address] [facility] Internal Medicine 7AM-7PM (all facilities): EpicChat or page through [employer] 7PM-7AM ([facility], [facility] Psychiatry and Inpatient Rehab): EpicChat or page, [phone]. 7PM-7AM ([place], [place], [place], [place] and [facility] Rehab): EpicChat or page through [employer] Chris Hollis PA-C 12/03/23 0025 Chris Hollis [...] ID and Nephrology input. Elayne Chow MD [employer] [id number] History and physical note* Elayne Chow MD - 12/03/2023 12:25 AM EDT Images from the original note were not included. [facility] INTERNAL MEDICINE [facility] -EMERGENCY DEPT [address] [place] [id number] Hospital Medicine History & Physical Patient: Ike Flannery Date of : 1970 Room: ED PCP: RICHIE HANNA APRN-ESPERANZA Admission date: 12/02/2023 [...] chills and was sent by infectious disease [facility] Allergies: Meperidine, Daptomycin, and Adhesive Prior to [...] taking: Reported on 10/28/2023 03/07/22 Richie Hanna APRN-PLATE CONDITIONER capecitabine (XELODA) 500 mg chemo tablet Take by mouth after surgery Patient not taking: Reported on 10/16/2023 10/13/23 Not In System Ref Prov chlorthalidone (HYGROTON) 25 mg tablet Take 0.5 tablets (12.5 mg total) by mouth daily. 03/03/23 Not In System Ref Prov cyclobenzaprine (FLEXERIL) 10 mg tablet TAKE ONE TABLET BY MOUTH ONCE DAILY IN THE EVENING 04/28/23 Kaye Manuel RESTAURANT ASSISTANT MANAGER-SECURITY AND PRIVACY CONSULTANT dexAMETHasone (DECADRON) 1 mg tablet TAKE ONE TABLET BY MOUTH TWICE A DAY ON DAYS 3-6 AFTER CHEMOTHERAPY FOR FATIGUE Patient not taking: Reported on 10/16/2023 04/21/23 Not In System Ref Prov diazePAM (VALIUM) 5 mg tablet Take 1 tablet (5 mg total) by mouth every 6 (six) hours as needed formuscle spasms. 11/11/23 Marisela Cuevas, RESTAURANT ASSISTANT MANAGER-PLATE CONDITIONER DULoxetine (CYMBALTA) 30 mg capsule Take 1 [...] for 10 days. 11/29/23 12/09/23 Leelee Lieberman APRN-PLATE CONDITIONER ferrous sulfate 325 (65 FE) mg tablet [...] a past medical history of Breast cancer ([facility]) (2023), Deep vein thrombosis ([facility]) (09/18/2023), Hypertension, Knee pain, PONV (postoperative nausea [...] excision (Right, 10/28/2023); Mastectomy (Left, 10/28/2023); Tissue solar power installer placement (Bilateral, 10/28/2023); Lymph node dissection (Right, 10/28/2023); Tissue solar power installer removal (Left, 11/27/2023); and Incision and drainage [...] ear normal. Nose: Nose normal. Mouth/Throat: Lips: Finzel. Eyes: General: No scleral icterus. Extraocular Movements: [...] LIST Principal Problem: MIRNA (acute kidney injury) ([facility]) ASSESSMENT & PLAN Acute kidney injury, possibly [...] HOLLIS PA-C 12/03/2023 12:26 AM [facility] 7AM-7PM (all facilities): EpicChat or page through [employer]. 7PM-7AM ([facility], [facility] Psychiatry and Inpatient Rehab): EpicChat or page, [phone]. 7PM-7AM ([facility], [place], [place] and [facility] Rehab): EpicChat or page through Voc[employer]. [...] input. Elayne Chow MD documented in this encounterProMedica [facility] Physician Emergency department Note* Kayleigh Hartley, DO - 12/02/2023 10:13 PM EDT Images [...] her port since then and saw Dr. rGoss today. Patient states she started having a low grade fever and chills and was sent by infectious disease [facility] Inital Evaluation by Dr. Hartley at 10:13 PM. Pt is a 53 [...] to drink water. 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 by: Patient freelance interpreter/translator used?: No Problem List Items Addressed [...] 10/28/2023 Performed by Christy He MD at [facility] SUR[facility]ERY HYSTERECTOMY IMMEDIATE BREAST RECONSTRUCTION WITH TISSUE SUPERVISOR CURED MEATS PLACEMENT Bilateral 10/28/2023 Performed by Jhon Gross MD at [facility] INCISION DRAINAGE BREAST Left 11/27/2023 Performed by Jhon Gross MD at [facility] MAGNETIC SEED LOCALIZATION EXCISION/BIOPSY MASS BREAST (MAG SEED LOCALIZED TARGETED DISSECTION FOR RETRIEVAL OF PREVIOUSLY CLIPPED LYMPH NODE) Right 10/28/2023 Performed by Christy He MD at [facility] MASTECTOMY BREAST SIMPLE RISK REDUCING SKIN SPARING Left 10/28/2023 Performed by Christy He MD at [facility] MASTECTOMY BREAST SIMPLE SKIN SPARING Right 10/28/2023 Performed by Christy He MD at [facility] MENISCECTOMY Bilateral 2022 PORTACATH PLACEMENT Left left chest REMOVAL SUPERVISOR CURED MEATS TISSUE BREAST Left 11/27/2023 Performed by Jhon Gross MD at [facility] RIGHT AXILLARY PROPHYLACTIC BYPASS LYMPHOVENOUS Right 10/28/2023 Performed by Jhon Gross MD at [facility] TONSILLECTOMY AND ADENOIDECTOMY Age 3 TUMOR [...] of 12/09/23 1236 MIRNA (acute kidney injury) ([facility]) Infection of deep incisional surgical site after procedure, initial encounter 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 Hartley. Chart Reviewed. Date: (12/01). Type of Note: [...] bolus (1,000 mL intravenous New Bag 12/02/23 2237) Medication List None Diagnosis: 1. MIRNA (acute kidney injury) ([facility]) Disposition: Patient's disposition: Admit Patient's condition is stable. Critical Care time: Provider Statement By electronically signing this emergency patient record, the Emergency Physician/TONGSMAN/PA-C attests that all entries made into the electronic medical record by annamarie Pak prior to the Physician/TONGSMAN/PA-C signature reflect an accurate accounting of the evaluation and care rendered by that Malini cy Physician/TONGSMAN/PA-C. The Emergency Physician/TONGSMAN/PA-C assumes full responsibility for those entries. The Emergency Physician/TONGSMAN/PA-C also attests that any patient testing or treatment that was instituted by nursing staff in accordance to Emergency Department Preemptive Guidelines have been reviewed and unless so stated elsewhere in this patient chart, the Physician/TONGSMAN/PA-C agrees with the testing and care provided. Provider Statement: By electronically signing this emergency patient record, the Emergency Physician/TONGSMAN/PA-C attests that all entries made into the electronic medical record by the scribe prior to the Physician/TONGSMAN/PA-C signature reflect an accurate accounting of the evaluation and care rendered by that Emergency Physic milagro/TONGSMAN/PA-C. The Emergency Physician/TONGSMAN/PA-C assumes full responsibility for those entries. Jeff Becker 12/02/23 2221 Jeff Becker 12/02/23 2305 Kayleigh Hartley DO 12/05/23 4350 [facility]10-[facility] Emergency department Note* Kayleigh Hartley DO - 12/02/2023 10:13 PM EDT Images [...] [facility] by Dr. Hartley at 10:13 PM. Pt is a 53 [...] to drink water. 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 by: Patient freelance interpreter/translator used?: No Problem List Items Addressed This Visit None Past Medical History: Diagnosis Date Breast cancer ([facility]) 2023 mammary carcinoma Deep vein thrombosis ([facility]) 09/18/2023 Left calf Hypertension Knee pain PONV (postoperative nausea and vomiting) Port-A-Cath in place 05/13/2023 Visual impairment Glasses Past Surgical History: Procedure Laterality Date ARTHROSCOPIC REPAIR ACL Right 2006 ARTHROSCOPIC REPAIR ACL Left 08/26/2021 BREAST BIOPSY Right 2023 mammary carcinoma EXCISION LYMPH NODE AXILLARY DISSECTION Right 10/28/2023 Performed by Christy He MD at [facility] HYSTERECTOMY IMMEDIATE BREAST RECONSTRUCTION WITH TISSUE SUPERVISOR CURED MEATS PLACEMENT Bilateral 10/28/2023 Performed by Jhon Gross MD at [facility] INCISION DRAINAGE BREAST Left 11/27/2023 Performed by Jhon Gross MD at [facility] MAGNETIC SEED LOCALIZATION EXCISION/BIOPSY MASS BREAST (MAG SEED LOCALIZED TARGETED DISSECTION FOR RETRIEVAL OF PREVIOUSLY CLIPPED LYMPH NODE) Right 10/28/2023 Performed by Christy He MD at [facility] MASTECTOMY BREAST SIMPLE RISK REDUCING SKIN SPARING Left 10/28/2023 Performed by Christy He MD at [facility] MASTECTOMY BREAST SIMPLE SKIN SPARING Right 10/28/2023 Performed by Christy He MD at [facility] MENISCECTOMY Bilateral 2022 PORTACATH PLACEMENT Left left chest REMOVAL SUPERVISOR CURED MEATS TISSUE BREAST Left 11/27/2023 Performed by Jhon Gross MD at [facility] RIGHT AXILLARY PROPHYLACTIC BYPASS LYMPHOVENOUS Right 10/28/2023 Performed by Jhon Gross MD at [facility] TONSILLECTOMY AND ADENOIDECTOMY Age 3 TUMOR [...] of 12/09/23 1236 MIRNA (acute kidney injury) ([facility]) Infection of deep incisional surgical site after procedure, initial encounter 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 Hartley. Chart Reviewed. Date: (12/01). Type of Note: [...] bolus (1,000 mL intravenous New Bag 12/02/23 8733) Medication List None Diagnosis: 1. MIRNA (acute kidney injury) ([facility]) Disposition: Patient's disposition: Admit Patient's condition is stable. Critical Care time: Provider Statement By electronically signing this emergency patient record, the Emergency Physician/TONGSMAN/PA-C attests that all entries made into the electronic medical record by annamarie Pak prior to the Physician/TONGSMAN/PA-C signature reflect an accurate accounting of the evaluation and care rendered by that Malini sullivan Physician/TONGSMAN/PA-C. The Emergency Physician/TONGSMAN/PA-C assumes full responsibility for those entries. The Emergency Physician/TONGSMAN/PA-C also attests that any patient testing or treatment that was instituted by nursing staff in accordance to Emergency Department Preemptive Guidelines have been reviewed and unless so stated elsewhere in this patient chart, the Physician/TONGSMAN/PA-C agrees with the testing and care provided. Provider Statement: By electronically signing this emergency patient record, the Emergency Physician/TONGSMAN/PA-C attests that all entries made into the electronic medical record by the scribe prior to the Physician/TONGSMAN/PA-C signature reflect an accurate accounting of the evaluation and care rendered by that Emergency Physic milagro/TONGSMAN/INÉS. The Emergency Physician/TONGSMAN/PANicolasC assumes full responsibility for those entries. Jeff Becker 12/02/23 2221 Jeff Becker 12/02/23 2305 Kayleigh Hartley DO 12/05/23 2359 documented in this encounterProMedica [facility]10-02-2024 History of Present illness Narrative* AMEENA Vallejo - 12/02/2023 9:25 PM EDT 1300: spoke with Purvi RN from [facility] who received call from [facility] RN to report Vanco level of 33. She stated that infusion center RN then infused patient's vancomycin. Reportedly, patient had brought her vanco dose with her when she went to infusion center to get labs drawn and asked RN at center to residential support worker her vanco while she was there. Purvi stated she called [facility] to speak with pharmacist regarding vanco trough and that the patient received vanco dose. I called RN at infusion center (John) and provided clinic fax number to send lab results. AMEENA Vallejo 12/02/232132 documented in this encounterProMedica Flower Hospital10-02-2024 History of Present illness Narrative* AMEENA [...] I and D with removal of tissue solar power installer 11/27/2023 I have directed patient to the ER at this time for evaluation . Patient states she will report to [facility] ER Once she arrives to [facility] we would like the following: Consideration for admission Check Blood Cultures Check Creat Please contact our service for further direction ([facility] Infectious Disease, Dr Carlene Noguera) AMEENA Salazar 12/02/231940 documented in this encounterProMedica Flower Hospital10-02-2024 Miscellaneous Notes* Telephone Encounter - Kendra Lewis - 12/02/2023 7:20 PM EDT Contract: 174 RE Chills, Nausea, Fever 100.9 * Telephone Encounter - Kendra Lewis - 12/02/2023 7:20 PM EDT Secure chat sent to Shanice Shook CNP documented in this encounterProMedica Flower Hospital10-02-2024 Telephone encounter Note* Telephone Encounter - Kendra Lewis - 12/02/2023 7:20 PM EDT Contract: 174 RE Chills, Nausea, Fever 100.9 [facility]10-02-[facility] Telephone encounter Note* Telephone Encounter - Kendra Lewis - 12/02/2023 7:20 PM EDT Secure chat sent to Shanice Shook CNP [facility]10-02-[facility] History of Present illness Narrative* AMEENA [...] Discussed with bio script pharmacist Zohra from [facility]. AMEENA Gomez 12/02/23 191 documented in this encounterProMedica Flower Hospital10-02-2024 History of Present illness Narrative* Jhon Gross MD - 12/02/2023 10:00 AM EDT [facility] [address] Office Jhon Gross MD, PhD Marisela Cuevas, AMEENA Smallwood PA-C Plastic Surgery Progress Note Reason for visit : 1 week postoperative appointment. History of present illness: Ike Flannery 53 y.o. is here today for a follow up after I&D of left breast with removal of left breast tissue solar power installer on 11/27/2023. She presents to the office [...] air. Follow up next week for tissue solar power installer filled. She was advised to call the office any questions orconcerns in the interim. - Marisela Cuevas APRN-PLATE CONDITIONER 12/02/23 11:55 AM IJHON MD, PHD personally performed the face to face evaluation on this patient. I discussed with the patient and confirmed the accuracy and completeness of the aforementioned history,and I personally performed the clinical examination of the patient. I have established and discussed the course of treatment with the patient. Jhon Gross MD, PhD [facility] Total time spent was 15 minutes: Preparing to see the patient (e.g., review of tests) Obtaining and/or reviewing separately obtained history Performing a medically appropriate examination and/or evaluation Counseling and educating the patient/family/caregiver Ordering medications, tests, or procedures Referring and communicating with other health early breastfeeding care specialist (not separately reported) Documenting clinical information in the electronic or other health record Independently interpreting results (not separately reported) and communicating results to the patient/family/caregiver Care coordination (not separately reported) Please note that portions of this note were generated using voice recognition M*Modal dictation software. Although every effort was made to ensure the accuracy of this automated construction ironworker, some errors in construction ironworker may have occurred. documented in this encounterProMedica Flower Hospital10-02-2024 Miscellaneous Notes* Telephone Encounter - Elisa [...] I and D with removal of tissue solar power installer 11/27/2023 Discharge Specialty: Infectious Disease *Name of Discharging Facility: [facility] Date of Facility Discharge: Admission 11/26/23 Discharge 11/30/23 Date of Interactive Contact and Name of Tear Down Man: 12/02/23 1011 am Spoke to patient. She was at Dr. Barbosa office. Patient was agreeable for handbook writer to call back in the afternoon [...] pain and SOB. Patient is going to [facility] three days a week for [...] by the Patient: NA documented in this encounterNorth[facility] Telephone encounter Note* Telephone Encounter - Elisa [...] I and D with removal of tissue solar power installer 11/27/2023 Discharge Specialty: Infectious Disease *Name of Discharging Facility: [facility] Date of Facility Discharge: Admission 11/26/23 Discharge 11/30/23 Date of Interactive Contact and Name of Tear Down Man: 12/02/23 1011 am Spoke to patient. She was at Dr. Barbosa office. Patient was agreeable for handbook writer to call back in the afternoon [...] Up Appointments with Providers: Primary: RICHIE HANNA APRN-PLATE CONDITIONER Specialty: Infectious Disease 12/08/23 Specialty: Specialty: Review [...] pain and SOB. Patient is going to [facility] three days a week for [...] Other Services Utilized/Needed by the Patient: NA [facility]09-28-2024 Miscellaneous Notes* Telephone Encounter - Concha Mcgregor - 11/28/2023 6:45 PM EDT Contract: 206 [facility] 712 RE IV Reaction to meds * Telephone Encounter - Concha Mcgregor - 11/28/2023 6:45 PM EDT Contract: [address] Gross and connected call documented in this encounterProMedica Flower Hospital09-28-2024 Telephone encounter Note* Telephone Encounter - Concha Mcgregor - 11/28/2023 6:45 PM EDT Contract: 206 [facility] 712 RE IV Reaction to meds [facility]09-28-2024 Telephone encounter Note* Telephone Encounter - Concha Mcgregor - 11/28/2023 6:45 PM EDT Contract: [address] Gross and connected call [facility]09-26-20[facility] History of Present illness Narrative* Jhon Gross MD - 11/26/2023 11:45 AM EDT [facility] [address] Office Jhon Gross MD, PhD Marisela Cuevas, RESTAURANT ASSISTANT MANAGER-PLATE CONDITIONER Shereen Smallwood PA-C Plastic Surgery Progress Note [...] possible infected seroma in the setting tissue solar power installer reconstruction Recommendations: discussed with patient that given the appearance of her breast we would like to becautious and admit her to the hospital for IV antibiotics. Discussed that we have a suspicion for infection. We discussed that we would like to proceed with removal of her tissue solar power installer tomorrow and place a drain. We discussed since she does need post operative radiation that we would not want toplace a new tissue solar power installer. Direct admission has been started. Please note that portions of this note were generated using voice recognition M*Modal dictation software. Although every effort was made to ensure the accuracy of this automated construction ironworker, some errors in construction ironworker may have occurred. I, JHON GROSS MD, PHD personally performed the face to face evaluation on this patient. I discussed with the patient and confirmed the accuracy and completeness of the aforementioned history,and I personally performed the clinical examination of the patient. I have established and discussed the course of treatment with the patient. Jhon Gross MD, PhD [facility] Total time spent was 25 minutes: Preparing to see the patient (e.g., review of tests) Obtaining and/or reviewing separately obtained history Performing a medically appropriate examination and/or evaluation Counseling and educating the patient/family/caregiver Ordering medications, tests, or procedures Referring and communicating with other health early breastfeeding care specialist (not separately reported) Documenting clinical information in the electronic or other health record Independently interpreting results (not separately reported) and communicating results to the patient/family/caregiver Care coordination (not separately reported) documented in this encounterProMedica Flower Hospital09-25-2024 History of Present illness Narrative* AMEENA Kennedy - 11/25/2023 3:00 PM EDT [facility] [address] Office Jhon Gross MD, PhD Marisela Cuevas APRN-ESPERANZA Smallwood PA-C Plastic Surgery Progress Note Reason for visit : Tissue solar power installer fill and drain removal. History of present illness: Ike Flannery 53 y.o. is here today for a follow up after bilateral breast reconstruction with placement of tissue expanders. She presents to the office today for removal ARTEMIO drain and tissue solar power installer filled. She does need postoperative radiation therapy. [...] verbal consent was obtained, the left tissue solar power installer aspirate port, was identified using a magnet. This area was cleansed with alcohol, and Betadine. Then using a 25 gauge needle, approximately 150ml cloudy yellow appearing fluid was aspirated from the left tissue solar power installer. Patient tolerated well. Adequate hemostasis was achieved, and a sterile bandage was applied. Procedure note : Tissue solar power installer fill port, was identified using magnet. This area was cleansed with alcohol, and Betadine. Then using a 25 gauge needle, approximately 150ml normal saline was injected into right tissue solar power installer(s). Patient tolerated well. Adequate hemostasis was achieved, and a sterile bandage was applied. TOTAL FILL VOLUME: 250ML Impression: 1. Encounter for postoperative care 2. Acquired absence of breast, bilateral Recommendations: Right-sided ARTEMIO drain removed in office today. Patient tolerated well. Left tissue solar power installer was then aspirated. Patient tolerated well. Discussed given that has a slightly cloudy appearance that it will send this off for culture. Discussed this takes approximately 5 days to get results. I will contact her with these when they are available. Held off on filling her left tissue solar power installer in office today given fluid collection. Right tissue solar power installer filled performed. Patient tolerated well. Continue with [...] this note were generated using voice recognition [employer] dictation software. Although every effort was made to ensure the accuracy of this automated construction ironworker, some errors in construction ironworker may have occurred. AMEENA Kennedy 11/25/23 1719 documented in this encounterProMedica Flower Hospital09-18-2024 History of Present illness Narrative* AMEENA Kennedy - 11/18/2023 11:30 AM EDT [facility] [address] [...] routine postoperative appointment, drain removal and tissue solar power installer filled. She states that she is doing [...] drainsites appear benign. Procedure note : Tissue solar power installer fill port, was identified using magnet. This area was cleansed with alcohol, and Betadine. Then using a 25 gauge needle, approximately 100ml normal saline was injected into bilateral tissue solar power installer(s). Patient tolerated well. Adequate hemostasis was achieved, [...] removed in office today. Tubing intact. Tissue solar power installer fill was then performed. Patient tolerated well. [...] comfortable. Discussed it is okay to use [id number]-[id number]-[id number] acetaminophen or ibuprofen for pain after tissue solar power installer filled. Continue to refrain from anyheavy lifting pushing or pulling. Follow up next week for drain removal And possible tissue solar power installer filled. She was advised to call the office with any questions or concerns in the interim. - AMEENA Rand 11/18/23 1:15 PM Please note that portions of this note were generated using voice recognition M*Mappyfriends dictation software. Although every effort was made to ensure the accuracy of this automated construction ironworker, some errors in construction ironworker may have occurred. AMEENA Kennedy 11/18/23 1316 documented in this encounterProMedica Flower Hospital09-11-2024 History of Present illness Narrative* AMEENA Kennedy - 11/11/2023 1:30 PM EDT [facility] [address] Office Jhon Gross MD, PhD [...] week for possible drain removal and tissue solar power installer filled. Advised to call the office any questions or concerns in the interim. - AMEENA Rand 11/11/23 2:27 PM Please note that portions of this note were generated using voice recognition M*Modal dictation software. Although every effort was made to ensure the accuracy of this automated construction ironworker, some errors in construction ironworker may have occurred. AMEENA Kennedy 11/11/23 1427 documented in this encounterSt. John of God HospitalVaybee [id number] Miscellaneous Notes* Addendum Note - AMEENA Kennedy - 11/11/2023 1:30 PM EDT Addended by: MARISELA CUEVAS on: 11/11/2023 02:38 PM Modules accepted: Orders documented in this encounterProMedica Flower Hospital09-11-2024 Note* Addendum Note - AMEENA Kennedy - 11/11/2023 1:30 PM EDTAddended by: MARISELA CUEVAS on: 11/11/2023 02:38 PM Modules accepted: Orders [facility]09-04-[facility] History of Present illness Narrative* AMEENA Kennedy - 11/04/2023 11:00 AM EDT [facility] [address] Office Jhon Gross MD, PhD Marisela Cuevas APRNESPERANZA Smallwood PA-C Plastic Surgery Progress Note Reason [...] needs radiation therapy. Discussed deflated contralateral tissue solar power installer prior to radiation simulation. Encouraged patient tosupplement with protein given she is having a slight decreased appetite. Continue to stay well hydrated. Follow-up in 1 week for possible drain removal. She was advised to call the office any questions orconcerns in the interim. - AMEENA Rand 11/04/23 11:17 AM Please note that portions of this note were generated using voice recognition [employer]og[employer]*Mappyfriends dictation software. Although every effort was made to ensure the accuracy of this automated construction ironworker, some errors in construction ironworker may have occurred. AMEENA Kennedy 11/04/23 1143 documented in this encounterProMedica Flower Hospital08-23-2024 History of Present illness Narrative* KHLOE Yoder - 10/23/2023 2:12 PM EDT PCI Social Work Check request submitted x3. Tire Debeader sent correspondence to patient to update her. - KHLOE Yoder 10/23/23 2:12 PM documented in this encounterMer[facility] [id number] History of Present illness Narrative* KHLOE Yoder - 10/20/2023 2:38 PM EDT [employer] Work Vendor packet submitted.- KHLOE Yoder 10/20/23 2:39 PM documented in this [facility]08-16-2024 History of Present illness Narrative* Niurka Stockton [...] of all information reviewed. documented in this encounterProMedica Flower Hospital08-16-2024 History of Present illness Narrative* KHLOE Yoder - 10/16/2023 1:58 PM EDT [employer] Work Spoke with patient. Foundation request made. Add change submitted. - KHLOE Yoder 10/16/23 1:59 PM documented in this [facility]08-16-2024 History and physical note* AMEENA Marin - 10/16/2023 11:00 AM EDT PRE-ADMISSION TESTING HISTORY AND PHYSICAL EXAM DATE: 10/16/23 PCP: AMEENA GARCIA HISTORY OF PRESENT ILLNESS: Ike Flannery, a 53 y.o. White or female, presents to [facility] for a pre-surgical H&P. The patient has [...] Past Medical History: Diagnosis Date Breast cancer ([facility]) 2023 mammary carcinoma Deep vein thrombosis ([facility]) 09/18/2023 Left calf Hypertension Knee pain PONV [...] the most recent lab values available in [facility] at the time ofthe office [...] Risk Reducing Skin Sparing - Left Exchange Assistant Research Scientist Tissue Breast - Bilateral Skin Plasty Tissue Rearrangement (De Epithelialized Inferior Autoderm Flap 29918) - Bilateral Bypass LymphovenousProphylactic(Psb) - Right with Dr. He and Dr. Gross. AMEENA Marin 10/16/23 1404 [employer] Work Phone: 1(415) 203-716508-16-2024 History and physical note* AMEENA Marin - 10/16/2023 11:00 AM EDT PRE-ADMISSION TESTING HISTORY AND PHYSICAL EXAM DATE: 10/16/23 PCP: AMEENA GARCIA HISTORY OF PRESENT ILLNESS: Ike Flannery, a 53 y.o. White or female, presents to [facility] for a pre-surgical H&P. The patient has [...] Past Medical History: Diagnosis Date Breast cancer ([facility]) 2023 mammary carcinoma Deep vein thrombosis (CMS-HCC) [...] the most recent lab values available in [facility] at the time ofthe office [...] Risk Reducing Skin Sparing - Left Exchange Assistant Research Scientist Tissue Breast - Bilateral Skin Plasty Tissue Rearrangement (De Epithelialized Inferior Autoderm Flap 37957) - Bilateral Bypass LymphovenousProphylactic(Psb) - Right with Dr. He and Dr. Gross. AMEENA Marin 10/16/23 1400 documented in this encounterProMedica Flower Hospital08-16-2024 Instructions* Patient Instructions* Isabell Merrill RN - 10/16/2023 11:00 AM EDT Your surgery/procedure is scheduled at [facility] on 10-28-2023 at 7:30am Arrival Time 5:30am [facility] Address: [address] [place] [address], [address] [place] [address] in the Emergency Center Parking lot. Report to the front desk assistant in the Emergency/Surgery Registration lobby of the hospital. Please call Pre-Admission Clinic at [phone] if you have any questions prior to surgery. For questions the morning of surgery, please call the Pre-op Department at [phone]. Notify your SURGEON if you develop any [...] would like to schedule therapy at a [facility] facility, please call [phone] ([phone]). Do not use lotions, creams, powders, perfume, make up, cologne or after-shaves day of surgery. Remove ALL jewelry including wedding rings, body piercings, hair extensions that contain metal, nail tajik, make-up, and contact lens. You may brush your teeth the morning of surgery, but do not swallow the water. Wear your dentures and partial plates to the hospital (no adhesive). Shower the night the before. If applicable, use the CHG (chlorhexidine gluconate) soap or wipes. Please be advised, [facility] has transitioned to a cashless payment [...] RIGHTS AND RESPONSIBILITIES As a patient at [facility], you have the right to: Receive medical care and be informed of who is taking care of you Be treated with dignity and respect Have a family member/telephone service representative of choice and your physician notified of your admission Receive information and actively participate in decisions about your care and treatment Refuse care, treatment and services Decide who may provide your support and speak for you Access roman catholic and spiritual services Participate in ethical issues [...] of hospital charges and payment methods Patient/patient telephone service representative responsibilities are to: Provide information about [...] surgery in clean clothes. documented in this encounterProMedica Flower Hospital08-14-2024 History of Present illness Narrative* KHLOE Yoder - 10/14/2023 11:59 PM EDT PCI Social Work Corresponded regarding foundation assistance. - KHLOE Yoder 10/16/23 10:28 AM documented in this encounterProMedica Flower Hospital07-30-2024 History of Present illness Narrative* KHLOE Yoder - 09/29/2023 2:38 PM EDT PCI Social Work Corresponded with patient regarding foundation assistance. - KHLOE Yoder 09/29/23 2:40 PM documented in this encounterProMedica Flower Hospital07-29-2024 Miscellaneous Notes* Telephone Encounter - Ana Ibrahim - 09/28/2023 11:06 AM EDT Can she set up wellness this year * Telephone Encounter - Ana Ibrahim - 09/28/2023 11:06 AM EDT Sent mychart msg * Telephone Encounter - Anaalfredo Ibrahim - 09/28/2023 11:06 AM EDT LM on VM * Telephone Encounter - Anaalfredo Ibrahim - 09/28/2023 11:06 AM EDT LM on VM documented in this encounterProMedica Flower Hospital07-29-2024 Telephone encounter Note* Telephone Encounter - Ana Ibrahim - 09/28/2023 11:06 AM EDT Can she set up wellness this year [facility]07-29-2024 Telephone encounter Note* Telephone Encounter - Ana Ibrahim - 09/28/2023 11:06 AM EDT Sent mychart msg [facility]07-29-2024 Telephone encounter Note* Telephone Encounter - Ana Ibrahim - 09/28/2023 11:06 AM EDT LM on VM [facility]07-29-2024 Telephone encounter Note* Telephone Encounter - Ana Ibrahim - 09/28/2023 11:06 AM EDT LM on VM [facility]06-20-[facility] History of Present illness Narrative* KHLOE Yoder - 08/20/2023 11:59 PM EDT PCI Social Work *late entry* Met with patient per planned appointment. Patients significant other present as well. Tire Debeader explored needs, focusing on financial. Discussed options and resources. Await patient to provide handbook writer with financial statements support request. - KHLOE Yoder 08/27/23 8:54 AM documented in this encounterProMedica Flower Hospital06-20-2024 History of Present illness Narrative* Jhon Gross MD - 08/20/2023 10:00 AM EDT [facility] [address] Office Jhon Gross MD, PhD Marisela Cuevas APRN-ESPERANZA Smallwood PA-C Plastic Surgery New Patient Consultation [...] 60 min Stress: Stress Concern Present (02/27/2022) [place] [employer] - Occupational Stress Questionnaire [...] Interpersonal Safety: Unknown (05/28/2023) Received from [facility] Fear of Current or [...] to chemo.). Gastrointestinal: Negative. Musculoskeletal: Negative. Skin: Finzel coloration to right breast since chemo has [...] Her breast mass is palpable central breast. Finzel discoloration to right breast with out induration. Right breast is more contracted up. Breast tissue is Intertriginous rash in inframammary folds absent. Shoulder grooves are present. MEASUREMENTS: Left Right Base width: 14.5 cm Sternal Notch to Nipple: 26 cm 23 cm IMF to Nipple: 6.5 cm 5 cm Nipple to Nipple 23 cm Nipple-areolar diameter 4 cm 4 cm Female route sales specialist present: yes. Impression : 1. Malignant neoplasm [...] this note were generated using voice recognition M*Mappyfriends dictation software. Although every effort was made to ensure the accuracy of this automated construction ironworker, some errors in construction ironworker may have occurred. IJHON MD, PHD personally performed the face to face evaluation on this patient. I discussed with the patient and confirmed the accuracy and completeness of the aforementioned history,and I personally performed the clinical examination of the patient. I have established and discussed the course of treatment with the patient. Jhon Gross MD, PhD [facility] Total time spent was 50 minutes: Preparing to see the patient (e.g., review of tests) Obtaining and/or reviewing separately obtained history Performing a medically appropriate examination and/or evaluation Counseling and educating the patient/family/caregiver Ordering medications, tests, or procedures Referring and communicating with other health early breastfeeding care specialist (not separately reported) Documenting clinical information in the electronic or other health record Independently interpreting results (not separately reported) and communicating results to the patient/family/caregiver Care coordination (not separately reported) documented in this encounterProMedica Flower Hospital06-06-2024 History of Present illness Narrative* KHLOE Yoder - 08/06/2023 3:20 PM EDT PCI Social Work Patient returned writers phone call. Introduced self and explained role. Explored needs/concerns. Patient will be having surgery in the coming months after she completes her chemotherapy. Has concerns about finances as she will have time off of work and does not have short term disability. Tire Debeader/SW offered to meet with patient when she at [facility] for her next appointment on 08/19 to explore resources/assistance further. Patient agreed to this. Support provided. - KHLOE Yoder 08/06/23 3:24 PM documented in this encounterProMedica Flower Hospital06-03-2024 History of Present illness Narrative* KHLOE Yoder - 08/03/2023 1:36 PM EDT PCI Social Work Referral- Tire Debeader followed up, placed call to patient. No answer. Tire Debeader left voicemail and call back number. - KHLOE Yoder 08/03/23 1:38 PM documented in this encounterProMedica Flower Hospital05-30-2024 History of Present illness Narrative* Christy He MD - 07/30/2023 3:00 PM EDT Images from the original note were not included. 07/30/2023 DIAGNOSIS: Ike Flannery is a 52 y.o. female who presents to the Breast Surgery Clinic for evaluation and mid chemo discussion regarding her recently diagnosed right breast cancer, IDC grade 3, ER weakly+, NC -, Her 2 Negative (IHC score 0). [...] genetic testing? Yes Do you have Ashkenazi Gnosticism ancestry? No HEALTH HISTORY: The patient's past medical history, medications, and allergies have been reviewed in [facility]. PAST MEDICAL HISTORY: Past Medical [...] right breast of female, estrogen receptor positive ([facility]) Yes DIAGNOSIS: Ike Flannery is a 52 y.o. 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 Although every effort was made to ensure the accuracy of this automated construction ironworker, some errors in construction ironworker may have occurred. Christy He MD [facility] [phone] documented in this encounterProMedica Flower Hospital03-21-2024 Miscellaneous Notes* Tumor Conference Note - [...] guided, right breast 4 o'clock, core biopsy ([facility]: re-read TTH): 11mm, invasive ductal carcinoma with areas of necrosis grade 3 score=8. LVI negative. ER12-15% NC- HER2/Yohan by IHC negative 0. Patient Presentation: patient palpated lump - - > abnormality seen on imaging; right axillary lymphadenopathy on CBE Cancer Staging Malignant neoplasm of lower-inner quadrant of right breast of female, estrogen receptor positive (CMS-HCC) Staging form: Breast, AJCC 8th Edition - Clinical: Stage IIIC (cT2, cN3, cM0, G3, ER+, NC-, HER2-) - Signed by Christy He MD [...] regarding trials, Please call Clinical Research at [phone] National Guidelines discussed (NCCN, AUA, NCI, etc): [...] can be directed to the Cancer Registry: [phone] documented in this encounterProMedica Flower Hospital03-21-2024 Progress note* Tumor Conference Note - [...] guided, right breast 4 o'clock, core biopsy ([facility]: re-read TTH): 11mm, invasive ductal carcinoma with areas of necrosis grade 3 score=8. LVI negative. ER12-15% NC- HER2/Yohan by IHC negative 0. Patient Presentation: patient palpated lump - - > abnormality seen on imaging; right axillary lymphadenopathy on CBE Cancer Staging Malignant neoplasm of lower-inner quadrant of right breast of female, estrogen receptor positive (CMS-HCC) Staging form: Breast, AJCC 8th Edition - Clinical: Stage IIIC (cT2, cN3, cM0, G3, ER+, NC-, HER2-) - Signed by Christy He MD [...] regarding trials, Please call Clinical Research at [phone] National Guidelines discussed (NCCN, AUA, NCI, etc): [...] can be directed to the Cancer Registry: [phone] [facility] Work Phone: 1(528) 428-735303-14-2024 Miscellaneous Notes* Telephone Encounter - Niurka Stockton [...] Voices understanding. Support offered. documented in this encounterSt. John of God HospitalCupoint03-14-2024 Telephone encounter Note* Telephone Encounter - Niurka [...] at biopsy site. Voices understanding. Support offered. [facility]03-12-2024 Miscellaneous Notes* Telephone Encounter - Ike Irvin RN - 05/12/2023 7:51 AM EDT Notified Emiliana at Dr He office faxing over reports. documented in this encounterProMedica Flower Hospital03-12-2024 Telephone encounter Note* Telephone Encounter - Ike Irvin RN - 05/12/2023 7:51 AM EDT Notified Emiliana He office faxing over reports. [facility] iCabbi [id number] History of Present illness Narrative* Niurka Stockton [...] of all information reviewed. documented in this encounterProMedica Flower Hospital02-27-2024 History of Present illness Narrative* Christy He MD - 04/28/2023 8:00 AM EST Images from the original note were not included. 04/28/23 DIAGNOSIS: Ike Flannery is a 52 y.o. female who presents to the Breast Surgery Clinic for evaluation and recommendations regarding her recently diagnosed right breast cancer, IDC grade 3, ER weakly +, NC -, Her 2 Negative (IHC score 0). [...] genetic testing? Yes Do you have Ashkenazi Gnosticism ancestry? No HEALTH HISTORY: The patient's past medical history, medications, and allergies have been reviewed in [facility]. PAST MEDICAL HISTORY: Past Medical [...] 3 right breast invasive carcinoma, ER weakly positive/NC negative, Her-2 negative. Cancer Staging No matching [...] Need right ax biopsy Referral placed to [facility] rad onc RV 3 months, [...] procedures Referring and communicating with other health early breastfeeding care specialist (not separately reported) Documenting clinical information in the electronic or other health record Independently interpreting results (not separately reported) and communicating results to the patient/family/caregiver Please note that portions of this note were generated using voice recognition M*Modal dictation software. Although every effort was made to ensure the accuracy of this automated construction ironworker, some errors in construction ironworker may have occurred. Christy He MD [facility] [phone] documented in this encounterSt. John of God HospitalFoxGuard Solutions [facility] [id number] History of Present illness Narrative* Catie Walker, PACKING MACHINE FEEDER - 04/02/2023 11:30 AM EST Reason for Appointment: Patient ID: Ike Eason Widman is a 52 y.o. female who presents for abnormal test results (Discuss the results of her abnormal mammogram results done @ [facility]) Patient presents today for Consult appointment. [...] nursing note reviewed. Exam conducted with a route sales specialist present. Vitals: Estimated body mass index is [...] diagnostic right breast mammogram done at [facility] on 03/20/23. Results were highly suggestive of malignancy and radiology recommended that patient obtain an ultrasound guided breast biopsy. Patient had ultrasound guided right breast biopsy obtained at [facility] on 03/26/23, biopsy was sent to pathology at [facility]. Reviewed results with patient and [...] patient that letter will be sent via [facility] and if patient does not hear from pharmacy retail support specialist by the time she receives letter to contact Specialist to schedule. Advised patient on VM to call office with any questions. --Catie Johnson LPN documented in this encounterFitzgibbon [id number] Hospital Discharge instructions Patient Education 07/14/2022 14:20:40 [...] numbers. This can be done either in [place] ([place] or metric measurements. Note that charts and online BMI calculators are available to help you find your BMI quickly and easily without having to do these calculations yourself. To calculate your BMI in [place] ([place] measurements: 1.Measure your weight in pounds [...] Centers for Disease Control and Prevention: www.cdc.gov [place] Heart Association: www.heart.org National Heart, Lung, and Blood [place]: www.nhlbi.nih.gov Summary Body mass index (BMI) is a number that is calculated from a person's weight and height. BMI may help estimate how much of a person's weight is composed of fat. BMI can help identify thosewho may be at higher risk for certain medical problems. BMI can be measured using Egyptian measurements or metric measurements. BMI charts are used to identify whether you are underweight, normal weight, overweight, or obese. This information is not intended to replace advice given to you by your health care provider. Make sure you discuss any questions you have with your health care provider. Document Revised: 11/09/2019 Document Reviewed: 09/16/2019 [employer] Patient Education 2022 [employer]. 07/14/2022 14:20:38 Upper Respiratory Infection, Adult Upper [...] medicines to help relieve symptoms, such as: Zmkh-rxn-tbwzxzb cold medicines. Cough suppressants. Coughing is a [...] and other clear broths. General instructions Take fflg-teq-tbancxo and prescription medicines only as told by [...] and water are not available, use hand slot floor supervisor. Avoid touching your mouth, face, eyes, or [...] provider. Document Revised: 09/18/2021 Document Reviewed: 09/18/2021 [employer] Patient Education 2022 [employer]ak[employer]it. Follow Up Care 07/14/2022 13:35:56 With:BRENNON JAMESON, BOBBY Sifuentes Address:Unknown When: Unknown [facility] 09-13-2022 History general Narrative - Reported* Type Description Date Medical History heart dysrythmia Medical History Night sweats Medical History Insomnia, unspecified type Medical History hypertension Surgical History hysterectomy dec 2003 Surgical History acl reconstruction right knee n ov 2004 Surgical History leg dec 2014 Hospitalization History see above [facility] Other 09-12-2022 Evaluation note* Encounter Date Diagnosis [...] weeks for the cough to go away [facility] Other 06-28-2022 Note [id number]06-28-2022 [id number] 08-26-[address] [facility] SURGERY Clinical Discharge Summary PERSON INFORMATION Name IKE FLANNERY Age 50 Years 1970 Sex FEMALE Language Egyptian PCP RANDY CALLE Marital Status Med Service Ambulatory Surgery Acct# Arrival 08/26/2021 11:01:00 Visit Reason SURGERY- LEFT KNEE SCOPE Acuity LOS 003 04:51 Address: [address] [place] [address] Comment: PROVIDER INFORMATION VITALS INFORMATION Vital Sign Triage Latest Temp Oral Temp Temporal Temp Intravascular Temp Axillary Temp Rectal 02 Sat 100 % 97 % Respiratory Rate Peripheral Pulse Rate Apical Heart Rate Blood Pressure / 90 mmHg / 103 mmHg Comment: MEDICAL INFORMATION Allergy Info: Adhesive Bandage; Demerol Prescriptions Given: acetaminophen-hydrocodone (!-Coweta 5 mg-325 mg oral tablet) 1 tab(s) [...] Oral every day. potassium chloride (Potassium Chloride (Ctr-Bnrd-Wka 10) 10 mEq oral tablet, extended release) 1 tab(s) Oral every day. traZODone (traZODone 50 mg oral tablet) 1 tab(s) Oral once a day (at bedtime). Medication List: Medications to Continue That Have Not Changed Other Medications acetaminophen-hydrocodone (!-Coweta 5 mg-325 mg oral tablet) 1 tab(s) Oral Every 6 hours as needed as needed for pain. carvedilol (carvedilol 12.5 mg oral tablet) 1 tab(s) Oral 2 times a day. cyclobenzaprine (cyclobenzaprine 10 mg oral tablet) 1 tab(s) Oral At bedtime as needed for spasm. hydroCHLOROthiazide (hydroCHLOROthiazide 25 mg oral tablet) 1 tab(s) Oral every day. potassium chloride (Potassium Chloride (Ylg-Uggp-Jyq 10) 10 mEq oral tablet, extended release) 1 tab(s) Oral every day. traZODone (traZODone 50 mg oral tablet) 1 tab(s) Oral once a day (at bedtime). Medications to Continue That Have Not Changed Other Medications acetaminophen-hydrocodone (!-Coweta 5 mg-325 mg oral tablet) 1 tab(s) Oral Every 6 hours as needed as needed for pain. carvedilol (carvedilol 12.5 mg oral tablet) 1 tab(s) Oral 2 times a day. cyclobenzaprine (cyclobenzaprine 10 mg oral tablet) 1 tab(s) Oral At bedtime as needed for spasm. hydroCHLOROthiazide (hydroCHLOROthiazide 25 mg oral tablet) 1 tab(s) Oral every day. potassium chloride (Potassium Chloride (Rox-Tioo-Fgm 10) 10 mEq oral tablet, extended release) 1 tab(s) Oral every day. traZODone (traZODone 50 mg oral tablet) 1 tab(s) Oral once a day (at bedtime). Medications to Continue That Have Not Changed Other Medications acetaminophen-hydrocodone (!-Coweta 5 mg-325 mg oral tablet) 1 tab(s) Oral Every 6 hours as needed as needed for pain. carvedilol (carvedilol 12.5 mg oral tablet) 1 tab(s) Oral 2 times a day. cyclobenzaprine (cyclobenzaprine 10 mg oral tablet) 1 tab(s) Oral At bedtime as needed for spasm. hydroCHLOROthiazide (hydroCHLOROthiazide 25 mg oral tablet) 1 tab(s) Oral every day. potassium chloride (Potassium Chloride (Uee-Zsvy-Jah 10) 10 mEq oral tablet, extended release) [...] PATIENT EDUCATION INFORMATION Instructions: [facility] Follow up: DIAGNOSIS Internal derangement of left knee Comment: PHYS DOC [facility]06-16-[address] [facility] SURGERY Clinical Discharge Summary PERSON INFORMATION Name IKE FLANNERY Age 50 Years 1970 Sex FEMALE Language Egyptian PCP RANDY CALLE Marital Status Med Service Ambulatory Surgery Acct# Arrival Visit Reason SURGERY - LEFT KNEE SCOPE Acuity LOS 010 03:19 Address: [address] [place] [id number] Comment: PROVIDER INFORMATION VITALS INFORMATION Vital Sign [...] Oral every day. potassium chloride (Potassium Chloride (Tkh-Rnls-Vxv 10) 10 mEq oral tablet, extended release) 1 tab(s) Oral every day. traZODone (traZODone 50 mg oral tablet) 1 tab(s) Oral once a day (at bedtime). Medication List: Medications That Were Updated - Follow Below Instructions Other Medications Updated: potassium chloride (Potassium Chloride (Mzy-Kugn-Kud 10) 10 mEq oral tablet, extended release) [...] Other Medications Updated: potassium chloride (Potassium Chloride (Kig-Vwck-Soh 10) 10 mEq oral tablet, extended release) [...] Other Medications Updated: potassium chloride (Potassium Chloride (Crl-Koqs-Dql 10) 10 mEq oral tablet, extended release) [...] up: With: Address: When: MYESHA VINSON [address] [facility], [place] [address] Business (1) 09/03/2021 9:15 AM With: Address: When: [place] [address] Business (1) Type Location Start Finish State Lab Collection (MAGR) LAB 08/21/2021 4:00 PM 08/21/2021 4:10 PM Confirmed Surgery (MAGR) [facility] [place] 08/26/2021 1:00 PM 08/26/2021 1:30 PM Confirmed DIAGNOSIS Comment: PHYS DOC [facility]11-24-2021 Note [id number] [id number] 01-21-[address] [facility] SURGERY Clinical Discharge Summary PERSON INFORMATION Name IKE FLANNERY Age 50 Years 1970 Sex FEMALE Language Egyptian PCP RANDY CALLE Marital Status Med Service Ambulatory Surgery Acct# Arrival 01/21/2021 06:05:01 Visit Reason SURGERY - RIGHT KNEE ARTHROSCOPY Acuity LOS 032 23:00 Address: [address] [place] [id number] Comment: PROVIDER INFORMATION VITALS INFORMATION Vital Sign [...] up: With: Address: When: MYESHA VINSON [address] [place], [place] [id number] [facility] () 01/30/2021 11:00 AM With: Address: When: [place] [address] Business (1) DIAGNOSIS Internal derangement of right knee; Tear of meniscus of right knee Comment: AGUSTIN ROQUE [facility]11-19-2021 NoteSpoke to pt on phone regarding upcoming procedure. pt aware to be here at 6am, NPO after midnight, and need for ride after procedure. pt verbalizes understanding. [Electronically Signed on: 01/18/2021 11:03 EST] Jen Khoury RN [Verified on: 01/18/2021 11:03 EST] Jen Khoury [facility] No data available for this section [facility] Evaluation + Plan note Future Appointments Appointment Date:04/10/2023 03:20:00 PM Scheduled Provider:Sandrita WILLETT MD Location:[facility] ([facility] [address]ointment Type[address] noteNo assessment information available [facility] Work Phone: Evaluation note* Diagnosis Mammogram abnormal Abnormal mammogram, unspecified Invasive ductal carcinoma of breast, right (CMS/HCC) [facility] Diagnosis Onset Date Resolution Status Breast cancer, right acute [facility] Work Phone: Evaluation note* Diagnosis Onset Date Resolution Status Breast cancer, right acute Breast cancer, right acute [facility] Work Phone: Evaluation note* Diagnosis Onset Date Resolution Status Breast cancer, right acute Breast cancer, right acute Breast cancer, right acute [facility] Work Phone: Evaluation note* Diagnosis Retinal tear of right eye- Primary Vitreous hemorrhage of right eye (CMS/HCC) Vitreous hemorrhage documented in this encounter [facility]* Diagnosis Adverse effect of doxycycline, initial encounter- Primary documented in this encounter [facility]* Diagnosis Anaphylaxis, subsequent encounter- Primary documented in this encounter [facility]* Diagnosis Encounter to discuss procedure documented in this encounter [facility]* Diagnosis Pre-op examination H/O malignant neoplasm of breast documented in this encounter [facility]* Diagnosis Encounter for postoperative care- Primary S/P breast reconstruction, bilateral Mycobacterium abscessus infection Breast wound, left, sequela [facility] Diagnosis Sensorineural hearing loss (SNHL) of both ears- Primary documented in this encounter [facility]* Diagnosis Encounter for postoperative care- Primary Seroma of breast S/P breast reconstruction, bilateral Mycobacterium abscessus infection Breast wound, left, sequela [facility] Diagnosis Malignant neoplasm of lower-inner quadrant of right breast of female, estrogen receptor positive (CMS-HCC)- Primary Pelvic mass in female [facility] Diagnosis Malignant neoplasm of lower-inner quadrant of right breast of female, estrogen receptor positive (CMS-HCC)- Primary [facility] Diagnosis Malignant neoplasm of lower-inner quadrant of right breast of female, estrogen receptor positive (CMS-HCC) [facility] Diagnosis Malignant neoplasm of lower-inner quadrant of right breast of female, estrogen receptor positive (CMS-HCC)- Primary Mass of lower inner quadrant of right breast Malignant neoplasm of lower-inner quadrant of right breast of female, estrogen receptor positive (CMS-HCC) [facility] Diagnosis 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 [facility] Diagnosis Encounter for postoperative care- Primary Malignant neoplasm of lower-inner quadrant of right breast of female, estrogen receptor positive (CMS-HCC) Acquired absence of breast, bilateral S/P breast reconstruction, bilateral [facility] Diagnosis 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 [facility]* Diagnosis MIRNA (acute kidney injury) [...] site after procedure [facility] Diagnosis Encounter for postoperative care- Primary S/P breast reconstruction, bilateral Malignant neoplasm of lower-inner quadrant of right breast of female, estrogen receptor positive (CMS-HCC) Acquired absence of breast, bilateral [facility] Diagnosis Encounter for postoperative care- Primary Acquired absence of breast, bilateral S/P breast reconstruction, bilateral Infection of breast implant, subsequent encounter [facility] Diagnosis Malignant neoplasm of lower-inner quadrant of right breast of female, estrogen receptor positive (CMS-HCC)- Primary [facility]* Diagnosis Encounter for postoperative care- Primary Malignant neoplasm of lower-inner quadrant of right breast of female, estrogen receptor positive (CMS-HCC) Acquired absence of breast, bilateral S/P breast reconstruction, bilateral [facility] Diagnosis Encounter for postoperative care- Primary Acquired absence of breast, bilateral S/P breast reconstruction, bilateral [facility] Diagnosis Encounter for postoperative care- Primary Acquired absence of breast, bilateral [facility]* Diagnosis Infection of deep incisional surgical site after procedure, subsequent encounter- Primary Malignant neoplasm of lower-inner quadrant of right breast of female, estrogen receptor positive (CMS-HCC) [facility]* Diagnosis Encounter for postoperative care- Primary Acquired absence of breast, bilateral S/P breast reconstruction, bilateral Infection of breast implant, subsequent encounter [facility]* Diagnosis Cellulitis of left breast- Primary S/P breast reconstruction, bilateral [facility]* Diagnosis Encounter for postoperative care- Primary Seroma of breast S/P breast reconstruction, bilateral Breast wound, left, sequela [facility]* Diagnosis Postoperative follow-up Follow-up examination, following unspecified surgery documented in this encounter [facility]* Diagnosis Mycobacterium abscessus infection- Primary S/P breast reconstruction, bilateral Malignant neoplasm of lower-inner quadrant of right breast of female, estrogen receptor positive (CMS-HCC) [facility]* Diagnosis Postoperative visit- Primary Mycobacterium abscessus infection S/P breast reconstruction, bilateral Malignant neoplasm of lower-inner quadrant of right breast of female, estrogen receptor positive (CMS-HCC) [facility]* Diagnosis Breast wound, left, sequela- Primary [facility]* Diagnosis Encounter for postoperative care- Primary Breast wound, left, sequela Seroma of breast Mycobacterium abscessus infection S/P breast reconstruction, bilateral [facility]* Diagnosis Well woman exam with routine gynecological exam Routine gynecological examination Breast cancer screening by mammogram Postmenopausal state Asymptomatic postmenopausal status (age-related) (natural) documented in this encounter [facility]* Diagnosis Malignant neoplasm of lower-inner quadrant of right breast of female, estrogen receptor positive (CMS-HCC)- Primary Pelvic mass in female [facility]* Diagnosis Encounter for postoperative care- Primary Breast wound, left, sequela Erythema of breast Seroma of breast Mycobacterium abscessus infection S/P breast reconstruction, bilateral Acquired absence of breast, bilateral History of breast cancer Personal history of malignant neoplasm of breast [facility]* Diagnosis Encounter for postoperative care- Primary Breast wound, left, sequela [facility]* Diagnosis Encounter for postoperative care- Primary Seroma of breast S/P breast reconstruction, bilateral Breast wound, left, sequela [facility]* Diagnosis Pelvic mass in female- Primary [facility]* Diagnosis Encounter for postoperative care- Primary Seroma of breast Breast wound, left, sequela Mycobacterium abscessus infection S/P breast reconstruction, bilateral [facility]* Diagnosis Encounter for postoperative care- Primary Seroma of breast Breast wound, left, sequela S/P breast reconstruction, bilateral [facility]* Diagnosis Encounter for postoperative care- Primary Breast wound, left, sequela S/P breast reconstruction, bilateral Mycobacterium abscessus infection [facility] Diagnosis Malignant neoplasm of lower-inner quadrant of right breast of female, estrogen receptor positive (CMS-HCC)- Primary Mycobacterium abscessus infection Essential hypertension Unspecified essential hypertension Acute deep vein thrombosis (DVT) of calf muscle vein of left lower extremity (CMS-HCC) S/P right heart catheterization documented [facility]* Diagnosis Pelvic mass in female- Primary [facility]* Diagnosis Abscess- Primary Cellulitis and abscess of unspecified site 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 [facility] Diagnosis Mycobacterium abscessus infection- Primary Malignant neoplasm of lower-inner quadrant of right breast of female, estrogen receptor positive ([facility]) [facility]* Diagnosis Breast wound, left, sequela- Primary Complicated wound infection [facility]* Diagnosis Breast wound, left, sequela- Primary Complicated wound infection [facility] Diagnosis Breast wound, left, sequela- Primary Mycobacterium abscessus infection Complicated wound infection [facility]* Diagnosis 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 [facility] Diagnosis Secondary malignant neoplasm of brain (HCC)- Primary Secondary malignant neoplasm of brain and spinal cord [facility] Diagnosis 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)- Primary [facility] Diagnosis 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 [facility] Diagnosis 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 [facility]* Diagnosis Breast wound, left, sequela- Primary Infection of deep incisional surgical site after procedure, subsequent encounter Malignant neoplasm of lower-inner quadrant of right breast of female, estrogen receptor positive (CMS-HCC) Mycobacterium abscessus infection S/P breast reconstruction, bilateral [facility]* Diagnosis Breast cancer metastasized to liver, unspecified laterality (HCC)- Primary [facility]* Diagnosis Breast cancer metastasized to liver, unspecified laterality (HCC)- Primary Encounter for medication monitoring Encounter for therapeutic drug monitoring [facility] this [facility]* Diagnosis Post-operative state- Primary Other postprocedural status S/P breast reconstruction Breast replaced by other means History of breast cancer Personal history of malignant neoplasm of breast documented [facility] this encounter [facility]* Diagnosis Reactive depression- Primary Anxiety Anxiety state, unspecified [facility] Diagnosis Breast wound, left, sequela- Primary Infection of deep incisional surgical site after procedure, subsequent encounter [facility] Diagnosis 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 [facility] this [facility]* Diagnosis 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 documented [facility] this encounter [facility]* Diagnosis 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)- Primary [facility]* Diagnosis 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 She denies medication side effects. -[facility]-Cesar Fam DO Work Phone: History of Present illness Narrative* AMEENA Kennedy - 07/06/2024 10:30 AM EDT Images from the original note were not included. [facility] [id number] Office Jhon Gross MD, PhD Marisela Cuevas, [place] CookC Plastic Surgery Progress Note Reason for visit : post-op History of present illness: Ike Flannery is a 53 y.o. female with a history of right breastcancer status post bilateral skin sparing mastectomies (He) and tissue solar power installer reconstruction in 10/28/2023. Her postoperative course was complicated by an infected seroma of her left breast requiring operative washout and tissue solar power installer removal 11/27/23. Intraoperative cultures demonstrated growth of [...] liver lesion. She is awaiting consult at [facility] for IR guided biopsy as well as consult at the mycobacteriumclinic at [facility]. She presents our office today for [...] concerns in the interim. - Marisela Cuevas APRN-PLATE CONDITIONER 07/06/24 9:49 AM Please note that portions of this note were generated using voice recognition M*Modal dictation software. Although every effort was made to ensure the accuracy of this automated construction ironworker, some errors in construction ironworker may have occurred. AMEENA Kennedy 07/06/24 0949 [facility] instructions No data available for this section [facility]* RISE Order Location: None Selected [facility] Work Phone: InstructionsNot on filedocumented [...] PM EDT Your surgery/procedure is scheduled at [facility] on 05/26/2024 at 1015 Arrival Time 0815 [facility] Address: [address] [place] [address]. [place] [id number] Park in [address] Parking lot located on [facility]. Report to the Entrance B. Check in at the information desk the surgery. The waiting room located on the second floor. If you have any questions prior to surgery, please call Pre-Admission Clinic at [phone] between 7:30 am and 4:30 pm Thursday through Thursday. If you have questions the morning of surgery, please call the Pre-op Department at [phone]. Notify your SURGEON if you develop any [...] piercings ,hair extensions that contain metal, nail tajik, make-up, and contact lens. You may brush [...] RIGHTS AND RESPONSIBILITIES As a patient at [facility], you have the right to: Receive medical care and be informed of who is taking care of you Be treated with dignity and respect Have a family member/telephone service representative of choice and your physician notified of your admission Receive information and actively participate in decisions about your care and treatment Refuse care, treatment and services Decide who may provide your support and speak for you Access roman catholic and spiritual services Participate in ethical issues [...] of hospital charges and payment methods Patient/patient telephone service representative responsibilities are to: Provide information about [...] RIGHTS AND RESPONSIBILITIES As a patient at [facility], you have the right to: Receive medical care and be informed of who is taking care of you Be treated with dignity and respect Have a family member/telephone service representative of choice and your physician notified of your admission Receive information and actively participate in decisions about your care and treatment Refuse care, treatment and services Decide who may provide your support and speak for you Access roman catholic and spiritual services Participate in ethical issues [...] of hospital charges and payment methods Patient/patient telephone service representative responsibilities are to: Provide information about [...] PM EDT Your surgery/procedure is scheduled at [facility] on 05/26/2024 at 1015 Arrival Time 0815 [facility] Address: [address] [place] [address] in [address] Parking lot located on [facility]. Report to the Entrance B. Check in at the information desk the surgery. The waiting room located on the second floor. If you have any questions prior to surgery, please call Pre-Admission Clinic at [phone] between 7:30 am and 4:30 pm Thursday through Thursday. If you have questions the morning of surgery, please call the Pre-op Department at [phone]. Notify your SURGEON if you develop any [...] piercings ,hair extensions that contain metal, nail tajik, make-up, and contact lens. You may brush [...] RIGHTS AND RESPONSIBILITIES As a patient at [facility], you have the right to: Receive medical care and be informed of who is taking care of you Be treated with dignity and respect Have a family member/telephone service representative of choice and your physician notified of your admission Receive information and actively participate in decisions about your care and treatment Refuse care, treatment and services Decide who may provide your support and speak for you Access roman catholic and spiritual services Participate in ethical issues [...] of hospital charges and payment methods Patient/patient telephone service representative responsibilities are to: Provide information about [...] RIGHTS AND RESPONSIBILITIES As a patient at [facility], you have the right to: Receive medical care and be informed of who is taking care of you Be treated with dignity and respect Have a family member/telephone service representative of choice and your physician notified of your admission Receive information and actively participate in decisions about your care and treatment Refuse care, treatment and services Decide who may provide your support and speak for you Access roman catholic and spiritual services Participate in ethical issues [...] of hospital charges and payment methods Patient/patient telephone service representative responsibilities are to: Provide information about [...] you have any questions. documented in this encounterKettering Health [facility] SystemProgress note No data available for this section [facility] Progress note Author Norleena [facility] December 29, 2023 11:28am Note Date/Time December 29, 2023 1 1:28am [facility] [place] [address] Cancer Center Note Signed Patient: Ike Flannery MR#: [id number] : 1970 Acct:[id number] Age/Sex: 53 / F Type: REG AMB [...] the right breast. ER negative (weakly positive) NC negative HER2 negative. She received neoadjuvant chemotherapy [...] 3. LVSI negative. ER 12 to 15% NC negative HER2 negative by IHC. 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 ER weakly positive NC negative HER2 negative. April 17, 2023 PET [...] 2023 patient's case was presented at the [facility] tumor board. Recommendations were for PET staging [...] bilateral skin sparing mastectomies with prepectoral tissue solar power installer placement. Left breast shows diffuse fibrocystic change [...] cellulitis with an infected seroma. Left tissue solar power installer removed. She has been on ertapenem and [...] recently saw her plastic surgeon and tissue solar power installer on right has been filled. Intake Intake Visit Reasons: Follow Up Prior to CT-SIM Allergies meperidine Allergy (Unknown, Unverified 11/11/21 18:32) Unknown Reaction, anaphylaxis [facility] Medical History Medical History (Updated 09/30/23 [...] air Breast: Exam now shows left tissue solar power installer surgically absent. Port has been accessed for IV antibiotics. Right tissue solar power installer quite full exam shows skin to be tense with surgical incisions well-healed MSK: Demonstrates good range of motion of the right shoulder with external rotation. Results - Cancer [facility]tr (Rad Onc) LAB RESULTS No Data to Display Dictated By: Quincy Colbert MD DD/ [id number] Signed By: <Electronically signed by Quincy Colbert MD> 12/29/23 1128 [facility] Work Phone: Reason for referral (narrative)* Consultation (Routine) - Pending Review Specialty Diagnoses / Procedures Referred By Contac t Referred To Contact Behavioral Health / Oncology Diagnoses Malignant neoplasm of lower-inner quadrant of right breast of female, estrogen receptor positive (CMS-HCC) Christy He MD [address] [facility] [address] [place] [address] [facility] Med Onc [address] [facility] [address] [place] [address] Referral ID Status Reason Start Date Expiration Date Visits Requested Visits Authorized [id number] Pending Review Specialty Services Required 07/30/2023 07/29/2024 1 1 * Consultation (Routine) - Pending Review Specialty Diagnoses / Procedures Referred By Contac t Referred To Contact Radiation Oncology Diagnoses Malignant neoplasm of lower-inner quadrant of right breast of female, estrogen receptor positive (CMS-HCC) [place] [address] [place] [phone] Dany Diop MD [address] [facility] [place] [address] Referral ID Status Reason Start Date Expiration Date Visits Requested Visits Authorized [id number] Pending Review Specialty Services Required 07/30/2023 07/29/2024 1 1 * Diagnostic Imaging (Routine) - Pending Review Specialty Diagnoses / Procedures Referred By Contac t Referred To Contact Radiology Diagnoses Malignant neoplasm of lower-inner quadrant of right breast of female, estrogen receptor positive (CMS-HCC) Procedures MR bilateral breast with and without contrast with CAD Christy He MD [address] [facility] [address] [place] [address] Referral ID Status Reason Start Date Expiration Date V isits Requested Visits Authorized [id number] Pending Review 07/30/2023 07/29/2024 1 1 * Consultation (Routine) - Pending Review Specialty Diagnoses / Procedures Referred By Contact Referred To Contact Plastic & Reconstructive Surgery Diagnoses Malignant neoplasm of lower-inner quadrant of right breast of female, estrogen receptor positive (CMS-HCC) [place] [address] [place] [address] [address] [place] [address] [facility] [address] [place] [address] [address] [place] [address] Referral ID Status Reason Start Date Expiration Date Visits Requested Visits Authorized [id number] Pending Review Specialty Services Required 07/30/2023 07/29/2024 1 1 [facility] for referral (narrative)* Consultation (Routine) - Pending Review Specialty Diagnoses / Procedures Referred By Contac t Referred To Contact Radiation Oncology Diagnoses Malignant neoplasm of lower-inner quadrant of right breast of female, estrogen receptor positive (CMS-HCC) [place] [address] [place] [phone] Dany Diop MD [address] [facility] [place] [address] Referral ID Status Reason Start Date Expiration Date Visits Requested Visits Authorized [id number] Pending Review Specialty Services Required 04/28/2023 04/27/2024 1 1 * Diagnostic Imaging (Emergency) - Pending Review Specialty Diagnoses / Procedures Referred By Contac t Referred To Contact Radiology Diagnoses Malignant neoplasm of lower-inner quadrant of right breast of female, estrogen receptor positive ([facility]) Procedures MR bilateral breast with and without contrast with CAD Christy He MD [address] [facility] [address] [place] [address] Referral ID Status Reason Start Date Expiration Date V isits Requested Visits Authorized [id number] Pending Review 04/28/2023 04/27/2024 1 1 [facility] SystemReason for referral (narrative)* Consultation (Urgent) - Pending Review Specialty Diagnoses / Procedures Referred By Contac t Referred To Contact Infectious Disease Diagnoses Acid fast bacillus Gino Flower APRN-PLATE CONDITIONER [address] [facility] [address] [address] Mathew Serrato, [address] [address] Referral ID Status Reason Start Date Expiration Date Visits Requested Visits Authorized [id number] Pending Review Specialty Services Required 12/03/2023 12/02/[address] 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 Gino Flower APRN-PLATE CONDITIONER [address] [facility] [address] [address] Herman Lui, [address] [place] [address] Referral ID Status Reason Start Date Expiration Date Visits Requested Visits Authorized [id number] Pending Review Specialty Services Required 12/08/2023 12/07/2024 1 1 [facility] (narrative)No reason for referral information availableMorrow County Hospital Work Phone: Reason for visit Narrative* Auth/Cert (Routine) Specialty Diagnoses / Procedures Referred By Contac t Referred To Contact ADMITTING Diagnoses 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] Procedures STEREOTACTIC RADIOSURGERY 1 COMPLEX CRANIAL LES RADIATION DELIVERY STEREOTACTIC CRANIAL COBALT STEREOTACTIC RADIOSURGERY 1 COMPLEX CRANIAL LESION RADIATION [place] STEREOTACTIC RADIOSURGERY (SRS) [place] CRANIAL LESION(S) 1 SESSION MULTI-SOURCE COBALT Anesthesia [address] [place] [address] Referral ID Status Reason Start Date Expiration Date Visits Re quested Visits Authorized [id number] 1 1 [facility] Summary Purpose Family History No Family [...] Maker Surrogate Decision Maker Name: Jean Carlos Right Surrogate Decision Maker Relationship: Spouse Date Activated Date Inactivated Comments 08/26/2024 2:51 PM 09/01/2024 5:08 PM Question Answer Comments Full Code Order Discussed With: Patient and Surr ogate Decision Maker Surrogate Decision Maker Name: Jean Carlos Right Surrogate Decision Maker Relationship: Spouse Date Activated [...] r guillermor rn. * V.O per Dr. Shanon Tyler MD / Angeles Muellerr RN increase chlorthalidone [...] r guillermor rn. * V.O per Dr. Shanon Tyler MD / Angeles Mathews RN increase chlorthalidone [...] cancer, right October 27, 2024 2 :50pm Chief Complaint Admit Date 1 Month Follow [...] Discharge Follow-Up Amy Singh MD [address], [address] [place] [address] Referral ID Status Reason Start Date Expiration Date V isits Requested Visits Authorized [id number] Pending Review 12/09/2023 12/08/2024 1 1 Referral ID Status Reason Start Date Expiration Date V isits Requested Visits Authorized [id number] Pending Review 12/09/2023 12/08/2024 1 1 Specialty Diagnoses / Procedures Referred By Contac t Referred To Contact Diagnoses Infection of deep incisional surgical site after procedure, initial encounter Infection of deep incisional surgical site after procedure, subsequent encounter Procedures Follow-up with primary care provider Amy Singh MD [address], [facility] [address] [place] [address] Referral ID Status Reason Start Date Expiration Date V isits Requested Visits Authorized [id number] Pending Review 12/09/2023 12/08/2024 1 1 Specialty Diagnoses / Procedures Referred By Contac t Referred To Contact Procedures Adult diet Amy Singh MD [address], [facility] [address] [place] [address] Referral ID Status Reason Start Date Expiration Date V isits Requested Visits Authorized [id number] Pending Review 12/09/2023 12/08/2024 1 1 Additional Source Comments INFORMATION SOURCE (unrecogn ized section and content) DATE CREATED AUTHOR 07/28/2021 [facility] dical Specialist DATE CREATED AUTHOR AUTHOR'S ORGANIZ ATION 09/22/2021 [facility] DATE CREATED AUTHOR AUTHOR'S ORGANIZ ATION 12/01/2021 [facility] DATE CREATED AUTHOR AUTHOR'S ORGANIZ ATION 01/04/2022 [facility] DATE CREATED AUTHOR AUTHOR'S ORGANIZ ATION 09/30/2022 [facility] DATE CREATED AUTHOR AUTHOR'S ORGANIZ ATION 10/01/2022 [facility] DATE CREATED AUTHOR AUTHOR'S ORGANIZ ATION 10/17/2022 [facility] DATE CREATED AUTHOR AUTHOR'S ORGANIZ ATION 03/03/2024 [facility] DATE CREATED AUTHOR AUTHOR'S ORGANIZ ATION 05/23/2024 [facility] DATE CREATED AUTHOR AUTHOR'S ORGANIZ ATION 05/27/2024 [facility] DATE CREATED AUTHOR AUTHOR'S ORGANIZ ATION 05/29/2024 [facility] DATE CREATED AUTHOR AUTHOR'S ORGANIZ ATION 05/30/2024 [facility] DATE CREATED AUTHOR AUTHOR'S ORGANIZ ATION 05/31/2024 [facility] DATE CREATED AUTHOR AUTHOR'S ORGANIZ ATION 06/04/2024 [facility] Specialists [facility] DATE CREATED AUTHOR AUTHOR'S ORGANIZ ATION 10/12/2024 [facility] DATE CREATED AUTHOR AUTHOR'S ORGANIZ ATION 10/15/2024 [facility] d[facility] DATE CREATED AUTHOR AUTHOR'S ORGANIZ ATION 10/27/2024 [facility] DATE CREATED AUTHOR AUTHOR'S ORGANIZ ATION 10/28/2024 [facility] DATE CREATED AUTHOR AUTHOR'S ORGANIZ ATION 10/29/2024 [facility] DATE CREATED AUTHOR AUTHOR'S ORGANIZ ATION 10/30/2024 [facility] DATE CREATED AUTHOR AUTHOR'S ORGANIZ ATION 11/02/2024 [facility] REASON FOR VISIT (unrecogniz ed section and content) Reason Comments Radiology CT Specialty Diagnoses / Procedures Referred By Contac t Referred To Contact ADMITTING Diagnoses 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] Procedures STEREOTACTIC RADIOSURGERY 1 COMPLEX CRANIAL LES RADIATION DELIVERY STEREOTACTIC CRANIAL COBALT STEREOTACTIC RADIOSURGERY 1 COMPLEX CRANIAL LESION RADIATION TX STEREOTACTIC RADIOSURGERY (SRS) TX CRANIAL LESION(S) 1 SESSION MULTI-SOURCE COBALT Anesthesia [address] [address] Referral ID Status Reason Start Date Expiration Date Visits Re quested Visits Authorized [id number] 1 1 Reason Comments abnormal test results Discuss the result s of her abnormal mammogram results done @ [facility] Reason Comments Spots and/or Floaters Flashes, [...] estrogen receptor positive (CMS-HCC) [place] [address] [place] [address] [facility] [address] Referral ID Status Reason Start Date Expiration Date Visits Requested Visits Authorized [id number] Pending Review Specialty Services Required 07/30/2023 07/29/2024 1 1 Reason Comments Med Refill Reason Comments Consult Newly dx Specialty Diagnoses / Procedures Referred By Jose olmedo Referred To Contact Breast Surgery Diagnoses Mass of lower inner quadrant of right breast Richie Hanna, RESTAURANT ASSISTANT MANAGER-PLATE CONDITIONER [address] [place] [address] [place] [address] [place] [phone] Referral ID Status Reason Start Date Expiration Date V isits Requested Visits Authorized [id number] Pending Review 03/23/2023 03/22/2024 1 1 Reason [...] To Contact Diagnoses MIRNA (acute kidney injury) ([facility]) Nimo Meza MD [address] [place] [address] Referral ID Status Reason Start Date Expiration Date Visits Re quested Visits Authorized [id number] 1 1 Reason Onset Date Comments Transition [...] Reason Comments New Patient Evaluation 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 Reason Comments - July 29 [...] LESION(S) 1 SESSION MULTI-SOURCE COBALT Anesthesia [address] [address] Referral ID Status Reason Start Date Expiration Date Visits Re quested Visits Authorized [id number] 1 1 Reason Comments Radiology MRI Reason Comments Established Patient Reason Comments Post Op Follow Up Reason Onset Date Comments Med Refill 09/19/2024 Patient Care team informatio n (unrecognized section and content) Team Status: Active Member Role Status Dates Randy Calle DO Primary Care Provider Active Team Status: Active Member Role Status Dates Randy Calle DO Primary Care Provider Active Start: August 24, 2024 Shereen Smallwood PA-C Attending Provider Active Start: August 24, 2024 Team Status: Inactive Member Role Status Dates Randy Calle DO Primary Care Provider Active Start: October 27, 2024 End: October 27, 2024 Quincy Colbert MD Attending Provider Active Start: October 27, 2024 End: October 27, 2024 Aarti Hope MD Referring Provider Active St art: October 27, 2024 Team Status: Inactive Member Role Status [...] DO Primary Care Provider Active Start: May 01, [...] 2023 End: March 26, 2023 GUY Khan TONGSMAN-C Attending Provider Active Start: March 26, 2023 End: March 26, 2023 Automotive Metalsmith Relationship Specialty Start Date End Date Randy Calle MD [address] [place] [address] PCP - General Family Medicine 04/02/23 Automotive Metalsmith Relationship Specialty Start Date End Date Randy Calle MD [address] [place] [address] PCP - General Family Medicine 04/02/23 Automotive Metalsmith Relationship Specialty Start Date End Date Randy Calle MD [address] [place] [address] PCP - General Family Medicine 04/02/23 Automotive Metalsmith Relationship Specialty Start Date End Date Randy Calle MD [address] [place] [address] PCP - General Family Medicine 04/02/23 Automotive Metalsmith Relationship Specialty Start Date End Date Randy Calle MD [address] [place] [address] PCP - General Family Medicine 04/02/23 Automotive Metalsmith Relationship Specialty Start Date End Date Randy Calle MD [address], [place] [address] PCP - General Family Medicine 04/02/23 Automotive Metalsmith Relationship Specialty Start Date End Date Randy Calle MD [address], [place] [address] PCP - General Family Medicine 04/02/23 Automotive Metalsmith Relationship Specialty Start Date End Date Randy Calle MD [address], [place] [address] PCP - [facility] Family Medicine 04/02/23 Automotive Metalsmith Relationship Specialty Start Date End Date Richie Hanna RESTAURANT ASSISTANT MANAGER-PLATE CONDITIONER [address] [place] [address] PCP - General 11/28/16 Automotive Metalsmith Relationship Specialty Start Date End Date Richie Hanna RESTAURANT ASSISTANT MANAGER-PLATE CONDITIONER [address] [place] [address] PCP - General 11/28/16 Automotive Metalsmith Relationship Specialty Start Date End Date Richie Hanna RESTAURANT ASSISTANT MANAGER-PLATE CONDITIONER [address] [place] [address] PCP - General 11/28/16 Automotive Metalsmith Relationship Specialty Start Date End Date Randy Calle MD [address], [place] [address] PCP - [facility] Family Medicine 04/02/23 Team Status: Active Member [...] Provider Active St art: February 10, 2024 Automotive Metalsmith Relationship Specialty Start Date End Date Richie Hanna RESTAURANT ASSISTANT MANAGER-PLATE CONDITIONER [address] [place] [address] PCP - General 11/28/16 Automotive Metalsmith Relationship Specialty Start Date End Date Richie Hanna RESTAURANT ASSISTANT MANAGER-PLATE CONDITIONER [address] [place] [address] PCP - General 11/28/16 Automotive Metalsmith Relationship Specialty Start Date End Date Richie Hanna RESTAURANT ASSISTANT MANAGER-PLATE CONDITIONER [address] [place] [address] PCP - General 11/28/16 Automotive Metalsmith Relationship Specialty Start Date End Date Richie Hanna RESTAURANT ASSISTANT MANAGER-PLATE CONDITIONER [address] [place] [address] PCP - General 11/28/16 Automotive Metalsmith Relationship Specialty Start Date End Date Richie Hanna RESTAURANT ASSISTANT MANAGER-PLATE CONDITIONER [address] [place] [address] PCP - General 11/28/16 Automotive Metalsmith Relationship Specialty Start Date End Date Richie Hanna RESTAURANT ASSISTANT MANAGER-PLATE CONDITIONER [address] [place] [address] PCP - General 11/28/16 Automotive Metalsmith Relationship Specialty Start Date End Date Richie Hanna RESTAURANT ASSISTANT MANAGER-PLATE CONDITIONER [address] [place] [address] PCP - General 11/28/16 Automotive Metalsmith Relationship Specialty Start Date End Date Richie Hanna RESTAURANT ASSISTANT MANAGER-PLATE CONDITIONER [address] [place] [address] PCP - General 11/28/16 Automotive Metalsmith Relationship Specialty Start Date End Date Richie Hanna RESTAURANT ASSISTANT MANAGER-PLATE CONDITIONER [address] [place] [address] PCP - General 11/28/16 Automotive Metalsmith Relationship Specialty Start Date End Date Richie Hanna RESTAURANT ASSISTANT MANAGER-PLATE CONDITIONER [address] [place] [address] PCP - General 11/28/16 Automotive Metalsmith Relationship Specialty Start Date End Date Richie Hanna RESTAURANT ASSISTANT MANAGER-PLATE CONDITIONER [address] [place] [address] PCP - General 11/28/16 Automotive Metalsmith Relationship Specialty Start Date End Date Richie Hanna RESTAURANT ASSISTANT MANAGER-PLATE CONDITIONER [address] [place] [address] PCP - General 11/28/16 Automotive Metalsmith Relationship Specialty Start Date End Date Richie Hanna RESTAURANT ASSISTANT MANAGER-PLATE CONDITIONER [address] [place] [address] PCP - General 11/28/16 Automotive Metalsmith Relationship Specialty Start Date End Date Richie Hanna RESTAURANT ASSISTANT MANAGER-PLATE CONDITIONER [address] [place] [address] PCP - General 11/28/16 Automotive Metalsmith Relationship Specialty Start Date End Date Richie Hanna RESTAURANT ASSISTANT MANAGER-PLATE CONDITIONER [address] [place] [address] PCP - General 11/28/16 Automotive Metalsmith Relationship Specialty Start Date End Date Richie Hanna RESTAURANT ASSISTANT MANAGER-PLATE CONDITIONER [address] [place] [address] PCP - General 11/28/16 Automotive Metalsmith Relationship Specialty Start Date End Date Richie Hanna RESTAURANT ASSISTANT MANAGER-PLATE CONDITIONER [address] [place] [address] PCP - General 11/28/16 Automotive Metalsmith Relationship Specialty Start Date End Date Richie Hanna RESTAURANT ASSISTANT MANAGER-PLATE CONDITIONER [address] [place] [address] PCP - General 11/28/16 Automotive Metalsmith Relationship Specialty Start Date End Date Richie Hanna [facility] [address] [place] [address] PCP - General 11/28/16 Automotive Metalsmith Relationship Specialty Start Date End Date Richie Hanna [facility] [address] [place] [address] PCP - General 11/28/16 Automotive Metalsmith Relationship Specialty Start Date End Date Richie Hanna [facility] [address] [place] [address] PCP - General 11/28/16 Automotive Metalsmith Relationship Specialty Start Date End Date Richie Hanna [facility] [address] [place] [address] PCP - General 11/28/16 Automotive Metalsmith Relationship Specialty Start Date End Date Richie Hanna, [facility] [address] [place] [address] PCP - General 11/28/16 Automotive Metalsmith Relationship Specialty Start Date End Date Richie Hanna, [facility] [address] [place] [address] PCP - General 11/28/16 Automotive Metalsmith Relationship Specialty Start Date End Date Randy Calle MD [address] [place] [address] PCP - General Family Medicine 04/02/23 Automotive Metalsmith Relationship Specialty Start Date End Date Richie Hanna, RESTAURANT ASSISTANT MANAGER-PLATE CONDITIONER [address] [place] [address] PCP - General 11/28/16 Automotive Metalsmith Relationship Specialty Start Date End Date Randy Calle MD PCP - [facility] Medicine 04/02/23 Automotive Metalsmith Relationship Specialty Start Date End Date Randy Calle MD PCP - [facility] 04/02/23 Automotive Metalsmith Relationship Specialty Start Date End Date Randy Calle MD PCP [facility] 04/02/23 Team Status: Inactive Member Role Status Dates Randy Calle DO Primary Care Provider Active Start: May 19, 2024 End: May 19, 2024 Shereen Smallwood PA-C Attending Prov ider, Referring Provider Active Start: May 19, 2024 End: May 19, 2024 Automotive Metalsmith Relationship Specialty Start Date End Date Richie Hanna RESTAURANT ASSISTANT MANAGER-PLATE CONDITIONER [address] [place] [address] PCP - General 11/28/16 Automotive Metalsmith Relationship Specialty Start Date End Date Richie Hanna, RESTAURANT ASSISTANT MANAGER-PLATE CONDITIONER [address] [place] [address] PCP - General 11/28/16 Automotive Metalsmith Relationship Specialty Start Date End Date Richie Hanna, RESTAURANT ASSISTANT MANAGER-PLATE CONDITIONER [address] [place] [address] PCP - General 11/28/16 Automotive Metalsmith Relationship Specialty Start Date End Date Kaye Manuel CNP [address] [place] [address] PCP - General Family Medicine 06/14/24 Gino Flower APRN [address] [facility] [address] [place] [address] 12/04/23 Aarti Hope MD [address] [place] [address] Referring Hematology/Oncology 06/14/24 Shereen Smallwood PA-C [address] [facility] [address] [place] [address] [facility] Referring Orthopedics 06/15/24 Automotive Metalsmith Relationship Specialty Start Date End Date Richie Hanna APRN-PLATE CONDITIONER [address] [place] [address] PCP - General 11/28/16 Automotive Metalsmith Relationship Specialty Start Date End Date Richie Hanna APRN-PLATE CONDITIONER [address] [place] [address] PCP - General 11/28/16 Automotive Metalsmith Relationship Specialty Start Date End Date Richie Hanna APRN-PLATE CONDITIONER [address] [place] [address] PCP - General 11/28/16 Automotive Metalsmith Relationship Specialty Start Date End Date Richie Hanna APRN-PLATE CONDITIONER [address] [place] [address] PCP - General 11/28/16 Automotive Metalsmith Relationship Specialty Start Date End Date Richie Hanna APRN-PLATE CONDITIONER [address] [place] [address] PCP - General 11/28/16 Automotive Metalsmith Relationship Specialty Start Date End Date Kaye Manuel, PLATE CONDITIONER [address] [place] [address] PCP - General Family Medicine 06/14/24 Gino Flower APRN [address] [facility] [address] [address] 12/04/23 Aarti Hope MD [address] [place] [address] Referring Hematology/Oncology 06/14/24 Shereen Smallwood PA-C [address] [place] [address] [address] [place] [address] [facility] Referring Orthopedics 06/15/24 Automotive Metalsmith Relationship Specialty Start Date End Date Kaye Manuel, PLATE CONDITIONER [address] [place] [address] PCP - General Family Medicine 06/14/24 Gino Flower APRN [address] [facility] [address] [address] 12/04/23 Aarti Hope MD [address] [place] [address] Referring Hematology/Oncology 06/14/24 Shereen Smallwood PA-C [address] [facility] [address] [place] [address] [facility] Referring Orthopedics 06/15/24 Automotive Metalsmith Relationship Specialty Start Date End Date Kaye Manuel, ESPERANZA [address] [place] [address] PCP - General Family Medicine 06/14/24 Gino Flower APRN [address] [facility] [address] [address] 12/04/23 Aarti Hope MD [address] [place] [address] Referring Hematology/Oncology 06/14/24 Shereen Smallwood PA-C [address] [facility] [address] [place] [address] [facility] Referring Orthopedics 06/15/24 Automotive Metalsmith Relationship Specialty Start Date End Date Richie Hanna APRN-PLATE CONDITIONER [address] [place] [address] PCP - General 11/28/16 Automotive Metalsmith Relationship Specialty Start Date End Date Richie Hanna APRN-PLATE CONDITIONER [address] [place] [address] PCP - General 11/28/16 Automotive Metalsmith Relationship Specialty Start Date End Date Kaye Manuel CNP [address] [place] [address] PCP - General Family Medicine 06/14/24 Gino Flower APRN [address] [facility] [address] [address] 12/04/23 Aarti Hope MD [address] [place] [address] Referring Hematology/Oncology 06/14/24 Shereen Smallwood PA-C [address] [address] [facility] Referring Orthopedics 06/15/24 [place] [address] [place] [id number] Specialty Shift Boss Hematology/Oncology 07/31/24 Automotive Metalsmith Relationship Specialty Start Date End Date Kaye Manuel, PLATE CONDITIONER [address] [facility] [place] [place] [address] PCP - General Family Medicine 06/14/24 Gino Flower APRN [address] [facility] [address] [address] 12/04/23 Aarti Hope MD [address] [place] [address] Referring Hematology/Oncology 06/14/24 Shereen Smallwood PA-C [address] [facility] [address] [place] [address] [facility] Referring Orthopedics 06/15/24 [place] [address] [place] [address] Specialty Shift Boss Hematology/Oncology 07/31/24 Automotive Metalsmith Relationship Specialty Start Date End Date Kaye Manuel CNP [address] [place] [address] PCP - General Family Medicine 06/14/24 Gino Flower APRN [address] [facility] [address] [address] 12/04/23 Aarti Hope MD [address] [place] [address] Referring Hematology/Oncology 06/14/24 Shereen Smallwood PA-C [address] [place] [address] [address] [place] [address] [facility] Referring Orthopedics 06/15/24 [place] [address] [place] [address] Specialty Shift Boss Hematology/Oncology 07/31/24 Automotive Metalsmith Relationship Specialty Start Date End Date Kaye Manuel CNP [address] [place] [address] PCP - General Family Medicine 06/14/24 Gino Flower APRN [address] [facility] [address] [place] [address] 12/04/23 Aarti Hope MD [address] [facility] [place] [address] Referring Hematology/Oncology 06/14/24 Shereen Smallwood PA-C [address] [facility] [address] [place] [address] [place] Referring Orthopedics 06/15/24 [place] [address] [place] [address] Specialty Shift Boss Hematology/Oncology 07/31/24 Automotive Metalsmith Relationship Specialty Start Date End Date Kaye Manuel, PLATE CONDITIONER [address] [place] [address] PCP - General Family Medicine 06/14/24 Gino Flower APRN [address] [facility] [address] [place] [address] 12/04/23 Aarti Hope MD [address] [place] [address] Referring Hematology/Oncology 06/14/24 Shereen Smallwood PA-C [address] [facility] [address] [place] [address] [facility] Referring Orthopedics 06/15/24 [place] [address] [place] [address] Specialty Shift Boss Hematology/Oncology 07/31/24 Automotive Metalsmith Relationship Specialty Start Date End Date Kaye Manuel PLATE CONDITIONER [address] [place] [address] PCP - General Family Medicine 06/14/24 Gino Flower APRN [address] [facility] [address] [place] [address] 12/04/23 Aarti Hope MD [address] [facility] [place] [address] Referring Hematology/Oncology 06/14/24 Shereen Smallwood PA-C [address] [facility] [address] [place] [address] [facility] Referring Orthopedics 06/15/24 [place] [address] [place] [address] Specialty Shift Boss Hematology/Oncology 07/31/24 Automotive Metalsmith Relationship Specialty Start Date End Date Kaye Manuel CNP [address] [place] [address] PCP - General Family Medicine 06/14/24 Gino Flower APRN [address] [facility] [address] [place] [address] 12/04/23 Aarti Hope MD [address] [place] [address] Referring Hematology/Oncology 06/14/24 Shereen Smallwood PA-C [address] [facility] [address] [place] [address] [facility] Referring Orthopedics 06/15/24 [place] [address] [place] [address] Specialty Shift Boss Hematology/Oncology 07/31/24 Automotive Metalsmith Relationship Specialty Start Date End Date Richie Hanna APRN-PLATE CONDITIONER [address] [place] [address] PCP - General 11/28/16 Automotive Metalsmith Relationship Specialty Start Date End Date Kaye Manuel, PLATE CONDITIONER [address] [place] [address] PCP - General Family Medicine 06/14/24 Gino Flower APRN [address] [facility] [address] [address] 12/04/23 Aarti Hope MD [address] [place] [address] Referring Hematology/Oncology 06/14/24 Shereen Smallwood PA-C [address] [place] [address] [address] [place] [address] [facility] Referring Orthopedics 06/15/24 [place] [address] [place] [phone] Specialty Shift Boss Hematology/Oncology 07/31/24 Automotive Metalsmith Relationship Specialty Start Date End Date Kaye Manuel PLATE CONDITIONER [address] [place] [address] PCP - General Family Medicine 06/14/24 Gino Flower APRN [address] [facility] [address] [address] 12/04/23 Aarti Hope MD [address] [place] [address] Referring Hematology/Oncology 06/14/24 Shereen Smallwood PA-C [address] [facility] [address] [place] [address] [facility] Referring Orthopedics 06/15/24 [place] [address] [place] [address] Specialty Shift Boss Hematology/Oncology 07/31/24 Automotive Metalsmith Relationship Specialty Start Date End Date Kaye Manuel CNP [address] [place] [address] PCP - General Family Medicine 06/14/24 Gino Flower APRN [address] [facility] [address] [place] [address] 12/04/23 Aarti Hope MD [address] [place] [address] Referring Hematology/Oncology 06/14/24 Shereen Smallwood PA-C [address] [facility] [address] [place] [address] [facility] Referring Orthopedics 06/15/24 [place] [address] [place] [address] Specialty Shift Boss Hematology/Oncology 07/31/24 Automotive Metalsmith Relationship Specialty Start Date End Date Richie Hanna APRN-PLATE CONDITIONER [address] [place] [address] PCP - General 11/28/16 Automotive Metalsmith Relationship Specialty Start Date End Date Kaye Manuel CNP [address] [place] [address] PCP - General Family Medicine 06/14/24 Gino Flower APRN [address] [facility] [address] [place] [address] 12/04/23 Aarti Hope MD [address] [place] [address] Referring Hematology/Oncology 06/14/24 Shereen Smallwood PA-C [address] [facility] [address] [facility] [place] [address] [facility] Referring Orthopedics 06/15/24 [place] [address] [place] [address] Specialty Shift Boss Hematology/Oncology 07/31/24 Automotive Metalsmith Relationship Specialty Start Date End Date Richie Hanna APRN-PLATE CONDITIONER [address] [place] [address] PCP - General 11/28/16 Automotive Metalsmith Relationship Specialty Start Date End Date Richie Hanna APRN-PLATE CONDITIONER [address] [place] [address] PCP - General 11/28/16 Automotive Metalsmith Relationship Specialty Start Date End Date Richie Hanna NP [address] [place] [address] PCP - General Family Medicine 09/27/24 Gino Flower APRN [address] [facility] [address] [address] 12/04/23 Aarti Hope MD [address] [place] [address] Referring Hematology/Oncology 06/14/24 Shereen Smallwood PA-C [address] [facility] [address] [place] [address] [facility] Referring Orthopedics 06/15/24 [place] [address] [place] [address] Specialty Shift Boss Hematology/Oncology 07/31/24 Automotive Metalsmith Relationship Specialty Start Date End Date Richie Hanna NP [address] [place] [address] PCP - General Family Medicine 09/27/24 Gino Flower APRN [address] [facility] [address] [place] [address] 12/04/23 Aarti Hope MD [address] [place] [address] Referring Hematology/Oncology 06/14/24 Shereen Smallwood PA-C [address] [facility] [address] [place] [address] [facility] Referring Orthopedics 06/15/24 [place] [address] [place] [address] Specialty Shift Boss Hematology/Oncology 07/31/24 Automotive Metalsmith Relationship Specialty Start Date End Date Richie Hanna APRN-PLATE CONDITIONER [address] [place] [address] PCP - General 11/28/16 Automotive Metalsmith Relationship Specialty Start Date End Date Richie Hanna NP [address] [place] [address] PCP - General Family Medicine 09/27/24 Gino Flower APRN [address] [facility] [address] [place], [place] [address] 12/04/23 Aarti Hope MD [address] [place] [address] Referring Hematology/Oncology 06/14/24 Shereen Smallwood PA-C [address] [facility] [address] [place] [address] [facility] Referring Orthopedics 06/15/24 [place] [address] [place] [address] Specialty Shift Boss Hematology/Oncology 07/31/24 Automotive Metalsmith Relationship Specialty Start Date End Date Richie Hanna APRN-PLATE CONDITIONER [address] [place] [address] PCP - General 11/28/16 Goals (unrecognized section [...] RN)2139 (Given - Provider: Aliza Benito RN) 0901 (Given - Provider: Claudia Masterson LPN)2054 (Given [...] Thu12/03/23 at 1200, Indication: Nontuberculous mycobacterial infection (makeup artist drug) 0743 (Given - Provider: Corrina Richardson RN)2138 (Given - Provider: Aliza Benito RN) 927 (Given - Provider: Claudia Masterson LPN)2054 (Given - Provider: Aliza Benito RN) 0918 (Given - Provider: Kahlil Gregorio RN) cyanocobalamin [...] is REQUIRED to use this drug at [facility], [facility] and [facility] per [facility]-approved policy # MM 1.15: Yes 1004 [...] Benito RN) 0917 (Given - Provider: Kahlil Gregorio, [place]) methylPREDNISolone [...] chew. 0742 (Given - Provider: Corrina Richardson RN)2139 (Given - Provider: Aliza Benito RN) 0928 (Given - Provider: Claudia Masterson LPN)2054 (Given - Provider: Aliza Benito RN) 0917 (Given - Provider: Kahlil Gregorio RN) potassium chloride (KLOR-CON M 20) CR tablet 20 mEq 20 mEq, oral, Daily, First dose on 12/06/23 at 0900, Hold for potassium more than 4.5 Do not crush or chew. 0738 (Given - Provider: Corrina Richardson RN) 0927 (Given - Provider: Claudia Masterson LPN) 0917 (Given - Provider: Kahlil Gregorio RN) sodium chloride 0.9 % flush 3 mL 3 mL, intravenous, Every 12 hours scheduled, First dose on Thu12/02/23 at 2320 0744 (Given - Provider: Corrina Richardson RN)2308 (Given - Provider: Aliza Benito RN) 0928 (Given - Provider: Claudia Masterson LPN)2056 (Given [...] is REQUIRED to use this drug at [facility], [facility] and [facility] per [facility]-approved policy # MM 1.15: Yes, 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 0736 (New Bag - Provider: Corrina Richardson RN - Comment: was waiting on pharmacy)0806 (Stop Bag - Provider: Corrina Richardson RN) Continuous Medication Order 12/07/2023 12/08/2023 12/09/2023 lactated ringers infusion (CANCELED) 100 mL/hr, intravenous, Continuous, Starting on [place] 12/03/23 at 1415 0145 (New Bag - Provider: Aliza Benito RN)0450 (Paused - Provider: Corrina Richardson RN)0452 (Restarted - Provider: Corrina Richardson RN)0736 (Paused - Provider: Corrina Richardson RN)0807 (Restarted - Provider: Corrina Richardson RN)0910 (Paused - Provider: Crorina Richardson RN)0925 (Restarted - Provider: Corrina Richardson [...] \[email or web address]_Reference\Orders\ Respiratory Care Guidelines\CPG Bronchodilator 2020.pdf anxlwri-qsehpkmbsnhnu-fo ffeine (EXCEDRIN MIGRAINE) 250-250-65 mg per tablet [...] calcium 4 to 4.3 mg/dL, Starting on Thu12/03/23 at 1405, IV Administration of calcium via [...] Corrina Richardson RN)2304 (Given - Provider: Aliza Benito [...] level 0.44 mmol/L or less, Starting on 12/06/23 at 0946, Recheck magnesium [...] level 2.3 mg/dL or less, Starting on Thu12/03/23 at 1406, Administer over 6 hours via dedicated line (peripheral line). If administered, recheck phosphorus level 4 hours after infusion complete. traZODone (DESYREL) tablet 50 mg 50 mg, oral, Nightly PRN, sleep, Starting on Thu12/03/23 at 0041, Look-alike/sound-alike medication [...] is REQUIRED to use this drug at [facility], [facility] and [facility] per [facility]-approved policy # MM 1.15: Yes, Specify: 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 Followed by tigecycline (TYGACIL) 50 mg in sodium chloride 0.9 % 50 mL IVPB (CANCELED)Jump to med 50 mg, intravenous, at 110 mL/hr, Administer over 30 Minutes, Every 12 hours, First dose on [place] 12/06/23 at 0630, Pathogen: MDR infection with confirmed susceptibility, Approved Indication: Other, Authorizing Service: ID consult has been placed, I acknowledge that an appropriate consult is REQUIRED to use this drug at [facility], [facility] and [facility] per [facility]-approved policy # MM 1.15: Yes, Specify: [...] or prosecute any alcohol or drug abuse patient.[facility] the event this information is protected by the Federal Confidentiality of Alcohol and Drug Abuse Patient Records regulations: The Federal rules restrict any use of the information to criminally investigate or prosecute any alcohol or drug abuse patient.[facility] HospitalIn the event this information is protected by the Federal Confidentiality of Alcohol and Drug Abuse Patient Records regulations: The Federal rules restrict any use of the information to criminally investigate or prosecute any alcohol or drug abuse patient.[facility] HospitalIn the event this information is protected by the Federal Confidentiality of Alcohol and Drug Abuse Patient Records regulations: The Federal rules restrict any use of the information to criminally investigate or prosecute any alcohol or drug abuse patient.[facility] HospitalIn the event this information is protected by the Federal Confidentiality of Alcohol and Drug Abuse Patient Records regulations: The Federal rules restrict any use of the information to criminally investigate or prosecute any alcohol or drug abuse patient.[facility] HospitalIn the event this information is protected by the Federal Confidentiality of Alcohol and Drug Abuse Patient Records regulations: The Federal rules restrict any use of the information to criminally investigate or prosecute any alcohol or drug abuse patient.[facility] HospitalIn the event this information is protected by the Federal Confidentiality of Alcohol and Drug Abuse Patient Records regulations: The Federal rules restrict any use of the information to criminally investigate or prosecute any alcohol or drug abuse patient.[facility] HospitalIn the event this information is protected by the Federal Confidentiality of Alcohol and Drug Abuse Patient Records regulations: The Federal rules restrict any use of the information to criminally investigate or prosecute any alcohol or drug abuse patient.[facility] HospitalIn the event this information is protected by the Federal Confidentiality of Alcohol and Drug Abuse Patient Records regulations: The Federal rules restrict any use of the information to criminally investigate or prosecute any alcohol or drug abuse patient.[facility] HospitalIn the event this information is protected by the Federal Confidentiality of Alcohol and Drug Abuse Patient Records regulations: The Federal rules restrict any use of the information to criminally investigate or prosecute any alcohol or drug abuse patient.[facility] HospitalIn the event this information is protected by the Federal Confidentiality of Alcohol and Drug Abuse Patient Records regulations: The Federal rules restrict any use of the information to criminally investigate or prosecute any alcohol or drug abuse patient.[facility] HospitalIn the event this information is protected by the Federal Confidentiality of Alcohol and Drug Abuse Patient Records regulations: The Federal rules restrict any use of the information to criminally investigate or prosecute any alcohol or drug abuse patient.[facility] HospitalIn the event this information is protected by the Federal Confidentiality of Alcohol and Drug Abuse Patient Records regulations: The Federal rules restrict any use of the information to criminally investigate or prosecute any alcohol or drug abuse patient.[facility] HospitalIn the event this information is protected by the Federal Confidentiality of Alcohol and Drug Abuse Patient Records regulations: The Federal rules restrict any use of the information to criminally investigate or prosecute any alcohol or drug abuse patient.[facility] HospitalIn the event this information is protected by the Federal Confidentiality of Alcohol and Drug Abuse Patient Records regulations: The Federal rules restrict any use of the information to criminally investigate or prosecute any alcohol or drug abuse patient.[facility] HospitalIn the event this information is protected by the Federal Confidentiality of Alcohol and Drug Abuse Patient Records regulations: The Federal rules restrict any use of the information to criminally investigate or prosecute any alcohol or drug abuse patient.[facility] HospitalIn the event this information is protected by the Federal Confidentiality of Alcohol and Drug Abuse Patient Records regulations: The Federal rules restrict any use of the information to criminally investigate or prosecute any alcohol or drug abuse patient.[facility] HospitalIn the event this information is protected by the Federal Confidentiality of Alcohol and Drug Abuse Patient Records regulations: The Federal rules restrict any use of the information to criminally investigate or prosecute any alcohol or drug abuse patient.[facility] HospitalIn the event this information is protected by the Federal Confidentiality of Alcohol and Drug Abuse Patient Records regulations: The Federal rules restrict any use of the information to criminally investigate or prosecute any alcohol or drug abuse patient.[facility] HospitalIn the event this information is protected by the Federal Confidentiality of Alcohol and Drug Abuse Patient Records regulations: The Federal rules restrict any use of the information to criminally investigate or prosecute any alcohol or drug abuse patient.[facility] HospitalIn the event this information is protected by the Federal Confidentiality of Alcohol and Drug Abuse Patient Records regulations: The Federal rules restrict any use of the information to criminally investigate or prosecute any alcohol or drug abuse patient.[facility] HospitalIn the event this information is protected by the Federal Confidentiality of Alcohol and Drug Abuse Patient Records regulations: The Federal rules restrict any use of the information to criminally investigate or prosecute any alcohol or drug abuse patient.[facility] FOR RECORDS PERTAINING TO PATIENTS WHO [...] BE BASED ON THE PRIMARY CLINICAL RECORDS. [facility]. provides no warranty or guarantee of the accuracy or completeness of information in this document.
[2024-11-07 13:29] LABS: Hemoglobin 7.3 g/dL (12.0-16.0); Immature Granulocytes Abs Auto 0.02 10^3/uL (0.00-0.03); Immature Granulocytes Pct Auto 0.6 % (0.0-0.5); Lymphocytes Absolute Auto 0.7 10^3/uL (1.2-3.8); Mean Corpuscular HGB Conc 36.1 g/dL (29.9-35.2); Mean Corpuscular Hemoglobin 40.3 pg (26.7-34.0); Platelet Count 175 10^3/uL (150-450); Red Blood Count 1.81 10^6/uL (4.20-5.40); White Blood Count 3.2 10^3/uL (4.0-11.0)
[2024-11-07 13:40] LABS: Mean Corpuscular Volume 111.6 fL (81.0-99.0)
[2024-11-07 13:41] LABS: Hematocrit 20.2 % (36.0-48.0)
[2024-11-07 13:45] LABS: Alanine Aminotransferase 24 U/L (14-59); Albumin Globulin Ratio 1.1; Albumin Level 3.1 g/dL (3.4-5.0); Alkaline Phosphatase 77 U/L (46-116); Aspartate Amino Transferase 21 U/L (15-37); Estimated GFR (African America >60 (>=60 mL/min/1.73m^2); Estimated GFR (Non-African Ame 54 (>=60 mL/min/1.73m^2); Globulin 2.7 g/dL; Total Protein 5.8 g/dL (6.4-8.2)
--- NOTE | 2024-11-07 14:10 | PC.NURSE ---
Lab phoned with critical HCT. Dr. Hope notified per task in [employer] EMR.
[2024-11-21 12:15] LABS: Hematocrit 25.5 % (36.0-48.0); Hemoglobin 9.0 g/dL (12.0-16.0); Mean Corpuscular HGB Conc 35.3 g/dL (29.9-35.2); Mean Corpuscular Hemoglobin 39.0 pg (26.7-34.0); Mean Corpuscular Volume 110.4 fL (81.0-99.0); Platelet Count 188 10^3/uL (150-450); Red Blood Count 2.31 10^6/uL (4.20-5.40); White Blood Count 15.6 10^3/uL (4.0-11.0)
[2024-11-21 12:24] LABS: Alanine Aminotransferase 34 U/L (14-59); Albumin Globulin Ratio 1.0; Albumin Level 3.1 g/dL (3.4-5.0); Alkaline Phosphatase 136 U/L (46-116); Aspartate Amino Transferase 20 U/L (15-37); Estimated GFR (African America >60 (>=60 mL/min/1.73m^2); Estimated GFR (Non-African Ame 52 (>=60 mL/min/1.73m^2); Globulin 3.0 g/dL; Total Protein 6.1 g/dL (6.4-8.2)
[2024-11-21 12:43] LABS: Basophils Abs Manual 0.15 10^3/uL (0.00-0.10); Basophils Percent Manual 1.0 % (0.2-2.0); Eosinophils Absolute Manual 0.31 10^3/uL (0.00-0.70); Eosinophils Percent Manual 2.0 % (0.9-7.0); Lymphocytes Absolute Manual 1.40 10^3/uL (1.20-3.80); Lymphocytes Percent Manual 9.0 % (20.5-60.0); Monocytes Absolute Manual 0.46 10^3/uL (0.30-0.80); Monocytes Percent Manual 3.0 % (1.7-12.0); Segmented Neut Absolute Manual 13.26 10^3/uL (1.4-6.5); Segmented Neutrophils % Manual 85.0 (43.0-75.0)
[2024-11-21 12:46] LABS: Anisocytosis 1+; Macrocytosis 1+
[2024-11-21 12:48] LABS: Dohle Bodies 1+
[2024-11-28 13:12] LABS: Hemoglobin 8.3 g/dL (12.0-16.0); Mean Corpuscular HGB Conc 35.3 g/dL (29.9-35.2); Mean Corpuscular Hemoglobin 38.6 pg (26.7-34.0); Mean Corpuscular Volume 109.3 fL (81.0-99.0); Platelet Count 205 10^3/uL (150-450); Red Blood Count 2.15 10^6/uL (4.20-5.40); White Blood Count 12.1 10^3/uL (4.0-11.0)
[2024-11-28 13:17] LABS: Hematocrit 23.5 % (36.0-48.0)
[2024-11-28 13:25] LABS: Alanine Aminotransferase 28 U/L (14-59); Albumin Globulin Ratio 1.0; Albumin Level 3.1 g/dL (3.4-5.0); Alkaline Phosphatase 108 U/L (46-116); Aspartate Amino Transferase 21 U/L (15-37); Estimated GFR (African America >60 (>=60 mL/min/1.73m^2); Estimated GFR (Non-African Ame 54 (>=60 mL/min/1.73m^2); Globulin 3.2 g/dL; Total Protein 6.3 g/dL (6.4-8.2)
[2024-11-28 13:40] LABS: Anisocytosis 1+; Basophils Abs Manual 0.00 10^3/uL (0.00-0.10); Basophils Percent Manual 0.0 % (0.2-2.0); Eosinophils Absolute Manual 0.84 10^3/uL (0.00-0.70); Eosinophils Percent Manual 7.0 % (0.9-7.0); Lymphocytes Absolute Manual 0.84 10^3/uL (1.20-3.80); Lymphocytes Percent Manual 7.0 % (20.5-60.0); Macrocytosis 1+; Monocytes Absolute Manual 0.48 10^3/uL (0.30-0.80); Monocytes Percent Manual 4.0 % (1.7-12.0); Segmented Neut Absolute Manual 9.92 10^3/uL (1.4-6.5); Segmented Neutrophils % Manual 82.0 (43.0-75.0)
== END 2024-11-29 23:59 | disposition home or self-care (01) ==
LOC: INF 12:58
PROVIDERS: PCP Nurse Practitioner Family; Visit Provider Student in an Organized Health Care Education/Training Program
DX: A31.8 Other mycobacterial infections (principal)
CPT/HCPCS: 36592; 80076; 82248; 82565; 85007; 85025; 85027

== ENCOUNTER 2024-11-28 12:58 | Outpatient (RCR) | payer OTHER, SELFPAY ==
--- NOTE | 2024-11-01 14:14 | PC.NURSE ---
Patient arrived at 1333 ambulating in stable condition. Labs were drawn and sent to the lab. Loosened old dressing on the PICC Line and removed. Cleansed area and allowed to dry. Applied stat lock to PICC line. Applied skin prep under stat lock and secured. Applied skin prep to area around PICC insertion site and applied CHG dressing. Dated, timed, and labled New PICC dressing. Cleansed each line there are 2 changed and flushed both lines and applied green alcohol caps to each cap.Patient tolerated well.
[2024-11-01 14:15] LABS: Hemoglobin 8.3 g/dL (12.0-16.0); Immature Granulocytes Abs Auto 0.03 10^3/uL (0.00-0.03); Immature Granulocytes Pct Auto 0.7 % (0.0-0.5); Lymphocytes Absolute Auto 0.9 10^3/uL (1.2-3.8); Mean Corpuscular HGB Conc 37.2 g/dL (29.9-35.2); Mean Corpuscular Hemoglobin 40.7 pg (26.7-34.0); Mean Corpuscular Volume 109.3 fL (81.0-99.0); Platelet Count 176 10^3/uL (150-450); Red Blood Count 2.04 10^6/uL (4.20-5.40); White Blood Count 4.3 10^3/uL (4.0-11.0)
[2024-11-01 14:18] LABS: Hematocrit 22.3 % (36.0-48.0)
[2024-11-01 14:31] LABS: Alanine Aminotransferase 27 U/L (14-59); Albumin Globulin Ratio 1.2; Albumin Level 3.6 g/dL (3.4-5.0); Alkaline Phosphatase 69 U/L (46-116); Anion Gap 14.9; Aspartate Amino Transferase 20 U/L (15-37); Blood Urea Nitrogen 12.0 mg/dL (7.0-18.0); Calcium 8.9 mg/dL (8.5-10.1); Carbon Dioxide 22.7 mmol/L (21.0-32.0); Chloride 105 mmol/L (98-107); Estimated GFR (African America 42 (>=60 mL/min/1.73m^2); Estimated GFR (Non-African Ame 35 (>=60 mL/min/1.73m^2); Globulin 2.9 g/dL; Glucose 93 mg/dL (74-106); Potassium 3.6 mmol/L (3.5-5.1); Sodium 139 mmol/L (136-145); Total Protein 6.5 g/dL (6.4-8.2)
--- NOTE | 2024-11-01 14:42 | PC.NURSE ---
Patient states she has had diarrhea all weekend and has been drinking gatorade to keep elctrolytes up. Silvia she told ordering She is done with Amikacin.
[2024-11-04 11:26] LABS: Glucose Urine UA NEGATIVE (NEGATIVE)
[2024-11-09] MEDS: ACETAMINOPHEN 325 MG TABLET 650 MG PO (12:39)
[2024-11-09] MEDS: DIPHENHYDRAMINE HCL 25 MG CAPSULE PO (12:39)
[2024-11-09 12:51] VITALS: BP 106/70; TEMP 37; O2SAT 98
[2024-11-09 13:07] VITALS: BP 106/70; PULSE 80; TEMP 37; O2SAT 98
[2024-11-09 13:11] VITALS: BP 122/78; PULSE 72; TEMP 36.6; O2SAT 98
[2024-11-09 14:11] VITALS: BP 124/77; PULSE 85; TEMP 36.9; O2SAT 95
--- NOTE | 2024-11-09 14:25 | PC.NURSE ---
1251: 1 unit PRBC initiated at this time. Meal offered, pt declines. 1311: Pt. tolerating infusion without c/o. VSS. 1345: Pt. without c/o. Denies needs.
[2024-11-09 14:31] VITALS: BP 124/76; PULSE 78; TEMP 36.8; O2SAT 96
[2024-11-15 09:38] VITALS: BP 141/86; PULSE 86; TEMP 36.2; O2SAT 98
--- NOTE | 2024-11-15 10:08 | PC.NURSE ---
10:00 Removed old picc line dressing and cleansed area. Cleansed with chlorhexadine , allowed to dry. Applied skin prep and allowed to dry. Next applied stat lock and placed in appropriate spot. Placed CHG dressing and changed j-loops. Patient tolerated well.
[2024-11-15 10:13] LABS: Hematocrit 24.5 % (36.0-48.0); Hemoglobin 8.8 g/dL (12.0-16.0); Immature Granulocytes Abs Auto 0.04 10^3/uL (0.00-0.03); Immature Granulocytes Pct Auto 1.0 % (0.0-0.5); Lymphocytes Absolute Auto 0.7 10^3/uL (1.2-3.8); Mean Corpuscular HGB Conc 35.9 g/dL (29.9-35.2); Mean Corpuscular Hemoglobin 38.6 pg (26.7-34.0); Platelet Count 227 10^3/uL (150-450); Red Blood Count 2.28 10^6/uL (4.20-5.40); White Blood Count 4.2 10^3/uL (4.0-11.0)
[2024-11-15 10:28] LABS: Alanine Aminotransferase 37 U/L (14-59); Albumin Globulin Ratio 1.1; Albumin Level 3.0 g/dL (3.4-5.0); Alkaline Phosphatase 149 U/L (46-116); Anion Gap 9.8; Aspartate Amino Transferase 31 U/L (15-37); Blood Urea Nitrogen 11.0 mg/dL (7.0-18.0); Calcium 8.6 mg/dL (8.5-10.1); Carbon Dioxide 26.3 mmol/L (21.0-32.0); Chloride 109 mmol/L (98-107); Estimated GFR (African America >60 (>=60 mL/min/1.73m^2); Estimated GFR (Non-African Ame >60 (>=60 mL/min/1.73m^2); Globulin 2.8 g/dL; Glucose 86 mg/dL (74-106); Potassium 3.1 mmol/L (3.5-5.1); Sodium 142 mmol/L (136-145); Total Protein 5.8 g/dL (6.4-8.2)
[2024-11-15 10:29] LABS: Mean Corpuscular Volume 107.5 fL (81.0-99.0)
[2024-11-15] MEDS: PALONOSETRON HCL 0.25 MG/5 ML VIAL IV (11:19)
--- NOTE | 2024-11-15 11:24 | PC.NURSE ---
1119: Pre-meds initiated at this time. Pt. without needs or c/o.
[2024-11-15 11:25] LABS: Iron 58.0 ug/dL (50.0-170.0); Percent Iron Saturation 23.4 %; Total Iron Binding Capacity 248.0 ug/dL (250.0-450.0)
[2024-11-15 11:41] LABS: Ferritin 563.0 ng/mL (8.0-252.0); Folate 32.80 ng/mL (8.60-58.90)
[2024-11-15] MEDS: DEXAMETHASONE SODIUM PHOSPHATE 10 MG in 0.9 % SODIUM CHLORIDE 100 ML 303 MG IV (11:44)
[2024-11-15] MEDS: WATER IV (12:08)
[2024-11-15] MEDS: DEXTROSE 5% IV (12:08)
[2024-11-15] MEDS: DEXTROSE 5 % IN WATER 250 ML 10 ML IV (12:08)
[2024-11-15] MEDS: [UNRECOGNIZED DRUG - OTHER] IV (12:08)
[2024-11-15 12:45] VITALS: BP 122/77; PULSE 73; TEMP 36.6; O2SAT 98
--- NOTE | 2024-11-15 13:09 | PC.NURSE ---
1245: Enhertu infusion completed at this time. Tolerated without c/o. VSS. Awaits to speak with Dr. Hope.
--- NOTE | 2024-11-15 13:12 | PC.NURSE ---
1311: Dr. Hope to chairside to speak with pt.
[2024-11-15] MEDS: POTASSIUM CHLORIDE 20 MEQ in 0.9 % SODIUM CHLORIDE 250 ML 130 MEQ IV (13:34)
--- NOTE | 2024-11-15 13:35 | PC.NURSE ---
1334: IV KCL initiated at this time per. Dr. Hope's order.
[2024-11-15] MEDS: PEGFILGRASTIM 6 MG/0.6 ML SQ (14:21)
[2024-11-16 04:07] LABS: Vitamin B12 >2000 pg/mL (232-1245)
[2024-11-16 08:08] LABS: CA 27.29 56.0 U/mL (0.0-38.6)
[2024-11-22 04:12] LABS: CA 15-3 43.4 U/mL (0.0-25.0)
== END 2024-11-29 23:59 | disposition home or self-care (01) ==
LOC: HEMC 12:58
PROVIDERS: PCP Nurse Practitioner Family; Visit Provider Internal Medicine Hematology & Oncology
DX: Z51.11 Encounter for antineoplastic chemotherapy (principal); C50.311 Malignant neoplasm of lower-inner quadrant of right female breast; C77.3 Secondary and unspecified malignant neoplasm of axilla and upper limb lymph nodes; Z79.899 Other long term (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 therapy; D70.1 Agranulocytosis secondary to cancer chemotherapy; Z15.09 Genetic susceptibility to other malignant neoplasm; Z79.818 Long term (current) use of other agents affecting estrogen receptors and estrogen levels; D64.81 Anemia due to antineoplastic chemotherapy; Z17.1 Estrogen receptor negative status [ER-]; Z17.22 Progesterone receptor negative status; A31.8 Other mycobacterial infections
CPT/HCPCS: 36430; 36591; 36592; 80053; 80076; 81003; 82248; 82565; 82607; 82728; 82746; 83540; 83550; 85007; 85025; 85027; 85652; 86140; 86300; 86850; 86900; 86901; 86923; 87086; 96366; 96367; 96372; 96375; 96413; J1100; J1453; J2469; J2506; J3480; J9358; P9016

== ENCOUNTER 2024-12-27 08:51 | Outpatient (RCR) | payer OTHER, SELFPAY ==
--- NOTE | 2024-12-13 14:10 | PC.NURSE ---
4641 patient here to have PICC line dressing changed REmoved old dressing and cleansed with chlorprep. Skin around insertion clean dry and intact small bruising visible. Scrubbed old blood off and allowed to dry. Next applied skin prep allowed to dry. adhered stat lock and redressed picc line dressing. Changed both port extensions, flushed and reapplied green caps. Patient tolerated well. Labs were also drawn and sent to lab. Patient discharged ambulating in stable condition.
[2024-12-13 14:20] LABS: Hemoglobin 8.1 g/dL (12.0-16.0); Mean Corpuscular HGB Conc 35.5 g/dL (29.9-35.2); Mean Corpuscular Hemoglobin 37.9 pg (26.7-34.0); Mean Corpuscular Volume 106.5 fL (81.0-99.0); Platelet Count 232 10^3/uL (150-450); Red Blood Count 2.14 10^6/uL (4.20-5.40); White Blood Count 18.3 10^3/uL (4.0-11.0)
[2024-12-13 14:33] LABS: Alanine Aminotransferase 22 U/L (14-59); Albumin Globulin Ratio 0.9; Albumin Level 3.1 g/dL (3.4-5.0); Alkaline Phosphatase 133 U/L (46-116); Aspartate Amino Transferase 12 U/L (15-37); Estimated GFR (African America 42 (>=60 mL/min/1.73m^2); Estimated GFR (Non-African Ame 35 (>=60 mL/min/1.73m^2); Globulin 3.5 g/dL; Total Protein 6.6 g/dL (6.4-8.2)
[2024-12-13 14:35] LABS: Hematocrit 22.8 % (36.0-48.0)
--- NOTE | 2024-12-13 14:37 | PC.NURSE ---
1434 Lab called with critical HCT 22.8 Dr. Hope was notified and states he will call the patient.
[2024-12-13 14:50] LABS: Basophils Abs Manual 0.00 10^3/uL (0.00-0.10); Basophils Percent Manual 0.0 % (0.2-2.0); Eosinophils Absolute Manual 0.36 10^3/uL (0.00-0.70); Eosinophils Percent Manual 2.0 % (0.9-7.0); Lymphocytes Absolute Manual 1.09 10^3/uL (1.20-3.80); Lymphocytes Percent Manual 6.0 % (20.5-60.0); Monocytes Absolute Manual 0.73 10^3/uL (0.30-0.80); Monocytes Percent Manual 4.0 % (1.7-12.0); Segmented Neut Absolute Manual 16.10 10^3/uL (1.4-6.5); Segmented Neutrophils % Manual 88.0 (43.0-75.0)
[2024-12-13 14:51] LABS: Macrocytosis 1+
== END 2024-12-30 23:59 | disposition home or self-care (01) ==
LOC: INF 08:51
PROVIDERS: PCP Nurse Practitioner Family; Visit Provider Student in an Organized Health Care Education/Training Program
DX: A31.8 Other mycobacterial infections (principal)
CPT/HCPCS: 36415; 36592; 80076; 82565; 85007; 85025; 85027

== ENCOUNTER 2024-12-27 08:51 | Outpatient (RCR) | payer OTHER, SELFPAY ==
--- NOTE | 2024-12-06 10:31 | XR_ITS ---
The [address] [address] Patient Name: IKE JONES MRN: [id number] date: 1970 Sex: F Assigned Patient Location: [facility] Current Patient Location: [facility] Accession/Order Number: [id number] Exam Date: 12/06/2024 10:45 Report Date: 12/06/2024 11:03 At the request of: AARTI NUNEZ MD Procedure: XR chest 1V Single view chest: CLINICAL HISTORY: check picc placement COMPARISON: None FINDINGS: Left-sided PICC line tip at the brachiocephalic/SVC junction. Heart appears normal in size. No consolidation pneumothorax pleural effusion or free air. XR/XR chest 1V IMPRESSION: LEFT-SIDED PICC LINE TIP AT THE BRACHIOCEPHALIC/SVC JUNCTION. Impression dictated by: Alok Nicolas Jr., D.O. 12/06/2024 11:03 AM Dictation Location: [place] [address] Electronically authenticated by: [id number] Y Date: 12/06/2024 11:03
[2024-12-06 10:40] VITALS: BP 130/94; PULSE 82; TEMP 36.4; O2SAT 95
[2024-12-06 10:40] LABS: Hematocrit 24.0 % (36.0-48.0); Hemoglobin 8.4 g/dL (12.0-16.0); Immature Granulocytes Abs Auto 0.30 10^3/uL (0.00-0.03); Immature Granulocytes Pct Auto 3.1 % (0.0-0.5); Lymphocytes Absolute Auto 1.0 10^3/uL (1.2-3.8); Mean Corpuscular HGB Conc 35.0 g/dL (29.9-35.2); Mean Corpuscular Hemoglobin 37.7 pg (26.7-34.0); Mean Corpuscular Volume 107.6 fL (81.0-99.0); Platelet Count 353 10^3/uL (150-450); Red Blood Count 2.23 10^6/uL (4.20-5.40); White Blood Count 9.6 10^3/uL (4.0-11.0)
--- NOTE | 2024-12-06 10:49 | PC.NURSE ---
1030 transported to radiology for CXR for picc placement. 1045 returned from x ray er wheelchair.
[2024-12-06 11:03] LABS: Alanine Aminotransferase 23 U/L (14-59); Albumin Globulin Ratio 1.0; Albumin Level 3.2 g/dL (3.4-5.0); Alkaline Phosphatase 121 U/L (46-116); Anion Gap 14.7; Aspartate Amino Transferase 22 U/L (15-37); Blood Urea Nitrogen 8.0 mg/dL (7.0-18.0); Calcium 9.0 mg/dL (8.5-10.1); Carbon Dioxide 24.2 mmol/L (21.0-32.0); Chloride 102 mmol/L (98-107); Estimated GFR (African America >60 (>=60 mL/min/1.73m^2); Estimated GFR (Non-African Ame 53 (>=60 mL/min/1.73m^2); Globulin 3.3 g/dL; Glucose 85 mg/dL (74-106); Magnesium 1.8 mg/dL (1.8-2.4); Potassium 3.9 mmol/L (3.5-5.1); Sodium 137 mmol/L (136-145); Total Protein 6.5 g/dL (6.4-8.2)
--- NOTE | 2024-12-06 13:08 | PC.NURSE ---
1100 Returned for radiology
--- NOTE | 2024-12-06 13:13 | PC.NURSE ---
1215 Dr Hope in and examines. speaks with patient. discussed having picc ine replaced due to mal positioning. patient verbalizes understanding 1230 Eats lunch 1300 ambulates to bed, procedure explained to patient. Awaiting Vascular Access (dynamic access) arrival. 1310 Dynamic access here.
[2024-12-06] MEDS: DEXTROSE 5 % IN WATER 250 ML 10 ML IV (13:45)
--- NOTE | 2024-12-06 13:52 | PC.NURSE ---
1345 picc insertion to rt upper arm per dynamic access see assessment
[2024-12-06] MEDS: PALONOSETRON HCL 0.25 MG/5 ML VIAL IV (14:01)
[2024-12-06] MEDS: DEXAMETHASONE SODIUM PHOSPHATE 10 MG in 0.9 % SODIUM CHLORIDE 100 ML 303 MG IV (14:01)
--- NOTE | 2024-12-06 14:19 | PC.NURSE ---
1420 resting in bed quietly pre med infusing
[2024-12-06] MEDS: WATER IV (14:43)
[2024-12-06] MEDS: [UNRECOGNIZED DRUG - OTHER] IV (14:43)
[2024-12-06] MEDS: DEXTROSE 5% IV (14:43)
[2024-12-06] MEDS: PEGFILGRASTIM 6 MG/0.6 ML SQ (15:29)
[2024-12-06 15:32] VITALS: BP 109/72; PULSE 78; TEMP 36.6; O2SAT 93
[2024-12-07 04:08] LABS: CA 15-3 41.4 U/mL (0.0-25.0)
[2024-12-07 06:12] LABS: CA 27.29 53.8 U/mL (0.0-38.6)
[2024-12-27 08:55] VITALS: BP 135/73; PULSE 82; TEMP 36.8; O2SAT 97
[2024-12-27 09:13] LABS: Hemoglobin 8.0 g/dL (12.0-16.0); Mean Corpuscular HGB Conc 34.6 g/dL (29.9-35.2); Mean Corpuscular Hemoglobin 37.6 pg (26.7-34.0); Mean Corpuscular Volume 108.5 fL (81.0-99.0); Platelet Count 304 10^3/uL (150-450); Red Blood Count 2.13 10^6/uL (4.20-5.40); White Blood Count 9.2 10^3/uL (4.0-11.0)
[2024-12-27 09:26] LABS: Hematocrit 23.1 % (36.0-48.0)
--- NOTE | 2024-12-27 09:30 | PC.NURSE ---
Dr. Hope notified of HCT 23.1
[2024-12-27 09:33] LABS: Alanine Aminotransferase 37 U/L (14-59); Albumin Globulin Ratio 1.0; Albumin Level 2.6 g/dL (3.4-5.0); Alkaline Phosphatase 108 U/L (46-116); Anion Gap 10.9; Aspartate Amino Transferase 38 U/L (15-37); Blood Urea Nitrogen 10.0 mg/dL (7.0-18.0); Calcium 8.4 mg/dL (8.5-10.1); Carbon Dioxide 25.6 mmol/L (21.0-32.0); Chloride 108 mmol/L (98-107); Estimated GFR (African America >60 (>=60 mL/min/1.73m^2); Estimated GFR (Non-African Ame >60 (>=60 mL/min/1.73m^2); Globulin 2.6 g/dL; Glucose 78 mg/dL (74-106); Magnesium 1.5 mg/dL (1.8-2.4); Potassium 3.5 mmol/L (3.5-5.1); Sodium 141 mmol/L (136-145); Total Protein 5.2 g/dL (6.4-8.2)
[2024-12-27] MEDS: DEXTROSE 5 % IN WATER 250 ML 10 ML IV (10:15)
[2024-12-27] MEDS: PALONOSETRON HCL 0.25 MG/5 ML VIAL IV (10:18)
[2024-12-27] MEDS: EPOETIN ALFA-EPBX 20,000 UNIT/ML VIAL 20000 UNIT SUBQ (10:23)
[2024-12-27 10:24] LABS: Basophils Abs Manual 0.09 10^3/uL (0.00-0.10); Basophils Percent Manual 1.0 % (0.2-2.0); Eosinophils Absolute Manual 0.27 10^3/uL (0.00-0.70); Eosinophils Percent Manual 3.0 % (0.9-7.0); Lymphocytes Absolute Manual 0.64 10^3/uL (1.20-3.80); Lymphocytes Percent Manual 7.0 % (20.5-60.0); Monocytes Absolute Manual 0.27 10^3/uL (0.30-0.80); Monocytes Percent Manual 3.0 % (1.7-12.0); Segmented Neut Absolute Manual 7.91 10^3/uL (1.4-6.5); Segmented Neutrophils % Manual 86.0 (43.0-75.0)
[2024-12-27 10:26] LABS: Anisocytosis 1+; Macrocytosis 1+
[2024-12-27] MEDS: DEXAMETHASONE SODIUM PHOSPHATE 10 MG in 0.9 % SODIUM CHLORIDE 100 ML 303 MG IV (10:44)
[2024-12-27] MEDS: MAGNESIUM SULFATE IN WATER 2 GM/50 ML PREMIX IV (11:14)
[2024-12-27] MEDS: WATER IV (12:11)
[2024-12-27] MEDS: DEXTROSE 5% IV (12:11)
[2024-12-27] MEDS: [UNRECOGNIZED DRUG - OTHER] IV (12:11)
[2024-12-27 13:33] VITALS: BP 114/76; PULSE 80; TEMP 36.5; O2SAT 94
[2024-12-27] MEDS: PEGFILGRASTIM 6 MG/0.6 ML SQ (13:33)
--- NOTE | 2024-12-27 14:01 | PC.NURSE ---
1018: Pre-infusion meds initiated at this time. Pt. eating breakfast. Denies c/o.
--- NOTE | 2024-12-27 14:01 | PC.NURSE ---
1114: IV magnesium infusion initiated as instructed. Pt. denies needs or c/o. Attempts to nap
--- NOTE | 2024-12-27 14:02 | PC.NURSE ---
1211: IV Enhertu infusing at this time. Pt denies needs or c/o.
[2024-12-28 08:08] LABS: CA 15-3 41.5 U/mL (0.0-25.0); CA 27.29 40.4 U/mL (0.0-38.6)
== END 2024-12-30 23:59 | disposition home or self-care (01) ==
LOC: HEMC 08:51
PROVIDERS: PCP Nurse Practitioner Family; Visit Provider Internal Medicine Hematology & Oncology
DX: Z51.11 Encounter for antineoplastic chemotherapy (principal); A31.8 Other mycobacterial infections; C50.311 Malignant neoplasm of lower-inner quadrant of right female breast; Z79.899 Other long term (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 therapy; D70.1 Agranulocytosis secondary to cancer chemotherapy; R11.2 Nausea with vomiting, unspecified; Z15.09 Genetic susceptibility to other malignant neoplasm; Z79.818 Long term (current) use of other agents affecting estrogen receptors and estrogen levels; D64.81 Anemia due to antineoplastic chemotherapy; C77.3 Secondary and unspecified malignant neoplasm of axilla and upper limb lymph nodes; Z17.1 Estrogen receptor negative status [ER-]; Z17.22 Progesterone receptor negative status; Z90.710 Acquired absence of both cervix and uterus; Z90.13 Acquired absence of bilateral breasts and nipples; C78.7 Secondary malignant neoplasm of liver and intrahepatic bile duct; Z79.01 Long term (current) use of anticoagulants; Z90.722 Acquired absence of ovaries, bilateral; I10 Essential (primary) hypertension; R19.00 Intra-abdominal and pelvic swelling, mass and lump, unspecified site
CPT/HCPCS: 36415; 36569; 36592; 71045; 80053; 80076; 82565; 83735; 85007; 85025; 85027; 86300; 96367; 96372; 96375; 96413; G0463; J1100; J1453; J2469; J2506; J3475; J9358; Q5106

== ENCOUNTER 2025-01-23 12:08 | Outpatient (RCR) | payer OTHER, SELFPAY ==
[2025-01-10 14:38] LABS: Estimated GFR (African America >60 (>=60 mL/min/1.73m^2); Estimated GFR (Non-African Ame 59 (>=60 mL/min/1.73m^2)
[2025-01-10 14:39] LABS: Alanine Aminotransferase 22 U/L (14-59); Albumin Globulin Ratio 1.0; Albumin Level 2.6 g/dL (3.4-5.0); Alkaline Phosphatase 119 U/L (46-116); Aspartate Amino Transferase 20 U/L (15-37); Globulin 2.6 g/dL; Total Protein 5.2 g/dL (6.4-8.2)
[2025-01-10 14:47] LABS: Hematocrit 25.8 % (36.0-48.0); Hemoglobin 8.7 g/dL (12.0-16.0); Mean Corpuscular HGB Conc 33.7 g/dL (29.9-35.2); Mean Corpuscular Hemoglobin 37.2 pg (26.7-34.0); Mean Corpuscular Volume 110.3 fL (81.0-99.0); Platelet Count 261 10^3/uL (150-450); Red Blood Count 2.34 10^6/uL (4.20-5.40); White Blood Count 10.3 10^3/uL (4.0-11.0)
[2025-01-10 14:49] LABS: Basophils Abs Manual 0.00 10^3/uL (0.00-0.10); Basophils Percent Manual 0.0 % (0.2-2.0); Eosinophils Absolute Manual 0.20 10^3/uL (0.00-0.70); Eosinophils Percent Manual 2.0 % (0.9-7.0); Lymphocytes Absolute Manual 0.82 10^3/uL (1.20-3.80); Lymphocytes Percent Manual 8.0 % (20.5-60.0); Macrocytosis 1+; Monocytes Absolute Manual 0.61 10^3/uL (0.30-0.80); Monocytes Percent Manual 6.0 % (1.7-12.0); Segmented Neut Absolute Manual 8.65 10^3/uL (1.4-6.5); Segmented Neutrophils % Manual 84.0 (43.0-75.0)
[2025-01-23 12:59] LABS: Hematocrit 24.9 % (36.0-48.0); Hemoglobin 8.7 g/dL (12.0-16.0); Mean Corpuscular HGB Conc 34.9 g/dL (29.9-35.2); Mean Corpuscular Hemoglobin 37.8 pg (26.7-34.0); Mean Corpuscular Volume 108.3 fL (81.0-99.0); Platelet Count 214 10^3/uL (150-450); Red Blood Count 2.30 10^6/uL (4.20-5.40); White Blood Count 26.6 10^3/uL (4.0-11.0)
[2025-01-23 13:08] LABS: Alanine Aminotransferase 43 U/L (14-59); Albumin Globulin Ratio 1.1; Albumin Level 3.0 g/dL (3.4-5.0); Alkaline Phosphatase 132 U/L (46-116); Aspartate Amino Transferase 22 U/L (15-37); Estimated GFR (African America >60 (>=60 mL/min/1.73m^2); Estimated GFR (Non-African Ame >60 (>=60 mL/min/1.73m^2); Globulin 2.8 g/dL; Total Protein 5.8 g/dL (6.4-8.2)
[2025-01-23 13:25] LABS: Basophils Abs Manual 0.00 10^3/uL (0.00-0.10); Basophils Percent Manual 0.0 % (0.2-2.0); Eosinophils Absolute Manual 0.79 10^3/uL (0.00-0.70); Eosinophils Percent Manual 3.0 % (0.9-7.0); Lymphocytes Absolute Manual 2.39 10^3/uL (1.20-3.80); Lymphocytes Percent Manual 9.0 % (20.5-60.0); Monocytes Absolute Manual 0.53 10^3/uL (0.30-0.80); Monocytes Percent Manual 2.0 % (1.7-12.0); Segmented Neut Absolute Manual 22.87 10^3/uL (1.4-6.5); Segmented Neutrophils % Manual 86.0 (43.0-75.0)
[2025-01-23 13:26] LABS: Hypochromasia 1+; Ovalocytes 1+; Poikilocytosis 1+; RBC Morphology ABNORMAL; Stomatocytes 1+
== END 2025-01-29 23:59 | disposition home or self-care (01) ==
LOC: INF 12:08
PROVIDERS: PCP Nurse Practitioner Family; Visit Provider Student in an Organized Health Care Education/Training Program
DX: A31.8 Other mycobacterial infections (principal)
CPT/HCPCS: 36592; 80076; 82248; 82565; 85007; 85027

== ENCOUNTER 2025-01-23 12:08 | Outpatient (RCR) | payer OTHER, SELFPAY ==
[2025-01-02 12:42] LABS: Hemoglobin 7.7 g/dL (12.0-16.0); Mean Corpuscular HGB Conc 35.2 g/dL (29.9-35.2); Mean Corpuscular Hemoglobin 38.5 pg (26.7-34.0); Mean Corpuscular Volume 109.5 fL (81.0-99.0); Platelet Count 244 10^3/uL (150-450); Red Blood Count 2.00 10^6/uL (4.20-5.40); White Blood Count 22.9 10^3/uL (4.0-11.0)
[2025-01-02 12:50] LABS: Hematocrit 21.9 % (36.0-48.0)
[2025-01-02 12:58] LABS: Alanine Aminotransferase 43 U/L (14-59); Albumin Globulin Ratio 0.9; Albumin Level 2.6 g/dL (3.4-5.0); Alkaline Phosphatase 138 U/L (46-116); Anion Gap 14.0; Aspartate Amino Transferase 26 U/L (15-37); Blood Urea Nitrogen 8.0 mg/dL (7.0-18.0); Calcium 8.3 mg/dL (8.5-10.1); Carbon Dioxide 24.4 mmol/L (21.0-32.0); Chloride 106 mmol/L (98-107); Estimated GFR (African America >60 (>=60 mL/min/1.73m^2); Estimated GFR (Non-African Ame 59 (>=60 mL/min/1.73m^2); Globulin 2.9 g/dL; Glucose 85 mg/dL (74-106); Potassium 3.4 mmol/L (3.5-5.1); Sodium 141 mmol/L (136-145); Total Protein 5.5 g/dL (6.4-8.2)
[2025-01-02 13:00] LABS: Magnesium 1.6 mg/dL (1.8-2.4)
[2025-01-02] MEDS: EPOETIN ALFA-EPBX 20,000 UNIT/ML VIAL 20000 UNIT SUBQ (13:06)
[2025-01-02 13:12] LABS: Basophils Abs Manual 0.00 10^3/uL (0.00-0.10); Basophils Percent Manual 0.0 % (0.2-2.0); Eosinophils Absolute Manual 0.91 10^3/uL (0.00-0.70); Eosinophils Percent Manual 4.0 % (0.9-7.0); Lymphocytes Absolute Manual 3.20 10^3/uL (1.20-3.80); Lymphocytes Percent Manual 14.0 % (20.5-60.0); Monocytes Absolute Manual 0.68 10^3/uL (0.30-0.80); Monocytes Percent Manual 3.0 % (1.7-12.0); Segmented Neut Absolute Manual 18.09 10^3/uL (1.4-6.5); Segmented Neutrophils % Manual 79.0 (43.0-75.0)
[2025-01-02 13:13] LABS: Macrocytosis 1+
[2025-01-03 13:50] LABS: Hemoglobin 8.0 g/dL (12.0-16.0); Mean Corpuscular HGB Conc 35.1 g/dL (29.9-35.2); Mean Corpuscular Hemoglobin 37.9 pg (26.7-34.0); Mean Corpuscular Volume 108.1 fL (81.0-99.0); Platelet Count 244 10^3/uL (150-450); Red Blood Count 2.11 10^6/uL (4.20-5.40)
[2025-01-03 14:05] LABS: Hematocrit 22.8 % (36.0-48.0); White Blood Count 31.7 10^3/uL (4.0-11.0)
[2025-01-03 14:06] LABS: Alanine Aminotransferase 39 U/L (14-59); Albumin Globulin Ratio 1.0; Albumin Level 2.8 g/dL (3.4-5.0); Alkaline Phosphatase 151 U/L (46-116); Anion Gap 10.7; Aspartate Amino Transferase 22 U/L (15-37); Blood Urea Nitrogen 7.0 mg/dL (7.0-18.0); Calcium 8.7 mg/dL (8.5-10.1); Carbon Dioxide 26.5 mmol/L (21.0-32.0); Chloride 104 mmol/L (98-107); Estimated GFR (African America >60 (>=60 mL/min/1.73m^2); Estimated GFR (Non-African Ame 56 (>=60 mL/min/1.73m^2); Globulin 2.9 g/dL; Glucose 86 mg/dL (74-106); Magnesium 1.6 mg/dL (1.8-2.4); Potassium 3.2 mmol/L (3.5-5.1); Sodium 138 mmol/L (136-145); Total Protein 5.7 g/dL (6.4-8.2)
[2025-01-03 14:14] LABS: Segmented Neut Absolute Manual 27.57 10^3/uL (1.4-6.5); Segmented Neutrophils % Manual 87.0 (43.0-75.0)
[2025-01-03 14:15] LABS: Band Neutrophils Absolute 1.0 10^3/uL (0.0-0.3); Basophils Abs Manual 0.00 10^3/uL (0.00-0.10); Basophils Percent Manual 0.0 % (0.2-2.0); Eosinophils Absolute Manual 0.31 10^3/uL (0.00-0.70); Eosinophils Percent Manual 1.0 % (0.9-7.0); Lymphocytes Absolute Manual 1.90 10^3/uL (1.20-3.80); Lymphocytes Percent Manual 6.0 % (20.5-60.0); Macrocytosis 2+; Monocytes Absolute Manual 0.95 10^3/uL (0.30-0.80); Monocytes Percent Manual 3.0 % (1.7-12.0)
[2025-01-09 13:23] VITALS: BP 129/77; PULSE 80; TEMP 37.1; O2SAT 98
[2025-01-17 09:39] VITALS: BP 114/76; PULSE 80; TEMP 35.6; O2SAT 96
[2025-01-17 10:04] LABS: Hematocrit 26.6 % (36.0-48.0); Hemoglobin 9.2 g/dL (12.0-16.0); Immature Granulocytes Abs Auto 0.03 10^3/uL (0.00-0.03); Immature Granulocytes Pct Auto 0.4 % (0.0-0.5); Lymphocytes Absolute Auto 0.7 10^3/uL (1.2-3.8); Mean Corpuscular HGB Conc 34.6 g/dL (29.9-35.2); Mean Corpuscular Hemoglobin 37.9 pg (26.7-34.0); Mean Corpuscular Volume 109.5 fL (81.0-99.0); Platelet Count 234 10^3/uL (150-450); Red Blood Count 2.43 10^6/uL (4.20-5.40); White Blood Count 6.7 10^3/uL (4.0-11.0)
[2025-01-17 10:23] LABS: Alanine Aminotransferase 52 U/L (14-59); Albumin Globulin Ratio 0.9; Albumin Level 2.5 g/dL (3.4-5.0); Alkaline Phosphatase 80 U/L (46-116); Anion Gap 11.0; Aspartate Amino Transferase 32 U/L (15-37); Blood Urea Nitrogen 15.0 mg/dL (7.0-18.0); Calcium 8.4 mg/dL (8.5-10.1); Carbon Dioxide 24.8 mmol/L (21.0-32.0); Chloride 109 mmol/L (98-107); Estimated GFR (African America >60 (>=60 mL/min/1.73m^2); Estimated GFR (Non-African Ame >60 (>=60 mL/min/1.73m^2); Globulin 2.9 g/dL; Glucose 79 mg/dL (74-106); Potassium 3.8 mmol/L (3.5-5.1); Sodium 141 mmol/L (136-145); Total Protein 5.4 g/dL (6.4-8.2)
--- NOTE | 2025-01-17 10:32 | PC.NURSE ---
0957: Dr. Hope to chairside for MD visit
[2025-01-17] MEDS: DEXTROSE 5 % IN WATER 250 ML 10 ML IV (11:40)
[2025-01-17] MEDS: PALONOSETRON HCL 0.25 MG/5 ML VIAL IV (11:57)
[2025-01-17] MEDS: DEXAMETHASONE SODIUM PHOSPHATE 10 MG in 0.9 % SODIUM CHLORIDE 100 ML 303 MG IV (11:57)
[2025-01-17] MEDS: EPOETIN ALFA-EPBX 20,000 UNIT/ML VIAL 20000 UNIT SUBQ (12:27)
[2025-01-17] MEDS: WATER IV (12:56)
[2025-01-17] MEDS: [UNRECOGNIZED DRUG - OTHER] IV (12:56)
[2025-01-17] MEDS: DEXTROSE 5% IV (12:56)
--- NOTE | 2025-01-17 13:21 | PC.NURSE ---
1157: Pre-meds initiated at this time. Pt. without c/o or needs. Lunch tray ordered.
--- NOTE | 2025-01-17 13:24 | PC.NURSE ---
1256: IV Enhertu initiated at this time. Pt. attempts to nap.
[2025-01-17] MEDS: PEGFILGRASTIM 6 MG/0.6 ML SQ (13:46)
[2025-01-17 13:50] VITALS: BP 114/74; PULSE 78; TEMP 36.8; O2SAT 97
[2025-01-18 04:07] LABS: CA 15-3 45.0 U/mL (0.0-25.0)
[2025-01-18 05:11] LABS: CA 27.29 51.0 U/mL (0.0-38.6)
== END 2025-01-29 23:59 | disposition home or self-care (01) ==
LOC: HEMC 12:08
PROVIDERS: PCP Nurse Practitioner Family; Visit Provider Internal Medicine Hematology & Oncology
DX: Z51.11 Encounter for antineoplastic chemotherapy (principal); C50.311 Malignant neoplasm of lower-inner quadrant of right female breast; Z79.899 Other long term (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 therapy; D70.1 Agranulocytosis secondary to cancer chemotherapy; Z51.12 Encounter for antineoplastic immunotherapy; R11.2 Nausea with vomiting, unspecified; C77.9 Secondary and unspecified malignant neoplasm of lymph node, unspecified; Z15.09 Genetic susceptibility to other malignant neoplasm; Z79.818 Long term (current) use of other agents affecting estrogen receptors and estrogen levels; D64.81 Anemia due to antineoplastic chemotherapy; C77.3 Secondary and unspecified malignant neoplasm of axilla and upper limb lymph nodes; Z17.1 Estrogen receptor negative status [ER-]; Z17.22 Progesterone receptor negative status; A31.8 Other mycobacterial infections
CPT/HCPCS: 36415; 36592; 80053; 80076; 82248; 82565; 83735; 85007; 85025; 85027; 86300; 87040; 96367; 96372; 96375; 96413; G0463; J1100; J1453; J2469; J2506; J9358; Q5106

== ENCOUNTER 2025-01-30 13:57 | Outpatient (OUT) | payer OTHER, SELFPAY ==
--- OUTSIDE RECORDS SUMMARY | 2025-01-30 14:01 | XMS_ITS | Clinical Summary ---
Author Organization [facility] Address [address] [place] [address] Care Team Providers Care Behavioral Technician Name Role Phone Phys, Not On File Primary Care Provider Jhon Rodarte MD Unavailable Social History Tobacco UseTypesPacks/DayYears UsedDateSmoking Tobacco: Never Assessed CommentsUnknownSex and Gender InformationValueDate RecordedSex Assigned at Not on fileLegal CebMpvasl10/08/2024 2:31 PM EDTGender IdentityNot on fileSexual OrientationNot on file Plan of Treatment Health MaintenanceDue DateLast DoneCommentsCologuard (average risk only) 1970 2096Fetclrsbohp96/11/1971Colorectal Cancer Dcrrqosse17/11/1971FIT (average risk only)1970Hepatitis C Gpuxqzzwp75/11/1971Alternating Mammogram/MRI 1982DTaP,Tdap,and Td Vaccines (1 - Tdap)1989Hepatitis B Vaccine ages 19 years and older (1 of 3 - 19+ 3-dose series)1989Breast Cancer Screening 10/10/19905626Pzboaryrz89/11/1991Cervical Cancer Screening: Mxjtttwy58/11/1992 Pneumococcal Vaccines 50years + (1 of 1 - PCV)2020Zoster Recombinant Vaccines (1 of 2)2020OVID-19 Vaccine (1 - 2024- season)2024 Influenza Vaccine (#1)2024Respiratory Syncytial Virus (RSV) or ages 60 years and older (1 - 1-dose 75+ series)2045Respiratory Syncytial Virus (RSV) ages 0 thru 19 monthsAged OutNo longer eligible based on patient's age to complete this topic Care Teams Team MemberRelationshipSpecialtyStart DateEnd Date Phys, Not On File PCP - Tahrxjv02/8/24 Jhon Rosado MD [address] [facility] [address] [place] [address] General Mpjoqfm69/8/24
--- OUTSIDE RECORDS SUMMARY | 2025-01-30 14:01 | XMS_ITS | Clinical Summary ---
Author Organization [facility] Address [address] [place] [address] Care Team Providers Care Track Repair Person Name Role Phone Randy Lu MD Primary Care Provider + [phone] Allergies Active AllergyReactionsCriticalityNoted TvphNerrycjsZowextycfcd26/02/2025 QlytscjzzxJlguw47/28/2024 Other Reaction(s): Flushing JfyqifiaeffUhrsLel18/09/2024MeperidineSwelling,SlvbrptWoki23/16/2019 Other Reaction(s): Other, Unknown Meperidine WdyQzxvseq88/01/1512Xippyzsxayui48/25/6389ZwmuhfukadzIkfxw07/07/2024 Rash vomiting Veissrciwp33/25/2024 Other Reaction(s): Other Intolerance: experienced acute kidney injury during a hospitalization, suspected due to vancomycin. Wound Dressing AdhesiveRash,Unknown,ZvmqjjxEql81/01/2023 Medications MedicationSigDispense QuantityRefillsLast FilledStart DateEnd DateStatus metoprolol succinate XL (Toprol-XL) 100 MG 24 hr tablet Take 100 mg by mouth in the morning.Active potassium chloride CR (Klor-Con) 10 MEQ ER tablet TAKE 4 TABLETS (40 MEQ) BY MOUTH ONCE DAILY FOR 2 DAYS. DO NOT CRUSH, CHEW, OR SPLIT.Active gabapentin (Neurontin) 300 MG capsule TAKE ONE CAPSULE BY MOUTH TWICE A DAY FOR HOT BCXYVQQ5605/02/2023ctive FeroSul 325 (65 Fe) MG tablet TAKE 1 TABLET (325 MG TOTAL) BY MOUTH IN THE MORNING.06/04/2022ctive prochlorperazine (Compazine) 10 MG tablet TAKE ONE TABLET BY MOUTH THREE TIMES A DAY NEEDED FOR DNMHHL3104/21/2023ctive gabapentin (Neurontin) 300 MG capsule Take 300 mg by mouth in the morning and 300 mg before bedtime.Active pyridoxine (B-6) 50 MG tablet Take 50 mg by mouth in the morning.03/16/2024tive Eliquis 5 MG tablet Take 5 mg by mouth in the morning and 5 mg in the evening.09/18/2023ctive Active Problems ProblemNoted DateDiagnosed DateRetinal tear of right eye12/30/2023Vitreous hemorrhage of right eye12/30/2023omplex ovarian cyst05/26/2023Invasive ductal carcinoma of breast, right05/26/2023Well woman exam with routine gynecological exam05/26/2023 Encounters DateTypeDepartmentCare QnnpEiwrzrcrekv82/07/2025bstract [facility] [address] [address] [place] [phone] Evna Thompson DO 11/21/2024bstract [facility] [address] [address] [place] [phone] Evan Thompson DO from Last 3 Months Family History * Patient is adopted Medical HistoryRelationNameCommentsHeart diseaseFatherRelationNameStatusComments FatherDeceasedMotherAlive Social History Tobacco UseTypesPacks/DayYears UsedDateSmoking Tobacco: NeverSmokeless Tobacco: Never Tobacco Cessation:Counseling Given: Not Answered Alcohol UseStandard Drinks/WeekCommentsNever0 (1 standard drink = 0.6 oz pure alcohol)Caffeine intake: 1-2 cups per dayCommentsNoSex and Gender InformationValueDate RecordedSex Assigned at BirthNot on fileLegal SexFemale 05/14/2022 6:51 PM EDTGender IdentityNot on fileSexual OrientationNot on file Last Filed Vital Signs Vital SignReadingTime TakenCommentsBlood Lolmtrdk392/68006/01/2024 11:21 AM EDT Pulse--Temperature--Respiratory Rate--Oxygen Saturation--Inhaled Oxygen Concentration--Gbepmt68.5 kg (188 lb 6.4 oz)06/01/2024 11:21 AM ASUKctjdj522.3 cm (5' 11 )01/25/2024 10:07 AM ESTBody Mass Index26.28103/26/2023 10:07 AM EST Plan of Treatment DateTypeDepartmentCare Team (Latest Contact Info)Woapnyniooe75/13/2026 10:00 AM EDTOffice Visit [facility] [address] [phone] Evan Thompson, [address] [place] [address] Health MaintenanceDue DateLast DoneCommentsCT Iajgmhkyoena91/11/1971Colonoscopy 1970FIT1970FOBT1970 4663Lmxgntpfuebpc51/11/1971Colorectal Cancer Osfgclxcw39/07/2025FIT-DNA504/08/20213460Wclvpfifl45/16/202508/, 05/08/2023, 12/27/2021, Additional history existsCOVID-19 Vaccine ( season)/08/2020, 11/15/2020Influenza Vaccine (#1)2024 11/20/2019, 11/14/2019, 12/13/2018, Additional history existsPap Smear06/02/2027 06/01/2024, 06/01/2023, 12/27/2021ervical Cancer Slyhzbbgk83/01/2029HPV/Cotest 05/31/2028Pneumococcal Vaccine: Pediatrics (0 to 5 Years) and At-Risk Patients (6 to 64 Years)Aged OutNo longer eligible based on patient's age to complete this topic Procedures Procedure NamePriorityDate/TimeAssociated DiagnosisCommentsPAP SMEARRoutine 06/01/2024 12:00 AM EDTBI MAMMOGRAM SCREENING JBWRZSXBDIolzoyp54/28/2022 12:00 PM EDT from Last 3 Months or Most Recently Relevant to Health Maintenance Results * Pap Smear (06/01/2024 12:00 AM EDT)Specimen (Source)Anatomical Location / LateralityCollection Method / VolumeCollection TimeReceived TimeSwabCervical swab / Unknown Narrative Authorizing ProviderResult TypeResult StatusFazio Nurse [facility] ObLAB CYTOLOGY ORDERABLESFinal ResultPerforming OrganizationAddressCity/State/ZIP CodePhone Number EXTERNAL LAB * Bilateral screening mammogram (12/27/2021 12:00 PM EDT)Anatomical Region LateralityModalityBreastBilateralMammographySpecimen (Source)Anatomical Location / LateralityCollection Method / VolumeCollection TimeReceived Time Narrative 12/27/2021 12:00 PM EDT PERFORMED AT [facility] LOCATION:[id number] Procedure Note CONVERSION, GENERIC - 09/05/2022 PERFORMED AT [facility] LOCATION:[id number] Authorizing ProviderResult TypeResult StatusBo PETERSON BI PROCEDURES Final Result from Last 3 Months or Most Recently Relevant to Health Maintenance Insurance Care Teams Team MemberRelationshipSpecialtyStart DateEnd Randy Lu MD [address] [facility], [facility] [address] PCP - GeneralFamily Medicine04/02/23
--- OUTSIDE RECORDS SUMMARY | 2025-01-30 14:02 | XMS_ITS | Encounter Summary ---
Author Organization [facility] [employer] Address [id number] [address] [place] [address] Care Team Providers Care Icu Registered Nurse Name Role Phone Amy Collier INDUSTRIAL ECOLOGIST-TOOL SHAPER SETUP OPERATOR Primary Care Provider + Encounter Details DateTypeDepartmentCare Team (Latest Contact Info)Cmyrfkozrkf12/05/2025Telephone [facility] Physicians Plastic and Reconstructive Surgery [address] [facility] [address] [place] [address] Viviane Lopez CMA Social History Tobacco UseTypesPacks/DayYears UsedDateSmoking Tobacco: NeverPassive Smoke Exposure: PastSmokeless Tobacco: NeverAlcohol UseStandard Drinks/WeekCommentsNot Currently0 (1 standard drink = 0.6 oz pure alcohol)Social Connection and Isolation PanelAnswerDate RecordedIn a typical week, how many times do you talk on the phone with family, friends, or neighbors?Twice a week02/27/2022How often do you get together with friends or relatives?Three times a week02/27/2022How often do you attend yazdanism or roman catholic services?More than 4 times per year 2Do you belong to any clubs or organizations such as yazdanism groups, unions, fraternal or athletic groups, or school groups?Yes02/27/2022How often do you attend meetings of the clubs or organizations you belong to?1 to 4 times per year02/27/2022re you , , , , never , or living with a partner?Aelnfea1402/27/2022UDIT-CAnswerDate RecordedQ1: How often do you have a drink containing alcohol?2-3 times a week02/27/2022Q2: How many drinks containing alcohol do you have on a typical day when you are drinking?1 or Q3: How often do you have six or more drinks on one occasion?Less than waakxcv5802/27/2022verall Financial Resource Strain (CARDIA)AnswerDate RecordedHow hard is it for you to pay for the very basics like food, housing, medical care, and heating?Not hard at all02/27/2022HQ-2AnswerDate RecordedTotal Egzxe482[facility] Occupational Health - Occupational Stress QuestionnaireAnswerDate RecordedDo you feel stress - tense, restless, nervous, or anxious, or unable to sleep at night because yourmind is troubled all the time - these days?To some ijcbpe6202/27/2022Exercise Vital SignAnswerDate Recorded On average, how many days per week do you engage in moderate to strenuous exercise (like a brisk walk)?3 days02/27/2022n average, how many minutes do you engage in exercise at this level?60 min02/27/2022RAPARE - TransportationAnswer Date RecordedIn the past 12 months, has lack of transportation kept you from medical appointments or from getting medications?No01/04/2025In the past 12 months, has lack of transportation kept you from meetings, work, or from getting things needed for daily living?No01/04/2025HC UtilitiesAnswerDate RecordedIn the past 12 months has the [employer], gas, oil, or water company threatened to shut off services in your home?No01/04/2025Housing InstabilityAnswerDate RecordedAre you worried or concerned that in the next two months you may not have stable housing that you own, rent or stay in as a part of a household?No 01/04/2025hildcareAnswerDate RecordedDo problems getting childcare center administrator make it difficult for you to work or study?No02/27/2022EmploymentAnswerDate RecordedDo you need help finding a local career center and/or a training program?No 02/27/2022Hunger ScreeningAnswerDate RecordedWithin the past 12 months we worried whether our food would run out before we got money to buy more.Never True01/05/2025Within the past 12 months the food we bought just didn't last and we didn't have money to get more.Never True01/05/2025Purpose - LifeAnswerDate RecordedI have a purpose and direction in my life.Agree02/27/2022EducationAnswer Date RecordedWhat is the highest level of school you have completed or the highest degree you have received?Some college, no zvmhus8002/27/2022 CommentsNoSex and Gender InformationValueDate RecordedSex Assigned at BirthNot on fileLegal UqmEgtkju45/06/2015 12:12 PM EDTGender IdentityNot on fileSexual OrientationNot on filedocumented as of this encounter Functional Status documented as of this encounter Miscellaneous Notes * Telephone Encounter - Viviane Lopez CMA - 01/04/2025 9:23 AM EST Patient called in she said that her white blood count is really high and she was advised to call and see if is able to perform surgery on her still.her surgery is on 01/06/25. She said that she had her lab work down at [facility], I will call and obtain and labwork from them. * Telephone Encounter - AMEENA Kennedy - 01/04/2025 9:23 AM EST Spoke with patient regarding her elevated WBC count of 31.7. Patient has been contacted by her oncologist who eb blood cultures yesterday. Patient states that she ???feels awful?? . She has been having issues with nausea and diarrhea. Advised patient to present to the nearest ER for further evaluation. She is agreeable to have her significant other drive her to the ER. Discussed that if symptoms worsen that she should call 911. Patient verbalized understanding. documented in this encounter Plan of Treatment Not on file documented as of this encounter Goals GoalPatient Goal TypeAssociated ProblemsRecent ProgressPatient-Stated?Author return home Mariah Fox RN Note: Evaluation of progress towards goal: patient will return home at discharge with [facility] following for outpatient chemo/labs/IV antibiotics Autogenerated Goal Care PlanAutogenerated ProblemNoGriffin, Naomidocumented as of this encounter Visit Diagnoses Not on filedocumented in this encounter Additional Health Concerns Active ProblemsNoted DateDiagnosed DateAutogenerated Boyqplj8112/30/2024Infection Onset DateLast IndicatedResolved TimeCRO Comment:LT 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
--- OUTSIDE RECORDS SUMMARY | 2025-01-30 14:02 | XMS_ITS | Clinical Summary ---
Author Organization [facility] Address [address] [place] [address] Phone Care Team Providers Care Stonemason Name Role Phone Randy Lu DO Primary Care Provider Allergies Active AllergyReactionsCriticalityNoted IjbfRnizhvczZolzmkzqEvufBwi74/13/2024 PxqpqprsihImgbgpniSdmnon34/11/2024 Medications MedicationSigDispense QuantityRefillsLast FilledStart DateEnd DateStatus chlorthalidone (Hygroton) 50 mg tablet Take 1 tablet (50 mg) by mouth once daily.Active cyclobenzaprine (Flexeril) 10 mg tablet Take 1 tablet (10 mg) by mouth 3 times a day as needed for muscle spasms.Active traZODone (Desyrel) 50 mg tablet Take 1 tablet (50 mg) by mouth once daily at bedtime.Active spironolactone (Aldactone) 25 mg tablet Indications:HypokalemiaTake 1 tablet (25 mg) by mouth once daily. 90 tablet ctive chlorthalidone (Hygroton) 25 mg tablet Indications:Essential (primary) hypertensionTAKE ONE TABLET BY MOUTH DAILY 90 tablet ctive lisinopril 20 mg tablet Indications:Essential (primary) hypertensionTAKE ONE TABLET BY MOUTH DAILY 90 tablet ctive furosemide (Lasix) 20 mg tablet Indications:Bilateral leg edemaTake 1 tablet (20 mg) by mouth once daily. 90 tablet ctive metoprolol succinate XL (Toprol-XL) 100 mg 24 hr tablet Indications:Essential (primary) hypertensionTAKE ONE TABLET BY MOUTH DAILY 90 tablet ctive Active Problems ProblemNoted DateDiagnosed DateEssential (primary) pjxthbtcojsw73/13/2024reast ezcphl8404/14/2023 Encounters DateTypeDepartmentCare WveaIrxqlqfrolg70/25/2025Orders Only [email or web address] [address] [place] [address] Domingo Abreu, from Last 3 Months Immunizations ImmunizationAdministration DatesNext DueInfluenza, Mmwyslgdpgp51/01/2016 Influenza, injectable, zvinpflzugjl95/11/2018,01/19/2017,01/07/2016,12/27/2014, 01/05/2014Influenza, seasonal, oquugjorth84/14/2020,12/13/2018,12/29/2012Novel mvwrajhlc-M8F8-56, preservative-free01/17/2009Tdap vaccine, age 7 year and older (BOOSTRIX, ADACEL)07/07/2017 Family History Medical HistoryRelationNameCommentsNo Known ProblemsFatherNo Known Problems MotherRelationNameStatusCommentsFatherMother Social History Tobacco UseTypesPacks/DayYears UsedDateSmoking Tobacco: NeverSmokeless Tobacco: Never Tobacco Cessation:Counseling Given: Not Answered Alcohol UseStandard Drinks/WeekCommentsYes0 (1 standard drink = 0.6 oz pure alcohol)socialCommentsUnknownSex and Gender InformationValueDate RecordedSex Assigned at BirthNot on fileLegal AbqVxionp87/26/2022 9:53 AM EST Gender IdentityNot on fileSexual OrientationNot on file Last Filed Vital Signs Vital SignReadingTime TakenCommentsBlood Ntlnrlyo927/7002 11:10 AM EST Yccsn569704/14/2023 11:10 AM ESTTemperature--Respiratory Rate--Oxygen Saturation-- Inhaled Oxygen Concentration--Ulhxuf754 kg (221 lb)04/14/2023 11:10 AM ESTHeight 180.3 cm (5' 11 )04/14/2023 11:10 AM ESTBody Mass Index30.8202 11:10 AM EST Plan of Treatment Health MaintenanceDue DateLast DoneCommentsCT Bltecxgiwzdx99/11/1971Colonoscopy 1970FIT1970HIV Hoagiotlo01/11/1971Lipid Panel1970Sigmoidoscopy 1970Diabetes Ikccliprd14/11/1989Hepatitis C Jmndhktuf43/11/1989CKD: Urine Protein Kvsgzdaky81/11/1990Hepatitis B Vaccines (1 of 3 - 19+ 3-dose series) 1989Pneumococcal Vaccine (1 of 2 - PCV)1989HPV/Fbdvcy3410/11/1991MMR Vaccines (1 of 1 - Standard series)02/14/2009Zoster Vaccines (1 of 2)2020 Yearly Adult Lnbhqhlj59/02/117432/03/2023, 01/31/2022olorectal Cancer Screening 06/06/2024FIT-DNA (Cologuard)/08/2021Influenza Vaccine (#1) /, 11/14/2019, 12/13/2018, Additional history existsMammogram /, 05/08/2023, 03/26/2023, Additional history existsCOVID-19 Vaccine ( season)/08/2020, 11/15/2020ervical Cancer Zqoeyhkhi26/01/2027Pap Smear/4DTaP/Tdap/Td Vaccines (2 - Td or Tdap)/09/2017HIB VaccinesAged OutNo longer eligible based on patient's age to complete this topicHPV VaccinesAged OutNo longer eligible based on patient's age to complete this topicHepatitis A VaccinesAged OutNo longer eligible based on patient's age to complete this topicIPV VaccinesAged OutNo longer eligible based on patient's age to complete this topicMeningococcal VaccineAged OutNo longer eligible based on patient's age to complete this topic Rotavirus VaccinesAged OutNo longer eligible based on patient's age to complete this topic Procedures Procedure NamePriorityDate/TimeAssociated DiagnosisCommentsFL MODIFIED BARIUM SWALLOW STUDY11/24/2024 7:53 PM EDT XR ANKLE RIGHT 3+ VIEWS11/24/2024 7:53 PM EDT XR SKELETAL SURVEY QUUJSSAO04/25/2025 7:[address] CERVICAL SPINE WO IV AGATYQOH44/25/[address] FACIAL BONES WO IV FEQRNIUB65/25/2025 7:[address] HEAD WO IV KOBJHAGS60/25/2025 7:53 PM EDT from Last 3 Months Results * FL modified barium swallow study (11/24/2024 7:53 PM EDT)Anatomical Region LateralityModalityAbdominal, Head, NeckRadiographic ImagingSpecimen (Source) Anatomical Location / LateralityCollection Method / VolumeCollection Time Received Time11/24/2024 7:53 PM EDT Narrative 11/25/2024 6:55 AM EDT Exam Date/Time: 11/24/2024 19:53 EDT Reason for Exam: Pain, Traumatic Report IMPRESSION: QUESTION NONDISPLACED FRACTURE OF THE LATERAL SUPERIOR POLE OF THE PATELLA. EXAM: ??XR Knee Complete 4+ Views Left HISTORY: Knee pain TECHNIQUE: AP, lateral and oblique views of the knee obtained. COMPARISON: None available FINDINGS: Question nondisplaced fracture of the lateral superior pole of the patella seen on only one view. Correlation for point tenderness is recommended. Mild degenerative changes. Moderate knee joint effusion. Soft tissues are within normal limits. ?? Ordering Provider: Domingo Abreu FINAL REPORT Dictated: ??11/25/2024 6:52 am ? Yunior Reagan DO Signed (Electronic Signature): ??11/25/2024 6:52 am Signed by: ??Yunior Reagan DO Transcribed by: ??DP ? Technologist: ??[facility] Authorizing ProviderResult TypeResult StatusDomingo Abreu [facility] FLUOROSCOPY PROCEDURESFinal Result * XR skeletal survey complete (11/24/2024 7:53 PM EDT)Anatomical Region LateralityModalityMusculoskeletal, Body, Upper Extremities, Lower Extremities, Spine, Head, NeckRadiographic ImagingSpecimen (Source)Anatomical Location / LateralityCollection Method / VolumeCollection TimeReceived Time11/24/2024 7:53 PM EDT Narrative 11/25/2024 6:53 AM EDT Exam Date/Time: 11/24/2024 19:53 EDT Reason for Exam: Pain, Traumatic Report IMPRESSION: NO ACUTE OSSEOUS ABNORMALITY. EXAMINATION: XR Hand 3+ Views Left HISTORY: Hand pain COMPARISONS: None available TECHNIQUE: AP, lateral and oblique views of the hand obtained. FINDINGS: No acute fracture or dislocation. Advanced degenerative changes of the first carpometacarpal joint. Soft tissues are within normal limits. Ordering Provider: Domingo Abreu FINAL REPORT Dictated: ??11/25/2024 6:49 am ? Yunior Reagan DO Signed (Electronic Signature): ??11/25/2024 6:49 am Signed by: ??Yunior Reagan DO Transcribed by: ??DP ? Technologist: ??[facility] Authorizing ProviderResult TypeResult StatusDomingo Abreu [facility] XR PROCEDURES Final Result * XR ankle right 3+ views (11/24/2024 7:53 PM EDT)Anatomical RegionLaterality ModalityMusculoskeletal, Lower Extremities, AnkleRightRadiographic Imaging Specimen (Source)Anatomical Location / LateralityCollection Method / Volume Collection TimeReceived Time11/24/2024 7:53 PM EDT Narrative 11/25/2024 6:53 AM EDT Exam Date/Time: 11/24/2024 19:53 EDT Reason for Exam: Pain, Traumatic Report IMPRESSION: NO ACUTE OSSEOUS ABNORMALITY. EXAMINATION: XR Hand 3+ Views Right HISTORY: Hand pain COMPARISONS: None available TECHNIQUE: AP, lateral and oblique views of the hand obtained. FINDINGS: No acute fracture or dislocation. Joint spaces are preserved. Soft tissues are within normal limits. Ordering Provider: Domingo Abreu FINAL REPORT Dictated: ??11/25/2024 6:50 am ? Yunior Reagan DO Signed (Electronic Signature): ??11/25/2024 6:50 am Signed by: ??Yunior Reagan DO Transcribed by: ??DP ? Technologist: ??[facility] Authorizing ProviderResult TypeResult StatusDomingo Courtney Brady DOIMG XR PROCEDURES Final Result * CT cervical spine wo IV contrast (11/24/2024 7:53 PM EDT)Anatomical Region LateralityModalityNeuroComputed TomographySpecimen (Source)Anatomical Location / LateralityCollection Method / VolumeCollection TimeReceived Time11/24/2024 7:53 PM EDT Narrative 11/25/2024 8:39 AM EDT Exam Date/Time: 11/24/2024 20:21 EDT Reason for Exam: NECK TRAUMA, DANGEROUS INJURY MECHANISM;Trauma Report Impression: Refer to concurrent CT brain dictation. All CT scans at this facility use dose modulation, iterative reconstruction, and/or weight based dosing when appropriate to reduce radiation dose to as low as reasonably achievable. Tech Comments: GFR (mL/min/1/73m2) changed to w/o Contrast: None Ordering Provider: Domingo Abreu FINAL REPORT Dictated: ??11/25/2024 8:36 am ? Michael Pappas MD Signed (Electronic Signature): ??11/25/2024 8:36 am Signed by: ??Michael Pappas MD Transcribed by: ??DP ? Technologist: ??[facility] Authorizing ProviderResult TypeResult StatusDomingo Abreu DOI CT PROCEDURES Final Result * CT maxillofacial bones wo IV contrast (11/24/2024 7:53 PM EDT)Anatomical RegionLateralityModalityNeuroComputed TomographySpecimen (Source)Anatomical Location / LateralityCollection Method / VolumeCollection TimeReceived Time 11/24/2024 7:53 PM EDT Narrative 11/25/2024 8:39 AM EDT Exam Date/Time: 11/24/2024 20:21 EDT Reason for Exam: FACIAL TRAUMA, MOD-SEVERE;Trauma Report Impression: Refer to concurrent CT brain dictation. All CT scans at this facility use dose modulation, iterative reconstruction, and/or weight based dosing when appropriate to reduce radiation dose to as low as reasonably achievable. Tech Comments: GFR (mL/min/1/73m2) changed to w/o Contrast: None Ordering Provider: Domingo Abreu FINAL REPORT Dictated: ??11/25/2024 8:36 am ? Michael Pappas MD Signed (Electronic Signature): ??11/25/2024 8:36 am Signed by: ??Michael Pappas MD Transcribed by: ??DP ? Technologist: ??[facility] Authorizing ProviderResult TypeResult StatusDomingo Valdez Brady [facility] CT PROCEDURES Final Result * CT head wo IV contrast (11/24/2024 7:53 PM EDT)Anatomical RegionLaterality ModalityNeuroComputed TomographySpecimen (Source)Anatomical Location / LateralityCollection Method / VolumeCollection TimeReceived Time11/24/2024 7:53 PM EDT Narrative 11/25/2024 8:39 AM EDT Exam Date/Time: 11/24/2024 20:21 EDT Reason for Exam: HEAD TRAUMA, MOD-SEVERE;Other (please specify) Report IMPRESSION: ?? Left frontal scalp hematoma. No evidence of acute intracranial process. No evidence of acute facial bone fracture. No acute fracture or traumatic malalignment within the cervical spine. Paranasal sinus disease. CLINICAL HISTORY: ??Fall. Facial laceration. Carrying pumpkins, and tripped on concrete. On blood thinners. ?? TECHNIQUE: ??Serial axial unenhanced images were obtained from the ??vertex to the foramen magnum. ??Spiral, high resolution axial unenhanced images were obtained from the skull base to the cervicothoracic junction with sagittal and coronal planar reconstructions. ??Spiral high resolution axial unenhanced images were also obtained through the facial bones with sagittal and coronal planar reconstructions. All CT scans at this facility use dose modulation, iterative reconstruction, and/or weight based dosing when appropriate to reduce radiation dose to as low as reasonably achievable. COMPARISON: ??None. RESULT: BRAIN: ?? Acute change: ?? No evidence of an acute contusion or other acute parenchymal process. ?? Hemorrhage: ?No evidence of acute intracranial hemorrhage. ?? Mass lesion / Mass effect: ?? There is no evidence of an intracranial mass or extraaxial fluid collection. ??No significant mass effect. ?? Chronic change: ?? None significant via CT. Parenchyma: ??There is no significant volume loss. ?? Ventricles: ?? The ventricles are within normal limits of size and configuration for age. FACIAL BONES: Report Soft Tissues: ??Focal left frontal scalp hematoma. Facial bones: ??No evidence of an acute fracture in the visualized facial bones. Orbits: ??No evidence of an acute fracture. ??The globes are intact. Postsurgical changes. The soft tissue planes of the orbits are maintained. Paranasal Sinuses: ??Complete opacification of the left frontal sinus. Opacification of the ethmoid air cells, especially on the left. Polypoid thickening/opacification of the maxillary sinuses. Mastoid air cells: Clear. Foreign Bodies: ??No evidence of radioopaque foreign bodies. Other: ??No other significant findings. CERVICAL: Counting reference: ??Craniocervical junction. ?? Alignment: ?No traumatic malalignment. Straightening of the cervical lordosis, likely positional or related to muscle spasm. Craniocervical junction: ?Craniocervical junction is normal. Osseous structures/fracture: ?No evidence for acute fracture. No destructive osseous lesions. Cervical soft tissues: ?The paraspinal soft tissues planes are maintained. Canal and foramina, degenerative changes: Multilevel degenerative changes, especially of the mid to lower cervical spine. Ordering Provider: Domingo Abreu FINAL REPORT Dictated: ??11/25/2024 8:36 am ? Michael Pappas MD Signed (Electronic Signature): ??11/25/2024 8:36 am Signed by: ??Michael Pappas MD Transcribed by: ??DP ? Technologist: ??[facility] Authorizing ProviderResult TypeResult StatusDomingo Abreu [facility] PROCED[facility] Final Result from Last 3 Months Insurance Care Teams Team MemberRelationshipSpecialtyStart DateEnd Date Randy Lu DO [facility]07/21/22
--- OUTSIDE RECORDS SUMMARY | 2025-01-30 14:02 | XMS_ITS | Clinical Summary ---
Author Organization [employer] tem Address [id number] [address] [place] [address] Care Team Providers Care Round Kiln Drawer Name Role Phone Amy Collier RHEUMATOLOGIST-COSTUME TECHNICIAN Primary Care Provider + Allergies Active AllergyReactionsCriticalityNoted RuyoYybwaofpHirpqwlrSghoZhk58/28/2022 Ceftaroline OuztreyWabbpRyn96/12/6812MluqjlaeugKhcgqqzfUll77/28/2024oxycycline DxegHnm8712/09/2023MeperidineFacial ZwzukaelXeesbk03/12/2022TigecyclineRash, UxewiyutUus66/07/2024VancomycinOther (See Comments)Eudtfe0203/21/2024 Acute Kidney Injury Medications MedicationSigDispense QuantityRefillsLast FilledStart DateEnd DateStatus ELIQUIS 5 mg tablet Indications:deep venous thrombosisTake 1 tablet (5 mg total) by mouth in the morning and 1 tablet (5 mg total) before bedtime. Indications: blood clot in a deep vein of the extremities. Last dose MORNING OF IN PREP FOR SURG ANNE ON 01-06-2025 bridging with lovenox.09/18/2023ctive magnesium oxide 400 mg magnesium tablet Indications:hypomagnesemiaTake 400 mg by mouth in the morning. Indications: low amount of magnesium in the blood.Active potassium chloride (KLOR-CON ORAL) Indications:hypokalemiaTake 20 mEq by mouth in the morning and 20 mEq before bedtime. Indications: low amount of potassiumin the blood.08/05/2023ctive cyanocobalamin 1000 MCG tablet Take 1 tablet (1,000 mcg total) by mouth in the morning. 90 tablet ctive pyridoxine, vitamin B6, (B-6) 50 mg tablet Take 1 tablet (50 mg total) by mouth in the morning.5Active gabapentin (NEURONTIN) 300 mg capsule Indications:neuropathic painTake 1 capsule (300 mg total) by mouth in the morning and at bedtime Indications: neuropathic pain.Active omadacycline 150 mg tablet Take 300 mg by mouth in the morning.Active naloxone (NARCAN) 4 mg/actuation spray,non-aerosol nasal spray Administer 1 spray (4 mg total) into alternating nostrils as needed for opioid reversal. 1 each 5Active Additional Information Patient not taking.Reported on 12/07/2024 carvediloL (COREG) 12.5 mg tablet Take 1 tablet (12.5 mg total) by mouth in the morning and 1 tablet (12.5 mg total) before bedtime. 180 tablet 5Active acetaminophen (TYLENOL) 325 mg tablet Take 2 tablets (650 mg total) by mouth every 6 (six) hours. 30 tablet 5Active spironolactone (ALDACTONE) 25 mg tablet Take 0.5 tablets (12.5 mg total) by mouth in the morning. 45 tablet 5Active famotidine (PEPCID) 20 mg tablet Take 1 tablet (20 mg total) by mouth daily as needed.5Active folic acid (FOLVITE) 1 mg tablet Take 1 tablet (1,000 mcg total) by mouth.5Active prochlorperazine (COMPAZINE) 10 mg tablet Take 0.5 tablets (5 mg total) by mouth every 6 (six) hours as needed for nausea or vomiting. 30 tablet 5Active hydrOXYzine (ATARAX) 25 mg tablet Take 1 tablet (25 mg total) by mouth 3 (three) times a day as needed for itching. 30 tablet 5Active sertraline (ZOLOFT) 50 mg tablet Indications:Reactive depression,AnxietyTAKE 1 TABLET (50 MG TOTAL) BY MOUTH IN THE MORNING. 30 tablet 5Active fam-trastuzumab deruxtecn-nxki (ENHERTU) 100 mg chemo injection Infuse 5.4 mg/kg into a venous catheter every 21 days.Active NON FORMULARY Take 100 mg by mouth nightly. Med Name: Clofazimine 50mg capsules - Take 2 capsules at bedtimeActive Lactobacillus acidophilus (BACID) 500 million cell capsule Take 1 capsule (500 Million Cells total) by mouth in the morning and 1 capsule (500 Million Cells total) at noon and 1 capsule (500 Million Cells total) in the evening. Take with meals. Do all this for 30 days. 90 capsule 5Active scopolamine (TRANSDERM-SCOP) 1 mg/[address] 1 patch on the skin every third day. 4 patch 5Active imipenem-cilastatin (PRIMAXIN) 500 mg injection Infuse 500 mg into a venous catheter every 12 (twelve) hours. Bid08/04/2024 01/06/2025Discontinued(Stop Taking at Discharge) enoxaparin (LOVENOX) 40 mg/0.4 mL syringe Inject 0.4 mL (40 mg total) under the skin before bedtime. Bridging for debridement on 01/06/25.01/06/2025Discontinued(Stop Taking at Discharge) aztreonam 2,000 mg in sodium chloride 0.9 % 100 mL IVPB W/ADAPTER Infuse 2,000 mg into a venous catheter every 8 (eight) hours for 12 days. 1 each Expired linezolid (ZYVOX) 600 mg tablet Take 1 tablet (600 mg total) by mouth every 12 (twelve) hours for 12 days. 24 tablet Expired imipenem-cilastatin 500 mg in sodium chloride 0.9 % 100 mL IVPB W/ADAPTER Infuse 500 mg into a venous catheter every 12 (twelve) hours for 4 days. /12/2024Expired Active Problems ProblemNoted DateDiagnosed DateLeukocytosis, unspecified type01/04/2025Open wound of left chest wall, subsequent /14/2025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2024omplicated wound vlaqyhqse13/12/2025 Chronic deep vein thrombosis (DVT) of right lower bjzuegulf12/25/2025Breast wound, left, fofhcds4705/05/2024S/P breast reconstruction, left05/02/2024Pelvic mass in wystzh9004/13/2024Mycobacterium abscessus /02/2025Infection of deep incisional surgical site after uhxkznhrv87/04/2024KI (acute kidney injury) 12/02/2023ellulitis of left mgzuyi2511/26/2023S/P breast reconstruction, dotwlmtos51/28/2024Malignant neoplasm of lower-inner quadrant of right breast of female, estrogen receptor geqfrclu17/08/2024 Cancer Staging: Clinical:Stage IIIC(cT2, cN3, cM0, G3, ER+, HI-, HER2-) - Signed by Christy He MD on 05/21/2023 Asthma, exercise ktbengz0803/07/2022Iron deficiency bjxrbu4303/07/2022Secondary cataract of right eye2Recurrent UTI01/31/2022rthritis of left knee 2Cardiac jwnwejwrye32/28/2022 Overview (11/27/2021): trigeminy Epidermoid cyst of skin11/27/2021Internal derangement of right knee11/27/2021 Nvrddayzjnup13/28/2022rimary xqufifamexuowc50/28/2022Hypertensive kidney disease, stage II2Chronic skbpktvmwot68/23/6050Roghyxibkjkh70/23/2020 Complete tear, knee, anterior cruciate drptezmd77/01/2007 Encounters DateTypeDepartmentCare HenhQjuatlapiaj78/11/2025Telephone [facility] Internal Medicine - Family Medicine [address] [place] [address] Vianey Payton, farmworker diversified 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 [address] [place] [address] Kamar Weiss CMA 01/09/2025Documentation [facility] Infectious Disease [address] [facility] [address] [place] [address] Leelee Lieberman, ROBER-COSTUME TECHNICIAN 01/09/2025Telephone [facility] Medical Physician Sign In [address] [place] [address] Katya Noguera MD 01/06/2025Hospital Encounter [facility] - Surgery [address] [place] [address] Jhon Rosado MD 01/04/2025 5:07 PM EST - 01/06/2025 4:43 PM ESTHospital Encounter [facility] - 7 Oncology/Stroke [address] [place] [address] Tapan Kothari MD Nguyen, Domingo Thomas, MD Alvares, MD Claudine Washington, Elayne Thomas MD Leukocytosis, unspecified type (Primary Dx); Diarrhea of presumed infectious origin; Open wound of left chest wall, initial encounter; Pseudomonas infection Discharge Disposition: Home01/04/20255656Bkoofx63/05/2025Telephone [facility] Plastic and Reconstructive Surgery [address] [facility] [address] [place] [address] Viviane Lopez CMA 12/30/2024 9:30 AM EDTOffice Visit [facility] [address] [facility] [address] [facility] [place] [address] Marisela Davila, RHEUMATOLOGIST-COSTUME TECHNICIAN Encounter for postoperative care (Primary Dx); Mycobacterium abscessus infection; Complicated wound uwzzudtko74/31/2025Telephone [facility] [address] [facility] [address] [facility] [place] [address] Jhon Rosado MD 12/30/20244949Rbiels48/24/2025Telephone [facility] - Family Medicine [address] [place] [address] Deborah Weinberg, farmworker diversified crops Of Care12/14/2024Orders Only [facility] Internal Medicine - Family Medicine [address] [place] [address] Ref Prov, Not In System 12/13/2024 5:51 PM EDT - 12/21/2024 2:02 PM EDTHospital Encounter [facility] - 7 Oncology/Stroke [address] [place] [address] Mario Espinoza, Luna Jaeger MD Pothireddy, Ravi P, MD Wang, Li, MD Open wound of left chest wall, subsequent encounter (Primary Dx); Acute kidney injury Discharge Disposition: Home12/13/2024 3:30 PM EDTOffice Visit [facility] [address] [facility] [address] [facility] [place] [address] Marisela Davila, RHEUMATOLOGIST-COSTUME TECHNICIAN Encounter for postoperative care (Primary Dx); Mycobacterium abscessus infection; Complicated wound infection; Breast wound, left, hoiiugx3312/13/20247670Ukdjjl50/08/2025 2:30 PM EDTOffice Visit [facility] [address] [facility] [address] [place] [address] Marisela Davila, RHEUMATOLOGIST-COSTUME TECHNICIAN Encounter for postoperative care (Primary Dx); Mycobacterium abscessus infection; Complicated wound infection; Breast wound, left, xkewbqk3812/07/2024 1:30 PM EDTAncillary Procedure [facility] Orthopedic [facility] [address] [facility] [address] [place] [address] Acute pain of left knee12/07/2024 1:15 PM EDTOffice Visit [facility] Orthop[facility]ics [address] [facility] [address] [facility] [place] [address] Nathaniel Pacheco MD Acute pain of left knee (Primary Dx); Closed nondisplaced transverse fracture of left patella, initial encounter 12/07/20249274Ryglvz70/07/2025Telephone [facility] - Family Medicine [address] [place] [address] Vianey Payton RN Transition Of Care12/05/2024Telephone [facility] [address] [place] [address] Dee Dee Buck RN 12/05/2024Refill [facility] - Family Medicine [address] [facility] [place] [address] Amy Collier, RHEUMATOLOGIST-COSTUME TECHNICIAN Reactive depression; Kblchqh4012/02/2024Orders Only [facility] [employer] [facility] [place] [address] Transcribe, Orders Support User Pain (Primary Dx)11/30/2024 10:21 AM EDTAnesthesia Event [facility] - Surgery [address] [place] [address] Yasmin Rowan MD Matal, Marla L, MD 11/30/2024 9:30 AM EDT - 11/30/2024 10:45 AM EDTSurgery [facility] - Surgery [address] [place] [address] Jhon Rosado MD DEBRIDEMENT MQGDZN4311/30/2024 7:51 AM EDT - 12/02/2024 3:55 PM EDTHospital Encounter [facility] - Med-Surg/Intermediate [address] [place] [address] Jhon Rosado MD 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) (Primary Dx); Complicated wound infection Discharge Disposition: Home11/30/20247957Vhliyc88/26/2025 10:30 AM EDTSupport Visit [facility] On [address] [address] 11/25/2024Telephone [facility] [address] [facility] [place] [address] Jhon Rosado MD 11/24/2024 8:10 PM EDTAncillary Procedure [facility] [employer] [facility] [place] [address] Pain11/24/2024 11:30 AM EDTOffice Visit [facility] [address] [facility] [address] [place] [address] Jhon Rosado MD Breast wound, left, sequela (Primary Dx); Mycobacterium abscessus infection; S/P breast reconstruction, pyfiyizje99/25/2025Telephone [facility] [address] [facility] [address] [place] [address] Jhon Rosado MD 11/24/20242854Uopwpe06/09/2025 2:30 PM EDTOffice Visit [facility] [address] [facility] [address] [facility] [place] [address] Shereen Smallwood PA-C Breast wound, left, sequela (Primary Dx); Mycobacterium abscessus fsjuccknp64/09/8588Xooprd33/08/2025Telephone [facility] [address] [facility] [address] [place] [address] Shy Staton 11/01/2024Telephone [facility] Surgical Oncology [address] [facility] [address] [facility] [place] [address] Shanice Johnson RN from Last 3 Months Immunizations ImmunizationAdministration DatesNext DueCOVID-19, mRNA, LNP-S, PF, 30mcg/0.3mL Dose12/06/2020ovid-19, Mrna, Lnp-s, Pf, 30 Mcg/0.3 Ml Dose, Winston-sucrose 12/06/2020H1N1 Inj Preservative Free01/17/2009Influenza Nasal, Unspecified Omraquuknol68/01/2016Influenza, Im Trivalent Hlgcypyijstu74/14/2020,12/13/2018, 12/06/2014,12/29/2012Influenza, Injectable, Zhqulheybnis06/11/2018,01/19/2017, 01/07/2016,12/27/2014,01/05/2014Influenza, Zarlvsjmjif01/20/2020,12/13/2018, 12/10/2017,01/19/2017,01/07/2016,12/01/2015,12/27/2014,01/05/2014,12/29/2012 SARS-COV-2 (COVID-19) Vaccine, Cwivbkkuriq42/07/7668Hqwi51/08/2018 Social History Tobacco UseTypesPacks/DayYears UsedDateSmoking Tobacco: NeverPassive Smoke Exposure: PastSmokeless Tobacco: Never Tobacco Cessation:Counseling Given: Not Answered Alcohol UseStandard Drinks/WeekCommentsNot Currently0 (1 standard drink = 0.6 oz pure alcohol)Social Connection and Isolation PanelAnswerDate RecordedIn a typical week, how many times do you talk on the phone with family, friends, or neighbors?Twice a week02/27/2022How often do you get together with friends or relatives?Three times a week02/27/2022How often do you attend shinto or orthodox services?More than 4 times per year2Do you belong to any clubs or organizations such as shinto groups, unions, fraternal or athletic [place] ups, or school groups?Yes02/27/2022How often do you attend meetings of the clubs or organizations you belong to?1 to 4 times per year02/27/2022re you , , , , never , or living with a partner? 02/27/2022UDIT-CAnswerDate RecordedQ1: How often do you have a drink containing alcohol?2-3 times a week02/27/2022Q2: How many drinks containing alcohol do you have on a typical day when you are drinking?1 or Q3: How often do you have six or more drinks on one occasion?Less than xbxcxyt4702/27/2022verall Financial Resource Strain (CARDIA)AnswerDate RecordedHow hard is it for you to pay for the very basics like food, housing, medical care, and heating?Not hard at all02/27/2022HQ-2AnswerDate RecordedTotal Fjrgu883Finintermountain healthcare [place] of Occupational Health - Occupational Stress QuestionnaireAnswerDate RecordedDo you feel stress - tense, restless, nervous, or anxious, or unable to sleep at night because yourmind is troubled all the time - these days?To some extent 02/27/2022Exercise Vital SignAnswerDate RecordedOn average, how many days per week do you engage in moderate to strenuous exercise (like a brisk walk)?3 days 02/27/2022n average, how many minutes do you engage in exercise at this level? 60 min02/27/2022RAPARE - TransportationAnswerDate RecordedIn the past 12 months, has lack of transportation kept you from medical appointments or from getting medications?No01/04/2025In the past 12 months, has lack of transportation kept you from meetings, work, or from getting things needed for daily living?No01/04/2025HC UtilitiesAnswerDate RecordedIn the past 12 months has the electric, gas, oil, or water [email or web address] threatened to shut off services in your home?No01/04/2025Housing InstabilityAnswerDate RecordedAre you worried or concerned that in the next two months you may not have stable housing that you own, rent or stay in as a part of a household?No01/04/2025hildcareAnswerDate RecordedDo problems getting child development consultant make it difficult for you to work or study?No02/27/2022EmploymentAnswerDate RecordedDo you need help finding a local career center and/or a training program?No02/27/2022Hunger ScreeningAnswerDate RecordedWithin the past 12 months we worried whether our food would run out before we got money to buy more.Never True01/05/2025Within the past 12 months the food we bought just didn't last and we didn't have money to get more.Never True01/05/2025Purpose - LifeAnswerDate RecordedI have a purpose and direction in my life.Agree02/27/2022EducationAnswerDate RecordedWhat is the highest level of school you have completed or the highest degree you have received?Some college, no xzqaik8302/27/2022CommentsNoSex and Gender InformationValueDate RecordedSex Assigned at BirthNot on fileLegal ZjvEfwnpw53/06/2015 12:12 PM EDT Gender IdentityNot on fileSexual OrientationNot on file Last Filed Vital Signs Vital SignReadingTime TakenCommentsBlood Zyitjrrl198/7001/06/2025 3:19 PM EST Vvnzv896301/06/2025 3:19 PM SKYJymqzolezku05.8 ??C (98.2 ??F)01/06/2025 3:19 PM ESTRespiratory Lulb482203/08/2024 3:19 PM ESTOxygen Tqgwjvjymb22%01/06/2025 3:19 PM ESTInhaled Oxygen Concentration--Ygpsmq77.9 kg (182 lb 12.2 oz)01/06/2025 5:16 AM MNAJhkwtc010.3 cm (5' 11 )01/04/2025 7:50 PM ESTBody Mass Index25.49 01/04/2025 7:50 PM EST Plan of Treatment Health MaintenanceDue DateLast DoneCommentsAdult BMI Follow Up Plan1988 Zoster (Shingles) Vaccine (1 of 2)1989COVID-19 Vaccine ( season)/08/2020, 12/06/2020, 12/06/2020, Additional history exists Influenza Wymhpbe37/, 11/14/2019, 12/13/2018, Additional history existsDepression Khpskyouj04/12/2024Tobacco Screening /dult BMI Prnalrfpi32DTaP,Tdap and Td Vaccines (2 - Td or Tdap)Pap BdbhlErqvnamcqcyn27/02/2025, 06/01/2023, 12/27/2021 Goals GoalPatient Goal TypeAssociated ProblemsRecent ProgressPatient-Stated?Author return home GeneralYesHarris, Mariah, RN Note: Evaluation of progress towards goal: patient will return home at discharge with [facility] following for outpatient chemo/labs/IV antibiotics Autogenerated Goal Care PlanAutogenerated ProblemNoGriffin, [employer] ImplantedTypeAreaManufacturerDevice IdentifierShelf Expiration DateModel / Serial / LotExpander Tiss [id number] Brst [id number] Txtr Intgr Port Allox2 - [id number] - [id number] Implanted:Qty: 1 on 10/28/2023 by Jhon Rosado MD at [facility] ImplantLeft: BreastSIENTRA [id number] / [id number] / NAExpander Tiss [id number] Brst [id number] Txtr Intgr Port Allox2 - [id number] - [id number] Implanted:Qty: 1 on 10/28/2023 by Christy He MD at [facility]Other ImplantRight: BreastSIENTRA INC [id number] / [id number] / NA Procedures Procedure NamePriorityDate/TimeAssociated DiagnosisCommentsECG 12-LEADRoutine 01/06/2025 11:01 AM EST SXKBJIRJYMrwiosf79/07/2025 10:36 AM EST CBC WITH AUTO UBRAKGXPHWKWTzaincb09/07/2025 5:09 AM EST BKARHWXZDWibtsex47/07/2025 5:09 AM EST COMPREHENSIVE METABOLIC AHARTWidndup74/07/2025 5:[address] ABDOMEN AND PELVIS WO ZYVANwxsihx60/06/2025 5:55 PM EST OCCMRYABHTgcgfkh65/06/2025 5:03 PM EST HWHJKTWUNBrtljnu67/07/2024 5:03 PM EST HEMOGLOBIN AND HEMATOCRIT, OYJLCCoikhcr45/06/2025 1:25 PM EST TRANSFUSE RED BLOOD BUWLVJfscbxh98/06/2025 10:26 AM ESTCROSSMATCH RBCRoutine 01/05/2025 9:00 AM EST TYPE AND EJNDHXDttchxl70/06/2025 8:53 AM EST XR CHEST 1 BUUedamrm32/06/2025 6:49 AM EST CBC WITH AUTO YDLAEIXVXQTSSewmmwf13/06/2025 6:03 AM EST QCIAANYHEXawobzu73/06/2025 6:03 AM EST COMPREHENSIVE METABOLIC UZQSVVqlfwui17/06/2025 6:03 AM EST MQBFVUYYRPEXEQ98/06/2025 2:31 AM EST URINE OBAPTZTLMKM72/06/2025 2:31 AM EST SUPERFICIAL WOUND BEHNLHZKPDS06/05/2025 9:18 PM EST GI PANEL STOOL PATHOGEN ZUVPXXKHE82/05/2025 9:02 PM EST C DIFFICILE BY QOSHBQD32/05/2025 9:02 PM EST MRSA PCR NASAL DZJOATRT28/05/2025 9:02 PM EST LACTATE W/ YLSQERSQAK29/05/2025 6:43 PM EST BLOOD NIKXIEZMYAY49/05/2025 6:43 PM EST BLOOD HDLYUPNKLWG77/05/2025 6:43 PM EST ERYTHROCYTE SEDIMENTATION RATE (ESR)Add-On01/04/2025 4:06 PM EST C-REACTIVE PROTEINAdd-On01/04/2025 4:06 PM EST PROCALCITONINAdd-On01/04/2025 4:06 PM EST COMPREHENSIVE METABOLIC ZVOBCDQDY05/05/2025 4:06 PM EST CBC WITH AUTO VXWBEIIWREJPIJMM86/05/2025 4:06 PM EST CBC WITH AUTO QRHAFXUTWENGZzrenbe85/22/2025 5:55 AM EDT RNEUBOYVZJeylixz94/22/2025 5:55 AM EDT COMPREHENSIVE METABOLIC APTXBWglpudx09/22/2025 5:55 AM EDT PEHYWDPXNIfvkwje42/21/2025 4:22 PM EDT NQSHXWJUEYjvpizt32/21/2025 4:22 PM EDT IONIZED XCOZLUUBCKK44/21/2025 7:47 AM EDT CBC WITH AUTO RYFQDLUMOCIBGtweplt26/21/2025 6:23 AM EDT COMPREHENSIVE METABOLIC UWBRZNmunevc43/21/2025 6:23 AM EDT VFXKFXVPSYqmoijg17/21/2025 6:23 AM EDT US RETROPERITONEAL CVNAGOVKQfaanda68/20/2025 2:52 PM EDT ECG 12-WJQOVbxbaxb91/20/2025 10:14 AM EDT CBC WITH AUTO CBKCRPZCHDGKRgbvefr69/20/2025 6:21 AM EDT MILJOOGPUYmmiild59/20/2025 6:21 AM EDT COMPREHENSIVE METABOLIC MNXHDNlgvmaq98/20/2025 6:21 AM EDT FZOZOOOKNWHsuowrp50/19/2025 10:49 PM EDT CBC WITH AUTO VPSNXGUAZGWTFxcbmeo66/19/2025 5:52 AM EDT CPBNDNNHHVqgbwif32/19/2025 5:52 AM EDT COMPREHENSIVE METABOLIC QYGIEBcznzte63/19/2025 5:52 AM EDT CBC WITH AUTO XYTFEVIOYQXTIflosjm30/18/2025 5:53 AM EDT OITUWHWGNTadgiwl47/18/2025 5:53 AM EDT COMPREHENSIVE METABOLIC AZCKNQugrrbl56/18/2025 5:53 AM EDT RETICULOCYTESAdd-On12/16/2024 7:18 AM EDT CBC WITH AUTO CXJVKJLZFQQPWearpjy69/17/2025 7:18 AM EDT XPYQLAFXEVxgqmwe82/17/2025 7:18 AM EDT COMPREHENSIVE METABOLIC STQQHChunkgj05/17/2025 7:18 AM EDT ECG 12-YVGLZnqyswc89/16/2025 1:42 PM EDT CBC WITH AUTO KJAOHEJUHHRRSunthzu24/16/2025 6:24 AM EDT WUMIGGYTDRahttss20/16/2025 6:24 AM EDT COMPREHENSIVE METABOLIC OZRQDEquztlc81/16/2025 6:24 AM EDT HEMOGLOBIN AND HEMATOCRIT, MTDEMXhaztuk03/15/2025 9:11 PM EDT TRANSFUSE RED BLOOD PZATTRamczuo01/15/2025 5:08 PM EDTCT BRAIN WO CONTRoutine 12/14/2024 4:38 PM EDTSUPERFICIAL WOUND NSUOONTOmqcakc26/15/2025 4:36 PM EDT ANTIBODY KUBuivsrh80/15/2025 6:45 AM EDT COMPLETE ANTIBODY KIJFOHQbwpvwo08/15/2025 6:45 AM EDT TYPE AND OXOQCREncsxyq94/15/2025 6:45 AM EDT CBC (NO DIFF)STAT1 6:45 AM EDT CROSSMATCH MJGIfslkpv62/15/2025 6:30 AM EDT CBC WITH AUTO IGEODYOAZMWOHdexjjz64/15/2025 5:24 AM EDT JPYXZBINEQohdkzo94/15/2025 5:24 AM EDT COMPREHENSIVE METABOLIC PMHKQDywouiu08/15/2025 5:24 AM EDT BLOOD ALLELHYMHIG59/14/2025 6:27 PM EDT BLOOD AUFJGPJUHGI40/14/2025 6:27 PM EDT VITAMIN U11Uvu-Uu16/14/2025 6:25 PM EDT FERRITINAdd-On12/13/2024 6:25 PM EDT FOLATEAdd-On12/13/2024 6:25 PM EDT IRON AND TIBCAdd-On12/13/2024 6:25 PM EDT LACTATE W/ PELLLHYMTE34/14/2025 6:25 PM EDT BASIC METABOLIC DNUMCSGKI32/14/2025 6:25 PM EDT CBC WITH AUTO RMOFGESISMGPMKFK74/14/2025 6:25 PM EDT XR KNEE LT 3 XEIGicpjeu12/08/2025 1:36 PM EDT Acute pain of left knee BASIC METABOLIC CRFWVSnrguxj70/02/2025 5:59 AM EDT CBC WITH AUTO JDSHMRUFFRQZWozgnyz91/02/2025 5:59 AM EDT SEND OUT VDSAEbnnzyz51/01/2025 10:50 AM EDT TISSUE TDTJXNKAromquj26/01/2025 10:50 AM EDT FUNGAL CULTURE INCLUDES FUNGAL FEEBXWyhkjab24/01/2025 10:50 AM EDT ANAEROBIC KOYPZDONtebbou19/01/2025 10:50 AM EDT SURGICAL VUEPOAPTORcacxuz55/01/2025 10:49 AM EDT DEBRIDEMENT DLCLBB1611/30/2024 10:21 AM EDT BREAST INFECTION LEFT Case Notes DAVID 45MIN WORKING XR KNEE LT MIN 4 IUZDubkstl47/25/2025 8:10 PM EDT Pain from Last 3 Months Results * ECG 12 lead (01/06/2025 11:01 AM EST) Only the most recent of3 resultswithin the time period is included. Specimen (Source)Anatomical Location / LateralityCollection Method / Volume Collection TimeReceived Time01/06/2025 11:01 AM EST Narrative TRACEMASTERVUE - 01/09/2025 9:10 AM EST Authorizing ProviderResult TypeResult StatusChsanta fe indian hospitaldmitri Swann RHEUMATOLOGIST-CNPECG ORDERABLESFinal ResultPerforming OrganizationAddressCity/State/ZIP CodePhone Number TRACEMASTERVUE * [place] (01/06/2025 10:36 AM EST) Only the most recent of3 resultswithin the time period is included. ComponentValueRef RangeTest MethodAnalysis TimePerformed AtPathologist Signature POTASSIUM3.93.5 - 5.0 mmol/L103/08/2024 11:14 AM [facility] LAB Specimen (Source)Anatomical Location / LateralityCollection Method / Volume Collection TimeReceived TimeBloodVenous blood / Neejlhn5601/06/2025 10:36 AM EST 01/06/2025 10:41 AM EST Narrative Authorizing ProviderResult TypeResult StatusSimani POWERS BLOOD ORDERABLESFinal ResultPerforming OrganizationAddressCity/State/ZIP CodePhone Number [facility] [address] [place] [address], * (ABNORMAL) CBC auto differential (01/06/2025 5:09 AM EST) Only the most recent of13 resultswithin the time period is included. ComponentValueRef RangeTest MethodAnalysis TimePerformed AtPathologist Signature WBC16.9(H)4 - 11 X10^9/L103/08/2024 7:28 AM [facility] MAIN LABRBC Count 2.20(L)3.8 - 5.2 X10^12/L103/08/2024 7:28 AM [facility] LAB Hemoglobin8.1(L)11.7 - 15.5 g/dL01/06/2025 7:28 AM [facility] LAB Zskcjhwxma40.4(L)35 - 47 %01/06/2025 7:28 AM [facility] MAIN EPJSKQ770 (H)80 - 100 fL01/06/2025 7:28 AM [facility] MAIN EMBLZN61.6(H)27 - 34 pg 01/06/2025 7:28 AM [facility] QZFEGUU94.532 - 36 g/dL01/06/2025 7:28 AM [facility] FAFYMS44.9(H)11.5 - 15 %01/06/2025 7:28 AM [facility] LABPlatelet Qckny861562 - 450 X10^9/L103/08/2024 7:28 AM [facility] LABMPV8.47 - 12 fL01/06/2025 7:28 AM [facility] MAIN LABBands %3%01/06/2025 7:28 AM [facility] LABComment:This is an appended report. These results have been appended to a previously preliminary verified report.Neutrophils %93%01/06/2025 7:28 AM [facility] LAB Comment:This is an appended report. These results have been appended to a previously preliminary verified report.Lymphocytes %2%01/06/2025 7:28 AM [facility] MAIN LABComment:This is an appended report. These results have been appended to a previously preliminary verified report.Monocytes %1% 01/06/2025 7:28 AM [facility] LABComment:This is an appended report. These results have been appended to a previously preliminary verified re port.Basophils %1%01/06/2025 7:28 AM [facility] MAIN LABComment:This is an appended report. These results have been appended to a previously preliminary verified report.Neutrophils Absolute (M)16.2(H)1.5 - 6.6 X10^9/L103/08/2024 7:28 AM [facility] MAIN LABComment:This is an appended report. These results have been appended to a previously preliminary verified report.Lymphocytes Absolute0.3(L)1.0 - 3.5 X10^9/L103/08/2024 7:28 AM [facility] Comment:This is an appended report. These results have been appended to a previously preliminary verified report.Monocytes Absolute0.20.0 - 0.9 X10^9/L 01/06/2025 7:28 AM [facility] MAIN LABComment:This is an appended report. These results have been appended to a previously preliminary verified re port.Basophils Absolute0.20.0 - 0.2 X10^9/L103/08/2024 7:28 AM [facility] LABComment:This is an appended report. These results have been appended to a previously preliminary verified report.Anisocytosis2+01/06/2025 7:28 AM [facility] MAIN LABComment:This is an appended report. These results have been appended to a previously preliminary verified report.Polychromasia2+ 01/06/2025 7:28 AM [facility] MAIN LABComment:This is an appended report. These results have been appended to a previously preliminary verified re port.RBC Fragments1+01/06/2025 7:28 AM [facility] MAIN LABComment:This is an appended report. These results have been appended to a previously preliminary verified report.Differential TypeMANUAL EGBIGZTSLCIB66/07/2025 7:28 AM [facility] MAIN LABComment:This is an appended report. These results have been appended to a previously preliminary verified report.Specimen (Source) Anatomical Location / LateralityCollection Method / VolumeCollection Time Received TimeBloodVenous blood / UnknownCentral Line / Rqpnubd4101/06/2025 5:09 AM EST01/06/2025 5:41 AM EST Narrative Authorizing ProviderResult TypeResult StatusChBay[facility] RHEUMATOLOGISTPeechoLAB BLOOD ORDERABLESFinal ResultPerforming OrganizationAddressCity/State/[place] [address], * Magnesium (01/06/2025 5:09 AM EST) Only the most recent of12 resultswithin the time period is included. ComponentValueRef RangeTest MethodAnalysis TimePerformed AtPathologist Signature MAGNESIUM2.01.8 - 2.6 mg/dL01/06/2025 6:21 AM [facility] LAB Specimen (Source)Anatomical Location / LateralityCollection Method / Volume Collection TimeReceived TimeBloodVenous blood / UnknownCentral Line / Unknown 01/06/2025 5:09 AM EST01/06/2025 5:41 AM EST Narrative Authorizing ProviderResult TypeResult StatusChBayhealth [facility] RHEUMATOLOGIST-YelagoLAB BLOOD ORDERABLESFinal ResultPerforming OrganizationAddressCity/State/ZIP CodePhone Number [facility] [address] [place] [address], * (ABNORMAL) Comprehensive metabolic panel (01/06/2025 5:09 AM EST) Only the most recent of11 resultswithin the time period is included. ComponentValueRef RangeTest MethodAnalysis TimePerformed AtPathologist Signature QVNNQQ440031 - 146 mmol/L103/08/2024 6:21 AM [facility] MAIN LABPOTASSIUM 3.4(L)3.5 - 5.0 mmol/L103/08/2024 6:21 AM [facility] MAIN DIDFIOQZMUG626 98 - 109 mmol/L103/08/2024 6:21 AM [facility] LABCARBON ZKXFOCM3451 - 32 mmol/L103/08/2024 6:21 AM [facility] LABANION GAP65 - 15 mmol/L 01/06/2025 6:21 AM [facility] LABBLOOD UREA PQVCKCFH38 - 23 mg/dL 01/06/2025 6:21 AM [facility] LABCREATININE0.830.40 - 1.00 mg/dL 01/06/2025 6:21 AM [facility] MAIN LABComment:METHOD TRACEABLE TO IDMS RHDANUKAQJPZLGV2342 - 99 mg/dL01/06/2025 6:21 AM [facility] LAB CALCIUM8.2(L)8.5 - 10.5 mg/dL01/06/2025 6:21 AM [facility] LABTOTAL PROTEIN4.9(L)6.0 - 8.0 g/dL01/06/2025 6:21 AM [facility] LABALBUMIN 3.1(L)3.2 - 5.3 g/dL01/06/2025 6:21 AM [facility] LABALKALINE TWWKLBKVSBZ45226 - 130 U/L103/08/2024 6:21 AM [facility] FFILHU77 <=41 U/L103/08/2024 6:21 AM [facility] MAIN NIGRLC11<=31 U/L103/08/2024 6:21 AM [facility] MAIN LABBILIRUBIN,TOTAL0.70.3 - 1.2 mg/dL01/06/2025 6:21 AM [facility] MAIN LABEGFR Non-Race Irsicufpv47>=60 ml/min/1.73sq.m 01/06/2025 6:21 AM [facility] MAIN LABComment: Reported eGFR is based on the CKD-EPI 2020 equation that does not use a race coefficient. Specimen (Source)Anatomical Location / LateralityCollection Method / Volume Collection TimeReceived TimeBloodVenous blood / UnknownCentral Line / Unknown 01/06/2025 5:09 AM EST01/06/2025 5:41 AM EST Narrative Authorizing ProviderResult TypeResult StatusChgus Swann RHEUMATOLOGIST-CNPLAB BLOOD ORDERABLESFinal ResultPerforming OrganizationAddressCity/State/ZIP CodePhone Number [facility] [address] [place] [address], [place] * CT abdomen and pelvis without contrast (01/05/2025 5:55 PM EST)Anatomical RegionLateralityModalityBody, Abdomen, Body CoveraN/AComputed Tomography Specimen (Source)Anatomical Location / LateralityCollection Method / Volume Collection TimeReceived Time01/05/2025 6:02 PM EST Narrative 01/05/2025 6:[address] ABDOMEN AND PELVIS WO CONT CLINICAL HISTORY: ??Leukocytosis, diarrhea COMPARISON: 04/21/2024 TECHNIQUE: * ??CT of the abdomen and pelvis was performed without intravenous contrast. Coronal and sagittal reformatted images were generated and reviewed. Automated exposure control was utilized. * ??All CT scans at this facility use dose modulation, iterative reconstruction, and/or weight based dosing when appropriate to reduce radiation dose to as low as reasonably achievable. FINDINGS: Evaluation of the solid viscera and vascular structures is compromised without the use of IV contrast. Visualized pulmonary parenchyma appears grossly unremarkable. No pleural effusion. Small pericardial effusion. No intra-abdominal free air or free fluid. Noncirrhotic liver morphology. Multiple hypoattenuating hepatic lesions appear new from prior examination and measure up to 2.5 cm (2, 21). No biliary ductal dilatation. Nondistended bladder. Spleen, pancreas, adrenal glands appear unremarkable. No nephrolithiasis, hydronephrosis, or suspicious renal lesion. No pelvic free fluid. ??Hysterectomy. Small and large bowel are nondilated. Normal appendix. Predominantly liquid contents of the large bowel. No abdominal or pelvic lymphadenopathy. ??Nonaneurysmal abdominal aorta. Multilevel degenerative changes of the visualized thoracolumbar spine. Bilateral L5 spondylolysis. No acute osseous abnormality. IMPRESSION: * ??Prominently liquid contents of the large bowel suggestive of diarrheal state, possibly in the setting of infectious/inflammatory colitis. * ??Increasing number of hypoattenuating hepatic lesions now measuring up to 2.5 cm, suspicious forprogressive metastatic disease. Approved by Resident: Néstor Dougherty MD ??on 01/05/2025 6:02 PM Jackson Landon MD have personally reviewed the image(s) and agree with and/or edited the report Finalized by Jackson Andrews MD on 01/05/2025 6:15 PM Procedure Note Jackson Andrews MD - 01/05/2025 CT ABDOMEN AND PELVIS WO CONT CLINICAL HISTORY: Leukocytosis, diarrhea COMPARISON: 04/21/2024 TECHNIQUE: * CT of the abdomen and pelvis was performed without intravenouscontrast. Coronal and sagittal reformatted images were generated andreviewed. Automated exposure control was utilized. * All CT scans at this facility use dose modulation, iterativereconstruction, and/or weight based dosing when appropriate to reduceradiation dose to as low as reasonably achievable. FINDINGS: Evaluation of the solid viscera and vascular structures is compromisedwithout the use of IV contrast. Visualized pulmonary parenchyma appears grossly unremarkable. No pleural effusion. Small pericardial effusion. No intra-abdominal free air or free fluid. Noncirrhotic liver morphology. Multiple hypoattenuating hepatic lesionsappear new from prior examination and measure up to 2.5 cm (2, 21). Nobiliary ductal dilatation. Nondistended bladder. Spleen, pancreas, adrenal glands appear unremarkable. No nephrolithiasis, hydronephrosis, or suspicious renal lesion. No pelvic free fluid. Hysterectomy. Small and large bowel are nondilated. Normal appendix. Predominantlyliquid contents of the large bowel. No abdominal or pelvic lymphadenopathy. Nonaneurysmal abdominal aorta. Multilevel degenerative changes of the visualized thoracolumbar spine.Bilateral L5 spondylolysis. No acute osseous abnormality. IMPRESSION: * Prominently liquid contents of the large bowel suggestive of diarrhealstate, possibly in the setting of infectious/inflammatory colitis. * Increasing number of hypoattenuating hepatic lesions now measuring upto 2.5 cm, suspicious for progressive metastatic disease. Approved by Resident: Néstor Dougherty MD on 01/05/2025 6:02PM Jackson Landon MD have personally reviewed the image(s) and agree withand/or edited the report Finalized by Jackson Andrews MD on 01/05/2025 6:15 PM Authorizing ProviderResult TypeResult StatusMary Swann RHEUMATOLOGIST-CNPIMG CT ORDERABLESFinal Result * (ABNORMAL) Hemoglobin and hematocrit, blood (01/05/2025 1:25 PM EST) Only the most recent of2 resultswithin the time period is included. ComponentValueRef RangeTest MethodAnalysis TimePerformed AtPathologist Signature Hemoglobin8.1(L)11.7 - 15.5 g/dL01/05/2025 1:51 PM [facility] LAB Clfdporccw46.9(L)35 - 47 %01/05/2025 1:51 PM [facility] MAIN LABSpecimen (Source)Anatomical Location / LateralityCollection Method / VolumeCollection TimeReceived TimeBloodVenous blood / Ooldqvp9001/05/2025 1:25 PM EST01/05/2025 1:31 PM EST Narrative Authorizing ProviderResult TypeResult StatusElayne POWERS BLOOD ORDERABLESFinal ResultPerforming OrganizationAddressCity/State/ZIP CodePhone Number [facility] [address] * Transfuse RBC:1 Unit (01/05/2025 12:25 PM EST) Only the most recent of2 resultswithin the time period is included. Narrative Authorizing ProviderResult TypeResult StatusLafrancescoe A Selin PA-CBLOOD TRANSFUSION ORDERABLESFinal Result * Crossmatch RBC:Number of Units: 2 (01/05/2025 9:00 AM EST) Only the most recent of2 resultswithin the time period is included. ComponentValueRef RangeTest MethodAnalysis TimePerformed AtPathologist Signature Blood component [id number] [facility]OS[facility] MAIN LABUnit [id number] [facility] LABN[facility] ABOOFUNIV[facility]ITY [facility] LABUnit RHNEGCOMMUN[facility] MAIN LABCrossmatchCompatibleCOMMUNITY REG[facility] MAIN LABStatus of unit TRANSFUSEDCOMMUNITY REGIONAL MED[facility] MAIN LABExpiration [id number] HOSPITAL MAIN LABBB Type [id number] HOSPITAL MAIN LABBlood component [id number] [facility] LABUnit [id number] HOSPITAL MAIN LABUnit ABOOFSUMMA [facility]ALTH [facility] MAIN LABUnit RHNEGCOMMUNITY REG[facility] MAIN LABCrossmatch CompatibleCOMMUNITY REGIONAL MEDICAL [facility]ENTER MAIN LABStatus of unitEXPIRED/RELEASEDCOMM[facility]ITY REG[facility] MAIN LABExpiration [id number] HOSPITAL MAIN LABBB Type [id number] [facility] MAIN LABSpecimen (Source)Anatomical Location / Laterality Collection Method / VolumeCollection TimeReceived TimeBloodVenous blood / Wzpofyx4301/05/2025 9:00 AM EST01/05/2025 9:07 AM EST Narrative Authorizing ProviderResult TypeResult StatusLaurie A Selin PA-LED OpticsOOD BANK PRODUCT ORDERABLESEdited Result - FinalPerforming OrganizationAddress City/State/ZIP CodePhone Number [facility] [address] [place] [address], * Type and screen(includes indirect rehana) (01/05/2025 8:53 AM EST) Only the most recent of2 resultswithin the time period is included. ComponentValueRef RangeTest MethodAnalysis TimePerformed AtPathologist Signature ABOO103/07/2024 9:52 AM ESTTFL BB - PUZENNRRAAvzbrgda25/06/2025 9:52 AM ESTTFL BB - WELLSKYAntibody ViyjhnBhdykmqy00/06/2025 9:52 AM ESTTFL BB - WELLSKYSpecimen (Source)Anatomical Location / LateralityCollection Method / VolumeCollection TimeReceived TimeBloodVenous blood / Hmbrfow1101/05/2025 8:53 AM EST01/05/2025 9:06 AM EST Narrative Authorizing ProviderResult TypeResult StatusLaurie A Selin PA-CBLOOD BANK TEST ORDERABLESEdited Result - FinalPerforming OrganizationAddressCity/State/ZIP CodePhone Number [facility] [address] [place] [address], [place] * X-ray chest 1 view (01/05/2025 6:49 AM EST)Anatomical RegionLateralityModality Body, ChestN/AComputed RadiographySpecimen (Source)Anatomical Location / LateralityCollection Method / VolumeCollection TimeReceived Time01/05/2025 6:53 AM EST Narrative 01/05/2025 6:54 AM EST Single view chest History:Assess PICC placement ??Difficulty breathing, shortness of breath Comparison: 12/05/2023 Findings: Single portable view of the chest. Left PICC tip in the region of SVC. Stable cardiomediastinal silhouette. No new focal opacity, effusion or pneumothorax. Impression: Left PICC tip in the region of the SVC. No definitive acute process. Finalized by Jackson Andrews MD on 01/05/2025 6:54 AM Procedure Note Jackson Andrews MD - 01/05/2025 Single view chest History:Assess PICC placement Difficulty breathing, shortness of breath Comparison: 12/05/2023 Findings: Single portable view of the chest. Left PICC tip in the region of SVC.Stable cardiomediastinal silhouette. No new focal opacity, effusion orpneumothorax. Impression: Left PICC tip in the region of the SVC. No definitive acute process. Finalized by Jackson Andrews MD on 01/05/2025 6:54 AM Authorizing ProviderResult TypeResult StatusNicole Michaelle Guzman [place]-[facility] DIAGNOSTIC IMAGING ORDERABLESFinal Result * (ABNORMAL) Urinalysis (01/05/2025 2:31 AM EST) Only the most recent of2 resultswithin the time period is included. ComponentValueRef RangeTest MethodAnalysis TimePerformed AtPathologist Signature IAHLLSucmlkAhlxkd29/06/2025 3:33 AM [facility] LABTURBIDITYClear Clear01/05/2025 3:33 AM [facility] LABSPECIFIC GRAVITY1.0151.003 - 1.17228 3:33 AM [facility] LABNITRITENegativeNegative 01/05/2025 3:33 AM [facility] LABPH,URINE6.05.0 - 8.511 3:33 AM [facility] LABLEUKOCYTE VJFPYMMOWlknlromHgpzmgpv06/06/2025 3:33 AM [facility] VEXPEQCNCEBkfovtryHfksgczv41/06/2025 3:33 AM EST [facility] MAIN LABKETONES (URINE)Trace(A)Kusvegbt15/06/2025 3:33 AM [facility] LABUROBILINOGEN1.0 eu/dL0.2 eu/dL, 1.0 eu/dL01/05/2025 3:33 AM [facility] LABBILIRUBIN (URINE)LvztlrkfDutewrdq59/06/2025 3:33 AM [facility] LABBLOOD/DBSDkxenwefNuhvnlns89/06/2025 3:33 AM [facility] LABGLUCOSE (URINE)NegativeNegative, 250 mg/dL01/05/2025 3:33 AM [facility] LABSpecimen (Source)Anatomical Location / LateralityCollection Method / VolumeCollection TimeReceived TimeUrineUrine / Warqbim6501/05/2025 2:31 AM EST01/05/2025 3:30 AM EST Narrative Authorizing ProviderResult TypeResult StatusChBay[facility] RHEUMATOLOGIST-CNPURINE ORDERABLESFinal ResultPerforming OrganizationAddressty/State/ZIP CodePhone Number [facility] [address] [place] [address], [place] * Urine Culture Urine, Clean Catch Midstream (01/05/2025 2:31 AM EST)Component ValueRef RangeTest MethodAnalysis TimePerformed AtPathologist SignatureCULTURE RESULTS<10,000 ORGANISMS/mL NORMAL URO GENITAL FLORA01/06/2025 6:44 AM [facility] LABORATORYSpecimen (Source)Anatomical Location / LateralityCollection Method / VolumeCollection TimeReceived TimeUrineUrine specimen collection, clean catch / Uiitffy1701/05/2025 2:31 AM EST01/05/2025 3:30 AM EST Narrative Authorizing ProviderResult TypeResult StatusChBay[facility] RHEUMATOLOGIST-COSTUME TECHNICIAN MICROBIOLOGY - GENERAL ORDERABLESFinal ResultPerforming OrganizationAddress City/State/ZIP CodePhone Number [facility] [address] [place] [address], [place] [phone] * (ABNORMAL) Wound culture superficial includes gram stain (01/04/2025 9:18 PM EST) Only the most recent of2 resultswithin the time period is included. ComponentValueRef RangeTest MethodAnalysis TimePerformed AtPathologist Signature CULTURE RESULTSMany Carbapenem Resistant Pseudomonas aeruginosa(A)01/11/2025 10:02 AM [facility] LABORATORYGRAM STAIN>25 White Blood Cells/LPF(A)01/11/2025 10:02 AM [facility] LABORATORYGRAM STAIN 1 to 9 Squamous Epithelial Cells/LPF(A)01/11/2025 10:02 AM [facility] LABORATORYGRAM STAINFew Gram positive cocci in clusters(A)01/11/2025 10:02 AM [facility] LABORATORYSpecimen (Source)Anatomical Location / LateralityCollection Method / VolumeCollection TimeReceived TimeSwab Structure of left half of chest wall / Wsnzieq7901/04/2025 9:18 PM EST01/04/2025 9:30 PM EST Narrative [facility] - 01/11/2025 10:02 AM EST Along with Many Normal Skin Shadia. Leelee Lieberman requested aztreonam. OrganismAntibioticMethodSusceptibilityCarbapenem Resistant Pseudomonas aeruginosaAZTREONAM <=2: Susceptible Carbapenem Resistant Pseudomonas aeruginosaSusceptibility CommentCarbapenem Resistant Pseudomonas aeruginosaPIPERACIL/TAZOBACTAM 8.0: Susceptible Carbapenem Resistant Pseudomonas aeruginosaIMIPENEM >=16.0: Resistant Carbapenem Resistant Pseudomonas aeruginosaMeropenem 4.0: Intermediate Carbapenem Resistant Pseudomonas aeruginosaTobramycin <=1.0: Susceptible Carbapenem Resistant Pseudomonas aeruginosaCiprofloxacin 0.5: Susceptible Carbapenem Resistant Pseudomonas aeruginosaLevofloxacin 0.5: Susceptible Carbapenem Resistant Pseudomonas aeruginosaKPC (CARBAPENEMASE) Negative Carbapenem Resistant Pseudomonas dgfelnhtvyCJC24UBIH (CARBAPENEMASE) Negative Carbapenem Resistant Pseudomonas aeruginosaVIM (CARBAPENEMASE) Negative Carbapenem Resistant Pseudomonas aeruginosaIMP (CARBAPENEMASE) Negative Carbapenem Resistant Pseudomonas aeruginosaNDM (CARBAPENEMASE) Negative Carbapenem Resistant Pseudomonas aeruginosaCefepime Susceptible Comment:Carbapenem Resistant Organism (AUTOMOTIVE SALES SPECIALIST). The CARBA5 test only detects the 5 most prevalent carbapenemase producing mechanisms in the [place] Other carbapenemase producing mechanisms not detected by this test are rare. Authorizing ProviderResult TypeResult StatusChrisvalley cottage RHEUMATOLOGIST-COSTUME TECHNICIAN MICROBIOLOGY - GENERAL ORDERABLESEdited Result - FinalPerforming Organization AddressCity/State/ZIP CodePhone Number [facility] [address] [place] [address], * GI Panel(stool pathogen panel) (01/04/2025 9:02 PM EST)ComponentValueRef Range Test MethodAnalysis TimePerformed AtPathologist SignatureCAMPYLOBACTERNot DetectedNot Mfiuwlsk56/06/2025 1:09 AM [facility] PLESIOMONASNot DetectedNot Tsssuvvb58/06/2025 1:09 AM [facility] LABORATORYSALMONELLANot DetectedNot Cfatrvfy78/06/2025 1:09 AM [facility] LABORATORYVIBRIONot DetectedNot Bvzdteay29/06/2025 1:09 AM [facility] LABORATORYVIBRIO CHOLERAENot DetectedNot Mttqncuv82/06/2025 1:09 AM [facility] LABORATORYY. ENTEROCOLITICANot DetectedNot Ysvsuxpb67/06/2025 1:09 AM [facility] LABORATORYAGGREGATIVE E COLINot DetectedNot Tmfnabxi38/06/2025 1:09 AM [facility] LABORATORYPATHOGENIC E COLINot DetectedNot Ucjwwjnb06/06/2025 1:09 AM [facility] LABORATORYTOXIGENIC E COLINot DetectedNot Aebyijab03/06/2025 1:09 AM [facility] LABORATORYSHIGA TOXIN E COLINot DetectedNot Lbaqibjw21/06/2025 1:09 AM [facility] LABORATORYSHIGELLA-E COLINot DetectedNot Detected 01/05/2025 1:09 AM [facility] LABORATORYCRYPTOSPORIDIUMNot DetectedNot Mzhoqumm40/06/2025 1:09 AM [facility] CYCLOSPORANot DetectedNot Xlitmlpb66/06/2025 1:09 AM [facility] LABORATORYE HISTOLYTICANot DetectedNot Nnpewnbh94/06/2025 1:09 AM [facility] LABORATORYGIARDIA LAMBLIANot DetectedNot Detected 01/05/2025 1:09 AM [facility] LABORATORYADENOVIRUSNot DetectedNot Ovfgnaja97/06/2025 1:09 AM [facility] ASTROVIRUSNot DetectedNot Lzfaaurq72/06/2025 1:09 AM [facility] LABORATORYNOROVIRUSNot DetectedNot Umnrezpg12/06/2025 1:09 AM [facility] LABORATORYROTAVIRUS ANot DetectedNot Rtuwukcs88/06/2025 1:09 AM [facility] LABORATORYSAPOVIRUSNot DetectedNot Detected 01/05/2025 1:09 AM [facility] LABORATORYSpecimen (Source) Anatomical Location / LateralityCollection Method / VolumeCollection Time Received TimeStoolFeces / Axhtihi9601/04/2025 9:02 PM EST01/04/2025 9:31 PM EST Narrative Authorizing ProviderResult TypeResult StatusJacob Magui Benitez PA-CBODY FLUIDS AND STOOLS ORDERABLESFinal ResultPerforming OrganizationAddressCity/State/ZIP Code Phone Number [facility] [address] [place] [address], * Mrsa Pcr nasal swab (01/04/2025 9:02 PM EST)ComponentValueRef RangeTest Method Analysis TimePerformed AtPathologist SignatureMRSA PCR NASALNegativeNegative 01/05/2025 12:50 AM [facility] LABORATORYSpecimen (Source) Anatomical Location / LateralityCollection Method / VolumeCollection Time Received TimeSwabStructure of anterior naris / Iajuseq5101/04/2025 9:02 PM EST 01/04/2025 9:30 PM EST Narrative Authorizing ProviderResult TypeResult StatusChristina Swann RHEUMATOLOGIST-COSTUME TECHNICIAN MICROBIOLOGY - GENERAL ORDERABLESFinal ResultPerforming OrganizationAddress City/State/ZIP CodePhone Number [facility] [address] [place] [address], * C difficile by PCR (01/04/2025 9:02 PM EST)ComponentValueRef RangeTest Method Analysis TimePerformed AtPathologist SignatureTOXIGENIC C DIFFNegativeNegative 01/05/2025 12:23 AM [facility] [id number] MKS0Ocrlidubtvm NegativePresumptive Fvenyziw90/06/2025 12:23 AM [facility] LABORATORYComment:Assay methodology is nucleic acid amplification by real-time PCR for detection of C. difficile toxin gene sequences performed on [employer] Instrument System.Specimen (Source)Anatomical Location / Laterality Collection Method / VolumeCollection TimeReceived TimeStoolFeces / Unknown 01/04/2025 9:02 PM EST01/04/2025 9:31 PM EST Narrative Authorizing ProviderResult TypeResult Vicki DUFFY-CBODY FLUIDS AND STOOLS ORDERABLESFinal ResultPerforming OrganizationAddressCity/State/ZIP Code Phone Number [facility] [address] [place] [address], * Lactate w/ Reflex (01/04/2025 6:43 PM EST) Only the most recent of2 resultswithin the time period is included. ComponentValueRef RangeTest MethodAnalysis TimePerformed AtPathologist Signature LACTATE W/REFLEX0.60.4 - 2.0 mmol/L103/06/2024 7:29 PM [facility] LABSpecimen (Source)Anatomical Location / LateralityCollection Method / Volume Collection TimeReceived TimeBloodVenous blood / Hcabyue0901/04/2025 6:43 PM EST 01/04/2025 7:08 PM EST Narrative [facility] - 01/04/2025 7:29 PM EST Result did not trigger repeat Lactate, re-order if needed. Authorizing ProviderResult TypeResult StatusBen DUFFY-CLAB BLOOD ORDERABLESFinal ResultPerforming OrganizationAddressCity/State/ZIP CodePhone Number [facility] [address] [place] [address], * Blood culture (01/04/2025 6:43 PM EST) Only the most recent of4 resultswithin the time period is included. ComponentValueRef RangeTest MethodAnalysis TimePerformed AtPathologist Signature CULTURE RESULTSNO GROWTH 5 DAYS01/09/2025 10:02 PM [facility] LABORATORYSpecimen (Source)Anatomical Location / LateralityCollection Method / VolumeCollection TimeReceived TimeBloodVenous blood / UnknownCentral Line / Yorymnx4701/04/2025 6:43 PM EST01/04/2025 7:08 PM EST Narrative [facility] - 01/09/2025 10:02 PM EST Suboptimal volume of blood collected, Results may be affected. Authorizing ProviderResult TypeResult StatusBen DUFFY-CMICROBIOLOGY - GENERAL ORDERABLESFinal ResultPerforming OrganizationAddressCity/State/ZIP Code Phone Number [facility] [address] [place] [address], [place] [phone] * (ABNORMAL) Procalcitonin (01/04/2025 4:06 PM EST)ComponentValueRef RangeTest MethodAnalysis TimePerformed AtPathologist SignaturePROCALCITONIN0.17(H)<0.05 ng/mL01/04/2025 6:57 PM [facility] LABSpecimen (Source)Anatomical Location / LateralityCollection Method / VolumeCollection TimeReceived Time BloodVenous blood / Ctfnlwj0201/04/2025 4:06 PM EST01/04/2025 4:12 PM EST Narrative [facility] - 01/04/2025 6:57 PM EST <0.50 ng/mL - Low risk of severe sepsis and/or septic shock. <2.00 ng/mL - Recommend retesting within 6-24 hours. >2.00 ng/mL - High risk of sepsis and/or septic shock. Authorizing ProviderResult TypeResult StatusChgus Swann RHEUMATOLOGIST-CNPLAB BLOOD ORDERABLESFinal ResultPerforming OrganizationAddressCity/State/ZIP CodePhone Number [facility] [address] [place] [address], [place] * Erythrocyte Sedimentation Rate (ESR) (01/04/2025 4:06 PM EST)ComponentValueRef RangeTest MethodAnalysis TimePerformed AtPathologist SignatureESR, Erythrocyte Sedimentation Rpbe380 - 30 mm/h103/07/2024 8:27 AM [facility] LABORATORYSpecimen (Source)Anatomical Location / LateralityCollection Method / VolumeCollection TimeReceived TimeBloodVenous blood / Vhtxhce2101/04/2025 4:06 PM EST01/04/2025 4:12 PM EST Narrative Authorizing ProviderResult TypeResult StatusChBay[facility] RHEUMATOLOGIST-CNPLAB BLOOD ORDERABLESFinal ResultPerforming OrganizationAddressCity/State/ZIP CodePhone Number [facility] [address] [place] [address], [place] [phone] * C-reactive protein (01/04/2025 4:06 PM EST)ComponentValueRef RangeTest Method Analysis TimePerformed AtPathologist SignatureC REACTIVE PROTEIN0.2<=0.7 mg/dL 01/04/2025 7:21 PM [facility] LABSpecimen (Source)Anatomical Location / LateralityCollection Method / VolumeCollection TimeReceived Time BloodVenous blood / Xhuhdcf6601/04/2025 4:06 PM EST01/04/2025 4:12 PM EST Narrative Authorizing ProviderResult TypeResult StatusMary Hue RHEUMATOLOGIST-CNPLAB BLOOD ORDERABLESFinal ResultPerforming OrganizationAddressCity/State/ZIP CodePhone Number [facility] [address] [place] [address], [place] * Ionized calcium (12/20/2024 7:47 AM EDT)ComponentValueRef RangeTest Method Analysis TimePerformed AtPathologist SignatureIONIZED CALCIUM - ICAN4.84.5 - 5.3 mg/dL12/20/2024 8:16 AM [facility] LABSpecimen (Source) Anatomical Location / LateralityCollection Method / VolumeCollection Time Received TimeBloodVenous blood / UnknownCentral Line / Iombkyl6212/20/2024 7:47 AM EDT1 7:56 AM EDT Narrative Authorizing ProviderResult TypeResult StatusAmy Jack MDLAB BLOOD ORDERABLESFinal ResultPerforming OrganizationAddressCity/State/ZIP CodePhone Number [facility] [address] [place], [place] [id number], [place] * Ultrasound retroperitoneal complete (12/19/2024 2:52 PM EDT)Anatomical Region LateralityModalityBodyUltrasoundSpecimen (Source)Anatomical Location / LateralityCollection Method / VolumeCollection TimeReceived Time12/19/2024 3:14 PM EDT Narrative 12/19/2024 3:15 PM EDT Clinical history: Acute kidney injury decreased GFR Findings: Multiplanar sonography was performed of the kidneys and bladder. Comparison: ??None. ?? Right kidney 10.5 cm in length. Left kidney 12.2 cm in length. Cortical echogenicity and thickness are normal. No hydronephrosis nor perinephric fluid. Urinary bladder unremarkable. Jets not visualized. Impression: * ??Unremarkable renal and bladder ultrasound. Finalized by Brice Sanders MD on 12/19/2024 3:15 PM Procedure Note Brice Sanders MD - 12/19/2024 Clinical history: Acute kidney injury decreased GFR Findings: Multiplanar sonography was performed of the kidneys and bladder. Comparison: None. Right kidney 10.5 cm in length. Left kidney 12.2 cm in length. Cortical echogenicity and thickness are normal. No hydronephrosis norperinephric fluid. Urinary bladder unremarkable. Jets not visualized. Impression: * Unremarkable renal and bladder ultrasound. Finalized by Brice Sanders MD on 12/19/2024 3:15 PM Authorizing ProviderResult TypeResult StatusNayef Julianum RHEUMATOLOGIST-CNPIMG US ORDERABLESFinal Result * Reticulocytes (12/16/2024 7:18 AM EDT)ComponentValueRef RangeTest Method Analysis TimePerformed AtPathologist SignatureReticulocyte Count0.80.4 - 2.2 % 12/16/2024 12:52 PM [facility] LABSpecimen (Source)Anatomical Location / LateralityCollection Method / VolumeCollection TimeReceived Time BloodVenous blood / UnknownPort / Nzmlyqo3912/16/2024 7:18 AM EDT1 7:23 AM EDT Narrative Authorizing ProviderResult TypeResult StatusOlicruzito Ureña RHEUMATOLOGIST-CNPLAB BLOOD ORDERABLESFinal ResultPerforming OrganizationAddressCity/State/ZIP CodePhone Number [facility] [address] [place] [address], * CT brain without contrast (12/14/2024 4:38 PM EDT)Anatomical RegionLaterality ModalityNeuro, Head, Head and Neck, Neuro CoveraN/AComputed Tomography Narrative Authorizing ProviderResult TypeResult StatusNot In System Ref ProvIMG CT ORDERABLESFinal Result * Complete Antibody Screen (12/14/2024 6:45 AM EDT)ComponentValueRef RangeTest MethodAnalysis TimePerformed AtPathologist SignatureAntibody ScreenNegative 12/14/2024 11:24 AM EDTTFL BB - Randyimen (Source)Anatomical Location / LateralityCollection Method / VolumeCollection TimeReceived TimeBloodVenous blood / Uydckdm5512/14/2024 6:45 AM EDT1 6:57 AM EDT Narrative Authorizing ProviderResult TypeResult StatusStephanie William Herrera RHEUMATOLOGIST-CNPBLOOD BANK TEST ORDERABLESFinal ResultPerforming OrganizationAddressty/State/ZIP CodePhone Number [facility] [address] [place] [address], * Antibody ID (12/14/2024 6:45 AM EDT)ComponentValueRef RangeTest MethodAnalysis TimePerformed AtPathologist SignatureAntibody IDNo Antibody Xcshpdzw67/15/2025 11:37 AM EDTTFL VALERIANO - Randyimen (Source)Anatomical Location / Laterality Collection Method / VolumeCollection TimeReceived TimeBloodVenous blood / Ymarwoz5312/14/2024 6:45 AM EDT1 6:57 AM EDT Narrative Authorizing ProviderResult TypeResult StatusStephanie William Herrera RHEUMATOLOGIST-CNPBLOOD BANK TEST ORDERABLESFinal ResultPerforming OrganizationAddressty/State/ZIP CodePhone Number [facility] [address] [place] [address], * (ABNORMAL) CBC without diff (12/14/2024 6:45 AM EDT)ComponentValueRef Range Test MethodAnalysis TimePerformed AtPathologist AjbmospowSNL42.4(H)4 - 11 x10E9/L1 7:13 AM [facility] LABRBC Count1.87(L)3.8 - 5.2 X10E12/L1 7:13 AM [facility] LABHemoglobin6.8(LL)11.7 - 15.5 g/dL12/14/2024 7:13 AM [facility] UIGJabuexvemh68.5(L)35 - 47 %12/14/2024 7:13 AM [facility] UWFUYW031(H)80 - 100 fL 12/14/2024 7:[facility] YUMHJN73.5(H)27 - 34 pg12/14/2024 7:13 AM [facility] XQMAMDS56.432 - 36 g/dL12/14/2024 7:13 AM EDT [facility] HLYIWJ00.7(H)11.5 - 15 %12/14/2024 7:13 AM [facility] LABPlatelet Mldih249103 - 450 X10E9/L1 7:13 AM EDT [facility] LABMPV7.57 - 12 fL12/14/2024 7:13 AM [facility] LABSpecimen (Source)Anatomical Location / LateralityCollection Method / VolumeCollection TimeReceived TimeBloodVenous blood / Tdaktop6612/14/2024 6:45 AM EDT1 6:54 AM EDT Narrative Authorizing ProviderResult TypeResult StatusStephanie William Herrera RHEUMATOLOGIST-CNPLAB BLOOD ORDERABLESFinal ResultPerforming OrganizationAddressCity/State/ZIP Code Phone Number [facility] [address] * Iron and TIBC (12/13/2024 6:25 PM EDT)ComponentValueRef RangeTest Method Analysis TimePerformed AtPathologist EehaehxlwVVIE5621 - 170 ug/dL12/14/2024 8:[address] [facility] KDYRDBSYJYGCFOLLCDRHV062642 - 336 mg/dL 12/14/2024 8:[address] [facility] LABORATORYIRON UZRHMIL913756 - 425 ug/dL12/14/2024 8:[address] [facility] LABORATORYIRON DXGZHCSKOJ7190 - 50 % RQMUSWFFOK77/15/2025 8:[address] [facility] LABORATORYSpecimen (Source)Anatomical Location / LateralityCollection Method / VolumeCollection TimeReceived TimeBloodVenous blood / Seqhift1312/13/2024 6:25 PM EDT1 6:32 PM EDT Narrative Authorizing ProviderResult TypeResult StatusStephanie William Herrera RHEUMATOLOGIST-CNPLAB BLOOD ORDERABLESFinal ResultPerforming OrganizationAddressCity/State/ZIP Code Phone Number [facility] [address] [place] [address], * Folate (12/13/2024 6:25 PM EDT)ComponentValueRef RangeTest MethodAnalysis Time Performed AtPathologist SignatureFOLIC ACID7.9>5.8 ng/mL12/14/2024 8:43 AM EDT [facility] LABORATORYSpecimen (Source)Anatomical Location / LateralityCollection Method / VolumeCollection TimeReceived TimeBloodVenous blood / Iqprlvv7212/13/2024 6:25 PM EDT1 6:32 PM EDT Narrative Authorizing ProviderResult TypeResult StatusStephangem Herrera RHEUMATOLOGIST-CNPLAB BLOOD ORDERABLESFinal ResultPerforming OrganizationAddressCity/State/ZIP Code Phone Number [facility] [address] [place] [address], * (ABNORMAL) Ferritin (12/13/2024 6:25 PM EDT)ComponentValueRef RangeTest Method Analysis TimePerformed AtPathologist GyzoaeghwIOOGYXRA494(H)11 - 307 ng/mL 12/14/2024 1:56 AM [facility] LABSpecimen (Source)Anatomical Location / LateralityCollection Method / VolumeCollection TimeReceived Time BloodVenous blood / Woevpof4812/13/2024 6:25 PM EDT1 6:32 PM EDT Narrative Authorizing ProviderResult TypeResult StatusStephangem Katzelka RHEUMATOLOGIST-CNPLAB BLOOD ORDERABLESFinal ResultPerforming OrganizationAddressCity/State/ZIP Code Phone Number [facility] [address] [place] [address], [place] * (ABNORMAL) Vitamin B12 (12/13/2024 6:25 PM EDT)ComponentValueRef RangeTest MethodAnalysis TimePerformed AtPathologist SignatureVITAMIN B12>1,500(H)180 - 914 pg/mL12/14/2024 8:[address] [facility] LABORATORYSpecimen (Source)Anatomical Location / LateralityCollection Method / VolumeCollection TimeReceived TimeBloodVenous blood / Jtocywa6812/13/2024 6:25 PM EDT1 6:32 PM EDT Narrative Authorizing ProviderResult TypeResult StatusSteplissette Herrera RHEUMATOLOGIST-CNPLAB BLOOD ORDERABLESFinal ResultPerforming OrganizationAddressCity/State/ZIP Code Phone Number [facility] [address] [place] [address], * (ABNORMAL) Basic Metabolic Panel (12/13/2024 6:25 PM EDT) Only the most recent of2 resultswithin the time period is included. ComponentValueRef RangeTest MethodAnalysis TimePerformed AtPathologist Signature MIFDDC964843 - 146 mmol/L1 6:53 PM [facility] LABPOTASSIUM 3.63.5 - 5.0 mmol/L1 6:53 PM [facility] FJIFSEWXMNO26728 - 109 mmol/L1 6:53 PM [facility] LABCARBON QRZJHHO6252 - 32 mmol/L1 6:53 PM [facility] LABANION GAP75 - 15 mmol/L 12/13/2024 6:53 PM [facility] LABBLOOD UREA CIANSQFH514 - 23 mg/dL 12/13/2024 6:53 PM [facility] LABCREATININE1.58(H)0.40 - 1.00 mg/dL 12/13/2024 6:53 PM [facility] LABComment:METHOD TRACEABLE TO IDMS ELWVHFDUJLVBYNX1123 - 99 mg/dL12/13/2024 6:53 PM [facility] CALCIUM9.08.5 - 10.5 mg/dL12/13/2024 6:53 PM [facility] LABEGFR Non-Race Pyptvjict40(L)>=60 ml/min/1.73sq.m1 6:53 PM [facility] LABComment: Reported eGFR is based on the CKD-EPI 2020 equation that does not use a race coefficient. Specimen (Source)Anatomical Location / LateralityCollection Method / Volume Collection TimeReceived TimeBloodVenous blood / Jvfushz4412/13/2024 6:25 PM EDT 12/13/2024 6:32 PM EDT Narrative Authorizing ProviderResult TypeResult StatusMatthesanchez Heard White DOLAB BLOOD ORDERABLESFinal ResultPerforming OrganizationAddressCity/State/ZIP CodePhone Number [facility] [address] [place] [address], [place] * X-ray knee left 3 views (12/07/2024 1:36 PM EDT)Anatomical RegionLaterality ModalityLower Extremities, MSK, KneeLeftComputed RadiographySpecimen (Source) Anatomical Location / LateralityCollection Method / VolumeCollection Time Received Time12/07/2024 1:42 PM EDT Narrative 12/07/2024 1:43 PM EDT History: Recent fall. Pain and swelling. Study: Left Knee Three view study. Comparison: 11/24/2024 Impression: Vertical lucency through the lateral patella is appreciated and concerning for nondisplaced fracture. This has not changed in the interval. Alignment is maintained. Underlying osteoarthropathy is noted. Please correlate with physical examination.. Finalized by Radha Camilo MD on 12/07/2024 1:43 PM Procedure Note Radha Camilo MD - 12/07/2024 History: Recent fall. Pain and swelling. Study: Left Knee Three view study. Comparison: 11/24/2024 Impression: Vertical lucency through the lateral patella is appreciated and concerningfor nondisplaced fracture. This has not changed in the interval. Alignmentis maintained. Underlying osteoarthropathy is noted. Please correlate withphysical examination.. Finalized by Radha Camilo MD on 12/07/2024 1:43 PM Authorizing ProviderResult TypeResult Sharad PETERSON DIAGNOSTIC IMAGING ORDERABLESFinal Result * Send Out Test (11/30/2024 10:50 AM EDT)ComponentValueRef RangeTest Method Analysis TimePerformed AtPathologist SignatureTEST QSNJCOQ974/05/2025 9:42 AM ESTGENERIC RESULTING AGENCYSPECIMENTissue isolet left chest01/04/2025 9:42 AM ESTGENERIC RESULTING AGENCYSENT TONational Jdjtyk9101/04/2025 9:42 AM ESTGENERIC RESULTING AGENCYTEST RESULTSee separate report. View in OnBase or in EPIC. 01/04/2025 9:42 AM ESTGENERIC RESULTING AGENCYSpecimen (Source)Anatomical Location / LateralityCollection Method / VolumeCollection TimeReceived Time Tissue (Chest Wall, Left)11/30/2024 10:50 AM EDT1 11:13 AM EDT Narrative Authorizing ProviderResult TypeResult StatusJhon Rosado MDLAB ORDERABLESEdited Result - FinalPerforming OrganizationAddressCity/State/ZIP Code Phone Number GENERIC RESULTING AGENCY NA * (ABNORMAL) Tissue culture includes gram stain (11/30/2024 10:50 AM EDT) ComponentValueRef RangeTest MethodAnalysis TimePerformed AtPathologist SignatureCULTURE RESULTSRare Mycobacterium abscessus(A)01/16/2025 2:03 PM EST [facility] LABORATORYComment: Beaded Growth Observed At 2nd Day GRAM STAIN 0 White Blood Cells/[facility]03/18/2024 2:03 PM [facility] LABORATORYGRAM STAIN 0 Squamous Epithelial Cells/[facility]03/18/2024 2:03 PM [facility] LABORATORYGRAM STAINNo organisms seen01/16/2025 2:03 PM [facility] LABORATORYSpecimen (Source)Anatomical Location / LateralityCollection Method / VolumeCollection TimeReceived TimeTissue (Chest Wall, Left)11/30/2024 10:50 AM EDT1 11:13 AM EDTComment:Pre-op diagnosis: BREAST INFECTION LEFT Narrative [facility] - 01/16/2025 2:03 PM EST See Separate Report for susceptibility. Authorizing ProviderResult TypeResult StatusJhon Rosado MD MICROBIOLOGY - GENERAL ORDERABLESFinal ResultPerforming OrganizationAddress City/State/ZIP CodePhone Number [facility] [address] [place] [address], * (ABNORMAL) Fungal culture includes fungal smear (11/30/2024 10:50 AM EDT) ComponentValueRef RangeTest MethodAnalysis TimePerformed AtPathologist SignatureCULTURE RESULTSMycobacterium abscessus(A)01/18/2025 1:07 PM [facility] LABORATORYComment:See Separate Report for susceptibility. FUNGAL SMEARNo fungal elements seen01/18/2025 1:07 PM [facility] LABORATORYFUNGAL SMEAROn Concentrated Smear01/18/2025 1:07 PM [facility] LABORATORYSpecimen (Source)Anatomical Location / Laterality Collection Method / VolumeCollection TimeReceived TimeTissue (Chest Wall, Left)11/30/2024 10:50 AM EDT1 11:13 AM EDTComment:Pre-op diagnosis: BREAST INFECTION LEFT Narrative Authorizing ProviderResult TypeResult StatusJhon Rosado MD MICROBIOLOGY - GENERAL ORDERABLESFinal ResultPerforming OrganizationAddress City/State/ZIP CodePhone Number [facility] [address] [place] [address], * Anaerobic culture (11/30/2024 10:50 AM EDT)ComponentValueRef RangeTest Method Analysis TimePerformed AtPathologist SignatureCULTURE RESULTSNO GROWTH 5 DAYS 12/05/2024 9:[address] [facility] LABORATORYSpecimen (Source) Anatomical Location / LateralityCollection Method / VolumeCollection Time Received TimeTissue (Chest Wall, Left)11/30/2024 10:50 AM EDT1 11:13 AM EDTComment:Pre-op diagnosis: BREAST INFECTION LEFT Narrative Authorizing ProviderResult TypeResult StatusJhon Rosado MD MICROBIOLOGY - GENERAL ORDERABLESFinal ResultPerforming OrganizationAddress City/State/ZIP CodePhone Number [facility] [address] [facility] [address] [place] [phone], * Surgical Pathology (11/30/2024 10:49 AM EDT)ComponentValueRef RangeTest Method Analysis TimePerformed AtPathologist SignatureCase ReportSurgical Pathology Report ? Case: [id number] ? Authorizing Provider: ??Jhon Olearyg, ?? Collected: ? 11/30/2024 1049 ? MD ? Ordering Location: ? [facility] ??Received: ?11/30/2024 1228 ? a Division of [facility] - [facility] ? Pathologist: ? Lazarus Winter MD ? Specimen: ?Chest Wall, Left, Left chest wall tissue ? 12/07/2024 3:[address] [facility] LABORATORYFinal Diagnosisleft chest wall, debridement: Skin ulceration with underlying soft tissue acute suppurative inflammation. 12/07/2024 3:[address] [facility] at 1525 EDTGross DescriptionReceived in formalin labeled WIDMAN, left chest wall tissue is a 1.1 x 1.4 x 0.7 cm portion of mahmood-pink fibroadipose tissue. The resection margin is inked black. The specimen is serially sectioned to reveal mahmood-buckley smooth cut surfaces. The specimen is submitted entirely in cassettes And B. Time incised: 1049 Time in formalin: 1049 Cold ischemic time: Less than 1 minute Time in formalin before processin hours (2,ns,[id number], m6.1) SW12/07/2024 3:[address] [facility] LABORATORYEmbedded Mlhlun8112/07/2024 3:[address] [facility] LABORATORYSpecimen (Source)Anatomical Location / LateralityCollection Method / VolumeCollection TimeReceived TimeTissue (Chest Wall, Left)11/30/2024 10:49 AM EDT1 12:28 PM EDTComment:Pre-op diagnosis: BREAST INFECTION LEFT Narrative Authorizing ProviderResult TypeResult StatusMarlonistkeke Rosado MD PATHOLOGY/CYTOLOGY ORDERABLESFinal ResultPerforming OrganizationAddress City/State/ZIP CodePhone Number [facility] 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 Insurance * Guarantor: Yasmin Flannery TypeRelation to PatientDate of PhoneBilling AddressPersonal/SruyduBrxh08/11/1971 [facility] [address] [place] [phone] * Guarantor: Yasmin Flannery TypeRelation to PatientDate of PhoneBilling AddressPersonal/IylhfyPxwo80/11/1971 [facility] [address] [place] [phone] Advance Directives * Full Code (Latest Code Status on File) Date ActivatedDate GkxrtiicbpgXbwswqfs43/5/2025 5:50 PM01/06/2025 6:56 PM * Full Code Date ActivatedDate CecrgvulqyySfboagwh94/14/2025 8:33 PM10 4:07 PM * Full Code Date ActivatedDate InactivatedComments06/11/2024 1:36 AM06/15/2024 8:27 PM * Full Code Date ActivatedDate InactivatedComments05/02/2024 6:38 PM05/13/2024 3:07 PM * Full Code Date ActivatedDate VrrrqraafzzRgsdmywa51/04/2023 11:16 PM10/11/2023 6:06 PM Care Teams Team MemberRelationshipSpecialtyStart DateEnd Date Amy Collier, RHEUMATOLOGIST-COSTUME TECHNICIAN [address] [place] [address] PCP - [facility]11/28/16
--- OUTSIDE RECORDS SUMMARY | 2025-01-30 14:02 | XMS_ITS | Clinical Summary ---
Author Organization [facility] Address [address] [place] [address] Care Team Providers Care Document Management Analyst Name Role Phone Carolina Munguia APRN Unavailable [phone] Jessica Hope MD Unavailable [phone] Shereen Smallwood PA-C Unavailable [phone] Radha Martinez RN Unavailable Amy Collier NP Primary Care Provider [phone] Allergies Active AllergyReactionsCriticalityNoted GwhsLqgjozlbPbbqazzwKaywKwf24/28/2022 Ceftaroline FosamilOther: See BawmxujqOds99/02/2025DaptomycinOther: See Comments Low11/28/2023 Other Reaction(s): Flushing ZaypxtudqtaIcraPah69/09/2024MeperidineOther: See Comments,Rash,SwellingHigh 03/17/2018 Other Reaction(s): Other, Unknown QzmrejdbpppsHejd17/25/2024VancomycinOther: See AkqvmfiaEithmr39/25/2024 Other Reaction(s): Other Intolerance: experienced acute kidney injury during a hospitalization, suspected due to vancomycin. Acute Kidney Injury Medications MedicationSigDispense QuantityRefillsLast FilledStart DateEnd DateStatus 0.9 % sodium chloride (NACL 0.9%) infusion 5Active ELIQUIS 5 mg tab(s) Take 5 mg by mouth.4Active carvedilol (COREG) 12.5 mg tablet Take 12.5 mg by mouth.5Active cyanocobalamin (VITAMIN B-12) 1,000 mcg tab Take 1,000 mcg by mouth.12/10/2023ctive diazePAM (VALIUM) 5 mg tablet Take 1 tablet (5 mg total) by mouth every 12 (twelve) hours as needed for anxiety or muscle spasms (Give 30min prior to dressing change) for up to 10 days for hgmdacx3705/12/2024tive FEROSUL 325 mg (65 mg iron) tablet Take 1 tablet by mouth two times a day with meals.Active folic acid 1 mg tablet Take 1 mg by mouth.05/22/2024tive gabapentin (NEURONTIN) 300 mg capsule Take 300 mg by mouth two times a day.05/02/2023ctive hydrOXYzine HCl (ATARAX) 25 mg tablet Take 25 mg by mouth.05/12/2024tive imipenem/cilastatin sodium (IMIPENEM-CILASTATIN INTRAVENOUS) Inject 1,000 mg intravenously two times a day.05/22/2024tive magnesium oxide 400 mg magnesium tab Take 400 mg by mouth.Active omadacycline (NUZYRA) 150 mg tablet Take 300 mg by mouth.Active potassium chloride (K-TAB) 10 mEq tablet TAKE TWO TABLETS BY MOUTH TWICE A DAYActive pyridoxine, vitamin B6, (VITAMIN B6) 50 mg tablet Take 50 mg by mouth.03/16/2024tive spironolactone (ALDACTONE) 25 mg tablet Take 12.5 mg by mouth once daily.03/26/2023ctive CLOFAZIMINE, BULK, MISC Take 100 mg by mouth.Active famotidine (PEPCID) 20 mg tablet Take 1 tablet by mouth once daily. Patient should start on September 08, 2024. 10 tablet 09/08/2024tive acetaminophen (TYLENOL) 325 mg tablet Take 650 mg by mouth q 6 HR.07/29/2024tive naloxone 4 mg/actuation nasal spray (NARCAN) Use 4 mg in the nose at bedtime as needed.06/15/2024tive linezolid (ZYVOX) 600 mg tablet Take 600 mg by mouth.Expired Active Problems ProblemNoted DateDiagnosed UvweOluitvizqjmj30/18/2025BMI 27.0-27.9,adult 11/14/2024 Assessment & Plan (11/14/2024 2:56 PM EDT): Assessment: Body mass index is 27.32 kg/m??. Ksmydjqrp70/15/2025 Assessment & Plan (11/14/2024 2:51 PM EDT): Assessment: stable, no treatment PONV (postoperative nausea and vomiting)11/14/2024 Assessment & Plan (11/14/2024 2:33 PM EDT): Assessment: Reports with previous procedures, reports scopolamine patch works well DVT (deep venous thrombosis)11/14/2024 Assessment & Plan (11/14/2024 2:51 PM EDT): Assessment: chemo-related blood clot left leg, on eliquis. 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 She is currently on chemotherapy and antibiotic therapy and is being followed by Infectious Disease. She is asymptomatic at this time, the infection is stable and nonworsening, and the wound isclosed. (Staff message sent to surgeon 11/14/24) Posterior vitreous detachment of left eye11/10/2024ute renal culygun0909/08/2024 Iron deficiency dfffem3008/28/2024 Assessment & Plan (11/14/2024 2:56 PM EDT): Assessment: Stable. Denies bleeding. 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On complex medication ytgrwdl2308/27/2024Superficial incisional surgical site /28/4760Pitajumjboto73/28/2025 Assessment & Plan (11/14/2024 2:51 PM EDT): Assessment: stable and compliant with current medications Last 5 Encounter BP Readings: Date: BP: 11/14/2024 128/84 10/07/2024 122/81 09/16/2024 136/90 09/16/2024 149/92 09/07/2024 136/82 Cerebellar mass08/27/2024hemotherapy-induced dgqcpifotu51/28/2025erebellar buetvnxmwi50/28/4390Plkllp07/27/2025sthma, exercise vlyrmwi3303/07/2022 Assessment & Plan (11/14/2024 2:52 PM EDT): Assessment: stable and asymptomatic, no need for inhalers. No recent URI. Lungs clear to auscultation Denies use of supplemental oxygen Today, 99% on RA Hypertensive kidney disease, stage II05/24/2021 Resolved Problems ProblemNoted DateDiagnosed DateResolved DateTotal, mature senile cataract 509/ Encounters DateTypeDepartmentCare QasmDkfesndwqjl04/11/2025 3:00 PM ESTVisit (SP) Office Hematology/Oncology [address] [place] [address] Aurelia Oneill MD 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)01/10/2025 10:00 AM ESTOffice Visit Infectious Disease [address] [place] [address] Krystin Lizarraga MD 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 (Primary Dx); Kycuzif8101/10/20255259Lzdoay58/31/2025 11:30 AM EDTOffice Visit OPHT Ophthalmology [address] [place] [address] Jackson Galo, OD Diagnostics, Eye Tech And Pseudophakia (Primary Dx); Combined forms of age-related cataract of left eye; History of repair of retinal defect by laser fxkpivxwymonzxuc25/31/2025Travel 12/21/2024Telephone Infectious Disease [address] [place] [address] Krystin Lizarraga MD 12/15/2024 Patient Msg Infectious Disease [address] [place] [phone] Krystin Lizarraga MD Appointment Wbdllwh1812/09/2024[facility] [address] [place] [address] Carlos Mccain DO, PhD Secondary malignant neoplasm of brain (HCC) (Primary Dx)12/02/2024 12:30 PM EDT [facility] [address] [place] [address] Carlos Mccain DO, PhD Secondary malignant neoplasm of brain (HCC) (Primary Dx); 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)11/29/2024 1:27 PM EDT - 11/29/2024 5:23 PM [facility] Emergency Department [address] [place] [address] Rylie Juarez MD Prasnal, Monica, DO Pic Clogged Discharge Disposition: Home11/29/2024 10:13 AM EDT - 11/29/2024 1:26 PM EDT Hospital Encounter [facility] Radiology [place] [address] [place] [address] 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] Discharge Disposition: Home11/29/20243754Mesytx61/24/2025 9:45 AM EDTOffice Visit OPHT Ophthalmology [address] [place] [address] Jackson Galo, OD Diagnostics, Eye Tech And Pseudophakia (Primary Dx)11/18/2024Telephone Ophthalmology [address] [place], [place] [address] [address] Anitra Walters MD Patient Qegamd1311/17/2024 8:45 AM EDTOffice Visit OPHT Ophthalmology [address] [place] [address] Anitra Walters MD Diagnostics, Eye Tech And Pseudophakia (Primary Dx); Combined forms of age-related cataract of left eye11/16/2024 12:40 PM EDT - 11/16/2024 1:15 PM EDTSurgery Ambulatory Surgery [address] [place] [address] [place] [address] Anitra Walters MD COMPLEX EXTRACAPSULAR CATARACT REMOVAL W/ INS OF IOL W/O ENDOSCOPIC CYCLOPHOTOCOAGULATION PEDS11/16/2024 12:36 PM EDTAnesthesia Event Ambulatory Surgery [address] [place] [address] Mila Wells MD Miller, Christy, INTERACTIVE DIGITAL MEDIA SPECIALIST.POLICE OFFICER BOOKING 11/16/2024 11:24 AM EDT - 11/16/2024 1:19 PM EDTHospital Encounter Ambulatory Surgery [address] [facility] [place] [address] Anitra Walters MD Total, mature senile cataract [H25.89], Combined forms of age-related cataract of left eye [H25.812] Discharge Disposition: Home11/16/20245239Muiomm66/15/2025 3:00 PM EDTOffice Visit OPHT Ophthalmology [address] [facility] [place] [address] Total, mature senile cataract; Combined forms of age-related cataract of left eye11/14/2024 2:20 PM EDTPAT Pre Anesthesia [address] [place], [place] [address] [address] 2, Pacc Ania Pre-op examination (Primary Dx); PONV (postoperative nausea and vomiting); Deep vein thrombosis (DVT) of non-extremity vein, unspecified chronicity; Other migraine without status migrainosus, not intractable; Hypertension, unspecified type; Asthma, exercise induced (HCC); Breast cancer metastasized to multiple sites, right (HCC); Iron deficiency anemia secondary to inadequate dietary iron intake; BMI 27.0-27.9,adult11/14/20242354Ifdqyz36/11/2025 1:45 PM EDTOffice Visit OPHT Ophthalmology [address] [place], [place] [phone] Anitra Walters MD Diagnostics, Eye Tech And Total, mature senile cataract (Primary Dx); Combined forms of age-related cataract of left eye; History of repair of retinal defect by laser photocoagulation; Breast cancer metastasized to multiple sites, right (HCC); Posterior vitreous detachment of left eyefrom Last 3 Months Social History Tobacco UseTypesPacks/DayYears UsedDateSmoking Tobacco: NeverPassive Smoke Exposure: NeverSmokeless Tobacco: Never Tobacco Cessation:Counseling Given: Not Answered Alcohol UseStandard Drinks/WeekCommentsNot Currently0 (1 standard drink = 0.6 oz pure alcohol)Occasional [employer] UtilitiesAnswerDate RecordedIn the past 12 months has the Jebbit, gas, oil, or water [facility] threatened to shut off services in your home?No08/29/2024PHQ-2AnswerDate RecordedPHQ-2 jyduj906 Hunger Vital SignAnswerDate RecordedWithin the past 12 months, you worried that your food would run out before you got the money to buymore.Never true08/29/2024 Within the past 12 months, the food you bought just didn't last and you didn't have money to get more.Never true08/29/2024PRAPARE - TransportationAnswerDate RecordedIn the past 12 months, has lack of transportation kept you from medical appointments or from getting medications?No08/29/2024In the past 12 months, has lack of transportation kept you from meetings, work, or from getting things needed for daily living?No08/29/2024Housing Stability Vital SignAnswerDate RecordedIn the last 12 months, was there a time when you were not able to pay the mortgage or rent on time?No08/29/2024In the past 12 months, how many times have you moved where you were living?t any time in the past 12 months, were you homeless or living in a care home (including now)?No08/29/2024 Area Deprivation IndexAnswerDate RecordedNational Score (1-100), lower number is lower eqkx507607/21/2024State Score (1-10), lower number is lower tsio235 Data from: https://www.neighborhoodatlas.medicine.[facility]/. Last address used for txwuarnahpe[address]07/21/2024CommentsNoSex and Gender InformationValueDate RecordedSex Assigned at BirthNot on fileLegal SexFemale 12/02/2023 3:51 PM EDTGender IdentityNot on fileSexual OrientationNot on file Last Filed Vital Signs Vital SignReadingTime TakenCommentsBlood Pgmkloym436/8401/10/2025 2:04 PM EST Gaosx523601/10/2025 2:04 PM CBTIqzebtsffql42.5 ??C (97.7 ??F)01/10/2025 2:04 PM ESTRespiratory Lsfs757303/12/2024 2:04 PM ESTOxygen Xlmzvtlhbt488%01/10/2025 2:04 PM ESTInhaled Oxygen Concentration--Mtqwto88 kg (187 lb 6.3 oz)01/10/2025 10:13 AM SUWSourki730.3 cm (5' 11 )11/14/2024 2:21 PM EDTBody Mass Index26.14 11/14/2024 2:21 PM EDT Plan of Treatment DateTypeDepartmentCare Team (Latest Contact Info)Nrhxwfyjprx21/23/2025 11:30 AM ESTOffice Visit Infectious Disease [address] [phone] Krystin Lizarraga MD [address] [place] [address] granuloma breast apvwfijmm16/23/2025 4:30 PM ESTVisit (SP) Office Hematology/Oncology [address] [place] [phone] [place] [address] [place] [phone] [E11.084, Q12.7]Health MaintenanceDue DateLast DoneCommentsCervical Cancer Xhcmhejya20/11/1982Annual PCP Team Chronic Disease Visit1988Anxiety Qxtsiuptw30/11/1989Depression Kxpbshigp58/11/1989HIV Uijbgxacz51/11/1989 Hepatitis C Xxzedqjhc04/11/1989Hepatitis B Vaccine (1 of 3 - 19+ 3-dose series) 1989Pneumococcal Vaccine: 50+ (1 of 2 - PCV)1989hingrix Vaccine (1 of 2)1989CT Pdujlfamwcdb50/11/4703Rymqtjfgkcy88/11/2016Fecal Occult Blood 10/11/20152775Alalgfyevtrwy08/11/2016Covid-19 Vaccine (3 - Mixed Product risk series)110/08/2020, 11/15/2020ologuard (FIT-DNA)/08/2021 Colorectal Cancer Wwvoknyet70/07/2025Mammogram Rrtgbzhyn60/, 12/27/2021, 12/27/2021, Additional history existsInfluenza Vaccine (#1) 509/, 11/14/2019, 12/13/2018, Additional history existsSerum Xuktoivqpr30/07/202611/08/2024, 01/05/2025, 01/04/2025, Additional history existsLipid Wjenvwimm88/2DTaP,Tdap,Td Vaccine (2 - Td or Tdap) /09/2017Diabetes Udeyiilus39/08/2024, 01/05/2025, 01/04/2025, Additional history exists Medical Devices ImplantedTypeAreaManufacturerDevice IdentifierShelf Expiration DateModel / Serial / [id number] [id number] Implanted:Qty: 1 [facility] ANIA FHCIntraocular LensRight: Eye - LensALCON LABS KHIIXGUO23/25/2331ID40BY.200 / [id number] / Procedures Procedure NamePriorityDate/TimeAssociated DiagnosisCommentsCBC + DIFFRoutine 01/10/2025 11:12 AM EST 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 Abscess EXTERNAL LAB01/03/2025 2:26 PM EST BIOFLO MAX BARRIER 4F VRZOKUHTGS43/30/2025 3:54 PM EDT XR CHEST 1V FRONTAL KZWIVBVT29/30/2025 2:41 PM EDT MRI BRAIN WO/W KMNJEQhdzhab59/30/2025 11:37 AM EDT Secondary malignant neoplasm of brain (HCC) OPH BMTRY PRTL COHER INTRFRMTRY IO LENS PWR CAL11/16/2024 12:26 PM EDT Total, mature senile cataract Combined forms of age-related cataract of left eye XCAPSL CTRC RMVL INSJ IO LENS PROSTH CPLX WO ECP11/16/2024 12:26 PM EDT Total, mature senile cataract Combined forms of age-related cataract of left eye IOL BIOMETRY W/ IOL CALC OD (RIGHT EYE)Yqmbqeb6811/14/2024 3:05 PM EDT Total, mature senile cataract Combined forms of age-related cataract of left eye ASCAN ONLY - DIAGNOSTIC OD (RIGHT EYE)Nbzetvt8711/14/2024 3:05 PM EDT Total, mature senile cataract Combined forms of age-related cataract of left eye COMPREHENSIVE METABOLIC YXRSLRqzlnbr68/03/2025 4:17 AM EDT from Last 3 Months or Most Recently Relevant to Health Maintenance Results * (ABNORMAL) COMPLETE BLOOD COUNT AND DIFFERENTIAL (01/10/2025 11:12 AM EST) ComponentValueRef RangeTest MethodAnalysis TimePerformed AtPathologist RxlbrwtspIIP11.59(H)3.70 - 11.00 k/uL01/10/2025 2:17 PM ESTCLEUC [facility] MAIN LABRBC2.60(L)3.90 - 5.20 m/uL01/10/2025 2:17 PM [facility] LABHemoglobin9.7(L)11.5 - 15.5 g/dL01/10/2025 2:17 PM [facility] MWDZsfliyufxo73.6(L)36.0 - 46.0 %01/10/2025 2:17 PM [facility] GVEUQC350.0(H)80.0 - 100.0 fL01/10/2025 2:17 PM [facility] LAB MCH37.3(H)26.0 - 34.0 pg01/10/2025 2:17 PM [facility] LABMCHC 33.930.5 - 36.0 g/dL01/10/2025 2:17 PM [facility] LABRDW-CV21.8 (H)11.5 - 15.0 %01/10/2025 2:17 PM [facility] LABPlatelet Count 023894 - 400 k/uL01/10/2025 2:17 PM [facility] LABMPV9.99.0 - 12.7 fL01/10/2025 2:17 PM [facility] LABNRBC0.9/100 WBC 01/10/2025 2:17 PM [facility] LABAbsolute nRBC0.10(H)<0.01 k/uL 01/10/2025 2:17 PM [facility] LABNeutrophils %86.9%01/10/2025 2:17 PM [facility] LABAbs Neut (Segs + Bands)10.07(H)1.45 - 7.50 k/uL01/10/2025 2:17 PM [facility] LABLymphocytes %3.5%01/10/2025 2:17 PM [facility] LABAbs Lymph (Normal + Reactive)0.41(L)1.00 - 4.00 k/uL01/10/2025 2:17 PM [facility] LABMonocytes %6.1% 01/10/2025 2:17 PM [facility] LABAbs Mono0.71<0.87 k/uL 01/10/2025 2:17 PM [facility] LABEosin%3.5%01/10/2025 2:17 PM [facility] LABAbs Eosin0.41<0.46 k/uL01/10/2025 2:17 PM EST [facility] LABBasophils %0.0%01/10/2025 2:17 PM [facility] LABAbs Baso0.00<0.11 k/uL01/10/2025 2:17 PM [facility] LAB Platelet DcdtxenjEzapxfrs33/11/2025 2:17 PM [facility] LABRed Cell MorphReviewed: see results of individual yqqtpahwvhym37/11/2025 2:17 PM [facility] HQXMgteouagzxoxnLwgbig64/11/2025 2:17 PM [facility] UGMFewvqokykhloQxfzkni90/11/2025 2:17 PM [facility] YIGSnnthqxigmSmt52/11/2025 2:17 PM [facility] LABRBC Fragments Few(A)None Seen01/10/2025 2:17 PM [facility] LABTarget CellsFew 01/10/2025 2:17 PM [facility] LABTear Drop HctjhLno05/11/2025 2:17 PM [facility] LABHowell [place] RmtyxdEoypzuptwi50/11/2025 2:17 PM [facility] LABDiff JseiQdzgfg41/11/2025 2:17 PM EST [facility] LABSpecimen (Source)Anatomical Location / Laterality Collection Method / VolumeCollection TimeReceived TimeBloodBLOOD SPECIMEN / UnknownVenipuncture / Pxflmfi4701/10/2025 11:12 AM EST01/10/2025 11:12 AM EST Narrative [facility] - 01/10/2025 2:17 PM EST This is an appended report. These results have been appended to a previously verified report. Authorizing ProviderResult TypeResult StatusLucileirwin Monteiro MD LABORATORYFinal ResultPerforming OrganizationAddressCity/State/ZIP CodePhone Number [facility] [address] * EXTERNAL LAB (01/03/2025 2:26 PM EST) Narrative Authorizing ProviderResult TypeResult StatusExternal Provider PA-CLABORATORY Final Result * IR VASCULAR ACCESS TEAM PICC INSERTION RADIO (AK,AV,EU,FV,HL,PHILIP,MM,SP,UN) (11/29/2024 3:54 PM EDT)Anatomical RegionLateralityModalityOther Narrative 11/29/2024 3:54 PM EDT Candida Torres RN 11/29/2024 4:49 PM PICC NURSE INSERTION NOTE DATE OF PROCEDURE: November 29, 2024 ?? TIME OF PROCEDURE: 1540 ORDERING PHYSICIAN: Tracie Olmos INFORMED CONSENT: Obtained per hospital policy. INDICATION FOR LINE PLACEMENT: COPAT CONDITION OF LINE PLACEMENT: Sterile PRIMARY PROCEDURALIST: Jailyn Mar RN GAMING COMMISSIONER: Candida Torres RN PRE-PROCEDURE REVIEW ALLERGIES Allergen Reactions Meperidine ? Other: See Comments, Rash, Swelling ??Other Reaction(s): Other, Unknown Vancomycin ? Other: See Comments ??Other Reaction(s): Other Intolerance: experienced acute kidney injury during a hospitalization, suspected due to vancomycin. Acute Kidney Injury Tetracycline ? Rash Adhesive ? Rash Ceftaroline Fosamil ??Other: See Comments Daptomycin ? Other: See Comments ??Other Reaction(s): Flushing Doxycycline ?Rash Known History of Upper Venous Thrombosis: No Known History of Permanent Pacemaker or Automated Implanted Cardiac Device: No Previous Breast Surgery of Lymph Node Dissection: Yes, Right ?? Estimated Glomerular Filtration Rate Date Value Ref Range Status 09/01/2024 65 >=60 mL/min/1.73m Final ??Comment: ??Estimated Glomerular Filtration Rate (eGFR) is calculated using the 2020 CKD-EPI creatinine equation. This equation utilizes serum creatinine, sex, and age as parameters. The creatinine assay has traceable calibration to isotope dilution-mass spectrometry. Refer to KDIGO guidelines for clinical interpretation. In patients with unstable renal function, e.g. those with acute kidney injury, the eGFR may not accurately reflect actual GFR. History of Renal Disease: No Ultrasound Assessment Complete: Yes PROCEDURE NARRATIVE SAFE PRACTICE Hand Hygiene per Hospital Policy: Yes Skin Preparation Unit Dose Applicator Used: Chloraprep (CHG + alcohol), allowed to dry. Procedure Surface Cleansed with Antimicrobial Wipes: Yes Barriers Used by Proceduralist and all Assisting Personnel: Yes UNIVERSAL PROTOCOL / SAFETY CHECKLIST Procedure to be Performed: PICC Line insertion Sign In: A Moment of CARE was completed. Appropriate PPE (Personal Protective Equipment) worn by all providers involved with the procedure. Special equipment utilized [employer]. Patient/Surrogate Stated/Verified: Patient name, Date of , Relevant allergies, and The intended procedure Time Out: Relevant labs, photos, and/or imaging studies have been reviewed. Intended patient and procedure match the source document(s) (e.g. consent, H&P, associated studies [imaging, pathology]) match the intended patient and procedure. Consent obtained and matches the intended procedure. Yes. Correct side/site has been marked and visible. Medications required for this procedure are verified. Fire risk assessed and is not applicable. Implants: Correct implant(s) confirmed including size and side. Expiration date(s) reviewed. Sign Out: Specimens are all correctly labeled and sent. All instruments, equipment, possible retained foreign bodies are accounted for. Yes. The post-procedure plan of care has been communicated to the patient or surrogate. CATHETER PLACEMENT Brand: ??Bard ?Lot: ??[id number] Number of Lumens: 2 Type of PICC: Power Injectable PICC Lumen Size: 5 Burkinan PLACEMENT TECHNIQUE Lidocaine: Yes, ??Lidocaine 1% ??Volume 1 mL Subcutaneous Modified Seldinger Technique Used to Place Line via the Left Basilic Ultrasound Guidance: Yes Number of Attempts at Insertion: 1 Ensured control of guidewire during all aspects of the procedure: Yes Accounted for entire guidewire upon removal: Yes Internal Length: 48 cm ? External Length: 0 cm ?Trim Length: 48 cm Mid-Arm Circumference: 31 centimeters Post Insertion Pain Level Related to Procedure: 0 Action Taken to Address Pain: None needed Verified Placement: Blood return and flushes with ease and Tip location system or device indicates the tip is located in the SVC/CAJ. Line was Flushed with 20 mL normal saline Line Secured with: Securement device Sterile Dressing Applied and Dated: Yes Sterile Caps on all Ports Prior to Leaving Procedure Area: Yes, Disinfection caps applied SPECIMENS: None COMPLICATIONS: None Patient Education Materials: Given to patient The [facility] Line Insertion checklist was utilized during this procedure. QUESTIONS or PROBLEMS: Call [phone] SIGNATURE: Candida Torres RN PATIENT NAME: Yasmin Flannery DATE: November 29, 2024 TIME: 3:55 PM PAGER/CONTACT PHONE: ?? Authorizing ProviderResult TypeResult StatusHannaed Olmos PA-CVASCULAR IMAGING REGIONALFinal Result * XR CHEST 1V FRONTAL PORT (11/29/2024 2:41 PM EDT)Anatomical RegionLaterality ModalityChestRadiographic ImagingSpecimen (Source)Anatomical Location / LateralityCollection Method / VolumeCollection TimeReceived Time11/29/2024 2:41 PM EDT Impressions 11/29/2024 3:16 PM EDT IMPRESSION: Left PICC tip in lower SVC. Ore Bridge Operator: LETICIAB ?? Transcribe Date/Time: Nov 29 2024 ??3:10P Dictated by : MARIANN GARCES MD This examination was interpreted and the report reviewed and electronically signed by: MARIANN GARCES MD on Nov 29 2024 ??3:13PM ??EST Narrative 11/29/2024 3:16 PM EDT * * *Final Report* * * DATE OF EXAM: Nov 29 2024 ??2:41PM ?? VHX ?? [id number] ??- ??XR CHEST 1V FRONTAL PORT ??/ PROCEDURE REASON: Evaluate tube, line, ??or lead position ? * * * * Physician Interpretation * * * * EXAMINATION: ??CHEST RADIOGRAPH (PORTABLE SINGLE VIEW AP) Exam Date/Time: ??11/29/2024 2:41 PM CLINICAL HISTORY: Evaluate tube, line, ??or lead position PICC line eval MQ: ??XCPR_5 Comparison: ??08/27/2024 RESULT: Lines, tubes, and devices: ??Left PICC tip in lower SVC. Lungs and pleura: ??No consolidation, pleural effusion or pneumothorax. Cardiomediastinal silhouette: ??Stable cardiomediastinal silhouette. Other: ??Unchanged scoliosis. Bilateral chest wall and right axillary surgical clips. Procedure Note Provider, [facility] - 11/29/2024 * * *Final Report* * * DATE OF EXAM: Nov 29 2024 2:41PM VHX [id number] - XR CHEST 1V FRONTAL PORT / PROCEDURE REASON: Evaluate tube, line, or lead position * * * * Physician Interpretation * * * * EXAMINATION: CHEST RADIOGRAPH (PORTABLE SINGLE VIEW AP) Exam Date/Time: 11/29/2024 2:41 PM CLINICAL HISTORY: Evaluate tube, line, or lead position PICC line eval MQ: XCPR_5 Comparison: 08/27/2024 RESULT: Lines, tubes, and devices: Left PICC tip in lower SVC. Lungs and pleura: No consolidation, pleural effusion or pneumothorax. Cardiomediastinal silhouette: Stable cardiomediastinal silhouette. Other: Unchanged scoliosis. Bilateral chest wall and right axillary surgical clips. IMPRESSION IMPRESSION: Left PICC tip in lower SVC. Ore Bridge Operator: CARLOS Transcribe Date/Time: Nov 29 2024 3:10P Dictated by : MARIANN GARCES MD This examination was interpreted and the report reviewed and electronically signed by: MARIANN GARCES MD on Nov 29 2024 3:13PM EST Authorizing ProviderResult TypeResult StatusFairton Nickolas DUFFYPO-GVQS-[id number] Result * MRI BRAIN WO/W IVCON (11/29/2024 11:37 AM EDT)Anatomical RegionLaterality ModalityHeadMagnetic ResonanceSpecimen (Source)Anatomical Location / LateralityCollection Method / VolumeCollection TimeReceived Time11/29/2024 11:37 AM EDT Impressions 11/29/2024 11:55 AM EDT IMPRESSION: Decreased size of enhancement in the cerebellar vermis inferiorly with persistently prominent adjacent vasculature. ??Persistent elevated cerebral blood volume in the inferior cerebellum. Supratentorial foci of enhancement are stable to decreased in size since the prior study without any evidence of new intracranial metastatic disease. Ore Bridge Operator: CARLOS ?? Transcribe Date/Time: Nov 29 2024 11:47A Dictated by : LORNA BARBER MD This examination was interpreted and the report reviewed and electronically signed by: LORNA BARBER MD on Nov 29 2024 11:52AM ??EST Narrative 11/29/2024 11:55 AM EDT * * *Final Report* * * DATE OF EXAM: Nov 29 2024 11:37AM ?? [facility] ?? [id number] ??- ??MRI BRAIN WO/W IVCON ??/ PROCEDURE REASON: Secondary malignant neoplasm of brain (HCC) ? * * * * Physician Interpretation * * * * EXAMINATION: ??MRI BRAIN WO/W IVCON CLINICAL HISTORY: Metastatic disease. TECHNIQUE: ??Routine brain MRI protocol without and with contrast including diffusion images. MQ: ??MRBWOW_2 Contrast: ??18 mL Dotarem Central IV COMPARISON: 10/07/2024 RESULT: 3-dimensional coregistration software was utilized. ??Decrease in area and conspicuity of enhancement in the left inferior vermis since the prior study. Left middle frontal gyrus rounded focus of enhancement unchanged (image 28 of series 11). Faint punctate enhancement left inferior lateral operculum image 73 series 11 also unchanged. As on the prior study, the inferior vermis area of enhancement is associated with prominent vascular structures. Increased cerebral blood volume in the inferior cerebellum possibly related to vascularity noted above. ??This is nonspecific given the overall decrease in size of enhancement. ??Perfusion imaging was not performed prior examination. No other abnormal cerebral blood volume imaging. Minimal chronic change otherwise. ??Left frontal sinus opacification. ?? Normal ventricular size. ??No intracranial mass effect or extra-axial collection. Procedure Note Provider, [facility] - 11/29/2024 * * *Final Report* * * DATE OF EXAM: Nov 29 2024 11:37AM [facility] 0295 - MRI BRAIN WO/W IVCON / PROCEDURE REASON: Secondary malignant neoplasm of brain (HCC) * * * * Physician Interpretation * * * * EXAMINATION: MRI BRAIN WO/W IVCON CLINICAL HISTORY: Metastatic disease. TECHNIQUE: Routine brain MRI protocol without and with contrast including diffusion images. MQ: MRBWOW_2 Contrast: 18 mL Dotarem Central IV COMPARISON: 10/07/2024 RESULT: 3-dimensional coregistration software was utilized. Decrease in area and conspicuity of enhancement in the left inferior vermis since the prior study. Left middle frontal gyrus rounded focus of enhancement unchanged (image 28 of series 11). Faint punctate enhancement left inferior lateral operculum image 73 series 11 also unchanged. As on the prior study, the inferior vermis area of enhancement is associated with prominent vascular structures. Increased cerebral blood volume in the inferior cerebellum possibly related to vascularity noted above. This is nonspecific given the overall decrease in size of enhancement. Perfusion imaging was not performed prior examination. No other abnormal cerebral blood volume imaging. Minimal chronic change otherwise. Left frontal sinus opacification. Normal ventricular size. No intracranial mass effect or extra-axial collection. IMPRESSION IMPRESSION: Decreased size of enhancement in the cerebellar vermis inferiorly with persistently prominent adjacent vasculature. Persistent elevated cerebral blood volume in the inferior cerebellum. Supratentorial foci of enhancement are stable to decreased in size since the prior study without any evidence of new intracranial metastatic disease. Ore Bridge Operator: CARLOS Transcribe Date/Time: Nov 29 2024 11:47A Dictated by : LORNA BARBER MD This examination was interpreted and the report reviewed and electronically signed by: LORNA BARBER MD on Nov 29 2024 11:52AM EST Authorizing ProviderResult TypeResult StatusCarlos Mccain DO, PhDMRI-PAMAFinal Result * IOL BIOMETRY W/ IOL CALC OD (RIGHT EYE) (11/14/2024 3:05 PM EDT)Anatomical RegionLateralityModalityOther Narrative 11/14/2024 3:05 PM EDT Date of Procedure 11/14/2024. Utilities Operator Information Christie Payan, COA . Notes Measurements only - see Procedure Record under Scanned Documents for signed results. Authorizing ProviderResult TypeResult StatusAnitra Walters MDOPHTHALMOLOGYFinal Result * ASCAN ONLY - DIAGNOSTIC OD (RIGHT EYE) (11/14/2024 3:05 PM EDT)Anatomical RegionLateralityModalityOther Narrative 11/14/2024 3:05 PM EDT Date of Procedure 11/14/2024. Utilities Operator Information Christie Payan, COA . Notes Ascan report in paper chart and scanned to patient chart after post op period. A-SCAN RIGHT EYE: 23.17 A-SCAN LEFT EYE: 22.97 Authorizing ProviderResult TypeResult StatusAnitra Walters MDOPHTHALMOLOGYFinal Result from Last 3 Months Insurance Advance Directives * Full Code (Latest Code Status on File) Date ActivatedDate InactivatedComments08/26/2024 2:51 PM/04/2024 5:08 PMQuestion AnswerCommentsFull Code Order Discussed With:* Patient and Surrogate Decision Maker Surrogate Decision Maker Name:Jane Becker Surrogate Decision Maker Relationship:* Spouse Care Teams Team MemberRelationshipSpecialtyStart DateEnd Date Amy Collier NP [address] [place] [place] [address] PCP - GeneralFamily Medicine09/27/24 Carolina Munguia APRN [address] [facility] [address] [address] 12/04/23 Jessica Hope MD [address] [place] [address] ReferringHematology/Oncology06/14/24 Shereen Smallwood PA-C [address] [facility] [address] [place] [address] [facility] ReferringOrthopedics06/15/24 [place] [address] [place] [id number] Specialty Care CoordinatorHematology/Oncology07/31/24
--- OUTSIDE RECORDS SUMMARY | 2025-01-30 14:02 | XMS_ITS ---
Author Organization [employer] tem Address [id number] [address] [place] [address] Care Team Providers Care Care Team Assistant Name Role Phone Amy Collier FURNITURE ASSEMBLER AND INSTALLER-RECORD CLERK SALESPERSON Primary Care Provider + Active Problems ProblemNoted DateDiagnosed DateLeukocytosis, unspecified type01/04/2025Open wound of left chest wall, subsequent cjjozpkkp35/14/2025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2024omplicated wound ethymzsil54/12/2025 Chronic deep vein thrombosis (DVT) of right lower /25/2025reast wound, left, zexulvs2405/05/2024S/P breast reconstruction, left05/02/2024Pelvic mass in rtgbls7304/13/2024Mycobacterium abscessus cuhlhvnar55/02/2025Infection of deep incisional surgical site after jypsurfdd81/04/2024KI (acute kidney injury) 12/02/2023ellulitis of left rqqukg1111/26/2023S/P breast reconstruction, vnobxzsem96/28/2024Malignant neoplasm of lower-inner quadrant of right breast of female, estrogen receptor jlmitrgg16/08/2024 Cancer Staging: Clinical:Stage IIIC(cT2, cN3, cM0, G3, ER+, IA-, HER2-) - Signed by Christy He MD on 05/21/2023 Asthma, exercise rjvrltf4503/07/2022Iron deficiency sdpfwo0103/07/2022Secondary cataract of right eye2Recurrent UTI01/31/2022rthritis of left knee 2Cardiac mjllbonzij87/28/2022 Overview (11/27/2021): trigeminy Epidermoid cyst of skin11/27/2021Internal derangement of right knee11/27/2021 Hblrxpvhpqtj27/28/2022rimary debokofuwnjufq93/28/2022Hypertensive kidney disease, stage II2Chronic jrobpsjllan45/23/2878Bcovrwawvvyn45/23/2020 Complete tear, knee, anterior cruciate ayagrjtk55/01/2007 Current Treatment and Therapy Plans No current plan information found. Past Treatment and Therapy Plans No past plan information found. Lifetime Dose Tracking * ChemicalLifetime DoseAutomatic EntryManual EntryFluoroscopy9.68 mGy9.68 mGy0 mGy
--- NOTE | 2025-01-30 15:15 | PE_ITS ---
The [address] [address] Patient Name: IKE JONES MRN: [id number] date: 1970 Sex: F Assigned Patient Location: PETCT Current Patient Location: Accession/Order Number: [id number] Exam Date: 01/30/2025 14:16 Report Date: 01/31/2025 09:02 At the request of: AARTI NUNEZ MD Procedure: PET skull to mid thigh PET/CT WITH FUSION COMPARISON: 10/10/2024 CLINICAL DATA: Restaging of right breast cancer. Following the intravenous administration of 2.28 mCi of FDG, SPECT imaging in 3 planes was performed from the level the orbits through the groin. Patient's blood glucose level at the time of injection was 91 mg/dL. Spiral unenhanced CT was also performed for anatomic localization. The PET and CT images were fused. This CT exam was performed using one or more following dose reduction techniques: Automated exposure control, adjustment of the mA and/or kV according to patient size, or use of iterative reconstruction technique. NECK: No enlarged or hypermetabolic cervical lymph nodes are seen. Mild FDG uptake is again seen at the thyroid lobes, left side slightly greater than right. CHEST: No enlarged or hypermetabolic mediastinal or hilar lymph nodes are present. There are postoperative changes of left mastectomy. There is continued increased FDG uptake along the chest wall on that side. The overall size of the area of uptake and intensity of uptake has increased since comparison. There are SUV values up to 14.6. This is not the site of patient's reported neoplasm and findings could be postoperative however correlation with clinical will be needed to exclude any possibility of malignancy. There is one tiny axillary lymph node in the area with some increase FDG uptake and SUV of 4.6. There are also postoperative changes of right breast mastectomy. There is a subcutaneous fluid collection which is decreasing in size and may be resolving hematoma or seroma or possibly a collapsing implant. The internal mammary and right axillary lymph nodes with increased FDG uptake on the prior are no longer seen. No areas of pulmonary hypermetabolism are noted. There is some atelectasis and/or scarring. There is also right upper lobe calcified granuloma. ABDOMEN/PELVIS: No adrenal lesions are visualized. The FDG avid hepatic lesions seen on the prior no longer have increased FDG uptake. Also on the CT images, these areas are decreasing in size. No enlarged or hypermetabolic abdominal or pelvic lymph nodes are seen. There is still asymmetry at the left aspect of the vaginal cuff were mild increased FDG uptake remains. This has, however decreased from SUV of 7.6 to 4.8. There is physiologic uptake involving the urinary tact. MUSCULOSKELETAL: There is mild diffuse FDG uptake throughout the bony structures that may relate to therapy. PET/PET skull to mid thigh IMPRESSION: INCREASING SIZE AND INTENSITY OF THE AREAS OF FDG UPTAKE INVOLVING THE LEFT BREAST. THERE ARE POSTOPERATIVE CHANGES AND NO REPORTED HISTORY OF MALIGNANCY ON THAT SIDE. CLINICAL CORRELATION WILL BE NEEDED. TINY LEFT AXILLARY LYMPH NODE WITH MILD INCREASED FDG UPTAKE. RESOLUTION OF HYPERMETABOLIC RIGHT AXILLARY AND INTERNAL MAMMARY LYMPH NODES. DECREASING CT SIZE AND RESOLUTION OF HYPERMETABOLISM ASSOCIATED WITH PATIENT'S HEPATIC METASTASES. IMPROVING HYPERMETABOLISM ASSOCIATED WITH THE LEFT ASPECT OF THE VAGINAL CUFF. Impression dictated by: Seema Martin M.D. 01/31/2025 9:02 AM Dictation Location: [place] [address] Electronically authenticated by: [id number] Y Date: 01/31/2025 09:02
== END 2025-01-30 13:58 | disposition home or self-care (01) ==
LOC: PETCT 13:57
PROVIDERS: PCP Nurse Practitioner Family; Visit Provider Internal Medicine Hematology & Oncology
DX: C50.311 Malignant neoplasm of lower-inner quadrant of right female breast (principal); Z79.899 Other long term (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 therapy; D70.1 Agranulocytosis secondary to cancer chemotherapy; R11.2 Nausea with vomiting, unspecified; C77.9 Secondary and unspecified malignant neoplasm of lymph node, unspecified; Z15.09 Genetic susceptibility to other malignant neoplasm; Z79.818 Long term (current) use of other agents affecting estrogen receptors and estrogen levels; D64.81 Anemia due to antineoplastic chemotherapy; C77.3 Secondary and unspecified malignant neoplasm of axilla and upper limb lymph nodes; Z17.1 Estrogen receptor negative status [ER-]; Z17.22 Progesterone receptor negative status
CPT/HCPCS: 78815; A9552

== ENCOUNTER 2025-02-20 13:03 | Outpatient (RCR) | payer OTHER, SELFPAY ==
[2025-02-01] MEDS: EPOETIN ALFA-EPBX 20,000 UNIT/ML VIAL 20000 UNIT SUBQ (15:12)
[2025-02-01 15:17] VITALS: BP 109/84; PULSE 81; TEMP 36.3; O2SAT 98
[2025-02-07 09:54] VITALS: BP 130/69; PULSE 73; TEMP 35.8; O2SAT 99
[2025-02-07 10:34] LABS: Hematocrit 27.1 % (36.0-48.0); Hemoglobin 9.6 g/dL (12.0-16.0); Immature Granulocytes Abs Auto 0.08 10^3/uL (0.00-0.03); Immature Granulocytes Pct Auto 1.0 % (0.0-0.5); Lymphocytes Absolute Auto 0.8 10^3/uL (1.2-3.8); Mean Corpuscular HGB Conc 35.4 g/dL (29.9-35.2); Mean Corpuscular Hemoglobin 39.3 pg (26.7-34.0); Mean Corpuscular Volume 111.1 fL (81.0-99.0); Platelet Count 291 10^3/uL (150-450); Red Blood Count 2.44 10^6/uL (4.20-5.40); White Blood Count 8.3 10^3/uL (4.0-11.0)
[2025-02-07 10:54] LABS: Alanine Aminotransferase 131 U/L (14-59); Albumin Globulin Ratio 1.1; Albumin Level 3.0 g/dL (3.4-5.0); Alkaline Phosphatase 88 U/L (46-116); Anion Gap 13.5; Aspartate Amino Transferase 59 U/L (15-37); Blood Urea Nitrogen 8.0 mg/dL (7.0-18.0); Calcium 9.0 mg/dL (8.5-10.1); Carbon Dioxide 26.5 mmol/L (21.0-32.0); Chloride 107 mmol/L (98-107); Estimated GFR (African America >60 (>=60 mL/min/1.73m^2); Estimated GFR (Non-African Ame >60 (>=60 mL/min/1.73m^2); Globulin 2.7 g/dL; Glucose 78 mg/dL (74-106); Magnesium 1.5 mg/dL (1.8-2.4); Potassium 4.0 mmol/L (3.5-5.1); Sodium 143 mmol/L (136-145); Total Protein 5.7 g/dL (6.4-8.2)
[2025-02-07 11:01] LABS: Iron 50.0 ug/dL (50.0-170.0); Percent Iron Saturation 18.4 %; Total Iron Binding Capacity 272.0 ug/dL (250.0-450.0)
[2025-02-07 11:14] LABS: Ferritin 667.0 ng/mL (8.0-252.0)
[2025-02-07] MEDS: DEXTROSE 5 % IN WATER 250 ML 20 ML IV (11:24)
[2025-02-07] MEDS: PALONOSETRON HCL 0.25 MG/5 ML VIAL IV (11:33)
[2025-02-07] MEDS: DEXAMETHASONE SODIUM PHOSPHATE 10 MG in 0.9 % SODIUM CHLORIDE 100 ML 303 MG IV (11:36)
[2025-02-07] MEDS: EPOETIN ALFA-EPBX 20,000 UNIT/ML VIAL 20000 UNIT SUBQ (12:19)
[2025-02-07] MEDS: DEXTROSE 5% IV (12:22)
[2025-02-07] MEDS: [UNRECOGNIZED DRUG - OTHER] IV (12:22)
[2025-02-07] MEDS: WATER IV (12:22)
[2025-02-07 13:00] VITALS: BP 129/82; PULSE 74; TEMP 36.6; O2SAT 98
[2025-02-07] MEDS: PEGFILGRASTIM 6 MG/0.6 ML SQ (13:24)
--- NOTE | 2025-02-07 13:53 | PC.NURSE ---
1133: Pre-meds initiated at this time. Lunch tray ordered. Pt. denies needs
--- NOTE | 2025-02-07 13:56 | PC.NURSE ---
1222: IV Enhertu initiated as ordered. Pt. without needs or c/o. 1300: Enhertu infused without s&s of adverse reaction. VSS. Dressing to PICC line to left upper arm changed at this time using sterile technique. Approximately 1.5cm external cath noted. Small amount dried blood noted around site. Cleansed with chlorhexidine. New sterile stat lock and CHG dressing applied. Pt. tolerates without c/o. Both lines flush easily. New caps applied. Awaits chairside MD visit. 1343: Dr. Hope to chairside for MD visit. 1400: Pt. without c/o or needs. D/c'd amb. to home.
[2025-02-13 11:45] VITALS: BP 131/83; PULSE 85; TEMP 36.2; O2SAT 98
[2025-02-13] MEDS: EPOETIN ALFA-EPBX 20,000 UNIT/ML VIAL 20000 UNIT SUBQ (12:42)
== END 2025-03-01 23:59 | disposition home or self-care (01) ==
LOC: HEMC 13:03
PROVIDERS: PCP Nurse Practitioner Family; Visit Provider Internal Medicine Hematology & Oncology
DX: Z51.11 Encounter for antineoplastic chemotherapy (principal); C50.311 Malignant neoplasm of lower-inner quadrant of right female breast; Z79.899 Other long term (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 therapy; D70.1 Agranulocytosis secondary to cancer chemotherapy; C77.9 Secondary and unspecified malignant neoplasm of lymph node, unspecified; Z15.09 Genetic susceptibility to other malignant neoplasm; Z79.818 Long term (current) use of other agents affecting estrogen receptors and estrogen levels; D64.81 Anemia due to antineoplastic chemotherapy; C77.3 Secondary and unspecified malignant neoplasm of axilla and upper limb lymph nodes; Z17.1 Estrogen receptor negative status [ER-]; Z17.22 Progesterone receptor negative status; A31.8 Other mycobacterial infections; R11.2 Nausea with vomiting, unspecified; I10 Essential (primary) hypertension; Z90.710 Acquired absence of both cervix and uterus; Z90.13 Acquired absence of bilateral breasts and nipples
CPT/HCPCS: 36415; 36592; 78815; 80053; 80076; 82248; 82565; 82728; 83540; 83550; 83735; 85007; 85025; 85027; 96367; 96372; 96375; 96413; A9552; G0463; J1100; J1453; J2469; J2506; J9358; Q5106

== ENCOUNTER 2025-02-20 13:03 | Outpatient (RCR) | payer OTHER, SELFPAY ==
[2025-01-30 14:00] LABS: Hematocrit 25.7 % (36.0-48.0); Hemoglobin 8.9 g/dL (12.0-16.0); Immature Granulocytes Abs Auto 0.09 10^3/uL (0.00-0.03); Immature Granulocytes Pct Auto 1.1 % (0.0-0.5); Lymphocytes Absolute Auto 1.1 10^3/uL (1.2-3.8); Mean Corpuscular HGB Conc 34.6 g/dL (29.9-35.2); Mean Corpuscular Hemoglobin 37.9 pg (26.7-34.0); Mean Corpuscular Volume 109.4 fL (81.0-99.0); Platelet Count 277 10^3/uL (150-450); Red Blood Count 2.35 10^6/uL (4.20-5.40); White Blood Count 8.5 10^3/uL (4.0-11.0)
[2025-01-30 14:12] LABS: Alanine Aminotransferase 63 U/L (14-59); Albumin Globulin Ratio 1.1; Albumin Level 3.1 g/dL (3.4-5.0); Alkaline Phosphatase 104 U/L (46-116); Aspartate Amino Transferase 34 U/L (15-37); Estimated GFR (African America >60 (>=60 mL/min/1.73m^2); Estimated GFR (Non-African Ame >60 (>=60 mL/min/1.73m^2); Globulin 2.7 g/dL; Total Protein 5.8 g/dL (6.4-8.2)
[2025-02-13 12:08] LABS: Hematocrit 28.1 % (36.0-48.0); Hemoglobin 9.7 g/dL (12.0-16.0); Mean Corpuscular HGB Conc 34.5 g/dL (29.9-35.2); Mean Corpuscular Hemoglobin 38.3 pg (26.7-34.0); Mean Corpuscular Volume 111.1 fL (81.0-99.0); Platelet Count 200 10^3/uL (150-450); Red Blood Count 2.53 10^6/uL (4.20-5.40); White Blood Count 21.8 10^3/uL (4.0-11.0)
[2025-02-13 12:18] LABS: Alanine Aminotransferase 70 U/L (14-59); Albumin Globulin Ratio 1.1; Albumin Level 3.1 g/dL (3.4-5.0); Alkaline Phosphatase 117 U/L (46-116); Aspartate Amino Transferase 23 U/L (15-37); Estimated GFR (African America >60 (>=60 mL/min/1.73m^2); Estimated GFR (Non-African Ame 56 (>=60 mL/min/1.73m^2); Globulin 2.8 g/dL; Total Protein 5.9 g/dL (6.4-8.2)
[2025-02-13 12:23] LABS: Band Neutrophils Absolute 0.2 10^3/uL (0.0-0.3); Segmented Neut Absolute Manual 19.62 10^3/uL (1.4-6.5); Segmented Neutrophils % Manual 90.0 (43.0-75.0)
[2025-02-13 12:24] LABS: Anisocytosis 1+; Basophils Abs Manual 0.21 10^3/uL (0.00-0.10); Basophils Percent Manual 1.0 % (0.2-2.0); Eosinophils Absolute Manual 0.43 10^3/uL (0.00-0.70); Eosinophils Percent Manual 2.0 % (0.9-7.0); Lymphocytes Absolute Manual 1.09 10^3/uL (1.20-3.80); Lymphocytes Percent Manual 5.0 % (20.5-60.0); Macrocytosis 2+; Monocytes Absolute Manual 0.21 10^3/uL (0.30-0.80); Monocytes Percent Manual 1.0 % (1.7-12.0)
--- NOTE | 2025-02-13 12:52 | PC.NURSE ---
1200 here for blood draw, also had blood draw for Dr. Hope. No charge generated for draw on this account
[2025-02-20 13:45] LABS: Hematocrit 27.5 % (36.0-48.0); Hemoglobin 9.4 g/dL (12.0-16.0); Immature Granulocytes Abs Auto 0.11 10^3/uL (0.00-0.03); Immature Granulocytes Pct Auto 1.2 % (0.0-0.5); Lymphocytes Absolute Auto 1.0 10^3/uL (1.2-3.8); Mean Corpuscular HGB Conc 34.2 g/dL (29.9-35.2); Mean Corpuscular Hemoglobin 38.2 pg (26.7-34.0); Mean Corpuscular Volume 111.8 fL (81.0-99.0); Platelet Count 222 10^3/uL (150-450); Red Blood Count 2.46 10^6/uL (4.20-5.40); White Blood Count 9.3 10^3/uL (4.0-11.0)
[2025-02-20 13:59] LABS: Alanine Aminotransferase 58 U/L (14-59); Albumin Globulin Ratio 1.2; Albumin Level 3.2 g/dL (3.4-5.0); Alkaline Phosphatase 98 U/L (46-116); Aspartate Amino Transferase 30 U/L (15-37); Estimated GFR (African America >60 (>=60 mL/min/1.73m^2); Estimated GFR (Non-African Ame >60 (>=60 mL/min/1.73m^2); Globulin 2.7 g/dL; Total Protein 5.9 g/dL (6.4-8.2)
== END 2025-03-01 23:59 | disposition home or self-care (01) ==
LOC: INF 13:03
PROVIDERS: PCP Nurse Practitioner Family; Visit Provider Student in an Organized Health Care Education/Training Program
DX: A31.8 Other mycobacterial infections (principal); C50.311 Malignant neoplasm of lower-inner quadrant of right female breast; Z79.899 Other long term (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 therapy; D70.1 Agranulocytosis secondary to cancer chemotherapy; R11.2 Nausea with vomiting, unspecified; C77.9 Secondary and unspecified malignant neoplasm of lymph node, unspecified; Z15.09 Genetic susceptibility to other malignant neoplasm; Z79.818 Long term (current) use of other agents affecting estrogen receptors and estrogen levels; D64.81 Anemia due to antineoplastic chemotherapy; C77.3 Secondary and unspecified malignant neoplasm of axilla and upper limb lymph nodes; Z17.1 Estrogen receptor negative status [ER-]; Z17.22 Progesterone receptor negative status
CPT/HCPCS: 36592; 78815; 80076; 82248; 82565; 85007; 85025; 85027; A9552